=== PATIENT | female | born 1990 | race African-American/Black ===

== ENCOUNTER 2023-08-04 13:28 | Inpatient (IN) | payer BC, SELFPAY ==
[2023-08-04] VITALS (29 sets, daily range): BP systolic 138–201; BP diastolic 84–115; PULSE 85–104; RESP 17–34; TEMP 36.3; O2SAT 90–100
--- NOTE | ~2023-08-04 | XR_ITS ---
EXAM: XR foot RT 2V DATE: 08/04/2023 17:35 HISTORY: heel ulcer . COMPARISON: None available. FINDINGS: Normal mineralization. No fracture or dislocation. No lytic or blastic lesion. Degenerativ e change at the first MTP and multiple midfoot joints, with the suggestion of sclerosis. Plantar enth esopathy. No erosion or periosteal change. Soft tissue defect over the heel. Severe soft tissue swell ing over the entire foot including the forefoot. IMPRESSION: No radiographic evidence of osteomyelitis. Possible neuropathic type change in the midfoot joints. Large heel ulcer and severe soft tissue swelling about the foot. Reviewed, dictated and finalized at location K.
--- NOTE | ~2023-08-04 | MR_ITS ---
MRI of the brain Clinical History: Blindness, vision changes Technique: Axial and sagittal T1-weighted images were acquired. These were followed by axial T2-weigh christina, diffusion weighted, gradient, and FLAIR images. Findings: There is no abnormal signal in the brain parenchyma. No acute infarct, intracranial hemorrh age, or mass lesion. Ventricles and subarachnoid spaces are unremarkable. Orbits are unremarkable. Paranasal sinuses and m astoid air cells are clear. Major intracranial flow voids are intact. Sagittal midline structures are intact. IMPRESSION: No significant abnormality identified. Reviewed, dictated and finalized at location M.
--- NOTE | ~2023-08-04 | XR_ITS ---
Portable chest x-ray Comparison: 08/11/2023 Clinical History: Shortness of breath Findings: Extensive hazy pulmonary disease is similar to prior exam. Cardiomediastinal silhouette i s stable. Bones and soft tissues are unremarkable. Impression: Moderate to severe pulmonary edema pattern, unchanged. Correlate for other possible pulmonary patholo gy, such as infection, pulmonary hemorrhage, or ARDS. Reviewed, dictated and finalized at location . Impression: Moderate to severe pulmonary edema pattern, unchanged. Correlate for other poss ible pulmonary pathology, such as infection, pulmonary hemorrhage, or ARDS.
--- NOTE | ~2023-08-04 | XR_ITS ---
XR chest 1V DATE: 08/04/2023 17:35 INDICATION: Hypoxia TECHNIQUE: AP chest COMPARISON: None FINDINGS: There is pulmonary vascular congestion and redistribution. There are diffuse bilateral pulm onary infiltrates which are more prominent centrally, suggesting pulmonary edema. There are bronchograms in the lower lobes consistent with some consolidation. There is mild prominence of minor fissure suggesting subpleural edema. The cardiac silhouette has a globular enlarged configuration which may be due to cardiomyopathy or pe ricardial effusion. Small pleural effusions are suggested. No pneumothorax. IMPRESSION: Pulmonary edema, small pleural effusions Globular prominent cardiac silhouette, suggesting possible cardiomyopathy or pericardial effusion Reviewed, dictated and finalized at location B. IMPRESSION: Pulmonary edema, small pleural effusions Globular prominent cardiac silhouette, suggesting possible cardiomyopathy or pe ricardial effusion
--- NOTE | ~2023-08-04 | XR_ITS ---
XR chest 1V portable 08/11/2023 13:30 Indication: CHF Procedure: AP portable chest Comparison: 08/04/2023 Findings: Cardiomegaly. Progression of diffuse bilateral airspace disease. Possible small effusion. N o pneumothorax. No acute osseous abnormality. Impression: 1: Progression of diffuse bilateral airspace disease which may represent edema or less likely pneumon ia. Reviewed, dictated and finalized at location B. Impression: 1: Progression of diffuse bilateral airspace disease which may represent edema or less likely pneumonia.
--- NOTE | ~2023-08-04 | CT_ITS ---
EXAMINATION: CTA chest PE abdomen pel DATE: 08/04/2023 19:55 INDICATION: shortness of breath, abdominal pain, lower abdominal and TECHNIQUE: Computed tomography angiography (CTA) of the chest was performed with 100 mL Omnipaque-350 intravenous contrast timed to evaluate the pulmonary arteries, followed by portal venous phase imagi ng of the abdomen and pelvis. Coronal maximum intensity projection 3D-reconstructions were created by the technologist. The dose-length product (DLP) was 2411.13 mGy-cm. Automated exposure control and i terative reconstruction technique were employed. COMPARISON: None. FINDINGS: CHEST: Significant respiratory motion. Lung parenchyma and airways: Diffuse groundglass opacities and septal thickening. Segmental left lowe r lobe opacification. Airways clear. Pleura: Moderate bilateral pleural fluid collections. Heart cardiomegaly. Moderate pericardial fluid collection. Thoracic inlet, axillae and chest wall: Unremarkable. Thoracic aorta: Normal. Mediastinum: Dilated central pulmonary arteries as can be seen with pulmonary arterial hypertension. Heart and pericardium: Normal. Coronary artery calcifications: . Thoracic bones: No acute osseous finding. Pulmonary arteries: Study quality: Study limited by significant respiratory motion beam hardening and quantum mottle. No central or occlusive segmental pulmonary emboli detected. ABDOMEN/PELVIS: Examination is significantly limited by body habitus, body wall edema, and resultant quantum mottle. Liver: Grossly normal. Biliary/Gallbladder: Somewhat limited visualization, grossly normal No bile duct dilation. Pancreas: Limited visualization. Spleen: Normal. Adrenals:No mass. Kidneys: No suspicious mass, obstructing stone, or hydronephrosis. GI tract: No small or large bowel dilation. Appendix not confidently visualized. Mesentery/Peritoneum: No ascites, mass, or free air. Retroperitoneum: No mass. Pelvis: Pelvic organs are within normal limits given exam limitations. Soft Tissues: Severe diffuse body wall edema. Bilateral inguinal lymphadenopathy. Abdominopelvic bones: Somewhat limited visualization, no gross osseous abnormality detected. IMPRESSION: Limited examination as detailed above. No central or occlusive segmental emboli detected. Pulmonary edema. Moderate bilateral pleural effusions. Segmental atelectasis/consolidation the left l niru base. Cardiomegaly. Moderate pericardial effusion. Bilateral inguinal lymphadenopathy. Severe body wall edema. Reviewed, dictated and finalized at location K. IMPRESSION: Limited examination as detailed above. No central or occlusive segmental emboli detected. Pulmonary edema. Moderate bilateral pleural effusions. Segmental atelectasis/co nsolidation the left lung base. Cardiomegaly. Moderate pericardial effusion. Bilateral inguinal lymphadenopathy. Severe body wall edema.
--- NOTE | ~2023-08-04 | CT_ITS ---
EXAMINATION: CT BRAIN W/O DATE: 08/13/2023 13:06 INDICATION: Altered mental status TECHNIQUE: Computed tomography (CT) of the head was performed without intravenous contrast. The dose- length product was 681.00 mGy-cm. Automated exposure control and iterative reconstruction technique w ere employed. COMPARISON: CT dated 08/04/2023 FINDINGS: Normal brain parenchymal volume for age. Normal lange-white differentiation. No acute intrac ranial hemorrhage, infarction, mass or mass effect. No ventriculomegaly or midline shift. Midline sagittal images demonstrate a normal corpus callosum, c raniovertebral junction and sella turcica. Basilar cisterns are patent. Paranasal sinuses and mastoids are pneumatized. No depressed skull fractures. IMPRESSION: 1. No acute intracranial abnormality. Reviewed, dictated and finalized at location B.
--- NOTE | ~2023-08-04 | XR_ITS ---
XR chest port-a-cath/central 08/15/2023 15:43 Indication: Dialysis catheter placement Procedure: AP portable chest Comparison: Comparison to multiple prior studies sequentially, with oldest reviewed study dated 12/2022. Findings: Right IJ dialysis catheter tip near the cavoatrial junction in the condyle aspect of the SV C. There is diffuse bilateral airspace disease slightly improved compared with prior examination. No significant effusion. No pneumothorax. No acute osseous abnormality. Impression: 1: Improved diffuse bilateral airspace disease, most likely improving edema. Pneumonia less favored. Reviewed, dictated and finalized at location A. Impression: 1: Improved diffuse bilateral airspace disease, most likely improving edema. Pn eumonia less favored.
--- NOTE | ~2023-08-04 | CT_ITS ---
EXAMINATION: CT brain wo con DATE: 08/04/2023 17:29 INDICATION: headaches . TECHNIQUE: Computed tomography (CT) of the head was performed without intravenous contrast. The mA wa s adjusted according to patient size. Iterative reconstruction technique was employed. The dose-lengt h product was 605.33 mGy-cm. COMPARISON: None. FINDINGS: No acute intracranial hemorrhage or extra-axial fluid collection. No hydrocephalus, mass, or herniation. No acute ischemic infarct. Unremarkable dural venous sinus attenuation. No acute osseous abnormality. The aerated spaces are clear. IMPRESSION: No acute intracranial process. Reviewed, dictated and finalized at location K.
--- NOTE | ~2023-08-04 | XR_ITS ---
EXAMINATION: XR chest 1V portable INDICATION: Shortness of breath TECHNIQUE: Portable AP chest at 2226 hours COMPARISON: 1427 hours FINDINGS: There is stable cardiomegaly. There are diffuse interstitial and airspace opacities through out all lung zones. No definite pleural effusion or pneumothorax identified. IMPRESSION: 1. Diffuse lung disease, consistent with pneumonia and/or pulmonary edema and/or acute respiratory di stress syndrome (ARDS). 2. Cardiomegaly. Reviewed, dictated and finalized at location F. IMPRESSION: 1. Diffuse lung disease, consistent with pneumonia and/or pulmonary edema and/o r acute respiratory distress syndrome (ARDS). 2. Cardiomegaly.
--- NOTE | ~2023-08-04 | US_ITS ---
EXAMINATION: US venous doppler E DATE: 08/07/2023 20:28 INDICATION: Deep vein thrombosis. TECHNIQUE: Grayscale ultrasound images without and with compression and Doppler ultrasound images of the bilateral upper extremity veins were obtained. COMPARISON: None. FINDINGS: The visualized portions of the right internal jugular vein, subclavian vein, axillary vein, brachial veins, basilic vein, cephalic vein, radial vein, and ulnar vein are patent. The visualized portions of the left internal jugular vein, subclavian vein, axillary vein, brachial v eins, basilic vein, cephalic vein, radial vein, and ulnar vein are patent. IMPRESSION: 1. No deep venous thrombosis. Reviewed, dictated and finalized at location E.
--- NOTE | ~2023-08-04 | XR_ITS ---
CORRECTED REPORT exam description change [facility] [place] This report was recreated on 08/18/23. Original report was EXAMINATION: XR fluoroscopy no charge DATE: 08/15/2023 14:48 INDICATION: Central line placement. TECHNIQUE: A single fluoroscopic view of the chest was obtained. I was not present. Fluoroscopy exposure time was 5 seconds. COMPARISON: Chest single view 08/12/2023 FINDINGS: There is a right internal jugular central venous catheter with tip in right atrium. IMPRESSION: 1. Catheter tip in right atrium. Reviewed, dictated and finalized at location A. MTDD
[2023-08-04 13:55] LABS: Basophils Percent Auto 0.6 % (0.2-1.2); Eosinophils Absolute Auto 0.8 K/mm3 (0-0.3); Eosinophils Percent Auto 11.7 % (0-4.4); Hematocrit 35.7 % (37.0-47.0); Hemoglobin 10.8 g/dL (12.0-15.0); Immature Granulocyte Absolute 0.01 K/mm3 (0.00-0.031); Immature Granulocyte Percent A 0.1 % (0-0.5); Lymphocytes Absolute Auto 1.54 K/mm3 (0.9-3.2); Mean Corpuscular HGB Conc 30.3 g/dl (32-36); Mean Corpuscular Volume 95.7 fl (80-100); Mean Platelet Volume 10.1 fl (7.4-10.4); Monocytes Absolute Auto 0.6 K/mm3 (0.1-0.6); Monocytes Percent Auto 8.7 % (2.6-8.5); Neutrophils Percent Auto 56.9 % (45.5-73.1); Platelet Count Result 355 k/mm3 (150-375); Red Blood Count 3.73 M/mm3 (4.2-5.4); Red Cell Distribution Width 15.6 % (11.5-14.5)
[2023-08-04 14:20] LABS: Alanine Aminotransferase 16 U/L (6-35); Albumin Level 2.1 g/dL (3.5-5.1); Alkaline Phosphatase 115 U/L (38-126); Anion Gap 0 mmol/L (8-16); Aspartate Amino Transferase 24 U/L (14-36); Bilirubin,Total 0.5 mg/dL (0.2-1.3); Blood Urea Nitrogen 17 mg/dL (7-17); Calcium 7.5 mg/dL (8.4-10.2); Carbon Dioxide 29 mmol/L (22-30); Chloride 111 mmol/L (98-107); Estimated CRCL calculation 67 ml/min; Estimated Glomerular Filt Rate 46; Glucose 103 mg/dL (65-110); Potassium 3.7 mmol/L (3.4-5.0); Sodium 140 mmol/L (137-145)
--- NOTE | 2023-08-04 17:10 | ECG_ITS ---
Measurements Intervals [place] Rate: 86 P: 42 SC: 165 QRS: -4 QRSD: 89 T: 19 QT: 367 QTc: 440 Interpretive Statements SINUS RHYTHM NO PREVIOUS ECG AVAILABLE FOR COMPARISON Electronically Signed On 08-05-2023 12:11:58 CDT by Angely Galvez M.D.
[2023-08-04 17:37] LABS: INR 1.5; Partial Thromboplastin Time 34.8 SECONDS (22.3-36.8)
[2023-08-04] MEDS: NITROGLYCERIN OINTMENT 1 INCH DOSE TRANSDERM (18:12)
[2023-08-04] MEDS: FUROSEMIDE INJ 100 MG/10 ML VIAL 80 MG IV PUSH (18:12)
[2023-08-04 18:44] LABS: Lactic Acid Reflex 1.1 mmol/L (0.7-2.0)
[2023-08-04] MEDS: hydrALAZINE HCL 20 MG/ML VIAL IV PUSH (18:55)
[2023-08-04 19:06] LABS: SARS-CoV-2 RNA PCR Negative (Negative)
--- NOTE | 2023-08-04 19:08 | ED.RECABL ---
HPI - Recheck/Abnormal Lab/Rx General Chief Complaint: Recheck/Abnormal Lab/Rx <Tanisha Bautista MD - Last Filed: 08/04/23 19:41> Stated Complaint: head, backm dyspnea, low 02 <Tanisha Bautista MD - Last Filed: 08/04/23 19:41> Time Seen by Provider: 08/04/23 16:41 <Tanisha Bautista MD - Last Filed: 08/04/23 19:41> Source: patient, EMS and RN notes reviewed <Tanisha Bautista MD - Last Filed: 08/04/23 19:41> Mode of arrival: EMS <Tanisha Bautista MD - Last Filed: 08/04/23 19:41> History of Present Illness HPI narrative: This is a 32 year old female with history of DM, hypertension, chronic kidney disease, anemia who presents for evaluation of multiple complaints. Patient reports intermittent frontal headache for 2 weeks. She also reports cough and shortness of breath but denies chest pain. She has also noticed swelling all over her body for weeks. She is unsure of her weight. She lives at [facility] and she states she has been there for 2 months. She reports they have not gotten her out of bed for 3 weeks. She also reports they have not given her medication today. She has right heel ulcer that has been present at least since May. She also has right lower abdominal wound that she states they have been present since March. She has been told that wound is healing. She also reports blindness for several months and she has already been seen by eye doctor. <Tanisha Bautista MD - Last Filed: 08/04/23 19:41> Related Data Home Medications: Home Medications Medication Instructions Recorded Confirmed amlodipine 10 mg tablet mg 08/04/23 carvedilol 12.5 mg tablet mg 08/04/23 furosemide 40 mg tablet mg 08/04/23 insulin lispro 100 unit/mL 08/04/23 subcutaneous solution lisinopril 10 mg tablet mg 08/04/23 nystatin 100,000 unit/gram topical topical 08/04/23 powder polymyxin B sulfate 10,000 08/04/23 unit-trimethoprim 1 mg/mL eye drops potassium chloride 20 mEq meq PO 08/04/23 tablet,extended release(part/cryst) warfarin 4 mg tablet mg 08/04/23 <Tanisha Bautista MD - Last Filed: 08/04/23 19:41> Allergies/Adverse Reactions: Allergies Allergy/AdvReac Type Severity Reaction Status Date / Time No Known Allergies Allergy Verified 08/04/23 13:37 <Tanisha Bautista MD - Last Filed: 08/04/23 19:41> Review of Systems Review of Systems: All systems reviewed & are unremarkable except as noted in HPI and below <Tanisha Bautista MD - Last Filed: 08/04/23 19:41> Constitutional: Constitutional: Denies weakness <Tanisha Bautista MD - Last Filed: 08/04/23 19:41> Cardiovascular: Cardiovascular: Denies syncope, Denies rapid heart rate, Denies irregular heart rhythm, Denies leg edema and Denies dyspnea <Tanisha Bautista MD - Last Filed: 08/04/23 19:41> Respiratory: Respiratory: Denies chest congestion, Reports cough, Denies hemoptysis, Denies excessive phlegm production and Reports dyspnea <Tanisha Bautista MD - Last Filed: 08/04/23 19:41> Gastrointestinal: Gastrointestinal: Denies abdominal pain, Denies hematochezia, Denies diarrhea and Denies vomiting <Tanisha Bautista MD - Last Filed: 08/04/23 19:41> Genitourinary: Genitourinary: Denies hematuria and Denies dysuria <Tanisha Bautista MD - Last Filed: 08/04/23 19:41> Musculoskeletal: Musculoskeletal: Reports back pain, Denies joint swelling, Denies loss of height and Denies muscle weakness <Tanisha Bautista MD - Last Filed: 08/04/23 19:41> Integumentary/Breasts: Skin/Breast: Reports skin ulcer <Tanisha Bautista MD - Last Filed: 08/04/23 19:41> Neurologic: Denies syncope, Reports headache(s), Denies focal weakness and Denies weakness <Tanisha Bautista MD - Last Filed: 08/04/23 19:41> PMFSH Past Medical History Medical History: Medical History (Updated 10/02/23 @ 22:08 by Ayde Carty MD) CHF (congestive heart failure) Chronic heel ulcer Diabetes mellitus Hypertension
[2023-08-04 19:09] LABS: Appearance Urine Clear (Clear); Bacteria Urine 1+ /hpf; Bilirubin Urine Negative (Negative); Blood Urine 3+ (Negative); Color Urine Yellow (Yellow); Glucose Urine UA Trace mg/dL (Negative); Ketones Urine Negative (Negative); Leukocyte Esterase Ur Trace LEU/UL (Negative); Nitrate Urine Negative (Negative); Non Pathogenic Casts 0-2; Protein Urine 3+ mg/dL (Negative); RBC Urine 51-100 /hpf (0-2); Specific Grav Ur 1.009 (1.001-1.035); Squamous Epithelial Cell Urine None seen /hpf (Few); Urobilinogen Urine 0.2 mg/dL (<2.0); WBC Urine 0-5 /hpf; pH Urine 5.5 (5.0-9.0)
[2023-08-04 19:13] LABS: Add Urine Microscopic? YES
--- NOTE | 2023-08-04 19:16 | PC.NURSE ---
Taylack placed for strict I&O of urine output after lasix.
[2023-08-04 19:20] LABS: CRP 1.2 mg/dL (<1.0)
[2023-08-04 19:28] LABS: NT Pro B Type Natriuretic Pept 18500 pg/mL (19.9-100); Troponin I < 0.012 ng/mL (0.000-0.034)
--- NOTE | 2023-08-04 19:49 | PC.NURSE ---
Spoke with lab and verified with Ginny that lab has covid swab at this time.
[2023-08-05] VITALS (27 sets, daily range): BP systolic 99–204; BP diastolic 60–106; PULSE 79–97; RESP 8–30; TEMP 35.7–36.6; O2SAT 90–100; BMI 49.7
--- NOTE | 2023-08-05 02:12 | PM.IMHP ---
H&P: HPI History of Present Illness Date/Time: 08/05/23 02:12 Chief Complaint: Headache, low oxygen saturation Narrative: 32-year-old female with a past medical history including CHF, morbid obesity, insulin-dependent diabetes mellitus, chronic kidney disease, nephrotic range proteinuria, and blindness who presented to the ER from [facility] with 2 days of back pain, headache and low oxygen saturations. Patient reports that she was obese with a BMI around 40 with type 2 diabetes since she was 18. 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 Around November she noticed she had left foot wound. When it did not get better after a couple of weeks her sister took her to the ER at [facility]. 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 She was hospitalized for a couple of months and then discharged to a penitentiary. She has subsequently had intermittent episodes of orthopnea and has been rehospitalized several times for respiratory symptoms. Her most recent hospitalization was 2 months ago when she was hospitalized for 3 weeks. She reports that different doctors have told her that she has heart failure but then other doctors tell her that she does not. She has also been told in the past that her kidney function is bad but it is usually good before she is discharged. She reports that around 4 5 months ago she had sudden vision loss in her left eye. She states that 1 doctor told her she had glaucoma and then another doctor that told her that her vision was completely gone in the quit giving her medications for glaucoma. She states that she has no vision in her left eye. At the time of my evaluation she could only see the red color on my bad Madelin could not read my badge at all. She does not know how long her vision in her right eye has been decreased but it sounds like it is been for a while. She states that she is hopeful she can get some glasses I enough to read. She denies a known history of obstructive sleep apnea but does report a history of snoring. She has never had a sleep study. She she denies a history of anemia but is on iron supplementation. She states that her menstrual cycles have always been irregular and does not know when her last menstrual cycle was because she cannot tell whether she has wet from urine or menses. She states that she does know when she needs to urinate. She denies any dysuria or changes in urinary frequency except for when I gave her Lasix. She states that she has been having increasing shortness of breath for the past week. She reports that the there are multiple times with the penitentiary staff does not give her her medications at all. She has been having intermittent severe headache behind her left eye and in her left holiness. The headache will last for several hours and sometimes all day before resolving. It will go away for several hours and then recur. She denies any nausea or vomiting. She denies any chest pain or palpitations. She does feel fatigued. She denies a known history of peripheral neuropathy and states that she can still feel her right foot. She does have a chronic wound to her right foot as well. She denies a known history of liver disease, thyroid disease stroke or MS. The patient does report a history of intermittent oxygen use in the past but is been a couple of months since she has had to use the oxygen at the penitentiary Source of information comes from ER report, brief penitentiary paperwork and patient report the majority history comes from patient who is good historian but only has fair understanding of her medical history. Review of Systems Review of Systems: 12 systems were reviewed with pertinent positives and negatives per HPI. Except as documented in the HPI, all o
--- NOTE | 2023-08-05 02:50 | PC.NURSE ---
This patient, Gay Canales, was admitted to 3 [facility] Surg Room 325-01. Patient/family oriented to hospital policies and general routines including ID bracelet, bed and alarms, visiting hours, pain management, procedures, bathroom and other care routines, personal items, smoking policy, room service/diet, and visiting hours. Information on how to activate the Rapid Response Team has been discussed. Patient/Family are encouraged to report perceived risks to care and to ask questions if they do not understand what they are told or what they should do.
[2023-08-05] MEDS: lisinopriL 10 MG TABLET PO ×2 (04:04→08:31)
[2023-08-05] MEDS: carvediloL 12.5 MG TABLET PO ×3 (04:04→22:07)
--- NOTE | 2023-08-05 04:08 | PC.NURSE ---
DO Hopen informed of elevated bp since admited to floor bp meds restarted.
--- NOTE | 2023-08-05 06:27 | PC.NURSE ---
consent signed for medical recorders from U, vulcanized fiber unit operator to fax
[2023-08-05 07:18] LABS: Hematocrit 32.5 % (37.0-47.0); Hemoglobin 9.9 g/dL (12.0-15.0); Mean Corpuscular HGB Conc 30.5 g/dl (32-36); Mean Corpuscular Hemoglobin 28.9 pg (26-34); Mean Platelet Volume 9.9 fl (7.4-10.4); Platelet Count Result 329 k/mm3 (150-375); Red Blood Count 3.42 M/mm3 (4.2-5.4); Red Cell Distribution Width 15.5 % (11.5-14.5); White Blood Count 7.4 K/mm3 (4.5-10.0)
[2023-08-05 07:29] LABS: Anion Gap 1 mmol/L (8-16); Blood Urea Nitrogen 16 mg/dL (7-17); Calcium 7.4 mg/dL (8.4-10.2); Carbon Dioxide 28 mmol/L (22-30); Chloride 110 mmol/L (98-107); Estimated CRCL calculation 67 ml/min; Estimated Glomerular Filt Rate 43; Glucose 84 mg/dL (65-110); Magnesium 1.9 mg/dL (1.6-2.3); Potassium 3.4 mmol/L (3.4-5.0); Sodium 139 mmol/L (137-145)
[2023-08-05 08:29] LABS: Glucose Point of Care 81 mg/dl (65-105)
[2023-08-05] MEDS: POTASSIUM CHLORIDE 20 MEQ ER TABLET PO (08:30)
[2023-08-05] MEDS: amLODIPine BESYLATE 5 MG TABLET 10 MG PO (08:31)
[2023-08-05] MEDS: ASCORBIC ACID 500 MG TABLET PO ×2 (08:31→16:55)
[2023-08-05] MEDS: FUROSEMIDE INJ 40 MG/4 ML VIAL IV PUSH ×3 (08:32→22:07)
[2023-08-05] MEDS: FERROUS SULFATE 325 MG TABLET DR BY MOUTH (08:32)
[2023-08-05] MEDS: MULTIVITAMINS THERAPEUTIC TAB (*BKC) 1 TABLET PO (08:32)
[2023-08-05] MEDS: COLLAGENASE OINT 30 GM TUBE 1 APPLIC TOPICAL (08:33)
[2023-08-05] MEDS: TOLNAFTATE 1% POWDER 45 GM BTL 1 APPLIC TOPICAL (08:34)
[2023-08-05 11:43] LABS: Glucose Point of Care 91 mg/dl (65-105)
[2023-08-05] MEDS: WARFARIN (*PBKC) 3 MG TABLET 6 MG PO (16:56)
[2023-08-05 17:13] LABS: Glucose Point of Care 89 mg/dl (65-105)
[2023-08-05] MEDS: CALCIUM CHLOR 1,000MG/100ML NS 1,000 MG/100 ML BAG 100 MG IVPB (18:20)
--- NOTE | 2023-08-05 18:25 | PM.IMPN ---
Progress Note: A&P Assessment and Plan (1) CHF (congestive heart failure): Qualifiers: Heart failure chronicity: acute on chronic Heart failure type: unspecified Qualified Code(s): I50.9 - Heart failure, unspecified Code(s): I50.9 - Heart failure, unspecified Status: Acute (2) Nephrotic range proteinuria: Code(s): R80.9 - Proteinuria, unspecified Status: Acute (3) Diabetic nephropathy with proteinuria: Code(s): E11.21 - Type 2 diabetes mellitus with diabetic nephropathy Status: Acute (4) Obstructive sleep apnea: Code(s): G47.33 - Obstructive sleep apnea (adult) (pediatric) Status: Acute (5) Acute hypoxic respiratory failure: Code(s): J96.01 - Acute respiratory failure with hypoxia Status: Acute (6) Pleural effusion: Code(s): J90 - Pleural effusion, not elsewhere classified Status: Acute (7) Acute pericardial effusion: Code(s): I30.9 - Acute pericarditis, unspecified Status: Acute (8) Malignant hypertension: Code(s): I10 - Essential (primary) hypertension Status: Acute (9) Chronic heel ulcer: Qualifiers: Laterality: right Non-pressure ulcer stage: unspecified non-pressure ulcer stage Qualified Code(s): L97.419 - Non-pressure chronic ulcer of right heel and midfoot with unspecified severity Code(s): L97.409 - Non-pressure chronic ulcer of unspecified heel and midfoot with unspecified severity Status: Acute Plan 1. CHF unknown type [id number]. Can also be elevated from nephrotic syndrome From admitting hospitalist - Patient clinically appears to have congestive heart failure.? She is unsure if she has had prior echocardiogram but received all of her care at [facility].? Will request records from [facility].? Patient has been admitted for active diuresis in the setting of acute hypoxic respiratory failure.? Patient been placed Lasix 40 mg IV b.i.d..? Will monitor strict I&O's and daily weights.? Although daily weights will not likely be accurate as patient will need to be weighed by bed scale.? Will monitor electrolyte panel closely especially in the setting of chronic kidney disease.? Will monitor patient on telemetry per Patient acute hypoxic respiratory failure with symptoms of orthopnea paroxysmal nocturnal dyspnea consistent with heart failure.? Will wean oxygen as tolerated as diuresis proceed.? The patient likely has some underlying obstructive sleep apnea given her body habitus.? Will check ApneaLink monitor. ct lasix 40 mg iv q12 with albumin chaser prio 25% 25g. increase lisinopril to 20 mg/day. stop amlodipine 10 mg/day ct coreg 12.5 mg bid until echo results ct fluid restriction 2L/day 2. Nephrotic syndrome proteinuria with anasarca minimal glucosuria lasix/albumin combination lisinopril 20 mg/day 3. DM f/u hba1c 4. CKD 2/3 recommend consulting nephrology and discussing nephrotic syndrome with them. may need renal biopsy 5. Severe body wall edema wound care. ct diuresis 6. EDD CPAP 5. May need bipap instead 7. Anticoagulation coumadin for provoked UE with picc line per pt at group home stop coumadin start lovenox for dvt prophylaxis (60mg q12 sq) she does have increased risk of dvt with nephrotic syndrome 8. R foot wound start ancef after wound culture of R foot wound care consulted gen surg consulted 9. BL blindness R worse than L unclear cause f/u MR brain without con to r/o tumor Needs an ophthalmology consult Time Spent With Patient Time: 1 hr Subjective Date/time seen: 08/05/23 18:25 Interval history: Reports feeling a little better since she has been here. Not peeing as much as initially because of fluid restriction. Review of Systems Review of Systems: NOS Exam Narrative: Const:?? Other: Morbidly o bese, acute on chr onic ill-appearing , debilitated, sit
[2023-08-05] MEDS: ENOXAPARIN 60 MG/0.6 ML SYRINGE SUB-Q (18:45)
[2023-08-05 19:59] LABS: Hemoglobin A1C 5.9 % (<5.7)
[2023-08-05] MEDS: ALBUMIN HUMAN 25% 25 GM/100 ML 100 ML IVPB (20:21)
[2023-08-05 21:36] LABS: Glucose Point of Care 102 mg/dl (65-105)
[2023-08-05] MEDS: MELATONIN 3 MG TABLET PO (22:06)
[2023-08-05] MEDS: ceFAZolin 1 GM/NS 50 ML 1 GM/50 ML BAG IVPB (22:07)
[2023-08-06] VITALS (12 sets, daily range): BP systolic 138–168; BP diastolic 78–88; PULSE 69–83; RESP 16–22; TEMP 35.7–36.6; O2SAT 92–99
--- NOTE | 2023-08-06 | ECHO_ITS ---
Patient Info Name: Gay Canales Age: 32 years : 1990 Gender: Female Ht: 60 in Wt: 327 lbs BSA: 2.62 m2 HR: 69 bpm BP: 135 / 82 mmHg Heart Rhythm: Sinus Rhythm Technical Quality: Good Exam Date: 08/06/2023 10:30 AM Exam Location: [facility] Patient Status: Outpatient Admit Date: 08/05/2023 Staff Ordering Physician: Burton Bowden MD Director Orange: Chano Fitzgerald RDCS Attending Provider: Nadia Coreas DO Exam Type: CA echo doppler color flow Study Info Indications - hx of acute on chronic chf Complete two-dimensional, color flow and Doppler transthoracic echocardiogram is performed. Summary 1. Complete two-dimensional, color flow and Doppler transthoracic echocardiogram is performed. 2. Normal left ventricular size with moderate concentric hypertrophy. Good systolic function of all segments with ejection fraction of 70%. Grade 2 diastolic dysfunction is present. 3. Left atrial chamber dimension is moderately enlarged. 4. No significant valve disease. 5. Normal estimated pulmonary pressure. 6. Small pericardial effusion with no tamponade physiology. 7. Normal sinus rhythm. Left Ventricle Left ventricular chamber dimension is normal. Left ventricular systolic function is normal, estimated at 65-70%. There is moderately increased left ventricular wall thickness. Left ventricular septal wall motion is normal. The left ventricular diastolic function is grade II diastolic dysfunction. Right Ventricle Right ventricular chamber dimension is normal. Right ventricular systolic function is normal. Left Atria Left atrial chamber dimension is moderately enlarged. Right Atria Right atrial chamber dimension is normal. Aortic Valve The aortic valve is trileaflet. There is no aortic valve sclerosis. There is no aortic valve stenosis. There is no aortic valve regurgitation. Pulmonic Valve The pulmonic valve is normal. There is no pulmonic valve stenosis. There is trace pulmonic regurgitation. Mitral Valve The mitral valve has normal leaflets. There is no mitral valve stenosis. There is no mitral valve regurgitation. Tricuspid Valve The tricuspid valve leaflets are normal. There is no significant tricuspid valve stenosis. There is trace tricuspid valve regurgitation. No pulmonary hypertension, estimated pulmonary arterial systolic pressure is 27 mmHg. Pericardium/Pleural The pericardium appears normal. There is small pericardial effusion. Inferior Vena Cava Normal inferior vena cava with >50% collapse upon inspiration consistent with Empty right atrial pressure, 10 mmHg. Aorta The aortic root size at the sinus of Valsalva is normal. The prox ascending aorta size is normal. Left Ventricular Outflow Tract Name Value Normal LVOT Doppler LVOT Peak Gradient 5 mmHg LVOT Mean Gradient 3 mmHg LVOT VTI 27 cm LVOT VTI/AV VTI Ratio 0.9 Pulmonic Valve Name Value Normal RVOT Doppler RVOT Peak Gradient
[2023-08-06] MEDS: VANCOMYCIN 1,250 MG/NS 250 ML 1,250 MG/250 ML BAG 166.67 MG IVPB ×2 (00:20→02:33)
[2023-08-06] MEDS: ceFAZolin 1 GM/NS 50 ML 1 GM/50 ML BAG IVPB ×2 (05:06→14:04)
[2023-08-06] MEDS: ENOXAPARIN 60 MG/0.6 ML SYRINGE SUB-Q (05:07)
[2023-08-06] MEDS: ALBUMIN HUMAN 25% 25 GM/100 ML 100 ML IVPB ×2 (05:50→20:35)
[2023-08-06 06:18] LABS: Prothrombin Time 23.8 Seconds (11.1-14.7)
[2023-08-06 06:20] LABS: Estimated CRCL calculation 63 ml/min; Estimated Glomerular Filt Rate 40
[2023-08-06 07:41] LABS: Glucose Point of Care 81 mg/dl (65-105)
--- NOTE | 2023-08-06 09:26 | PC.NURSE ---
Dr. Beltre called regarding consult. States Dr. Gates would be more appropriate. I discussed with Dr. Chandler and orders received to change consult to Dr. Gates
[2023-08-06] MEDS: FUROSEMIDE INJ 40 MG/4 ML VIAL IV PUSH ×2 (09:56→22:44)
[2023-08-06] MEDS: FERROUS SULFATE 325 MG TABLET DR BY MOUTH (10:00)
[2023-08-06] MEDS: POTASSIUM CHLORIDE 20 MEQ ER TABLET PO (10:00)
[2023-08-06] MEDS: carvediloL 12.5 MG TABLET PO ×2 (10:01→20:36)
[2023-08-06] MEDS: lisinopriL 20 MG TABLET PO (10:01)
[2023-08-06] MEDS: MULTIVITAMINS THERAPEUTIC TAB (*BKC) 1 TABLET PO (10:01)
[2023-08-06] MEDS: ASCORBIC ACID 500 MG TABLET PO ×2 (10:02→16:47)
[2023-08-06] MEDS: COLLAGENASE OINT 30 GM TUBE 1 APPLIC TOPICAL (10:03)
[2023-08-06] MEDS: EUCERIN CREAM 120 GM JAR 1 APPLIC TOPICAL (10:03)
--- NOTE | 2023-08-06 10:10 | PC.NURSE ---
Dr. Gates returned page. He stated that he is unable to take the consult and to have Dr. Beltre do it. Dr. Beltre's office notified. They called back and stated that he is aware of consult
[2023-08-06 11:45] LABS: Glucose Point of Care 87 mg/dl (65-105)
--- NOTE | 2023-08-06 11:59 | PM.IMPN ---
Progress Note: A&P Assessment and Plan (1) CHF (congestive heart failure): Qualifiers: Heart failure chronicity: acute on chronic Heart failure type: unspecified Qualified Code(s): I50.9 - Heart failure, unspecified Code(s): I50.9 - Heart failure, unspecified Status: Acute (2) Nephrotic range proteinuria: Code(s): R80.9 - Proteinuria, unspecified Status: Acute (3) Diabetic nephropathy with proteinuria: Code(s): E11.21 - Type 2 diabetes mellitus with diabetic nephropathy Status: Acute (4) Obstructive sleep apnea: Code(s): G47.33 - Obstructive sleep apnea (adult) (pediatric) Status: Acute (5) Acute hypoxic respiratory failure: Code(s): J96.01 - Acute respiratory failure with hypoxia Status: Acute (6) Pleural effusion: Code(s): J90 - Pleural effusion, not elsewhere classified Status: Acute (7) Acute pericardial effusion: Code(s): I30.9 - Acute pericarditis, unspecified Status: Acute (8) Malignant hypertension: Code(s): I10 - Essential (primary) hypertension Status: Acute (9) Chronic heel ulcer: Qualifiers: Laterality: right Non-pressure ulcer stage: unspecified non-pressure ulcer stage Qualified Code(s): L97.419 - Non-pressure chronic ulcer of right heel and midfoot with unspecified severity Code(s): L97.409 - Non-pressure chronic ulcer of unspecified heel and midfoot with unspecified severity Status: Acute Plan 1. CHF unknown type [id number]>[id number]. Can also be elevated from nephrotic syndrome From admitting hospitalist - Patient clinically appears to have congestive heart failure.? She is unsure if she has had prior echocardiogram but received all of her care at [facility].? Will request records from [facility].? Patient has been admitted for active diuresis in the setting of acute hypoxic respiratory failure.? Patient been placed Lasix 40 mg IV b.i.d..? Will monitor strict I&O's and daily weights.? Although daily weights will not likely be accurate as patient will need to be weighed by bed scale.? Will monitor electrolyte panel closely especially in the setting of chronic kidney disease.? Will monitor patient on telemetry per Patient acute hypoxic respiratory failure with symptoms of orthopnea paroxysmal nocturnal dyspnea consistent with heart failure.? Will wean oxygen as tolerated as diuresis proceed.? The patient likely has some underlying obstructive sleep apnea given her body habitus.? Will check ApneaLink monitor. ct lasix 40 mg iv q12 with albumin chaser prio 25% 25g. increase lisinopril to 20 mg/day. stop amlodipine 10 mg/day ct coreg 12.5 mg bid until echo results ct fluid restriction 2L/day 2. Nephrotic syndrome proteinuria with anasarca minimal glucosuria lasix/albumin combination lisinopril 20 mg/day Consult Nephrology 3. DM f/u hba1c 4. CKD 2/3 recommend consulting nephrology and discussing nephrotic syndrome with them. may need renal biopsy 5. Severe body wall edema wound care. ct diuresis 6. EDD CPAP 5. May need bipap instead 7. Anticoagulation coumadin for provoked UE with picc line [facility] stop coumadin start lovenox for dvt prophylaxis (60mg q12 sq) she does have increased risk of dvt with nephrotic syndrome 8. R foot wound start ancef after wound culture of R foot wound care consulted gen surg consulted 9. BL blindness R worse than L unclear cause f/u MR brain without con to r/o tumor Needs an ophthalmology consult Subjective Date/time seen: 08/06/23 11:59 Interval history: Denies new complaints. Shortness of breath is a little better. Exam Narrative: Const:?? Other: Morbidly o bese, acute on chr onic ill-appearing , debilitated, sit ting up in bed wit h head of bed at 4 0? ? HENMT:?? Other:
--- NOTE | 2023-08-06 13:34 | WPDNEURCNPN ---
Assessment and Plan Assessment and plan (1) Diabetic neuropathy: Code(s): E11.40 - Type 2 diabetes mellitus with diabetic neuropathy, unspecified Status: Acute Plan 1 congestive heart failure by history to respiratory failure at the time of evaluation in the ER 3 diabetic neuropathy with vasculopathy for local eye problem will definitely need the evaluation as an outpatient for the detailed eye exam. She is already receiving the insulin, carvedilol, lisinopril, furosemide, and covered with antibiotic that is cefazolin and vancomycin. She had the MRI of the brain which revealed no focal lesion. Consult date: 08/06/23 HPI: Gay Canales is a 32 year old female admitted to the hospital through the emergency room for the complaints of difficulties in breathing along with the pains in head and back. He carries the ongoing diagnosis of 1. Diabetes mellitus 2. Hypertension 3. Chronic renal disease 4. Anemia. At the time of visit to the ER this time she was complaining of intermittent headaches of 2 weeks duration with frontal locations along with the complaints of cough and difficulties in breathing and also swelling of all her body. Patient is a resident at [facility] and has been there for 2 months . Her medications included amlodipine 10 mg daily carvedilol 12.5 mg daily furosemide 40 mg daily insulin lisinopril 10 mg daily and Coumadin 4 mg daily she is not allergic to any medication she does have ongoing history of 1. Congestive heart failure 2. Diabetes mellitus for 3 hypertension as mentioned above on initial evaluation in the ER she was documented to have the irregular pupils, right heel ulcer, generalized edema, left lower extremity amputation, noted early drop in the oxygen in the emergency room, good response to IV Lasix, though his severe edema and urination of only 1200cc, vital signs abnormal with blood pressure 190/107 CBC with hemoglobin 10.8 platelet count 355 basic metabolic panel with BUN 17 creatinine 1.6 and UA abnormal patient admitted with diagnosis of congestive heart failure, malignant hypertension with acute pericardial effusion and pleural effusion, finally admitted to the hospital. [facility] Past Medical History Medical History (Updated 08/06/23 @ 13:46 by Noam Freedman MD) CHF (congestive heart failure) Chronic heel ulcer Diabetes mellitus Diabetic nephropathy with proteinuria Hyperlipidemia Hypertension Surgical History Surgical History (Updated 08/05/23 @ 04:08 by Nadia Coreas DO) History of left below knee amputation (~12/2022) Due to osteomyelitis Family History Family History (Updated 08/05/23 @ 03:57 by Nadia Coreas DO) Father Diabetes mellitus Mother Obesity Hypertension Sibling Diabetes mellitus, Onset Age: 28 Sibling Unknown family medical history Does not see a doctor Social History Social History (Updated 08/05/23 @ 04:00 by Nadia Coreas DO) Social History: The patient reports that 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 Since August 2022 she moved in with her sister. She has had a severe significant decline in her health and December 2021 had left above the knee amputation. She has been in out of residential and rehab facilities since that time. She is a lifelong nonsmoker. She used to rarely smoke marijuana. She had no significant alcohol use history. She does not have any children. Code status: DNR/DNI (per patient request) Surrogate decision maker: Kianna uNnez (sister) Smoking status: Never smoker Alcohol intake: never Substance use: former Substance use type: marijuana Lack of Transportation: No Lack of Food: Never True Current Housing: I Have Housing Concerned About Future Housing: No Difficulty Paying Gas/Electric Bills: No Difficulty Paying for Meds: No Currently Unemployed: No Education: High School Diploma/GED Difficulty w/ Childcare or Family Care: No Spiri
--- NOTE | 2023-08-06 14:13 | PM.CNNEP ---
Assessment and Plan Assessment and plan (1) Volume overload: Code(s): E87.70 - Fluid overload, unspecified Status: Chronic Assessment and Plan: as noted by presentation has had several hospitalizations in the last 4 months regarding this issue felt to be secondary to nephrotic range proteinuria/nephrotic syndrome and diastolic heart failure agree with diuresis as tolerated (IV albumin chased by IV lasix) follow I/Os, daily weights, and clinical exam (2) Stage 3b chronic kidney disease: Code(s): N18.32 - Chronic kidney disease, stage 3b Status: Chronic Assessment and Plan: has fluctuated to extremes over the last few months has been as low as 1.2mg/dl to as high as 3.0mg/dl these fluctuations are related to her issues with volume overload, need for diuretics, suspected renal venous HTN, and recurrent infections/wounds baseline creatinine seems to average out to 1.4 - 1.8mg/dl due to diabetes (with associated complications of retinopathy and neuropathy), hypertension, vascular disease and obesity (3) Nephrotic syndrome: Code(s): N04.9 - Nephrotic syndrome with unspecified morphologic changes Status: Chronic Assessment and Plan: noted in the last 4 months: nephrotic range proteinuria (almost 10 grams!) significant issues with edema/swelling hypoalbuminemia (serum albumin as low as 1.5mg/dl in the past) presumably secondary to poorly controlled diabetes in association with hypertension see #1 (4) CHF (congestive heart failure): Qualifiers: Heart failure chronicity: acute on chronic Heart failure type: unspecified Qualified Code(s): I50.9 - Heart failure, unspecified Code(s): I50.9 - Heart failure, unspecified Status: Chronic Assessment and Plan: diastolic dysfunction noted by Echo continue diuresis as tolerated (5) Hypertension: Code(s): I10 - Essential (primary) hypertension Status: Chronic Assessment and Plan: poor control at baseline noted to be in the 200s systolic on admission would aim to keep in the 140 - 160s to prevent overcontrol and renal hypoperfusion hold GABE-I in the setting of diuresis (but would restart eventually given #3) follow trend of hemodynamics (6) Chronic heel ulcer: Qualifiers: Laterality: right Non-pressure ulcer stage: unspecified non-pressure ulcer stage Qualified Code(s): L97.419 - Non-pressure chronic ulcer of right heel and midfoot with unspecified severity Code(s): L97.409 - Non-pressure chronic ulcer of unspecified heel and midfoot with unspecified severity Status: Chronic Assessment and Plan: has been an issues for the last 2 - 3 months was recommended to have right BKA by Vascular Surgery at [facility] (and another hospital) but she refused this intervention was treated with 6 weeks of IV antibiotics already (as recommended by [facility] Infectious Disease) General Surgery consulted for further evaluation (7) Diabetes mellitus with chronic kidney disease: Code(s): E11.22 - Type 2 diabetes mellitus with diabetic chronic kidney disease Status: Chronic Assessment and Plan: noted poor control with associated complications (retinopathy, neuropathy, nephropathy) follow accu-cheks glycemic control as per hospitalists Discussed case with Dr. Chandler. Long extensive discussion (greater than 20 minutes) with the patient regarding her complex medical history as well as review of the electronic medical records from [facility] as well as [facility] from her multiple hospitalizations since April of 2023 as noted in the HPI. I will continue to follow the patient with you while she remains hospitalized make further recommendations as needed. Thank you for allowing me to participate in the care of this patient. History of Present Illness Reason for Consult Consult date:
--- NOTE | 2023-08-06 14:13 | P.CONNP_ITS ---
Assessment and Plan Assessment and plan (1) Volume overload: Code(s): E87.70 - Fluid overload, unspecified Status: Chronic Assessment and Plan: * as noted by presentation * has had several hospitalizations in the last 4 months regarding this issue * felt to be secondary to nephrotic range proteinuria/nephrotic syndrome and diastolic heart failure * agree with diuresis as tolerated (IV albumin chased by IV lasix) * follow I/Os, daily weights, and clinical exam (2) Stage 3b chronic kidney disease: Code(s): N18.32 - Chronic kidney disease, stage 3b Status: Chronic Assessment and Plan: * has fluctuated to extremes over the last few months * has been as low as 1.2mg/dl to as high as 3.0mg/dl * these fluctuations are related to her issues with volume overload, need for diuretics, suspected renal venous HTN, and recurrent infections/wounds * baseline creatinine seems to average out to 1.4 - 1.8mg/dl * due to diabetes (with associated complications of retinopathy and neuropathy), hypertension, vascular disease and obesity (3) Nephrotic syndrome: Code(s): N04.9 - Nephrotic syndrome with unspecified morphologic changes Status: Chronic Assessment and Plan: * noted in the last 4 months: * nephrotic range proteinuria (almost 10 grams!) * significant issues with edema/swelling * hypoalbuminemia (serum albumin as low as 1.5mg/dl in the past) * presumably secondary to poorly controlled diabetes in association with hypertension * see #1 (4) CHF (congestive heart failure): Qualifiers: Heart failure chronicity: acute on chronic Heart failure type: unspecified Qualified Code(s): I50.9 - Heart failure, unspecified Code(s): I50.9 - Heart failure, unspecified Status: Chronic Assessment and Plan: * diastolic dysfunction noted by Echo * continue diuresis as tolerated (5) Hypertension: Code(s): I10 - Essential (primary) hypertension Status: Chronic Assessment and Plan: * poor control at baseline * noted to be in the 200s systolic on admission * would aim to keep in the 140 - 160s to prevent overcontrol and renal hypoperfusion * hold GABE-I in the setting of diuresis (but would restart eventually given #3) * follow trend of hemodynamics (6) Chronic heel ulcer: Qualifiers: Laterality: right Non-pressure ulcer stage: unspecified non-pressure ulcer stage Qualified Code(s): L97.419 - Non-pressure chronic ulcer of right heel and midfoot with unspecified severity Code(s): L97.409 - Non-pressure chronic ulcer of unspecified heel and midfoot with unspecified severity Status: Chronic Assessment and Plan: * has been an issues for the last 2 - 3 months * was recommended to have right BKA by Vascular Surgery at [facility] (and another hospital) but she refused this intervention * was treated with 6 weeks of IV antibiotics already (as recommended by [facility] Infectious Disease) * General Surgery consulted for further evaluation (7) Diabetes mellitus with chronic kidney disease: Code(s): E11.22 - Type 2 diabetes mellitus with diabetic chronic kidney disease Status: Chronic Assessment and Plan: * noted poor control with associated complications (retinopathy, neuropathy, nephropathy) * follow accu-cheks * glycemic control as per hospitalists Discussed case with Dr. Chandler. Long extensive discussion (greater than 20 minutes) with the patient regarding her complex medical history as well as review of the electronic medical recor
--- NOTE | 2023-08-06 16:21 | PM.CNGS ---
Assessment and Plan Assessment and plan (1) Chronic heel ulcer: Qualifiers: Laterality: right Non-pressure ulcer stage: unspecified non-pressure ulcer stage Qualified Code(s): L97.419 - Non-pressure chronic ulcer of right heel and midfoot with unspecified severity Code(s): L97.409 - Non-pressure chronic ulcer of unspecified heel and midfoot with unspecified severity Status: Chronic Assessment and Plan: Necrotic right heel ulcer that on probing with my finger goes back to the calcaneus. There is no associated swelling or warmth. There does not appear to be surrounding cellulitis. There is an odor and lot of necrotic tissue in the ulcer. Plan to go ahead and take the patient to the operating room tomorrow for excisional debridement. I discussed this with her. She agrees to go ahead. Heel protectors would be helpful postoperatively. (2) Diabetic neuropathy: Code(s): E11.40 - Type 2 diabetes mellitus with diabetic neuropathy, unspecified Status: Chronic Assessment and Plan: Chronically deformed foot (3) CHF (congestive heart failure): Qualifiers: Heart failure chronicity: acute on chronic Heart failure type: unspecified Qualified Code(s): I50.9 - Heart failure, unspecified Code(s): I50.9 - Heart failure, unspecified Status: Acute Assessment and Plan: Diagnosis on admission (4) Diabetic nephropathy with proteinuria: Code(s): E11.21 - Type 2 diabetes mellitus with diabetic nephropathy Status: Chronic (5) Chronic 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: Code(s): 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 Warfarin dose increased to 6 mg but has been discontinued. She is on therapeutic dose of Lovenox. Stop Lovenox for surgery. Reasons for 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 unclear to me. History of Present Illness Consult details Consult date: 08/06/23 Reason for consult: other (Necrotic right heel ulcer) Requesting physician: Burton Bowden MD Narrative: Patient is an unfortunate 32-year-old woman with longstanding diabetes and multiple complications as well as other medical illnesses. She resides at [facility]. She had a left above knee amputation last December due to bone infection. She has been in a wheelchair since then. She came to the emergency room night before last with a frontal headache, shortness of breath, cough and edema. It appears she has congestive heart failure. She also has a heel ulcer on her right foot that has been present for some time. She was receiving Santyl dressing changes. I was asked to see her in consultation regarding this heel ulcer. Plain films of her right foot from the emergency room on 08/04/2023 were negative for osteomyelitis. The did show chronic changes consistent with diabetic neuropathy. Patient does say she has feeling in her right foot but the heel ulcer does not hurt and she cannot feel it at all. Review of Systems Review of Systems: All systems reviewed & are unremarkable except as noted in HPI and below (HPI and those items noted below) Constitutional: Constitutional: Denies chills and Denies fever(s) Cardiovascular: Cardiovascular: Denies chest pain, Denies diaphoresis, Reports dyspnea and Denies paroxysmal nocturnal dyspnea Respiratory: Respiratory: Denies chest congestion, Reports cough and Reports dyspnea Musculoskeletal: Musculoskeletal: Reports as per HPI Integumentary/Breasts: Skin/Breast: Denies lesions and Denies rash Neurologic: Reports as per HPI Hematologic/Lymphatic: Hematologic/Lymphatic: Reports other (Patient being anticoagulated with warfarin.) [facility] Past Medical History Medical History (Updated 08/06/23 @ 16:46 by Tyrel Beltre MD) CHF (congestive heart failure) Chronic heel ulcer Diabetes mellitus Diabetic nephropathy with proteinuria Hyperlipidemia Hypertension Surgical History [facility]
[2023-08-06 16:44] LABS: Glucose Point of Care 90 mg/dl (65-105)
[2023-08-06] MEDS: CEFEPIME 2 GM/NS 50 ML 2 GM/50 ML BAG IVPB (16:47)
[2023-08-06 17:09] LABS: Creatinine Urine 49.1 mg/dL; Urea Random Urine 121 MG/DL
[2023-08-06 17:10] LABS: Eosinophil Urine None Seen % (None Seen); Urine Eos QC 2nd Tech Confirmed
[2023-08-06 17:17] LABS: Sodium Urine Random 110 meq/L
[2023-08-06 17:27] LABS: Total Protein Urine Random 576 mg/dL; Ur Ttl Prot Creatinine Ratio 11.73 mg/mg (0-0.20)
[2023-08-06] MEDS: MELATONIN 3 MG TABLET PO (20:35)
[2023-08-06 21:03] LABS: Glucose Point of Care 146 mg/dl (65-105)
[2023-08-07] VITALS (13 sets, daily range): BP systolic 155–187; BP diastolic 84–98; PULSE 73–89; RESP 16–35; TEMP 36.2–36.7; O2SAT 90–98
[2023-08-07] MEDS: CEFEPIME 2 GM/NS 50 ML 2 GM/50 ML BAG IVPB ×2 (05:02→17:19)
[2023-08-07 06:40] LABS: INR 1.9; Prothrombin Time 22.9 Seconds (11.1-14.7)
[2023-08-07 06:43] LABS: Alanine Aminotransferase 12 U/L (6-35); Albumin Level 2.6 g/dL (3.5-5.1); Alkaline Phosphatase 89 U/L (38-126); Anion Gap 1 mmol/L (8-16); Aspartate Amino Transferase 23 U/L (14-36); Bilirubin,Total 0.3 mg/dL (0.2-1.3); Blood Urea Nitrogen 18 mg/dL (7-17); Calcium 7.9 mg/dL (8.4-10.2); Carbon Dioxide 31 mmol/L (22-30); Chloride 109 mmol/L (98-107); Estimated CRCL calculation 52 ml/min; Estimated Glomerular Filt Rate 32; Glucose 134 mg/dL (65-110); Potassium 3.6 mmol/L (3.4-5.0); Sodium 141 mmol/L (137-145)
[2023-08-07 06:45] LABS: Basophils Percent Auto 0.3 % (0.2-1.2); Eosinophils Absolute Auto 0.8 K/mm3 (0-0.3); Eosinophils Percent Auto 11.2 % (0-4.4); Hematocrit 30.2 % (37.0-47.0); Hemoglobin 9.2 g/dL (12.0-15.0); Immature Granulocyte Absolute 0.02 K/mm3 (0.00-0.031); Immature Granulocyte Percent A 0.3 % (0-0.5); Lymphocytes Absolute Auto 1.23 K/mm3 (0.9-3.2); Lymphocytes Percent Auto 17.3 % (18.3-44.2); Mean Corpuscular HGB Conc 30.5 g/dl (32-36); Mean Corpuscular Hemoglobin 29.5 pg (26-34); Mean Corpuscular Volume 96.8 fl (80-100); Mean Platelet Volume 10.4 fl (7.4-10.4); Monocytes Absolute Auto 0.7 K/mm3 (0.1-0.6); Monocytes Percent Auto 9.3 % (2.6-8.5); Neutrophils Absolute Auto 4.4 K/mm3 (1.3-6.7); Neutrophils Percent Auto 61.6 % (45.5-73.1); Platelet Count Result 311 k/mm3 (150-375); Red Blood Count 3.12 M/mm3 (4.2-5.4); Red Cell Distribution Width 15.6 % (11.5-14.5); White Blood Count 7.1 K/mm3 (4.5-10.0)
[2023-08-07 08:22] LABS: Glucose Point of Care 142 mg/dl (65-105)
[2023-08-07] MEDS: ALBUMIN HUMAN 25% 25 GM/100 ML 100 ML IVPB ×2 (08:38→20:55)
[2023-08-07] MEDS: EUCERIN CREAM 120 GM JAR 1 APPLIC TOPICAL (08:53)
[2023-08-07] MEDS: COLLAGENASE OINT 30 GM TUBE 1 APPLIC TOPICAL (08:53)
[2023-08-07] MEDS: FUROSEMIDE INJ 40 MG/4 ML VIAL IV PUSH ×3 (10:27→22:48)
--- NOTE | 2023-08-07 10:48 | PM.IMPN ---
Progress Note: A&P Assessment and Plan (1) CHF (congestive heart failure): Qualifiers: Heart failure chronicity: acute on chronic Heart failure type: unspecified Qualified Code(s): I50.9 - Heart failure, unspecified Code(s): I50.9 - Heart failure, unspecified Status: Acute (2) Nephrotic range proteinuria: Code(s): R80.9 - Proteinuria, unspecified Status: Acute (3) Diabetic nephropathy with proteinuria: Code(s): E11.21 - Type 2 diabetes mellitus with diabetic nephropathy Status: Chronic (4) Obstructive sleep apnea: Code(s): G47.33 - Obstructive sleep apnea (adult) (pediatric) Status: Acute (5) Acute hypoxic respiratory failure: Code(s): J96.01 - Acute respiratory failure with hypoxia Status: Acute (6) Pleural effusion: Code(s): J90 - Pleural effusion, not elsewhere classified Status: Acute (7) Acute pericardial effusion: Code(s): I30.9 - Acute pericarditis, unspecified Status: Acute (8) Malignant hypertension: Code(s): I10 - Essential (primary) hypertension Status: Acute (9) Chronic heel ulcer: Qualifiers: Laterality: right Non-pressure ulcer stage: unspecified non-pressure ulcer stage Qualified Code(s): L97.419 - Non-pressure chronic ulcer of right heel and midfoot with unspecified severity Code(s): L97.409 - Non-pressure chronic ulcer of unspecified heel and midfoot with unspecified severity Status: Chronic Plan 1. CHF echo shows diastolic dysfunction continue diuresis complicated by nephrotic syndrome 2. Nephrotic syndrome proteinuria with anasarca minimal glucosuria lasix/albumin combination lisinopril 20 mg/day Consult Nephrology 3. DM f/u hba1c 4. CKD 2/3 recommend consulting nephrology and discussing nephrotic syndrome with them. may need renal biopsy 5. Severe body wall edema wound care. ct diuresis 6. EDD CPAP 5. May need bipap instead 7. Anticoagulation coumadin for provoked UE with picc line per pt at alf stop coumadin start lovenox for dvt prophylaxis (60mg q12 sq) she does have increased risk of dvt with nephrotic syndrome ? need to resume AC, will check UE US 8. R foot wound start ancef after wound culture of R foot wound care consulted gen surg consulted 9. BL blindness R worse than L unclear cause f/u MR brain without con to r/o tumor Needs an ophthalmology consult as outpaitient Subjective Date/time seen: 08/07/23 10:48 Interval history: no new complaints Exam Narrative: Const:?? Other: Morbidly o bese, acute on chr onic ill-appearing , debilitated, sit ting up in bed wit h head of bed at 4 0? ? HENMT:?? Other: head is no rmocephalic atraum atic ? Eyes:?? Other: Pupils are equal, slowed twila ction, marked conj unctival erythema of the left eye, i rregular movements of the right eye ? Neck:?? Other: Positive J VD, large neck cir cumference, trache a midline ? Chest:?? Other: Nontender palpation, dried f laking skin from t he breasts bilater ally ? Resp:?? Other: Decreased breath sounds at t he bases, crackles bilaterally ? Cardio:?? Other: Irregular rhythm, regular ra te, 2+ bilateral r adial pulses, weak ly palpable right
[2023-08-07 11:50] LABS: Vancomycin Trough 23.5 ug/mL (10.0-20.0)
--- NOTE | 2023-08-07 13:10 | P.PNNP_ITS ---
Progress Note: A&P Assessment and Plan (1) Volume overload: Code(s): E87.70 - Fluid overload, unspecified Status: Chronic Assessment and Plan: * as noted by presentation * has had several hospitalizations in the last 4 months regarding this issue * felt to be secondary to nephrotic range proteinuria/nephrotic syndrome and diastolic heart failure * continue with diuresis as tolerated (IV albumin chased by IV lasix) * follow I/Os, daily weights, and clinical exam (2) Stage 3b chronic kidney disease: Code(s): N18.32 - Chronic kidney disease, stage 3b Status: Chronic Assessment and Plan: * has fluctuated to extremes over the last few months * has been as low as 1.2mg/dl to as high as 3.0mg/dl * these fluctuations are related to her issues with volume overload, need for diuretics, suspected renal venous HTN, and recurrent infections/wounds * baseline creatinine seems to average out to 1.4 - 1.8mg/dl * due to diabetes (with associated complications of retinopathy and neuropathy), hypertension, vascular disease and obesity (3) Nephrotic syndrome: Code(s): N04.9 - Nephrotic syndrome with unspecified morphologic changes Status: Chronic Assessment and Plan: * noted in the last 4 months: * nephrotic range proteinuria (almost 10 grams!) * significant issues with edema/swelling * hypoalbuminemia (serum albumin as low as 1.5mg/dl in the past) * presumably secondary to poorly controlled diabetes in association with hypertension * see #1 (4) CHF (congestive heart failure): Qualifiers: Heart failure chronicity: acute on chronic Heart failure type: unspecified Qualified Code(s): I50.9 - Heart failure, unspecified Code(s): I50.9 - Heart failure, unspecified Status: Chronic Assessment and Plan: * diastolic dysfunction noted by Echo * continue diuresis as tolerated (5) Hypertension: Code(s): I10 - Essential (primary) hypertension Status: Chronic Assessment and Plan: * poor control at baseline * noted to be in the 200s systolic on admission * would aim to keep in the 140 - 160s to prevent overcontrol and renal hypoperfusion * hold GABE-I in the setting of diuresis (but would restart eventually given #3) * follow trend of hemodynamics (6) Chronic heel ulcer: Qualifiers: Laterality: right Non-pressure ulcer stage: unspecified non-pressure ulcer stage Qualified Code(s): L97.419 - Non-pressure chronic ulcer of right heel and midfoot with unspecified severity Code(s): L97.409 - Non-pressure chronic ulcer of unspecified heel and midfoot with unspecified severity Status: Chronic Assessment and Plan: * has been an issues for the last 2 - 3 months * was recommended to have right BKA by Vascular Surgery at [facility] (and another hospital) but she refused this intervention * was treated with 6 weeks of IV antibiotics already (as recommended by [facility] Infectious Disease) * General Surgery consulted for further evaluation (7) Diabetes mellitus with chronic kidney disease: Code(s): E11.22 - Type 2 diabetes mellitus with diabetic chronic kidney disease Status: Chronic Assessment and Plan: * noted poor control with associated complications (retinopathy, neuropathy, nephropathy) * follow accu-cheks * glycemic control as per hospitalists Will continue to follow. Subjective Date/time seen: 08/07/23 13:10 Interval history: Follow-up for chronic kidney disease, volume overload/anasarca, and nep
--- NOTE | 2023-08-07 13:10 | PM.PNNEP ---
Progress Note: A&P Assessment and Plan (1) Volume overload: Code(s): E87.70 - Fluid overload, unspecified Status: Chronic Assessment and Plan: as noted by presentation has had several hospitalizations in the last 4 months regarding this issue felt to be secondary to nephrotic range proteinuria/nephrotic syndrome and diastolic heart failure continue with diuresis as tolerated (IV albumin chased by IV lasix) follow I/Os, daily weights, and clinical exam (2) Stage 3b chronic kidney disease: Code(s): N18.32 - Chronic kidney disease, stage 3b Status: Chronic Assessment and Plan: has fluctuated to extremes over the last few months has been as low as 1.2mg/dl to as high as 3.0mg/dl these fluctuations are related to her issues with volume overload, need for diuretics, suspected renal venous HTN, and recurrent infections/wounds baseline creatinine seems to average out to 1.4 - 1.8mg/dl due to diabetes (with associated complications of retinopathy and neuropathy), hypertension, vascular disease and obesity (3) Nephrotic syndrome: Code(s): N04.9 - Nephrotic syndrome with unspecified morphologic changes Status: Chronic Assessment and Plan: noted in the last 4 months: nephrotic range proteinuria (almost 10 grams!) significant issues with edema/swelling hypoalbuminemia (serum albumin as low as 1.5mg/dl in the past) presumably secondary to poorly controlled diabetes in association with hypertension see #1 (4) CHF (congestive heart failure): Qualifiers: Heart failure chronicity: acute on chronic Heart failure type: unspecified Qualified Code(s): I50.9 - Heart failure, unspecified Code(s): I50.9 - Heart failure, unspecified Status: Chronic Assessment and Plan: diastolic dysfunction noted by Echo continue diuresis as tolerated (5) Hypertension: Code(s): I10 - Essential (primary) hypertension Status: Chronic Assessment and Plan: poor control at baseline noted to be in the 200s systolic on admission would aim to keep in the 140 - 160s to prevent overcontrol and renal hypoperfusion hold GABE-I in the setting of diuresis (but would restart eventually given #3) follow trend of hemodynamics (6) Chronic heel ulcer: Qualifiers: Laterality: right Non-pressure ulcer stage: unspecified non-pressure ulcer stage Qualified Code(s): L97.419 - Non-pressure chronic ulcer of right heel and midfoot with unspecified severity Code(s): L97.409 - Non-pressure chronic ulcer of unspecified heel and midfoot with unspecified severity Status: Chronic Assessment and Plan: has been an issues for the last 2 - 3 months was recommended to have right BKA by Vascular Surgery at [facility] (and another hospital) but she refused this intervention was treated with 6 weeks of IV antibiotics already (as recommended by [facility] Infectious Disease) General Surgery consulted for further evaluation (7) Diabetes mellitus with chronic kidney disease: Code(s): E11.22 - Type 2 diabetes mellitus with diabetic chronic kidney disease Status: Chronic Assessment and Plan: noted poor control with associated complications (retinopathy, neuropathy, nephropathy) follow accu-cheks glycemic control as per hospitalists Will continue to follow. Subjective Date/time seen: 08/07/23 13:10 Interval history: Follow-up for chronic kidney disease, volume overload/anasarca, and nephrotic syndrome. No real significant change noted; I/Os not accurate so difficult to know if she is in negative fluid balance; still with significant swelling/edema; renal function a tad worse by AM labs; still feels a bit short of breath as well. Exam Narrative: General: Large AA female sitting in bed in NAD Heart: normal S1 and S2; no rub Lungs: coarse with bibasilar crackles Abdomen: obese but soft, nontender, nondistended,
[2023-08-07 16:35] LABS: Glucose Point of Care 107 mg/dl (65-105)
[2023-08-07] MEDS: ASCORBIC ACID 500 MG TABLET PO (17:20)
[2023-08-07] MEDS: MELATONIN 3 MG TABLET PO (20:58)
[2023-08-07] MEDS: hydrALAZINE HCL 20 MG/ML VIAL 10 MG IV PUSH (20:58)
[2023-08-07] MEDS: carvediloL 12.5 MG TABLET PO (20:59)
[2023-08-07 21:01] LABS: Glucose Point of Care 159 mg/dl (65-105)
--- NOTE | 2023-08-07 22:29 | PCRCNOTE ---
Placed Pt on CPAP of 5 with 5 liters bleed in per order.
--- NOTE | 2023-08-07 22:32 | P.PNCROSS_ITS ---
Event Note Event Note Event Note: Patient reports intermittent shortness of breath throughout today. However reinaldo und 7:00 p.m. she became increasingly tachypneic and work of breathing. When patient alerted the staff later in the night that she was short of breath her oxygen saturation was 72% on 1L nasal cannula. Currently requiring 5L nasal cannula to maintain an oxygen saturation of 95%. Physical exam revealed crackles in bilateral upper, mid, and lower lobes with diminished breath sounds on the left. objective work of breathing observed, subjective shortness of breath endorsed. Patient continues to have anasarca, 2/3+ pitting edema to her right lower extremity. She is A/Ox4. +/- productive cough producing bloody sputum. currently receiving albumin with scheduled Lasix 40 mg IV post-albumin infusion, additional 40 mg IV x1 given. Discussed care with patient, she is agreeable to BiPAP. current cumulative I&O balance is +1331 mL. continue to monitor strict I&Os. Reassessment at 0310: patient's work of breathing has decreased, resting more comfortably. On exam crackles remain present throughout all lung nunn. Left upper no longer diminished. Crackles decreased in upper lobes. Critical Care Time: I personally spent 50 minutes of direct patient care including (but not limited to) the physical examination, decision-making, bedside evaluation, review of medical records, review of labs and imaging, discussion with nursing staff and other providers for collaborative, critical care management of this patient.
[2023-08-08] VITALS (13 sets, daily range): BP systolic 157–175; BP diastolic 62–87; PULSE 77–87; RESP 16–34; TEMP 35.9–36.8; O2SAT 90–100
--- NOTE | 2023-08-08 00:30 | PCRCNOTE ---
Pt taken off CPAP and placed on Vision unit with BIPAP settings per order. 10/5 R-10 50%
[2023-08-08] MEDS: CEFEPIME 2 GM/NS 50 ML 2 GM/50 ML BAG IVPB ×3 (05:14→22:59)
[2023-08-08 06:42] LABS: Basophils Percent Auto 0.2 % (0.2-1.2); Eosinophils Absolute Auto 0.4 K/mm3 (0-0.3); Eosinophils Percent Auto 4.8 % (0-4.4); Hematocrit 29.5 % (37.0-47.0); Hemoglobin 9.1 g/dL (12.0-15.0); Immature Granulocyte Absolute 0.03 K/mm3 (0.00-0.031); Immature Granulocyte Percent A 0.3 % (0-0.5); Lymphocytes Absolute Auto 1.05 K/mm3 (0.9-3.2); Lymphocytes Percent Auto 12.1 % (18.3-44.2); Mean Corpuscular HGB Conc 30.8 g/dl (32-36); Mean Corpuscular Hemoglobin 29.7 pg (26-34); Mean Corpuscular Volume 96.4 fl (80-100); Monocytes Absolute Auto 0.6 K/mm3 (0.1-0.6); Monocytes Percent Auto 7.2 % (2.6-8.5); Neutrophils Absolute Auto 6.5 K/mm3 (1.3-6.7); Neutrophils Percent Auto 75.4 % (45.5-73.1); Platelet Count Result 329 k/mm3 (150-375); Red Blood Count 3.06 M/mm3 (4.2-5.4); Red Cell Distribution Width 15.7 % (11.5-14.5); White Blood Count 8.7 K/mm3 (4.5-10.0)
[2023-08-08 06:53] LABS: Estimated CRCL calculation 54 ml/min; Estimated Glomerular Filt Rate 34
[2023-08-08 06:54] LABS: INR 1.7; Prothrombin Time 20.7 Seconds (11.1-14.7)
[2023-08-08 06:59] LABS: Alanine Aminotransferase 11 U/L (6-35); Albumin Level 2.7 g/dL (3.5-5.1); Alkaline Phosphatase 74 U/L (38-126); Anion Gap 4 mmol/L (8-16); Aspartate Amino Transferase 23 U/L (14-36); Bilirubin,Total 0.7 mg/dL (0.2-1.3); Blood Urea Nitrogen 19 mg/dL (7-17); Carbon Dioxide 29 mmol/L (22-30); Chloride 109 mmol/L (98-107); Estimated CRCL calculation 57 ml/min; Estimated Glomerular Filt Rate 35; Glucose 119 mg/dL (65-110); Potassium 3.9 mmol/L (3.4-5.0); Sodium 142 mmol/L (137-145)
[2023-08-08 07:54] LABS: Glucose Point of Care 121 mg/dl (65-105)
--- NOTE | 2023-08-08 08:16 | PC.NURSE ---
Spoke with surgical nurses JIMMIE Ochoa and JIMMIE Meeks regarding events over night and increased oxygen demand. Plan is to postpone procedure at this time. Provider Ramesh sanchez.
[2023-08-08] MEDS: ALBUMIN HUMAN 25% 25 GM/100 ML 100 ML IVPB ×2 (08:36→21:20)
[2023-08-08] MEDS: POTASSIUM CHLORIDE 20 MEQ ER TABLET PO (08:36)
[2023-08-08] MEDS: ASCORBIC ACID 500 MG TABLET PO ×2 (08:37→17:06)
[2023-08-08] MEDS: lisinopriL 20 MG TABLET PO (08:37)
[2023-08-08] MEDS: FERROUS SULFATE 325 MG TABLET DR BY MOUTH (08:37)
[2023-08-08] MEDS: MULTIVITAMINS THERAPEUTIC TAB (*BKC) 1 TABLET PO (08:38)
[2023-08-08] MEDS: carvediloL 12.5 MG TABLET PO ×2 (08:39→21:28)
[2023-08-08] MEDS: COLLAGENASE OINT 30 GM TUBE 1 APPLIC TOPICAL (08:39)
[2023-08-08] MEDS: EUCERIN CREAM 120 GM JAR 1 APPLIC TOPICAL (08:39)
[2023-08-08] MEDS: FUROSEMIDE INJ 40 MG/4 ML VIAL IV PUSH (10:33)
--- NOTE | 2023-08-08 11:28 | P.PNNP_ITS ---
Progress Note: A&P Assessment and Plan (1) Volume overload: Code(s): E87.70 - Fluid overload, unspecified Status: Chronic Assessment and Plan: * anasarca noted on presentation (but appears a chronic issue) * has had several hospitalizations in the last 4 months regarding this issue * felt to be secondary to nephrotic range proteinuria/nephrotic syndrome and diastolic heart failure * agree with diuresis as tolerated * given events overnight, change to IV bumex 2mg bid * depending on response, consider adding metolazone as well * follow I/Os, daily weights, and clinical exam (2) Stage 3b chronic kidney disease: Code(s): N18.32 - Chronic kidney disease, stage 3b Status: Chronic Assessment and Plan: * has fluctuated to extremes over the last few months * has been as low as 1.2mg/dl to as high as 3.0mg/dl * these fluctuations are related to her issues with volume overload, need for diuretics, suspected renal venous HTN, and recurrent infections/wounds * baseline creatinine seems to average out to 1.4 - 1.8mg/dl * due to diabetes (with associated complications of retinopathy and neuropathy), hypertension, vascular disease and obesity * expect further fluctuations in creatinine with this admission/hospitalization as well (need for aggressive diuresis, infection/bacteremia, wound care...etc) (3) Nephrotic syndrome: Code(s): N04.9 - Nephrotic syndrome with unspecified morphologic changes Status: Chronic Assessment and Plan: * noted in the last 4 months: * nephrotic range proteinuria (> 11 grams on this admission) * significant issues with edema/swelling * hypoalbuminemia (serum albumin as low as 1.5mg/dl in the past) * presumably secondary to poorly controlled diabetes in association with hyper tension complicated by poor nutrition status * see #1 (4) CHF (congestive heart failure): Qualifiers: Heart failure chronicity: acute on chronic Heart failure type: unspecified Qualified Code(s): I50.9 - Heart failure, unspecified Code(s): I50.9 - Heart failure, unspecified Status: Chronic Assessment and Plan: * diastolic dysfunction noted by Echo * continue diuresis as tolerated (5) Hypertension: Code(s): I10 - Essential (primary) hypertension Status: Chronic Assessment and Plan: * poor control at baseline * noted to be in the 200s systolic on admission * would aim to keep in the 140 - 160s to prevent overcontrol and renal hypoperfusion * hold GABE-I in the setting of diuresis (but would restart eventually given #3) * follow trend of hemodynamics (6) Chronic heel ulcer: Qualifiers: Laterality: right Non-pressure ulcer stage: unspecified non-pressure ulcer stage Qualified Code(s): L97.419 - Non-pressure chronic ulcer of right heel and midfoot with unspecified severity Code(s): L97.409 - Non-pressure chronic ulcer of unspecified heel and midfoot with un specified severity Status: Chronic Assessment and Plan: * has been an issues for the last 2 - 3 months * was recommended to have right BKA by Vascular Surgery at [facility] (as well as by other surgeons at another hospital) but she refused this intervention * was treated with 6 weeks of IV antibiotics already (was being followed by [facility]) * General Surgery following - had planned debridement but procedure cancelled today (7) Diabetes mellitus with chronic kidney disease: Code(s): E11.22 - Type 2 diabetes mellitus with diabetic chronic kidney disease Status: Chronic
--- NOTE | 2023-08-08 11:28 | PM.PNNEP ---
Progress Note: A&P Assessment and Plan (1) Volume overload: Code(s): E87.70 - Fluid overload, unspecified Status: Chronic Assessment and Plan: paco noted on presentation (but appears a chronic issue) has had several hospitalizations in the last 4 months regarding this issue felt to be secondary to nephrotic range proteinuria/nephrotic syndrome and diastolic heart failure agree with diuresis as tolerated given events overnight, change to IV bumex 2mg bid depending on response, consider adding metolazone as well follow I/Os, daily weights, and clinical exam (2) Stage 3b chronic kidney disease: Code(s): N18.32 - Chronic kidney disease, stage 3b Status: Chronic Assessment and Plan: has fluctuated to extremes over the last few months has been as low as 1.2mg/dl to as high as 3.0mg/dl these fluctuations are related to her issues with volume overload, need for diuretics, suspected renal venous HTN, and recurrent infections/wounds baseline creatinine seems to average out to 1.4 - 1.8mg/dl due to diabetes (with associated complications of retinopathy and neuropathy), hypertension, vascular disease and obesity expect further fluctuations in creatinine with this admission/hospitalization as well (need for aggressive diuresis, infection/bacteremia, wound care...etc) (3) Nephrotic syndrome: Code(s): N04.9 - Nephrotic syndrome with unspecified morphologic changes Status: Chronic Assessment and Plan: noted in the last 4 months: nephrotic range proteinuria (> 11 grams on this admission) significant issues with edema/swelling hypoalbuminemia (serum albumin as low as 1.5mg/dl in the past) presumably secondary to poorly controlled diabetes in association with hypertension complicated by poor nutrition status see #1 (4) CHF (congestive heart failure): Qualifiers: Heart failure chronicity: acute on chronic Heart failure type: unspecified Qualified Code(s): I50.9 - Heart failure, unspecified Code(s): I50.9 - Heart failure, unspecified Status: Chronic Assessment and Plan: diastolic dysfunction noted by Echo continue diuresis as tolerated (5) Hypertension: Code(s): I10 - Essential (primary) hypertension Status: Chronic Assessment and Plan: poor control at baseline noted to be in the 200s systolic on admission would aim to keep in the 140 - 160s to prevent overcontrol and renal hypoperfusion hold GABE-I in the setting of diuresis (but would restart eventually given #3) follow trend of hemodynamics (6) Chronic heel ulcer: Qualifiers: Laterality: right Non-pressure ulcer stage: unspecified non-pressure ulcer stage Qualified Code(s): L97.419 - Non-pressure chronic ulcer of right heel and midfoot with unspecified severity Code(s): L97.409 - Non-pressure chronic ulcer of unspecified heel and midfoot with unspecified severity Status: Chronic Assessment and Plan: has been an issues for the last 2 - 3 months was recommended to have right BKA by Vascular Surgery at [facility] (as well as by other surgeons at another hospital) but she refused this intervention was treated with 6 weeks of IV antibiotics already (was being followed by [facility] Infectious Disease) General Surgery following - had planned debridement but procedure cancelled today (7) Diabetes mellitus with chronic kidney disease: Code(s): E11.22 - Type 2 diabetes mellitus with diabetic chronic kidney disease Status: Chronic Assessment and Plan: noted poor control with associated complications (retinopathy, neuropathy, nephropathy) follow accu-cheks glycemic control as per hospitalists Will continue to follow. Subjective Date/time seen: 08/08/23 11:28 Interval history: Follow-up for chronic kidney disease, volume overload/anasarca, and nephrotic syndrome. Events noted overnight -- worsening shortn
[2023-08-08 11:33] LABS: Glucose Point of Care 121 mg/dl (65-105)
--- NOTE | 2023-08-08 11:39 | PM.IMPN ---
Progress Note: A&P Assessment and Plan (1) CHF (congestive heart failure): Qualifiers: Heart failure chronicity: acute on chronic Heart failure type: unspecified Qualified Code(s): I50.9 - Heart failure, unspecified Code(s): I50.9 - Heart failure, unspecified Status: Chronic (2) Nephrotic range proteinuria: Code(s): R80.9 - Proteinuria, unspecified Status: Acute (3) Diabetic nephropathy with proteinuria: Code(s): E11.21 - Type 2 diabetes mellitus with diabetic nephropathy Status: Chronic (4) Obstructive sleep apnea: Code(s): G47.33 - Obstructive sleep apnea (adult) (pediatric) Status: Acute (5) Acute hypoxic respiratory failure: Code(s): J96.01 - Acute respiratory failure with hypoxia Status: Acute (6) Pleural effusion: Code(s): J90 - Pleural effusion, not elsewhere classified Status: Acute (7) Acute pericardial effusion: Code(s): I30.9 - Acute pericarditis, unspecified Status: Acute (8) Malignant hypertension: Code(s): I10 - Essential (primary) hypertension Status: Acute (9) Chronic heel ulcer: Qualifiers: Laterality: right Non-pressure ulcer stage: unspecified non-pressure ulcer stage Qualified Code(s): L97.419 - Non-pressure chronic ulcer of right heel and midfoot with unspecified severity Code(s): L97.409 - Non-pressure chronic ulcer of unspecified heel and midfoot with unspecified severity Status: Chronic Plan 1. CHF echo shows diastolic dysfunction continue diuresis complicated by nephrotic syndrome 2. Nephrotic syndrome proteinuria with anasarca minimal glucosuria lasix/albumin combination lisinopril 20 mg/day Consult Nephrology 3. DM f/u hba1c 4. CKD 2/3 recommend consulting nephrology and discussing nephrotic syndrome with them. may need renal biopsy 5. Severe body wall edema wound care. ct diuresis 6. EDD CPAP 5. May need bipap instead 7. Anticoagulation coumadin for provoked UE [facility] coumadin start lovenox for dvt prophylaxis (60mg q12 sq) she does have increased risk of dvt with nephrotic syndrome ? need to resume AC, will check UE US 8. R foot wound start ancef after wound culture of R foot wound care consulted gen surg consulted - plan for debridement 9. BL blindness R worse than L unclear cause f/u MR brain without con to r/o tumor Needs an ophthalmology consult as outpaitient has been present for over a year Subjective Date/time seen: 08/08/23 11:39 Interval history: no new issues sob overnight, lasix given, better now procedure cancelled for today Exam Narrative: Const:?? Other: Morbidly o bese, acute on chr onic ill-appearing , debilitated, sit ting up in bed wit h head of bed at 4 0? ? HENMT:?? Other: head is no rmocephalic atraum atic ? Eyes:?? Other: Pupils are equal, slowed twila ction, marked conj unctival erythema of the left eye, i rregular movements of the right eye ? Neck:?? Other: Positive J VD, large neck cir cumference, trache a midline ? Chest:?? Other: Nontender palpation, dried f laking skin from t he breasts bilater ally ? Resp:?? Other: Decreased breath sounds at t he bases, crackles bilaterally ? Cardio:?? Other: Irregular rhythm, regular ra
[2023-08-08 16:37] LABS: Glucose Point of Care 109 mg/dl (65-105)
[2023-08-08 21:07] LABS: Glucose Point of Care 114 mg/dl (65-105)
[2023-08-08] MEDS: hydrALAZINE HCL 20 MG/ML VIAL 10 MG IV PUSH (21:29)
[2023-08-08] MEDS: BUMETANIDE INJ 1 MG/4 ML VIAL IV PUSH (22:58)
[2023-08-09] VITALS (14 sets, daily range): BP systolic 153–175; BP diastolic 82–87; PULSE 82–91; RESP 18–26; TEMP 36.8–36.9; O2SAT 90–97
[2023-08-09] MEDS: LOPERAMIDE HCL 2 MG CAPSULE PO ×2 (04:38→21:50)
[2023-08-09 07:25] LABS: Basophils Percent Auto 0.4 % (0.2-1.2); Eosinophils Absolute Auto 0.1 K/mm3 (0-0.3); Eosinophils Percent Auto 0.7 % (0-4.4); Hematocrit 28.7 % (37.0-47.0); Hemoglobin 8.8 g/dL (12.0-15.0); Immature Granulocyte Absolute 0.07 K/mm3 (0.00-0.031); Immature Granulocyte Percent A 0.6 % (0-0.5); Lymphocytes Absolute Auto 0.66 K/mm3 (0.9-3.2); Lymphocytes Percent Auto 5.9 % (18.3-44.2); Mean Corpuscular HGB Conc 30.7 g/dl (32-36); Mean Corpuscular Hemoglobin 29.5 pg (26-34); Mean Corpuscular Volume 96.3 fl (80-100); Mean Platelet Volume 10.4 fl (7.4-10.4); Monocytes Absolute Auto 0.8 K/mm3 (0.1-0.6); Monocytes Percent Auto 7.1 % (2.6-8.5); Neutrophils Absolute Auto 9.6 K/mm3 (1.3-6.7); Neutrophils Percent Auto 85.3 % (45.5-73.1); Platelet Count Result 286 k/mm3 (150-375); Red Blood Count 2.98 M/mm3 (4.2-5.4); Red Cell Distribution Width 15.8 % (11.5-14.5); White Blood Count 11.2 K/mm3 (4.5-10.0)
[2023-08-09 07:34] LABS: INR 1.7; Prothrombin Time 21.2 Seconds (11.1-14.7)
[2023-08-09 07:42] LABS: Glucose Point of Care 134 mg/dl (65-105)
[2023-08-09 07:43] LABS: Alanine Aminotransferase 9 U/L (6-35); Albumin Level 3.1 g/dL (3.5-5.1); Alkaline Phosphatase 79 U/L (38-126); Anion Gap 7 mmol/L (8-16); Aspartate Amino Transferase 19 U/L (14-36); Blood Urea Nitrogen 21 mg/dL (7-17); Calcium 8.2 mg/dL (8.4-10.2); Carbon Dioxide 26 mmol/L (22-30); Chloride 108 mmol/L (98-107); Estimated CRCL calculation 54 ml/min; Estimated Glomerular Filt Rate 34; Glucose 121 mg/dL (65-110); Potassium 3.9 mmol/L (3.4-5.0); Sodium 141 mmol/L (137-145)
[2023-08-09] MEDS: ASCORBIC ACID 500 MG TABLET PO ×2 (08:43→17:07)
[2023-08-09] MEDS: POTASSIUM CHLORIDE 20 MEQ ER TABLET PO (08:44)
[2023-08-09] MEDS: FERROUS SULFATE 325 MG TABLET DR BY MOUTH (08:44)
[2023-08-09] MEDS: MULTIVITAMINS THERAPEUTIC TAB (*BKC) 1 TABLET PO (08:44)
[2023-08-09] MEDS: carvediloL 12.5 MG TABLET PO (08:45)
[2023-08-09] MEDS: CEFEPIME 2 GM/NS 50 ML 2 GM/50 ML BAG IVPB ×2 (08:46→21:44)
[2023-08-09] MEDS: COLLAGENASE OINT 30 GM TUBE 1 APPLIC TOPICAL (08:46)
[2023-08-09] MEDS: EUCERIN CREAM 120 GM JAR 1 APPLIC TOPICAL (08:46)
[2023-08-09] MEDS: ALBUMIN HUMAN 25% 25 GM/100 ML 100 ML IVPB ×2 (09:44→17:07)
[2023-08-09] MEDS: metOLazone 5 MG TABLET PO (11:25)
[2023-08-09] MEDS: BUMETANIDE INJ 1 MG/4 ML VIAL 2 MG IV PUSH ×2 (11:25→18:46)
[2023-08-09 11:36] LABS: Glucose Point of Care 129 mg/dl (65-105)
--- NOTE | 2023-08-09 12:15 | PM.IMPN ---
Progress Note: A&P Assessment and Plan (1) CHF (congestive heart failure): Qualifiers: Heart failure chronicity: acute on chronic Heart failure type: unspecified Qualified Code(s): I50.9 - Heart failure, unspecified Code(s): I50.9 - Heart failure, unspecified Status: Chronic (2) Nephrotic range proteinuria: Code(s): R80.9 - Proteinuria, unspecified Status: Acute (3) Diabetic nephropathy with proteinuria: Code(s): E11.21 - Type 2 diabetes mellitus with diabetic nephropathy Status: Chronic (4) Obstructive sleep apnea: Code(s): G47.33 - Obstructive sleep apnea (adult) (pediatric) Status: Acute (5) Acute hypoxic respiratory failure: Code(s): J96.01 - Acute respiratory failure with hypoxia Status: Acute (6) Pleural effusion: Code(s): J90 - Pleural effusion, not elsewhere classified Status: Acute (7) Acute pericardial effusion: Code(s): I30.9 - Acute pericarditis, unspecified Status: Acute (8) Malignant hypertension: Code(s): I10 - Essential (primary) hypertension Status: Acute (9) Chronic heel ulcer: Qualifiers: Laterality: right Non-pressure ulcer stage: unspecified non-pressure ulcer stage Qualified Code(s): L97.419 - Non-pressure chronic ulcer of right heel and midfoot with unspecified severity Code(s): L97.409 - Non-pressure chronic ulcer of unspecified heel and midfoot with unspecified severity Status: Chronic Plan 1. CHF echo shows diastolic dysfunction continue diuresis complicated by nephrotic syndrome 2. Nephrotic syndrome Per nephrology 3. DM f/u hba1c 4. CKD 2/3 recommend consulting nephrology and discussing nephrotic syndrome 5. Severe body wall edema Monitor 6. EDD CPAP 5. May need bipap instead 7. Anticoagulation coumadin for provoked UE [facility] stop coumadin start lovenox for dvt prophylaxis (60mg q12 sq) she does have increased risk of dvt with nephrotic syndrome ? need to resume AC, repeat ultrasounds of the upper extremities negative. 8. R foot wound start ancef after wound culture of R foot wound care consulted gen surg consulted - plan for debridement at some point. Continue antibiotics. Cultures no 9. 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 Other: Morbidly o bese, acute on chr onic ill-appearing , debilitated, sit ting up in bed wit h head of bed at 4 0? ? HENMT:?? Other: head is no rmocephalic atraum atic ? Eyes:?? Other: Pupils are equal, slowed twila ction, marked conj unctival erythema of the left eye, i rregular movements of the right eye ? Neck:?? Other: Positive J VD, large neck cir cumference, trache a midline ? Chest:?? Other: Nontender palpation, dried f laking skin from t he breasts bilater ally ? Resp:?? Other: Decreased breath sounds at t he bases, crackles bilaterally ? Cardio:?? Other: Irregular rhythm, regular ra te, 2+ bilateral r adial pulses, weak ly palpable right
--- NOTE | 2023-08-09 15:12 | P.PNNP_ITS ---
Progress Note: A&P Assessment and Plan (1) Volume overload: Code(s): E87.70 - Fluid overload, unspecified Status: Chronic Assessment and Plan: * anasarca noted on presentation (but appears a chronic issue) * has had several hospitalizations in the last 4 months regarding this issue * felt to be secondary to nephrotic range proteinuria/nephrotic syndrome and diastolic heart failure * Amlodipine was discontinued * agree with diuresis as tolerated * she is on albumin, Bumex, and metolazone. * Urine output is still not very good. * follow I/Os, daily weights, and clinical exam (2) Stage 3b chronic kidney disease: Code(s): N18.32 - Chronic kidney disease, stage 3b Status: Chronic Assessment and Plan: * has fluctuated to extremes over the last few months * has been as low as 1.2mg/dl to as high as 3.0mg/dl * these fluctuations are related to her issues with volume overload, need for diuretics, suspected renal venous HTN, and recurrent infections/wounds * baseline creatinine seems to average out to 1.4 - 1.8mg/dl * due to diabetes (with associated complications of retinopathy and neuropathy), hypertension, vascular disease and obesity * expect further fluctuations in creatinine with this admission/hospitalization as well (need for aggressive diuresis, infection/bacteremia, wound care...etc) * will continue diuretics (3) Nephrotic syndrome: Code(s): N04.9 - Nephrotic syndrome with unspecified morphologic changes Status: Chronic Assessment and Plan: * noted in the last 4 months: * nephrotic range proteinuria (> 11 grams on this admission) * significant issues with edema/swelling * hypoalbuminemia (serum albumin as low as 1.5mg/dl in the past) * presumably secondary to poorly controlled diabetes in association with hypertension complicated by poor nutrition status * Adama inhibitors on hold. She will eventually need these. * see #1 (4) CHF (congestive heart failure): Qualifiers: Heart failure chronicity: acute on chronic Heart failure type: unspecified Qualified Code(s): I50.9 - Heart failure, unspecified Code(s): I50.9 - Heart failure, unspecified Status: Chronic Assessment and Plan: * diastolic dysfunction noted by Echo * continue diuresis as tolerated (5) Hypertension: Code(s): I10 - Essential (primary) hypertension Status: Chronic Assessment and Plan: * poor control at baseline * noted to be in the 200s systolic on admission * would aim to keep in the 140 - 160s to prevent overcontrol and renal hypoperfusion * hold ADAMA-I in the setting of diuresis (but would restart eventually given #3) * Blood pressure still in the 170s * she is currently on carvedilol and metolazone. Will increase carvedilol to 25 (6) Chronic heel ulcer: Qualifiers: Laterality: right Non-pressure ulcer stage: unspecified non-pressure ulcer stage Qualified Code(s): L97.419 - Non-pressure chronic ulcer of right heel and midfoot with unspecified severity Code(s): L97.409 - Non-pressure chronic ulcer of unspecified heel and midfoot with unspecified severity Status: Chronic Assessment and Plan: * has been an issues for the last 2 - 3 months * was recommended to have right BKA by Vascular Surgery at [facility] (as well as by other surgeons at another hospital) but she refused this intervention * was treated with 6 weeks of IV antibiotics already (was being followed by [facility] Infectious Disease) * General Surgery following - had planned debridement but procedure cancelled
--- NOTE | 2023-08-09 15:12 | PM.PNNEP ---
Progress Note: A&P Assessment and Plan (1) Volume overload: Code(s): E87.70 - Fluid overload, unspecified Status: Chronic Assessment and Plan: paco noted on presentation (but appears a chronic issue) has had several hospitalizations in the last 4 months regarding this issue felt to be secondary to nephrotic range proteinuria/nephrotic syndrome and diastolic heart failure Amlodipine was discontinued agree with diuresis as tolerated she is on albumin, Bumex, and metolazone. Urine output is still not very good. follow I/Os, daily weights, and clinical exam (2) Stage 3b chronic kidney disease: Code(s): N18.32 - Chronic kidney disease, stage 3b Status: Chronic Assessment and Plan: has fluctuated to extremes over the last few months has been as low as 1.2mg/dl to as high as 3.0mg/dl these fluctuations are related to her issues with volume overload, need for diuretics, suspected renal venous HTN, and recurrent infections/wounds baseline creatinine seems to average out to 1.4 - 1.8mg/dl due to diabetes (with associated complications of retinopathy and neuropathy), hypertension, vascular disease and obesity expect further fluctuations in creatinine with this admission/hospitalization as well (need for aggressive diuresis, infection/bacteremia, wound care...etc) will continue diuretics (3) Nephrotic syndrome: Code(s): N04.9 - Nephrotic syndrome with unspecified morphologic changes Status: Chronic Assessment and Plan: noted in the last 4 months: nephrotic range proteinuria (> 11 grams on this admission) significant issues with edema/swelling hypoalbuminemia (serum albumin as low as 1.5mg/dl in the past) presumably secondary to poorly controlled diabetes in association with hypertension complicated by poor nutrition status Adama inhibitors on hold. She will eventually need these. see #1 (4) CHF (congestive heart failure): Qualifiers: Heart failure chronicity: acute on chronic Heart failure type: unspecified Qualified Code(s): I50.9 - Heart failure, unspecified Code(s): I50.9 - Heart failure, unspecified Status: Chronic Assessment and Plan: diastolic dysfunction noted by Echo continue diuresis as tolerated (5) Hypertension: Code(s): I10 - Essential (primary) hypertension Status: Chronic Assessment and Plan: poor control at baseline noted to be in the 200s systolic on admission would aim to keep in the 140 - 160s to prevent overcontrol and renal hypoperfusion hold ADAMA-I in the setting of diuresis (but would restart eventually given #3) Blood pressure still in the 170s she is currently on carvedilol and metolazone. Will increase carvedilol to 25 (6) Chronic heel ulcer: Qualifiers: Laterality: right Non-pressure ulcer stage: unspecified non-pressure ulcer stage Qualified Code(s): L97.419 - Non-pressure chronic ulcer of right heel and midfoot with unspecified severity Code(s): L97.409 - Non-pressure chronic ulcer of unspecified heel and midfoot with unspecified severity Status: Chronic Assessment and Plan: has been an issues for the last 2 - 3 months was recommended to have right BKA by Vascular Surgery at [facility] (as well as by other surgeons at another hospital) but she refused this intervention was treated with 6 weeks of IV antibiotics already (was being followed by [facility] Infectious Disease) General Surgery following - had planned debridement but procedure cancelled today (7) Diabetes mellitus with chronic kidney disease: Code(s): E11.22 - Type 2 diabetes mellitus with diabetic chronic kidney disease Status: Chronic Assessment and Plan: noted poor control with associated complications (retinopathy, neuropathy, nephropathy) follow accu-cheks glycemic control as per hospitalists Subjective Date/time seen: 08/09/23 15:12
[2023-08-09 16:45] LABS: Glucose Point of Care 176 mg/dl (65-105)
[2023-08-09 20:56] LABS: Glucose Point of Care 133 mg/dl (65-105)
[2023-08-09] MEDS: carvediloL 12.5 MG TABLET 25 MG PO (21:44)
[2023-08-09 22:21] LABS: Vancomycin Trough 28.8 ug/mL (10.0-20.0)
[2023-08-10] VITALS (12 sets, daily range): BP systolic 137–154; BP diastolic 78–80; PULSE 64–84; RESP 18–20; TEMP 36.2–36.9; O2SAT 91–96
[2023-08-10 07:05] LABS: Basophils Percent Auto 0.2 % (0.2-1.2); Eosinophils Absolute Auto 0.5 K/mm3 (0-0.3); Eosinophils Percent Auto 5.2 % (0-4.4); Hematocrit 26.1 % (37.0-47.0); Hemoglobin 7.8 g/dL (12.0-15.0); Immature Granulocyte Absolute 0.05 K/mm3 (0.00-0.031); Immature Granulocyte Percent A 0.5 % (0-0.5); Lymphocytes Absolute Auto 1.04 K/mm3 (0.9-3.2); Lymphocytes Percent Auto 10.7 % (18.3-44.2); Mean Corpuscular HGB Conc 29.9 g/dl (32-36); Mean Corpuscular Hemoglobin 28.6 pg (26-34); Mean Corpuscular Volume 95.6 fl (80-100); Mean Platelet Volume 10.3 fl (7.4-10.4); Monocytes Percent Auto 9.9 % (2.6-8.5); Neutrophils Absolute Auto 7.2 K/mm3 (1.3-6.7); Neutrophils Percent Auto 73.5 % (45.5-73.1); Platelet Count Result 245 k/mm3 (150-375); Red Blood Count 2.73 M/mm3 (4.2-5.4); Red Cell Distribution Width 15.8 % (11.5-14.5); White Blood Count 9.8 K/mm3 (4.5-10.0)
[2023-08-10 07:08] LABS: Alanine Aminotransferase 10 U/L (6-35); Albumin Level 2.7 g/dL (3.5-5.1); Alkaline Phosphatase 76 U/L (38-126); Anion Gap 6 mmol/L (8-16); Aspartate Amino Transferase 16 U/L (14-36); Bilirubin,Total 1.1 mg/dL (0.2-1.3); Blood Urea Nitrogen 21 mg/dL (7-17); Calcium 8.2 mg/dL (8.4-10.2); Carbon Dioxide 29 mmol/L (22-30); Chloride 108 mmol/L (98-107); Estimated CRCL calculation 45 ml/min; Estimated Glomerular Filt Rate 27; Glucose 124 mg/dL (65-110); Phosphorus 4.5 mg/dL (2.5-4.5); Potassium 3.4 mmol/L (3.4-5.0); Sodium 143 mmol/L (137-145)
[2023-08-10 07:28] LABS: Glucose Point of Care 113 mg/dl (65-105)
[2023-08-10 07:33] LABS: INR 2.1; Prothrombin Time 24.8 Seconds (11.1-14.7)
[2023-08-10 07:41] LABS: Hypochromasia 2+ (NORMAL); Platelet Estimate Adequate (Adequate)
[2023-08-10 07:42] LABS: Schistocytes Rare (NORMAL)
[2023-08-10] MEDS: carvediloL 12.5 MG TABLET 25 MG PO ×2 (08:53→20:43)
[2023-08-10] MEDS: ASCORBIC ACID 500 MG TABLET PO ×2 (09:01→16:50)
[2023-08-10] MEDS: FERROUS SULFATE 325 MG TABLET DR BY MOUTH (09:01)
[2023-08-10] MEDS: MULTIVITAMINS THERAPEUTIC TAB (*BKC) 1 TABLET PO (09:01)
[2023-08-10] MEDS: POTASSIUM CHLORIDE 20 MEQ ER TABLET PO (09:01)
[2023-08-10] MEDS: ALBUMIN HUMAN 25% 25 GM/100 ML 100 ML IVPB ×2 (09:42→16:50)
[2023-08-10] MEDS: CEFEPIME 2 GM/NS 50 ML 2 GM/50 ML BAG IVPB ×2 (09:43→20:43)
--- NOTE | 2023-08-10 10:33 | P.PNNP_ITS ---
Progress Note: A&P Assessment and Plan (1) Volume overload: Code(s): E87.70 - Fluid overload, unspecified Status: Chronic Assessment and Plan: * anasarca noted on presentation (but appears a chronic issue) * has had several hospitalizations in the last 4 months regarding this issue * felt to be secondary to nephrotic range proteinuria/nephrotic syndrome and diastolic heart failure * Amlodipine was discontinued * agree with diuresis as tolerated * she is on albumin, Bumex, and metolazone. * serum albumin level is up to 2.7 * Urine output is still not very good. * creatinine is up to 2.5. * Will check a 24hour urine creatinine to see if her GFR is actually worse than predicted by the estimate from the blood work. * the etiology of the poor response to diuretics is unclear. * She did have infection before but repeat cultures are negative. Her white cell count is okay and she is afebrile. Repeat echo seems to be okay. She has a catheter in her bladder. Will see what the 24hour urine shows . She could have elevated renal venous blood pressures and so she might need ultrafiltration to get some of this fluid off to improve kidney function.. (2) Stage 3b chronic kidney disease: Code(s): N18.32 - Chronic kidney disease, stage 3b Status: Chronic Assessment and Plan: * has fluctuated to extremes over the last few months * has been as low as 1.2mg/dl to as high as 3.0mg/dl * these fluctuations are related to her issues with volume overload, need for diuretics, suspected renal venous HTN, and recurrent infections/wounds * baseline creatinine seems to average out to 1.4 - 1.8mg/dl * due to diabetes (with associated complications of retinopathy and neuropathy), hypertension, vascular disease and obesity * expect further fluctuations in creatinine with this admission/hospitalization as well (need for aggressive diuresis, infection/bacteremia, wound care...etc) * will continue diuretics (3) Nephrotic syndrome: Code(s): N04.9 - Nephrotic syndrome with unspecified morphologic changes Status: Chronic Assessment and Plan: * noted in the last 4 months: * nephrotic range proteinuria (> 11 grams on this admission) * significant issues with edema/swelling * hypoalbuminemia (serum albumin as low as 1.5mg/dl in the past) * presumably secondary to poorly controlled diabetes in association with hypertension complicated by poor nutrition status * Adama inhibitors on hold. She will eventually need these. * see #1 (4) CHF (congestive heart failure): Qualifiers: Heart failure chronicity: acute on chronic Heart failure type: unspecified Qualified Code(s): I50.9 - Heart failure, unspecified Code(s): I50.9 - Heart failure, unspecified Status: Chronic Assessment and Plan: * diastolic dysfunction noted by Echo * continue diuresis as tolerated (5) Hypertension: Code(s): I10 - Essential (primary) hypertension Status: Chronic Assessment and Plan: * poor control at baseline * noted to be in the 200s systolic on admission * would aim to keep in the 140 - 160s to prevent overcontrol and renal hypoperfusion * hold ADAMA-I in the setting of diuresis (but would restart eventually given #3) * Blood pressure is improved * she is currently on carvedilol and metolazone. Will increase carvedilol to 25 (6) Chronic heel ulcer: Qualifiers: Laterality: right Non-pressure ulcer stage: unspecified non-pressure ulcer stage Qualified Code(s): L97.419 - Non-pressure chronic ulcer of
--- NOTE | 2023-08-10 10:33 | PM.PNNEP ---
Progress Note: A&P Assessment and Plan (1) Volume overload: Code(s): E87.70 - Fluid overload, unspecified Status: Chronic Assessment and Plan: paco noted on presentation (but appears a chronic issue) has had several hospitalizations in the last 4 months regarding this issue felt to be secondary to nephrotic range proteinuria/nephrotic syndrome and diastolic heart failure Amlodipine was discontinued agree with diuresis as tolerated she is on albumin, Bumex, and metolazone. serum albumin level is up to 2.7 Urine output is still not very good. creatinine is up to 2.5. Will check a 24hour urine creatinine to see if her GFR is actually worse than predicted by the estimate from the blood work. the etiology of the poor response to diuretics is unclear. She did have infection before but repeat cultures are negative. Her white cell count is okay and she is afebrile. Repeat echo seems to be okay. She has a catheter in her bladder. Will see what the 24hour urine shows . She could have elevated renal venous blood pressures and so she might need ultrafiltration to get some of this fluid off to improve kidney function.. (2) Stage 3b chronic kidney disease: Code(s): N18.32 - Chronic kidney disease, stage 3b Status: Chronic Assessment and Plan: has fluctuated to extremes over the last few months has been as low as 1.2mg/dl to as high as 3.0mg/dl these fluctuations are related to her issues with volume overload, need for diuretics, suspected renal venous HTN, and recurrent infections/wounds baseline creatinine seems to average out to 1.4 - 1.8mg/dl due to diabetes (with associated complications of retinopathy and neuropathy), hypertension, vascular disease and obesity expect further fluctuations in creatinine with this admission/hospitalization as well (need for aggressive diuresis, infection/bacteremia, wound care...etc) will continue diuretics (3) Nephrotic syndrome: Code(s): N04.9 - Nephrotic syndrome with unspecified morphologic changes Status: Chronic Assessment and Plan: noted in the last 4 months: nephrotic range proteinuria (> 11 grams on this admission) significant issues with edema/swelling hypoalbuminemia (serum albumin as low as 1.5mg/dl in the past) presumably secondary to poorly controlled diabetes in association with hypertension complicated by poor nutrition status Adama inhibitors on hold. She will eventually need these. see #1 (4) CHF (congestive heart failure): Qualifiers: Heart failure chronicity: acute on chronic Heart failure type: unspecified Qualified Code(s): I50.9 - Heart failure, unspecified Code(s): I50.9 - Heart failure, unspecified Status: Chronic Assessment and Plan: diastolic dysfunction noted by Echo continue diuresis as tolerated (5) Hypertension: Code(s): I10 - Essential (primary) hypertension Status: Chronic Assessment and Plan: poor control at baseline noted to be in the 200s systolic on admission would aim to keep in the 140 - 160s to prevent overcontrol and renal hypoperfusion hold ADAMA-I in the setting of diuresis (but would restart eventually given #3) Blood pressure is improved she is currently on carvedilol and metolazone. Will increase carvedilol to 25 (6) Chronic heel ulcer: Qualifiers: Laterality: right Non-pressure ulcer stage: unspecified non-pressure ulcer stage Qualified Code(s): L97.419 - Non-pressure chronic ulcer of right heel and midfoot with unspecified severity Code(s): L97.409 - Non-pressure chronic ulcer of unspecified heel and midfoot with unspecified severity Status: Chronic Assessment and Plan: has been an issues for the last 2 - 3 months was recommended to have right BKA by Vascular Surgery at [facility] (as well as by other surgeons at another hospital) but she refused this interventi
--- NOTE | 2023-08-10 11:03 | PM.IMPN ---
Progress Note: A&P Assessment and Plan (1) CHF (congestive heart failure): Qualifiers: Heart failure chronicity: acute on chronic Heart failure type: unspecified Qualified Code(s): I50.9 - Heart failure, unspecified Code(s): I50.9 - Heart failure, unspecified Status: Chronic (2) Nephrotic range proteinuria: Code(s): R80.9 - Proteinuria, unspecified Status: Acute (3) Diabetic nephropathy with proteinuria: Code(s): E11.21 - Type 2 diabetes mellitus with diabetic nephropathy Status: Chronic (4) Obstructive sleep apnea: Code(s): G47.33 - Obstructive sleep apnea (adult) (pediatric) Status: Acute (5) Acute hypoxic respiratory failure: Code(s): J96.01 - Acute respiratory failure with hypoxia Status: Acute (6) Pleural effusion: Code(s): J90 - Pleural effusion, not elsewhere classified Status: Acute (7) Acute pericardial effusion: Code(s): I30.9 - Acute pericarditis, unspecified Status: Acute (8) Malignant hypertension: Code(s): I10 - Essential (primary) hypertension Status: Acute (9) Chronic heel ulcer: Qualifiers: Laterality: right Non-pressure ulcer stage: unspecified non-pressure ulcer stage Qualified Code(s): L97.419 - Non-pressure chronic ulcer of right heel and midfoot with unspecified severity Code(s): L97.409 - Non-pressure chronic ulcer of unspecified heel and midfoot with unspecified severity Status: Chronic Plan 1. CHF echo shows diastolic dysfunction continue diuresis complicated by nephrotic syndrome 2. Nephrotic syndrome Per nephrology 3. DM f/u hba1c 4. CKD 2/3 recommend consulting nephrology and discussing nephrotic syndrome 5. Severe body wall edema Monitor 6. EDD CPAP 5. May need bipap instead 7. Anticoagulation coumadin for provoked UE with picc line [facility] at [facility] stop coumadin start lovenox for dvt prophylaxis (60mg q12 sq) she does have increased risk of dvt with nephrotic syndrome ? need to resume AC, repeat ultrasounds of the upper extremities negative. 8. R foot wound start ancef after wound culture of R foot wound care consulted gen surg consulted - plan for debridement at some point. Continue antibiotics. Cultures no 9. 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 Other: Morbidly o bese, acute on chr onic ill-appearing , debilitated, sit ting up in bed wit h head of bed at 4 0? ? HENMT:?? Other: head is no rmocephalic atraum atic ? Eyes:?? Other: Pupils are equal, slowed twila ction, marked conj unctival erythema of the left eye, i rregular movements of the right eye ? Neck:?? Other: Positive J VD, large neck cir cumference, trache a midline ? Chest:?? Other: Nontender palpation, dried f laking skin from t he breasts bilater ally ? Resp:?? Other: Decreased breath sounds at t he bases, crackles bilaterally ? Cardio:?? Other: Irregular rhythm, regular ra te, 2+ bilateral r adial pulses, weak ly palpable right
[2023-08-10] MEDS: metOLazone 5 MG TABLET PO (11:22)
[2023-08-10] MEDS: BUMETANIDE INJ 1 MG/4 ML VIAL 2 MG IV PUSH ×2 (11:23→19:53)
[2023-08-10 11:29] LABS: Glucose Point of Care 122 mg/dl (65-105)
[2023-08-10] MEDS: COLLAGENASE OINT 30 GM TUBE 1 APPLIC TOPICAL (13:50)
[2023-08-10] MEDS: EUCERIN CREAM 120 GM JAR 1 APPLIC TOPICAL (13:50)
[2023-08-10 14:32] LABS: Albumin 2.3 g/dL (3.8-4.8); Alpha 1 Globulin 0.3 g/dL (0.2-0.3); Alpha 2 Globulin 0.8 g/dL (0.5-0.9); Beta 1 Globulin 0.3 g/dL (0.4-0.6); Gamma Globulin 1.4 g/dL (0.8-1.7); Protein, Total 5.6 g/dL (6.1-8.1)
[2023-08-10 15:04] LABS: Lambda Light Chain 186.7 mg/L (5.7-26.3)
[2023-08-10 16:34] LABS: Glucose Point of Care 117 mg/dl (65-105)
[2023-08-10 20:31] LABS: Glucose Point of Care 151 mg/dl (65-105)
[2023-08-11] VITALS (14 sets, daily range): BP systolic 139–165; BP diastolic 71–81; PULSE 75–84; RESP 16–20; TEMP 36.9–37.5; O2SAT 86–96
[2023-08-11 07:17] LABS: Basophils Percent Auto 0.3 % (0.2-1.2); Eosinophils Absolute Auto 0.9 K/mm3 (0-0.3); Eosinophils Percent Auto 9.2 % (0-4.4); Hematocrit 24.6 % (37.0-47.0); Hemoglobin 7.7 g/dL (12.0-15.0); Immature Granulocyte Absolute 0.04 K/mm3 (0.00-0.031); Immature Granulocyte Percent A 0.4 % (0-0.5); Lymphocytes Absolute Auto 0.97 K/mm3 (0.9-3.2); Lymphocytes Percent Auto 9.6 % (18.3-44.2); Mean Corpuscular HGB Conc 31.3 g/dl (32-36); Mean Corpuscular Hemoglobin 29.3 pg (26-34); Mean Corpuscular Volume 93.5 fl (80-100); Mean Platelet Volume 10.7 fl (7.4-10.4); Monocytes Absolute Auto 0.7 K/mm3 (0.1-0.6); Monocytes Percent Auto 6.7 % (2.6-8.5); Neutrophils Absolute Auto 7.4 K/mm3 (1.3-6.7); Neutrophils Percent Auto 73.8 % (45.5-73.1); Platelet Count Result 270 k/mm3 (150-375); Red Blood Count 2.63 M/mm3 (4.2-5.4); Red Cell Distribution Width 15.4 % (11.5-14.5); White Blood Count 10.1 K/mm3 (4.5-10.0)
[2023-08-11 07:21] LABS: INR 1.6; Prothrombin Time 20.2 Seconds (11.1-14.7)
[2023-08-11 07:23] LABS: Alanine Aminotransferase 10 U/L (6-35); Albumin Level 2.9 g/dL (3.5-5.1); Alkaline Phosphatase 78 U/L (38-126); Anion Gap 6 mmol/L (8-16); Aspartate Amino Transferase 16 U/L (14-36); Blood Urea Nitrogen 22 mg/dL (7-17); Calcium 8.5 mg/dL (8.4-10.2); Carbon Dioxide 29 mmol/L (22-30); Chloride 108 mmol/L (98-107); Estimated CRCL calculation 43 ml/min; Estimated Glomerular Filt Rate 26; Glucose 121 mg/dL (65-110); Phosphorus 4.2 mg/dL (2.5-4.5); Potassium 3.5 mmol/L (3.4-5.0); Sodium 143 mmol/L (137-145)
[2023-08-11 07:30] LABS: Glucose Point of Care 121 mg/dl (65-105)
[2023-08-11] MEDS: ALBUMIN HUMAN 25% 25 GM/100 ML 100 ML IVPB ×2 (10:35→17:15)
[2023-08-11] MEDS: POTASSIUM CHLORIDE 20 MEQ ER TABLET PO (10:35)
[2023-08-11] MEDS: FERROUS SULFATE 325 MG TABLET DR BY MOUTH (10:35)
[2023-08-11] MEDS: ASCORBIC ACID 500 MG TABLET PO ×2 (10:35→17:14)
[2023-08-11] MEDS: carvediloL 12.5 MG TABLET 25 MG PO ×2 (10:35→20:44)
[2023-08-11] MEDS: MULTIVITAMINS THERAPEUTIC TAB (*BKC) 1 TABLET PO (10:35)
[2023-08-11] MEDS: COLLAGENASE OINT 30 GM TUBE 1 APPLIC TOPICAL (10:36)
[2023-08-11] MEDS: CEFEPIME 2 GM/NS 50 ML 2 GM/50 ML BAG IVPB ×2 (10:36→20:44)
[2023-08-11] MEDS: EUCERIN CREAM 120 GM JAR 1 APPLIC TOPICAL (10:36)
[2023-08-11] MEDS: BUMETANIDE INJ 1 MG/4 ML VIAL 2 MG IV PUSH ×2 (10:39→17:15)
[2023-08-11] MEDS: metOLazone 5 MG TABLET PO (10:41)
--- NOTE | 2023-08-11 10:55 | PM.IMPN ---
Progress Note: A&P Assessment and Plan (1) CHF (congestive heart failure): Qualifiers: Heart failure chronicity: acute on chronic Heart failure type: unspecified Qualified Code(s): I50.9 - Heart failure, unspecified Code(s): I50.9 - Heart failure, unspecified Status: Chronic (2) Nephrotic range proteinuria: Code(s): R80.9 - Proteinuria, unspecified Status: Acute (3) Diabetic nephropathy with proteinuria: Code(s): E11.21 - Type 2 diabetes mellitus with diabetic nephropathy Status: Chronic (4) Obstructive sleep apnea: Code(s): G47.33 - Obstructive sleep apnea (adult) (pediatric) Status: Acute (5) Acute hypoxic respiratory failure: Code(s): J96.01 - Acute respiratory failure with hypoxia Status: Acute (6) Pleural effusion: Code(s): J90 - Pleural effusion, not elsewhere classified Status: Acute (7) Acute pericardial effusion: Code(s): I30.9 - Acute pericarditis, unspecified Status: Acute (8) Malignant hypertension: Code(s): I10 - Essential (primary) hypertension Status: Acute (9) Chronic heel ulcer: Qualifiers: Laterality: right Non-pressure ulcer stage: unspecified non-pressure ulcer stage Qualified Code(s): L97.419 - Non-pressure chronic ulcer of right heel and midfoot with unspecified severity Code(s): L97.409 - Non-pressure chronic ulcer of unspecified heel and midfoot with unspecified severity Status: Chronic Plan 1. CHF echo shows diastolic dysfunction continue diuresis complicated by nephrotic syndrome Currently on 5L. Will check chest x-ray. 2. Nephrotic syndrome Per nephrology 3. DM f/u hba1c 4. CKD 2/3 recommend consulting nephrology and discussing nephrotic syndrome 5. Severe body wall edema Monitor 6. EDD CPAP 5. May need bipap instead 7. Anticoagulation coumadin for provoked UE with picc line per pt at residential stop coumadin start lovenox for dvt prophylaxis (60mg q12 sq) she does have increased risk of dvt with nephrotic syndrome ? need to resume AC, repeat ultrasounds of the upper extremities negative. 8. R foot wound start ancef after wound culture of R foot wound care consulted gen surg consulted - plan for debridement at some point. Continue antibiotics. Cultures no 9. 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 Reports that she is breathing better. Exam Narrative: Const:?? Other: Morbidly o bese, acute on chr onic ill-appearing , debilitated, sit ting up in bed wit h head of bed at 4 0? ? HENMT:?? Other: head is no rmocephalic atraum atic ? Eyes:?? Other: Pupils are equal, slowed twila ction, marked conj unctival erythema of the left eye, i rregular movements of the right eye ? Neck:?? Other: Positive J VD, large neck cir cumference, trache a midline ? Chest:?? Other: Nontender palpation, dried f laking skin from t he breasts bilater ally ? Resp:?? Other: Decreased breath sounds at t he bases, crackles bilaterally ? Cardio:?? Other: Irregular rhythm, regular ra te, 2+ bilateral r
--- NOTE | 2023-08-11 11:05 | PM.PNNEP ---
Progress Note: A&P Assessment and Plan (1) Volume overload: Code(s): E87.70 - Fluid overload, unspecified Status: Chronic Assessment and Plan: paco noted on presentation (but appears a chronic issue) has had several hospitalizations in the last 4 months regarding this issue felt to be secondary to nephrotic range proteinuria/nephrotic syndrome and diastolic heart failure off amlodipine agree with diuresis as tolerated on albumin, Bumex, and metolazone. serum albumin better urine output better (but would expected more of a response with current therapy) unfortunately, creatinine rising.... checking 24hour urine creatinine to see if her GFR is actually worse than predicted by the estimate from the blood work I am worried she may need more invasive measures (i.e. dialysis/ultrafiltration) to optimize her volume status.... (2) Stage 3b chronic kidney disease: Code(s): N18.32 - Chronic kidney disease, stage 3b Status: Chronic Assessment and Plan: has fluctuated to extremes over the last few months has been as low as 1.2mg/dl to as high as 3.0mg/dl these fluctuations are related to her issues with volume overload, need for diuretics, suspected renal venous HTN, and recurrent infections/wounds baseline creatinine seems to average out to 1.4 - 1.8mg/dl due to diabetes (with associated complications of retinopathy and neuropathy), hypertension, vascular disease and obesity expect further fluctuations in creatinine with this admission/hospitalization as well (need for aggressive diuresis, infection/bacteremia, wound care...etc) continue diuretics (3) Nephrotic syndrome: Code(s): N04.9 - Nephrotic syndrome with unspecified morphologic changes Status: Chronic Assessment and Plan: noted in the last 4 months: nephrotic range proteinuria (> 11 grams on this admission) significant issues with edema/swelling hypoalbuminemia (serum albumin as low as 1.5mg/dl in the past) presumably secondary to poorly controlled diabetes in association with hypertension complicated by poor nutrition status Adama-I on hold but she will eventually need this restarted see #1 (4) CHF (congestive heart failure): Qualifiers: Heart failure chronicity: acute on chronic Heart failure type: unspecified Qualified Code(s): I50.9 - Heart failure, unspecified Code(s): I50.9 - Heart failure, unspecified Status: Chronic Assessment and Plan: diastolic dysfunction noted by Echo continue diuresis as tolerated (5) Hypertension: Code(s): I10 - Essential (primary) hypertension Status: Chronic Assessment and Plan: poor control at baseline noted to be in the 200s systolic on admission would aim to keep in the 140 - 160s to prevent overcontrol and renal hypoperfusion hold ADAMA-I in the setting of diuresis (but would restart eventually given #3) blood pressure doing better (6) Chronic heel ulcer: Qualifiers: Laterality: right Non-pressure ulcer stage: unspecified non-pressure ulcer stage Qualified Code(s): L97.419 - Non-pressure chronic ulcer of right heel and midfoot with unspecified severity Code(s): L97.409 - Non-pressure chronic ulcer of unspecified heel and midfoot with unspecified severity Status: Chronic Assessment and Plan: has been an issues for the last 2 - 3 months was recommended to have right BKA by Vascular Surgery at [facility] (as well as by other surgeons at another hospital) but she refused this intervention was treated with 6 weeks of IV antibiotics already (was being followed by [facility] Infectious Disease) General Surgery following - had planned debridement but procedure on hold (7) Diabetes mellitus with chronic kidney disease: Code(s): E11.22 - Type 2 diabetes mellitus with diabetic chronic kidney disease Status: Chronic Assessment and Plan: noted poor control with as
--- NOTE | 2023-08-11 11:05 | P.PNNP_ITS ---
Progress Note: A&P Assessment and Plan (1) Volume overload: Code(s): E87.70 - Fluid overload, unspecified Status: Chronic Assessment and Plan: * anasarca noted on presentation (but appears a chronic issue) * has had several hospitalizations in the last 4 months regarding this issue * felt to be secondary to nephrotic range proteinuria/nephrotic syndrome and diastolic heart failure * off amlodipine * agree with diuresis as tolerated * on albumin, Bumex, and metolazone. * serum albumin better * urine output better (but would expected more of a response with current therapy) * unfortunately, creatinine rising.... * checking 24hour urine creatinine to see if her GFR is actually worse than predicted by the estimate from the blood work * I am worried she may need more invasive measures (i.e. dialysis/ultrafiltr ation) to optimize her volume status.... (2) Stage 3b chronic kidney disease: Code(s): N18.32 - Chronic kidney disease, stage 3b Status: Chronic Assessment and Plan: * has fluctuated to extremes over the last few months * has been as low as 1.2mg/dl to as high as 3.0mg/dl * these fluctuations are related to her issues with volume overload, need for diuretics, suspected renal venous HTN, and recurrent infections/wounds * baseline creatinine seems to average out to 1.4 - 1.8mg/dl * due to diabetes (with associated complications of retinopathy and neuropathy), hypertension, vascular disease and obesity * expect further fluctuations in creatinine with this admission/hospitalization as well (need for aggressive diuresis, infection/bacteremia, wound care...etc) * continue diuretics (3) Nephrotic syndrome: Code(s): N04.9 - Nephrotic syndrome with unspecified morphologic changes Status: Chronic Assessment and Plan: * noted in the last 4 months: * nephrotic range proteinuria (> 11 grams on this admission) * significant issues with edema/swelling * hypoalbuminemia (serum albumin as low as 1.5mg/dl in the past) * presumably secondary to poorly controlled diabetes in association with hypertension complicated by poor nutrition status * Adama-I on hold but she will eventually need this restarted * see #1 (4) CHF (congestive heart failure): Qualifiers: Heart failure chronicity: acute on chronic Heart failure type: unspecified Qualified Code(s): I50.9 - Heart failure, unspecified Code(s): I50.9 - Heart failure, unspecified Status: Chronic Assessment and Plan: * diastolic dysfunction noted by Echo * continue diuresis as tolerated (5) Hypertension: Code(s): I10 - Essential (primary) hypertension Status: Chronic Assessment and Plan: * poor control at baseline * noted to be in the 200s systolic on admission * would aim to keep in the 140 - 160s to prevent overcontrol and renal hypoperfusion * hold ADAMA-I in the setting of diuresis (but would restart eventually given #3) * blood pressure doing better (6) Chronic heel ulcer: Qualifiers: Laterality: right Non-pressure ulcer stage: unspecified non-pressure ulcer stage Qualified Code(s): L97.419 - Non-pressure chronic ulcer of right heel and midfoot with unspecified severity Code(s): L97.409 - Non-pressure chronic ulcer of unspecified heel and midfoot with unspecified severity Status: Chronic Assessment and Plan: * has been an issues for the last 2 - 3 months * was recommended to have right BKA by Vascular Surgery at [facility] (as well as by other surgeons at another hospital) bu
[2023-08-11 11:31] LABS: Glucose Point of Care 144 mg/dl (65-105)
[2023-08-11 16:02] LABS: Glucose Point of Care 145 mg/dl (65-105)
[2023-08-12] VITALS (15 sets, daily range): BP systolic 85–189; BP diastolic 61–101; PULSE 38–85; RESP 18–21; TEMP 36–37.6; O2SAT 85–96
[2023-08-12 07:29] LABS: Glucose Point of Care 133 mg/dl (65-105)
--- NOTE | 2023-08-12 08:21 | ECG_ITS ---
Measurements Intervals Remer Rate: 77 P: 36 OR: 151 QRS: -10 QRSD: 90 T: -6 QT: 401 QTc: 455 Interpretive Statements SINUS RHYTHM COMPARED TO ECG 08/04/2023 17:58:15 NO SIGNIFICANT CHANGES Electronically Signed On 08-12-2023 16:21:03 CDT by Angely Galvez M.D.
[2023-08-12 08:22] LABS: Glucose Point of Care 148 mg/dl (65-105)
[2023-08-12] MEDS: CEFEPIME 2 GM/NS 50 ML 2 GM/50 ML BAG IVPB (08:27)
[2023-08-12] MEDS: carvediloL 12.5 MG TABLET PO ×2 (08:48→23:23)
[2023-08-12] MEDS: ALBUMIN HUMAN 25% 25 GM/100 ML 100 ML IVPB ×2 (08:51→16:54)
[2023-08-12] MEDS: COLLAGENASE OINT 30 GM TUBE 1 APPLIC TOPICAL (08:52)
[2023-08-12] MEDS: TOLNAFTATE 1% POWDER 45 GM BTL 1 APPLIC TOPICAL (08:52)
[2023-08-12] MEDS: EUCERIN CREAM 120 GM JAR 1 APPLIC TOPICAL (08:53)
[2023-08-12] MEDS: FERROUS SULFATE 325 MG TABLET DR BY MOUTH (08:53)
[2023-08-12] MEDS: MULTIVITAMINS THERAPEUTIC TAB (*BKC) 1 TABLET PO (08:53)
[2023-08-12] MEDS: ASCORBIC ACID 500 MG TABLET PO ×2 (08:53→16:55)
[2023-08-12] MEDS: POTASSIUM CHLORIDE 20 MEQ ER TABLET PO (08:53)
[2023-08-12 08:59] LABS: Basophils Percent Auto 0.2 % (0.2-1.2); Eosinophils Absolute Auto 0.4 K/mm3 (0-0.3); Eosinophils Percent Auto 4.8 % (0-4.4); Hematocrit 24.4 % (37.0-47.0); Hemoglobin 7.4 g/dL (12.0-15.0); Immature Granulocyte Absolute 0.03 K/mm3 (0.00-0.031); Immature Granulocyte Percent A 0.4 % (0-0.5); Lymphocytes Absolute Auto 0.89 K/mm3 (0.9-3.2); Lymphocytes Percent Auto 10.6 % (18.3-44.2); Mean Corpuscular HGB Conc 30.3 g/dl (32-36); Mean Corpuscular Volume 95.7 fl (80-100); Mean Platelet Volume 10.3 fl (7.4-10.4); Monocytes Absolute Auto 0.4 K/mm3 (0.1-0.6); Monocytes Percent Auto 4.6 % (2.6-8.5); Neutrophils Absolute Auto 6.7 K/mm3 (1.3-6.7); Neutrophils Percent Auto 79.4 % (45.5-73.1); Platelet Count Result 254 k/mm3 (150-375); Red Blood Count 2.55 M/mm3 (4.2-5.4); Red Cell Distribution Width 15.4 % (11.5-14.5); White Blood Count 8.4 K/mm3 (4.5-10.0)
[2023-08-12 09:14] LABS: Alanine Aminotransferase 14 U/L (6-35); Albumin Level 3.1 g/dL (3.5-5.1); Alkaline Phosphatase 84 U/L (38-126); Anion Gap 6 mmol/L (8-16); Aspartate Amino Transferase 25 U/L (14-36); Bilirubin,Total 1.1 mg/dL (0.2-1.3); Blood Urea Nitrogen 24 mg/dL (7-17); Calcium 8.4 mg/dL (8.4-10.2); Carbon Dioxide 30 mmol/L (22-30); Chloride 106 mmol/L (98-107); Estimated CRCL calculation 43 ml/min; Estimated Glomerular Filt Rate 25; Glucose 132 mg/dL (65-110); Potassium 3.4 mmol/L (3.4-5.0); Sodium 142 mmol/L (137-145)
[2023-08-12 09:17] LABS: INR 1.4; Prothrombin Time 18.3 Seconds (11.1-14.7)
[2023-08-12 09:33] LABS: Vancomycin Trough 18.8 ug/mL (10.0-20.0)
[2023-08-12] MEDS: metOLazone 5 MG TABLET PO (10:05)
[2023-08-12] MEDS: SILVER NITRATE (*SP) STICK 1 EACH TOPICAL (10:05)
[2023-08-12] MEDS: BUMETANIDE INJ 1 MG/4 ML VIAL 2 MG IV PUSH (10:05)
--- NOTE | 2023-08-12 10:50 | P.PNNP_ITS ---
Progress Note: A&P Assessment and Plan (1) Volume overload: Code(s): E87.70 - Fluid overload, unspecified Status: Chronic Assessment and Plan: * only mild improvemetm * anasarca noted on presentation (but appears a chronic issue) * has had several hospitalizations in the last 4 months regarding this issue * felt to be secondary to nephrotic range proteinuria/nephrotic syndrome and diastolic heart failure * off amlodipine * agree with diuresis as tolerated * on albumin, Bumex, and metolazone. * serum albumin better * urine output better (but would expected more of a response with current therapy) * unfortunately, creatinine rising....and ONLY 2L negative cumulatively since admission * checking 24hour urine creatinine to see if her GFR is actually worse than predicted by the estimate from the blood work * I am worried she may need more invasive measures (i.e. dialysis/ultrafiltration) to optimize her volume status.... (2) Stage 3b chronic kidney disease: Code(s): N18.32 - Chronic kidney disease, stage 3b Status: Chronic Assessment and Plan: * has fluctuated to extremes over the last few months * has been as low as 1.2mg/dl to as high as 3.0mg/dl * these fluctuations are related to her issues with volume overload, need for diuretics, suspected renal venous HTN, and recurrent infections/wounds * baseline creatinine seems to average out to 1.4 - 1.8mg/dl * due to diabetes (with associated complications of retinopathy and neuropathy), hypertension, vascular disease and obesity * expect further fluctuations in creatinine with this admission/hospitalization as well (need for aggressive diuresis, infection/bacteremia, wound care...etc) * continue diuretics (3) Nephrotic syndrome: Code(s): N04.9 - Nephrotic syndrome with unspecified morphologic changes Status: Chronic Assessment and Plan: * noted in the last 4 months: * nephrotic range proteinuria (> 11 grams on this admission) * significant issues with edema/swelling * hypoalbuminemia (serum albumin as low as 1.5mg/dl in the past) * presumably secondary to poorly controlled diabetes in association with hypertension complicated by poor nutrition status * Adama-I on hold but she will eventually need this restarted * see #1 (4) CHF (congestive heart failure): Qualifiers: Heart failure chronicity: acute on chronic Heart failure type: unspecified Qualified Code(s): I50.9 - Heart failure, unspecified Code(s): I50.9 - Heart failure, unspecified Status: Chronic Assessment and Plan: * diastolic dysfunction noted by Echo * continue diuresis as tolerated (5) Hypertension: Code(s): I10 - Essential (primary) hypertension Status: Chronic Assessment and Plan: * poor control at baseline * noted to be in the 200s systolic on admission * would aim to keep in the 140 - 160s to prevent overcontrol and renal hypoperfusion * hold ADAMA-I in the setting of diuresis (but would restart eventually given #3) * blood pressure doing better (6) Chronic heel ulcer: Qualifiers: Laterality: right Non-pressure ulcer stage: unspecified non-pressure ulcer stage Qualified Code(s): L97.419 - Non-pressure chronic ulcer of right heel and midfoot with unspecified severity Code(s): L97.409 - Non-pressure chronic ulcer of unspecified heel and midfoot with unspecified severity Status: Chronic Assessment and Plan: * has been an issues for the last 2 - 3 months * was recommended to have right BKA
--- NOTE | 2023-08-12 10:50 | PM.PNNEP ---
Progress Note: A&P Assessment and Plan (1) Volume overload: Code(s): E87.70 - Fluid overload, unspecified Status: Chronic Assessment and Plan: only mild improvemetm anasarca noted on presentation (but appears a chronic issue) has had several hospitalizations in the last 4 months regarding this issue felt to be secondary to nephrotic range proteinuria/nephrotic syndrome and diastolic heart failure off amlodipine agree with diuresis as tolerated on albumin, Bumex, and metolazone. serum albumin better urine output better (but would expected more of a response with current therapy) unfortunately, creatinine rising....and ONLY 2L negative cumulatively since admission checking 24hour urine creatinine to see if her GFR is actually worse than predicted by the estimate from the blood work I am worried she may need more invasive measures (i.e. dialysis/ultrafiltration) to optimize her volume status.... (2) Stage 3b chronic kidney disease: Code(s): N18.32 - Chronic kidney disease, stage 3b Status: Chronic Assessment and Plan: has fluctuated to extremes over the last few months has been as low as 1.2mg/dl to as high as 3.0mg/dl these fluctuations are related to her issues with volume overload, need for diuretics, suspected renal venous HTN, and recurrent infections/wounds baseline creatinine seems to average out to 1.4 - 1.8mg/dl due to diabetes (with associated complications of retinopathy and neuropathy), hypertension, vascular disease and obesity expect further fluctuations in creatinine with this admission/hospitalization as well (need for aggressive diuresis, infection/bacteremia, wound care...etc) continue diuretics (3) Nephrotic syndrome: Code(s): N04.9 - Nephrotic syndrome with unspecified morphologic changes Status: Chronic Assessment and Plan: noted in the last 4 months: nephrotic range proteinuria (> 11 grams on this admission) significant issues with edema/swelling hypoalbuminemia (serum albumin as low as 1.5mg/dl in the past) presumably secondary to poorly controlled diabetes in association with hypertension complicated by poor nutrition status Adama-I on hold but she will eventually need this restarted see #1 (4) CHF (congestive heart failure): Qualifiers: Heart failure chronicity: acute on chronic Heart failure type: unspecified Qualified Code(s): I50.9 - Heart failure, unspecified Code(s): I50.9 - Heart failure, unspecified Status: Chronic Assessment and Plan: diastolic dysfunction noted by Echo continue diuresis as tolerated (5) Hypertension: Code(s): I10 - Essential (primary) hypertension Status: Chronic Assessment and Plan: poor control at baseline noted to be in the 200s systolic on admission would aim to keep in the 140 - 160s to prevent overcontrol and renal hypoperfusion hold ADAMA-I in the setting of diuresis (but would restart eventually given #3) blood pressure doing better (6) Chronic heel ulcer: Qualifiers: Laterality: right Non-pressure ulcer stage: unspecified non-pressure ulcer stage Qualified Code(s): L97.419 - Non-pressure chronic ulcer of right heel and midfoot with unspecified severity Code(s): L97.409 - Non-pressure chronic ulcer of unspecified heel and midfoot with unspecified severity Status: Chronic Assessment and Plan: has been an issues for the last 2 - 3 months was recommended to have right BKA by Vascular Surgery at [facility] (as well as by other surgeons at another hospital) but she refused this intervention was treated with 6 weeks of IV antibiotics already (was being followed by [facility] Infectious Disease) General Surgery following - had planned debridement but procedure on hold (7) Diabetes mellitus with chronic kidney disease: Code(s): E11.22 - Type 2 diabetes mellitus with diabetic chronic kidney disease
--- NOTE | 2023-08-12 11:06 | PM.IMPN ---
Progress Note: A&P Assessment and Plan (1) CHF (congestive heart failure): Qualifiers: Heart failure chronicity: acute on chronic Heart failure type: unspecified Qualified Code(s): I50.9 - Heart failure, unspecified Code(s): I50.9 - Heart failure, unspecified Status: Chronic (2) Nephrotic range proteinuria: Code(s): R80.9 - Proteinuria, unspecified Status: Acute (3) Diabetic nephropathy with proteinuria: Code(s): E11.21 - Type 2 diabetes mellitus with diabetic nephropathy Status: Chronic (4) Obstructive sleep apnea: Code(s): G47.33 - Obstructive sleep apnea (adult) (pediatric) Status: Acute (5) Acute hypoxic respiratory failure: Code(s): J96.01 - Acute respiratory failure with hypoxia Status: Acute (6) Pleural effusion: Code(s): J90 - Pleural effusion, not elsewhere classified Status: Acute (7) Acute pericardial effusion: Code(s): I30.9 - Acute pericarditis, unspecified Status: Acute (8) Malignant hypertension: Code(s): I10 - Essential (primary) hypertension Status: Acute (9) Chronic heel ulcer: Qualifiers: Laterality: right Non-pressure ulcer stage: unspecified non-pressure ulcer stage Qualified Code(s): L97.419 - Non-pressure chronic ulcer of right heel and midfoot with unspecified severity Code(s): L97.409 - Non-pressure chronic ulcer of unspecified heel and midfoot with unspecified severity Status: Chronic Plan 1. CHF echo shows diastolic dysfunction continue diuresis complicated by nephrotic syndrome Currently on 5L. Trouble maintaining fluid balance, may need hemodialysis, per Nephrology 2. Nephrotic syndrome Per nephrology 3. DM f/u hba1c 4. CKD 2/3 recommend consulting nephrology and discussing nephrotic syndrome 5. Severe body wall edema Monitor 6. EDD CPAP 5. May need bipap instead 7. Anticoagulation coumadin for provoked UE with picc line per pt at care home stop coumadin start lovenox for dvt prophylaxis (60mg q12 sq) she does have increased risk of dvt with nephrotic syndrome ? need to resume AC, repeat ultrasounds of the upper extremities negative. 8. R foot wound start ancef after wound culture of R foot wound care consulted gen surg consulted - plan for debridement at some point. Continue antibiotics. Cultures no 9. BL blindness R worse than L unclear cause f/u MR brain without con to r/o tumor Needs an ophthalmology consult as outpaitient has been present for over a year Subjective Date/time seen: 08/12/23 11:06 Interval history: No complaints Exam Narrative: Const:?? Other: Morbidly o bese, acute on chr onic ill-appearing , debilitated, sit ting up in bed wit h head of bed at 4 0? ? HENMT:?? Other: head is no rmocephalic atraum atic ? Eyes:?? Other: Pupils are equal, slowed twila ction, marked conj unctival erythema of the left eye, i rregular movements of the right eye ? Neck:?? Other: Positive J VD, large neck cir cumference, trache a midline ? Chest:?? Other: Nontender palpation, dried f laking skin from t he breasts bilater ally ? Resp:?? Other: Decreased breath sounds at t he bases, crackles bilaterally ? Cardio:?? Other: Irregular rhythm, regular ra te, 2+ bilateral r
--- NOTE | 2023-08-12 11:13 | PM.PNGS ---
Progress Note: A&P Assessment and Plan (1) Chronic heel ulcer: Qualifiers: Laterality: right Non-pressure ulcer stage: unspecified non-pressure ulcer stage Qualified Code(s): L97.419 - Non-pressure chronic ulcer of right heel and midfoot with unspecified severity Code(s): L97.409 - Non-pressure chronic ulcer of unspecified heel and midfoot with unspecified severity Status: Chronic Assessment and Plan: Necrotic, foul-smelling right heel ulcer with sub stand if purulent and tissue. Patient has been to unstable with volume overload and renal failure to safely debride in the operating room. I discussed this with her mother. We will go ahead and debride at the bedside as best we can. She has significant neuropathy and will most likely be fairly successful. Patient also anticoagulated so will be careful not to be too aggressive and create significant bleeding. (2) Diabetes mellitus with chronic kidney disease: Code(s): E11.22 - Type 2 diabetes mellitus with diabetic chronic kidney disease Status: Chronic (3) Volume overload: Code(s): E87.70 - Fluid overload, unspecified Status: Chronic (4) Chronic 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: Code(s): Z79.01 - roasterman (current) use of 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 Status: Chronic Assessment and Plan: INR less than 1.5 today (5) Diabetic neuropathy: Code(s): E11.40 - Type 2 diabetes mellitus with diabetic neuropathy, unspecified Status: Chronic Subjective Subjective Date/Time Seen: 08/12/23 11:13 Patient reports: other (Persistent necrotic right heel ulcer) Review of Systems Review of Systems: ROS unobtainable: Yes unobtainable due to medical condition Exam Const: General: comfortable, no acute distress, tired appearing, obese and edematous Orientation/consciousness: lethargic Extrem: Right lower extremity: foot (Necrotic foul smelling ulcer plantar surface heel) Objective Data Vital Signs Vital Signs: Vital Signs - 24 hr 08/11/23 11:15 08/11/23 11:20 08/11/23 11:25 Temperature Pulse Rate Respiratory Rate Blood Pressure Pulse Oximetry 86 L 89 L 93 Oxygen Delivery Nasal Cannula Nasal Cannula Nasal Cannula Oxygen Flow Rate 3 4 5 08/11/23 14:00 08/11/23 12:00 08/11/23 16:00 Temperature 36.9 C Pulse Rate 75 76 79 Respiratory Rate 16 Blood Pressure 139/71 Pulse Oximetry 91 Oxygen Delivery Oxygen Flow Rate 08/11/23 20:44 08/11/23 21:31 08/11/23 20:00 Temperature 37.5 C Pulse Rate 80 80 Respiratory Rate 20 Blood Pressure 165/81 H Pulse Oximetry 92 92 Oxygen Delivery Nasal Cannula Oxygen Flow Rate 5 08/11/23 20:00 08/12/23 04:00 08/12/23 06:00 Temperature 36.9 C Pulse Rate 80 79 80 Respiratory Rate 20 Blood Pressure 145/75 H Pulse Oximetry 96 Oxygen Delivery Oxygen Flow Rate 08/12/23 07:52 08/12/23 08:25 08/12/23 08:10 Temperature 36.6 C Pulse Rate 79 80 38 L Respiratory Rate 20 Blood Pressure 155/82 H 177/101 H 85/61 L Pulse Oximetry 91 91 85 L Oxygen Delivery Oxygen Flow Rate 08/12/23 08:48 08/12/23 10:08 08/12/23 10:08 Temperature Pulse Rate 77 76 Respiratory Rate Blood Pressure 154/82 H Pulse Oximetry 90 90 Oxygen Delivery Nasal Cannula Oxygen Flow Rate 5 Intake/Output Intake/Output: Intake & Output 08/09/23 08/10/23 08/11/23 08/12/23 23:59 23:59 23:59 23:59 Intake Total 918 300 540 Output Total 200 1800 2100 1200 Balance [phone] -[phone] -0339 -1200 Meds/Results Medications: Active Medications Generic Name Dose Route Start Last Admin Trade Name Freq PRN Reason Stop Dose Admin Ascorbic Acid 500 mg 08/05/23 09:00 08/12/23 08:53 Ascorbic Acid 500 Mg Tablet PO 500 mg BID ERICK Administration Bumetanide 2 mg 08/09/23 09:30 08/12/23 10:05 Bumetanide Inj 1 Mg/4 Ml Vial IV PUSH 2 mg 0930,1730 [facility] Administration Carvedilol 12.5 mg 08/12/23 09:00 08/12/23 08
--- NOTE | 2023-08-12 11:17 | W.PM.PROC2 ---
Procedure Note - Detailed Date of Procedure 08/12/23 Pre-op Diagnosis Infected, necrotic right heel plantar ulcer Post-op Diagnosis Same Procedure Performed Excisional debridement right heel ulcer to include food skin, subcutaneous, muscle. Surgeon Tyrel Beltre MD General Studies Program Chair VERA Ngo. Anesthesia None Indications Patient has diabetic neuropathy and little sensation in her right foot. She has developed a right heel ulcer with foul-smelling necrotic and purulent material in the ulcer. She is having this debrided at the bedside at this time to promote better healing. Findings Necrotic and purulent tissue was noted. There was liquefaction necrosis. Also the ulcer tract distally on the plantar surface about 4 cm in the direction of her toes. Was able to debride most of the tissue in tract. I was able to debride nearly all the tissue in the ulcer that was open. Description of Procedure Patient was lying in her hospital bed. We were able to elevate her right leg and place a pillow under her ankle so that the heel ulcer was adequately exposed. The skin around the ulcer was prepped with ChloraPrep. Then necrotic and purulent skin subcutaneous and muscle were carefully debrided from the ulcer. The ulcer went all the way to the calcaneus. There was a wound tract heading distally towards the toes. There was tissue throughout the tract and in the ulcer itself. Although we were not able to visualize the tract, by palpation, nearly all the tissue in the tract was debrided. The debrided tissues included skin subcutaneous and muscle. The area debrided was 6 by 4 by 3 cm. There was minimal oozing of blood as we had stayed away from obviously vascular tissue. I did packed the wound with 2 in iodoform Nu Gauze to tamponade any oozing of blood. The ulcer was then covered with bulky 4x4s and Kerlix wrap. The right lower leg was elevated at the ankle level with a pillow under the ankle and lower leg so that the area of the heel ulcer was not in contact with her bed or the pillow. Patient was very comfortable and in fact slept through most of the procedure. Estimated Blood Loss -2 Urine Output 400 Drains No Packing Yes (2 in iodoform Nu Gauze) Pathology None sent Complications No immediate complications Condition Stable Disposition No change [facility] Billing Surgery - Charge Forward: Surgery Billing (6 x 4 x 3 cm excisional debridement right foot, total of 72 cm3.)
[2023-08-12 11:25] LABS: Glucose Point of Care 152 mg/dl (65-105)
[2023-08-12] MEDS: FUROSEMIDE INJ 40 MG/4 ML VIAL IV PUSH ×2 (15:11→22:22)
[2023-08-12 16:16] LABS: Glucose Point of Care 156 mg/dl (65-105)
[2023-08-12] MEDS: BUMETANIDE INJ 1 MG/4 ML VIAL 3 MG IV PUSH (18:34)
[2023-08-12 20:54] LABS: Glucose Point of Care 147 mg/dl (65-105)
--- NOTE | 2023-08-12 22:09 | ECG_ITS ---
Measurements Intervals [place] Rate: 84 P: 43 MO: 145 QRS: -5 QRSD: 86 T: 12 QT: 368 QTc: 437 Interpretive Statements SINUS RHYTHM NONSPECIFIC T-WAVE ABNORMALITY ABNORMAL ECG COMPARED TO ECG 08/12/2023 08:39:03 NO SIGNIFICANT CHANGES Electronically Signed On 08-13-2023 10:29:49 CDT by Golden Mauricio M.D.
[2023-08-12 22:28] LABS: Alveolar/Arterial O2 Gradient 319.3 mmHg; Base Excess ABG 4.8 mEq/l (+/-2.0); Fractional Inspired Oxygen 60 %; HCO3 ABG 29.6 mEq/l (22.0-26.0); Oxygen Content ABG 10.4 %vol (16.0-22.0); Oxygen Saturation ABG 91.1 % (95.0-100.0); PCO2 ABG 45.2 mmHg (35.0-45.0); PO2 ABG 58.8 mmHg (80.0-100.0); PO2 FiO2 Ratio Arterial Blood 0.98 %; Total Hemoglobin 8.4 g/dL (12.0-18.0); pH ABG 7.434 (7.350-7.450)
[2023-08-12 22:29] LABS: Device NASAL CANNULA; Modified Allen's Test Pass; Oxyhemoglobin 87.4 % THb (90.0-100.0); Site Drawn RIGHT RADIAL
[2023-08-12 22:30] LABS: Hemoglobin 7.5 g/dL (12.0-15.0); Mean Corpuscular HGB Conc 31.3 g/dl (32-36); Mean Corpuscular Hemoglobin 29.2 pg (26-34); Mean Corpuscular Volume 93.4 fl (80-100); Mean Platelet Volume 10.1 fl (7.4-10.4); Platelet Count Result 250 k/mm3 (150-375); Red Blood Count 2.57 M/mm3 (4.2-5.4); Red Cell Distribution Width 15.2 % (11.5-14.5); White Blood Count 7.9 K/mm3 (4.5-10.0)
[2023-08-12 22:35] LABS: Glucose Point of Care 145 mg/dl (65-105)
--- NOTE | 2023-08-12 22:36 | PC.NURSE ---
PT HAD PREVIOUSLY COMPLAINED ABOUT THE JUSTIN BED BEING UNCOMFORTABLE SO IT WAS DECIDED TO MOVE THE PT BACK TO A REGULAR BED FOR COMFORT. ENTERED PT ROOM IN ORDER TO MOVE PT BACK TO REGULAR BED AND NOTICED HER NC WITH 6L 02 WAS OFF AND BEHIND HER NECK. PT HAD PREVIOUSLY COMPLAINED ABOUT SHORTNESS OF BREATH BUT 02 SAT REMAINED IN THE 90'S ON 6L. SATS WERE IN THE 70S WITH THE O2 OFF. PT HAD A GLAZED OVER WITH EYES WIDE OPEN. PT THEN CLOSED EYES AND BECAME UNRESPONSIVE. CHARGE NURSE WAS IN THE ROOM AND BEGAN STERNAL RUBBING PT WITH NO RESPONSE. RAPID RESPONSE CALLED. PT BP WAS HIGH SBP IN THE 200S. 02 WAS TURNED TO 10 L AND PT DID START TO WAKE UP AND 02 SATS RETURNED TO THE 90'S. BS CHECKED WAS 145. WHILE THE RAPID RESPONSE TEAM WAS IN THE ROOM FAMILY CAME IN AND PT BEGAN TO TALK WITH SISTER. DR ALVARADO ORDERED LABS, EKG, AND CXR. ALSO A 1X DOSE OF LASIX. DR ALVARADO ADVISED ME TO HOLD OFF ON 2100 COREG. PT RESTING WITH FAMILY AT BEDSIDE WILL REPEAT VITALS.
[2023-08-12 22:41] LABS: Anion Gap 5 mmol/L (8-16); Blood Urea Nitrogen 25 mg/dL (7-17); Calcium 8.8 mg/dL (8.4-10.2); Carbon Dioxide 32 mmol/L (22-30); Chloride 105 mmol/L (98-107); Estimated CRCL calculation 43 ml/min; Estimated Glomerular Filt Rate 25; Glucose 139 mg/dL (65-110); Lactic Acid Reflex 0.8 mmol/L (0.7-2.0); Magnesium 1.9 mg/dL (1.6-2.3); Phosphorus 3.9 mg/dL (2.5-4.5); Potassium 3.4 mmol/L (3.4-5.0); Sodium 142 mmol/L (137-145)
[2023-08-12 22:53] LABS: Troponin I < 0.012 ng/mL (0.000-0.034)
[2023-08-13] VITALS (23 sets, daily range): BP systolic 153–176; BP diastolic 76–89; PULSE 78–96; RESP 20–22; TEMP 36.2–37.6; O2SAT 91–97
--- NOTE | 2023-08-13 00:19 | PC.NURSE ---
PT MOVED FROM JUSTIN BED BACK TO REGULAR BED. APPEARS COMFORTABLE. FAMILY STILL AT BEDSIDE
--- NOTE | 2023-08-13 00:38 | P.PNCROSS_ITS ---
Event Note Event Note Event Note: Rapid response was called to patient's room after she became unresponsive brief ly. Subjective: Am not feeling well Objective: Chronically ill-looking patient in bed, on 10 L of high-flow nasal cannula Blood pressure 200/80 pulse ox 96% heart rate 95 General: Chronically-ill patient in bed, morbidly obese HEENT: Atraumatic normocephalic Respiratory: Crackles, overall diminished Cardiovascular: S1-S2 to her Abdomen: Large pannus, soft, nontender, no hepatosplenomegaly. Extremities: Left AKA, right lower extremity edema with chronic skin changes and discoloration dressing in place at the level of the foot and ankle Central nervous system: patient is obtunded, face is symmetric Assessment and plan: 1. Uncontrolled hypertension: Patient given Lasix 2. acute lung edema: Patient on supplemental oxygen by nasal can, given Lasix. 3.hypoxic respiratory failure: likely secondary to above, breathing treatments, fluid restriction.
--- NOTE | 2023-08-13 02:14 | PC.NURSE ---
PT REFUSING BIPAP. RESPIRATORY CAME TO TAKE IT OUT OF THE ROOM AND REQUESTED I TAKE OUT THE ORDER IN THE COMPUTER. PT IS AWARE OF THE NEED TO WEAR BIPAP AND HAS CONTINUOUSLY REFUSED IT THROUGHOUT HOSPITAL STAY. CPAP/BIPAP ORDER STOPPED.
--- NOTE | 2023-08-13 04:36 | PC.NURSE ---
Entered pt room to check 02. Pt had pulled NC off. Educated pt on importance of keeping the O2 on. Pt continues to take off the NC. Staff frequently entering the room to make sure NC is on pt. Family aware of pt behavior.
[2023-08-13] MEDS: hydrALAZINE HCL 20 MG/ML VIAL 10 MG IV PUSH (06:14)
--- NOTE | 2023-08-13 07:16 | PC.NURSE ---
On 08/06/23, the student, Lizzy Arreaga, provided care and completed [facility] documentation on this patient. I have reviewed the student's documentation and agree with the findings.
[2023-08-13 07:23] LABS: Basophils Percent Auto 0.4 % (0.2-1.2); Eosinophils Absolute Auto 0.4 K/mm3 (0-0.3); Eosinophils Percent Auto 4.9 % (0-4.4); Hematocrit 22.9 % (37.0-47.0); Hemoglobin 7.2 g/dL (12.0-15.0); Immature Granulocyte Absolute 0.04 K/mm3 (0.00-0.031); Immature Granulocyte Percent A 0.5 % (0-0.5); Lymphocytes Absolute Auto 1.04 K/mm3 (0.9-3.2); Mean Corpuscular HGB Conc 31.4 g/dl (32-36); Mean Corpuscular Hemoglobin 29.1 pg (26-34); Mean Corpuscular Volume 92.7 fl (80-100); Mean Platelet Volume 10.8 fl (7.4-10.4); Monocytes Absolute Auto 0.5 K/mm3 (0.1-0.6); Monocytes Percent Auto 6.8 % (2.6-8.5); Neutrophils Percent Auto 74.4 % (45.5-73.1); Nucleated Red Blood Cells Perc 0.4 % (0.0-0.2); Platelet Count Result 254 k/mm3 (150-375); Red Blood Count 2.47 M/mm3 (4.2-5.4); Red Cell Distribution Width 14.9 % (11.5-14.5)
[2023-08-13 07:33] LABS: INR 1.4; Prothrombin Time 18.2 Seconds (11.1-14.7)
[2023-08-13 07:36] LABS: Alanine Aminotransferase 17 U/L (6-35); Albumin Level 3.3 g/dL (3.5-5.1); Alkaline Phosphatase 92 U/L (38-126); Anion Gap 4 mmol/L (8-16); Aspartate Amino Transferase 25 U/L (14-36); Blood Urea Nitrogen 26 mg/dL (7-17); Calcium 8.7 mg/dL (8.4-10.2); Carbon Dioxide 33 mmol/L (22-30); Chloride 104 mmol/L (98-107); Estimated CRCL calculation 41 ml/min; Estimated Glomerular Filt Rate 24; Glucose 130 mg/dL (65-110); Potassium 3.3 mmol/L (3.4-5.0); Sodium 141 mmol/L (137-145)
[2023-08-13 07:41] LABS: Glucose Point of Care 140 mg/dl (65-105)
[2023-08-13 07:41] LABS: Glucose Point of Care 138 mg/dl (65-105)
[2023-08-13] MEDS: FERROUS SULFATE 325 MG TABLET DR BY MOUTH (08:03)
[2023-08-13] MEDS: MULTIVITAMINS THERAPEUTIC TAB (*BKC) 1 TABLET PO (08:03)
[2023-08-13] MEDS: ASCORBIC ACID 500 MG TABLET PO (08:03)
[2023-08-13] MEDS: POTASSIUM CHLORIDE 20 MEQ ER TABLET PO (08:03)
[2023-08-13] MEDS: CEFEPIME 2 GM/NS 50 ML 2 GM/50 ML BAG IVPB ×2 (08:04→21:50)
[2023-08-13] MEDS: carvediloL 12.5 MG TABLET PO ×2 (08:06→20:25)
[2023-08-13] MEDS: EUCERIN CREAM 120 GM JAR 1 APPLIC TOPICAL (08:06)
[2023-08-13] MEDS: TOLNAFTATE 1% POWDER 45 GM BTL 1 APPLIC TOPICAL (08:06)
[2023-08-13] MEDS: COLLAGENASE OINT 30 GM TUBE 1 APPLIC TOPICAL (08:07)
[2023-08-13] MEDS: ALBUMIN HUMAN 25% 25 GM/100 ML 100 ML IVPB ×2 (08:48→21:51)
[2023-08-13] MEDS: metOLazone 5 MG TABLET 10 MG PO (08:48)
--- NOTE | 2023-08-13 09:23 | PC.NURSE ---
At 0900 patient was not responding to verbal commands. Patients oxygen was on and patient had an oxygen stat of 96% that was maintaining while in the room. Patient finally responded to physical stimuli and attempted to take morning medication. Patient vomited immediately after taking medication. Will notify provider.
[2023-08-13] MEDS: BUMETANIDE INJ 1 MG/4 ML VIAL 3 MG IV PUSH ×2 (09:57→21:50)
--- NOTE | 2023-08-13 10:42 | PC.NURSE ---
Patient was unable to keep morning medication down. She had 3 episodes of emesis immediately after taking morning medication. Notified provider.
[2023-08-13 11:31] LABS: Glucose Point of Care 114 mg/dl (65-105)
[2023-08-13 12:12] LABS: Glucose Point of Care 122 mg/dl (65-105)
[2023-08-13 12:18] LABS: Alveolar/Arterial O2 Gradient 275.4 mmHg; Base Excess ABG 6.3 mEq/l (+/-2.0); HCO3 ABG 30.9 mEq/l (22.0-26.0); Modified Allen's Test Pass; Oxygen Content ABG 10.7 %vol (16.0-22.0); Oxyhemoglobin 90.8 % THb (90.0-100.0); PO2 ABG 66.7 mmHg (80.0-100.0); PO2 FiO2 Ratio Arterial Blood 1.21 %; Site Drawn RIGHT RADIAL; Total Hemoglobin 8.3 g/dL (12.0-18.0); pH ABG 7.454 (7.350-7.450)
[2023-08-13 12:19] LABS: Device NASAL CANNULA
[2023-08-13 12:20] LABS: Fractional Inspired Oxygen 50 %
--- NOTE | 2023-08-13 12:24 | PC.NURSE ---
Around 1145 student nurses found patient in room with oxygen off. Patient was not allowing them to place oxygen back on and was stating in the high 50s. This nurse placed oxygen on and was able to get an oxygen reading of 95% maintaining. Patient only responding to physical stimuli at this time. Notified Dr. Fournier of change in status.
--- NOTE | 2023-08-13 12:28 | PC.NURSE ---
Addendum entered by Petra Turner RN 08/13/23 12:49: Patient moving to IMU room 201 Original Note: Rapid response called on patient due to change in status. Dr. Alvarado was already in the room. Patient moving to ICU Room 201 per orders.
--- NOTE | 2023-08-13 12:35 | PM.PNNEP ---
Progress Note: A&P Assessment and Plan (1) Volume overload: Code(s): E87.70 - Fluid overload, unspecified Status: Chronic Assessment and Plan: only mild improvement anasarca noted on presentation (but appears a chronic issue) has had several hospitalizations in the last 4 months regarding this issue felt to be secondary to nephrotic range proteinuria/nephrotic syndrome and diastolic heart failure off amlodipine agree with diuresis as tolerated on albumin, Bumex, and metolazone serum albumin better urine output better (but would expected more of a response with current therapy) unfortunately, creatinine rising....and ONLY 2L negative cumulatively since admission checking 24hour urine creatinine to see if her GFR is actually worse than predicted by the estimate from the blood work I am worried she may need more invasive measures (i.e. dialysis/ultrafiltration) to optimize her volume status.... (2) Stage 3b chronic kidney disease: Code(s): N18.32 - Chronic kidney disease, stage 3b Status: Chronic Assessment and Plan: has fluctuated to extremes over the last few months has been as low as 1.2mg/dl to as high as 3.0mg/dl these fluctuations are related to her issues with volume overload, need for diuretics, suspected renal venous HTN, and recurrent infections/wounds baseline creatinine seems to average out to 1.4 - 1.8mg/dl due to diabetes (with associated complications of retinopathy and neuropathy), hypertension, vascular disease and obesity expect further fluctuations in creatinine with this admission/hospitalization as well (need for aggressive diuresis, infection/bacteremia, wound care...etc) continue diuretics (3) Nephrotic syndrome: Code(s): N04.9 - Nephrotic syndrome with unspecified morphologic changes Status: Chronic Assessment and Plan: noted in the last 4 months: nephrotic range proteinuria (> 11 grams on this admission) significant issues with edema/swelling hypoalbuminemia (serum albumin as low as 1.5mg/dl in the past) presumably secondary to poorly controlled diabetes in association with hypertension complicated by poor nutrition status Adama-I on hold but she will eventually need this restarted see #1 (4) CHF (congestive heart failure): Qualifiers: Heart failure chronicity: acute on chronic Heart failure type: unspecified Qualified Code(s): I50.9 - Heart failure, unspecified Code(s): I50.9 - Heart failure, unspecified Status: Chronic Assessment and Plan: diastolic dysfunction noted by Echo continue diuresis as tolerated (5) Hypertension: Code(s): I10 - Essential (primary) hypertension Status: Chronic Assessment and Plan: poor control at baseline noted to be in the 200s systolic on admission would aim to keep in the 140 - 160s to prevent overcontrol and renal hypoperfusion hold ADAMA-I in the setting of diuresis (but would restart eventually given #3) blood pressure somewhat better (6) Chronic heel ulcer: Qualifiers: Laterality: right Non-pressure ulcer stage: unspecified non-pressure ulcer stage Qualified Code(s): L97.419 - Non-pressure chronic ulcer of right heel and midfoot with unspecified severity Code(s): L97.409 - Non-pressure chronic ulcer of unspecified heel and midfoot with unspecified severity Status: Chronic Assessment and Plan: has been an issues for the last 2 - 3 months was recommended to have right BKA by Vascular Surgery at [facility] (as well as by other surgeons at another hospital) but she refused this intervention was treated with 6 weeks of IV antibiotics already (was being followed by [facility] Infectious Disease) General Surgery following - s/p debridement (7) Diabetes mellitus with chronic kidney disease: Code(s): E11.22 - Type 2 diabetes mellitus with diabetic chronic kidney disease Status: Chronic Asses
--- NOTE | 2023-08-13 12:35 | P.PNNP_ITS ---
Progress Note: A&P Assessment and Plan (1) Volume overload: Code(s): E87.70 - Fluid overload, unspecified Status: Chronic Assessment and Plan: * only mild improvement * anasarca noted on presentation (but appears a chronic issue) * has had several hospitalizations in the last 4 months regarding this issue * felt to be secondary to nephrotic range proteinuria/nephrotic syndrome and diastolic heart failure * off amlodipine * agree with diuresis as tolerated * on albumin, Bumex, and metolazone * serum albumin better * urine output better (but would expected more of a response with current therapy) * unfortunately, creatinine rising....and ONLY 2L negative cumulatively since admission * checking 24hour urine creatinine to see if her GFR is actually worse than predicted by the estimate from the blood work * I am worried she may need more invasive measures (i.e. dialysis/ultrafiltration) to optimize her volume status.... (2) Stage 3b chronic kidney disease: Code(s): N18.32 - Chronic kidney disease, stage 3b Status: Chronic Assessment and Plan: * has fluctuated to extremes over the last few months * has been as low as 1.2mg/dl to as high as 3.0mg/dl * these fluctuations are related to her issues with volume overload, need for diuretics, suspected renal venous HTN, and recurrent infections/wounds * baseline creatinine seems to average out to 1.4 - 1.8mg/dl * due to diabetes (with associated complications of retinopathy and neuropathy), hypertension, vascular disease and obesity * expect further fluctuations in creatinine with this admission/hospitalization as well (need for aggressive diuresis, infection/bacteremia, wound care...etc) * continue diuretics (3) Nephrotic syndrome: Code(s): N04.9 - Nephrotic syndrome with unspecified morphologic changes Status: Chronic Assessment and Plan: * noted in the last 4 months: * nephrotic range proteinuria (> 11 grams on this admission) * significant issues with edema/swelling * hypoalbuminemia (serum albumin as low as 1.5mg/dl in the past) * presumably secondary to poorly controlled diabetes in association with hypertension complicated by poor nutrition status * Adama-I on hold but she will eventually need this restarted * see #1 (4) CHF (congestive heart failure): Qualifiers: Heart failure chronicity: acute on chronic Heart failure type: unspecified Qualified Code(s): I50.9 - Heart failure, unspecified Code(s): I50.9 - Heart failure, unspecified Status: Chronic Assessment and Plan: * diastolic dysfunction noted by Echo * continue diuresis as tolerated (5) Hypertension: Code(s): I10 - Essential (primary) hypertension Status: Chronic Assessment and Plan: * poor control at baseline * noted to be in the 200s systolic on admission * would aim to keep in the 140 - 160s to prevent overcontrol and renal hypoperfusion * hold ADAMA-I in the setting of diuresis (but would restart eventually given #3) * blood pressure somewhat better (6) Chronic heel ulcer: Qualifiers: Laterality: right Non-pressure ulcer stage: unspecified non-pressure ulcer stage Qualified Code(s): L97.419 - Non-pressure chronic ulcer of right heel and midfoot with unspecified severity Code(s): L97.409 - Non-pressure chronic ulcer of unspecified heel and midfoot with unspecified severity Status: Chronic Assessment and Plan: * has been an issues for the last 2 - 3 months * was recommended to have right BK
[2023-08-13 12:45] LABS: Ammonia < 9 umol/L (9-30)
[2023-08-13 12:46] LABS: Alanine Aminotransferase 16 U/L (6-35); Albumin Level 3.4 g/dL (3.5-5.1); Alkaline Phosphatase 89 U/L (38-126); Anion Gap 6 mmol/L (8-16); Aspartate Amino Transferase 24 U/L (14-36); Bilirubin,Total 1.1 mg/dL (0.2-1.3); Blood Urea Nitrogen 26 mg/dL (7-17); Carbon Dioxide 33 mmol/L (22-30); Chloride 104 mmol/L (98-107); Estimated CRCL calculation 41 ml/min; Estimated Glomerular Filt Rate 24; Glucose 120 mg/dL (65-110); Potassium 3.1 mmol/L (3.4-5.0); Sodium 143 mmol/L (137-145)
--- NOTE | 2023-08-13 13:00 | PC.NURSE ---
Gave report to IMU. Patient to be transferred to room [address]
--- NOTE | 2023-08-13 13:14 | PC.NURSE ---
This patient, Gay Canales, was received from [ [phone]] on 08/13/23 at 1314. Patient/family oriented to unit policies and routines
[2023-08-13 13:49] LABS: Procalcitonin 0.2 ng/mL
[2023-08-13 14:35] LABS: Amphetamine Screen Urine Negative (Negative); Barbiturate Screen Urine Negative (Negative); Benzodiazepines Screen Urine Negative (Negative); Cannabinoid Screen Urine Negative (Negative); Cocaine Screen Urine Negative (Negative); Methadone Screen Urine Negative (Negative); Opiate Screen Urine Negative (Negative); Phencyclidine Screen Urine Negative (Negative)
[2023-08-13 15:06] LABS: Acetaminophen < 10 ug/mL (10-30); Salicylate < 1.0 mg/dL (2-20)
--- NOTE | 2023-08-13 15:31 | PM.IMPN ---
Progress Note: A&P Assessment and Plan (1) Hypertension: Code(s): I10 - Essential (primary) hypertension Status: Chronic (2) Diabetes mellitus with chronic kidney disease: Code(s): E11.22 - Type 2 diabetes mellitus with diabetic chronic kidney disease Status: Chronic (3) Nephrotic syndrome: Code(s): N04.9 - Nephrotic syndrome with unspecified morphologic changes Status: Chronic (4) Volume overload: Code(s): E87.70 - Fluid overload, unspecified Status: Chronic (5) Chronic 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: Code(s): Z79.01 - MCFP (current) use of 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 Status: Chronic (6) CHF (congestive heart failure): Qualifiers: Heart failure chronicity: acute on chronic Heart failure type: unspecified Qualified Code(s): I50.9 - Heart failure, unspecified Code(s): I50.9 - Heart failure, unspecified Status: Chronic (7) Altered mental status: Code(s): R41.82 - Altered mental status, unspecified Status: Acute Plan 32F w/ PMH HTN, IDDM w/ stage 3B CKD, nephrotic syndrome, EDD, HFpEF, morbid obesity, chronic AC, chronic ulcers, presented with pain and hypoxia 1) altered mental status - acute change 10/10 overnight. desaturations. appears to have worsening fluid overload in setting of HFpEF and nephrotic syndrome and anasarca. - CT head no non acute. ammonia, aspirin, acetaminophen, utox negative. unclear etiology, although likely metabolic. have not ruled out seizures. consult neurology. she has very poor prognosis at this point - pending blood cultures. appears non toxic. procalcitonin and WBC WNL. 2) acute hypoxic respiratory failure - now up to 7L. CXR 10/10 w/ pulmonary edema. consider CT scan to further identify , however cannot take contrast so may also obtain V/Q scan. - ABG w/o hypercapnia 3) HFpEF - pending echo to visualize EF again - pulmonary edema on CXR and lung exam - BUMEX BID, giving another 3mg dose IV now - cont I/O's, daily weights, fluid restriction 4) CKD stage III w/ nephrotic syndrome - nephrology consulted. - on BUMEX and albumin and metolazone - worsening, baseline is 1.4 - 1.8. now 2.6. complicated by cardiorenal syndrome 5) HTN 6) infected right heel ulcer - s/p debridement 08/12 - pending blood cultures - cont cefepime and vancomycin 7) IDDM - cont accuchecks with sliding scale patient is very ill with a poor prognosis. she is chronically morbid and DNR. she has worsening CKD and nephrotic syndrome, worsening CHF and hypoxia, infected right heel ulcer and now with concerning AMS and unresponsiveness. beginning to max out her therapies and she may come to a state of treatment being futile. consulted neurology to see if they have any other recommendations, consulting with nephrology as well. attempting to contact family to update them of this. DNR lovenox saline lock IV NPO Subjective Date/time seen: 08/13/23 15:31 Interval history: overnight, required higher oxygen requirement after desaturation. up to 10L. now back to 7L. she has waxed and waned, now unresponsive, but protecting airway. Review of Systems Review of Systems: unable to obtain Exam Const: Other: unresponive to pain and verbal stimuli Resp: Effort & Inspection: normal respiratory effort Auscultation: crackles Cardio: Rate: regular rate Rhythm: regular rhythm GI: GI Palp: Yes Soft to palpation and No Tenderness to palpation present (GI) Extrem: Other: generalized edema Objective Data Vital Signs Vital Signs: Vital Signs - 24 hr 08/12/23 16:00 08/12/23 16:00 08/12/23 21:08 Temperature 96.8 F L 99.3 F Pulse Rate 81 81 80 Respiratory Rate 21 H 20 Blood Pressure 148/77 H 162/86 H Pulse Oximetry 90 91 Oxygen Delivery Oxygen Flow Rate Fraction of Inspired Oxygen 08/12/23 22:48 08/12/23 20:00 08/12/23 23:21 Temperature 97.9 F 99.7 F H Pulse Rate 85 83 Respiratory Rate 18 20 B
[2023-08-13] MEDS: BUMETANIDE INJ 1 MG/4 ML VIAL IV PUSH (15:51)
[2023-08-13] MEDS: POTASSIUM CHLORIDE INJ 40 MEQ in SODIUM CHLORIDE 0.9% IV 500 ML 130 MEQ IVPB (15:55)
[2023-08-13 17:37] LABS: Glucose Point of Care 152 mg/dl (65-105)
[2023-08-13 20:32] LABS: Glucose Point of Care 130 mg/dl (65-105)
[2023-08-14] VITALS (17 sets, daily range): BP systolic 150–181; BP diastolic 72–93; PULSE 78–89; RESP 18–26; TEMP 36.1–37.3; O2SAT 87–99
[2023-08-14] MEDS: hydrALAZINE HCL 20 MG/ML VIAL 10 MG IV PUSH ×2 (00:37→05:40)
--- NOTE | 2023-08-14 01:56 | PC.NURSE ---
Patient refusing oxygen advancement despite desaturation. RN attempted to make tpatient in order to get her to comply.
--- NOTE | 2023-08-14 02:05 | PC.NURSE ---
Patient refusing increase in oxygen despite regular desaturation. RN explained related increase of risks multiple times. Patient continued to refuse titration. Patient is AOx4. RN attempted to notify MD Schwarz but was not able to reach her. RN will try again later.
[2023-08-14 05:19] LABS: Basophils Percent Auto 0.4 % (0.2-1.2); Eosinophils Absolute Auto 0.7 K/mm3 (0-0.3); Eosinophils Percent Auto 8.6 % (0-4.4); Immature Granulocyte Absolute 0.05 K/mm3 (0.00-0.031); Immature Granulocyte Percent A 0.6 % (0-0.5); Lymphocytes Absolute Auto 1.43 K/mm3 (0.9-3.2); Mean Corpuscular HGB Conc 31.8 g/dl (32-36); Mean Corpuscular Hemoglobin 29.2 pg (26-34); Mean Corpuscular Volume 91.7 fl (80-100); Mean Platelet Volume 10.6 fl (7.4-10.4); Monocytes Absolute Auto 0.8 K/mm3 (0.1-0.6); Monocytes Percent Auto 8.9 % (2.6-8.5); Neutrophils Absolute Auto 5.4 K/mm3 (1.3-6.7); Neutrophils Percent Auto 64.5 % (45.5-73.1); Nucleated Red Blood Cells Perc 0.5 % (0.0-0.2); Platelet Count Result 269 k/mm3 (150-375); Red Cell Distribution Width 14.9 % (11.5-14.5); White Blood Count 8.4 K/mm3 (4.5-10.0)
[2023-08-14 05:31] LABS: INR 1.4; Prothrombin Time 18.3 Seconds (11.1-14.7)
[2023-08-14 05:39] LABS: Alanine Aminotransferase 16 U/L (6-35); Albumin Level 3.2 g/dL (3.5-5.1); Alkaline Phosphatase 90 U/L (38-126); Anion Gap 4 mmol/L (8-16); Aspartate Amino Transferase 24 U/L (14-36); Bilirubin,Total 0.8 mg/dL (0.2-1.3); Blood Urea Nitrogen 27 mg/dL (7-17); Calcium 8.8 mg/dL (8.4-10.2); Carbon Dioxide 36 mmol/L (22-30); Chloride 102 mmol/L (98-107); Estimated CRCL calculation 37 ml/min; Estimated Glomerular Filt Rate 23; Glucose 129 mg/dL (65-110); Magnesium 1.9 mg/dL (1.6-2.3); Phosphorus 3.7 mg/dL (2.5-4.5); Potassium 3.2 mmol/L (3.4-5.0); Sodium 142 mmol/L (137-145)
[2023-08-14 05:51] LABS: Vancomycin Random 21.9 ug/mL (10-20)
[2023-08-14 06:04] LABS: Procalcitonin 0.2 ng/mL
[2023-08-14 06:17] LABS: Hepatitis B Surface Antigen Negative (Negative)
[2023-08-14 06:34] LABS: Hepatitis B Surface Anti Res Positive
[2023-08-14 08:45] LABS: Glucose Point of Care 125 mg/dl (65-105)
--- NOTE | 2023-08-14 10:04 | PM.PNGS ---
Progress Note: A&P Assessment and Plan (1) Stage 3b chronic kidney disease: Code(s): N18.32 - Chronic kidney disease, stage 3b Status: Chronic Assessment and Plan: Nephrology consulted our service for placement of a tunnelled dialysis catheter as they are wanting to move forward with dialysis for her volume overload. Description of the procedure, risks, benefits, expected outcomes, and expected recovery were discussed with the patient in detail. She agrees to proceed. Will make her NPO after midnight and Dr. Almaraz will proceed with placement of tunnelled dialysis catheter tomorrow in the OR. (2) Volume overload: Code(s): E87.70 - Fluid overload, unspecified Status: Chronic (3) Chronic heel ulcer: Qualifiers: Laterality: right Non-pressure ulcer stage: unspecified non-pressure ulcer stage Qualified Code(s): L97.419 - Non-pressure chronic ulcer of right heel and midfoot with unspecified severity Code(s): L97.409 - Non-pressure chronic ulcer of unspecified heel and midfoot with unspecified severity Status: Chronic Assessment and Plan: Necrotic right heel ulcer s/p excisional debridement at the bedside on 08/12. Wound care nurses evaluated her yesterday. Continue with local wound care with Santyl and iodoform packing. Elevate heels off bed/waffle boots. (4) Diabetes mellitus with chronic kidney disease: Code(s): E11.22 - Type 2 diabetes mellitus with diabetic chronic kidney disease Status: Chronic (5) Chronic 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: Code(s): Z79.01 - correction (current) use of 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 Status: Chronic Assessment and Plan: Currently on hold (6) Nephrotic syndrome: Code(s): N04.9 - Nephrotic syndrome with unspecified morphologic changes Status: Chronic (7) CHF (congestive heart failure): Qualifiers: Heart failure chronicity: acute on chronic Heart failure type: unspecified Qualified Code(s): I50.9 - Heart failure, unspecified Code(s): I50.9 - Heart failure, unspecified Status: Chronic Plan I have discussed the patient's case and plan of care with Dr. Almaraz. Subjective Subjective Date/Time Seen: 08/14/23 10:04 Patient reports: no new complaints and afebrile Interval history: Patient seen again today. Our service has been reconsulted for placement of a tunneled dialysis catheter by Nephrology. She continues to have issues with fluid overload despite diuresis. She had a rapid response called yesterday due to hypoxia and was moved to IMU. She is currently on 8 L high-flow nasal cannula. She is less alert than when I saw her last. She does open eyes and answer a few questions, but quickly dozes off. Exam Const: General: lethargic, tired appearing and edematous Orientation/consciousness: oriented to person and oriented to time Neck: Neck: normal visual inspection Chest: Chest palpation & inspection: normal inspection of the chest Resp: Effort & Inspection: labored (mild) Auscultation: crackles diffuse Extrem: Left lower extremity: hip/thigh (Left above knee amputation) Other: Right foot dressing clean, dry, and intact. Psych: Insight: Fair insight present (Psych) Judgement: Fair judgement present (Psych) Objective Data Vital Signs Vital Signs: Vital Signs - 24 hr 08/13/23 12:03 08/13/23 12:39 08/13/23 12:55 Temperature 97.8 F Pulse Rate 79 79 Respiratory Rate Blood Pressure 176/89 H Pulse Oximetry 94 Oxygen Delivery High Flow Nasal Cannula Oxygen Flow Rate 7 08/13/23 13:19 08/13/23 13:15 08/13/23 12:07 Temperature Pulse Rate 80 Respiratory Rate 20 22 H Blood Pressure 171/87 H Pulse Oximetry 97 91 97 Oxygen Delivery High Flow Nasal Cannula Nasal Cannula Oxygen Flow Rate 8 7 08/13/23 13:57 08/13/23 16:19 08/13/23 16:00 Temperature 98.4 F Pulse Rate 81 Respiratory Rate 22 H Blood Pressure 167/76 H Pulse Oximetry 92 95
[2023-08-14] MEDS: CEFEPIME 2 GM/NS 50 ML 2 GM/50 ML BAG IVPB ×2 (10:06→21:08)
[2023-08-14] MEDS: FERROUS SULFATE 325 MG TABLET DR BY MOUTH (10:07)
[2023-08-14] MEDS: POTASSIUM CHLORIDE 20 MEQ ER TABLET PO (10:08)
[2023-08-14] MEDS: ASCORBIC ACID 500 MG TABLET PO ×2 (10:08→17:45)
[2023-08-14] MEDS: carvediloL 12.5 MG TABLET PO ×2 (10:08→21:09)
[2023-08-14] MEDS: MULTIVITAMINS THERAPEUTIC TAB (*BKC) 1 TABLET PO (10:08)
[2023-08-14] MEDS: ALBUMIN HUMAN 25% 25 GM/100 ML 100 ML IVPB ×2 (10:09→17:45)
[2023-08-14] MEDS: EUCERIN CREAM 120 GM JAR 1 APPLIC TOPICAL (11:58)
[2023-08-14] MEDS: COLLAGENASE OINT 30 GM TUBE 1 APPLIC TOPICAL (11:58)
[2023-08-14] MEDS: BUMETANIDE INJ 1 MG/4 ML VIAL 3 MG IV PUSH ×2 (12:05→19:46)
[2023-08-14] MEDS: metOLazone 5 MG TABLET 10 MG PO (12:06)
[2023-08-14 12:13] LABS: Glucose Point of Care 152 mg/dl (65-105)
--- NOTE | 2023-08-14 12:35 | PM.PNNEP ---
Progress Note: A&P Assessment and Plan (1) Volume overload: Code(s): E87.70 - Fluid overload, unspecified Status: Chronic Assessment and Plan: only mild improvement anasarca noted on presentation (but appears a chronic issue) has had several hospitalizations in the last 4 months regarding this issue felt to be secondary to nephrotic range proteinuria/nephrotic syndrome and diastolic heart failure off amlodipine agree with diuresis as tolerated on albumin, Bumex, and metolazone serum albumin better urine output better (but would expected more of a response with current therapy) unfortunately, creatinine rising....and ONLY 2L negative cumulatively since admission checking 24hour urine creatinine to see if her GFR is actually worse than predicted by the estimate from the blood work plan HD/ultrafiltration one HD catheter placed (2) Stage 3b chronic kidney disease: Code(s): N18.32 - Chronic kidney disease, stage 3b Status: Chronic Assessment and Plan: has fluctuated to extremes over the last few months has been as low as 1.2mg/dl to as high as 3.0mg/dl these fluctuations are related to her issues with volume overload, need for diuretics, suspected renal venous HTN, and recurrent infections/wounds baseline creatinine seems to average out to 1.4 - 1.8mg/dl due to diabetes (with associated complications of retinopathy and neuropathy), hypertension, vascular disease and obesity expect further fluctuations in creatinine with this admission/hospitalization as well (need for aggressive diuresis, infection/bacteremia, wound care...etc) continue diuretics (3) Nephrotic syndrome: Code(s): N04.9 - Nephrotic syndrome with unspecified morphologic changes Status: Chronic Assessment and Plan: noted in the last 4 months: nephrotic range proteinuria (> 11 grams on this admission) significant issues with edema/swelling hypoalbuminemia (serum albumin as low as 1.5mg/dl in the past) presumably secondary to poorly controlled diabetes in association with hypertension complicated by poor nutrition status Adama-I on hold but she will eventually need this restarted see #1 (4) CHF (congestive heart failure): Qualifiers: Heart failure chronicity: acute on chronic Heart failure type: unspecified Qualified Code(s): I50.9 - Heart failure, unspecified Code(s): I50.9 - Heart failure, unspecified Status: Chronic Assessment and Plan: diastolic dysfunction noted by Echo continue diuresis as tolerated (5) Hypertension: Code(s): I10 - Essential (primary) hypertension Status: Chronic Assessment and Plan: poor control at baseline noted to be in the 200s systolic on admission would aim to keep in the 140 - 160s to prevent overcontrol and renal hypoperfusion hold ADAMA-I in the setting of diuresis (but would restart eventually given #3) blood pressure somewhat better (6) Chronic heel ulcer: Qualifiers: Laterality: right Non-pressure ulcer stage: unspecified non-pressure ulcer stage Qualified Code(s): L97.419 - Non-pressure chronic ulcer of right heel and midfoot with unspecified severity Code(s): L97.409 - Non-pressure chronic ulcer of unspecified heel and midfoot with unspecified severity Status: Chronic Assessment and Plan: has been an issues for the last 2 - 3 months was recommended to have right BKA by Vascular Surgery at [facility] (as well as by other surgeons at another hospital) but she refused this intervention was treated with 6 weeks of IV antibiotics already (was being followed by [facility] Infectious Disease) General Surgery following - s/p debridement (7) Diabetes mellitus with chronic kidney disease: Code(s): E11.22 - Type 2 diabetes mellitus with diabetic chronic kidney disease Status: Chronic Assessment and Plan: noted poor control with associated complications
--- NOTE | 2023-08-14 12:35 | P.PNNP_ITS ---
Progress Note: A&P Assessment and Plan (1) Volume overload: Code(s): E87.70 - Fluid overload, unspecified Status: Chronic Assessment and Plan: * only mild improvement * anasarca noted on presentation (but appears a chronic issue) * has had several hospitalizations in the last 4 months regarding this issue * felt to be secondary to nephrotic range proteinuria/nephrotic syndrome and diastolic heart failure * off amlodipine * agree with diuresis as tolerated * on albumin, Bumex, and metolazone * serum albumin better * urine output better (but would expected more of a response with current therapy) * unfortunately, creatinine rising....and ONLY 2L negative cumulatively since admission * checking 24hour urine creatinine to see if her GFR is actually worse than predicted by the estimate from the blood work * plan HD/ultrafiltration one HD catheter placed (2) Stage 3b chronic kidney disease: Code(s): N18.32 - Chronic kidney disease, stage 3b Status: Chronic Assessment and Plan: * has fluctuated to extremes over the last few months * has been as low as 1.2mg/dl to as high as 3.0mg/dl * these fluctuations are related to her issues with volume overload, need for diuretics, suspected renal venous HTN, and recurrent infections/wounds * baseline creatinine seems to average out to 1.4 - 1.8mg/dl * due to diabetes (with associated complications of retinopathy and neuropathy), hypertension, vascular disease and obesity * expect further fluctuations in creatinine with this admission/hospitalization as well (need for aggressive diuresis, infection/bacteremia, wound care...etc) * continue diuretics (3) Nephrotic syndrome: Code(s): N04.9 - Nephrotic syndrome with unspecified morphologic changes Status: Chronic Assessment and Plan: * noted in the last 4 months: * nephrotic range proteinuria (> 11 grams on this admission) * significant issues with edema/swelling * hypoalbuminemia (serum albumin as low as 1.5mg/dl in the past) * presumably secondary to poorly controlled diabetes in association with hyper tension complicated by poor nutrition status * Adama-I on hold but she will eventually need this restarted * see #1 (4) CHF (congestive heart failure): Qualifiers: Heart failure chronicity: acute on chronic Heart failure type: unspecified Qualified Code(s): I50.9 - Heart failure, unspecified Code(s): I50.9 - Heart failure, unspecified Status: Chronic Assessment and Plan: * diastolic dysfunction noted by Echo * continue diuresis as tolerated (5) Hypertension: Code(s): I10 - Essential (primary) hypertension Status: Chronic Assessment and Plan: * poor control at baseline * noted to be in the 200s systolic on admission * would aim to keep in the 140 - 160s to prevent overcontrol and renal hypoperfusion * hold ADAMA-I in the setting of diuresis (but would restart eventually given #3) * blood pressure somewhat better (6) Chronic heel ulcer: Qualifiers: Laterality: right Non-pressure ulcer stage: unspecified non-pressure ulcer stage Qualified Code(s): L97.419 - Non-pressure chronic ulcer of right heel and midfoot with unspecified severity Code(s): L97.409 - Non-pressure chronic ulcer of unspecified heel and midfoot with unspecified severity Status: Chronic Assessment and Plan: * has been an issues for the last 2 - 3 months * was recommended to have right BKA by Vascular Surgery at [facility] (as well as by other surgeons at [facility], later [facility]
--- NOTE | 2023-08-14 13:41 | PM.IMPN ---
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 desaturations. appears to have worsening fluid overload in setting of HFpEF and nephrotic syndrome and anasarca. - CT head non acute. ammonia, aspirin, acetaminophen, utox negative. unclear etiology, although likely metabolic. have not ruled out seizures. consulted neurology on 08/13, awaiting recommendations - pending blood cultures. appears non toxic. procalcitonin and WBC WNL. 2) acute hypoxic respiratory failure - now up to 6-7L. CXR 08/12 w/ pulmonary edema. consider CT scan to further identify. - CXR w/ edema, pneumonia underlying? on cefepime and vancomycin - ABG w/o hypercapnia 3) HFpEF - pending echo to visualize EF again - pulmonary edema on CXR and lung exam - BUMEX BID. good UOP on 08/13 but lung still wet. planning for dialysis - cont I/O's, daily weights, fluid restriction 4) CKD stage III w/ nephrotic syndrome - nephrology consulted. worsening, plan to insert temp dialysis cath and perform dialysis - on BUMEX and albumin and metolazone - worsening, baseline is 1.4 - 1.8. now 2.6. 5) HTN 6) infected right heel ulcer - s/p debridement 08/12 - pending blood cultures - cont cefepime and vancomycin 7) IDDM - cont accuchecks with sliding scale she continues to have poor overall prognosis. goals to discharge back to SNF are stabilization of her kidney function, possibly discharged on dialysis. abx for possible pneumonia and infected foot ulcer. may need to leave on oxygen for CHF, nephrotic syndrome with anasarca and pulmonary edema. Full Code lovenox saline lock IV Subjective Date/time seen: 08/14/23 13:41 Interval history: NAOE. pt reports no SOB, she feels the same as yesterday. Review of Systems Cardiovascular: Cardiovascular: Denies chest pain and Denies dyspnea Respiratory: Respiratory: Denies cough and Denies dyspnea Gastrointestinal: Gastrointestinal: Denies abdominal pain and Denies vomiting Exam Const: General: no acute distress, alert and Physically active Other: morbidly obese, anasarca Resp: Effort & Inspection: normal respiratory effort Auscultation: crackles Cardio: Rate: regular rate Rhythm: regular rhythm Heart sounds: S1 normal heart sound present and S2 normal heart sound present GI: Inspection: non-distended GI Palp: No abdominal tenderness Auscultation: normal bowel sounds Extrem: General: edema Objective Data Vital Signs Vital Signs: Vital Signs - 24 hr 08/13/23 13:57 08/13/23 16:19 08/13/23 16:00 Temperature 98.4 F Pulse Rate 81 Respiratory Rate 22 H Blood Pressure 167/76 H Pulse Oximetry 92 95 95 Oxygen Deliv
[2023-08-14 17:34] LABS: Glucose Point of Care 139 mg/dl (65-105)
[2023-08-14 19:56] LABS: Total Volume 24 Hour Urine 3600 ml
[2023-08-14 20:04] LABS: Creatinine 24 Hour Urine 0.5 gm/24 (0.8-1.8); Creatinine Urine 14.7 mg/dL
[2023-08-14 20:15] LABS: Glucose Point of Care 198 mg/dl (65-105)
[2023-08-14] MEDS: WATER FOR IRRIGATION, STERILE 1,000 ML BOTTLE 1000 ML (23:56)
[2023-08-15] VITALS (31 sets, daily range): BP systolic 116–188; BP diastolic 71–96; PULSE 76–90; RESP 14–22; TEMP 0–37; O2SAT 91–98; BMI 46.0
[2023-08-15 04:57] LABS: Basophils Percent Auto 0.4 % (0.2-1.2); Eosinophils Absolute Auto 0.8 K/mm3 (0-0.3); Eosinophils Percent Auto 9.6 % (0-4.4); Hematocrit 22.9 % (37.0-47.0); Immature Granulocyte Absolute 0.05 K/mm3 (0.00-0.031); Immature Granulocyte Percent A 0.6 % (0-0.5); Lymphocytes Absolute Auto 1.53 K/mm3 (0.9-3.2); Lymphocytes Percent Auto 18.2 % (18.3-44.2); Mean Corpuscular HGB Conc 30.6 g/dl (32-36); Mean Corpuscular Hemoglobin 29.2 pg (26-34); Mean Corpuscular Volume 95.4 fl (80-100); Mean Platelet Volume 11.2 fl (7.4-10.4); Monocytes Absolute Auto 0.9 K/mm3 (0.1-0.6); Monocytes Percent Auto 10.1 % (2.6-8.5); Neutrophils Absolute Auto 5.2 K/mm3 (1.3-6.7); Neutrophils Percent Auto 61.1 % (45.5-73.1); Nucleated Red Blood Cells Absolute Auto 0.1 K/mm3 (0.0-0.012); Nucleated Red Blood Cells Perc 0.6 % (0.0-0.2); Platelet Count Result 259 k/mm3 (150-375); Red Cell Distribution Width 15.1 % (11.5-14.5); White Blood Count 8.4 K/mm3 (4.5-10.0)
[2023-08-15 05:02] LABS: INR 1.4; Prothrombin Time 17.7 Seconds (11.1-14.7)
[2023-08-15 05:05] LABS: Alanine Aminotransferase 20 U/L (6-35); Albumin Level 3.3 g/dL (3.5-5.1); Alkaline Phosphatase 123 U/L (38-126); Anion Gap 4 mmol/L (8-16); Aspartate Amino Transferase 36 U/L (14-36); Bilirubin,Total 0.7 mg/dL (0.2-1.3); Blood Urea Nitrogen 29 mg/dL (7-17); Calcium 8.6 mg/dL (8.4-10.2); Carbon Dioxide 37 mmol/L (22-30); Chloride 102 mmol/L (98-107); Estimated CRCL calculation 35 ml/min; Estimated Glomerular Filt Rate 21; Glucose 190 mg/dL (65-110); Magnesium 1.8 mg/dL (1.6-2.3); Phosphorus 3.7 mg/dL (2.5-4.5); Potassium 3.3 mmol/L (3.4-5.0); Sodium 143 mmol/L (137-145)
[2023-08-15 05:07] LABS: Vancomycin Trough 18.5 ug/mL (10.0-20.0)
[2023-08-15 08:10] LABS: Glucose Point of Care 154 mg/dl (65-105)
--- NOTE | 2023-08-15 09:03 | P.PNNP_ITS ---
Progress Note: A&P Assessment and Plan (1) Volume overload: Code(s): E87.70 - Fluid overload, unspecified Status: Chronic Assessment and Plan: * only mild improvement since admission * anasarca noted on presentation (but appears a chronic issue) * has had several hospitalizations in the last 4 months regarding this issue * felt to be secondary to nephrotic range proteinuria/nephrotic syndrome and diastolic heart failure * off amlodipine * continue diuresis as tolerated * on albumin, Bumex, and metolazone * serum albumin better * urine output better (but would expected more of a response with current therapy) * unfortunately, creatinine rising....and ONLY 6L negative cumulatively since admission * checking 24hour urine creatinine to see if her GFR is actually worse than predicted by the estimate from the blood work * plan HD/ultrafiltration once HD catheter placed * given rising creatinine and contraction alkalosis, hold diuresis will getting DUF (2) Stage 3b chronic kidney disease: Code(s): N18.32 - Chronic kidney disease, stage 3b Status: Chronic Assessment and Plan: * has fluctuated to extremes over the last few months * has been as low as 1.2mg/dl to as high as 3.0mg/dl * these fluctuations are related to her issues with volume overload, need for diuretics, suspected renal venous HTN, and recurrent infections/wounds * baseline creatinine seems to average out to 1.4 - 1.8mg/dl * due to diabetes (with associated complications of retinopathy and neuropathy), hypertension, vascular disease and obesity * expect further fluctuations in creatinine with this admission/hospitalization as well (need for aggressive diuresis, infection/bacteremia, wound care...etc) * continue diuretics for now but hold once DUF initiated (3) Nephrotic syndrome: Code(s): N04.9 - Nephrotic syndrome with unspecified morphologic changes Status: Chronic Assessment and Plan: * noted in the last 4 months: * nephrotic range proteinuria (> 11 grams on this admission) * significant issues with edema/swelling * hypoalbuminemia (serum albumin as low as 1.5mg/dl in the past) * presumably secondary to poorly controlled diabetes in association with hypertension complicated by poor nutrition status * Adaam-I on hold but she will eventually need this restarted * see #1 (4) CHF (congestive heart failure): Qualifiers: Heart failure chronicity: acute on chronic Heart failure type: unspecified Qualified Code(s): I50.9 - Heart failure, unspecified Code(s): I50.9 - Heart failure, unspecified Status: Chronic Assessment and Plan: * diastolic dysfunction noted by Echo * continue diuresis/ultrafiltration as tolerated (5) Hypertension: Code(s): I10 - Essential (primary) hypertension Status: Chronic Assessment and Plan: * poor control at baseline * noted to be in the 200s systolic on admission * would aim to keep in the 140 - 160s to prevent overcontrol and renal hypoperfusion * hold ADAMA-I in the setting of diuresis (but would restart eventually given #3) * blood pressure somewhat better (6) Chronic heel ulcer: Qualifiers: Laterality: right Non-pressure ulcer stage: unspecified non-pressure ulcer stage Qualified Code(s): L97.419 - Non-pressure chronic ulcer of right heel and midfoot with unspecified severity Code(s): L97.409 - Non-pressure chronic ulcer of unspecified heel and midfoot with unspecified severity Status: Chronic Assessment and Plan
--- NOTE | 2023-08-15 09:03 | PM.PNNEP ---
Progress Note: A&P Assessment and Plan (1) Volume overload: Code(s): E87.70 - Fluid overload, unspecified Status: Chronic Assessment and Plan: only mild improvement since admission anasarca noted on presentation (but appears a chronic issue) has had several hospitalizations in the last 4 months regarding this issue felt to be secondary to nephrotic range proteinuria/nephrotic syndrome and diastolic heart failure off amlodipine continue diuresis as tolerated on albumin, Bumex, and metolazone serum albumin better urine output better (but would expected more of a response with current therapy) unfortunately, creatinine rising....and ONLY 6L negative cumulatively since admission checking 24hour urine creatinine to see if her GFR is actually worse than predicted by the estimate from the blood work plan HD/ultrafiltration once HD catheter placed given rising creatinine and contraction alkalosis, hold diuresis will getting DUF (2) Stage 3b chronic kidney disease: Code(s): N18.32 - Chronic kidney disease, stage 3b Status: Chronic Assessment and Plan: has fluctuated to extremes over the last few months has been as low as 1.2mg/dl to as high as 3.0mg/dl these fluctuations are related to her issues with volume overload, need for diuretics, suspected renal venous HTN, and recurrent infections/wounds baseline creatinine seems to average out to 1.4 - 1.8mg/dl due to diabetes (with associated complications of retinopathy and neuropathy), hypertension, vascular disease and obesity expect further fluctuations in creatinine with this admission/hospitalization as well (need for aggressive diuresis, infection/bacteremia, wound care...etc) continue diuretics for now but hold once DUF initiated (3) Nephrotic syndrome: Code(s): N04.9 - Nephrotic syndrome with unspecified morphologic changes Status: Chronic Assessment and Plan: noted in the last 4 months: nephrotic range proteinuria (> 11 grams on this admission) significant issues with edema/swelling hypoalbuminemia (serum albumin as low as 1.5mg/dl in the past) presumably secondary to poorly controlled diabetes in association with hypertension complicated by poor nutrition status Adama-I on hold but she will eventually need this restarted see #1 (4) CHF (congestive heart failure): Qualifiers: Heart failure chronicity: acute on chronic Heart failure type: unspecified Qualified Code(s): I50.9 - Heart failure, unspecified Code(s): I50.9 - Heart failure, unspecified Status: Chronic Assessment and Plan: diastolic dysfunction noted by Echo continue diuresis/ultrafiltration as tolerated (5) Hypertension: Code(s): I10 - Essential (primary) hypertension Status: Chronic Assessment and Plan: poor control at baseline noted to be in the 200s systolic on admission would aim to keep in the 140 - 160s to prevent overcontrol and renal hypoperfusion hold ADAMA-I in the setting of diuresis (but would restart eventually given #3) blood pressure somewhat better (6) Chronic heel ulcer: Qualifiers: Laterality: right Non-pressure ulcer stage: unspecified non-pressure ulcer stage Qualified Code(s): L97.419 - Non-pressure chronic ulcer of right heel and midfoot with unspecified severity Code(s): L97.409 - Non-pressure chronic ulcer of unspecified heel and midfoot with unspecified severity Status: Chronic Assessment and Plan: has been an issues for the last 2 - 3 months was recommended to have right BKA by Vascular Surgery at [facility] (as well as by other surgeons at another hospital) but she refused this intervention was treated with 6 weeks of IV antibiotics already (was being followed by [facility] Infectious Disease) General Surgery following - s/p debridement (7) Diabetes mellitus with chronic kidney disease: Code(s): E11.22 - Type 2 diabet
[2023-08-15] MEDS: ALBUMIN HUMAN 25% 25 GM/100 ML 100 ML IVPB (09:15)
[2023-08-15] MEDS: COLLAGENASE OINT 30 GM TUBE 1 APPLIC TOPICAL (09:18)
[2023-08-15] MEDS: EUCERIN CREAM 120 GM JAR 1 APPLIC TOPICAL (09:18)
[2023-08-15] MEDS: carvediloL 12.5 MG TABLET PO ×2 (09:32→21:58)
[2023-08-15] MEDS: BUMETANIDE INJ 1 MG/4 ML VIAL 3 MG IV PUSH (11:00)
[2023-08-15] MEDS: metOLazone 5 MG TABLET 10 MG PO (11:00)
--- NOTE | 2023-08-15 11:39 | WPDHPUPDATE1 ---
History and Physical Update Update Date/Time: 08/15/23 11:39 History and Physical has been reviewed, including an updated exam of the patient. There are NO changes in the patient's condition. Risks, benefits, and alternatives have been discussed and questions answered. Patient agrees to proceed with procedure.
[2023-08-15 11:44] LABS: Glucose Point of Care 149 mg/dl (65-105)
--- NOTE | 2023-08-15 13:25 | WPDANESEPPF ---
Anes - Initial Pre Proc Eval Procedure: Operation Date: 08/08/23 09:15 Proposed Procedures p Debridement Right Ankle Ulcer - Tyrel Beltre MD Operation Date: 08/15/23 12:30 Proposed Procedures p Insertion Tunneled Dialysis Catheter - Dorota Almaraz MD Date/Time: 08/15/23 13:25 Surgeon: Nadia Coreas DO Pre Op Diagnosis: Pleural Effusion Patient Data Age: 32 Gender: F Height: 1.7 m Weight: 133.4 kg Last Vital Signs Temp 36.6 C 08/15/23 11:39 Pulse 79 08/15/23 11:39 Resp 14 08/15/23 11:39 BP 163/80 H 08/15/23 11:39 Pulse Ox 92 08/15/23 11:39 O2 Del Method High Flow Nasal Cannula 08/15/23 11:39 O2 Flow Rate 5 08/15/23 11:39 FiO2 40 08/13/23 06:51 Allergies Allergy/AdvReac Type Severity Reaction Status Date / Time No Known Allergies Allergy Verified 08/15/23 11:50 Home Medications Medication Instructions Recorded Confirmed Type amlodipine 10 mg tablet 10 mg PO DAILY 08/04/23 08/05/23 History carvedilol 12.5 mg tablet 12.5 mg PO BID 08/04/23 08/05/23 History furosemide 40 mg tablet 40 mg PO QMWF 08/04/23 08/05/23 History insulin lispro 100 unit/mL See Rx Instructions .Route .COMPLEX 08/04/23 08/05/23 History subcutaneous solution lisinopril 10 mg tablet 10 mg PO DAILY 08/04/23 08/05/23 History nystatin 100,000 unit/gram topical 1 applic topical PRN 08/04/23 08/05/23 History powder potassium chloride 20 mEq 20 meq PO DAILY 08/04/23 08/05/23 History tablet,extended release(part/cryst) warfarin 4 mg tablet 4 mg PO DAILY 08/04/23 08/05/23 History ascorbic acid (vitamin C) 500 mg 500 mg PO BID 08/05/23 08/05/23 History tablet collagenase clostridium histo. 250 1 applic topical DAILY 08/05/23 08/05/23 History unit/gram topical ointment (Santyl) ferrous sulfate 325 mg (65 mg 325 mg PO DAILY 08/05/23 08/05/23 History iron) tablet loperamide 2 mg capsule See Rx Instructions .Route .COMPLEX 08/05/23 08/05/23 History melatonin 3 mg PO HS 08/05/23 08/05/23 History multivitamin 1 tablet PO DAILY 08/05/23 08/05/23 History ondansetron 4 mg disintegrating 4 mg PO Q8H 08/05/23 08/05/23 History tablet Laboratory Tests 08/13/23 08/14/23 08/14/23 20:04 14:00 17:07 WBC RBC Hgb Hct MCV MCH MCHC RDW Plt Count MPV Immature Gran % (Auto) Neut % (Auto) Lymph % (Auto) Mckinley % (Auto) Eos % (Auto) Baso % (Auto) Lymph # (Auto) Mckinley # (Auto) Eos # (Auto) Baso # (Auto) Abs Immat Gran (auto) Absolute Neuts (auto) Absolute Nucleated RBC Nucleated RBC % PT INR Sodium Potassium Chloride Carbon Dioxide Anion Gap BUN Creatinine Estim Creat Clear Calc Estimated GFR Glucose POC Capillary Glucose 139 H mg/dl (65-105) Calcium Phosphorus Magnesium Total Bilirubin AST ALT Alkaline Phosphatase Total Protein Albumin Ur 24 Hour Volume 3600 ml Urine Creatinine 14.7 mg/dL Ur Creatinine 24 Hour 0.5 L gm/24 (0.8-1.8) Nasal RSV Type A (PCR) Cancelled Nasal RSV Type B (PCR) Cancelled Vancomycin Trough Chlamy pneumoniae PCR Cancelled Adenovirus DNA Cancelled Human Bocavirus (DENA) Cancelled Coronavirus Type OC43 Cancelled Coronavirus Type HKU1 Cancelled Coronavirus Type 229E Cancelled Coronavirus Type NL63 Cancelled Human Metapneumovir PCR Cancelled Influenz
[2023-08-15] MEDS: ceFAZolin 3 GM/D5W 100 ML 100 ML IVPB (13:58)
[2023-08-15] MEDS: LIDO 1%/EPINEPHRINE 1:100,000 50 ML VIAL 30 ML INFILTRATE (14:37)
[2023-08-15] MEDS: HEPARIN SODIUM, PORCINE 10,000 UNITS/10 ML VIAL 4000 UNITS IV PUSH (14:41)
--- NOTE | 2023-08-15 14:55 | W.PM.PROC2 ---
Procedure Note - Detailed Date of Procedure 08/15/23 Pre-op Diagnosis Acute renal failure Post-op Diagnosis Same Procedure Performed placement of 24 cm tunneled hemodialysis catheter in right internal jugular vein under both ultrasound and fluroscopic guidance Surgeon Dorota Almaraz MD Anesthesia MAC and Local Indications 32 y/o F currently c worsening renal failure requiring emergent hemodialysis Findings 1st stick RIJ Description of Procedure Patient was taken to the operating room and placed in the supine position. After adequate induction of MAC anesthesia, the patient was prepped and draped in normal sterile fashion. A time-out was then done to verify the patient's identity as well as the procedure being performed. I began by using the SonoSite and locating the right internal jugular vein. Once this was done, I localized the overlying skin. I then made a small incision in the skin. I then gained access into the right internal jugular vein with an 18 gauge needle. At this point, I threaded the guidewire into the right internal jugular vein. Placement of the guidewire was confirmed by both ultrasound and fluoroscopic guidance. I then went ahead and measured the 24 cm tunneled dialysis catheter to our stick site in the right neck. I then localized the tract going from the right chest to the right neck. I then made a small incision in the right chest and tunneled the catheter to the right neck. I then serially dilated the right internal jugular vein under fluoroscopic guidance. Once adequately dilated, I placed the dilating sheath over the guidewire into the right internal jugular vein under fluoroscopic visualization. Once this was noted to be in good position, I removed both the guidewire and dilator, now just leaving the sheath in the vein. I then went ahead and fed the previously tunneled catheter into the sheath. Once the catheter was fed and positioned correctly, I went ahead and peeled the sheath away. Final fluoroscopic view showed the catheter in good position from its insertion point in the right chest to its termination in the atrial caval junction. It was noted there was no kinking of the catheter. I was able to easily draw and flush from both ports of the catheter. I placed 2.0 and 2.1 bj of final heparin flush into each port as marked. The catheter was then sutured into place and the incision in the neck was closed with 4 O Monocryl subcuticular suture. The patient tolerated the procedure well and will be transferred to the PACU in critical condition. Sterile dressing was placed on the catheter. Portable chest x-ray will be done in the PACU. Implants 24 cm tunneled hemodialysis catheter Estimated Blood Loss 5 Drains No Packing No Pathology None sent Complications No immediate complications Condition Stable Disposition PACU [facility] Billing Surgery - Charge Forward: Surgery Billing
[2023-08-15] MEDS: SODIUM CHLORIDE 0.9% IV 500 ML 30 ML IV CONT (14:58)
[2023-08-15 15:16] LABS: Glucose Point of Care 154 mg/dl (65-105)
--- NOTE | 2023-08-15 15:55 | PM.IMPN ---
Progress Note: A&P Assessment and Plan (1) Altered mental status: Code(s): R41.82 - Altered mental status, unspecified Status: Acute (2) Hypertension: Code(s): I10 - Essential (primary) hypertension Status: Chronic (3) Diabetes mellitus with chronic kidney disease: Code(s): E11.22 - Type 2 diabetes mellitus with diabetic chronic kidney disease Status: Chronic (4) Volume overload: Code(s): E87.70 - Fluid overload, unspecified Status: Chronic Plan 32F w/ PMH HTN, IDDM w/ stage 3B CKD, nephrotic syndrome, EDD, HFpEF, morbid obesity, chronic AC, chronic ulcers, s/p left leg amputation, left eye blindness, presented with pain and hypoxia 1) altered mental status - likely acute hypoxic encephalopathy as her episodes of obtundation correlated with drops in o2. she is now back to baseline cognition. ctm - neurology consulted. seizures? they had no further recommendations 2) acute hypoxic respiratory failure, likely new chronic - up to 10L at one point. she is now stabilized on 5L NC. she did have some pulmonary edema and now that is improved - ABG w/o hypercapnia 3) HFpEF - complicated by renal failure. - pulmonary edema improved. bumex dc'ed. she is now on dialysis - pulmonary edema on CXR and lung exam - cont I/O's, daily weights, fluid restriction 4) CKD stage III w/ nephrotic syndrome, now w/ BOBBY and dialysis - nephrology consulted. appreciate recs - bumex and metolazone dc'ed. albumin prn for hypotension - worsening, baseline is 1.4 - 1.8. now 2.6 --> 3.1 5) HTN 6) infected right heel ulcer - s/p debridement 08/12 - pending blood cultures, NGTD - cont cefepime and vancomycin, consider downgrade tomorrow 7) IDDM - cont accuchecks with sliding scale 8) acute on chronic anemia - check fecal occult, iron panel and ferritin - likely worsening of her chronic anemia with new onset renal failure - CTM , transfuse if HB <7 she is chronically ill prior to admission, unfortunately. her HF and kidney function have only worsened. she has a poor prognosis but at this point the patient and family are willing to keep trying everything. we can begin to attempt transfer back to [facility] as her multiple problems are stabilizing. FEN: saline lock IV, diabetic diet GI prophylaxis: not indicated DVT prophylaxis: on lovenox Lines: pIV, R tunneled central IJ placed 08/15 Code Status: FULL CODE Dispo: pending back to [facility]. More than 35 minutes spent on chart review, patient interaction and assessment and plan. Subjective Date/time seen: 08/15/23 15:55 Interval history: NAOE. pt is seen in PACU, drowsy but without complaints. Review of Systems Cardiovascular: Cardiovascular: Denies chest pain Respiratory: Respiratory: Denies chest congestion and Denies dyspnea Gastrointestinal: Gastrointestinal: Denies abdominal pain Exam Const: General: comfortable and no acute distress Resp: Effort & Inspection: normal respiratory effort Auscultation: crackles (now minimal) Cardio: Rate: regular rate Rhythm: regular rhythm Heart sounds: no gallops, no murmurs and no rubs GI: Inspection: non-distended GI Palp: No Tenderness to palpation present (GI) Objective Data Vital Signs Vital Signs: Vital Signs - 24 hr 08/14/23 16:00 08/14/23 16:00 08/14/23 16:00 Temperature 98.4 F Pulse Rate 81 80 Respiratory Rate 24 H Blood Pressure 164/80 H Pulse Oximetry 98 96 Oxygen Delivery High Flow Nasal Cannula Oxygen Flow Rate 7 08/14/23 18:00 08/14/23 20:00 08/14/23 21:09 Temperature 97 F L Pulse Rate 82 87 89 Respiratory Rate 18 Blood Pressure 150/74 H Pulse Oximetry 92 Oxygen Delivery Oxygen Flow Rate 08/14/23 20:00 08/14/23 23:31 08/14/23 23:00 Temperature 97.6 F Pulse Rate 82 Respiratory Rate 20 Blood Pressure 161/82 H Pulse Oximetry 92 95 87 L Oxygen Delivery High Flow Nasal Cannula High Flow Nasal Cannula Oxygen Flow Rate 7
[2023-08-15 16:48] LABS: Glucose Point of Care 125 mg/dl (65-105)
[2023-08-15] MEDS: CEFEPIME 1 GM/NS 50 ML 1 GM/50 ML BAG IVPB (18:08)
[2023-08-15] MEDS: ENOXAPARIN 60 MG/0.6 ML SYRINGE SUB-Q (18:08)
--- NOTE | 2023-08-15 19:46 | PC.NURSE ---
RN notified by boring mill operator that pt c/o feeling her heart pounding. HR 83 and regular on monitor. SpO2 in mid 90's. RN went up to HD to assess pt. Pulse regular and strong. No c/o of SOB, diaphoresis, or dizziness. Discussed with boring mill operator that this is pt's first dialysis treatment and potentially may be having symptoms related to pulling fluid off. Plan was to pull off 3L. Asked dialysis nurse to call if the pt has any worsening symptoms and RN will watch monitor for any changes.
[2023-08-15] MEDS: VANCOMYCIN 1,000 MG/NS 250 ML 1,000 MG/250 ML BAG 250 MG IVPB (21:57)
[2023-08-15 22:06] LABS: Glucose Point of Care 239 mg/dl (65-105)
[2023-08-15] MEDS: traMADol HCL (*CRX) 50 MG TABLET PO (22:11)
[2023-08-16] VITALS (36 sets, daily range): BP systolic 90–165; BP diastolic 57–92; PULSE 62–94; RESP 13–24; TEMP 0–36.8; O2SAT 92–100
[2023-08-16 04:28] LABS: Basophils Percent Auto 0.4 % (0.2-1.2); Eosinophils Absolute Auto 0.8 K/mm3 (0-0.3); Eosinophils Percent Auto 9.8 % (0-4.4); Hematocrit 22.1 % (37.0-47.0); Immature Granulocyte Absolute 0.07 K/mm3 (0.00-0.031); Immature Granulocyte Percent A 0.8 % (0-0.5); Lymphocytes Percent Auto 17.6 % (18.3-44.2); Mean Corpuscular HGB Conc 31.2 g/dl (32-36); Mean Corpuscular Hemoglobin 29.4 pg (26-34); Monocytes Absolute Auto 0.9 K/mm3 (0.1-0.6); Monocytes Percent Auto 10.1 % (2.6-8.5); Neutrophils Absolute Auto 5.2 K/mm3 (1.3-6.7); Neutrophils Percent Auto 61.3 % (45.5-73.1); Nucleated Red Blood Cells Perc 0.4 % (0.0-0.2); Platelet Count Result 269 k/mm3 (150-375); Red Blood Count 2.35 M/mm3 (4.2-5.4); Red Cell Distribution Width 15.4 % (11.5-14.5); White Blood Count 8.5 K/mm3 (4.5-10.0)
[2023-08-16 04:41] LABS: Iron 54 ug/dL (37-170)
[2023-08-16 04:44] LABS: Alanine Aminotransferase 19 U/L (6-35); Alkaline Phosphatase 120 U/L (38-126); Anion Gap 4 mmol/L (8-16); Aspartate Amino Transferase 37 U/L (14-36); Bilirubin,Total 0.5 mg/dL (0.2-1.3); Blood Urea Nitrogen 29 mg/dL (7-17); Calcium 8.3 mg/dL (8.4-10.2); Carbon Dioxide 37 mmol/L (22-30); Chloride 101 mmol/L (98-107); Estimated CRCL calculation 37 ml/min; Estimated Glomerular Filt Rate 23; Glucose 197 mg/dL (65-110); Magnesium 1.8 mg/dL (1.6-2.3); Phosphorus 3.5 mg/dL (2.5-4.5); Potassium 3.1 mmol/L (3.4-5.0); Sodium 142 mmol/L (137-145)
[2023-08-16 04:51] LABS: Percent Iron Saturation 49 % (20-50)
[2023-08-16 05:15] LABS: Hemoglobin 6.9 g/dL (12.0-15.0)
[2023-08-16] MEDS: ENOXAPARIN 60 MG/0.6 ML SYRINGE SUB-Q (06:21)
[2023-08-16] MEDS: FERROUS SULFATE 325 MG TABLET DR BY MOUTH (08:41)
[2023-08-16] MEDS: ASCORBIC ACID 500 MG TABLET PO ×2 (08:41→20:34)
[2023-08-16] MEDS: MULTIVITAMINS THERAPEUTIC TAB (*BKC) 1 TABLET PO (08:42)
[2023-08-16] MEDS: POTASSIUM CHLORIDE 20 MEQ ER TABLET PO (08:42)
[2023-08-16] MEDS: carvediloL 12.5 MG TABLET PO ×2 (08:42→20:34)
[2023-08-16 08:45] LABS: Glucose Point of Care 173 mg/dl (65-105)
[2023-08-16] MEDS: EUCERIN CREAM 120 GM JAR 1 APPLIC TOPICAL (08:51)
[2023-08-16] MEDS: COLLAGENASE OINT 30 GM TUBE 1 APPLIC TOPICAL (08:51)
[2023-08-16 12:05] LABS: Glucose Point of Care 165 mg/dl (65-105)
--- NOTE | 2023-08-16 12:32 | P.PNNP_ITS ---
Progress Note: A&P Assessment and Plan (1) Volume overload: Code(s): E87.70 - Fluid overload, unspecified Status: Chronic Assessment and Plan: * only mild improvement since admission * anasarca noted on presentation (but appears a chronic issue) * has had several hospitalizations in the last 4 months regarding this issue * felt to be secondary to nephrotic range proteinuria/nephrotic syndrome and diastolic heart failure * off amlodipine * 24hour urine showed a GFR of only 12 and a creatinine of 2.9. * Perhaps she just needs dialysis long-term. * Hemodialysis catheter placed yesterday. She had some fluid removed yesterday. * Will have a dry ultrafiltration today. * I suspect the patient will need long-term dialysis. Will order hepatitis studies and get bilingual case manager involved on Friday. (2) Stage 3b chronic kidney disease: Code(s): N18.32 - Chronic kidney disease, stage 3b Status: Chronic Assessment and Plan: * has fluctuated to extremes over the last few months * has been as low as 1.2mg/dl to as high as 3.0mg/dl * these fluctuations are related to her issues with volume overload, need for diuretics, suspected renal venous HTN, and recurrent infections/wounds * baseline creatinine seems to average out to 1.4 - 1.8mg/dl * due to diabetes . * The creatinine of 1.4-1.8 may be low because of dilution because her massive volume overload and a creatinine of 2.9 may be more loan servicing representative of her real kidney function which is only 12. So she may need long-term dialysis if not for volume control but for poison control as well. It is possible that renal venous hypertension could be playing a role acutely and so removal of fluid could make her creatinine better so will keep an eye on this. In the meantime will check hepatitis studies and consider getting set up for outpatient dialysis on an acute basis at least if not for ESRD. (3) Nephrotic syndrome: Code(s): N04.9 - Nephrotic syndrome with unspecified morphologic changes Status: Chronic Assessment and Plan: * noted in the last 4 months: * nephrotic range proteinuria (> 11 grams on this admission) * significant issues with edema/swelling * hypoalbuminemia (serum albumin as low as 1.5mg/dl in the past) * presumably secondary to poorly controlled diabetes in association with hypertension complicated by poor nutrition status * Adama-I on hold but she will eventually need this restarted * see #1 (4) CHF (congestive heart failure): Qualifiers: Heart failure chronicity: acute on chronic Heart failure type: unspecified Qualified Code(s): I50.9 - Heart failure, unspecified Code(s): I50.9 - Heart failure, unspecified Status: Chronic Assessment and Plan: * diastolic dysfunction noted by Echo * continue diuresis/ultrafiltration as tolerated (5) Hypertension: Code(s): I10 - Essential (primary) hypertension Status: Chronic Assessment and Plan: * poor control at baseline * noted to be in the 200s systolic on admission * Systolic ranging from 130s to 160s. * Continue current regimen while we remove fluid. We may be able to back off on some of the blood pressure meds once the fluid is better. (6) Chronic heel ulcer: Qualifiers: Laterality: right Non-pressure ulcer stage: unspecified non-pressure ulcer stage Qualified Code(s): L97.419 - Non-pressure chronic ulcer of right heel and midfoot with unspecified severity Code(s): L97.409 - Non-pressure chronic ulcer of unspecified heel and midfoot with unspecified se
--- NOTE | 2023-08-16 12:32 | PM.PNNEP ---
Progress Note: A&P Assessment and Plan (1) Volume overload: Code(s): E87.70 - Fluid overload, unspecified Status: Chronic Assessment and Plan: only mild improvement since admission anasarcpastor noted on presentation (but appears a chronic issue) has had several hospitalizations in the last 4 months regarding this issue felt to be secondary to nephrotic range proteinuria/nephrotic syndrome and diastolic heart failure off amlodipine 24hour urine showed a GFR of only 12 and a creatinine of 2.9. Perhaps she just needs dialysis long-term. Hemodialysis catheter placed yesterday. She had some fluid removed yesterday. Will have a dry ultrafiltration today. I suspect the patient will need long-term dialysis. Will order hepatitis studies and get rifle case repairer involved on Friday. (2) Stage 3b chronic kidney disease: Code(s): N18.32 - Chronic kidney disease, stage 3b Status: Chronic Assessment and Plan: has fluctuated to extremes over the last few months has been as low as 1.2mg/dl to as high as 3.0mg/dl these fluctuations are related to her issues with volume overload, need for diuretics, suspected renal venous HTN, and recurrent infections/wounds baseline creatinine seems to average out to 1.4 - 1.8mg/dl due to diabetes . The creatinine of 1.4-1.8 may be low because of dilution because her massive volume overload and a creatinine of 2.9 may be more authorization representative of her real kidney function which is only 12. So she may need long-term dialysis if not for volume control but for poison control as well. It is possible that renal venous hypertension could be playing a role acutely and so removal of fluid could make her creatinine better so will keep an eye on this. In the meantime will check hepatitis studies and consider getting set up for outpatient dialysis on an acute basis at least if not for ESRD. (3) Nephrotic syndrome: Code(s): N04.9 - Nephrotic syndrome with unspecified morphologic changes Status: Chronic Assessment and Plan: noted in the last 4 months: nephrotic range proteinuria (> 11 grams on this admission) significant issues with edema/swelling hypoalbuminemia (serum albumin as low as 1.5mg/dl in the past) presumably secondary to poorly controlled diabetes in association with hypertension complicated by poor nutrition status Adama-I on hold but she will eventually need this restarted see #1 (4) CHF (congestive heart failure): Qualifiers: Heart failure chronicity: acute on chronic Heart failure type: unspecified Qualified Code(s): I50.9 - Heart failure, unspecified Code(s): I50.9 - Heart failure, unspecified Status: Chronic Assessment and Plan: diastolic dysfunction noted by Echo continue diuresis/ultrafiltration as tolerated (5) Hypertension: Code(s): I10 - Essential (primary) hypertension Status: Chronic Assessment and Plan: poor control at baseline noted to be in the 200s systolic on admission Systolic ranging from 130s to 160s. Continue current regimen while we remove fluid. We may be able to back off on some of the blood pressure meds once the fluid is better. (6) Chronic heel ulcer: Qualifiers: Laterality: right Non-pressure ulcer stage: unspecified non-pressure ulcer stage Qualified Code(s): L97.419 - Non-pressure chronic ulcer of right heel and midfoot with unspecified severity Code(s): L97.409 - Non-pressure chronic ulcer of unspecified heel and midfoot with unspecified severity Status: Chronic Assessment and Plan: has been an issues for the last 2 - 3 months was recommended to have right BKA by Vascular Surgery at [facility] (as well as by other surgeons at another hospital) but she refused this intervention was treated with 6 weeks of IV antibiotics already (was being followed by [facility] Infectious Disease) General Surgery following - s/p debrid
--- NOTE | 2023-08-16 14:00 | PM.IMPN ---
Progress Note: A&P Assessment and Plan (1) Altered mental status: Code(s): R41.82 - Altered mental status, unspecified Status: Acute (2) Hypertension: Code(s): I10 - Essential (primary) hypertension Status: Chronic (3) Diabetes mellitus with chronic kidney disease: Code(s): E11.22 - Type 2 diabetes mellitus with diabetic chronic kidney disease Status: Chronic (4) Volume overload: Code(s): E87.70 - Fluid overload, unspecified Status: Chronic (5) Anemia: Code(s): D64.9 - Anemia, unspecified Status: Acute Plan 32F w/ PMH HTN, IDDM w/ stage 3B CKD, nephrotic syndrome, EDD, HFpEF, morbid obesity, chronic AC, chronic ulcers, s/p left leg amputation, left eye blindness, presented with pain and hypoxia 1) altered mental status - likely acute hypoxic encephalopathy as her episodes of obtundation correlated with drops in o2. she is now back to baseline cognition. ctm - neurology consulted. seizures? they had no further recommendations 2) acute hypoxic respiratory failure, likely new chronic - up to 10L at one point. she is now stabilized on 5L NC. she did have some pulmonary edema and now that is improved - ABG w/o hypercapnia 3) HFpEF - complicated by renal failure. - pulmonary edema improved. bumex dc'ed. she is now on dialysis - pulmonary edema on CXR and lung exam - cont I/O's, daily weights, fluid restriction 4) CKD stage III w/ nephrotic syndrome, now w/ BOBBY and dialysis - nephrology consulted. started dialysis after placement of tunnelled right IJ cathether on 08/15. tolerated it well. to go again for ultrafiltration on 08/16. - bumex and metolazone dc'ed. albumin prn for hypotension - worsening, baseline is 1.4 - 1.8. now 2.6 --> 3.1 5) HTN 6) infected right heel ulcer - s/p debridement 08/12 - pending blood cultures, NGTD - cont cefepime and vancomycin, consider downgrade tomorrow 7) IDDM - cont accuchecks with sliding scale 8) acute on chronic anemia - likely worsened by renal failure. on epo now. cont iron as well. - transfuse 1 unit PRBC on 10/14/23. CTM she is chronically ill prior to admission, unfortunately. her HF and kidney function have only worsened. she has a poor prognosis but at this point the patient and family are willing to keep trying everything. we can begin to attempt transfer back to [facility] as her multiple problems are stabilizing. FEN: saline lock IV, diabetic diet GI prophylaxis: not indicated DVT prophylaxis: dc'ed lovenox 2/2 to anemia Lines: pIV, R tunneled central IJ placed 08/15 Code Status: FULL CODE Dispo: pending back to [facility]. More than 35 minutes spent on chart review, patient interaction and assessment and plan. Subjective Date/time seen: 08/16/23 14:00 Interval history: pt appears the same as yesterday, her usual tired look. but she has no complaints and is amenable to receiving blood in light of the risks of transfusion. Review of Systems Review of Systems: All systems reviewed & are unremarkable except as noted in HPI and below Exam Const: General: comfortable and no acute distress Eyes: Pupils: Equal, round and reactive pupils present Resp: Effort & Inspection: normal respiratory effort Auscultation: crackles (diffuse) Cardio: Rate: regular rate Rhythm: regular rhythm GI: Inspection: non-distended Objective Data Vital Signs Vital Signs: Vital Signs - 24 hr 08/15/23 14:58 08/15/23 15:15 08/15/23 15:30 Temperature 97.7 F Pulse Rate 76 76 77 Respiratory Rate 20 14 18 Blood Pressure 180/92 H 188/96 H 176/82 H Pulse Oximetry 97 98 95 Oxygen Delivery Simple Face Mask Simple Face Mask High Flow Therapy with Na Oxygen Flow Rate 8 6 5 08/15/23 15:45 08/15/23 16:00 08/15/23 16:00 Temperature 98.2 F Pulse Rate 77 77 78 Respiratory Rate 18 22 H 16 Blood Pressure 177/92 H 185/87 H 116/82 Pulse Oximetry 96 95 93 Oxygen Delivery High Flow Therapy with Na High Flow Therapy with Na
[2023-08-16 16:10] LABS: Hepatitis C Virus Antibody Negative (Negative)
[2023-08-16 19:29] LABS: Glucose Point of Care 140 mg/dl (65-105)
[2023-08-16] MEDS: SODIUM CHLORIDE 0.9% IV 250 ML 30 ML IV CONT (20:02)
[2023-08-16] MEDS: TUBING, BLOOD PLUM PUMP TUBING 1 EACH XX (20:02)
[2023-08-16 20:07] LABS: Glucose Point of Care 193 mg/dl (65-105)
[2023-08-16] MEDS: CEFEPIME 1 GM/NS 50 ML 1 GM/50 ML BAG IVPB (20:37)
[2023-08-17] VITALS (13 sets, daily range): BP systolic 151–164; BP diastolic 78–90; PULSE 76–86; RESP 16–20; TEMP 36.3–37; O2SAT 93–99
[2023-08-17] MEDS: traMADol HCL (*CRX) 50 MG TABLET PO ×2 (00:16→22:08)
[2023-08-17 04:53] LABS: Basophils Absolute Auto 0.1 K/mm3 (0.0-0.1); Basophils Percent Auto 0.5 % (0.2-1.2); Eosinophils Absolute Auto 0.9 K/mm3 (0-0.3); Eosinophils Percent Auto 9.7 % (0-4.4); Immature Granulocyte Absolute 0.06 K/mm3 (0.00-0.031); Immature Granulocyte Percent A 0.6 % (0-0.5); Lymphocytes Absolute Auto 1.75 K/mm3 (0.9-3.2); Lymphocytes Percent Auto 18.1 % (18.3-44.2); Mean Corpuscular HGB Conc 30.8 g/dl (32-36); Mean Corpuscular Hemoglobin 29.1 pg (26-34); Mean Corpuscular Volume 94.5 fl (80-100); Mean Platelet Volume 11.1 fl (7.4-10.4); Monocytes Percent Auto 10.3 % (2.6-8.5); Neutrophils Absolute Auto 5.9 K/mm3 (1.3-6.7); Neutrophils Percent Auto 60.8 % (45.5-73.1); Nucleated Red Blood Cells Perc 0.4 % (0.0-0.2); Platelet Count Result 313 k/mm3 (150-375); Red Blood Count 2.75 M/mm3 (4.2-5.4); Red Cell Distribution Width 15.1 % (11.5-14.5); White Blood Count 9.7 K/mm3 (4.5-10.0)
[2023-08-17 05:04] LABS: Alanine Aminotransferase 19 U/L (6-35); Alkaline Phosphatase 128 U/L (38-126); Anion Gap 4 mmol/L (8-16); Aspartate Amino Transferase 46 U/L (14-36); Bilirubin,Total 0.5 mg/dL (0.2-1.3); Blood Urea Nitrogen 30 mg/dL (7-17); Carbon Dioxide 35 mmol/L (22-30); Chloride 102 mmol/L (98-107); Estimated CRCL calculation 37 ml/min; Estimated Glomerular Filt Rate 24; Glucose 176 mg/dL (65-110); Magnesium 1.9 mg/dL (1.6-2.3); Phosphorus 3.5 mg/dL (2.5-4.5); Potassium 3.3 mmol/L (3.4-5.0); Sodium 141 mmol/L (137-145)
[2023-08-17 05:07] LABS: Vancomycin Trough 18.3 ug/mL (10.0-20.0)
[2023-08-17 07:50] LABS: Glucose Point of Care 132 mg/dl (65-105)
[2023-08-17] MEDS: carvediloL 12.5 MG TABLET PO ×2 (10:25→20:45)
[2023-08-17] MEDS: FERROUS SULFATE 325 MG TABLET DR BY MOUTH (10:25)
[2023-08-17] MEDS: EUCERIN CREAM 120 GM JAR 1 APPLIC TOPICAL (10:25)
[2023-08-17] MEDS: MULTIVITAMINS THERAPEUTIC TAB (*BKC) 1 TABLET PO (10:25)
[2023-08-17] MEDS: COLLAGENASE OINT 30 GM TUBE 1 APPLIC TOPICAL (10:25)
[2023-08-17] MEDS: ASCORBIC ACID 500 MG TABLET PO ×2 (10:25→17:52)
[2023-08-17] MEDS: POTASSIUM CHLORIDE 20 MEQ ER TABLET PO (10:25)
[2023-08-17 11:50] LABS: Glucose Point of Care 151 mg/dl (65-105)
--- NOTE | 2023-08-17 12:39 | PM.IMPN ---
Progress Note: A&P Assessment and Plan (1) Anemia: Code(s): D64.9 - Anemia, unspecified Status: Acute (2) Altered mental status: Code(s): R41.82 - Altered mental status, unspecified Status: Acute (3) Hypertension: Code(s): I10 - Essential (primary) hypertension Status: Chronic (4) Diabetes mellitus with chronic kidney disease: Code(s): E11.22 - Type 2 diabetes mellitus with diabetic chronic kidney disease Status: Chronic (5) Nephrotic syndrome: Code(s): N04.9 - Nephrotic syndrome with unspecified morphologic changes Status: Chronic (6) Stage 3b chronic kidney disease: Code(s): N18.32 - Chronic kidney disease, stage 3b Status: Chronic (7) Volume overload: Code(s): E87.70 - Fluid overload, unspecified Status: Chronic (8) Chronic 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: Code(s): 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 She is an unfortunate lady with morbid obesity and DM since her teens. She came from a rehab facility with the above complaints. She was found to have an infected right heel ulcer which was debrided. Her new onset acute hypoxic respiratory failure appears to be due to CKD advancing to ESRD as she has nephrotic range proteinuria. A tunneled dialysis cath was placed. At one point she was up to 10L HFNC but she is down now to 3L NC. She also had intermittent episodes of obtundation in sync with hypoxia. That has resolved. Discharge back to SNF as soon as case workers can setup for dialysis. See nephrology notes. 1) fluid overload - trialed on lasix, which did not work. she is now on dialysis and improving slowly. - nephrotic syndrome. ordered echo to assess EF 2) acute hypoxic respiratory failure on admission, now chronic - up to 10L at one point. she is now stabilized on 3L NC. she did have some pulmonary edema and now that is improved. will need o2 on discharge - ABG w/o hypercapnia 3) CKD stage IIIB w/ nephrotic syndrome likely 2/2 DM, now on dialysis - nephrology consulted. could not take fluid off with aggressive diuretics so started dialysis after placement of tunnelled right IJ catheter on 08/15. received ultrafiltration 4L again on 08/16 which she tolerated and now her o2 requirement is down. - CTM. case workers to setup for dialysis ongoing 4) HTN - controlled 5) infected right heel ulcer - s/p debridement 08/12. received 2 weeks of vanc + cefepime, dc'ed on 08/17 as she is non toxic appearing. blood cultures NGTD 6) blindness - f/u ophthalmology as outpatient, chronic 7) IDDM - cont accuchecks with sliding scale 8) acute on chronic anemia - likely worsened by renal failure. on epo now. cont iron as well. - transfuse 1 unit PRBC on 08/16/23. CTM - coumadin/lovenox stopped. discussed with patient her risk for bleeding vs clots, and she elects to forgo blood thinners. this is reasonable as she was admitted on coumadin for prior provoked UE clot 2/2 PICC line. UE US now negative for DVT FEN: saline lock IV, diabetic diet GI prophylaxis: not indicated DVT prophylaxis: dc'ed lovenox 2/2 to anemia Lines: pIV, R tunneled central IJ placed 08/15 Code Status: FULL CODE Dispo: pending back to [facility] Subjective Date/time seen: 08/17/23 12:39 Interval history: NAOE. she had 4L ultrafiltration with nephrology yesterday. she feels the same. denies chest pain, SOB Review of Systems Review of Systems: All systems reviewed & are unremarkable except as noted in HPI and below Exam Const: General: comfortable and no acute distress Eyes: Pupils: Equal, round and reactive pupils present Res
--- NOTE | 2023-08-17 14:07 | P.PNNP_ITS ---
Progress Note: A&P Assessment and Plan (1) Volume overload: Code(s): E87.70 - Fluid overload, unspecified Status: Chronic Assessment and Plan: * only mild improvement since admission * anasarca noted on presentation * felt to be secondary to nephrotic range proteinuria/nephrotic syndrome and diastolic heart failure * off amlodipine * 24hour urine showed a GFR of only 12 and a creatinine of 2.9. * long discussion with the patient. * Sometimes there is improvement in the kidney function when fluid is removed due to improvement in renal venous hypertension. On the other hand her parenchymal renal disease may be bad enough that she needs dialysis long-term. * cannot go comes back tomorrow to help with this issue. (2) Stage 3b chronic kidney disease: Code(s): N18.32 - Chronic kidney disease, stage 3b Status: Chronic Assessment and Plan: * has fluctuated to extremes over the last few months * has been as low as 1.2mg/dl to as high as 3.0mg/dl * these fluctuations are related to her issues with volume overload, need for diuretics, suspected renal venous HTN, and recurrent infections/wounds * baseline creatinine seems to average out to 1.4 - 1.8mg/dl * due to diabetes . (3) Nephrotic syndrome: Code(s): N04.9 - Nephrotic syndrome with unspecified morphologic changes Status: Chronic Assessment and Plan: * noted in the last 4 months: * nephrotic range proteinuria (> 11 grams on this admission) * significant issues with edema/swelling * hypoalbuminemia (serum albumin as low as 1.5mg/dl in the past) * presumably secondary to poorly controlled diabetes in association with hypertension complicated by poor nutrition status * Adama-I on hold but she will eventually need this restarted * see #1 (4) CHF (congestive heart failure): Qualifiers: Heart failure chronicity: acute on chronic Heart failure type: unspecified Qualified Code(s): I50.9 - Heart failure, unspecified Code(s): I50.9 - Heart failure, unspecified Status: Chronic Assessment and Plan: * diastolic dysfunction noted by Echo * continue diuresis/ultrafiltration as tolerated (5) Hypertension: Code(s): I10 - Essential (primary) hypertension Status: Chronic Assessment and Plan: * poor control at baseline * noted to be in the 200s systolic on admission * Systolic ranging from 130s to 160s. * Latest blood pressure 155/78 * no change in BP med so far. (6) Chronic heel ulcer: Qualifiers: Laterality: right Non-pressure ulcer stage: unspecified non-pressure ulcer stage Qualified Code(s): L97.419 - Non-pressure chronic ulcer of right heel and midfoot with unspecified severity Code(s): L97.409 - Non-pressure chronic ulcer of unspecified heel and midfoot with unspecified severity Status: Chronic Assessment and Plan: * has been an issues for the last 2 - 3 months * was recommended to have right BKA by Vascular Surgery at [facility] (as well as by other surgeons at another hospital) but she refused this intervention * was treated with 6 weeks of IV antibiotics already (was being followed by [facility] Infectious Disease) * General Surgery following - s/p debridement (7) Diabetes mellitus with chronic kidney disease: Code(s): E11.22 - Type 2 diabetes mellitus with diabetic chronic kidney disease Status: Chronic Assessment and Plan: * noted poor control with associated complications (retinopathy, neuropathy, nephropathy) * follow accu-cheks * glyc
--- NOTE | 2023-08-17 14:07 | PM.PNNEP ---
Progress Note: A&P Assessment and Plan (1) Volume overload: Code(s): E87.70 - Fluid overload, unspecified Status: Chronic Assessment and Plan: only mild improvement since admission anasarca noted on presentation felt to be secondary to nephrotic range proteinuria/nephrotic syndrome and diastolic heart failure off amlodipine 24hour urine showed a GFR of only 12 and a creatinine of 2.9. long discussion with the patient. Sometimes there is improvement in the kidney function when fluid is removed due to improvement in renal venous hypertension. On the other hand her parenchymal renal disease may be bad enough that she needs dialysis long-term. Dr. santiago go comes back tomorrow to help with this issue. (2) Stage 3b chronic kidney disease: Code(s): N18.32 - Chronic kidney disease, stage 3b Status: Chronic Assessment and Plan: has fluctuated to extremes over the last few months has been as low as 1.2mg/dl to as high as 3.0mg/dl these fluctuations are related to her issues with volume overload, need for diuretics, suspected renal venous HTN, and recurrent infections/wounds baseline creatinine seems to average out to 1.4 - 1.8mg/dl due to diabetes . (3) Nephrotic syndrome: Code(s): N04.9 - Nephrotic syndrome with unspecified morphologic changes Status: Chronic Assessment and Plan: noted in the last 4 months: nephrotic range proteinuria (> 11 grams on this admission) significant issues with edema/swelling hypoalbuminemia (serum albumin as low as 1.5mg/dl in the past) presumably secondary to poorly controlled diabetes in association with hypertension complicated by poor nutrition status Adama-I on hold but she will eventually need this restarted see #1 (4) CHF (congestive heart failure): Qualifiers: Heart failure chronicity: acute on chronic Heart failure type: unspecified Qualified Code(s): I50.9 - Heart failure, unspecified Code(s): I50.9 - Heart failure, unspecified Status: Chronic Assessment and Plan: diastolic dysfunction noted by Echo continue diuresis/ultrafiltration as tolerated (5) Hypertension: Code(s): I10 - Essential (primary) hypertension Status: Chronic Assessment and Plan: poor control at baseline noted to be in the 200s systolic on admission Systolic ranging from 130s to 160s. Latest blood pressure 155/78 no change in BP med so far. (6) Chronic heel ulcer: Qualifiers: Laterality: right Non-pressure ulcer stage: unspecified non-pressure ulcer stage Qualified Code(s): L97.419 - Non-pressure chronic ulcer of right heel and midfoot with unspecified severity Code(s): L97.409 - Non-pressure chronic ulcer of unspecified heel and midfoot with unspecified severity Status: Chronic Assessment and Plan: has been an issues for the last 2 - 3 months was recommended to have right BKA by Vascular Surgery at [facility] (as well as by other surgeons at another hospital) but she refused this intervention was treated with 6 weeks of IV antibiotics already (was being followed by [facility] Infectious Disease) General Surgery following - s/p debridement (7) Diabetes mellitus with chronic kidney disease: Code(s): E11.22 - Type 2 diabetes mellitus with diabetic chronic kidney disease Status: Chronic Assessment and Plan: noted poor control with associated complications (retinopathy, neuropathy, nephropathy) follow accu-cheks glycemic control as per hospitalists Subjective Date/time seen: 08/17/23 14:07 Interval history: The patient is awake. Comfortable in bed. Exam Narrative: General: Large AA female sitting up bed in NAD Heart: normal S1 and S2; no rub or gallop Lungs: Decreased breath sounds at bases. Clear otherwise Abdomen: obese but soft, nontender, nondistended, positive bowel sounds Extremities: anasarca; s
[2023-08-17 16:52] LABS: Glucose Point of Care 126 mg/dl (65-105)
[2023-08-17 20:28] LABS: Glucose Point of Care 211 mg/dl (65-105)
[2023-08-17] MEDS: MELATONIN 3 MG TABLET PO (20:46)
[2023-08-18] VITALS (29 sets, daily range): BP systolic 144–168; BP diastolic 81–99; PULSE 70–87; RESP 14–20; TEMP 35.9–36.9; O2SAT 94–100
[2023-08-18 04:47] LABS: Alanine Aminotransferase 25 U/L (6-35); Albumin Level 2.9 g/dL (3.5-5.1); Alkaline Phosphatase 149 U/L (38-126); Anion Gap 3 mmol/L (8-16); Aspartate Amino Transferase 71 U/L (14-36); Bilirubin,Total 0.5 mg/dL (0.2-1.3); Blood Urea Nitrogen 29 mg/dL (7-17); Calcium 8.1 mg/dL (8.4-10.2); Carbon Dioxide 35 mmol/L (22-30); Chloride 104 mmol/L (98-107); Estimated CRCL calculation 39 ml/min; Estimated Glomerular Filt Rate 25; Glucose 166 mg/dL (65-110); Magnesium 1.9 mg/dL (1.6-2.3); Phosphorus 3.6 mg/dL (2.5-4.5); Potassium 3.4 mmol/L (3.4-5.0); Sodium 142 mmol/L (137-145)
[2023-08-18 06:17] LABS: Basophils Percent Auto 0.4 % (0.2-1.2); Eosinophils Absolute Auto 0.9 K/mm3 (0-0.3); Eosinophils Percent Auto 9.6 % (0-4.4); Hematocrit 28.2 % (37.0-47.0); Hemoglobin 8.4 g/dL (12.0-15.0); Immature Granulocyte Absolute 0.09 K/mm3 (0.00-0.031); Immature Granulocyte Percent A 0.9 % (0-0.5); Lymphocytes Absolute Auto 1.88 K/mm3 (0.9-3.2); Lymphocytes Percent Auto 19.6 % (18.3-44.2); Mean Corpuscular HGB Conc 29.8 g/dl (32-36); Mean Corpuscular Volume 97.2 fl (80-100); Mean Platelet Volume 10.6 fl (7.4-10.4); Monocytes Absolute Auto 0.9 K/mm3 (0.1-0.6); Monocytes Percent Auto 9.8 % (2.6-8.5); Neutrophils Absolute Auto 5.7 K/mm3 (1.3-6.7); Neutrophils Percent Auto 59.7 % (45.5-73.1); Nucleated Red Blood Cells Absolute Auto 0.1 K/mm3 (0.0-0.012); Nucleated Red Blood Cells Perc 0.5 % (0.0-0.2); Platelet Count Result 348 k/mm3 (150-375); Red Cell Distribution Width 15.9 % (11.5-14.5); White Blood Count 9.6 K/mm3 (4.5-10.0)
[2023-08-18 07:06] LABS: Hypochromasia 2+ (NORMAL); Platelet Estimate Adequate (Adequate); Schistocytes None Seen (NORMAL); Target Cells 1+ (NORMAL)
[2023-08-18 07:28] LABS: Glucose Point of Care 164 mg/dl (65-105)
[2023-08-18] MEDS: HEPARIN SODIUM 1,000 UNITS/ML VIAL 1000 UNITS IV PUSH ×2 (08:29→11:48)
[2023-08-18] MEDS: HEPARIN SODIUM 1,000 UNITS/ML VIAL 500 UNITS IV PUSH ×2 (08:32→09:32)
--- NOTE | 2023-08-18 08:57 | PC.NURSE ---
0800- to dialysis room for treatment via bed with O2 on 4 l/nc-accompanied by staff
--- NOTE | 2023-08-18 10:00 | PM.PNNEP ---
Progress Note: A&P Assessment and Plan (1) Volume overload: Code(s): E87.70 - Fluid overload, unspecified Status: Chronic Assessment and Plan: only mild improvement with conservative therapy anasarca noted on presentation felt to be secondary to nephrotic range proteinuria/nephrotic syndrome and diastolic heart failure off amlodipine 24hour urine showed a GFR of only 12 and a creatinine of 2.9mg/dl.... sometimes there is improvement in the kidney function when fluid is removed due to improvement in renal venous hypertension; on the other hand, her parenchymal renal disease may be bad enough that she needs dialysis long-term DUF treatment today will need outpatient dialysis on discharge (2) Stage 3b chronic kidney disease: Code(s): N18.32 - Chronic kidney disease, stage 3b Status: Chronic Assessment and Plan: has fluctuated to extremes over the last few months has been as low as 1.2mg/dl to as high as 3.0mg/dl these fluctuations are related to her issues with volume overload, need for diuretics, suspected renal venous HTN, and recurrent infections/wounds baseline creatinine seems to average out to 1.4 - 1.8mg/dl due to diabetes . (3) Nephrotic syndrome: Code(s): N04.9 - Nephrotic syndrome with unspecified morphologic changes Status: Chronic Assessment and Plan: noted in the last 4 months: nephrotic range proteinuria (> 11 grams on this admission) significant issues with edema/swelling hypoalbuminemia (serum albumin as low as 1.5mg/dl in the past) presumably secondary to poorly controlled diabetes in association with hypertension complicated by poor nutrition status Adama-I on hold but she will eventually need this restarted see #1 (4) CHF (congestive heart failure): Qualifiers: Heart failure chronicity: acute on chronic Heart failure type: unspecified Qualified Code(s): I50.9 - Heart failure, unspecified Code(s): I50.9 - Heart failure, unspecified Status: Chronic Assessment and Plan: diastolic dysfunction noted by Echo continue diuresis/ultrafiltration as tolerated (5) Hypertension: Code(s): I10 - Essential (primary) hypertension Status: Chronic Assessment and Plan: poor control at baseline noted to be in the 200s systolic on admission better control currently follow trend of hemodynamics with fluid removal (6) Chronic heel ulcer: Qualifiers: Laterality: right Non-pressure ulcer stage: unspecified non-pressure ulcer stage Qualified Code(s): L97.419 - Non-pressure chronic ulcer of right heel and midfoot with unspecified severity Code(s): L97.409 - Non-pressure chronic ulcer of unspecified heel and midfoot with unspecified severity Status: Chronic Assessment and Plan: has been an issues for the last 2 - 3 months was recommended to have right BKA by Vascular Surgery at [facility] (as well as by other surgeons at another hospital) but she refused this intervention was treated with 6 weeks of IV antibiotics already (was being followed by [facility] Infectious Disease) General Surgery following - s/p debridement (7) Diabetes mellitus with chronic kidney disease: Code(s): E11.22 - Type 2 diabetes mellitus with diabetic chronic kidney disease Status: Chronic Assessment and Plan: noted poor control with associated complications (retinopathy, neuropathy, nephropathy) follow accu-cheks glycemic control as per hospitalists Will continue to follow. Subjective Date/time seen: 08/18/23 10:00 Interval history: Follow-up for chronic kidney disease, volume overload/anasarca, and nephrotic syndrome. Tolerating dry ultrafiltration treatment at the time of my visit (seen on DUF at 9:50AM); breathing and swelling/edema seem to be improving in general with dialytic intervention; no apparent distress noted. Exam Narrative: General: Oneal KAPLAN
--- NOTE | 2023-08-18 10:00 | P.PNNP_ITS ---
Progress Note: A&P Assessment and Plan (1) Volume overload: Code(s): E87.70 - Fluid overload, unspecified Status: Chronic Assessment and Plan: * only mild improvement with conservative therapy * anasarca noted on presentation * felt to be secondary to nephrotic range proteinuria/nephrotic syndrome and diastolic heart failure * off amlodipine * 24hour urine showed a GFR of only 12 and a creatinine of 2.9mg/dl.... * sometimes there is improvement in the kidney function when fluid is removed due to improvement in renal venous hypertension; on the other hand, her parenchymal renal disease may be bad enough that she needs dialysis long-term * DUF treatment today * will need outpatient dialysis on discharge (2) Stage 3b chronic kidney disease: Code(s): N18.32 - Chronic kidney disease, stage 3b Status: Chronic Assessment and Plan: * has fluctuated to extremes over the last few months * has been as low as 1.2mg/dl to as high as 3.0mg/dl * these fluctuations are related to her issues with volume overload, need for diuretics, suspected renal venous HTN, and recurrent infections/wounds * baseline creatinine seems to average out to 1.4 - 1.8mg/dl * due to diabetes . (3) Nephrotic syndrome: Code(s): N04.9 - Nephrotic syndrome with unspecified morphologic changes Status: Chronic Assessment and Plan: * noted in the last 4 months: * nephrotic range proteinuria (> 11 grams on this admission) * significant issues with edema/swelling * hypoalbuminemia (serum albumin as low as 1.5mg/dl in the past) * presumably secondary to poorly controlled diabetes in association with hypertension complicated by poor nutrition status * Adama-I on hold but she will eventually need this restarted * see #1 (4) CHF (congestive heart failure): Qualifiers: Heart failure chronicity: acute on chronic Heart failure type: unspecified Qualified Code(s): I50.9 - Heart failure, unspecified Code(s): I50.9 - Heart failure, unspecified Status: Chronic Assessment and Plan: * diastolic dysfunction noted by Echo * continue diuresis/ultrafiltration as tolerated (5) Hypertension: Code(s): I10 - Essential (primary) hypertension Status: Chronic Assessment and Plan: * poor control at baseline * noted to be in the 200s systolic on admission * better control currently * follow trend of hemodynamics with fluid removal (6) Chronic heel ulcer: Qualifiers: Laterality: right Non-pressure ulcer stage: unspecified non-pressure ulcer stage Qualified Code(s): L97.419 - Non-pressure chronic ulcer of right heel and midfoot with unspecified severity Code(s): L97.409 - Non-pressure chronic ulcer of unspecified heel and midfoot with unspecified severity Status: Chronic Assessment and Plan: * has been an issues for the last 2 - 3 months * was recommended to have right BKA by Vascular Surgery at [facility] (as well as by other surgeons at another hospital) but she refused this intervention * was treated with 6 weeks of IV antibiotics already (was being followed by [facility] Infectious Disease) * General Surgery following - s/p debridement (7) Diabetes mellitus with chronic kidney disease: Code(s): E11.22 - Type 2 diabetes mellitus with diabetic chronic kidney disease Status: Chronic Assessment and Plan: * noted poor control with associated complications (retinopathy, neuropathy, nephropathy) * follow accu-cheks * glycemic control as per hospitalists Will c
[2023-08-18] MEDS: EPOETIN ALFA-EPBX 10,000 UNITS/ML VIAL 10000 UNITS IV PUSH (10:53)
[2023-08-18 12:33] LABS: Glucose Point of Care 152 mg/dl (65-105)
--- NOTE | 2023-08-18 12:36 | PM.IMPN ---
Progress Note: A&P Assessment and Plan (1) Anemia: Code(s): D64.9 - Anemia, unspecified Status: Acute (2) Hypertension: Code(s): I10 - Essential (primary) hypertension Status: Chronic (3) Diabetes mellitus with chronic kidney disease: Code(s): E11.22 - Type 2 diabetes mellitus with diabetic chronic kidney disease Status: Chronic (4) Nephrotic syndrome: Code(s): N04.9 - Nephrotic syndrome with unspecified morphologic changes Status: Chronic (5) Stage 3b chronic kidney disease: Code(s): N18.32 - Chronic kidney disease, stage 3b Status: Chronic (6) Volume overload: Code(s): E87.70 - Fluid overload, unspecified Status: Chronic (7) Diabetic neuropathy: Code(s): E11.40 - Type 2 diabetes mellitus with diabetic neuropathy, unspecified Status: Chronic (8) Nephrotic range proteinuria: Code(s): R80.9 - Proteinuria, unspecified Status: Acute (9) Obstructive sleep apnea: Code(s): G47.33 - Obstructive sleep apnea (adult) (pediatric) Status: Acute (10) Acute hypoxic respiratory failure: Code(s): J96.01 - Acute respiratory failure with hypoxia Status: Acute (11) Diabetic nephropathy with proteinuria: Code(s): E11.21 - Type 2 diabetes mellitus with diabetic nephropathy Status: Chronic (12) Chronic heel ulcer: Qualifiers: Laterality: right Non-pressure ulcer stage: unspecified non-pressure ulcer stage Qualified Code(s): L97.419 - Non-pressure chronic ulcer of right heel and midfoot with unspecified severity Code(s): L97.409 - Non-pressure chronic ulcer of unspecified heel and midfoot with unspecified severity Status: Chronic (13) CHF (congestive heart failure): Qualifiers: Heart failure chronicity: acute on chronic Heart failure type: unspecified Qualified Code(s): I50.9 - Heart failure, unspecified Code(s): I50.9 - Heart failure, unspecified Status: Chronic (14) Malignant hypertension: Code(s): I10 - Essential (primary) hypertension Status: Acute (15) Pleural effusion: Code(s): J90 - Pleural effusion, not elsewhere classified Status: Acute Plan 32F w/ PMH HTN, IDDM w/ stage 3B CKD, nephrotic syndrome, EDD, HFpEF, morbid obesity, chronic AC, chronic ulcers, s/p left leg amputation, left eye blindness, presented with pain and hypoxia. She is an unfortunate lady with morbid obesity and DM since her teens. She came from a rehab facility with the above complaints. She was found to have an infected right heel ulcer which was debrided. Her new onset acute hypoxic respiratory failure appears to be due to CKD advancing to ESRD as she has nephrotic range proteinuria. A tunneled dialysis cath was placed. At one point she was up to 10L HFNC but she is down now to 3L NC. She also had intermittent episodes of obtundation in sync with hypoxia. That has resolved. Discharge back to SNF as soon as case workers can setup for dialysis. See nephrology notes. 1) fluid overload - trialed on lasix, which did not work. she is now on dialysis and improving slowly. - nephrotic syndrome. - previous echo showed diastolic heart failure - needs strict bp control, otherwise she will ct going into diastolic chf. sbp < 150 ideally. on coreg 12.5 mg bid. restart lisinopril 20 mg/day. prn hydralazine if sbp > 150. 2) acute hypoxic respiratory failure on admission, now chronic - up to 10L at one point. she is now stabilized on 3L NC. she did have some pulmonary edema and now that is improved. will need o2 on discharge - ABG w/o hypercapnia 3) CKD stage IIIB w/ nephrotic syndrome likely 2/2 DM, now on dialysis - nephrology consulted. could not take fluid off with aggressive diuretics so started dialysis after placement of tunnelled right IJ catheter on 08/15. received ultrafiltration 4L again on 08/16 which she tolerated and now her o2 requirement is down. - CTM.
[2023-08-18] MEDS: ASCORBIC ACID 500 MG TABLET PO ×2 (12:44→17:22)
[2023-08-18] MEDS: POTASSIUM CHLORIDE 20 MEQ ER TABLET PO (12:44)
[2023-08-18] MEDS: MULTIVITAMINS THERAPEUTIC TAB (*BKC) 1 TABLET PO (12:45)
[2023-08-18] MEDS: carvediloL 12.5 MG TABLET PO ×2 (12:45→20:54)
[2023-08-18] MEDS: FERROUS SULFATE 325 MG TABLET DR BY MOUTH (12:45)
[2023-08-18] MEDS: lisinopriL 20 MG TABLET PO (12:46)
--- NOTE | 2023-08-18 13:25 | PC.NURSE ---
1215- returned to room post dialysis treatment-
[2023-08-18] MEDS: COLLAGENASE OINT 30 GM TUBE 1 APPLIC TOPICAL (17:22)
[2023-08-18] MEDS: EUCERIN CREAM 120 GM JAR 1 APPLIC TOPICAL (17:22)
[2023-08-18 18:16] LABS: Glucose Point of Care 140 mg/dl (65-105)
--- NOTE | 2023-08-18 18:37 | PC.NURSE ---
pt med/tele status - transferred to room 249 via bed accompanied by staff O2 at 3 l/nc report given to Julia SAMUEL- belongings with pt
[2023-08-18 19:26] LABS: Adenovirus DNA Not Detected (Not Detected); Chlamydophila pneumoniae Not Detected (Not Detected); Coronavirus 229E Not Detected (Not Detected); Coronavirus HKU1 Not Detected (Not Detected); Coronavirus NL63 Not Detected (Not Detected); Coronavirus OC43 Not Detected (Not Detected); Human Metapneumovirus Not Detected (Not Detected); Human Parainfluenza Virus 1 Not Detected (Not Detected); Human Parainfluenza Virus 2 Not Detected (Not Detected); Human Parainfluenza Virus 3 Not Detected (Not Detected); Human Parainfluenza Virus 4 Not Detected (Not Detected); Human RSV B Not Detected (Not Detected); Influenza A Not Detected (Not Detected); Influenza B Not Detected (Not Detected); Mycoplasma pneumoniae Not Detected (Not Detected); Rhinovirus/Enterovirus Not Detected (Not Detected)
[2023-08-18 20:49] LABS: Glucose Point of Care 159 mg/dl (65-105)
[2023-08-18] MEDS: traMADol HCL (*CRX) 50 MG TABLET PO (20:54)
[2023-08-19] VITALS (15 sets, daily range): BP systolic 146–177; BP diastolic 78–87; PULSE 76–85; RESP 14–20; TEMP 36.2–36.8; O2SAT 93–98
[2023-08-19 05:55] LABS: Basophils Percent Auto 0.3 % (0.2-1.2); Eosinophils Absolute Auto 0.8 K/mm3 (0-0.3); Eosinophils Percent Auto 8.3 % (0-4.4); Hematocrit 26.8 % (37.0-47.0); Hemoglobin 8.2 g/dL (12.0-15.0); Immature Granulocyte Absolute 0.09 K/mm3 (0.00-0.031); Immature Granulocyte Percent A 0.9 % (0-0.5); Lymphocytes Absolute Auto 1.65 K/mm3 (0.9-3.2); Lymphocytes Percent Auto 16.9 % (18.3-44.2); Mean Corpuscular HGB Conc 30.6 g/dl (32-36); Mean Corpuscular Hemoglobin 29.7 pg (26-34); Mean Corpuscular Volume 97.1 fl (80-100); Mean Platelet Volume 10.8 fl (7.4-10.4); Monocytes Absolute Auto 0.8 K/mm3 (0.1-0.6); Monocytes Percent Auto 8.4 % (2.6-8.5); Neutrophils Absolute Auto 6.4 K/mm3 (1.3-6.7); Neutrophils Percent Auto 65.2 % (45.5-73.1); Nucleated Red Blood Cells Absolute Auto 0.1 K/mm3 (0.0-0.012); Nucleated Red Blood Cells Perc 0.7 % (0.0-0.2); Platelet Count Result 381 k/mm3 (150-375); Red Blood Count 2.76 M/mm3 (4.2-5.4); Red Cell Distribution Width 16.1 % (11.5-14.5); White Blood Count 9.8 K/mm3 (4.5-10.0)
[2023-08-19 06:13] LABS: Alanine Aminotransferase 31 U/L (6-35); Albumin Level 2.8 g/dL (3.5-5.1); Alkaline Phosphatase 167 U/L (38-126); Anion Gap 4 mmol/L (8-16); Aspartate Amino Transferase 64 U/L (14-36); Bilirubin,Total 0.5 mg/dL (0.2-1.3); Blood Urea Nitrogen 27 mg/dL (7-17); Calcium 8.1 mg/dL (8.4-10.2); Carbon Dioxide 33 mmol/L (22-30); Chloride 107 mmol/L (98-107); Estimated CRCL calculation 38 ml/min; Estimated Glomerular Filt Rate 25; Glucose 126 mg/dL (65-110); Phosphorus 3.5 mg/dL (2.5-4.5); Potassium 3.5 mmol/L (3.4-5.0); Sodium 144 mmol/L (137-145)
[2023-08-19 08:42] LABS: Glucose Point of Care 124 mg/dl (65-105)
[2023-08-19] MEDS: ASCORBIC ACID 500 MG TABLET PO ×2 (08:52→16:59)
[2023-08-19] MEDS: lisinopriL 20 MG TABLET PO (08:52)
[2023-08-19] MEDS: MULTIVITAMINS THERAPEUTIC TAB (*BKC) 1 TABLET PO (08:52)
[2023-08-19] MEDS: FERROUS SULFATE 325 MG TABLET DR BY MOUTH (08:52)
[2023-08-19] MEDS: carvediloL 12.5 MG TABLET PO ×2 (08:52→21:21)
[2023-08-19] MEDS: BUMETANIDE 1 MG TABLET 2 MG PO (08:53)
[2023-08-19] MEDS: POTASSIUM CHLORIDE 20 MEQ ER TABLET PO (08:53)
[2023-08-19] MEDS: EUCERIN CREAM 120 GM JAR 1 APPLIC TOPICAL (08:54)
[2023-08-19] MEDS: COLLAGENASE OINT 30 GM TUBE 1 APPLIC TOPICAL (08:54)
--- NOTE | 2023-08-19 11:15 | PM.PNNEP ---
Progress Note: A&P Assessment and Plan (1) Volume overload: Code(s): E87.70 - Fluid overload, unspecified Status: Chronic Assessment and Plan: only mild improvement with conservative therapy anasarca noted on presentation felt to be secondary to nephrotic range proteinuria/nephrotic syndrome and diastolic heart failure off amlodipine 24hour urine showed a GFR of only 12cc/min with a creatinine of 2.9mg/dl.... sometimes there is improvement in the kidney function when fluid is removed due to improvement in renal venous hypertension; on the other hand, her parenchymal renal disease may be bad enough that she needs dialysis long-term DUF yesterday; plan HD tomorrow will need outpatient dialysis on discharge (2) Stage 3b chronic kidney disease: Code(s): N18.32 - Chronic kidney disease, stage 3b Status: Chronic Assessment and Plan: has fluctuated to extremes over the last few months has been as low as 1.2mg/dl to as high as 3.0mg/dl these fluctuations are related to her issues with volume overload, need for diuretics, suspected renal venous HTN, and recurrent infections/wounds baseline creatinine seems to average out to 1.4 - 1.8mg/dl due to diabetes and hypertension (3) Nephrotic syndrome: Code(s): N04.9 - Nephrotic syndrome with unspecified morphologic changes Status: Chronic Assessment and Plan: noted in the last 4 months: nephrotic range proteinuria (> 11 grams on this admission) significant issues with edema/swelling hypoalbuminemia (serum albumin as low as 1.5mg/dl in the past) presumably secondary to poorly controlled diabetes in association with hypertension complicated by poor nutrition status Adama-I on hold but she will eventually need this restarted see #1 (4) CHF (congestive heart failure): Qualifiers: Heart failure chronicity: acute on chronic Heart failure type: unspecified Qualified Code(s): I50.9 - Heart failure, unspecified Code(s): I50.9 - Heart failure, unspecified Status: Chronic Assessment and Plan: diastolic dysfunction noted by Echo continue diuresis/ultrafiltration as tolerated (5) Hypertension: Code(s): I10 - Essential (primary) hypertension Status: Chronic Assessment and Plan: poor control at baseline noted to be in the 200s systolic on admission better control currently follow trend of hemodynamics with fluid removal (6) Chronic heel ulcer: Qualifiers: Laterality: right Non-pressure ulcer stage: unspecified non-pressure ulcer stage Qualified Code(s): L97.419 - Non-pressure chronic ulcer of right heel and midfoot with unspecified severity Code(s): L97.409 - Non-pressure chronic ulcer of unspecified heel and midfoot with unspecified severity Status: Chronic Assessment and Plan: has been an issues for the last 2 - 3 months was recommended to have right BKA by Vascular Surgery at [facility] (as well as by other surgeons at another hospital) but she refused this intervention was treated with 6 weeks of IV antibiotics already (was being followed by [facility] Infectious Disease) General Surgery following - s/p debridement (7) Diabetes mellitus with chronic kidney disease: Code(s): E11.22 - Type 2 diabetes mellitus with diabetic chronic kidney disease Status: Chronic Assessment and Plan: noted poor control with associated complications (retinopathy, neuropathy, nephropathy) follow accu-cheks glycemic control as per hospitalists Not opposed to discharge from renal perspective once medically stable and outpatient dialysis schedule/facility is finalized. Will continue to follow. Subjective Date/time seen: 08/19/23 11:15 Interval history: Follow-up for chronic kidney disease, volume overload/anasarca, and nephrotic syndrome. Tolerated DUF treatment yesterday without any issues or problems; breathing and fluid stat
--- NOTE | 2023-08-19 11:15 | P.PNNP_ITS ---
Progress Note: A&P Assessment and Plan (1) Volume overload: Code(s): E87.70 - Fluid overload, unspecified Status: Chronic Assessment and Plan: * only mild improvement with conservative therapy * anasarca noted on presentation * felt to be secondary to nephrotic range proteinuria/nephrotic syndrome and diastolic heart failure * off amlodipine * 24hour urine showed a GFR of only 12cc/min with a creatinine of 2.9mg/dl.... * sometimes there is improvement in the kidney function when fluid is removed due to improvement in renal venous hypertension; on the other hand, her parenchymal renal disease may be bad enough that she needs dialysis long-term * DUF yesterday; plan HD tomorrow * will need outpatient dialysis on discharge (2) Stage 3b chronic kidney disease: Code(s): N18.32 - Chronic kidney disease, stage 3b Status: Chronic Assessment and Plan: * has fluctuated to extremes over the last few months * has been as low as 1.2mg/dl to as high as 3.0mg/dl * these fluctuations are related to her issues with volume overload, need for diuretics, suspected renal venous HTN, and recurrent infections/wounds * baseline creatinine seems to average out to 1.4 - 1.8mg/dl * due to diabetes and hypertension (3) Nephrotic syndrome: Code(s): N04.9 - Nephrotic syndrome with unspecified morphologic changes Status: Chronic Assessment and Plan: * noted in the last 4 months: * nephrotic range proteinuria (> 11 grams on this admission) * significant issues with edema/swelling * hypoalbuminemia (serum albumin as low as 1.5mg/dl in the past) * presumably secondary to poorly controlled diabetes in association with hypertension complicated by poor nutrition status * Adama-I on hold but she will eventually need this restarted * see #1 (4) CHF (congestive heart failure): Qualifiers: Heart failure chronicity: acute on chronic Heart failure type: unspecified Qualified Code(s): I50.9 - Heart failure, unspecified Code(s): I50.9 - Heart failure, unspecified Status: Chronic Assessment and Plan: * diastolic dysfunction noted by Echo * continue diuresis/ultrafiltration as tolerated (5) Hypertension: Code(s): I10 - Essential (primary) hypertension Status: Chronic Assessment and Plan: * poor control at baseline * noted to be in the 200s systolic on admission * better control currently * follow trend of hemodynamics with fluid removal (6) Chronic heel ulcer: Qualifiers: Laterality: right Non-pressure ulcer stage: unspecified non-pressure ulcer stage Qualified Code(s): L97.419 - Non-pressure chronic ulcer of right heel and midfoot with unspecified severity Code(s): L97.409 - Non-pressure chronic ulcer of unspecified heel and midfoot with unspecified severity Status: Chronic Assessment and Plan: * has been an issues for the last 2 - 3 months * was recommended to have right BKA by Vascular Surgery at [facility] (as well as by other surgeons at another hospital) but she refused this intervention * was treated with 6 weeks of IV antibiotics already (was being followed by [facility] Infectious Disease) * General Surgery following - s/p debridement (7) Diabetes mellitus with chronic kidney disease: Code(s): E11.22 - Type 2 diabetes mellitus with diabetic chronic kidney disease Status: Chronic Assessment and Plan: * noted poor control with associated complications (retinopathy, neuropathy, nephropathy) * follow accu-cheks * glycemic control as per ho
[2023-08-19 12:07] LABS: Glucose Point of Care 127 mg/dl (65-105)
[2023-08-19 12:44] LABS: Creatinine, Random Urine 47 mg/dL (20-275); Total Protein/Creatinine Ratio 6468 mg/g creat (24-184)
--- NOTE | 2023-08-19 13:11 | PC.NURSE ---
On 08/19/23, the student, [Germania Orosco], provided care and completed [facility] documentation on this patient. I have reviewed the student's documentation and agree with the findings.
[2023-08-19 16:49] LABS: Glucose Point of Care 107 mg/dl (65-105)
[2023-08-19 17:42] LABS: Hepatitis B Core Ab Total Nonreactive (Nonreactive)
[2023-08-19 20:46] LABS: Glucose Point of Care 199 mg/dl (65-105)
[2023-08-19] MEDS: traMADol HCL (*CRX) 50 MG TABLET PO (21:26)
[2023-08-20] VITALS (29 sets, daily range): BP systolic 145–170; BP diastolic 9–102; PULSE 74–90; RESP 16–22; TEMP 35.6–37.3; O2SAT 97–100
[2023-08-20 05:20] LABS: Basophils Percent Auto 0.4 % (0.2-1.2); Eosinophils Absolute Auto 0.6 K/mm3 (0-0.3); Eosinophils Percent Auto 6.3 % (0-4.4); Hematocrit 27.6 % (37.0-47.0); Hemoglobin 8.1 g/dL (12.0-15.0); Immature Granulocyte Absolute 0.12 K/mm3 (0.00-0.031); Immature Granulocyte Percent A 1.2 % (0-0.5); Lymphocytes Absolute Auto 1.63 K/mm3 (0.9-3.2); Lymphocytes Percent Auto 16.3 % (18.3-44.2); Mean Corpuscular HGB Conc 29.3 g/dl (32-36); Mean Corpuscular Hemoglobin 29.5 pg (26-34); Mean Corpuscular Volume 100.4 fl (80-100); Mean Platelet Volume 10.9 fl (7.4-10.4); Monocytes Absolute Auto 0.8 K/mm3 (0.1-0.6); Monocytes Percent Auto 8.1 % (2.6-8.5); Neutrophils Absolute Auto 6.8 K/mm3 (1.3-6.7); Neutrophils Percent Auto 67.7 % (45.5-73.1); Nucleated Red Blood Cells Absolute Auto 0.1 K/mm3 (0.0-0.012); Nucleated Red Blood Cells Perc 0.8 % (0.0-0.2); Platelet Count Result 402 k/mm3 (150-375); Red Blood Count 2.75 M/mm3 (4.2-5.4); Red Cell Distribution Width 16.5 % (11.5-14.5)
[2023-08-20 05:31] LABS: Alanine Aminotransferase 58 U/L (6-35); Alkaline Phosphatase 216 U/L (38-126); Anion Gap 3 mmol/L (8-16); Aspartate Amino Transferase 139 U/L (14-36); Bilirubin,Total 0.5 mg/dL (0.2-1.3); Blood Urea Nitrogen 29 mg/dL (7-17); Calcium 8.1 mg/dL (8.4-10.2); Carbon Dioxide 35 mmol/L (22-30); Chloride 107 mmol/L (98-107); Estimated CRCL calculation 38 ml/min; Estimated Glomerular Filt Rate 25; Glucose 196 mg/dL (65-110); Magnesium 1.9 mg/dL (1.6-2.3); Phosphorus 3.5 mg/dL (2.5-4.5); Potassium 3.7 mmol/L (3.4-5.0); Sodium 145 mmol/L (137-145)
[2023-08-20 05:46] LABS: Anisocytosis 1+ (NORMAL); Hypochromasia 2+ (NORMAL); Platelet Estimate Adequate (Adequate); Schistocytes None Seen (NORMAL); Target Cells 1+ (NORMAL)
[2023-08-20 08:15] LABS: Glucose Point of Care 164 mg/dl (65-105)
--- NOTE | 2023-08-20 08:15 | PC.NURSE ---
To Dialysis via bed.
--- NOTE | 2023-08-20 10:38 | P.PNIM_ITS ---
Progress Note: A&P Assessment and Plan (1) Anemia: Code(s): D64.9 - Anemia, unspecified Status: Acute (2) Altered mental status: Code(s): R41.82 - Altered mental status, unspecified Status: Acute (3) Hypertension: Code(s): I10 - Essential (primary) hypertension Status: Chronic (4) Diabetes mellitus with chronic kidney disease: Code(s): E11.22 - Type 2 diabetes mellitus with diabetic chronic kidney disease Status: Chronic (5) Nephrotic syndrome: Code(s): N04.9 - Nephrotic syndrome with unspecified morphologic changes Status: Chronic (6) Stage 3b chronic kidney disease: Code(s): N18.32 - Chronic kidney disease, stage 3b Status: Chronic (7) Volume overload: Code(s): E87.70 - Fluid overload, unspecified Status: Chronic (8) Chronic 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: Code(s): 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 Status: Chronic (9) Diabetic neuropathy: Code(s): E11.40 - Type 2 diabetes mellitus with diabetic neuropathy, unspecified Status: Chronic (10) Subtherapeutic international normalized ratio (INR): Code(s): R79.1 - Abnormal coagulation profile Status: Acute (11) Nephrotic range proteinuria: Code(s): R80.9 - Proteinuria, unspecified Status: Acute (12) Obstructive sleep apnea: Code(s): G47.33 - Obstructive sleep apnea (adult) (pediatric) Status: Acute (13) Acute hypoxic respiratory failure: Code(s): J96.01 - Acute respiratory failure with hypoxia Status: Acute (14) Diabetic nephropathy with proteinuria: Code(s): E11.21 - Type 2 diabetes mellitus with diabetic nephropathy Status: Chronic (15) Chronic heel ulcer: Qualifiers: Laterality: right Non-pressure ulcer stage: unspecified non-pressure ulcer stage Qualified Code(s): L97.419 - Non-pressure chronic ulcer of right heel and midfoot with unspecified severity Code(s): L97.409 - Non-pressure chronic ulcer of unspecified heel and midfoot with unspecified severity Status: Chronic (16) CHF (congestive heart failure): Qualifiers: Heart failure chronicity: acute on chronic Heart failure type: unspecified Qualified Code(s): I50.9 - Heart failure, unspecified Code(s): I50.9 - Heart failure, unspecified Status: Chronic Plan 32F w/ PMH HTN, IDDM w/ stage 3B CKD, nephrotic syndrome, EDD, HFpEF, morbid obesity, chronic AC, chronic ulcers, s/p left leg amputation, left eye blindness, presented with pain and hypoxia. She is an unfortunate lady with morbid obesity and DM since her teens. She came from a rehab facility with the above complaints. She was found to have an infected right heel ulcer which was debrided. Her new onset acute hypoxic respiratory failure appears to be due to CKD advancing to ESRD as she has nephrotic range proteinuria. A tunneled dialysis cath was placed. At one point she was up to 10L HFNC but she is down now to 3L NC. She also had intermittent episodes of obtundation in sync with hypoxia. That has resolved. Discharge back to SNF as soon as case workers can setup for dialysis. See nephrology notes. 1) fluid overload - trialed on lasix, which did not work. she is now on dialysis and improving slowly. - nephrotic syndrome. - previous echo showed diastolic heart failure - needs strict bp control, otherwise she will ct going into diastolic chf. sbp < 150 ideally. on coreg 12.5 mg bid. restart lisinopril 20 mg/day. prn hydralazine if sbp > 150. - ct lisinopril. BP only went down to
[2023-08-20] MEDS: EPOETIN ALFA-EPBX 10,000 UNITS/ML VIAL 10000 UNITS IV PUSH (11:00)
--- NOTE | 2023-08-20 11:47 | PM.PNNEP ---
Progress Note: A&P Assessment and Plan (1) Volume overload: Code(s): E87.70 - Fluid overload, unspecified Status: Chronic Assessment and Plan: only mild improvement with conservative therapy anasarca noted on presentation felt to be secondary to nephrotic range proteinuria/nephrotic syndrome and diastolic heart failure off amlodipine 24hour urine showed a GFR of only 12cc/min with a creatinine of 2.9mg/dl.... sometimes there is improvement in the kidney function when fluid is removed due to improvement in renal venous hypertension; on the other hand, her parenchymal renal disease may be bad enough that she needs dialysis long-term HD today will need outpatient dialysis on discharge -- this is being arranged (2) Stage 3b chronic kidney disease: Code(s): N18.32 - Chronic kidney disease, stage 3b Status: Chronic Assessment and Plan: has fluctuated to extremes over the last few months has been as low as 1.2mg/dl to as high as 3.0mg/dl these fluctuations are related to her issues with volume overload, need for diuretics, suspected renal venous HTN, and recurrent infections/wounds baseline creatinine seems to average out to 1.4 - 1.8mg/dl due to diabetes and hypertension (3) Nephrotic syndrome: Code(s): N04.9 - Nephrotic syndrome with unspecified morphologic changes Status: Chronic Assessment and Plan: noted in the last 4 months: nephrotic range proteinuria (> 11 grams on this admission) significant issues with edema/swelling hypoalbuminemia (serum albumin as low as 1.5mg/dl in the past) presumably secondary to poorly controlled diabetes in association with hypertension complicated by poor nutrition status Adama-I on hold but she will eventually need this restarted see #1 (4) CHF (congestive heart failure): Qualifiers: Heart failure chronicity: acute on chronic Heart failure type: unspecified Qualified Code(s): I50.9 - Heart failure, unspecified Code(s): I50.9 - Heart failure, unspecified Status: Chronic Assessment and Plan: diastolic dysfunction noted by Echo continue diuresis/ultrafiltration as tolerated (5) Hypertension: Code(s): I10 - Essential (primary) hypertension Status: Chronic Assessment and Plan: poor control at baseline noted to be in the 200s systolic on admission better control follow trend of hemodynamics with fluid removal suspect may titration of BP medications as an outpatient (6) Chronic heel ulcer: Qualifiers: Laterality: right Non-pressure ulcer stage: unspecified non-pressure ulcer stage Qualified Code(s): L97.419 - Non-pressure chronic ulcer of right heel and midfoot with unspecified severity Code(s): L97.409 - Non-pressure chronic ulcer of unspecified heel and midfoot with unspecified severity Status: Chronic Assessment and Plan: has been an issues for the last 2 - 3 months was recommended to have right BKA by Vascular Surgery at [facility] (as well as by other surgeons at another hospital) but she refused this intervention was treated with 6 weeks of IV antibiotics already (was being followed by [facility] Infectious Disease) completed 2 weeks of IV antibiotics during this hospitalization General Surgery following - s/p debridement (7) Diabetes mellitus with chronic kidney disease: Code(s): E11.22 - Type 2 diabetes mellitus with diabetic chronic kidney disease Status: Chronic Assessment and Plan: noted poor control with associated complications (retinopathy, neuropathy, nephropathy) follow accu-cheks glycemic control as per hospitalists Not opposed to discharge from renal perspective once medically stable and outpatient dialysis schedule/facility is finalized. Will continue to follow. Subjective Date/time seen: 08/20/23 11:47 Interval history: Follow-up for chronic kidney disease, volume overload/anasarca
--- NOTE | 2023-08-20 11:47 | P.PNNP_ITS ---
Progress Note: A&P Assessment and Plan (1) Volume overload: Code(s): E87.70 - Fluid overload, unspecified Status: Chronic Assessment and Plan: * only mild improvement with conservative therapy * anasarca noted on presentation * felt to be secondary to nephrotic range proteinuria/nephrotic syndrome and diastolic heart failure * off amlodipine * 24hour urine showed a GFR of only 12cc/min with a creatinine of 2.9mg/dl.... * sometimes there is improvement in the kidney function when fluid is removed due to improvement in renal venous hypertension; on the other hand, her parenchymal renal disease may be bad enough that she needs dialysis long-term * HD today * will need outpatient dialysis on discharge -- this is being arranged (2) Stage 3b chronic kidney disease: Code(s): N18.32 - Chronic kidney disease, stage 3b Status: Chronic Assessment and Plan: * has fluctuated to extremes over the last few months * has been as low as 1.2mg/dl to as high as 3.0mg/dl * these fluctuations are related to her issues with volume overload, need for diuretics, suspected renal venous HTN, and recurrent infections/wounds * baseline creatinine seems to average out to 1.4 - 1.8mg/dl * due to diabetes and hypertension (3) Nephrotic syndrome: Code(s): N04.9 - Nephrotic syndrome with unspecified morphologic changes Status: Chronic Assessment and Plan: * noted in the last 4 months: * nephrotic range proteinuria (> 11 grams on this admission) * significant issues with edema/swelling * hypoalbuminemia (serum albumin as low as 1.5mg/dl in the past) * presumably secondary to poorly controlled diabetes in association with hypertension complicated by poor nutrition status * Adama-I on hold but she will eventually need this restarted * see #1 (4) CHF (congestive heart failure): Qualifiers: Heart failure chronicity: acute on chronic Heart failure type: unspecified Qualified Code(s): I50.9 - Heart failure, unspecified Code(s): I50.9 - Heart failure, unspecified Status: Chronic Assessment and Plan: * diastolic dysfunction noted by Echo * continue diuresis/ultrafiltration as tolerated (5) Hypertension: Code(s): I10 - Essential (primary) hypertension Status: Chronic Assessment and Plan: * poor control at baseline * noted to be in the 200s systolic on admission * better control * follow trend of hemodynamics with fluid removal * suspect may titration of BP medications as an outpatient (6) Chronic heel ulcer: Qualifiers: Laterality: right Non-pressure ulcer stage: unspecified non-pressure ulcer stage Qualified Code(s): L97.419 - Non-pressure chronic ulcer of right heel and midfoot with unspecified severity Code(s): L97.409 - Non-pressure chronic ulcer of unspecified heel and midfoot with unspecified severity Status: Chronic Assessment and Plan: * has been an issues for the last 2 - 3 months * was recommended to have right BKA by Vascular Surgery at [facility] (as well as by other surgeons at another hospital) but she refused this intervention * was treated with 6 weeks of IV antibiotics already (was being followed by [facility] Infectious Disease) * completed 2 weeks of IV antibiotics during this hospitalization * General Surgery following - s/p debridement (7) Diabetes mellitus with chronic kidney disease: Code(s): E11.22 - Type 2 diabetes mellitus with diabetic chronic kidney disease Status: Chronic Assessment and Plan: * noted poor control with
[2023-08-20] MEDS: HEPARIN SODIUM 1,000 UNITS/ML VIAL 5000 UNITS IV PUSH (11:54)
--- NOTE | 2023-08-20 12:05 | PC.NURSE ---
Returned from Dialysis via bed.
[2023-08-20 12:13] LABS: Glucose Point of Care 129 mg/dl (65-105)
[2023-08-20] MEDS: carvediloL 12.5 MG TABLET PO ×2 (12:13→20:04)
[2023-08-20] MEDS: lisinopriL 20 MG TABLET PO (12:13)
[2023-08-20] MEDS: FERROUS SULFATE 325 MG TABLET DR BY MOUTH (12:13)
[2023-08-20] MEDS: ASCORBIC ACID 500 MG TABLET PO ×2 (12:13→17:26)
[2023-08-20] MEDS: BUMETANIDE 1 MG TABLET 2 MG PO (12:13)
[2023-08-20] MEDS: MULTIVITAMINS THERAPEUTIC TAB (*BKC) 1 TABLET PO (12:14)
[2023-08-20] MEDS: POTASSIUM CHLORIDE 20 MEQ ER TABLET PO (12:14)
[2023-08-20] MEDS: EUCERIN CREAM 120 GM JAR 1 APPLIC TOPICAL (12:15)
[2023-08-20] MEDS: COLLAGENASE OINT 30 GM TUBE 1 APPLIC TOPICAL (12:15)
[2023-08-20 17:07] LABS: Glucose Point of Care 161 mg/dl (65-105)
[2023-08-20 20:03] LABS: Glucose Point of Care 194 mg/dl (65-105)
[2023-08-20] MEDS: traMADol HCL (*CRX) 50 MG TABLET PO (22:13)
[2023-08-21] VITALS (29 sets, daily range): BP systolic 140–174; BP diastolic 78–100; PULSE 68–82; RESP 17–20; TEMP 36.1–37; O2SAT 94–100
[2023-08-21 05:11] LABS: Basophils Percent Auto 0.4 % (0.2-1.2); Eosinophils Absolute Auto 0.8 K/mm3 (0-0.3); Eosinophils Percent Auto 7.4 % (0-4.4); Hematocrit 27.5 % (37.0-47.0); Immature Granulocyte Absolute 0.15 K/mm3 (0.00-0.031); Immature Granulocyte Percent A 1.4 % (0-0.5); Lymphocytes Absolute Auto 2.17 K/mm3 (0.9-3.2); Lymphocytes Percent Auto 20.8 % (18.3-44.2); Mean Corpuscular HGB Conc 29.1 g/dl (32-36); Mean Corpuscular Hemoglobin 29.2 pg (26-34); Mean Corpuscular Volume 100.4 fl (80-100); Mean Platelet Volume 10.4 fl (7.4-10.4); Monocytes Absolute Auto 0.9 K/mm3 (0.1-0.6); Monocytes Percent Auto 8.4 % (2.6-8.5); Neutrophils Absolute Auto 6.4 K/mm3 (1.3-6.7); Neutrophils Percent Auto 61.6 % (45.5-73.1); Nucleated Red Blood Cells Absolute Auto 0.1 K/mm3 (0.0-0.012); Nucleated Red Blood Cells Perc 1.1 % (0.0-0.2); Platelet Count Result 420 k/mm3 (150-375); Red Blood Count 2.74 M/mm3 (4.2-5.4); Red Cell Distribution Width 17.2 % (11.5-14.5); White Blood Count 10.4 K/mm3 (4.5-10.0)
[2023-08-21 05:29] LABS: Alanine Aminotransferase 86 U/L (6-35); Albumin Level 2.9 g/dL (3.5-5.1); Alkaline Phosphatase 229 U/L (38-126); Anion Gap 2 mmol/L (8-16); Aspartate Amino Transferase 146 U/L (14-36); Bilirubin,Total 0.6 mg/dL (0.2-1.3); Blood Urea Nitrogen 22 mg/dL (7-17); Calcium 8.4 mg/dL (8.4-10.2); Carbon Dioxide 33 mmol/L (22-30); Chloride 107 mmol/L (98-107); Estimated CRCL calculation 43 ml/min; Estimated Glomerular Filt Rate 29; Glucose 140 mg/dL (65-110); Magnesium 1.9 mg/dL (1.6-2.3); Phosphorus 3.1 mg/dL (2.5-4.5); Potassium 3.8 mmol/L (3.4-5.0); Sodium 142 mmol/L (137-145)
[2023-08-21 05:56] LABS: Anisocytosis 1+ (NORMAL); Hypochromasia 2+ (NORMAL); Macrocytosis 1+ (NORMAL); Platelet Estimate Increased (Adequate)
[2023-08-21 05:57] LABS: Schistocytes None Seen (NORMAL)
[2023-08-21 08:09] LABS: Glucose Point of Care 136 mg/dl (65-105)
[2023-08-21] MEDS: COLLAGENASE OINT 30 GM TUBE 1 APPLIC TOPICAL (09:56)
[2023-08-21] MEDS: EUCERIN CREAM 120 GM JAR 1 APPLIC TOPICAL (09:56)
--- NOTE | 2023-08-21 10:17 | PCNFU ---
Nutrition Follow-Up Complete: Inadequate oral intake related to loss of appetite as evidenced by poor intake of meals since admission Goal: Improve PO intake to at least 50% average after diet is advanced - goal is being met Pt current nutrition is Renal diet. Fluid restriction 2000 ml/day. Intakes improved to 50-100% meals. Nutrition recommendation: Continue with same nutrition care plan. Agree with orders Last recorded weight is 125.6 kg. Bowel Motility: Last BM 08-20-23 Labs Reviewed: 8.0, Hct 27.5, Alb 2.9, GFR 29, BUN 22, Cre 2.4, GLU 140 Meds Noted: Bumex, Kcl Skin: R heel ulcer Additional Notes: Pt will likely be having outpatient dialysis. Pt was asleep when seen to offer renal diet education on two attempts. Left renal diet education materials at bedside. Please call if any questions. Monitoring intakes, weights, labs, plan of care Follow up in 5 days
[2023-08-21] MEDS: TOLNAFTATE 1% POWDER 45 GM BTL 1 APPLIC TOPICAL (11:30)
[2023-08-21 12:24] LABS: Glucose Point of Care 133 mg/dl (65-105)
--- NOTE | 2023-08-21 13:09 | PC.NURSE ---
On 08/21/23, the student, [Meño Hong], provided care and completed [facility] documentation on this patient. I have reviewed the student's documentation and agree with the findings.
--- NOTE | 2023-08-21 14:00 | P.PNNP_ITS ---
Progress Note: A&P Assessment and Plan (1) Volume overload: Code(s): E87.70 - Fluid overload, unspecified Status: Chronic Assessment and Plan: * only mild improvement with conservative therapy * anasarca noted on presentation * felt to be secondary to nephrotic range proteinuria/nephrotic syndrome and diastolic heart failure * off amlodipine * 24hour urine showed a GFR of only 12cc/min with a creatinine of 2.9mg/dl.... * sometimes there is improvement in the kidney function when fluid is removed due to improvement in renal venous hypertension; on the other hand, her parenchymal renal disease may be bad enough that she needs dialysis long-term * HD yesterday and DUF * noted outpatient schedule to be T/T/S -- plan next HD treatment on Friday (2) Stage 3b chronic kidney disease: Code(s): N18.32 - Chronic kidney disease, stage 3b Status: Chronic Assessment and Plan: * has fluctuated to extremes over the last few months * has been as low as 1.2mg/dl to as high as 3.0mg/dl * these fluctuations are related to her issues with volume overload, need for diuretics, suspected renal venous HTN, and recurrent infections/wounds * baseline creatinine seems to average out to 1.4 - 1.8mg/dl * due to diabetes and hypertension (3) Nephrotic syndrome: Code(s): N04.9 - Nephrotic syndrome with unspecified morphologic changes Status: Chronic Assessment and Plan: * noted in the last 4 months: * nephrotic range proteinuria (> 11 grams on this admission) * significant issues with edema/swelling * hypoalbuminemia (serum albumin as low as 1.5mg/dl in the past) * presumably secondary to poorly controlled diabetes in association with hypertension complicated by poor nutritional status * restarted on GABE-I -- titrate as needed * see #1 (4) CHF (congestive heart failure): Qualifiers: Heart failure chronicity: acute on chronic Heart failure type: unspecified Qualified Code(s): I50.9 - Heart failure, unspecified Code(s): I50.9 - Heart failure, unspecified Status: Chronic Assessment and Plan: * diastolic dysfunction noted by Echo * continue diuresis/ultrafiltration as tolerated (5) Hypertension: Code(s): I10 - Essential (primary) hypertension Status: Chronic Assessment and Plan: * poor control at baseline * noted to be in the 200s systolic on admission * better control * follow trend of hemodynamics with fluid removal * suspect may titration of BP medications as an outpatient (6) Chronic heel ulcer: Qualifiers: Laterality: right Non-pressure ulcer stage: unspecified non-pressure ulcer stage Qualified Code(s): L97.419 - Non-pressure chronic ulcer of right heel and midfoot with unspecified severity Code(s): L97.409 - Non-pressure chronic ulcer of unspecified heel and midfoot with unspecified severity Status: Chronic Assessment and Plan: * has been an issue for the last 2 - 3 months * was recommended to have right BKA by Vascular Surgery at [facility] (as well as by other surgeons at another hospital) but she refused this intervention * was treated with 6 weeks of IV antibiotics already (was being followed by [facility] Infectious Disease) * completed 2 weeks of IV antibiotics during this hospitalization * General Surgery following - s/p debridement (7) Diabetes mellitus with chronic kidney disease: Code(s): E11.22 - Type 2 diabetes mellitus with diabetic chronic kidney disease Status: Chronic Assessment and Plan: * noted poor control wi
--- NOTE | 2023-08-21 14:00 | PM.PNNEP ---
Progress Note: A&P Assessment and Plan (1) Volume overload: Code(s): E87.70 - Fluid overload, unspecified Status: Chronic Assessment and Plan: only mild improvement with conservative therapy anasarca noted on presentation felt to be secondary to nephrotic range proteinuria/nephrotic syndrome and diastolic heart failure off amlodipine 24hour urine showed a GFR of only 12cc/min with a creatinine of 2.9mg/dl.... sometimes there is improvement in the kidney function when fluid is removed due to improvement in renal venous hypertension; on the other hand, her parenchymal renal disease may be bad enough that she needs dialysis long-term HD yesterday and NOLAN noted outpatient schedule to be T/T/S -- plan next HD treatment on Friday (2) Stage 3b chronic kidney disease: Code(s): N18.32 - Chronic kidney disease, stage 3b Status: Chronic Assessment and Plan: has fluctuated to extremes over the last few months has been as low as 1.2mg/dl to as high as 3.0mg/dl these fluctuations are related to her issues with volume overload, need for diuretics, suspected renal venous HTN, and recurrent infections/wounds baseline creatinine seems to average out to 1.4 - 1.8mg/dl due to diabetes and hypertension (3) Nephrotic syndrome: Code(s): N04.9 - Nephrotic syndrome with unspecified morphologic changes Status: Chronic Assessment and Plan: noted in the last 4 months: nephrotic range proteinuria (> 11 grams on this admission) significant issues with edema/swelling hypoalbuminemia (serum albumin as low as 1.5mg/dl in the past) presumably secondary to poorly controlled diabetes in association with hypertension complicated by poor nutritional status restarted on GABE-I -- titrate as needed see #1 (4) CHF (congestive heart failure): Qualifiers: Heart failure chronicity: acute on chronic Heart failure type: unspecified Qualified Code(s): I50.9 - Heart failure, unspecified Code(s): I50.9 - Heart failure, unspecified Status: Chronic Assessment and Plan: diastolic dysfunction noted by Echo continue diuresis/ultrafiltration as tolerated (5) Hypertension: Code(s): I10 - Essential (primary) hypertension Status: Chronic Assessment and Plan: poor control at baseline noted to be in the 200s systolic on admission better control follow trend of hemodynamics with fluid removal suspect may titration of BP medications as an outpatient (6) Chronic heel ulcer: Qualifiers: Laterality: right Non-pressure ulcer stage: unspecified non-pressure ulcer stage Qualified Code(s): L97.419 - Non-pressure chronic ulcer of right heel and midfoot with unspecified severity Code(s): L97.409 - Non-pressure chronic ulcer of unspecified heel and midfoot with unspecified severity Status: Chronic Assessment and Plan: has been an issue for the last 2 - 3 months was recommended to have right BKA by Vascular Surgery at [facility] (as well as by other surgeons at another hospital) but she refused this intervention was treated with 6 weeks of IV antibiotics already (was being followed by [facility] Infectious Disease) completed 2 weeks of IV antibiotics during this hospitalization General Surgery following - s/p debridement (7) Diabetes mellitus with chronic kidney disease: Code(s): E11.22 - Type 2 diabetes mellitus with diabetic chronic kidney disease Status: Chronic Assessment and Plan: noted poor control with associated complications (retinopathy, neuropathy, nephropathy) follow accu-cheks glycemic control as per hospitalists Tentatively plan discharge following dialysis treatment on Friday if otherwise medically stable. Will continue to follow. Subjective Date/time seen: 08/21/23 14:00 Interval history: Follow-up for chronic kidney disease, volume overload/anasarca, and nephrotic syndrome.
[2023-08-21] MEDS: HEPARIN SODIUM 1,000 UNITS/ML VIAL 5000 UNITS IV PUSH (16:55)
[2023-08-21] MEDS: FERROUS SULFATE 325 MG TABLET DR BY MOUTH (17:27)
[2023-08-21] MEDS: MULTIVITAMINS THERAPEUTIC TAB (*BKC) 1 TABLET PO (17:27)
[2023-08-21] MEDS: lisinopriL 20 MG TABLET PO (17:27)
[2023-08-21] MEDS: BUMETANIDE 1 MG TABLET 2 MG PO (17:27)
[2023-08-21] MEDS: ASCORBIC ACID 500 MG TABLET PO (17:28)
[2023-08-21] MEDS: carvediloL 12.5 MG TABLET PO (17:28)
[2023-08-21] MEDS: POTASSIUM CHLORIDE 20 MEQ ER TABLET PO (17:33)
[2023-08-21 17:36] LABS: Glucose Point of Care 112 mg/dl (65-105)
[2023-08-21] MEDS: hydrALAZINE HCL 20 MG/ML VIAL 10 MG IV PUSH (20:33)
[2023-08-21] MEDS: traMADol HCL (*CRX) 50 MG TABLET PO (20:33)
[2023-08-21 23:27] LABS: Immunochemical Fecal Occult Bl Positive (N)
[2023-08-21 23:28] LABS: IFOB Positive Control Positive
[2023-08-22] VITALS (10 sets, daily range): BP systolic 158–169; BP diastolic 80–90; PULSE 70–80; RESP 16–18; TEMP 36.1–36.6; O2SAT 98–99
[2023-08-22 03:24] LABS: Glucose Point of Care 157 mg/dl (65-105)
[2023-08-22 05:40] LABS: Basophils Absolute Auto 0.1 K/mm3 (0.0-0.1); Basophils Percent Auto 0.5 % (0.2-1.2); Eosinophils Absolute Auto 0.7 K/mm3 (0-0.3); Eosinophils Percent Auto 7.2 % (0-4.4); Hematocrit 28.5 % (37.0-47.0); Hemoglobin 8.5 g/dL (12.0-15.0); Immature Granulocyte Absolute 0.12 K/mm3 (0.00-0.031); Immature Granulocyte Percent A 1.2 % (0-0.5); Lymphocytes Absolute Auto 1.82 K/mm3 (0.9-3.2); Lymphocytes Percent Auto 17.6 % (18.3-44.2); Mean Corpuscular HGB Conc 29.8 g/dl (32-36); Mean Corpuscular Hemoglobin 29.5 pg (26-34); Mean Platelet Volume 10.3 fl (7.4-10.4); Monocytes Absolute Auto 0.7 K/mm3 (0.1-0.6); Monocytes Percent Auto 6.3 % (2.6-8.5); Neutrophils Percent Auto 67.2 % (45.5-73.1); Nucleated Red Blood Cells Absolute Auto 0.1 K/mm3 (0.0-0.012); Nucleated Red Blood Cells Perc 0.6 % (0.0-0.2); Platelet Count Result 446 k/mm3 (150-375); Red Blood Count 2.88 M/mm3 (4.2-5.4); Red Cell Distribution Width 17.8 % (11.5-14.5); White Blood Count 10.3 K/mm3 (4.5-10.0)
[2023-08-22 05:52] LABS: Alanine Aminotransferase 112 U/L (6-35); Alkaline Phosphatase 292 U/L (38-126); Anion Gap 5 mmol/L (8-16); Aspartate Amino Transferase 180 U/L (14-36); Bilirubin,Total 0.6 mg/dL (0.2-1.3); Blood Urea Nitrogen 25 mg/dL (7-17); Calcium 8.6 mg/dL (8.4-10.2); Carbon Dioxide 31 mmol/L (22-30); Chloride 106 mmol/L (98-107); Estimated CRCL calculation 35 ml/min; Estimated Glomerular Filt Rate 23; Glucose 155 mg/dL (65-110); Phosphorus 3.7 mg/dL (2.5-4.5); Potassium 4.2 mmol/L (3.4-5.0); Sodium 142 mmol/L (137-145)
[2023-08-22 06:38] LABS: Anisocytosis 1+ (NORMAL); Hypochromasia 1+ (NORMAL); Platelet Estimate Increased (Adequate); Schistocytes None Seen (NORMAL)
[2023-08-22 08:04] LABS: Glucose Point of Care 163 mg/dl (65-105)
--- NOTE | 2023-08-22 10:04 | PM.PNNEP ---
Progress Note: A&P Assessment and Plan (1) Volume overload: Code(s): E87.70 - Fluid overload, unspecified Status: Chronic Assessment and Plan: only mild improvement with conservative therapy anasarca noted on presentation felt to be secondary to nephrotic range proteinuria/nephrotic syndrome and diastolic heart failure off amlodipine 24hour urine showed a GFR of only 12cc/min with a creatinine of 2.9mg/dl.... sometimes there is improvement in the kidney function when fluid is removed due to improvement in renal venous hypertension; on the other hand, her parenchymal renal disease may be bad enough that she needs dialysis long-term noted outpatient schedule to be T/T/S -- plan next HD treatment on Friday (2) Stage 3b chronic kidney disease: Code(s): N18.32 - Chronic kidney disease, stage 3b Status: Chronic Assessment and Plan: has fluctuated to extremes over the last few months has been as low as 1.2mg/dl to as high as 3.0mg/dl these fluctuations are related to her issues with volume overload, need for diuretics, suspected renal venous HTN, and recurrent infections/wounds baseline creatinine seems to average out to 1.4 - 1.8mg/dl due to diabetes and hypertension (3) Nephrotic syndrome: Code(s): N04.9 - Nephrotic syndrome with unspecified morphologic changes Status: Chronic Assessment and Plan: noted in the last 4 months: nephrotic range proteinuria (> 11 grams on this admission) significant issues with edema/swelling hypoalbuminemia (serum albumin as low as 1.5mg/dl in the past) presumably secondary to poorly controlled diabetes in association with hypertension complicated by poor nutritional status restarted on GABE-I -- titrate as needed see #1 (4) CHF (congestive heart failure): Qualifiers: Heart failure chronicity: acute on chronic Heart failure type: unspecified Qualified Code(s): I50.9 - Heart failure, unspecified Code(s): I50.9 - Heart failure, unspecified Status: Chronic Assessment and Plan: diastolic dysfunction noted by Echo continue diuresis/ultrafiltration as tolerated (5) Hypertension: Code(s): I10 - Essential (primary) hypertension Status: Chronic Assessment and Plan: poor control at baseline noted to be in the 200s systolic on admission better control follow trend of hemodynamics with fluid removal suspect may need titration of BP medications as an outpatient (6) Chronic heel ulcer: Qualifiers: Laterality: right Non-pressure ulcer stage: unspecified non-pressure ulcer stage Qualified Code(s): L97.419 - Non-pressure chronic ulcer of right heel and midfoot with unspecified severity Code(s): L97.409 - Non-pressure chronic ulcer of unspecified heel and midfoot with unspecified severity Status: Chronic Assessment and Plan: has been an issue for the last 2 - 3 months was recommended to have right BKA by Vascular Surgery at [facility] (as well as by other surgeons at another hospital) but she refused this intervention was treated with 6 weeks of IV antibiotics already (was being followed by [facility] Infectious Disease) completed 2 weeks of IV antibiotics during this hospitalization General Surgery following - s/p debridement (7) Diabetes mellitus with chronic kidney disease: Code(s): E11.22 - Type 2 diabetes mellitus with diabetic chronic kidney disease Status: Chronic Assessment and Plan: noted poor control with associated complications (retinopathy, neuropathy, nephropathy) follow accu-cheks glycemic control as per hospitalists Tentatively plan discharge following dialysis treatment tomorrow if otherwise medically stable. Will continue to follow. Subjective Date/time seen: 08/22/23 10:04 Interval history: Follow-up for chronic kidney disease, volume overload/anasarca, and nephrotic syndrome. Tolerated DUF rudolph
--- NOTE | 2023-08-22 10:04 | P.PNNP_ITS ---
Progress Note: A&P Assessment and Plan (1) Volume overload: Code(s): E87.70 - Fluid overload, unspecified Status: Chronic Assessment and Plan: * only mild improvement with conservative therapy * anasarca noted on presentation * felt to be secondary to nephrotic range proteinuria/nephrotic syndrome and diastolic heart failure * off amlodipine * 24hour urine showed a GFR of only 12cc/min with a creatinine of 2.9mg/dl.... * sometimes there is improvement in the kidney function when fluid is removed due to improvement in renal venous hypertension; on the other hand, her parenchymal renal disease may be bad enough that she needs dialysis long-term * noted outpatient schedule to be T/T/S -- plan next HD treatment on Friday (2) Stage 3b chronic kidney disease: Code(s): N18.32 - Chronic kidney disease, stage 3b Status: Chronic Assessment and Plan: * has fluctuated to extremes over the last few months * has been as low as 1.2mg/dl to as high as 3.0mg/dl * these fluctuations are related to her issues with volume overload, need for diuretics, suspected renal venous HTN, and recurrent infections/wounds * baseline creatinine seems to average out to 1.4 - 1.8mg/dl * due to diabetes and hypertension (3) Nephrotic syndrome: Code(s): N04.9 - Nephrotic syndrome with unspecified morphologic changes Status: Chronic Assessment and Plan: * noted in the last 4 months: * nephrotic range proteinuria (> 11 grams on this admission) * significant issues with edema/swelling * hypoalbuminemia (serum albumin as low as 1.5mg/dl in the past) * presumably secondary to poorly controlled diabetes in association with hypertension complicated by poor nutritional status * restarted on GABE-I -- titrate as needed * see #1 (4) CHF (congestive heart failure): Qualifiers: Heart failure chronicity: acute on chronic Heart failure type: unspecified Qualified Code(s): I50.9 - Heart failure, unspecified Code(s): I50.9 - Heart failure, unspecified Status: Chronic Assessment and Plan: * diastolic dysfunction noted by Echo * continue diuresis/ultrafiltration as tolerated (5) Hypertension: Code(s): I10 - Essential (primary) hypertension Status: Chronic Assessment and Plan: * poor control at baseline * noted to be in the 200s systolic on admission * better control * follow trend of hemodynamics with fluid removal * suspect may need titration of BP medications as an outpatient (6) Chronic heel ulcer: Qualifiers: Laterality: right Non-pressure ulcer stage: unspecified non-pressure ulcer stage Qualified Code(s): L97.419 - Non-pressure chronic ulcer of right heel and midfoot with unspecified severity Code(s): L97.409 - Non-pressure chronic ulcer of unspecified heel and midfoot with unspecified severity Status: Chronic Assessment and Plan: * has been an issue for the last 2 - 3 months * was recommended to have right BKA by Vascular Surgery at [facility] (as well as by other surgeons at another hospital) but she refused this intervention * was treated with 6 weeks of IV antibiotics already (was being followed by [facility] Infectious Disease) * completed 2 weeks of IV antibiotics during this hospitalization * General Surgery following - s/p debridement (7) Diabetes mellitus with chronic kidney disease: Code(s): E11.22 - Type 2 diabetes mellitus with diabetic chronic kidney disease Status: Chronic Assessment and Plan: * noted poor control with associated complicat
[2023-08-22] MEDS: BUMETANIDE 1 MG TABLET 2 MG PO ×2 (10:27→17:03)
[2023-08-22] MEDS: FERROUS SULFATE 325 MG TABLET DR BY MOUTH (10:27)
[2023-08-22] MEDS: POTASSIUM CHLORIDE 20 MEQ ER TABLET PO (10:27)
[2023-08-22] MEDS: carvediloL 12.5 MG TABLET PO ×2 (10:27→20:36)
[2023-08-22] MEDS: ASCORBIC ACID 500 MG TABLET PO ×2 (10:28→17:03)
[2023-08-22] MEDS: lisinopriL 20 MG TABLET PO (10:28)
[2023-08-22] MEDS: MULTIVITAMINS THERAPEUTIC TAB (*BKC) 1 TABLET PO (10:28)
[2023-08-22] MEDS: TOLNAFTATE 1% POWDER 45 GM BTL 1 APPLIC TOPICAL (10:32)
[2023-08-22] MEDS: COLLAGENASE OINT 30 GM TUBE 1 APPLIC TOPICAL (10:33)
[2023-08-22] MEDS: EUCERIN CREAM 120 GM JAR 1 APPLIC TOPICAL (10:33)
--- NOTE | 2023-08-22 11:29 | PM.IMPN ---
Progress Note: A&P Assessment and Plan (1) Anemia: Code(s): D64.9 - Anemia, unspecified Status: Acute (2) Altered mental status: Code(s): R41.82 - Altered mental status, unspecified Status: Acute (3) Hypertension: Code(s): I10 - Essential (primary) hypertension Status: Chronic (4) Diabetes mellitus with chronic kidney disease: Code(s): E11.22 - Type 2 diabetes mellitus with diabetic chronic kidney disease Status: Chronic (5) Nephrotic syndrome: Code(s): N04.9 - Nephrotic syndrome with unspecified morphologic changes Status: Chronic (6) Stage 3b chronic kidney disease: Code(s): N18.32 - Chronic kidney disease, stage 3b Status: Chronic (7) Volume overload: Code(s): E87.70 - Fluid overload, unspecified Status: Chronic (8) Chronic 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: Code(s): Z79.01 - 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 Status: Chronic (9) Diabetic neuropathy: Code(s): E11.40 - Type 2 diabetes mellitus with diabetic neuropathy, unspecified Status: Chronic (10) Subtherapeutic international normalized ratio (INR): Code(s): R79.1 - Abnormal coagulation profile Status: Acute (11) Nephrotic range proteinuria: Code(s): R80.9 - Proteinuria, unspecified Status: Acute (12) Obstructive sleep apnea: Code(s): G47.33 - Obstructive sleep apnea (adult) (pediatric) Status: Acute (13) Acute hypoxic respiratory failure: Code(s): J96.01 - Acute respiratory failure with hypoxia Status: Acute (14) Diabetic nephropathy with proteinuria: Code(s): E11.21 - Type 2 diabetes mellitus with diabetic nephropathy Status: Chronic (15) Chronic heel ulcer: Qualifiers: Laterality: right Non-pressure ulcer stage: unspecified non-pressure ulcer stage Qualified Code(s): L97.419 - Non-pressure chronic ulcer of right heel and midfoot with unspecified severity Code(s): L97.409 - Non-pressure chronic ulcer of unspecified heel and midfoot with unspecified severity Status: Chronic (16) CHF (congestive heart failure): Qualifiers: Heart failure chronicity: acute on chronic Heart failure type: unspecified Qualified Code(s): I50.9 - Heart failure, unspecified Code(s): I50.9 - Heart failure, unspecified Status: Chronic Plan 32F w/ PMH HTN, IDDM w/ stage 3B CKD, nephrotic syndrome, EDD, HFpEF, morbid obesity, chronic AC, chronic ulcers, s/p left leg amputation, left eye blindness, presented with pain and hypoxia. She is an unfortunate lady with morbid obesity and DM since her teens. She came from a rehab facility with the above complaints. She was found to have an infected right heel ulcer which was debrided. Her new onset acute hypoxic respiratory failure appears to be due to CKD advancing to ESRD as she has nephrotic range proteinuria. A tunneled dialysis cath was placed. At one point she was up to 10L HFNC but she is down now to 3L NC. She also had intermittent episodes of obtundation in sync with hypoxia. That has resolved. Discharge back to SNF as soon as case workers can setup for dialysis. See nephrology notes. 1) fluid overload - trialed on lasix, which did not work. she is now on dialysis and improving slowly. - nephrotic syndrome. - previous echo showed diastolic heart failure - needs strict bp control, otherwise she will ct going into diastolic chf. sbp < 150 ideally. on coreg 12.5 mg bid. restart lisinopril 20 mg/day. prn hydralazine if sbp > 150. - ct lisinopril. BP only went down to 149's systolic. discussed with nephrology. they will continue fluid removal and titrate bp outpatient. appreciate their consultation. 2) acute hypoxic respiratory failure on admission, now chronic - up to 10L at one point. she is now stabilized on 3L NC. she did have some pulmonary edema and now that is improved. will need o2 on discharge - ABG w/o hypercapnia 3) CKD sta
[2023-08-22 12:22] LABS: Glucose Point of Care 161 mg/dl (65-105)
[2023-08-22] MEDS: acetaZOLAMIDE TAB 250 MG TABLET 500 MG PO ×2 (12:55→17:03)
[2023-08-22 17:12] LABS: Glucose Point of Care 193 mg/dl (65-105)
[2023-08-22] MEDS: metOLazone 5 MG TABLET 10 MG PO (17:54)
[2023-08-22 20:27] LABS: Glucose Point of Care 142 mg/dl (65-105)
[2023-08-23] VITALS (23 sets, daily range): BP systolic 141–173; BP diastolic 73–100; PULSE 72–90; RESP 14–16; TEMP 36.4–37; O2SAT 99–100
[2023-08-23 05:47] LABS: Basophils Percent Auto 0.2 % (0.2-1.2); Eosinophils Absolute Auto 0.6 K/mm3 (0-0.3); Hematocrit 27.8 % (37.0-47.0); Immature Granulocyte Absolute 0.09 K/mm3 (0.00-0.031); Lymphocytes Absolute Auto 1.29 K/mm3 (0.9-3.2); Lymphocytes Percent Auto 14.2 % (18.3-44.2); Mean Corpuscular HGB Conc 28.8 g/dl (32-36); Mean Corpuscular Hemoglobin 29.2 pg (26-34); Mean Corpuscular Volume 101.5 fl (80-100); Monocytes Absolute Auto 0.6 K/mm3 (0.1-0.6); Monocytes Percent Auto 6.4 % (2.6-8.5); Neutrophils Absolute Auto 6.5 K/mm3 (1.3-6.7); Neutrophils Percent Auto 71.2 % (45.5-73.1); Nucleated Red Blood Cells Perc 0.4 % (0.0-0.2); Platelet Count Result 420 k/mm3 (150-375); Red Blood Count 2.74 M/mm3 (4.2-5.4); Red Cell Distribution Width 19.2 % (11.5-14.5); White Blood Count 9.1 K/mm3 (4.5-10.0)
[2023-08-23 06:06] LABS: Alanine Aminotransferase 141 U/L (6-35); Albumin Level 2.8 g/dL (3.5-5.1); Alkaline Phosphatase 281 U/L (38-126); Anion Gap 1 mmol/L (8-16); Aspartate Amino Transferase 189 U/L (14-36); Bilirubin,Total 0.7 mg/dL (0.2-1.3); Blood Urea Nitrogen 24 mg/dL (7-17); Calcium 8.5 mg/dL (8.4-10.2); Carbon Dioxide 35 mmol/L (22-30); Chloride 106 mmol/L (98-107); Estimated CRCL calculation 32 ml/min; Estimated Glomerular Filt Rate 21; Glucose 183 mg/dL (65-110); Magnesium 1.9 mg/dL (1.6-2.3); Phosphorus 4.6 mg/dL (2.5-4.5); Potassium 4.2 mmol/L (3.4-5.0); Sodium 142 mmol/L (137-145)
[2023-08-23] MEDS: traMADol HCL (*CRX) 50 MG TABLET PO (06:21)
[2023-08-23 08:33] LABS: Glucose Point of Care 149 mg/dl (65-105)
--- NOTE | 2023-08-23 11:04 | PM.PNNEP ---
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 sometimes there is improvement in the kidney function when fluid is removed due to improvement in renal venous hypertension; on the other hand, her parenchymal renal disease may be bad enough that she needs dialysis long-term since HD/DUF/diuresis started, currently 30L negative.... noted outpatient schedule to be T/T/S HD today -- it is still possible that dialysis may only be a temporary issue.... (2) Stage 3b chronic kidney disease: Code(s): N18.32 - Chronic kidney disease, stage 3b Status: Chronic Assessment and Plan: has fluctuated to extremes over the last few months has been as low as 1.2mg/dl to as high as 3.0mg/dl these fluctuations are related to her issues with volume overload, need for diuretics, suspected renal venous HTN, and recurrent infections/wounds baseline creatinine seems to average out to 1.4 - 1.8mg/dl due to diabetes and hypertension (3) Nephrotic syndrome: Code(s): N04.9 - Nephrotic syndrome with unspecified morphologic changes Status: Chronic Assessment and Plan: noted in the last 4 months: nephrotic range proteinuria (> 11 grams on this admission) significant issues with edema/swelling hypoalbuminemia (serum albumin as low as 1.5mg/dl in the past) presumably secondary to poorly controlled diabetes in association with hypertension complicated by poor nutritional status restarted on GABE-I -- titrate as needed see #1 (4) CHF (congestive heart failure): Qualifiers: Heart failure chronicity: acute on chronic Heart failure type: unspecified Qualified Code(s): I50.9 - Heart failure, unspecified Code(s): I50.9 - Heart failure, unspecified Status: Chronic Assessment and Plan: diastolic dysfunction noted by Echo continue diuresis/ultrafiltration as tolerated (5) Hypertension: Code(s): I10 - Essential (primary) hypertension Status: Chronic Assessment and Plan: poor control at baseline noted to be in the 200s systolic on admission better control follow trend of hemodynamics with fluid removal suspect may need titration of BP medications as an outpatient (6) Chronic heel ulcer: Qualifiers: Laterality: right Non-pressure ulcer stage: unspecified non-pressure ulcer stage Qualified Code(s): L97.419 - Non-pressure chronic ulcer of right heel and midfoot with unspecified severity Code(s): L97.409 - Non-pressure chronic ulcer of unspecified heel and midfoot with unspecified severity Status: Chronic Assessment and Plan: has been an issue for the last 2 - 3 months was recommended to have right BKA by Vascular Surgery at [facility] (as well as by other surgeons at another hospital) but she refused this intervention was treated with 6 weeks of IV antibiotics already (was being followed by [facility] Infectious Disease) completed 2 weeks of IV antibiotics during this hospitalization General Surgery following - s/p debridement (7) Diabetes mellitus with chronic kidney disease: Code(s): E11.22 - Type 2 diabetes mellitus with diabetic chronic kidney disease Status: Chronic Assessment and Plan: noted poor control with associated complications (retinopathy, neuropathy, nephropathy) follow accu-cheks glycemic control as per hospitalists Not opposed to discharge today after dialysis if otherwise medically stable -- I will follow her for her outpatient dialysis needs. Will jacinto
--- NOTE | 2023-08-23 11:04 | P.PNNP_ITS ---
Progress Note: A&P Assessment and Plan (1) Volume overload: Code(s): E87.70 - Fluid overload, unspecified Status: Chronic Assessment and Plan: * only mild improvement with conservative therapy * anasarca noted on presentation * felt to be secondary to nephrotic range proteinuria/nephrotic syndrome and diastolic heart failure * off amlodipine * initiated on DIRECTOR OF GRADUATE MEDICAL EDUCATION/dialysis/ultrafiltration on 08/15/23 * 24hour urine showed a GFR of only 12cc/min with a creatinine of 2.9mg/dl.... * sometimes there is improvement in the kidney function when fluid is removed due to improvement in renal venous hypertension; on the other hand, her parenchymal renal disease may be bad enough that she needs dialysis long-term * since HD/DUF/diuresis started, currently 30L negative.... * noted outpatient schedule to be T/T/S * HD today -- it is still possible that dialysis may only be a temporary issue.... (2) Stage 3b chronic kidney disease: Code(s): N18.32 - Chronic kidney disease, stage 3b Status: Chronic Assessment and Plan: * has fluctuated to extremes over the last few months * has been as low as 1.2mg/dl to as high as 3.0mg/dl * these fluctuations are related to her issues with volume overload, need for diuretics, suspected renal venous HTN, and recurrent infections/wounds * baseline creatinine seems to average out to 1.4 - 1.8mg/dl * due to diabetes and hypertension (3) Nephrotic syndrome: Code(s): N04.9 - Nephrotic syndrome with unspecified morphologic changes Status: Chronic Assessment and Plan: * noted in the last 4 months: * nephrotic range proteinuria (> 11 grams on this admission) * significant issues with edema/swelling * hypoalbuminemia (serum albumin as low as 1.5mg/dl in the past) * presumably secondary to poorly controlled diabetes in association with hypertension complicated by poor nutritional status * restarted on GABE-I -- titrate as needed * see #1 (4) CHF (congestive heart failure): Qualifiers: Heart failure chronicity: acute on chronic Heart failure type: unspecified Qualified Code(s): I50.9 - Heart failure, unspecified Code(s): I50.9 - Heart failure, unspecified Status: Chronic Assessment and Plan: * diastolic dysfunction noted by Echo * continue diuresis/ultrafiltration as tolerated (5) Hypertension: Code(s): I10 - Essential (primary) hypertension Status: Chronic Assessment and Plan: * poor control at baseline * noted to be in the 200s systolic on admission * better control * follow trend of hemodynamics with fluid removal * suspect may need titration of BP medications as an outpatient (6) Chronic heel ulcer: Qualifiers: Laterality: right Non-pressure ulcer stage: unspecified non-pressure ulcer stage Qualified Code(s): L97.419 - Non-pressure chronic ulcer of right heel and midfoot with unspecified severity Code(s): L97.409 - Non-pressure chronic ulcer of unspecified heel and midfoot with unspecified severity Status: Chronic Assessment and Plan: * has been an issue for the last 2 - 3 months * was recommended to have right BKA by Vascular Surgery at [facility] (as well as by other surgeons at another hospital) but she refused this intervention * was treated with 6 weeks of IV antibiotics already (was being followed by [facility] Infectious Disease) * completed 2 weeks of IV antibiotics during this hospitalization * General Surgery following - s/p debridement (7) Diabetes mellitus with chronic kidney disease: Code(s):
[2023-08-23] MEDS: SODIUM CHLORIDE 0.9% IV 1,000 ML 999 ML IV CONT (12:10)
[2023-08-23] MEDS: EPOETIN ALFA 20,000 UNITS/ML VIAL 20000 UNITS IV PUSH (12:10)
--- NOTE | 2023-08-23 12:17 | PM.DS ---
DS: Admitting Diagnosis Discharge Date August 23, 2023 Admitting Diagnosis Nephritis syndrome and renal disease DS: Discharge Diagnosis Discharge Diagnosis (1) Anemia: Code(s): D64.9 - Anemia, unspecified Status: Acute (2) Altered mental status: Code(s): R41.82 - Altered mental status, unspecified Status: Acute (3) Hypertension: Code(s): I10 - Essential (primary) hypertension Status: Chronic (4) Diabetes mellitus with chronic kidney disease: Code(s): E11.22 - Type 2 diabetes mellitus with diabetic chronic kidney disease Status: Chronic (5) Nephrotic syndrome: Code(s): N04.9 - Nephrotic syndrome with unspecified morphologic changes Status: Chronic (6) Stage 3b chronic kidney disease: Code(s): N18.32 - Chronic kidney disease, stage 3b Status: Chronic (7) Volume overload: Code(s): E87.70 - Fluid overload, unspecified Status: Chronic (8) Chronic 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: Code(s): 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 Status: Chronic (9) Diabetic neuropathy: Code(s): E11.40 - Type 2 diabetes mellitus with diabetic neuropathy, unspecified Status: Chronic (10) Subtherapeutic international normalized ratio (INR): Code(s): R79.1 - Abnormal coagulation profile Status: Acute (11) Nephrotic range proteinuria: Code(s): R80.9 - Proteinuria, unspecified Status: Acute (12) Obstructive sleep apnea: Code(s): G47.33 - Obstructive sleep apnea (adult) (pediatric) Status: Acute (13) Acute hypoxic respiratory failure: Code(s): J96.01 - Acute respiratory failure with hypoxia Status: Acute (14) Diabetic nephropathy with proteinuria: Code(s): E11.21 - Type 2 diabetes mellitus with diabetic nephropathy Status: Chronic (15) Chronic heel ulcer: Qualifiers: Laterality: right Non-pressure ulcer stage: unspecified non-pressure ulcer stage Qualified Code(s): L97.419 - Non-pressure chronic ulcer of right heel and midfoot with unspecified severity Code(s): L97.409 - Non-pressure chronic ulcer of unspecified heel and midfoot with unspecified severity Status: Chronic (16) CHF (congestive heart failure): Qualifiers: Heart failure chronicity: acute on chronic Heart failure type: unspecified Qualified Code(s): I50.9 - Heart failure, unspecified Code(s): I50.9 - Heart failure, unspecified Status: Chronic Plan 32F w/ PMH HTN, IDDM w/ stage 3B CKD, nephrotic syndrome, EDD, HFpEF, morbid obesity, chronic AC, chronic ulcers, s/p left leg amputation, left eye blindness, presented with pain and hypoxia. She is an unfortunate lady with morbid obesity and DM since her teens. She came from a rehab facility with the above complaints. She was found to have an infected right heel ulcer which was debrided. Her new onset acute hypoxic respiratory failure appears to be due to CKD advancing to ESRD as she has nephrotic range proteinuria. A tunneled dialysis cath was placed. At one point she was up to 10L HFNC but she is down now to 3L NC. She also had intermittent episodes of obtundation in sync with hypoxia. That has resolved. Discharge back to SNF as soon as case workers can setup for dialysis. See nephrology notes. 1) fluid overload - trialed on lasix, which did not work. she is now on dialysis and improving slowly. - nephrotic syndrome. - previous echo showed diastolic heart failure - needs strict bp control, otherwise she will ct going into diastolic chf. sbp < 150 ideally. on coreg 12.5 mg bid. restart lisinopril 20 mg/day. prn hydralazine if sbp > 150. - ct lisinopril. BP only went down to 149's systolic. discussed with nephrology. they will continue fluid removal and titrate bp outpatient. appreciate their consultation. 2) acute hypoxic respiratory failure on admission, now chronic - up to 10L at one point. she is now stabilized on 3L N
[2023-08-23] MEDS: lisinopriL 20 MG TABLET PO (12:22)
[2023-08-23] MEDS: BUMETANIDE 1 MG TABLET 2 MG PO ×2 (12:22→16:29)
[2023-08-23] MEDS: MULTIVITAMINS THERAPEUTIC TAB (*BKC) 1 TABLET PO (12:23)
[2023-08-23] MEDS: POTASSIUM CHLORIDE 20 MEQ ER TABLET PO (12:23)
[2023-08-23] MEDS: ASCORBIC ACID 500 MG TABLET PO ×2 (12:23→16:28)
[2023-08-23] MEDS: carvediloL 12.5 MG TABLET PO (12:23)
[2023-08-23] MEDS: FERROUS SULFATE 325 MG TABLET DR BY MOUTH (12:23)
[2023-08-23 12:38] LABS: Glucose Point of Care 119 mg/dl (65-105)
[2023-08-23] MEDS: COLLAGENASE OINT 30 GM TUBE 1 APPLIC TOPICAL (14:33)
[2023-08-23] MEDS: EUCERIN CREAM 120 GM JAR 1 APPLIC TOPICAL (14:33)
[2023-08-23 17:20] LABS: Glucose Point of Care 149 mg/dl (65-105)
== END 2023-08-23 19:00 | DRG 951 ==
LOC: ANHED 22:08 → ANH3MEDSUR 08-05 00:56 → ANHIMU 08-14 09:43 → ANH2MED 08-22 12:38 → ANH3MEDSUR 08-25 09:23 → ANHIMU 08-25 09:23
PROVIDERS: Emergency Medicine; General Practice; Internal Medicine; Internal Medicine Nephrology; Surgery; Admitting Provider Internal Medicine; Emergency Provider Emergency Medicine; PCP Physician Assistant; Visit Provider Chiropractor
PROC: 0JH63XZ Insertion of Tunneled Vascular Access Device into Chest Subcutaneous Tissue and Fascia, Percutaneous Approach (ICD-10-PCS; CPT 36908; principal; 2023-08-15 12:30)
DX: E11.21 Type 2 diabetes mellitus with diabetic nephropathy (principal); J96.01 Acute respiratory failure with hypoxia; I50.31 Acute diastolic (congestive) heart failure; I30.9 Acute pericarditis, unspecified; N17.9 Acute kidney failure, unspecified; E87.79 Other fluid overload; L97.413 Non-pressure chronic ulcer of right heel and midfoot with necrosis of muscle; D64.9 Anemia, unspecified; E11.42 Type 2 diabetes mellitus with diabetic polyneuropathy; J96.21 Acute and chronic respiratory failure with hypoxia; N18.32 Chronic kidney disease, stage 3b; I11.0 Hypertensive heart disease with heart failure; E11.319 Type 2 diabetes mellitus with unspecified diabetic retinopathy without macular edema; E11.22 Type 2 diabetes mellitus with diabetic chronic kidney disease; I13.0 Hypertensive heart and chronic kidney disease with heart failure and stage 1 through stage 4 chronic kidney disease, or unspecified chronic kidney disease; Z66 Do not resuscitate; E78.5 Hyperlipidemia, unspecified; Z20.822 Contact with and (suspected) exposure to COVID-19; E66.01 Morbid (severe) obesity due to excess calories; G47.33 Obstructive sleep apnea (adult) (pediatric); R79.1 Abnormal coagulation profile; H54.7 Unspecified visual loss; Z68.41 Body mass index [BMI] 40.0-44.9, adult; Z89.512 Acquired absence of left leg below knee; Z79.01 Long term (current) use of 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; Z99.2 Dependence on renal dialysis
CPT/HCPCS: 36415; 36430; 36600; 70450; 70551; 71045; 71275; 73620; 74177; 77001; 80048; 80053; 80202; 80307; 81001; 81050; 82140; 82274; 82565; 82570; 82728; 82805; 82948; 83036; 83540; 83550; 83605; 83735; 83880; 83883; 84100; 84145; 84155; 84156; 84165; 84166; 84300; 84443; 84484; 84540; 85025; 85027; 85610; 85730; 85999; 86140; 86334; 86335; 86704; 86706; 86803; 86850; 86900; 86901; 86923; 87040; 87070; 87077; 87186; 87205; 87340; 87633; 87635; 93005; 93306; 93970; 94002; 94003; 94660; 94762; 96365; 96366; 96367; 96372; 96374; 96375; 96376; 99199; 99285; A9270; C1750; G0257; G0378; G0379; J0360; J0690; J0692; J1644; J1650; J1940; J2250; J2704; J3010; J3370; J3480; J7030; J7040; J7050; P9016; P9047; Q4081; Q5105; Q9967

== ENCOUNTER 2023-10-25 14:35 | Emergency (ER) | payer BC, SELFPAY ==
[2023-10-25 14:38] VITALS: BP 177/102; PULSE 86; RESP 16; TEMP 36.2; O2SAT 100
[2023-10-25 18:47] VITALS: BP 141/94; PULSE 78; RESP 18; O2SAT 100
--- NOTE | 2023-10-25 19:09 | ED.GENADULT ---
HPI - General Adult General Chief complaint: Unspecified Stated complaint: missed dialysis Time Seen by Provider: 10/25/23 19:06 Source: patient Mode of arrival: ambulatory Limitations: no limitations History of Present Illness HPI narrative: 33 years old female missed her dialysis today. Patient is asymptomatic. Sent by the [place] [facility] for possible getting dialysis today. Patient denies any fever, chills, nausea, vomiting, chest pain, shortness of breath or abdominal pain. Related Data Home Medications Medication Instructions Recorded Confirmed amlodipine 10 mg tablet 10 mg PO DAILY 08/04/23 08/05/23 carvedilol 12.5 mg tablet 12.5 mg PO BID 08/04/23 08/05/23 insulin lispro 100 unit/mL See Rx Instructions .Route .COMPLEX 08/04/23 08/05/23 subcutaneous solution nystatin 100,000 unit/gram topical 1 applic topical PRN 08/04/23 08/05/23 powder potassium chloride 20 mEq 20 meq PO DAILY 08/04/23 08/05/23 tablet,extended release(part/cryst) ascorbic acid (vitamin C) 500 mg 500 mg PO BID 08/05/23 08/05/23 tablet collagenase clostridium histo. 250 1 applic topical DAILY 08/05/23 08/05/23 unit/gram topical ointment (Santyl) ferrous sulfate 325 mg (65 mg 325 mg PO DAILY 08/05/23 08/05/23 iron) tablet melatonin 3 mg PO HS 08/05/23 08/05/23 multivitamin 1 tablet PO DAILY 08/05/23 08/05/23 ondansetron 4 mg disintegrating 4 mg PO Q8H 08/05/23 08/05/23 tablet Allergies Allergy/AdvReac Type Severity Reaction Status Date / Time No Known Allergies Allergy Verified 10/25/23 18:48 Review of Systems Review of Systems: All systems reviewed & are unremarkable except as noted in HPI and below PMFSH Past Medical History Medical History Anemia CHF (congestive heart failure) Chronic heel ulcer Diabetes mellitus Diabetic nephropathy with proteinuria Hyperlipidemia Hypertension Surgical History Surgical History History of left below knee amputation (~12/2022) Due to osteomyelitis Family History Family History Father Diabetes mellitus Mother Obesity Hypertension Sibling Diabetes mellitus, Onset Age: 28 Sibling Unknown family medical history Does not see a doctor Social History Social History Social History: The patient reports that 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 Since August 2022 she moved in with her sister. She has had a severe significant decline in her health and December 2021 had left above the knee amputation. She has been in out of [place] [facility] and rehab facilities since that time. She is a lifelong nonsmoker. She used to rarely smoke marijuana. She had no significant alcohol use history. She does not have any children. Code status: DNR/DNI (per patient request) Surrogate decision maker: Kianna Nunez (sister) Smoking status: Never smoker Alcohol intake: never Substance use: former Substance use type: marijuana Lack of Transportation: No Lack of Food: Never True Current Housing: I Have Housing Concerned About Future Housing: No Difficulty Paying Gas/Electric Bills: No Difficulty Paying for Meds: No Currently Unemployed: No Education: High School Diploma/GED Difficulty w/ Childcare or Family Care: No Spiritual care concerns: No Exam Narrative: General appearance: Well-developed, well-nourished Skin: Normal color Head: Normocephalic, nontraumatic Eyes: Clear conjunctiva ENT: Oropharynx normal, ears normal, nose normal Neck: Supple, nontender Chest and respiratory: Airway patent, no respiratory distress, no accessory muscle use Heart: Regular rate/rhythm Abdomen: Soft, nontender, no organomegaly, quiet bowel sounds Vascular: Normal peripheral pulses, normal capillary refill.
[2023-10-25 19:59] LABS: Basophils Percent Auto 0.5 % (0.2-1.2); Eosinophils Absolute Auto 0.7 K/mm3 (0-0.3); Eosinophils Percent Auto 9.3 % (0-4.4); Hematocrit 37.1 % (37.0-47.0); Hemoglobin 11.4 g/dL (12.0-15.0); Immature Granulocyte Absolute 0.02 K/mm3 (0.00-0.031); Immature Granulocyte Percent A 0.3 % (0-0.5); Lymphocytes Percent Auto 33.5 % (18.3-44.2); Mean Corpuscular HGB Conc 30.7 g/dl (32-36); Mean Corpuscular Hemoglobin 30.4 pg (26-34); Mean Corpuscular Volume 98.9 fl (80-100); Mean Platelet Volume 9.6 fl (7.4-10.4); Monocytes Absolute Auto 0.5 K/mm3 (0.1-0.6); Monocytes Percent Auto 6.3 % (2.6-8.5); Neutrophils Absolute Auto 3.9 K/mm3 (1.3-6.7); Neutrophils Percent Auto 50.1 % (45.5-73.1); Platelet Count Result 281 k/mm3 (150-375); Red Blood Count 3.75 M/mm3 (4.2-5.4); Red Cell Distribution Width 13.7 % (11.5-14.5); White Blood Count 7.8 K/mm3 (4.5-10.0)
[2023-10-25 20:14] LABS: Alanine Aminotransferase 22 U/L (6-35); Albumin Level 3.2 g/dL (3.5-5.1); Alkaline Phosphatase 152 U/L (38-126); Anion Gap 8 mmol/L (8-16); Aspartate Amino Transferase 26 U/L (14-36); Bilirubin,Total 0.4 mg/dL (0.2-1.3); Blood Urea Nitrogen 34 mg/dL (7-17); Calcium 9.1 mg/dL (8.4-10.2); Carbon Dioxide 22 mmol/L (22-30); Chloride 109 mmol/L (98-107); Estimated CRCL calculation 25 ml/min; Estimated Glomerular Filt Rate 20; Glucose 101 mg/dL (65-110); Potassium 4.3 mmol/L (3.4-5.0); Sodium 139 mmol/L (137-145)
[2023-10-25 22:26] VITALS: BP 162/105; PULSE 80; RESP 16; O2SAT 100
== END 2023-10-25 22:26 ==
PROVIDERS: Emergency Provider Emergency Medicine; PCP Physician Assistant
DX: I12.0 Hypertensive chronic kidney disease with stage 5 chronic kidney disease or end stage renal disease (principal); E11.22 Type 2 diabetes mellitus with diabetic chronic kidney disease; N18.6 End stage renal disease; Z99.2 Dependence on renal dialysis; Z79.4 Long term (current) use of insulin
CPT/HCPCS: 36415; 80053; 85025; 99283

== ENCOUNTER 2023-12-02 13:04 | Emergency (ER) | payer BC, SELFPAY ==
[2023-12-02] VITALS (28 sets, daily range): BP systolic 166–213; BP diastolic 99–118; PULSE 71–84; RESP 14–18; TEMP 36.6; O2SAT 100
--- NOTE | 2023-12-02 14:04 | ED.NAVMDI ---
HPI - Nausea/Vomiting/Diarrhea General Chief complaint: Nausea/Vomiting/Diarrhea <ALEN Peter Last Filed: 12/02/23 14:11> Stated complaint: NVD <ALEN Peter Last Filed: 12/02/23 14:11> Time Seen by Provider: 12/02/23 14:02 <ALEN Peter Last Filed: 12/02/23 14:11> Focused HPI: Patient is a 33 y/o female, with PMH of ESRD, DM, L AKA, who presents to the ED via EMS with report of N/V. Patient is a resident of [facility]. Patient has Hx of ESRD on hemodialysis //Fri, began 3 months ago. States she only received 30 minutes of her treatment both days before she began vomiting. States she typically receives zofran with her treatments, but states she did not receive it today before her treatment. Treatment was stopped. EMS was then called. Patient also reported having lower abdominal cramping with the N/V, but states this is improved currently. No recent illness, cough, cold sx's, fevers, urinary complaints. Ibm Bpm Developer is Dr. Mazariegos. GENERAL: Well-appearing, well-nourished, and in no acute distress. HEAD: Normocephalic, atraumatic. CHEST: Clear to auscultation. ?No respiratory distress. ABDOMEN: No significant tenderness to palpation throughout abdomen, soft, nondistended. SKIN: Dialysis catheter in R upper chest. MSK: L AKA. HEART: Regular rate and rhythm.? NEURO: ?Alert and oriented x3. Patient screened in triage and initial orders placed.? ?Additional care and disposition to be based upon?diagnostic testing and treatment. <ALEN Peter Last Filed: 12/02/23 14:11> Source: patient <ALEN Peter Last Filed: 12/02/23 14:11> Mode of arrival: EMS <ALEN Peter Last Filed: 12/02/23 14:11> Limitations: no limitations <ALEN Peter Filed: 12/02/23 14:11> History of Present Illness HPI Narrative: 33-year-old female with history type 2 diabetes on dialysis on Tuesdays and Saturdays present in the emergency department for evaluation of some intermittent abdominal pain. Patient states while she is on dialysis that she often has pain and when that dialysis sessions. The pain resolved. Patient's dialysis session was terminated early due to pain. Upon arrival emergency department patient denies any pain and states she feels at her baseline. Patient does have history of anemia patient has no active bleeding. Patient denies any hematemesis or hematochezia, melena or vaginal bleeding Patient follows up with dr mazariegos. <Cayden Christianson MD - Last Filed: 12/03/23 09:36> Related Data Home medications: Home Medications Medication Instructions Recorded Confirmed amlodipine 10 mg tablet 10 mg PO DAILY 08/04/23 08/05/23 carvedilol 12.5 mg tablet 12.5 mg PO BID 08/04/23 08/05/23 insulin lispro 100 unit/mL See Rx Instructions .Route .COMPLEX 08/04/23 08/05/23 subcutaneous solution nystatin 100,000 unit/gram topical 1 applic topical PRN 08/04/23 08/05/23 powder potassium chloride 20 mEq 20 meq PO DAILY 08/04/23 08/05/23 tablet,extended release(part/cryst) ascorbic acid (vitamin C) 500 mg 500 mg PO BID 08/05/23 08/05/23 tablet collagenase clostridium histo. 250 1 applic topical DAILY 08/05/23 08/05/23 unit/gram topical ointment (Santyl) ferrous sulfate 325 mg (65 mg 325 mg PO DAILY 08/05/23 08/05/23 iron) tablet melatonin 3 mg PO HS 08/05/23 08/05/23 multivitamin 1 tablet PO DAILY 08/05/23 08/05/23 ondansetron 4 mg disintegrating 4 mg PO Q8H 08/05/23 08/05/23 tablet <Leigh Cortes PA-C - Last Filed: 12/02/23 14:11> Allergies/Adverse reactions: Allergies Allergy/AdvReac Type Severity Reaction Status Date / Time No Known Allergies Allergy Verified 10/25/23 18:48 <Leigh Cortes PA-C - Last Filed: 12/02/23 14:11> Review of Systems Review of Systems: All systems reviewed & are unremarkable except as noted in HPI an
[2023-12-02 14:38] LABS: Basophils Percent Auto 0.3 % (0.2-1.2); Eosinophils Absolute Auto 1.6 K/mm3 (0-0.3); Eosinophils Percent Auto 13.1 % (0-4.4); Hematocrit 42.2 % (37.0-47.0); Hemoglobin 13.3 g/dL (12.0-15.0); Immature Granulocyte Absolute 0.04 K/mm3 (0.00-0.031); Immature Granulocyte Percent A 0.3 % (0-0.5); Lymphocytes Absolute Auto 2.13 K/mm3 (0.9-3.2); Mean Corpuscular HGB Conc 31.5 g/dl (32-36); Mean Corpuscular Hemoglobin 30.6 pg (26-34); Mean Platelet Volume 9.1 fl (7.4-10.4); Monocytes Absolute Auto 0.6 K/mm3 (0.1-0.6); Monocytes Percent Auto 4.9 % (2.6-8.5); Neutrophils Absolute Auto 7.5 K/mm3 (1.3-6.7); Neutrophils Percent Auto 63.4 % (45.5-73.1); Platelet Count Result 271 k/mm3 (150-375); Red Blood Count 4.35 M/mm3 (4.2-5.4); Red Cell Distribution Width 13.1 % (11.5-14.5); White Blood Count 11.8 K/mm3 (4.5-10.0)
[2023-12-02 14:52] LABS: Alanine Aminotransferase 40 U/L (6-35); Albumin Level 3.2 g/dL (3.5-5.1); Alkaline Phosphatase 144 U/L (38-126); Anion Gap 5 mmol/L (8-16); Aspartate Amino Transferase 34 U/L (14-36); Bilirubin,Total 0.4 mg/dL (0.2-1.3); Blood Urea Nitrogen 27 mg/dL (7-17); Carbon Dioxide 20 mmol/L (22-30); Chloride 110 mmol/L (98-107); Estimated CRCL calculation 33 ml/min; Estimated Glomerular Filt Rate 27; Glucose 153 mg/dL (65-110); Lipase 144 U/L (23-300); Potassium 4.9 mmol/L (3.4-5.0); Sodium 135 mmol/L (137-145)
[2023-12-02 15:02] LABS: Add Urine Microscopic? YES; Appearance Urine Turbid (Clear); Bacteria Urine 4+ /hpf; Bilirubin Urine Negative (Negative); Blood Urine 2+ (Negative); Color Urine Yellow (Yellow); Glucose Urine UA Trace mg/dL (Negative); Ketones Urine Negative (Negative); Leukocyte Esterase Ur 2+ LEU/UL (Negative); Need Manual Microscopic Reviewed; Nitrate Urine Negative (Negative); Protein Urine 4+ mg/dL (Negative); RBC Urine 21-50 /hpf (0-2); Specific Grav Ur 1.014 (1.001-1.035); Squamous Epithelial Cell Urine Few /hpf (Few); Urobilinogen Urine 0.2 mg/dL (<2.0); WBC Urine >100 /hpf; pH Urine 5.5 (5.0-9.0)
== END 2023-12-02 18:35 | disposition home or self-care (01) ==
PROVIDERS: Physician Assistant; Emergency Provider Emergency Medicine; PCP Physician Assistant
DX: N39.0 Urinary tract infection, site not specified (principal); R10.9 Unspecified abdominal pain; E11.22 Type 2 diabetes mellitus with diabetic chronic kidney disease; I13.2 Hypertensive heart and chronic kidney disease with heart failure and with stage 5 chronic kidney disease, or end stage renal disease; I50.9 Heart failure, unspecified; N18.6 End stage renal disease; E78.5 Hyperlipidemia, unspecified
CPT/HCPCS: 36415; 80053; 81001; 81025; 83036; 83690; 85025; 87086; 87186; 96365; 99284; J0696

== ENCOUNTER 2024-01-07 13:20 | Emergency (ER) | payer BC, SELFPAY ==
[2024-01-07] VITALS (10 sets, daily range): BP systolic 191–221; BP diastolic 86–122; PULSE 107–112; RESP 14–24; TEMP 37.1; O2SAT 99–100
--- NOTE | ~2024-01-07 | CT_ITS ---
EXAMINATION: CT abdomen pelvis w con DATE: 01/07/2024 16:43 INDICATION: Nausea and vomiting. Diarrhea. Abdominal pain. TECHNIQUE: Computed tomography (CT) of the abdomen and pelvis was performed with 100 mL Omnipaque 350 intravenous contrast. Automated exposure control and iterative reconstruction technique were employe d. The dose-length product was 896.24 mGy-cm. COMPARISON: CT abdomen and pelvis 08/04/2023 FINDINGS: The visualized portions of the lung bases demonstrate mild chronic interstitial lung diseas e. There are centrilobular nodules in left lower lobe, consistent with mild pneumonia. No pleural eff usion. The cardiomegaly is noted. No pericardial effusion. There is a catheter tip in right atrium. N o pericardial effusion. The liver and gallbladder are normal. There is a 1.9 cm hypodense mass in the spleen. The pancreas and adrenal glands are normal. There is cortical thinning of the kidneys. There are no dilated loops of bowel. The appendix is normal. There are no pathologically enlarged lymph no jennifer. There is no free intraperitoneal fluid. There is a 2.2 cm) cyst in right ovary. There is mild os teoarthritis of the hips. There is mild lumbar spondylosis. IMPRESSION: 1. Mild left lower lobe pneumonia. 2. Stable 1.9 cm hypodense mass in the spleen, most likely granulomatous disease or a hemangioma. Reviewed, dictated and finalized at location E. [employer] SALES CONSULTANT IMPRESSION: 1. Mild left lower lobe pneumonia. 2. Stable 1.9 cm hypodense mass in the spleen, most likely granulomatous diseas e or a hemangioma.
--- NOTE | 2024-01-07 13:31 | ECG_ITS ---
Measurements Intervals [place] Rate: 107 P: 73 AK: 168 QRS: -19 QRSD: 88 T: 31 QT: 343 QTc: 459 Interpretive Statements SINUS TACHYCARDIA DELAYED PRECORDIAL R/S TRANSITION MINIMAL Q WAVES- HIGH LATERAL LEADS ABNORMAL ECG COMPARED TO ECG 08/12/2023 22:16:14 SINUS TACHYCARDIA NOW PRESENT Electronically Signed On 01-07-2024 14:10:57 SUPERVISOR FRAME SAMPLE AND PATTERN by Azar Cook D.O.
--- NOTE | 2024-01-07 14:07 | ED.NAVMDI ---
HPI - Nausea/Vomiting/Diarrhea General Chief complaint: Nausea/Vomiting/Diarrhea Stated complaint: N/V & abd pain Time Seen by Provider: 01/07/24 13:46 History of Present Illness HPI Narrative: Patient is a 33-year-old female with a history of diabetes, CHF, ESRD on dialysis (Saturdays) presenting with nausea vomiting. Patient states that it started last night after dialysis. She has been vomiting despite taking Zofran. States that she can not eat because it causes abdominal pain. No diarrhea, constipation, melena, hematochezia. Has not missed any dialysis sessions. Was unable to take her morning meds this morning due to her nausea and vomiting. She does still make urine. No fevers, chest pain, shortness of breath, cough. Related Data Home Medications Medication Instructions Recorded Confirmed amlodipine 10 mg tablet 10 mg PO DAILY 08/04/23 08/05/23 carvedilol 12.5 mg tablet 12.5 mg PO BID 08/04/23 08/05/23 insulin lispro 100 unit/mL See Rx Instructions .Route .COMPLEX 08/04/23 08/05/23 subcutaneous solution nystatin 100,000 unit/gram topical 1 applic topical PRN 08/04/23 08/05/23 powder potassium chloride 20 mEq 20 meq PO DAILY 08/04/23 08/05/23 tablet,extended release(part/cryst) ascorbic acid (vitamin C) 500 mg 500 mg PO BID 08/05/23 08/05/23 tablet collagenase clostridium histo. 250 1 applic topical DAILY 08/05/23 08/05/23 unit/gram topical ointment (Santyl) ferrous sulfate 325 mg (65 mg 325 mg PO DAILY 08/05/23 08/05/23 iron) tablet melatonin 3 mg PO HS 08/05/23 08/05/23 multivitamin 1 tablet PO DAILY 08/05/23 08/05/23 ondansetron 4 mg disintegrating 4 mg PO Q8H 08/05/23 08/05/23 tablet Allergies Allergy/AdvReac Type Severity Reaction Status Date / Time No Known Allergies Allergy Verified 10/25/23 18:48 Review of Systems Review of Systems: All systems reviewed & are unremarkable except as noted in HPI and below PMFSH Past Medical History Medical History Anemia CHF (congestive heart failure) Chronic heel ulcer Diabetes mellitus Diabetic nephropathy with proteinuria Hyperlipidemia Hypertension Surgical History Surgical History History of left below knee amputation (~12/2022) Due to osteomyelitis Family History Family History Father Diabetes mellitus Mother Obesity Hypertension Sibling Diabetes mellitus, Onset Age: 28 Sibling Unknown family medical history Does not see a doctor Social History Social History Social History: The patient reports that 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 Since August 2022 she moved in with her sister. She has had a severe significant decline in her health and December 2021 had left above the knee amputation. She has been in out of correction and rehab facilities since that time. She is a lifelong nonsmoker. She used to rarely smoke marijuana. She had no significant alcohol use history. She does not have any children. Code status: DNR/DNI (per patient request) Surrogate decision maker: Nikkokeishapastor Nunez (sister) Smoking status: Never smoker Alcohol intake: never Substance use: former Substance use type: marijuana Lack of Transportation: No Lack of Food: Never True Current Housing: I Have Housing Concerned About Future Housing: No Difficulty Paying Gas/Electric Bills: No Difficulty Paying for Meds: No Currently Unemployed: No Education: High School Diploma/GED Difficulty w/ Childcare or Family Care: No Spiritual care concerns: No Exam Narrative: GENERAL: Nontoxic, appears uncomfortable, pleasant cooperative HEAD: Normocephalic, atraumatic. EYES: PERRLA and EOMI. ENT: mucous membranes tacky NECK
[2024-01-07] MEDS: ONDANSETRON INJ 4 MG/2 ML VIAL IV PUSH (14:11)
[2024-01-07] MEDS: SODIUM CHLORIDE 0.9% IV 500 ML 999 ML IV CONT ×2 (14:11→17:05)
[2024-01-07 14:31] LABS: Hematocrit 42.4 % (37.0-47.0); Mean Corpuscular HGB Conc 30.7 g/dl (32-36); Mean Corpuscular Hemoglobin 29.7 pg (26-34); Mean Platelet Volume 9.7 fl (7.4-10.4); Platelet Count Result 281 k/mm3 (150-375); Red Blood Count 4.37 M/mm3 (4.2-5.4); Red Cell Distribution Width 13.1 % (11.5-14.5); White Blood Count 21.5 K/mm3 (4.5-10.0)
--- NOTE | 2024-01-07 14:32 | PC.NURSE ---
Emesis after receiving Zofran. ERP aware.
[2024-01-07 14:42] LABS: Alanine Aminotransferase 38 U/L (6-35); Albumin Level 3.9 g/dL (3.5-5.1); Alkaline Phosphatase 183 U/L (38-126); Anion Gap 12 mmol/L (8-16); Aspartate Amino Transferase 22 U/L (14-36); Bilirubin,Total 0.5 mg/dL (0.2-1.3); Blood Urea Nitrogen 39 mg/dL (7-17); Calcium 9.5 mg/dL (8.4-10.2); Carbon Dioxide 24 mmol/L (22-30); Chloride 102 mmol/L (98-107); Estimated CRCL calculation 26 ml/min; Estimated Glomerular Filt Rate 20; Glucose 231 mg/dL (65-110); Lipase 31 U/L (23-300); Potassium 3.6 mmol/L (3.4-5.0); Sodium 138 mmol/L (137-145)
[2024-01-07] MEDS: PROCHLORPERAZINE EDISYLATE 10 MG/2 ML VIAL IV PUSH (15:00)
[2024-01-07 15:09] LABS: Band Neutrophils Percent 1 % (0-6); Hypochromasia 1+ (NORMAL); Monocytes Absolute Manual 0.86 K/mm3 (0.1-0.90); Monocytes Percent Manual 4 % (3-9); Neutrophils Absolute Manual 19.13 K/mm3 (1.7-7.2); Neutrophils Percent Manual 88 % (46-73); Platelet Estimate Adequate (Adequate); Schistocytes None Seen (NORMAL); Total Cells Counted 100
[2024-01-07] MEDS: lisinopriL 20 MG TABLET PO (15:41)
[2024-01-07] MEDS: carvediloL 12.5 MG TABLET PO (15:41)
[2024-01-07] MEDS: amLODIPine BESYLATE 5 MG TABLET 10 MG PO (15:42)
[2024-01-07 16:36] LABS: Appearance Urine Turbid (Clear); Bacteria Urine 4+ /hpf; Bilirubin Urine Negative (Negative); Blood Urine 3+ (Negative); Color Urine Yellow (Yellow); Glucose Urine UA 3+ mg/dL (Negative); Ketones Urine Negative (Negative); Leukocyte Esterase Ur Negative LEU/UL (Negative); Need Manual Microscopic Reviewed; Nitrate Urine Negative (Negative); Non Pathogenic Casts >20; Protein Urine 4+ mg/dL (Negative); RBC Urine >100 /hpf (0-2); Specific Grav Ur 1.027 (1.001-1.035); Squamous Epithelial Cell Urine Occasional /hpf (Few); Urobilinogen Urine 0.2 mg/dL (<2.0); WBC Urine >100 /hpf; pH Urine 5.5 (5.0-9.0)
[2024-01-07 16:45] LABS: Add Urine Microscopic? YES
[2024-01-07] MEDS: cefTRIAXone 2 GM/NS 100 ML 2 GM/100 ML BAG IVPB (17:04)
--- NOTE | 2024-01-07 17:32 | PC.NURSE ---
No further emesis. Offers no c/o.
[2024-01-07] MEDS: DOXYCYCLINE HYCLATE 100 MG TABLET PO (18:58)
== END 2024-01-07 19:51 | disposition home or self-care (01) ==
PROVIDERS: Emergency Provider Emergency Medicine; PCP Physician Assistant
DX: N39.0 Urinary tract infection, site not specified (principal); J18.9 Pneumonia, unspecified organism; R16.1 Splenomegaly, not elsewhere classified; I11.0 Hypertensive heart disease with heart failure; I50.9 Heart failure, unspecified; E11.9 Type 2 diabetes mellitus without complications; Z79.4 Long term (current) use of insulin
CPT/HCPCS: 36415; 74177; 80053; 81001; 81025; 83690; 85025; 87077; 87086; 87088; 87186; 93005; 96361; 96365; 96375; 99284; A9270; J0696; J0780; J2405; J7040; Q9967

== ENCOUNTER 2024-01-14 05:27 | Emergency (ER) | payer BC, SELFPAY ==
[2024-01-14] VITALS (7 sets, daily range): BP systolic 145–161; BP diastolic 80–88; PULSE 89–94; RESP 14–17; TEMP 36.6; O2SAT 98–100
--- NOTE | ~2024-01-14 | XR_ITS ---
Portable chest x-ray Comparison: 08/15/2023 Clinical History: Bilateral shoulder pain Findings: Right-sided central venous line is unchanged. Lungs are clear, without focal consolidation or pleural effusion. Cardiomediastinal silhouette is stable. Bones and soft tissues are unremarkabl e. Impression: Clear lungs. Support line, as above. Reviewed, dictated and finalized at location . Impression: Clear lungs. Support line, as above.
--- NOTE | ~2024-01-14 | CT_ITS ---
Clinical Indication: Chest pain CT Scan of the Chest with Contrast: Technique: Contiguous sections were acquired throughout the chest after intravenous administration of 100 cc of Omnipaque 350. Dose reduction technique was used on this scan by utilizing automated expos ure control and iterative reconstruction technique. The dose-length product (DLP) was 927.28 mGy-cm. COMPARISON: 08/04/2023 Findings: There is no evidence of any significant mediastinal, hilar or axillary lymphadenopathy. No large cent ral pulmonary embolus seen. Evaluation for more peripheral pulmonary emboli suboptimal due to timing of the contrast bolus.. There is no evidence of aortic dissection or aneurysm. There is no evidence of pleural or pericardial effusion. There are patchy areas of groundglass opacity as well as several focal scattered areas of tree-in-bud opacity and probable small peripheral nodules or impacted airways. Images through the upper abdomen reveal no abnormalities. Impression: No large central pulmonary embolus. Evaluation for smaller, more peripheral pulmonary emboli is subop timal due to timing of the contrast bolus. Patchy areas of groundglass opacity, tree-in-bud opacity, and small peripheral nodules or impacted ai rways. Findings are most compatible with small airways infection or other atypical infectious process . Reviewed, dictated and finalized at location . Impression: No large central pulmonary embolus. Evaluation for smaller, more peripheral pul monary emboli is suboptimal due to timing of the contrast bolus. Patchy areas of groundglass opacity, tree-in-bud opacity, and small peripheral nodules or impacted airways. Findings are most compatible with small airways in fection or other atypical infectious process.
--- NOTE | 2024-01-14 06:01 | ECG_ITS ---
Measurements Intervals [place] Rate: 94 P: 37 IN: 176 QRS: -9 QRSD: 92 T: 40 QT: 369 QTc: 462 Interpretive Statements SINUS RHYTHM POSSIBLE LEFT ATRIAL ENLARGEMENT MINIMAL Q WAVES- HIGH LATERAL LEADS BORDERLINE ECG COMPARED TO ECG 01/07/2024 13:32:06 SINUS RHYTHM NOW PRESENT Electronically Signed On 01-14-2024 6:43:56 CDT by Azar Cook D.O.
[2024-01-14] MEDS: ASPIRIN 81 MG CHEWABLE TABLET 324 MG PO (06:21)
[2024-01-14] MEDS: MORPHINE SULFATE (*CRX) 4 MG/ML INJ IV PUSH (06:23)
[2024-01-14 06:28] LABS: Hematocrit 33.9 % (37.0-47.0); Hemoglobin 10.7 g/dL (12.0-15.0); Red Blood Count 3.53 M/mm3 (4.2-5.4); White Blood Count 16.8 K/mm3 (4.5-10.0)
[2024-01-14 06:29] LABS: Basophils Absolute Auto 0.1 K/mm3 (0.0-0.1); Basophils Percent Auto 0.5 % (0.2-1.2); Eosinophils Absolute Auto 0.8 K/mm3 (0-0.3); Eosinophils Percent Auto 4.8 % (0-4.4); Immature Granulocyte Absolute 0.61 K/mm3 (0.00-0.031); Immature Granulocyte Percent A 3.6 % (0-0.5); Lymphocytes Absolute Auto 2.59 K/mm3 (0.9-3.2); Lymphocytes Percent Auto 15.4 % (18.3-44.2); Mean Corpuscular HGB Conc 31.6 g/dl (32-36); Mean Corpuscular Hemoglobin 30.3 pg (26-34); Mean Platelet Volume 9.3 fl (7.4-10.4); Monocytes Absolute Auto 2.2 K/mm3 (0.1-0.6); Monocytes Percent Auto 12.9 % (2.6-8.5); Neutrophils Absolute Auto 10.6 K/mm3 (1.3-6.7); Neutrophils Percent Auto 62.8 % (45.5-73.1); Platelet Count Result 351 k/mm3 (150-375); Red Cell Distribution Width 13.1 % (11.5-14.5)
--- NOTE | 2024-01-14 06:30 | ED.GENADULT ---
HPI - General Adult General Chief complaint: Extremity Injury, Upper <Juan Huizar MD - Last Filed: 01/14/24 06:52> Stated complaint: bilateral arm pain x 1 week <Juan Huizar MD - Last Filed: 01/14/24 06:52> Time Seen by Provider: 01/14/24 05:49 <Juan Huizar MD - Last Filed: 01/14/24 06:52> History of Present Illness HPI narrative: Patient is a 33-year-old female who presents emergency department with chief complaint of bilateral shoulder and chest pain. Patient reports that she was seen in the emergency department last Friday was diagnosed with UTI and pneumonia the patient states that she has been back at the facility and started having pain in bilateral shoulders it has been getting worse the patient reports the pain is worse with movement and improved with rest the patient also reports that the pain is radiating to her chest and reports that at some causing her some mild shortness of breath. <Juan Huizar MD - Last Filed: 01/14/24 06:52> Related Data Home medications: Home Medications Medication Instructions Recorded Confirmed amlodipine 10 mg tablet 10 mg PO DAILY 08/04/23 08/05/23 carvedilol 12.5 mg tablet 12.5 mg PO BID 08/04/23 08/05/23 insulin lispro 100 unit/mL See Rx Instructions .Route .COMPLEX 08/04/23 08/05/23 subcutaneous solution nystatin 100,000 unit/gram topical 1 applic topical PRN 08/04/23 08/05/23 powder potassium chloride 20 mEq 20 meq PO DAILY 08/04/23 08/05/23 tablet,extended release(part/cryst) ascorbic acid (vitamin C) 500 mg 500 mg PO BID 08/05/23 08/05/23 tablet collagenase clostridium histo. 250 1 applic topical DAILY 08/05/23 08/05/23 unit/gram topical ointment (Santyl) ferrous sulfate 325 mg (65 mg 325 mg PO DAILY 08/05/23 08/05/23 iron) tablet melatonin 3 mg PO HS 08/05/23 08/05/23 multivitamin 1 tablet PO DAILY 08/05/23 08/05/23 ondansetron 4 mg disintegrating 4 mg PO Q8H 08/05/23 08/05/23 tablet <Juan Huizar MD - Last Filed: 01/14/24 06:52> Allergies/adverse reactions: Allergies Allergy/AdvReac Type Severity Reaction Status Date / Time No Known Allergies Allergy Verified 10/25/23 18:48 <Juan Huizar MD - Last Filed: 01/14/24 06:52> Review of Systems Review of Systems: A 10 system review of systems was completed on the patient and is negative except for what is stated in the HPI. Nursing and ancillary documentation was reviewed. <Juan Huizar MD - Last Filed: 01/14/24 06:52> [facility] Past Medical History Medical History: Medical History Anemia CHF (congestive heart failure) Chronic heel ulcer Diabetes mellitus Diabetic nephropathy with proteinuria Hyperlipidemia Hypertension <Juan Huizar MD - Last Filed: 01/14/24 06:52> Surgical History Surgical History: Surgical History History of left below knee amputation (~12/2022) Due to osteomyelitis <Juan Huizar MD - Last Filed: 01/14/24 06:52> Family History Family History: Family History Father Diabetes mellitus Mother Obesity Hypertension Sibling Diabetes mellitus, Onset Age: 28 Sibling Unknown family medical history Does not see a doctor <Juan Huizar MD - Last Filed: 01/14/24 06:52> Social History Social History: Social History Social History: The patient reports that 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 Since August 2022 she moved in with her sister. She has had a severe significant decline in her health and December 2021 had left above the knee amputation. She has been in out of [place] [facility] and rehab facilities since that time
[2024-01-14 06:39] LABS: INR 1.1; Lactic Acid Reflex 0.8 mmol/L (0.7-2.0); Prothrombin Time 14.4 Seconds (11.1-14.7)
[2024-01-14 06:40] LABS: Anion Gap 7 mmol/L (8-16); Blood Urea Nitrogen 29 mg/dL (7-17); Carbon Dioxide 20 mmol/L (22-30); Chloride 104 mmol/L (98-107); Estimated CRCL calculation 16 ml/min; Estimated Glomerular Filt Rate 11; Glucose 184 mg/dL (65-110); Partial Thromboplastin Time 34.3 Seconds (22.3-36.8); Potassium 3.9 mmol/L (3.4-5.0); Sodium 131 mmol/L (137-145)
[2024-01-14 06:41] LABS: Alanine Aminotransferase 82 U/L (6-35); Albumin Level 2.8 g/dL (3.5-5.1); Alkaline Phosphatase 199 U/L (38-126); Aspartate Amino Transferase 50 U/L (14-36); Bilirubin,Total 0.6 mg/dL (0.2-1.3); Lipase 32 U/L (23-300)
[2024-01-14 06:51] LABS: NT Pro B Type Natriuretic Pept 6310 pg/mL (19.9-100); Troponin I 0.019 ng/mL (0.000-0.034)
[2024-01-14 07:05] LABS: Influenza A QL RT-PCR Negative (Negative); Influenza B QL RT-PCR Negative (Negative); RSV RNA, RT-PCR Negative (Negative); SARS-CoV-2 RNA PCR Negative (Negative)
[2024-01-14 07:06] LABS: Procalcitonin 0.8 ng/mL
--- NOTE | 2024-01-14 09:05 | ECG_ITS ---
Measurements Intervals [place] Rate: 89 P: 38 OR: 178 QRS: -8 QRSD: 94 T: 11 QT: 377 QTc: 460 Interpretive Statements SINUS RHYTHM POSSIBLE LEFT ATRIAL ENLARGEMENT DELAYED PRECORDIAL R/S TRANSITION BORDERLINE ECG COMPARED TO ECG 01/14/2024 06:16:30 NO SIGNIFICANT CHANGES Electronically Signed On 01-14-2024 9:25:13 CDT by Azar Cook D.O.
[2024-01-14 09:53] LABS: Troponin I 0.017 ng/mL (0.000-0.034)
== END 2024-01-14 12:00 | disposition home or self-care (01) ==
PROVIDERS: Emergency Provider Emergency Medicine; PCP Physician Assistant
DX: M25.512 Pain in left shoulder (principal); M25.511 Pain in right shoulder; Z20.822 Contact with and (suspected) exposure to COVID-19; I50.9 Heart failure, unspecified; I11.0 Hypertensive heart disease with heart failure; E11.21 Type 2 diabetes mellitus with diabetic nephropathy; E78.5 Hyperlipidemia, unspecified; Z66 Do not resuscitate; Z87.440 Personal history of urinary (tract) infections; Z87.01 Personal history of pneumonia (recurrent); Z89.512 Acquired absence of left leg below knee; Z79.4 Long term (current) use of insulin; R94.31 Abnormal electrocardiogram [ECG] [EKG]
CPT/HCPCS: 36415; 71045; 71275; 80053; 83605; 83690; 83735; 83880; 84145; 84484; 85025; 85610; 85730; 87637; 93005; 96374; 99284; A9270; J2270; Q9967

== ENCOUNTER 2024-02-16 09:03 | Inpatient (IN) | payer BC, SELFPAY ==
[2024-02-16] VITALS (21 sets, daily range): BP systolic 120–145; BP diastolic 66–82; PULSE 88–100; RESP 16–23; TEMP 36.4; O2SAT 91–99; BMI 34.1
--- NOTE | ~2024-02-16 | US_ITS ---
EXAMINATION: US axilla LT DATE: 02/20/2024 12:59 INDICATION: Left axillary mass. TECHNIQUE: Multiple grayscale and Doppler ultrasound images of the abdomen were obtained. COMPARISON: Chest CT 02/16/2024 FINDINGS: There is edema and fluid in the muscle and subcutaneous fat around the left shoulder. IMPRESSION: 1. Edema and fluid in the muscle and subcutaneous fat around the left shoulder, consistent with myosi tis and cellulitis. It is not clear if any of the fluid would be drainable. Left shoulder CT with con trast is recommended. Reviewed, dictated and finalized at location E. IMPRESSION: 1. Edema and fluid in the muscle and subcutaneous fat around the left shoulder, consistent with myositis and cellulitis. It is not clear if any of the fluid w ould be drainable. Left shoulder CT with contrast is recommended.
--- NOTE | ~2024-02-16 | MR_ITS ---
EXAMINATION: MR shoulder LT wo con DATE: 02/22/2024 11:36 INDICATION: Left shoulder osteomyelitis. TECHNIQUE: Magnetic resonance imaging (MRI) of the left shoulder was performed without intravenous co ntrast. Sequences included axial PD-weighted FS FSE, coronal oblique PD-weighted FS FSE and T2-weight ed FS FSE, and sagittal oblique T2-weighted FS FSE and T1-weighted FSE. COMPARISON: Left shoulder CT 02/21/2024 FINDINGS: Coracoacromial arch: The acromion undersurface is curved in morphology (type II). There is an erosion of the undersurface of the acromion with edema-like marrow signal intensity in the acromion. There is mild acromioclavic ular joint osteoarthritis. There is severe subacromial/subdeltoid bursitis with loculations in thickn ess measuring up to 1.8 cm. Rotator cuff: There is mild supraspinatus and infraspinatus tendinopathy. Teres minor tendon is normal. There is mo derate subscapularis tendinopathy. No tear. There is edema involving the rotator cuff muscle bellies, consistent with myositis. An abscess in teres minor muscle belly is contiguous with the severe subac romial/subdeltoid bursitis. Biceps tendon and glenoid labrum: Biceps tendon is in bicipital groove. There is mild intra-articular biceps tendinopathy. There is deg eneration of superior glenoid labrum without well-defined tear. Fluid: There is a small glenohumeral joint effusion. Bones/cartilage: There is edema-like marrow signal intensity in the humeral head. There is partial-thickness cartilag e loss of glenoid and humeral head. There is edema of the deltoid muscle and biceps muscle, consisten t with myositis. There is a partially visualized abscess with myositis involving left pectoralis amber r muscle. IMPRESSION: 1. Severe infectious subacromial/subdeltoid bursitis (abscess) with extension of an abscess into mayi s minor muscle belly. Myositis of the rotator cuff muscle bellies and deltoid muscle. 2. Osteomyelitis involving acromion and humeral head. 3. Worsened visualized abscess and myositis involving left pectoralis major muscle. 4. Mild glenohumeral joint chondrosis and mild acromioclavicular joint osteoarthritis. 5. Small glenohumeral joint effusion. Reviewed, dictated and finalized at location E. IMPRESSION: 1. Severe infectious subacromial/subdeltoid bursitis (abscess) with extension o f an abscess into teres minor muscle belly. Myositis of the rotator cuff muscle bellies and deltoid muscle. 2. Osteomyelitis involving acromion and humeral head. 3. Worsened visualized abscess and myositis involving left pectoralis major mus samantha. 4. Mild glenohumeral joint chondrosis and mild acromioclavicular joint osteoart hritis. 5. Small glenohumeral joint effusion.
--- NOTE | ~2024-02-16 | CT_ITS ---
CT OF EXAMINATION: CT shoulder LT w con DATE: 02/21/2024 09:37 INDICATION: TECHNIQUE: Computed tomography (CT) of the was performed without intravenous contrast. Automated expo sure control and iterative reconstruction technique were employed. The dose-length product was 539.48 mGy-cm. COMPARISON: None FINDINGS: Normal mineralization. Joint spaces maintained. No fracture or dislocation. Focal erosion along the u ndersurface of the acromion. No fracture or dislocation. Multiloculated fluid collection about the le ft shoulder, predominantly within the subacromial subdeltoid bursal spaces but also noted anteriorly, along the subscapularis muscle. Increased glenohumeral joint fluid is not definitively identified bu t is also not excluded. Reticulonodular, linear and subsegmental left lung consolidation with bronchi al calcifications. IMPRESSION: Rim enhancing fluid collections concerning for abscess/infectious about the shoulder, with adjacent m yositis/cellulitis. Glenohumeral capsular involvement is not definitively seen, but not excluded. Focal erosion on the acromial undersurface concerning for osteomyelitis. Fluid collections adjacent to the lateral humeral head and posterior to the humeral head may be justice ble to needle aspiration, either under ultrasound or CT guidance. Pulmonary findings may represent respiratory bronchiolitis and atelectasis, depending on the clinical context. Reviewed, dictated and finalized at location K. IMPRESSION: Rim enhancing fluid collections concerning for abscess/infectious about the agustin ulder, with adjacent myositis/cellulitis. Glenohumeral capsular involvement is not definitively seen, but not excluded. Focal erosion on the acromial undersurface concerning for osteomyelitis. Fluid collections adjacent to the lateral humeral head and posterior to the hum eral head may be amenable to needle aspiration, either under ultrasound or CT g uidance. Pulmonary findings may represent respiratory bronchiolitis and atelectasis, dep ending on the clinical context.
--- NOTE | ~2024-02-16 | XR_ITS ---
EXAMINATION: XR shoulder RT min 2V DATE: 02/22/2024 15:38 INDICATION: Decreased range of motion of right shoulder. TECHNIQUE: 3 views of right shoulder were obtained. COMPARISON: Chest CT 02/16/2024 FINDINGS: Bone alignment is normal. No fracture. There are erosions of distal clavicle. The glenohume ral joint is normal. There is soft tissue gas posterior to the humeral head. A right internal jugular central venous catheter is seen with tip in the right atrium. IMPRESSION: 1. Erosions of distal right clavicle suspicious for septic arthritis. 2. Soft tissue gas posterior to right humeral head, consistent with infection. Right shoulder MRI wit hout and with contrast is recommended. Reviewed, dictated and finalized at location E. IMPRESSION: 1. Erosions of distal right clavicle suspicious for septic arthritis. 2. Soft tissue gas posterior to right humeral head, consistent with infection. Right shoulder MRI without and with contrast is recommended.
--- NOTE | ~2024-02-16 | US_ITS ---
Limited Abdominal Sonogram: Real-time sonographic imaging of the right upper quadrant was performed. Clinical History: Abdominal pain Findings: The liver appears normal with no evidence of mass lesion or bile duct dilatation. Main por pk vein demonstrates normal direction of flow. The gallbladder is well distended, and appears normal with no evidence of gallstone or wall thickening. The common bile duct measures 5 mm. The visualize d pancreas, aorta, and IVC are unremarkable. Impression: No significant abnormality seen. Reviewed, dictated and finalized at location . Impression: No significant abnormality seen.
--- NOTE | ~2024-02-16 | XR_ITS ---
Clinical Indication: Pain PA and lateral views of the chest: Comparison: 01/14/2024 Findings: Right-sided central venous line is present. There is extensive hazy central left lung airsp tiffany disease. There is mild haziness right lung base.. Cardiomediastinal silhouette is within normal limits. Bones and soft tissues are unremarkable. Impression: Extensive central left lung hazy airspace disease and mild haziness right lung base. Correlate for as ymmetric pulmonary edema versus bilateral pneumonia. Support line, as above. Reviewed, dictated and finalized at location M. Impression: Extensive central left lung hazy airspace disease and mild haziness right lung base. Correlate for asymmetric pulmonary edema versus bilateral pneumonia. Support line, as above.
--- NOTE | ~2024-02-16 | CT_ITS ---
EXAMINATION: CTA chest PE abdomen pel DATE: 02/16/2024 17:07 INDICATION: Chest pain. TECHNIQUE: Computed tomography angiography (CTA) of the chest was performed with 100 mL Omnipaque-350 intravenous contrast timed to evaluate the pulmonary arteries. Coronal maximum intensity projection 3D-reconstructions were created by the technologist. Computed tomography (CT) of the abdomen and pelv is was performed with intravenous contrast. Automated exposure control and iterative reconstruction t echnique were employed. The dose-length product was 2603.89 mGy-cm. COMPARISON: Chest CT 01/14/2024 FINDINGS: CTA chest: There are airspace and interstitial opacities in the upper lobes and lower lobes with arch itectural distortion. There are parenchymal calcifications in the lungs bilaterally. No bronchiectasi s or honeycombing. No pleural effusion. Cardiomegaly is noted. No pericardial effusion. There is a ri ght internal jugular central venous catheter with tip in right atrium. There is no pulmonary embolus. CT abdomen and pelvis: The liver, gallbladder, spleen, pancreas, adrenal glands, and left kidney are normal. There is gas in a calyx in right kidney. There is gas in the bladder, likely from recent inst rumentation. There are no dilated loops of bowel. The appendix is normal. There are no pathologically enlarged lymph nodes. There is no free intraperitoneal fluid. Thoracolumbar levoscoliosis is noted. IMPRESSION: 1. No pulmonary embolus. Sensitivity is mildly decreased by motion artifact. 2. Worsened diffuse lung disease, consistent with pneumonia superimposed on chronic lung disease. Reviewed, dictated and finalized at location E. IMPRESSION: 1. No pulmonary embolus. Sensitivity is mildly decreased by motion artifact. 2. Worsened diffuse lung disease, consistent with pneumonia superimposed on chr onic lung disease.
--- NOTE | 2024-02-16 09:49 | ED.GENADULT ---
HPI - General Adult General Chief complaint: Unspecified Stated complaint: bodyaches Time Seen by Provider: 02/16/24 09:38 History of Present Illness HPI narrative: Patient is a 33-year-old female with history of ESRD on hemodialysis, HTN, anemia, CHF, diabetes here with diffuse body pains. She states that the last few weeks she has been noting pain in her bilateral upper extremities. She was seen at this hospital, diagnosed with muscle strains and started on muscle relaxers. She states that over the last couple days she started having diffuse body aches and thought that maybe she was coming down with a illness. She endorses subjective fever, has not had an elevated temperature at home. She denies cough. She does note chest pain abdominal pain however neither of these pains are significantly more than her diffuse body pains. No recent trauma. She is a hemodialysis patient, dialyzes Friday, Friday, mobility architect is Dr. Millan, did do her full dialysis run on Friday. No known sick contacts. She was out of facility, she is currently being treated for chronic wound on her right foot, had dressing changed yesterday, notes that it is looking well and does not seem to be any worse than it normally is. Denies any drainage or warmth from this area. Related Data Home Medications Medication Instructions Recorded Confirmed amlodipine 10 mg tablet 10 mg PO DAILY 08/04/23 02/16/24 carvedilol 12.5 mg tablet 12.5 mg PO BID 08/04/23 02/16/24 insulin lispro 100 unit/mL See Rx Instructions .Route .COMPLEX 08/04/23 02/16/24 subcutaneous solution nystatin 100,000 unit/gram topical 1 applic topical PRN 08/04/23 02/16/24 powder potassium chloride 20 mEq 20 meq PO DAILY 08/04/23 02/16/24 tablet,extended release(part/cryst) ascorbic acid (vitamin C) 500 mg 500 mg PO BID 08/05/23 02/16/24 tablet ferrous sulfate 325 mg (65 mg 325 mg PO DAILY 08/05/23 02/16/24 iron) tablet melatonin 5 mg PO HS PRN Prophylaxis 08/05/23 02/16/24 multivitamin 1 tablet PO DAILY 08/05/23 02/16/24 ondansetron 4 mg disintegrating 4 mg PO Q8H 08/05/23 02/16/24 tablet bisacodyl 10 mg rectal suppository 10 mg RECTAL DAILY PRN Constipation 02/16/24 02/16/24 cholecalciferol (vitamin D3) 10 10 mcg PO DAILY 02/16/24 02/16/24 mcg (400 unit) capsule (Vitamin D3) clonidine HCl 0.2 mg tablet 0.2 mg PO DAILY 02/16/24 02/16/24 cyclobenzaprine 10 mg tablet 10 mg PO Q8H PRN muscle spasm 02/16/24 02/16/24 famotidine 10 mg chewable tablet 10 mg PO DAILY 02/16/24 02/16/24 loperamide 2 mg capsule 2 mg PO Q8H PRN Diarrhea 02/16/24 02/16/24 magnesium citrate (Citroma oral 300 ml PO DAILY PRN Constipation 02/16/24 02/16/24 solution) metoclopramide HCl 5 mg tablet 5 mg PO BID PRN Nausea And Vomiting 02/16/24 02/16/24 metolazone 5 mg tablet 10 mg PO DAILY 02/16/24 02/16/24 metronidazole 500 mg tablet 500 mg DAILY 02/16/24 02/16/24 naproxen 250 mg tablet 500 mg PO DAILY 02/16/24 02/16/24 pantoprazole 40 mg tablet,delayed 40 mg PO DAILY 02/16/24 02/16/24 release silver sulfadiazine 1 % topical 1 applic topical DAILY 02/16/24 02/16/24 cream (Silvadene) tramadol 50 mg tablet 50 mg PO QID PRN Moderate Pain 02/16/24 02/16/24 (Scale Score 5-6) Allergies Allergy/AdvReac Type Severity Reaction Status Date / Time No Known Allergies Allergy Verified 10/25/23 18:48 Review of Systems Review of Systems: All systems reviewed & are unremarkable except as noted in HPI and below PMFSH Past Medical History Medical History Anemia CHF (congestive heart failure) Chronic heel ulcer Diabetes mellitus Diabetic nephropathy with proteinuria Hyperlipidemia Hypertension Surgical History Surgical History History of left below knee amputation (~12/2022) Due to osteomyelitis Family History Family History (Updated 02/16/24 @ 19:54 by Obed
[2024-02-16 10:23] LABS: Basophils Absolute Auto 0.1 K/mm3 (0.0-0.1); Basophils Percent Auto 0.3 % (0.2-1.2); Eosinophils Absolute Auto 3.7 K/mm3 (0-0.3); Eosinophils Percent Auto 19.3 % (0-4.4); Hemoglobin 7.6 g/dL (12.0-15.0); Immature Granulocyte Absolute 0.12 K/mm3 (0.00-0.031); Immature Granulocyte Percent A 0.6 % (0-0.5); Immature Reticulocyte Fraction 31.8 % (3.0-15.9); Lymphocytes Absolute Auto 1.32 K/mm3 (0.9-3.2); Mean Corpuscular HGB Conc 29.2 g/dl (32-36); Mean Corpuscular Hemoglobin 29.1 pg (26-34); Mean Corpuscular Volume 99.6 fl (80-100); Mean Platelet Volume 8.7 fl (7.4-10.4); Monocytes Absolute Auto 1.9 K/mm3 (0.1-0.6); Monocytes Percent Auto 9.8 % (2.6-8.5); Platelet Count Result 514 k/mm3 (150-375); Red Blood Count 2.61 M/mm3 (4.2-5.4); Red Cell Distribution Width 13.1 % (11.5-14.5); Reticulocyte Hemoglobin Conten 25.1 pg (28.2-36.6); Reticulocyte Percent 2.84 % (0.7-4.3); Reticulocytes Absolute 0.07 10^6/uL (0.02-0.10)
[2024-02-16 10:37] LABS: Alanine Aminotransferase 69 U/L (6-35); Alkaline Phosphatase 606 U/L (38-126); Anion Gap 12 mmol/L (4-12); Aspartate Amino Transferase 47 U/L (14-36); Bilirubin,Total 1.1 mg/dL (0.2-1.3); Blood Urea Nitrogen 59 mg/dL (7-17); Calcium 8.5 mg/dL (8.4-10.2); Carbon Dioxide 16 mmol/L (22-30); Chloride 107 mmol/L (98-107); Estimated CRCL calculation 12 ml/min; Estimated Glomerular Filt Rate 8; Glucose 180 mg/dL (65-110); Magnesium 2.2 mg/dL (1.6-2.3); Sodium 135 mmol/L (137-145)
[2024-02-16 10:58] LABS: Platelet Estimate Increased (Adequate)
[2024-02-16 10:59] LABS: Hypochromasia 1+; Schistocytes Rare
[2024-02-16 11:50] LABS: Magnesium 2.2 mg/dL (1.6-2.3)
[2024-02-16 11:56] LABS: Troponin I < 0.012 ng/mL (0.000-0.034)
[2024-02-16 12:03] LABS: Lactic Acid Reflex 0.7 mmol/L (0.7-2.0)
[2024-02-16 12:06] LABS: CRP 22.2 mg/dL (<1.0)
[2024-02-16 12:26] LABS: Influenza A QL RT-PCR Negative (Negative); Influenza B QL RT-PCR Negative (Negative); RSV RNA, RT-PCR Negative (Negative); SARS-CoV-2 RNA PCR Negative (Negative)
[2024-02-16 13:05] LABS: INR 1.1; Prothrombin Time 14.6 Seconds (11.1-14.7)
[2024-02-16 13:06] LABS: Partial Thromboplastin Time 41.3 Seconds (22.3-36.8)
[2024-02-16] MEDS: CEFEPIME 2 GM/NS 50 ML 2 GM/50 ML BAG IVPB (13:42)
[2024-02-16] MEDS: ONDANSETRON INJ 4 MG/2 ML VIAL IV PUSH (13:42)
[2024-02-16] MEDS: MORPHINE SULFATE (*CRX) 4 MG/ML INJ IV PUSH (13:42)
[2024-02-16] MEDS: VANCOMYCIN 2,000 MG/NS 500 ML 2,000 MG/500 ML BAG 250 MG IVPB (14:31)
[2024-02-16 14:50] LABS: Iron 29 ug/dL (37-170)
[2024-02-16 14:59] LABS: Percent Iron Saturation 18 % (20-50)
[2024-02-16 15:58] LABS: Folic Acid 12.1 ng/mL (2.76->20)
--- NOTE | 2024-02-16 16:33 | PC.NURSE ---
pt strongly declines straight catheter for a urine sample at this time. educated pt on the purpose of this test and they declined any urine sample. doctor notified
[2024-02-16 16:47] LABS: SPREG INTERNAL CONTROL Positive; Serum Qual hCG Negative
[2024-02-16] MEDS: DEXTROSE 50% 25 GM/50 ML SYRINGE IV PUSH (17:11)
[2024-02-16] MEDS: CALCIUM GLUCONATE 1,000 MG/10 ML VIAL 1000 MG IV PUSH (17:11)
[2024-02-16] MEDS: DOXYCYCLINE 100 MG/NS 100 ML 100 MG/100 ML BAG IVPB (17:11)
[2024-02-16] MEDS: SODIUM ZIRCONIUM CYCLOSILICATE 10 GM POWD.PACK PO (17:11)
[2024-02-16] MEDS: INSULIN HUMAN REGULAR (*BKC) 100 UNITS/ML 10 UNITS IV PUSH (17:11)
[2024-02-16] MEDS: PANTOPRAZOLE SODIUM IV 40 MG VIAL 80 MG IV PUSH (17:11)
[2024-02-16 18:19] LABS: MRSA (PCR) DETECTED (NOT DETECTE)
--- NOTE | 2024-02-16 19:26 | PC.NURSE ---
pt states they do NOT have sickle cell anemia. this was stated by ems but pt states this is not part of her hx
[2024-02-16 20:04] LABS: Hepatitis B Surface Antigen Negative (Negative)
[2024-02-16 20:13] LABS: Glucose Point of Care 85 mg/dl (65-105)
[2024-02-16 20:23] LABS: Hepatitis B Surface Anti Res Positive
[2024-02-16 21:25] LABS: Anion Gap 13 mmol/L (4-12); Blood Urea Nitrogen 61 mg/dL (7-17); Calcium 8.4 mg/dL (8.4-10.2); Carbon Dioxide 13 mmol/L (22-30); Chloride 107 mmol/L (98-107); Estimated CRCL calculation 12 ml/min; Estimated Glomerular Filt Rate 7; Glucose 125 mg/dL (65-110); Potassium 5.7 mmol/L (3.4-5.0); Sodium 133 mmol/L (137-145)
[2024-02-16] MEDS: MEROPENEM 500 MG in SODIUM CHLORIDE 0.9% IV 100 ML 200 ML IVPB (21:41)
[2024-02-16] MEDS: MORPHINE SULFATE (*CRX) 2 MG/ML INJ IV PUSH (22:55)
[2024-02-17] VITALS (32 sets, daily range): BP systolic 112–161; BP diastolic 54–79; PULSE 89–104; RESP 16–24; TEMP 36.1–37.6; O2SAT 91–98
--- NOTE | 2024-02-17 04:21 | PM.IMHP ---
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 Patient reports that the pain started in her shoulders into her arms. It is now generalized. She just feels achy all over except for her feet. She reports that her feet feel fine hand do not hurt despite chronic large decubitus ulcer/diabetic foot ulcer on the right heel. She denies having any fevers or chills. She has not had any nausea or vomiting. She reports a fair appetite. She has chronic vision loss and only see shadows of the right eye and no vision in left eye. Her vision loss occurred suddenly in early 2022. She still has occasional headaches associated with pain the hind her eyes with this is unchanged from her baseline. She denies any diarrhea or changes in bowel habits. She has will stool softeners and antidiarrheals ordered at the snf. She has chronic urinary incontinence but denies any changes in frequency. She usually has 3-5 moderate voids a day. She often times does not know when she is going to void in has incontinence. She denies any abdominal pain. The last time I saw the patient was prior to initiation of dialysis therapy. She no longer has a associated peripheral edema that she had during my prior evaluation. She undergoes dialysis Friday. All the end of she is still on potassium supplements at the snf. When the patient arrived to the intermediate unit her chronic right foot wound was unwrapped. At that time the patient's wound was quite low odiforus. Nursing clean the wound and applied Mepilex. When I went to evaluate the patient patient had the heel braced against the foot board and had managed to work past the pillow that was meant to cushion her heel. In the ER patient white count was 20 and hemoglobin was 7.3 down from prior 10.7 last month. The patient states her breathing feels similar as to when she needs to have dialysis. He is not having any chest pain. She is requesting pain medications. Review of Systems Review of Systems: 12 systems were reviewed with pertinent positives and negatives per HPI. Except as documented in the HPI, all other systems were reviewed and are negative. [facility] Past Medical History Medical History (Updated 02/18/24 @ 01:16 by Nadia Coreas DO) Anemia in chronic kidney disease Blind in both eyes (~03/2023) Occurred acutely March 2023 CHF (congestive heart failure) Chronic heel ulcer Chronic heel ulcer on the left foot developed November 2022 with acute decompensation and subsequent above the knee amputation, no unfortunately do developed a right heel ulcer the fall of 2022 that is been persistent Diabetes mellitus Diabetic nephropathy with proteinuria Nephrotic range Diabetic neuropathy Diastolic heart failure secondary to hypertension EF 70% with grade 2 diastolic dysfunction echocardiogram August 2023 End-stage renal disease on hemodialysis Hemodialysis initiated August 2023 Glaucoma Hyperlipidemia Hypertension Nephrotic syndrome Surgical History Surgical History (Updated 02/18/24 @ 01:30 by Nadia Coreas DO) History of left below knee amputation (~12/2022) Due to osteomyelitis Status post insertion of dialysis catheter (08/2023) Right subclavian Family History Family History Father Diabetes mellitus Hypertension Mother Hypertension Obesity Sibling Diabetes mellitus, Onset Age: 28 Sibling Unknown family medical history Does not see a doctor Diabetes mellitus Social History Social History (Updated 02/18/24 @ 00:52 by Nadia Coreas DO) Social History
--- NOTE | 2024-02-17 06:17 | ADMGEN ---
Admitted at 1934 02/16/24. This patient, Gay Canales, was admitted to IMU Room 200-01. Patient/family oriented to hospital policies and general routines including ID bracelet, bed and alarms, visiting hours, pain management, procedures, bathroom and other care routines, personal items, smoking policy, room service/diet, and visiting hours. Information on how to activate the Rapid Response Team has been discussed. Patient/Family are encouraged to report perceived risks to care and to ask questions if they do not understand what they are told or what they should do.
--- NOTE | 2024-02-17 06:18 | PC.NURSE ---
The patient's wound has been mislabeled as the L Heel in imaging and on the chart. The photos should read as R heel. The charting has a note attached and has been discontinued as being on the left. Patient has had an AKA on the left.
[2024-02-17 06:58] LABS: Lactic Acid Reflex 0.8 mmol/L (0.7-2.0)
[2024-02-17 07:00] LABS: Basophils Absolute Auto 0.1 K/mm3 (0.0-0.1); Basophils Percent Auto 0.3 % (0.2-1.2); Eosinophils Absolute Auto 3.1 K/mm3 (0-0.3); Hematocrit 24.7 % (37.0-47.0); Hemoglobin 7.3 g/dL (12.0-15.0); Immature Granulocyte Absolute 0.18 K/mm3 (0.00-0.031); Immature Granulocyte Percent A 0.9 % (0-0.5); Lymphocytes Absolute Auto 1.51 K/mm3 (0.9-3.2); Lymphocytes Percent Auto 7.4 % (18.3-44.2); Mean Corpuscular HGB Conc 29.6 g/dl (32-36); Mean Corpuscular Hemoglobin 29.4 pg (26-34); Mean Corpuscular Volume 99.6 fl (80-100); Mean Platelet Volume 8.8 fl (7.4-10.4); Monocytes Absolute Auto 1.9 K/mm3 (0.1-0.6); Monocytes Percent Auto 9.1 % (2.6-8.5); Neutrophils Absolute Auto 13.8 K/mm3 (1.3-6.7); Neutrophils Percent Auto 67.3 % (45.5-73.1); Platelet Count Result 474 k/mm3 (150-375); Red Blood Count 2.48 M/mm3 (4.2-5.4); Red Cell Distribution Width 13.4 % (11.5-14.5); White Blood Count 20.5 K/mm3 (4.5-10.0)
[2024-02-17 07:28] LABS: Anion Gap 14 mmol/L (4-12); Blood Urea Nitrogen 67 mg/dL (7-17); Calcium 8.5 mg/dL (8.4-10.2); Carbon Dioxide 11 mmol/L (22-30); Chloride 108 mmol/L (98-107); Estimated CRCL calculation 12 ml/min; Estimated Glomerular Filt Rate 7; Glucose 132 mg/dL (65-110); Potassium 6.3 mmol/L (3.4-5.0); Sodium 133 mmol/L (137-145); Vancomycin Random 22.3 ug/mL (10-20)
[2024-02-17 07:36] LABS: Platelet Estimate Increased (Adequate)
[2024-02-17 07:37] LABS: Hypochromasia 1+
[2024-02-17 07:38] LABS: Anisocytosis 1+; Burr Cells 1+; Macrocytosis 1+ (NORMAL); Schistocytes Rare
--- NOTE | 2024-02-17 08:00 | PC.NURSE ---
Patient left floor to go to dialysis at 0755 via bed.
--- NOTE | 2024-02-17 08:43 | WPDGICN ---
GI Consult Note Consult date/time: 02/17/24 08:43 Reason for consult: Anemia and heme-positive stools HPI: Gay Canales is a 33 year old female with past medical-surgical history of anemia, CHF, diabetes, neuropathy, HLD, end-stage renal disease receiving hemodialysis and HTN. she presented to the emergency room yesterday with complaints of lower extremity pain. GI was consulted for anemia and heme-positive stools. ENDOSCOPY HISTORY: EGD: Bx results: COLONOSCOPY: Bx results: IMAGING: CTA chest/abd/pelvis w/contrast 02/16/2024 FINDINGS: CTA chest: There are airspace and interstitial opacities in the upper lobes and lower lobes with architectural distortion. There are parenchymal calcifications in the lungs bilaterally. No bronchiectasis or honeycombing. No pleural effusion. Cardiomegaly is noted. No pericardial effusion. There is a right internal jugular central venous catheter with tip in right atrium. There is no pulmonary embolus. CT abdomen and pelvis: The liver, gallbladder, spleen, pancreas, adrenal glands, and left kidney are normal. There is gas in a calyx in right kidney. There is gas in the bladder, likely from recent instrumentation. There are no dilated loops of bowel. The appendix is normal. There are no pathologically enlarged lymph nodes. There is no free intraperitoneal fluid. Thoracolumbar levoscoliosis is noted. IMPRESSION: 1. No pulmonary embolus. Sensitivity is mildly decreased by motion artifact. 2. Worsened diffuse lung disease, consistent with pneumonia superimposed on chronic lung disease. Chest x-ray 02/16/2024 Impression: Extensive central left lung hazy airspace disease and mild haziness right lung base. Correlate for asymmetric pulmonary edema versus bilateral pneumonia. Abdominal Ultrasound 02/16/2024 Findings:? The liver appears normal with no evidence of mass lesion or bile duct dilatation. Main portal vein demonstrates normal direction of flow. The gallbladder is well distended, and appears normal with no evidence of gallstone or wall thickening. The common bile duct measures 5 mm.? The visualized pancreas, aorta, and IVC are unremarkable.? Impression: No significant abnormality seen. CT abdomen /pelvis W/ contrast 01/07/2024 FINDINGS: The visualized portions of the lung bases demonstrate mild chronic interstitial lung disease. There are centrilobular nodules in left lower lobe, consistent with mild pneumonia. No pleural effusion. The cardiomegaly is noted. No pericardial effusion. There is a catheter tip in right atrium. No pericardial effusion. The liver and gallbladder are normal. There is a 1.9 cm hypodense mass in the spleen. The pancreas and adrenal glands are normal. There is cortical thinning of the kidneys. There are no dilated loops of bowel. The appendix is normal. There are no pathologically enlarged lymph nodes. There is no free intraperitoneal fluid. There is a 2.2 cm) cyst in right ovary. There is mild osteoarthritis of the hips. There is mild lumbar spondylosis. IMPRESSION: 1. Mild left lower lobe pneumonia. 2. Stable 1.9 cm hypodense mass in the spleen, most likely granulomatous disease or a hemangioma. [facility] Past Medical History Medical History (Updated 02/20/24 @ 12:30 by Saumya Rosado PA-C) Anemia in chronic kidney disease Blind in both eyes (~03/2023) Occurred acutely March 2023 CHF (congestive heart failure) Chronic heel ulcer Chronic heel ulcer on the left foot developed November 2022 with acute decompensation and subsequent above the knee amputation, no unfortunately do developed a right heel ulcer the fall of 2022 that is been persistent Diabetes mellitus Diabetic nephropathy with proteinuria Nephrotic range Diabetic neuropathy Diastolic heart failure secondary to hypertension EF 70% with grade 2 diastolic dysfunction echocardiogram August 2023 End-stage renal disease on hemodialysis Hemodialysis initiated [facility]
--- NOTE | 2024-02-17 09:30 | PM.CNNEP ---
Assessment and Plan Assessment and plan (1) End stage renal disease: Code(s): N18.6 - End stage renal disease Status: Chronic Assessment and Plan: HD today continue T/T/S dialysis schedule follow electrolyte, volume status, and clearance (2) Hyperkalemia: Code(s): E87.5 - Hyperkalemia Status: Acute Assessment and Plan: as noted on admission s/p medical management further stabilization with dialysis today follow trend of K+ (3) Bilateral pneumonia: Qualifiers: Lung location: unspecified part of lung Pneumonia type: due to unspecified organism Qualified Code(s): J18.9 - Pneumonia, unspecified organism Code(s): J18.9 - Pneumonia, unspecified organism Status: Acute Assessment and Plan: as noted by admission imaging follow culture data on antibiotics (4) Chronic heel ulcer: Qualifiers: Laterality: right Non-pressure ulcer stage: unspecified non-pressure ulcer stage Qualified Code(s): L97.419 - Non-pressure chronic ulcer of right heel and midfoot with unspecified severity Code(s): L97.409 - Non-pressure chronic ulcer of unspecified heel and midfoot with unspecified severity Status: Chronic Assessment and Plan: wound care consulted wound culture pending on antibiotics (5) Volume overload: Code(s): E87.70 - Fluid overload, unspecified Status: Chronic Assessment and Plan: chronic issue at baseline push fluid removal as tolerated with dialysis continue ongoing attmept to achieve euvolemia (6) Hypertension: Code(s): I10 - Essential (primary) hypertension Status: Chronic Assessment and Plan: reasonable control at this time follow trend of hemodynamics (7) Anemia: Code(s): D64.9 - Anemia, unspecified Status: Chronic Assessment and Plan: due to ESRD and acute illness Epogen with HD follow H/H (8) Diabetes mellitus: Code(s): E11.9 - Type 2 diabetes mellitus without complications Status: Chronic Assessment and Plan: follow accu-cheks glycemic control per hospitalists I will continue follow the patient with you while she remains hospitalized to make further recommendations as deemed necessary Thank you for allowing me to participate in the care this patient. History of Present Illness Reason for Consult Consult date: 02/17/24 Reason for consult: end stage renal disease Chief Complaint Chief complaint: Hyperkalemia/Pneumonia/Anemia History of Present Illness Narrative: The patient is a 33-year-old female with an extensive past medical history as outlined below who presented from her nursing facility due to pain all over. the patient stated the pain initially started into her shoulders and radiating to her arms. However, the current time, her pain is now generalized and throughout her entire body. She feels achy all over except for her feet. No reported history of fevers or chills and she denies any issues /problems with nausea or vomiting. She reports no diarrhea, hematochezia, melena or any other GI symptoms. In any case, given her generalized weakness and pain, her nursing facility since her to the emergency room for further assessment. Workup and evaluation emergency demonstrated patient be hemodynamically stable but in mild distress secondary to pain. Routine blood test demonstrated a significant leukocytosis, anemia with a hemoglobin of 7.3, and significant hyperkalemia in association with her chemistry that was consistent with her history of renal replacement therapy/dialysis. Given the concerns that her pain and muscle weakness related to early sepsis, appropriate cultures were obtained and she was initiated on IV antibiotic therapy with subsequent admission to the hospital for further evaluation and therapy. It should be noted that she did receive medical management for hyperkalemia
[2024-02-17] MEDS: EPOETIN ALFA 20,000 UNITS/ML VIAL 20000 UNITS IV PUSH (10:25)
[2024-02-17] MEDS: HEPARIN SODIUM 1,000 UNITS/ML VIAL 4000 UNITS IV PUSH (12:15)
[2024-02-17 12:20] LABS: Immature Reticulocyte Fraction 35.2 % (3.0-15.9); Reticulocyte Hemoglobin Conten 26.1 pg (28.2-36.6); Reticulocyte Percent 2.95 % (0.7-4.3); Reticulocytes Absolute 0.07 10^6/uL (0.02-0.10)
[2024-02-17] MEDS: MULTIVITAMINS THERAPEUTIC TAB (*BKC) 1 TABLET PO (12:37)
[2024-02-17] MEDS: FAMOTIDINE 10 MG TABLET PO (12:37)
[2024-02-17] MEDS: FERROUS SULFATE 325 MG TABLET DR PO (12:37)
[2024-02-17] MEDS: CHOLECALCIFEROL 400 UNITS TABLET (VIT D) PO (12:38)
[2024-02-17] MEDS: traMADol HCL (*CRX) 50 MG TABLET PO ×2 (12:38→20:41)
[2024-02-17] MEDS: lisinopriL 20 MG TABLET PO (12:39)
[2024-02-17] MEDS: cloNIDine HCL 0.2 MG TABLET PO (12:39)
[2024-02-17] MEDS: HEPARIN SODIUM 5,000 UNITS/ML VIAL 5000 UNITS SUB-Q ×2 (12:39→20:40)
[2024-02-17] MEDS: amLODIPine BESYLATE 5 MG TABLET 10 MG PO (12:39)
[2024-02-17] MEDS: COLLAGENASE OINT 30 GM TUBE 1 APPLIC TOPICAL (12:40)
[2024-02-17] MEDS: PANTOPRAZOLE SODIUM IV 40 MG VIAL IV PUSH ×2 (12:40→20:41)
--- NOTE | 2024-02-17 13:09 | P.PNCROSS_ITS ---
Event Note Event Note Event Note: patient underwent dialysis this morning. Additionally, Infectious Disease pha [email or web address] contacted me regarding ordered Flagyl and cefepime. He stated that meropenem will likely adequately cover the foot wound as well and recommended discontinuation cefepime and Flagyl.
[2024-02-17 13:49] LABS: Glucose Point of Care 101 mg/dl (65-105)
--- NOTE | 2024-02-17 15:49 | PM.IMPN ---
Progress Note: A&P Assessment and Plan (1) Bilateral pneumonia: Qualifiers: Lung location: unspecified part of lung Pneumonia type: due to unspecified organism Qualified Code(s): J18.9 - Pneumonia, unspecified organism Code(s): J18.9 - Pneumonia, unspecified organism Status: Acute Assessment and Plan: MRSA positive nares, Vancomycin and meropenem ordered. (2) Acute hyperkalemia: Code(s): E87.5 - Hyperkalemia Status: Acute Assessment and Plan: Potassium 6.3 this morning before dialysis. Recheck in the morning (3) Chronic heel ulcer: Qualifiers: Laterality: right Non-pressure ulcer stage: unspecified non-pressure ulcer stage Qualified Code(s): L97.419 - Non-pressure chronic ulcer of right heel and midfoot with unspecified severity Code(s): L97.409 - Non-pressure chronic ulcer of unspecified heel and midfoot with unspecified severity Status: Chronic Assessment and Plan: Right heel deep wound. Culture sent, on vancomycin and meropenem. Wound care consulted (4) Volume overload: Code(s): E87.70 - Fluid overload, unspecified Status: Acute Assessment and Plan: 4 liters removed during dialysis on 02/16 (5) ESRD needing dialysis: Code(s): N18.6 - End stage renal disease; Z99.2 - Dependence on renal dialysis Status: Chronic Assessment and Plan: Friday dialysis. Patient at 4 L removed today during dialysis. (6) Hypertension: Code(s): I10 - Essential (primary) hypertension Status: Chronic Assessment and Plan: Stable, continue home medications (7) Diabetes mellitus with chronic kidney disease: Code(s): E11.22 - Type 2 diabetes mellitus with diabetic chronic kidney disease Status: Chronic Assessment and Plan: ACHS fingerstick glucose with SSI ordered Time Spent With Patient Time with patient: 25 - 35 minutes Subjective Date/time seen: 02/17/24 15:49 Interval history: Patient underwent dialysis this morning. Additionally, Infectious Disease pharmacist contacted me regarding ordered Flagyl and cefepime. He stated that meropenem will likely adequately cover the foot wound as well and recommended discontinuation cefepime and Flagyl. Right heel wound culture obtained and wound care saw patient starting Santyl. MRSA nares positive. Pain all over improving with tramadol. Review of Systems Review of Systems: All systems reviewed & are unremarkable except as noted in HPI and below Exam Narrative: GENERAL: Ill-appearing, well-nourished, and in no acute distress. HEAD: Normocephalic, atraumatic. EYES: PERRLA and EOMI. ENT: Nares clear. Mucous membranes moist. NECK: Supple. CHEST: Clear to auscultation. No respiratory distress. right chest dialysis access in place HEART: Regular rate and rhythm. Normal peripheral pulses. ABDOMEN: Soft, diffusely tender, no rebound or guarding, nondistended. EXTREMITIES: Normal range of motion. No edema. s/p BKA on the left. SKIN: Warm, dry, no rash. NEURO: No focal deficits. Alert and oriented x3. PSYCH: Normal mood and affect. Objective Data Vital Signs Vital Signs: Vital Signs - 24 hr 02/16/24 16:25 02/16/24 16:01 02/16/24 17:05 Temperature Pulse Rate 93 92 95 Respiratory Rate 19 23 H Blood Pressure 120/67 123/68 Pulse Oximetry 92 92 Oxygen Delivery 02/16/24 17:31 02/16/24 18:01 02/16/24 19:00 Temperature Pulse Rate 93 94 93 Respiratory Rate 23 H 18 Blood Pressure 131/66 134/73 Pulse Oximetry 97 99 Oxygen Delivery 02/16/24 19:01 02/16/24 19:34 02/16/24 20:00 Temperature 36.4 C Pulse Rate 93 97 Respiratory Rate 22 H 19 Blood Pressure 125/71 132/75 Pulse Oximetry 93 93 Oxygen Delivery Room Air 02/16/24 23:33 02/16/24 22:00 02/16/24 20:00 Temperature 36.4 C Pulse Rate 100 96 97 Respiratory Rate 18 Blood Pressure 145/70 H Pulse Oximetry 97
[2024-02-17] MEDS: VANCOMYCIN 500 MG/NS 100 ML 500 MG/100 ML BAG 100 MG IVPB (16:00)
[2024-02-17 17:08] LABS: Glucose Point of Care 158 mg/dl (65-105)
--- NOTE | 2024-02-17 17:20 | WPDGICN ---
Assessment and Plan Assessment and plan (1) Bilateral pneumonia: Qualifiers: Lung location: unspecified part of lung Pneumonia type: due to unspecified organism Qualified Code(s): J18.9 - Pneumonia, unspecified organism Code(s): J18.9 - Pneumonia, unspecified organism Status: Acute Assessment and Plan: started on antibiotic, reviewed CT scan chest, no PE (2) Acute on chronic anemia: Code(s): D64.9 - Anemia, unspecified Status: Acute Assessment and Plan: noted drop in hgb but no overt gib right now with pneumonia, will give another 2 days or so before doing scopes unless obvious bleeding anemia could be multifactorial- she is on dialysis (last year had + FOBT) (3) Occult blood in stools: Code(s): R19.5 - Other fecal abnormalities Status: Acute Assessment and Plan: egd and colonoscopy when pneumonia improves (4) ESRD needing dialysis: Code(s): N18.6 - End stage renal disease; Z99.2 - Dependence on renal dialysis Status: Chronic Assessment and Plan: by nephrology (5) Diabetes mellitus with chronic kidney disease: Code(s): E11.22 - Type 2 diabetes mellitus with diabetic chronic kidney disease Status: Chronic (6) SIRS (systemic inflammatory response syndrome): Code(s): R65.10 - Systemic inflammatory response syndrome (SIRS) of non-infectious origin without acute organ dysfunction Status: Acute Assessment and Plan: leukocytosis, pneumonia (7) Total body pain: Code(s): R52 - Pain, unspecified Status: Acute (8) Hypertension: Code(s): I10 - Essential (primary) hypertension Status: Chronic GI Consult Note Consult date/time: 02/17/24 17:20 Reason for consult: acute on chronic anemia HPI: Gay Canales is a 33 year old female with history of ESRD on hemodialysis, s/p amputation leg 2021 now staying in a shelter, HTN, chronic anemia with hgb 10,? CHF,? diabetes here with diffuse body pains for last few days, also says that had fever. CT scan here revealed pneumonia, also leukocytosis wbc 20, hgb 7.5 (baseline 10), denies overt gib but never had scopes. Started on antibiotics. No overt gib. Review of Systems Constitutional: Constitutional: Reports chills Eyes: Eyes: Denies blurry vision ENT: Reports Normal hearing present Cardiovascular: Cardiovascular: Denies chest pain Respiratory: Respiratory: Reports cough Gastrointestinal: Gastrointestinal: Denies melena Genitourinary: Comments: on dialysis Musculoskeletal: Musculoskeletal: Reports arthralgias Integumentary/Breasts: Skin/Breast: Denies rash Neurologic: Denies Abnormal speech present Psychiatric: Psychiatric: Denies behavioral changes [facility] Past Medical History Medical History (Updated 02/17/24 @ 17:26 by Dinh Sanchez MD) Acute on chronic anemia Anemia CHF (congestive heart failure) Chronic heel ulcer Diabetes mellitus Diabetic nephropathy with proteinuria Hyperlipidemia Hypertension Occult blood in stools SIRS (systemic inflammatory response syndrome) Surgical History Surgical History History of left below knee amputation (~12/2022) Due to osteomyelitis Family History Family History (Updated 02/16/24 @ 19:54 by Geronimo Peters RN) Father Diabetes mellitus Hypertension Mother Hypertension Obesity Sibling Diabetes mellitus, Onset Age: 28 Sibling Unknown family medical history Does not see a doctor Diabetes mellitus Social History Social History Social History: The patient reports that 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 Since August 2022 she moved in with her sister. She has had a severe significant decline in her health and December 2021 had left above the knee amputation. She has been
[2024-02-17] MEDS: carvediloL 12.5 MG TABLET PO (18:09)
[2024-02-17] MEDS: ASCORBIC ACID 500 MG TABLET PO (18:09)
[2024-02-17] MEDS: CYCLOBENZAPRINE HCL 10 MG TABLET PO (20:41)
[2024-02-17] MEDS: MEROPENEM 500 MG in SODIUM CHLORIDE 0.9% IV 100 ML 200 ML IVPB (21:08)
[2024-02-17 21:43] LABS: Glucose Point of Care 187 mg/dl (65-105)
[2024-02-18] VITALS (28 sets, daily range): BP systolic 104–134; BP diastolic 52–79; PULSE 74–91; RESP 16–20; TEMP 36.1–36.9; O2SAT 82–100
[2024-02-18 04:50] LABS: Hematocrit 22.3 % (37.0-47.0); Mean Corpuscular Hemoglobin 28.6 pg (26-34); Mean Corpuscular Volume 95.3 fl (80-100); Mean Platelet Volume 9.1 fl (7.4-10.4); Platelet Count Result 505 k/mm3 (150-375); Red Blood Count 2.34 M/mm3 (4.2-5.4); Red Cell Distribution Width 13.2 % (11.5-14.5); White Blood Count 19.8 K/mm3 (4.5-10.0)
[2024-02-18 05:02] LABS: Albumin Level 2.8 g/dL (3.5-5.1); Anion Gap 10 mmol/L (4-12); Blood Urea Nitrogen 34 mg/dL (7-17); Carbon Dioxide 27 mmol/L (22-30); Chloride 100 mmol/L (98-107); Estimated CRCL calculation 16 ml/min; Estimated Glomerular Filt Rate 11; Glucose 164 mg/dL (65-110); Magnesium 2.1 mg/dL (1.6-2.3); Potassium 4.1 mmol/L (3.4-5.0); Sodium 137 mmol/L (137-145)
[2024-02-18 05:19] LABS: Hemoglobin 6.7 g/dL (12.0-15.0)
[2024-02-18 05:21] LABS: Eosinophils Absolute Manual 1.98 K/mm3 (0.02-0.50); Eosinophils Percent Manual 10 % (0-4); Lymphocytes Absolute Manual 1.18 K/mm3 (1.1-4.5); Monocytes Absolute Manual 0.59 K/mm3 (0.1-0.90); Monocytes Percent Manual 3 % (3-9); Neutrophils Percent Manual 81 % (46-73); Nucleated Red Blood Cells 2 %; Platelet Estimate Increased (Adequate); Total Cells Counted 100
[2024-02-18 05:22] LABS: Anisocytosis 1+; Hypochromasia 2+; Schistocytes Rare; Stomatocytes 1+
[2024-02-18] MEDS: CYCLOBENZAPRINE HCL 10 MG TABLET PO (05:50)
[2024-02-18] MEDS: traMADol HCL (*CRX) 50 MG TABLET PO (05:50)
--- NOTE | 2024-02-18 06:35 | PC.NURSE ---
with new orders for UA collection via straight catheter. Patient refused. Patient requested for her sister to be updated of her condition. Call placed to Aleyda. Aleyda verbalized understanding.
[2024-02-18 08:52] LABS: Glucose Point of Care 188 mg/dl (65-105)
[2024-02-18] MEDS: HEPARIN SODIUM 5,000 UNITS/ML VIAL 5000 UNITS SUB-Q ×2 (09:59→20:16)
[2024-02-18] MEDS: metOLazone 5 MG TABLET 10 MG PO (09:59)
[2024-02-18] MEDS: amLODIPine BESYLATE 5 MG TABLET 10 MG PO (09:59)
[2024-02-18] MEDS: MULTIVITAMINS THERAPEUTIC TAB (*BKC) 1 TABLET PO (09:59)
[2024-02-18] MEDS: FAMOTIDINE 10 MG TABLET PO (09:59)
[2024-02-18] MEDS: lisinopriL 20 MG TABLET PO (09:59)
[2024-02-18] MEDS: PANTOPRAZOLE SODIUM IV 40 MG VIAL IV PUSH ×2 (10:00→20:16)
[2024-02-18] MEDS: cloNIDine HCL 0.2 MG TABLET PO (10:00)
[2024-02-18] MEDS: ASCORBIC ACID 500 MG TABLET PO ×2 (10:00→18:34)
[2024-02-18] MEDS: CHOLECALCIFEROL 400 UNITS TABLET (VIT D) PO (10:00)
[2024-02-18] MEDS: TUBING, BLOOD PLUM PUMP TUBING 1 EACH XX ×2 (10:00→16:25)
[2024-02-18] MEDS: COLLAGENASE OINT 30 GM TUBE 1 APPLIC TOPICAL (10:00)
[2024-02-18] MEDS: carvediloL 12.5 MG TABLET PO ×2 (10:00→18:34)
[2024-02-18] MEDS: SILVER SULFADIAZINE 1% CR 400 GM JAR (*BKC) 1 APPLIC TOPICAL (10:01)
[2024-02-18] MEDS: SODIUM CHLORIDE 0.9% IV 250 ML 30 ML IV CONT ×2 (10:01→16:25)
--- NOTE | 2024-02-18 10:09 | PM.IMPN ---
Progress Note: A&P Assessment and Plan (1) SIRS (systemic inflammatory response syndrome): Code(s): R65.10 - Systemic inflammatory response syndrome (SIRS) of non-infectious origin without acute organ dysfunction Status: Acute Assessment and Plan: Meets SIRS criteria: WBC, blood cultures + - lactic acid: 0.8 - 30 mL/kg = 2862 ml - suspected source: pneumonia vs foot ulcer - blood cultures drawn on 02/15: staph aureus. Redrawn 02/17 - Wound culture 02/17/24: few gram + cocci - MRSA nares + - UA ordered - CXR: Extensive central left lung hazy airspace disease and mild haziness right lung base. Correlate for asymmetric pulmonary edema versus bilateral pneumonia. - Chest/abdomen/pelvis CTA: No pulmonary embolus. Sensitivity is mildly decreased by motion artifact. Worsened diffuse lung disease, consistent with pneumonia superimposed on chronic lung disease. (2) Anemia: Code(s): D64.9 - Anemia, unspecified Status: Acute Assessment and Plan: H/H 6.7/22.3 today. Requiring a blood transfusion. Will recheck an H/H at 5 following blood transfusion. - Iron panel: iron 29, TIBC 157, % saturation 18, Ferritin 594 - Continue home iron supplmentation - Sickle cell positive, absolute retic 0.07, % retic 2.95, retic hgb 26.1 - GI consulted due to ongoing anemia with heme-positive stools. Plan for EGD and colonoscopy 02/18 to evaluate possible GI cause of anemia. - Hematology consulted for new sickle cell diagnosis (3) Bilateral pneumonia: Qualifiers: Lung location: unspecified part of lung Pneumonia type: due to unspecified organism Qualified Code(s): J18.9 - Pneumonia, unspecified organism Code(s): J18.9 - Pneumonia, unspecified organism Status: Acute Assessment and Plan: - CXR: Extensive central left lung hazy airspace disease and mild haziness right lung base. Correlate for asymmetric pulmonary edema versus bilateral pneumonia. - Chest/abdomen/pelvis CTA: No pulmonary embolus. Sensitivity is mildly decreased by motion artifact. Worsened diffuse lung disease, consistent with pneumonia superimposed on chronic lung disease. - Complicating Factors: comorbidities - started on meropenem and vancomycin. Meropenem deescalated to cefepime. Vancomycin continued due to + MRSA nares. - Viral PCR: negative for Flu/COVID/RSV - MRSA nares: positive - 2L NC supplemental O2 requirement (baseline room air) - supportive treatment tyl - trend labs (4) End-stage renal disease on hemodialysis: Code(s): N18.6 - End stage renal disease; Z99.2 - Dependence on renal dialysis Status: Acute Assessment and Plan: Patient dialysis schedule is typically Friday//Friday. - BUN/Cr 34/5.5 today. - Recieved inpatient dialysis yesterday and had 4 L removed. - Nephrology following (5) Hypertension: Code(s): I10 - Essential (primary) hypertension Status: Chronic Assessment and Plan: Stable on home medication. Continue home medications. - amlodipine 10 mg daily - carvedilol 12.5 mg BID - lisinopril 20 mg daily - clonidine 0.2 mg daily (6) CHF (congestive heart failure): Qualifiers: Heart failure chronicity: acute on chronic Heart failure type: unspecified Qualified Code(s): I50.9 - Heart failure, unspecified Code(s): I50.9 - Heart failure, unspecified Status: Chronic Assessment and Plan: Echo 08/06/23: LV EF 70 % with grade II diastolic dysfunction. (7) Chronic heel ulcer: Qualifiers: Laterality: right Non-pressure ulcer stage: unspecified non-pressure ulcer stage Qualified Code(s): L97.419 - Non-pressure chronic ulcer of right heel and midfoot with unspecified severity Code(s): L97.409 - Non-pressure chronic ulcer of unspecified heel and midfoot with unspecified severity Status: Chronic Assessment and Plan: Chronic diabetic ulcer to right plantar heel. First documented on Aug 2023 when kyle Kim
--- NOTE | 2024-02-18 12:36 | PM.PNNEP ---
Progress Note: A&P Assessment and Plan (1) End stage renal disease: Code(s): N18.6 - End stage renal disease Status: Chronic Assessment and Plan: HD today continue T/T/S dialysis schedule follow electrolyte, volume status, and clearance (2) Bacteremia: Code(s): R78.81 - Bacteremia Status: Acute Assessment and Plan: noted by blood cultures potential sources include pneumonia, right heel wound and/or HD catheter... on antibiotics follow repeat cultures (3) Hyperkalemia: Code(s): E87.5 - Hyperkalemia Status: Acute Assessment and Plan: resolved as noted on admission s/p medical management further stabilization with dialysis follow trend of K+ (4) Bilateral pneumonia: Qualifiers: Lung location: unspecified part of lung Pneumonia type: due to unspecified organism Qualified Code(s): J18.9 - Pneumonia, unspecified organism Code(s): J18.9 - Pneumonia, unspecified organism Status: Acute Assessment and Plan: as noted by admission imaging culture data noted on antibiotics (5) Chronic heel ulcer: Qualifiers: Laterality: right Non-pressure ulcer stage: unspecified non-pressure ulcer stage Qualified Code(s): L97.419 - Non-pressure chronic ulcer of right heel and midfoot with unspecified severity Code(s): L97.409 - Non-pressure chronic ulcer of unspecified heel and midfoot with unspecified severity Status: Chronic Assessment and Plan: wound care following wound culture noted on antibiotics (6) Volume overload: Code(s): E87.70 - Fluid overload, unspecified Status: Chronic Assessment and Plan: chronic issue at baseline push fluid removal as tolerated with dialysis continue ongoing attmepts to achieve euvolemia (7) Hypertension: Code(s): I10 - Essential (primary) hypertension Status: Chronic Assessment and Plan: reasonable control at this time follow trend of hemodynamics (8) Anemia: Code(s): D64.9 - Anemia, unspecified Status: Chronic Assessment and Plan: due to ESRD and acute illness Epogen with HD follow H/H (9) Diabetes mellitus: Code(s): E11.9 - Type 2 diabetes mellitus without complications Status: Chronic Assessment and Plan: follow accu-cheks glycemic control per hospitalists Will continue to follow. Subjective Date/time seen: 02/18/24 12:36 Interval history: Follow-up for end stage renal disease on hemodialysis. Tolerated dialysis treatment yesterday without any issues or problems; noted low H/H by AM labs so PRBC transfusion ordered; positive blood culture noted; still feels a bit nauseated but respiratory status seems better. Exam Narrative: General: Large AA female sitting up bed in NAD Heart: normal S1 and S2; no rub Lungs: decreased breath sounds at bases Abdomen: obese but soft, nontender, nondistended, positive bowel sounds Extremities: no cyanosis or clubbing; s/p left AKA Skin: right heel with dressings in place Objective Data Vital Signs Vital Signs: Vital Signs Temp Pulse Resp BP Pulse Ox O2 Del Method O2 Flow Rate 02/18/24 12:10 97.9 F 77 20 119/68 95 02/18/24 11:10 97.8 F 79 20 124/66 94 02/18/24 10:00 83 02/18/24 08:00 85 02/18/24 08:00 Room Air 02/18/24 10:10 97.7 F 88 20 128/67 96 02/18/24 09:56 97.9 F 87 20 114/61 92 02/18/24 08:00 96.9 F L 88 18 104/56 L 82 L 02/18/24 07:24 92 Room Air 02/18/24 06:00 91 02/18/24 04:00 Room Air 02/18/24 04:00 91 02/18/24 04:35 97.7 F 89 18 112/52 L 90 02/18/24 02:00 87 02/18/24 00:58 97.0 F L 90 18 106/53 L 94 02/18/24 00:00 Room Air 02/18/24 00:00 87 02/17/24 22:00 96 02/17/24 20:00 94 02/17/24 20:00 Room Air 02/17/24 20:20
--- NOTE | 2024-02-18 12:36 | P.PNNP_ITS ---
Progress Note: A&P Assessment and Plan (1) End stage renal disease: Code(s): N18.6 - End stage renal disease Status: Chronic Assessment and Plan: * HD today * continue T/T/S dialysis schedule * follow electrolyte, volume status, and clearance (2) Bacteremia: Code(s): R78.81 - Bacteremia Status: Acute Assessment and Plan: * noted by blood cultures * potential sources include pneumonia, right heel wound and/or HD catheter... * on antibiotics * follow repeat cultures (3) Hyperkalemia: Code(s): E87.5 - Hyperkalemia Status: Acute Assessment and Plan: * resolved * as noted on admission * s/p medical management * further stabilization with dialysis * follow trend of K+ (4) Bilateral pneumonia: Qualifiers: Lung location: unspecified part of lung Pneumonia type: due to unspecified organism Qualified Code(s): J18.9 - Pneumonia, unspecified organism Code(s): J18.9 - Pneumonia, unspecified organism Status: Acute Assessment and Plan: * as noted by admission imaging * culture data noted * on antibiotics (5) Chronic heel ulcer: Qualifiers: Laterality: right Non-pressure ulcer stage: unspecified non-pressure ulcer stage Qualified Code(s): L97.419 - Non-pressure chronic ulcer of right heel and midfoot with unspecified severity Code(s): L97.409 - Non-pressure chronic ulcer of unspecified heel and midfoot with unspecified severity Status: Chronic Assessment and Plan: * wound care following * wound culture noted * on antibiotics (6) Volume overload: Code(s): E87.70 - Fluid overload, unspecified Status: Chronic Assessment and Plan: * chronic issue at baseline * push fluid removal as tolerated with dialysis * continue ongoing attmepts to achieve euvolemia (7) Hypertension: Code(s): I10 - Essential (primary) hypertension Status: Chronic Assessment and Plan: * reasonable control at this time * follow trend of hemodynamics (8) Anemia: Code(s): D64.9 - Anemia, unspecified Status: Chronic Assessment and Plan: * due to ESRD and acute illness * Epogen with HD * follow H/H (9) Diabetes mellitus: Code(s): E11.9 - Type 2 diabetes mellitus without complications Status: Chronic Assessment and Plan: * follow accu-cheks * glycemic control per hospitalists Will continue to follow. Subjective Date/time seen: 02/18/24 12:36 Interval history: Follow-up for end stage renal disease on hemodialysis. Tolerated dialysis treatment yesterday without any issues or problems; noted low H/H by AM labs so PRBC transfusion ordered; positive blood culture noted; still feels a bit nauseated but respiratory status seems better. Exam Narrative: General: Large AA female sitting up bed in NAD Heart: normal S1 and S2; no rub Lungs: decreased breath sounds at bases Abdomen: obese but soft, nontender, nondistended, positive bowel sounds Extremities: no cyanosis or clubbing; s/p left AKA Skin: right heel with dressings in place Objective Data Vital Signs Vital Signs: Vital Signs Temp Pulse Resp BP Pulse Ox O2 Del Method O2 Flow Rate 02/18/24 12:10 97.9 F 77 20 119/68 95 02/18/24 11:10 97.8 F 79 20 124/66 94
[2024-02-18 12:38] LABS: Glucose Point of Care 176 mg/dl (65-105)
--- NOTE | 2024-02-18 15:21 | WPDGIPROGNO ---
Progress Note: A&P Assessment and Plan (1) Occult blood in stools: Code(s): R19.5 - Other fecal abnormalities Status: Acute Assessment and Plan: egd and colonoscopy tomorrow to assess if gi source of anemia (2) Acute on chronic anemia: Code(s): D64.9 - Anemia, unspecified Status: Acute Assessment and Plan: she has baseline anemia but hgb much lower than baseline s/p blood transfusion (3) SIRS (systemic inflammatory response syndrome): Code(s): R65.10 - Systemic inflammatory response syndrome (SIRS) of non-infectious origin without acute organ dysfunction Status: Acute (4) Bilateral pneumonia: Qualifiers: Lung location: unspecified part of lung Pneumonia type: due to unspecified organism Qualified Code(s): J18.9 - Pneumonia, unspecified organism Code(s): J18.9 - Pneumonia, unspecified organism Status: Acute Assessment and Plan: on abx (5) End-stage renal disease on hemodialysis: Code(s): N18.6 - End stage renal disease; Z99.2 - Dependence on renal dialysis Status: Acute Subjective Date/time seen: 02/18/24 15:21 Interval history: overall feeling better and comfortable, no body aches she is getting blood transfusion no overt gib Review of Systems Review of Systems: All systems reviewed & are unremarkable except as noted in HPI and below Exam Narrative: GENERAL: Ill-appearing, well-nourished, and in no acute distress. HEAD: Normocephalic, atraumatic. EYES: PERRLA and EOMI. ENT: Nares clear. Mucous membranes moist. NECK: Supple. CHEST: Clear to auscultation. No respiratory distress. right chest dialysis access in place HEART: Regular rate and rhythm. Normal peripheral pulses. ABDOMEN: Soft, diffusely tender, no rebound or guarding, nondistended. EXTREMITIES: Normal range of motion. No edema. s/p BKA on the left. SKIN: Warm, dry, no rash. NEURO: No focal deficits. Alert and oriented x3. PSYCH: Normal mood and affect. Objective Data Vital Signs Vital Signs: Vital Signs - 24 hr 02/17/24 16:00 02/17/24 16:00 02/17/24 16:00 Temperature 97.8 F Pulse Rate 96 97 Respiratory Rate 18 Blood Pressure 134/61 Pulse Oximetry 93 Oxygen Delivery Room Air Oxygen Flow Rate 02/17/24 18:09 02/17/24 18:00 02/17/24 20:20 Temperature 97.7 F Pulse Rate 104 H 89 97 Respiratory Rate 18 Blood Pressure 112/57 L Pulse Oximetry 93 Oxygen Delivery Oxygen Flow Rate 02/17/24 20:00 02/17/24 20:00 02/17/24 22:00 Temperature Pulse Rate 94 96 Respiratory Rate Blood Pressure Pulse Oximetry Oxygen Delivery Room Air Oxygen Flow Rate 02/18/24 00:00 02/18/24 00:00 02/18/24 00:58 Temperature 97.0 F L Pulse Rate 87 90 Respiratory Rate 18 Blood Pressure 106/53 L Pulse Oximetry 94 Oxygen Delivery Room Air Oxygen Flow Rate 02/18/24 02:00 02/18/24 04:35 02/18/24 04:00 Temperature 97.7 F Pulse Rate 87 89 91 Respiratory Rate 18 Blood Pressure 112/52 L Pulse Oximetry 90 Oxygen Delivery Oxygen Flow Rate 02/18/24 04:00 02/18/24 06:00 02/18/24 07:24 Temperature Pulse Rate 91 Respiratory Rate Blood Pressure Pulse Oximetry 92 Oxygen Delivery Room Air Room Air Oxygen Flow Rate 02/18/24 08:00 02/18/24 09:56 02/18/24 10:10 Temperature 96.9 F L 97.9 F 97.7 F Pulse Rate 88 87 88 Respiratory Rate 18 20 20 Blood Pressure 104/56 L 114/61 128/67 Pulse Oximetry 82 L 92 96 Oxygen Delivery Oxygen Flow Rate 02/18/24 08:00 02/18/24 08:00 02/18/24 10:00 Temperature Pulse Rate 85 83 Respiratory Rate Blood Pressure Pulse Oximetry Oxygen Delivery Room Air Oxygen Flow Rate 02/18/24 12:00 02/18/24 11:10 02/18/24 12:10 Temperature 97.4 F L 97.8 F 97.9 F Pulse Rate 84 79 77 Respiratory Rate 18 20 20 Blood Pressure 115/79 124/66 119/68 Pulse Oximetry 99 94 95 Oxygen Delivery Oxygen Fl
[2024-02-18 16:11] LABS: Glucose Point of Care 198 mg/dl (65-105)
[2024-02-18] MEDS: BISACODYL 5 MG TABLET EC 20 MG PO (18:34)
[2024-02-18] MEDS: polyethylene glycoL 3350 238 GM BOTTLE PO (18:34)
[2024-02-18] MEDS: CEFEPIME 1 GM/NS 50 ML 1 GM/50 ML BAG IVPB (18:35)
[2024-02-18 20:05] LABS: Glucose Point of Care 220 mg/dl (65-105)
[2024-02-18 20:12] LABS: Hemoglobin 9.2 g/dL (12.0-15.0)
[2024-02-19] VITALS (34 sets, daily range): BP systolic 100–171; BP diastolic 60–84; PULSE 69–91; RESP 16–23; TEMP 36.1–37.4; O2SAT 91–100
--- NOTE | 2024-02-19 | ECHO_ITS ---
Patient Info Name: Gay Canales Age: 33 years : 1990 Gender: Female Ht: 67 in Wt: 207 lbs BSA: 2.14 m2 HR: 65 bpm Heart Rhythm: Sinus Rhythm Technical Quality: Good Exam Date: 02/19/2024 9:04 AM Exam Location: Echo Lab Patient Status: Inpatient Admit Date: 02/16/2024 Staff Ordering Physician: Saumya Rosado PA-C Scientist Engineer: Chano Fitzgerald RDCS Attending Provider: Yuli Alvarado MD Referring Physician: Ashlee VILLANUEVA; Exam Type: CA echo doppler color flow Study Info Indications - blood culture staph positive Complete two-dimensional, color flow and Doppler transthoracic echocardiogram is performed. Summary 1. Left ventricular chamber dimension is normal. 2. Left ventricular systolic function is normal, estimated at 60-65%. 3. There is mildly increased left ventricular wall thickness. 4. The left ventricular diastolic function is grade I diastolic dysfunction. 5. Right ventricular systolic function is normal. 6. Linear artifact in the right atrium suggestive of catheter(s), pacemaker lead(s), or ICD lead(s). 7. There is mild tricuspid valve regurgitation. 8. There is trivial posterior pericardial effusion. 9. Reason for this study was bacteremia. No vegetation appreciated on this study, however, cannot rule out. If concerned about infective endocarditis, consider transesophageal echocardiogram (MATT). Left Ventricle Left ventricular chamber dimension is normal. Left ventricular systolic function is normal, estimated at 60-65%. There is mildly increased left ventricular wall thickness. The left ventricular diastolic function is grade I diastolic dysfunction. Right Ventricle Right ventricular chamber dimension is normal. Right ventricular systolic function is normal. Left Atria Left atrial chamber dimension is normal. Right Atria Linear artifact in the right atrium suggestive of catheter(s), pacemaker lead(s), or ICD lead(s). Right atrial chamber dimension is normal. Atrial Septum Intact interatrial septum visualized by color flow imaging. Aortic Valve The aortic valve is probable trileaflet. There is no aortic valve stenosis. There is no aortic valve regurgitation. Pulmonic Valve The pulmonic valve is not well visualized. There is trace pulmonic regurgitation. Mitral Valve There is trace mitral valve regurgitation. Tricuspid Valve There is mild tricuspid valve regurgitation. Pericardium/Pleural There is trivial posterior pericardial effusion. Inferior Vena Cava Normal inferior vena cava with <50% collapse upon inspiration consistent with elevated right atrial pressure, 8 mmHg. Aorta The aortic root size at the sinus of Valsalva is normal. Left Ventricular Outflow Tract Name Value Normal LVOT 2D LVOT Diameter 1.8 cm LVOT Doppler LVOT Peak Gradient 5 mmHg LVOT Mean Gradient 3 mmHg LVOT VTI 26 cm LVOT VTI/AV VTI Ratio 0.8 LVOT Stroke Volume 64 ml LVOT CO 5.0 l/min LVOT CI 2.3 l/min/m2 Pulmonic Valve
[2024-02-19] MEDS: MAGNESIUM CITRATE 300 ML BTL PO ×2 (02:06→06:08)
[2024-02-19 05:13] LABS: Basophils Absolute Auto 0.1 K/mm3 (0.0-0.1); Basophils Percent Auto 0.3 % (0.2-1.2); Eosinophils Absolute Auto 2.8 K/mm3 (0-0.3); Eosinophils Percent Auto 13.4 % (0-4.4); Hematocrit 27.7 % (37.0-47.0); Hemoglobin 8.8 g/dL (12.0-15.0); Immature Granulocyte Absolute 0.25 K/mm3 (0.00-0.031); Immature Granulocyte Percent A 1.2 % (0-0.5); Lymphocytes Absolute Auto 2.14 K/mm3 (0.9-3.2); Lymphocytes Percent Auto 10.3 % (18.3-44.2); Mean Corpuscular HGB Conc 31.8 g/dl (32-36); Mean Corpuscular Volume 94.5 fl (80-100); Mean Platelet Volume 8.7 fl (7.4-10.4); Monocytes Absolute Auto 1.9 K/mm3 (0.1-0.6); Neutrophils Absolute Auto 13.6 K/mm3 (1.3-6.7); Neutrophils Percent Auto 65.8 % (45.5-73.1); Nucleated Red Blood Cells Perc 0.1 % (0.0-0.2); Platelet Count Result 482 k/mm3 (150-375); Red Blood Count 2.93 M/mm3 (4.2-5.4); Red Cell Distribution Width 13.9 % (11.5-14.5); White Blood Count 20.7 K/mm3 (4.5-10.0)
[2024-02-19 05:27] LABS: Anion Gap 11 mmol/L (4-12); Blood Urea Nitrogen 43 mg/dL (7-17); Calcium 8.2 mg/dL (8.4-10.2); Carbon Dioxide 22 mmol/L (22-30); Chloride 99 mmol/L (98-107); Estimated CRCL calculation 13 ml/min; Estimated Glomerular Filt Rate 8; Glucose 191 mg/dL (65-110); Magnesium 2.4 mg/dL (1.6-2.3); Phosphorus 8.9 mg/dL (2.5-4.5); Potassium 4.3 mmol/L (3.4-5.0); Sodium 132 mmol/L (137-145)
[2024-02-19 05:41] LABS: Vancomycin Trough 18.3 ug/mL (10.0-20.0)
[2024-02-19 05:59] LABS: Anisocytosis 1+; Hypochromasia 1+; Platelet Estimate Increased (Adequate); Schistocytes Rare
[2024-02-19 07:49] LABS: Glucose Point of Care 189 mg/dl (65-105)
--- NOTE | 2024-02-19 07:53 | PM.IMPN ---
Progress Note: A&P Assessment and Plan (1) SIRS (systemic inflammatory response syndrome): Code(s): R65.10 - Systemic inflammatory response syndrome (SIRS) of non-infectious origin without acute organ dysfunction Status: Acute Assessment and Plan: Meets SIRS criteria: WBC, blood cultures + - lactic acid: 0.8 - 30 mL/kg = 2862 ml - suspected source: pneumonia vs foot ulcer - blood cultures drawn on 02/15: staph aureus. Redrawn 02/17 pending - Wound culture 02/17/24: few gram + cocci - MRSA nares + - Echo: LVEF 60-65% with grade I diastolic dysfunction. No vegetation appreciated on study. - UA ordered - CXR: Extensive central left lung hazy airspace disease and mild haziness right lung base. Correlate for asymmetric pulmonary edema versus bilateral pneumonia. - Chest/abdomen/pelvis CTA: No pulmonary embolus. Sensitivity is mildly decreased by motion artifact. Worsened diffuse lung disease, consistent with pneumonia superimposed on chronic lung disease. (2) Sickle cell anemia: Code(s): D57.1 - Sickle-cell disease without crisis Status: Acute Assessment and Plan: H/H 6.7/22.3 yesterday. Requiring a blood transfusion. Response was appropriate. H/H stable at this time. - Iron panel: iron 29, TIBC 157, % saturation 18, Ferritin 594 - PO iron 65 mg daily - Sickle cell positive, absolute retic 0.07, % retic 2.95, retic hgb 26.1 - Hemoglobin electrophoresis for evaluation of sickle cell disease vs trait - LDH and reticulocyte counts daily - Folic acid 1mg daily, IV Venofer, NS 75 ml/hr, and IV Dilaudid PRN for pain control - GI consulted due to ongoing anemia with heme-positive stools. Colonoscopy was normal, no colitis, no AVM, nothing to explain anemia. EGD was normal, no esophagitis, no varices, no gastric ulcers, nothing to explain anemia. - Hematology following (3) Bilateral pneumonia: Qualifiers: Lung location: unspecified part of lung Pneumonia type: due to unspecified organism Qualified Code(s): J18.9 - Pneumonia, unspecified organism Code(s): J18.9 - Pneumonia, unspecified organism Status: Acute Assessment and Plan: - CXR: Extensive central left lung hazy airspace disease and mild haziness right lung base. Correlate for asymmetric pulmonary edema versus bilateral pneumonia. - Chest/abdomen/pelvis CTA: No pulmonary embolus. Sensitivity is mildly decreased by motion artifact. Worsened diffuse lung disease, consistent with pneumonia superimposed on chronic lung disease. - Complicating Factors: comorbidities - started on meropenem and vancomycin. Meropenem deescalated to cefepime. Vancomycin continued due to + MRSA nares. - Viral PCR: negative for Flu/COVID/RSV - MRSA nares: positive - 1L NC supplemental O2 requirement (baseline room air) - supportive treatment tyl - trend labs (4) End-stage renal disease on hemodialysis: Code(s): N18.6 - End stage renal disease; Z99.2 - Dependence on renal dialysis Status: Acute Assessment and Plan: Patient dialysis schedule is typically Friday//Friday. - BUN/Cr 43/7.0 today. Will receive dialysis today. - Nephrology following (5) Hypertension: Code(s): I10 - Essential (primary) hypertension Status: Chronic Assessment and Plan: Stable on home medication. Continue home medications. - amlodipine 10 mg daily - carvedilol 12.5 mg BID - lisinopril 20 mg daily - clonidine 0.2 mg daily (6) CHF (congestive heart failure): Qualifiers: Heart failure chronicity: acute on chronic Heart failure type: unspecified Qualified Code(s): I50.9 - Heart failure, unspecified Code(s): I50.9 - Heart failure, unspecified Status: Chronic Assessment and Plan: Echo 02/19/24: LVEF 60-65% with grade I diastolic dysfunction. (7) Chronic heel ulcer: Qualifiers: Laterality: right Non-pressure ulcer stage: unspecified non-pressure ulcer stage Qualified Code(s)
--- NOTE | 2024-02-19 08:45 | PCOTNOTE ---
Attempted to see pt. for occupational therapy evaluation. Pt. declined to participate in OT services at this time, due to lack of sleep. Spoke with nursing who reported that pt. was up late with bowel prep of EGD today, then dialysis treatment afterwards, and to attempt to work with pt. when pt. agreeable. Following.
[2024-02-19 08:58] LABS: Immature Reticulocyte Fraction 33.7 % (3.0-15.9); Reticulocyte Hemoglobin Conten 25.2 pg (28.2-36.6); Reticulocyte Percent 2.65 % (0.7-4.3); Reticulocytes Absolute 0.08 10^6/uL (0.02-0.10)
[2024-02-19 09:10] LABS: Lactate Dehydrogenase 167 U/L (120-246)
[2024-02-19] MEDS: SILVER SULFADIAZINE 1% CR 400 GM JAR (*BKC) 1 APPLIC TOPICAL (09:31)
[2024-02-19] MEDS: COLLAGENASE OINT 30 GM TUBE 1 APPLIC TOPICAL (09:31)
[2024-02-19] MEDS: PANTOPRAZOLE SODIUM IV 40 MG VIAL IV PUSH ×2 (09:31→20:14)
[2024-02-19] MEDS: FOLIC ACID 1 MG TABLET PO (09:31)
[2024-02-19] MEDS: metOLazone 5 MG TABLET 10 MG PO (09:32)
[2024-02-19] MEDS: lisinopriL 20 MG TABLET PO (09:32)
[2024-02-19] MEDS: amLODIPine BESYLATE 5 MG TABLET 10 MG PO (09:32)
[2024-02-19] MEDS: carvediloL 12.5 MG TABLET PO ×2 (09:32→18:57)
[2024-02-19] MEDS: cloNIDine HCL 0.2 MG TABLET PO (09:32)
[2024-02-19] MEDS: FAMOTIDINE 10 MG TABLET PO (09:32)
[2024-02-19] MEDS: IRON SUCROSE COMPLEX 500 MG in SODIUM CHLORIDE 0.9% IV 250 ML 79 MG IVPB (09:38)
--- NOTE | 2024-02-19 09:50 | PDONCCN ---
HPI - Date of Consult Date/Time: 02/19/24 12:56 <Mateo Morrissey - 02/19/24 13:00> 02/19/24 09:50 <Aida Fermin - 02/19/24 09:56> Requesting Physician: Yuli Alvarado MD <Mateo Morrissey - 02/19/24 13:00> Yuli Alvarado MD <Aida Fermin - 02/19/24 09:56> Primary Care Provider: Cherise Patrick, PA <Mateo Morrissey - 02/19/24 13:00> Cherise Patrick, PA <Aida Fermin - 02/19/24 09:56> - Consult Narrative Reason for consult: Sickle Cell <Aida Fermin - 02/19/24 09:56> Narrative: Gay Canales is a 33 year old female <Mateo Morrissey - 02/19/24 13:00> Gay Canales is a 33 year old female with an extensive past medical history of DM, HTN, blindness d/t glaucoma, ESRD who was admitted from [facility] from generalized pain all over. She states she had worsening body pain that got worse. She is reporting that the generalized pain has improved with PO tramadol, but she does have increased pains in her arms that have been persistent for about 4 weeks and only getting worse. She does have two cousins in the family with sickle cell disease and trait, but has never been diagnosed herself. She reports an anemia history as well as ESRD and receives T/Thur/Sat dialysis. She still has urinary incontinence episodes as well. She is taking oral iron, but iron 29 % sat 18 which is low. Ferritin is elevated at 584. B12 485. Cr 7.00, Hgb 8.8, Hct 27.7, Plt 482,000. Sickle cell screening came back positive. CT scans show possible PNA vs chronic lung disease. Blood cultures positive for staph aureus and MRSA +. <Aida Fermin 02/19/24 10:09> Review of Systems - Review of Systems All systems reviewed & are unremarkable except as noted in HPI and bel <Aida Fermin 02/19/24 10:09> - Neurologic Reports hearing normal, Denies abnormal speech, Denies behavioral changes <Aida Fermin - 02/19/24 09:56> [facility] Medical History: Medical History (Last Updated 02/18/24 @ 01:16 by Nadia Coreas DO) Anemia in chronic kidney disease Blind in both eyes Onset Date: ~03/2023 Occurred acutely March 2023 CHF (congestive heart failure) Chronic heel ulcer Chronic heel ulcer on the left foot developed November 2022 with acute decompensation and subsequent above the knee amputation, no unfortunately do developed a right heel ulcer the fall that is been persistent Diabetes mellitus Diabetic nephropathy with proteinuria Nephrotic range Diabetic neuropathy Diastolic heart failure secondary to hypertension EF 70% with grade 2 diastolic dysfunction echocardiogram August 2023 End-stage renal disease on hemodialysis Hemodialysis initiated August 2023 Glaucoma Hyperlipidemia Hypertension Nephrotic syndrome <Mateo Morrissey - 02/19/24 13:00> Medical History (Last Updated 02/18/24 @ 01:16 by Nadia Coreas DO) Anemia in chronic kidney disease Blind in both eyes Onset Date: ~03/2023 Occurred acutely March 2023 CHF (congestive heart failure) Chronic heel ulcer Chronic heel ulcer on the left foot developed November 2022 with acute decompensation and subsequent above the knee amputation, no unfortunately do developed a right heel ulcer the fall that is been persistent Diabetes mellitus Diabetic nephropathy with proteinuria Nephrotic range Diabetic neuropathy Diastolic heart failure secondary to hypertension EF 70% with grade 2 diastolic dysfunction echocardiogram August 2023 End-stage renal disease on hemodialysis Hemodialysis initiated August 2023 Glaucoma Hyperlipidemia Hypertension Nephrotic syndrome <Aida Fermin - 02/19/24 09:56> Surgical History: Surgical History (Last Updated 02/18/24 @ 01:30 by Nadia Coreas DO) History of left below knee amputation Onset Date: ~12/2022 Due to osteomyelitis Status post insertion of dialysis catheter Onset Date: 08/2023 Right subclavian <Mateo Morrissey - 0
[2024-02-19 10:07] LABS: Beta HCG Quantitative < 2.39 mIU/ML
[2024-02-19 10:51] LABS: Glucose Point of Care 176 mg/dl (65-105)
[2024-02-19] MEDS: LACTATED RINGERS 1,000 ML 150 ML IV CONT (10:57)
--- NOTE | 2024-02-19 10:58 | WPDANESEPPF ---
Anes - Initial Pre Proc Eval Procedure: Operation Date: 02/19/24 14:00 Proposed Procedures p Esophagogastroduodenoscopy & Colonoscopy - Dinh Sanchez MD Date/Time: 02/19/24 10:58 Surgeon: Yuli Alvarado MD Pre Op Diagnosis: Hyperkalemia/Pneumonia/Anemia Patient Data Age: 33 Gender: F Height: 1.7 m Weight: 94.3 kg Last Vital Signs Temp 97.0 F L 02/19/24 10:46 Pulse 77 02/19/24 10:46 Resp 18 02/19/24 10:46 BP 122/77 02/19/24 10:46 Pulse Ox 93 02/19/24 10:46 O2 Del Method Room Air 02/19/24 10:46 O2 Flow Rate 1 02/19/24 04:00 Allergies Allergy/AdvReac Type Severity Reaction Status Date / Time No Known Allergies Allergy Verified 02/19/24 10:38 Home Medications Medication Instructions Recorded Confirmed Type amlodipine 10 mg tablet 10 mg PO DAILY 08/04/23 02/16/24 History carvedilol 12.5 mg tablet 12.5 mg PO BID 08/04/23 02/16/24 History insulin lispro 100 unit/mL See Rx Instructions .Route .COMPLEX 08/04/23 02/16/24 History subcutaneous solution nystatin 100,000 unit/gram topical 1 applic topical PRN 08/04/23 02/16/24 History powder potassium chloride 20 mEq 20 meq PO DAILY 08/04/23 02/16/24 History tablet,extended release(part/cryst) ascorbic acid (vitamin C) 500 mg 500 mg PO BID 08/05/23 02/16/24 History tablet ferrous sulfate 325 mg (65 mg 325 mg PO DAILY 08/05/23 02/16/24 History iron) tablet melatonin 5 mg PO HS PRN Prophylaxis 08/05/23 02/16/24 History multivitamin 1 tablet PO DAILY 08/05/23 02/16/24 History ondansetron 4 mg disintegrating 4 mg PO Q8H 08/05/23 02/16/24 History tablet bumetanide 1 mg tablet 2 mg PO BID 30 days #120 tabs 08/23/23 02/16/24 Rx lisinopril 20 mg tablet 20 mg PO QAM 30 days #30 tabs 08/23/23 02/16/24 Rx bisacodyl 10 mg rectal suppository 10 mg RECTAL DAILY PRN Constipation 02/16/24 02/16/24 History cholecalciferol (vitamin D3) 10 10 mcg PO DAILY 02/16/24 02/16/24 History mcg (400 unit) capsule (Vitamin D3) clonidine HCl 0.2 mg tablet 0.2 mg PO DAILY 02/16/24 02/16/24 History cyclobenzaprine 10 mg tablet 10 mg PO Q8H PRN muscle spasm 02/16/24 02/16/24 History famotidine 10 mg chewable tablet 10 mg PO DAILY 02/16/24 02/16/24 History loperamide 2 mg capsule 2 mg PO Q8H PRN Diarrhea 02/16/24 02/16/24 History magnesium citrate (Citroma oral 300 ml PO DAILY PRN Constipation 02/16/24 02/16/24 History solution) metoclopramide HCl 5 mg tablet 5 mg PO BID PRN Nausea And Vomiting 02/16/24 02/16/24 History metolazone 5 mg tablet 10 mg PO DAILY 02/16/24 02/16/24 History metronidazole 500 mg tablet 500 mg DAILY 02/16/24 02/16/24 History naproxen 250 mg tablet 500 mg PO DAILY 02/16/24 02/16/24 History pantoprazole 40 mg tablet,delayed 40 mg PO DAILY 02/16/24 02/16/24 History release silver sulfadiazine 1 % topical 1 applic topical DAILY 02/16/24 02/16/24 History cream (Silvadene) tramadol 50 mg tablet 50 mg PO QID PRN Moderate Pain 02/16/24 02/16/24 History (Scale Score 5-6) Laboratory Tests 02/16/24 02/18/24 02/18/24 21:06 05:34 11:33 WBC RBC Hgb Hct MCV MCH MCHC RDW Plt Count MPV Immature Gran % (Auto) Neut % (Auto) Lymph % (Auto) [place] % (Auto) Eos % (Auto) Baso % (Auto) Lymph # (Auto) [place] # (Auto) Eos # (Auto) Baso # (Auto) Abs Immat Gran (auto) Absolute Neuts (auto) Absolute Nucleated RBC Nucleated RBC % Platelet Estimate Hypochromasia Anisocytosis Schistocytes Absolute Retic Percent Retic Immature Retic Fraction Retic Hgb Content Sickle Cell Screen Positive A (NEGATIVE) Hemoglobin A %
--- NOTE | 2024-02-19 11:11 | SUR.OPER ---
EGD ended 1106 colonoscopy started 1111
[2024-02-19 12:28] LABS: Glucose Point of Care 175 mg/dl (65-105)
[2024-02-19] MEDS: HYDROmorphone HCL INJ (*CRX) 1 MG/ML SYR 0.5 MG IV PUSH ×2 (14:32→20:15)
--- NOTE | 2024-02-19 15:36 | P.PNNP_ITS ---
Progress Note: A&P Assessment and Plan (1) End stage renal disease: Code(s): N18.6 - End stage renal disease Status: Chronic Assessment and Plan: * HD today * continue T/T/S dialysis schedule * follow electrolyte, volume status, and clearance (2) Bacteremia: Code(s): R78.81 - Bacteremia Status: Acute Assessment and Plan: * noted by blood cultures * potential sources include pneumonia, right heel wound and/or HD catheter... * on antibiotics * follow repeat cultures (3) Hyperkalemia: Code(s): E87.5 - Hyperkalemia Status: Acute Assessment and Plan: * resolved * as noted on admission * s/p medical management * further stabilization with dialysis * follow trend of K+ (4) Bilateral pneumonia: Qualifiers: Lung location: unspecified part of lung Pneumonia type: due to unspecified organism Qualified Code(s): J18.9 - Pneumonia, unspecified organism Code(s): J18.9 - Pneumonia, unspecified organism Status: Acute Assessment and Plan: * as noted by admission imaging * culture data noted * on antibiotics (5) Chronic heel ulcer: Qualifiers: Laterality: right Non-pressure ulcer stage: unspecified non-pressure ulcer stage Qualified Code(s): L97.419 - Non-pressure chronic ulcer of right heel and midfoot with unspecified severity Code(s): L97.409 - Non-pressure chronic ulcer of unspecified heel and midfoot with unspecified severity Status: Chronic Assessment and Plan: * wound care following * wound culture noted * on antibiotics (6) Volume overload: Code(s): E87.70 - Fluid overload, unspecified Status: Chronic Assessment and Plan: * chronic issue at baseline * push fluid removal as tolerated with dialysis * continue ongoing attmepts to achieve euvolemia (7) Hypertension: Code(s): I10 - Essential (primary) hypertension Status: Chronic Assessment and Plan: * reasonable control at this time * follow trend of hemodynamics (8) Anemia: Code(s): D64.9 - Anemia, unspecified Status: Chronic Assessment and Plan: * due to ESRD and acute illness * Epogen with HD * follow H/H (9) Diabetes mellitus: Code(s): E11.9 - Type 2 diabetes mellitus without complications Status: Chronic Assessment and Plan: * follow accu-cheks * glycemic control per hospitalists Will continue to follow. Subjective Date/time seen: 02/19/24 15:36 Interval history: Follow-up for end stage renal disease on hemodialysis. Tolerating dialysis treatment at the time of my visit (seen on HD at 3:25PM); tolerated EGD and colonoscopy earlier today with no issues or problems nd with results noted; no apparent distress noted. Exam Narrative: General: Large AA female sitting up bed in NAD Heart: normal S1 and S2; no rub Lungs: decreased breath sounds at bases Abdomen: obese but soft, nontender, nondistended, positive bowel sounds Extremities: no cyanosis or clubbing; s/p left AKA Skin: right heel with dressings noted Objective Data Vital Signs Vital Signs: Vital Signs Temp Pulse Resp BP Pulse Ox O2 Del Method O2 Flow Rate 02/19/24 15:15 72 126/67 02/19/24 14:53 71 128/71 02/19/24 14:45 98.2 F 71 18 124/
--- NOTE | 2024-02-19 15:36 | PM.PNNEP ---
Progress Note: A&P Assessment and Plan (1) End stage renal disease: Code(s): N18.6 - End stage renal disease Status: Chronic Assessment and Plan: HD today continue T/T/S dialysis schedule follow electrolyte, volume status, and clearance (2) Bacteremia: Code(s): R78.81 - Bacteremia Status: Acute Assessment and Plan: noted by blood cultures potential sources include pneumonia, right heel wound and/or HD catheter... on antibiotics follow repeat cultures (3) Hyperkalemia: Code(s): E87.5 - Hyperkalemia Status: Acute Assessment and Plan: resolved as noted on admission s/p medical management further stabilization with dialysis follow trend of K+ (4) Bilateral pneumonia: Qualifiers: Lung location: unspecified part of lung Pneumonia type: due to unspecified organism Qualified Code(s): J18.9 - Pneumonia, unspecified organism Code(s): J18.9 - Pneumonia, unspecified organism Status: Acute Assessment and Plan: as noted by admission imaging culture data noted on antibiotics (5) Chronic heel ulcer: Qualifiers: Laterality: right Non-pressure ulcer stage: unspecified non-pressure ulcer stage Qualified Code(s): L97.419 - Non-pressure chronic ulcer of right heel and midfoot with unspecified severity Code(s): L97.409 - Non-pressure chronic ulcer of unspecified heel and midfoot with unspecified severity Status: Chronic Assessment and Plan: wound care following wound culture noted on antibiotics (6) Volume overload: Code(s): E87.70 - Fluid overload, unspecified Status: Chronic Assessment and Plan: chronic issue at baseline push fluid removal as tolerated with dialysis continue ongoing attmepts to achieve euvolemia (7) Hypertension: Code(s): I10 - Essential (primary) hypertension Status: Chronic Assessment and Plan: reasonable control at this time follow trend of hemodynamics (8) Anemia: Code(s): D64.9 - Anemia, unspecified Status: Chronic Assessment and Plan: due to ESRD and acute illness Epogen with HD follow H/H (9) Diabetes mellitus: Code(s): E11.9 - Type 2 diabetes mellitus without complications Status: Chronic Assessment and Plan: follow accu-cheks glycemic control per hospitalists Will continue to follow. Subjective Date/time seen: 02/19/24 15:36 Interval history: Follow-up for end stage renal disease on hemodialysis. Tolerating dialysis treatment at the time of my visit (seen on HD at 3:25PM); tolerated EGD and colonoscopy earlier today with no issues or problems nd with results noted; no apparent distress noted. Exam Narrative: General: Large AA female sitting up bed in NAD Heart: normal S1 and S2; no rub Lungs: decreased breath sounds at bases Abdomen: obese but soft, nontender, nondistended, positive bowel sounds Extremities: no cyanosis or clubbing; s/p left AKA Skin: right heel with dressings noted Objective Data Vital Signs Vital Signs: Vital Signs Temp Pulse Resp BP Pulse Ox O2 Del Method O2 Flow Rate 02/19/24 15:15 72 126/67 02/19/24 14:53 71 128/71 02/19/24 14:45 98.2 F 71 18 124/70 02/19/24 14:38 Room Air 02/19/24 14:00 70 02/19/24 12:00 72 02/19/24 12:00 98.3 F 72 16 109/63 92 02/19/24 12:00 Room Air 02/19/24 10:00 74 02/19/24 08:00 77 02/19/24 11:43 72 23 H 109/67 96 Room Air 02/19/24 11:33 72 22 H 105/66 99 Room Air 02/19/24 11:23 71 20 100/61 100 Room Air 02/19/24 08:00 Room Air 02/19/24 10:46 97.0 F L 77 18 122/77 93 Room Air 02/19/24 08:52 91 Room Air 02/19/24 08:00 98.3 F 81 20 117/76 99 02/19/24 06:00 76 02/19/24 04:00 97.6 F 76 18 116/68 93 02/19/24 04:00 98 Nasal C
[2024-02-19] MEDS: EPOETIN ALFA-EPBX 10,000 UNITS/ML VIAL 10000 UNITS IV PUSH (16:09)
[2024-02-19 17:45] LABS: Glucose Point of Care 102 mg/dl (65-105)
[2024-02-19] MEDS: ASCORBIC ACID 500 MG TABLET PO (18:56)
[2024-02-19] MEDS: VANCOMYCIN 750 MG/NS 250 ML 750 MG/250 ML BAG 250 MG IVPB (18:56)
[2024-02-19] MEDS: FERROUS SULFATE 325 MG TABLET DR PO ×2 (18:57)
[2024-02-19] MEDS: CEFEPIME 1 GM/NS 50 ML 1 GM/50 ML BAG IVPB (18:58)
[2024-02-19 20:05] LABS: Glucose Point of Care 127 mg/dl (65-105)
[2024-02-19] MEDS: HEPARIN SODIUM 5,000 UNITS/ML VIAL 5000 UNITS SUB-Q (20:15)
--- NOTE | 2024-02-19 21:52 | PC.NURSE ---
This patient, Gay Canales, was transferred to [[id number] ] on 02/19/24 at 2152. Personal belongings sent with patient. Report given to [Lorraine RN ]. Appropriate documentation sent with patient. Sister, Ana made aware of patient's transfer and verbalized understanding.
[2024-02-20] VITALS (11 sets, daily range): BP systolic 122–128; BP diastolic 69–72; PULSE 70–89; RESP 14–20; TEMP 36.4–37.1; O2SAT 98–99
[2024-02-20] MEDS: HYDROmorphone HCL INJ (*CRX) 1 MG/ML SYR 0.5 MG IV PUSH ×5 (00:39→21:01)
[2024-02-20 05:22] LABS: Basophils Absolute Auto 0.1 K/mm3 (0.0-0.1); Basophils Percent Auto 0.5 % (0.2-1.2); Eosinophils Percent Auto 11.2 % (0-4.4); Hematocrit 31.5 % (37.0-47.0); Hemoglobin 9.6 g/dL (12.0-15.0); Immature Granulocyte Absolute 0.34 K/mm3 (0.00-0.031); Immature Granulocyte Percent A 1.9 % (0-0.5); Lymphocytes Absolute Auto 1.98 K/mm3 (0.9-3.2); Lymphocytes Percent Auto 10.8 % (18.3-44.2); Mean Corpuscular HGB Conc 30.5 g/dl (32-36); Mean Corpuscular Hemoglobin 29.4 pg (26-34); Mean Corpuscular Volume 96.3 fl (80-100); Mean Platelet Volume 8.8 fl (7.4-10.4); Monocytes Absolute Auto 1.8 K/mm3 (0.1-0.6); Monocytes Percent Auto 9.7 % (2.6-8.5); Neutrophils Absolute Auto 12.1 K/mm3 (1.3-6.7); Neutrophils Percent Auto 65.9 % (45.5-73.1); Nucleated Red Blood Cells Perc 0.8 % (0.0-0.2); Platelet Count Result 524 k/mm3 (150-375); Red Blood Count 3.27 M/mm3 (4.2-5.4); Red Cell Distribution Width 13.8 % (11.5-14.5); White Blood Count 18.3 K/mm3 (4.5-10.0)
[2024-02-20 05:30] LABS: Immature Reticulocyte Fraction 36.9 % (3.0-15.9); Reticulocyte Hemoglobin Conten 25.5 pg (28.2-36.6); Reticulocyte Percent 2.66 % (0.7-4.3); Reticulocytes Absolute 0.09 10^6/uL (0.02-0.10)
[2024-02-20 05:37] LABS: Albumin Level 3.1 g/dL (3.5-5.1); Anion Gap 8 mmol/L (4-12); Blood Urea Nitrogen 21 mg/dL (7-17); Calcium 8.1 mg/dL (8.4-10.2); Carbon Dioxide 26 mmol/L (22-30); Chloride 101 mmol/L (98-107); Estimated CRCL calculation 20 ml/min; Estimated Glomerular Filt Rate 14; Glucose 190 mg/dL (65-110); Magnesium 2.4 mg/dL (1.6-2.3); Potassium 3.6 mmol/L (3.4-5.0); Sodium 135 mmol/L (137-145)
[2024-02-20 05:56] LABS: Lactate Dehydrogenase 187 U/L (120-246)
--- NOTE | 2024-02-20 07:58 | WPDANESPN ---
Anes - Prog Note Post-Op Date/Time: 02/20/24 07:58 Cardiovascular status: normal Respiratory status: normal Airway patency: baseline Mental status: baseline Post-Op hydration status: normal Vital Signs: Last Vital Signs Temp 37.1 C 02/20/24 03:48 Pulse 84 02/20/24 04:00 Resp 18 02/20/24 03:48 BP 128/72 02/20/24 03:48 Pulse Ox 99 02/20/24 03:48 O2 Del Method Room Air 02/19/24 20:00 O2 Flow Rate 1 02/19/24 04:00 Pain Score (VAS): 12/13 I/O: Intake & Output 02/19/24 02/19/24 02/20/24 15:59 23:59 07:59 Intake Total 0 50 Output Total 3000 Balance 0 -2950 Laboratory Tests 02/20/24 04:26 02/20/24 04:26 02/19/24 02/19/24 02/19/24 05:02 10:48 12:12 WBC RBC Hgb Hct MCV MCH MCHC RDW Plt Count MPV Immature Gran % (Auto) Neut % (Auto) Lymph % (Auto) Josephine % (Auto) Eos % (Auto) Baso % (Auto) Lymph # (Auto) Josephine # (Auto) Eos # (Auto) Baso # (Auto) Abs Immat Gran (auto) Absolute Neuts (auto) Absolute Nucleated RBC Nucleated RBC % Absolute Retic 0.08 Percent Retic 2.65 Immature Retic Fraction 33.7 H Retic Hgb Content 25.2 L Hemoglobin A % Pending Hemoglobin A2 Quant Pending Hemoglobin C % Pending Hemoglobin E % Pending Hemoglobin F Percent Pending Hemoglobin S % Pending Hemoglobinopathy Red Blood Count Pending Hemoglobinopathy Hct Pending Hemoglobinopathy Hgb Pending Hemoglobinopathy MCV Pending Hemoglobinopathy MCH Pending Hemoglobinopathy RDW Pending Hemoglobinopathy Interp Pending Hemoglobin Other Pending Hemoglobin Other 2 Pending Sodium Potassium Chloride Carbon Dioxide Anion Gap BUN Creatinine Estim Creat Clear Calc Estimated GFR Glucose POC Capillary Glucose 176 H 175 H Calcium Phosphorus Magnesium Lactate Dehydrogenase 167 Albumin Beta HCG, Quant < 2.39 02/19/24 02/19/24 02/20/24 17:41 19:51 04:26 WBC 18.3 H RBC 3.27 L Hgb 9.6 L Hct 31.5 L MCV 96.3 MCH 29.4 MCHC 30.5 L RDW 13.8 Plt Count 524 H MPV 8.8 Immature Gran % (Auto) 1.9 H Neut % (Auto) 65.9 Lymph % (Auto) 10.8 L Josephine % (Auto) 9.7 H Eos % (Auto) 11.2 H Baso % (Auto) 0.5 Lymph # (Auto) 1.98 Josephine # (Auto) 1.8 H Eos # (Auto) 2.0 H Baso # (Auto) 0.1 Abs Immat Gran (auto) 0.34 H Absolute Neuts (auto) 12.1 H Absolute Nucleated RBC 0.150 H Nucleated RBC % 0.8 H Absolute Retic Percent Retic Immature Retic Fraction Retic Hgb Content Hemoglobin A % Hemoglobin A2 Quant Hemoglobin C % Hemoglobin E % Hemoglobin F Percent Hemoglobin S % Hemoglobinopathy Red Blood Count Hemoglobinopathy Hct Hemoglobinopathy Hgb Hemoglobinopathy MCV Hemoglobinopathy MCH Hemoglobinopathy RDW Hemoglobinopathy Interp Hemoglobin Other Hemoglobin Other 2 Sodium 135 L Potassium 3.6 Chloride 101 Carbon Dioxide 26 Anion Gap 8 BUN 21 H D Creatinine 4.40 H Estim Creat Clear Calc 20 Estimated GFR 14 L Glucose 190 H POC Capillary Glucose 102 127 H Calcium 8.1 L Phosphorus 5.0 H Magnesium 2.4 H Lactate Dehydrogenase 187 Albumin 3.1 L Beta HCG, Quant 02/20/24 05:00 WBC RBC Hgb Hct MCV MCH MCHC RDW Plt Count MPV Immature Gran % (Auto) Neut % (Auto) Lymph % (Auto) Josephine % (Auto) Eos % (Auto) Baso % (Auto) Lymph # (Auto) Josephine # (Auto) Eos # (Auto) Baso # (Auto) Abs Immat Gran (auto) Absolute Neuts (auto) Absolute Nucleated RBC Nucleated RBC % Absolute Retic 0.09 Percent Retic 2.66 Immature Retic Fraction 36.9 H Retic Hgb Content 25.5 L Hemoglobin A % Hemoglobin A2 Quant Hemoglobin C % Hemoglobin E % Hemoglobin F Percent Hemoglobin S % Hemoglobinopathy Red Blood Count Hemoglobinopathy
[2024-02-20 08:04] LABS: Glucose Point of Care 165 mg/dl (65-105)
--- NOTE | 2024-02-20 08:46 | PM.IMPN ---
Progress Note: A&P Assessment and Plan (1) SIRS (systemic inflammatory response syndrome): Code(s): R65.10 - Systemic inflammatory response syndrome (SIRS) of non-infectious origin without acute organ dysfunction Status: Acute Assessment and Plan: Meets SIRS criteria: WBC, blood cultures + - lactic acid: 0.8 - 30 mL/kg = 2862 ml - suspected source: pneumonia vs foot ulcer - blood cultures drawn on 02/15: staph aureus. Redrawn 02/17 NGTD - Wound culture 02/17/24: few gram + cocci - MRSA nares + - Echo: LVEF 60-65% with grade I diastolic dysfunction. No vegetation appreciated on study. - UA ordered - CXR: Extensive central left lung hazy airspace disease and mild haziness right lung base. Correlate for asymmetric pulmonary edema versus bilateral pneumonia. - Chest/abdomen/pelvis CTA: No pulmonary embolus. Sensitivity is mildly decreased by motion artifact. Worsened diffuse lung disease, consistent with pneumonia superimposed on chronic lung disease. (2) Sickle cell anemia: Code(s): D57.1 - Sickle-cell disease without crisis Status: Acute Assessment and Plan: H/H 6.7/22.3 yesterday. Requiring a blood transfusion. Response was appropriate. H/H stable at this time. - Iron panel: iron 29, TIBC 157, % saturation 18, Ferritin 594 - PO iron 65 mg daily - Sickle cell positive, absolute retic 0.07, % retic 2.95, retic hgb 26.1 - Hemoglobin electrophoresis for evaluation of sickle cell disease vs trait - LDH and reticulocyte counts daily - Folic acid 1mg daily, IV Venofer, NS 75 ml/hr, and IV Dilaudid PRN for pain control - GI consulted due to ongoing anemia with heme-positive stools. Colonoscopy was normal, no colitis, no AVM, nothing to explain anemia. EGD was normal, no esophagitis, no varices, no gastric ulcers, nothing to explain anemia. - Hematology following (3) Bilateral pneumonia: Qualifiers: Lung location: unspecified part of lung Pneumonia type: due to unspecified organism Qualified Code(s): J18.9 - Pneumonia, unspecified organism Code(s): J18.9 - Pneumonia, unspecified organism Status: Acute Assessment and Plan: - CXR: Extensive central left lung hazy airspace disease and mild haziness right lung base. Correlate for asymmetric pulmonary edema versus bilateral pneumonia. - Chest/abdomen/pelvis CTA: No pulmonary embolus. Sensitivity is mildly decreased by motion artifact. Worsened diffuse lung disease, consistent with pneumonia superimposed on chronic lung disease. - Complicating Factors: comorbidities - started on meropenem and vancomycin. Meropenem deescalated to cefepime. Further deescalated to Augmentin. Vancomycin continued due to + MRSA nares. - Viral PCR: negative for Flu/COVID/RSV - MRSA nares: positive - No longer requiring O2 supplementation - supportive treatment tyl - trend labs (4) End-stage renal disease on hemodialysis: Code(s): N18.6 - End stage renal disease; Z99.2 - Dependence on renal dialysis Status: Acute Assessment and Plan: Patient dialysis schedule is typically Friday//Friday. - BUN/Cr 43/7.0 today. Will receive dialysis on her normal schedule. - Nephrology following - MRSA bacteremia on prior blood cultures. New blood cultures are showing NGTD. Will follow up with Dr. Millan tomorrow to discuss possible dialysis port exchange after blood cultures result. (5) Hypertension: Code(s): I10 - Essential (primary) hypertension Status: Chronic Assessment and Plan: Stable on home medication. Continue home medications. - amlodipine 10 mg daily - carvedilol 12.5 mg BID - lisinopril 20 mg daily - clonidine 0.2 mg daily (6) CHF (congestive heart failure): Qualifiers: Heart failure chronicity: acute on chronic Heart failure type: unspecified Qualified Code(s): I50.9 - Heart failure, unspecified Code(s): I50.9 - Heart failure, unspecified Status: Chronic Assessment an
[2024-02-20] MEDS: cloNIDine HCL 0.2 MG TABLET PO (08:52)
[2024-02-20] MEDS: FERROUS SULFATE 325 MG TABLET DR PO ×2 (08:52→17:27)
[2024-02-20] MEDS: amLODIPine BESYLATE 5 MG TABLET 10 MG PO (08:52)
[2024-02-20] MEDS: metOLazone 5 MG TABLET 10 MG PO (08:52)
[2024-02-20] MEDS: CHOLECALCIFEROL 400 UNITS TABLET (VIT D) PO (08:52)
[2024-02-20] MEDS: lisinopriL 20 MG TABLET PO (08:52)
[2024-02-20] MEDS: MULTIVITAMINS THERAPEUTIC TAB (*BKC) 1 TABLET PO (08:52)
[2024-02-20] MEDS: ASCORBIC ACID 500 MG TABLET PO ×2 (08:52→17:27)
[2024-02-20] MEDS: PANTOPRAZOLE SODIUM IV 40 MG VIAL IV PUSH ×2 (08:53→21:01)
[2024-02-20] MEDS: HEPARIN SODIUM 5,000 UNITS/ML VIAL 5000 UNITS SUB-Q ×2 (08:53→21:01)
[2024-02-20] MEDS: carvediloL 12.5 MG TABLET PO ×2 (08:53→17:27)
[2024-02-20] MEDS: FOLIC ACID 1 MG TABLET PO (08:53)
[2024-02-20] MEDS: SILVER SULFADIAZINE 1% CR 400 GM JAR (*BKC) 1 APPLIC TOPICAL (08:55)
[2024-02-20] MEDS: COLLAGENASE OINT 30 GM TUBE 1 APPLIC TOPICAL (08:56)
[2024-02-20] MEDS: FAMOTIDINE 10 MG TABLET PO (09:21)
--- NOTE | 2024-02-20 10:02 | P.PNNP_ITS ---
Progress Note: A&P Assessment and Plan (1) End stage renal disease: Code(s): N18.6 - End stage renal disease Status: Chronic Assessment and Plan: * HD tomorrow * continue T/T/S dialysis schedule * follow electrolyte, volume status, and clearance (2) Bacteremia: Code(s): R78.81 - Bacteremia Status: Acute Assessment and Plan: * noted by blood cultures * potential sources include pneumonia, right heel wound and/or HD catheter * suspicion falls more on right heel wound * on antibiotics * follow repeat cultures * given MRSA on cultures, may need to consider HD catheter exchange (depending on repeat cultures) (3) Hyperkalemia: Code(s): E87.5 - Hyperkalemia Status: Acute Assessment and Plan: * resolved * as noted on admission * s/p medical management * further stabilization with dialysis * follow trend of K+ (4) Bilateral pneumonia: Qualifiers: Lung location: unspecified part of lung Pneumonia type: due to unspecified organism Qualified Code(s): J18.9 - Pneumonia, unspecified organism Code(s): J18.9 - Pneumonia, unspecified organism Status: Acute Assessment and Plan: * as noted by admission imaging * culture data noted * on antibiotics (5) Chronic heel ulcer: Qualifiers: Laterality: right Non-pressure ulcer stage: unspecified non-pressure ulcer stage Qualified Code(s): L97.419 - Non-pressure chronic ulcer of right heel and midfoot with unspecified severity Code(s): L97.409 - Non-pressure chronic ulcer of unspecified heel and midfoot with unspecified severity Status: Chronic Assessment and Plan: * wound care following * wound culture noted * on antibiotics (6) Volume overload: Code(s): E87.70 - Fluid overload, unspecified Status: Chronic Assessment and Plan: * chronic issue at baseline * push fluid removal as tolerated with dialysis * continue ongoing attmepts to achieve euvolemia (7) Hypertension: Code(s): I10 - Essential (primary) hypertension Status: Chronic Assessment and Plan: * reasonable control at this time * follow trend of hemodynamics (8) Anemia: Code(s): D64.9 - Anemia, unspecified Status: Chronic Assessment and Plan: * due to ESRD and acute illness * Epogen with HD * follow H/H (9) Diabetes mellitus: Code(s): E11.9 - Type 2 diabetes mellitus without complications Status: Chronic Assessment and Plan: * follow accu-cheks * glycemic control per hospitalists Will continue to follow. Subjective Date/time seen: 02/20/24 10:02 Interval history: Follow-up for end stage renal disease on hemodialysis. Tolerated dialysis treatment yesterday without any issues or problems; no apparent distress voiced at the time of my visit; tolerating antibiotic therapy currently; no apparent issues or events overnight or earlier this morning; breathing/respiratory status appears stable if not improved. Exam Narrative: General: Large female in NAD Heart: normal S1 and S2; no rub Lungs: decreased breath sounds at bases Abdomen: obese but soft, nontender, nondistended, positive bowel sounds Extremities: no cyanosis or clubbing; s/p left AKA Skin: right heel with dressings in place Objective Data Vital Signs Vital Signs:
--- NOTE | 2024-02-20 10:02 | PM.PNNEP ---
Progress Note: A&P Assessment and Plan (1) End stage renal disease: Code(s): N18.6 - End stage renal disease Status: Chronic Assessment and Plan: HD tomorrow continue T/T/S dialysis schedule follow electrolyte, volume status, and clearance (2) Bacteremia: Code(s): R78.81 - Bacteremia Status: Acute Assessment and Plan: noted by blood cultures potential sources include pneumonia, right heel wound and/or HD catheter suspicion falls more on right heel wound on antibiotics follow repeat cultures given MRSA on cultures, may need to consider HD catheter exchange (depending on repeat cultures) (3) Hyperkalemia: Code(s): E87.5 - Hyperkalemia Status: Acute Assessment and Plan: resolved as noted on admission s/p medical management further stabilization with dialysis follow trend of K+ (4) Bilateral pneumonia: Qualifiers: Lung location: unspecified part of lung Pneumonia type: due to unspecified organism Qualified Code(s): J18.9 - Pneumonia, unspecified organism Code(s): J18.9 - Pneumonia, unspecified organism Status: Acute Assessment and Plan: as noted by admission imaging culture data noted on antibiotics (5) Chronic heel ulcer: Qualifiers: Laterality: right Non-pressure ulcer stage: unspecified non-pressure ulcer stage Qualified Code(s): L97.419 - Non-pressure chronic ulcer of right heel and midfoot with unspecified severity Code(s): L97.409 - Non-pressure chronic ulcer of unspecified heel and midfoot with unspecified severity Status: Chronic Assessment and Plan: wound care following wound culture noted on antibiotics (6) Volume overload: Code(s): E87.70 - Fluid overload, unspecified Status: Chronic Assessment and Plan: chronic issue at baseline push fluid removal as tolerated with dialysis continue ongoing attmepts to achieve euvolemia (7) Hypertension: Code(s): I10 - Essential (primary) hypertension Status: Chronic Assessment and Plan: reasonable control at this time follow trend of hemodynamics (8) Anemia: Code(s): D64.9 - Anemia, unspecified Status: Chronic Assessment and Plan: due to ESRD and acute illness Epogen with HD follow H/H (9) Diabetes mellitus: Code(s): E11.9 - Type 2 diabetes mellitus without complications Status: Chronic Assessment and Plan: follow accu-cheks glycemic control per hospitalists Will continue to follow. Subjective Date/time seen: 02/20/24 10:02 Interval history: Follow-up for end stage renal disease on hemodialysis. Tolerated dialysis treatment yesterday without any issues or problems; no apparent distress voiced at the time of my visit; tolerating antibiotic therapy currently; no apparent issues or events overnight or earlier this morning; breathing/respiratory status appears stable if not improved. Exam Narrative: General: Large female in NAD Heart: normal S1 and S2; no rub Lungs: decreased breath sounds at bases Abdomen: obese but soft, nontender, nondistended, positive bowel sounds Extremities: no cyanosis or clubbing; s/p left AKA Skin: right heel with dressings in place Objective Data Vital Signs Vital Signs: Vital Signs Temp Pulse Resp BP Pulse Ox O2 Del Method 02/20/24 10:00 97.6 F 70 14 122/70 98 02/20/24 08:00 82 02/20/24 08:20 Room Air 02/20/24 08:53 84 02/20/24 04:00 84 02/20/24 03:48 98.8 F 85 18 128/72 99 02/20/24 00:00 89 02/19/24 22:27 99.3 F 91 18 146/71 H 98 02/19/24 22:11 91 02/19/24 20:00 Room Air 02/19/24 20:00 90 02/19/24 20:43 97.1 F L 90 18 119/60 97 02/19/24 18:38 98.8 F 81 18 125/70 02/19/24 18:28 83 135/74 02/19/24 18:15 79 127/67 02/19/24 18:00 81
[2024-02-20] MEDS: INSULIN ASPART (*BKC) 100 UNITS/ML SUB-Q (12:01)
[2024-02-20 12:14] LABS: Glucose Point of Care 285 mg/dl (65-105)
[2024-02-20 17:05] LABS: Glucose Point of Care 142 mg/dl (65-105)
[2024-02-20 18:34] LABS: Hematocrit 27.4 % (35.0-45.0); Hemoglobin 8.6 g/dL (11.7-15.5); MCH 29.5 pg (27.0-33.0); MCV 93.8 fL (80.0-100.0); RDW 12.2 % (11.0-15.0); Red Blood Cell Count 2.92 Million/uL (3.80-5.10)
[2024-02-20 20:55] LABS: Glucose Point of Care 212 mg/dl (65-105)
[2024-02-20] MEDS: AMOXICILLIN/CLAVULANATE K 500-125 MG TAB 1 TABLET PO (21:01)
[2024-02-21] VITALS (29 sets, daily range): BP systolic 125–159; BP diastolic 68–88; PULSE 70–86; RESP 16–20; TEMP 36.6–37; O2SAT 97–100
[2024-02-21] MEDS: HYDROmorphone HCL INJ (*CRX) 1 MG/ML SYR 0.5 MG IV PUSH ×4 (00:45→20:52)
--- NOTE | 2024-02-21 07:02 | PM.IMPN ---
Progress Note: A&P Assessment and Plan (1) SIRS (systemic inflammatory response syndrome): Code(s): R65.10 - Systemic inflammatory response syndrome (SIRS) of non-infectious origin without acute organ dysfunction Status: Acute Assessment and Plan: Meets SIRS criteria: WBC, blood cultures + - lactic acid: 0.8 - 30 mL/kg = 2862 ml - suspected source: pneumonia vs foot ulcer - blood cultures drawn on 02/15: staph aureus. Redrawn 02/17 NGTD - Wound culture 02/17/24: MRSA - MRSA nares + - Echo: LVEF 60-65% with grade I diastolic dysfunction. No vegetation appreciated on study. - UA ordered - CXR: Extensive central left lung hazy airspace disease and mild haziness right lung base. Correlate for asymmetric pulmonary edema versus bilateral pneumonia. - Chest/abdomen/pelvis CTA: No pulmonary embolus. Sensitivity is mildly decreased by motion artifact. Worsened diffuse lung disease, consistent with pneumonia superimposed on chronic lung disease. (2) Sickle cell anemia: Code(s): D57.1 - Sickle-cell disease without crisis Status: Acute Assessment and Plan: H/H 6.7/22.3 yesterday. Requiring a blood transfusion. Response was appropriate. H/H stable at this time. - Iron panel: iron 29, TIBC 157, % saturation 18, Ferritin 594 - PO iron 65 mg daily - Sickle cell positive, absolute retic 0.07, % retic 2.95, retic hgb 26.1 - Hemoglobin electrophoresis for evaluation of sickle cell disease vs trait - LDH and reticulocyte counts daily - Folic acid 1mg daily, IV Venofer, NS 75 ml/hr, and IV Dilaudid PRN for pain control - GI consulted due to ongoing anemia with heme-positive stools. Colonoscopy was normal, no colitis, no AVM, nothing to explain anemia. EGD was normal, no esophagitis, no varices, no gastric ulcers, nothing to explain anemia. - Hematology following (3) Bilateral pneumonia: Qualifiers: Lung location: unspecified part of lung Pneumonia type: due to unspecified organism Qualified Code(s): J18.9 - Pneumonia, unspecified organism Code(s): J18.9 - Pneumonia, unspecified organism Status: Acute Assessment and Plan: - CXR: Extensive central left lung hazy airspace disease and mild haziness right lung base. Correlate for asymmetric pulmonary edema versus bilateral pneumonia. - Chest/abdomen/pelvis CTA: No pulmonary embolus. Sensitivity is mildly decreased by motion artifact. Worsened diffuse lung disease, consistent with pneumonia superimposed on chronic lung disease. - Complicating Factors: comorbidities - started on meropenem and vancomycin. Meropenem deescalated to cefepime. Further deescalated to Augmentin. Vancomycin continued due to + MRSA nares. - Viral PCR: negative for Flu/COVID/RSV - MRSA nares: positive - No longer requiring O2 supplementation - supportive treatment tyl - trend labs (4) End-stage renal disease on hemodialysis: Code(s): N18.6 - End stage renal disease; Z99.2 - Dependence on renal dialysis Status: Acute Assessment and Plan: Patient dialysis schedule is typically Friday//Friday. - BUN/Cr 29/6.0 today. Will receive dialysis on her normal schedule. - Nephrology following - MRSA bacteremia on prior blood cultures. New blood cultures are showing NGTD. Spoke with Dr. Quick about possible dialysis port exchange. Due to new blood cultures showing NGTD the exchange is not needed at this time. (5) Hypertension: Code(s): I10 - Essential (primary) hypertension Status: Chronic Assessment and Plan: Stable on home medication. Continue home medications. - amlodipine 10 mg daily - carvedilol 12.5 mg BID - lisinopril 20 mg daily - clonidine 0.2 mg daily (6) CHF (congestive heart failure): Qualifiers: Heart failure chronicity: acute on chronic Heart failure type: unspecified Qualified Code(s): I50.9 - Heart failure, unspecified Code(s): I50.9 - Heart failure, unspecified Status: Chronic
[2024-02-21 07:54] LABS: Basophils Absolute Auto 0.1 K/mm3 (0.0-0.1); Basophils Percent Auto 0.5 % (0.2-1.2); Eosinophils Absolute Auto 2.2 K/mm3 (0-0.3); Eosinophils Percent Auto 12.2 % (0-4.4); Hematocrit 29.7 % (37.0-47.0); Hemoglobin 9.3 g/dL (12.0-15.0); Immature Granulocyte Absolute 0.41 K/mm3 (0.00-0.031); Immature Granulocyte Percent A 2.3 % (0-0.5); Immature Reticulocyte Fraction 36.6 % (3.0-15.9); Lymphocytes Percent Auto 14.1 % (18.3-44.2); Mean Corpuscular HGB Conc 31.3 g/dl (32-36); Mean Corpuscular Volume 95.8 fl (80-100); Mean Platelet Volume 8.7 fl (7.4-10.4); Monocytes Absolute Auto 1.8 K/mm3 (0.1-0.6); Monocytes Percent Auto 10.1 % (2.6-8.5); Neutrophils Absolute Auto 10.8 K/mm3 (1.3-6.7); Neutrophils Percent Auto 60.8 % (45.5-73.1); Nucleated Red Blood Cells Perc 0.7 % (0.0-0.2); Platelet Count Result 478 k/mm3 (150-375); Red Cell Distribution Width 13.5 % (11.5-14.5); Reticulocyte Hemoglobin Conten 30.9 pg (28.2-36.6); Reticulocyte Percent 2.96 % (0.7-4.3); Reticulocytes Absolute 0.09 10^6/uL (0.02-0.10); White Blood Count 17.8 K/mm3 (4.5-10.0)
[2024-02-21 08:00] LABS: Anion Gap 9 mmol/L (4-12); Blood Urea Nitrogen 29 mg/dL (7-17); Calcium 8.4 mg/dL (8.4-10.2); Carbon Dioxide 25 mmol/L (22-30); Chloride 100 mmol/L (98-107); Estimated CRCL calculation 15 ml/min; Estimated Glomerular Filt Rate 10; Glucose 203 mg/dL (65-110); Lactate Dehydrogenase 161 U/L (120-246); Magnesium 2.5 mg/dL (1.6-2.3); Phosphorus 6.1 mg/dL (2.5-4.5); Potassium 4.1 mmol/L (3.4-5.0); Sodium 134 mmol/L (137-145)
[2024-02-21 08:04] LABS: Glucose Point of Care 190 mg/dl (65-105)
[2024-02-21 08:37] LABS: Vancomycin Random 10.9 ug/mL (10-20)
--- NOTE | 2024-02-21 09:20 | PC.NURSE ---
pt taken down to CT
--- NOTE | 2024-02-21 09:30 | PC.NURSE ---
pt returned from MRI
[2024-02-21] MEDS: MULTIVITAMINS THERAPEUTIC TAB (*BKC) 1 TABLET PO (10:52)
[2024-02-21] MEDS: FAMOTIDINE 10 MG TABLET PO (10:52)
[2024-02-21] MEDS: cloNIDine HCL 0.2 MG TABLET PO (10:52)
[2024-02-21] MEDS: AMOXICILLIN/CLAVULANATE K 500-125 MG TAB 1 TABLET PO ×2 (10:52→20:51)
[2024-02-21] MEDS: CHOLECALCIFEROL 400 UNITS TABLET (VIT D) PO (10:52)
[2024-02-21] MEDS: carvediloL 12.5 MG TABLET PO ×2 (10:52→18:41)
[2024-02-21] MEDS: lisinopriL 20 MG TABLET PO (10:52)
[2024-02-21] MEDS: FERROUS SULFATE 325 MG TABLET DR PO ×2 (10:53→18:40)
[2024-02-21] MEDS: PANTOPRAZOLE SODIUM IV 40 MG VIAL IV PUSH ×2 (10:53→20:53)
[2024-02-21] MEDS: amLODIPine BESYLATE 5 MG TABLET 10 MG PO (10:53)
[2024-02-21] MEDS: FOLIC ACID 1 MG TABLET PO (10:53)
[2024-02-21] MEDS: metOLazone 5 MG TABLET 10 MG PO (10:53)
[2024-02-21] MEDS: ASCORBIC ACID 500 MG TABLET PO ×2 (10:53→18:40)
[2024-02-21] MEDS: HEPARIN SODIUM 5,000 UNITS/ML VIAL 5000 UNITS SUB-Q ×2 (10:53→20:51)
--- NOTE | 2024-02-21 12:00 | P.PNNP_ITS ---
Progress Note: A&P Assessment and Plan (1) End stage renal disease: Code(s): N18.6 - End stage renal disease Status: Chronic Assessment and Plan: * HD should be started within an hour or 2. * continue T/T/S dialysis schedule * Potassium and BUN are okay. CO2 is normal. * Volume status looks okay. (2) Bacteremia: Code(s): R78.81 - Bacteremia Status: Acute Assessment and Plan: * noted by blood cultures * potential sources include pneumonia, right heel wound and/or HD catheter * Catheter exit site looks okay. * Most likely from the heel wound * On vancomycin * Blood cultures done on the are negative to date. * The catheter exit site looks okay. the patient is not toxic looking now. White cell count is down. She is afebrile. Repeat cultures are negative. I can hold off on removing the catheter for now. (3) Hyperkalemia: Code(s): E87.5 - Hyperkalemia Status: Acute Assessment and Plan: * resolved (4) Bilateral pneumonia: Qualifiers: Lung location: unspecified part of lung Pneumonia type: due to unspecified organism Qualified Code(s): J18.9 - Pneumonia, unspecified organism Code(s): J18.9 - Pneumonia, unspecified organism Status: Acute Assessment and Plan: * as noted by admission imaging * culture data noted * on vancomycin (5) Chronic heel ulcer: Qualifiers: Laterality: right Non-pressure ulcer stage: unspecified non-pressure ulcer stage Qualified Code(s): L97.419 - Non-pressure chronic ulcer of right heel and midfoot with unspecified severity Code(s): L97.409 - Non-pressure chronic ulcer of unspecified heel and midfoot with unspecified severity Status: Chronic Assessment and Plan: * wound care following * wound culture noted * on vancomycin (6) Volume overload: Code(s): E87.70 - Fluid overload, unspecified Status: Chronic Assessment and Plan: * chronic issue at baseline * Removing fluid as we go (7) Hypertension: Code(s): I10 - Essential (primary) hypertension Status: Chronic Assessment and Plan: * Systolic in the 130s. (8) Anemia: Code(s): D64.9 - Anemia, unspecified Status: Chronic Assessment and Plan: * due to ESRD and acute illness * Epogen with HD * Hemoglobin bouncing around 9. (9) Diabetes mellitus: Code(s): E11.9 - Type 2 diabetes mellitus without complications Status: Chronic Assessment and Plan: * follow accu-cheks * glycemic control per hospitalists Subjective Date/time seen: 02/21/24 12:01 Interval history: Patient is feeling about the same. She is not hungry. She denies shortness of breath or chest pain. She is due for diet today. Exam Narrative: General: Large female in NAD Heart: normal S1 and S2; no rub or gallop Lungs: decreased breath sounds at bases Abdomen: obese but soft, nontender, nondistended, positive bowel sounds Extremities: no cyanosis or clubbing; s/p left AKA Skin: right heel with dressings in place. No acute rash. Objective Data Vital Signs Vital Signs: Vital Signs - 24 hr 02/20/24 14:00 02/20/24 17:27 02/20/24 16:00 Temperature 97.6 F Pulse Rate 70 70 79 Respiratory Rate 14 Blood Pressure 122/70
--- NOTE | 2024-02-21 12:00 | PM.PNNEP ---
Progress Note: A&P Assessment and Plan (1) End stage renal disease: Code(s): N18.6 - End stage renal disease Status: Chronic Assessment and Plan: HD should be started within an hour or 2. continue T/T/S dialysis schedule Potassium and BUN are okay. CO2 is normal. Volume status looks okay. (2) Bacteremia: Code(s): R78.81 - Bacteremia Status: Acute Assessment and Plan: noted by blood cultures potential sources include pneumonia, right heel wound and/or HD catheter Catheter exit site looks okay. Most likely from the heel wound On vancomycin Blood cultures done on the are negative to date. The catheter exit site looks okay. the patient is not toxic looking now. White cell count is down. She is afebrile. Repeat cultures are negative. I can hold off on removing the catheter for now. (3) Hyperkalemia: Code(s): E87.5 - Hyperkalemia Status: Acute Assessment and Plan: resolved (4) Bilateral pneumonia: Qualifiers: Lung location: unspecified part of lung Pneumonia type: due to unspecified organism Qualified Code(s): J18.9 - Pneumonia, unspecified organism Code(s): J18.9 - Pneumonia, unspecified organism Status: Acute Assessment and Plan: as noted by admission imaging culture data noted on vancomycin (5) Chronic heel ulcer: Qualifiers: Laterality: right Non-pressure ulcer stage: unspecified non-pressure ulcer stage Qualified Code(s): L97.419 - Non-pressure chronic ulcer of right heel and midfoot with unspecified severity Code(s): L97.409 - Non-pressure chronic ulcer of unspecified heel and midfoot with unspecified severity Status: Chronic Assessment and Plan: wound care following wound culture noted on vancomycin (6) Volume overload: Code(s): E87.70 - Fluid overload, unspecified Status: Chronic Assessment and Plan: chronic issue at baseline Removing fluid as we go (7) Hypertension: Code(s): I10 - Essential (primary) hypertension Status: Chronic Assessment and Plan: Systolic in the 130s. (8) Anemia: Code(s): D64.9 - Anemia, unspecified Status: Chronic Assessment and Plan: due to ESRD and acute illness Epogen with HD Hemoglobin bouncing around 9. (9) Diabetes mellitus: Code(s): E11.9 - Type 2 diabetes mellitus without complications Status: Chronic Assessment and Plan: follow accu-cheks glycemic control per hospitalists Subjective Date/time seen: 02/21/24 12:01 Interval history: Patient is feeling about the same. She is not hungry. She denies shortness of breath or chest pain. She is due for diet today. Exam Narrative: General: Large female in NAD Heart: normal S1 and S2; no rub or gallop Lungs: decreased breath sounds at bases Abdomen: obese but soft, nontender, nondistended, positive bowel sounds Extremities: no cyanosis or clubbing; s/p left AKA Skin: right heel with dressings in place. No acute rash. Objective Data Vital Signs Vital Signs: Vital Signs - 24 hr 02/20/24 14:00 02/20/24 17:27 02/20/24 16:00 Temperature 97.6 F Pulse Rate 70 70 79 Respiratory Rate 14 Blood Pressure 122/70 Pulse Oximetry 98 Oxygen Delivery 02/20/24 20:52 02/20/24 20:00 02/21/24 06:00 Temperature 98.3 F 98.3 F Pulse Rate 84 82 Respiratory Rate 20 20 Blood Pressure 126/69 140/72 Pulse Oximetry 98 97 Oxygen Delivery Room Air 02/20/24 20:00 02/21/24 00:00 02/21/24 10:49 Temperature Pulse Rate 82 84 82 Respiratory Rate 16 Blood Pressure 133/78 Pulse Oximetry 97 Oxygen Delivery 02/21/24 10:52 02/21/24 08:00 Temperature Pulse Rate 78 83 Respiratory Rate Blood Pressure Pulse Oximetry Oxygen Delivery Intake/Output Intake/Output: Intake & Output 02/18/24 02/19/24
[2024-02-21 12:11] LABS: Glucose Point of Care 163 mg/dl (65-105)
[2024-02-21] MEDS: SILVER SULFADIAZINE 1% CR 400 GM JAR (*BKC) 1 APPLIC TOPICAL (13:00)
[2024-02-21] MEDS: COLLAGENASE OINT 30 GM TUBE 1 APPLIC TOPICAL (13:01)
--- NOTE | 2024-02-21 14:10 | PC.NURSE ---
patient taken to dialysis. off unit
[2024-02-21] MEDS: SODIUM CHLORIDE 0.9% IV 1,000 ML 999 ML IV CONT (14:17)
[2024-02-21] MEDS: EPOETIN ALFA-EPBX 10,000 UNITS/ML VIAL 10000 UNITS IV PUSH (17:51)
[2024-02-21] MEDS: VANCOMYCIN 1,000 MG/NS 250 ML 1,000 MG/250 ML BAG 250 MG IVPB (18:40)
[2024-02-21 18:41] LABS: Glucose Point of Care 143 mg/dl (65-105)
[2024-02-21 20:08] LABS: Glucose Point of Care 246 mg/dl (65-105)
[2024-02-22] VITALS (11 sets, daily range): BP systolic 125–140; BP diastolic 68–72; PULSE 79–88; RESP 16–18; TEMP 36.9–37; O2SAT 94–100
[2024-02-22] MEDS: HYDROmorphone HCL INJ (*CRX) 1 MG/ML SYR 0.5 MG IV PUSH ×5 (00:29→16:35)
[2024-02-22 05:08] LABS: Immature Reticulocyte Fraction 41.8 % (3.0-15.9); Reticulocyte Hemoglobin Conten 30.8 pg (28.2-36.6); Reticulocytes Absolute 0.11 10^6/uL (0.02-0.10)
[2024-02-22 05:09] LABS: Basophils Absolute Auto 0.1 K/mm3 (0.0-0.1); Basophils Percent Auto 0.7 % (0.2-1.2); Eosinophils Absolute Auto 1.3 K/mm3 (0-0.3); Eosinophils Percent Auto 7.4 % (0-4.4); Hematocrit 32.8 % (37.0-47.0); Hemoglobin 9.5 g/dL (12.0-15.0); Immature Granulocyte Absolute 0.68 K/mm3 (0.00-0.031); Immature Granulocyte Percent A 3.9 % (0-0.5); Mean Corpuscular Hemoglobin 29.5 pg (26-34); Mean Corpuscular Volume 101.9 fl (80-100); Mean Platelet Volume 8.8 fl (7.4-10.4); Monocytes Absolute Auto 1.7 K/mm3 (0.1-0.6); Monocytes Percent Auto 9.6 % (2.6-8.5); Neutrophils Percent Auto 62.4 % (45.5-73.1); Nucleated Red Blood Cells Perc 0.9 % (0.0-0.2); Platelet Count Result 413 k/mm3 (150-375); Red Blood Count 3.22 M/mm3 (4.2-5.4); Red Cell Distribution Width 13.6 % (11.5-14.5); White Blood Count 17.6 K/mm3 (4.5-10.0)
[2024-02-22 05:17] LABS: Albumin Level 3.2 g/dL (3.5-5.1); Anion Gap 7 mmol/L (4-12); Blood Urea Nitrogen 16 mg/dL (7-17); Calcium 8.4 mg/dL (8.4-10.2); Carbon Dioxide 26 mmol/L (22-30); Chloride 99 mmol/L (98-107); Estimated CRCL calculation 24 ml/min; Estimated Glomerular Filt Rate 18; Glucose 237 mg/dL (65-110); Lactate Dehydrogenase 206 U/L (120-246); Magnesium 2.4 mg/dL (1.6-2.3); Phosphorus 4.4 mg/dL (2.5-4.5); Sodium 132 mmol/L (137-145)
[2024-02-22 05:29] LABS: Platelet Estimate Slightly Increased (Adequate)
[2024-02-22 05:30] LABS: Anisocytosis 1+; Hypochromasia 1+; Schistocytes None Seen
--- NOTE | 2024-02-22 06:42 | PM.IMPN ---
Progress Note: A&P Assessment and Plan (1) SIRS (systemic inflammatory response syndrome): Code(s): R65.10 - Systemic inflammatory response syndrome (SIRS) of non-infectious origin without acute organ dysfunction Status: Acute Assessment and Plan: Meets SIRS criteria: WBC, blood cultures + - lactic acid: 0.8 - 30 mL/kg = 2862 ml - suspected source: pneumonia vs foot ulcer - blood cultures drawn on 02/15: staph aureus. Redrawn 02/17 NGTD - Wound culture 02/17/24: MRSA - MRSA nares + - Echo: LVEF 60-65% with grade I diastolic dysfunction. No vegetation appreciated on study. - UA ordered - CXR: Extensive central left lung hazy airspace disease and mild haziness right lung base. Correlate for asymmetric pulmonary edema versus bilateral pneumonia. - Chest/abdomen/pelvis CTA: No pulmonary embolus. Sensitivity is mildly decreased by motion artifact. Worsened diffuse lung disease, consistent with pneumonia superimposed on chronic lung disease. (2) MRSA bacteremia: Code(s): R78.81 - Bacteremia; B95.62 - Methicillin resistant Staphylococcus aureus infection as the cause of diseases classified elsewhere Status: Acute Assessment and Plan: Blood cultures MRSA + on 02/16/24. Likely source is right foot ulcer which was MRSA + on 02/17/24. Patient started on vancomycin and cefepime. New blood cultures on 02/18/24 NGTD. Echo 02/19/24: no vegetation appreciated. Due to MRSA bacteremia and the presence of several septic areas will consult cardiology for a MATT to further rule out endocarditis. - Vancomycin - Cardiology consult for MATT (3) Sickle cell anemia: Code(s): D57.1 - Sickle-cell disease without crisis Status: Acute Assessment and Plan: H/H 6.7/22.3 yesterday. Requiring a blood transfusion. Response was appropriate. H/H stable at this time. - Iron panel: iron 29, TIBC 157, % saturation 18, Ferritin 594 - PO iron 65 mg daily - Sickle cell positive, absolute retic 0.07, % retic 2.95, retic hgb 26.1 - Hemoglobin electrophoresis for evaluation of sickle cell disease vs trait - LDH and reticulocyte counts daily - Folic acid 1mg daily, IV Venofer, NS 75 ml/hr, and IV Dilaudid PRN for pain control - GI consulted due to ongoing anemia with heme-positive stools. Colonoscopy was normal, no colitis, no AVM, nothing to explain anemia. EGD was normal, no esophagitis, no varices, no gastric ulcers, nothing to explain anemia. - Hematology following (4) Bilateral pneumonia: Qualifiers: Lung location: unspecified part of lung Pneumonia type: due to unspecified organism Qualified Code(s): J18.9 - Pneumonia, unspecified organism Code(s): J18.9 - Pneumonia, unspecified organism Status: Acute Assessment and Plan: - CXR: Extensive central left lung hazy airspace disease and mild haziness right lung base. Correlate for asymmetric pulmonary edema versus bilateral pneumonia. - Chest/abdomen/pelvis CTA: No pulmonary embolus. Sensitivity is mildly decreased by motion artifact. Worsened diffuse lung disease, consistent with pneumonia superimposed on chronic lung disease. - Complicating Factors: comorbidities - started on meropenem and vancomycin. Meropenem deescalated to cefepime. Further deescalated to Augmentin, however due to concern for left shoulder osteomyelitis augment was DC and cefepime HD dosing was restarted. Vancomycin continued due to + MRSA nares. - Viral PCR: negative for Flu/COVID/RSV - MRSA nares: positive - No longer requiring O2 supplementation - supportive treatment tyl - trend labs (5) End-stage renal disease on hemodialysis: Code(s): N18.6 - End stage renal disease; Z99.2 - Dependence on renal dialysis Status: Acute Assessment and Plan: Patient dialysis schedule is typically Friday//Friday. - BUN/Cr 16/3.6 today. Will receive dialysis on her normal schedule. - Nephrology following - MRSA bacteremia on prior blood cultures. New blood cul
[2024-02-22 08:18] LABS: Glucose Point of Care 194 mg/dl (65-105)
[2024-02-22] MEDS: cloNIDine HCL 0.2 MG TABLET PO (09:42)
[2024-02-22] MEDS: CHOLECALCIFEROL 400 UNITS TABLET (VIT D) PO (09:42)
[2024-02-22] MEDS: metOLazone 5 MG TABLET 10 MG PO (09:42)
[2024-02-22] MEDS: MULTIVITAMINS THERAPEUTIC TAB (*BKC) 1 TABLET PO (09:43)
[2024-02-22] MEDS: PANTOPRAZOLE SODIUM IV 40 MG VIAL IV PUSH (09:43)
[2024-02-22] MEDS: ASCORBIC ACID 500 MG TABLET PO ×2 (09:43→17:27)
[2024-02-22] MEDS: carvediloL 12.5 MG TABLET PO ×2 (09:43→17:27)
[2024-02-22] MEDS: amLODIPine BESYLATE 5 MG TABLET 10 MG PO (09:43)
[2024-02-22] MEDS: FAMOTIDINE 10 MG TABLET PO (09:43)
[2024-02-22] MEDS: FERROUS SULFATE 325 MG TABLET DR PO ×2 (09:43→17:27)
[2024-02-22] MEDS: FOLIC ACID 1 MG TABLET PO (09:43)
[2024-02-22] MEDS: lisinopriL 20 MG TABLET PO (09:43)
[2024-02-22] MEDS: HEPARIN SODIUM 5,000 UNITS/ML VIAL 5000 UNITS SUB-Q (09:43)
--- NOTE | 2024-02-22 10:45 | PC.NURSE ---
pt taken down to MRI
--- NOTE | 2024-02-22 11:20 | PC.NURSE ---
pt returned to room from MRI
[2024-02-22 11:53] LABS: Glucose Point of Care 229 mg/dl (65-105)
[2024-02-22] MEDS: INSULIN ASPART (*BKC) 100 UNITS/ML SUB-Q ×2 (12:10→17:26)
[2024-02-22] MEDS: TOLNAFTATE 1% POWDER 45 GM BTL 1 APPLIC TOPICAL (12:28)
[2024-02-22] MEDS: COLLAGENASE OINT 30 GM TUBE 1 APPLIC TOPICAL (12:29)
[2024-02-22] MEDS: SILVER SULFADIAZINE 1% CR 400 GM JAR (*BKC) 1 APPLIC TOPICAL (12:29)
[2024-02-22 13:05] LABS: Appearance Urine Cloudy (Clear); Bacteria Urine None Seen /hpf; Bilirubin Urine Negative (Negative); Blood Urine 2+ (Negative); Color Urine Yellow (Yellow); Glucose Urine UA 1+ mg/dL (Negative); Ketones Urine Negative (Negative); Leukocyte Esterase Ur 1+ LEU/UL (Negative); Need Manual Microscopic Reviewed; Nitrate Urine Negative (Negative); Protein Urine 3+ mg/dL (Negative); RBC Urine 21-50 /hpf (0-2); Specific Grav Ur 1.021 (1.001-1.035); Squamous Epithelial Cell Urine Few /hpf (Few); Urobilinogen Urine 0.2 mg/dL (<2.0); WBC Urine >100 /hpf (0-3)
[2024-02-22 13:08] LABS: Add Urine Microscopic? YES
--- NOTE | 2024-02-22 15:45 | PCOTNOTE ---
Attempted to see pt for Occupational Therapy treatment. Pt is unavailable due to currently having testing completed in pt's room. Will attempt tomorrow per poc duration/frequency.
--- NOTE | 2024-02-22 15:46 | ECG_ITS ---
SEE SCANNED COPY FOR CONFIRMED REPORT MTDD
[2024-02-22] MEDS: CEFEPIME 1 GM/NS 50 ML 1 GM/50 ML BAG IVPB (16:35)
[2024-02-22 17:17] LABS: Glucose Point of Care 276 mg/dl (65-105)
--- NOTE | 2024-02-23 16:22 | PM.TDS ---
Transfer Discharge Sum: Prov Provider Date of admission: 02/16/24 17:28 Primary care physician: Cherise Patrick, PA Admitting clinician: Yuli Alvarado MD Consults: 02/16/24 Consult to Physician Routine Comment: Consulting Provider: Lars Millan director call/MD group to consult: Monty Reason for consultation: HD, hyperkalemia Has provider been notified: Yes Consult to Physician Routine Comment: Consulting Provider: Dinh Sanchez director call/MD group to consult: Jose Reason for consultation: guiac positive, anemia Has provider been notified: Yes 02/17/24 Wound/ET Consult Routine Reason for Consult:: Diabetic foot wound right heel 02/18/24 Consult to Physician Routine Comment: Called office and notified them of consult Consulting Provider: Mateo Morrissey director call/MD group to consult: Heme/onc Reason for consultation: new sickle cell diagnosis Has provider been notified: Yes 02/22/24 Consult to Physician Routine Comment: Ashlyn spoke to DR Mark @ 08:47am - Consulting Provider: Luis Mcmahan director call/MD group to consult: orthopedics-called Dr Mark @ 18:54pm cancelled consult as pt going to [facility] this evening-Radha Jansen/[employer] 2nd medical Reason for consultation: osteomyelitis left shoulder Has provider been notified: Yes Consult to Physician Routine Comment: Spoke to Exchange @ 16:06pm () Consulting Provider: Golden Mauricio director call/MD group to consult: Cardiology-No one from Cardiology called back this evening for this consult(told hilda Galvez was interventionalist and hilda says 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 Galvez/[facility] DS: Admitting Diagnosis Discharge Date 02/22/24 Admitting Diagnosis SIRS MRSA bacteremia Sickle cell anemia Bilateral pneumonia End stage renal disease on hemodialysis Hypertension CHF Chronic heel ulcer Diabetes mellitus with chronic kidney disease Osteomyelitis Septic arthritis DS: Discharge Diagnosis Discharge Diagnosis (1) SIRS (systemic inflammatory response syndrome): Code(s): R65.10 - Systemic inflammatory response syndrome (SIRS) of non-infectious origin without acute organ dysfunction Status: Acute (2) MRSA bacteremia: Code(s): R78.81 - Bacteremia; B95.62 - Methicillin resistant Staphylococcus aureus infection as the cause of diseases classified elsewhere Status: Acute (3) Sickle cell anemia: Code(s): D57.1 - Sickle-cell disease without crisis Status: Acute (4) Bilateral pneumonia: Qualifiers: Lung location: unspecified part of lung Pneumonia type: due to unspecified organism Qualified Code(s): J18.9 - Pneumonia, unspecified organism Code(s): J18.9 - Pneumonia, unspecified organism Status: Acute (5) End-stage renal disease on hemodialysis: Code(s): N18.6 - End stage renal disease; Z99.2 - Dependence on renal dialysis Status: Acute (6) Hypertension: Code(s): I10 - Essential (primary) hypertension Status: Chronic (7) CHF (congestive heart failure): Qualifiers: Heart failure chronicity: acute on chronic Heart failure type: unspecified Qualified Code(s): I50.9 - Heart failure, unspecified Code(s): I50.9 - Heart failure, unspecified Status: Chronic (8) Chronic heel ulcer: Qualifiers: Laterality: right Non-pressure ulcer stage: unspecified non-pressure ulcer stage Qualified Code(s):
== END 2024-02-22 19:00 | disposition short-term general hospital (02) | DRG 720 ==
LOC: ANHED 09:51 → ANHIMU 18:54 → ANH2MED 02-19 22:17
PROVIDERS: Anesthesiology; Internal Medicine; Internal Medicine Gastroenterology; Internal Medicine Nephrology; Nurse Practitioner; Nurse Practitioner Family; Student in an Organized Health Care Education/Training Program; Admitting Provider General Practice; Emergency Provider Student in an Organized Health Care Education/Training Program; PCP Physician Assistant; Visit Provider General Practice
PROC: 0DJ08ZZ Inspection of Upper Intestinal Tract, Via Natural or Artificial Opening Endoscopic (ICD-10-PCS; CPT 43235; principal; 2024-02-19 14:00)
DX: A41.02 Sepsis due to Methicillin resistant Staphylococcus aureus (principal); M86.9 Osteomyelitis, unspecified; M00.9 Pyogenic arthritis, unspecified; M60.9 Myositis, unspecified; J18.9 Pneumonia, unspecified organism; E11.621 Type 2 diabetes mellitus with foot ulcer; I13.2 Hypertensive heart and chronic kidney disease with heart failure and with stage 5 chronic kidney disease, or end stage renal disease; I50.9 Heart failure, unspecified; N18.6 End stage renal disease; N05.9 Unspecified nephritic syndrome with unspecified morphologic changes; E11.22 Type 2 diabetes mellitus with diabetic chronic kidney disease; D57.1 Sickle-cell disease without crisis; D50.9 Iron deficiency anemia, unspecified; E87.5 Hyperkalemia; E11.21 Type 2 diabetes mellitus with diabetic nephropathy; E78.5 Hyperlipidemia, unspecified; L97.419 Non-pressure chronic ulcer of right heel and midfoot with unspecified severity; D64.9 Anemia, unspecified; B95.62 Methicillin resistant Staphylococcus aureus infection as the cause of diseases classified elsewhere; R19.5 Other fecal abnormalities; R32 Unspecified urinary incontinence; H54.7 Unspecified visual loss; H40.9 Unspecified glaucoma; Z20.822 Contact with and (suspected) exposure to COVID-19; Z99.2 Dependence on renal dialysis; Z89.512 Acquired absence of left leg below knee; Z79.4 Long term (current) use of insulin
CPT/HCPCS: 36415; 36430; 71046; 71275; 73030; 73201; 73221; 74177; 76705; 76882; 80048; 80053; 80069; 80202; 81001; 82607; 82728; 82746; 82948; 83021; 83540; 83550; 83605; 83615; 83735; 84484; 84702; 84703; 85014; 85018; 85025; 85046; 85610; 85660; 85730; 86140; 86706; 86850; 86900; 86901; 86923; 87040; 87070; 87077; 87086; 87147; 87181; 87205; 87340; 87637; 87641; 93005; 93306; 96365; 96366; 96367; 96375; 97162; 97166; 99285; A9270; C9113; G0257; J0612; J0692; J1170; J1644; J1756; J1815; J2185; J2270; J2405; J2704; J3370; J7030; J7050; J7120; P9016; Q4081; Q5105; Q9967

== ENCOUNTER 2024-05-15 12:56 | Inpatient (IN) | payer OTHER, SELFPAY ==
[2024-05-15] VITALS (23 sets, daily range): BP systolic 139–168; BP diastolic 74–91; PULSE 96–104; RESP 13–27; TEMP 36.7–36.8; O2SAT 91–100
--- NOTE | ~2024-05-15 | XR_ITS ---
Portable chest x-ray Comparison: 05/15/2024 Clinical History: Chest pain Findings: Right-sided central venous line is in satisfactory position. Minimal interstitial disease at the left upper lobe region is similar to prior exam. Right lung clear. Cardiomediastinal silhouet te is stable. Bones and soft tissues are unremarkable. Impression: Stable mild interstitial disease at the left upper lobe region. Right lung clear. Stable support line. Reviewed, dictated and finalized at location . Impression: Stable mild interstitial disease at the left upper lobe region. Right lung clear. Stable support line.
--- NOTE | ~2024-05-15 | CT_ITS ---
EXAMINATION: CT shoulder LT wo con DATE: 05/15/2024 13:34 INDICATION: Left shoulder joint swelling TECHNIQUE: High resolution computed tomography (CT) of the left shoulder was performed without intrav enous contrast. Additional sagittal and coronal reconstructions were performed. Automated exposure co ntrol and iterative reconstruction technique were employed. The dose-length product was 476.92 mGy-cm . COMPARISON: Left shoulder MR dated 02/22/[address] dated 02/21/2024 FINDINGS: Increase in size of a large complex fluid collection with internal septations in the subacromial subd eltoid bursa which measures up to 10.7 cm AP, 6.5 cm craniocaudally and up to 3 cm in thickness. The fluid collection also extends into the subcoracoid bursa measuring approximately 5 x 5 x 2.5 cm. The fluid collection. The remaining superficial to the rotator cuff without a definitive joint effusion. Assessment on noncontrast CT is however significantly more limited than on prior MRI. There is no sig nificant osteolysis along with pathologic fracture and fragmentation of the coracoid process likely r elated to progression of osteomyelitis which was noted on the prior MRI. There is also been progressi on of osteolysis consistent with osteomyelitis along the undersurface of the acromion. No evident ost eolysis seen at the humeral head where there are also abnormal marrow signal change on the MRI. Uncha nged mild acromion clavicular osteoarthritis. Left glenohumeral joint space remains normal. Chronic i nterstitial lung disease with no significant change in interstitial and groundglass opacities and par enchymal calcifications in the visualized left lung. Atherosclerotic 1 artery calcific lesions. Parti ally visualized tip of a central venous catheter extending caudally from the superior vena cava to th e superior cavoatrial junction. IMPRESSION: 1. Large complex left subacromial/subdeltoid and subcoracoid bursal fluid collections with associated osteolysis at the coracoid process and undersurface of the acromion consistent with septic bursitis and associated osteomyelitis both of which have progressed since 02/22/2024. Reviewed, dictated and finalized at location A. IMPRESSION: 1. Large complex left subacromial/subdeltoid and subcoracoid bursal fluid colle ctions with associated osteolysis at the coracoid process and undersurface of t he acromion consistent with septic bursitis and associated osteomyelitis both o f which have progressed since 02/22/2024.
--- NOTE | ~2024-05-15 | XR_ITS ---
XR chest 1V portable Ordering provider: Yuli Alvarado MD History: 33 years Female with . Back pain . Comparison: May 18, 2024 FINDINGS: MEDIASTINUM: The cardiac silhouette is slight cardiomegaly. Right permacath with the tip overlying th e superior vena cava. LUNGS: No effusion or pneumothorax. Opacification in the left upper and lower lobe area is seen which is suggestive of pneumonia. Clinical correlation advised. Fibrotic changes are also possible. OTHER: No free air under the diaphragm. IMPRESSION: Opacification in the left upper and lower lobe area which is suggestive of pneumonia. Clinical correl ation advised. Fibrotic changes are also possible. Reviewed, dictated and finalized at location A. IMPRESSION: Opacification in the left upper and lower lobe area which is suggestive of pneu monia. Clinical correlation advised. Fibrotic changes are also possible.
--- NOTE | ~2024-05-15 | XR_ITS ---
Left Shoulder Technique: AP and scapular Y views were obtained. Clinical History: Pain Findings: No fracture or dislocation is seen. Osseous alignment is anatomic. The glenohumeral and acr omioclavicular joint spaces are preserved. Soft tissues are unremarkable. Impression: Unremarkable left shoulder radiographs. Reviewed, dictated and finalized at [facility]. Impression: Unremarkable left shoulder radiographs.
--- NOTE | ~2024-05-15 | XR_ITS ---
EXAMINATION: XR chest 1V portable DATE: 05/15/2024 13:39 INDICATION: Cough TECHNIQUE: frontal view of the chest was obtained. COMPARISON: Chest radiograph and CT dated 02/16/2024 FINDINGS: Fine reticular pattern scattered throughout the left lung corresponding to chronic interstitial lung disease with parenchymal calcifications on the prior CT no new airspace opacities, pulmonary edema, p leural effusion or pneumothorax. Cardiomegaly. Tip of a large-bore dual-lumen right internal jugular central venous catheter at the superior cavoatrial junction. IMPRESSION: 1. Subtle chronic interstitial lung disease scattered throughout the left lung. No acute cardiopulmon vivek disease. 2. Cardiomegaly. Reviewed, dictated and finalized at location A. IMPRESSION: 1. Subtle chronic interstitial lung disease scattered throughout the left lung. No acute cardiopulmonary disease. 2. Cardiomegaly.
[2024-05-15 14:02] LABS: Basophils Percent Auto 0.3 % (0.2-1.2); Eosinophils Absolute Auto 0.9 K/mm3 (0-0.3); Eosinophils Percent Auto 7.4 % (0-4.4); Hematocrit 33.6 % (37.0-47.0); Immature Granulocyte Absolute 0.04 K/mm3 (0.00-0.031); Immature Granulocyte Percent A 0.3 % (0-0.5); Lymphocytes Absolute Auto 2.48 K/mm3 (0.9-3.2); Lymphocytes Percent Auto 21.3 % (18.3-44.2); Mean Corpuscular HGB Conc 29.8 g/dl (32-36); Mean Corpuscular Hemoglobin 29.6 pg (26-34); Mean Corpuscular Volume 99.4 fl (80-100); Mean Platelet Volume 8.9 fl (7.4-10.4); Monocytes Percent Auto 8.6 % (2.6-8.5); Neutrophils Absolute Auto 7.2 K/mm3 (1.3-6.7); Neutrophils Percent Auto 62.1 % (45.5-73.1); Platelet Count Result 441 k/mm3 (150-375); Red Blood Count 3.38 M/mm3 (4.2-5.4); White Blood Count 11.6 K/mm3 (4.5-10.0)
[2024-05-15 14:12] LABS: Alanine Aminotransferase 45 U/L (6-35); Albumin Level 3.3 g/dL (3.5-5.1); Alkaline Phosphatase 171 U/L (38-126); Anion Gap 9 mmol/L (4-12); Aspartate Amino Transferase 31 U/L (14-36); Bilirubin,Total 0.3 mg/dL (0.2-1.3); Blood Urea Nitrogen 33 mg/dL (7-17); Calcium 8.4 mg/dL (8.4-10.2); Carbon Dioxide 23 mmol/L (22-30); Chloride 105 mmol/L (98-107); Estimated CRCL calculation 20 ml/min; Estimated Glomerular Filt Rate 13; Glucose 176 mg/dL (65-110); Potassium 5.2 mmol/L (3.4-5.0); Sodium 137 mmol/L (137-145)
--- NOTE | 2024-05-15 14:27 | ED.GENADULT ---
HPI - General Adult General Chief complaint: Extremity Problem,Nontraumatic <Juan Huizar MD - Last Filed: 05/15/24 14:39> Stated complaint: mass to L shoulder <Juan Huizar MD - Last Filed: 05/15/24 14:39> Time Seen by Provider: 05/15/24 13:11 <Juan Huizar MD - Last Filed: 05/15/24 14:39> History of Present Illness HPI narrative: patient 33-year-old female who presents emergency department chief complaint of left shoulder pain and swelling. Patient has prior history of septic bursitis with osteomyelitis of the left shoulder the patient has end-stage renal disease on dialysis Friday the patient did not go to dialysis today due to the pain in left shoulder the patient reports feels similar to whenever she had the infection previously patient reports back in February she had an incision and drainage of the shoulder and then was treated with IV antibiotics for months under <Juan Huizar MD - Last Filed: 05/15/24 14:39> patient 33-year-old female who presents to the emergency department chief complaint of left shoulder pain and swelling. Patient has prior history of septic bursitis with osteomyelitis of the left shoulder the patient has end-stage renal disease on dialysis Friday the patient did not go to dialysis today due to the pain in left shoulder the patient reports feels similar to whenever she had the infection previously patient reports back in February she had an incision and drainage of the shoulder and then was treated with IV antibiotics for months under <Cayden Christianson MD - Last Filed: 05/16/24 06:37> Related Data Home medications: Home Medications Medication Instructions Recorded Confirmed amlodipine 10 mg tablet 10 mg PO DAILY 08/04/23 02/16/24 carvedilol 12.5 mg tablet 12.5 mg PO BID 08/04/23 02/16/24 insulin lispro 100 unit/mL See Rx Instructions .Route .COMPLEX 08/04/23 02/16/24 subcutaneous solution nystatin 100,000 unit/gram topical 1 applic topical PRN 08/04/23 02/16/24 powder potassium chloride 20 mEq 20 meq PO DAILY 08/04/23 02/16/24 tablet,extended release(part/cryst) ascorbic acid (vitamin C) 500 mg 500 mg PO BID 08/05/23 02/16/24 tablet ferrous sulfate 325 mg (65 mg 325 mg PO DAILY 08/05/23 02/16/24 iron) tablet melatonin 5 mg PO HS PRN Prophylaxis 08/05/23 02/16/24 multivitamin 1 tablet PO DAILY 08/05/23 02/16/24 ondansetron 4 mg disintegrating 4 mg PO Q8H 08/05/23 02/16/24 tablet bisacodyl 10 mg rectal suppository 10 mg RECTAL DAILY PRN Constipation 02/16/24 02/16/24 cholecalciferol (vitamin D3) 10 10 mcg PO DAILY 02/16/24 02/16/24 mcg (400 unit) capsule (Vitamin D3) clonidine HCl 0.2 mg tablet 0.2 mg PO DAILY 02/16/24 02/16/24 cyclobenzaprine 10 mg tablet 10 mg PO Q8H PRN muscle spasm 02/16/24 02/16/24 famotidine 10 mg chewable tablet 10 mg PO DAILY 02/16/24 02/16/24 loperamide 2 mg capsule 2 mg PO Q8H PRN Diarrhea 02/16/24 02/16/24 magnesium citrate (Citroma oral 300 ml PO DAILY PRN Constipation 02/16/24 02/16/24 solution) metoclopramide HCl 5 mg tablet 5 mg PO BID PRN Nausea And Vomiting 02/16/24 02/16/24 metolazone 5 mg tablet 10 mg PO DAILY 02/16/24 02/16/24 metronidazole 500 mg tablet 500 mg DAILY 02/16/24 02/16/24 naproxen 250 mg tablet 500 mg PO DAILY 02/16/24 02/16/24 pantoprazole 40 mg tablet,delayed 40 mg PO DAILY 02/16/24 02/16/24 release silver sulfadiazine 1 % topical 1 applic topical DAILY 02/16/24 02/16/24 cream (Silvadene) tramadol 50 mg tablet 50 mg PO QID PRN Moderate Pain 02/16/24 02/16/24 (Scale Score 5-6) <Juan Huizar MD - Last Filed: 05/15/24 14:39> Allergies/adverse reactions: Allergies Allergy/AdvReac Type Severity Reaction Status Date / Time No Known Allergies Allergy Verified 05/15/24 13:04 <Juan Huizar MD - Last Filed: 05/15/24 14:39> Review of Systems Review of Systems: A 10 system review of
--- NOTE | 2024-05-15 15:59 | PC.NURSE ---
pt accepted @ [facility] placed on patient bed wait list
[2024-05-15] MEDS: CEFEPIME 2 GM/NS 50 ML 2 GM/50 ML BAG IVPB (16:11)
[2024-05-15] MEDS: VANCOMYCIN 2,000 MG/NS 500 ML BAG 250 MG IVPB (17:01)
--- NOTE | 2024-05-15 19:24 | PC.NURSE ---
Report received from JIMMIE Hook. Assumed care of patient at this time. Patient resting with eyes closed on stretcher, VSS. Call light within reach.
--- NOTE | 2024-05-15 20:36 | PC.NURSE ---
Patient IV abx finished infusing, IV line flushed. Patient denies any pain or complaints at this time. Patient resting comfortably on stretcher. Call light within reach.
--- NOTE | 2024-05-15 20:38 | PC.NURSE ---
Called [facility] at [phone], Patient waiting for bed.
[2024-05-16] VITALS (59 sets, daily range): BP systolic 124–197; BP diastolic 68–114; PULSE 91–115; RESP 14–33; TEMP 36.5–37.3; O2SAT 92–100; BMI 34.9
--- NOTE | 2024-05-16 00:21 | PC.NURSE ---
Patient changed and linen changed. Patient able to assist with turning. Patient also boosted in bed upon request. Patient c/o 10/10 pain to the left shoulder. ERP notified of no prn pain med orders. ERP placing orders.
[2024-05-16] MEDS: HYDROmorphone HCL INJ (*CRX) 1 MG/ML SYR 0.5 MG IV PUSH ×3 (00:34→17:50)
--- NOTE | 2024-05-16 02:47 | PC.NURSE ---
Patient given water upon request. Patient stated she did not get dialysis on Friday which it was scheduled. ERP notified and lab orders placed.
[2024-05-16 05:43] LABS: Anion Gap 6 mmol/L (4-12); Blood Urea Nitrogen 33 mg/dL (7-17); Calcium 8.6 mg/dL (8.4-10.2); Carbon Dioxide 24 mmol/L (22-30); Chloride 109 mmol/L (98-107); Estimated CRCL calculation 19 ml/min; Estimated Glomerular Filt Rate 13; Glucose 135 mg/dL (65-110); Sodium 139 mmol/L (137-145)
--- NOTE | 2024-05-16 05:44 | PC.NURSE ---
Patient linen and brief changed. Patient stated she is still in pain. ERP notified and placing PRN pain med orders. Call light within reach.
--- NOTE | 2024-05-16 05:45 | ECG_ITS ---
Test Date: 2024-05-16 05:53:25 Measurements Intervals [place] Rate: 110 P: 51 [place]: 144 QRS: -31 QRSD: 86 T: 43 QT: 324 QTc: 438 Interpretive Statements SINUS TACHYCARDIA LEFT AXIS DEVIATION DELAYED PRECORDIAL R/S TRANSITION ABNORMAL ECG No previous ECG available for comparison Electronically Signed On 05-16-2024 07:34:08 CDT by Azar Cook D.O.
[2024-05-16] MEDS: ALBUTEROL SULFATE NEB 2.5 MG/3 ML INH INHALATION (05:55)
[2024-05-16 05:57] LABS: Vancomycin Random 22.8 ug/mL (10-20)
[2024-05-16] MEDS: FUROSEMIDE INJ 40 MG/4 ML VIAL 20 MG IV PUSH (06:03)
[2024-05-16] MEDS: SODIUM BICARBONATE 8.4% 50 MEQ/50 ML SYRINGE IV PUSH (06:03)
[2024-05-16] MEDS: SODIUM ZIRCONIUM CYCLOSILICATE 10 GM POWD.PACK PO (06:03)
[2024-05-16] MEDS: CALCIUM GLUC 1,000 MG/NS 50 ML 1,000 MG/50 ML BAG 100 MG IVPB (06:11)
[2024-05-16 07:01] LABS: Hepatitis B Surface Antigen Negative (Negative)
[2024-05-16 07:19] LABS: Hepatitis B Surface Anti Res Positive
--- NOTE | 2024-05-16 07:19 | ADMGEN ---
This patient, Gay Canales, was admitted to IMU Room 200-01 on 05/16/24 at 0711. Patient/family oriented to hospital policies and general routines including ID bracelet, bed and alarms, visiting hours, pain management, procedures, bathroom and other care routines, personal items, smoking policy, room service/diet, and visiting hours. Information on how to activate the Rapid Response Team has been discussed. Patient/Family are encouraged to report perceived risks to care and to ask questions if they do not understand what they are told or what they should do.
--- NOTE | 2024-05-16 08:59 | PM.IMHP ---
H&P: HPI History of Present Illness Date/Time: 05/16/24 08:59 Chief Complaint: Mass to left shoulder Narrative: This is a 33-year-old female with significant past medical history of anemia secondary to end-stage renal disease, blindness in both eyes, CHF, chronic heel ulcer, diabetes mellitus, diabetic neuropathy, diastolic heart failure, hypertension, hyperlipidemia, nephrotic syndrome, possible sickle cell disease currently getting workup, left BKA who presented to hospital from [facility] with chief complaint of left shoulder pain and swelling. Patient states that the pain and swelling started during her last admission which was back in February of this year. She stated that they thought the pain in her shoulder was due to sickle cell disease and was worked up for that. Her sickle cell screen was positive on 02/16/2024, absolute Retic count was 0.11 on 02/22/2024. Hematology and Oncology was consulted last admission and stated in his note that she had a family history of 2 cousins with sickle cell disease and trait but has never been diagnosed herself. Oncology felt like she was in a sickle cell crisis at the time. Her hospital stay in February was also complicated with MRSA Bacteremia. She was transferred to [facility] on 02/23/24. Patient denies any fever, chills, nausea, vomiting, diarrhea, abdominal pain, chest pain, shortness of breath Patient endorses 10/10 pain to her left shoulder. Workup in the hospital included a shoulder x-ray which was essentially negative. A shoulder CT was also performed and showed large complex left subacromial/subdeltoid and subcoracoid bursal fluid collection it is with associated osteolysis at the coracoid process and undersurface of the acromion consistent with septic bursitis and associated osteomyelitis both of which progressed since imaging on 02/22/2024. Chest x-ray showed subtle chronic interstitial lung disease scattered throughout the left lung. Initial labs showed a white blood cell count of 11.6, hemoglobin 10.0, potassium 5.2, creatinine 4.6, EGFR 13, blood sugars ranging 135-170, ALT 45, alk-phos 171, albumin 3.3. Hepatitis panel was also done and shown a negative hepatitis B antigen and positive antibody. Blood cultures were obtained and are pending. Last echo on 02/19/2024 was reviewed and showed normal LV systolic function with an estimated EF of 60-65%, grade 1 diastolic dysfunction. Patient was started on cefepime and vancomycin while in the ED. she also received dilaudid, Lokelma, sodium bicarb, albuterol, and Lasix. Patient was put on the [facility] transfer list and was accepted by Dr. Lucia while in ER. She was admitted here for dialysis. Review of Systems Review of Systems: All systems reviewed & are unremarkable except as noted in HPI and below Constitutional: Constitutional: Reports as per HPI and Reports no additional constitutional complaints Eyes: Eyes: Reports as per HPI and Reports no additional eye complaints ENT: Reports system reviewed and no additional complaints, except as documented and Reports as per HPI Cardiovascular: Cardiovascular: Reports as per HPI and Reports no additional cardiovascular complaints Respiratory: Respiratory: Reports as per HPI and Reports no additional respiratory complaints Gastrointestinal: Gastrointestinal: Reports as per HPI and Reports no additional gastrointestinal complaints Genitourinary: Genitourinary: Reports no additional female genitourinary complaints and Reports as per HPI Musculoskeletal: Musculoskeletal: Reports no additional musculoskeletal complaints and Reports as per HPI Integumentary/Breasts: Skin/Breast: Reports system reviewed and no additional complaints, except as docu and Reports as per HPI Neurologic: Reports system reviewed and no additional complaints, except as documented and Reports as per HPI Psychiatric: Psychiatric: Reports no additional psychiatric complaints and Reports as per HPI PMFSH Past Medical History Me
[2024-05-16 09:46] LABS: Basophils Percent Auto 0.3 % (0.2-1.2); Eosinophils Absolute Auto 0.4 K/mm3 (0-0.3); Eosinophils Percent Auto 4.3 % (0-4.4); Hematocrit 36.4 % (37.0-47.0); Hemoglobin 10.9 g/dL (12.0-15.0); Immature Granulocyte Absolute 0.03 K/mm3 (0.00-0.031); Immature Granulocyte Percent A 0.3 % (0-0.5); Lymphocytes Absolute Auto 1.26 K/mm3 (0.9-3.2); Lymphocytes Percent Auto 12.2 % (18.3-44.2); Mean Corpuscular HGB Conc 29.9 g/dl (32-36); Mean Corpuscular Hemoglobin 30.2 pg (26-34); Mean Corpuscular Volume 100.8 fl (80-100); Mean Platelet Volume 9.4 fl (7.4-10.4); Monocytes Absolute Auto 0.8 K/mm3 (0.1-0.6); Monocytes Percent Auto 7.5 % (2.6-8.5); Neutrophils Absolute Auto 7.8 K/mm3 (1.3-6.7); Neutrophils Percent Auto 75.4 % (45.5-73.1); Platelet Count Result 542 k/mm3 (150-375); Red Blood Count 3.61 M/mm3 (4.2-5.4); Red Cell Distribution Width 15.3 % (11.5-14.5); White Blood Count 10.3 K/mm3 (4.5-10.0)
[2024-05-16 09:51] LABS: CRP 6.2 mg/dL (<1.0)
[2024-05-16 09:59] LABS: Platelet Estimate Increased (Adequate)
[2024-05-16 10:00] LABS: Anisocytosis 1+; Hypochromasia 1+; Schistocytes None Seen
--- NOTE | 2024-05-16 10:31 | P.CONNP_ITS ---
Assessment and Plan Assessment and plan (1) End stage renal disease: Code(s): N18.6 - End stage renal disease Status: Chronic Assessment and Plan: * missed treatment yesterday * HD today * resume //Friday dialysis schedule next week * follow electrolytes, volume status, and clearance (2) Hyperkalemia: Code(s): E87.5 - Hyperkalemia Status: Acute Assessment and Plan: * as noted on admission * s/p medical management * further stabilization with dialysis today * follow trend of K+ (3) Septic arthritis: Code(s): M00.9 - Pyogenic arthritis, unspecified Status: Acute Assessment and Plan: * as noted by admission imaging: * X-ray of left shoulder negative * CT of left shoulder with large complex left subacromial/subdeltoid and subcoracoid bursal fluid collection measuring 10.7 cm x 6.5 cm with asso ciated osteolysis at the coracoid process and undersurface of the acromion consistent with septic bursitis and associated osteomyelitis both of which have progressed since 02/22/2024 * on broad spectrum antibiotics * pain control * follow culture data * Orthopedics consulted * tentative plan is for eventual transfer to [facility] for further therapy (4) Osteomyelitis of shoulder, left: Code(s): M86.9 - Osteomyelitis, unspecified Status: Acute Assessment and Plan: * see #3 (5) Hypertension: Code(s): I10 - Essential (primary) hypertension Status: Chronic Assessment and Plan: * elevated on admission * suspect pain playing a role * resume home medications * dialysis may help to some degree * follow trend of hemodynamics (6) Anemia: Code(s): D64.9 - Anemia, unspecified Status: Chronic Assessment and Plan: * due to ESRD and acute illness * Epogen with HD * follow H/H (7) Diabetes mellitus: Code(s): E11.9 - Type 2 diabetes mellitus without complications Status: Chronic Assessment and Plan: * follow accu-cheks * glycemic control per hospitalists I will continue to follow the patient with you while she remains hospitalized make further recommendations as deemed necessary. Thank you for allowing me to participate in the care of this patient. History of Present Illness Reason for Consult Consult date: 05/16/24 Reason for consult: end stage renal disease Chief Complaint Chief complaint: hyperkalemia,end stage renal diseasse,osteomyeliti History of Present Illness Narrative: The patient is a 33-year-old female with extensive past medical history as outlined below who presented to [facility] Emergency Room for further evaluation of left shoulder pain. The patient reports that she has had left shoulder pain for the last 3 months and it appeared to have started during her last hospitalization here at [facility] in February of 2024. During that hospital stay, there was concern that this pain was related to sickle cell crisis although imaging at that time did demonstrate evidence of possible inflammation /infection in her left shoulder. Her February 2024 hospitalization was complicated by MRSA bacteremia and she was subsequently transferred to the [facility] for further evaluation and treatment. Unfortunately, I am unclear if the issues/ concerns with her left shoulder at that time in February 2020 for fully addressed during her hospitalization at [facility]. As the pain in her left shoulder has been progressively getting
--- NOTE | 2024-05-16 10:31 | PM.CNNEP ---
Assessment and Plan Assessment and plan (1) End stage renal disease: Code(s): N18.6 - End stage renal disease Status: Chronic Assessment and Plan: missed treatment yesterday HD today resume //Friday dialysis schedule next week follow electrolytes, volume status, and clearance (2) Hyperkalemia: Code(s): E87.5 - Hyperkalemia Status: Acute Assessment and Plan: as noted on admission s/p medical management further stabilization with dialysis today follow trend of K+ (3) Septic arthritis: Code(s): M00.9 - Pyogenic arthritis, unspecified Status: Acute Assessment and Plan: as noted by admission imaging: X-ray of left shoulder negative CT of left shoulder with large complex left subacromial/subdeltoid and subcoracoid bursal fluid collection measuring 10.7 cm x 6.5 cm with associated osteolysis at the coracoid process and undersurface of the acromion consistent with septic bursitis and associated osteomyelitis both of which have progressed since 02/22/2024 on broad spectrum antibiotics pain control follow culture data Orthopedics consulted tentative plan is for eventual transfer to [facility] for further therapy (4) Osteomyelitis of shoulder, left: Code(s): M86.9 - Osteomyelitis, unspecified Status: Acute Assessment and Plan: see #3 (5) Hypertension: Code(s): I10 - Essential (primary) hypertension Status: Chronic Assessment and Plan: elevated on admission suspect pain playing a role resume home medications dialysis may help to some degree follow trend of hemodynamics (6) Anemia: Code(s): D64.9 - Anemia, unspecified Status: Chronic Assessment and Plan: due to ESRD and acute illness Epogen with HD follow H/H (7) Diabetes mellitus: Code(s): E11.9 - Type 2 diabetes mellitus without complications Status: Chronic Assessment and Plan: follow accu-cheks glycemic control per hospitalists I will continue to follow the patient with you while she remains hospitalized make further recommendations as deemed necessary. Thank you for allowing me to participate in the care of this patient. History of Present Illness Reason for Consult Consult date: 05/16/24 Reason for consult: end stage renal disease Chief Complaint Chief complaint: hyperkalemia,end stage renal diseasse,osteomyeliti History of Present Illness Narrative: The patient is a 33-year-old female with extensive past medical history as outlined below who presented to [facility] Emergency Room for further evaluation of left shoulder pain. The patient reports that she has had left shoulder pain for the last 3 months and it appeared to have started during her last hospitalization here at [facility] in February of 2024. During that hospital stay, there was concern that this pain was related to sickle cell crisis although imaging at that time did demonstrate evidence of possible inflammation /infection in her left shoulder. Her February 2024 hospitalization was complicated by MRSA bacteremia and she was subsequently transferred to the [facility] for further evaluation and treatment. Unfortunately, I am unclear if the issues/ concerns with her left shoulder at that time in February 2020 for fully addressed during her hospitalization at [facility]. As the pain in her left shoulder has been progressively getting worse and worse, her nursing facility center to the emergency room for further assessment. Workup and evaluation emergency room demonstrated the patient be hemodynamically stable but in moderate distress secondary to pain in her left shoulder. Subsequent imaging studies include an x-ray of her left shoulderwhich was essentially negative but a CT scan of her left shoulder demonstrated large complex left subacromial/subdeltoid and sub coracoid
[2024-05-16 11:24] LABS: Erythrocyte Sedimentation Rate 113 mm/hr (0-20)
[2024-05-16] MEDS: VANCOMYCIN 750 MG/NS 250 ML 750 MG/250 ML BAG 250 MG IVPB (12:28)
[2024-05-16 12:29] LABS: Hemoglobin A1C 5.9 % (<5.7)
[2024-05-16] MEDS: HEPARIN SODIUM 1,000 UNITS/ML VIAL 5000 UNITS (13:33)
[2024-05-16] MEDS: HYDROcodone/acetaminophen (*CRX) 10-325 MG TABLET 1 TAB PO ×2 (14:09→18:42)
[2024-05-16] MEDS: carvediloL 12.5 MG TABLET PO ×2 (14:15→21:19)
[2024-05-16] MEDS: CEFEPIME 1 GM/NS 50 ML 1 GM/50 ML BAG IVPB (14:15)
[2024-05-16] MEDS: GABAPENTIN 100 MG CAPSULE PO ×2 (14:15→17:45)
[2024-05-16 16:38] LABS: Glucose Point of Care 226 mg/dl (65-105)
[2024-05-16] MEDS: INSULIN ASPART (*BKC) 100 UNITS/ML SUB-Q (17:47)
[2024-05-16 19:25] LABS: Glucose Point of Care 160 mg/dl (65-105)
[2024-05-16] MEDS: CYCLOBENZAPRINE HCL 10 MG TABLET PO (21:20)
[2024-05-16] MEDS: HYDROcodone/acetaminophen (*CRX) 5-325 MG TABLET 1 TAB PO (21:20)
[2024-05-16 23:02] LABS: MRSA (PCR) NOT DETECTED (NOT DETECTE)
[2024-05-17] VITALS (15 sets, daily range): BP systolic 118–155; BP diastolic 74–83; PULSE 88–99; RESP 16–18; TEMP 36.3–37.1; O2SAT 94–98
[2024-05-17] MEDS: HYDROmorphone HCL INJ (*CRX) 1 MG/ML SYR 0.5 MG IV PUSH ×5 (00:11→22:08)
[2024-05-17 05:40] LABS: Estimated CRCL calculation 27 ml/min; Estimated Glomerular Filt Rate 19
[2024-05-17 05:44] LABS: Vancomycin Random 16.2 ug/mL (10-20)
[2024-05-17 06:37] LABS: Glucose Point of Care 165 mg/dl (65-105)
[2024-05-17 07:29] LABS: Anion Gap 7 mmol/L (4-12); Blood Urea Nitrogen 21 mg/dL (7-17); Calcium 7.9 mg/dL (8.4-10.2); Carbon Dioxide 28 mmol/L (22-30); Chloride 101 mmol/L (98-107); Estimated CRCL calculation 27 ml/min; Estimated Glomerular Filt Rate 19; Glucose 169 mg/dL (65-110); Potassium 5.1 mmol/L (3.4-5.0); Sodium 136 mmol/L (137-145)
[2024-05-17] MEDS: FUROSEMIDE 40 MG TABLET PO (08:30)
--- NOTE | 2024-05-17 08:56 | P.PNIM_ITS ---
Progress Note: A&P Assessment and Plan (1) Osteomyelitis of shoulder, left: Code(s): M86.9 - Osteomyelitis, unspecified Status: Acute (2) Septic arthritis: Code(s): M00.9 - Pyogenic arthritis, unspecified Status: Acute (3) End stage renal disease: Code(s): N18.6 - End stage renal disease Status: Chronic (4) CHF (congestive heart failure): Qualifiers: Heart failure chronicity: acute on chronic Heart failure type: unspecified Qualified Code(s): I50.9 - Heart failure, unspecified Code(s): I50.9 - Heart failure, unspecified Status: Chronic (5) Hypertension: Code(s): I10 - Essential (primary) hypertension Status: Chronic (6) Blind in both eyes: Onset Date: ~03/2023 Code(s): H54.3 - Unqualified visual loss, both eyes Status: Chronic (7) Diabetes mellitus: Code(s): E11.9 - Type 2 diabetes mellitus without complications Status: Chronic Plan H&P on 05/16 via Bernice Lee APRN This is a 33-year-old female with significant past medical history of anemia secondary to end-stage renal disease, blindness in both eyes, CHF, chronic heel ulcer, diabetes mellitus, diabetic neuropathy, diastolic heart failure, hypertension, hyperlipidemia, nephrotic syndrome, possible sickle cell disease currently getting workup, left BKA who presented to hospital from [facility] with chief complaint of left shoulder pain and swelling. Patient states that the pain and swelling started during her last admission which was back in February of this year. She stated that they thought the pain in her shoulder was due to sickle cell disease and was worked up for that. Her sickle cell screen was positive on 02/16/2024, absolute Retic count was 0.11 on 02/22/2024. Hematology and Oncology was consulted last admission and stated in his note that she had a family history of 2 cousins with sickle cell disease and trait but has never been diagnosed herself. Oncology felt like she was in a sickle cell crisis at the time. Her hospital stay in February was also complicated with MRSA Bacteremia. [facility]. Patient denies any fever, chills, nausea, vomiting, diarrhea, abdominal pain, chest pain, shortness of breath Patient endorses 10/10 pain to her left shoulder. Workup in the hospital included a shoulder x-ray which was essentially negative. A shoulder CT was also performed and showed large complex left subacromial/subdeltoid and subcoracoid bursal fluid collection it is with associated osteolysis at the coracoid process and undersurface of the acromion consistent with septic bursitis and associated osteomyelitis both of which progressed since imaging on 02/22/2024. Chest x-ray showed subtle chronic interstitial lung disease scattered throughout the left lung. Initial labs showed a white blood cell count of 11.6, hemoglobin 10.0, potassium 5.2, creatinine 4.6, EGFR 13, blood sugars ranging 135-170, ALT 45, alk-phos 171, albumin 3.3. Hepatitis panel was also done and shown a negative hepatitis B antigen and positive antibody. Blood cultures were obtained and are pending. Last echo on 02/19/2024 was reviewed and showed normal LV systolic function with an estimated EF of 60-65%, grade 1 diastolic dysfunction. Patient was started on cefepime and vancomycin while in the ED. she also received dilaudid, Lokelma, sodium bicarb, albuterol, and Lasix. Patient was put on the [facility] transfer list and was accepted by Dr. Lucia while in ER. She was admitted here for dialysis. May 17 update: Patient is hemodynamically stable. Dialysis completed on admission 05/16. Continue dialysis electrolyte management per
[2024-05-17] MEDS: carvediloL 12.5 MG TABLET PO ×2 (09:02→22:09)
[2024-05-17] MEDS: SENNA/DOCUSATE SODIUM TABLET 1 TAB PO (09:02)
[2024-05-17] MEDS: lisinopriL 20 MG TABLET PO (09:02)
[2024-05-17] MEDS: GABAPENTIN 100 MG CAPSULE PO ×3 (09:02→16:44)
[2024-05-17] MEDS: VITAMIN B CMPLX/VIT C/FOLIC AC 1 CAPSULE 1 CAP PO (09:02)
[2024-05-17] MEDS: amLODIPine BESYLATE 10 MG TABLET PO (11:57)
[2024-05-17] MEDS: HEPARIN SODIUM 5,000 UNITS/ML VIAL 5000 UNITS SUB-Q ×2 (11:58→22:10)
[2024-05-17 12:07] LABS: Glucose Point of Care 271 mg/dl (65-105)
[2024-05-17] MEDS: VANCOMYCIN 1,000 MG/NS 250 ML 1,000 MG/250 ML BAG 250 MG IVPB (12:39)
[2024-05-17] MEDS: INSULIN ASPART (*BKC) 100 UNITS/ML SUB-Q (12:39)
[2024-05-17] MEDS: HYDROcodone/acetaminophen (*CRX) 10-325 MG TABLET 1 TAB PO (12:47)
[2024-05-17 16:01] LABS: Glucose Point of Care 148 mg/dl (65-105)
[2024-05-17] MEDS: CEFEPIME 1 GM/NS 50 ML 1 GM/50 ML BAG IVPB (16:10)
--- NOTE | 2024-05-17 16:16 | PM.PNNEP ---
Progress Note: A&P Assessment and Plan (1) End stage renal disease: Code(s): N18.6 - End stage renal disease Status: Chronic Assessment and Plan: HD tomorrow resume //Friday dialysis schedule tomorrow follow electrolytes, volume status, and clearance (2) Hyperkalemia: Code(s): E87.5 - Hyperkalemia Status: Acute Assessment and Plan: resolved as noted on admission s/p medical management further stabilization with dialysis yesterday follow trend of K+ (3) Septic arthritis: Code(s): M00.9 - Pyogenic arthritis, unspecified Status: Acute Assessment and Plan: as noted by admission imaging: X-ray of left shoulder negative CT of left shoulder with large complex left subacromial/subdeltoid and subcoracoid bursal fluid collection measuring 10.7 cm x 6.5 cm with associated osteolysis at the coracoid process and undersurface of the acromion consistent with septic bursitis and associated osteomyelitis both of which have progressed since 02/22/2024 on broad spectrum antibiotics pain control follow culture data tentative plan is for eventual transfer to [facility] for further therapy (4) Osteomyelitis of shoulder, left: Code(s): M86.9 - Osteomyelitis, unspecified Status: Acute Assessment and Plan: see #3 (5) Hypertension: Code(s): I10 - Essential (primary) hypertension Status: Chronic Assessment and Plan: elevated on admission suspect pain playing a role resume home medications dialysis may help to some degree follow trend of hemodynamics (6) Anemia: Code(s): D64.9 - Anemia, unspecified Status: Chronic Assessment and Plan: due to ESRD and acute illness Epogen with HD follow H/H (7) Diabetes mellitus: Code(s): E11.9 - Type 2 diabetes mellitus without complications Status: Chronic Assessment and Plan: follow accu-cheks glycemic control per hospitalists Will continue to follow. Subjective Date/time seen: 05/17/24 11:00 Interval history: Follow-up for end stage renal disease on hemodialysis. Tolerated dialysis treatment yesterday without any issues or problems; still with left arm arm pain but seems controlled with current medications; no other acute complaints voiced; remains on waiting list for transer to [facility]; no other issues/events overnight. Exam Narrative: General: large female in NAD Heart: normal S1 and S2; no rub Lungs: decreased breath sounds at bases Abdomen: obese but soft, nontender, nondistended, positive bowel sounds Extremities: no cyanosis or clubbing; s/p left AKA Skin: warm amd dry Objective Data Vital Signs Vital Signs: Vital Signs Temp Pulse Resp BP Pulse Ox O2 Del Method 05/17/24 10:00 93 05/17/24 08:00 Room Air 05/17/24 08:00 97 05/17/24 09:02 97 05/17/24 07:16 98.8 F 90 16 127/75 94 05/17/24 06:00 92 05/17/24 04:00 95 05/17/24 04:00 95 18 96 Room Air 05/17/24 04:17 97.7 F 95 18 155/83 H 96 05/17/24 02:00 91 05/17/24 00:00 99 16 94 Room Air 05/17/24 00:00 95 05/16/24 23:27 97.7 F 99 16 124/68 94 05/16/24 22:00 95 05/16/24 20:00 91 05/16/24 20:00 92 16 94 Room Air 05/16/24 21:19 95 05/16/24 18:00 94 Intake/Output Intake/Output: Intake & Output 05/14/24 05/15/24 05/16/24 05/17/24 23:59 23:59 23:59 23:59 Intake Total 550 690 520 Output Total 2733 500 Balance 550 -2043 20 Meds/Results Medications: Active Medications Generic Name Dose Route Start Last Admin Trade Name Isaiah PRN Reason Stop Dose Admin Acetaminophen 650 mg 05/16/24 02:37 Acetaminophen 325 Mg Tablet PO Q4H PRN Mild Pain (1-3) or Fever Hydrocodone Bitart/Acetaminophen 1 tab 05/16/24 13:24 05/16/24 21:20 Hydrocodone/Acetaminophen (*Crx) 5-325 Mg Ta
--- NOTE | 2024-05-17 16:16 | P.PNNP_ITS ---
Progress Note: A&P Assessment and Plan (1) End stage renal disease: Code(s): N18.6 - End stage renal disease Status: Chronic Assessment and Plan: * HD tomorrow * resume //Friday dialysis schedule tomorrow * follow electrolytes, volume status, and clearance (2) Hyperkalemia: Code(s): E87.5 - Hyperkalemia Status: Acute Assessment and Plan: * resolved * as noted on admission * s/p medical management * further stabilization with dialysis yesterday * follow trend of K+ (3) Septic arthritis: Code(s): M00.9 - Pyogenic arthritis, unspecified Status: Acute Assessment and Plan: * as noted by admission imaging: * X-ray of left shoulder negative * CT of left shoulder with large complex left subacromial/subdeltoid and subcoracoid bursal fluid collection measuring 10.7 cm x 6.5 cm with associated osteolysis at the coracoid process and undersurface of the acromion consistent with septic bursitis and associated osteomyelitis both of which have progressed since 02/22/2024 * on broad spectrum antibiotics * pain control * follow culture data * tentative plan is for eventual transfer to [facility] for further therapy (4) Osteomyelitis of shoulder, left: Code(s): M86.9 - Osteomyelitis, unspecified Status: Acute Assessment and Plan: * see #3 (5) Hypertension: Code(s): I10 - Essential (primary) hypertension Status: Chronic Assessment and Plan: * elevated on admission * suspect pain playing a role * resume home medications * dialysis may help to some degree * follow trend of hemodynamics (6) Anemia: Code(s): D64.9 - Anemia, unspecified Status: Chronic Assessment and Plan: * due to ESRD and acute illness * Epogen with HD * follow H/H (7) Diabetes mellitus: Code(s): E11.9 - Type 2 diabetes mellitus without complications Status: Chronic Assessment and Plan: * follow accu-cheks * glycemic control per hospitalists Will continue to follow. Subjective Date/time seen: 05/17/24 11:00 Interval history: Follow-up for end stage renal disease on hemodialysis. Tolerated dialysis treatment yesterday without any issues or problems; still with left arm arm pain but seems controlled with current medications; no other acute complaints voiced; remains on waiting list for transer to [facility]; no other issues/events overnight. Exam Narrative: General: large female in NAD Heart: normal S1 and S2; no rub Lungs: decreased breath sounds at bases Abdomen: obese but soft, nontender, nondistended, positive bowel sounds Extremities: no cyanosis or clubbing; s/p left AKA Skin: warm amd dry Objective Data Vital Signs Vital Signs: Vital Signs Temp Pulse Resp BP Pulse Ox O2 Del Method 05/17/24 10:00 93 05/17/24 08:00 Room Air 05/17/24 08:00 97 05/17/24 09:02 97 05/17/24 07:16 98.8 F 90 16 127/75 94 05/17/24 06:00 92 05/17/24 04:00 95 05/17/24 04:00 95 18 96 Room Air 05/17/24 04:17 97.7 F 95 18 155/83 H 96 05/17/24 02:00 91 05/17/24 00:00 99 16 94 Room Air 05/17/24 00:00 95 05/16/24 23:27 97.7 F 99 16 124/68 94
--- NOTE | 2024-05-17 18:24 | PC.NURSE ---
Informed patient had arrived on unit at 1820. Upon arriving in patients room at 1822 patient was sleeping. Call light within reach. Patient under blankets all the way up to her neck. Styrofoam container with what I presume to be her dinner is closed and sitting on her bedside try. All her belongings are in bed with her or on the bedside tray. No PO medications due no IV medications or fluids running.
[2024-05-17 22:23] LABS: Glucose Point of Care 191 mg/dl (65-105)
[2024-05-18] VITALS (22 sets, daily range): BP systolic 110–160; BP diastolic 72–95; PULSE 90–101; RESP 16–18; TEMP 35.9–37.6; O2SAT 96–99
--- NOTE | 2024-05-18 03:25 | ECG_ITS ---
Test Date: 2024-05-18 03:42:17 Measurements Intervals [place] Rate: 92 P: 47 VT: 171 QRS: -23 QRSD: 90 T: 7 QT: 374 QTc: 464 Interpretive Statements SINUS RHYTHM POSSIBLE LEFT ATRIAL ENLARGEMENT DELAYED PRECORDIAL R/S TRANSITION POSSIBLE LEFT VENTRICULAR HYPERTROPHY BASELINE ARTIFACT- V6 BORDERLINE ECG Compared to ECG 05/16/2024 05:53:25 HEART RATE HAS DECREASED Electronically Signed On 05-18-2024 06:45:25 CDT by Azar Cook D.O.
[2024-05-18] MEDS: MORPHINE SULFATE (*CRX) 2 MG/ML INJ 1 MG IV PUSH (03:37)
--- NOTE | 2024-05-18 03:39 | PC.NURSE ---
Pt called asking for pain med. Pt stated pain was a 10/10. When asked pt stated that the pain was radiating down her left arm and seem to originate in the left upper chest. Pt further stated that the pain also seem to come from/spread to between her shoulder blades. Pt stated that this pain and its characteristics has been occuring and worsening over the last [address] Schwarz was called and made aware of the situation who gave the following orders which were entered STAT: troponins, 12 lead EKG, chest x-ray, and 1mg IV push morphine.
[2024-05-18 04:02] LABS: Troponin I < 0.012 ng/mL (0.000-0.034)
[2024-05-18 04:11] LABS: Alanine Aminotransferase 37 U/L (6-35); Albumin Level 3.1 g/dL (3.5-5.1); Alkaline Phosphatase 179 U/L (38-126); Anion Gap 9 mmol/L (4-12); Aspartate Amino Transferase 35 U/L (14-36); Bilirubin,Total 0.5 mg/dL (0.2-1.3); Blood Urea Nitrogen 27 mg/dL (7-17); Calcium 7.9 mg/dL (8.4-10.2); Carbon Dioxide 24 mmol/L (22-30); Chloride 104 mmol/L (98-107); Estimated CRCL calculation 21 ml/min; Estimated Glomerular Filt Rate 15; Glucose 238 mg/dL (65-110); Potassium 4.8 mmol/L (3.4-5.0); Sodium 137 mmol/L (137-145)
[2024-05-18 06:11] LABS: Basophils Percent Auto 0.3 % (0.2-1.2); Eosinophils Absolute Auto 0.8 K/mm3 (0-0.3); Eosinophils Percent Auto 9.3 % (0-4.4); Hematocrit 31.2 % (37.0-47.0); Hemoglobin 9.1 g/dL (12.0-15.0); Immature Granulocyte Absolute 0.03 K/mm3 (0.00-0.031); Immature Granulocyte Percent A 0.3 % (0-0.5); Lymphocytes Absolute Auto 1.49 K/mm3 (0.9-3.2); Lymphocytes Percent Auto 17.2 % (18.3-44.2); Mean Corpuscular HGB Conc 29.2 g/dl (32-36); Mean Corpuscular Hemoglobin 29.6 pg (26-34); Mean Corpuscular Volume 101.6 fl (80-100); Mean Platelet Volume 9.1 fl (7.4-10.4); Monocytes Percent Auto 11.1 % (2.6-8.5); Neutrophils Absolute Auto 5.4 K/mm3 (1.3-6.7); Neutrophils Percent Auto 61.8 % (45.5-73.1); Platelet Count Result 412 k/mm3 (150-375); Red Blood Count 3.07 M/mm3 (4.2-5.4); Red Cell Distribution Width 14.9 % (11.5-14.5); White Blood Count 8.7 K/mm3 (4.5-10.0)
[2024-05-18 06:26] LABS: Alanine Aminotransferase 35 U/L (6-35); Albumin Level 2.9 g/dL (3.5-5.1); Alkaline Phosphatase 167 U/L (38-126); Anion Gap 8 mmol/L (4-12); Aspartate Amino Transferase 34 U/L (14-36); Bilirubin,Total 0.4 mg/dL (0.2-1.3); Blood Urea Nitrogen 27 mg/dL (7-17); Carbon Dioxide 24 mmol/L (22-30); Chloride 103 mmol/L (98-107); Estimated CRCL calculation 21 ml/min; Estimated Glomerular Filt Rate 14; Glucose 244 mg/dL (65-110); Magnesium 1.9 mg/dL (1.6-2.3); Phosphorus 5.5 mg/dL (2.5-4.5); Potassium 4.8 mmol/L (3.4-5.0); Sodium 135 mmol/L (137-145)
[2024-05-18 06:35] LABS: Anisocytosis 1+; Hypochromasia 1+; Macrocytosis 1+ (NORMAL); Platelet Estimate Adequate (Adequate); Schistocytes None Seen
[2024-05-18 06:40] LABS: Vancomycin Random 21.1 ug/mL (10-20)
[2024-05-18] MEDS: HYDROcodone/acetaminophen (*CRX) 10-325 MG TABLET 1 TAB PO (07:54)
[2024-05-18 07:57] LABS: Glucose Point of Care 239 mg/dl (65-105)
[2024-05-18] MEDS: INSULIN ASPART (*BKC) 100 UNITS/ML SUB-Q ×2 (08:30→16:53)
[2024-05-18] MEDS: HYDROmorphone HCL INJ (*CRX) 1 MG/ML SYR 0.5 MG IV PUSH ×3 (09:05→21:34)
--- NOTE | 2024-05-18 10:42 | PM.PNNEP ---
Progress Note: A&P Assessment and Plan (1) End stage renal disease: Code(s): N18.6 - End stage renal disease Status: Chronic Assessment and Plan: HD today continue //Friday dialysis schedule while hospitalized follow electrolytes, volume status, and clearance (2) Hyperkalemia: Code(s): E87.5 - Hyperkalemia Status: Acute Assessment and Plan: resolved as noted on admission s/p medical management further stabilization with dialysis treatments follow trend of K+ (3) Septic arthritis: Code(s): M00.9 - Pyogenic arthritis, unspecified Status: Acute Assessment and Plan: as noted by admission imaging: X-ray of left shoulder negative CT of left shoulder with large complex left subacromial/subdeltoid and subcoracoid bursal fluid collection measuring 10.7 cm x 6.5 cm with associated osteolysis at the coracoid process and undersurface of the acromion consistent with septic bursitis and associated osteomyelitis both of which have progressed since 02/22/2024 on broad spectrum antibiotics pain control follow culture data (negative so far) tentative plan is for eventual transfer [facility] ([facility] another hospital) for further therapy (4) Osteomyelitis of shoulder, left: Code(s): M86.9 - Osteomyelitis, unspecified Status: Acute Assessment and Plan: see #3 (5) Hypertension: Code(s): I10 - Essential (primary) hypertension Status: Chronic Assessment and Plan: elevated on admission suspect pain playing a role resume home medications dialysis may help to some degree follow trend of hemodynamics (6) Anemia: Code(s): D64.9 - Anemia, unspecified Status: Chronic Assessment and Plan: due to ESRD and acute illness Epogen with HD follow H/H (7) Diabetes mellitus: Code(s): E11.9 - Type 2 diabetes mellitus without complications Status: Chronic Assessment and Plan: follow accu-cheks glycemic control per hospitalists Will continue to follow. Subjective Date/time seen: 05/18/24 10:42 Interval history: Follow-up for end stage renal disease on hemodialysis. Tolerating dialysis treatment at the time of my visit (seen on HD at 10:32AM); still with pain in her left arm/shoulder but appears controlled with current pain medication regimen; no issues/events overnight or earlier this morning. Exam Narrative: General: large female in NAD Heart: normal S1 and S2; no rub Lungs: decreased breath sounds at bases Abdomen: obese but soft, nontender, nondistended, positive bowel sounds Extremities: no cyanosis or clubbing; s/p left AKA Skin: No rash Objective Data Vital Signs Vital Signs: Vital Signs Temp Pulse Resp BP Pulse Ox O2 Del Method 05/18/24 08:00 96 Room Air 05/18/24 09:04 160/80 H 05/17/24 21:55 Room Air 05/17/24 22:09 90 05/17/24 21:53 97.4 F L 90 18 129/81 96 05/17/24 16:00 88 05/17/24 14:00 89 05/17/24 15:40 98.0 F 93 16 118/74 98 Intake/Output Intake/Output: Intake & Output 05/15/24 05/16/24 05/17/24 05/18/24 23:59 23:59 23:59 23:59 Intake Total 550 690 520 470 Output Total 2733 500 100 Balance 550 -2043 20 370 Meds/Results Medications: Active Medications Generic Name Dose Route Start Last Admin Trade Name Freq PRN Reason Stop Dose Admin Acetaminophen 650 mg 05/16/24 02:37 Acetaminophen 325 Mg Tablet PO Q4H PRN Mild Pain (1-3) or Fever Hydrocodone Bitart/Acetaminophen 1 tab 05/16/24 13:24 05/16/24 21:20 Hydrocodone/Acetaminophen (*Crx) 5-325 Mg Tablet PO 1 tab Q4H PRN Administration Pain Rated 4-6 Hydrocodone Bitart/Acetaminophen 1 tab 05/16/24 13:24 05/18/24 07:54 Hydrocodone/Acetaminophen (*Crx) 10-325 Mg Tablet PO 1 tab Q4H PRN Administration Pain Rated 7-10 Amlodipine Besylate 10 mg 0
--- NOTE | 2024-05-18 10:42 | P.PNNP_ITS ---
Progress Note: A&P Assessment and Plan (1) End stage renal disease: Code(s): N18.6 - End stage renal disease Status: Chronic Assessment and Plan: * HD today * continue //Friday dialysis schedule while hospitalized * follow electrolytes, volume status, and clearance (2) Hyperkalemia: Code(s): E87.5 - Hyperkalemia Status: Acute Assessment and Plan: * resolved * as noted on admission * s/p medical management * further stabilization with dialysis treatments * follow trend of K+ (3) Septic arthritis: Code(s): M00.9 - Pyogenic arthritis, unspecified Status: Acute Assessment and Plan: * as noted by admission imaging: * X-ray of left shoulder negative * CT of left shoulder with large complex left subacromial/subdeltoid and subcoracoid bursal fluid collection measuring 10.7 cm x 6.5 cm with associated osteolysis at the coracoid process and undersurface of the acromion consistent with septic bursitis and associated osteomyelitis both of which have progressed since 02/22/2024 * on broad spectrum antibiotics * pain control * follow culture data (negative so far) * tentative plan is for eventual transfer to [facility] (versus another hospital) for further therapy (4) Osteomyelitis of shoulder, left: Code(s): M86.9 - Osteomyelitis, unspecified Status: Acute Assessment and Plan: * see #3 (5) Hypertension: Code(s): I10 - Essential (primary) hypertension Status: Chronic Assessment and Plan: * elevated on admission * suspect pain playing a role * resume home medications * dialysis may help to some degree * follow trend of hemodynamics (6) Anemia: Code(s): D64.9 - Anemia, unspecified Status: Chronic Assessment and Plan: * due to ESRD and acute illness * Epogen with HD * follow H/H (7) Diabetes mellitus: Code(s): E11.9 - Type 2 diabetes mellitus without complications Status: Chronic Assessment and Plan: * follow accu-cheks * glycemic control per hospitalists Will continue to follow. Subjective Date/time seen: 05/18/24 10:42 Interval history: Follow-up for end stage renal disease on hemodialysis. Tolerating dialysis treatment at the time of my visit (seen on HD at 10:32AM); still with pain in her left arm/shoulder but appears controlled with current pain medication regimen; no issues/events overnight or earlier this morning. Exam Narrative: General: large female in NAD Heart: normal S1 and S2; no rub Lungs: decreased breath sounds at bases Abdomen: obese but soft, nontender, nondistended, positive bowel sounds Extremities: no cyanosis or clubbing; s/p left AKA Skin: No rash Objective Data Vital Signs Vital Signs: Vital Signs Temp Pulse Resp BP Pulse Ox O2 Del Method 05/18/24 08:00 96 Room Air 05/18/24 09:04 160/80 H 05/17/24 21:55 Room Air 05/17/24 22:09 90 05/17/24 21:53 97.4 F L 90 18 129/81 96 05/17/24 16:00 88 05/17/24 14:00 89 05/17/24 15:40 98.0 F 93 16 118/74 98 Intake/Output Intake/Output: Intake & Output 05/15/24 05/16/24 05/17/24 05/18/24 23:59 23:59 23:5
[2024-05-18] MEDS: EPOETIN ALFA-EPBX 10,000 UNITS/ML VIAL 10000 UNITS IV PUSH (11:55)
[2024-05-18] MEDS: HEPARIN SODIUM 1,000 UNITS/ML VIAL 5000 UNITS (11:56)
[2024-05-18] MEDS: SODIUM CHLORIDE 0.9% IV 1,000 ML 999 ML IV CONT (11:57)
[2024-05-18] MEDS: lisinopriL 20 MG TABLET PO (13:32)
[2024-05-18] MEDS: amLODIPine BESYLATE 10 MG TABLET PO (13:32)
[2024-05-18] MEDS: GABAPENTIN 100 MG CAPSULE PO ×2 (13:33→16:22)
[2024-05-18] MEDS: VITAMIN B CMPLX/VIT C/FOLIC AC 1 CAPSULE 1 CAP PO (13:33)
[2024-05-18 13:35] LABS: Glucose Point of Care 147 mg/dl (65-105)
[2024-05-18] MEDS: CEFEPIME 1 GM/NS 50 ML 1 GM/50 ML BAG IVPB (13:42)
[2024-05-18] MEDS: VANCOMYCIN 750 MG/NS 250 ML 750 MG/250 ML BAG 250 MG IVPB (14:17)
[2024-05-18 16:28] LABS: Glucose Point of Care 235 mg/dl (65-105)
[2024-05-18 21:06] LABS: Glucose Point of Care 131 mg/dl (65-105)
[2024-05-18] MEDS: carvediloL 12.5 MG TABLET PO (21:31)
[2024-05-18] MEDS: HEPARIN SODIUM 5,000 UNITS/ML VIAL 5000 UNITS SUB-Q (21:31)
[2024-05-19] MEDS: HYDROmorphone HCL INJ (*CRX) 1 MG/ML SYR 0.5 MG IV PUSH ×4 (04:00→22:56)
[2024-05-19 05:50] LABS: Basophils Percent Auto 0.5 % (0.2-1.2); Eosinophils Absolute Auto 0.9 K/mm3 (0-0.3); Eosinophils Percent Auto 11.5 % (0-4.4); Hematocrit 33.4 % (37.0-47.0); Hemoglobin 9.9 g/dL (12.0-15.0); Immature Granulocyte Absolute 0.03 K/mm3 (0.00-0.031); Immature Granulocyte Percent A 0.4 % (0-0.5); Lymphocytes Absolute Auto 1.46 K/mm3 (0.9-3.2); Lymphocytes Percent Auto 17.9 % (18.3-44.2); Mean Corpuscular HGB Conc 29.6 g/dl (32-36); Mean Corpuscular Hemoglobin 29.8 pg (26-34); Mean Corpuscular Volume 100.6 fl (80-100); Mean Platelet Volume 9.1 fl (7.4-10.4); Monocytes Absolute Auto 0.7 K/mm3 (0.1-0.6); Monocytes Percent Auto 9.1 % (2.6-8.5); Neutrophils Absolute Auto 4.9 K/mm3 (1.3-6.7); Neutrophils Percent Auto 60.6 % (45.5-73.1); Platelet Count Result 372 k/mm3 (150-375); Red Blood Count 3.32 M/mm3 (4.2-5.4); Red Cell Distribution Width 14.6 % (11.5-14.5); White Blood Count 8.1 K/mm3 (4.5-10.0)
[2024-05-19 06:00] LABS: Alanine Aminotransferase 47 U/L (6-35); Alkaline Phosphatase 170 U/L (38-126); Anion Gap 8 mmol/L (4-12); Aspartate Amino Transferase 39 U/L (14-36); Bilirubin,Total 0.3 mg/dL (0.2-1.3); Blood Urea Nitrogen 20 mg/dL (7-17); Carbon Dioxide 28 mmol/L (22-30); Chloride 100 mmol/L (98-107); Estimated CRCL calculation 30 ml/min; Estimated Glomerular Filt Rate 21; Glucose 342 mg/dL (65-110); Magnesium 1.8 mg/dL (1.6-2.3); Potassium 4.1 mmol/L (3.4-5.0); Sodium 136 mmol/L (137-145)
[2024-05-19] MEDS: HYDROcodone/acetaminophen (*CRX) 10-325 MG TABLET 1 TAB PO (07:18)
[2024-05-19 07:30] VITALS: BP 143/80
[2024-05-19 07:49] LABS: Glucose Point of Care 282 mg/dl (65-105)
[2024-05-19 08:00] VITALS: O2SAT 99
[2024-05-19] MEDS: INSULIN ASPART (*BKC) 100 UNITS/ML SUB-Q ×2 (08:16→17:12)
[2024-05-19] MEDS: amLODIPine BESYLATE 10 MG TABLET PO (08:19)
[2024-05-19] MEDS: lisinopriL 20 MG TABLET PO (08:19)
[2024-05-19 08:20] VITALS: PULSE 80
[2024-05-19] MEDS: GABAPENTIN 100 MG CAPSULE PO ×3 (08:20→17:11)
[2024-05-19] MEDS: VITAMIN B CMPLX/VIT C/FOLIC AC 1 CAPSULE 1 CAP PO (08:20)
[2024-05-19] MEDS: carvediloL 12.5 MG TABLET PO ×2 (08:20→19:36)
[2024-05-19] MEDS: HEPARIN SODIUM 5,000 UNITS/ML VIAL 5000 UNITS SUB-Q ×2 (08:21→19:36)
[2024-05-19] MEDS: FUROSEMIDE 40 MG TABLET PO (08:25)
[2024-05-19 11:44] LABS: Glucose Point of Care 199 mg/dl (65-105)
--- NOTE | 2024-05-19 13:10 | PM.PNNEP ---
Progress Note: A&P Assessment and Plan (1) End stage renal disease: Code(s): N18.6 - End stage renal disease Status: Chronic Assessment and Plan: HD tomorrow continue //Friday dialysis schedule while hospitalized follow electrolytes, volume status, and clearance (2) Hyperkalemia: Code(s): E87.5 - Hyperkalemia Status: Acute Assessment and Plan: resolved as noted on admission s/p medical management further stabilization with dialysis treatments follow trend of K+ (3) Septic arthritis: Code(s): M00.9 - Pyogenic arthritis, unspecified Status: Acute Assessment and Plan: as noted by admission imaging: X-ray of left shoulder negative CT of left shoulder with large complex left subacromial/subdeltoid and subcoracoid bursal fluid collection measuring 10.7 cm x 6.5 cm with associated osteolysis at the coracoid process and undersurface of the acromion consistent with septic bursitis and associated osteomyelitis both of which have progressed since 02/22/2024 on broad spectrum antibiotics pain control follow culture data (negative so far) tentative plan is for eventual transfer to [facility] (versus another hospital) for further therapy/intervention (4) Osteomyelitis of shoulder, left: Code(s): M86.9 - Osteomyelitis, unspecified Status: Acute Assessment and Plan: see #3 (5) Hypertension: Code(s): I10 - Essential (primary) hypertension Status: Chronic Assessment and Plan: elevated on admission suspect pain playing a role resume home medications dialysis may help to some degree follow trend of hemodynamics (6) Anemia: Code(s): D64.9 - Anemia, unspecified Status: Chronic Assessment and Plan: due to ESRD and acute illness Epogen with HD follow H/H (7) Diabetes mellitus: Code(s): E11.9 - Type 2 diabetes mellitus without complications Status: Chronic Assessment and Plan: follow accu-cheks glycemic control per hospitalists Will continue to follow. Subjective Date/time seen: 05/19/24 13:10 Interval history: Follow-up for end stage renal disease on hemodialysis. Tolerated dialysis treatment yesterday without any issues or problems; major complaint is that of continued left shoulder pain (although pain medications do help alleviate this issue); still awaiting potential transfer to [facility] at this time; was sleeping comfortably initially on my visit. Exam Narrative: General: large female in NAD Heart: normal S1 and S2; no rub Lungs: decreased breath sounds at bases Abdomen: obese but soft, nontender, nondistended, positive bowel sounds Extremities: no cyanosis or clubbing; s/p left AKA Skin: No nodules Objective Data Vital Signs Vital Signs: Vital Signs Temp Pulse Resp BP Pulse Ox O2 Del Method 05/19/24 12:00 97.0 F L 90 18 133/77 97 05/19/24 08:00 99 Room Air 05/19/24 08:20 80 05/19/24 07:30 143/80 H 05/18/24 22:26 99.3 F 97 18 142/86 H 99 05/18/24 21:31 94 Intake/Output Intake/Output: Intake & Output 05/16/24 05/17/24 05/18/24 05/19/24 23:59 23:59 23:59 23:59 Intake Total 690 570 520 540 Output Total 2733 500 3100 900 [id number] 70 -2580 -360 Meds/Results Medications: Active Medications Generic Name Dose Route Start Last Admin Trade Name Freq PRN Reason Stop Dose Admin Acetaminophen 650 mg 05/16/24 02:37 Acetaminophen 325 Mg Tablet PO Q4H PRN Mild Pain (1-3) or Fever Hydrocodone Bitart/Acetaminophen 1 tab 05/16/24 13:24 05/19/24 07:18 Hydrocodone/Acetaminophen (*Crx) 10-325 Mg Tablet PO 1 tab Q4H PRN Administration Pain Rated 4-6 Hydrocodone Bitart/Acetaminophen 1 tab 05/18/24 15:59 Hydrocodone/Acetaminophen (*Crx) 5-325 Mg Tablet PO Q4H PRN Pain Rated 1-3 Amlodipine Besylate 10 mg 05/17/24 09
--- NOTE | 2024-05-19 13:10 | P.PNNP_ITS ---
Progress Note: A&P Assessment and Plan (1) End stage renal disease: Code(s): N18.6 - End stage renal disease Status: Chronic Assessment and Plan: * HD tomorrow * continue //Friday dialysis schedule while hospitalized * follow electrolytes, volume status, and clearance (2) Hyperkalemia: Code(s): E87.5 - Hyperkalemia Status: Acute Assessment and Plan: * resolved * as noted on admission * s/p medical management * further stabilization with dialysis treatments * follow trend of K+ (3) Septic arthritis: Code(s): M00.9 - Pyogenic arthritis, unspecified Status: Acute Assessment and Plan: * as noted by admission imaging: * X-ray of left shoulder negative * CT of left shoulder with large complex left subacromial/subdeltoid and subcoracoid bursal fluid collection measuring 10.7 cm x 6.5 cm with assoc iated osteolysis at the coracoid process and undersurface of the acromion consistent with septic bursitis and associated osteomyelitis both of which have progressed since 02/22/2024 * on broad spectrum antibiotics * pain control * follow culture data (negative so far) * tentative plan is for eventual transfer to [facility] (versus another hospital) for further therapy/intervention (4) Osteomyelitis of shoulder, left: Code(s): M86.9 - Osteomyelitis, unspecified Status: Acute Assessment and Plan: * see #3 (5) Hypertension: Code(s): I10 - Essential (primary) hypertension Status: Chronic Assessment and Plan: * elevated on admission * suspect pain playing a role * resume home medications * dialysis may help to some degree * follow trend of hemodynamics (6) Anemia: Code(s): D64.9 - Anemia, unspecified Status: Chronic Assessment and Plan: * due to ESRD and acute illness * Epogen with HD * follow H/H (7) Diabetes mellitus: Code(s): E11.9 - Type 2 diabetes mellitus without complications Status: Chronic Assessment and Plan: * follow accu-cheks * glycemic control per hospitalists Will continue to follow. Subjective Date/time seen: 05/19/24 13:10 Interval history: Follow-up for end stage renal disease on hemodialysis. Tolerated dialysis treatment yesterday without any issues or problems; major complaint is that of continued left shoulder pain (although pain medications do help alleviate this issue); still awaiting potential transfer to [facility] at this time; was sleeping comfortably initially on my visit. Exam Narrative: General: large female in NAD Heart: normal S1 and S2; no rub Lungs: decreased breath sounds at bases Abdomen: obese but soft, nontender, nondistended, positive bowel sounds Extremities: no cyanosis or clubbing; s/p left AKA Skin: No nodules Objective Data Vital Signs Vital Signs: Vital Signs Temp Pulse Resp BP Pulse Ox O2 Del Method 05/19/24 12:00 97.0 F L 90 18 133/77 97 05/19/24 08:00 99 Room Air 05/19/24 08:20 80 05/19/24 07:30 143/80 H 05/18/24 22:26 99.3 F 97 18 142/86 H 99 05/18/24 21:31 94 Intake/Output Intake/Output: Intake & Output 05/16/24 05/17/24 05/18/24 05/19/24 23:59 23:59 23:5
[2024-05-19] MEDS: CEFEPIME 1 GM/NS 50 ML 1 GM/50 ML BAG IVPB (13:40)
[2024-05-19 14:00] VITALS: BP 133/77; PULSE 90; RESP 18; TEMP 36.1; O2SAT 97
--- NOTE | 2024-05-19 16:35 | PM.IMPN ---
Progress Note: A&P Assessment and Plan (1) Osteomyelitis of shoulder, left: Code(s): M86.9 - Osteomyelitis, unspecified Status: Acute (2) Septic arthritis: Code(s): M00.9 - Pyogenic arthritis, unspecified Status: Acute (3) End stage renal disease: Code(s): N18.6 - End stage renal disease Status: Chronic (4) CHF (congestive heart failure): Qualifiers: Heart failure chronicity: acute on chronic Heart failure type: unspecified Qualified Code(s): I50.9 - Heart failure, unspecified Code(s): I50.9 - Heart failure, unspecified Status: Chronic (5) Hypertension: Code(s): I10 - Essential (primary) hypertension Status: Chronic (6) Blind in both eyes: Onset Date: ~03/2023 Code(s): H54.3 - Unqualified visual loss, both eyes Status: Chronic (7) Diabetes mellitus: Code(s): E11.9 - Type 2 diabetes mellitus without complications Status: Chronic Plan H&P on 05/16 via Bernice Lee APRN This is a 33-year-old female with significant past medical history of anemia secondary to end-stage renal disease, blindness in both eyes, CHF, chronic heel ulcer, diabetes mellitus, diabetic neuropathy, diastolic heart failure, hypertension, hyperlipidemia, nephrotic syndrome, possible sickle cell disease currently getting workup, left BKA who presented to hospital from [facility] with chief complaint of left shoulder pain and swelling. Patient states that the pain and swelling started during her last admission which was back in February of this year. She stated that they thought the pain in her shoulder was due to sickle cell disease and was worked up for that. Her sickle cell screen was positive on 02/16/2024, absolute Retic count was 0.11 on 02/22/2024. Hematology and Oncology was consulted last admission and stated in his note that she had a family history of 2 cousins with sickle cell disease and trait but has never been diagnosed herself. Oncology felt like she was in a sickle cell crisis at the time. Her hospital stay in February was also complicated with MRSA Bacteremia. [facility] was [facility]. Patient denies any fever, chills, nausea, vomiting, diarrhea, abdominal pain, chest pain, shortness of breath Patient endorses 10/10 pain to her left shoulder. Workup in the hospital included a shoulder x-ray which was essentially negative. A shoulder CT was also performed and showed large complex left subacromial/subdeltoid and subcoracoid bursal fluid collection it is with associated osteolysis at the coracoid process and undersurface of the acromion consistent with septic bursitis and associated osteomyelitis both of which progressed since imaging on 02/22/2024. Chest x-ray showed subtle chronic interstitial lung disease scattered throughout the left lung. Initial labs showed a white blood cell count of 11.6, hemoglobin 10.0, potassium 5.2, creatinine 4.6, EGFR 13, blood sugars ranging 135-170, ALT 45, alk-phos 171, albumin 3.3. Hepatitis panel was also done and shown a negative hepatitis B antigen and positive antibody. Blood cultures were obtained and are pending. Last echo on 02/19/2024 was reviewed and showed normal LV systolic function with an estimated EF of 60-65%, grade 1 diastolic dysfunction. Patient was started on cefepime and vancomycin while in the ED. she also received dilaudid, Lokelma, sodium bicarb, albuterol, and Lasix. Patient was put on the [facility] transfer list and was accepted by Dr. Lucia while in ER. She was admitted here for dialysis. May 17 update: Patient is hemodynamically stable. Dialysis completed on admission 05/16. Continue dialysis electrolyte management per Nephrology. Hyperkalemia is greatly improved status post cocktail. Left arm pain is mostly controlled. Getting transferred to [facility] for osteomyelitis/septic arthritis. Continue cefepime and vancomycin. Records requested from [facility]. May 18 update: Continue t
[2024-05-19 16:39] LABS: Glucose Point of Care 340 mg/dl (65-105)
[2024-05-19 20:00] VITALS: PULSE 90; RESP 18; O2SAT 97
[2024-05-19 21:31] LABS: Glucose Point of Care 162 mg/dl (65-105)
[2024-05-19 22:04] VITALS: BP 137/77; PULSE 89; RESP 16; TEMP 37.2; O2SAT 97
[2024-05-19] MEDS: MELATONIN 3 MG TABLET PO (22:59)
[2024-05-20] VITALS (23 sets, daily range): BP systolic 133–183; BP diastolic 55–98; PULSE 82–94; RESP 16–20; TEMP 35.7–37; O2SAT 98–100
[2024-05-20] MEDS: HYDROmorphone HCL INJ (*CRX) 1 MG/ML SYR 0.5 MG IV PUSH ×4 (05:34→16:58)
[2024-05-20 05:47] LABS: Hematocrit 32.3 % (37.0-47.0); Hemoglobin 9.7 g/dL (12.0-15.0); Mean Corpuscular Hemoglobin 29.8 pg (26-34); Mean Corpuscular Volume 99.4 fl (80-100); Mean Platelet Volume 9.1 fl (7.4-10.4); Platelet Count Result 374 k/mm3 (150-375); Red Blood Count 3.25 M/mm3 (4.2-5.4); Red Cell Distribution Width 14.5 % (11.5-14.5); White Blood Count 9.3 K/mm3 (4.5-10.0)
[2024-05-20 05:56] LABS: Alanine Aminotransferase 55 U/L (6-35); Alkaline Phosphatase 176 U/L (38-126); Anion Gap 5 mmol/L (4-12); Aspartate Amino Transferase 42 U/L (14-36); Bilirubin,Total 0.2 mg/dL (0.2-1.3); Blood Urea Nitrogen 28 mg/dL (7-17); Calcium 8.3 mg/dL (8.4-10.2); Carbon Dioxide 31 mmol/L (22-30); Chloride 101 mmol/L (98-107); Estimated CRCL calculation 21 ml/min; Estimated Glomerular Filt Rate 14; Glucose 175 mg/dL (65-110); Potassium 4.7 mmol/L (3.4-5.0); Sodium 137 mmol/L (137-145)
[2024-05-20 06:05] LABS: Vancomycin Random 16.3 ug/mL (10-20)
[2024-05-20 07:34] LABS: Glucose Point of Care 128 mg/dl (65-105)
[2024-05-20] MEDS: GABAPENTIN 100 MG CAPSULE PO ×3 (08:36→16:59)
[2024-05-20] MEDS: lisinopriL 20 MG TABLET PO (08:36)
[2024-05-20] MEDS: HEPARIN SODIUM 5,000 UNITS/ML VIAL 5000 UNITS SUB-Q (08:36)
[2024-05-20] MEDS: carvediloL 12.5 MG TABLET PO ×2 (08:36→20:54)
[2024-05-20] MEDS: amLODIPine BESYLATE 10 MG TABLET PO (08:36)
[2024-05-20] MEDS: SENNA/DOCUSATE SODIUM TABLET 1 TAB PO (08:37)
[2024-05-20] MEDS: VITAMIN B CMPLX/VIT C/FOLIC AC 1 CAPSULE 1 CAP PO (08:37)
[2024-05-20] MEDS: EPOETIN ALFA-EPBX 10,000 UNITS/ML VIAL 10000 UNITS IV PUSH (11:33)
[2024-05-20 11:39] LABS: Glucose Point of Care 164 mg/dl (65-105)
--- NOTE | 2024-05-20 12:16 | PM.PNNEP ---
Progress Note: A&P Assessment and Plan (1) End stage renal disease: Code(s): N18.6 - End stage renal disease Status: Chronic Assessment and Plan: HD today continue //Friday dialysis schedule while hospitalized follow electrolytes, volume status, and clearance (2) Hyperkalemia: Code(s): E87.5 - Hyperkalemia Status: Acute Assessment and Plan: resolved as noted on admission s/p medical management further stabilization with dialysis treatments follow trend of K+ (3) Septic arthritis: Code(s): M00.9 - Pyogenic arthritis, unspecified Status: Acute Assessment and Plan: as noted by admission imaging: X-ray of left shoulder negative CT of left shoulder with large complex left subacromial/subdeltoid and subcoracoid bursal fluid collection measuring 10.7 cm x 6.5 cm with associated osteolysis at the coracoid process and undersurface of the acromion consistent with septic bursitis and associated osteomyelitis both of which have progressed since 02/22/2024 on broad spectrum antibiotics pain control follow culture data (negative so far) tentative plan is for eventual transfer to [facility] (versus another hospital) for further therapy/intervention (4) Osteomyelitis of shoulder, left: Code(s): M86.9 - Osteomyelitis, unspecified Status: Acute Assessment and Plan: see #3 (5) Hypertension: Code(s): I10 - Essential (primary) hypertension Status: Chronic Assessment and Plan: elevated on admission suspect pain playing a role resume home medications dialysis may help to some degree follow trend of hemodynamics (6) Anemia: Code(s): D64.9 - Anemia, unspecified Status: Chronic Assessment and Plan: due to ESRD and acute illness Epogen with HD follow H/H (7) Diabetes mellitus: Code(s): E11.9 - Type 2 diabetes mellitus without complications Status: Chronic Assessment and Plan: follow accu-cheks glycemic control per hospitalists Will continue to follow. Subjective Date/time seen: 05/20/24 12:16 Interval history: Follow-up for end stage renal disease on hemodialysis. Tolerating dialysis treatment at the time of my visit (seen on HD at 12:05PM); sleeping comfortably when seen; no apparent distress noted; pain control appears satisfactory; no new issues/events overnight or earlier this morning. Exam Narrative: General: large female in [facility]: normal S1 and S2; no rub Lungs: decreased breath sounds at bases Abdomen: obese but soft, nontender, nondistended, positive bowel sounds Extremities: no cyanosis or clubbing; s/p left AKA Skin: warm and dry Objective Data Vital Signs Vital Signs: Vital Signs Temp Pulse Resp BP Pulse Ox O2 Del Method FiO2 05/20/24 12:15 87 144/84 H 05/20/24 12:00 84 141/89 H 05/20/24 11:45 84 163/91 H 05/20/24 11:30 88 183/97 H 05/20/24 11:15 86 151/82 H 05/20/24 11:00 87 140/81 05/20/24 10:45 88 147/84 H 05/20/24 08:36 Room Air 05/20/24 10:30 86 143/83 H 05/20/24 10:15 87 153/89 H 05/20/24 10:00 89 133/85 05/20/24 09:45 87 164/88 H 05/20/24 09:30 89 157/81 H 05/20/24 09:15 86 171/97 H 05/20/24 09:06 85 168/94 H 05/20/24 08:54 98.3 F 85 18 163/91 H 05/20/24 08:36 82 05/20/24 05:38 98.1 F 82 18 140/84 100 05/19/24 22:04 99.0 F 89 16 137/77 97 05/19/24 20:00 90 18 97 Room Air 98 05/19/24 14:00 97.0 F L 90 18 133/77 97 Intake/Output Intake/Output: Intake & Output 05/17/24 05/18/24 05/19/24 05/20/24 23:59 23:59 23:59 23:59 Intake Total 570 520 540 540 Output Total 500 3100 1400 500 Balance 22 -4326 -429 40 Meds/Results Medications: Active Medications Generic Name Dose Route Start Last Admin Trade Name Freq P
--- NOTE | 2024-05-20 12:16 | P.PNNP_ITS ---
Progress Note: A&P Assessment and Plan (1) End stage renal disease: Code(s): N18.6 - End stage renal disease Status: Chronic Assessment and Plan: * HD today * continue //Friday dialysis schedule while hospitalized * follow electrolytes, volume status, and clearance (2) Hyperkalemia: Code(s): E87.5 - Hyperkalemia Status: Acute Assessment and Plan: * resolved * as noted on admission * s/p medical management * further stabilization with dialysis treatments * follow trend of K+ (3) Septic arthritis: Code(s): M00.9 - Pyogenic arthritis, unspecified Status: Acute Assessment and Plan: * as noted by admission imaging: * X-ray of left shoulder negative * CT of left shoulder with large complex left subacromial/subdeltoid and subcoracoid bursal fluid collection measuring 10.7 cm x 6.5 cm with associated osteolysis at the coracoid process and undersurface of the acromion consistent with septic bursitis and associated osteomyelitis both of which have progressed since 02/22/2024 * on broad spectrum antibiotics * pain control * follow culture data (negative so far) * tentative plan is for eventual transfer to [facility] (versus another hospital) for further therapy/intervention (4) Osteomyelitis of shoulder, left: Code(s): M86.9 - Osteomyelitis, unspecified Status: Acute Assessment and Plan: * see #3 (5) Hypertension: Code(s): I10 - Essential (primary) hypertension Status: Chronic Assessment and Plan: * elevated on admission * suspect pain playing a role * resume home medications * dialysis may help to some degree * follow trend of hemodynamics (6) Anemia: Code(s): D64.9 - Anemia, unspecified Status: Chronic Assessment and Plan: * due to ESRD and acute illness * Epogen with HD * follow H/H (7) Diabetes mellitus: Code(s): E11.9 - Type 2 diabetes mellitus without complications Status: Chronic Assessment and Plan: * follow accu-cheks * glycemic control per hospitalists Will continue to follow. Subjective Date/time seen: 05/20/24 12:16 Interval history: Follow-up for end stage renal disease on hemodialysis. Tolerating dialysis treatment at the time of my visit (seen on HD at 12:05PM); sleeping comfortably when seen; no apparent distress noted; pain control appears satisfactory; no new issues/events overnight or earlier this morning. Exam Narrative: General: large female in NAD Heart: normal S1 and S2; no rub Lungs: decreased breath sounds at bases Abdomen: obese but soft, nontender, nondistended, positive bowel sounds Extremities: no cyanosis or clubbing; s/p left AKA Skin: warm and dry Objective Data Vital Signs Vital Signs: Vital Signs Temp Pulse Resp BP Pulse Ox O2 Del Method FiO2 05/20/24 12:15 87 144/84 H 05/20/24 12:00 84 141/89 H 05/20/24 11:45 84 163/91 H 05/20/24 11:30 88 183/97 H 05/20/24 11:15 86 151/82 H 05/20/24 11:00 87 140/81 05/20/24 10:45 88 147/84 H 05/20/24 08:36 Room Air 05/20/24 10:30 86 143/83 H 05/20/24 10:15 87 153/89 H 05/20/24 10:00 89 133/85 05/20/24 09:45
[2024-05-20] MEDS: CEFEPIME 1 GM/NS 50 ML 1 GM/50 ML BAG IVPB (13:33)
--- NOTE | 2024-05-20 15:20 | PM.IMPN ---
Progress Note: A&P Assessment and Plan (1) Osteomyelitis of shoulder, left: Qualifiers: Osteomyelitis type: unspecified type Qualified Code(s): M86.9 - Osteomyelitis, unspecified Code(s): M86.9 - Osteomyelitis, unspecified Status: Acute (2) Septic arthritis: Qualifiers: Septic arthritis location: shoulder Septic arthritis organism: due to other bacteria Laterality: left Qualified Code(s): M00.812 - Arthritis due to other bacteria, left shoulder Code(s): M00.9 - Pyogenic arthritis, unspecified Status: Acute (3) End stage renal disease: Code(s): N18.6 - End stage renal disease Status: Chronic (4) CHF (congestive heart failure): Qualifiers: Heart failure chronicity: acute on chronic Heart failure type: unspecified Qualified Code(s): I50.9 - Heart failure, unspecified Code(s): I50.9 - Heart failure, unspecified Status: Chronic (5) Hypertension: Code(s): I10 - Essential (primary) hypertension Status: Chronic (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 Consult Ortho for aspiration [facility]: Mobap and Depaul refused. Accepted to [facility]. 5-7 day waight. [facility] still has wait. Full code. Greater than 40 minute spent on transfer line attempting to get the patient accepted to other facilities for ID and orthopedic consultation. Subjective Date/time seen: 05/20/24 15:20 Interval history: Patient reports intermittently controlled pain Review of Systems Review of Systems: All systems reviewed & are unremarkable except as noted in HPI and below (Subjective) Exam Narrative: Left shoulder edematous. No erythema or open wounds. Range of motion limited due to pain., improved edema and pain and range of motion. Const: General: comfortable and no acute distress Neck: Neck: supple Resp: Effort & Inspection: normal respiratory effort Auscultation: clear to auscultation bilaterally Cardio: Rate: regular rate Rhythm: regular rhythm GI: GI Palp: Yes Soft to palpation and No Tenderness to palpation present (GI) Neuro: Other: No focal deficits Extrem: General: no edema Psych: Mental Status: mental status grossly normal Objective Data Vital Signs Vital Signs: Vital Signs - 24 hr 05/19/24 20:00 05/19/24 22:04 05/20/24 05:38 Temperature 99.0 F 98.1 F Pulse Rate 90 89 82 Respiratory Rate 18 16 18 Blood Pressure 137/77 140/84 Pulse Oximetry 97 97 100 Oxygen Delivery Room Air Fraction of Inspired Oxygen 98 05/20/24 08:36 05/20/24 08:54 05/20/24 09:06 Temperature 98.3 F Pulse Rate 82 85 85 Respiratory Rate 18 Blood Pressure 163/91 H 168/94 H Pulse Oximetry Oxygen Delivery Fraction of Inspired Oxygen 05/20/24 09:15 05/20/24 09:30 05/20/24 09:45 Temperature Pulse Rate 86 89 87 Respiratory Rate Blood Pressure 171/97 H 157/81 H 164/88 H Pulse Oximetry Oxygen Delivery Fraction of Inspired Oxygen 05/20/24 10:00 05/20/24 10:15 05/20/24 10:30 Temperature Pulse Rate 89 87 86 Respiratory Rate Blood Pressure 133/85 153/89 H 143/83 H Pulse Oximetry Oxygen Delivery Fraction of Inspired Oxygen 05/20/24 08:36 05/20/24 10:45 05/20/24 11:00 Temperature Pulse Rate 88 87 Respiratory Rate Blood Pressure 147/84 H 140/81 Pulse Oximetry Oxygen Delivery Room Air Fraction of Inspired Oxygen 05/20/24 11:15 05/20/24 11:30 05/20/24 11:45 Temperature Pulse Rate 86 88 84 Respiratory Rate Blood Pressure 151/82 H 183/97 H 163/91 H Pulse Oximetry Oxygen Delivery Fraction of Inspired Oxygen 05/20/24 12:00 05/20/24 12:15 05/20/24 14:07 Temperature 97.8 F Pulse Rate 84 87 9
[2024-05-20] MEDS: VANCOMYCIN 1,000 MG/NS 250 ML 1,000 MG/250 ML BAG 250 MG IVPB (16:07)
[2024-05-20 16:37] LABS: Glucose Point of Care 269 mg/dl (65-105)
[2024-05-20] MEDS: INSULIN ASPART (*BKC) 100 UNITS/ML SUB-Q ×2 (16:58→21:06)
[2024-05-20 21:04] LABS: Glucose Point of Care 248 mg/dl (65-105)
[2024-05-21] MEDS: MELATONIN 3 MG TABLET PO ×2 (00:01→20:31)
[2024-05-21] MEDS: HYDROmorphone HCL INJ (*CRX) 1 MG/ML SYR 0.5 MG IV PUSH ×5 (00:01→23:31)
[2024-05-21 05:05] VITALS: BP 132/79; PULSE 85; RESP 20; TEMP 36.6; O2SAT 98
[2024-05-21 06:25] LABS: Basophils Absolute Auto 0.1 K/mm3 (0.0-0.1); Basophils Percent Auto 0.5 % (0.2-1.2); Eosinophils Absolute Auto 0.6 K/mm3 (0-0.3); Eosinophils Percent Auto 6.3 % (0-4.4); Immature Granulocyte Absolute 0.06 K/mm3 (0.00-0.031); Immature Granulocyte Percent A 0.6 % (0-0.5); Lymphocytes Absolute Auto 2.56 K/mm3 (0.9-3.2); Lymphocytes Percent Auto 26.2 % (18.3-44.2); Mean Corpuscular HGB Conc 29.4 g/dl (32-36); Mean Corpuscular Hemoglobin 29.2 pg (26-34); Mean Corpuscular Volume 99.1 fl (80-100); Mean Platelet Volume 9.7 fl (7.4-10.4); Monocytes Absolute Auto 0.8 K/mm3 (0.1-0.6); Monocytes Percent Auto 7.9 % (2.6-8.5); Neutrophils Absolute Auto 5.7 K/mm3 (1.3-6.7); Neutrophils Percent Auto 58.5 % (45.5-73.1); Nucleated Red Blood Cells Perc 0.4 % (0.0-0.2); Platelet Count Result 366 k/mm3 (150-375); Red Blood Count 3.43 M/mm3 (4.2-5.4); Red Cell Distribution Width 14.6 % (11.5-14.5); White Blood Count 9.8 K/mm3 (4.5-10.0)
[2024-05-21 06:49] LABS: Alanine Aminotransferase 42 U/L (6-35); Albumin Level 2.9 g/dL (3.5-5.1); Alkaline Phosphatase 179 U/L (38-126); Anion Gap 6 mmol/L (4-12); Aspartate Amino Transferase 34 U/L (14-36); Bilirubin,Total 0.1 mg/dL (0.2-1.3); Blood Urea Nitrogen 21 mg/dL (7-17); Calcium 8.6 mg/dL (8.4-10.2); Carbon Dioxide 30 mmol/L (22-30); Chloride 101 mmol/L (98-107); Estimated CRCL calculation 29 ml/min; Estimated Glomerular Filt Rate 20; Glucose 215 mg/dL (65-110); Sodium 137 mmol/L (137-145)
[2024-05-21 06:59] LABS: Platelet Estimate Adequate (Adequate)
[2024-05-21 07:01] LABS: Hypochromasia 1+; Macrocytosis 1+ (NORMAL); Schistocytes Rare
[2024-05-21 07:52] LABS: Glucose Point of Care 156 mg/dl (65-105)
[2024-05-21] MEDS: lisinopriL 20 MG TABLET PO (09:23)
[2024-05-21 09:24] VITALS: PULSE 85
[2024-05-21] MEDS: VITAMIN B CMPLX/VIT C/FOLIC AC 1 CAPSULE 1 CAP PO (09:24)
[2024-05-21] MEDS: carvediloL 12.5 MG TABLET PO ×2 (09:24→20:27)
[2024-05-21] MEDS: amLODIPine BESYLATE 10 MG TABLET PO (09:24)
[2024-05-21] MEDS: GABAPENTIN 100 MG CAPSULE PO ×3 (09:24→17:03)
[2024-05-21] MEDS: HEPARIN SODIUM 5,000 UNITS/ML VIAL 5000 UNITS SUB-Q ×2 (09:25→20:27)
[2024-05-21] MEDS: HYDROcodone/acetaminophen (*CRX) 10-325 MG TABLET 1 TAB PO (09:29)
[2024-05-21] MEDS: FUROSEMIDE 40 MG TABLET PO (09:29)
--- NOTE | 2024-05-21 10:37 | PM.CNOR ---
Assessment and Plan Assessment and plan (1) Septic arthritis: Qualifiers: Laterality: left Septic arthritis location: shoulder Septic arthritis organism: due to other bacteria Qualified Code(s): M00.812 - Arthritis due to other bacteria, left shoulder <VERA Chase - Last Filed: 05/21/24 13:03> Code(s): M00.9 - Pyogenic arthritis, unspecified <VERA Chase - Last Filed: 05/21/24 13:03> Status: Acute <VERA Chase - Last Filed: 05/21/24 13:03> Assessment and Plan: History, exam, CT scan and radiographs reviewed with the patient. CT scan from May 15 reveals a large complex left subacromial/subdeltoid and subcoracoid bursal fluid collections with associated osteolysis at the coracoid process and undersurface of the acromion consistent with septic bursitis and associated osteomyelitis. The CT scan was compared to images from February of 2024 with progression noted. Independent review of radiographs on 05/15 reveal erosions at the undersurface of the acromion and a large joint effusion with soft tissue swelling as well consistent with the CT scan. Condition, nature, etiology and course of natural history discussed. Conservative and operative treatment options reviewed as well as the risks and benefits of both. Recommended aspiration of the left shoulder joint today under sterile conditions with fluid to be sent for STAT Gram stain, culture and cell count. Patient verbalized understanding and agrees with plan of care. 145mL of cloudy serosanguineous fluid aspirated and sent for evaluation. Plans for patient to be transferred to [facility] for futher evaluation and possible surgical intervention with ID consultation and treatment. Continue IV antibiotics per the medicine team. Pain control. Ice as needed. WBAT. <VERA Chase - Last Filed: 05/21/24 13:03> (2) Osteomyelitis of shoulder, left: Qualifiers: Osteomyelitis type: unspecified type Qualified Code(s): M86.9 - Osteomyelitis, unspecified <VERA Chase - Last Filed: 05/21/24 13:03> Code(s): M86.9 - Osteomyelitis, unspecified <VERA Chase - Last Filed: 05/21/24 13:03> Status: Acute <VERA Chase - Last Filed: 05/21/24 13:03> Assessment and Plan: Patient seen and examined with VERA Berumen. medical record, radiographs, CT scan and previous visits reviewed. Agree with consultation note. Left shoulder septic bursitis with possible osteomyelitis. Recommend aspiration and continue IV antibiotics. Aspiration performed. 145 cc of purulent and serosanguineous fluid removed. <Casa Gates MD - Last Filed: 05/21/24 13:18> (3) Sickle cell anemia: Qualifiers: Sickle-cell associated disorders: with unspecified crisis Qualified Code(s): D57.00 - Hb-SS disease with crisis, unspecified <VERA Chase - Last Filed: 05/21/24 13:03> Code(s): D57.1 - Sickle-cell disease without crisis <VERA Chase - Last Filed: 05/21/24 13:03> Status: Acute <VERA Chase - Last Filed: 05/21/24 13:03> Assessment and Plan: Reviewed history, exam, radiographs and current labs with attending MD and covering surgeon, Dr. Gates, who agrees with current plan as indicated above. No further recommendations from Dr. Gates at this time. <VERA Chase - Last Filed: 05/21/24 13:03> History of Present Illness HPI Consult date: 05/21/24 <VERA Chase - Last Filed: 05/21/24 13:03> 05/21/24 <Casa Gates MD - Last Filed: 05/21/24 13:18> Chief complaint: hyperkalemia,end stage renal diseasse,osteomyeliti <VERA Chase - Last Filed: 05/21/24 13:03> Narrative: Orthopedic consultation for this 33-year-old female who was admitted on May 15 with an acute onset left shoulder swelling and pain. The patient has a past medical history of end-stage renal disease,
--- NOTE | 2024-05-21 10:37 | PM.OP ---
Procedure Note - Brief Procedure Note - Brief Date of procedure: 05/21/24 hyperkalemia,end stage renal diseasse,osteomyeliti Post-op diagnosis: Same Procedure performed: Left Shoulder Aspiration Surgeon: Dr. Casa Gates Drug Safety Scientist: VERA Awad Anesthesia: local Findings: Fluid yielded= 145mL of cloudy, serosanguineous fluid. Description of procedure: Left Shoulder Aspiration under sterile conditions. Fluid yielded= 145mL of cloudy, serosanguineous fluid. Sent for cell count, STAT gram stain, culture. Patient still with complaints of pain post aspiration. Mile improvement with ROM. The risks of injection were reviewed including but not limited to skin color changes, atrophy of the soft tissue, tendon or soft tissue rupture, joint degeneration, hyper inflammatory response, allergic reaction, continued pain or dysfunction. Specific risks of the procedure including deep infection or soft tissue rupture or recurrence of symptoms reviewed. No guarantees were offered. The patient understands the need for possible further treatment. Estimated blood loss (mL): 0 Total Tourniquet Time: 0 IV fluids (mL): 145 Urine output (mL): 600 Drains: No Packing: No Pathology: None sent Complications: No immediate complications Condition: Stable Disposition: No change
[2024-05-21 11:29] LABS: Glucose Point of Care 243 mg/dl (65-105)
[2024-05-21 11:30] LABS: Appearance Synovial Fluid Hazy (Clear); Color Synovial Fluid Yellow (Colorless); Source Synovial Fluid Synovial fluid
[2024-05-21 11:33] LABS: Lymphocytes Synovial Fluid 3 %; Neutrophils Synovial Fluid 87 % (0-25)
[2024-05-21 11:34] LABS: Macrophages Synovial Fluid 8 %
[2024-05-21 11:36] LABS: Other Cells Synovial Fluid 2 %
[2024-05-21] MEDS: INSULIN ASPART (*BKC) 100 UNITS/ML SUB-Q ×2 (12:13→20:27)
[2024-05-21 12:19] LABS: Crystals Synovial Fluid None Seen (None Seen)
--- NOTE | 2024-05-21 12:28 | P.PNNP_ITS ---
Progress Note: A&P Assessment and Plan (1) End stage renal disease: Code(s): N18.6 - End stage renal disease Status: Chronic Assessment and Plan: * HD was done yesterday. * Next 1 will be tomorrow * Potassium and bicarbonate are good. BUN is fine. * Volume status looks good (2) Hyperkalemia: Code(s): E87.5 - Hyperkalemia Status: Acute Assessment and Plan: * resolved (3) Septic arthritis: Code(s): M00.9 - Pyogenic arthritis, unspecified Status: Acute Assessment and Plan: * as noted by admission imaging: * X-ray of left shoulder negative * CT of left shoulder with large complex left subacromial/subdeltoid and subcoracoid bursal fluid collection measuring 10.7 cm x 6.5 cm with associated osteolysis at the coracoid process and undersurface of the acromion consistent with septic bursitis and associated osteomyelitis both of which have progressed since 02/22/2024 * on broad spectrum antibiotics * pain control * Ortho following. * Considering hospital transfer (4) Osteomyelitis of shoulder, left: Code(s): M86.9 - Osteomyelitis, unspecified Status: Acute Assessment and Plan: * see #3 (5) Hypertension: Code(s): I10 - Essential (primary) hypertension Status: Chronic Assessment and Plan: * Systolic running 130-160 recently. * suspect pain playing a role * resumed home medications * dialysis may help to some degree with fluid removal * follow trend of hemodynamics (6) Anemia: Code(s): D64.9 - Anemia, unspecified Status: Chronic Assessment and Plan: * due to ESRD and acute illness * Epogen with HD * follow H/H (7) Diabetes mellitus: Code(s): E11.9 - Type 2 diabetes mellitus without complications Status: Chronic Assessment and Plan: * follow accu-cheks * glycemic control per hospitalists Subjective Date/time seen: 05/21/24 12:28 Interval history: Gay is feeling a little better. He still has some shoulder pain She says they drained some fluid off earlier today. Exam Narrative: General: large female in NAD Heart: normal S1 and S2; no rub or gallop Lungs: decreased breath sounds at bases Abdomen: obese but soft, nontender, nondistended, positive bowel sounds Extremities: no cyanosis or clubbing; s/p left AKA Skin: No rash Objective Data Vital Signs Vital Signs: Vital Signs - 24 hr 05/20/24 14:07 05/20/24 12:30 05/20/24 12:36 Temperature 97.8 F Pulse Rate 91 86 87 Respiratory Rate 16 Blood Pressure 158/55 H 138/98 H 143/84 H Pulse Oximetry 99 Oxygen Delivery 05/20/24 12:46 05/20/24 20:54 05/20/24 20:55 Temperature 98.6 F 96.9 F L Pulse Rate 89 94 93 Respiratory Rate 18 20 Blood Pressure 146/73 H 149/70 H Pulse Oximetry 98 Oxygen Delivery 05/21/24 05:05 05/21/24 09:24 05/21/24 09:20 Temperature 97.9 F Pulse Rate 85 85 Respiratory Rate 20 Blood Pressure 132/79 Pulse Oximetry 98 Oxygen Delivery Room Air Intake/Output Intake/Output: Intake & Output 05/18/24 05/19/24
--- NOTE | 2024-05-21 12:28 | PM.PNNEP ---
Progress Note: A&P Assessment and Plan (1) End stage renal disease: Code(s): N18.6 - End stage renal disease Status: Chronic Assessment and Plan: HD was done yesterday. Next 1 will be tomorrow Potassium and bicarbonate are good. BUN is fine. Volume status looks good (2) Hyperkalemia: Code(s): E87.5 - Hyperkalemia Status: Acute Assessment and Plan: resolved (3) Septic arthritis: Code(s): M00.9 - Pyogenic arthritis, unspecified Status: Acute Assessment and Plan: as noted by admission imaging: X-ray of left shoulder negative CT of left shoulder with large complex left subacromial/subdeltoid and subcoracoid bursal fluid collection measuring 10.7 cm x 6.5 cm with associated osteolysis at the coracoid process and undersurface of the acromion consistent with septic bursitis and associated osteomyelitis both of which have progressed since 02/22/2024 on broad spectrum antibiotics pain control Ortho following. Considering hospital transfer (4) Osteomyelitis of shoulder, left: Code(s): M86.9 - Osteomyelitis, unspecified Status: Acute Assessment and Plan: see #3 (5) Hypertension: Code(s): I10 - Essential (primary) hypertension Status: Chronic Assessment and Plan: Systolic running 130-160 recently. suspect pain playing a role resumed home medications dialysis may help to some degree with fluid removal follow trend of hemodynamics (6) Anemia: Code(s): D64.9 - Anemia, unspecified Status: Chronic Assessment and Plan: due to ESRD and acute illness Epogen with HD follow H/H (7) Diabetes mellitus: Code(s): E11.9 - Type 2 diabetes mellitus without complications Status: Chronic Assessment and Plan: follow accu-cheks glycemic control per hospitalists Subjective Date/time seen: 05/21/24 12:28 Interval history: Gay is feeling a little better. He still has some shoulder pain She says they drained some fluid off earlier today. Exam Narrative: General: large female in NAD Heart: normal S1 and S2; no rub or gallop Lungs: decreased breath sounds at bases Abdomen: obese but soft, nontender, nondistended, positive bowel sounds Extremities: no cyanosis or clubbing; s/p left AKA Skin: No rash Objective Data Vital Signs Vital Signs: Vital Signs - 24 hr 05/20/24 14:07 05/20/24 12:30 05/20/24 12:36 Temperature 97.8 F Pulse Rate 91 86 87 Respiratory Rate 16 Blood Pressure 158/55 H 138/98 H 143/84 H Pulse Oximetry 99 Oxygen Delivery 05/20/24 12:46 05/20/24 20:54 05/20/24 20:55 Temperature 98.6 F 96.9 F L Pulse Rate 89 94 93 Respiratory Rate 18 20 Blood Pressure 146/73 H 149/70 H Pulse Oximetry 98 Oxygen Delivery 05/21/24 05:05 05/21/24 09:24 05/21/24 09:20 Temperature 97.9 F Pulse Rate 85 85 Respiratory Rate 20 Blood Pressure 132/79 Pulse Oximetry 98 Oxygen Delivery Room Air Intake/Output Intake/Output: Intake & Output 05/18/24 05/19/24 05/20/24 05/21/24 23:59 23:59 23:59 23:59 Intake Total 117 054 5748 660 Output Total 3100 1400 2600 1000 [facility]2580 -810 -1310 -340 Meds/Results Medications: Active Medications Generic Name Dose Route Start Last Admin Trade Name Freq PRN Reason Stop Dose Admin Acetaminophen 650 mg 05/16/24 02:37 Acetaminophen 325 Mg Tablet PO Q4H PRN Mild Pain (1-3) or Fever Hydrocodone Bitart/Acetaminophen 1 tab 05/16/24 13:24 05/21/24 09:29 Hydrocodone/Acetaminophen (*Crx) 10-325 Mg Tablet PO 1 tab Q4H PRN Administration Pain Rated 4-6 Hydrocodone Bitart/Acetaminophen 1 tab 05/18/24 15:59 Hydrocodone/Acetaminophen (*Crx) 5-325 Mg Tablet PO Q4H PRN Pain Rated 1-3 Amlodipine Besylate 10 mg 05/17/24 09:00 05/21/24 09:24 Amlodipine Besylate 10 Mg Tablet PO 10 mg DAILY [facility]
[2024-05-21 14:00] VITALS: BP 122/71; PULSE 83; RESP 18; TEMP 36.7; O2SAT 100
[2024-05-21 14:10] LABS: Nucleated Cell Synovial Fluid 21668 /uL (0-200); RBC Synovial Fluid 12000 /uL (0-0)
[2024-05-21] MEDS: CEFEPIME 1 GM/NS 50 ML 1 GM/50 ML BAG IVPB (14:58)
[2024-05-21 16:31] LABS: Glucose Point of Care 207 mg/dl (65-105)
--- NOTE | 2024-05-21 17:42 | PM.IMPN ---
Progress Note: A&P Assessment and Plan (1) Osteomyelitis of shoulder, left: Qualifiers: Osteomyelitis type: unspecified type Qualified Code(s): M86.9 - Osteomyelitis, unspecified Code(s): M86.9 - Osteomyelitis, unspecified Status: Acute (2) Septic arthritis: Qualifiers: Septic arthritis location: shoulder Septic arthritis organism: due to other bacteria Laterality: left Qualified Code(s): M00.812 - Arthritis due to other bacteria, left shoulder Code(s): M00.9 - Pyogenic arthritis, unspecified Status: Acute (3) End stage renal disease: Code(s): N18.6 - End stage renal disease Status: Chronic (4) CHF (congestive heart failure): Qualifiers: Heart failure chronicity: acute on chronic Heart failure type: unspecified Qualified Code(s): I50.9 - Heart failure, unspecified Code(s): I50.9 - Heart failure, unspecified Status: Chronic (5) Hypertension: Code(s): I10 - Essential (primary) hypertension Status: Chronic (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 Orthopedic surgery consultation is greatly appreciated. On 05/21 Dr. Gates perform left shoulder aspiration yielding 145 cc of cloudy serosanguineous fluid. Pending cell count Gram stain and culture. Patient did well, now reports better pain and less edema. Patient is still waiting for bed at [facility]. Mobap and Depaul refused. Accepted at [facility]. Continue cefepime and vancomycin. Can you p.r.n. pain control. Continue Accu-Cheks and insulin sliding scale. Continue dialysis per Nephrology schedule. Continue to monitor blood pressure. Full code. Heparin subQ No GI prophylaxis indicated Peripheral IV, indwelling right-sided tunneled dialysis catheter on the chest wall Subjective Date/time seen: 05/21/24 17:42 Interval history: No acute overnight events. The patient is seen post shoulder aspiration. She reports the pain and swelling are down and feels better. Patient has no other complaints. Review of Systems Review of Systems: All systems reviewed & are unremarkable except as noted in HPI and below (Subjective) Exam Narrative: Left shoulder edema greatly improved. No erythema or open wounds. Chest, Right-sided tunneled dialysis catheter. Const: General: comfortable and no acute distress Neck: Neck: supple Resp: Effort & Inspection: normal respiratory effort Auscultation: clear to auscultation bilaterally Cardio: Rate: regular rate Rhythm: regular rhythm GI: GI Palp: Yes Soft to palpation and No Tenderness to palpation present (GI) Neuro: Other: No focal deficits Extrem: General: no edema Psych: Mental Status: mental status grossly normal Objective Data Vital Signs Vital Signs: Vital Signs - 24 hr 05/20/24 20:54 05/20/24 20:55 05/21/24 05:05 Temperature 96.9 F L 97.9 F Pulse Rate 94 93 85 Respiratory Rate 20 20 Blood Pressure 149/70 H 132/79 Pulse Oximetry 98 98 Oxygen Delivery 05/21/24 09:24 05/21/24 09:20 05/21/24 14:00 Temperature 98.0 F Pulse Rate 85 83 Respiratory Rate 18 Blood Pressure 122/71 Pulse Oximetry 100 Oxygen Delivery Room Air Intake/Output Intake/Output: Intake & Output 05/18/24 05/19/24 05/20/24 05/21/24 23:59 23:59 23:59 23:59 Intake Total 297 177 6400 1060 Output Total 3100 1400 2600 1000 Balance -2580 -810 -1310 60 Meds/Results Medications: Active Medications Generic Name Dose Route Start Last Admin Trade Name Freq PRN Reason Stop Dose Admin Acetaminophen 650 mg 05/16/24 02:37 Acetaminophen 325 Mg Tablet PO Q4H PRN Mild Pain (1-3) or Fever Hydrocodone Bitart/Acetaminophen 1 tab 05/16/24 13:24 05/21/24
[2024-05-21 20:25] VITALS: BP 137/79; PULSE 89; RESP 16; TEMP 36.3; O2SAT 100
[2024-05-21 20:27] VITALS: PULSE 89
[2024-05-21 20:37] LABS: Glucose Point of Care 337 mg/dl (65-105)
[2024-05-22] VITALS (22 sets, daily range): BP systolic 120–169; BP diastolic 65–109; PULSE 82–98; RESP 16–18; TEMP 36.3–37; O2SAT 88–99
[2024-05-22] MEDS: HYDROmorphone HCL INJ (*CRX) 1 MG/ML SYR 0.5 MG IV PUSH ×4 (05:24→20:52)
[2024-05-22 05:32] LABS: Basophils Absolute Auto 0.1 K/mm3 (0.0-0.1); Basophils Percent Auto 0.5 % (0.2-1.2); Eosinophils Absolute Auto 0.8 K/mm3 (0-0.3); Eosinophils Percent Auto 8.2 % (0-4.4); Hematocrit 33.3 % (37.0-47.0); Hemoglobin 10.1 g/dL (12.0-15.0); Immature Granulocyte Absolute 0.06 K/mm3 (0.00-0.031); Immature Granulocyte Percent A 0.6 % (0-0.5); Lymphocytes Absolute Auto 2.74 K/mm3 (0.9-3.2); Mean Corpuscular HGB Conc 30.3 g/dl (32-36); Mean Corpuscular Hemoglobin 30.1 pg (26-34); Mean Corpuscular Volume 99.1 fl (80-100); Mean Platelet Volume 9.3 fl (7.4-10.4); Monocytes Absolute Auto 0.8 K/mm3 (0.1-0.6); Monocytes Percent Auto 8.3 % (2.6-8.5); Neutrophils Absolute Auto 5.3 K/mm3 (1.3-6.7); Neutrophils Percent Auto 54.4 % (45.5-73.1); Nucleated Red Blood Cells Perc 0.2 % (0.0-0.2); Platelet Count Result 419 k/mm3 (150-375); Red Blood Count 3.36 M/mm3 (4.2-5.4); Red Cell Distribution Width 14.8 % (11.5-14.5); White Blood Count 9.8 K/mm3 (4.5-10.0)
[2024-05-22 05:47] LABS: Albumin Level 3.2 g/dL (3.5-5.1); Anion Gap 10 mmol/L (4-12); Blood Urea Nitrogen 34 mg/dL (7-17); Calcium 8.3 mg/dL (8.4-10.2); Carbon Dioxide 25 mmol/L (22-30); Chloride 102 mmol/L (98-107); Estimated CRCL calculation 25 ml/min; Estimated Glomerular Filt Rate 17; Glucose 165 mg/dL (65-110); Phosphorus 5.1 mg/dL (2.5-4.5); Potassium 4.8 mmol/L (3.4-5.0); Sodium 137 mmol/L (137-145)
[2024-05-22 05:56] LABS: Vancomycin Random 16.5 ug/mL (10-20)
[2024-05-22 07:36] LABS: Glucose Point of Care 148 mg/dl (65-105)
[2024-05-22] MEDS: GABAPENTIN 100 MG CAPSULE PO ×2 (08:49→16:48)
[2024-05-22] MEDS: HEPARIN SODIUM 5,000 UNITS/ML VIAL 5000 UNITS SUB-Q ×2 (08:49→20:53)
[2024-05-22] MEDS: EPOETIN ALFA-EPBX 10,000 UNITS/ML VIAL 10000 UNITS IV PUSH (09:28)
[2024-05-22 12:24] LABS: Glucose Point of Care 159 mg/dl (65-105)
[2024-05-22] MEDS: amLODIPine BESYLATE 10 MG TABLET PO (13:39)
[2024-05-22] MEDS: carvediloL 12.5 MG TABLET PO ×2 (13:40→20:54)
[2024-05-22] MEDS: lisinopriL 20 MG TABLET PO ×2 (13:40→16:48)
[2024-05-22] MEDS: VITAMIN B CMPLX/VIT C/FOLIC AC 1 CAPSULE 1 CAP PO (13:40)
[2024-05-22] MEDS: CEFEPIME 1 GM/NS 50 ML 1 GM/50 ML BAG IVPB (13:41)
--- NOTE | 2024-05-22 14:45 | PM.IMPN ---
Progress Note: A&P Assessment and Plan (1) Osteomyelitis of shoulder, left: Qualifiers: Osteomyelitis type: unspecified type Qualified Code(s): M86.9 - Osteomyelitis, unspecified Code(s): M86.9 - Osteomyelitis, unspecified Status: Acute (2) Septic arthritis: Qualifiers: Septic arthritis location: shoulder Septic arthritis organism: due to other bacteria Laterality: left Qualified Code(s): M00.812 - Arthritis due to other bacteria, left shoulder Code(s): M00.9 - Pyogenic arthritis, unspecified Status: Acute (3) End stage renal disease: Code(s): N18.6 - End stage renal disease Status: Chronic (4) CHF (congestive heart failure): Qualifiers: Heart failure chronicity: acute on chronic Heart failure type: unspecified Qualified Code(s): I50.9 - Heart failure, unspecified Code(s): I50.9 - Heart failure, unspecified Status: Chronic (5) Hypertension: Code(s): I10 - Essential (primary) hypertension Status: Chronic (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 Orthopedic surgery consultation is greatly appreciated. On 05/21 Dr. Gates perform left shoulder aspiration yielding 145 cc of cloudy serosanguineous fluid. Pending culture results. Patient did well, now reports better pain and less edema. Patient is still waiting for bed at [facility]. [facility] and [facility] refused. Accepted at [facility]. Continue cefepime and vancomycin. Can you p.r.n. pain control. Continue Accu-Cheks and insulin sliding scale. Continue dialysis per Nephrology schedule. Continue to monitor blood pressure. Full code. Heparin subQ No GI prophylaxis indicated Peripheral IV, indwelling right-sided tunneled dialysis catheter on the chest wall Subjective Date/time seen: 05/22/24 14:45 Interval history: No major acute overnight events. Patient reports the pain is about the same. She believes the swelling is better persistently. Review of Systems Review of Systems: All systems reviewed & are unremarkable except as noted in HPI and below (Subjective) Exam Narrative: Left shoulder edema greatly improved. No erythema or open wounds. Chest, Right-sided tunneled dialysis catheter. Const: General: comfortable and no acute distress Neck: Neck: supple Resp: Effort & Inspection: normal respiratory effort Auscultation: clear to auscultation bilaterally Cardio: Rate: regular rate Rhythm: regular rhythm GI: GI Palp: Yes Soft to palpation and No Tenderness to palpation present (GI) Neuro: Other: No focal deficits Extrem: General: no edema Psych: Mental Status: mental status grossly normal Objective Data Vital Signs Vital Signs: Vital Signs - 24 hr 05/21/24 20:27 05/21/24 20:25 05/22/24 05:05 Temperature 97.4 F L 97.4 F L Pulse Rate 89 89 83 Respiratory Rate 16 16 Blood Pressure 137/79 155/84 H Pulse Oximetry 100 96 05/22/24 09:01 05/22/24 09:13 05/22/24 09:30 Temperature 98.4 F Pulse Rate 85 83 90 Respiratory Rate 18 Blood Pressure 161/91 H 168/97 H 141/86 H Pulse Oximetry 05/22/24 09:45 05/22/24 10:00 05/22/24 10:15 Temperature Pulse Rate 94 90 90 Respiratory Rate Blood Pressure 161/97 H 169/97 H 166/98 H Pulse Oximetry 05/22/24 10:30 05/22/24 10:45 05/22/24 11:00 Temperature Pulse Rate 93 93 93 Respiratory Rate Blood Pressure 150/87 H 160/100 H 139/98 H Pulse Oximetry 05/22/24 11:15 05/22/24 11:30 05/22/24 11:45 Temperature Pulse Rate 98 93 94 Respiratory Rate Blood Pressure 136/109 H 146/89 H 166/98 H Pulse Oximetry 05/22/24 12:00 05/22/24 12:15 05/22/24 12:30 Temperature Pulse Rate 94 92 92 Respiratory Rate Bl
--- NOTE | 2024-05-22 15:43 | P.PNNP_ITS ---
Progress Note: A&P Assessment and Plan (1) End stage renal disease: Code(s): N18.6 - End stage renal disease Status: Chronic Assessment and Plan: * HD was done yesterday. * Next 1 will be Friday * Potassium and bicarbonate are good. BUN is fine. * Volume status looks good (2) Hyperkalemia: Code(s): E87.5 - Hyperkalemia Status: Acute Assessment and Plan: * resolved (3) Septic arthritis: Qualifiers: Septic arthritis location: shoulder Septic arthritis organism: due to other bacteria Laterality: left Qualified Code(s): M00.812 - Arthritis due to other bacteria, left shoulder Code(s): M00.9 - Pyogenic arthritis, unspecified Status: Acute Assessment and Plan: * as noted by admission imaging: * X-ray of left shoulder negative * CT of left shoulder with large complex left subacromial/subdeltoid and subcoracoid bursal fluid collection measuring 10.7 cm x 6.5 cm with associated osteolysis at the coracoid process and undersurface of the acromion consistent with septic bursitis and associated osteomyelitis both of which have progressed since 02/22/2024 * on broad spectrum antibiotics * pain control * Ortho following. * Considering hospital transfer (4) Osteomyelitis of shoulder, left: Qualifiers: Osteomyelitis type: unspecified type Qualified Code(s): M86.9 - Osteomyelitis, unspecified Code(s): M86.9 - Osteomyelitis, unspecified Status: Acute Assessment and Plan: * see #3 (5) Hypertension: Code(s): I10 - Essential (primary) hypertension Status: Chronic Assessment and Plan: * Systolic running 140s and 150s last 24hours. * On amlodipine 10, carvedilol 12.5, lisinopril 20. Will increase latter to 40 and give it in the evening * dialysis may help to some degree with fluid removal (6) Anemia: Code(s): D64.9 - Anemia, unspecified Status: Chronic Assessment and Plan: * due to ESRD and acute illness * Epogen with HD * hemoglobin 10.1 today (7) Diabetes mellitus: Code(s): E11.9 - Type 2 diabetes mellitus without complications Status: Chronic Assessment and Plan: * follow accu-cheks * glycemic control per hospitalists Subjective Date/time seen: 05/22/24 15:43 Interval history: Gay is feeling about the same. Shoulder is about the same. She had her dialysis this morning Exam Narrative: General: large female in NAD Heart: normal S1 and S2; no rub Lungs: fairly clear Abdomen: obese but soft, nontender, nondistended, positive bowel sounds Extremities: no cyanosis or clubbing; s/p left AKA Skin: No rash or subcu not Objective Data Vital Signs Vital Signs: Vital Signs - 24 hr 05/21/24 20:27 05/21/24 20:25 05/22/24 05:05 Temperature 97.4 F L 97.4 F L Pulse Rate 89 89 83 Respiratory Rate 16 16 Blood Pressure 137/79 155/84 H Pulse Oximetry 100 96 Oxygen Delivery 05/22/24 09:01 05/22/24 09:13 05/22/24 09:30 Temperature 98.4 F Pulse Rate 85 83 90 Respiratory Rate 18 Blood Pressure 161/91 H 168/97 H 141/86 H Pulse Oximetry Oxygen Delivery 05/22/24 09:45 05/22/24 10:00 05/22/24 10:15
--- NOTE | 2024-05-22 15:43 | PM.PNNEP ---
Progress Note: A&P Assessment and Plan (1) End stage renal disease: Code(s): N18.6 - End stage renal disease Status: Chronic Assessment and Plan: HD was done yesterday. Next 1 will be Friday Potassium and bicarbonate are good. BUN is fine. Volume status looks good (2) Hyperkalemia: Code(s): E87.5 - Hyperkalemia Status: Acute Assessment and Plan: resolved (3) Septic arthritis: Qualifiers: Septic arthritis location: shoulder Septic arthritis organism: due to other bacteria Laterality: left Qualified Code(s): M00.812 - Arthritis due to other bacteria, left shoulder Code(s): M00.9 - Pyogenic arthritis, unspecified Status: Acute Assessment and Plan: as noted by admission imaging: X-ray of left shoulder negative CT of left shoulder with large complex left subacromial/subdeltoid and subcoracoid bursal fluid collection measuring 10.7 cm x 6.5 cm with associated osteolysis at the coracoid process and undersurface of the acromion consistent with septic bursitis and associated osteomyelitis both of which have progressed since 02/22/2024 on broad spectrum antibiotics pain control Ortho following. Considering hospital transfer (4) Osteomyelitis of shoulder, left: Qualifiers: Osteomyelitis type: unspecified type Qualified Code(s): M86.9 - Osteomyelitis, unspecified Code(s): M86.9 - Osteomyelitis, unspecified Status: Acute Assessment and Plan: see #3 (5) Hypertension: Code(s): I10 - Essential (primary) hypertension Status: Chronic Assessment and Plan: Systolic running 140s and 150s last 24hours. On amlodipine 10, carvedilol 12.5, lisinopril 20. Will increase latter to 40 and give it in the evening dialysis may help to some degree with fluid removal (6) Anemia: Code(s): D64.9 - Anemia, unspecified Status: Chronic Assessment and Plan: due to ESRD and acute illness Epogen with HD hemoglobin 10.1 today (7) Diabetes mellitus: Code(s): E11.9 - Type 2 diabetes mellitus without complications Status: Chronic Assessment and Plan: follow accu-cheks glycemic control per hospitalists Subjective Date/time seen: 05/22/24 15:43 Interval history: Gay is feeling about the same. Shoulder is about the same. She had her dialysis this morning Exam Narrative: General: large female in NAD Heart: normal S1 and S2; no rub Lungs: fairly clear Abdomen: obese but soft, nontender, nondistended, positive bowel sounds Extremities: no cyanosis or clubbing; s/p left AKA Skin: No rash or subcu not Objective Data Vital Signs Vital Signs: Vital Signs - 24 hr 05/21/24 20:27 05/21/24 20:25 05/22/24 05:05 Temperature 97.4 F L 97.4 F L Pulse Rate 89 89 83 Respiratory Rate 16 16 Blood Pressure 137/79 155/84 H Pulse Oximetry 100 96 Oxygen Delivery 05/22/24 09:01 05/22/24 09:13 05/22/24 09:30 Temperature 98.4 F Pulse Rate 85 83 90 Respiratory Rate 18 Blood Pressure 161/91 H 168/97 H 141/86 H Pulse Oximetry Oxygen Delivery 05/22/24 09:45 05/22/24 10:00 05/22/24 10:15 Temperature Pulse Rate 94 90 90 Respiratory Rate Blood Pressure 161/97 H 169/97 H 166/98 H Pulse Oximetry Oxygen Delivery 05/22/24 10:30 05/22/24 10:45 05/22/24 11:00 Temperature Pulse Rate 93 93 93 Respiratory Rate Blood Pressure 150/87 H 160/100 H 139/98 H Pulse Oximetry Oxygen Delivery 05/22/24 11:15 05/22/24 11:30 05/22/24 11:45 Temperature Pulse Rate 98 93 94 Respiratory Rate Blood Pressure 136/109 H 146/89 H 166/98 H Pulse Oximetry Oxygen Delivery 05/22/24 12:00 05/22/24 12:15 05/22/24 12:30 Temperature Pulse Rate 94 92 92 Respiratory Rate Blood Pressure 155/97 H 155/92 H 141/89 H Pulse Oximetry Oxygen Delivery 05/22/24 12:44 05/22
[2024-05-22 16:48] LABS: Glucose Point of Care 263 mg/dl (65-105)
[2024-05-22] MEDS: INSULIN ASPART (*BKC) 100 UNITS/ML SUB-Q ×2 (16:48→20:55)
[2024-05-22] MEDS: VANCOMYCIN 1,000 MG/NS 250 ML 1,000 MG/250 ML BAG 250 MG IVPB (16:48)
[2024-05-22] MEDS: TOLNAFTATE 1% POWDER 45 GM BTL 1 APPLIC TOPICAL (20:56)
[2024-05-22 21:55] LABS: Glucose Point of Care 270 mg/dl (65-105)
[2024-05-23] MEDS: HYDROmorphone HCL INJ (*CRX) 1 MG/ML SYR 0.5 MG IV PUSH ×4 (01:01→18:31)
[2024-05-23 05:41] VITALS: BP 150/83; PULSE 80; RESP 18; TEMP 36.1; O2SAT 96
[2024-05-23 07:33] LABS: Hematocrit 36.6 % (37.0-47.0); Hemoglobin 10.7 g/dL (12.0-15.0); Mean Corpuscular HGB Conc 29.2 g/dl (32-36); Mean Corpuscular Volume 102.5 fl (80-100); Mean Platelet Volume 9.5 fl (7.4-10.4); Platelet Count Result 372 k/mm3 (150-375); Red Blood Count 3.57 M/mm3 (4.2-5.4); Red Cell Distribution Width 15.4 % (11.5-14.5); White Blood Count 9.1 K/mm3 (4.5-10.0)
[2024-05-23 07:46] LABS: Glucose Point of Care 181 mg/dl (65-105)
[2024-05-23 08:02] LABS: Albumin Level 3.3 g/dL (3.5-5.1); Anion Gap 8 mmol/L (4-12); Blood Urea Nitrogen 30 mg/dL (7-17); Calcium 8.3 mg/dL (8.4-10.2); Carbon Dioxide 28 mmol/L (22-30); Chloride 99 mmol/L (98-107); Estimated CRCL calculation 30 ml/min; Estimated Glomerular Filt Rate 21; Glucose 197 mg/dL (65-110); Phosphorus 4.7 mg/dL (2.5-4.5); Potassium 4.2 mmol/L (3.4-5.0); Sodium 135 mmol/L (137-145)
--- NOTE | 2024-05-23 08:02 | PM.PNORT ---
Progress Note: A&P Assessment and Plan (1) Septic arthritis of shoulder, left: Qualifiers: Septic arthritis organism: staphylococcal Qualified Code(s): M00.012 - Staphylococcal arthritis, left shoulder Code(s): M00.9 - Pyogenic arthritis, unspecified Status: Acute Assessment and Plan: 2 days status post left shoulder aspiration. Pain and swelling slightly improved. Cultures pending. Continue current treatment. Awaiting transfer to higher level care center. Subjective Subjective Date/Time Seen: 05/23/24 08:02 Principal diagnosis: Left shoulder septic arthritis Interval history: Left shoulder swelling improved. Pain slightly improved. Exam Const: General: cooperative and ill appearing Nutritional Appearance: overweight Orientation/consciousness: patient oriented x3 HENMT: Head: normal to inspection Ears: hearing grossly normal bilaterally Face/Nose/Sinus: Normal external nose present Face and sinus: normal facial exam Mouth: Yes Normal oral and palatal mucosa present Eyes: Other: patient is blind Neck: Neck: normal visual inspection Extrem: Right upper extremity: no joint enlargement and shoulder/upper arm normal to inspection, axillary nerve sensory function normal and normal ROM; no tenderness and no swelling Left upper extremity: shoulder/upper arm tenderness of the clavicle, of the A-C joint, of the proximal humerus and of the mid-shaft humerus, swelling of the proximal humerus anteriorly, axillary nerve sensory function normal, abnormal ROM pain with active ROM in ADduction, in ABduction, in extension, in flexion, in internal rotation and external rotation-, pain with passive ROM in ADduction, in ABduction, in extension, in flexion, in internal rotation and external rotation- and with range as follows (FF: 90 ), deformity (joint swelling ) and warmth (mild ) of the shoulder joint; no lacerations, elbow/forearm normal to inspection, wrist normal to inspection and hand normal to inspection, normal capillary refill, neuromotor exam normal, neurosensory exam normal and no swelling; no tenderness Objective Data Vital Signs Vital Signs: Vital Signs - 24 hr 05/22/24 09:01 05/22/24 09:13 05/22/24 09:30 Temperature 98.4 F Pulse Rate 85 83 90 Respiratory Rate 18 Blood Pressure 161/91 H 168/97 H 141/86 H Pulse Oximetry Oxygen Delivery 05/22/24 09:45 05/22/24 10:00 05/22/24 10:15 Temperature Pulse Rate 94 90 90 Respiratory Rate Blood Pressure 161/97 H 169/97 H 166/98 H Pulse Oximetry Oxygen Delivery 05/22/24 10:30 05/22/24 10:45 05/22/24 11:00 Temperature Pulse Rate 93 93 93 Respiratory Rate Blood Pressure 150/87 H 160/100 H 139/98 H Pulse Oximetry Oxygen Delivery 05/22/24 11:15 05/22/24 11:30 05/22/24 11:45 Temperature Pulse Rate 98 93 94 Respiratory Rate Blood Pressure 136/109 H 146/89 H 166/98 H Pulse Oximetry Oxygen Delivery 05/22/24 12:00 05/22/24 12:15 05/22/24 12:30 Temperature Pulse Rate 94 92 92 Respiratory Rate Blood Pressure 155/97 H 155/92 H 141/89 H Pulse Oximetry Oxygen Delivery 05/22/24 12:44 05/22/24 12:53 05/22/24 13:40 Temperature 98.2 F Pulse Rate 92 94 96 Respiratory Rate 18 Blood Pressure 147/87 H 149/81 H Pulse Oximetry Oxygen Delivery 05/22/24 08:45 05/22/24 16:00 05/22/24 20:46 Temperature 98.0 F 98 F Pulse Rate 88 85 Respiratory Rate 18 16 Blood Pressure 120/65 149/85 H Pulse Oximetry 88 L 99 Oxygen Delivery Room Air 05/22/24 20:54 05/22/24 20:00 05/23/24 05:41 Temperature 97 F L Pulse Rate 82 80 Respiratory Rate 18 Blood Pressure 150/83 H Pulse Oximetry 96 Oxygen Delivery Room Air Intake/Output Intake/Output: Intake & Output 05/20/24 05/21/24 05/22/24 05/23/24 23:59 23:59 23:59 23:59 Intake Total 1290 1110 2770 400 Output Total 2600 1000 3600 Balance -1310 110 -830 400 Meds/Results Medicatio
[2024-05-23 08:30] VITALS: O2SAT 97
[2024-05-23 08:32] VITALS: PULSE 80
[2024-05-23] MEDS: GABAPENTIN 100 MG CAPSULE PO ×3 (08:32→17:03)
[2024-05-23] MEDS: carvediloL 12.5 MG TABLET PO (08:32)
[2024-05-23] MEDS: amLODIPine BESYLATE 10 MG TABLET PO (08:32)
[2024-05-23] MEDS: VITAMIN B CMPLX/VIT C/FOLIC AC 1 CAPSULE 1 CAP PO (08:32)
[2024-05-23] MEDS: HEPARIN SODIUM 5,000 UNITS/ML VIAL 5000 UNITS SUB-Q (08:32)
[2024-05-23] MEDS: TOLNAFTATE 1% POWDER 45 GM BTL 1 APPLIC TOPICAL (08:36)
--- NOTE | 2024-05-23 10:36 | P.PNNP_ITS ---
Progress Note: A&P Assessment and Plan (1) End stage renal disease: Code(s): N18.6 - End stage renal disease Status: Chronic Assessment and Plan: * HD will be on Friday * volume status looks okay. No shortness of breath or swelling. * Potassium and bicarbonate are good. BUN is fine at 30. * will check labs tomorrow (2) Hyperkalemia: Code(s): E87.5 - Hyperkalemia Status: Acute Assessment and Plan: * resolved (3) Septic arthritis: Qualifiers: Septic arthritis location: shoulder Septic arthritis organism: due to other bacteria Laterality: left Qualified Code(s): M00.812 - Arthritis due to other bacteria, left shoulder Code(s): M00.9 - Pyogenic arthritis, unspecified Status: Acute Assessment and Plan: * as noted by admission imaging: * X-ray of left shoulder negative * CT of left shoulder with large complex left subacromial/subdeltoid and subcoracoid bursal fluid collection measuring 10.7 cm x 6.5 cm with associated osteolysis at the coracoid process and undersurface of the acromion consistent with septic bursitis and associated osteomyelitis both of which have progressed since 02/22/2024 * on broad spectrum antibiotics * pain control * Ortho following. * Considering hospital transfer (4) Osteomyelitis of shoulder, left: Qualifiers: Osteomyelitis type: unspecified type Qualified Code(s): M86.9 - Osteomyelitis, unspecified Code(s): M86.9 - Osteomyelitis, unspecified Status: Acute Assessment and Plan: * see #3 (5) Hypertension: Code(s): I10 - Essential (primary) hypertension Status: Chronic Assessment and Plan: * Systolic running 140s and 150s last 24hours. * On amlodipine 10, carvedilol 12.5, lisinopril 40 (in the evening because if you take it in the morning before dialysis it will filter out). * dialysis may help to some degree with fluid removal (6) Anemia: Code(s): D64.9 - Anemia, unspecified Status: Chronic Assessment and Plan: * due to ESRD and acute illness * Epogen with HD * hemoglobin 10.7 today (7) Diabetes mellitus: Code(s): E11.9 - Type 2 diabetes mellitus without complications Status: Chronic Assessment and Plan: * follow accu-cheks * glycemic control per hospitalists Subjective Date/time seen: 05/23/24 10:36 Interval history: care a feels better. Shoulder feels a little bit better. She did get a pain pill this morning Exam Narrative: General: well-developed well-nourished female in NAD Heart: normal S1 and S2; no rub Lungs: clear Abdomen: obese but soft, nontender, nondistended, positive bowel sounds Extremities: no cyanosis or clubbing; s/p left AKA Skin: No rash Objective Data Vital Signs Vital Signs: Vital Signs - 24 hr 05/22/24 10:45 05/22/24 11:00 05/22/24 11:15 Temperature Pulse Rate 93 93 98 Respiratory Rate Blood Pressure 160/100 H 139/98 H 136/109 H Pulse Oximetry Oxygen Delivery 05/22/24 11:30 05/22/24 11:45 05/22/24 12:00 Temperature Pulse Rate 93 94 94 Respiratory Rate Blood Pressure 146/89 H 166/98 H 155/97 H Pulse Oximetry Oxygen Delivery
--- NOTE | 2024-05-23 10:36 | PM.PNNEP ---
Progress Note: A&P Assessment and Plan (1) End stage renal disease: Code(s): N18.6 - End stage renal disease Status: Chronic Assessment and Plan: HD will be on Friday volume status looks okay. No shortness of breath or swelling. Potassium and bicarbonate are good. BUN is fine at 30. will check labs tomorrow (2) Hyperkalemia: Code(s): E87.5 - Hyperkalemia Status: Acute Assessment and Plan: resolved (3) Septic arthritis: Qualifiers: Septic arthritis location: shoulder Septic arthritis organism: due to other bacteria Laterality: left Qualified Code(s): M00.812 - Arthritis due to other bacteria, left shoulder Code(s): M00.9 - Pyogenic arthritis, unspecified Status: Acute Assessment and Plan: as noted by admission imaging: X-ray of left shoulder negative CT of left shoulder with large complex left subacromial/subdeltoid and subcoracoid bursal fluid collection measuring 10.7 cm x 6.5 cm with associated osteolysis at the coracoid process and undersurface of the acromion consistent with septic bursitis and associated osteomyelitis both of which have progressed since 02/22/2024 on broad spectrum antibiotics pain control Ortho following. Considering hospital transfer (4) Osteomyelitis of shoulder, left: Qualifiers: Osteomyelitis type: unspecified type Qualified Code(s): M86.9 - Osteomyelitis, unspecified Code(s): M86.9 - Osteomyelitis, unspecified Status: Acute Assessment and Plan: see #3 (5) Hypertension: Code(s): I10 - Essential (primary) hypertension Status: Chronic Assessment and Plan: Systolic running 140s and 150s last 24hours. On amlodipine 10, carvedilol 12.5, lisinopril 40 (in the evening because if you take it in the morning before dialysis it will filter out). dialysis may help to some degree with fluid removal (6) Anemia: Code(s): D64.9 - Anemia, unspecified Status: Chronic Assessment and Plan: due to ESRD and acute illness Epogen with HD hemoglobin 10.7 today (7) Diabetes mellitus: Code(s): E11.9 - Type 2 diabetes mellitus without complications Status: Chronic Assessment and Plan: follow accu-cheks glycemic control per hospitalists Subjective Date/time seen: 05/23/24 10:36 Interval history: care a feels better. Shoulder feels a little bit better. She did get a pain pill this morning Exam Narrative: General: well-developed well-nourished female in NAD Heart: normal S1 and S2; no rub Lungs: clear Abdomen: obese but soft, nontender, nondistended, positive bowel sounds Extremities: no cyanosis or clubbing; s/p left AKA Skin: No rash Objective Data Vital Signs Vital Signs: Vital Signs - 24 hr 05/22/24 10:45 05/22/24 11:00 05/22/24 11:15 Temperature Pulse Rate 93 93 98 Respiratory Rate Blood Pressure 160/100 H 139/98 H 136/109 H Pulse Oximetry Oxygen Delivery 05/22/24 11:30 05/22/24 11:45 05/22/24 12:00 Temperature Pulse Rate 93 94 94 Respiratory Rate Blood Pressure 146/89 H 166/98 H 155/97 H Pulse Oximetry Oxygen Delivery 05/22/24 12:15 05/22/24 12:30 05/22/24 12:44 Temperature Pulse Rate 92 92 92 Respiratory Rate Blood Pressure 155/92 H 141/89 H 147/87 H Pulse Oximetry Oxygen Delivery 05/22/24 12:53 05/22/24 13:40 05/22/24 16:00 Temperature 98.2 F 98.0 F Pulse Rate 94 96 88 Respiratory Rate 18 18 Blood Pressure 149/81 H 120/65 Pulse Oximetry 88 L Oxygen Delivery 05/22/24 20:46 05/22/24 20:54 05/22/24 20:00 Temperature 98 F Pulse Rate 85 82 Respiratory Rate 16 Blood Pressure 149/85 H Pulse Oximetry 99 Oxygen Delivery Room Air 05/23/24 05:41 05/23/24 08:32 05/23/24 08:30 Temperature 97 F L Pulse Rate 80 80 Respiratory Rate 18 Blood Pressure 150/83 H Pulse Oximetry
[2024-05-23 11:48] LABS: Glucose Point of Care 204 mg/dl (65-105)
[2024-05-23] MEDS: INSULIN ASPART (*BKC) 100 UNITS/ML SUB-Q ×2 (12:06→17:03)
[2024-05-23] MEDS: CEFEPIME 1 GM/NS 50 ML 1 GM/50 ML BAG IVPB (14:16)
--- NOTE | 2024-05-23 15:54 | PM.IMPN ---
Progress Note: A&P Assessment and Plan (1) Osteomyelitis of shoulder, left: Qualifiers: Osteomyelitis type: unspecified type Qualified Code(s): M86.9 - Osteomyelitis, unspecified Code(s): M86.9 - Osteomyelitis, unspecified Status: Acute (2) Septic arthritis: Qualifiers: Septic arthritis location: shoulder Septic arthritis organism: due to other bacteria Laterality: left Qualified Code(s): M00.812 - Arthritis due to other bacteria, left shoulder Code(s): M00.9 - Pyogenic arthritis, unspecified Status: Acute (3) End stage renal disease: Code(s): N18.6 - End stage renal disease Status: Chronic (4) CHF (congestive heart failure): Qualifiers: Heart failure chronicity: acute on chronic Heart failure type: unspecified Qualified Code(s): I50.9 - Heart failure, unspecified Code(s): I50.9 - Heart failure, unspecified Status: Chronic (5) Hypertension: Code(s): I10 - Essential (primary) hypertension Status: Chronic (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 Orthopedic surgery consultation is greatly appreciated. On 05/21 Dr. Gates perform left shoulder aspiration yielding 145 cc of cloudy serosanguineous fluid. Pending culture results. Patient did well, now reports better pain and less edema. Patient is still waiting for bed at [facility]. [facility] and [facility] refused. Accepted at [facility]. Continue cefepime and vancomycin. Continue p.r.n. pain control. Continue Accu-Cheks and insulin sliding scale. Continue dialysis per Nephrology schedule. Continue to monitor blood pressure. Full code. Heparin subQ No GI prophylaxis indicated Peripheral IV, indwelling right-sided tunneled dialysis catheter on the chest wall Subjective Date/time seen: 05/23/24 15:54 Interval history: No major acute overnight events. Patient reports pain is controlled with p.r.n. medications. Review of Systems Review of Systems: All systems reviewed & are unremarkable except as noted in HPI and below (Subjective) Exam Narrative: Left shoulder edema greatly improved. No erythema or open wounds. Chest, Right-sided tunneled dialysis catheter. Const: General: comfortable and no acute distress Neck: Neck: supple Resp: Effort & Inspection: normal respiratory effort Auscultation: clear to auscultation bilaterally Cardio: Rate: regular rate Rhythm: regular rhythm GI: GI Palp: Yes Soft to palpation and No Tenderness to palpation present (GI) Neuro: Other: No focal deficits Extrem: General: no edema Psych: Mental Status: mental status grossly normal Objective Data Vital Signs Vital Signs: Vital Signs - 24 hr 05/22/24 16:00 05/22/24 20:46 05/22/24 20:54 Temperature 98.0 F 98 F Pulse Rate 88 85 82 Respiratory Rate 18 16 Blood Pressure 120/65 149/85 H Pulse Oximetry 88 L 99 Oxygen Delivery 05/22/24 20:00 05/23/24 05:41 05/23/24 08:32 Temperature 97 F L Pulse Rate 80 80 Respiratory Rate 18 Blood Pressure 150/83 H Pulse Oximetry 96 Oxygen Delivery Room Air 05/23/24 08:30 Temperature Pulse Rate Respiratory Rate Blood Pressure Pulse Oximetry 97 Oxygen Delivery Room Air Intake/Output Intake/Output: Intake & Output 05/20/24 05/21/24 05/22/24 05/23/24 23:59 23:59 23:59 23:59 Intake Total 1290 1110 2770 1380 Output Total 2600 1000 3600 Balance -1310 110 -830 1380 Meds/Results Medications: Active Medications Generic Name Dose Route Start Last Admin Trade Name Freq PRN Reason Stop Dose Admin Acetaminophen 650 mg 05/16/24 02:37 Acetaminophen 325 Mg Tablet PO Q4H PRN Mild Pain (1-3) or Fever Hydrocodone Bitart/Acetaminophen
[2024-05-23 16:00] VITALS: BP 145/67; PULSE 98; RESP 18; TEMP 37.2; O2SAT 96
[2024-05-23 16:54] LABS: Glucose Point of Care 326 mg/dl (65-105)
[2024-05-23] MEDS: lisinopriL 20 MG TABLET 40 MG PO (17:03)
--- NOTE | 2024-05-23 18:39 | PC.NURSE ---
Patient accepted at [facility]. Patient blind and unable to sign consent herself. This RN and rn relief charge Christiana Wynne explained risks and benefits of transfer and received verbal consent from patient.
--- NOTE | 2024-05-24 09:17 | PM.TDS ---
Transfer Discharge Sum: Prov Provider Date of admission: 05/17/24 16:16 Primary care physician: Cherise Patrick, PA Admitting clinician: Cortney Schwarz MD Attending physician on admission: Cortney Schwarz Consults: 05/16/24 06:02 Consult to Physician Routine Comment: Consulting Provider: Lars Millan Reason for consultation: dialysis, hyperkalemia Has provider been notified: Yes 05/20/24 Consult to Physician Routine Comment: spoke to office @0807 (,us) Consulting Provider: Casa Gates trailer technician/MD group to consult: consult Reason for consultation: septic bursitis Has provider been notified: Yes Attending physician on discharge: Yuli Alvarado Discharging clinician: Yuli Alvarado Anticipated date of transfer: 05/23/24 Receiving physician/facility: [facility] DS: Admitting Diagnosis Discharge Date 05/23/24 Admitting Diagnosis left shoulder pain DS: Discharge Diagnosis Discharge Diagnosis (1) Septic arthritis of shoulder, left: Qualifiers: Septic arthritis organism: staphylococcal Qualified Code(s): M00.012 - Staphylococcal arthritis, left shoulder Code(s): M00.9 - Pyogenic arthritis, unspecified Status: Acute (2) Osteomyelitis of shoulder, left: Qualifiers: Osteomyelitis type: unspecified type Qualified Code(s): M86.9 - Osteomyelitis, unspecified Code(s): M86.9 - Osteomyelitis, unspecified Status: Acute Transfer Discharge Sum: Med Medications Active and Home Medications: Home Medications amlodipine 10 mg tablet 10 mg PO DAILY 08/04/23 [History Confirmed 05/16/24] carvedilol 12.5 mg tablet 12.5 mg PO BID 08/04/23 [History Confirmed 05/16/24] insulin lispro 100 unit/mL subcutaneous solution See Rx Instructions .Route .COMPLEX 08/04/23 [History Confirmed 05/16/24] nystatin 100,000 unit/gram topical powder 1 applic topical PRN PRN Skin Irritation 08/04/23 [History Confirmed 05/16/24] ondansetron 4 mg disintegrating tablet 4 mg PO Q6H PRN Nausea And Vomiting 08/05/23 [History Confirmed 05/16/24] lisinopril 20 mg tablet 20 mg PO QAM 30 days #30 tabs 08/23/23 [Rx Confirmed 05/16/24] bisacodyl 10 mg rectal suppository 10 mg RECTAL DAILY PRN Constipation 02/16/24 [History Confirmed 05/16/24] cyclobenzaprine 10 mg tablet 10 mg PO Q8H PRN muscle spasm 02/16/24 [History Confirmed 05/16/24] loperamide 2 mg capsule 2 mg PO Q8H PRN Diarrhea 02/16/24 [History Confirmed 05/16/24] magnesium citrate (Citroma oral solution) 300 ml PO DAILY PRN Constipation 02/16/24 [History Confirmed 05/16/24] tramadol 50 mg tablet 50 mg PO Q6H PRN Moderate Pain (Scale Score 5-6) 02/16/24 [History Confirmed 05/16/24] acetaminophen 500 mg tablet 500 mg PO Q6H PRN Pain, Mild 05/16/24 [History Confirmed 05/16/24] diclofenac sodium 1 % topical gel (Voltaren Arthritis Pain) 4 g topical Q12H PRN Pain 05/16/24 [History Confirmed 05/16/24] diphenhydramine HCl 25 mg capsule 25 mg PO Q8H PRN Itching 05/16/24 [History Confirmed 05/16/24] furosemide 40 mg tablet 40 mg PO QMWF 05/16/24 [History Confirmed 05/16/24] gabapentin 100 mg capsule 100 mg PO TID 05/16/24 [History Confirmed 05/16/24] gentamicin 0.1 % topical ointment 1 applic topical DAILY 05/16/24 [History Confirmed 05/16/24] gentamicin 0.1 % topical ointment 1 applic topical PRN PRN Wound Care 05/16/24 [History Confirmed 05/16/24] glucagon 1 mg injection kit 1 mg IM PRN PRN Hypoglycemia 05/16/24 [History Confirmed 05/16/24] melatonin 3 mg tablet 3 mg PO HS PRN Insomnia 05/16/24 [History Confirmed 05/16/24] ondansetron 4 mg disintegrating tablet 4 mg PO TID 05/16/24 [History Confirmed 05/16/24] pentoxifylline 400 mg tablet,extended release 400 mg PO DAILY 05/16/24 [History Confirmed 05/20/24] polyethylene glycol 3350 17 gram oral powder packet 17 g PO DAILY 05/16/24 [History Confirmed 05/16/24] sennosides 8.6 mg-docusate sodium 50 mg tablet 1 tab-cap PO DAILY 05/16/24 [History Confirmed 05/16/24] sevelamer HCl 800 mg tablet 800 mg
[2024-05-26 19:29] LABS: Total Protein Synovial Fluid 5.4 g/dL (1.0-3.0)
[2024-05-27 15:18] LABS: Glucose Synovial Fluid 136 mg/dL
== END 2024-05-23 20:00 | disposition short-term general hospital (02) | DRG 344 ==
LOC: ANHED 05-16 06:02 → ANHIMU 05-16 07:01 → ANH3MEDSUR 05-17 18:09
PROVIDERS: Internal Medicine Nephrology; Nurse Practitioner Acute Care; Orthopaedic Surgery; Admitting Provider Internal Medicine; Emergency Provider Emergency Medicine; PCP Physician Assistant; Visit Provider General Practice
DX: M86.112 Other acute osteomyelitis, left shoulder (principal); M00.012 Staphylococcal arthritis, left shoulder; M71.112 Other infective bursitis, left shoulder; E11.42 Type 2 diabetes mellitus with diabetic polyneuropathy; I13.2 Hypertensive heart and chronic kidney disease with heart failure and with stage 5 chronic kidney disease, or end stage renal disease; E11.22 Type 2 diabetes mellitus with diabetic chronic kidney disease; N18.6 End stage renal disease; I50.32 Chronic diastolic (congestive) heart failure; E87.5 Hyperkalemia; D63.1 Anemia in chronic kidney disease; E78.5 Hyperlipidemia, unspecified; H40.9 Unspecified glaucoma; H54.8 Legal blindness, as defined in USA; L89.619 Pressure ulcer of right heel, unspecified stage; Z99.2 Dependence on renal dialysis; Z89.512 Acquired absence of left leg below knee; Z79.4 Long term (current) use of insulin
CPT/HCPCS: 36415; 71045; 73030; 73200; 80048; 80053; 80069; 80202; 82565; 82945; 82948; 83036; 83735; 84100; 84157; 84484; 85025; 85027; 85652; 86140; 86706; 87040; 87070; 87075; 87205; 87340; 87641; 89051; 89060; 93005; 94640; 96365; 96366; 96367; 96368; 96374; 96375; 99285; A9270; G0257; G0378; G0379; J0612; J0692; J1170; J1644; J1815; J1940; J2270; J3370; J7030; P9047; Q5105

== ENCOUNTER 2024-07-25 11:38 | Emergency (ER) | payer OTHER, SELFPAY ==
--- NOTE | ~2024-07-25 | CT_ITS ---
EXAMINATION: CT chest abdomen pelvis wo con DATE: 07/25/2024 16:40 INDICATION: Sepsis TECHNIQUE: Computed tomography (CT) of the chest was performed without intravenous contrast. Automate d exposure control and iterative reconstruction technique were employed. Exam dose: 1851.49 mGy-cm t otal exam DLP. COMPARISON: 05/20/2024 portable AP chest FINDINGS: Right internal jugular catheter with tip at the upper right atrium. There are multiple scattered bilateral pulmonary infiltrates, most prominent involvement of the lower lobes and left upper lobe and to a lesser extent right upper lobe. The findings suggest extensive bi lateral pneumonia. Cardiomegaly. No pericardial or pleural effusion. There is mild used to lymphadenopathy, likely reactive. No pericardial or pleural effusion. The liver, gallbladder, spleen, pancreas and adrenal glands are unremarkable. There is apparent contrast material within nondilated bilateral renal collecting systems.. No renal mass lesion. No ureteral calculus or hydroureteronephrosis. The urinary bladder, uterus and adnexal areas are unremarkable. Normal caliber of the abdominal aorta. There is atherosclerotic calcification of the superior inferio r mesenteric arteries. No intraperitoneal or retroperitoneal or pelvic mass lesion or adenopathy or ascites. Normal appendix. No bowel obstruction versus a prominent amount of fecal material in the rectum and c olon. No intraperitoneal free air. Approximately 1.4 cm wide 2 cm deep fat-containing umbilical hernia. Shotty bilateral inguinal lymph nodes. Transitional lumbosacral vertebra. No suspicious osteolytic or osteoblastic lesions. IMPRESSION: Bilateral pulmonary infiltrates suggesting bilateral pneumonia Cardiomegaly Normal appendix Reviewed, dictated and finalized at [facility]. Reviewed, dictated and finalized at [facility].
--- NOTE | ~2024-07-25 | XR_ITS ---
EXAMINATION: XR shoulder RT min 2V DATE: 07/25/2024 12:07 INDICATION: Right shoulder pain. TECHNIQUE: 4 views of right shoulder were obtained. COMPARISON: Right shoulder radiographs 02/22/2024 FINDINGS: Alignment is normal. No fracture. There is mild osteoarthritis of acromioclavicular joint. Glenohumeral joint is normal. A right internal jugular central venous catheter is seen with tip at th e superior cavoatrial junction. IMPRESSION: 1. Mild osteoarthritis of acromioclavicular joint. Reviewed, dictated and finalized at [facility].
--- NOTE | ~2024-07-25 | CT_ITS ---
CT shoulder RT w con DATE: 07/25/2024 14:41 INDICATION: Right shoulder pain. TECHNIQUE: High-resolution computed tomography of the right shoulder was performed without intravenou s contrast material. Sagittal and coronal reconstructions. Automated exposure control and iterative reconstruction technique were employed. Exam dose: 512.54 mGy-cm total exam DLP. COMPARISON: 02/22/2024 right shoulder FINDINGS: There are multiple erosions of the right humeral head, including an approximately 8.6 x 10. 4 mm erosion at the superomedial aspect of the humeral head, with smaller erosions containing along t he margin of the humeral head. There is a much larger up to 17.5 x 19 mm x 28 mm vertical punched out erosion of the superolateral aspect of the humeral head and greater tuberosity, with some overhangin g margins. The right acromioclavicular joint appears mildly widened, with mild irregularity of the lateral clavi cular articular margin. There is erosive change along the superolateral margin of the right glenoid coracoid process as well. There is soft tissue thickening of the right shoulder capsule and right shoulder effusion. No fracture or dislocation of the right shoulder or included right ribs is noted. Extensive bilateral pulmonary interstitial infiltrates and/or fibrotic change are noted but lung wind ows are not well demonstrated on this examination. Considerations in the differential diagnosis for t he shoulder findings and lung findings would include tuberculosis, rheumatoid lung with associated ar ticular erosions. Other infectious processes should be considered. Also included in the differential diagnosis would be gout, considering the punched out prominent eros ions. Osteomyelitis is a consideration as well. IMPRESSION: Prominent erosive changes of the right humeral head and greater tuberosity, as well as th e right coracoid process, prominent thickening of the shoulder capsule, right shoulder effusion Extensive pulmonary abnormalities. Differential diagnosis is given above. Reviewed, dictated and finalized at [facility]. Reviewed, dictated and finalized at [facility]. IMPRESSION: Prominent erosive changes of the right humeral head and greater tub erosity, as well as the right coracoid process, prominent thickening of the agustin ulder capsule, right shoulder effusion Extensive pulmonary abnormalities. Differential diagnosis is given above.
[2024-07-25 11:44] VITALS: BP 116/82; PULSE 88; RESP 18; TEMP 36.7; O2SAT 99
[2024-07-25 13:22] VITALS: BP 143/76; PULSE 82; RESP 18; TEMP 37.2; O2SAT 96
--- NOTE | 2024-07-25 13:26 | ECG_ITS ---
Test Date: 2024-07-25 14:46:54 Measurements Intervals [place] Rate: 82 P: 47 SD: 179 QRS: -3 QRSD: 92 T: 32 QT: 366 QTc: 429 Interpretive Statements SINUS RHYTHM NORMAL ECG Compared to ECG 05/18/2024 03:42:17 No significant changes Electronically Signed On 07-25-2024 19:28:33 CDT by Azar Cook D.O.
[2024-07-25 13:50] LABS: Fractional Inspired Oxygen 21 %; HCO3 VBG 19.3 mEq/l (24.0-30.0); PCO2 VBG 37.7 mmHg (42.0-48.0); PO2 VBG 30.5 mmHg (35.0-45.0); pH VBG 7.327 (7.300-7.400)
[2024-07-25 13:52] LABS: Device ROOM AIR
[2024-07-25 13:56] LABS: Glucose Point of Care 177 mg/dl (65-105)
[2024-07-25] MEDS: HYDROmorphone HCL INJ (*CRX) 1 MG/ML SYR IV PUSH ×3 (13:59→18:22)
--- NOTE | 2024-07-25 14:03 | PC.NURSE ---
patient declines straight cath at this time.
[2024-07-25 14:04] LABS: Basophils Percent Auto 0.3 % (0.2-1.2); Eosinophils Absolute Auto 0.4 K/mm3 (0-0.3); Hematocrit 33.4 % (37.0-47.0); Hemoglobin 10.3 g/dL (12.0-15.0); Immature Granulocyte Absolute 0.07 K/mm3 (0.00-0.031); Immature Granulocyte Percent A 0.5 % (0-0.5); Lymphocytes Percent Auto 18.5 % (18.3-44.2); Mean Corpuscular HGB Conc 30.8 g/dl (32-36); Mean Corpuscular Hemoglobin 29.5 pg (26-34); Mean Corpuscular Volume 95.7 fl (80-100); Mean Platelet Volume 9.9 fl (7.4-10.4); Monocytes Absolute Auto 2.6 K/mm3 (0.1-0.6); Monocytes Percent Auto 20.2 % (2.6-8.5); Neutrophils Absolute Auto 7.4 K/mm3 (1.3-6.7); Neutrophils Percent Auto 57.5 % (45.5-73.1); Platelet Count Result 255 k/mm3 (150-375); Red Blood Count 3.49 M/mm3 (4.2-5.4); Red Cell Distribution Width 13.7 % (11.5-14.5); White Blood Count 12.9 K/mm3 (4.5-10.0)
[2024-07-25 14:16] LABS: Lactic Acid Reflex 0.6 mmol/L (0.7-2.0)
[2024-07-25 14:18] LABS: Alanine Aminotransferase 30 U/L (6-35); Albumin Level 3.2 g/dL (3.5-5.1); Alkaline Phosphatase 185 U/L (38-126); Anion Gap 11 mmol/L (4-12); Aspartate Amino Transferase 20 U/L (14-36); Bilirubin,Total 0.6 mg/dL (0.2-1.3); Blood Urea Nitrogen 34 mg/dL (7-17); Calcium 7.7 mg/dL (8.4-10.2); Carbon Dioxide 19 mmol/L (22-30); Chloride 101 mmol/L (98-107); Estimated CRCL calculation 14 ml/min; Estimated Glomerular Filt Rate 8; Glucose 171 mg/dL (65-110); INR 1.3; Lipase 25 U/L (23-300); Magnesium 1.9 mg/dL (1.6-2.3); Potassium 4.6 mmol/L (3.4-5.0); Prothrombin Time 16.1 Seconds (11.1-14.7); Sodium 131 mmol/L (137-145)
[2024-07-25 14:42] LABS: CRP 29.4 mg/dL (<1.0)
[2024-07-25 14:45] LABS: Erythrocyte Sedimentation Rate 90 mm/hr (0-20)
[2024-07-25 15:39] LABS: Immature Reticulocyte Fraction 12.4 % (3.0-15.9); Reticulocyte Hemoglobin Conten 24.2 pg (28.2-36.6); Reticulocyte Percent 1.12 % (0.7-4.3); Reticulocytes Absolute 0.04 10^6/uL (0.02-0.10)
[2024-07-25] MEDS: SODIUM CHLORIDE 0.9% IV 1,000 ML 999 ML IV CONT (15:45)
[2024-07-25 15:50] VITALS: BP 110/63; PULSE 84; RESP 19; O2SAT 99
--- NOTE | 2024-07-25 15:52 | PC.NURSE ---
MD at bedside to tap patient's left shoulder.
[2024-07-25] MEDS: CEFEPIME 1 GM/NS 50 ML 1 GM/50 ML BAG IVPB (16:54)
--- NOTE | 2024-07-25 17:34 | ED.GENADULT ---
HPI - General Adult General Chief complaint: Extremity Injury, Upper Stated complaint: right shoulder pain Time Seen by Provider: 07/25/24 12:43 History of Present Illness HPI narrative: This is a 33-year-old female with history of sickle cell disease, and septic joints presenting with right shoulder pain. Patient says that she has been having shoulder pain for the last several days. She typically takes [place] which provides her some relief but is no longer providing her any relief. She has significant pain w/ active and passive range of motion. She has also developed subjective fever and chills. Patient says that she has shortness of breath. Denies chest pain or abdominal pain. No nausea vomiting diarrhea Related Data Home Medications Medication Instructions Recorded Confirmed amlodipine 10 mg tablet 10 mg PO DAILY 08/04/23 05/16/24 carvedilol 12.5 mg tablet 12.5 mg PO BID 08/04/23 05/16/24 insulin lispro 100 unit/mL See Rx Instructions .Route .COMPLEX 08/04/23 05/16/24 subcutaneous solution nystatin 100,000 unit/gram topical 1 applic topical PRN PRN Skin 08/04/23 05/16/24 powder Irritation ondansetron 4 mg disintegrating 4 mg PO Q6H PRN Nausea And Vomiting 08/05/23 05/16/24 tablet bisacodyl 10 mg rectal suppository 10 mg RECTAL DAILY PRN Constipation 02/16/24 05/16/24 cyclobenzaprine 10 mg tablet 10 mg PO Q8H PRN muscle spasm 02/16/24 05/16/24 loperamide 2 mg capsule 2 mg PO Q8H PRN Diarrhea 02/16/24 05/16/24 magnesium citrate (Citroma oral 300 ml PO DAILY PRN Constipation 02/16/24 05/16/24 solution) tramadol 50 mg tablet 50 mg PO Q6H PRN Moderate Pain 02/16/24 05/16/24 (Scale Score 5-6) acetaminophen 500 mg tablet 500 mg PO Q6H PRN Pain, Mild 05/16/24 05/16/24 diclofenac sodium 1 % topical gel 4 g topical Q12H PRN Pain 05/16/24 05/16/24 (Voltaren Arthritis Pain) diphenhydramine HCl 25 mg capsule 25 mg PO Q8H PRN Itching 05/16/24 05/16/24 furosemide 40 mg tablet 40 mg PO QMWF 05/16/24 05/16/24 gabapentin 100 mg capsule 100 mg PO TID 05/16/24 05/16/24 gentamicin 0.1 % topical ointment 1 applic topical DAILY 05/16/24 05/16/24 gentamicin 0.1 % topical ointment 1 applic topical PRN PRN Wound Care 05/16/24 05/16/24 glucagon 1 mg injection kit 1 mg IM PRN PRN Hypoglycemia 05/16/24 05/16/24 melatonin 3 mg tablet 3 mg PO HS PRN Insomnia 05/16/24 05/16/24 ondansetron 4 mg disintegrating 4 mg PO TID 05/16/24 05/16/24 tablet pentoxifylline 400 mg 400 mg PO DAILY 05/16/24 05/20/24 tablet,extended release polyethylene glycol 3350 17 gram 17 g PO DAILY 05/16/24 05/16/24 oral powder packet sennosides 8.6 mg-docusate sodium 1 tab-cap PO DAILY 05/16/24 05/16/24 50 mg tablet sevelamer HCl 800 mg tablet 800 mg PO TID 05/16/24 05/16/24 sodium phosphates 19 gram-7 197 ml RECTAL PRN PRN Constipation 05/16/24 05/16/24 gram/118 mL enema (Fleet Enema) vitamin B complex and vitamin C 1 cap PO DAILY 05/16/24 05/16/24 no.20-folic acid 1 mg capsule Allergies Allergy/AdvReac Type Severity Reaction Status Date / Time No Known Allergies Allergy Verified 07/25/24 11:48 [facility] Past Medical History Medical History (Updated 07/25/24 @ 18:39 by Tobi Roblero MD) Anemia in chronic kidney disease Blind in both eyes (~03/2023) Occurred acutely March 2023 CHF (congestive heart failure) Chronic heel ulcer Chronic heel ulcer on the left foot developed November 2022 with acute decompensation and subsequent above the knee amputation, no unfortunately do developed a right heel ulcer the fall of 2022 that is been persistent Diabetes mellitus Diabetic nephropathy with proteinuria Nephrotic range Diabetic neuropathy Diastolic heart failure secondary to hypertension EF 70% with grade 2 diastolic dysfunction echocardiogram August 2023 End-stage renal disease on hemodialysis Hemodialysis initiated August 2023 Glaucoma Hyperlipidemia Hypertension Nephrotic syndrome Septic arthritis of shoulder, left Surgical History Surgical
[2024-07-25] MEDS: VANCOMYCIN 2,000 MG/NS 500 ML 2,000 MG/500 ML BAG 250 MG IVPB (17:59)
[2024-07-25] MEDS: AZITHROMYCIN 500 MG/NS 250 ML 500 MG/250 ML BAG 250 MG IVPB (18:23)
[2024-07-25 18:29] VITALS: BP 104/71; PULSE 84; RESP 19; O2SAT 98
[2024-07-25 18:30] LABS: Source Synovial Fluid Rt Shoulder Syn Flui
[2024-07-25 18:31] LABS: Appearance Synovial Fluid Cloudy (Clear); Color Synovial Fluid Red (Colorless)
[2024-07-25 18:32] LABS: Lymphocytes Synovial Fluid 2 %; Neutrophils Synovial Fluid 92 % (0-25)
[2024-07-25 18:33] LABS: Macrophages Synovial Fluid 6 %
[2024-07-25 18:43] LABS: Crystals Synovial Fluid None Seen (None Seen)
--- NOTE | 2024-07-26 01:57 | PC.NURSE ---
ON 07/25/2024 AT 1921 LAB PERSONNEL NOTIFIED THIS RN OF RESULTS OF RIGHT SHOULDER SYNOVIAL FLUID GRAM STAIN RESULTED WITH GRAM POSITIVE COCCI IN CLUSTERS SEEN AND MANY WHITE BLOOD CELLS SEEN. THIS PT HAD ALREADY LEFT TO BE TRANSFERRED TO [facility] ([facility]) AT THIS TIME. THIS RN CALLED [facility] AND SPOKE WITH A NURSE WHO GAVE FAX # OF NAD A PHONE # OF . THIS INFO WAS FAXED TO NURSE STRAUSS AT 2075. ROMANA SAMUEL AT [facility] CONFIRMED RECEIPT OF THIS FAX AT [phone] VIA TELEPHONE.
[2024-07-30 11:34] LABS: Glucose Synovial Fluid 54 mg/dL; Total Protein Synovial Fluid 5.4 g/dL (1.0-3.0)
== END 2024-07-25 19:19 | disposition short-term general hospital (02) ==
PROVIDERS: Emergency Provider Emergency Medicine; PCP Physician Assistant
DX: M00.9 Pyogenic arthritis, unspecified (principal); J18.9 Pneumonia, unspecified organism; J96.91 Respiratory failure, unspecified with hypoxia; E11.22 Type 2 diabetes mellitus with diabetic chronic kidney disease; I13.2 Hypertensive heart and chronic kidney disease with heart failure and with stage 5 chronic kidney disease, or end stage renal disease; N18.6 End stage renal disease; I50.30 Unspecified diastolic (congestive) heart failure; D63.1 Anemia in chronic kidney disease; Z99.2 Dependence on renal dialysis; E11.39 Type 2 diabetes mellitus with other diabetic ophthalmic complication; H42 Glaucoma in diseases classified elsewhere; E11.40 Type 2 diabetes mellitus with diabetic neuropathy, unspecified; E11.21 Type 2 diabetes mellitus with diabetic nephropathy; E78.5 Hyperlipidemia, unspecified; Z89.612 Acquired absence of left leg above knee; Z79.4 Long term (current) use of insulin; Z79.899 Other long term (current) drug therapy; M19.011 Primary osteoarthritis, right shoulder; I51.7 Cardiomegaly
CPT/HCPCS: 20610; 36415; 71250; 73030; 73201; 74176; 80053; 82803; 82945; 82948; 83605; 83690; 83735; 84157; 85025; 85046; 85610; 85652; 85730; 86140; 87040; 87070; 87075; 87077; 87181; 87205; 89051; 89060; 93005; 96361; 96365; 96367; 96375; 96376; 99285; J0456; J0692; J1170; J3370; J7030; Q9967

== ENCOUNTER 2024-08-25 18:51 | Emergency (ER) | payer OTHER, SELFPAY ==
--- NOTE | ~2024-08-25 | XR_ITS ---
EXAMINATION: XR chest 1V portable DATE: 08/25/2024 19:22 INDICATION: Mid chest pain TECHNIQUE: frontal view of the chest was obtained. COMPARISON: Chest radiograph dated 05/20/[address] dated 07/25/2024 FINDINGS: Large-bore dual-lumen left internal jugular central venous catheter with distal tip in the right atri um. The lungs are clear with no focal airspace opacities, pulmonary edema, pleural effusion or pneumo thorax. Cardiomegaly. Large erosion at the right humeral head which was present at the time of the ea rlier CT consistent with osteomyelitis secondary to septic arthritis. IMPRESSION: 1. Cardiomegaly. No acute cardiopulmonary disease. 2. Chronic erosion of the right humeral head consistent with prior septic arthritis and osteomyelitis . Reviewed, dictated and finalized at location A. IMPRESSION: 1. Cardiomegaly. No acute cardiopulmonary disease. 2. Chronic erosion of the right humeral head consistent with prior septic arthr itis and osteomyelitis.
--- NOTE | ~2024-08-25 | CT_ITS ---
EXAMINATION: CTA chest DATE: 08/25/2024 22:54 INDICATION: Chest and back pain TECHNIQUE: Computed tomographic angiography (CTA) of the chest was performed without and with 100 mL Omnipaque-350 intravenous contrast. Volume-rendered 3D-reconstructions of the aorta and large arterie s were constructed by the technologist on a separate workstation. Automated exposure control and iter ative reconstruction technique were employed. The dose-length product was 1090.19 mGy-cm. COMPARISON: 07/25/2024 FINDINGS: Chronic reticulonodular opacities in the bilateral upper lobes and lingula and minimally in the bilat eral lower lobes without significant change since 01/14/2024, likely sequela of chronic infection. No new opacities to suggest acute pneumonia. No pulmonary edema or pleural effusion. Heart size is dm l. No pericardial effusion. Large-bore dual-lumen tunneled left internal jugular central venous likel y dialysis catheter with distal tip at the high right atrium. Thoracic aorta is normal in caliber wit h no dissection. Although not performed as a dedicated pulmonary and possible protocol there is good contrast opacification of the pulmonary arteries demonstrating no pulmonary collision. No pathologica lly enlarged thoracic lymphadenopathy. Large chronic erosion of the right humeral head likely related to prior septic arthritis. There is lo w-density moderate-sized joint effusion and/or synovitis surrounding the right glenohumeral joint and could not exclude recurrent infection. There is 5.8 x 4.6 x 4.0 cm loculated collection of likely co mplex fluid and gas in the soft tissues anterior to the right shoulder which appears to involve the a nterior deltoid muscle and superior aspect of the pectoralis major muscle which is concerning for inf ection. There appears be a small lobular extension of the collection which extends through the muscle to near the skin surface. No more remote extension of the soft tissue gas to suggest necrotizing fas ciitis. There is a small amount of fluid in the left subdeltoid bursa. Chronic erosions along the undersurfac e of the left acromion as well as of the left coracoid process with still ununited fracture across th e thickened coracoid process. There are mildly prominent but still normal-sized right axillary and liu bpectoral lymph nodes which are likely reactive. There is a 2.3 cm hypodense lesion in the spleen which appears likely chronic and subtly present on e arlier studies dated 02/16/2024 and 08/04/2023 over both the prior studies were more limited due to lat er phase of contrast. Visualized upper abdomen is otherwise unremarkable. IMPRESSION: 1. Chronic geographic regions of reticulonodular opacities in both lungs likely sequela of chronic in fection. No acute cardiopulmonary disease. 2. Change in chronic septic arthritis and osteomyelitis at the bilateral shoulders. There is moderate amount of fluid and/or synovitis at the right glenohumeral joint raising concern for persistent sept ic arthritis along with a 5.8 x 4.6 x 4.0 cm likely collection likely complex fluid and gas anterior to the right shoulder involving the anterior deltoid and superficial pectoralis major muscles also co ncerning for ongoing infection. Finally there is a small amount of fluid in the left subdeltoid consi stent with bursitis either septic or aseptic. 3. Indeterminate 2.3 cm hypodense lesion in the spleen which appears to been present dating [place] prior most likely related to either granulomatous disease or hemangioma. Reviewed, dictated and finalized at location A. IMPRESSION: 1. Chronic geographic regions of reticulonodular opacities in both lungs likely sequela of chronic infection. No acute cardiopulmonary disease. 2. Change in chronic septic arthritis and osteomyelitis at the bilateral should ers. There is moderate amount of fluid and/or synovitis at the right glenohumer al joint raising concern for persistent septic arthritis along with a 5.8 x 4.6 x 4.0 cm likely collection likely complex fluid and gas anterior to the right shoulder involving the anterior deltoid and superficial pectoralis major muscle s also concerning for ongoing infection. Finally there is a small amount of flu id in the left subdeltoid consistent with bursitis either septic or aseptic. 3. Indeterminate 2.3 cm hypodense lesion in the spleen which appears to been pr esent dating back at least one year prior most likely related to either granulo matous disease or hemangioma.
--- NOTE | 2024-08-25 18:52 | ECG_ITS ---
Test Date: 2024-08-25 19:03:31 Measurements Intervals [place] Rate: 93 P: 43 WI: 170 QRS: -22 QRSD: 88 T: 19 QT: 366 QTc: 457 Interpretive Statements SINUS RHYTHM POSSIBLE LEFT ATRIAL ENLARGEMENT [-0.1mV P-WAVE IN V1/V2] BORDERLINE LEFT AXIS DEVIATION [QRS AXIS < -20] POSSIBLE LEFT VENTRICULAR HYPERTROPHY [VOLTAGE CRITERIA PLUS LAE OR QRS WIDENING] Compared to ECG 07/25/2024 14:46:54 No significant changes Electronically Signed On 08-26-2024 09:38:50 CDT by Angely Galvez M.D.
[2024-08-25 18:56] VITALS: BP 202/112; PULSE 97; RESP 15; TEMP 36.4; O2SAT 100
--- NOTE | 2024-08-25 19:20 | ED_ITS ---
HPI - Chest Pain General Chief Complaint: Chest Pain Stated Complaint: chest pain/back pain Time Seen by Provider: 08/25/24 19:02 History of Present Illness HPI narrative: Patient is a 33-year-old female with pmh of ESRD on HD M/W/F presents to the emergency department this evening complaining of chest pain radiating to her back. Patient admits that she was slough earlier this month and was discharged on August 09 after she had orthopedic surgery for a right shoulder infection which she had cleaned out. Patient was placed on a blood thinner when she was discharged on August 09 as she had a clot in her right shoulder. Patient admits that she has not picked up this blood thinner and has not had along with the rest of her medications including her blood pressure medications since she was discharged home on 08/09. Patient went to slow today but due to long waiting times in the waiting room she decided to come here instead. Related Data Home Medications Medication Instructions Recorded Confirmed amlodipine 10 mg tablet 10 mg PO DAILY 08/04/23 05/16/24 carvedilol 12.5 mg tablet 12.5 mg PO BID 08/04/23 05/16/24 insulin lispro 100 unit/mL See Rx Instructions .Route .COMPLEX 08/04/23 05/16/24 subcutaneous solution nystatin 100,000 unit/gram topical 1 applic topical PRN PRN Skin 08/04/23 0 05/16/24 powder Irritation ondansetron 4 mg disintegrating 4 mg PO Q6H PRN Nausea And Vomiting 08/05/23 05/16/24 tablet bisacodyl 10 mg rectal suppository 10 mg RECTAL DAILY PRN Constipation 02/16/24 05/16/24 cyclobenzaprine 10 mg tablet 10 mg PO Q8H PRN muscle spasm 02/16/24 05/16/24 loperamide 2 mg capsule 2 mg PO Q8H PRN Diarrhea 02/16/24 05/16/24 magnesium citrate (Citroma oral 300 ml PO DAILY PRN Constipation 02/16/24 05/16/24 solution) tramadol 50 mg tablet 50 mg PO Q6H PRN Moderate Pain 02/16/24 05/16/24 (Scale Score 5-6) acetaminophen 500 mg tablet 500 mg PO Q6H PRN Pain, Mild 05/16/24 05/16/24 diclofenac sodium 1 % topical gel 4 g topical Q12H PRN Pain 05/16/24 05/16/24 (Voltaren Arthritis Pain) diphenhydramine HCl 25 mg capsule 25 mg PO Q8H PRN Itching 05/16/24 05/16/24 furosemide 40 mg tablet 40 mg PO QMWF 05/16/24 05/16/24 gabapentin 100 mg capsule 100 mg PO TID 05/16/24 05/16/24 gentamicin 0.1 % topical ointment 1 applic topical DAILY 05/16/24 05/16/24 gentamicin 0.1 % topical ointment 1 applic topical PRN PRN Wound Care 05/16/24 05/16/24 glucagon 1 mg injection kit 1 mg IM PRN PRN Hypoglycemia 05/16/24 05/16/24 melatonin 3 mg tablet 3 mg PO HS PRN Insomnia 05/16/24 05/16/24 ondansetron 4 mg disintegrating 4 mg PO TID 05/16/24 05/16/24 tablet pentoxifylline 400 mg 400 mg PO DAILY 05/16/24 05/20/24 tablet,extended release polyethylene glycol 3350 17 gram 17 g PO DAILY 05/16/24 05/16/24 oral powder packet sennosides 8.6 mg-docusate sodium 1 tab-cap PO DAILY 05/16/24 05/16/24 50 mg tablet sevelamer HCl 800 mg tablet 800 mg PO TID 05/16/24 05/16/24 sodium phosphates 19 gram-7 197 ml RECTAL PRN PRN Constipation 05/16/24 05/16/24 gram/118 mL enema (Fleet Enema) vitamin B complex and vitamin C 1 cap PO DAILY 05/16/24 05/16/24 no.20-folic acid 1 mg capsule Allergies Allergy/AdvReac Type Severity Reaction Status Date / Time No Known Allergies Allergy Verified 08/25/24 19:02 Review of Systems Review of Systems: All systems are reviewed and are negative unless stated otherwise in the HPI. [facility] Past Medical History Medical History Anemia in chronic kidney disease Blind in both eyes (~03/2023) Occurred acutely March 2023 CHF (congestive heart failure) Chronic heel ulcer Chronic heel ulcer on the left foot developed November 2022 with acute decompensation and subsequent above the knee amputation, no unfortunately do developed a right heel ulcer the fall of 2022 that is been persistent Diabetes mellitus Diabetic nephropathy with proteinuria Nephrotic range Diabetic neuropathy Diastolic heart failure secondary to hypertension EF 70% with grade 2 diastolic dysfunction echocardiogram August 2023 End-stage renal disease on hemodialysis Hemodialysis initiated August 2023 Glaucoma Hyperlipidemia Hypertension Nephrotic syndrome Septic arthritis of shoulder, left Surgical History Surgical History History of left below knee amputation (~12/2022) Due to osteomyelitis Status post insertion of dialysis catheter (08/2023) Right subclavian Family History Family History Father Diabetes mellitus Hypertension Mother Hypertension Obesity Sibling Diabetes mellitus, Onset Age: 28 Sibling Unknown family medical history Does not see a doctor Diabetes mellitus Social History Social History Social History: The patient reports that 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 Since August 2022 she moved in with her sister. She has had a severe significant decline in her health and December 2022had left above the knee amputation. She has been in out of group home and rehab facilities since that time. She is a lifelong nonsmoker. She used to rarely smoke marijuana. She had no significant alcohol use history. She does not have any children. Code status: DNR/DNI (per patient request) evidently during prior hospitalization when the patient became unresponsive family change the patient's code status back to (08/13/2023) full code. Surrogate decision maker: Kianna Nunez (sister) Smoking status: Never smoker Alcohol intake: never Substance use: never Substance use type: marijuana Do You Feel Safe in your Home?: Yes Lack of Transportation: No Lack of Food: Never True Current Housing: I Have Housing Concerned About Future Housing: No Difficulty Paying Gas/Electric Bills: No Difficulty Paying for Meds: No Currently Unemployed: No Education: High School Diploma/GED Difficulty w/ Childcare or Family Care: No Spiritual care concerns: No Exam Narrative: General: Alert, awake, afebrile, in no acute distress. HEENT: PERRL, no rhinorrhea, no post nasal drip, oropharynx clear. Cardiovascular: Regular rate and rhythm, no murmurs, rubs or gallops, no peripheral edema. Respiratory: Clear to auscultation bilaterally, no tachypnea, no wheezing, no rhonchi, no rubs, no respiratory distress. Abdomen: Soft, nontender, nondistended, no rebound, no guarding, no peritoneal signs. Musculoskeletal: No joint swelling or deformity, normal muscle tone , left [id number] amputation, right anterior shoulder incision appears to be clean and dry, moderate amounts of swelling and induration noted to the area with tenderness to palpation, intact full range of motion at the right shoulder joint. Skin: No rashes or petechia, no signs of infection. Neurological: Alert and oriented to person, place, and time. Follows all commands. No focal deficits, speech is clear and fluent. Course Vital Signs Vital signs: Vital Signs Temperature 97.6 F 08/25/24 18:56 Pulse Rate 97 08/25/24 18:56 Respiratory Rate 15 08/25/24 18:56 Blood Pressure 202/112 H 08/25/24 18:56 Pulse Oximetry 100 08/25/24 18:56 Oxygen Delivery Room Air 08/25/24 18:56 Temperature 97.6 F 08/25/24 18:56 Pulse Rate 93 08/26/24 00:46 Respiratory Rate 19 08/26/24 00:46 Blood Pressure 171/96 H 08/26/24 00:46 Pulse Oximetry 97 08/26/24 00:46 Oxygen Delivery Room Air 08/25/24 18:56 MDM - Chest Pain MDM Narrative Medical decision making narrative: The patient was evaluated by myself in the emergency department. History is obtained from patient who is an independent historian and physical exam was performed. External medical records were reviewed at this time. IV was established and pertinent tests were ordered. Patient was administered 4 mg of IV morphine for pain and 4 mg IV Zofran for nausea. EKG was obtained which revealed sinus rhythm rate of 93 beats per minute, no evidence of acute ischemia. EKG was independently interpreted by me and is currently pending official cardiology read. Laboratory results obtained revealing a leukocytosis of 13 0.2, BUN 32, creatinine 4.10 which is around patient's baseline as she is an end-stage renal disease on HD. Lipase elevated at 534. Patient does not have any left upper quadrant abdominal pain. Imaging studies obtained included a CXR which was independently interpreted by me revealin. Cardiomegaly. No acute cardiopulmonary disease. 2. Chronic erosion of the right humeral head consistent with prior septic arthritis and osteomyelitis. CTA chest and right shoulder CT with contrast which was independently interpreted by me revealin. Chronic geographic regions of reticulonodular opacities in both lungs likely sequela of chronic infection. No acute cardiopulmonary disease. 2. Change in chronic septic arthritis and osteomyelitis at the bilateral shoulders. There is moderate amount of fluid and/or synovitis at the right glenohumeral joint raising concern for persistent septic arthritis along with a 5.8 x 4.6 x 4.0 cm likely collection likely complex fluid and gas anterior to the right shoulder involving the anterior deltoid and superficial pectoralis m ajor muscles also concerning for ongoing infection. Finally there is a small amount of fluid in the left subdeltoid consistent with bursitis either septic or aseptic. 3. Indeterminate 2.3 cm hypodense lesion in the spleen which appears to been present dating back at least one year prior most likely related to either granulomatous disease or hemangioma. At this time the [facility] transfer line was contacted and transfer was accepted by the on-call orthopedic surgeon Dr. Allen at 0140 who wanted the patient transferred as an ED to ED transfer. Case was discussed with the on-call ER physician Dr. Blum at 0145 and he accepted transfer. Patient was started on IV cefepime and vancomycin for concern for septic arthritis. Patient was administered a L IV fluid bolus with normal saline after contrast CT. Differential diagnosis considerations include septic joint, aortic dissection, acute coronary syndrome, pneumonia. Comorbidities impacting this visit include end-stage renal disease on HD, medical noncompliance. I have evaluated and discussed social determinants of health with the patient that could potentially impact subsequent diagnosis and treatment plans including her medical noncompliance. On repeat assessment of the patient, reevaluation revealed that the patient is doing well and is in no acute distress. Patient symptoms have improved since she arrived to our emergency department. Repeat vital signs were all reviewed and noted to be stable. Differential diagnosis and treatment plan were discussed with the patient at bedside. Patient agrees with discussion and after shared medical decision making agrees with transfer. All questions were answered to the patient's satisfaction. Lab Data 08/25/24 19:03 10/23/24 19:03 Labs: Lab Results 08/25/24 08/25/24 08/25/24 Range/Units 19:03 19:50 21:27 WBC 13.2 H (4.5-10.0) K/mm3 RBC 3.46 L (4.2-5.4) M/mm3 Hgb 10.0 L (12.0-15.0) g/dL Hct 34.6 L (37.0-47.0) % MCV 100.0 (80-100) fl MCH 28.9 (26-34) pg MCHC 28.9 L (32-36) g/dl RDW 14.7 H (11.5-14.5) % Plt Count 452 H D (150-375) k/mm3 MPV 9.2 (7.4-10.4) fl Immature Gran % (Auto) 0.9 H (0-0.5) % Neut % (Auto) 62.7 (45.5-73.1) % Lymph % (Auto) 21.0 (18.3-44.2) % Dundy % (Auto) 5.8 (2.6-8.5) % Eos % (Auto) 9.0 H (0-4.4) % Baso % (Auto) 0.6 (0.2-1.2) % Lymph # (Auto) 2.77 (0.9-3.2) K/mm3 Dundy # (Auto) 0.8 H (0.1-0.6) K/mm3 Eos # (Auto) 1.2 H (0-0.3) K/mm3 Baso # (Auto) 0.1 (0.0-0.1) K/mm3 Abs Immat Gran (auto) 0.12 H (0.00-0.031) K/mm3 Absolute Neuts (auto) 8.3 H (1.3-6.7) K/mm3 Absolute Nucleated RBC 0.030 H (0.0-0.012) K/mm3 Nucleated RBC % 0.2 (0.0-0.2) % Platelet Estimate Increased (Adequate) Hypochromasia 1+ Boss Cells 1+ Schistocytes None seen PT 14.2 (11.1-14.7) Seconds INR 1.1 APTT 27.9 (22.3-36.8) Seconds Sodium 136 L (137-145) mmol/L Potassium 4.7 (3.4-5.0) mmol/L Chloride 107 (98-107) mmol/L Carbon Dioxide 18 L (22-30) mmol/L Anion Gap 11 (4-12) mmol/L BUN 32 H (7-17) mg/dL Creatinine 4.10 H (0.7-1.0) mg/dL Estim Creat Clear Calc 22 ml/min Estimated GFR 15 L (59 - ) Glucose 231 H (65-110) mg/dL Lactic Acid 1.2 (0.7-2.0) mmol/L Calcium 8.7 (8.4-10.2) mg/dL Total Bilirubin 0.3 (0.2-1.3) mg/dL AST 17 (14-36) U/L ALT 9 (6-35) U/L Alkaline Phosphatase 212 H (38-126) U/L Troponin I < 0.012 (0.000-0.034) ng/mL Total Protein 9.0 H (6.3-8.2) g/dL Albumin 3.8 (3.5-5.1) g/dL Lipase 534 H (23-300) U/L Serum HCG, Qual Negative Discharge Plan Discharge Clinical Impression: Septic arthritis, End stage renal disease on dialysis, Chest pain Patient Disposition: Acute Care Hospital Condition: Stable Prescriptions: No Action carvedilol 12.5 mg tablet 12.5 mg PO BID amlodipine 10 mg tablet 10 mg PO DAILY nystatin 100,000 unit/gram powder 1 applic TOPICAL PRN PRN (Reason: Skin Irritation) Rx Instructions: apply to groin and abd folds prn as needed insulin lispro 100 unit/mL solution See Rx Instructions .ROUTE .COMPLEX Rx Instructions: SUB-Q TIDWM according to sliding scale: 200-250 2 units 251-300 4 units 301-350 6 units 351-400 8 units > 400 notify ondansetron 4 mg tablet,disintegrating 4 mg PO Q6H PRN (Reason: Nausea And Vomiting) lisinopril 20 mg Tablet 20 mg PO QAM 30 Days Qty: 30 0RF furosemide 40 mg Tablet 40 mg PO QMWF acetaminophen 500 mg Tablet 500 mg PO Q6H PRN (Reason: Pain, Mild) diphenhydramine HCl 25 mg Capsule 25 mg PO Q8H PRN (Reason: Itching) Fleet Enema 19-7 gram/118 mL Enema 197 ml RECTAL PRN PRN (Reason: Constipation) Rx Instructions: insert 1 application rectally as needed if no result 1 day after suppository gabapentin 100 mg Capsule 100 mg PO TID B complex with C 20-folic acid 1 mg Capsule 1 cap PO DAILY gentamicin 0.1 % Ointment 1 applic TOPICAL PRN PRN (Reason: Wound Care) Rx Instructions: Apply to right plantar heel topically as needed for wound care gentamicin 0.1 % Ointment 1 applic topical DAILY Rx Instructions: Apply to right plantar heel mixed with collagen powder daily during dressing change. ondansetron 4 mg Tablet,Disintegrating 4 mg PO TID sevelamer HCl 800 mg Tablet 800 mg PO TID Rx Instructions: must administer with a meal/food sennosides-docusate sodium 8.6-50 mg Tablet 1 tab-cap PO DAILY melatonin 3 mg Tablet 3 mg PO HS PRN (Reason: Insomnia) diclofenac sodium [Voltaren Arthritis Pain] 1 % Gel 4 g TOPICAL Q12H PRN (Reason: Pain) Rx Instructions: apply to bilateral arms/shoulders as needed or pain relief Glucagon Emergency Kit 1 mg Kit 1 mg IM PRN PRN (Reason: Hypoglycemia) Rx Instructions: Inject 1 mL IM as needed for hypoglycemia. May repeat x1 if blood sugar is still below 80 in 30 minutes polyethylene glycol 3350 17 gram Powder In Packet 17 g PO DAILY pentoxifylline 400 mg tablet extended release 400 mg PO DAILY bisacodyl 10 mg Suppository 10 mg RECTAL DAILY PRN (Reason: Constipation) Rx Instructions: For use of no BM with milk of magnesia. magnesium citrate [Citroma] Solution 300 ml PO DAILY PRN (Reason: Constipation) Rx Instructions: If no results after enema. Call MD if no results within 1 hour after completion of bowel protocol. cyclobenzaprine 10 mg tablet 10 mg PO Q8H PRN (Reason: muscle spasm) tramadol 50 mg tablet 50 mg PO Q6H PRN (Reason: Moderate Pain (Scale Score 5-6)) loperamide 2 mg capsule 2 mg PO Q8H PRN (Reason: Diarrhea) Follow-up/Referrals: Darnell,TOÑITO Luong [Primary Care Provider] -
[2024-08-25] MEDS: ASPIRIN 81 MG CHEWABLE TABLET 324 MG PO (19:28)
[2024-08-25 19:54] VITALS: BP 184/104; PULSE 93; RESP 16; O2SAT 95
[2024-08-25 19:56] LABS: Basophils Absolute Auto 0.1 K/mm3 (0.0-0.1); Basophils Percent Auto 0.6 % (0.2-1.2); Eosinophils Absolute Auto 1.2 K/mm3 (0-0.3); Hematocrit 34.6 % (37.0-47.0); Immature Granulocyte Absolute 0.12 K/mm3 (0.00-0.031); Immature Granulocyte Percent A 0.9 % (0-0.5); Lymphocytes Absolute Auto 2.77 K/mm3 (0.9-3.2); Mean Corpuscular HGB Conc 28.9 g/dl (32-36); Mean Corpuscular Hemoglobin 28.9 pg (26-34); Mean Platelet Volume 9.2 fl (7.4-10.4); Monocytes Absolute Auto 0.8 K/mm3 (0.1-0.6); Monocytes Percent Auto 5.8 % (2.6-8.5); Neutrophils Absolute Auto 8.3 K/mm3 (1.3-6.7); Neutrophils Percent Auto 62.7 % (45.5-73.1); Nucleated Red Blood Cells Perc 0.2 % (0.0-0.2); Platelet Count Result 452 k/mm3 (150-375); Red Blood Count 3.46 M/mm3 (4.2-5.4); Red Cell Distribution Width 14.7 % (11.5-14.5); White Blood Count 13.2 K/mm3 (4.5-10.0)
[2024-08-25 20:13] LABS: Alanine Aminotransferase 9 U/L (6-35); Albumin Level 3.8 g/dL (3.5-5.1); Alkaline Phosphatase 212 U/L (38-126); Anion Gap 11 mmol/L (4-12); Aspartate Amino Transferase 17 U/L (14-36); Bilirubin,Total 0.3 mg/dL (0.2-1.3); Blood Urea Nitrogen 32 mg/dL (7-17); Calcium 8.7 mg/dL (8.4-10.2); Carbon Dioxide 18 mmol/L (22-30); Chloride 107 mmol/L (98-107); Estimated CRCL calculation 22 ml/min; Estimated Glomerular Filt Rate 15; Glucose 231 mg/dL (65-110); Lipase 534 U/L (23-300); Potassium 4.7 mmol/L (3.4-5.0); Sodium 136 mmol/L (137-145)
[2024-08-25 20:15] LABS: INR 1.1; Prothrombin Time 14.2 Seconds (11.1-14.7)
[2024-08-25 20:17] LABS: Partial Thromboplastin Time 27.9 Seconds (22.3-36.8)
[2024-08-25 20:23] LABS: Troponin I < 0.012 ng/mL (0.000-0.034)
[2024-08-25 20:34] LABS: Burr Cells 1+; Hypochromasia 1+; Platelet Estimate Increased (Adequate); Schistocytes None Seen
[2024-08-25 20:45] LABS: Lactic Acid Reflex 1.2 mmol/L (0.7-2.0)
[2024-08-25 21:20] VITALS: BP 193/94; PULSE 90; RESP 16; O2SAT 98
[2024-08-25 22:03] LABS: SPREG INTERNAL CONTROL Positive; Serum Qual hCG Negative
[2024-08-25 23:34] VITALS: BP 194/104; PULSE 96; RESP 17; O2SAT 99
[2024-08-25] MEDS: MORPHINE SULFATE (*CRX) 4 MG/ML INJ IV PUSH (23:35)
[2024-08-25] MEDS: SODIUM CHLORIDE 0.9% IV 1,000 ML 999 ML IV CONT (23:35)
[2024-08-25] MEDS: ONDANSETRON INJ 4 MG/2 ML VIAL IV PUSH (23:35)
--- NOTE | 2024-08-25 23:46 | PC.NURSE ---
Pt states she has hx of htn and takes 3 blood pressure medications. She states she does not remember what they all are but states she was supposed to get them when she was discharged from [facility] but has had trouble filling the prescription, therefore she has not taken any of them.
[2024-08-25 23:58] VITALS: PULSE 90
[2024-08-26 00:01] VITALS: BP 178/94; PULSE 93; RESP 15; O2SAT 98
[2024-08-26 00:46] VITALS: BP 171/96; PULSE 93; RESP 19; O2SAT 97
[2024-08-26 01:02] VITALS: BP 140/83; PULSE 91; O2SAT 100
[2024-08-26 01:31] VITALS: BP 160/89; O2SAT 97
[2024-08-26] MEDS: CEFEPIME 2 GM/NS 50 ML 2 GM/50 ML BAG IVPB (02:05)
[2024-08-26 02:30] VITALS: BP 172/110; PULSE 92; RESP 17; O2SAT 99
[2024-08-26] MEDS: MORPHINE SULFATE (*CRX) 2 MG/ML INJ (03:15)
[2024-08-26] MEDS: ONDANSETRON INJ 4 MG/2 ML VIAL (03:15)
[2024-08-26 03:28] VITALS: BP 179/105; PULSE 88; RESP 18; O2SAT 98
[2024-08-26] MEDS: VANCOMYCIN 2,000 MG/NS 500 ML 2,000 MG/500 ML BAG 250 MG IVPB (03:34)
== END 2024-08-26 03:32 | disposition short-term general hospital (02) ==
PROVIDERS: Emergency Medicine; Emergency Provider Emergency Medicine; PCP Physician Assistant
DX: R07.9 Chest pain, unspecified (principal); M00.9 Pyogenic arthritis, unspecified; I13.2 Hypertensive heart and chronic kidney disease with heart failure and with stage 5 chronic kidney disease, or end stage renal disease; N18.6 End stage renal disease; T45.516A Underdosing of 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, initial encounter; T46.5X6A Underdosing of other antihypertensive drugs, initial encounter; E11.22 Type 2 diabetes mellitus with diabetic chronic kidney disease; I50.30 Unspecified diastolic (congestive) heart failure; D63.1 Anemia in chronic kidney disease; Z99.2 Dependence on renal dialysis; E11.21 Type 2 diabetes mellitus with diabetic nephropathy; E11.40 Type 2 diabetes mellitus with diabetic neuropathy, unspecified; E11.39 Type 2 diabetes mellitus with other diabetic ophthalmic complication; H42 Glaucoma in diseases classified elsewhere; E78.5 Hyperlipidemia, unspecified; Z89.512 Acquired absence of left leg below knee; Z66 Do not resuscitate; Z79.4 Long term (current) use of insulin; Z79.899 Other long term (current) drug therapy; R94.31 Abnormal electrocardiogram [ECG] [EKG]; I51.7 Cardiomegaly
CPT/HCPCS: 36415; 71045; 71275; 80053; 83605; 83690; 84484; 84703; 85025; 85610; 85730; 87040; 93005; 96361; 96365; 96374; 96375; 99285; A9270; J0692; J2270; J2405; J3370; J7030; Q9967

== ENCOUNTER 2024-11-02 09:58 | Emergency (ER) | payer OTHER, SELFPAY ==
[2024-11-02] VITALS (7 sets, daily range): BP systolic 112–128; BP diastolic 69–93; PULSE 90–97; RESP 12–16; TEMP 36.4; O2SAT 99–100
--- NOTE | ~2024-11-02 | XR_ITS ---
Clinical Indication: Chest pain AP and lateral views of the chest: Comparison: 08/25/2024 Findings: Stable left-sided central venous line. The lungs are clear, without evidence of focal conso lidation or pleural effusion. Cardiomediastinal silhouette is within normal limits. Bones and soft t issues are unremarkable. Impression: Clear lungs. Stable support line. Reviewed, dictated and finalized at location [facility]. [employer] SAL[employer] REPRESENTATIVE Impression: Clear lungs. Stable support line.
--- NOTE | 2024-11-02 09:58 | ECG_ITS ---
Test Date: 2024-11-02 10:11:00 Measurements Intervals [place] Rate: 95 P: 51 AL: 184 QRS: -40 QRSD: 79 T: 18 QT: 347 QTc: 438 Interpretive Statements SINUS RHYTHM LEFT ATRIAL ENLARGEMENT [-0.15mV P WAVE IN V1/V2] MARKED LEFT AXIS DEVIATION [QRS AXIS < -30] PATTERN CONSISTENT WITH PULMONARY DISEASE POSSIBLE LEFT VENTRICULAR HYPERTROPHY [VOLTAGE CRITERIA PLUS LAE OR QRS WIDENING] Compared to ECG 08/25/2024 19:03:31 No significant changes Electronically Signed On 11-02-2024 22:46:21 PAN HELPER by Lisbeth Ames M.D.
[2024-11-02 10:20] LABS: Basophils Absolute Auto 0.1 K/mm3 (0.0-0.1); Basophils Percent Auto 0.5 % (0.2-1.2); Eosinophils Absolute Auto 0.5 K/mm3 (0-0.3); Eosinophils Percent Auto 5.7 % (0-4.4); Hematocrit 45.1 % (37.0-47.0); Hemoglobin 14.2 g/dL (12.0-15.0); Immature Granulocyte Absolute 0.06 K/mm3 (0.00-0.031); Immature Granulocyte Percent A 0.6 % (0-0.5); Lymphocytes Absolute Auto 3.06 K/mm3 (0.9-3.2); Lymphocytes Percent Auto 32.6 % (18.3-44.2); Mean Corpuscular HGB Conc 31.5 g/dl (32-36); Mean Corpuscular Hemoglobin 30.5 pg (26-34); Mean Corpuscular Volume 96.8 fl (80-100); Mean Platelet Volume 9.5 fl (7.4-10.4); Monocytes Absolute Auto 0.7 K/mm3 (0.1-0.6); Monocytes Percent Auto 6.9 % (2.6-8.5); Neutrophils Percent Auto 53.7 % (45.5-73.1); Platelet Count Result 300 k/mm3 (150-375); Red Blood Count 4.66 M/mm3 (4.2-5.4); White Blood Count 9.4 K/mm3 (4.5-10.0)
[2024-11-02 10:35] LABS: INR 1.1; Prothrombin Time 14.7 Seconds (11.1-14.7)
[2024-11-02 10:36] LABS: Partial Thromboplastin Time 28.2 Seconds (22.3-36.8)
[2024-11-02 11:10] LABS: Alanine Aminotransferase 14 U/L (6-35); Albumin Level 3.6 g/dL (3.5-5.1); Alkaline Phosphatase 165 U/L (38-126); Anion Gap 9 mmol/L (4-12); Aspartate Amino Transferase 25 U/L (14-36); Bilirubin,Total 0.6 mg/dL (0.2-1.3); Blood Urea Nitrogen 41 mg/dL (7-17); Calcium 8.4 mg/dL (8.4-10.2); Carbon Dioxide 16 mmol/L (22-30); Chloride 109 mmol/L (98-107); Estimated Glomerular Filt Rate 11; Glucose 341 mg/dL (65-110); Lipase 96 U/L (23-300); Potassium 5.4 mmol/L (3.4-5.0); Sodium 134 mmol/L (137-145)
[2024-11-02 11:17] LABS: Troponin I < 0.012 ng/mL (0.000-0.034)
--- NOTE | 2024-11-02 11:55 | ED.CHESTPAIN ---
HPI - Chest Pain General Chief Complaint: Chest Pain <Akosua Barrett PA-C - Last Filed: 11/02/24 11:56> Stated Complaint: cp during dialysis <Akosua Barrett PA-C - Last Filed: 11/02/24 11:56> Time Seen by Provider: 11/02/24 12:07 <Akosua Barrett PA-C - Last Filed: 11/02/24 11:56> Focused HPI: 34-year-old female with history of CKD on HD presents to the emergency department for chest pain that started around 830 while at dialysis this morning. She states the pain was in the center of her chest and describes it as a sharp throbbing pain. EMS transported her to the ED and gave her aspirin and nitro and states that this improved her pain and she has not had pain since. She is also reporting chronic right-sided neck pain that radiates into the right arm. States she has been seen multiple times for this in the past. No injury or trauma. GENERAL: Chronically ill appearing, in no acute distress. HEAD: Normocephalic, atraumatic. CHEST: Clear to auscultation. ?No respiratory distress. HEART: Regular rate and rhythm.? NEURO: ?Alert and oriented x3. Patient screened in triage and initial orders placed.? ?Additional care and disposition to be based upon?diagnostic testing and treatment. <Akosua Barrett PA-C - Last Filed: 11/02/24 11:56> History of Present Illness HPI narrative: Patient denies chest pain from a reports that she was having her typical right shoulder pain that she has had for multiple weeks. The pain started radiating into her left neck. Usually when she comes here she reports she gets some morphine or Dilaudid. No chest pain. No dyspnea. <Levi Moody MD - Last Filed: 11/02/24 13:57> Related Data Home Medications: Home Medications ?Medication ?Instructions ?Recorded ?Confirmed ?Last Taken ?Type amlodipine 10 mg tablet 10 mg PO DAILY 08/04/23 05/16/24 Unknown History carvedilol 12.5 mg tablet 12.5 mg PO BID 08/04/23 05/16/24 Unknown History insulin lispro 100 unit/mL See Rx Instructions .Route .COMPLEX 08/04/23 05/16/24 Unknown History subcutaneous solution nystatin 100,000 unit/gram topical 1 applic topical PRN PRN Skin 08/04/23 05/16/24 Unknown History powder Irritation ondansetron 4 mg disintegrating 4 mg PO Q6H PRN Nausea And Vomiting 08/05/23 05/16/24 Unknown History tablet bisacodyl 10 mg rectal suppository 10 mg RECTAL DAILY PRN Constipation 02/16/24 05/16/24 Unknown History cyclobenzaprine 10 mg tablet 10 mg PO Q8H PRN muscle spasm 02/16/24 05/16/24 Unknown History loperamide 2 mg capsule 2 mg PO Q8H PRN Diarrhea 02/16/24 05/16/24 Unknown History magnesium citrate (Citroma oral 300 ml PO DAILY PRN Constipation 02/16/24 05/16/24 Unknown History solution) tramadol 50 mg tablet 50 mg PO Q6H PRN Moderate Pain 02/16/24 05/16/24 Unknown History (Scale Score 5-6) acetaminophen 500 mg tablet 500 mg PO Q6H PRN Pain, Mild 05/16/24 05/16/24 Unknown History diclofenac sodium 1 % topical gel 4 g topical Q12H PRN Pain 05/16/24 05/16/24 Unknown History (Voltaren Arthritis Pain) diphenhydramine HCl 25 mg capsule 25 mg PO Q8H PRN Itching 05/16/24 05/16/24 Unknown History furosemide 40 mg tablet 40 mg PO QMWF 05/16/24 05/16/24 Unknown History gabapentin 100 mg capsule 100 mg PO TID 05/16/24 05/16/24 Unknown History gentamicin 0.1 % topical ointment 1 applic topical DAILY 05/16/24 05/16/24 Unknown History gentamicin 0.1 % topical ointment 1 applic topical PRN PRN Wound Care 05/16/24 05/16/24 Unknown History glucagon 1 mg injection kit 1 mg IM PRN PRN Hypoglycemia 05/16/24 05/16/24 Unknown History melatonin 3 mg tablet 3 mg PO HS PRN Insomnia 05/16/24 05/16/24 Unknown History ondansetron 4 mg disintegrating 4 mg PO TID 05/16/24 05/16/24 Unknown History tablet pentoxifylline 400 mg 400 mg PO DAILY 05/16/24 05/20/24 Unknown History tablet,extended release polyethylene glycol 3350 17 gram 17 g PO DAILY 05/16/24 05/16/24 Unknown History oral powder packet sennosides 8.6 mg-docusate sodium 1 tab-cap PO DAILY 05/16/24 05/16/24 Unknown History 50 mg tablet sevelamer HCl 800 mg tablet 800 mg PO TID 05/16/24 05/16/24 Unknown History sodium phosphates 19 gram-7 197 ml RECTAL PRN PRN Constipation 05/16/24 05/16/24 Unknown History gram/118 mL enema (Fleet Enema) vitamin B complex and vitamin C 1 cap PO DAILY 05/16/24 05/16/24 Unknown History no.20-folic acid 1 mg capsule <Akosua Barrett PA-C - Last Filed: 11/02/24 11:56> Allergies/Adverse Reactions: Allergies Allergy/AdvReac Type Severity Reaction Status Date / Time No Known Allergies Allergy Verified 11/02/24 12:01 <Akosua Barrett PA-C - Last Filed: 11/02/24 11:56> Review of Systems Review of Systems: All systems reviewed & are unremarkable except as noted in HPI and below <Levi Moody MD - Last Filed: 11/02/24 13:57> Constitutional: Constitutional: Reports no additional constitutional complaints <Levi Moody MD - Last Filed: 11/02/24 13:57> ENT: Reports system reviewed and no additional complaints, except as documented <Levi Moody MD - Last Filed: 11/02/24 13:57> Cardiovascular: Cardiovascular: Reports no additional cardiovascular complaints <Levi Moody MD - Last Filed: 11/02/24 13:57> Respiratory: Respiratory: Reports no additional respiratory complaints <Levi Moody MD - Last Filed: 11/02/24 13:57> Gastrointestinal: Gastrointestinal: Reports no additional gastrointestinal complaints <Levi Moody MD - Last Filed: 11/02/24 13:57> Musculoskeletal: Musculoskeletal: Reports no additional musculoskeletal complaints <Levi Moody MD - Last Filed: 11/02/24 13:57> PMFSH Past Medical History Medical History: Medical History Anemia in chronic kidney disease Blind in both eyes (~03/2023) Occurred acutely March 2023 CHF (congestive heart failure) Chronic heel ulcer Chronic heel ulcer on the left foot developed November 2022 with acute decompensation and subsequent above the knee amputation, no unfortunately do developed a right heel ulcer the fall of 2022 that is been persistent Diabetes mellitus Diabetic nephropathy with proteinuria Nephrotic range Diabetic neuropathy Diastolic heart failure secondary to hypertension EF 70% with grade 2 diastolic dysfunction echocardiogram August 2023 End-stage renal disease on hemodialysis Hemodialysis initiated August 2023 Glaucoma Hyperlipidemia Hypertension Nephrotic syndrome Septic arthritis of shoulder, left <Akosua Barrett PA-C - Last Filed: 11/02/24 11:56> Surgical History Surgical History: Surgical History History of left below knee amputation (~12/2022) Due to osteomyelitis Status post insertion of dialysis catheter (08/2023) Right subclavian <Akosua Barrett PA-C - Last Filed: 11/02/24 11:56> Family History Family History: Family History Father Diabetes mellitus Hypertension Mother Hypertension Obesity Sibling Diabetes mellitus, Onset Age: 28 Sibling Unknown family medical history Does not see a doctor Diabetes mellitus <Akosua Barrett PA-C - Last Filed: 11/02/24 11:56> Social History Social History: Social History Social History: The patient reports that 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 Since August 2022 she moved in with her sister. She has had a severe significant decline in her health and December 2022had left above the knee amputation. She has been in out of [place] [facility] and rehab facilities since that time. She is a lifelong nonsmoker. She used to rarely smoke marijuana. She had no significant alcohol use history. She does not have any children. Code status: DNR/DNI (per patient request) evidently during prior hospitalization when the patient became unresponsive family change the patient's code status back to (08/13/2023) full code. Surrogate decision maker: Kianna Nunez (sister) Smoking status: Never smoker Alcohol intake: never Substance use: never Substance use type: marijuana Do You Feel Safe in your Home?: Yes Lack of Transportation: No Lack of Food: Never True Current Housing: I Have Housing Concerned About Future Housing: No Difficulty Paying Gas/Electric Bills: No Difficulty Paying for Meds: No Currently Unemployed: No Education: High School Diploma/GED Difficulty w/ Childcare or Family Care: No Spiritual care concerns: No <Akosua Barrett PA-C - Last Filed: 11/02/24 11:56> Exam Narrative: GENERAL: Chronically ill-appearing, well-nourished, and in no acute distress. HEAD: Normocephalic, atraumatic. ENT: Nares clear, no rhinorrhea or epistaxis. Mucous membranes moist. NECK: Supple. No paraspinal muscle tenderness. CHEST: Clear to auscultation. No respiratory distress. HEART: Regular rate and rhythm. Normal peripheral pulses. ABDOMEN: Soft, nontender, nondistended. EXTREMITIES: normal range of motion without reproducible tenderness the right upper extremity of the shoulder. SKIN: Warm, dry, no rash. NEURO: Alert and oriented x3. PSYCH: Normal mood and affect. <Levi Moody MD - Last Filed: 11/02/24 13:57> Course Course Emergency Course: Troponin negative x2. Symptoms felt to be musculoskeletal in chronic. Discharge. <Levi Moody MD - Last Filed: 11/02/24 13:57> Vital Signs Vital signs: Vital Signs Temperature 97.6 F 11/02/24 10:02 Pulse Rate 97 11/02/24 10:02 Respiratory Rate 16 11/02/24 10:02 Blood Pressure 112/69 11/02/24 10:02 Pulse Oximetry 99 11/02/24 10:02 Oxygen Delivery Room Air 11/02/24 10:02 Temperature 97.6 F 11/02/24 10:02 Pulse Rate 94 11/02/24 12:00 Respiratory Rate 12 11/02/24 12:00 Blood Pressure 128/93 H 11/02/24 12:00 Pulse Oximetry 100 11/02/24 12:00 Oxygen Delivery Room Air 11/02/24 12:00 <Akosua Barrett PA-C - Last Filed: 11/02/24 11:56> Vital Signs Temperature 97.6 F 11/02/24 10:02 Pulse Rate 97 11/02/24 10:02 Respiratory Rate 16 11/02/24 10:02 Blood Pressure 112/69 11/02/24 10:02 Pulse Oximetry 99 11/02/24 10:02 Oxygen Delivery Room Air 11/02/24 10:02 Temperature 97.6 F 11/02/24 10:02 Pulse Rate 94 11/02/24 12:00 Respiratory Rate 12 11/02/24 12:00 Blood Pressure 128/93 H 11/02/24 12:00 Pulse Oximetry 100 11/02/24 12:00 Oxygen Delivery Room Air 11/02/24 12:00 <Levi Moody MD - Last Filed: 11/02/24 13:57> MDM - Chest Pain Lab Data Result diagrams: 11/02/24 10:09 11/02/24 10:09 <Akosua Barrett PA-C - Last Filed: 11/02/24 11:56> Labs: Lab Results 11/02/24 11/02/24 Range/Units 10:09 13:05 WBC 9.4 (4.5-10.0) K/mm3 RBC 4.66 (4.2-5.4) M/mm3 Hgb 14.2 D (12.0-15.0) g/dL Hct 45.1 (37.0-47.0) % MCV 96.8 (80-100) fl MCH 30.5 (26-34) pg MCHC 31.5 L (32-36) g/dl RDW 14.0 (11.5-14.5) % Plt Count 300 (150-375) k/mm3 MPV 9.5 (7.4-10.4) fl Immature Gran % (Auto) 0.6 H (0-0.5) % Neut % (Auto) 53.7 (45.5-73.1) % Lymph % (Auto) 32.6 (18.3-44.2) % [place] % (Auto) 6.9 (2.6-8.5) % Eos % (Auto) 5.7 H (0-4.4) % Baso % (Auto) 0.5 (0.2-1.2) % Lymph # (Auto) 3.06 (0.9-3.2) K/mm3 [place] # (Auto) 0.7 H (0.1-0.6) K/mm3 Eos # (Auto) 0.5 H (0-0.3) K/mm3 Baso # (Auto) 0.1 (0.0-0.1) K/mm3 Abs Immat Gran (auto) 0.06 H (0.00-0.031) K/mm3 Absolute Neuts (auto) 5.0 (1.3-6.7) K/mm3 Absolute Nucleated RBC 0.000 (0.0-0.012) K/mm3 Nucleated RBC % 0.0 (0.0-0.2) % PT 14.7 (11.1-14.7) Seconds INR 1.1 APTT 28.2 (22.3-36.8) Seconds Sodium 134 L (137-145) mmol/L Potassium 5.4 H (3.4-5.0) mmol/L Chloride 109 H (98-107) mmol/L Carbon Dioxide 16 L (22-30) mmol/L Anion Gap 9 (4-12) mmol/L BUN 41 H (7-17) mg/dL Creatinine 5.40 H (0.7-1.0) mg/dL Estim Creat Clear Calc Not Reportable Estimated GFR 11 L (59 - ) Glucose 341 H (65-110) mg/dL Calcium 8.4 (8.4-10.2) mg/dL Total Bilirubin 0.6 (0.2-1.3) mg/dL AST 25 (14-36) U/L ALT 14 (6-35) U/L Alkaline Phosphatase 165 H (38-126) U/L Troponin I < 0.012 < 0.012 (0.000-0.034) ng/mL NT-Pro-B Natriuret Pep 663 H (19.9-100) pg/mL Total Protein 8.0 (6.3-8.2) g/dL Albumin 3.6 (3.5-5.1) g/dL Lipase 96 (23-300) U/L <Akosua Barrett PA-C - Last Filed: 11/02/24 11:56> Lab Results 11/02/24 11/02/24 Range/Units 10:09 13:05 WBC 9.4 (4.5-10.0) K/mm3 RBC 4.66 (4.2-5.4) M/mm3 Hgb 14.2 D (12.0-15.0) g/dL Hct 45.1 (37.0-47.0) % MCV 96.8 (80-100) fl MCH 30.5 (26-34) pg MCHC 31.5 L (32-36) g/dl RDW 14.0 (11.5-14.5) % Plt Count 300 (150-375) k/mm3 MPV 9.5 (7.4-10.4) fl Immature Gran % (Auto) 0.6 H (0-0.5) % Neut % (Auto) 53.7 (45.5-73.1) % Lymph % (Auto) 32.6 (18.3-44.2) % [place] % (Auto) 6.9 (2.6-8.5) % Eos % (Auto) 5.7 H (0-4.4) % Baso % (Auto) 0.5 (0.2-1.2) % Lymph # (Auto) 3.06 (0.9-3.2) K/mm3 [place] # (Auto) 0.7 H (0.1-0.6) K/mm3 Eos # (Auto) 0.5 H (0-0.3) K/mm3 Baso # (Auto) 0.1 (0.0-0.1) K/mm3 Abs Immat Gran (auto) 0.06 H (0.00-0.031) K/mm3 Absolute Neuts (auto) 5.0 (1.3-6.7) K/mm3 Absolute Nucleated RBC 0.000 (0.0-0.012) K/mm3 Nucleated RBC % 0.0 (0.0-0.2) % PT 14.7 (11.1-14.7) Seconds INR 1.1 APTT 28.2 (22.3-36.8) Seconds Sodium 134 L (137-145) mmol/L Potassium 5.4 H (3.4-5.0) mmol/L Chloride 109 H (98-107) mmol/L Carbon Dioxide 16 L (22-30) mmol/L Anion Gap 9 (4-12) mmol/L BUN 41 H (7-17) mg/dL Creatinine 5.40 H (0.7-1.0) mg/dL Estim Creat Clear Calc Not Reportable Estimated GFR 11 L (59 - ) Glucose 341 H (65-110) mg/dL Calcium 8.4 (8.4-10.2) mg/dL Total Bilirubin 0.6 (0.2-1.3) mg/dL AST 25 (14-36) U/L ALT 14 (6-35) U/L Alkaline Phosphatase 165 H (38-126) U/L Troponin I < 0.012 < 0.012 (0.000-0.034) ng/mL NT-Pro-B Natriuret Pep 663 H (19.9-100) pg/mL Total Protein 8.0 (6.3-8.2) g/dL Albumin 3.6 (3.5-5.1) g/dL Lipase 96 (23-300) U/L <Levi Moody MD - Last Filed: 11/02/24 13:57> Imaging Data Radiologist's impression: ITS Impressions Chest X-Ray 11/02/24 10:46 Impression: Clear lungs. Stable support line. <Levi Moody MD - Last Filed: 11/02/24 13:57> ECG Data EKG #1: ECG completion date: 11/02/24 <Levi Moody MD - Last Filed: 11/02/24 13:57> ECG completion time: 10:11 <Levi Moody MD - Last Filed: 11/02/24 13:57> EKG Interpretation: normal rate (95), sinus rhythm, non-specific ST changes, normal QRS, normal QT and left axis <Levi Moody MD - Last Filed: 11/02/24 13:57> Discharge Plan Discharge Clinical Impression: Chronic shoulder pain <Akosua Barrett PA-C - Last Filed: 11/02/24 11:56> Patient Disposition: Home, Self-Care <Akosua Barrett PA-C - Last Filed: 11/02/24 11:56> Condition: Stable <Akosua Barrett PA-C - Last Filed: 11/02/24 11:56> Instructions: Antibiotic Form, Shoulder Pain (ED) <Akosua Barrett PA-C - Last Filed: 11/02/24 11:56> Additional Instructions: Please return to the emergency department if you develop severe and persistent chest pain, difficulty breathing, dizziness, leg swelling or if you are coughing up blood as these can be signs of a medical emergency. Please call your doctor for a follow up appointment to determine the need for further testing. <Akosua Barrett PA-C - Last Filed: 11/02/24 11:56> Patient Language: Guyanese <Akosua Barrett PA-C - Last Filed: 11/02/24 11:56> Prescriptions: No Action carvedilol 12.5 mg tablet 12.5 mg PO BID amlodipine 10 mg tablet 10 mg PO DAILY nystatin 100,000 unit/gram powder 1 applic TOPICAL PRN PRN (Reason: Skin Irritation) Rx Instructions: apply to groin and abd folds prn as needed insulin lispro 100 unit/mL solution See Rx Instructions .ROUTE .COMPLEX Rx Instructions: SUB-Q TIDWM according to sliding scale: 200-250 2 units 251-300 4 units 301-350 6 units 351-400 8 units > 400 notify ondansetron 4 mg tablet,disintegrating 4 mg PO Q6H PRN (Reason: Nausea And Vomiting) lisinopril 20 mg Tablet 20 mg PO QAM 30 Days Qty: 30 0RF furosemide 40 mg Tablet 40 mg PO QMWF acetaminophen 500 mg Tablet 500 mg PO Q6H PRN (Reason: Pain, Mild) diphenhydramine HCl 25 mg Capsule 25 mg PO Q8H PRN (Reason: Itching) Fleet Enema 19-7 gram/118 mL Enema 197 ml RECTAL PRN PRN (Reason: Constipation) Rx Instructions: insert 1 application rectally as needed if no result 1 day after suppository gabapentin 100 mg Capsule 100 mg PO TID B complex with C 20-folic acid 1 mg Capsule 1 cap PO DAILY gentamicin 0.1 % Ointment 1 applic TOPICAL PRN PRN (Reason: Wound Care) Rx Instructions: Apply to right plantar heel topically as needed for wound care gentamicin 0.1 % Ointment 1 applic topical DAILY Rx Instructions: Apply to right plantar heel mixed with collagen powder daily during dressing change. ondansetron 4 mg Tablet,Disintegrating 4 mg PO TID sevelamer HCl 800 mg Tablet 800 mg PO TID Rx Instructions: must administer with a meal/food sennosides-docusate sodium 8.6-50 mg Tablet 1 tab-cap PO DAILY melatonin 3 mg Tablet 3 mg PO HS PRN (Reason: Insomnia) diclofenac sodium [Voltaren Arthritis Pain] 1 % Gel 4 g TOPICAL Q12H PRN (Reason: Pain) Rx Instructions: apply to bilateral arms/shoulders as needed or pain relief Glucagon Emergency Kit 1 mg Kit 1 mg IM PRN PRN (Reason: Hypoglycemia) Rx Instructions: Inject 1 mL IM as needed for hypoglycemia. May repeat x1 if blood sugar is still below 80 in 30 minutes polyethylene glycol 3350 17 gram Powder In Packet 17 g PO DAILY pentoxifylline 400 mg tablet extended release 400 mg PO DAILY bisacodyl 10 mg Suppository 10 mg RECTAL DAILY PRN (Reason: Constipation) Rx Instructions: For use of no BM with milk of magnesia. magnesium citrate [Citroma] Solution 300 ml PO DAILY PRN (Reason: Constipation) Rx Instructions: If no results after enema. Call MD if no results within 1 hour after completion of bowel protocol. cyclobenzaprine 10 mg tablet 10 mg PO Q8H PRN (Reason: muscle spasm) tramadol 50 mg tablet 50 mg PO Q6H PRN (Reason: Moderate Pain (Scale Score 5-6)) loperamide 2 mg capsule 2 mg PO Q8H PRN (Reason: Diarrhea) <Akosua Barrett PA-C - Last Filed: 11/02/24 11:56> Follow-up/Referrals: John,TOÑITO Luong [Primary Care Provider] - 1 Week <Akosua Barrett PA-C - Last Filed: 11/02/24 11:56>
[2024-11-02 13:03] LABS: NT Pro B Type Natriuretic Pept 663 pg/mL (19.9-100)
[2024-11-02 13:33] LABS: Troponin I < 0.012 ng/mL (0.000-0.034)
== END 2024-11-02 17:53 | disposition home or self-care (01) ==
PROVIDERS: Physician Assistant; Student in an Organized Health Care Education/Training Program; Emergency Provider Emergency Medicine; PCP Physician Assistant
DX: M25.511 Pain in right shoulder (principal); I50.9 Heart failure, unspecified; E11.22 Type 2 diabetes mellitus with diabetic chronic kidney disease; E78.5 Hyperlipidemia, unspecified; D63.1 Anemia in chronic kidney disease; I13.2 Hypertensive heart and chronic kidney disease with heart failure and with stage 5 chronic kidney disease, or end stage renal disease; N18.6 End stage renal disease; Z99.2 Dependence on renal dialysis; Z79.4 Long term (current) use of insulin
CPT/HCPCS: 36415; 71046; 80053; 83690; 83880; 84484; 85025; 85610; 85730; 93005; 99284

== ENCOUNTER 2024-11-10 01:48 | Observation (INO) | payer OTHER, SELFPAY ==
[2024-11-10] VITALS (28 sets, daily range): BP systolic 123–182; BP diastolic 56–110; PULSE 71–102; RESP 16–19; TEMP 36–37.4; O2SAT 95–100; BMI 41.7
--- NOTE | ~2024-11-10 | CT_ITS ---
Procedure: CT shoulder RT wo con Ordering provider: Erwin Perkins MD History: . Septic arthritis right shoulder . Comparison: None. Technique: Thin slice axial CT of the No IV contrast was given. Sagittal and coronal reformatted imag es were also obtained and reviewed. Radiation reduction technique utilized. The dose-length product was 679.28 mGy-cm. Findings: BONES: Bone destruction is seen in the area of the greater tuberosity of the humerus. Irregularity of the bone is also seen medially. JOINT SPACES: Normal SOFT TISSUES: Minimal fluid is seen in the area of the glenohumeral joint and superiorly. Extension o f the soft tissue is seen medially inferior to the coronoid process. Drainage catheter is seen in the subcutaneous tissues. IMPRESSION: Destructive changes seen in the humeral head and in the area of the greater tuberosity. Drainage catheter is seen in the subcutaneous tissues. Reviewed, dictated and finalized at location A. [facility] IMPRESSION: Destructive changes seen in the humeral head and in the area of the greater tub erosity. Drainage catheter is seen in the subcutaneous tissues.
--- NOTE | ~2024-11-10 | XR_ITS ---
Portable chest x-ray Comparison: 11/02/2024 Clinical History: Dyspnea Findings: Stable left-sided central venous line. Lungs are clear, without focal consolidation or ple ural effusion. Cardiomediastinal silhouette is stable. Bones and soft tissues are unremarkable. Impression: Clear lungs. Stable support line. Reviewed, dictated and finalized at location . ERY CUTTER Impression: Clear lungs. Stable support line.
--- NOTE | ~2024-11-10 | XR_ITS ---
XR shoulder RT min 2V Ordering provider: Erwin Perkins MD History: . Septic arthritis right shoulder . Comparison: None. FINDINGS: BONES: No acute fracture or dislocation. Erosive changes seen in the humeral head. The drainage ulises ter is seen in the area. JOINT SPACES: The acromioclavicular joint is normal. The glenohumeral joint is normal. SOFT TISSUES: Normal. IMPRESSION: No acute osseous abnormality right shoulder. Erosive changes in the area of the greater tuberosity of the humerus. The drainage catheter seen in t he area. Reviewed, dictated and finalized at location A. MACY CLINICAL COORDINATOR IMPRESSION: No acute osseous abnormality right shoulder. Erosive changes in the area of the greater tuberosity of the humerus. The drain age catheter seen in the area.
--- NOTE | ~2024-11-10 | CT_ITS ---
CT Scan of the Neck and Chest without Contrast: Clinical Indication: Pain Technique: Contiguous sections were acquired throughout the neck and chest without intravenous contra st. Dose reduction technique was used on this scan by utilizing automated exposure control and iterat talia reconstruction technique. The dose-length product (DLP) was 1184.63 mGy-cm. COMPARISON: 08/25/2024 Findings: Parapharyngeal fat preserved bilaterally. No cervical lymphadenopathy seen. No other soft t issue mass seen in the neck. Parotid and submandibular glands are unremarkable. Thyroid gland unremar kable. There is no evidence of any significant mediastinal, hilar or axillary lymphadenopathy. Small prevasc ular lymph nodes are present. There are extensive coronary artery calcifications. There is no evidence of pleural or pericardial effusion. Stable areas of chronic interstitial change and tiny nodules in the bilateral upper lobes, left worse than right. There is additional minimal involvement in the left lower lobe, also unchanged. Images through the upper abdomen reveal no abnormalities. Stable chronic erosive changes of the right humeral head. Percutaneous drainage catheter present anterior in the anterior deltoid region. Impression: Stable chronic interstitial changes in the lungs, as detailed above. Stable chronic erosive changes at the right humeral head with percutaneous drainage catheter in the a nterior deltoid region. Reviewed, dictated and finalized at location M. E COLORER Impression: Stable chronic interstitial changes in the lungs, as detailed above. Stable chronic erosive changes at the right humeral head with percutaneous drai nage catheter in the anterior deltoid region.
--- NOTE | 2024-11-10 01:54 | ECG_ITS ---
Test Date: 2024-11-10 01:57:19 Measurements Intervals [place] Rate: 90 P: 58 AR: 196 QRS: -12 QRSD: 92 T: 4 QT: 378 QTc: 464 Interpretive Statements SINUS RHYTHM POSSIBLE LEFT ATRIAL ENLARGEMENT [-0.1mV P-WAVE IN V1/V2] Compared to ECG 11/02/2024 10:11:00 Left-axis deviation no longer present Electronically Signed On 11-11-2024 09:00:09 MEDICAL DIAGNOSTIC RADIOGRAPHER by Aureliano Guerra M.D.
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
--- NOTE | 2024-11-10 04:15 | PC.NURSE ---
4 RNs attempted IV access and blood work. ED Charge, Johana, notified EDP and called drying tumbler operator to help assist.
[2024-11-10 04:18] LABS: Basophils Percent Auto 0.2 % (0.2-1.2); Eosinophils Absolute Auto 0.4 K/mm3 (0-0.3); Eosinophils Percent Auto 3.4 % (0-4.4); Hematocrit 37.9 % (37.0-47.0); Hemoglobin 11.9 g/dL (12.0-15.0); Immature Granulocyte Absolute 0.05 K/mm3 (0.00-0.031); Immature Granulocyte Percent A 0.4 % (0-0.5); Lymphocytes Absolute Auto 1.72 K/mm3 (0.9-3.2); Lymphocytes Percent Auto 13.8 % (18.3-44.2); Mean Corpuscular HGB Conc 31.4 g/dl (32-36); Mean Corpuscular Hemoglobin 30.1 pg (26-34); Mean Corpuscular Volume 95.9 fl (80-100); Mean Platelet Volume 9.9 fl (7.4-10.4); Monocytes Absolute Auto 0.5 K/mm3 (0.1-0.6); Monocytes Percent Auto 4.2 % (2.6-8.5); Neutrophils Absolute Auto 9.8 K/mm3 (1.3-6.7); Platelet Count Result 326 k/mm3 (150-375); Red Blood Count 3.95 M/mm3 (4.2-5.4); Red Cell Distribution Width 13.7 % (11.5-14.5); White Blood Count 12.5 K/mm3 (4.5-10.0)
[2024-11-10] MEDS: MORPHINE SULFATE (*CRX) 4 MG/ML INJ IV PUSH (04:25)
[2024-11-10 04:29] LABS: Alanine Aminotransferase 13 U/L (6-35); Albumin Level 3.2 g/dL (3.5-5.1); Alkaline Phosphatase 188 U/L (38-126); Anion Gap 12 mmol/L (4-12); Aspartate Amino Transferase 14 U/L (14-36); Bilirubin,Total 0.3 mg/dL (0.2-1.3); Blood Urea Nitrogen 61 mg/dL (7-17); Calcium 7.3 mg/dL (8.4-10.2); Carbon Dioxide 10 mmol/L (22-30); Chloride 117 mmol/L (98-107); Estimated CRCL calculation 16 ml/min; Estimated Glomerular Filt Rate 9; Glucose 347 mg/dL (65-110); Magnesium 1.8 mg/dL (1.6-2.3); Potassium 5.8 mmol/L (3.4-5.0); Sodium 139 mmol/L (137-145)
[2024-11-10 04:40] LABS: Troponin I < 0.012 ng/mL (0.000-0.034)
[2024-11-10 05:03] LABS: Influenza A QL RT-PCR Negative (Negative); Influenza B QL RT-PCR Negative (Negative); RSV RNA, RT-PCR Negative (Negative); SARS-CoV-2 RNA PCR Negative (Negative)
[2024-11-10 05:08] LABS: Procalcitonin 0.1 ng/mL
--- NOTE | 2024-11-10 08:00 | ADMGEN ---
This patient, Gay Canales, was admitted to Medical Room 349-01. Patient/family oriented to hospital policies and general routines including ID bracelet, bed and alarms, visiting hours, pain management, procedures, bathroom and other care routines, personal items, smoking policy, room service/diet, and visiting hours. Information on how to activate the Rapid Response Team has been discussed. Patient/Family are encouraged to report perceived risks to care and to ask questions if they do not understand what they are told or what they should do.
[2024-11-10 08:43] LABS: Lactic Acid Reflex 0.8 mmol/L (0.7-2.0)
[2024-11-10 08:45] LABS: INR 1.3
[2024-11-10 08:46] LABS: Partial Thromboplastin Time 29.4 Seconds (22.3-36.8)
[2024-11-10 10:21] LABS: Hepatitis B Surface Antigen Negative (Negative)
[2024-11-10 10:43] LABS: Hepatitis B Surface Anti Res Positive
[2024-11-10 13:15] LABS: CRP < 0.5 mg/dL (<1.0)
[2024-11-10 13:55] LABS: MRSA (PCR) NOT DETECTED (NOT DETECTE)
[2024-11-10 13:55] LABS: Erythrocyte Sedimentation Rate 32 mm/hr (0-20)
[2024-11-10] MEDS: HEPARIN SODIUM 1,000 UNITS/ML VIAL 3000 UNITS IV PUSH (14:13)
[2024-11-10] MEDS: HEPARIN SODIUM 1,000 UNITS/ML VIAL 1000 UNITS IV PUSH ×4 (14:16→17:16)
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
[2024-11-10] MEDS: HYDROcodone/acetaminophen (*CRX) 5-325 MG TABLET 1 TAB PO (15:18)
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
--- NOTE | 2024-11-10 16:46 | P.CONOP_ITS ---
History of Present Illness HPI Consult date: 11/10/24 Chief complaint: End-stage renal disease on dialysis missed dialysi Narrative: Patient is a 34-year-old female who was admitted to the hospital today after developing chest pain with dialysis this morning. The ER note states that she was given nitroglycerin aspirin and that her chest pain improved. I am seeing her for retained 10 Ukrainian pigtail catheter the front of her right chest. She was supposed to have it repaired at some point and she was waiting for the nurse at the infectious disease specialist all her for instructions on removal. She was seen 1 month ago. At that time she was given 1 month supply of doxycycline. She notified the staff of this issue and wanted to have the pigtail catheter removed from the anterior chest wall today while she is in the hospital. Patient was hospital in July 2024 had aspiration of the right shoulder the which grew MRSA on 07/25/2024 and had to positive MRSA blood cultures at that time. She has indwelling dialysis catheter in the left subclavian vein which may have been the source of recurrent bacteremia. X-rays and CT scan showed prominent subchondral erosions in the suggesting osteomyelitis. She was transferred to [facility] and on 07/27/2024 underwent incision and drainage right shoulder joint through the pectoral incision approximately 4 in in. I do not have the records from that hospitalization but the procedure was difference to in the hospital records from her. At that time she was admitted to have a large abscess 7 x 4 x 5 cm fluid collection and gas involving the anterior deltoid and pectoralis major muscles and on 08/31/[address]-guided placement Ukrainian pigtail catheter into the intramuscular abscess of the right shoulder says was noted to communicate through the rotator cuff interval to the shoulder joint. She was treated with intravenous send through her dialysis treatments and then switch to oral doxycycline she is not sure the plan for further treatment or suppression of her MRSA osteomyelitis right shoulder which may still be present but do not want. During that hospitalization she had MRI scan of cervical, thoracic and lumbar spine which showed no evidence infection involving the spine. She also had an MRI scan of the right shoulder on 08/29/2024 which showed osteomyelitis involving the humeral head and bone edema changes in scapular body and which could be reactive edema Sadia myelitis. The abscess in the anterior deltoid and pectoralis major was identified at that time with fluid and gas consistent with abscess She has a history of multiple bacteremic episodes with MRSA leading to multiple admissions to the [facility]. We received today records from [facility] from her admission from August 26 through September 01. Much of the history is obtained from those records which I reviewed. I obtained x-rays and CT of the right shoulder today. These showed the previously noted erosive changes in humeral head which do appear to be markedly changed. No obvious changes in the glenoid or scapula. The pain catheter is resting on the surface of the deltopectoral interval in the subcutaneous space. There is scar tissue appearance around the catheter but no obvious abscess. Patient states that drained any fluid whatsoever for the past 2 weeks. The drain tube had a few drops along its course of serous-appearing fluid. I think that it would be very appropriate to remove the catheter today. It is not communicating with the joint and is external to the muscle and it is not providing any useful function and leaving it does increased risk of developing infection from the skin as it is percutaneous. On exam I could not palpate any mass nor could I express any fluid around the catheter and there is no surrounding erythema or tenderness. Sedimentation rate today is in July sedimentation rate was 9. C-reactive protein was less than 0.5 today which is the lowest reportable. In August it was 1.5 according to the records from [facility] and it was commented that that was decreased from the month before. Patient's past medical history also significant for above knee amputation on the left in December of 2022 weeks after a left ankle disarticulation performed for healing left foot ulcer. She has a chronic nonhealing ulcer in the posterior aspect of her right heel also. Past medical history heart failure and hypertension type 2 diabetes and morbid obesity. She is 5 ft 7 in in height 120.9 kg BMI of 41.7 calculated today. Assessment and plan Patient has had a severe septic arthritis which had progressed to osteomyelitis of the humeral head with prominent erosive lesions which have been stable. Based on her C-reactive protein of 0.5 and mm minimal elevation of her sedimentation rate which is usually elevated in dialysis patients regardless of whether there is infection, it appears that her infection is well controlled at this time. Unfortunately, there is a significant risk that her infection is not eradicating but rather it is suppressed and dormant she is immuno- compromised due to end-stage renal disease type 2 diabetes. With respect to her doxycycline, the question is whether she should be on life time antibiotic suppression or not. Unfortunately I think her risk of recurrent MR SA bacteremia episodes his high since she has had numerous episodes and hospitalizations for this previous to her septic arthritis of the right shoulder which result of hematogenous seeding and since she has significant bony erosions in the right humeral head, she may have foci of meant MRSA in areas of necrotic residual bone adjacent to the lytic areas which may reactivate after her doxycycline is discontinued. Antibiotic suppression indefinitely may reduce that risk. As such I would recommend that she speak to both her treating orthopedic surgeon and her infectious disease specialist regarding her ongoing doxycycline treatment. She believes that she was going to stop the antibiotics after the prescription was completed. I have left instructions on discharge summary for her to call both her orthopedic surgeon and infectious disease specialist at [facility] to formulate a plan. Her pigtail catheter was removed without difficulty after sutures and the catheter came out intact and no purulent fluid was expressed after the catheter came out. I am going to order continuation of her doxycycline until she is advised otherwise by her [facility] orthopedic surgeon and infected stooped. 90 minutes were spent in total care this patient today, including review of EMR records and review of the [facility] records, communicating the situation to the patient and removal of the pigtail catheter and documentation. [facility] Past Medical History Medical History Septic arthritis of shoulder, left Diastolic heart failure secondary to hypertension EF 70% with grade 2 diastolic dysfunction echocardiogram August 2023 Anemia in chronic kidney disease End-stage renal disease on hemodialysis Hemodialysis initiated August 2023 Glaucoma Blind in both eyes (~03/2023) Occurred acutely March 2023 Nephrotic syndrome Diabetic neuropathy Hyperlipidemia Diabetic nephropathy with proteinuria Nephrotic range Chronic heel ulcer Chronic heel ulcer on the left foot developed November 2022 with acute decompensation and subsequent above the knee amputation, no unfortunately do developed a right heel ulcer the fall of 2022 that is been persistent CHF (congestive heart failure) Hypertension Diabetes mellitus Surgical History Surgical History Status post insertion of dialysis catheter (08/2023) Right subclavian History of left below knee amputation (~12/2022) Due to osteomyelitis Family History Family History Father Diabetes mellitus Hypertension Mother Hypertension Obesity Sibling Diabetes mellitus, Onset Age: 28 Sibling Unknown family medical history Does not see a doctor Diabetes mellitus Social History Social History Social History: The patient reports that 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 Since August 2022 she moved in with her sister. She has had a severe significant decline in her health and December 2022had left above the knee amputation. She has been in out of senior living and rehab facilities since that time. She is a lifelong nonsmoker. She used to rarely smoke marijuana. She had no significant alcohol use history. She does not have any children. Code status: DNR/DNI (per patient request) evidently during prior hospitalization when the patient became unresponsive family change the patient's code status back to (08/13/2023) full code. Surrogate decision maker: Nikkokeishapastor Nunez (sister) Smoking status: Never smoker Alcohol intake: never Substance use: former Substance use type: marijuana Do You Feel Safe in your Home?: Yes Lack of Transportation: No Lack of Food: Never True Current Housing: I Have Housing Concerned About Future Housing: No Difficulty Paying Gas/Electric Bills: No Difficulty Paying for Meds: No Currently Unemployed: No Education: High School Diploma/GED Difficulty w/ Childcare or Family Care: No Spiritual care concerns: No Meds Home Medications and Allergies Home Medications ?Medication ?Instructions ?Recorded ?Confirmed ?Type amlodipine 10 mg tablet 10 mg PO DAILY 08/04/23 11/10/24 History carvedilol 12.5 mg tablet 12.5 mg PO Q12H 08/04/23 11/10/24 History lisinopril 20 mg tablet 20 mg PO QAM 30 days #30 tabs 08/23/23 11/10/24 Rx bisacodyl 10 mg rectal suppository 10 mg RECTAL DAILY PRN Constipation 02/16/24 11/10/24 History tramadol 50 mg tablet 50 mg PO Q6H PRN Moderate Pain 02/16/24 11/10/24 History (Scale Score 5-6) acetaminophen 500 mg tablet 500 mg PO Q6H PRN Pain, Mild 05/16/24 11/10/24 History diphenhydramine HCl 25 mg capsule 25 mg PO Q8H PRN Itching 05/16/24 11/10/24 History furosemide 40 mg tablet 40 mg PO DAILY 05/16/24 11/10/24 History gabapentin 100 mg capsule 300 mg PO QMWF 05/16/24 11/10/24 History glucagon 1 mg injection kit 1 mg IM PRN PRN Hypoglycemia 05/16/24 11/10/24 History apixaban 5 mg tablet (Eliquis) 5 mg PO BID 11/10/24 11/10/24 History doxycycline hyclate 100 mg tablet 100 mg PO Q12H 11/10/24 11/10/24 History drospirenone (contraceptive) 4 mg 4 mg PO DAILY 11/10/24 11/10/24 History (28) tablet (Slynd) dulaglutide 0.75 mg/0.5 mL 0.75 mg subcut WEEKLY 11/10/24 11/10/24 History subcutaneous pen injector (Trulicity) Allergies Allergy/AdvReac Type Severity Reaction Status Date / Time No Known Allergies Allergy Verified 11/10/24 01:55 Vital Signs Vital Signs - 24 hr 11/10/24 01:42 11/10/24 01:52 11/10/24 01:52 Temperature 36.5 C Pulse Rate 91 91 Respiratory Rate 17 Blood Pressure 133/83 Pulse Oximetry 100 100 Oxygen Delivery Room Air Room Air 11/10/24 01:52 11/10/24 04:41 11/10/24 07:37 Temperature 36.5 C 36.9 C Pulse Rate 91 71 94 Respiratory Rate 18 19 16 Blood Pressure 133/83 130/72 123/84 Pulse Oximetry 100 97 95 Oxygen Delivery 11/10/24 08:00 11/10/24 08:33 11/10/24 10:30 Temperature 36.2 C L Pulse Rate 95 Respiratory Rate 18 Blood Pressure 152/85 H Pulse Oximetry 98 96 Oxygen Delivery Room Air Room Air 11/10/24 14:02 11/10/24 14:16 11/10/24 14:30 Temperature 36.8 C Pulse Rate 94 93 92 Respiratory Rate 16 Blood Pressure 158/83 H 135/80 151/77 H Pulse Oximetry 100 Oxygen Delivery 11/10/24 14:45 11/10/24 15:00 11/10/24 15:15 Temperature Pulse Rate 97 98 100 Respiratory Rate Blood Pressure 146/86 H 162/81 H 170/96 H Pulse Oximetry Oxygen Delivery 11/10/24 15:30 11/10/24 15:45 11/10/24 16:00 Temperature Pulse Rate 96 98 98 Respiratory Rate Blood Pressure 173/56 H 170/97 H 171/102 H Pulse Oximetry Oxygen Delivery 11/10/24 16:15 11/10/24 16:30 Temperature Pulse Rate 97 99 Respiratory Rate Blood Pressure 160/97 H 171/101 H Pulse Oximetry Oxygen Delivery Results Labs 11/10/24 04:13 11/10/24 04:13 Labs: Abnormal lab results 11/10/24 11/10/24 11/10/24 Range/Units 04:13 08:13 13:13 WBC 12.5 H (4.5-10.0) K/mm3 RBC 3.95 L (4.2-5.4) M/mm3 Hgb 11.9 L (12.0-15.0) g/dL MCHC 31.4 L (32-36) g/dl Neut % (Auto) 78.0 H (45.5-73.1) % Lymph % (Auto) 13.8 L (18.3-44.2) % Eos # (Auto) 0.4 H (0-0.3) K/mm3 Abs Immat Gran (auto) 0.05 H (0.00-0.031) K/mm3 Absolute Neuts (auto) 9.8 H (1.3-6.7) K/mm3 ESR 32 H (0-20) mm/hr PT 16.0 H (11.1-14.7) Seconds Potassium 5.8 H (3.4-5.0) mmol/L Chloride 117 H (98-107) mmol/L Carbon Dioxide 10 L (22-30) mmol/L BUN 61 H D (7-17) mg/dL Creatinine 6.39 H (0.7-1.0) mg/dL Estimated GFR 9 L (59 - ) Glucose 347 H (65-110) mg/dL Calcium 7.3 L (8.4-10.2) mg/dL Alkaline Phosphatase 188 H (38-126) U/L Albumin 3.2 L (3.5-5.1) g/dL H & H 11/10/24 Range/Units 04:13 Hgb 11.9 L (12.0-15.0) g/dL Hct 37.9 (37.0-47.0) % Coagulation 11/10/24 Range/Units 08:13 INR 1.3 All other labs normal.
[2024-11-10] MEDS: HEPARIN SODIUM 1,000 UNITS/ML VIAL 6000 UNITS IV PUSH (18:30)
[2024-11-10 18:49] LABS: Glucose Point of Care 135 mg/dl (65-105)
[2024-11-10] MEDS: amLODIPine BESYLATE 10 MG TABLET PO (18:49)
[2024-11-10] MEDS: carvediloL 12.5 MG TABLET PO (20:59)
[2024-11-10] MEDS: traMADol HCL (*CRX) 50 MG TABLET PO (21:00)
[2024-11-10] MEDS: APIXABAN 5 MG TABLET PO (21:01)
[2024-11-10 21:58] LABS: Glucose Point of Care 194 mg/dl (65-105)
[2024-11-10] MEDS: diphenhydrAMINE HCl CAP 25 MG CAPSULE PO (23:10)
[2024-11-11 06:00] VITALS: BP 126/80; PULSE 97; RESP 16; TEMP 36.3; O2SAT 100
[2024-11-11] MEDS: HYDROmorphone HCL INJ (*CRX) 1 MG/ML SYR IV PUSH (06:57)
[2024-11-11] MEDS: ONDANSETRON INJ 4 MG/2 ML VIAL IV PUSH ×2 (08:53→12:23)
[2024-11-11 09:47] VITALS: PULSE 97
[2024-11-11] MEDS: carvediloL 12.5 MG TABLET PO (09:47)
[2024-11-11] MEDS: lisinopriL 20 MG TABLET PO (09:47)
[2024-11-11] MEDS: amLODIPine BESYLATE 10 MG TABLET PO (09:47)
[2024-11-11] MEDS: APIXABAN 5 MG TABLET PO (09:47)
[2024-11-11] MEDS: INSULIN ASPART (*BKC) 100 UNITS/ML SUB-Q ×2 (09:51→12:20)
[2024-11-11 09:53] LABS: Glucose Point of Care 296 mg/dl (65-105)
[2024-11-11 11:54] LABS: Glucose Point of Care 290 mg/dl (65-105)
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
[2024-11-11] MEDS: traMADol HCL (*CRX) 50 MG TABLET PO (13:03)
[2024-11-11 14:21] VITALS: BP 105/62; PULSE 94; RESP 17; TEMP 36.1; O2SAT 97
--- OUTSIDE RECORDS SUMMARY | 2024-11-17 02:57 | XMS_ITS | Referral Summary ---
Author Organization [facility] Address [address] [place] [address] Care Team Providers Care Histology Tech Name Role Phone Cherise Patrick PA-C Primary Care Provider Source Comments [facility],non-owned Affiliates and Associated Physician Practices is amultiple site organization consisting of ambulatory clinics and hospital sitesin [place], [place], [place] and [place]. This disclosure is being madepursuant to the Care Everywhere program and may not contain all information available regarding this patient. Last updated 18.[facility] Encounters Date Type Department Care Team Description 10/11/2024 Travel 10/11/2024 3:30 PM 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 SUPERVISOR Office Visit [facility] - Infectious Disease [address] [place] [address] [phone] Kash Ha MD MRSA bacteremia (Primary Dx); 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HCC); ESRD (end stage renal disease) on dialysis (HCC); ESR raised; CRP elevated 09/28/2024 Telephone [facility] - Infectious Disease [address] [place] [address] [phone] Gail Bueno, JIMMIE Appointment 09/28/2024 Travel 09/28/2024 Telephone [facility] - Infectious Disease [address] [place] [address] [phone] Gail Bueno, RN Appointment 09/23/2024 Telephone [facility] TRANSPLANT [address] [place] [address] Fiona Schneider, RN Kidney Transplant Evaluation 09/23/2024 Transitional Care [facility] CARE COORDINATION [address] [place] [address] Ewa Blake, JIMMIE Transitions Of Care 09/22/2024 Telephone [facility] - Infectious Disease [address] [place] [address] Gail Bueno, RN Appointment 09/17/2024 Telephone [facility] - Infectious Disease [address] [place] [address] Kash Ha MD 2024 Telephone [facility] - Infectious Disease [address] [place] [address] Kash Ha MD Medication Clarification 09/07/2024 Telephone [facility] - Allergy [address] [place] [address] Nohemi Valenzuela PA-C Results 09/02/2024 Transitional Care [facility] CARE COORDINATION [address] [place] [address] Ewa Blake, JIMMIE Transitions Of Care 09/01/2024 Telephone [facility] - Allergy [address] [place] [address] Roxanna Roth PA-C Appointment 08/26/2024 4:27 PM CDT - 09/01/2024 4:54 PM CDT Hospital Encounter [facility] [address] [place] [phone] Penny Morris MD Demars, MD Gregory Rojas Chad S, MD Albrecht, Ryan, DO Bhalla, Kishley, MD Masud, José Hawkins MD Surgery Orthopedics Discharge Disposition: Home Health Care [facility] 08/26/2024 Travel 08/25/2024 Travel 08/25/2024 6:33 PM CDT - 08/25/2024 6:34 PM CDT Emergency [facility] EMERGENCY DEPARTMENT [address] [place] [address] Discharge Disposition: Left Against Medical Advice/Discontinued Care 08/24/2024 Orders Only [facility] - Infectious Disease [address] [place] [phone] Kash Ha MD Hypertension, unspecified type 08/23/2024 Travel 08/23/2024 2:30 PM CDT Office Visit [facility] - Infectious Disease [address] [place] [phone] Kash Ha MD MRSA bacteremia (Primary Dx); 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[facility]); Induration of skin; Hypertension, unspecified type; Chronic heel ulcer, right, with unspecified severity ([facility]); Other chronic osteomyelitis of right humerus ([facility]); ESRD (end stage renal disease) on dialysis ([facility]); Acute deep vein thrombosis (DVT) of right upper extremity, unspecified vein ([facility]) 08/18/2024 Telephone [facility] - Allergy [address] [place] [phone] Nohemi Valenzuela PA-C LABS ONLY from Last 3 Months Allergies No known active allergies Medications * Be aware that medications may not be up to date on this document. Alwaysverify current medications with the patient. Medication Sig Dispensed Refills Start Date End Date Status blood glucose (OneTouch Verio) test stripIndications: Hyperglycemia USE ONE STRIP TO TEST BLOOD SUGAR FOUR TIMES DAILY 100 strip 12/12/2022 Active Additional Information Patient not taking.Reason: Other (not checking sugar), Informant: Patient, Reported on 08/27/2024 Alcohol Swabs (Alcohol Prep) 70 % USE ONE SWAB TO CLEAN SKIN FOUR TIMES DAILY BEFORE TESTING 100 Each 12/12/2022 Active Additional Information Patient not taking.Reason: Patient adjusted, Informant: Patient, Reported on 08/27/2024 Lancets (ONETOUCH DELICA PLUS 33G EXTRA FINE LANCET)Indication s:Hyperglycemia USE ONE LANCET TO PRICK FINGER FOUR TIMES DAILY FOR BLOOD GLUCOSE TESTING 100 Each 12/12/2022 Active Additional Information Patient not taking.Reason: Patient adjusted, Informant: Patient, Reported on 08/27/2024 Blood Glucose Monitoring Suppl (ClrTouchio Reflect) w/Device KITIndications:[facility] WHEN DELIVERING X4364 Use 1 kit 4 times daily USE METER TO CHECK BLOOD GLUCOSE FOUR TIMES DAILY Reasons: CALL [facility] WHEN DELIVERING X4364 1 kit 12/12/2022 Active Additional Information Patient not taking.Reason: Patient adjusted, Informant: Patient, Reported on 08/27/2024 sevelamer carbonate (Renvela) 800 MG Take 1 (one) tablet by mouth 3 times daily with meals 02/28/2024 Active renal vitamin (Dialyvite) tablet Take 1 (one) tablet by mouth once daily 02/28/2024 Active gabapentin (Neurontin) 300 MG capsule Take 1 (one) capsule by mouth every Friday, Friday & Friday 30 capsule 08/09/2024 Active Gauze Pads & Dressings (Gauze Dressing) 4 X4 PADS Use 1 Pad every 2 days Apply to right shoulder, change dressing every 48 hours, sooner if needed. 24 Each 1 08/09/2024 Active lisinopril (Prinivil; Zestril) 20 MG tabletIndications :Hypertension, unspecified type Take 1 (one) tablet by mouth once daily 30 tablet 08/24/2024 Active oxyCODONE, immediate release, (Roxicodone) 10 MG tabletIndications :Acute Pain Take 1 (one) tablet by mouth every 4 hours as needed Reasons: Acute Pain 16 tablet 08/31/2024 Active acetaminophen (Tylenol) 325 MG tablet Take 2 (two) tablets by mouth every 6 hours as needed for Fever, Pain or Headache Maximum allowable Acetaminophen amount = 4 Grams (4000 mg) / 24 hours. 09/01/2024 Active apixaban (Eliquis) 5 MG tablet Take 1 (one) tablet by mouth 2 times daily for 30 days 60 tablet 09/01/2024 Active carvedilol (Coreg) 25 MG tablet Take 1 (one) tablet by mouth 2 times daily with morning and evening meal for 30 days 60 tablet 09/01/2024 Active amLODIPine (Norvasc) 10 MG tablet Take 1 (one) tablet by mouth once daily for 30 days 30 tablet 09/01/2024 Active furosemide (Lasix) 40 MG tablet Take 1 (one) tablet by mouth every Friday, , & Friday for 30 days 12 tablet 09/02/2024 Active doxycycline hyclate 100 MG tabletIndications :Methicillin-Resi stant S. aureus Septic Arthritis Take 1 (one) tablet by mouth 2 times daily for 28 days Reasons: Methicillin-Resista nt S. aureus Septic Arthritis 56 tablet 10/11/2024 Active Problems Problem Noted Date Diagnosed Date Chronic osteomyelitis of right shoulder region 1 ESR raised 08/26/2024 Type 2 diabetes mellitus wit h diabetic polyneuropathy, without long-term current use of insulin 08/26/2024 Chronic bilateral back pain, unspecified back lo cation 08/26/2024 Osteomyelitis of right foot 07/29/2024 Chronic ulcer of right heel 07/28/2024 Sepsis due to methicillin re sistant Staphylococcus aureus (MRSA) 07/27/2024 Dyslipidemia 07/27/2024 Obesity, Class II, BMI 35-39.9 07/27/2024 Hyponatremia 07/27/2024 Hyperkalemia 07/27/2024 Hyperphosphatemia 07/27/2024 Hypocalcemia 07/27/2024 Acute pain of right shoulder 07/26/2024 Septic arthritis of shoulder, right 07/25/2024 Pneumonia of both lungs due to infectious organism, unspecified part of lung 07/25/2024 Osteomyelitis of left shoulder, unspecified type 05/15/2024 Hypoalbuminemia 02/28/2024 ESRD (end stage renal disease) 02/23/2024 Type 2 diabetes mellitus wit h skin complication, with long-term current use of insulin 02/23/2024 Insomnia 02/23/2024 Abscess of left shoulder 02/23/2024 Leukocytosis 02/23/2024 Arthritis of right shoulder due to other bacteri a 02/22/2024 Thrombophlebitis 05/21/2023 Acute on chronic congestive heart failure, unspecified heart failure type 05/18/2023 Swelling of right upper extremity 05/18/2023 Anemia 04/27/2023 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 04/24/2023 S/P AKA (above knee amputation) unilateral, left 12/19/2022 MRSA bacteremia 12/04/2022 Left foot infection 12/02/2022 Hypoxia 12/02/2022 Essential hypertension 12/02/2022 Swelling of left foot 12/02/2022 Severe recurrent major depre ssion without psychotic features 08/22/2022 PTSD (post-traumatic stress disorder) 08/22/2022 CHF (congestive heart failure) 08/22/2022 Intentional overdose of drug in tablet form 08/03 Type 2 diabetes mellitus with diabetic polyneuro maryanne 04/23/2010 Immunizations Name Administration Dates Next Due DTP, HISTORIC VACCINE 05/08/1994, 993,02/16/1993,12/19 HEP B VACCINE, PED/ADOL 03/06/1994,07/27/1993, HIB VACCINE 01/04/1994, 3,02/16/1993,12/19 Human Papilloma Virus Bivalent Vaccine 8,04/25/2008 MENINGOCOCCAL VACCINE 04/25/2008 MMR VACCINE 01/04/1994 POLIO OPV 03/06/1994, 3,02/16/1993,12/19 TDAP (7yrs+) 12/02/2022 TDAP, HISTORIC VACCINE 08/14/2006 VARICELLA 04/25/2008,08/13/2007 Social History Tobacco Use Types Packs/Day Years Used Date Smoking Tobacco: Former Cigarettes S tarted: 2010 Smokeless Tobacco: Never Tobacco Cessation:Counseling Given: Not Answered Comments:Quit 4-5 months after starting Alcohol Use Standard Drinks/Week Comments Not Currently 0 (1 standard drink = 0.6 oz pur e alcohol) Occassionally AUDIT-C Answer Date Recorded Q1: How often do you have a drink containing alcohol? Never 07/26/2024 Q2: How many drinks containi ng alcohol do you have on a typical day when you are drinking? Patient does not drink Q3: How often do you have si x or more drinks on one occasion? Never 07/26/2024 Overall Financial Resource Strain (CARDIA) Answe r Date Recorded How hard is it for you to pa y for the very basics like food, housing, medical care, and heating? Not hard at all 07/26/2024 PHQ-2 Answer Date Recorded PHQ2 TOTAL SCORE 0 06/10/2023 [facility] Occupat ional Health - Occupational Stress Questionnaire Answer Date Recorded Do you feel stress - tense, restless, nervous, or anxious, or unable to sleep at night because your mind is troubled all the time - these days? Not at all 07/26/2024 Hunger Vital Sign Answer Date Recorded Within the past 12 months, y ou worried that your food would run out before you got the money to buy more. Never true 07/26/20 24 Within the past 12 months, t he food you bought just didn't last and you didn't have money to get more. Never true 07/26/2024 PRAPARE - Transportation Answer Date Re corded In the past 12 months, has l ack of transportation kept you from medical appointments or from getting medications? No 07/05 In the past 12 months, has l ack of transportation kept you from meetings, work, or from getting things needed for daily living? No 07/26/2024 Housing Stability Vital Sign Answer Ibrahima e Recorded In the last 12 months, was t here a time when you were not able to pay the mortgage or rent on time? No 07/26/2024 In the last 12 months, how many places have you lived? 2 07/26/2024 In the last 12 months, was t here a time when you did not have a steady place to sleep or slept in a senior care (including now)? No 07/26/2024 Sex and Gender Information Value Date Recorded Sex Assigned at Not on file Gender Identity Not on file Sexual Orientation Not on file Last Filed Vital Signs Vital Sign Reading Time Taken Comments Blood Pressure 136/86 10/11/2024 4:17 PM 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 SUPERVISOR Pulse 92 10/11/2024 4:17 PM 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 SUPERVISOR Temperature 36.5 ??C (97.7 ??F) 10/11/2024 4:17 PM CS T Respiratory Rate 18 10/11/2024 4:17 PM 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 SUPERVISOR Oxygen Saturation 98% 10/11/2024 4:17 PM 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 SUPERVISOR Inhaled Oxygen Concentration - - Weight 112.9 kg (249 lb) 10/11/2024 4:17 PM 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 SUPERVISOR Height 170.2 cm (5' 7 ) 10/11/2024 4:17 PM 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 SUPERVISOR Body Mass Index 39 10/11/2024 4:17 PM 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 SUPERVISOR Functional Status Functional Status Response Date of Assess ment Is person deaf or have serious hearing difficult y? No 07/26/2024 Is person blind or have serious difficulty seein g? No 07/26/2024 Does person have serious dif ficulty walking/climbing stairs? No 07/26/2024 Does person have difficulty dressing/bathing? No 07/26/2024 Does person have difficulty doing errands alone? No 07/26/2024 Cognitive Status Response Date of Assessm ent Does person have difficulty concentrating/remembering/making decisions? No 07/26/2024 Plan of Treatment Upcoming Encounters Date Type Department Care Team (Late st Contact Info) Description 11/22/2024 1:30 PM 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 SUPERVISOR Office Visit [facility] - Infectious Disease [address] [place] [address], [place] [address] Kash Ha MD [address] [place] [id number] Medical Devices Implanted Type Area Spinner Tender Device Identifier Shelf Expiration Date Model / Serial / Lot Kit Durathane Drflw Embosafe Chrnc Dlys Implanted:Qty: 1 on 02/25/2024 by Artie Harmon MD at [facility] Right: Chest [employer] 07/03/2026 [id number] / / [id number] Description:IMPLANTED BY DR. JUAN Gill Durathane Drflw Embosafe Chrnc Dlys Implanted:Qty: 1 on 08/06/2024 by Artie Harmon MD at [facility] Left: Chest Wall [employer] 07/03/2026 [id number] / / [id number] Description:Implanted in the left chest wall, via the [facility], by Dr. Candy Harmon. Procedures Procedure Name Priority Date/Time Associated Diagnosis Comments ERYTHROCYTE SEDIMENTATION RATE Routine 10/11/2024 4:43 PM 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 SUPERVISOR 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HCC) MRSA bacteremia C-REACTIVE PROTEIN Routine 10/11/2024 4: 43 PM 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 SUPERVISOR 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HCC) MRSA bacteremia COMPREHENSIVE METABOLIC PANEL Routine 10/11/2024 4:43 PM 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 SUPERVISOR 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HCC) MRSA bacteremia CBC W AUTO DIFFERENTIAL Routine 10/11/20 4:43 PM 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 SUPERVISOR 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HCC) MRSA bacteremia LAB RESULTS ORDER 09/27/2024 GLUCOSE - POINT OF CARE Routine 09/01/20 1:19 PM CDT GLUCOSE - POINT OF CARE Routine 09/01/20 8:04 AM CDT HEMODIALYSIS INPATIENT Routine 8:03 AM CDT VANCOMYCIN LEVEL RANDOM Timed 09/01/20 6:38 AM CDT MRSA bacteremia GLUCOSE - POINT OF CARE Routine 08/31/20 7:47 PM CDT CBC W AUTO DIFFERENTIAL Routine 08/31/20 7:18 PM CDT MAGNESIUM BLOOD Routine 08/31/2024 7:18 PM CDT RENAL FUNCTION PANEL Routine 08/31/2024 7:18 PM CDT GLUCOSE - POINT OF CARE Routine 08/31/20 4:58 PM CDT GLUCOSE - POINT OF CARE Routine 08/31/20 12:33 PM CDT GLUCOSE - POINT OF CARE Routine 08/31/20 7:55 AM CDT HCG BETA BLOOD QUANTITATIVE MONICA 08/31/2024 6:22 AM CDT Pre-op exam CBC W AUTO DIFFERENTIAL Routine 08/31/20 6:22 AM CDT MAGNESIUM BLOOD Routine 08/31/2024 6:22 AM CDT RENAL FUNCTION PANEL Routine 08/31/2024 6:22 AM CDT GLUCOSE - POINT OF CARE Routine 08/30/20 9:12 PM CDT HEMODIALYSIS INPATIENT Routine 3:[address] US GUIDED NEEDLE PLACEMENT Routine 08/30/2024 3:23 PM CDT Osteomyelitis of right shoulder, unspecified type (HCC) MRSA bacteremia Chronic osteomyelitis of right shoulder region (HCC) Acute pain of right shoulder Abscess of right shoulder CULTURE ANAEROBE Routine 08/30/2024 3:13 PM CDT CULTURE FLUID+GRAM STAIN STAT 08/30/2024 3:13 PM CDT HCG URINE QUAL POCT NOTIFICATION STAT 08/30/2024 1:58 PM CDT GLUCOSE - POINT OF CARE Routine 08/30/20 12:30 PM CDT GLUCOSE - POINT OF CARE Routine 08/30/20 8:01 AM CDT GLUCOSE - POINT OF CARE Routine 08/29/20 10:15 PM CDT CBC W AUTO DIFFERENTIAL Routine 08/29/20 8:24 PM CDT MAGNESIUM BLOOD Routine 08/29/2024 8:24 PM CDT RENAL FUNCTION PANEL Routine 08/29/2024 8:24 PM CDT GLUCOSE - POINT OF CARE Routine 08/29/20 4:56 PM CDT GLUCOSE - POINT OF CARE Routine 08/29/20 12:13 PM CDT MRI SHOULDER RIGHT WWO CONT Routine 08/29/2024 11:09 AM CDT Osteomyelitis of right shoulder, unspecified type (HCC) GLUCOSE - POINT OF CARE Routine 08/29/20 8:18 AM CDT HEMOGLOBIN A1C Routine 08/28/2024 8:29 PM CDT CBC W AUTO DIFFERENTIAL Routine 08/28/20 8:29 PM CDT MAGNESIUM BLOOD Routine 08/28/2024 8:29 PM CDT RENAL FUNCTION PANEL Routine 08/28/2024 8:29 PM CDT GLUCOSE - POINT OF CARE Routine 08/28/20 4:37 PM CDT GLUCOSE - POINT OF CARE Routine 08/28/20 11:48 AM CDT HEMODIALYSIS INPATIENT Routine 2:27 PM CDT PT EVAL AND TREAT Routine 08/27/2024 1:4 9 PM CDT OT EVAL AND TREAT Routine 08/27/2024 1:4 9 PM CDT VANCOMYCIN LEVEL RANDOM STAT 08/27/20 12:22 PM CDT Swelling of right upper extremity MRI CERVICAL SPINE WWO CONT STAT 08/27/2024 2:53 AM CDT Swelling of right upper extremity MRI LUMBAR SPINE WWO CONTRAST STAT 08/27/2024 2:52 AM CDT Swelling of right upper extremity MRI THORACIC SPINE WWO CONT STAT 08/27/2024 2:49 AM CDT Swelling of right upper extremity COMPREHENSIVE METABOLIC PANEL STAT 08/26/2024 11:12 PM CDT CBC W AUTO DIFFERENTIAL STAT 08/26/20 11:12 PM CDT PATHOLOGY SMEAR BODY FLUID STAT 08/26/2024 9:15 PM CDT PATHOLOGY SMEAR BODY FLUID STAT 08/26/2024 9:15 PM CDT DIFFERENTIAL MANUAL FLUID STAT 08/26/2024 9:15 PM CDT CRYSTAL INDENTIFICATION SYNOVIAL FLUID STAT 08/26/2024 9:15 PM CDT CELL COUNT W DIFFERENTIAL FLUID STAT 08/26/2024 9:15 PM CDT XR SHOULDER RIGHT 2VW OR MORE STAT 08/26/2024 8:11 PM CDT Swelling of right upper extremity ERYTHROCYTE SEDIMENTATION RATE STAT 08/25/2024 12:18 PM CDT CULTURE BLOOD Timed 08/25/2024 10:05 AM CDT SARS-COV-2 (COVID-19)+INFLU A+B PCR RAPID STAT 08/25/2024 10:05 AM CDT LIPASE BLOOD STAT 08/25/2024 9:50 AM CDT MAGNESIUM BLOOD STAT 08/25/2024 9:50 AM CDT C-REACTIVE PROTEIN MONICA 08/25/2024 9: 50 AM CDT COMPREHENSIVE METABOLIC PANEL STAT 08/25/2024 9:50 AM CDT CBC W AUTO DIFFERENTIAL STAT 08/25/20 9:50 AM CDT CULTURE BLOOD Timed 08/25/2024 9:50 AM CDT CBC W AUTO DIFFERENTIAL Routine 08/23/20 3:22 PM CDT 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HCC) C-REACTIVE PROTEIN Routine 08/23/2024 3: 16 PM CDT 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HCC) ERYTHROCYTE SEDIMENTATION RATE Routine 08/23/2024 3:16 PM CDT 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HCC) HEPATITIS C AB SCREEN RFLX NAAT QUANT Routine 05/31/2024 6:38 PM CDT HIV-1 HIV-2 ANTIBODY + HIV P24 AG PANEL STAT 02/24/2024 8:57 AM CDT from Last 3 Months or Most Recently Relevant to Health Maintenance Results * C-REACTIVE PROTEIN (10/11/2024 4:43 PM 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 SUPERVISOR) Only the most recent of3 resultswithin the time period is included. Pathologist [facility] C-Reactive Protein 0.5 <=0.5 mg/dL 10/11/2024 5:45 PM 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 SUPERVISOR [facility] Blood BLOOD SPECIMEN / Unknown Lab Venipuncture / Unknown 10/11/2024 4:43 PM 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 SUPERVISOR 10/11/2024 5:02 PM 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 SUPERVISOR Kash Ha MD LAB - CHEMISTRY ORDE RABLIZA Performing Organization Address City/[facility]/ZIP Co de Phone Number [address] [address], [facility] [phone] * (ABNORMAL) ERYTHROCYTE SEDIMENTATION RATE (10/11/2024 4:43 PM 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 SUPERVISOR) Only the most recent of3 resultswithin the time period is included. [facility] Erythrocyte Sedimentation Rate Westergren 87(H) 0 - 20 MM/HR 10/11/2024 5:27 PM 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 SUPERVISOR [facility] Blood BLOOD SPECIMEN / Unknown Lab Venipuncture / Unknown 10/11/2024 4:43 PM 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 SUPERVISOR 10/11/2024 5:02 PM 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 SUPERVISOR Kash Ha MD LAB - HEMATOLOGY ORD ERABLES Performing Organization Address City/[facility]/ZIP Co de Phone Number [address] [address], [facility] [phone] * (ABNORMAL) CBC WITH DIFFERENTIAL (10/11/2024 4:43 PM 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 SUPERVISOR) Only the most recent of8 resultswithin the time period is included. WBC 9.0 4.0 - 10.7 x10E9/L 10/11/2024 5:17 PM [facility] RBC Count 4.49 3.90 - 5.20 x10E12/L 10/11/2024 5:17 PM [facility] Hemoglobin 13.6 11.9 - 15.8 g/dL 10/11/2024 5:17 PM [facility] Hematocrit 45.0 34.8 - 46.1 % 10/11/2024 5:17 PM [facility] MCV 100.2(H) 80.0 - 98.0 fL 10/11/2024 5:17 PM [facility] MCH 30.3 26.7 - 33.6 pg 10/11/2024 5:17 PM [facility] MCHC 30.2(L) 31.7 - 36.3 g/dL 10/11/2024 5:17 PM [facility] RDW-CV 15.4(H) 11.3 - 14.8 % 10/11/2024 5:17 PM [facility] Platelet Count 398 150 - 420 x10E9/L 10/11/2024 5:17 PM [facility] MPV 9.2 7.8 - 11.4 fL 10/11/2024 5:17 PM [facility] Neutrophil % 65.3 41.0 - 74.0 % 10/11/2024 5:17 PM [facility] Lymphocyte % 19.8 17.0 - 47.0 % 10/11/2024 5:17 PM [facility] Monocyte % 6.8 3.0 - 11.0 % 10/11/2024 5:17 PM [facility] Eosinophil % 6.8 0.0 - 7.0 % 10/11/2024 5:17 PM [facility] Basophil % 0.4 0.0 - 1.6 % 10/11/2024 5:17 PM [facility] Immature Granulocytes % 0.9 0.0 - 1.0 % 10/11/2024 5:17 PM [facility] Neutrophil Absolute 5.85 1.60 - 7.50 x10E9/L 10/11/2024 5:17 PM [facility] Lymphocyte Absolute 1.77 1.00 - 4.40 x10E9/L 10/11/2024 5:17 PM [facility] Monocyte Absolute 0.61 0.15 - 1.00 x10E9/L 10/11/2024 5:17 PM [facility] Eosinophil Absolute 0.61(H) 0.00 - 0.60 x10E9/L 10/11/2024 5:17 PM [facility] Basophil Absolute 0.04 0.00 - 0.13 x10E9/L 10/11/2024 5:17 PM [facility] Blood BLOOD SPECIMEN / Unknown Lab Venipuncture / Unknown 10/11/2024 4:43 PM 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 SUPERVISOR 10/11/2024 5:02 PM 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 SUPERVISOR Kash Ha MD LAB - HEMATOLOGY ORD ERABLES [facility] [address] [place] [address], [facility] [phone] * (ABNORMAL) COMPREHENSIVE METABOLIC PANEL (10/11/2024 4:43 PM 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 SUPERVISOR) Only the most recent of3 resultswithin the time period is included. BUN 18 7 - 26 mg/dL 10/11/2024 5:45 PM [facility] Creatinine 4.01(H) 0.56 - 0.96 mg/dL 10/11/2024 5:45 PM [facility] Sodium 135(L) 136 - 145 mmol/L 10/11/2024 5:45 PM [facility] Potassium 5.8(H) 3.5 - 4.5 mmol/L 10/11/2024 5:45 PM [facility] Chloride 107 98 - 107 mmol/L 10/11/2024 5:45 PM [facility] CO2 21(L) 22 - 29 mmol/L 10/11/2024 5:45 PM [facility] Glucose 161(H) 70 - 99 mg/dL 10/11/2024 5:45 PM [facility] Calcium 8.7 8.4 - 10.2 mg/dL 10/11/2024 5:45 PM [facility] Protein Total 8.3 6.0 - 8.3 g/dL 10/11/2024 5:45 PM [facility] Albumin 3.1(L) 3.4 - 5.0 g/dL 10/11/2024 5:45 PM [facility] Bilirubin Total 0.3 0.2 - 1.2 mg/dL 10/11/2024 5:45 PM [facility] Alkaline Phosphatase 207(H) 40 - 150 U/L 10/11/2024 5:45 PM [facility] ALT 18 5 - 55 U/L 10/11/2024 5:45 PM [facility] AST 14 5 - 34 U/L 10/11/2024 5:45 PM [facility] Anion Gap 7 6 - 16 10/11/2024 5:45 PM [facility] BUN/Creatinine Ratio 4(L) 7 - 23 10/11/2024 5:45 PM [facility] Osmolality Calculated 285 275 - 295 mOsm/kg 10/11/2024 5:45 PM [facility] Albumin/Globulin Ratio 0.6(L) 1.1 - 2.3 10/11/2024 5:45 PM [facility] eGFR by CKD-EPI 15(L) >=90 mL/min/1.7 3 m2 10/11/2024 5:45 PM [facility] Blood BLOOD SPECIMEN / Unknown Lab Venipuncture / Unknown 10/11/2024 4:43 PM 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 SUPERVISOR 10/11/2024 5:02 PM 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 SUPERVISOR Kash Ha MD LAB - CHEMISTRY DIVINA OLVERA [facility] Organization Address City/State/ZIP Co de Phone Number [facility] [address] [place] [address], [facility] [phone] * LAB RESULTS ORDER (09/27/2024) 09/27/2024 Narrative 09/27/2024 Ordered by an unspecified provider. Scanned Document LAB - THERAPEUTIC DR UG MONITORING ORDERABLES * (ABNORMAL) GLUCOSE - POINT OF CARE (09/01/2024 1:19 PM CDT) Only the most recent of15 resultswithin the time period is included. Pathologist [facility] Glucose WB/POC 163(H) 70 - 99 mg/dL 09/01/2024 1:24 PM CDT [facility] Specimen Type Cap Fingerstick 2023 1:24 PM CDT [facility] Blood BLOOD SPECIMEN / Unknown 09/01/2024 1:19 PM CDT 09/01/2024 1:24 PM CDT José Damian MD LAB - POINT OF CARE ORDERABLES Performing Organization Address City/[facility]/ZIP Co de Phone Number [address] [address], [place] [phone] * VANCOMYCIN LEVEL RANDOM (09/01/2024 6:38 AM CDT) Only the most recent of2 resultswithin the time period is included. [facility] Vancomycin Random 19.9 Therapeutic Ranges not established for random specimens ug/mL 09/01/2024 8:06 AM CDT [facility] Blood BLOOD SPECIMEN / Unknown Lab Venipuncture / Unknown 09/01/2024 6:38 AM CDT 09/01/2024 7:56 AM CDT Narrative [facility] - 09/01/2024 8:06 AM CDT See institution protocol. Harpreet Katz DO LAB - CHEMISTRY [place] [address] [address], [place] [phone] * (ABNORMAL) RENAL FUNCTION PANEL (08/31/2024 7:18 PM CDT) Only the most recent of4 resultswithin the time period is included. [facility] BUN 31(H) 7 - 26 mg/dL 08/31/2024 8:37 PM CDT [facility] Creatinine 5.54(H) 0.56 - 0.96 mg/dL 08/31/2024 8:37 PM [facility] Sodium 138 136 - 145 mmol/L 08/31/2024 8:37 PM [facility] Potassium 5.2(H) 3.5 - 4.5 mmol/L 08/31/2024 8:37 PM [facility] Chloride 103 98 - 107 mmol/L 08/31/2024 8:37 PM [facility] CO2 20(L) 22 - 29 mmol/L 08/31/2024 8:37 PM [facility] Glucose 179(H) 70 - 99 mg/dL 08/31/2024 8:37 PM [facility] Albumin 2.3(L) 3.4 - 5.0 g/dL 08/31/2024 8:37 PM [facility] Calcium 8.1(L) 8.4 - 10.2 mg/dL 08/31/2024 8:37 PM [facility] Phosphorus 5.3(H) 2.9 - 5.1 mg/dL 08/31/2024 8:37 PM [facility] Anion Gap 15 6 - 16 08/31/2024 8:37 PM [facility] BUN/Creatinine Ratio 6(L) 7 - 23 08/31/2024 8:37 PM [facility] Osmolality Calculated 297(H) 275 - 295 mOsm/kg 08/31/2024 8:37 PM [facility] eGFR by CKD-EPI 10(L) >=90 mL/min/1.7 3 m2 08/31/2024 8:37 PM [facility] Blood BLOOD SPECIMEN / Unknown Lab Venipuncture / Unknown 08/31/2024 7:18 PM CDT 08/31/2024 8:23 PM CDT Noe Rabago MD LAB - CHEMISTRY DIVINA OLVERA [facility] Organization Address City/State/ZIP Co de Phone Number [facility] [address] [place] [address], [facility] [phone] * MAGNESIUM BLOOD (08/31/2024 7:18 PM CDT) Only the most recent of5 resultswithin the time period is included. Pathologist [facility] Magnesium 2.1 1.6 - 2.6 mg/dL 08/31/2024 8:37 PM CDT [facility] Blood BLOOD SPECIMEN / Unknown Lab Venipuncture / Unknown 08/31/2024 7:18 PM CDT 08/31/2024 8:23 PM CDT Noe Rabago MD LAB - CHEMISTRY DIVINA OLVERA Performing Organization Address City/[facility]/ZIP Co de Phone Number [address] [address], [facility] [phone] * HCG BETA BLOOD QUANTITATIVE (08/31/2024 6:22 AM CDT) [facility] Beta-hCG Total Quantitative <3 mIU/mL 08/31/2024 7:30 AM CDT [facility] Comment: HCG Numeric Result Interpretation: ? Non- Females: ? < 5 mIU/mL ? Post-Menopausal Females: ??< 7 mIU/mL ? This assay is cleared for use in the early detection of only. It is not approved for any other uses such as tumor marker screening, tumor marker monitoring, etc. and should not be used for any other purposes. Blood BLOOD SPECIMEN / Unknown Lab Venipuncture / Unknown 08/31/2024 6:22 AM CDT 08/31/2024 6:51 AM CDT Sorin Veronica MD LAB - CHEMIS TRY ORDERABLES Performing Organization Address [facility] [place]/[facility]/ZIP Co de Phone Number [address] [address], [place] [phone] * CT US Guided Needle Placement (08/30/2024 3:23 PM CDT) Anatomical Region Laterality Modality Chest, Abdomen Computed Tomogra phy 08/30/2024 3:42 PM CDT Impressions 08/31/2024 9:09 AM CDT Impression: Successful ultrasound-guided placement of a 10 Japanese pigtail drainage catheter in right intramuscular abscess, as described above. The aspirate was viscous and purulent, and approximately 15 mL of fluid were drained during the procedure. I, Dr. Sorin Veronica, was present and performed/supervised the entire procedure. Sorin Kim have personally reviewed and interpreted this examination/study. > Interpreting Provider: Sorin Veronica on 08/31/2024 9:09 AM Narrative 08/31/2024 9:09 AM CDT History: 33 year old female with PMHx of recurrent MRSA bacteremia, essential HTN, T2DM, hyperlipidemia, ESRD on HD, CHF, PAD w. 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 Patient with multiple admission this year for MRSA bacteremia, most recent 07/25 - 08/09. This visit, ortho consulted in ED and completed right shoulder joint aspiration, fluid studies with low concern for active septic arthritis. MRI of right shoulder demonstrates a 7.6X4.0X5.7 peripherally enhancing fluid collection containing gas in the anterior soft tissue involving deltoid and pectoralis muscles. VIR consulted for abscess aspiration with possible drain placement. Of note, the patient was instructed to get a test (b-HcG) prior to the procedure for concern of teratogenicity as she is child bearing age. Patient was not able to make enough urine prior to the procedure and she understood the risks/benefits of getting the procedure with radiation if by the small chance she may be . She wished to proceed ahead with the procedure. Operators: 1.Dr. Sorin Veronica, Attending Physician 2.Dr. Chris MCDONNELL, Resident Physician Anesthesia: 1.Local anesthesia - 10 mL of 1% lidocaine Procedure: 1.Limited ultrasound evaluation of the right shoulder. 2.Ultrasound-guided placement of an 10French pigtail drainage catheter, Wing Delcid, in the right intramuscular shoulder abscess. Procedure in detail: The procedure, risks, and possible complications were explained to the patient in detail, and informed consent was obtained. The patient was placed in a supine position on the procedure table and a limited ultrasound evaluation of the right shoulder was performed, demonstrating multiple foci of gas and well circumscribed mixed echogenicity fluid collection within the muscular wall of the right shoulder. A percutaneous entry site was marked on the skin. The marked site and skin around the region of interest was prepped and draped in sterile fashion. A pre-procedure timeout was performed. Local anesthesia was provided with 1% Lidocaine. ??A 5 Japanese coaxial needle system was advanced in stages under real time ultrasound guidance. Upon aspiration, the outer-sheath was advanced within the abscess. An attempt was made for aspiration with a 5 Japanese catheter without success. Shortly after, a 0.035 wire was advanced through the sheath and following a series of exchanges, an 10 Japanese pigtail drainage catheter was advanced within the collection. The initial aspirate was purulent and thick, and approximately 15 mL of fluid were drained during the procedure. An appropriate amount of aspirate was sent for necessary laboratory work up. The catheter was connected to suction drainage and secured using 2-0 Prolene suture. Post-drainage limited ultrasound evaluation showed the catheter in satisfactory position. The patient tolerated the procedure well and was transferred to the holding area in stable condition. There were no immediate complications associated with the procedure. Procedure Note Sorin Veronica MD - 08/31/2024 History: 33 year old female with PMHx of recurrent MRSA bacteremia, essential HTN, T2DM, hyperlipidemia, ESRD on HD, CHF, PAD w. Non healing right foot ulcer, left foot necrotizing soft tissue infection s/p leftAKA who presented 08/26/[facility] with worsening [facility] plain. Patientwith multiple admission this year for MRSA bacteremia, most recent 07/25 -08/09. This visit, ortho consulted in ED and completed right shoulder joint aspiration, fluid studies with low concern for active septic arthritis.MRI of right shoulder demonstrates a 7.6X4.0X5.7 peripherally enhancingfluid collection containing gas in the anterior soft tissue involving deltoidand pectoralis muscles. VIR consulted for abscess aspiration with possible drain placement. Of note, the patient was instructed to get a test (b-HcG) prior to the procedure for concern of teratogenicity as sheis child bearing age. Patient was not able to make enough urine prior tothe procedure and she understood the risks/benefits of getting the procedure with radiation if by the small chance she may be . She wished to proceed ahead with the procedure. Operators: 1.Dr. Sorin Veronica, Attending Physician 2.Dr. Chris MCDONNELL, Resident Physician Anesthesia: 1.Local anesthesia - 10 mL of 1% lidocaine Procedure: 1.Limited ultrasound evaluation of the right shoulder. 2.Ultrasound-guided placement of an 10French pigtail drainage catheter, Dimasleonard Delcid, in the right intramuscular shoulder abscess. Procedure in detail: The procedure, risks, and possible complicationswere explained to the patient in detail, and informed consent was obtained.The patient was placed in a supine position on the procedure table and a limited ultrasound evaluation of the right shoulder was performed, demonstrating multiple foci of gas and well circumscribed mixed echogenicity fluid collection within the muscular wall of the right shoulder. A percutaneous entry site was marked on the skin. The markedsite and skin around the region of interest was prepped and draped in sterile fashion. A pre-procedure timeout was performed. Local anesthesia was provided with 1% Lidocaine. A 5 Japanese coaxialneedle system was advanced in stages under real time ultrasound guidance. Upon aspiration, the outer-sheath was advanced within the abscess. An attempt was made for aspiration with a 5 Japanese catheter without success.Shortly after, a 0.035 wire was advanced through the sheath and following aseries of exchanges, an 10 Japanese pigtail drainage catheter was advanced within the collection. The initial aspirate was purulent and thick, and approximately 15 mL of fluid were drained during the procedure. An appropriate amount of aspirate was sent for necessary laboratory workup. The catheter was connected to suction drainage and secured using 2-0 Prolene suture. Post-drainage limited ultrasound evaluation showed the catheter in satisfactory position. The patient tolerated the procedure well and [facility]. There were no immediate complicationsassociated with the procedure. Impression: Successful ultrasound-guided placement of a 10 Frenchpigtail drainage catheter in right intramuscular abscess, as described above.The aspirate was viscous and purulent, and approximately 15 mL of fluid were drained during the procedure. Julio, Dr. Sorin Veronica, was present and performed/supervised the entire procedure. Sorin Kim have personally reviewed and interpreted this examination/study. > Interpreting Provider: Sorin Veronica on 08/31/2024 9:09 AM Briana M Larson PA-C CT ORDERABLES * CULTURE FLUID+GRAM STAIN (08/30/2024 3:13 PM CDT) Culture No growth CHARLES 09/04/2024 12:22 PM CDT [facility] Gram Stain Light Polymorphonuclear cells 09/04/2024 12:22 PM CDT [facility] Gram Stain No organisms seen 024 12:22 PM CDT [facility] Other SYNOVIAL FLUID / Unknown Collection / Unknown 08/30/2024 3:13 PM CDT 08/30/2024 3:37 PM CDT Penny Morris MD LAB - MICROBIOLOGY O DARRELL [facility] [address] [place] [address], [facility] [phone] * CULTURE ANAEROBE (08/30/2024 3:13 PM CDT) Culture No anaerobic organisms isolated CHARLES 09/05/2024 3:01 PM 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 [facility] Microbiology BODY FLUID SPECIMEN / Unknown Collection / Unknown 08/30/2024 3:13 PM CDT 08/30/2024 3:37 PM CDT Noe Rabago MD LAB - MICROBIOLOGY O DARRELL Performing Organization Address City/[facility]/ZIP Co de Phone Number [facility] [address] [place] [address], [facility] [phone] * HCG URINE QUAL POCT NOTIFICATION (08/30/2024 1:58 PM CDT) Comment Notification Label Only - See Separate Report 08/30/2024 3:00 PM CDT [facility] Urine URINE / Unknown 08/30/2024 1 :58 PM CDT 08/30/2024 1:58 PM CDT Sorin Veronica MD LAB - URINAL YSIS ORDERABLES [facility] [address] [address] [phone] * MRI Shoulder Right Wwo Cont (08/29/2024 11:09 AM CDT) Anatomical Region Laterality Modality Upper Extremity Magnetic Resonan ce 08/30/2024 7:36 AM CDT Impressions 08/30/2024 9:01 AM CDT IMPRESSION: 1.Extensive bone marrow edema in the humeral head with erosions, a glenohumeral effusion, and synovitis. These findings are compatible with septic arthritis and osteomyelitis. 2.Increased fluid in the subacromial-subdeltoid bursa with associated enhancement compatible with bursitis. 3.A 7.6 x 4.0 x 5.7 fluid collection containing gas in the anterior soft tissues compatible with abscess. 4.Extensive soft tissue edema and enhancement compatible with cellulitis and myositis. > Dictated by Kranthi Alvarez MD, (vice president global digital marketing). I, Xander De Guzman MD have personally reviewed and interpreted this examination/study. > Interpreting Provider: Xander De Guzman MD on 08/30/2024 9:01 AM Narrative 08/30/2024 9:01 AM CDT PROCEDURE: ??MRI SHOULDER RIGHT WWO CONT, DATE/TIME OF EXAM: ??08/29/2024 11:11 AM, LOCATION ??[facility] INDICATION: M86.9: Osteomyelitis of right shoulder, unspecified type (HCC) ADDITIONAL CLINICAL INFORMATION: Ordering Provider Reason For Exam: ??eval right shoulder osteomyelitis Technologist Note: Additional: COMPARISON: Right shoulder x-rays dated 08/26/2024. Outside CT chest dated 08/25/2024. TECHNIQUE: MRI of the right shoulder shoulder was performed using multiple pulse sequences in multiple planes prior to and following the uneventful administration of 20 mL intravenous Gadoterate ??contrast. FINDINGS: There is a glenohumeral effusion. There is extensive synovial thickening and increased synovial enhancement compatible with synovitis. There are protrusions of fluid anteromedially into the subcoracoid region, and posterosuperomedially into the spinal glenoid notch. There are large erosions in the humeral head with underlying bone marrow signal abnormality compatible with osteomyelitis. There is increased fluid in the subacromial-subdeltoid bursa with surrounding enhancement compatible with bursitis (series 1004 image 12). There is a collection in the anterior soft tissues involving the deltoid and pectoralis muscles, measuring 7.6 x 4.0 x 5.7 cm (series 13 image 31 and series 1004 image 13). This is predominantly T2 hyperintense centrally compatible with fluid, but it contains multiple foci of hypointense material compatible with gas. There is peripheral enhancement, compatible with abscess. This appears to communicate with the anterior-superior aspect of the glenohumeral joint through the rotator interval (series 1004 image 9-10). There is an extension extending anteriorly toward the skin (series 1004 image 21-24). There is extensive regional soft tissue edema. There is muscle enhancement compatible with myositis. There is subcutaneous enhancement anteriorly. There are areas of bone marrow edema and enhancement in the scapula including the acromion process and coracoid process, which could be due to osteomyelitis or reactive. There are enlarged axillary lymph nodes measuring up to 1.1 cm in short axis. There is increased signal intensity within the rotator cuff compatible with tendinitis. Procedure Note Xander De Guzman MD - 08/30/2024 PROCEDURE: MRI SHOULDER RIGHT WWO CONT, DATE/TIME OF EXAM: 08/29/2024 11:11 AM, LOCATION [facility] INDICATION: M86.9: Osteomyelitis of right shoulder, unspecified type (HCC) ADDITIONAL CLINICAL INFORMATION: Ordering Provider Reason For Exam: eval right shoulder osteomyelitis Technologist Note: Additional: COMPARISON: Right shoulder x-rays dated 08/26/2024. Outside CT chest dated1. TECHNIQUE: MRI of the right shoulder shoulder was performed usingmultiple pulse sequences in multiple planes prior to and following the uneventful administration of 20 mL intravenous Gadoterate contrast. FINDINGS: There is a glenohumeral effusion. There is extensive synovial thickening and increased synovial enhancement compatible with synovitis. There are protrusions of fluid anteromedially into the subcoracoid region, and posterosuperomedially into the spinal glenoid notch. There are large erosions in the humeral head with underlying bone marrow signalabnormality compatible with osteomyelitis. There is increased fluid in the subacromial-subdeltoid bursa with surrounding enhancement compatible with bursitis (series 1004 image 12). There is a collection in the anterior soft tissues involving the deltoid and pectoralis muscles, measuring 7.6 x 4.0 x 5.7 cm (series 13 image 31 and series 1004 image 13). This is predominantly T2 hyperintensecentrally compatible with fluid, but it contains multiple foci of hypointense material compatible with gas. There is peripheral enhancement,compatible with abscess. This appears to communicate with the anterior-superioraspect of the glenohumeral joint through the rotator interval (series 1004image 9-10). There is an extension extending anteriorly toward the skin(series 1004 image 21-24). There is extensive regional soft tissue edema. There is muscleenhancement compatible with myositis. There is subcutaneous enhancement anteriorly. There are areas of bone marrow edema and enhancement in the scapula including the acromion process and coracoid process, which could be dueto osteomyelitis or reactive. There are enlarged axillary lymph nodes measuring up to 1.1 cm in short axis. There is increased signal intensity within the rotator cuff compatiblewith tendinitis. IMPRESSION: 1.Extensive bone marrow edema in the humeral head with erosions, a glenohumeral effusion, and synovitis. These findings are compatible with septic arthritis and osteomyelitis. 2.Increased fluid in the subacromial-subdeltoid bursa with associated enhancement compatible with bursitis. 3.A 7.6 x 4.0 x 5.7 fluid collection containing gas in the anterior soft tissues compatible with abscess. 4.Extensive soft tissue edema and enhancement compatible with cellulitis and myositis. > Dictated by Kranthi Alvarez MD, (vice president global digital marketing). I, Xander De Guzman MD have personally reviewed and interpreted this examination/study. > Interpreting Provider: Xander De Guzman MD on 08/30/2024 9:01 AM Harpreet Katz DO [facility] ORDERABLES * (ABNORMAL) HEMOGLOBIN A1C (08/28/2024 8:29 PM CDT) Hemoglobin A1c 7.4(H) <=5.6 % 08/29/2024 8:36 AM CDT [facility] Estimated Average Glucose 166 mg/dL 08/29/2024 8:36 AM T [facility] Comment: HbA1c Interpretation: Normal : < 5.7% Pre-diabetes: 5.7-6.4% Diabetes: Equal to or greater than 6.5% Test results diagnostic of diabetes should be repeated for confirmation. Treatment target values recommended by ADA and other clinical organizations should be used to evaluate metabolic control in patients. Reference: [place] [employer], Standards of Care in Diabetes -2020 In patients 70 years and older consider HbA1c target range of 7.0-7.5% (Reference: Anthony Dillard et al. JAMDA. 2012) The [employer] assay for the measurement of HbA1c is a National Glycohemoglobin Standardization Program (NGSP) certified method. Blood BLOOD SPECIMEN / Unknown Lab Venipuncture / Unknown 08/28/2024 8:29 PM CDT 08/28/2024 9:24 PM CDT Noe Rabago MD LAB - CHEMISTRY DIVINA OLVERA [facility] Organization Address City/State/ZIP Co de Phone Number [facility] [address] [place] [address], [facility] [phone] * MRI Cervical Spine Wwo Cont (08/27/2024 2:53 AM CDT) Anatomical Region Laterality Modality Spine Magnetic Resonan ce 08/27/2024 9:04 AM CDT Impressions 08/27/2024 12:10 PM CDT IMPRESSION: 1. No areas of abnormal contrast enhancement noted throughout the spine. Multilevel mild to moderate facet arthropathy in the lower lumbar spine otherwise no significant degenerative changes noted including cervical and thoracic spine. 2. No abnormal cord signal within the limits of the study. 3. Partially visualized prominent lymph nodes in the posterior mediastinum/left upper para-aortic region also seen on prior study. Partially visualized enhancement in the right shoulder with enlarged right axillary lymph nodes could be secondary to known septic arthritis. This study was dictated by vice president global digital marketing Anam Pearson MD and reviewed and edited by the attending. IMery MD have personally reviewed and interpreted this examination/study. > Interpreting Provider: Mery Esqueda MD on 08/27/2024 12:10 PM Narrative 08/27/2024 12:10 PM CDT MRI THORACIC SPINE WWO CONT, MRI CERVICAL SPINE WWO CONT, MRI LUMBAR SPINE WWO CONTRAST DATE: 08/27/2024 2:51 AM EXAMINATION: MRI of the cervical, thoracic, and lumbar spine without and with contrast HISTORY: M79.89: Swelling of right upper extremity TECHNIQUE: MRI of the cervical, thoracic, and lumbar spine was performed prior to and following the uneventful administration of [10 mL' intravenous gadolinium contrast according to standard protocol. COMPARISON: MRI cervical spine 07/30/2024. Outside CT chest from 08/25/2024 FINDINGS: This is limited by presence of motion artifacts. Cervical spine: The alignment is normal. Vertebral bodies are normal in height without evidence of compression fractures. Diffusely decreased marrow signal on T1 images could be secondary to known chronic kidney disease The craniocervical junction appears normal except for mild degenerative changes. Visualized portions of the posterior fossa appear normal. The spinal cord appears normal. No abnormal enhancement is identified. There is mild disc height loss at multiple levels. Partially visualized STIR hyperintense nodular foci in the posterior mediastinum corresponding to prominent lymph nodes as seen on prior outside CT chest. No acute soft tissue abnormality is identified. Normal flow voids are identified in the vertebral arteries. Dominant right vertebral artery. Partially visualized left-sided central venous catheter. No significant disc bulges or disc herniations noted. No central canal stenosis. No significant facet arthropathy. No uncovertebral hypertrophy or neural foramina stenosis noted. Thoracic spine: There is mild bending of thoracic spine to the right side. The alignment is otherwise normal. Vertebral bodies are normal in height without evidence of compression fractures. Marrow signal intensity is normal. The spinal cord appears normal. No abnormal enhancement is identified. The intervertebral discs appear normal. No central canal stenosis is seen. The facets appear normal. No neural foraminal stenosis is seen. There is enlargement of the partially imaged heart with left ventricular hypertrophy. Mild bilateral basilar atelectasis is noted. Partially visualized by 2.5 cm enhancing lesion with T2 hyperintensity in the spleen could be secondary to hemangioma seen on prior CT chest abdomen and pelvis 07/27/2024. Partially visualized enlarged mediastinal lymph nodes predominantly in the para-aortic region/posterior mediastinum and also in the prevascular region. Partially visualized enhancement in right shoulder/subscapularis could be secondary to known septic arthritis. Enlarged right axillary lymph nodes. Lumbar spine: Evaluation of the postcontrast images is limited by motion artifact. There are 6 nonrib-bearing lumbar vertebral bodies. There is mild levocurvature of the lower lumbar spine.. Vertebral bodies are normal in height without evidence of compression fractures. Diffusely decreased T1 signal throughout the marrow. Otherwise no areas of abnormal marrow signal. The conus medullaris terminates at the level of upper L2 vertebra and the distal spinal cord signal intensity is normal. No abnormal enhancement is identified, within the limits of the study. The intervertebral discs are normal in height. No soft tissue abnormality is identified, within the limits of the study. Mild disc bulges L4-L5 and L5 -6. No evidence of herniations or central canal stenosis. There is tapering of the thecal sac distally with with the epidural lipomatosis most prominent at the level of L6 S1. No neural foraminal stenosis noted. Multilevel mild to moderate facet arthropathy most prominent at the level of right L5- L6. No evidence of discitis osteomyelitis throughout the spine. Procedure Note Mery Esqueda MD - 08/27/2024 MRI THORACIC SPINE WWO CONT, MRI CERVICAL SPINE WWO CONT, MRI LUMBARSPINE WWO CONTRAST DATE: 08/27/2024 2:51 AM EXAMINATION: MRI of the cervical, thoracic, and lumbar spine without and with contrast HISTORY: M79.89: Swelling of right upper extremity TECHNIQUE: MRI of the cervical, thoracic, and lumbar spine was performed prior to and following the uneventful administration of [10 mL'intravenous gadolinium contrast according to standard protocol. COMPARISON: MRI cervical spine 07/30/2024. Outside CT chest from08/25/2024 FINDINGS: This is limited by presence of motion artifacts. Cervical spine: The alignment is normal. Vertebral bodies are normal in height without evidence of compression fractures. Diffusely decreased marrow signal onT1 images could be secondary to known chronic kidney disease The craniocervical junction appears normal except for mild degenerative changes. Visualized portions of the posterior fossa appear normal. The spinal cord appears normal. No abnormal enhancement is identified. Thereis mild disc height loss at multiple levels. Partially visualized STIR hyperintense nodular foci in the posterior mediastinum corresponding to prominent lymph nodes as seen on prior outside CT chest. No acute soft tissue abnormality is identified. Normal flow voids are identified inthe vertebral arteries. Dominant right vertebral artery. Partiallyvisualized left-sided central venous catheter. No significant disc bulges or disc herniations noted. No central canal stenosis. No significant facet arthropathy. No uncovertebral hypertrophyor neural foramina stenosis noted. Thoracic spine: There is mild bending of thoracic spine to the right side. The alignmentis otherwise normal. Vertebral bodies are normal in height without evidenceof compression fractures. Marrow signal intensity is normal. The spinalcord appears normal. No abnormal enhancement is identified. The intervertebral discs appear normal. No central canal stenosis isseen. The facets appear normal. No neural foraminal stenosis is seen. There is enlargement of the partially imaged heart with left ventricular hypertrophy. Mild bilateral basilar atelectasis is noted. Partially visualized by 2.5 cm enhancing lesion with T2 hyperintensity in thespleen could be secondary to hemangioma seen on prior CT chest abdomen andpelvis 07/27/2024. Partially visualized enlarged mediastinal lymph nodes predominantly in the para-aortic region/posterior mediastinum and alsoin the prevascular region. Partially visualized enhancement in right shoulder/subscapularis could be secondary to known septic arthritis. Enlarged right axillary lymph nodes. Lumbar spine: Evaluation of the postcontrast images is limited by motion artifact. There are 6 nonrib-bearing lumbar vertebral bodies. There is mild levocurvature of the lower lumbar spine.. Vertebral bodies are normal in height without evidence of compression fractures.Diffusely decreased T1 signal throughout the marrow. Otherwise no areas ofabnormal marrow signal. The conus medullaris terminates at the level of upper L2 vertebra and the distal spinal cord signal intensity is normal. Noabnormal enhancement is identified, within the limits of the study. The intervertebral discs are normal in height. No soft tissueabnormality is identified, within the limits of the study. Mild disc bulges L4-L5and L5 -6. No evidence of herniations or central canal stenosis. There is tapering of the thecal sac distally with with the epidural lipomatosismost prominent at the level of L6 S1. No neural foraminal stenosis noted. Multilevel mild to moderate facet arthropathy most prominent at thelevel of right L5- L6. No evidence of discitis osteomyelitis throughout the spine. IMPRESSION: 1. No areas of abnormal contrast enhancement noted throughout the spine. Multilevel mild to moderate facet arthropathy in the lower lumbar spine otherwise no significant degenerative changes noted including cervicaland thoracic spine. 2. No abnormal cord signal within the limits of the study. 3. Partially visualized prominent lymph nodes in the posterior mediastinum/left upper para-aortic region also seen on prior study. Partially visualized enhancement in the right shoulder with enlargedright axillary lymph nodes could be secondary to known septic arthritis. This study was dictated by vice president global digital marketing Anam Pearson MD and reviewed and edited by the attending. Mery Kim MD have personally reviewed and interpreted this examination/study. > Interpreting Provider: Mery Esqueda MD on 08/27/2024 12:10 PM Penny Morris MD MR ORDERABLES * MRI Lumbar Spine Wwo Contrast (08/27/2024 2:52 AM CDT) Anatomical Region Laterality Modality Spine Magnetic Resonan ce 08/27/2024 9:04 AM CDT Impressions 08/27/2024 12:10 PM CDT IMPRESSION: 1. No areas of abnormal contrast enhancement noted throughout the spine. Multilevel mild to moderate facet arthropathy in the lower lumbar spine otherwise no significant degenerative changes noted including cervical and thoracic spine. 2. No abnormal cord signal within the limits of the study. 3. Partially visualized prominent lymph nodes in the posterior mediastinum/left upper para-aortic region also seen on prior study. Partially visualized enhancement in the right shoulder with enlarged right axillary lymph nodes could be secondary to known septic arthritis. This study was dictated by vice president global digital marketing Anam Pearson MD and reviewed and edited by the attending. Mrey Kim MD have personally reviewed and interpreted this examination/study. > Interpreting Provider: Mery Esqueda MD on 08/27/2024 12:10 PM Narrative 08/27/2024 12:10 PM CDT MRI THORACIC SPINE WWO CONT, MRI CERVICAL SPINE WWO CONT, MRI LUMBAR SPINE WWO CONTRAST DATE: 08/27/2024 2:51 AM EXAMINATION: MRI of the cervical, thoracic, and lumbar spine without and with contrast HISTORY: M79.89: Swelling of right upper extremity TECHNIQUE: MRI of the cervical, thoracic, and lumbar spine was performed prior to and following the uneventful administration of [10 mL' intravenous gadolinium contrast according to standard protocol. COMPARISON: MRI cervical spine 07/30/2024. Outside CT chest from 08/25/2024 FINDINGS: This is limited by presence of motion artifacts. Cervical spine: The alignment is normal. Vertebral bodies are normal in height without evidence of compression fractures. Diffusely decreased marrow signal on T1 images could be secondary to known chronic kidney disease The craniocervical junction appears normal except for mild degenerative changes. Visualized portions of the posterior fossa appear normal. The spinal cord appears normal. No abnormal enhancement is identified. There is mild disc height loss at multiple levels. Partially visualized STIR hyperintense nodular foci in the posterior mediastinum corresponding to prominent lymph nodes as seen on prior outside CT chest. No acute soft tissue abnormality is identified. Normal flow voids are identified in the vertebral arteries. Dominant right vertebral artery. Partially visualized left-sided central venous catheter. No significant disc bulges or disc herniations noted. No central canal stenosis. No significant facet arthropathy. No uncovertebral hypertrophy or neural foramina stenosis noted. Thoracic spine: There is mild bending of thoracic spine to the right side. The alignment is otherwise normal. Vertebral bodies are normal in height without evidence of compression fractures. Marrow signal intensity is normal. The spinal cord appears normal. No abnormal enhancement is identified. The intervertebral discs appear normal. No central canal stenosis is seen. The facets appear normal. No neural foraminal stenosis is seen. There is enlargement of the partially imaged heart with left ventricular hypertrophy. Mild bilateral basilar atelectasis is noted. Partially visualized by 2.5 cm enhancing lesion with T2 hyperintensity in the spleen could be secondary to hemangioma seen on prior CT chest abdomen and pelvis 07/27/2024. Partially visualized enlarged mediastinal lymph nodes predominantly in the para-aortic region/posterior mediastinum and also in the prevascular region. Partially visualized enhancement in right shoulder/subscapularis could be secondary to known septic arthritis. Enlarged right axillary lymph nodes. Lumbar spine: Evaluation of the postcontrast images is limited by motion artifact. There are 6 nonrib-bearing lumbar vertebral bodies. There is mild levocurvature of the lower lumbar spine.. Vertebral bodies are normal in height without evidence of compression fractures. Diffusely decreased T1 signal throughout the marrow. Otherwise no areas of abnormal marrow signal. The conus medullaris terminates at the level of upper L2 vertebra and the distal spinal cord signal intensity is normal. No abnormal enhancement is identified, within the limits of the study. The intervertebral discs are normal in height. No soft tissue abnormality is identified, within the limits of the study. Mild disc bulges L4-L5 and L5 -6. No evidence of herniations or central canal stenosis. There is tapering of the thecal sac distally with with the epidural lipomatosis most prominent at the level of L6 S1. No neural foraminal stenosis noted. Multilevel mild to moderate facet arthropathy most prominent at the level of right L5- L6. No evidence of discitis osteomyelitis throughout the spine. Procedure Note Mery Esqueda MD - 08/27/2024 MRI THORACIC SPINE WWO CONT, MRI CERVICAL SPINE WWO CONT, MRI LUMBARSPINE WWO CONTRAST DATE: 08/27/2024 2:51 AM EXAMINATION: MRI of the cervical, thoracic, and lumbar spine without and with contrast HISTORY: M79.89: Swelling of right upper extremity TECHNIQUE: MRI of the cervical, thoracic, and lumbar spine was performed prior to and following the uneventful administration of [10 mL'intravenous gadolinium contrast according to standard protocol. COMPARISON: MRI cervical spine 07/30/2024. Outside CT chest from08/25/2024 FINDINGS: This is limited by presence of motion artifacts. Cervical spine: The alignment is normal. Vertebral bodies are normal in height without evidence of compression fractures. Diffusely decreased marrow signal onT1 images could be secondary to known chronic kidney disease The craniocervical junction appears normal except for mild degenerative changes. Visualized portions of the posterior fossa appear normal. The spinal cord appears normal. No abnormal enhancement is identified. Thereis mild disc height loss at multiple levels. Partially visualized STIR hyperintense nodular foci in the posterior mediastinum corresponding to prominent lymph nodes as seen on prior outside CT chest. No acute soft tissue abnormality is identified. Normal flow voids are identified inthe vertebral arteries. Dominant right vertebral artery. Partiallyvisualized left-sided central venous catheter. No significant disc bulges or disc herniations noted. No central canal stenosis. No significant facet arthropathy. No uncovertebral hypertrophyor neural foramina stenosis noted. Thoracic spine: There is mild bending of thoracic spine to the right side. The alignmentis otherwise normal. Vertebral bodies are normal in height without evidenceof compression fractures. Marrow signal intensity is normal. The spinalcord appears normal. No abnormal enhancement is identified. The intervertebral discs appear normal. No central canal stenosis isseen. The facets appear normal. No neural foraminal stenosis is seen. There is enlargement of the partially imaged heart with left ventricular hypertrophy. Mild bilateral basilar atelectasis is noted. Partially visualized by 2.5 cm enhancing lesion with T2 hyperintensity in thespleen could be secondary to hemangioma seen on prior CT chest abdomen andpelvis 07/27/2024. Partially visualized enlarged mediastinal lymph nodes predominantly in the para-aortic region/posterior mediastinum and alsoin the prevascular region. Partially visualized enhancement in right shoulder/subscapularis could be secondary to known septic arthritis. Enlarged right axillary lymph nodes. Lumbar spine: Evaluation of the postcontrast images is limited by motion artifact. There are 6 nonrib-bearing lumbar vertebral bodies. There is mild levocurvature of the lower lumbar spine.. Vertebral bodies are normal in height without evidence of compression fractures.Diffusely decreased T1 signal throughout the marrow. Otherwise no areas ofabnormal marrow signal. The conus medullaris terminates at the level of upper L2 vertebra and the distal spinal cord signal intensity is normal. Noabnormal enhancement is identified, within the limits of the study. The intervertebral discs are normal in height. No soft tissueabnormality is identified, within the limits of the study. Mild disc bulges L4-L5and L5 -6. No evidence of herniations or central canal stenosis. There is tapering of the thecal sac distally with with the epidural lipomatosismost prominent at the level of L6 S1. No neural foraminal stenosis noted. Multilevel mild to moderate facet arthropathy most prominent at thelevel of right L5- L6. No evidence of discitis osteomyelitis throughout the spine. IMPRESSION: 1. No areas of abnormal contrast enhancement noted throughout the spine. Multilevel mild to moderate facet arthropathy in the lower lumbar spine otherwise no significant degenerative changes noted including cervicaland thoracic spine. 2. No abnormal cord signal within the limits of the study. 3. Partially visualized prominent lymph nodes in the posterior mediastinum/left upper para-aortic region also seen on prior study. Partially visualized enhancement in the right shoulder with enlargedright axillary lymph nodes could be secondary to known septic arthritis. This study was dictated by vice president global digital marketing Anam Pearson MD and reviewed and edited by the attending. I, Mery Esqueda MD have personally reviewed and interpreted this examination/study. > Interpreting Provider: Mery Esqueda MD on 08/27/2024 12:10 PM Penny Morris MD MR ORDERABLES * MRI Thoracic Spine Wwo Cont (08/27/2024 2:49 AM CDT) Anatomical Region Laterality Modality Spine Magnetic Resonan ce 08/27/2024 9:04 AM CDT Impressions 08/27/2024 12:10 PM CDT IMPRESSION: 1. No areas of abnormal contrast enhancement noted throughout the spine. Multilevel mild to moderate facet arthropathy in the lower lumbar spine otherwise no significant degenerative changes noted including cervical and thoracic spine. 2. No abnormal cord signal within the limits of the study. 3. Partially visualized prominent lymph nodes in the posterior mediastinum/left upper para-aortic region also seen on prior study. Partially visualized enhancement in the right shoulder with enlarged right axillary lymph nodes could be secondary to known septic arthritis. This study was dictated by vice president global digital marketing Anam Pearson MD and reviewed and edited by the attending. I, Mery Esqueda MD have personally reviewed and interpreted this examination/study. > Interpreting Provider: Mery Esqueda MD on 08/27/2024 12:10 PM Narrative 08/27/2024 12:10 PM CDT MRI THORACIC SPINE WWO CONT, MRI CERVICAL SPINE WWO CONT, MRI LUMBAR SPINE WWO CONTRAST DATE: 08/27/2024 2:51 AM EXAMINATION: MRI of the cervical, thoracic, and lumbar spine without and with contrast HISTORY: M79.89: Swelling of right upper extremity TECHNIQUE: MRI of the cervical, thoracic, and lumbar spine was performed prior to and following the uneventful administration of [10 mL' intravenous gadolinium contrast according to standard protocol. COMPARISON: MRI cervical spine 07/30/2024. Outside CT chest from 08/25/2024 FINDINGS: This is limited by presence of motion artifacts. Cervical spine: The alignment is normal. Vertebral bodies are normal in height without evidence of compression fractures. Diffusely decreased marrow signal on T1 images could be secondary to known chronic kidney disease The craniocervical junction appears normal except for mild degenerative changes. Visualized portions of the posterior fossa appear normal. The spinal cord appears normal. No abnormal enhancement is identified. There is mild disc height loss at multiple levels. Partially visualized STIR hyperintense nodular foci in the posterior mediastinum corresponding to prominent lymph nodes as seen on prior outside CT chest. No acute soft tissue abnormality is identified. Normal flow voids are identified in the vertebral arteries. Dominant right vertebral artery. Partially visualized left-sided central venous catheter. No significant disc bulges or disc herniations noted. No central canal stenosis. No significant facet arthropathy. No uncovertebral hypertrophy or neural foramina stenosis noted. Thoracic spine: There is mild bending of thoracic spine to the right side. The alignment is otherwise normal. Vertebral bodies are normal in height without evidence of compression fractures. Marrow signal intensity is normal. The spinal cord appears normal. No abnormal enhancement is identified. The intervertebral discs appear normal. No central canal stenosis is seen. The facets appear normal. No neural foraminal stenosis is seen. There is enlargement of the partially imaged heart with left ventricular hypertrophy. Mild bilateral basilar atelectasis is noted. Partially visualized by 2.5 cm enhancing lesion with T2 hyperintensity in the spleen could be secondary to hemangioma seen on prior CT chest abdomen and pelvis 07/27/2024. Partially visualized enlarged mediastinal lymph nodes predominantly in the para-aortic region/posterior mediastinum and also in the prevascular region. Partially visualized enhancement in right shoulder/subscapularis could be secondary to known septic arthritis. Enlarged right axillary lymph nodes. Lumbar spine: Evaluation of the postcontrast images is limited by motion artifact. There are 6 nonrib-bearing lumbar vertebral bodies. There is mild levocurvature of the lower lumbar spine.. Vertebral bodies are normal in height without evidence of compression fractures. Diffusely decreased T1 signal throughout the marrow. Otherwise no areas of abnormal marrow signal. The conus medullaris terminates at the level of upper L2 vertebra and the distal spinal cord signal intensity is normal. No abnormal enhancement is identified, within the limits of the study. The intervertebral discs are normal in height. No soft tissue abnormality is identified, within the limits of the study. Mild disc bulges L4-L5 and L5 -6. No evidence of herniations or central canal stenosis. There is tapering of the thecal sac distally with with the epidural lipomatosis most prominent at the level of L6 S1. No neural foraminal stenosis noted. Multilevel mild to moderate facet arthropathy most prominent at the level of right L5- L6. No evidence of discitis osteomyelitis throughout the spine. Procedure Note Mery Esqueda MD - 08/27/2024 MRI THORACIC SPINE WWO CONT, MRI CERVICAL SPINE WWO CONT, MRI LUMBARSPINE WWO CONTRAST DATE: 08/27/2024 2:51 AM EXAMINATION: MRI of the cervical, thoracic, and lumbar spine without and with contrast HISTORY: M79.89: Swelling of right upper extremity TECHNIQUE: MRI of the cervical, thoracic, and lumbar spine was performed prior to and following the uneventful administration of [10 mL'intravenous gadolinium contrast according to standard protocol. COMPARISON: MRI cervical spine 07/30/2024. Outside CT chest from08/25/2024 FINDINGS: This is limited by presence of motion artifacts. Cervical spine: The alignment is normal. Vertebral bodies are normal in height without evidence of compression fractures. Diffusely decreased marrow signal onT1 images could be secondary to known chronic kidney disease The craniocervical junction appears normal except for mild degenerative changes. Visualized portions of the posterior fossa appear normal. The spinal cord appears normal. No abnormal enhancement is identified. Thereis mild disc height loss at multiple levels. Partially visualized STIR hyperintense nodular foci in the posterior mediastinum corresponding to prominent lymph nodes as seen on prior outside CT chest. No acute soft tissue abnormality is identified. Normal flow voids are identified inthe vertebral arteries. Dominant right vertebral artery. Partiallyvisualized left-sided central venous catheter. No significant disc bulges or disc herniations noted. No central canal stenosis. No significant facet arthropathy. No uncovertebral hypertrophyor neural foramina stenosis noted. Thoracic spine: There is mild bending of thoracic spine to the right side. The alignmentis otherwise normal. Vertebral bodies are normal in height without evidenceof compression fractures. Marrow signal intensity is normal. The spinalcord appears normal. No abnormal enhancement is identified. The intervertebral discs appear normal. No central canal stenosis isseen. The facets appear normal. No neural foraminal stenosis is seen. There is enlargement of the partially imaged heart with left ventricular hypertrophy. Mild bilateral basilar atelectasis is noted. Partially visualized by 2.5 cm enhancing lesion with T2 hyperintensity in thespleen could be secondary to hemangioma seen on prior CT chest abdomen andpelvis 07/27/2024. Partially visualized enlarged mediastinal lymph nodes predominantly in the para-aortic region/posterior mediastinum and alsoin the prevascular region. Partially visualized enhancement in right shoulder/subscapularis could be secondary to known septic arthritis. Enlarged right axillary lymph nodes. Lumbar spine: Evaluation of the postcontrast images is limited by motion artifact. There are 6 nonrib-bearing lumbar vertebral bodies. There is mild levocurvature of the lower lumbar spine.. Vertebral bodies are normal in height without evidence of compression fractures.Diffusely decreased T1 signal throughout the marrow. Otherwise no areas ofabnormal marrow signal. The conus medullaris terminates at the level of upper L2 vertebra and the distal spinal cord signal intensity is normal. Noabnormal enhancement is identified, within the limits of the study. The intervertebral discs are normal in height. No soft tissueabnormality is identified, within the limits of the study. Mild disc bulges L4-L5and L5 -6. No evidence of herniations or central canal stenosis. There is tapering of the thecal sac distally with with the epidural lipomatosismost prominent at the level of L6 S1. No neural foraminal stenosis noted. Multilevel mild to moderate facet arthropathy most prominent at thelevel of right L5- L6. No evidence of discitis osteomyelitis throughout the spine. IMPRESSION: 1. No areas of abnormal contrast enhancement noted throughout the spine. Multilevel mild to moderate facet arthropathy in the lower lumbar spine otherwise no significant degenerative changes noted including cervicaland thoracic spine. 2. No abnormal cord signal within the limits of the study. 3. Partially visualized prominent lymph nodes in the posterior mediastinum/left upper para-aortic region also seen on prior study. Partially visualized enhancement in the right shoulder with enlargedright axillary lymph nodes could be secondary to known septic arthritis. This study was dictated by vice president global digital marketing Anam Pearson MD and reviewed and edited by the attending. I, Mery Esqueda MD have personally reviewed and interpreted this examination/study. > Interpreting Provider: Mery Esqueda MD on 08/27/2024 12:10 PM Penny Morris MD MR ORDERABLES * CRYSTAL INDENTIFICATION SYNOVIAL FLUID (08/26/2024 9:15 PM CDT) Crystal Exam Fluid To be performed by Pathology. See Path Review. 08/26/2024 11:48 PM CDT [facility] Fluid SYNOVIAL FLUID / Unknown 08/26/2024 9:15 PM CDT 08/26/2024 10:31 PM CDT Penny Morris MD LAB - BODY FLUID ORD ERABLES [facility] [address] [place] [address], [facility] [phone] * PATHOLOGY SMEAR BODY FLUID (08/26/2024 9:15 PM CDT) Only the most recent of2 resultswithin the time period is included. Path Review Fluid Confirmed 08/30/2024 12:36 PM CDT [facility] Fluid SYNOVIAL FLUID / Unknown 08/26/2024 9:15 PM CDT 08/26/2024 10:31 PM CDT Narrative [facility] - 08/30/2024 12:36 PM CDT Synovial fluid cytospin (1:10): - ??Red blood cells present, consistent with peripheral blood contamination - ??No crystals seen under polarized light-microscopy Penny Morris MD LAB - PATHOLOGY/CYTO LOGY ORDERABLES [facility] [address] [place] [phone], [place] [phone] * DIFFERENTIAL MANUAL FLUID (08/26/2024 9:15 PM CDT) Fluid Source Synovial 08/26/2024 10:35 PM CDT [facility] Body Fluid Total Cell Count 100 x10E6/L 08/26/2024 10:35 PM CDT [facility] Neutrophils Fluid Percent 83 % 08/26/2024 10:35 PM CDT [facility] Lymphocytes Fluid Percent 5 % 08/26/2024 10:35 PM CDT [facility] Eosinophils Fluid Percent 12 % 08/26/2024 10:35 PM CDT [facility] Fluid SYNOVIAL FLUID / Unknown Collection / Unknown 08/26/2024 9:15 PM CDT 08/26/2024 9:16 PM CDT Narrative [facility] - 08/26/2024 10:35 PM CDT No reference ranges established for body fluid differential cell counts. ??The test results must be integrated into the clinical context for interpretation. Penny Morris MD LAB - BODY FLUID ORD ERABLES Performing Organization Address [facility] [place]/[facility] Co de Phone Number [facility] [address] [place] [address], [facility] [phone] * (ABNORMAL) CELL COUNT W DIFFERENTIAL FLUID (08/26/2024 9:15 PM CDT) Fluid Source Synovial 08/26/2024 10:35 PM CDT [facility] Fluid Appearance BLOODY 08/26/2024 10:35 PM CDT [facility] Fluid Color RED 08/26/2024 10:35 PM CDT [facility] Total Nucleated Cells Fluid 3,700(H) <=200 x10E6/L 08/26/2024 10:35 PM CDT [facility] Comment:Clots present. Count may be inaccurate. RBC Count Fluid 1,117,000 Reference Range Not Established x10E6/L 08/26/2024 10:35 PM CDT [facility] Fluid SYNOVIAL FLUID / Unknown Collection / Unknown 08/26/2024 9:15 PM CDT 08/26/2024 9:16 PM CDT Narrative [facility] - 08/26/2024 10:35 PM CDT No reference ranges established for body fluid cell counts. Any reference ranges provided are derived from published literature. The test results must be integrated into the clinical context for interpretation. Penny Morris MD LAB - BODY FLUID ORD ERABLES Performing Organization Address [facility] [place]/[facility]/ZIP Co de Phone Number [facility] [address] [place] [phone], [facility] [phone] * XR Shoulder Right 2Vw or More (08/26/2024 8:11 PM CDT) Anatomical Region Laterality Modality Upper Extremity Digital Radiogra phy 08/26/2024 8:45 PM CDT Narrative 08/27/2024 12:36 AM CDT PROCEDURE: ??XR SHOULDER RIGHT 2VW OR MORE, DATE/TIME OF EXAM: ??08/26/2024 8:12 PM, LOCATION ??[facility] INDICATION: M79.89: Swelling of right upper extremity ADDITIONAL CLINICAL INFORMATION: Ordering Provider Reason For Exam: Technologist Note: Additional: None. COMPARISON: None. FINDINGS/IMPRESSION: Deformity at the right humeral head/neck likely related to erosive changes of septic arthritis/osteomyelitis at the right shoulder seen on multiple previous exams. Deformity appears to have progressed since the previous x-ray on 07/26/2024. There is likely soft tissue gas, seen on the axillary view concerning for gas-forming infection. Otherwise, no acute fracture or dislocation is identified. Possible airspace disease within the bilateral lungs. Report dictated by Graeme Stern DO (vice president global digital marketing). Arthur Kim MD have personally reviewed and interpreted this examination/study. > Interpreting Provider: Artuhr Avery MD on 08/27/2024 12:36 AM Procedure Note Arthur Avery MD - 08/27/2024 PROCEDURE: XR SHOULDER RIGHT 2VW OR MORE, DATE/TIME OF EXAM:08/26/2024 8:12 PM, LOCATION [facility] INDICATION: M79.89: Swelling of right upper extremity ADDITIONAL CLINICAL INFORMATION: Ordering Provider Reason For Exam: Technologist Note: Additional: None. COMPARISON: None. FINDINGS/IMPRESSION: Deformity at the right humeral head/neck likely related to erosivechanges of septic arthritis/osteomyelitis at the right shoulder seen on multiple previous exams. Deformity appears to have progressed since the previous x-ray on 07/26/2024. There is likely soft tissue gas, seen on theaxillary view concerning for gas-forming infection. Otherwise, no acute fractureor dislocation is identified. Possible airspace disease within thebilateral lungs. Report dictated by Graeme Stern DO (vice president global digital marketing). Arthur Kim MD have personally reviewed and interpreted this examination/study. > Interpreting Provider: Arthur Avery MD on 08/27/2024 12:36 AM Penny Morris MD DIAGNOSTIC IMAGING O RDERABLES * SARS-COV-2 (COVID-19)+INFLU A+B PCR RAPID (08/25/2024 10:05 AM CDT) COVID-19 PCR Not detected Not detected 08/25/20 10:55 AM CDT [facility] Influenza A Rapid RASHAWN Not Detected Not Detected 08/25/2024 10:55 AM CDT [facility] Influenza B RASHAWN Rapid Not Detected Not Detected 08/25/2024 10:55 AM CDT [facility] Microbiology SPECIMEN FROM NASOPHARYNGEAL STRUCTURE / Unknown Collection / Unknown 08/25/2024 10:05 AM CDT 08/25/2024 10:18 AM CDT Narrative [facility] - 08/25/2024 10:55 AM CDT Influenza assay performed by [employer]. Results do not exclude the possibility of a mixed viral infection. NOTE: ??Detecting and identifying specific viral nucleic acids from individuals exhibiting signs and symptoms of respiratory infection aids in the diagnosis of respiratory infection, if used in conjunction with other clinical and laboratory findings. The results of this test should not be used as the sole basis for diagnosis, treatment, or patient management decisions. This nucleic acid amplification assay performance was validated by [facility]. This test has been authorized by the Food and Drug administration (FDA)under an Emergency??Use Authorization (EUA). This test has been validated in accordance with the FDA's guidance document Policy for Diagnostic Testing in Laboratories Certified to perform High Complexity Testing under CLIA prior to Emergency Use Authorization for Coronavirus Disease-2019 during the Public Health Emergency issued on January 01, 2020. FDA independent review of this validation is pending. This test is only authorized for the duration of time the declaration that circumstances exist justifying the authorization of emergency use of in vitro diagnostic tests for detection of SARS-CoV-2 virus and/or diagnosis of COVID-19 infection under section 564(b)(1) of the Act, 21 U.S.C 360bbb-3 (b)(1), unless the authorization is terminated or revoked sooner. Fact Sheets for this EUA assay are available upon request. Penny Morris MD LAB - MICROBIOLOGY O RDERABLES [facility] [address] [place] [address], [facility] [phone] * CULTURE BLOOD (08/25/2024 10:05 AM CDT) Only the most recent of2 resultswithin the time period is included. Pathologist [facility] Culture No growth day 5 CHARLES 08/30/2024 2:31 PM CDT [facility] MICROBIOLOGY Blood PERIPHERAL BLOOD / Unknown Venipuncture / Unknown 08/25/2024 10:05 AM CDT 08/25/2024 10:18 AM CDT Penny Morris MD LAB - MICROBIOLOGY O RDERABLES [facility] MICROBIOLOGY [address] [place] [address], [facility] [phone] * LIPASE BLOOD (08/25/2024 9:50 AM CDT) Pathologist [facility] Lipase 57 8 - 78 U/L 08/25/2024 10:58 AM CDT [facility] Blood BLOOD SPECIMEN / Unknown Venipuncture / Unknown 08/25/2024 9:50 AM CDT 08/25/2024 10:20 AM CDT Narrative [facility] - 08/25/2024 10:58 AM CDT Lipase results from the [employer] Alinity analyzer may not be comparable with other methodologies. Penny Morris MD LAB - CHEMISTRY DIVINA OLVERA Performing Organization Address City/[facility]/ZIP Co de Phone Number [facility] [address] [place] [phone], [facility] [phone] * HEPATITIS C AB SCREEN RFLX NAAT QUANT (05/31/2024 6:38 PM CDT) Pathologist [facility] Hepatitis C Antibody Non-react talia Non-reac tive 05/31/2024 7:33 PM CDT [facility] Comment:Hepatitis C Antibody screen indicates no serologic evidence of past or current infection with Hepatitis C Virus. Patients with unexplained liver disease who are immunocompromised or suspected of having acute Hepatitis C infection may benefit from Nucleic Acid Test (DENA) for Hepatitis C Viral RNA to confirm Hepatitis C status. Blood BLOOD SPECIMEN / Unknown Lab Venipuncture / Unknown 05/31/2024 6:38 PM CDT 05/31/2024 6:41 PM CDT Hunter Chin III, MD LAB - CHEMISTRY ORDERABLES [facility] [address] [place] [address], [place] [phone] * HIV-1 HIV-2 ANTIBODY + HIV P24 AG PANEL (02/24/2024 8:57 AM CDT) HIV Antigen/Antibod y 1 & 2 Non-reacti ve Non-react talia 02/24/2024 10:03 AM CDT [facility] Comment:No Laboratory eviden ce of HIV infection. 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 07/29/2024 Advance Directives * Full Code (Latest Code Status on File) Date Activated Date Inactivated Comments 08/26/2024 11:26 PM 09/01/2024 6:04 PM * Full Code Date Activated Date Inactivated Comments 07/25/2024 10:20 PM 08/09/2024 2:07 PM * Full Code Date Activated Date Inactivated Comments 05/23/2024 10:21 PM 06/03/2024 6:44 PM * Full Code Date Activated Date Inactivated Comments 02/22/2024 8:57 PM 03/02/2024 6:27 PM * Full Code Date Activated Date Inactivated Comments 05/18/2023 2:41 AM 05/23/2023 7:59 PM Care Teams Histology Tech Relationship Specialty Start Date End Date Cherise Patrick PA-C [address] [place] [id number] PCP - General 02/23/24
--- OUTSIDE RECORDS SUMMARY | 2024-11-17 02:57 | XMS_ITS | Clinical Summary ---
Author Organization [facility] Address [address] [place] [address] Care Team Providers Care Bi Technical Lead Name Role Phone Cherise Patrick PA-C Primary Care Provider Source Comments [facility],non-owned Affiliates and Associated Physician Practices is amultiple site organization consisting of ambulatory clinics and hospital sitesin [place], [place], [place] and [place]. This disclosure is being madepursuant to the Care Everywhere program and may not contain all information available regarding this patient. Last updated 18.[facility] Allergies No known active allergies Medications * [...] Reported on 08/27/2024 Blood Glucose Monitoring Suppl (ShopLocket Reflect) w/Device KITIndications:CA GAVIN ZAMAN WHEN DELIVERING [id number] Use 1 kit 4 [...] diabetes mellitus with diabetic polyneuro maryanne 04/23/2010 Encounters Date Type Department Care Team Description 10/11/2024 3:30 PM LOCK OPERATOR Office Visit [facility] - Infectious Disease [address] [place] [address] Kash Ha MD MRSA bacteremia (Primary Dx); 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HCC); ESRD (end stage renal disease) on dialysis (HCC); ESR raised; CRP elevated 10/11/2024 Travel 09/28/2024 Telephone [facility] - Infectious Disease [address] [place] [address] Gail Bueno, RN Appointment 09/28/2024 Travel 09/28/2024 Telephone [facility] - Infectious Disease [facility] [place] [address] Gail Bueno, RN Appointment 09/23/2024 Telephone [facility] TRANS[facility]ANT [address] [place] [address] Fiona Schneider, RN Kidney Transplant Evaluation 09/23/2024 Transitional Care [facility] CARE COORDINATION [address] [place] [address] Ewa Blake, JIMMIE Transitions Of Care 09/22/2024 Telephone [facility] - Infectious Disease [facility] [place] [address] Gail Bueno, RN Appointment 09/17/2024 Telephone [facility] - Infectious Disease [facility] [place] [address] Kash Ha MD 2024 Telephone [facility] - Infectious Disease [address] [place] [phone] Kash Ha MD Medication Clarification 09/07/2024 Telephone [facility] - Allergy [facility] [place] [phone] Nohemi Valenzuela PA-C Results 09/02/2024 Transitional Care [facility] CARE COORDINATION [address] [place] [phone] Ewa Blake, JIMMIE Transitions Of Care 09/01/2024 Telephone [facility] - Allergy [address] [place] [phone] Roxanna Roth PA-C Appointment 08/26/2024 4:27 PM CDT - 09/01/2024 4:54 PM CDT Hospital Encounter [address] [phone] Penny Morris MD Demars, MD Gregory Rojas Chad S, MD Albrecht, Ryan, DO Bhalla, Kishley, MD Masud, José Hawkins MD Surgery Orthopedics Discharge Disposition: Home Health Care [facility] 08/26/2024 Travel 08/25/2024 6:33 PM CDT - 08/25/2024 6:34 PM CDT Emergency [facility] EMERGENCY DEPARTMENT [address] [place] [phone] Discharge Disposition: Left Against Medical Advice/Discontinued Care 08/25/2024 Travel 08/24/2024 Orders Only [facility] - Infectious Disease [address] [place] [phone] Kash Ha MD Hypertension, unspecified type 08/23/2024 2:30 PM CDT Office Visit [facility] - Infectious Disease [address] [place] [phone] Kash Ha MD MRSA bacteremia (Primary Dx); 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HCC); Induration of skin; Hypertension, unspecified type; Chronic heel ulcer, right, with unspecified severity (HCC); Other chronic osteomyelitis of right humerus (HCC); ESRD (end stage renal disease) on dialysis (HCC); Acute deep vein thrombosis (DVT) of right upper extremity, unspecified vein (HCC) 08/23/2024 Travel 08/18/2024 Telephone [facility] - Allergy [address] [facility] [place] [phone] Nohemi Valenzuela PA-C LABS ONLY from Last 3 Months Immunizations Name Administration Dates Next Due DTP, HISTORIC VACCINE 05/08/1994, 993,02/16/1993,12/19 HEP B VACCINE, PED/ADOL 03/06/1994,07/27/1993, HIB VACCINE 01/04/1994,199 3,02/16/1993,12/19 Human Papilloma Virus Bivalent Vaccine 8,04/25/2008 MENINGOCOCCAL VACCINE 04/25/2008 MMR VACCINE 01/04/1994 POLIO OPV 03/06/1994,199 3,02/16/1993,12/19 TDAP (7yrs+) 12/02/2022 TDAP, HISTORIC VACCINE 08/14/2006 VARICELLA 04/25/2008,08/13/2007 Family History Medical History Relation Name Comments Diabetes - Type 2 Father Hypertension Father Diabetes - Type 2 Mother Hypertension Mother Diabetes - Type 2 Paternal Grandmother Hypertension Paternal Grandmother Relation Name Status Comments Father Mother Paternal Grandmother Social History Tobacco Use Types Packs/Day Years [...] Date Recorded PHQ2 TOTAL SCORE 0 06/10/2023 [facility] - Occupational Stress [...] place to sleep or slept in a care home (including now)? No 07/26/2024 Sex and Gender Information Value Date Recorded Sex Assigned at Not on file Gender Identity Not on file Sexual Orientation Not on file Last Filed Vital Signs Vital Sign Reading Time Taken Comments Blood Pressure 136/86 10/11/2024 4:17 PM LOCK OPERATOR Pulse 92 10/11/2024 4:17 PM LOCK OPERATOR Temperature 36.5 ??C (97.7 ??F) 10/11/2024 4:17 PM CS T Respiratory Rate 18 10/11/2024 4:17 PM LOCK OPERATOR Oxygen Saturation 98% 10/11/2024 4:17 PM LOCK OPERATOR Inhaled Oxygen Concentration - - Weight 112.9 kg (249 lb) 10/11/2024 4:17 PM LOCK OPERATOR Height 170.2 cm (5' 7 ) 10/11/2024 4:17 PM LOCK OPERATOR Body Mass Index 39 10/11/2024 4:17 PM LOCK OPERATOR Plan of Treatment Upcoming Encounters Date Type Department Care Team (Late st Contact Info) Description 11/22/2024 1:30 PM LOCK OPERATOR Office Visit [facility] - Infectious Disease [address] [facility] [place] [address] Kash Ha MD [address] [place] [address] Health Maintenance Due Date Last Done Comments PAP SMEAR 1992 HEPATITIS B VACCINE (1 of 1 - Risk Dialysis 4-dose series) 03/06/1995 03/06/1994, 07/27/1993, 06/01/1993 HPV VACCINE (3 - 3-dose series) 10/25/2008 06/24/2008, 04/25/2008 PNEUMOCOCCAL VACCINE (1 of 2 - PCV) 2011 DIABETES RETINOPATHY SCREENING 12/03/2022 DIABETES-FOOT EXAM WITH MONOFILAMENT 12/03/2022 COVID-19 VACCINE (1 - season) 2024 INFLUENZA VACCINE (#1) 2024 DEPRESSION SCREENING 11/03/2024 06/10/2023, 06/10/2023, 04/24/2023 DIABETES-HGB A1C 02/26/2025 08/28/2024, , 02/23/2024, Additional history exists DTAP/TDAP/TD VACCINES (7 - Td or Tdap) 12/02/2032 12/02/2022, 08/14/2006, 05/08/1994, Additional history exists ZOSTER VACCINE (1 of 2) 2042 HIB VACCINE Completed 01/04/1994, 05/05, 02/16/1993, Additional history exists MENINGOCOCCAL VACCINE Aged Out 04/25/2008 No marnie shavon eligible based on patient's age to complete this topic HIV SCREENING Completed 02/24/2024, 04/27/2023 HEPATITIS C SCREENING Completed 05/31/2024, 023 MENINGOCOCCAL (Group B) VACCINE Aged Out No longer eligible based on patient's age to complete this topic Medical Devices Implanted Type Area Biological Lab Technician Device Identifier Shelf Expiration Date Model / Serial / Lot Jairo Pascal Drflw Embosafe Chrnc Dlys Implanted:Qty: 1 on 02/25/2024 by Artie Harmon MD at [facility] Right: Chest [employer] 07/03/2026 [id number] / / [id number] Description:IMPLANTED BY DR. JUAN Gill Velvet[employer]ane Drflw Embosafe Chrnc Dlys Implanted:Qty: 1 on 08/06/2024 by Artie Harmon MD at [facility] Left: Chest Wall [employer] 07/03/2026 [id number] / / [id number] Description:Implanted in the left chest wall, via the [facility], by Dr. Candy Harmon. Procedures Procedure Name Priority Date/Time Associated Diagnosis Comments ERYTHROCYTE SEDIMENTATION RATE Routine 10/11/2024 4:43 PM LOCK OPERATOR 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HCC) MRSA bacteremia C-REACTIVE PROTEIN Routine 10/11/2024 4: 43 PM LOCK OPERATOR 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HCC) MRSA bacteremia COMPREHENSIVE METABOLIC PANEL Routine 10/11/2024 4:43 PM LOCK OPERATOR 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HCC) MRSA bacteremia CBC W AUTO DIFFERENTIAL Routine 10/11/20 4:43 PM LOCK OPERATOR 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HCC) MRSA [...] Results * C-REACTIVE PROTEIN (10/11/2024 4:43 PM LOCK OPERATOR) Only the most recent of3 resultswithin the time period is included. C-Reactive Protein 0.5 <=0.5 mg/dL 10/11/2024 5:45 PM LOCK OPERATOR [facility] Blood BLOOD SPECIMEN / Unknown Lab Venipuncture / Unknown 10/11/2024 4:43 PM LOCK OPERATOR 10/11/2024 5:02 PM LOCK OPERATOR Kash Ha MD LAB - CHEMISTRY ORDE WADE [address] [address], [place] [phone] * (ABNORMAL) ERYTHROCYTE SEDIMENTATION RATE (10/11/2024 4:43 PM LOCK OPERATOR) Only the most recent of3 resultswithin the time period is included. [facility] Erythrocyte Sedimentation Rate Westergren 87(H) 0 - 20 MM/HR 10/11/2024 5:27 PM LOCK OPERATOR [facility] Blood BLOOD SPECIMEN / Unknown Lab Venipuncture / Unknown 10/11/2024 4:43 PM LOCK OPERATOR 10/11/2024 5:02 PM LOCK OPERATOR Kash Ha MD LAB - HEMATOLOGY ORD KAUSHAL Performing Organization Address City/[facility]/ZIP Co de Phone Number [address] [address], [place] [phone] * (ABNORMAL) CBC WITH DIFFERENTIAL (10/11/2024 4:43 PM LOCK OPERATOR) Only the most recent of8 resultswithin the time period is included. [facility] WBC 9.0 4.0 - 10.7 x10E9/L 10/11/2024 [...] Lab Venipuncture / Unknown 10/11/2024 4:43 PM LOCK OPERATOR 10/11/2024 5:02 PM LOCK OPERATOR Kash Ha MD LAB - HEMATOLOGY ORD ERABLES [facility] [address] [place] [address], [facility] [phone] * (ABNORMAL) COMPREHENSIVE METABOLIC PANEL (10/11/2024 4:43 PM LOCK OPERATOR) Only the most recent of3 resultswithin the [...] Lab Venipuncture / Unknown 10/11/2024 4:43 PM LOCK OPERATOR 10/11/2024 5:02 PM LOCK OPERATOR Kash Ha MD LAB - CHEMISTRY DIVINA OLVERA Performing Organization Address City/[facility]/ZIP Co de Phone Number [address] [address], [place] [phone] * LAB RESULTS ORDER (09/27/2024) 09/27/2024 Narrative 09/27/2024 Ordered by an unspecified provider. Scanned Document LAB - THERAPEUTIC DR UG MONITORING ORDERABLES * (ABNORMAL) GLUCOSE - POINT OF CARE (09/01/2024 1:19 PM CDT) Only the most recent of15 resultswithin the time period is included. Glucose WB/POC 163(H) 70 - 99 mg/dL 09/01/2024 1:24 PM CDT [facility] Specimen Type Cap Fingerstick 2023 1:24 PM CDT [facility] Blood BLOOD SPECIMEN / Unknown 09/01/2024 1:19 PM CDT 09/01/2024 1:24 PM CDT José Damian MD LAB - POINT OF CARE ORDERABLES Performing Organization Address City/[facility]/ZIP Co de Phone Number [address] [address], [place] [phone] * VANCOMYCIN LEVEL RANDOM (09/01/2024 6:38 AM CDT) Only the most recent of2 resultswithin the time period is included. Vancomycin Random 19.9 Therapeutic Ranges not established for random specimens ug/mL 09/01/2024 8:06 AM CDT [facility] Blood BLOOD SPECIMEN / Unknown Lab Venipuncture / Unknown 09/01/2024 6:38 AM CDT 09/01/2024 7:56 AM CDT [facility] - 09/01/2024 8:06 AM CDT See institution protocol. Harpreet Katz DO LAB - CHEMISTRY DIVINA OLVERA [facility] [address] [place] [address], [facility] [phone] * (ABNORMAL) RENAL FUNCTION PANEL (08/31/2024 7:18 PM CDT) Only the most recent of4 resultswithin the time period is included. BUN 31(H) 7 - 26 mg/dL 08/31/2024 8:37 PM [facility] Creatinine 5.54(H) 0.56 - 0.96 mg/dL 08/31/2024 8:37 PM [facility] Sodium 138 136 - 145 mmol/L 08/31/2024 8:37 PM [facility] Potassium 5.2(H) 3.5 - 4.5 mmol/L 08/31/2024 8:37 PM [facility] Chloride 103 98 - 107 mmol/L 08/31/2024 8:37 PM [facility] CO2 20(L) 22 - 29 mmol/L 08/31/2024 8:37 PM [facility] Glucose 179(H) 70 - 99 mg/dL 08/31/2024 8:37 PM [facility] Albumin 2.3(L) 3.4 - 5.0 g/dL 08/31/2024 8:37 PM [facility] Calcium 8.1(L) 8.4 - 10.2 mg/dL 08/31/2024 8:37 PM CDT [facility] Phosphorus 5.3(H) 2.9 - 5.1 mg/dL 08/31/2024 8:37 PM CDT [facility] Anion Gap 15 6 - 16 08/31/2024 8:37 PM CDT [facility] BUN/Creatinine Ratio 6(L) 7 - 23 08/31/2024 8:37 PM CDT [facility] Osmolality Calculated 297(H) 275 - 295 mOsm/kg 08/31/2024 8:37 PM CDT [facility] eGFR by CKD-EPI 10(L) >=90 mL/min/1.7 3 m2 08/31/2024 8:37 PM CDT [facility] Blood BLOOD SPECIMEN / Unknown Lab Venipuncture / Unknown 08/31/2024 7:18 PM CDT 08/31/2024 8:23 PM CDT Noe Rabago MD LAB - CHEMISTRY DIVINA OLVERA Performing Organization Address City/[facility]/ZIP Co de Phone Number [address] [address], [facility] [phone] * MAGNESIUM BLOOD (08/31/2024 7:18 PM CDT) Only the most recent of5 resultswithin the time period is included. Pathologist [facility] Magnesium 2.1 1.6 - 2.6 mg/dL 08/31/2024 8:37 PM CDT [facility] Blood BLOOD SPECIMEN / Unknown Lab Venipuncture / Unknown 08/31/2024 7:18 PM CDT 08/31/2024 8:23 PM CDT Noe Rabago MD LAB - CHEMISTRY DIVINA OLVERA [address] [address], [facility] [phone] * HCG BETA BLOOD QUANTITATIVE (08/31/2024 6:22 AM CDT) Pathologist [facility] Beta-hCG Total Quantitative <3 mIU/mL 08/31/2024 7:30 AM CDT [facility] Comment: HCG Numeric Result Interpretation: ? [...] Veronica MD LAB - CHEMIS TRY ORDERABLES [facility] [address] [place] [phone], [facility] [phone] * CT US Guided Needle Placement (08/30/2024 3:23 PM CDT) Anatomical Region Laterality Modality Chest, Abdomen Computed Tomogra phy 08/30/2024 3:42 PM CDT Impressions 08/31/2024 9:09 AM CDT Impression: Successful ultrasound-guided placement of a 10 [place] pigtail drainage catheter in right intramuscular abscess, as described above. The aspirate was viscous and purulent, and approximately 15 mL of fluid were drained during the procedure. I, Dr. Sorin Veronica, was present and performed/supervised the entire procedure. ISorin have personally reviewed and interpreted this examination/study. > Interpreting Provider: Sorin Veronica on 08/31/2024 9:09 AM Narrative 08/31/2024 9:09 AM CDT History: 33 year old female with PMHx of recurrent MRSA bacteremia, essential HTN, T2DM, hyperlipidemia, ESRD on HD, CHF, PAD w. 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 Patient with multiple [...] was provided with 1% Lidocaine. ??A 5 [place] coaxial needle system was advanced in stages under real time ultrasound guidance. Upon aspiration, the outer-sheath was advanced within the abscess. An attempt was made for aspiration with a 5 [place]ian catheter without success. Shortly after, a 0.035 wire was advanced through the sheath and following a series of exchanges, an 10 [place] pigtail drainage catheter was advanced within the [...] was provided with 1% Lidocaine. A 5 [place]ian coaxialneedle system was advanced in stages under real time ultrasound guidance. Upon aspiration, the outer-sheath was advanced within the abscess. An attempt was made for aspiration with a 5 [place] Lucian catheter without success.Shortly after, a 0.035 wire was advanced through the sheath and following aseries of exchanges, an 10 [place] pigtail drainage catheter was advanced within the [...] the procedure well and [facility] condition. There were no immediate complicationsassociated with the procedure. Impression: Successful ultrasound-guided placement of a 10 Frenchpigtail drainage catheter in right intramuscular abscess, as described above.The aspirate was viscous and purulent, and approximately 15 mL of fluid were drained during the procedure. I, Dr. Sorin Veronica, was present and performed/supervised the entire procedure. ISorin have personally reviewed and interpreted this examination/study. > Interpreting Provider: Sorin Veronica on 08/31/2024 9:09 AM Briana Larson PA-C CT ORDERABLES * CULTURE FLUID+GRAM STAIN (08/30/2024 3:13 PM CDT) Culture No growth CHARLES 09/04/2024 12:[address] [facility] Gram Stain Light Polymorphonuclear cells 09/04/2024 12:[address] [facility] Gram Stain No organisms seen 024 12:[address] [facility] Other SYNOVIAL FLUID / Unknown Collection / Unknown 08/30/2024 3:13 PM CDT 08/30/2024 3:37 PM CDT Penny Morris MD LAB - MICROBIOLOGY O RDERABLES [facility] [address] [place], [place] [address], [facility] [phone] * CULTURE ANAEROBE (08/30/2024 3:13 PM CDT) Culture No anaerobic organisms isolated CHARLES 09/05/2024 3:[address] [facility] Microbiology BODY FLUID SPECIMEN / Unknown Collection / Unknown 08/30/2024 3:13 PM CDT 08/30/2024 3:37 PM CDT Noe Rabago MD LAB - MICROBIOLOGY O RDERABLES [facility] [address] [place] [address], [facility] [phone] * HCG URINE QUAL POCT NOTIFICATION (08/30/2024 1:58 PM CDT) Comment Notification Label Only - See Separate Report 08/30/2024 3:00 PM CDT [facility] Urine URINE / Unknown 08/30/2024 1 :58 PM CDT 08/30/2024 1:58 PM CDT Sorin Veronica MD LAB - URINAL YSIS ORDERABLES Performing Organization Address City/[facility]/ZIP Co de Phone Number [facility] [address] [place] [address], [facility] [phone] * MRI Shoulder Right Wwo Cont (08/29/2024 [...] myositis. > Dictated by Kranthi Alvarez MD, (resident care aid). I, Xander De Guzman MD have personally reviewed and interpreted this examination/study. > Interpreting Provider: Xander De Guzman MD on 08/30/2024 9:01 AM Narrative 08/30/2024 9:01 AM CDT PROCEDURE: ??MRI SHOULDER RIGHT WWO CONT, DATE/TIME OF EXAM: ??08/29/2024 11:11 AM, LOCATION ??[facility] INDICATION: M86.9: Osteomyelitis of right shoulder, unspecified [...] DATE/TIME OF EXAM: 08/29/2024 11:11 AM, LOCATION [facility] INDICATION: M86.9: Osteomyelitis of right shoulder, unspecified [...] myositis. > Dictated by Kranthi Alvarez MD, (resident care aid). I, Xander De Guzman MD have personally reviewed and interpreted this examination/study. > Interpreting Provider: Xander De Guzman MD on 08/30/2024 9:01 AM Harpreet Sterling ORDERABLES * (ABNORMAL) HEMOGLOBIN A1C (08/28/2024 8:29 PM CDT) [facility] Signature Hemoglobin A1c 7.4(H) <=5.6 % 08/29/2024 8:36 AM CDT [facility] Estimated Average Glucose 166 mg/dL 08/29/2024 8:36 AM T [facility] Comment: HbA1c Interpretation: Normal : < 5.7% Pre-diabetes: 5.7-6.4% Diabetes: Equal to or greater than 6.5% Test results diagnostic of diabetes should be repeated for confirmation. Treatment target values recommended by ADA and other clinical organizations should be used to evaluate metabolic control in patients. Reference: [place] [employer], Standards of Care in Diabetes -2020 In patients 70 years and older consider HbA1c target range of 7.0-7.5% (Reference: Anthony Dillard, et al. JAMDA. 2012) The Sebia assay for the measurement of HbA1c is a National Glycohemoglobin Standardization Program (NGSP) certified method. Blood BLOOD SPECIMEN / Unknown Lab Venipuncture / Unknown 08/28/2024 8:29 PM CDT 08/28/2024 9:24 PM CDT Noe Rabago MD LAB - [facility] Organization Address City/State/ZIP Co de Phone Number [facility] [address] [place] [address], [facility] [phone] * MRI Cervical Spine Wwo Cont (08/27/2024 [...] septic arthritis. This study was dictated by resident care aid Anam Pearson MD and reviewed and edited [...] septic arthritis. This study was dictated by resident care aid Anam Pearson MD and reviewed and edited [...] septic arthritis. This study was dictated by resident care aid Anam Pearson MD and reviewed and edited [...] septic arthritis. This study was dictated by resident care aid Anam Pearson MD and reviewed and edited [...] septic arthritis. This study was dictated by resident care aid Anam Pearson MD and reviewed and edited [...] septic arthritis. This study was dictated by resident care aid Anam Pearson MD and reviewed and edited by the attending. I, Mery Esqueda MD have personally reviewed and interpreted this examination/study. > Interpreting Provider: Mery Esqueda MD on 08/27/2024 12:10 PM Penny Morris MD MR ORDERABLES * CRYSTAL INDENTIFICATION SYNOVIAL FLUID (08/26/2024 9:15 PM CDT) Crystal Exam Fluid To be performed by Pathology. See Path Review. 08/26/2024 11:48 PM CDT [facility] Fluid SYNOVIAL FLUID / Unknown 08/26/2024 9:15 PM CDT 08/26/2024 10:31 PM CDT Penny Morris MD LAB - BODY FLUID ORD ERABLES [address] [address], [facility] [phone] * PATHOLOGY SMEAR BODY FLUID (08/26/2024 9:15 PM CDT) Only the most recent of2 resultswithin the time period is included. Path Review Fluid Confirmed 08/30/2024 12:36 PM CDT [facility] Fluid SYNOVIAL FLUID / Unknown 08/26/2024 9:15 PM CDT 08/26/2024 10:31 PM CDT Narrative [facility] - 08/30/2024 12:36 PM CDT Synovial fluid cytospin (1:10): - ??Red blood cells present, consistent with peripheral blood contamination - ??No crystals seen under polarized light-microscopy Penny Morris MD LAB - PATHOLOGY/CYTO LOGY ORDERABLES Performing Organization Address City/[facility]/ZIP Co de Phone Number [facility] [address] [place] [address], [facility] [phone] * DIFFERENTIAL MANUAL FLUID (08/26/2024 9:15 PM CDT) Fluid Source Synovial 08/26/2024 10:35 PM CDT [facility] Body Fluid Total Cell Count 100 x10E6/L 08/26/2024 10:35 PM CDT [facility] Neutrophils Fluid Percent 83 % 08/26/2024 10:35 PM CDT [facility] Lymphocytes Fluid Percent 5 % 08/26/2024 10:35 PM CDT [facility] Eosinophils Fluid Percent 12 % 08/26/2024 10:35 PM CDT [facility] Fluid SYNOVIAL FLUID / Unknown Collection / Unknown 08/26/2024 9:15 PM CDT 08/26/2024 9:16 PM CDT Narrative [facility] - 08/26/2024 10:35 PM CDT No reference ranges established for body fluid differential cell counts. ??The test results must be integrated into the clinical context for interpretation. Penny Morris MD LAB - BODY FLUID ORD ERABLES Performing Organization Address [facility]/ZIP Co de Phone Number [facility] [address] [place] [address], [place] [phone] * (ABNORMAL) CELL COUNT W DIFFERENTIAL FLUID (08/26/2024 9:15 PM CDT) Fluid Source Synovial 08/26/2024 10:35 PM CDT [facility] Fluid Appearance BLOODY 08/26/2024 10:35 PM CDT [facility] Fluid Color RED 08/26/2024 10:35 PM CDT [facility] Total Nucleated Cells Fluid 3,700(H) <=200 x10E6/L 08/26/2024 10:35 PM CDT [facility] Comment:Clots present. Count may be inaccurate. RBC Count Fluid 1,117,000 Reference Range Not Established x10E6/L 08/26/2024 10:35 PM CDT [facility] Fluid SYNOVIAL FLUID / Unknown Collection / Unknown 08/26/2024 9:15 PM CDT 08/26/2024 9:16 PM CDT Narrative [facility] - 08/26/2024 10:35 PM CDT No reference ranges established for body fluid cell counts. Any reference ranges provided are derived from published literature. The test results must be integrated into the clinical context for interpretation. Penny Morris MD LAB - BODY FLUID ORD ERABLES [facility] [address] [place] [address], [facility] [phone] * XR Shoulder Right 2Vw or More (08/26/2024 8:11 PM CDT) Anatomical Region Laterality Modality Upper Extremity Digital Radiogra phy 08/26/2024 8:45 PM CDT Narrative 08/27/2024 12:36 AM CDT PROCEDURE: ??XR SHOULDER RIGHT 2VW OR MORE, DATE/TIME OF EXAM: ??08/26/2024 8:12 PM, LOCATION ??[facility] INDICATION: M79.89: Swelling of right upper extremity [...] lungs. Report dictated by Graeme Stern DO (resident care aid). I, Arthur Avery MD have personally reviewed and interpreted this examination/study. > Interpreting Provider: Arthur Avery MD on 08/27/2024 12:36 AM Procedure Note Arthur Avery MD - 08/27/2024 PROCEDURE: XR SHOULDER RIGHT 2VW OR MORE, DATE/TIME OF EXAM:08/26/2024 8:12 PM, LOCATION [facility] INDICATION: M79.89: Swelling of right upper extremity [...] lungs. Report dictated by Graeme Stern DO (resident care aid). I, Arthur Avery MD have personally reviewed and interpreted this examination/study. > Interpreting Provider: Arthur Avery MD on 08/27/2024 12:36 AM Penny Morris MD DIAGNOSTIC IMAGING O RDERABLES * SARS-COV-2 (COVID-19)+INFLU A+B PCR RAPID (08/25/2024 10:05 AM CDT) COVID-19 PCR Not detected Not detected 08/25/20 10:55 AM T [facility] Influenza A Rapid RASHAWN Not Detected Not Detected 08/25/2024 10:55 AM T [facility] Influenza B RASHAWN Rapid Not Detected Not Detected 08/25/2024 10:55 AM T [facility] Microbiology SPECIMEN FROM NASOPHARYNGEAL STRUCTURE / Unknown Collection / Unknown 08/25/2024 10:05 AM CDT 08/25/2024 10:18 AM CDT [facility] - 08/25/2024 10:55 AM CDT Influenza assay [...] acid amplification assay performance was validated by [facility]. This test has been authorized by the [...] Morris MD LAB - MICROBIOLOGY O DARRELL [facility] [address] [place] [address], [place] [phone] * CULTURE BLOOD (08/25/2024 10:05 AM CDT) Only the most recent of2 resultswithin the time period is included. Pathologist [facility] Culture No growth day 5 CHARLES 08/30/2024 2:[address] [facility] MICROBIOLOGY Blood PERIPHERAL BLOOD / Unknown Venipuncture / Unknown 08/25/2024 10:05 AM CDT 08/25/2024 10:18 AM CDT Penny Morris MD LAB - MICROBIOLOGY O [facility] MICROBIOLOGY [address] [place] [address], [facility] [phone] * LIPASE BLOOD (08/25/2024 9:50 AM CDT) Pathologist [facility] Lipase 57 8 - 78 U/L 08/25/2024 10:58 AM CDT [facility] Blood BLOOD SPECIMEN / Unknown Venipuncture / Unknown 08/25/2024 9:50 AM CDT 08/25/2024 10:20 AM CDT Narrative [facility] - 08/25/2024 10:58 AM CDT Lipase results from the [employer] Alinity analyzer may not be comparable with other methodologies. Penny Morris MD LAB - CHEMISTRY DIVINA OLVERA Performing Organization Address City/[facility]/ZIP Co de Phone Number [address] [address], [facility] [phone] * HEPATITIS C AB SCREEN RFLX NAAT QUANT (05/31/2024 6:38 PM CDT) Pathologist [facility] Hepatitis C Antibody Non-react talia Non-reac tive 05/31/2024 7:33 PM CDT [facility] Comment:Hepatitis C Antibody screen indicates no [...] Chin III, MD LAB - CHEMISTRY ORDERABLES Performing Organization Address [facility]/ZIP Co de Phone Number [address] [address], [place] [phone] * HIV-1 HIV-2 ANTIBODY + HIV P24 AG PANEL (02/24/2024 8:57 AM CDT) Pathologist [facility] HIV Antigen/Antibod y 1 & 2 Non-reacti ve Non-react talia 02/24/2024 10:03 AM CDT [facility] Comment:No Laboratory eviden ce of HIV infection. Blood BLOOD SPECIMEN / Unknown Lab Venipuncture / Unknown 02/24/2024 8:57 AM CDT 02/24/2024 9:00 AM CDT Rafa Patel MD LAB - CHEMISTRY DIVINA Sweet Organization Address City/State/ZIP Co de Phone Number [facility] [address] [place] [address], [facility] [phone] from Last 3 Months or Most Recently [...] 2:41 AM 05/23/2023 7:59 PM Care Teams Bi Technical Lead Relationship Specialty Start Date End Date Cherise Patrick PA-C [address] [place] [phone] PCP - General 02/23/24
--- OUTSIDE RECORDS SUMMARY | 2024-11-17 02:58 | XMS_ITS | Encounter Summary ---
Author Organization [facility] Health Address [address] [place] [address] Care Team Providers Care Formal Wear Rental Clerk Name Role Phone Cherise Patrick PA-C Primary Care Provider Reason for Visit * Reason Onset Date Comments Appointment 09/22/2024 Encounter Details Date Type Department Care Team (Late st Contact Info) Description 09/22/2024 Telephone [facility] - Infectious Disease [address], [facility] [place] [address] Gail Bueno, RN Appointment Social History Tobacco Use Types Packs/Day Years Used Date Smoking Tobacco: Former Cigarettes S tarted: 2010 Smokeless Tobacco: Never Comments:Quit 4-5 months aft er starting Alcohol Use Standard Drinks/Week Comments Not [...] Date Recorded PHQ2 TOTAL SCORE 0 06/10/2023 [facility] - Occupational Stress Questionnaire Answer Date Recorded [...] place to sleep or slept in a retirement (including now)? No 07/26/2024 Sex and Gender Information Value Date Recorded Sex Assigned at Not on file Gender Identity Not on file Sexual Orientation Not on file documented as of this encounter Functional Status Functional Status Response Date of [...] person have difficulty concentrating/remembering/making decisions? No 07/26/2024 documented as of this encounter Miscellaneous Notes * Telephone Encounter - Gail Bueno, JIMMIE - 09/22/2024 5:37 PM CST Left voicemail asking for call to be returned to reschedule OPAT appointment. PLANT SUPERVISOR documented in this encounter Plan of Treatment Upcoming Encounters Date Type Department Care Team (Late st Contact Info) Description 11/22/2024 1:30 PM BONE PLANT SUPERVISOR Office Visit [facility] - Infectious Disease [address], [facility] [place] [address] Kash Ha MD [address] [place] [address] documented as of this encounter Visit Diagnoses Not on filedocumented in this encounter Additional Health Concerns Infection Onset Date Last Indicated Resolved Time 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
--- OUTSIDE RECORDS SUMMARY | 2024-11-17 02:58 | XMS_ITS | Encounter Summary ---
Author Organization [facility] Health Address [address] [place] [address] Care Team Providers Care Drawer Waxer Name Role Phone Cherise Patrick PA-C Primary Care Provider [phone] Encounter Details Date Type Department Care Team (Latest Contact Info) Description 08/23/2024 Travel Social History Tobacco Use Types Packs/Day Years [...] Date Recorded PHQ2 TOTAL SCORE 0 06/10/2023 [facility] - Occupational Stress [...] place to sleep or slept in a fdc (including now)? 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
--- OUTSIDE RECORDS SUMMARY | 2024-11-17 02:58 | XMS_ITS | Patient Health Summary ---
Author Organization [facility] [employer] Address [address] [place] [address] Care Team Providers Care Coil Wrapper Name Role Phone Cherise Patrick PA-C Primary Care Provider Note from [facility] [place],non-owned Affiliates and Associated Physician Practices is amultiple site organization consisting of ambulatory clinics and hospital sitesin [place], [place], [place] and [place]. This disclosure is being madepursuant to the Care Everywhere program and may not contain all information available regarding this patient. Last updated 18.[facility] [employer] Allergies No known active allergies Medications * Be aware that medications may not be up to date on this document. Alwaysverify current medications with the patient. * blood glucose (OneTouch Verio) test strip(Started 12/12/2022) USE ONE STRIP TO TEST BLOOD SUGAR FOUR TIMES DAILY * Alcohol Swabs (Alcohol Prep) 70 %(Started 12/12/2022) USE ONE SWAB TO CLEAN SKIN FOUR TIMES DAILY BEFORE TESTING * Lancets (ONETOUCH DELICA PLUS 33G EXTRA FINE LANCET)(Started 12/12/2022) USE ONE LANCET TO PRICK FINGER FOUR TIMES DAILY FOR BLOOD GLUCOSE TESTING * Blood Glucose Monitoring Suppl (OneTouch Verio Reflect) w/Device KIT(Started 12/12/2022) Use 1 kit 4 times daily USE METER TO CHECK BLOOD GLUCOSE FOUR TIMES DAILY Reasons: CALL [facility] WHENDELIVERING [id number] * sevelamer carbonate (Renvela) 800 MG(Started 02/28/2024) Take 1 (one) tablet by mouth 3 times daily with meals * renal vitamin (Dialyvite) tablet(Started 02/28/2024) Take 1 (one) tablet by mouth once daily * gabapentin (Neurontin) 300 MG capsule(Started 08/09/2024) Take 1 (one) capsule by mouth every Friday, Friday & Friday * Gauze Pads & Dressings (Gauze Dressing) 4 X4 PADS(Started 08/09/2024) Use 1 Pad every 2 days Apply to right shoulder, change dressing every 48 hours, sooner if needed. 1 refill by 08/09/2025 * lisinopril (Prinivil; Zestril) 20 MG tablet(Started 08/24/2024) Take 1 (one) tablet by mouth once daily * oxyCODONE, immediate release, (Roxicodone) 10 MG tablet(Started 08/31/2024) Take 1 (one) tablet by mouth every 4 hours as needed Reasons: Acute Pain * acetaminophen (Tylenol) 325 MG tablet(Started 09/01/2024) Take 2 (two) tablets by mouth every 6 hours as needed for Fever, Pain or Headache Maximum allowableAcetaminophen amount = 4 Grams (4000 mg) / 24 hours. * apixaban (Eliquis) 5 MG tablet(Started 09/01/2024) Take 1 (one) tablet by mouth 2 times daily for 30 days * carvedilol (Coreg) 25 MG tablet(Started 09/01/2024) Take 1 (one) tablet by mouth 2 times daily with morning and evening meal for 30 days * amLODIPine (Norvasc) 10 MG tablet(Started 09/01/2024) Take 1 (one) tablet by mouth once daily for 30 days * furosemide (Lasix) 40 MG tablet(Started 09/02/2024) Take 1 (one) tablet by mouth every Friday, , & Friday for 30 days Ended Medications* doxycycline hyclate 100 MG tablet(Started 10/11/2024)() Take 1 (one) tablet by mouth 2 times daily for 28 days 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 Immunizations * DTP, HISTORIC VACCINE(Given 05/08/1994, 06/01/1993, 02/16/1993, 1992) * HEP B VACCINE, PED/ADOL(Given 03/06/1994, 07/27/1993, 06/01/1993) * HIB VACCINE(Given 01/04/1994, 06/01/1993, 02/16/1993, 1992) * Human Papilloma Virus Bivalent Vaccine(Given 06/24/2008, 04/25/2008) * MENINGOCOCCAL VACCINE(Given 04/25/2008) * MMR VACCINE(Given 01/04/1994) * POLIO OPV(Given 03/06/1994, 06/01/1993, 02/16/1993, 1992) * TDAP (7yrs+)(Given 12/02/2022) * TDAP, HISTORIC VACCINE(Given 08/14/2006) * VARICELLA(Given 04/25/2008, 08/13/2007) Social History Tobacco Use Types Packs/Day Years [...] Date Recorded PHQ2 TOTAL SCORE 0 06/10/2023 [facility] [place] of Occupat ional Health - Occupational Stress [...] place to sleep or slept in a custodial (including now)? No 07/26/2024 Sex and Gender Information Value Date Recorded Sex Assigned at Not on file Gender Identity Not on file Sexual Orientation Not on file Last Filed Vital Signs Vital Sign Reading Time Taken Comments Blood Pressure 136/86 10/11/2024 4:17 PM [employer]ESSER [employer]ACHINE Pulse 92 10/11/2024 4:17 PM [employer]ESS[employer]ACH[employer] Temperature 36.5 ??C (97.7 ??F) 10/11/2024 4:17 PM CS T Respiratory Rate 18 10/11/2024 4:17 PM PRESSER MACHINE Oxygen Saturation 98% 10/11/2024 4:17 PM PRESS[employer]ACHINE Inhaled Oxygen Concentration - - Weight 112.9 kg (249 lb) 10/11/2024 4:17 PM PRESSER [employer]ACHINE Height 170.2 cm (5' 7 ) 10/11/2024 4:17 PM PRESSER [employer]ACHINE Body Mass Index 39 10/11/2024 4:17 PM PRESSER MACHINE Medical Devices Implanted Type Area Chip Mucker Device Identifier Shelf Expiration Date Model / Serial / Lot Kit Duracristianane Drflw Embosafe Chrnc Dlys Implanted:Qty: 1 on 02/25/2024 by Artie Harmon MD at [facility] Right: Chest [employer] 07/03/2026 [id number] / / [id number] Description:IMPLANTED BY DR. JUAN Pascal Drsjw Embosafe Chrnc Dlys Implanted:Qty: 1 on 08/06/2024 by Artie Harmon MD at [facility] Left: Chest Wall [employer] 07/03/2026 [id number] / / [id number] Description:Implanted in the left chest wall, via the [facility], by Dr. Candy Harmon. Procedures * ERYTHROCYTE SEDIMENTATION RATE(Performed 10/11/2024) Performed for 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HCC), MRSA bacteremia * C-REACTIVE PROTEIN(Performed 10/11/2024) Performed for 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HCC), MRSA bacteremia * COMPREHENSIVE METABOLIC PANEL(Performed 10/11/2024) Performed for 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HCC), MRSA bacteremia * CBC W AUTO DIFFERENTIAL(Performed 10/11/2024) Performed for 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HCC), MRSA bacteremia * LAB RESULTS ORDER(Performed 09/27/2024) * GLUCOSE - POINT OF CARE(Performed 09/01/2024) * GLUCOSE - POINT OF CARE(Performed 09/01/2024) * HEMODIALYSIS INPATIENT(Performed 09/01/2024) * VANCOMYCIN LEVEL RANDOM(Performed 09/01/2024) Performed for MRSA bacteremia * GLUCOSE - POINT OF CARE(Performed 08/31/2024) * CBC W AUTO DIFFERENTIAL(Performed 08/31/2024) * MAGNESIUM BLOOD(Performed 08/31/2024) * RENAL FUNCTION PANEL(Performed 08/31/2024) * GLUCOSE - POINT OF CARE(Performed 08/31/2024) * GLUCOSE - POINT OF CARE(Performed 08/31/2024) * GLUCOSE - POINT OF CARE(Performed 08/31/2024) * HCG BETA BLOOD QUANTITATIVE(Performed 08/31/2024) Performed for Pre-op exam * CBC W AUTO DIFFERENTIAL(Performed 08/31/2024) * MAGNESIUM BLOOD(Performed 08/31/2024) * RENAL FUNCTION PANEL(Performed 08/31/2024) * GLUCOSE - POINT OF CARE(Performed 08/30/2024) * HEMODIALYSIS INPATIENT(Performed 08/30/2024) * CT US GUIDED NEEDLE PLACEMENT(Performed 08/30/2024) Performed for Osteomyelitis of right shoulder, unspecified type (HCC), MRSA bacteremia, Chronic osteomyelitis of right shoulder region (HCC), Acute pain of right shoulder, Abscess of right shoulder * CULTURE ANAEROBE(Performed 08/30/2024) * CULTURE FLUID+GRAM STAIN(Performed 08/30/2024) * HCG URINE QUAL POCT NOTIFICATION(Performed 08/30/2024) * GLUCOSE - POINT OF CARE(Performed 08/30/2024) * GLUCOSE - POINT OF CARE(Performed 08/30/2024) * GLUCOSE - POINT OF CARE(Performed 08/29/2024) * CBC W AUTO DIFFERENTIAL(Performed 08/29/2024) * MAGNESIUM BLOOD(Performed 08/29/2024) * RENAL FUNCTION PANEL(Performed 08/29/2024) * GLUCOSE - POINT OF CARE(Performed 08/29/2024) * GLUCOSE - POINT OF CARE(Performed 08/29/2024) * MRI SHOULDER RIGHT WWO CONT(Performed 08/29/2024) Performed for Osteomyelitis of right shoulder, unspecified type (HCC) * GLUCOSE - POINT OF CARE(Performed 08/29/2024) * HEMOGLOBIN A1C(Performed 08/28/2024) * CBC W AUTO DIFFERENTIAL(Performed 08/28/2024) * MAGNESIUM BLOOD(Performed 08/28/2024) * RENAL FUNCTION PANEL(Performed 08/28/2024) * GLUCOSE - POINT OF CARE(Performed 08/28/2024) * GLUCOSE - POINT OF CARE(Performed 08/28/2024) * HEMODIALYSIS INPATIENT(Performed 08/27/2024) * PT EVAL AND TREAT(Performed 08/27/2024) * OT EVAL AND TREAT(Performed 08/27/2024) * VANCOMYCIN LEVEL RANDOM(Performed 08/27/2024) Performed for Swelling of right upper extremity * MRI CERVICAL SPINE WWO CONT(Performed 08/27/2024) Performed for Swelling of right upper extremity * MRI LUMBAR SPINE WWO CONTRAST(Performed 08/27/2024) Performed for Swelling of right upper extremity * MRI THORACIC SPINE WWO CONT(Performed 08/27/2024) Performed for Swelling of right upper extremity * COMPREHENSIVE METABOLIC PANEL(Performed 08/26/2024) * CBC W AUTO DIFFERENTIAL(Performed 08/26/2024) * PATHOLOGY SMEAR BODY FLUID(Performed 08/26/2024) * PATHOLOGY SMEAR BODY FLUID(Performed 08/26/2024) * DIFFERENTIAL MANUAL FLUID(Performed 08/26/2024) * CRYSTAL INDENTIFICATION SYNOVIAL FLUID(Performed 08/26/2024) * CELL COUNT W DIFFERENTIAL FLUID(Performed 08/26/2024) * XR SHOULDER RIGHT 2VW OR MORE(Performed 08/26/2024) Performed for Swelling of right upper extremity * ERYTHROCYTE SEDIMENTATION RATE(Performed 08/25/2024) * CULTURE BLOOD(Performed 08/25/2024) * SARS-COV-2 (COVID-19)+INFLU A+B PCR RAPID(Performed 08/25/2024) * LIPASE BLOOD(Performed 08/25/2024) * MAGNESIUM BLOOD(Performed 08/25/2024) * C-REACTIVE PROTEIN(Performed 08/25/2024) * COMPREHENSIVE METABOLIC PANEL(Performed 08/25/2024) * CBC W AUTO DIFFERENTIAL(Performed 08/25/2024) * CULTURE BLOOD(Performed 08/25/2024) * CBC W AUTO DIFFERENTIAL(Performed 08/23/2024) Performed for 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HCC) * C-REACTIVE PROTEIN(Performed 08/23/2024) Performed for 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HCC) * ERYTHROCYTE SEDIMENTATION RATE(Performed 08/23/2024) Performed for 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HCC) * GLUCOSE - POINT OF CARE(Performed 08/09/2024) * RENAL FUNCTION PANEL(Performed 08/09/2024) * GLUCOSE - POINT OF CARE(Performed 08/09/2024) * GLUCOSE - POINT OF CARE(Performed 08/08/2024) * GLUCOSE - POINT OF CARE(Performed 08/08/2024) * GLUCOSE - POINT OF CARE(Performed 08/08/2024) * GLUCOSE - POINT OF CARE(Performed 08/08/2024) * GLUCOSE - POINT OF CARE(Performed 08/07/2024) * GLUCOSE - POINT OF CARE(Performed 08/07/2024) * GLUCOSE - POINT OF CARE(Performed 08/07/2024) * PHOSPHORUS BLOOD(Performed 08/07/2024) * MAGNESIUM BLOOD(Performed 08/07/2024) * COMPREHENSIVE METABOLIC PANEL(Performed 08/07/2024) * CBC W AUTO DIFFERENTIAL(Performed 08/07/2024) * PTT SLH(Performed 08/07/2024) * GLUCOSE - POINT OF CARE(Performed 08/06/2024) * HEMODIALYSIS INPATIENT(Performed 08/06/2024) * GLUCOSE - POINT OF CARE(Performed 08/06/2024) * IR CENTRAL LINE INSERT TUNNEL(Performed 08/06/2024) Performed for MRSA bacteremia, ESRD (end stage renal disease) ([facility]) * GLUCOSE - POINT OF CARE(Performed 08/06/2024) * MAGNESIUM BLOOD(Performed 08/06/2024) * RENAL FUNCTION PANEL(Performed 08/06/2024) * CBC W/O DIFFERENTIAL(Performed 08/06/2024) * PTT SLH(Performed 08/06/2024) * XR CHEST 1VW PORTABLE(Performed 08/05/2024) Performed for Hypoxia * BASIC METABOLIC PANEL (CALCIUM TOTAL)(Performed 08/05/2024) * LACTIC ACID BLOOD(Performed 08/05/2024) * BLOOD GASES ART + COOX PANEL(Performed 08/05/2024) * GLUCOSE - POINT OF CARE(Performed 08/05/2024) * GLUCOSE - POINT OF CARE(Performed 08/05/2024) * GLUCOSE - POINT OF CARE(Performed 08/05/2024) * MAGNESIUM BLOOD(Performed 08/05/2024) * CBC W/O DIFFERENTIAL(Performed 08/05/2024) * RENAL FUNCTION PANEL(Performed 08/05/2024) * VANCOMYCIN LEVEL RANDOM(Performed 08/05/2024) * PTT SLH(Performed 08/05/2024) * PTT SLH(Performed 08/04/2024) * GLUCOSE - POINT OF CARE(Performed 08/04/2024) * HEMODIALYSIS INPATIENT(Performed 08/04/2024) * CULTURE BLOOD(Performed 08/04/2024) * CULTURE BLOOD(Performed 08/04/2024) * GLUCOSE - POINT OF CARE(Performed 08/04/2024) * PTT SLH(Performed 08/04/2024) * GLUCOSE - POINT OF CARE(Performed 08/04/2024) * PTT SLH(Performed 08/04/2024) * PTT SLH(Performed 08/04/2024) * RENAL FUNCTION PANEL(Performed 08/04/2024) * PT-INR SLH(Performed 08/04/2024) * MAGNESIUM BLOOD(Performed 08/04/2024) * GLUCOSE - POINT OF CARE(Performed 08/03/2024) * PTT SLH(Performed 08/03/2024) * GLUCOSE - POINT OF CARE(Performed 08/03/2024) * PTT SLH(Performed 08/03/2024) * GLUCOSE - POINT OF CARE(Performed 08/03/2024) * PTT SLH(Performed 08/03/2024) * PT-INR SLH(Performed 08/03/2024) * MAGNESIUM BLOOD(Performed 08/03/2024) * RENAL FUNCTION PANEL(Performed 08/03/2024) * PTT SLH(Performed 08/03/2024) * GLUCOSE - POINT OF CARE(Performed 08/02/2024) * PTT SLH(Performed 08/02/2024) * HEMODIALYSIS INPATIENT(Performed 08/02/2024) * GLUCOSE - POINT OF CARE(Performed 08/02/2024) * CULTURE BLOOD(Performed 08/02/2024) * GLUCOSE - POINT OF CARE(Performed 08/02/2024) * PTT SLH(Performed 08/02/2024) * PT-INR SLH(Performed 08/02/2024) * CBC W AUTO DIFFERENTIAL(Performed 08/02/2024) * MAGNESIUM BLOOD(Performed 08/02/2024) * RENAL FUNCTION PANEL(Performed 08/02/2024) * GLUCOSE - POINT OF CARE(Performed 08/01/2024) * GLUCOSE - POINT OF CARE(Performed 08/01/2024) * C-REACTIVE PROTEIN(Performed 08/01/2024) * ERYTHROCYTE SEDIMENTATION RATE(Performed 08/01/2024) * GLUCOSE - POINT OF CARE(Performed 08/01/2024) * PTT SLH(Performed 08/01/2024) * CULTURE BLOOD(Performed 08/01/2024) * CULTURE BLOOD(Performed 08/01/2024) * PT-INR SLH(Performed 08/01/2024) * CBC W AUTO DIFFERENTIAL(Performed 08/01/2024) * MAGNESIUM BLOOD(Performed 08/01/2024) * RENAL FUNCTION PANEL(Performed 08/01/2024) * PTT SLH(Performed 08/01/2024) * PTT SLH(Performed 07/31/2024) * CBC W AUTO DIFFERENTIAL(Performed 07/31/2024) * CULTURE BLOOD(Performed 07/31/2024) * GLUCOSE - POINT OF CARE(Performed 07/31/2024) * HEMODIALYSIS INPATIENT(Performed 07/31/2024) * GLUCOSE - POINT OF CARE(Performed 07/31/2024) * GLUCOSE - POINT OF CARE(Performed 07/31/2024) * PT-INR SLH(Performed 07/31/2024) * PTT SLH(Performed 07/31/2024) * MAGNESIUM BLOOD(Performed 07/31/2024) * VANCOMYCIN LEVEL RANDOM(Performed 07/31/2024) * RENAL FUNCTION PANEL(Performed 07/31/2024) * CBC W/O DIFFERENTIAL(Performed 07/31/2024) * GLUCOSE - POINT OF CARE(Performed 07/30/2024) * XR CHEST 1VW PORTABLE(Performed 07/30/2024) Performed for ESRD (end stage renal disease) ([facility]) * IR CENTRAL LINE INSERT TUNNEL(Performed 07/30/2024) Performed for MRSA bacteremia, ESRD (end stage renal disease) ([facility]) * ECHO MATT COMPLETE(Performed 07/30/2024) Performed for Sepsis due to methicillin resistant Staphylococcus aureus (MRSA), unspecified whetheracute organ dysfunction present ([facility]) * GLUCOSE - POINT OF CARE(Performed 07/30/2024) * CULTURE BLOOD(Performed 07/30/2024) * CULTURE BLOOD(Performed 07/30/2024) * MRI CERVICAL SPINE WWO CONT(Performed 07/30/2024) Performed for MRSA bacteremia * VAS ARTERIAL MULTILEVEL LE(Performed 07/30/2024) Performed for Chronic heel ulcer, right, with unspecified severity ([facility]) * VAS RIGHT VENOUS DUPLEX UE(Performed 07/30/2024) Performed for Swelling of right upper extremity * MAGNESIUM BLOOD(Performed 07/30/2024) * RENAL FUNCTION PANEL(Performed 07/30/2024) * CBC W/O DIFFERENTIAL(Performed 07/30/2024) * GLUCOSE - POINT OF CARE(Performed 07/29/2024) * CULTURE BLOOD(Performed 07/29/2024) * CULTURE BLOOD(Performed 07/29/2024) * GLUCOSE - POINT OF CARE(Performed 07/29/2024) * GLUCOSE - POINT OF CARE(Performed 07/29/2024) * VANCOMYCIN LEVEL RANDOM(Performed 07/29/2024) * RENAL FUNCTION PANEL(Performed 07/29/2024) * CBC W/O DIFFERENTIAL(Performed 07/29/2024) * GLUCOSE - POINT OF CARE(Performed 07/29/2024) * GLUCOSE - POINT OF CARE(Performed 07/28/2024) * CULTURE BLOOD(Performed 07/28/2024) * CULTURE BLOOD(Performed 07/28/2024) * GLUCOSE - POINT OF CARE(Performed 07/28/2024) * IR CENTRAL LINE REMOVAL(Performed 07/28/2024) Performed for Sepsis, due to unspecified organism, unspecified whether acute organ dysfunction present ([facility]), MRSA bacteremia * CT FOOT RIGHT W CONTRAST(Performed 07/28/2024) Performed for Chronic heel ulcer, right, with unspecified severity ([facility]) * GLUCOSE - POINT OF CARE(Performed 07/28/2024) * ECHO COMPLETE W CONTRAST(Performed 07/28/2024) Performed for Sepsis, due to unspecified organism, unspecified whether acute organ dysfunction present ([facility]) * GLUCOSE - POINT OF CARE(Performed 07/28/2024) * RENAL FUNCTION PANEL(Performed 07/28/2024) * CBC W/O DIFFERENTIAL(Performed 07/28/2024) * GLUCOSE - POINT OF CARE(Performed 07/28/2024) * CT CHEST ABDOMEN PELVIS W CONT(Performed 07/27/2024) Performed for Sepsis, due to unspecified organism, unspecified whether acute organ dysfunction present ([facility]) * GLUCOSE - POINT OF CARE(Performed 07/27/2024) * GLUCOSE - POINT OF CARE(Performed 07/27/2024) * HEMODIALYSIS INPATIENT(Performed 07/27/2024) * CULTURE WOUND+GRAM STAIN(Performed 07/27/2024) * CULTURE FUNGUS OTHER+FUNGUS SMEAR(Performed 07/27/2024) * CULTURE ANAEROBE(Performed 07/27/2024) * ENDOTRACHEAL TUBE NOTE(Performed 07/27/2024) * AL MATI SUBQ TISSUE 20 SQ CM/<(Performed 07/27/2024) Performed for Pyogenic arthritis of right shoulder region, due to unspecified organism ([facility]) * HCG BETA BLOOD QUANTITATIVE(Performed 07/27/2024) * RENAL FUNCTION PANEL(Performed 07/27/2024) * CBC W/O DIFFERENTIAL(Performed 07/27/2024) * CULTURE BLOOD(Performed 07/26/2024) * CULTURE BLOOD(Performed 07/26/2024) * GLUCOSE - POINT OF CARE(Performed 07/26/2024) * GLUCOSE - POINT OF CARE(Performed 07/26/2024) * TYPE + SCREEN PANEL(Performed 07/26/2024) * XR SHOULDER RIGHT 2VW OR MORE(Performed 07/26/2024) Performed for Pyogenic arthritis of right shoulder region, due to unspecified organism (HCC), Acutepain of right shoulder * PATHOLOGY SMEAR BODY FLUID(Performed 07/26/2024) * DIFFERENTIAL MANUAL FLUID(Performed 07/26/2024) * CRYSTAL INDENTIFICATION SYNOVIAL FLUID(Performed 07/26/2024) * CELL COUNT W DIFFERENTIAL FLUID(Performed 07/26/2024) * CULTURE ANAEROBE(Performed 07/26/2024) * CULTURE FLUID+GRAM STAIN(Performed 07/26/2024) * GLUCOSE - POINT OF CARE(Performed 07/26/2024) * VANCOMYCIN LEVEL RANDOM(Performed 07/26/2024) * B-TYPE NATRIURETIC PEPTIDE(Performed 07/26/2024) * PROCALCITONIN LEVEL(Performed 07/26/2024) * RENAL FUNCTION PANEL(Performed 07/26/2024) * CBC W/O DIFFERENTIAL(Performed 07/26/2024) * XR CHEST 1VW PORTABLE(Performed 07/25/2024) Performed for Pneumonia of both lungs due to infectious organism, unspecified part of lung * CULTURE BLOOD(Performed 07/25/2024) * PTT SLH(Performed 07/25/2024) * PT-INR SLH(Performed 07/25/2024) * LACTIC ACID BLOOD(Performed 07/25/2024) * ERYTHROCYTE SEDIMENTATION RATE(Performed 07/25/2024) * C-REACTIVE PROTEIN(Performed 07/25/2024) * RENAL FUNCTION PANEL(Performed 07/25/2024) * CBC W/O DIFFERENTIAL(Performed 07/25/2024) * BCID PANEL(Performed 07/25/2024) * CULTURE BLOOD(Performed 07/25/2024) * GLUCOSE - POINT OF CARE(Performed 07/25/2024) * GLUCOSE - POINT OF CARE(Performed 06/03/2024) * GLUCOSE - POINT OF CARE(Performed 06/03/2024) * GLUCOSE - POINT OF CARE(Performed 06/03/2024) * HEMODIALYSIS INPATIENT(Performed 06/03/2024) * CBC W AUTO DIFFERENTIAL(Performed 06/03/2024) * RENAL FUNCTION PANEL(Performed 06/03/2024) * GLUCOSE - POINT OF CARE(Performed 06/02/2024) * GLUCOSE - POINT OF CARE(Performed 06/02/2024) * GLUCOSE - POINT OF CARE(Performed 06/02/2024) * GLUCOSE - POINT OF CARE(Performed 06/02/2024) * FERRITIN(Performed 06/02/2024) * IRON + TRANSFERRIN PANEL(Performed 06/02/2024) * CBC W AUTO DIFFERENTIAL(Performed 06/02/2024) * RENAL FUNCTION PANEL(Performed 06/02/2024) * GLUCOSE - POINT OF CARE(Performed 06/01/2024) * GLUCOSE - POINT OF CARE(Performed 06/01/2024) * GLUCOSE - POINT OF CARE(Performed 06/01/2024) * VANCOMYCIN LEVEL RANDOM(Performed 06/01/2024) * CBC W AUTO DIFFERENTIAL(Performed 06/01/2024) * RENAL FUNCTION PANEL(Performed 06/01/2024) * GLUCOSE - POINT OF CARE(Performed 05/31/2024) * HEPATITIS C AB SCREEN RFLX NAAT QUANT(Performed 05/31/2024) * HEMODIALYSIS INPATIENT(Performed 05/31/2024) * GLUCOSE - POINT OF CARE(Performed 05/31/2024) * GLUCOSE - POINT OF CARE(Performed 05/31/2024) * GLUCOSE - POINT OF CARE(Performed 05/31/2024) * CBC W AUTO DIFFERENTIAL(Performed 05/31/2024) * RENAL FUNCTION PANEL(Performed 05/31/2024) * GLUCOSE - POINT OF CARE(Performed 05/30/2024) * GLUCOSE - POINT OF CARE(Performed 05/30/2024) * GLUCOSE - POINT OF CARE(Performed 05/30/2024) * GLUCOSE - POINT OF CARE(Performed 05/30/2024) * CBC W AUTO DIFFERENTIAL(Performed 05/30/2024) * RENAL FUNCTION PANEL(Performed 05/30/2024) * GLUCOSE - POINT OF CARE(Performed 05/29/2024) * GLUCOSE - POINT OF CARE(Performed 05/29/2024) * GLUCOSE - POINT OF CARE(Performed 05/29/2024) * GLUCOSE - POINT OF CARE(Performed 05/29/2024) * GLUCOSE - POINT OF CARE(Performed 05/29/2024) * VANCOMYCIN LEVEL RANDOM(Performed 05/29/2024) * CBC W AUTO DIFFERENTIAL(Performed 05/29/2024) * RENAL FUNCTION PANEL(Performed 05/29/2024) * GLUCOSE - POINT OF CARE(Performed 05/28/2024) * GLUCOSE - POINT OF CARE(Performed 05/28/2024) * HEMODIALYSIS INPATIENT(Performed 05/28/2024) * GLUCOSE - POINT OF CARE(Performed 05/28/2024) * GLUCOSE - POINT OF CARE(Performed 05/28/2024) * MRI SHOULDER LEFT WWO CONT(Performed 05/28/2024) Performed for ESRD (end stage renal disease) ([facility]) * CBC W AUTO DIFFERENTIAL(Performed 05/28/2024) * RENAL FUNCTION PANEL(Performed 05/28/2024) * GLUCOSE - POINT OF CARE(Performed 05/27/2024) * GLUCOSE - POINT OF CARE(Performed 05/27/2024) * GLUCOSE - POINT OF CARE(Performed 05/27/2024) * GLUCOSE - POINT OF CARE(Performed 05/27/2024) * HEMOGLOBIN ELECTROPHORESIS(Performed 05/27/2024) * CBC W AUTO DIFFERENTIAL(Performed 05/27/2024) * RENAL FUNCTION PANEL(Performed 05/27/2024) * VANCOMYCIN LEVEL RANDOM(Performed 05/27/2024) * GLUCOSE - POINT OF CARE(Performed 05/26/2024) * HEMODIALYSIS INPATIENT(Performed 05/26/2024) * GLUCOSE - POINT OF CARE(Performed 05/26/2024) * GLUCOSE - POINT OF CARE(Performed 05/26/2024) * GLUCOSE - POINT OF CARE(Performed 05/26/2024) * HEMOGLOBIN ELECTROPHORESIS(Performed 05/26/2024) * CBC W AUTO DIFFERENTIAL(Performed 05/26/2024) * RENAL FUNCTION PANEL(Performed 05/26/2024) * GLUCOSE - POINT OF CARE(Performed 05/25/2024) * GLUCOSE - POINT OF CARE(Performed 05/25/2024) * GLUCOSE - POINT OF CARE(Performed 05/25/2024) * CBC W AUTO DIFFERENTIAL(Performed 05/25/2024) * RENAL FUNCTION PANEL(Performed 05/25/2024) * HEMOGLOBIN A1C(Performed 05/25/2024) * GLUCOSE - POINT OF CARE(Performed 05/24/2024) * GLUCOSE - POINT OF CARE(Performed 05/24/2024) * HEMODIALYSIS INPATIENT(Performed 05/24/2024) * CULTURE ANAEROBE(Performed 05/24/2024) * CULTURE FLUID+GRAM STAIN(Performed 05/24/2024) * PATHOLOGY SMEAR BODY FLUID(Performed 05/24/2024) * PATHOLOGY SMEAR BODY FLUID(Performed 05/24/2024) * DIFFERENTIAL MANUAL FLUID(Performed 05/24/2024) * CRYSTAL INDENTIFICATION SYNOVIAL FLUID(Performed 05/24/2024) * CELL COUNT W DIFFERENTIAL FLUID(Performed 05/24/2024) * XR SHOULDER LEFT 2VW OR MORE(Performed 05/24/2024) Performed for Osteomyelitis of left shoulder, unspecified type (HCC) * GLUCOSE - POINT OF CARE(Performed 05/24/2024) * C-REACTIVE PROTEIN(Performed 05/24/2024) * COMPREHENSIVE METABOLIC PANEL(Performed 05/24/2024) * GLUCOSE - POINT OF CARE(Performed 05/24/2024) * VANCOMYCIN LEVEL RANDOM(Performed 05/24/2024) * ERYTHROCYTE SEDIMENTATION RATE(Performed 05/24/2024) * CBC W/O DIFFERENTIAL(Performed 05/24/2024) * GLUCOSE - POINT OF CARE(Performed 03/02/2024) * GLUCOSE - POINT OF CARE(Performed 03/02/2024) * GLUCOSE - POINT OF CARE(Performed 03/02/2024) * VANCOMYCIN LEVEL RANDOM(Performed 03/02/2024) * CBC W AUTO DIFFERENTIAL(Performed 03/02/2024) * MAGNESIUM BLOOD(Performed 03/02/2024) * PHOSPHORUS BLOOD(Performed 03/02/2024) * BASIC METABOLIC PANEL (CALCIUM TOTAL)(Performed 03/02/2024) * GLUCOSE - POINT OF CARE(Performed 03/01/2024) * GLUCOSE - POINT OF CARE(Performed 03/01/2024) * GLUCOSE - POINT OF CARE(Performed 03/01/2024) * GLUCOSE - POINT OF CARE(Performed 03/01/2024) * GLUCOSE - POINT OF CARE(Performed 03/01/2024) * DIFFERENTIAL MANUAL(Performed 03/01/2024) * CBC W AUTO DIFFERENTIAL(Performed 03/01/2024) * MAGNESIUM BLOOD(Performed 03/01/2024) * PHOSPHORUS BLOOD(Performed 03/01/2024) * BASIC METABOLIC PANEL (CALCIUM TOTAL)(Performed 03/01/2024) * GLUCOSE - POINT OF CARE(Performed 02/29/2024) * GLUCOSE - POINT OF CARE(Performed 02/29/2024) * GLUCOSE - POINT OF CARE(Performed 02/29/2024) * VANCOMYCIN LEVEL RANDOM(Performed 02/29/2024) * CBC W AUTO DIFFERENTIAL(Performed 02/29/2024) * MAGNESIUM BLOOD(Performed 02/29/2024) * PHOSPHORUS BLOOD(Performed 02/29/2024) * BASIC METABOLIC PANEL (CALCIUM TOTAL)(Performed 02/29/2024) * GLUCOSE - POINT OF CARE(Performed 02/28/2024) * GLUCOSE - POINT OF CARE(Performed 02/28/2024) * GLUCOSE - POINT OF CARE(Performed 02/28/2024) * GLUCOSE - POINT OF CARE(Performed 02/28/2024) * VANCOMYCIN LEVEL RANDOM(Performed 02/28/2024) * CBC W AUTO DIFFERENTIAL(Performed 02/28/2024) * MAGNESIUM BLOOD(Performed 02/28/2024) * PHOSPHORUS BLOOD(Performed 02/28/2024) * BASIC METABOLIC PANEL (CALCIUM TOTAL)(Performed 02/28/2024) * GLUCOSE - POINT OF CARE(Performed 02/28/2024) * GLUCOSE - POINT OF CARE(Performed 02/27/2024) * GLUCOSE - POINT OF CARE(Performed 02/27/2024) * HEMODIALYSIS INPATIENT(Performed 02/27/2024) * GLUCOSE - POINT OF CARE(Performed 02/27/2024) * GLUCOSE - POINT OF CARE(Performed 02/27/2024) * CBC W AUTO DIFFERENTIAL(Performed 02/27/2024) * MAGNESIUM BLOOD(Performed 02/27/2024) * PHOSPHORUS BLOOD(Performed 02/27/2024) * BASIC METABOLIC PANEL (CALCIUM TOTAL)(Performed 02/27/2024) * GLUCOSE - POINT OF CARE(Performed 02/27/2024) * HEMODIALYSIS INPATIENT(Performed 02/26/2024) * GLUCOSE - POINT OF CARE(Performed 02/26/2024) * HEMODIALYSIS INPATIENT(Performed 02/26/2024) * GLUCOSE - POINT OF CARE(Performed 02/26/2024) * VANCOMYCIN LEVEL RANDOM(Performed 02/26/2024) * CBC W AUTO DIFFERENTIAL(Performed 02/26/2024) * MAGNESIUM BLOOD(Performed 02/26/2024) * PHOSPHORUS BLOOD(Performed 02/26/2024) * BASIC METABOLIC PANEL (CALCIUM TOTAL)(Performed 02/26/2024) * GLUCOSE - POINT OF CARE(Performed 02/26/2024) * GLUCOSE - POINT OF CARE(Performed 02/25/2024) * GLUCOSE - POINT OF CARE(Performed 02/25/2024) * GLUCOSE - POINT OF CARE(Performed 02/25/2024) * IR CENTRAL LINE REPLACE(Performed 02/25/2024) Performed for ESRD (end stage renal disease) (HCC) * CT GUIDED NEEDLE PLACEMENT(Performed 02/25/2024) Performed for Shoulder abscess * CULTURE ANAEROBE(Performed 02/25/2024) * CULTURE FUNGUS OTHER+FUNGUS SMEAR(Performed 02/25/2024) * CULTURE AFB+SMEAR(Performed 02/25/2024) * CULTURE WOUND+GRAM STAIN(Performed 02/25/2024) * GLUCOSE - POINT OF CARE(Performed 02/25/2024) * GLUCOSE - POINT OF CARE(Performed 02/25/2024) * VITAMIN D 25-HYDROXY(Performed 02/25/2024) * PTH INTACT W/O CALCIUM(Performed 02/25/2024) * VITAMIN B12(Performed 02/25/2024) * FOLATE(Performed 02/25/2024) * FERRITIN(Performed 02/25/2024) * IRON + TRANSFERRIN PANEL(Performed 02/25/2024) * CBC W AUTO DIFFERENTIAL(Performed 02/25/2024) * MAGNESIUM BLOOD(Performed 02/25/2024) * PHOSPHORUS BLOOD(Performed 02/25/2024) * BASIC METABOLIC PANEL (CALCIUM TOTAL)(Performed 02/25/2024) * CHLAMYDIA + GC AMPLIFIED PROBE(Performed 02/24/2024) * URINE MICROSCOPIC ONLY REFLEX TO CULTURE(Performed 02/24/2024) * URINALYSIS REFLEX MICROSCOPIC REFLEX CULTURE(Performed 02/24/2024) * CULTURE URINE(Performed 02/24/2024) * GLUCOSE - POINT OF CARE(Performed 02/24/2024) * GLUCOSE - POINT OF CARE(Performed 02/24/2024) * HIV-1 HIV-2 ANTIBODY + HIV P24 AG PANEL(Performed 02/24/2024) * GLUCOSE - POINT OF CARE(Performed 02/24/2024) * GLUCOSE - POINT OF CARE(Performed 02/24/2024) * HEPATITIS B SURFACE ANTIBODY(Performed 02/24/2024) * CBC W AUTO DIFFERENTIAL(Performed 02/24/2024) * MAGNESIUM BLOOD(Performed 02/24/2024) * PHOSPHORUS BLOOD(Performed 02/24/2024) * BASIC METABOLIC PANEL (CALCIUM TOTAL)(Performed 02/24/2024) * GLUCOSE - POINT OF CARE(Performed 02/23/2024) * XR FOOT RIGHT 3VW OR MORE(Performed 02/23/2024) 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, unspecified ulcer stage (HCC) * HEMODIALYSIS INPATIENT(Performed 02/23/2024) * GLUCOSE - POINT OF CARE(Performed 02/23/2024) * HEPATITIS B SURFACE ANTIGEN W RFLX CONFIRMATION(Performed 02/23/2024) * C-REACTIVE PROTEIN(Performed 02/23/2024) * ERYTHROCYTE SEDIMENTATION RATE(Performed 02/23/2024) * SYPHILIS ANTIBODY CASCADING REFLEX(Performed 02/23/2024) * VANCOMYCIN LEVEL RANDOM(Performed 02/23/2024) * CBC W AUTO DIFFERENTIAL(Performed 02/23/2024) * MAGNESIUM BLOOD(Performed 02/23/2024) * PHOSPHORUS BLOOD(Performed 02/23/2024) * BASIC METABOLIC PANEL (CALCIUM TOTAL)(Performed 02/23/2024) * HEMOGLOBIN A1C(Performed 02/23/2024) * GLUCOSE - POINT OF CARE(Performed 02/23/2024) * URINALYSIS REFLEX TO MICROSCOPIC NO CULTURE(Performed 02/23/2024) * GLUCOSE - POINT OF CARE(Performed 02/23/2024) * MRSA DNA PCR(Performed 02/22/2024) * PATHOLOGY SMEAR BODY FLUID(Performed 02/22/2024) * CRYSTAL INDENTIFICATION SYNOVIAL FLUID(Performed 02/22/2024) * DIFFERENTIAL MANUAL FLUID(Performed 02/22/2024) * CELL COUNT W DIFFERENTIAL FLUID(Performed 02/22/2024) * CULTURE GC(Performed 02/22/2024) * CULTURE FUNGUS OTHER+FUNGUS SMEAR(Performed 02/22/2024) * CULTURE FLUID+GRAM STAIN(Performed 02/22/2024) * CULTURE ANAEROBE(Performed 02/22/2024) * CULTURE AFB+SMEAR(Performed 02/22/2024) * CULTURE BLOOD(Performed 02/22/2024) * DIFFERENTIAL MANUAL(Performed 02/22/2024) * HCG BETA BLOOD QUANTITATIVE(Performed 02/22/2024) * PHOSPHORUS BLOOD(Performed 02/22/2024) * MAGNESIUM BLOOD(Performed 02/22/2024) * PT-INR [facility]H(Performed 02/22/2024) * LACTIC ACID BLOOD(Performed 02/22/2024) * COMPREHENSIVE METABOLIC PANEL(Performed 02/22/2024) * CBC W AUTO DIFFERENTIAL(Performed 02/22/2024) * CULTURE BLOOD(Performed 02/22/2024) * XR SHOULDER RIGHT 2VW OR MORE(Performed 02/22/2024) 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) * XR SHOULDER LEFT 2VW OR MORE(Performed 02/22/2024) 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) * XR CHEST 1VW PORTABLE(Performed 02/22/2024) Performed for Pneumonia due to infectious organism, unspecified laterality, unspecified part of lung * CBC W AUTO DIFFERENTIAL(Performed 06/10/2023) Performed for Osteomyelitis of right foot, unspecified type (HCC) * C-REACTIVE PROTEIN(Performed 06/10/2023) Performed for Osteomyelitis of right foot, unspecified type (HCC) * ERYTHROCYTE SEDIMENTATION RATE(Performed 06/10/2023) Performed for Osteomyelitis of right foot, unspecified type (HCC) * COMPREHENSIVE METABOLIC PANEL(Performed 06/10/2023) Performed for Osteomyelitis of right foot, unspecified type (HCC) * GLUCOSE - POINT OF CARE(Performed 05/23/2023) * GLUCOSE - POINT OF CARE(Performed 05/23/2023) * GLUCOSE - POINT OF CARE(Performed 05/23/2023) * GLUCOSE - POINT OF CARE(Performed 05/22/2023) * GLUCOSE - POINT OF CARE(Performed 05/22/2023) * VAS RIGHT VENOUS DUPLEX UE(Performed 05/22/2023) Performed for Thrombophlebitis, Swelling of right upper extremity * GLUCOSE - POINT OF CARE(Performed 05/22/2023) * GLUCOSE - POINT OF CARE(Performed 05/22/2023) * CBC W AUTO DIFFERENTIAL(Performed 05/22/2023) * COMPREHENSIVE METABOLIC PANEL(Performed 05/22/2023) * MAGNESIUM BLOOD(Performed 05/22/2023) * PHOSPHORUS BLOOD(Performed 05/22/2023) * C-REACTIVE PROTEIN(Performed 05/22/2023) * GLUCOSE - POINT OF CARE(Performed 05/21/2023) * GLUCOSE - POINT OF CARE(Performed 05/21/2023) * ECHO COMPLETE(Performed 05/21/2023) Performed for Bacteremia due to Gram-positive bacteria * GLUCOSE - POINT OF CARE(Performed 05/21/2023) * CULTURE BLOOD(Performed 05/21/2023) * VANCOMYCIN LEVEL TROUGH(Performed 05/21/2023) * CBC W AUTO DIFFERENTIAL(Performed 05/21/2023) * COMPREHENSIVE METABOLIC PANEL(Performed 05/21/2023) * MAGNESIUM BLOOD(Performed 05/21/2023) * PHOSPHORUS BLOOD(Performed 05/21/2023) * CULTURE BLOOD(Performed 05/21/2023) * GLUCOSE - POINT OF CARE(Performed 05/21/2023) * GLUCOSE - POINT OF CARE(Performed 05/20/2023) * GLUCOSE - POINT OF CARE(Performed 05/20/2023) * GLUCOSE - POINT OF CARE(Performed 05/20/2023) * GLUCOSE - POINT OF CARE(Performed 05/20/2023) * VANCOMYCIN LEVEL PEAK(Performed 05/20/2023) * GLUCOSE - POINT OF CARE(Performed 05/20/2023) * CBC W AUTO DIFFERENTIAL(Performed 05/20/2023) * COMPREHENSIVE METABOLIC PANEL(Performed 05/20/2023) * MAGNESIUM BLOOD(Performed 05/20/2023) * PHOSPHORUS BLOOD(Performed 05/20/2023) * GLUCOSE - POINT OF CARE(Performed 05/20/2023) * GLUCOSE - POINT OF CARE(Performed 05/19/2023) * GLUCOSE - POINT OF CARE(Performed 05/19/2023) * CARDIAC EKG ORDER(Performed 05/19/2023) * CULTURE BLOOD(Performed 05/19/2023) * CULTURE BLOOD(Performed 05/19/2023) * GLUCOSE - POINT OF CARE(Performed 05/19/2023) * GLUCOSE - POINT OF CARE(Performed 05/19/2023) * VAS RIGHT VENOUS DUPLEX UE(Performed 05/19/2023) Performed for Arm swelling * RBC MORPHOLOGY(Performed 05/19/2023) * CBC W AUTO DIFFERENTIAL(Performed 05/19/2023) * COMPREHENSIVE METABOLIC PANEL(Performed 05/19/2023) * MAGNESIUM BLOOD(Performed 05/19/2023) * PHOSPHORUS BLOOD(Performed 05/19/2023) * GLUCOSE - POINT OF CARE(Performed 05/19/2023) * GLUCOSE - POINT OF CARE(Performed 05/18/2023) * GLUCOSE - POINT OF CARE(Performed 05/18/2023) * PROTEIN CREATININE RATIO URINE RANDOM PNL(Performed 05/18/2023) * GLUCOSE - POINT OF CARE(Performed 05/18/2023) * GLUCOSE - POINT OF CARE(Performed 05/18/2023) * RBC MORPHOLOGY(Performed 05/18/2023) * CBC W AUTO DIFFERENTIAL(Performed 05/18/2023) * COMPREHENSIVE METABOLIC PANEL(Performed 05/18/2023) * MAGNESIUM BLOOD(Performed 05/18/2023) * PHOSPHORUS BLOOD(Performed 05/18/2023) * VANCOMYCIN LEVEL RANDOM(Performed 05/18/2023) * CT ANGIO CHEST PULM EMBOLISM(Performed 05/18/2023) Performed for Hypoxia * CT HUMERUS RIGHT W CONTRAST(Performed 05/18/2023) Performed for Arm swelling * TROPONIN-I HIGH SENSITIVE REFLEX 1HOUR(Performed 05/17/2023) * EKG 12-LEAD(Performed 05/17/2023) Performed for Hypoxia * BLOOD GASES SUZANNE + COOX PANEL(Performed 05/17/2023) * XR CHEST 1VW PORTABLE(Performed 05/17/2023) Performed for Hypoxia * HCG BETA BLOOD QUANTITATIVE(Performed 05/17/2023) * RBC MORPHOLOGY(Performed 05/17/2023) * B-TYPE NATRIURETIC PEPTIDE(Performed 05/17/2023) * LACTIC ACID BLOOD(Performed 05/17/2023) * TROPONIN-I HIGH SENSITIVE BASELINE + 1HR(Performed 05/17/2023) * COMPREHENSIVE METABOLIC PANEL(Performed 05/17/2023) * CBC W AUTO DIFFERENTIAL(Performed 05/17/2023) * BCID PANEL(Performed 05/17/2023) * CULTURE BLOOD(Performed 05/17/2023) * CULTURE BLOOD(Performed 05/17/2023) * SARS-COV-2 (COVID-19) RAPID(Performed 05/09/2023) * GLUCOSE - POINT OF CARE(Performed 05/09/2023) * GLUCOSE - POINT OF CARE(Performed 05/09/2023) * CBC W/O DIFFERENTIAL(Performed 05/09/2023) * VANCOMYCIN LEVEL TROUGH(Performed 05/09/2023) * MAGNESIUM BLOOD(Performed 05/09/2023) * RENAL FUNCTION PANEL(Performed 05/09/2023) * GLUCOSE - POINT OF CARE(Performed 05/08/2023) * GLUCOSE - POINT OF CARE(Performed 05/08/2023) * VANCOMYCIN LEVEL PEAK(Performed 05/08/2023) * GLUCOSE - POINT OF CARE(Performed 05/08/2023) * CBC W/O DIFFERENTIAL(Performed 05/08/2023) * MAGNESIUM BLOOD(Performed 05/08/2023) * RENAL FUNCTION PANEL(Performed 05/08/2023) * GLUCOSE - POINT OF CARE(Performed 05/07/2023) * GLUCOSE - POINT OF CARE(Performed 05/07/2023) * GLUCOSE - POINT OF CARE(Performed 05/07/2023) * CBC W/O DIFFERENTIAL(Performed 05/07/2023) * MAGNESIUM BLOOD(Performed 05/07/2023) * RENAL FUNCTION PANEL(Performed 05/07/2023) * GLUCOSE - POINT OF CARE(Performed 05/06/2023) * GLUCOSE - POINT OF CARE(Performed 05/06/2023) * GLUCOSE - POINT OF CARE(Performed 05/06/2023) * VANCOMYCIN LEVEL RANDOM(Performed 05/06/2023) * CBC W/O DIFFERENTIAL(Performed 05/06/2023) * MAGNESIUM BLOOD(Performed 05/06/2023) * RENAL FUNCTION PANEL(Performed 05/06/2023) * GLUCOSE - POINT OF CARE(Performed 05/05/2023) * GLUCOSE - POINT OF CARE(Performed 05/05/2023) * GLUCOSE - POINT OF CARE(Performed 05/05/2023) * VANCOMYCIN LEVEL RANDOM(Performed 05/05/2023) * CBC W/O DIFFERENTIAL(Performed 05/05/2023) * MAGNESIUM BLOOD(Performed 05/05/2023) * RENAL FUNCTION PANEL(Performed 05/05/2023) * GLUCOSE - POINT OF CARE(Performed 05/04/2023) * GLUCOSE - POINT OF CARE(Performed 05/04/2023) * GLUCOSE - POINT OF CARE(Performed 05/04/2023) * VANCOMYCIN LEVEL RANDOM(Performed 05/04/2023) * CBC W/O DIFFERENTIAL(Performed 05/04/2023) * MAGNESIUM BLOOD(Performed 05/04/2023) * RENAL FUNCTION PANEL(Performed 05/04/2023) * GLUCOSE - POINT OF CARE(Performed 05/03/2023) * GLUCOSE - POINT OF CARE(Performed 05/03/2023) * GLUCOSE - POINT OF CARE(Performed 05/03/2023) * GLUCOSE - POINT OF CARE(Performed 05/03/2023) * CBC W/O DIFFERENTIAL(Performed 05/03/2023) * MAGNESIUM BLOOD(Performed 05/03/2023) * RENAL FUNCTION PANEL(Performed 05/03/2023) * GLUCOSE - POINT OF CARE(Performed 05/03/2023) * C DIFFICILE GDH AG + TOXIN A+B(Performed 05/03/2023) * GLUCOSE - POINT OF CARE(Performed 05/02/2023) * GLUCOSE - POINT OF CARE(Performed 05/02/2023) * GLUCOSE - POINT OF CARE(Performed 05/02/2023) * GLUCOSE - POINT OF CARE(Performed 05/02/2023) * VANCOMYCIN LEVEL RANDOM(Performed 05/02/2023) * CBC W/O DIFFERENTIAL(Performed 05/02/2023) * MAGNESIUM BLOOD(Performed 05/02/2023) * RENAL FUNCTION PANEL(Performed 05/02/2023) * GLUCOSE - POINT OF CARE(Performed 05/02/2023) * GLUCOSE - POINT OF CARE(Performed 05/01/2023) * GLUCOSE - POINT OF CARE(Performed 05/01/2023) * GLUCOSE - POINT OF CARE(Performed 05/01/2023) * GLUCOSE - POINT OF CARE(Performed 05/01/2023) * MAGNESIUM BLOOD(Performed 05/01/2023) * RENAL FUNCTION PANEL(Performed 05/01/2023) * VANCOMYCIN LEVEL RANDOM(Performed 05/01/2023) * CBC W/O DIFFERENTIAL(Performed 05/01/2023) * GLUCOSE - POINT OF CARE(Performed 05/01/2023) * GLUCOSE - POINT OF CARE(Performed 05/01/2023) * GLUCOSE - POINT OF CARE(Performed 04/30/2023) * GLUCOSE - POINT OF CARE(Performed 04/30/2023) * GLUCOSE - POINT OF CARE(Performed 04/30/2023) * GLUCOSE - POINT OF CARE(Performed 04/30/2023) * VANCOMYCIN LEVEL RANDOM(Performed 04/30/2023) * CBC W/O DIFFERENTIAL(Performed 04/30/2023) * MAGNESIUM BLOOD(Performed 04/30/2023) * RENAL FUNCTION PANEL(Performed 04/30/2023) * GLUCOSE - POINT OF CARE(Performed 04/30/2023) * GLUCOSE - POINT OF CARE(Performed 04/30/2023) * GLUCOSE - POINT OF CARE(Performed 04/29/2023) * GLUCOSE - POINT OF CARE(Performed 04/29/2023) * GLUCOSE - POINT OF CARE(Performed 04/29/2023) * GLUCOSE - POINT OF CARE(Performed 04/29/2023) * MRI TIBIA FIBULA RIGHT WWO CONT(Performed 04/29/2023) 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, unspecified ulcer stage (HCC) * GLUCOSE - POINT OF CARE(Performed 04/29/2023) * VANCOMYCIN LEVEL RANDOM(Performed 04/29/2023) * CBC W/O DIFFERENTIAL(Performed 04/29/2023) * MAGNESIUM BLOOD(Performed 04/29/2023) * RENAL FUNCTION PANEL(Performed 04/29/2023) * GLUCOSE - POINT OF CARE(Performed 04/29/2023) * GLUCOSE - POINT OF CARE(Performed 04/28/2023) * GLUCOSE - POINT OF CARE(Performed 04/28/2023) * GLUCOSE - POINT OF CARE(Performed 04/28/2023) * VAS ARTERIAL ANKLE ARM INDEX(Performed 04/28/2023) 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, unspecified ulcer stage (HCC), Left foot infection * GLUCOSE - POINT OF CARE(Performed 04/28/2023) * MRI FOOT RIGHT WWO CONTRAST(Performed 04/28/2023) 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, with necrosis of bone (HCC) * MRI ANKLE RIGHT WWO CONTRAST(Performed 04/28/2023) 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, unspecified ulcer stage (HCC) * CBC W/O DIFFERENTIAL(Performed 04/28/2023) * MAGNESIUM BLOOD(Performed 04/28/2023) * RENAL FUNCTION PANEL(Performed 04/28/2023) * VANCOMYCIN LEVEL TROUGH(Performed 04/28/2023) * GLUCOSE - POINT OF CARE(Performed 04/28/2023) * GLUCOSE - POINT OF CARE(Performed 04/27/2023) * VANCOMYCIN LEVEL PEAK(Performed 04/27/2023) * ERYTHROCYTE SEDIMENTATION RATE(Performed 04/27/2023) * CULTURE BLOOD(Performed 04/27/2023) * GLUCOSE - POINT OF CARE(Performed 04/27/2023) * GLUCOSE - POINT OF CARE(Performed 04/27/2023) * RESPIRATORY PANEL WITH SARS-COV-2 BY PCR (STL)(Performed 04/27/2023) * GLUCOSE - POINT OF CARE(Performed 04/27/2023) * HEMOGLOBIN A1C(Performed 04/27/2023) * HIV-1 HIV-2 ANTIBODY + HIV P24 AG PANEL(Performed 04/27/2023) * HEPATITIS C AB SCREEN RFLX NAAT QUANT(Performed 04/27/2023) * VANCOMYCIN LEVEL PEAK(Performed 04/27/2023) * CBC W/O DIFFERENTIAL(Performed 04/27/2023) * MAGNESIUM BLOOD(Performed 04/27/2023) * RENAL FUNCTION PANEL(Performed 04/27/2023) * C-REACTIVE PROTEIN(Performed 04/27/2023) * CK BLOOD(Performed 04/27/2023) * CULTURE BLOOD(Performed 04/27/2023) * GLUCOSE - POINT OF CARE(Performed 04/27/2023) * XR CHEST 1VW PORTABLE(Performed 04/27/2023) Performed for Diabetic ulcer of left heel associated with type 2 diabetes mellitus, unspecified ulcer stage (HCC) * GLUCOSE - POINT OF CARE(Performed 04/27/2023) * GLUCOSE - POINT OF CARE(Performed 04/26/2023) * GLUCOSE - POINT OF CARE(Performed 04/26/2023) * XR FOOT RIGHT 2VW(Performed 04/26/2023) 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, unspecified ulcer stage (HCC) * EKG 12-LEAD(Performed 04/26/2023) Performed for Chronic diastolic congestive heart failure (HCC) * GLUCOSE - POINT OF CARE(Performed 04/26/2023) * XR CHEST 1VW PORTABLE(Performed 04/26/2023) Performed for Diabetic ulcer of left heel associated with type 2 diabetes mellitus, unspecified ulcer stage (HCC) * GLUCOSE - POINT OF CARE(Performed 04/26/2023) * PTT SLH(Performed 04/26/2023) * PT-INR SLH(Performed 04/26/2023) * PHOSPHORUS BLOOD(Performed 04/26/2023) * MAGNESIUM BLOOD(Performed 04/26/2023) * CBC W/O DIFFERENTIAL(Performed 04/26/2023) * LACTIC ACID BLOOD(Performed 04/26/2023) * COMPREHENSIVE METABOLIC PANEL(Performed 04/26/2023) * GLUCOSE - POINT OF CARE(Performed 12/12/2022) * GLUCOSE - POINT OF CARE(Performed 12/12/2022) * CBC W AUTO DIFFERENTIAL(Performed 12/12/2022) * BASIC METABOLIC PANEL (CALCIUM TOTAL)(Performed 12/12/2022) * GLUCOSE - POINT OF CARE(Performed 12/11/2022) * GLUCOSE - POINT OF CARE(Performed 12/11/2022) * GLUCOSE - POINT OF CARE(Performed 12/11/2022) * GLUCOSE - POINT OF CARE(Performed 12/11/2022) * GLUCOSE - POINT OF CARE(Performed 12/11/2022) * GLUCOSE - POINT OF CARE(Performed 12/11/2022) * GLUCOSE - POINT OF CARE(Performed 12/11/2022) * RBC MORPHOLOGY(Performed 12/11/2022) * CBC W AUTO DIFFERENTIAL(Performed 12/11/2022) * BASIC METABOLIC PANEL (CALCIUM TOTAL)(Performed 12/11/2022) * GLUCOSE - POINT OF CARE(Performed 12/10/2022) * GLUCOSE - POINT OF CARE(Performed 12/10/2022) * GLUCOSE - POINT OF CARE(Performed 12/10/2022) * CARDIAC EKG ORDER(Performed 12/10/2022) * GLUCOSE - POINT OF CARE(Performed 12/10/2022) * GLUCOSE - POINT OF CARE(Performed 12/10/2022) * GLUCOSE - POINT OF CARE(Performed 12/10/2022) * GLUCOSE - POINT OF CARE(Performed 12/10/2022) * DIFFERENTIAL MANUAL(Performed 12/10/2022) * CBC W AUTO DIFFERENTIAL(Performed 12/10/2022) * BASIC METABOLIC PANEL (CALCIUM TOTAL)(Performed 12/10/2022) * GLUCOSE - POINT OF CARE(Performed 12/09/2022) * GLUCOSE - POINT OF CARE(Performed 12/09/2022) * GLUCOSE - POINT OF CARE(Performed 12/09/2022) * GLUCOSE - POINT OF CARE(Performed 12/09/2022) * GLUCOSE - POINT OF CARE(Performed 12/09/2022) * DIFFERENTIAL MANUAL(Performed 12/09/2022) * CBC W AUTO DIFFERENTIAL(Performed 12/09/2022) * BASIC METABOLIC PANEL (CALCIUM TOTAL)(Performed 12/09/2022) * GLUCOSE - POINT OF CARE(Performed 12/09/2022) * GLUCOSE - POINT OF CARE(Performed 12/08/2022) * GLUCOSE - POINT OF CARE(Performed 12/08/2022) * VANCOMYCIN LEVEL RANDOM(Performed 12/08/2022) * GLUCOSE - POINT OF CARE(Performed 12/08/2022) * GLUCOSE - POINT OF CARE(Performed 12/08/2022) * GLUCOSE - POINT OF CARE(Performed 12/08/2022) * DIFFERENTIAL MANUAL(Performed 12/08/2022) * CBC W AUTO DIFFERENTIAL(Performed 12/08/2022) * BASIC METABOLIC PANEL (CALCIUM TOTAL)(Performed 12/08/2022) * GLUCOSE - POINT OF CARE(Performed 12/07/2022) * GLUCOSE - POINT OF CARE(Performed 12/07/2022) * GLUCOSE - POINT OF CARE(Performed 12/07/2022) * GLUCOSE - POINT OF CARE(Performed 12/07/2022) * GLUCOSE - POINT OF CARE(Performed 12/07/2022) * GLUCOSE - POINT OF CARE(Performed 12/07/2022) * BASIC METABOLIC PANEL (CALCIUM TOTAL)(Performed 12/07/2022) * VANCOMYCIN LEVEL RANDOM(Performed 12/07/2022) * DIFFERENTIAL MANUAL(Performed 12/07/2022) * CBC W AUTO DIFFERENTIAL(Performed 12/07/2022) * GLUCOSE - POINT OF CARE(Performed 12/07/2022) * GLUCOSE - POINT OF CARE(Performed 12/07/2022) * GLUCOSE - POINT OF CARE(Performed 12/07/2022) * PREPARE RBC LEUKOREDUCED UNIT(Performed 12/07/2022) * GLUCOSE - POINT OF CARE(Performed 12/07/2022) * GLUCOSE - POINT OF CARE(Performed 12/06/2022) * BACTERIAL VAGINOSIS RAPID TEST(Performed 12/06/2022) * GLUCOSE - POINT OF CARE(Performed 12/06/2022) * GLUCOSE - POINT OF CARE(Performed 12/06/2022) * GLUCOSE - POINT OF CARE(Performed 12/06/2022) * GLUCOSE - POINT OF CARE(Performed 12/06/2022) * DIFFERENTIAL MANUAL(Performed 12/06/2022) * CBC W AUTO DIFFERENTIAL(Performed 12/06/2022) * BASIC METABOLIC PANEL (CALCIUM TOTAL)(Performed 12/06/2022) * GLUCOSE - POINT OF CARE(Performed 12/06/2022) * GLUCOSE - POINT OF CARE(Performed 12/05/2022) * CHLAMYDIA + GC AMPLIFIED PROBE(Performed 12/05/2022) * CULTURE BLOOD(Performed 12/05/2022) * CBC W/O DIFFERENTIAL(Performed 12/05/2022) * GLUCOSE - POINT OF CARE(Performed 12/05/2022) * PATHOLOGY TISSUE(Performed 12/05/2022) Performed for Gangrene (HCC) * AMPUTATION ABOVE-KNEE(Performed 12/05/2022) Performed for Gangrene (HCC) * ENDOTRACHEAL TUBE NOTE(Performed 12/05/2022) * HCG URINE QUALITATIVE - POCT (IP) INTERFACED(Performed 12/05/2022) * HCG URINE QUAL POCT NOTIFICATION(Performed 12/05/2022) Performed for Preop examination * GLUCOSE - POINT OF CARE(Performed 12/05/2022) * DIFFERENTIAL MANUAL(Performed 12/05/2022) * VANCOMYCIN LEVEL RANDOM(Performed 12/05/2022) * CBC W AUTO DIFFERENTIAL(Performed 12/05/2022) * BASIC METABOLIC PANEL (CALCIUM TOTAL)(Performed 12/05/2022) * GLUCOSE - POINT OF CARE(Performed 12/05/2022) * GLUCOSE - POINT OF CARE(Performed 12/05/2022) * GLUCOSE - POINT OF CARE(Performed 12/04/2022) * GLUCOSE - POINT OF CARE(Performed 12/04/2022) * GLUCOSE - POINT OF CARE(Performed 12/04/2022) * MAGNESIUM BLOOD(Performed 12/04/2022) * BASIC METABOLIC PANEL (CALCIUM TOTAL)(Performed 12/04/2022) * GLUCOSE - POINT OF CARE(Performed 12/04/2022) * GLUCOSE - POINT OF CARE(Performed 12/04/2022) * PT EVAL AND TREAT(Performed 12/04/2022) * OT EVAL AND TREAT(Performed 12/04/2022) * VANCOMYCIN LEVEL RANDOM(Performed 12/04/2022) * PHOSPHORUS BLOOD(Performed 12/04/2022) * MAGNESIUM BLOOD(Performed 12/04/2022) * CBC W AUTO DIFFERENTIAL(Performed 12/04/2022) * BASIC METABOLIC PANEL (CALCIUM TOTAL)(Performed 12/04/2022) * GLUCOSE - POINT OF CARE(Performed 12/03/2022) * BASIC METABOLIC PANEL (CALCIUM TOTAL)(Performed 12/03/2022) * DIFFERENTIAL MANUAL(Performed 12/03/2022) * CBC W AUTO DIFFERENTIAL(Performed 12/03/2022) * LACTIC ACID BLOOD(Performed 12/03/2022) * VANCOMYCIN LEVEL RANDOM(Performed 12/03/2022) * BLOOD GASES SUZANNE + COOX PANEL(Performed 12/03/2022) * GLUCOSE - POINT OF CARE(Performed 12/03/2022) * BASIC METABOLIC PANEL (CALCIUM TOTAL)(Performed 12/03/2022) * UREA NITROGEN URINE RANDOM(Performed 12/03/2022) * URINALYSIS REFLEX TO MICROSCOPIC NO CULTURE(Performed 12/03/2022) * CREATININE URINE RANDOM(Performed 12/03/2022) * LYTES (NA K CL) URINE RANDOM PANEL(Performed 12/03/2022) * GLUCOSE - POINT OF CARE(Performed 12/03/2022) * HEMOGLOBIN(Performed 12/03/2022) * GLUCOSE - POINT OF CARE(Performed 12/03/2022) * PREPARE RBC LEUKOREDUCED UNIT(Performed 12/03/2022) * BLOOD TYPE VERIFICATION(Performed 12/03/2022) * EKG 12-LEAD(Performed 12/03/2022) Performed for Hypoxia * TYPE + SCREEN PANEL(Performed 12/03/2022) * DIFFERENTIAL MANUAL(Performed 12/03/2022) * PHOSPHORUS BLOOD(Performed 12/03/2022) * MAGNESIUM BLOOD(Performed 12/03/2022) * BASIC METABOLIC PANEL (CALCIUM TOTAL)(Performed 12/03/2022) * CBC W AUTO DIFFERENTIAL(Performed 12/03/2022) * GLUCOSE - POINT OF CARE(Performed 12/03/2022) * GLUCOSE - POINT OF CARE(Performed 12/03/2022) * CULTURE FLUID+GRAM STAIN(Performed 12/03/2022) * CULTURE ANAEROBE(Performed 12/03/2022) * PATHOLOGY TISSUE(Performed 12/03/2022) Performed for Gangrene (HCC) * AMPUTATION BELOW-KNEE(Performed 12/02/2022) Performed for Gangrene (HCC) * ENDOTRACHEAL TUBE NOTE(Performed 12/02/2022) * GLUCOSE - POINT OF CARE(Performed 12/02/2022) * C-REACTIVE PROTEIN(Performed 12/02/2022) * LIPID PROFILE(Performed 12/02/2022) * HEMOGLOBIN A1C(Performed 12/02/2022) * CULTURE BLOOD(Performed 12/02/2022) * LACTIC ACID BLOOD REFLEX TO REPEAT(Performed 12/02/2022) * CULTURE BLOOD(Performed 12/02/2022) * XR FOOT LEFT 3VW OR MORE(Performed 12/02/2022) Performed for Swelling of left foot * ERYTHROCYTE SEDIMENTATION RATE(Performed 12/02/2022) * DIFFERENTIAL MANUAL(Performed 12/02/2022) * HCG BETA BLOOD QUANTITATIVE(Performed 12/02/2022) * B-TYPE NATRIURETIC PEPTIDE(Performed 12/02/2022) * TROPONIN I(Performed 12/02/2022) * COMPREHENSIVE METABOLIC PANEL(Performed 12/02/2022) * CBC W AUTO DIFFERENTIAL(Performed 12/02/2022) * XR CHEST 2VW(Performed 12/02/2022) Performed for Hypoxia * GLUCOSE - POINT OF CARE(Performed 08/25/2022) * GLUCOSE - POINT OF CARE(Performed 08/25/2022) * GLUCOSE - POINT OF CARE(Performed 08/25/2022) * CT CHEST WO CONTRAST(Performed 08/25/2022) Performed for CHF (congestive heart failure) (HCC) * RENAL FUNCTION PANEL(Performed 08/25/2022) * GLUCOSE - POINT OF CARE(Performed 08/24/2022) * GLUCOSE - POINT OF CARE(Performed 08/24/2022) * RENAL FUNCTION PANEL(Performed 08/24/2022) * GLUCOSE - POINT OF CARE(Performed 08/24/2022) * GLUCOSE - POINT OF CARE(Performed 08/24/2022) * MAGNESIUM BLOOD(Performed 08/24/2022) * RENAL FUNCTION PANEL(Performed 08/24/2022) * GLUCOSE - POINT OF CARE(Performed 08/23/2022) * GLUCOSE - POINT OF CARE(Performed 08/23/2022) * GLUCOSE - POINT OF CARE(Performed 08/23/2022) * GLUCOSE - POINT OF CARE(Performed 08/23/2022) * MAGNESIUM BLOOD(Performed 08/23/2022) * RENAL FUNCTION PANEL(Performed 08/23/2022) * GLUCOSE - POINT OF CARE(Performed 08/22/2022) * GLUCOSE - POINT OF CARE(Performed 08/22/2022) * XR CHEST 1VW PORTABLE(Performed 08/22/2022) Performed for CHF (congestive heart failure) ([facility]) * GLUCOSE - POINT OF CARE(Performed 08/22/2022) * GLUCOSE - POINT OF CARE(Performed 08/22/2022) * HEMOGLOBIN A1C(Performed 08/22/2022) * CBC W AUTO DIFFERENTIAL(Performed 08/22/2022) * MAGNESIUM BLOOD(Performed 08/22/2022) * RENAL FUNCTION PANEL(Performed 08/22/2022) * GLUCOSE - POINT OF CARE(Performed 08/21/2022) * GLUCOSE - POINT OF CARE(Performed 08/21/2022) * ECHOCARDIOGRAM 2D WITH DOPPLER(Performed 08/21/2022) Performed for Intentional overdose, initial encounter ([facility]) * GLUCOSE - POINT OF CARE(Performed 08/21/2022) * EKG 12-LEAD(Performed 08/21/2022) Performed for Intentional overdose, initial encounter ([facility]) * XR CHEST 1VW PORTABLE(Performed 08/21/2022) Performed for Intentional overdose, initial encounter ([facility]) * OT EVAL AND TREAT(Performed 08/21/2022) * GLUCOSE - POINT OF CARE(Performed 08/21/2022) * LACTIC ACID BLOOD(Performed 08/21/2022) * MAGNESIUM BLOOD(Performed 08/21/2022) * COMPREHENSIVE METABOLIC PANEL(Performed 08/21/2022) * CBC W AUTO DIFFERENTIAL(Performed 08/21/2022) * PROLACTIN(Performed 04/24/2010) Performed for DM w/o Complication Type II (HCC) * TSH(Performed 04/24/2010) Performed for DM w/o Complication Type II (HCC) * HCG BLOOD QUALITATIVE(Performed 04/24/2010) Performed for DM w/o Complication Type II (HCC) * HEMOGLOBIN A1C - POINT OF CARE (IP)(Performed 04/24/2010) Performed for DM w/o Complication Type II (HCC) * LIPID PROFILE(Performed 04/24/2010) Performed for DM w/o Complication Type II (HCC) * CREATININE BLOOD(Performed 04/24/2010) Performed for DM w/o Complication Type II (HCC) Results * C-REACTIVE PROTEIN (10/11/2024 4:43 PM PRESSER MACHINE) Only the most recent of11 resultswithin the time period is included. C-Reactive Protein 0.5 <=0.5 mg/dL 10/11/2024 5:45 PM PRESSER MACHINE [facility] Blood BLOOD SPECIMEN / Unknown Lab Venipuncture / Unknown 10/11/2024 4:43 PM PRESSER MACHINE 10/11/2024 5:02 PM PRESSER MACHINE Kash Ha MD LAB - CHEMISTRY ORDE RABLES [facility] [address] [place] [address], [place] [phone] * (ABNORMAL) ERYTHROCYTE SEDIMENTATION RATE (10/11/2024 4:43 PM PRESSER MACHINE) Only the most recent of10 resultswithin the time period is included. Pathologist [facility] [place] Erythrocyte Sedimentation Rate Westergren 87(H) 0 - 20 MM/HR 10/11/2024 5:27 PM [facility] Blood BLOOD SPECIMEN / Unknown Lab Venipuncture / Unknown 10/11/2024 4:43 PM PRESSER MACHINE 10/11/2024 5:02 PM PRESSER MACHINE Kash Ha MD LAB - HEMATOLOGY ORD ERABLES [facility] [address] [place] [address], [place] [phone] * (ABNORMAL) CBC WITH DIFFERENTIAL (10/11/2024 4:43 PM PRESSER MACHINE) Only the most recent of53 resultswithin the time period is included. WBC 9.0 4.0 - 10.7 x10E9/L 10/11/2024 5:17 PM [facility] RBC Count 4.49 3.90 - 5.20 x10E12/L 10/11/2024 5:17 PM [facility] Hemoglobin 13.6 11.9 - 15.8 g/dL 10/11/2024 5:17 PM [facility] Hematocrit 45.0 34.8 - 46.1 % 10/11/2024 5:17 PM [facility] MCV 100.2(H) 80.0 - 98.0 fL 10/11/2024 5:17 PM [facility] MCH 30.3 26.7 - 33.6 pg 10/11/2024 5:17 PM [facility] MCHC 30.2(L) 31.7 - 36.3 g/dL 10/11/2024 5:17 PM [facility] RDW-CV 15.4(H) 11.3 - 14.8 % 10/11/2024 5:17 PM [facility] Platelet Count 398 150 - 420 x10E9/L 10/11/2024 5:17 PM [facility] MPV 9.2 7.8 - 11.4 fL 10/11/2024 5:17 PM [facility] Neutrophil % 65.3 41.0 - 74.0 % 10/11/2024 5:17 PM [facility] Lymphocyte % 19.8 17.0 - 47.0 % 10/11/2024 5:17 PM [facility] Monocyte % 6.8 3.0 - 11.0 % 10/11/2024 5:17 PM [facility] Eosinophil % 6.8 0.0 - 7.0 % 10/11/2024 5:17 PM [facility] Basophil % 0.4 0.0 - 1.6 % 10/11/2024 5:17 PM [facility] Immature Granulocytes % 0.9 0.0 - 1.0 % 10/11/2024 5:17 PM [facility] Neutrophil Absolute 5.85 1.60 - 7.50 x10E9/L 10/11/2024 5:17 PM [facility] Lymphocyte Absolute 1.77 1.00 - 4.40 x10E9/L 10/11/2024 5:17 PM [facility] Monocyte Absolute 0.61 0.15 - 1.00 x10E9/L 10/11/2024 5:17 PM [facility] Eosinophil Absolute 0.61(H) 0.00 - 0.60 x10E9/L 10/11/2024 5:17 PM [facility] Basophil Absolute 0.04 0.00 - 0.13 x10E9/L 10/11/2024 5:17 PM [facility] Blood BLOOD SPECIMEN / Unknown Lab Venipuncture / Unknown 10/11/2024 4:43 PM PRESSER MACHINE 10/11/2024 5:02 PM PRESSER MACHINE Kash Ha MD LAB - HEMATOLOGY ORD ERABLES [facility] [address] [place] [address], [facility] [phone] * (ABNORMAL) COMPREHENSIVE METABOLIC PANEL (10/11/2024 4:43 PM PRESSER MACHINE) Only the most recent of16 resultswithin the time period is included. BUN 18 7 - 26 mg/dL 10/11/2024 5:45 PM [facility] Creatinine 4.01(H) 0.56 - 0.96 mg/dL 10/11/2024 5:45 PM [facility] Sodium 135(L) 136 - 145 mmol/L 10/11/2024 5:45 PM [facility] Potassium 5.8(H) 3.5 - 4.5 mmol/L 10/11/2024 5:45 PM [facility] Chloride 107 98 - 107 mmol/L 10/11/2024 5:45 PM [facility] CO2 21(L) 22 - 29 mmol/L 10/11/2024 5:45 PM [facility] Glucose 161(H) 70 - 99 mg/dL 10/11/2024 5:45 PM [facility] Calcium 8.7 8.4 - 10.2 mg/dL 10/11/2024 5:45 PM [facility] Protein Total 8.3 6.0 - 8.3 g/dL 10/11/2024 5:45 PM [facility] Albumin 3.1(L) 3.4 - 5.0 g/dL 10/11/2024 5:45 PM [facility] Bilirubin Total 0.3 0.2 - 1.2 mg/dL 10/11/2024 5:45 PM [facility] Alkaline Phosphatase 207(H) 40 - 150 U/L 10/11/2024 5:45 PM [facility] ALT 18 5 - 55 U/L 10/11/2024 5:45 PM [facility] AST 14 5 - 34 U/L 10/11/2024 5:45 PM [facility] Anion Gap 7 6 - 16 10/11/2024 5:45 PM [facility] BUN/Creatinine Ratio 4(L) 7 - 23 10/11/2024 5:45 PM [facility] Osmolality Calculated 285 275 - 295 mOsm/kg 10/11/2024 5:45 PM [facility] Albumin/Globulin Ratio 0.6(L) 1.1 - 2.3 10/11/2024 5:45 PM [facility] eGFR by CKD-EPI 15(L) >=90 mL/min/1.7 3 m2 10/11/2024 5:45 PM [facility] Blood BLOOD SPECIMEN / Unknown Lab Venipuncture / Unknown 10/11/2024 4:43 PM PRESSER MACHINE 10/11/2024 5:02 PM PRESSER MACHINE Kash Ha MD LAB - CHEMISTRY DIVINA OLVERA [facility] Organization Address City/State/ZIP Co de Phone Number [facility] [address] [place] [phone], [facility] [phone] * LAB RESULTS ORDER (09/27/2024) 09/27/2024 Narrative 09/27/2024 Ordered by an unspecified provider. Scanned Document LAB - THERAPEUTIC DR UG MONITORING ORDERABLES * (ABNORMAL) GLUCOSE - POINT OF CARE (09/01/2024 1:19 PM CDT) Only the most recent of306 resultswithin the time period is included. Glucose WB/POC 163(H) 70 - 99 mg/dL 09/01/2024 1:24 PM CDT [facility] Specimen Type Cap Fingerstick 2023 1:24 PM CDT [facility] Blood BLOOD SPECIMEN / Unknown 09/01/2024 1:19 PM CDT 09/01/2024 1:24 PM CDT José Damian MD LAB - POINT OF CARE ORDERABLES Performing Organization Address City/[facility]/ZIP Co de Phone Number [facility] [address] [place] [address], [facility] [phone] * VANCOMYCIN LEVEL RANDOM (09/01/2024 6:38 AM CDT) Only the most recent of28 resultswithin the time period is included. Pathologist [facility] [place] Vancomycin Random 19.9 Therapeutic Ranges not established for random specimens ug/mL 09/01/2024 8:06 AM CDT [facility] Blood BLOOD SPECIMEN / Unknown Lab Venipuncture / Unknown 09/01/2024 6:38 AM CDT 09/01/2024 7:56 AM CDT [facility] - 09/01/2024 8:06 AM CDT See institution protocol. Harpreet Katz DO LAB - CHEMISTRY DIVINA OLVERA Performing Organization Address [facility]/ZIP Co de Phone Number [facility] [address] [place] [phone], [facility] [phone] * (ABNORMAL) RENAL FUNCTION PANEL (08/31/2024 7:18 PM CDT) Only the most recent of46 resultswithin the time period is included. Pathologist [facility] [place] BUN 31(H) 7 - 26 mg/dL 08/31/2024 8:37 PM [facility] Creatinine 5.54(H) 0.56 - 0.96 mg/dL 08/31/2024 8:37 PM [facility] Sodium 138 136 - 145 mmol/L 08/31/2024 8:37 PM [facility] Potassium 5.2(H) 3.5 - 4.5 mmol/L 08/31/2024 8:37 PM [facility] Chloride 103 98 - 107 mmol/L 08/31/2024 8:37 PM [facility] CO2 20(L) 22 - 29 mmol/L 08/31/2024 8:37 PM [facility] Glucose 179(H) 70 - 99 mg/dL 08/31/2024 8:37 PM CDT [facility] Albumin 2.3(L) 3.4 - 5.0 g/dL 08/31/2024 8:37 PM CDT [facility] Calcium 8.1(L) 8.4 - 10.2 mg/dL 08/31/2024 8:37 PM CDT [facility] Phosphorus 5.3(H) 2.9 - 5.1 mg/dL 08/31/2024 8:37 PM CDT [facility] Anion Gap 15 6 - 16 08/31/2024 8:37 PM CDT [facility] BUN/Creatinine Ratio 6(L) 7 - 23 08/31/2024 8:37 PM CDT [facility] Osmolality Calculated 297(H) 275 - 295 mOsm/kg 08/31/2024 8:37 PM T [facility] eGFR by CKD-EPI 10(L) >=90 mL/min/1.7 3 m2 08/31/2024 8:37 PM CDT [facility] Blood BLOOD SPECIMEN / Unknown Lab Venipuncture / Unknown 08/31/2024 7:18 PM CDT 08/31/2024 8:23 PM CDT Noe Rabago MD LAB - CHEMISTRY ORDMichaela OLVERA [address] [address], [facility] [phone] * MAGNESIUM BLOOD (08/31/2024 7:18 PM CDT) Only the most recent of50 resultswithin the time period is included. Magnesium 2.1 1.6 - 2.6 mg/dL 08/31/2024 8:37 PM CDT [facility] Blood BLOOD SPECIMEN / Unknown Lab Venipuncture / Unknown 08/31/2024 7:18 PM CDT 08/31/2024 8:23 PM CDT Noe Rabago MD LAB - CHEMISTRY DIVINA OLVERA [address] [address], [facility] [phone] * HCG BETA BLOOD QUANTITATIVE (08/31/2024 6:22 AM CDT) Only the most recent of5 resultswithin the time period is included. Beta-hCG Total Quantitative <3 mIU/mL 08/31/2024 7:30 AM CDT [facility] Comment: HCG Numeric Result Interpretation: ? Non- [...] Veronica MD LAB - CHEMIS TRY ORDERABLES [address] [address], [facility] [phone] * CT US Guided Needle Placement (08/30/2024 3:23 PM CDT) Anatomical Region Laterality Modality Chest, Abdomen Computed Tomogra phy 08/30/2024 3:42 PM CDT Impressions 08/31/2024 9:09 AM CDT Impression: Successful ultrasound-guided placement of a 10 Danish pigtail drainage catheter in right intramuscular abscess, [...] was provided with 1% Lidocaine. ??A 5 Danish coaxial needle system was advanced in stages under real time ultrasound guidance. Upon aspiration, the outer-sheath was advanced within the abscess. An attempt was made for aspiration with a 5 Danish catheter without success. Shortly after, a 0.035 wire was advanced through the sheath and following a series of exchanges, an 10 Danish pigtail drainage catheter was advanced within the [...] was provided with 1% Lidocaine. A 5 Danish coaxialneedle system was advanced in stages under real time ultrasound guidance. Upon aspiration, the outer-sheath was advanced within the abscess. An attempt was made for aspiration with a 5 Danish catheter without success.Shortly after, a 0.035 wire was advanced through the sheath and following aseries of exchanges, an 10 Danish pigtail drainage catheter was advanced within the [...] the procedure well and was transferred to theholding area in stable condition. There were no [...] CULTURE FLUID+GRAM STAIN (08/30/2024 3:13 PM CDT) Only the most recent of5 resultswithin the time period is included. Culture No growth CHARLES 09/04/2024 12:22 PM CDT [facility] MICROBIOLOGY Gram Stain Light Polymorphonuclear cells 09/04/2024 12:22 PM CDT [facility] MICROBIOLOGY Gram Stain No organisms seen 024 12:22 PM CDT [facility] MICROBIOLOGY Other SYNOVIAL FLUID / Unknown Collection / Unknown 08/30/2024 3:13 PM CDT 08/30/2024 3:37 PM CDT Penny Morris MD LAB - MICROBIOLOGY O RDERABLES Performing Organization Address City/[facility]/ZIP Co de Phone Number [facility] MICROBIOLOGY [address] [place] [address], [facility] [phone] * CULTURE ANAEROBE (08/30/2024 3:13 PM CDT) Only the most recent of7 resultswithin the time period is included. Culture No anaerobic organisms isolated CHARLES 09/05/2024 3:01 PM PRESSER MACHINE [facility] MICROBIOLOGY Microbiology BODY FLUID SPECIMEN / Unknown Collection / Unknown 08/30/2024 3:13 PM CDT 08/30/2024 3:37 PM CDT Noe Rabago MD LAB - MICROBIOLOGY O RDERABLES Performing Organization Address [facility] Co de Phone Number [facility] MICROBIOLOGY [address] [place] [address], [facility] [phone] * HCG URINE QUAL POCT NOTIFICATION (08/30/2024 1:58 PM CDT) Only the most recent of2 resultswithin the time period is included. Comment Notification Label Only - See Separate Report 08/30/2024 3:00 PM CDT [facility] Urine URINE / Unknown 08/30/2024 1 :58 PM CDT 08/30/2024 1:58 PM CDT Sorin Veronica MD LAB - URINAL YSIS ORDERABLES Performing Organization Address City/[facility]/ZIP Co de Phone Number [facility] [address] [place] [address], [place] [phone] * MRI Shoulder Right Wwo Cont (08/29/2024 [...] Dictated by Kranthi Alvarez MD, (vice president marketing & development). I, Xander De Guzman MD have personally reviewed and interpreted this examination/study. > Interpreting Provider: Xander De Guzman MD on 08/30/2024 9:01 AM Narrative 08/30/2024 9:01 AM CDT PROCEDURE: ??MRI SHOULDER RIGHT WWO CONT, DATE/TIME OF EXAM: ??08/29/2024 11:11 AM, LOCATION ??[facility] INDICATION: M86.9: Osteomyelitis of right shoulder, [...] DATE/TIME OF EXAM: 08/29/2024 11:11 AM, LOCATION [facility] INDICATION: M86.9: Osteomyelitis of right shoulder, [...] Dictated by Kranthi Alvarez MD, (vice president marketing & development). I, Xander De Guzman MD have personally reviewed and interpreted this examination/study. > Interpreting Provider: Xander De Guzman MD on 08/30/2024 9:01 AM Harpreet Sterling MR ORDERABLES * (ABNORMAL) HEMOGLOBIN A1C (08/28/2024 8:29 PM CDT) Only the most recent of6 resultswithin the time period is included. Hemoglobin A1c 7.4(H) <=5.6 % 08/29/2024 8:36 AM CDT [facility] Estimated Average Glucose 166 mg/dL 08/29/2024 8:36 AM [facility] Comment: HbA1c Interpretation: Normal : < 5.7% Pre-diabetes: 5.7-6.4% Diabetes: Equal to or greater than 6.5% Test results diagnostic of diabetes should be repeated for confirmation. Treatment target values recommended by ADA and other clinical organizations should be used to evaluate metabolic control in patients. Reference: [place] [employer], Standards of Care in Diabetes -2020 In patients 70 years and older consider HbA1c target range of 7.0-7.5% (Reference: Anthony Dillard et al. VIVIANDA. 2012) The Sebia assay for the measurement of HbA1c is a National Glycohemoglobin Standardization Program (NGSP) certified method. Blood BLOOD SPECIMEN / Unknown Lab Venipuncture / Unknown 08/28/2024 8:29 PM CDT 08/28/2024 9:24 PM CDT Noe Rabago MD LAB - CHEMISTRY DIVINA OLVERA [facility] Organization Address City/State/ZIP Co de Phone Number [facility] [address] [place] [phone], [facility] [phone] * MRI Cervical Spine Wwo Cont (08/27/2024 2:53 AM CDT) Only the most recent of2 resultswithin the time period is included. Anatomical Region Laterality Modality Spine Magnetic Resonan [...] This study was dictated by vice president marketing & development Anam Pearson MD and reviewed and edited [...] This study was dictated by vice president marketing & development nAam Pearson MD and reviewed and edited by the attending. eMry Kim MD have personally reviewed and interpreted [...] This study was dictated by vice president marketing & development Anam Pearson MD and reviewed and edited [...] This study was dictated by vice president marketing & development Anam Pearson MD and reviewed and edited [...] This study was dictated by vice president marketing & development Anam Pearson MD and reviewed and edited [...] This study was dictated by vice president marketing & development Anam Pearson MD and reviewed and edited by the attending. I, Mery Esqueda MD have personally reviewed and interpreted this examination/study. > Interpreting Provider: Mery Esqueda MD on 08/27/2024 12:10 PM Penny Morris MD MR ORDERABLES * CRYSTAL INDENTIFICATION SYNOVIAL FLUID (08/26/2024 9:15 PM CDT) Only the most recent of4 resultswithin the time period is included. Crystal Exam Fluid To be performed by Pathology. See Path Review. 08/26/2024 11:48 PM CDT [facility] Fluid SYNOVIAL FLUID / Unknown 08/26/2024 9:15 PM CDT 08/26/2024 10:31 PM CDT Penny Morris MD LAB - BODY FLUID ORD ERABLES [facility] [address] [address], [facility] [phone] * PATHOLOGY SMEAR BODY FLUID (08/26/2024 9:15 PM CDT) Only the most recent of6 resultswithin the time period is included. Path Review Fluid Confirmed 08/30/2024 12:36 PM CDT [facility] Fluid SYNOVIAL FLUID / Unknown 08/26/2024 9:15 PM CDT 08/26/2024 10:31 PM CDT Narrative [facility] - 08/30/2024 12:36 PM CDT Synovial fluid cytospin (1:10): - ??Red blood cells present, consistent with peripheral blood contamination - ??No crystals seen under polarized light-microscopy Penny Morris MD LAB - PATHOLOGY/CYTO LOGY ORDERABLES [address] [address], [facility] [phone] * DIFFERENTIAL MANUAL FLUID (08/26/2024 9:15 PM CDT) Only the most recent of4 resultswithin the time period is included. Fluid Source Synovial 08/26/2024 10:35 PM CDT [facility] Body Fluid Total Cell Count 100 x10E6/L 08/26/2024 10:35 PM CDT [facility] Neutrophils Fluid Percent 83 % 08/26/2024 10:35 PM CDT [facility] Lymphocytes Fluid Percent 5 % 08/26/2024 10:35 PM CDT [facility] Eosinophils Fluid Percent 12 % 08/26/2024 10:35 PM CDT [facility] Fluid SYNOVIAL FLUID / Unknown Collection / Unknown 08/26/2024 9:15 PM CDT 08/26/2024 9:16 PM CDT Narrative [facility] - 08/26/2024 10:35 PM CDT No reference ranges established for body fluid differential cell counts. ??The test results must be integrated into the clinical context for interpretation. Penny Morris MD LAB - BODY FLUID ORD ERABLES Performing Organization Address [facility]/ZIP Co de Phone Number [facility] [address] [place] [address], [facility] [phone] * (ABNORMAL) CELL COUNT W DIFFERENTIAL FLUID (08/26/2024 9:15 PM CDT) Only the most recent of4 resultswithin the time period is included. Fluid Source Synovial 08/26/2024 10:35 PM CDT [facility] Fluid Appearance BLOODY 08/26/2024 10:35 PM CDT [facility] Fluid Color RED 08/26/2024 10:35 PM CDT [facility] Total Nucleated Cells Fluid 3,700(H) <=200 x10E6/L 08/26/2024 10:35 PM CDT [facility] Comment:Clots present. Count may be inaccurate. RBC Count Fluid 1,117,000 Reference Range Not Established x10E6/L 08/26/2024 10:35 PM CDT [facility] Fluid SYNOVIAL FLUID / Unknown Collection / Unknown 08/26/2024 9:15 PM CDT 08/26/2024 9:16 PM CDT Narrative [facility] - 08/26/2024 10:35 PM CDT No reference ranges established for body fluid cell counts. Any reference ranges provided are derived from published literature. The test results must be integrated into the clinical context for interpretation. Penny Morris MD LAB - BODY FLUID ORD KAUSHAL Performing Organization Address [facility]/ZIP Co de Phone Number [facility] [address] [place] [address], [facility] [phone] * XR Shoulder Right 2Vw or More (08/26/2024 8:11 PM CDT) Only the most recent of3 resultswithin the time period is included. Anatomical Region Laterality Modality Upper Extremity Digital Radiogra phy 08/26/2024 8:45 PM CDT Narrative 08/27/2024 12:36 AM CDT PROCEDURE: ??XR SHOULDER RIGHT 2VW OR MORE, DATE/TIME OF EXAM: ??08/26/2024 8:12 PM, LOCATION ??[facility] INDICATION: M79.89: Swelling of right upper [...] dictated by Graeme Stern DO (vice president marketing & development). Arthur Kim MD have personally reviewed and interpreted this examination/study. > Interpreting Provider: Arthur Avery MD on 08/27/2024 12:36 AM Procedure Note Arthur Avery MD - 08/27/2024 PROCEDURE: XR SHOULDER RIGHT 2VW OR MORE, DATE/TIME OF EXAM:08/26/2024 8:12 PM, LOCATION [facility] INDICATION: M79.89: Swelling of right upper [...] dictated by Graeme Stern DO (vice president marketing & development). Arthur Kim MD have personally reviewed and interpreted this examination/study. > Interpreting Provider: Arthur Avery MD on 08/27/2024 12:36 AM Penny Morris MD DIAGNOSTIC IMAGING O RDERABLES * SARS-COV-2 (COVID-19)+INFLU A+B PCR RAPID (08/25/2024 10:05 AM CDT) COVID-19 PCR Not detected Not detected 08/25/20 10:55 AM CDT [facility] Influenza A Rapid RASHAWN Not Detected Not Detected 08/25/2024 10:55 AM CDT [facility] Influenza B RASHAWN Rapid Not Detected Not Detected 08/25/2024 10:55 AM CDT [facility] Microbiology SPECIMEN FROM NASOPHARYNGEAL STRUCTURE / Unknown Collection / Unknown 08/25/2024 10:05 AM CDT 08/25/2024 10:18 AM CDT Narrative [facility] - 08/25/2024 10:55 AM CDT Influenza assay [...] acid amplification assay performance was validated by [facility]. This test has been authorized by [...] Morris MD LAB - MICROBIOLOGY O RDERABLES [facility] [address] [place] [address], [facility] [phone] * CULTURE BLOOD (08/25/2024 10:05 AM CDT) Only the most recent of31 resultswithin the time period is included. Culture No growth day 5 CHARLES 08/30/2024 2:31 PM CDT [facility] MICROBIOLOGY Blood PERIPHERAL BLOOD / Unknown Venipuncture / Unknown 08/25/2024 10:05 AM CDT 08/25/2024 10:18 AM CDT Penny Morris MD LAB - MICROBIOLOGY O RDERABLES [facility] MICROBIOLOGY [address] [place] [address], [facility] [phone] * LIPASE BLOOD (08/25/2024 9:50 AM CDT) Pathologist [facility] [place] Lipase 57 8 - 78 U/L 08/25/2024 10:58 AM CDT [facility] Blood BLOOD SPECIMEN / Unknown Venipuncture / Unknown 08/25/2024 9:50 AM CDT 08/25/2024 10:20 AM CDT Narrative [facility] - 08/25/2024 10:58 AM CDT Lipase results from the Garcia Alinity analyzer may not be comparable with other methodologies. Penny Morris MD LAB - CHEMISTRY DIVINA OLVERA Performing Organization Address City/[facility]/ZIP Co de Phone Number [facility] [address] [place] [address], [place] [phone] * PTT [facility] (08/07/2024 5:47 AM CDT) Only the most recent of19 resultswithin the time period is included. APTT 35.0 23.0 - 38.4 Seconds 08/07/2024 7:13 AM CDT [facility] Comment:Suggested therapeuti c range for full dose I.V. unfractionated heparin therapy for venous thromboembolism is 71 to 109 seconds. Blood BLOOD SPECIMEN / Unknown Lab Venipuncture / Unknown 08/07/2024 5:47 AM CDT 08/07/2024 6:37 AM CDT Geronimo Burleson MD LAB - COAGULAT ION ORDERABLES [facility] [address] [place] [address], [facility] [phone] * (ABNORMAL) PHOSPHORUS BLOOD (08/07/2024 5:47 AM CDT) Only the most recent of19 resultswithin the time period is included. Phosphorus 5.9(H) 2.9 - 5.1 mg/dL 08/07/2024 7:19 AM CDT [facility] Blood BLOOD SPECIMEN / Unknown Lab Venipuncture / Unknown 08/07/2024 5:47 AM CDT 08/07/2024 6:37 AM CDT Rob Cruz MD LAB - CHEMISTRY ORDE WADE Performing Organization Address City/[facility]/ZIP Co de Phone Number [facility] [address] [place] [address], [facility] [phone] * IR Central Line Insert Tunnel (08/06/2024 12:28 PM CDT) Only the most recent of2 resultswithin the time period is included. Anatomical Region Laterality Modality Chest, Upper Extremity X-Ray Ang iography 08/06/2024 12:1 5 PM CDT Addenda Addendum by Artie Harmon MD on 08/09/2024 2:23 PM CDT Addendum to moderate sedation times: Moderate sedation on this adult patient was ordered by me, administered intravenously in my presence, and monitored by the procedure nurse as an independent trained observer who was present throughout the procedure. The following parameters were monitored: oxygen saturation, heart rate, blood pressure, and response to care. Intra-service sedation start time was 1150 and end time was 1212 during which I was present. Total physician intra-service sedation time was 22 minutes. For details on pre-moderate sedation and post-moderate sedation patient evaluation, please review the evaluation forms in [facility]. For details on monitored clinical parameters during the intra-service sedation time, please review the procedure nurse documentation in [facility]. > Interpreting Provider: Ingrid Harmon MD on 08/09/2024 2:21 PM Impressions 08/06/2024 12:20 PM CDT Impression: Successful placement of left internal jugular tunneled dialysis catheter. I was present for the entire procedure. > Interpreting Provider: Ingrid Harmon MD on 08/06/2024 12:20 PM Narrative 08/06/2024 12:20 PM CDT PROCEDURE: ??IR CENTRAL LINE INSERT TUNNEL DATE/TIME OF EXAM: ??08/06/2024 9:27 AM CLINICAL INFORMATION: None relevant/not provided if blank. Indication: R78.81: MRSA bacteremia B95.62: MRSA bacteremia N18.6: ESRD (end stage renal disease) ([facility]) Stem Roller Operator: Candy Harmon M.D. Attending: Candy Harmon M.D. [employer] Solution Architect: Shaun Gomez M.D. Procedures performed: 1. Insertion of tunneled central venous catheter 2. Fluoroscopic guidance for central venous catheter procedure 3. Ultrasound guidance for vascular access with permanent recording. Indication: This patient was referred for placement of tunneled dialysis catheter. Diagnosis: Renal failure Following informed consent he was taken to the angiography suite and placed on the fluoroscopy table. The skin of the left neck and chest was prepared with chlorhexidine and sterile drapes were applied. Under real time ultrasound guidance, the left internal jugular vein was accessed with a micropuncture needle, a chopra scale image was recorded and a microfilament wire was advanced to the central veins under fluoroscopic guidance. ??A 5 Danish trocar was placed and a 0.035 guidewire was then advanced through the trocar and was manipulated into the IVC. ??An exit site was chosen on the chest wall and anesthetized with lidocaine. ??Using a metal tunneling device, a 28 cm Duraflow 2 dialysis access catheter was brought through a subcutaneous tunnel to the venotomy incision and prepared for insertion. Serial dilators were utilized to create a track to the jugular vein sufficient to accommodate a peel-away sheath which was inserted over the guidewire and the inner stylet was removed. ??The catheter was inserted through the sheath which was then removed. ??The catheter was adjusted for length under fluoroscopy such that the tip was at the junction of the SVC and RA. ??Both lumens flushed easily and were locked with heparin. ??The catheter was sutured in place with 2-0 nylon and a CHG dressing was placed. The venotomy incision was closed with a 2-0 nylon suture. Moderate sedation on this adult patient was ordered by me, administered intravenously in my presence, and monitored by the procedure nurse as an independent trained observer who was present throughout the procedure. The following parameters were monitored: oxygen saturation, heart rate, blood pressure, and response to care. Intra-service sedation start time was 1150 and end time was 1212 during which I was present. Total physician intra-service sedation time was 32 minutes. For details on pre-moderate sedation and post-moderate sedation patient evaluation, please review the evaluation forms in [facility]. For details on monitored clinical parameters during the intra-service sedation time, please review the procedure nurse documentation in [facility]. Procedure Note Artie Harmon MD - 08/06/2024 PROCEDURE: IR CENTRAL LINE INSERT TUNNEL DATE/TIME OF EXAM: 08/06/2024 9:27 AM CLINICAL INFORMATION: None relevant/not provided if blank. Indication: R78.81: MRSA bacteremia B95.62: MRSA bacteremia N18.6: ESRD (end stage renal disease) ([facility]) Stem Roller Operator: Candy Harmon M.D. Attending: Candy Harmon M.D. [employer] Solution Architect: Shaun Gomez M.D. Procedures performed: 1. Insertion of tunneled central venous catheter 2. Fluoroscopic guidance for central venous catheter procedure 3. Ultrasound guidance for vascular access with permanent recording. Indication: This patient was referred for placement of tunneled dialysis catheter. Diagnosis: Renal failure Following informed consent he was taken to the angiography suite andplaced on the fluoroscopy table. The skin of the left neck and chest wasprepared with chlorhexidine and sterile drapes were applied. Under real time ultrasound guidance, the left internal jugular vein was accessed with a micropuncture needle, a chopra scale image was recorded and amicrofilament wire was advanced to the central veins under fluoroscopic guidance. A 5 Danish trocar was placed and a 0.035 guidewire was then advanced through the trocar and was manipulated into the IVC. An exit site was chosen on the chest wall and anesthetized with lidocaine. Using a metal tunneling device, a 28 cm Duraflow 2 dialysis access catheter was brought througha subcutaneous tunnel to the venotomy incision and prepared for insertion. Serial dilators were utilized to create a track to the jugular vein sufficient to accommodate a peel-away sheath which was inserted over the guidewire and the inner stylet was removed. The catheter was inserted through the sheath which was then removed. The catheter was adjustedfor length under fluoroscopy such that the tip was at the junction of theSVC and RA. Both lumens flushed easily and were locked with heparin. The catheter was sutured in place with 2-0 nylon and a CHG dressing wasplaced. The venotomy incision was closed with a 2-0 nylon suture. Moderate sedation on this adult patient was ordered by me, administered intravenously in my presence, and monitored by the procedure nurse as an independent trained observer who was present throughout the procedure.The following parameters were monitored: oxygen saturation, heart rate,blood pressure, and response to care. Intra-service sedation start time [id number] and end time was 1212 during which I was present. Total physician intra-service sedation time was 32 minutes. For details on pre-moderate sedation and post-moderate sedation patient evaluation, please reviewthe evaluation forms in [facility]. For details on monitored clinical parameters during the intra-service sedation time, please review the procedurenurse documentation in [facility]. Impression: Successful placement of left internal jugular tunneleddialysis catheter. I was present for the entire procedure. > Interpreting Provider: Ingrid Harmon MD on 08/06/2024 12:20 PM Rob Cruz MD IR ORDERABLES * (ABNORMAL) CBC W/O DIFFERENTIAL (08/06/2024 4:02 AM T) Only the most recent of25 resultswithin the time period is included. WBC 17.2(H) 4.0 - 10.7 x10E9/L 08/06/2024 4:52 AM [facility] RBC Count 2.98(L) 3.90 - 5.20 x10E12/L 08/06/2024 4:52 AM [facility] Hemoglobin 8.6(L) 11.9 - 15.8 g/dL 08/06/2024 4:52 AM [facility] Hematocrit 28.9(L) 34.8 - 46.1 % 08/06/2024 4:52 AM [facility] MCV 97.0 80.0 - 98.0 fL 08/06/2024 4:52 AM CDT [facility] MCH 28.9 26.7 - 33.6 pg 08/06/2024 4:52 AM CDT [facility] MCHC 29.8(L) 31.7 - 36.3 g/dL 08/06/2024 4:52 AM CDT [facility] RDW-CV 13.6 11.3 - 14.8 % 08/06/2024 4:52 AM CDT [facility] Platelet Count 608(H) 150 - 420 x10E9/L 08/06/2024 4:52 AM CDT [facility] MPV 9.2 7.8 - 11.4 fL 08/06/2024 4:52 AM T [facility] Blood BLOOD SPECIMEN / Unknown Venipuncture / Unknown 08/06/2024 4:02 AM CDT 08/06/2024 4:48 AM CDT Rob Cruz MD LAB - HEMATOLOGY ORD ERABLES [facility] [address] [place] [address], [facility] [phone] * XR Chest 1Vw Portable (08/05/2024 8:57 PM CDT) Only the most recent of9 resultswithin the time period is included. Anatomical Region Laterality Modality Chest Digital Radiogra phy 08/06/2024 12:2 6 PM CDT Impressions 08/06/2024 12:27 PM CDT IMPRESSION: *Left IJ central venous catheter terminates in the right atrium. Stable cardiomediastinal silhouette. Low lung volumes with bronchovascular crowding. Suspected superimposed mild interstitial edema. No large pleural effusion or pneumothorax. > Interpreting Provider: Stoney Hong MD on 08/06/2024 12:27 PM Narrative 08/06/2024 12:27 PM CDT PROCEDURE: ??XR CHEST 1VW PORTABLE DATE/TIME OF EXAM: ??08/05/2024 8:57 PM CLINICAL INFORMATION: None relevant/not provided if blank. Indication: R09.02: Hypoxia Additional History: COMPARISON: 07/30/2024 Procedure Note Stoney Hong MD - 08/06/2024 PROCEDURE: XR CHEST 1VW PORTABLE DATE/TIME OF EXAM: 08/05/2024 8:57 PM CLINICAL INFORMATION: None relevant/not provided if blank. Indication: R09.02: Hypoxia Additional History: COMPARISON: 07/30/2024 IMPRESSION: *Left IJ central venous catheter terminates in the right atrium. Stable cardiomediastinal silhouette. Low lung volumes withbronchovascular crowding. Suspected superimposed mild interstitial edema. No largepleural effusion or pneumothorax. > Interpreting Provider: Stoney Hong MD on 08/06/2024 12:27 PM Mateo Daugherty MD DIAGNOSTIC IMAGING O RDERABLES * (ABNORMAL) BASIC METABOLIC PANEL (CALCIUM TOTAL) (08/05/2024 8:32 PM CDT) Only the most recent of23 resultswithin the time period is included. BUN 13 7 - 26 mg/dL 08/05/2024 10:04 PM [facility] Creatinine 3.42(H) 0.56 - 0.96 mg/dL 08/05/2024 10:04 PM [facility] Sodium 134(L) 136 - 145 mmol/L 08/05/2024 10:04 PM [facility] Potassium 3.7 3.5 - 4.5 mmol/L 08/05/2024 10:04 PM [facility] Chloride 97(L) 98 - 107 mmol/L 08/05/2024 10:04 PM [facility] CO2 23 22 - 29 mmol/L 08/05/2024 10:04 PM [facility] Glucose 218(H) 70 - 115 mg/dL 08/05/2024 10:04 PM [facility] Calcium 9.3 8.4 - 10.2 mg/dL 08/05/2024 10:04 PM [facility] Anion Gap 14 6 - 16 08/05/2024 10:04 PM [facility] BUN/Creatinine Ratio 4(L) 7 - 23 08/05/2024 10:04 PM CDT [facility] Osmolality Calculated 285 275 - 295 mOsm/kg 08/05/2024 10:04 PM CDT [facility] eGFR by CKD-EPI 18(L) >=90 mL/min/1.7 3 m2 08/05/2024 10:04 PM CDT [facility] Blood BLOOD SPECIMEN / Unknown Venipuncture / Unknown 08/05/2024 8:32 PM CDT 08/05/2024 8:44 PM CDT Mateo Daugherty MD LAB - CHEMISTRY DIVINA OLVERA [facility] [address] [place] [address], [place] [phone] * LACTIC ACID BLOOD (08/05/2024 8:32 PM CDT) Only the most recent of7 resultswithin the time period is included. Lactic Acid-Stat 1.2 <=2.0 mmol/L 08/05/2024 9:14 PM CDT [facility] Blood BLOOD SPECIMEN / Unknown Venipuncture / Unknown 08/05/2024 8:32 PM CDT 08/05/2024 8:44 PM CDT Mateo Daugherty MD LAB - CHEMISTRY DIVINA OLVERA Performing Organization Address City/[facility]/ZIP Co de Phone Number [facility] [address] [place] [address], [place] [phone] * (ABNORMAL) BLOOD GASES ART + COOX PANEL (08/05/2024 8:32 PM CDT) pH Arterial 7.44 7.35 - 7.45 pH 08/05/2024 8:44 PM CDT [facility] pO2 Arterial 99 80 - 100 mmHg 08/05/2024 8:44 PM CDT [facility] pCO2 Arterial 40 35 - 45 mmHg 8:44 PM CDT [facility] HCO3 Arterial 27.2 20.0 - 30.0 mmol/L 08/05/2024 8:44 PM CDT [facility] BE Arterial 2.8(H) -2.0 - 2.0 mmol/L 08/05/2024 8:44 PM [facility] Oxyhemoglobin Arterial 96.4 % 08/05/2024 8:44 PM T [facility] Dexoyhemoglobin (HHB) % 2.5 % 08/05/2024 8:44 PM T [facility] Methemoglobin <0.8 0.0 - 2.0 % 08/05/2024 8:44 PM [facility] Carboxyhemoglobin 1.1 0.0 - 2.0 % 2023 8:44 PM [facility] O2 Content Arterial 15.1 Interpret within clinical context ml/dL 08/05/2024 8:44 PM [facility] Hemoglobin by COOX 11.0(L) 12.0 - 15.6 g/dL 08/05/2024 8:44 PM [facility] O2 Saturation Arterial 98 90 - 100 % 08/05/2024 8:44 PM [facility] FI O2 Arterial 15.0 % 08/05/2024 8:44 PM [facility] Blood, arterial ARTERIAL BLOOD SPECIMEN / Unknown Arterial Puncture / Unknown 08/05/2024 8:32 PM CDT 08/05/2024 8:38 PM CDT [facility] - 08/05/2024 8:44 PM CDT Carboxyhemoglobin Normal Concentration: Non-smokers: 0-2%; Smokers: 0-9%; Toxic: >20% Mateo Daugherty MD LAB - BLOOD GASES OR DERABLES [facility] [address] [place] [address], [facility] [phone] * PT-INR [facility] (08/04/2024 2:54 AM CDT) Only the most recent of8 resultswithin the time period is included. PT 14.6 12.1 - 14.8 Seconds 08/04/2024 4:12 AM [facility] INR 1.2 See Comment 08/04/2024 4:12 AM CDT [facility] Comment:The suggested therap eutic range for standard coumadin (warfarin) therapy is an INR of 2.0-3.0. For high-risk patients (Mechanical Mitral Valve Prosthesis, etc.), the suggested prophylactic therapeutic range is an INR of 2.5-3.5. Blood BLOOD SPECIMEN / Unknown Lab Venipuncture / Unknown 08/04/2024 2:54 AM CDT 08/04/2024 3:39 AM CDT Rob Cruz MD LAB - COAGULATION OR DERABLES [facility] [address] [place] [address], [facility] [phone] * ECHO MATT COMPLETE (07/30/2024 2:05 PM CDT) LVOT diam 1.747 cm SSM CV FUJ I PACS Sinus of Valsalva 2.644 cm SSM CV FUJI PACS Anatomical Region Laterality Modality Ultrasound 07/30/2024 3:43 PM CDT Narrative 08/02/2024 8:49 AM CDT Summary ??* Left ventricular systolic function is normal visually. ??* Intact interatrial septum visualized by 2D, color Doppler and agitated saline imaging. ??* The left atrial appendage is windsock shaped with normal velocity, and there is no thrombus. ??* No valvular vegetations. Patient Info Name: ? Leeroy Canales Age: ? 33 years : ? 1990 Gender: ? Female Accession #: ? [id number] Ht: ? 67 in Wt: ? 250 lb BSA: ? 2.37 m2 HR: ? 88 bpm BP: ? 130 / ? 77 mmHg Exam Date: ? 07/30/2024 3:43 PM Patient Status: ? I/P Study Site: ? [facility] Primary Location: ? [facility] EStudy Info Technical Quality: ? Good Exam Type: ? ECHO MATT COMPLETE Indications ?A41.02 - Sepsis due to methicillin resistant Staphylococcus aureus (MRSA), unspecified whether acute organ dysfunction present (HCC) * A complete transesophageal echo was performed using 2D, color Doppler, and spectral Doppler. Nanotechnician: ? Levi Marlow Complications ??* There were no complications prior to, during or in recovery from the transesophageal echocardiogram. Medications ??* The patient was premedicated with 4.00 mg intravenous Versed. ??* The patient was premedicated with 100.00 mcg intravenous Fentanyl. Procedure Details ??The patient arrived in a fasting state after obtaining informed consent. The transesophageal probe was passed without difficulty into the posterior pharynx, mid-esophagus, distal esophagus, and gastric fundus. ??Imaging was performed at multiple levels. ??The patient tolerated the procedure well and there were no complications. ??The patient was transferred out of the examination area in satisfactory condition. Probe passed by the buffer machine without difficulty. Left Ventricle ??Left ventricular systolic function is normal visually. Right Ventricle ??Right ventricular systolic function is normal. Left Atrium ??The left atrium is dilated. Atrial Septum ??Intact interatrial septum visualized by 2D, color Doppler and agitated saline imaging. Atrial Appendage ??The left atrial appendage is windsock shaped with normal velocity, and there is no thrombus. Aortic Valve ??The aortic valve is trileaflet. ??No vegetation. There is no aortic valve stenosis. There is no aortic valve regurgitation. Pulmonic Valve ??The pulmonic valve does not have any vegetation. There is no pulmonic regurgitation. Mitral Valve ??The mitral valve is normal. ??No vegetation. There is no mitral valve stenosis. There is mild mitral valve regurgitation with a central jet. Tricuspid Valve ??The tricuspid valve is normal. No vegetation. There is mild tricuspid valve regurgitation. There is no tricuspid valve stenosis. Pericardium/Pleural ??There is no pericardial effusion. Inferior Vena Cava ??The inferior vena cava is not well visualized and therefore the right atrial pressure is assumed to be 8 mmHg. Aorta ??No plaque in the descending of the aorta. The aortic root at the sinus of Valsalva is normal in size measuring 2.6 cm with an index of 1.1 cm/m2. Proximal aorta is 2.5cm in diameter. Measurements Left Ventricular Outflow Tract Name ? Value ?Normal LVOT 2D LVOT Diameter ? 1.7 cm ? LVOT Area ?2.4 cm2 Tricuspid Valve Name ? Value ?Normal Estimated PAP/RSVP RA Pressure ? 8 mmHg ? <=5 Aorta Name ? Value ?Normal Ascending Aorta Sinus of Valsalva Diameter ?2.6 cm ? 2.4-3.6 Sinus of Valsalva Index ?1.1 cm/m2 ? 1.4-2.2 Aortic Valve Name ? Value ?Normal AV Regurgitation 2D LVOT Area ? 2.39 cm2 Report Signatures Finalized by Ruth Wilcox ?? on 08/02/2024 08:49 AM Procedure Note Ruth Wilcox MD - 08/02/2024 Summary * Left ventricular systolic function is normal visually. * Intact interatrial septum visualized by 2D, color Doppler andagitated saline imaging. * The left atrial appendage is windsock shaped with normal velocity,and there is no thrombus. * No valvular vegetations. Patient Info Name: Leeroy Canales Age: 33 years : 1990 Gender: Female Ht: 67 in Wt: 250 lb BSA: 2.37 m2 HR: 88 bpm BP: 130 / 77 mmHg Exam Date: 07/30/2024 3:43 PM Patient Status: I/P Study Site: [facility] Primary Location: [facility] EStudy Info Technical Quality: Good Exam Type: ECHO MATT COMPLETE Indications A41.02 - Sepsis due to methicillin resistant Staphylococcus aureus(MRSA), unspecified whether acute organ dysfunction present (HCC) * A complete transesophageal echo was performed using 2D, color Doppler,and spectral Doppler. Nanotechnician: Levi Marlow Complications * There were no complications prior to, during or in recovery from the transesophageal echocardiogram. Medications * The patient was premedicated with 4.00 mg intravenous Versed. * The patient was premedicated with 100.00 mcg intravenous Fentanyl. Procedure Details The patient arrived in a fasting state after obtaining informedconsent. The transesophageal probe was passed without difficulty into theposterior pharynx, mid-esophagus, distal esophagus, and gastric fundus. Imagingwas performed at multiple levels. The patient tolerated the procedure welland there were no complications. The patient was transferred out of the examination area in satisfactory condition. Probe passed by thecardiologist without difficulty. Left Ventricle Left ventricular systolic function is normal visually. Right Ventricle Right ventricular systolic function is normal. Left Atrium The left atrium is dilated. Atrial Septum Intact interatrial septum visualized by 2D, color Doppler and agitated saline imaging. Atrial Appendage The left atrial appendage is windsock shaped with normal velocity, andthere is no thrombus. Aortic Valve The aortic valve is trileaflet. No vegetation. There is no aorticvalve stenosis. There is no aortic valve regurgitation. Pulmonic Valve The pulmonic valve does not have any vegetation. There is no pulmonic regurgitation. Mitral Valve The mitral valve is normal. No vegetation. There is no mitral valve stenosis. There is mild mitral valve regurgitation with a central jet. Tricuspid Valve The tricuspid valve is normal. No vegetation. There is mild tricuspidvalve regurgitation. There is no tricuspid valve stenosis. Pericardium/Pleural There is no pericardial effusion. Inferior Vena Cava The inferior vena cava is not well visualized and therefore the rightatrial pressure is assumed to be 8 mmHg. Aorta No plaque in the descending of the aorta. The aortic root at the sinusof Valsalva is normal in size measuring 2.6 cm with an index of 1.1 cm/m2. Proximal aorta is 2.5cm in diameter. Measurements Left Ventricular Outflow Tract Name Value Normal LVOT 2D LVOT Diameter 1.7 cm LVOT Area 2.4 cm2 Tricuspid Valve Name Value Normal Estimated PAP/RSVP RA Pressure 8 mmHg <=5 Aorta Name Value Normal Ascending Aorta Sinus of Valsalva Diameter 2.6 cm 2.4-3.6 Sinus of Valsalva Index 1.1 cm/m2 1.4-2.2 Aortic Valve Name Value Normal AV Regurgitation 2D LVOT Area 2.39 cm2 Report Signatures Finalized by Ruth Wilcox MD on 08/02/2024 08:49 AM Geronimo Burleson MD ECHO CUPID * VAS Arterial Multilevel Le (07/30/2024 8:06 AM CDT) Anatomical Region Laterality Modality Ultrasound 07/30/2024 7:21 AM CDT Narrative Procedure Note Graeme Rodgers MD - 07/30/2024 Geronimo Burleson MD VASCULAR LAB O RDERABLES * VAS Right Venous Duplex Ue (07/30/2024 8:06 AM CDT) Only the most recent of3 resultswithin the time period is included. Anatomical Region Laterality Modality Upper Extremity Ultrasound 07/30/2024 7:37 AM CDT Narrative Procedure Note Graeme Rodgers MD - 07/30/2024 Geronimo Burleson MD VASCULAR LAB O RDERABLES * IR Central Line Removal (07/28/2024 5:07 PM CDT) Anatomical Region Laterality Modality Other Narrative 07/28/2024 7:17 PM CDT Nicolás Truong DO ? 07/28/2024 ??7:18 PM [facility] Department of Nephrology Procedure Note Procedure: Permcath removal Procedure Indication: Bacteremia Procedure Date: 07/28/2024 Performing Physician: Nicolás Truong DO Supervising Physician: Dr Aneta Lopez Procedure Description: With the patient in supine position, the Right side of the Neck and the existing catheter were prepped and draped in a sterile fashion, with hand washing, hat, mask. 1% Lidocaine was injected subcutaneously around the catheter tract. ??Using a sterile dilator, the cuff of the catheter was slowly exposed, then lysis of the fibrous tissues with blunt dissection around the catheter was done with caution. The catheter was removed without complications. With the patient now sitting upright, pressure was held over the entry site in the Right Internal Jugular Vein and hemostasis was achieved.. EBL was approximately 2 ml.The area was covered with steri stips, a clean gauze and a Tegaderm The patient tolerated the procedure well. Nicolás Truong DO Nephrology Fellow [facility] [employer] Geronimo Burleson MD IR ORDERABLES * CT Foot Right W Contrast (07/28/2024 2:20 PM CDT) Anatomical Region Laterality Modality Ankle / Foot Computed Tomogra phy 07/28/2024 3:08 PM CDT Impressions 07/28/2024 3:14 PM CDT IMPRESSION: Wound at the plantar aspect of the hindfoot overlying the calcaneal tuberosity. Changes in the underlying calcaneus compatible with sequela of osteomyelitis. > Interpreting Provider: Xander De Guzman MD on 07/28/2024 3:14 PM Narrative 07/28/2024 3:14 PM CDT PROCEDURE: ??CT FOOT RIGHT W CONTRAST DATE/TIME OF EXAM: ??07/28/2024 2:20 PM CLINICAL INFORMATION: None relevant/not provided if blank. Indication: L97.419: Chronic heel ulcer, right, with unspecified severity (HCC) Additional History: COMPARISON: Right foot x-rays dated 04/26/2023. MRI right ankle dated 04/28/2023. TECHNIQUE: CT of the [right foot' was performed with intravenous contrast. CT dose reduction technique was used, including Automated Exposure Control. IV CONTRAST: IOPAMIDOL 76 % IV SOLN:100 mL FINDINGS: There is a skin and subcutaneous tissue defect compatible with a wound at the plantar posterior aspect of the hindfoot overlying the calcaneal tuberosity measuring 3.5 x 2.2 cm and 0.8 cm in depth. There is increased attenuation within the surrounding subcutaneous tissues which may represent inflammation, granulation tissue, and/or scarring. There is periosteal reaction and sclerosis of the underlying calcaneal tuberosity compatible with chronic changes associated with osteomyelitis. There is no acute fracture or dislocation. The joint spaces are normal. No fluid collection is seen. Procedure Note Xander De Guzman MD - 07/28/2024 PROCEDURE: CT FOOT RIGHT W CONTRAST DATE/TIME OF EXAM: 07/28/2024 2:20 PM CLINICAL INFORMATION: None relevant/not provided if blank. Indication: L97.419: Chronic heel ulcer, right, with unspecifiedseverity (HCC) Additional History: COMPARISON: Right foot x-rays dated 04/26/2023. MRI right ankle dated 04/28/2023. TECHNIQUE: CT of the [right foot' was performed with intravenous contrast. CT dose reduction technique was used, including Automated ExposureControl. IV CONTRAST: IOPAMIDOL 76 % IV SOLN:100 mL FINDINGS: There is a skin and subcutaneous tissue defect compatible with a woundat the plantar posterior aspect of the hindfoot overlying the calcaneal tuberosity measuring 3.5 x 2.2 cm and 0.8 cm in depth. There isincreased attenuation within the surrounding subcutaneous tissues which mayrepresent inflammation, granulation tissue, and/or scarring. There is periosteal reaction and sclerosis of the underlying calcaneal tuberosity compatible with chronic changes associated with osteomyelitis. There is no acute fracture or dislocation. The joint spaces are normal. No fluidcollection is seen. IMPRESSION: Wound at the plantar aspect of the hindfoot overlying the calcaneal tuberosity. Changes in the underlying calcaneus compatible with sequela of osteomyelitis. > Interpreting Provider: Xander De Guzman MD on 07/28/2024 3:14 PM [address]imo Burleson MD CT ORDERABLES * ECHO COMPLETE W CONTRAST (07/28/2024 8:44 AM CDT) Only the most recent of2 resultswithin the time period is included. IVSd 2D 1.01 cm SSM CV FUJ I PACS LVIDd 5.088 cm SSM CV FUJ I PACS LVIDs 3.394 cm SSM CV FUJ I PACS LVOT diam 1.909 cm SSM CV FUJ I PACS LVPWd 0.856 cm SSM CV FUJ I PACS LV biplane EF 54.845 % SSM CV FUJI PACS LV A2C EF 50.72 % SSM CV FUJ I PACS LV A4C EF 58.185 % SSM CV FUJ I PACS LV EDV A2C 93.656 ml SSM CV FU JI PACS LV EDV A4C 102.349 ml SSM CV FU JI PACS LV ESV A2C 46.154 ml SSM CV FU JI PACS LV ESV A4C 42.797 ml SSM CV FU JI PACS LVOT pk mariajose 121.038 cm/s SSM CV F UJI PACS LVOT VTI 25.161 cm SSM CV FUJ I PACS RVIDd 3.136 cm SSM CV FUJ I PACS RVOT pk mariajose 93.121 cm/s SSM CV F UJI PACS RVOT VTI 21.89 cm SSM CV FUJ I PACS LA size 3.929 cm SSM CV FUJ I PACS LA vol index 0.036 l/m? ? ? SSM CV FUJI PACS Myocardial strain charge 2 unitless SSM CV FUJI PACS LA vol BP 79.258 ml SSM CV FUJ I PACS AV mn grad 6.612 mmHg SSM CV FU JI PACS AV pk mariajose 157.587 cm/s SSM CV FUJ I PACS AV VTI 29.112 cm SSM CV FUJ I PACS MV A pk mariajose 99.542 cm/s SSM CV F UJI PACS MV E pk mariajose 117.705 cm/s SSM CV F UJI PACS MV E' lateral mariajose 8.784 cm/s SSM CV FUJI PACS MV mn grad 2.753 mmHg SSM CV FU JI PACS MV VTI 27.837 cm SSM CV FUJ I PACS PV pk mariajose 115.306 cm/s SSM CV FUJ I PACS PV VTI 26.963 cm SSM CV FUJ I PACS TAPSE 2.703 cm SSM CV FUJ I PACS TR pk mariajose 218.016 cm/s SSM CV FUJ I PACS Ascending aorta 2.397 cm SSM CV FUJI PACS IVC Diam Expiration 1.489 cm SSM CV FUJI PACS Anatomical Region Laterality Modality Ultrasound 07/28/2024 7:15 AM CDT Narrative 07/28/2024 9:40 AM CDT Summary ??* The left ventricle is normal in size, with normal systolic function and an estimated ejection fraction of 55 % by biplane method of disks. Left ventricular wall motion is normal. ??* The left ventricular diastolic function is consistent with grade II diastolic dysfunction. ??* Right ventricle is normal in size with normal systolic function. ??* The left atrium is mildly dilated with a left atrial volume index of 36 ml/m2 by BP MOD. ??* The pulmonary artery systolic pressure is normal, 22 mmHg. ??* No significant valvular abnormalities. ??* No evidence of vegetation on this study. If clinical suspicion remains high for endocarditis, would suggest transesophageal echocardiogram. Patient Info Name: ? Leeroy Canales Age: ? 33 years : ? 1990 Gender: ? Female Accession #: ? [id number] Ht: ? 67 in Wt: ? 250 lb BSA: ? 2.37 m2 HR: ? 81 bpm BP: ? 144 / ? 77 mmHg Heart Rhythm: ? Sinus Rhythm Exam Date: ? 07/28/2024 7:15 AM Patient Status: ? I/P Study Site: ? [facility] Primary Location: ? [facility] EStud Info Technical Quality: ? Fair Exam Type: ? ECHO COMPLETE W CONTRAST Indications ?A41.9 - Sepsis, ??due to unspecified organism, ??unspecified whether acute organ dysfunction present (HCC) Procedure(s) ??* A complete 2D, color Doppler, and spectral Doppler transthoracic echocardiogram was performed. ??* An Ultrasound Enhancing Agent (UEA) was utilized to enhance endocardial definition and opacity the left ventricle. Contrast/Agitated Saline Contrast / Saline: ? Definity Amount: ? 0.50 ml Administered By: ? Nitesh Donis Reason for Technically Difficult ??Study: ? body habitus, restricted mobility, positional limitations Staff Referring Physician: ? Geronimo Burleson Ordering Provider: ? Geronimo Burleson Attending Physician: ? Geronimo Burleson Moccasin Sewer: ? Nitesh Donis Left Ventricle ??The left ventricle is normal in size. Left ventricular systolic function is normal with an estimated ejection fraction of 55 % by biplane method of disks. There is no increased left ventricular wall thickness. The left ventricular mass is normal. Left ventricular segmental wall motion is normal. The left ventricular diastolic function is consistent with grade II diastolic dysfunction. Right Ventricle ??The right ventricle is normal in size. Right ventricular systolic function is normal. Left Atrium ??The left atrium is mildly dilated with a left atrial volume index of 36 ml/m2 by BP MOD. Right Atrium ??The right atrium is normal in size. Atrial Septum ??Intact interatrial septum visualized by 2D and color Doppler imaging. Aortic Valve ??The aortic valve is trileaflet. There is no aortic valve stenosis. There is no aortic valve regurgitation. Pulmonic Valve ??The pulmonic valve is normal. There is no pulmonic valve stenosis. There is mild pulmonic regurgitation. Mitral Valve ??The mitral valve is normal. There is no mitral valve stenosis. There is mild mitral valve regurgitation. Tricuspid Valve ??The tricuspid valve is normal. There is trace tricuspid valve regurgitation. The pulmonary artery systolic pressure is normal, 22 mmHg. Inferior Vena Cava ??The inferior vena cava is normal in size (< 2.1 cm). There is > 50% collapse of the IVC upon inspiration with an estimated right atrial pressure of 3 mmHg. Pericardium/Pleural ??There is a trivial pericardial effusion. Aorta ??The aortic root at the sinus of Valsalva is normal in size. The ascending aorta is normal in size. Measurements Left Ventricular Outflow Tract Name ? Value ?Normal LVOT 2D LVOT Diameter ? 1.9 cm ? LVOT Area ?2.9 cm2 ? LVOT Doppler LVOT Peak Velocity ? 1.2 m/s ? LVOT Peak Gradient ?6 mmHg ? LVOT Mean Velocity ?96.87 cm/s ? LVOT Mean Gradient ?4 mmHg ? LVOT VTI ? 25.2 cm ? LVOT VTI/AV VTI Ratio ?0.9 ? LVOT Stroke Volume ? 72 ml ? LVOT Stroke Volume Index ?30 ml/m2 ? 35-58 LVOT CO ?5.8 l/min ? LVOT CI ? 2.5 l/min/m2 Pulmonic Valve Name ? Value ?Normal RVOT Doppler RVOT Peak Velocity ? 0.9 m/s ? RVOT Peak Gradient ?3 mmHg ? RVOT Mean Gradient ?3 mmHg ? PV Doppler PV Peak Velocity ? 1.2 m/s ? PV Peak Gradient ?5 mmHg ? PV Mean Gradient ?3 mmHg Mitral Valve Name ? Value ?Normal MV Doppler MV Peak Gradient ?7 mmHg ? MV Mean Gradient ?3 mmHg ? MV DI (VTI) ? 1.11 ? MV PHT ? 64 ms ? MV Area (PHT) ? 3.42 cm2 ? 4.00-5.00 MV Area (Cont Eq VTI) ? 2.59 cm2 ? MV Diastolic Function MV E Peak Velocity ? 1.2 m/sec ? MV A Peak Velocity ? 1.0 m/sec ? MV E/A ? 1.2 ? MV Decel Time (PW) ?155 ms ? MV A Wave Duration ?108 ms ? MV Annular TDI MV Septal e' Velocity ? 7 cm/s ? >=8 MV E/e' (Septal) ?17 ? <=8 MV Lateral e' Velocity ?9 cm/s ?>=10 MV E/e' (Lateral) ? 13 ? <=8 MV e' Average ? 8 cm/s ? MV E/e' (Average) ? 15 Tricuspid Valve Name ? Value ?Normal TV Regurgitation Doppler TR Peak Velocity ? 2.2 m/s ? TR Peak Gradient ? 19 mmHg ? Estimated PAP/RSVP RA Pressure ? 3 mmHg ? <=5 PA Systolic Pressure ? 22 mmHg ? <35 RV Systolic Pressure ? 22 mmHg ? <36 TV Annular TDI TV Lateral Kayla s' Velocity ? 17 cm/s ? 10-19 Pulmonary Vessels Name ? Value ?Normal Pulmonary Veins Pulm Vein Peak Systolic Velocity ? 48.5 cm/s ? Pulm Vein Peak Diastolic Velocity ? 61.3 cm/s ? Pulm Vein S/D Velocity Ratio ?1 ? Pulm Vein Ar Velocity ?15.9 cm/s ? Pulm Vein Ar Dur - MV A Dur ?29 ms Aorta Name ? Value ?Normal Ascending Aorta Asc Ao Diameter ? 2.4 cm ? 1.9-3.5 Asc Ao Diameter Index ?1.0 cm/m2 ? 1.0-2.2 Venous Name ? Value ?Normal IVC/SVC IVC Diameter ?1.5 cm ? <=2.1 Aortic Valve Name ? Value ?Normal AV 2D/MM AV Cusp Sep (MM) ?1.8 cm ? AV Doppler AV Peak Velocity ?1.58 m/s ? AV Peak Gradient ? 10 mmHg ? AV Mean Gradient ?7 mmHg ? AV VTI ? 29 cm ? AV Area (Cont Eq VTI) ? 2.47 cm2 ?>=2.00 AV Area (Cont Eq Mariajose) ? 2.20 cm2 ? AV DI (VTI) ? 0.86 ? AV DI (Mariajose) ? 0.77 ? AV Regurgitation 2D LVOT Area ? 2.86 cm2 Ventricles Name ? Value ?Normal LV Dimensions 2D/MM IVS Diastolic Thickness (2D) ?1.0 cm ? 0.6-0.9 LVID Diastole (2D) ?5.1 cm ? 3.8-5.2 LVPW Diastolic Thickness (2D) ?0.9 cm ? 0.6-0.9 IVS Systolic Thickness (2D) ? 1.3 cm ? LVID Systole (2D) ? 3.4 cm ? 2.2-3.5 LVPW Systolic Thickness (2D) ?1.2 cm ? LV Mass (2D Cubed) ? 157 g ?67-162 LV Mass Index (2D Cubed) ? 66 g/m2 ? 43-95 Relative Wall Thickness (2D) ?0.34 ?<=0.42 LV Fractional Shortening/Ejection Fraction 2D/MM LV Fractional Shortening (2D) ?33 % ? 27-45 LV EF (2D Teicholz) ? 62 % ? 54-74 LV Diastolic Volume (4C MOD) ?102 ml ? LV EF (4C MOD) ?58 % ? LV Diastolic Volume (2C MOD) ? 94 ml ? LV EF (2C MOD) ?51 % ? LV Diastolic Volume (BP MOD) ? 98 ml ?46-106 LV Diastolic Volume Index (BP MOD) ?41 ml/m2 ? 29-61 LV Systolic Volume (BP MOD) ?44 ml ? 14-42 LV Systolic Volume Index (BP MOD) ?19 ml/m2 ?8-24 LV EF (BP MOD) ?55 % ? 54-74 LV Diastolic Length (4C) ?7.0 cm ? LV Systolic Length (4C) ? 5.7 cm ? LV Stroke Volume (4C MOD) ?60 ml ? RV Dimensions 2D/MM RVID Diastole (2D) ?3.1 cm ? 2.5-3.5 RVID Systole (2D) ? 2.6 cm ? TAPSE ? 2.7 cm ? >=1.7 Atria Name ? Value ?Normal LA Dimensions LA Dimension (2D) ? 3.9 cm ? 2.7-3.8 LA Dimen Index (2D) ?1.7 cm/m2 ? LA Volume (BP MOD) ? 79 ml ? LA Volume Index (BP MOD) ?36 ml/m2 ? 1634 Report Signatures Finalized by Ruth Wilcox ?? on 07/28/2024 09:40 AM Procedure Note Ruth Wilcox MD - 07/28/2024 Summary * The left ventricle is normal in size, with normal systolic functionand an estimated ejection fraction of 55 % by biplane method of disks. Left ventricular wall motion is normal. * The left ventricular diastolic function is consistent with grade II diastolic dysfunction. * Right ventricle is normal in size with normal systolic function. * The left atrium is mildly dilated with a left atrial volume index of36 ml/m2 by BP MOD. * The pulmonary artery systolic pressure is normal, 22 mmHg. * No significant valvular abnormalities. * No evidence of vegetation on this study. If clinical suspicionremains high for endocarditis, would suggest transesophageal echocardiogram. Patient Info Name: Leeroy Canales Age: 33 years : 1990 Gender: Female Ht: 67 in Wt: 250 lb BSA: 2.37 m2 HR: 81 bpm BP: 144 / 77 mmHg Heart Rhythm: Sinus Rhythm Exam Date: 07/28/2024 7:15 AM Patient Status: I/P [facility]: Fair Exam Type: ECHO COMPLETE W CONTRAST Indications A41.9 - Sepsis, due to unspecified organism, unspecified whetheracute organ dysfunction present (HCC) Procedure(s) * A complete 2D, color Doppler, and spectral Doppler transthoracic echocardiogram was performed. * An Ultrasound Enhancing Agent (UEA) was utilized to enhanceendocardial definition and opacity the left ventricle. Contrast/Agitated Saline Contrast / Saline: Definity Amount: 0.50 ml Administered By: Nitesh Donis Reason for Technically Difficult Study: body habitus, restrictedmobility, positional limitations Staff Referring Physician: Geronimo Burleson Ordering Provider: Geronimo Burleson Attending Physician: Geronimo Burleson Moccasin Sewer: Nitesh Donis Left Ventricle The left ventricle is normal in size. Left ventricular systolic functionis normal with an estimated ejection fraction of 55 % by biplane method ofdisks. There is no increased left ventricular wall thickness. The leftventricular mass is normal. Left ventricular segmental wall motion is normal. Theleft ventricular diastolic function is consistent with grade II diastolic dysfunction. Right Ventricle The right ventricle is normal in size. Right ventricular systolicfunction is normal. Left Atrium The left atrium is mildly dilated with a left atrial volume index of36 ml/m2 by BP MOD. Right Atrium The right atrium is normal in size. Atrial Septum Intact interatrial septum visualized by 2D and color Doppler imaging. Aortic Valve The aortic valve is trileaflet. There is no aortic valve stenosis. Thereis no aortic valve regurgitation. Pulmonic Valve The pulmonic valve is normal. There is no pulmonic valve stenosis. Thereis mild pulmonic regurgitation. Mitral Valve The mitral valve is normal. There is no mitral valve stenosis. There ismild mitral valve regurgitation. Tricuspid Valve The tricuspid valve is normal. There is trace tricuspid valveregurgitation. The pulmonary artery systolic pressure is normal, 22 mmHg. Inferior Vena Cava The inferior vena cava is normal in size (< 2.1 cm). There is > 50%collapse of the IVC upon inspiration with an estimated right atrial pressure of 3mmHg. Pericardium/Pleural There is a trivial pericardial effusion. Aorta The aortic root at the sinus of Valsalva is normal in size. Theascending aorta is normal in size. Measurements Left Ventricular Outflow Tract Name Value Normal LVOT 2D LVOT Diameter 1.9 cm LVOT Area 2.9 cm2 LVOT Doppler LVOT Peak Velocity 1.2 m/s LVOT Peak Gradient 6 mmHg LVOT Mean Velocity 96.87 cm/s LVOT Mean Gradient 4 mmHg LVOT VTI 25.2 cm LVOT VTI/AV VTI Ratio 0.9 LVOT Stroke Volume 72 ml LVOT Stroke Volume Index 30 ml/m2 35-58 LVOT CO 5.8 l/min LVOT CI 2.5 l/min/m2 Pulmonic Valve Name Value Normal RVOT Doppler RVOT Peak Velocity 0.9 m/s RVOT Peak Gradient 3 mmHg RVOT Mean Gradient 3 mmHg PV Doppler PV Peak Velocity 1.2 m/s PV Peak Gradient 5 mmHg PV Mean Gradient 3 mmHg Mitral Valve Name Value Normal MV Doppler MV Peak Gradient 7 mmHg MV Mean Gradient 3 mmHg MV DI (VTI) 1.11 MV PHT 64 ms MV Area (PHT) 3.42 cm2 4.00-5.00 MV Area (Cont Eq VTI) 2.59 cm2 MV Diastolic Function MV E Peak Velocity 1.2 m/sec MV A Peak Velocity 1.0 m/sec MV E/A 1.2 MV Decel Time (PW) 155 ms MV A Wave Duration 108 ms MV Annular TDI MV Septal e' Velocity 7 cm/s >=8 MV E/e' (Septal) 17 <=8 MV Lateral e' Velocity 9 cm/s >=10 MV E/e' (Lateral) 13 <=8 MV e' Average 8 cm/s MV E/e' (Average) 15 Tricuspid Valve Name Value Normal TV Regurgitation Doppler TR Peak Velocity 2.2 m/s TR Peak Gradient 19 mmHg Estimated PAP/RSVP RA Pressure 3 mmHg <=5 PA Systolic Pressure 22 mmHg <35 RV Systolic Pressure 22 mmHg <36 TV Annular TDI TV Lateral Kayla s' Velocity 17 cm/s 10-19 Pulmonary Vessels Name Value Normal Pulmonary Veins Pulm Vein Peak Systolic Velocity 48.5 cm/s Pulm Vein Peak Diastolic Velocity 61.3 cm/s Pulm Vein S/D Velocity Ratio 1 Pulm Vein Ar Velocity 15.9 cm/s Pulm Vein Ar Dur - MV A Dur 29 ms Aorta Name Value Normal Ascending Aorta Asc Ao Diameter 2.4 cm 1.9-3.5 Asc Ao Diameter Index 1.0 cm/m2 1.0-2.2 Venous Name Value Normal IVC/SVC IVC Diameter 1.5 cm <=2.1 Aortic Valve Name Value Normal AV 2D/MM AV Cusp Sep (MM) 1.8 cm AV Doppler AV Peak Velocity 1.58 m/s AV Peak Gradient 10 mmHg AV Mean Gradient 7 mmHg AV VTI 29 cm AV Area (Cont Eq VTI) 2.47 cm2 >=2.00 AV Area (Cont Eq Mariajose) 2.20 cm2 AV DI (VTI) 0.86 AV DI (Mariajose) 0.77 AV Regurgitation 2D LVOT Area 2.86 cm2 Ventricles Name Value Normal LV Dimensions 2D/MM IVS Diastolic Thickness (2D) 1.0 cm 0.6-0.9 LVID Diastole (2D) 5.1 cm 3.8-5.2 LVPW Diastolic Thickness (2D) 0.9 cm 0.6-0.9 IVS Systolic Thickness (2D) 1.3 cm LVID Systole (2D) 3.4 cm 2.2-3.5 LVPW Systolic Thickness (2D) 1.2 cm LV Mass (2D Cubed) 157 g 67-162 LV Mass Index (2D Cubed) 66 g/m2 43-95 Relative Wall Thickness (2D) 0.34 <=0.42 LV Fractional Shortening/Ejection Fraction 2D/MM LV Fractional Shortening (2D) 33 % 27-45 LV EF (2D Teicholz) 62 % 54-74 LV Diastolic Volume (4C MOD) 102 ml LV EF (4C MOD) 58 % LV Diastolic Volume (2C MOD) 94 ml LV EF (2C MOD) 51 % LV Diastolic Volume (BP MOD) 98 ml 46-106 LV Diastolic Volume Index (BP MOD) 41 ml/m2 29-61 LV Systolic Volume (BP MOD) 44 ml 14-42 LV Systolic Volume Index (BP MOD) 19 ml/m2 8-24 LV EF (BP MOD) 55 % 54-74 LV Diastolic Length (4C) 7.0 cm LV Systolic Length (4C) 5.7 cm LV Stroke Volume (4C MOD) 60 ml RV Dimensions 2D/MM RVID Diastole (2D) 3.1 cm 2.5-3.5 RVID Systole (2D) 2.6 cm TAPSE 2.7 cm >=1.7 Atria Name Value Normal LA Dimensions LA Dimension (2D) 3.9 cm 2.7-3.8 LA Dimen Index (2D) 1.7 cm/m2 LA Volume (BP MOD) 79 ml LA Volume Index (BP MOD) 36 ml/m2 16-34 Report Signatures Finalized by Ruth Wilcox MD on 07/28/2024 09:40 AM Geronimo Burleson MD ECHO CUPID * CT Chest Abdomen Pelvis W Cont (07/27/2024 1:41 PM CDT) Anatomical Region Laterality Modality Chest, Abdomen, Pelvis Computed Tomography 07/27/2024 4:20 PM CDT Impressions 07/27/2024 5:19 PM CDT Impression: 1.A 2.9 cm right subscapularis abscess with adjacent osteomyelitis of the right humeral head and septic arthritis. There is a surgical drain likely in the glenohumeral joint space. 2.An ill-defined fluid collection adjacent to the left humerus without a well-defined rim which may represent an early developing abscess versus phlegmon. 3.Cardiomegaly with pulmonary edema. 4.Dendriform pulmonary ossifications in the lung bases. > Dictated by Steve Haney, DO ??(vice president marketing & development). I, Arthur Avery MD have personally reviewed and interpreted this examination/study. > Interpreting Provider: Arthur Avery MD on 07/27/2024 5:19 PM Narrative 07/27/2024 5:19 PM CDT PROCEDURE: ??CT CHEST ABDOMEN PELVIS W CONT, DATE/TIME OF EXAM: ??07/27/2024 1:43 PM, LOCATION ??[facility] INDICATION: A41.9: Sepsis, due to unspecified organism, unspecified whether acute organ dysfunction present (HCC) ADDITIONAL CLINICAL INFORMATION: Ordering Provider Reason For Exam: ??evaluation for sources of infection COMPARISON: CTA chest abdomen pelvis 07/25/2024 TECHNIQUE: CT of the chest, abdomen, and pelvis was performed after the uneventful administration of 100 mL of Isovue 370 intravenous contrast according to standard protocol. Findings: Chest: Lower Neck and Axillae: There is a rim-enhancing fluid collection in the right subscapularis measuring 2.9 x 1.6 x 1.5 cm likely representing an abscess (image 18 series 3, image 65 series 5). There is a significant amount of adjacent fat stranding. There is a surgical drain likely in the glenohumeral joint space. There is another ill-defined fluid collection adjacent to the left humerus which does not appear to have a well-defined rim, which could represent an early developing abscess versus phlegmon (image 1-17 series 3). Lungs: Diffuse groundglass and patchy consolidations with associated peribronchovascular thickening which appear worse when compared to prior exam and likely represent worsening pulmonary edema. No other calcification the lung bases could represent dendriform pulmonary ossifications. No suspicious pulmonary nodules are identified. No pleural fluid or pneumothorax is present. Heart and Pericardium: Cardiomegaly without pericardial fluid or thickening. Mediastinum and Jeannie: Multiple prominent mediastinal lymph nodes measuring up to 9 mm in short axis. Thoracic Vasculature: No vascular abnormality is present. Abdomen/pelvis: Liver: Normal. Gallbladder and Bile Ducts: Normal. Spleen: Hyperattenuating lesion in the spleen likely representing a hemangioma. Pancreas: Normal. Adrenals: Normal. Kidneys: Normal. Gastrointestinal: The stomach and visualized loops of large and small bowel are unremarkable. Normal appendix. Mesentery/Peritoneum/Retroperitoneum: No free intraperitoneal air. No free fluid in the abdomen or pelvis. Bladder: Normal. Reproductive Organs: The uterus is normal. Abdominal Vasculature: No vascular abnormality is present. Bones: Erosions in the right humeral head may represent osteomyelitis. Soft tissues: Diffuse anasarca. Procedure Note Arthur Avery MD - 07/27/2024 PROCEDURE: CT CHEST ABDOMEN PELVIS W CONT, DATE/TIME OF EXAM:07/27/2024 1:43 PM, LOCATION [facility] INDICATION: A41.9: Sepsis, due to unspecified organism, unspecified whether acuteorgan dysfunction present (HCC) ADDITIONAL CLINICAL INFORMATION: Ordering Provider Reason For Exam: evaluation for sources of infection COMPARISON: CTA chest abdomen pelvis 07/25/2024 TECHNIQUE: CT of the chest, abdomen, and pelvis was performed after the uneventful administration of 100 mL of Isovue 370 intravenous contrast according to standard protocol. Findings: Chest: Lower Neck and Axillae: There is a rim-enhancing fluid collection in the right subscapularis measuring 2.9 x 1.6 x 1.5 cm likely representing an abscess (image 18 series 3, image 65 series 5). There is a significant amount of adjacentfat stranding. There is a surgical drain likely in the glenohumeral joint space. There is another ill-defined fluid collection adjacent to theleft humerus which does not appear to have a well-defined rim, which could represent an early developing abscess versus phlegmon (image 1-17 series 3). Lungs: Diffuse groundglass and patchy consolidations with associated peribronchovascular thickening which appear worse when compared to prior exam and likely represent worsening pulmonary edema. No othercalcification the lung bases could represent dendriform pulmonary ossifications. No suspicious pulmonary nodules are identified. No pleural fluid or pneumothorax is present. Heart and Pericardium: Cardiomegaly without pericardial fluid or thickening. Mediastinum and Jeannie: Multiple prominent mediastinal lymph nodes measuring up to 9 mm in short axis. Thoracic Vasculature: No vascular abnormality is present. Abdomen/pelvis: Liver: Normal. Gallbladder and Bile Ducts: Normal. Spleen: Hyperattenuating lesion in the spleen likely representing a hemangioma. Pancreas: Normal. Adrenals: Normal. Kidneys: Normal. Gastrointestinal: The stomach and visualized loops of large and small bowel areunremarkable. Normal appendix. Mesentery/Peritoneum/Retroperitoneum: No free intraperitoneal air. No free fluid in the abdomen or pelvis. Bladder: Normal. Reproductive Organs: The uterus is normal. Abdominal Vasculature: No vascular abnormality is present. Bones: Erosions in the right humeral head may represent osteomyelitis. Soft tissues: Diffuse anasarca. Impression: 1.A 2.9 cm right subscapularis abscess with adjacent osteomyelitis ofthe right humeral head and septic arthritis. There is a surgical drainlikely in the glenohumeral joint space. 2.An ill-defined fluid collection adjacent to the left humerus without a well-defined rim which may represent an early developing abscess versus phlegmon. 3.Cardiomegaly with pulmonary edema. 4.Dendriform pulmonary ossifications in the lung bases. > Dictated by Steve Haney DO (vice president marketing & development). I, Arthur Avery MD have personally reviewed and interpreted this examination/study. > Interpreting Provider: Arthur Avery MD on 07/27/2024 5:19 PM Geronimo Burleson MD CT ORDERABLES * CULTURE FUNGUS OTHER+FUNGUS SMEAR (07/27/2024 9:11 AM CDT) Only the most recent of3 resultswithin the time period is included. Culture No fungus isolated CHARLES 08/23/2024 6:22 AM CDT [facility] Fungus Stain No yeast or hyphae seen 08/23/2024 6:22 AM CDT [facility] Microbiology SYNOVIAL FLUID / Unknown Collection / Unknown 07/27/2024 9:11 AM CDT 07/27/2024 10:26 AM CDT Tao Chapman MD LAB - MICROBIOLOGY O RDERABLES Performing Organization Address City/[facility]/ZIP Co de Phone Number [facility] [address] [place] [address], [facility] [phone] * (ABNORMAL) CULTURE WOUND+GRAM STAIN (07/27/2024 9:11 AM CDT) Only the most recent of2 resultswithin the time period is included. Culture Rare Staphylococcus aureus methicillin-resista nt (MRSA)(A) CHARLES 07/30/2024 4:29 AM CDT [facility] Comment:Staphylococcus aureu s methicillin-resistant (MRSA) detected by penicillin binding protein immunoassay. Contact precautions required. Conventional antibiotic susceptibility testing to follow. Gram Stain Light Polymorphonuclear cells 07/30/2024 4:29 AM CDT [facility] Gram Stain No organisms seen 024 4:29 AM CDT [facility] Microbiology ENTIRE SHOULDER REGION / Unknown Collection / Unknown 07/27/2024 9:11 AM CDT 07/27/2024 10:26 AM CDT Narrative [facility] - 07/30/2024 4:29 AM CDT Methicillin-resistant Staphylococci (MRSA) are resistant to all currently available beta-lactam antibiotics with the exception of the newer cephalosporins with anti-MRSA activity. Contact precautions required. Organism Antibiotic Method Susceptibility Staphylococcus aureus methicillin-resistant (MRSA) Clindamycin CHARLES 0.25 ug/mL: Susceptible Staphylococcus aureus methicillin-resistant (MRSA) Doxycycline CHARLES <=0.5 ug/mL: Susceptible Staphylococcus aureus methicillin-resistant (MRSA) Inducible Clindamycin Resistance CHARLES NEG ug/mL: Neg Staphylococcus aureus methicillin-resistant (MRSA) Oxacillin CHARLES >=4 ug/mL: Resistant Staphylococcus aureus methicillin-resistant (MRSA) Trimethoprim-sulfamethox azole CHARLES >=320 ug/mL: Resistant Staphylococcus aureus methicillin-resistant (MRSA) Vancomycin CHARLES 1 ug/mL: Susceptible Tao Chapman MD LAB - MICROBIOLOGY O DARRELL [facility] [address] [place], [place] [address], [facility] [phone] * ETT LINE PERFORMABLE (07/27/2024 8:25 AM CDT) Narrative Lee Ayala MD - 07/27/2024 8:25 AM CDT Lee Ayala MD ? 07/27/2024 ??8:25 AM Endotracheal Tube Placement: ? Patient Location: OR. Intubation Event Date/Time: ??07/27/2024 7:45 AM Procedure: intubation (95249) Procedure Section: ?? Sedation: under general anesthesia. Indications for Airway Management: ??anesthesia Procedure pretreatments used? ??No Induction: standard IV Patient Position: ??sniffing Mask Ventilation: easy with oral airway. Blade Type: Video Blade Size: 3 Laryngoscopy View: grade 1 (full cords) Intubation Adjuncts: stylet and video laryngoscope Tube: endotracheal tube Placement: oral Tube type: cuff - inflated Tube Size (MM): 7 Depth of Insertion (CM): 22 Measured From: teeth Cuff Inflated With: air Number of Attempts: 1. Placement Verified By: direct visualization, bilateral breath sounds, CO2 monitor and chest auscultation Tube secured with: ??adhesive tape. Dentition unchanged? ??Yes Difficult Airway? ??No. Procedure Start Time: 07/27/2024 7:45 AM. Staff Section ? Anesthesia Provider: Lee Ayala MD, Performed the procedure ? Provider #1: Kavita Oneill MD. Kavita Oneill MD GENERAL ANESTHESIA ORDERABLES * TYPE + SCREEN PANEL (07/26/2024 3:48 PM CDT) Only the most recent of2 resultswithin the time period is included. Antibody Screen NEG 4 5:04 PM CDT [facility] ABO Rh A POS 07/26/2024 5:04 PM CDT [facility] Blood Bank BLOOD SPECIMEN / Unknown Lab Venipuncture / Unknown 07/26/2024 3:48 PM CDT 07/26/2024 4:20 PM CDT Ralph Burt MD LAB - BLOOD BANK ORD ERABLES [facility] [address] [place] [address] [[email or web address]] [phone] * (ABNORMAL) PROCALCITONIN LEVEL (07/26/2024 8:50 AM CDT) PROCALCITONIN 2.18(H) <=0.10 ng/mL 07/26/2024 9:52 AM CDT [facility] Blood BLOOD SPECIMEN / Unknown Lab Venipuncture / Unknown 07/26/2024 8:50 AM CDT 07/26/2024 8:59 AM CDT Narrative [facility] - 07/26/2024 9:52 AM CDT The change in procalcitonin (PCT) concentration over time provides support in decision making on antibiotic discontinuation for suspected or confirmed septic patients. Follow-up samples should be tested once every 1-2 days based upon physician discretion taking into account the patient? s evolution and progress. Consider discontinuation of ??antibiotic therapy ??if the PCT current ??is <= 0.5 ng/mL or if the delta PCT is > 80%. ??Duration of antibiotics should not be determined solely on PCT; established guidelines for the indication should be followed. ? PCT peak: ??Highest observed PCT concentration ? PCT current: Most recent PCT concentration ? Calculate delta PCT using the following equation: ?Delta PCT ??= ?? PCT Peak ? PCT current ??X 100% ? PCT Peak The Change in Procalcitonin Calculator is available at [email or web address] ?? If clinical picture has not improved and PCT remains high, reevaluate and consider treatment failure or other causes. Ralph Burt MD LAB - CHEMISTRY DIVINA OLVERA [facility] [address] [place] [address], [facility] [phone] * (ABNORMAL) B-TYPE NATRIURETIC PEPTIDE (07/26/2024 8:50 AM CDT) Only the most recent of3 resultswithin the time period is included. BNP 380(H) <100 pg/mL 07/26/2024 9:33 AM CDT [facility] Comment: A decision threshold of 100 pg/mL has been demonstrated to provide the maximal combination of sensitivity, specificity and predictive value for the diagnosis of congestive heart failure (CHF). ??Virtually all patients with no evidence of CHF have BNP values less than 100 pg/mL. A BNP value greater than 100 pg/mL is consistent with the diagnosis of CHF in the appropriate clinical setting. In a study of 693 patients (male and female) with diagnosed CHF, the following values were determined based on the NYHA functional classification system: NYHA Functional Class ?Mean Valule (pg/mL) ? % >100 pg/mL ?I ?320 ? 58.1 ?II ? 432 ? 73.0 ?III ?656 ? 79.0 ?IV ?1635 ? 98.3 ? Blood BLOOD SPECIMEN / Unknown Lab Venipuncture / Unknown 07/26/2024 8:50 AM CDT 07/26/2024 8:59 AM CDT Ralph Burt MD LAB - CHEMISTRY DIVINA OLVERA [facility] Organization Address City/State/ZIP Co de Phone Number [facility][note 3][address] [place] [address], [facility] [phone] * (ABNORMAL) BCID PANEL (07/25/2024 11:16 PM CDT) Only the most recent of2 resultswithin the time period is included. [facility] Staphylococcus aureus Detected (A) Not detected 07/26/2024 4:44 PM CDT [facility] MECA/C and MREJ (Methicillin-Resi stance Gene) Detected (A) Not detected 07/26/2024 4:44 PM CDT [facility] Comment:Results indicate met hicillin-resistant Staphylococcus aureus (MRSA). Methicillin resistance detected. Blood PERIPHERAL BLOOD / Unknown Lab Venipuncture / Unknown 07/25/2024 11:16 PM CDT 07/25/2024 11:24 PM CDT Narrative [facility] - 07/26/2024 4:44 PM CDT Blood Culture ID Panel performed by [employer] multiplex PCR. The Test panel includes: Gram Positive Bacteria: ??Enterococcus faecalis, Enterococcus faecium, Listeria monocytogenes, Staphylococcus (genus), Staphylococcus aureus, ??Staphylococcus epidermidis, Staphylococcus lugdunensis, Streptococcus (genus), Streptococcus agalactiae (Group B), Streptococcus pneumoniae, Streptococcus pyogenes (Group A). Gram Negative Bacteria: ??Acinetobacter baumannii complex, Bacteroides fragilis, Haemophilus influenzae, Neisseria meningitidis (encapsulated), Pseudomonas aeruginosa, Stenotrophomonas maltophilia, Enterobacterales (formerly Enterobacteriaceae family), Enterobacter cloacae complex, Escherichia coli, Klebsiella (formerly Enterobacter) aerogenes, ??Klebsiella oxytoca, Klebsiella pneumoniae group, Proteus (genus), Salmonella species, Serratia marcescens. YEAST: ??Larisa albicans, Larisa auris, Larisa glabrata, Larisa krusei, Larisa parapsilosis, Larisa tropicalis, Cryptococcus neoformans/gattii. Antimicrobial Resistance Genes: ??CTX-M (extended-spectrum beta-lactamase), IMP (metallo beta-lactamase), ??KPC (carbapenemase), mcr-1 (colistin resistance determinant) mecA/C (methicillin-resistance), mecA/C and MREJ (methicillin- resistance - MRSA), NDM ([place] anlfeta-jlnh-mydjmhshg), OXA-48-like (oxacillinase beta-lactamase),Geo/B (vancomycin-resistance), VIM (Esther Intergrom-Encoded Metallo beta-lactamase). Ralph Burt MD LAB - MICROBIOLOGY O DARRELL Performing Organization Address City/[facility]/ZIP Co de Phone Number [facility] [address] [place] [address], [facility] [phone] * (ABNORMAL) IRON + TRANSFERRIN PANEL (06/02/2024 5:52 AM CDT) Only the most recent of2 resultswithin the time period is included. Iron 42 40 - 150 ug/dL 06/02/2024 8:03 AM CDT [facility] Transferrin 166(L) 174 - 382 mg/dL 06/02/2024 8:03 AM CDT [facility] Transferrin Saturation % 20 16 - 50 % 06/02/2024 8:03 AM CDT [facility] TIBC Calculated 208(L) 240 - 450 ug/dL 06/02/2024 8:03 AM CDT [facility] Blood BLOOD SPECIMEN / Unknown Lab Venipuncture / Unknown 06/02/2024 5:52 AM CDT 06/02/2024 6:49 AM CDT Rob Cruz MD LAB - CHEMISTRY DIVINA OLVERA [facility] [address] [place] [address], [place] [phone] * (ABNORMAL) FERRITIN (06/02/2024 5:52 AM CDT) Only the most recent of2 resultswithin the time period is included. Ferritin 484(H) 13 - 204 ng/mL 06/02/2024 8:19 AM CDT [facility] Blood BLOOD SPECIMEN / Unknown Lab Venipuncture / Unknown 06/02/2024 5:52 AM CDT 06/02/2024 6:49 AM CDT Rob Cruz MD LAB - CHEMISTRY ORDE WADE Performing Organization Address City/[facility] Co de Phone Number [facility] [address] [place] [address], [facility] [phone] * HEPATITIS C AB SCREEN RFLX NAAT QUANT (05/31/2024 6:38 PM CDT) Only the most recent of2 resultswithin the time period is included. Pathologist [facility] Hepatitis C Antibody Non-react talia Non-reac tive 05/31/2024 7:33 PM CDT [facility] Comment:Hepatitis C Antibody screen indicates no serologic [...] LAB - CHEMISTRY ORDERABLES Performing Organization Address [facility]/ZIP Co de Phone Number [facility] [address] [place] [address], [place] [phone] * MRI SHOULDER LEFT WWO CONT (05/28/2024 8:56 AM CDT) Anatomical Region Laterality Modality Upper Extremity Magnetic Resonan ce 05/28/2024 9:35 AM CDT Impressions 05/28/2024 12:19 PM CDT Impression: ?? Distended distal subacromial subdeltoid bursa with the fluid and debris associated with inflammatory thickening of the synovium, diffuse inflammatory changes of the surrounding soft tissues including deltoid muscle. Mild bone marrow inflammation noted in the adjacent humeral head (predominantly underneath the greater tuberosity) and acromion process. Suspicious erosion of the undersurface of acromion. The findings are consistent with subacromial-subdeltoid bursitis, most likely infected bursitis. Small reactive joint effusion is noted in the shoulder joint; however, no imaging findings to suggest septic arthritis of the shoulder joint or acromioclavicular joint. > Dictated by Neisha Moreira M.D. - Diagnostic 3D Animator. I, Yolanda Rosalse MD have personally reviewed and interpreted this examination/study. > Interpreting Provider: Yolanda Rosales MD on 05/28/2024 12:19 PM Narrative 05/28/2024 12:19 PM CDT PROCEDURE: ??MRI SHOULDER LEFT WWO CONT, DATE/TIME OF EXAM: ??05/28/2024 8:56 AM, LOCATION ??[facility] INDICATION: N18.6: ESRD (end stage renal disease) ([facility]) ADDITIONAL CLINICAL INFORMATION: Ordering Provider Reason For Exam: ??concern for septic arthritis vs inflammatory arthropathy Technologist Note: Additional: MRI Shoulder ??without contrast Technique: ??Images were obtained in the axial, sagittal oblique, and coronal oblique planes using T1 and fluid sensitive pulse sequences with and without contrast Contrast: Gadoterate 18 mL Comparison: ??Left shoulder radiograph dated 05/24/2024. Findings: The subacromial subdeltoid bursa is distended with diffuse synovial thickening and fluid collection. There are debris noted within the joint space suggesting coronaries. Approximate thickness of the collection is 2 cm measured in the posterior aspect. There is associated thickening and T2 hyperintensity noted in the surrounding soft tissue suggesting inflammation and edema. Minimal bone marrow edema is seen in the humeral head underlying the greater tuberosity and acromion process. Suspicious focal erosion noted in the undersurface of the acromion process (image 16 series 5). Inflammatory changes are also seen in the deltoid muscle. Postcontrast T1-weighted sequences shows enhancement of the synovium of the bursa and enhancement of the surrounding soft tissue and muscles. Mild enhancement is also seen in the acromion process and humeral head adjacent to the greater tuberosity. The alignment of the shoulder joint is grossly preserved. The articular cartilage and surface of the humerus and glenoid are grossly preserved. No bony erosions seen. No bone marrow edema or enhancement seen in the humeral head and glenoid adjacent to the shoulder joint. Glenoid labrum is intact. Minimal joint effusion is noted and post contrast study shows similar enhancement could suggest reactive inflammation. No direct communication of the joint within the inflamed subdeltoid bursa. Glenoid labrum is intact. Suggestion of focal partial thickness tear with the minimal edema of the supraspinatus tendon at the footplate, otherwise no significant tear or tendinosis of the supraspinatus tendon. The infraspinatus, subscapularis, and teres minor are normal, without tendinosis or tear. ?? The acromioclavicular joint is intact. ??There is no significant acromioclavicular joint osteoarthritis. ?? The long head of the biceps anchor is intact, and the tendon is normal without tendinosis or tear. ?? Minimal subcutaneous edema is noted over the shoulder, this could be secondary to recent aspiration. Procedure Note Yolanda Rosales MD - 05/28/2024 PROCEDURE: MRI SHOULDER LEFT WWO CONT, DATE/TIME OF EXAM: 48:56 AM, LOCATION [facility] INDICATION: N18.6: ESRD (end stage renal disease) ([facility]) ADDITIONAL CLINICAL INFORMATION: Ordering Provider Reason For Exam: concern for septic arthritis vs inflammatory arthropathy Technologist Note: Additional: MRI Shoulder without contrast Technique: Images were obtained in the axial, sagittal oblique, and coronal oblique planes using T1 and fluid sensitive pulse sequences with and without contrast Contrast: Gadoterate 18 mL Comparison: Left shoulder radiograph dated 05/24/2024. Findings: The subacromial subdeltoid bursa is distended with diffuse synovial thickening and fluid collection. There are debris noted within the joint space suggesting coronaries. Approximate thickness of the collection is2 cm measured in the posterior aspect. There is associated thickening andT2 hyperintensity noted in the surrounding soft tissue suggestinginflammation and edema. Minimal bone marrow edema is seen in the humeral headunderlying the greater tuberosity and acromion process. Suspicious focal erosionnoted in the undersurface of the acromion process (image 16 series 5). Inflammatory changes are also seen in the deltoid muscle. Postcontrast T1-weighted sequences shows enhancement of the synovium of the bursa and enhancement of the surrounding soft tissue and muscles. Mild enhancementis also seen in the acromion process and humeral head adjacent to thegreater tuberosity. The alignment of the shoulder joint is grossly preserved. The articular cartilage and surface of the humerus and glenoid are grossly preserved.No bony erosions seen. No bone marrow edema or enhancement seen in thehumeral head and glenoid adjacent to the shoulder joint. Glenoid labrum is intact. Minimal joint effusion is noted and post contrast study shows similar enhancement could suggest reactive inflammation. No direct communicationof the joint within the inflamed subdeltoid bursa. Glenoid labrum is intact. Suggestion of focal partial thickness tear with the minimal edema of the supraspinatus tendon at the footplate, otherwise no significant tear or tendinosis of the supraspinatus tendon. The infraspinatus, subscapularis, and teres minor are normal, without tendinosis or tear. The acromioclavicular joint is intact. There is no significant acromioclavicular joint osteoarthritis. The long head of the biceps anchor is intact, and the tendon is normal without tendinosis or tear. Minimal subcutaneous edema is noted over the shoulder, this could be secondary to recent aspiration. Impression: Distended distal subacromial subdeltoid bursa with the fluid and debris associated with inflammatory thickening of the synovium, diffuse inflammatory changes of the surrounding soft tissues including deltoid muscle. Mild bone marrow inflammation noted in the adjacent humeral head (predominantly underneath the greater tuberosity) and acromion process. Suspicious erosion of the undersurface of acromion. The findings are consistent with subacromial-subdeltoid bursitis, most likely infected bursitis. Small reactive joint effusion is noted in the shoulder joint; however,no imaging findings to suggest septic arthritis of the shoulder joint or acromioclavicular joint. > Dictated by Neisha Moreira M.D. - Diagnostic 3D Animator. I, Yolanda Rosales MD have personally reviewed and interpreted this examination/study. > Interpreting Provider: Yolanda Rosales MD on 7/26/638506:19 PM Hunter Chin III, MD MR ORDERABLES * HEMOGLOBIN ELECTROPHORESIS (05/27/2024 6:59 AM CDT) Only the most recent of2 resultswithin the time period is included. Interpretation Hemoglobin Pattern Normal Pattern Normal Pattern 05/28/2024 1:54 PM CDT [facility] Comment: Capillary hemoglobin (Hb) electrophoresis shows two Hb bands with electrophoretic mobilities corresponding to HbA and HbA2. No abnormal hemoglobins detected. ?? One or two gene deletion alpha thalassemia cannot be excluded since these conditions are not associated with abnormal findings on routine hemoglobin electrophoresis and except for mild microcytosis, are generally not associated with other hematologic abnormalities. Fredi Coates PhD, [facility] Clinical Credit Control Administrator cupola tapper These results/interpretation were reviewed and verified by the attending physician: Gail Montero MD Attending Physician Transfusion Medicine/Clinical Pathology *The electrophoresis pattern and the interpretation have been reviewed and verified by the teaching physician. Hemoglobin A 97.7 97.0 - 98.2 % 05/28/2024 1:54 PM CDT [facility] Hemoglobin A2 2.3 1.8 - 3.0 % 05/28/2024 1:54 PM CDT [facility] Blood BLOOD SPECIMEN / Unknown Lab Venipuncture / Unknown 05/27/2024 6:59 AM CDT 05/27/2024 7:04 AM CDT Hunter Chin III, MD LAB - CHEMISTRY ORDERABLES Performing Organization Address [facility]/State/[facility] Co de Phone Number [address] [address], [facility] [phone] * XR SHOULDER LEFT 2VW OR MORE (05/24/2024 1:36 PM CDT) Only the most recent of2 resultswithin the time period is included. Anatomical Region Laterality Modality Upper Extremity Radiographic Nissa ging 05/24/2024 2:18 PM CDT Impressions 05/24/2024 2:22 PM CDT IMPRESSION: Suggestion of a lucency projecting approximately 2.1 cm in length in relationship to the undersurface of the acromion process. This has relatively well-defined margins and is not clearly defined on the prior study. This has a somewhat cystic appearance. There is no definite associated bony destructive process. If greater anatomic detail is desired, suggest MRI of the left shoulder. No definite radiographic manifestations of osteomyelitis nor evidence of fracture nor dislocation. > Interpreting Provider: Jed Dale MD on 05/24/2024 2:22 PM Narrative 05/24/2024 2:22 PM CDT PROCEDURE: ??XR SHOULDER LEFT 2VW OR MORE DATE/TIME OF EXAM: ??05/24/2024 1:36 PM CLINICAL INFORMATION: None relevant/not provided if blank. Indication: M86.9: Osteomyelitis of left shoulder, unspecified type (HCC) Additional History: COMPARISON: 3 view left shoulder study dated 02/22/2024 FINDINGS: Portable AP internal and external rotation and transscapular views were obtained. There is no evidence of fracture, dislocation, joint space width abnormality nor disruption of the left shoulder articulations. Lucency projecting over the inferior aspect of the acromion process may represent a cyst. No definite bony destruction identified. Seen on the AP internal rotation view is some subtle radiopaque density, possibly artifactual in etiology seen lateral to the level of the humeral neck. Procedure Note Jed Dale MD - 05/24/2024 PROCEDURE: XR SHOULDER LEFT 2VW OR MORE DATE/TIME OF EXAM: 05/24/2024 1:36 PM CLINICAL INFORMATION: None relevant/not provided if blank. Indication: M86.9: Osteomyelitis of left shoulder, unspecified type(HCC) Additional History: COMPARISON: 3 view left shoulder study dated 02/22/2024 FINDINGS: Portable AP internal and external rotation and transscapular views were obtained. There is no evidence of fracture, dislocation,joint space width abnormality nor disruption of the left shoulderarticulations. Lucency projecting over the inferior aspect of the acromion process may represent a cyst. No definite bony destruction identified. Seen on theAP internal rotation view is some subtle radiopaque density, possibly artifactual in etiology seen lateral to the level of the humeral neck. IMPRESSION: Suggestion of a lucency projecting approximately 2.1 cm in length in relationship to the undersurface of the acromion process. This has relatively well-defined margins and is not clearly defined on theprior study. This has a somewhat cystic appearance. There is no definite associated bony destructive process. If greater anatomic detail isdesired, suggest MRI of the left shoulder. No definite radiographic manifestations of osteomyelitis nor evidence of fracture nor dislocation. > Interpreting Provider: Jed Dale MD on 05/24/2024 2:22 PM Noe Rabago MD DIAGNOSTIC IMAGING O RDERABLES * (ABNORMAL) DIFFERENTIAL MANUAL (03/01/2024 3:10 AM CDT) Only the most recent of11 resultswithin the time period is included. Neutrophil % 72 41 - 74 % 03/01/2024 4:12 AM [facility] Lymphocyte % 12(L) 17 - 47 % 03/01/2024 4:12 AM [facility] Monocyte % 7 3 - 11 % 03/01/2024 4:12 AM [facility] Eosinophil % 8(H) 0 - 7 % 03/01/2024 4:12 AM [facility] Basophil % 1 0 - 2 % 03/01/2024 4:12 AM [facility] Neutrophil Absolute 10.15(H) 1.60 - 7.50 x10E9/L 03/01/2024 4:12 AM [facility] Lymphocyte Absolute 1.69 1.00 - 4.40 x10E9/L 03/01/2024 4:12 AM [facility] Monocyte Absolute 0.99 0.15 - 1.00 x10E9/L 03/01/2024 4:12 AM [facility] Eosinophil Absolute 1.13(H) 0.00 - 0.60 x10E9/L 03/01/2024 4:12 AM [facility] Basophil Absolute 0.14(H) 0.00 - 0.13 x10E9/L 03/01/2024 4:12 AM [facility] RBC Morphology REVIEWED 03/01/2024 4:12 AM [facility] Blood BLOOD SPECIMEN / Unknown Venipuncture / Unknown 03/01/2024 3:10 AM CDT 03/01/2024 3:25 AM CDT Justyn Galvez DO LAB - HEMATOLOGY ORD ERABLES [facility] [address] [place] [address], [facility] [phone] * IR CENTRAL LINE REPLACE (02/25/2024 11:21 AM CDT) Anatomical Region Laterality Modality X-Ray Angiograph y 02/25/2024 11:2 0 AM CDT Impressions 02/25/2024 11:22 AM CDT IMPRESSION: Successful replacement of central line under fluoroscopic guidance. > Interpreting Provider: Husam Palacios MD on 02/25/2024 11:22 AM Narrative 02/25/2024 11:22 AM CDT PROCEDURE: ??IR CENTRAL LINE REPLACE DATE/TIME OF EXAM: ??02/25/2024 11:21 AM CLINICAL INFORMATION: None relevant/not provided if blank. Indication: N18.6: ESRD (end stage renal disease) (HCC) Additional History: Stem Roller Operator: Husam Palacios COMPARISON: None. FLUOROSCOPY DOSE: ??2 mGy Reference air kerma (ka,r). FINDINGS: Following informed consent the patient was taken to ??the angiography suite and placed on the fluoroscopy table. The skin of the Right neck and chest was prepared with chlorhexidine and sterile drapes were applied. The stay sutures around existing right internal jugular dialysis access catheter were removed and local anesthetic was infiltrated around the exit site. Using blunt dissection the cuff was freed from surrounding tissues and brought to the exterior. Locking solution was aspirated from both ports. A stiff Glidewire was then inserted through the blue port of the catheter and manipulated into the inferior vena cava. The existing catheter was then removed over the guidewire. A new 15.5F 24cm Duraflow 2 dialysis access catheter was then advanced over the wire and the wire was then removed. Both lumens flushed easily and locked with heparin. Fluoroscopy confirmed the presence of the catheter tip within the mid right atrium. The catheter was sutured in place at the exit site with 2-0 nylon and a stat lock was applied. A sterile CHG dressing was then applied. The patient tolerated procedure without difficulty. I was present for the entire procedure. Procedure Note Husam Palacios MD - 02/25/2024 PROCEDURE: IR CENTRAL LINE REPLACE DATE/TIME OF EXAM: 02/25/2024 11:21 AM CLINICAL INFORMATION: None relevant/not provided if blank. Indication: N18.6: ESRD (end stage renal disease) (HCC) Additional History: Stem Roller Operator: Husam Palacios COMPARISON: None. FLUOROSCOPY DOSE: 2 mGy Reference air kerma (ka,r). FINDINGS: Following informed consent the patient was taken to the angiographysuite and placed on the fluoroscopy table. The skin of the Right neck andchest was prepared with chlorhexidine and sterile drapes were applied. Thestay sutures around existing right internal jugular dialysis access catheter were removed and local anesthetic was infiltrated around the exit site. Using blunt dissection the cuff was freed from surrounding tissues and brought to the exterior. Locking solution was aspirated from both ports.A stiff Glidewire was then inserted through the blue port of the catheterand manipulated into the inferior vena cava. The existing catheter was then removed over the guidewire. A new 15.5F 24cm Duraflow 2 dialysis access catheter was then advanced over the wire and the wire was then removed. Both lumens flushed easily and locked with heparin. Fluoroscopyconfirmed the presence of the catheter tip within the mid right atrium. Thecatheter was sutured in place at the exit site with 2-0 nylon and a stat lock was applied. A sterile CHG dressing was then applied. The patient tolerated procedure without difficulty. I was present for the entire procedure. IMPRESSION: Successful replacement of central line under fluoroscopic guidance. > Interpreting Provider: Husam Palacios MD on 02/25/2024 11:22 AM Kranthi Miles MD IR ORDERABLES * CT GUIDED NEEDLE PLACEMENT (02/25/2024 10:27 AM CDT) Anatomical Region Laterality Modality Abdomen Computed Tomogra phy 02/27/2024 8:32 AM CDT Impressions 02/27/2024 8:34 AM CDT Impression: Ultrasound guided aspiration of ??left scapula/shoulder collection fluid from the left shoulder collection, as described above. I performed/was present throughout the procedure and provided the moderate sedation service. Please see nursing flow chart for more details. . ?? > Interpreting Provider: Tommie Quintanilla MD on 02/27/2024 8:34 AM Narrative 02/27/2024 8:34 AM CDT PROCEDURE: ??CT GUIDED NEEDLE PLACEMENT DATE/TIME OF EXAM: ??02/25/2024 10:38 AM CLINICAL INFORMATION: None relevant/not provided if blank. Indication: L02.419: Shoulder abscess Additional History: History: Patient with the left scapula collection for aspiration Operators: 1.Dr. Tommie Quintanilla, Attending Physician 2.Dr. Alvarado, Resident Physician Anesthesia: 1.Local anesthesia - 10 ml of 1% Lidocaine Sedation:Versed:1mg, Fentanyl: 50mcg Sedation start time:1057hours Procedure start time:1052hours Procedure end time:1111 hours Additional drugs:500units Heparin Fluoroscopy time:0.8min Procedure: 1.Limited CT and ultrasound evaluation of left shoulder region. 2.Ultrasound guided aspiration ??of left shoulder collection in the left shoulder. Procedure in Detail: The procedure and possible complications were explained to the patient in detail, and informed consent was obtained. The patient was placed in a supine position on the ultrasound table and a limited ultrasound evaluation of left shoulder. The limited USG evaluation demonstrated ??collection in the region of the lateral aspect of the scapula this is confirmed on CT.. Patient received intravenous conscious sedation with Versed and Fentanyl. Patient s vital signs were monitored by a qualified radiology nurse throughout the procedure. The marked site and skin around the region was prepped and draped in a sterile fashion. ??Local anesthesia was provided by the injection with 1% Lidocaine. ??A co-axial needle system was advanced in stages under real time ultrasound guidance. Upon aspiration, the out-sheath was advanced within thecollection. The initial aspirate was pus and approximately 15 cc amount of fluid was drained. Appropriate amount of aspirate was sent for necessary laboratory work up. ??There is no ??immediate complication like hemorrhage noted. The patient tolerated the procedure and sedation ??well. The patient was transferred to holding area in stable condition. Procedure Note Tommie Quintanilla MD - 02/27/2024 PROCEDURE: CT GUIDED NEEDLE PLACEMENT DATE/TIME OF EXAM: 02/25/2024 10:38 AM CLINICAL INFORMATION: None relevant/not provided if blank. Indication: L02.419: Shoulder abscess Additional History: History: Patient with the left scapula collection for aspiration Operators: 1.Dr. Tommie Quintanilla, Attending Physician 2.Dr. Alvarado, Resident Physician Anesthesia: 1.Local anesthesia - 10 ml of 1% Lidocaine Sedation:Versed:1mg, Fentanyl: 50mcg Sedation start time:1057hours Procedure start time:1052hours Procedure end time:1111 hours Additional drugs:500units Heparin Fluoroscopy time:0.8min Procedure: 1.Limited CT and ultrasound evaluation of left shoulder region. 2.Ultrasound guided aspiration of left shoulder collection in the left shoulder. Procedure in Detail: The procedure and possible complications were explained to the patient in detail, and informed consent was obtained. The patient was placed in a supine position on the ultrasound table hamida limited ultrasound evaluation of left shoulder. The limited USGevaluation demonstrated collection in the region of the lateral aspect of thescapula this is confirmed on CT.. Patient received intravenous conscious sedation with Versed andFentanyl. Patient s vital signs were monitored by a qualified radiology nurse throughout the procedure. The marked site and skin around the region was prepped and draped in a sterile fashion. Local anesthesia was provided by the injection with 1% Lidocaine. A co-axial needle system was advanced in stages under realtime ultrasound guidance. Upon aspiration, the out-sheath was advanced within thecollection. The initial aspirate was pus and approximately 15 ccamount of fluid was drained. Appropriate amount of aspirate was sent fornecessary laboratory work up. There is no immediate complication like hemorrhage noted. The patient tolerated the procedure and sedation well. The patient was transferred to holding area in stable condition. Impression: Ultrasound guided aspiration of left scapula/shoulder collection fluid from the left shoulder collection, as described above. I performed/was present throughout the procedure and provided themoderate sedation service. Please see nursing flow chart for more details. . > Interpreting Provider: Tommie Quintanilla MD on 02/27/2024 8:34 AM King Taylor PA-C CT ORDERABLES * CULTURE AFB+SMEAR (02/25/2024 10:24 AM CDT) Only the most recent of2 resultswithin the time period is included. Culture No acid-fast bacillus isolated 04/05/2024 7:24 AM CDT [facility]CROBI[facility] AFB Smear No acid-fast bacilli seen 04/05/2024 7:24 AM CDT [facility] Microbiology SPECIMEN FROM ABSCESS / Unknown Collection / Unknown 02/25/2024 10:24 AM CDT 02/25/2024 10:55 AM CDT Kranthi Miles MD LAB - MICROBIOLOGY O RDKAUSHAL Performing Organization Address City/[facility]/ZIP Co de Phone Number [facility] [address] [place] [address], [facility] [phone] * (ABNORMAL) PTH INTACT W/O CALCIUM (02/25/2024 1:10 AM CDT) [facility] PTH Intact 93.0(H) 8.0 - 77.0 pg/mL 02/25/2024 2:44 AM CDT [facility] Blood BLOOD SPECIMEN / Unknown Lab Venipuncture / Unknown 02/25/2024 1:10 AM CDT 02/25/2024 1:46 AM CDT Rafa Patel MD LAB - CHEMISTRY DIVINA OLVERA Performing Organization Address [facility] Co de Phone Number [facility] [address] [place] [address], [place] [phone] * (ABNORMAL) VITAMIN D 25-HYDROXY (02/25/2024 1:10 AM CDT) Pathologist [facility] [place] Vitamin D, 25 Hydroxy 12.3(L) 30.0 - 80.0 ng/mL 02/25/2024 2:48 AM CDT [facility] Comment: The recommendations for 25-Hydroxy Vitamin D clinical decision points are as follows: ? Deficient: ? <20.0 ng/mL ? Insufficient: ? 20.0 - 29.9 ng/mL ? Sufficient: ? 30.0 - 100.0 ng/mL ? Potential Toxicity: ??>100 ng/mL Reference: The Endocrine Society Clinical Practice Guidelines. 2011 If the 25-Hydroxy Vitamin D results are inconsitent with clinical evidence, it is recommended that follow-up testing using a method such as LC/MS/MS be performed to confirm the result. ? Blood BLOOD SPECIMEN / Unknown Lab Venipuncture / Unknown 02/25/2024 1:10 AM CDT 02/25/2024 1:46 AM CDT Rafa Patel MD LAB - CHEMISTRY DIVINA OLVERA Performing Organization Address [facility]/ZIP Co de Phone Number [address] [address], [place] [phone] * FOLATE (02/25/2024 1:10 AM CDT) Folate 10.2 7.0 - 31.4 ng/mL 02/25/2024 2:48 AM CDT [facility] Blood BLOOD SPECIMEN / Unknown Lab Venipuncture / Unknown 02/25/2024 1:10 AM CDT 02/25/2024 1:46 AM CDT Rafa Patel MD LAB - CHEMISTRY DIVINA OLVERA [address] [address], [place] [phone] * VITAMIN B12 (02/25/2024 1:10 AM CDT) Vitamin B12 667 213 - 816 pg/mL 02/25/2024 2:48 AM CDT [facility] Blood BLOOD SPECIMEN / Unknown Lab Venipuncture / Unknown 02/25/2024 1:10 AM CDT 02/25/2024 1:46 AM CDT Rafa Patel MD LAB - CHEMISTRY DIVINA OLVERA [facility] [address] [place] [address], [place] [phone] * CHLAMYDIA + GC AMPLIFIED PROBE (02/24/2024 11:14 PM CDT) Only the most recent of2 resultswithin the time period is included. Chlamydia Amplified Probe Negative Negative 02/25/2024 7:24 PM CDT [facility] GC Amplified Probe Negative Negative 02/25/2024 7:24 PM CDT [facility] Microbiology URINE / Unknown Collection / Unknown 02/24/2024 11:14 PM CDT 02/24/2024 11:14 PM CDT Narrative [facility] - 02/25/2024 7:24 PM CDT Results based on detection/no detection of ribosomal RNA by amplified method. Justyn Galvez DO LAB - MICROBIOLOGY O RDERAALONZO Performing Organization Address City/[facility]/ZIP Co de Phone Number [facility]CROBI[facility] [address] [place] [address], [facility] [phone] * (ABNORMAL) URINE MICROSCOPIC ONLY REFLEX TO CULTURE (02/24/2024 11:06 PM CDT) Pathologist [facility] [place] Reflex Status Culture to follow 02/24/2024 11:37 PM CDT [facility] WBC UA 6-10(A) None Seen, 0-5 /HPF 02/24/2024 11:37 PM CDT [facility] Bacteria UA Trace(A) None /HPF 02/24/2024 11:37 PM CDT [facility] Squamous Epithelial Cells UA 0-2 None Seen, 0-2, 3-5 /HPF 02/24/2024 11:37 PM CDT [facility] Urine URINE SPECIMEN OBTAINED BY CLEAN CATCH PROCEDURE / Unknown Collection / Unknown 02/24/2024 11:06 PM CDT 02/24/2024 11:13 PM CDT Narrative [facility] - 02/24/2024 11:37 PM CDT Justyn [facility] LAB - URINALYSIS ORD ERABLES Performing Organization Address City/[facility]/ZIP Co de Phone Number [facility] [address] [place] [address], [facility] [phone] * (ABNORMAL) URINALYSIS REFLEX MICROSCOPIC REFLEX CULTURE (02/24/2024 11:06 PM CDT) Color UA Yellow Straw, Yellow 02/24/2024 11:36 PM CDT [facility] Clarity UA t Cloudy(A) Clear 02/24/2024 11:36 PM CDT [facility] Specific [place] UA 1.015 1.005 - 1.030 02/24/2024 11:36 PM CDT [facility] pH UA 5.0 5.0 - 8.0 pH 02/24/2024 11:36 PM CDT [facility] Protein UA 3+(A) Negative 02/24/2024 11:36 PM T [facility] Glucose UA 2+(A) Negative 02/24/2024 11:36 PM CDT [facility] Ketone UA Trace(A) Negative 02/24/2024 11:36 PM T [facility] Bilirubin UA Negative Negative 02/24/2024 11:36 PM CDT [facility] Blood UA Negative Negative 02/24/2024 11:36 PM CDT [facility] Nitrite UA Negative Negative 02/24/2024 11:36 PM T [facility] Leukocyte Esterase 2+(A) Negative 02/24/2024 11:36 PM T [facility] Urobilinogen UA Negative Negative mg/dL 02/24/2024 11:36 PM T [facility] Urine URINE SPECIMEN OBTAINED BY CLEAN CATCH PROCEDURE / Unknown Collection / Unknown 02/24/2024 11:06 PM CDT 02/24/2024 11:13 PM CDT [facility] - 02/24/2024 11:36 PM CDT Justyn Galvez LAB - URINALYSIS ORD ERABLES [facility] [address] [place] [phone] [[email or web address]] [phone] * (ABNORMAL) CULTURE URINE (02/24/2024 11:06 PM CDT) Pathologist [facility] [place] Culture Urine 50,000-100,000 CFU/mL Enterococcus faecium vancomycin-resi stant (VRE)(A) CHARLES 02/27/2024 11:22 PM CDT [facility] Comment:Susceptibility to fo llow Culture Urine 50,000-100,000 CFU/mL urogenital nish CHARLES 02/27/2024 11:22 PM CDT [facility] Urine URINE SPECIMEN OBTAINED BY CLEAN CATCH PROCEDURE / Unknown Collection / Unknown 02/24/2024 11:06 PM CDT 02/24/2024 11:37 PM CDT Narrative Organism Antibiotic Method Susceptibility Enterococcus faecium vancomycin-resistant (VRE) Ampicillin CHARLES >=32 ug/mL: Resistant Enterococcus faecium vancomycin-resistant (VRE) Linezolid CHARLES 2 ug/mL: Susceptible Enterococcus faecium vancomycin-resistant (VRE) Nitrofurantoin CHARLES 64 ug/mL: Intermediate Enterococcus faecium vancomycin-resistant (VRE) Vancomycin CHARLES >=32 ug/mL: Resistant Justyn Galvez DO LAB - MICROBIOLOGY O DARRELL Performing Organization Address City/[facility]/ZIP Co de Phone Number [facility] [address] [place], [place] [address] [[email or web address]] [phone] * HIV-1 HIV-2 ANTIBODY + HIV P24 AG PANEL (02/24/2024 8:57 AM CDT) Only the most recent of2 resultswithin the time period is included. Pathologist [facility] [place] HIV Antigen/Antibod y 1 & 2 Non-reacti ve Non-react talia 02/24/2024 10:03 AM CDT [facility] Comment:No Laboratory eviden ce of HIV infection. Blood BLOOD SPECIMEN / Unknown Lab Venipuncture / Unknown 02/24/2024 8:57 AM CDT 02/24/2024 9:00 AM CDT Rafa Patel MD LAB - CHEMISTRY DIVINA OLVERA [facility] [address] [place] [address], [facility] [phone] * (ABNORMAL) HEPATITIS B SURFACE ANTIBODY (02/24/2024 1:30 AM CDT) Hepatitis B Virus Surface Antibody Reactive( A) Non-react talia 02/24/2024 2:45 AM CDT [facility] Comment: > 12 mIU/mL Hepatitis B surface Antibody (HBsAb). Reactive for HBsAb - individual is considered immune to Hepatitis B Virus infection. Hepatitis B Surface Antibody Quantitative 37.6(H) <8.0 mIU/mL 02/24/2024 2:45 AM CDT [facility] Comment: Hepatitis B Surface Antibody Numeric Result Interpretation: ? Nonreactive: ?<8.0 mIU/mL ? Indeterminate: ??8.0 - 12.0 mIU/mL ? Reactive: ?>12.0 mIU/mL ? Blood BLOOD SPECIMEN / Unknown Lab Venipuncture / Unknown 02/24/2024 1:30 AM CDT 02/24/2024 2:01 AM CDT Tao Stein MD LAB - CHEMISTRY DIVINA OLVERA [facility] Organization Address [facility] [facility] Co de Phone Number [facility] [address] [place] [phone], [facility] [phone] * XR FOOT RIGHT 3VW OR MORE (02/23/2024 3:25 PM CDT) Anatomical Region Laterality Modality Ankle / Foot Radiographic Nissa ging 02/24/2024 2:31 PM CDT Impressions 02/24/2024 2:33 PM CDT IMPRESSION: Ulceration in the right heel with adjacent soft tissue swelling. Sclerosis in the right calcaneus is nonspecific. Osteomyelitis is not excluded. MRI would better assess. > Interpreting Provider: Kavita Borrero MD on 02/24/2024 2:33 PM Narrative 02/24/2024 2:33 PM CDT PROCEDURE: ??XR FOOT RIGHT 3VW OR MORE DATE/TIME OF EXAM: ??02/23/2024 3:41 PM CLINICAL INFORMATION: None relevant/not provided if blank. Indication: E11.621: 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, unspecified ulcer stage (HCC) L97.419: 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, unspecified ulcer stage (HCC) Additional History: COMPARISON: 04/26/2023 FINDINGS: There is a soft tissue defect over the right heel. There is soft tissue swelling. There is some sclerosis in the calcaneus in this region without focal defect. There is hind foot soft tissue swelling. There are well-corticated erosion at the medial aspect of the first proximal phalanx head. No fracture. Joint spaces are normal. Procedure Note Kavita Borrero MD - 02/24/2024 PROCEDURE: XR FOOT RIGHT 3VW OR MORE DATE/TIME OF EXAM: 02/23/2024 3:41 PM CLINICAL INFORMATION: None relevant/not provided if blank. Indication: E11.621: 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, unspecified ulcer stage (HCC) L97.419: 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, unspecified ulcer stage (HCC) Additional History: COMPARISON: 04/26/2023 FINDINGS: There is a soft tissue defect over the right heel. There issoft tissue swelling. There is some sclerosis in the calcaneus in this region without focal defect. There is hind foot soft tissue swelling. There are well-corticated erosion at the medial aspect of the first proximalphalanx head. No fracture. Joint spaces are normal. IMPRESSION: Ulceration in the right heel with adjacent soft tissue swelling.Sclerosis in the right calcaneus is nonspecific. Osteomyelitis is not excluded.MRI would better assess. > Interpreting Provider: Kavita Borrero MD on 02/24/2024 2:33 PM Rafa Patel MD DIAGNOSTIC IMAGING O RDERABLES * SYPHILIS ANTIBODY CASCADING REFLEX (02/23/2024 7:37 AM CDT) Treponema pallidum Antibody Non-react talia Non-react talia 02/23/2024 8:52 AM CDT [facility] Comment: No Laboratory evidence of syphilis infection. ?? Note: ??Circulating antibodies may be low or undetectable in early infection. ??If recent exposure is suspected, re-draw sample in 2-4 weeks and repeat testing. Blood BLOOD SPECIMEN / Unknown Lab Venipuncture / Unknown 02/23/2024 7:37 AM CDT 02/23/2024 7:41 AM CDT Justyn Galvez DO LAB - SEROLOGY ORDER RICHARD Performing Organization Address [facility]/ZIP Co de Phone Number [address] [address], [facility] [phone] * HEPATITIS B SURFACE ANTIGEN W RFLX CONFIRMATION (02/23/2024 7:37 AM CDT) Hepatitis B Virus Surface Antigen Non-reacti ve Non-reacti ve 02/24/2024 1:30 AM T [facility] Blood BLOOD SPECIMEN / Unknown Lab Venipuncture / Unknown 02/23/2024 7:37 AM CDT 02/23/2024 7:41 AM CDT Tao Stein MD LAB - CHEMISTRY ORDE WADE Performing Organization Address [facility]/ZIP Co de Phone Number [address] [address], [facility] [phone] * (ABNORMAL) URINALYSIS REFLEX TO MICROSCOPIC NO CULTURE (02/23/2024 12:39 AM CDT) Only the most recent of2 resultswithin the time period is included. Color UA Yellow Straw, Yellow 02/23/2024 12:53 AM T [facility] Clarity UA Cloudy(A) Clear 02/23/2024 12:53 AM T [facility] Specific [place] UA 1.013 1.005 - 1.030 02/23/2024 12:53 AM [facility] pH UA 6.0 5.0 - 8.0 pH 02/23/2024 12:53 AM [facility] Protein UA 3+(A) Negative 02/23/2024 12:53 AM [facility] Glucose UA 3+(A) Negative 02/23/2024 12:53 AM [facility] Ketone UA Negative Negative 02/23/2024 12:53 AM [facility] Bilirubin UA Negative Negative 02/23/2024 12:53 AM [facility] Blood UA 1+(A) Negative 02/23/2024 12:53 AM [facility] Nitrite UA Negative Negative 02/23/2024 12:53 AM [facility] Leukocyte Esterase 3+(A) Negative 02/23/2024 12:53 AM [facility] Urobilinogen UA Negative Negative mg/dL 02/23/2024 12:53 AM [facility] RBC UA 51-100(A) None Seen, 0-2, 3-5 /HPF 02/23/2024 12:53 AM [facility] WBC UA >100(A) None Seen, 0-5 /HPF 02/23/2024 12:53 AM [facility] Bacteria UA Trace(A) None /HPF 02/23/2024 12:53 AM [facility] Yeast Budding UA Occasional( A) None /HPF 02/23/2024 12:53 AM [facility] Squamous Epithelial Cells UA 11-20(A) None Seen, 0-2, 3-5 /HPF 02/23/2024 12:53 AM [facility] Mucus UA 1+ /LPF 02/23/2024 12:53 AM [facility] Amorphous Crystals Rare(A) None /HPF 02/23/2024 12:53 AM [facility] Urine URINE SPECIMEN OBTAINED BY CLEAN CATCH PROCEDURE / Unknown Collection / Unknown 02/23/2024 12:39 AM CDT 02/23/2024 12:45 AM [facility] - 02/23/2024 12:53 AM T Justyn Galvez DO LAB - URINALYSIS ORD ERABLES [facility] [address] [place] [phone], [facility] [phone] * (ABNORMAL) MRSA DNA PCR (02/22/2024 11:59 PM CDT) Pathologist [facility] [place] MRSA DNA by PCR Detected( A) Not detected 02/23/2024 3:29 AM CDT [facility] MICROBIOLOGY Microbiology SPECIMEN FROM NASAL FOSSAE / Unknown Collection / Unknown 02/22/2024 11:59 PM CDT 02/23/2024 12:02 AM CDT Narrative [facility] MICROBIOLOGY - 02/23/2024 3:29 AM CDT Methicillin-resistant Staphylococcus aureus (MRSA) DNA is detected (presumed colonized with MRSA). Justyn Galvez LAB - MICROBIOLOGY O DARRELL [facility] MICROBIOLOGY [address] [place] [address], [facility] [phone] * CULTURE GC (02/22/2024 10:43 PM CDT) [facility] Culture Negative for Neisseria gonorrhoeae CHARLES 02/26/2024 8:36 AM CDT [facility] MICROBIOLOGY Microbiology SYNOVIAL FLUID / Unknown Collection / Unknown 02/22/2024 10:43 PM CDT 02/22/2024 10:57 PM CDT [facility] O DARRELL [facility] MICROBIOLOGY [address] [place] [address], [facility] [phone] * VANCOMYCIN LEVEL TROUGH (05/21/2023 4:50 AM CDT) Only the most recent of3 resultswithin the time period is included. Pathologist [facility] [place] Vancomycin Trough 15.5 10.0 - 20.0 ug/mL 05/21/2023 5:41 AM CDT [facility] Blood BLOOD SPECIMEN / Unknown Lab Venipuncture / Unknown 05/21/2023 4:50 AM CDT 05/21/2023 5:30 AM CDT [facility] - 05/21/2023 5:41 AM CDT See institution protocol. Irene Walker MD LAB - CHEMISTRY DIVINA OLVERA Performing Organization Address [facility]/ZIP Co de Phone Number [phone] [place] [address], [facility] [phone] * (ABNORMAL) VANCOMYCIN LEVEL PEAK (05/20/2023 9:18 AM CDT) Only the most recent of4 resultswithin the time period is included. Vancomycin Peak 20.1(L) 25.0 - 40.0 ug/mL 05/20/2023 10:01 AM CDT [facility] Blood BLOOD SPECIMEN / Unknown Lab Venipuncture / Unknown 05/20/2023 9:18 AM CDT 05/20/2023 9:22 AM CDT [facility] - 05/20/2023 10:01 AM CDT See institution protocol. Data does not support the use of vancomycin peak concentration for efficacy. Irene Walker MD LAB - CHEMISTRY DIVINA OLVERA Performing Organization Address [facility]/ZIP Co de Phone Number [address] [address], [facility] [phone] * CARDIAC EKG ORDER (05/19/2023 2:32 PM CDT) Only the most recent of2 resultswithin the time period is included. Narrative 05/19/2023 2:32 PM CDT Ordered by an unspecified provider. Scanned Document CARDIAC SERVICES ORD ERABLES * (ABNORMAL) RBC MORPHOLOGY (05/19/2023 6:38 AM CDT) Only the most recent of4 resultswithin the time period is included. Pathologist [facility] [place] Platelet Estimate Adequate Adequate 023 8:02 AM CDT [facility] Anisocytosis 1+(A) None 05/19/2023 8:02 AM CDT [facility] Hypochromia Few(A) None 05/19/2023 8:02 AM CDT [facility] Polychromasia Few(A) None 05/19/2023 8:02 AM CDT [facility] Schistocytes Occasional( A) None 05/19/2023 8:02 AM CDT [facility] Blood BLOOD SPECIMEN / Unknown Lab Venipuncture / Unknown 05/19/2023 6:38 AM CDT 05/19/2023 6:51 AM CDT Alfonso Jasmine MD LAB - HEMATOLOGY OR DERABLES Performing Organization Address [facility]/ZIP Co de Phone Number [facility] [address] [place] [address], [facility] [phone] * (ABNORMAL) PROTEIN CREATININE RATIO URINE RANDOM PNL (05/18/2023 2:53 PM CDT) Protein Urine 214 Not Established mg/dL 05/18/2023 8:10 PM CDT [facility] Comment:Result obtained by d ilution. Creatinine Urine 20 Not Established mg/dL 05/18/2023 8:10 PM CDT [facility] Comment:Result obtained by d ilution. Protein/Creati nine Ratio Urine 10.70(H) <0.10 05/18/2023 8:10 PM CDT [facility] Urine URINE SPECIMEN OBTAINED BY CLEAN CATCH PROCEDURE / Unknown Collection / Unknown 05/18/2023 2:53 PM CDT 05/18/2023 3:05 PM CDT Irene Walker MD LAB - URINE CHEMISTR Y ORDERABLES Performing Organization Address [facility]/ZIP Co de Phone Number [facility] [address] [place] [phone], [place] [phone] * CT HUMERUS RIGHT W CONTRAST (05/18/2023 1:14 AM CDT) Anatomical Region Laterality Modality Upper Extremity Computed Tomogra phy 05/18/2023 1:29 AM CDT Impressions 05/18/2023 1:39 PM CDT IMPRESSION: 1.Diffuse subcutaneous stranding throughout the imaged upper arm and chest wall is likely secondary to volume overload status in the setting of heart failure, less likely cellulitis. 2.No focal fluid collections identified to suggest abscess. > Dictated by Robert Woodruff MD (vice president marketing & development). I, Sorin Veronica have personally reviewed and interpreted this examination/study. > Interpreting Provider: Sorin Veronica on 05/18/2023 1:39 PM Narrative 05/18/2023 1:39 PM CDT PROCEDURE: ??CT HUMERUS RIGHT W CONTRAST, DATE/TIME OF EXAM: ??05/18/2023 1:14 AM, LOCATION ??[facility] INDICATION: M79.89: Arm swelling ADDITIONAL CLINICAL INFORMATION: Ordering Provider Reason For Exam: ??cellulitis at PICC line site TECHNIQUE: CT of the right humerus was performed subsequent to the uneventful administration of approximately 70 mL of Isovue-370 contrast utilizing standard protocol. Coronal and sagittal reconstructions were subsequently obtained. CT dose reduction technique was used, including Automated Exposure Control. IV CONTRAST: IOPAMIDOL 76 % IV SOLN:125 mL FINDINGS: There is diffuse subcutaneous stranding throughout the imaged upper arm and chest wall likely secondary to volume overload status in the setting of heart failure. No focal fluid collections identified to suggest abscess. A right upper extremity PICC is in place, likely within the brachial vein. Procedure Note Sorin Veronica MD - 05/18/2023 PROCEDURE: CT HUMERUS RIGHT W CONTRAST, DATE/TIME OF EXAM: 31:14 AM, LOCATION [facility] INDICATION: M79.89: Arm swelling ADDITIONAL CLINICAL INFORMATION: Ordering Provider Reason For Exam: cellulitis at PICC line site TECHNIQUE: CT of the right humerus was performed subsequent to the uneventful administration of approximately 70 mL of Isovue-370 contrast utilizing standard protocol. Coronal and sagittal reconstructions weresubsequently obtained. CT dose reduction technique was used, including Automated ExposureControl. IV CONTRAST: IOPAMIDOL 76 % IV SOLN:125 mL FINDINGS: There is diffuse subcutaneous stranding throughout the imaged upper miguel angel chest wall likely secondary to volume overload status in the setting of heart failure. No focal fluid collections identified to suggest abscess. A right upper extremity PICC is in place, likely within the brachialvein. IMPRESSION: 1.Diffuse subcutaneous stranding throughout the imaged upper arm andchest wall is likely secondary to volume overload status in the setting ofheart failure, less likely cellulitis. 2.No focal fluid collections identified to suggest abscess. > Dictated by Robert Woodruff MD (vice president marketing & development). Sorin Kim have personally reviewed and interpreted this examination/study. > Interpreting Provider: Sorin Veronica on 05/18/2023 1:39 PM [address]so Jasmine MD CT ORDERABLES * CT ANGIO CHEST PULM EMBOLISM (05/18/2023 1:14 AM CDT) Anatomical Region Laterality Modality Chest Computed Tomogra phy 05/18/2023 1:12 AM CDT Impressions 05/18/2023 1:37 PM CDT Impression: 1.Significantly limited study to evaluate for pulmonary embolism secondary to bolus timing. No large main pulmonary artery or segmental pulmonary embolus identified. No right heart strain. 2.Right upper extremity approach PICC tip terminates near the location of the right atrioventricular junction. 3.Sequela of fluid overloaded state including pulmonary edema, moderate size bilateral pleural effusions, small to moderate-sized pericardial effusion, and diffuse body wall edema. 4.Cardiomegaly. > Dictated by Robert Woodruff MD (vice president marketing & development). Sorin Kim have personally reviewed and interpreted this examination/study. > Interpreting Provider: Sorin Veronica on 05/18/2023 1:37 PM Narrative 05/18/2023 1:37 PM CDT PROCEDURE: ??CT ANGIO CHEST PULM EMBOLISM, DATE/TIME OF EXAM: ??05/18/2023 1:14 AM, LOCATION ??[facility] INDICATION: R09.02: Hypoxia ADDITIONAL CLINICAL INFORMATION: Ordering Provider Reason For Exam: ??r/o PE Additional: ??32-year-old female with a history of heart failure presenting with shortness of breath for the past day. COMPARISON: CT chest without contrast from an outside institution via centricity dated 08/25/2022 TECHNIQUE: CT of the chest was performed following the uneventful administration of 75 mL of Isovue 370 intravenous contrast according to a pulmonary embolism protocol. Multiplanar reconstructions were created. MIP images and volume rendered 3-D images were also obtained. Findings: Study Quality This examination for the diagnosis of pulmonary embolism is inadequate secondary to bolus timing. Pulmonary Arteries: No large main pulmonary artery or segmental pulmonary embolus identified. Evaluation of peripheral subsegmental branches limited due to suboptimal contrast bolus timing. Thoracic Vasculature: No vascular abnormality is present. Lines/tubes: Right upper extremity approach PICC tip terminates at the right atrioventricular junction. Lower Neck and Axillae: Normal. Lungs: Diffuse groundglass and patchy consolidations with associated peribronchovascular thickening likely represents pulmonary edema. There are moderate bilateral pleural effusions. Bibasilar atelectasis also present. Heart and Pericardium: The heart is enlarged. There is a small to moderate-sized pericardial effusion which is increased in size from prior exam. Mediastinum and Jeannie: No enlarged lymph nodes are present. Diffuse stranding is likely secondary to fluid overload state. Bones and Chest Wall: Bone windows demonstrate no suspicious lytic or blastic lesions. The visible osseous structures are intact. Upper Abdomen: Diffuse subcutaneous soft tissue stranding is likely secondary to volume overloaded state. Within the limitations of a severely degraded study visualized upper abdominal viscera appear normal. Procedure Note Sorin Veronica MD - 05/18/2023 PROCEDURE: CT ANGIO CHEST PULM EMBOLISM, DATE/TIME OF EXAM: 05/18/2023 1:14 AM, LOCATION [facility] INDICATION: R09.02: Hypoxia ADDITIONAL CLINICAL INFORMATION: Ordering Provider Reason For Exam: r/o PE Additional: 32-year-old female with a history of heart failurepresenting with shortness of breath for the past day. COMPARISON: CT chest without contrast from an outside institution via centricitydated 08/25/2022 TECHNIQUE: CT of the chest was performed following the uneventful administration of 75 mL of Isovue 370 intravenous contrast according toa pulmonary embolism protocol. Multiplanar reconstructions were created.MIP images and volume rendered 3-D images were also obtained. Findings: Study Quality This examination for the diagnosis of pulmonary embolism is inadequate secondary to bolus timing. Pulmonary Arteries: No large main pulmonary artery or segmental pulmonary embolusidentified. Evaluation of peripheral subsegmental branches limited due to suboptimal contrast bolus timing. Thoracic Vasculature: No vascular abnormality is present. Lines/tubes: Right upper extremity approach PICC tip terminates at the right atrioventricular junction. Lower Neck and Axillae: Normal. Lungs: Diffuse groundglass and patchy consolidations with associated peribronchovascular thickening likely represents pulmonary edema. Thereare moderate bilateral pleural effusions. Bibasilar atelectasis alsopresent. Heart and Pericardium: The heart is enlarged. There is a small to moderate-sized pericardial effusion which is increased in size from prior exam. Mediastinum and Jeannie: No enlarged lymph nodes are present. Diffuse stranding is likelysecondary to fluid overload state. Bones and Chest Wall: Bone windows demonstrate no suspicious lytic or blastic lesions. The visible osseous structures are intact. Upper Abdomen: Diffuse subcutaneous soft tissue stranding is likely secondary to volume overloaded state. Within the limitations of a severely degraded study visualized upper abdominal viscera appear normal. Impression: 1.Significantly limited study to evaluate for pulmonary embolismsecondary to bolus timing. No large main pulmonary artery or segmental pulmonary embolus identified. No right heart strain. 2.Right upper extremity approach PICC tip terminates near the locationof the right atrioventricular junction. 3.Sequela of fluid overloaded state including pulmonary edema, moderate size bilateral pleural effusions, small to moderate-sized pericardial effusion, and diffuse body wall edema. 4.Cardiomegaly. > Dictated by Robert Woodruff MD (vice president marketing & development). I, Sorin Veronica have personally reviewed and interpreted this examination/study. > Interpreting Provider: Sorin Veronica on 05/18/2023 1:37 PM [address] Jasmine MD CT ORDERABLES * TROPONIN-I HIGH SENSITIVE REFLEX 1HOUR (05/17/2023 11:40 PM CDT) Troponin I High Sensitive 3 <=14 ng/L 05/18/2023 12:21 AM CDT [facility] Delta Troponin I HS 05/18/2023 12:21 AM CDT [facility] Comment:Delta value intentio josé miguel not calculated. Baseline to 1 hour specimen collection interval exceeded. Blood BLOOD SPECIMEN / Unknown Venipuncture / Unknown 05/17/2023 11:40 PM CDT 05/17/2023 11:40 PM CDT Alfonso Jasmine MD LAB - CHEMISTRY ORD ERABLES [facility] [address] [place] [address], [facility] [phone] * EKG 12-LEAD (05/17/2023 10:06 PM CDT) Only the most recent of4 resultswithin the time period is included. Ventricular Rate 90 BPM [facility] Atrial Rate 90 BPM [facility] P-R Interval 160 ms [facility] QRS Duration ms 80 ms [facility] Q-T Interval ms 370 ms [facility] QTC Calculation (Bezet) 452 ms [facility] Calculated P [place] 43 degrees [facility] Calculated R [place] 7 degrees [facility] Calculated T [place] 26 degrees [facility] Interpretation EKG NORMAL SINUS RHYTHM NORMAL ECG Confirmed by [facility] ([id number]) on 05/18/2023 11:42:30 AM [facility] 05/17/2023 10:0 6 PM CDT 05/18/2023 11:42 AM CDT Alfonso Jasmine MD ECG ORDERABLES [facility] * (ABNORMAL) BLOOD GASES SUZANNE + COOX PANEL (05/17/2023 10:06 PM CDT) Only the most recent of2 resultswithin the time period is included. pH Venous 7.39 7.32 - 7.42 pH 05/17/2023 10:12 PM CDT [facility] pO2 Venous 54(H) 35 - 40 mmHg 05/17/2023 10:12 PM CDT [facility] pCO2 Venous 46 40 - 50 mmHg 05/17/2023 10:12 PM CDT [facility] HCO3 Venous 27.8 20 - 30 mmol/L 05/17/2023 10:12 PM CDT [facility] Base Excess Venous 2.4(H) -2.0 - 2.0 mmol/L 05/17/2023 10:12 PM CDT [facility] Oxyhemoglobin Venous 80.0 % 05/03 10:12 PM CDT [facility] Deoxyhemoglobin (HHB) Venous % 17.1 % 05/17/2023 10:12 PM CDT [facility] Methemoglobin <0.8 0.0 - 2.0 % 05/17/2023 10:12 PM T [facility] Carboxyhemoglobin 2.9(H) 0.0 - 2.0 % 2022 10:12 PM CDT [facility] O2 Content Venous 10.3 Interpret within clinical context ml/dL 05/17/2023 10:12 PM T [facility] Hemoglobin by COOX 9.1(L) 12.0 - 15.6 g/dL 05/17/2023 10:12 PM T [facility] O2 Saturation Venous 82 >=70 % 05/03 10:12 PM T [facility] FI O2 Mixed Venous 21.0 % 2022 10:12 PM CDT [facility] Blood BLOOD SPECIMEN / Unknown Venipuncture / Unknown 05/17/2023 10:06 PM CDT 05/17/2023 10:11 PM CDT Narrative [facility] - 05/17/2023 10:12 PM CDT Carboxyhemoglobin Normal Concentration: Non-smokers: 0-2%; Smokers: 0-9%; Toxic: >20% Alfonso Jasmine MD LAB - BLOOD GASES O RDERABLES Performing Organization Address City/[facility]/ZIP Co de Phone Number [address] [address], [facility] [phone] * TROPONIN-I HIGH SENSITIVE BASELINE + 1HR (05/17/2023 9:51 PM CDT) Troponin I High Sensitive <3 <=14 ng/L 05/17/2023 10:27 PM CDT [facility] Blood BLOOD SPECIMEN / Unknown Venipuncture / Unknown 05/17/2023 9:51 PM CDT 05/17/2023 10:08 PM CDT Alfonso Jasmine MD LAB - CHEMISTRY ORD ERABLES [address] [address], [facility] [phone] * SARS-COV-2 (COVID-19) RAPID (05/09/2023 1:05 PM CDT) Pathologist [facility] [place] COVID-19 PCR Not detected Not detected 05/09/20 2:10 PM CDT [facility] Microbiology SPECIMEN FROM NASOPHARYNGEAL STRUCTURE / Unknown Collection / Unknown 05/09/2023 1:05 PM CDT 05/09/2023 1:25 PM CDT [facility] - 05/09/2023 2:10 PM CDT The [employer] Xpert Xpress SARS-COV-2 has been authorized by the Food and Drug Administration (FDA) under an Emergency Use Authorization (EUA). This test has been validated in accordance with the FDA's guidance document Policy for Diagnostic Testing in Laboratories Certified to perform High Complexity Testing under CLIA prior to Emergency Use Authorization for Coronavirus Disease-2019 during the Public Health Emergency issued on January 01, 2020. FDA independent review of this validation is pending. This test is only authorized for the duration of the time the declaration that circumstances exist justifying the authorization of emergency use of in vitro diagnostic tests for detection of SARS-COV-2 virus and/or diagnosis of COVID-19 infection under 564(b) (1) of the Act. 21 U.S.C. 360bbb-3 (b) (1), unless the authorization is terminated or revoked sooner. Fact Sheets for this EUA assay are available upon request. Joe Vargas MD LAB - MICROBIOLOG Y ORDERABLES [facility] [address] [place] [address], [facility] [phone] * C DIFFICILE GDH AG + TOXIN A+B (05/03/2023 2:38 AM CDT) [facility] C difficile GDH antigen & toxin A/B NEGATIVE NEGATIVE 05/03/2023 8:29 AM CDT [facility] MICROBIOLOGY Stool STOOL SPECIMEN / Unknown Collection / Unknown 05/03/2023 2:38 AM CDT 05/03/2023 3:09 AM CDT Narrative [facility] MICROBIOLOGY - 05/03/2023 8:29 AM CDT Negative for toxigenic C. difficile Harpreet Johnston MD LAB - MICROBIOLOGY O RDERABLES [facility] MICROBIOLOGY [address] [place], [place] [address], [facility] [phone] * MRI TIBIA FIBULA RIGHT WWO CONT (04/29/2023 7:29 AM CDT) Anatomical Region Laterality Modality Lower Extremity Magnetic Resonan ce 04/29/2023 8:45 AM CDT Impressions 04/29/2023 9:57 AM CDT IMPRESSION: 1.No evidence of osteomyelitis in the tibia and fibula. 2.Cellulitis and myositis of the right leg the level of the knee predominantly involving the posterior compartment muscles. 3.Partially seen osteomyelitis of the calcaneus and soft tissue abscess at the medial aspect of the ankle are better visualized on the prior MRI ankle dated 04/28/2023. The report was drafted by Dante Schultz MD (residential housekeeper) I, Arthur Avery MD have personally reviewed and interpreted this examination/study. > Interpreting Provider: Arthur Avery MD on 04/29/2023 9:57 AM Narrative 04/29/2023 9:57 AM CDT PROCEDURE: ??MRI TIBIA FIBULA RIGHT WWO CONT DATE/TIME OF EXAM: ??04/29/2023 7:30 AM CLINICAL INFORMATION: None relevant/not provided if blank. Indication: E11.621: 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, unspecified ulcer stage (CMS/HCC) L97.419: 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, unspecified ulcer stage (CMS/HCC) COMPARISON: MRI of the ankle dated 04/28/2023. TECHNIQUE: MRI of the right tibia/fibula was performed utilizing multiple pulse sequences in multiple planes before and after intravenous gadolinium contrast administration. CONTRAST: ?? GADOBUTROL 1 MMOL/ML IV SSM SO:10 mL FINDINGS: Bone marrow signal is normal in the tibia and fibula. There is a partially seen rim-enhancing fluid collection at the medial aspect of the ankle (series 20 image 30-35), consistent with patient's known soft tissue abscess. There is partially seen bone marrow T1 hypointense signal abnormality in the calcaneus, consistent with osteomyelitis which is better seen on the prior MRI of the ankle dated 04/28/2023. There is diffuse soft tissue edema consistent with cellulitis. There is also diffuse muscle enhancement in the leg predominantly the posterior compartment consistent with myositis. Procedure Note Arthur Avery MD - 04/29/2023 PROCEDURE: MRI TIBIA FIBULA RIGHT WWO CONT DATE/TIME OF EXAM: 04/29/2023 7:30 AM CLINICAL INFORMATION: None relevant/not provided if blank. Indication: E11.621: 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, unspecified ulcer stage (CMS/HCC) L97.419: 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, unspecified ulcer stage (CMS/HCC) COMPARISON: MRI of the ankle dated 04/28/2023. TECHNIQUE: MRI of the right tibia/fibula was performed utilizing multiple pulse sequences in multiple planes before and after intravenous gadolinium contrast administration. CONTRAST: GADOBUTROL 1 MMOL/ML IV SSM SO:10 mL FINDINGS: Bone marrow signal is normal in the tibia and fibula. There is apartially seen rim-enhancing fluid collection at the medial aspect of the ankle (series 20 image 30-35), consistent with patient's known soft tissue abscess. There is partially seen bone marrow T1 hypointense signal abnormality in the calcaneus, consistent with osteomyelitis which isbetter seen on the prior MRI of the ankle dated 04/28/2023. There is diffusesoft tissue edema consistent with cellulitis. There is also diffuse muscle enhancement in the leg predominantly the posterior compartmentconsistent with myositis. IMPRESSION: 1.No evidence of osteomyelitis in the tibia and fibula. 2.Cellulitis and myositis of the right leg the level of the knee predominantly involving the posterior compartment muscles. 3.Partially seen osteomyelitis of the calcaneus and soft tissue abscessat the medial aspect of the ankle are better visualized on the prior MRIankle dated 04/28/2023. The report was drafted by Dante Schultz MD (residential housekeeper) Arthur Kim MD have personally reviewed and interpreted this examination/study. > Interpreting Provider: Arthur Avery MD on 04/29/2023 9:57 AM Sameer Navarro MD MR ORDERABLES * VAS ARTERIAL ANKLE ARM INDEX (04/28/2023 11:16 AM CDT) Anatomical Region Laterality Modality Ankle / Foot, Upper Extremity In travascular Ultrasound 04/28/2023 10:4 5 AM CDT Narrative Procedure Note Shirley Desai MD - 04/28/2023 Sameer Navarro MD VASCULAR LAB ORDERAB LES * MRI FOOT RIGHT WWO CONTRAST (04/28/2023 5:57 AM CDT) Anatomical Region Laterality Modality Ankle / Foot Magnetic Resonan ce 04/28/2023 7:35 AM CDT Impressions 04/28/2023 9:35 AM CDT IMPRESSION: 1.Bone marrow signal abnormality involving the most of the calcaneus associated soft tissue edema and large amount of soft tissue gas, consistent with osteomyelitis. 2.Bone marrow edema in the fifth digit metatarsal. 3.A 2.6 x 2.8 x 4.9 cm rim-enhancing fluid collection at the medial aspect of the ankle, consistent with abscess. The process extends posteriorly and laterally to the lateral aspect of the calcaneus with associated soft tissue gas and ulceration of the heel. 4.Diffuse myositis of the ankle and foot with tenosynovitis of the peroneus brevis. The report was drafted by Dante Schultz MD (residential housekeeper) Arthur Kim MD have personally reviewed and interpreted this examination/study. > Interpreting Provider: Arthur Avery MD on 04/28/2023 9:35 AM Narrative 04/28/2023 9:35 AM CDT PROCEDURE: ??MRI ANKLE RIGHT WWO CONTRAST, MRI FOOT RIGHT WWO CONTRAST DATE/TIME OF EXAM: ??04/28/2023 5:48 AM CLINICAL INFORMATION: None relevant/not provided if blank. Indication: E11.621: 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, unspecified ulcer stage (CMS/HCC) L97.419: 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, unspecified ulcer stage (CMS/HCC) COMPARISON: Radiograph of the right foot dated 04/26/2023. TECHNIQUE: Multiplanar, multisequence imaging of the right ankle and right foot was performed with and without 10 mL of Gadavist IV contrast as per departmental protocol. FINDINGS: Right ankle: The bone marrow signal is normal in the distal tibia, distal fibula and talus. There is a 2.6 x 2.8 x 4.9 cm rim-enhancing fluid collection at the medial aspect of the ankle (series 12 image 15 and series 14 image 8), consistent with abscess. There is extension of the purulence posteriorly to the lateral aspect of the calcaneus with a soft tissue ulcer of the heel with soft tissue gas. There is myositis and cellulitis of the ankle. Right foot: There is T1 hypointense and T2 hyperintense bone marrow signal abnormality involving the most of the calcaneus with associated soft edema and large amount of soft tissue gas (series 11 image 21), consistent with osteomyelitis. There is mild T2 hyperintense bone marrow signal abnormality in the mid shaft of the fifth digit metatarsal (series 4 image 5) without T1 signal changes which may represent bone marrow edema. Diffuse soft tissue edema is present with enhancement. There is diffuse muscle edema of the intrinsic foot muscles with enhancement. There is tenosynovitis of the peroneus brevis tendon. Procedure Note Arthur Avery MD - 04/28/2023 PROCEDURE: MRI ANKLE RIGHT WWO CONTRAST, MRI FOOT RIGHT WWO CONTRAST DATE/TIME OF EXAM: 04/28/2023 5:48 AM CLINICAL INFORMATION: None relevant/not provided if blank. Indication: E11.621: 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, unspecified ulcer stage (CMS/HCC) L97.419: 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, unspecified ulcer stage (CMS/HCC) COMPARISON: Radiograph of the right foot dated 04/26/2023. TECHNIQUE: Multiplanar, multisequence imaging of the right ankle andright foot was performed with and without 10 mL of Gadavist IV contrast as per departmental protocol. FINDINGS: Right ankle: The bone marrow signal is normal in the distal tibia, distal fibula and talus. There is a 2.6 x 2.8 x 4.9 cm rim-enhancing fluid collection atthe medial aspect of the ankle (series 12 image 15 and series 14 image 8), consistent with abscess. There is extension of the purulence posteriorlyto the lateral aspect of the calcaneus with a soft tissue ulcer of the heel with soft tissue gas. There is myositis and cellulitis of the ankle. Right foot: There is T1 hypointense and T2 hyperintense bone marrow signalabnormality involving the most of the calcaneus with associated soft edema and large amount of soft tissue gas (series 11 image 21), consistent with osteomyelitis. There is mild T2 hyperintense bone marrow signal abnormality in the mid shaft of the fifth digit metatarsal (series 4 image 5) without T1 signal changes which may represent bone marrow edema. Diffuse soft tissue edema is present with enhancement. There is diffuse muscle edema of the intrinsic foot muscles with enhancement. There is tenosynovitis of the peroneus brevis tendon. IMPRESSION: 1.Bone marrow signal abnormality involving the most of the calcaneus associated soft tissue edema and large amount of soft tissue gas, consistent with osteomyelitis. 2.Bone marrow edema in the fifth digit metatarsal. 3.A 2.6 x 2.8 x 4.9 cm rim-enhancing fluid collection at the medialaspect of the ankle, consistent with abscess. The process extends posteriorlyand laterally to the lateral aspect of the calcaneus with associated soft tissue gas and ulceration of the heel. 4.Diffuse myositis of the ankle and foot with tenosynovitis of theperoneus brevis. The report was drafted by Dante Schultz MD (residential housekeeper) I, Arthur Avery MD have personally reviewed and interpreted this examination/study. > Interpreting Provider: Arthur Avery MD on 04/28/2023 9:35 AM Sameer Navarro MD MR ORDERABLES * MRI ANKLE RIGHT WWO CONTRAST (04/28/2023 5:48 AM CDT) Anatomical Region Laterality Modality Ankle / Foot Magnetic Resonan ce 04/28/2023 7:35 AM CDT Impressions 04/28/2023 9:35 AM CDT IMPRESSION: 1.Bone marrow signal abnormality involving the most of the calcaneus associated soft tissue edema and large amount of soft tissue gas, consistent with osteomyelitis. 2.Bone marrow edema in the fifth digit metatarsal. 3.A 2.6 x 2.8 x 4.9 cm rim-enhancing fluid collection at the medial aspect of the ankle, consistent with abscess. The process extends posteriorly and laterally to the lateral aspect of the calcaneus with associated soft tissue gas and ulceration of the heel. 4.Diffuse myositis of the ankle and foot with tenosynovitis of the peroneus brevis. The report was drafted by Dante Schultz MD (residential housekeeper) I, Arthur Avery MD have personally reviewed and interpreted this examination/study. > Interpreting Provider: Arthur Avery MD on 04/28/2023 9:35 AM Narrative 04/28/2023 9:35 AM CDT PROCEDURE: ??MRI ANKLE RIGHT WWO CONTRAST, MRI FOOT RIGHT WWO CONTRAST DATE/TIME OF EXAM: ??04/28/2023 5:48 AM CLINICAL INFORMATION: None relevant/not provided if blank. Indication: E11.621: 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, unspecified ulcer stage (CMS/HCC) L97.419: 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, unspecified ulcer stage (CMS/HCC) COMPARISON: Radiograph of the right foot dated 04/26/2023. TECHNIQUE: Multiplanar, multisequence imaging of the right ankle and right foot was performed with and without 10 mL of Gadavist IV contrast as per departmental protocol. FINDINGS: Right ankle: The bone marrow signal is normal in the distal tibia, distal fibula and talus. There is a 2.6 x 2.8 x 4.9 cm rim-enhancing fluid collection at the medial aspect of the ankle (series 12 image 15 and series 14 image 8), consistent with abscess. There is extension of the purulence posteriorly to the lateral aspect of the calcaneus with a soft tissue ulcer of the heel with soft tissue gas. There is myositis and cellulitis of the ankle. Right foot: There is T1 hypointense and T2 hyperintense bone marrow signal abnormality involving the most of the calcaneus with associated soft edema and large amount of soft tissue gas (series 11 image 21), consistent with osteomyelitis. There is mild T2 hyperintense bone marrow signal abnormality in the mid shaft of the fifth digit metatarsal (series 4 image 5) without T1 signal changes which may represent bone marrow edema. Diffuse soft tissue edema is present with enhancement. There is diffuse muscle edema of the intrinsic foot muscles with enhancement. There is tenosynovitis of the peroneus brevis tendon. Procedure Note Arthur Avery MD - 04/28/2023 PROCEDURE: MRI ANKLE RIGHT WWO CONTRAST, MRI FOOT RIGHT WWO CONTRAST DATE/TIME OF EXAM: 04/28/2023 5:48 AM CLINICAL INFORMATION: None relevant/not provided if blank. Indication: E11.621: 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, unspecified ulcer stage (CMS/HCC) L97.419: 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, unspecified ulcer stage (CMS/HCC) COMPARISON: Radiograph of the right foot dated 04/26/2023. TECHNIQUE: Multiplanar, multisequence imaging of the right ankle andright foot was performed with and without 10 mL of Gadavist IV contrast as per departmental protocol. FINDINGS: Right ankle: The bone marrow signal is normal in the distal tibia, distal fibula and talus. There is a 2.6 x 2.8 x 4.9 cm rim-enhancing fluid collection atthe medial aspect of the ankle (series 12 image 15 and series 14 image 8), consistent with abscess. There is extension of the purulence posteriorlyto the lateral aspect of the calcaneus with a soft tissue ulcer of the heel with soft tissue gas. There is myositis and cellulitis of the ankle. Right foot: There is T1 hypointense and T2 hyperintense bone marrow signalabnormality involving the most of the calcaneus with associated soft edema and large amount of soft tissue gas (series 11 image 21), consistent with osteomyelitis. There is mild T2 hyperintense bone marrow signal abnormality in the mid shaft of the fifth digit metatarsal (series 4 image 5) without T1 signal changes which may represent bone marrow edema. Diffuse soft tissue edema is present with enhancement. There is diffuse muscle edema of the intrinsic foot muscles with enhancement. There is tenosynovitis of the peroneus brevis tendon. IMPRESSION: 1.Bone marrow signal abnormality involving the most of the calcaneus associated soft tissue edema and large amount of soft tissue gas, consistent with osteomyelitis. 2.Bone marrow edema in the fifth digit metatarsal. 3.A 2.6 x 2.8 x 4.9 cm rim-enhancing fluid collection at the medialaspect of the ankle, consistent with abscess. The process extends posteriorlyand laterally to the lateral aspect of the calcaneus with associated soft tissue gas and ulceration of the heel. 4.Diffuse myositis of the ankle and foot with tenosynovitis of theperoneus brevis. The report was drafted by Dante Schultz MD (residential housekeeper) I, Arthur Avery MD have personally reviewed and interpreted this examination/study. > Interpreting Provider: Arthur Avery MD on 04/28/2023 9:35 AM Sameer Navarro MD MR ORDERABLES * RESPIRATORY PANEL WITH SARS-COV-2 BY PCR ([facility]) (04/27/2023 11:48 AM CDT) Adenovirus PCR Not detected Not detected 04/27/2023 4:27 PM CDT [facility] MICROBIOLOGY Coronavirus 229E PCR Not detected Not detected 04/27/2023 4:27 PM CDT [facility] MICROBIOLOGY Coronavirus HKU1 PCR Not detected Not detected 04/27/2023 4:27 PM CDT [facility] MICROBIOLOGY Coronavirus NL63 PCR Not detected Not detected 04/27/2023 4:27 PM CDT [facility] MICROBIOLOGY Coronavirus OC43 PCR Not detected Not detected 04/27/2023 4:27 PM CDT [facility] MICROBIOLOGY COVID-19 PCR Not detected Not detected 04/27/2023 4:27 PM CDT [facility] MICROBIOLOGY Human Metapneumovirus PCR Not detected Not detected 04/27/2023 4:27 PM CDT [facility] MICROBIOLOGY Human Rhinovirus/Enterov irus PCR Not detected Not detected 04/27/2023 4:27 PM CDT [facility] MICROBIOLOGY Influenza A PCR Not detected Not detected 04/27/2023 4:27 PM CDT [facility] MICROBIOLOGY Influenza B PCR Not detected Not detected 04/27/2023 4:27 PM CDT [facility] MICROBIOLOGY Parainfluenza Virus 1 PCR Not detected Not detected 04/27/2023 4:27 PM CDT [facility] MICROBIOLOGY Parainfluenza Virus 2 PCR Not detected Not detected 04/27/2023 4:27 PM CDT [facility] MICROBIOLOGY Parainfluenza Virus 3 PCR Not detected Not detected 04/27/2023 4:27 PM CDT [facility] MICROBIOLOGY Parainfluenza Virus 4 PCR Not detected Not detected 04/27/2023 4:27 PM CDT [facility] MICROBIOLOGY Respiratory Syncytial Virus PCR Not detected Not detected 04/27/2023 4:27 PM CDT [facility] MICROBIOLOGY Bordetella parapertussis PCR Not detected Not detected 04/27/2023 4:27 PM CDT [facility] MICROBIOLOGY Bordetella pertussis PCR Not detected Not detected 04/27/2023 4:27 PM CDT [facility] MICROBIOLOGY Chlamydia pneumoniae PCR Not detected Not detected 04/27/2023 4:27 PM CDT [facility] MICROBIOLOGY Mycoplasma pneumoniae PCR Not detected Not detected 04/27/2023 4:27 PM CDT [facility] MICROBIOLOGY Microbiology SPECIMEN FROM NASOPHARYNGEAL STRUCTURE / Unknown Collection / Unknown 04/27/2023 11:48 AM CDT 04/27/2023 11:58 AM CDT [facility] MICROBIOLOGY - 04/27/2023 4:27 PM CDT This nucleic amplification assay has received FDA authorization via the [employer]. Sameer Navarro MD LAB - MICROBIOLOGY O RDERABLES [facility] MICROBIOLOGY [address] [place], [place] [address], [facility] [phone] * (ABNORMAL) CK BLOOD (04/27/2023 7:29 AM CDT) Pathologist [facility] [place] CK Total 1,624(H) 30 - 200 U/L 04/27/2023 8:08 AM CDT [facility] Blood BLOOD SPECIMEN / Unknown Lab Venipuncture / Unknown 04/27/2023 7:29 AM CDT 04/27/2023 7:40 AM CDT Sameer Navarro MD LAB - CHEMISTRY [facility] [address] [place] [address], [facility] [phone] * XR FOOT RIGHT 2VW (04/26/2023 1:47 PM CDT) Anatomical Region Laterality Modality Ankle / Foot Radiographic Nissa ging 04/26/2023 2:42 PM CDT Narrative 04/26/2023 5:41 PM CDT PROCEDURE: ??XR FOOT RIGHT 2VW, DATE/TIME OF EXAM: ??04/26/2023 1:47 PM, LOCATION ??[facility] INDICATION: E11.621: 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, unspecified ulcer stage (CMS/HCC) L97.419: 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, unspecified ulcer stage (CMS/HCC) ADDITIONAL CLINICAL INFORMATION: Ordering Provider Reason For Exam: ??evaluation of right foot ulcer, osteomyelitis COMPARISON: None. FINDINGS: There is radiopaque bandage/dressing material overlying the heel partly obscuring visualization of the soft tissues and bone in this region. There is lucency in the soft tissues in this area compatible with gas. There is cortical erosion and fragmentation at the plantar-posterior aspect of calcaneal tuberosity compatible with osteomyelitis. Diffuse soft tissue swelling. Report dictated by Golden Kiser DO (vice president marketing & development) 04/26/2023 2:42 PM. I, Xander De Guzman MD have personally reviewed and interpreted this examination/study. > Interpreting Provider: Xander De Guzman MD on 04/26/2023 5:41 PM Procedure Note Xander De Guzman MD - 04/26/2023 PROCEDURE: XR FOOT RIGHT 2VW, DATE/TIME OF EXAM: 04/26/2023 1:47 PM, LOCATION [facility] INDICATION: E11.621: 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, unspecified ulcer stage (CMS/HCC) L97.419: 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, unspecified ulcer stage (CMS/HCC) ADDITIONAL CLINICAL INFORMATION: Ordering Provider Reason For Exam: evaluation of right foot ulcer, osteomyelitis COMPARISON: None. FINDINGS: There is radiopaque bandage/dressing material overlying the heel partly obscuring visualization of the soft tissues and bone in this region.There is lucency in the soft tissues in this area compatible with gas. Thereis cortical erosion and fragmentation at the plantar-posterior aspect of calcaneal tuberosity compatible with osteomyelitis. Diffuse soft tissue swelling. Report dictated by Golden Kiser DO (vice president marketing & development) 32:42 PM. I, Xander De Guzman MD have personally reviewed and interpreted this examination/study. > Interpreting Provider: Xander De Guzman MD on 04/26/2023 5:41 PM Sameer Navarro MD DIAGNOSTIC IMAGING O RDERABLES * PREPARE (CROSSMATCH) RBC UNIT(S), 2 Units (12/07/2022 1:17 AM PRESSER MACHINE) Only the most recent of2 resultswithin the time period is included. Unit Description AS1 LR PRBC [facility] Unit ABO A [facility] Unit Rh POS [facility] Product Number R44 [facility] Unit Donor # [id number] [facility] Unit Status released [facility] Product Code [id number] [facility] Blood Type Barcode 6200 [facility] Expiration Date S BLOOD BANK LAB Unit Description AS1 LR PRBC [facility] Unit ABO A [facility] Unit Rh POS [facility] Product Number R02 [facility] Unit Donor # [id number] [facility] Unit Status released [facility] Product Code [id number] [facility] Blood Type Barcode 6200 [facility] Expiration Date S BLOOD BANK LAB Blood Bank BLOOD SPECIMEN / Unknown 12/03/2022 2:48 AM PRESSER MACHINE Graeme Rodgers MD LAB - BLOOD BANK O RDERABLES [facility] [address] [place] [address], [facility] [phone] * BACTERIAL VAGINOSIS RAPID TEST (12/06/2022 6:20 PM PRESSER MACHINE) Pathologist [facility] [place] Bacterial Vaginosis Rapid Negative Negative 12/06/2022 7:00 PM PRESSER MACHINE [facility] Microbiology VAGINAL SWAB / Unknown Collection / Unknown 12/06/2022 6:20 PM PRESSER MACHINE 12/06/2022 6:31 PM PRESSER MACHINE Leigh SIBLEY LAB - MICROBIOLOGY O RDERABLES Performing Organization Address [facility] Co de Phone Number [facility] [address] [place] [address], [facility] [phone] * PATHOLOGY TISSUE (12/05/2022 3:17 PM PRESSER MACHINE) Only the most recent of2 resultswithin the time period is included. Pathologist [facility] [place] Case Report Surgical Pathology Report ? Case: [id number] ? Authorizing Provider: ??Graeme Rodgers MD ?Collected: ? 12/05/2022 03:17 PM ? Ordering Location: ? [facility] ?Received: ?12/06/2022 07:49 AM ? Pathologist: ? Alix Hope MD ? Specimen: ?Amputation Leg AK, Left above the knee amputation ? 12/10/2022 1:45 PM PRESSER MACHINE [facility] Final Diagnosis Leg, left, [id number] amputation (A): - Viable bone and soft tissue margins - No necrosis or osteomyelitis at prior amputation site - Arteries free of significant atherosclerosis 12/10/2022 1:45 PM [facility] Microscopic Description and Comment Microscopic examination substantiates the final diagnosis. 12/10/2022 1:45 PM [facility] Clinical History Patient is a 32-year-old woman with poorly controlled diabetes who initially presented with necrotizing fasciitis of left foot with amputation 12/02/2022. 12/10/2022 1:45 PM [facility] Gross Description Requisition and a specimen are labeled with the patient's name,Leeroy Canales. Received in formalin, specimen A .is a left above the knee amputation specimen which has been resected through the femur. Specimen includes previous disarticulation at the tibia with absence of foot. The specimen measures 47 cm from soft tissue surgical margin to previous amputation site. A 5.5 cm in length stump of femur extends from the soft surgical margin. The surgical margin appears grossly viable. The anterior and posterior tibial arteries are are patent and mildly calcified. Farm Marketer sections are submitted as follows: A1- sales representative door to door shave of soft tissue and skin from the surgical margin closest to lesion A2-bone marrow margin A3-previous bony disarticulated A4-previous soft tissue margin A5-posterior vessels A6-anterior vessels MA 12/10/2022 1:45 PM [facility] Disclaimer The performance characteristics of all immunohistochemical and indirect immunofluorescence stains (if any) cited in this report were determined by the Histopathology Laboratory of [facility]. Some of these tests were developed by our own laboratory and have not been cleared or approved by the US Food and Drug Administration. The FDA does not require this test to go through premarket FDA review. These tests are used for clinical purposes. They should not be regarded as investigational or for research. This laboratory is certified under the Clinical Laboratory Improvement Amendments (CLIA) as qualified to perform high complexity clinical laboratory testing. This case has been personally reviewed and interpreted by the attending (teaching) pathologist. 12/10/2022 1:45 PM [facility] Embedded Images 12/10/2022 1:45 PM [facility] Gross only SPECIMEN OBTAINED BY AMPUTATION / Unknown 12/05/2022 3:17 PM PRESSER MACHINE 12/06/2022 7:49 AM PRESSER MACHINE Comment:Pre-op diagnosis: Gangrene Graeme Rodgers MD LAB - PATHOLOGY/CY TOLOGY ORDERABLES [facility] [address] [place] [address], [facility] [phone] * ETT LINE PERFORMABLE (12/05/2022 2:36 PM PRESSER MACHINE) Narrative Ghassan Rene MD - 12/05/2022 2:36 PM PRESSER MACHINE Velasquez Tomas, DO ? 12/05/2022 ??3:27 PM Endotracheal Tube Placement: ? Patient Location: OR. Intubation Event Date/Time: ??12/05/2022 2:36 PM Procedure: intubation ([id number]). Procedure Section: ?? Sedation: under general anesthesia. Indications for Airway Management: ??anesthesia Induction: standard IV Patient Position: ??sniffing, ramp/troop pillow and supine Mask Ventilation: easy. Blade Type: other - plese comment Laryngoscopy View: grade 1 (full cords) Intubation Adjuncts: fiberoptic Tube: endotracheal tube Placement: oral Tube type: cuff - inflated Tube Size (MM): 7.5 Depth of Insertion (CM): 21 Measured From: lips Cuff volume (mL): ??8 Cuff Inflated With: air Number of Attempts: 1. Placement Verified By: direct visualization, bilateral breath sounds, chest auscultation and CO2 monitor Tube secured with: ??adhesive tape. Dentition unchanged? ??Yes Difficult Airway? ??No. Procedure Start Time: 12/05/2022 2:36 PM. Staff Section ? Anesthesia Provider: Velasquez Tomas, DO, Performed the procedure ? Provider #1: Chanda Hoffman MD. Additional Comments: Following IV induction of anesthesia a size 5 I-gel was inserted and a 7.5 ETT was intruduced through the I-gel. A flexible bronchoscope was then passed through the ETT and inserted until the jennifer was visualized, at which point the ETT was inserted down over the bronchoscope as a smart stylet and position above the jennifer was confirmed. The I-gel was left in place as a bite block. . Ghassan Rene MD GENERAL ANESTHESIA O RDERABLES * HCG URINE QUALITATIVE - POCT (IP) INTERFACED (12/05/2022 1:46 PM PRESSER MACHINE) HCG Qual Urine Negative Negative 12/05/2022 1:52 PM PRESSER MACHINE [facility] Urine URINE / Unknown 12/05/2022 1 :46 PM PRESSER MACHINE 12/05/2022 1:52 PM PRESSER MACHINE Rafa Patel MD LAB - POINT OF CARE ORDERABLES [address] [address], [place] [phone] * UREA NITROGEN URINE RANDOM (12/03/2022 4:59 PM PRESSER MACHINE) Urea Nitrogen Random Urine 397 Not Established mg/dL 12/03/2022 5:59 PM PRESSER MACHINE [facility] Urine URINE SPECIMEN OBTAINED BY CLEAN CATCH PROCEDURE / Unknown Collection / Unknown 12/03/2022 4:59 PM PRESSER MACHINE 12/03/2022 5:14 PM PRESSER MACHINE Graeme Rodgers MD LAB - URINE CHEMIS TRY ORDERABLES [address] [address], [place] [phone] * LYTES (NA K CL) URINE RANDOM PANEL (12/03/2022 4:59 PM PRESSER MACHINE) Sodium Urine <20 Not Established mmol/L 12/03/2022 6:01 PM PRESSER MACHINE [facility] Potassium Urine 26.9 Not Established mmol/L 12/03/2022 6:01 PM [facility] Chloride Random Urine <20 Not Established mmol/L 12/03/2022 6:01 PM PRESSER MACHINE [facility] Urine URINE SPECIMEN OBTAINED BY CLEAN CATCH PROCEDURE / Unknown Collection / Unknown 12/03/2022 4:59 PM PRESSER MACHINE 12/03/2022 5:14 PM PRESSER MACHINE Himanshu Espino MD LAB - URINE CHEMISTR Y ORDERABLES Performing Organization Address [facility]/ZIP Co de Phone Number [address] [address], [place] [phone] * CREATININE URINE RANDOM (12/03/2022 4:59 PM PRESSER MACHINE) Creatinine Urine 227 Not Established mg/dL 12/03/2022 6:01 PM PRESSER MACHINE [facility] Urine URINE SPECIMEN OBTAINED BY CLEAN CATCH PROCEDURE / Unknown Collection / Unknown 12/03/2022 4:59 PM PRESSER MACHINE 12/03/2022 5:14 PM PRESSER MACHINE Himanshu Espino MD LAB - URINE CHEMISTR Y ORDERABLES Performing Organization Address [facility] Co de Phone Number [address] [address], [place] [phone] * (ABNORMAL) HEMOGLOBIN (12/03/2022 9:43 AM PRESSER MACHINE) Hemoglobin 8.2(L) 12.0 - 15.6 g/dL 12/03/2022 9:58 AM PRESSER MACHINE [facility] Blood BLOOD SPECIMEN / Unknown Venipuncture / Unknown 12/03/2022 9:43 AM PRESSER MACHINE 12/03/2022 9:47 AM PRESSER MACHINE Tommie Echevarria MD LAB - HEMATOLOGY ORD ERABLES Performing Organization Address [facility]/ZIP Co de Phone Number [address] [address], [place] [phone] * BLOOD TYPE VERIFICATION (12/03/2022 4:10 AM PRESSER MACHINE) ABO Rh A POS 12/03/2022 4:4 9 AM PRESSER MACHINE [facility] Blood Bank BLOOD SPECIMEN / Unknown Venipuncture / Unknown 12/03/2022 4:10 AM PRESSER MACHINE 12/03/2022 4:18 AM PRESSER MACHINE Gail Montero MD LAB - BLOOD BANK ORD ERABLES [facility] [address] [place] [address], [facility] [phone] * ETT LINE PERFORMABLE (12/02/2022 11:21 PM PRESSER MACHINE) Narrative Bryanna Alba MD - 12/02/2022 11:21 PM PRESSER MACHINE Bryanna Alba MD ? 12/02/2022 11:37 PM Endotracheal Tube Placement: ? Patient Location: OR. Intubation Event Date/Time: ??12/02/2022 11:21 PM Procedure: intubation (51862). Procedure Section: ?? Sedation: under general anesthesia. Indications for Airway Management: ??anesthesia Induction: rapid sequence Patient Position: ??sniffing Mask Ventilation: not attempted. Blade Type: Video Blade Size: 3 Laryngoscopy View: grade 1 (full cords) Intubation Adjuncts: stylet, cricoid pressure and video laryngoscope Tube: endotracheal tube Placement: oral Tube type: cuff - inflated Tube Size (MM): 7 Depth of Insertion (CM): 22 Measured From: teeth Cuff volume (mL): ??10 Cuff Inflated With: air Number of Attempts: 1. Placement Verified By: direct visualization, bilateral breath sounds, chest auscultation and CO2 monitor Tube secured with: ??adhesive tape. Dentition unchanged? ??Yes Difficult Airway? ??No. Procedure Start Time: 12/02/2022 11:21 PM. Staff Section ? Anesthesia Provider: Eladio Hidalgo MD, Performed the procedure Additional Comments: Inserted by ENEDELIA Johnson, under direct supervision. Eladio Hidalgo MD GENERAL ANESTHESIA O RDERABLES * (ABNORMAL) LIPID PROFILE (12/02/2022 8:33 PM PRESSER MACHINE) Only the most recent of2 resultswithin the time period is included. Cholesterol Total 111 <200 mg/dL 12/02/2022 8:55 PM PRESSER MACHINE [facility] HDL 8(L) >40 mg/dL 12/02/2022 8:55 PM PRESSER MACHINE [facility] Comment: ATP III Classification of HDL Cholesterol: ? <40 mg/dL: ??Considered a major risk factor. ? >60 mg/dL: ??Considered a negative risk factor. ? LDL Calculated 74 <100 mg/dL 12/02/2022 8:55 PM [facility] Comment: ATP III Classification of LDL Cholesterol: ?<100 mg/dL: ??Optimal ? 100 - 129 mg/dL: ??Near Optimal/Above Optimal ? 130 - 159 mg/dL: ??Borderline High ? 160 - 189 mg/dL: ??High ?>190 mg/dL: ??Very High ? Triglycerides 143 <150 mg/dL 12/02/2022 8:55 PM [facility] Comment: ATP III Classification of Triglycerides: ?<150 mg/dL: ??Normal ? 150 - 199 mg/dL: ??Borderline High ? 200 - 400 mg/dL: ??High ?>500 mg/dL: ??Very High Blood BLOOD SPECIMEN / Unknown Venipuncture / Unknown 12/02/2022 8:33 PM PRESSER MACHINE 12/02/2022 8:42 PM PRESSER MACHINE Himanshu Espino MD LAB - CHEMISTRY DIVINA OLVERA Performing Organization Address [facility]/ZIP Co va Phone Number [address] [address], [facility] [phone] * LACTIC ACID BLOOD REFLEX TO REPEAT (12/02/2022 8:00 PM PRESSER MACHINE) Lactic Acid-Stat 0.9 <=2.0 mmol/L 12/02/2022 8:59 PM PRESSER MACHINE [facility] Blood BLOOD SPECIMEN / Unknown Venipuncture / Unknown 12/02/2022 8:00 PM PRESSER MACHINE 12/02/2022 8:40 PM PRESSER MACHINE Trisha Rodríguez PA-C LAB - CHEMISTRY ORDE RABLES [facility] [address] [place] [address], [facility] [phone] * XR FOOT LEFT 3VW OR MORE (12/02/2022 7:56 PM PRESSER MACHINE) Anatomical Region Laterality Modality Ankle / Foot Radiographic Nissa ging 12/02/2022 7:40 PM PRESSER MACHINE Narrative 12/03/2022 2:25 PM PRESSER MACHINE PROCEDURE: ??XR FOOT LEFT 3VW OR MORE, DATE/TIME OF EXAM: ??12/02/2022 6:48 PM, LOCATION ??[facility] INDICATION: M79.89: Swelling of left foot ADDITIONAL CLINICAL INFORMATION: Ordering Provider Reason For Exam: ??OM COMPARISON: None. FINDINGS/IMPRESSION: There is diffuse soft tissue swelling. There is extensive soft tissue gas, greatest in the forefoot, concerning for gas-forming soft tissue infection such as necrotizing fasciitis. There are several punctate radiopacities projecting over the soft tissues which may represent foreign bodies and/or external artifact, for example projecting over the third toe distal interphalangeal joint and between the fourth and fifth toes on the AP view. There is lucency in the cortex of the fifth metatarsal base which could be artifactual due to the overlying soft tissue gas or a fracture or erosion associated with osteomyelitis. Report dictated by Dante Schultz MD (vice president marketing & development). I, Xander De Guzman MD have personally reviewed and interpreted this examination/study. > Interpreting Provider: Xander De Guzman MD on 12/03/2022 2:25 PM Procedure Note Xander De Guzman MD - 12/03/2022 PROCEDURE: XR FOOT LEFT 3VW OR MORE, DATE/TIME OF EXAM: 12/02/2022 6:48 PM, LOCATION [facility] INDICATION: M79.89: Swelling of left foot ADDITIONAL CLINICAL INFORMATION: Ordering Provider Reason For Exam: OM COMPARISON: None. FINDINGS/IMPRESSION: There is diffuse soft tissue swelling. There is extensive soft tissuegas, greatest in the forefoot, concerning for gas-forming soft tissueinfection such as necrotizing fasciitis. There are several punctate radiopacities projecting over the soft tissues which may represent foreign bodiesand/or external artifact, for example projecting over the third toe distal interphalangeal joint and between the fourth and fifth toes on the APview. There is lucency in the cortex of the fifth metatarsal base which couldbe artifactual due to the overlying soft tissue gas or a fracture orerosion associated with osteomyelitis. Report dictated by Dante Schultz MD (vice president marketing & development). IXander MD have personally reviewed and interpreted this examination/study. > Interpreting Provider: Xander De Guzman MD on 12/03/2022 2:25 PM Trisha Rodríguez PA-C DIAGNOSTIC IMAGING O RDERABLES * TROPONIN I (12/02/2022 7:55 PM PRESSER MACHINE) Troponin I 0.023 <0.032 ng/mL 12/02/2022 8:30 PM PRESSER MACHINE [facility] Blood BLOOD SPECIMEN / Unknown Venipuncture / Unknown 12/02/2022 7:55 PM PRESSER MACHINE 12/02/2022 8:12 PM PRESSER MACHINE Trisha Rodríguez PA-C LAB - CHEMISTRY DIVINA OLVERA Performing Organization Address [facility]/State/ZIP Co de Phone Number [address] [address], [facility] [phone] * XR CHEST 2VW (12/02/2022 7:31 PM PRESSER MACHINE) Anatomical Region Laterality Modality Chest Radiographic Nissa ging 12/02/2022 8:42 PM PRESSER MACHINE Impressions 12/03/2022 2:50 AM PRESSER MACHINE IMPRESSION: 1.Cardiomegaly with suggestion of mild pulmonary edema. 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 The report was drafted by Dante Schultz MD (residential housekeeper) Peter Kim MD, PhD have personally reviewed and interpreted this examination/study. > Interpreting Provider: Peter Donnelly MD, PhD on 12/03/2022 2:50 AM Narrative 12/03/2022 2:50 AM PRESSER MACHINE EXAM: XR CHEST 2VW DATE/TIME: 12/02/2022 7:31 PM LOCATION: ??[facility] HISTORY: R09.02: Hypoxia COMPARISON: None. FINDINGS: Lines/Tubes: None. Lungs: Bilateral perihilar ill-defined opacities with mild peribronchial wall thickening, suggestive mild pulmonary edema. No consolidation. Pleura: No pneumothorax or pleural effusion. Eventration of the right hemidiaphragm, suggestive of right phrenic nerve palsy. Mediastinum/Other: Enlarged cardiac silhouette. Unremarkable mediastinal silhouette Bones: Visible bony thorax is intact. Procedure Note Peter Donnelly MD - 12/03/2022 EXAM: XR CHEST 2VW DATE/TIME: 12/02/2022 7:31 PM LOCATION: [facility] HISTORY: R09.02: Hypoxia COMPARISON: None. FINDINGS: Lines/Tubes: None. Lungs: Bilateral perihilar ill-defined opacities with mild peribronchial wall thickening, suggestive mild pulmonary edema. No consolidation. Pleura: No pneumothorax or pleural effusion. Eventration of the right hemidiaphragm, suggestive of right phrenic nerve palsy. Mediastinum/Other: Enlarged cardiac silhouette. Unremarkable mediastinal silhouette Bones: Visible bony thorax is intact. IMPRESSION: 1.Cardiomegaly with suggestion of mild pulmonary edema. 2.Eventrated right hemidiaphragm suggestive of right phrenic nervepalsy. The report was drafted by Dante Schultz MD (residential housekeeper) I, Peter Donnelly MD, PhD have personally reviewed and interpreted this examination/study. > Interpreting Provider: Peter Donnelly MD, PhD on 12/03/2022 2:50 AM Trisha Rodríguez PA-C DIAGNOSTIC IMAGING O RDERABLES * CT CHEST WO CONTRAST (08/25/2022 8:12 AM CDT) Anatomical Region Laterality Modality Chest Computed Tomogra phy 08/25/2022 4:00 PM CDT Impressions 08/25/2022 4:13 PM CDT IMPRESSION: 1. ??Pleural effusions and bilateral lung opacities. ??The symmetric effusions favor a cardiogenic cause. ??However the lung opacities are not typical for vascular congestion and could be inflammatory/pneumonic in origin. ??It is also possible there may be pneumonia concurrent with heart failure. 2. ??Mild central adenopathy is most likely reactive. > Interpreting Provider: Adalgisa Schroeder MD on 08/25/2022 4:13 PM Narrative 08/25/2022 4:13 PM CDT PROCEDURE: ??CT CHEST WO CONTRAST, DATE/TIME OF EXAM: ??08/25/2022 8:13 AM, LOCATION ??[facility] INDICATION: I50.9: Heart failure, unspecified (CMS/HCC) ADDITIONAL CLINICAL INFORMATION: Ordering Provider Reason For Exam: Technologist Note: ??Hypoxia and vascular congestion. Additional: COMPARISON: Recent chest radiograph TECHNIQUE: CT of the chest was performed without intravenous contrast utilizing standard protocol. CT dose reduction technique was used, including Automated Exposure Control. FINDINGS: There are bilateral nearly symmetric moderate pleural effusions layering posteriorly. ??However within the lungs are multifocal patchy and hazy airspace opacities involving both the upper and lower lobes in both the central and peripheral portions of the lungs. ??Many of these opacities are centered around the bronchi and vasculature and overall are greater on the right. ??There is no septal thickening as is frequently seen with interstitial edema. The heart size is normal but there is small pericardial effusion. ??There are a few calcified plaques in the coronary arteries. ??The thoracic aorta is normal in size. ??Central mediastinal nodes are mildly enlarged up to 1.3 cm and most likely reactive. ??There is no axillary adenopathy. ??The visualized thyroid is normal. The visualized portions of the liver and spleen are unremarkable. ??There is third spacing of fluids in the subcutaneous tissues of the chest and upper abdomen. No significant bony findings. Procedure Note Adalgisa Schroeder MD - 08/25/2022 PROCEDURE: CT CHEST WO CONTRAST, DATE/TIME OF EXAM: 08/25/2022 8:13AM, LOCATION [facility] INDICATION: I50.9: Heart failure, unspecified (CMS/HCC) ADDITIONAL CLINICAL INFORMATION: Ordering Provider Reason For Exam: Technologist Note: Hypoxia and vascular congestion. Additional: COMPARISON: Recent chest radiograph TECHNIQUE: CT of the chest was performed without intravenous contrast utilizing standard protocol. CT dose reduction technique was used, including Automated ExposureControl. FINDINGS: There are bilateral nearly symmetric moderate pleural effusions layering posteriorly. However within the lungs are multifocal patchy and hazy airspace opacities involving both the upper and lower lobes in both the central and peripheral portions of the lungs. Many of these opacitiesare centered around the bronchi and vasculature and overall are greater onthe right. There is no septal thickening as is frequently seen with interstitial edema. The heart size is normal but there is small pericardial effusion. There are a few calcified plaques in the coronary arteries. The thoracicaorta is normal in size. Central mediastinal nodes are mildly enlarged up to1.3 cm and most likely reactive. There is no axillary adenopathy. The visualized thyroid is normal. The visualized portions of the liver and spleen are unremarkable. Thereis third spacing of fluids in the subcutaneous tissues of the chest andupper abdomen. No significant bony findings. IMPRESSION: 1. Pleural effusions and bilateral lung opacities. The symmetric effusions favor a cardiogenic cause. However the lung opacities are not typical for vascular congestion and could be inflammatory/pneumonic in origin. It is also possible there may be pneumonia concurrent withheart failure. 2. Mild central adenopathy is most likely reactive. > Interpreting Provider: Adalgisa Schroeder MD on 08/25/2022 4:13 PM Jimmy Jansen MD CT ORDERABLES * ECHOCARDIOGRAM 2D WITH DOPPLER (08/21/2022 3:15 PM CDT) 08/21/2022 3:15 PM CDT Narrative Procedure Note Himanshu Martin MD - 08/21/2022 [place] [address] Echocardiography Examination Transthoracic Name: LEEROY CANALES [facility]#: MR#: [id number] Admission Number: [id number] Study Date: 08/21/2022 Study Time: 04:00 PM Date Of : 1990 Age: 31 years Height: 67 in. (170.2 cm) Weight: 283 lbs. (128.37 kg) BSA: 2.34 m2 Gender: Female Blood Pressure: 147 mmHg / 86 mmHg Heart Rate: Exam Details Procedure Ordered: ECHOCARDIOGRAM 2D W/DOPPLER Procedure Components: Complete 2D, M-mode, complete spectral Doppler, color Doppler Procedure Status: STAT study Facility Location: [facility] Indication: Intentional Overdose Procedure Nanotechnician: Riley Garza Ordering Provider: GIGI GUTHRIE Reading Physician: Himanshu Martin MD Conclusions Left Ventricle: ? ? Left ventricle is normal in size. ? ? Normal global systolic left ventricular function. ? ? EF 60 %. ? ? Left ventricle wall thickness is mildly increased. ? ? There are no regional wall motion abnormalities. ? ? Left ventricular diastolic function parameters are normal. Mitral Valve: ? ? Mild mitral regurgitation. Tricuspid Valve Measurements ? ? RVSP: 36 mmHg. Follow up: Patient: LEEROY CANALES Study Date: 08/21/2022 04:00 PM Page 1 of 4 Findings Left Ventricle: Left ventricle is normal in size. Normal global systolic left ventricular function. EF evaluated by biplane method of disks. EF 60 %. Left ventricle wall thickness is mildly increased. There are no regional wall motion abnormalities. Left ventricular diastolic function parameters are normal. Right Ventricle: Normal size right ventricle. Right ventricular wall thickness is normal. Right ventricular systolic function is normal. Pulmonary artery pressure normal. Left Atrium: The left atrium is normal in size. Right Atrium: The right atrium is normal in size. Mitral Valve: Mitral leaflets exhibit normal cuspal separation. Mild mitral regurgitation. No mitral valve stenosis. Aortic Valve: Aortic leaflets exhibit normal cuspal separation. No aortic valve regurgitation. There is no aortic stenosis. Tricuspid Valve: Tricuspid valve leaflets are normal. Mild tricuspid regurgitation. No tricuspid valve stenosis. Pulmonic Valve: Pulmonic leaflets exhibit normal cuspal separation. Mild pulmonic valve regurgitation is present. There is no pulmonic valve stenosis. Aorta: The aorta is normal. No dilation of the ascending aorta. The aortic root exhibits normal size. Great Vessels: IVC: The inferior vena cava is normal in size and course. Pericardium: The pericardium is normal in appearance. No pericardial effusion. Clinical Data Comment: Intentional overdose Measurements Anatomy Label Value Normal Value Aorta AoAsc 2.8 cm Aortic Valve AV Vmean 0.93 m/s Aortic Valve AV VTI 31.48 cm Aortic Valve AV PGmax 8 mmHg Aortic Valve AV PGmean 4 mmHg Aortic Valve AV Vmax, Curve 1.43 m/s (1m/s - 1.7m/s) Aortic Valve LVOT VTI / AV VTI 0.8 Aortic Valve FARIBA D (continuity eq. VTI) 2.5 cm?? Aortic Valve FARIBA Index (continuity 1.28 cm??/m?? eq.Vmax) Aortic Valve LVOT Vmax / AV Vmax 0.97 Interventricular septum IVSd, 2D 1.3 cm (0.6cm - 1.1cm) Left Atrium LADs, 2D 4.1 cm (2.7cm - 3.8cm) Left Atrium LA Area s, A4C 21.6 cm?? (0cm?? - 20cm??) Left Atrium LA Area s, A2C 16.6 cm?? (0cm?? - 20cm??) Left Atrium LAESV, MOD4 61 ml (22ml - 52ml) Patient: LEEROY CANALES Study Date: 08/21/2022 04:00 PM Page 2 of 4 Left Atrium LAESV, MOD2 45 ml (22ml - 52ml) Left Atrium LAESV index, MOD4 26.1 ml/m?? Left Atrium LAESV index, MOD2 19.2 ml/m?? Left Atrium LAESV index, AL4 27.8 ml/m?? Left Atrium LAESV index, AL2 19.7 ml/m?? Left Ventricle LVOT Vmax 1.38 m/s (0.7m/s - 1.1m/s) Left Ventricle LVOTd 2 cm (1.8cm - 2cm) Left Ventricle LVOT VTI 25.23 cm (18cm - 22cm) Left Ventricle LVOT PGmax 8 mmHg Left Ventricle LVEF visual 60 % (55% - 75%) Left Ventricle LVDd, 2D 5 cm (3.7cm - 5.2cm) Left Ventricle LVDs, 2D 3.5 cm (2.2cm - 3.5cm) Left Ventricle LVPWd, 2D 0.9 cm (0.6cm - 0.9cm) Left Ventricle FS, 2D 30 % Left Ventricle LVEDV, BP 89 ml (56ml - 104ml) Left Ventricle LVESV, BP 38 ml (19ml - 49ml) Left Ventricle LVEDV Index, BP 38 ml/m?? (35ml/m?? - 75ml/m??) Left Ventricle LVESV Index, BP 16.2 ml/m?? (12ml/m?? - 30ml/m??) Left Ventricle LVOT PGmean 4 mmHg Left Ventricle LVOT Vmean 0.98 m/s Left Ventricle Diastolic MV E Vmax 1.18 m/s Function Left Ventricle Diastolic MV A Vmax 1.02 m/s Function Left Ventricle Diastolic MV E/A 1.16 Function Left Ventricle Diastolic MV DT 120 ms Function Mitral Valve MV Vmax 1.47 m/s Mitral Valve MV Vmean 0.77 m/s Mitral Valve MV VTI 29.65 cm Mitral Valve MVA D (continuity eq.) 2.6 cm?? Mitral Valve MV PGmax 9 mmHg Mitral Valve MV PGmean 3 mmHg Mitral Valve MVA PHT 6.3 cm?? Mitral Valve MV PHT 35 ms Mitral Valve MV Dec [place] 9.78 m/s?? Pulmonic Valve PV PGmax 3 mmHg Pulmonic Valve PV Vmax, Caliper 0.92 m/s (0.6m/s - 0.9m/s) Right Ventricle Diastolic TR Pmax 28 mmHg Function Right Ventricle Diastolic PV AT 100 ms Function Tricuspid Valve RVSP 36 mmHg Tricuspid Valve RA Pressure 8 mmHg Tricuspid Valve TR Vmax 2.64 m/s (No Signature Object) Patient: LEEROY CANALES Study Date: 08/21/2022 04:00 PM Page 3 of 4 Patient: LEEROY CANALES Study Date: 08/21/2022 04:00 PM Page 4 of 4 Gigi Guthrie MD ECHO ORDERABLES [facility] [address] [place] [address] * PROLACTIN (04/24/2010 11:03 AM CDT) Prolactin 6.8 SEE BELOW ng/ml [facility] Comment: See Interpretation For Normals Interpretation Prolactin [facility] Comment: ? Prolactin Normal Ranges ? ng/ml ? FEMALES ? Non- ??............ ??2.8 - 29.2 ?................ ??9.7 - 208.5 ? Postmenopausal ??.......... ??1.8 - 20.3 ? MALES ??..................... ??2.1 - 17.7 BLOOD SPECIMEN / Unknown 04/24/2010 11:03 AM CDT 04/24/2010 11:16 AM CDT Narrative Resulting Agency Comment Performed By [facility] ? Laboratory ? [address] [facility] Jimmy Pisano MD LAB - CHEMISTRY DIVINA OLVERA Performing Organization Address [facility] Co de Phone Number [facility] * TSH (04/24/2010 11:03 AM CDT) Pathologist [facility] TSH 3.289 0.490 - 4.670 mcIU/mL [facility] BLOOD SPECIMEN / Unknown 04/24/2010 11:03 AM CDT 04/24/2010 11:16 AM CDT Jimmy Pisano MD LAB - CHEMISTRY DIVINA OLVERA Performing Organization Address [facility] Co de Phone Number [facility] * HCG BLOOD QUALITATIVE (04/24/2010 11:03 AM CDT) Pathologist [facility] HCG Qual Serum Negative [facility] BLOOD SPECIMEN / Unknown 04/24/2010 11:03 AM CDT 04/24/2010 11:16 AM CDT Jimmy Pisano MD LAB - CHEMISTRY DIVINA OLVERA Performing Organization Address City/[facility]/ZIP Co de Phone Number [facility] * (ABNORMAL) HEMOGLOBIN A1C - POINT OF CARE (IP) (04/24/2010 9:52 AM CDT) Hemoglobin A1c POCT 7.3(A) 3.4 - 6.1 % [facility] POCT TEST[facility] QC Verified yes Yes [facility] PO CT TESTING Blood specimen (specimen) BLOOD SPECIMEN / Unknown 04/24/2010 9:52 AM CDT Beatriz Bear APRN-TRAY WORKER LAB - POINT OF C ARE ORDERABLES Performing Organization Address [facility] Co de Phone Number [facility] PO[facility] [address] [place] [address] * (ABNORMAL) CREATININE BLOOD (04/24/2010 9:40 AM CDT) Creatinine 1.15(H) 0.50 - 1.06 mg/dl [facility] BLOOD SPECIMEN / Unknown 04/24/2010 9:40 AM CDT 04/24/2010 9:54 AM CDT Beatriz Bear FUR CLEANER-TRAY WORKER LAB - CHEMISTRY ORDERABLES Performing Organization Address City/[facility] Co de Phone Number [facility] Care Teams Coil Wrapper Relationship Specialty Start Date End Date Cherise Patrick PA-C [address] [place] [phone] PCP - General 02/23/24
--- OUTSIDE RECORDS SUMMARY | 2024-11-17 02:58 | XMS_ITS | Encounter Summary ---
Author Organization [facility] Health Address [address] [place] [address] Care Team Providers Care Compensation Analyst Name Role Phone Cherise Patrick PA-C Primary Care Provider Reason for Visit * Reason Onset Date Comments Appointment 09/28/2024 Encounter Details Date Type Department Care Team (Late st Contact Info) Description 09/28/2024 Telephone [facility] - Infectious Disease [address] [facility] [place] [place] [address] Gail Bueno, RN Appointment Social [...] Date Recorded PHQ2 TOTAL SCORE 0 06/10/2023 [facility] - Occupational Stress Questionnaire Answer Date Recorded [...] Telephone Encounter - Gail Bueno, JIMMIE - 09/28/2024 9:13 AM CST Left voicemail with sister asking for call to be returned to schedule appointment. LE REPORTS DEVELOPER documented in this encounter Plan of Treatment Upcoming Encounters Date Type Department Care Team (Late st Contact Info) Description 11/22/2024 1:30 PM ORACLE REPORTS DEVELOPER Office Visit [facility] - Infectious Disease [address] 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
--- OUTSIDE RECORDS SUMMARY | 2024-11-17 02:58 | XMS_ITS | Encounter Summary ---
Author Organization [facility] Address [address] [place] [address] Care Team Providers Care Combustion Engineer Name Role Phone Cherise Patrick PA-C Primary Care Provider Reason for Visit * Reason Comments Transitions Of Care Encounter Details Date Type Department Care Team (Latest Contact Info) Description 09/23/2024 Transitional Care [facility] CARE COORDINATION [address] [place] [address] Ewa Blake, RN Transitions Of Care Social History Tobacco Use Types Packs/Day Years [...] Date Recorded PHQ2 TOTAL SCORE 0 06/10/2023 [facility] - Occupational Stress [...] place to sleep or slept in a [place] health care facility (including now)? No 07/26/2024 Sex and Gender [...] encounter Miscellaneous Notes * Telephone Encounter - Ewa Blake RN - 09/23/2024 11:50 AM CST Transition Engraver Pantograph(TCC) Terri Blake RN post discharge follow-up contact by telephone: Patientwith recent IP discharge from [facility] on 09/01. TCC attempted to reach pt sister today by telephone ([phone]) to complete pt post discharge follow-up contact. TCC was unable to reach pt family at this time and left voice message. TCC encouraged pt sister in the voice message to call this caption writer back when available to provide update since last follow-up contact. TCC will await call back from sister. TCC will continue to follow Patient for 30 days post-discharge with target end date of transition care program and intervention(s) set for 09/30. No immediate follow-up needs are identified pending contact from pt family. Call Duration: 5 min Ewa Blake RN, MSN Transition Engraver Pantograph Office: [phone] 09/23/2024 ESSOR OF ENGLISH documented in this encounter Plan of Treatment Upcoming Encounters Date Type Department Care Team (Late st Contact Info) Description 11/22/2024 1:30 PM PROFESSOR OF ENGLISH Office Visit [facility] - Infectious Disease [address] [place] [address], [facility] [place] [address] Kash Ha MD [address] [place] [address] documented as of this encounter Visit Diagnoses Not on filedocumented in this encounter Additional Health Concerns Infection Onset Date Last Indicated Resolved Time 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
--- OUTSIDE RECORDS SUMMARY | 2024-11-17 02:58 | XMS_ITS | Encounter Summary ---
Author Organization [facility] Health Address [address] [facility] [place] [address] Care Team Providers Care Support Team Assoc Name Role Phone Cherise Patrick PA-C Primary Care Provider Reason for Visit * Reason Onset Date Comments Results 09/07/2024 Encounter Details Date Type Department Care Team (Late st Contact Info) Description 09/07/2024 Telephone [facility] - Allergy [address] [facility] [place] [phone] Nohemi Valenzuela PA-C [address] [place] [address] Results Social History Tobacco Use Types Packs/Day Years Used Date Smoking Tobacco: Former Cigarettes S tarted: 2011 Smokeless Tobacco: Never Comments:Quit 4-5 months aft [...] Date Recorded PHQ2 TOTAL SCORE 0 06/10/2023 [facility] Occupat ional Health - Occupational Stress [...] encounter Miscellaneous Notes * Telephone Encounter - Eloisa Alonzo, RN - 09/07/2024 1:38 PM MANAGER CONSUMER Called and spoke to nurse at [facility]. Nurse explained all they can draw is a vanc trough and a CBC. She explained they aren't supposed to draw any labs but can draw those two as a courtesy . She explained pt will get labs drawn tomorrow and she will leave a note with the nurse to have results faxed to us. 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
--- OUTSIDE RECORDS SUMMARY | 2024-11-17 02:58 | XMS_ITS | Encounter Summary ---
Author Organization [facility] Health Address [address] [facility] [place] [address] Care Team Providers Care Recorder Of Deeds Name Role Phone Cherise Patrick PA-C Primary Care Provider Reason for Visit * Reason Onset Date Comments Appointment 09/01/2024 Encounter Details Date Type Department Care Team (Late st Contact Info) Description 09/01/2024 Telephone [facility] - [facility] [address] [facility] [place] [phone] Roxanna Roth PA-C [address] [place] [address] Appointment Social History Tobacco Use Types Packs/Day [...] Date Recorded PHQ2 TOTAL SCORE 0 06/10/2023 [facility] of Occupat ional Health - Occupational Stress [...] place to sleep or slept in a jail (including now)? No 07/26/2024 Sex and Gender [...] Telephone Encounter - Eloisa Alonzo, RN - 09/01/2024 4:00 PM CDT Called pt to explain change to day/time of appointment. No answer, left voicemail asking to call office back. documented in this encounter Plan of Treatment Upcoming Encounters Date Type Department Care Team (Late st Contact Info) Description 11/22/2024 1:30 PM RN BABY Office Visit [facility] - Infectious Disease [address] 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
--- OUTSIDE RECORDS SUMMARY | 2024-11-17 02:58 | XMS_ITS | Encounter Summary ---
Author Organization [facility] Health Address [address] [facility] [place] [address] Care Team Providers Care Payroll Tax Analyst Name Role Phone Cherise Patrick PA-C Primary Care Provider Reason for Visit * Reason Onset Date Comments Medication Clarification 2024 Encounter Details Date Type Department Care Team (Late st Contact Info) Description 2024 Telephone [facility]ious Disease [address] [facility], [facility] [place] [phone] Kash Ha MD [address] [place] [address] Medication Clarification Social History Tobacco Use Types Packs/Day Years [...] 06/10/2023 [facility] of Occupat ional Health - Occupational [...] place to sleep or slept in a snf (including now)? No 07/26/2024 Sex and Gender [...] encounter Miscellaneous Notes * Telephone Encounter - Brittney Hurtado - 2024 1:14 PM CST Pt sister calling to see if you can seen a script for the saline and pt was wanting to see if they can push there apt out If they can get a script for the saline Pt call back # [phone] Pt sister Kianna K OUT MACHINE OPERATOR documented in this encounter Plan of Treatment Upcoming Encounters Date Type Department Care Team (Late st Contact Info) Description 11/22/2024 1:30 PM BLOCK OUT MACHINE OPERATOR Office Visit [facility] - Infectious Disease [address] [place] [address], [facility] [place] [address] Kash Ha MD [address] [place] [address] documented as of this encounter Visit Diagnoses Not on filedocumented in this encounter Additional Health Concerns Infection Onset Date Last Indicated Resolved Time 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
--- OUTSIDE RECORDS SUMMARY | 2024-11-17 02:58 | XMS_ITS | Encounter Summary ---
Author Organization [facility] Health Address [address] [facility] [address] [place] [address] Care Team Providers Care Vehicle Cost Engineer Name Role Phone Cherise Patrick PA-C Primary Care Provider [phone] Encounter Details Date Type Department Care Team (Latest Contact Info) Description 09/28/2024 Travel Social History Tobacco Use Types Packs/Day [...] TOTAL SCORE 0 06/10/2023 [facility] [place] of Occupat ional Health - Occupational Stress [...] place to sleep or slept in a [facility] (including now)? 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
--- OUTSIDE RECORDS SUMMARY | 2024-11-17 02:58 | XMS_ITS | Encounter Summary ---
Author Organization [facility] Health Address [address] [facility] [place] [address] Care Team Providers Care Coat Cutter Name Role Phone Cherise Patrick PA-C Primary Care Provider [phone] Reason for Visit * Reason Onset Date Comments Appointment 09/28/2024 Encounter Details Date Type Department Care Team (Late st Contact Info) Description 09/28/2024 Telephone [facility] - Infectious Disease [address] [facility], [facility] [place] [address] Gail Bueno, RN Appointment Social [...] Date Recorded PHQ2 TOTAL SCORE 0 06/10/2023 [facility] - Occupational Stress Questionnaire Answer Date Recorded [...] place to sleep or slept in a [facility] (including now)? No 07/26/2024 Sex and Gender [...] Encounter - Gail Bueno, JIMMIE - 09/28/2024 12:22 PM CST Spoke with patient sister and scheduled a follow up visit for 10/11/[address] 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
--- OUTSIDE RECORDS SUMMARY | 2024-11-17 02:58 | XMS_ITS | Encounter Summary ---
Author Organization [facility] Address [address] [place] [address] Care Team Providers Care Racking Machine Operator Name Role Phone Cherise Marcelo PA-C Primary Care Provider Reason for Referral * Home Health Care (Routine) - Pending Review Specialty Diagnoses / Procedures Referred By Contac t Referred To Contact Home Health Services Diagnoses 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HCC) José Brower MD [address] [place] [address] Referral ID Status Reason Start Date Expiration Date Visits Requested Visits Authorized [id number] Pending Review Specialty Services Required 09/01/2025 999 999 * Home Health Care (Routine) - Pending Review Specialty Diagnoses / Procedures Referred By Contleah t Referred To Contact Home Health Services Diagnoses 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HCC) José Brower MD [address] [place] [address] Referral ID Status Reason Start Date Expiration Date Visits Requested Visits Authorized [id number] Pending Review Specialty Services Required 09/01/2025 999 999 * Evaluate & Treat (Routine) - Closed Specialty Diagnoses / Procedures Referred By Bingac t Referred To Contact Radiology Diagnoses 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[facility]) José Brower MD [address] [place] [address] [facility] [address] [place] [address] Referral ID Status Reason Start Date Expiration Date V isits Requested Visits Authorized [id number] Closed Specialty Services Required 09/01/2024 09/01/2025 1 1 * Evaluate & Treat (Routine) - Closed Specialty Diagnoses / Procedures Referred By Jany t Referred To Contact Nephrology Diagnoses ESRD (end stage renal disease) ([facility]) José Brower MD [address] [place] [address] [facility] Neph [facility]sm [address] [facility] [place] [address] Referral ID Status Reason Start Date Expiration Date V isits Requested Visits Authorized [id number] Closed Specialty Services Required 09/01/2024 09/01/2025 1 1 * Evaluate & Treat (Routine) - Closed Specialty Diagnoses / Procedures Referred By Jany t Referred To Contact Infectious Disease Diagnoses MRSA bacteremia 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[facility]) José Brower MD [address] [place] [address] [facility] [address] [place] [address] Referral ID Status Reason Start Date Expiration Date V isits Requested Visits Authorized [id number] Closed Specialty Services Required 09/01/2024 09/01/2025 1 1 * Evaluate & Treat (Routine) - Open Specialty Diagnoses / Procedures Referred By Jany martinez Referred To Contact Orthopedics Diagnoses MRSA bacteremia 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HCC) José Brower MD [address] [place] [address] [facility] Ortho Csm [address] [facility] [place] [address] Referral ID Status Reason Start Date Expiration Date V isits Requested Visits Authorized [id number] Open Specialty Services Required 09/01/2024 09/01/2025 1 1 Reason for Visit * Reason Comments Shoulder Pain Pt bibEMS from OSH w ith c/o R shoulder pain and possible septic joint. Pt arrives with NS bolus and Vancomycin infusing. A&Ox4, VSS. * Auth/Cert (Routine) Specialty Diagnoses / Procedures Referred By Jany martinez Referred To Contact Diagnoses Septic Arthritis Referral ID Status Reason Start Date Expiration Date Visits Re quested Visits Authorized [id number] 1 1 Encounter Details Date Type Department Care Team (Late st Contact Info) Description 08/26/2024 4:27 PM CDT - 09/01/2024 4:54 PM CDT Hospital Encounter [facility] [address] [place] [address] Servando Morris MD [address] [facility] DIV [place] [address] [place] [address] [place] [address] Alfred Jenkins MD [address] [facility] [address] DIV [place] [address] Harpreet Katz DO [address] [place] [address] Noe Rabago MD [address] [place] [address] José Brower MD [address] [place], [place] [id number] Surgery Orthopedics Discharge Disposition: Home Health Care Svc Social History Tobacco Use Types Packs/Day Years [...] Date Recorded PHQ2 TOTAL SCORE 0 06/10/2023 [facility] - Occupational Stress Questionnaire Answer [...] on file documented as of this encounter Last Filed Vital Signs Vital Sign Reading Time Taken Comments Blood Pressure 129/78 09/01/2024 12:49 PM CDT Pulse 80 09/01/2024 12:49 PM CDT Temperature 36.9 ??C (98.5 ??F) 09/01/2024 1 2:49 PM CDT Respiratory Rate 18 09/01/2024 12:4 9 PM CDT Oxygen Saturation 100% 09/01/2024 12: 49 PM CDT Inhaled Oxygen Concentration - - Weight 113.3 kg (249 lb 11.2 oz) 09/01/2024 4:00 AM CDT Height 170.2 cm (5' 7 ) 08/30/2024 2:07 PM CDT Body Mass Index 39.11 08/30/2024 2:07 PM CDT documented in this encounter Functional Status Functional Status Response [...] No 07/26/2024 documented as of this encounter Discharge Summaries * José Brower MD - 09/01/2024 11:10 AM CDT Physician Discharge Summary Patient ID: Gay Canales [id number] 33 year old 1990 Admit date: 08/26/2024 Discharge date: 09/01/2024 Admitting Physician: Alfred Jenkins MD Discharge Physician: José Damian MD Admission Diagnoses: Right shoulder pain and swelling, improved History of septic arthritis/ostemyelitis of Both shoulder MRSA bacteremia, multiple soft tissue abscesses T2DM with diabetic retinopathy, nephropathy, peripheral neuropathy Right plantar diabetic foot wound, POA ESRD on HD MWF Anemia of chronic disease History of provoked DVT 07/30 PVD R heel ulcer, POA HTN HLD Anemia HFpEF Discharge Diagnoses: Right shoulder pain and swelling, improved History of septic arthritis/ostemyelitis of Both shoulder MRSA bacteremia, multiple soft tissue abscesses T2DM with diabetic retinopathy, nephropathy, peripheral neuropathy Right plantar diabetic foot wound, POA ESRD on HD MWF Anemia of chronic disease History of provoked DVT 07/30 PVD R heel ulcer, POA HTN HLD Anemia HFpEF Discharged Condition: Stable Hospital Course: 33 year old female with h/o T2DM, ESRD on HD TTS, HTN, HLD, hx of RUE DVT, anemia, PVD, blindness, s/p L AKA, HFpEF, prior hx of infectious arthritis presenting from [facility] for 1 week history of right shoulder pain. She has had multiple admissions for similar CC. [facility] recently [facility] on 08[facility]. She had follow up with [facility] on 08/23/24, decision made at that time to continue IV vanc through 09/10/24. Patient reports she has had worsening Right shoulder pain for a few days Orthopedic surgery drained her joint and fluid aspirate analysis with bloody fluid and 3,700 total nucleated cells with 83% neutrophils. No cultures ordered. Right shoulder XR with deformity of righthumeral head/neck likely related to erosive changes of septic arthirits or osteomyelitis stable from multiple previous exams. MRI thoracic, cervical, and lumbar spine-no acute changes. No acute intervention per Orthopedics. ID consulted, recommended continuing IV Vanc. Patient has also been managedduring this hospitalization with the following issues: Right shoulder pain and swelling History of septic arthritis/ostemyelitis of Both shoulder MRSA bacteremia, multiple soft tissue abscesses - Synovial fluid analysis in the ED showing bloody red fluid with 3,700 total nucleated cells 83% neutrophils, - ortho has low concern for active septic arthritis given these studies and patient's ROM on exam. - Immunoglobulin studies ordered in 2021 with mildly reduced IgG to 663 (normal 700-1600). -consulted ID, recommendation - Continue vancomycin (anticipated EOT 09/10/24) - Orthopedics Ok to resume Eliquis. - MRI Rt shoulder wwo contrast-, anterior soft tissue fluid collection with gas concerning for abscess, appears to communicate with glenohumeral joint space -IR was consulted, drain placed on 08/30. IR recommendation- Keep catheter open for external drainage, and record daily catheter output. Flush the catheter with 10 mL saline Q 8 hrs. Keep dressing clean and dry at all times. Change dressing Q 24-48 hours. Change dressing earlier ifit becomes wet or soiled. If the output falls below 5 mL/day for three consecutive days, please call IR to schedule the patient for a tube check to evaluate for possible repositioning/removal. Contact IR if the catheter stops draining, if there is pericatheter leakage, or if the catheter is inadvertently pulled out. T2DM with diabetic retinopathy, nephropathy, peripheral neuropathy Right plantar diabetic foot wound, POA Last A1c 7.4% - SSI with meals - continue home gabapentin 300 mg MWF - wound consulted for R foot wound care ESRD on HD MWF Anemia of chronic disease - Nephrology consulted for HD - continued home iron supplement - continued home Lasix 40 mg po MWF - continued home renal vitamin, Sevelamer History of provoked DVT 07/30 plan for 3 months AC, started during last admission, however patient has been off since 08/09, unable to fill Rx - Eliquis 5 mg bid, PVD R heel ulcer, POA - Wound care consulted - Regular dressing changes HTN HLD Anemia HFpEF - last TTE 07/30/24 showing normal LV systolic function prior study 05/2024 demonstrated grade II diastolic dysfunction - carvedilol to 25 mg bid, lisinopril to 40 mg daily, and continue home amlodipine 10 mg daily Of the last few days patient has been hemodynamically stable, today we are discharging the patient to home with home health with further instructions. Consults: Orthopedics, IR, ID Discharge Exam: Temp: [98.2 ??F (36.8 ??C)-98.8 ??F (37.1 ??C)] 98.4 ??F (36.9 ??C) Pulse: [73-79] 77 Resp: [18] 18 BP: (97-140)/(57-84) 140/84 I/O last 2 completed shifts: In: 1406 [P.O.:922; Other:484] Out: 80 [Drains:80] Gen: Alert, cooperative, in no acute distress CV: Regular S1 & S2. Lungs: Clear to auscultation bilaterally Abdomen: BS+, soft, non-tender, non-distended Extremities: TTP R shoulder joint, preserved ROM, incision site c/d/i, L AKA, Neuro: No gross focal neurologic deficits noted Disposition: Home with home health Patient Instructions: please take the medications regularly Follow PCP, Infectious Disease, IR, Nephrology, orthopedics in 1-2 weeks, We already communicated with the financial accountant If any emergency please come to the ED. Instruction for the drain tube on the right shoulder: IR recommendation as follows - Keep catheter open for external drainage, and record daily catheter output. Flush the catheter with 10 mL saline Q 8 hrs. Keep dressing clean and dry at all times. Change dressing Q 24-48 hours. Change dressing earlier ifit becomes wet or soiled. If the output falls below 5 mL/day for three consecutive days, please call IR to schedule the patient for a tube check to evaluate for possible repositioning/removal. Contact IR if the catheter stops draining, if there is pericatheter leakage, or if the catheter is inadvertently pulled out. Current Discharge Medication List START taking these medications Instructions Authorizing Provider epoetin carlin-EPBX 4000 UNIT/ML injection Commonly known as: Retacrit Quantity Dispensed: 12 mL 1 mL by Intravenous route Give in dialysis on Friday, & Friday for 30 days José Damian MD lidocaine 5 % patch Commonly known as: Lidoderm Quantity Dispensed: 15 patch Apply 1 (one) patch to skin every 24 hours for 15 days Apply patch to most painful area and remove after 12 hours. May reapply a new patch 12 hours later. José Damian MD methocarbamol 500 MG tablet Commonly known as: Robaxin Quantity Dispensed: 90 tablet Take 1 (one) tablet by mouth every 8 hours for 30 days José Damian MD polyethylene glycol 3350 17 g packet Commonly known as: Miralax Quantity Dispensed: 15 packet Take 17 (seventeen) g by mouth once daily for 15 days José Damian MD senna-docusate 8.6-50 MG tablet Commonly known as: Senokot-S Quantity Dispensed: 30 tablet Take 1 (one) tablet by mouth once daily for 30 days José Damian MD CONTINUE taking these medications which have CHANGED Instructions Authorizing Provider acetaminophen 325 MG tablet What changed: medication strength how much to take when to take this reasons to take this Commonly known as: Tylenol Take 2 (two) tablets by mouth every 6 hours as needed for Fever, Pain or Headache Maximum allowableAcetaminophen amount = 4 Grams (4000 mg) / 24 hours. José Damian MD apixaban 5 MG tablet What changed: See the new instructions. Commonly known as: Eliquis Quantity Dispensed: 60 tablet Take 1 (one) tablet by mouth 2 times daily for 30 days José Damian MD carvedilol 25 MG tablet What changed: medication strength how much to take Commonly known as: Coreg Quantity Dispensed: 60 tablet Take 1 (one) tablet by mouth 2 times daily with morning and evening meal for 30 days José Damian MD furosemide 40 MG tablet What changed: when to take this Commonly known as: Lasix Quantity Dispensed: 12 tablet Start taking on: September 02, 2024 Take 1 (one) tablet by mouth every Friday, , & Friday for 30 days José Damian MD oxyCODONE (immediate release) 10 MG tablet What changed: reasons to take this Commonly known as: Roxicodone Quantity Dispensed: 16 tablet Take 1 (one) tablet by mouth every 4 hours as needed Reasons: Acute Pain José Damian MD CONTINUE taking these medications which have NOT CHANGED Instructions Authorizing Provider Alcohol Prep 70 % Quantity Dispensed: 100 Each USE ONE SWAB TO CLEAN SKIN FOUR TIMES DAILY BEFORE TESTING Amanda Georges MD amLODIPine 10 MG tablet Commonly known as: Norvasc Quantity Dispensed: 30 tablet Take 1 (one) tablet by mouth once daily for 30 days José Damian MD gabapentin 300 MG capsule Commonly known as: Neurontin Quantity Dispensed: 30 capsule Take 1 (one) capsule by mouth every Friday, Friday & Friday Harpreet Katz DO Gauze Dressing 4 X4 Pads Quantity Dispensed: 24 Each Use 1 Pad every 2 days Apply to right shoulder, change dressing every 48 hours, sooner if needed. Harpreet Katz DO lisinopril 20 MG tablet Commonly known as: Prinivil; Zestril Quantity Dispensed: 30 tablet Take 1 (one) tablet by mouth once daily Kash Ha MD ONETOUCH DELICA PLUS 33G EXTRA FINE LANCET Quantity Dispensed: 100 Each USE ONE LANCET TO PRICK FINGER FOUR TIMES DAILY FOR BLOOD GLUCOSE TESTING MD Tyron Ying Sientrajayda Reflect w/Device Kit Quantity Dispensed: 1 kit Use 1 kit 4 times daily USE METER TO CHECK BLOOD GLUCOSE FOUR TIMES DAILY Reasons: CALL [facility] WHENDELIVERING X4364 MD Tyron Ying Verjayda test strip Generic drug: blood glucose Quantity Dispensed: 100 strip USE ONE STRIP TO TEST BLOOD SUGAR FOUR TIMES DAILY Amanda Georges MD renal vitamin tablet Take 1 (one) tablet by mouth once daily Fox Burleson MD sevelamer carbonate 800 MG Commonly known as: Renvela Take 1 (one) tablet by mouth 3 times daily with meals Fox Burleson MD STOP taking these medications bisacodyl 10 MG suppository Commonly known as: Dulcolax FeroSul 325 (65 Fe) MG tablet Generic drug: ferrous sulfate melatonin 3 MG tablet sennosides 8.6 MG tablet Commonly known as: Senokot vancomycin 750 mg in 0.9% NaCl IV 0.9 % 250 mL Time spent on discharge: 35 minutes. Time was spent on preparation of discharge records, prescriptions, counseling patient, working withsocial work and nursing stuff Signed: José Damian MD 09/01/2024 11:11 AM documented in this encounter Discharge Instructions * Discharge Instructions* Briana Larson PA-C - 08/31/2024 11:55 AM CDT [facility] Abscess/Fluid Collection Drain Care What is an abscess/fluid collection drain? An abscess drain is a small tube that drains your infected drainage to the outside of your body through a tube and into a drainage bag. The place where the tube come out of your body is called the exit site. When you leave the hospital, the exit site will likely be covered by a dressing. Problems that require medical attention: There can be problems with the abscess drain that you should not try to solve by yourself: Please call your doctor or hospital right away if any of the following happen: If the tube comes out. Do not try to put the tube back in by yourself. Leakage around the tube at the exit site. If the tubing or any of its parts breaks or cracks Care of the Abscess Drain: To care for your abscess drain, please follow the following instructions: Wash your hands well with soap and water before and after you touch the tube or drainage. Check the catheter tubing for leaks, loops, or kinks. Always keep the catheter drainage bag secured to your body using a belt to secure it to your abdomen. Empty the drainage bag regularly to avoid over filling and pulling on the catheter and measure the drainage in order to report the amount to the Doctor especially when the drainage is less than 5 cc in a 24-hour period Schedule an appointment in radiology when the output is less than 5 cc in 24 hours. Call [phone] to make or change an existing appointment. Changing the dressing: Change the dressing about every three days or if the dressing becomes wet or soiled. You should change the dressing on the exit site. To change the dressing, follow the following steps: Cleanse the exit site with a cleansing solution or use soap and water. Rinse with clean water. Covered the site with gauze. Attached the gauze in place with tape or clean Band-Aid over the gauze. Flushing the abscess drain with normal saline: The drainage tube may need to be flushed with a salt water solution called normal saline (NS). Thisclears any small pieces waist that maybe blocking the catheter from draining. Do this three times aday as you have been instructed. To flush the tube, follow the following steps: Wash your hands with soap and water. Clean the three-way stopcock between the drain and the drainage tubing with an alcohol swab. Attach the syringe of normal saline to the side port of the stopcock. Turned the off dial toward the bag. Gently pushed the plunger to fill the catheter within normal saline solution. Once the normal saline is all in, turned the off dial back to the side port positioned. Remove the syringe. Wash your hands again with soap and water. [facility] [address] [place] [address], [address] [place] [address] documented in this encounter Medications at Time of Discharge Medication Sig Dispensed Refills Start Date End Date acetaminophen (Tylenol) 325 MG tablet Take 2 (two) tablets by mouth every 6 hours as needed for Fever, Pain or Headache Maximum allowable Acetaminophen amount = 4 Grams (4000 mg) / 24 hours. 09/01/2024 Alcohol Swabs (Alcohol Prep) 70 % USE ONE SWAB TO CLEAN SKIN FOUR TIMES DAILY BEFORE TESTING 100 Each 12/12/2022 amLODIPine (Norvasc) 10 MG tablet Take 1 (one) tablet by mouth once daily for 30 days 30 tablet 09/01/2024 apixaban (Eliquis) 5 MG tablet Take 1 (one) tablet by mouth 2 times daily for 30 days 60 tablet 09/01/2024 blood glucose (OpswareTouch Verio) test stripIndications:Hyp erglycemia USE ONE STRIP TO TEST BLOOD SUGAR FOUR TIMES DAILY 100 strip 12/12/2022 Blood Glucose Monitoring Suppl (OneTouch Verio Reflect) w/Device KITIndications:CALL [facility] WHEN DELIVERING X4364 Use 1 kit 4 times daily USE METER TO CHECK BLOOD GLUCOSE FOUR TIMES DAILY Reasons: CALL [facility] WHEN DELIVERING X4364 1 kit 12/12/2022 carvedilol (Coreg) 25 MG tablet Take 1 (one) tablet by mouth 2 times daily with morning and evening meal for 30 days 60 tablet 09/01/2024 furosemide (Lasix) 40 MG tablet Take 1 (one) tablet by mouth every Friday, , & Friday for 30 days 12 tablet 09/02/2024 gabapentin (Neurontin) 300 MG capsule Take 1 (one) capsule by mouth every Friday, Friday & Friday 30 capsule 08/09/2024 Gauze Pads & Dressings (Gauze Dressing) 4 X4 PADS Use 1 Pad every 2 days Apply to right shoulder, change dressing every 48 hours, sooner if needed. 24 Each 1 08/09/2024 Lancets (TradyoTOUCH DELICA PLUS 33G EXTRA FINE LANCET)Indications:H yperglycemia USE ONE LANCET TO PRICK FINGER FOUR TIMES DAILY FOR BLOOD GLUCOSE TESTING 100 Each 12/12/2022 lisinopril (Prinivil; Zestril) 20 MG tabletIndications:Hy pertension, unspecified type Take 1 (one) tablet by mouth once daily 30 tablet 08/24/2024 oxyCODONE, immediate release, (Roxicodone) 10 MG tabletIndications:Ac salamatof Pain Take 1 (one) tablet by mouth every 4 hours as needed Reasons: Acute Pain 16 tablet 08/31/2024 renal vitamin (Dialyvite) tablet Take 1 (one) tablet by mouth once daily 02/28/2024 sevelamer carbonate (Renvela) 800 MG Take 1 (one) tablet by mouth 3 times daily with meals 02/28/2024 lidocaine (Lidoderm) 5 % patch Apply 1 (one) patch to skin every 24 hours for 15 days Apply patch to most painful area and remove after 12 hours. May reapply a new patch 12 hours later. 15 patch 09/01/2024 2024 methocarbamol (Robaxin) 500 MG tablet Take 1 (one) tablet by mouth every 8 hours for 30 days 90 tablet 09/01/2024 10/01/2024 polyethylene glycol 3350 (Miralax) 17 GM/SCOOP powder Take 17 (seventeen) g by mouth once daily for 15 days 510 g 09/01/2024 10/01/2024 senna-docusate (Senokot-S) 8.6-50 MG tablet Take 1 (one) tablet by mouth once daily for 30 days 30 tablet 09/01/2024 10/01/2024 documented as of this encounter Progress Notes * Antony Murrell RN - 09/01/2024 4:26 PM CDT Patient belongings packed up. Discharge medications, wound care supplies, drain supplies and discharge instructions packed in back and sent with EMS. Patient had cell phone in hand upon discharge. IVremoved. Dialysis catheter in place with clean dry dressing. * Clifton Burt MD - 09/01/2024 3:46 PM CDT [facility] Department of Nephrology Progress Note Date of Admission: 08/26/2024 Length of Stay: 5 Date of Service: 08/27/2024 Consulting Service: [facility] Reason for Consult: ESRD w/ HD HISTORY: Per initial consult note: Gay Canales is a 33 year old female w/ PMH significant for ESRD w/ HD MWF via left TDC h/o T2DM,ESRD on HD TTS, HTN, HLD, hx of RUE DVT, anemia, PVD, blindness, s/p L AKA, HFpEF, prior hx of infectious arthritis who presented from OSH for right shoulder pain concerning for septic arthritis, orthopedics and ID consulted for further management. Nephrology consulted for ESRD and for maintenance hemodialysis. Cause of ESRD: most likely HTN and DM Urine: Yes Access: [facility] Dialysis Center: [facility] Dialysis Days: MWF Dialysis Duration: 3 Hours 0 Minutes Last Dialysis: 08/25/2024 Urban Renewal Manager: Dr. Millan INTERVAL HISTORY: - HD today and then discharge Past Medical History: Diagnosis Date Essential (primary) hypertension Heart failure (HCC) Type 2 diabetes mellitus without complications (HCC) Past Surgical History: Procedure Laterality Date DEBRIDEMENT Right 07/27/2024 Right; RIGHT SHOULDER INCISION AND DEBRIDEMENT LEG AMPUTATION ABOVE KNEE Left 12/05/2022 Left; AMPUTATION ABOVE LEFT KNEE Leg Amputation, Below Knee Left 12/02/2022 Left; LEFT ANKLE DISARTICULATION LEVEL 2 @ 2220 Family History Problem Relation Name Age of Onset Diabetes - Type 2 Mother Hypertension Mother Diabetes - Type 2 Father Hypertension Father Diabetes - Type 2 Paternal Grandmother Hypertension Paternal Grandmother Social History: Social History Socioeconomic History Marital status: Single Spouse name: Not on file Number of children: Not on file Years of education: Not on file Highest education level: Not on file Occupational History Not on file Tobacco Use Smoking status: Former Types: Cigarettes Start date: 2010 Smokeless tobacco: Never Tobacco comments: Quit 4-5 months after starting Vaping Use Vaping status: Never Used Substance and Sexual Activity Alcohol use: Not Currently Comment: Occassionally Drug use: Not Currently Types: Marijuana Comment: At age 20 for 4-5 months Sexual activity: Not Currently Other Topics Concern Not on file Social History Narrative Not on file Social Determinants of Health Financial Resource Strain: Low Risk (07/26/2024) Overall Financial Resource Strain (CARDIA) Difficulty of Paying Living Expenses: Not hard at all Food Insecurity: No Food Insecurity (07/26/2024) Hunger Vital Sign Worried About Running Out of Food in the Last Year: Never true Ran Out of Food in the Last Year: Never true Transportation Needs: No Transportation Needs (07/26/2024) PRAPARE - Transportation Lack of Transportation (Medical): No Lack of Transportation (Non-Medical): No Stress: No Stress Concern Present (07/26/2024) [employer] [place] [employer] - Occupational Stress Questionnaire Feeling of Stress : Not at all Housing Stability: Low Risk (07/26/2024) Housing Stability Vital Sign Unable to Pay for Housing in the Last Year: No Number of Places Lived in the Last Year: 2 Unstable Housing in the Last Year: No Recent Concern: Housing Stability - High Risk (05/23/2024) Housing Stability Vital Sign Unable to Pay for Housing in the Last Year: No Number of Places Lived in the Last Year: 7 Unstable Housing in the Last Year: No Allergies: No Known Allergies Home Medications: No current facility-administered medications on file prior to encounter. Current Outpatient Medications on File Prior to Encounter Medication Sig Dispense Refill acetaminophen (Tylenol) 500 MG tablet Take 1 (one) tablet by mouth every 4 hours Maximum allowable Acetaminophen amount = 4 Grams (4000 mg) / 24 hours. (Patient not taking: Reported on 08/23/2024) Alcohol Swabs (Alcohol Prep) 70 % USE ONE SWAB TO CLEAN SKIN FOUR TIMES DAILY BEFORE TESTING (Patient not taking: Reported on 08/23/2024) 100 Each PRN amLODIPine (Norvasc) 10 MG tablet Take 1 (one) tablet by mouth once daily 30 tablet 0 apixaban (Eliquis) 5 MG tablet Take 2 (two) tablets by mouth 2 times daily for 4 days, THEN 1 (one)tablet 2 times daily for 90 days. (Patient not taking: Reported on 08/23/2024) 196 tablet 0 bisacodyl (Dulcolax) 10 MG suppository Insert 1 (one) suppository into the rectum once daily as needed for Constipation (Patient not taking: Reported on 08/23/2024) blood glucose (OpswareTouch Verio) test strip USE ONE STRIP TO TEST BLOOD SUGAR FOUR TIMES DAILY (Patient not taking: Reported on 08/23/2024) 100 strip PRN Blood Glucose Monitoring Suppl (Janalakshmi Verio Reflect) w/Device KIT Use 1 kit 4 times daily USE METER TO CHECK BLOOD GLUCOSE FOUR TIMES DAILY Reasons: CALL [facility] WHEN DELIVERING X4364 (Patient not taking: Reported on 08/27/2024) 1 kit 0 carvedilol (Coreg) 12.5 MG tablet Take 1 (one) tablet by mouth 2 times daily with morning and evening meal 60 tablet 0 FeroSul 325 (65 Fe) MG tablet Take 1 (one) tablet by mouth daily with breakfast furosemide (Lasix) 40 MG tablet Take 1 (one) tablet by mouth every Friday, Friday & Friday 0 gabapentin (Neurontin) 300 MG capsule Take 1 (one) capsule by mouth every Friday, Friday & Friday 30 capsule 0 Gauze Pads & Dressings (Gauze Dressing) 4 X4 PADS Use 1 Pad every 2 days Apply to right shoulder, change dressing every 48 hours, sooner if needed. 24 Each 1 Lancets (CultureIQ DELICA PLUS 33G EXTRA FINE LANCET) USE ONE LANCET TO PRICK FINGER FOUR TIMES DAILY FOR BLOOD GLUCOSE TESTING (Patient not taking: Reported on 08/23/2024) 100 Each PRN lisinopril (Prinivil; Zestril) 20 MG tablet Take 1 (one) tablet by mouth once daily 30 tablet 0 melatonin 3 MG tablet Take 1 (one) tablet by mouth nightly as needed for Insomnia (Patient not taking: Reported on 08/23/2024) oxyCODONE, immediate release, (Roxicodone) 10 MG tablet Take 1 (one) tablet by mouth every 4 hours as needed for Pain (Patient not taking: Reported on 08/27/2024) 12 tablet 0 renal vitamin (Dialyvite) tablet Take 1 (one) tablet by mouth once daily senna (Senokot) 8.6 MG tablet Take 1 (one) tablet by mouth once daily (Patient not taking: Reportedon 08/23/2024) sevelamer carbonate (Renvela) 800 MG Take 1 (one) tablet by mouth 3 times daily with meals vancomycin 750 mg in 0.9% NaCl IV 0.9 % 250 mL 750 (seven hundred fifty) mg by Intravenous route every Friday, , & Friday for 35 days Hospital Medications: 0.9% NaCl 3 mL Intracatheter q8h acetaminophen 1,000 mg Oral q8h amLODIPine 10 mg Oral QDAY apixaban 5 mg Oral BID carvedilol 25 mg Oral BID epoetin 4,000 Units Intravenous DIALYSIS MON, WED & FRI furosemide 40 mg Oral , & FRI gabapentin 300 mg Oral MON, FRI AND FRI insulin aspart 0-6 Units Subcutaneous TID lidocaine 1 patch Transdermal q24h lisinopril 20 mg Oral QDAY methocarbamol 500 mg Oral q8h polyethylene glycol 3350 17 g Oral QDAY renal vitamin 1 tablet Oral QDAY senna-docusate 1 tablet Oral QDAY sevelamer carbonate 800 mg Oral TID vancomycin 750 mg Intravenous FRI, FRI AND FRI vancomycin (VANCOCIN) IV dose per pharmacy Does not apply DIRECTED PRN Meds: SALINE LOCK, INSERT AND MAINTAIN AND 0.9% NaCl AND 0.9% NaCl dextrose IV for hypoglycemia OR dextrose IV for hypoglycemia OR glucagon glucose (Diabetic Use) gel HYDROmorphone oxyCODONE (immediate release) OR oxyCODONE (immediate release) OBJECTIVE: Vitals: 09/01/24 1215 09/01/24 1230 09/01/24 1244 09/01/24 1249 BP: 117/81 129/78 123/78 129/78 Pulse: 79 83 80 80 Resp: 16 16 18 18 Temp: 98.5 ??F (36.9 ??C) SpO2: 100% Weight: Height: Estimated body mass index is 39.11 kg/m?? as calculated from the following: Height as of this encounter: 1.702 m (5' 7 ). Weight as of this encounter: 113.3 kg (249 lb 11.2 oz). Intake/Output Summary (Last 24 hours) at 09/01/2024 1547 Last data filed at 09/01/2024 1244 Gross per 24 hour Intake 714 ml Output 1085 ml Net -371 ml Physical Exam: Physical Exam Constitutional: Appearance: Normal appearance. Cardiovascular: Rate and Rhythm: Normal rate and regular rhythm. Heart sounds: Normal heart sounds. Pulmonary: Effort: Pulmonary effort is normal. Breath sounds: Normal breath sounds. Abdominal: General: Bowel sounds are normal. Palpations: Abdomen is soft. Neurological: General: No focal deficit present. Mental Status: She is alert and oriented to person, place, and time. Mental status is at baseline. Access: Left [facility] LABS: CBC: Recent Labs Component Name 08/31/24191708/31/2462108/29/242023 WBC 9.5 9.7 9.6 HGB 10.1* 9.4* 9.1* HCT 33.1* 31.1* 30.2* MCV 95.4 96.0 97.4 BMP: Recent Labs Component Name 08/31/24191708/31/2462108/29/242023 NA 138 137 139 CL 103 102 104 CO2 20* 26 23 BUN 31* 22 35* CREATININE 5.54* 4.39* 6.51* Recent Labs Component Name 08/31/24191708/31/2462108/29/242023 CALCIUM 8.1* 8.0* 7.8* PHOS 5.3* 4.2 6.2* LFT: Recent Labs Component Name 08/31/24191708/31/2462108/29/24202308/28/24202808/26/24 2312 08/25/24 0950 08/09/24 0945 08/07/24 0547 PROT - - - - 8.2 8.4* - 7.9 ALB 2.3* 2.2* 2.2* - 2.5* 2.6* - 2.1* ALKPHOS - - - - 215* 216* - 106 AST - - - - 13 10 - 10 ALT - - - - 6 8 - <5* TBILI - - - - 0.2 0.3 - 0.2 - = values in this interval not displayed. Recent Labs Component Name 08/25/24 0950 LIPASE 57 No results for input(s): TSH in the last 79676 hours. Coagulation: Recent Labs Component Name 08/04/24 0254 08/03/24 0538 08/02/24 0804 PT 14.6 14.5 13.3 INR 1.2 1.2 1.0 Cardiac markers: Recent Labs Component Name 04/27/23 0729 12/02/22 195 CKTOTAL 1,624* - TROPONINI - 0.023 ABG: Recent Labs Component Name 08/05/242031 JAB8SBC 27.2 IMAGING: No results found. ASSESSMENT: Gay Canales is a 33 year old female w/ PMH significant for h/o T2DM, ESRD on HD TTS, HTN, HLD, hx of RUE DVT, anemia, PVD, blindness, s/p L AKA, HFpEF, prior hx of infectious arthritis who presented from OSH for right shoulder pain concerning for septic arthritis, orthopedics and ID consulted for further management. Nephrology consulted for ESRD and for maintenance hemodialysis. PLAN: # ESRD w/ HD MWF - Access: L-IJ Permcath - Electrolytes: K - 5.2 - Acid Base: CO2 - 20 - Volume Status: Euvolemic - strict intake and output - renally dose medications - HD today - continue renal vitamins - Renal diet # Hypertension - BP today is well controlled - currently on amlodipine 10 mg once, Coreg 25 mg bid nd lasix 40 mg on TTS, lisinopril 40 mg daily # Anemia - Hgb - 10.1 - may be secondary to anemia of chronic disease secondary to ESRD - transfuse pRBCs for Hgb<7 - Epogen with HD # Mineral Bone Disease: - Ca - 8.1 - Albumin - 2.3 - PO4 - 5.3 - Continue sevelamer 800 mg tid po #MRSA bacteremia - Currently on Vanc- anticipated EOT on 09/24 - ID and Orthopedics consulted - Abx per ID and primary tyeam - aspiration of R shoulder by IR and drain placement -confirmed with CM and Kidney navigator, antibiotics have been arranged to be given with HD Patient will be seen and discussed with attending physician, Dr. Cuellar. Clifton Burt MD Nephrology Fellow * Roxanna Roth PA-C - 09/01/2024 3:10 PM CDT [facility] Infectious Diseases Inpatient Progress Note Patient Name: Gay Canales 1990 Room: [facility] Date of Admission: 08/26/2024 Date of Service: 09/01/2024 Primary Care Physician: CHERISE MARCELO PA-C Attending Physician: José Brower MD Reason for Infectious Disease Consultation Right shoulder osteomyelitis IMPRESSION Right shoulder osteomyelitis - Worsening Soft tissue gas in right axilla concerning for gas-forming infection History of MRSA bacteremia Diabetes type 2 ESRD on HD Chronic right heel ulcer History of necrotizing left foot soft tissue infection s/p left AKA PAD RECOMMENDATIONS - Continue IV vancomycin pharmacy dosed - Please extend antibiotics an additional 2 weeks from initial planned EOT 09/10/2024 to new EOT 09/24/2024. - Follow IR plans for right shoulder drain. - Please obtain CBC w diff, CMP, ESR, CRP, vancomycin trough at least weekly while on IV antibiotics. Please call the Ortho ID pager [phone] with any questions. Thank you for allowing us to participate in the care of this patient. Today ID will sign off. Infectious Disease Discharge planning: Antibiotics: IV vancomycin with dialysis Duration: EOT 09/24/2024 Suppression: Consider PO doxycycline due to recurrent infections Weekly Labs on IV antibiotics: CBC with diff, CMP, ESR, CRP, vancomycin trough - please fax resultsto [facility] Infectious disease clinic, fax [phone], Attn Roxanna Roth PA-C If there any concerns, please call [facility] infectious disease clinic: phone Follow-up in [facility] ID clinic on: 09/22/2024. [facility] ID clinic [address] [address] Clinic phone [phone] Clinic fax [phone] DISCUSSION Gay Canales is a 33 year old female with PMH of recurrent MRSA bacteremia, essential hypertension, type 2 diabetes mellitus, hyperlipidemia, ESRD on HD TTS- via THC, obesity, HFpEF, PAD, right lower extremity non-healing ischemic ulcers, right foot chronic ulcer with prior right calcaneal osteomyelitis, left foot necrotizing soft tissue infection s/p left AKA, depression, who presents to [facility] for worsening right shoulder pain Right shoulder osteomyelitis - Worsening Soft tissue gas in right axilla concerning for gas-forming infection - 08/26/2024: S/p right shoulder aspiration, predominately bloody tap - 08/29: Right shoulder MRI with fluid collection anterior soft tissue compatible with abscess, - 08/30: IR placement of drain, purulent material sent for culture, no growth - may be sterile abscess - Continue IV vancomycin, EOT 09/24/2024 History of MRSA bacteremia - Blood cultures negative this admission - Previous TTE (07/28) and MATT (07/30) negative for vegetations - Continue IV vancomycin through 09/10/2024 Diabetes type 2 - A1c 6.2 in May 2024 - Treatment Per primary team ESRD on HD - No signs of tunneled line infection this admission Chronic right heel ulcer Chronic osteomyelitis right heel - No sign of infection this admission History of necrotizing left foot soft tissue infection s/p left AKA PAD CDC Screening -Previously negative for HIV and hepatitis C QTC: 452 (05/17/2024) Renal Function: Estimated Creatinine Clearance: 19.1 mL/min (A) (by C-G formula based on SCr of 5.54 mg/dL (H)). Hardware: None Thank you for allowing us to participate in the care of this patient. Today ID will sign off. Please call the [facility] ID pager [phone] with any questions. I spent 35 mins mins in the care of this patient to include chart review, coordination of care, andpatient interview / examination / education independent from the attending physician. I spent an additional 10 mins in discussion with attending physician Dr. Ha regarding patient case. Patient seen and examined, case discussed with ID attending. JESSICA Sorensen, PA-C Division of Infectious Diseases Pager: [phone], [facility] Secure Chat preferred ID Clinic ID Clinic Subjective History of Present Illness: Gay Canales is a 33 year old female with PMH of recurrent MRSA bacteremia, essential hypertension, type 2 diabetes mellitus, hyperlipidemia, ESRD on HDTTS- via THC, obesity, HFpEF, PAD, right lower extremity non-healing ischemic ulcers, right foot chronic ulcer with prior right calcaneal osteomyelitis, left foot necrotizing soft tissue infection s/p left AKA, depression, who presents to [facility] for worsening right shoulder pain. Previous Right ankle and hindfoot osteomyelitis 04/15/2023 right heel wound culture grew Streptococcus agalactiae (Group B), abundant Gram-positive cocci, Gram-positive bacilli, Gram-negative bacilli 04/28/2023 MRI right foot showed calcaneus osteomyelitis, and fifth metatarsal, with associated footcellulitis, myositis, tenosynovitis, and abscess; no surgical intervention; ID recommended empiric therapy with vancomycin, ceftriaxone, metronidazole 05/17/2024 CoNS bacteremia thought to be central line-associated BSI and PICC line-associated DVT; central line removed; step-down oral therapy to doxycycline, ciprofloxacin, metronidazole through 06/07/2023 07/28/2024 CT right foot showed chronic changes, no acute process Previous infection history: February [address] [facility] for MRSA bacteremia with left shoulder septic arthritis 02/22/2024 orthopedic surgery right shoulder aspiration; culture was no growth 02/25/2024 IR US-guided aspiration of left shoulder fluid collection; purulent fluid obtained; culture was no growth; ID recommended vancomycin with HD through 04/07/2024; unfortunately no orders were sent to dialysis center for vancomycin administration and supposedly completed course with linezolid at nursing facility. May [address] [facility] for suspected infectious left shoulder bursitis; ID treated empirically with cefepime and vancomycin for 4 weeks 07/25/2024 - 08/09/2024: Patient admitted to [facility] for MRSA bacteremia (Bcx + 07/25- 07/29). Found to have right shoulder septic arthritis, right subscapularis abscess, right humeral head osteomyelitis, concern for central line-associated BSI which was removed, central line associated acute DVT right IJ.New TDC catheter placed by IR on 08/06/2024. Patient discharged from [facility] with 6 weeks of IV vancomycin from first negative blood culture, EOT 09/10/2024. ID also planned to repeat CT left shoulder towards end of therapy to reassess persistent fluid collection. Patient presented to [facility] on 08/26/2024 for worsening right arm pain that started 1 week ago. She has also noticed a swollen lump over the right shoulder incision. She reports pain most notable with movement of the right arm. She has had some night sweats but no fevers, chills, n/v/d, rashes, itching, shortness of breath, cough. ID consulted for right shoulder osteomyelitis. Already on vancomycin. Hospital course this admission: 08/26/2024: XR right shoulder shows worsening right humeral head/ neck deformity since previous x-rays. There is likely soft tissue gas seen on axillary view concerning for gas-forming infection. Right shoulder aspirated by ortho, cell count 3700, 1mil RBCs. Pathology smear pending. 08/27/2024: MRI C/T/L spine completed negative for infection 08/29/2024: Right shoulder MRI with fluid collection anterior soft tissue compatible with abscess 08/30/2024: IR drain placement right anterior chest wall / shoulder. Cultures in process, prelim nogrowth Interval History Today 09/01/2024: Reports right shoulder pain controlled, hasn't changed since IR drain placement. Tolerating antibiotics with no fevers, chills, n/v/d, rashes, itching. No concerns today. Toleratingvancomycin 08/30/2024: Patient reports decreased shoulder pain but getting pain medications. No n/v/d, rashes,itching, shortness of breath, fevers, chills. Patient reports shoulder pain is improving. Tolerating vancomycin. WBC 9.6 08/27/2024: At time of consult, patient denies fevers, chills, nausea, vomiting, diarrhea, rashes, itching. +Night sweats. No longer having neck or back pain. +Right shoulder pain and swelling particularly with raising the shoulder. WBC 11.0, Hgb 10.1, CRP 1.5, ESR > 130, random vanc 18.3. CMP stable. Tolerating vancomycin with no concerns. Medical History Past Medical History: Diagnosis Date Essential (primary) hypertension Heart failure (HCC) Type 2 diabetes mellitus without complications (HCC) Surgical History Past Surgical History: Procedure Laterality Date DEBRIDEMENT Right 07/27/2024 Right; RIGHT SHOULDER INCISION AND DEBRIDEMENT LEG AMPUTATION ABOVE KNEE Left 12/05/2022 Left; AMPUTATION ABOVE LEFT KNEE Leg Amputation, Below Knee Left 12/02/2022 Left; LEFT ANKLE DISARTICULATION LEVEL 2 @ 2220 Social History Smoking: Former, quit Alcohol: denies history Illicit drugs/IV drug use: Denies history Marital status: Single Children: None Living situation: With sister Pets: None Travel Hx: no international travel Sick contacts: denies recent contacts Incarceration Hx: denies history HIV status: Negative 02/24/2024 Hepatitis Status: Negative 05/31/2024 Prosthetic / Implant History: None Immunizations: Immunization History Administered Date(s) Administered DTP, HISTORIC VACCINE 1992, 02/16/1993, 06/01/1993, 05/08/1994 HEP B VACCINE, PED/ADOL 06/01/1993, 07/27/1993, 03/06/1994 Hib,HISTORIC VACCINE 1992, 02/16/1993, 06/01/1993, 01/04/1994 Human Papilloma Virus Bivalent Vaccine 04/25/2008, 06/24/2008 MENINGOCOCCAL, HISTORIC VACCINE 04/25/2008 MMR, HISTORIC VACCINE 01/04/1994 POLIO OPV 1992, 02/16/1993, 06/01/1993, 03/06/1994 TDAP (7yrs+) 12/02/2022 TDAP, HISTORIC VACCINE 08/14/2006 VARICELLA 08/13/2007, 04/25/2008 Family History Family History Problem Relation Name Age of Onset Diabetes - Type 2 Mother Hypertension Mother Diabetes - Type 2 Father Hypertension Father Diabetes - Type 2 Paternal Grandmother Hypertension Paternal Grandmother Review of Systems Review of Systems Constitutional: Negative for chills, fever and malaise/fatigue. Night sweats HENT: Negative. Eyes: Blind Respiratory: Negative. Cardiovascular: Negative. Gastrointestinal: Negative. Genitourinary: Negative. Musculoskeletal: Right shoulder pain and swelling Skin: Negative. Neurological: Negative. Endo/Heme/Allergies: Negative. Psychiatric/Behavioral: Negative. Allergies No Known Allergies Antimicrobial History Current Antibiotics IV vancomycin (07/26 - present) Prior Antibiotics At [facility] Prior Antibiotics at OSH Home Medications Prior to Admission medications Medication Sig Start Date End Date Taking? Authorizing Provider acetaminophen (Tylenol) 500 MG tablet Take 1 (one) tablet by mouth every 4 hours Maximum allowable Acetaminophen amount = 4 Grams (4000 mg) / 24 hours. Patient not taking: Reported on 08/23/2024 03/02/24 Martine Morrissey MD Alcohol Swabs (Alcohol Prep) 70 % USE ONE SWAB TO CLEAN SKIN FOUR TIMES DAILY BEFORE TESTING Patient not taking: Reported on 08/23/2024 12/12/22 Amanda Georges MD amLODIPine (Norvasc) 10 MG tablet Take 1 (one) tablet by mouth once daily 08/24/24 Yes Kash Ha MD apixaban (Eliquis) 5 MG tablet Take 2 (two) tablets by mouth 2 times daily for 4 days, THEN 1 (one)tablet 2 times daily for 90 days. Patient not taking: Reported on 08/23/2024 08/09/24 11/11/24 Harpreet Katz DO bisacodyl (Dulcolax) 10 MG suppository Insert 1 (one) suppository into the rectum once daily as needed for Constipation Patient not taking: Reported on 08/23/2024 02/28/24 Geronimo Burleson MD blood glucose (OneTouch Verio) test strip USE ONE STRIP TO TEST BLOOD SUGAR FOUR TIMES DAILY Patient not taking: Reported on 08/23/2024 12/12/22 Amanda Georges MD Blood Glucose Monitoring Suppl (OneTouch Verio Reflect) w/Device KIT Use 1 kit 4 times daily USE METER TO CHECK BLOOD GLUCOSE FOUR TIMES DAILY Reasons: CALL [facility] WHEN DELIVERING [id number] Patient not taking: Reported on 08/27/2024 12/12/22 Amanda Georges MD carvedilol (Coreg) 12.5 MG tablet Take 1 (one) tablet by mouth 2 times daily with morning and evening meal 08/24/24 Yes Kash Ha MD FeroSul 325 (65 Fe) MG tablet Take 1 (one) tablet by mouth daily with breakfast 08/08/22 Yes Rebel Garcia MD furosemide (Lasix) 40 MG tablet Take 1 (one) tablet by mouth every Friday, Friday & Friday05/23/23 Yes Willard Estrella MD gabapentin (Neurontin) 300 MG capsule Take 1 (one) capsule by mouth every Friday, Friday & Friday08/09/24 Yes Harpreet Katz DO Gauze Pads & Dressings (Gauze Dressing) 4 X4 PADS Use 1 Pad every 2 days Apply to right shoulder, change dressing every 48 hours, sooner if needed. 08/09/24 Yes Harpreet Katz DO Lancets (ONETOUCH DELICA PLUS 33G EXTRA FINE LANCET) USE ONE LANCET TO PRICK FINGER FOUR TIMES DAILY FOR BLOOD GLUCOSE TESTING Patient not taking: Reported on 08/23/2024 12/12/22 Amanda Georges MD lisinopril (Prinivil; Zestril) 20 MG tablet Take 1 (one) tablet by mouth once daily 08/24/24 Yes Kash Ha MD melatonin 3 MG tablet Take 1 (one) tablet by mouth nightly as needed for Insomnia Patient not taking: Reported on 08/23/2024 05/09/23 Joe Vargas MD oxyCODONE, immediate release, (Roxicodone) 10 MG tablet Take 1 (one) tablet by mouth every 4 hours as needed for Pain Patient not taking: Reported on 08/27/2024 08/09/24 Harpreet Katz DO renal vitamin (Dialyvite) tablet Take 1 (one) tablet by mouth once daily 02/28/24 Yes Geronimo Burleson MD senna (Senokot) 8.6 MG tablet Take 1 (one) tablet by mouth once daily Patient not taking: Reported on 08/23/2024 02/28/24 Geronimo Burleson MD sevelamer carbonate (Renvela) 800 MG Take 1 (one) tablet by mouth 3 times daily with meals 02/28/24 Yes Geronimo Burleson MD vancomycin 750 mg in 0.9% NaCl IV 0.9 % 250 mL 750 (seven hundred fifty) mg by Intravenous route every Friday, , & Friday for 35 days 08/06/24 09/10/24 Yes Rob Cruz MD Objective Vitals BP 129/78 Comment (Patient Position): semi Pulse 80 Temp 98.5 ??F (36.9 ??C) (Oral) Resp 18 Ht 1.702 m (5' 7 ) Wt 113.3 kg (249 lb 11.2 oz) SpO2 100% Temp (24hrs), Av.4 ??F (36.9 ??C), Min:98.1 ??F (36.7 ??C), Max:98.6 ??F (37 ??C) Physical Exam PHYSICAL EXAM General: Alert, no distress, not toxic appearing, sitting up in bed, talking on the phone Head: Normocephalic, atraumatic EENT: +Blind, Nose Normal. No thrush. Dentition Fair. Neck: Supple, No cervical lymphadenopathy. No JVD. Chest wall: No tenderness or deformity. +Left Tunneled HD line present Lungs: Breathing comfortably, no acute distress. Extremities: Right shoulder: Incision to anterior right shoulder, drain in right shoulder with minimal serous drainage. Able to abduct arm to about 90 degrees. Skin: No rashes. Neurologic: Alert and oriented x 3, moving all extremities Psychiatry: Appropriate mood/affect Lines: All lines without signs of infection Peripheral IV Anterior;Left;Proximal Forearm (Active) Placement Date/Time: 08/31/24 1250 Size (Gauge): 22 G Orientation: Anterior;Left;Proximal Location:Forearm Site Prep: Chlorhexidine Technique: Ultrasound Guidance Number of days: 1 Drain 1 Accordian Anterior;Right Shoulder (Active) Placement Date/Time: 08/30/24 1503 Placed by: DR. NUGENT Drain #: 1 Chacra: Accordian Drain Size: 10.2F X 25CM Assistant Reading Teacher Name: JAJA Lot Number: [id number] Orientation: Anterior;Right Location: Shoulder Local Anesthetic Used?: Topical ... Number of days: 2 Other Wound Plantar;Right Foot (Active) Date/Time: 08/30/24 1104 Present on admission?: Yes Orientation: Plantar;Right Location: Foot Number of days: 2 Other Wound Right Shoulder (Active) Date/Time: 08/30/242017 Orientation: Right Location: (c) Shoulder Number of days: 1 Hemodialysis Tunneled Catheter Subclavian (Active) Placement Date: 08/26/24 Dialysis Tunneled Catheter Location: Subclavian Hemodialysis Cath Orientation: Left Number of days: 6 Lab Review CBC: Recent Labs Component Name 08/31/24191708/31/24 0622 08/29/242023 WBC 9.5 9.7 9.6 RBC 3.47* 3.24* 3.10* HGB 10.1* 9.4* 9.1* HCT 33.1* 31.1* 30.2* MCV 95.4 96.0 97.4 BMP: Recent Labs Component Name 08/31/24 19108/31/2462108/29/24202308/28/24202808/26/24 2312 08/25/24 0950 08/09/24 0945 08/07/24 0547 NA 138 137 139 - 140 134* - 138 CL 103 102 104 - 111* 108* - 98 CO2 20* 26 23 - 17* 17* - 26 BUN 31* 22 35* - 34* 27* - 33* CREATININE 5.54* 4.39* 6.51* - 5.04* 3.61* - 6.99* ALB 2.3* 2.2* 2.2* - 2.5* 2.6* - 2.1* PROT - - - - 8.2 8.4* - 7.9 - = values in this interval not displayed. estimated creatinine clearance is 19.1 mL/min (A) (by C-G formula based on SCr of 5.54 mg/dL (H)). LFTs: Recent Labs Component Name 08/26/24231108/25/24 0950 08/07/24 0547 12/02/22 1955 08/25/22 0315 08/24/22 1404 08/24/22 0725 ALKPHOS 215* 216* 106 - - - - ALT 6 8 <5* - - - - AST 13 10 10 - - - - ALBUMIN - - - - 2.0* 2.1* 1.7* LIPASE - 57 - - - - - - = values in this interval not displayed. Coagulation: Recent Labs Component Name 08/07/24 0547 08/06/24 0402 08/05/24 0431 08/04/24 0355 08/04/24 0254 08/03/24 1107 08/03/24 0538 08/02/24 1753 08/02/24 0804 PT - - - - 14.6 - 14.5 - 13.3 INR - - - - 1.2 - 1.2 - 1.0 PTT 35.0 99.3* 97.3* - 169.8* - 150.1* - 43.2* - = values in this interval not displayed. ESR: Recent Labs Component Name 08/25/24 1218 08/01/24 1121 07/25/24 2316 ESR >130* 128* 120* CRP: Recent Labs Component Name 08/25/24 0950 08/23/24 1516 08/01/24 1121 CRP 1.5* 18.7* 10.1* CK: No results for input(s): CK in the last 05654 hours. Microbiology, Imaging and other diagnostic tests MICROBIOLOGY: Blood culture: 08/25: 2/2 No growth 24 hours Right Shoulder Synovial fluid: 08/26/2024: Appearance bloody, 3700 Nucleated cells, 1mil RBCs. Pathology smear pending Right shoulder drain placement cultures: 08/30/2024: No growth to date Other Serologies: 08/25/2024: Covid-12, FluA/B - not detected HISTOPATHOLOGY: None at this admission IMAGING & PROCEDURES: Pertinent images independently reviewed; report in chart MRI RIGHT SHOULDER WWO CONTRAST - ordered IMPRESSION: 1.Extensive bone marrow edema in the [...] and enhancement compatible with cellulitis and myositis. MRI CERVICAL, THORACIC, LUMBAR SPINE WWO CONTRAST 08/27/2024 IMPRESSION: 1. No areas of abnormal contrast [...] could be secondary to known septic arthritis. XR RIGHT SHOULDER 08/26/2024 FINDINGS/IMPRESSION: Deformity at the right humeral head/neck [...] Possible airspace disease within the bilateral lungs. Associated attestation - Kash Ha MD - 09/04/2024 11:57 PM CDT ID ATTENDING ATTESTATION I discussed this patient with the fellow and I agree with the findings and plan of care as documented by the fellow/PA-C. Additionally, I interviewed and examined the patient myself and reviewed labwork, relevant imaging, and relevant history. I agree with the assessment and plan as detailed in thefellow note with the following modifications/additional thoughts only. Briefly: Still c/o pain at the indurated area, right clavicular. Right clavicular induration with drain in place. RECS: EXTEND IV Vancomycin for 2 more weeks from 09/10/24. EOT . Consider oral doxycycline after iv is done. Management of drain per IR. Weekly Labs on IV antibiotics: CBC with diff, CMP, ESR, CRP, vancomycin trough - please fax resultsto [facility], fax [phone], Attn Roxanna Roth PA-C Follow-up in [facility] ID clinic on: 09/22/2024. Please see the fellow/PA-C note for full details. I spent 10 minutes in the care of this patient today, and more than 50% of that time was spent in counseling and coordination of care. Case were discussed with primary team. Pt was seen on 09/01/24. Kash Ha MD Farm Management Supervisor [facility] Infectious Disease Pager: [phone] * Rosita Fields RN - 09/01/2024 3:08 PM CDT Care Coordination Discharge Note Expected Discharge Date: 09/01/2024 Discharge Plan: Discharge order obtained and patient to discharge home at 1600 with [facility] ground crew transport arranged and confirmed by [facility] in care management office. Patient and sister are aware that her home health care agency will call her and arrange her SOC appointment for home care services. Patients IV abx will managed with her dialysis. JIMMIE PENA updated [facility] liaison that patient was discharging today and will have a resumption of IV abx with dialysis. Nursing educated patient sister on drain care. JIMMIE PENA has spoken to [place] [employer] the home care network only contains one agency at this time that can service patients needs if they are able to accept. César Gross [facility] PH:[phone] FX:[phone]. Referral faxed to employee wellness/fitness coordinator Julia for review. JIMMIE PENA will update the team on patients home care status. Patients medications were delivered by meds to beds and Eliquis lifetime coupon was used to cover (1) month supply of Eliquis. Patient will require a new PA. JIMMIE PENA spoke to physician team about this. Family Support (Name and Phone): Extended Emergency Contact Information Primary Emergency Contact: GAYE BEAL Address: [address] [place] Relation: Sister Credit Specialist needed? No Secondary Emergency Contact: Silvia Resendiz Address: [address] [place] Relation: Mother Credit Specialist needed? No Transportation at Discharge: Johnnie Garcia: READMISSION RISK SCORE is 30 at 3:08 PM 09/01/2024.: Name: Rosita Fields RN * Keisha Garner RN - 09/01/2024 1:02 PM CDT Pt hd tx int. Pt tolerates tolerates hd tx well REACHED UF goal 1 L Problem: Infection Goal: Signs and symptoms of infections are decreased or avoided Outcome: Progressing * Keisha Garner RN - 09/01/2024 1:01 PM CDT 09/01/24 1244 Post Hemodialysis Patient Response to Treatment good/ hd tx complete Post Dialysis Patient Status Treatment Completed;Returned to room Ultrafiltration Amount (ml) 1010 Dialyzer Clearance Moderately streaked Amount of blood processed (Liters) 66.2 Post Hemodialysis Comment pt hd tx complete. pt tolerates 1 L removed well. pt awake nd alert . denies pain at this time. V/S WNL. epo given as ordered. uneventful hd tx TX Charge entered in Charge Capture Yes * Antony Murrell RN - 09/01/2024 12:56 PM CDT Drain care instructions provided to sister over the phone. Sister verbalized understanding and provided readback of instructions. Number given should there be questions once patient arrives at home * Trinidad Holloway, PharmD - 09/01/2024 12:13 PM CDT DISCHARGE HEART FAILURE CARE PATHWAY HFpEF (LVEF 50% or greater) Carvedilol 25 mg BID Lisinopril 20 mg daily GDMT Target Doses ARB / ACEI: Prescribed at discharge and not at target dose: due to hyperkalemia/ESRD. ARNI not prescribed on discharge due to unknown. 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) End of treatment date: 09/10 Current dosing regimen: 750 mg,dosing post HD sessions Recent Labs Component Name 09/01/24 0638 08/31/24 1918 08/31/24 0622 08/29/24202308/28/24202808/27/24 1222 08/05/24203124 0431 05/22/23 0521 05/21/23 0450 05/20/23 0918 05/17/23 2151 05/09/23 0357 05/08/23 0841 04/29/23 0338 04/28/23 0319 04/27/232018 CREATININE - 5.54* 4.39* 6.51* 5.33* - - 6.11* - 1.62* - - 1.83* - - 1.39* - BUN - 31* 22 35* 30* - - 30* - 13 - - 17 - - 13 - VANCORNDM 19.9 - - - - 18.3 - 14.6 - - - - - - - - - VANCTROUGH - - - - - - - - - 15.5 - - 19.5 - - 34.6* - VANCOPEAK - - - - - - - - - - 20.1* - - 26.1 - - 46.6* - = values in this interval not displayed. Microbiology: Recent Labs Component Name 02/22/24 2709 MRSADPCR Detected* MRSA positive: Yes Other pertinent micro: No Renal: Considered difficult to accurately assess at this time as patient is on intermittent hemodialysis (iHD) with last session 08/30 and next planned 09/01. Level(s): Patient is on iHD with expected clearance of 20-30% per iHD session, the level reported in chart above is expected to be within therapeutic range (10-20 mcg/ml) after next HD session. Plan Dosing: Will continue current regimen to target prehd level 15-20 mcg/ml. Monitoring Will order a vancomycin random level weekly, next level due 09/08 at 0400 and adjust regimen if indicated. Continue to monitor patient???s renal function and cultures as needed. Mor Durand, Mixing Supervisor 09/01/2024 8:[address] [facility] Health Vancomycin Guideline SUBJECTIVE/OBJECTIVE Gay Canales is a 33 year old female. Height: 5' 7 (170.2 cm) Wt 113.3 kg (249 lb 11.2 oz) Body mass index is 39.11 kg/m??. Vancomycin Administrations from JAN (last 72 hours) Date/Time Action Medication Dose Rate 08/30/242045 $ New Bag/Syringe vancomycin (Vancocin) 750 mg in 0.9% NaCl IV 250 mL IVPB 750 mg 333.33 mL/hr * Keisha Garner RN - 09/01/2024 6:55 AM CDT REPORT BEFORE DIALYSIS Diagnosis (BOBBY/CKF): CRF Non-Renal Diagnosis:<principal problem not specified>RIGHT SHOULDER SEPIC Isolation:Contact Does patient have signs or symptoms of respiratory infection (fever, cough, shortness of breath): NO Allergies:No Known Allergies Code Status:Full Code Orientation Status: X 3 On telemetry/Rhythm: NO Oxygen:NO Given any medications: SE MAR Need for pain medications: YES SEE MAR Blood pressure issues: HTN On any drips: NO Is patient diabetic: YES Any labs to draw: NO Any other procedures today:NO Any concerns about this patient: DRAIN RIGHT SHOULDER/BLIND Any medications to be given with dialysis: EPO Due date of next Central Line Dressing change: LEFT SUB 08/31/24-09/07/24 Primary RN Nurse:ANTONY LOPEZ RN [id number] * Solange Chowdhury RN - 09/01/2024 4:03 AM CDT Problem: Pain/Discomfort Goal: Patient exhibits reduced pain/discomfort as evidenced by pain scores Outcome: Progressing Goal: Patient uses pharmacological and non-pharmacological pain management strategies. Outcome: Progressing Goal: Patient verbalizes acceptable level of pain relief and ability to engage in desired activity. Outcome: Progressing Problem: Hemodynamic Status/Cardiac Output Goal: Patient has stable vital signs and fluid balance Outcome: Progressing Problem: Fluid and Electrolyte Imbalance Goal: Fluid and electrolyte balance are achieved/maintained Outcome: Progressing Problem: Infection Goal: Signs and symptoms of infections are decreased or avoided Outcome: Progressing Problem: Fall Risk Goal: Fall risk and fall related injury risk are minimized (interventions related to the fall risk can be found in the flowsheet documentation) Outcome: Progressing Problem: Skin Integrity Goal: Skin integrity is maintained or improved Outcome: Progressing Problem: Tissue injury due to various disease processes Goal: Provide optimal wound healing environment Outcome: Progressing Problem: Tissue Injury Due to External Forces of Pressure, Friction, and Shear Goal: Protect Skin from External Forces Outcome: Progressing Goal: Maintain and Improve Tissue Tolerance to Pressure Outcome: Progressing Problem: Transfers Goal: STG - Transfer from bed to chair Outcome: Progressing * Clifton Burt MD - 08/31/2024 1:17 PM CDT [facility] Department of Nephrology Progress Note Date of Admission: 08/26/2024 Length of Stay: 4 Date of Service: 08/27/2024 Consulting Service: [facility] Medicine Reason for Consult: ESRD w/ HD HISTORY: Per initial consult note: Gay Canales is a 33 year old female w/ PMH significant for ESRD w/ HD MWF via left TDC h/o T2DM,ESRD on HD TTS, HTN, HLD, hx of RUE DVT, anemia, PVD, blindness, s/p L AKA, HFpEF, prior hx of infectious arthritis who presented from OSH for right shoulder pain concerning for septic arthritis, orthopedics and ID consulted for further management. Nephrology consulted for ESRD and for maintenance hemodialysis. Cause of ESRD: most likely HTN and DM Urine: Yes Access: [facility] Dialysis Center: [facility] Dialysis Days: MWF Dialysis Duration: 3 Hours 0 Minutes Last Dialysis: 08/25/2024 Urban Renewal Manager: Dr. Millan INTERVAL HISTORY: - No complains this am, right shoulder drain in place. Continues to be on Vancomycin. Anticipated EOT on 09/10/24 per primary team note Past Medical History: Diagnosis Date Essential (primary) hypertension Heart failure (HCC) Type 2 diabetes mellitus without complications (HCC) Past Surgical History: Procedure Laterality Date DEBRIDEMENT Right 07/27/2024 Right; RIGHT SHOULDER INCISION AND DEBRIDEMENT LEG AMPUTATION ABOVE KNEE Left 12/05/2022 Left; AMPUTATION ABOVE LEFT KNEE Leg Amputation, Below Knee Left 12/02/2022 Left; LEFT ANKLE DISARTICULATION LEVEL 2 @ 2220 Family History Problem Relation Name Age of Onset Diabetes - Type 2 Mother Hypertension Mother Diabetes - Type 2 Father Hypertension Father Diabetes - Type 2 Paternal Grandmother Hypertension Paternal Grandmother Social History: Social History Socioeconomic History Marital status: Single Spouse name: Not on file Number of children: Not on file Years of education: Not on file Highest education level: Not on file Occupational History Not on file Tobacco Use Smoking status: Former Types: Cigarettes Start date: 2010 Smokeless tobacco: Never Tobacco comments: Quit 4-5 months after starting Vaping Use Vaping status: Never Used Substance and Sexual Activity Alcohol use: Not Currently Comment: Occassionally Drug use: Not Currently Types: Marijuana Comment: At age 20 for 4-5 months Sexual activity: Not Currently Other Topics Concern Not on file Social History Narrative Not on file Social Determinants of Health Financial Resource Strain: Low Risk (07/26/2024) Overall Financial Resource Strain (CARDIA) Difficulty of Paying Living Expenses: Not hard at all Food Insecurity: No Food Insecurity (07/26/2024) Hunger Vital Sign Worried About Running Out of Food in the Last Year: Never true Ran Out of Food in the Last Year: Never true Transportation Needs: No Transportation Needs (07/26/2024) PRAPARE - Transportation Lack of Transportation (Medical): No Lack of Transportation (Non-Medical): No Stress: No Stress Concern Present (07/26/2024) [employer] [place] [employer] - Occupational Stress Questionnaire Feeling of Stress : Not at all Housing Stability: Low Risk (07/26/2024) Housing Stability Vital Sign Unable to Pay for Housing in the Last Year: No Number of Places Lived in the Last Year: 2 Unstable Housing in the Last Year: No Recent Concern: Housing Stability - High Risk (05/23/2024) Housing Stability Vital Sign Unable to Pay for Housing in the Last Year: No Number of Places Lived in the Last Year: 7 Unstable Housing in the Last Year: No Allergies: No Known Allergies Home Medications: No current facility-administered medications on file prior to encounter. Current Outpatient Medications on File Prior to Encounter Medication Sig Dispense Refill acetaminophen (Tylenol) 500 MG tablet Take 1 (one) tablet by mouth every 4 hours Maximum allowable Acetaminophen amount = 4 Grams (4000 mg) / 24 hours. (Patient not taking: Reported on 08/23/2024) Alcohol Swabs (Alcohol Prep) 70 % USE ONE SWAB TO CLEAN SKIN FOUR TIMES DAILY BEFORE TESTING (Patient not taking: Reported on 08/23/2024) 100 Each PRN amLODIPine (Norvasc) 10 MG tablet Take 1 (one) tablet by mouth once daily 30 tablet 0 apixaban (Eliquis) 5 MG tablet Take 2 (two) tablets by mouth 2 times daily for 4 days, THEN 1 (one)tablet 2 times daily for 90 days. (Patient not taking: Reported on 08/23/2024) 196 tablet 0 bisacodyl (Dulcolax) 10 MG suppository Insert 1 (one) suppository into the rectum once daily as needed for Constipation (Patient not taking: Reported on 08/23/2024) blood glucose (Janalakshmi Verio) test strip USE ONE STRIP TO TEST BLOOD SUGAR FOUR TIMES DAILY (Patient not taking: Reported on 08/23/2024) 100 strip PRN Blood Glucose Monitoring Suppl (Janalakshmi Verio Reflect) w/Device KIT Use 1 kit 4 times daily USE METER TO CHECK BLOOD GLUCOSE FOUR TIMES DAILY Reasons: CALL [facility] WHEN DELIVERING X4364 (Patient not taking: Reported on 08/27/2024) 1 kit 0 carvedilol (Coreg) 12.5 MG tablet Take 1 (one) tablet by mouth 2 times daily with morning and evening meal 60 tablet 0 FeroSul 325 (65 Fe) MG tablet Take 1 (one) tablet by mouth daily with breakfast furosemide (Lasix) 40 MG tablet Take 1 (one) tablet by mouth every Friday, Friday & Friday 0 gabapentin (Neurontin) 300 MG capsule Take 1 (one) capsule by mouth every Friday, Friday & Friday 30 capsule 0 Gauze Pads & Dressings (Gauze Dressing) 4 X4 PADS Use 1 Pad every 2 days Apply to right shoulder, change dressing every 48 hours, sooner if needed. 24 Each 1 Lancets (TradyoTOUCH DELICA PLUS 33G EXTRA FINE LANCET) USE ONE LANCET TO PRICK FINGER FOUR TIMES DAILY FOR BLOOD GLUCOSE TESTING (Patient not taking: Reported on 08/23/2024) 100 Each PRN lisinopril (Prinivil; Zestril) 20 MG tablet Take 1 (one) tablet by mouth once daily 30 tablet 0 melatonin 3 MG tablet Take 1 (one) tablet by mouth nightly as needed for Insomnia (Patient not taking: Reported on 08/23/2024) oxyCODONE, immediate release, (Roxicodone) 10 MG tablet Take 1 (one) tablet by mouth every 4 hours as needed for Pain (Patient not taking: Reported on 08/27/2024) 12 tablet 0 renal vitamin (Dialyvite) tablet Take 1 (one) tablet by mouth once daily senna (Senokot) 8.6 MG tablet Take 1 (one) tablet by mouth once daily (Patient not taking: Reportedon 08/23/2024) sevelamer carbonate (Renvela) 800 MG Take 1 (one) tablet by mouth 3 times daily with meals vancomycin 750 mg in 0.9% NaCl IV 0.9 % 250 mL 750 (seven hundred fifty) mg by Intravenous route every Friday, , & Friday for 35 days Hospital Medications: 0.9% NaCl 3 mL Intracatheter q8h acetaminophen 1,000 mg Oral q8h amLODIPine 5 mg Oral QDAY apixaban 5 mg Oral BID carvedilol 25 mg Oral BID WC furosemide 40 mg Oral , & FRI gabapentin 300 mg Oral FRI, FRI AND FRI insulin aspart 0-6 Units Subcutaneous TID WC lidocaine 1 patch Transdermal q24h lisinopril 20 mg Oral QDAY methocarbamol 500 mg Oral q8h polyethylene glycol 3350 17 g Oral QDAY renal vitamin 1 tablet Oral QDAY senna-docusate 1 tablet Oral QDAY sevelamer carbonate 800 mg Oral TID WC vancomycin 750 mg Intravenous FRI, FRI AND FRI vancomycin (VANCOCIN) IV dose per pharmacy Does not apply DIRECTED PRN Meds: SALINE LOCK, INSERT AND MAINTAIN AND 0.9% NaCl AND 0.9% NaCl dextrose IV for hypoglycemia OR dextrose IV for hypoglycemia OR glucagon glucose (Diabetic Use) gel HYDROmorphone oxyCODONE (immediate release) OR oxyCODONE (immediate release) OBJECTIVE: Vitals: 08/31/24 0430 08/31/24 0756 08/31/24 0907 08/31/24 1239 BP: 125/78 97/57 102/68 113/66 Pulse: 79 77 74 73 Resp: 16 18 Temp: 98.8 ??F (37.1 ??C) 98.2 ??F (36.8 ??C) 98.8 ??F (37.1 ??C) SpO2: 100% 95% 98% Weight: Height: Estimated body mass index is 38.2 kg/m?? as calculated from the following: Height as of this encounter: 1.702 m (5' 7 ). Weight as of this encounter: 110.6 kg (243 lb 14.4 oz). Intake/Output Summary (Last 24 hours) at 08/31/2024 1317 Last data filed at 08/31/2024 1003 Gross per 24 hour Intake 430 ml Output 2700 ml Net -2270 ml Physical Exam: Physical Exam Constitutional: Appearance: Normal appearance. Cardiovascular: Rate and Rhythm: Normal rate and regular rhythm. Heart sounds: Normal heart sounds. Pulmonary: Effort: Pulmonary effort is normal. Breath sounds: Normal breath sounds. Abdominal: General: Bowel sounds are normal. Palpations: Abdomen is soft. Neurological: General: No focal deficit present. Mental Status: She is alert and oriented to person, place, and time. Mental status is at baseline. Access: Left [facility] LABS: CBC: Recent Labs Component Name 08/31/2462108/29/24202308/28/242028 WBC 9.7 9.6 10.1 HGB 9.4* 9.1* 8.9* HCT 31.1* 30.2* 29.5* MCV 96.0 97.4 98.3* BMP: Recent Labs Component Name 08/31/2462108/29/24202308/28/242028 NA 137 139 138 CL 102 104 102 CO2 BUN 22 35* 30* CREATININE 4.39* 6.51* 5.33* Recent Labs Component Name 08/31/2462108/29/24202308/28/242028 CALCIUM 8.0* 7.8* 7.8* PHOS 4.2 6.2* 5.7* LFT: Recent Labs Component Name 08/31/2462108/29/24202308/28/24202808/26/24 2312 08/25/24 0950 08/09/24 0945 08/07/24 0547 PROT - - - 8.2 8.4* - 7.9 ALB 2.2* 2.2* 2.3* 2.5* 2.6* - 2.1* ALKPHOS - - - 215* 216* - 106 AST - - - 13 10 - 10 ALT - - - 6 8 - <5* TBILI - - - 0.2 0.3 - 0.2 - = values in this interval not displayed. Recent Labs Component Name 08/25/24 0950 LIPASE 57 No results for input(s): TSH in the last 21098 hours. Coagulation: Recent Labs Component Name 08/04/24 0254 08/03/24 0538 08/02/24 0804 PT 14.6 14.5 13.3 INR 1.2 1.2 1.0 Cardiac markers: Recent Labs Component Name 04/27/23 0729 12/02/22 1955 CKTOTAL 1,624* - TROPONINI - 0.023 ABG: Recent Labs Component Name 08/05/242031 [id number] 27.2 IMAGING: No results found. ASSESSMENT: Gay Canales is a 33 year old female w/ PMH significant for h/o T2DM, ESRD on HD TTS, HTN, HLD, hx of RUE DVT, anemia, PVD, blindness, s/p L AKA, HFpEF, prior hx of infectious arthritis who presented from OSH for right shoulder pain concerning for septic arthritis, orthopedics and ID consulted for further management. Nephrology consulted for ESRD and for maintenance hemodialysis. PLAN: # ESRD w/ HD MWF - Access: L-IJ Permcath - Electrolytes: K - 4.5 - Acid Base: CO2 - 26 - Volume Status: Euvolemic - strict intake and output - renally dose medications - plan for hemodialysis tomorrow - continue renal vitamins - Renal diet # Hypertension - BP today is well controlled - currently on amlodipine 10 mg once, Coreg 25 mg bid nd lasix 40 mg on TTS, lisinopril 40 mg daily # Anemia - Hgb - 9.4 - may be secondary to anemia of chronic disease secondary to ESRD - transfuse pRBCs for Hgb<7 - Epogen with HD # Mineral Bone Disease: - Ca - 8 - Albumin - 2.2 - PO4 - 4.2 - Continue sevelamer 800 mg tid po #MRSA bacteremia - Currently on Vanc- anticipated EOT on 09/10 - ID and Orthopedics consulted - Abx per ID and primary tyeam - aspiration of R shoulder by IR and drain placement Patient will be seen and discussed with attending physician, Dr. Cuellar. Clifton Burt MD Nephrology Fellow Associated attestation - Octavio Cuellar MD - 08/31/2024 4:01 PM CDT The patient was seen and examined with the house staff. Please see further details in the house staff note. I have reviewed the house staff note and agree with its contents and plan of care . * Tammy Aviles RN - 08/31/2024 1:03 PM CDT Problem: Pain/Discomfort Goal: Patient exhibits reduced pain/discomfort as evidenced by pain scores Outcome: Progressing Goal: Patient uses pharmacological and non-pharmacological pain management strategies. Outcome: Progressing Goal: Patient verbalizes acceptable level of pain relief and ability to engage in desired activity. Outcome: Progressing Problem: Fall Risk Goal: Fall risk and fall related injury risk are minimized (interventions related to the fall risk can be found in the flowsheet documentation) Outcome: Progressing Problem: Skin Integrity Goal: Skin integrity is maintained or improved Outcome: Progressing Problem: Tissue injury due to various disease processes Goal: Provide optimal wound healing environment Outcome: Progressing * Briana Larson PA-C - 08/31/2024 9:43 AM CDT Vascular & Interventional Radiology Progress Note Admit date: 08/26/2024 Hospital Day: 6 Subjective: HPI: 3 year old female with PMHx of recurrent MRSA bacteremia, essential HTN, T2DM, hyperlipidemia,ESRD on HD, CHF, PAD w. 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 Patient with multiple admission this year for MRSA bacteremia, most recent 07/25 - 08/09. Found to have right shoulder septic arthritis, right subscapularis abscess and right humeral head osteomyelitis. Patient eventually discharged with 6 weeks IV vancomycin (EOT 09/10/2024). This visit, ortho consulted in ED and completed right shoulder joint aspiration, fluid studies withlow concern for active septic arthritis. MRI of right shoulder demonstrates a 7.6X4.0X5.7 peripherally enhancing fluid collection containing gas in the anterior soft tissue involving deltoid and pectoralis muscles. The patient underwent aspiration with 10 Fr drain placement into right shoulder intramuscular abscess on 08/30/24 (POD#1). Interval history: Patient without complaints. 25cc drain output recorded overnight. HDS, afebrile. WBC: 9.7. Objective: Physical examination: BP 102/68 (BP Location: Left arm, Patient Position: Lying) Pulse 74 Temp 98.2 ??F (36.8 ??C) Resp 16 Ht 1.702 m (5' 7 ) Wt 110.6 kg (243 lb 14.4 oz) SpO2 95% Estimated body mass index is 38.2 kg/m?? as calculated from the following: Height as of this encounter: 1.702 m (5' 7 ). Weight as of this encounter: 110.6 kg (243 lb 14.4 oz). General: no acute distress HEENT: atraumatic Lungs: normal respiratory effort CV: regular rate Extremities: right shoulder drain in place, dressing CDI. No kaylee-catheter leakage or tenderness. Serosanguineous fluid in tubing and <5cc collection in accordion bag Psych: AOx3 Laboratory results: Recent Labs Component Name 08/31/2462108/29/24202308/28/24202812/03/22 0242 12/02/22 1955 WBC 9.7 9.6 10.1 - 42.0* HGB 9.4* 9.1* 8.9* - 8.9* HCT 31.1* 30.2* 29.5* - 28.3* PLTCOUNT 398 407 406 - 556* PLATELET - - - - Occasional* - = values in this interval not displayed. Recent Labs Component Name 08/04/24 0254 08/03/24 0538 08/02/24 0804 INR 1.2 1.2 1.0 Recent Labs Component Name 08/31/2462108/29/24202308/28/242028 NA 137 139 138 GLUCOSE 197* 177* 215* CREATININE 4.39* 6.51* 5.33* EGFR 13* 8* 10* Recent Labs Component Name 08/31/2462108/29/24202308/28/24202808/26/24 2312 08/25/24 0950 08/09/24 0945 08/07/24 0547 ALB 2.2* 2.2* 2.3* 2.5* 2.6* - 2.1* TBILI - - - 0.2 0.3 - 0.2 ALT - - - 6 8 - <5* AST - - - 13 10 - 10 ALKPHOS - - - 215* 216* - 106 - = values in this interval not displayed. Medications: Scheduled: 0.9% NaCl 3 mL Intracatheter q8h acetaminophen 1,000 mg Oral q8h amLODIPine 5 mg Oral QDAY carvedilol 25 mg Oral BID WC furosemide 40 mg Oral TU, THUR & SAT gabapentin 300 mg Oral MON, FRI AND FRI gadoterate meglumine Intravenous Contrast - Once insulin aspart 0-6 Units Subcutaneous TID WC lidocaine 1 patch Transdermal q24h lisinopril 20 mg Oral QDAY methocarbamol 500 mg Oral q8h polyethylene glycol 3350 17 g Oral QDAY renal vitamin 1 tablet Oral QDAY senna-docusate 1 tablet Oral QDAY sevelamer carbonate 800 mg Oral TID WC vancomycin 750 mg Intravenous FRI, FRI AND FRI vancomycin (VANCOCIN) IV dose per pharmacy Does not apply DIRECTED PRN: SALINE LOCK, INSERT AND MAINTAIN AND 0.9% NaCl AND 0.9% NaCl dextrose IV for hypoglycemia OR dextrose IV for hypoglycemia OR glucagon glucose (Diabetic Use) gel HYDROmorphone oxyCODONE (immediate release) OR oxyCODONE (immediate release) Infusions: Imaging: CT US Guided Needle Placement Result Date: 08/31/2024 Impression: Successful ultrasound-guided placement of a 10 Swiss pigtail drainage catheter in right intramuscular abscess, as described above. The aspirate was viscous and purulent, and approximately 15 mL of fluid were drained during the procedure. I, Dr. Shayla Nugent, was present and performe d/supervised the entire procedure. IShayla have personally reviewed and interpreted this examination/study. > Interpreting Provider: Shayla Nugent on 08/31/2024 9:09 AM MRI Shoulder Right Wwo Cont Result Date: 08/30/2024 IMPRESSION: 1.Extensive bone marrow edema in the humeral head with erosions, a glenohumeral effusion, and synovitis. These findings are compatible with septic arthritis and osteomyelitis. 2.Increasedfluid in the subacromial-subdeltoid bursa with associated enhancement compatible with bursitis. 3.A7.6 x 4.0 x 5.7 fluid collection containing gas in the anterior soft tissues compatible with abscess. 4.Extensive soft tissue edema and enhancement compatible with cellulitis and myositis. > Dictated by Kranthi Alvarez MD, (executive vice president and chief operating officer). Xander Kim MD have personally reviewed and interpreted this examination/study. > Interpreting Provider: Xander De Guzman MD on 08/30/2024 9:01 AM MRI Thoracic Spine Wwo Cont Result Date: 08/27/2024 IMPRESSION: 1. No areas of abnormal contrast enhancement noted throughout the spine. Multilevel mild to moderate facet arthropathy in the lower lumbar spine otherwise no significant degenerative changes noted including cervical and thoracic spine. 2. No abnormal cord signal within the limits of thestudy. 3. Partially visualized prominent lymph nodes in the posterior mediastinum/left upper para-aortic region also seen on prior study. Partially visualized enhancement in the right shoulder with enlarged right axillary lymph nodes could be secondary to known septic arthritis. This study was dictated by executive vice president and chief operating officer Anam Pearson MD and reviewed and edited by the attending. Mery Kim MD have personally reviewed and interpreted this examination/study. > Interpreting Provider: Mery Esqueda MD on 08/27/2024 12:10 PM MRI Cervical Spine Wwo Cont Result Date: 08/27/2024 IMPRESSION: 1. No areas of abnormal contrast enhancement noted throughout the spine. Multilevel mild to moderate facet arthropathy in the lower lumbar spine otherwise no significant degenerative changes noted including cervical and thoracic spine. 2. No abnormal cord signal within the limits of thestudy. 3. Partially visualized prominent lymph nodes in the posterior mediastinum/left upper para-aortic region also seen on prior study. Partially visualized enhancement in the right shoulder with enlarged right axillary lymph nodes could be secondary to known septic arthritis. This study was dictated by executive vice president and chief operating officer Anam Pearson MD and reviewed and edited by the attending. Mery Kim MD have personally reviewed and interpreted this examination/study. > Interpreting Provider: Mery Esqueda MD on 08/27/2024 12:10 PM MRI Lumbar Spine Wwo Contrast Result Date: 08/27/2024 IMPRESSION: 1. No areas of abnormal contrast enhancement noted throughout the spine. Multilevel mild to moderate facet arthropathy in the lower lumbar spine otherwise no significant degenerative changes noted including cervical and thoracic spine. 2. No abnormal cord signal within the limits of thestudy. 3. Partially visualized prominent lymph nodes in the posterior mediastinum/left upper para-aortic region also seen on prior study. Partially visualized enhancement in the right shoulder with enlarged right axillary lymph nodes could be secondary to known septic arthritis. This study was dictated by executive vice president and chief operating officer Anam Pearson MD and reviewed and edited by the attending. I, Mery Esqueda MD have personally reviewed and interpreted this examination/study. > Interpreting Provider: Mery Esqueda MD on 08/27/2024 12:10 PM Assessment: 33 yo female s/p aspiration with 10 Fr drain placement into right shoulder intramuscular abscess on08/30/24. 10cc NS flushed into catheter at bedside without issue. Plan: Keep catheter open for external drainage, and record daily catheter output. Flush the catheter with 10 mL saline Q 8 hrs. Keep dressing clean and dry at all times. Change dressing Q 24-48 hours. Change dressing earlier ifit becomes wet or soiled. If the output falls below 5 mL/day for three consecutive days, please call IR to schedule the patient for a tube check to evaluate for possible repositioning/removal. Contact IR if the catheter stops draining, if there is pericatheter leakage, or if the catheter is inadvertently pulled out. Primary team to provide prescription for saline flushes and dressing supplies upon discharge Thank you for allowing us to participate in the care of this patient. Please do not hesitate to contact us with further questions or concerns. Briana Larson PA-C Vascular and Interventional Radiology [facility]: [phone] [place] [facility]: [phone] Associated attestation - Kiko Price MD - 09/01/2024 1:18 PM CDT I agree with above findings, evaluation, and plan. Kiko Price MD Farm Management Supervisor, Vascular & Interventional Radiology [facility] 09/01/2024 1:18 PM * José Brower MD - 08/31/2024 7:36 AM CDT HOSPITALIST PROGRESS NOTE Patient name: Gay L [facility] Day: 4 OBJECTIVE Seen and examined this morning No acute overnight issues hemodynamically stable OBJECTIVE Temp: [98.2 ??F (36.8 ??C)-98.8 ??F (37.1 ??C)] 98.8 ??F (37.1 ??C) Pulse: [70-82] 79 Resp: [11-18] 16 BP: (96-154)/(65-96) 125/78 I/O last 2 completed shifts: In: 920 [P.O.:920] Out: 3225 [Urine:1200; Drains:25] Gen: Alert, cooperative, in no acute distress CV: Regular S1 & S2. Lungs: Clear to auscultation bilaterally Abdomen: BS+, soft, non-tender, non-distended Extremities: TTP R shoulder joint, preserved ROM, incision site c/d/i, L AKA, No edema noted Neuro: No gross focal neurologic deficits noted Scheduled Meds 0.9% NaCl 3 mL Intracatheter q8h acetaminophen 1,000 mg Oral q8h amLODIPine 10 mg Oral QDAY carvedilol 25 mg Oral BID WC furosemide 40 mg Oral TUES, THUR & SAT gabapentin 300 mg Oral MON, WED AND FRI gadoterate meglumine Intravenous Contrast - Once insulin aspart 0-6 Units Subcutaneous TID WC lidocaine 1 patch Transdermal q24h lisinopril 40 mg Oral QDAY methocarbamol 500 mg Oral q8h polyethylene glycol 3350 17 g Oral QDAY renal vitamin 1 tablet Oral QDAY senna-docusate 1 tablet Oral QDAY sevelamer carbonate 800 mg Oral TID WC vancomycin 750 mg Intravenous MON, WED AND FRI vancomycin (VANCOCIN) IV dose per pharmacy Does not apply DIRECTED Infusions PRN Meds SALINE LOCK, INSERT AND MAINTAIN AND 0.9% NaCl AND 0.9% NaCl dextrose IV for hypoglycemia OR dextrose IV for hypoglycemia OR glucagon glucose (Diabetic Use) gel HYDROmorphone oxyCODONE (immediate release) OR oxyCODONE (immediate release) I personally reviewed all pertinent labs and imaging Essential hypertension (POA: Yes) Swelling of right upper extremity (POA: Yes) ESRD (end stage renal disease) (HCC) (POA: Yes) ESR raised (POA: Yes) Type 2 diabetes mellitus with diabetic polyneuropathy, without long-term current use of insulin (HCC) (POA: Yes) Chronic bilateral back pain, unspecified back location (POA: Yes) Chronic osteomyelitis of right shoulder region (HCC) (POA: Yes) ASSESSMENT & PLAN Right shoulder pain and swelling, improved History of septic arthritis/ostemyelitis of Both shoulder MRSA bacteremia, multiple soft tissue abscesses - Synovial fluid analysis in the ED showing bloody red fluid with 3,700 total nucleated cells 83% neutrophils, - Significant infectious history with prior history of multiple septic arthritis episodes of bilateral shoulders, osteomyelitis of right leg s/p above the knee amputation, MRSA bacteremia, and multiple soft tissue abscesses of trunk and upper extremities. - Right shoulder tapped by ortho in ED, analysis was bland, - ortho has low concern for active septic arthritis given these studies and patient's ROM on exam. No clearly identified etiology for extensive infectious history. - Immunoglobulin studies ordered in 2021 with mildly reduced IgG to 663 (normal 700-1600). PLAN: - Continue vancomycin (anticipated EOT 09/10/24) - No acute intervention per Orthopedics, no concern for hematoma contributing to shoulder sxs. No acute intervention. Ok to resume Eliquis. - ID consulted, appreciate assistance - MRI Rt shoulder wwo contrast reviewed, anterior soft tissue fluid collection with gas concerning for abscess, appears to communicate with glenohumeral joint space, spoke with ID and ortho, IR consulted for aspiration with culture and possible drain placement, - drain placed on 08/30. IR recommendation- Keep catheter open for external drainage, and record daily catheter output. Flush the catheter with 10 mL saline Q 8 hrs. Keep dressing clean and dry at all times. Change dressing Q 24-48 hours. Change dressing earlier ifit becomes wet or soiled. If the output falls below 5 mL/day for three consecutive days, please call IR to schedule the patient for a tube check to evaluate for possible repositioning/removal. Contact IR if the catheter stops draining, if there is pericatheter leakage, or if the catheter is inadvertently pulled out. T2DM with diabetic retinopathy, nephropathy, peripheral neuropathy Right plantar diabetic foot wound, POA Diagnosed aged 18, at one point was on insulin. Last A1c 7.4% - SSI with meals - continue home gabapentin 300 mg MWF - wound consult for R foot wound care ESRD on HD MWF Anemia of chronic disease - Nephrology consulted for HD - continue home iron supplement - continue home Lasix 40 mg po MWF - continue home renal vitamin, Sevelamer History of provoked DVT 07/30 plan for 3 months AC, started during last admission, however patient has been off since 08/09, unable to fill Rx - Eliquis 5 mg bid, hold for drainage, resume as per ortho Back pain, improved - PT/OT, multimodal pain control PVD R heel ulcer, POA - Wound care consult placed - Regular dressing changes HTN HLD Anemia HFpEF - last TTE 07/30/24 showing normal LV systolic function prior study 05/2024 demonstrated grade II diastolic dysfunction - carvedilol to 25 mg bid, lisinopril to 40 mg daily, and continue home amlodipine 10 mg daily Incidental findings requiring follow up: Diet: DIET RENAL DVT Prophylaxis: Apixaban 5mg BID, holding now, resume as per ortho and IR Code Status: Full Code Dispo: await MRI R shoulder, pain control. José Damian MD General Internal Medicine 08/31/2024 * Danita Dutta RN - 08/31/2024 5:18 AM CDT Problem: Pain/Discomfort Goal: Patient exhibits reduced pain/discomfort as evidenced by pain scores Outcome: Progressing Goal: Patient uses pharmacological and non-pharmacological pain management strategies. Outcome: Progressing Goal: Patient verbalizes acceptable level of pain relief and ability to engage in desired activity. Outcome: Progressing Problem: Hemodynamic Status/Cardiac Output Goal: Patient has stable vital signs and fluid balance Outcome: Progressing Problem: Fluid and Electrolyte Imbalance Goal: Fluid and electrolyte balance are achieved/maintained Outcome: Progressing Problem: Infection Goal: Signs and symptoms of infections are decreased or avoided Outcome: Progressing Problem: Fall Risk Goal: Fall risk and fall related injury risk are minimized (interventions related to the fall risk can be found in the flowsheet documentation) Outcome: Progressing Problem: Skin Integrity Goal: Skin integrity is maintained or improved Outcome: Progressing Problem: Tissue injury due to various disease processes Goal: Provide optimal wound healing environment Outcome: Progressing Problem: Tissue Injury Due to External Forces of Pressure, Friction, and Shear Goal: Protect Skin from External Forces Outcome: Progressing Goal: Maintain and Improve Tissue Tolerance to Pressure Outcome: Progressing Problem: Transfers Goal: STG - Transfer from bed to chair Outcome: Progressing * Keisha Garner RN - 08/30/2024 6:30 PM CDT Pt hd tx int. Pt tolerates hd tx well Uf goal 2.5 - 3 L ( reached 2 L ) Problem: Infection Goal: Signs and symptoms of infections are decreased or avoided Outcome: Progressing * Clifton Burt MD - 08/30/2024 4:17 PM CDT [facility] Department of Nephrology Progress Note Date of Admission: 08/26/2024 Length of Stay: 3 Date of Service: 08/27/2024 Consulting Service: [facility] Reason for Consult: ESRD w/ HD HISTORY: Per initial consult note: Gay Canales is a 33 year old female w/ PMH significant for ESRD w/ HD MWF via left TDC h/o T2DM,ESRD on HD TTS, HTN, HLD, hx of RUE DVT, anemia, PVD, blindness, s/p L AKA, HFpEF, prior hx of infectious arthritis who presented from OSH for right shoulder pain concerning for septic arthritis, orthopedics and ID consulted for further management. Nephrology consulted for ESRD and for maintenance hemodialysis. She denies any complains of shoulder pain, CP/SOB, N/V/D, abdo pain, any fever or chills or any other complains this am. Lying in bed comfortably. Afebrile, HDS, VSS. Her labs showed K of 5.4, bicarb of 17. Saturating well on RA. Orthopedics consulted and no any intervention per them. I D consulted for abx management and pending final recs. Currently on Vanc for MRSA bacteremia from past and BC from 08/25 pending. Cause of ESRD: most likely HTN and DM Urine: Yes Access: L[facility] Dialysis Center: [facility] Dialysis Days: MWF Dialysis Duration: 3 Hours 0 Minutes Last Dialysis: 08/25/2024 Urban Renewal Manager: Dr. Millan INTERVAL HISTORY: - Aspiration of R shoulder by IR today and HD after that Past Medical History: Diagnosis Date Essential (primary) hypertension Heart failure (HCC) Type 2 diabetes mellitus without complications (HCC) Past Surgical History: Procedure Laterality Date DEBRIDEMENT Right 07/27/2024 Right; RIGHT SHOULDER INCISION AND DEBRIDEMENT LEG AMPUTATION ABOVE KNEE Left 12/05/2022 Left; AMPUTATION ABOVE LEFT KNEE Leg Amputation, Below Knee Left 12/02/2022 Left; LEFT ANKLE DISARTICULATION LEVEL 2 @ 2220 Family History Problem Relation Name Age of Onset Diabetes - Type 2 Mother Hypertension Mother Diabetes - Type 2 Father Hypertension Father Diabetes - Type 2 Paternal Grandmother Hypertension Paternal Grandmother Social History: Social History Socioeconomic History Marital status: Single Spouse name: Not on file Number of children: Not on file Years of education: Not on file Highest education level: Not on file Occupational History Not on file Tobacco Use Smoking status: Former Types: Cigarettes Start date: 2010 Smokeless tobacco: Never Tobacco comments: Quit 4-5 months after starting Vaping Use Vaping status: Never Used Substance and Sexual Activity Alcohol use: Not Currently Comment: Occassionally Drug use: Not Currently Types: Marijuana Comment: At age 20 for 4-5 months Sexual activity: Not Currently Other Topics Concern Not on file Social History Narrative Not on file Social Determinants of Health Financial Resource Strain: Low Risk (07/26/2024) Overall Financial Resource Strain (CARDIA) Difficulty of Paying Living Expenses: Not hard at all Food Insecurity: No Food Insecurity (07/26/2024) Hunger Vital Sign Worried About Running Out of Food in the Last Year: Never true Ran Out of Food in the Last Year: Never true Transportation Needs: No Transportation Needs (07/26/2024) PRAPARE - Transportation Lack of Transportation (Medical): No Lack of Transportation (Non-Medical): No Stress: No Stress Concern Present (07/26/2024) [employer] [place] [employer] - Occupational Stress Questionnaire Feeling of Stress : Not at all Housing Stability: Low Risk (07/26/2024) Housing Stability Vital Sign Unable to Pay for Housing in the Last Year: No Number of Places Lived in the Last Year: 2 Unstable Housing in the Last Year: No Recent Concern: Housing Stability - High Risk (05/23/2024) Housing Stability Vital Sign Unable to Pay for Housing in the Last Year: No Number of Places Lived in the Last Year: 7 Unstable Housing in the Last Year: No Allergies: No Known Allergies Home Medications: No current facility-administered medications on file prior to encounter. Current Outpatient Medications on File Prior to Encounter Medication Sig Dispense Refill acetaminophen (Tylenol) 500 MG tablet Take 1 (one) tablet by mouth every 4 hours Maximum allowable Acetaminophen amount = 4 Grams (4000 mg) / 24 hours. (Patient not taking: Reported on 08/23/2024) Alcohol Swabs (Alcohol Prep) 70 % USE ONE SWAB TO CLEAN SKIN FOUR TIMES DAILY BEFORE TESTING (Patient not taking: Reported on 08/23/2024) 100 Each PRN amLODIPine (Norvasc) 10 MG tablet Take 1 (one) tablet by mouth once daily 30 tablet 0 apixaban (Eliquis) 5 MG tablet Take 2 (two) tablets by mouth 2 times daily for 4 days, THEN 1 (one)tablet 2 times daily for 90 days. (Patient not taking: Reported on 08/23/2024) 196 tablet 0 bisacodyl (Dulcolax) 10 MG suppository Insert 1 (one) suppository into the rectum once daily as needed for Constipation (Patient not taking: Reported on 08/23/2024) blood glucose (OneTouch Verio) test strip USE ONE STRIP TO TEST BLOOD SUGAR FOUR TIMES DAILY (Patient not taking: Reported on 08/23/2024) 100 strip PRN Blood Glucose Monitoring Suppl (OneTouch Verio Reflect) w/Device KIT Use 1 kit 4 times daily USE METER TO CHECK BLOOD GLUCOSE FOUR TIMES DAILY Reasons: CALL [facility] WHEN DELIVERING X4364 (Patient not taking: Reported on 08/27/2024) 1 kit 0 carvedilol (Coreg) 12.5 MG tablet Take 1 (one) tablet by mouth 2 times daily with morning and evening meal 60 tablet 0 FeroSul 325 (65 Fe) MG tablet Take 1 (one) tablet by mouth daily with breakfast furosemide (Lasix) 40 MG tablet Take 1 (one) tablet by mouth every Friday, Friday & Friday 0 gabapentin (Neurontin) 300 MG capsule Take 1 (one) capsule by mouth every Friday, Friday & Friday 30 capsule 0 Gauze Pads & Dressings (Gauze Dressing) 4 X4 PADS Use 1 Pad every 2 days Apply to right shoulder, change dressing every 48 hours, sooner if needed. 24 Each 1 Lancets (ONETOUCH DELICA PLUS 33G EXTRA FINE LANCET) USE ONE LANCET TO PRICK FINGER FOUR TIMES DAILY FOR BLOOD GLUCOSE TESTING (Patient not taking: Reported on 08/23/2024) 100 Each PRN lisinopril (Prinivil; Zestril) 20 MG tablet Take 1 (one) tablet by mouth once daily 30 tablet 0 melatonin 3 MG tablet Take 1 (one) tablet by mouth nightly as needed for Insomnia (Patient not taking: Reported on 08/23/2024) oxyCODONE, immediate release, (Roxicodone) 10 MG tablet Take 1 (one) tablet by mouth every 4 hours as needed for Pain (Patient not taking: Reported on 08/27/2024) 12 tablet 0 renal vitamin (Dialyvite) tablet Take 1 (one) tablet by mouth once daily senna (Senokot) 8.6 MG tablet Take 1 (one) tablet by mouth once daily (Patient not taking: Reportedon 08/23/2024) sevelamer carbonate (Renvela) 800 MG Take 1 (one) tablet by mouth 3 times daily with meals vancomycin 750 mg in 0.9% NaCl IV 0.9 % 250 mL 750 (seven hundred fifty) mg by Intravenous route every Friday, , & Friday for 35 days Hospital Medications: 0.9% NaCl 3 mL Intracatheter q8h acetaminophen 1,000 mg Oral q8h amLODIPine 10 mg Oral QDAY carvedilol 25 mg Oral BID WC furosemide 40 mg Oral , & FRI gabapentin 300 mg Oral FRI, FRI AND FRI gadoterate meglumine Intravenous Contrast - Once insulin aspart 0-6 Units Subcutaneous TID WC lidocaine 1 patch Transdermal q24h lisinopril 40 mg Oral QDAY methocarbamol 500 mg Oral q8h polyethylene glycol 3350 17 g Oral QDAY renal vitamin 1 tablet Oral QDAY senna-docusate 1 tablet Oral QDAY sevelamer carbonate 800 mg Oral TID vancomycin 750 mg Intravenous MON, WED AND FRI vancomycin (VANCOCIN) IV dose per pharmacy Does not apply DIRECTED PRN Meds: SALINE LOCK, INSERT AND MAINTAIN AND 0.9% NaCl AND 0.9% NaCl dextrose IV for hypoglycemia OR dextrose IV for hypoglycemia OR glucagon glucose (Diabetic Use) gel HYDROmorphone oxyCODONE (immediate release) OR oxyCODONE (immediate release) OBJECTIVE: Vitals: 08/30/24 1515 08/30/24 1540 08/30/24 1550 08/30/24 1600 BP: 138/83 122/77 124/79 Pulse: 74 70 74 Resp: 13 Temp: 98.6 ??F (37 ??C) 98.5 ??F (36.9 ??C) SpO2: 94% Weight: Height: Estimated body mass index is 38.06 kg/m?? as calculated from the following: Height as of this encounter: 1.702 m (5' 7 ). Weight as of this encounter: 110.2 kg (243 lb). Intake/Output Summary (Last 24 hours) at 08/30/2024 1618 Last data filed at 08/30/2024 1510 Gross per 24 hour Intake 920 ml Output 860 ml Net 60 ml Physical Exam: Physical Exam Constitutional: Appearance: Normal appearance. Cardiovascular: Rate and Rhythm: Normal rate and regular rhythm. Heart sounds: Normal heart sounds. Pulmonary: Effort: Pulmonary effort is normal. Breath sounds: Normal breath sounds. Abdominal: General: Bowel sounds are normal. Palpations: Abdomen is soft. Neurological: General: No focal deficit present. Mental Status: She is alert and oriented to person, place, and time. Mental status is at baseline. Access: Left TDC LABS: CBC: Recent Labs Component Name 08/29/24202308/28/24202808/26/24 2312 WBC 9.6 10.1 11.0* HGB 9.1* 8.9* 10.1* HCT 30.2* 29.5* 33.2* MCV 97.4 98.3* 95.4 BMP: Recent Labs Component Name 08/29/24202308/28/24202808/26/24 2312 NA 139 138 140 CL 104 102 111* CO2 17* BUN 35* 30* 34* CREATININE 6.51* 5.33* 5.04* Recent Labs Component Name 08/29/24202308/28/24202808/26/242 08/25/24 0950 08/09/24 0945 CALCIUM 7.8* 7.8* 8.7 - 8.6 PHOS 6.2* 5.7* - - 4.9 - = values in this interval not displayed. LFT: Recent Labs Component Name 08/29/24202308/28/24202808/26/242 08/25/24 0950 08/09/24 0945 08/07/24 0547 PROT - - 8.2 8.4* - 7.9 ALB 2.2* 2.3* 2.5* 2.6* - 2.1* ALKPHOS - - 215* 216* - 106 AST - - 13 10 - 10 ALT - - 6 8 - <5* TBILI - - 0.2 0.3 - 0.2 - = values in this interval not displayed. Recent Labs Component Name 08/25/24 0950 LIPASE 57 No results for input(s): TSH in the last 78250 hours. Coagulation: Recent Labs Component Name 08/04/24 0254 08/03/24 0538 08/02/24 0804 PT 14.6 14.5 13.3 INR 1.2 1.2 1.0 Cardiac markers: Recent Labs Component Name 04/27/23 0729 12/02/22 1955 CKTOTAL 1,624* - TROPONINI - 0.023 ABG: Recent Labs Component Name 08/05/242031 [id number] 27.2 IMAGING: No results found. ASSESSMENT: Gay Canales is a 33 year old female w/ PMH significant for h/o T2DM, ESRD on HD TTS, HTN, HLD, hx of RUE DVT, anemia, PVD, blindness, s/p L AKA, HFpEF, prior hx of infectious arthritis who presented from OSH for right shoulder pain concerning for septic arthritis, orthopedics and ID consulted for further management. Nephrology consulted for ESRD and for maintenance hemodialysis. PLAN: # ESRD w/ HD MWF - Access: L-IJ Permcath - Electrolytes: K - 4.4 - Acid Base: CO2 - 23 - Volume Status: Euvolemic - strict intake and output - renally dose medications - plan for hemodialysis today - continue renal vitamins - Renal diet # Hypertension - BP today is well controlled - currently on amlodipine 10 mg once, Coreg 25 mg bid nd lasix 40 mg on TTS, lisinopril 40 mg daily # Anemia - Hgb - 9.1 - may be secondary to anemia of chronic disease secondary to ESRD - transfuse pRBCs for Hgb<7 # Mineral Bone Disease: - Ca - 7.8 - Albumin - 2.2 - PO4 - 6.2 - Continue sevelamer 800 mg tid po #MRSA bacteremia - Currently on Vanc - ID and Orthopedics consulted - Abx per ID and primary tyeam - aspiration of R shoulder by IR today Patient will be seen and discussed with attending physician, Dr. Cuellar. Clifton Burt MD Nephrology Fellow * Khloe Lowery - 08/30/2024 4:04 PM CDT Updated progress notes sent to patient's Outpatient Hemodialysis Dialysis center. Khloe Lowery Kidney Navigator/ [facility] Ascom: [phone] Office: [phone] * Roxanna Roth PA-C - 08/30/2024 3:40 PM CDT Images from the original note were not included. [facility] Infectious Diseases Consultation Patient Name: Gay Canales 1990 Room: OR/OR Date of Admission: 08/26/2024 Date of Service: 08/30/2024 Primary Care Physician: CHERISE MARCELO PA-C Attending Physician: Noe Rabago MD Reason for Infectious Disease Consultation Right shoulder osteomyelitis IMPRESSION Right shoulder osteomyelitis - Worsening Soft tissue gas in right axilla concerning for gas-forming infection History of MRSA bacteremia Diabetes type 2 ESRD on HD Chronic right heel ulcer History of necrotizing left foot soft tissue infection s/p left AKA PAD RECOMMENDATIONS - Continue IV vancomycin pharmacy dosed - Right shoulder MRI with fluid collection anterior soft tissue compatible with abscess, appreciateIR assistance - Follow results of IR fluid collection aspiration. - Please obtain CBC w diff, CMP, ESR, CRP, vancomycin trough at least weekly while on IV antibiotics. Please call the [facility] ID pager [phone] with any questions. DISCUSSION Gay Canales is a 33 year old female with PMH of recurrent MRSA bacteremia, essential hypertension, type 2 diabetes mellitus, hyperlipidemia, ESRD on HD TTS- via THC, obesity, HFpEF, PAD, right lower extremity non-healing ischemic ulcers, right foot chronic ulcer with prior right calcaneal osteomyelitis, left foot necrotizing soft tissue infection s/p left AKA, depression, who presents to [facility] for worsening right shoulder pain Right shoulder osteomyelitis - Worsening Soft tissue gas in right axilla concerning for gas-forming infection - 08/26/2024: S/p right shoulder aspiration, predominately bloody tap - 08/29: Right shoulder MRI with fluid collection anterior soft tissue compatible with abscess, - 08/30: IR placement of drain, purulent material sent for culture - Continue IV vancomycin History of MRSA bacteremia - Blood cultures negative this admission - Previous TTE (07/28) and MATT (07/30) negative for vegetations - Continue IV vancomycin through 09/10/2024 Diabetes type 2 - A1c 6.2 in May 2024 - Treatment Per primary team ESRD on HD - No signs of tunneled line infection this admission Chronic right heel ulcer Chronic osteomyelitis right heel - No sign of infection this admission History of necrotizing left foot soft tissue infection s/p left AKA PAD CDC Screening -Previously negative for HIV and hepatitis C QTC: 452 (05/17/2024) Renal Function: Estimated Creatinine Clearance: 16 mL/min (A) (by C-G formula based on SCr of 6.51 mg/dL (H)). Hardware: None Thank you for allowing us to participate in the care of this patient. We will continue to follow and monitor with you closely. Please call the Ortho ID pager [phone] with any questions. I spent 35 mins mins in the care of this patient to include chart review, coordination of care, andpatient interview / examination / education independent from the attending physician. I spent an additional 10 mins in discussion with attending physician Dr. Ha regarding patient case. Patient seen and examined, case discussed with ID attending. JESSICA Sorensen PA-C Division of Infectious Diseases Pager: [phone], Epic Secure Chat preferred ID Clinic ID Clinic Subjective History of Present Illness: Gay Canales is a 33 year old female with PMH of recurrent MRSA bacteremia, essential hypertension, type 2 diabetes mellitus, hyperlipidemia, ESRD on HDTTS- via THC, obesity, HFpEF, PAD, right lower extremity non-healing ischemic ulcers, right foot chronic ulcer with prior right calcaneal osteomyelitis, left foot necrotizing soft tissue infection s/p left AKA, depression, who presents to [facility] for worsening right shoulder pain. Previous Right ankle and hindfoot osteomyelitis 04/15/2023 right heel wound culture grew Streptococcus agalactiae (Group B), abundant Gram-positive cocci, Gram-positive bacilli, Gram-negative bacilli 04/28/2023 MRI right foot showed calcaneus osteomyelitis, and fifth metatarsal, with associated footcellulitis, myositis, tenosynovitis, and abscess; no surgical intervention; ID recommended empiric therapy with vancomycin, ceftriaxone, metronidazole 05/17/2024 CoNS bacteremia thought to be central line-associated BSI and PICC line-associated DVT; central line removed; step-down oral therapy to doxycycline, ciprofloxacin, metronidazole through 06/07/2023 07/28/2024 CT right foot showed chronic changes, no acute process Previous infection history: February [address] [facility] for MRSA bacteremia with left shoulder septic arthritis 02/22/2024 orthopedic surgery right shoulder aspiration; culture was no growth 02/25/2024 IR US-guided aspiration of left shoulder fluid collection; purulent fluid obtained; culture was no growth; ID recommended vancomycin with HD through 04/07/2024; unfortunately no orders were sent to dialysis center for vancomycin administration and supposedly completed course with linezolid at nursing facility. May [address] [facility] for suspected infectious left shoulder bursitis; ID treated empirically with cefepime and vancomycin for 4 weeks 07/25/2024 - 08/09/2024: Patient admitted to [facility] for MRSA bacteremia (Bcx + 07/25- 07/29). Found to have right shoulder septic arthritis, right subscapularis abscess, right humeral head osteomyelitis, concern for central line-associated BSI which was removed, central line associated acute DVT right IJ.New TDC catheter placed by IR on 08/06/2024. Patient discharged from [facility] with 6 weeks of IV vancomycin from first negative blood culture, EOT 09/10/2024. ID also planned to repeat CT left shoulder towards end of therapy to reassess persistent fluid collection. Patient presented to [facility] on 08/26/2024 for worsening right arm pain that started 1 week ago. She has also noticed a swollen lump over the right shoulder incision. She reports pain most notable with movement of the right arm. She has had some night sweats but no fevers, chills, n/v/d, rashes, itching, shortness of breath, cough. ID consulted for right shoulder osteomyelitis. Already on vancomycin. Hospital course this admission: 08/26/2024: XR right shoulder shows worsening right humeral head/ neck deformity since previous x-rays. There is likely soft tissue gas seen on axillary view concerning for gas-forming infection. Right shoulder aspirated by ortho, cell count 3700, 1mil RBCs. Pathology smear pending. 08/27/2024: MRI C/T/L spine completed negative for infection 08/29/2024: Right shoulder MRI with fluid collection anterior soft tissue compatible with abscess 08/30/2024: IR drain placement right anterior chest wall / shoulder. Cultures in process. Interval History Today 08/30/2024: Patient reports decreased shoulder pain but getting pain medications. No n/v/d, rashes, itching, shortness of breath, fevers, chills. Patient reports shoulder pain is improving. Tolerating vancomycin. WBC 9.6 08/27/2024: At time of consult, patient denies fevers, chills, nausea, vomiting, diarrhea, rashes, itching. +Night sweats. No longer having neck or back pain. +Right shoulder pain and swelling particularly with raising the shoulder. WBC 11.0, Hgb 10.1, CRP 1.5, ESR > 130, random vanc 18.3. CMP stable. Tolerating vancomycin with no concerns. Medical History Past Medical History: Diagnosis Date Essential (primary) hypertension Heart failure (HCC) Type 2 diabetes mellitus without complications (HCC) Surgical History Past Surgical History: Procedure Laterality Date DEBRIDEMENT Right 07/27/2024 Right; RIGHT SHOULDER INCISION AND DEBRIDEMENT LEG AMPUTATION ABOVE KNEE Left 12/05/2022 Left; AMPUTATION ABOVE LEFT KNEE Leg Amputation, Below Knee Left 12/02/2022 Left; LEFT ANKLE DISARTICULATION LEVEL 2 @ 2220 Social History Smoking: Former, quit Alcohol: denies history Illicit drugs/IV drug use: Denies history Marital status: Single Children: None Living situation: With sister Pets: None Travel Hx: no international travel Sick contacts: denies recent contacts Incarceration Hx: denies history HIV status: Negative 02/24/2024 Hepatitis Status: Negative 05/31/2024 Prosthetic / Implant History: None Immunizations: Immunization History Administered Date(s) Administered DTP, HISTORIC VACCINE 1990, 02/16/1993, 06/01/1993, 05/08/1994 HEP B VACCINE, PED/ADOL 06/01/1993, 07/27/1993, 03/06/1994 Hib,HISTORIC VACCINE 1992, 02/16/1993, 06/01/1993, 01/04/1994 Human Papilloma Virus Bivalent Vaccine 04/25/2008, 06/24/2008 MENINGOCOCCAL, HISTORIC VACCINE 04/25/2008 MMR, HISTORIC VACCINE 01/04/1994 POLIO OPV 1990, 02/16/1993, 06/01/1993, 03/06/1994 TDAP (7yrs+) 12/02/2022 TDAP, HISTORIC VACCINE 08/14/2006 VARICELLA 08/13/2007, 04/25/2008 Family History Family History Problem Relation Name Age of Onset Diabetes - Type 2 Mother Hypertension Mother Diabetes - Type 2 Father Hypertension Father Diabetes - Type 2 Paternal Grandmother Hypertension Paternal Grandmother Review of Systems Review of Systems Constitutional: Negative for chills, fever and malaise/fatigue. Night sweats HENT: Negative. Eyes: Blind Respiratory: Negative. Cardiovascular: Negative. Gastrointestinal: Negative. Genitourinary: Negative. Musculoskeletal: Right shoulder pain and swelling Skin: Negative. Neurological: Negative. Endo/Heme/Allergies: Negative. Psychiatric/Behavioral: Negative. Allergies No Known Allergies Antimicrobial History Current Antibiotics IV vancomycin (07/26 - present) Prior Antibiotics At [facility] Prior Antibiotics at OSH Home Medications Prior to Admission medications Medication Sig Start Date End Date Taking? Authorizing Provider acetaminophen (Tylenol) 500 MG tablet Take 1 (one) tablet by mouth every 4 hours Maximum allowable Acetaminophen amount = 4 Grams (4000 mg) / 24 hours. Patient not taking: Reported on 08/23/2024 03/02/24 Martine Morrissey MD Alcohol Swabs (Alcohol Prep) 70 % USE ONE SWAB TO CLEAN SKIN FOUR TIMES DAILY BEFORE TESTING Patient not taking: Reported on 08/23/2024 12/12/22 Amanda Georges MD amLODIPine (Norvasc) 10 MG tablet Take 1 (one) tablet by mouth once daily 08/24/24 Yes Kash Ha MD apixaban (Eliquis) 5 MG tablet Take 2 (two) tablets by mouth 2 times daily for 4 days, THEN 1 (one)tablet 2 times daily for 90 days. Patient not taking: Reported on 08/23/2024 08/09/24 11/11/24 Harpreet Katz DO bisacodyl (Dulcolax) 10 MG suppository Insert 1 (one) suppository into the rectum once daily as needed for Constipation Patient not taking: Reported on 08/23/2024 02/28/24 Geronimo Burleson MD blood glucose (OneTouch Verio) test strip USE ONE STRIP TO TEST BLOOD SUGAR FOUR TIMES DAILY Patient not taking: Reported on 08/23/2024 12/12/22 Amanda Georges MD Blood Glucose Monitoring Suppl (OneTouch Verio Reflect) w/Device KIT Use 1 kit 4 times daily USE METER TO CHECK BLOOD GLUCOSE FOUR TIMES DAILY Reasons: CALL [facility] WHEN DELIVERING [id number] Patient not taking: Reported on 08/27/2024 12/12/22 Amanda Georges MD carvedilol (Coreg) 12.5 MG tablet Take 1 (one) tablet by mouth 2 times daily with morning and evening meal 08/24/24 Yes Kash Ha MD FeroSul 325 (65 Fe) MG tablet Take 1 (one) tablet by mouth daily with breakfast 08/08/22 Yes Rebel Garcia MD furosemide (Lasix) 40 MG tablet Take 1 (one) tablet by mouth every Friday, Friday & Friday05/23/23 Yes Willard Estrella MD gabapentin (Neurontin) 300 MG capsule Take 1 (one) capsule by mouth every Friday, Friday & Friday08/09/24 Yes Harpreet Katz DO Gauze Pads & Dressings (Gauze Dressing) 4 X4 PADS Use 1 Pad every 2 days Apply to right shoulder, change dressing every 48 hours, sooner if needed. 08/09/24 Yes Harpreet Katz DO Lancets (ONETOUCH DELICA PLUS 33G EXTRA FINE LANCET) USE ONE LANCET TO PRICK FINGER FOUR TIMES DAILY FOR BLOOD GLUCOSE TESTING Patient not taking: Reported on 08/23/2024 12/12/22 Amanda Georges MD lisinopril (Prinivil; Zestril) 20 MG tablet Take 1 (one) tablet by mouth once daily 08/24/24 Yes Kash Ha MD melatonin 3 MG tablet Take 1 (one) tablet by mouth nightly as needed for Insomnia Patient not taking: Reported on 08/23/2024 05/09/23 Joe Vargas MD oxyCODONE, immediate release, (Roxicodone) 10 MG tablet Take 1 (one) tablet by mouth every 4 hours as needed for Pain Patient not taking: Reported on 08/27/2024 08/09/24 Harpreet Katz DO renal vitamin (Dialyvite) tablet Take 1 (one) tablet by mouth once daily 02/28/24 Yes Geronimo Burleson MD senna (Senokot) 8.6 MG tablet Take 1 (one) tablet by mouth once daily Patient not taking: Reported on 08/23/2024 02/28/24 Geronimo Burleson MD sevelamer carbonate (Renvela) 800 MG Take 1 (one) tablet by mouth 3 times daily with meals 02/28/24 Yes Geronimo Burleson MD vancomycin 750 mg in 0.9% NaCl IV 0.9 % 250 mL 750 (seven hundred fifty) mg by Intravenous route every Friday, , & Friday for 35 days 08/06/24 09/10/24 Yes Rob Cruz MD Objective Vitals BP 138/83 Pulse 74 Temp 98.2 ??F (36.8 ??C) (Oral) Resp 13 Ht 1.702 m (5' 7 ) Wt 110.2 kg(243 lb) SpO2 94% Temp (24hrs), Av.4 ??F (36.9 ??C), Min:98.2 ??F (36.8 ??C), Max:98.8 ??F (37.1 ??C) Physical Exam PHYSICAL EXAM General: Alert, no distress, not toxic appearing, sitting up in bed, getting ready to eat. Head: Normocephalic, atraumatic EENT: +Blind, Nose Normal. No thrush. Dentition Fair. Neck: Supple, No cervical lymphadenopathy. No JVD. Chest wall: No tenderness or deformity. +Left Tunneled HD line present Lungs: Breathing comfortably, no acute distress. Extremities: Right shoulder: Incision to anterior right shoulder, there is a large / semi-solid well demarcated mass just medial to the incision site, there is a small area of fluctuance / blisteringappearance to the lateral edge of the incision with bleeding. There is some tenderness in the rightaxilla. Skin: No rashes. Neurologic: Alert and oriented x 3, moving all extremities Psychiatry: Appropriate mood/affect Lines: All lines without signs of infection Peripheral IV Left;Posterior Hand (Active) Placement Date/Time: 08/30/24 0217 Size (Gauge): 22 G Orientation: Left;Posterior Location: Hand Site Prep: Chlorhexidine ;Alcohol Number of days: 0 Drain 1 Accordian Anterior;Right Shoulder (Active) Placement Date/Time: 08/30/24 1503 Placed by: DR. NUGENT Drain #: 1 Chacra: Accordian Drain Size: 10.2F X 25CM Assistant Reading Teacher Name: bookletmobile Lot Number: [id number] Orientation: Anterior;Right Location: Shoulder Local Anesthetic Used?: Topical ... Number of days: 0 Other Wound Plantar;Right Foot (Active) Date/Time: 08/30/24 1104 Present on admission?: Yes Orientation: Plantar;Right Location: Foot Number of days: 0 Hemodialysis Tunneled Catheter Subclavian The Original SoupMan 15.5 (Active) Placement Date/Time: 08/06/24 1158 Placed by: Fredi Harmon MD Dialysis Tunneled Catheter Location: Subclavian Hemodialysis Cath Orientation: Left Assistant Reading Teacher/Model : The Original SoupMan Model: Duraflow 2 Reference Number: [id number] Lot Number: [id number]... Number of days: 24 Hemodialysis Tunneled Catheter Subclavian (Active) Placement Date: 08/26/24 Dialysis Tunneled Catheter Location: Subclavian Hemodialysis Cath Orientation: Left Number of days: 4 08/26/2024: Right shoulder Lab Review CBC: Recent Labs Component Name 08/29/24202308/28/24202808/26/242311 WBC 9.6 10.1 11.0* RBC 3.10* 3.00* 3.48* HGB 9.1* 8.9* 10.1* HCT 30.2* 29.5* 33.2* MCV 97.4 98.3* 95.4 BMP: Recent Labs Component Name 08/29/24202308/28/24202808/26/24231108/25/2450 08/09/24 0945 08/07/24 0547 NA 139 138 140 134* - 138 CL 104 102 111* 108* - 98 CO2 17* 17* - 26 BUN 35* 30* 34* 27* - 33* CREATININE 6.51* 5.33* 5.04* 3.61* - 6.99* ALB 2.2* 2.3* 2.5* 2.6* - 2.1* PROT - - 8.2 8.4* - 7.9 - = values in this interval not displayed. estimated creatinine clearance is 16 mL/min (A) (by C-G formula based on SCr of 6.51 mg/dL (H)). LFTs: Recent Labs Component Name 08/26/24231108/25/2450 08/07/24 0547 12/02/22195408/25/22 0315 08/24/22 1404 08/24/22 0725 ALKPHOS 215* 216* 106 - - - - ALT 6 8 <5* - - - - AST 13 10 10 - - - - ALBUMIN - - - - 2.0* 2.1* 1.7* LIPASE - 57 - - - - - - = values in this interval not displayed. Coagulation: Recent Labs Component Name 08/07/24 0547 08/06/24 0402 08/05/24 0431 08/04/24 0355 08/04/24 0254 08/03/24 1107 08/03/24 0538 08/02/24 1753 08/02/24 0804 PT - - - - 14.6 - 14.5 - 13.3 INR - - - - 1.2 - 1.2 - 1.0 PTT 35.0 99.3* 97.3* - 169.8* - 150.1* - 43.2* - = values in this interval not displayed. ESR: Recent Labs Component Name 08/25/24 1218 08/01/24 1121 07/25/24 2316 ESR >130* 128* 120* CRP: Recent Labs Component Name 08/25/24 0950 08/23/24 1516 08/01/24 1121 CRP 1.5* 18.7* 10.1* CK: No results for input(s): CK in the last 37417 hours. Microbiology, Imaging and other diagnostic tests MICROBIOLOGY: Blood culture: 08/25: 2/2 No growth 24 hours Right Shoulder Synovial fluid: 08/26/2024: Appearance bloody, 3700 Nucleated cells, 1mil RBCs. Pathology smear pending Other Serologies: 08/25/2024: Covid-12, FluA/B - not detected HISTOPATHOLOGY: None at this admission IMAGING & PROCEDURES: Pertinent images independently reviewed; report in chart MRI RIGHT SHOULDER WWO CONTRAST - ordered IMPRESSION: 1.Extensive bone marrow edema in the [...] and enhancement compatible with cellulitis and myositis. MRI CERVICAL, THORACIC, LUMBAR SPINE WWO CONTRAST 08/27/2024 IMPRESSION: 1. No areas of abnormal contrast [...] could be secondary to known septic arthritis. XR RIGHT SHOULDER 08/26/2024 FINDINGS/IMPRESSION: Deformity at the right humeral head/neck [...] Possible airspace disease within the bilateral lungs. Associated attestation - Kash Ha MD - 08/31/2024 1:11 AM CDT ID ATTENDING ATTESTATION I discussed this patient with the PA-C and I agree with the findings and plan of care as documentedby the PA-C. I did not examine the patient myself but I have reviewed labwork, relevant imaging, and relevant history. I agree with the assessment and plan as detailed in the PA-C note with the following modifications/additional thoughts only. Briefly: This is a 33-year-old -[place] female with PMH of ESRD on HD known to ID service for right shoulder osteomyelitis secondary to MRSA. She was admitted on 08/26/2024 for right shoulder pain. Underwent MRI which showed fluid collection anterior soft tissue compatible with abscess. Orthopedics aspirated right shoulder in ED which was red in color and with 3700 nucleated cells, 83% neutrophils, 12% eosinophils. Orthopedics has also low concern for active septic arthritis and has no intervention planned. IR was consulted for fluid collection aspiration which was done on 08/30 and drain was placed. Purulent material sent for culture. Gram stain showed no organism but with light PMNs.Cultures no growth to date both aerobic and anaerobic. She remains on vancomycin. History of DVT of internal jugular vein and superficial thrombosis of the right cephalic vein on venous duplex 07/30/2024 admission. She was discharged home last admission with a prescription for Eliquis but it needed prior authorization so she was not on Eliquis at home. Per orthopedic, okay to resume Eliquis for DVT yesterday. Recommendation: Continue IV vancomycin for MRSA infection Follow culture of purulent material from soft tissue at the right anterior clavicle and will adjustantibiotic/antimicrobial as needed. Final duration and regimen are to be determined. Please see the PA-C note for full details. Kash Ha MD Farm Management Supervisor [facility] Infectious Disease Pager: [phone] * Keyla Kay RN - 08/30/2024 3:24 PM CDT Interventional Radiology Nursing - End Procedure Note 10 FR DRAIN PLACEMENT IN RIGHT ANTERIOR SHOULDER. (WITH FLUID ASPIRATE/ LABS SENT) Sedation: None Procedure start time: 1455 hours Procedure end time: 1523 hours Additional drugs: None * Keyla Kay RN - 08/30/2024 2:48 PM CDT Inpatient without HCG test preformed during admission. Patient states she only urinates once a dayand already went today . Dr. Nugent updated, as procedure using CT guidance and sedation cannot proceed without HCG testing. Patient attempted to urinate but unable to at this time. Confirmed with pre/post RNs and reviewed [facility] HCG policy. Patient amendable to attempting right shoulder aspirate using local lidocaine and US guidance at this time. Patient understands that if CT guidance and or IV moderate sedation were necessary, rescheduling procedure until HCG test results is required. * Terri Garcia RN - 08/30/2024 11:45 AM CDT Diagnosis (BOBBY/CRF): crf Non-Renal Diagnosis: right shoulder pain Isolation Contact Does patient have signs or symptoms of respiratory infection(fever, cough, shortness of breath): no No Known Allergies Code Status: full Orientation Status: x4 On telemetry/Rhythm: no Oxygen: room air Given any medications: see mar Need for pain medications: yes/see mar Blood pressure issues: no On any drips: no Is patient diabetic: yes Any labs to draw: no Any other procedures today: no Any concerns about this patient :no Any medications to be given with dialysis: none Report from: Tammy RN Phone number: [phone] * Noe Rabago MD - 08/30/2024 11:19 AM CDT Images from the original note were not included. [facility] Internal Medicine Progress Note Name: Gay Canales Room/Bed: [facility] : 1990 33 year old Admit Date/Time: 08/26/2024 4:27 PM LOS: 3 PCP: CHERISE MARCELO PA-C Attending Physician: Noe Rabago MD Subjective Interval update: Continues with pain, controlled with multimodal regimen. Denies fevers or chills. Denies other acute concerns. Hospital course: 33-year-old female with history of T2DM with diabetic retinopathy, nephropathy, peripheral neuropathy, ESRD on HD MWF, PVD s/p L AKA, HFpEF, recent MRSA bacteriemia and R shoulder osteomyelitis who presented to OSH for 1 week history of worsening R shoulder pain and swelling. Transferred to [facility] on08/26 for orthopedic evaluation. On arrival, afebrile and VSS. Joint aspiration performed at bedside that revealed cell count 3700, 83% neutrophils, no cultures obtained. Patient was admitted for continued management. Right shoulder XR revealed deformity of right humeral head/neck likely related toerosive changes of septic arthirits or osteomyelitis stable from multiple previous exams. Likely soft tissue gas seen on axillary view concerning for gas-forming infection. MRI thoracic, cervical, and lumbar spine ordered due to complains of back pain, did not reveal acute findings. ID consulted, recommended continuing IV Vanc and obtaining MRI right shoulder which revealed fluid collection containing gas in anterior soft tissue compatible with abscess and appeared to communicate with the glenohumeral joint, IR consulted for aspiration with culture and possible drain placement. Objective Recent Vitals: Temp: [97.5 ??F (36.4 ??C)-98.8 ??F (37.1 ??C)] 98.5 ??F (36.9 ??C) Pulse: [75-80] 77 Resp: [18] 18 BP: (112-141)/(66-84) 130/76 Weight change: Intake/Output Summary (Last 24 hours) at 08/30/2024 1119 Last data filed at 08/30/2024 0944 Gross per 24 hour Intake 680 ml Output 1000 ml Net -320 ml Physical Exam: Gen: Alert, cooperative, in no acute distress HEENT: NC/AT, no nasal drainage, oropharynx clear Neck: Supple with full ROM CV: Regular S1 & S2. Lungs: Clear to auscultation bilaterally Abdomen: BS+, soft, non-tender, non-distended Extremities: TTP R shoulder joint, preserved ROM, incision site c/d/i, L AKA, No edema noted Skin: Warm, dry Neuro: Alert and oriented to person, place, time and situation. No gross focal neurologic deficits noted Psych: Mood and affect appropriate and within normal limits Scheduled Medications: 0.9% NaCl 3 mL Intracatheter q8h acetaminophen 1,000 mg Oral q8h amLODIPine 10 mg Oral QDAY carvedilol 25 mg Oral BID WC furosemide 40 mg Oral TUES, THUR & SAT gabapentin 300 mg Oral MON, WED AND FRI gadoterate meglumine Intravenous Contrast - Once insulin aspart 0-6 Units Subcutaneous TID lidocaine 1 patch Transdermal q24h lisinopril 40 mg Oral QDAY methocarbamol 500 mg Oral q8h polyethylene glycol 3350 17 g Oral QDAY renal vitamin 1 tablet Oral QDAY senna-docusate 1 tablet Oral QDAY sevelamer carbonate 800 mg Oral TID WC vancomycin 750 mg Intravenous MON, WED AND FRI vancomycin (VANCOCIN) IV dose per pharmacy Does not apply DIRECTED PRN Medications: SALINE LOCK, INSERT AND MAINTAIN AND 0.9% NaCl AND 0.9% NaCl dextrose IV for hypoglycemia OR dextrose IV for hypoglycemia OR glucagon glucose (Diabetic Use) gel HYDROmorphone oxyCODONE (immediate release) OR oxyCODONE (immediate release) Continuous Infusions: Laboratory Data Recent Labs Component Name 08/29/24202308/28/24202808/26/242311 WBC 9.6 10.1 11.0* HGB 9.1* 8.9* 10.1* HCT 30.2* 29.5* 33.2* PLTCOUNT 407 406 404 MCV 97.4 98.3* 95.4 Recent Labs Component Name 08/07/24 0547 08/06/24 0402 08/05/24 0431 08/04/24 0355 08/04/24 0254 08/03/24 1107 08/03/24 0538 08/02/24 1753 08/02/24 0804 PT - - - - 14.6 - 14.5 - 13.3 INR - - - - 1.2 - 1.2 - 1.0 PTT 35.0 99.3* 97.3* - 169.8* - 150.1* - 43.2* - = values in this interval not displayed. Recent Labs Component Name 08/29/24202308/28/24202808/26/242311 NA 139 138 140 POTASSIUM 4.4 4.4 5.4* CL 104 102 111* CO2 17* BUN 35* 30* 34* CREATININE 6.51* 5.33* 5.04* Recent Labs Component Name 08/29/24202308/28/24202808/26/24231108/25/24 0950 08/09/24 0945 CALCIUM 7.8* 7.8* 8.7 - 8.6 PHOS 6.2* 5.7* - - 4.9 - = values in this interval not displayed. Recent Labs Component Name 08/29/24202308/28/24202808/26/24231108/25/24 0950 08/09/24 0945 08/07/24 0547 PROT - - 8.2 8.4* - 7.9 ALB 2.2* 2.3* 2.5* 2.6* - 2.1* ALKPHOS - - 215* 216* - 106 AST - - 13 10 - 10 ALT - - 6 8 - <5* TBILI - - 0.2 0.3 - 0.2 - = values in this interval not displayed. Recent Labs Component Name 04/27/23 0729 12/02/22 1955 CKTOTAL 1,624* - TROPONINI - 0.023 Recent Labs Component Name 08/27/24 1222 02/23/24 0737 05/21/23 0450 VANCORNDM 18.3 - - VANCTROUGH - - 15.5 - = values in this interval not displayed. Microbiology Results (Displays last 21 days for this encounter ONLY) Procedure Component Value - Date/Time CULTURE ANAEROBE [[id number]] Lab Status: No result Specimen: Microbiology from Synovial Fluid CULTURE FLUID+GRAM STAIN [[id number]] Lab Status: No result Specimen: Other from Synovial Fluid SARS-COV-2 (COVID-19)+INFLU A+B PCR RAPID [[id number]] (Normal) Collected: 08/25/24 1005 Lab Status: Final result Specimen: Microbiology from Nasopharyngeal Updated: 08/25/24 1055 COVID-19 PCR Not detected Influenza A Rapid RASHAWN Not Detected Influenza B RASHAWN Rapid Not Detected Narrative: Influenza assay performed by Nucleic Acid Amplification. Results do not exclude the possibility of a mixed viral infection. NOTE: Detecting and identifying specific viral nucleic acids from individuals exhibiting signs and symptoms of respiratory infection aids in the diagnosis of respiratory infection, if used in conjunction with other clinical and laboratory findings. The results of this test should not be used as thesole basis for diagnosis, treatment, or patient management decisions. This nucleic acid amplification assay performance was validated by [facility]. This test has been authorized by the Food and Drug administration (FDA)under an Emergency Use Authorization (EUA). This test [...] this EUA assay are available upon request. CULTURE BLOOD [[id number]] (Normal) Collected: 08/25/24 1005 Lab Status: Preliminary result Specimen: Blood Peripheral Updated: 08/27/24 1431 Culture No growth CULTURE BLOOD [[id number]] (Normal) Collected: 08/25/24 0950 Lab Status: Preliminary result Specimen: Blood Peripheral Updated: 08/27/24 1431 Culture No growth Imaging MRI Thoracic Spine Wwo Cont Result Date: 08/27/2024 IMPRESSION: 1. No areas of abnormal contrast enhancement noted throughout the spine. Multilevel mild to moderate facet arthropathy in the lower lumbar spine otherwise no significant degenerative changes noted including cervical and thoracic spine. 2. No abnormal cord signal within the limits of thestudy. 3. Partially visualized prominent lymph nodes in the posterior mediastinum/left upper para-aortic region also seen on prior study. Partially visualized enhancement in the right shoulder with enlarged right axillary lymph nodes could be secondary to known septic arthritis. This study was dictated by executive vice president and chief operating officer Anam Pearson MD and reviewed and edited by the attending. Mery Kim MD have personally reviewed and interpreted this examination/study. > Interpreting Provider: Mery Esqueda MD on 08/27/2024 12:10 PM MRI Cervical Spine Wwo Cont Result Date: 08/27/2024 IMPRESSION: 1. No areas of abnormal contrast enhancement noted throughout the spine. Multilevel mild to moderate facet arthropathy in the lower lumbar spine otherwise no significant degenerative changes noted including cervical and thoracic spine. 2. No abnormal cord signal within the limits of thestudy. 3. Partially visualized prominent lymph nodes in the posterior mediastinum/left upper para-aortic region also seen on prior study. Partially visualized enhancement in the right shoulder with enlarged right axillary lymph nodes could be secondary to known septic arthritis. This study was dictated by executive vice president and chief operating officer Anam Pearson MD and reviewed and edited by the attending. Mery Kim MD have personally reviewed and interpreted this examination/study. > Interpreting Provider: Mery Esqueda MD on 08/27/2024 12:10 PM MRI Lumbar Spine Wwo Contrast Result Date: 08/27/2024 IMPRESSION: 1. No areas of abnormal contrast enhancement noted throughout the spine. Multilevel mild to moderate facet arthropathy in the lower lumbar spine otherwise no significant degenerative changes noted including cervical and thoracic spine. 2. No abnormal cord signal within the limits of thestudy. 3. Partially visualized prominent lymph nodes in the posterior mediastinum/left upper para-aortic region also seen on prior study. Partially visualized enhancement in the right shoulder with enlarged right axillary lymph nodes could be secondary to known septic arthritis. This study was dictated by executive vice president and chief operating officer Anam Pearson MD and reviewed and edited by the attending. I, Mery Esqueda MD have personally reviewed and interpreted this examination/study. > Interpreting Provider: Mery Esqueda MD on 08/27/2024 12:10 PM Relevant labs and imaging data reviewed on Epic. Assessment and Plan Right shoulder pain and swelling, improved History of septic arthritis/ostemyelitis of R shoulder, L shoulder, MRSA bacteremia, multiple soft tissue abscesses Synovial fluid analysis in the ED showing bloody red fluid with 3,700 total nucleated cells 83% neutrophils, 5% lymphocytes, 12% eosinophils. Significant infectious history with prior history of multiple septic arthritis episodes of bilateral shoulders, osteomyelitis of right leg s/p above the kneeamputation, MRSA bacteremia, and multiple soft tissue abscesses of trunk and upper extremities. Right shoulder tapped by ortho in ED, analysis was bland, ortho has low concern for active septic arthritis given these studies and patient's ROM on exam. Saw ID in clinic 08/23/24 with plan to continue vancomycin through 09/10/24. No clearly identified etiology for extensive infectious history. Patientwith DM2 and history of chronic wounds 2/2 PAD but DM well controlled with most recent A1c 6.2 in 05/2024. Immunoglobulin studies ordered in 2021 with mildly reduced IgG to 663 (normal 700-1600). PLAN: - Continue vancomycin (anticipated EOT 09/10/24) - No acute intervention per Orthopedics, no concern for hematoma contributing to shoulder sxs. No acute intervention. Ok to resume Eliquis. - ID consulted, appreciate assistance - Recs continue IV vanc - MRI Rt shoulder wwo contrast reviewed, anterior soft tissue fluid collection with gas concerning for abscess, appears to communicate with glenohumeral joint space, spoke with ID and ortho, IR consulted for aspiration with culture and possible drain placement T2DM with diabetic retinopathy, nephropathy, peripheral neuropathy Right plantar diabetic foot wound, POA Diagnosed aged 18, at one point was on insulin. Did lose a lot of weight and was able to get off ofmedications. Last A1c 7.4% - SSI with meals - accu-checks - hypoglycemia protocol - continue home gabapentin 300 mg MWF - wound consult for R foot wound care ESRD on HD MWF Anemia of chronic disease Plan: - Nephrology consulted for HD - continue home iron supplement - continue home Lasix 40 mg po MWF - continue home renal vitamin, Sevelamer History of provoked DVT 07/30 plan for 3 months AC, started during last admission, however patient has been off since 08/09, unable to fill Rx - Eliquis 5 mg bid, hold for now while awaiting surgery eval for possible drainage Back pain, improved - PT/OT, multimodal pain control PVD R heel ulcer, POA - Wound care consult placed - Regular dressing changes HTN HLD Anemia HFpEF - last TTE 07/30/24 showing normal LV systolic function prior study 05/2024 demonstrated grade II diastolic dysfunction - carvedilol to 25 mg bid, lisinopril to 40 mg daily, and continue home amlodipine 10 mg daily Incidental findings requiring follow up: Diet: DIET RENAL DIETARY NUTRITION SUPPLEMENTS ONCE DVT Prophylaxis: Apixaban 5mg BID Code Status: Full Code Dispo: await MRI R shoulder, pain control. Electronically Signed By: Noe Rabago MD 08/30/2024 11:19 AM The total time spent was 35 minutes performing chart preparation, review of data and visit with thepatient, reviewing medical records including laboratory/imaging data, discussing disposition plan with care coordination team, updating nursing staff regarding changes to care plan, and providing upda karolina to/discussing care plan with patient, orthopedic surgery, infectious disease, interventional radiology . * Rosita Fields RN - 08/30/2024 11:08 AM CDT Care Coordination Initial Assessment Expected Discharge Date: Expected Discharge Disposition: Home Health Services Transportation at Discharge: [employer]ret[employer] Prior Level of Care: Home Prior to Admit Provider: TOÑITO Hammer Comments: 33 year old female with h/o T2DM, ESRD on HD TTS, HTN, HLD, hx of RUE DVT, anemia, PVD, blindness, s/p L AKA, HFpEF, prior hx of infectious arthritis presenting [facility] for 1week history of right shoulder pain. Lives with: Family Members (sister) Physical Limitations: Wheelchair Bound (manual) Requires Assistance With: Meal Preparation Preferred Pharmacy: [facility] [phone] [phone] [phone] READMISSION RISK SCORE is 31 at 11:09 AM 08/30/2024. Met with patient Family Support (name and phone): Extended Emergency Contact Information Primary Emergency Contact: GAYE BEAL Address: [address] [place] Relation: Sister Credit Specialist needed? No Secondary Emergency Contact: Silvia Resendiz Address: [address] [place] Relation: Mother Credit Specialist needed? 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 No Actual Level of Care/Dispostion Details Durable Medical Equipment Planning Equipment at Home: Wheelchair Type of Wheelchair: Standard Type of Bathroom Equipment: Shower Chair List DME pt. requires but does not have.: None Online Marketing Specialist Referral: No Will continue to follow. For any questions or needs please contact: Supervisor [employer]/Social Work Name/Phone number: Rosita Fields RN * Masha Finley RN - 08/30/2024 11:04 AM CDT Images from the original note were not included. WOUND OSTOMY NURSE CONSULT NOTE Gay Canales is an 33 year old femalewho has pt has wet wound orders . This consultation was requested by JIMMIE Falcon. History Social History Substance and Sexual Activity Alcohol Use Not Currently Comment: Occassionally Social History Tobacco Use Smoking Status Former Types: Cigarettes Start date: 2010 Smokeless Tobacco Never Tobacco Comments Quit 4-5 months after starting Past Medical History: Diagnosis Date Essential (primary) hypertension Heart failure (HCC) Type 2 diabetes mellitus without complications (HCC) Past Surgical History: Procedure Laterality Date DEBRIDEMENT Right 07/27/2024 Right; RIGHT SHOULDER INCISION AND DEBRIDEMENT LEG AMPUTATION ABOVE KNEE Left 12/05/2022 Left; AMPUTATION ABOVE LEFT KNEE Leg Amputation, Below Knee Left 12/02/2022 Left; LEFT ANKLE DISARTICULATION LEVEL 2 @ 2220 Medications/Allergies No Known Allergies Medications Prior to Admission Medication Sig Dispense Refill acetaminophen (Tylenol) 500 MG tablet Take 1 (one) tablet by mouth every 4 hours Maximum allowable Acetaminophen amount = 4 Grams (4000 mg) / 24 hours. (Patient not taking: Reported on 08/23/2024) Alcohol Swabs (Alcohol Prep) 70 % USE ONE SWAB TO CLEAN SKIN FOUR TIMES DAILY BEFORE TESTING (Patient not taking: Reported on 08/23/2024) 100 Each PRN amLODIPine (Norvasc) 10 MG tablet Take 1 (one) tablet by mouth once daily 30 tablet 0 apixaban (Eliquis) 5 MG tablet Take 2 (two) tablets by mouth 2 times daily for 4 days, THEN 1 (one)tablet 2 times daily for 90 days. (Patient not taking: Reported on 08/23/2024) 196 tablet 0 bisacodyl (Dulcolax) 10 MG suppository Insert 1 (one) suppository into the rectum once daily as needed for Constipation (Patient not taking: Reported on 08/23/2024) blood glucose (OpswareTouch Verio) test strip USE ONE STRIP TO TEST BLOOD SUGAR FOUR TIMES DAILY (Patient not taking: Reported on 08/23/2024) 100 strip PRN Blood Glucose Monitoring Suppl (OneTouch Verio Reflect) w/Device KIT Use 1 kit 4 times daily USE METER TO CHECK BLOOD GLUCOSE FOUR TIMES DAILY Reasons: CALL [facility] WHEN DELIVERING [id number] (Patient not taking: Reported on 08/27/2024) 1 kit 0 carvedilol (Coreg) 12.5 MG tablet Take 1 (one) tablet by mouth 2 times daily with morning and evening meal 60 tablet 0 FeroSul 325 (65 Fe) MG tablet Take 1 (one) tablet by mouth daily with breakfast furosemide (Lasix) 40 MG tablet Take 1 (one) tablet by mouth every Friday, Friday & Friday 0 gabapentin (Neurontin) 300 MG capsule Take 1 (one) capsule by mouth every Friday, Friday & Friday 30 capsule 0 Gauze Pads & Dressings (Gauze Dressing) 4 X4 PADS Use 1 Pad every 2 days Apply to right shoulder, change dressing every 48 hours, sooner if needed. 24 Each 1 Lancets (ONETOUCH DELICA PLUS 33G EXTRA FINE LANCET) USE ONE LANCET TO PRICK FINGER FOUR TIMES DAILY FOR BLOOD GLUCOSE TESTING (Patient not taking: Reported on 08/23/2024) 100 Each PRN lisinopril (Prinivil; Zestril) 20 MG tablet Take 1 (one) tablet by mouth once daily 30 tablet 0 melatonin 3 MG tablet Take 1 (one) tablet by mouth nightly as needed for Insomnia (Patient not taking: Reported on 08/23/2024) oxyCODONE, immediate release, (Roxicodone) 10 MG tablet Take 1 (one) tablet by mouth every 4 hours as needed for Pain (Patient not taking: Reported on 08/27/2024) 12 tablet 0 renal vitamin (Dialyvite) tablet Take 1 (one) tablet by mouth once daily senna (Senokot) 8.6 MG tablet Take 1 (one) tablet by mouth once daily (Patient not taking: Reportedon 08/23/2024) sevelamer carbonate (Renvela) 800 MG Take 1 (one) tablet by mouth 3 times daily with meals vancomycin 750 mg in 0.9% NaCl IV 0.9 % 250 mL 750 (seven hundred fifty) mg by Intravenous route every Friday, , & Friday for 35 days Data Review: Chemistry: Lab results smartLinks are not currently available CBC: Lab results smartLinks are not currently available Assessment Vitals: 08/30/24 0141 08/30/24 0400 08/30/24 0406 08/30/24 0802 BP: 141/84 120/69 130/76 Pulse: 80 78 77 Resp: 18 18 Temp: 98.8 ??F (37.1 ??C) 98.6 ??F (37 ??C) 98.5 ??F (36.9 ??C) SpO2: 97% 94% 94% Weight: 110.4 kg (243 lb 4.8 oz) Pt familiar to this [facility] facilities, seen one month ago on previous admission. Pt with neuropathic/diabetic foot ulcer to plantar right foot. Green tinged drainage. 4 X 5 X 1. Undermines under the macerated callus on the proximal edges approx 1.4cm. Pain Assessment Pain Location #1 Pain Scale/Observation: Numeric (0-10) Pain Rating Score #1: 9 Sedation Level #1: S-Sleeping, easy to arouse Goal Numeric Pain Scale: 0 Functional Goal: Participate in ADLs;Ability to adequately rest Functional Goal Met?: Yes Pain Location : Shoulder Pain Orientation: Right Pain Quality: Throbbing Aggravating Factors: Movement;Activity Relieved By: Rest;Medications Pain Intervention(s): Medication (see MAR) Non-pharmacological interventions: Reposition;Distraction;Emotional Support Behaviors/Assumed Pain Present : Calm Bhavin Score Bhavin Scale - Adult Sensory Perception: No Impairment Moisture: Occasionally Moist Activity: Chairfast Mobility: Slightly Limited Nutrition: Adequate Friction and Shear: Potential Problem Total Score: 17 Recommendations: Daily Dressing change: VASHE soak for 5 minutes, scrub the wound with vashe soaked 4 X 4. Apply IODOSORB gel 2mm or nickel thickness to the wound bed, apply open 4 X 4 to wound bed and up under the loose callus. Cover with ABD and wrap with kerlix. Change daily. Offload heel pressure. Masha Finley RN * Danita Dutta RN - 08/30/2024 4:13 AM CDT Problem: Pain/Discomfort Goal: Patient exhibits reduced pain/discomfort as evidenced by pain scores Outcome: Progressing Goal: Patient uses pharmacological and non-pharmacological pain management strategies. Outcome: Progressing Goal: Patient verbalizes acceptable level of pain relief and ability to engage in desired activity. Outcome: Progressing Problem: Hemodynamic Status/Cardiac Output Goal: Patient has stable vital signs and fluid balance Outcome: Progressing Problem: Fluid and Electrolyte Imbalance Goal: Fluid and electrolyte balance are achieved/maintained Outcome: Progressing Problem: Infection Goal: Signs and symptoms of infections are decreased or avoided Outcome: Progressing Problem: Tissue injury due to various disease processes Goal: Provide optimal wound healing environment Outcome: Progressing Problem: Tissue Injury Due to External Forces of Pressure, Friction, and Shear Goal: Protect Skin from External Forces Outcome: Progressing * Ashley Falcon RN - 08/29/2024 3:27 PM CDT Problem: Pain/Discomfort Goal: Patient exhibits reduced pain/discomfort as evidenced by pain scores Outcome: Progressing Goal: Patient uses pharmacological and non-pharmacological pain management strategies. Outcome: Progressing Goal: Patient verbalizes acceptable level of pain relief and ability to engage in desired activity. Outcome: Progressing Problem: Hemodynamic Status/Cardiac Output Goal: Patient has stable vital signs and fluid balance Outcome: Progressing Problem: Fluid and Electrolyte Imbalance Goal: Fluid and electrolyte balance are achieved/maintained Outcome: Progressing Problem: Infection Goal: Signs and symptoms of infections are decreased or avoided Outcome: Progressing Problem: Fall Risk Goal: Fall risk and fall related injury risk are minimized (interventions related to the fall risk can be found in the flowsheet documentation) Outcome: Progressing Problem: Skin Integrity Goal: Skin integrity is maintained or improved Outcome: Progressing Problem: Tissue injury due to various disease processes Goal: Provide optimal wound healing environment Outcome: Progressing Problem: Tissue Injury Due to External Forces of Pressure, Friction, and Shear Goal: Protect Skin from External Forces Outcome: Progressing Goal: Maintain and Improve Tissue Tolerance to Pressure Outcome: Progressing * Noe Rabago MD - 08/29/2024 10:06 AM CDT Images from the original note were not included. [facility] Internal Medicine Progress Note Name: Gay Canales Room/Bed: 7718/1 : 1990 33 year old Admit Date/Time: 08/26/2024 4:27 PM LOS: 2 PCP: CHERISE MARCELO PA-C Attending Physician: Noe Rabago MD Subjective Interval update: Pain better controlled. Still without bowel movement, does not feel constipated. Encouraged to transfer to chair as tolerated, continue with bowel regimen. No other acute concerns. Hospital course: 33-year-old female with history of T2DM with diabetic retinopathy, nephropathy, peripheral neuropathy, ESRD on HD MWF, PVD s/p L AKA, HFpEF, recent MRSA bacteriemia and R shoulder osteomyelitis who presented to OSH for 1 week history of worsening R shoulder pain and swelling. Transferred to [facility] on08/26 for orthopedic evaluation. On arrival, afebrile and VSS. Joint aspiration performed at bedside that revealed cell count 3700, 83% neutrophils, no cultures obtained. Patient was admitted for continued management. Right shoulder XR revealed deformity of right humeral head/neck likely related toerosive changes of septic arthirits or osteomyelitis stable from multiple previous exams. Likely soft tissue gas seen on axillary view concerning for gas-forming infection. MRI thoracic, cervical, and lumbar spine ordered due to complains of back pain, did not reveal acute findings. ID consulted, recommended continuing IV Vanc and obtaining MRI right shoulder. Objective Recent Vitals: Temp: [97.5 ??F (36.4 ??C)-98.2 ??F (36.8 ??C)] 98.1 ??F (36.7 ??C) Pulse: [76-77] 77 Resp: [16-18] 18 BP: (108-123)/(61-75) 123/75 Weight change: Intake/Output Summary (Last 24 hours) at 08/29/2024 1006 Last data filed at 08/29/2024 0744 Gross per 24 hour Intake -- Output 600 ml Net -600 ml Physical Exam: Gen: Alert, cooperative, in no acute distress HEENT: NC/AT, no nasal drainage, oropharynx clear Neck: Supple with full ROM CV: Regular S1 & S2. Lungs: Clear to auscultation bilaterally Abdomen: BS+, soft, non-tender, non-distended Extremities: TTP R shoulder joint, preserved ROM, incision site c/d/i, L AKA, No edema noted Skin: Warm, dry Neuro: Alert and oriented to person, place, time and situation. No gross focal neurologic deficits noted Psych: Mood and affect appropriate and within normal limits Scheduled Medications: 0.9% NaCl 3 mL Intracatheter q8h acetaminophen 1,000 mg Oral q8h amLODIPine 10 mg Oral QDAY apixaban 5 mg Oral BID carvedilol 25 mg Oral BID WC furosemide 40 mg Oral TU, THUR & SAT gabapentin 300 mg Oral MON, WED AND FRI insulin aspart 0-6 Units Subcutaneous TID WC lidocaine 1 patch Transdermal q24h lisinopril 40 mg Oral QDAY methocarbamol 500 mg Oral q8h polyethylene glycol 3350 17 g Oral QDAY renal vitamin 1 tablet Oral QDAY senna-docusate 1 tablet Oral QDAY sevelamer carbonate 800 mg Oral TID vancomycin 750 mg Intravenous MON, WED AND FRI vancomycin (VANCOCIN) IV dose per pharmacy Does not apply DIRECTED PRN Medications: SALINE LOCK, INSERT AND MAINTAIN AND 0.9% NaCl AND 0.9% NaCl dextrose IV for hypoglycemia OR dextrose IV for hypoglycemia OR glucagon glucose (Diabetic Use) gel HYDROmorphone oxyCODONE (immediate release) OR oxyCODONE (immediate release) Continuous Infusions: Laboratory Data Recent Labs Component Name 08/28/24202808/26/24231108/25/24 0950 WBC 10.1 11.0* 16.2* HGB 8.9* 10.1* 9.9* HCT 29.5* 33.2* 32.5* PLTCOUNT 406 404 424* MCV 98.3* 95.4 97.6 Recent Labs Component Name 08/07/24 0547 08/06/24 0402 08/05/24 0431 08/04/24 0355 08/04/24 0254 08/03/24 1107 08/03/24 0538 08/02/24 1753 08/02/24 0804 PT - - - - 14.6 - 14.5 - 13.3 INR - - - - 1.2 - 1.2 - 1.0 PTT 35.0 99.3* 97.3* - 169.8* - 150.1* - 43.2* - = values in this interval not displayed. Recent Labs Component Name 08/28/24202808/26/24231108/25/24 0950 NA 138 140 134* POTASSIUM 4.4 5.4* 4.5 CL 102 111* 108* CO2 24 17* 17* BUN 30* 34* 27* CREATININE 5.33* 5.04* 3.61* Recent Labs Component Name 08/28/24202808/26/24231108/25/24 0950 08/09/24 0945 08/07/24 0547 CALCIUM 7.8* 8.7 8.6 8.6 8.9 PHOS 5.7* - - 4.9 5.9* Recent Labs Component Name 08/28/24202808/26/24 2312 08/25/24 0950 08/09/24 0945 08/07/24 0547 PROT - 8.2 8.4* - 7.9 ALB 2.3* 2.5* 2.6* - 2.1* ALKPHOS - 215* 216* - 106 AST - 13 10 - 10 ALT - 6 8 - <5* TBILI - 0.2 0.3 - 0.2 - = values in this interval not displayed. Recent Labs Component Name 04/27/23 0729 12/02/22 195 CKTOTAL 1,624* - TROPONINI - 0.023 Recent Labs Component Name 08/27/24 1222 02/23/24 0737 05/21/23 0450 VANCORNDM 18.3 - - VANCTROUGH - - 15.5 - = values in this interval not displayed. Microbiology Results (Displays last 21 days for this encounter ONLY) Procedure Component Value - Date/Time CULTURE ANAEROBE [[id number]] Lab Status: No result Specimen: Microbiology from Synovial Fluid CULTURE FLUID+GRAM STAIN [[id number]] Lab Status: No result Specimen: Other from Synovial Fluid SARS-COV-2 (COVID-19)+INFLU A+B PCR RAPID [[id number]] (Normal) Collected: 08/25/24 1005 Lab Status: Final result Specimen: Microbiology from Nasopharyngeal Updated: 08/25/24 1055 COVID-19 PCR Not detected Influenza A Rapid RASHAWN Not Detected Influenza B RASHAWN Rapid Not Detected Narrative: Influenza assay performed by Nucleic Acid Amplification. Results do not exclude the possibility of a mixed viral infection. NOTE: Detecting and identifying specific viral nucleic acids from individuals exhibiting signs and symptoms of respiratory infection aids in the diagnosis of respiratory infection, if used in conjunction with other clinical and laboratory findings. The results of this test should not be used as thesole basis for diagnosis, treatment, or patient management decisions. This nucleic acid amplification assay performance was validated by [facility]. This test has been authorized by the Food and Drug administration (FDA)under an Emergency Use Authorization (EUA). This test [...] this EUA assay are available upon request. CULTURE BLOOD [[id number]] (Normal) Collected: 08/25/24 1005 Lab Status: Preliminary result Specimen: Blood Peripheral Updated: 08/27/24 1431 Culture No growth CULTURE BLOOD [[id number]] (Normal) Collected: 08/25/24 0950 Lab Status: Preliminary result Specimen: Blood Peripheral Updated: 08/27/24 1431 Culture No growth Imaging MRI Thoracic Spine Wwo Cont Result Date: 08/27/2024 IMPRESSION: 1. No areas of abnormal contrast enhancement noted throughout the spine. Multilevel mild to moderate facet arthropathy in the lower lumbar spine otherwise no significant degenerative changes noted including cervical and thoracic spine. 2. No abnormal cord signal within the limits of thestudy. 3. Partially visualized prominent lymph nodes in the posterior mediastinum/left upper para-aortic region also seen on prior study. Partially visualized enhancement in the right shoulder with enlarged right axillary lymph nodes could be secondary to known septic arthritis. This study was dictated by executive vice president and chief operating officer Anam Pearson MD and reviewed and edited by the attending. I, Mery Esqueda MD have personally reviewed and interpreted this examination/study. > Interpreting Provider: Mery Esqueda MD on 08/27/2024 12:10 PM MRI Cervical Spine Wwo Cont Result Date: 08/27/2024 IMPRESSION: 1. No areas of abnormal contrast enhancement noted throughout the spine. Multilevel mild to moderate facet arthropathy in the lower lumbar spine otherwise no significant degenerative changes noted including cervical and thoracic spine. 2. No abnormal cord signal within the limits of thestudy. 3. Partially visualized prominent lymph nodes in the posterior mediastinum/left upper para-aortic region also seen on prior study. Partially visualized enhancement in the right shoulder with enlarged right axillary lymph nodes could be secondary to known septic arthritis. This study was dictated by executive vice president and chief operating officer Anam Pearson MD and reviewed and edited by the attending. Mery Kim MD have personally reviewed and interpreted this examination/study. > Interpreting Provider: Mery Esqueda MD on 08/27/2024 12:10 PM MRI Lumbar Spine Wwo Contrast Result Date: 08/27/2024 IMPRESSION: 1. No areas of abnormal contrast enhancement noted throughout the spine. Multilevel mild to moderate facet arthropathy in the lower lumbar spine otherwise no significant degenerative changes noted including cervical and thoracic spine. 2. No abnormal cord signal within the limits of thestudy. 3. Partially visualized prominent lymph nodes in the posterior mediastinum/left upper para-aortic region also seen on prior study. Partially visualized enhancement in the right shoulder with enlarged right axillary lymph nodes could be secondary to known septic arthritis. This study was dictated by executive vice president and chief operating officer Anam Pearson MD and reviewed and edited by the attending. Mery Kim MD have personally reviewed and interpreted this examination/study. > Interpreting Provider: Mery Esqueda MD on 08/27/2024 12:10 PM Relevant labs and imaging data reviewed on Epic. Assessment and Plan Right shoulder pain and swelling, improved History of septic arthritis/ostemyelitis of R shoulder, L shoulder, MRSA bacteremia, multiple soft tissue abscesses Synovial fluid analysis in the ED showing bloody red fluid with 3,700 total nucleated cells 83% neutrophils, 5% lymphocytes, 12% eosinophils. Significant infectious history with prior history of multiple septic arthritis episodes of bilateral shoulders, osteomyelitis of right leg s/p above the kneeamputation, MRSA bacteremia, and multiple soft tissue abscesses of trunk and upper extremities. Right shoulder tapped by ortho in ED, analysis was bland, ortho has low concern for active septic arthritis given these studies and patient's ROM on exam. Saw ID in clinic 08/23/24 with plan to continue vancomycin through 09/10/24. No clearly identified etiology for extensive infectious history. Patientwith DM2 and history of chronic wounds 2/2 PAD but DM well controlled with most recent A1c 6.2 in 05/2024. Immunoglobulin studies ordered in 2021 with mildly reduced IgG to 663 (normal 700-1600). PLAN: - Continue vancomycin (anticipated EOT 09/10/24) - No acute intervention per Orthopedics, no concern for hematoma contributing to shoulder sxs. No acute intervention. Ok to resume Eliquis. - ID consulted, appreciate assistance - Recs continue IV vanc - MRI Rt shoulder wwo contrast, pending T2DM with diabetic retinopathy, nephropathy, peripheral neuropathy Diagnosed aged 18, at one point was on insulin. Did lose a lot of weight and was able to get off ofmedications. Last A1c 7.4% - SSI with meals - accu-checks - hypoglycemia protocol - continue home gabapentin 300 mg MWF ESRD on HD MWF Anemia of chronic disease Plan: - Nephrology consulted for HD - continue home iron supplement - continue home Lasix 40 mg po MWF - continue home renal vitamin, Sevelamer History of provoked DVT 07/30 plan for 3 months AC, started during last admission, however patient has been off since 08/09, unable to fill Rx - Eliquis 5 mg bid, d/w Ortho, no concerns from their end as noted above Back pain, improved - PT/OT, multimodal pain control PVD R heel ulcer, POA - Wound care consult placed - Regular dressing changes HTN HLD Anemia HFpEF - last TTE 07/30/24 showing normal LV systolic function prior study 05/2024 demonstrated grade II diastolic dysfunction - carvedilol to 25 mg bid, lisinopril to 40 mg daily, and continue home amlodipine 10 mg daily Incidental findings requiring follow up: Diet: DIET RENAL DIETARY NUTRITION SUPPLEMENTS ONCE DVT Prophylaxis: Apixaban 5mg BID Code Status: Full Code Dispo: await MRI R shoulder, pain control. Electronically Signed By: Noe Rabago MD 08/29/2024 10:06 AM The total time spent was 30 minutes performing chart preparation, review of data and visit with thepatient, reviewing medical records including laboratory/imaging data, discussing disposition plan with care coordination team, updating nursing staff regarding changes to care plan, and providing upda karolina to/discussing care plan with patient . * Octavio Cuellar MD - 08/29/2024 7:11 AM CDT Patient remains stable, stable hemodynamics, status post hemodialysis on 08/27, plan for hemodialysis tomorrow 08/30. No available labs from today but yesterday potassium was 4.4. Please do not hesitate to call renal flow and call for any questions or concerns. * Larry Cobian RN - 08/29/2024 12:54 AM CDT Problem: Fall Risk Goal: Fall risk and fall related injury risk are minimized (interventions related to the fall risk can be found in the flowsheet documentation) Outcome: Progressing * Octavio Cuellar MD - 08/28/2024 9:27 PM CDT S/P HD 08/27 No new complaints Rt shoulder pain is better. * Bhakti Quintana OT - 08/28/2024 3:[address] [facility] Department of Physical Medicine & Rehabilitation Progress Note Patient: Gay Canales Med Record Number: [id number] Date of : 1990 Age: [age] year old Per PT patient is at baseline with mobility and ADL tasks. No skilled OT indicated at this time. Re-order OT if any change in status occurs. * Ashley Falcon RN - 08/28/2024 3:17 PM CDT Problem: Pain/Discomfort Goal: Patient exhibits reduced pain/discomfort as evidenced by pain scores Outcome: Progressing Goal: Patient uses pharmacological and non-pharmacological pain management strategies. Outcome: Progressing Goal: Patient verbalizes acceptable level of pain relief and ability to engage in desired activity. Outcome: Progressing Problem: Hemodynamic Status/Cardiac Output Goal: Patient has stable vital signs and fluid balance Outcome: Progressing Problem: Fluid and Electrolyte Imbalance Goal: Fluid and electrolyte balance are achieved/maintained Outcome: Progressing Problem: Infection Goal: Signs and symptoms of infections are decreased or avoided Outcome: Progressing Problem: Fall Risk Goal: Fall risk and fall related injury risk are minimized (interventions related to the fall risk can be found in the flowsheet documentation) Outcome: Progressing Problem: Skin Integrity Goal: Skin integrity is maintained or improved Outcome: Progressing Problem: Tissue injury due to various disease processes Goal: Provide optimal wound healing environment Outcome: Progressing Problem: Tissue Injury Due to External Forces of Pressure, Friction, and Shear Goal: Protect Skin from External Forces Outcome: Progressing Goal: Maintain and Improve Tissue Tolerance to Pressure Outcome: Progressing * Nohemi Hernandez, PT - 08/28/2024 3:11 PM CDT [facility] Physical Medicine and Rehabilitation Physical Therapy Initial Evaluation Note Patient: Gay Canales Med Record Number: [id number] Date of : 1990 Age: [age] year old PPE worn by staff: gown - disposable;gloves PPE worn by patient: gown - patient, clean;socks - clean Recommendations: Discharge PT Discharge Recommendations: Patient at baseline per therapy evaluation and has no further skilledtherapy needs while in hospital In addition to the 1:1 evaluation of the patient, additional eval time was spent completing the chart review prior to the assessment, completing the multidisciplinary plan of care and education plan post evaluation and communicating results of the eval to other treatment team members. Patient currently using wheelchair and has equipment at home. No equipment needs if d/c home. Nurse and Occupational Therapist contacted regarding patient status and/or discharge plan. Physician Orders: Evaluation and Treat PRECAUTIONS: Weight Bearing Status: (WBAT RUE) Activity Level: Activity as Tolerated DIAGNOSIS: Patient Active Problem List: Type 2 diabetes mellitus with diabetic polyneuropathy (HCC) Intentional overdose of drug in tablet form (HCC) Severe recurrent major 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 psychotic features ([facility]) PTSD (post-traumatic stress disorder) CHF (congestive heart failure) (HCC) Left foot infection Hypoxia Essential hypertension Swelling of left foot MRSA bacteremia S/P AKA (above knee amputation) unilateral, left ([facility]) 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 ([facility]) Anemia Acute on chronic congestive heart failure, unspecified heart failure type ([facility]) Swelling of right upper extremity Thrombophlebitis 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 ([facility]) ESRD (end stage renal disease) ([facility]) 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, with long-term current use of insulin ([facility]) Insomnia Abscess of left shoulder Leukocytosis Hypoalbuminemia Osteomyelitis of left shoulder, unspecified type ([facility]) Septic arthritis of shoulder, right ([facility]) Pneumonia of both lungs due to infectious organism, unspecified part of lung Acute pain of right shoulder Sepsis due to methicillin resistant Staphylococcus aureus (MRSA) ([facility]) Dyslipidemia Obesity, Class II, BMI 35-39.9 Hyponatremia Hyperkalemia Hyperphosphatemia Hypocalcemia Chronic ulcer of right heel ([facility]) Osteomyelitis of right foot ([facility]) ESR raised Type 2 diabetes mellitus with diabetic polyneuropathy, without long-term current use of insulin ([facility]) Chronic bilateral back pain, unspecified back location Chronic osteomyelitis of right shoulder region ([facility]) Past Medical History: Diagnosis Date Essential (primary) hypertension Heart failure ([facility]) Type 2 diabetes mellitus without complications ([facility]) SUBJECTIVE: Subjective: I can try, patient consents to skilled PT evaluation at this time PATIENT GOALS: Patient's Primary Concern: None stated Home Situation: Type of Residence: Apartment Living arrangement: Family Members (sister) Steps to Enter: 4 Ramp: Yes Home Structure: Two Story (will be able to use portable ramp to get to bedroom) Primary Bedroom: Second Floor Primary Bathroom: (one on each floor) Bathroom : Tub/Shower Combo Equipment at Home: Bathroom Equipment;Wheelchair Prior Level of Functioning: Prior Level of Function Mobility: Wheelchair Bound;Transfers Only Fallen Within 6 Mos: No Have Help at Home?: Yes, there is help at home now Who assists you at home?: Friends/Family How often is assistance provided?: as needed Level of Help Sufficient?: Yes Oxygen at Home: No Activity at Home: W/C Bound Vision: Significant impairment in the left eye;Significant impairment in the right eye Hearing Exceptions: No impairment Who manages medications?: sister Pain Assessment: Pain Location #1 Pain Scale/Observation: Numeric (0-10) Pain Rating Score #1: 6 Pain Location : Shoulder Pain Orientation: Right Pain Intervention(s): Non-pharmacological Non-pharmacological interventions: Reposition;Distraction;Emotional Support OBJECTIVE: At start of therapy session, patient found on edge of bed and with no alarm. General Appearance: Patient is a 33 year old female, on edge of bed, no apparent distress LDAs: Floor: IVs: Peripheral line and hemodialysis tunneled catheter Edema: no edema noted Vitals: (*Assess the 3 levels of oxygen saturations both for room air and 02 unless rest on room air is 88% or less). Rest BP: 114/68 (82) HR: 79 Sp02 Sp02 100% Room Air Observations: Patient with no s/s of distress with mobility Mental Status/Cognition: Level of Consciousness-Adult: Alert Orientation Level: Oriented X4 Cognition: Follows Commands-Consistent;Attention/concentration-normal for age;Processing-Appropriate;Judgement-appropriate;Safety awareness-appropriate Following Commands: Follows all commands and directions without difficulty ROM: RLE: AROM WFL LLE: Not tested, L AKA Strength: RLE:WNL LLE: Not tested, L AKA Tone: RLE: no abnormal tone noted LLE: not tested Coordination: RLE: WNL LLE: not tested Sensation: RLE: no complaints of numbness or tingling LLE: no complaints of numbness or tingling Mobility: A gait belt and non-slip socks were used for all out of bed activity this date. Bed Mobility: Supine to Sit: Activity Does Not Occur (patient to EOB at beginning of session; pt and RN report she was able to complete transfer independently) Transfers: Sit to Stand: Stand By Assist Stand to Sit: Stand By Assist Bed to Chair: Stand By Assist (to the L; requires min verbal cues due to low vision) Type of Transfer: Stand Pivot Transfer Transfer Device: Gait belt Gait: Weight Bearing Status: (WBAT RUE) Distance Ambulated (ft): 0 FEET (pivots only, does not ambulate at baseline) Balance: Balance Scales/Tests Used: Sitting: Static/Dynamic;Standing: Static/Dynamic Sitting - Static: Good Sitting - Dynamic: Good Standing - Static: Good - Standing - Dynamic: Fair + ACTIVITY TOLERANCE: Patient's activity tolerance: good TREATMENT/INTERVENTIONS: evaluation AM-PAC 6 Clicks Mobility Raw Score:: 16 EDUCATION: While performing PT, Patient was instructed in:functional mobility training, safety awareness/fall precautions , discharge planning, use of call light Presented to patient who demonstrates Good understanding of instructions given. INFORMED CONSENT TO TREATMENT: Plan of care including recommended therapy, goals and frequency, discussed with patient who understands and agrees to proceed. ASSESSMENT: Patient demonstrates baseline functioning with mobility. No continued Physical Therapy indicated atthis time Correction Goal(s): Patient to be baseline with functional mobility and self-care and should discharge to prior level of care. Equipment Issued: gait belt Plan: Discontinue IP PT If patient is discharged from the facility, this note serves as a discharge summary if further physical therapy visits did not occur. Refer to filed flowsheet for further details. Following therapy session, patient left in patient bedside chair , with waffle seat cushion in place, with chair alarm on and positioned under patient's buttocks , with call light within reach, with RNAshley aware. Nohemi Dawkins PT, DPT 08/28/2024 4:26 PM * Noe Rabago MD - 08/28/2024 10:27 AM CDT Images from the original note were not included. [facility] Internal Medicine Progress Note Name: Gay Canales Room[facility]Bed: [facility] : 1990 33 year old Admit Date/Time: 08/26/2024 4:27 PM LOS: 1 PCP: CHERISE MARCELO PA-C Attending Physician: Noe Rabago MD Subjective Interval update: No acute events overnight. Reports feeling well overall. Continues with right shoulder pain that isnot completely controlled. Pain regimen was reviewed with patient, multiple medications were added in his scheduled manner to provide improved baseline pain control and to reduce dependence on IV analgesia. Patient agreeable with plan. Reports no bowel movement since Friday. Denies nausea or vomiting. Able to tolerate p.o. intake. Denies fevers or chills. Hospital course: 33-year-old female with history of T2DM with diabetic retinopathy, nephropathy, peripheral neuropathy, ESRD on HD MWF, PVD s/p L AKA, HFpEF, recent MRSA bacteriemia and R shoulder osteomyelitis who presented to OSH for 1 week history of worsening R shoulder pain and swelling. Transferred to [facility] on08/26 for orthopedic evaluation. On arrival, afebrile and VSS. Joint aspiration performed at bedside that revealed cell count 3700, 83% neutrophils, no cultures obtained. Patient was admitted for continued management. Right shoulder XR revealed deformity of right humeral head/neck likely related toerosive changes of septic arthirits or osteomyelitis stable from multiple previous exams. Likely soft tissue gas seen on axillary view concerning for gas-forming infection. MRI thoracic, cervical, and lumbar spine ordered due to complains of back pain, did not reveal acute findings. ID consulted, recommended continuing IV Vanc and obtaining MRI right shoulder. Objective Recent Vitals: Temp: [98.1 ??F (36.7 ??C)-98.8 ??F (37.1 ??C)] 98.8 ??F (37.1 ??C) Pulse: [79-88] 81 Resp: [16-18] 18 BP: (120-163)/(70-98) 133/80 Weight change: Intake/Output Summary (Last 24 hours) at 08/28/2024 1028 Last data filed at 08/28/2024 0800 Gross per 24 hour Intake 480 ml Output 1512 ml Net -1032 ml Physical Exam: Gen: Alert, cooperative, in no acute distress HEENT: NC/AT, no nasal drainage, oropharynx clear Neck: Supple with full ROM CV: Regular S1 & S2. Lungs: Clear to auscultation bilaterally Abdomen: BS+, soft, non-tender, non-distended Extremities: TTP R shoulder joint, preserved ROM, incision site c/d/i, L AKA, No edema noted Skin: Warm, dry Neuro: Alert and oriented to person, place, time and situation. No gross focal neurologic deficits noted Psych: Mood and affect appropriate and within normal limits Scheduled Medications: 0.9% NaCl 3 mL Intracatheter q8h acetaminophen 1,000 mg Oral q8h amLODIPine 10 mg Oral QDAY apixaban 5 mg Oral BID carvedilol 25 mg Oral BID WC furosemide 40 mg Oral TU, THUR & SAT gabapentin 300 mg Oral MON, WED AND FRI gadobutrol Intravenous Contrast - Once lidocaine 1 patch Transdermal q24h lisinopril 40 mg Oral QDAY methocarbamol 500 mg Oral q8h polyethylene glycol 3350 17 g Oral QDAY renal vitamin 1 tablet Oral QDAY senna-docusate 1 tablet Oral QDAY sevelamer carbonate 800 mg Oral TID vancomycin 750 mg Intravenous FRI, FRI AND FRI vancomycin (VANCOCIN) IV dose per pharmacy Does not apply DIRECTED PRN Medications: SALINE LOCK, INSERT AND MAINTAIN AND 0.9% NaCl AND 0.9% NaCl HYDROmorphone oxyCODONE (immediate release) OR oxyCODONE (immediate release) Continuous Infusions: Laboratory Data Recent Labs Component Name 08/26/24231108/25/24 0950 08/23/24 1522 WBC 11.0* 16.2* 12.5* HGB 10.1* 9.9* 10.1* HCT 33.2* 32.5* 33.3* PLTCOUNT 404 424* 451* MCV 95.4 97.6 95.7 Recent Labs Component Name 08/07/24 0547 08/06/24 0402 08/05/24 0431 08/04/24 0355 08/04/24 0254 08/03/24 1107 08/03/24 0538 08/02/24 1753 08/02/24 0804 PT - - - - 14.6 - 14.5 - 13.3 INR - - - - 1.2 - 1.2 - 1.0 PTT 35.0 99.3* 97.3* - 169.8* - 150.1* - 43.2* - = values in this interval not displayed. Recent Labs Component Name 08/26/24231108/25/2450 08/09/24 0945 NA 140 134* 139 POTASSIUM 5.4* 4.5 4.2 CL 111* 108* 100 CO2 17* 17* 24 BUN 34* 27* 30* CREATININE 5.04* 3.61* 6.80* Recent Labs Component Name 08/26/24231108/25/24 0950 08/09/24 0945 08/07/24 0547 08/06/24 0402 CALCIUM 8.7 8.6 8.6 8.9 8.7 PHOS - - 4.9 5.9* 4.7 Recent Labs Component Name 08/26/24231108/25/24 0950 08/09/24 0945 08/07/24 0547 PROT 8.2 8.4* - 7.9 ALB 2.5* 2.6* 2.1* 2.1* ALKPHOS 215* 216* - 106 AST 13 10 - 10 ALT 6 8 - <5* TBILI 0.2 0.3 - 0.2 Recent Labs Component Name 04/27/23 0729 12/02/22 1955 CKTOTAL 1,624* - TROPONINI - 0.023 Recent Labs Component Name 08/27/24 1222 02/23/24 0737 05/21/23 0450 VANCORNDM 18.3 - - VANCTROUGH - - 15.5 - = values in this interval not displayed. Microbiology Results (Displays last 21 days for this encounter ONLY) Procedure Component Value - Date/Time CULTURE ANAEROBE [[id number]] Lab Status: No result Specimen: Microbiology from Synovial Fluid CULTURE FLUID+GRAM STAIN [[id number]] Lab Status: No result Specimen: Other from Synovial Fluid SARS-COV-2 (COVID-19)+INFLU A+B PCR RAPID [[id number]] (Normal) Collected: 08/25/24 1005 Lab Status: Final result Specimen: Microbiology from Nasopharyngeal Updated: 08/25/24 1055 COVID-19 PCR Not detected Influenza A Rapid RASHAWN Not Detected Influenza B RASHAWN Rapid Not Detected Narrative: Influenza assay performed by Nucleic Acid Amplification. Results do not exclude the possibility of a mixed viral infection. NOTE: Detecting and identifying specific viral nucleic acids from individuals exhibiting signs and symptoms of respiratory infection aids in the diagnosis of respiratory infection, if used in conjunction with other clinical and laboratory findings. The results of this test should not be used as thesole basis for diagnosis, treatment, or patient management decisions. This nucleic acid amplification assay performance was validated by [facility]. This test has been authorized by the Food and Drug administration (FDA)under an Emergency Use Authorization (EUA). This test [...] this EUA assay are available upon request. CULTURE BLOOD [[id number]] (Normal) Collected: 08/25/24 1005 Lab Status: Preliminary result Specimen: Blood Peripheral Updated: 08/27/24 1431 Culture No growth CULTURE BLOOD [[id number]] (Normal) Collected: 08/25/24 0950 Lab Status: Preliminary result Specimen: Blood Peripheral Updated: 08/27/24 1431 Culture No growth Imaging MRI Thoracic Spine Wwo Cont Result Date: 08/27/2024 IMPRESSION: 1. No areas of abnormal contrast enhancement noted throughout the spine. Multilevel mild to moderate facet arthropathy in the lower lumbar spine otherwise no significant degenerative changes noted including cervical and thoracic spine. 2. No abnormal cord signal within the limits of thestudy. 3. Partially visualized prominent lymph nodes in the posterior mediastinum/left upper para-aortic region also seen on prior study. Partially visualized enhancement in the right shoulder with enlarged right axillary lymph nodes could be secondary to known septic arthritis. This study was dictated by executive vice president and chief operating officer Anam Pearson MD and reviewed and edited by the attending. Mery Kim MD have personally reviewed and interpreted this examination/study. > Interpreting Provider: Mery Esqueda MD on 08/27/2024 12:10 PM MRI Cervical Spine Wwo Cont Result Date: 08/27/2024 IMPRESSION: 1. No areas of abnormal contrast enhancement noted throughout the spine. Multilevel mild to moderate facet arthropathy in the lower lumbar spine otherwise no significant degenerative changes noted including cervical and thoracic spine. 2. No abnormal cord signal within the limits of thestudy. 3. Partially visualized prominent lymph nodes in the posterior mediastinum/left upper para-aortic region also seen on prior study. Partially visualized enhancement in the right shoulder with enlarged right axillary lymph nodes could be secondary to known septic arthritis. This study was dictated by executive vice president and chief operating officer Anam Pearson MD and reviewed and edited by the attending. Mery Kim MD have personally reviewed and interpreted this examination/study. > Interpreting Provider: Mery Esqueda MD on 08/27/2024 12:10 PM MRI Lumbar Spine Wwo Contrast Result Date: 08/27/2024 IMPRESSION: 1. No areas of abnormal contrast enhancement noted throughout the spine. Multilevel mild to moderate facet arthropathy in the lower lumbar spine otherwise no significant degenerative changes noted including cervical and thoracic spine. 2. No abnormal cord signal within the limits of thestudy. 3. Partially visualized prominent lymph nodes in the posterior mediastinum/left upper para-aortic region also seen on prior study. Partially visualized enhancement in the right shoulder with enlarged right axillary lymph nodes could be secondary to known septic arthritis. This study was dictated by executive vice president and chief operating officer Anam Pearson MD and reviewed and edited by the attending. I, Mery Esqueda MD have personally reviewed and interpreted this examination/study. > Interpreting Provider: Mery Esqueda MD on 08/27/2024 12:10 PM Relevant labs and imaging data reviewed on Epic. Assessment and Plan Right shoulder pain and swelling, improved History of septic arthritis/ostemyelitis of R shoulder, L shoulder, MRSA bacteremia, multiple soft tissue abscesses Synovial fluid analysis in the ED showing bloody red fluid with 3,700 total nucleated cells 83% neutrophils, 5% lymphocytes, 12% eosinophils. Significant infectious history with prior history of multiple septic arthritis episodes of bilateral shoulders, osteomyelitis of right leg s/p above the kneeamputation, MRSA bacteremia, and multiple soft tissue abscesses of trunk and upper extremities. Right shoulder tapped by ortho in ED, analysis was bland, ortho has low concern for active septic arthritis given these studies and patient's ROM on exam. Saw ID in clinic 08/23/24 with plan to continue vancomycin through 09/10/24. No clearly identified etiology for extensive infectious history. Patientwith DM2 and history of chronic wounds 2/2 PAD but DM well controlled with most recent A1c 6.2 in 05/2024. Immunoglobulin studies ordered in 2021 with mildly reduced IgG to 663 (normal 700-1600). PLAN: - Continue vancomycin (anticipated EOT 09/10/24) - No acute intervention per Orthopedics, no concern for hematoma contributing to shoulder sxs. No acute intervention. Ok to resume Eliquis. - ID consulted, appreciate assistance - Recs continue IV vanc, obtain MRI Rt shoulder wwo contrast, pending T2DM with diabetic retinopathy, nephropathy, peripheral neuropathy Diagnosed aged 18, at one point was on insulin. Did lose a lot of weight and was able to get off ofmedications. Last A1c 05/25/24: 6.2% - accu-checks today to monitor glucose trend - SSI with meals - hypoglycemia protocol - check A1c ESRD on HD MWF Diabetic nephropathy Plan: - Nephrology consulted for HD - continue home iron supplement - continue home Lasix 40 mg po MWF - continue home gabapentin 300 mg MWF - continue home renal vitamin, Sevelamer History of provoked DVT 07/30 - plan for 3 months AC, started during last admission, however patient has been off since 08/09, unable to fill Rx - Resuming Eliquis 5 mg bid, d/w Ortho, no concerns from their end as noted above Back pain, improved - PT/OT, multimodal pain control PVD R heel ulcer, POA - Wound care consult placed - Regular dressing changes HTN HLD Anemia HFpEF - last TTE 07/30/24 showing normal LV systolic function prior study 05/2024 demonstrated grade II diastolic dysfunction - increase home carvedilol to 25 mg bid, lisinopril to 40 mg daily, and continue home amlodipine 10mg daily Incidental findings requiring follow up: Diet: DIET RENAL DIETARY NUTRITION SUPPLEMENTS ONCE DVT Prophylaxis: Apixaban 5mg BID Code Status: Full Code Dispo: await MRI R shoulder, pain control. Electronically Signed By: Noe Rabago MD 08/28/2024 10:28 AM The total time spent was 40 minutes performing chart preparation, review of data and visit with thepatient, reviewing medical records including laboratory/imaging data, discussing disposition plan with care coordination team, updating nursing staff regarding changes to care plan, and providing upda karolina to/discussing care plan with patient . * Larry Cobian RN - 08/27/2024 11:23 PM CDT Problem: Fall Risk Goal: Fall risk and fall related injury risk are minimized (interventions related to the fall risk can be found in the flowsheet documentation) Outcome: Progressing * Chano Heard MD - 08/27/2024 9:15 PM CDT Hospitalist Acceptance Note (Brooke) Pt arrived to [facility] from [facility] Vitals stable Gen: NAD/comfortable MAR reviewed Recent labs reviewed Current MAR and Orders reviewed (relevant changes made to adjust for this floor) No acute issues to be addressed at this time. Will c/w current management plan (See transferring team's today's PN and transfer checklist for Hospital course and detailed Assessment/plan) Will address any other acute issues as needed overnight Medicine team to do detailed round in am * Keisha Garner RN - 08/27/2024 5:49 PM CDT 08/27/24 1652 Post Hemodialysis Patient Response to Treatment good/ hd tx complete Post Dialysis Patient Status Returned to room;Treatment Completed Ultrafiltration Amount (ml) 1512 Dialyzer Clearance Moderately streaked Amount of blood processed (Liters) 68.7 Post Hemodialysis Comment pt hd tx complete.pt awake and alert . pt tolerated 1.5 L removal well . pt denies pain at this time. uneventful hd tx TX Charge entered in Charge Capture Yes * Ashley Falcon RN - 08/27/2024 4:16 PM CDT Received patient from ED, alert and orientated x4, orientated to room and unit. Patient is blind but denies need for special call light. Pressure injury noted to Rt heel, photograph taken and placed in chart. Orders reviewed. Problem: Pain/Discomfort Goal: Patient exhibits reduced pain/discomfort as evidenced by pain scores Outcome: Progressing Goal: Patient uses pharmacological and non-pharmacological pain management strategies. Outcome: Progressing Goal: Patient verbalizes acceptable level of pain relief and ability to engage in desired activity. Outcome: Progressing Problem: Hemodynamic Status/Cardiac Output Goal: Patient has stable vital signs and fluid balance Outcome: Progressing Problem: Fluid and Electrolyte Imbalance Goal: Fluid and electrolyte balance are achieved/maintained Outcome: Progressing Problem: Infection Goal: Signs and symptoms of infections are decreased or avoided Outcome: Progressing Problem: Fall Risk Goal: Fall risk and fall related injury risk are minimized (interventions related to the fall risk can be found in the flowsheet documentation) Outcome: Progressing Problem: Skin Integrity Goal: Skin integrity is maintained or improved Outcome: Progressing Problem: Tissue injury due to various disease processes Goal: Provide optimal wound healing environment Outcome: Progressing Problem: Tissue Injury Due to External Forces of Pressure, Friction, and Shear Goal: Protect Skin from External Forces Outcome: Progressing Goal: Maintain and Improve Tissue Tolerance to Pressure Outcome: Progressing * Keisha Garner RN - 08/27/2024 2:42 PM CDT Pt hd tx int. Pt tolerates hd tx well Int. Uf goal 2-2.5L pt states that she has passed out after pulling 2L New goal set 1.5 L ( reached 1.5 L ) Problem: Infection Goal: Signs and symptoms of infections are decreased or avoided Outcome: Progressing * Trinidad Holloway, PharmD - 08/27/2024 2:18 PM CDT ACTIVE CONSULTS TO PHARMACY/DISEASE STATE MONITORING Pharmacy Consult: Vancomycin Note: The latest IDSA/SIDP guideline for vancomycin therapeutic monitoring recommend monitoring thearea under the serum concentration vs. time curve for 0- 24 hours (AUC24) as the preferred therapeutic target for suspected/confirmed MRSA infections. The goal AUC 400-600 mg/L/hr has been shown to decrease overall drug exposure minimizing the risk of acute kidney injury without compromising clinical outcomes. Trough guided therapy and serial random level assessment is still appropriate in some patient populations. REF: https://www.idsociety.org/practice-guideline/vancomycin/ ASSESSMENT/PLAN Indication: documented Bacteremia with Goal Level: pre HD level 15-20 mcg/ml Assessment Microbiology: Recent Labs Component Name 02/22/24 6609 MRSADPCR Detected* History/current positive cultures for MRSA: Yes Other pertinent micro: Blood 07/31 MRSA Renal: Recent Labs Component Name 08/26/24 2312 08/25/24 0950 08/09/24 0945 08/07/24 0547 CREATININE 5.04* 3.61* 6.80* 6.99* BUN 34* 27* 30* 33* Considered stable at this time as patient is on intermittent hemodialysis (iHD) MWF with next session today. Historical dosing data that influences current dosing decisions: Yes - patient's usual regimen prior to admission is 750 mg MWF after dialysis. Upon transfer to [facility] vancomycin dose was infusing on 08/26 at 0916, per notes. Random level today is 18.3 -- with expected removal during dialysis and consideration that prior dose was likely given a day late, it is appropriate to resume the previous regimen. Plan Regimen: Maintenance dose: 750 mg, Dosing interval: dosing post HD sessions MWF Monitoring: Will order a vancomycin random level on 09/01 at 0400 and adjust regimen if indicated. Continue to monitor patient???s renal function and cultures as needed. Trinidad Holloway, PharmD 08/27/2024 2:18 PM [facility] Vancomycin Guideline SUBJECTIVE/OBJECTIVE Gay Canales is a 33 year old female Wt 107 kg (236 lb) Body mass index is 36.96 kg/m??. Dialysis Orders (72h ago, onward) Start Ordered 08/27/24 0900 HEMODIALYSIS INPATIENT ONCE Question Answer Comment K+ 2.0 Meq Ca++ 2.5 Meq Bicarb 37 Na+ 140 meq Na+ Modeling None Dialyzer Elisio 15H Dialysate Temperature (C) 37 DFR 700 mL/min Duration of Treatment Other (specify) 3,5 hours Dry weight (kg) or fluid removal (L) 2 to 2.5 Dialysis Tubing 8 mm Dialysis Access Site Central Line Early Start: Yes BFR-As tolerated to a max of: 350 08/27/24 0849 Radiocontrast within 72 hours The 3 most recent administrations since 08/24/2024 are shown below each listed medication. Other Order Route Dose Action Date gadobutrol (Gadavist) injection Intravenous 10 mL $ Given - Contrast 08/27/2024 Vancomycin Administrations from [facility] (last 72 hours) None Recent Labs Component Name 08/27/24 1222 08/05/24 0431 07/31/24 0553 02/23/24 0737 05/21/23 0450 05/20/23 0918 05/18/23 0617 05/09/23 0357 05/08/23 0841 04/29/23 0338 04/28/23 0319 04/27/232018 VANCORNDM 18.3 14.6 17.1 - - - - - - - - - VANCTROUGH - - - - 15.5 - - 19.5 - - 34.6* - VANCOPEAK - - - - - 20.1* - - 26.1 - - 46.6* - = values in this interval not displayed. * Khloe Lowery - 08/27/2024 10:28 AM CDT I am aware of this patient's admission, I will be following this dialysis patient for any needs while an inpatient, and keeping their clinic informed of their progress while admitted. Records were forwarded to the clinic for their review. Spoke with Mary at [facility] and she was able to confirm patient 's OP HD schedule Outpatient Clinic [facility] Days: MWF Time: 6:20am Doctor: Dr Mak 08/27/2024 1:49 PM Meet with patient in dialysis suite. Patient voiced no concerns with clinic. Documented acknowledgement of choice: Yes, verbal consent given per patient request Khloe Lowery Kidney Navigator/ [facility] Ascom: [phone] Office: [phone] * Harpreet Katz DO - 08/27/2024 9:58 AM CDT [facility] HOSPITALIST PROGRESS NOTE Patient: Gay Canales Sex: female Age: [age] year old Date of : 1990 Date of Admission: 08/26/2024 Date: 08/27/2024 LOS: 0 SUBJECTIVE Interval History: NAEO. Spoke with Ortho - no acute intervention. Will consult ID for direction on abx, although suspect likely continue vancomycin as previously prescribed through 09/10/24. Patient endorses inadequatepain control, will adjust regimen. Hospital Course: 33 year old female with h/o T2DM, ESRD on HD TTS, HTN, HLD, hx of RUE DVT, anemia, PVD, blindness, s/p L AKA, HFpEF, prior hx of infectious arthritis presenting from [facility] for 1 week history of right shoulder pain. She has had multiple admissions for similar CC. [facility] on 08/[facility]/24. She had follow up with U ID on 08/23/24, decision made at that time to continue IV vanc through 09/10/24. Patient reports she has had worsening Right shoulder pain for a few days (was not having this pain at ID visit). In the ED, labs significant for hyperkalemia to 5.4, Cr 5.04, Alk phos 215, normocytic anemia to Hgb 10.1. Orthopedic surgery drained her joint and fluid aspirate analysis with bloody fluid and 3,700total nucleated cells with 83% neutrophils. No cultures ordered or pending. Right shoulder XR with deformity of right hmeral head/neck likely related to erosive changes of septic arthirits or osteomyelitis stable from multiple previous exams. Likely soft tissue gas seen on axillary view concerning for gas-forming infection. MRI thoracic, cervical, and lumbar spine ordered. No acute intervention per Orthopedics. ID consulted, recommended continuing IV Vanc and obtaining MRI right shoulder. OBJECTIVE Vital Signs: Vitals: 08/27/24 1057 08/27/24 1100 08/27/24 1302 08/27/24 1315 BP: 133/81 134/74 136/80 Pulse: 81 81 81 Resp: 18 16 16 Temp: 98.2 ??F (36.8 ??C) 98.2 ??F (36.8 ??C) SpO2: 94% 95% Weight: 107 kg (236 lb) Temp Min: 97.3 ??F (36.3 ??C) Max: 98.2 ??F (36.8 ??C), Pulse Min: 81 Max: 91, Resp Min: 14 Max: 19, BP Min: 121/69 Max: 204/116 Intake & Output: In: - Out: 600 [Urine:600] Physical Exam: General: Well appearing, interactive HEENT: NC/AT, +blind, MMM Heart: RRR Lungs: CTAB, normal effort Abd: Soft, NT/ND, +BS Ext: Moves spontaneously, no edema Skin: Warm, dry, no rash, Rt shoulder previous incision sites C/D/I, dressing over arthrocentesis site, previous L AKA Neuro: A&Ox3, non focal Psych: Appropriate mood Current Medications: Scheduled: 0.9% NaCl 3 mL Intracatheter q8h amLODIPine 10 mg Oral QDAY apixaban 5 mg Oral BID carvedilol 25 mg Oral BID WC [START ON 08/28/2024] furosemide 40 mg Oral , & SAT gabapentin 300 mg Oral FRI, FRI AND FRI gadobutrol Intravenous Contrast - Once [START ON 08/28/2024] lisinopril 40 mg Oral QDAY renal vitamin 1 tablet Oral QDAY sevelamer carbonate 800 mg Oral TID WC vancomycin (VANCOCIN) IV dose per pharmacy Does not apply DIRECTED Continuous: PRN: SALINE LOCK, INSERT AND MAINTAIN AND 0.9% NaCl AND 0.9% NaCl HYDROmorphone oxyCODONE (immediate release) Significant Lab Results: Reviewed Microbiology: Reviewed Imaging & Studies: Reviewed ASSESSMENT & PLAN Essential hypertension (POA: Yes) Swelling of right upper extremity (POA: Yes) ESRD (end stage renal disease) (HCC) (POA: Yes) ESR raised (POA: Yes) Type 2 diabetes mellitus with diabetic polyneuropathy, without long-term current use of insulin (HCC) (POA: Yes) Chronic bilateral back pain, unspecified back location (POA: Yes) Chronic osteomyelitis of right shoulder region (HCC) (POA: Yes) # Right shoulder pain and swelling # History of septic arthritis/ostemyelitis of R shoulder, L shoulder, MRSA bacteremia, multiple soft tissue abscesses - Synovial fluid analysis in the ED showing bloody red fluid with 3,700 total nucleated cells 83% neutrophils, 5% lymphocytes, 12% eosinophils - Significant infectious history with prior history of multiple septic arthritis episodes of bilateral shoulders, osteomyelitis of right leg s/p above the knee amputation, MRSA bacteremia, and multiple soft tissue abscesses of trunk and upper extremities. - Right shoulder tapped by ortho in ED, analysis was bland, ortho has low concern for active septicarthritis given these studies and patient's ROM on exam. - Saw ID in clinic 08/23/24 with plan to continue vancomycin through 09/10/24 -No clearly identified etiology for extensive infectious history. Patient with DM2 and history of chronic wounds 2/2 PAD but DM well controlled with most recent A1c 6.2 in 05/2024. Immunoglobulin studies ordered in 2021 with mildly reduced IgG to 663 (normal 700-1600). PLAN: - Continue vancomycin (anticipated EOT 09/10/24) - No acute intervention per Orthopedics, now signed off. Appreciate assistance -- Spoke with them re: significant RBCs on tap, no concern for hematoma contributing to shoulder sxs. No acute intervention. Ok to resume Eliquis. - ID consulted, appreciate assistance - Recs continue IV vanc, obtain MRI Rt shoulder wwo contrast -Consider referral to Immunology for immunological workup (CD4/CD8 ratio, immunoglobulin) in context of recurrent septic arthritis, osteomyelitis, and soft tissue abscesses - F/u synovial fluid cultures drawn 08/27 # T2DM - pt reports not taking any diabetes medications at home due to well-controlled A1c - last A1c 05/25/24: 6.2% - BG on arrival 104, defer accuchecks and SSI at this time, if BS elevated on daily labs can order accuchecks/SSI # ESRD on HD MWF Plan: - Nephrology consulted for HD - continue home iron supplement - continue home Lasix 40 mg po MWF - continue home gabapentin 300 mg MWF - continue home renal vitamin, Sevelamer #History of provoked DVT - plan for 3 months AC, started during last admission, however patient has been off since 08/09, unable to fill Rx - Resuming Eliquis 5 mg bid, d/w Ortho, no concerns from their end as noted above #Back pain -Patient endorses non specific back pain -Pending MRI spine results, will call Ortho with positive findings # PVD # R heel ulcer, POA - Wound care consult placed - Regular dressing changes # HTN # HLD # Anemia # HFpEF - last TTE 07/30/24 showing normal LV systolic function prior study 05/2024 demonstrated grade II diastolic dysfunction - increase home carvedilol to 25 mg bid, lisinopril to 40 mg daily, and continue home amlodipine 10mg daily Daily Checklist VTE PPX [x] SCD [] SQ Heparin [] SQ Lovenox [x] Therapeutic Anticoagulation VTE Chemical Prophylaxis Orders (From admission, onward) Ordered Start Stop 08/27/24 1011 apixaban (Eliquis) tablet 5 mg 5 mg, Oral, 2 TIMES DAILY 08/27/24 1045 -- VTE Mechanical Prophylaxis Orders (From admission, onward) Ordered Start 08/26/24 2326 SEQUENTIAL COMPRESSION DEVICE (IMPLEMENT) CONTINUOUS 08/26/24 2330 Stress Ulcer PPX [x] None [] Famotidine [] PPI Fluids Electrolytes Nutrition [x] None [] IV maintenance fluids [] IV colloid infusions K~4.0 Mg~2.0 Phos~3.0 DIET RENAL LDA Peripheral IV Anterior;Left Forearm (Active) Placement Date/Time: 08/26/24 180 Size (Gauge): 20 G Orientation: Anterior;Left Location: Forearm Number of days: 0 Midline 08/03/24 Left Brachial Vein Single Lumen (Active) Placement Date: 08/03/24 Placed by: Shelby SAMUEL Arm: Left Vein used: Brachial Vein Lumens: Single Lumen Pre-insertion upper extremity assessment: WNL - Skin intact Site(s) prepped with: Chloraprep IV Catheter Size: 4 Swiss Reason for placement... Number of days: 24 Hemodialysis Tunneled Catheter Subclavian The Original SoupMan 15.5 (Active) Placement Date/Time: 08/06/24 1158 Placed by: Fredi Harmon MD Dialysis Tunneled Catheter Location: Subclavian Hemodialysis Cath Orientation: Left Assistant Reading Teacher/Model : [employer]ility Medical Model: Duraflow 2 Reference Number: [id number] Lot Number: [id number]... Number of days: 20 Activity Level: Activity as tolerated WBAT RUE Consults IP CONSULT TO ORTHOPEDICS IP CONSULT TO NEPHROLOGY IP CONSULT TO INFECTIOUS DISEASES Disposition Observation - no acute surgical intervention, pending ID recs but likely continue vancomycin through 09/10/24. Continued admission for pain control. Code Status Full Code [facility] Transfer Checklist: Reasons for Transfer to [facility] Brief Hospital Course 33F presenting with Right shoulder pain the past few days. Known hx of right shoulder osteomyelitis, recurrent septic arthritis, MRSA bacteremia for which she was admitted for earlier this month. Shehas been on IV vancomycin (EOT 09/10/24). Ortho consulted and performed arthrocentesis - no concern for recurrent septic arthritis. ID consulted for abx recs. Her main complaint is inadequate pain control. No concerns for sepsis at this time. Pertinent PMH: Recurrent septic arthritis, right shoulder osteomyelitis, recent MRSA bacteremia, ESRD on HD MWF Nutritional Requirements (Dysphagia Diet / TPN / Tube Feed) Renal Home Meds Being Held: She had not been taking apixaban since 08/09 (needed 3 months for provoked DVT last month); I re-ordered it this morning, ok per Ortho ABx Indications/End Date: IV Vancomycin (right shoulder OM) - through 09/10/24 -- Pending ID recs, but this was her previous Consult Teams Past and Present: Ortho (signed off) ID Nephrology Pending Workup: MRI C/T/L spine to eval abscess; call Ortho if any positive findings MRI Rt shoulder wwo con Things to Watch: I suspect there is some pain seeking behavior, but she certainly has reasons to be in pain particularly with her right shoulder. Unless ID makes changes to abx recs, at this point it is largely an admission for pain control. Disposition Place and Date: TBD - PT/OT ordered To Address Prior to DC: She had been getting vancomycin at her outpatient HD unit, so I would confirm that this is still able to be done when she leaves the hospital Follow Up Appointments: (Already arranged and need to arranged) ID - 09/08/24 To Address after DC (F/U etc): PCP - sounds like she had difficulty picking up prescriptions after her last hospitalization Wound care instructions (if applicable) Currently has dressing over Rt shoulder Please add PRN Narcan order if appropriate for this patient Harpreet Katz DO Hospitalist [facility] 08/27/2024 1:46 PM * Terri Garcia RN - 08/27/2024 9:53 AM CDT Diagnosis (BOBBY/CRF): crf Non-Renal Diagnosis: shoulder pain, septic joint Isolation No active isolations Does patient have signs or symptoms of respiratory infection(fever, cough, shortness of breath): no No Known Allergies Code Status: full Orientation Status: x4 On telemetry/Rhythm: no Oxygen: room air Given any medications: see mar Need for pain medications: no Blood pressure issues: hypertension On any drips: no Is patient diabetic: no Any labs to draw: Any other procedures today: no Any concerns about this patient : no Any medications to be given with dialysis: none Report from: Jazmyne SAMUEL Phone number: [phone] * Imelda Balbuena PharmD - 08/27/2024 8:11 AM CDT Vancomycin Eydlupxn-id-Ahux One Time Dose Vancomycin is being prescribed for documented Bacteremia with Goal Level: pre HD level 15-20 mcg/ml. Per chart review/provider discussion the patient was noted to be on vancomycin prior to this review: Yes, has been receiving vancomycin with HD on MWF, arrived on 08/26 with vancomycin dose infusing from [facility] . Will order a random level now, which may serve as a pre-dialysis level Full [id number]-ut-[id number] review and progress note to follow. Eliezer AgustinD [facility] Vancomycin Guideline * Nitesh Stephens MD - 08/27/2024 5:06 AM CDT Orthopaedic Trauma Surgery Daily Progress Note Name: Gay Canales Age: [age] year old Room: [place] [address] Date Admitted: 08/26/2024 Interval History: Patient seen and examined on rounds this AM. No acute events overnight. Pain is controlled. No new numbness or tingling. Labs CBC Recent Labs Component Name 08/26/24231108/25/24 0950 08/23/24 1522 WBC 11.0* 16.2* 12.5* HGB 10.1* 9.9* 10.1* HCT 33.2* 32.5* 33.3* PLTCOUNT 404 424* 451* BMP Recent Labs Component Name 08/26/24231108/25/24 0950 08/09/24 0945 08/07/24 0547 08/06/24 0402 NA 140 134* 139 138 135* POTASSIUM 5.4* 4.5 4.2 4.2 4.2 CL 111* 108* 100 98 96* CO2 17* 17* 24 26 29 BUN 34* 27* 30* 33* 18 CREATININE 5.04* 3.61* 6.80* 6.99* 4.60* GLUCOSE 104* 293* 184* 218* 230* CALCIUM 8.7 8.6 8.6 8.9 8.7 MAGNESIUM - 1.8 - 2.3 2.1 PHOS - - 4.9 5.9* 4.7 Coags Recent Labs Component Name 08/07/24 0547 08/06/24 0402 08/05/24 0431 08/04/24 0355 08/04/24 0254 08/03/24 1107 08/03/24 0538 08/02/24 1753 08/02/24 0804 PT - - - - 14.6 - 14.5 - 13.3 INR - - - - 1.2 - 1.2 - 1.0 PTT 35.0 99.3* 97.3* - 169.8* - 150.1* - 43.2* - = values in this interval not displayed. Vitamin D Recent Labs Component Name 02/25/24 0110 [id number] 12.3* Vitals BP 125/81 Pulse 86 Temp 97.3 ??F (36.3 ??C) (Temporal) Resp 16 SpO2 93% Temp (24hrs), Av.8 ??F (36.6 ??C), Min:97.3 ??F (36.3 ??C), Max:98 ??F (36.7 ??C) Physical Exam General appearance: Alert, cooperative, and no apparent distress Right upper extremity: Fires motor R/M/U/AIN/PIN, Sensation intact in R/M/U nerve distributions distally, extremity warm and well perfused. Assessment and Plan: Gay Canales is a 33 year old female with initial concern for septic arthritis of the right shoulder. Patient previously treated for right shoulder septic arthritis 07/27/[address] Chapman for R shoulder I&D. Repeat aspiration in ED is not concerning for recurrent septic arthritis. Plan: Weight bearing status: right upper extremity: WBAT No additional orthopedic interventions at this time. Recommend medical management with antibiotics per primary/ID. Diet: OK from ortho perspective Current Dispo: per primary Nitesh Stephens MD 08/27/2024 5:07 AM documented in this encounter H&P Notes * Christian Mcguire MD - 08/26/2024 11:42 PM CDT [facility] INTERNAL MEDICINE HISTORY & PHYSICAL NOTE Date of Admission: 08/26/2024 Patient: Gay Canales Sex: female Age: [age] year old Date of : 1990 Code Status: Full Code SUBJECTIVE Chief Complaint: Chief Complaint Patient presents with Shoulder Pain Pt bibEMS from OSH with c/o R shoulder pain and possible septic joint. Pt arrives with NS bolus andVancomycin infusing. A&Ox4, VSS. History of Present Illness: Gay Canales is a 33 year old female with h/o T2DM, ESRD on HD TTS, HTN, HLD, hx of RUE DVT, anemia, PVD, blindness, s/p L AKA, HFpEF, prior hx of infectious arthritis presenting from [facility] for 1 week history of right shoulder pain. Patient states that she starting having right arm pain one week ago that has worsened since then and is now a 10/10 throbbing pain. The pain is located on the anterior aspect of her shoulder and extends down the anterior aspect of her upper arm. Movement of the arm joint seems to worsen her pain, patient says she had received dilaudid in the past and that helped her pain. Notably, while patient endorses current 10/10 pain she was resting comfortably in bed and asleep when I entered her room forthe interview. She also endorses an occasional pain that travels down her spine and involves her lower back and chest. That pain feels sharp, always happens at rest, and usually lasts 30-40 seconds before self resolving. Patient also endorses night sweats but denies ongoing fevers or chills. The patient has a history of numerous admissions over the past year for bilateral shoulder pain, bilateral septic shoulder arthritis, and multiple soft tissue abscesses. ID notes from 08/04 and 08/23details all prior admissions including culture results from each admission. On 08/04, ID recommended 6 weeks of vancomycin IV with HD from first negative blood culture through 09/10/2024 for recurrentseptic arthritis. Most recent office visit on 08/[address] chest with contrast to reevaluate right subscapularis abscess, which the patient went to [facility] to pursue. Unsure the extent of the workup patient has received for these recurrent episodes, although immunoglobulins ordered in 07/2022 at [facility] that were significant for mildly decreased IgG to 663.0 (normalrange 700-1600). Echocardiography 07/30/2024 with normal LV systolic function, no thrombus or valvular vegetations appreciated. The patient also has a history of DM2, but states she does not currently take any medication for itas her last Hgb A1c was 5.9 last (last A1c in our system was 6.2 on 05/25/2024. In the ED, labs significant for hyperkalemia to 5.4, Cr 5.04, Alk phos 215, normocytic anemia to Hgb 10.1. Orthopedic surgery drained her joint and fluid aspirate analysis with bloody fluid and 3,700total nucleated cells with 83% neutrophils. No cultures ordered or pending. Right shoulder XR with deformity of right hmeral head/neck likely related to erosive changes of septic arthirits or osteomyelitis stable from multiple previous exams. Likely soft tissue gas seen on axillary view concerning for gas-forming infection. MRI thoracic, cervical, and lumbar spine ordered but not yet performed. The patient received oxycodone 5 mg at 2248 but reported it didn't help her pain at all. She reports only morphine or dilaudid has helped her pain in the past. Past Medical History: Past Medical History: Diagnosis Date Essential (primary) hypertension Heart failure (HCC) Type 2 diabetes mellitus without complications (HCC) Past Surgical History: Past Surgical History: Procedure Laterality Date DEBRIDEMENT Right 07/27/2024 Right; RIGHT SHOULDER INCISION AND DEBRIDEMENT LEG AMPUTATION ABOVE KNEE Left 12/05/2022 Left; AMPUTATION ABOVE LEFT KNEE Leg Amputation, Below Knee Left 12/02/2022 Left; LEFT ANKLE DISARTICULATION LEVEL 2 @ 2220 Family History: Family History Problem Relation Name Age of Onset Diabetes - Type 2 Mother Hypertension Mother Diabetes - Type 2 Father Hypertension Father Diabetes - Type 2 Paternal Grandmother Hypertension Paternal Grandmother Social History: Social History Socioeconomic History Marital status: Single Spouse name: Not on file Number of children: Not on file Years of education: Not on file Highest education level: Not on file Occupational History Not on file Tobacco Use Smoking status: Former Types: Cigarettes Start date: 2010 Smokeless tobacco: Never Tobacco comments: Quit 4-5 months after starting Vaping Use Vaping status: Never Used Substance and Sexual Activity Alcohol use: Not Currently Comment: Occassionally Drug use: Not Currently Types: Marijuana Comment: At age 20 for 4-5 months Sexual activity: Not Currently Other Topics Concern Not on file Social History Narrative Not on file Social Determinants of Health Financial Resource Strain: Low Risk (07/26/2024) Overall Financial Resource Strain (CARDIA) Difficulty of Paying Living Expenses: Not hard at all Food Insecurity: No Food Insecurity (07/26/2024) Hunger Vital Sign Worried About Running Out of Food in the Last Year: Never true Ran Out of Food in the Last Year: Never true Transportation Needs: No Transportation Needs (07/26/2024) PRAPARE - Transportation Lack of Transportation (Medical): No Lack of Transportation (Non-Medical): No Stress: No Stress Concern Present (07/26/2024) [employer] [place] [employer] - Occupational Stress Questionnaire Feeling of Stress : Not at all Housing Stability: Low Risk (07/26/2024) Housing Stability Vital Sign Unable to Pay for Housing in the Last Year: No Number of Places Lived in the Last Year: 2 Unstable Housing in the Last Year: No Recent Concern: Housing Stability - High Risk (05/23/2024) Housing Stability Vital Sign Unable to Pay for Housing in the Last Year: No Number of Places Lived in the Last Year: 7 Unstable Housing in the Last Year: No Allergies: No Known Allergies Home Medications: No current facility-administered medications on file prior to encounter. Current Outpatient Medications on File Prior to Encounter Medication Sig Dispense Refill acetaminophen (Tylenol) 500 MG tablet Take 1 (one) tablet by mouth every 4 hours Maximum allowable Acetaminophen amount = 4 Grams (4000 mg) / 24 hours. (Patient not taking: Reported on 08/23/2024) Alcohol Swabs (Alcohol Prep) 70 % USE ONE SWAB TO CLEAN SKIN FOUR TIMES DAILY BEFORE TESTING (Patient not taking: Reported on 08/23/2024) 100 Each PRN amLODIPine (Norvasc) 10 MG tablet Take 1 (one) tablet by mouth once daily 30 tablet 0 apixaban (Eliquis) 5 MG tablet Take 2 (two) tablets by mouth 2 times daily for 4 days, THEN 1 (one)tablet 2 times daily for 90 days. (Patient not taking: Reported on 08/23/2024) 196 tablet 0 bisacodyl (Dulcolax) 10 MG suppository Insert 1 (one) suppository into the rectum once daily as needed for Constipation (Patient not taking: Reported on 08/23/2024) blood glucose (Janalakshmi Verio) test strip USE ONE STRIP TO TEST BLOOD SUGAR FOUR TIMES DAILY (Patient not taking: Reported on 08/23/2024) 100 strip PRN Blood Glucose Monitoring Suppl (Janalakshmi Verio Reflect) w/Device KIT Use 1 kit 4 times daily USE METER TO CHECK BLOOD GLUCOSE FOUR TIMES DAILY Reasons: CALL [facility] WHEN DELIVERING [id number] 1 kit 0 carvedilol (Coreg) 12.5 MG tablet Take 1 (one) tablet by mouth 2 times daily with morning and evening meal 60 tablet 0 FeroSul 325 (65 Fe) MG tablet Take 1 (one) tablet by mouth daily with breakfast (Patient not taking: Reported on 08/23/2024) furosemide (Lasix) 40 MG tablet Take 1 (one) tablet by mouth every Friday, Friday & Friday (Patient not taking: Reported on 08/23/2024) 0 gabapentin (Neurontin) 300 MG capsule Take 1 (one) capsule by mouth every Friday, Friday & Friday 30 capsule 0 Gauze Pads & Dressings (Gauze Dressing) 4 X4 PADS Use 1 Pad every 2 days Apply to right shoulder, change dressing every 48 hours, sooner if needed. (Patient not taking: Reported on 08/23/2024) 24 Each 1 Lancets (TradyoTOUCH DELICA PLUS 33G EXTRA FINE LANCET) USE ONE LANCET TO PRICK FINGER FOUR TIMES DAILY FOR BLOOD GLUCOSE TESTING (Patient not taking: Reported on 08/23/2024) 100 Each PRN lisinopril (Prinivil; Zestril) 20 MG tablet Take 1 (one) tablet by mouth once daily 30 tablet 0 melatonin 3 MG tablet Take 1 (one) tablet by mouth nightly as needed for Insomnia (Patient not taking: Reported on 08/23/2024) oxyCODONE, immediate release, (Roxicodone) 10 MG tablet Take 1 (one) tablet by mouth every 4 hours as needed for Pain 12 tablet 0 renal vitamin (Dialyvite) tablet Take 1 (one) tablet by mouth once daily (Patient not taking: Reported on 08/23/2024) senna (Senokot) 8.6 MG tablet Take 1 (one) tablet by mouth once daily (Patient not taking: Reportedon 08/23/2024) sevelamer carbonate (Renvela) 800 MG Take 1 (one) tablet by mouth 3 times daily with meals (Patientnot taking: Reported on 08/23/2024) vancomycin 750 mg in 0.9% NaCl IV 0.9 % 250 mL 750 (seven hundred fifty) mg by Intravenous route every Friday, , & Friday for 35 days (Patient not taking: Reported on 08/23/2024) Current Medications: Scheduled: [START ON 08/27/2024] 0.9% NaCl 3 mL Intracatheter q8h acetaminophen 1,000 mg Oral Now Continuous: PRN: SALINE LOCK, INSERT AND MAINTAIN AND [START ON 08/27/2024] 0.9% NaCl AND 0.9% NaCl oxyCODONE (immediate release) Review of Systems: (positives are bolded) CONSTITUTIONAL: fatigue, weight loss, fevers, chills, sweats, malaise, anorexia EYES: double vision, eye pain ENT: hearing loss, tinnitus, vertigo, epistaxis RESP: shortness of breath, dyspnea on exertion, cough, pleuritic chest pain, wheezing CV: palpitations, syncope, chest pain, edema, orthopnea, PND GI: dysphagia, nausea, vomiting, abdominal pain, constipation, diarrhea : incontinence, dysuria, frequency, hematuria, kidney stone MSK: joint stiffness, swelling, pain NEURO: headaches, syncope, seizures, gait problems, tremor, balance, memory SKIN: rash, itching, bruising, lumps or bumps PSYCH: depressed mood, anxiety, suicidal or homicidal ideation ENDO: cold or heat intolerance, polyphagia, polydipsia, polyuria HEME: anemia, bleeding disorder, abnormal bruising, blood clots OBJECTIVE Vital Signs: Temp: [97.3 ??F (36.3 ??C)-98.1 ??F (36.7 ??C)] 97.3 ??F (36.3 ??C) Pulse: [84-91] 90 Resp: [14-19] 16 BP: (149-204)/(91-116) 158/95 Physical Exam: General: obese, patient was sleepy and lying comfortably in bed, no acute distress, cooperative with exam Head: normocephalic, atraumatic Eyes: conjunctivae clear Mouth/Throat: oropharynx clear with no lesions, moist mucous membranes Neck: no jugular venous distension CV: regular rate and rhythm, no murmurs appreciated Resp: clear to auscultation bilaterally, no wheezes or crackles heard Abd: soft, nontender, nondistended, normoactive bowel sounds Extremities: no lower extremity edema, s/p left above the knee amputation no cyanosis, limited range of motion of right shoulder joint Skin: skin color and turgor normal, multiple poorly healed scars along the patient's right lower extremity. Open heel wound on right heal draining yellow serosanguinous fluid and wrapped in a gauze dressing Neuro: A&Ox4, no focal deficits Lab Results: CBC: Recent Labs Component Name 08/26/24231108/25/24 0950 08/23/24 1522 WBC 11.0* 16.2* 12.5* HGB 10.1* 9.9* 10.1* HCT 33.2* 32.5* 33.3* MCV 95.4 97.6 95.7 Coagulation Panel: Recent Labs Component Name 08/07/24 0547 08/06/24 0402 08/05/24 0431 08/04/24 0355 08/04/24 0254 08/03/24 1107 08/03/24 0538 08/02/24 1753 08/02/24 0804 PT - - - - 14.6 - 14.5 - 13.3 INR - - - - 1.2 - 1.2 - 1.0 PTT 35.0 99.3* 97.3* - 169.8* - 150.1* - 43.2* - = values in this interval not displayed. BMP: Recent Labs Component Name 08/26/24231108/25/24 0950 08/09/24 0945 NA 140 134* 139 POTASSIUM 5.4* 4.5 4.2 CL 111* 108* 100 CO2 17* 17* 24 BUN 34* 27* 30* CREATININE 5.04* 3.61* 6.80* CALCIUM 8.7 8.6 8.6 Recent Labs Component Name 08/25/24 0950 08/07/24 0547 08/06/24 0402 MAGNESIUM 1.8 2.3 2.1 Recent Labs Component Name 08/09/24 0945 08/07/24 0547 08/06/24 0402 PHOS 4.9 5.9* 4.7 Hepatic Panel: Recent Labs Component Name 08/26/24 2312 08/25/24 0950 08/09/24 0945 08/07/24 0547 AST 13 10 - 10 ALT 6 8 - <5* ALKPHOS 215* 216* - 106 TBILI 0.2 0.3 - 0.2 ALB 2.5* 2.6* 2.1* 2.1* ABG: Recent Labs Component Name 08/05/24203105/17/23 2206 12/03/22 1856 PH 7.44 7.39 7.28* PCO2 40 - - PO2 99 - - Amylase/Lipase: Invalid input(s): AMYL , LIPA Thyroid Studies: No results for input(s): TSH , T4 in the last 92975 hours. Cardiac Enzymes: Recent Labs Component Name 04/27/23 0729 12/02/22 195 CKTOTAL 1,624* - TROPONINI - 0.023 Lipid Panel: Recent Labs Component Name 12/02/222032 LDLCALC 74 HDL 8* Microbiology: Synovial fluid culture (including anaerobic culture) ordered Imaging & Studies: Right shoulder XR 08/26/2024: Impression: Deformity at the right humeral head/neck likely related to erosive changes of septic arthritis/osteomyelitis at the right shoulder seen on multiple previous exams. Deformity appears to have progressed since the previous x-ray on 07/26/2024. There is likely soft tissue gas, seen on the axillary view concerning for gas-forming infection. Otherwise, no acute fracture or dislocation is identified. ASSESSMENT & PLAN Problem List: Active Problems: Essential hypertension Swelling of right upper extremity ESRD (end stage renal disease) (HCC) ESR raised Type 2 diabetes mellitus with diabetic polyneuropathy, without long-term current use of insulin (HCC) Chronic bilateral back pain, unspecified back location Gay Canales is a 33 year old female with h/o T2DM, ESRD on HD TTS, HTN, HLD, hx of RUE DVT, anemia, PVD, blindness, s/p L AKA, HFpEF, prior hx of infectious arthritis presenting from [facility] for 1 week history of right shoulder pain. # Right shoulder pain and swelling # History of septic arthritis of R shoulder, L shoulder, MRSA bacteremia, multiple soft tissue abscesses # History of right leg osteomyelitis s/p above the knee amputation - Synovial fluid analysis in the ED showing bloody red fluid with 3,700 total nucleated cells 83% neutrophils, 5% lymphocytes, 12% eosinophils - Significant infectious history with prior history of multiple septic arthritis episodes of bilateral shoulders, osteomyelitis of right leg s/p above the knee amputation, MRSA bacteremia, and multiple soft tissue abscesses of trunk and upper extremities. - Right shoulder tapped by ortho in ED, analysis was bland, ortho has low concern for active septicarthritis given these studies and patient's ROM on exam. Still to determine care plan given radiologic evidence of osteomyelitis. - ID had been following patient after recent admission 08/04/2024 for right shoulder septic arthritis management. -No clearly identified etiology for extensive infectious history. Patient with DM2 and history of chronic wounds 2/2 PAD but DM well controlled with most recent A1c 6.2 in 05/2024. Immunoglobulin studies ordered in 2021 with mildly reduced IgG to 663 (normal 700-1600). PLAN: - Continue vancomycin with HD per ID note 08/23 - Ortho consult in AM - ID consult in AM -Consider detailed immunological workup (CD4/CD8 ratio, immunoglobulin) in context of recurrent septic arthritis, osteomyelitis, and soft tissue abscesses - F/u synovial fluid cultures drawn 08/27 # T2DM # ESRD on HD MWF - pt reports not taking any diabetes medications at home due to well-controlled A1c - last A1c 05/25/24: 6.2% Plan: - consult nephrology in AM for HD management - continue home iron supplement - continue home Lasix 40 mg po MWF - continue home gabapentin 300 mg MWF - continue home renal vitamin, sevelamer #Back pain #Chest pain -Patient also endorses sporadic episodes of back and chest pain that always coincide. She describesshooting sensation down her spine with subsequent sharp lower back and chest pain that lasts 30-40 seconds before self-resolving. Description does not sound specific to any particular medical condition but workup in ED included MRI cervical, thoracic, lumbar spine. Plan: -F/u MRI spine results # PVD # R heel ulcer - Wound care consult placed - Regular dressing changes # HTN # HLD # Anemia # HFpEF - last TTE 07/30/24 showing normal LV systolic function prior study 05/2024 demonstrated grade II diastolic dysfunction - Continue home carvedilol 12.5 mg bid, lisinopril 20 mg daily, and amlodipine 10 mg daily Code: Full Diet: Renal Electrolytes: Replete PRN PPx: subq heparin Access: Left brachial midline, left subclavian tunneled HD catheter, left forearm PIV Dispo: Admit to Medicine. The above assessment and plan will be discussed with the attending. This note is not final until attested by attending physician. Christian Mcguire MD Internal Medicine Resident [facility] 08/26/2024 11:42 PM Associated attestation - Jose Guadalupe Vigil MD - 08/27/2024 7:26 AM CDT I have seen and examined the patient with the resident and I agree with the findings and plan of care as documented by the resident. Briefly summarizing the plan: -ortho was reached out overnight and the do not think patient has septic arthritis but they will continue to follow her case -please consult ID to guide regarding need, type and duration of antibiotics as patient had long and extensive course of infections that are recurrent -please give immunology referral upon discharge -if patient staying, nephrology consultation will be needed for inpatient hemodialysis -follow-up MRI spine formal report -patient states that she stopped using Eliquis since August 09 when she left facility against medical advice. Anticoagulation needs to be resumed when appropriate Date of Service: 08/26/24 Jose Guadalupe Vigil MD documented in this encounter Procedure Notes * Said, Octavio Robledo MD - 09/01/2024 11:54 AM CDT Procedure: Hemodialysis Indication: ESRD. This patient was seen and examined by me during dialysis today.09/01/2024 Time 3.5 hrs Left IJ TDC Qb 350ml/min 2 k bath Dialyzer UF 1 liters Na 140 * Octavio Cuellar MD - 08/30/2024 3:52 PM CDT Procedure: Hemodialysis Indication: ESRD. This patient was seen and examined by me during dialysis today.08/30/2024 Time 3.5 hrs Left IJ TDC 3 k bath Dialyzer UF 2.5 - 3 liters Na 140 She was in IR today and had aspiration of Rt shoulder fluid and drain placement . * Adolfo Browne MD - 08/26/2024 6:34 PM CDT Patient Name: Gay Canales Date of Procedure: 08/29/2024 PROCEDURE: Joint aspiration of right shoulder PERMIT: The procedure and its risks and benefits were discussed at length with the patient and . Verbal and written informed consent was obtained. INDICATION: right shoulder pain PHYSICIAN: Adolfo Browne MD DESCRIPTION: After proper consent was obtained, a timeout was performed. The skin over the joint was thoroughly cleansed with chlorhexidine, and the joint was entered from the posterior portal. Less than 5 cc of bloody fluid was withdrawn. The needle was withdrawn and gauze applied to entry site. Pt. Tolerated the procedure well. BLOOD LOSS: None COMPLICATIONS: None DISPOSITION: Patient alert, oriented, and resting. Digits are warm and well perfused Sensation intact distally. Remainder of plan per consult note. documented in this encounter Consult Notes * Briana Larson PA-C - 08/30/2024 12:22 PM CDTAssociated Order(s): IP CONSULT TO INTERVENTIONAL RADIOLOGY Vascular & Interventional Radiology New Inpatient Consult Patient: Gay Canales Age: [age] year old Date of : 1990 Date of Admission: 08/26/2024 Date: 08/30/2024 Subjective: Referring physician: Dr. Rabago ([facility]) Reason for consult: drainage of soft tissue fluid collection, concern for abscess HPI: 33 year old female with PMHx of recurrent MRSA bacteremia, essential HTN, T2DM, hyperlipidemia, ESRD on HD, CHF, PAD w. 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 Patient with multiple admission this year for MRSA bacteremia, most recent 07/25 - 08/09. Found to have right shoulder septic arthritis, right subscapularis abscess and right humeral head osteomyelitis. Patient eventually discharged with 6 weeks IV vancomycin (EOT 09/10/2024). This visit, ortho consulted in ED and completed right shoulder joint aspiration, fluid studies withlow concern for active septic arthritis. MRI of right shoulder demonstrates a 7.6X4.0X5.7 peripherally enhancing fluid collection containing gas in the anterior soft tissue involving deltoid and pectoralis muscles. Patient reports continued, chronic right shoulder pain. Worsens with movement, especially shoulder flexion and abduction. Improved with pain meds. Denies other complains including fever/chills, nausea/vomiting, chest pain or SOB. VSS, afebrile. WBC: 9.6. INR: 1.2. Plt: 407. Patient is currently on Eliquis for recent DVT, last dose 8AM 08/30. Past Medical History: Diagnosis Date Essential (primary) hypertension Heart failure (HCC) Type 2 diabetes mellitus without complications (HCC) Past Surgical History: Procedure Laterality Date DEBRIDEMENT Right 07/27/2024 Right; RIGHT SHOULDER INCISION AND DEBRIDEMENT LEG AMPUTATION ABOVE KNEE Left 12/05/2022 Left; AMPUTATION ABOVE LEFT KNEE Leg Amputation, Below Knee Left 12/02/2022 Left; LEFT ANKLE DISARTICULATION LEVEL 2 @ 2220 No Known Allergies Social History Tobacco Use Smoking status: Former Types: Cigarettes Start date: 2010 Smokeless tobacco: Never Tobacco comments: Quit 4-5 months after starting Substance Use Topics Alcohol use: Not Currently Comment: Occassionally Family History Problem Relation Name Age of Onset Diabetes - Type 2 Mother Hypertension Mother Diabetes - Type 2 Father Hypertension Father Diabetes - Type 2 Paternal Grandmother Hypertension Paternal Grandmother Pertinent aspects of the patient's past medical, surgical, family, and social history are mentionedin the HPI above. Remaining PSFH was also reviewed and is not pertinent to the presenting problem. ROS: A complete ROS was performed. Pertinent positives and negatives are listed below. All other systemsreviewed were negative. Constitutional: negative for fevers or chills Respiratory: negative for shortness of breath Cardiovascular: negative for chest pain or discomfort Medications: Scheduled: 0.9% NaCl 3 mL Intracatheter q8h acetaminophen 1,000 mg Oral q8h amLODIPine 10 mg Oral QDAY carvedilol 25 mg Oral BID WC furosemide 40 mg Oral TU, THUR & SAT gabapentin 300 mg Oral MON, FRI AND FRI gadoterate meglumine Intravenous Contrast - Once insulin aspart 0-6 Units Subcutaneous TID WC lidocaine 1 patch Transdermal q24h lisinopril 40 mg Oral QDAY methocarbamol 500 mg Oral q8h polyethylene glycol 3350 17 g Oral QDAY renal vitamin 1 tablet Oral QDAY senna-docusate 1 tablet Oral QDAY sevelamer carbonate 800 mg Oral TID WC vancomycin 750 mg Intravenous MON, WED AND FRI vancomycin (VANCOCIN) IV dose per pharmacy Does not apply DIRECTED PRN: SALINE LOCK, INSERT AND MAINTAIN AND 0.9% NaCl AND 0.9% NaCl dextrose IV for hypoglycemia OR dextrose IV for hypoglycemia OR glucagon glucose (Diabetic Use) gel HYDROmorphone oxyCODONE (immediate release) OR oxyCODONE (immediate release) Infusions: Objective: Physical examination: BP 130/76 (BP Location: Left arm, Patient Position: Lying) Pulse 77 Temp 98.5 ??F (36.9 ??C) (Oral) Resp 18 Wt 110.4 kg (243 lb 4.8 oz) SpO2 94% Estimated body mass index is 38.11 kg/m?? as calculated from the following: Height as of an earlier encounter on 08/26/24: 1.702 m (5' 7 ). Weight as of this encounter: 110.4 kg (243 lb 4.8 oz). General: no acute distress HEENT: atraumatic Lungs: normal respiratory effort, no accessory muscle use Cardiovascular: regular rate Extremities: healed surgical scar on right shoulder with surrounding swelling and induration, no erythema or fluctuance appreciated. Nontender to palpation. Psychiatric: AOx 3, appropriate mood and affect Laboratory findings: Recent Labs Component Name 10/27/202308/28/24202808/26/242 12/03/22 0242 12/02/22 1955 WBC 9.6 10.1 11.0* - 42.0* HGB 9.1* 8.9* 10.1* - 8.9* HCT 30.2* 29.5* 33.2* - 28.3* PLTCOUNT 407 406 404 - 556* PLATELET - - - - Occasional* - = values in this interval not displayed. Recent Labs Component Name 08/04/24 0254 08/03/24 0538 08/02/24 0804 INR 1.2 1.2 1.0 Recent Labs Component Name 08/29/24202308/28/24202808/26/242311 NA 139 138 140 GLUCOSE 177* 215* 104* CREATININE 6.51* 5.33* 5.04* EGFR 8* 10* 11* Recent Labs Component Name 08/29/24202308/28/24202808/26/24231108/25/24 0950 08/09/24 0945 08/07/24 0547 ALB 2.2* 2.3* 2.5* 2.6* - 2.1* TBILI - - 0.2 0.3 - 0.2 ALT - - 6 8 - <5* AST - - 13 10 - 10 ALKPHOS - - 215* 216* - 106 - = values in this interval not displayed. Imaging: Relevant imaging studies were personally reviewed by myself and the IR attending, Dr. Nugent. MRI Shoulder Right Wwo Cont Result Date: 08/30/2024 IMPRESSION: 1.Extensive bone marrow edema in the humeral head with erosions, a glenohumeral effusion, and synovitis. These findings are compatible with septic arthritis and osteomyelitis. 2.Increasedfluid in the subacromial-subdeltoid bursa with associated enhancement compatible with bursitis. 3.A7.6 x 4.0 x 5.7 fluid collection containing gas in the anterior soft tissues compatible with abscess. 4.Extensive soft tissue edema and enhancement compatible with cellulitis and myositis. > Dictated by Kranthi Alvarez MD, (executive vice president and chief operating officer). I, Xander De Guzman MD have personally reviewed and interpreted this examination/study. > Interpreting Provider: Xander De Guzman MD on 08/30/2024 9:01 AM MRI Thoracic Spine Wwo Cont Result Date: 08/27/2024 IMPRESSION: 1. No areas of abnormal contrast enhancement noted throughout the spine. Multilevel mild to moderate facet arthropathy in the lower lumbar spine otherwise no significant degenerative changes noted including cervical and thoracic spine. 2. No abnormal cord signal within the limits of thestudy. 3. Partially visualized prominent lymph nodes in the posterior mediastinum/left upper para-aortic region also seen on prior study. Partially visualized enhancement in the right shoulder with enlarged right axillary lymph nodes could be secondary to known septic arthritis. This study was dictated by executive vice president and chief operating officer Anam Pearson MD and reviewed and edited by the attending. Mery Kim MD have personally reviewed and interpreted this examination/study. > Interpreting Provider: Mery Esqueda MD on 08/27/2024 12:10 PM MRI Cervical Spine Wwo Cont Result Date: 08/27/2024 IMPRESSION: 1. No areas of abnormal contrast enhancement noted throughout the spine. Multilevel mild to moderate facet arthropathy in the lower lumbar spine otherwise no significant degenerative changes noted including cervical and thoracic spine. 2. No abnormal cord signal within the limits of thestudy. 3. Partially visualized prominent lymph nodes in the posterior mediastinum/left upper para-aortic region also seen on prior study. Partially visualized enhancement in the right shoulder with enlarged right axillary lymph nodes could be secondary to known septic arthritis. This study was dictated by executive vice president and chief operating officer Anam Pearson MD and reviewed and edited by the attending. Mery Kim MD have personally reviewed and interpreted this examination/study. > Interpreting Provider: Mery Esqueda MD on 08/27/2024 12:10 PM MRI Lumbar Spine Wwo Contrast Result Date: 08/27/2024 IMPRESSION: 1. No areas of abnormal contrast enhancement noted throughout the spine. Multilevel mild to moderate facet arthropathy in the lower lumbar spine otherwise no significant degenerative changes noted including cervical and thoracic spine. 2. No abnormal cord signal within the limits of thestudy. 3. Partially visualized prominent lymph nodes in the posterior mediastinum/left upper para-aortic region also seen on prior study. Partially visualized enhancement in the right shoulder with enlarged right axillary lymph nodes could be secondary to known septic arthritis. This study was dictated by executive vice president and chief operating officer Anam Pearson MD and reviewed and edited by the attending. I, Mery Esqueda MD have personally reviewed and interpreted this examination/study. > Interpreting Provider: Mery Esqueda MD on 08/27/2024 12:10 PM Recommendations: 33 year old female with history noted above including extensive history of MRSA bacteremia, septic arthritis and osteomyelitis to referred to VIR for drainage of right shoulder fluid collection. Pertinent labs and relevant imaging studies were reviewed in detail and discussed by VIR attending,Dr. Nugent. VIR is amenable to aspiration vs drain placement into right shoulder fluid collection. Risks, benefits, and alternatives of the procedure were discussed in detail. Risks include but arenot limited to infection, bleeding, and injury to surrounding structures. All questions were answered to the best of my ability. The following physicians are qualified to perform the procedure and include: Albert Kemp, Glenys Antunez, Blaine Verdin Serban, Sherwani, Malik, Pereira. Written informed consent will be obtained prior to the procedure. Make patient NPO after midnight. Hold all 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. Plan for image guided aspiration vs drain placement into right shoulder fluid collection and related interventions. Desired fluid studies to be placed by primary team. The IR attending, Dr. Nugent, is in agreement with the above recommendations. The case was discussed with Dr. Rabago from the referring service on 08/30/2024 at ~12:45PM. Thank you for allowing us to participate in the care of this patient. Please do not hesitate to contact us with further questions or concerns. Briana Larson PA-C Vascular and Interventional Radiology [facility]: [phone] [place] [facility]: [phone] Associated attestation - Shayla Nugent MD - 08/30/2024 2:23 PM CDT Attending Physician Attestation Date of Service: 08/30/2024 For this patient encounter, I have reviewed the PA's note. I have personally reviewed the patient'slabs, imaging, medications, and allergies. I agree with the history, physical exam findings, assessment, and plan. Of note the patient does not have a urine test in the last 1 month. Patient is unable to urinate right now and attests that she is not and is aware of the risk of potential radiation in this scenario and is willing to proceed. SHAYLA NUGENT MD Farm Management Supervisor Vascular & Interventional Radiology 08/30/2024 2:00 PM * Shruti Fajardo - 08/27/2024 3:03 PM CDTAssociated Order(s): IP CONSULT TO NUTRITIONAL SERV BRIEF SYNOPSIS: Nutrition Risk Identified and evaluation in progress Dietary Intake: Weight Change: Fat Loss: Muscle Loss: Body mass index is 36.96 kg/m??. GI Concerns: None Nutrition Plan: Current diet order: Renal Standard + Nepro (425 kcal, 19 gm protein) BID Recommendation to Physician: + Recommend redrawing A1c Discharge Needs: N/A CLINICAL NUTRITION ASSESSMENT: RD consulted for non-healing wound. Pt has a wound on right heal. RD unable to send Nathaniel d/t pt's poor renal function. RD will send Nepro BID to aid in protein intake and nutritional status. Pt has a L AKA. Pt is currently in dialysis. RD will gather further information from pt at follow up. No PO intake documented. No GI symptoms documented. Last BM: 08/26. Labs reviewed. K 5.4 (high). Latest A1c = 05/25/2024. Recommend redrawing lab. Wt reviewed. Pt has a current wt of 236#. Per EMR, pthad a wt of 248# on 07/30. This would be a 4.8% wt loss within [address] to conduct NFPE at followup for further malnutrition evaluation. Med/Surg History and Clinical Diagnoses: is a 33 year old female w/ PMH significant for ESRD w/ HD MWF via left TDC h/o T2DM, ESRD on HD TTS, HTN, HLD, hx of RUE DVT, anemia, PVD, blindness, s/p L AKA, HFpEF, prior hx of infectious arthritis who presented from OSH for right shoulder pain concerningfor septic arthritis, orthopedics and ID consulted for further management. BMI: Body mass index is 36.96 kg/m??. BMI Range: Morbidly Obese Class 3 (adjusted BMI) Recent Weights/Methods 07/27/2024 1419 07/30/2024 0701 07/30/2024 1951 07/31/2024 1107 08/23/2024 1446 08/25/2024 0909 08/27/2024 1100 08/27/2024 1227 Weight: -- 104.3 kg (230 lb) 112.9 kg (248 lb 12.8 oz) -- 112.5 kg (248 lb) 112.5 kg (248 lb) 107 kg (236 lb) -- Weight Method : -- -- Bed scale -- -- Stated Bed scale -- UBW: UTO Unintentional weight change: Pt has a current wt of 236#. Per EMR, pt had a wt of 248# on 07/30. This would be a 4.8% wt loss within 1 month. PO INTAKE Current diet order: Renal Standard Nutrition recommendation: alter/change nutrition order Food Allergies: No known food allergies Last 48 hr PO INTAKE No data recorded Supplement(s) Consumed- Last 48 hours None Pain affecting intake: No Chewing/Swallowing: None GI Concerns: None Stools: Last BM (Date): 08/26/24 Skin/Wound: right foot wound Estimated Needs: KCAL: 1830 - 2135 kcals (30 - 35 kcals/kg) Protein (g): 61 - 73 g (1.0 - 1.2 g/kg) Fluid (ml): 1 ml/kcal Needs based on: Kcal/kg- (Comment) (61 g IBW) Recommended Access Route: PO Labs: Recent Labs Component Name 08/26/24 2312 08/25/24 0950 08/09/24 0945 08/07/24 0547 12/02/22 1955 08/25/22 0315 08/24/22 1404 08/24/22 0725 SODIUM - - - - - 142 143 138 POTASSIUM 5.4* 4.5 4.2 4.2 - 3.6 3.7 5.2* CHLORIDE - - - - - 107 103 110* CO2 17* 17* 24 26 - 26 30 20* GLUCOSE 104* 293* 184* 218* - 211* 145* 165* BUN 34* 27* 30* 33* - 13 9 8 CREATININE 5.04* 3.61* 6.80* 6.99* - 1.58* 1.43* 1.42* ALBUMIN - - - - - 2.0* 2.1* 1.7* CALCIUM 8.7 8.6 8.6 8.9 - 7.9* 8.2* 7.8* AST 13 10 - 10 - - - - ALT 6 8 - <5* - - - - - = values in this interval not displayed. Recent Labs Component Name 08/09/24 0945 08/07/24 0547 08/06/24 0402 PHOS 4.9 5.9* 4.7 Recent Labs Component Name 08/26/24 2312 08/25/24 0950 08/23/24 1522 HGB 10.1* 9.9* 10.1* HCT 33.2* 32.5* 33.3* No results for input(s): PREALBUMIN in the last 95856 hours. Recent Labs Component Name 05/25/24 0643 02/23/24 0737 04/27/23 0730 HGBA1C 6.2* 6.5* 6.7* No data found. MEDICATIONS FOR CURRENT ENCOUNTER: SCHEDULED MEDICATIONS: 0.9% NaCl injection 3 mL, Intracatheter, q8h amLODIPine (Norvasc) tablet 10 mg, Oral, QDAY apixaban (Eliquis) tablet 5 mg, Oral, BID carvedilol (Coreg) tablet 25 mg, Oral, BID WC gabapentin (Neurontin) capsule 300 mg, Oral, MON, WED AND FRI gadobutrol (Gadavist) injection, Intravenous, Contrast - Once renal vitamin (Dialyvite) tablet 1 tablet, Oral, QDAY sevelamer carbonate (Renvela) tablet 800 mg, Oral, TID WC vancomycin (Vancocin) 750 mg in 0.9% NaCl IV 250 mL IVPB, Intravenous, MON, WED AND FRI vancomycin (Vancocin) IV dose per pharmacy, Does not apply, DIRECTED [COMPLETED] amLODIPine (Norvasc) tablet 10 mg, Oral, Now [COMPLETED] carvedilol (Coreg) tablet 12.5 mg, Oral, Once [COMPLETED] carvedilol (Coreg) tablet 12.5 mg, Oral, Once [COMPLETED] HYDROmorphone (Dilaudid) injection 0.5 mg, Intravenous, Now [COMPLETED] HYDROmorphone (Dilaudid) injection 1 mg, Intravenous, Now [COMPLETED] lisinopril (Prinivil; Zestril) tablet 20 mg, Oral, Once [COMPLETED] losartan (Cozaar) tablet 25 mg, Oral, Now [] acetaminophen (Tylenol) tablet 1,000 mg, Oral, Now [START ON 08/28/2024] furosemide (Lasix) tablet 40 mg, Oral, TUES, THUR & SAT [START ON 08/28/2024] lisinopril (Prinivil; Zestril) tablet 40 mg, Oral, QDAY CONTINUOUS MEDICATIONS: PRN MEDICATIONS: 0.9% NaCl injection 1-10 mL, Intracatheter, PRN HYDROmorphone (Dilaudid) injection 0.5 mg, Intravenous, q4h PRN oxyCODONE (immediate release) (Roxicodone) tablet 5 mg, Oral, q4h PRN Nutrition Diagnostic Statement: Increased nutrient needs related to:: increased demands for wound healing as evidenced by:: estimated energy needs ..;estimated protein needs .. Nutrition Intervention: Meals and snacks:;Medical Food Supplements: Education needed: Wound Healing Education Provided: Prior to Discharge (08/27/24 1400) Pt still needs education Monitor per nutrition guidelines. Monitoring: GI, PO intake, WT, labs, medications Evaluation: Nutrition Goal: Intake will be improved to 75% or greater of meals/snacks Nutrition Goal Timeframe: Ongoing Nutrition Goal Progress: New goal established Ascom 1185 * Roxanna Roth PA-C - 08/27/2024 1:44 PM CDTAssociated Order(s): IP CONSULT TO INFECTIOUS DISEASES Images from the original note were not included. [facility] Infectious Diseases Consultation Patient Name: Gay Canales 1990 Room: 7718/1 Date of Admission: 08/26/2024 Date of Service: 08/27/2024 Primary Care Physician: CHERISE MARCELO PA-C Attending Physician: Harpreet Katz DO Reason for Infectious Disease Consultation Right shoulder osteomyelitis IMPRESSION Right shoulder osteomyelitis - Worsening Soft tissue gas in right axilla concerning for gas-forming infection History of MRSA bacteremia Diabetes type 2 ESRD on HD Chronic right heel ulcer History of necrotizing left foot soft tissue infection s/p left AKA PAD RECOMMENDATIONS - Continue IV vancomycin pharmacy dosed - Recommend Right shoulder MRI wwo contrast - Follow results MRI C / T / L spines wwo contrast - If there are any concerning findings of fluid collections / hematomas on patient's right shoulderMRI, these should be aspirated and sent for cultures. - Please obtain CBC w diff, CMP, ESR, CRP, vancomycin trough at least weekly while on IV antibiotics. Please call the [facility] ID pager [phone] with any questions. DISCUSSION Gay Canales is a 33 year old female with PMH of recurrent MRSA bacteremia, essential hypertension, type 2 diabetes mellitus, hyperlipidemia, ESRD on HD TTS- via THC, obesity, HFpEF, PAD, right lower extremity non-healing ischemic ulcers, right foot chronic ulcer with prior right calcaneal osteomyelitis, left foot necrotizing soft tissue infection s/p left AKA, depression, who presents to [facility] for worsening right shoulder pain Right shoulder osteomyelitis - Worsening Soft tissue gas in right axilla concerning for gas-forming infection - 08/26/2024: S/p right shoulder aspiration, predominately bloody tap - Recommend MRI right shoulder wwo contrast for further evaluation of concerning gas-forming infection - Continue IV vancomycin History of MRSA bacteremia - Blood cultures negative this admission - Previous TTE (07/28) and MATT (07/30) negative for vegetations - Continue IV vancomycin through 09/10/2024 Diabetes type 2 - A1c 6.2 in May 2024 - Treatment Per primary team ESRD on HD - No signs of tunneled line infection this admission Chronic right heel ulcer Chronic osteomyelitis right heel - No sign of infection this admission History of necrotizing left foot soft tissue infection s/p left AKA PAD CDC Screening -Previously negative for HIV and hepatitis C QTC: 452 (05/17/2024) Renal Function: Estimated Creatinine Clearance: 20.4 mL/min (A) (by C-G formula based on SCr of 5.04 mg/dL (H)). Hardware: None Thank you for for this interesting consult. We will continue to follow and monitor with you closely. Please call the Ortho ID pager [phone] with any questions. I spent >60 mins mins in the care of this patient to include chart review, coordination of care,and patient interview / examination / education independent from the attending physician. I spent an additional 10 mins in discussion with attending physician Dr. Ramirez regarding patient case. Patient seen and examined, case discussed with ID attending. JESSICA Sorensen, CRISTIAN[facility] Division of Infectious Diseases Pager: [phone], [employer] Secure Chat preferred ID Clinic ID Clinic Subjective History of Present Illness: Gay Canales is a 33 year old female with PMH of recurrent MRSA bacteremia, essential hypertension, type 2 diabetes mellitus, hyperlipidemia, ESRD on HDTTS- via THC, obesity, HFpEF, PAD, right lower extremity non-healing ischemic ulcers, right foot chronic ulcer with prior right calcaneal osteomyelitis, left foot necrotizing soft tissue infection s/p left AKA, depression, who presents to [facility] for worsening right shoulder pain. Previous Right ankle and hindfoot osteomyelitis 04/15/2023 right heel wound culture grew Streptococcus agalactiae (Group B), abundant Gram-positive cocci, Gram-positive bacilli, Gram-negative bacilli 04/28/2023 MRI right foot showed calcaneus osteomyelitis, and fifth metatarsal, with associated footcellulitis, myositis, tenosynovitis, and abscess; no surgical intervention; ID recommended empiric therapy with vancomycin, ceftriaxone, metronidazole 05/17/2024 CoNS bacteremia thought to be central line-associated BSI and PICC line-associated DVT; central line removed; step-down oral therapy to doxycycline, ciprofloxacin, metronidazole through 06/07/2023 07/28/2024 CT right foot showed chronic changes, no acute process Previous infection history: February [address] [facility] for MRSA bacteremia with left shoulder septic arthritis 02/22/2024 orthopedic surgery right shoulder aspiration; culture was no growth 02/25/2024 IR US-guided aspiration of left shoulder fluid collection; purulent fluid obtained; culture was no growth; ID recommended vancomycin with HD through 04/07/2024; unfortunately no orders were sent to dialysis center for vancomycin administration and supposedly completed course with linezolid at nursing facility. May [address] [facility] for suspected infectious left shoulder bursitis; ID treated empirically with cefepime and vancomycin for 4 weeks 07/25/2024 - 08/09/2024: Patient admitted to [facility] for MRSA bacteremia (Bcx + 07/25- 07/29). Found to have right shoulder septic arthritis, right subscapularis abscess, right humeral head osteomyelitis, concern for central line-associated BSI which was removed, central line associated acute DVT right IJ.New TDC catheter placed by IR on 08/06/2024. Patient discharged from [facility] with 6 weeks of IV vancomycin from first negative blood culture, EOT 09/10/2024. ID also planned to repeat CT left shoulder towards end of therapy to reassess persistent fluid collection. Patient presented to [facility] on 08/26/2024 for worsening right arm pain that started 1 week ago. She has also noticed a swollen lump over the right shoulder incision. She reports pain most notable with movement of the right arm. She has had some night sweats but no fevers, chills, n/v/d, rashes, itching, shortness of breath, cough. ID consulted for right shoulder osteomyelitis. Already on vancomycin. Hospital course this admission: 08/26/2024: XR right shoulder shows worsening right humeral head/ neck deformity since previous x-rays. There is likely soft tissue gas seen on axillary view concerning for gas-forming infection. Right shoulder aspirated by ortho, cell count 3700, 1mil RBCs. Pathology smear pending. 08/27/2024: MRI C/T/L spine completed, pending read. Interval History Today 08/27/2024: At time of consult, patient denies fevers, chills, nausea, vomiting, diarrhea, rashes, itching. +Night sweats. No longer having neck or back pain. +Right shoulder pain and swelling particularly with raising the shoulder. WBC 11.0, Hgb 10.1, CRP 1.5, ESR > 130, random vanc 18.3.CMP stable. Tolerating vancomycin with no concerns. Medical History Past Medical History: Diagnosis Date Essential (primary) hypertension Heart failure (HCC) Type 2 diabetes mellitus without complications (HCC) Surgical History Past Surgical History: Procedure Laterality Date DEBRIDEMENT Right 07/27/2024 Right; RIGHT SHOULDER INCISION AND DEBRIDEMENT LEG AMPUTATION ABOVE KNEE Left 12/05/2022 Left; AMPUTATION ABOVE LEFT KNEE Leg Amputation, Below Knee Left 12/02/2022 Left; LEFT ANKLE DISARTICULATION LEVEL 2 @ 2220 Social History Smoking: Former, quit Alcohol: denies history Illicit drugs/IV drug use: Denies history Marital status: Single Children: None Living situation: With sister Pets: None Travel Hx: no international travel Sick contacts: denies recent contacts Incarceration Hx: denies history HIV status: Negative 02/24/2024 Hepatitis Status: Negative 05/31/2024 Prosthetic / Implant History: None Immunizations: Immunization History Administered Date(s) Administered DTP, HISTORIC VACCINE 1992, 02/16/1993, 06/01/1993, 05/08/1994 HEP B VACCINE, PED/ADOL 06/01/1993, 07/27/1993, 03/06/1994 Hib,HISTORIC VACCINE 1992, 02/16/1993, 06/01/1993, 01/04/1994 Human Papilloma Virus Bivalent Vaccine 04/25/2008, 06/24/2008 MENINGOCOCCAL, HISTORIC VACCINE 04/25/2008 MMR, HISTORIC VACCINE 01/04/1994 POLIO OPV 1992, 02/16/1993, 06/01/1993, 03/06/1994 TDAP (7yrs+) 12/02/2022 TDAP, HISTORIC VACCINE 08/14/2006 VARICELLA 08/13/2007, 04/25/2008 Family History Family History Problem Relation Name Age of Onset Diabetes - Type 2 Mother Hypertension Mother Diabetes - Type 2 Father Hypertension Father Diabetes - Type 2 Paternal Grandmother Hypertension Paternal Grandmother Review of Systems Review of Systems Constitutional: Negative for chills, fever and malaise/fatigue. Night sweats HENT: Negative. Eyes: Blind Respiratory: Negative. Cardiovascular: Negative. Gastrointestinal: Negative. Genitourinary: Negative. Musculoskeletal: Right shoulder pain and swelling Skin: Negative. Neurological: Negative. Endo/Heme/Allergies: Negative. Psychiatric/Behavioral: Negative. Allergies No Known Allergies Antimicrobial History Current Antibiotics IV vancomycin (07/26 - present) Prior Antibiotics At [facility] Prior Antibiotics at OSH Home Medications Prior to Admission medications Medication Sig Start Date End Date Taking? Authorizing Provider acetaminophen (Tylenol) 500 MG tablet Take 1 (one) tablet by mouth every 4 hours Maximum allowable Acetaminophen amount = 4 Grams (4000 mg) / 24 hours. Patient not taking: Reported on 08/23/2024 03/02/24 Martine Morrissey MD Alcohol Swabs (Alcohol Prep) 70 % USE ONE SWAB TO CLEAN SKIN FOUR TIMES DAILY BEFORE TESTING Patient not taking: Reported on 08/23/2024 12/12/22 Amanda Georges MD amLODIPine (Norvasc) 10 MG tablet Take 1 (one) tablet by mouth once daily 08/24/24 Yes Kash Ha MD apixaban (Eliquis) 5 MG tablet Take 2 (two) tablets by mouth 2 times daily for 4 days, THEN 1 (one)tablet 2 times daily for 90 days. Patient not taking: Reported on 08/23/2024 08/09/24 11/11/24 Harpreet Katz DO bisacodyl (Dulcolax) 10 MG suppository Insert 1 (one) suppository into the rectum once daily as needed for Constipation Patient not taking: Reported on 08/23/2024 02/28/24 Geronimo Burleson MD blood glucose (OneTouch Verio) test strip USE ONE STRIP TO TEST BLOOD SUGAR FOUR TIMES DAILY Patient not taking: Reported on 08/23/2024 12/12/22 Amanda Georges MD Blood Glucose Monitoring Suppl (OneTouch Verio Reflect) w/Device KIT Use 1 kit 4 times daily USE METER TO CHECK BLOOD GLUCOSE FOUR TIMES DAILY Reasons: CALL [facility] WHEN DELIVERING X4364 Patient not taking: Reported on 08/27/2024 12/12/22 Amanda Georges MD carvedilol (Coreg) 12.5 MG tablet Take 1 (one) tablet by mouth 2 times daily with morning and evening meal 08/24/24 Yes Kash Ha MD FeroSul 325 (65 Fe) MG tablet Take 1 (one) tablet by mouth daily with breakfast 08/08/22 Yes Rebel Garcia MD furosemide (Lasix) 40 MG tablet Take 1 (one) tablet by mouth every Friday, Friday & Friday05/23/23 Yes Willard Estrella MD gabapentin (Neurontin) 300 MG capsule Take 1 (one) capsule by mouth every Friday, Friday & Friday08/09/24 Yes Harpreet Katz DO Gauze Pads & Dressings (Gauze Dressing) 4 X4 PADS Use 1 Pad every 2 days Apply to right shoulder, change dressing every 48 hours, sooner if needed. 08/09/24 Yes Harpreet Katz DO Lancets (ONETOUCH DELICA PLUS 33G EXTRA FINE LANCET) USE ONE LANCET TO PRICK FINGER FOUR TIMES DAILY FOR BLOOD GLUCOSE TESTING Patient not taking: Reported on 08/23/2024 12/12/22 Amanda Georges MD lisinopril (Prinivil; Zestril) 20 MG tablet Take 1 (one) tablet by mouth once daily 08/24/24 Yes Kash Ha MD melatonin 3 MG tablet Take 1 (one) tablet by mouth nightly as needed for Insomnia Patient not taking: Reported on 08/23/2024 05/09/23 Joe Vargas MD oxyCODONE, immediate release, (Roxicodone) 10 MG tablet Take 1 (one) tablet by mouth every 4 hours as needed for Pain Patient not taking: Reported on 08/27/2024 08/09/24 Harpreet Katz DO renal vitamin (Dialyvite) tablet Take 1 (one) tablet by mouth once daily 02/28/24 Yes Geronimo Burleson MD senna (Senokot) 8.6 MG tablet Take 1 (one) tablet by mouth once daily Patient not taking: Reported on 08/23/2024 02/28/24 Geronimo Burleson MD sevelamer carbonate (Renvela) 800 MG Take 1 (one) tablet by mouth 3 times daily with meals 02/28/24 Yes Geronimo Burleson MD vancomycin 750 mg in 0.9% NaCl IV 0.9 % 250 mL 750 (seven hundred fifty) mg by Intravenous route every Friday, , & Friday for 35 days 08/06/24 09/10/24 Yes Rob Cruz MD Objective Vitals BP 136/80 Comment (Patient Position): semi Pulse 81 Temp 98.2 ??F (36.8 ??C) (Oral) Resp 16 Wt 107 kg (236 lb) SpO2 95% Temp (24hrs), Av.9 ??F (36.6 ??C), Min:97.3 ??F (36.3 ??C), Max:98.2 ??F (36.8 ??C) Physical Exam PHYSICAL EXAM General: Alert, no distress, not toxic appearing Head: Normocephalic, atraumatic EENT: PERRLA, normal conjunctiva, anicteric sclerae. Nose Normal. No thrush. Dentition Fair. Neck: Supple, No cervical lymphadenopathy. No JVD. Chest wall: No tenderness or deformity. +Left Tunneled HD line present Lungs: Clear to auscultation bilaterally, no wheezes, rales, rhonchi. Heart: RRR, S1, S2 normal, no murmur, gallops, or rubs. Abdomen: Soft, non-distended, non-tender, no organomegaly or masses. +BS Extremities: Right shoulder: Incision to anterior right shoulder, there is a large / semi-solid well demarcated mass just medial to the incision site, there is a small area of fluctuance / blisteringappearance to the lateral edge of the incision. There is some tenderness in the right axilla. Skin: No rashes. Neurologic: Alert and oriented x 3, moving all extremities Psychiatry: Appropriate mood/affect Lines: All lines without signs of infection Peripheral IV Anterior;Left Forearm (Active) Placement Date/Time: 08/26/241803 Size (Gauge): 20 G Orientation: Anterior;Left Location: Forearm Number of days: 0 Midline 08/03/24 Left Brachial Vein Single Lumen (Active) Placement Date: 08/03/24 Placed by: Shelby SAMUEL Arm: Left Vein used: Brachial Vein Lumens: Single Lumen Pre-insertion upper extremity assessment: WNL - Skin intact Site(s) prepped with: Chloraprep IV Catheter Size: 4 Swiss Reason for placement... Number of days: 24 Hemodialysis Tunneled Catheter Subclavian The Original SoupMan 15.5 (Active) Placement Date/Time: 08/06/24 1158 Placed by: Fredi Harmon MD Dialysis Tunneled Catheter Location: Subclavian Hemodialysis Cath Orientation: Left Assistant Reading Teacher/Model : The Original SoupMan Model: Duraflow 2 Reference Number: [id number] Lot Number: [id number]... Number of days: 21 08/26/2024: Right shoulder Lab Review CBC: Recent Labs Component Name 08/26/24231108/25/24 0950 08/23/24 1522 WBC 11.0* 16.2* 12.5* RBC 3.48* 3.33* 3.48* HGB 10.1* 9.9* 10.1* HCT 33.2* 32.5* 33.3* MCV 95.4 97.6 95.7 BMP: Recent Labs Component Name 08/26/24231108/25/24 0950 08/09/24 0945 08/07/24 0547 NA 140 134* 139 138 CL 111* 108* 100 98 CO2 17* 17* 24 26 BUN 34* 27* 30* 33* CREATININE 5.04* 3.61* 6.80* 6.99* ALB 2.5* 2.6* 2.1* 2.1* PROT 8.2 8.4* - 7.9 estimated creatinine clearance is 20.4 mL/min (A) (by C-G formula based on SCr of 5.04 mg/dL (H)). LFTs: Recent Labs Component Name 08/26/24231108/25/24 0950 08/07/24 0547 12/02/22 1955 08/25/22 0315 08/24/22 1404 08/24/22 0725 ALKPHOS 215* 216* 106 - - - - ALT 6 8 <5* - - - - AST 13 10 10 - - - - ALBUMIN - - - - 2.0* 2.1* 1.7* LIPASE - 57 - - - - - - = values in this interval not displayed. Coagulation: Recent Labs Component Name 08/07/24 0547 08/06/24 0402 08/05/24 0431 08/04/24 0355 08/04/24 0254 08/03/24 1107 08/03/24 0538 08/02/24 1753 08/02/24 0804 PT - - - - 14.6 - 14.5 - 13.3 INR - - - - 1.2 - 1.2 - 1.0 PTT 35.0 99.3* 97.3* - 169.8* - 150.1* - 43.2* - = values in this interval not displayed. ESR: Recent Labs Component Name 08/25/24 1218 08/01/24 1121 07/25/24 2316 ESR >130* 128* 120* CRP: Recent Labs Component Name 08/25/24 0950 08/23/24 1516 08/01/24 1121 CRP 1.5* 18.7* 10.1* CK: No results for input(s): CK in the last 27442 hours. Microbiology, Imaging and other diagnostic tests MICROBIOLOGY: Blood culture: 08/25: 2/2 No growth 24 hours Right Shoulder Synovial fluid: 08/26/2024: Appearance bloody, 3700 Nucleated cells, 1mil RBCs. Pathology smear pending Other Serologies: 08/25/2024: Covid-12, FluA/B - not detected HISTOPATHOLOGY: None at this admission IMAGING & PROCEDURES: Pertinent images independently reviewed; report in chart MRI RIGHT SHOULDER WWO CONTRAST - ordered MRI CERVICAL, THORACIC, LUMBAR SPINE WWO CONTRAST 08/27/2024 - Pending read XR RIGHT SHOULDER 08/26/2024 FINDINGS/IMPRESSION: Deformity at the right humeral head/neck [...] Possible airspace disease within the bilateral lungs. Associated attestation - Yovany Ramirez MD - 08/29/2024 7:26 PM CDT ..I personally saw, examined, evaluated the patient. I reviewed the history, ROS, medications, data, laboratory data, diagnostic studies that are mentioned and documented in this note. I discussed the case, management and formulated the plan with the advanced practitioner. Patient is 33 year old female well lnown to the infectious disease service PMH of recurrent MRSA bacteremia, essential hypertension, type 2 diabetes mellitus, hyperlipidemia,ESRD on HD TTS- via THC, obesity, HFpEF, PAD, right lower extremity non-healing ischemic ulcers, right foot chronic ulcer with prior right calcaneal osteomyelitis, left foot necrotizing soft tissue infection s/p left AKA, depression, admitted for for worsening right shoulder pain. Patient was on IVVancomycin at dialysis prior to admission Right shoulder osteomyelitis - Worsening Soft tissue gas in right axilla concerning for gas-forming infection History of MRSA bacteremia Patient was on IV Vancomycin at dialysis prior to admission for MRSA bacteremia with EOT 09/10/2024 -08/26/2024: S/p right shoulder aspiration, predominantly bloody tap - Recommend MRI right shoulder wwo contrast for further evaluation of possible abscess -I note gas on CT scan, but clinically does not appear to be a necrotizing infection and more concerning for possible abscess -If aspirate culture is negative, no indication to broaden antibiotic coverage As patient is hemodynamically stable and shoulder aspirate seems bloody; continue IV vancomycin Yovany Jay Ramirez MD MPH CWSP The total time spent today was 10 minutes performing chart prep, reviewing data and visit with the patient which was independent of the nurse practitioner. * Will Burt MD - 08/27/2024 8:29 AM CDTAssociated Order(s): IP CONSULT TO NEPHROLOGY [facility] Department of Nephrology History & Physical Date of Admission: 08/26/2024 Length of Stay: 0 Date of Service: 08/27/2024 Consulting Service: [facility] Reason for Consult: ESRD w/ HD HISTORY: Gay Canales is a 33 year old female w/ PMH significant for ESRD w/ HD MWF via left TDC h/o T2DM,ESRD on HD TTS, HTN, HLD, hx of RUE DVT, anemia, PVD, blindness, s/p L AKA, HFpEF, prior hx of infectious arthritis who presented from OSH for right shoulder pain concerning for septic arthritis, orthopedics and ID consulted for further management. Nephrology consulted for ESRD and for maintenance hemodialysis. She denies any complains of shoulder pain, CP/SOB, N/V/D, abdo pain, any fever or chills or any other complains this am. Lying in bed comfortably. Afebrile, HDS, VSS. Her labs showed K of 5.4, bicarb of 17. Saturating well on RA. Orthopedics consulted and no any intervention per them. I D consulted for abx management and pending final recs. Currently on Vanc for MRSA bacteremia from past and BC from 08/25 pending. Cause of ESRD: most likely HTN and DM Urine: Yes Access: L-IJ [facility] Dialysis Center: [facility] Dialysis Days: MWF Dialysis Duration: 3 Hours 0 Minutes Last Dialysis: 08/25/2024 Urban Renew[employer] Manager: Dr. Millan Review of Systems: Review of Systems Constitutional: Negative. HENT: Negative. Eyes: Negative. Respiratory: Negative. Cardiovascular: Negative. Gastrointestinal: Negative. Genitourinary: Negative. Musculoskeletal: Negative. Skin: Negative. Neurological: Negative. Endo/Heme/Allergies: Negative. Psychiatric/Behavioral: Negative. Past Medical History: Diagnosis Date Essential (primary) hypertension Heart failure (HCC) Type 2 diabetes mellitus without complications (HCC) Past Surgical History: Procedure Laterality Date DEBRIDEMENT Right 07/27/2024 Right; RIGHT SHOULDER INCISION AND DEBRIDEMENT LEG AMPUTATION ABOVE KNEE Left 12/05/2022 Left; AMPUTATION ABOVE LEFT KNEE Leg Amputation, Below Knee Left 12/02/2022 Left; LEFT ANKLE DISARTICULATION LEVEL 2 @ 2220 Family History Problem Relation Name Age of Onset Diabetes - Type 2 Mother Hypertension Mother Diabetes - Type 2 Father Hypertension Father Diabetes - Type 2 Paternal Grandmother Hypertension Paternal Grandmother Social History: Social History Socioeconomic History Marital status: Single Spouse name: Not on file Number of children: Not on file Years of education: Not on file Highest education level: Not on file Occupational History Not on file Tobacco Use Smoking status: Former Types: Cigarettes Start date: 2010 Smokeless tobacco: Never Tobacco comments: Quit 4-5 months after starting Vaping Use Vaping status: Never Used Substance and Sexual Activity Alcohol use: Not Currently Comment: Occassionally Drug use: Not Currently Types: Marijuana Comment: At age 20 for 4-5 months Sexual activity: Not Currently Other Topics Concern Not on file Social History Narrative Not on file Social Determinants of Health Financial Resource Strain: Low Risk (07/26/2024) Overall Financial Resource Strain (CARDIA) Difficulty of Paying Living Expenses: Not hard at all Food Insecurity: No Food Insecurity (07/26/2024) Hunger Vital Sign Worried About Running Out of Food in the Last Year: Never true Ran Out of Food in the Last Year: Never true Transportation Needs: No Transportation Needs (07/26/2024) PRAPARE - Transportation Lack of Transportation (Medical): No Lack of Transportation (Non-Medical): No Stress: No Stress Concern Present (07/26/2024) [employer] [place] [employer] - Occupational Stress Questionnaire Feeling of Stress : Not at all Housing Stability: Low Risk (07/26/2024) Housing Stability Vital Sign Unable to Pay for Housing in the Last Year: No Number of Places Lived in the Last Year: 2 Unstable Housing in the Last Year: No Recent Concern: Housing Stability - High Risk (05/23/2024) Housing Stability Vital Sign Unable to Pay for Housing in the Last Year: No Number of Places Lived in the Last Year: 7 Unstable Housing in the Last Year: No Allergies: No Known Allergies Home Medications: No current facility-administered medications on file prior to encounter. Current Outpatient Medications on File Prior to Encounter Medication Sig Dispense Refill acetaminophen (Tylenol) 500 MG tablet Take 1 (one) tablet by mouth every 4 hours Maximum allowable Acetaminophen amount = 4 Grams (4000 mg) / 24 hours. (Patient not taking: Reported on 08/23/2024) Alcohol Swabs (Alcohol Prep) 70 % USE ONE SWAB TO CLEAN SKIN FOUR TIMES DAILY BEFORE TESTING (Patient not taking: Reported on 08/23/2024) 100 Each PRN amLODIPine (Norvasc) 10 MG tablet Take 1 (one) tablet by mouth once daily 30 tablet 0 apixaban (Eliquis) 5 MG tablet Take 2 (two) tablets by mouth 2 times daily for 4 days, THEN 1 (one)tablet 2 times daily for 90 days. (Patient not taking: Reported on 08/23/2024) 196 tablet 0 bisacodyl (Dulcolax) 10 MG suppository Insert 1 (one) suppository into the rectum once daily as needed for Constipation (Patient not taking: Reported on 08/23/2024) blood glucose (ARKeXuch Verio) test strip USE ONE STRIP TO TEST BLOOD SUGAR FOUR TIMES DAILY (Patient not taking: Reported on 08/23/2024) 100 strip PRN Blood Glucose Monitoring Suppl (Janalakshmi Verio Reflect) w/Device KIT Use 1 kit 4 times daily USE METER TO CHECK BLOOD GLUCOSE FOUR TIMES DAILY Reasons: CALL [facility] WHEN DELIVERING [id number] 1 kit 0 carvedilol (Coreg) 12.5 MG tablet Take 1 (one) tablet by mouth 2 times daily with morning and evening meal 60 tablet 0 FeroSul 325 (65 Fe) MG tablet Take 1 (one) tablet by mouth daily with breakfast (Patient not taking: Reported on 08/23/2024) furosemide (Lasix) 40 MG tablet Take 1 (one) tablet by mouth every Friday, Friday & Friday (Patient not taking: Reported on 08/23/2024) 0 gabapentin (Neurontin) 300 MG capsule Take 1 (one) capsule by mouth every Friday, Friday & Friday 30 capsule 0 Gauze Pads & Dressings (Gauze Dressing) 4 X4 PADS Use 1 Pad every 2 days Apply to right shoulder, change dressing every 48 hours, sooner if needed. (Patient not taking: Reported on 08/23/2024) 24 Each 1 Lancets (TradyoTOUCH DELICA PLUS 33G EXTRA FINE LANCET) USE ONE LANCET TO PRICK FINGER FOUR TIMES DAILY FOR BLOOD GLUCOSE TESTING (Patient not taking: Reported on 08/23/2024) 100 Each PRN lisinopril (Prinivil; Zestril) 20 MG tablet Take 1 (one) tablet by mouth once daily 30 tablet 0 melatonin 3 MG tablet Take 1 (one) tablet by mouth nightly as needed for Insomnia (Patient not taking: Reported on 08/23/2024) oxyCODONE, immediate release, (Roxicodone) 10 MG tablet Take 1 (one) tablet by mouth every 4 hours as needed for Pain 12 tablet 0 renal vitamin (Dialyvite) tablet Take 1 (one) tablet by mouth once daily (Patient not taking: Reported on 08/23/2024) senna (Senokot) 8.6 MG tablet Take 1 (one) tablet by mouth once daily (Patient not taking: Reportedon 08/23/2024) sevelamer carbonate (Renvela) 800 MG Take 1 (one) tablet by mouth 3 times daily with meals (Patientnot taking: Reported on 08/23/2024) vancomycin 750 mg in 0.9% NaCl IV 0.9 % 250 mL 750 (seven hundred fifty) mg by Intravenous route every Friday, , & Friday for 35 days (Patient not taking: Reported on 08/23/2024) Hospital Medications: 0.9% NaCl 3 mL Intracatheter q8h amLODIPine 10 mg Oral QDAY carvedilol 12.5 mg Oral BID WC furosemide 40 mg Oral FRI, FRI AND FRI gabapentin 300 mg Oral FRI, FRI AND FRI gadobutrol Intravenous Contrast - Once lisinopril 20 mg Oral QDAY renal vitamin 1 tablet Oral QDAY sevelamer carbonate 800 mg Oral TID WC vancomycin (VANCOCIN) IV dose per pharmacy Does not apply DIRECTED PRN Meds: SALINE LOCK, INSERT AND MAINTAIN AND 0.9% NaCl AND 0.9% NaCl oxyCODONE (immediate release) OBJECTIVE: Vitals: 08/27/24 0245 08/27/24 0300 08/27/24 0400 08/27/24 0530 BP: 136/82 125/81 154/80 121/69 Pulse: 88 86 88 Resp: Temp: SpO2: 95% 93% 96% 92% Estimated body mass index is 36.96 kg/m?? as calculated from the following: Height as of an earlier encounter on 08/26/24: 1.702 m (5' 7 ). Weight as of an earlier encounter on 08/26/24: 107 kg (236 lb). Intake/Output Summary (Last 24 hours) at 08/27/2024 0830 Last data filed at 08/27/2024 0353 Gross per 24 hour Intake -- Output 600 ml Net -600 ml Physical Exam: Physical Exam Constitutional: Appearance: Normal appearance. She is normal weight. HENT: Head: Normocephalic and atraumatic. Cardiovascular: Rate and Rhythm: Normal rate and regular rhythm. Pulses: Normal pulses. Heart sounds: Normal heart sounds. Pulmonary: Effort: Pulmonary effort is normal. Breath sounds: Normal breath sounds. Abdominal: General: Abdomen is flat. Bowel sounds are normal. Palpations: Abdomen is soft. Musculoskeletal: General: Normal range of motion. Cervical back: Normal range of motion and neck supple. Skin: General: Skin is warm. Neurological: General: No focal deficit present. Mental Status: She is alert and oriented to person, place, and time. Mental status is at baseline. Psychiatric: Mood and Affect: Mood normal. Behavior: Behavior normal. Thought Content: Thought content normal. Access: Left [facility] LABS: CBC: Recent Labs Component Name 08/26/242 08/25/24 0950 08/23/24 1522 WBC 11.0* 16.2* 12.5* HGB 10.1* 9.9* 10.1* HCT 33.2* 32.5* 33.3* MCV 95.4 97.6 95.7 BMP: Recent Labs Component Name 08/26/242 08/25/24 0950 08/09/24 0945 NA 140 134* 139 CL 111* 108* 100 CO2 17* 17* 24 BUN 34* 27* 30* CREATININE 5.04* 3.61* 6.80* Recent Labs Component Name 08/26/24231108/25/24 0950 08/09/24 0945 08/07/24 0547 08/06/24 0402 CALCIUM 8.7 8.6 8.6 8.9 8.7 PHOS - - 4.9 5.9* 4.7 LFT: Recent Labs Component Name 08/26/24231108/25/24 0950 08/09/24 0945 08/07/24 0547 PROT 8.2 8.4* - 7.9 ALB 2.5* 2.6* 2.1* 2.1* ALKPHOS 215* 216* - 106 AST 13 10 - 10 ALT 6 8 - <5* TBILI 0.2 0.3 - 0.2 Recent Labs Component Name 08/25/24 0950 LIPASE 57 No results for input(s): TSH in the last 89293 hours. Coagulation: Recent Labs Component Name 08/04/24 0254 08/03/24 0538 08/02/24 0804 PT 14.6 14.5 13.3 INR 1.2 1.2 1.0 Cardiac markers: Recent Labs Component Name 04/27/23 0729 12/02/22 1955 CKTOTAL 1,624* - TROPONINI - 0.023 ABG: Recent Labs Component Name 08/05/24 2032 [id number] 27.2 IMAGING: No results found. ASSESSMENT: Gay Canales is a 33 year old female w/ PMH significant for h/o T2DM, ESRD on HD TTS, HTN, HLD, hx of RUE DVT, anemia, PVD, blindness, s/p L AKA, HFpEF, prior hx of infectious arthritis who presented from OSH for right shoulder pain concerning for septic arthritis, orthopedics and ID consulted for further management. Nephrology consulted for ESRD and for maintenance hemodialysis. PLAN: # ESRD w/ HD MWF - Access: L-IJ Permcath - Electrolytes: K - 5.4 - Acid Base: CO2 - 17 - Volume Status: Euvolemic - strict intake and output - renally dose medications - plan for hemodialysis today - Resume renal vitamin - Renal diet # Hypertension - BP today is 149/94 - currently on amlodipine 10 mg once, Coreg 12.5 mg bid nd lasix 40 mg on MWF, lisinopril - Consider increasing her coreg to 25 mg bid, and lisinopril to 40 mg once daily for higher BP # Anemia - Hgb - 10.1 - may be secondary to anemia of chronic disease secondary to ESRD - obtain Iron Panel [Iron, Ferritin, Transferrin] - transfuse pRBCs for Hgb<7 # Secondary Hyperparathyroidism - Ca - 8.7 - Albumin - 2.5 - PO4 - 4.9 - Continue sevelamer 800 mg tid po - Send repeat PTH and Vitamin D with next set of labs tomorrow #MRSA bacteremia - Currently on Vanc - BC pending - ID and Orthopedics consulted - Abx per ID and primary tyeam Patient will be seen and discussed with attending physician, Dr. Cuellar. Will Burt MD Nephrology Resident Associated attestation - Octavio Cuellar MD - 08/27/2024 4:50 PM CDT The patient was seen and examined with the house staff. Please see further details in the house staff note. I have reviewed the house staff note and agree with its contents and plan of care in addition to what I note below: 33 YO patient with ESRD , MWF , left IJ TDC , recent bacteremia , still on out patient Vancomycin ,C/O of Rt shoulder pain with concern for septic arthritis . Will proceed with hemodialysis today . * Adolfo Browne MD - 08/26/2024 6:21 PM CDTAssociated Order(s): IP CONSULT TO ORTHOPEDICS Images from the original note were not included. [facility] Orthopedic Trauma Surgery Consultation Note Gay Canales, 33 year old, female : 1990 CSN: [id number] Admitted: 08/26/2024 4:27 PM Consulting Service: ED Consulting Physician: Dr. Morris Primary Care Physician: CHERISE MARCELO PA-C Time at Bedside: 18:30 Today's Date/Time: 08/27/2024 4:15 AM Chief Complaint Chief Complaint Patient presents with Shoulder Pain Pt bibEMS from OSH with c/o R shoulder pain and possible septic joint. Pt arrives with NS bolus andVancomycin infusing. A&Ox4, VSS. History Gay Canales is a 33 year old female who presented to [facility] on 08/26/2024 from an outside hospitaldue to concerns of right septic arthritis. Patient was seen at [facility] as a CT of the right shoulder was performed redemonstrating chronic osteomyelitis and anterior fluid collection. Patient is known to the orthopedic service as she was washed out by Dr. Chapman on 07/27 for confirmed right septic arthritis. Patient states she has been having right arm pain for 1 week. Patient states the pain has been persistent and has not increased in intensity. Upon my interview patient is resting in bed comfortably. Patient states that pain is located anterior shoulder. Patient is able to actively range her arm though with some discomfort. Patient's incision is clean dry and intact with no signs of infection or drainage. Patient denies any fevers or chills but states that every for the last weekshe has been waking up sweating during the night. Joint aspiration performed at bed which resulted in less than 5cm of bloody fluid with a cell cound of 3,700. Inflammatory marker obtained, CRP 1.5 down trending from 18.7, and current ESR >130. Vitals Blood pressure 125/81, pulse 86, temperature 97.3 ??F (36.3 ??C), temperature source Temporal, resp. rate 16, last menstrual period 07/12/2024, SpO2 93%, not currently . Labs Lab results smartLinks are not currently available Lab results smartLinks are not currently available PMHx Past Medical History: Diagnosis Date Essential (primary) hypertension Heart failure (HCC) Type 2 diabetes mellitus without complications (HCC) PSHx Past Surgical History: Procedure Laterality Date DEBRIDEMENT Right 07/27/2024 Right; RIGHT SHOULDER INCISION AND DEBRIDEMENT LEG AMPUTATION ABOVE KNEE Left 12/05/2022 Left; AMPUTATION ABOVE LEFT KNEE Leg Amputation, Below Knee Left 12/02/2022 Left; LEFT ANKLE DISARTICULATION LEVEL 2 @ 2220 Social Hx Social History Tobacco Use Smoking status: Former Types: Cigarettes Start date: 2010 Smokeless tobacco: Never Tobacco comments: Quit 4-5 months after starting Substance Use Topics Alcohol use: Not Currently Comment: Occassionally Family Hx family history includes Diabetes - Type 2 in her father, mother, and paternal grandmother; Hypertension in her father, mother, and paternal grandmother. Allergies No Known Allergies Medications Current Facility-Administered Medications Medication 0.9% NaCl injection 3 mL And 0.9% NaCl injection 1-10 mL acetaminophen (Tylenol) tablet 1,000 mg amLODIPine (Norvasc) tablet 10 mg carvedilol (Coreg) tablet 12.5 mg furosemide (Lasix) tablet 40 mg gabapentin (Neurontin) capsule 300 mg gadobutrol (Gadavist) injection lisinopril (Prinivil; Zestril) tablet 20 mg oxyCODONE (immediate release) (Roxicodone) tablet 5 mg renal vitamin (Dialyvite) tablet 1 tablet sevelamer carbonate (Renvela) tablet 800 mg Current Outpatient Medications Medication acetaminophen (Tylenol) 500 MG tablet Alcohol Swabs (Alcohol Prep) 70 % amLODIPine (Norvasc) 10 MG tablet apixaban (Eliquis) 5 MG tablet bisacodyl (Dulcolax) 10 MG suppository blood glucose (OneTouch Verio) test strip Blood Glucose Monitoring Suppl (OneTouch Verio Reflect) w/Device KIT carvedilol (Coreg) 12.5 MG tablet FeroSul 325 (65 Fe) MG tablet furosemide (Lasix) 40 MG tablet gabapentin (Neurontin) 300 MG capsule Gauze Pads & Dressings (Gauze Dressing) 4 X4 PADS Lancets (ONETOUCH DELICA PLUS 33G EXTRA FINE LANCET) lisinopril (Prinivil; Zestril) 20 MG tablet melatonin 3 MG tablet oxyCODONE, immediate release, (Roxicodone) 10 MG tablet renal vitamin (Dialyvite) tablet senna (Senokot) 8.6 MG tablet sevelamer carbonate (Renvela) 800 MG vancomycin 750 mg in 0.9% NaCl IV 0.9 % 250 mL Review of Systems A 12 point review of systems was performed and was negative except for what was mentioned in the HPI Physical Exam General: Awake, cooperative, in no acute distress. CV: Regular rate. Pulm: No audible wheezing, no use of accessory muscles Abd: soft, nontender, nondistended Musculoskeletal: RUE -Inspection: skin intact, compartments soft/compressible -Tenderness: nontender to palpation of clavicle, shoulder, elbow, wrist, fingers -ROM: Mild tenderness to passive range of motion of the shoulder joint. Patient able to actively range hershoulder per -Motor: Fires EPL/FPL/ EDC/FDP/IO, Flexes/extends wrist -Sensation: in tact to light touch in Axillary/Median/Ulnar/Radial distributions -Vascular: 2+ radial pulse with fingers warm and well perfused Imaging -Right shoulder x-ray demonstrates erosive changes of the humeral head - Please see separate radiographic report for formal read by Radiology Procedure Note -Right shoulder aspiration Assessment/Plan: 33 year old female with with acute on chronic shoulder pain. Right shoulder aspiration demonstrateda cell count of 3700. At this time there is no concern of acute septic arthritis of the left shoulder joint. Patient does have chronic osteomyelitis which is known. At this time there is no acute intervention that would resolve the patient's pain. Patient osteomyelitis destruction to the glenohumeral interval will require a extensive staged procedure. Unfortunately patient multiple comorbidities puts her at risk of not being able to complete this extensive reconstruction and she is an unfit candidate for that operative intervention. Ortho trauma will continue to follow the patient peripherally. We will offer the patient follow-up for a formal discussion for reconstruction of the right shoulder regarding risk, benefits, and residential outcomes. At this time Ortho trauma will sign off, but will be available for for any possible acute surgical intervention that will optimize the patient's medical outcome. Weight bearing: WBAT RUE PT/OT when able Will discuss this patient with consulting analyst physician Dr. Mercedes and update plan accordingly. Please page Ortho Trauma with any questions or concerns. Adolfo Browne MD 08/27/2024 4:15 AM Orthopaedic Surgery [facility] Medicine, Level I-Orthopaedic Surgery [address] [place] [address] Visit our website at [email or web address] for information about our practice and an interactive health encyclopedia. Please visit [email or web address] to access your health record, ask questions, request medication refills, and request appointments for non-urgent needs after you have configured your [employer] account. If you do not currently have access, please contact one of our staff members or call [phone]. For after hour emergencies, please call and press 0 for the caltrans equipment operator in order to page the orthopedic resident consulting analyst. Associated attestation - Anabel Mercedes MD - 08/27/2024 11:07 AM CDT I have seen and examined the patient with the resident and I agree with the findings and plan of care as documented by the resident/PA. Date of Service: 08/27/24 Anabel Mercedes MD documented in this encounter OR Notes * Brief Op Note - Lonnie Terrell - 08/30/2024 3:00 PM CDT Vascular & Interventional Radiology Brief Post-Procedure Note Patient: Gay Canales Attending: Shayla Nugent MD Assistant Corporate Secretary: Chris Moya MD and Lonnie Terrell MS3 Diagnosis/Indication: Intramuscular abscess of right shoulder Procedure: Ultrasound-guided placement of a 10 Swiss Dimas Delcid pigtail drainage catheter. Findings: Pre-procedure ultrasound showed multiple foci of air and well- circumscribed thick walled large hyperechoic abscess. Attempts were made to aspirate fluid from the abscess using a 5 Swiss catheter, however, due to the viscosity of the fluid, it was unsuccessful. Subsequently, a 10 Swiss pigtail catheter was successfully placed. 15 mL of thick purulent fluid drained during the procedure. Anesthesia: Local with 1% Lidocaine Additional medications given: None Estimated blood loss: Minimal Specimens: An appropriate amount of fluid was sent for ordered studies. Immediate complications: None Follow-up: Keep catheter open for external drainage, and record daily catheter output. Flush the catheter with 10 mL saline Q 8 hrs. Keep dressing clean and dry at all times. Change dressing Q 24-48 hours. Change dressing earlier ifit becomes wet or soiled. If the output falls below 5 mL/day for three consecutive days, please call IR to schedule the patient for a tube check to evaluate for possible repositioning/removal. Contact IR if the catheter stops draining, if there is pericatheter leakage, or if the catheter is inadvertently pulled out. Time out and final pre-procedure assessment completed immediately prior to start of procedure. Intra-procedure orders and medication record reviewed. Medications and doses administered by staff as verbally ordered. See detailed procedure note with images in PACS. Associated attestation - Shayla Nugent MD - 08/30/2024 4:38 PM CDT Attending Physician Attestation Date of Service: 08/30/2024 For this patient encounter, I have reviewed the resident's note. I agree with the brief op note. SHAYLA NUGENT MD Farm Management Supervisor Vascular & Interventional Radiology 08/30/2024 4:37 PM documented in this encounter ED Notes * Levi Cooper MD - 08/26/2024 10:00 PM CDT ASSUMED CARE NOTE Patient signed out to me by Dr. Morris at 10:16 PM. Gay Canales is a 33 year old female is being evaluated for right shoulder possible septic arthritis. At this time the patient's condition is Stable. Pending results of the shoulder Pap.. Vitals: 08/26/24 1905 08/26/24 1953 08/26/24 2141 08/26/24 2200 BP: 149/92 160/96 (!) 204/116 (!) 196/108 Pulse: 86 84 91 90 Resp: 18 14 16 Temp: 98 ??F (36.7 ??C) 97.3 ??F (36.3 ??C) SpO2: 95% 97% 97% 99% ED Course 0 - patient was signed out to me from the previous ER attending 2340 -patient was admitted and taken over by medicine Summary of Stay: Patient is a 33-year-old female with a extensive past medical history including septic arthritis from her end-stage renal disease and subsequent bacteremia. Who comes in today with decreased right shoulder mobility and right shoulder swelling. The patient was seen assessed by orthopedics who did age oriented tap which was not consistent with a septic arthritis. The patient has already been started on antibiotics. Due to these reasons and need for dialysis in the morning the patient was admitted to the medicine team. Clinical Impression: 1. ESR raised 2. Swelling of right upper extremity 3. Type 2 diabetes mellitus with diabetic polyneuropathy, without long-term current use of insulin ([facility]) 4. ESRD (end stage renal disease) ([facility]) 5. Essential hypertension 6. Chronic bilateral back pain, unspecified back location Disposition: Patient was admitted to the medicine team Levi Cooper MD Farm Management Supervisor of Emergency Fork OperatorFarm Management Supervisor of Pulmonary & Critical Care Medicine [facility] * Anabel Mcintosh RN - 08/26/2024 9:39 PM CDT Bed: AC18 Expected date: Expected time: Means of arrival: Comments: Sanchez 2b * Servando Morris MD - 08/26/2024 7:35 PM CDT [facility] EMERGENCY DEPARTMENT ENCOUNTER HISTORICAL INFORMATION Primary Care Doctor: CHERISE MARCELO PA-C Patient information was obtained primarily from the patient and past medical records History/Exam limitations: none Interpretor services: no CHIEF COMPLAINT Shoulder Pain (Pt bibEMS from OSH with c/o R shoulder pain and possible septic joint. Pt arrives with NS bolus and Vancomycin infusing. A&Ox4, VSS. ) HPI Gay Canales is a 33 year old female who presents for worsening right shoulder pain. Patient has end-stage renal disease, hemodialysis had treatment yesterday. She only had portion of her treatmentbecause she was having increasing pain. Over last 3-4 days and increased pain and also some back pain. No fevers but felt a little bit chilled. She had a septic arthritis with the washout by ortho hear a little less than a month ago. She is getting IV vanc through dialysis. She came here yesterday,had some lab work but did not stay due to the wait time so she went to an outside hospital. Loc they did a CT which showed a fluid collection with some erosion of the bone that we were aware of that she had some evidence of osteo before. She was transferred here for ortho. Patient tells me thesymptoms over about the same today as they were yesterday actually saw her in the triage process. PAST MEDICAL HISTORY Past Medical History: Diagnosis Date Essential (primary) hypertension Heart failure (HCC) Type 2 diabetes mellitus without complications (HCC) SURGICAL HISTORY Past Surgical History: Procedure Laterality Date DEBRIDEMENT Right 07/27/2024 Right; RIGHT SHOULDER INCISION AND DEBRIDEMENT LEG AMPUTATION ABOVE KNEE Left 12/05/2022 Left; AMPUTATION ABOVE LEFT KNEE Leg Amputation, Below Knee Left 12/02/2022 Left; LEFT ANKLE DISARTICULATION LEVEL 2 @ 2220 CURRENT MEDICATIONS Current Outpatient Medications: acetaminophen (Tylenol) 500 MG tablet, Take 1 (one) tablet by mouth every 4 hours Maximum allowableAcetaminophen amount = 4 Grams (4000 mg) / 24 hours. (Patient not taking: Reported on 08/23/2024), Disp: , Rfl: Alcohol Swabs (Alcohol Prep) 70 %, USE ONE SWAB TO CLEAN SKIN FOUR TIMES DAILY BEFORE TESTING (Patient not taking: Reported on 08/23/2024), Disp: 100 Each, Rfl: PRN amLODIPine (Norvasc) 10 MG tablet, Take 1 (one) tablet by mouth once daily, Disp: 30 tablet, Rfl: 0 apixaban (Eliquis) 5 MG tablet, Take 2 (two) tablets by mouth 2 times daily for 4 days, THEN 1 (one) tablet 2 times daily for 90 days. (Patient not taking: Reported on 08/23/2024), Disp: 196 tablet, Rfl: 0 bisacodyl (Dulcolax) 10 MG suppository, Insert 1 (one) suppository into the rectum once daily as needed for Constipation (Patient not taking: Reported on 08/23/2024), Disp: , Rfl: blood glucose (OneTouch Verio) test strip, USE ONE STRIP TO TEST BLOOD SUGAR FOUR TIMES DAILY (Patient not taking: Reported on 08/23/2024), Disp: 100 strip, Rfl: PRN Blood Glucose Monitoring Suppl (OneTouch Verio Reflect) w/Device KIT, Use 1 kit 4 times daily USE METER TO CHECK BLOOD GLUCOSE FOUR TIMES DAILY Reasons: CALL [facility] WHEN DELIVERING [id number], Disp: 1 kit, Rfl: 0 carvedilol (Coreg) 12.5 MG tablet, Take 1 (one) tablet by mouth 2 times daily with morning and evening meal, Disp: 60 tablet, Rfl: 0 FeroSul 325 (65 Fe) MG tablet, Take 1 (one) tablet by mouth daily with breakfast (Patient not taking: Reported on 08/23/2024), Disp: , Rfl: furosemide (Lasix) 40 MG tablet, Take 1 (one) tablet by mouth every Friday, Friday & Friday (Patient not taking: Reported on 08/23/2024), Disp: , Rfl: 0 gabapentin (Neurontin) 300 MG capsule, Take 1 (one) capsule by mouth every Friday, Friday & Friday, Disp: 30 capsule, Rfl: 0 Gauze Pads & Dressings (Gauze Dressing) 4 X4 PADS, Use 1 Pad every 2 days Apply to right shoulder, change dressing every 48 hours, sooner if needed. (Patient not taking: Reported on 08/23/2024),Disp: 24 Each, Rfl: 1 Lancets (ONETOUCH DELICA PLUS 33G EXTRA FINE LANCET), USE ONE LANCET TO PRICK FINGER FOUR TIMES DAILY FOR BLOOD GLUCOSE TESTING (Patient not taking: Reported on 08/23/2024), Disp: 100 Each, Rfl: PRN lisinopril (Prinivil; Zestril) 20 MG tablet, Take 1 (one) tablet by mouth once daily, Disp: 30 tablet, Rfl: 0 melatonin 3 MG tablet, Take 1 (one) tablet by mouth nightly as needed for Insomnia (Patient not taking: Reported on 08/23/2024), Disp: , Rfl: oxyCODONE, immediate release, (Roxicodone) 10 MG tablet, Take 1 (one) tablet by mouth every 4 hoursas needed for Pain, Disp: 12 tablet, Rfl: 0 renal vitamin (Dialyvite) tablet, Take 1 (one) tablet by mouth once daily (Patient not taking: Reported on 08/23/2024), Disp: , Rfl: senna (Senokot) 8.6 MG tablet, Take 1 (one) tablet by mouth once daily (Patient not taking: Reported on 08/23/2024), Disp: , Rfl: sevelamer carbonate (Renvela) 800 MG, Take 1 (one) tablet by mouth 3 times daily with meals (Patient not taking: Reported on 08/23/2024), Disp: , Rfl: vancomycin 750 mg in 0.9% NaCl IV 0.9 % 250 mL, 750 (seven hundred fifty) mg by Intravenous route every Friday, , & Friday for 35 days (Patient not taking: Reported on 08/23/2024), Disp: , Rfl: ALLERGIES No Known Allergies FAMILY HISTORY Family History Problem Relation Name Age of Onset Diabetes - Type 2 Mother Hypertension Mother Diabetes - Type 2 Father Hypertension Father Diabetes - Type 2 Paternal Grandmother Hypertension Paternal Grandmother SOCIAL HISTORY Social History Socioeconomic History Marital status: Single Tobacco Use Smoking status: Former Types: Cigarettes Start date: 2010 Smokeless tobacco: Never Tobacco comments: Quit 4-5 months after starting Vaping Use Vaping status: Never Used Substance and Sexual Activity Alcohol use: Not Currently Comment: Occassionally Drug use: Not Currently Types: Marijuana Comment: At age 20 for 4-5 months Sexual activity: Not Currently REVIEW OF SYSTEMS limited No ROS otherwise negative for acute new changes unless specified in HPI See HPI for further details. PHYSICAL EXAM VITAL SIGNS: BP (!) 197/108 Pulse 91 Temp 97.3 ??F (36.3 ??C) (Temporal) Resp 16 SpO2 97% Constitutional: Physical Exam Constitutional: General: She is not in acute distress. Appearance: She is not toxic-appearing. Cardiovascular: Rate and Rhythm: Normal rate. Pulses: Normal pulses. Comments: Has a dialysis catheter on the left chest. Pulmonary: Effort: Pulmonary effort is normal. Abdominal: Palpations: Abdomen is soft. Tenderness: There is no abdominal tenderness. Musculoskeletal: Comments: Wound anterior right shoulder healing there is some swelling around that shoulder. I can rotated with no severe pain but some. Not hot. No rash. Skin: General: Skin is warm and dry. Neurological: Mental Status: She is alert and oriented to person, place, and time. PULSE OXIMETRY INTERPRETATION Saturation: 95% Oxygen Delivery: ra Interpretation: nl Problem/s: 1.shoulder pain hx septic arthritis 2. 3. DDX: 1.recurrence septic arthritis 2.other fluid collection 3. Plan: consult ortho. Review labs MEDICAL DECISION MAKING Pertinent Labs & Imaging studies reviewed. (See chart for details) EKG (interpreted by ED provider) = Labs Reviewed CELL COUNT W DIFFERENTIAL FLUID - Abnormal; Notable for the following components: Result Value Total Nucleated Cells Fluid 3,700 (*) All other components within normal limits Narrative: No reference ranges established for body fluid cell counts. Any reference ranges provided are derived from published literature. The test results must be integrated into the clinical context for interpretation. CULTURE ANAEROBE CULTURE FLUID+GRAM STAIN DIFFERENTIAL MANUAL FLUID Narrative: No reference ranges established for body fluid differential cell counts. The test results must be integrated into the clinical context for interpretation. CRYSTAL INDENTIFICATION SYNOVIAL FLUID PATHOLOGY SMEAR BODY FLUID RADIOLOGY I have independently reviewed all imaging for today's visit. XR Shoulder Right 2Vw or More (Results Pending) MRI Thoracic Spine Wwo Cont (Results Pending) MRI Lumbar Spine Wo Contrast (Results Pending) CONSULTS: Yes PROGRESS NOTES/ED course ED Course as of 08/26/242238 Heide Aug 26, 2024 2101 Images from outside hospital. We could not ever review. Ortho tap but just got blood. They have a low suspicion that is this is a recurrence of her septic arthritis but will send a send cell count. Her CT she had a CT of her chest and her shoulder with IV contrast at the outside hospital. [LB] 2238 Considering her inflammatory markers and ortho does not think it is in her shoulder and she has got some back pain even though she has no neurological heart signs we ordered some MRIs of her spine. She needs to get admitted to Medicine. Signed out to oncoming team pending admission to Medicine[LB] ED Course User Index [LB] Servando Morris MD Medications given in ED: Yes Medications prescribed: Revised home medications: Social determinants of health: Amount and/or Complexity of Data Reviewed medical complexity: Triage notes and available nursing notes reviewed , Clinical lab tests: orderedand reviewed, Independent visualization of images: yes, Review and summarize past medical records: yes , and Discuss the patient with other providers: yes FINAL IMPRESSION 1. Swelling of right upper extremity Medications acetaminophen (Tylenol) tablet 1,000 mg (1,000 mg Oral Not Administered 08/26/24 1656) HYDROmorphone (Dilaudid) injection 0.5 mg (0.5 mg Intravenous $ Given 08/26/24 1702) losartan (Cozaar) tablet 25 mg (25 mg Oral $ Given 08/26/242213) amLODIPine (Norvasc) tablet 10 mg (10 mg Oral $ Given 08/26/242213) carvedilol (Coreg) tablet 12.5 mg (12.5 mg Oral $ Given 08/26/242213) DISPOSITION: pending SERVANDO MORRIS M.D. Emergency Medicine Physician I use M-modal dictation * Oneil Gamble - 08/26/2024 6:47 PM CDT EMERGENCY MEDICINE RESIDENT NOTE History of Present Illness: Gay Canales is a 33 year old female with a PMHx of recurrent MRSA bacteremia c/b R shoulder septic arthritis, R subscapularis abscess, R humeral head osteomyelitis s/p R shoulder arthrotomy, drainage, irrigation and debridement, synovectomy 07/27/2024, HTN, type 2 DM, HLD, ESRD on HD MWF, obesity, HHFpEF, PAD, RLE non-healing ischemic ulcers, R foot chronic ulcer w/ prior R calcaneal osteomyelitis, L foot necrotizing soft tissue infection s/p left AKA, depression who presents to [facility] from OSH w/ c/o R shoulder pain and possible septic joint. Patient has hx recurrent MRSA bacteremia February 2024, May 2024, and most recently July 2024. She was discharged from [facility] on 08/09/2024. She has been following with ID and has been on IV Vanc MWF after HD w/ EOT 09/10/2024. Patient recently endorses continued R shoulder pain with new swelling over same shoulder. ROM improved since last hospitalization but associated with tenderness. Patient also reports new shooting pain down spine that radiates across low back associated with R chest pain. She reports this started two days ago but has decreased in frequency and has only occurred one time today. Denies fevers, chills, n/v/d, recent sick contacts. No odor noted. She presented to [facility] yesterday 08/25/2024 but left AMA due to wait times. At [facility] WBC 16.2, HgB 9.9,ESR > 130, CRP 1.5, sCr 3.61. She presented to [facility] and was worked up. CT showed increase in size of complex fluid collection of R glenohumeral joint space measuring 5.8x4.6x4.0 cm. Images have not yet been obtained. She received NS bolus and dose of Vanc. [facility]. Patient says she has not been on any medications since discharge due to difficulty obtaining medications. She was sent home with oxy for pain, which she finished. She has tried tylenol for pain, but this does not help. She has been living with her sister who takes care of her and has been doing dressing changes daily. She did not get full dialysis tx yesterday. Patient is blind. Her surgical sites are c/d/i. Medications: No current facility-administered medications on file prior to encounter. Current Outpatient Medications on File Prior to Encounter Medication Sig Dispense Refill acetaminophen (Tylenol) 500 MG tablet Take 1 (one) tablet by mouth every 4 hours Maximum allowable Acetaminophen amount = 4 Grams (4000 mg) / 24 hours. (Patient not taking: Reported on 08/23/2024) Alcohol Swabs (Alcohol Prep) 70 % USE ONE SWAB TO CLEAN SKIN FOUR TIMES DAILY BEFORE TESTING (Patient not taking: Reported on 08/23/2024) 100 Each PRN amLODIPine (Norvasc) 10 MG tablet Take 1 (one) tablet by mouth once daily 30 tablet 0 apixaban (Eliquis) 5 MG tablet Take 2 (two) tablets by mouth 2 times daily for 4 days, THEN 1 (one)tablet 2 times daily for 90 days. (Patient not taking: Reported on 08/23/2024) 196 tablet 0 bisacodyl (Dulcolax) 10 MG suppository Insert 1 (one) suppository into the rectum once daily as needed for Constipation (Patient not taking: Reported on 08/23/2024) blood glucose (OneTouch Verio) test strip USE ONE STRIP TO TEST BLOOD SUGAR FOUR TIMES DAILY (Patient not taking: Reported on 08/23/2024) 100 strip PRN Blood Glucose Monitoring Suppl (ARKeXuch Verio Reflect) w/Device KIT Use 1 kit 4 times daily USE METER TO CHECK BLOOD GLUCOSE FOUR TIMES DAILY Reasons: CALL [facility] WHEN DELIVERING X4364 1 kit 0 carvedilol (Coreg) 12.5 MG tablet Take 1 (one) tablet by mouth 2 times daily with morning and evening meal 60 tablet 0 FeroSul 325 (65 Fe) MG tablet Take 1 (one) tablet by mouth daily with breakfast (Patient not taking: Reported on 08/23/2024) furosemide (Lasix) 40 MG tablet Take 1 (one) tablet by mouth every Friday, Friday & Friday (Patient not taking: Reported on 08/23/2024) 0 gabapentin (Neurontin) 300 MG capsule Take 1 (one) capsule by mouth every Friday, Friday & Friday 30 capsule 0 Gauze Pads & Dressings (Gauze Dressing) 4 X4 PADS Use 1 Pad every 2 days Apply to right shoulder, change dressing every 48 hours, sooner if needed. (Patient not taking: Reported on 08/23/2024) 24 Each 1 Lancets (TradyoTOUCH DELICA PLUS 33G EXTRA FINE LANCET) USE ONE LANCET TO PRICK FINGER FOUR TIMES DAILY FOR BLOOD GLUCOSE TESTING (Patient not taking: Reported on 08/23/2024) 100 Each PRN lisinopril (Prinivil; Zestril) 20 MG tablet Take 1 (one) tablet by mouth once daily 30 tablet 0 melatonin 3 MG tablet Take 1 (one) tablet by mouth nightly as needed for Insomnia (Patient not taking: Reported on 08/23/2024) oxyCODONE, immediate release, (Roxicodone) 10 MG tablet Take 1 (one) tablet by mouth every 4 hours as needed for Pain 12 tablet 0 renal vitamin (Dialyvite) tablet Take 1 (one) tablet by mouth once daily (Patient not taking: Reported on 08/23/2024) senna (Senokot) 8.6 MG tablet Take 1 (one) tablet by mouth once daily (Patient not taking: Reportedon 08/23/2024) sevelamer carbonate (Renvela) 800 MG Take 1 (one) tablet by mouth 3 times daily with meals (Patientnot taking: Reported on 08/23/2024) vancomycin 750 mg in 0.9% NaCl IV 0.9 % 250 mL 750 (seven hundred fifty) mg by Intravenous route every Friday, , & Friday for 35 days (Patient not taking: Reported on 08/23/2024) Allergies: No Known Allergies Social History: Social History Tobacco Use Smoking status: Former Types: Cigarettes Start date: 2010 Smokeless tobacco: Never Tobacco comments: Quit 4-5 months after starting Substance Use Topics Alcohol use: Not Currently Comment: Occassionally Review of Systems: See HPI for pertinent positives and negatives. Physical Exam: BP 153/91 Pulse 84 Temp 98 ??F (36.7 ??C) (Temporal) Resp 18 SpO2 99% Physical Exam Constitutional: Appearance: Normal appearance. She is obese. HENT: Head: Normocephalic and atraumatic. Cardiovascular: Rate and Rhythm: Normal rate and regular rhythm. Pulses: Normal pulses. Heart sounds: Normal heart sounds. Pulmonary: Breath sounds: Normal breath sounds. Abdominal: General: Abdomen is flat. Bowel sounds are normal. Palpations: Abdomen is soft. Tenderness: There is no abdominal tenderness. Musculoskeletal: Cervical back: Normal range of motion. Comments: Decreased ROM R shoulder, swelling over R deltoid, tenderness to palpation R deltoid and trapezius. L AKA. Skin: General: Skin is warm and dry. Findings: Lesion present. Comments: Chronic ischemic ulcers RLE Neurological: General: No focal deficit present. Mental Status: She is alert and oriented to person, place, and time. Mental status is at baseline. Psychiatric: Mood and Affect: Mood normal. Behavior: Behavior normal. Thought Content: Thought content normal. Judgment: Judgment normal. Medical Decision Making: Clinical Diagnoses: Hx MRSA bacteremia c/b R shoulder septic arthritis s/p arthrotomy on IV Vanc. DDx: Septic arthritis/osteomyelitis R shoulder Abscess R shoulder Epidural abscess Post-operative fluid collection MSK pain Other Plan: Therapeutic - Tylenol, Hydromorphone Labs - Synovial fluid cx w/ stain + cell count Imaging - NA Consults - Ortho, Medicine Next steps - Review labs, imaging, reassess ED Course: I have reviewed triage notes, vitals, available labs and imaging, and assessed the patient. Studies and Interpretations: Pulse Oximetry: Saturation: 99% Oxygen Delivery: Room Air Interpretation: No hypoxia at this time Summary: This is a 33 year old female presenting from OSH for c/o R shoulder septic arthritis/osteomyelitis. Exam is notable for decreased range of motion of R shoulder, swelling over R posterior shoulder/deltoid, tenderness to palpation R deltoid/trapezius. Labs and imaging pending. Assessment is most consistent with septic arthritis w/ c/f new epidural abscess vs post-operative fluid collection. Plan is for R shoulder synovial fluid collection w/ cx, stain, cell count. She willbe admitted for management of chronic HTN and diabetes. Interventions: Medications acetaminophen (Tylenol) tablet 1,000 mg (1,000 mg Oral Not Administered 08/26/24 1656) HYDROmorphone (Dilaudid) injection 0.5 mg (0.5 mg Intravenous $ Given 08/26/24 1702) Procedures Final ED Diagnosis: No diagnosis found. Disposition: Medicine. [facility] Emergency Medicine, MS4 * Teri Oleary RN - 08/26/2024 4:27 PM CDT Bed: [address] Expected date: Expected time: Means of arrival: Comments: Gay Canales * Imelda Woody APRN-ROLL TESTER - 08/26/2024 9:16 AM CDT Medical Screening Exam 08/26/2024 9:16 AM Provider contact with the patient Gay Canales CC: Shoulder Pain (Pt bibEMS from OSH with c/o R shoulder pain and possible septic joint. Pt arrives with NS bolus and Vancomycin infusing. A&Ox4, VSS. ) Chief complaint narrative was entered by triage nurse, not by provider Provider in Triage HPI: Gay Canales is a 33 year old female PMH as noted below who presents withright shoulder pain. Pt is right handed. Recent surgery to right shoulder. Had CT last night showing fluid. Pt transferred from [facility] for Ortho evaluation. Hx of MRSA bacteremia recently.Hx of ESRD. 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 Current Outpatient Medications Medication Sig Dispense Refill acetaminophen (Tylenol) 500 MG tablet Take 1 (one) tablet by mouth every 4 hours Maximum allowable Acetaminophen amount = 4 Grams (4000 mg) / 24 hours. (Patient not taking: Reported on 08/23/2024) Alcohol Swabs (Alcohol Prep) 70 % USE ONE SWAB TO CLEAN SKIN FOUR TIMES DAILY BEFORE TESTING (Patient not taking: Reported on 08/23/2024) 100 Each PRN amLODIPine (Norvasc) 10 MG tablet Take 1 (one) tablet by mouth once daily 30 tablet 0 apixaban (Eliquis) 5 MG tablet Take 2 (two) tablets by mouth 2 times daily for 4 days, THEN 1 (one)tablet 2 times daily for 90 days. (Patient not taking: Reported on 08/23/2024) 196 tablet 0 bisacodyl (Dulcolax) 10 MG suppository Insert 1 (one) suppository into the rectum once daily as needed for Constipation (Patient not taking: Reported on 08/23/2024) blood glucose (ARKeXuch Verio) test strip USE ONE STRIP TO TEST BLOOD SUGAR FOUR TIMES DAILY (Patient not taking: Reported on 08/23/2024) 100 strip PRN Blood Glucose Monitoring Suppl (OpswareTouch Verio Reflect) w/Device KIT Use 1 kit 4 times daily USE METER TO CHECK BLOOD GLUCOSE FOUR TIMES DAILY Reasons: CALL [facility] WHEN DELIVERING X4364 1 kit 0 carvedilol (Coreg) 12.5 MG tablet Take 1 (one) tablet by mouth 2 times daily with morning and evening meal 60 tablet 0 FeroSul 325 (65 Fe) MG tablet Take 1 (one) tablet by mouth daily with breakfast (Patient not taking: Reported on 08/23/2024) furosemide (Lasix) 40 MG tablet Take 1 (one) tablet by mouth every Friday, Friday & Friday (Patient not taking: Reported on 08/23/2024) 0 gabapentin (Neurontin) 300 MG capsule Take 1 (one) capsule by mouth every Friday, Friday & Friday 30 capsule 0 Gauze Pads & Dressings (Gauze Dressing) 4 X4 PADS Use 1 Pad every 2 days Apply to right shoulder, change dressing every 48 hours, sooner if needed. (Patient not taking: Reported on 08/23/2024) 24 Each 1 Lancets (TradyoTOUCH DELICA PLUS 33G EXTRA FINE LANCET) USE ONE LANCET TO PRICK FINGER FOUR TIMES DAILY FOR BLOOD GLUCOSE TESTING (Patient not taking: Reported on 08/23/2024) 100 Each PRN lisinopril (Prinivil; Zestril) 20 MG tablet Take 1 (one) tablet by mouth once daily 30 tablet 0 melatonin 3 MG tablet Take 1 (one) tablet by mouth nightly as needed for Insomnia (Patient not taking: Reported on 08/23/2024) oxyCODONE, immediate release, (Roxicodone) 10 MG tablet Take 1 (one) tablet by mouth every 4 hours as needed for Pain 12 tablet 0 renal vitamin (Dialyvite) tablet Take 1 (one) tablet by mouth once daily (Patient not taking: Reported on 08/23/2024) senna (Senokot) 8.6 MG tablet Take 1 (one) tablet by mouth once daily (Patient not taking: Reportedon 08/23/2024) sevelamer carbonate (Renvela) 800 MG Take 1 (one) tablet by mouth 3 times daily with meals (Patientnot taking: Reported on 08/23/2024) vancomycin 750 mg in 0.9% NaCl IV 0.9 % 250 mL 750 (seven hundred fifty) mg by Intravenous route every Friday, , & Friday for 35 days (Patient not taking: Reported on 08/23/2024) No Known Allergies PCP: CHERISE MARCELO PA-C (Above may be pending completion) Review of Systems: Primary System Noted in HPI. All other systems reviewed and are negative. Vital Signs reviewed in Triage BP 160/92 Pulse 88 Temp 98.1 ??F (36.7 ??C) Resp 19 SpO2 96% Pertinent Physical Findings: Constitutional: vitals as above, in hospital gown. Head: Head normocephalic, atraumatic Eyes: conjunctiva clear ENT: no rhinorrhea Neck: neck supple, Resp: respirations even and unlabored, Skin: warm, dry,color normal for ethnicity MSK in bed. Neuro: A&O x 3, Psych: Normal affect Complete physical exam is limited due to patient sitting in up right position in chair MDM: I have reviewed all lab and imaging resulted ordered during this visit and available at the time ofthis note. Triage notes and available nursing notes reviewed. Previous medical record reviewed whenavailable. Management options include but not limited to: physical exam, laboratory testing, discussion with other providers. PLAN Diagnostic tests ordered: No orders of the defined types were placed in this encounter. MEDICATIONS FOR CURRENT ENCOUNTER: SCHEDULED MEDICATIONS: No current facility-administered medications for this encounter. CONTINUOUS MEDICATIONS: No current facility-administered medications for this encounter. PRN MEDICATIONS: No current facility-administered medications for this encounter. Clinical Impression: 1.right shoulder pain Based on the Medical Screening Exam performed and diagnostic tests at this time, further evaluationis indicated and will be performed. Patient will be transferred to a main ED room when one is available and care will be transferred to ER provider. CARLOS Stewart * Francy Rodgers - 08/26/2024 9:14 AM CDT Pt in waiting area. Vitals updated. documented in this encounter Miscellaneous Notes * Clinical References VONDA - José Brower MD - 09/01/2024 11:32 AM CDT [address]157 Discharge Instructions for Osteomyelitis You have a condition called osteomyelitis. This is a bone infection caused by bacteria or fungi. Itmay have spread through the blood from one area of your body to the bone. Osteomyelitis is called acute when the infection is new. It's called chronic when you've had it for a longer time. Home care ?? Take your medicine exactly as directed. If you were given antibiotics or antifungal medicine, make sure you finish the prescription?even if you feel better. If you don?t finish the medicine, the infection may return and may make future infections harder to treat. ?? Be careful not to injure the area where you have the infection. ?? Carefully follow all instructions for taking care of any wounds. ?? Use a splint, sling, or brace as directed by your healthcare provider. Follow-up care Make a follow-up appointment, or as directed. When to get medical care Call your healthcare provider if you have any of the following: ?? Increasing pain, redness, swelling, or drainage in the infected area ?? Fever of 100.4?? F ( 38??C) or higher, or as advised by your provider ?? Chills ?? Increasing fatigue or feeling tired Last Reviewed Date: 2021 00:00:00 ?? [id number] [employer]. All rights reserved. This information is not intended as a substitute for professional medical care. Always follow your healthcare professional's instructions. * Clinical References AVS - José Brower MD - 09/01/2024 11:32 AM CDT Images from the original note were not included. [id number] Sepsis Sepsis is a very serious condition. It happens when your body responds with widespread inflammationto a severe infection, usually caused by bacteria. Sometimes it may be caused by a virus. Sepsis can be deadly. Blood pressure may drop. The lungs, liver, and kidneys may start to fail. Sepsis is a medical emergency. If someone has symptoms of sepsis, call 911 right away. Risk factors Those most at risk for sepsis are: ?? Infants or older adults ?? People who have an illness that weakens their immune system, such as cancer, AIDS, or diabetes ?? People being treated with chemotherapy medicines, high-dose steroids, or radiation, which weakenthe immune system ?? People who have had an organ transplant ?? People with long-term (chronic) lung, kidney, liver, or heart disease ?? People with a very severe infection, such as pneumonia, meningitis, or a urinary tract infection When to call 911 Sepsis is a medical emergency. Call 911 right away if you have a fever with any of these symptoms: ?? Chills and shaking ?? Fast heartbeat and breathing ?? Trouble breathing ?? Severe nausea or uncontrolled vomiting ?? Confusion, disorientation, drowsiness, or dizziness ?? Decreased urination ?? Severe pain, including in the back or joints What to expect in the emergency room To treat sepsis, antibiotics and fluids may by given through an intravenous (IV) line. ?? Blood and urine tests are done to look for bacteria. They also check for organ failure. ?? Blood, urine, or sputum cultures may be taken. The samples are sent to a lab. They are placed jim special container. Any bacteria should grow in 24 to 48 hours. ?? X-rays or other imaging tests may be done. A person with sepsis will be admitted to the hospital and treated with antibiotics. Treatment will also include oxygen and IV (intravenous) fluids and other medicines as needed. The person will be watched very closely, usually in the intensive care unit (ICU). Last Reviewed Date: 2023 00:00:00 ?? [id number] [employer]. All rights reserved. This information is not intended as a substitute for professional medical care. Always follow your healthcare professional's instructions. 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 Office Visit [facility] - Infectious Disease [address] [place] [address], [facility] [place] [address] Kash Ha MD [address] [place] [id number] Scheduled Orders Name Type Priority Associated Diagnoses Orde r Schedule CULTURE FLUID+GRAM STAIN Microbiology Routine ONCE for 1 Occur rences starting 08/30/2024 until 08/30/2024 Scheduled Referrals Name Type Priority Associated Diagnoses Order Schedule Ref to Orthopedics - [facility] Outpatient Referral Routine MRSA bacteremia 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HCC) 1 Occurrences starting 09/01/2024 until 09/01/2025 Ref to Infectious Disease - [facility] Outpatient Referral Routine MRSA bacteremia 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HCC) 1 Occurrences starting 09/01/2024 until 09/01/2025 Ref to Nephrology - [facility] Outpatient Referral Routine ESRD (end stage renal disease) (HCC) 1 Occurrences starting 09/01/2024 until 09/01/2025 Ref to IVR - [facility] Interventional Rad Outpatient Referral Routine 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HCC) 1 Occurrences starting 09/01/2024 until 09/01/2025 Referral to Home Health Care Outpatient Referral Routine 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HCC) Ordered: 09/01/2024 Referral to Home Health Care Outpatient Referral Routine 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HCC) Ordered: 09/01/2024 documented as of this encounter Procedures Procedure Name Priority Date/Time Associated Diagnosis Comments GLUCOSE - POINT OF CARE Routine 09/01/20 1:19 PM CDT GLUCOSE - POINT OF CARE Routine 09/01/20 8:04 AM CDT HEMODIALYSIS INPATIENT Routine 8:03 AM CDT VANCOMYCIN LEVEL RANDOM Timed 09/01/20 6:38 AM CDT MRSA bacteremia GLUCOSE - POINT OF CARE Routine 08/31/20 7:47 PM CDT CBC W AUTO DIFFERENTIAL Routine 08/31/20 7:18 PM CDT RENAL FUNCTION PANEL Routine 08/31/2024 7:18 PM CDT MAGNESIUM BLOOD Routine 08/31/2024 7:18 PM CDT GLUCOSE - POINT OF CARE Routine 08/31/20 4:58 PM CDT GLUCOSE - POINT OF CARE Routine 08/31/20 12:33 PM CDT GLUCOSE - POINT OF CARE Routine 08/31/20 7:55 AM CDT CBC W AUTO DIFFERENTIAL Routine 08/31/20 6:22 AM CDT RENAL FUNCTION PANEL Routine 08/31/2024 6:22 AM CDT HCG BETA BLOOD QUANTITATIVE MONICA 08/31/2024 6:22 AM CDT Pre-op exam MAGNESIUM BLOOD Routine 08/31/2024 6:22 AM CDT GLUCOSE - POINT OF CARE Routine 08/30/20 9:12 PM CDT HEMODIALYSIS INPATIENT Routine 3:[address] US GUIDED NEEDLE PLACEMENT Routine 08/30/2024 3:23 PM CDT Osteomyelitis of right shoulder, unspecified type (HCC) MRSA bacteremia Chronic osteomyelitis of right shoulder region (HCC) Acute pain of right shoulder Abscess of right shoulder CULTURE FLUID+GRAM STAIN STAT 08/30/2024 3:13 PM CDT CULTURE ANAEROBE Routine 08/30/2024 3:1 3 PM CDT HCG URINE QUAL POCT NOTIFICATION STAT 08/30/2024 1:58 PM CDT GLUCOSE - POINT OF CARE Routine 08/30/20 12:30 PM CDT GLUCOSE - POINT OF CARE Routine 08/30/20 8:01 AM CDT GLUCOSE - POINT OF CARE Routine 08/29/20 10:15 PM CDT CBC W AUTO DIFFERENTIAL Routine 08/29/20 8:24 PM CDT RENAL FUNCTION PANEL Routine 08/29/2024 8:24 PM CDT MAGNESIUM BLOOD Routine 08/29/2024 8:24 PM CDT GLUCOSE - [...] AUTO DIFFERENTIAL Routine 08/28/20 8:29 PM CDT RENAL FUNCTION PANEL Routine 08/28/2024 8:29 PM CDT MAGNESIUM BLOOD Routine 08/28/2024 8:29 PM CDT GLUCOSE - POINT OF CARE Routine 08/28/20 4:37 PM CDT GLUCOSE - POINT OF CARE Routine 08/28/20 11:48 AM CDT HEMODIALYSIS INPATIENT Routine 2:27 PM CDT OT EVAL AND TREAT Routine 08/27/2024 1:4 9 PM CDT PT EVAL AND TREAT Routine [...] AM CDT Swelling of right upper extremity CBC W AUTO DIFFERENTIAL STAT 08/26/20 11:12 PM CDT COMPREHENSIVE METABOLIC PANEL STAT 08/26/2024 11:12 PM CDT CRYSTAL INDENTIFICATION SYNOVIAL FLUID STAT 08/26/2024 9:15 PM CDT PATHOLOGY SMEAR BODY FLUID STAT 08/26/2024 9:15 PM CDT PATHOLOGY SMEAR BODY FLUID STAT 08/26/2024 9:15 PM CDT DIFFERENTIAL MANUAL FLUID STAT 08/26/2024 9:15 PM CDT CELL COUNT W DIFFERENTIAL FLUID STAT 08/26/2024 9:15 PM CDT XR SHOULDER RIGHT 2VW OR MORE STAT 08/26/2024 8:11 PM CDT Swelling of right upper extremity documented in this encounter Results * (ABNORMAL) GLUCOSE - POINT OF CARE (09/01/2024 1:19 PM CDT) Glucose WB/POC 163(H) 70 - 99 mg/dL 09/01/2024 1:24 PM CDT [facility] Specimen Type Cap Fingerstick 2023 1:24 PM CDT [facility] Blood BLOOD SPECIMEN / Unknown 09/01/2024 1:19 PM CDT 09/01/2024 1:24 PM CDT José Damian MD LAB - POINT OF CARE ORDERABLES [address] [address], [place] [phone] * (ABNORMAL) GLUCOSE - POINT OF CARE (09/01/2024 8:04 AM CDT) Glucose WB/POC 174(H) 70 - 99 mg/dL 09/01/2024 8:06 AM CDT [facility] Specimen Type Cap Fingerstick 2023 8:06 AM CDT [facility] Blood BLOOD SPECIMEN / Unknown 09/01/2024 8:04 AM CDT 09/01/2024 8:06 AM CDT José Damian MD LAB - POINT OF CARE ORDERABLES [address] [address], [place] [phone] * VANCOMYCIN LEVEL RANDOM (09/01/2024 6:38 AM CDT) Vancomycin Random 19.9 Therapeutic Ranges not established for random specimens ug/mL 09/01/2024 8:06 AM CDT [facility] Blood BLOOD SPECIMEN / Unknown Lab Venipuncture / Unknown 09/01/2024 6:38 AM CDT 09/01/2024 7:56 AM CDT Narrative [facility] - 09/01/2024 8:06 AM CDT See institution protocol. Harpreet Katz DO LAB - CHEMISTRY DIVINA OLVERA Performing Organization Address City/[facility]/ZIP Co de Phone Number [address] [address], [place] [phone] * (ABNORMAL) GLUCOSE - POINT OF CARE (08/31/2024 7:47 PM CDT) Glucose WB/POC 218(H) 70 - 99 mg/dL 08/31/2024 11:11 PM CDT [facility] Specimen Type Cap Fingerstick 2023 11:11 PM CDT [facility] Blood BLOOD SPECIMEN / Unknown 08/31/2024 7:47 PM CDT 08/31/2024 11:11 PM CDT José Damian MD LAB - POINT OF CARE ORDERABLES Performing Organization Address City/[facility]/ZIP Co de Phone Number [address] [address], [place] [phone] * (ABNORMAL) CBC W AUTO DIFFERENTIAL (08/31/2024 7:18 PM [facility]) [facility] Signature WBC 9.5 4.0 - 10.7 x10E9/L 08/31/2024 8:05 PM [facility] RBC Count 3.47(L) 3.90 - 5.20 x10E12/L 08/31/2024 8:05 PM [facility] Hemoglobin 10.1(L) 11.9 - 15.8 g/dL 08/31/2024 8:05 PM [facility] Hematocrit 33.1(L) 34.8 - 46.1 % 08/31/2024 8:05 PM [facility] MCV 95.4 80.0 - 98.0 fL 08/31/2024 8:05 PM [facility] MCH 29.1 26.7 - 33.6 pg 08/31/2024 8:05 PM [facility] MCHC 30.5(L) 31.7 - 36.3 g/dL 08/31/2024 8:05 PM [facility] RDW-CV 15.2(H) 11.3 - 14.8 % 08/31/2024 8:05 PM [facility] Platelet Count 349 150 - 420 x10E9/L 08/31/2024 8:05 PM [facility] MPV 9.2 7.8 - 11.4 fL 08/31/2024 8:05 PM [facility] Neutrophil % 50.0 41.0 - 74.0 % 08/31/2024 8:05 PM [facility] Lymphocyte % 27.5 17.0 - 47.0 % 08/31/2024 8:05 PM [facility] Monocyte % 7.1 3.0 - 11.0 % 08/31/2024 8:05 PM [facility] Eosinophil % 14.5(H) 0.0 - 7.0 % 08/31/2024 8:05 PM [facility] Basophil % 0.6 0.0 - 1.6 % 08/31/2024 8:05 PM [facility] Immature Granulocytes % 0.3 0.0 - 1.0 % 08/31/2024 8:05 PM CDT [facility] Neutrophil Absolute 4.74 1.60 - 7.50 x10E9/L 08/31/2024 8:05 PM CDT [facility] Lymphocyte Absolute 2.60 1.00 - 4.40 x10E9/L 08/31/2024 8:05 PM CDT [facility] Monocyte Absolute 0.67 0.15 - 1.00 x10E9/L 08/31/2024 8:05 PM CDT [facility] Eosinophil Absolute 1.37(H) 0.00 - 0.60 x10E9/L 08/31/2024 8:05 PM CDT [facility] Basophil Absolute 0.06 0.00 - 0.13 x10E9/L 08/31/2024 8:05 PM CDT [facility] Blood BLOOD SPECIMEN / Unknown Lab Venipuncture / Unknown 08/31/2024 7:18 PM CDT 08/31/2024 7:59 PM CDT Noe Rabago MD LAB - HEMATOLOGY ORD ERABLES [address] [address], [place] [phone] * MAGNESIUM BLOOD (08/31/2024 7:18 PM CDT) Magnesium 2.1 1.6 - 2.6 mg/dL 08/31/2024 8:37 PM CDT [facility] Blood BLOOD SPECIMEN / Unknown Lab Venipuncture / Unknown 08/31/2024 7:18 PM CDT 08/31/2024 8:23 PM CDT Noe Rabago MD LAB - CHEMISTRY ORDE WADE [address] [address], [place] [phone] * (ABNORMAL) RENAL FUNCTION PANEL (08/31/2024 7:18 PM CDT) BUN 31(H) 7 - 26 mg/dL 08/31/2024 8:37 PM [facility] Creatinine 5.54(H) 0.56 - 0.96 mg/dL 08/31/2024 8:37 PM [facility] Sodium 138 136 - 145 mmol/L 08/31/2024 8:37 PM [facility] Potassium 5.2(H) 3.5 - 4.5 mmol/L 08/31/2024 8:37 PM [facility] Chloride 103 98 - 107 mmol/L 08/31/2024 8:37 PM [facility] CO2 20(L) 22 - 29 mmol/L 08/31/2024 8:37 PM [facility] Glucose 179(H) 70 - 99 mg/dL 08/31/2024 8:37 PM [facility] Albumin 2.3(L) 3.4 - 5.0 g/dL 08/31/2024 8:37 PM [facility] Calcium 8.1(L) 8.4 - 10.2 mg/dL 08/31/2024 8:37 PM [facility] Phosphorus 5.3(H) 2.9 - 5.1 mg/dL 08/31/2024 8:37 PM [facility] Anion Gap 15 6 - 16 08/31/2024 8:37 PM [facility] BUN/Creatinine Ratio 6(L) 7 - 23 08/31/2024 8:37 PM [facility] Osmolality Calculated 297(H) 275 - 295 mOsm/kg 08/31/2024 8:37 PM [facility] eGFR by CKD-EPI 10(L) >=90 mL/min/1.7 3 m2 08/31/2024 8:37 PM [facility] Blood BLOOD SPECIMEN / Unknown Lab Venipuncture / Unknown 08/31/2024 7:18 PM CDT 08/31/2024 8:23 PM T Noe Rabago MD LAB - CHEMISTRY DIVINA OLVERA [facility] [address] [place] [address], [place] [phone] * (ABNORMAL) GLUCOSE - POINT OF CARE (08/31/2024 4:58 PM CDT) Glucose WB/POC 200(H) 70 - 99 mg/dL 08/31/2024 4:59 PM CDT [facility] Specimen Type Cap Fingerstick 2023 4:59 PM CDT [facility] Blood BLOOD SPECIMEN / Unknown 08/31/2024 4:58 PM CDT 08/31/2024 4:59 PM CDT José Damian MD LAB - POINT OF CARE ORDERABLES [facility] [address] [place] [address], [place] [phone] * (ABNORMAL) GLUCOSE - POINT OF CARE (08/31/2024 12:33 PM CDT) Glucose WB/POC 264(H) 70 - 99 mg/dL 08/31/2024 1:37 PM CDT [facility] Specimen Type Cap Fingerstick 2023 1:37 PM CDT [facility] Blood BLOOD SPECIMEN / Unknown 08/31/2024 12:33 PM CDT 08/31/2024 1:37 PM CDT José Damian MD LAB - POINT OF CARE ORDERABLES [facility] [address] [place] [address], [place] [phone] * (ABNORMAL) GLUCOSE - POINT OF CARE (08/31/2024 7:55 AM CDT) Glucose WB/POC 189(H) 70 - 99 mg/dL 08/31/2024 8:29 AM CDT [facility] Specimen Type Cap Fingerstick 2023 8:29 AM CDT [facility] Blood BLOOD SPECIMEN / Unknown 08/31/2024 7:55 AM CDT 08/31/2024 8:29 AM CDT José Damian MD LAB - POINT OF CARE ORDERABLES [facility] [address] [place] [address], [place] [phone] * (ABNORMAL) CBC W AUTO DIFFERENTIAL (08/31/2024 6:22 AM CDT) WBC 9.7 4.0 - 10.7 x10E9/L 08/31/2024 7:28 AM [facility] RBC Count 3.24(L) 3.90 - 5.20 x10E12/L 08/31/2024 7:28 AM [facility] Hemoglobin 9.4(L) 11.9 - 15.8 g/dL 08/31/2024 7:28 AM [facility] Hematocrit 31.1(L) 34.8 - 46.1 % 08/31/2024 7:28 AM [facility] MCV 96.0 80.0 - 98.0 fL 08/31/2024 7:28 AM [facility] MCH 29.0 26.7 - 33.6 pg 08/31/2024 7:28 AM [facility] MCHC 30.2(L) 31.7 - 36.3 g/dL 08/31/2024 7:28 AM [facility] RDW-CV 15.1(H) 11.3 - 14.8 % 08/31/2024 7:28 AM [facility] Platelet Count 398 150 - 420 x10E9/L 08/31/2024 7:28 AM [facility] MPV 9.0 7.8 - 11.4 fL 08/31/2024 7:28 AM [facility] Neutrophil % 51.0 41.0 - 74.0 % 08/31/2024 7:28 AM [facility] Lymphocyte % 27.8 17.0 - 47.0 % 08/31/2024 7:28 AM [facility] Monocyte % 7.2 3.0 - 11.0 % 08/31/2024 7:28 AM [facility] Eosinophil % 13.1(H) 0.0 - 7.0 % 08/31/2024 7:28 AM [facility] Basophil % 0.4 0.0 - 1.6 % 08/31/2024 7:28 AM [facility] Immature Granulocytes % 0.5 0.0 - 1.0 % 08/31/2024 7:28 AM [facility] Neutrophil Absolute 4.96 1.60 - 7.50 x10E9/L 08/31/2024 7:28 AM [facility] Lymphocyte Absolute 2.70 1.00 - 4.40 x10E9/L 08/31/2024 7:28 AM [facility] Monocyte Absolute 0.70 0.15 - 1.00 x10E9/L 08/31/2024 7:28 AM [facility] Eosinophil Absolute 1.27(H) 0.00 - 0.60 x10E9/L 08/31/2024 7:28 AM [facility] Basophil Absolute 0.04 0.00 - 0.13 x10E9/L 08/31/2024 7:28 AM [facility] Blood BLOOD SPECIMEN / Unknown Lab Venipuncture / Unknown 08/31/2024 6:22 AM CDT 08/31/2024 7:05 AM CDT Noe Rabago MD LAB - HEMATOLOGY ORD ERABLES Performing Organization Address City/State/[facility] Co de Phone Number [facility] [address] [place] [address], [place] [phone] * MAGNESIUM BLOOD (08/31/2024 6:22 AM CDT) Magnesium 2.0 1.6 - 2.6 mg/dL 08/31/2024 7:21 AM T [facility] Blood BLOOD SPECIMEN / Unknown Lab Venipuncture / Unknown 08/31/2024 6:22 AM CDT 08/31/2024 6:51 AM CDT Noe Rabago MD LAB - CHEMISTRY DIVINA OLVERA [facility] Organization Address City/State/ZIP Co de Phone Number [facility] [address] [place] [address], [place] [phone] * (ABNORMAL) RENAL FUNCTION PANEL (08/31/2024 6:22 AM CDT) BUN 22 7 - 26 mg/dL 08/31/2024 7:21 AM [facility] Creatinine 4.39(H) 0.56 - 0.96 mg/dL 08/31/2024 7:21 AM [facility] Sodium 137 136 - 145 mmol/L 08/31/2024 7:21 AM [facility] Potassium 4.5 3.5 - 4.5 mmol/L 08/31/2024 7:21 AM [facility] Chloride 102 98 - 107 mmol/L 08/31/2024 7:21 AM [facility] CO2 26 22 - 29 mmol/L 08/31/2024 7:21 AM [facility] Glucose 197(H) 70 - 99 mg/dL 08/31/2024 7:21 AM [facility] Albumin 2.2(L) 3.4 - 5.0 g/dL 08/31/2024 7:21 AM [facility] Calcium 8.0(L) 8.4 - 10.2 mg/dL 08/31/2024 7:21 AM [facility] Phosphorus 4.2 2.9 - 5.1 mg/dL 08/31/2024 7:21 AM [facility] Anion Gap 9 6 - 16 08/31/2024 7:21 AM [facility] BUN/Creatinine Ratio 5(L) 7 - 23 08/31/2024 7:21 AM [facility] Osmolality Calculated 293 275 - 295 mOsm/kg 08/31/2024 7:21 AM [facility] eGFR by CKD-EPI 13(L) >=90 mL/min/1.7 3 m2 08/31/2024 7:21 AM [facility] Blood BLOOD SPECIMEN / Unknown Lab Venipuncture / Unknown 08/31/2024 6:22 AM CDT 08/31/2024 6:51 AM CDT Noe Rabago MD LAB - CHEMISTRY ORDE WADE Performing Organization Address City/[facility]/ZIP Co de Phone Number [facility] [address] [place] [address], [place] [phone] * HCG BETA BLOOD QUANTITATIVE (08/31/2024 6:22 AM CDT) [facility] Beta-hCG Total Quantitative <3 mIU/mL 08/31/2024 7:30 AM CDT [facility] Comment: HCG Numeric Result Interpretation: ? [...] 6:22 AM CDT 08/31/2024 6:51 AM CDT Shayla Nugent MD LAB - CHEMIS TRY ORDERABLES Performing Organization Address City/[facility]/ZIP Co de Phone Number [facility] [address] [place] [address], [place] [phone] * (ABNORMAL) GLUCOSE - POINT OF CARE (08/30/2024 9:12 PM CDT) [facility] Glucose WB/POC 125(H) 70 - 99 mg/dL 08/30/2024 10:13 PM CDT [facility] Specimen Type Cap Fingerstick 2023 10:13 PM CDT [facility] Blood BLOOD SPECIMEN / Unknown 08/30/2024 9:12 PM CDT 08/30/2024 10:13 PM CDT Noe Rabago MD LAB - POINT OF CARE ORDERABLES [facility] [address] [place] [address], [place] [phone] * CT US Guided Needle Placement (08/30/2024 3:23 PM CDT) Anatomical Region Laterality Modality Chest, Abdomen Computed Tomogra phy 08/30/2024 3:42 PM CDT Impressions 08/31/2024 9:09 AM CDT Impression: Successful ultrasound-guided placement of a 10 Swiss pigtail drainage catheter in right intramuscular abscess, as described above. The aspirate was viscous and purulent, and approximately 15 mL of fluid were drained during the procedure. I, Dr. Shayla Nugent, was present and performed/supervised the entire procedure. Shayla Kim have personally reviewed and interpreted this examination/study. > Interpreting Provider: Shayla Nugent on 08/31/2024 9:09 AM Narrative 08/31/2024 9:09 [...] proceed ahead with the procedure. Operators: 1.Dr. Shayla Nugent, Attending Physician 2.Dr. Chris MCDONNELL, Resident Physician [...] was provided with 1% Lidocaine. ??A 5 Swiss coaxial needle system was advanced in stages under real time ultrasound guidance. Upon aspiration, the outer-sheath was advanced within the abscess. An attempt was made for aspiration with a 5 Swiss catheter without success. Shortly after, a 0.035 wire was advanced through the sheath and following a series of exchanges, an 10 Swiss pigtail drainage catheter was advanced within the [...] complications associated with the procedure. Procedure Note Shayla Nugent MD - 08/31/2024 History: 33 year old [...] proceed ahead with the procedure. Operators: 1.Dr. Shayla Nugent, Attending Physician 2.Dr. Chris MCDONNELL, Resident Physician Anesthesia: 1.Local anesthesia - 10 mL of 1% lidocaine Procedure: 1.Limited ultrasound evaluation of the right shoulder. 2.Ultrasound-guided placement of an 10French pigtail drainage catheter, Wnig Delcid, in the right intramuscular shoulder abscess. [...] was provided with 1% Lidocaine. A 5 Swiss coaxialneedle system was advanced in stages under real time ultrasound guidance. Upon aspiration, the outer-sheath was advanced within the abscess. An attempt was made for aspiration with a 5 Swiss catheter without success.Shortly after, a 0.035 wire was advanced through the sheath and following aseries of exchanges, an 10 Swiss pigtail drainage catheter was advanced within the [...] the procedure well [facility]. There were no immediate complicationsassociated with the procedure. Impression: Successful ultrasound-guided placement of a 10 Frenchpigtail drainage catheter in right intramuscular abscess, as described above.The aspirate was viscous and purulent, and approximately 15 mL of fluid were drained during the procedure. I, Dr. Shayla Nugent, was present and performed/supervised the entire procedure. IShayla have personally reviewed and interpreted this examination/study. > Interpreting Provider: Shayla Nugent on 08/31/2024 9:09 AM Briana Larson PA-C CT ORDERABLES * CULTURE ANAEROBE (08/30/2024 3:13 PM CDT) Culture No anaerobic organisms isolated CHARLES 09/05/2024 3:01 PM [employer]BLE [employer]ER [facility]CRO[facility] Microbiology BODY FLUID SPECIMEN / Unknown Collection / Unknown 08/30/2024 3:13 PM CDT 08/30/2024 3:37 PM CDT Noe Rabago MD LAB - MICROBIOLOGY O DARRELL Performing Organization Address City/[facility]/ZIP Co de Phone Number [facility] [address] [place] [address], [place] [phone] * CULTURE FLUID+GRAM STAIN (08/30/2024 3:13 PM CDT) Culture No growth CHARLES 09/04/2024 12:22 PM CDT [facility] Gram Stain Light Polymorphonuclear cells 09/04/2024 12:22 PM CDT [facility] Gram Stain No organisms seen 024 12:22 PM CDT [facility] Other SYNOVIAL FLUID / Unknown Collection / Unknown 08/30/2024 3:13 PM CDT 08/30/2024 3:37 PM CDT Servando Morris MD LAB - MICROBIOLOGY O DARRELL [facility] [address] [place] [address], [place] [phone] * HCG URINE QUAL POCT NOTIFICATION (08/30/2024 1:58 PM CDT) Comment Notification Label Only - See Separate Report 08/30/2024 3:00 PM CDT [facility] Urine URINE / Unknown 08/30/2024 1 :58 PM CDT 08/30/2024 1:58 PM CDT Shayla Nugent MD LAB - URINAL YSIS ORDERABLES [address] [address], [place] [phone] * (ABNORMAL) GLUCOSE - POINT OF CARE (08/30/2024 12:30 PM CDT) Glucose WB/POC 161(H) 70 - 99 mg/dL 08/30/2024 12:39 PM CDT [facility] Specimen Type Cap Fingerstick 2023 12:39 PM CDT [facility] Blood BLOOD SPECIMEN / Unknown 08/30/2024 12:30 PM CDT 08/30/2024 12:39 PM CDT Noe Rabago MD LAB - POINT OF CARE ORDERABLES Performing Organization Address [facility]/ZIP Co de Phone Number [address] [address], [place] [phone] * (ABNORMAL) GLUCOSE - POINT OF CARE (08/30/2024 8:01 AM CDT) Glucose WB/POC 140(H) 70 - 99 mg/dL 08/30/2024 8:20 AM CDT [facility] Specimen Type Cap Fingerstick 2023 8:20 AM CDT [facility] Blood BLOOD SPECIMEN / Unknown 08/30/2024 8:01 AM CDT 08/30/2024 8:20 AM CDT Noe Rabago MD LAB - POINT OF CARE ORDERABLES [address] [address], [place] [phone] * (ABNORMAL) GLUCOSE - POINT OF CARE (08/29/2024 10:15 PM CDT) [facility] Glucose WB/POC 164(H) 70 - 99 mg/dL 08/29/2024 10:20 PM CDT [facility] Specimen Type Cap Fingerstick 2023 10:20 PM CDT [facility] Blood BLOOD SPECIMEN / Unknown 08/29/2024 10:15 PM CDT 08/29/2024 10:20 PM CDT Noe Rabago MD LAB - POINT OF CARE ORDERABLES [facility] [address] [place] [address], [place] [phone] * (ABNORMAL) CBC W AUTO DIFFERENTIAL (08/29/2024 8:24 PM CDT) [facility] WBC 9.6 4.0 - 10.7 x10E9/L 08/29/2024 9:40 PM [facility] RBC Count 3.10(L) 3.90 - 5.20 x10E12/L 08/29/2024 9:40 PM [facility] Hemoglobin 9.1(L) 11.9 - 15.8 g/dL 08/29/2024 9:40 PM [facility] Hematocrit 30.2(L) 34.8 - 46.1 % 08/29/2024 9:40 PM [facility] MCV 97.4 80.0 - 98.0 fL 08/29/2024 9:40 PM [facility] MCH 29.4 26.7 - 33.6 pg 08/29/2024 9:40 PM [facility] MCHC 30.1(L) 31.7 - 36.3 g/dL 08/29/2024 9:40 PM [facility] RDW-CV 15.3(H) 11.3 - 14.8 % 08/29/2024 9:40 PM [facility] Platelet Count 407 150 - 420 x10E9/L 08/29/2024 9:40 PM [facility] MPV 9.2 7.8 - 11.4 fL 08/29/2024 9:40 PM [facility] Neutrophil % 51.5 41.0 - 74.0 % 08/29/2024 9:40 PM [facility] Lymphocyte % 25.3 17.0 - 47.0 % 08/29/2024 9:40 PM [facility] Monocyte % 7.3 3.0 - 11.0 % 08/29/2024 9:40 PM [facility] Eosinophil % 14.9(H) 0.0 - 7.0 % 08/29/2024 9:40 PM [facility] Basophil % 0.4 0.0 - 1.6 % 08/29/2024 9:40 PM [facility] Immature Granulocytes % 0.6 0.0 - 1.0 % 08/29/2024 9:40 PM [facility] Neutrophil Absolute 4.96 1.60 - 7.50 x10E9/L 08/29/2024 9:40 PM [facility] Lymphocyte Absolute 2.44 1.00 - 4.40 x10E9/L 08/29/2024 9:40 PM [facility] Monocyte Absolute 0.70 0.15 - 1.00 x10E9/L 08/29/2024 9:40 PM [facility] Eosinophil Absolute 1.44(H) 0.00 - 0.60 x10E9/L 08/29/2024 9:40 PM [facility] Basophil Absolute 0.04 0.00 - 0.13 x10E9/L 08/29/2024 9:40 PM [facility] NRBC 0.3(H) <=0.0 /100 WBC 08/29/2024 9:40 PM [facility] Blood BLOOD SPECIMEN / Unknown Lab Venipuncture / Unknown 08/29/2024 8:24 PM CDT 08/29/2024 9:27 PM T Noe Rabago MD LAB - HEMATOLOGY ORD ERABLES [facility] [address] [place] [address], [place] [phone] * MAGNESIUM BLOOD (08/29/2024 8:24 PM CDT) Magnesium 2.2 1.6 - 2.6 mg/dL 08/29/2024 9:56 PM T [facility] Blood BLOOD SPECIMEN / Unknown Lab Venipuncture / Unknown 08/29/2024 8:24 PM CDT 08/29/2024 9:27 PM CDT Noe Rabago MD LAB - CHEMISTRY DIVINA OLVERA Performing Organization Address City/[facility]/ZIP Co de Phone Number [facility] [address] [place] [address], [place] [phone] * (ABNORMAL) RENAL FUNCTION PANEL (08/29/2024 8:24 PM CDT) BUN 35(H) 7 - 26 mg/dL 08/29/2024 9:56 PM [facility] Creatinine 6.51(H) 0.56 - 0.96 mg/dL 08/29/2024 9:56 PM [facility] Sodium 139 136 - 145 mmol/L 08/29/2024 9:56 PM [facility] Potassium 4.4 3.5 - 4.5 mmol/L 08/29/2024 9:56 PM [facility] Chloride 104 98 - 107 mmol/L 08/29/2024 9:56 PM [facility] CO2 23 22 - 29 mmol/L 08/29/2024 9:56 PM [facility] Glucose 177(H) 70 - 99 mg/dL 08/29/2024 9:56 PM [facility] Albumin 2.2(L) 3.4 - 5.0 g/dL 08/29/2024 9:56 PM [facility] Calcium 7.8(L) 8.4 - 10.2 mg/dL 08/29/2024 9:56 PM [facility] Phosphorus 6.2(H) 2.9 - 5.1 mg/dL 08/29/2024 9:56 PM CDT [facility] Anion Gap 12 6 - 16 08/29/2024 9:56 PM CDT [facility] BUN/Creatinine Ratio 5(L) 7 - 23 08/29/2024 9:56 PM CDT [facility] Osmolality Calculated 300(H) 275 - 295 mOsm/kg 08/29/2024 9:56 PM T [facility] eGFR by CKD-EPI 8(L) >=90 mL/min/1.7 3 m2 08/29/2024 9:56 PM CDT [facility] Blood BLOOD SPECIMEN / Unknown Lab Venipuncture / Unknown 08/29/2024 8:24 PM CDT 08/29/2024 9:27 PM CDT Noe Rabago MD LAB - CHEMISTRY ORDE WADE [address] [address], [place] [phone] * (ABNORMAL) GLUCOSE - POINT OF CARE (08/29/2024 4:56 PM CDT) Glucose WB/POC 295(H) 70 - 99 mg/dL 08/29/2024 5:08 PM CDT [facility] Specimen Type Cap Fingerstick 2023 5:08 PM CDT [facility] Blood BLOOD SPECIMEN / Unknown 08/29/2024 4:56 PM CDT 08/29/2024 5:08 PM CDT Noe Rabago MD LAB - POINT OF CARE ORDERABLES [address] [address], [place] [phone] * (ABNORMAL) GLUCOSE - POINT OF CARE (08/29/2024 12:13 PM CDT) Glucose WB/POC 231(H) 70 - 99 mg/dL 08/29/2024 12:21 PM CDT [facility] Specimen Type Cap Fingerstick 2023 12:21 PM CDT [facility] Blood BLOOD SPECIMEN / Unknown 08/29/2024 12:13 PM CDT 08/29/2024 12:21 PM CDT Noe Rabago MD LAB - POINT OF CARE ORDERABLES Performing Organization Address City/State/[facility] Co de Phone Number [facility] [address] [place] [address], [place] [phone] * MRI Shoulder Right Wwo Cont (08/29/2024 [...] myositis. > Dictated by Kranthi Alvarez MD, (executive vice president and chief operating officer). I, Xander De Guzman MD have personally reviewed and interpreted this examination/study. > Interpreting Provider: Xander De Guzman MD on 08/30/2024 9:01 AM Narrative 08/30/2024 9:01 AM CDT PROCEDURE: ??MRI SHOULDER RIGHT WWO CONT, DATE/TIME OF EXAM: ??08/29/2024 11:11 AM, LOCATION ??[facility] INDICATION: M86.9: Osteomyelitis of right shoulder, unspecified [...] DATE/TIME OF EXAM: 08/29/2024 11:11 AM, LOCATION [facility] INDICATION: M86.9: Osteomyelitis of right shoulder, unspecified [...] myositis. > Dictated by Kranthi Alvarez MD, (executive vice president and chief operating officer). I, Xander De Guzman MD have personally reviewed and interpreted this examination/study. > Interpreting Provider: Xander De Guzman MD on 08/30/2024 9:01 AM Harpreet JAIN ORDERABLES * (ABNORMAL) GLUCOSE - POINT OF CARE (08/29/2024 8:18 AM CDT) [facility] Glucose WB/POC 138(H) 70 - 99 mg/dL 08/29/2024 8:24 AM CDT [facility] Specimen Type Cap Fingerstick 2023 8:24 AM T [facility] Blood BLOOD SPECIMEN / Unknown 08/29/2024 8:18 AM CDT 08/29/2024 8:24 AM CDT Noe Rabago MD LAB - POINT OF CARE ORDERABLES Performing Organization Address City/State/[facility] Co de Phone Number [facility] [address] [place] [phone], [place] [phone] * (ABNORMAL) CBC W AUTO DIFFERENTIAL (08/28/2024 8:29 PM CDT) [facility] WBC 10.1 4.0 - 10.7 x10E9/L 08/28/2024 9:32 PM T [facility] RBC Count 3.00(L) 3.90 - 5.20 x10E12/L 08/28/2024 9:32 PM T [facility] Hemoglobin 8.9(L) 11.9 - 15.8 g/dL 08/28/2024 9:32 PM [facility] Hematocrit 29.5(L) 34.8 - 46.1 % 08/28/2024 9:32 PM [facility] MCV 98.3(H) 80.0 - 98.0 fL 08/28/2024 9:32 PM [facility] MCH 29.7 26.7 - 33.6 pg 08/28/2024 9:32 PM T [facility] MCHC 30.2(L) 31.7 - 36.3 g/dL 08/28/2024 9:32 PM T [facility] RDW-CV 15.4(H) 11.3 - 14.8 % 08/28/2024 9:32 PM [facility] Platelet Count 406 150 - 420 x10E9/L 08/28/2024 9:32 PM [facility] MPV 9.2 7.8 - 11.4 fL 08/28/2024 9:32 PM [facility] Neutrophil % 50.9 41.0 - 74.0 % 08/28/2024 9:32 PM [facility] Lymphocyte % 27.8 17.0 - 47.0 % 08/28/2024 9:32 PM [facility] Monocyte % 8.8 3.0 - 11.0 % 08/28/2024 9:32 PM [facility] Eosinophil % 11.8(H) 0.0 - 7.0 % 08/28/2024 9:32 PM [facility] Basophil % 0.4 0.0 - 1.6 % 08/28/2024 9:32 PM [facility] Immature Granulocytes % 0.3 0.0 - 1.0 % 08/28/2024 9:32 PM [facility] Neutrophil Absolute 5.11 1.60 - 7.50 x10E9/L 08/28/2024 9:32 PM [facility] Lymphocyte Absolute 2.80 1.00 - 4.40 x10E9/L 08/28/2024 9:32 PM [facility] Monocyte Absolute 0.89 0.15 - 1.00 x10E9/L 08/28/2024 9:32 PM [facility] Eosinophil Absolute 1.19(H) 0.00 - 0.60 x10E9/L 08/28/2024 9:32 PM [facility] Basophil Absolute 0.04 0.00 - 0.13 x10E9/L 08/28/2024 9:32 PM [facility] NRBC 0.5(H) <=0.0 /100 WBC 08/28/2024 9:32 PM [facility] Blood BLOOD SPECIMEN / Unknown Lab Venipuncture / Unknown 08/28/2024 8:29 PM CDT 08/28/2024 9:24 PM CDT Noe Rabago MD LAB - HEMATOLOGY ORD ERABLES [address] [address], [place] [phone] * MAGNESIUM BLOOD (08/28/2024 8:29 PM CDT) Magnesium 2.1 1.6 - 2.6 mg/dL 08/28/2024 9:54 PM T [facility] Blood BLOOD SPECIMEN / Unknown Lab Venipuncture / Unknown 08/28/2024 8:29 PM CDT 08/28/2024 9:24 PM CDT Noe Rabago MD LAB - CHEMISTRY ORDE WADE [address] [address], [place] [phone] * (ABNORMAL) RENAL FUNCTION PANEL (08/28/2024 8:29 PM CDT) BUN 30(H) 7 - 26 mg/dL 08/28/2024 9:54 PM T [facility] Creatinine 5.33(H) 0.56 - 0.96 mg/dL 08/28/2024 9:54 PM T [facility] Sodium 138 136 - 145 mmol/L 08/28/2024 9:54 PM T [facility] Potassium 4.4 3.5 - 4.5 mmol/L 08/28/2024 9:54 PM T [facility] Chloride 102 98 - 107 mmol/L 08/28/2024 9:54 PM T [facility] CO2 24 22 - 29 mmol/L 08/28/2024 9:54 PM T [facility] Glucose 215(H) 70 - 99 mg/dL 08/28/2024 9:54 PM T [facility] Albumin 2.3(L) 3.4 - 5.0 g/dL 08/28/2024 9:54 PM T [facility] Calcium 7.8(L) 8.4 - 10.2 mg/dL 08/28/2024 9:54 PM CDT [facility] Phosphorus 5.7(H) 2.9 - 5.1 mg/dL 08/28/2024 9:54 PM [facility] Anion Gap 12 6 - 16 08/28/2024 9:54 PM T [facility] BUN/Creatinine Ratio 6(L) 7 - 23 08/28/2024 9:54 PM T [facility] Osmolality Calculated 299(H) 275 - 295 mOsm/kg 08/28/2024 9:54 PM [facility] eGFR by CKD-EPI 10(L) >=90 mL/min/1.7 3 m2 08/28/2024 9:54 PM [facility] Blood BLOOD SPECIMEN / Unknown Lab Venipuncture / Unknown 08/28/2024 8:29 PM CDT 08/28/2024 9:24 PM CDT Noe Rabago MD LAB [facility]Y [facility] Address City/State/ZIP Co de Phone Number [facility] [address] [place] [address], [place] [phone] * (ABNORMAL) HEMOGLOBIN A1C (08/28/2024 8:29 PM CDT) Hemoglobin A1c 7.4(H) <=5.6 % 08/29/2024 8:36 AM [facility] Estimated Average Glucose 166 mg/dL 08/29/2024 8:36 AM [facility] Comment: HbA1c Interpretation: Normal : < 5.7% Pre-diabetes: 5.7-6.4% Diabetes: Equal to or greater than 6.5% Test results diagnostic of diabetes should be repeated for confirmation. Treatment target values recommended by ADA and other clinical organizations should be used to evaluate metabolic control in patients. Reference: [place] [employer], Standards of Care in Diabetes [...] Rabago MD LAB - CHEMISTRY DIVINA OLVERA [facility] [address] [place] [address], [place] [phone] * (ABNORMAL) GLUCOSE - POINT OF CARE (08/28/2024 4:37 PM CDT) Glucose WB/POC 197(H) 70 - 99 mg/dL 08/28/2024 5:07 PM CDT [facility] Specimen Type Cap Fingerstick 2023 5:07 PM CDT [facility] Blood BLOOD SPECIMEN / Unknown 08/28/2024 4:37 PM CDT 08/28/2024 5:07 PM CDT Noe Rabago MD LAB - POINT OF CARE ORDERABLES [address] [address], [place] [phone] * (ABNORMAL) GLUCOSE - POINT OF CARE (08/28/2024 11:48 AM CDT) Glucose WB/POC 239(H) 70 - 99 mg/dL 08/28/2024 11:53 AM CDT [facility] Specimen Type Cap Fingerstick 2023 11:53 AM CDT [facility] Blood BLOOD SPECIMEN / Unknown 08/28/2024 11:48 AM CDT 08/28/2024 11:53 AM CDT Noe Rabago MD LAB - POINT OF CARE ORDERABLES [address] [address], [place] [phone] * VANCOMYCIN LEVEL RANDOM (08/27/2024 12:22 PM CDT) Vancomycin Random 18.3 Therapeutic Ranges not established for random specimens ug/mL 08/27/2024 2:03 PM CDT [facility] Blood BLOOD SPECIMEN / Unknown Lab Venipuncture / Unknown 08/27/2024 12:22 PM CDT 08/27/2024 1:52 PM CDT Narrative [facility] - 08/27/2024 2:03 PM CDT See institution protocol. Harpreet Katz DO LAB - CHEMISTRY DIVINA OLVERA [facility] [address] [place] [address], [place] [phone] * MRI Cervical Spine Wwo Cont (08/27/2024 [...] septic arthritis. This study was dictated by executive vice president and chief operating officer Anam Pearson MD and reviewed and edited [...] septic arthritis. This study was dictated by executive vice president and chief operating officer Anam Pearson MD and reviewed and edited by the attending. Mery Kim MD have personally reviewed and interpreted this examination/study. > Interpreting Provider: Mery Esqueda MD on 08/27/2024 12:10 PM Servando Morris MD MR ORDERABLES * MRI Lumbar [...] septic arthritis. This study was dictated by executive vice president and chief operating officer Anam Pearson MD and reviewed and edited [...] septic arthritis. This study was dictated by executive vice president and chief operating officer Anam Pearson MD and reviewed and edited by the attending. I, Mery Esqueda MD have personally reviewed and interpreted this examination/study. > Interpreting Provider: Mery Esqueda MD on 08/27/2024 12:10 PM Servando Morris MD MR ORDERABLES * MRI Thoracic [...] septic arthritis. This study was dictated by executive vice president and chief operating officer Anam Pearson MD and reviewed and edited [...] septic arthritis. This study was dictated by executive vice president and chief operating officer Anam Pearson MD and reviewed and edited by the attending. I, Mery Esqueda MD have personally reviewed and interpreted this examination/study. > Interpreting Provider: Mery Esqueda MD on 08/27/2024 12:10 PM Servando Morris MD MR ORDERABLES * (ABNORMAL) COMPREHENSIVE METABOLIC PANEL (08/26/2024 11:12 PM CDT) BUN 34(H) 7 - 26 mg/dL 08/26/2024 11:40 PM [facility] Creatinine 5.04(H) 0.56 - 0.96 mg/dL 08/26/2024 11:40 PM [facility] Sodium 140 136 - 145 mmol/L 08/26/2024 11:40 PM CDT [facility] Potassium 5.4(H) 3.5 - 4.5 mmol/L 08/26/2024 11:40 PM [facility] Chloride 111(H) 98 - 107 mmol/L 08/26/2024 11:40 PM [facility] CO2 17(L) 22 - 29 mmol/L 08/26/2024 11:40 PM [facility] Glucose 104(H) 70 - 99 mg/dL 08/26/2024 11:40 PM [facility] Calcium 8.7 8.4 - 10.2 mg/dL 08/26/2024 11:40 PM [facility] Protein Total 8.2 6.0 - 8.3 g/dL 08/26/2024 11:40 PM [facility] Albumin 2.5(L) 3.4 - 5.0 g/dL 08/26/2024 11:40 PM [facility] Bilirubin Total 0.2 0.2 - 1.2 mg/dL 08/26/2024 11:40 PM [facility] Alkaline Phosphatase 215(H) 40 - 150 U/L 08/26/2024 11:40 PM [facility] ALT 6 5 - 55 U/L 08/26/2024 11:40 PM [facility] AST 13 5 - 34 U/L 08/26/2024 11:40 PM [facility] Anion Gap 12 6 - 16 08/26/2024 11:40 PM [facility] BUN/Creatinine Ratio 7 7 - 23 08/26/2024 11:40 PM [facility] Osmolality Calculated 298(H) 275 - 295 mOsm/kg 08/26/2024 11:40 PM [facility] Albumin/Globulin Ratio 0.4(L) 1.1 - 2.3 08/26/2024 11:40 PM [facility] eGFR by CKD-EPI 11(L) >=90 mL/min/1.7 3 m2 08/26/2024 11:40 PM [facility] Blood BLOOD SPECIMEN / Unknown Venipuncture / Unknown 08/26/2024 11:12 PM CDT 08/26/2024 11:15 PM [facility] Levi Cooper MD LAB - CHEMISTR Y ORDERABLES [facility] [address] [place] [phone] [phone] * (ABNORMAL) CBC W AUTO DIFFERENTIAL (08/26/2024 11:12 PM CDT) [facility] Signature WBC 11.0(H) 4.0 - 10.7 x10E9/L 08/26/2024 11:20 PM [facility] RBC Count 3.48(L) 3.90 - 5.20 x10E12/L 08/26/2024 11:20 PM [facility] Hemoglobin 10.1(L) 11.9 - 15.8 g/dL 08/26/2024 11:20 PM [facility] Hematocrit 33.2(L) 34.8 - 46.1 % 08/26/2024 11:20 PM [facility] MCV 95.4 80.0 - 98.0 fL 08/26/2024 11:20 PM [facility] MCH 29.0 26.7 - 33.6 pg 08/26/2024 11:20 PM [facility] MCHC 30.4(L) 31.7 - 36.3 g/dL 08/26/2024 11:20 PM [facility] RDW-CV 14.8 11.3 - 14.8 % 08/26/2024 11:20 PM [facility] Platelet Count 404 150 - 420 x10E9/L 08/26/2024 11:20 PM [facility] MPV 8.9 7.8 - 11.4 fL 08/26/2024 11:20 PM [facility] Neutrophil % 61.1 41.0 - 74.0 % 08/26/2024 11:20 PM [facility] Lymphocyte % 19.7 17.0 - 47.0 % 08/26/2024 11:20 PM [facility] Monocyte % 6.1 3.0 - 11.0 % 08/26/2024 11:20 PM [facility] Eosinophil % 11.8(H) 0.0 - 7.0 % 08/26/2024 11:20 PM [facility] Basophil % 0.7 0.0 - 1.6 % 08/26/2024 11:20 PM CDT [facility] Immature Granulocytes % 0.6 0.0 - 1.0 % 08/26/2024 11:20 PM CDT [facility] Neutrophil Absolute 6.70 1.60 - 7.50 x10E9/L 08/26/2024 11:20 PM CDT [facility] Lymphocyte Absolute 2.16 1.00 - 4.40 x10E9/L 08/26/2024 11:20 PM CDT [facility] Monocyte Absolute 0.67 0.15 - 1.00 x10E9/L 08/26/2024 11:20 PM CDT [facility] Eosinophil Absolute 1.29(H) 0.00 - 0.60 x10E9/L 08/26/2024 11:20 PM CDT [facility] Basophil Absolute 0.08 0.00 - 0.13 x10E9/L 08/26/2024 11:20 PM T [facility] NRBC 0.4(H) <=0.0 /100 WBC 08/26/2024 11:20 PM T [facility] Blood BLOOD SPECIMEN / Unknown Venipuncture / Unknown 08/26/2024 11:12 PM CDT 08/26/2024 11:15 PM CDT Levi Cooper MD LAB - HEMATOLO GY ORDERABLES Performing Organization Address City/State/[facility] Co de Phone Number [facility] [address] [place] [phone], [place] [phone] * PATHOLOGY SMEAR BODY FLUID (08/26/2024 9:15 PM CDT) Path Review Fluid Confirmed 08/30/2024 12:36 PM CDT [facility] Fluid SYNOVIAL FLUID / Unknown 08/26/2024 9:15 PM CDT 08/26/2024 10:31 PM CDT Narrative [facility] - 08/30/2024 12:36 PM CDT Synovial fluid cytospin (1:10): - ??Red blood cells present, consistent with peripheral blood contamination - ??No crystals seen under polarized light-microscopy Servando Morris MD LAB - PATHOLOGY/CYTO LOGY ORDERABLES Performing Organization Address [facility]/ZIP Co de Phone Number [address] [address], [place] [phone] * PATHOLOGY SMEAR BODY FLUID (08/26/2024 9:15 PM CDT) Path Review Fluid Confirmed 08/30/2024 12:38 PM CDT [facility] Fluid SYNOVIAL FLUID / Unknown Collection / Unknown 08/26/2024 9:15 PM CDT 08/26/2024 9:16 PM CDT Narrative [facility] - 08/30/2024 12:38 PM CDT Synovial fluid cytospin (1:20): - ??Red blood cells present, consistent with peripheral blood contamination - ??No crystals seen under polarized light microscopy Servando Morris MD LAB - PATHOLOGY/CYTO LOGY ORDERABLES Performing Organization Address [facility]/ZIP Co de Phone Number [address] [address], [place] [phone] * DIFFERENTIAL MANUAL FLUID (08/26/2024 9:15 PM CDT) Fluid Source Synovial 08/26/2024 10:35 PM CDT [facility] Body Fluid Total Cell Count 100 x10E6/L 08/26/2024 10:35 PM CDT [facility] Neutrophils Fluid Percent 83 % 08/26/2024 10:35 PM CDT [facility] Lymphocytes Fluid Percent 5 % 08/26/2024 10:35 PM CDT [facility] Eosinophils Fluid Percent 12 % 08/26/2024 10:35 PM CDT [facility] Fluid SYNOVIAL FLUID / Unknown Collection / Unknown 08/26/2024 9:15 PM CDT 08/26/2024 9:16 PM CDT Narrative [facility] - 08/26/2024 10:35 PM CDT No reference ranges established for body fluid differential cell counts. ??The test results must be integrated into the clinical context for interpretation. Servando Morris MD LAB - BODY FLUID ORD ERABLES [facility] [address] [place] [phone], [place] [phone] * CRYSTAL INDENTIFICATION SYNOVIAL FLUID (08/26/2024 9:15 PM CDT) Crystal Exam Fluid To be performed by Pathology. See Path Review. 08/26/2024 11:48 PM CDT [facility] Fluid SYNOVIAL FLUID / Unknown 08/26/2024 9:15 PM CDT 08/26/2024 10:31 PM CDT Servando Morris MD LAB - BODY FLUID ORD ERABLES Performing Organization Address City/[facility]/ZIP Co de Phone Number [address] [address], [place] [phone] * (ABNORMAL) CELL COUNT W DIFFERENTIAL FLUID (08/26/2024 9:15 PM CDT) Fluid Source Synovial 08/26/2024 10:35 PM CDT [facility] Fluid Appearance BLOODY 08/26/2024 10:35 PM CDT [facility] Fluid Color RED 08/26/2024 10:35 PM CDT [facility] Total Nucleated Cells Fluid 3,700(H) <=200 x10E6/L 08/26/2024 10:35 PM CDT [facility] Comment:Clots present. Count may be inaccurate. RBC Count Fluid 1,117,000 Reference Range Not Established x10E6/L 08/26/2024 10:35 PM CDT [facility] Fluid SYNOVIAL FLUID / Unknown Collection / Unknown 08/26/2024 9:15 PM CDT 08/26/2024 9:16 PM CDT Narrative [facility] - 08/26/2024 10:35 PM CDT No reference ranges established for body fluid cell counts. Any reference ranges provided are derived from published literature. The test results must be integrated into the clinical context for interpretation. Servando Morris MD LAB - BODY FLUID ORD ERABLES [facility] [address] [place] [address], [place] [phone] * XR Shoulder Right 2Vw or More (08/26/2024 8:11 PM CDT) Anatomical Region Laterality Modality Upper Extremity Digital Radiogra phy 08/26/2024 8:45 PM CDT Narrative 08/27/2024 12:36 AM CDT PROCEDURE: ??XR SHOULDER RIGHT 2VW OR MORE, DATE/TIME OF EXAM: ??08/26/2024 8:12 PM, LOCATION ??[facility] INDICATION: M79.89: Swelling of right upper extremity [...] lungs. Report dictated by Graeme Stern DO (executive vice president and chief operating officer). IArthur MD have personally reviewed and interpreted this examination/study. > Interpreting Provider: Arthur Avery MD on 08/27/2024 12:36 AM Procedure Note Arthur Avery MD - 08/27/2024 PROCEDURE: XR SHOULDER RIGHT 2VW OR MORE, DATE/TIME OF EXAM:08/26/2024 8:12 PM, LOCATION [facility] INDICATION: M79.89: Swelling of right upper extremity [...] lungs. Report dictated by Graeme Stern DO (executive vice president and chief operating officer). I, Arthur Avery MD have personally reviewed and interpreted this examination/study. > Interpreting Provider: Arthur Avery MD on 08/27/2024 12:36 AM Servando Morris MD DIAGNOSTIC IMAGING O RDERABLES documented in this encounter Visit Diagnoses Diagnosis Pre-op exam- Primary Preoperative examination, unspecified Swelling of right upper extremity ESR raised Elevated sedimentation rate Type 2 diabetes mellitus with diabetic polyneuropathy, without long-term current use of insulin (HCC) ESRD (end stage renal disease) (HCC) End stage renal disease Essential hypertension Chronic bilateral back pain, unspecified back location Osteomyelitis of right shoulder, unspecified type ([facility]) MRSA bacteremia Bacteremia Chronic osteomyelitis of right shoulder region ([facility]) 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[facility]) Pyogenic arthritis, shoulder region Acute pain of right shoulder Abscess of right shoulder ESR raised Elevated sedimentation rate ESRD (end stage renal disease) (HCC) End stage renal disease Essential hypertension Swelling of right upper extremity Type 2 diabetes mellitus with diabetic polyneuropathy, without long-term current use of insulin (HCC) Chronic bilateral back pain, unspecified back location Chronic osteomyelitis of right shoulder region (HCC) documented in this encounter Administered Medications Inactive Administered Medications - up to 3 most recent administrations Medication Order MAR Action Action Date Dose Rate Site 0.9% NaCl injection 1-10 mL 1-10 mL, Intracatheter, PRN, Other, peripheral line flush, Starting on Fri08/26/24 at 2325, Until Fri09/01/24 at 1759, Flush peripheral IV catheter with 1-10 mL of normal saline before and after medications and prn to clear blood from the line or to verify patency. $ Given 08/31/2024 9:49 AM CDT 10 mL 0.9% NaCl injection 3 mL 3 mL, Intracatheter, EVERY 8 HOURS, First dose on Fri08/27/24 at 0600, Until Discontinued, Flush peripheral IV catheter with 3 mL of normal saline every 8 hours. $ Given 09/01/2024 3:32 PM CDT 3 mL $ Given 09/01/2024 5:35 AM CDT 3 mL $ Given 08/31/2024 9:25 PM CDT 3 mL acetaminophen (Tylenol) tablet 1,000 mg 1,000 mg, Oral, EVERY 8 HOURS, First dose on Fri08/28/24 at 0945, Until Discontinued, Patient preference for lesser PRN pain meds may be honored when the patient requests a less strong medication, a lower dose, or a less intrusive route of administration when the lesser drug, dose and route have been ordered for the patient. This patient request must be documented in the MAR. If both oral and IV options are ordered for the same pain severity, give oral first unless patient cannot tolerate oral intake $ Given 09/01/2024 1:25 PM CDT 1,000 mg $ Given 09/01/2024 5:35 AM CDT 1,000 mg $ Given 08/31/2024 9:23 PM CDT 1,000 mg amLODIPine (Norvasc) tablet 10 mg 10 mg, Oral, NOW, 1 dose, On Fri08/26/24 at 2215 $ Given 08/26/2024 10:14 PM CDT 10 mg amLODIPine (Norvasc) tablet 10 mg 10 mg, Oral, DAILY, First dose on Fri08/27/24 at 0900, Until Discontinued $ Given 08/30/2024 8:53 AM CDT 10 mg $ Given 08/29/2024 8:37 AM CDT 10 mg $ Given 08/28/2024 8:43 AM CDT 10 mg amLODIPine (Norvasc) tablet 10 mg 10 mg, Oral, DAILY, First dose (after last modification) on Fri09/01/24 at 0900, Until Discontinued, Hold if SBP < 105 $ Given 09/01/2024 1:28 PM CDT 10 mg apixaban (Eliquis) tablet 5 mg 5 mg, Oral, 2 TIMES DAILY, First dose on Fri08/27/24 at 1045, Until Discontinued $ Given 08/30/2024 8:53 AM CDT 5 mg $ Given 08/29/2024 8:53 PM CDT 5 mg $ Given 08/29/2024 8:37 AM CDT 5 mg apixaban (Eliquis) tablet 5 mg 5 mg, Oral, 2 TIMES DAILY, First dose (after last reorder) on Fri08/31/24 at 2100, Until Discontinued $ Given 09/01/2024 1:25 PM CDT 5 mg $ Given 08/31/2024 9:23 PM CDT 5 mg carvedilol (Coreg) tablet 12.5 mg 12.5 mg, Oral, Once, 1 dose, On Fri08/26/24 at 2215, Take with food $ Given 08/26/2024 10:14 PM CDT 12.5 mg carvedilol (Coreg) tablet 12.5 mg 12.5 mg, Oral, 2 TIMES DAILY WITH MEALS, First dose on Fri08/27/24 at 0800, Until Discontinued, Take with food $ Given 08/27/2024 9:13 AM CDT 12.5 mg carvedilol (Coreg) tablet 12.5 mg 12.5 mg, Oral, Once, 1 dose, On Fri08/27/24 at 0930, Take with food $ Given 08/27/2024 10:09 AM CDT 12.5 mg carvedilol (Coreg) tablet 25 mg 25 mg, Oral, 2 TIMES DAILY WITH MEALS, First dose (after last modification) on Fri08/27/24 at 1800, Until Discontinued, Take with food $ Given 09/01/2024 1:28 PM CDT 25 mg $ Given 08/31/2024 5:07 PM CDT 25 mg $ Given 08/31/2024 9:19 AM CDT 25 mg dextrose IV 12.5 g 12.5 g, Intravenous, PRN, Other, Bedside Glucose less than 70 mg/dL -If NOT able to eat and/or NPO and with IV Access, Starting on 08/28/24 at 1100, Until Fri09/01/24 at 1759, If NOT able to eat and/or NPO and with IV Access: For Bedside Glucose 54-69 mg/dL give 12.5 g Dextrose IV STAT For Bedside Glucose LESS than 54 mg/dl verify with a second Bedside Glucose (from a different site) and give 25 g Dextrose IV STAT Re-check and Re-treat blood glucose EVERY , 10-25 minutes until blood glucose GREATER than or equal to 80 mg/dl. NOTIFY PROVIDER OF HYPOGLYCEMIC EVENT. dextrose IV 25 g 25 g, Intravenous, PRN, Other, Bedside Glucose less than 70 mg/dL -If NOT able to eat and/or NPO and with IV Access, Starting on 08/28/24 at 1100, Until Fri09/01/24 at 1759, If NOT able to eat and/or NPO and with IV Access: For Bedside Glucose LESS than 54 mg/dl verify with a second Bedside Glucose (from a different site) and give 25 g Dextrose IV STAT Re-check and Re-treat blood glucose EVERY - 10-25 minutes until blood glucose GREATER than or equal to 80 mg/dl. - If repeat bedside glucose 54-79 give 12.5 g Dextrose IV STAT NOTIFY PROVIDER OF HYPOGLYCEMIC EVENT. epoetin carlin-EPBX (Retacrit) injection 4,000 Units 4,000 Units, Intravenous, DIALYSIS EVERY FRI, FRI & FRI, First dose on Fri09/01/24 at 1200, Until Discontinued $ Given 09/01/2024 9:09 AM CDT 4,000 Units furosemide (Lasix) tablet 40 mg 40 mg, Oral, EVERY , AND FRI, First dose (after last modification) on Fri08/28/24 at 0900, Until Discontinued $ Given 08/31/2024 9:20 AM CDT 40 mg $ Given 08/28/2024 8:43 AM CDT 40 mg gabapentin (Neurontin) capsule 300 mg 300 mg, Oral, EVERY FRI, FRI AND FRI, First dose on Fri08/27/24 at 1700, Until Discontinued $ Given 08/30/2024 8:37 PM CDT 300 mg $ Given 08/27/2024 5:23 PM CDT 300 mg gadobutrol (Gadavist) injection Intravenous, CONTRAST ONCE, Starting on Fri08/27/24 at 0250, Until Fri08/29/24 at 0249 $ Given - Contrast 08/27/2024 2:11 AM CDT 10 mL gadoterate meglumine (Dotarem/Clariscan) injection Intravenous, CONTRAST ONCE, Starting on Fri08/29/24 at 1110, Until Fri08/31/24 at 1109 $ Given - Contrast 08/29/2024 11:10 AM CDT 20 mL glucagon (Glucagen) injection 1 mg 1 mg, Subcutaneous, PRN, Bedside Glucose less than 70 mg/dL - If NOT able to eat and/or NPO and withOUT IV Access, Starting on Fri08/28/24 at 1100, Until Fri09/01/24 at 1759, If NOT able to eat and/or NPO and NO IV Access: For Bedside glucose 54-69 mg/dL ? - Give 1 mg subcutaneous For Bedside Glucose LESS than 54 mg/dl ? -?verify with a second bedside glucose (from a different site) ? -?Give 1 mg subcutaneous Re-check and Re-treat blood glucose EVERY 10-25 minutes until blood glucose GREATER than or equal to 80 mg/dl.? NOTIFY PROVIDER OF HYPOGLYCEMIC EVENT. Reconstitute vial with 1 mL of sterile water for injection for a final concentration of 1 mg/mL; shake vial gently; use immediately and discard unused portion glucose (Diabetic Use) oral gel Oral, PRN, Other, Bedside Glucose less than 70 mg/dL, Starting on 08/28/24 at 1100, Until 09/01/24 at 1759, If able to take oral medications: For Bedside Glucose 54 - 69 mg/dL Give 15 grams of oral carbohydrates - 1 glucose gel (see MAR) If patient refuses glucose gel, then offer: - 4 ounces of fruit juice OR - 4 ounces non-diet soda OR - 8 ounces of fat-free milk For Bedside Glucose LESS than 54 mg/dL verify with a second Bedside Glucose (from a different site) - If pt is symptomatic, do not delay treatment - If accuracy of the POC glucose is in question, confirm glucose with a STAT laboratory test Give 30 grams of oral carbohydrates - 2 glucose gels (see MAR) If patient refuses glucose gel, then offer: - 8 ounces of fruit juice OR - 8 ounces non-diet soda OR - 16 ounces of fat-free milk Re-check and Re-treat blood glucose EVERY 10-25 minutes until blood glucose GREATER than or equal to 80 mg/dl. - If on recheck, bedside glucose 54-79 mg/dL - Give 15 grams of oral carbohydrates (see above for choices) NOTIFY PROVIDER OF HYPOGLYCEMIC EVENT. HYDROmorphone (Dilaudid) injection 0.2 mg 0.2 mg, Intravenous, EVERY 4 HOURS PRN, Severe Pain, Starting on 08/28/24 at 0921, Until 08/30/24 at 0720, Patient preference for lesser PRN pain meds may be honored when the patient requests a less strong medication, a lower dose, or a less intrusive route of administration when the lesser drug, dose and route have been ordered for the patient. This patient request must be documented in the MAR. If both oral and IV options are ordered for the same pain severity, give oral first unless patient cannot tolerate oral intake $ Given 08/30/2024 6:25 AM CDT 0.2 mg Left Hand $ Given 08/30/2024 2:21 AM CDT 0.2 mg Le ft Hand $ Given 08/29/2024 5:31 PM CDT 0.2 mg HYDROmorphone (Dilaudid) injection 0.2 mg 0.2 mg, Intravenous, EVERY 6 HOURS PRN, Severe Pain, Starting on 08/30/24 at 0720, Until 09/01/24 at 1759, Patient preference for lesser PRN pain meds may be honored when the patient requests a less strong medication, a lower dose, or a less intrusive route of administration when the lesser drug, dose and route have been ordered for the patient. This patient request must be documented in the MAR. If both oral and IV options are ordered for the same pain severity, give oral first unless patient cannot tolerate oral intake $ Given 09/01/2024 6:52 A M CDT 0.2 mg $ Given 09/01/2024 12:59 AM CDT 0.2 mg $ Given 08/31/2024 6:21 PM CDT 0.2 mg HYDROmorphone (Dilaudid) injection 0.5 mg 0.5 mg, Intravenous, NOW, 1 dose, On Heide 08/26/24 at 1700, Patient preference for lesser PRN pain meds may be honored when the patient requests a less strong medication, a lower dose, or a less intrusive route of administration when the lesser drug, dose and route have been ordered for the patient. This patient request must be documented in the MAR. If both oral and IV options are ordered for the same pain severity, give oral first unless patient cannot tolerate oral intake $ Given 08/26/2024 5:02 P M CDT 0.5 mg HYDROmorphone (Dilaudid) injection 0.5 mg 0.5 mg, Intravenous, EVERY 4 HOURS PRN, Severe Pain, Starting on Fri08/27/24 at 0927, Until 08/28/24 at 0918, Patient preference for lesser PRN pain meds may be honored when the patient requests a less strong medication, a lower dose, or a less intrusive route of administration when the lesser drug, dose and route have been ordered for the patient. This patient request must be documented in the MAR. If both oral and IV options are ordered for the same pain severity, give oral first unless patient cannot tolerate oral intake $ Given 08/28/2024 7:18 A M CDT 0.5 mg $ Given 08/27/2024 11:44 PM CDT 0.5 mg $ Given 08/27/2024 5:23 PM CDT 0.5 mg HYDROmorphone (Dilaudid) injection 1 mg 1 mg, Intravenous, NOW, 1 dose, On Fri08/27/24 at 0245, Patient preference for lesser PRN pain meds may be honored when the patient requests a less strong medication, a lower dose, or a less intrusive route of administration when the lesser drug, dose and route have been ordered for the patient. This patient request must be documented in the MAR. If both oral and IV options are ordered for the same pain severity, give oral first unless patient cannot tolerate oral intake $ Given 08/27/2024 2:43 AM CDT 1 mg insulin aspart (NovoLOG) pen 0-6 Units 0-6 Units, Subcutaneous, 3 TIMES DAILY WITH MEALS, First dose on 08/28/24 at 1200, Until Discontinued, Low Dose: Correction Insulin Bedside glucose should be done within 30-60 minutes of correction insulin administration. BG (mg/dL) Corrective Action LESS than 70 follow Hypoglycemic guidelines, 70-180 NO Correction insulin, 181-220 GIVE 2 units of insulin, 221-260 GIVE 3 units of insulin, 261-300 GIVE 4 units of insulin, 301-350 GIVE 5 units of insulin, Greater than 350 GIVE 6 units of insulin and notify physician. If the patient is NPO: DO NOT HOLD correction insulin If patient is eating meals and has orders for Mealtime insulin, combine and give at the same time. $ Given 08/31/2024 5:07 PM CDT 2 Units Abdominal Tissue $ Given 08/31/2024 1:31 PM CDT 4 Units Le ft Arm $ Given 08/31/2024 9:13 AM CDT 2 Units Ab dominal Tissue lidocaine (Lidoderm) 5 % patch 1 patch 1 patch, Administer over 12 Hours, EVERY 24 HOURS, First dose on Fri08/28/24 at 1000, Until Discontinued, Apply to shoulder and remove patch after a max of 12 hours of application within a 24 hour period. $ Applied 09/01/2024 1:24 PM CDT 1 patch Right Arm $ Applied 08/31/2024 9:13 AM CDT 1 patch Ri ght Arm $ Applied 08/30/2024 8:54 AM CDT 1 patch Se e Comments lidocaine (Xylocaine) 1 % injection Subcutaneous, ONCE PRN, Starting on Fri08/30/24 at 1446, Until Fri08/30/24 at 1446, Intra-op $ Given 08/30/2024 2:46 PM CDT 10 mL Other see comments lisinopril (Prinivil; Zestril) tablet 20 mg 20 mg, Oral, DAILY, First dose on Fri08/27/24 at 0900, Until Discontinued $ Given 08/27/2024 9:13 AM CDT 20 mg lisinopril (Prinivil; Zestril) tablet 20 mg 20 mg, Oral, Once, 1 dose, On Fri08/27/24 at 0930 $ Given 08/27/2024 10:10 AM CDT 20 mg lisinopril (Prinivil; Zestril) tablet 20 mg 20 mg, Oral, DAILY, First dose (after last modification) on Fri08/31/24 at 0930, Until Discontinued $ Given 09/01/2024 1:28 PM CDT 20 mg $ Given 08/31/2024 10:00 AM CDT 20 mg lisinopril (Prinivil; Zestril) tablet 40 mg 40 mg, Oral, DAILY, First dose (after last modification) on Fri08/28/24 at 0900, Until Discontinued $ Given 08/30/2024 8:53 AM CDT 40 mg $ Given 08/29/2024 8:37 AM CDT 40 mg $ Given 08/28/2024 8:43 AM CDT 40 mg losartan (Cozaar) tablet 25 mg 25 mg, Oral, NOW, 1 dose, On Heide 08/26/24 at 2215 $ Given 08/26/2024 10:14 PM CDT 25 mg methocarbamol (Robaxin) tablet 500 mg 500 mg, Oral, EVERY 8 HOURS, First dose on 08/28/24 at 0945, Until Discontinued $ Given 09/01/2024 1:28 PM CDT 500 mg $ Given 09/01/2024 5:35 AM CDT 500 mg $ Given 08/31/2024 9:23 PM CDT 500 mg oxyCODONE (immediate release) (Roxicodone) tablet 10 mg 10 mg, Oral, EVERY 4 HOURS PRN, Severe Pain, Starting on 08/28/24 at 0914, Until Fri08/31/24 at 0739, Patient preference for lesser PRN pain meds may be honored when the patient requests a less strong medication, a lower dose, or a less intrusive route of administration when the lesser drug, dose and route have been ordered for the patient. This patient request must be documented in the MAR. If both oral and IV options are ordered for the same pain severity, give oral first unless patient cannot tolerate oral intake $ Given 08/31/2024 12:52 AM CDT 10 mg $ Given 08/30/2024 9:01 AM CDT 10 mg $ Given 08/29/2024 8:53 PM CDT 10 mg oxyCODONE (immediate release) (Roxicodone) tablet 10 mg 10 mg, Oral, EVERY 4 HOURS PRN, Severe Pain, Starting on Tu08/31/24 at 0739, Until Fri09/01/24 at 1759, Patient preference for lesser PRN pain meds may be honored when the patient requests a less strong medication, a lower dose, or a less intrusive route of administration when the lesser drug, dose and route have been ordered for the patient. This patient request must be documented in the MAR. If both oral and IV options are ordered for the same pain severity, give oral first unless patient cannot tolerate oral intake $ Given 09/01/2024 1:27 PM CDT 10 mg $ Given 09/01/2024 5:35 AM CDT 10 mg $ Given 08/31/2024 9:23 PM CDT 10 mg oxyCODONE (immediate release) (Roxicodone) tablet 5 mg 5 mg, Oral, EVERY 4 HOURS PRN, Moderate Pain, Starting on Heide 08/26/24 at 2240, Until 08/28/24 at 0915, Patient preference for lesser PRN pain meds may be honored when the patient requests a less strong medication, a lower dose, or a less intrusive route of administration when the lesser drug, dose and route have been ordered for the patient. This patient request must be documented in the MAR. If both oral and IV options are ordered for the same pain severity, give oral first unless patient cannot tolerate oral intake $ Given 08/26/2024 10:48 PM CDT 5 mg oxyCODONE (immediate release) (Roxicodone) tablet 5 mg 5 mg, Oral, EVERY 4 HOURS PRN, Moderate Pain, Starting on Fri08/31/24 at 0739, Until Fri09/01/24 at 1759, Patient preference for lesser PRN pain meds may be honored when the patient requests a less strong medication, a lower dose, or a less intrusive route of administration when the lesser drug, dose and route have been ordered for the patient. This patient request must be documented in the MAR. If both oral and IV options are ordered for the same pain severity, give oral first unless patient cannot tolerate oral intake $ Given 08/31/2024 1:31 PM CDT 5 mg polyethylene glycol 3350 (Miralax) packet 17 g 17 g, Oral, DAILY, First dose on 08/28/24 at 1000, Until Discontinued, Mix in 8 ounces of water, juice, soda, coffee or tea prior to administration renal vitamin (Dialyvite) tablet 1 tablet 1 tablet, Oral, DAILY, First dose on Fri08/27/24 at 0900, Until Discontinued $ Given 09/01/2024 1:28 PM CDT 1 table t $ Given 08/31/2024 9:11 AM CDT 1 tablet $ Given 08/30/2024 8:53 AM CDT 1 tablet senna-docusate (Senokot-S) tablet 1 tablet 1 tablet, Oral, DAILY, First dose on 08/28/24 at 1000, Until Discontinued $ Given 08/31/2024 6:49 AM CDT 1 table t $ Given 08/29/2024 11:38 AM CDT 1 tablet sevelamer carbonate (Renvela) tablet 800 mg 800 mg, Oral, 3 TIMES DAILY WITH MEALS, First dose on Fri08/27/24 at 0800, Until Discontinued $ Given 09/01/2024 1:25 PM CDT 800 mg $ Given 08/31/2024 5:07 PM CDT 800 mg $ Given 08/31/2024 1:31 PM CDT 800 mg vancomycin (Vancocin) 750 mg in 0.9% NaCl IV 250 mL IVPB 750 mg, at 333.33 mL/hr, Intravenous, EVERY MON, WED AND FRI, First dose on Fri08/27/24 at 1800, Until Discontinued, Please administer after dialysis, Indication for anti-infective therapy: Documented infection, Site of anti-infective therapy: Blood $ New Bag/Syringe 09/01/2024 3:31 PM CDT 750 mg 333.33 mL/hr $ New Bag/Syringe 08/30/2024 8:46 PM CDT 750 mg 333.33 mL/hr $ New Bag/Syringe 08/27/2024 5:31 PM CDT 750 mg 333.33 mL/hr vancomycin (Vancocin) IV dose per pharmacy Does not apply, DIRECTED, Starting on Fri08/27/24 at 0726, Until Fri09/01/24 at 1759, Pharmacy will write all orders for vancomycin including dosages and when to draw levels. (IF DOSE IS DELAYED, CALL PHARMACY TO ADJUST TIMES. DO NOT GO BACK TO ORIGINAL SCHEDULE), Indication for anti-infective therapy: Suspected infection, Site of anti-infective therapy: Bone/Joint documented in this encounter Active and Recently Administered Medications Times are shown in CDT. Scheduled Medication Order 08/30/2024 08/31/2024 09/01/2024 0.9% NaCl injection 3 mL(Linked Group 1) 3 mL, Intracatheter, EVERY 8 HOURS, First dose on Fri08/27/24 at 0600, Until Discontinued, Flush peripheral IV catheter with 3 mL of normal saline every 8 hours. 0539 ($ Given - Provider: Danita Dutta RN)1227 ($ Given - Provider: Tammy Aviles, JIMMIE)2036 ($ Given - Provider: Danita Dutta RN) 0343 ($ Given - Provider: Danita Dutta RN - Comment: needed)0507 (Not Administered - Provider: Danita Dutta RN - Reason: Other - Comment: given early)1334 ($ Given - Provider: Tammy Aviles RN)2125 ($ Given - Provider: Solange Chowdhury RN) 0535 ($ Given - Provider: Solange Chowdhury RN)1532 ($ Given - Provider: Antony Murrell RN) acetaminophen (Tylenol) tablet 1,000 mg 1,000 mg, Oral, EVERY 8 HOURS, First dose on Fri08/28/24 at 0945, Until Discontinued, Patient preference for lesser PRN pain meds may be honored when the patient requests a less strong medication, a lower dose, or a less intrusive route of administration when the lesser drug, dose and route have been ordered for the patient. This patient request must be documented in the MAR. If both oral and IV options are ordered for the same pain severity, give oral first unless patient cannot tolerate oral intake 0539 ($ Given - Provider: Danita Dutta RN)1258 ($ Given - Provider: Tammy Aviles RN)2037 ($ Given - Provider: Danita Dutta RN) 0649 ($ Given - Provider: Danita Dutta RN)1331 ($ Given - Provider: Tammy Aviles RN)2123 ($ Given - Provider: Solange Chowdhury RN) 0535 ($ Given - Provider: Solange Chowdhury RN)1325 ($ Given - Provider: Antony Murrell RN) amLODIPine (Norvasc) tablet 10 mg (CANCELED) 10 mg, Oral, DAILY, First dose on Fri08/27/24 at 0900, Until Discontinued 0853 ($ Given - Provider: Tammy Aviles RN) 0917 (Not Administered - Provider: Tammy Aviles RN - Reason: See Comments - Comment: Held per MD Inocente, BP 102/68) amLODIPine (Norvasc) tablet 10 mg 10 mg, Oral, DAILY, First dose (after last modification) on Fri09/01/24 at 0900, Until Discontinued, Hold if SBP < 105 1328 ($ Given - Provider: Antony Murrell RN) apixaban (Eliquis) tablet 5 mg (CANCELED) 5 mg, Oral, 2 TIMES DAILY, First dose on Fri08/27/24 at 1045, Until Discontinued 0853 ($ Given - Provider: Tammy Aviles RN) apixaban (Eliquis) tablet 5 mg 5 mg, Oral, 2 TIMES DAILY, First dose (after last reorder) on Fri08/31/24 at 2100, Until Discontinued 2122 ($ Given - Provider: Solange Chowdhury RN) 1325 ($ Given - Provider: Antony Murrell, JIMMIE) carvedilol (Coreg) tablet 25 mg 25 mg, Oral, 2 TIMES DAILY WITH MEALS, First dose (after last modification) on Fri08/27/24 at 1800, Until Discontinued, Take with food 0853 ($ Given - Provider: Tammy Aviles RN)2036 ($ Given - Provider: Danita Dutta, JIMMIE) 09 ($ Given - Provider: Tammy Aviles RN - Comment: give swati Brower MD)170 ($ Given - Provider: Tammy Aviles RN) 1328 ($ Given - Provider: Antony Murrell, JIMMIE) epoetin carlin-EPBX (Retacrit) injection 4,000 Units 4,000 Units, Intravenous, DIALYSIS EVERY FRI, FRI & FRI, First dose on Fri09/01/24 at 1200, Until Discontinued 09 ($ Given - Provider: Keisha Garner RN - Comment: given during hd tx)1200 (Due) furosemide (Lasix) tablet 40 mg 40 mg, Oral, EVERY , AND FRI, First dose (after last modification) on Fri08/28/24 at 0900, Until Discontinued 919 ($ Given - Provider: Tammy Aviles RN - Comment: give swati Brower MD) gabapentin (Neurontin) capsule 300 mg 300 mg, Oral, EVERY FRI, FRI AND FRI, First dose on Fri08/27/24 at 1700, Until Discontinued 2036 ($ Given - Provider: Danita Dutta RN) insulin aspart (NovoLOG) pen 0-6 Units 0-6 Units, Subcutaneous, 3 TIMES DAILY WITH MEALS, First dose on Fri08/28/24 at 1200, Until Discontinued, Low Dose: Correction Insulin Bedside glucose should be done within 30-60 minutes of correction insulin administration. BG (mg/dL) Corrective Action LESS than 70 follow Hypoglycemic guidelines, 70-180 NO Correction insulin, 181-220 GIVE 2 units of insulin, 221-260 GIVE 3 units of insulin, 261-300 GIVE 4 units of insulin, 301-350 GIVE 5 units of insulin, Greater than 350 GIVE 6 units of insulin and notify physician. If the patient is NPO: DO NOT HOLD correction insulin If patient is eating meals and has orders for Mealtime insulin, combine and give at the same time. 0821 (Not Administered - Provider: Tammy Aviles RN - Reason: Per Administration Instructions - Comment: BG 140)1244 (Not Administered - Provider: Tammy Aviles RN - Reason: Per Administration Instructions - Comment: BG 161)2216 (Not Administered - Provider: Danita Dutta RN - Reason: Other - Comment: on dialysis) 0913 ($ Given - Provider: Tammy Aviles RN)1331 ($ Given - Provider: Tammy Aviles RN)1707 ($ Given - Provider: Tammy Aviles RN) 0810 (Not Administered - Provider: Antony Murrell RN - Reason: Other - Comment: Not required per correctional scale)1328 (Not Administered - Provider: Antony Murrell RN - Reason: Other - Comment: Not required per correctional scale) lidocaine (Lidoderm) 5 % patch 1 patch 1 patch, Administer over 12 Hours, EVERY 24 HOURS, First dose on Fri08/28/24 at 1000, Until Discontinued, Apply to shoulder and remove patch after a max of 12 hours of application within a 24 hour period. 0854 ($ Applied - Provider: Tammy Aviles RN - Comment: R shoulder)8 (Removed - Provider: Danita Dutta RN) 0913 ($ Applied - Provider: Tammy Aviles RN)2126 (Removed - Provider: Solange Chowdhury RN) 1324 ($ Applied - Provider: Antony Murrell RN) lisinopril (Prinivil; Zestril) tablet 20 mg 20 mg, Oral, DAILY, First dose (after last modification) on Fri08/31/24 at 0930, Until Discontinued 1000 ($ Given - Provider: Tammy Aviles RN) 1328 ($ Given - Provider: Antony Murrell RN) lisinopril (Prinivil; Zestril) tablet 40 mg (CANCELED) 40 mg, Oral, DAILY, First dose (after last modification) on 08/28/24 at 0900, Until Discontinued 0853 ($ Given - Provider: Tammy Aviles RN) 0920 (Not Administered - Provider: Tammy Aviles RN - Reason: Discontinued by physician) methocarbamol (Robaxin) tablet 500 mg 500 mg, Oral, EVERY 8 HOURS, First dose on 08/28/24 at 0945, Until Discontinued 0540 ($ Given - Provider: Danita Dutta RN)1258 ($ Given - Provider: Tammy Aviles RN)2038 ($ Given - Provider: Danita Dutta RN) 0649 ($ Given - Provider: Danita Dutta RN)1331 ($ Given - Provider: Tammy Aviles RN)2123 ($ Given - Provider: Solange Chowdhury RN) 0535 ($ Given - Provider: Solange Chowdhury RN)1328 ($ Given - Provider: Antony Murrell RN) polyethylene glycol 3350 (Miralax) packet 17 g 17 g, Oral, DAILY, First dose on 08/28/24 at 1000, Until Discontinued, Mix in 8 ounces of water, juice, soda, coffee or tea prior to administration 0853 (Not Administered - Provider: Tammy Aviles RN - Reason: Refused-Patient) 0911 (Not Administered - Provider: Tammy Aviles RN - Reason: Refused-Patient) 1332 (Not Administered - Provider: Antony Murrell RN - Reason: Refused-Patient) renal vitamin (Dialyvite) tablet 1 tablet 1 tablet, Oral, DAILY, First dose on Fri08/27/24 at 0900, Until Discontinued 0853 ($ Given - Provider: Tammy Aviles RN) 0911 ($ Given - Provider: Tammy Aviles RN) 1328 ($ Given - Provider: Antony Murrell RN) senna-docusate (Senokot-S) tablet 1 tablet 1 tablet, Oral, DAILY, First dose on 08/28/24 at 1000, Until Discontinued 0853 (Not Administered - Provider: Tammy Aviles RN - Reason: Refused-Patient) 0649 ($ Given - Provider: Danita Dutta RN - Comment: pt request. she has been nrefusing and was not able to have bm for almost a week now)0912 (Not Administered - Provider: Tammy Aviles RN - Reason: See Comments - Comment: given by night RN at 0649) 1333 (Not Administered - Provider: Antony Murrell RN - Reason: Refused-Patient) sevelamer carbonate (Renvela) tablet 800 mg 800 mg, Oral, 3 TIMES DAILY WITH MEALS, First dose on Fri08/27/24 at 0800, Until Discontinued 0853 ($ Given - Provider: Tammy Aviles RN)1258 ($ Given - Provider: Tammy Aviles RN)2037 ($ Given - Provider: Danita Dutta RN) 0911 ($ Given - Provider: Tammy Aviles RN)1331 ($ Given - Provider: Tammy Aviles RN)1707 ($ Given - Provider: Tammy Aviles RN) 1325 ($ Given - Provider: Antony Murrell RN)1333 (Not Administered - Provider: Antony Murrell RN - Reason: Meal time altered - Comment: patient in dialysis for 8 am dose, administered late) vancomycin (Vancocin) 750 mg in 0.9% NaCl IV 250 mL IVPB 750 mg, at 333.33 mL/hr, Intravenous, EVERY MON, FRI AND FRI, First dose on Fri08/27/24 at 1800, Until Discontinued, Please administer after dialysis, Indication for anti-infective therapy: Documented infection, Site of anti-infective therapy: Blood 2045 ($ New Bag/Syringe - Provider: Danita Dutta RN)2133 (Stopped - Provider: Danita Dutta RN) 1531 ($ New Bag/Syringe - Provider: Antony Murrell RN)1620 (Stopped - Provider: Antony Murrell RN) vancomycin (Vancocin) IV dose per pharmacy Does not apply, DIRECTED, Starting on Fri08/27/24 at 0726, Until Fri09/01/24 at 1759, Pharmacy will write all orders for vancomycin including dosages and when to draw levels. (IF DOSE IS DELAYED, CALL PHARMACY TO ADJUST TIMES. DO NOT GO BACK TO ORIGINAL SCHEDULE), Indication for anti-infective therapy: Suspected infection, Site of anti-infective therapy: Bone/Joint PRN Medication Order 08/30/2024 08/31/2024 09/01/2024 0.9% NaCl injection 1-10 mL(Linked Group 1) 1-10 mL, Intracatheter, PRN, Other, peripheral line flush, Starting on [place] 08/26/24 at 2325, Until 09/01/24 at 1759, Flush peripheral IV catheter with 1-10 mL of normal saline before and after medications and prn to clear blood from the line or to verify patency. 0949 ($ Given - Provider: Tammy Aviles RN) dextrose IV 12.5 g(Linked Group 2) 12.5 g, Intravenous, PRN, Other, Bedside Glucose less than 70 mg/dL -If NOT able to eat and/or NPO and with IV Access, Starting on 08/28/24 at 1100, Until Fri09/01/24 at 1759, If NOT able to eat and/or NPO and with IV Access: For Bedside Glucose 54-69 mg/dL give 12.5 g Dextrose IV STAT For Bedside Glucose LESS than 54 mg/dl verify with a second Bedside Glucose (from a different site) and give 25 g Dextrose IV STAT Re-check and Re-treat blood glucose EVERY , 10-25 minutes until blood glucose GREATER than or equal to 80 mg/dl. NOTIFY PROVIDER OF HYPOGLYCEMIC EVENT. dextrose IV 25 g(Linked Group 2) 25 g, Intravenous, PRN, Other, Bedside Glucose less than 70 mg/dL -If NOT able to eat and/or NPO and with IV Access, Starting on 08/28/24 at 1100, Until Fri09/01/24 at 1759, If NOT able to eat and/or NPO and with IV Access: For Bedside Glucose LESS than 54 mg/dl verify with a second Bedside Glucose (from a different site) and give 25 g Dextrose IV STAT Re-check and Re-treat blood glucose EVERY - 10-25 minutes until blood glucose GREATER than or equal to 80 mg/dl. - If repeat bedside glucose 54-79 give 12.5 g Dextrose IV STAT NOTIFY PROVIDER OF HYPOGLYCEMIC EVENT. glucagon (Glucagen) injection 1 mg(Linked Group 2) 1 mg, Subcutaneous, PRN, Bedside Glucose less than 70 mg/dL - If NOT able to eat and/or NPO and withOUT IV Access, Starting on 08/28/24 at 1100, Until Fri09/01/24 at 1759, If NOT able to eat and/or NPO and NO IV Access: For Bedside glucose 54-69 mg/dL ? - Give 1 mg subcutaneous For Bedside Glucose LESS than 54 mg/dl ? -?verify with a second bedside glucose (from a different site) ? -?Give 1 mg subcutaneous Re-check and Re-treat blood glucose EVERY 10-25 minutes until blood glucose GREATER than or equal to 80 mg/dl.? NOTIFY PROVIDER OF HYPOGLYCEMIC EVENT. Reconstitute vial with 1 mL of sterile water for injection for a final concentration of 1 mg/mL; shake vial gently; use immediately and discard unused portion glucose (Diabetic Use) oral gel Oral, PRN, Other, Bedside Glucose less than 70 mg/dL, Starting on 08/28/24 at 1100, Until Fri09/01/24 at 1759, If able to take oral medications: For Bedside Glucose 54 - 69 mg/dL Give 15 grams of oral carbohydrates - 1 glucose gel (see MAR) If patient refuses glucose gel, then offer: - 4 ounces of fruit juice OR - 4 ounces non-diet soda OR - 8 ounces of fat-free milk For Bedside Glucose LESS than 54 mg/dL verify with a second Bedside Glucose (from a different site) - If pt is symptomatic, do not delay treatment - If accuracy of the POC glucose is in question, confirm glucose with a STAT laboratory test Give 30 grams of oral carbohydrates - 2 glucose gels (see MAR) If patient refuses glucose gel, then offer: - 8 ounces of fruit juice OR - 8 ounces non-diet soda OR - 16 ounces of fat-free milk Re-check and Re-treat blood glucose EVERY 10-25 minutes until blood glucose GREATER than or equal to 80 mg/dl. - If on recheck, bedside glucose 54-79 mg/dL - Give 15 grams of oral carbohydrates (see above for choices) NOTIFY PROVIDER OF HYPOGLYCEMIC EVENT. HYDROmorphone (Dilaudid) injection 0.2 mg (CANCELED) 0.2 mg, Intravenous, EVERY 4 HOURS PRN, Severe Pain, Starting on 08/28/24 at 0921, Until Fri08/30/24 at 0720, Patient preference for lesser PRN pain meds may be honored when the patient requests a less strong medication, a lower dose, or a less intrusive route of administration when the lesser drug, dose and route have been ordered for the patient. This patient request must be documented in the MAR. If both oral and IV options are ordered for the same pain severity, give oral first unless patient cannot tolerate oral intake 0221 ($ Given - Provider: Danita Dutta RN)0625 ($ Given - Provider: Danita Dutta RN) HYDROmorphone (Dilaudid) injection 0.2 mg 0.2 mg, Intravenous, EVERY 6 HOURS PRN, Severe Pain, Starting on Fri08/30/24 at 0720, Until Fri09/01/24 at 1759, Patient preference for lesser PRN pain meds may be honored when the patient requests a less strong medication, a lower dose, or a less intrusive route of administration when the lesser drug, dose and route have been ordered for the patient. This patient request must be documented in the MAR. If both oral and IV options are ordered for the same pain severity, give oral first unless patient cannot tolerate oral intake 1226 ($ Given - Provider: Tammy Aviles RN)2036 ($ Given - Provider: Danita Dutta RN) 0342 ($ Given - Provider: Danita Dutta RN)1000 ($ Given - Provider: Tammy Aviles RN)1821 ($ Given - Provider: Tammy Aviles RN) 0059 ($ Given - Provider: Solange Chowdhury RN)0652 ($ Given - Provider: Solange Chowdhury RN) lidocaine (Xylocaine) 1 % injection (COMPLETED) Subcutaneous, ONCE PRN, Starting on Fri08/30/24 at 1446, Until Fri08/30/24 at 1446, Intra-op 1446 ($ Given - Provider: Chris Moya MD - Comment: right shoulder site of asp. 10ml on tray) oxyCODONE (immediate release) (Roxicodone) tablet 10 mg (CANCELED) 10 mg, Oral, EVERY 4 HOURS PRN, Severe Pain, Starting on 08/28/24 at 0914, Until Fri08/31/24 at 0739, Patient preference for lesser PRN pain meds may be honored when the patient requests a less strong medication, a lower dose, or a less intrusive route of administration when the lesser drug, dose and route have been ordered for the patient. This patient request must be documented in the MAR. If both oral and IV options are ordered for the same pain severity, give oral first unless patient cannot tolerate oral intake 0901 ($ Given - Provider: Tammy Aviles RN) 0052 ($ Given - Provider: Gena Power RN) oxyCODONE (immediate release) (Roxicodone) tablet 10 mg(Linked Group 3) 10 mg, Oral, EVERY 4 HOURS PRN, Severe Pain, Starting on Fri08/31/24 at 0739, Until Fri09/01/24 at 1759, Patient preference for lesser PRN pain meds may be honored when the patient requests a less strong medication, a lower dose, or a less intrusive route of administration when the lesser drug, dose and route have been ordered for the patient. This patient request must be documented in the MAR. If both oral and IV options are ordered for the same pain severity, give oral first unless patient cannot tolerate oral intake 1331 (See Alternative - Provider: Tammy Aviles RN)2123 ($ Given - Provider: Solange Chowdhury RN) 0535 ($ Given - Provider: Solange Chowdhury RN)1327 ($ Given - Provider: Antony Murrell RN) oxyCODONE (immediate release) (Roxicodone) tablet 5 mg(Linked Group 3) 5 mg, Oral, EVERY 4 HOURS PRN, Moderate Pain, Starting on Fri08/31/24 at 0739, Until Fri09/01/24 at 1759, Patient preference for lesser PRN pain meds may be honored when the patient requests a less strong medication, a lower dose, or a less intrusive route of administration when the lesser drug, dose and route have been ordered for the patient. This patient request must be documented in the MAR. If both oral and IV options are ordered for the same pain severity, give oral first unless patient cannot tolerate oral intake 1331 ($ Given - Provider: Tammy Aviles RN)2123 (See Alternative - Provider: Solange Chowdhury RN) 8848 (See Alternative - Provider: Solange Chodwhury RN)0092 (See Alternative - Provider: Antony Murrell RN) Linked Groups Order Group 1: SALINE LOCK, INSERT AND MAINTAIN (CANCELED) Routine, CONTINUOUS, Starting on [place] 08/26/24 at 2330, Until Specified, New collection, Task Completed: Yes And 0.9% NaCl injection 3 mLJump to med 3 mL, Intracatheter, EVERY 8 HOURS, First dose on Fri08/27/24 at 0600, Until Discontinued, Flush peripheral IV catheter with 3 mL of normal saline every 8 hours. And 0.9% NaCl injection 1-10 mLJump to med 1-10 mL, Intracatheter, PRN, Other, peripheral line flush, Starting on [place] 08/26/24 at 2325, Until Fri09/01/24 at 1759, Flush peripheral IV catheter with 1-10 mL of normal saline before and after medications and prn to clear blood from the line or to verify patency. Group 2: dextrose IV 12.5 gJump to med 12.5 g, Intravenous, PRN, Other, Bedside Glucose less than 70 mg/dL -If NOT able to eat and/or NPO and with IV Access, Starting on 08/28/24 at 1100, Until Fri09/01/24 at 1759, If NOT able to eat and/or NPO and with IV Access: For Bedside Glucose 54-69 mg/dL give 12.5 g Dextrose IV STAT For Bedside Glucose LESS than 54 mg/dl verify with a second Bedside Glucose (from a different site) and give 25 g Dextrose IV STAT Re-check and Re-treat blood glucose EVERY , 10-25 minutes until blood glucose GREATER than or equal to 80 mg/dl. NOTIFY PROVIDER OF HYPOGLYCEMIC EVENT. Or dextrose IV 25 gJump to med 25 g, Intravenous, PRN, Other, Bedside Glucose less than 70 mg/dL -If NOT able to eat and/or NPO and with IV Access, Starting on 08/28/24 at 1100, Until Fri09/01/24 at 1759, If NOT able to eat and/or NPO and with IV Access: For Bedside Glucose LESS than 54 mg/dl verify with a second Bedside Glucose (from a different site) and give 25 g Dextrose IV STAT Re-check and Re-treat blood glucose EVERY - 10-25 minutes until blood glucose GREATER than or equal to 80 mg/dl. - If repeat bedside glucose 54- 79 give 12.5 g Dextrose IV STAT NOTIFY PROVIDER OF HYPOGLYCEMIC EVENT. Or glucagon (Glucagen) injection 1 mgJump to med 1 mg, Subcutaneous, PRN, Bedside Glucose less than 70 mg/dL - If NOT able to eat and/or NPO and withOUT IV Access, Starting on Fri08/28/24 at 1100, Until Fri09/01/24 at 1759, If NOT able to eat and/or NPO and NO IV Access: For Bedside glucose 54-69 mg/dL ? - Give 1 mg subcutaneous For Bedside Glucose LESS than 54 mg/dl ? -?verify with a second bedside glucose (from a different site) ? -?Give 1 mg subcutaneous Re-check and Re-treat blood glucose EVERY 10-25 minutes until blood glucose GREATER than or equal to 80 mg/dl.? NOTIFY PROVIDER OF HYPOGLYCEMIC EVENT. Reconstitute vial with 1 mL of sterile water for injection for a final concentration of 1 mg/mL; shake vial gently; use immediately and discard unused portion Group 3: oxyCODONE (immediate release) (Roxicodone) tablet 5 mgJump to med 5 mg, Oral, EVERY 4 HOURS PRN, Moderate Pain, Starting on Fri08/31/24 at 0739, Until Fri09/01/24 at 1759, Patient preference for lesser PRN pain meds may be honored when the patient requests a less strong medication, a lower dose, or a less intrusive route of administration when the lesser drug, dose and route have been ordered for the patient. This patient request must be documented in the MAR. If both oral and IV options are ordered for the same pain severity, give oral first unless patient cannot tolerate oral intake Or oxyCODONE (immediate release) (Roxicodone) tablet 10 mgJump to med 10 mg, Oral, EVERY 4 HOURS PRN, Severe Pain, Starting on Fri08/31/24 at 0739, Until Fri09/01/24 at 1759, Patient preference for lesser PRN pain meds may be honored when the patient requests a less strong medication, a lower dose, or a less intrusive route of administration when the lesser drug, dose and route have been ordered for the patient. This patient request must be documented in the MAR. 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
--- OUTSIDE RECORDS SUMMARY | 2024-11-17 02:58 | XMS_ITS | Encounter Summary ---
Author Organization [facility] Address [address] 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
--- OUTSIDE RECORDS SUMMARY | 2024-11-17 02:58 | XMS_ITS | Encounter Summary ---
Author Organization [facility] Address [address] [facility] [address] [place] [address] Care Team Providers Care [employer] Operator Name Role Phone Cherise Patrick PA-C Primary Care Provider [phone] Encounter Details Date Type Department Care Team (Late st Contact Info) Description 10/11/2024 3:30 PM INSULATION INSPECTOR Office Visit [facility] - Infectious Disease [address] [facility] [place] [phone] Kash Ha MD [address] [place] [address] MRSA bacteremia (Primary Dx); 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HCC); ESRD (end stage renal disease) on dialysis (HCC); ESR raised; CRP elevated Social History Tobacco Use Types Packs/Day Years [...] Date Recorded PHQ2 TOTAL SCORE 0 06/10/2023 [facility] - Occupational Stress Questionnaire Answer Date [...] Comments Blood Pressure 136/86 10/11/2024 4:17 PM INSULATION INSPECTOR Pulse 92 10/11/2024 4:17 PM INSULATION INSPECTOR Temperature 36.5 ??C (97.7 ??F) 10/11/2024 4:17 PM CS T Respiratory Rate 18 10/11/2024 4:17 PM INSULATION INSPECTOR Oxygen Saturation 98% 10/11/2024 4:17 PM INSULATION INSPECTOR Inhaled Oxygen Concentration - - Weight 112.9 kg (249 lb) 10/11/2024 4:17 PM INSULATION INSPECTOR Height 170.2 cm (5' 7 ) 10/11/2024 4:17 PM INSULATION INSPECTOR Body Mass Index 39 10/11/2024 4:17 PM INSULATION INSPECTOR documented in this encounter Functional Status Functional [...] No 07/26/2024 documented as of this encounter Progress Notes * Kash Ha MD - 10/15/2024 12:34 PM CST OUTPATIENT ID CLINIC PROGRESS NOTE Last visit on 08/23/2024 HPI: Duration of admission: 07/25/2024 - 08/09/2024 and 08/26-09/01/2024 Gay Canales is a 33 year old female with PMH of recurrent MRSA bacteremia, essential hypertension, type 2 diabetes mellitus, hyperlipidemia, ESRD on HD TTS- via THC, obesity, HFpEF, PAD, right lower extremity non-healing ischemic ulcers, right foot chronic ulcer with prior right calcaneal osteomyelitis, 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 She was discharged on 6 weeks of IV vancomycin from the first negative blood culture,EOT 09/10/2024. ID also planned to repeat CT of the left shoulder towards the end of therapy to reassess persistent fluid collection. Hospital course reviewed. 07/26/2024 right shoulder aspiration; cultures grew MRSA 07/27/2024 right shoulder arthrotomy, drainage of septic shoulder with irrigation and debridement, right shoulder synovectomy; cultures grew MRSA 07/30/2024 MATT showed no vegetations Regarding a follow-up with orthopedics on 09/01/2024, patient will not be able to make that appointment as she is on dialysis Friday and Friday. Dr. Chapman stated that the patient is for anincision check and does not need to be seen in the office, if she has any issues or concerns later she may call the office to come in to be seen. For the left humerus fluid collection saw on CT, unclear if there is any underlying infectious process at this time. 08/23/2024 Patient presented to ID clinic for follow-up. She is here today with her sister. She has been getting HD now on M-W-F (changed from TTS). She denies any F/C/N/V/D. Still making urine but no dysuria. She stated that since after discharge, she has never been able to contact her PCP and has not gotten a lot of her medications refilled. She contacted the PCP's office many times by leaving s. She said that she got only 4 meds refilled from her hospitalization. Her SBP at HD today was in the 200 range. She usually has headaches after HD. She can see only movements in both eyes. No new weakness or numbness today. She confirmed that she has been getting vancomycin with HD. 08/16/2024 vancomycin random level 10.4. She stated that around a week ago, she noticed a bump at the right anterior distal clavicle which is new after discharge. She denies any pain but concerns if this is related to her DVT or not. Her surgical sites are c/d/I. For her chronic wound at the right heel, her sister has been doing daily dressing changes. No odor noted. Because of the induration at the right anterior distal clavicle, I ordered CT chest with contrast to reevaluated that lesion MONICA but because of her insurance it is, it was difficult to get it scheduled quickly. She then presented to ED and was readmitted from 08/26-09/01/24 because of worsening right arm pain. No fevers, chills, nausea, vomiting, diarrhea, rashes, itching, shortness breath, chest pain, cough but had some night sweats. X-ray right shoulder showed worsening right humeral head/neck deformity. Soft tissue gas seen on axillary view. Right shoulder as read by orthopedics- cell count 3700, 1mil RBCs culture-no growth. 08/27/2024 MRI C/T/L spine showed no signs of infection. 08/29/2024 MRI right shoulder showed a 7.6 x 4.0 x 5.7 fluid collection containing gas in the anterior soft tissues compatible with abscess. She was seen by ID on 08/27/2024, and eventually ID recommended to extend IV vancomycin for 2 more weeks through 09/24/2024 and consider oral doxycycline after the IV is done. Previous infection history: February 2024 admitted to [facility] for MRSA bacteremia with left shoulder septic [...] at nursing facility. May 2024 admitted to [facility] for suspected infectious left shoulder bursitis; ID treated empirically with cefepime and vancomycin for 4 weeks Right ankle and hindfoot osteomyelitis 04/15/2023 right [...] foot showed chronic changes, no acute process Interval History: Patient missed an appointment with ID clinic on 09/22/2024 and is here today for follow-up. She still has IR drainage catheter in the right clavicle area. She is here today with her sister. This is a stated that it was draining but for the past 1 week, the amount of drainage has decreased. They did not check the amount of the drainage for the past week. They ran out of [employer] last week and try to get a hold of IR but unable to. No follow-up with IR that we know of. She denies any fevers, chills, nausea, vomiting, diarrhea, dysuria, dysphagia. Antimicrobial History: Current Antibiotics: Vancomycin IV with HD through 09/24/2024, goal trough 15-20 Prior Antibiotics At [facility] IV vancomycin (07/26 - present) Prior Antibiotics At [facility] IV cefazolin (07/27) - intra-op IV cefepime (07/26 - 07/27) IV azithromycin (07/26 - 07/27 ) Past Medical History: Past Medical History Past Medical History: Diagnosis Date Essential (primary) hypertension Heart failure (HCC) Type 2 diabetes mellitus without complications (HCC) Past Surgical History: Past Surgical History Past Surgical History: Procedure Laterality Date DEBRIDEMENT Right 07/27/2024 Right; RIGHT SHOULDER INCISION AND DEBRIDEMENT LEG AMPUTATION ABOVE KNEE Left 12/05/2022 Left; AMPUTATION ABOVE LEFT KNEE Leg Amputation, Below Knee Left 12/02/2022 Left; LEFT ANKLE DISARTICULATION LEVEL 2 @ 2220 Social History: Reviewed. Pt lives with her sister now. Family History: Family History Family History Problem Relation Name Age of Onset Diabetes - Type 2 Mother Hypertension Mother Diabetes - Type 2 Father Hypertension Father Diabetes - Type 2 Paternal Grandmother Hypertension Paternal Grandmother Current Medications: Medications Current Outpatient Medications Medication Sig acetaminophen (Tylenol) 500 MG tablet Take 1 (one) tablet by mouth every 4 hours Maximum allowable Acetaminophen amount = 4 Grams (4000 mg) / 24 hours. Alcohol Swabs (Alcohol Prep) 70 % USE ONE SWAB TO CLEAN SKIN FOUR TIMES DAILY BEFORE TESTING amLODIPine (Norvasc) 10 MG tablet Take 1 (one) tablet by mouth once daily apixaban (Eliquis) 5 MG tablet Take 2 (two) tablets by mouth 2 times daily for 4 days, THEN 1 (one)tablet 2 times daily for 90 days. bisacodyl (Dulcolax) 10 MG suppository Insert 1 (one) suppository into the rectum once daily as needed for Constipation blood glucose ([employer] Verio) test strip USE ONE STRIP TO TEST BLOOD SUGAR FOUR TIMES DAILY Blood Glucose Monitoring Suppl ([employer] Verio Reflect) w/Device KIT Use 1 kit 4 times daily USE METER TO CHECK BLOOD GLUCOSE FOUR TIMES DAILY Reasons: CALL [facility] WHEN DELIVERING X4364 carvedilol (Coreg) 12.5 MG tablet Take 1 (one) tablet by mouth 2 times daily with morning and evening meal FeroSul 325 (65 Fe) MG tablet Take 1 (one) tablet by mouth daily with breakfast furosemide (Lasix) 40 MG tablet Take 1 (one) tablet by mouth every Friday, Friday & Friday gabapentin (Neurontin) 300 MG capsule Take 1 (one) capsule by mouth every Friday, Friday & Friday Gauze Pads & Dressings (Gauze Dressing) 4 X4 PADS Use 1 Pad every 2 days Apply to right shoulder, change dressing every 48 hours, sooner if needed. Lancets (Wikidot PLUS 33G EXTRA FINE LANCET) USE ONE LANCET TO PRICK FINGER FOUR TIMES DAILY FOR BLOOD GLUCOSE TESTING lisinopril (Prinivil; Zestril) 20 MG tablet Take 1 (one) tablet by mouth once daily melatonin 3 MG tablet Take 1 (one) tablet by mouth nightly as needed for Insomnia oxyCODONE, immediate release, (Roxicodone) 10 MG tablet Take 1 (one) tablet by mouth every 4 hours as needed for Pain renal vitamin (Dialyvite) tablet Take 1 (one) tablet by mouth once daily senna (Senokot) 8.6 MG tablet Take 1 (one) tablet by mouth once daily sevelamer carbonate (Renvela) 800 MG Take 1 (one) tablet by mouth 3 times daily with meals vancomycin 750 mg in 0.9% NaCl IV 0.9 % 250 mL 750 (seven hundred fifty) mg by Intravenous route every Friday, , & Friday for 35 days No current facility-administered medications for this visit. Medication Allergies: Allergies No Known Allergies Review of Systems: A 10-point ROS was done and pertinent positives and negatives are as mentioned in the HPI, otherwise, all other systems are negative. Objective T 97.7 P 92 RR 18 BP 136/86 BW 112.9 kg. 98% RA PHYSICAL EXAM General: A & O x3, NAD, appropriate mood, not in pain. In a wheelchair. HEENT: PERRL, EOMI, moist mucus membranes, no icterus, no oral thrush. Neck: No LAD, JVD; trachea midline Heart: RRR, normal S1, S2 without murmur Lungs: CTAB, no wheezes, crackles, rhonchi. No use of accessory breathing muscles. GI: soft, +BS, non-tender, non-distended, no hepatosplenomegaly Musculoskeletal: full ROM at both UE and LE with 5/5 strength Neurologic: No focal deficits, CN 2-12 grossly intact Extremities: no clubbing, cyanosis, or edema. Post Left AKA. Per patient, stump looks okay. Right heel is covered with dressing. Surgical sites at the right shoulder- healed well, c/d/I. No TTP. IR drainage catheter at the right anterior clavicle-light yellowish fluid seen in the bag. Some crusts seen at the exit site of the IR drainage catheter but no signs of infection. Skin: Warm and dry, no rashes or bruising noted. : deferred Line: left IJ THC in place, covered with dressing. Labs: 09/22/2024 CMP-within normal with except ALP 187 albumin 3.3 creatinine 6.45 CBC WBC 9 hemoglobin 11.4 platelet 398 Hepatitis B antigen-negative Hepatitis B antibody-positive Vancomycin random level 12 Vitamin D 14 08/16/2024 vancomycin random level 10.4 BUN 33 calcium 8.1 phosphorus 5 hemoglobin 9.3 CBC: Recent Labs Component Name 08/07/24 0547 08/06/24 0402 08/05/24 0431 WBC 12.1* 17.2* 12.5* RBC 3.24* 2.98* 3.00* HGB 9.5* 8.6* 8.6* HCT 31.3* 28.9* 29.2* MCV 96.6 97.0 97.3 BMP: Recent Labs Component Name 08/09/24 0945 08/07/24 0547 08/06/24 0402 05/25/24 0643 05/24/24 0625 02/23/24 0737 02/22/24 2214 NA 139 138 135* - 139 - 136 CL 100 98 96* - 104 - 100 CO2 24 26 29 - 26 - 26 BUN 30* 33* 18 - 33* - 21 CREATININE 6.80* 6.99* 4.60* - 3.64* - 4.88* ALB 2.1* 2.1* 2.1* - 1.9* - 1.5* PROT - 7.9 - - 7.2 - 8.1 - = values in this interval not displayed. CrCl cannot be calculated (Unknown ideal weight.). LFTs: Recent Labs Component Name 08/07/24 0547 05/24/24 0625 02/22/24 2214 12/02/22 1955 08/25/22 0315 08/24/22 1404 08/24/22 0725 ALKPHOS 106 170* 221* - - - - ALT <5* 25 11 - - - - AST 10 14 7 - - - - ALBUMIN - - - - 2.0* 2.1* 1.7* - = values in this interval not [...] = values in this interval not displayed. Imagin08/29/2024 MRI RIGHT SHOULDER WWO CONTRAST IMPRESSION: 1.Extensive bone marrow edema in the [...] and enhancement compatible with cellulitis and myositis. 08/27/2024 MRI CERVICAL, THORACIC, LUMBAR SPINE WWO CONTRAST [...] could be secondary to known septic arthritis. 08/26/2024 XR RIGHT SHOULDER FINDINGS/IMPRESSION: Deformity at the right humeral head/neck [...] Possible airspace disease within the bilateral lungs. MRI Cervical spine wwo contrast 07/30/2024 1. Normal MRI of the cervical spine. 2. An incompletely imaged T2/STIR hyperintense lesion in the apex of the left thorax/superior mediastinum measuring approximately 2.3 x 4.0 cm on sagittal T2 and STIR sequences, corresponds to a cluster of mildly enlarged lymph nodes seen on the chest CT dated 07/27/2024. VENOUS DOPPLER RIGHT UPPER EXTREMITY 07/30/2024 - DVT Right IJ - Superficial thrombus right cephalic vein CT FOOT RIGHT W CONTRAST 07/28/2024 Wound at the plantar aspect of the hindfoot overlying the calcaneal tuberosity. Changes in the underlying calcaneus compatible with sequela of osteomyelitis. TRANSTHORACIC ECHO 07/28/2024 Summary * The left ventricle is [...] index of 36 ml/m2 by BP MOD. * The pulmonary artery systolic pressure is normal, 22 mmHg. * No significant valvular abnormalities. * No evidence of vegetation on this study. If clinical suspicion remains high for endocarditis, would suggest transesophageal echocardiogram. CT CHEST ABDOMEN PELVIS W CONTRAST 07/27/2024 1.A 2.9 cm right subscapularis abscess with adjacent osteomyelitis of the right humeral head and septic arthritis. There is a surgical drain likely in the glenohumeral joint space. 2.An ill-defined fluid collection adjacent to the left humerus without a well- defined rim which mayrepresent an early developing abscess versus phlegmon. 3.Cardiomegaly with pulmonary edema. 4.Dendriform pulmonary ossifications in the lung bases 08/06/2024 IR tunneled HD catheter placement Pathology: 07/26/2024 Shoulder joint fluid Acute inflammatory infiltrate, Intracellular microorganisms, minimal blood contamination Microbiology: Blood culture: 07/25/2024: 2/2 MRSA 07/26/2024: 2/2 MRSA 07/28/2024: 2/2 MRSA 07/29/2024: 1/2 MRSA 07/30/2024: 2/2 No growth 07/31/2024: 1/1 Staph hominis--> likely contaminant 08/01/2024: No growth x 2 08/02/2024: No growth 08/04/2024: No growth x 2 08/25/2024: No growth x 2 Right shoulder aspiration 08/30/2024 Gram stain: Light PMNs. No organisms seen. Culture-no growth for aerobic, anaerobic 07/26/2024: Gram stain: Heavy PMNs, Light GPCs Culture: MRSA- sensitive to clindamycin, doxycycline, vancomycin, resistant to oxacillin, Bactrim. Inducible clindamycin resistance is negative Fluid: 219,660 nucleated cells, 97% neutrophils. Assessment and Plan: MRSA bacteremia, negative TTE and MATT for vegetation. Right shoulder pyogenic arthritis/osteomyelitis. 07/26/2024 right shoulder aspiration; cultures grew MRSA 07/27/2024 right shoulder arthrotomy, drainage of septic shoulder with irrigation and debridement, right shoulder synovectomy; cultures grew MRSA. 07/27: CT Chest abd pelvis with 2.9 cm subscapularis abscess with adjacent osteomyelitis of right humeral head and septic arthritis. Ortho considers likely post operative fluid collection. Regarding a follow-up with orthopedics on 09/01/2024, patient will not be able to make that appointment as she is on dialysis Friday and Friday. Dr. Chapman stated that the patient is for anincision check and does not need to be seen in the office, if she has any issues or concerns later she may call the office to come in to be seen. 3. Right anterior distal clavicle fluid collection/sterile abscess, s/p IR drainage catheter placement on 08/30/2024. Still draining some light yellowish fluid but had decrease in amount a week ago. Her sister has not been documenting the amount of drainage. 4. Left humerus fluid collection, unclear etiology, seen on CT chest on 07/27/2024. 5. Cervical spine pain, resolved 6. Right heel ulcer, chronic. Wound care daily. 7. History of osteomyelitis right calcaneous. Vascular intervention right foot osteomyelitis - patient declined during the admission in August 2024. Her sister is doing dressing changes daily. 8. ESRD on HD TTS via LEFT IJ THC 9. Central line associated acute DVT right IJ. Superficial thrombus right cephalic vein. Not on Eliquis. Probably finished the course. 9. HTN, controlled. On medication. Follow-up with PCP. PLAN: -Start doxycycline 100 mg p.o. twice daily. Patient was advised not to take it with cation such as calcium, magnesium, multivitamin, Tums. -Home infusion company was notified about stopping vancomycin - CBC, ESR, CRP today -Follow-up on 11/22/2024 -IR service was contacted regarding the drainage catheter and flushes. New phone number for IR was given to the sister. I spent 30 minutes in the care of this patient, and over 50% of that time was spent in counseling and coordination of care. Pt was seen on 10/11/2024. Kash Ha MD Infectious Disease Attending Addendum: Labs from today: CBC WBC 9.0 hemoglobin 13.6 platelet 398 with normal differential CMP -Within normal limit except creatinine 4.01 sodium 135 potassium 5.8 CO2 21 glucose 161 albumin3.1 ALP 207 CRP 0.5, normal ESR 87, was >130 on 08/25/2024 Patient is on hemodialysis. LATION INSPECTOR * Ksai Shaw MA - 10/11/2024 4:51 PM CST Venipuncture to LAC. Pressure held and bandage/coban applied. LATION INSPECTOR documented in this encounter Plan of Treatment Upcoming Encounters Date Type Department Care Team (Late st Contact Info) Description 11/22/2024 1:30 PM INSULATION INSPECTOR Office Visit [facility] - Infectious Disease [address] [place] [address] [place] [phone] Kash Ha MD [address] [place] [address] documented as of this encounter Procedures Procedure Name Priority Date/Time Associated Diagnosis Comments C-REACTIVE PROTEIN Routine 10/11/2024 4: 43 PM INSULATION INSPECTOR 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HCC) MRSA bacteremia ERYTHROCYTE SEDIMENTATION RATE Routine 10/11/2024 4:43 PM INSULATION INSPECTOR 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HCC) MRSA bacteremia CBC W AUTO DIFFERENTIAL Routine 10/11/2024 4:43 PM INSULATION INSPECTOR 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HCC) MRSA bacteremia COMPREHENSIVE METABOLIC PANEL Routine 10/11/2024 4:43 PM INSULATION INSPECTOR 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HCC) MRSA bacteremia documented in this encounter Results * (ABNORMAL) ERYTHROCYTE SEDIMENTATION RATE (10/11/2024 4:43 PM INSULATION INSPECTOR) Erythrocyte Sedimentation Rate Westergren 87(H) 0 - 20 MM/HR 10/11/2024 5:27 PM INSULATION INSPECTOR [facility] Blood BLOOD SPECIMEN / Unknown Lab Venipuncture / Unknown 10/11/2024 4:43 PM INSULATION INSPECTOR 10/11/2024 5:02 PM INSULATION INSPECTOR Kash Ha MD LAB - HEMATOLOGY ORD ERABLES [facility] [address] [place] [address] [phone] * C-REACTIVE PROTEIN (10/11/2024 4:43 PM INSULATION INSPECTOR) C-Reactive Protein 0.5 <=0.5 mg/dL 10/11/2024 5:45 PM INSULATION INSPECTOR [facility] Blood BLOOD SPECIMEN / Unknown Lab Venipuncture / Unknown 10/11/2024 4:43 PM INSULATION INSPECTOR 10/11/2024 5:02 PM INSULATION INSPECTOR Kash Ha MD LAB - CHEMISTRY DIV[facility] OLVERA [facility] [address] [place] [address], [facility] [phone] * (ABNORMAL) COMPREHENSIVE METABOLIC PANEL (10/11/2024 4:43 PM INSULATION INSPECTOR) BUN 18 7 - 26 mg/dL 10/11/2024 5:45 PM [facility] Creatinine 4.01(H) 0.56 - 0.96 mg/dL 10/11/2024 5:45 PM [facility] Sodium 135(L) 136 - 145 mmol/L 10/11/2024 5:45 PM [facility] Potassium 5.8(H) 3.5 - 4.5 mmol/L 10/11/2024 5:45 PM [facility] Chloride 107 98 - 107 mmol/L 10/11/2024 5:45 PM [facility] CO2 21(L) 22 - 29 mmol/L 10/11/2024 5:45 PM [facility] Glucose 161(H) 70 - 99 mg/dL 10/11/2024 5:45 PM [facility] Calcium 8.7 8.4 - 10.2 mg/dL 10/11/2024 5:45 PM [facility] Protein Total 8.3 6.0 - 8.3 g/dL 10/11/2024 5:45 PM [facility] Albumin 3.1(L) 3.4 - 5.0 g/dL 10/11/2024 5:45 PM [facility] Bilirubin Total 0.3 0.2 - 1.2 mg/dL 10/11/2024 5:45 PM [facility] Alkaline Phosphatase 207(H) 40 - 150 U/L 10/11/2024 5:45 PM [facility] ALT 18 5 - 55 U/L 10/11/2024 5:45 PM [facility] AST 14 5 - 34 U/L 10/11/2024 5:45 PM [facility] Anion Gap 7 6 - 16 10/11/2024 5:45 PM [facility] BUN/Creatinine Ratio 4(L) 7 - 23 10/11/2024 5:45 PM [facility] Osmolality Calculated 285 275 - 295 mOsm/kg 10/11/2024 5:45 PM [facility] Albumin/Globulin Ratio 0.6(L) 1.1 - 2.3 10/11/2024 5:45 PM [facility] eGFR by CKD-EPI 15(L) >=90 mL/min/1.7 3 m2 10/11/2024 5:45 PM [facility] Blood BLOOD SPECIMEN / Unknown Lab Venipuncture / Unknown 10/11/2024 4:43 PM INSULATION INSPECTOR 10/11/2024 5:02 PM INSULATION INSPECTOR Kash Ha MD LAB - CHEMISTRY [facility] OL[facility] [address] [place] [address], [facility] [phone] * (ABNORMAL) CBC WITH DIFFERENTIAL (10/11/2024 4:43 PM INSULATION INSPECTOR) WBC 9.0 4.0 - 10.7 x10E9/L 10/11/2024 5:17 PM [facility] RBC Count 4.49 3.90 - 5.20 x10E12/L 10/11/2024 5:17 PM [facility] Hemoglobin 13.6 11.9 - 15.8 g/dL 10/11/2024 5:17 PM [facility] Hematocrit 45.0 34.8 - 46.1 % 10/11/2024 5:17 PM [facility] MCV 100.2(H) 80.0 - 98.0 fL 10/11/2024 5:17 PM [facility] MCH 30.3 26.7 - 33.6 pg 10/11/2024 5:17 PM [facility] MCHC 30.2(L) 31.7 - 36.3 g/dL 10/11/2024 5:17 PM [facility] RDW-CV 15.4(H) 11.3 - 14.8 % 10/11/2024 5:17 PM [facility] Platelet Count 398 150 - 420 x10E9/L 10/11/2024 5:17 PM [facility] MPV 9.2 7.8 - 11.4 fL 10/11/2024 5:17 PM [facility] Neutrophil % 65.3 41.0 - 74.0 % 10/11/2024 5:17 PM [facility] Lymphocyte % 19.8 17.0 - 47.0 % 10/11/2024 5:17 PM [facility] Monocyte % 6.8 3.0 - 11.0 % 10/11/2024 5:17 PM [facility] Eosinophil % 6.8 0.0 - 7.0 % 10/11/2024 5:17 PM [facility] Basophil % 0.4 0.0 - 1.6 % 10/11/2024 5:17 PM [facility] Immature Granulocytes % 0.9 0.0 - 1.0 % 10/11/2024 5:17 PM [facility] Neutrophil Absolute 5.85 1.60 - 7.50 x10E9/L 10/11/2024 5:17 PM [facility] Lymphocyte Absolute 1.77 1.00 - 4.40 x10E9/L 10/11/2024 5:17 PM [facility] Monocyte Absolute 0.61 0.15 - 1.00 x10E9/L 10/11/2024 5:17 PM [facility] Eosinophil Absolute 0.61(H) 0.00 - 0.60 x10E9/L 10/11/2024 5:17 PM [facility] Basophil Absolute 0.04 0.00 - 0.13 x10E9/L 10/11/2024 5:17 PM [facility] Blood BLOOD SPECIMEN / Unknown Lab Venipuncture / Unknown 10/11/2024 4:43 PM INSULATION INSPECTOR 10/11/2024 5:02 PM [facility] Kash Ha MD LAB - HEMATOLOGY ORD ERABLES [facility] [address] [place] [address], [facility] [phone] documented in this encounter Visit Diagnoses Diagnosis MRSA bacteremia- Primary Bacteremia 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HCC) Pyogenic arthritis, shoulder region ESRD (end stage renal disease) on dialysis (HCC) End stage renal disease ESR raised Elevated sedimentation rate CRP elevated Elevated C-reactive protein (CRP) documented in this encounter Additional Health Concerns Infection Onset Date Last Indicated Resolved Time MRSA Hx 05/24/2024 05/24/2024 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
--- OUTSIDE RECORDS SUMMARY | 2024-11-17 02:58 | XMS_ITS | Encounter Summary ---
Author Organization [facility] Health Address [address] [place] [address] Care Team Providers Care Blood Bank Laboratory Professional Name Role Phone Cherise Patrick PA-C Primary Care Provider [phone] Encounter Details Date Type Department Care Team (Latest Contact Info) Description 10/11/2024 Travel Social History Tobacco Use Types Packs/Day [...] Date Recorded PHQ2 TOTAL SCORE 0 06/10/2023 [facility] [place] of Occupat ional Health - Occupational Stress [...] place to sleep or slept in a group home (including now)? 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
--- OUTSIDE RECORDS SUMMARY | 2024-11-17 02:58 | XMS_ITS | Encounter Summary ---
Author Organization [facility] Health Address [address] [place] [place] [address] Care Team Providers Care Space Systems Operations Manager Name Role Phone Cherise Patrick PA-C Primary Care Provider [phone] Reason for Visit * Reason Comments Kidney Transplant Evaluation Encounter Details Date Type Department Care Team (Late st Contact Info) Description 09/23/2024 Telephone [facility] TRANS[facility]ANT [address] [place] [address] Fiona Schneider, RN Kidney Transplant Evaluation Social History Tobacco Use Types Packs/Day Years [...] Date Recorded PHQ2 TOTAL SCORE 0 06/10/2023 [place] of Occupat ional Health - Occupational Stress [...] to sleep or slept in a senior living (including now)? No 07/26/2024 Sex and Gender [...] as of this encounter Progress Notes * Fiona Schneider RN - 09/23/2024 1:36 PM CST Spoke to pt and updated status. Aware that we are not able to open referral at this time. Will sendletter. 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
--- OUTSIDE RECORDS SUMMARY | 2024-11-17 02:58 | XMS_ITS | Encounter Summary ---
Author Organization [facility] Health Address [address] [facility] [place] [address] Care Team Providers Care Mold Presser Name Role Phone Cherise Patrick PA-C Primary Care Provider Encounter Details Date Type Department Care Team (Late st Contact Info) Description 09/17/2024 Telephone [facility] - [facility]ious Disease [address] [facility] [place] [phone] Kash Ha MD [address] [place] [address] Social History Tobacco Use Types Packs/Day Years [...] Date Recorded PHQ2 TOTAL SCORE 0 06/10/2023 [facility] of Occupat ional Health - Occupational [...] encounter Miscellaneous Notes * Telephone Encounter - Kash Ha MD - 09/17/2024 3:10 PM CST Called pt's sister back and left a VM for her to call back to clarify what saline is for. If it is saline to flush IR right shoulder drain, then IR should be notified and order it. PATROL documented in this encounter Plan of Treatment Upcoming Encounters Date Type Department Care Team (Late st Contact Info) Description 11/22/2024 1:30 PM MINE PATROL Office Visit [facility] - Infectious Disease [address] [place] [address], 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
--- OUTSIDE RECORDS SUMMARY | 2024-11-17 02:58 | XMS_ITS | Encounter Summary ---
Author Organization [facility] Address [address] [facility] [place] [address] Care Team Providers Care Lead Trainer Name Role Phone Cherise Patrick PA-C Primary Care Provider Reason for Visit * Reason Comments Transitions Of Care Encounter Details Date Type Department Care Team (Latest Contact Info) Description 09/02/2024 Transitional Care [facility] COORDINATION [address] [place] [address] Ewa Blake, RN Transitions Of [...] Date Recorded PHQ2 TOTAL SCORE 0 06/10/2023 [place] of Occupat ional Health - Occupational Stress [...] place to sleep or slept in a intermediate (including now)? No 07/26/2024 Sex and Gender [...] Telephone Encounter - Ewa Blake RN - 09/02/2024 9:34 AM CDT Transition Senior Occupational Therapist (TCC) Terri Blake RN post discharge follow-up contact by telephone: Patient with recent IP discharge from [facility] on 09/01 and had Readmission Risk Assessment (score of 30).As such, Patient receiving 1-2 week follow-up call. This TCC contacted sister by telephone ([phone]) to complete pt post- discharge follow-up contact. 1) How are you feeling? Per sister things are going well 2) How is your mobility? Wc baseline 3) New concerns or problems? Pain med not sent home w pt 4) Have you had to go the ER for any reason? no 5) Any questions about your discharge diagnosis and instructions? no 6) Do you have a follow up appointment made? Pt has PCP sep 06 7) Do you currently have home health, any questions about home care? na 8) Have you filled all of your RX's? Sent w pt 9) Any questions or concerns that we can help you with? Contact info given to sister Sister verbalized that pt is feeling well. TCC inquired re: whether Patient has had any problems orquestions since dc. Sister indicated pt was able to obtain all of her medications without incident.Sister indicated pt is taking all medications as prescribed. no symptoms related to dc meds. Sisterdenied any current medical and psychosocial needs. Patient sister denied any unscheduled visits to the ER, hospital, or urgent care since discharge. Sister denied any questions related to diet, medications, or condition at this time. TCC encouraged sister to call this law writer with questions, concerns, barriers to care, and/or additional resources if needed. Sister verbalized understanding and agreement with plan. TCC will continue to provide post-discharge monitoring for 30 days post-discharge with target end date of program and intervention(s) set for 09/30. no follow-up needs identified or indicated at this time. Call Duration: 15 min Ewa Blake RN, MSN Transition Senior Occupational Therapist Office: [phone] 09/02/2024 documented in this encounter Plan of Treatment Upcoming Encounters Date Type Department Care Team (Late st Contact Info) Description 11/22/2024 1:30 PM FAMILY RESOURCE MANAGEMENT SPECIALIST Office Visit [facility] - [facility]ious Disease [address] [facility] [place] [address] Kash Ha MD [address] [place] [address] documented as of this encounter Visit Diagnoses Not on filedocumented in this encounter Additional Health Concerns Infection Onset Date Last Indicated Resolved Time 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
--- OUTSIDE RECORDS SUMMARY | 2024-11-17 02:58 | XMS_ITS | Encounter Summary ---
Author Organization [facility] Health Address [address] [place] [address] Care Team Providers Care Pickling Drum Operator Name Role Phone Cherise Patrick PA-C Primary Care Provider Encounter Details Date Type Department Care Team (Latest Contact Info) Description 08/25/2024 Travel Social History Tobacco Use Types Packs/Day [...] Date Recorded PHQ2 TOTAL SCORE 0 06/10/2023 [facility] [place] of Occupat ional Health - Occupational Stress [...] place to sleep or slept in a assisted (including now)? No 07/26/2024 Sex and Gender [...] st Contact Info) Description 11/22/2024 1:30 PM CARE TECHNICIAN Office Visit [facility] - [facility]ious Disease [address] 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
--- OUTSIDE RECORDS SUMMARY | 2024-11-17 02:58 | XMS_ITS | Encounter Summary ---
Author Organization [facility] Health Address [address] [facility] [place] [address] Care Team Providers Care Billing Coordinator Name Role Phone Cherise Patrick PA-C Primary Care Provider [phone] Encounter Details Date Type Department Care Team (Late st Contact Info) Description 08/24/2024 Orders Only [facility] - [facility]ious [facility] [address] [facility] [place] [phone] Kash Ha MD [address] [place] [address] Hypertension, unspecified type Social History Tobacco Use Types Packs/Day Years [...] Date Recorded PHQ2 TOTAL SCORE 0 06/10/2023 [facility] of Occupat ional Health - Occupational [...] Progress Notes * Kash Ha MD - 08/24/2024 2:53 PM CDT I called and faxed H and P, discharge summary, and ID clinic note to PCP's office, . Her PCP will be back tomorrow. I spoke with Danyelle Hendrix ERICK in [facility] and requested them to fax her last medication list to ID office. I then reviewed the H and P and DC summary from the previous hospitalization and due to her elevated BP yesterday, I did a refill Norvasc, Lisinopril, and Coreg prescription for one month and confirmed that with [facility] pharmacist. For her Eliquis, I will talk with her PCP because it will need a prior authorization. For the rest of her medications, I will defer that to her PCP. documented in this encounter Plan of Treatment Upcoming Encounters Date Type Department Care Team (Late st Contact Info) Description 11/22/2024 1:30 PM SIGNAL TECHNICIAN Office Visit [facility] - Infectious Disease [address] [place] [address], [facility] [place] [address] Kash Ha MD 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
--- OUTSIDE RECORDS SUMMARY | 2024-11-17 02:58 | XMS_ITS | Encounter Summary ---
Author Organization [facility] Address [address] [place] [address] Care Team Providers Care Piece Work Checker Name Role Phone Cherise Patrick PA-C Primary Care Provider [phone] Reason for Visit * Reason Comments Chest Pain Pt BIBEMS from home for mid-sternal CP x1d from [facility]. Intermittent pain, no alleviating or aggravating factors. Pt states she was recently hospitalized for septic arthritis R shoulder, pt states arm is hurting again and she is noticing swelling. After [facility]09 she has been unable to fill HTN and blood thinner rx. Pre dialysis bp ~220/110, partial dialysis completed. L AKA and blind. Encounter Details Date Type Department Care Team (Late st Contact Info) Description 08/25/2024 6:33 PM CDT - 08/25/2024 6:34 PM CDT Emergency [facility] [address] [place] [id number] Discharge Disposition: Left Against Medical Advice/Discontinued Care Social History Tobacco Use Types Packs/Day [...] Date Recorded PHQ2 TOTAL SCORE 0 06/10/2023 [facility] - Occupational [...] Sign Reading Time Taken Comments Blood Pressure 163/118 08/25/2024 4:20 PM CDT Pulse 91 08/25/2024 4:20 PM CDT Temperature 36.3 ??C (97.4 ??F) 08/25/2024 4:20 PM CD T Respiratory Rate 18 08/25/2024 4:20 PM CDT Oxygen Saturation 99% 08/25/2024 4:20 PM CDT Inhaled Oxygen Concentration - - Weight 112.5 kg (248 lb) 08/25/2024 9:09 AM CDT Height 170.2 cm (5' 7 ) 08/25/2024 9:09 AM CDT Body Mass Index 38.84 08/25/2024 9:09 AM CDT documented in this encounter Functional Status [...] No 07/26/2024 documented as of this encounter Medications at Time of Discharge Medication Sig Dispensed Refills Start Date End Date Alcohol Swabs (Alcohol Prep) 70 % USE ONE SWAB TO CLEAN SKIN FOUR TIMES DAILY BEFORE TESTING 100 Each 12/12/2022 blood glucose (OneTouch Verio) test stripIndications:Hyp erglycemia USE ONE STRIP TO TEST BLOOD SUGAR FOUR TIMES DAILY 100 strip 12/12/2022 Blood Glucose Monitoring Suppl (OneTouch Verio Reflect) w/Device KITIndications:CALL [facility] WHEN DELIVERING X4364 Use 1 kit 4 times daily USE METER TO CHECK BLOOD GLUCOSE FOUR TIMES DAILY Reasons: CALL [facility] WHEN DELIVERING X4364 1 kit 12/12/2022 gabapentin (Neurontin) 300 MG capsule Take 1 (one) capsule by mouth every Friday, Friday & Friday 30 capsule 08/09/2024 Gauze Pads & Dressings (Gauze Dressing) 4 X4 PADS Use 1 Pad every 2 days Apply to right shoulder, change dressing every 48 hours, sooner if needed. 24 Each 1 08/09/2024 Lancets (ONETOUCH DELICA PLUS 33G EXTRA FINE LANCET)Indications:H yperglycemia USE ONE LANCET TO PRICK FINGER FOUR TIMES DAILY FOR BLOOD GLUCOSE TESTING 100 Each 12/12/2022 lisinopril (Prinivil; Zestril) 20 MG tabletIndications:Hy pertension, unspecified type Take 1 (one) tablet by mouth once daily 30 tablet 08/24/2024 renal vitamin (Dialyvite) tablet Take 1 (one) tablet by mouth once daily 02/28/2024 sevelamer carbonate (Renvela) 800 MG Take 1 (one) tablet by mouth 3 times daily with meals 02/28/2024 acetaminophen (Tylenol) 500 MG tablet Take 1 (one) tablet by mouth every 4 hours Maximum allowable Acetaminophen amount = 4 Grams (4000 mg) / 24 hours. 03/02/2024 09/01/2024 amLODIPine (Norvasc) 10 MG tabletIndications:Hy pertension, unspecified type Take 1 (one) tablet by mouth once daily 30 tablet 08/24/2024 09/01/2024 apixaban (Eliquis) 5 MG tablet Take 2 (two) tablets by mouth 2 times daily for 4 days, THEN 1 (one) tablet 2 times daily for 90 days. 196 tablet 08/09/2024 09/01/2024 bisacodyl (Dulcolax) 10 MG suppository Insert 1 (one) suppository into the rectum once daily as needed for Constipation 02/28/2024 09/01/2024 carvedilol (Coreg) 12.5 MG tabletIndications:Hy pertension, unspecified type Take 1 (one) tablet by mouth 2 times daily with morning and evening meal 60 tablet 08/24/2024 09/01/2024 FeroSul 325 (65 Fe) MG tablet Take 1 (one) tablet by mouth daily with breakfast 08/08/2022 09/01/2024 furosemide (Lasix) 40 MG tablet Take 1 (one) tablet by mouth every Friday, Friday & Friday 0 05/23/2023 09/01/2024 melatonin 3 MG tablet Take 1 (one) tablet by mouth nightly as needed for Insomnia 05/09/2023 09/01/2024 oxyCODONE, immediate release, (Roxicodone) 10 MG tabletIndications:Py ogenic arthritis of right shoulder region, due to unspecified organism (HCC) Take 1 (one) tablet by mouth every 4 hours as needed for Pain 12 tablet 08/09/2024 09/01/2024 senna (Senokot) 8.6 MG tablet Take 1 (one) tablet by mouth once daily 02/28/2024 09/01/2024 vancomycin 750 mg in 0.9% NaCl IV 0.9 % 250 mL 750 (seven hundred fifty) mg by Intravenous route every Friday, , & Friday for 35 days 08/06/2024 09/01/2024 documented as of this encounter ED Notes * Radha Shukla RN - 08/25/2024 6:01 PM CDT Pt approached desk stating they were going to leave. Pt signed AMA form and form uploaded into chart. Pt exited ED WR * Francy Rodgers - 08/25/2024 4:21 PM CDT Vitals updated. Pt accounted for. * Radha Shukla RN - 08/25/2024 9:08 AM CDT Pt BIBEMS from home for mid-sternal CP x1d from [facility]. Intermittent pain, no alleviating or aggravating factors. Pt states she was recently hospitalized for septic arthritis R shoulder, pt states arm is hurting again and she is noticing swelling. After dc from [facility] on 08/09 she has been unable to fill HTN and blood thinner rx. Pre dialysis bp ~220/110, partial dialysis completed. L AKA and blind. Past Medical History: Diagnosis Date Essential (primary) hypertension Heart failure (HCC) Type 2 diabetes mellitus without complications (HCC) Past Surgical History: Procedure Laterality Date DEBRIDEMENT Right 07/27/2024 Right; RIGHT SHOULDER INCISION AND DEBRIDEMENT LEG AMPUTATION ABOVE KNEE Left 12/05/2022 Left; AMPUTATION ABOVE LEFT KNEE Leg Amputation, Below Knee Left 12/02/2022 Left; LEFT ANKLE DISARTICULATION LEVEL 2 @ 2220 documented in this encounter Plan of Treatment Upcoming Encounters Date Type Department Care Team (Late st Contact Info) Description 11/22/2024 1:30 PM LEAD PERSON Office Visit [facility] - Infectious Disease [address] [facility] [place] [address] Kash Ha MD [address] [place] [address] documented as of this encounter Procedures Procedure Name Priority Date/Time Associated Diagnosis Comments ERYTHROCYTE SEDIMENTATION RATE STAT 08/25/2024 12:18 PM CDT SARS-COV-2 (COVID-19)+INFLU A+B PCR RAPID STAT 08/25/2024 10:05 AM CDT CULTURE BLOOD Timed 08/25/2024 10:05 AM CDT C-REACTIVE PROTEIN MONICA 08/25/2024 9: 50 AM CDT CULTURE BLOOD Timed 08/25/2024 9:50 AM CDT CBC W AUTO DIFFERENTIAL STAT 08/25/2024 9:50 AM CDT COMPREHENSIVE METABOLIC PANEL STAT 08/25/2024 9:50 AM CDT MAGNESIUM BLOOD STAT 08/25/2024 9:50 AM CDT LIPASE BLOOD STAT 08/25/2024 9:50 AM CDT documented in this encounter Results * (ABNORMAL) ERYTHROCYTE SEDIMENTATION RATE (08/25/2024 12:18 PM CDT) Erythrocyte Sedimentation Rate Binhergren >130(H) 0 - 20 MM/HR 08/25/2024 12:30 PM CDT [facility] Blood BLOOD SPECIMEN / Unknown Venipuncture / Unknown 08/25/2024 12:18 PM CDT 08/25/2024 12:22 PM CDT Penny Morris MD LAB - HEMATOLOGY ORD ERABLES [facility] [address] [place] [address], [facility] [phone] * CULTURE BLOOD (08/25/2024 10:05 AM CDT) Culture No growth day 5 CHARLES 08/30/2024 2:31 PM CDT [facility] Blood PERIPHERAL BLOOD / Unknown Venipuncture / Unknown 08/25/2024 10:05 AM CDT 08/25/2024 10:18 AM CDT Penny Morris MD LAB - MICROBIOLOGY O RDERABLES Performing Organization Address City/[facility]/ZIP Co de Phone Number [facility] [address] [place] [address], [facility] [phone] * SARS-COV-2 (COVID-19)+INFLU A+B PCR RAPID (08/25/2024 10:05 AM CDT) COVID-19 PCR Not detected Not detected 08/25/20 10:55 AM CDT [facility] Influenza A Rapid RASHAWN Not Detected Not Detected 08/25/2024 10:55 AM CDT [facility] Influenza B RASHAWN Rapid Not Detected Not Detected 08/25/2024 10:55 AM CDT [facility] Microbiology SPECIMEN FROM NASOPHARYNGEAL STRUCTURE / Unknown Collection / Unknown 08/25/2024 10:05 AM CDT 08/25/2024 10:18 AM CDT [facility] - 08/25/2024 10:55 AM CDT Influenza assay [...] acid amplification assay performance was validated by [facility]. This test has been authorized by [...] Morris MD LAB - MICROBIOLOGY O DARRELL [facility] [address] [place] [address], [facility] [phone] * CULTURE BLOOD (08/25/2024 9:50 AM CDT) Culture No growth day 5 CHARLES 08/30/2024 2:31 PM CDT [facility] Blood PERIPHERAL BLOOD / Unknown Venipuncture / Unknown 08/25/2024 9:50 AM CDT 08/25/2024 10:18 AM CDT Penny Morris MD LAB - MICROBIOLOGY O DARRELL [facility] [address] [place] [address], [facility] [phone] * LIPASE BLOOD (08/25/2024 9:50 AM CDT) Lipase 57 8 - 78 U/L 08/25/2024 10:58 AM CDT [facility] Blood BLOOD SPECIMEN / Unknown Venipuncture / Unknown 08/25/2024 9:50 AM CDT 08/25/2024 10:20 AM CDT Narrative [facility] - 08/25/2024 10:58 AM CDT Lipase results from the Garcia Alinity analyzer may not be comparable with other methodologies. Penny Morris MD LAB - CHEMISTRY [facility] [address] [address], [place] [phone] * MAGNESIUM BLOOD (08/25/2024 9:50 AM CDT) Magnesium 1.8 1.6 - 2.6 mg/dL 08/25/2024 10:58 AM CDT [facility] Blood BLOOD SPECIMEN / Unknown Venipuncture / Unknown 08/25/2024 9:50 AM CDT 08/25/2024 10:20 AM CDT Penny Morris MD LAB - CHEMISTRY [facility] Performing Organization Address City/[facility]/ZIP Co de Phone Number [address] [address], [place] [phone] * (ABNORMAL) C-REACTIVE PROTEIN (08/25/2024 9:50 AM CDT) C-Reactive Protein 1.5(H) <=0.5 mg/dL 08/25/2024 10:58 AM CDT [facility] Blood BLOOD SPECIMEN / Unknown Venipuncture / Unknown 08/25/2024 9:50 AM CDT 08/25/2024 10:20 AM CDT Penny Morris MD LAB - CHEMISTRY [facility] [address] [address], [place] [phone] * (ABNORMAL) COMPREHENSIVE METABOLIC PANEL (08/25/2024 9:50 AM CDT) BUN 27(H) 7 - 26 mg/dL 08/25/2024 10:58 AM [facility] Creatinine 3.61(H) 0.56 - 0.96 mg/dL 08/25/2024 10:58 AM [facility] Sodium 134(L) 136 - 145 mmol/L 08/25/2024 10:58 AM [facility] Potassium 4.5 3.5 - 4.5 mmol/L 08/25/2024 10:58 AM [facility] Chloride 108(H) 98 - 107 mmol/L 08/25/2024 10:58 AM [facility] CO2 17(L) 22 - 29 mmol/L 08/25/2024 10:58 AM [facility] Glucose 293(H) 70 - 115 mg/dL 08/25/2024 10:58 AM [facility] Calcium 8.6 8.4 - 10.2 mg/dL 08/25/2024 10:58 AM [facility] Protein Total 8.4(H) 6.0 - 8.3 g/dL 08/25/2024 10:58 AM [facility] Albumin 2.6(L) 3.4 - 5.0 g/dL 08/25/2024 10:58 AM [facility] Bilirubin Total 0.3 0.2 - 1.2 mg/dL 08/25/2024 10:58 AM [facility] Alkaline Phosphatase 216(H) 40 - 150 U/L 08/25/2024 10:58 AM [facility] ALT 8 5 - 55 U/L 08/25/2024 10:58 AM [facility] AST 10 5 - 34 U/L 08/25/2024 10:58 AM [facility] Anion Gap 9 6 - 16 08/25/2024 10:58 AM [facility] BUN/Creatinine Ratio 7 7 - 23 08/25/2024 10:58 AM [facility] Osmolality Calculated 294 275 - 295 mOsm/kg 08/25/2024 10:58 AM [facility] Albumin/Globulin Ratio 0.4(L) 1.1 - 2.3 08/25/2024 10:58 AM [facility] eGFR by CKD-EPI 17(L) >=90 mL/min/1.7 3 m2 08/25/2024 10:58 AM [facility] Blood BLOOD SPECIMEN / Unknown Venipuncture / Unknown 08/25/2024 9:50 AM CDT 08/25/2024 10:20 AM CDT Penny Morris MD LAB - CHEMISTRY [facility] Organization Address City/State/ZIP Co de Phone Number [facility] [address] [place] [address], [facility] [phone] * (ABNORMAL) CBC W AUTO DIFFERENTIAL (08/25/2024 9:50 AM CDT) WBC 16.2(H) 4.0 - 10.7 x10E9/L 08/25/2024 10:25 AM [facility] RBC Count 3.33(L) 3.90 - 5.20 x10E12/L 08/25/2024 10:25 AM [facility] Hemoglobin 9.9(L) 11.9 - 15.8 g/dL 08/25/2024 10:25 AM [facility] Hematocrit 32.5(L) 34.8 - 46.1 % 08/25/2024 10:25 AM [facility] MCV 97.6 80.0 - 98.0 fL 08/25/2024 10:25 AM [facility] MCH 29.7 26.7 - 33.6 pg 08/25/2024 10:25 AM [facility] MCHC 30.5(L) 31.7 - 36.3 g/dL 08/25/2024 10:25 AM [facility] RDW-CV 14.6 11.3 - 14.8 % 08/25/2024 10:25 AM [facility] Platelet Count 424(H) 150 - 420 x10E9/L 08/25/2024 10:25 AM [facility] MPV 9.0 7.8 - 11.4 fL 08/25/2024 10:25 AM [facility] Neutrophil % 65.9 41.0 - 74.0 % 08/25/2024 10:25 AM [facility] Lymphocyte % 17.9 17.0 - 47.0 % 08/25/2024 10:25 AM [facility] Monocyte % 6.0 3.0 - 11.0 % 08/25/2024 10:25 AM [facility] Eosinophil % 8.4(H) 0.0 - 7.0 % 08/25/2024 10:25 AM [facility] Basophil % 0.5 0.0 - 1.6 % 08/25/2024 10:25 AM [facility] Immature Granulocytes % 1.3(H) 0.0 - 1.0 % 08/25/2024 10:25 AM [facility] Neutrophil Absolute 10.68(H) 1.60 - 7.50 x10E9/L 08/25/2024 10:25 AM [facility] Lymphocyte Absolute 2.90 1.00 - 4.40 x10E9/L 08/25/2024 10:25 AM [facility] Monocyte Absolute 0.97 0.15 - 1.00 x10E9/L 08/25/2024 10:25 AM [facility] Eosinophil Absolute 1.36(H) 0.00 - 0.60 x10E9/L 08/25/2024 10:25 AM [facility] Basophil Absolute 0.08 0.00 - 0.13 x10E9/L 08/25/2024 10:25 AM [facility] NRBC 0.2(H) <=0.0 /100 WBC 08/25/2024 10:25 AM [facility] Blood BLOOD SPECIMEN / Unknown Venipuncture / Unknown 08/25/2024 9:50 AM CDT 08/25/2024 10:20 AM T Penny Morris MD LAB - HEMATOLOGY ORD ERABLES [facility] [address] [place] [address], [facility] [phone] documented in this encounter Visit Diagnoses Not on filedocumented in this encounter Administered Medications Inactive Administered Medications - up to 3 most recent administrations Medication Order MAR Action Action Date Dose Rate Site 0.9% NaCl injection 1-10 mL 1-10 mL, Intracatheter, PRN, Other, peripheral line flush, Starting on Fri08/25/24 at 0934, Until Fri08/25/24 at 1934, Flush peripheral IV catheter with 1-10 mL of normal saline before and after medications and prn to clear blood from the line or to verify patency. 0.9% NaCl injection 3 mL 3 mL, Intracatheter, EVERY 8 HOURS, First dose on Fri08/25/24 at 1400, Until Discontinued, Flush peripheral IV catheter with 3 mL of normal saline every 8 hours. documented in this encounter Active and Recently Administered Medications Times are shown in CDT. Scheduled Medication Order 08/23/2024 08/24/2024 08/25/2024 0.9% NaCl injection 3 mL(Linked Group 1) 3 mL, Intracatheter, EVERY 8 HOURS, First dose on Fri08/25/24 at 1400, Until Discontinued, Flush peripheral IV catheter with 3 mL of normal saline every 8 hours. 1400 (Due) PRN Medication Order 08/23/2024 08/24/2024 08/25/2024 0.9% NaCl injection 1-10 mL(Linked Group 1) 1-10 mL, Intracatheter, PRN, Other, peripheral line flush, Starting on Fri08/25/24 at 0934, Until Fri08/25/24 at 1934, Flush peripheral IV catheter with 1-10 mL of normal saline before and after medications and prn to clear blood from the line or to verify patency. Linked Groups Order Group 1: SALINE LOCK, INSERT AND MAINTAIN (CANCELED) Routine, CONTINUOUS, Starting on Fri08/25/24 at 0945, Until Specified, New collection, Task Completed: Yes And 0.9% NaCl injection 3 mLJump to med 3 mL, Intracatheter, EVERY 8 HOURS, First dose on Fri08/25/24 at 1400, Until Discontinued, Flush peripheral IV catheter with 3 mL of normal saline every 8 hours. And 0.9% NaCl injection 1-10 mLJump to med 1-10 mL, Intracatheter, PRN, Other, peripheral line flush, Starting on Fri08/25/24 at 0934, Until 08/25/24 at 1934, Flush peripheral IV catheter with 1-10 mL of normal saline before and after medications and prn to clear blood from the line or to verify patency. 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
--- OUTSIDE RECORDS SUMMARY | 2024-11-17 02:58 | XMS_ITS | Encounter Summary ---
Author Organization [facility] Address [address] [facility] [place] [address] Care Team Providers Care Welding Machine Operator Electroslag Name Role Phone Cherise Patrick PA-C Primary Care Provider [phone] Encounter Details Date Type Department Care Team (Latest Contact Info) Description 08/23/2024 2:30 PM CDT Office Visit [facility] - Infectious Disease [address] [facility], [place] [phone] Kash Ha MD [address] [place] [address] MRSA bacteremia (Primary Dx); 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HCC); Induration of skin; Hypertension, unspecified type; Chronic heel ulcer, right, with unspecified severity (HCC); Other chronic osteomyelitis of right humerus (HCC); ESRD (end stage renal disease) on dialysis (HCC); Acute deep vein thrombosis (DVT) of right upper extremity, unspecified vein (HCC) Social History Tobacco Use Types Packs/Day Years [...] Date Recorded PHQ2 TOTAL SCORE 0 06/10/2023 [facility] - Occupational [...] place to sleep or slept in a usp (including now)? No 07/26/2024 Sex and Gender Information Value Date Recorded Sex Assigned at Not on file Gender Identity Not on file Sexual Orientation Not on file documented as of this encounter Last Filed Vital Signs Vital Sign Reading Time Taken Comments Blood Pressure 174/108 08/23/2024 2:46 PM CDT Pulse - - Temperature 37.1 ??C (98.7 ??F) 08/23/2024 2:46 PM C DT Respiratory Rate 18 08/23/2024 2:46 PM CDT Oxygen Saturation 98% 08/23/2024 2:46 PM CDT Inhaled Oxygen Concentration - - Weight 112.5 kg (248 lb) 08/23/2024 2:46 PM CDT Height 170.8 cm (5' 7.24 ) 08/23/2024 2:46 PM CD T Body Mass Index 38.56 08/23/2024 2:46 PM CDT documented in this encounter Functional [...] Progress Notes * Kash Ha MD - 08/23/2024 2:30 PM CDT OUTPATIENT ID CLINIC PROGRESS NOTE HPI: Duration of admission: 07/25/2024 - 08/09/2024 Gay Canales is a 33 year old [...] any underlying infectious process at this time. Previous infection history: February 2024 admitted to [facility] for MRSA bacteremia with left shoulder septic [...] at nursing facility. May 2024 admitted to [facility] for suspected infectious left shoulder bursitis; ID [...] changes, no acute process Interval History: Patient presents for follow-up. She is here today with [...] the PCP's office many times by leaving [facility]. She said that she got only 4 [...] doing daily dressing changes. No odor noted. Antimicrobial History: Current Antibiotics: Vancomycin IV with HD through 09/10/2024, goal trough 15-20 Prior Antibiotics At [facility] IV vancomycin (07/26 - present) Prior Antibiotics At [facility] IV cefazolin (07/27) - intra-op IV cefepime (07/26 - 07/27) IV azithromycin (07/26 - 07/27 ) Past Medical History: Past Medical History: Diagnosis [...] her sister now. Family History: Family History Problem Relation Name Age of Onset Diabetes - Type 2 Mother Hypertension Mother Diabetes - Type 2 Father Hypertension Father Diabetes - Type 2 Paternal Grandmother Hypertension Paternal Grandmother Current Medications: Current Outpatient Medications Medication Sig acetaminophen (Tylenol) [...] daily as needed for Constipation blood glucose ([employer] Verio) test strip USE ONE STRIP TO TEST BLOOD SUGAR FOUR TIMES DAILY Blood Glucose Monitoring Suppl ([employer] Verio Reflect) w/Device KIT Use 1 kit [...] every 48 hours, sooner if needed. Lancets (Stick and PlayTOUCH DELICA PLUS 33G EXTRA FINE LANCET) USE [...] facility-administered medications for this visit. Medication Allergies: No Known Allergies Review of Systems: A 10-point ROS was done and pertinent positives and negatives are as mentioned in the HPI, otherwise, all other systems are negative. Objective T 98.7 P 90 RR 18 BP 174/1088 BW 112.5 kg. 98% RA PHYSICAL EXAM General: A [...] right shoulder- healed well, c/d/I. No TTP. There is a mass at the right anterior distal clavicle, without TTP, warmth, or redness. Skin: Warm and dry, no rashes or bruising noted. : deferred Line: left IJ THC in place, covered with dressing. Labs: 08/16/2024 vancomycin random level 10.4 BUN 33 [...] values in this interval not displayed. Imaging: MRI Cervical spine wwo contrast 07/30/2024 1. [...] No growth 08/04/2024: No growth x 2 Right shoulder aspiration bedside 07/26/2024: Gram stain: Heavy PMNs, Light GPCs [...] be seen. 3. Right anterior distal clavicle mass, new, started a week ago per patient. There is no sign of infection on examination so this could be hematoma but cannot r/o early infection. However, CT should help providing more information. 4. Left humerus fluid collection, unclear etiology, [...] right IJ. Superficial thrombus right cephalic vein. NOT ON Eliquis. Supposed to be on for at least 3 months for provoked DVT. 9. HTN, not controlled off meds. Will try to contact her PCP. PLAN: - C/W vancomycin as planned. EOT 09/10/2024 - CBC, ESR, CRP today - Will contact her PCP re: her other meds. - Will try to schedule CT chest w contrast to reevaluate for resolution of right subscapularis abscess MONICA but her insurance makes it not easy to schedule CT quickly. She agreed to do it at [facility]. Will schedule an ID follow up after CT is done. I spent 30 minutes in the care of this patient, and over 50% of that time was spent in counseling and coordination of care. Pt was seen on 08/23/2024. Kash Ha MD Infectious Disease Attending ADDENDUM: Called PCP's office yesterday and toady (08/23 and 08/24) unable to leave . Called [facility] in [place] and pharmacist stated that there is only Eliquis prescription pending authorization. No any other refills since 2022. Her PPC on file is Cherise Patrick PA-C Will fax my note to PCP to address Eliquis and other meds. 08/26 CBC WBC 12.5 Hb 10.1 Plt 451. ESR and CRP are pending. documented in this encounter Plan of Treatment Upcoming Encounters Date Type Department Care Team (Late st Contact Info) Description 11/22/2024 1:30 PM PRESCHOOL SUBSTITUTE TEACHER Office Visit [facility] - Infectious Disease [address] [place] [address], [facility] [place] [phone] Kash Ha MD [facility] [place] [address] documented as of this encounter Procedures Procedure Name Priority Date/Time Associated Diagnosis Comments CBC W AUTO DIFFERENTIAL Routine 08/23/2024 3:22 PM CDT 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HCC) C-REACTIVE PROTEIN Routine 08/23/2024 3: 16 PM CDT 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HCC) ERYTHROCYTE SEDIMENTATION RATE Routine 08/23/2024 3:16 PM CDT 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HCC) documented in this encounter Results * (ABNORMAL) CBC WITH DIFFERENTIAL (08/23/2024 3:22 PM CDT) White Blood Cell Count 12.5(H) 3.8 - 10.8 Thousand/u L [facility] RBC 3.48(L) 3.80 - 5.10 Million/uL [facility] Hemoglobin 10.1(L) 11.7 - 15.5 g/dL [facility] Hematocrit 33.3(L) 35.0 - 45.0 % [facility] MCV 95.7 80.0 - 100.0 fL [facility] MCH 29.0 27.0 - 33.0 pg [facility] MCHC 30.3(L) 32.0 - 36.0 g/dL [facility] Comment: For adults, a slight decrease in the calculated MCHC value (in the range of 30 to 32 g/dL) is most likely not clinically significant; however, it should be interpreted with caution in correlation with other red cell parameters and the patient's clinical condition. RDW 13.0 11.0 - 15.0 % [facility] Platelet Count 451(H) 140 - 400 Thousand/u L [facility] MPV 9.6 7.5 - 12.5 fL [facility] Neutrophil Absolute 8463(H) 1500 - 7800 cells/uL [facility] Lymphocytes Absolute 2475 850 - 3900 cells/uL [facility] Absolute Monocytes 550 200 - 950 cells/uL [facility] Eosinophils Absolute 938(H) 15 - 500 cells/uL [facility] Basophils Absolute 75 0 - 200 cells/uL [facility] Granulocytes % 67.7 % [facility] Lymphocytes % 19.8 % [facility] Monocytes % 4.4 % [facility] Eosinophils % 7.5 % [facility] Basophils % 0.6 % [facility] Comment: Test Performed at: [employer] [place], [place] ??[phone] BISI AGUILLON MD Blood BLOOD SPECIMEN / Unknown 08/23/2024 3:22 PM CDT 08/24/2024 8:09 AM CDT Kash Ha MD LAB - HEMATOLOGY ORD ERABLES Performing Organization Address [facility] Co de Phone Number [facility] [address] [place] [address] * (ABNORMAL) C-REACTIVE PROTEIN (08/23/2024 3:16 PM CDT) C-Reactive Protein 18.7(H) <8.0 mg/L [facility] Comment: Test Performed at: [employer] [address] [place], [place] ??[phone] BISI AGUILLON MD Blood BLOOD SPECIMEN / Unknown 08/23/2024 3:16 PM CDT 08/24/2024 8:08 AM CDT Kash Ha MD LAB - CHEMISTRY ORDE RABLES Performing Organization Address City/[facility]/ZIP Co de Phone Number [facility] [address] [place] [address] * (ABNORMAL) ERYTHROCYTE SEDIMENTATION RATE (08/23/2024 3:16 PM CDT) Erythrocyte Sedimentation Rate Westergren 94(H) < OR = 20 mm/h [facility] Comment: Test Performed at: [facility] [address] [place], [place] ??[phone] BISI AGUILLON MD Blood BLOOD SPECIMEN / Unknown 08/23/2024 3:16 PM CDT 08/24/2024 8:08 AM CDT Kash Ha MD LAB - HEMATOLOGY ORD ERABLES [facility] [address] [place] [address] documented in this encounter Visit Diagnoses Diagnosis MRSA bacteremia- Primary Bacteremia 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HCC) Pyogenic arthritis, shoulder region Induration of skin Changes in skin texture Hypertension, unspecified type Chronic heel ulcer, right, with unspecified severity (HCC) Other chronic osteomyelitis of right humerus (HCC) ESRD (end stage renal disease) on dialysis (HCC) End stage renal disease Acute deep vein thrombosis (DVT) of right upper extremity, unspecified vein (HCC) documented in this encounter Additional Health Concerns Infection Onset Date Last Indicated Resolved Time MRSA Hx 05/24/2024 05/24/2024 VRE Hx 05/24/2024 05/24/2024 MRSA 07/25/2024 07/29/2024 COVID-19 Under Investigation 08/25/2024 08/25/2024 08/25/2024 10:55 AM CDT documented as of this encounter Care Teams Welding Machine Operator Electroslag Relationship Specialty Start Date End Date Cherise Patrick PA-C [address] [place], [place] [phone] PCP - General 02/23/24 documented as of this encounter
--- OUTSIDE RECORDS SUMMARY | 2024-11-17 02:58 | XMS_ITS | Encounter Summary ---
Author Organization [facility] Address [address] [facility] [place] [address] Care Team Providers Care Liquified Natural Gas Specialist Name Role Phone Cherise Patrick PA-C Primary Care Provider [phone] Reason for Visit * Reason Onset Date Comments LABS ONLY 08/18/2024 Encounter Details Date Type Department Care Team (Late st Contact Info) Description 08/18/2024 Telephone [facility] - Allergy [address] [facility] [place] [phone] Nohemi Valenzuela PA-C [address] [place] [address] LABS ONLY Social History Tobacco Use Types Packs/Day Years [...] Date Recorded PHQ2 TOTAL SCORE 0 06/10/2023 [facility] - Occupational Stress [...] place to sleep or slept in a detention (including now)? No 07/26/2024 Sex and Gender [...] Telephone Encounter - Eloisa Alonzo, RN - 08/18/2024 9:51 AM CDT Called [facility] Mcintosh at [phone] and spoke to nurse and she said all they are able to get isthe CBC (she explained that only part of those results are back and she will fax) and she said the vanc results she may have to send tomorrow, I provided fax number and she sounded very compliant. Will follow up to ensure results are received, provider notified. documented in this encounter Plan of Treatment Upcoming Encounters Date Type Department Care Team (Late st Contact Info) Description 11/22/2024 1:30 PM ELASTIC CUTTER Office Visit [facility] - Infectious Disease [address] [facility] [place] [address] Kash Ha MD [address] [place] [address] documented as of this encounter Visit Diagnoses Not on filedocumented in this encounter Additional Health Concerns Infection Onset Date Last Indicated Resolved Time MRSA Hx 05/24/2024 05/24/2024 VRE Hx 05/24/2024 05/24/2024 MRSA 07/25/2024 07/29/2024 documented as of this encounter Care Teams Liquified Natural Gas Specialist Relationship Specialty Start Date End Date Cherise Patrick PA-C [address] [place] [phone] PCP - General 02/23/24 documented as of this encounter
--- OUTSIDE RECORDS SUMMARY | 2024-11-17 02:59 | XMS_ITS | Encounter Summary ---
Author Organization [facility] Address [address] [place] [address] Care Team Providers Care Rehabilitation Engineer Name Role Phone Cherise Patrick PA-C Primary Care Provider Reason for Visit * Reason Comments Transitions Of Care Encounter Details Date Type Department Care Team (Latest Contact Info) Description 08/10/2024 Transitional Care [facility] [address] [place] [address] Ewa Blake, RN Transitions Of [...] Date Recorded PHQ2 TOTAL SCORE 0 06/10/2023 [facility] - Occupational Stress [...] place to sleep or slept in a fpc (including now)? No 07/26/2024 Sex and Gender [...] Telephone Encounter - Ewa Blake RN - 08/10/2024 3:45 PM CDT Transition Jd Edwards Consultant (TCC) Terri Blake RN post discharge follow-up contact by telephone: Patient with recent IP discharge from [facility] on 08/09 and had Readmission Risk Assessment (score of 24). This TCC contacted pt by telephone ([phone]) to complete pt post-discharge follow-up contact. 1) How are you feeling? Sick/at dialysis 2) How is your mobility? wc 3) New concerns or problems? Preauth for Eliquis 4) Have you had to go the ER for any reason? no 5) Any questions about your discharge diagnosis and instructions? no 6) Do you have a follow up appointment made? PCP office contacted for fu, Ortho office contacted dottie connt/they will reach out to pt 7) Do you currently have home health, any questions about home care? na 8) Have you filled all of your RX's? Filled except Eliquis, needs prior auth from PCP 9) Any questions or concerns that we can help you with? Contact info shared w pt pt verbalized that she is feeling sick. TCC inquired re: whether Patient has had any problems or questions since dc. pt indicated she was able to obtain most medications without incident. pt indicated she is taking most medications. no symptoms related to dc meds. pt denied any current medical and psychosocial needs. Patient pt denied any unscheduled visits to the ER, hospital, or urgent care since discharge. pt denied any questions related to diet, medications, or condition at this time. TCC encouraged pt to call this casualty underwriter with questions, concerns, barriers to care, and/or additional resources if needed. pt verbalized understanding and agreement with plan. TCC will continue to provide post- discharge monitoring for 30 days post-discharge with target end date of program and intervention(s) set for 09/07. no follow-up needs identified or indicated at this time. Call Duration: 30 min Ewa Blake RN, MSN Transition Jd Edwards Consultant Office: [phone] 08/10/2024 documented in this encounter Plan of Treatment Upcoming Encounters Date Type Department Care Team (Late st Contact Info) Description 11/22/2024 1:30 PM COMMERCIAL LOAN PROCESSOR Office Visit [facility] - Infectious Disease [address] [facility] [place] [address] Kash Ha MD [address] [place] [address] documented as of this encounter Visit Diagnoses Not on filedocumented in this encounter Additional Health Concerns Infection Onset Date Last Indicated Resolved Time MRSA Hx 05/24/2024 05/24/2024 VRE Hx 05/24/2024 05/24/2024 MRSA 07/25/2024 07/29/2024 documented as of this encounter Care Teams Rehabilitation Engineer Relationship Specialty Start Date End Date Cherise Patrick PA-C [facility] [place] [phone] PCP - General 02/23/24 documented as of this encounter
--- OUTSIDE RECORDS SUMMARY | 2024-11-17 02:59 | XMS_ITS | Encounter Summary ---
Author Organization [facility] Address [address] [place] [address] Care Team Providers Care Drop Hammer Operator Helper Name Role Phone Cherise Patrick PA-C Primary Care Provider Reason for Visit * Auth/Cert (Routine) Specialty Diagnoses / Procedures Referred By Contac t Referred To Contact Diagnoses Pneumonia, Septic Arthritis Referral ID Status Reason Start Date Expiration Date Visits Re quested Visits Authorized [id number] 1 1 Encounter Details Date Type Department Care Team (Late st Contact Info) Description 07/30/2024 1:32 PM CDT - 07/30/2024 11:59 PM CDT Hospital Encounter [facility] - Cardiac Paper Feeder [facility] [place] [address] Geronimo Burleson MD [address] [place] [address] Ralph Burt MD [address] [place] [address] Discharge Disposition: Home or Self Care Social History Tobacco Use Types Packs/Day [...] Date Recorded PHQ2 TOTAL SCORE 0 06/10/2023 [facility] Occupat ional Health - Occupational Stress [...] place to sleep or slept in a longterm (including now)? No 07/26/2024 Sex and Gender Information Value Date Recorded Sex Assigned at Not on file Gender Identity Not on file Sexual Orientation Not on file documented as of this encounter Last Filed Vital Signs Vital Sign Reading Time Taken Comments Blood Pressure 129/77 07/30/2024 2:08 PM CDT Pulse 81 07/30/2024 2:08 PM CDT Temperature - - Respiratory Rate 17 07/30/2024 2:08 PM CDT Oxygen Saturation 94% 07/30/2024 2:08 PM CDT Inhaled Oxygen Concentration - - Weight - - Height - - Body Mass Index - - documented in this encounter Functional Status Functional [...] FOR BLOOD GLUCOSE TESTING 100 Each 12/12/2022 renal vitamin (Dialyvite) tablet Take 1 (one) tablet by mouth once daily 02/28/2024 sevelamer carbonate (Renvela) 800 MG Take 1 (one) tablet by mouth 3 times daily with meals 02/28/2024 acetaminophen (Tylenol) 500 MG tablet Take 1 (one) tablet by mouth every 4 hours Maximum allowable Acetaminophen amount = 4 Grams (4000 mg) / 24 hours. 03/02/2024 09/01/2024 amLODIPine (Norvasc) 10 MG tablet Take 1 (one) tablet by mouth once daily 02/28/2024 08/24/2024 apixaban (Eliquis) 5 MG tablet Take 2 (two) tablets by mouth 2 times daily for 4 days, THEN 1 (one) tablet 2 times daily for 90 days. 196 tablet 08/09/2024 09/01/2024 bisacodyl (Dulcolax) 10 MG suppository Insert 1 (one) suppository into the rectum once daily as needed for Constipation 02/28/2024 09/01/2024 carvedilol (Coreg) 12.5 MG tablet Take 1 (one) tablet by mouth 2 times daily with morning and evening meal 12/12/2022 08/24/2024 FeroSul 325 (65 Fe) MG tablet Take 1 (one) tablet by mouth daily with breakfast 08/08/2022 09/01/2024 furosemide (Lasix) 40 MG tablet Take 1 (one) tablet by mouth every Friday, Friday & Friday 0 05/23/2023 09/01/2024 gabapentin (Neurontin) 100 MG capsule Take 1 (one) capsule by mouth 3 times daily 12/27/2022 insulin lispro (HumaLOG;ADMelog) 100 UNIT/ML pen Inject 0 (zero) Units to 6 (six) Units subcutaneously 3 times daily with meals 05/09/2023 08/09/2024 lisinopril (Prinivil; Zestril) 20 MG tablet Take 1 (one) tablet by mouth once daily 02/29/2024 08/24/2024 melatonin 3 MG tablet Take 1 (one) tablet by mouth nightly as needed for Insomnia 05/09/2023 09/01/2024 nystatin (Mycostatin) 123357 UNIT/GM powder Apply to affected area 3 times daily 12/12/2022 08/09/2024 oxyCODONE, immediate release, (Roxicodone) 10 MG tabletIndications:Py ogenic arthritis of right shoulder region, due to unspecified organism (HCC) Take 1 (one) tablet by mouth every 4 hours as needed for Pain 12 tablet 08/09/2024 09/01/2024 oxyCODONE, immediate release, (Roxicodone) 10 MG tabletIndications:Os teomyelitis of left shoulder, unspecified type (HCC) Take 1 (one) tablet by mouth every 4 hours as needed 06/03/2024 08/09/2024 polyethylene glycol 3350 (Miralax) 17 g packet Take 17 (seventeen) g by mouth once daily 02/28/2024 08/09/2024 senna (Senokot) 8.6 MG tablet Take 1 (one) tablet by mouth once daily 02/28/2024 09/01/2024 vancomycin 750 mg in 0.9% NaCl IV 0.9 % 250 mL 750 (seven hundred fifty) mg by Intravenous route every Friday, , & Friday for 35 days 08/06/2024 09/01/2024 documented as of this encounter Plan of Treatment Upcoming Encounters Date Type Department Care Team (Late st Contact Info) Description 11/22/2024 1:30 PM PARKING REGULATION ENFORCEMENT OFFICER Office Visit [facility] - Infectious Disease [address] [place] [address], [place] [phone] Kash Ha MD [address] [place] [address] documented as of this encounter Procedures Procedure Name Priority Date/Time Associated Diagnosis Comments ECHO MATT COMPLETE Routine 07/30/2024 2:0 5 PM CDT Sepsis due to methicillin resistant Staphylococcus aureus (MRSA), unspecified whether acute organ dysfunction present (HCC) documented in this encounter Visit Diagnoses Not on filedocumented in this encounter Administered Medications Inactive Administered Medications - up to 3 most recent administrations Medication Order MAR Action Action Date Dose Rate Site benzocaine (Hurricane) spray PRN, Starting on Fri07/30/24 at 1341, Until Fri07/30/24 at 1341, Intra-procedure (CATH) $ Given 07/30/2024 1:41 PM CDT 0.5 mL fentaNYL (PF) (Sublimaze) injection Intravenous, PRN, Starting on Fri07/30/24 at 1354, Until Fri07/30/24 at 1405, Intra-procedure (CATH) $ Given 07/30/2024 2:05 PM CDT 25 mcg $ Given 07/30/2024 2:01 PM CDT 25 mcg $ Given 07/30/2024 1:56 PM CDT 25 mcg glycopyrrolate (Robinul) injection PRN, Starting on Fri07/30/24 at 1401, Until Fri07/30/24 at 1355, Intra-procedure (CATH) $ Given 07/30/2024 1:55 PM CDT 0.2 mg lidocaine viscous (Xylocaine) 2 % solution Mouth/Throat, PRN, Starting on Fri07/30/24 at 1341, Until Fri07/30/24 at 1341, Intra-procedure (CATH) $ Given 07/30/2024 1:41 PM CDT 10 mL midazolam (Versed) injection Intravenous, PRN, Starting on Fri07/30/24 at 1355, Until Fri07/30/24 at 1405, Intra-procedure (CATH) $ Given 07/30/2024 2:05 PM CDT 1 mg $ Given 07/30/2024 2:01 PM CDT 1 mg $ Given 07/30/2024 1:56 PM CDT 1 mg documented in this encounter Additional Health Concerns Infection Onset Date Last Indicated Resolved Time MRSA Hx 05/24/2024 05/24/2024 VRE Hx 05/24/2024 05/24/2024 MRSA 07/25/2024 07/29/2024 documented as of this encounter Care Teams Drop Hammer Operator Helper Relationship Specialty Start Date End Date Cherise Patrick PA-C [address] [place] [phone] PCP - General 02/23/24 documented as of this encounter
--- OUTSIDE RECORDS SUMMARY | 2024-11-17 02:59 | XMS_ITS | Encounter Summary ---
Author Organization [facility] Address [address] [place] [address] Care Team Providers Care Bridge Club Manager Name Role Phone Cherise Marcelo PA-C Primary Care Provider [phone] Reason for Referral * Home Health Care (Routine) - Pending Review Specialty Diagnoses / Procedures Referred By Jany martinez Referred To Contact Home Health Services Diagnoses MRSA bacteremia ESRD (end stage renal disease) (HCC) Osteomyelitis of right foot, unspecified type (HCC) Harpreet Katz DO [address] [place] [address] [facility] Scheduling [address] [place] [address] Referral ID Status Reason Start Date Expiration Date Visits Requested Visits Authorized [id number] Pending Review Specialty Services Required 08/06/2024 08/06/[phone] * Evaluate & Treat (Routine) - Open Specialty Diagnoses / Procedures Referred By Jany martinez Referred To Contact Orthopedics Diagnoses Pyogenic arthritis of right shoulder region, due to unspecified organism (HCC) Harpreet Katz DO [address] [place] [address] Tao Chapman MD [address] [place] [address] Referral ID Status Reason Start Date Expiration Date V isits Requested Visits Authorized [id number] Open Specialty Services Required 08/23/2024 08/23/2025 1 1 Scheduling Instructions [address] Chapman, if possible please make it on 08/23, as patient has Infectious Disease appt as well that day and has difficulty with transportation * Radiology Services (Routine) - Authorized Specialty Diagnoses / Procedures Referred By Jany martinez Referred To Contact CT Scan Diagnoses Pyogenic arthritis of right shoulder region, due to unspecified organism (HCC) Procedures CT Chest W Contrast CT Chest W Contrast Harpreet Katz DO [address] [place] [address] Referral ID Status Reason Start Date Expiration Date V isits Requested Visits Authorized [id number] Authorized 08/24/2024 08/24/2025 1 1 Reason for Visit * Auth/Cert (Routine) Specialty Diagnoses / Procedures Referred By Jany martinez Referred To Contact Diagnoses Pneumonia, Septic Arthritis Referral ID Status Reason Start Date Expiration Date Visits Re quested Visits Authorized [id number] 1 1 Encounter Details Date Type Department Care Team (Late st Contact Info) Description 07/25/2024 8:15 PM CDT - 08/09/2024 12:56 PM CDT Hospital Encounter [facility] [address] [place] [address] Ralph Burt MD [address] [place] [address] Geronimo Burleson MD [address] [place] [address] Kwaku Ellsworth MD [address] [place] [address] Rob Cruz MD [address] [facility] [place] [address] Harpreet Katz DO [address] [place] [address] Internal Medicine Discharge Disposition: [facility] Facility Social History Tobacco Use Types Packs/Day Years [...] Date Recorded PHQ2 TOTAL SCORE 0 06/10/2023 [facility] - Occupational [...] place to sleep or slept in a alf (including now)? No 07/26/2024 Sex and Gender Information Value Date Recorded Sex Assigned at Not on file Gender Identity Not on file Sexual Orientation Not on file documented as of this encounter Last Filed Vital Signs Vital Sign Reading Time Taken Comments Blood Pressure 158/88 08/08/2024 8:15 PM CDT Pulse 91 08/08/2024 8:15 PM CDT Temperature 37.4 ??C (99.3 ??F) 08/08/2024 8:15 PM CD T Respiratory Rate 18 08/08/2024 8:15 PM CDT Oxygen Saturation 94% 08/08/2024 8:15 PM CDT Inhaled Oxygen Concentration - - Weight 112.9 kg (248 lb 12.8 oz) 07/30/2024 7:51 PM CDT Height 170.2 cm (5' 7 ) 07/26/2024 4:14 AM CDT Body Mass Index 38.69 07/30/2024 7:01 AM CDT documented in this encounter Functional [...] as of this encounter Discharge Summaries * Harpreet Katz, - 08/09/2024 10:32 AM CDT HOSPITALIST DISCHARGE SUMMARY NAME: Leeroy Canales : 1990 DATE OF ADMISSION: 07/25/2024 DATE OF DISCHARGE: 08/09/2024 FINAL DIAGNOSES: Include all new and active diagnoses. 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, with long-term current use of insulin (HCC) Hypoalbuminemia Septic arthritis of shoulder, right (HCC) Pneumonia of both lungs due to infectious organism, unspecified part of lung Acute pain of right shoulder Sepsis due to methicillin resistant Staphylococcus aureus (MRSA) ([facility]) Dyslipidemia Obesity, Class II, BMI 35-39.9 Hyponatremia Hyperkalemia Hyperphosphatemia Hypocalcemia Chronic ulcer of right heel (HCC) Osteomyelitis of right foot (HCC) DISCHARGE DESTINATION: Home FOLLOW UP PLAN: Include list of active issues: Next steps Testing & Referrals Scheduled: Testing & Referrals TBD: Timing Provider Continue IV vancomycin at hemodialysis // until 09/10/2024 ID follow up 08/23, 09/08 Orthopedic follow up [address] chest w contrast per ID recs - requested for 08/23 Continue Eliquis for at least 3 months for provoked DVT, follow up with PCP PENDING TEST RESULTS: none INCIDENTAL FINDINGS REQUIRING FOLLOW UP: none READMISSION RISK SCORE: 21+: high 30 day readmission risk 0-20: low-moderate 30 day readmission risk 24 at 11:49 AM 08/09/2024. Secondary/Resolved/Significant Prior Diagnoses: none PRESENTING HISTORY: Per Dr. Quinn: Leeroy Canales is a 33 year old y/o female with PMH of T2DM, ESRD on HD TTS, HTN, HLD, hx of RUE DVT, anemia, PVD, blindness, s/p L AKA, HFpEF, prior hx of infectious arthritis presenting from [facility] for 3 day history of right shoulder pain. Patient states that she felt right shoulder pain upon waking up one morning and it has progressed to become a 10/10, deep throbbing pain that she also feels in her upper arm. Pain is more severe on movement. Denies any trauma to the area. Also reports that for about two weeks, she has been experiencing cold sweats and fevers. Of note, patient had admission from 05/23-06/03 for infectious arthritis of L shoulder; pt states this pain feels exactlythe same as her prior infection but in the opposite shoulder. Patient comes from a nursing facility where she was receiving rehab for prosthetic for LLE. At OSH labs revealed WBC 12.9k, Hb 10.3, plt 255; ESR 90, CRP 29.4; CMP remarkable for Na 131. Synovial fluid of R shoulder showing 92% neutrophils. Azithro, cefepime, vancomycin started at OSH. OSH imaging notable for the following: Shoulder x-ray showing mild osteoarthritis of acromioclavicular joint. Shoulder CT showing prominent erosive changes of the right humeral head and greater tuberosity, as well as the right coracoid process, prominent thickening of the shoulder capsule, right shoulder effusion CT chest abdomen pelvis showing bilateral pulmonary infiltrates suggesting bilateral pneumonia, cardiomegaly HOSPITAL COURSE: (include consults and procedure details) 33F hx of T2DM, ESRD on HD TTS, HTN, HLD, hx of RUE DVT, anemia, PVD, blindness, s/p L AKA, HFpEF, prior hx of infectious arthritis presenting as OSH transfer from [facility] for 3 day historyof right shoulder pain. At [place] (OSH) labs revealed WBC 12.9k, Hb 10.3, plt 255; ESR 90, CRP 29.4; CMP remarkable for Na 131. Synovial fluid of R shoulder showing 92% neutrophils. Azithro, cefepime, vancomycin started at OSH. OSH imaging notable for bilateral PNA and right shoulder pyogenic arthritis, for which she was transferred to [facility] on 07/25. ID consulted. Nephrology consulted for continuation of HD. S/p shoulder aspiration on 07/26 - 220k nucleated cells, 97% neutrophils. 07/27 - OR forright shoulder I&D with Ortho, cultures +MRSA. Blood cultures also growing MRSA (negative since08/01-). CT chest showing 2.9 cm subscapularis abscess with adjacent osteomyelitis of right humeral head. She was found to have RUE DVT involving internal jugular vein and started on Eliquis. In setting of recent surgery, DVT likely provoked and thus will need at least 3 months 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. Pneumonia resolved. Patient had decreased dosages of HTN medications due to softer blood pressures, likely in setting of sepsis. However, blood pressures improved with continued antibiotic treatment. Antibiotics narrowed to IV vancomycin to be continued until 09/10/24, to be administered at HD. ID and Orthopedics referrals placed. Outpatient CT chest with contrast ordered per ID recs. Patient discharged home on 08/09/24. POA ACTIVATED STATUS: NO RADIOLOGY: (last 7 days) + additional pertinent studies XR Chest 1Vw Portable Result Date: 08/06/2024 IMPRESSION: *Left IJ central venous catheter terminates in the right atrium. Stable cardiomediastinal silhouette. Low lung volumes with bronchovascular crowding. Suspected superimposed mild interstitial edema. No large pleural effusion or pneumothorax. > Interpreting Provider: Stoney Hong MD on 08/06/2024 12:27 PM IR Central Line Insert Tunnel Result Date: 08/06/2024 Impression: Successful placement of left internal jugular tunneled dialysis catheter. I was presentfor the entire procedure. > Interpreting Provider: Ingrid Aguillon MD on 08/06/2024 12:20 PM ADDITIONAL PERTINENT STUDIES: XR Chest 1Vw Portable Result Date: 08/06/2024 IMPRESSION: *Left IJ central venous catheter terminates in the right atrium. Stable cardiomediastinal silhouette. Low lung volumes with bronchovascular crowding. Suspected superimposed mild interstitial edema. No large pleural effusion or pneumothorax. > Interpreting Provider: Stoney Hong MD on 08/06/2024 12:27 PM IR Central Line Insert Tunnel Result Date: 08/06/2024 Impression: Successful placement of left internal jugular tunneled dialysis catheter. I was presentfor the entire procedure. > Interpreting Provider: Ingrid Aguillon MD on 08/06/2024 12:20 PM IR Central Line Insert Tunnel Result Date: 07/30/2024 IMPRESSION: Successful Left internal jugular tunneled central venous Trialysis catheter placement. > Interpreting Provider: Husam Palacios MD on 07/30/2024 5:19 PM MRI Cervical Spine Wwo Cont Result Date: 07/30/2024 IMPRESSION: 1. Normal MRI of the cervical spine. 2. An incompletely imaged T2/STIR hyperintense lesion in the apex of the left thorax/superior mediastinum measuring approximately 2.3 x 4.0 cm on sagittal T2 and STIR sequences, corresponds to a cluster of mildly enlarged lymph nodes seen on the chest CT dated 07/27/2024. > Interpreting Provider: Leeanna Mathew MD on 07/30/2024 11:[address] Foot Right W Contrast Result Date: 07/28/2024 IMPRESSION: Wound at the plantar aspect of the hindfoot overlying the calcaneal tuberosity. Changesin the underlying calcaneus compatible with sequela of osteomyelitis. > Interpreting Provider: Xander De Guzman MD on 07/28/2024 3:[address] Chest Abdomen Pelvis W Cont Result Date: 07/27/2024 Impression: 1.A 2.9 cm right subscapularis abscess with adjacent osteomyelitis of the right humeralhead and septic arthritis. There is a surgical drain likely in the glenohumeral joint space. 2.An ill-defined fluid collection adjacent to the left humerus without a well-defined rim which may represent an early developing abscess versus phlegmon. 3.Cardiomegaly with pulmonary edema. 4.Dendriform pulmonary ossifications in the lung bases. > Dictated by Steve Haney DO (energy operations vice president). I, Arthur Avery MD have personally reviewed and interpreted this examination/study. > Interpreting Provider: Arthur Avery MD on 07/27/2024 5:19 PM XR Shoulder Right 2Vw or More Result Date: 07/26/2024 IMPRESSION: Osseous erosions of the humeral head and scapula, 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 Findings are further characterized outside hospital CT from 07/25/2024 ([facility] No acute fracture or dislocation. Partially imaged airspace opacity in the setting of the right lung. Recommend attention to dedicated chest radiograph. > Interpreting Provider: Matt Maguire MD on 07/26/2024 4:28 PM RECENT/NOTABLE LABS: include pertinent positives Recent Labs Component Name 08/07/24 0547 12/02/22195408/25/22314 SODIUM - - 142 POTASSIUM 4.2 - 3.6 CHLORIDE - - 107 CO2 26 - 26 BUN 33* - 13 CREATININE 6.99* - 1.58* EGFR 7* - 45* - = values in this interval not displayed. Recent Labs Component Name 08/07/24 0547 WBC 12.1* HGB 9.5* HCT 31.3* PLTCOUNT 468* Recent Labs Component Name 08/04/24 0254 08/03/24 0538 08/02/24 0804 INR 1.2 1.2 1.0 VITALS/MENTAL STATUS/NOTIBLE EXAM FINDINGS Most recent weight: Weight: (NO WEIGHT ORDERED) (07/31/24 1107) BP 158/88 (BP Location: Left arm, Patient Position: Lying) Pulse 91 Temp 99.3 ??F (37.4 ??C) (Oral) Resp 18 Ht 1.702 m (5' 7 ) Wt 112.9 kg (248 lb 12.8 oz) SpO2 94% Exam: General: Well appearing, interactive HEENT: NC/AT, EOMI, MMM Heart: RRR Lungs: CTAB, normal effort Abd: Soft, NT/ND, +BS Ext: left AKA, rt foot dressing C/D/I, Rt shoulder dressing C/D/I, L IJ HD line Skin: Warm, dry, no rash Neuro: A&Ox3, non focal Psych: Appropriate mood DISCHARGE MEDICATIONS AND ALLERGIES This list of medications is preliminary and tentative: please see the Patient Discharge Instructions for patients discharged home or the Facility Transfer Order for the final and accurate medication list. Current Discharge Medication List START taking these medications Instructions Authorizing Provider apixaban 5 MG tablet Commonly known as: Eliquis Quantity Dispensed: 196 tablet Start taking on: August 09, 2024 Take 2 (two) tablets by mouth 2 times daily for 4 days, THEN 1 (one) tablet 2 times daily for 90 days. Harpreet Katz DO Gauze Dressing 4 X4 Pads Quantity Dispensed: 24 Each Use 1 Pad every 2 days Apply to right shoulder, change dressing every 48 hours, sooner if needed. Harpreet Katz DO vancomycin 750 mg in 0.9% NaCl IV 0.9 % 250 mL 750 (seven hundred fifty) mg by Intravenous route every Friday, , & Friday for 35 days Rob Cruz MD CONTINUE taking these medications which have CHANGED Instructions Authorizing Provider gabapentin 300 MG capsule What changed: medication strength how much to take when to take this Commonly known as: Neurontin Quantity Dispensed: 30 capsule Take 1 (one) capsule by mouth every Friday, Friday & Friday Harpreet Katz DO oxyCODONE (immediate release) 10 MG tablet What changed: reasons to take this Commonly known as: Roxicodone Quantity Dispensed: 12 tablet Take 1 (one) tablet by mouth every 4 hours as needed for Pain Harpreet Katz DO CONTINUE taking these medications which have NOT CHANGED Instructions Authorizing Provider acetaminophen 500 MG tablet Commonly known as: Tylenol Take 1 (one) tablet by mouth every 4 hours Maximum allowable Acetaminophen amount = 4 Grams (4000 mg) / 24 hours. Martine Morrissey MD Alcohol Prep 70 % Quantity Dispensed: 100 Each USE ONE SWAB TO CLEAN SKIN FOUR TIMES DAILY BEFORE TESTING Amanda Georges MD amLODIPine 10 MG tablet Commonly known as: Norvasc Take 1 (one) tablet by mouth once daily Fox Burleson MD bisacodyl 10 MG suppository Commonly known as: Dulcolax Insert 1 (one) suppository into the rectum once daily as needed for Constipation Fox uBrleson MD carvedilol 12.5 MG tablet Commonly known as: Coreg Take 1 (one) tablet by mouth 2 times daily with morning and evening meal Rosi Menard, [employer] FeroSul 325 (65 Fe) MG tablet Generic drug: ferrous sulfate Take 1 (one) tablet by mouth daily with breakfast furosemide 40 MG tablet Commonly known as: Lasix Take 1 (one) tablet by mouth every Friday, Friday & Friday Willard Estrella lisinopril 20 MG tablet Commonly known as: Prinivil; Zestril Take 1 (one) tablet by mouth once daily Fox Burleson MD melatonin 3 MG tablet Take 1 (one) tablet by mouth nightly as needed for Insomnia Joe Vargas MD ONETOUCH DELICA PLUS 33G EXTRA FINE LANCET Quantity Dispensed: 100 Each USE ONE LANCET TO PRICK FINGER FOUR TIMES DAILY FOR BLOOD GLUCOSE TESTING MD Tyron Ying Verio Reflect w/Device Kit Quantity Dispensed: 1 kit Use 1 kit 4 times daily USE METER TO CHECK BLOOD GLUCOSE FOUR TIMES DAILY Reasons: CALL [facility] X4364 MD Tyron Ying Verio test strip Generic drug: blood glucose Quantity Dispensed: 100 strip USE ONE STRIP TO TEST BLOOD SUGAR FOUR TIMES DAILY Amanda Georges MD renal vitamin tablet Take 1 (one) tablet by mouth once daily Fox Burleson MD sennosides 8.6 MG tablet Commonly known as: Senokot Take 1 (one) tablet by mouth once daily Fox Burleson MD sevelamer carbonate 800 MG Commonly known as: Renvela Take 1 (one) tablet by mouth 3 times daily with meals Fox Burleson MD STOP taking these medications insulin lispro 100 UNIT/ML pen Commonly known as: HumaLOG;ADMelog nystatin 430846 UNIT/GM powder Commonly known as: Mycostatin polyethylene glycol 3350 17 g packet Commonly known as: Miralax ALLERGIES: No Known Allergies DISCHARGE INSTRUCTIONS Contact information for after-discharge care Dialysis/Infusion [facility] [address] [facility] [address] [employer] Contact. 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 I spent 55 minutes in addition to direct patient care summarizing this patient's hospital stay, reviewing and updating the inpatient problem list, reviewing discharge medications, instructions, discussing discharge care planand discharge follow up labs/studies/doctor visits with the patient and or POA/family. Harpreet Katz DO documented in this encounter Discharge Instructions * Discharge Instructions* Nohemi Shahid PA-C - 08/09/2024 10:47 AM CDT Images from the original note were not included. A Note From Your Doctors: Ms. Leeroy Canales, You were admitted to the hospital for an infection of your right shoulder, also called septic arthritis. Our Orthopedic surgery team performed a procedure to clean out the affected area. Our Infectious Disease team evaluated you and have made recommendations for you to continue IV antibiotics until09/10/24. You will receive these antibiotics when you have dialysis. Additionally, you were found tohave a blood clot in your right upper arm and were started on a blood thinning medication called Eliquis (apixaban). Please continue this medication for at least 3 months. We also ordered a repeat chest CT scan to evaluate your shoulder in a few weeks around the time you have your Infectious Disease clinic follow up. The radiology department will call you to schedule. Wound Care/Activity Instructions: Weight bearing as tolerated, right upper arm - until you follow up with Orthopedics Keep shoulder clean, dry (ok to shower, but dry off the area well afterwards, do not soak) Change dressings every 48 hours, sooner if needed. MEDICATIONS: Resume your home medications other than those changed, removed, or added as detailed below. Current Discharge Medication List START taking these medications Instructions Authorizing Provider apixaban 5 MG tablet Commonly known as: Eliquis Quantity Dispensed: 196 tablet Start taking on: August 09, 2024 Take 2 (two) tablets by mouth 2 times daily for 4 days, THEN 1 (one) tablet 2 times daily for 90 days. Harpreet Katz DO Gauze Dressing 4 X4 Pads Quantity Dispensed: 24 Each Use 1 Pad every 2 days Apply to right shoulder, change dressing every 48 hours, sooner if needed. Harpreet Katz DO vancomycin 750 mg in 0.9% NaCl IV 0.9 % 250 mL 750 (seven hundred fifty) mg by Intravenous route every Friday, , & Friday for 35 days Rob Cruz MD CONTINUE taking these medications which have CHANGED Instructions Authorizing Provider gabapentin 300 MG capsule What changed: medication strength how much to take when to take this Commonly known as: Neurontin Quantity Dispensed: 30 capsule Take 1 (one) capsule by mouth every Friday, Friday & Friday Harpreet Katz DO oxyCODONE (immediate release) 10 MG tablet What changed: reasons to take this Commonly known as: Roxicodone Quantity Dispensed: 12 tablet Take 1 (one) tablet by mouth every 4 hours as needed for Pain Harpreet Katz DO CONTINUE taking these medications which have NOT CHANGED Instructions Authorizing Provider acetaminophen 500 MG tablet Commonly known as: Tylenol Take 1 (one) tablet by mouth every 4 hours Maximum allowable Acetaminophen amount = 4 Grams (4000 mg) / 24 hours. Martine Morrissey MD Alcohol Prep 70 % Quantity Dispensed: 100 Each USE ONE SWAB TO CLEAN SKIN FOUR TIMES DAILY BEFORE TESTING Amanda Georges MD amLODIPine 10 MG tablet Commonly known as: Norvasc Take 1 (one) tablet by mouth once daily Fox Burleson MD bisacodyl 10 MG suppository Commonly known as: Dulcolax Insert 1 (one) suppository into the rectum once daily as needed for Constipation Fox Burleson MD carvedilol 12.5 MG tablet Commonly known as: Coreg Take 1 (one) tablet by mouth 2 times daily with morning and evening meal Rosi Menard, [employer] FeroSul 325 (65 Fe) MG tablet Generic drug: ferrous sulfate Take 1 (one) tablet by mouth daily with breakfast furosemide 40 MG tablet Commonly known as: Lasix Take 1 (one) tablet by mouth every Friday, Friday & Friday Willard Estrella lisinopril 20 MG tablet Commonly known as: Prinivil; Zestril Take 1 (one) tablet by mouth once daily Fox Burleson MD melatonin 3 MG tablet Take 1 (one) tablet by mouth nightly as needed for Insomnia Joe Vargas MD ONETOUCH DELICA PLUS 33G EXTRA FINE LANCET Quantity Dispensed: 100 Each USE ONE LANCET TO PRICK FINGER FOUR TIMES DAILY FOR BLOOD GLUCOSE TESTING Amanda Georges MD [employer] Reflect w/Device Kit Quantity Dispensed: 1 kit Use 1 kit 4 times daily USE METER TO CHECK BLOOD GLUCOSE FOUR TIMES DAILY Reasons: CALL [facility] WHENDELIVERING X4364 Amanda Georges MD [employer] Verjayda test strip Generic drug: blood glucose Quantity Dispensed: 100 strip USE ONE STRIP TO TEST BLOOD SUGAR FOUR TIMES DAILY Amanda Georges MD renal vitamin tablet Take 1 (one) tablet by mouth once daily Fox Burleson MD sennosides 8.6 MG tablet Commonly known as: Senokot Take 1 (one) tablet by mouth once daily Fox Burleson MD sevelamer carbonate 800 MG Commonly known as: Renvela Take 1 (one) tablet by mouth 3 times daily with meals Fox Burleson MD STOP taking these medications insulin lispro 100 UNIT/ML pen Commonly known as: HumaLOG;ADMelog nystatin 688489 UNIT/GM powder Commonly known as: Mycostatin polyethylene glycol 3350 17 g packet Commonly known as: Miralax If you have any questions about your medications, please be sure to ask the pharmacy when you turkey picker your prescription. You may also call your primary provider to ask if you should be taking your medication. FOLLOW-UP: It is important that you follow-up with all appointments that have been made on your behalf. These appointments include: Future Appointments Friday August 23, 2024 Imaging: CT Chest W Contrast Friday August 23, 2024 Outpatient Referral: Ref to Orthopedics - [facility] Friday August 23, 2024 2:30 PM (Arrive by 2:15 PM) Appointment with Kash Ha at [facility] - Infectious Disease ([phone]) [address] [facility] [phone] Sunday September 01, 2024 9:30 AM Appointment with Tao Chapman at [facility] - Orthopedics ([phone]) [address] [place] [phone] Sunday September 08, 2024 11:00 AM (Arrive by 10:45 AM) Appointment with Kash Ha at [facility] - Infectious Disease ([phone]) [address] [place] [phone] Once per Week Lab: C-REACTIVE PROTEIN Once per Week Lab: CBC WITH DIFFERENTIAL Once per Week Lab: COMPREHENSIVE METABOLIC PANEL Once per Week Lab: ERYTHROCYTE SEDIMENTATION RATE Once per Week Lab: VANCOMYCIN LEVEL TROUGH Additionally, we have requested appointments with the following: Please follow up with your Primary Care Doctor. We have made referrals for Orthopedic surgery follow up. You will be contacted within 3 days of discharge from the hospital by the maintenance scheduler regarding your follow up appointments, as listed above, after leaving the hospital. If you are not contacted pleasecall the number . If a follow-up with your primary care provider has not been scheduled, please schedule an appointment to follow-up on your hospitalization. If there is a conflict, please call the clinic ahead of time and reschedule the appointment. CONCERNING SYMPTOMS: When to call your healthcare provider: Call your healthcare provider immediately if you have any of the following: - Dizziness - Weakness in arms/legs - Fever of 101??F or higher - Shaking chills - Intractable nausea and vomiting - Severe headache - Confusion/altered mental status - Seizures (convulsions) If you are unable to reach your primary provider, please go to the nearest emergency room or call EMS ([phone]). Regards, Internal Medicine Department [address] [id number] Orthopaedic Trauma Surgery Patient Discharge Instructions Leeroy Canales Orthopaedic Trauma Surgery was consulted for the management of your right shoulder infection (septic arthritis). You underwent surgery with Dr. Chapman on 07/27 to wash out the infection from your shoulder joint. Surgery was successful and completed without complication. The following instructions have been tailored for your discharge. Patient Discharge Instructions Summary: FOLLOW UP: Please plan to follow-up with Dr. Chapman in 3 week(s). Future Appointments Friday August 23, 2024 Imaging: CT Chest W Contrast Friday August 23, 2024 Outpatient Referral: Ref to Orthopedics - [facility] Friday August 23, 2024 2:30 PM (Arrive by 2:15 PM) Appointment with Kash Ha at [facility] - Infectious Disease ([phone]) [address] [place] [address], [facility] [id number] Sunday September 01, 2024 9:30 AM Appointment with Tao Chapman at [facility] - Orthopedics ([phone]) [address] [place] [address], [facility] [phone] Sunday September 08, 2024 11:00 AM (Arrive by 10:45 AM) Appointment with Kash Ha at [facility] - Infectious Disease ([phone]) [address] [place] [phone] Once per Week Lab: C-REACTIVE PROTEIN Once per Week Lab: CBC WITH DIFFERENTIAL Once per Week Lab: COMPREHENSIVE METABOLIC PANEL Once per Week Lab: ERYTHROCYTE SEDIMENTATION RATE Once per Week Lab: VANCOMYCIN LEVEL TROUGH You can call the clinic to confirm, cancel, or reschedule as needed. If you have any questions or concerns please call before your visit. Office Schedulers: [phone], option 1 Activity: Activity as tolerated. No strenuous activity until cleared by surgeon at follow-up. Weight Bearing Status: weight bearing as tolerated of the right upper extremity Diet: Resume your normal diet unless otherwise advised by your PCP. Make sure to include plenty of protein, calcium, and water in your diet. Bone Health: Recommend the following to promote bone health: Vitamin D3 daily Multivitamin 1 tablet daily Calcium 1200mg daily Stop smoking - nicotine, which can be found in cigarettes, cigars, chewing tobacco, and e-cigarettes/vapres, has been shown to slow bone healing and increase your risk for infection. Decrease alcohol consumption Fall prevention Surgical Dressing: Change your dry gauze bandage every 2 days and as needed to keep the incision/wound clean and dry. Use an island dressing or gauze and medipore tape. Always wash your hands with soap and water before and after changing your dressing. Your sutures are dissolvable and will fall out on their own in 4-6 weeks. Bathing: You may shower with assistance Do not scrub or soak surgical incisions. No tub baths. Wash gently with soap and water and pat dry. Do not apply lotion, cream, ointment, or powder onto the surgical incisions. OK to use lotion on surrounding dry skin. If you experience increasing pain at your incision site, redness, swelling, increasing discharge, foul odors, or fevers (greater than 100.4) and chills you should call the orthopaedic office. If you feel this is an emergency you should be evaluated in the Emergency Department of a nearby hospital. Shoulder Exercises: Early range of motion is manley to prevent stiffness Perform pendulum exercises 1-2 times a day for five minutes at a time To do this exercise, you can sit or stand. Relax your arm and let it hang down. Move your arm back and forth, then side to side, and then around in small circles in both directions. After about a week, you can make the exercise harder by making bigger movements or holding a weightin your hand. Pain should be mild when performing these exercises. If you feel any sharp or tearing pain, stop immediately and consult with your healthcare provider Home Medications: Resume your home medications as before unless directed otherwise Pain Medication: Our goal is to control your pain. It is important to remember that pain medicationis not intended to take away the pain completely but rather combat it enough to make daily living manageable For mild to moderate pain, please take acetaminophen (Tylenol) as instructed Please reserve narcotic medication for severe pain Please take colace for constipation when taking narcotic medications Please do not exceed 3,000 mg of acetaminophen in a 24 hour period Start decreasing pain medicine as your pain decreases - this means stretching the time between doses. No driving while taking prescription pain medications Do not drink alcohol or take tranquilizers while taking prescription pain medications Do not take medicine that has not been prescribed by your provider Avoid anti-inflammatories such as Ibuprofen or Aleve If none of the above solutions help, contact your surgeon as needed. Prescription Pain Medication: When at home, alternate Tylenol and narcotic medications like oxycodone, hydrocodone, etc for better control of breakthrough pain. Alternating between the two medications helps with pain coverage forbreakthrough pain. Do not drink alcohol while taking prescription pain medicine. Do not drive any motor vehicles while taking prescription pain medicines or any medicines that makeyou sleepy. Take the medicine at the time of the day when you most often feel pain. This may be: when you wake up in the morning, before you start certain activities, or when you are ready for bed. Be sure to call your surgeon for refills at least 48 hours prior to need (prescription pain medications may need more time). MEDICATIONS cannot be refilled after 4:00 p.m. during the week, on weekends or holidays. Anti-inflammatory Medications (ie NSAIDs, Ibuprofen, Advil, Naproxen, Aleve): Typically we like to limit the use of these medications in the beginning stages of fracture healing. Try to avoid these right after surgery unless otherwise instructed by the doctor. These medications can also increase your risk of bleeding if taken with blood thinners (ie Eliquis,Lovenox) Hand and Arm Swelling Elevation Rest your hand and forearm on a stack of pillows with your hand higher than your elbow. Keep your hand above the level of your heart, except when using the hand for daily activities Lightly stroke the back of your hand towards your body Don???t let uninvolved joints get stiff, make sure to stretch and move the rest of your body while recovering Range of Motion Moving your hand is extremely important to reduce swelling Make a tight fist, then open your hand wide - even small movements help! If you can???t move the fingers on their own, use your good hand to bend and straighten the fingers Try to close and open your hand 20 times every hour Retrograde Massage or ???Milking?? Your Digits Position your hand in the air with your elbow resting on the table or armrest Begin at fingertips, use firm pressure with long smooth strokes and rub your fingers down toward the hand and wrist Perform morning and night, or as needed throughout the day Home Health, Physical/Occupational Therapy: If home health or therapy orders are needed, please call the office and provide a fax number of the office or facility where the orders need to be sent. Paperwork: Please drop off paperwork, mail, or fax it to our office ([phone]) in advance so itcan be completed in a timely manner before the necessary deadline. FMLA, disability, and work paperwork is completed each Friday by the Fence Post Cutter. Also, the doctor is only in the office one day a week to sign the paperwork. Please contact our clinic at if you need to schedule or change an appointment or forany additional questions. After hours: [phone] - ask the almond blancher operator for the On-Call Ortho Resident For medical emergencies, please call [phone]. Follow up Contact Information: [facility] Orthopedic Surgery office contact information: [facility] ([facility]) [facility], [address]st [place] [address] Visit our website at [email or web address] for information about our practice and an interactive health encyclopedia. Please visit [facility] to access your health record, ask questions, request medication refills, and request appointments for non-urgent needs after you have configured your [employer] account. If you do not currently have access, please contact one of our staff members or call [phone]. documented in this encounter Medications at Time [...] Friday, Friday & Friday 0 05/23/2023 09/01/2024 lisinopril (Prinivil; Zestril) 20 MG tablet Take [...] 08/06/2024 09/01/2024 documented as of this encounter Progress Notes * Trinidad Holloway PharmD - 08/09/2024 12:43 PM CDT DISCHARGE HEART FAILURE CARE PATHWAY HFpEF (LVEF 50% or greater) Carvedilol 12.5 mg BID Lisinopril 20 mg daily GDMT Target Doses ARB / ACEI: Prescribed at discharge and not at target dose: Currently titrating with expected further dose increases as tolerated. ARNI not prescribed on discharge due to unknown BB: Prescribed at discharge and not at target dose: Currently titrating with expected further dose increases as tolerated MRA: Not prescribed on discharge due to renal function SGLT2i: Not prescribed on discharge due to renal function * Helen Alexandre RN - 08/09/2024 11:41 AM CDT Care Coordination Progress Note Expected Discharge Date: 08/09/2024: Discharge Plan: CM spoke with the liasion for [facility], she stated that the medication was approved thought the insurance and it should be delivered to the out pt HD clinic for tomorrow. Patient is to go [facility] to [facility]. Transport has been scheduled for 1230 trip number is [phone] Family Support (Name and Phone): Extended Emergency Contact Information Primary Emergency Contact: Silvia Resendiz Mobile Relation: Mother Clerical Coordinator needed? No Secondary Emergency Contact: GAYE BEAL Mobile Relation: Sister Clerical Coordinator needed? No Transportation at Discharge: : READMISSION RISK SCORE is 24 at 11:41 AM 08/09/2024.: Name: Helen Alexandre RN * Khloe Lowery - 08/09/2024 11:24 AM CDT Spoke with Rowan at [facility] and she was made aware and added patient back to the schedule for tomorrow OP HD. Patient IVABX is to be delivered tomorrow . Khloe Lowery Kidney Navigator Office:[phone] Ascom: [phone] * Milagro Delcid, RD/LD - 08/09/2024 10:08 AM CDT Clinical Nutrition Assessment Brief Synopsis: Patient is at Nutrition Risk; Specific criteria can be found in assessment below Nutrition Plan: + Continue Renal Diet --- RD to remove K+ restriction since it is WNL, RD to add Consistent Carb todiet given high BG levels (194-297) + Continue Nepro BID w/meals (425 kcal, 19 gm protein) Recommendations to Physician: + None Comments: Pt scheduled for reassessment. Pt has a L AKA and is legally blind. Per documentation, Pthas been having inconsistent PO intake, eating 20-100% of her meals. Nepro intake not documented, RD to continue this order to aid in nutrition status. Per charts, no GI issues noted, Last BM was 08/09. Pt is on iHD, last session 08/07--1,000mL UF. Nephrology following. On IV antibiotics. Labs reviewed-- BUN high (33), Cr high (6.99), eGFR low (7), Phos high (5.9), Glucose high (146-297). Previous RDeducated patient on wound healing diet education. PT will discharge home with home health. RD to follow. Assessment: Med/Surg History and Clinical Diagnoses: 33 year old y/o female with PMH of T2DM, ESRD on HD TTS, HTN, HLD, hx of RUE DVT, anemia, PVD, blindness, s/p L AKA, HFpEF, prior hx of infectious arthritis presenting from [facility] for 3 day history of right shoulder pain. Patient states that she felt right shoulder pain upon waking up one morning and it has progressed to become a 10/10, deep throbbing pain that she also feels in her upper arm. Pain is more severe on movement. Denies any traumato the area. Also reports that for about two weeks, she has been experiencing cold sweats and fevers. Of note, patient had admission from 05/23-06/03 for infectious arthritis of L shoulder; pt states this pain feels exactly the same as her prior infection but in the opposite shoulder. Height: 170.2 cm (5' 7 ) Weight: (NO WEIGHT ORDERED) BMI: Body mass index is 38.69 kg/m??. BMI Range: Morbidly Obese Class 3 IBW/lb (Calculated) Female: 135, Recent Weights/Methods 05/24/2024 1400 05/29/2024 0857 07/25/2024 2242 07/26/2024 0414 07/26/2024195107/27/2024 1419 07/30/2024195007/31/2024 1107 Weight: 93.4 kg (205 lb 14.6 oz) -- 114.2 kg (251 lb 11.2 oz) 114.2 kg (251 lb 11.2 oz) 113.5 kg (250 lb 3.2 oz) -- 112.9 kg (248 lb 12.8 oz) -- Weight Method : -- -- -- Bed scale Bed scale -- Bed scale -- Wt Comments: Need a new weight, ordered a new one. Monitoring. Diet order accuracy Current diet order: Renal Standard Current supplement order: Nepro BID Nutrition recommendation: agree with current nutrition order P.O.Intake for the past 48 hrs: % Meal Taken Av.7 % Min: 30 % Max: 100 % Supplement(s) Consumed- Last 48 hours None Food Allergies: No known food allergies GI Concerns: None Chewing/Swallowing: Altered Dentition (Missing teeth) Pain affecting intake: No Estimated Needs: KCAL: 0137-3151 (30-35kcal/kg) Protein (g): 71-82 (1.3-1.5g/kg) Fluid (ml): 1 ml/kcal Needs based on: Kcal/kg- (Comment) (55kg adjsuted IBW) Recommended Access Route: PO Laboratory values: Recent Labs Component Name 08/07/24 0547 08/06/24 0402 08/05/24203108/05/24 0431 05/25/24 0643 05/24/24 0625 02/23/24 0737 02/22/24 2214 BUN 33* 18 13 30* - 33* - 21 CREATININE 6.99* 4.60* 3.42* 6.11* - 3.64* - 4.88* NA 138 135* 134* 138 - 139 - 136 POTASSIUM 4.2 4.2 3.7 4.3 - 4.2 - 4.1 CL 98 96* 97* 99 - 104 - 100 CO2 26 29 23 30* - 26 - 26 GLUCOSE 218* 230* 218* 145* - 240* - 261* CALCIUM 8.9 8.7 9.3 8.9 - 8.5 - 8.8 PROT 7.9 - - - - 7.2 - 8.1 ALB 2.1* 2.1* - 1.8* - 1.9* - 1.5* TBILI 0.2 - - - - 0.1* - 0.2 ALKPHOS 106 - - - - 170* - 221* ALT <5* - - - - 25 - 11 AST 10 - - - - 14 - 7 ANIONGAP 14 10 14 9 - 9 - 10 BCR 5* 4* 4* 5* - 9 - 4* OSMOLALITY 300* 289 285 295 - 303* - 294 AGRATIO 0.4* - - - - 0.4* - 0.2* EGFR 7* 12* 18* 9* - 16* - 12* - = values in this interval not displayed. Medications: Current Facility-Administered Medications Medication 0.9% NaCl injection 3 mL And 0.9% NaCl injection 1-10 mL 0.9% NaCl injection 10-40 mL acetaminophen (Tylenol) tablet 650 mg ammonium lactate (Lac-Hydrin) 12 % lotion apixaban (Eliquis) tablet 10 mg Followed by [START ON 08/13/2024] apixaban (Eliquis) tablet 5 mg carvedilol (Coreg) tablet 3.125 mg dextrose 10 % IV bolus Or dextrose 10 % IV bolus Or glucagon (Glucagen) injection 1 mg epoetin carlin-EPBX (Retacrit) 5,000 unit injection ferrous sulfate tablet 325 mg gabapentin (Neurontin) capsule 300 mg glucose (Diabetic Use) oral gel heparin injection 2,800 Units HYDROmorphone (Dilaudid) injection 0.2 mg oxyCODONE (immediate release) (Roxicodone) tablet 10 mg polyethylene glycol 3350 (Miralax) packet 17 g renal vitamin (Dialyvite) tablet 1 tablet sevelamer carbonate (Renvela) tablet 1,600 mg vancomycin (Vancocin) 750 mg in 0.9% NaCl IV 250 mL IVPB vancomycin (Vancocin) IV dose per pharmacy vitamin D3 (Cholecaciferol) tablet 5,000 Units Skin/Wound: Flank. leg, shoulder, foot wound Education needed: Wound Healing Education Provided: Yes Expected level of compliance: Needs reinforcement Nutrition Care Process (1) Nutrition Diagnostic Statement: Increased nutrient needs related to:: increased demands for wound healing;renal dysfunction as evidenced by:: delayed wound healing Nutrition Diagnostic Statement Progress: Nutrition problem continues Nutrition Intervention: Meals and snacks:;Medical Food Supplements: Monitoring: PO intake, labs, weight, BM Evaluation: Nutrition Goal: Total intake will meet estimated nutrient needs Nutrition Goal Timeframe: Throughout stay Nutrition Goal Progress: Progressing toward goal Milagro Delcid RD/RAFAEL Ascom:[phone] * Willie Garcia RN - 08/09/2024 9:55 AM CDT Problem: Pain/Discomfort Goal: Patient exhibits [...] in the flowsheet documentation) Outcome: Progressing Problem: Nutrient: Increased nutrient needs (specify) Goal: Total intake will meet estimated nutrient needs Outcome: Progressing Problem: Hemodynamic Status/Cardiac Output Goal: Patient has stable vital signs and fluid balance Outcome: Progressing Problem: Balance Goal: LTG - Patient will demonstrate Intervention to enhance balance for safe completion of daily activities Outcome: Progressing Problem: Skin Integrity Goal: Skin integrity is maintained or improved Outcome: Progressing * Nicolás Truong DO - 08/09/2024 9:36 AM CDT [facility] Nephrology Consult Note Date of Admission: 07/30/2024 Date of Service: 07/26/2024 Consulting Service: Trey Schmitt Reason for Consult: ESRD Brief Hospital Course: Leeroy Canales is a 33 year old female w/ PMH significant for ESRD on HD TTS, HTN, HLD, T2DM (diagnosed age 17) c/b retinopathy w/ blindness, hx of RUE dvt, PVD s/p L BKA, HFpEF (70-75% 05/2023), who was transferred from [facility] to [facility] 07/26/24 for R shoulder pain w/ concerns for septic arthritis requiring orthopedic surgery intervention, previously at rehab center from prior hospital discharge bcx obtained and started on vanc/cefepime/azithromycin for concern for BL pleural effusions at OSH and septic arthritis. Has recent hx of L shoulder septic arthritis 05/23-06/03 and says pain very similar. Reports last iHD was sat 07/24 no issues, uses RIJ perm cath replaced 02/2024, previously also hadRIJ perm cath but due to bacteremia in 02/2024 had to be briefly removed has been on iHD for past 1 year, has had vein mapping in past 06/16/24but 2/2 smaller caliber veins unable to get fistula or graft per surgical eval at [facility] unable to locate records. Perm cath removed 07/28 2/2 MSSA bacteremia, persistent until 08/01 1st neg bcx, repeat bcx on 08/02 neg and prelim 08/03 bcx neg Interval hx: -no acute events overnight -discussed abx to be delivered to HD unit for tomorrow session Dialysis Center: [facility] Dialysis Days: TTS Date if last dialysis: sat 07/24/24 Access: R-IJ Permcath Dialysis Duration: 3 Hours 30 Minutes Solution Professional: Dr Mak [facility] Medications: No current facility-administered medications for this encounter. Physical Exam: Vitals: 07/30/24 1338 07/30/24 1359 07/30/24 1405 07/30/24 1408 BP: 138/79 148/92 153/80 129/77 Pulse: 79 81 82 81 Resp: 16 14 17 17 SpO2: 94% 99% 94% 94% Intake/Output Summary (Last 24 hours) at 08/09/20241914 Last data filed at 08/08/20242044 Gross per 24 hour Intake 120 ml Output -- Net 120 ml General: Laying comfortably in bed, no acute distress HEENT: Head NC/AT, EOMI, no scleral icterus, moist oral mucosa without erythema or exudates, hearing at baseline Respiratory: Lungs CTA bilaterally, breathing non-labored, symmetrical chest wall expansion Cardiovascular: RRR; no murmurs, rubs, or gallops; Normal S1 and S2; No JVD Gastrointestinal: Soft, non-tender, non-distended abdomen; bowel sounds present in all quadrants Extremities: No edema Musculoskeletal: L BKA Skin: dry erosive skin on RLE Neurologic: AxO x4, no focal neurologic deficits Psychiatric: Calm, cooperative, appropriate mood and affect, normal judgement Dialysis access: R-IJ Permcath placed 02/2024 LABS: Recent Labs Component Name 08/09/24 0945 08/07/24 0547 08/06/24 0402 NA 139 138 135* POTASSIUM 4.2 4.2 4.2 CL 100 98 96* CO2 24 26 29 BUN 30* 33* 18 CREATININE 6.80* 6.99* 4.60* Recent Labs Component Name 08/09/24 0945 08/07/24 0547 08/06/24 0402 CALCIUM 8.6 8.9 8.7 PHOS 4.9 5.9* 4.7 Recent Labs Component Name 02/25/24 0110 PTHINTACT 93.0* 25-OH Vitamin D = Recent Labs Component Name 05/25/24 0643 02/23/24 0737 04/27/23 0730 HGBA1C 6.2* 6.5* 6.7* EAG 131 140 146 Recent Labs Component Name 08/07/24 0547 08/06/24 0402 08/05/24 0431 WBC 12.1* 17.2* 12.5* HGB 9.5* 8.6* 8.6* Recent Labs Component Name 06/02/24 0552 02/25/24 0110 IRON 42 23* TIBC 208* 149* FERRITIN 484* 833* IMAGING: XR Shoulder Right 2Vw or More Result Date: 07/26/2024 IMPRESSION: Osseous erosions of the humeral head and scapula, 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 Findings are further characterized outside hospital CT from 07/25/2024 ([facility]). No acute fracture or dislocation. Partially imaged airspace opacity in the setting of the right lung. Recommend attention to dedicated chest radiograph. > Interpreting Provider: Matt Maguire MD on 07/26/2024 4:28 PM ASSESSMENT #ESRD on maintenance hemodialysis TTS: -perm cath removed 07/28. 3x bcx neg , RIJ perm cath placed 08/06 -started iHD approx 1 year ago #Chronic kidney disease-mineral and bone disorder (CKD-MBD): -Calcium corrected stable -alb low 2.1 -phos 4.9 improved -at home sevelamer on med list but reports not taking #Anemia of chronic kidney disease on dialysis: -hgb stable -last iron studies: ferritin 484H, iron 42, T sat 20wnl -takes ferrous sulfate at home 325mg daily #Hypertension:: -at home takes lasix 40mg MWD, lisinopril 20mg daily, coreg 12.5mg BID #T2DM: -on insulin at home, last A1c 6.2 (05/2024) imrpved from 11.7 in 08/2022 #R glenohumeral joint sepsis: -nuc cell 260080 x 97% neutrophils, septic joint, orthopedic surgery following -on IV abc (vanc cefepime azithro) #PNA #MSSA bacteremia : on Vanc cefepime and azithromycin to cover atypicals -sputum cx light GPC, heavy PMNs -Bcx neg on 08/01, 08/02, repeat obtained on 08/04 given previous only 1/2 bottles collected, all bcx neg RECOMMENDATIONS -called local HD unit to ensure has seat for tomorrow w abx arranged, confirmed can return to OP HD -Patient not seen by attending as she got discharged -continue home sevelamer 800mg TID -continue coreg 12.5mg BID, lasix 40mg daily, lisinopril 20mg daily -on IV vancomycin for MSSA bacteremia, HD unit will supply this medication Patient discussed with attending physician, Dr Sebastian Truong D.O Nephrology Fellow * Lenin Fang RN - 08/08/2024 9:51 PM CDT Problem: Pain/Discomfort Goal: Patient exhibits [...] in the flowsheet documentation) Outcome: Progressing Problem: Nutrient: Increased nutrient needs (specify) Goal: Total intake will meet estimated nutrient needs Outcome: Progressing Problem: Hemodynamic Status/Cardiac Output Goal: Patient has stable vital signs and fluid balance Outcome: Progressing Problem: Fluid and Electrolyte Imbalance Goal: Fluid and electrolyte balance are achieved/maintained Outcome: Progressing Problem: Infection Goal: Signs and symptoms of infections are decreased or avoided Outcome: Progressing Problem: Balance Goal: LTG - Patient will demonstrate Intervention to enhance balance for safe completion of daily activities Outcome: Progressing Problem: Skin Integrity Goal: Skin integrity is maintained or improved Outcome: Progressing * Willie Garcia RN - 08/08/2024 10:46 AM CDT Problem: Pain/Discomfort Goal: Patient exhibits [...] in the flowsheet documentation) Outcome: Progressing Problem: Hemodynamic Status/Cardiac Output Goal: Patient has stable vital signs and fluid balance Outcome: Progressing Problem: Fluid and Electrolyte Imbalance Goal: Fluid and electrolyte balance are achieved/maintained Outcome: Progressing Problem: Infection Goal: Signs and symptoms of infections are decreased or avoided Outcome: Progressing Problem: Skin Integrity Goal: Skin integrity is maintained or improved Outcome: Progressing * Harpreet Katz DO - 08/08/2024 10:28 AM CDT [facility] HOSPITALIST PROGRESS NOTE Patient: Leeroy Canales Sex: female Age: [age] year old Date of : 1990 Date of Admission: 07/25/2024 Date: 08/08/2024 LOS: 14 SUBJECTIVE Interval History: NAEO, reports some right shoulder pain this AM but improves with pain meds. Denies other concerns. Hospital Course: 33F hx of T2DM, ESRD on HD TTS, HTN, HLD, hx of RUE DVT, anemia, PVD, blindness, s/p L AKA, HFpEF, prior hx of infectious arthritis presenting as OSH transfer from [facility] for 3 day historyof right shoulder pain. At Loc (OSH) labs revealed WBC 12.9k, Hb 10.3, plt 255; ESR 90, CRP 29.4; CMP remarkable for Na 131. Synovial fluid of R shoulder showing 92% neutrophils. Azithro, cefepime, vancomycin started at OSH. OSH imaging notable for bilateral PNA and right shoulder pyogenic arthritis, for which she was transferred to [facility] on 07/25. ID consulted. S/p shoulder aspiration on 07/26- 220k nucleated cells, 97% neutrophils. 07/27 - OR for right shoulder I&D with Ortho, cultures +MRSA. Blood cultures also growing MRSA (negative since 08/01-). CT chest showing 2.9 cm subscapularis abscess with adjacent osteomyelitis of right humeral head. Pneumonia resolved. Antibiotics narrowed to IV vancomycin to be continued until 09/10/24, given at HD. Nephrology consulted for continuationof HD. OBJECTIVE Vital Signs: Vitals: 08/07/24 1730 08/07/24 1733 08/07/24202208/08/24 0921 BP: 134/93 139/91 138/89 137/77 Pulse: 88 88 94 91 Resp: 16 16 18 18 Temp: 98 ??F (36.7 ??C) 98.6 ??F (37 ??C) SpO2: 100% 96% 100% Weight: Height: Temp Min: 97.6 ??F (36.4 ??C) Max: 100.7 ??F (38.2 ??C), Pulse Min: 72 Max: 94, Resp Min: 8 Max: 25, BP Min: 90/68 Max: 162/97 Intake & Output: In: 838 [P.O.:838] Out: 1000 Physical Exam: General: Well appearing, interactive HEENT: NC/AT, EOMI, MMM Heart: RRR Lungs: CTAB, normal effort Abd: Soft, NT/ND, +BS Ext: left AKA, rt foot dressing C/D/I, Rt shoulder dressing C/D/I, L IJ HD line Skin: Warm, dry, no rash Neuro: A&Ox3, non focal Psych: Appropriate mood Current Medications: Scheduled: 0.9% NaCl 3 mL Intracatheter q8h ammonium lactate Topical BID apixaban 10 mg Oral BID Followed by [START ON 08/13/2024] apixaban 5 mg Oral BID carvedilol 3.125 mg Oral BID WC epoetin 5,000 Units Intravenous DIALYSIS E, BLUE, & SAT ferrous sulfate 325 mg Oral QDAY WITH BREAKFAST gabapentin 300 mg Oral FRI, FRI AND FRI polyethylene glycol 3350 17 g Oral QDAY renal vitamin 1 tablet Oral QDAY sevelamer carbonate 1,600 mg Oral TID WC vancomycin 750 mg Intravenous , THUR & SAT vancomycin (VANCOCIN) IV dose per pharmacy Does not apply DIRECTED vitamin D3 5,000 Units Oral QDAY Continuous: PRN: SALINE LOCK, INSERT AND MAINTAIN AND 0.9% NaCl AND 0.9% NaCl 0.9% NaCl acetaminophen dextrose IV for hypoglycemia OR dextrose IV for hypoglycemia OR glucagon glucose (Diabetic Use) gel heparin HYDROmorphone oxyCODONE (immediate release) Significant Lab Results: Reviewed Microbiology: Reviewed Imaging & Studies: Reviewed ASSESSMENT & PLAN MRSA bacteremia (POA: Yes) CHF (congestive heart failure) (HCC) (POA: Yes) Essential hypertension (POA: Yes) S/P AKA (above knee amputation) unilateral, left (HCC) (POA: Yes) 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 (HCC) (POA: Yes) Anemia (POA: Yes) ESRD (end stage renal disease) ([facility]) (POA: Yes) 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, with long-term current use of insulin (HCC) (POA: Yes) Hypoalbuminemia (POA: Yes) Septic arthritis of shoulder, right (HCC) (POA: Yes) Pneumonia of both lungs due to infectious organism, unspecified part of lung (POA: Yes) Acute pain of right shoulder (POA: Yes) Sepsis due to methicillin resistant Staphylococcus aureus (MRSA) (HCC) (POA: Yes) Dyslipidemia (POA: Yes) Obesity, Class II, BMI 35-39.9 (POA: Yes) Hyponatremia (POA: Yes) Hyperkalemia (POA: Yes) Hyperphosphatemia (POA: Yes) Hypocalcemia (POA: Yes) Chronic ulcer of right heel (HCC) (POA: Unknown) Osteomyelitis of right foot (HCC) (POA: Yes) 1) Septic Shoulder with associated MRSA bacteremia - s/p Washout with orthopedics on 07/27/2024 - discussed abscess noted on CT Imaging with ortho - suspected that this is more likely a sequela of the washout - reached out to ID, given clearing infection will plan just for repeat imaging as outpatient - Continue abx (vancomycin w/ HD) per ID - EOT 09/10/2024 - will need repeat CT Chest W contrast around 08/23/24 (ordered) -- Outpatient ID follow up scheduled for 08/23/24. I requested CT scan be performed same day as patient has transport difficulties. 2) ESRD on HD - appreciate nephrology assistance - EPO as per nephrology - continue revela - continue vitamin D 3) Right Foot Osteomyelitis - abx as per ID - seen by vascular surgery no plans for intervention given patient's preference - appreciate wound care - weaning IV pain medications 4) HTN - continue coreg at reduced dose - lisinopril and lasix held due to softer pressures a few days ago 5) Anemia of chronic disease - monitor hgb - epo as per nephrology 6) Type 2 DM - diet controlled 7) Upper extremity DVT - Eliquis Daily Checklist VTE PPX [] SCD [] SQ Heparin [] SQ Lovenox [x] Therapeutic Anticoagulation VTE Chemical Prophylaxis Orders (From admission, onward) Ordered Start Stop 08/06/24 1411 apixaban (Eliquis) tablet 5 mg 5 mg, Oral, 2 TIMES DAILY See Hyperspace for full Linked Orders Report. 08/13/24 0900 -- 08/06/24 1411 apixaban (Eliquis) tablet 10 mg 10 mg, Oral, 2 TIMES DAILY End Date/Time: 08/12/24 2100 See Hyperspace for full Linked Orders Report. 08/06/24 1445 08/13/24 0859 08/03/24 1227 heparin injection 2,800 Units 2,800 Units, Intracatheter, DIALYSIS PRN 08/03/24 1225 -- VTE Mechanical Prophylaxis Orders (From admission, onward) Ordered Start 07/25/242219 SEQUENTIAL COMPRESSION DEVICE (IMPLEMENT) CONTINUOUS Start Time: 07/25/242229 Order ID: [id number] Status: Sent 07/25/242229 Stress Ulcer PPX [x] None [] Famotidine [] PPI Fluids Electrolytes Nutrition [x] None [] IV maintenance fluids [] IV colloid infusions K~4.0 Mg~2.0 Phos~3.0 DIETARY NUTRITION SUPPLEMENTS ONCE DIET RENAL LDA Other Wound Plantar;Right (Active) Date/Time: 07/25/24409 Present on admission?: Yes Orientation: Plantar;Right Number of days: 14 Other Wound Anterior;Lower;Right Leg (Active) Date/Time: 07/25/241999 Present on admission?: Yes Orientation: Anterior;Lower;Right Location: Leg Number of days: 13 Other Wound Lower;Right Flank (Active) Date/Time: 07/25/24410 Present on admission?: Yes Orientation: Lower;Right Location: Flank Number of days: 14 Puncture Site Internal juglar (Active) Date/Time: 08/06/24 1211 Orientation: Left Puncture Site Location: (c) Internal juglar Number of days: 1 Procedural Site (Incision) Right Shoulder (Active) No Date or Time found. Orientation: Right Location: Shoulder Wound/Incision Description: surgical site Number of days: Midline 08/03/24 Left Brachial Vein Single Lumen (Active) Placement Date: 08/03/24 Placed by: Shelby SAMUEL Arm: Left Vein used: Brachial Vein Lumens: Single Lumen Pre-insertion upper extremity assessment: WNL - Skin intact Site(s) prepped with: Chloraprep IV Catheter Size: 4 Nigerien Reason for placement... Number of days: 5 Hemodialysis Tunneled Catheter Subclavian [employer] 15.5 (Active) Placement Date/Time: 08/06/24 1158 Placed by: Fredi Aguillon MD Dialysis Tunneled Catheter Location: Subclavian Hemodialysis Cath Orientation: Left [place] Hand/Model : [employer] Model: Duraflow 2 Reference Number: [id number] Lot Number: [id number]... Number of days: 1 Activity Level: Activity as tolerated Consults IP CONSULT TO WOUND NURSE IP CONSULT TO NUTRITIONAL SERV IP CONSULT TO NEPHROLOGY IP CONSULT TO ORTHOPEDICS IP CONSULT TO INFECTIOUS DISEASES IP CONSULT TO HEAD HOUSEKEEPER Disposition Inpatient anticipate dc in 24 hours, will need abx at HD; will follow up with CM team regarding this Code Status Full Code Harpreet Katz DO Hospitalist [facility] 08/08/2024 10:29 AM * Sanjay Garcia RN - 08/07/2024 9:30 PM CDT SITUATIONAL AWARENESS NOTE PATIENT'S NAME: Leeroy Canales BIRTHDATE: 1990 CODE STATUS: Full Code PRIMARY CONCERN FOR SITUATIONAL AWARENESS: Rapid Response within the past 48 hours OBSERVATIONS: Patient resting comfortably on evening rounds. VSS. No cocnerns brought forward. HARNESS RIGGER remains available for any future needs. PLAN: Continue current plan as detailed in daily progress note. OUTCOME: Remains in current room ESCALATION PLAN: If patient begins to clinically deteriorate or there are any significant changes please call a rapid response. Plan discussed with - nursing and patient. Everyone is in agreement with the plan. 10 minutes spent on patient assessment, review of relevant data, and documentation. * Lenin Fang RN - 08/07/2024 9:22 PM CDT Problem: Pain/Discomfort Goal: Patient exhibits [...] in the flowsheet documentation) Outcome: Progressing Problem: Nutrient: Increased nutrient needs (specify) Goal: Total intake will meet estimated nutrient needs Outcome: Progressing Problem: Hemodynamic Status/Cardiac Output Goal: Patient has stable vital signs and fluid balance Outcome: Progressing Problem: Fluid and Electrolyte Imbalance Goal: Fluid and electrolyte balance are achieved/maintained Outcome: Progressing Problem: Infection Goal: Signs and symptoms of infections are decreased or avoided Outcome: Progressing Problem: Balance Goal: LTG - Patient will demonstrate Intervention to enhance balance for safe completion of daily activities Outcome: Progressing Problem: Skin Integrity Goal: Skin integrity is maintained or improved Outcome: Progressing * Ashleigh Saul, JIMMIE - 08/07/2024 6:20 PM CDT HD initiated at 1430, 3 hour tx with 1-1.5L UF as tolerated ordered, patient requesting only 1L UF due to hypotensive episode post tx last time, will watch vitals closely, CVC patent, dressing CDI, patient remained stable throughout treatment, 1L UF achieved, epogen given per orders, heparin given and CVC heparin locked, post treatment vitals stable, BVP 62.6, report given to Hiren Preston RN * Artie Aguillon MD - 08/07/2024 5:04 PM CDT Nephrology Attending Physician History: Pt is a 33 y.o F with a h/o ESRD on HD TTS, DM, HTN, blindness, PVD s/p L AKA, HFpEF who presented to an OSH with c/o R shoulder pain. Pt was transferred to [facility] for higher level of care on 07/25. During this hospitalization pt was found to have septic joint in her R should s/p washout (07/27) and to have MRSA bacteremia. Given MRSA bacteremia, her RIJ TDC was removed and most recently had placementof LIJ TDC on 08/06 since blood cultures have remained negative. Interval History No acute issues overnight. Pt had no complaints Exam/Data : in nad s1s2 rrr Lungs clear b/l abd soft + bs No LE edema Access: LIJ TDC MEDS: 0.9% NaCl 3 mL Intracatheter q8h ammonium lactate Topical BID apixaban 10 mg Oral BID Followed by [START ON 08/13/2024] apixaban 5 mg Oral BID carvedilol 3.125 mg Oral BID WC epoetin 5,000 Units Intravenous DIALYSIS FRI, FRI, & SAT ferrous sulfate 325 mg Oral QDAY WITH BREAKFAST gabapentin 300 mg Oral FRI, FRI AND FRI polyethylene glycol 3350 17 g Oral QDAY renal vitamin 1 tablet Oral QDAY sevelamer carbonate 1,600 mg Oral TID WC vancomycin 750 mg Intravenous , & SAT vancomycin (VANCOCIN) IV dose per pharmacy Does not apply DIRECTED vitamin D3 5,000 Units Oral QDAY PRN MEDS: SALINE LOCK, INSERT AND MAINTAIN AND 0.9% NaCl AND 0.9% NaCl 0.9% NaCl acetaminophen dextrose IV for hypoglycemia OR dextrose IV for hypoglycemia OR glucagon glucose (Diabetic Use) gel heparin HYDROmorphone oxyCODONE (immediate release) LAB: Recent Labs Component Name 08/07/24 0547 08/06/24 0402 08/05/24 0431 08/04/24 0254 08/03/24 0538 08/02/24 0804 08/01/24 0042 07/31/24 1720 07/31/24 0737 HGB 9.5* 8.6* 8.6* - - 9.1* 9.0* - - WBC 12.1* 17.2* 12.5* - - 14.8* 15.0* - - HCT 31.3* 28.9* 29.2* - - 29.7* 29.7* - - MCV 96.6 97.0 97.3 - - 95.2 95.2 - - PT - - - 14.6 14.5 13.3 14.0 - 14.6 INR - - - 1.2 1.2 1.0 1.1 - 1.2 - = values in this interval not displayed. ) Recent Labs Component Name 08/07/2447 08/06/2440108/05/24203108/05/24 0431 08/04/24 0254 08/03/24 0538 BUN 33* 18 13 30* 19 37* CREATININE 6.99* 4.60* 3.42* 6.11* 4.50* 6.54* NA 138 135* 134* 138 137 136 CL 98 96* 97* 99 98 100 CO2 26 29 23 30* 28 25 CALCIUM 8.9 8.7 9.3 8.9 8.9 8.3* PHOS 5.9* 4.7 - 6.3* 4.4 6.1* Recent Labs Component Name 08/07/2447 08/06/2440108/05/2443008/04/244 08/03/24 0538 05/25/24 0643 05/24/24 0625 02/22/24 2214 06/10/23 0939 05/22/23 0521 ALB 2.1* 2.1* 1.8* 1.9* 1.7* - 1.9* 1.5* 1.5* 1.4* TBILI 0.2 - - - - - 0.1* 0.2 0.2 0.1* ALT <5* - - - - - 25 11 8 5 AST 10 - - - - - 14 7 12 9 - = values in this interval not displayed. Recent Labs Component Name 08/05/242031 [id number] 27.2 ASSESSMENT: 1. ESRD on HD TTS with planned HD today 2. HTN with history of ESRD: BP on the lower side but pt is only on Coreg 3.125 mg bid 3. MBD: Ca wnl and phos on the higher side 4. Anemia: Hb near goal for which pt is on Epo 5K with each HD RECOMMENDATIONS: HD today with UF of 1-1.5 L with albumin infusion prior to HD to avoid intradialytic hypotension. Artie Aguillon MD Nephrology Attending * Rob Cruz MD - 08/07/2024 2:33 PM CDT Hospitalist Progress Note Leeroy Canales is a 33 year old female who is admitted for Septic shoulder/bacteremia Subjective: Patient significantly improved. No chest pain, no shortness of breath. No nausea or vomiting. No chest pain. Objective: Blood pressure 108/66, pulse 82, temperature 99 ??F (37.2 ??C), temperature source Oral, resp. rate18, height 1.702 m (5' 7 ), weight 112.9 kg (248 lb 12.8 oz), last menstrual period 07/12/2024, SpO2 96%, not currently . Gen: NAD HEENT: NCAT, Left eye appears injected (chronic per patient), MMM, dressing over prior Right IJ RESP: Clear to auscultation CV: Nl S1 and S2 No gallops. GI: Soft and non tender. +BS, no HSM EXT: left AKA, Right foot with dressing on right foot. Dressing over right shoulder. Lines: Left IJ for dialysis MAR reviewed Relevant labs reviewed K 4.2 Creatinine 6.99 Phos 5.9 Wbc 12.1 Hgb 9.5 Plt 468 Micro Blood cultures 07/29/2024 - 12 positive for MRSA 07/30/2024 - NGTD 07/31/2024 - 11/04 positive for staph hominis 08/01/2024 - NGTD 08/02/2024 - NGTD 08/04/2024 - NGTD Relevant imaging reviewed CXR - mild increased vascular Assessment/Plan: 1) Septic Shoulder with associated MRSA bacteremia - s/p Washout with orthopedics on 07/27/2024 - discussed abscess noted on CT Imaging with ortho - suspected that this is more likely a sequela of the washout - reached out to ID, given clearing infection will plan just for repeat imaging as outpatient - Continue abx per ID - EOT 09/10/2024 - will need repeat CT Chest W contrast around 08/24/24 2) ESRD on HD - appreciate nephrology assistance - EPO as per nephrology - continue revela - continue vitamin D 3) Right Foot Osteomyelitis - abx as per ID - seen by vascular surgery no plans for intervention given patient's preference - appreciate wound care - weaning IV pain medications 4) HTN - continue coreg at reduced dose - lisinopril and lasix held 5) Anemia of chronic disease - monitor hgb - epo as per nephrology 6) Type 2 DM - diet controlled 7) Upper extremity DVT - switching to eliquis LDA: LEft perm cath Diet:renal - renal diet Antibiotic end date: 09/10 Consults: Vascular, ID, Nephrology DVT prophylaxis: eliquis Code status: Full code Disposition: continue inpatient care while awaiting final ID plan. Rob Cruz MD [facility] Medicine 08/07/2024 Feel free to text page me through [employer], login [employer] Current Meds 0.9% NaCl 3 mL Intracatheter q8h ammonium lactate Topical BID apixaban 10 mg Oral BID Followed by [START ON 08/13/2024] apixaban 5 mg Oral BID carvedilol 3.125 mg Oral BID WC epoetin 5,000 Units Intravenous DIALYSIS TUE, BLUE, & SAT ferrous sulfate 325 mg Oral QDAY WITH BREAKFAST gabapentin 300 mg Oral FRI, FRI AND FRI heparin 1,000 Units Intracatheter Dialysis Once polyethylene glycol 3350 17 g Oral QDAY renal vitamin 1 tablet Oral QDAY sevelamer carbonate 1,600 mg Oral TID WC vancomycin 750 mg Intravenous TU, UR & SAT vancomycin (VANCOCIN) IV dose per pharmacy Does not apply DIRECTED vitamin D3 5,000 Units Oral QDAY * Ashleigh Saul RN - 08/07/2024 12:30 PM CDT Images from the original note were not included. REPORT BEFORE DIALYSIS Diagnosis (BOBBY/CRF): ESRD Non-Renal Diagnosis: MRSA BACTEREMIA Isolation: CONTACT MRSA VRE Does patient have signs or symptoms of respiratory infection (fever, cough, shortness of breath): NO Allergies: NKDA Code Status: FULL CODE Orientation Status: A/OX4 On telemetry/Rhythm: NO Oxygen: 2L NC Given any medications: SEE MAR Need for pain medications: SEE MAR Blood pressure issues: NO On any drips: NO Is patient diabetic: NO Any labs to draw: NO Any other procedures today: NO Any concerns about this patient: NO Any medications to be given with dialysis: SEE MAR Due date of next Central Line Dressing change: Primary RN : Hiren PRESTON RN [phone] * Theresa Preston RN - 08/07/2024 10:58 AM CDT Problem: Pain/Discomfort Goal: Patient exhibits reduced pain/discomfort as evidenced by pain scores Outcome: Progressing Problem: Pain/Discomfort Goal: Patient uses pharmacological and non-pharmacological pain management strategies. Outcome: Progressing Problem: Hemodynamic Status/Cardiac Output Goal: Patient has stable vital signs and fluid balance Outcome: Progressing * Lenin Fang RN - 08/06/2024 11:15 PM CDT Problem: Pain/Discomfort Goal: Patient exhibits [...] in the flowsheet documentation) Outcome: Progressing Problem: Nutrient: Increased nutrient needs (specify) Goal: Total intake will meet estimated nutrient needs Outcome: Progressing Problem: Hemodynamic Status/Cardiac Output Goal: Patient has stable vital signs and fluid balance Outcome: Progressing Problem: Fluid and Electrolyte Imbalance Goal: Fluid and electrolyte balance are achieved/maintained Outcome: Progressing Problem: Infection Goal: Signs and symptoms of infections are decreased or avoided Outcome: Progressing Problem: Balance Goal: LTG - Patient will demonstrate Intervention to enhance balance for safe completion of daily activities Outcome: Progressing Problem: Skin Integrity Goal: Skin integrity is maintained or improved Outcome: Progressing * Sanjay Garcia RN - 08/06/2024 10:00 PM CDT SITUATIONAL AWARENESS NOTE PATIENT'S NAME: Leeroy Canales BIRTHDATE: 1990 CODE STATUS: Full Code PRIMARY CONCERN FOR SITUATIONAL AWARENESS: Rapid Response within the past 48 hours OBSERVATIONS: Patient resting comfortably on evening rounds. VSS. No concerns brought forward during evening rounds. HARNESS RIGGER remains available for any future needs. PLAN: Continue current plan as detailed in daily progress note. OUTCOME: Remains in current room ESCALATION PLAN: If patient begins to clinically deteriorate or there are any significant changes please call a rapid response. Plan discussed with - nursing and patient. Everyone is in agreement with the plan. 10 minutes spent on patient assessment, review of relevant data, and documentation. * Aneta Lopez MD - 08/06/2024 6:31 PM CDT ATTENDING NEPHROLOGY PROGRESS NOTE PT NAME : Leeroy Canales PT Date of admit : 07/25/2024 8:15 PM SUBJECTIVE: O/N had rapid response for AMS, hypoxia and hypotension after returning from HD BP 70/40, SPO2 in 40s started on NRB at 99%. BP then imprved to 160s systolic and labs including BCX, CXR sent. Seen at the bed side this PM, looks comfortable, received [facility] TDC this AM Brief Hx: ESRD 2/2 DM2 on HD TTS and other co morbidities as noted in house staff note p/w right shoulder pain,imaging concerning for OM in the setting of known pyogenic arthritis, Nephrology consulted for HD needs Underwent I&D 07/27 Dialysis tunneled catheter was removed on July 28 to give a line free holiday in the settingof the positive blood cultures and a Trialysis temporary catheter was placed in the left IJ due to concerns of a DVT in the rig OBJECTIVE: VITALS: Patient Vitals in the past 8 hrs: 08/06/24 1719, BP:136/80, Temp:98.4 ??F (36.9 ??C), Temp src:Oral, Pulse:76, Resp:19, SpO2:98 % 08/06/24 1310, BP:135/87, Temp:98.6 ??F (37 ??C), Temp src:Oral, Pulse:77, Resp:18, SpO2:99 % 08/06/24 1220, Pulse:75, Resp:17, SpO2:93 % 08/06/24 1215, BP:125/83, Pulse:76, Resp:18, SpO2:93 % 08/06/24 1210, BP:121/81, Pulse:77, Resp:18, SpO2:94 % 08/06/24 1206, BP:118/82, Pulse:75, Resp:19, SpO2:97 % 08/06/24 1205, Pulse:75, Resp:20, SpO2:96 % 08/06/24 1200, Pulse:75, Resp:17, SpO2:100 % 08/06/24 1155, BP:99/72, Pulse:73, Resp:14, SpO2:95 % 08/06/24 1150, BP:106/76, Pulse:75, Resp:17, SpO2:98 % 08/06/24 1148, BP:106/79, Pulse:75, Resp:13, SpO2:95 % 08/06/24 1145, BP:107/81, Pulse:76, Resp:20, SpO2:95 % 08/06/24 1140, Pulse:77, Resp:17, SpO2:95 % I/O: Intake/Output Summary (Last 24 hours) at 08/06/24 1831 Last data filed at 08/06/24 1631 Gross per 24 hour Intake: 530 ml Output: 3000 ml Net : -2470 ml PHYSICAL EXAM: General: A&Ox4 HEENT: EOMI PERRL Neck: No JVD Chest: NVB Heart: S1 S2 Abdomen: NT ND Extremities: no edema Neuro: intact Access: LIJ TDC Exam otherwise grossly unremarkable. MEDS: 0.9% NaCl, 10-40 mL, Intracatheter, q8h 0.9% NaCl, 3 mL, Intracatheter, q8h ammonium lactate, , Topical, BID apixaban, 10 mg, Oral, BID Followed by [START ON 08/13/2024] apixaban, 5 mg, Oral, BID carvedilol, 6.25 mg, Oral, BID WC epoetin, 5,000 Units, Intravenous, DIALYSIS TUE, BLUE, & SAT ferrous sulfate, 325 mg, Oral, QDAY WITH BREAKFAST gabapentin, 300 mg, Oral, MON, WED AND FRI polyethylene glycol 3350, 17 g, Oral, QDAY renal vitamin, 1 tablet, Oral, QDAY sevelamer carbonate, 1,600 mg, Oral, TID WC vancomycin, 750 mg, Intravenous, TUES, THUR & SAT vancomycin (VANCOCIN) IV dose per pharmacy, , Does not apply, DIRECTED vitamin D3, 5,000 Units, Oral, QDAY PRN MEDS: SALINE LOCK, INSERT AND MAINTAIN AND 0.9% NaCl AND 0.9% NaCl 0.9% NaCl acetaminophen dextrose IV for hypoglycemia OR dextrose IV for hypoglycemia OR glucagon glucose (Diabetic Use) gel heparin HYDROmorphone oxyCODONE (immediate release) LAB: Component Name 08/06/24 08/05/24 08/04/24 08/03/24 08/02/24 08/01/24 07/31/24 07/31/24 0402 0431 0254 0538 0804 0042 1720 0737 HGB 8.6* 8.6* - - 9.1* 9.0* 9.6* - WBC 17.2* 12.5* - - 14.8* 15.0* 15.1* - HCT 28.9* 29.2* - - 29.7* 29.7* 31.1* - MCV 97.0 97.3 - - 95.2 95.2 94.5 - PT - - 14.6 14.5 13.3 14.0 - 14.6 INR - - 1.2 1.2 1.0 1.1 - 1.2 ) Component Name 08/06/24 08/05/24 08/05/24 08/04/24 08/03/24 08/02/24 0402 2 0431 0254 0538 0804 BUN 18 13 30* 19 37* 35* CREATININE 4.60* 3.42* 6.11* 4.50* 6.54* 6.11* NA 135* 134* 138 137 136 139 CL 96* 97* 99 98 100 102 CO2 29 23 30* 28 25 26 CALCIUM 8.7 9.3 8.9 8.9 8.3* 8.6 PHOS 4.7 - 6.3* 4.4 6.1* 6.5* Component Name 08/06/24 08/05/24 08/04/24 08/03/24 08/02/24 05/25/24 05/24/24 02/22/24 06/10/23 05/22/23 05/21/23 0402 0431 0254 0538 0804 0643 0625 2214 0939 0521 0450 ALB 2.1* 1.8* 1.9* 1.7* 1.7* - 1.9* 1.5* 1.5* 1.4* 1.4* TBILI - - - - - - 0.1* 0.2 0.2 0.1* 0.2 ALT - - - - - - 25 11 8 5 6 AST - - - - - - 14 7 12 9 7 - = values in this interval not displayed. Component Name 08/05/242031 [id number] 27.2 A&P: ESRD on HD TTS HD tomorrow UF 1-1.5L as tolerated Anemia of CKD NEELAM 5K on HD CKD- BMD On renvella 32528mm tid C/w Vit D supplements Aneta Lopez MD Nephrology Attending * Rob Cruz MD - 08/06/2024 4:52 PM CDT Hospitalist Progress Note Leeroy Canales is a 33 year old female who is admitted for Septic shoulder/bacteremia Subjective: Patient had a rapid response over the evening due to low blood pressure following dialysis. Reported that just didn't feel right. Reports feeling much better this am. Down to 2L of oxygen Objective: Blood pressure 135/87, pulse 77, temperature 98.6 ??F (37 ??C), temperature source Oral, resp. rate18, height 1.702 m (5' 7 ), weight 112.9 kg (248 lb 12.8 oz), last menstrual period 07/12/2024, SpO2 99%, not currently . Gen: NAD HEENT: NCAT, Left eye appears injected (chronic per patient), MMM, dressing over prior Right IJ RESP: Clear to auscultation CV: Nl S1 and S2 No gallops. GI: Soft and non tender. +BS, no HSM EXT: left AKA, Right foot with dressing on right foot. Dressing over right shoulder. Lines: Left IJ for dialysis MAR reviewed Relevant labs reviewed K 4.3 Creatinine 6.11 Phos 6.3 Wbc 12.5 Hgb 8.6 Plt 498 Vanc random 14.6 Micro Blood cultures 07/29/2024 - 1/ positive for MRSA 07/30/2024 - NGTD 07/31/2024 - 11/04 positive for staph hominis 08/01/2024 - NGTD 08/02/2024 - NGTD 08/04/2024 - NGTD 08/05/2024 - pending Relevant imaging reviewed CXR - mild increased vascular Assessment/Plan: 1) Septic Shoulder with associated MRSA bacteremia - s/p Washout with orthopedics on 07/27/2024 - discussed abscess noted on CT Imaging with ortho - suspected that this is more likely a sequela of the washout - reached out to ID, given clearing infection will plan just for repeat imaging as outpatient - Continue abx per ID - EOT 09/10/2024 - will need repeat CT Chest W contrast around 08/24/24 2) ESRD on HD - appreciate nephrology assistance - EPO as per nephrology - continue revela - continue vitamin D 3) Right Foot Osteomyelitis - abx as per ID - seen by vascular surgery no plans for intervention given patient's preference - appreciate wound care 4) HTN - continue coreg at reduced dose - lisinopril and lasix held - although received am dose 5) Anemia of chronic disease - monitor hgb - epo as per nephrology 6) Type 2 DM - diet controlled 7) Upper extremity DVT - switching to eliquis LDA: LEft perm cath Diet:renal - renal diet Antibiotic end date: 09/10 Consults: Vascular, ID, Nephrology DVT prophylaxis: eliquis Code status: Full code Disposition: continue inpatient care while awaiting final ID plan. Rob Cruz MD Hospital Medicine 08/06/2024 Feel free to text page me through [employer], login jeni Current Meds 0.9% NaCl 10-40 mL Intracatheter q8h 0.9% NaCl 3 mL Intracatheter q8h ammonium lactate Topical BID apixaban 10 mg Oral BID Followed by [START ON 08/13/2024] apixaban 5 mg Oral BID carvedilol 6.25 mg Oral BID WC epoetin 5,000 Units Intravenous DIALYSIS FRI, FRI, & SAT ferrous sulfate 325 mg Oral QDAY WITH BREAKFAST gabapentin 300 mg Oral FRI, FRI AND FRI renal vitamin 1 tablet Oral QDAY sevelamer carbonate 1,600 mg Oral TID WC vancomycin 750 mg Intravenous , UR & SAT vancomycin (VANCOCIN) IV dose per pharmacy Does not apply DIRECTED vitamin D3 5,000 Units Oral QDAY * Shakila Moody RN - 08/06/2024 3:48 PM CDT HOME CARE REFERRAL RECEIVED HOWEVER THE PATIENT RESIDES IN AN AREA THAT IS NO LONGER PART OF THE NETWORK. CONTRACT CLERK MADE AWARE & THE REFERRAL CLOSED. Ambar Moody RN [facility] mid level developer Liaison [facility] [phone] * Tyron Vasquez RN - 08/06/2024 12:41 PM CDT Patient tolerated hemodialysis catheter placement well; no complaints of pain or distress, no evidence of bleeding or immediate complication, vital signs consistent with pre-procedure baseline. * Tyron Vasquez RN - 08/06/2024 12:40 PM CDT Interventional Radiology Nursing - End Procedure Note Sedation: Versed: 1 mg, Fentanyl: 50 mcg Sedation start time: 1150 hours Procedure start time: 1151 hours Procedure end time: 1212 hours Additional drugs: None Fluoroscopy time: 0.1 min * Helen Alexandre RN - 08/06/2024 12:23 PM CDT Care Coordination Progress Note Expected Discharge Date: 08/09/2024: Discharge Plan: CM spoke with [facility] and they stated they can cover the care for the IVABX they just needed an out pt order for the medication. Information was given to the care team for this patient. Insurance Auth will be needed for the medication and [facility] can have it delivered to the clinic 08-10-24. Patient could potentially discharge after HD Sat if medically ready. Patient will go to sisters address is [address] [place] [address]. Family Support (Name and Phone): Extended Emergency Contact Information Primary Emergency Contact: Silvia Resendiz Mobile Relation: Mother Clerical Coordinator needed? No Secondary Emergency Contact: GAYE BEAL Mobile Relation: Sister Clerical Coordinator needed? No Transportation at Discharge: : READMISSION RISK SCORE is 24 at 12:24 PM 08/06/2024.: Name: Helen Alexandre RN * Artie Aguillon MD - 08/06/2024 12:20 PM CDT Interventional Nephrology Post-Procedure Note Leeroy Canales 08/06/2024 Procedure: LIJ tunneled central venous catheter placement Correctional Supervisor Lieutenant: Artie Aguillon MD Complications: None The patient tolerated the procedure well with no acute complications with stable vitals post-procedure. Full procedure note and images in [employer] (Results/Interventional) 08/06/2024 12:21 PM Artie Aguillon MD * Artie Aguillon MD - 08/06/2024 12:20 PM CDT IP Sedation Post Date/Time: 08/06/2024 12:20 PM Performed by: ARTIE AGUILLON Authorized by: ARTIE AGUILLON Unit: IR Post-Procedure Attestation: I have reviewed the post-procedure vital signs: Patient is 2 - able to move four extremities voluntarily on command. Patient 2 - is able to breathe and cough freely. Patient's 2 - Blood pressure within 20% of pre-anesthesia level Patient is 2 - Fully Awake Patient's 2 - color is WNL. William score is 10 Patient's temperature is Normalthermic Patient's pain level is: None Post-sedation nausea and vomiting present: No Post-sedation hydration status is adequate: Yes Artie Aguillon MD * Khloe Lowery - 08/06/2024 12:09 PM CDT Updated progress notes sent to patient's Outpatient Hemodialysis Dialysis center. Spoke with Ying at [facility] and she informed that they would need the IVABX order faxed to [phone]. Khloe Lowery [facility] As[facility]: [phone] Office: [phone] * Gretchen Phan PT - 08/06/2024 12:00 PM CDT [facility] Department of Physical Medicine & Rehabilitation Progress Note Patient: Leeroy Canales Med Record Number: [id number] Date of : 1990 Age: [age] year old 08/06/24 1500 Missed Visit Missed Visit Other (Comment) (Of note, patient w/ RR last night w/ tenative plan to return to main. Patient off unit for tunneled line.) * Artie Aguillon MD - 08/06/2024 10:37 AM CDT IP Sedation Pre Date/Time: 08/06/2024 10:37 AM Performed by: Artie Aguillon Authorized by: Artie Aguillon Unit: IR Consent: Verbal consent obtained. Written consent obtained. History & Exam Attestation: I have reviewed the pre-procedure nursing assessment: Yes Brief history and exam related to procedure complete: Yes H&P was reviewed, the patient was examined, and that ? no changes? have occurred in the patient? s condition since the H&P was complete: Yes History of previous anesthetic problems/complications including family history: No History of airway problems: No Tracheal deviation: No Short thick neck/non-visible neck: No Neck with limited range of motion: No Visible anterior neck mass: No Small mouth opening/ and/or sub/mental space (less than 3 finger breadths): No Protruding upper teeth: No Oxygen saturation less than 91% on room air: No Pre-Procedure ASA Classification: ASA 2 Mallampati Classification: Class II Procedure Plan: Moderate Sedation Based on the pre-procedure assessment, History and Physical, and allergy history, this patient is asuitable candidate for sedation during the planned procedure. I have discussed the plan, risk, benefits and alternatives with patient, family members or patient environmental marketing representative: Yes Attestation: I have reviewed the immediate pre-procedure vital signs: Yes Patient reports or my clinical evaluation indicates there have been no changes in the patient's condition prior to the start of the procedure: Yes Intra-Procedure Patient is currently here for permacath placement Artie Aguillon MD * Renuka Baum RN - 08/06/2024 8:30 AM CDT A/ox4 in O2 inhalation @ 2l/min per nasal cannula O2 sat=96%Transport is here to transport pt to IR/for tunnel catheter insertion.Vss,wnl.Due meds administered,pt tolerated.No s/s of distress noted. * Tyron Guo RN - 08/06/2024 8:25 AM CDT SITUATIONAL AWARENESS NOTE PATIENT'S NAME: Leeroy Canales BIRTHDATE: 1990 CODE STATUS: Full Code PRIMARY CONCERN FOR SITUATIONAL AWARENESS: Rapid Response within the past 48 hours OBSERVATIONS: Pt resting in bed comfortably, A&O4. Pt did get her BP medications + lasix + painmeds despite being hypotensive overnight.. Will continue to monitor BP closely. PLAN: Continue current plan as detailed in daily progress note. OUTCOME: Remains in current room ESCALATION PLAN: If patient begins to clinically deteriorate or there are any significant changes please call a rapid response. Plan discussed with - nursing and patient. Everyone is in agreement with the plan. 15 minutes spent on patient assessment, review of relevant data, and documentation. * Trinidad Holloway, PharmD - 08/06/2024 6:48 AM CDT ACTIVE CONSULTS TO PHARMACY/DISEASE STATE MONITORING Pharmacy Consult: Vancomycin PLAN OF CARE UPDATE Indication: documented Bacteremia with Goal Level: pre HD level 15-20 mcg/ml Assessment: Day of treatment: 12 Current dosing regimen: 750 mg,dosing post HD sessions Recent Labs Component Name 08/06/24 0402 08/05/24 2032 08/05/24 0431 08/04/24 0254 08/03/24 0538 08/02/24 0804 08/01/24 0042 07/31/24 1720 07/31/24 0553 07/30/24 0644 07/29/24 0624 05/22/23 0521 05/21/23 0450 05/20/23 0918 05/09/23 0630 05/09/23 0357 05/08/23 0841 04/29/23 0338 04/28/23 0319 04/27/232018 CREATININE 4.60* 3.42* 6.11* 4.50* - 6.11* 5.20* - 9.33* - 8.24* - 1.62* - - 1.83* - - 1.39* - BUN 18 13 30* 19 - 35* 24 - 50* - 35* - 13 - - 17 - - 13 - WBC 17.2* - 12.5* - - 14.8* 15.0* - 13.2* - 10.4 - 7.0 - - - - - 12.3* - VANCORNDM - - 14.6 - - - - - 17.1 - 17.0 - - - - - - - - - VANCTROUGH - - - - - - - - - - - - 15.5 - - 19.5 - - 34.6* - VANCOPEAK - - - - - - - - - - - - - 20.1* - - 26.1 - - 46.6* - = values in this interval not displayed. Update needed to current dosing regimen due to: Dose ordered for 08/05 was not given per JAN. Plan Dosing Reordered 750 mg IV x 1 dose now and will continue previous regimen/plan. Trinidad Holloway, [place] 08/06/2024 6:48 AM [facility] Vancomycin Guideline * Lizett Pace RN - 08/05/2024 11:25 PM CDT Problem: Pain/Discomfort Goal: Patient exhibits [...] in the flowsheet documentation) Outcome: Progressing Problem: Nutrient: Increased nutrient needs (specify) Goal: Total intake will meet estimated nutrient needs Outcome: Progressing Problem: Hemodynamic Status/Cardiac Output Goal: Patient has stable vital signs and fluid balance Outcome: Progressing Problem: Fluid and Electrolyte Imbalance Goal: Fluid and electrolyte balance are achieved/maintained Outcome: Progressing Problem: Infection Goal: Signs and symptoms of infections are decreased or avoided Outcome: Progressing Problem: Balance Goal: LTG - Patient will demonstrate Intervention to enhance balance for safe completion of daily activities Outcome: Progressing Problem: Skin Integrity Goal: Skin integrity is maintained or improved Outcome: Progressing * Lizett Pace RN - 08/05/2024 9:26 PM CDT Pt returned from dialysis in stable condition. Pt complained of pain and was given her prn pain medication. RN assisted pt with repositioning in bed and pt asked for her food to be heated up. Before leaving the room the pt asked RN to help her sit up on the side of the bed because she wasn't feeling well. RN assisted pt to side of bed and noted pt was clammy. RN asked pt if she was nauseous to which pt replied I just don't feel good. . Pt then fainted and fell back in bed. RN noted pt had decreased WOB. Rapid called. PT BP soft and 02 sat 40-50%. Pt placed on non rebreather until rapid and RT came. Labs, ABG, CXR ordered. Pt will be transferring to [facility] 6S Acute, RM 638. Pt is in stable condition on 6L at this time. * Bennett Hinojosa - 08/05/2024 9:24 PM CDT contacted staff on [facility] to follow-up on RR page. Patient is stable and awaiting transfer to [facility]. Family is aware and en route. Bennett Hinojosa 08/05/2024 9:27 PM [id number]/ On-Call [facility] #[id number] * Mateo Daugherty MD - 08/05/2024 8:40 PM CDT Patient came back from dialysis altered and hypoxic (84%O2). Threw up multiple times. Patient sat up in bed, mentation improving. Blood pressure stable (hypertensive) Attempted to keep on NC but requiring HFNC, will transfer to [facility]. LA, ABG, BMP, CXR ordered Mateo Daugherty MD * Terri Roman RN - 08/05/2024 8:10 PM CDT RAPID RESPONSE DOCUMENTATION NOTE PATIENT'S NAME: Leeroy Canales BIRTHDATE: 1990 CODE STATUS: Full Code RAPID DATE: 08/05/2024 RAPID TIME: 2009 RAPID LOCATION: [facility] ADMITTING SERVICE: Rob Cruz MD PERSON(S) NOTIFIED: Person(s) Notified: The care team at bedside, Provider - MD Daugherty, and Pastoral Care PRIMARY REASON FOR CALL: Blood Pressure Oxygenation Acute mental status change Staff concern OUTCOME: Remains in current room SUMMARY OF RAPID EVENTS: HARNESS RIGGER called for AMS, hypoxia, and hypotension. Per primary RN, patient had returned from dialysis A&Ox4 and endorses feeling sick requesting to sit up at the side of thebed. Patient became diaphoretic, nauseous, and then fainted back into bed. Primary RN reports an initial BP of 70/40s and SPO2 in 40s. Upon HARNESS RIGGER arrival, patient was laying in bed on 15L NRB at 99%, clammy, and responsive to voice. BP 160/90, HR 92. BSG 173 obtained. Patient then had two episodes ofvomitus. Patient slowly back to baseline orientation and states I told the nurse in dialysis I didn't feel good. Patient now requiring 6L NC to maintain sats in 90s.Concerns for aspiration after vomiting. Plan to begin high flow and txfr to main house upon bed availability. Labs and ABG obtainedby HARNESS RIGGER and CXR to follow. Patient is currently in stable condition and does not require any critical care needs at this time. HARNESS RIGGER remains available for any additional needs. 60 minutes spent on patient assessment, review of relevant data, and documentation. * Lb Bose RN - 08/05/2024 7:40 PM CDT Patient tolerated treatment faurly well. I was able to remove 3L during 3.5 hours Hemodialysis treatment. Administered Epoetin carlin as prescribed. Blood pressure were soft throughout treatment but patient asymptomatic. Catheter dressing changed. CVC heparin locked. Primary nurse given report. * Nicolás Truong DO - 08/05/2024 5:56 PM CDT [facility] Nephrology Consult Note Date of Admission: 07/25/2024 Date of Service: 07/26/2024 Consulting Service: Trey Team Reason for Consult: ESRD Brief Hospital Course: Leeroy Canales is a 33 year old female w/ PMH significant for ESRD on HD TTS, HTN, HLD, T2DM (diagnosed age 17) c/b retinopathy w/ blindness, hx of RUE dvt, PVD s/p L BKA, HFpEF (70-75% 05/2023), who was transferred from [facility] to [facility] 07/26/24 for R shoulder pain w/ concerns for septic arthritis requiring orthopedic surgery intervention, previously at rehab center from prior hospital discharge bcx obtained and started on vanc/cefepime/azithromycin for concern for BL pleural effusions at OSH and septic arthritis. Has recent hx of L shoulder septic arthritis 05/23-06/03 and says pain very similar. Reports last iHD was sat 07/24 no issues, uses RIJ perm cath replaced 02/2024, previously also hadRIJ perm cath but due to bacteremia in 02/2024 had to be briefly removed has been on iHD for past 1 year, has had vein mapping in past 06/16/24but 2/2 smaller caliber veins unable to get fistula or graft per surgical eval at [facility] unable to locate records. Perm cath removed 07/28 12/05 MSSA bacteremia, persistent until 08/01 1st neg bcx, repeat bcx on 08/02 neg and prelim 08/03 bcx neg Interval hx: -2x bcx neg from 08/01 and 08/02, cx from 08/04 prelim neg Dialysis Center: [facility] Dialysis Days: TTS Date if last dialysis: sat 07/24/24 Access: R-IJ Permcath Dialysis Duration: 3 Hours 30 Minutes Solution Professional: [facility] Medications: 0.9% NaCl 10-40 mL Intracatheter q8h 0.9% NaCl 3 mL Intracatheter q8h ammonium lactate Topical BID carvedilol 12.5 mg Oral BID WC epoetin 5,000 Units Intravenous DIALYSIS TUE, BLUE, & SAT ferrous sulfate 325 mg Oral QDAY WITH BREAKFAST furosemide 40 mg Oral QDAY gabapentin 300 mg Oral MON, WED AND FRI lisinopril 20 mg Oral QDAY renal vitamin 1 tablet Oral QDAY sevelamer carbonate 1,600 mg Oral TID WC vancomycin 750 mg Intravenous TU, THUR & SAT vancomycin (VANCOCIN) IV dose per pharmacy Does not apply DIRECTED vitamin D3 5,000 Units Oral QDAY heparin, 0-40 Units/kg/hr, Last Rate: 20 Units/kg/hr (10/03/24 1049) Physical Exam: Vitals: 08/05/24 1704 08/05/24 1719 08/05/24 1734 08/05/24 1749 BP: 122/80 137/89 120/80 129/89 Pulse: 82 83 83 84 Resp: Temp: SpO2: Weight: Height: Intake/Output Summary (Last 24 hours) at 08/05/2024 1757 Last data filed at 08/05/2024 1000 Gross per 24 hour Intake 340 ml Output -- Net 340 ml General: Laying comfortably in bed, no acute distress HEENT: Head NC/AT, EOMI, no scleral icterus, moist oral mucosa without erythema or exudates, hearing at baseline Respiratory: Lungs CTA bilaterally, breathing non-labored, symmetrical chest wall expansion Cardiovascular: RRR; no murmurs, rubs, or gallops; Normal S1 and S2; No JVD Gastrointestinal: Soft, non-tender, non-distended abdomen; bowel sounds present in all quadrants Extremities: No edema Musculoskeletal: L BKA Skin: dry erosive skin on RLE Neurologic: AxO x4, no focal neurologic deficits Psychiatric: Calm, cooperative, appropriate mood and affect, normal judgement Dialysis access: R-IJ Permcath placed 02/2024 LABS: Recent Labs Component Name 08/05/24 04308/04/24 0254 08/03/24 0538 NA 138 137 136 POTASSIUM 4.3 4.1 4.0 CL 99 98 100 CO2 30* 28 25 BUN 30* 19 37* CREATININE 6.11* 4.50* 6.54* Recent Labs Component Name 08/05/24 0431 08/04/24 0254 08/03/24 0538 CALCIUM 8.9 8.9 8.3* PHOS 6.3* 4.4 6.1* Recent Labs Component Name 02/25/24 0110 PTHINTACT 93.0* 25-OH Vitamin D = Recent Labs Component Name 05/25/24 0643 02/23/24 0737 04/27/23 0730 HGBA1C 6.2* 6.5* 6.7* EAG 131 140 146 Recent Labs Component Name 08/05/24 0431 08/02/24 0804 08/01/24 0042 WBC 12.5* 14.8* 15.0* HGB 8.6* 9.1* 9.0* Recent Labs Component Name 06/02/24 0552 02/25/24 0110 IRON 42 23* TIBC 208* 149* FERRITIN 484* 833* IMAGING: XR Shoulder Right 2Vw or More Result Date: 07/26/2024 IMPRESSION: Osseous erosions of the humeral head and scapula, 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 Findings are further characterized outside hospital CT from 07/25/2024 ([facility] No acute fracture or dislocation. Partially imaged airspace opacity in the setting of the right lung. Recommend attention to dedicated chest radiograph. > Interpreting Provider: Matt Maguire MD on 07/26/2024 4:28 PM ASSESSMENT #ESRD on maintenance hemodialysis TTS: -perm cath removed 07/28. 2x bcx neg -started iHD approx 1 year ago #Chronic kidney disease-mineral and bone disorder (CKD-MBD): -Calcium corrected stable -alb low 1.8 -phos 6.3 H -at home sevelamer on med list but reports not taking #Anemia of chronic kidney disease on dialysis: -hgb 8.6 -last iron studies: ferritin 484H, iron 42, T sat 20wnl -takes ferrous sulfate at home 325mg daily #Hypertension:: -at home takes lasix 40mg MWD, lisinopril 20mg daily, coreg 12.5mg BID #T2DM: -on insulin at home, last A1c 6.2 (05/2024) imrpved from 11.7 in 08/2022 #R glenohumeral joint sepsis: -nuc cell [id number] x 97% neutrophils, septic joint, orthopedic surgery following -on IV abc (vanc cefepime azithro) #PNA #MSSA bacteremia : on Vanc cefepime and azithromycin to cover atypicals -sputum cx light GPC, heavy PMNs -Bcx neg on 08/01, 08/02, repeat obtained on 08/04 given previous only 1/2 bottles collected, prelim for 08/04 neg RECOMMENDATIONS -NPO w plan for perm cath tomorrow followed by iHD on sat 08/07 -restart home sevelamer 800mg TID -continue coreg 12.5mg BID, lasix 40mg daily, lisinopril 20mg daily -on IV vancomycin for MSSA bacteremia Patient will be seen and discussed with attending physician, Dr Lopez . Nicolás Truong D.O Nephrology Fellow * Rob Cruz MD - 08/05/2024 2:43 PM CDT Hospitalist Progress Note Leeroy Canales is a 33 year old female who is admitted for Septic shoulder/bacteremia Subjective: Patient stated that she plans to no longer return to prior facility. States no fevers or chills. No nausea or vomiting. Afebrile. Excited to hopefully get off heparin gtt soon. Objective: Blood pressure 121/73, pulse 81, temperature 98.6 ??F (37 ??C), temperature source Oral, resp. rate17, height 1.702 m (5' 7 ), weight 112.9 kg (248 lb 12.8 oz), last menstrual period 05/11/2024, SpO2 97%, not currently . Gen: NAD HEENT: NCAT, Left eye appears injected (chronic per patient), MMM, dressing over prior Right IJ RESP: Clear to auscultation CV: Nl S1 and S2 No gallops. GI: Soft and non tender. +BS, no HSM EXT: left AKA, Right foot with dressing on right foot. Dressing over right shoulder. Lines: Left IJ for dialysis MAR reviewed Relevant labs reviewed K 4.3 Creatinine 6.11 Phos 6.3 Wbc 12.5 Hgb 8.6 Plt 498 Vanc random 14.6 Micro Blood cultures 07/29/2024 - 11/04 positive for MRSA 07/30/2024 - NGTD 07/31/2024 - 11/04 positive for staph hominis 08/01/2024 - NGTD 08/02/2024 - NGTD 08/04/2024 - pending Relevant imaging reviewed No new imaging Assessment/Plan: 1) Septic Shoulder with associated MRSA bacteremia - s/p Washout with orthopedics on 07/27/2024 - discussed abscess noted on CT Imaging with ortho - suspected that this is more likely a sequela of the washout - reached out to ID, given clearing infection will plan just for repeat imaging as outpatient - Continue abx per ID - EOT 09/10/2024 - will need repeat CT Chest W contrast around 08/24/24 2) ESRD on HD - appreciate nephrology assistance - will need to discuss with nephrology now that blood cultures have been negative when they would like to pursue more permanent access - nephrology requested repeat cultures today, and anticipate placement of line on Friday. Orders placed. - EPO as per nephrology - continue revela - continue vitamin D 3) Right Foot Osteomyelitis - abx as per ID - seen by vascular surgery no plans for intervention given patient's preference - appreciate wound care 4) HTN - continue coreg and lisinopril 5) Anemia of chronic disease - monitor hgb - epo as per nephrology 6) Type 2 DM - diet controlled 7) Upper extremity DVT - continue heparin gtt - consider switching to eliquis after permcath placement LDA: LEft IJ Diet:renal - NPO at [place] Antibiotic end date: TBD Consults: Vascular, ID, Nephrology DVT prophylaxis: Heparin gtt to be held at 1am, Code status: Full code Disposition: continue inpatient care while awaiting final ID plan. Rob Cruz MD Hospital Medicine 08/05/2024 Feel free to text page me through [employer], login jeni Current Meds 0.9% NaCl 10-40 mL Intracatheter q8h 0.9% NaCl 3 mL Intracatheter q8h ammonium lactate Topical BID carvedilol 12.5 mg Oral BID WC epoetin 5,000 Units Intravenous DIALYSIS FRI, FRI, & SAT ferrous sulfate 325 mg Oral QDAY WITH BREAKFAST furosemide 40 mg Oral QDAY gabapentin 300 mg Oral MON, WED AND FRI lisinopril 20 mg Oral QDAY renal vitamin 1 tablet Oral QDAY sevelamer carbonate 1,600 mg Oral TID WC vancomycin 750 mg Intravenous , UR & SAT vancomycin (VANCOCIN) IV dose per pharmacy Does not apply DIRECTED vitamin D3 5,000 Units Oral QDAY * Lb Bose RN - 08/05/2024 2:38 PM CDT REPORT BEFORE DIALYSIS Diagnosis (BOBBY/CRF): ESRD Non-Renal Diagnosis: MRSA Bacteremia Isolation:Contact Does patient have signs or symptoms of respiratory infection (fever, cough, shortness of breath): No Allergies: No Known Allergies Code Status:Full Code Orientation Status: AOX 4 On telemetry/Rhythm: no Oxygen: Given any medications: SEE MAR Need for pain medications: SEE MAR Blood pressure issues: no On any drips: NO Is patient diabetic: yes Any labs to draw: No Any other procedures today: NO Any concerns about this patient: No Any medications to be given with dialysis: No Due date of next Central Line Dressing change: Primary RN : * Lb Bose RN - 08/05/2024 2:27 PM CDT REPORT BEFORE DIALYSIS Diagnosis (BOBBY/CRF): ESRD Non-Renal Diagnosis: MRSA Bacteremia Isolation:Contact Does patient have signs or symptoms of respiratory infection (fever, cough, shortness of breath): No Allergies: No Known Allergies Code Status:Full Code Orientation Status: On telemetry/Rhythm: Oxygen: Given any medications: Need for pain medications: Blood pressure issues: On any drips: Is patient diabetic: yes Any labs to draw: No Any other procedures today: NO Any concerns about this patient: No Any medications to be given with dialysis: No Due date of next Central Line Dressing change: Primary RN : * Gretchen Phan PT - 08/05/2024 2:03 PM CDT [facility] Physical Medicine and Rehabilitation Physical Therapy Progress Note Patient: Leeroy Canales [facility] Record Number: [id number] Date of : 1990 Age: [age] year old PPE worn by staff: gloves;gown - disposable;mask - procedural PPE worn by patient: gown - patient, clean;socks - clean Recommendations: Discharge PT Discharge Recommendations: Patient would benefit from multidisciplinary therapy This recommendation is made due to ongoing PT functional needs: address care for self in the home;address functional deficits;patient to return to prior level of care Recommended Transportation Method: Wheelchair Van SUBJECTIVE: Subjective: Patient agreeable to PT services. Pain Assessment: Pain Location #1 Pain Scale/Observation: Numeric (0-10) Pain Rating Score #1: 0 Sedation Level #1: 1-Awake and alert Behaviors/Assumed Pain Present : Calm Additional pain sites?: No PRECAUTIONS: Weight Bearing Status: (WBAT R UE (OK to remove sling)) Activity Level: Activity as Tolerated OBJECTIVE: At start of therapy session, patient found in bed General Appearance: Patient is a pleasant 33 year old female. No acute distress noted at PT entry. Observations: Patient performed B LE exercises at EOB. Patient returned to supine at end of session. No adverse events. Mental Status/Cognition: Level of Consciousness-Adult: Alert Orientation Level: Oriented X4 Cognition: Follows Commands-Consistent;Attention/concentration-normal for age Mobility: A gait belt and non-slip socks were used for all out of bed activity this date. Bed Mobility: Supine to Sit: Stand By Assist with HOB in semi-fowlers position Sit to Supine: Stand By Assist Transfers: Sit to Stand: Activity Does Not Occur Stand to Sit: Activity Does Not Occur Gait: Weight Bearing Status: (WBAT R UE (OK to remove sling)) Balance: Balance Scales/Tests Used: Sitting: Static/Dynamic Sitting - Static: Good Sitting - Dynamic: Good - ACTIVITY TOLERANCE: Patient's activity tolerance: good. TREATMENT/INTERVENTIONS: strengthening exercises -ankle pumps -long arc quads -seated marches -hip adduction -hip abduction AM-PAC 6 Clicks Mobility Raw Score:: 16 EDUCATION: While performing PT, Patient was instructed in:functional mobility training, self-care training, safety awareness/fall precautions Presented to patient who demonstrates Good understanding of instructions given. ASSESSMENT: Patient would benefit from additional Physical Therapy sessions to achieve the following functionalgoals to enhance independence. Short Term Goals: Goal Formation With patient Patient will perform bed mobility with modified independence Patient will transfer bed to/from chair with stand by assist Patient to perform supine to/from sit independently Carpet Weaver Goal(s): Patient to discharge to appropriate next level of inpatient care. INFORMED CONSENT TO TREATMENT: Plan of care including recommended therapy, goals and frequency, discussed with patient who understands and agrees to proceed. Equipment Issued: gait belt Plan: Patient continues to benefit from skilled therapy services., Continue with goals as established. If patient is discharged from the facility, this note serves as a discharge summary if further physical therapy visits did not occur. Refer to filed flowsheet for further details. Following therapy session, patient left in bed, with bed alarm on , with call light within reach, with RNKerrie aware, all lines/tubes intact. * Helen Alexandre RN - 08/05/2024 11:35 AM CDT Care Coordination Progress Note Expected Discharge Date: 08/05/2024: Discharge Plan: Patient choice is to go home at discharge. This CM reached out to patients mother who stated that patients sister Gaye is who over see's patient's care and is where patient plansto reside. CM reached out to sister and voicemail was left. CM sent referral to [facility]. CM also reached out to out pt pharm to see if insurance would cover the IVABX. [facility] stated they are unable to fill the request as patient will be going to the HD clinic for the IVABX and they are no longer allowed to deliver med's to home for patient to take to HD any longer. Patient will be going to [address] [place], [place] [address] [place] [address]. Family Support (Name and Phone): Extended Emergency Contact Information Primary Emergency Contact: Silvia Resendiz Mobile Relation: Mother Clerical Coordinator needed? No Secondary Emergency Contact: DANIELLE BEALARMANDONishant Mobile Relation: Sister Clerical Coordinator needed? No Transportation at Discharge: : READMISSION RISK SCORE is 24 at 11:35 AM 08/05/2024.: Name: Helen Alexandre RN * Rocio Hartley, PharmD - 08/05/2024 10:20 AM CDT ACTIVE CONSULTS TO PHARMACY/DISEASE STATE MONITORING Pharmacy Consult: Vancomycin ASSESSMENT/PLAN Indication: documented Bacteremia with Goal Level: pre HD level 15-20 mcg/ml and Bone/joint of R shoulder with Goal Level: pre HD level 15-20 mcg/ml (T Th Sat) ID consulted/following: Yes Assessment: Day of treatment: 11 End of treatment date: 09/10/2024 (6 weeks from 1st negative culture) Current dosing regimen: 500 mg,dosing post HD sessions Recent Labs Component Name 08/05/24 0431 08/04/24 0254 08/03/24 0538 08/02/24 0804 08/01/24 0042 07/31/24 0553 07/30/24 0644 07/29/24 0624 05/22/23 0521 05/21/23 0450 05/20/23 0918 05/17/23 2151 05/09/23 0357 05/08/23 0841 04/29/23 0338 04/28/23 0319 04/27/232018 CREATININE 6.11* 4.50* 6.54* 6.11* - 9.33* - 8.24* - 1.62* - - 1.83* - - 1.39* - BUN 30* 19 37* 35* - 50* - 35* - 13 - - 17 - - 13 - VANCORNDM 14.6 - - - - 17.1 - 17.0 - - - - - - - - - VANCTROUGH - - - - - - - - - 15.5 - - 19.5 - - 34.6* - VANCOPEAK - - - - - - - - - - 20.1* - - 26.1 - - 46.6* - = values in this interval not displayed. Microbiology: Recent Labs Component Name 02/22/24 9029 MRSADPCR Detected* MRSA positive: Yes, blood and shoulder I&D culture positive for MRSA Other pertinent micro: Bcx positive for MRSA 07/25-07/29 (vanc susceptible), Bcx positive for staph hominis 07/31, Bcx no growth to date 07/29 Renal: Considered difficult to accurately assess at this time as patient is on intermittent hemodialysis (iHD) with last session 10/1 and next planned 08/05. Of note patient missed regularly scheduled dialysis on 07/29 due to not having access at the time. Patient regularly scheduled dialysis sessions are on T Th Sat. Level(s): See chart above The pre HD level was 14.6 on 08/05. Patient is on iHD with expected clearance of 20-30% per iHD session, the level reported in chart above is expected to be below therapeutic range (10-20 mcg/ml) after next HD session. Plan Dosing: Will continue serial dosing based on scheduled dialysis sessions with next session expected to be on 08/05. Will order dose of 750 mg to be given on 08/05 (today) at 1700. Will order subsequent doses of 750 mg to be given post dialysis on Sat. Monitoring: Will order a vancomycin random level prior to iHD session on 08/10 at 0400 and adjust regimen if indicated. Continue to monitor patient???s renal function and cultures as needed. Continue to do weekly pre-HD levels unless change in HD schedule, then adjust random level timing. Rocio Hartley PharmD 08/05/2024 10:19 AM [facility] Vancomycin Guideline SUBJECTIVE/OBJECTIVE Leeroy Canales is a 33 year old female. Height: 5' 7 (170.2 cm) Wt 112.9 kg (248 lb 12.8 oz) Body mass index is 38.69 kg/m??. Vancomycin Administrations from JAN (last 72 hours) Date/Time Action Medication Dose Rate 08/03/24 1831 $ New Bag/Syringe vancomycin (Vancocin) 500 mg in 0.9% NaCl IV 100 mL IVPB 500 mg 200 mL/hr * Rob Toscano MD - 08/05/2024 9:35 AM CDT Orthopedic surgery plan of care Patient was seen this morning and the wounds were assessed. Pictures were placed in the chart. Right shoulder wound is healing well with no concerning qualities at this time. No further orthopedic surgery intervention is indicated at this time. Rob Toscano Orthopedic surgery PGY1 08/05/2024 * Lizett Pace RN - 08/04/2024 9:35 PM CDT Problem: Pain/Discomfort Goal: Patient exhibits [...] in the flowsheet documentation) Outcome: Progressing Problem: Nutrient: Increased nutrient needs (specify) Goal: Total intake will meet estimated nutrient needs Outcome: Progressing Problem: Hemodynamic Status/Cardiac Output Goal: Patient has stable vital signs and fluid balance Outcome: Progressing Problem: Fluid and Electrolyte Imbalance Goal: Fluid and electrolyte balance are achieved/maintained Outcome: Progressing Problem: Infection Goal: Signs and symptoms of infections are decreased or avoided Outcome: Progressing Problem: Balance Goal: LTG - Patient will demonstrate Intervention to enhance balance for safe completion of daily activities Outcome: Progressing Problem: Skin Integrity Goal: Skin integrity is maintained or improved Outcome: Progressing * Jillian Bowens COTA - 08/04/2024 1:44 PM CDT [facility] Physical Medicine and Rehabilitation Occupational Therapy Progress Note Patient: Leeroy Canales Med Record Number: [id number] Date of : 1990 Age: [age] year old PPE worn by staff: gloves;gown - disposable;mask - procedural PPE worn by patient: gown - patient, clean;socks - clean Recommendations: Discharge OT Discharge Recommendations: Patient would benefit from multidisciplinary therapy This recommendation is made due to ongoing OT functional needs: address functional deficits Activity Level: as tolerated PRECAUTIONS: Weight Bearing Status: Upper Extremity Weight Bearing: WBAT SUBJECTIVE: Subjective: Patient agreeable to exercise but I don't like that chair Pain Assessment: Pain Location #1 Pain Scale/Observation: Numeric (0-10) Pain Rating Score #1: 2 Sedation Level #1: 1-Awake and alert Behaviors/Assumed Pain Present : Calm OBJECTIVE: At start of therapy session, patient found in bed and with bed alarm on General Appearance: pt in NAD Vitals: (*Assess the 3 levels of oxygen saturations both for room air and 02 unless rest on room air is 88% or less). Rest BP: 134/86 HR: 88 Sp02 98% on room air Mental Status/Cognition: Level of Consciousness-Adult: Alert Orientation Level: Oriented X4 Cognition: Follows Commands-Consistent Attention Span: Attends with cues to redirect Memory: Appears intact Following Commands: Follows one step commands consistently Safety Judgement: Good awareness of safety precautions Awareness of Errors: Good awareness of errors made Problem Solving: Assistance required to generate solutions;Assistance required to implement solutions Exercises: Pt completed R shoulder rotation, scapular elevation & Isometric abduction for 10 reps x 3 sets. Patient able to verbalize understanding of HEP this date. Mobility: a gait belt and non-slip socks were used for all out of bed activity this date. Bed Mobility: Rolling: Modified [place] Supine to Sit: Minimal Assistance with HOB in semi-fowlers position Sit to Supine: Minimal Assistance Transfers: Pt declined Balance: Balance Scales/Tests Used: Sitting: Static/Dynamic Sitting - Static: Good - Sitting - Dynamic: Good - AM-PAC 6 Clicks Daily Activity Raw Score:: 16 TREATMENT/INTERVENTIONS: Bed mobility Safety awareness HEP training EDUCATION: While performing OT, Patient was instructed in:safety awareness/fall precautions , home exercise program, use of call light Presented to patient who demonstrates Good understanding of instructions given. INFORMED CONSENT TO TREATMENT: Plan of care including recommended therapy, goals and frequency, discussed with patient who understands and agrees to proceed. ASSESSMENT: Patient continues to benefit from skilled Occupational Therapy to achieve the following functional goals. Short Term Goals: Goal Formation With patient Patient will perform home exercise program independently Patient will perform upper extremity dressing independently Patient will transfer to bedside commode with minimal assist Patient will tolerate treatment 25 minutes and with fair+ endurance Patient will demonstrate good understanding of safety education, HEP education, and adaptive equipment Carpet Weaver Goal(s): Patient to discharge to appropriate next level of inpatient care Plan: Patient continues to benefit from skilled therapy services., Continue with goals as established. If patient is discharged from the facility, this note serves as a discharge summary if further occupational therapy visits did not occur. Refer to filed flowsheet for further details. Following therapy session, patient left in bed, with bed alarm on , with call light within reach, with Theresa SAMUEL aware, with therapy cues visible on white board. * Rob Cruz MD - 08/04/2024 1:16 PM CDT Hospitalist Progress Note Leeroy Canales is a 33 year old female who is admitted for Septic shoulder/bacteremia Subjective: Patient overall doing well. Afebrile. No nausea or vomiting. Didn't sleep well over theevening. No diarrhea. Objective: Blood pressure 136/86, pulse 87, temperature 99.5 ??F (37.5 ??C), temperature source Oral, resp. rate 17, height 1.702 m (5' 7 ), weight 112.9 kg (248 lb 12.8 oz), last menstrual period 05/11/2024, SpO2 98%, not currently . Gen: NAD HEENT: NCAT, Left eye appears injected (chronic per patient), MMM, dressing over prior Right IJ RESP: Clear to auscultation CV: Nl S1 and S2 No gallops. GI: Soft and non tender. +BS, no HSM EXT: left AKA, Right foot with dressing on right foot. Dressing over right shoulder. Lines: Left IJ for dialysis MAR reviewed Relevant labs reviewed Mag 2.0 Creatinine 4.50 K 4.1 Phos 4.4 Calcium 8.9 Micro Blood cultures 07/29/2024 - 1/2 positive for MRSA 07/30/2024 - NGTD 07/31/2024 - 1/2 positive for staph hominis 08/01/2024 - NGTD 08/02/2024 - NGTD 08/04/2024 - pending Relevant imaging reviewed No new imaging Assessment/Plan: 1) Septic Shoulder with associated MRSA bacteremia - s/p Washout with orthopedics on 07/27/2024 - discussed abscess noted on CT Imaging with ortho - suspected that this is more likely a sequela of the washout - reached out to ID, given clearing infection will plan just for repeat imaging as outpatient - Continue abx per ID - EOT 09/10/2024 - will need repeat CT Chest W contrast around 08/24/24 2) ESRD on HD - appreciate nephrology assistance - will need to discuss with nephrology now that blood cultures have been negative when they would like to pursue more permanent access - nephrology requested repeat cultures today, and anticipate placement of line on Friday. Orders placed. - EPO as per nephrology - continue revela - continue vitamin D 3) Right Foot Osteomyelitis - abx as per ID - seen by vascular surgery no plans for intervention given patient's preference - appreciate wound care 4) HTN - continue coreg and lisinopril 5) Anemia of chronic disease - monitor hgb - epo as per nephrology 6) Type 2 DM - diet controlled 7) Upper extremity DVT - continue heparin gtt - consider switching to eliquis after permcath placement LDA: LEft IJ Diet:renal Antibiotic end date: TBD Consults: Vascular, ID, Nephrology DVT prophylaxis: Heparin gtt Code status: Full code Disposition: continue inpatient care while awaiting final ID plan. Rob Cruz MD [facility] Medicine 08/04/2024 Feel free to text page me through [employer], login [employer] Current Meds 0.9% NaCl 10-40 mL Intracatheter q8h 0.9% NaCl 3 mL Intracatheter q8h ammonium lactate Topical BID carvedilol 12.5 mg Oral BID WC epoetin 5,000 Units Intravenous DIALYSIS TUE, BLUE, & SAT ferrous sulfate 325 mg Oral QDAY WITH BREAKFAST furosemide 40 mg Oral QDAY gabapentin 300 mg Oral FRI, FRI AND FRI lisinopril 20 mg Oral QDAY renal vitamin 1 tablet Oral QDAY sevelamer carbonate 1,600 mg Oral TID WC vancomycin 500 mg Intravenous TU, THUR & SAT vancomycin (VANCOCIN) IV dose per pharmacy Does not apply DIRECTED vitamin D3 5,000 Units Oral QDAY * Roxanna Roth PA-C - 08/04/2024 12:44 PM CDT Images from the original note were not included. [facility] Infectious Diseases Inpatient Progress Note Patient Name: Leeroy Canales 1990 Room: 6603/1 Date of Admission: 07/25/2024 Date of Service: 08/04/2024 Primary Care Physician: CHERISE MARCELO PA-C Attending Physician: Rob Cruz MD Reason for Infectious Disease Consultation Recurrent septic arthritis IMPRESSION MRSA bacteremia Right shoulder pyogenic arthritis Right shoulder osteomyelitis Pneumonia (treated) Cervical spine pain Right heel ulcer, chronic Osteomyelitis right calcaneous ESRD on HD RECOMMENDATIONS - Continue with IV vancomycin - Okay to discontinue blood cultures, negative since 07/30/2024. - Okay to place permanent dialysis line. - Will need repeat CT chest w contrast on or around 08/24/2024 to evaluate for resolution of right subscapularis abscess. - Please obtain CBC w diff, CMP, ESR, CRP, vancomycin trough at least weekly while on IV antibiotics. Thank you for allowing us to participate in the care of this patient. Today ID will sign off. Please call the Ortho ID pager [phone] with any questions. Updated care plan discussed with Dr. Cruz. Infectious Disease Discharge planning: Antibiotics: IV vancomycin, goal trough 15-20 or AUC 400-600 adminstered with HD T- Fri Duration: 6 weeks from first negative blood culture (07/30/2024 - EOT 09/10/2024) Suppression: None Please obtain CT chest with contrast on or around 08/24/2024, Will try to schedule same day as OPATdue to difficulties with transportation. Weekly Labs on IV antibiotics: CBC with diff, CMP, ESR, CRP, vancomycin trough - please fax resultsto [facility] Infectious disease clinic, fax [phone], Attn Roxanna Roth PA-C If there any concerns, please call [facility] infectious disease clinic: phone Follow-up in [facility] ID clinic on: 08/23/2024 and 09/08/2024 [facility] ID clinic [facility] [facility] [address] [place] [address] Clinic phone [phone] Clinic fax [phone] DISCUSSION Leeroy Canales is a 33 year old female with PMH of T2DM, ESRD on HD TTS, HTN, HLD,hx of RUE DVT, anemia, PVD, blindness, s/p L AKA, HFpEF, prior hx of infectious arthritis presenting as OSH transfer from [facility] for 3 day history of right shoulder pain. Recurrent MRSA bacteremia - 07/25, 07/26, 07/29: Bcx 2/2 MRSA; 07/29: Bcx 1/2 MRSA - 07/30: Bcx No growth - 07/31: Bcx 1/ Staph hominis (likely contamination) - 08/01 & 08/02 BCx: In process - Potential Sources: Dialysis catheter, shoulder septic arthritis, chronic right heel ulcer, DVT RUE - Source control: - 07/28: Right IJ tunneled dialysis catheter removed - 07/27 s/p OR I&D right shoulder - Right subscapularis abscess - Repeat CT chest in 4 weeks to evaluation for resolution - Vascular intervention right foot osteomyelitis - patient declines - Evaluation: - TTE and TTE negative for vegetations - MRI cervical spine - negative for osteomyelitis / epidural abscess - 07/30: RUE venous doppler with DVT Right IJ and Superficial thrombus right cephalic - On IV vancomycin DVT Right IJ Superficial thrombus right cephalic vein - On IV vancomycin, right IJ line removed Right shoulder pyogenic arthritis Right shoulder osteomyelitis - OSH CT right shoulder: prominent erosive changes of the right humeral head and greater tuberosity, as well as the right coracoid process, prominent thickening of the shoulder capsule, right shoulder effusion - 07/25: OSH right shoulder aspiration, gram stain with GPC in clusters, cultures in process - 07/26: X-rays right shoulder concerning for osteomyelitis. - 07/26: Shoulder aspiration: Fluid with 219,660 nucleated cells, 97% neutrophils. Path - Acute inflammatory infiltrate, Intracellular microorganisms, minimal blood contamination. Cultures with MRSA - 07/27: OR for right shoulder I&D. Multiple purulent pockets. Cultures with MRSA. - 07/27: CT Chest abd pelvis with 2.9 cm subscapularis abscess with adjacent osteomyelitis of right humeral head and septic arthritis. Ortho considers likely post operative fluid collection. - On IV vancomycin Pneumonia (treated) - OSH CT CAP with bilateral pulmonary infiltrates suggesting bilateral pneumonia, cardiomegaly. - Repeat CT CAP 07/27 shows pulmonary edema. - Previously finished IV azithromycin. Now On IV vancomycin. Cervical spine pain - likely referred from right shoulder - MRI cervical spine negative for acute findings Chronic right heel ulcer Osteomyelitis right calcaneous - Tunnels to bone - appreciate vascular consult - Right ABIs normal ESRD on HD - Tunneled dialysis catheter removed 07/28 - temporary non-tunneled cath placed 07/30 left IJ CDC Screening - Previous HIV and hepatitis C screening negative QTC: 452 (05/17/2024) Renal Function: Estimated Creatinine Clearance: 23.5 mL/min (A) (by C-G formula based on SCr of 4.5mg/dL (H)). Hardware: None Thank you for allowing us to participate in the care of this patient. Today ID will sign off. Please call the [facility] ID pager [phone] with any questions. I spent 35 mins in the care of this patient to include chart review, coordination of care, and patient interview / examination / education independent from the attending physician. I spent an additional 10 mins in discussion with attending physician Dr. Garcia regarding patient case. Patient seen and examined, case discussed with ID attending. JESSICA Sorensen, PAJose EnriqueC Division of Infectious Diseases Contact: [employer] Secure Chat preferred ID Clinic ID Clinic Subjective History of Present Illness: Leeroy Canales is a 33 year old female with PMH of T2DM, ESRD on HD TTS, HTN, HLD, hx of RUE DVT, anemia, PVD, blindness, s/p L AKA, HFpEF, prior hx of infectious arthritis presenting as OSH transfer from [facility] for 3 day history of right shoulder pain. Patient reports that her neck started hurting about 1 week ago and her shoulder pain started 3 days prior to presenting to [facility]. Patient states that she felt right shoulder pain upon waking up one morning and it has progressed to become a 10/10, deep throbbing pain that she also feels in her upper arm. Pain is more severe on movement. Denies any trauma to the area. Also reports that for about two weeks, she has been experiencing cold sweats and fevers. Patient comes from a nursing facility ([facility]) where she was receiving rehab for prosthetic for LLE. At [facility] (OSH) labs revealed WBC 12.9k, Hb 10.3, plt 255; ESR 90, CRP 29.4; CMP remarkable for Na 131. Synovial fluid of R shoulder showing 92% neutrophils. Azithro, cefepime, vancomycin started at OSH. OSH imaging notable for the following: Shoulder x-ray showing mild osteoarthritis of acromioclavicular joint. Shoulder CT showing prominent erosive changes of the right humeral head and greater tuberosity, as well as the right coracoid process, prominent thickening of the shoulder capsule, right shoulder effusion CT chest abdomen pelvis showing bilateral pulmonary infiltrates suggesting bilateral pneumonia, cardiomegaly . Patient transferred to [facility] on 07/25/2024 for further evaluation of bilateral pneumonia and Right shoulder pyogenic arthritis. ID consulted for antibiotic management in the setting of recurrent pyogenic right shoulder. Patient reports tunneled dialysis line was placed in February 2024, has never been removed or replaced. Previous [facility] Hx: 04/26/2023 -05/09/2023: Presented for for foot osteomyelitis. Discharged with IV vancomycin, IV cefepime, PO flagyl. Discharge complicated by RUE DVT brachial vein causing readmission. Patient completedtherapy with doxycycline 100 mg BID, ciprofloxacin 750 mg BID, and flagyl 500 mg TID. EOT 06/07/2023. 02/22/2024 - 03/02/2024: Presented for MRSA bacteremia, left pectoralis abscess with concerns for osteomyelitis of left shoulder. Abscess near left shoulder aspiration by IR with 11 ml Pus, gram stain no organisms and culture no growth. Right shoulder aspirated with 4300 WBC (not concerning for septic arthritis per previous ID note. Patient treated with 6 weeks of antibiotics with EOT 04/07/2024 - was discharged on vancomycin and at some point transitioned to PO linezolid to complete treatment. 05/23/2024 - 06/03/2024: Presented to [facility] with left shoulder pain, found to have left shoulder septicbursitis, ?osteomyelitis. During this admission, blood cultures negative. OSH aspiration culture negative. [facility] shoulder aspiration culture negative. Synovial fluid with 6k nucleated cells, 83% neutrophils. MRI left shoulder consistent with septic bursitis but no osteomyelitis. Evaluated by rheumatology with no signs of inflammatory arthropathy. Treated with 4 weeks IV vancomycin, IV cefepime, EOT 06/21/2024. Hospital Course: 07/25: Bcx (2/2) +MRSA 07/26: Bcx (2/2) + MRSA 07/26: Right shoulder aspiration. 219,660 nucleated cells, 97% neutrophils. Path - Acute inflammatory infiltrate, Intracellular microorganisms, minimal blood contamination. GPCs on gram stain. Cultures with MRSA 07/27: OR with ortho for I&D of right shoulder. Per op note: copious purulence noted in subdeltoid region, 85-90 mL evaluated from joint. Walled-off purulence identified from posterior aspect of humeral head as well as infraglenoid pouch. Purulence up and down bicipital tendon found. Cultures with MRSA 07/27: CT CAP - Pulmonary edema, right subscapularis abscess (2.9 cm) 07/28: TTE with no vegetations, obtain MATT if concerns for endocarditis 07/28: Bcx 2/2 MRSA 07/28: Vascular surgery recommends CT right foot w contrast; shows calcaneal osteomyelitis. Recommends amputation right foot, patient declines at this time 07/29: Bcx 11/04 MRSA 07/30: Bcx no growth 07/30: MRI C Spine wwo contrast: No acute cervical spine findings 07/30: Right venous duplex: DVT Right IJ, superficial thrombus right cephalic vein 07/30: Left IJ juan catheter placed by nephrology 07/31: Bcx 11/03 - Staph Hominis 08/01: Bcx No growth 24 hours 08/02: Bcx No growth 24 hours Interval history: Today 08/04/2024: Right shoulder pain well controlled. No fevers, chills, nausea, vomiting, diarrhea, shortness of breath. Tolerating antibiotics with no concerns. CMP stable, no new CBC for review. 08/02/2024: Has increased pain in right shoulder from moving / bathing today. No fevers, chills, nausea, vomiting, diarrhea, cough, shortness of breath. Tolerating antibiotics. Appetite has been down. WBC 14.8, Hgb 9.1, Hct 29.7, plt 520. CMP stable. 07/30/2024: MRI cervical spine and RUE venous duplex completed this AM pending reads. Going for MATT today. Feels more like myself. No fevers, chills, nausea, vomiting, diarrhea. Tolerating antibiotics. WBC 9.6. CMP stable. 07/28/2024: Continues to feel feverish and chilled. No nausea, vomiting, diarrhea, rashes, itching, shortness of breath, cough. Cervical pain almost resolved. Right shoulder pain present but slightly improved from yesterday. 07/26 Bcx with GPCs, pending speciation. WBC 11.0. Tolerating IV vancomycin 07/27/2024: Patient in HD. Continues to have fevers and chills. No nausea / vomiting / diarrhea / rashes / itching. Continues to have severe pain in right shoulder. Has some pain in the neck. No otherjoint pain. No shortness of breath / cough / difficulty breathing. Currently on IV vancomycin, IV cefepime, IV azithromycin. CT CAP w contrast completed today pending read. WBC 11.7, CRP 28.3, ESR 120. Creatinine 9.99, GFR 5. Medical History Past Medical History: Diagnosis Date [...] use: Denies history Marital status: Single Children: No Living situation: Resides at [place], [place] Travel Hx: no international travel Sick contacts: denies recent contacts HIV status: Negative 02/2024 Hepatitis Status: Negative 05/2024 Prosthetic / Implant History: None Immunizations: Immunization [...] Grandmother Review of Systems Review of Systems HENT: Negative. Eyes: Blind Respiratory: Negative. Cardiovascular: Negative. Gastrointestinal: Negative. Genitourinary: Negative. Musculoskeletal: Right shoulder pain, neck pain Skin: Negative for itching and rash. Chronic right heel ulcer Neurological: Negative. Endo/Heme/Allergies: Negative. Psychiatric/Behavioral: Negative. Allergies No Known Allergies Antimicrobial History Current Antibiotics IV vancomycin (07/26 - ) Prior Antibiotics At [facility] IV cefazolin (07/27) - intra-op IV cefepime (07/26 - 07/27) IV azithromycin (07/26 - 07/27 ) Prior Antibiotics at OSH Home Medications Prior to Admission medications Medication Sig Start Date End Date Taking? Authorizing Provider acetaminophen (Tylenol) 500 MG tablet Take 1 (one) tablet by mouth every 4 hours Maximum allowable Acetaminophen amount = 4 Grams (4000 mg) / 24 hours. 03/02/24 Yes Martine Morrissey MD Alcohol Swabs (Alcohol Prep) 70 % USE ONE SWAB TO CLEAN SKIN FOUR TIMES DAILY BEFORE TESTING 12/12/22Amanda Georges MD amLODIPine (Norvasc) 10 MG tablet Take 1 (one) tablet by mouth once daily 02/28/24 Yes Geronimo Burleson MD bisacodyl (Dulcolax) 10 MG suppository Insert 1 (one) suppository into the rectum once daily as needed for Constipation 02/28/24 Geronimo Burleson MD blood glucose (OneTouch Verio) test strip USE ONE STRIP TO TEST BLOOD SUGAR FOUR TIMES DAILY 12/12/22Yes Amanda Georges MD Blood Glucose Monitoring Suppl (OneTouch Verio Reflect) w/Device KIT Use 1 kit 4 times daily USE METER TO CHECK BLOOD GLUCOSE FOUR TIMES DAILY Reasons: CALL [facility] WHEN DELIVERING [id number] 12/12/22 Amanda Georges MD carvedilol (Coreg) 12.5 MG tablet Take 1 (one) tablet by mouth 2 times daily with morning and evening meal 12/12/22 Yes Rosi Menard APRNLEEROY FeroSul 325 (65 Fe) MG tablet Take 1 (one) tablet by mouth daily with breakfast 08/08/22 Yes ProviderRebel MD furosemide (Lasix) 40 MG tablet Take 1 (one) tablet by mouth every Friday, Friday & Friday05/23/23 Yes Willard Estrella MD gabapentin (Neurontin) 100 MG capsule Take 1 (one) capsule by mouth 3 times daily 12/27/22 Yes ProviderRebel MD insulin lispro (HumaLOG;ADMelog) 100 UNIT/ML pen Inject 0 (zero) Units to 6 (six) Units subcutaneously 3 times daily with meals Patient not taking: Reported on 07/26/2024 05/09/23 Joe Vargas MD Lancets (ONETOUCH DELICA PLUS 33G EXTRA FINE LANCET) USE ONE LANCET TO PRICK FINGER FOUR TIMES DAILY FOR BLOOD GLUCOSE TESTING 12/12/22 Amanda Georges MD lisinopril (Prinivil; Zestril) 20 MG tablet Take 1 (one) tablet by mouth once daily 02/29/24 Yes Geronimo Burleson MD melatonin 3 MG tablet Take 1 (one) tablet by mouth nightly as needed for Insomnia 05/09/23 Yes Joe Vargas MD nystatin (Mycostatin) 674011 UNIT/GM powder Apply to affected area 3 times daily 12/12/22 Yes Rosi Menard APRN-LEEROY oxyCODONE, immediate release, (Roxicodone) 10 MG tablet Take 1 (one) tablet by mouth every 4 hours as needed 06/03/24 Yes Franck Hennessy MD polyethylene glycol 3350 (Miralax) 17 g packet Take 17 (seventeen) g by mouth once daily Patient not taking: Reported on 05/23/2024 02/28/24 Geronimo Burleson MD renal vitamin (Dialyvite) tablet Take 1 (one) tablet by mouth once daily 02/28/24 Geronimo Burleson MD senna (Senokot) 8.6 MG tablet Take 1 (one) tablet by mouth once daily 02/28/24 Geronimo Burleson MD sevelamer carbonate (Renvela) 800 MG Take 1 (one) tablet by mouth 3 times daily with meals 02/28/24 Geronimo Burleson MD Objective Vitals BP 136/86 (BP Location: Left arm, Patient Position: Lying) Pulse 87 Temp 99.5 ??F (37.5 ??C) (Oral) Resp 17 Ht 1.702 m (5' 7 ) Wt 112.9 kg (248 lb 12.8 oz) SpO2 98% Temp (24hrs), Av ??F (37.2 ??C), Min:98.5 ??F (36.9 ??C), Max:99.5 ??F (37.5 ??C) Physical Exam PHYSICAL EXAM General: Alert, no distress, not toxic appearing, laying in bed, appears comfortable, talking on the phone. Head: Normocephalic, atraumatic EENT: Blind, anicteric sclera. Nose Normal. No thrush. Dentition Fair. Neck: Supple Chest wall: No tenderness or deformity, Right tunneled IJ removed. Left IJ catheter in place Lungs: Breathing comfortably, in no acute respiratory distress Extremities: Left AKA. Right lower leg with edema and chronic venous changes and chronic wounds to RLE, right heel ulcer present. Right shoulder with post surgical dressing Skin: No rashes. Neurologic: Alert and oriented x 3, moving all extremities Psychiatry: Appropriate mood/affect Lines: Left upper extremity midline, Non-tunneled HD line left IJ Lab Review CBC: Recent Labs Component Name 08/02/24 0804 08/01/24 0042 07/31/24 1720 WBC 14.8* 15.0* 15.1* RBC 3.12* 3.12* 3.29* HGB 9.1* 9.0* 9.6* HCT 29.7* 29.7* 31.1* MCV 95.2 95.2 94.5 BMP: Recent Labs Component Name 08/04/24 0254 08/03/24 0538 08/02/24 0804 05/25/24 0643 05/24/24 0625 02/23/24 0737 02/22/24 2214 06/10/23 0939 NA 137 136 139 - 139 - 136 143 CL 98 100 102 - 104 - 100 110* CO2 28 25 26 - 26 - 26 25 BUN 19 37* 35* - 33* - 21 8 CREATININE 4.50* 6.54* 6.11* - 3.64* - 4.88* 1.96* ALB 1.9* 1.7* 1.7* - 1.9* - 1.5* 1.5* PROT - - - - 7.2 - 8.1 5.8* - = values in this interval not displayed. estimated creatinine clearance is 23.5 mL/min (A) (by C-G formula based on SCr of 4.5 mg/dL (H)). LFTs: Recent Labs Component Name 05/24/24 0625 02/22/24221306/10/23 0939 12/02/22 1955 08/25/22 0315 08/24/22 1404 08/24/22 0725 ALKPHOS 170* 221* 139 - - - - ALT 25 11 8 - - - - AST 14 7 12 - - - - ALBUMIN - - - - 2.0* 2.1* 1.7* - = values in this interval not displayed. Coagulation: Recent Labs Component Name 08/04/24 0355 08/04/24 0254 08/03/24 2035 08/03/24 1107 08/03/24 0538 08/02/24 1753 08/02/24 0804 PT - 14.6 - - 14.5 - 13.3 INR - 1.2 - - 1.2 - 1.0 PTT 156.7* 169.8* 103.7* - 150.1* - 43.2* - = values in this interval not displayed. ESR: Recent Labs Component Name 08/01/24 11207/25/24 2316 05/24/24 0548 ESR 128* 120* 114* CRP: Recent Labs Component Name 08/01/24 1121 07/25/24 2316 05/24/24 0625 CRP 10.1* 28.3* 1.4* CK: No results for input(s): CK in the last 80775 hours. Microbiology, Imaging and other diagnostic tests MICROBIOLOGY: Blood culture: 07/25/2024: 2/2 MRSA 07/26/2024: 2/2 MRSA 07/28/2024: 2/2 MRSA 07/29/2024: 1/2 MRSA 07/30/2024: 2/2 No growth 07/31/2024: 1/1 Staph hominis 08/01/2024: No growth 24 hours 08/02/2024: No growth 24 hours Right shoulder aspiration bedside 07/26/2024: Gram stain: Heavy PMNs, Light GPCs Culture: MRSA Fluid: 219,660 nucleated cells, 97% neutrophils. Path - Acute inflammatory infiltrate, Intracellular microorganisms, minimal blood contamination Right shoulder I&D OR 07/27/2024: MRSA Other Serologies: 05/31/2024: Hepatitis C non-reactive 02/24/2024: HIV non-reactive HISTOPATHOLOGY: None at this admission IMAGING & PROCEDURES: Pertinent images independently reviewed; report in chart MRI Cervical spine wwo contrast 07/30/2024 IMPRESSION: 1. Normal MRI of the cervical spine. [...] vein CT FOOT RIGHT W CONTRAST 07/28/2024 IMPRESSION: Wound at the plantar aspect of [...] CT CHEST ABDOMEN PELVIS W CONTRAST 07/27/2024 Impression: 1.A 2.9 cm right subscapularis abscess with adjacent osteomyelitis of the right humeral head and septic arthritis. There is a surgical drain likely in the glenohumeral joint space. 2.An ill-defined fluid collection adjacent to the left humerus without a well-defined rim which may represent an early developing abscess versus phlegmon. 3.Cardiomegaly with pulmonary edema. 4.Dendriform pulmonary ossifications in the lung bases Associated attestation - Rio Garcia MD - 08/04/2024 5:07 PM CDT Infectious Diseases Attending Attestation For this patient encounter, IRio MD, in collaboration with Roxanna Roth PA-C have reviewed their work records and practice regarding quality and appropriateness of professional services provided. I discussed this patient with Roxanna Roth PA-C and reviewed their documentation and agree with history, physical examination findings, assessment, and plan of care. Additionally, I reviewed labwork, relevant imaging, and pertinent history. I agree with the assessment and plan as detailed in their note. Briefly: Leeroy Canales is a 33 year old patient with a past medical history significant for recurrent MRSA bacteremia, essential hypertension, type 2 diabetes mellitus, hyperlipidemia, obesity, heart failurewith preserved ejection fraction, PAD, right lower extremity non-healing ischemic ulcers, prior right calcaneal osteomyelitis, left foot necrotizing soft tissue infection s/p left AKA, depression, who is currently admitted for recurrent MRSA bacteremia. Recurrent high-grade MRSA bacteremia Right shoulder septic arthritis Right subscapularis abscess Right humeral head osteomyelitis Concern for central line-associated BSI now removed Central line associated acute DVT right IJ February 2024 admitted to [facility] for MRSA bacteremia with left [...] at nursing facility. May 2024 admitted to [facility] for suspected infectious left shoulder bursitis; ID treated empirically with cefepime and vancomycin for 4 weeks 07/26/2024 right shoulder aspiration; cultures grew MRSA 07/27/2024 right shoulder arthrotomy, drainage of septic shoulder with irrigation and debridement, right shoulder synovectomy; cultures grew MRSA 07/30/2024 MATT showed no vegetations Left humerus fluid collection Unclear if there is an underlying infectious process at this time PAD c/b non-healing ischemic ulcers Right foot chronic ulcers Right ankle and hindfoot osteomyelitis 04/15/2023 right [...] foot showed chronic changes, no acute process Recommendations Complete 6 weeks of vancomycin IV with HD from first negative blood culture through 09/10/2024 with surveillance shoulder imaging to re-assess persistent fluid collection ID will sign off. Please see Roxanna Roth PA-C note for full details. I have spent >35 minutes with the patient and/or guardian ([id number]) or on the patient? s floor/unit, of which more than 50% of the time was spent in counseling and/or coordination of care. Rio Garcia MD Infectious Diseases Attending [facility] * Theresa Preston RN - 08/04/2024 11:10 AM CDT Problem: Pain/Discomfort Goal: Patient exhibits reduced pain/discomfort as evidenced by pain scores Outcome: Progressing Problem: Fall Risk Goal: Fall risk and fall related injury risk are minimized (interventions related to the fall risk can be found in the flowsheet documentation) Outcome: Progressing Problem: Hemodynamic Status/Cardiac Output Goal: Patient has stable vital signs and fluid balance Outcome: Progressing * Jameel Beal MSW - 08/04/2024 9:05 AM CDT Social Work Progress Note Pt is resident of [facility]; SW sent clinicals via [employer] for facility awareness. Per 07/29/24 SW note facility confirmed pt may return upon dc. If additional SW needs arise, please consult. Jameel Beal LMSW * Imelda Gutierrez RN - 08/04/2024 5:24 AM CDT Problem: Pain/Discomfort Goal: Patient exhibits [...] in the flowsheet documentation) Outcome: Progressing Problem: Nutrient: Increased nutrient needs (specify) Goal: Total intake will meet estimated nutrient needs Outcome: Progressing Problem: Hemodynamic Status/Cardiac Output Goal: Patient has stable vital signs and fluid balance Outcome: Progressing Problem: Fluid and Electrolyte Imbalance Goal: Fluid and electrolyte balance are achieved/maintained Outcome: Progressing Problem: Infection Goal: Signs and symptoms of infections are decreased or avoided Outcome: Progressing Problem: Balance Goal: LTG - Patient will demonstrate Intervention to enhance balance for safe completion of daily activities Outcome: Progressing Problem: Skin Integrity Goal: Skin integrity is maintained or improved Outcome: Progressing * Theresa Preston RN - 08/03/2024 5:44 PM CDT Problem: Pain/Discomfort Goal: Patient exhibits reduced pain/discomfort as evidenced by pain scores Outcome: Progressing Problem: Fall Risk Goal: Fall risk and fall related injury risk are minimized (interventions related to the fall risk can be found in the flowsheet documentation) Outcome: Progressing Problem: Hemodynamic Status/Cardiac Output Goal: Patient has stable vital signs and fluid balance Outcome: Progressing * Rob Cruz MD - 08/03/2024 2:51 PM CDT Hospitalist Progress Note Leeroy Canales is a 33 year old female who is admitted for Septic shoulder/bacteremia Subjective: Patient seen while at dialysis. No fevers or chills. No nausea or vomiting. No chest pain. No shortness of breath. Objective: Blood pressure 146/82, pulse 88, temperature 98.5 ??F (36.9 ??C), temperature source Oral, resp. rate 17, height 1.702 m (5' 7 ), weight 112.9 kg (248 lb 12.8 oz), last menstrual period 05/11/2024, SpO2 97%, not currently . Gen: NAD HEENT: NCAT, EOMI, MMM, dressing over prior Right IJ RESP: Clear to auscultation CV: Nl S1 and S2 No gallops. GI: Soft and non tender. +BS, no HSM EXT: left AKA, Right foot with dressing on right foot. Dressing over right shoulder. Lines: Left IJ for dialysis MAR reviewed Relevant labs reviewed Mag 2.1 Creatinine 6.54 K 40 Phos 6.1 Calcium 8.3 Micro Blood cultures 07/29/2024 - 1/2 positive for MRSA 07/30/2024 - NGTD 07/31/2024 - 1/2 positive for staph hominis 08/01/2024 - NGTD 08/02/2024 - NGTD Relevant imaging reviewed No new imaging Assessment/Plan: 1) Septic Shoulder with associated MRSA bacteremia - s/p Washout with orthopedics on 07/27/2024 - discussed abscess noted on CT Imaging with ortho - suspected that this is more likely a sequela of the washout - reached out to ID, given clearing infection will plan just for repeat imaging as outpatient - Continue abx per ID 2) ESRD on HD - appreciate nephrology assistance - will need to discuss with nephrology now that blood cultures have been negative when they would like to pursue more permanent access - EPO as per nephrology - continue revela - continue vitamin D 3) Right Foot Osteomyelitis - abx as per ID - seen by vascular surgery no plans for intervention given patient's preference - appreciate wound care 4) HTN - continue coreg and lisinopril 5) Anemia of chronic disease - monitor hgb - epo as per nephrology 6) Type 2 DM - diet controlled 7) Upper extremity DVT - continue heparin gtt - consider switching to eliquis after permcath placement LDA: LEft IJ Diet:renal Antibiotic end date: TBD Consults: Vascular, ID, Nephrology DVT prophylaxis: Heparin gtt Code status: Full code Disposition: continue inpatient care while awaiting final ID plan. Rob Cruz MD [facility] Medicine 08/03/2024 Feel free to text page me through [employer], login [employer] Current Meds 0.9% NaCl 3 mL Intracatheter q8h ammonium lactate Topical BID carvedilol 12.5 mg Oral BID WC epoetin 5,000 Units Intravenous DIALYSIS TUE, BLUE, & SAT ferrous sulfate 325 mg Oral QDAY WITH BREAKFAST furosemide 40 mg Oral QDAY gabapentin 300 mg Oral MON, WED AND FRI lisinopril 20 mg Oral QDAY renal vitamin 1 tablet Oral QDAY sevelamer carbonate 1,600 mg Oral TID WC vancomycin 500 mg Intravenous , UR & SAT vancomycin (VANCOCIN) IV dose per pharmacy Does not apply DIRECTED vitamin D3 5,000 Units Oral QDAY * Mari Nolan RN - 08/03/2024 2:44 PM CDT 08/03/24 1254 Post Hemodialysis Patient Response to Treatment Pt tolerated tx well without complications Post Dialysis Patient Status Treatment Completed Ultrafiltration Amount (ml) 3019 Dialyzer Clearance Clear Amount of blood processed (Liters) 77.6 Post Hemodialysis Comment UF goal reached, tx completed, blood returned, VSS * Gretchen Phan PT - 08/03/2024 1:23 PM CDT [facility] Department of Physical Medicine & Rehabilitation Progress Note Patient: Leeroy Canales Med Record Number: [id number] Date of : 1990 Age: [age] year old 08/03/24 1300 Missed Visit Patient off the floor Dialysis * Mari Nolan RN - 08/03/2024 12:59 PM CDT Problem: Hemodynamic Status/Cardiac Output Goal: Patient has stable vital signs and fluid balance Outcome: Progressing Problem: Fluid and Electrolyte Imbalance Goal: Fluid and electrolyte balance are achieved/maintained Outcome: Progressing Problem: Infection Goal: Signs and symptoms of infections are decreased or avoided Outcome: Progressing * Helen Alexandre RN - 08/03/2024 12:29 PM CDT Care Coordination Progress Note Expected Discharge Date: 08/05/2024: Discharge Plan: This CM spoke with the Admission direct with [address] patient resides. They stated they haven't had any contact with anyone from the hospital. CM gave them an update on patient condition and plan of care. The direct stated she had to talk with the DON about the IVABX and if they are willing to supply the medication. Family Support (Name and Phone): Extended Emergency Contact Information Primary Emergency Contact: Silvia Resendiz Mobile Relation: Mother Clerical Coordinator needed? No Secondary Emergency Contact: GAYE BEAL Mobile Relation: Sister Clerical Coordinator needed? No Transportation at Discharge: : READMISSION RISK SCORE is 25 at 12:29 PM 08/03/2024.: Name: Helen Alexandre RN * Bethanie Guerra OT - 08/03/2024 10:29 AM CDT [facility] Department of Physical Medicine & Rehabilitation Progress Note Patient: Leeroy Canales Med Record Number: [id number] Date of : 1990 Age: [age] year old 08/03/24 0935 Missed Visit Missed Visit Procedure Off Floor Patient off the floor Dialysis * Severiano Foss MD - 08/03/2024 9:05 AM CDT [facility] Nephrology Progress Note Date of Service: 08/03/2024 INTERVAL HISTORY: No acute adverse events overnight. Blood cultures from 08/01 and 08/02 are pending. Plan for HD today with an UF goal of 3 L. Continued on vancomycin treatment. Hospital Medications: 0.9% NaCl 3 mL Intracatheter q8h ammonium lactate Topical BID carvedilol 12.5 mg Oral BID WC epoetin 5,000 Units Intravenous DIALYSIS E, FRI, & SAT ferrous sulfate 325 mg Oral QDAY WITH BREAKFAST furosemide 40 mg Oral QDAY gabapentin 300 mg Oral FRI, FRI AND FRI lisinopril 20 mg Oral QDAY renal vitamin 1 tablet Oral QDAY sevelamer carbonate 1,600 mg Oral TID WC vancomycin 500 mg Intravenous , & SAT vancomycin (VANCOCIN) IV dose per pharmacy Does not apply DIRECTED vitamin D3 5,000 Units Oral QDAY heparin, 0-40 Units/kg/hr, Last Rate: 24 Units/kg/hr (08/03/24 0302) Physical Exam: Vitals: 08/02/24 0836 08/02/24 1229 08/02/24 1443 08/03/24 0739 BP: 147/82 150/93 143/89 129/68 Pulse: 87 84 77 85 Resp: 16 16 18 18 Temp: 98.4 ??F (36.9 ??C) 98.9 ??F (37.2 ??C) 98.8 ??F (37.1 ??C) 98.8 ??F (37.1 ??C) SpO2: 94% 98% 97% 98% Weight: Height: Intake/Output Summary (Last 24 hours) at 08/03/2024 0905 Last data filed at 08/02/2024 1758 Gross per 24 hour Intake 420 ml Output -- Net 420 ml Physical Exam Constitutional: Appearance: She is obese. HENT: Head: Normocephalic and atraumatic. Cardiovascular: Rate and Rhythm: Normal rate and regular rhythm. Pulses: Normal pulses. Pulmonary: Effort: Pulmonary effort is normal. Breath sounds: Normal breath sounds. Musculoskeletal: Right lower leg: No edema. Comments: Left leg AKA Access: HEIDY Martinez catheter LABS: Recent Labs Component Name 08/03/24 0538 08/02/24 0804 08/01/24 0042 NA 136 139 135* POTASSIUM 4.0 4.0 4.0 CL 100 102 100 CO2 25 26 26 BUN 37* 35* 24 CREATININE 6.54* 6.11* 5.20* Recent Labs Component Name 08/03/24 0538 08/02/24 0804 08/01/24 0042 CALCIUM 8.3* 8.6 7.7* PHOS 6.1* 6.5* 4.7 ALB 1.7* 1.7* 1.7* Recent Labs Component Name 02/25/24 0110 PTHINTACT 93.0* Recent Labs Component Name 08/02/24 0804 08/01/24 0042 07/31/24 1720 WBC 14.8* 15.0* 15.1* HGB 9.1* 9.0* 9.6* Recent Labs Component Name 06/02/24 0552 02/25/24 0110 IRON 42 23* TIBC 208* 149* FERRITIN 484* 833* ASSESSMENT ESRD on maintenance dialysis: -Plan for HD today per her TTS schedule -Access: HEIDY Martinez -Will plan for TDC once the blood cultures are negative Chronic kidney disease-mineral and bone disorder (CKD-MBD): -Ca-8.3 mg/dl, P-6.1 mg/dl -PTH-93.0 pg/ml-below goal -Vitamin D-12.3 ng/ml-deplete Anemia of chronic kidney disease on dialysis: -Hb-9.1 g/dl-below goal Hypertension: -BP-146/82 mmHg RECOMMENDATIONS 1.Please continue antihypertensive medications and adjust dosage as necessary 2.Continue Epo 5000 U IV every TTS 3.Continue ferrous sulfate 325 mg qdaily 4.Continue sevelamer 1600 mg TID 5.Continue Cholecalciferol 5000 U qdaily Please refer to the initial nephrology consult note for additional information. Severiano Maguire MD Nephrology Fellow * Helen Alexandre RN - 08/03/2024 8:13 AM CDT Care Coordination Progress Note Expected Discharge Date: 08/05/2024: Discharge Plan: Patient is new to this . Per chart review patient does out patient HD and [facility] in [address] Family Support (Name and Phone): Extended Emergency Contact Information Primary Emergency Contact: Silvia Resendiz Mobile Relation: Mother Clerical Coordinator needed? No Secondary Emergency Contact: GAYE BEAL Mobile Relation: Sister Clerical Coordinator needed? No Transportation at Discharge: : READMISSION RISK SCORE is 25 at 8:13 AM 08/03/2024.: Name: Helen Alexandre RN * Mari Nolan RN - 08/03/2024 6:39 AM CDT REPORT BEFORE DIALYSIS Diagnosis (BOBBY/CKF): CKF Non-Renal Diagnosis:MRSA bacteremia Isolation:Contact Does patient have signs or symptoms of respiratory infection (fever, cough, shortness of breath): no Allergies:No Known Allergies Code Status:Full Code Orientation Status: x4 On telemetry/Rhythm: yes, NSR Oxygen: RA Given any medications: See MAR Need for pain medications: See MAR Blood pressure issues: no On any drips: yes, heparin Is patient diabetic: yes Any labs to draw: no Any other procedures today: no Any concerns about this patient: no Any medications to be given with dialysis: yes, see MAR Due date of next Central Line Dressing change: 08/06/2024 Primary RN educated on Incapacitated Nurse: yes * Imelda Gutierrez RN - 08/03/2024 5:33 AM CDT Problem: Pain/Discomfort Goal: Patient exhibits [...] in the flowsheet documentation) Outcome: Progressing Problem: Nutrient: Increased nutrient needs (specify) Goal: Total intake will meet estimated nutrient needs Outcome: Progressing Problem: Hemodynamic Status/Cardiac Output Goal: Patient has stable vital signs and fluid balance Outcome: Progressing Problem: Fluid and Electrolyte Imbalance Goal: Fluid and electrolyte balance are achieved/maintained Outcome: Progressing Problem: Infection Goal: Signs and symptoms of infections are decreased or avoided Outcome: Progressing Problem: Balance Goal: LTG - Patient will demonstrate Intervention to enhance balance for safe completion of daily activities Outcome: Progressing Problem: Skin Integrity Goal: Skin integrity is maintained or improved Outcome: Progressing * Stuart Teresa MD - 08/02/2024 6:22 PM CDT Patient is transferred from [facility] to [facility]. She is here for MRSA bacteremia, is receiving IV abx, ID on board. At the time of my visit, patient resting comfortably. HD okay, labs okay. Refer to Dr. Roth's note for further details. Stuart Cortez MD * Theresa Preston RN - 08/02/2024 6:19 PM CDT Problem: Pain/Discomfort Goal: Patient exhibits reduced pain/discomfort as evidenced by pain scores Outcome: Progressing Problem: Hemodynamic Status/Cardiac Output Goal: Patient has stable vital signs and fluid balance Outcome: Progressing * Aneta Lopez MD - 08/02/2024 4:24 PM CDT ATTENDING NEPHROLOGY PROGRESS NOTE PT NAME : Leeroy Canales PT Date of admit : 07/25/2024 8:15 PM SUBJECTIVE: Seen at the bed side, looks more comfortable, KEEGAN APODACA pending Brief Hx: ESRD 2/2 DM2 on HD TTS and other co morbidities as noted in house staff note p/w right shoulder pain,imaging concerning for OM in the setting of known pyogenic arthritis, Nephrology consulted for HD needs Underwent I&D 07/27 Dialysis tunneled catheter was removed on July 28 to give a line free holiday in the settingof the positive blood cultures and a Trialysis temporary catheter was placed in the left IJ due to concerns of a DVT in the right IJ. OBJECTIVE: VITALS: Patient Vitals in the past 8 hrs: 08/02/24 1443, BP:143/89, Temp:98.8 ??F (37.1 ??C), Temp src:Oral, Pulse:77, Resp:18, SpO2:97 % 08/02/24 1229, BP:150/93, Temp:98.9 ??F (37.2 ??C), Pulse:84, Resp:16, SpO2:98 % 08/02/24 0836, BP:147/82, Temp:98.4 ??F (36.9 ??C), Pulse:87, Resp:16, SpO2:94 % I/O: Intake/Output Summary (Last 24 hours) at 08/02/24 1624 Last data filed at 08/02/24 1039 Gross per 24 hour Intake: 120 ml Output: -- Net : 120 ml PHYSICAL EXAM: General: NAD HEENT: EOMI PERRL Neck: No JVD Chest: NVB Heart: S1 S2 Abdomen: NT ND Extremities: No edema Neuro: Intact Access: [facility] Exam otherwise grossly unremarkable. MEDS: 0.9% NaCl, 3 mL, Intracatheter, q8h ammonium lactate, , Topical, BID carvedilol, 12.5 mg, Oral, BID WC epoetin, 5,000 Units, Intravenous, DIALYSIS TUE, BLUE, & SAT ferrous sulfate, 325 mg, Oral, QDAY WITH BREAKFAST furosemide, 40 mg, Oral, QDAY gabapentin, 300 mg, Oral, MON, WED AND FRI lisinopril, 20 mg, Oral, QDAY renal vitamin, 1 tablet, Oral, QDAY sevelamer carbonate, 1,600 mg, Oral, TID WC [START ON 08/03/2024] vancomycin, 500 mg, Intravenous, TUES, THUR & SAT vancomycin (VANCOCIN) IV dose per pharmacy, , Does not apply, DIRECTED vitamin D3, 5,000 Units, Oral, QDAY PRN MEDS: SALINE LOCK, INSERT AND MAINTAIN AND 0.9% NaCl AND 0.9% NaCl acetaminophen dextrose IV for hypoglycemia OR dextrose IV for hypoglycemia OR glucagon glucose (Diabetic Use) gel heparin 100 units/mL heparin HYDROmorphone oxyCODONE (immediate release) LAB: Component Name 08/02/24 08/01/24 07/31/24 07/31/24 07/31/24 07/30/24 07/26/24 07/25/24 02/23/24 02/22/24 0804 0042 1720 0737 0553 0644 0850 2316 0723 2214 HGB 9.1* 9.0* 9.6* - 8.6* 9.0* - 9.5* - 9.6* WBC 14.8* 15.0* 15.1* - 13.2* 9.6 - 13.0* - 18.0* HCT 29.7* 29.7* 31.1* - 28.5* 29.5* - 31.7* - 30.5* MCV 95.2 95.2 94.5 - 95.6 94.2 - 94.6 - 94.4 PT 13.3 14.0 - 14.6 - - - 15.3* - 14.6 INR 1.0 1.1 - 1.2 - - - 1.2 - 1.2 - = values in this interval not displayed. ) Component Name 08/02/24 08/01/24 07/31/24 07/30/24 07/29/24 0804 0042 0553 0644 0624 BUN 35* 24 50* 44* 35* CREATININE 6.11* 5.20* 9.33* 9.32* 8.24* NA 139 135* 137 135* 137 CL 102 100 102 104 100 CO2 26 26 22 21* 23 CALCIUM 8.6 7.7* 7.5* 7.7* 8.2* PHOS 6.5* 4.7 8.9* 9.0* 8.0* Component Name 08/02/24 08/01/24 07/31/24 07/30/24 07/29/24 05/25/24 05/24/24 02/22/24 06/10/23 05/22/23 05/21/23 0804 0042 0553 0644 0624 0643 0625 2214 0939 0521 0450 ALB 1.7* 1.7* 1.6* 1.6* 1.7* - 1.9* 1.5* 1.5* 1.4* 1.4* TBILI - - - - - - 0.1* 0.2 0.2 0.1* 0.2 ALT - - - - - - 25 11 8 5 6 AST - - - - - - 14 7 12 9 7 - = values in this interval not displayed. No results for input(s): PHART , YIL9MDG , PO2ART , BRP6BEG in the last 89861 hours. A&P: ESRD on HD TTS HD tomorrow via [facility] juan Permcath when Bcx negative Anemia of CKD NEELAM 5K on HD CKD- BMD On renvella [id number] tid C/w Vit D supplements Aneta Lopez MD Nephrology Attending * Vee Flores RN - 08/02/2024 3:03 PM CDT Skin assessment done with Emily Preston RN. Photos uploaded into the chart. * Roxanna Roth PA-C - 08/02/2024 2:13 PM CDT Images from the original note were not included. [facility] Infectious Diseases Inpatient Progress Note Patient Name: Leeroy Canales 1990 Room: 6603/1 Date of Admission: 07/25/2024 Date of Service: 08/02/2024 Primary Care Physician: CHERISE MARCELO PA-C Attending Physician: Kwaku Ellsworth MD Reason for Infectious Disease Consultation Recurrent septic arthritis IMPRESSION MRSA bacteremia Right shoulder pyogenic arthritis Right shoulder osteomyelitis Pneumonia (treated) Cervical spine pain Right heel ulcer, chronic Osteomyelitis right calcaneous ESRD on HD RECOMMENDATIONS - Continue with IV vancomycin - Please continue to obtain 2 sets of blood cultures every 24-48 hours until negative for > 72 hours on 2 consecutive days - CT Chest / abd / pelvis with 2.9 cm abscess in right subscapularis, imaged after operative I&D. Recommend evaluation by IR vs. Ortho vs. Thoracic surgery for source control / aspiration. Per primary team - no intervention from orthopedics - Please obtain CBC w diff, CMP, ESR, CRP, vancomycin trough at least weekly while on IV antibiotics. Thank you for allowing us to participate in the care of this patient. ID will continue to follow. Please call the Ortho ID pager [phone] with any questions. Updated care plan discussed with Dr. Burleson. DISCUSSION Leeroy Canales is a 33 year old female with PMH of T2DM, ESRD on HD TTS, HTN, HLD,hx of RUE DVT, anemia, PVD, blindness, s/p L AKA, HFpEF, prior hx of infectious arthritis presenting as OSH transfer from [facility] for 3 day history of right shoulder pain. Recurrent MRSA bacteremia - 07/25, 07/26, 07/29: Bcx 2/2 MRSA; 07/29: Bcx 1/2 MRSA - 07/30: Bcx No growth - 07/31: Bcx 1/1 GPCs - 08/01 & 08/02 BCx: In process - Potential Sources: Dialysis catheter, shoulder septic arthritis, chronic right heel ulcer, DVT RUE - Source control: - 07/28: Right IJ tunneled dialysis catheter removed - 07/27 s/p OR I&D right shoulder - Right subscapularis abscess - Consult IR vs. Ortho vs. Thoracic surgery - Vascular intervention right foot osteomyelitis - patient declines - Evaluation: - TTE and TTE negative for vegetations - MRI cervical spine - negative for osteomyelitis / epidural abscess - 07/30: RUE venous doppler with DVT Right IJ and Superficial thrombus right cephalic - On IV vancomycin DVT Right IJ Superficial thrombus right cephalic vein - On IV vancomycin, right IJ line removed Right shoulder pyogenic arthritis Right shoulder osteomyelitis - OSH CT right shoulder: prominent erosive changes of the right humeral head and greater tuberosity, as well as the right coracoid process, prominent thickening of the shoulder capsule, right shoulder effusion - 07/25: OSH right shoulder aspiration, gram stain with GPC in clusters, cultures in process - 07/26: X-rays right shoulder concerning for osteomyelitis. - 07/26: Shoulder aspiration: Fluid with 219,660 nucleated cells, 97% neutrophils. Path - Acute inflammatory infiltrate, Intracellular microorganisms, minimal blood contamination. Cultures with MRSA - 07/27: OR for right shoulder I&D. Multiple purulent pockets. Cultures with MRSA. - 07/27: CT Chest abd pelvis with 2.9 cm subscapularis abscess with adjacent osteomyelitis of right humeral head and septic arthritis. Discuss source control with IR vs. Ortho vs. Thoracic surgery - On IV vancomycin Pneumonia (treated) - OSH CT CAP with bilateral pulmonary infiltrates suggesting bilateral pneumonia, cardiomegaly. - Repeat CT CAP 07/27 shows pulmonary edema. - Previously finished IV azithromycin. Now On IV vancomycin. Cervical spine pain - likely referred from right shoulder - MRI cervical spine negative for acute findings Chronic right heel ulcer Osteomyelitis right calcaneous - Tunnels to bone - appreciate vascular consult - Right ABIs normal ESRD on HD - Tunneled dialysis catheter removed 07/28 - temporary non-tunneled cath placed 07/30 left IJ CDC Screening - Previous HIV and hepatitis C screening negative QTC: 452 (05/17/2024) Renal Function: Estimated Creatinine Clearance: 17.3 mL/min (A) (by C-G formula based on SCr of 6.11 mg/dL (H)). Hardware: None Thank you for allowing us to participate in the care of this patient. We will continue to follow and monitor with you closely. Please call the Ortho ID pager [phone] with any questions. I spent 35 mins in the care of this patient to include chart review, coordination of care, and patient interview / examination / education independent from the attending physician. I spent an additional 10 mins in discussion with attending physician Dr. Garcia regarding patient case. Patient seen and examined, case discussed with ID attending. JESSICA Sorensen, PA-C Division of Infectious Diseases Contact: [employer] Secure Chat preferred ID Clinic ID Clinic Subjective History of Present Illness: Leeroy Canales is a 33 year old female with PMH of T2DM, ESRD on HD TTS, HTN, HLD, hx of RUE DVT, anemia, PVD, blindness, s/p L AKA, HFpEF, prior hx of infectious arthritis presenting as OSH transfer from [facility] for 3 day history of right shoulder pain. Patient reports that her neck started hurting about 1 week ago and her shoulder pain started 3 days prior to presenting to [facility]. Patient states that she felt right shoulder pain upon waking up one morning and it has progressed to become a 10/10, deep throbbing pain that she also feels in her upper arm. Pain is more severe on movement. Denies any trauma to the area. Also reports that for about two weeks, she has been experiencing cold sweats and fevers. Patient comes from a nursing facility ([facility]) where she was receiving rehab for prosthetic for LLE. At [facility] (OSH) labs revealed WBC 12.9k, Hb 10.3, plt 255; ESR 90, CRP 29.4; CMP remarkable for Na 131. Synovial fluid of R shoulder showing 92% neutrophils. Azithro, cefepime, vancomycin started at OSH. OSH imaging notable for the following: Shoulder x-ray showing mild osteoarthritis of acromioclavicular joint. Shoulder CT showing prominent erosive changes of the right humeral head and greater tuberosity, as well as the right coracoid process, prominent thickening of the shoulder capsule, right shoulder effusion CT chest abdomen pelvis showing bilateral pulmonary infiltrates suggesting bilateral pneumonia, cardiomegaly . Patient transferred to [facility] on 07/25/2024 for further evaluation of bilateral pneumonia and Right shoulder pyogenic arthritis. ID consulted for antibiotic management in the setting of recurrent pyogenic right shoulder. Patient reports tunneled dialysis line was placed in February 2024, has never been removed or replaced. Previous [facility] Hx: 04/26/2023 -05/09/2023: Presented for for foot osteomyelitis. Discharged with IV vancomycin, IV cefepime, PO flagyl. Discharge complicated by RUE DVT brachial vein causing readmission. Patient completedtherapy with doxycycline 100 mg BID, ciprofloxacin 750 mg BID, and flagyl 500 mg TID. EOT 06/07/2023. 02/22/2024 - 03/02/2024: Presented for MRSA bacteremia, left pectoralis abscess with concerns for osteomyelitis of left shoulder. Abscess near left shoulder aspiration by IR with 11 ml Pus, gram stain no organisms and culture no growth. Right shoulder aspirated with 4300 WBC (not concerning for septic arthritis per previous ID note. Patient treated with 6 weeks of antibiotics with EOT 04/07/2024 - was discharged on vancomycin and at some point transitioned to PO linezolid to complete treatment. 05/23/2024 - 06/03/2024: Presented to [facility] with left shoulder pain, found to have left shoulder septicbursitis, ?osteomyelitis. During this admission, blood cultures negative. OSH aspiration culture negative. [facility] shoulder aspiration culture negative. Synovial fluid with 6k nucleated cells, 83% neutrophils. MRI left shoulder consistent with septic bursitis but no osteomyelitis. Evaluated by rheumatology with no signs of inflammatory arthropathy. Treated with 4 weeks IV vancomycin, IV cefepime, EOT 06/21/2024. Hospital Course: 07/25: Bcx (2/2) +MRSA 07/26: Bcx (2/) + MRSA 07/26: Right shoulder aspiration. 219,660 nucleated cells, 97% neutrophils. Path - Acute inflammatory infiltrate, Intracellular microorganisms, minimal blood contamination. GPCs on gram stain. Cultures with MRSA 07/27: OR with ortho for I&D of right shoulder. Per op note: copious purulence noted in subdeltoid region, 85-90 mL evaluated from joint. Walled-off purulence identified from posterior aspect of humeral head as well as infraglenoid pouch. Purulence up and down bicipital tendon found. Cultures with MRSA 07/27: CT CAP - Pulmonary edema, right subscapularis abscess (2.9 cm) 07/28: TTE with no vegetations, obtain MATT if concerns for endocarditis 07/28: Bcx 2/2 MRSA 07/28: Vascular surgery recommends CT right foot w contrast; shows calcaneal osteomyelitis. Recommends amputation right foot, patient declines at this time 07/29: Bcx 11/04 MRSA 07/30: Bcx no growth 07/30: MRI C Spine wwo contrast: No acute cervical spine findings 07/30: Right venous duplex: DVT Right IJ, superficial thrombus right cephalic vein 07/30: Left IJ juan catheter placed by nephrology 07/31: Bcx 11/03 GPCs 08/01: Bcx pending 08/02: Bcx pending Interval history: Today 08/02/2024: Has increased pain in right shoulder from moving / bathing today. No fevers, chills, nausea, vomiting, diarrhea, cough, shortness of breath. Tolerating antibiotics. Appetite has [place]. WBC 14.8, Hgb 9.1, Hct 29.7, plt 520. CMP stable. 07/30/2024: MRI cervical spine and RUE venous duplex completed this AM pending reads. Going for MATT today. Feels more like myself. No fevers, chills, nausea, vomiting, diarrhea. Tolerating antibiotics. WBC 9.6. CMP stable. 07/28/2024: Continues to feel feverish and chilled. No nausea, vomiting, diarrhea, rashes, itching, shortness of breath, cough. Cervical pain almost resolved. Right shoulder pain present but slightly improved from yesterday. 07/26 Bcx with GPCs, pending speciation. WBC 11.0. Tolerating IV vancomycin 07/27/2024: Patient in HD. Continues to have fevers and chills. No nausea / vomiting / diarrhea / rashes / itching. Continues to have severe pain in right shoulder. Has some pain in the neck. No otherjoint pain. No shortness of breath / cough / difficulty breathing. Currently on IV vancomycin, IV cefepime, IV azithromycin. CT CAP w contrast completed today pending read. WBC 11.7, CRP 28.3, ESR 120. Creatinine 9.99, GFR 5. Medical History Past Medical History: Diagnosis Date [...] use: Denies history Marital status: Single Children: No Living situation: Resides at [place], [place] Travel Hx: no international travel Sick contacts: denies recent contacts HIV status: Negative 02/2024 Hepatitis Status: Negative 05/2024 Prosthetic / Implant History: None Immunizations: Immunization [...] Review of Systems Review of Systems Constitutional: Positive for chills, fever and malaise/fatigue. HENT: Negative. Eyes: Blind Respiratory: Negative. Cardiovascular: Negative. Gastrointestinal: Negative. Genitourinary: Negative. Musculoskeletal: Right shoulder pain, neck pain Skin: Negative for itching and rash. Chronic right heel ulcer Neurological: Negative. Endo/Heme/Allergies: Negative. Psychiatric/Behavioral: Negative. Allergies No Known Allergies Antimicrobial History Current Antibiotics IV vancomycin (07/26 - ) Prior Antibiotics At U IV cefazolin (07/27) - intra-op IV cefepime (07/26 - 07/27) IV azithromycin (07/26 - 07/27 ) Prior Antibiotics at OSH Home Medications Prior to Admission medications Medication Sig Start Date End Date Taking? Authorizing Provider acetaminophen (Tylenol) 500 MG tablet Take 1 (one) tablet by mouth every 4 hours Maximum allowable Acetaminophen amount = 4 Grams (4000 mg) / 24 hours. 03/02/24 Yes Martine Morrissey MD Alcohol Swabs (Alcohol Prep) 70 % USE ONE SWAB TO CLEAN SKIN FOUR TIMES DAILY BEFORE TESTING 12/12/22Amanda Georges MD amLODIPine (Norvasc) 10 MG tablet Take 1 (one) tablet by mouth once daily 02/28/24 Yes Geronimo Burleson MD bisacodyl (Dulcolax) 10 MG suppository Insert 1 (one) suppository into the rectum once daily as needed for Constipation 02/28/24 Geronimo Burleson MD blood glucose (OneTouch Verio) test strip USE ONE STRIP TO TEST BLOOD SUGAR FOUR TIMES DAILY 12/12/22Yes Amanda Georges MD Blood Glucose Monitoring Suppl (OneTouch Verio Reflect) w/Device KIT Use 1 kit 4 times daily USE METER TO CHECK BLOOD GLUCOSE FOUR TIMES DAILY Reasons: CALL [facility] WHEN DELIVERING [id number] 12/12/22 Amanda Georges MD carvedilol (Coreg) 12.5 MG tablet Take 1 (one) tablet by mouth 2 times daily with morning and evening meal 12/12/22 Yes Rosi Menard V., [employer] FeroSul 325 (65 Fe) MG tablet Take 1 (one) tablet by mouth daily with breakfast 08/08/22 Yes ProviderRebel MD furosemide (Lasix) 40 MG tablet Take 1 (one) tablet by mouth every Friday, Friday & Friday05/23/23 Yes Willard Estrella MD gabapentin (Neurontin) 100 MG capsule Take 1 (one) capsule by mouth 3 times daily 12/27/22 Yes ProviderRebel MD insulin lispro (HumaLOG;ADMelog) 100 UNIT/ML pen Inject 0 (zero) Units to 6 (six) Units subcutaneously 3 times daily with meals Patient not taking: Reported on 07/26/2024 05/09/23 Joe Vargas MD Lancets (ONETOUCH DELICA PLUS 33G EXTRA FINE LANCET) USE ONE LANCET TO PRICK FINGER FOUR TIMES DAILY FOR BLOOD GLUCOSE TESTING 12/12/22 Amanda Georges MD lisinopril (Prinivil; Zestril) 20 MG tablet Take 1 (one) tablet by mouth once daily 02/29/24 Yes Geronimo Burleson MD melatonin 3 MG tablet Take 1 (one) tablet by mouth nightly as needed for Insomnia 05/09/23 Yes Joe Vargas MD nystatin (Mycostatin) 742511 UNIT/GM powder Apply to affected area 3 times daily 12/12/22 Yes Rosi Menard V., [employer] oxyCODONE, immediate release, (Roxicodone) 10 MG tablet Take 1 (one) tablet by mouth every 4 hours as needed 06/03/24 Yes Franck Hennessy MD polyethylene glycol 3350 (Miralax) 17 g packet Take 17 (seventeen) g by mouth once daily Patient not taking: Reported on 05/23/2024 02/28/24 Geronimo Burleson MD renal vitamin (Dialyvite) tablet Take 1 (one) tablet by mouth once daily 02/28/24 Geronimo Burleson MD senna (Senokot) 8.6 MG tablet Take 1 (one) tablet by mouth once daily 02/28/24 Geronimo Burleson MD sevelamer carbonate (Renvela) 800 MG Take 1 (one) tablet by mouth 3 times daily with meals 02/28/24 Geronimo Burleson MD Objective Vitals BP 150/93 Pulse 84 Temp 98.9 ??F (37.2 ??C) Resp 16 Ht 1.702 m (5' 7 ) Wt 112.9 kg (248 lb 12.8 oz) SpO2 98% Temp (24hrs), Av.5 ??F (36.9 ??C), Min:97.8 ??F (36.6 ??C), Max:98.9 ??F (37.2 ??C) Physical Exam PHYSICAL EXAM General: Alert, no distress, not toxic appearing, laying in bed, appears comfortable. Head: Normocephalic, atraumatic EENT: Blind, anicteric sclera. Nose Normal. No thrush. Dentition Fair. Neck: Supple Chest wall: No tenderness or deformity, Right tunneled IJ removed. Left IJ catheter in place Lungs: Clear to auscultation bilaterally, no wheezes, rales, rhonchi. Heart: RRR, S1, S2 normal, no murmur, gallops, or rubs. Abdomen: Soft, non-distended, non-tender, no organomegaly or masses. +BS Extremities: Left AKA. Right lower leg with edema and chronic venous changes and chronic wounds to RLE, right heel ulcer present. Right shoulder with post surgical dressing Skin: No rashes. Neurologic: Alert and oriented x 3, moving all extremities Psychiatry: Appropriate mood/affect Lines: PIV left antecubital, Non-tunneled HD line left IJ Lab Review CBC: Recent Labs Component Name 08/02/24 0804 08/01/24 0042 07/31/24 1720 WBC 14.8* 15.0* 15.1* RBC 3.12* 3.12* 3.29* HGB 9.1* 9.0* 9.6* HCT 29.7* 29.7* 31.1* MCV 95.2 95.2 94.5 BMP: Recent Labs Component Name 08/02/24 0804 08/01/24 0042 07/31/24 0553 05/25/24 0643 05/24/24 0625 02/23/24 0737 02/22/24221306/10/23 0939 NA 139 135* 137 - 139 - 136 143 CL 102 100 102 - 104 - 100 110* CO2 26 26 22 - 26 - 26 25 BUN 35* 24 50* - 33* - 21 8 CREATININE 6.11* 5.20* 9.33* - 3.64* - 4.88* 1.96* ALB 1.7* 1.7* 1.6* - 1.9* - 1.5* 1.5* PROT - - - - 7.2 - 8.1 5.8* - = values in this interval not displayed. estimated creatinine clearance is 17.3 mL/min (A) (by C-G formula based on SCr of 6.11 mg/dL (H)). LFTs: Recent Labs Component Name 05/24/24 0625 02/22/24221306/10/23 0939 12/02/22 1955 08/25/22 0315 08/24/22 1404 08/24/22 0725 ALKPHOS 170* 221* 139 - - - - ALT 25 11 8 - - - - AST 14 7 12 - - - - ALBUMIN - - - - 2.0* 2.1* 1.7* - = values in this interval not displayed. Coagulation: Recent Labs Component Name 08/02/24 0804 08/01/24 0648 08/01/24 0042 07/31/24 1720 07/31/24 0737 PT 13.3 - 14.0 - 14.6 INR 1.0 - 1.1 - 1.2 PTT 43.2* 81.7* 73.2* - 30.5 - = values in this interval not displayed. ESR: Recent Labs Component Name 08/01/24 1121 07/25/24 2316 05/24/24 0548 ESR 128* 120* 114* CRP: Recent Labs Component Name 08/01/24 1121 07/25/24 2316 05/24/24 0625 CRP 10.1* 28.3* 1.4* CK: No results for input(s): CK in the last 79971 hours. Microbiology, Imaging and other diagnostic tests MICROBIOLOGY: Blood culture: 07/25/2024: 2/2 MRSA 07/26/2024: 2/2 MRSA 07/28/2024: 2/2 MRSA 07/29/2024: 1/2 MRSA 07/30/2024: 2/2 No growth 07/31/2024: 1/1 GPCs 08/01/2024: In process 08/02/2024: In process Right shoulder aspiration bedside 07/26/2024: Gram stain: Heavy PMNs, Light GPCs Culture: MRSA Fluid: 219,660 nucleated cells, 97% neutrophils. Path - Acute inflammatory infiltrate, Intracellular microorganisms, minimal blood contamination Right shoulder I&D OR 07/27/2024: MRSA Other Serologies: 05/31/2024: Hepatitis C non-reactive 02/24/2024: HIV non-reactive HISTOPATHOLOGY: None at this admission IMAGING & PROCEDURES: Pertinent images independently reviewed; report in chart MRI Cervical spine wwo contrast 07/30/2024 IMPRESSION: 1. Normal MRI of the cervical spine. [...] vein CT FOOT RIGHT W CONTRAST 07/28/2024 IMPRESSION: Wound at the plantar aspect of [...] CT CHEST ABDOMEN PELVIS W CONTRAST 07/27/2024 Impression: 1.A 2.9 cm right subscapularis abscess with adjacent osteomyelitis of the right humeral head and septic arthritis. There is a surgical drain likely in the glenohumeral joint space. 2.An ill-defined fluid collection adjacent to the left humerus without a well-defined rim which may represent an early developing abscess versus phlegmon. 3.Cardiomegaly with pulmonary edema. 4.Dendriform pulmonary ossifications in the lung bases Associated attestation - Rio Garcia MD - 08/02/2024 8:42 PM CDT Infectious Diseases Attending Attestation For this patient encounter, IRio MD, in collaboration with Roxanna Roth PA-C have reviewed their work records and practice regarding quality and appropriateness of professional services provided. I discussed this patient with Roxanna Roth PA-C and reviewed their documentation and agree with history, physical examination findings, assessment, and plan of care. Additionally, I reviewed labwork, relevant imaging, and pertinent history. I agree with the assessment and plan as detailed in their note. Please see Roxanna Roth PA-C note for full details. I have spent >35 minutes with the patient and/or guardian ([id number]) or on the patient? s floor/unit, of which more than 50% of the time was spent in counseling and/or coordination of care. Rio Garcia MD Infectious Diseases Attending [facility] * Aide Sutton, MILLIE/BARI - 08/02/2024 1:55 PM CDT Clinical Nutrition Assessment Brief Synopsis: Patient is at Nutrition Risk; Specific criteria can be found in assessment below Nutrition Plan: Current diet order: Renal Standard +Nepro BID (425 kcal, 19 gm protein) Recommendations to Physician: none Comments: Pt scheduled for reassessment. Limited PO intake recorded in chart. PO intake appears poor to fair with reported intake of 0-80% of meals. No oral nutrition supplement intake recorded in chart at this time. +BM x1 yesterday. Phosphorus remains elevated, on renvela. Will continue to follow. Assessment: Med/Surg History and Clinical Diagnoses: 33 year old y/o female with PMH of T2DM, ESRD on HD TTS, HTN, HLD, hx of RUE DVT, anemia, PVD, blindness, s/p L AKA, HFpEF, prior hx of infectious arthritis presenting from [facility] for 3 day history of right shoulder pain. Patient states that she felt right shoulder pain upon waking up one morning and it has progressed to become a 10/10, deep throbbing pain that she also feels in her upper arm. Pain is more severe on movement. Denies any traumato the area. Also reports that for about two weeks, she has been experiencing cold sweats and fevers. Of note, patient had admission from 05/23-06/03 for infectious arthritis of L shoulder; pt states this pain feels exactly the same as her prior infection but in the opposite shoulder. Height: 170.2 cm (5' 7 ) Weight: (NO WEIGHT ORDERED) BMI: Body mass index is 38.69 kg/m??. BMI Range: Morbidly Obese Class 3 IBW/lb (Calculated) Female: 135, Recent Weights/Methods 05/24/2024 1400 05/29/2024 0857 07/25/2024 2242 07/26/2024 0414 07/26/2024195107/27/2024 1419 07/30/2024195007/31/2024 1107 Weight: 93.4 kg (205 lb 14.6 oz) -- 114.2 kg (251 lb 11.2 oz) 114.2 kg (251 lb 11.2 oz) 113.5 kg (250 lb 3.2 oz) -- 112.9 kg (248 lb 12.8 oz) -- Weight Method : -- -- -- Bed scale Bed scale -- Bed scale -- Wt Comments: Reviewed & monitoring. Diet order accuracy Current diet order: Renal Standard Current supplement order: Nepro BID Nutrition recommendation: agree with current nutrition order P.O.Intake for the past 48 hrs: % Meal Taken Av % Min: 0 % Max: 50 % Supplement(s) Consumed- Last 48 hours None Food Allergies: No known food allergies GI Concerns: None Chewing/Swallowing: None Pain affecting intake: No Estimated Needs: KCAL: 6252-3336 (30-35kcal/kg) Protein (g): 71-82 (1.3-1.5g/kg) Fluid (ml): 1 ml/kcal Needs based on: Kcal/kg- (Comment) (55kg adjsuted IBW) Recommended Access Route: PO Laboratory values: Recent Labs Component Name 08/02/24 0804 08/01/24 0042 07/31/24 0553 PHOS 6.5* 4.7 8.9* Recent Labs Component Name 08/02/24 0804 08/01/24 0042 07/31/24 0553 05/25/24 0643 05/24/24 0625 02/23/24 0737 02/22/24 2214 06/10/23 0939 BUN 35* 24 50* - 33* - 21 8 CREATININE 6.11* 5.20* 9.33* - 3.64* - 4.88* 1.96* NA 139 135* 137 - 139 - 136 143 POTASSIUM 4.0 4.0 4.7* - 4.2 - 4.1 4.1 CL 102 100 102 - 104 - 100 110* CO2 26 26 22 - 26 - 26 25 GLUCOSE 152* 220* 133* - 240* - 261* 79 CALCIUM 8.6 7.7* 7.5* - 8.5 - 8.8 8.3* PROT - - - - 7.2 - 8.1 5.8* ALB 1.7* 1.7* 1.6* - 1.9* - 1.5* 1.5* TBILI - - - - 0.1* - 0.2 0.2 ALKPHOS - - - - 170* - 221* 139 ALT - - - - 25 - 11 8 AST - - - - 14 - 7 12 ANIONGAP 11 9 13 - 9 - 10 12 BCR 6* 5* 5* - 9 - 4* 4* OSMOLALITY 299* 291 299* - 303* - 294 293 AGRATIO - - - - 0.4* - 0.2* 0.3* EGFR 9* 11* 5* - 16* - 12* 35* - = values in this interval not displayed. Medications: Current Facility-Administered Medications Medication 0.9% NaCl injection 3 mL And 0.9% NaCl injection 1-10 mL acetaminophen (Tylenol) tablet 650 mg ammonium lactate (Lac-Hydrin) 12 % lotion carvedilol (Coreg) tablet 12.5 mg dextrose 10 % IV bolus Or dextrose 10 % IV bolus Or glucagon (Glucagen) injection 1 mg epoetin carlin-EPBX (Retacrit) 5,000 unit injection ferrous sulfate tablet 325 mg furosemide (Lasix) tablet 40 mg gabapentin (Neurontin) capsule 300 mg glucose (Diabetic Use) oral gel heparin 100 units/mL bolus from bag heparin 25,000 units in 250 mL (100 units/mL) in dextrose 5% heparin injection 1,000 Units HYDROmorphone (Dilaudid) injection 0.6 mg lisinopril (Prinivil; Zestril) tablet 20 mg oxyCODONE (immediate release) (Roxicodone) tablet 10 mg renal vitamin (Dialyvite) tablet 1 tablet sevelamer carbonate (Renvela) tablet 1,600 mg [START ON 08/03/2024] vancomycin (Vancocin) 500 mg in 0.9% NaCl IV 100 mL IVPB vancomycin (Vancocin) IV dose per pharmacy vitamin D3 (Cholecaciferol) tablet 5,000 Units Skin/Wound: foot, side, & leg wound Education needed: Wound Healing Education Provided: Yes Expected level of compliance: Needs reinforcement Nutrition Care Process (1) Nutrition Diagnostic Statement: Increased nutrient needs related to:: increased demands for wound healing;renal dysfunction as evidenced by:: delayed wound healing Nutrition Diagnostic Statement Progress: Nutrition problem continues Nutrition Intervention: Meals and snacks:;Medical Food Supplements: Monitoring: PO intake, labs, weight, BM Evaluation: Nutrition Goal: Total intake will meet estimated nutrient needs Nutrition Goal Timeframe: Throughout stay Nutrition Goal Progress: Continue with current goal [id number] * Roberto No MD - 08/02/2024 9:32 AM CDT Images from the original note were not included. [facility] INTERNAL MEDICINE PROGRESS NOTE Patient: Leeroy Canales Sex: female Age: [age] year old Date of : 1990 Date of Admission: 07/25/2024 Date: 08/02/2024 LOS: 8 SUBJECTIVE Interval History: Patient was seen today. She denies acute events overnight. She denies fever, chills, shortness of breath, chest pain, blurry vision, or headache. She reports her pain is well controlled currently. She is still thinking about the AKA amputation of her right leg, she wants to to see how the blood cultures leahy out before making a decision. Blood cultures from 07/31 came back positive with staph hominis. Hospital Course: Ms. Canales is a 33 year old female with a PMH significant for septic arthritis of L shoulder 06/2024, T2DM c/b retinopathy with blindness, ESRD on HD, HTN, HLD and HFpEF (last EF 74% with grade II diastolic dysfunction) who presented to an OSH on 07/25 for a 3 day history of progressive R shoulder pain. Per patient, the pain was present upon awakening that morning and progressed to a 10/10 deep thr obbing pain in her R upper arm. She denies any recent trauma to the area, but reports cold sweats and fevers of two weeks duration. Of note, patient reports that her should pain feels exactly the same as it did during her most recent admission (05/23-06/03) for infectious arthritis of L shoulder. Pertinent labs at OSH include WBC 12.9k, Hb 10.3, plt 255; ESR 90, CRP 29.4; CMP remarkable for Na 131. Synovial fluid of R shoulder showing 92% neutrophils. Patient started empirically on azithromycin, cefepime, and vancomycin at OSH. Patient is currently receiving only vancomycin. Patient is s/p arthrotomy, irrigation and debridement, and synovectomy (07/27). Patient underwent LIJ catheter placement f or dialysis after removal of her RIJ cath and successfully underwent dialysis. OBJECTIVE Vital Signs: Vitals: 08/01/24 2027 08/01/24 2348 08/02/24 0642 08/02/24 0836 BP: 161/87 158/88 160/83 147/82 Pulse: 85 90 87 Resp: 17 13 16 Temp: 98.5 ??F (36.9 ??C) 97.8 ??F (36.6 ??C) 98.4 ??F (36.9 ??C) SpO2: 92% 91% 94% Weight: Height: Temp Min: 97.6 ??F (36.4 ??C) Max: 100.7 ??F (38.2 ??C), Pulse Min: 72 Max: 91, Resp Min: 10 Max: 25, BP Min: 95/60 Max: 162/97 Intake & Output: In: 480 [P.O.:480] Out: - Physical Exam: Physical Exam Constitutional: Appearance: Normal appearance. Cardiovascular: Rate and Rhythm: Normal rate and regular rhythm. Pulses: Normal pulses. Radial pulses are 2+ on the right side and 2+ on the left side. Dorsalis pedis pulses are 2+ on the right side. Heart sounds: S1 normal and S2 normal. Murmur heard. Systolic murmur is present with a grade of 2/6. Pulmonary: Effort: Pulmonary effort is normal. Breath sounds: Normal breath sounds and air entry. Abdominal: General: Abdomen is flat. Bowel sounds are normal. There is no distension. Palpations: Abdomen is soft. Tenderness: There is no abdominal tenderness. Musculoskeletal: Right lower leg: No edema. Comments: Right foot wound pictures in media Left Lower Extremity: Left leg is amputated above knee. Feet: Right foot: Toenail Condition: Right toenails are abnormally thick. Skin: General: Skin is warm. Neurological: Mental Status: She is alert. Current Medications: Scheduled: 0.9% NaCl 3 mL Intracatheter q8h ammonium lactate Topical BID carvedilol 12.5 mg Oral BID WC epoetin 5,000 Units Intravenous DIALYSIS FRI, FRI, & SAT ferrous sulfate 325 mg Oral QDAY WITH BREAKFAST furosemide 40 mg Oral QDAY gabapentin 300 mg Oral MON, FRI AND FRI lisinopril 20 mg Oral QDAY renal vitamin 1 tablet Oral QDAY sevelamer carbonate 1,600 mg Oral TID [START ON 08/03/2024] vancomycin 500 mg Intravenous , & FRI vancomycin (VANCOCIN) IV dose per pharmacy Does not apply DIRECTED vitamin D3 5,000 Units Oral QDAY Continuous: heparin, 0-40 Units/kg/hr, Last Rate: 19 Units/kg/hr (08/02/2446) PRN: SALINE LOCK, INSERT AND MAINTAIN AND 0.9% NaCl AND 0.9% NaCl acetaminophen dextrose IV for hypoglycemia OR dextrose IV for hypoglycemia OR glucagon glucose (Diabetic Use) gel heparin 100 units/mL heparin HYDROmorphone oxyCODONE (immediate release) Significant Lab Results: CBC: Recent Labs Component Name 08/02/24 0804 08/01/24 0042 07/31/24 1720 12/03/22 0242 12/02/221954 WBC 14.8* 15.0* 15.1* - 42.0* HGB 9.1* 9.0* 9.6* - 8.9* HCT 29.7* 29.7* 31.1* - 28.3* PLATELET - - - - Occasional* PLTCOUNT 520* 490* 539* - 556* - = values in this interval not displayed. BMP: Recent Labs Component Name 08/02/24 0804 08/01/24 0042 07/31/24 0553 12/02/22195408/25/22 0315 08/24/22 1404 08/24/22 0725 SODIUM - - - - 142 143 138 POTASSIUM 4.0 4.0 4.7* - 3.6 3.7 5.2* CHLORIDE - - - - 107 103 110* CO2 26 26 22 - 26 30 20* BUN 35* 24 50* - 13 9 8 CREATININE 6.11* 5.20* 9.33* - 1.58* 1.43* 1.42* GLUCOSE 152* 220* 133* - 211* 145* 165* CALCIUM 8.6 7.7* 7.5* - 7.9* 8.2* 7.8* - = values in this interval not displayed. Microbiology: Microbiology Results (Displays last 21 days for this encounter ONLY) Procedure Component Value - Date/Time CULTURE BLOOD [[id number]] Collected: 08/02/24 1327 Lab Status: No result Specimen: Blood Peripheral CULTURE BLOOD [[id number]] Collected: 08/02/24 0902 Lab Status: In process Specimen: Blood Peripheral Updated: 08/02/24 0922 CULTURE BLOOD [[id number]] (Normal) Collected: 08/01/24 014 Lab Status: Preliminary result Specimen: Blood Peripheral Updated: 08/02/24 0530 Culture No growth 24 hours CULTURE BLOOD [[id number]] (Normal) Collected: 08/01/24 014 Lab Status: Preliminary result Specimen: Blood Peripheral Updated: 08/02/24 0530 Culture No growth 24 hours CULTURE BLOOD [[id number]] (Abnormal) Collected: 07/31/24 1720 Lab Status: Preliminary result Specimen: Blood Peripheral Updated: 08/02/24 1517 Culture Growth of Staphylococcus hominis Comment: Possible contaminant unless multiple cultures are positive for the same isolate. Gram Stain Gram-positive cocci in clusters Narrative: Positive at 17 Hours 12 Minutes CULTURE BLOOD [[id number]] (Normal) Collected: 07/30/24 1213 Lab Status: Preliminary result Specimen: Blood Peripheral Updated: 08/01/24 1631 Culture No growth CULTURE BLOOD [[id number]] (Normal) Collected: 07/30/24 1203 Lab Status: Preliminary result Specimen: Blood Peripheral Updated: 08/01/24 1631 Culture No growth CULTURE BLOOD [[id number]] (Normal) Collected: 07/29/24 1636 Lab Status: Preliminary result Specimen: Blood Peripheral Updated: 07/31/24 2031 Culture No growth CULTURE BLOOD [[id number]] (Abnormal) Collected: 07/29/24 1117 Lab Status: Preliminary result Specimen: Blood Peripheral Updated: 08/01/24 0939 Culture Growth of Staphylococcus aureus methicillin-resistant (MRSA) Comment: Staphylococcus aureus methicillin-resistant (MRSA) detected by penicillin binding protein immunoassay. Contact precautions required. Conventional antibiotic susceptibility testing to follow. Gram Stain Gram-positive cocci in clusters Narrative: Methicillin-resistant Staphylococci (MRSA) are resistant to all currently available beta-lactam antibiotics with the exception of the newer cephalosporins with anti-MRSA activity. Contact precautionsrequired. Positive at 19 hours and 18 minutes Infectious disease consultation strongly recommended, where available. Refer to previously reported susceptibility testing, specimen number:[id number] CULTURE BLOOD [[id number]] (Abnormal) (Susceptibility) Collected: 07/28/24 2048 Lab Status: Preliminary result Specimen: Blood Peripheral Updated: 07/31/24 2123 Culture Growth of Staphylococcus aureus methicillin-resistant (MRSA) Comment: Staphylococcus aureus methicillin-resistant (MRSA) detected by penicillin binding protein immunoassay. Contact precautions required. Conventional antibiotic susceptibility testing to follow. Gram Stain Gram-positive cocci in clusters Narrative: Methicillin-resistant Staphylococci (MRSA) are resistant to all currently available beta-lactam antibiotics with the exception of the newer cephalosporins with anti-MRSA activity. Contact precautionsrequired. Positive at 26 Hours 12 Minutes Infectious disease consultation strongly recommended, where available. Susceptibility Staphylococcus aureus methicillin-resistant (MRSA) (1) Antibiotic Interpretation Microscan Method Status Oxacillin Resistant >=4 ug/mL CHARLES Final Vancomycin Susceptible 1 ug/mL CHARLES Final CULTURE BLOOD [[id number]] (Abnormal) Collected: 07/28/24 1753 Lab Status: Preliminary result Specimen: Blood Peripheral Updated: 08/01/24 1500 Culture Growth of Staphylococcus aureus methicillin-resistant (MRSA) Comment: Staphylococcus aureus methicillin-resistant (MRSA) detected by penicillin binding protein immunoassay. Contact precautions required. Conventional antibiotic susceptibility testing to follow. Gram Stain Gram-positive cocci in clusters Narrative: Methicillin-resistant Staphylococci (MRSA) are resistant to all currently available beta-lactam antibiotics with the exception of the newer cephalosporins with anti-MRSA activity. Contact precautionsrequired. Refer to previously reported susceptibility testing, specimen number: [id number] Positive at 41 Hours 58 Minutes Infectious disease consultation strongly recommended, where available. CULTURE ANAEROBE [[id number]] (Normal) Collected: 07/27/24 0911 Lab Status: Final result Specimen: Microbiology from Synovial Fluid Updated: 08/01/24 0807 Culture No anaerobic organisms isolated CULTURE FUNGUS OTHER+FUNGUS SMEAR [[id number]] (Normal) Collected: 07/27/24 0911 Lab Status: Preliminary result Specimen: Microbiology from Synovial Fluid Updated: 08/02/24 1113 Culture No fungus isolated Fungus Stain No yeast or hyphae seen CULTURE WOUND+GRAM STAIN [[id number]] (Abnormal) (Susceptibility) Collected: 07/27/24 0911 Lab Status: Final result Specimen: Microbiology from Shoulder Updated: 07/30/24 0429 Culture Rare Staphylococcus aureus methicillin-resistant (MRSA) Comment: Staphylococcus aureus methicillin-resistant (MRSA) detected by penicillin binding protein immunoassay. Contact precautions required. Conventional antibiotic susceptibility testing to follow. Gram Stain Light Polymorphonuclear cells No organisms seen Narrative: Methicillin-resistant Staphylococci (MRSA) are resistant to all currently available beta-lactam antibiotics with the exception of the newer cephalosporins with anti-MRSA activity. Contact precautionsrequired. Susceptibility Staphylococcus aureus methicillin-resistant (MRSA) (1) Antibiotic Interpretation Microscan Method Status Clindamycin Susceptible 0.25 ug/mL CHARLES Final Doxycycline Susceptible <=0.5 ug/mL CHARLES Final Inducible Clindamycin Resistance Neg NEG ug/mL CHARLES Final Oxacillin Resistant >=4 ug/mL CHARLES Final Trimethoprim-sulfamethoxazole Resistant >=320 ug/mL CHARLES Final Vancomycin Susceptible 1 ug/mL CHARLES Final CULTURE BLOOD [[id number]] (Abnormal) Collected: 07/26/24 2308 Lab Status: Final result Specimen: Blood Peripheral Updated: 07/29/24 1150 Culture Growth of Staphylococcus aureus methicillin-resistant (MRSA) Comment: Staphylococcus aureus methicillin-resistant (MRSA) detected by penicillin binding protein immunoassay. Contact precautions required. Conventional antibiotic susceptibility testing to follow. Gram Stain Gram-positive cocci in clusters Narrative: Methicillin-resistant Staphylococci (MRSA) are resistant to all currently available beta-lactam antibiotics with the exception of the newer cephalosporins with anti-MRSA activity. Contact precautionsrequired. Positive at 18 hours 59 minutes. Refer to previously reported susceptibility testing, specimen number: [id number] Infectious disease consultation strongly recommended, where available. CULTURE BLOOD [[id number]] (Abnormal) Collected: 07/26/24 2252 Lab Status: Final result Specimen: Blood Peripheral Updated: 07/29/24 0959 Culture Growth of Staphylococcus aureus methicillin-resistant (MRSA) Comment: Staphylococcus aureus methicillin-resistant (MRSA) detected by penicillin binding protein immunoassay. Contact precautions required. Conventional antibiotic susceptibility testing to follow. Gram Stain Gram-positive cocci in clusters Narrative: Methicillin-resistant Staphylococci (MRSA) are resistant to all currently available beta-lactam antibiotics with the exception of the newer cephalosporins with anti-MRSA activity. Contact precautionsrequired. Positive at 15 hours 11 minutes. Refer to previously reported susceptibility testing, specimen number: [id number] Infectious disease consultation strongly recommended, where available. CULTURE FLUID+GRAM STAIN [[id number]] (Abnormal) (Susceptibility) Collected: 07/26/24 1320 Lab Status: Final result Specimen: Other from Synovial Fluid Updated: 07/30/24 0333 Culture Heavy Staphylococcus aureus methicillin-resistant (MRSA) Gram Stain Heavy Polymorphonuclear cells Light Gram-positive cocci Narrative: Methicillin-resistant Staphylococci (MRSA) are resistant to all currently available beta-lactam antibiotics with the exception of the newer cephalosporins with anti-MRSA activity. Contact precautionsrequired. Susceptibility Staphylococcus aureus methicillin-resistant (MRSA) (1) Antibiotic Interpretation Microscan Method Status Clindamycin Susceptible 0.25 ug/mL CHARLES Final Doxycycline Susceptible <=0.5 ug/mL CHARLES Final Inducible Clindamycin Resistance Neg NEG ug/mL CHARLES Final Oxacillin Resistant >=4 ug/mL CHARLES Final Trimethoprim-sulfamethoxazole Resistant >=320 ug/mL CHARLES Final Vancomycin Susceptible 1 ug/mL CHARLES Final CULTURE ANAEROBE [[id number]] (Normal) Collected: 07/26/24 1320 Lab Status: Final result Specimen: Microbiology from Synovial Fluid Updated: 08/01/24 0807 Culture No anaerobic organisms isolated CULTURE BLOOD [[id number]] (Abnormal) Collected: 07/25/24 2318 Lab Status: Final result Specimen: Blood Peripheral Updated: 07/28/24 1110 Culture Growth of Staphylococcus aureus methicillin-resistant (MRSA) Comment: Staphylococcus aureus methicillin-resistant (MRSA) detected by penicillin binding protein immunoassay. Contact precautions required. Conventional antibiotic susceptibility testing to follow. Gram Stain Gram-positive cocci in clusters Narrative: Methicillin-resistant Staphylococci (MRSA) are resistant to all currently available beta-lactam antibiotics with the exception of the newer cephalosporins with anti-MRSA activity. Contact precautionsrequired. Contact precautions required. Positive at 12 hours 7 minutes. Infectious disease consultation strongly recommended, where available. Refer to previously reported susceptibility testing, specimen number: [id number] CULTURE BLOOD [[id number]] (Abnormal) (Susceptibility) Collected: 07/25/24 2316 Lab Status: Final result Specimen: Blood Peripheral Updated: 07/28/24 1440 Culture Growth of Staphylococcus aureus methicillin-resistant (MRSA) Comment: Staphylococcus aureus methicillin-resistant (MRSA) detected by penicillin binding protein immunoassay. Contact precautions required. Conventional antibiotic susceptibility testing to follow. Gram Stain Gram-positive cocci in clusters Narrative: Methicillin-resistant Staphylococci (MRSA) are resistant to all currently available beta-lactam antibiotics with the exception of the newer cephalosporins with anti-MRSA activity. Contact precautionsrequired. Positive at 12 hours 50 minutes. Infectious disease consultation strongly recommended, where available. Susceptibility Staphylococcus aureus methicillin-resistant (MRSA) (1) Antibiotic Interpretation Microscan Method Status Oxacillin Resistant >=4 ug/mL CHARLES Final Vancomycin Susceptible 1 ug/mL CHARLES Final BCID PANEL [[id number]] (Abnormal) Collected: 07/25/24 2316 Lab Status: Final result Specimen: Blood Peripheral Updated: 07/26/24 1644 Staphylococcus aureus Detected MECA/C and MREJ (Methicillin-Resistance Gene) Detected Comment: Results indicate methicillin-resistant Staphylococcus aureus (MRSA). Methicillin resistance detected. Narrative: Blood Culture ID Panel performed by [employer] multiplex PCR. The Test panel includes: Gram Positive Bacteria: Enterococcus faecalis, Enterococcus faecium, Listeria monocytogenes, Staphylococcus (genus), Staphylococcus aureus, Staphylococcus epidermidis, Staphylococcus lugdunensis, Streptococcus (genus), Streptococcus agalactiae (Group B), Streptococcus pneumoniae, Streptococcus pyogenes (Group A). Gram Negative Bacteria: Acinetobacter baumannii complex, Bacteroides fragilis, Haemophilus influenzae, Neisseria meningitidis (encapsulated), Pseudomonas aeruginosa, Stenotrophomonas maltophilia, Enterobacterales (formerly Enterobacteriaceae family), Enterobacter cloacae complex, Escherichia coli, K lebsiella (formerly Enterobacter) aerogenes, Klebsiella oxytoca, Klebsiella pneumoniae group, Proteus (genus), Salmonella species, Serratia marcescens. YEAST: Larisa albicans, Larisa auris, Larisa glabrata, Larisa krusei, Larisa parapsilosis, Larisa tropicalis, Cryptococcus neoformans/gattii. Antimicrobial Resistance Genes: CTX-M (extended-spectrum beta-lactamase), IMP ([place] beta-lactamase), KPC (carbapenemase), mcr-1 (colistin resistance determinant) mecA/C (methicillin-resistance), mecA/C and MREJ (methicillin- resistance - MRSA), NDM ([place] osxjhfn-wehd-pbqzdmnzw), OXA-48-like ( oxacillinase beta-lactamase),Geo/B (vancomycin-resistance), VIM (Esther Intergrom-Encoded [place] beta-lactamase). Imaging & Studies: No results found. 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, with long-term current use of insulin ([facility]) (POA: Yes) Hypoalbuminemia (POA: Yes) Septic arthritis of shoulder, right (HCC) (POA: Yes) Pneumonia of both lungs due to infectious organism, unspecified part of lung (POA: Yes) Acute pain of right shoulder (POA: Yes) Sepsis due to methicillin resistant Staphylococcus aureus (MRSA) ([facility]) (POA: Yes) Dyslipidemia (POA: Yes) Obesity, Class II, BMI 35-39.9 (POA: Yes) Hyponatremia (POA: Yes) Hyperkalemia (POA: Yes) Hyperphosphatemia (POA: Yes) Hypocalcemia (POA: Yes) Chronic ulcer of right heel (HCC) (POA: Unknown) Osteomyelitis of right foot ([facility]) (POA: Yes) #MRSA bacteremia #Septic arthritis of right shoulder s/p I&D - TTE was negative for endocarditis, MATT negative for vegetations - aspiration of right should grew MRSA - ID on board - IV vancomycin - MRI cervical spine was normal - 2 sets of blood cultures every 24-48 hours until negative for > 72 hours on 2 consecutive days #Right foot osteomyelitis - osteomyelitis seen on CT of the foot - vascular surgery consulted; they recommended amputation for source control but patient refused. Surgical debridement not beneficial as per surgery team. - Wound care #ESRD on HD TTS - Nephrology on board; currently permacath was removed due to MRSA bacteremia - Will need two sets of negative blood cultures before permacath can be replaced - LIJ catheter inserted; will undergo dialysis today - Low K diet and fluid restriction - Strict I&O's, daily weights, avoid nephrotoxic medications - renal vitamins - If K>5, lokelma will be started #Anemia of chronic disease - transfuse if Hgb <7 #Type 2 DM - POC glucose TID with meals and at bedtime #HTN - continue home carvedilol and lisinopril #Diastolic dysfunction - echo 05/21/23 showed grade 2 diastolic dysfunction Code: Full Diet: Renal Electrolytes: Replete PRN PPx: heparin Access: PIV Dispo: pending medical clearance The above assessment and plan will be discussed with the attending. This note is not final until attested by attending physician. Roberto No MD Internal Medicine Resident [facility] 08/02/2024 9:32 AM Associated attestation - Geronimo Burleson MD - 08/02/2024 4:35 PM CDT I saw and examined Ms. Canales with the resident physician. I agree with the findings and care plan as documented by the resident physician. Nursing staff updated with changes to care plan. Updates to disposition plan discussed with social work and case management. Care plan discussed in person with infectious diseases consultants. 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, with long-term current use of insulin ([facility]) (POA: Yes) Hypoalbuminemia (POA: Yes) Septic arthritis of shoulder, right (HCC) (POA: Yes) Pneumonia of both lungs due to infectious organism, unspecified part of lung (POA: Yes) Acute pain of right shoulder (POA: Yes) Sepsis due to methicillin resistant Staphylococcus aureus (MRSA) ([facility]) (POA: Yes) Dyslipidemia (POA: Yes) Obesity, Class II, BMI 35-39.9 (POA: Yes) Hyponatremia (POA: Yes) Hyperkalemia (POA: Yes) Hyperphosphatemia (POA: Yes) Hypocalcemia (POA: Yes) Chronic ulcer of right heel (HCC) (POA: Unknown) Osteomyelitis of right foot (HCC) (POA: Yes) Geronimo Burleson MD Hospitalist [employer] Super[employer] [facility] Signed: 08/02/2024 4:35 PM * Debra Rodríguez RN - 08/01/2024 10:55 PM CDT Problem: Pain/Discomfort Goal: Patient exhibits [...] in the flowsheet documentation) Outcome: Progressing Problem: Fluid and Electrolyte Imbalance Goal: Fluid and electrolyte balance are achieved/maintained Outcome: Progressing Problem: Infection Goal: Signs and symptoms of infections are decreased or avoided Outcome: Progressing * Edgar Camarillo RN - 08/01/2024 5:04 PM CDT Problem: Pain/Discomfort Goal: Patient exhibits [...] in the flowsheet documentation) Outcome: Progressing Problem: Infection Goal: Signs and symptoms of infections are decreased or avoided Outcome: Progressing * Aneta Lopez MD - 08/01/2024 4:28 PM CDT ATTENDING NEPHROLOGY PROGRESS NOTE PT NAME : Leeroy Canales PT Date of admit : 07/25/2024 8:15 PM SUBJECTIVE: Seen in the room this morning, no overnight events noted. Patient is sleeping peacefully. Hemodialysis yesterday tolerated well. OBJECTIVE: VITALS: Patient Vitals in the past 8 hrs: 08/01/24 1437, BP:149/87, Temp:98.7 ??F (37.1 ??C), Temp src:Oral, Pulse:79, Resp:18, SpO2:95 % I/O: Intake/Output Summary (Last 24 hours) at 08/01/24 1628 Last data filed at 08/01/24 1300 Gross per 24 hour Intake: 480 ml Output: -- Net : 480 ml PHYSICAL EXAM: General: Not in any distress HEENT: EOMI, PERRLA Neck: JVD Chest: Normal vesicular breathing Heart: S1, S2 Abdomen: Nontender nondistended Extremities: No edema Neuro: Intact Access: Left IJ Juan catheter Exam otherwise grossly unremarkable. MEDS: 0.9% NaCl, 3 mL, Intracatheter, q8h ammonium lactate, , Topical, BID carvedilol, 12.5 mg, Oral, BID WC epoetin, 5,000 Units, Intravenous, DIALYSIS TUE, BLUE, & SAT ferrous sulfate, 325 mg, Oral, QDAY WITH BREAKFAST furosemide, 40 mg, Oral, QDAY gabapentin, 300 mg, Oral, MON, WED AND FRI lisinopril, 20 mg, Oral, QDAY renal vitamin, 1 tablet, Oral, QDAY sevelamer carbonate, 1,600 mg, Oral, TID WC [START ON 08/03/2024] vancomycin, 500 mg, Intravenous, TUES, THUR & SAT vancomycin (VANCOCIN) IV dose per pharmacy, , Does not apply, DIRECTED vitamin D3, 5,000 Units, Oral, QDAY PRN MEDS: SALINE LOCK, INSERT AND MAINTAIN AND 0.9% NaCl AND 0.9% NaCl acetaminophen dextrose IV for hypoglycemia OR dextrose IV for hypoglycemia OR glucagon glucose (Diabetic Use) gel heparin 100 units/mL heparin HYDROmorphone oxyCODONE (immediate release) LAB: Component Name 09/29/24 0907/31/24 07/31/24 07/30/24 07/29/24 07/26/24 07/25/24 02/23/24 02/22/24 04/27/23 04/26/23 0042 1720 0737 0553 0644 0624 0850 2316 0746 2214 0729 0629 HGB 9.0* 9.6* - 8.6* 9.0* 9.4* - 9.5* - 9.6* - 7.7* WBC 15.0* 15.1* - 13.2* 9.6 10.4 - 13.0* - 18.0* - 15.5* HCT 29.7* 31.1* - 28.5* 29.5* 30.1* - 31.7* - 30.5* - 25.9* MCV 95.2 94.5 - 95.6 94.2 93.5 - 94.6 - 94.4 - 86.0 PT 14.0 - 14.6 - - - - 15.3* - 14.6 - 16.3* INR 1.1 - 1.2 - - - - 1.2 - 1.2 - 1.3 - = values in this interval not displayed. ) Component Name 08/01/24 07/31/24 07/30/24 07/29/24 07/28/24 0042 0553 0644 0624 0702 BUN 24 50* 44* 35* 29* CREATININE 5.20* 9.33* 9.32* 8.24* 6.64* NA 135* 137 135* 137 136 CL 100 102 104 100 102 CO2 22 * 23 24 CALCIUM 7.7* 7.5* 7.7* 8.2* 7.6* PHOS 4.7 8.9* 9.0* 8.0* 6.7* Component Name 08/01/24 07/31/24 07/30/24 07/29/24 07/28/24 05/25/24 05/24/24 02/22/24 06/10/23 05/22/23 05/21/23 0042 0553 0644 0624 0702 0643 0625 2214 0939 0521 0450 ALB 1.7* 1.6* 1.6* 1.7* 1.7* - 1.9* 1.5* 1.5* 1.4* 1.4* TBILI - - - - - - 0.1* 0.2 0.2 0.1* 0.2 ALT - - - - - - 25 11 8 5 6 AST - - - - - - 14 7 12 9 7 - = values in this interval not displayed. No results for input(s): PHART , TZT2WXW , PO2ART , NTG0FQR in the last 45362 hours. ESRD 2/2 DM2 on HD TTS and other co morbidities as noted in house staff note p/w right shoulder pain,imaging concerning for OM in the setting of known pyogenic arthritis, Nephrology consulted for HD needs Underwent I&D 07/27 Dialysis tunneled catheter was removed on July 28 to give a line free holiday in the settingof the positive blood cultures and a Trialysis temporary catheter was placed in the left IJ due to concerns of a DVT in the right IJ. A&P: ESRD on HD TTS HD on Friday Anemia of CKD NEELAM 5K on HD CKD- BMD On renvella [id number] tid C/w Vit D supplements Aneta Lopez MD Nephrology Attending * Roberto No MD - 08/01/2024 9:34 AM CDT Images from the original note were not included. [facility] INTERNAL MEDICINE PROGRESS NOTE Patient: Leeroy Canales Sex: female Age: [age] year old Date of : 1990 Date of Admission: 07/25/2024 Date: 08/01/2024 LOS: 7 SUBJECTIVE Interval History: Patient was seen today. She reports no acute overnight events. She denies chest pain, SOB, fever, or chills. She reports her pain is well managed and in control. She reports she tolerated her dialysis session well yesterday. She is still refusing the AKA of her fight leg for source control of the osteomyelitis. Hospital Course: Ms. Canales is a 33 year old female with a PMH significant for septic arthritis of L shoulder 06/2024, T2DM c/b retinopathy with blindness, ESRD on HD, HTN, HLD and HFpEF (last EF 74% with grade II diastolic dysfunction) who presented to an OSH on 07/25 for a 3 day history of progressive R shoulder pain. Per patient, the pain was present upon awakening that morning and progressed to a 10/10 deep thr obbing pain in her R upper arm. She denies any recent trauma to the area, but reports cold sweats and fevers of two weeks duration. Of note, patient reports that her should pain feels exactly the same as it did during her most recent admission (05/23-06/03) for infectious arthritis of L shoulder. Pertinent labs at OSH include WBC 12.9k, Hb 10.3, plt 255; ESR 90, CRP 29.4; CMP remarkable for Na 131. Synovial fluid of R shoulder showing 92% neutrophils. Patient started empirically on azithromycin, cefepime, and vancomycin at OSH. Patient is currently receiving only vancomycin. Patient is s/p arthrotomy, irrigation and debridement, and synovectomy (07/27). Patient underwent LIJ catheter placement f or dialysis after removal of her RIJ cath and successfully underwent dialysis. OBJECTIVE Vital Signs: Vitals: 07/31/24 1526 07/31/24 1527 07/31/24 2026 08/01/24 0806 BP: 120/74 120/74 149/83 141/87 Pulse: 88 88 88 87 Resp: 16 16 16 Temp: 99.3 ??F (37.4 ??C) 99.3 ??F (37.4 ??C) 99.3 ??F (37.4 ??C) 98.9 ??F (37.2 ??C) SpO2: 100% 100% 93% 97% Weight: Height: Temp Min: 97.6 ??F (36.4 ??C) Max: 100.7 ??F (38.2 ??C), Pulse Min: 72 Max: 91, Resp Min: 10 Max: 25, BP Min: 95/60 Max: 154/85 Intake & Output: In: - Out: 3002 Physical Exam: Physical Exam Constitutional: Appearance: Normal appearance. Cardiovascular: Rate and Rhythm: Normal rate and regular rhythm. Pulses: Normal pulses. Heart sounds: S1 normal and S2 normal. Murmur heard. Pulmonary: Effort: Pulmonary effort is normal. Breath sounds: Normal breath sounds and air entry. Abdominal: General: Abdomen is flat. Bowel sounds are normal. There is no distension. Palpations: Abdomen is soft. Tenderness: There is no abdominal tenderness. Comments: Black plaque noted in RLQ abdomen Musculoskeletal: Comments: Right foot wound pictures in media Left Lower Extremity: Left leg is amputated above knee. Feet: Right foot: Toenail Condition: Right toenails are abnormally thick. Skin: General: Skin is warm. Neurological: Mental Status: She is alert. Current Medications: Scheduled: 0.9% NaCl 3 mL Intracatheter q8h ammonium lactate Topical BID carvedilol 12.5 mg Oral BID WC epoetin 5,000 Units Intravenous DIALYSIS TUE, BLUE, & SAT ferrous sulfate 325 mg Oral QDAY WITH BREAKFAST furosemide 40 mg Oral QDAY gabapentin 300 mg Oral FRI, FRI AND FRI lisinopril 20 mg Oral QDAY renal vitamin 1 tablet Oral QDAY sevelamer carbonate 1,600 mg Oral TID WC [START ON 08/03/2024] vancomycin 500 mg Intravenous , & SAT vancomycin (VANCOCIN) IV dose per pharmacy Does not apply DIRECTED vitamin D3 5,000 Units Oral QDAY Continuous: heparin, 0-40 Units/kg/hr, Last Rate: 19 Units/kg/hr (08/01/24 0858) PRN: SALINE LOCK, INSERT AND MAINTAIN AND 0.9% NaCl AND 0.9% NaCl acetaminophen dextrose IV for hypoglycemia OR dextrose IV for hypoglycemia OR glucagon glucose (Diabetic Use) gel heparin 100 units/mL heparin HYDROmorphone oxyCODONE (immediate release) Significant Lab Results: CBC: Recent Labs Component Name 08/01/24 0042 07/31/24 1720 07/31/24 0553 12/03/22 0242 12/02/22 1955 WBC 15.0* 15.1* 13.2* - 42.0* HGB 9.0* 9.6* 8.6* - 8.9* HCT 29.7* 31.1* 28.5* - 28.3* PLATELET - - - - Occasional* PLTCOUNT 490* 539* 575* - 556* - = values in this interval not displayed. BMP: Recent Labs Component Name 08/01/24 0042 07/31/24 0553 07/30/24 0644 12/02/22195408/25/22 0315 08/24/22 1404 08/24/22 0725 SODIUM - - - - 142 143 138 POTASSIUM 4.0 4.7* 4.7* - 3.6 3.7 5.2* CHLORIDE - - - - 107 103 110* CO2 26 22 21* - 26 30 20* BUN 24 50* 44* - 13 9 8 CREATININE 5.20* 9.33* 9.32* - 1.58* 1.43* 1.42* GLUCOSE 220* 133* 167* - 211* 145* 165* CALCIUM 7.7* 7.5* 7.7* - 7.9* 8.2* 7.8* - = values in this interval not displayed. Microbiology: Microbiology Results (Displays last 21 days for this encounter ONLY) Procedure Component Value - Date/Time CULTURE BLOOD [[id number]] Collected: 08/01/24 014 Lab Status: In process Specimen: Blood Peripheral Updated: 08/01/24 0230 CULTURE BLOOD [[id number]] Collected: 08/01/24 0147 Lab Status: In process Specimen: Blood Peripheral Updated: 08/01/24 0230 CULTURE BLOOD [[id number]] Collected: 07/31/24 1720 Lab Status: In process Specimen: Blood Peripheral Updated: 07/31/24 1730 CULTURE BLOOD [[id number]] (Normal) Collected: 07/30/24 1213 Lab Status: Preliminary result Specimen: Blood Peripheral Updated: 07/31/24 1631 Culture No growth 24 hours CULTURE BLOOD [[id number]] (Normal) Collected: 07/30/24 1203 Lab Status: Preliminary result Specimen: Blood Peripheral Updated: 07/31/24 1631 Culture No growth 24 hours CULTURE BLOOD [[id number]] (Normal) Collected: 07/29/24 1636 Lab Status: Preliminary result Specimen: Blood Peripheral Updated: 07/31/24 2031 Culture No growth CULTURE BLOOD [[id number]] (Abnormal) Collected: 07/29/24 1117 Lab Status: Preliminary result Specimen: Blood Peripheral Updated: 07/31/24 1405 Culture Growth of Staphylococcus aureus methicillin-resistant (MRSA) Comment: Staphylococcus aureus methicillin-resistant (MRSA) detected by penicillin binding protein immunoassay. Contact precautions required. Conventional antibiotic susceptibility testing to follow. Gram Stain Gram-positive cocci in clusters Narrative: Methicillin-resistant Staphylococci (MRSA) are resistant to all currently available beta-lactam antibiotics with the exception of the newer cephalosporins with anti-MRSA activity. Contact precautionsrequired. Positive at 19 hours and 18 minutes Infectious disease consultation strongly recommended, where available. Refer to previously reported susceptibility testing, specimen number:[id number] CULTURE BLOOD [[id number]] (Abnormal) (Susceptibility) Collected: 07/28/24 2048 Lab Status: Preliminary result Specimen: Blood Peripheral Updated: 07/31/24 2123 Culture Growth of Staphylococcus aureus methicillin-resistant (MRSA) Comment: Staphylococcus aureus methicillin-resistant (MRSA) detected by penicillin binding protein immunoassay. Contact precautions required. Conventional antibiotic susceptibility testing to follow. Gram Stain Gram-positive cocci in clusters Narrative: Methicillin-resistant Staphylococci (MRSA) are resistant to all currently available beta-lactam antibiotics with the exception of the newer cephalosporins with anti-MRSA activity. Contact precautionsrequired. Positive at 26 Hours 12 Minutes Infectious disease consultation strongly recommended, where available. Susceptibility Staphylococcus aureus methicillin-resistant (MRSA) (1) Antibiotic Interpretation Microscan Method Status Oxacillin Resistant >=4 ug/mL CHARLES Final Vancomycin Susceptible 1 ug/mL CHARLES Final CULTURE BLOOD [[id number]] (Abnormal) Collected: 07/28/24 1753 Lab Status: Preliminary result Specimen: Blood Peripheral Updated: 08/01/24 0747 Culture Growth of Staphylococcus aureus methicillin-resistant (MRSA) Comment: Staphylococcus aureus methicillin-resistant (MRSA) detected by penicillin binding protein immunoassay. Contact precautions required. Conventional antibiotic susceptibility testing to follow. Gram Stain Gram-positive cocci in clusters Narrative: Methicillin-resistant Staphylococci (MRSA) are resistant to all currently available beta-lactam antibiotics with the exception of the newer cephalosporins with anti-MRSA activity. Contact precautionsrequired. Refer to previously reported susceptibility testing, specimen number: [id number] Positive at 41 Hours 58 Minutes Infectious disease consultation strongly recommended, where available. CULTURE ANAEROBE [[id number]] (Normal) Collected: 07/27/24 0911 Lab Status: Final result Specimen: Microbiology from Synovial Fluid Updated: 08/01/24 0807 Culture No anaerobic organisms isolated CULTURE FUNGUS OTHER+FUNGUS SMEAR [[id number]] (Normal) Collected: 07/27/24 0911 Lab Status: Preliminary result Specimen: Microbiology from Synovial Fluid Updated: 07/29/24 0623 Culture No fungus isolated Fungus Stain No yeast or hyphae seen CULTURE WOUND+GRAM STAIN [[id number]] (Abnormal) (Susceptibility) Collected: 07/27/24 0911 Lab Status: Final result Specimen: Microbiology from Shoulder Updated: 07/30/24 0429 Culture Rare Staphylococcus aureus methicillin-resistant (MRSA) Comment: Staphylococcus aureus methicillin-resistant (MRSA) detected by penicillin binding protein immunoassay. Contact precautions required. Conventional antibiotic susceptibility testing to follow. Gram Stain Light Polymorphonuclear cells No organisms seen Narrative: Methicillin-resistant Staphylococci (MRSA) are resistant to all currently available beta-lactam antibiotics with the exception of the newer cephalosporins with anti-MRSA activity. Contact precautionsrequired. Susceptibility Staphylococcus aureus methicillin-resistant (MRSA) (1) Antibiotic Interpretation Microscan Method Status Clindamycin Susceptible 0.25 ug/mL CHARLES Final Doxycycline Susceptible <=0.5 ug/mL CHARLES Final Inducible Clindamycin Resistance Neg NEG ug/mL CHARLES Final Oxacillin Resistant >=4 ug/mL CHARLES Final Trimethoprim-sulfamethoxazole Resistant >=320 ug/mL CHARLES Final Vancomycin Susceptible 1 ug/mL CHARLES Final CULTURE BLOOD [[id number]] (Abnormal) Collected: 07/26/24 2308 Lab Status: Final result Specimen: Blood Peripheral Updated: 07/29/24 1150 Culture Growth of Staphylococcus aureus methicillin-resistant (MRSA) Comment: Staphylococcus aureus methicillin-resistant (MRSA) detected by penicillin binding protein immunoassay. Contact precautions required. Conventional antibiotic susceptibility testing to follow. Gram Stain Gram-positive cocci in clusters Narrative: Methicillin-resistant Staphylococci (MRSA) are resistant to all currently available beta-lactam antibiotics with the exception of the newer cephalosporins with anti-MRSA activity. Contact precautionsrequired. Positive at 18 hours 59 minutes. Refer to previously reported susceptibility testing, specimen number: [id number] Infectious disease consultation strongly recommended, where available. CULTURE BLOOD [[id number]] (Abnormal) Collected: 07/26/24 2252 Lab Status: Final result Specimen: Blood Peripheral Updated: 07/29/24 0959 Culture Growth of Staphylococcus aureus methicillin-resistant (MRSA) Comment: Staphylococcus aureus methicillin-resistant (MRSA) detected by penicillin binding protein immunoassay. Contact precautions required. Conventional antibiotic susceptibility testing to follow. Gram Stain Gram-positive cocci in clusters Narrative: Methicillin-resistant Staphylococci (MRSA) are resistant to all currently available beta-lactam antibiotics with the exception of the newer cephalosporins with anti-MRSA activity. Contact precautionsrequired. Positive at 15 hours 11 minutes. Refer to previously reported susceptibility testing, specimen number: [id number] Infectious disease consultation strongly recommended, where available. CULTURE FLUID+GRAM STAIN [[id number]] (Abnormal) (Susceptibility) Collected: 07/26/24 1320 Lab Status: Final result Specimen: Other from Synovial Fluid Updated: 07/30/24 0333 Culture Heavy Staphylococcus aureus methicillin-resistant (MRSA) Gram Stain Heavy Polymorphonuclear cells Light Gram-positive cocci Narrative: Methicillin-resistant Staphylococci (MRSA) are resistant to all currently available beta-lactam antibiotics with the exception of the newer cephalosporins with anti-MRSA activity. Contact precautionsrequired. Susceptibility Staphylococcus aureus methicillin-resistant (MRSA) (1) Antibiotic Interpretation Microscan Method Status Clindamycin Susceptible 0.25 ug/mL CHARLES Final Doxycycline Susceptible <=0.5 ug/mL CHARLES Final Inducible Clindamycin Resistance Neg NEG ug/mL CHARLES Final Oxacillin Resistant >=4 ug/mL CHARLES Final Trimethoprim-sulfamethoxazole Resistant >=320 ug/mL CHARLES Final Vancomycin Susceptible 1 ug/mL CHARLES Final CULTURE ANAEROBE [[id number]] (Normal) Collected: 07/26/24 1320 Lab Status: Final result Specimen: Microbiology from Synovial Fluid Updated: 08/01/24 0807 Culture No anaerobic organisms isolated CULTURE BLOOD [[id number]] (Abnormal) Collected: 07/25/24 2318 Lab Status: Final result Specimen: Blood Peripheral Updated: 07/28/24 1110 Culture Growth of Staphylococcus aureus methicillin-resistant (MRSA) Comment: Staphylococcus aureus methicillin-resistant (MRSA) detected by penicillin binding protein immunoassay. Contact precautions required. Conventional antibiotic susceptibility testing to follow. Gram Stain Gram-positive cocci in clusters Narrative: Methicillin-resistant Staphylococci (MRSA) are resistant to all currently available beta-lactam antibiotics with the exception of the newer cephalosporins with anti-MRSA activity. Contact precautionsrequired. Contact precautions required. Positive at 12 hours 7 minutes. Infectious disease consultation strongly recommended, where available. Refer to previously reported susceptibility testing, specimen number: [id number] CULTURE BLOOD [[id number]] (Abnormal) (Susceptibility) Collected: 07/25/24 2316 Lab Status: Final result Specimen: Blood Peripheral Updated: 07/28/24 1440 Culture Growth of Staphylococcus aureus methicillin-resistant (MRSA) Comment: Staphylococcus aureus methicillin-resistant (MRSA) detected by penicillin binding protein immunoassay. Contact precautions required. Conventional antibiotic susceptibility testing to follow. Gram Stain Gram-positive cocci in clusters Narrative: Methicillin-resistant Staphylococci (MRSA) are resistant to all currently available beta-lactam antibiotics with the exception of the newer cephalosporins with anti-MRSA activity. Contact precautionsrequired. Positive at 12 hours 50 minutes. Infectious disease consultation strongly recommended, where available. Susceptibility Staphylococcus aureus methicillin-resistant (MRSA) (1) Antibiotic Interpretation Microscan Method Status Oxacillin Resistant >=4 ug/mL CHARLES Final Vancomycin Susceptible 1 ug/mL CHARLES Final BCID PANEL [[id number]] (Abnormal) Collected: 07/25/24 2316 Lab Status: Final result Specimen: Blood Peripheral Updated: 07/26/24 1644 Staphylococcus aureus Detected MECA/C and MREJ (Methicillin-Resistance Gene) Detected Comment: Results indicate methicillin-resistant Staphylococcus aureus (MRSA). Methicillin resistance detected. Narrative: Blood Culture ID Panel performed by [employer] multiplex PCR. The Test panel includes: Gram Positive Bacteria: Enterococcus faecalis, Enterococcus faecium, Listeria monocytogenes, Staphylococcus (genus), Staphylococcus aureus, Staphylococcus epidermidis, Staphylococcus lugdunensis, Streptococcus (genus), Streptococcus agalactiae (Group B), Streptococcus pneumoniae, Streptococcus pyogenes (Group A). Gram Negative Bacteria: Acinetobacter baumannii complex, Bacteroides fragilis, Haemophilus influenzae, Neisseria meningitidis (encapsulated), Pseudomonas aeruginosa, Stenotrophomonas maltophilia, Enterobacterales (formerly Enterobacteriaceae family), Enterobacter cloacae complex, Escherichia coli, K lebsiella (formerly Enterobacter) aerogenes, Klebsiella oxytoca, Klebsiella pneumoniae group, Proteus (genus), Salmonella species, Serratia marcescens. YEAST: Larisa albicans, Larisa auris, Larisa glabrata, Larisa krusei, Larisa parapsilosis, Larisa tropicalis, Cryptococcus neoformans/gattii. Antimicrobial Resistance Genes: CTX-M (extended-spectrum beta-lactamase), IMP ([place] beta-lactamase), KPC (carbapenemase), mcr-1 (colistin resistance determinant) mecA/C (methicillin-resistance), mecA/C and MREJ (methicillin- resistance - MRSA), NDM ([place] yhdupqu-glys-fafoqalwe), OXA-48-like ( oxacillinase beta-lactamase),Geo/B (vancomycin-resistance), VIM ([place] Intergrom-Encoded [place] beta-lactamase). Imaging & Studies: IR Central Line Insert Tunnel Result Date: 07/30/2024 IMPRESSION: Successful Left internal jugular tunneled central venous Trialysis catheter placement. > Interpreting Provider: Husam Palacios MD on 07/30/2024 5:19 PM MRI Cervical Spine Wwo Cont Result Date: 07/30/2024 IMPRESSION: 1. Normal MRI of the cervical spine. 2. An incompletely imaged T2/STIR hyperintense lesion in the apex of the left thorax/superior mediastinum measuring approximately 2.3 x 4.0 cm on sagittal T2 and STIR sequences, corresponds to a cluster of mildly enlarged lymph nodes seen on the chest CT dated 07/27/2024. > Interpreting Provider: Leeanna Mathew MD on 07/30/2024 11:[address] Foot Right W Contrast Result Date: 07/28/2024 IMPRESSION: Wound at the plantar aspect of the hindfoot overlying the calcaneal tuberosity. Changesin the underlying calcaneus compatible with sequela of osteomyelitis. 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, with long-term current use of insulin ([facility]) (POA: Yes) Hypoalbuminemia (POA: Yes) Septic arthritis of shoulder, right ([facility]) (POA: Yes) Pneumonia of both lungs due to infectious organism, unspecified part of lung (POA: Yes) Acute pain of right shoulder (POA: Yes) Sepsis due to methicillin resistant Staphylococcus aureus (MRSA) ([facility]) (POA: Yes) Dyslipidemia (POA: Yes) Obesity, Class II, BMI 35-39.9 (POA: Yes) Hyponatremia (POA: Yes) Hyperkalemia (POA: Yes) Hyperphosphatemia (POA: Yes) Hypocalcemia (POA: Yes) Chronic ulcer of right heel (HCC) (POA: Unknown) Osteomyelitis of right foot (HCC) (POA: Yes) #MRSA bacteremia #Septic arthritis of right shoulder s/p I&D - TTE was negative for endocarditis, MATT preliminarily negative for vegetations - aspiration of right should grew MRSA - ID and ortho team on board - IV vancomycin - MRI cervical spine was normal - 2 sets of blood cultures every 24-48 hours until negative for > 72 hours on 2 consecutive days #Right foot osteomyelitis - osteomyelitis seen on CT of the foot - vascular surgery consulted; they recommended amputation for source control but patient refused. Surgical debridement not beneficial as per surgery team. - Wound care #ESRD on HD TTS - Nephrology on board; currently permacath was removed due to MRSA bacteremia - Will need two sets of negative blood cultures before permacath can be replaced - LIJ catheter inserted; will undergo dialysis today - Low K diet and fluid restriction - Strict I&O's, daily weights, avoid nephrotoxic medications - renal vitamins - If K>5, lokelma will be started #Anemia of chronic disease - transfuse if Hgb <7 #Type 2 DM - POC glucose TID with meals and at bedtime #HTN - continue home carvedilol and lisinopril #Diastolic dysfunction - echo 05/21/23 showed grade 2 diastolic dysfunction Code: Full Diet: Renal Electrolytes: Replete PRN PPx: heparin Access: PIV Dispo: pending medical clearance The above assessment and plan will be discussed with the attending. This note is not final until attested by attending physician. Rboerto No MD Internal Medicine Resident [facility] 08/01/2024 9:34 AM Associated attestation - Geronimo Burleson MD - 08/01/2024 4:02 PM CDT I saw and examined Ms. Canales with the resident physician. I agree with the findings and care plan as documented by the resident physician. Nursing staff updated with changes to care plan. 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, with long-term current use of insulin (HCC) (POA: Yes) Hypoalbuminemia (POA: Yes) Septic arthritis of shoulder, right (HCC) (POA: Yes) Pneumonia of both lungs due to infectious organism, unspecified part of lung (POA: Yes) Acute pain of right shoulder (POA: Yes) Sepsis due to methicillin resistant Staphylococcus aureus (MRSA) (HCC) (POA: Yes) Dyslipidemia (POA: Yes) Obesity, Class II, BMI 35-39.9 (POA: Yes) Hyponatremia (POA: Yes) Hyperkalemia (POA: Yes) Hyperphosphatemia (POA: Yes) Hypocalcemia (POA: Yes) Chronic ulcer of right heel (HCC) (POA: Unknown) Osteomyelitis of right foot (HCC) (POA: Yes) Geronimo Burleson MD Hospitalist [employer] Super[employer] [facility] Signed: 08/01/2024 4:02 PM * Reba Mclean RN - 08/01/2024 7:52 AM CDT Problem: Pain/Discomfort Goal: Patient exhibits reduced pain/discomfort as evidenced by pain scores Outcome: Progressing Problem: Pain/Discomfort Goal: Patient uses pharmacological and non-pharmacological pain management strategies. Outcome: Progressing Problem: Pain/Discomfort Goal: Patient verbalizes acceptable level of pain relief and ability to engage in desired activity. Outcome: Progressing Problem: Fall Risk Goal: Fall risk and fall related injury risk are minimized (interventions related to the fall risk can be found in the flowsheet documentation) Outcome: Progressing Problem: Nutrient: Increased nutrient needs (specify) Goal: Total intake will meet estimated nutrient needs Outcome: Progressing * Nadir Cox - 08/01/2024 7:04 AM CDT [facility] INTERNAL MEDICINE PROGRESS NOTE Patient: Leeroy Canales Sex: female Age: [age] year old Date of : 1990 Date of Admission: 07/25/2024 Date: 08/01/2024 LOS: 7 SUBJECTIVE Interval History: -NAEON, AFVSS, Saturating on 2L NC -Pt reports pain currently managed, received Dilaudid x3 ON -Pt denies fever, SOB, chest, N/V/D -R shoulder dressing c/d/I, R clavicular dressing c/d/I, R foot dressing c/d/I, hyperpigmentation and hyperpigmented lesions look worse today with some lesions up to below knee level -LIJ HD cath in place without significant erythema, drainage at site -CBC s/f stable WBC 15<15.1, stable anemia (Hgb 9<9.6), thrombocytosis Pt 490<539 -RFP s/f improved renal function (BUN 24<50 & Cr 5.2<9.33) s/p HD, stable hypoalbuminemia(Alb 1.7<1.6), Mag WNL (2) -PT/INR WNL, PTT therapeutic range (73.2) -Pt receiving HD 07/31, UF 3L -Most recent BC 07/30: x2 no growth @24H, 07/29 S. Aureus x1 Hospital Course: Leeroy Canales is a 33 yo F w PMHx of HTN, HLD, T2DM (05/2024 A1c 6.2), HFpEF, ESRD on HD T/T/S, Hx RUE DVT, chronic anemia, PVD s/p L AKA, blindness, and recent L shoulder septic arthritis 06/26 presenting for MRSA bacteremia with R shoulder septic arthritis and osteomyelitis now s/p I&D (06/26) & chronic R foot OM. Pt presented with R shoulder 10/10 throbbing pain with fever and cold sweats, reporting pain in R shoulder similar in character to prior L shoulder infection. Patient presented from rehab for LLE prosthesis. Pt admitted for further workup and infection control. Since admission, MRSA bacteremia confirmed with blood cultures and R shoulder wound culture MRSA positive with TTE negative for endocarditis, pending MATT to confirm. CT CAP showed R shoulder septic arthritis and OM as well as L shoulder fluid collection and bilateral pulmonary infiltrates. Pt underwent arthrotomy, I&D, and synvectomy per ortho for source control. ID following and pt on IV vanc . Nephrology following and removed dialysis catheter and holding HD amidst infection with low K diet and Lasix. OBJECTIVE Vital Signs: Vitals: 07/31/24 1521 07/31/24 1526 07/31/24 1527 07/31/242025 BP: 114/73 120/74 120/74 149/83 Pulse: 88 88 88 88 Resp: 16 16 16 Temp: 99.3 ??F (37.4 ??C) 99.3 ??F (37.4 ??C) 99.3 ??F (37.4 ??C) SpO2: 100% 100% 100% 93% Weight: Height: Temp Min: 97.6 ??F (36.4 ??C) Max: 100.7 ??F (38.2 ??C), Pulse Min: 72 Max: 91, Resp Min: 10 Max: 25, BP Min: 95/60 Max: 154/85 Intake & Output: In: - Out: 3002 Physical Exam: General: Black/ female in NAD; AAOx4; conversational; follows commands HEENT: NC/AT; EOMI; conjunctiva normal; anicteric sclera Neck: Supple; no carotid bruit Chest: CTAB; no wheezes, crackles or rhonchi Cardiovascular: RRR, no murmurs, palpable peripheral pulses bilaterally Abdomen: Soft; +BS; non-tender; non-distended; no hepatosplenomegaly Extremities: No edema appreciated; moves all four extremities; R arm in cast and sling without tenderness to palpation, drain in place with minimal serosanginous drainage; R foot dressing c/d/I without pain to palpation; hyperpigmentation of mid calf with focal hyperpigmented macules seen beyond rodríguez ssing Skin: Skin warm, dry Neurological: CN II-XII grossly intact Psych: Normal mood and affect Current Medications: Scheduled: 0.9% NaCl 3 mL Intracatheter q8h ammonium lactate Topical BID carvedilol 12.5 mg Oral BID WC epoetin 5,000 Units Intravenous DIALYSIS TUE, BLUE, & SAT ferrous sulfate 325 mg Oral QDAY WITH BREAKFAST furosemide 40 mg Oral QDAY gabapentin 300 mg Oral MON, WED AND FRI gadoterate meglumine Intravenous Contrast - Once lisinopril 20 mg Oral QDAY renal vitamin 1 tablet Oral QDAY sevelamer carbonate 1,600 mg Oral TID WC [START ON 08/03/2024] vancomycin 500 mg Intravenous TUES, THUR & SAT vancomycin (VANCOCIN) IV dose per pharmacy Does not apply DIRECTED vitamin D3 5,000 Units Oral QDAY Continuous: heparin, 0-40 Units/kg/hr, Last Rate: 19 Units/kg/hr (08/01/24 0024) PRN: SALINE LOCK, INSERT AND MAINTAIN AND 0.9% NaCl AND 0.9% NaCl acetaminophen dextrose IV for hypoglycemia OR dextrose IV for hypoglycemia OR glucagon glucose (Diabetic Use) gel heparin 100 units/mL heparin HYDROmorphone oxyCODONE (immediate release) Significant Lab Results: Latest Reference Range & Units 07/31/24 17:20 08/01/24 00:42 WBC 4.0 - 10.7 x10E9/L 15.1 (H) 15.0 (H) RBC 3.90 - 5.20 x10E12/L 3.29 (L) 3.12 (L) Hemoglobin 11.9 - 15.8 g/dL 9.6 (L) 9.0 (L) Hematocrit 34.8 - 46.1 % 31.1 (L) 29.7 (L) MCV 80.0 - 98.0 fL 94.5 95.2 MCH 26.7 - 33.6 pg 29.2 28.8 MCHC 31.7 - 36.3 g/dL 30.9 (L) 30.3 (L) Platelet Count 150 - 420 x10E9/L 539 (H) 490 (H) RDW-CV 11.3 - 14.8 % 13.4 13.5 MPV 7.8 - 11.4 fL 8.9 8.9 Neutrophils % 41.0 - 74.0 % 76.1 (H) 70.3 Lymphocytes % 17.0 - 47.0 % 10.6 (L) 15.0 (L) Monocytes % 3.0 - 11.0 % 6.8 7.5 Eosinophils % 0.0 - 7.0 % 4.0 5.4 Basophils % 0.0 - 1.6 % 0.4 0.3 Neutrophil Absolute 1.60 - 7.50 x10E9/L 11.50 (H) 10.51 (H) Absolute Monocytes 0.15 - 1.00 x10E9/L 1.03 (H) 1.13 (H) Eosinophils Absolute 0.00 - 0.60 x10E9/L 0.61 (H) 0.81 (H) Absolute Basophils 0.00 - 0.13 x10E9/L 0.06 0.05 Latest Reference Range & Units 07/31/24 05:53 08/01/24 00:42 Sodium 136 - 145 mmol/L 137 135 (L) Potassium 3.5 - 4.5 mmol/L 4.7 (H) 4.0 Chloride 98 - 107 mmol/L 102 100 CO2 22 - 29 mmol/L 22 26 Anion Gap 6 - 16 13 9 BUN 7 - 26 mg/dL 50 (H) 24 Creatinine 0.56 - 0.96 mg/dL 9.33 (H) 5.20 (H) eGFR >=90 mL/min/1.73 m2 5 (L) 11 (L) Glucose 70 - 115 mg/dL 133 (H) 220 (H) Calcium 8.4 - 10.2 mg/dL 7.5 (L) 7.7 (L) Magnesium 1.6 - 2.6 mg/dL 2.2 2.0 Phosphorus 2.9 - 5.1 mg/dL 8.9 (H) 4.7 BUN/Creatinine Ratio 7 - 23 5 (L) 5 (L) Albumin 3.4 - 5.0 g/dL 1.6 (L) 1.7 (L) Osmolality Calculated 275 - 295 mOsm/kg 299 (H) 291 (L): Data is abnormally low (H): Data is abnormally high Latest Reference Range & Units 07/31/24 17:20 08/01/24 00:42 PT 12.1 - 14.8 Seconds 14.0 INR See Comment 1.1 APTT 23.0 - 38.4 Seconds 67.1 (H) 73.2 (H) Microbiology: 07/26/24 Blood Culture: MRSA + 07/27/24 Synovial Culture: Rare MRSA 07/29/24 Blood Culture: MRSA (prelim) 9/27/24 Blood Culture: negative @24H x2, x1 pending 07/31/24 BC: x2 pending Imaging & Studies: 07/25/24 CXR:FINDINGS/IMPRESSION: *Right internal jugular approach dialysis catheter terminates in the superior cavoatrial junction, unchanged. Mild bilateral interstitial opacities may represent mild interstitial edema and/or atypical infection. There is no confluent airspace consolidation. No pleural effusion or pneumothorax. Cardiomegaly is suggested on this portable AP projection exam, unchanged. Mediastinal contours are normal. The visible bony thorax is intact. 07/26/24 R Shoulder XR: IMPRESSION: Osseous erosions of the humeral head and scapula, 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 Findings are further characterized outside hospital CT from 07/25/2024 ([facility] Noacute fracture or dislocation. Partially imaged airspace opacity in the setting of the right lung. Recommend attention to dedicated chest radiograph. 07/27/24 CT CAP:Impression: 1.A 2.9 cm right subscapularis abscess with adjacent osteomyelitis of the right humeral head and septic arthritis. There is a surgical drain likely in the glenohumeral joint space. 2.An ill-defined fluid collection adjacent to the left humerus without a well-defined rim which may represent an early developing abscess versus phlegmon. 3.Cardiomegaly with pulmonary edema. 4.Dendriform pulmonary ossifications in the lung bases. 07/28/24 CT R Foot:IMPRESSION: Wound at the plantar aspect of the hindfoot overlying the calcaneal tuberosity. Changes in the underlying calcaneus compatible with sequela of osteomyelitis. 07/28/24 TTE:Summary * The left ventricle is normal in [...] high for endocarditis, would suggest transesophageal echocardiogram. 07/30/24 MRI Cervical Spine wwo Contrast:IMPRESSION: 1. Normal MRI of the cervical spine. 2. An incompletely imaged T2/STIR hyperintense lesion in the apex of the left thorax/superior mediastinum measuring approximately 2.3 x 4.0 cm on sagittal T2 and STIR sequences, corresponds to a cluster of mildly enlarged lymph nodes seen on the chest CT dated 07/27/2024. 07/30/24 NORMA: R 1.33, R digit 131 07/30/24 R Venous Duplex US: Findings suggest right upper extremity deep venous thrombosis involvinginternal jugular vein. Superficial thrombosis is detected in the right cephalic. ASSESSMENT & PLAN MRSA Bacteremia c/b R Shoulder Septic Arthritis & OM & R Foot OM -CT R Foot consistent with OM, CT CAP consistent with R humeral head OM and septic arthritis -I&D R shoulder 07/27 per ortho, synovial aspirate growing S. Aureus -TTE negative for endocarditis, MATT complete no vegetation seen -NORMA WNL with adequate R toe pressure -MRI Cervical Spine showed cluster of mildly enlarged LN's Plan: -ID following, appreciate recs -2 sets of BC q24-48h till negative >72hrs on 2 consecutive days -IV vancomycin per pharm -CBC qD -RFP, vanc trough at least weekly -ESR, CRP due on 08/01 -Ortho following, appreciate recs -Hemovac removed today, dressing change q48h -Vasc surgery consulted for R foot OM, recommend R AKA but currently no intervention per patient preference. -Wound care for R foot: Betadine soaked gauze to wound bed, cover with ABD and wrap with kerlix. Heel offloading boot at all times. Ammonium lactate from base of toes to knees daily to intact skin for dry skin. RIJ DVT -RUE US showing acute RIJ DVT Hep gtt for PTT 69-110, PTT qD Possible PNA -CT CAP showed bilateral pulmonary infiltrates -Currently covered on empiric Abx ESRD on HD T/T/S -Nephro consulted for HD management -RIJ permcatch removed 07/28, last HD 07/27 -Nephro placed trialysis line (07/30) for weekend HD -Pt receiving HD today -Need 2 sets of neg BC before permcatch can be replaced -Lokelma 10g qD x3days per nephro -Renvela 1600 TID per nephro -Lasix 40 IV qD -Continue renal multivitamin -VitD per nephro HFpEF -TTE 07/29 showed EF 55% with Grade II LV diastolic dysfunction and mild LAE -continue home carvedilol 12.5mg BID, lisinopril 20mg qD T2DM -not currently taking diabetes medication due to well-controlled -last A1c 05/25/24 6.2 -Accucheck TIDAC, CTM, BG ranging 103-239 X24H Chronic Anemia -Continue home iron 800mg TID Diabetic Neuropathy -Continue home gabapentin MWF Code: Full Diet: NPO for MATT Electrolytes: Replete PRN PPx: Heparin Access: R Shoulder Drain + PIV Dispo: Floor The above assessment and plan was discussed with the attending. This note is not final until attested by attending physician. Nadir Cox M3 - Internal Medicine [facility] 08/01/2024 7:04 AM Associated attestation - Geronimo Burleson MD - 08/01/2024 4:02 PM CDT This note is for educational purposes only and has not necessarily been verified. * Reba Mclean, JIMMIE - 08/01/2024 3:37 AM CDT Progress notes: 2000hr: Patient's care received from day nurse in bed alert and oriented to person, place and situation, iv catheter intact, infusing heparin without difficulty, denies pain, positioned comfortably in bed, call light and phone put near reach. 2100hr: Medication administered as ordered. 0000hr: No acute events, blood drawn and sample sent to lab for PTT check. 0200hr: No acute events, IV Heparin infusing without difficulty. 0500hr: No acute events. 0600hr: Blood drawn for PTT. 0700HR: handed over to day nurse. * Ayde Dodd RN - 07/31/2024 7:26 PM CDT Pt has been compliant with all meds today. Pt did not pain with IJ area however pain medication wasgiven. Pt has maintained being alert and oriented during the shift. Plan of care was reviewed with pt prior to going to dialysis. Pt started on Heparin drip prior to dialysis tx. Pt has received Vancomycin abx as well and tolerated both. Heparin drip titrated to new PTT result. Pt has been able to r est. Left BKA elevated for comfort. * Keisha Garner RN - 07/31/2024 3:55 PM CDT 07/31/24 1521 Post Hemodialysis Patient Response to Treatment good/ hd tx complete Post Dialysis Patient Status Treatment Completed;Returned to room Ultrafiltration Amount (ml) 3002 Dialyzer Clearance Moderately streaked Amount of blood processed (Liters) 73.1 Post Hemodialysis Comment pt hd tx complete uf 3l.main. heparin during hd tx v/s stable during hd tx . pt awake and alert . denies pain at this time. TX Charge entered in Charge Capture Yes * Keisha Garner RN - 07/31/2024 1:05 PM CDT Pt hd tx int. Pt tolerates hd tx well Uf goal 3l ( REACHED 3 l ) Problem: Infection Goal: Signs and symptoms of infections are decreased or avoided Outcome: Progressing * Roberto No MD - 07/31/2024 1:00 PM CDT Images from the original note were not included. [facility] INTERNAL MEDICINE PROGRESS NOTE Patient: Leeroy Canales Sex: female Age: [age] year old Date of : 1990 Date of Admission: 07/25/2024 Date: 07/31/2024 LOS: 6 SUBJECTIVE Interval History: Patient was seen today. She did not have acute events overnight. She is saturating well on 2L NC. She reports her pain is currently well managed. She denies fever, chills, chest pain, SOB, abdominal pain, nausea, vomiting, or diarrhea. LIJ catheter was placed yesterday, she is scheduled to undergo dialysis today. RUE duplex showed RIJ DVT and right cephalic superficial thrombus. MATT showed no vegetation but pending final report. Blood cultures still growing MRSA. Hospital Course: Ms. Canales is a 33 year old female with a PMH significant for septic arthritis of L shoulder 06/2024, T2DM c/b retinopathy with blindness, ESRD on HD, HTN, HLD and HFpEF (last EF 74% with grade II diastolic dysfunction) who presented to an OSH on 07/25 for a 3 day history of progressive R shoulder pain. Per patient, the pain was present upon awakening that morning and progressed to a 10/10 deep thr obbing pain in her R upper arm. She denies any recent trauma to the area, but reports cold sweats and fevers of two weeks duration. Of note, patient reports that her should pain feels exactly the same as it did during her most recent admission (05/23-06/03) for infectious arthritis of L shoulder. Pertinent labs at OSH include WBC 12.9k, Hb 10.3, plt 255; ESR 90, CRP 29.4; CMP remarkable for Na 131. Synovial fluid of R shoulder showing 92% neutrophils. Patient started empirically on azithromycin, cefepime, and vancomycin at OSH. Patient is currently receiving only vancomycin. Patient is s/p arthrotomy, irrigation and debridement, and synovectomy (07/27). OBJECTIVE Vital Signs: Vitals: 07/31/24 1200 07/31/24 1215 07/31/24 1230 07/31/24 1245 BP: 131/79 129/80 120/73 121/74 Pulse: 80 80 81 82 Resp: 16 16 16 16 Temp: SpO2: Weight: Height: Temp Min: 97.6 ??F (36.4 ??C) Max: 100.7 ??F (38.2 ??C), Pulse Min: 72 Max: 91, Resp Min: 10 Max: 25, BP Min: 95/60 Max: 154/85 Intake & Output: In: 475 [P.O.:475] Out: 0 Physical Exam: Physical Exam Constitutional: Appearance: Normal appearance. Cardiovascular: Rate and Rhythm: Normal rate and regular rhythm. Pulses: Normal pulses. Heart sounds: S1 normal and S2 normal. Murmur heard. Pulmonary: Effort: Pulmonary effort is normal. Breath sounds: Normal breath sounds and air entry. Abdominal: Comments: Black plaque noted in RLQ abdomen Musculoskeletal: Comments: Right foot wound pictures in media Left Lower Extremity: Left leg is amputated below knee. Neurological: Mental Status: She is alert. Current Medications: Scheduled: 0.9% NaCl 3 mL Intracatheter q8h ammonium lactate Topical BID carvedilol 12.5 mg Oral BID WC epoetin 5,000 Units Intravenous DIALYSIS TUE, BLUE, & SAT ferrous sulfate 325 mg Oral QDAY WITH BREAKFAST furosemide 40 mg Oral QDAY gabapentin 300 mg Oral MON, WED AND FRI gadoterate meglumine Intravenous Contrast - Once heparin 500 Units Intracatheter every hour lisinopril 20 mg Oral QDAY renal vitamin 1 tablet Oral QDAY sevelamer carbonate 1,600 mg Oral TID WC sodium zirconium cyclosilicate 10 g Oral QDAY vancomycin 500 mg Intravenous Once [START ON 08/03/2024] vancomycin 500 mg Intravenous TU, THUR & SAT vancomycin (VANCOCIN) IV dose per pharmacy Does not apply DIRECTED vitamin D3 5,000 Units Oral QDAY Continuous: heparin, 0-40 Units/kg/hr, Last Rate: 18 Units/kg/hr (07/31/24 1017) PRN: SALINE LOCK, INSERT AND MAINTAIN AND 0.9% NaCl AND 0.9% NaCl acetaminophen dextrose IV for hypoglycemia OR dextrose IV for hypoglycemia OR glucagon glucose (Diabetic Use) gel heparin 100 units/mL heparin HYDROmorphone oxyCODONE (immediate release) Significant Lab Results: CBC: Recent Labs Component Name 07/31/24 0553 07/30/24 0644 07/29/2462312/03/222 12/02/221954 WBC 13.2* 9.6 10.4 - 42.0* HGB 8.6* 9.0* 9.4* - 8.9* HCT 28.5* 29.5* 30.1* - 28.3* PLATELET - - - - Occasional* PLTCOUNT 575* 471* 467* - 556* - = values in this interval not displayed. BMP: Recent Labs Component Name 07/31/24 0553 07/30/24 0644 07/29/2462312/02/22195408/25/2231408/24/22 1404 08/24/22 0725 SODIUM - - - - 142 143 138 POTASSIUM 4.7* 4.7* 4.5 - 3.6 3.7 5.2* CHLORIDE - - - - 107 103 110* CO2 22 21* 23 - 26 30 20* BUN 50* 44* 35* - 13 9 8 CREATININE 9.33* 9.32* 8.24* - 1.58* 1.43* 1.42* GLUCOSE 133* 167* 127* - 211* 145* 165* CALCIUM 7.5* 7.7* 8.2* - 7.9* 8.2* 7.8* - = values in this interval not displayed. Microbiology: Microbiology Results (Displays last 21 days for this encounter ONLY) Procedure Component Value - Date/Time CULTURE BLOOD [[id number]] Lab Status: No result Specimen: Blood Peripheral CULTURE BLOOD [[id number]] Lab Status: No result Specimen: Blood Peripheral CULTURE BLOOD [[id number]] Collected: 07/30/24 1213 Lab Status: In process Specimen: Blood Peripheral Updated: 07/30/24 1235 CULTURE BLOOD [[id number]] Collected: 07/30/24 1203 Lab Status: In process Specimen: Blood Peripheral Updated: 07/30/24 1235 CULTURE BLOOD [[id number]] (Normal) Collected: 07/29/24 1636 Lab Status: Preliminary result Specimen: Blood Peripheral Updated: 07/30/24 2030 Culture No growth 24 hours CULTURE BLOOD [[id number]] (Abnormal) Collected: 07/29/24 1117 Lab Status: Preliminary result Specimen: Blood Peripheral Updated: 07/31/24 1152 Culture Growth of Staphylococcus aureus Gram Stain Gram-positive cocci in clusters Narrative: Positive at 19 hours and 18 minutes Infectious disease consultation strongly recommended, where available. CULTURE BLOOD [[id number]] (Abnormal) Collected: 07/28/24 2048 Lab Status: Preliminary result Specimen: Blood Peripheral Updated: 07/31/24 0835 Culture Growth of Staphylococcus aureus methicillin-resistant (MRSA) Comment: Staphylococcus aureus methicillin-resistant (MRSA) detected by penicillin binding protein immunoassay. Contact precautions required. Conventional antibiotic susceptibility testing to follow. Gram Stain Gram-positive cocci in clusters Narrative: Methicillin-resistant Staphylococci (MRSA) are resistant to all currently available beta-lactam antibiotics with the exception of the newer cephalosporins with anti-MRSA activity. Contact precautionsrequired. Positive at 26 Hours 12 Minutes Infectious disease consultation strongly recommended, where available. CULTURE BLOOD [[id number]] (Abnormal) Collected: 07/28/24 1753 Lab Status: Preliminary result Specimen: Blood Peripheral Updated: 07/30/24 1802 Culture No growth 24 hours Gram Stain Gram-positive cocci in clusters Narrative: Positive at 41 Hours 58 Minutes CULTURE ANAEROBE [[id number]] (Normal) Collected: 07/27/24 0911 Lab Status: Preliminary result Specimen: Microbiology from Synovial Fluid Updated: 07/30/24 1357 Culture No anaerobic organisms isolated to date. CULTURE FUNGUS OTHER+FUNGUS SMEAR [[id number]] (Normal) Collected: 07/27/24 0911 Lab Status: Preliminary result Specimen: Microbiology from Synovial Fluid Updated: 07/29/24 0623 Culture No fungus isolated Fungus Stain No yeast or hyphae seen CULTURE WOUND+GRAM STAIN [[id number]] (Abnormal) (Susceptibility) Collected: 07/27/24 0911 Lab Status: Final result Specimen: Microbiology from Shoulder Updated: 07/30/24 0429 Culture Rare Staphylococcus aureus methicillin-resistant (MRSA) Comment: Staphylococcus aureus methicillin-resistant (MRSA) detected by penicillin binding protein immunoassay. Contact precautions required. Conventional antibiotic susceptibility testing to follow. Gram Stain Light Polymorphonuclear cells No organisms seen Narrative: Methicillin-resistant Staphylococci (MRSA) are resistant to all currently available beta-lactam antibiotics with the exception of the newer cephalosporins with anti-MRSA activity. Contact precautionsrequired. Susceptibility Staphylococcus aureus methicillin-resistant (MRSA) (1) Antibiotic Interpretation Microscan Method Status Clindamycin Susceptible 0.25 ug/mL CHARLES Final Doxycycline Susceptible <=0.5 ug/mL CHARLES Final Inducible Clindamycin Resistance Neg NEG ug/mL CHARLES Final Oxacillin Resistant >=4 ug/mL HCARLES Final Trimethoprim-sulfamethoxazole Resistant >=320 ug/mL CHARLES Final Vancomycin Susceptible 1 ug/mL CHARLES Final CULTURE BLOOD [[id number]] (Abnormal) Collected: 07/26/24 2308 Lab Status: Final result Specimen: Blood Peripheral Updated: 07/29/24 1150 Culture Growth of Staphylococcus aureus methicillin-resistant (MRSA) Comment: Staphylococcus aureus methicillin-resistant (MRSA) detected by penicillin binding protein immunoassay. Contact precautions required. Conventional antibiotic susceptibility testing to follow. Gram Stain Gram-positive cocci in clusters Narrative: Methicillin-resistant Staphylococci (MRSA) are resistant to all currently available beta-lactam antibiotics with the exception of the newer cephalosporins with anti-MRSA activity. Contact precautionsrequired. Positive at 18 hours 59 minutes. Refer to previously reported susceptibility testing, specimen number: [id number] Infectious disease consultation strongly recommended, where available. CULTURE BLOOD [[id number]] (Abnormal) Collected: 07/26/24 2252 Lab Status: Final result Specimen: Blood Peripheral Updated: 07/29/24 0959 Culture Growth of Staphylococcus aureus methicillin-resistant (MRSA) Comment: Staphylococcus aureus methicillin-resistant (MRSA) detected by penicillin binding protein immunoassay. Contact precautions required. Conventional antibiotic susceptibility testing to follow. Gram Stain Gram-positive cocci in clusters Narrative: Methicillin-resistant Staphylococci (MRSA) are resistant to all currently available beta-lactam antibiotics with the exception of the newer cephalosporins with anti-MRSA activity. Contact precautionsrequired. Positive at 15 hours 11 minutes. Refer to previously reported susceptibility testing, specimen number: [id number] Infectious disease consultation strongly recommended, where available. CULTURE FLUID+GRAM STAIN [[id number]] (Abnormal) (Susceptibility) Collected: 07/26/24 1320 Lab Status: Final result Specimen: Other from Synovial Fluid Updated: 07/30/24 0333 Culture Heavy Staphylococcus aureus methicillin-resistant (MRSA) Gram Stain Heavy Polymorphonuclear cells Light Gram-positive cocci Narrative: Methicillin-resistant Staphylococci (MRSA) are resistant to all currently available beta-lactam antibiotics with the exception of the newer cephalosporins with anti-MRSA activity. Contact precautionsrequired. Susceptibility Staphylococcus aureus methicillin-resistant (MRSA) (1) Antibiotic Interpretation Microscan Method Status Clindamycin Susceptible 0.25 ug/mL CHARLES Final Doxycycline Susceptible <=0.5 ug/mL CHARLES Final Inducible Clindamycin Resistance Neg NEG ug/mL CHARLES Final Oxacillin Resistant >=4 ug/mL CHARLES Final Trimethoprim-sulfamethoxazole Resistant >=320 ug/mL CHARLES Final Vancomycin Susceptible 1 ug/mL CHARLES Final CULTURE ANAEROBE [[id number]] (Normal) Collected: 07/26/24 1320 Lab Status: Preliminary result Specimen: Microbiology from Synovial Fluid Updated: 07/29/24 1330 Culture No anaerobic organisms isolated to date. CULTURE BLOOD [[id number]] (Abnormal) Collected: 07/25/24 2318 Lab Status: Final result Specimen: Blood Peripheral Updated: 07/28/24 1110 Culture Growth of Staphylococcus aureus methicillin-resistant (MRSA) Comment: Staphylococcus aureus methicillin-resistant (MRSA) detected by penicillin binding protein immunoassay. Contact precautions required. Conventional antibiotic susceptibility testing to follow. Gram Stain Gram-positive cocci in clusters Narrative: Methicillin-resistant Staphylococci (MRSA) are resistant to all currently available beta-lactam antibiotics with the exception of the newer cephalosporins with anti-MRSA activity. Contact precautionsrequired. Contact precautions required. Positive at 12 hours 7 minutes. Infectious disease consultation strongly recommended, where available. Refer to previously reported susceptibility testing, specimen number: [id number] CULTURE BLOOD [[id number]] (Abnormal) (Susceptibility) Collected: 07/25/242315 Lab Status: Final result Specimen: Blood Peripheral Updated: 07/28/24 1440 Culture Growth of Staphylococcus aureus methicillin-resistant (MRSA) Comment: Staphylococcus aureus methicillin-resistant (MRSA) detected by penicillin binding protein immunoassay. Contact precautions required. Conventional antibiotic susceptibility testing to follow. Gram Stain Gram-positive cocci in clusters Narrative: Methicillin-resistant Staphylococci (MRSA) are resistant to all currently available beta-lactam antibiotics with the exception of the newer cephalosporins with anti-MRSA activity. Contact precautionsrequired. Positive at 12 hours 50 minutes. Infectious disease consultation strongly recommended, where available. Susceptibility Staphylococcus aureus methicillin-resistant (MRSA) (1) Antibiotic Interpretation Microscan Method Status Oxacillin Resistant >=4 ug/mL CHARLES Final Vancomycin Susceptible 1 ug/mL CHARLES Final BCID PANEL [[id number]] (Abnormal) Collected: 07/25/242315 Lab Status: Final result Specimen: Blood Peripheral Updated: 07/26/24 1644 Staphylococcus aureus Detected MECA/C and MREJ (Methicillin-Resistance Gene) Detected Comment: Results indicate methicillin-resistant Staphylococcus aureus (MRSA). Methicillin resistance detected. Narrative: Blood Culture ID Panel performed by [employer] multiplex PCR. The Test panel includes: Gram Positive Bacteria: Enterococcus faecalis, Enterococcus faecium, Listeria monocytogenes, Staphylococcus (genus), Staphylococcus aureus, Staphylococcus epidermidis, Staphylococcus lugdunensis, Streptococcus (genus), Streptococcus agalactiae (Group B), Streptococcus pneumoniae, Streptococcus pyogenes (Group A). Gram Negative Bacteria: Acinetobacter baumannii complex, Bacteroides fragilis, Haemophilus influenzae, Neisseria meningitidis (encapsulated), Pseudomonas aeruginosa, Stenotrophomonas maltophilia, Enterobacterales (formerly Enterobacteriaceae family), Enterobacter cloacae complex, Escherichia coli, K lebsiella (formerly Enterobacter) aerogenes, Klebsiella oxytoca, Klebsiella pneumoniae group, Proteus (genus), Salmonella species, Serratia marcescens. YEAST: Larisa albicans, Larisa auris, Larisa glabrata, Larisa krusei, Larisa parapsilosis, Larisa tropicalis, Cryptococcus neoformans/gattii. Antimicrobial Resistance Genes: CTX-M (extended-spectrum beta-lactamase), IMP ([place] beta-lactamase), KPC (carbapenemase), mcr-1 (colistin resistance determinant) mecA/C (methicillin-resistance), mecA/C and MREJ (methicillin- resistance - MRSA), NDM ([place] ugiblam-trmp-dhcknqqbi), OXA-48-like ( oxacillinase beta-lactamase),Geo/B (vancomycin-resistance), VIM ([place] Intergrom-Encoded [place] beta-lactamase). Imaging & Studies: IR Central Line Insert Tunnel Result Date: 07/30/2024 IMPRESSION: Successful Left internal jugular tunneled central venous Trialysis catheter placement. > Interpreting Provider: Husam Palacios MD on 07/30/2024 5:19 PM MRI Cervical Spine Wwo Cont Result Date: 07/30/2024 IMPRESSION: 1. Normal MRI of the cervical spine. 2. An incompletely imaged T2/STIR hyperintense lesion in the apex of the left thorax/superior mediastinum measuring approximately 2.3 x 4.0 cm on sagittal T2 and STIR sequences, corresponds to a cluster of mildly enlarged lymph nodes seen on the chest CT dated 07/27/2024. > Interpreting Provider: Leeanna Mathew MD on 07/30/2024 11:[address] Foot Right W Contrast Result Date: 07/28/2024 IMPRESSION: Wound at the plantar aspect of the hindfoot overlying the calcaneal tuberosity. Changesin the underlying calcaneus compatible with sequela of osteomyelitis. 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, with long-term current use of insulin (HCC) (POA: Yes) Hypoalbuminemia (POA: Yes) Septic arthritis of shoulder, right (HCC) (POA: Yes) Pneumonia of both lungs due to infectious organism, unspecified part of lung (POA: Yes) Acute pain of right shoulder (POA: Yes) Sepsis due to methicillin resistant Staphylococcus aureus (MRSA) (HCC) (POA: Yes) Dyslipidemia (POA: Yes) Obesity, Class II, BMI 35-39.9 (POA: Yes) Hyponatremia (POA: Yes) Hyperkalemia (POA: Yes) Hyperphosphatemia (POA: Yes) Hypocalcemia (POA: Yes) Chronic ulcer of right heel (HCC) (POA: Unknown) Osteomyelitis of right foot (HCC) (POA: Yes) #MRSA bacteremia #Septic arthritis of right shoulder s/p I&D - TTE was negative for endocarditis, MATT preliminarily negative for vegetations - aspiration of right should grew MRSA - ID and ortho team on board - IV vancomycin - MRI cervical spine to evaluate for the septic arthritis - 2 sets of blood cultures every 24-48 hours until negative for > 72 hours on 2 consecutive days #Right foot osteomyelitis - osteomyelitis seen on CT of the foot - vascular surgery consulted; they recommended amputation for source control but patient refused. Surgical debridement not beneficial as per surgery team. - Wound care #ESRD on HD TTS - Nephrology on board; currently permacath was removed due to MRSA bacteremia - Will need two sets of negative blood cultures before permacath can be replaced - LIJ catheter inserted; will undergo dialysis today - Low K diet and fluid restriction - Strict I&O's, daily weights, avoid nephrotoxic medications - renal vitamins - If K>5, lokelma will be started #Anemia of chronic disease - transfuse if Hgb <7 #Type 2 DM - POC glucose TID with meals and at bedtime #HTN - continue home carvedilol and lisinopril #Diastolic dysfunction - echo 05/21/23 showed grade 2 diastolic dysfunction Code: Full Diet: Renal Electrolytes: Replete PRN PPx: heparin Access: PIV Dispo: pending medical clearance The above assessment and plan will be discussed with the attending. This note is not final until attested by attending physician. Roberto No MD Internal Medicine Resident [facility] 07/31/2024 1:09 PM Associated attestation - Geronimo Burleson MD - 07/31/2024 1:24 PM CDT I saw and examined Ms. Canales with the resident physician. I agree with the findings and care plan as documented by the resident physician. Nursing staff updated with changes to care plan. 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, with long-term current use of insulin (HCC) (POA: Yes) Hypoalbuminemia (POA: Yes) Septic arthritis of shoulder, right (HCC) (POA: Yes) Pneumonia of both lungs due to infectious organism, unspecified part of lung (POA: Yes) Acute pain of right shoulder (POA: Yes) Sepsis due to methicillin resistant Staphylococcus aureus (MRSA) (HCC) (POA: Yes) Dyslipidemia (POA: Yes) Obesity, Class II, BMI 35-39.9 (POA: Yes) Hyponatremia (POA: Yes) Hyperkalemia (POA: Yes) Hyperphosphatemia (POA: Yes) Hypocalcemia (POA: Yes) Chronic ulcer of right heel (HCC) (POA: Unknown) Osteomyelitis of right foot (HCC) (POA: Yes) Geronimo Burleson MD Hospitalist [employer] Super[employer] [facility] Signed: 07/31/2024 1:23 PM * Keisha Garner RN - 07/31/2024 10:55 AM CDT REPORT BEFORE DIALYSIS Diagnosis (BOBBY/CKF): ESRD Non-Renal Diagnosis:MRSA bacteremia Isolation:Contact Does patient have signs or symptoms of respiratory infection (fever, cough, shortness of breath): NO Allergies:No Known Allergies Code Status:Full Code Orientation Status: x 4 On telemetry/Rhythm: NSR Oxygen: 2 L Given any medications: SEE MAR B/P MEDS HELD Need for pain medications: YES SEE MAR Blood pressure issues: NO On any drips: HEPARIN Is patient diabetic: YES Any labs to draw: NO Any other procedures today: NO Any concerns about this patient: BLIND Any medications to be given with dialysis: epo / heparin Due date of next Central Line Dressing change: 07/31/24-08/07/24 Primary RN Nurse: ROSI DODD RN [id number] * Ritesh Butler, PharmD - 07/31/2024 9:48 AM CDT ACTIVE CONSULTS TO PHARMACY/DISEASE STATE MONITORING Pharmacy Consult: Vancomycin ASSESSMENT/PLAN Indication: documented Bacteremia with Goal Level: pre HD level 15-20 mcg/ml and Bone/joint of r shoulder with Goal Level: pre HD level 15-20 mcg/ml ID consulted/following: Yes Assessment: Day of treatment: 6 End of treatment date: to be determined Current dosing regimen: 500 mg,dosing post HD sessions Recent Labs Component Name 07/31/24 0553 07/30/24 0644 07/29/24 0624 07/28/24 0702 07/27/24 0501 07/26/24 0923 05/22/23 0521 05/21/23 0450 05/20/23 0918 05/17/23 2151 05/09/23 0357 05/08/23 0841 04/29/23 0338 04/28/23 0319 04/27/232018 CREATININE 9.33* 9.32* 8.24* 6.64* - - - 1.62* - - 1.83* - - 1.39* - BUN 50* 44* 35* 29* - - - 13 - - 17 - - 13 - VANCORNDM 17.1 - 17.0 - - 32.2 - - - - - - - - - VANCTROUGH - - - - - - - 15.5 - - 19.5 - - 34.6* - VANCOPEAK - - - - - - - - 20.1* - - 26.1 - - 46.6* - = values in this interval not displayed. Microbiology: Recent Labs Component Name 02/22/24 2359 MRSADPCR Detected* MRSA positive: Yes Other pertinent micro: n/a Renal: is on intermittent hemodialysis (iHD) with last session 07/27 and next planned 07/31 (today). Level(s): See chart above Random level on 07/31 at 0553 was 17.1 mcg/ml. This level was ~48 h after last vancomycin random. Last vancomycin random concentration was 17 on 07/29. HD was held that day since new line was being held until after blood cx cleared. Looking at the MAR, it looks like the 500 mg dose scheduled that daywas NOT given because it was documented as started at 1328 and stopped at 1330. This would makes sense as it is unlikely the patient is clearing much vancomycin due to IHD status and limited urine output documented. Patient is on iHD with expected clearance of 20-30% per iHD session, the level reported in chart above is expected to be within therapeutic range (15-20 mcg/ml) after next HD session with the administration of 500 mg post HD today. Pre-HD random is within goal range of 15-20. Plan Dosing: Will continue serial dosing based on scheduled dialysis sessions with next session expected to be on 08/03/24. Will order dose of 500 mg to be given on today at 1700. Will order subsequent doses of 500 mg to be TTHSA. Monitoring: Will order a vancomycin random level prior to iHD session on 08/05 at 0400 and adjust regimen if indicated. Continue to monitor patient???s renal function and cultures as needed. Continue pre-hd monitoring weekly unless change in HD schedule, the adjust random level timing. Ritesh Butler, PharmD 07/31/2024 9:16 AM [facility] Vancomycin Guideline SUBJECTIVE/OBJECTIVE Leeroy Canales is a 33 year old female. Height: 5' 7 (170.2 cm) Wt 112.9 kg (248 lb 12.8 oz) Body mass index is 38.69 kg/m??. Vancomycin Administrations from MAR (last 72 hours) Date/Time Action Medication Dose Rate 07/29/24 1328 $ New Bag/Syringe vancomycin (Vancocin) 500 mg in 0.9% NaCl IV 100 mL IVPB 500 mg 200 mL/hr * [facility] - 07/31/2024 7:25 AM CDT [facility] INTERNAL MEDICINE PROGRESS NOTE Patient: Leeroy Canales Sex: female Age: [age] year old Date of : 1990 Date of Admission: 07/25/2024 Date: 07/31/2024 LOS: 6 SUBJECTIVE Interval History: -NAEON, AFVSS, saturating on 2L NC -Pt reports pain currently managed, received Dilaudid x2 & oxy x1 ON -Pt denies fever, SOB, chest, N/V/D -R shoulder dressing c/d/I, R clavicular dressing c/d/I, R foot dressing c/d/I, hyperpigmentation and hyperpigmented lesions look worse today with some lesions up to below knee level -LIJ HD cath placed yesterday, no significant erythema, drainage noted at site -CBC s/f uptrending WBC (13.2<9.6), stable anemia (Hgb 8.6<9 & Hct28.5<29.5) & uptrending Pt 575<471 -RFP s/f worsening renal function, BUN 50<44 & Cr 9.33<9.32, K stable 4.7<4.7, stable low Alb 1.6<1.6, Phos stable 8.9<9, Mag WNL (2.2) -Pt receiving HD today -Most recent BC 07/29: x1 no growth, x1Gr+ cocci in clusters -RUE US: acute, non-occlusive DVT in RIJ & superficial thrombus in R cephalic -NORMA WNL (1.33 R leg, sufficient R toe P) -Echo MATT pending read, no vegetation Hospital Course: Leeroy Canales is a 33 yo F w PMHx of HTN, HLD, T2DM (05/2024 A1c 6.2), HFpEF, ESRD on HD T/T/S, Hx RUE DVT, chronic anemia, PVD s/p L AKA, blindness, and recent L shoulder septic arthritis 06/26 presenting for MRSA bacteremia with R shoulder septic arthritis and osteomyelitis now s/p I&D (06/26) & chronic R foot OM. Pt presented with R shoulder 10/10 throbbing pain with fever and cold sweats, reporting pain in R shoulder similar in character to prior L shoulder infection. Patient presented from rehab for LLE prosthesis. Pt admitted for further workup and infection control. Since admission, MRSA bacteremia confirmed with blood cultures and R shoulder wound culture MRSA positive with TTE negative for endocarditis, pending MATT to confirm. CT CAP showed R shoulder septic arthritis and OM as well as L shoulder fluid collection and bilateral pulmonary infiltrates. Pt underwent arthrotomy, I&D, and synvectomy per ortho for source control. ID following and pt on IV vanc . Nephrology following and removed dialysis catheter and holding HD amidst infection with low K diet and Lasix. OBJECTIVE Vital Signs: Vitals: 07/30/24 1231 07/30/24 1951 07/30/24 2322 07/31/24 0307 BP: 133/76 123/63 154/85 132/76 Pulse: 79 83 84 85 Resp: 20 16 16 Temp: 98 ??F (36.7 ??C) 98.9 ??F (37.2 ??C) 98.6 ??F (37 ??C) 98.5 ??F (36.9 ??C) SpO2: 99% 100% 98% 98% Weight: 112.9 kg (248 lb 12.8 oz) Height: Temp Min: 97.6 ??F (36.4 ??C) Max: 100.7 ??F (38.2 ??C), Pulse Min: 72 Max: 91, Resp Min: 10 Max: 25, BP Min: 95/60 Max: 154/85 Intake & Output: In: 475 [P.O.:475] Out: 0 Physical Exam: General: Black/ female in NAD; AAOx4; conversational; follows commands HEENT: NC/AT; EOMI; conjunctiva normal; anicteric sclera Neck: Supple; no carotid bruit Chest: CTAB; no wheezes, crackles or rhonchi Cardiovascular: RRR, no murmurs, palpable peripheral pulses bilaterally Abdomen: Soft; +BS; non-tender; non-distended; no hepatosplenomegaly Extremities: No edema appreciated; moves all four extremities; R arm in cast and sling without tenderness to palpation, drain in place with minimal serosanginous drainage; R foot dressing c/d/I without pain to palpation; hyperpigmentation of mid calf with focal hyperpigmented macules seen beyond rodríguez ssing Skin: Skin warm, dry Neurological: CN II-XII grossly intact Psych: Normal mood and affect Current Medications: Scheduled: 0.9% NaCl 3 mL Intracatheter q8h ammonium lactate Topical BID carvedilol 12.5 mg Oral BID WC epoetin 5,000 Units Intravenous DIALYSIS TUE, FRI, & FRI ferrous sulfate 325 mg Oral QDAY WITH BREAKFAST furosemide 40 mg Oral QDAY gabapentin 300 mg Oral MON, FRI AND FRI gadoterate meglumine Intravenous Contrast - Once heparin 100 units/mL 80 Units/kg Intravenous BOLUS FROM BAG ONCE heparin 1,000 Units Intracatheter Dialysis Once And heparin 500 Units Intracatheter every hour heparin 5,000 Units Subcutaneous q8h lisinopril 20 mg Oral QDAY renal vitamin 1 tablet Oral QDAY sevelamer carbonate 1,600 mg Oral TID WC sodium zirconium cyclosilicate 10 g Oral QDAY vancomycin (VANCOCIN) IV dose per pharmacy Does not apply DIRECTED Continuous: heparin, 0-40 Units/kg/hr PRN: SALINE LOCK, INSERT AND MAINTAIN AND 0.9% NaCl AND 0.9% NaCl acetaminophen dextrose IV for hypoglycemia OR dextrose IV for hypoglycemia OR glucagon glucose (Diabetic Use) gel heparin 100 units/mL heparin heparin HYDROmorphone oxyCODONE (immediate release) Significant Lab Results: Latest Reference Range & Units 07/30/24 06:44 07/31/24 05:53 WBC 4.0 - 10.7 x10E9/L 9.6 13.2 (H) RBC 3.90 - 5.20 x10E12/L 3.13 (L) 2.98 (L) Hemoglobin 11.9 - 15.8 g/dL 9.0 (L) 8.6 (L) Hematocrit 34.8 - 46.1 % 29.5 (L) 28.5 (L) MCV 80.0 - 98.0 fL 94.2 95.6 MCH 26.7 - 33.6 pg 28.8 28.9 MCHC 31.7 - 36.3 g/dL 30.5 (L) 30.2 (L) Platelet Count 150 - 420 x10E9/L 471 (H) 575 (H) RDW-CV 11.3 - 14.8 % 13.7 13.8 MPV 7.8 - 11.4 fL 9.1 8.9 Latest Reference Range & Units 07/30/24 06:44 07/31/24 05:53 Sodium 136 - 145 mmol/L 135 (L) 137 Potassium 3.5 - 4.5 mmol/L 4.7 (H) 4.7 (H) Chloride 98 - 107 mmol/L 104 102 CO2 22 - 29 mmol/L 21 (L) 22 Anion Gap 6 - 16 10 13 BUN 7 - 26 mg/dL 44 (H) 50 (H) Creatinine 0.56 - 0.96 mg/dL 9.32 (H) 9.33 (H) eGFR >=90 mL/min/1.73 m2 5 (L) 5 (L) Glucose 70 - 115 mg/dL 167 (H) 133 (H) Calcium 8.4 - 10.2 mg/dL 7.7 (L) 7.5 (L) Magnesium 1.6 - 2.6 mg/dL 2.2 2.2 Phosphorus 2.9 - 5.1 mg/dL 9.0 (H) 8.9 (H) BUN/Creatinine Ratio 7 - 23 5 (L) 5 (L) Albumin 3.4 - 5.0 g/dL 1.6 (L) 1.6 (L) Osmolality Calculated 275 - 295 mOsm/kg 295 299 (H) (L): Data is abnormally low (H): Data is abnormally high Microbiology: 07/26/24 Blood Culture: MRSA + 07/27/24 Synovial Culture: Rare MRSA 07/29/24 Blood Culture: S. aureus (prelim) 07/30/24 Blood Culture: pending Imaging & Studies: 07/25/24 CXR:FINDINGS/IMPRESSION: *Right internal jugular approach dialysis catheter terminates in the superior cavoatrial junction, unchanged. Mild bilateral interstitial opacities may represent mild interstitial edema and/or atypical infection. There is no confluent airspace consolidation. No pleural effusion or pneumothorax. Cardiomegaly is suggested on this portable AP projection exam, unchanged. Mediastinal contours are normal. The visible bony thorax is intact. 07/26/24 R Shoulder XR: IMPRESSION: Osseous erosions of the humeral head and scapula, 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 Findings are further characterized outside hospital CT from 07/25/2024 ([facility] Noacute fracture or dislocation. Partially imaged airspace opacity in the setting of the right lung. Recommend attention to dedicated chest radiograph. 07/27/24 CT CAP:Impression: 1.A 2.9 cm right subscapularis abscess with adjacent osteomyelitis of the right humeral head and septic arthritis. There is a surgical drain likely in the glenohumeral joint space. 2.An ill-defined fluid collection adjacent to the left humerus without a well-defined rim which may represent an early developing abscess versus phlegmon. 3.Cardiomegaly with pulmonary edema. 4.Dendriform pulmonary ossifications in the lung bases. 07/28/24 CT R Foot:IMPRESSION: Wound at the plantar aspect of the hindfoot overlying the calcaneal tuberosity. Changes in the underlying calcaneus compatible with sequela of osteomyelitis. 07/28/24 TTE:Summary * The left ventricle is normal in [...] high for endocarditis, would suggest transesophageal echocardiogram. 07/30/24 MRI Cervical Spine wwo Contrast:IMPRESSION: 1. Normal MRI of the cervical spine. 2. An incompletely imaged T2/STIR hyperintense lesion in the apex of the left thorax/superior mediastinum measuring approximately 2.3 x 4.0 cm on sagittal T2 and STIR sequences, corresponds to a cluster of mildly enlarged lymph nodes seen on the chest CT dated 07/27/2024. 07/30/24 NORMA: R 1.33, R digit 131 07/30/24 R Venous Duplex US: Findings suggest right upper extremity deep venous thrombosis involvinginternal jugular vein. Superficial thrombosis is detected in the right cephalic. ASSESSMENT & PLAN MRSA Bacteremia c/b R Shoulder Septic Arthritis & OM & R Foot OM -CT R Foot consistent with OM, CT CAP consistent with R humeral head OM and septic arthritis -I&D R shoulder 07/27 per ortho, synovial aspirate growing S. Aureus -TTE negative for endocarditis, MATT complete no vegetation seen -NORMA WNL with adequate R toe pressure -MRI Cervical Spine showed cluster of mildly enlarged LN's Plan: -ID following, appreciate recs -2 sets of BC q24-48h till negative >72hrs on 2 consecutive days -IV vancomycin per pharm -CBC qD -CMP, vanc trough at least weekly -ESR, CRP due on 08/01 -Ortho following, appreciate recs -Hemovac removed today, dressing change q48h -Vasc surgery consulted for R foot OM, recommend R AKA but currently no intervention per patient preference. -Wound care for R foot: Betadine soaked gauze to wound bed, cover with ABD and wrap with kerlix. Heel offloading boot at all times. Ammonium lactate from base of toes to knees daily to intact skin for dry skin. RIJ DVT --RUE US showing acute RIJ DVT Hep gtt for PTT 69-110, PTT qD Possible PNA -CT CAP showed bilateral pulmonary infiltrates -Currently covered on empiric Abx ESRD on HD T/T/S -Nephro consulted for HD management -RIJ permcatch removed 07/28, last HD 07/27 -Nephro placed trialysis line (07/30) for weekend HD -Pt receiving HD today -Need 2 sets of neg BC before permcatch can be replaced -Lokelma 10g qD x3days per nephro -Renvela 1600 TID per nephro -Lasix 40 IV qD -Continue renal multivitamin -VitD per nephro HFpEF -TTE 07/29 showed EF 55% with Grade II LV diastolic dysfunction and mild LAE -continue home carvedilol 12.5mg BID, lisinopril 20mg qD T2DM -not currently taking diabetes medication due to well-controlled -last A1c 05/25/24 6.2 -Accucheck TIDAC, CTM, BG ranging 103-239 X24H Chronic Anemia -Continue home iron 800mg TID Diabetic Neuropathy -Continue home gabapentin MWF Code: Full Diet: NPO for MATT Electrolytes: Replete PRN PPx: Heparin Access: R Shoulder Drain + PIV Dispo: Floor The above assessment and plan was discussed with the attending. This note is not final until attested by attending physician. Nadir Cox M3 - Internal Medicine [facility] 07/31/2024 7:25 AM Associated attestation - Geronimo Burleson MD - 07/31/2024 1:24 PM CDT This note is for educational purposes only and has not necessarily been verified. * Gia Chavira RN - 07/30/2024 10:19 PM CDT Problem: Pain/Discomfort Goal: Patient exhibits [...] in the flowsheet documentation) Outcome: Progressing Problem: Nutrient: Increased nutrient needs (specify) Goal: Total intake will meet estimated nutrient needs Outcome: Progressing Problem: Hemodynamic Status/Cardiac Output Goal: Patient has stable vital signs and fluid balance Outcome: Progressing Problem: Fluid and Electrolyte Imbalance Goal: Fluid and electrolyte balance are achieved/maintained Outcome: Progressing Problem: Infection Goal: Signs and symptoms of infections are decreased or avoided Outcome: Progressing Problem: Balance Goal: LTG - Patient will demonstrate Intervention to enhance balance for safe completion of daily activities Outcome: Progressing * Lorin Reynolds MD - 07/30/2024 2:33 PM CDT Images from the original note were not included. [facility] NEPHROLOGY PROGRESS NOTE Patient: Leeroy Canales Sex: female Age: [age] year old Date of : 1990 Date of Admission: 07/25/2024 Date: 07/30/2024 LOS: 5 SUBJECTIVE Interval History: - NAEON. Blood cultures 07/28 + 1/2 bottles. Blood cultures 07/29 + 1/2 bottles. Otherwise pain well controlled this morning- HDS and without additional complaints. Was asking about getting home HD setup rather than continuing to go to outpatient HD center. RUE DVT US w/ DVT in RIJ on prelim read K 4.7 and phos 9.0 this am. CO2 21 and wnl. BUN 44. Hg stable at 9.0. To undergo cervical spine MRItoday Hospital Course: Ms. Canales is a 33y/o female w/ PMH of DM2 (diagnosed at 17) c/b retinopathy and nephropathy, ESRD on HD TThS, HTN, HLD, RUE DVT, ACD, PVD c/b L AKA, HFpEF, prior L shoulder septic arthritis who presents for R shoulder pain subsequently diagnosed as septic arthritis. Upon admission to [facility] afebrile, HDS. Labs remarkable for BNP 380, K 4.7, CO2 18, Ca 8.3, P 6.5, Lactic wnl, WBC 13.0, Hg 9.5 (b ~10), ESR 120, CRP 28.3. Blood cultures 07/25 w/ MRSA. Ortho consulted due to concerns for septic arthritis- join aspiration w/ 219k nuc cells 97% Neutrophils diagnostic for septic arthritis. Fluid culture w/ MRSA. Started on Vancomycin. Underwent I&D w/ Ortho on 07/27. Subsequent CT CAP w/ subscapularis abscess w/ adjacent osteo and L humeral fluid collection abscess vs phlegmon. ID consulted given bacteremia- TTE w/ EF 55%, G2DD and no vegetations. CT R heel for chronic wound w/ evidence of osteo. Vascular consulted and recommended amputation- which patient refused. MATT and MRI C-spine to be completed. Nephro consulted for HD and given bacteremia completed one session of HD w/ subsequent line removal until blood cultures negative- 07/28 cultures+ 1/2 and 07/29 + 1/2. 07/30 cultures pending OBJECTIVE Vital Signs: Vitals: 07/29/24 1800 07/29/24 1942 07/30/24 0426 07/30/24 1231 BP: 138/93 137/81 121/70 133/76 Pulse: 79 72 72 79 Resp: 18 18 Temp: 98 ??F (36.7 ??C) 98.3 ??F (36.8 ??C) 98 ??F (36.7 ??C) SpO2: 98% 98% 99% Weight: Height: Temp Min: 97.6 ??F (36.4 ??C) Max: 100.7 ??F (38.2 ??C), Pulse Min: 72 Max: 91, Resp Min: 10 Max: 25, BP Min: 95/60 Max: 153/80 Intake & Output: In: 150 [P.O.:150] Out: 0 Physical Exam: Physical Exam Constitutional: General: She is not in acute distress. Appearance: She is not toxic-appearing or diaphoretic. HENT: Head: Normocephalic. Right Ear: External ear normal. Left Ear: External ear normal. Nose: Nose normal. Mouth/Throat: Mouth: Mucous membranes are moist. Pharynx: Oropharynx is clear. Eyes: Extraocular Movements: Extraocular movements intact. Conjunctiva/sclera: Conjunctivae normal. Pupils: Pupils are equal, round, and reactive to light. Cardiovascular: Rate and Rhythm: Normal rate and regular rhythm. Pulses: Normal pulses. Heart sounds: Normal heart sounds. No murmur heard. Pulmonary: Effort: Pulmonary effort is normal. No respiratory distress. Breath sounds: Normal breath sounds. No wheezing. Comments: On 2L NC Abdominal: General: Abdomen is flat. Bowel sounds are normal. There is no distension. Palpations: Abdomen is soft. Tenderness: There is no abdominal tenderness. Musculoskeletal: General: Signs of injury present. Right lower leg: Edema present. Comments: LLE AKA. RLE w/ chronic ulceration on heel and chronic ulcerative skin changes of RLE. RUE in sling with limited ROM Skin: General: Skin is warm and dry. Coloration: Skin is not jaundiced. Findings: No bruising or lesion. Neurological: General: No focal deficit present. Mental Status: She is alert and oriented to person, place, and time. Psychiatric: Mood and Affect: Mood normal. Current Medications: Scheduled: 0.9% NaCl 3 mL Intracatheter q8h ammonium lactate Topical BID carvedilol 12.5 mg Oral BID WC epoetin 5,000 Units Intravenous DIALYSIS FRI, FRI, & SAT ferrous sulfate 325 mg Oral QDAY WITH BREAKFAST furosemide 40 mg Oral QDAY gabapentin 300 mg Oral MON, WED AND FRI gadoterate meglumine Intravenous Contrast - Once heparin 5,000 Units Subcutaneous q8h lisinopril 20 mg Oral QDAY renal vitamin 1 tablet Oral QDAY sevelamer carbonate 1,600 mg Oral TID WC sodium zirconium cyclosilicate 10 g Oral QDAY vancomycin (VANCOCIN) IV dose per pharmacy Does not apply DIRECTED Continuous: PRN: SALINE LOCK, INSERT AND MAINTAIN AND 0.9% NaCl AND 0.9% NaCl acetaminophen dextrose IV for hypoglycemia OR dextrose IV for hypoglycemia OR glucagon glucose (Diabetic Use) gel heparin heparin HYDROmorphone oxyCODONE (immediate release) Significant Lab Results: Results for orders placed or performed during the hospital encounter of 07/25/24 (from the past 24 hour(s)) GLUCOSE - POINT OF CARE Result Value Ref Range Glucose WB/POC 137 (H) 70 - 115 mg/dL Specimen Type Cap Fingerstick CBC W/O DIFFERENTIAL Result Value Ref Range WBC 9.6 4.0 - 10.7 x10E9/L RBC Count 3.13 (L) 3.90 - 5.20 x10E12/L Hemoglobin 9.0 (L) 11.9 - 15.8 g/dL Hematocrit 29.5 (L) 34.8 - 46.1 % MCV 94.2 80.0 - 98.0 fL MCH 28.8 26.7 - 33.6 pg MCHC 30.5 (L) 31.7 - 36.3 g/dL RDW-CV 13.7 11.3 - 14.8 % Platelet Count 471 (H) 150 - 420 x10E9/L MPV 9.1 7.8 - 11.4 fL RENAL FUNCTION PANEL Result Value Ref Range BUN 44 (H) 7 - 26 mg/dL Creatinine 9.32 (H) 0.56 - 0.96 mg/dL Sodium 135 (L) 136 - 145 mmol/L Potassium 4.7 (H) 3.5 - 4.5 mmol/L Chloride 104 98 - 107 mmol/L CO2 21 (L) 22 - 29 mmol/L Glucose 167 (H) 70 - 115 mg/dL Albumin 1.6 (L) 3.4 - 5.0 g/dL Calcium 7.7 (L) 8.4 - 10.2 mg/dL Phosphorus 9.0 (H) 2.9 - 5.1 mg/dL Anion Gap 10 6 - 16 BUN/Creatinine Ratio 5 (L) 7 - 23 Osmolality Calculated 295 275 - 295 mOsm/kg eGFR by CKD-EPI 5 (L) >=90 mL/min/1.73 m2 MAGNESIUM BLOOD Result Value Ref Range Magnesium 2.2 1.6 - 2.6 mg/dL Microbiology: Microbiology Results (Displays last 21 days for this encounter ONLY) Procedure Component Value - Date/Time CULTURE BLOOD [[id number]] Collected: 07/30/24 1213 Lab Status: In process Specimen: Blood Peripheral Updated: 07/30/24 1235 CULTURE BLOOD [[id number]] Collected: 07/30/24 1203 Lab Status: In process Specimen: Blood Peripheral Updated: 07/30/24 1235 CULTURE BLOOD [[id number]] Collected: 07/29/24 1636 Lab Status: In process Specimen: Blood Peripheral Updated: 07/29/24 1639 CULTURE BLOOD [[id number]] (Abnormal) Collected: 07/29/24 1117 Lab Status: Preliminary result Specimen: Blood Peripheral Updated: 07/30/24 1045 Gram Stain Gram-positive cocci in clusters Narrative: Positive at 19 hours and 18 minutes CULTURE BLOOD [[id number]] (Abnormal) Collected: 07/28/24 2048 Lab Status: Preliminary result Specimen: Blood Peripheral Updated: 07/30/24 1025 Gram Stain Gram-positive cocci in clusters Narrative: Positive at 26 Hours 12 Minutes CULTURE BLOOD [[id number]] (Normal) Collected: 07/28/24 1753 Lab Status: Preliminary result Specimen: Blood Peripheral Updated: 07/29/24 2331 Culture No growth 24 hours CULTURE ANAEROBE [[id number]] (Normal) Collected: 07/27/24 0911 Lab Status: Preliminary result Specimen: Microbiology from Synovial Fluid Updated: 07/30/24 1357 Culture No anaerobic organisms isolated to date. CULTURE FUNGUS OTHER+FUNGUS SMEAR [[id number]] (Normal) Collected: 07/27/24 0911 Lab Status: Preliminary result Specimen: Microbiology from Synovial Fluid Updated: 07/29/24 0623 Culture No fungus isolated Fungus Stain No yeast or hyphae seen CULTURE WOUND+GRAM STAIN [[id number]] (Abnormal) (Susceptibility) Collected: 07/27/24 0911 Lab Status: Final result Specimen: Microbiology from Shoulder Updated: 07/30/24 0429 Culture Rare Staphylococcus aureus methicillin-resistant (MRSA) Comment: Staphylococcus aureus methicillin-resistant (MRSA) detected by penicillin binding protein immunoassay. Contact precautions required. Conventional antibiotic susceptibility testing to follow. Gram Stain Light Polymorphonuclear cells No organisms seen Narrative: Methicillin-resistant Staphylococci (MRSA) are resistant to all currently available beta-lactam antibiotics with the exception of the newer cephalosporins with anti-MRSA activity. Contact precautionsrequired. Susceptibility Staphylococcus aureus methicillin-resistant (MRSA) (1) Antibiotic Interpretation Microscan Method Status Clindamycin Susceptible 0.25 ug/mL CHARLES Final Doxycycline Susceptible <=0.5 ug/mL CHARLES Final Inducible Clindamycin Resistance Neg NEG ug/mL CHARLES Final Oxacillin Resistant >=4 ug/mL CHARLES Final Trimethoprim-sulfamethoxazole Resistant >=320 ug/mL CHARLES Final Vancomycin Susceptible 1 ug/mL CHARLES Final CULTURE BLOOD [[id number]] (Abnormal) Collected: 07/26/24 2308 Lab Status: Final result Specimen: Blood Peripheral Updated: 07/29/24 1150 Culture Growth of Staphylococcus aureus methicillin-resistant (MRSA) Comment: Staphylococcus aureus methicillin-resistant (MRSA) detected by penicillin binding protein immunoassay. Contact precautions required. Conventional antibiotic susceptibility testing to follow. Gram Stain Gram-positive cocci in clusters Narrative: Methicillin-resistant Staphylococci (MRSA) are resistant to all currently available beta-lactam antibiotics with the exception of the newer cephalosporins with anti-MRSA activity. Contact precautionsrequired. Positive at 18 hours 59 minutes. Refer to previously reported susceptibility testing, specimen number: [id number] Infectious disease consultation strongly recommended, where available. CULTURE BLOOD [[id number]] (Abnormal) Collected: 07/26/24 2252 Lab Status: Final result Specimen: Blood Peripheral Updated: 07/29/24 0959 Culture Growth of Staphylococcus aureus methicillin-resistant (MRSA) Comment: Staphylococcus aureus methicillin-resistant (MRSA) detected by penicillin binding protein immunoassay. Contact precautions required. Conventional antibiotic susceptibility testing to follow. Gram Stain Gram-positive cocci in clusters Narrative: Methicillin-resistant Staphylococci (MRSA) are resistant to all currently available beta-lactam antibiotics with the exception of the newer cephalosporins with anti-MRSA activity. Contact precautionsrequired. Positive at 15 hours 11 minutes. Refer to previously reported susceptibility testing, specimen number: [id number] Infectious disease consultation strongly recommended, where available. CULTURE FLUID+GRAM STAIN [[id number]] (Abnormal) (Susceptibility) Collected: 07/26/24 1320 Lab Status: Final result Specimen: Other from Synovial Fluid Updated: 07/30/24 0333 Culture Heavy Staphylococcus aureus methicillin-resistant (MRSA) Gram Stain Heavy Polymorphonuclear cells Light Gram-positive cocci Narrative: Methicillin-resistant Staphylococci (MRSA) are resistant to all currently available beta-lactam antibiotics with the exception of the newer cephalosporins with anti-MRSA activity. Contact precautionsrequired. Susceptibility Staphylococcus aureus methicillin-resistant (MRSA) (1) Antibiotic Interpretation Microscan Method Status Clindamycin Susceptible 0.25 ug/mL CHARLES Final Doxycycline Susceptible <=0.5 ug/mL CHARLES Final Inducible Clindamycin Resistance Neg NEG ug/mL CHARLES Final Oxacillin Resistant >=4 ug/mL CHARLES Final Trimethoprim-sulfamethoxazole Resistant >=320 ug/mL CHARLES Final Vancomycin Susceptible 1 ug/mL CHARLES Final CULTURE ANAEROBE [[id number]] (Normal) Collected: 07/26/24 1320 Lab Status: Preliminary result Specimen: Microbiology from Synovial Fluid Updated: 07/29/24 1330 Culture No anaerobic organisms isolated to date. CULTURE BLOOD [[id number]] (Abnormal) Collected: 07/25/24 2318 Lab Status: Final result Specimen: Blood Peripheral Updated: 07/28/24 1110 Culture Growth of Staphylococcus aureus methicillin-resistant (MRSA) Comment: Staphylococcus aureus methicillin-resistant (MRSA) detected by penicillin binding protein immunoassay. Contact precautions required. Conventional antibiotic susceptibility testing to follow. Gram Stain Gram-positive cocci in clusters Narrative: Methicillin-resistant Staphylococci (MRSA) are resistant to all currently available beta-lactam antibiotics with the exception of the newer cephalosporins with anti-MRSA activity. Contact precautionsrequired. Contact precautions required. Positive at 12 hours 7 minutes. Infectious disease consultation strongly recommended, where available. Refer to previously reported susceptibility testing, specimen number: [id number] CULTURE BLOOD [[id number]] (Abnormal) (Susceptibility) Collected: 07/25/24 2316 Lab Status: Final result Specimen: Blood Peripheral Updated: 07/28/24 1440 Culture Growth of Staphylococcus aureus methicillin-resistant (MRSA) Comment: Staphylococcus aureus methicillin-resistant (MRSA) detected by penicillin binding protein immunoassay. Contact precautions required. Conventional antibiotic susceptibility testing to follow. Gram Stain Gram-positive cocci in clusters Narrative: Methicillin-resistant Staphylococci (MRSA) are resistant to all currently available beta-lactam antibiotics with the exception of the newer cephalosporins with anti-MRSA activity. Contact precautionsrequired. Positive at 12 hours 50 minutes. Infectious disease consultation strongly recommended, where available. Susceptibility Staphylococcus aureus methicillin-resistant (MRSA) (1) Antibiotic Interpretation Microscan Method Status Oxacillin Resistant >=4 ug/mL CHARLES Final Vancomycin Susceptible 1 ug/mL CHARLES Final BCID PANEL [[id number]] (Abnormal) Collected: 07/25/24 2316 Lab Status: Final result Specimen: Blood Peripheral Updated: 07/26/24 1644 Staphylococcus aureus Detected MECA/C and MREJ (Methicillin-Resistance Gene) Detected Comment: Results indicate methicillin-resistant Staphylococcus aureus (MRSA). Methicillin resistance detected. Narrative: Blood Culture ID Panel performed by [employer] multiplex PCR. The Test panel includes: Gram Positive Bacteria: Enterococcus faecalis, Enterococcus faecium, Listeria monocytogenes, Staphylococcus (genus), Staphylococcus aureus, Staphylococcus epidermidis, Staphylococcus lugdunensis, Streptococcus (genus), Streptococcus agalactiae (Group B), Streptococcus pneumoniae, Streptococcus pyogenes (Group A). Gram Negative Bacteria: Acinetobacter baumannii complex, Bacteroides fragilis, Haemophilus influenzae, Neisseria meningitidis (encapsulated), Pseudomonas aeruginosa, Stenotrophomonas maltophilia, Enterobacterales (formerly Enterobacteriaceae family), Enterobacter cloacae complex, Escherichia coli, K lebsiella (formerly Enterobacter) aerogenes, Klebsiella oxytoca, Klebsiella pneumoniae group, Proteus (genus), Salmonella species, Serratia marcescens. YEAST: Larisa albicans, Larisa auris, Larisa glabrata, Larisa krusei, Larisa parapsilosis, Larisa tropicalis, Cryptococcus neoformans/gattii. Antimicrobial Resistance Genes: CTX-M (extended-spectrum beta-lactamase), IMP ([place] beta-lactamase), KPC (carbapenemase), mcr-1 (colistin resistance determinant) mecA/C (methicillin-resistance), mecA/C and MREJ (methicillin- resistance - MRSA), NDM ([place] wosfgbb-bjgw-ynwbsqydv), OXA-48-like ( oxacillinase beta-lactamase),Geo/B (vancomycin-resistance), VIM ([place] Intergrom-Encoded [place] beta-lactamase). Imaging & Studies: CT Chest Abdomen Pelvis W Cont Result Date: 07/27/2024 Impression: 1.A 2.9 cm right subscapularis abscess with adjacent osteomyelitis of the right humeralhead and septic arthritis. There is a surgical drain likely in the glenohumeral joint space. 2.An ill-defined fluid collection adjacent to the left humerus without a well-defined rim which may represent an early developing abscess versus phlegmon. 3.Cardiomegaly with pulmonary edema. 4.Dendriform pulmonary ossifications in the lung bases. > Dictated by Steve Haney DO (energy operations vice president). I, Arthur Avery MD have personally reviewed and interpreted this examination/study. > Interpreting Provider: Arthur Avery MD on 07/27/2024 5:19 PM XR Shoulder Right 2Vw or More Result Date: 07/26/2024 IMPRESSION: Osseous erosions of the humeral head and scapula, 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 Findings are further characterized outside hospital CT from 07/25/2024 ([facility] No acute fracture or dislocation. Partially imaged airspace opacity in the setting of the right lung. Recommend attention to dedicated chest radiograph. 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, with long-term current use of insulin ([facility]) (POA: Yes) Hypoalbuminemia (POA: Yes) Septic arthritis of shoulder, right ([facility] [facility]) (POA: Yes) Pneumonia of both lungs due to infectious organism, unspecified part of lung (POA: Yes) Acute pain of right shoulder (POA: Yes) Sepsis due to methicillin resistant Staphylococcus aureus (MRSA) ([facility]) (POA: Yes) Dyslipidemia (POA: Yes) Obesity, Class II, BMI 35-39.9 (POA: Yes) Hyponatremia (POA: Yes) Hyperkalemia (POA: Yes) Hyperphosphatemia (POA: Yes) Hypocalcemia (POA: Yes) Chronic ulcer of right heel (HCC) (POA: Unknown) Osteomyelitis of right foot (HCC) (POA: Yes) Ms. Canales is a 33y/o female w/ PMH of DM2 (diagnosed at 17) c/b retinopathy and nephropathy, ESRD on HD TThS, HTN, HLD, RUE DVT, ACD, PVD c/b L AKA, HFpEF, prior L shoulder septic arthritis who presents for R shoulder pain subsequently diagnosed as septic arthritis. #ESRD on HD TThS - Volume status: Euvolemic - Lytes: K 4.7 - Acid/Base: Bicarb 21- stable - Access; No current Access - RIJ removed 07/28 due to bacteremia - RUE DVT US prelim w/ RIJ DVT - Last HD 07/27 - Will place on placement of L sided Juan catheter for HD needs over weekend since blood cultures are still positive. - Lokelma 10g QD x 3 days - Recommend Lasix 40mg daily while HD is held - Low K diet and fluid restriction while HD is being held - Strict I&O's, daily weights, avoid nephrotoxic medications #BMD - Ca 7.7 - Phos 9.0 (high) - PTH 93 and VitD 12.3 (02/24) - Increase Renvela 1600mg TID - Recommend VitD Supplementation #ACD - Hg 9.0 (baseline ~10) - NEELAM w/ HD - CTM and transfuse for Hg < 7. #DM2 c/b retinopathy #HTN - Management per primary #L Shoulder Osteomyelitis #L Shoulder Septic Arthritis #MRSA Bacteremia - On Vancomycin - ID following - TTE w/ EF 55%, G2DD, and no vegetations - MATT pending - CT CAP w/ w/ subscapularis abscess w/ adjacent osteo and L humeral fluid collection abscess vs phlegmon. - CT R foot w/ evidence of osteomyelitis- Vascular consulted and recommended amputation. Patient refused - MRI C-spine pending - Treatment per primary - RIJ Permcath removed 07/28 - Repeat cultures 07/28 + 1/2, 07/29 cultures + 1/2 and 07/30 pending Remainder of care per primary The above assessment and plan will be discussed with the attending. This note is not final until attested by attending physician. Lorin Reynolds MD Internal Medicine Resident [facility] 07/30/2024 2:33 PM Associated attestation - Aneta Lopez MD - 07/30/2024 11:28 PM CDT I have seen and examined the patient with house-staff on rounds. I agree with the house-staff note and plan as documented below Aneta Lopez MD * Roxanna Roth PA-C - 07/30/2024 1:29 PM CDT Images from the original note were not included. [facility] Infectious Diseases Inpatient Progress Note Patient Name: Leeroy Canales 1990 Room: [facility] [place] Date of Admission: 07/25/2024 Date of Service: 07/30/2024 Primary Care Physician: CHERISE MARCELO PA-C Attending Physician: Geronimo Burleson,* Reason for Infectious Disease Consultation Recurrent septic arthritis IMPRESSION MRSA bacteremia Right shoulder pyogenic arthritis Right shoulder osteomyelitis Pneumonia (treated) Cervical spine pain Right heel ulcer, chronic Osteomyelitis right calcaneous ESRD on HD RECOMMENDATIONS - Continue with IV vancomycin - Please continue to obtain 2 sets of blood cultures every 24-48 hours until negative for > 72 hours on 2 consecutive days - Follow results MRI cervical spine - Recommend MATT with recurrent septic arthritis shoulder - CT Chest / abd / pelvis with 2.9 cm abscess in right subscapularis, imaged after operative I&D. Recommend evaluation by IR vs. Ortho vs. Thoracic surgery for source control / aspiration. - Please obtain CBC w diff, CMP, ESR, CRP, vancomycin trough at least weekly while on IV antibiotics. Thank you for allowing us to participate in the care of this patient. ID will continue to follow. Please call the Ortho ID pager [phone] with any questions. Updated care plan discussed with Dr. Burleson. DISCUSSION Leeroy Canales is a 33 year old female with PMH of T2DM, ESRD on HD TTS, HTN, HLD,hx of RUE DVT, anemia, PVD, blindness, s/p L AKA, HFpEF, prior hx of infectious arthritis presenting as OSH transfer from [facility] for 3 day history of right shoulder pain. Recurrent MRSA bacteremia - 07/25 & 07/26: Bcx 2/2 MRSA - 07/28 & 07/29: Bcx 1/2 GPCs, pending speciation - 07/30: Bcx in process - Potential Sources: Dialysis catheter, shoulder septic arthritis, chronic right heel ulcer, DVT RUE - Source control: - 07/28: Right IJ tunneled dialysis catheter removed - 07/27 s/p OR I&D right shoulder - Right subscapularis abscess - Consult IR vs. Ortho vs. Thoracic surgery - Vascular intervention right foot osteomyelitis - patient declines - Evaluation: - TTE negative for vegetations, Obtain MATT - Follow Results MRI cervical spine - Follow results RUE venous doppler - On IV vancomycin Right shoulder pyogenic arthritis Right shoulder osteomyelitis - OSH CT right shoulder: prominent erosive changes of the right humeral head and greater tuberosity, as well as the right coracoid process, prominent thickening of the shoulder capsule, right shoulder effusion - 07/25: OSH right shoulder aspiration, gram stain with GPC in clusters, cultures in process - 07/26: X-rays right shoulder concerning for osteomyelitis. - 07/26: Shoulder aspiration: Fluid with 219,660 nucleated cells, 97% neutrophils. Path - Acute inflammatory infiltrate, Intracellular microorganisms, minimal blood contamination. Cultures with MRSA - 07/27: OR for right shoulder I&D. Multiple purulent pockets. Cultures with MRSA. - 07/27: CT Chest abd pelvis with 2.9 cm subscapularis abscess with adjacent osteomyelitis of right humeral head and septic arthritis. Discuss source control with IR vs. Ortho vs. Thoracic surgery - On IV vancomycin Pneumonia (treated) - OSH CT CAP with bilateral pulmonary infiltrates suggesting bilateral pneumonia, cardiomegaly. - Repeat CT CAP 07/27 shows pulmonary edema. - Previously finished IV azithromycin. Now On IV vancomycin. Cervical spine pain - likely referred from right shoulder, however, Recommend MRI CSpine wwo contrast for evaluation ofosteomyelitis in the setting of MRSA bacteremia Chronic right heel ulcer Osteomyelitis right calcaneous - Tunnels to bone - appreciate vascular consult ESRD on HD - Tunneled dialysis catheter removed 07/28 CDC Screening - Previous HIV and hepatitis C screening negative QTC: 452 (05/17/2024) Renal Function: Estimated Creatinine Clearance: 11.4 mL/min (A) (by C-G formula based on SCr of 9.32 mg/dL (H)). Hardware: None Thank you for allowing us to participate in the care of this patient. We will continue to follow and monitor with you closely. Please call the [place] Therapist ID pager [phone] with any questions. I spent 35 mins in the care of this patient to include chart review, coordination of care, and patient interview / examination / education independent from the attending physician. I spent an additional 10 mins in discussion with attending physician Dr. Ramirez regarding patient case. Patient seen and examined, case discussed with ID attending. JESSICA Sorensen, CRISTIANOC Division of Infectious Diseases Contact: [employer] Secure Chat preferred ID Clinic ID Clinic Subjective History of Present Illness: Leeroy Canales is a 33 year old female with PMH of T2DM, ESRD on HD TTS, HTN, HLD, hx of RUE DVT, anemia, PVD, blindness, s/p L AKA, HFpEF, prior hx of infectious arthritis presenting as OSH transfer from [facility] for 3 day history of right shoulder pain. Patient reports that her neck started hurting about 1 week ago and her shoulder pain started 3 days prior to presenting to [facility]. Patient states that she felt right shoulder pain upon waking up one morning and it has progressed to become a 10/10, deep throbbing pain that she also feels in her upper arm. Pain is more severe on movement. Denies any trauma to the area. Also reports that for about two weeks, she has been experiencing cold sweats and fevers. Patient comes from a nursing facility ([facility]) where she was receiving rehab for prosthetic for LLE. At Loc (OSH) labs revealed WBC 12.9k, Hb 10.3, plt 255; ESR 90, CRP 29.4; CMP remarkable for Na 131. Synovial fluid of R shoulder showing 92% neutrophils. Azithro, cefepime, vancomycin started at OSH. OSH imaging notable for the following: Shoulder x-ray showing mild osteoarthritis of acromioclavicular joint. Shoulder CT showing prominent erosive changes of the right humeral head and greater tuberosity, as well as the right coracoid process, prominent thickening of the shoulder capsule, right shoulder effusion CT chest abdomen pelvis showing bilateral pulmonary infiltrates suggesting bilateral pneumonia, cardiomegaly . Patient transferred to [facility] on 07/25/2024 for further evaluation of bilateral pneumonia and Right shoulder pyogenic arthritis. ID consulted for antibiotic management in the setting of recurrent pyogenic right shoulder. Patient reports tunneled dialysis line was placed in February 2024, has never been removed or replaced. Previous [facility] Hx: 04/26/2023 -05/09/2023: Presented for for foot osteomyelitis. Discharged with IV vancomycin, IV cefepime, PO flagyl. Discharge complicated by RUE DVT brachial vein causing readmission. Patient completedtherapy with doxycycline 100 mg BID, ciprofloxacin 750 mg BID, and flagyl 500 mg TID. EOT 06/07/2023. 02/22/2024 - 03/02/2024: Presented for MRSA bacteremia, left pectoralis abscess with concerns for osteomyelitis of left shoulder. Abscess near left shoulder aspiration by IR with 11 ml Pus, gram stain no organisms and culture no growth. Right shoulder aspirated with 4300 WBC (not concerning for septic arthritis per previous ID note. Patient treated with 6 weeks of antibiotics with EOT 04/07/2024 - was discharged on vancomycin and at some point transitioned to PO linezolid to complete treatment. 05/23/2024 - 06/03/2024: Presented to [facility] with left shoulder pain, found to have left shoulder septicbursitis, ?osteomyelitis. During this admission, blood cultures negative. OSH aspiration culture negative. [facility] shoulder aspiration culture negative. Synovial fluid with 6k nucleated cells, 83% neutrophils. MRI left shoulder consistent with septic bursitis but no osteomyelitis. Evaluated by rheumatology with no signs of inflammatory arthropathy. Treated with 4 weeks IV vancomycin, IV cefepime, EOT 06/21/2024. Hospital Course: 07/25: Bcx (2/2) +MRSA 07/26: Bcx (2/2) + GPCs, pending speciation 07/26: Right shoulder aspiration. 219,660 nucleated cells, 97% neutrophils. Path - Acute inflammatory infiltrate, Intracellular microorganisms, minimal blood contamination. GPCs on gram stain. Cultures in progress. 07/27: OR with ortho for I&D of right shoulder. Per op note: copious purulence noted in subdeltoid region, 85-90 mL evaluated from joint. Walled-off purulence identified from posterior aspect of humeral head as well as infraglenoid pouch. Purulence up and down bicipital tendon found. Cultures inprogress. 07/27: CT CAP - Pulmonary edema, right subscapularis abscess (2.9 cm) 07/28: TTE with no vegetations, obtain MATT if concerns for endocarditis 07/28: Vascular surgery recommends CT right foot w contrast for evaluation of right foot ulcer Interval history: Today 07/30/2024: MRI cervical spine and RUE venous duplex completed this AM pending reads. Going for MATT today. Feels more like myself. No fevers, chills, nausea, vomiting, diarrhea. Tolerating antibiotics. WBC 9.6. CMP stable. 07/28/2024: Continues to feel feverish and chilled. No nausea, vomiting, diarrhea, rashes, itching, shortness of breath, cough. Cervical pain almost resolved. Right shoulder pain present but slightly improved from yesterday. 07/26 Bcx with GPCs, pending speciation. WBC 11.0. Tolerating IV vancomycin 07/27/2024: Patient in HD. Continues to have fevers and chills. No nausea / vomiting / diarrhea / rashes / itching. Continues to have severe pain in right shoulder. Has some pain in the neck. No otherjoint pain. No shortness of breath / cough / difficulty breathing. Currently on IV vancomycin, IV cefepime, IV azithromycin. CT CAP w contrast completed today pending read. WBC 11.7, CRP 28.3, ESR 120. Creatinine 9.99, GFR 5. Medical History Past Medical History: Diagnosis Date [...] use: Denies history Marital status: Single Children: No Living situation: Resides at [place], [place] Travel Hx: no international travel Sick contacts: denies recent contacts HIV status: Negative 02/2024 Hepatitis Status: Negative 05/2024 Prosthetic / Implant History: None Immunizations: Immunization [...] Review of Systems Review of Systems Constitutional: Positive for chills, fever and malaise/fatigue. HENT: Negative. Eyes: Blind Respiratory: Negative. Cardiovascular: Negative. Gastrointestinal: Negative. Genitourinary: Negative. Musculoskeletal: Right shoulder pain, neck pain Skin: Negative for itching and rash. Chronic right heel ulcer Neurological: Negative. Endo/Heme/Allergies: Negative. Psychiatric/Behavioral: Negative. Allergies No Known Allergies Antimicrobial History Current Antibiotics IV vancomycin (07/26 - ) Prior Antibiotics At [facility] IV cefazolin (07/27) - intra-op IV cefepime (07/26 - 07/27) IV azithromycin (07/26 - 07/27 ) Prior Antibiotics at OSH Home Medications Prior to Admission medications Medication Sig Start Date End Date Taking? Authorizing Provider acetaminophen (Tylenol) 500 MG tablet Take 1 (one) tablet by mouth every 4 hours Maximum allowable Acetaminophen amount = 4 Grams (4000 mg) / 24 hours. 03/02/24 Yes Martine Morrissey MD Alcohol Swabs (Alcohol Prep) 70 % USE ONE SWAB TO CLEAN SKIN FOUR TIMES DAILY BEFORE TESTING 12/12/22Amanda Georges MD amLODIPine (Norvasc) 10 MG tablet Take 1 (one) tablet by mouth once daily 02/28/24 Yes Geronimo Burleson MD bisacodyl (Dulcolax) 10 MG suppository Insert 1 (one) suppository into the rectum once daily as needed for Constipation 02/28/24 Geronimo Burleson MD blood glucose (OneTouch Verio) test strip USE ONE STRIP TO TEST BLOOD SUGAR FOUR TIMES DAILY 12/12/22Yes Amanda Georges MD Blood Glucose Monitoring Suppl (OneTouch Verio Reflect) w/Device KIT Use 1 kit 4 times daily USE METER TO CHECK BLOOD GLUCOSE FOUR TIMES DAILY Reasons: CALL [facility] WHEN DELIVERING X4364 12/12/22 Amanda Georges MD carvedilol (Coreg) 12.5 MG tablet Take 1 (one) tablet by mouth 2 times daily with morning and evening meal 12/12/22 Yes Rosi Menard V., [employer] FeroSul 325 (65 Fe) MG tablet Take 1 (one) tablet by mouth daily with breakfast 08/08/22 Yes Rebel Garcia MD furosemide (Lasix) 40 MG tablet Take 1 (one) tablet by mouth every Friday, Friday & Friday05/23/23 Yes Willard Estrella MD gabapentin (Neurontin) 100 MG capsule Take 1 (one) capsule by mouth 3 times daily 12/27/22 Yes Rebel Garcia MD insulin lispro (HumaLOG;ADMelog) 100 UNIT/ML pen Inject 0 (zero) Units to 6 (six) Units subcutaneously 3 times daily with meals Patient not taking: Reported on 07/26/2024 05/09/23 Joe Vargas MD Lancets (ONETOUCH DELICA PLUS 33G EXTRA FINE LANCET) USE ONE LANCET TO PRICK FINGER FOUR TIMES DAILY FOR BLOOD GLUCOSE TESTING 12/12/22 Amanda Georges MD lisinopril (Prinivil; Zestril) 20 MG tablet Take 1 (one) tablet by mouth once daily 02/29/24 Yes Geronimo Burleson MD melatonin 3 MG tablet Take 1 (one) tablet by mouth nightly as needed for Insomnia 05/09/23 Yes Joe Vargas MD nystatin (Mycostatin) 448838 UNIT/GM powder Apply to affected area 3 times daily 12/12/22 Yes Rosi Menard V., [employer] oxyCODONE, immediate release, (Roxicodone) 10 MG tablet Take 1 (one) tablet by mouth every 4 hours as needed 06/03/24 Yes Franck Hennessy MD polyethylene glycol 3350 (Miralax) 17 g packet Take 17 (seventeen) g by mouth once daily Patient not taking: Reported on 05/23/2024 02/28/24 Geronimo Burleson MD renal vitamin (Dialyvite) tablet Take 1 (one) tablet by mouth once daily 02/28/24 Geronimo Burleson MD senna (Senokot) 8.6 MG tablet Take 1 (one) tablet by mouth once daily 02/28/24 Geronimo Burleson MD sevelamer carbonate (Renvela) 800 MG Take 1 (one) tablet by mouth 3 times daily with meals 02/28/24 Geronimo Burleson MD Objective Vitals BP 133/76 Pulse 79 Temp 98 ??F (36.7 ??C) (Oral) Resp 18 Ht 1.702 m (5' 7 ) Wt 113.5 kg (250 lb 3.2 oz) SpO2 99% Temp (24hrs), Av.1 ??F (36.7 ??C), Min:98 ??F (36.7 ??C), Max:98.3 ??F (36.8 ??C) Physical Exam PHYSICAL EXAM General: Alert, no distress, not toxic appearing, laying in bed, appears comfortable. Head: Normocephalic, atraumatic EENT: Blind, anicteric sclera. Nose Normal. No thrush. Dentition Fair. Neck: Supple Chest wall: No tenderness or deformity, Right tunneled IJ removed. Lungs: Clear to auscultation bilaterally, no wheezes, rales, rhonchi. Heart: RRR, S1, S2 normal, no murmur, gallops, or rubs. Abdomen: Soft, non-distended, non-tender, no organomegaly or masses. +BS Extremities: Left AKA. Right lower leg with edema and chronic venous changes, right heel ulcer present. Right shoulder with post surgical dressing, drain with bloody output. Skin: No rashes. Neurologic: Alert and oriented x 3, moving all extremities Psychiatry: Appropriate mood/affect Lines: PIV left antecubital 07/28/2024: Right heel ulcer Lab Review CBC: Recent Labs Component Name 07/30/24 0644 07/29/24 0624 07/28/24 0702 WBC 9.6 10.4 11.0* RBC 3.13* 3.22* 3.24* HGB 9.0* 9.4* 9.4* HCT 29.5* 30.1* 29.5* MCV 94.2 93.5 91.0 BMP: Recent Labs Component Name 07/30/24 0644 07/29/24 0624 07/28/24 0702 05/25/24 0643 05/24/24 0625 02/23/24 0737 02/22/24 2214 06/10/23 0939 NA 135* 137 136 - 139 - 136 143 CL 104 100 102 - 104 - 100 110* CO2 21* 23 24 - - 25 BUN 44* 35* 29* - 33* - 21 8 CREATININE 9.32* 8.24* 6.64* - 3.64* - 4.88* 1.96* ALB 1.6* 1.7* 1.7* - 1.9* - 1.5* 1.5* PROT - - - - 7.2 - 8.1 5.8* - = values in this interval not displayed. estimated creatinine clearance is 11.4 mL/min (A) (by C-G formula based on SCr of 9.32 mg/dL (H)). LFTs: Recent Labs Component Name 05/24/24 0625 02/22/24221306/10/23 0939 12/02/22 1955 08/25/22 0315 08/24/22 1404 08/24/22 0725 ALKPHOS 170* 221* 139 - - - - ALT 25 11 8 - - - - AST 14 7 12 - - - - ALBUMIN - - - - 2.0* 2.1* 1.7* - = values in this interval not displayed. Coagulation: Recent Labs Component Name 07/25/24231502/22/24221304/26/23 0629 PT 15.3* 14.6 16.3* INR 1.2 1.2 1.3 PTT 30.3 - 29.8 ESR: Recent Labs Component Name 07/25/24231505/24/24 0548 02/23/24 0737 ESR 120* 114* 116* CRP: Recent Labs Component Name 07/25/24231505/24/24 0625 02/23/24 0737 CRP 28.3* 1.4* 8.3* CK: No results for input(s): CK in the last 66379 hours. Microbiology, Imaging and other diagnostic tests MICROBIOLOGY: Blood culture: 07/25/2024: 2/2 MRSA 07/26/2024: 2/2 MRSA 07/28/2024: 1/2 GPCs 07/29/2024: 1/2 GPCs 07/30/2024: in process Right shoulder aspiration bedside 07/26/2024: Gram stain: Heavy PMNs, Light GPCs Culture: MRSA Fluid: 219,660 nucleated cells, 97% neutrophils. Path - Acute inflammatory infiltrate, Intracellular microorganisms, minimal blood contamination Right shoulder I&D OR 07/27/2024: MRSA Other Serologies: 05/31/2024: Hepatitis C non-reactive 02/24/2024: HIV non-reactive HISTOPATHOLOGY: None at this admission IMAGING & PROCEDURES: Pertinent images independently reviewed; report in chart MRI Cervical spine wwo contrast 07/30/2024 - in process VENOUS DOPPLER RIGHT UPPER EXTREMITY 07/30/2024 - in process CT FOOT RIGHT W CONTRAST 07/28/2024 IMPRESSION: Wound at the plantar aspect of [...] CT CHEST ABDOMEN PELVIS W CONTRAST 07/27/2024 Impression: 1.A 2.9 cm right subscapularis abscess with adjacent osteomyelitis of the right humeral head and septic arthritis. There is a surgical drain likely in the glenohumeral joint space. 2.An ill-defined fluid collection adjacent to the left humerus without a well-defined rim which may represent an early developing abscess versus phlegmon. 3.Cardiomegaly with pulmonary edema. 4.Dendriform pulmonary ossifications in the lung bases Associated attestation - Yovany Ramirez MD - 07/30/2024 10:09 PM CDT ..I personally saw, examined, evaluated the patient. I reviewed the history, ROS, medications, data, laboratory data, diagnostic studies that are mentioned and documented in this note. I discussed the case, management and formulated the plan with the advanced practitioner. Patient with history of ESRD on HD, chronic R heel ulcer and recurrent joint infections on admission for: MRSA bacteremia Right shoulder pyogenic arthritis Right shoulder osteomyelitis -S/p I & D -Obtain repeat blood cultures;follow blood cultures -Continue IV Vancomycin -Obtain MATT -Dialysis catheter will need to be removed. -Obtain MRI cervical spine wwo contrast Yovany Ramirez MD MPH [facility]SP The total time spent today was 10 minutes performing chart prep, reviewing data and visit with the patient which was independent of the nurse practitioner. * Nohemi Shahid PA-C - 07/30/2024 1:20 PM CDT Ortho Trauma Plan of Care Patient was evaluated this afternoon. Resting comfortably. Right Upper Extremity: R shoulder surgical dressing removed. Incision C/D/I. Hemovac x1 removed without issues. Skin cleansed with bath wipes. Gauze dressing applied to incision and drain site. Secured with Medipore tape. WBAT RUE Dressing Instructions: Recommend dry dressing change Q48H or sooner as needed. Sutures are dissolvable and will fall out on their own in about 4-6 weeks. OK to gently cleanse skin and incision with bath wipes. OK to shower on POD#5 (08/01/24). Gently wash with soap and water. Pat dry. No soaking or submersion. Daily Reminders: No further surgery needed at this time. Continue IV antibiotics per infectious disease recommendations Remainder of care per daily progress note Ortho Trauma will continue to follow. Patient will require follow up in the office with Dr. Chapman 2 week(s) after discharge. Ortho office staff to help arrange. Please notify Ortho Trauma DAYA when patient is ready for discharge. Carla Shahid PA-C 1:20 PM 07/30/2024 * Khloe Lowery - 07/30/2024 12:14 PM CDT Spoke with Baldomero at [facility] in regards to patient IV ABX needs when returning to OP HD. Per Baldomero due to the reasoning of needing IV ABX is not dialysis related that are not able to provide IV ABX. She informed that it would have to be access related for them to be able to used their ownABX. She did advise that they could give if the ABX were provided from an outsource company. Updated progress notes sent to patient's Outpatient Hemodialysis Dialysis center. Khloe Lowery [facility] Ascom: [phone] Office: [phone] * Nadir Cox - 07/30/2024 6:58 AM CDT [facility] INTERNAL MEDICINE PROGRESS NOTE Patient: Leeroy Canales Sex: female Age: [age] year old Date of : 1990 Date of Admission: 07/25/2024 Date: 07/30/2024 LOS: 5 SUBJECTIVE Interval History: -NAEON, AFVSS, JULIENNE -MATT showed no vegetations -Nephro to place trialysis line today for HD this weekend -BC 07/29 grew Gr+ cocci in clusters -CBC s/f downtrending WBC 9.6<10.4 with stable anemia (Hgb 9<9.4) -RFP s/f worsening renal function, BUN 44<35 & Cr 9.32<8.24, with K 4.7<4.5 and hyperphosphatemia (Phos 9<8) -RUE DVT doppler showed RIJ DVT prelimininarily. NORMA 1.33 on R with sufficient toe pressure Hospital Course: Leeroy Canales is a 33 yo F w PMHx of HTN, HLD, T2DM (05/2024 A1c 6.2), HFpEF, ESRD on HD T/T/S, Hx RUE DVT, chronic anemia, PVD s/p L AKA, blindness, and recent L shoulder septic arthritis 06/26 presenting for MRSA bacteremia with R shoulder septic arthritis and osteomyelitis now s/p I&D (06/26) & chronic R foot OM. Pt presented with R shoulder 10/10 throbbing pain with fever and cold sweats, reporting pain in R shoulder similar in character to prior L shoulder infection. Patient presented from rehab for LLE prosthesis. Pt admitted for further workup and infection control. Since admission, MRSA bacteremia confirmed with blood cultures and R shoulder wound culture MRSA positive with TTE negative for endocarditis, pending MATT to confirm. CT CAP showed R shoulder septic arthritis and OM as well as L shoulder fluid collection and bilateral pulmonary infiltrates. Pt underwent arthrotomy, I&D, and synvectomy per ortho for source control. ID following and pt on IV vanc . Nephrology following and removed dialysis catheter and holding HD amidst infection with low K diet and Lasix. OBJECTIVE Vital Signs: Vitals: 07/29/24 1428 07/29/24 1800 07/29/24 1942 07/30/24 0426 BP: 142/78 138/93 137/81 121/70 Pulse: 78 79 72 72 Resp: 18 18 Temp: 98 ??F (36.7 ??C) 98.3 ??F (36.8 ??C) SpO2: 98% 98% 98% Weight: Height: Temp Min: 97.6 ??F (36.4 ??C) Max: 100.7 ??F (38.2 ??C), Pulse Min: 72 Max: 91, Resp Min: 10 Max: 25, BP Min: 95/60 Max: 149/81 Intake & Output: In: 150 [P.O.:150] Out: 0 Physical Exam: General: Black/ female in NAD; AAOx4; conversational; follows commands HEENT: NC/AT; EOMI; conjunctiva normal; anicteric sclera Neck: Supple; no carotid bruit Chest: CTAB; no wheezes, crackles or rhonchi Cardiovascular: RRR, no murmurs, palpable peripheral pulses bilaterally Abdomen: Soft; +BS; non-tender; non-distended; no hepatosplenomegaly Extremities: No edema appreciated; moves all four extremities; R arm in cast and sling without tenderness to palpation, drain in place with minimal serosanginous drainage; R foot dressing c/d/I without pain to palpation; hyperpigmentation of mid calf with focal hyperpigmented macules seen beyond rodríguez ssing Skin: Skin warm, dry Neurological: CN II-XII grossly intact Psych: Normal mood and affect Current Medications: Scheduled: 0.9% NaCl 3 mL Intracatheter q8h ammonium lactate Topical BID carvedilol 12.5 mg Oral BID WC epoetin 5,000 Units Intravenous DIALYSIS FRI, FRI, & FRI ferrous sulfate 325 mg Oral QDAY WITH BREAKFAST furosemide 40 mg Oral QDAY gabapentin 300 mg Oral MON, WED AND FRI heparin 5,000 Units Subcutaneous q8h iopamidol Intravenous Contrast - Once lisinopril 20 mg Oral QDAY renal vitamin 1 tablet Oral QDAY sevelamer carbonate 800 mg Oral TID WC vancomycin (VANCOCIN) IV dose per pharmacy Does not apply DIRECTED Continuous: PRN: SALINE LOCK, INSERT AND MAINTAIN AND 0.9% NaCl AND 0.9% NaCl acetaminophen dextrose IV for hypoglycemia OR dextrose IV for hypoglycemia OR glucagon glucose (Diabetic Use) gel heparin heparin HYDROmorphone oxyCODONE (immediate release) Significant Lab Results: Latest Reference Range & Units 07/28/24 07:02 07/29/24 06:24 WBC 4.0 - 10.7 x10E9/L 11.0 (H) 10.4 RBC 3.90 - 5.20 x10E12/L 3.24 (L) 3.22 (L) Hemoglobin 11.9 - 15.8 g/dL 9.4 (L) 9.4 (L) Hematocrit 34.8 - 46.1 % 29.5 (L) 30.1 (L) MCV 80.0 - 98.0 fL 91.0 93.5 MCH 26.7 - 33.6 pg 29.0 29.2 MCHC 31.7 - 36.3 g/dL 31.9 31.2 (L) Platelet Count 150 - 420 x10E9/L 388 467 (H) RDW-CV 11.3 - 14.8 % 13.5 13.7 MPV 7.8 - 11.4 fL 9.4 9.1 Latest Reference Range & Units 07/28/24 07:02 07/29/24 06:24 Sodium 136 - 145 mmol/L 136 137 Potassium 3.5 - 4.5 mmol/L 4.2 4.5 Chloride 98 - 107 mmol/L 102 100 CO2 22 - 29 mmol/L 24 23 Anion Gap 6 - 16 10 14 BUN 7 - 26 mg/dL 29 (H) 35 (H) Creatinine 0.56 - 0.96 mg/dL 6.64 (H) 8.24 (H) eGFR >=90 mL/min/1.73 m2 8 (L) 6 (L) Glucose 70 - 115 mg/dL 190 (H) 127 (H) Calcium 8.4 - 10.2 mg/dL 7.6 (L) 8.2 (L) Phosphorus 2.9 - 5.1 mg/dL 6.7 (H) 8.0 (H) BUN/Creatinine Ratio 7 - 23 4 (L) 4 (L) Albumin 3.4 - 5.0 g/dL 1.7 (L) 1.7 (L) Osmolality Calculated 275 - 295 mOsm/kg 293 294 (H): Data is abnormally high (L): Data is abnormally low Microbiology: 07/26/24 Blood Culture: MRSA + 07/27/24 Synovial Culture: Rare MRSA 07/29/24 Blood Culture: Gr+ cocci in clusters (prelim) Imaging & Studies: 07/25/24 CXR:FINDINGS/IMPRESSION: *Right internal jugular approach dialysis catheter terminates in the superior cavoatrial junction, unchanged. Mild bilateral interstitial opacities may represent mild interstitial edema and/or atypical infection. There is no confluent airspace consolidation. No pleural effusion or pneumothorax. Cardiomegaly is suggested on this portable AP projection exam, unchanged. Mediastinal contours are normal. The visible bony thorax is intact. 07/26/24 R Shoulder XR: IMPRESSION: Osseous erosions of the humeral head and scapula, 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 Findings are further characterized outside hospital CT from 07/25/2024 ([facility] Noacute fracture or dislocation. Partially imaged airspace opacity in the setting of the right lung. Recommend attention to dedicated chest radiograph. 07/27/24 CT CAP:Impression: 1.A 2.9 cm right subscapularis abscess with adjacent osteomyelitis of the right humeral head and septic arthritis. There is a surgical drain likely in the glenohumeral joint space. 2.An ill-defined fluid collection adjacent to the left humerus without a well-defined rim which may represent an early developing abscess versus phlegmon. 3.Cardiomegaly with pulmonary edema. 4.Dendriform pulmonary ossifications in the lung bases. 07/28/24 CT R Foot:IMPRESSION: Wound at the plantar aspect of the hindfoot overlying the calcaneal tuberosity. Changes in the underlying calcaneus compatible with sequela of osteomyelitis. 07/28/24 TTE:Summary * The left ventricle is normal in [...] high for endocarditis, would suggest transesophageal echocardiogram. 07/30/24 MRI Cervical Spine wwo Contrast:IMPRESSION: 1. Normal MRI of the cervical spine. 2. An incompletely imaged T2/STIR hyperintense lesion in the apex of the left thorax/superior mediastinum measuring approximately 2.3 x 4.0 cm on sagittal T2 and STIR sequences, corresponds to a cluster of mildly enlarged lymph nodes seen on the chest CT dated 07/27/2024. 07/30/24 NORMA: R 1.33, R digit 131 ASSESSMENT & PLAN MRSA Bacteremia c/b R Shoulder Septic Arthritis & OM & R Foot OM -CT R Foot consistent with OM, CT CAP consistent with R humeral head OM and septic arthritis -I&D R shoulder 07/27 per ortho, synovial aspirate growing S. Aureus -TTE negative for endocarditis, MATT complete no vegetation seen -RUE US showing RIJ DVT prelim -NORMA WNL with adequate R toe pressure -MRI Cervical Spine showed cluster of mildly enlarged LN's Plan: -ID following, appreciate recs -2 sets of BC q24-48h till negative >72hrs on 2 consecutive days -IV vancomycin per pharm -CBC qD -CMP, vanc trough at least weekly -ESR, CRP due on 08/01 -Ortho following, appreciate recs -Hemovac removed today, dressing change q48h -Hep gtt after trialysis catheter placement for RIJ DVT Tx -Vasc surgery consulted for R foot OM, recommend R AKA but currently no intervention per patient preference. -Wound care for R foot: Betadine soaked gauze to wound bed, cover with ABD and wrap with kerlix. Heel offloading boot at all times. Ammonium lactate from base of toes to knees daily to intact skin for dry skin. Possible PNA -CT CAP showed bilateral pulmonary infiltrates -Currently covered on empiric Abx ESRD on HD T/T/S -Nephro consulted for HD management -RIJ permcatch removed 07/28, last HD 07/27 -Nephro placing trialysis line today (07/30) for weekend HD -Need 2 sets of neg BC before permcatch can be replaced -If K>5.5, start Lokelma -Lasix 40 IV qD -Continue renal multivitamin HFpEF -TTE 07/29 showed EF 55% with Grade II LV diastolic dysfunction and mild LAE -continue home carvedilol 12.5mg BID, lisinopril 20mg qD T2DM -not currently taking diabetes medication due to well-controlled -last A1c 05/25/24 6.2 -Accucheck TIDAC, CTM, BG ranging 103-239 X24H Chronic Anemia -Continue home iron 800mg TID Diabetic Neuropathy -Continue home gabapentin MWF Code: Full Diet: NPO for MATT Electrolytes: Replete PRN PPx: Heparin Access: R Shoulder Drain + PIV Dispo: Floor The above assessment and plan was discussed with the attending. This note is not final until attested by attending physician. Nadir Cox M3 - Internal Medicine [facility] 07/30/2024 6:58 AM Associated attestation - Geronimo Burleson MD - 07/30/2024 3:34 PM CDT I have verified the documentation of the medical student including all history, exam, and medical decision-making details. I have personally performed a physical exam and have personally reviewed thedata to support my medical decision-making as outlined in the medical student's note, and I arrive i ndependently at the same conclusion. Nursing staff updated with changes to care plan. Updates to disposition plan discussed with social work and case management. 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, with long-term current use of insulin (HCC) (POA: Yes) Hypoalbuminemia (POA: Yes) Septic arthritis of shoulder, right (HCC) (POA: Yes) Pneumonia of both lungs due to infectious organism, unspecified part of lung (POA: Yes) Acute pain of right shoulder (POA: Yes) Sepsis due to methicillin resistant Staphylococcus aureus (MRSA) ([facility]) (POA: Yes) Dyslipidemia (POA: Yes) Obesity, Class II, BMI 35-39.9 (POA: Yes) Hyponatremia (POA: Yes) Hyperkalemia (POA: Yes) Hyperphosphatemia (POA: Yes) Hypocalcemia (POA: Yes) Chronic ulcer of right heel (HCC) (POA: Unknown) Osteomyelitis of right foot (HCC) (POA: Yes) Geronimo Burleson MD Hospitalist Carpenter Supervisor [employer] [facility] Signed: 07/30/2024 3:33 PM * Charlie Sutherland MD - 07/30/2024 5:23 AM CDT Orthopaedic Trauma Surgery Daily Progress Note Name: Leeroy Canales Age: [age] year old Room: 641/01 Date Admitted: 07/25/2024 Interval History: Patient seen and examined on rounds this AM. No acute ortho events overnight. Pain is controlled. No new numbness or tingling. Labs CBC Recent Labs Component Name 07/29/24 0624 07/28/24 0702 07/27/24 0501 WBC 10.4 11.0* 11.7* HGB 9.4* 9.4* 9.0* HCT 30.1* 29.5* 28.7* PLTCOUNT 467* 388 339 BMP Recent Labs Component Name 07/29/24 0624 07/28/24 0702 07/27/24 0501 05/24/24 0625 03/02/24 0338 03/01/24 0310 02/29/24 0127 NA 137 136 132* - 137 135* 135* POTASSIUM 4.5 4.2 5.6* - 5.5* 4.9* 4.4 CL 100 102 105 - 102 106 104 CO2 23 24 16* - 25 21* 24 BUN 35* 29* 49* - 39* 28* 16 CREATININE 8.24* 6.64* 9.99* - 7.43* 5.80* 3.73* GLUCOSE 127* 190* 150* - 92 112 141* CALCIUM 8.2* 7.6* 7.7* - 8.8 8.8 8.3* MAGNESIUM - - - - 2.4 2.1 2.0 PHOS 8.0* 6.7* 7.7* - 7.3* 6.1* 4.1 - = values in this interval not displayed. Coags Recent Labs Component Name 07/25/24 2316 02/22/24 2214 04/26/23 0629 PT 15.3* 14.6 16.3* INR 1.2 1.2 1.3 PTT 30.3 - 29.8 Vitamin D Recent Labs Component Name 02/25/24 0110 [id number] 12.3* Vitals BP 121/70 (BP Location: Left arm, Patient Position: Lying) Pulse 72 Temp 98.3 ??F (36.8 ??C) (Oral) Resp 18 Ht 1.702 m (5' 7 ) Wt 113.5 kg (250 lb 3.2 oz) SpO2 98% Temp (24hrs), Av.2 ??F (36.8 ??C), Min:98 ??F (36.7 ??C), Max:98.3 ??F (36.8 ??C) Physical Exam General appearance: Alert, cooperative, and no apparent distress Right upper extremity: Fires motor R/M/U/AIN/PIN, Sensation intact in R/M/U nerve distributions distally, extremity warm and well perfused. Assessment and Plan: Leeroy Canales is a 33 year old female with right shoulder septic arthritis. Surgeries: - s/p: Irrigation debridement right shoulder with Dr. Chapman on 07/27 Plan: No additional planned orthopedic intervention Abx per ID Weight bearing status: right upper extremity: WBAT Diet: OK from ortho perspective Splints/Bracing/Drain: none PT/OT Current Dispo: per primary. Daily Reminders: Pain control per primary Recommend avoiding NSAIDs during the first 3 weeks after injury and surgery due to risk of delayed healing Sutures are dissolvable and will fall out on their own DVT Prophylaxis: In hospital: Heparin At discharge: Per primary, OK from Ortho perspective For questions, please contact Ortho Trauma APPs or send epic chat to [facility]. For urgent questions, please page Ortho Trauma service pager through [facility]. Patient will require follow up in the office with Dr. Chapman 2 week(s) after discharge. Ortho office staff to help arrange. Please notify Ortho Trauma [facility] when patient is ready for discharge. Contactinformation below: [facility] Office Schedulers: [phone], option 1 Charlie Sutherland MD 07/30/2024 5:23 AM * Kayli Kyle RN - 07/30/2024 12:56 AM CDT Problem: Pain/Discomfort Goal: Patient exhibits [...] in the flowsheet documentation) Outcome: Progressing Problem: Nutrient: Increased nutrient needs (specify) Goal: Total intake will meet estimated nutrient needs Outcome: Progressing Problem: Hemodynamic Status/Cardiac Output Goal: Patient has stable vital signs and fluid balance Outcome: Progressing Problem: Fluid and Electrolyte Imbalance Goal: Fluid and electrolyte balance are achieved/maintained Outcome: Progressing Problem: Infection Goal: Signs and symptoms of infections are decreased or avoided Outcome: Progressing Problem: Balance Goal: LTG - Patient will demonstrate Intervention to enhance balance for safe completion of daily activities Outcome: Progressing * Tono Del Castillo RN - 07/29/2024 4:20 PM CDT Problem: Pain/Discomfort Goal: Patient exhibits [...] in the flowsheet documentation) Outcome: Progressing Problem: Nutrient: Increased nutrient needs (specify) Goal: Total intake will meet estimated nutrient needs Outcome: Progressing Problem: Hemodynamic Status/Cardiac Output Goal: Patient has stable vital signs and fluid balance Outcome: Progressing Problem: Fluid and Electrolyte Imbalance Goal: Fluid and electrolyte balance are achieved/maintained Outcome: Progressing Problem: Infection Goal: Signs and symptoms of infections are decreased or avoided Outcome: Progressing Problem: Balance Goal: LTG - Patient will demonstrate Intervention to enhance balance for safe completion of daily activities Outcome: Progressing * Helen Zhang COTA - 07/29/2024 4:16 PM CDT [facility] Physical Medicine and Rehabilitation Occupational Therapy Progress Note Patient: Leeroy Canales [facility] Record Number: [id number] Date of : 1990 Age: [age] year old PPE worn by staff: gloves;gown - disposable Recommendations: Discharge OT Discharge Recommendations: Patient would benefit from multidisciplinary therapy This recommendation is made due to ongoing OT functional needs: address functional deficits Nurse contacted regarding patient status and/or discharge plan. Activity Level: as tolerated PRECAUTIONS: Weight Bearing Status: Upper Extremity Weight Bearing: WBAT (RUE sling can be removed for therapy per orders.) SUBJECTIVE: Subjective: I'll sit up at the edge of the bed. Pain Assessment: Pain Location #1 Pain Scale/Observation: Numeric (0-10) Pain Rating Score #1: 8 Sedation Level #1: 1-Awake and alert Pain Location : Shoulder Pain Orientation: Right Pain Quality: Aching Aggravating Factors: Activity;Movement Relieved By: Rest;Elevation Pain Intervention(s): Medication (see MAR) OBJECTIVE: At start of therapy session, patient found in bed and with bed alarm on General Appearance: NAD Vitals: (*Assess the 3 levels of oxygen saturations both for room air and 02 unless rest on room air is 88% or less). Rest BP: 136/79 (94) HR: 76 Sp02 Sp02 98% Room Air L O2 1.5 L Ex/Gait/Activity Without 02 BP: HR: Sp02 Room Air Ex/Gait/Activity With 02 BP: HR: Sp02 L O2 Post Activity BP: HR: Sp02 Sp02 L O2 Room Air Observations: Pt had no c/o SOB or dizziness. Mental Status/Cognition: Cognition: Attention/concentration-normal for age;Processing-Appropriate Attention Span: Attends with cues to redirect Memory: Appears intact Following Commands: Follows one step commands consistently Safety Judgement: Good awareness of safety precautions Bed Mobility: Supine to Sit: Minimal Assistance (for trunk elevation.) with HOB in semi- fowlers position Sit to Supine: Activity Does Not Occur (Pt wanted to remain seated at EOB. Bed alarm on and JIMMIE sanchez.) Transfers: Sit to Stand: Activity Does Not Occur (Pt declined.) Balance: Balance Scales/Tests Used: Sitting: Static/Dynamic Sitting - Static: Good - Sitting - Dynamic: Good - Activities of Daily Living: Oral Facial Hygiene: Set-up (for orientation to brush teeth and wash face sitting EOB.) Upper Body Dressing: Minimal Assistance (for gown management.) Lower Body Dressing: Maximal Assistance (to isai sock.) ACTIVITY TOLERANCE: fair AM-PAC 6 Clicks Daily Activity Raw Score:: 16 TREATMENT/INTERVENTIONS: ADL training Functional transfer training Bed mobility Safety awareness HEP training Pt completed shoulder rolls and scapular elevation x8 reps. Pt encouraged to doff sling for RUE ROM but pt declining at present time due to pain. Pt educated on importance of ROM on RUE to inhibit loss of shoulder function, pt expressing understanding and agreeable to completing later when pain is decreased. EDUCATION: While performing OT, Patient was instructed in:functional mobility training, self-care training, safety awareness/fall precautions , home exercise program Presented to patient who demonstrates Good understanding of instructions given. INFORMED CONSENT TO TREATMENT: Plan of care including recommended therapy, goals and frequency, discussed with patient who understands and agrees to proceed. ASSESSMENT: Patient continues to benefit from skilled Occupational Therapy to achieve the following functional goals. Short Term Goals: Goal Formation With patient Patient will perform home exercise program independently Patient will perform upper extremity dressing independently Patient will transfer to bedside commode with minimal assist Patient will tolerate treatment 25 minutes and with fair+ endurance Patient will demonstrate good understanding of safety education, HEP education, and adaptive equipment Carpet Weaver Goal(s): Patient to discharge to appropriate next level of inpatient care Plan: Patient continues to benefit from skilled therapy services., Continue with goals as established. If patient is discharged from the facility, this note serves as a discharge summary if further occupational therapy visits did not occur. Refer to filed flowsheet for further details. Following therapy session, patient left sitting EOB, bed alarm on, call light in reach, JIMMIE sanchez . * Roberto No MD - 07/29/2024 12:20 PM CDT Images from the original note were not included. [facility] INTERNAL MEDICINE PROGRESS NOTE Patient: Leeroy Canales Sex: female Age: [age] year old Date of : 1990 Date of Admission: 07/25/2024 Date: 07/29/2024 LOS: 4 SUBJECTIVE Interval History: Patient was seen today. She endorses some pain overnight that improves with dilaudid but no pain inthe morning. Otherwise, the team had an discussion with her about the importance of source control for her bacteremia. Hospital Course: Ms. Canales is a 33 year old female with a PMH significant for septic arthritis of L shoulder 06/2024, T2DM c/b retinopathy with blindness, ESRD on HD, HTN, HLD and HFpEF (last EF 74% with grade II diastolic dysfunction) who presented to an OSH on 07/25 for a 3 day history of progressive R shoulder pain. Per patient, the pain was present upon awakening that morning and progressed to a 10/10 deep throbbing pain in her R upper arm. She denies any recent trauma to the area, but reports cold sweats and fevers of two weeks duration. Of note, patient reports that her should pain feels exactly the same as it did during her most recent admission (05/23-06/03) for infectious arthritis of L shoulder. Pertinent labs at OSH include WBC 12.9k, Hb 10.3, plt 255; ESR 90, CRP 29.4; CMP remarkable for Na 131. Synovial fluid of R shoulder showing 92% neutrophils. Patient started empirically on azithromycin, cefepime, and vancomycin at OSH. Patient is currently receiving only vancomycin. Patient is s/p arthrotomy, irrigation and debridement, and synovectomy (07/27). OBJECTIVE Vital Signs: Vitals: 07/29/24 0343 07/29/24 0943 07/29/24 0945 07/29/24 1428 BP: 124/70 148/74 142/78 Pulse: 80 82 78 Resp: 16 Temp: 99.4 ??F (37.4 ??C) SpO2: 98% 98% Weight: Height: Temp Min: 97.6 ??F (36.4 ??C) Max: 100.7 ??F (38.2 ??C), Pulse Min: 72 Max: 91, Resp Min: 10 Max: 25, BP Min: 95/60 Max: 149/81 Intake & Output: No intake/output data recorded. Physical Exam: Physical Exam Constitutional: Appearance: Normal appearance. Cardiovascular: Rate and Rhythm: Normal rate and regular rhythm. Pulses: Normal pulses. Heart sounds: S1 normal and S2 normal. Murmur heard. Pulmonary: Effort: Pulmonary effort is normal. Breath sounds: Normal breath sounds and air entry. Abdominal: Comments: Black plaque noted in RLQ abdomen Musculoskeletal: Comments: Right foot wound pictures in media Left Lower Extremity: Left leg is amputated below knee. Neurological: Mental Status: She is alert. Current Medications: Scheduled: 0.9% NaCl 3 mL Intracatheter q8h ammonium lactate Topical BID carvedilol 12.5 mg Oral BID WC epoetin 5,000 Units Intravenous DIALYSIS TUE, BLUE, & FRI ferrous sulfate 325 mg Oral QDAY WITH BREAKFAST furosemide 40 mg Oral QDAY gabapentin 300 mg Oral FRI, FRI AND FRI heparin 5,000 Units Subcutaneous q8h iopamidol Intravenous Contrast - Once lisinopril 20 mg Oral QDAY renal vitamin 1 tablet Oral QDAY sevelamer carbonate 800 mg Oral TID WC vancomycin (VANCOCIN) IV dose per pharmacy Does not apply DIRECTED Continuous: PRN: SALINE LOCK, INSERT AND MAINTAIN AND 0.9% NaCl AND 0.9% NaCl acetaminophen dextrose IV for hypoglycemia OR dextrose IV for hypoglycemia OR glucagon glucose (Diabetic Use) gel heparin heparin HYDROmorphone oxyCODONE (immediate release) Significant Lab Results: CBC: Recent Labs Component Name 07/29/2462307/28/24 0702 07/27/24 0501 12/03/22 0242 12/02/22 1955 WBC 10.4 11.0* 11.7* - 42.0* HGB 9.4* 9.4* 9.0* - 8.9* HCT 30.1* 29.5* 28.7* - 28.3* PLATELET - - - - Occasional* PLTCOUNT 467* 388 339 - 556* - = values in this interval not displayed. BMP: Recent Labs Component Name 07/29/2462307/28/24 0702 07/27/24 0501 12/02/22 1955 08/25/22 0315 08/24/22 1404 08/24/22 0725 SODIUM - - - - 142 143 138 POTASSIUM 4.5 4.2 5.6* - 3.6 3.7 5.2* CHLORIDE - - - - 107 103 110* CO2 24 16* - 26 30 20* BUN 35* 29* 49* - 13 9 8 CREATININE 8.24* 6.64* 9.99* - 1.58* 1.43* 1.42* GLUCOSE 127* 190* 150* - 211* 145* 165* CALCIUM 8.2* 7.6* 7.7* - 7.9* 8.2* 7.8* - = values in this interval not displayed. Microbiology: Microbiology Results (Displays last 21 days for this encounter ONLY) Procedure Component Value - Date/Time CULTURE BLOOD [[id number]] Collected: 07/29/24 1117 Lab Status: In process Specimen: Blood Peripheral Updated: 07/29/24 1152 CULTURE BLOOD [[id number]] Collected: 07/28/242047 Lab Status: In process Specimen: Blood Peripheral Updated: 07/28/242053 CULTURE BLOOD [[id number]] Lab Status: No result Specimen: Blood Peripheral CULTURE BLOOD [[id number]] Collected: 07/28/24 175 Lab Status: In process Specimen: Blood Peripheral Updated: 07/28/24 175 CULTURE ANAEROBE [[id number]] (Normal) Collected: 07/27/24 0911 Lab Status: Preliminary result Specimen: Microbiology from Synovial Fluid Updated: 07/28/24 0829 Culture Culture in progress CULTURE FUNGUS OTHER+FUNGUS SMEAR [[id number]] (Normal) Collected: 07/27/24 0911 Lab Status: Preliminary result Specimen: Microbiology from Synovial Fluid Updated: 07/29/24 0623 Culture No fungus isolated Fungus Stain No yeast or hyphae seen CULTURE WOUND+GRAM STAIN [[id number]] (Abnormal) Collected: 07/27/24 0911 Lab Status: Preliminary result Specimen: Microbiology from Shoulder Updated: 07/29/24 0826 Culture Rare Staphylococcus aureus methicillin-resistant (MRSA) Comment: Staphylococcus aureus methicillin-resistant (MRSA) detected by penicillin binding protein immunoassay. Contact precautions required. Conventional antibiotic susceptibility testing to follow. Gram Stain Light Polymorphonuclear cells No organisms seen Narrative: Methicillin-resistant Staphylococci (MRSA) are resistant to all currently available beta-lactam antibiotics with the exception of the newer cephalosporins with anti-MRSA activity. Contact precautionsrequired. CULTURE BLOOD [[id number]] (Abnormal) Collected: 07/26/24 2308 Lab Status: Final result Specimen: Blood Peripheral Updated: 07/29/24 1150 Culture Growth of Staphylococcus aureus methicillin-resistant (MRSA) Comment: Staphylococcus aureus methicillin-resistant (MRSA) detected by penicillin binding protein immunoassay. Contact precautions required. Conventional antibiotic susceptibility testing to follow. Gram Stain Gram-positive cocci in clusters Narrative: Methicillin-resistant Staphylococci (MRSA) are resistant to all currently available beta-lactam antibiotics with the exception of the newer cephalosporins with anti-MRSA activity. Contact precautionsrequired. Positive at 18 hours 59 minutes. Refer to previously reported susceptibility testing, specimen number: [id number] Infectious disease consultation strongly recommended, where available. CULTURE BLOOD [[id number]] (Abnormal) Collected: 07/26/24 2252 Lab Status: Final result Specimen: Blood Peripheral Updated: 07/29/24 0959 Culture Growth of Staphylococcus aureus methicillin-resistant (MRSA) Comment: Staphylococcus aureus methicillin-resistant (MRSA) detected by penicillin binding protein immunoassay. Contact precautions required. Conventional antibiotic susceptibility testing to follow. Gram Stain Gram-positive cocci in clusters Narrative: Methicillin-resistant Staphylococci (MRSA) are resistant to all currently available beta-lactam antibiotics with the exception of the newer cephalosporins with anti-MRSA activity. Contact precautionsrequired. Positive at 15 hours 11 minutes. Refer to previously reported susceptibility testing, specimen number: [id number] Infectious disease consultation strongly recommended, where available. CULTURE FLUID+GRAM STAIN [[id number]] (Abnormal) (Susceptibility) Collected: 07/26/24 1320 Lab Status: Preliminary result Specimen: Other from Synovial Fluid Updated: 07/28/24 0632 Culture Heavy Staphylococcus aureus methicillin-resistant (MRSA) Gram Stain Heavy Polymorphonuclear cells Light Gram-positive cocci Narrative: Methicillin-resistant Staphylococci (MRSA) are resistant to all currently available beta-lactam antibiotics with the exception of the newer cephalosporins with anti-MRSA activity. Contact precautionsrequired. Susceptibility Staphylococcus aureus methicillin-resistant (MRSA) (1) Antibiotic Interpretation Microscan Method Status Clindamycin Susceptible 0.25 ug/mL CHARLES Final Doxycycline Susceptible <=0.5 ug/mL CHARLES Final Inducible Clindamycin Resistance Neg NEG ug/mL CHARLES Final Oxacillin Resistant >=4 ug/mL CHARLES Final Trimethoprim-sulfamethoxazole Resistant >=320 ug/mL CHARLES Final Vancomycin Susceptible 1 ug/mL CHARLES Final CULTURE ANAEROBE [[id number]] (Normal) Collected: 07/26/24 1320 Lab Status: Preliminary result Specimen: Microbiology from Synovial Fluid Updated: 07/29/24 1330 Culture No anaerobic organisms isolated to date. CULTURE BLOOD [[id number]] (Abnormal) Collected: 07/25/242317 Lab Status: Final result Specimen: Blood Peripheral Updated: 07/28/24 1110 Culture Growth of Staphylococcus aureus methicillin-resistant (MRSA) Comment: Staphylococcus aureus methicillin-resistant (MRSA) detected by penicillin binding protein immunoassay. Contact precautions required. Conventional antibiotic susceptibility testing to follow. Gram Stain Gram-positive cocci in clusters Narrative: Methicillin-resistant Staphylococci (MRSA) are resistant to all currently available beta-lactam antibiotics with the exception of the newer cephalosporins with anti-MRSA activity. Contact precautionsrequired. Contact precautions required. Positive at 12 hours 7 minutes. Infectious disease consultation strongly recommended, where available. Refer to previously reported susceptibility testing, specimen number: [id number] CULTURE BLOOD [[id number]] (Abnormal) (Susceptibility) Collected: 07/25/242315 Lab Status: Final result Specimen: Blood Peripheral Updated: 07/28/24 1440 Culture Growth of Staphylococcus aureus methicillin-resistant (MRSA) Comment: Staphylococcus aureus methicillin-resistant (MRSA) detected by penicillin binding protein immunoassay. Contact precautions required. Conventional antibiotic susceptibility testing to follow. Gram Stain Gram-positive cocci in clusters Narrative: Methicillin-resistant Staphylococci (MRSA) are resistant to all currently available beta-lactam antibiotics with the exception of the newer cephalosporins with anti-MRSA activity. Contact precautionsrequired. Positive at 12 hours 50 minutes. Infectious disease consultation strongly recommended, where available. Susceptibility Staphylococcus aureus methicillin-resistant (MRSA) (1) Antibiotic Interpretation Microscan Method Status Oxacillin Resistant >=4 ug/mL CHARLES Final Vancomycin Susceptible 1 ug/mL CHARLES Final BCID PANEL [[id number]] (Abnormal) Collected: 07/25/242315 Lab Status: Final result Specimen: Blood Peripheral Updated: 07/26/24 1644 Staphylococcus aureus Detected MECA/C and MREJ (Methicillin-Resistance Gene) Detected Comment: Results indicate methicillin-resistant Staphylococcus aureus (MRSA). Methicillin resistance detected. Narrative: Blood Culture ID Panel performed by [employer] multiplex PCR. The Test panel includes: Gram Positive Bacteria: Enterococcus faecalis, Enterococcus faecium, Listeria monocytogenes, Staphylococcus (genus), Staphylococcus aureus, Staphylococcus epidermidis, Staphylococcus lugdunensis, Streptococcus (genus), Streptococcus agalactiae (Group B), Streptococcus pneumoniae, Streptococcus pyogenes (Group A). Gram Negative Bacteria: Acinetobacter baumannii complex, Bacteroides fragilis, Haemophilus influenzae, Neisseria meningitidis (encapsulated), Pseudomonas aeruginosa, Stenotrophomonas maltophilia, Enterobacterales (formerly Enterobacteriaceae family), Enterobacter cloacae complex, Escherichia coli, K lebsiella (formerly Enterobacter) aerogenes, Klebsiella oxytoca, Klebsiella pneumoniae group, Proteus (genus), Salmonella species, Serratia marcescens. YEAST: Larisa albicans, Larisa auris, Larisa glabrata, Larisa krusei, Larisa parapsilosis, Larisa tropicalis, Cryptococcus neoformans/gattii. Antimicrobial Resistance Genes: CTX-M (extended-spectrum beta-lactamase), IMP ([place] beta-lactamase), KPC (carbapenemase), mcr-1 (colistin resistance determinant) mecA/C (methicillin-resistance), mecA/C and MREJ (methicillin- resistance - MRSA), NDM ([place] yiwqmar-dfxv-csxbtmgks), OXA-48-like ( oxacillinase beta-lactamase),Geo/B (vancomycin-resistance), VIM ([place] Intergrom-Encoded [place] beta-lactamase). Imaging & Studies: CT Foot Right W Contrast Result Date: 07/28/2024 IMPRESSION: Wound at the plantar aspect of the hindfoot overlying the calcaneal tuberosity. Changesin the underlying calcaneus compatible with sequela of osteomyelitis. > Interpreting Provider: Xander De Guzman MD on 07/28/2024 3:[address] Chest Abdomen Pelvis W Cont Result Date: 07/27/2024 Impression: 1.A 2.9 cm right subscapularis abscess with adjacent osteomyelitis of the right humeralhead and septic arthritis. There is a surgical drain likely in the glenohumeral joint space. 2.An ill-defined fluid collection adjacent to the left humerus without a well-defined rim which may represent an early developing abscess versus phlegmon. 3.Cardiomegaly with pulmonary edema. 4.Dendriform pulmonary ossifications in the lung bases. > Dictated by Steve Haney DO (energy operations vice president). I, Arthur Avery MD have personally reviewed and interpreted this examination/study. 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, with long-term current use of insulin (HCC) (POA: Yes) Hypoalbuminemia (POA: Yes) Septic arthritis of shoulder, right (HCC) (POA: Yes) Pneumonia of both lungs due to infectious organism, unspecified part of lung (POA: Yes) Acute pain of right shoulder (POA: Yes) Sepsis due to methicillin resistant Staphylococcus aureus (MRSA) (HCC) (POA: Yes) Dyslipidemia (POA: Yes) Obesity, Class II, BMI 35-39.9 (POA: Yes) Hyponatremia (POA: Yes) Hyperkalemia (POA: Yes) Hyperphosphatemia (POA: Yes) Hypocalcemia (POA: Yes) Chronic ulcer of right heel (HCC) (POA: Unknown) #MRSA bacteremia #Septic arthritis of right shoulder s/p I&D - TTE was negative for endocarditis, pending MATT (will be NPO as of midnight) - aspiration of right should grew MRSA - ID and ortho team on board - IV vancomycin - MRI cervical spine to evaluate for the septic arthritis - 2 sets of blood cultures every 24-48 hours until negative for > 72 hours on 2 consecutive days - F/U RUE doppler for evaluation of thrombus #Right foot osteomyelitis - osteomyelitis seen on CT of the foot - vascular surgery consulted; they recommended amputation for source control but patient refused. Surgical debridement not beneficial as per surgery team. - Wound care #ESRD on HD TTS - Nephrology on board; currently permacath was removed due to MRSA bacteremia - Will need two sets of negative blood cultures before permacath can be replaced - no urgent need for dialysis today - Low K diet and fluid restriction - Strict I&O's, daily weights, avoid nephrotoxic medications - renal vitamins - If K>5, lokelma will be started #Anemia of chronic disease - transfuse if Hgb <7 #Type 2 DM - POC glucose TID with meals and at bedtime #HTN - continue home carvedilol and lisinopril #Diastolic dysfunction - echo 05/21/23 showed grade 2 diastolic dysfunction Code: Full Diet: Renal Electrolytes: Replete PRN PPx: heparin Access: PIV Dispo: pending medical clearance The above assessment and plan will be discussed with the attending. This note is not final until attested by attending physician. Roberto No MD Internal Medicine Resident [facility] 07/29/2024 3:32 PM Associated attestation - Geronimo Burleson MD - 07/29/2024 4:53 PM CDT I saw and examined Ms. Canales with the resident physician. I agree with the findings and care plan as documented by the resident physician. CT imaging findings consistent with osteomyelitis of right foot. She may ultimately need surgical intervention of R lower extremity in order to achieve adequate source control. She is apprehensive about the prospect of amputation at this time. Nursing staff updated with changes to care plan. Updates to disposition plan discussed with social work and case management. 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, with long-term current use of insulin ([facility]) (POA: Yes) Hypoalbuminemia (POA: Yes) Septic arthritis of shoulder, right ([facility]) (POA: Yes) Pneumonia of both lungs due to infectious organism, unspecified part of lung (POA: Yes) Acute pain of right shoulder (POA: Yes) Sepsis due to methicillin resistant Staphylococcus aureus (MRSA) (HCC) (POA: Yes) Dyslipidemia (POA: Yes) Obesity, Class II, BMI 35-39.9 (POA: Yes) Hyponatremia (POA: Yes) Hyperkalemia (POA: Yes) Hyperphosphatemia (POA: Yes) Hypocalcemia (POA: Yes) Chronic ulcer of right heel (HCC) (POA: Unknown) Geronimo Burleson MD Hospitalist Carpenter Supervisor [facility] Signed: 07/29/2024 4:50 PM * Nadir Cox - 07/29/2024 12:15 PM CDT [facility] INTERNAL MEDICINE PROGRESS NOTE Patient: Leeroy Canales Sex: female Age: [age] year old Date of : 1990 Date of Admission: 07/25/2024 Date: 07/29/2024 LOS: 4 SUBJECTIVE Interval History: -NAEON, AFVSS, saturating well on 1.5L NC -Pt reports pain well controlled with Dilaudid. However, mentions oxy 5mg PRN is ineffective and josiah lower dose than home pain management (oxy 10mg q4h PRN) -Pt denies SOB, wheeze, cough, chest pain, N/V/D -CBC s/f downtrending WBC 10.4 < 11, chronic normocytic anemia (Hgb 9.4 < 9.4) with thrombocytosis (Pt 467) -RFP s/f worsening renal function (BUN 35 < 29, Cr 8.24 < 6.64) -TTE showed EF 55% with Grade II diastolic dysfunction & mild LAE. No vegetation seen. Pt placed NPO for MATT -CT R foot consistent with OM Hospital Course: Leeroy Canales is a 33 yo F w PMHx of HTN, HLD, T2DM (05/2024 A1c 6.2), HFpEF, ESRD on HD T/T/S, Hx RUE DVT, chronic anemia, PVD s/p L AKA, blindness, and recent L shoulder septic arthritis 06/26 presenting for MRSA bacteremia with R shoulder septic arthritis and osteomyelitis now s/p I&D (06/26) & chronic R foot OM. Pt presented with R shoulder 10/10 throbbing pain with fever and cold sweats, reporting pain in R shoulder similar in character to prior L shoulder infection. Patient presented from rehab for LLE prosthesis. Pt admitted for further workup and infection control. Since admission, MRSA bacteremia confirmed with blood cultures and R shoulder wound culture MRSA positive with TTE negative for endocarditis, pending MATT to confirm. CT CAP showed R shoulder septic arthritis and OM as well as L shoulder fluid collection and bilateral pulmonary infiltrates. Pt underwent arthrotomy, I&D, and synvectomy per ortho for source control. ID following and pt on IV vanc . Nephrology following and removed dialysis catheter and holding HD amidst infection with low K diet and Lasix. OBJECTIVE Vital Signs: Vitals: 07/29/24 0009 07/29/24 0343 07/29/24 0943 07/29/24 0945 BP: 118/71 124/70 148/74 Pulse: 91 80 82 Resp: 16 16 Temp: 98.5 ??F (36.9 ??C) 99.4 ??F (37.4 ??C) SpO2: 92% 98% Weight: Height: Temp Min: 97.6 ??F (36.4 ??C) Max: 100.7 ??F (38.2 ??C), Pulse Min: 72 Max: 91, Resp Min: 10 Max: 25, BP Min: 95/60 Max: 149/81 Intake & Output: No intake/output data recorded. Physical Exam: General: Black/ female in NAD; AAOx4; conversational; follows commands HEENT: NC/AT; EOMI; conjunctiva normal; anicteric sclera Neck: Supple; no carotid bruit Chest: CTAB; no wheezes, crackles or rhonchi Cardiovascular: RRR, no murmurs, palpable peripheral pulses bilaterally Abdomen: Soft; +BS; non-tender; non-distended; no hepatosplenomegaly Extremities: No edema appreciated; moves all four extremities; R arm in cast and sling without tenderness to palpation, drain in place with minimal serosanginous drainage; R foot dressing c/d/I without pain to palpation; hyperpigmentation of mid calf with focal hyperpigmented macules seen beyond rodríguez ssing Skin: Skin warm, dry Neurological: CN II-XII grossly intact Psych: Normal mood and affect Current Medications: Scheduled: 0.9% NaCl 3 mL Intracatheter q8h ammonium lactate Topical BID carvedilol 12.5 mg Oral BID WC epoetin 5,000 Units Intravenous DIALYSIS TUE, BLUE, & SAT ferrous sulfate 325 mg Oral QDAY WITH BREAKFAST furosemide 40 mg Oral QDAY gabapentin 300 mg Oral FRI, FRI AND FRI heparin 5,000 Units Subcutaneous q8h iopamidol Intravenous Contrast - Once lisinopril 20 mg Oral QDAY renal vitamin 1 tablet Oral QDAY sevelamer carbonate 800 mg Oral TID WC vancomycin 500 mg Intravenous Once vancomycin (VANCOCIN) IV dose per pharmacy Does not apply DIRECTED Continuous: PRN: SALINE LOCK, INSERT AND MAINTAIN AND 0.9% NaCl AND 0.9% NaCl acetaminophen dextrose IV for hypoglycemia OR dextrose IV for hypoglycemia OR glucagon glucose (Diabetic Use) gel heparin heparin HYDROmorphone oxyCODONE (immediate release) Significant Lab Results: Latest Reference Range & Units 07/28/24 07:02 07/29/24 06:24 WBC 4.0 - 10.7 x10E9/L 11.0 (H) 10.4 RBC 3.90 - 5.20 x10E12/L 3.24 (L) 3.22 (L) Hemoglobin 11.9 - 15.8 g/dL 9.4 (L) 9.4 (L) Hematocrit 34.8 - 46.1 % 29.5 (L) 30.1 (L) MCV 80.0 - 98.0 fL 91.0 93.5 MCH 26.7 - 33.6 pg 29.0 29.2 MCHC 31.7 - 36.3 g/dL 31.9 31.2 (L) Platelet Count 150 - 420 x10E9/L 388 467 (H) RDW-CV 11.3 - 14.8 % 13.5 13.7 MPV 7.8 - 11.4 fL 9.4 9.1 Latest Reference Range & Units 07/28/24 07:02 07/29/24 06:24 Sodium 136 - 145 mmol/L 136 137 Potassium 3.5 - 4.5 mmol/L 4.2 4.5 Chloride 98 - 107 mmol/L 102 100 CO2 22 - 29 mmol/L 24 23 Anion Gap 6 - 16 10 14 BUN 7 - 26 mg/dL 29 (H) 35 (H) Creatinine 0.56 - 0.96 mg/dL 6.64 (H) 8.24 (H) eGFR >=90 mL/min/1.73 m2 8 (L) 6 (L) Glucose 70 - 115 mg/dL 190 (H) 127 (H) Calcium 8.4 - 10.2 mg/dL 7.6 (L) 8.2 (L) Phosphorus 2.9 - 5.1 mg/dL 6.7 (H) 8.0 (H) BUN/Creatinine Ratio 7 - 23 4 (L) 4 (L) Albumin 3.4 - 5.0 g/dL 1.7 (L) 1.7 (L) Osmolality Calculated 275 - 295 mOsm/kg 293 294 (H): Data is abnormally high (L): Data is abnormally low Microbiology: 07/26/24 Blood Culture: MRSA + 07/27/24 Synovial Culture: Rare MRSA (prelim) 07/28/24: Blood Culture x2 pending 07/29/24: Blood Culture pending Imaging & Studies: 07/25/24 CXR:FINDINGS/IMPRESSION: *Right internal jugular approach dialysis catheter terminates in the superior cavoatrial junction, unchanged. Mild bilateral interstitial opacities may represent mild interstitial edema and/or atypical infection. There is no confluent airspace consolidation. No pleural effusion or pneumothorax. Cardiomegaly is suggested on this portable AP projection exam, unchanged. Mediastinal contours are normal. The visible bony thorax is intact. 07/26/24 R Shoulder XR: IMPRESSION: Osseous erosions of the humeral head and scapula, 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 Findings are further characterized outside hospital CT from 07/25/2024 ([facility] Noacute fracture or dislocation. Partially imaged airspace opacity in the setting of the right lung. Recommend attention to dedicated chest radiograph. 07/27/24 CT CAP:Impression: 1.A 2.9 cm right subscapularis abscess with adjacent osteomyelitis of the right humeral head and septic arthritis. There is a surgical drain likely in the glenohumeral joint space. 2.An ill-defined fluid collection adjacent to the left humerus without a well-defined rim which may represent an early developing abscess versus phlegmon. 3.Cardiomegaly with pulmonary edema. 4.Dendriform pulmonary ossifications in the lung bases. 07/28/24 CT R Foot:IMPRESSION: Wound at the plantar aspect of the hindfoot overlying the calcaneal tuberosity. Changes in the underlying calcaneus compatible with sequela of osteomyelitis. 07/28/24 TTE:Summary * The left ventricle is normal in [...] high for endocarditis, would suggest transesophageal echocardiogram. ASSESSMENT & PLAN MRSA Bacteremia c/b R Shoulder Septic Arthritis & OM & R Foot OM -CT R Foot consistent with OM, CT CAP consistent with R humeral head OM and septic arthritis -I&D R shoulder 07/27, synovial aspirate growing S. Aureus -TTE negative for endocarditis, MATT pending -RUE US pending for DVT -ID following, appreciate recs -2 sets of BC q24-48h till negative >72hrs on 2 consecutive days -IV vancomycin per pharm -Order MRI cervical spine wwo contrast -Tunneled dialysis line removed per nephro -CBC qD -CMP, vanc trough at least weekly -ESR, CRP due on 08/01 -Ortho following s/p R shoulder I&D, appreciate recs -Vasc surgery consulted for R foot OM, recommend R AKA but currently no intervention per patient preference. -Wound care for R foot: Betadine soaked gauze to wound bed, cover with ABD and wrap with kerlix. Heel offloading boot at all times. Ammonium lactate from base of toes to knees daily to intact skin for dry skin. Possible PNA -CT CAP showed bilateral pulmonary infiltrates -Currently covered on empiric Abx ESRD on HD T/T/S -Nephro consulted for HD management -RIJ permcatch removed 07/28, last HD 07/27 -Need 2 sets of neg BC before permcatch can be replaced -If K>5, start Lokelma -Lasix 40 IV BID -Continue renal multivitamin HFpEF -TTE 07/29 showed EF 55% with Grade II LV diastolic dysfunction and mild LAE -continue home carvedilol 12.5mg BID, lisinopril 20mg qD T2DM -not currently taking diabetes medication due to well-controlled -last A1c 05/25/24 6.2 -Accucheck TIDAC, CTM, BG ranging 103-212 X24H Chronic Anemia -Continue home iron 800mg TID Diabetic Neuropathy -Continue home gabapentin MWF Code: Full Diet: NPO for MATT Electrolytes: Replete PRN PPx: Lovenox Access: R Shoulder Drain + PIV Dispo: Floor The above assessment and plan was discussed with the attending. This note is not final until attested by attending physician. Nadir Cox M3 - Internal Medicine [facility] 07/29/2024 12:20 PM Associated attestation - Geronimo Burleson MD - 07/29/2024 4:50 PM CDT This note is for educational purposes only and has not necessarily been verified. * Teri Preston, EliezerD - 07/29/2024 12:13 PM CDT ACTIVE CONSULTS TO PHARMACY/DISEASE STATE MONITORING Pharmacy Consult: Vancomycin ASSESSMENT/PLAN Indication: documented Bacteremia + Bone/joint of R shoulder with Goal Level: pre HD level 15-20 mcg/ml ID consulted/following: Yes, rec to continue vancomycin Assessment: Day of treatment: 4 End of treatment date: to be determined Current dosing regimen: intermittent dosing based on levels - Loading dose of 2g given at OSH, no doses given at [facility] given therapeutic levels Recent Labs Component Name 07/29/24 0624 07/28/24 0702 07/27/24 0501 07/26/24 0923 07/26/24 0850 06/02/24 0552 06/01/24 0442 05/22/23 0521 05/21/23 0450 05/20/23 0918 05/17/23 2151 05/09/23 0357 05/08/23 0841 04/29/23 0338 04/28/23 0319 04/27/232018 CREATININE 8.24* 6.64* 9.99* - 8.40* - 5.83* - 1.62* - - 1.83* - - 1.39* - BUN 35* 29* 49* - 38* - 43* - 13 - - 17 - - 13 - VANCORNDM 17.0 - - 32.2 - - 18.3 - - - - - - - - - VANCTROUGH - - - - - - - - 15.5 - - 19.5 - - 34.6* - VANCOPEAK - - - - - - - - - 20.1* - - 26.1 - - 46.6* - = values in this interval not displayed. Microbiology: Recent Labs Component Name 02/22/24 2359 MRSADPCR Detected* MRSA positive: Yes, hx of MRSA bacteremia February and May with shoulder joint involvement 07/25 blood 2/2 - MRSA 07/26 shoulder fluid - MRSA 07/26 blood 2/ - MRSA 07/27 should synovial fluid - rare Staph aureus Renal: Considered difficult to accurately assess at this time as patient was on iHD until 07/28 when dialysis line was removed for source control. Unclear dialysis plans at this time, but will likely place new dialysis line following 2x negative blood cultures Level(s): See chart above Random level on 07/29 at 0624 was 17.0 mcg/ml. Patient is on iHD with expected clearance of 20-30% per iHD session, the level reported in chart is currently therapeutic as predicted. Given unclear dialysis plan and minimal residual kidney function, I would expect the vancomycin level to remain therapeutic without additional dosing. However, cultures remain positive for MRSA, so will give a dose of500 mg now and recheck a vanc random level on 07/31 @ 0400 with AM labs to assess regimen prior to resumption of dialysis. Of note, patient is reportedly a difficult stick which may provide difficultyin obtaining levels. Plan Dosing: Will continue serial dosing based on acute renal instability and/or CrCl < 30 mL/min. Will orderdose of 500 mg to be given on 07/29 at 1300. Monitoring: Will order a vancomycin random level on 07/31 at 0400 with morning labs and adjust regimen if indicated. Continue to monitor patient???s renal function and cultures as needed. Teri Preston PharmD 07/29/2024 7:58 AM [facility] Vancomycin Guideline SUBJECTIVE/OBJECTIVE Leeroy Canales is a 33 year old female. Height: 5' 7 (170.2 cm) Wt 113.5 kg (250 lb 3.2 oz) Body mass index is 39.19 kg/m??. Vancomycin Administrations from JAN (last 72 hours) None * Mari Scruggs RN - 07/29/2024 11:53 AM CDT Care Coordination Progress Note Expected Discharge Date: 08/02/2024: Discharge Plan: [facility] Barriers: Per MDRs MRSA -antibiotic plan pending. Family Support (Name and Phone): Extended Emergency Contact Information Primary Emergency Contact: Silvia Resendiz Mobile Relation: Mother Clerical Coordinator needed? No Secondary Emergency Contact: GAYE BEAL Mobile Relation: Sister Clerical Coordinator needed? No Transportation at Discharge: Ambulance READMISSION RISK SCORE is 25 at 11:53 AM 07/29/2024.: Name: Mari Scruggs RN * Lorin Reynolds MD - 07/29/2024 11:33 AM CDT Images from the original note were not included. [facility] NEPHROLOGY PROGRESS NOTE Patient: Leeroy Canales Sex: female Age: [age] year old Date of : 1990 Date of Admission: 07/25/2024 Date: 07/29/2024 LOS: 4 SUBJECTIVE Interval History: - NAEON. TTE completed yesterday w/ EF 55%, G2DD, no vegetations. Will need MATT. CT Foot yesterday w/ osteomyelitis of the heel - Vascular consulted and recommended amputation which patient refused at this time. ID following- to undergo MRI C-spine Afebrile and HDS overnight. K stable at 4.5 without acidosis- phos elevated at 8.0. Some UOP noted yesterday night but not documented. Hospital Course: Ms. Canales is a 33y/o female w/ PMH of DM2 (diagnosed at 17) c/b retinopathy and nephropathy, ESRD on HD TThS, HTN, HLD, RUE DVT, ACD, PVD c/b L AKA, HFpEF, prior L shoulder septic arthritis who presents for R shoulder pain subsequently diagnosed as septic arthritis. Upon admission to [facility] afebrile, HDS. Labs remarkable for BNP 380, K 4.7, CO2 18, Ca 8.3, P 6.5, Lactic wnl, WBC 13.0, Hg 9.5 (b ~10), ESR 120, CRP 28.3. Blood cultures 07/25 w/ MRSA. Ortho consulted due to concerns for septic arthritis- join aspiration w/ 219k nuc cells 97% Neutrophils diagnostic for septic arthritis. Fluid culture w/ MRSA. Started on Vancomycin. Underwent I&D w/ Ortho on 07/27. Subsequent CT CAP w/ subscapularis abscess w/ adjacent osteo and L humeral fluid collection abscess vs phlegmon. ID consulted given bacteremia- TTE w/ EF 55%, G2DD and no vegetations. CT R heel for chronic wound w/ evidence of osteo. Vascular consulted and recommended amputation- which patient refused. MATT and MRI C-spine to be completed. Nephro consulted for HD and given bacteremia completed one session of HD w/ subsequent line removal until blood cultures negative- 07/28 cultures pending. OBJECTIVE Vital Signs: Vitals: 07/29/24 0009 07/29/24 0343 07/29/24 0943 07/29/24 0945 BP: 118/71 124/70 148/74 Pulse: 91 80 82 Resp: 16 16 Temp: 98.5 ??F (36.9 ??C) 99.4 ??F (37.4 ??C) SpO2: 92% 98% Weight: Height: Temp Min: 97.6 ??F (36.4 ??C) Max: 100.7 ??F (38.2 ??C), Pulse Min: 72 Max: 91, Resp Min: 10 Max: 25, BP Min: 95/60 Max: 149/81 Intake & Output: No intake/output data recorded. Physical Exam: Physical Exam Constitutional: General: She is not in acute distress. Appearance: She is not toxic-appearing or diaphoretic. HENT: Head: Normocephalic. Right Ear: External ear normal. Left Ear: External ear normal. Nose: Nose normal. Mouth/Throat: Mouth: Mucous membranes are moist. Pharynx: Oropharynx is clear. Eyes: Extraocular Movements: Extraocular movements intact. Conjunctiva/sclera: Conjunctivae normal. Pupils: Pupils are equal, round, and reactive to light. Cardiovascular: Rate and Rhythm: Normal rate and regular rhythm. Pulses: Normal pulses. Heart sounds: Normal heart sounds. No murmur heard. Pulmonary: Effort: Pulmonary effort is normal. No respiratory distress. Breath sounds: Normal breath sounds. No wheezing. Comments: On 2L NC Abdominal: General: Abdomen is flat. Bowel sounds are normal. There is no distension. Palpations: Abdomen is soft. Tenderness: There is no abdominal tenderness. Musculoskeletal: General: Signs of injury present. Right lower leg: Edema present. Comments: LLE AKA. RLE w/ chronic ulceration on heel and chronic ulcerative skin changes of RLE. RUE in sling with limited ROM Skin: General: Skin is warm and dry. Coloration: Skin is not jaundiced. Findings: No bruising or lesion. Neurological: General: No focal deficit present. Mental Status: She is alert and oriented to person, place, and time. Psychiatric: Mood and Affect: Mood normal. Current Medications: Scheduled: 0.9% NaCl 3 mL Intracatheter q8h ammonium lactate Topical BID carvedilol 12.5 mg Oral BID WC epoetin 5,000 Units Intravenous DIALYSIS TUE, BLUE, & SAT ferrous sulfate 325 mg Oral QDAY WITH BREAKFAST furosemide 40 mg Oral QDAY gabapentin 300 mg Oral MON, WED AND FRI heparin 5,000 Units Subcutaneous q8h iopamidol Intravenous Contrast - Once iopamidol Intravenous Contrast - Once lisinopril 20 mg Oral QDAY renal vitamin 1 tablet Oral QDAY sevelamer carbonate 800 mg Oral TID WC vancomycin (VANCOCIN) IV dose per pharmacy Does not apply DIRECTED Continuous: PRN: SALINE LOCK, INSERT AND MAINTAIN AND 0.9% NaCl AND 0.9% NaCl acetaminophen dextrose IV for hypoglycemia OR dextrose IV for hypoglycemia OR glucagon glucose (Diabetic Use) gel heparin heparin HYDROmorphone oxyCODONE (immediate release) Significant Lab Results: Results for orders placed or performed during the hospital encounter of 07/25/24 (from the past 24 hour(s)) GLUCOSE - POINT OF CARE Result Value Ref Range Glucose WB/POC 186 (H) 70 - 115 mg/dL Specimen Type Cap Fingerstick GLUCOSE - POINT OF CARE Result Value Ref Range Glucose WB/POC 212 (H) 70 - 115 mg/dL Specimen Type Cap Fingerstick GLUCOSE - POINT OF CARE Result Value Ref Range Glucose WB/POC 189 (H) 70 - 115 mg/dL Specimen Type Cap Fingerstick GLUCOSE - POINT OF CARE Result Value Ref Range Glucose WB/POC 103 70 - 115 mg/dL Specimen Type Cap Fingerstick CBC W/O DIFFERENTIAL Result Value Ref Range WBC 10.4 4.0 - 10.7 x10E9/L RBC Count 3.22 (L) 3.90 - 5.20 x10E12/L Hemoglobin 9.4 (L) 11.9 - 15.8 g/dL Hematocrit 30.1 (L) 34.8 - 46.1 % MCV 93.5 80.0 - 98.0 fL MCH 29.2 26.7 - 33.6 pg MCHC 31.2 (L) 31.7 - 36.3 g/dL RDW-CV 13.7 11.3 - 14.8 % Platelet Count 467 (H) 150 - 420 x10E9/L MPV 9.1 7.8 - 11.4 fL RENAL FUNCTION PANEL Result Value Ref Range BUN 35 (H) 7 - 26 mg/dL Creatinine 8.24 (H) 0.56 - 0.96 mg/dL Sodium 137 136 - 145 mmol/L Potassium 4.5 3.5 - 4.5 mmol/L Chloride 100 98 - 107 mmol/L CO2 23 22 - 29 mmol/L Glucose 127 (H) 70 - 115 mg/dL Albumin 1.7 (L) 3.4 - 5.0 g/dL Calcium 8.2 (L) 8.4 - 10.2 mg/dL Phosphorus 8.0 (H) 2.9 - 5.1 mg/dL Anion Gap 14 6 - 16 BUN/Creatinine Ratio 4 (L) 7 - 23 Osmolality Calculated 294 275 - 295 mOsm/kg eGFR by CKD-EPI 6 (L) >=90 mL/min/1.73 m2 VANCOMYCIN LEVEL RANDOM Result Value Ref Range Vancomycin Random 17.0 Therapeutic Ranges not established for random specimens ug/mL Microbiology: Microbiology Results (Displays last 21 days for this encounter ONLY) Procedure Component Value - Date/Time CULTURE BLOOD [[id number]] Collected: 07/29/24 1117 Lab Status: No result Specimen: Blood Peripheral CULTURE BLOOD [[id number]] Collected: 07/28/24 2048 Lab Status: In process Specimen: Blood Peripheral Updated: 07/28/24 205 CULTURE BLOOD [[id number]] Lab Status: No result Specimen: Blood Peripheral CULTURE BLOOD [[id number]] Collected: 07/28/24 175 Lab Status: In process Specimen: Blood Peripheral Updated: 07/28/24 175 CULTURE ANAEROBE [[id number]] (Normal) Collected: 07/27/24 0911 Lab Status: Preliminary result Specimen: Microbiology from Synovial Fluid Updated: 07/28/24 0829 Culture Culture in progress CULTURE FUNGUS OTHER+FUNGUS SMEAR [[id number]] (Normal) Collected: 07/27/24 0911 Lab Status: Preliminary result Specimen: Microbiology from Synovial Fluid Updated: 07/29/24 0623 Culture No fungus isolated Fungus Stain No yeast or hyphae seen CULTURE WOUND+GRAM STAIN [[id number]] (Abnormal) Collected: 07/27/24 0911 Lab Status: Preliminary result Specimen: Microbiology from Shoulder Updated: 07/29/24 0826 Culture Rare Staphylococcus aureus methicillin-resistant (MRSA) Comment: Staphylococcus aureus methicillin-resistant (MRSA) detected by penicillin binding protein immunoassay. Contact precautions required. Conventional antibiotic susceptibility testing to follow. Gram Stain Light Polymorphonuclear cells No organisms seen Narrative: Methicillin-resistant Staphylococci (MRSA) are resistant to all currently available beta-lactam antibiotics with the exception of the newer cephalosporins with anti-MRSA activity. Contact precautionsrequired. CULTURE BLOOD [[id number]] (Abnormal) Collected: 07/26/24 2308 Lab Status: Preliminary result Specimen: Blood Peripheral Updated: 07/29/24 1030 Culture Growth of Staphylococcus aureus methicillin-resistant (MRSA) Comment: Staphylococcus aureus methicillin-resistant (MRSA) detected by penicillin binding protein immunoassay. Contact precautions required. Conventional antibiotic susceptibility testing to follow. Gram Stain Gram-positive cocci in clusters Narrative: Methicillin-resistant Staphylococci (MRSA) are resistant to all currently available beta-lactam antibiotics with the exception of the newer cephalosporins with anti-MRSA activity. Contact precautionsrequired. Positive at 18 hours 59 minutes. Refer to previously reported susceptibility testing, specimen number: [id number] Infectious disease consultation strongly recommended, where available. CULTURE BLOOD [[id number]] (Abnormal) Collected: 07/26/24 2252 Lab Status: Final result Specimen: Blood Peripheral Updated: 07/29/24 0959 Culture Growth of Staphylococcus aureus methicillin-resistant (MRSA) Comment: Staphylococcus aureus methicillin-resistant (MRSA) detected by penicillin binding protein immunoassay. Contact precautions required. Conventional antibiotic susceptibility testing to follow. Gram Stain Gram-positive cocci in clusters Narrative: Methicillin-resistant Staphylococci (MRSA) are resistant to all currently available beta-lactam antibiotics with the exception of the newer cephalosporins with anti-MRSA activity. Contact precautionsrequired. Positive at 15 hours 11 minutes. Refer to previously reported susceptibility testing, specimen number: [id number] Infectious disease consultation strongly recommended, where available. CULTURE FLUID+GRAM STAIN [[id number]] (Abnormal) (Susceptibility) Collected: 07/26/24 1320 Lab Status: Preliminary result Specimen: Other from Synovial Fluid Updated: 07/28/24 0632 Culture Heavy Staphylococcus aureus methicillin-resistant (MRSA) Gram Stain Heavy Polymorphonuclear cells Light Gram-positive cocci Narrative: Methicillin-resistant Staphylococci (MRSA) are resistant to all currently available beta-lactam antibiotics with the exception of the newer cephalosporins with anti-MRSA activity. Contact precautionsrequired. Susceptibility Staphylococcus aureus methicillin-resistant (MRSA) (1) Antibiotic Interpretation Microscan Method Status Clindamycin Susceptible 0.25 ug/mL CHARLES Final Doxycycline Susceptible <=0.5 ug/mL CHARLES Final Inducible Clindamycin Resistance Neg NEG ug/mL CHARLES Final Oxacillin Resistant >=4 ug/mL CHARLES Final Trimethoprim-sulfamethoxazole Resistant >=320 ug/mL CHARLES Final Vancomycin Susceptible 1 ug/mL CHARLES Final CULTURE ANAEROBE [[id number]] (Normal) Collected: 07/26/24 1320 Lab Status: Preliminary result Specimen: Microbiology from Synovial Fluid Updated: 07/27/24 1312 Culture Culture in progress CULTURE BLOOD [[id number]] (Abnormal) Collected: 07/25/24 2318 Lab Status: Final result Specimen: Blood Peripheral Updated: 07/28/24 1110 Culture Growth of Staphylococcus aureus methicillin-resistant (MRSA) Comment: Staphylococcus aureus methicillin-resistant (MRSA) detected by penicillin binding protein immunoassay. Contact precautions required. Conventional antibiotic susceptibility testing to follow. Gram Stain Gram-positive cocci in clusters Narrative: Methicillin-resistant Staphylococci (MRSA) are resistant to all currently available beta-lactam antibiotics with the exception of the newer cephalosporins with anti-MRSA activity. Contact precautionsrequired. Contact precautions required. Positive at 12 hours 7 minutes. Infectious disease consultation strongly recommended, where available. Refer to previously reported susceptibility testing, specimen number: [id number] CULTURE BLOOD [[id number]] (Abnormal) (Susceptibility) Collected: 07/25/242315 Lab Status: Final result Specimen: Blood Peripheral Updated: 07/28/24 1440 Culture Growth of Staphylococcus aureus methicillin-resistant (MRSA) Comment: Staphylococcus aureus methicillin-resistant (MRSA) detected by penicillin binding protein immunoassay. Contact precautions required. Conventional antibiotic susceptibility testing to follow. Gram Stain Gram-positive cocci in clusters Narrative: Methicillin-resistant Staphylococci (MRSA) are resistant to all currently available beta-lactam antibiotics with the exception of the newer cephalosporins with anti-MRSA activity. Contact precautionsrequired. Positive at 12 hours 50 minutes. Infectious disease consultation strongly recommended, where available. Susceptibility Staphylococcus aureus methicillin-resistant (MRSA) (1) Antibiotic Interpretation Microscan Method Status Oxacillin Resistant >=4 ug/mL CHARLES Final Vancomycin Susceptible 1 ug/mL CHARLES Final BCID PANEL [[id number]] (Abnormal) Collected: 07/25/242315 Lab Status: Final result Specimen: Blood Peripheral Updated: 07/26/24 1644 Staphylococcus aureus Detected MECA/C and MREJ (Methicillin-Resistance Gene) Detected Comment: Results indicate methicillin-resistant Staphylococcus aureus (MRSA). Methicillin resistance detected. Narrative: Blood Culture ID Panel performed by [employer] multiplex PCR. The Test panel includes: Gram Positive Bacteria: Enterococcus faecalis, Enterococcus faecium, Listeria monocytogenes, Staphylococcus (genus), Staphylococcus aureus, Staphylococcus epidermidis, Staphylococcus lugdunensis, Streptococcus (genus), Streptococcus agalactiae (Group B), Streptococcus pneumoniae, Streptococcus pyogenes (Group A). Gram Negative Bacteria: Acinetobacter baumannii complex, Bacteroides fragilis, Haemophilus influenzae, Neisseria meningitidis (encapsulated), Pseudomonas aeruginosa, Stenotrophomonas maltophilia, Enterobacterales (formerly Enterobacteriaceae family), Enterobacter cloacae complex, Escherichia coli, K lebsiella (formerly Enterobacter) aerogenes, Klebsiella oxytoca, Klebsiella pneumoniae group, Proteus (genus), Salmonella species, Serratia marcescens. YEAST: Larisa albicans, Larisa auris, Larisa glabrata, Larisa krusei, Larisa parapsilosis, Larisa tropicalis, Cryptococcus neoformans/gattii. Antimicrobial Resistance Genes: CTX-M (extended-spectrum beta-lactamase), IMP ([place] beta-lactamase), KPC (carbapenemase), mcr-1 (colistin resistance determinant) mecA/C (methicillin-resistance), mecA/C and MREJ (methicillin- resistance - MRSA), NDM ([place] hixmlmc-nocz-ismktxgdo), OXA-48-like ( oxacillinase beta-lactamase),Geo/B (vancomycin-resistance), VIM (Esther Intergrom-Encoded [place] beta-lactamase). Imaging & Studies: CT Chest Abdomen Pelvis W Cont Result Date: 07/27/2024 Impression: 1.A 2.9 cm right subscapularis abscess with adjacent osteomyelitis of the right humeralhead and septic arthritis. There is a surgical drain likely in the glenohumeral joint space. 2.An ill-defined fluid collection adjacent to the left humerus without a well-defined rim which may represent an early developing abscess versus phlegmon. 3.Cardiomegaly with pulmonary edema. 4.Dendriform pulmonary ossifications in the lung bases. > Dictated by Steve Haney DO (energy operations vice president). I, Arthur Avery MD have personally reviewed and interpreted this examination/study. > Interpreting Provider: Arthur Avery MD on 07/27/2024 5:19 PM XR Shoulder Right 2Vw or More Result Date: 07/26/2024 IMPRESSION: Osseous erosions of the humeral head and scapula, 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 Findings are further characterized outside hospital CT from 07/25/2024 ([facility] No acute fracture or dislocation. Partially imaged airspace opacity in the setting of the right lung. Recommend attention to dedicated chest radiograph. 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 Canales is a 33y/o female w/ PMH of DM2 (diagnosed at 17) c/b retinopathy and nephropathy, ESRD on HD TThS, HTN, HLD, RUE DVT, ACD, PVD c/b L AKA, HFpEF, prior L shoulder septic arthritis who presents for R shoulder pain subsequently diagnosed as septic arthritis. #ESRD on HD TThS - Volume status: Euvolemic - Lytes: K 4.3 - stable - Acid/Base: Bicarb 23- stable - Access; No current Access - RIJ removed 07/28 due to bacteremia - Last HD 07/27 - will plan on holding further HD until blood cultures are clear x 2 > 07/28 cultures pending - Would give Lokelma if K becomes > 5.5 - Recommend Lasix 40mg daily while HD is held - Low K diet and fluid restriction while HD is being held - Strict I&O's, daily weights, avoid nephrotoxic medications #BMD - Ca 8.2 - Phos 8.0 (high) - PTH 93 and VitD 12.3 (02/24) - Cont Renvela 800mg TID - Recommend VitD Supplementation #ACD - Hg 9.4 (baseline ~10) - NEELAM w/ HD - CTM and transfuse for Hg < 7. #DM2 c/b retinopathy #HTN - Management per primary #L Shoulder Osteomyelitis #L Shoulder Septic Arthritis #MRSA Bacteremia - On Vancomycin - ID following - TTE w/ EF 55%, G2DD, and no vegetations - MATT pending - CT CAP w/ w/ subscapularis abscess w/ adjacent osteo and L humeral fluid collection abscess vs phlegmon. - CT R foot w/ evidence of osteomyelitis- Vascular consulted and recommended amputation. Patient refused - Treatment per primary - RIJ Permcath removed 07/28 - Repeat cultures 07/28 pending Remainder of care per primary The above assessment and plan will be discussed with the attending. This note is not final until attested by attending physician. Lorin Reynolds MD Internal Medicine Resident [facility] 07/29/2024 11:33 AM Associated attestation - Aneta Lopez MD - 07/29/2024 7:35 PM CDT I have seen and examined the patient with house-staff on rounds I agree with the house-staff note with the additions/modificiations listed below. Plan for Permcath tomorrow if Bcx negative, if BCX still positive will plan for trialysis for HD needs over the weekend Aneta Lopez MD * Adolfo Browne MD - 07/29/2024 7:47 AM CDT Orthopaedic Trauma Surgery Daily Progress Note Name: Leeroy Canales Age: [age] year old Room: 641/01 Date Admitted: 07/25/2024 Interval History: Patient seen and examined on rounds this AM. No acute ortho events overnight. Pain is controlled. No new numbness or tingling. Labs CBC Recent Labs Component Name 07/29/24 0624 07/28/24 0702 07/27/24 0501 WBC 10.4 11.0* 11.7* HGB 9.4* 9.4* 9.0* HCT 30.1* 29.5* 28.7* PLTCOUNT 467* 388 339 BMP Recent Labs Component Name 07/29/24 0624 07/28/24 0702 07/27/24 0501 05/24/24 0625 03/02/24 0338 03/01/24 0310 02/29/24 0127 NA 137 136 132* - 137 135* 135* POTASSIUM 4.5 4.2 5.6* - 5.5* 4.9* 4.4 CL 100 102 105 - 102 106 104 CO2 23 24 16* - 25 21* 24 BUN 35* 29* 49* - 39* 28* 16 CREATININE 8.24* 6.64* 9.99* - 7.43* 5.80* 3.73* GLUCOSE 127* 190* 150* - 92 112 141* CALCIUM 8.2* 7.6* 7.7* - 8.8 8.8 8.3* MAGNESIUM - - - - 2.4 2.1 2.0 PHOS 8.0* 6.7* 7.7* - 7.3* 6.1* 4.1 - = values in this interval not displayed. Coags Recent Labs Component Name 07/25/24 2316 02/22/24 2214 04/26/23 0629 PT 15.3* 14.6 16.3* INR 1.2 1.2 1.3 PTT 30.3 - 29.8 Vitamin D Recent Labs Component Name 02/25/24 0110 [id number] 12.3* Vitals BP 124/70 (BP Location: Left arm, Patient Position: Lying) Pulse 80 Temp 99.4 ??F (37.4 ??C) (Axillary) Resp 16 Ht 1.702 m (5' 7 ) Wt 113.5 kg (250 lb 3.2 oz) SpO2 98% Temp (24hrs), Av.8 ??F (37.1 ??C), Min:98.4 ??F (36.9 ??C), Max:99.4 ??F (37.4 ??C) Physical Exam General appearance: Alert, cooperative, and no apparent distress Right upper extremity: Fires motor R/M/U/AIN/PIN, Sensation intact in R/M/U nerve distributions distally, extremity warm and well perfused. Assessment and Plan: Leeroy Canales is a 33 year old female with right shoulder septic arthritis Surgeries: - s/p: Irrigation debridement right shoulder with Dr. Chapman on 07/27 Plan: No additional planned orthopedic intervention HV x 1, will likely remain today Abx per ID Weight bearing status: right upper extremity: WBAT Diet: OK from ortho perspective Splints/Bracing/Drain: none PT/OT Current Dispo: Continue inpatient hospitalization Daily Reminders: Pain control per primary Recommend avoiding NSAIDs during the first 3 weeks after injury and surgery due to risk of delayed healing Sutures are dissolvable and will fall out on their own DVT Prophylaxis: In hospital: Heparin At discharge: Per primary, OK from Ortho perspective For questions, please contact Ortho Trauma APPs or send epic chat to [facility]. For urgent questions, please page Ortho Trauma service pager through [employer]. Patient will require follow up in the office with Dr. Chapman 2 week(s) after discharge. Ortho office staff to help arrange. Please notify Ortho Trauma [facility] when patient is ready for discharge. Contactinformation below: [facility] Office Schedulers: [phone], option 1 Adolfo Browne MD 07/29/2024 7:48 AM * Gia Chavira RN - 07/29/2024 3:44 AM CDT Patient alert and oriented x4 . Patient educated on the importance of assist with reposition / change of position in the bed. She is aware and verbalizes the importance of compliance with Q 2 hour repositions / change of position. Patient still declines and is non complaint with cares to include position changes. Will continue to monitor and educate patient . * Gia Chavira RN - 07/28/2024 10:52 PM CDT Problem: Pain/Discomfort Goal: Patient exhibits [...] in the flowsheet documentation) Outcome: Progressing Problem: Nutrient: Increased nutrient needs (specify) Goal: Total intake will meet estimated nutrient needs Outcome: Progressing Problem: Hemodynamic Status/Cardiac Output Goal: Patient has stable vital signs and fluid balance Outcome: Progressing Problem: Fluid and Electrolyte Imbalance Goal: Fluid and electrolyte balance are achieved/maintained Outcome: Progressing Problem: Balance Goal: LTG - Patient will demonstrate Intervention to enhance balance for safe completion of daily activities Outcome: Progressing * Kari Mckeon MD - 07/28/2024 5:32 PM CDT [facility] INTERNAL MEDICINE PROGRESS NOTE Patient: Leeroy Canales Sex: female Age: [age] year old Date of : 1990 Date of Admission: 07/25/2024 Date: 07/28/2024 LOS: 3 SUBJECTIVE Interval History: Patient continues to have R shoulder tenderness. Plan for today is for MATT and CT R foot to furtherassess for source of infection. Nephro plans to remove permcath today. Hospital Course: Leeroy Canales is a 33 year old y/o female with PMH of T2DM, ESRD on HD TTS, HTN, HLD, hx of RUE DVT, PVD, blindness, s/p L AKA, HFpEF, prior hx of infectious arthritis presenting from [facility] for 3 day history of right shoulder pain. Of note, patient had admission from 05/23-06/03 for infectious arthritis of L shoulder; pt states this pain feels exactly the same as her prior infection butin the opposite shoulder. Patient comes from a nursing facility where she was receiving rehab for prosthetic for LLE. At OSH labs revealed WBC 12.9k, Hb 10.3, plt 255; ESR 90, CRP 29.4; CMP remarkable for Na 131. Synovial fluid of R shoulder showing 92% neutrophils. Azithro, cefepime, vancomycin started at OSH. OSH imaging notable for the following: Shoulder x-ray showing mild osteoarthritis of acromioclavicular joint.Shoulder CT showing prominent erosive changes of the right humeral head and greater tuberosity, as well as the right coracoid process, prominent thickening of the shoulder capsul e, right shoulder effusion. CT chest abdomen pelvis showing bilateral pulmonary infiltrates suggesting bilateral pneumonia, cardiomegaly. At [facility], ortho and ortho ID consulted. Nephro consulted for inpatient HD. Ortho performed aspiration of R shoulder, fluid cultures growing heavy staph aureus. On 07/27/24, pt underwent arthrotomy, I&D, and synvectomy of R shoulder. BC from OSH and U growingMRSA. Started on vancomycin with dialysis on TTS. OBJECTIVE Vital Signs: Vitals: 07/27/24 1804 07/27/24 1841 07/28/24 0907 07/28/24 1235 BP: 139/76 144/77 125/70 123/75 Pulse: 84 86 81 81 Resp: 18 20 20 Temp: 98.4 ??F (36.9 ??C) 98.7 ??F (37.1 ??C) 98.5 ??F (36.9 ??C) SpO2: 100% 99% 96% Weight: Height: Temp Min: 97.6 ??F (36.4 ??C) Max: 100.7 ??F (38.2 ??C), Pulse Min: 72 Max: 87, Resp Min: 10 Max: 25, BP Min: 95/60 Max: 144/77 Intake & Output: In: 800 [P.O.:200; I.V.:600] Out: 1500 Physical Exam Constitutional: General: She is not in acute distress. Appearance: Normal appearance. HENT: Head: Normocephalic and atraumatic. Eyes: Comments: L eye appears cloudy Cardiovascular: Rate and Rhythm: Normal rate and regular rhythm. Pulses: Normal pulses. Heart sounds: No gallop. Comments: Systolic murmur Pulmonary: Effort: Pulmonary effort is normal. No respiratory distress. Breath sounds: No wheezing or rales. Abdominal: General: Abdomen is flat. There is no distension. Palpations: Abdomen is soft. Tenderness: There is no abdominal tenderness. Musculoskeletal: Cervical back: Tenderness present. Comments: L AKA site appears nonerythmatous, no swelling. R heel ulcer images in media tab. R heel ulcer appears erythematous, has decreased pain sensation. Pressure sensation intact. Skin: General: Skin is warm and dry. Comments: Black, discolored plaque to RLQ abdomen, measured to be 4-5cm. Check media tab. Neurological: General: No focal deficit present. Mental Status: She is alert. Current Medications: Scheduled: 0.9% NaCl 3 mL Intracatheter q8h ammonium lactate Topical BID carvedilol 12.5 mg Oral BID WC epoetin 5,000 Units Intravenous DIALYSIS TUE, BLUE, & SAT ferrous sulfate 325 mg Oral QDAY WITH BREAKFAST [START ON 07/29/2024] furosemide 40 mg Oral QDAY gabapentin 300 mg Oral MON, FRI AND FRI heparin 5,000 Units Subcutaneous q8h iopamidol Intravenous Contrast - Once iopamidol Intravenous Contrast - Once lisinopril 20 mg Oral QDAY renal vitamin 1 tablet Oral QDAY sevelamer carbonate 800 mg Oral TID WC vancomycin (VANCOCIN) IV dose per pharmacy Does not apply DIRECTED Continuous: PRN: SALINE LOCK, INSERT AND MAINTAIN AND 0.9% NaCl AND 0.9% NaCl acetaminophen dextrose IV for hypoglycemia OR dextrose IV for hypoglycemia OR glucagon glucose (Diabetic Use) gel heparin heparin HYDROmorphone oxyCODONE (immediate release) Significant Lab Results: Recent Labs Component Name 07/28/24 0702 12/03/22 0242 12/02/221954 WBC 11.0* - 42.0* HGB 9.4* - 8.9* HCT 29.5* - 28.3* PLTCOUNT 388 - 556* PLATELET - - Occasional* - = values in this interval not displayed. Recent Labs Component Name 07/28/24 0702 07/27/24 0501 07/26/24 0850 12/02/22 1955 08/25/22 0315 08/24/22 1404 08/24/22 0725 SODIUM - - - - 142 143 138 POTASSIUM 4.2 5.6* 5.3* - 3.6 3.7 5.2* CHLORIDE - - - - 107 103 110* CO2 24 16* 14* - 26 30 20* BUN 29* 49* 38* - 13 9 8 CREATININE 6.64* 9.99* 8.40* - 1.58* 1.43* 1.42* EGFR 8* 5* 6* - 45* 51* 51* GLUCOSE 190* 150* 161* - 211* 145* 165* CALCIUM 7.6* 7.7* 8.1* - 7.9* 8.2* 7.8* - = values in this interval not displayed. 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, with long-term current use of insulin (HCC) (POA: Yes) Hypoalbuminemia (POA: Yes) Septic arthritis of shoulder, right (HCC) (POA: Yes) Pneumonia of both lungs due to infectious organism, unspecified part of lung (POA: Yes) Acute pain of right shoulder (POA: Yes) Sepsis due to methicillin resistant Staphylococcus aureus (MRSA) (HCC) (POA: Yes) Dyslipidemia (POA: Yes) Obesity, Class II, BMI 35-39.9 (POA: Yes) Hyponatremia (POA: Yes) Hyperkalemia (POA: Yes) Hyperphosphatemia (POA: Yes) Hypocalcemia (POA: Yes) Chronic ulcer of right heel (HCC) (POA: Unknown) Leeroy Canales is a 33 y/oF with PMH septic arthritis of L shoulder, T2DM, ESRD on HD TTS, HTN, HLD, L AKA who presents with septic arthritis and osteomyelitis of R shoulder, now s/p I&D of R shoulder. Pt found to have MRSA bacteremia, currently treating with vancomycin (IV dosing per pharmacy) and assessing for source of infection. Nephro is removing HD permcath line today and will replace once they have 2 sets of neg Bcx. Patient is on vanc for MRSA bacteremia, plan is to check trough leveltmrw per pharmacy. CT CAP after I&D was showing L humeral fluid collection; ortho not to do anysurgical intervention, but IR consult may be warranted. Pt also has R foot ulcer, and CT R foot wasconcerning for osteomyelitis. Vasc surg consulted and recommending amputation but patient denied any intervention. #MRSA bacteremia #Septic arthritis of R shoulder #R shoulder osteomyelitis - OSH synovial fluild results showing cloudy, red fluid with 92% neutrophils, 2% lymphocytes, 6% macrophages; synovial RBC and nuc cells not performed - prior hx of L shoulder septic arthritis with similar symptoms - R shoulder XR concerning for osteomyelitis in setting of known pyogenic arthritis - Ortho performed aspiration of R shoulder on 07/26, aspirate growing heavy staph aureus - S/p I&D of R shoulder 07/27/24 - BC from OSH and [facility] growing heavy MRSA - CT CAP w/ contrast showing 2.9 cm right subscapularis abscess with adjacent osteomyelitis of the right humeral head and septic arthritis, ill-defined fluid collection adjacent to the left humerus without a well-defined rim PLAN: - Pending MATT - Ortho ID consulted, appreciate recs: Obtain 2 sets of BC every 24-48hrs until neg for >72hrs on 2 consecutive days Recommend MATT Continue IV vancomycin Recommending MRI cervical spine w/ w/o contrast (will hold off until next dialysis session) Cont to follow operative cultures until complete F/u R shoulder aspiration cultures from OSH Recommend removal of tunneled dialysis line Recommend venous doppler RUE for eval of RUE/DVT (ordered) CBC w/ diff, CMP vancomycin trough at least weekly while on IV abx Due for ESR, CRP on 08/01 (last one on 07/25) - Ortho consulted, appreciate recs: - S/p I&D of R shoulder #T2DM # ESRD on HD TTS - pt reports not taking any diabetes medications at home due to well-controlled A1c - last A1c 05/25/24: 6.2% - BG ranging btwn 150-190 as of 07/26 - HD done on 07/27; vanc not given during HD session then since trough lvl showed that patient was supratherapeutic PLAN: - Accuchecks TIDAC; no need for SSI at this time, will CTM - Nephrology consulted for HD management, appreciate recs: RIJ Permcath removed on 07/28 Dialysis today 07/27 then remove perm cath; will need 2 sets of neg Bcx before permcath can be replaced TTE If K > 5 after perm cath removal, pls start lokelma Restart home antihypertensives as tolerated in setting of sepsis would be cautious. Cont lasix after iHD session tmrw as pt with remain w/o dialysis until 2 neg cultures makes urine and diuretics to maintain euvolemia Low K diet - Continue home iron supplementrenvela 800mg TID, home gabapentin MWF, home renal vitamin -Home lasix 40mg po inc from MWF schedule to daily per nephro recs # Pulmonary infiltrates # Possible pneumonia - CT chest/abd/pelvis from OSH showing bilateral pulmonary infiltrates - patient with subjective fevers over past 2 weeks as well as temperature up to 100.7 this admission - patient with orthopnea - Procal elevated at 2.18 - BNP elevated at 380 - CXR 07/25: Mild bilateral interstitial opacities may represent mild interstitial edema and/or atypical infection - Pt denies chest pain, F/C/N/V/D today 07/25 PLAN: - Pt on vanc for R shoulder arthritis, will CTM #R heel osteomyelitis #PVD - Wound care nurse consulted, appreciate recs: Surgical Consult Betadine soaked gauze to wound bed, cover with ABD and wrap with kerlix. Heel offloading boot at all times. Ammonium lactate from base of toes to knees daily to intact skin for dry skin. - Vasc surg consulted, recommending amputation but no surgical intervention by patient decision # HTN # HLD # Anemia # HFpEF - last TTE 05/21 showing EF 74% with grade II diastolic dysfunction - continue home carvedilol 12.5 mg bid, lisinopril 20 mg daily Code: FULL Diet: NPO at midnight Electrolytes: Replete PRN PPx: heparin Access: PIV Dispo: Medicine The above assessment and plan will be discussed with the attending. This note is not final until attested by attending physician. Kari Mckeon MD Internal Medicine Resident [facility] 07/28/2024 5:32 PM Associated attestation - Geronimo Burleson MD - 07/29/2024 7:22 AM CDT I saw and examined Ms. Canales with the resident physician. I agree with the findings and care plan as documented by the resident physician. Nursing staff updated with changes to care plan. Updates to disposition plan discussed with social work and case management. Care plan discussed in person with infectious diseases consultants. 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, with long-term current use of insulin (HCC) (POA: Yes) Hypoalbuminemia (POA: Yes) Septic arthritis of shoulder, right (HCC) (POA: Yes) Pneumonia of both lungs due to infectious organism, unspecified part of lung (POA: Yes) Acute pain of right shoulder (POA: Yes) Sepsis due to methicillin resistant Staphylococcus aureus (MRSA) (HCC) (POA: Yes) Dyslipidemia (POA: Yes) Obesity, Class II, BMI 35-39.9 (POA: Yes) Hyponatremia (POA: Yes) Hyperkalemia (POA: Yes) Hyperphosphatemia (POA: Yes) Hypocalcemia (POA: Yes) Chronic ulcer of right heel (HCC) (POA: Unknown) Geronimo Burleson MD Hospitalist [employer] Super[employer] [facility] Signed: 07/29/2024 7:22 AM * Roxanna Roth PA-C - 07/28/2024 1:49 PM CDT Images from the original note were not included. [facility] Infectious Diseases Inpatient Progress Note Patient Name: Leeroy Canales 1990 Room: [facility] [place] Date of Admission: 07/25/2024 Date of Service: 07/28/2024 Primary Care Physician: CHERISE MARCELO PA-C Attending Physician: Geronimo Burleson,* Reason for Infectious Disease Consultation Recurrent septic arthritis IMPRESSION MRSA bacteremia Right shoulder pyogenic arthritis Right shoulder osteomyelitis Pneumonia Cervical spine pain Right heel ulcer, chronic ESRD on HD RECOMMENDATIONS - Continue with IV vancomycin - Please continue to obtain 2 sets of blood cultures every 24-48 hours until negative for > 72 hours on 2 consecutive days - Recommend MRI cervical spine wwo contrast - Recommend MATT with recurrent septic arthritis shoulder - Continue to follow operative cultures until complete - Recommend removal of tunneled dialysis line - Recommend venous doppler RUE for evaluation of thrombus / DVT - CT Chest / abd / pelvis with 2.9 cm abscess in right subscapularis, imaged after operative I&D. Recommend evaluation by IR vs. Ortho vs. Thoracic surgery for source control / aspiration. - Agree with vascular surgery consult for right heel wound; CT scan right foot w contrast - Please obtain CBC w diff, CMP, ESR, CRP, vancomycin trough at least weekly while on IV antibiotics. Please call the Ortho ID pager [phone] with any questions. Updated care plan discussed with Dr. Burleson at patient bedside. DISCUSSION Leeroy Canales is a 33 year old female with PMH of T2DM, ESRD on HD TTS, HTN, HLD,hx of RUE DVT, anemia, PVD, blindness, s/p L AKA, HFpEF, prior hx of infectious arthritis presenting as OSH transfer from [facility] for 3 day history of right shoulder pain. Recurrent MRSA bacteremia - 07/25: Bcx 2/2 MRSA - 07/26: Bcx 2/2 GPCs, pending speciation - Potential Sources: Dialysis catheter, shoulder septic arthritis, pneumonia, chronic right heel ulcer - Source control: - Recommend right tunneled dialysis catheter removal - s/p OR I&D right shoulder 07/27 - Right subscapularis abscess - Consult IR vs. Ortho vs. Thoracic surgery - Evaluation: - TTE negative for vegetations, Obtain MATT - Obtain MRI cervical spine wwo Contrast - venous doppler RUE - CT right foot w contrast - On IV vancomycin Right shoulder pyogenic arthritis Right shoulder osteomyelitis - OSH CT right shoulder: prominent erosive changes of the right humeral head and greater tuberosity, as well as the right coracoid process, prominent thickening of the shoulder capsule, right shoulder effusion - 07/25: OSH right shoulder aspiration, gram stain with GPC in clusters, cultures in process - 07/26: X-rays right shoulder concerning for osteomyelitis. - 07/26: Shoulder aspiration: Fluid with 219,660 nucleated cells, 97% neutrophils. Path - Acute inflammatory infiltrate, Intracellular microorganisms, minimal blood contamination. Cultures with MRSA - 07/27: OR for right shoulder I&D. Multiple purulent pockets. Cultures in progress. - 07/27: CT Chest abd pelvis with 2.9 cm subscapularis abscess with adjacent osteomyelitis of right humeral head and septic arthritis. Discuss source control with IR vs. Ortho vs. Thoracic surgery - On IV vancomycin Pneumonia - OSH CT CAP with bilateral pulmonary infiltrates suggesting bilateral pneumonia, cardiomegaly. - Repeat CT CAP 07/27 shows pulmonary edema. - On IV azithromycin from OSH. On IV vancomycin. Cervical spine pain - likely referred from right shoulder, however, Recommend MRI CSpine wwo contrast for evaluation ofosteomyelitis in the setting of MRSA bacteremia Chronic right heel ulcer - Tunnels to bone - CT right foot w contrast pending - appreciate vascular consult ESRD on HD - Tunneled dialysis catheter should be removed, replacement in different position once blood cultures clear. CDC Screening - Previous HIV and hepatitis C screening negative QTC: 452 (05/17/2024) Renal Function: Estimated Creatinine Clearance: 16 mL/min (A) (by C-G formula based on SCr of 6.64 mg/dL (H)). Hardware: None Thank you for for this interesting consult. We will continue to follow and monitor with you closely. Please call the [place] Therapist ID pager [phone] with any questions. I spent 35 mins in the care of this patient to include chart review, coordination of care, and patient interview / examination / education independent from the attending physician. I spent an additional 10 mins in discussion with attending physician Dr. Ramirez regarding patient case. Patient seen and examined, case discussed with ID attending. JESSICA Sorensen, PA-C Division of Infectious Diseases Contact: [employer] Secure Chat preferred ID Clinic ID Clinic Subjective History of Present Illness: Leeroy Canales is a 33 year old female with PMH of T2DM, ESRD on HD TTS, HTN, HLD, hx of RUE DVT, anemia, PVD, blindness, s/p L AKA, HFpEF, prior hx of infectious arthritis presenting as OSH transfer from [facility] for 3 day history of right shoulder pain. Patient reports that her neck started hurting about 1 week ago and her shoulder pain started 3 days prior to presenting to [facility]. Patient states that she felt right shoulder pain upon waking up one morning and it has progressed to become a 10/10, deep throbbing pain that she also feels in her upper arm. Pain is more severe on movement. Denies any trauma to the area. Also reports that for about two weeks, she has been experiencing cold sweats and fevers. Patient comes from a nursing facility ([facility]) where she was receiving rehab for prosthetic for LLE. At [facility] (OSH) labs revealed WBC 12.9k, Hb 10.3, plt 255; ESR 90, CRP 29.4; CMP remarkable for Na 131. Synovial fluid of R shoulder showing 92% neutrophils. Azithro, cefepime, vancomycin started at OSH. OSH imaging notable for the following: Shoulder x-ray showing mild osteoarthritis of acromioclavicular joint. Shoulder CT showing prominent erosive changes of the right humeral head and greater tuberosity, as well as the right coracoid process, prominent thickening of the shoulder capsule, right shoulder effusion CT chest abdomen pelvis showing bilateral pulmonary infiltrates suggesting bilateral pneumonia, cardiomegaly . Patient transferred to [facility] on 07/25/2024 for further evaluation of bilateral pneumonia and Right shoulder pyogenic arthritis. ID consulted for antibiotic management in the setting of recurrent pyogenic right shoulder. Patient reports tunneled dialysis line was placed in February 2024, has never been removed or replaced. Previous [facility] Hx: 04/26/2023 -05/09/2023: Presented for for foot osteomyelitis. Discharged with IV vancomycin, IV cefepime, PO flagyl. Discharge complicated by RUE DVT brachial vein causing readmission. Patient completedtherapy with doxycycline 100 mg BID, ciprofloxacin 750 mg BID, and flagyl 500 mg TID. EOT 06/07/2023. 02/22/2024 - 03/02/2024: Presented for MRSA bacteremia, left pectoralis abscess with concerns for osteomyelitis of left shoulder. Abscess near left shoulder aspiration by IR with 11 ml Pus, gram stain no organisms and culture no growth. Right shoulder aspirated with 4300 WBC (not concerning for septic arthritis per previous ID note. Patient treated with 6 weeks of antibiotics with EOT 04/07/2024 - was discharged on vancomycin and at some point transitioned to PO linezolid to complete treatment. 05/23/2024 - 06/03/2024: Presented to [facility] with left shoulder pain, found to have left shoulder septicbursitis, ?osteomyelitis. During this admission, blood cultures negative. OSH aspiration culture negative. [facility] shoulder aspiration culture negative. Synovial fluid with 6k nucleated cells, 83% neutrophils. MRI left shoulder consistent with septic bursitis but no osteomyelitis. Evaluated by rheumatology with no signs of inflammatory arthropathy. Treated with 4 weeks IV vancomycin, IV cefepime, EOT 06/21/2024. Hospital Course: 07/25: Bcx (2/2) +MRSA 07/26: Bcx (2/2) + GPCs, pending speciation 07/26: Right shoulder aspiration. 219,660 nucleated cells, 97% neutrophils. Path - Acute inflammatory infiltrate, Intracellular microorganisms, minimal blood contamination. GPCs on gram stain. Cultures in progress. 07/27: OR with ortho for I&D of right shoulder. Per op note: copious purulence noted in subdeltoid region, 85-90 mL evaluated from joint. Walled-off purulence identified from posterior aspect of humeral head as well as infraglenoid pouch. Purulence up and down bicipital tendon found. Cultures inprogress. 07/27: CT CAP - Pulmonary edema, right subscapularis abscess (2.9 cm) 07/28: TTE with no vegetations, obtain MATT if concerns for endocarditis 07/28: Vascular surgery recommends CT right foot w contrast for evaluation of right foot ulcer Interval history: 07/28/2024 (today): Continues to feel feverish and chilled. No nausea, vomiting, diarrhea, rashes, itching, shortness of breath, cough. Cervical pain almost resolved. Right shoulder pain present but slightly improved from yesterday. 07/26 Bcx with GPCs, pending speciation. WBC 11.0. Tolerating IV vancomycin 07/27/2024: Patient in HD. Continues to have fevers and chills. No nausea / vomiting / diarrhea / rashes / itching. Continues to have severe pain in right shoulder. Has some pain in the neck. No otherjoint pain. No shortness of breath / cough / difficulty breathing. Currently on IV vancomycin, IV cefepime, IV azithromycin. CT CAP w contrast completed today pending read. WBC 11.7, CRP 28.3, ESR 120. Creatinine 9.99, GFR 5. Medical History Past Medical History: Diagnosis Date [...] use: Denies history Marital status: Single Children: No Living situation: Resides at [place], [place] Travel Hx: no international travel Sick contacts: denies recent contacts HIV status: Negative 02/2024 Hepatitis Status: Negative 05/2024 Prosthetic / Implant History: None Immunizations: Immunization [...] Review of Systems Review of Systems Constitutional: Positive for chills, fever and malaise/fatigue. HENT: Negative. Eyes: Blind Respiratory: Negative. Cardiovascular: Negative. Gastrointestinal: Negative. Genitourinary: Negative. Musculoskeletal: Right shoulder pain, neck pain Skin: Negative for itching and rash. Chronic right heel ulcer Neurological: Negative. Endo/Heme/Allergies: Negative. Psychiatric/Behavioral: Negative. Allergies No Known Allergies Antimicrobial History Current Antibiotics IV vancomycin (07/26 - ) Prior Antibiotics At [facility] IV cefazolin (07/27) - intra-op IV cefepime (07/26 - 07/27) IV azithromycin (07/26 - 07/27 ) Prior Antibiotics at OSH Home Medications Prior to Admission medications Medication Sig Start Date End Date Taking? Authorizing Provider acetaminophen (Tylenol) 500 MG tablet Take 1 (one) tablet by mouth every 4 hours Maximum allowable Acetaminophen amount = 4 Grams (4000 mg) / 24 hours. 03/02/24 Yes Martine Morrissey MD Alcohol Swabs (Alcohol Prep) 70 % USE ONE SWAB TO CLEAN SKIN FOUR TIMES DAILY BEFORE TESTING 12/12/22Amanda Georges MD amLODIPine (Norvasc) 10 MG tablet Take 1 (one) tablet by mouth once daily 02/28/24 Yes Geronimo Burleson MD bisacodyl (Dulcolax) 10 MG suppository Insert 1 (one) suppository into the rectum once daily as needed for Constipation 02/28/24 Geronimo Burleson MD blood glucose (OneTouch Verio) test strip USE ONE STRIP TO TEST BLOOD SUGAR FOUR TIMES DAILY 12/12/22Yes Amanda Georges MD Blood Glucose Monitoring Suppl (OneTouch Verio Reflect) w/Device KIT Use 1 kit 4 times daily USE METER TO CHECK BLOOD GLUCOSE FOUR TIMES DAILY Reasons: CALL [facility] WHEN DELIVERING [id number] 12/12/22 Amanda Georges MD carvedilol (Coreg) 12.5 MG tablet Take 1 (one) tablet by mouth 2 times daily with morning and evening meal 12/12/22 Yes Rosi Menard V., [employer] FeroSul 325 (65 Fe) MG tablet Take 1 (one) tablet by mouth daily with breakfast 08/08/22 Yes ProviderRebel MD furosemide (Lasix) 40 MG tablet Take 1 (one) tablet by mouth every Friday, Friday & Friday05/23/23 Yes Willard Estrella MD gabapentin (Neurontin) 100 MG capsule Take 1 (one) capsule by mouth 3 times daily 12/27/22 Yes ProviderRebel MD insulin lispro (HumaLOG;ADMelog) 100 UNIT/ML pen Inject 0 (zero) Units to 6 (six) Units subcutaneously 3 times daily with meals Patient not taking: Reported on 07/26/2024 05/09/23 Joe Vargas MD Lancets (ONETOUCH DELICA PLUS 33G EXTRA FINE LANCET) USE ONE LANCET TO PRICK FINGER FOUR TIMES DAILY FOR BLOOD GLUCOSE TESTING 12/12/22 Amanda Georges MD lisinopril (Prinivil; Zestril) 20 MG tablet Take 1 (one) tablet by mouth once daily 02/29/24 Yes Geronimo Burleson MD melatonin 3 MG tablet Take 1 (one) tablet by mouth nightly as needed for Insomnia 05/09/23 Yes Joe Vargas MD nystatin (Mycostatin) 167478 UNIT/GM powder Apply to affected area 3 times daily 12/12/22 Yes Rosi Menard V., [employer] oxyCODONE, immediate release, (Roxicodone) 10 MG tablet Take 1 (one) tablet by mouth every 4 hours as needed 06/03/24 Yes Franck Hennessy MD polyethylene glycol 3350 (Miralax) 17 g packet Take 17 (seventeen) g by mouth once daily Patient not taking: Reported on 05/23/2024 02/28/24 Geronimo Burleson MD renal vitamin (Dialyvite) tablet Take 1 (one) tablet by mouth once daily 02/28/24 Geronimo Burleson MD senna (Senokot) 8.6 MG tablet Take 1 (one) tablet by mouth once daily 02/28/24 Geronimo Burleson MD sevelamer carbonate (Renvela) 800 MG Take 1 (one) tablet by mouth 3 times daily with meals 02/28/24 Geronimo Burleson MD Objective Vitals BP 123/75 (BP Location: Left arm, Patient Position: Sitting) Pulse 81 Temp 98.5 ??F (36.9 ??C) (Axillary) Resp 20 Ht 1.702 m (5' 7 ) Wt 113.5 kg (250 lb 3.2 oz) SpO2 96% Temp (24hrs), Av.3 ??F (36.8 ??C), Min:97.6 ??F (36.4 ??C), Max:98.7 ??F (37.1 ??C) Physical Exam PHYSICAL EXAM General: Alert, no distress, not toxic appearing, laying in bed, appears comfortable. Head: Normocephalic, atraumatic EENT: Blind, anicteric sclera. Nose Normal. No thrush. Dentition Fair. Neck: Supple Chest wall: No tenderness or deformity, right tunneled HD catheter present with no acute signs of infection Lungs: Clear to auscultation bilaterally, no wheezes, rales, rhonchi. Heart: RRR, S1, S2 normal, no murmur, gallops, or rubs. Abdomen: Soft, non-distended, non-tender, no organomegaly or masses. +BS Extremities: Left AKA. Right lower leg with edema and chronic venous changes, right heel ulcer, worse from previous admission. Right shoulder with post surgical dressing, drain with bloody output. Skin: No rashes. Neurologic: Alert and oriented x 3, moving all extremities Psychiatry: Appropriate mood/affect Lines: Right Tunneled IJ dialysis catheter, PIV left antecubital 07/28/2024: Right heel ulcer Lab Review CBC: Recent Labs Component Name 07/28/24 0702 07/27/24 0501 07/26/24 0850 WBC 11.0* 11.7* 11.9* RBC 3.24* 3.08* 3.38* HGB 9.4* 9.0* 9.7* HCT 29.5* 28.7* 31.6* MCV 91.0 93.2 93.5 BMP: Recent Labs Component Name 07/28/24 0702 07/27/24 0501 07/26/24 0850 05/25/24 0643 05/24/24 0625 02/23/24 0737 02/22/24 2214 06/10/23 0939 NA 136 132* 133* - 139 - 136 143 CL 102 105 108* - 104 - 100 110* CO2 24 16* 14* - 26 - 26 25 BUN 29* 49* 38* - 33* - 21 8 CREATININE 6.64* 9.99* 8.40* - 3.64* - 4.88* 1.96* ALB 1.7* 1.6* 1.8* - 1.9* - 1.5* 1.5* PROT - - - - 7.2 - 8.1 5.8* - = values in this interval not displayed. estimated creatinine clearance is 16 mL/min (A) (by C-G formula based on SCr of 6.64 mg/dL (H)). LFTs: Recent Labs Component Name 05/24/24 0625 02/22/24221306/10/23 0939 12/02/22 1955 08/25/22 0315 08/24/22 1404 08/24/22 0725 ALKPHOS 170* 221* 139 - - - - ALT 25 11 8 - - - - AST 14 7 12 - - - - ALBUMIN - - - - 2.0* 2.1* 1.7* - = values in this interval not displayed. Coagulation: Recent Labs Component Name 07/25/24231502/22/24221304/26/23 0629 PT 15.3* 14.6 16.3* INR 1.2 1.2 1.3 PTT 30.3 - 29.8 ESR: Recent Labs Component Name 07/25/24231505/24/24 0548 02/23/24 0737 ESR 120* 114* 116* CRP: Recent Labs Component Name 07/25/24231505/24/24 0625 02/23/24 0737 CRP 28.3* 1.4* 8.3* CK: No results for input(s): CK in the last 73487 hours. Microbiology, Imaging and other diagnostic tests MICROBIOLOGY: Blood culture: 07/25/2024: 2/2 MRSA 07/26/2024: 2/2 GPCs Right shoulder aspiration bedside 07/26/2024: Gram stain: Heavy PMNs, Light GPCs Culture: MRSA Fluid: 219,660 nucleated cells, 97% neutrophils. Path - Acute inflammatory infiltrate, Intracellular microorganisms, minimal blood contamination Right shoulder I&D OR 07/27/2024: Cultures in progress Other Serologies: 05/31/2024: Hepatitis C non-reactive 02/24/2024: HIV non-reactive HISTOPATHOLOGY: None at this admission IMAGING & PROCEDURES: Pertinent images independently reviewed; report in chart VENOUS DOPPLER RIGHT UPPER EXTREMITY - ORDERED CT FOOT RIGHT W CONTRAST 07/28/2024 - PENDING TRANSTHORACIC ECHO 07/28/2024 Summary * The left [...] CT CHEST ABDOMEN PELVIS W CONTRAST 07/27/2024 Impression: 1.A 2.9 cm right subscapularis abscess with adjacent osteomyelitis of the right humeral head and septic arthritis. There is a surgical drain likely in the glenohumeral joint space. 2.An ill-defined fluid collection adjacent to the left humerus without a well-defined rim which may represent an early developing abscess versus phlegmon. 3.Cardiomegaly with pulmonary edema. 4.Dendriform pulmonary ossifications in the lung bases Associated attestation - Yovany Ramirez MD - 07/28/2024 6:41 PM CDT ..I personally saw, examined, evaluated the patient. I reviewed the history, ROS, medications, data, laboratory data, diagnostic studies that are mentioned and documented in this note. I discussed the case, management and formulated the plan with the advanced practitioner. Patient with history of ESRD on HD, chronic R heel ulcer and recurrent joint infections on admission for: MRSA bacteremia Right shoulder pyogenic arthritis Right shoulder osteomyelitis -S/p I & D -Obtain repeat blood cultures;follow blood cultures -Continue IV Vancomycin -Obtain MATT -Dialysis catheter will need to be removed. -Obtain MRI cervical spine wwo contrast Yovany Ramirez MD MPH CWSP The total time spent today was 10 minutes performing chart prep, reviewing data and visit with the patient which was independent of the nurse practitioner. * Lorin Reynolds MD - 07/28/2024 12:37 PM CDT Images from the original note were not included. [facility] NEPHROLOGY PROGRESS NOTE Patient: Leeroy Canales Sex: female Age: [age] year old Date of : 1990 Date of Admission: 07/25/2024 Date: 07/27/2024 LOS: 2 SUBJECTIVE Interval History: - NAEON. Patient with significant pain this am in R shoulder after I&D yesterday with Ortho. CTnoted some concerns for osteo as well as abscess/phlegmon. TTE being done today - will likely need MATT. ID following. Hospital Course: Ms. Canales is a 33y/o female w/ PMH of DM2 (diagnosed at 17) c/b retinopathy and nephropathy, ESRD on HD TThS, HTN, HLD, RUE DVT, ACD, PVD c/b L AKA, HFpEF, prior L shoulder septic arthritis who presents for R shoulder pain subsequently diagnosed as septic arthritis. Upon admission to [facility] afebrile, HDS. Labs remarkable for BNP 380, K 4.7, CO2 18, Ca 8.3, P 6.5, Lactic wnl, WBC 13.0, Hg 9.5 (b ~10), ESR 120, CRP 28.3. Blood cultures 07/25 w/ MRSA. Ortho consulted due to concerns for septic arthritis- join aspiration w/ 219k nuc cells 97% Neutrophils diagnostic for septic arthritis. Fluid culture w/ MRSA. Started on Vancomycin. Underwent I&D w/ Ortho on 07/27. Subsequent CT CAP w/ subscapularis abscess w/ adjacent osteo and L humeral fluid collection abscess vs phlegmon. ID consulted given bacteremia- undergoing TTE and likely MATT as well as R heel chronic wound workup. Nephro consulted for HD and given bacteremia completed one session of HD w/ subsequent line removal until blood cultures negative. OBJECTIVE Vital Signs: Vitals: 07/27/24 1132 07/27/24 1145 07/27/24 1200 07/27/24 1210 BP: 95/60 101/59 100/61 102/59 Pulse: 73 73 72 73 Resp: Temp: 97.8 ??F (36.6 ??C) SpO2: 97% 97% 97% 97% Weight: Height: Temp Min: 97.8 ??F (36.6 ??C) Max: 100.7 ??F (38.2 ??C), Pulse Min: 72 Max: 87, Resp Min: 10 Max: 25, BP Min: 95/60 Max: 124/60 Intake & Output: In: 650.4 [P.O.:600; I.V.:50.4] Out: 0 Physical Exam: Physical Exam Constitutional: General: She is not in acute distress. Appearance: She is not toxic-appearing or diaphoretic. HENT: Head: Normocephalic. Right Ear: External ear normal. Left Ear: External ear normal. Nose: Nose normal. Mouth/Throat: Mouth: Mucous membranes are moist. Pharynx: Oropharynx is clear. Eyes: Extraocular Movements: Extraocular movements intact. Conjunctiva/sclera: Conjunctivae normal. Pupils: Pupils are equal, round, and reactive to light. Cardiovascular: Rate and Rhythm: Normal rate and regular rhythm. Pulses: Normal pulses. Heart sounds: Normal heart sounds. No murmur heard. Pulmonary: Effort: Pulmonary effort is normal. No respiratory distress. Breath sounds: Normal breath sounds. No wheezing. Comments: On 2L NC Abdominal: General: Abdomen is flat. Bowel sounds are normal. There is no distension. Palpations: Abdomen is soft. Tenderness: There is no abdominal tenderness. Musculoskeletal: General: Signs of injury present. Right lower leg: Edema present. Comments: LLE AKA. RLE w/ chronic ulceration on heel and chronic ulcerative skin changes of RLE. RUE in sling with limited ROM Skin: General: Skin is warm and dry. Coloration: Skin is not jaundiced. Findings: No bruising or lesion. Neurological: General: No focal deficit present. Mental Status: She is alert and oriented to person, place, and time. Psychiatric: Mood and Affect: Mood normal. Current Medications: Scheduled: 0.9% NaCl 3 mL Intracatheter q8h albuterol-ipratropium 3 mL Inhalation post-OP multiple azithromycin (Zithromax) IV 500 mg Intravenous q24h carvedilol 12.5 mg Oral BID WC cefepime 1 g Intravenous q24h diphenhydrAMINE 25 mg Intravenous post-OP multiple epoetin 5,000 Units Intravenous DIALYSIS FRI, FRI, & SAT ferrous sulfate 325 mg Oral QDAY WITH BREAKFAST furosemide 40 mg Oral MON, WED AND FRI gabapentin 300 mg Oral MON, WED AND FRI heparin 5,000 Units Subcutaneous q8h hydrALAZINE 5 mg Intravenous post-OP multiple iopamidol Intravenous Contrast - Once labetalol 5 mg Intravenous post-OP multiple lisinopril 20 mg Oral QDAY naloxone 0.04 mg Intravenous post-OP multiple renal vitamin 1 tablet Oral QDAY sevelamer carbonate 800 mg Oral TID WC vancomycin (VANCOCIN) IV dose per pharmacy Does not apply DIRECTED Continuous: PRN: SALINE LOCK, INSERT AND MAINTAIN AND 0.9% NaCl AND 0.9% NaCl acetaminophen dexAMETHasone dextrose IV for hypoglycemia OR dextrose IV for hypoglycemia OR glucagon fentaNYL (PF) fentaNYL (PF) glucose (Diabetic Use) gel heparin HYDROmorphone HYDROmorphone insulin aspart ondansetron oxyCODONE (immediate release) prochlorperazine throat lozenge Significant Lab Results: Results for orders placed or performed during the hospital encounter of 07/25/24 (from the past 24 hour(s)) GLUCOSE - POINT OF CARE Result Value Ref Range Glucose WB/POC 164 (H) 70 - 115 mg/dL Specimen Type Cap Fingerstick CBC W/O DIFFERENTIAL Result Value Ref Range WBC 11.0 (H) 4.0 - 10.7 x10E9/L RBC Count 3.24 (L) 3.90 - 5.20 x10E12/L Hemoglobin 9.4 (L) 11.9 - 15.8 g/dL Hematocrit 29.5 (L) 34.8 - 46.1 % MCV 91.0 80.0 - 98.0 fL MCH 29.0 26.7 - 33.6 pg MCHC 31.9 31.7 - 36.3 g/dL RDW-CV 13.5 11.3 - 14.8 % Platelet Count 388 150 - 420 x10E9/L MPV 9.4 7.8 - 11.4 fL RENAL FUNCTION PANEL Result Value Ref Range BUN 29 (H) 7 - 26 mg/dL Creatinine 6.64 (H) 0.56 - 0.96 mg/dL Sodium 136 136 - 145 mmol/L Potassium 4.2 3.5 - 4.5 mmol/L Chloride 102 98 - 107 mmol/L CO2 24 22 - 29 mmol/L Glucose 190 (H) 70 - 115 mg/dL Albumin 1.7 (L) 3.4 - 5.0 g/dL Calcium 7.6 (L) 8.4 - 10.2 mg/dL Phosphorus 6.7 (H) 2.9 - 5.1 mg/dL Anion Gap 10 6 - 16 BUN/Creatinine Ratio 4 (L) 7 - 23 Osmolality Calculated 293 275 - 295 mOsm/kg eGFR by CKD-EPI 8 (L) >=90 mL/min/1.73 m2 GLUCOSE - POINT OF CARE Result Value Ref Range Glucose WB/POC 198 (H) 70 - 115 mg/dL Specimen Type Cap Fingerstick ECHO COMPLETE Result Value Ref Range IVSd 2D 1.01 cm LVIDd 5.088 cm LVIDs 3.394 cm LVOT diam 1.909 cm LVPWd 0.856 cm LV biplane EF 54.845 % LV A2C EF 50.72 % LV A4C EF 58.185 % LV EDV A2C 93.656 ml LV EDV A4C 102.349 ml LV ESV A2C 46.154 ml LV ESV A4C 42.797 ml LVOT pk mariajose 121.038 cm/s LVOT VTI 25.161 cm RVIDd 3.136 cm RVOT pk mariajose 93.121 cm/s RVOT VTI 21.89 cm LA size 3.929 cm LA vol index 0.036 l/m? Myocardial strain charge 2 unitless LA vol BP 79.258 ml AV mn grad 6.612 mmHg AV pk mariajose 157.587 cm/s AV VTI 29.112 cm MV A pk mariajose 99.542 cm/s MV E pk mariajose 117.705 cm/s MV E' lateral mariajose 8.784 cm/s MV mn grad 2.753 mmHg MV VTI 27.837 cm PV pk mariajose 115.306 cm/s PV VTI 26.963 cm TAPSE 2.703 cm TR pk mariajose 218.016 cm/s Ascending aorta 2.397 cm IVC Diam Expiration 1.489 cm GLUCOSE - POINT OF CARE Result Value Ref Range Glucose WB/POC 186 (H) 70 - 115 mg/dL Specimen Type Cap Fingerstick Microbiology: Microbiology Results (Displays last 21 days for this encounter ONLY) Procedure Component Value - Date/Time CULTURE BLOOD [[id number]] Lab Status: No result Specimen: Blood Peripheral CULTURE BLOOD [[id number]] Lab Status: No result Specimen: Blood Peripheral CULTURE BLOOD [[id number]] Lab Status: No result Specimen: Blood Peripheral CULTURE ANAEROBE [[id number]] (Normal) Collected: 07/27/24 0911 Lab Status: Preliminary result Specimen: Microbiology from Synovial Fluid Updated: 07/28/24 0829 Culture Culture in progress CULTURE FUNGUS OTHER+FUNGUS SMEAR [[id number]] (Normal) Collected: 07/27/24 0911 Lab Status: Preliminary result Specimen: Microbiology from Synovial Fluid Updated: 07/28/24 1444 Culture Culture in progress Fungus Stain No yeast or hyphae seen CULTURE WOUND+GRAM STAIN [[id number]] Collected: 07/27/24 09 Lab Status: Preliminary result Specimen: Microbiology from Shoulder Updated: 07/27/24 1621 Gram Stain Light Polymorphonuclear cells No organisms seen CULTURE BLOOD [[id number]] (Abnormal) Collected: 07/26/24 2308 Lab Status: Preliminary result Specimen: Blood Peripheral Updated: 07/28/24 0012 Gram Stain Gram-positive cocci in clusters Narrative: Positive at 18 hours 59 minutes. CULTURE BLOOD [[id number]] (Abnormal) Collected: 07/26/24 2252 Lab Status: Preliminary result Specimen: Blood Peripheral Updated: 07/28/24 1432 Culture Growth of Staphylococcus aureus methicillin-resistant (MRSA) Comment: Staphylococcus aureus methicillin-resistant (MRSA) detected by penicillin binding protein immunoassay. Contact precautions required. Conventional antibiotic susceptibility testing to follow. Gram Stain Gram-positive cocci in clusters Narrative: Methicillin-resistant Staphylococci (MRSA) are resistant to all currently available beta-lactam antibiotics with the exception of the newer cephalosporins with anti-MRSA activity. Contact precautionsrequired. Positive at 15 hours 11 minutes. Refer to previously reported susceptibility testing, specimen number: [id number] Infectious disease consultation strongly recommended, where available. CULTURE FLUID+GRAM STAIN [[id number]] (Abnormal) (Susceptibility) Collected: 07/26/24 1320 Lab Status: Preliminary result Specimen: Other from Synovial Fluid Updated: 07/28/24 0632 Culture Heavy Staphylococcus aureus methicillin-resistant (MRSA) Gram Stain Heavy Polymorphonuclear cells Light Gram-positive cocci Narrative: Methicillin-resistant Staphylococci (MRSA) are resistant to all currently available beta-lactam antibiotics with the exception of the newer cephalosporins with anti-MRSA activity. Contact precautionsrequired. Susceptibility Staphylococcus aureus methicillin-resistant (MRSA) (1) Antibiotic Interpretation Microscan Method Status Clindamycin Susceptible 0.25 ug/mL CHARLES Final Doxycycline Susceptible <=0.5 ug/mL CHARLES Final Inducible Clindamycin Resistance Neg NEG ug/mL CHARLES Final Oxacillin Resistant >=4 ug/mL CHARLES Final Trimethoprim-sulfamethoxazole Resistant >=320 ug/mL CHARLES Final Vancomycin Susceptible 1 ug/mL CHARLES Final CULTURE ANAEROBE [[id number]] (Normal) Collected: 07/26/24 1320 Lab Status: Preliminary result Specimen: Microbiology from Synovial Fluid Updated: 07/27/24 1312 Culture Culture in progress CULTURE BLOOD [[id number]] (Abnormal) Collected: 07/25/24 2318 Lab Status: Final result Specimen: Blood Peripheral Updated: 07/28/24 1110 Culture Growth of Staphylococcus aureus methicillin-resistant (MRSA) Comment: Staphylococcus aureus methicillin-resistant (MRSA) detected by penicillin binding protein immunoassay. Contact precautions required. Conventional antibiotic susceptibility testing to follow. Gram Stain Gram-positive cocci in clusters Narrative: Methicillin-resistant Staphylococci (MRSA) are resistant to all currently available beta-lactam antibiotics with the exception of the newer cephalosporins with anti-MRSA activity. Contact precautionsrequired. Contact precautions required. Positive at 12 hours 7 minutes. Infectious disease consultation strongly recommended, where available. Refer to previously reported susceptibility testing, specimen number: [id number] CULTURE BLOOD [[id number]] (Abnormal) (Susceptibility) Collected: 07/25/24 2316 Lab Status: Final result Specimen: Blood Peripheral Updated: 07/28/24 1440 Culture Growth of Staphylococcus aureus methicillin-resistant (MRSA) Comment: Staphylococcus aureus methicillin-resistant (MRSA) detected by penicillin binding protein immunoassay. Contact precautions required. Conventional antibiotic susceptibility testing to follow. Gram Stain Gram-positive cocci in clusters Narrative: Methicillin-resistant Staphylococci (MRSA) are resistant to all currently available beta-lactam antibiotics with the exception of the newer cephalosporins with anti-MRSA activity. Contact precautionsrequired. Positive at 12 hours 50 minutes. Infectious disease consultation strongly recommended, where available. Susceptibility Staphylococcus aureus methicillin-resistant (MRSA) (1) Antibiotic Interpretation Microscan Method Status Oxacillin Resistant >=4 ug/mL CHARLES Final Vancomycin Susceptible 1 ug/mL CHARLES Final BCID PANEL [[id number]] (Abnormal) Collected: 07/25/24 2316 Lab Status: Final result Specimen: Blood Peripheral Updated: 07/26/24 1644 Staphylococcus aureus Detected MECA/C and MREJ (Methicillin-Resistance Gene) Detected Comment: Results indicate methicillin-resistant Staphylococcus aureus (MRSA). Methicillin resistance detected. Narrative: Blood Culture ID Panel performed by [employer] multiplex PCR. The Test panel includes: Gram Positive Bacteria: Enterococcus faecalis, Enterococcus faecium, Listeria monocytogenes, Staphylococcus (genus), Staphylococcus aureus, Staphylococcus epidermidis, Staphylococcus lugdunensis, Streptococcus (genus), Streptococcus agalactiae (Group B), Streptococcus pneumoniae, Streptococcus pyogenes (Group A). Gram Negative Bacteria: Acinetobacter baumannii complex, Bacteroides fragilis, Haemophilus influenzae, Neisseria meningitidis (encapsulated), Pseudomonas aeruginosa, Stenotrophomonas maltophilia, Enterobacterales (formerly Enterobacteriaceae family), Enterobacter cloacae complex, Escherichia coli, K lebsiella (formerly Enterobacter) aerogenes, Klebsiella oxytoca, Klebsiella pneumoniae group, Proteus (genus), Salmonella species, Serratia marcescens. YEAST: Larisa albicans, Larisa auris, Larisa glabrata, Larisa krusei, Larisa parapsilosis, Larisa tropicalis, Cryptococcus neoformans/gattii. Antimicrobial Resistance Genes: CTX-M (extended-spectrum beta-lactamase), IMP ([place] beta-lactamase), KPC (carbapenemase), mcr-1 (colistin resistance determinant) mecA/C (methicillin-resistance), mecA/C and MREJ (methicillin- resistance - MRSA), NDM ([place] yegfnys-lizt-bgxidbftx), OXA-48-like (oxacillinase beta-lactamase),Geo/B (vancomycin-resistance), VIM (Esther Intergrom-Encoded Metallobeta-lactamase). Imaging & Studies: CT Chest Abdomen Pelvis W Cont Result Date: 07/27/2024 Impression: 1.A 2.9 cm right subscapularis abscess with adjacent osteomyelitis of the right humeralhead and septic arthritis. There is a surgical drain likely in the glenohumeral joint space. 2.An ill-defined fluid collection adjacent to the left humerus without a well-defined rim which may represent an early developing abscess versus phlegmon. 3.Cardiomegaly with pulmonary edema. 4.Dendriform pulmonary ossifications in the lung bases. > Dictated by Steve Haney DO (energy operations vice president). I, Arthur Avery MD have personally reviewed and interpreted this examination/study. > Interpreting Provider: Arthur Avery MD on 07/27/2024 5:19 PM XR Shoulder Right 2Vw or More Result Date: 07/26/2024 IMPRESSION: Osseous erosions of the humeral head and scapula, 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 Findings are further characterized outside hospital CT from 07/25/2024 ([facility] No acute fracture or dislocation. Partially imaged airspace opacity in the setting of the right lung. Recommend attention to dedicated chest radiograph. 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 Canales is a 33y/o female w/ PMH of DM2 (diagnosed at 17) c/b retinopathy and nephropathy, ESRD on HD TThS, HTN, HLD, RUE DVT, ACD, PVD c/b L AKA, HFpEF, prior L shoulder septic arthritis who presents for R shoulder pain subsequently diagnosed as septic arthritis. #ESRD on HD TThS - Volume status: Euvolemic - Lytes: K 4.2 - stable - Acid/Base: Bicarb 24 - Access; RIJ Permcath last exchanged 02/2024 due to bacteremia - HD session yesterday- will plan on holding further HD until blood cultures are clear x 2 - Will Remove RIJ Permcath today and will not place new catheter until blood cultures negative x 2. - Would give Lokelma if K becomes > 5.5 - Recommend Lasix 40mg daily while HD is held - Low K diet and fluid restriction while HD is being held #BMD - Ca 7.6 - Phos 6.7 (high) - PTH 93 and VitD 12.3 (02/24) - Cont Renvela 800mg TID - Recommend VitD Supplementation #ACD - Hg 9.4 (baseline ~10) - NEELAM w/ HD - CTM and transfuse for Hg < 7. #DM2 c/b retinopathy #HTN - Management per primary #L Shoulder Osteomyelitis #L Shoulder Septic Arthritis #MRSA Bacteremia - On Vancomycin - ID following - TTE and likely MATT pending - CT CAP w/ w/ subscapularis abscess w/ adjacent osteo and L humeral fluid collection abscess vs phlegmon. - Treatment per primary - RIJ Permcath removal today Remainder of care per primary The above assessment and plan will be discussed with the attending. This note is not final until attested by attending physician. Lorin Reynolds MD Internal Medicine Resident [facility] 07/27/2024 12:37 PM Associated attestation - Aneta Lopez MD - 07/28/2024 4:12 PM CDT I have seen and examined the patient with house-staff on rounds. I agree with the house-staff note and plan as documented below Aneta Lopez MD * Del Knott RN - 07/28/2024 12:26 PM CDT Call received from Rose at [facility] with updated culture results : 07/25 blood cx positive mrsa 07/25 synovial fluid from R shoulder gram positive cocci * Del Knott RN - 07/28/2024 12:15 PM CDT Problem: Pain/Discomfort Goal: Patient exhibits [...] in the flowsheet documentation) Outcome: Progressing Problem: Nutrient: Increased nutrient needs (specify) Goal: Total intake will meet estimated nutrient needs Outcome: Progressing Problem: Hemodynamic Status/Cardiac Output Goal: Patient has stable vital signs and fluid balance Outcome: Progressing Problem: Fluid and Electrolyte Imbalance Goal: Fluid and electrolyte balance are achieved/maintained Outcome: Progressing Problem: Infection Goal: Signs and symptoms of infections are decreased or avoided Outcome: Progressing * Mari Scrugsg RN - 07/28/2024 12:09 PM CDT Care Coordination Progress Note Expected Discharge Date: 08/02/2024: Discharge Plan: [facility] Barriers: Per MDRs MATT today: IV atb at discharge may be given at HD tbd. Family Support (Name and Phone): Extended Emergency Contact Information Primary Emergency Contact: Silvia Resendiz Mobile Relation: Mother Clerical Coordinator needed? No Secondary Emergency Contact: GAYE BEAL Mobile Relation: Sister Clerical Coordinator needed? No Transportation at Discharge: ambulance: READMISSION RISK SCORE is 24 at 12:09 PM 07/28/2024.: Name: Mari Scruggs RN * Del Knott RN - 07/28/2024 11:53 AM CDT Per seed laboratory assistant - it is medically necessary for this pt to have blood cultures collected * Masha Finley RN - 07/28/2024 11:42 AM CDT Images from the original note were not included. WOUND OSTOMY NURSE CONSULT NOTE Leeroy Canales is an 33 year old femalewho has leg wound . This consultation was requested by MD Kai. History Social History Substance and Sexual Activity [...] FOUR TIMES DAILY BEFORE TESTING 100 Each PRN amLODIPine (Norvasc) 10 MG tablet Take 1 (one) tablet by mouth once daily bisacodyl (Dulcolax) 10 MG suppository Insert 1 (one) suppository into the rectum once daily as needed for Constipation blood glucose (OneTouch Verio) test strip USE ONE STRIP TO TEST BLOOD SUGAR FOUR TIMES DAILY 100 strip PRN Blood Glucose Monitoring Suppl (OneTouch Verio Reflect) w/Device KIT Use 1 kit 4 times daily USE METER TO CHECK BLOOD GLUCOSE FOUR TIMES DAILY Reasons: CALL [facility] WHEN DELIVERING X4364 1 kit 0 carvedilol (Coreg) 12.5 MG tablet Take 1 (one) tablet by mouth 2 times daily with morning and evening meal FeroSul 325 (65 Fe) MG tablet Take 1 (one) tablet by mouth daily with breakfast furosemide (Lasix) 40 MG tablet Take 1 (one) tablet by mouth every Friday, Friday & Friday 0 gabapentin (Neurontin) 100 MG capsule Take 1 (one) capsule by mouth 3 times daily insulin lispro (HumaLOG;ADMelog) 100 UNIT/ML pen Inject 0 (zero) Units to 6 (six) Units subcutaneously 3 times daily with meals (Patient not taking: Reported on 07/26/2024) Lancets (ONETOUCH DELICA PLUS 33G EXTRA FINE LANCET) USE ONE LANCET TO PRICK FINGER FOUR TIMES DAILY FOR BLOOD GLUCOSE TESTING 100 Each PRN lisinopril (Prinivil; Zestril) 20 MG tablet Take 1 (one) tablet by mouth once daily melatonin 3 MG tablet Take 1 (one) tablet by mouth nightly as needed for Insomnia nystatin (Mycostatin) 211692 UNIT/GM powder Apply to affected area 3 times daily oxyCODONE, immediate release, (Roxicodone) 10 MG tablet Take 1 (one) tablet by mouth every 4 hours as needed polyethylene glycol 3350 (Miralax) 17 g packet Take 17 (seventeen) g by mouth once daily (Patient not taking: Reported on 05/23/2024) renal vitamin (Dialyvite) tablet Take 1 (one) tablet by mouth once daily senna (Senokot) 8.6 MG tablet Take 1 (one) tablet by mouth once daily sevelamer carbonate (Renvela) 800 MG Take 1 (one) tablet by mouth 3 times daily with meals Data Review: Chemistry: Lab results smartLinks are not currently available CBC: Lab results smartLinks are not currently available Assessment Vitals: 07/27/24 1800 07/27/24 1804 07/27/24 1841 07/28/24 0907 BP: 139/76 139/76 144/77 125/70 Pulse: 84 84 86 81 Resp: 18 18 20 20 Temp: 98.4 ??F (36.9 ??C) 98.7 ??F (37.1 ??C) SpO2: 100% 99% Weight: Height: Pt seen at the bedside with Dr Burleson and Green team. Dressing with strikethrough drainage was removed. Malodorous wound is present to plantar heel. There is circumferential underminin07/28/24 1053 Other Wound Plantar;Right Date/Time: 07/25/24 0410 Present on admission?: Yes Orientation: Plantar;Right Wound Image Wound Bed Assessment Pale/Non-granular;Odorous;Slough Wound Margin Undefined edges Nicole-wound Skin Assessment Boggy Exudate Description Large;Serosanguinous;Purulent Dressing/Treatment Cleansed;Foam dressing Pain Assessment Pain Location #1 Pain Scale/Observation: Numeric (0-10) Pain Rating Score #1: 9 Sedation Level #1: S-Sleeping, easy to arouse Goal Numeric Pain Scale: 3 Functional Goal: Walk with improved pain control;Participate in ADLs;Ability to eat/drink;Ability to adequately rest Functional Goal Met?: No Pain Location : Arm Pain Orientation: Right Pain Quality: Throbbing Aggravating Factors: Activity;Movement Relieved By: Medications Pain Intervention(s): Medication (see MAR) Non-pharmacological interventions: Rest Behaviors/Assumed Pain Present : Restlessness Additional pain sites?: No Bhavin Score Bhavin Scale - Adult Sensory Perception: Slightly Limited Moisture: Rarely Moist Activity: Chairfast Mobility: Slightly Limited Nutrition: Probably Inadequate Friction and Shear: No Apparent Problem Total Score: 17 Recommendations: Surgical Consult Betadine soaked gauze to wound bed, cover with ABD and wrap with kerlix. Heel offloading boot at all times. Ammonium lactate from base of toes to knees daily to intact skin for dry skin. Above discussed with team. Masha Finley RN * Sharifa Guaman, PT - 07/28/2024 11:38 AM CDT [facility] Physical Medicine and Rehabilitation Physical Therapy Initial Evaluation Note Patient: Leeroy Canales Med Record Number: [id number] Date of : 1990 Age: [age] year old Co-evaluation this date due to unknown level of assist. In addtion, patient anxious and indicated she wanted 2 people present Recommendations: No equipment needs at discharge Discharge PT Discharge Recommendations: Patient would benefit from multidisciplinary therapy In addition to the 1:1 evaluation of the patient, additional eval time was spent completing the chart review prior to the assessment, completing the multidisciplinary plan of care and education plan post evaluation and communicating results of the eval to other treatment team members. Patient is not ambulatory at this time. OT contacted regarding patient status and/or discharge plan. 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 (HCC) PTSD (post-traumatic stress disorder) CHF (congestive heart failure) ([facility]) Left foot infection Hypoxia Essential hypertension Swelling of left foot MRSA bacteremia S/P AKA (above knee amputation) unilateral, left ([facility]) 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 ([facility]) Anemia Acute on chronic congestive heart failure, unspecified heart failure type ([facility]) Swelling of right upper extremity Thrombophlebitis 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 ([facility]) ESRD (end stage renal disease) ([facility]) 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, with long-term current use of insulin ([facility]) Insomnia Abscess of left shoulder Leukocytosis Hypoalbuminemia Osteomyelitis of left shoulder, unspecified type ([facility]) Septic arthritis of shoulder, right ([facility]) Pneumonia of both lungs due to infectious organism, unspecified part of lung Acute pain of right shoulder Sepsis due to methicillin resistant Staphylococcus aureus (MRSA) ([facility]) Dyslipidemia Obesity, Class II, BMI 35-39.9 Hyponatremia Hyperkalemia Hyperphosphatemia Hypocalcemia Chronic ulcer of right heel ([facility]) Past Medical History: Diagnosis Date Essential (primary) hypertension Heart failure ([facility]) Type 2 diabetes mellitus without complications ([facility]) SUBJECTIVE: With encouragement, patient agreed to sit EOB, but I don't wanna get up in the chair. PATIENT GOALS: none stated Home Situation: Type of Residence: Apartment Living arrangement: Family Members (sister) Steps to Enter: Other (Comment) (12) Ramp: (12) Handrails: Indoor Home Structure: Other (Comment) Equipment at Home: Wheelchair Prior Level of Functioning: Prior Level of Function Mobility: Transfers Only- Pt indicates she was independent with transfers in/out of w/c without theneed for removing Have Help at Home?: Yes, there is help at home now Vision: Significant impairment in the right eye;Significant impairment in the left eye Pain Assessment: Patient did not rate R shoulder pain OBJECTIVE: At start of therapy session, patient found in in bed. General Appearance: pt appears lethargic, R UE in sling, L AKA LDAs: peripheral IV Edema: Vitals: (*Assess the 3 levels of oxygen saturations both for room air and 02 unless rest on room air is 88% or less). Rest BP: HR: Sp02 Sp02 Room Air L O2 Ex/Gait/Activity Without 02 BP: HR: Sp02 Room Air Ex/Gait/Activity With 02 BP: HR: Sp02 L O2 Post Activity BP: HR: Sp02 Sp02 L O2 Room Air Observations: No adverse symptoms reported by patient Mental Status/Cognition: Level of Consciousness-Adult: Alert;Eyes Open Spontaneously Orientation Level: Oriented X4 Cognition: Follows Commands-Consistent ROM: WFL R LE and L hip Strength: RLE:hip flexion 4-/5, quads and ankle DF/PF 5/5 LLE: hip NT, but able to lift against gravity Tone: RLE: no abnormal tone noted LLE: no abnormal tone noted Coordination: RLE: WNL LLE: WNL Sensation: RLE: no complaints of numbness or tingling LLE: no complaints of numbness or tingling Mobility: A gait belt and non-slip socks were used for all out of bed activity this date. Bed Mobility: Rolling: Modified [place] Supine to Sit: Stand By Assist with HOB in semi-fowlers position Sit to Supine: Stand By Assist Transfers: Bed to Chair: Declined Mobility: Weight Bearing Status: (WBAT R UE (in ortho progress note), but pt in sling) Distance Ambulated (ft): (NA- hasn't walked in a year) Pivot down EOB w/stand by assist, WB through R LE and L UE only Balance: Balance Scales/Tests Used: Sitting: Static/Dynamic Sitting - Static: Good Sitting - Dynamic: Good ACTIVITY TOLERANCE: Patient's activity tolerance: good TREATMENT/INTERVENTIONS: evaluation, bed mobility training, and pre transfer training (scooting down EOB) Modified Rashawn: AM-PAC 6 Clicks Mobility Raw Score:: 13 EDUCATION: While performing PT, patient was instructed in:functional mobility training, safety awareness/fall precautions , discharge planning, use of call light Presented to patient who demonstrates Good understanding of instructions given. INFORMED CONSENT TO TREATMENT: Plan of care including recommended therapy, goals and frequency, discussed with patient who understands and agrees to proceed. ASSESSMENT: Patient would benefit from additional Physical Therapy sessions to achieve the following functionalgoals to enhance independence. Short Term Goals: Goal Formation With patient Patient will perform bed mobility with modified independence Patient will transfer bed to/from chair with stand by assist Patient to perform supine to/from sit independently. Fpc Goal(s): Return to SNF with ongoing therapy Equipment Issued: gait belt Plan: Transfer training Balance training If patient is discharged from the facility, this note serves as a discharge summary if further physical therapy visits did not occur. Refer to filed flowsheet for further details. Following therapy session, patient left in bed. * Heather Christopher, OT - 07/28/2024 11:01 AM CDT [facility] Physical Medicine and Rehabilitation Occupational Therapy Initial Evaluation Note Partial co-eval with PT 2/2 unknown level of assist, patient participation Patient: Leeroy Canales Med Record Number: [id number] Date of : 1990 Age: [age] year old PPE worn by staff: gown - disposable;gloves PPE worn by patient: gown - patient, clean;socks - clean Tech: No Recommendations: Discharge OT Discharge Recommendations: Patient would benefit from multidisciplinary therapy This recommendation is made due to ongoing OT functional needs: address functional deficits In addition to the 1:1 evaluation of the patient, additional eval time was spent completing the chart review prior to the assessment, completing the multidisciplinary plan of care and education plan post evaluation and communicating results of the eval to other treatment team members. Nurse and Physical Therapist contacted regarding patient status and/or discharge plan. 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 ([facility]) PTSD (post-traumatic stress disorder) CHF (congestive heart failure) ([facility]) Left foot infection Hypoxia Essential hypertension Swelling of left foot MRSA bacteremia S/P AKA (above knee amputation) unilateral, left ([facility]) 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 ([facility]) Anemia Acute on chronic congestive heart failure, unspecified heart failure type ([facility]) Swelling of right upper extremity Thrombophlebitis 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 ([facility]) ESRD (end stage renal disease) ([facility]) 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, with long-term current use of insulin ([facility]) Insomnia Abscess of left shoulder Leukocytosis Hypoalbuminemia Osteomyelitis of left shoulder, unspecified type ([facility]) Septic arthritis of shoulder, right ([facility]) Pneumonia of both lungs due to infectious organism, unspecified part of lung Acute pain of right shoulder Sepsis due to methicillin resistant Staphylococcus aureus (MRSA) ([facility]) Dyslipidemia Obesity, Class II, BMI 35-39.9 Hyponatremia Hyperkalemia Hyperphosphatemia Hypocalcemia Chronic ulcer of right heel ([facility]) Past Medical History: Diagnosis Date Essential (primary) hypertension Heart failure ([facility]) Type 2 diabetes mellitus without complications ([facility]) SUBJECTIVE: Subjective: Pt agreeable to therapy evaluation with significant education PATIENT GOALS: Patient's Primary Concern: to talk to her sister Home Situation: Type of Residence: Apartment (ad[facility]) Equipment at Home: Wheelchair Prior Level of Functioning: Mobility: Transfers Only Have Help at Home?: Yes, there is help at home now Who assists you at home?: Staff How often is assistance provided?: daily Vision: Significant impairment in the right eye;Significant impairment in the left eye Pain Assessment: Pain Location #1 Pain Scale/Observation: Numeric (0-10) Pain Rating Score #1: 8 ( But I'm okay ) Pain Location : Shoulder;Incisional Pain Orientation: Right Pain Intervention(s): Non-pharmacological Non-pharmacological interventions: Reposition;Distraction;Education OBJECTIVE: At start of therapy session, patient found in bed General Appearance: resting, lethargic, RUE in sling, L AKA LDA: Floor: IVs: Peripheral line Edema: No edema noted Vitals: (*Assess the 3 levels of oxygen saturations both for room air and 02 unless rest on room air is 88% or less). Rest BP: HR: Sp02 Sp02 99% 97% 2L RA Ex/Gait/Activity Without 02 BP: HR: Sp02 95% RA Ex/Gait/Activity With 02 BP: HR: Sp02 Post Activity BP: HR: Sp02 Sp02 97% RA Observations: No c/o dizziness or SOB throughout. Mental Status/Cognition: Level of Consciousness-Adult: Alert;Eyes Open Spontaneously Orientation Level: Oriented X4 Cognition: Follows Commands-Consistent UE ROM: RUE: AROM WFL except L shoulder - PROM to ~30 degrees until pt resisting 2/2 pain LUE: AROM WFL Strength: RUE: not tested 2/2 pain LUE: WFL UE Tone RUE: no abnormal tone noted LUE: no abnormal tone noted Coordination: intact serial opposition for bilateral hands UE Sensation RUE: intact, no complaints of numbness or tingling LUE: intact, no complaints of numbness or tingling Mobility: A gait belt and non-slip socks were used for all out of bed activity this date. Bed Mobility: Rolling: Modified [place] Supine to Sit: Stand By Assist with HOB in semi-fowlers position Sit to Supine: Stand By Assist Transfers: Bed to Chair: Declined Functional Ambulation: Patient declined to attempt transfer to chair. Balance: Balance Scales/Tests Used: Sitting: Static/Dynamic Sitting - Static: Good Sitting - Dynamic: Good Activities of Daily Living Upper Body Dressing: Maximal Assistance (to manage R sling) Lower Body Dressing: Maximal Assistance (to don sock) Splint Issued/Checked: none Pt educated to scapular rolls, scapular elevation, and AAROM to R shoulder. Pt reports understanding, but will require reinforcement. ACTIVITY TOLERANCE: Activity Tolerance: Requires rest breaks Modified Rashawn: AM-PAC 6 Clicks Daily Activity Raw Score:: 16 TREATMENT / EDUCATION / INTERVENTIONS: While performing OT, Patient was instructed in:functional mobility training, self-care training, weight bearing status, safety awareness/fall precautions , homeexercise program, use of adaptive equipment, discharge planning, use of call light Presented to patient who demonstrates Fair understanding of instructions given. INFORMED CONSENT TO TREATMENT: Plan of care including recommended therapy, goals and frequency, discussed with patient who understands and agrees to proceed. ASSESSMENT: Functional performance limited due to: limited activities of daily living, pain, decreased functional mobility, decreased functional balance, decreased safety awareness, upper extremity functional impairments, and decreased endurance and activity tolerance. Patient continues to benefit from skilledOccupational Therapy to achieve the following functional goals. Equipment Issued: gait belt. Short Term Goals: Goal Formation With patient Patient will perform home exercise program independently Patient will perform upper extremity dressing independently Patient will transfer to bedside commode with minimal assist Patient will tolerate treatment 25 minutes and with fair+ endurance Patient will demonstrate good understanding of safety education, HEP education, and adaptive equipment Carpet Weaver Goal(s): Patient to discharge to appropriate next level of inpatient care. Plan: Patient continues to benefit from skilled therapy services. If patient is discharged from the facility, this note serves as a discharge summary if further occupational therapy visits did not occur. Refer to filed flowsheet for further details. Following therapy session, patient left in bed, with call light within reach, with therapy cues visible on white board, all lines/tubes intact. * Jeanna Garcia - 07/28/2024 7:01 AM CDT [facility] INTERNAL MEDICINE PROGRESS NOTE Patient: Leeroy Canales Sex: female Age: [age] year old Date of : 1990 Date of Admission: 07/25/2024 Date: 07/28/2024 LOS: 3 SUBJECTIVE Interval History: No acute events occurred overnight. Pt endorses 8/10 pain in her R upper extremity this morning. Ptdenies any new numbness or tingling in R upper extremity. Hospital Course: Ms. Canales is a 33 year old female with a PMH significant for septic arthritis of L shoulder 06/2024, T2DM c/b retinopathy with blindness, ESRD on HD, HTN, HLD and HFpEF (last EF 74% with grade II diastolic dysfunction) who presented to an OSH on 07/25 for a 3 day history of progressive R shoulder pain. Per patient, the pain was present upon awakening that morning and progressed to a 10/10 deep throbbing pain in her R upper arm. She denies any recent trauma to the area, but reports cold sweats and fevers of two weeks duration. Of note, patient reports that her should pain feels exactly the same as it did during her most recent admission (05/23-06/03) for infectious arthritis of L shoulder. Pertinent labs at OSH include WBC 12.9k, Hb 10.3, plt 255; ESR 90, CRP 29.4; CMP remarkable for Na 131. Synovial fluid of R shoulder showing 92% neutrophils. Patient started empirically on azithromycin, cefepime, and vancomycin at OSH. Patient is currently receiving only vancomycin. Patient is s/p arthrotomy, irrigation and debridement, and synovectomy (07/27). OBJECTIVE Vital Signs: Vitals: 07/27/24 1745 07/27/24 1800 07/27/24 1804 07/27/24 1841 BP: 136/75 139/76 139/76 144/77 Pulse: 84 84 84 86 Resp: 16 18 18 20 Temp: 98.4 ??F (36.9 ??C) SpO2: 100% Weight: Height: Temp Min: 97.5 ??F (36.4 ??C) Max: 100.7 ??F (38.2 ??C), Pulse Min: 72 Max: 95, Resp Min: 10 Max: 25, BP Min: 78/57 Max: 171/95 Intake & Output: In: 800 [P.O.:200; I.V.:600] Out: 1500 Physical Exam: General: lying in bed, in NAD CV: RRR, soft systolic murmur over L 2nd intercostal space Pulm: CTAB, no w/r/r appreciated Skin: indurated patch of skin noted on RLQ abdomen, approximately 4-5 cm across, black discoloration R shoulder: no significant erythema, edema or lesions appreciated. R foot: wrapped in sterile gauze, ulcer 4 cm in diameter located on bottom of R heel, fibrinous material and blood present, no purulence appreciated Current Medications: Scheduled: 0.9% NaCl 3 mL Intracatheter q8h carvedilol 12.5 mg Oral BID WC epoetin 5,000 Units Intravenous DIALYSIS TUE, BLUE, & SAT ferrous sulfate 325 mg Oral QDAY WITH BREAKFAST furosemide 40 mg Oral MON, WED AND FRI gabapentin 300 mg Oral MON, WED AND FRI heparin 5,000 Units Subcutaneous q8h iopamidol Intravenous Contrast - Once lisinopril 20 mg Oral QDAY renal vitamin 1 tablet Oral QDAY sevelamer carbonate 800 mg Oral TID WC vancomycin (VANCOCIN) IV dose per pharmacy Does not apply DIRECTED Continuous: PRN: SALINE LOCK, INSERT AND MAINTAIN AND 0.9% NaCl AND 0.9% NaCl acetaminophen dextrose IV for hypoglycemia OR dextrose IV for hypoglycemia OR glucagon glucose (Diabetic Use) gel heparin heparin HYDROmorphone oxyCODONE (immediate release) Significant Lab Results: Recent Labs Component Name 07/27/24 07/26/24 WBC 11.7* 11.9* HGB 9.0* 9.7* HCT 28.7* 31.6* MCV 93.2 93.5 BMP: Recent Labs Component Name 07/27/24 07/26/24 07/25/24 2316 NA 132* 132* 134* POTASSIUM 5.6* 5.3* 4.7* CL 105 108* 107 CO2 16* 14* 18* BUN 49* 38* 36* CREATININE 9.99* 8.40* 7.46* CALCIUM 7.7* 8.1* 8.3* Recent Labs Component Name 07/25/24 0501 07/26/24 07/25/24 2316 PHOS 7.7* 7.4* 6.5* Microbiology: Blood culture 07/26 (preliminary): GPC in clusters Synovial Fluid Culture + Gram Stain 07/26 (preliminary): Culture: heavy MRSA Gram stain: heavy PMN cells and light GPC BCID Panel (07/25): MRSA (+), Staph aureus (+) Blood culture 07/27: pending Culture Wound + Gram Stain 07/27: pending Imaging & Studies: CT Chest Abdomen Pelvis with Contrast, 07/27/24 Impression: 1.A 2.9 cm right subscapularis abscess with adjacent osteomyelitis of the right humeral head and septic arthritis. There is a surgical drain likely in the glenohumeral joint space. 2.An ill-defined fluid collection adjacent to the left humerus without a well-defined rim which may represent an early developing abscess versus phlegmon. 3.Cardiomegaly with pulmonary edema. 4.Dendriform pulmonary ossifications in the lung bases. XR Shoulder Right, 07/26/24 Impression: 1.Osseous erosions of the humeral head and scapula, 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 Findings are further characterized outside hospital CT from 07/25/2024 ([facility] 2. No acute fracture or dislocation. 3. Partially imaged airspace opacity in the setting of the right lung. 4. Recommend attention to dedicated chest radiograph. Chest XR, 07/25/24 Impression: Right internal jugular approach dialysis catheter terminates in the superior cavoatrial junction, unchanged. 2. Mild bilateral interstitial opacities may represent mild interstitial edema and/or atypical infection. There is no confluent airspace consolidation. No pleural effusion or pneumothorax. Cardiomegaly is suggested on this portable AP projection exam, unchanged. Mediastinal contours are normal. The visible bony thorax is intact. 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, with long-term current use of insulin (HCC) (POA: Yes) Hypoalbuminemia (POA: Yes) Septic arthritis of shoulder, right (HCC) (POA: Yes) Pneumonia of both lungs due to infectious organism, unspecified part of lung (POA: Yes) Acute pain of right shoulder (POA: Yes) Sepsis due to methicillin resistant Staphylococcus aureus (MRSA) (HCC) (POA: Yes) Dyslipidemia (POA: Yes) Obesity, Class II, BMI 35-39.9 (POA: Yes) Hyponatremia (POA: Yes) Hyperkalemia (POA: Yes) Hyperphosphatemia (POA: Yes) Hypocalcemia (POA: Yes) #MRSA bacteremia #Septic arthritis of R shoulder Pt has a prior hx of L shoulder septic arthritis with similar symptoms (06/2024). For current admission, OSH synovial fluild results showed cloudy, red fluid with 92% neutrophils, 2% lymphocytes, 6% macrophages; synovial RBC and nuc cells not performed. Ortho performed aspiration of R shoulder on 07/26/24 at [facility], 15mL aspirated with results showing heavy PMNs and light GPC. Blood culture from OSH and [facility] growing heavy MRSA. Finally, R shoulder XR 07/26/24 concerning for osteomyelitis in setting of known pyogenic arthritis. PLAN: - Pending TTE - Obtain MATT - Pending CTAP w/ contrast - Ortho ID consulted, appreciate recs: Obtain 2 sets of BC every 24-48hrs until neg for >72hrs on 2 consecutive days Recommend TTE Continue IV vancomycin; discontinue cefepime and flagyl Recommending MRI cervical spine w/ w/o contrast (will hold off until next dialysis session) Cont to follow operative cultures until complete F/u R shoulder aspiration cultures from OSH Recommend removal of tunneled dialysis line Recommend venous doppler RUE for eval of RUE/DVT (ordered) CBC w/ diff, CMP vancomycin trough at least weekly while on IV abx Due for ESR, CRP on 08/01 (last one on 07/25) - Ortho consulted, appreciate recs: - S/p I&D of R shoulder - Ortho ID consulted, appreciate recs # Pulmonary infiltrates # Possible pneumonia CT chest/abd/pelvis from OSH showing bilateral pulmonary infiltrates. CXR 07/25/24 showing mild bilateral interstitial opacities that may represent mild interstitial edema and/or atypical infection. Patient has also had subjective fevers over past 2 weeks as well as temperature up to 100.7 this admission. Patient endorses orthopnea. Pertinent lab findings include Procal elevated at 2.18 and BNP elevated at 380. PLAN: - Pt on vanc for R shoulder arthritis - CTM # T2DM # ESRD on HD TTS Pt reports not taking any diabetes medications at home due to well-controlled A1c. Last A1c 05/25/24was 6.2%. BG ranging btwn 145-190 as of 07/28. PLAN: - Accuchecks TIDAC; no need for SSI at this time, will CTM - Nephrology consulted for HD management, appreciate recs: Remove perm cath following dialysis; will need 2 sets of neg Bcx before permcath can be replaced Plan for removal of perm cath on 07/28 TTE If K > 5 after perm cath removal, start lokelma Restart home antihypertensives as tolerated in setting of sepsis would be cautious. Cont lasix after iHD session as pt will remain w/o dialysis until 2 neg cultures makes urine and diuretics to maintain euvolemia - Continue home iron supplement, Lasix 40 mg po MWF, home gabapentin MWF, home renal vitamin, sevelamer # PVD # R heel ulcer - Wound care consult - CT scan R foot # HTN # HLD # Anemia # HFpEF Pt has a history of HFpEF with last TTE 05/21 showing EF 74% with grade II diastolic dysfunction. PLAN: - Continue home carvedilol 12.5 mg bid, lisinopril 20 mg daily Code: FULL Electrolytes: Replete PRN PPx: heparin Access: PIV Dispo: Medicine The above assessment and plan will be discussed with the attending. This note is not final until attested by attending physician. Jeanna Garcia MS3 [facility] 07/28/2024 7:05 AM Associated attestation - Geronimo Burleson MD - 07/29/2024 7:22 AM CDT This note is for educational purposes only and has not necessarily been verified. * Nitesh Stephens MD - 07/28/2024 5:03 AM CDT Orthopaedic Trauma Surgery Daily Progress Note Name: Leeroy Canales Age: [age] year old Room: 641/01 Date Admitted: 07/25/2024 Interval History: Patient seen and examined on rounds this AM. No acute ortho events overnight. Pain is controlled. No new numbness or tingling. Labs CBC Recent Labs Component Name 07/27/24 0501 07/26/24 0850 07/25/24 2316 WBC 11.7* 11.9* 13.0* HGB 9.0* 9.7* 9.5* HCT 28.7* 31.6* 31.7* PLTCOUNT 339 283 269 BMP Recent Labs Component Name 07/27/24 0501 07/26/24 0850 07/25/24 2316 05/24/24 0625 03/02/24 0338 03/01/24 0310 02/29/24 0127 NA 132* 133* 134* - 137 135* 135* POTASSIUM 5.6* 5.3* 4.7* - 5.5* 4.9* 4.4 CL 105 108* 107 - 102 106 104 CO2 16* 14* 18* - 25 * 24 BUN 49* 38* 36* - 39* 28* 16 CREATININE 9.99* 8.40* 7.46* - 7.43* 5.80* 3.73* GLUCOSE 150* 161* 138* - 92 112 141* CALCIUM 7.7* 8.1* 8.3* - 8.8 8.8 8.3* MAGNESIUM - - - - 2.4 2.1 2.0 PHOS 7.7* 7.4* 6.5* - 7.3* 6.1* 4.1 - = values in this interval not displayed. Coags Recent Labs Component Name 07/25/24 2316 02/22/24 2214 04/26/23 0629 PT 15.3* 14.6 16.3* INR 1.2 1.2 1.3 PTT 30.3 - 29.8 Vitamin D Recent Labs Component Name 02/25/24 0110 [id number] 12.3* Vitals BP 144/77 (BP Location: Left arm, Patient Position: Lying) Pulse 86 Temp 98.4 ??F (36.9 ??C) (Axillary) Resp 20 Ht 1.702 m (5' 7 ) Wt 113.5 kg (250 lb 3.2 oz) SpO2 100% Temp (24hrs), Av.4 ??F (36.9 ??C), Min:97.6 ??F (36.4 ??C), Max:99.8 ??F (37.7 ??C) Physical Exam General appearance: Alert, cooperative, and no apparent distress Right upper extremity: Fires motor R/M/U/AIN/PIN, Sensation intact in R/M/U nerve distributions distally, extremity warm and well perfused. Assessment and Plan: Leeroy Canales is a 33 year old female with right shoulder septic arthritis Surgeries: - s/p: Irrigation debridement right shoulder with Dr. Chapman on 07/27 Plan: No additional planned orthopedic intervention HV x 1, will likely remain today Abx per ID Weight bearing status: right upper extremity: WBAT Diet: OK from ortho perspective Splints/Bracing/Drain: none PT/OT Current Dispo: Continue inpatient hospitalization Daily Reminders: Pain control per primary Recommend avoiding NSAIDs during the first 3 weeks after injury and surgery due to risk of delayed healing Sutures are dissolvable and will fall out on their own DVT Prophylaxis: In hospital: Heparin At discharge: Per primary, OK from Ortho perspective For questions, please contact Ortho Trauma APPs or send epic chat to [facility]. For urgent questions, please page Ortho Trauma service pager through [employer]. Patient will require follow up in the office with Dr. Chapman 2 week(s) after discharge. Ortho office staff to help arrange. Please notify Ortho Trauma [facility] when patient is ready for discharge. Contactinformation below: [facility] Office Schedulers: [phone], option 1 Nitesh Stephens MD 07/28/2024 5:03 AM * Del Knott RN - 07/27/2024 6:58 PM CDT Problem: Pain/Discomfort Goal: Patient exhibits [...] in the flowsheet documentation) Outcome: Progressing Problem: Nutrient: Increased nutrient needs (specify) Goal: Total intake will meet estimated nutrient needs Outcome: Progressing Problem: Hemodynamic Status/Cardiac Output Goal: Patient has stable vital signs and fluid balance Outcome: Progressing Problem: Fluid and Electrolyte Imbalance Goal: Fluid and electrolyte balance are achieved/maintained Outcome: Progressing Problem: Infection Goal: Signs and symptoms of infections are decreased or avoided Outcome: Progressing * Marvin Suarez RN - 07/27/2024 6:32 PM CDT 07/27/24 1804 Post Hemodialysis Patient Response to Treatment tolerated well Post Dialysis Patient Status Returned to room Ultrafiltration Amount (ml) 1500 Dialyzer Clearance Clotted Amount of blood processed (Liters) 64.9 Post Hemodialysis Comment otherwise stable tx, zofran admin, cvc hep locked Problem: Hemodynamic Status/Cardiac Output Goal: Patient has stable vital signs and fluid balance Outcome: Progressing Problem: Fluid and Electrolyte Imbalance Goal: Fluid and electrolyte balance are achieved/maintained Outcome: Progressing * Kari Mckeon MD - 07/27/2024 4:55 PM CDT [facility] INTERNAL MEDICINE PROGRESS NOTE Patient: Leeroy Canales Sex: female Age: [age] year old Date of : 1990 Date of Admission: 07/25/2024 Date: 07/27/2024 LOS: 2 SUBJECTIVE Interval History: Pt not in room this morning, in OR for I&D with R shoulder with ortho. Plan for HD, CT CAP w/ contrast, ECHO today. Hospital Course: Leeroy Canales is a 33 year old y/o female with PMH of T2DM, ESRD on HD TTS, HTN, HLD, hx of RUE DVT, PVD, blindness, s/p L AKA, HFpEF, prior hx of infectious arthritis presenting from [facility] for 3 day history of right shoulder pain. Of note, patient had admission from 05/23-06/03 for infectious arthritis of L shoulder; pt states this pain feels exactly the same as her prior infection butin the opposite shoulder. Patient comes from a nursing facility where she was receiving rehab for prosthetic for LLE. At OSH labs revealed WBC 12.9k, Hb 10.3, plt 255; ESR 90, CRP 29.4; CMP remarkable for Na 131. Synovial fluid of R shoulder showing 92% neutrophils. Azithro, cefepime, vancomycin sta rted at OSH. OSH imaging notable for the following: Shoulder x-ray showing mild osteoarthritis of acromioclavicular joint.Shoulder CT showing prominent erosive changes of the right humeral head and greater tuberosity, as well as the right coracoid process, prominent thickening of the shoulder capsule, right shoulder effusion. CT chest abdomen pelvis showing bilateral pulmonary infiltrates suggesting bilateral pneumonia, cardiomegaly. At [facility], ortho and ortho ID consulted. Nephro consulted for inpatient HD. Ortho performed aspiration of R shoulder, fluid cultures growing heavy staph aureus. On 07/27/24, pt underwent arthrotomy, I&D, and synvectomy of R shoulder. BC from OSH and [facility] growingMRSA. Started on vancomycin with dialysis on TTS. OBJECTIVE Vital Signs: Vitals: 07/27/24 1645 07/27/24 1700 07/27/24 1715 07/27/24 1730 BP: 134/76 130/75 137/78 Pulse: 81 80 81 Resp: 16 16 16 16 Temp: SpO2: Weight: Height: Temp Min: 97.6 ??F (36.4 ??C) Max: 100.7 ??F (38.2 ??C), Pulse Min: 72 Max: 87, Resp Min: 10 Max: 25, BP Min: 95/60 Max: 139/76 Intake & Output: In: 650.4 [P.O.:600; I.V.:50.4] Out: 0 Physical Exam: Pt in OR, CT, then dialysis. Unable to examine today. Current Medications: Scheduled: 0.9% NaCl 3 mL Intracatheter q8h carvedilol 12.5 mg Oral BID WC epoetin 5,000 Units Intravenous DIALYSIS TUE, BLUE, & SAT ferrous sulfate 325 mg Oral QDAY WITH BREAKFAST furosemide 40 mg Oral MON, WED AND FRI gabapentin 300 mg Oral MON, WED AND FRI heparin 5,000 Units Subcutaneous q8h iopamidol Intravenous Contrast - Once lisinopril 20 mg Oral QDAY renal vitamin 1 tablet Oral QDAY sevelamer carbonate 800 mg Oral TID WC vancomycin (VANCOCIN) IV dose per pharmacy Does not apply DIRECTED Continuous: PRN: SALINE LOCK, INSERT AND MAINTAIN AND 0.9% NaCl AND 0.9% NaCl acetaminophen dextrose IV for hypoglycemia OR dextrose IV for hypoglycemia OR glucagon glucose (Diabetic Use) gel heparin heparin HYDROmorphone oxyCODONE (immediate release) Significant Lab Results: Recent Labs Component Name 07/27/24 0501 12/03/22 0242 12/02/221954 WBC 11.7* - 42.0* HGB 9.0* - 8.9* HCT 28.7* - 28.3* PLTCOUNT 339 - 556* PLATELET - - Occasional* - = values in this interval not displayed. Recent Labs Component Name 07/27/24 0501 07/26/24 0850 07/25/24 2316 12/02/225 08/25/22 0315 08/24/22 1404 08/24/22 0725 SODIUM - - - - 142 143 138 POTASSIUM 5.6* 5.3* 4.7* - 3.6 3.7 5.2* CHLORIDE - - - - 107 103 110* CO2 16* 14* 18* - 26 30 20* BUN 49* 38* 36* - 13 9 8 CREATININE 9.99* 8.40* 7.46* - 1.58* 1.43* 1.42* EGFR 5* 6* 7* - 45* 51* 51* GLUCOSE 150* 161* 138* - 211* 145* 165* CALCIUM 7.7* 8.1* 8.3* - 7.9* 8.2* 7.8* - = values in this interval not displayed. 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, with long-term current use of insulin (HCC) (POA: Yes) Hypoalbuminemia (POA: Yes) Septic arthritis of shoulder, right (HCC) (POA: Yes) Pneumonia of both lungs due to infectious organism, unspecified part of lung (POA: Yes) Acute pain of right shoulder (POA: Yes) Sepsis due to methicillin resistant Staphylococcus aureus (MRSA) (HCC) (POA: Yes) Dyslipidemia (POA: Yes) Obesity, Class II, BMI 35-39.9 (POA: Yes) Hyponatremia (POA: Yes) Hyperkalemia (POA: Yes) Hyperphosphatemia (POA: Yes) Hypocalcemia (POA: Yes) #MRSA bacteremia #Septic arthritis of R shoulder - OSH synovial fluild results showing cloudy, red fluid with 92% neutrophils, 2% lymphocytes, 6% macrophages; synovial RBC and nuc cells not performed - prior hx of L shoulder septic arthritis with similar symptoms - R shoulder XR concerning for osteomyelitis in setting of known pyogenic arthritis - Ortho performed aspiration of R shoulder on 07/26, aspirate growing heavy staph aureus - BC from OSH and [facility] growing heavy MRSA PLAN: - Pending TTE - Pending CTAP w/ contrast - Ortho ID consulted, appreciate recs: Obtain 2 sets of BC every 24-48hrs until neg for >72hrs on 2 consecutive days Recommend TTE Continue IV vancomycin; discontinue cefepime and flagyl Recommending MRI cervical spine w/ w/o contrast (will hold off until next dialysis session) Cont to follow operative cultures until complete F/u R shoulder aspiration cultures from OSH Recommend removal of tunneled dialysis line Recommend venous doppler RUE for eval of RUE/DVT (ordered) CBC w/ diff, CMP vancomycin trough at least weekly while on IV abx Due for ESR, CRP on 08/01 (last one on 07/25) - Ortho consulted, appreciate recs: - S/p I&D of R shoulder - Ortho ID consulted, appreciate recs # Pulmonary infiltrates # Possible pneumonia - CT chest/abd/pelvis from OSH showing bilateral pulmonary infiltrates - patient with subjective fevers over past 2 weeks as well as temperature up to 100.7 this admission - patient with orthopnea - Procal elevated at 2.18 - BNP elevated at 380 - CXR 07/25: Mild bilateral interstitial opacities may represent mild interstitial edema and/or atypical infection - Pt denies chest pain, F/C/N/V/D today 07/25 PLAN: - Pt on vanc for R shoulder arthritis, will CTM # T2DM # ESRD on HD TTS - pt reports not taking any diabetes medications at home due to well-controlled A1c - last A1c 05/25/24: 6.2% - BG ranging btwn 150-190 as of 07/26 PLAN: - Accuchecks TIDAC; no need for SSI at this time, will CTM - Nephrology consulted for HD management, appreciate recs: Dialysis today 07/27 then remove perm cath; will need 2 sets of neg Bcx before permcath can be replaced IR nephro fellow to remove perm cath 07/27 after iHD completed TTE If K > 5 after perm cath removal, pls start lokelma Restart home antihypertensives as tolerated in setting of sepsis would be cautious. Cont lasix after iHD session tmrw as pt with remain w/o dialysis until 2 neg cultures makes urine and diuretics to maintain euvolemia - Continue home iron supplement, Lasix 40 mg po MWF, home gabapentin MWF, home renal vitamin, sevelamer # PVD # R heel ulcer - Wound care # HTN # HLD # Anemia # HFpEF - last TTE 05/21 showing EF 74% with grade II diastolic dysfunction - continue home carvedilol 12.5 mg bid, lisinopril 20 mg daily Code: FULL Diet: NPO at midnight Electrolytes: Replete PRN PPx: heparin Access: PIV Dispo: Medicine The above assessment and plan will be discussed with the attending. This note is not final until attested by attending physician. Kari Mckeon MD Internal Medicine Resident [facility] 07/27/2024 5:34 PM Associated attestation - Geronimo Burleson MD - 07/27/2024 7:34 PM CDT I saw and examined Ms. Canales with the resident physician. I agree with the findings and care plan as documented by the resident physician. Nursing staff updated with changes to care plan. Updates to disposition plan discussed with social work and case management. Care plan discussed in person with infectious diseases consultants. 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, with long-term current use of insulin (HCC) (POA: Yes) Hypoalbuminemia (POA: Yes) Septic arthritis of shoulder, right (HCC) (POA: Yes) Pneumonia of both lungs due to infectious organism, unspecified part of lung (POA: Yes) Acute pain of right shoulder (POA: Yes) Sepsis due to methicillin resistant Staphylococcus aureus (MRSA) (HCC) (POA: Yes) Dyslipidemia (POA: Yes) Obesity, Class II, BMI 35-39.9 (POA: Yes) Hyponatremia (POA: Yes) Hyperkalemia (POA: Yes) Hyperphosphatemia (POA: Yes) Hypocalcemia (POA: Yes) Geronimo Burleson MD Hospitalist Carpenter Supervisor [facility] Signed: 07/27/2024 7:33 PM * Khloe Lowery - 07/27/2024 2:10 PM CDT Meet with patient in dialysis suite. Patient confirmed her OP HD schedule and voiced no concerns with clinic. Documented acknowledgement of choice:Yes, verbal consent due to contact precautions Khloe Lowery Kidney Navigator Office:[phone] Ascom: [phone] * Masha Finley RN - 07/27/2024 12:34 PM CDT Pt off the floor. Will attempt to follow up when time permits. * Charlie Sutherland MD - 07/27/2024 10:10 AM CDT Leeroy Canales, 33 year old, female : 1990 CSN: [id number] Admitted: 07/25/2024 8:15 PM Subjective Nausea/vomiting: none Pain: controlled Patient stable and resting in post-anesthesia care unit Post-op check regarding: Procedure Performed: Procedure(s): RIGHT SHOULDER INCISION AND DEBRIDEMENT Surgery Date: 07/27/2024 Vitals: Patient Vitals for the past 6 hrs: Temp Pulse Resp BP 07/27/24 0645 -- 79 20 104/62 07/27/24 0630 99.8 ??F (37.7 ??C) 80 22 108/57 07/27/24 0625 -- 80 19 -- 07/27/24 0624 -- 80 20 124/60 Physical Exam General appearance: Awake, cooperative, and NAD RUE -Appearance: dressings c/d/i -ROM: immobilized in sling -Motor: Grossly moving bilaterally -Sensation: Responds to stimulation distally -Vascular: brisk capillary refill, fingers warm and well perfused Assessment/Plan Patient is a 33 year old, female with right shoulder septic arthritis - s/p: Irrigation debridement right shoulder with Dr. Chapman on 07/27 Patient transferred to the PACU in stable condition. Patient will be transferred to the floor Antibiotics- per primary Weight-bearing/Activity/Brace Status: WBAT RUE DVT Prophylaxis: OK from ortho stand point Diet: OK Drains- HV1 PT/OT per anesthesia record Pain Control per anesthesia record Imaging: Postoperative X-Rays demonstrate hardware in good position are pending Please page OrthoTrauma with any questions or concerns * Jeanna Garcia - 07/27/2024 8:16 AM CDT [facility] INTERNAL MEDICINE PROGRESS NOTE Patient: Leeroy Canales Sex: female Age: [age] year old Date of : 1990 Date of Admission: 07/25/2024 Date: 07/27/2024 LOS: 2 SUBJECTIVE Interval History: No acute events overnight. Pain is controlled. Pt denies any new numbness or tingling in R upper extremity. Hospital Course: Ms. Canales is a 33 year old female with a PMH significant for septic arthritis of L shoulder 06/2024, T2DM c/b retinopathy with blindness, ESRD on HD, HTN, HLD and HFpEF (last EF 74% with grade II diastolic dysfunction) who presented to an OSH on 07/25 for a 3 day history of progressive R shoulder pain. Per patient, the pain was present upon awakening that AM and progressed to a 10/10 deep throbbing pain in her R upper arm. She denies any recent trauma to the area, but reports cold sweats and fevers of two weeks duration. Of note, patient reports that her should pain feels exactly the same as it did during her most recent admission (05/23-06/03) for infectious arthritis of L shoulder. Pertinent labs at OSH include WBC 12.9k, Hb 10.3, plt 255; ESR 90, CRP 29.4; CMP remarkable for Na 131. Synovial fluid of R shoulder showing 92% neutrophils. Patient started empirically on azithromycin, cefepime, and vancomycin at OSH. OSH imaging notable for the following findings: -Shoulder x-ray showing mild osteoarthritis of acromioclavicular joint. -Shoulder CT showing prominent erosive changes of the right humeral head and greater tuberosity, aswell as the right coracoid process, prominent thickening of the shoulder capsule, right shoulder effusion -CT chest abdomen pelvis showing bilateral pulmonary infiltrates suggesting bilateral pneumonia, cardiomegaly OBJECTIVE Vital Signs: Vitals: 07/27/24 0624 07/27/24 0625 07/27/24 0630 07/27/24 0645 BP: 124/60 108/57 104/62 Pulse: 80 80 80 79 Resp: 20 Temp: 99.8 ??F (37.7 ??C) SpO2: 92% 91% 92% Weight: Height: Temp Min: 97.5 ??F (36.4 ??C) Max: 100.7 ??F (38.2 ??C), Pulse Min: 76 Max: 95, Resp Min: 14 Max: 22, BP Min: 78/57 Max: 171/95 Intake & Output: In: 650.4 [P.O.:600; I.V.:50.4] Out: 0 Physical Exam: Unable to assess, patient in OR. Current Medications: Scheduled: 0.9% NaCl 3 mL Intracatheter q8h azithromycin (Zithromax) IV 500 mg Intravenous q24h carvedilol 12.5 mg Oral BID WC cefepime 1 g Intravenous q24h epoetin 5,000 Units Intravenous DIALYSIS TUE, BLUE, & SAT ferrous sulfate 325 mg Oral QDAY WITH BREAKFAST furosemide 40 mg Oral MON, WED AND FRI gabapentin 300 mg Oral MON, WED AND FRI heparin 5,000 Units Subcutaneous q8h lisinopril 20 mg Oral QDAY renal vitamin 1 tablet Oral QDAY sevelamer carbonate 800 mg Oral TID WC vancomycin (VANCOCIN) IV dose per pharmacy Does not apply DIRECTED Continuous: PRN: SALINE LOCK, INSERT AND MAINTAIN AND 0.9% NaCl AND 0.9% NaCl acetaminophen dextrose IV for hypoglycemia OR dextrose IV for hypoglycemia OR glucagon glucose (Diabetic Use) gel heparin HYDROmorphone oxyCODONE (immediate release) Significant Lab Results: CBC: Recent Labs Component Name 07/27/24 07/26/24 WBC 11.7* 11.9* HGB 9.0* 9.7* HCT 28.7* 31.6* MCV 93.2 93.5 BMP: Recent Labs Component Name 07/27/24 07/26/24 07/25/24 2316 NA 132* 132* 134* POTASSIUM 5.6* 5.3* 4.7* CL 105 108* 107 CO2 16* 14* 18* BUN 49* 38* 36* CREATININE 9.99* 8.40* 7.46* CALCIUM 7.7* 8.1* 8.3* Recent Labs Component Name 07/25/24 0501 07/26/24 07/25/24 2316 PHOS 7.7* 7.4* 6.5* Microbiology: Blood culture (preliminary): GPC in clusters (positive at 12 hours 7 minutes) Synovial Fluid Culture + Gram Stain (preliminary): heavy PMNs and light GPC BCID Panel: MRSA (+), Staph aureus (+) Imaging & Studies: X-Ray Shoulder Right 07/26/24 Impression: -Osseous erosions of the humeral head and scapula, 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 Findings are further characterized outside hospital CT from 07/25/2024 ([facility] -No acute fracture or dislocation. -Partially imaged airspace opacity in the setting of the right lung. -Recommend attention to dedicated chest radiograph. Chest X-Ray 07/25/24 Impression: -Right internal jugular approach dialysis catheter terminates in the superior cavoatrial junction, unchanged. -Mild bilateral interstitial opacities may represent mild interstitial edema and/or atypical infection. There is no confluent airspace consolidation. No pleural effusion or pneumothorax. Cardiomegaly is suggested on this portable AP projection exam, unchanged. Mediastinal contours are normal. The visible bony thorax is intact. 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 For current admission, OSH synovial fluild results showed cloudy, red fluid with 92% neutrophils, 2% lymphocytes, 6% macrophages; synovial RBC and nuc cells not performed. Ortho performed aspiration of R shoulder on 07/26/24 at [facility], 15mL aspirated with results showing heavy PMNs and light GPC. Blood culture (preliminary) growing GPC in clusters (positive at 12 hours 7 minutes). Finally, R shoulder XR 07/26/24 concerning for osteomyelitis in setting of known pyogenic arthritis. PLAN: - Continue current abx: cefepime, vancomycin, azithromycin -Azithromycin last dose 07/27/24 at 1800 -Likely duration 4-6 week course of IV vancomycin - I&D of R shoulder performed 07/27/24 by ortho - Ortho ID consulted, f/u recommendations - CT chest/abdomen/pelvis with contrast to assess for presence of abscess(es) - TTE to assess for cardiac abscess # Pulmonary infiltrates # Possible pneumonia CT chest/abd/pelvis from OSH showing bilateral pulmonary infiltrates. CXR 07/25/24 showing mild bilateral interstitial opacities that may represent mild interstitial edema and/or atypical infection. Patient has also had subjective fevers over past 2 weeks as well as temperature up to 100.7 this admission. Patient endorses orthopnea. Pertinent lab findings include Procal elevated at 2.18 and BNP elevated at 380. PLAN: - Pt on broad spectrum abx for R shoulder arthritis - CTM # T2DM # ESRD on HD TTS Pt reports not taking any diabetes medications at home due to well-controlled A1c. Last A1c 05/25/24was 6.2%. BG ranging btwn 145-190 as of 07/27 (most recent: 150 at 0501 on 07/27/24) PLAN: - Accuchecks TIDAC; no need for SSI at this time, will CTM - Nephrology consulted for HD management, appreciate recs - Continue home iron supplement, Lasix 40 mg po MWF, home gabapentin MWF, home renal vitamin, sevelamer # PVD # R heel ulcer - Wound care # HTN # HLD # Anemia # HFpEF - last TTE 05/21 showing EF 74% with grade II diastolic dysfunction - continue home carvedilol 12.5 mg bid, lisinopril 20 mg daily Code: FULL Electrolytes: Replete PRN PPx: heparin Access: PIV Dispo: Medicine The above assessment and plan will be discussed with the attending. This note is not final until attested by attending physician. Jeanna Garcia Internal Medicine Resident [facility] 07/27/2024 8:16 AM Associated attestation - Geronimo Burleson MD - 07/27/2024 5:16 PM CDT This note is for educational purposes only and has not necessarily been verified. * Adolfo Browne MD - 07/27/2024 5:53 AM CDT Orthopaedic Trauma Surgery Daily Progress Note Name: Leeroy Canales Age: [age] year old Room: 641/01 Date Admitted: 07/25/2024 Interval History: Patient seen and examined on rounds this AM. No acute events overnight. Pain is controlled. No new numbness or tingling. Labs CBC Recent Labs Component Name 07/27/24 0501 07/26/24 0850 07/25/24 2316 WBC 11.7* 11.9* 13.0* HGB 9.0* 9.7* 9.5* HCT 28.7* 31.6* 31.7* PLTCOUNT 339 283 269 BMP Recent Labs Component Name 07/26/24 0850 07/25/24 2316 06/03/24 0009 05/24/24 0625 03/02/24 0338 03/01/24 0310 02/29/24 0127 NA 133* 134* 138 - 137 135* 135* POTASSIUM 5.3* 4.7* 5.7* - 5.5* 4.9* 4.4 CL 108* 107 102 - 102 106 104 CO2 14* 18* 28 - 25 21* 24 BUN 38* 36* 38* - 39* 28* 16 CREATININE 8.40* 7.46* 5.40* - 7.43* 5.80* 3.73* GLUCOSE 161* 138* 195* - 92 112 141* CALCIUM 8.1* 8.3* 9.3 - 8.8 8.8 8.3* MAGNESIUM - - - - 2.4 2.1 2.0 PHOS 7.4* 6.5* 4.5 - 7.3* 6.1* 4.1 - = values in this interval not displayed. Coags Recent Labs Component Name 07/25/24 2316 02/22/24 2214 04/26/23 0629 PT 15.3* 14.6 16.3* INR 1.2 1.2 1.3 PTT 30.3 - 29.8 Vitamin D Recent Labs Component Name 02/25/24 0110 [id number] 12.3* Vitals BP 107/61 (BP Location: Left arm, Patient Position: Lying) Pulse 80 Temp 98.6 ??F (37 ??C) (Oral) Resp 18 Ht 1.702 m (5' 7 ) Wt 113.5 kg (250 lb 3.2 oz) SpO2 96% Temp (24hrs), Av.9 ??F (37.2 ??C), Min:98.5 ??F (36.9 ??C), Max:99.7 ??F (37.6 ??C) Physical Exam General appearance: Alert, cooperative, and no apparent distress Right upper extremity: Fires motor R/M/U/AIN/PIN, Sensation intact in R/M/U nerve distributions distally, extremity warm and well perfused. Assessment and Plan: Leeroy Canales is a 33 year old female with right shoulder septic arthritis Surgeries: - OR today for right shoulder irrigation and debridement Plan: Weight bearing status: right upper extremity: WBAT Diet: NPO Splints/Bracing/Drain: none PT/OT Current Dispo: Continue inpatient hospitalization Daily Reminders: Pain control per primary Recommend avoiding NSAIDs during the first 3 weeks after injury and surgery due to risk of delayed healing Sutures are dissolvable and will fall out on their own DVT Prophylaxis: In hospital: Heparin At discharge: Per primary, OK from Ortho perspective Bone health: Please check vitamin D level for all fracture patients If <12 ng/mL, recommend 25,000 to 50,000 units PO once weekly x8 weeks, followed by 800units daily after 9 weeks. Recommend PCP re-evaluation at 6-8 weeks If 12-19 ng/mL, recommend 1000 units daily while inpatient. Please discharge on 800-1000 units PO daily x3 months. Recommend PCP re-check at 3 months. If 20-30 ng/mL, recommend 1000 units PO daily. Please discharge on 600-800 units PO daily x3 months. Recommend PCP re-check at 3 months. For patients <70 y/o: If vitamin D level is normal, recommend 500 units daily while inpatient. Recommend discharge on Vit D3 500-600 units daily. For patients >70 y/o: If vitamin D level is normal, recommend 500 units daily while inpatient. Recommend discharge Vit D3 800 units daily. For questions, please contact Ortho Trauma APPs or send epic chat to [facility]. For urgent questions, please page Ortho Trauma service pager through [facility]ION. Patient will require follow up in the office with Dr. Chapman 2 week(s) after discharge. Ortho office staff to help arrange. Please notify Ortho Trauma [facility] when patient is ready for discharge. Contactinformation below: [facility] Office Schedulers: [phone], option 1 Adolfo Browne MD 07/27/2024 5:53 AM Associated attestation - Tao Chapman MD - 07/27/2024 7:14 AM CDT I have reviewed the history and pertinent physical findings on clinical exam of the patient. I agree with the residents assessment and I personally examined the patient myself with the crucial physical findings as noted below. Right shoulder with pain on any purposeful ROM at this time Aspiration consistent with septic joint > [id number] count with Gm + cocci noted.... Plan I and D d this am RIGHT shoulder Discussed with pt and will proceed. Ths am * Gretchen Jaramillo RN - 07/26/2024 8:47 PM CDT Problem: Pain/Discomfort Goal: Patient exhibits [...] in the flowsheet documentation) Outcome: Progressing Problem: Nutrient: Increased nutrient needs (specify) Goal: Total intake will meet estimated nutrient needs Outcome: Progressing * Mary Cowan RN - 07/26/2024 3:28 PM CDT Problem: Pain/Discomfort Goal: Patient exhibits reduced pain/discomfort as evidenced by pain scores Outcome: Not Progressing Goal: Patient uses pharmacological and non-pharmacological pain management strategies. Outcome: Not Progressing Goal: Patient verbalizes acceptable level of pain relief and ability to engage in desired activity. Outcome: Not Progressing Problem: Fall Risk Goal: Fall risk and fall related injury risk are minimized (interventions related to the fall risk can be found in the flowsheet documentation) Outcome: Progressing Problem: Nutrient: Increased nutrient needs (specify) Goal: Total intake will meet estimated nutrient needs Outcome: Progressing Patient resting in room. Pt is aware of the upcoming procedure. Vss. * Khloe Lowery - 07/26/2024 3:21 PM CDT I am aware of this patient's admission, I will be following this dialysis patient for any needs while an inpatient, and keeping their clinic informed of their progress while admitted. Records were forwarded to the clinic for their review. Spoke with Kristan at [facility] and she was able to confirm patient's OP HD schedule Outpatient Clinic [facility] Days: TTS Time: 11:30am Doctor: Dr Mak Khloe Lowery Kidney Navigator/ [facility] [place] Ascom: [phone] Office: [phone] * Jyoti Omalley PharmD - 07/26/2024 11:31 AM CDT ACTIVE CONSULTS TO PHARMACY/DISEASE STATE MONITORING Pharmacy Consult: Vancomycin ASSESSMENT/PLAN Indication: suspected Bone/joint of R shoulder with Goal Level: pre HD level 10- 20 mcg/ml ID consulted/following: No Assessment: Day of treatment: 2 (day 1 was 07/25/24 at OSH) End of treatment date: to be determined Current dosing regimen: Intermittent dosing based on levels pre-HD Recent Labs Component Name 07/26/24 0923 07/26/24 0850 07/25/24 2316 06/03/24 0009 06/02/24 0552 06/01/24 0442 05/30/24 0452 05/29/24 0408 05/22/23 0521 05/21/23 0450 05/20/23 0918 05/17/23 2151 05/09/23 0357 05/08/23 0841 04/29/23 0338 04/28/23 0319 04/27/232018 CREATININE - 8.40* 7.46* 5.40* 4.74* 5.83* - 4.81* - 1.62* - - 1.83* - - 1.39* - BUN - 38* 36* 38* 33* 43* - 43* - 13 - - 17 - - 13 - VANCORNDM 32.2 - - - - 18.3 - 23.0 - - - - - - - - - VANCTROUGH - - - - - - - - - 15.5 - - 19.5 - - 34.6* - VANCOPEAK - - - - - - - - - - 20.1* - - 26.1 - - 46.6* - = values in this interval not displayed. 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 Home iHD schedule is TTS. Level(s): See chart above Random level on 07/26 at 0923 was 32.2 mcg/ml. This level was ~15 hours after last dose. Patient is on iHD with expected clearance of 20-30% per iHD session, the level reported in chart above is expected to be above therapeutic range (10-20 mcg/ml) after next HD session. Plan Dosing: Will continue serial dosing based on scheduled dialysis sessions with next session expected to be on Friday 07/27 if plan is to resume home HD schedule. Monitoring: Will order a vancomycin random level prior to potential iHD session on 07/29 at 0400 and adjust regimen if indicated. Continue to monitor patient???s renal function and cultures as needed. Please follow up on nephrology recs for HD planning and adjust level timing as indicated. Jyoti Omalley PharmD 07/26/2024 10:55 AM [facility] Vancomycin Guideline SUBJECTIVE/OBJECTIVE Leeroy Canales is a 33 year old female. Height: 5' 7 (170.2 cm) Wt 114.2 kg (251 lb 11.2 oz) Body mass index is 39.42 kg/m??. Vancomycin Administrations from [facility] (last 72 hours) None * Mari Scruggs RN - 07/26/2024 9:10 AM CDT Care Coordination Initial Assessment Expected Discharge Date: 07/28/2024 Expected Discharge Disposition: [facility]cf Facility ([facility] x1 year per patient) Transportation at Discharge: Prior Level of Care: Alf - Skilled Facility Prior to Admit Provider: Comments: Initial assessment completed. Lives with her mom [address] at [place] [address] tel [phone]. Lives with: Family Members Physical Limitations: None Requires Assistance With: None Preferred Pharmacy: [phone] [facility] [phone] [place] [phone] READMISSION RISK SCORE is 24 at 11:33 AM 07/26/2024. Met with patient Family Support (name and phone): Extended Emergency Contact Information Primary Emergency Contact: Silvia Resendiz Mobile Relation: Mother Clerical Coordinator needed? No Secondary Emergency Contact: GAYE BAEL Mobile Relation: Sister Clerical Coordinator needed? No Patient or environmental marketing representative requests care coordination reach out to family or caregiver listed above regarding discharge planning and at time of discharge? No Actual Level of Care/Dispostion Details Direct Sales Consultant Referral: Yes Will continue to follow. For any questions or needs please contact: Oncology Nurse/Social Work Name/Phone number: Mari Scruggs RN * Roxanna Stein RN - 07/26/2024 7:54 AM CDT Pt. arrived via EMS without dressing covering dialysis catheter. * Kari Mckeon MD - 07/26/2024 7:08 AM CDT [facility] INTERNAL MEDICINE PROGRESS NOTE Patient: Leeroy Canales Sex: female Age: [age] year old Date of : 1990 Date of Admission: 07/25/2024 Date: 07/26/2024 LOS: 1 SUBJECTIVE Interval History: Pt continues to have R shoulder pain this morning. Hospital Course: Leeroy Canales is a 33 year old y/o female with PMH of T2DM, ESRD on HD TTS, HTN, HLD, hx of RUE DVT, PVD, blindness, s/p L AKA, HFpEF, prior hx of infectious arthritis presenting from [facility] for 3 day history of right shoulder pain. Patient states that she felt right shoulder pain upon w aking up one morning and it has progressed to become a 10/10, deep throbbing pain that she also feels in her upper arm. Pain is more severe on movement. Denies any trauma to the area. Also reports that for about two weeks, she has been experiencing cold sweats and fevers. Of note, patient had admission from 05/23-06/03 for infectious arthritis of L shoulder; pt states this pain feels exactly the same as her prior infection but in the opposite shoulder. Patient comes from a nursing facility where she was receiving rehab for prosthetic for LLE. At OSH labs revealed WBC 12.9k, Hb 10.3, plt 255; ESR 90, CRP 29.4; CMP remarkable for Na 131. Synovial fluid of R shoulder showing 92% neutrophils. Azithro, cefepime, vancomycin started at OSH. OSH imaging notable for the following:Shoulder x-ray showing mild osteoarthritis of acromioclavicular joint.Shoulder CT showing prominent erosive changesof the right humeral head and greater tuberosity, as well as the right coracoid process, prominent thickening of the shoulder capsule, right shoulder effusion. CT chest abdomen pelvis showing bilateral pulmonary infiltrates suggesting bilateral pneumonia, cardiomegaly OBJECTIVE Vital Signs: Vitals: 07/26/24 0111 07/26/24 0331 07/26/24 0401 07/26/24 0414 BP: 109/58 116/69 110/62 110/62 Pulse: 87 81 79 79 Resp: 19 20 Temp: 99.6 ??F (37.6 ??C) 98.6 ??F (37 ??C) 98.6 ??F (37 ??C) 98.6 ??F (37 ??C) SpO2: 96% 97% Weight: 114.2 kg (251 lb 11.2 oz) Height: 1.702 m (5' 7 ) Temp Min: 98.6 ??F (37 ??C) Max: 100.7 ??F (38.2 ??C), Pulse Min: 79 Max: 87, Resp Min: 19 Max: 20,BP Min: 109/58 Max: 116/69 Intake & Output: No intake/output data recorded. Physical Exam Constitutional: Appearance: Normal appearance. HENT: Head: Normocephalic and atraumatic. Cardiovascular: Rate and Rhythm: Normal rate and regular rhythm. Pulses: Normal pulses. Heart sounds: Normal heart sounds. No murmur heard. No gallop. Pulmonary: Effort: Pulmonary effort is normal. No respiratory distress. Breath sounds: Normal breath sounds. No wheezing. Abdominal: General: Abdomen is flat. There is no distension. Palpations: Abdomen is soft. Tenderness: There is no abdominal tenderness. Skin: General: Skin is warm and dry. Neurological: Mental Status: She is alert. Current Medications: Scheduled: 0.9% NaCl 3 mL Intracatheter q8h azithromycin (Zithromax) IV 500 mg Intravenous q24h carvedilol 12.5 mg Oral BID WC cefepime 1 g Intravenous q24h ferrous sulfate 325 mg Oral QDAY WITH BREAKFAST furosemide 40 mg Oral MON, WED AND FRI gabapentin 300 mg Oral MON, WED AND FRI heparin 5,000 Units Subcutaneous q8h lisinopril 20 mg Oral QDAY renal vitamin 1 tablet Oral QDAY sevelamer carbonate 800 mg Oral TID WC vancomycin (VANCOCIN) IV dose per pharmacy Does not apply DIRECTED Continuous: PRN: SALINE LOCK, INSERT AND MAINTAIN AND 0.9% NaCl AND 0.9% NaCl acetaminophen dextrose IV for hypoglycemia OR dextrose IV for hypoglycemia OR glucagon glucose (Diabetic Use) gel HYDROmorphone oxyCODONE (immediate release) Significant Lab Results: Recent Labs Component Name 07/26/24 0850 12/03/22 0242 12/02/221954 WBC 11.9* - 42.0* HGB 9.7* - 8.9* HCT 31.6* - 28.3* PLTCOUNT 283 - 556* PLATELET - - Occasional* - = values in this interval not displayed. Recent Labs Component Name 07/26/24 0850 07/25/24 2316 06/03/24 0009 12/02/22195408/25/22 0315 08/24/22 1404 08/24/22 0725 SODIUM - - - - 142 143 138 POTASSIUM 5.3* 4.7* 5.7* - 3.6 3.7 5.2* CHLORIDE - - - - 107 103 110* CO2 14* 18* 28 - 26 30 20* BUN 38* 36* 38* - 13 9 8 CREATININE 8.40* 7.46* 5.40* - 1.58* 1.43* 1.42* EGFR 6* 7* 10* - 45* 51* 51* GLUCOSE 161* 138* 195* - 211* 145* 165* CALCIUM 8.1* 8.3* 9.3 - 7.9* 8.2* 7.8* - = values in this interval not displayed. 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, with long-term current use of insulin (HCC) (POA: Yes) Pyogenic arthritis of right shoulder region, due to unspecified organism (HCC) (POA: Yes) Pneumonia of both lungs due to infectious organism, unspecified part of lung (POA: Clinically Undetermined) # Septic arthritis of R shoulder - OSH synovial fluild results showing cloudy, red fluid with 92% neutrophils, 2% lymphocytes, 6% macrophages; synovial RBC and nuc cells not performed - prior hx of L shoulder septic arthritis with similar symptoms - R shoulder XR concerning for osteomyelitis in setting of known pyogenic arthritis - Ortho performed aspiration of R shoulder on 07/26, 15mL aspirated PLAN: - continue cefepime, vancomycin, azithromycin - Ortho consulted, appreciate recs: - NPO at midnight for I&D of R shoulder - Ortho ID consulted, appreciate recs - f/u blood cx drawn 07/25 - F/u R shoulder aspirate culture + gram stain # Pulmonary infiltrates # Possible pneumonia - CT chest/abd/pelvis from OSH showing bilateral pulmonary infiltrates - patient with subjective fevers over past 2 weeks as well as temperature up to 100.7 this admission - patient with orthopnea - Procal elevated at 2.18 - BNP elevated at 380 - CXR 07/25: Mild bilateral interstitial opacities may represent mild interstitial edema and/or atypical infection - Pt denies chest pain, F/C/N/V/D today 07/25 PLAN: - Pt on broad spectrum abx for R shoulder arthritis, will CTM # T2DM # ESRD on HD TTS - pt reports not taking any diabetes medications at home due to well-controlled A1c - last A1c 05/25/24: 6.2% - BG ranging btwn 150-190 as of 07/26 PLAN: - Accuchecks TIDAC; no need for SSI at this time, will CTM - Nephrology consulted for HD management, appreciate recs - Continue home iron supplement, Lasix 40 mg po MWF, home gabapentin MWF, home renal vitamin, sevelamer # PVD # R heel ulcer - Wound care # HTN # HLD # Anemia # HFpEF - last TTE 05/21 showing EF 74% with grade II diastolic dysfunction - continue home carvedilol 12.5 mg bid, lisinopril 20 mg daily Code: FULL Diet: NPO at midnight Electrolytes: Replete PRN PPx: heparin Access: PIV Dispo: Medicine The above assessment and plan will be discussed with the attending. This note is not final until attested by attending physician. Kari Mckeon MD Internal Medicine Resident [facility] 07/26/2024 7:08 AM Associated attestation - Hunter Chin III, MD - 07/28/2024 10:58 AM CDT I have chart reviewed, seen, and examined the patient. Together the resident and I formulated a therapeutic plan for this patient based on their subjective and objective findings, including any new lab and image findings. I agree with the assessment and plan as documented unless specifically mentioned below. Date of Service: Date of Resident's note Hunter Chin MD Carpenter Supervisor [employer], [facility] Medicine [facility] [employer] 07/28/24 10:58 AM * Roxanna Stein RN - 07/26/2024 4:13 AM CDT Problem: Pain/Discomfort Goal: Patient [...] in the flowsheet documentation) Outcome: Progressing * Roman Smith PharmD - 07/25/2024 11:47 PM CDT ACTIVE CONSULTS TO PHARMACY/DISEASE STATE [...] some patient populations. REF: https://www.idsociety.org/practice-guideline/vancomycin/ ASSESSMENT/PLAN Indication: suspected Bone/joint of right shoulder with Goal Level: pre HD level 10-20 mcg/ml Assessment Microbiology: Recent Labs Component Name 02/22/24 2359 MRSADPCR Detected* History/current positive cultures for MRSA: Yes, MRSA PCR- 02/22/24 Other pertinent micro: No Blood cultures in process Renal: Recent Labs Component Name 06/03/24 0009 06/02/24 0552 06/01/24 0442 05/31/24 0605 CREATININE 5.40* 4.74* 5.83* 5.07* BUN 38* 33* 43* 37* Considered difficult to accurately assess at this time as patient is on intermittent hemodialysis (iHD) with last session 07/24/24 and next planned unknown. Patient is an OSH transfer and her usual outpatient iHD schedule is Friday//Friday. Per the patient- she does make small amounts of urine but since her infection started (last two days) she has not made any urine. Historical dosing data that influences current dosing decisions: Yes, On 07/25/24 patient had a 2,000 mg vancomycin dose at 1800 at [facility]. Plan Regimen: Loading dose: 2000 mg Maintenance dose: to be determined Dosing interval: dosing post HD sessions Unable to calculate expected vancomycin level at this time due to above intermittent dosing plan Monitoring: Will order a vancomycin random level on 07/27 at 0400 and adjust regimen if indicated. Please follow for iHD schedule Continue to monitor patient???s renal function and cultures as needed. Roman Smith, PharmD 07/25/2024 11:01 PM [facility] Vancomycin Guideline SUBJECTIVE/OBJECTIVE Leeroy Canales is a 33 year old female Height: 5' 7 (170.2 cm) Wt 114.2 kg (251 lb 11.2 oz) Body mass index is 39.42 kg/m??. Dialysis Orders (72h ago, onward) None Vancomycin Administrations from MAR (last 72 hours) None Recent Labs Component Name 06/01/24 0442 05/29/24 0408 05/27/24 0659 02/23/24 0737 05/21/23 0450 05/20/23 0918 05/18/23 0617 05/09/23 0357 05/08/23 0841 04/29/23 0338 04/28/23 0319 04/27/232018 VANCORNDM 18.3 23.0 14.8 - - - - - - - - - VANCTROUGH - - - - 15.5 - - 19.5 - - 34.6* - VANCOPEAK - - - - - 20.1* - - 26.1 - - 46.6* - = values in this interval not displayed. documented in this encounter H&P Notes * Abel Alvarenga MD - 07/30/2024 10:09 AM CDT [facility] PRE PROCEDURE H&P AND SEDATION NOTE Planned Course of Treatment/Procedure: MATT History of Present Illness: 33 yo F with GPC bacteremia to undergo MATT to rule out IE. Heart Failure: No Stress Test Preformed: None Medications, vital signs and labs results reviewed prior to procedure: Yes Past Medical & Surgical History Illnesses: Past Medical History: Diagnosis Date Essential (primary) hypertension Heart failure (HCC) Type 2 diabetes mellitus without complications (HCC) Past Surgical History: Procedure Laterality Date DEBRIDEMENT Right 07/27/2024 Right; RIGHT SHOULDER INCISION AND DEBRIDEMENT LEG AMPUTATION ABOVE KNEE Left 12/05/2022 Left; AMPUTATION ABOVE LEFT KNEE Leg Amputation, Below Knee Left 12/02/2022 Left; LEFT ANKLE DISARTICULATION LEVEL 2 @ 2220 No Known Allergies General: Well-developed in NAD. HEENT: NC/AT. PERRL. Neck: Supple. No tenderness, enlargement. Lungs: CTAB. No respiratory distress. Heart: RRR. +S1, S2. Abdomen: Soft. NT/ND. Ext/MS: No edema, no cyanosis Neuro: A&O x3. No focal deficits noted. Skin: No obvious rashes or lesions noted. Pulses: Radial : 2+ bilateral Femoral artery: 2+ bilateral Recent Labs Component Name 07/29/24 0624 07/28/24 0702 07/27/24 0501 07/25/24 2316 06/03/24 0009 06/02/24 0552 06/01/24 0442 03/02/24 0338 03/01/24 0310 02/23/24 0737 02/22/24 2214 06/10/23 1043 12/02/22 1955 08/22/22 0317 08/21/22 0846 0000 WBC 10.4 11.0* 11.7* - 8.5 8.1 8.8 - 14.1* - 18.0* 6.0 - 9.6 11.7* - RBC 3.22* 3.24* 3.08* - 3.49* 3.55* 3.29* - 3.02* - 3.23* 4.28 - 3.04* 3.25* - HGB 9.4* 9.4* 9.0* - 10.3* 10.4* 9.7* - 9.0* - 9.6* 11.9* - 8.1* 8.6* - HCT 30.1* 29.5* 28.7* - 33.8* 34.4* 32.6* - 28.7* - 30.5* 39.9 - 26.8* 28.6* - MCV 93.5 91.0 93.2 - 96.8 96.9 99.1* - 95.0 - 94.4 93.2 - 88.2 88.0 - MCHC 31.2* 31.9 31.4* - 30.5* 30.2* 29.8* - 31.4* - 31.5* 29.8* - 30.2* 30.1* - PLTCOUNT 467* 388 339 - 302 303 305 - 541* - 485* 434* - 571* 584* - NEUTPCT - - - - 46.6 59.5 50.2 - - - - 48.6 - 61.7 69.5 - LYMPHPCT - - - - 27.0 19.9 27.8 - - - - - - 24.8 21.2 - BASOPHILPCT - - - - - - - - - - - - - 0.2 0.3 - GRANSIMMPCT - - - - - - - - - - - - - 0.4 0.5 - NEUTABS - - - - - - - - 10.15* - 12.24* 2.91 - 5.91 8.13* - LYMPHABS - - - - 2.29 1.60 2.46 - 1.69 - 2.34 - - 2.37 2.48 - BASOABS - - - - 0.06 0.03 0.04 - - - - - - 0.02 0.03 - - = values in this interval not displayed. Recent Labs Component Name 07/29/24 0624 07/28/24 0702 07/27/24 0501 05/25/24 0643 05/24/24 0625 02/23/24 0737 02/22/24 2214 06/10/23 0939 12/02/22 1955 08/25/22 0315 08/24/22 1404 08/24/22 0725 08/22/22 0317 08/21/22 0847 SODIUM - - - - - - - - - 142 143 138 - 146* POTASSIUM 4.5 4.2 5.6* - 4.2 - 4.1 4.1 - 3.6 3.7 5.2* - 2.9* CHLORIDE - - - - - - - - - 107 103 110* - 108* CO2 23 24 16* - 26 - 26 - 26 30 20* - 28 BUN 35* 29* 49* - 33* - 21 8 - 13 9 8 - 7 CREATININE 8.24* 6.64* 9.99* - 3.64* - 4.88* 1.96* - 1.58* 1.43* 1.42* - 1.62* GLUCOSE 127* 190* 150* - 240* - 261* 79 - 211* 145* 165* - 180* CALCIUM 8.2* 7.6* 7.7* - 8.5 - 8.8 8.3* - 7.9* 8.2* 7.8* - 8.2* ALT - - - - 25 - 11 8 - - - - - 11 ALKPHOS - - - - 170* - 221* 139 - - - - - 87 AST - - - - 14 - 7 12 - - - - - 5 TBIL - - - - - - - - - - - - - 0.3 TPROT - - - - - - - - - - - - - 5.5* EGFR 6* 8* 5* - 16* - 12* 35* - 45* 51* 51* - 44* ALBUMIN - - - - - - - - - 2.0* 2.1* 1.7* - 2.2* - = values in this interval not displayed. Recent Labs Component Name 07/25/24 2316 02/22/24 2214 04/26/23 0629 INR 1.2 1.2 1.3 Airway: Mallampati III (soft palate, base of uvula visible) ASA Class: {Class 3 - Severe Systemic Disease, Definite Functional Limitations Cardiac Instability: No Procedure Acuity Status: Elective Sedation: As per Cardiology Fentanyl and Versed Indication: Sedation is required to allow for performance of procedure. Monitoring: heart rate, night monitor, continuous pulse oximetry, frequent blood pressure checks,level of consciousness, IV access, constant attendance until patient recovered, and emergency airway equipment available. Other indicators of a difficult intubation include: Obesity Patient airway and condition has been evaluated immediately prior to sedation and/or analgesia: Yes Cardiology High Risk Variables Anemia in Chronic Disease - Anemia Were these present on admission? Yes Consent: Risk, benefits and alternatives were discussed with patient and consent for procedure was obtained. Abel Alvarenga MD 07/29/2024 10:09 AM * Natalee Quinn MD - 07/25/2024 9:26 PM CDT [facility] INTERNAL MEDICINE HISTORY & PHYSICAL NOTE Date of Admission: 07/25/2024 Patient: Leeroy Canales. Sex: female Age: [age] year old Date of : 1990 Code Status: Full Code SUBJECTIVE Chief Complaint: R shoulder pain History of Present Illness: Leeroy Canales is a 33 year old y/o female with PMH of T2DM, ESRD on HD TTS, HTN, HLD, hx of RUE DVT, anemia, PVD, blindness, s/p L AKA, HFpEF, prior hx of infectious arthritis presenting from [facility] for 3 day history of right shoulder pain. Patient states that she felt right shoulder pain upon waking up one morning and it has progressed to become a 10/10, deep throbbing pain that she also feels in her upper arm. Pain is more severe on movement. Denies any trauma to the area. Also reports that for about two weeks, she has been experiencing cold sweats and fevers. Of note, patient had admission from 05/23-06/03 for infectious arthritis of L shoulder; pt states this pain feels exactlythe same as her prior infection but in the opposite shoulder. Patient comes from a nursing facility where she was receiving rehab for prosthetic for LLE. At OSH labs revealed WBC 12.9k, Hb 10.3, plt 255; ESR 90, CRP 29.4; CMP remarkable for Na 131. Synovial fluid of R shoulder showing 92% neutrophils. Azithro, cefepime, vancomycin started at OSH. OSH imaging notable for the following: Shoulder x-ray showing mild osteoarthritis of acromioclavicular joint. Shoulder CT showing prominent erosive changes of the right humeral head and greater tuberosity, as well as the right coracoid process, prominent thickening of the shoulder capsule, right shoulder effusion CT chest abdomen pelvis showing bilateral pulmonary infiltrates suggesting bilateral pneumonia, cardiomegaly Past Medical History: Past Medical History: Diagnosis Date Essential (primary) hypertension Heart failure (HCC) Type 2 diabetes mellitus without complications (HCC) Past Surgical History: Past Surgical History: Procedure Laterality Date LEG AMPUTATION ABOVE KNEE Left 12/05/2022 Left; [...] 4-5 months after starting Vaping Use Vaping Use: Never used Substance and Sexual Activity Alcohol use: Not [...] No Stress: No Stress Concern Present (07/26/2024) [place] [employer] - Occupational Stress Questionnaire [...] FOUR TIMES DAILY BEFORE TESTING 100 Each PRN amLODIPine (Norvasc) 10 MG tablet Take 1 (one) tablet by mouth once daily bisacodyl (Dulcolax) 10 MG suppository Insert 1 (one) suppository into the rectum once daily as needed for Constipation blood glucose (OneTouch Verio) test strip USE ONE STRIP TO TEST BLOOD SUGAR FOUR TIMES DAILY 100 strip PRN Blood Glucose Monitoring Suppl (OneTouch Verio Reflect) w/Device KIT Use 1 kit 4 times daily USE METER TO CHECK BLOOD GLUCOSE FOUR TIMES DAILY Reasons: CALL [facility] WHEN DELIVERING X4364 1 kit 0 carvedilol (Coreg) 12.5 MG tablet Take 1 (one) tablet by mouth 2 times daily with morning and evening meal FeroSul 325 (65 Fe) MG tablet Take 1 (one) tablet by mouth daily with breakfast furosemide (Lasix) 40 MG tablet Take 1 (one) tablet by mouth every Friday, Friday & Friday 0 gabapentin (Neurontin) 100 MG capsule Take 1 (one) capsule by mouth 3 times daily insulin lispro (HumaLOG;ADMelog) 100 UNIT/ML pen Inject 0 (zero) Units to 6 (six) Units subcutaneously 3 times daily with meals (Patient not taking: Reported on 07/26/2024) Lancets (ONETOUCH DELICA PLUS 33G EXTRA FINE LANCET) USE ONE LANCET TO PRICK FINGER FOUR TIMES DAILY FOR BLOOD GLUCOSE TESTING 100 Each PRN lisinopril (Prinivil; Zestril) 20 MG tablet Take 1 (one) tablet by mouth once daily melatonin 3 MG tablet Take 1 (one) tablet by mouth nightly as needed for Insomnia nystatin (Mycostatin) 933759 UNIT/GM powder Apply to affected area 3 times daily oxyCODONE, immediate release, (Roxicodone) 10 MG tablet Take 1 (one) tablet by mouth every 4 hours as needed polyethylene glycol 3350 (Miralax) 17 g packet Take 17 (seventeen) g by mouth once daily (Patient not taking: Reported on 05/23/2024) renal vitamin (Dialyvite) tablet Take 1 (one) tablet by mouth once daily senna (Senokot) 8.6 MG tablet Take 1 (one) tablet by mouth once daily sevelamer carbonate (Renvela) 800 MG Take 1 (one) tablet by mouth 3 times daily with meals Current Medications: Scheduled: 0.9% NaCl 3 mL Intracatheter q8h azithromycin (Zithromax) IV 500 mg Intravenous q24h carvedilol 12.5 mg Oral BID WC cefepime 1 g Intravenous q24h ferrous sulfate 325 mg Oral QDAY WITH BREAKFAST furosemide 40 mg Oral MON, WED AND FRI gabapentin 300 mg Oral MON, WED AND FRI heparin 5,000 Units Subcutaneous q8h lisinopril 20 mg Oral QDAY renal vitamin 1 tablet Oral QDAY sevelamer carbonate 800 mg Oral TID WC vancomycin (VANCOCIN) IV dose per pharmacy Does not apply DIRECTED Continuous: PRN: SALINE LOCK, INSERT AND MAINTAIN AND 0.9% NaCl AND 0.9% NaCl acetaminophen dextrose IV for hypoglycemia OR dextrose IV for hypoglycemia OR glucagon glucose (Diabetic Use) gel HYDROmorphone oxyCODONE (immediate release) Review of systems: 10 points of review system reviewed and were unremarkable except as mentioned in the history of present illness. OBJECTIVE Vital Signs: Temp: [98.6 ??F (37 ??C)-100.7 ??F (38.2 ??C)] 98.6 ??F (37 ??C) Pulse: [79-87] 79 Resp: [19-20] 20 BP: (109-116)/(58-69) 110/62 Physical Exam: General: Black/ female in NAD; AAOx4; conversational; follows commands HEENT: NC/AT; EOMI; L eye with conjunctival injection Neck: Supple; no carotid bruit; no cervical LAD Chest: CTAB; no wheezes, crackles or rhonchi Cardiovascular: RRR, palpable 2+ radial pulses bilaterally Abdomen: Soft; +BS; non-tender; non-distended; no hepatosplenomegaly Extremities: No edema appreciated; L above-knee amputation Skin: Multiple lesions/discoloration noted on RLE; heel wrapped in bandage Neurological: CN II-XII grossly intact Psych: Normal mood and affect Lab Results: CBC: Recent Labs Component Name 07/25/24231506/03/24806/02/24 0552 WBC 13.0* 8.5 8.1 HGB 9.5* 10.3* 10.4* HCT 31.7* 33.8* 34.4* MCV 94.6 96.8 96.9 Coagulation Panel: Recent Labs Component Name 07/25/24231502/22/24221304/26/23 0629 PT 15.3* 14.6 16.3* INR 1.2 1.2 1.3 PTT 30.3 - 29.8 BMP: Recent Labs Component Name 07/25/24231506/03/24 00006/02/24 0552 NA 134* 138 136 POTASSIUM 4.7* 5.7* 5.2* CL 107 102 102 CO2 18* 28 28 BUN 36* 38* 33* CREATININE 7.46* 5.40* 4.74* CALCIUM 8.3* 9.3 8.9 Recent Labs Component Name 03/02/24 0338 03/01/24 0310 02/29/24 0127 MAGNESIUM 2.4 2.1 2.0 Recent Labs Component Name 07/25/24231506/03/24 0009 06/02/24 0552 PHOS 6.5* 4.5 4.3 Hepatic Panel: Recent Labs Component Name 07/25/24231506/03/24 00006/02/24 0552 05/25/24 0643 05/24/24 0625 02/22/24 2214 06/10/23 0939 AST - - - - 14 7 12 ALT - - - - 25 11 8 ALKPHOS - - - - 170* 221* 139 TBILI - - - - 0.1* 0.2 0.2 ALB 1.9* 2.1* 2.1* - 1.9* 1.5* 1.5* - = values in this interval not displayed. ABG: Recent Labs Component Name 05/17/23220512/03/22 1856 PH 7.39 7.28* Amylase/Lipase: Invalid input(s): AMYL , LIPA Thyroid Studies: No results for input(s): TSH , T4 in the last 47281 hours. Cardiac Enzymes: Recent Labs Component Name 04/27/23 0729 12/02/225 CKTOTAL 1,624* - TROPONINI - 0.023 Lipid Panel: Recent Labs Component Name 12/02/22 2033 LDLCALC 74 HDL 8* Significant Labs: Reviewed. Microbiology: Reviewed. Imaging & Studies: Reviewed. 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, with long-term current use of insulin (HCC) (POA: Yes) Pyogenic arthritis of right shoulder region, due to unspecified organism (HCC) (POA: Unknown) Pneumonia of both lungs due to infectious organism, unspecified part of lung (POA: Unknown) # Septic arthritis of R shoulder - OSH synovial fluild results showing cloudy, red fluid with 92% neutrophils, 2% lymphocytes, 6% macrophages; synovial RBC and nuc cells not performed - prior hx of L shoulder septic arthritis with similar symptoms PLAN: - continue cefepime, vancomycin, azithromycin - ortho consult in AM - consider consulting ID in AM for abx duration time - f/u blood cx drawn 07/25 # Pulmonary infiltrates # Possible pneumonia - CT chest/abd/pelvis from OSH showing bilateral pulmonary infiltrates - patient with subjective fevers over past 2 weeks as well as temperature up to 100.7 this admission - patient with orthopnea PLAN: - f/u CXR - procalcitonin - BNP # T2DM # ESRD on HD TTS - pt reports not taking any diabetes medications at home due to well-controlled A1c - last A1c 05/25/24: 6.2% PLAN: - consult nephrology in AM for HD management - continue to assess for signs of R IJ infection - continue home iron supplement - continue home Lasix 40 mg po MWF - continue home gabapentin MWF - continue home renal vitamin, sevelamer # PVD # R heel ulcer - Wound care # HTN # HLD # Anemia # HFpEF - last TTE 05/21 showing EF 74% with grade II diastolic dysfunction - continue home carvedilol 12.5 mg bid, lisinopril 20 mg daily Code: Full Diet: Renal Electrolytes: Replete PRN PPx: subq heparin Access: R IJ TDC Dispo: Admit to Medicine. The above assessment and plan will be discussed with the attending. This note is not final until attested by attending physician. Natalee Quinn MD PGY-1 Internal Medicine Resident [facility] Associated attestation - Chano Heard MD - 07/26/2024 6:44 AM CDT I have seen and examined the patient with the resident and I agree with the findings and plan of care as documented by the resident. 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 Indication: ESRD BFR: 350ml UF: 3L Access: LIJ juan catheter Blood cultures in process Patient stable on HD and tolerating well Prescription of dialysis adjusted as indicated. Case discussed with house-staff. Labs and Vitals reviewed Brief Hx: ESRD 2/2 DM2 on HD TTS and other co morbidities as noted in house staff note p/w right shoulder pain,imaging concerning for OM in the setting of known pyogenic arthritis, Nephrology consulted for HD needs Underwent I&D 07/27 Dialysis tunneled catheter was removed on July 28 to give a line free holiday in the settingof the positive blood cultures and a Trialysis temporary catheter was placed in the left IJ due to concerns of a DVT in the right IJ. A&P: ESRD on HD TTS HD today Permcath when Bcx negative Anemia of CKD NEELAM 5K on HD CKD- BMD On renvella [id number] tid C/w Vit D supplements Aneta Lopez MD Nephrology Attending * Aneta Lopez MD - 07/31/2024 2:28 PM CDT Nephrology Attending Physician Patient seen by me and examined on hemodialysis on 07/31/2024 at 12:15PM. Indication: ESRD BFR: 350ml UF: 3L Access: LIJ juan placed on 07/30 by IN Patient tolerating HD well, UF increased to 3L as noted new needs of O2. A left IJ temporary Juan catheter was placed by Interventional Nephrology on July 30 as blood cultures continue to be positive. Awaiting final cultures which were taken on July 30. We will plan for a permanent dialysis catheter when cultures are finally negative Labs and vitals reviewed On examination NAD RRR Chest with course breath sounds NT ND Abd No edema ESRD 2/2 DM2 on HD TTS and other co morbidities as noted in house staff note p/w right shoulder pain,imaging concerning for OM in the setting of known pyogenic arthritis, Nephrology consulted for HD needs Underwent I&D 07/27 Dialysis tunneled catheter was removed on July 28 to give a line free holiday in the settingof the positive blood cultures and a Trialysis temporary catheter was placed in the left IJ due to concerns of a DVT in the right IJ. A&P: ESRD on HD TTS HD today via LIJ juan Anemia of CKD NEELAM 5K on HD CKD- BMD On renvella [id number] tid C/w Vit D supplements Prescription of dialysis adjusted as indicated. Case discussed with house-staff. Aneta Lopez MD * Husam Palacios MD - 07/30/2024 5:12 PM CDT Brief Procedure Note - Interventional Nephrology Leeroy Erik Canales 1990 Date of procedure: 07/30/24 Procedure: Trialysis catheter placement [facility] Correctional Supervisor Lieutenant: Husam Palacios Complications: None CXR reviewed Trialysis catheter ok to use. Full procedure note and images in [email or web address] and [employer] (Results/Interventional) Dr.Posan Jas Palacios Nephrology Attending [facility] 07/30/24 5:13 PM * Nicolás Truong DO - 07/28/2024 7:17 PM CDTAssociated Order(s): IR CENTRAL LINE REMOVAL [facility] Department of Nephrology Procedure Note Procedure: Permcath [...] was injected subcutaneously around the catheter tract. Using a sterile dilator, the cuff of the [...] approximately 2 ml.The area was covered with steristips, a clean gauze and a Tegaderm The patient tolerated the procedure well. Nicolás Truong DO Nephrology Fellow [facility] * Aneta Lopez MD - 07/27/2024 4:11 PM CDT Nephrology Attending Physician Patient seen by me and examined on hemodialysis on 07/27/2024 at 3:50PM. Indication: ESRD BFR: 320ml UF: 2L Bath: 2K/2.5ca Access: RIJ TDC BP: 134/74 Tolerating HD well, post procedure (I&D) looks drowsy c/o shoulder pain on right side Prescription of dialysis adjusted as indicated. Case discussed with house-staff. Vitals reviewed Labs reviewed NAD RRR Clear chest No extremity edema Left AKA ESRD 2/2 DM2 on HD TTS and other co morbidities as noted in house staff note p/w right shoulder pain,imaging concerning for OM in the setting of known pyogenic arthritis. Nephrology consulted for HD needs Underwent I&D 07/27 A&P: ESRD on HD TTS HD today via RIJ TDC Anemia of CKD NEELAM 5K on HD CKD- BMD Please start renvella 800mg tid Aneta Lopez MD * Rob Toscano MD - 07/26/2024 12:39 PM CDT Orthopaedic Surgery Procedure Note Diagnosis: Right shoulder pain Procedure: Aspiration of the Right shoulder. Indications: Leeroy Canales is a 33 year old female who has Right shoulder pain and swelling. Thereis concern for septic joint. The patient's WBC is 11.9K, ESR is 120 and CRP is 28.3. Procedure Details: Aspiration of Right shoulder joint. The patient was informed of her condition, and the need to work up possible septic joint. The patient was counseled as to the risks and benefitsof the procedure. The patient was understanding and agreeable. The patient was placed into the standard sitting position. The area was prepped with Cloraprep and draped in the usual sterile fashion. The patient's Right shoulder was entered with a 18 Ga needle and utilizing the posterior portal. Confirmation of location inside the joint was evidenced by pus. Approximately 15mL of fluid was aspirated. The needle was removed and the needle site dressed with asemi-sterile bandage. The aspirate willbe sent for gram stain, aerobic/anaerobic culture, cell count and crystal analysis. Remainder of plan per note. Rob Toscano MD 07/26/2024 12:39 PM Associated attestation - Tao Chapman MD - 07/27/2024 7:11 AM CDT I have reviewed the history and pertinent physical findings on clinical exam of the patient. I agree with the residents assessment and I personally examined the patient myself with the crucial physical findings as noted below. As noted hx of right shoulder pain whicih has been recurrent. Xray changes consistent with lesions in humeral head and appears as acute on chronic septic joint with erosion noted in humeral head. Plan for aspiration of rignt shoulder joint.If positive for infection Will need I and D with drainage and possible AB bead placement ( resorbable)... Plan for aspiration of right shoulder joint. Awaiting aspirtation results. documented in this encounter Consult Notes * Orquidea Jaramillo MSW - 07/28/2024 2:17 PM CDTAssociated Order(s): IP CONSULT TO HEAD HOUSEKEEPER Social Work Progress Note [facility] Anticipated Discharge Date: 08/02/2024 Contacts: Extended Emergency Contact Information Primary Emergency Contact: Silvia Resendiz Mobile Relation: Mother Clerical Coordinator needed? No Secondary Emergency Contact: GAYE BEAL Mobile Relation: Sister Clerical Coordinator needed? No Comments: PADMINI called [facility] to confirm pt is able to return to facility upon dc. Facility confirmed pt is a resident there and can return anytime. Her room number is 615. Address for facility is [address] [place] [address]. SW to follow. Name/Phone number: Orquidea Jaramillo, VERONIKA 2469 * Kg Cali MD - 07/28/2024 12:01 PM CDT Vascular Surgery Consult Note ADMIT: 07/25/2024 8:15 PM LOS: 3 days 1 Day Post-Op 07/28/2024 History of Present Illness: Leeroy Canales is a 33 year old female with PMHx s/f T2DM, ESRD on HD (/Fri) via tunneled cath (patient states she was recommended against AVF due to high risk for stroke/ and because she has too small vein diameters), HTN, HLD, Hx of RUE DVT, PVD s/p L AKA (12/2022) with Dr. Rodgers, blindness, HFpEF (EF 55%) who presented to OSH with right shoulder pain. Recently had L shoulder infection 05/23-06/03. Presented from a rehab nursing facility for prosthetic use for L AKA. Workup revealed infectious joint and Abx begun (Azithro, Cefepime, Vanc) at OSH. Transferred to [facility] for Ortho and IDafter imaging obtained showing significant erosive findings of shoulder girdle and pneumonia. Cultures obtained by ortho indicate septic arthritis. Subsequently underwent arthrotomy, I&D, and synovectomy with Ortho 07/27. Also found to be bacteremic with MRSA. Vanc started with dialysis with Nephro. Vascular consulted due to c/f deep foot wound of R foot as source for bacteremia. CT of R foot with contrast pending. Labs stable with WBC of 11. Cr downtrending 6.64 (9.99). Blood cultures obtained 07/26 positive for MRSA. Patient states she had a couple scabs on RLE from prior to last admission but antibiotics increasedimpulse to itch and has since gotten much worse - picture in chart. Has no numbness, tingling currently but states tingling is intermittent. Has intact sensation and motor function. Mentions not allowed to walk more than 3 feet at rehab due to foot wound. They have been managing it with wound care but Pt states it is inconsistent. Denies pain with exploration of wound at bedside using a clean q-tip. Past Medical History: Past Medical History: Diagnosis [...] LEFT ANKLE DISARTICULATION LEVEL 2 @ 2220 Home Medications: Current Facility-Administered Medications Medication 0.9% NaCl injection 3 mL And 0.9% NaCl injection 1-10 mL 0.9% NaCl injection 10 mL acetaminophen (Tylenol) tablet 650 mg ammonium lactate (Lac-Hydrin) 12 % lotion carvedilol (Coreg) tablet 12.5 mg dextrose 10 % IV bolus Or dextrose 10 % IV bolus Or glucagon (Glucagen) injection 1 mg epoetin carlin-EPBX (Retacrit) 5,000 unit injection ferrous sulfate tablet 325 mg furosemide (Lasix) tablet 40 mg gabapentin (Neurontin) capsule 300 mg glucose (Diabetic Use) oral gel heparin injection 1,000 Units heparin injection 1,000 Units heparin injection 5,000 Units HYDROmorphone (Dilaudid) injection 0.6 mg iopamidol (Isovue 370) 76 % contrast lisinopril (Prinivil; Zestril) tablet 20 mg oxyCODONE (immediate release) (Roxicodone) tablet 5 mg perflutren lipid microsphere (Definity) injection 0.5 mL renal vitamin (Dialyvite) tablet 1 tablet sevelamer carbonate (Renvela) tablet 800 mg vancomycin (Vancocin) IV dose per pharmacy Allergies: No Known Allergies Social History: Social History Socioeconomic History Marital status: Single Tobacco Use Smoking status: Former Types: Cigarettes Start date: 2010 Smokeless tobacco: Never Tobacco comments: Quit 4-5 months after starting Vaping Use Vaping Use: Never used Substance and Sexual Activity Alcohol use: Not Currently Comment: Occassionally Drug use: Not Currently Types: Marijuana Comment: At age 20 for 4-5 months Sexual activity: Not Currently Family History: Family History Problem Relation Name Age of Onset Diabetes - Type 2 Mother Hypertension Mother Diabetes - Type 2 Father Hypertension Father Diabetes - Type 2 Paternal Grandmother Hypertension Paternal Grandmother Review of Systems: Pertinent positives of ROS are listed above Objective: BP 125/70 (BP Location: Left arm, Patient Position: Lying) Pulse 81 Temp 98.7 ??F (37.1 ??C) (Axillary) Resp 20 Ht 1.702 m (5' 7 ) Wt 113.5 kg (250 lb 3.2 oz) SpO2 99% Physical Exam: Gen: NAD and A&O x 3 ENT: Normocephalic and EOMI Resp: unlabored breathing on RA CV: RRR Abd: Soft, Non-distended, and Non-peritoneal, no rebound/guarding MSK: L AKA stump well healed; excoriations of RLE with multiple scabs and dry skin; 2cm diameter open wound to heel without pain; able to feel bone with exploration, malodorous right foot; pulse exam: Present palpable R DP/PT Psych: Appropriate mood and affect Labs: CBC: Lab results smartLinks are not currently available BMP: Lab results smartLinks are not currently available Recent Labs Component Name 07/28/24 0702 07/27/24 0501 07/26/24 0850 WBC 11.0* 11.7* 11.9* HGB 9.4* 9.0* 9.7* HCT 29.5* 28.7* 31.6* Recent Labs Component Name 07/28/24 0702 07/27/24 0501 07/26/24 0850 05/24/24 0625 03/02/24 0338 03/01/24 0310 02/29/24 0127 NA 136 132* 133* - 137 135* 135* CL 102 105 108* - 102 106 104 CO2 24 16* 14* - 25 21* 24 BUN 29* 49* 38* - 39* 28* 16 CREATININE 6.64* 9.99* 8.40* - 7.43* 5.80* 3.73* CALCIUM 7.6* 7.7* 8.1* - 8.8 8.8 8.3* MAGNESIUM - - - - 2.4 2.1 2.0 - = values in this interval not displayed. Recent Labs Component Name 07/28/24 0702 07/27/24 0501 07/26/24 0850 05/25/24 0643 05/24/24 0625 02/22/24 2214 06/10/23 0939 PROT - - - - 7.2 8.1 5.8* ALB 1.7* 1.6* 1.8* - 1.9* 1.5* 1.5* TBILI - - - - 0.1* 0.2 0.2 AST - - - - 14 7 12 ALT - - - - 25 11 8 ALKPHOS - - - - 170* 221* 139 - = values in this interval not displayed. Imaging: CT Right Foot with Contrast: IMPRESSION: Wound at the plantar aspect of the hindfoot overlying the calcaneal tuberosity. Changes in the underlying calcaneus compatible with sequela of osteomyelitis. Assessment: Leeroy Canales is a 33 year old female with Hx of well healed L AKA, ESRD on HD with tunneled cath, recent MRSA bacteremia, and R shoulder septic arthritis with open R foot wound. Vascular surgery consulted for right foot wound possibly needing surgical intervention. Patient is afebrile, clinically stable, without pain, numbness, tingling, with intact sensation andmotor function of R foot, and palpable DP/PT pulses. With a chart review of prior pictures, seems that her wound is actually improving. However, with palpable bone on physical exam, recent MRSA bacteremia, and c/f osteomyelitis on imaging, patient will need surgical intervention. Plan: - No acute surgical intervention at this time due to patient's preference - Recommend local wound care per wound nurse - Rest of care per primary team, please call with any questions or concerns - Vascular surgery will sign off at this time Patient staffed with senior resident, Dr. Cali, and will be staffed with attending, Dr. Rodgers. Note to be updated with any changes. Jefry Rojas, DO General Surgery Resident, PGY-1 [facility] 07/28/24 12:34 PM Senior resident addendum In brief, patient with chronic right foot wound over last year. Prior ABIs without significant vascular disease. She is presenting with MRSA bacteremia and is now s/p shoulder I&D from orthopedics. Her heel wound is malodorous with purulent discharge. CT scan with sequale of osteomyelitis. I discussed this finding with patient and recommended that we would proceed with amputation. Patient stated she is not interested. I discussed risks of not proceeding given wound to foot that included wound never healing, worsening of infection, sepsis, . Patient does not want surgery and understands the risks. Vascular to sign off. Call if patient would like to undergo amputation. Kg Cali MD General Surgery Resident, PGY3 07/28/2024 4:22 PM * Roxanna Roth PA-C - 07/27/2024 1:41 PM CDTAssociated Order(s): IP CONSULT TO INFECTIOUS DISEASES [facility] Infectious Diseases Consultation Patient Name: Leeroy Canales 1990 Room: [facility] [place] Date of Admission: 07/25/2024 Date of Service: 07/27/2024 Primary Care Physician: CHERISE MARCELO PA-C Attending Physician: Geronimo Burleson,* Reason for Infectious Disease Consultation Recurrent septic arthritis IMPRESSION MRSA bacteremia Right shoulder pyogenic arthritis Right shoulder osteomyelitis Pneumonia Cervical spine pain Right heel ulcer, chronic ESRD on HD RECOMMENDATIONS - Continue with IV vancomycin - Discontinue IV cefepime - Discontinue azithromycin - Please continue to obtain 2 sets of blood cultures every 24-48 hours until negative for > 72 hours on 2 consecutive days - Recommend MRI cervical spine wwo contrast - Recommend MATT with recurrent septic arthritis shoulder - Continue to follow operative cultures until complete - Continue to follow right shoulder aspiration cultures from [facility] - Recommend removal of tunneled dialysis line - Recommend venous doppler RUE for evaluation of thrombus / DVT - Please obtain CBC w diff, CMP, ESR, CRP, vancomycin trough at least weekly while on IV antibiotics. Please call the [place] [facility] pager [phone] with any questions. Updated care plan discussed with Dr. Burleson at patient bedside. DISCUSSION Leeroy Canales is a 33 year old female with PMH of T2DM, ESRD on HD TTS, HTN, HLD,hx of RUE DVT, anemia, PVD, blindness, s/p L AKA, HFpEF, prior hx of infectious arthritis presenting as OSH transfer from [facility] for 3 day history of right shoulder pain. Recurrent MRSA bacteremia - 07/25: Bcx 2/ MRSA - 07/26: Bcx In process - Potential Sources: Dialysis catheter, shoulder septic arthritis, pneumonia, chronic right heel ulcer - Source control: - Recommend right tunneled dialysis catheter removal - s/p OR I&D right shoulder 07/27 - Evaluation: Obtain MATT, Obtain MRI cervical spine wwo Contrast, Follow read CT CAP w contrast 07/27, venous doppler RUE. - On IV vancomycin Right shoulder pyogenic arthritis Right shoulder osteomyelitis - OSH CT right shoulder: prominent erosive changes of the right humeral head and greater tuberosity, as well as the right coracoid process, prominent thickening of the shoulder capsule, right shoulder effusion - 07/25: OSH right shoulder aspiration, gram stain with GPC in clusters, cultures in process - 07/26: X-rays right shoulder concerning for osteomyelitis. - 07/26: Shoulder aspiration: Fluid with 219,660 nucleated cells, 97% neutrophils. Path - Acute inflammatory infiltrate, Intracellular microorganisms, minimal blood contamination. Cultures with Staphaureus, pending [facility]. - 07/27: OR for right shoulder I&D. Multiple purulent pockets. Cultures in progress. - On IV vancomycin Pneumonia - OSH CT CAP with bilateral pulmonary infiltrates suggesting bilateral pneumonia, cardiomegaly. - Repeat CT CAP 07/27 in process - On IV azithromycin from OSH. On IV vancomycin. Cervical spine pain - likely referred from right shoulder, however, Recommend MRI CSpine wwo contrast for evaluation ofosteomyelitis in the setting of MRSA bacteremia Chronic right heel ulcer - No change, continues with wound care - No apparent infection based on images in chart - Previously treated for osteomyelitis ESRD on HD - Tunneled dialysis catheter should be removed, replacement in different position once blood cultures clear. CDC Screening - Previous HIV and hepatitis C screening negative QTC: 452 (05/17/2024) Renal Function: Estimated Creatinine Clearance: 10.6 mL/min (A) (by C-G formula based on SCr of 9.99 mg/dL (H)). Hardware: None Thank you for for this interesting consult. We will continue to follow and monitor with you closely. Please call the [place] [facility] pager [phone] with any questions. I spent 60 mins in the care of this patient to include chart review, coordination of care, and patient interview / examination / education independent from the attending physician. I spent an additional 10 mins in discussion with attending physician Dr. Ramirez regarding patient case. Patient seen and examined, case discussed with ID attending. JESSICA Sorensen, PA-C Division of Infectious Diseases Contact: [employer] Chat preferred ID Clinic ID Clinic Subjective History of Present Illness: Leeroy Canales is a 33 year old female with PMH of T2DM, ESRD on HD TTS, HTN, HLD, hx of RUE DVT, anemia, PVD, blindness, s/p L AKA, HFpEF, prior hx of infectious arthritis presenting as OSH transfer from [facility] for 3 day history of right shoulder pain. Patient reports that her neck started hurting about 1 week ago and her shoulder pain started 3 days prior to presenting to [facility]. Patient states that she felt right shoulder pain upon waking up one morning and it has progressed to become a 10/10, deep throbbing pain that she also feels in her upper arm. Pain is more severe on movement. Denies any trauma to the area. Also reports that for about two weeks, she has been experiencing cold sweats and fevers. Patient comes from a nursing facility ([facility]) where she was receiving rehab for prosthetic for LLE. At [facility] (OSH) labs revealed WBC 12.9k, Hb 10.3, plt 255; ESR 90, CRP 29.4; CMP remarkable for Na 131. Synovial fluid of R shoulder showing 92% neutrophils. Azithro, cefepime, vancomycin started at OSH. OSH imaging notable for the following: Shoulder x-ray showing mild osteoarthritis of acromioclavicular joint. Shoulder CT showing prominent erosive changes of the right humeral head and greater tuberosity, as well as the right coracoid process, prominent thickening of the shoulder capsule, right shoulder effusion CT chest abdomen pelvis showing bilateral pulmonary infiltrates suggesting bilateral pneumonia, cardiomegaly . Patient transferred to [facility] on 07/25/2024 for further evaluation of bilateral pneumonia and Right shoulder pyogenic arthritis. ID consulted for antibiotic management in the setting of recurrent pyogenic right shoulder. Patient reports tunneled dialysis line was placed in February 2024, has never been removed or replaced. Previous [facility] Hx: 04/26/2023 -05/09/2023: Presented for for foot osteomyelitis. Discharged with IV vancomycin, IV cefepime, PO flagyl. Discharge complicated by RUE DVT brachial vein causing readmission. Patient completedtherapy with doxycycline 100 mg BID, ciprofloxacin 750 mg BID, and flagyl 500 mg TID. EOT 06/07/2023. 02/22/2024 - 03/02/2024: Presented for MRSA bacteremia, left pectoralis abscess with concerns for osteomyelitis of left shoulder. Abscess near left shoulder aspiration by IR with 11 ml Pus, gram stain no organisms and culture no growth. Right shoulder aspirated with 4300 WBC (not concerning for septic arthritis per previous ID note. Patient treated with 6 weeks of antibiotics with EOT 04/07/2024 - was discharged on vancomycin and at some point transitioned to PO linezolid to complete treatment. 05/23/2024 - 06/03/2024: Presented to [facility] with left shoulder pain, found to have left shoulder septicbursitis, ?osteomyelitis. During this admission, blood cultures negative. OSH aspiration culture negative. [facility] shoulder aspiration culture negative. Synovial fluid with 6k nucleated cells, 83% neutrophils. MRI left shoulder consistent with septic bursitis but no osteomyelitis. Evaluated by rheumatology with no signs of inflammatory arthropathy. Treated with 4 weeks IV vancomycin, IV cefepime, EOT 06/21/2024. Hospital Course: 07/25: Bcx (2/2) +MRSA 07/26: Right shoulder aspiration. 219,660 nucleated cells, 97% neutrophils. Path - Acute inflammatory infiltrate, Intracellular microorganisms, minimal blood contamination. GPCs on gram stain. Cultures in progress. 07/27: OR with ortho for I&D of right shoulder. Per op note: copious purulence noted in subdeltoid region, 85-90 mL evaluated from joint. Walled-off purulence identified from posterior aspect of humeral head as well as infraglenoid pouch. Purulence up and down bicipital tendon found. Cultures inprogress. Interval history: 07/27/2024 (today): Patient in HD. Continues to have fevers and chills. No nausea / vomiting / diarrhea / rashes / itching. Continues to have severe pain in right shoulder. Has some pain in the neck. No other joint pain. No shortness of breath / cough / difficulty breathing. Currently on IV vancomycin, IV cefepime, IV azithromycin. CT CAP w contrast completed today pending read. WBC 11.7, CRP 28.3, ESR 120. Creatinine 9.99, GFR 5. Medical History Past Medical History: Diagnosis Date Essential (primary) hypertension Heart failure (HCC) Type 2 diabetes mellitus without complications (HCC) Surgical History Past Surgical History: Procedure Laterality Date LEG AMPUTATION ABOVE KNEE Left 12/05/2022 Left; AMPUTATION ABOVE LEFT KNEE Leg Amputation, Below Knee Left 12/02/2022 Left; LEFT ANKLE DISARTICULATION LEVEL 2 @ 2220 Social History Smoking: Former, quit Alcohol: denies history Illicit drugs/IV drug use: Denies history Marital status: Single Children: No Living situation: Resides at [place], [place] Travel Hx: no international travel Sick contacts: denies recent contacts HIV status: Negative 02/2024 Hepatitis Status: Negative 05/2024 Prosthetic / Implant History: None Immunizations: Immunization [...] Review of Systems Review of Systems Constitutional: Positive for chills, fever and malaise/fatigue. HENT: Negative. Eyes: Blind Respiratory: Negative. Cardiovascular: Negative. Gastrointestinal: Negative. Genitourinary: Negative. Musculoskeletal: Right shoulder pain, neck pain Skin: Negative for itching and rash. Chronic right heel ulcer Neurological: Negative. Endo/Heme/Allergies: Negative. Psychiatric/Behavioral: Negative. Allergies No Known Allergies Antimicrobial History Current Antibiotics IV cefepime (07/26 -) IV azithromycin (07/26 - ) IV vancomycin (07/26 - ) Prior Antibiotics At [facility] IV cefazolin (07/27) - intraop Prior Antibiotics at OSH Home Medications Prior to Admission medications Medication Sig Start Date End Date Taking? Authorizing Provider acetaminophen (Tylenol) 500 MG tablet Take 1 (one) tablet by mouth every 4 hours Maximum allowable Acetaminophen amount = 4 Grams (4000 mg) / 24 hours. 03/02/24 Yes Martine Morrissey MD Alcohol Swabs (Alcohol Prep) 70 % USE ONE SWAB TO CLEAN SKIN FOUR TIMES DAILY BEFORE TESTING 12/12/22Amanda Georges MD amLODIPine (Norvasc) 10 MG tablet Take 1 (one) tablet by mouth once daily 02/28/24 Yes Geronimo Burleson MD bisacodyl (Dulcolax) 10 MG suppository Insert 1 (one) suppository into the rectum once daily as needed for Constipation 02/28/24 Geronimo Burleson MD blood glucose (OneTouch Verio) test strip USE ONE STRIP TO TEST BLOOD SUGAR FOUR TIMES DAILY 12/12/22Yes Amanda Georges MD Blood Glucose Monitoring Suppl (OneTouch Verio Reflect) w/Device KIT Use 1 kit 4 times daily USE METER TO CHECK BLOOD GLUCOSE FOUR TIMES DAILY Reasons: CALL [facility] WHEN DELIVERING [id number] 12/12/22 Amanda Georges MD carvedilol (Coreg) 12.5 MG tablet Take 1 (one) tablet by mouth 2 times daily with morning and evening meal 12/12/22 Yes Kovaleva, Rosi V., [employer] FeroSul 325 (65 Fe) MG tablet Take 1 (one) tablet by mouth daily with breakfast 08/08/22 Yes Provider, MD Rebel furosemide (Lasix) 40 MG tablet Take 1 (one) tablet by mouth every Friday, Friday & Friday05/23/23 Yes Willard Estrella MD gabapentin (Neurontin) 100 MG capsule Take 1 (one) capsule by mouth 3 times daily 12/27/22 Yes ProviderRebel MD insulin lispro (HumaLOG;ADMelog) 100 UNIT/ML pen Inject 0 (zero) Units to 6 (six) Units subcutaneously 3 times daily with meals Patient not taking: Reported on 07/26/2024 05/09/23 Joe Vargas MD Lancets (ONETOUCH DELICA PLUS 33G EXTRA FINE LANCET) USE ONE LANCET TO PRICK FINGER FOUR TIMES DAILY FOR BLOOD GLUCOSE TESTING 12/12/22 Amanda Georges MD lisinopril (Prinivil; Zestril) 20 MG tablet Take 1 (one) tablet by mouth once daily 02/29/24 Yes Geronimo Burleson MD melatonin 3 MG tablet Take 1 (one) tablet by mouth nightly as needed for Insomnia 05/09/23 Yes Joe Vargas MD nystatin (Mycostatin) 630026 UNIT/GM powder Apply to affected area 3 times daily 12/12/22 Yes Rosi Menard V., [employer] oxyCODONE, immediate release, (Roxicodone) 10 MG tablet Take 1 (one) tablet by mouth every 4 hours as needed 06/03/24 Yes Franck Hennessy MD polyethylene glycol 3350 (Miralax) 17 g packet Take 17 (seventeen) g by mouth once daily Patient not taking: Reported on 05/23/2024 02/28/24 Geronimo Burleson MD renal vitamin (Dialyvite) tablet Take 1 (one) tablet by mouth once daily 02/28/24 Geronimo Burleson MD senna (Senokot) 8.6 MG tablet Take 1 (one) tablet by mouth once daily 02/28/24 Geronimo Burleson MD sevelamer carbonate (Renvela) 800 MG Take 1 (one) tablet by mouth 3 times daily with meals 02/28/24 Geronimo Burleson MD Objective Vitals BP 102/59 (BP Location: Left arm, Patient Position: Lying) Pulse 73 Temp 97.8 ??F (36.6 ??C) (Oral) Resp 18 Ht 1.702 m (5' 7 ) Wt 113.5 kg (250 lb 3.2 oz) SpO2 97% Temp (24hrs), Av.8 ??F (37.1 ??C), Min:97.8 ??F (36.6 ??C), Max:99.8 ??F (37.7 ??C) Physical Exam PHYSICAL EXAM General: Alert, no distress, not toxic appearing, laying in bed, receiving HD Head: Normocephalic, atraumatic EENT: Blind, anicteric sclera. Nose Normal. No thrush. Dentition Fair. Neck: Supple Chest wall: No tenderness or deformity, right tunneled HD catheter present with no acute signs of infection Lungs: Clear to auscultation bilaterally, no wheezes, rales, rhonchi. Heart: RRR, S1, S2 normal, no murmur, gallops, or rubs. Abdomen: Soft, non-distended, non-tender, no organomegaly or masses. +BS Extremities: Left AKA. Right lower leg with edema and chronic venous changes, right heel ulcer, will assess at different evaluation when not in HD. Right shoulder with post surgical dressing Skin: No rashes. Neurologic: Alert and oriented x 3, moving all extremities Psychiatry: Appropriate mood/affect Lines: Right Tunneled IJ dialysis catheter, PIV left antecubital Lab Review CBC: Recent Labs Component Name 07/27/24 0501 07/26/24 0850 07/25/24 2316 WBC 11.7* 11.9* 13.0* RBC 3.08* 3.38* 3.35* HGB 9.0* 9.7* 9.5* HCT 28.7* 31.6* 31.7* MCV 93.2 93.5 94.6 BMP: Recent Labs Component Name 07/27/24 0501 07/26/24 0850 07/25/24 2316 05/25/24 0643 05/24/24 0625 02/23/24 0737 02/22/24 2214 06/10/23 0939 NA 132* 133* 134* - 139 - 136 143 CL 105 108* 107 - 104 - 100 110* CO2 16* 14* 18* - 26 - 26 25 BUN 49* 38* 36* - 33* - 21 8 CREATININE 9.99* 8.40* 7.46* - 3.64* - 4.88* 1.96* ALB 1.6* 1.8* 1.9* - 1.9* - 1.5* 1.5* PROT - - - - 7.2 - 8.1 5.8* - = values in this interval not displayed. estimated creatinine clearance is 10.6 mL/min (A) (by C-G formula based on SCr of 9.99 mg/dL (H)). LFTs: Recent Labs Component Name 05/24/24 0625 02/22/24221306/10/23 0939 12/02/22 1955 08/25/22 0315 08/24/22 1404 08/24/22 0725 ALKPHOS 170* 221* 139 - - - - ALT 25 11 8 - - - - AST 14 7 12 - - - - ALBUMIN - - - - 2.0* 2.1* 1.7* - = values in this interval not displayed. Coagulation: Recent Labs Component Name 07/25/24231502/22/24221304/26/23 0629 PT 15.3* 14.6 16.3* INR 1.2 1.2 1.3 PTT 30.3 - 29.8 ESR: Recent Labs Component Name 07/25/24231505/24/24 0548 02/23/24 0737 ESR 120* 114* 116* CRP: Recent Labs Component Name 07/25/24231505/24/24 0625 02/23/24 0737 CRP 28.3* 1.4* 8.3* CK: No results for input(s): CK in the last 79825 hours. Microbiology, Imaging and other diagnostic tests MICROBIOLOGY: Blood culture: 07/25/2024: MRSA (2/2) 07/26/2024: in process Right shoulder aspiration bedside 07/26/2024: Gram stain: Heavy PMNs, Light GPCs Culture in progress Fluid: 219,660 nucleated cells, 97% neutrophils. Path - Acute inflammatory infiltrate, Intracellular microorganisms, minimal blood contamination Right shoulder I&D OR 07/27/2024: Cultures in progress Other Serologies: 05/31/2024: Hepatitis C non-reactive 02/24/2024: HIV non-reactive HISTOPATHOLOGY: None at this admission IMAGING & PROCEDURES: Pertinent images independently reviewed; report in chart CT CHEST ABDOMEN PELVIS W CONTRAST 07/27/2024 - Read in process Associated attestation - Yovany Ramirez MD - 07/27/2024 7:09 PM CDT ..I personally saw, examined, evaluated the patient. I reviewed the history, ROS, medications, data, laboratory data, diagnostic studies that are mentioned and documented in this note. I discussed the case, management and formulated the plan with the advanced practitioner. Patient with history of ESRD on HD, chronic R heel ulcer and recurrent joint infections on admission for: MRSA bacteremia Right shoulder pyogenic arthritis Right shoulder osteomyelitis -S/p I & D -Obtain repeat blood cultures;follow blood cultures -Continue IV Vancomycin -Obtain MATT -Dialysis catheter will need to be removed. Yovany Ramirez MD MPH CWSP The total time spent today was 10 minutes performing chart prep, reviewing data and visit with the patient which was independent of the nurse practitioner. * Nicolás Truong DO - 07/26/2024 6:30 PM CDTAssociated Order(s): IP CONSULT TO NEPHROLOGY [facility] Nephrology Consult Note Date of Admission: 07/25/2024 Date of Service: 07/26/2024 Consulting Service: Green Team Reason for Consult: ESRD Brief Hospital Course: Leeroy Canales is a 33 year old female w/ PMH significant for ESRD on HD TTS, HTN, HLD, T2DM (diagnosed age 17) c/b retinopathy w/ blindness, hx of RUE dvt, PVD s/p L BKA, HFpEF (70-75% 05/2023), who was transferred from [facility] to [facility] 07/26/24 for R shoulder pain w/ concerns for septic arthritis requiring orthopedic surgery intervention, previously at rehab center from prior hospital discharge Upon arrival tmax 100.7F, at time of assessment 99, BP 107/62 HR 90s satting well on RA, labs sig for K elev 5.3, phos 7.4 up from 6.5 bicarb low 14, lactic wnl 0.6 BUN 38 Cr 8.4 CRP 28.3H, ESR 120H procal 2.18, bcx obtained and started on vanc/cefepime/azithromycin for concern for BL pleural effusions at OSH and septic arthritis. Has recent hx of L shoulder septic arthritis 05/23-06/03 and says pain very similar. Reports last iHD was sat 07/24 no issues, uses RIJ perm cath replaced 02/2024, previously also had RIJ perm cath but due to bacteremia in 02/2024 had to be briefly removed has been on iHDfor past 1 year, has had vein mapping in past 06/16/24but / smaller caliber veins unable to get fistula or graft per surgical eval at [facility] unable to locate records Dialysis Center: [facility] Dialysis Days: TTS Date if last dialysis: sat 07/24/24 Access: R-IJ Permcath Dialysis Duration: 3 Hours 30 Minutes Solution Professional: Dr Mak Review of Systems (positives are bolded) CONSTITUTIONAL: fatigue, weight loss, fevers, chills, sweats, malaise, anorexia EYES: visual blurring, double vision, eye pain ENT: hearing loss, tinnitus, vertigo, epistaxis, bleeding gums RESP: shortness of breath, dyspnea on exertion, cough, pleuritic chest pain, wheezing CV: palpitations, syncope, chest pain, edema, orthopnea, PND GI: dysphagia, nausea, vomiting, abdominal pain (menstrual cramps), constipation, diarrhea : incontinence, dysuria, frequency, hematuria, kidney stone MSK: joint stiffness, swelling, R shoulder pain NEURO: headaches, syncope, seizures, gait problems, tremor, balance, memory SKIN: rash, itching, bruising, lumps or bumps PSYCH: depressed mood, anxiety, suicidal or homicidal ideation ENDO: cold or heat intolerance, polyphagia, polydipsia, polyuria HEME: anemia, bleeding disorder, abnormal bruising, blood clots Past Medical History: Diagnosis Date Essential (primary) hypertension Heart failure (HCC) Type 2 diabetes mellitus without complications (HCC) Past Surgical History: Procedure Laterality Date LEG AMPUTATION ABOVE KNEE Left 12/05/2022 Left; [...] 4-5 months after starting Vaping Use Vaping Use: Never used Substance and Sexual Activity Alcohol use: Not [...] No Stress: No Stress Concern Present (07/26/2024) [employer] - Occupational Stress Questionnaire [...] FOUR TIMES DAILY BEFORE TESTING 100 Each PRN amLODIPine (Norvasc) 10 MG tablet Take 1 (one) tablet by mouth once daily bisacodyl (Dulcolax) 10 MG suppository Insert 1 (one) suppository into the rectum once daily as needed for Constipation blood glucose (OneTouch Verio) test strip USE ONE STRIP TO TEST BLOOD SUGAR FOUR TIMES DAILY 100 strip PRN Blood Glucose Monitoring Suppl (Get Real HealthTouch Verio Reflect) w/Device KIT Use 1 kit [...] Friday, Friday & Friday 0 gabapentin (Neurontin) 100 MG capsule Take 1 (one) capsule by mouth 3 times daily insulin lispro (HumaLOG;ADMelog) 100 UNIT/ML pen Inject 0 (zero) Units to 6 (six) Units subcutaneously 3 times daily with meals (Patient not taking: Reported on 07/26/2024) Lancets (ActivIdentityTOUCH DELICA PLUS 33G EXTRA FINE LANCET) USE ONE LANCET TO PRICK FINGER FOUR TIMES DAILY FOR BLOOD GLUCOSE TESTING 100 Each PRN lisinopril (Prinivil; Zestril) 20 MG tablet Take 1 (one) tablet by mouth once daily melatonin 3 MG tablet Take 1 (one) tablet by mouth nightly as needed for Insomnia nystatin (Mycostatin) 925380 UNIT/GM powder Apply to affected area 3 times daily oxyCODONE, immediate release, (Roxicodone) 10 MG tablet Take 1 (one) tablet by mouth every 4 hours as needed polyethylene glycol 3350 (Miralax) 17 g packet Take 17 (seventeen) g by mouth once daily (Patient not taking: Reported on 05/23/2024) renal vitamin (Dialyvite) tablet Take 1 (one) tablet by mouth once daily senna (Senokot) 8.6 MG tablet Take 1 (one) tablet by mouth once daily sevelamer carbonate (Renvela) 800 MG Take 1 (one) tablet by mouth 3 times daily with meals Hospital Medications: 0.9% NaCl 3 mL Intracatheter q8h azithromycin (Zithromax) IV 500 mg Intravenous q24h carvedilol 12.5 mg Oral BID WC cefepime 1 g Intravenous q24h [START ON 07/27/2024] epoetin 5,000 Units Intravenous DIALYSIS TUE, BLUE, & SAT ferrous sulfate 325 mg Oral QDAY WITH BREAKFAST furosemide 40 mg Oral MON, WED AND FRI gabapentin 300 mg Oral MON, WED AND FRI heparin 5,000 Units Subcutaneous q8h lisinopril 20 mg Oral QDAY renal vitamin 1 tablet Oral QDAY sevelamer carbonate 800 mg Oral TID WC vancomycin (VANCOCIN) IV dose per pharmacy Does not apply DIRECTED Physical Exam: Vitals: 07/26/24 1101 07/26/24 1203 07/26/24 1515 07/26/24 1746 BP: 109/61 124/65 Pulse: 82 82 Resp: 20 20 Temp: 99.7 ??F (37.6 ??C) 99.1 ??F (37.3 ??C) SpO2: 97% 92% 92% 92% Weight: Height: Intake/Output Summary (Last 24 hours) at 07/26/2024 1831 Last data filed at 07/26/2024 1819 Gross per 24 hour Intake 450.43 ml Output -- Net 450.43 ml General: Laying comfortably in bed, no acute distress HEENT: Head NC/AT, EOMI, no scleral icterus, moist oral mucosa without erythema or exudates, hearing at baseline Respiratory: Lungs CTA bilaterally, breathing non-labored, symmetrical chest wall expansion Cardiovascular: RRR; no murmurs, rubs, or gallops; Normal S1 and S2; No JVD Gastrointestinal: Soft, non-tender, non-distended abdomen; bowel sounds present in all quadrants Extremities: No edema Musculoskeletal: L BKA Skin: dry erosive skin on RLE Neurologic: AxO x4, no focal neurologic deficits Psychiatric: Calm, cooperative, appropriate mood and affect, normal judgement Dialysis access: R-IJ Permcath placed 02/2024 LABS: Recent Labs Component Name 07/26/24 0850 07/25/24 2316 06/03/24 0009 NA 133* 134* 138 POTASSIUM 5.3* 4.7* 5.7* CL 108* 107 102 CO2 14* 18* 28 BUN 38* 36* 38* CREATININE 8.40* 7.46* 5.40* Recent Labs Component Name 07/26/24 0850 07/25/24 2316 06/03/24 0009 CALCIUM 8.1* 8.3* 9.3 PHOS 7.4* 6.5* 4.5 Recent Labs Component Name 02/25/24 0110 PTHINTACT 93.0* 25-OH Vitamin D = Recent Labs Component Name 05/25/24 0643 02/23/24 0737 04/27/23 0730 HGBA1C 6.2* 6.5* 6.7* EAG 131 140 146 Recent Labs Component Name 07/26/24 0850 07/25/24 2316 06/03/24 0009 WBC 11.9* 13.0* 8.5 HGB 9.7* 9.5* 10.3* Recent Labs Component Name 06/02/24 0552 02/25/24 0110 IRON 42 23* TIBC 208* 149* FERRITIN 484* 833* IMAGING: XR Shoulder Right 2Vw or More Result Date: 07/26/2024 IMPRESSION: Osseous erosions of the humeral head and scapula, 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 Findings are further characterized outside hospital CT from 07/25/2024 ([facility] No acute fracture or dislocation. Partially imaged airspace opacity in the setting of the right lung. Recommend attention to dedicated chest radiograph. > Interpreting Provider: Matt Maguire MD on 07/26/2024 4:28 PM ASSESSMENT #ESRD on maintenance hemodialysis TTS: -BUN 38 -K 5.3H no EKG -bicarb 14 low not on PO bicarb supplements at home -last iHD session sat 07/24 at local iHD no complications -access RIJ perm cath (last exchanged 02/2024 2/2 bacteremia) -started iHD approx 1 year ago #Chronic kidney disease-mineral and bone disorder (CKD-MBD): -Calcium 8.1 -alb 1.8 correct aly wnl -phos 7.4 H -at home sevelamer on med list but reports not taking #Anemia of chronic kidney disease on dialysis: -baseline hgb 9.7 -last iron studies: ferritin 484H, iron 42, T sat 20wnl -takes ferrous sulfate at home 325mg daily #Hypertension:: -at home takes lasix 40mg MWD, lisinopril 20mg daily, coreg 12.5mg BID #T2DM: -on insulin at home, last A1c 6.2 (05/2024) imrpved from 11.7 in 08/2022 #R glenohumeral joint sepsis: -nuc cell [id number] x 97% neutrophils, septic joint, orthopedic surgery following -on IV abc (vanc cefepime azithro) #PNA #MSSA bacteremia : on Vanc cefepime and azithromycin to cover atypicals -sputum cx light GPC, heavy PMNs -Bcx resulted 07/26/24 at ~16:00 showing MSSA RECOMMENDATIONS -Bcx resulted + MSSA, will dialyze one time tomorrow and then remove perm catheter will need two sets of negative bcx before perm catheter can be replaced -will call IR nephro fellow to remove perm cath tomorrow after iHD completed -will need TTE to r/p endocarditis -restart home sevelamer 800mg TID -if K rises greater than 5.0 after perm cath removal please start lokelma -Check ferrritin and iron studies -check PTH and vit D -restart home antihypertensives as tolerated in setting of sepsis would be cautious, continue lasixafter iHD session tomorrow as patient will remain w/o dialysis until 2 neg cx makes urine and will use diuretics to maintain euvolemia Patient will be seen and discussed with attending physician, Dr Lopez . Nicolás Truong D.O Nephrology Fellow Associated attestation - Aneta Lopez MD - 07/26/2024 8:53 PM CDT I have seen and examined the patient with house-staff on rounds. I agree with the house-staff note with the additions/modificiations listed below. ESRD 2/2 DM2 on HD TTS and other co morbidities as noted in house staff note p/w right shoulder pain,imaging concerning for OM in the setting of known pyogenic arthritis. Nephrology consulted for HD needs On exam NAD, no edema, left AKA, clear chest, NT ND Abd HD tomorrow first shift am If K >6 can dialyze o/n RIJ TDC to be removed after HD due to bacteremia Bcx +ve for MRSA Recommend YISEL Lopez MD * Rob Toscano MD - 07/26/2024 11:57 AM CDTAssociated Order(s): IP CONSULT TO [facility] Orthopedic Trauma Surgery Consultation Note Leeroy Canales, 33 year old, female : 1990 CSN: [id number] Primary Care Physician: CHERISE MARCELO PA-C Chief Complaint No chief complaint on file. Admission Date/Time: 07/25/2024 8:15 PM Today's Date/Time: 07/26/2024 11:57 AM Time at Bedside: 1145am HPI Consulting Service: Medicine U Orthopedic Trauma Surgery consulted for evaluation/management of: Right shoulder pain, concern for right shoulder septic arthritis Leeroy Canales is a 33 year old female who presented to [facility] on 07/25/2024 for right shoulder pain. Patient states she started to develop pain in her right shoulder 3 days ago. She reports on and off feelings of feeling febrile. She states her pain is isolated to her shoulder and gets worse with movement and improved with rest. This pain does not radiate. She states her pain has remained stable over the last 3 days. Patient reports not being able to move her shoulder for the last 2 days. Patientdenies numbness/paresthesias. Patient is currently afebrile, has a white blood cell count of 11.9 K, and ESR of 120, and CRP of 28.3, blood cultures are currently pending. Patient reports receiving dialysis Friday. - Other injuries include: None - ABx/Tetanus booster: Cefepime, vancomycin - PMH: blindness, T2DM, HTN, chronic HFpEF, chronic right heel ulcer/osteomyelitis(tx only with IV abx) , prior left BKA, ESRD on HD (//Fri) and possible sickle cell disease. Left AKA - PSH: denies PMHx Past Medical History: Diagnosis Date Essential (primary) hypertension Heart failure (HCC) Type 2 diabetes mellitus without complications (HCC) PSHx Past Surgical History: Procedure Laterality Date LEG AMPUTATION ABOVE KNEE Left 12/05/2022 Left; [...] NaCl injection 1-10 mL acetaminophen (Tylenol) tablet 650 mg azithromycin (Zithromax) 500 mg in 0.9% NaCl IV 250 mL IVPB carvedilol (Coreg) tablet 12.5 mg cefepime (Maxipime) 1,000 mg in 0.9% NaCl IV 50 mL IVPB dextrose 10 % IV bolus Or dextrose 10 % IV bolus Or glucagon (Glucagen) injection 1 mg ferrous sulfate tablet 325 mg furosemide (Lasix) tablet 40 mg gabapentin (Neurontin) capsule 300 mg glucose (Diabetic Use) oral gel heparin injection 5,000 Units HYDROmorphone (Dilaudid) injection 0.4 mg lisinopril (Prinivil; Zestril) tablet 20 mg oxyCODONE (immediate release) (Roxicodone) tablet 5 mg renal vitamin (Dialyvite) tablet 1 tablet sevelamer carbonate (Renvela) tablet 800 mg vancomycin (Vancocin) IV dose per pharmacy Review of Systems A 12 point review of systems was performed and was negative except for: what was mentioned in the HPI Physical Exam Blood pressure 107/62, pulse 86, temperature 99 ??F (37.2 ??C), temperature source Oral, resp. rate20, height 1.702 m (5' 7 ), weight 114.2 kg (251 lb 11.2 oz), last menstrual period 05/11/2024, SpO2 99%, not currently . Lab results smartLinks are not currently available Lab results smartLinks are not currently available General: Awake, cooperative, in no acute distress. CV: Regular rate Pulm: No audible wheezing, no use of accessory muscles Abd: soft, nontender, nondistended Musculoskeletal: Right upper extremity: -Appearance: skin intact, compartments soft/compressible -Tenderness: nontender to palpation of arm, and hand but tender to palpation of the shoulder -ROM: nontender to passive range of motion of elbow, wrist, fingers but tender to passive range of motion of the shoulder -Motor: Able to ABduct index and small fingers, able to Flex thumb at IP joint, able to hold thumb extended, able to flex/extend the elbow, unable to ABduct shoulder due to pain -Sensation: intact to light touch Axillary/Median/Ulnar/Radial distributions, patient endorses normal sensation in the hand -Vascular: palpable radial pulse with fingers warm and well perfused Left upper extremity: -Appearance: skin intact, compartments soft/compressible -Tenderness: nontender to palpation of shoulder, arm, and hand -ROM: nontender to passive range of motion of shoulder, elbow, wrist, fingers. No crepitation -Motor: Able to ABduct index and small fingers, able to Flex thumb at IP joint, able to hold thumb extended, able to flex/extend the elbow, able to ABduct shoulder -Sensation: intact to light touch Axillary/Median/Ulnar/Radial distributions, patient endorses normal sensation in the hand -Vascular: palpable radial pulse with fingers warm and well perfused Right lower extremity: -Appearance: skin intact, compartments soft/compressible -Tenderness: nontender to palpation of hip, leg, and foot -ROM: nontender to passive range of motion of hip, knee, ankle, foot. Negative log roll. Negative axial load. No crepitation -Motor: Able to plantarflex ankle, able to dorsiflex ankle, able to plantarflex great toe, able to dorsiflex great toe -Sensation: intact to light touch in DP/SP/Sural/Saphenous/Tibial nerve distributions, patient endorses normal sensation in the foot -Vascular: palpable DP/ PT pulse with toes warm and well perfused Left lower extremity: -Appearance: skin intact, compartments soft/compressible. Prior amputation noted. -Tenderness: nontender to palpation of hip and thigh -ROM: nontender to passive range of motion of hip -Motor: Able to grossly move left hip and thigh -Sensation: Sensation is intact over the entire thigh -Vascular: Left thigh is warm and well perfused Imaging -07/26/2024 XR: My impression includes no obvious fracture. Please see radiology report for formal impression Procedure Note - See separate note Assessment/Plan: 33 year old female with right shoulder pain, consulted for right shoulder septic arthritis. Weight bearing Status: WBAT RUE Diet: Okay from Ortho perspective Antibiotics: Recommend continued IV antibiotics per primary Anticoagulation Status: Please start as soon as medically able Pain Control PT/OT as able Will follow-up lab results of the right shoulder aspiration Rob Toscano MD 07/26/2024 11:57 AM Follow up Contact Information: Orthopaedic Surgery [facility] Medicine, Level I-Orthopaedic Surgery [address] [place] [address] [phone] Visit our website at [email or web address] for information about our practice and an interactive health encyclopedia. Please visit [email or web address] to access your health record, ask questions, request medication refills, and request appointments for non-urgent needs after you have configured your [employer] account. If you do not currently have access, please contact one of our staff members or call [phone]. For after hour emergencies, please call and press 0 for the almond blancher operator in order to page the orthopedic resident director institution. Associated attestation - Tao Chapman MD - 08/02/2024 10:30 AM CDT I have reviewed the history and pertinent physical findings on clinical exam of the patient. I agree with the residents assessment. Will await results of the aspiration. To follow * Aminah Lorenzo RD/RAFAEL - 07/26/2024 10:54 AM CDTAssociated Order(s): IP CONSULT TO NUTRITIONAL SERV Clinical Nutrition Assessment Brief Synopsis: Patient is at Nutrition Risk; Specific criteria can be found in assessment below Nutrition Plan: Current diet order: Renal Standard Current supplement order: Start Nepro BID Recommendations to Physician: Recommend Lokelma & phos binders if renal lytes remain elevated Comments: RD consulted for MST. Pt on renal diet, no PO intake documentation. Last BM WDL. Labs: A1c 6.2, renal labs elevated, k+ 5.3, phos 7.4 --pt on HD. RD educated on nutrition for wound healing.Pt reports UBW 130lbs, good appetite, & declines GI symptoms. Pt agreeable to Nepro, requests BID, but dislikes Nathaniel. RD to follow. Assessment: Med/Surg History and Clinical Diagnoses: 33 year old y/o female with PMH of T2DM, ESRD on HD TTS, HTN, HLD, hx of RUE DVT, anemia, PVD, blindness, s/p L AKA, HFpEF, prior hx of infectious arthritis presenting from [facility] for 3 day history of right shoulder pain. Patient states that she felt right shoulder pain upon waking up one morning and it has progressed to become a 10/10, deep throbbing pain that she also feels in her upper arm. Pain is more severe on movement. Denies any traumato the area. Also reports that for about two weeks, she has been experiencing cold sweats and fevers. Of note, patient had admission from 05/23-06/03 for infectious arthritis of L shoulder; pt states this pain feels exactly the same as her prior infection but in the opposite shoulder. Height: 170.2 cm (5' 7 ) Weight: 114.2 kg (251 lb 11.2 oz) BMI: Body mass index is 39.42 kg/m??. BMI Range: Morbidly Obese Class 3 IBW/lb (Calculated) Female: 135, Recent Weights/Methods 06/10/2023 0845 02/26/2024 1501 05/23/2024 2202 05/24/2024 0501 05/24/2024 1400 05/29/2024 0857 07/25/2024 2242 07/26/2024 0414 Weight: 129.7 kg (286 lb) 98.9 kg (218 lb) 93.4 kg (206 lb) -- 93.4 kg (205 lb 14.6 oz) -- 114.2 kg(251 lb 11.2 oz) 114.2 kg (251 lb 11.2 oz) Weight Method : -- -- Stated Other (Comment) -- -- -- Bed scale Wt Comments: Reviewed & monitoring. Wt appears to be trending up if last reading accurate Diet order accuracy Current diet order: Renal Standard Current supplement order: Start Nepro BID Nutrition recommendation: agree with current nutrition order P.O.Intake for the past 48 hrs: No data recorded Supplement(s) Consumed- Last 48 hours None Food Allergies: No known food allergies GI Concerns: None Chewing/Swallowing: None Pain affecting intake: No Estimated Needs: KCAL: 7470-1444 (30-35kcal/kg) Protein (g): 71-82 (1.3-1.5g/kg) Fluid (ml): 1 ml/kcal Needs based on: Kcal/kg- (Comment) (55kg adjsuted IBW) Recommended Access Route: PO Laboratory values: Recent Labs Component Name 07/26/24 0850 07/25/24 2316 06/03/24 0009 05/25/24 0643 05/24/24 0625 02/23/24 0737 02/22/24 2214 06/10/23 0939 BUN 38* 36* 38* - 33* - 21 8 CREATININE 8.40* 7.46* 5.40* - 3.64* - 4.88* 1.96* NA 133* 134* 138 - 139 - 136 143 POTASSIUM 5.3* 4.7* 5.7* - 4.2 - 4.1 4.1 CL 108* 107 102 - 104 - 100 110* CO2 14* 18* 28 - 26 - 26 25 GLUCOSE 161* 138* 195* - 240* - 261* 79 CALCIUM 8.1* 8.3* 9.3 - 8.5 - 8.8 8.3* PROT - - - - 7.2 - 8.1 5.8* ALB 1.8* 1.9* 2.1* - 1.9* - 1.5* 1.5* TBILI - - - - 0.1* - 0.2 0.2 ALKPHOS - - - - 170* - 221* 139 ALT - - - - 25 - 11 8 AST - - - - 14 - 7 12 ANIONGAP 11 9 8 - 9 - 10 12 BCR 5* 5* 7 - 9 - 4* 4* OSMOLALITY 289 289 300* - 303* - 294 293 AGRATIO - - - - 0.4* - 0.2* 0.3* EGFR 6* 7* 10* - 16* - 12* 35* - = values in this interval not displayed. Medications: Current Facility-Administered Medications Medication 0.9% NaCl injection 3 mL And 0.9% NaCl injection 1-10 mL acetaminophen (Tylenol) tablet 650 mg azithromycin (Zithromax) 500 mg in 0.9% NaCl IV 250 mL IVPB carvedilol (Coreg) tablet 12.5 mg cefepime (Maxipime) 1,000 mg in 0.9% NaCl IV 50 mL IVPB dextrose 10 % IV bolus Or dextrose 10 % IV bolus Or glucagon (Glucagen) injection 1 mg ferrous sulfate tablet 325 mg furosemide (Lasix) tablet 40 mg gabapentin (Neurontin) capsule 300 mg glucose (Diabetic Use) oral gel heparin injection 5,000 Units HYDROmorphone (Dilaudid) injection 0.4 mg lisinopril (Prinivil; Zestril) tablet 20 mg oxyCODONE (immediate release) (Roxicodone) tablet 5 mg renal vitamin (Dialyvite) tablet 1 tablet sevelamer carbonate (Renvela) tablet 800 mg vancomycin (Vancocin) IV dose per pharmacy Skin/Wound: foot, side, & leg wound Education needed: Wound Healing Education Provided: Yes Expected level of compliance: Needs reinforcement Nutrition Care Process (1) Nutrition Diagnostic Statement: Increased nutrient needs related to:: increased demands for wound healing;renal dysfunction as evidenced by:: delayed wound healing Nutrition Diagnostic Statement Progress: New diagnostic statement established Nutrition Intervention: Meals and snacks:;Medical Food Supplements: Monitoring: PO intake, labs, weight, BM Evaluation: Nutrition Goal: Total intake will meet estimated nutrient needs Nutrition Goal Timeframe: Throughout stay Nutrition Goal Progress: New goal established Ascom #: [id number] documented in this encounter OR Notes * Brief Op Note - Abel Alvarenga MD - 07/30/2024 2:07 PM CDT [facility] BRIEF POST PROCEDURE AND SEDATION NOTE Leeroy Canales is a 33 year old female born on 1990 Pre-Op Diagnosis: Bacteremia Post-Op Diagnosis: no vegetation Attending: Ruth Wilcox MD Grinder Machine Knife Setter(s): Abel Alvarenga MD Type of anesthesia: moderate sedation 100mcg IV fentanyl and 4mg IV midazolam, was used for sedation. Monitoring: Monitoring consisted of: heart rate, night monitor, continuous pulse oximetry, continuous capnometry, frequent blood pressure checks, level of consciousness, IV access, constant attendance by RN until patient recovered and constant attendance until patient stable. Response: Vital signs stable, airway patent and O2 saturations greater than 92%. Patient Status Post Procedure: Hemodynamically and neurologically stable. Complications: none Abel Alvarenga MD 07/30/2024 * Brief Op Note - Charlie Sutherland MD - 07/27/2024 8:21 AM CDT Brief Op Note Procedure: RIGHT SHOULDER INCISION AND DEBRIDEMENT Patient Name: Leeroy Canales Date of Service: 07/27/2024 Pre-Op Diagnosis: Pyogenic arthritis of right shoulder region, due to unspecified organism (HCC) [M00.9] Post-Op Diagnosis: Same Surgeon(s) and Role: * Tao Chapman MD - Primary * Charlie Sutherland MD - Resident - Assisting Grinder Machine Knife Setter(s): As above Anesthesia Type: general ETT Complications: none Findings: Purulent material and glenohumeral joint cultures taken thorough irrigation debridement EBL: 50 mL Urine Output : Per anesthesia record IV Fluid Intake: Per anesthesia record Drains: Drain 1 Round Accordian Anterior;Right Shoulder (Active) Specimen(s): * No specimens in log * Implant(s): * No implants in log * Charlie Sutherland MD * Operative - Tao Chapman MD - 07/27/2024 8:21 AM CDT Operative Report NAME: LEEROY CANALES : 1990 AGE: 33 PROC DATE: 07/27/2024 SEX: F SURGEON: Tao Chapman MD PREOPERATIVE DIAGNOSES: Septic right shoulder. POSTOPERATIVE DIAGNOSES: Septic right shoulder. OPERATIONS AND PROCEDURES: 1. Arthrotomy, right shoulder. 2. Drainage of septic shoulder with irrigation and debridement. 3. Synovectomy right shoulder. ATTENDING SURGEON: Tao Chapman MD AIRCRAFT ARMORER: Charlie Sutherland MD OPERATIVE INDICATIONS: This woman has multiple medical comorbidities and has had episodes of pain and irritability of the right shoulder for several months and has been aspirated two separate times by the orthopedic trauma service. She presented to the hospital yesterday with increasing shoulder pain and inability to move and swelling and fullness was noted. She underwent arthrocentesis where significant number of cells greater than 200,000 cells count was noted with gram positive cocci on Gramstain. This represented septic shoulder. CT scan documented chronic changes in the humeral head, which indicates the chronicity of some kind, thus we will perform irrigation and excisional debridement at this juncture once the patient is cleared for surgery. Informed consent and appropriate surgical site verification was confirmed and we will proceed. DESCRIPTION OF PROCEDURE: Following application of general endotracheal anesthesia, the patient wastransferred from her hospital bed to radiolucent operating table where she was placed in a supine position and then a large shoulder bump elevated her right shoulder approximately 25 degrees with herhead on a head rest. The entire right upper extremity was prepped and draped in routine fashion with the arm draped freeto move her arm as we debrided the shoulder joint. A deltopectoral incision was first made beginning inferior to the coracoid process carried along the deltopectoral interval to the base of the femoral head. Incision was carried down through skin andsubcutaneous tissue, identifying the very large cephalic vein, which was left in the groove as there were multiple branches of the large cephalic vein and our desire was to avoid significant operative morbidity and therefore, the vein was left in the deltopectoral interval and the deltoid muscle split just lateral to this region reflecting the deltoid laterally and identifying the subscapularis and capsular tissues. Small retractor was placed underneath the deltoid and the insertion beneath the lateral insertion just at the level of the biceps tendon, was incised such that the pectoralis minor could be reflectedmedially exposing the capsule. The capsule was identified and incised lateral to the biceps tendon entering and carrying the incision proximally into the rotator cuff interval. This allowed this egress into the joint and then the capsule was elevated superiorly, medially and the biceps tendon was identified and carefully extracted from the groove. There was dense scarring as the subdeltoid area was densely scarred, however, once we entered into the subdeltoid region, copious purulence was noted, 85 to 90 mL of milky purulent substances was evacuated from the joint. Further reflecting the subscapularis medially, the glenoid could be identified and additional pockets ofwalled-off purulence was identified from the posterior aspect of the humeral head as well as the infraglenoid pouch was also entered with finger dissection evacuating significant pockets of purulent m aterial. The biceps tendon sheath was incised and upon entering the sheath purulence was found. Evacuation of purulence up and down the bicipital tendon was evacuated as well. Hypertrophic synovium of the tendon sheath and the anterior capsular tissues was resected with the bovie and scalpel down to capsular tissues. The capsular tissues were in fact grossly edematous and swollen with obvious signs of involvement but were bleeding and appeared viable.... so not gross soft tissue debridement was performed. But allpockets of involvement were evacuated , saucerized and debrided Finger dissection over the humeral head palpating posteriorly, large cystic areas could be identified. A small curette to curettage some of the bone down to bleeding bone was carried out. The joint was then thoroughly inspected and following evacuation of the gross purulence, the wound was lavaged with 6 liters high flow, low pressure normal saline irrigation until clear. It should be noted that multiple cultures were sent for culture and sensitivity, aerobic and anaerobic as well as fungal cultures were sent. Following thorough irrigation and excisional debridement, an 1/8th-inch Hemovac drain was placed deep to the proximal rotator interval and the subscapularis reapproximated to its insertion using interrupted 0 Monocryl suture closing the rotator interval being careful to leave the drains free. Once the subscapularis and capsular tissues were closed as a layer, the deltoid split fascia was closed using interrupted 2-0 Monocryl and 2-0 Monocryl closed subcutaneous tissue and 3-0 Monocryl closed skin in an interrupted AO stitch fashion. At this point, sterile compressive dressing was applied using Xeroform gauze, sterile 4x4's, and Tegaderm adhesive dressings and the patient was then transferred back to her hospital bed where she was placed in a sling, awakened and returned to recovery room with neurovascular and vital signs stable. Estimated blood loss 125 mL. Samples as noted was sent forculture and sensitivity. We will await culture results for appropriate antibiotic coverage. Tao Chapman MD JTW/kir .[id number] Doc ID: [id number] Voice Job ID: [id number] documented in this encounter Plan of Treatment Upcoming Encounters Date Type Department Care Team (Late st Contact Info) Description 11/22/2024 1:30 PM [facility] Office Visit [facility] - Infectious Disease [address] [place] [address], [place] [address] Kash Ha MD [address] [place] [id number] Scheduled Orders Name Type Priority Associated Diagnoses Order Schedule EKG 12-LEAD ECG Routine Sepsis, due to unspecified organism, unspecified whether acute organ dysfunction present (HCC) ONCE for 1 Occurrences starting 07/27/2024 until 07/27/2024 High Flow Nasal Cannula Therapy Respiratory Care Routine ONCE for 1 Occurrences starting 08/05/2024 until 08/05/2024 CT Chest W Contrast Imaging Routine Pyogenic arthritis of right shoulder region, due to unspecified organism (HCC) Expected: 08/23/2024, Expires: 08/08/2025 CBC WITH DIFFERENTIAL Lab Routine Pyogenic arthritis of right shoulder region, due to unspecified organism (HCC) Once per Week for 4 Occurrences starting 08/08/2024 until 09/08/2025 COMPREHENSIVE METABOLIC PANEL Lab Routine Pyogenic arthritis of right shoulder region, due to unspecified organism (HCC) Once per Week for 4 Occurrences starting 08/08/2024 until 09/08/2025 C-REACTIVE PROTEIN Lab Routine Pyogenic arthritis of right shoulder region, due to unspecified organism (HCC) Once per Week for 4 Occurrences starting 08/08/2024 until 09/08/2025 VANCOMYCIN LEVEL TROUGH Lab Routine Pyogenic arthritis of right shoulder region, due to unspecified organism (HCC) Once per Week for 4 Occurrences starting 08/08/2024 until 09/08/2025 ERYTHROCYTE SEDIMENTATION RATE Lab Routine Pyogenic arthritis of right shoulder region, due to unspecified organism (HCC) Once per Week for 4 Occurrences starting 08/08/2024 until 09/08/2025 Scheduled Referrals Name Type Priority Associated Diagnoses Orde r Schedule Ref to Orthopedics - [facility] Outpatient Referral Routine Pyogenic arthritis of right shoulder region, due to unspecified organism (HCC) Expected: 08/23/2024, Expires: 08/09/2025 AMB REFERRAL TO [facility] Outpatient Referral Routine MRSA bacteremia ESRD (end stage renal disease) (HCC) Osteomyelitis of right foot, unspecified type (HCC) Ordered: 08/09/2024 documented as of this encounter Procedures Procedure Name Priority Date/Time Associated Diagnosis Comments GLUCOSE - POINT OF CARE Routine 08/09/2024 11:30 AM CDT RENAL FUNCTION PANEL STAT 08/09/2024 9:45 AM CDT GLUCOSE - POINT OF CARE Routine 08/09/2024 7:44 AM CDT GLUCOSE - POINT OF CARE Routine 08/08/2024 8:12 PM CDT GLUCOSE - POINT OF CARE Routine 08/08/2024 4:19 PM CDT GLUCOSE - POINT OF CARE Routine 08/08/2024 11:21 AM CDT GLUCOSE - POINT OF CARE Routine 08/08/2024 7:29 AM CDT GLUCOSE - POINT OF CARE Routine 08/07/2024 9:51 PM CDT GLUCOSE - POINT OF CARE Routine 08/07/2024 11:16 AM CDT GLUCOSE - POINT OF CARE Routine 08/07/2024 7:39 AM CDT PTT SLH Routine 08/07/2024 5:47 AM CDT CBC W AUTO DIFFERENTIAL AM Draw 08/07/2024 5:47 AM CDT COMPREHENSIVE METABOLIC PANEL AM Draw 08/07/2024 5:47 AM CDT PHOSPHORUS BLOOD Routine 08/07/2024 5:47 AM CDT MAGNESIUM BLOOD Routine 08/07/2024 5:47 AM CDT GLUCOSE - POINT OF CARE Routine 08/06/2024 8:34 PM CDT HEMODIALYSIS INPATIENT Routine 6:49 PM CDT GLUCOSE - POINT OF CARE Routine 08/06/2024 4:21 PM CDT IR CENTRAL LINE INSERT TUNNEL Routine 08/06/2024 12:28 PM CDT MRSA bacteremia ESRD (end stage renal disease) (HCC) GLUCOSE - POINT OF CARE Routine 08/06/2024 7:25 AM CDT PTT SLH Routine 08/06/2024 4:02 AM CDT CBC W/O DIFFERENTIAL AM Draw 08/06/2024 4:02 AM CDT RENAL FUNCTION PANEL AM Draw 08/06/2024 4:02 AM CDT MAGNESIUM BLOOD Routine 08/06/2024 4:02 AM CDT XR CHEST 1VW PORTABLE Routine 08/05/2024 8:57 PM CDT Hypoxia BASIC METABOLIC PANEL (CALCIUM TOTAL) Routine 08/05/2024 8:32 PM CDT LACTIC ACID BLOOD Routine 08/05/2024 8:3 2 PM CDT BLOOD GASES ART + COOX PANEL Routine 08/05/2024 8:32 PM CDT GLUCOSE - POINT OF CARE Routine 08/05/2024 8:19 PM CDT GLUCOSE - POINT OF CARE Routine 08/05/2024 11:35 AM CDT GLUCOSE - POINT OF CARE Routine 08/05/2024 8:19 AM CDT PTT SLH Routine 08/05/2024 4:31 AM CDT CBC W/O DIFFERENTIAL AM Draw 08/05/2024 4:31 AM CDT RENAL FUNCTION PANEL AM Draw 08/05/2024 4:31 AM CDT MAGNESIUM BLOOD Routine 08/05/2024 4:31 AM CDT VANCOMYCIN LEVEL RANDOM Timed 08/05/2024 4:31 AM CDT PTT SLH Timed 08/04/2024 5:51 PM CDT GLUCOSE - POINT OF CARE Routine 08/04/2024 4:13 PM CDT HEMODIALYSIS INPATIENT Routine 1:19 PM CDT CULTURE BLOOD Timed 08/04/2024 11:57 AM CDT CULTURE BLOOD Timed 08/04/2024 11:45 AM CDT GLUCOSE - POINT OF CARE Routine 08/04/2024 11:39 AM CDT PTT SLH Timed 08/04/2024 11:28 AM CDT GLUCOSE - POINT OF CARE Routine 08/04/2024 7:32 AM CDT PTT [facility] Timed 08/04/2024 3:55 AM CDT PTT [facility] Routine 08/04/2024 2:54 AM CDT PT-INR SLH Routine 08/04/2024 2:54 AM CDT RENAL FUNCTION PANEL Routine 08/04/2024 2:54 AM CDT MAGNESIUM BLOOD Routine 08/04/2024 2:54 AM CDT GLUCOSE - POINT OF CARE Routine 08/03/2024 9:23 PM CDT PTT SL[facility] Timed 08/03/2024 8:35 PM CDT GLUCOSE - POINT OF CARE Routine 08/03/2024 5:47 PM CDT PTT [facility] Timed 08/03/2024 11:07 AM CDT GLUCOSE - POINT OF CARE Routine 08/03/2024 7:51 AM CDT PTT [facility] Timed 08/03/2024 5:38 AM CDT PT-INR SLH Routine 08/03/2024 5:38 AM CDT RENAL FUNCTION PANEL Routine 08/03/2024 5:38 AM CDT MAGNESIUM BLOOD Routine 08/03/2024 5:38 AM CDT PTT [facility] STAT 08/03/2024 2:14 AM CDT GLUCOSE - POINT OF CARE Routine 08/02/2024 8:50 PM CDT PTT SLH Timed 08/02/2024 5:53 PM CDT HEMODIALYSIS INPATIENT Routine 5:23 PM CDT GLUCOSE - POINT OF CARE Routine 08/02/2024 12:28 PM CDT CULTURE BLOOD Timed 08/02/2024 9:02 AM CDT GLUCOSE - POINT OF CARE Routine 08/02/2024 8:34 AM CDT PTT SL[facility] Routine 08/02/2024 8:04 AM CDT PT-INR SLH Routine 08/02/2024 8:04 AM CDT CBC W AUTO DIFFERENTIAL Routine 08/02/2024 8:04 AM CDT RENAL FUNCTION PANEL Routine 08/02/2024 8:04 AM CDT MAGNESIUM BLOOD Routine 08/02/2024 8:04 AM CDT GLUCOSE - POINT OF CARE Routine 08/01/2024 4:42 PM CDT GLUCOSE - POINT OF CARE Routine 08/01/2024 11:50 AM CDT C-REACTIVE PROTEIN Routine 08/01/2024 11 :21 AM CDT ERYTHROCYTE SEDIMENTATION RATE Routine 08/01/2024 11:21 AM CDT GLUCOSE - POINT OF CARE Routine 08/01/2024 8:05 AM CDT PTT [facility] STAT 08/01/2024 6:48 AM CDT CULTURE BLOOD Timed 08/01/2024 1:47 AM CDT CULTURE BLOOD Timed 08/01/2024 1:47 AM CDT PTT SL[facility] Timed 08/01/2024 12:42 AM CDT PT-INR SLH Routine 08/01/2024 12:42 AM CDT CBC W AUTO DIFFERENTIAL Routine 08/01/2024 12:42 AM CDT RENAL FUNCTION PANEL Routine 08/01/2024 12:42 AM CDT MAGNESIUM BLOOD Routine 08/01/2024 12:42 AM CDT PTT SLH Timed 07/31/2024 5:20 PM CDT CULTURE BLOOD Timed 07/31/2024 5:20 PM CDT CBC W AUTO DIFFERENTIAL Routine 07/31/2024 5:20 PM CDT GLUCOSE - POINT OF CARE Routine 07/31/2024 4:53 PM CDT HEMODIALYSIS INPATIENT Routine 12:39 PM CDT GLUCOSE - POINT OF CARE Routine 07/31/2024 11:05 AM CDT GLUCOSE - POINT OF CARE Routine 07/31/2024 8:35 AM CDT PTT SLH STAT 07/31/2024 7:37 AM CDT PT-INR SLH Routine 07/31/2024 7:37 AM CDT CBC W/O DIFFERENTIAL Routine 07/31/2024 5:53 AM CDT RENAL FUNCTION PANEL Routine 07/31/2024 5:53 AM CDT MAGNESIUM BLOOD Routine 07/31/2024 5:53 AM CDT VANCOMYCIN LEVEL RANDOM Timed 07/31/2024 5:53 AM CDT GLUCOSE - POINT OF CARE Routine 07/30/2024 7:52 PM CDT XR CHEST 1VW PORTABLE STAT 07/30/2024 4:42 PM CDT ESRD (end stage renal disease) (HCC) IR CENTRAL LINE INSERT TUNNEL Routine 07/30/2024 3:32 PM CDT MRSA bacteremia ESRD (end stage renal disease) ([facility]) ECHO MATT COMPLETE Routine 07/30/2024 2:0 5 PM CDT Sepsis due to methicillin resistant Staphylococcus aureus (MRSA), unspecified whether acute organ dysfunction present ([facility]) GLUCOSE - POINT OF CARE Routine 07/30/2024 12:38 PM CDT CULTURE BLOOD Timed 07/30/2024 12:13 PM CDT CULTURE BLOOD Timed 07/30/2024 12:03 PM CDT MRI CERVICAL SPINE WWO CONT Routine 07/30/2024 9:22 AM CDT MRSA bacteremia VAS ARTERIAL MULTILEVEL LE STAT 07/30/2024 8:06 AM CDT Chronic heel ulcer, right, with unspecified severity ([facility]) VAS RIGHT VENOUS DUPLEX UE Routine 07/30/2024 8:06 AM CDT Swelling of right upper extremity CBC W/O DIFFERENTIAL Routine 07/30/2024 6:44 AM CDT RENAL FUNCTION PANEL Routine 07/30/2024 6:44 AM CDT MAGNESIUM BLOOD Routine 07/30/2024 6:44 AM CDT GLUCOSE - POINT OF CARE Routine 07/29/2024 5:01 PM CDT CULTURE BLOOD Timed 07/29/2024 4:36 PM CDT CULTURE BLOOD Timed 07/29/2024 11:17 AM CDT GLUCOSE - POINT OF CARE Routine 07/29/2024 11:13 AM CDT GLUCOSE - POINT OF CARE Routine 07/29/2024 8:21 AM CDT CBC W/O DIFFERENTIAL Routine 07/29/2024 6:24 AM CDT RENAL FUNCTION PANEL Routine 07/29/2024 6:24 AM CDT VANCOMYCIN LEVEL RANDOM Routine 07/29/2024 6:24 AM CDT GLUCOSE - POINT OF CARE Routine 07/29/2024 4:39 AM CDT GLUCOSE - POINT OF CARE Routine 07/28/2024 8:58 PM CDT CULTURE BLOOD Timed 07/28/2024 8:48 PM CDT CULTURE BLOOD Timed 07/28/2024 5:53 PM CDT GLUCOSE - POINT OF CARE Routine 07/28/2024 5:25 PM CDT IR CENTRAL LINE REMOVAL Routine 07/28/2024 5:07 PM CDT Sepsis, due to unspecified organism, unspecified whether acute organ dysfunction present (HCC) MRSA bacteremia CT FOOT RIGHT W CONTRAST Routine 07/28/2024 2:20 PM CDT Chronic heel ulcer, right, with unspecified severity (HCC) GLUCOSE - POINT OF CARE Routine 07/28/2024 12:02 PM CDT ECHO COMPLETE W CONTRAST Routine 07/28/2024 8:44 AM CDT Sepsis, due to unspecified organism, unspecified whether acute organ dysfunction present (HCC) GLUCOSE - POINT OF CARE Routine 07/28/2024 8:13 AM CDT CBC W/O DIFFERENTIAL Routine 07/28/2024 7:02 AM CDT RENAL FUNCTION PANEL Routine 07/28/2024 7:02 AM CDT GLUCOSE - POINT OF CARE Routine 07/28/2024 12:[address] CHEST ABDOMEN PELVIS W CONT Routine 07/27/2024 1:41 PM CDT Sepsis, due to unspecified organism, unspecified whether acute organ dysfunction present (HCC) GLUCOSE - POINT OF CARE Routine 07/27/2024 12:00 PM CDT GLUCOSE - POINT OF CARE Routine 07/27/2024 10:41 AM CDT HEMODIALYSIS INPATIENT Routine 9:24 AM CDT CULTURE FUNGUS OTHER+FUNGUS SMEAR Routine 07/27/2024 9:11 AM CDT CULTURE WOUND+GRAM STAIN STAT 07/27/2024 9:11 AM CDT CULTURE ANAEROBE Routine 07/27/2024 9:11 AM CDT OR MATI SUBQ TISSUE 20 SQ CM/< 07/27/2024 7:05 AM CDT Pyogenic arthritis of right shoulder region, due to unspecified organism (HCC) CBC W/O DIFFERENTIAL Routine 07/27/2024 5:01 AM CDT RENAL FUNCTION PANEL Routine 07/27/2024 5:01 AM CDT HCG BETA BLOOD QUANTITATIVE STAT 07/27/2024 5:01 AM CDT CULTURE BLOOD Timed 07/26/2024 11:08 PM CDT CULTURE BLOOD Timed 07/26/2024 10:52 PM CDT GLUCOSE - POINT OF CARE Routine 07/26/2024 7:54 PM CDT GLUCOSE - POINT OF CARE Routine 07/26/2024 5:09 PM CDT TYPE + SCREEN PANEL STAT 07/26/2024 3 :48 PM CDT XR SHOULDER RIGHT 2VW OR MORE STAT 07/26/2024 2:29 PM CDT Pyogenic arthritis of right shoulder region, due to unspecified organism (HCC) Acute pain of right shoulder CRYSTAL INDENTIFICATION SYNOVIAL FLUID STAT 07/26/2024 1:20 PM CDT PATHOLOGY SMEAR BODY FLUID STAT 07/26/2024 1:20 PM CDT DIFFERENTIAL MANUAL FLUID STAT 07/26/2024 1:20 PM CDT CULTURE FLUID+GRAM STAIN STAT 07/26/2024 1:20 PM CDT CULTURE ANAEROBE STAT 07/26/2024 1:20 PM CDT CELL COUNT W DIFFERENTIAL FLUID STAT 07/26/2024 1:20 PM CDT GLUCOSE - POINT OF CARE Routine 07/26/2024 12:23 PM CDT VANCOMYCIN LEVEL RANDOM Routine 07/26/2024 9:23 AM CDT PROCALCITONIN LEVEL AM Draw 07/26/2024 8 :50 AM CDT CBC W/O DIFFERENTIAL Routine 07/26/2024 8:50 AM CDT B-TYPE NATRIURETIC PEPTIDE Routine 07/26/2024 8:50 AM CDT RENAL FUNCTION PANEL Routine 07/26/2024 8:50 AM CDT XR CHEST 1VW PORTABLE STAT 07/25/2024 11:57 PM CDT Pneumonia of both lungs due to infectious organism, unspecified part of lung CULTURE BLOOD STAT 07/25/2024 11:18 PM CDT PTT SLH STAT 07/25/2024 11:16 PM CDT PT-INR H STAT 07/25/2024 11:16 PM CDT BCID PANEL Routine 07/25/2024 11:16 PM CDT C-REACTIVE PROTEIN MONICA 07/25/2024 11 :16 PM CDT CULTURE BLOOD STAT 07/25/2024 11:16 PM CDT ERYTHROCYTE SEDIMENTATION RATE STAT 07/25/2024 11:16 PM CDT CBC W/O DIFFERENTIAL Routine 07/25/2024 11:16 PM CDT RENAL FUNCTION PANEL Routine 07/25/2024 11:16 PM CDT LACTIC ACID BLOOD STAT 07/25/2024 11: 16 PM CDT GLUCOSE - POINT OF CARE Routine 07/25/2024 8:47 PM CDT documented in this encounter Results * (ABNORMAL) GLUCOSE - POINT OF CARE (08/09/2024 11:30 AM CDT) Pathologist [facility] Glucose WB/POC 169(H) 70 - 115 mg/dL 08/09/2024 12:22 PM CDT [facility] Specimen Type Cap Fingerstick 2023 12:22 PM CDT [facility] Blood BLOOD SPECIMEN / Unknown 08/09/2024 11:30 AM CDT 08/09/2024 12:22 PM CDT Harpreet Katz DO LAB - POINT OF CARE ORDERABLES [facility] [address] [place] [address], [place] [phone] * (ABNORMAL) RENAL FUNCTION PANEL (08/09/2024 9:45 AM CDT) Pathologist [facility] BUN 30(H) 7 - 26 mg/dL 08/09/2024 12:22 PM [facility] Creatinine 6.80(H) 0.56 - 0.96 mg/dL 08/09/2024 12:22 PM [facility] Sodium 139 136 - 145 mmol/L 08/09/2024 12:22 PM [facility] Potassium 4.2 3.5 - 4.5 mmol/L 08/09/2024 12:22 PM [facility] Chloride 100 98 - 107 mmol/L 08/09/2024 12:22 PM [facility] CO2 24 22 - 29 mmol/L 08/09/2024 12:22 PM [facility] Glucose 184(H) 70 - 115 mg/dL 08/09/2024 12:22 PM [facility] Albumin 2.1(L) 3.4 - 5.0 g/dL 08/09/2024 12:22 PM [facility] Calcium 8.6 8.4 - 10.2 mg/dL 08/09/2024 12:22 PM [facility] Phosphorus 4.9 2.9 - 5.1 mg/dL 08/09/2024 12:22 PM [facility] Anion Gap 15 6 - 16 08/09/2024 12:22 PM [facility] BUN/Creatinine Ratio 4(L) 7 - 23 08/09/2024 12:22 PM [facility] Osmolality Calculated 299(H) 275 - 295 mOsm/kg 08/09/2024 12:22 PM [facility] eGFR by CKD-EPI 8(L) >=90 mL/min/1.7 3 m2 08/09/2024 12:22 PM [facility] Blood BLOOD SPECIMEN / Unknown Lab Venipuncture / Unknown 08/09/2024 9:45 AM CDT 08/09/2024 11:[address] [facility] Harpreet Katz DO LAB - CHEMISTRY DIVINA OLVERA [facility] [address] [place] [phone], [facility] [phone] * (ABNORMAL) GLUCOSE - POINT OF CARE (08/09/2024 7:44 AM CDT) Glucose WB/POC 146(H) 70 - 115 mg/dL 08/09/2024 8:19 AM CDT [facility] Specimen Type Cap Fingerstick 2023 8:19 AM CDT [facility] Blood BLOOD SPECIMEN / Unknown 08/09/2024 7:44 AM CDT 08/09/2024 8:19 AM CDT [facility] LAB - POINT OF CARE ORDERABLES [facility] [address] [place] [address], [place] [phone] * (ABNORMAL) GLUCOSE - POINT OF CARE (08/08/2024 8:12 PM CDT) Glucose WB/POC 266(H) 70 - 115 mg/dL 08/08/2024 8:40 PM CDT [facility] Specimen Type Cap Fingerstick 2023 8:40 PM CDT [facility] Blood BLOOD SPECIMEN / Unknown 08/08/2024 8:12 PM CDT 08/08/2024 8:39 PM CDT [facility] LAB - POINT OF CARE ORDERABLES [facility] [address] [place] [address], [place] [phone] * (ABNORMAL) GLUCOSE - POINT OF CARE (08/08/2024 4:19 PM CDT) Glucose WB/POC 297(H) 70 - 115 mg/dL 08/08/2024 4:26 PM CDT [facility] Specimen Type Cap Fingerstick 2023 4:26 PM CDT [facility] Blood BLOOD SPECIMEN / Unknown 08/08/2024 4:19 PM CDT 08/08/2024 4:26 PM CDT Harpreet Katz DO LAB - POINT OF CARE ORDERABLES [address] [address], [place] [phone] * (ABNORMAL) GLUCOSE - POINT OF CARE (08/08/2024 11:21 AM CDT) Glucose WB/POC 194(H) 70 - 115 mg/dL 08/08/2024 12:21 PM CDT [facility] Specimen Type Cap Fingerstick 2023 12:21 PM CDT [facility] Blood BLOOD SPECIMEN / Unknown 08/08/2024 11:21 AM CDT 08/08/2024 12:21 PM CDT Harpreet Katz LAB - POINT OF CARE ORDERABLES [address] [address], [place] [phone] * (ABNORMAL) GLUCOSE - POINT OF CARE (08/08/2024 7:29 AM CDT) Glucose WB/POC 214(H) 70 - 115 mg/dL 08/08/2024 12:21 PM CDT [facility] Specimen Type Cap Fingerstick 2023 12:21 PM CDT [facility] Blood BLOOD SPECIMEN / Unknown 08/08/2024 7:29 AM CDT 08/08/2024 12:21 PM CDT Harpreet Sterling LAB - POINT OF CARE ORDERABLES [address] [address], [place] [phone] * (ABNORMAL) GLUCOSE - POINT OF CARE (08/07/2024 9:51 PM CDT) Glucose WB/POC 251(H) 70 - 115 mg/dL 08/07/2024 9:53 PM CDT [facility] Specimen Type Cap Fingerstick 2023 9:53 PM CDT [facility] Blood BLOOD SPECIMEN / Unknown 08/07/2024 9:51 PM CDT 08/07/2024 9:52 PM CDT Rob Cruz MD LAB - POINT OF CARE ORDERABLES [facility] [address] [place] [address], [place] [phone] * (ABNORMAL) GLUCOSE - POINT OF CARE (08/07/2024 11:16 AM CDT) Glucose WB/POC 164(H) 70 - 115 mg/dL 08/07/2024 11:31 AM CDT [facility] Specimen Type Cap Fingerstick 2023 11:31 AM CDT [facility] Blood BLOOD SPECIMEN / Unknown 08/07/2024 11:16 AM CDT 08/07/2024 11:31 AM CDT Rob Cruz MD LAB - POINT OF CARE ORDERABLES Performing Organization Address City/[facility]/ZIP Co de Phone Number [address] [address], [place] [phone] * (ABNORMAL) GLUCOSE - POINT OF CARE (08/07/2024 7:39 AM CDT) Glucose WB/POC 206(H) 70 - 115 mg/dL 08/07/2024 8:20 AM CDT [facility] Specimen Type Cap Fingerstick 2023 8:20 AM CDT [facility] Blood BLOOD SPECIMEN / Unknown 08/07/2024 7:39 AM CDT 08/07/2024 8:20 AM CDT Rob Cruz MD LAB - POINT OF CARE ORDERABLES [address] [address], [place] [phone] * PTT [facility] (08/07/2024 5:47 AM CDT) APTT 35.0 23.0 - 38.4 Seconds 08/07/2024 7:13 AM CDT [facility] Comment:Suggested therapeuti c range for full dose I.V. unfractionated heparin therapy for venous thromboembolism is 71 to 109 seconds. Blood BLOOD SPECIMEN / Unknown Lab Venipuncture / Unknown 08/07/2024 5:47 AM CDT 08/07/2024 6:37 AM CDT Geronimo Burleson MD LAB - COAGULAT ION ORDERABLES Performing Organization Address City/[facility]/ZIP Co de Phone Number [address] [address], [facility] [phone] * (ABNORMAL) PHOSPHORUS BLOOD (08/07/2024 5:47 AM CDT) Phosphorus 5.9(H) 2.9 - 5.1 mg/dL 08/07/2024 7:19 AM CDT [facility] Blood BLOOD SPECIMEN / Unknown Lab Venipuncture / Unknown 08/07/2024 5:47 AM CDT 08/07/2024 6:37 AM CDT Rob Cruz MD LAB - CHEMISTRY DIVINA OLVERA Performing Organization Address [facility]/ZIP Co de Phone Number [address] [address], [place] [phone] * MAGNESIUM BLOOD (08/07/2024 5:47 AM CDT) Magnesium 2.3 1.6 - 2.6 mg/dL 08/07/2024 7:19 AM CDT [facility] Blood BLOOD SPECIMEN / Unknown Lab Venipuncture / Unknown 08/07/2024 5:47 AM CDT 08/07/2024 6:37 AM CDT Rob Cruz MD LAB - CHEMISTRY DIVINA OLVEAR [facility] [address] [place] [address], [facility] [phone] * (ABNORMAL) COMPREHENSIVE METABOLIC PANEL (08/07/2024 5:[address] [facility]) BUN 33(H) 7 - 26 mg/dL 08/07/2024 7:24 AM [facility] Creatinine 6.99(H) 0.56 - 0.96 mg/dL 08/07/2024 7:24 AM [facility] Sodium 138 136 - 145 mmol/L 08/07/2024 7:24 AM [facility] Potassium 4.2 3.5 - 4.5 mmol/L 08/07/2024 7:24 AM [facility] Chloride 98 98 - 107 mmol/L 08/07/2024 7:24 AM [facility] CO2 26 22 - 29 mmol/L 08/07/2024 7:24 AM [facility] Glucose 218(H) 70 - 115 mg/dL 08/07/2024 7:24 AM [facility] Calcium 8.9 8.4 - 10.2 mg/dL 08/07/2024 7:24 AM [facility] Protein Total 7.9 6.0 - 8.3 g/dL 08/07/2024 7:24 AM [facility] Albumin 2.1(L) 3.4 - 5.0 g/dL 08/07/2024 7:24 AM [facility] Bilirubin Total 0.2 0.2 - 1.2 mg/dL 08/07/2024 7:24 AM [facility] Alkaline Phosphatase 106 40 - 150 U/L 08/07/2024 7:24 AM [facility] ALT <5(L) 5 - 55 U/L 08/07/2024 7:24 AM [facility] AST 10 5 - 34 U/L 08/07/2024 7:24 AM [facility] Anion Gap 14 6 - 16 08/07/2024 7:24 AM [facility] BUN/Creatinine Ratio 5(L) 7 - 23 08/07/2024 7:24 AM [facility] Osmolality Calculated 300(H) 275 - 295 mOsm/kg 08/07/2024 7:24 AM [facility] Albumin/Globulin Ratio 0.4(L) 1.1 - 2.3 08/07/2024 7:24 AM [facility] eGFR by CKD-EPI 7(L) >=90 mL/min/1.7 3 m2 08/07/2024 7:24 AM [facility] Blood BLOOD SPECIMEN / Unknown Lab Venipuncture / Unknown 08/07/2024 5:47 AM CDT 08/07/2024 6:37 AM CDT Rob Cruz MD LAB - CHEMISTRY DIVINA [facility] Organization Address City/State/ZIP Co de Phone Number [facility] [address] [place] [address], [facility] [phone] * (ABNORMAL) CBC W AUTO DIFFERENTIAL (08/07/2024 5:47 AM CDT) WBC 12.1(H) 4.0 - 10.7 x10E9/L 08/07/2024 7:09 AM [facility] RBC Count 3.24(L) 3.90 - 5.20 x10E12/L 08/07/2024 7:09 AM [facility] Hemoglobin 9.5(L) 11.9 - 15.8 g/dL 08/07/2024 7:09 AM [facility] Hematocrit 31.3(L) 34.8 - 46.1 % 08/07/2024 7:09 AM [facility] MCV 96.6 80.0 - 98.0 fL 08/07/2024 7:09 AM [facility] MCH 29.3 26.7 - 33.6 pg 08/07/2024 7:09 AM [facility] MCHC 30.4(L) 31.7 - 36.3 g/dL 08/07/2024 7:09 AM [facility] RDW-CV 13.7 11.3 - 14.8 % 08/07/2024 7:09 AM [facility] Platelet Count 468(H) 150 - 420 x10E9/L 08/07/2024 7:09 AM [facility] MPV 9.1 7.8 - 11.4 fL 08/07/2024 7:09 AM [facility] Neutrophil % 58.3 41.0 - 74.0 % 08/07/2024 7:09 AM [facility] Lymphocyte % 20.6 17.0 - 47.0 % 08/07/2024 7:09 AM [facility] Monocyte % 10.7 3.0 - 11.0 % 08/07/2024 7:09 AM [facility] Eosinophil % 7.6(H) 0.0 - 7.0 % 08/07/2024 7:09 AM [facility] Basophil % 0.6 0.0 - 1.6 % 08/07/2024 7:09 AM [facility] Immature Granulocytes % 2.2(H) 0.0 - 1.0 % 08/07/2024 7:09 AM [facility] Neutrophil Absolute 7.04 1.60 - 7.50 x10E9/L 08/07/2024 7:09 AM [facility] Lymphocyte Absolute 2.49 1.00 - 4.40 x10E9/L 08/07/2024 7:09 AM [facility] Monocyte Absolute 1.29(H) 0.15 - 1.00 x10E9/L 08/07/2024 7:09 AM [facility] Eosinophil Absolute 0.92(H) 0.00 - 0.60 x10E9/L 08/07/2024 7:09 AM [facility] Basophil Absolute 0.07 0.00 - 0.13 x10E9/L 08/07/2024 7:09 AM [facility] Blood BLOOD SPECIMEN / Unknown Lab Venipuncture / Unknown 08/07/2024 5:47 AM CDT 08/07/2024 6:37 AM CDT Rob Cruz MD LAB - HEMATOLOGY ORD ERABLES [facility] [address] [place] [address], [place] [phone] * (ABNORMAL) GLUCOSE - POINT OF CARE (08/06/2024 8:34 PM CDT) Glucose WB/POC 173(H) 70 - 115 mg/dL 08/06/2024 8:36 PM CDT [facility] Specimen Type Cap Fingerstick 2023 8:36 PM CDT [facility] Blood BLOOD SPECIMEN / Unknown 08/06/2024 8:34 PM CDT 08/06/2024 8:36 PM CDT Rob Cruz MD LAB - POINT OF CARE ORDERABLES [facility] [address] [place] [address], [place] [phone] * (ABNORMAL) GLUCOSE - POINT OF CARE (08/06/2024 4:21 PM CDT) Glucose WB/POC 168(H) 70 - 115 mg/dL 08/06/2024 4:30 PM CDT [facility] Specimen Type Cap Fingerstick 2023 4:30 PM CDT [facility] Blood BLOOD SPECIMEN / Unknown 08/06/2024 4:21 PM CDT 08/06/2024 4:30 PM CDT Rob Cruz MD LAB - POINT OF CARE ORDERABLES [facility] [address] [place] [address], [place] [phone] * IR Central Line Insert Tunnel (08/06/2024 12:28 PM CDT) Anatomical Region Laterality Modality Chest, Upper Extremity X-Ray Ang iography 08/06/2024 12:1 5 PM CDT Addenda Addendum by Artie Aguillon MD on 08/09/2024 2:23 PM CDT Addendum [...] evaluation, please review the evaluation forms in [facility]. For details on monitored clinical parameters during the intra-service sedation time, please review the procedure nurse documentation in [facility]. > Interpreting Provider: Ingrid Aguillon MD on 08/09/2024 2:21 PM Impressions 08/06/2024 12:20 PM CDT Impression: Successful placement of left internal jugular tunneled dialysis catheter. I was present for the entire procedure. > Interpreting Provider: Ingrid Aguillon MD on 08/06/2024 12:20 PM Narrative 08/06/2024 12:20 PM CDT PROCEDURE: ??IR CENTRAL LINE INSERT TUNNEL DATE/TIME OF EXAM: ??08/06/2024 9:27 AM CLINICAL INFORMATION: None relevant/not provided if blank. Indication: R78.81: MRSA bacteremia B95.62: MRSA bacteremia N18.6: ESRD (end stage renal disease) ([facility]) Correctional Supervisor Lieutenant: Candy Aguillon M.D. Attending: Candy Aguillon M.D. Grinder Machine Knife Setter: Shaun Gomez M.D. Procedures performed: 1. Insertion [...] central veins under fluoroscopic guidance. ??A 5 Nigerien trocar was placed and a 0.035 guidewire [...] evaluation, please review the evaluation forms in [facility]. For details on monitored clinical parameters during the intra-service sedation time, please review the procedure nurse documentation in [facility]. Procedure Note Artie Aguillon MD - 08/06/2024 PROCEDURE: IR CENTRAL LINE INSERT TUNNEL DATE/TIME OF EXAM: 08/06/2024 9:27 AM CLINICAL INFORMATION: None relevant/not provided if blank. Indication: R78.81: MRSA bacteremia B95.62: MRSA bacteremia N18.6: ESRD (end stage renal disease) ([facility]) Correctional Supervisor Lieutenant: Candy Aguillon M.D. Attending: Candy Aguillon M.D. Grinder Machine Knife Setter: Shaun Gomez M.D. Procedures performed: 1. Insertion [...] central veins under fluoroscopic guidance. A 5 Nigerien trocar was placed and a 0.035 guidewire [...] response to care. Intra-service sedation start time [id number] and end time was 1212 during which I was present. Total physician intra-service sedation time was 32 minutes. For details on pre-moderate sedation and post-moderate sedation patient evaluation, please reviewthe evaluation forms in [facility]. For details on monitored clinical parameters during the intra-service sedation time, please review the procedurenurse documentation in [facility]. Impression: Successful placement of left internal jugular tunneleddialysis catheter. I was present for the entire procedure. > Interpreting Provider: Ingrid Aguillon MD on 08/06/2024 12:20 PM Rob Cruz MD IR ORDERABLES * (ABNORMAL) GLUCOSE - POINT OF CARE (08/06/2024 7:25 AM CDT) Glucose WB/POC 211(H) 70 - 115 mg/dL 08/06/2024 11:26 AM CDT [facility] Specimen Type Cap Fingerstick 2023 11:26 AM CDT [facility] Blood BLOOD SPECIMEN / Unknown 08/06/2024 7:25 AM CDT 08/06/2024 11:26 AM CDT Rob Cruz MD LAB - POINT OF CARE ORDERABLES Performing Organization Address City/[facility]/ZIP Co de Phone Number [address] [address], [place] [phone] * (ABNORMAL) PTT [facility] (08/06/2024 4:02 AM CDT) APTT 99.3(H) 23.0 - 38.4 Seconds 08/06/2024 5:15 AM CDT [facility] Comment:Suggested therapeuti c range for full dose I.V. unfractionated heparin therapy for venous thromboembolism is 71 to 109 seconds. Blood BLOOD SPECIMEN / Unknown Venipuncture / Unknown 08/06/2024 4:02 AM CDT 08/06/2024 4:46 AM CDT Geronimo Burleson MD LAB - COAGULAT ION ORDERABLES Performing Organization Address [facility]/ZIP Co de Phone Number [address] [address], [place] [phone] * MAGNESIUM BLOOD (08/06/2024 4:02 AM CDT) Magnesium 2.1 1.6 - 2.6 mg/dL 08/06/2024 5:16 AM CDT [facility] Blood BLOOD SPECIMEN / Unknown Venipuncture / Unknown 08/06/2024 4:02 AM CDT 08/06/2024 4:29 AM CDT Rob Cruz MD LAB - CHEMISTRY ORDE RABLES Performing Organization Address City/[facility]/ZIP Co de Phone Number [address] [address], [place] [phone] * (ABNORMAL) RENAL FUNCTION PANEL (08/06/2024 4:02 AM CDT) BUN 18 7 - 26 mg/dL 08/06/2024 5:16 AM [facility] Creatinine 4.60(H) 0.56 - 0.96 mg/dL 08/06/2024 5:16 AM [facility] Sodium 135(L) 136 - 145 mmol/L 08/06/2024 5:16 AM [facility] Potassium 4.2 3.5 - 4.5 mmol/L 08/06/2024 5:16 AM [facility] Chloride 96(L) 98 - 107 mmol/L 08/06/2024 5:16 AM [facility] CO2 29 22 - 29 mmol/L 08/06/2024 5:16 AM [facility] Glucose 230(H) 70 - 115 mg/dL 08/06/2024 5:16 AM [facility] Albumin 2.1(L) 3.4 - 5.0 g/dL 08/06/2024 5:16 AM [facility] Calcium 8.7 8.4 - 10.2 mg/dL 08/06/2024 5:16 AM [facility] Phosphorus 4.7 2.9 - 5.1 mg/dL 08/06/2024 5:16 AM [facility] Anion Gap 10 6 - 16 08/06/2024 5:16 AM [facility] BUN/Creatinine Ratio 4(L) 7 - 23 08/06/2024 5:16 AM [facility] Osmolality Calculated 289 275 - 295 mOsm/kg 08/06/2024 5:16 AM [facility] eGFR by CKD-EPI 12(L) >=90 mL/min/1.7 3 m2 08/06/2024 5:16 AM [facility] Blood BLOOD SPECIMEN / Unknown Venipuncture / Unknown 08/06/2024 4:02 AM CDT 08/06/2024 4:29 AM T Rob Cruz MD LAB - CHEMISTRY DIVINA OLVERA [facility] Organization Address City/State/ZIP Co de Phone Number [facility] [address] [place] [address], [facility] [phone] * (ABNORMAL) CBC W/O DIFFERENTIAL (08/06/2024 4:02 AM CDT) WBC 17.2(H) 4.0 - 10.7 x10E9/L 08/06/2024 4:52 AM [facility] RBC Count 2.98(L) 3.90 - 5.20 x10E12/L 08/06/2024 4:52 AM [facility] Hemoglobin 8.6(L) 11.9 - 15.8 g/dL 08/06/2024 4:52 AM [facility] Hematocrit 28.9(L) 34.8 - 46.1 % 08/06/2024 4:52 AM [facility] MCV 97.0 80.0 - 98.0 fL 08/06/2024 4:52 AM [facility] MCH 28.9 26.7 - 33.6 pg 08/06/2024 4:52 AM [facility] MCHC 29.8(L) 31.7 - 36.3 g/dL 08/06/2024 4:52 AM [facility] RDW-CV 13.6 11.3 - 14.8 % 08/06/2024 4:52 AM [facility] Platelet Count 608(H) 150 - 420 x10E9/L 08/06/2024 4:52 AM [facility] MPV 9.2 7.8 - 11.4 fL 08/06/2024 4:52 AM [facility] Blood BLOOD SPECIMEN / Unknown Venipuncture / Unknown 08/06/2024 4:02 AM CDT 08/06/2024 4:48 AM CDT Rob Cruz MD LAB - HEMATOLOGY ORD ERABLES [address] [address], [facility] [phone] * XR Chest 1Vw Portable (08/05/2024 8:57 PM CDT) Anatomical Region Laterality Modality Chest Digital Radiogra [...] PANEL (CALCIUM TOTAL) (08/05/2024 8:32 PM CDT) BUN 13 7 - 26 mg/dL 08/05/2024 10:04 PM [facility] Creatinine 3.42(H) 0.56 - 0.96 mg/dL 08/05/2024 10:04 PM T [facility] Sodium 134(L) 136 - 145 mmol/L 08/05/2024 10:04 PM T [facility] Potassium 3.7 3.5 - 4.5 mmol/L 08/05/2024 10:04 PM [facility] Chloride 97(L) 98 - 107 mmol/L 08/05/2024 10:04 PM [facility] CO2 23 22 - 29 mmol/L 08/05/2024 10:04 PM [facility] Glucose 218(H) 70 - 115 mg/dL 08/05/2024 10:04 PM [facility] Calcium 9.3 8.4 - 10.2 mg/dL 08/05/2024 10:04 PM [facility] Anion Gap 14 6 - 16 08/05/2024 10:04 PM [facility] BUN/Creatinine Ratio 4(L) 7 - 23 08/05/2024 10:04 PM [facility] Osmolality Calculated 285 275 - 295 mOsm/kg 08/05/2024 10:04 PM [facility] eGFR by CKD-EPI 18(L) >=90 mL/min/1.7 3 m2 08/05/2024 10:04 PM [facility] Blood BLOOD SPECIMEN / Unknown Venipuncture / Unknown 08/05/2024 8:32 PM CDT 08/05/2024 8:44 PM CDT Mateo Daugherty MD LAB - CHEMISTRY DIVINA OLVERA [address] [address], [place] [phone] * LACTIC ACID BLOOD (08/05/2024 8:32 PM CDT) Lactic Acid-Stat 1.2 <=2.0 mmol/L 08/05/2024 9:14 PM CDT [facility] Blood BLOOD SPECIMEN / Unknown Venipuncture / Unknown 08/05/2024 8:32 PM CDT 08/05/2024 8:44 PM CDT Mateo Daugherty MD LAB - CHEMISTRY DIVINA OLVERA [address] [address], [place] [phone] * (ABNORMAL) BLOOD GASES ART + COOX PANEL (08/05/2024 8:32 PM CDT) pH Arterial 7.44 7.35 - 7.45 pH 08/05/2024 8:44 PM [facility] pO2 Arterial 99 80 - 100 mmHg 08/05/2024 8:44 PM [facility] pCO2 Arterial 40 35 - 45 mmHg 8:44 PM [facility] HCO3 Arterial 27.2 20.0 - 30.0 mmol/L 08/05/2024 8:44 PM [facility] BE Arterial 2.8(H) -2.0 - 2.0 mmol/L 08/05/2024 8:44 PM [facility] Oxyhemoglobin Arterial 96.4 % 08/05/2024 8:44 PM [facility] Dexoyhemoglobin (HHB) % 2.5 % 08/05/2024 8:44 PM [facility] Methemoglobin <0.8 0.0 - 2.0 % 08/05/2024 8:44 PM [facility] Carboxyhemoglobin 1.1 0.0 - 2.0 % 2023 8:44 PM [facility] O2 Content Arterial 15.1 Interpret within clinical context ml/dL 08/05/2024 8:44 PM [facility] Hemoglobin by COOX 11.0(L) 12.0 - 15.6 g/dL 08/05/2024 8:44 PM [facility] O2 Saturation Arterial 98 90 - 100 % 08/05/2024 8:44 PM [facility] FI O2 Arterial 15.0 % 08/05/2024 8:44 PM [facility] Blood, arterial ARTERIAL BLOOD SPECIMEN / Unknown Arterial Puncture / Unknown 08/05/2024 8:32 PM CDT 08/05/2024 8:38 PM [facility] - 08/05/2024 8:[address] [facility] Carboxyhemoglobin Normal Concentration: Non-smokers: 0-2%; Smokers: 0-9%; Toxic: >20% Mateo Daugherty MD LAB - BLOOD GASES OR DERABLES [address] [address], [place] [phone] * (ABNORMAL) GLUCOSE - POINT OF CARE (08/05/2024 8:19 PM CDT) Glucose WB/POC 173(H) 70 - 115 mg/dL 08/05/2024 8:20 PM CDT [facility] Specimen Type Cap Fingerstick 2023 8:20 PM CDT [facility] Blood BLOOD SPECIMEN / Unknown 08/05/2024 8:19 PM CDT 08/05/2024 8:20 PM CDT Rob Cruz MD LAB - POINT OF CARE ORDERABLES Performing Organization Address City/[facility]/ZIP Co de Phone Number [address] [address], [place] [phone] * (ABNORMAL) GLUCOSE - POINT OF CARE (08/05/2024 11:35 AM CDT) Glucose WB/POC 154(H) 70 - 115 mg/dL 08/05/2024 11:43 AM CDT [facility] Specimen Type Cap Fingerstick 2023 11:43 AM CDT [facility] Blood BLOOD SPECIMEN / Unknown 08/05/2024 11:35 AM CDT 08/05/2024 11:43 AM CDT Rob Cruz MD LAB - POINT OF CARE ORDERABLES [address] [address], [place] [phone] * (ABNORMAL) GLUCOSE - POINT OF CARE (08/05/2024 8:19 AM CDT) Glucose WB/POC 154(H) 70 - 115 mg/dL 08/05/2024 11:43 AM CDT [facility] Specimen Type Cap Fingerstick 2023 11:43 AM CDT [facility] Blood BLOOD SPECIMEN / Unknown 08/05/2024 8:19 AM CDT 08/05/2024 11:43 AM CDT Rob Cruz MD LAB - POINT OF CARE ORDERABLES Performing Organization Address [facility]/ZIP Co de Phone Number [address] [address], [place] [phone] * (ABNORMAL) PTT [facility] (08/05/2024 4:31 AM CDT) APTT 97.3(H) 23.0 - 38.4 Seconds 08/05/2024 5:03 AM CDT [facility] Comment:Suggested therapeuti c range for full dose I.V. unfractionated heparin therapy for venous thromboembolism is 71 to 109 seconds. Blood BLOOD SPECIMEN / Unknown Venipuncture / Unknown 08/05/2024 4:31 AM CDT 08/05/2024 4:38 AM CDT Geronimo Burleson MD LAB - COAGULAT ION ORDERABLES Performing Organization Address [facility]/ZIP Co de Phone Number [address] [address], [place] [phone] * MAGNESIUM BLOOD (08/05/2024 4:31 AM CDT) Magnesium 2.2 1.6 - 2.6 mg/dL 08/05/2024 5:04 AM CDT [facility] Blood BLOOD SPECIMEN / Unknown Venipuncture / Unknown 08/05/2024 4:31 AM CDT 08/05/2024 4:37 AM CDT Rob Cruz MD LAB - CHEMISTRY ORDE RABLES Performing Organization Address City/[facility]/ZIP Co de Phone Number [address] [address], [place] [phone] * (ABNORMAL) CBC W/O DIFFERENTIAL (08/05/2024 4:31 AM CDT) WBC 12.5(H) 4.0 - 10.7 x10E9/L 08/05/2024 4:48 AM [facility] RBC Count 3.00(L) 3.90 - 5.20 x10E12/L 08/05/2024 4:48 AM [facility] Hemoglobin 8.6(L) 11.9 - 15.8 g/dL 08/05/2024 4:48 AM [facility] Hematocrit 29.2(L) 34.8 - 46.1 % 08/05/2024 4:48 AM [facility] MCV 97.3 80.0 - 98.0 fL 08/05/2024 4:48 AM [facility] MCH 28.7 26.7 - 33.6 pg 08/05/2024 4:48 AM [facility] MCHC 29.5(L) 31.7 - 36.3 g/dL 08/05/2024 4:48 AM [facility] RDW-CV 13.8 11.3 - 14.8 % 08/05/2024 4:48 AM [facility] Platelet Count 498(H) 150 - 420 x10E9/L 08/05/2024 4:48 AM [facility] MPV 8.9 7.8 - 11.4 fL 08/05/2024 4:48 AM [facility] Blood BLOOD SPECIMEN / Unknown Venipuncture / Unknown 08/05/2024 4:31 AM CDT 08/05/2024 4:31 AM CDT Rob Cruz MD LAB - HEMATOLOGY ORD ERABLES [facility] [address] [place] [address], [facility] [phone] * (ABNORMAL) RENAL FUNCTION PANEL (08/05/2024 4:31 AM CDT) BUN 30(H) 7 - 26 mg/dL 08/05/2024 5:21 AM [facility] Creatinine 6.11(H) 0.56 - 0.96 mg/dL 08/05/2024 5:21 AM [facility] Sodium 138 136 - 145 mmol/L 08/05/2024 5:21 AM [facility] Potassium 4.3 3.5 - 4.5 mmol/L 08/05/2024 5:21 AM [facility] Chloride 99 98 - 107 mmol/L 08/05/2024 5:21 AM [facility] CO2 30(H) 22 - 29 mmol/L 08/05/2024 5:21 AM [facility] Glucose 145(H) 70 - 115 mg/dL 08/05/2024 5:21 AM [facility] Albumin 1.8(L) 3.4 - 5.0 g/dL 08/05/2024 5:21 AM [facility] Calcium 8.9 8.4 - 10.2 mg/dL 08/05/2024 5:21 AM [facility] Phosphorus 6.3(H) 2.9 - 5.1 mg/dL 08/05/2024 5:21 AM [facility] Anion Gap 9 6 - 16 08/05/2024 5:21 AM [facility] BUN/Creatinine Ratio 5(L) 7 - 23 08/05/2024 5:21 AM [facility] Osmolality Calculated 295 275 - 295 mOsm/kg 08/05/2024 5:21 AM [facility] eGFR by CKD-EPI 9(L) >=90 mL/min/1.7 3 m2 08/05/2024 5:21 AM [facility] Blood BLOOD SPECIMEN / Unknown Venipuncture / Unknown 08/05/2024 4:31 AM CDT 08/05/2024 4:37 AM T Rob Cruz MD LAB - CHEMISTRY DIVINA OLVERA [facility] Organization Address City/State/ZIP Co de Phone Number [facility] [address] [place] [address], [facility] [phone] * VANCOMYCIN LEVEL RANDOM (08/05/2024 4:31 AM CDT) Pathologist [facility] Vancomycin Random 14.6 Therapeutic Ranges not established for random specimens ug/mL 08/05/2024 5:34 AM CDT [facility] Blood BLOOD SPECIMEN / Unknown Venipuncture / Unknown 08/05/2024 4:31 AM CDT 08/05/2024 4:34 AM CDT Narrative [facility] - 08/05/2024 5:34 AM CDT See institution protocol. Geronimo Burleson MD LAB - CHEMISTR Y ORDERABLES Performing Organization Address City/[facility]/ZIP Co de Phone Number [address] [address], [place] [phone] * (ABNORMAL) PTT [facility] (08/04/2024 5:51 PM CDT) [facility] APTT 74.2(H) 23.0 - 38.4 Seconds 08/04/2024 6:38 PM CDT [facility] Comment:Suggested therapeuti c range for full dose I.V. unfractionated heparin therapy for venous thromboembolism is 71 to 109 seconds. Blood BLOOD SPECIMEN / Unknown Venipuncture / Unknown 08/04/2024 5:51 PM CDT 08/04/2024 6:05 PM CDT Rob Cruz MD LAB - COAGULATION OR DERABLES Performing Organization Address City/[facility]/ZIP Co de Phone Number [address] [address], [place] [phone] * (ABNORMAL) GLUCOSE - POINT OF CARE (08/04/2024 4:13 PM CDT) [facility] Glucose WB/POC 167(H) 70 - 115 mg/dL 08/04/2024 4:18 PM CDT [facility] Specimen Type Cap Fingerstick 2023 4:18 PM CDT [facility] Blood BLOOD SPECIMEN / Unknown 08/04/2024 4:13 PM CDT 08/04/2024 4:18 PM CDT Rob Cruz MD LAB - POINT OF CARE ORDERABLES [facility] [address] [place] [address], [facility] [phone] * CULTURE BLOOD (08/04/2024 11:57 AM CDT) Culture No growth day 5 CHARLES 08/09/2024 4:[address] [facility] Blood PERIPHERAL BLOOD / Unknown Lab Venipuncture / Unknown 08/04/2024 11:57 AM CDT 08/04/2024 12:56 PM CDT Rob Cruz MD LAB - MICROBIOLOGY O RDERABLES Performing Organization Address City/[facility]/ZIP Co de Phone Number [facility] [address] [place] [address], [facility] [phone] * CULTURE BLOOD (08/04/2024 11:45 AM CDT) Culture No growth day 5 CHARLES 08/09/2024 4:[address] [facility] Blood PERIPHERAL BLOOD / Unknown Lab Venipuncture / Unknown 08/04/2024 11:45 AM CDT 08/04/2024 12:55 PM CDT Rob Cruz MD LAB - MICROBIOLOGY O DARRELL Performing Organization Address City/[facility]/ZIP Co de Phone Number [facility] [address] [place] [address], [facility] [phone] * (ABNORMAL) GLUCOSE - POINT OF CARE (08/04/2024 11:39 AM CDT) Glucose WB/POC 137(H) 70 - 115 mg/dL 08/04/2024 11:51 AM CDT [facility] Specimen Type Cap Fingerstick 2023 11:51 AM CDT [facility] Blood BLOOD SPECIMEN / Unknown 08/04/2024 11:39 AM CDT 08/04/2024 11:51 AM CDT Rob Cruz MD LAB - POINT OF CARE ORDERABLES Performing Organization Address City/[facility]/ZIP Co de Phone Number [address] [address], [facility] [phone] * (ABNORMAL) PTT [facility] (08/04/2024 11:28 AM CDT) APTT 94.4(H) 23.0 - 38.4 Seconds 08/04/2024 1:22 PM CDT [facility] Comment:Suggested therapeuti c range for full dose I.V. unfractionated heparin therapy for venous thromboembolism is 71 to 109 seconds. Blood BLOOD SPECIMEN / Unknown Venipuncture / Unknown 08/04/2024 11:28 AM CDT 08/04/2024 12:54 PM CDT Rob Cruz MD LAB - COAGULATION OR DERABLES Performing Organization Address [facility] Co de Phone Number [address] [address], [facility] [phone] * (ABNORMAL) GLUCOSE - POINT OF CARE (08/04/2024 7:32 AM CDT) Glucose WB/POC 170(H) 70 - 115 mg/dL 08/04/2024 11:51 AM CDT [facility] Specimen Type Cap Fingerstick 2023 11:51 AM CDT [facility] Blood BLOOD SPECIMEN / Unknown 08/04/2024 7:32 AM CDT 08/04/2024 11:51 AM CDT Rob Cruz MD LAB - POINT OF CARE ORDERABLES Performing Organization Address City/[facility]/ZIP Co de Phone Number [address] [address], [place] [phone] * (ABNORMAL) PTT [facility] (08/04/2024 3:55 AM CDT) APTT 156.7(HH) 23.0 - 38.4 Seconds 08/04/2024 4:40 AM CDT [facility] Comment:Suggested therapeuti c range for full dose I.V. unfractionated heparin therapy for venous thromboembolism is 71 to 109 seconds. Blood BLOOD SPECIMEN / Unknown Venipuncture / Unknown 08/04/2024 3:55 AM CDT 08/04/2024 4:11 AM CDT Rob Cruz MD LAB - COAGULATION OR DERABLES Performing Organization Address City/[facility]/ZIP Co de Phone Number [facility] [address] [place] [address], [facility] [phone] * (ABNORMAL) PTT [facility] (08/04/2024 2:54 AM CDT) APTT 169.8(HH) 23.0 - 38.4 Seconds 08/04/2024 4:12 AM CDT [facility] Comment:Suggested therapeuti c range for full dose I.V. unfractionated heparin therapy for venous thromboembolism is 71 to 109 seconds. Blood BLOOD SPECIMEN / Unknown Lab Venipuncture / Unknown 08/04/2024 2:54 AM CDT 08/04/2024 3:39 AM CDT Geronimo Burleson MD LAB - COAGULAT ION ORDERABLES Performing Organization Address City/[facility]/ZIP Co de Phone Number [facility] [address] [place] [address], [facility] [phone] * (ABNORMAL) RENAL FUNCTION PANEL (08/04/2024 2:54 AM CDT) BUN 19 7 - 26 mg/dL 08/04/2024 4:09 AM T [facility] Creatinine 4.50(H) 0.56 - 0.96 mg/dL 08/04/2024 4:09 AM T [facility] Sodium 137 136 - 145 mmol/L 08/04/2024 4:09 AM T [facility] Potassium 4.1 3.5 - 4.5 mmol/L 08/04/2024 4:09 AM [facility] Chloride 98 98 - 107 mmol/L 08/04/2024 4:09 AM [facility] CO2 28 22 - 29 mmol/L 08/04/2024 4:09 AM [facility] Glucose 172(H) 70 - 115 mg/dL 08/04/2024 4:09 AM [facility] Albumin 1.9(L) 3.4 - 5.0 g/dL 08/04/2024 4:09 AM [facility] Calcium 8.9 8.4 - 10.2 mg/dL 08/04/2024 4:09 AM [facility] Phosphorus 4.4 2.9 - 5.1 mg/dL 08/04/2024 4:09 AM [facility] Anion Gap 11 6 - 16 08/04/2024 4:09 AM [facility] BUN/Creatinine Ratio 4(L) 7 - 23 08/04/2024 4:09 AM [facility] Osmolality Calculated 290 275 - 295 mOsm/kg 08/04/2024 4:09 AM [facility] eGFR by CKD-EPI 13(L) >=90 mL/min/1.7 3 m2 08/04/2024 4:09 AM [facility] Blood BLOOD SPECIMEN / Unknown Lab Venipuncture / Unknown 08/04/2024 2:54 AM CDT 08/04/2024 3:41 AM CDT Rob Cruz MD LAB - CHEMISTRY DIVINA OLVERA [facility] Organization Address City/State/[facility] Co de Phone Number [facility] [address] [place] [phone], [facility] [phone] * PT-INR [facility] (08/04/2024 2:54 AM CDT) PT 14.6 12.1 - 14.8 Seconds 08/04/2024 4:12 AM [facility] INR 1.2 See Comment 08/04/2024 4:12 AM [facility] Comment:The suggested therap eutic range for standard coumadin (warfarin) therapy is an INR of 2.0-3.0. For high-risk patients (Mechanical Mitral Valve Prosthesis, etc.), the suggested prophylactic therapeutic range is an INR of 2.5-3.5. Blood BLOOD SPECIMEN / Unknown Lab Venipuncture / Unknown 08/04/2024 2:54 AM CDT 08/04/2024 3:39 AM CDT Rob Cruz MD LAB - COAGULATION OR DERABLES Performing Organization Address City/[facility]/ZIP Co de Phone Number [address] [phone], [place] [phone] * MAGNESIUM BLOOD (08/04/2024 2:54 AM CDT) [facility] Magnesium 2.0 1.6 - 2.6 mg/dL 08/04/2024 4:09 AM CDT [facility] Blood BLOOD SPECIMEN / Unknown Lab Venipuncture / Unknown 08/04/2024 2:54 AM CDT 08/04/2024 3:41 AM CDT Rob Cruz MD LAB - CHEMISTRY ORDE RABLES Performing Organization Address City/[facility]/ZIP Co de Phone Number [address] [phone], [place] [phone] * (ABNORMAL) GLUCOSE - POINT OF CARE (08/03/2024 9:23 PM CDT) [facility] Glucose WB/POC 147(H) 70 - 115 mg/dL 08/04/2024 12:20 AM CDT [facility] Specimen Type Cap Fingerstick 2023 12:20 AM CDT [facility] Blood BLOOD SPECIMEN / Unknown 08/03/2024 9:23 PM CDT 08/04/2024 12:20 AM CDT Rob Cruz MD LAB - POINT OF CARE ORDERABLES Performing Organization Address City/[facility]/ZIP Co de Phone Number [address] [address], [place] [phone] * (ABNORMAL) PTT [facility] (08/03/2024 8:35 PM CDT) [facility] APTT 103.7(HH) 23.0 - 38.4 Seconds 08/03/2024 9:22 PM CDT [facility] Comment:Suggested therapeuti c range for full dose I.V. unfractionated heparin therapy for venous thromboembolism is 71 to 109 seconds. Blood BLOOD SPECIMEN / Unknown Venipuncture / Unknown 08/03/2024 8:35 PM CDT 08/03/2024 8:44 PM CDT Rob Cruz MD LAB - COAGULATION OR DERABLES Performing Organization Address City/[facility]/ZIP Co de Phone Number [address] [address], [place] [phone] * (ABNORMAL) GLUCOSE - POINT OF CARE (08/03/2024 5:47 PM CDT) [facility] Glucose WB/POC 168(H) 70 - 115 mg/dL 08/03/2024 5:49 PM CDT [facility] Specimen Type Cap Fingerstick 2023 5:49 PM CDT [facility] Blood BLOOD SPECIMEN / Unknown 08/03/2024 5:47 PM CDT 08/03/2024 5:49 PM CDT Rob Cruz MD LAB - POINT OF CARE ORDERABLES Performing Organization Address City/[facility]/ZIP Co de Phone Number [address] [address], [place] [phone] * (ABNORMAL) PTT [facility] (08/03/2024 11:07 AM CDT) APTT 118.0(HH) 23.0 - 38.4 Seconds 08/03/2024 11:53 AM CDT [facility] Comment:Suggested therapeuti c range for full dose I.V. unfractionated heparin therapy for venous thromboembolism is 71 to 109 seconds. Blood BLOOD SPECIMEN / Unknown Venipuncture / Unknown 08/03/2024 11:07 AM CDT 08/03/2024 11:19 AM CDT Rob Cruz MD LAB - COAGULATION OR DERABLES Performing Organization Address City/[facility]/ZIP Co de Phone Number [facility] [address] [place] [address], [facility] [phone] * (ABNORMAL) GLUCOSE - POINT OF CARE (08/03/2024 7:51 AM CDT) Glucose WB/POC 131(H) 70 - 115 mg/dL 08/03/2024 11:56 AM CDT [facility] Specimen Type Cap Fingerstick 2023 11:56 AM CDT [facility] Blood BLOOD SPECIMEN / Unknown 08/03/2024 7:51 AM CDT 08/03/2024 11:56 AM CDT Rob Cruz MD LAB - POINT OF CARE ORDERABLES Performing Organization Address [facility]/ZIP Co de Phone Number [facility] [address] [place] [address], [facility] [phone] * (ABNORMAL) PTT [facility] (08/03/2024 5:38 AM CDT) APTT 150.1(HH) 23.0 - 38.4 Seconds 08/03/2024 7:19 AM CDT [facility] Comment:Suggested therapeuti c range for full dose I.V. unfractionated heparin therapy for venous thromboembolism is 71 to 109 seconds. Blood BLOOD SPECIMEN / Unknown Lab Venipuncture / Unknown 08/03/2024 5:38 AM CDT 08/03/2024 6:47 AM CDT Rob Cruz MD LAB - COAGULATION OR DERABLES Performing Organization Address City/[facility]/ZIP Co de Phone Number [facility] [address] [place] [address], [place] [phone] * PT-INR [facility] (08/03/2024 5:38 AM CDT) PT 14.5 12.1 - 14.8 Seconds 08/03/2024 7:19 AM CDT [facility] INR 1.2 See Comment 08/03/2024 7:19 AM [facility] Comment:The suggested therap eutic range for standard coumadin (warfarin) therapy is an INR of 2.0-3.0. For high-risk patients (Mechanical Mitral Valve Prosthesis, etc.), the suggested prophylactic therapeutic range is an INR of 2.5-3.5. Blood BLOOD SPECIMEN / Unknown Lab Venipuncture / Unknown 08/03/2024 5:38 AM CDT 08/03/2024 6:47 AM CDT Geronimo Burleson MD LAB - COAGULAT ION ORDERABLES Performing Organization Address City/[facility]/ZIP Co de Phone Number [address] [address], [facility] [phone] * MAGNESIUM BLOOD (08/03/2024 5:38 AM CDT) Magnesium 2.1 1.6 - 2.6 mg/dL 08/03/2024 7:17 AM [facility] Blood BLOOD SPECIMEN / Unknown Lab Venipuncture / Unknown 08/03/2024 5:38 AM CDT 08/03/2024 6:50 AM CDT Geronimo Burleson MD LAB - CHEMISTR Y ORDERABLES Performing Organization Address City/[facility]/ZIP Co de Phone Number [address] [address], [facility] [phone] * (ABNORMAL) RENAL FUNCTION PANEL (08/03/2024 5:38 AM CDT) BUN 37(H) 7 - 26 mg/dL 08/03/2024 7:17 AM [facility] Creatinine 6.54(H) 0.56 - 0.96 mg/dL 08/03/2024 7:17 AM [facility] Sodium 136 136 - 145 mmol/L 08/03/2024 7:17 AM [facility] Potassium 4.0 3.5 - 4.5 mmol/L 08/03/2024 7:17 AM CDT [facility] Chloride 100 98 - 107 mmol/L 08/03/2024 7:17 AM [facility] CO2 25 22 - 29 mmol/L 08/03/2024 7:17 AM [facility] Glucose 136(H) 70 - 115 mg/dL 08/03/2024 7:17 AM [facility] Albumin 1.7(L) 3.4 - 5.0 g/dL 08/03/2024 7:17 AM [facility] Calcium 8.3(L) 8.4 - 10.2 mg/dL 08/03/2024 7:17 AM [facility] Phosphorus 6.1(H) 2.9 - 5.1 mg/dL 08/03/2024 7:17 AM [facility] Anion Gap 11 6 - 16 08/03/2024 7:17 AM [facility] BUN/Creatinine Ratio 6(L) 7 - 23 08/03/2024 7:17 AM [facility] Osmolality Calculated 293 275 - 295 mOsm/kg 08/03/2024 7:17 AM [facility] eGFR by CKD-EPI 8(L) >=90 mL/min/1.7 3 m2 08/03/2024 7:17 AM [facility] Blood BLOOD SPECIMEN / Unknown Lab Venipuncture / Unknown 08/03/2024 5:38 AM CDT 08/03/2024 6:50 AM CDT Ralph Burt MD LAB - CHEMISTRY DIVINA OLVERA [facility] Organization Address City/State/ZIP Co de Phone Number [facility] [address] [place] [address], [facility] [phone] * (ABNORMAL) PTT [facility] (08/03/2024 2:14 AM CDT) APTT 63.0(H) 23.0 - 38.4 Seconds 08/03/2024 2:55 AM [facility] Comment:Suggested therapeuti c range for full dose I.V. unfractionated heparin therapy for venous thromboembolism is 71 to 109 seconds. Blood BLOOD SPECIMEN / Unknown Venipuncture / Unknown 08/03/2024 2:14 AM CDT 08/03/2024 2:30 AM CDT Rob Cruz MD LAB - COAGULATION OR DERABLES Performing Organization Address City/[facility]/ZIP Co de Phone Number [facility] [address] [place] [address], [place] [phone] * (ABNORMAL) GLUCOSE - POINT OF CARE (08/02/2024 8:50 PM CDT) [facility] Glucose WB/POC 281(H) 70 - 115 mg/dL 08/03/2024 7:58 AM CDT [facility] Specimen Type Cap Fingerstick 2023 7:58 AM CDT [facility] Blood BLOOD SPECIMEN / Unknown 08/02/2024 8:50 PM CDT 08/03/2024 7:57 AM CDT Kwaku Ellsworth MD LAB - POINT OF CARE ORDERABLES Performing Organization Address City/[facility]/ZIP Co de Phone Number [address] [address], [place] [phone] * (ABNORMAL) PTT [facility] (08/02/2024 5:53 PM CDT) [facility] APTT 105.9(HH) 23.0 - 38.4 Seconds 08/02/2024 6:59 PM CDT [facility] Comment:Suggested therapeuti c range for full dose I.V. unfractionated heparin therapy for venous thromboembolism is 71 to 109 seconds. Blood BLOOD SPECIMEN / Unknown Venipuncture / Unknown 08/02/2024 5:53 PM CDT 08/02/2024 6:28 PM CDT Geronimo Burleson MD LAB - COAGULAT ION ORDERABLES Performing Organization Address City/[facility]/ZIP Co de Phone Number [address] [address], [place] [phone] * (ABNORMAL) GLUCOSE - POINT OF CARE (08/02/2024 12:28 PM CDT) Glucose WB/POC 167(H) 70 - 115 mg/dL 08/02/2024 4:22 PM CDT [facility] Specimen Type Arterial 08/02/2024 4:22 PM CDT [facility] Blood BLOOD SPECIMEN / Unknown 08/02/2024 12:28 PM CDT 08/02/2024 4:22 PM CDT Geronimo Burleson MD LAB - POINT OF CARE ORDERABLES [address] [address], [place] [phone] * CULTURE BLOOD (08/02/2024 9:02 AM CDT) Pathologist [facility] Culture No growth day 5 CHARLES 08/07/2024 10:[address] [facility] Blood PERIPHERAL BLOOD / Unknown Lab Venipuncture / Unknown 08/02/2024 9:02 AM CDT 08/02/2024 9:22 AM CDT Geronmio Burleson MD LAB - MICROBIO LOGY ORDERABLES Performing Organization Address City/[facility]/ZIP Co de Phone Number [facility] [address] [place] [address], [facility] [phone] * (ABNORMAL) GLUCOSE - POINT OF CARE (08/02/2024 8:34 AM CDT) Glucose WB/POC 150(H) 70 - 115 mg/dL 08/02/2024 11:58 AM CDT [facility] Specimen Type Arterial 08/02/2024 11:58 AM CDT [facility] Blood BLOOD SPECIMEN / Unknown 08/02/2024 8:34 AM CDT 08/02/2024 11:58 AM CDT Geronimo Burleson MD LAB - POINT OF CARE ORDERABLES Performing Organization Address City/[facility]/ZIP Co de Phone Number [address] [address], [place] [phone] * (ABNORMAL) PTT [facility] (08/02/2024 8:04 AM CDT) APTT 43.2(H) 23.0 - 38.4 Seconds 08/02/2024 8:37 AM CDT [facility] Comment:Suggested therapeuti c range for full dose I.V. unfractionated heparin therapy for venous thromboembolism is 71 to 109 seconds. Blood BLOOD SPECIMEN / Unknown Clinic Draw / Unknown 08/02/2024 8:04 AM CDT 08/02/2024 8:08 AM CDT Geroniom Burleson MD LAB - COAGULAT ION ORDERABLES [address] [address], [facility] [phone] * PT-INR [facility] (08/02/2024 8:04 AM CDT) Pathologist [facility] PT 13.3 12.1 - 14.8 Seconds 08/02/2024 8:37 AM CDT [facility] INR 1.0 See Comment 08/02/2024 8:37 AM T [facility] Comment:The suggested therap eutic range for standard coumadin (warfarin) therapy is an INR of 2.0-3.0. For high-risk patients (Mechanical Mitral Valve Prosthesis, etc.), the suggested prophylactic therapeutic range is an INR of 2.5-3.5. Blood BLOOD SPECIMEN / Unknown Clinic Draw / Unknown 08/02/2024 8:04 AM CDT 08/02/2024 8:08 AM CDT Geronimo Burleson MD LAB - COAGULAT ION ORDERABLES [address] [address], [facility] [phone] * MAGNESIUM BLOOD (08/02/2024 8:04 AM CDT) Magnesium 2.1 1.6 - 2.6 mg/dL 08/02/2024 8:41 AM [facility] Blood BLOOD SPECIMEN / Unknown Clinic Draw / Unknown 08/02/2024 8:04 AM CDT 08/02/2024 8:10 AM T Geronimo Burleson MD LAB - CHEMISTR Y ORDERABLES Performing Organization Address City/[facility]/ZIP Co de Phone Number [facility] [address] [place] [address], [facility] [phone] * (ABNORMAL) RENAL FUNCTION PANEL (08/02/2024 8:[address] [facility]) BUN 35(H) 7 - 26 mg/dL 08/02/2024 8:41 AM [facility] Creatinine 6.11(H) 0.56 - 0.96 mg/dL 08/02/2024 8:41 AM [facility] Sodium 139 136 - 145 mmol/L 08/02/2024 8:41 AM [facility] Potassium 4.0 3.5 - 4.5 mmol/L 08/02/2024 8:41 AM [facility] Chloride 102 98 - 107 mmol/L 08/02/2024 8:41 AM [facility] CO2 26 22 - 29 mmol/L 08/02/2024 8:41 AM [facility] Glucose 152(H) 70 - 115 mg/dL 08/02/2024 8:41 AM [facility] Albumin 1.7(L) 3.4 - 5.0 g/dL 08/02/2024 8:41 AM [facility] Calcium 8.6 8.4 - 10.2 mg/dL 08/02/2024 8:41 AM [facility] Phosphorus 6.5(H) 2.9 - 5.1 mg/dL 08/02/2024 8:41 AM [facility] Anion Gap 11 6 - 16 08/02/2024 8:41 AM [facility] BUN/Creatinine Ratio 6(L) 7 - 23 08/02/2024 8:41 AM [facility] Osmolality Calculated 299(H) 275 - 295 mOsm/kg 08/02/2024 8:41 AM [facility] eGFR by CKD-EPI 9(L) >=90 mL/min/1.7 3 m2 08/02/2024 8:41 AM [facility] Blood BLOOD SPECIMEN / Unknown Clinic Draw / Unknown 08/02/2024 8:04 AM CDT 08/02/2024 8:10 AM CDT Ralph Burt MD LAB - CHEMISTRY DIVINA OLVERA [facility] Organization Address City/State/ZIP Co de Phone Number [facility] [address] [place] [address], [facility] [phone] * (ABNORMAL) CBC W AUTO DIFFERENTIAL (08/02/2024 8:[address] [facility]) WBC 14.8(H) 4.0 - 10.7 x10E9/L 08/02/2024 8:24 AM [facility] RBC Count 3.12(L) 3.90 - 5.20 x10E12/L 08/02/2024 8:24 AM [facility] Hemoglobin 9.1(L) 11.9 - 15.8 g/dL 08/02/2024 8:24 AM [facility] Hematocrit 29.7(L) 34.8 - 46.1 % 08/02/2024 8:24 AM [facility] MCV 95.2 80.0 - 98.0 fL 08/02/2024 8:24 AM [facility] MCH 29.2 26.7 - 33.6 pg 08/02/2024 8:24 AM [facility] MCHC 30.6(L) 31.7 - 36.3 g/dL 08/02/2024 8:24 AM [facility] RDW-CV 13.6 11.3 - 14.8 % 08/02/2024 8:24 AM [facility] Platelet Count 520(H) 150 - 420 x10E9/L 08/02/2024 8:24 AM [facility] MPV 8.8 7.8 - 11.4 fL 08/02/2024 8:24 AM [facility] Neutrophil % 68.2 41.0 - 74.0 % 08/02/2024 8:24 AM [facility] Lymphocyte % 16.6(L) 17.0 - 47.0 % 08/02/2024 8:24 AM [facility] Monocyte % 7.6 3.0 - 11.0 % 08/02/2024 8:24 AM [facility] Eosinophil % 5.8 0.0 - 7.0 % 08/02/2024 8:24 AM [facility] Basophil % 0.3 0.0 - 1.6 % 08/02/2024 8:24 AM [facility] Immature Granulocytes % 1.5(H) 0.0 - 1.0 % 08/02/2024 8:24 AM [facility] Neutrophil Absolute 10.07(H) 1.60 - 7.50 x10E9/L 08/02/2024 8:24 AM [facility] Lymphocyte Absolute 2.45 1.00 - 4.40 x10E9/L 08/02/2024 8:24 AM [facility] Monocyte Absolute 1.12(H) 0.15 - 1.00 x10E9/L 08/02/2024 8:24 AM [facility] Eosinophil Absolute 0.86(H) 0.00 - 0.60 x10E9/L 08/02/2024 8:24 AM [facility] Basophil Absolute 0.05 0.00 - 0.13 x10E9/L 08/02/2024 8:24 AM [facility] Blood BLOOD SPECIMEN / Unknown Clinic Draw / Unknown 08/02/2024 8:04 AM CDT 08/02/2024 8:09 AM CDT Geronimo Burleson MD LAB - HEMATOLO GY ORDERABLES [facility] [address] [place] [address], [facility] [phone] * (ABNORMAL) GLUCOSE - POINT OF CARE (08/01/2024 4:42 PM CDT) Glucose WB/POC 146(H) 70 - 115 mg/dL 08/01/2024 4:47 PM CDT [facility] Specimen Type Arterial 08/01/2024 4:47 PM CDT [facility] Blood BLOOD SPECIMEN / Unknown 08/01/2024 4:42 PM CDT 08/01/2024 4:47 PM CDT Geronimo Burleson MD LAB - POINT OF CARE ORDERABLES [address] [address], [place] [phone] * (ABNORMAL) GLUCOSE - POINT OF CARE (08/01/2024 11:50 AM CDT) Glucose WB/POC 226(H) 70 - 115 mg/dL 08/01/2024 11:57 AM CDT [facility] Specimen Type Arterial 08/01/2024 11:57 AM CDT [facility] Blood BLOOD SPECIMEN / Unknown 08/01/2024 11:50 AM CDT 08/01/2024 11:57 AM CDT Geronimo Burleson MD LAB - POINT OF CARE ORDERABLES Performing Organization Address City/[facility]/ZIP Co de Phone Number [address] [address], [place] [phone] * (ABNORMAL) C-REACTIVE PROTEIN (08/01/2024 11:21 AM CDT) [facility] C-Reactive Protein 10.1(H) <=0.5 mg/dL 08/01/2024 12:23 PM CDT [facility] Blood BLOOD SPECIMEN / Unknown Lab Venipuncture / Unknown 08/01/2024 11:21 AM CDT 08/01/2024 11:59 AM CDT Geronimo Burleson MD LAB - CHEMISTR Y ORDERABLES [address] [place] [address], [facility] [phone] * (ABNORMAL) ERYTHROCYTE SEDIMENTATION RATE (08/01/2024 11:21 AM CDT) Pathologist [facility] Erythrocyte Sedimentation Rate Westergren 128(H) 0 - 20 MM/HR 08/01/2024 12:18 PM CDT [facility] Blood BLOOD SPECIMEN / Unknown Lab Venipuncture / Unknown 08/01/2024 11:21 AM CDT 08/01/2024 11:59 AM CDT Geronimo Burleson MD LAB - HEMATOLO GY ORDERABLES [facility] [address] [place] [address], [facility] [phone] * (ABNORMAL) GLUCOSE - POINT OF CARE (08/01/2024 8:05 AM CDT) [facility] Glucose WB/POC 147(H) 70 - 115 mg/dL 08/01/2024 8:09 AM T [facility] Specimen Type Arterial 08/01/2024 8:09 AM T [facility] Blood BLOOD SPECIMEN / Unknown 08/01/2024 8:05 AM CDT 08/01/2024 8:09 AM CDT Geronimo Burleson MD LAB - POINT OF CARE ORDERABLES [facility] [address] [place] [address], [place] [phone] * (ABNORMAL) PTT [facility] (08/01/2024 6:48 AM CDT) Pathologist [facility] APTT 81.7(H) 23.0 - 38.4 Seconds 08/01/2024 7:30 AM CDT [facility] Comment:Suggested therapeuti c range for full dose I.V. unfractionated heparin therapy for venous thromboembolism is 71 to 109 seconds. Blood BLOOD SPECIMEN / Unknown Venipuncture / Unknown 08/01/2024 6:48 AM CDT 08/01/2024 6:53 AM CDT Geronimo Burleson MD LAB - COAGULAT ION ORDERABLES Performing Organization Address City/[facility]/ZIP Co de Phone Number [facility] [address] [place] [address], [facility] [phone] * CULTURE BLOOD (08/01/2024 1:47 AM CDT) Culture No growth day 5 CHARLES 08/06/2024 5:[address] [facility] Blood PERIPHERAL BLOOD / Unknown Lab Venipuncture / Unknown 08/01/2024 1:47 AM CDT 08/01/2024 2:30 AM CDT Geronimo Burleson MD LAB - MICROBIO LOGY ORDERABLES Performing Organization Address [facility] Co de Phone Number [facility] [address] [place] [address], [facility] [phone] * CULTURE BLOOD (08/01/2024 1:47 AM CDT) Culture No growth day 5 CHARLES 08/06/2024 5:[address] [facility] Blood PERIPHERAL BLOOD / Unknown Lab Venipuncture / Unknown 08/01/2024 1:47 AM CDT 08/01/2024 2:30 AM CDT Geronimo Burleson MD LAB - MICROBIO LOGY ORDERABLES Performing Organization Address City/[facility] Co de Phone Number [facility] [address] [place] [address], [facility] [phone] * PT-INR [facility] (08/01/2024 12:42 AM CDT) PT 14.0 12.1 - 14.8 Seconds 08/01/2024 1:31 AM CDT [facility] INR 1.1 See Comment 08/01/2024 1:31 AM CDT [facility] Comment:The suggested therap eutic range for standard coumadin (warfarin) therapy is an INR of 2.0-3.0. For high-risk patients (Mechanical Mitral Valve Prosthesis, etc.), the suggested prophylactic therapeutic range is an INR of 2.5-3.5. Blood BLOOD SPECIMEN / Unknown 08/01/2024 12:42 AM CDT 08/01/2024 1:00 AM CDT Geronimo Burleson MD LAB - COAGULAT ION ORDERABLES Performing Organization Address [facility]/ZIP Co de Phone Number [address] [address], [facility] [phone] * MAGNESIUM BLOOD (08/01/2024 12:42 AM CDT) Magnesium 2.0 1.6 - 2.6 mg/dL 08/01/2024 1:33 AM T [facility] Blood BLOOD SPECIMEN / Unknown Venipuncture / Unknown 08/01/2024 12:42 AM CDT 08/01/2024 1:05 AM CDT Geronimo Burleson MD LAB - CHEMISTR Y ORDERABLES Performing Organization Address [facility]/ZIP Co de Phone Number [address] [address], [facility] [phone] * (ABNORMAL) RENAL FUNCTION PANEL (08/01/2024 12:42 AM CDT) BUN 24 7 - 26 mg/dL 08/01/2024 1:33 AM [facility] Creatinine 5.20(H) 0.56 - 0.96 mg/dL 08/01/2024 1:33 AM [facility] Sodium 135(L) 136 - 145 mmol/L 08/01/2024 1:33 AM [facility] Potassium 4.0 3.5 - 4.5 mmol/L 08/01/2024 1:33 AM [facility] Chloride 100 98 - 107 mmol/L 08/01/2024 1:33 AM [facility] CO2 26 22 - 29 mmol/L 08/01/2024 1:33 AM [facility] Glucose 220(H) 70 - 115 mg/dL 08/01/2024 1:33 AM [facility] Albumin 1.7(L) 3.4 - 5.0 g/dL 08/01/2024 1:33 AM [facility] Calcium 7.7(L) 8.4 - 10.2 mg/dL 08/01/2024 1:33 AM [facility] Phosphorus 4.7 2.9 - 5.1 mg/dL 08/01/2024 1:33 AM [facility] Anion Gap 9 6 - 16 08/01/2024 1:33 AM [facility] BUN/Creatinine Ratio 5(L) 7 - 23 08/01/2024 1:33 AM [facility] Osmolality Calculated 291 275 - 295 mOsm/kg 08/01/2024 1:33 AM [facility] eGFR by CKD-EPI 11(L) >=90 mL/min/1.7 3 m2 08/01/2024 1:33 AM [facility] Blood BLOOD SPECIMEN / Unknown Venipuncture / Unknown 08/01/2024 12:42 AM CDT 08/01/2024 1:05 AM CDT Ralph Burt MD LAB - CHEMISTRY DIVINA OLVERA Performing Organization Address City/[facility] Co de Phone Number [facility] [address] [place] [address], [facility] [phone] * (ABNORMAL) PTT [facility] (08/01/2024 12:42 AM CDT) APTT 73.2(H) 23.0 - 38.4 Seconds 08/01/2024 1:31 AM [facility] Comment:Suggested therapeuti c range for full dose I.V. unfractionated heparin therapy for venous thromboembolism is 71 to 109 seconds. Blood BLOOD SPECIMEN / Unknown 08/01/2024 12:42 AM CDT 08/01/2024 1:00 AM CDT Geronimo Burleson MD LAB - COAGULAT ION ORDERABLES [facility] [address] [place] [address], [facility] [phone] * (ABNORMAL) CBC W AUTO DIFFERENTIAL (08/01/2024 12:42 AM CDT) WBC 15.0(H) 4.0 - 10.7 x10E9/L 08/01/2024 1:20 AM [facility] RBC Count 3.12(L) 3.90 - 5.20 x10E12/L 08/01/2024 1:20 AM [facility] Hemoglobin 9.0(L) 11.9 - 15.8 g/dL 08/01/2024 1:20 AM [facility] Hematocrit 29.7(L) 34.8 - 46.1 % 08/01/2024 1:20 AM [facility] MCV 95.2 80.0 - 98.0 fL 08/01/2024 1:20 AM [facility] MCH 28.8 26.7 - 33.6 pg 08/01/2024 1:20 AM [facility] MCHC 30.3(L) 31.7 - 36.3 g/dL 08/01/2024 1:20 AM [facility] RDW-CV 13.5 11.3 - 14.8 % 08/01/2024 1:20 AM [facility] Platelet Count 490(H) 150 - 420 x10E9/L 08/01/2024 1:20 AM [facility] MPV 8.9 7.8 - 11.4 fL 08/01/2024 1:20 AM [facility] Neutrophil % 70.3 41.0 - 74.0 % 08/01/2024 1:20 AM [facility] Lymphocyte % 15.0(L) 17.0 - 47.0 % 08/01/2024 1:20 AM [facility] Monocyte % 7.5 3.0 - 11.0 % 08/01/2024 1:20 AM [facility] Eosinophil % 5.4 0.0 - 7.0 % 08/01/2024 1:20 AM [facility] Basophil % 0.3 0.0 - 1.6 % 08/01/2024 1:20 AM [facility] Immature Granulocytes % 1.5(H) 0.0 - 1.0 % 08/01/2024 1:20 AM [facility] Neutrophil Absolute 10.51(H) 1.60 - 7.50 x10E9/L 08/01/2024 1:20 AM [facility] Lymphocyte Absolute 2.24 1.00 - 4.40 x10E9/L 08/01/2024 1:20 AM [facility] Monocyte Absolute 1.13(H) 0.15 - 1.00 x10E9/L 08/01/2024 1:20 AM [facility] Eosinophil Absolute 0.81(H) 0.00 - 0.60 x10E9/L 08/01/2024 1:20 AM [facility] Basophil Absolute 0.05 0.00 - 0.13 x10E9/L 08/01/2024 1:20 AM [facility] Blood BLOOD SPECIMEN / Unknown Venipuncture / Unknown 08/01/2024 12:42 AM CDT 08/01/2024 1:07 AM CDT Geronimo Burleson MD LAB - HEMATOLO GY ORDERABLES [facility] [address] [place] [address], [facility] [phone] * (ABNORMAL) PTT [facility] (07/31/2024 5:20 PM CDT) APTT 67.1(H) 23.0 - 38.4 Seconds 07/31/2024 6:01 PM T [facility] Comment:Suggested therapeuti c range for full dose I.V. unfractionated heparin therapy for venous thromboembolism is 71 to 109 seconds. Blood BLOOD SPECIMEN / Unknown Venipuncture / Unknown 07/31/2024 5:20 PM CDT 07/31/2024 5:36 PM CDT Geronimo Burleson MD LAB - COAGULAT ION ORDERABLES [facility] [address] [place] [address], [facility] [phone] * (ABNORMAL) CULTURE BLOOD (07/31/2024 5:20 PM CDT) Culture Growth of Staphylococcus hominis(AA) 08/06/2024 4:[address] [facility] Comment:Possible contaminant unless multiple cultures are positive for the same isolate. Gram Stain Gram-positive cocci in clusters(AA) 08/06/2024 4:[address] [facility] Blood PERIPHERAL BLOOD / Unknown Venipuncture / Unknown 07/31/2024 5:20 PM CDT 07/31/2024 5:[address] [facility] - 08/06/2024 4:30 PM CDT Positive at 17 Hours 12 Minutes Geronimo Burleson MD LAB - MICROBIO LOGY ORDERABLES [facility] [address] [place] [id number], [facility] [phone] * (ABNORMAL) CBC W AUTO DIFFERENTIAL (07/31/2024 5:20 PM CDT) WBC 15.1(H) 4.0 - 10.7 x10E9/L 07/31/2024 5:43 PM CDT [facility] RBC Count 3.29(L) 3.90 - 5.20 x10E12/L 07/31/2024 5:43 PM CDT [facility] Hemoglobin 9.6(L) 11.9 - 15.8 g/dL 07/31/2024 5:43 PM CDT [facility] Hematocrit 31.1(L) 34.8 - 46.1 % 07/31/2024 5:43 PM CDT [facility] MCV 94.5 80.0 - 98.0 fL 07/31/2024 5:43 PM CDT [facility] MCH 29.2 26.7 - 33.6 pg 07/31/2024 5:43 PM [facility] MCHC 30.9(L) 31.7 - 36.3 g/dL 07/31/2024 5:43 PM [facility] RDW-CV 13.4 11.3 - 14.8 % 07/31/2024 5:43 PM [facility] Platelet Count 539(H) 150 - 420 x10E9/L 07/31/2024 5:43 PM [facility] MPV 8.9 7.8 - 11.4 fL 07/31/2024 5:43 PM [facility] Neutrophil % 76.1(H) 41.0 - 74.0 % 07/31/2024 5:43 PM [facility] Lymphocyte % 10.6(L) 17.0 - 47.0 % 07/31/2024 5:43 PM [facility] Monocyte % 6.8 3.0 - 11.0 % 07/31/2024 5:43 PM [facility] Eosinophil % 4.0 0.0 - 7.0 % 07/31/2024 5:43 PM [facility] Basophil % 0.4 0.0 - 1.6 % 07/31/2024 5:43 PM [facility] Immature Granulocytes % 2.1(H) 0.0 - 1.0 % 07/31/2024 5:43 PM [facility] Neutrophil Absolute 11.50(H) 1.60 - 7.50 x10E9/L 07/31/2024 5:43 PM [facility] Lymphocyte Absolute 1.60 1.00 - 4.40 x10E9/L 07/31/2024 5:43 PM [facility] Monocyte Absolute 1.03(H) 0.15 - 1.00 x10E9/L 07/31/2024 5:43 PM [facility] Eosinophil Absolute 0.61(H) 0.00 - 0.60 x10E9/L 07/31/2024 5:43 PM [facility] Basophil Absolute 0.06 0.00 - 0.13 x10E9/L 07/31/2024 5:43 PM [facility] Blood BLOOD SPECIMEN / Unknown Venipuncture / Unknown 07/31/2024 5:20 PM CDT 07/31/2024 5:36 PM CDT Geronimo Burleson MD LAB - HEMATOLO GY ORDERABLES [facility] [address] [place] [address], [place] [phone] * (ABNORMAL) GLUCOSE - POINT OF CARE (07/31/2024 4:53 PM CDT) Glucose WB/POC 223(H) 70 - 115 mg/dL 07/31/2024 6:12 PM CDT [facility] Specimen Type Cap Fingerstick 2023 6:12 PM CDT [facility] Blood BLOOD SPECIMEN / Unknown 07/31/2024 4:53 PM CDT 07/31/2024 6:12 PM CDT Geronimo Burleson MD LAB - POINT OF CARE ORDERABLES [address] [address], [place] [phone] * (ABNORMAL) GLUCOSE - POINT OF CARE (07/31/2024 11:05 AM CDT) Glucose WB/POC 149(H) 70 - 115 mg/dL 07/31/2024 11:27 AM CDT [facility] Specimen Type Cap Fingerstick 2023 11:27 AM CDT [facility] Blood BLOOD SPECIMEN / Unknown 07/31/2024 11:05 AM CDT 07/31/2024 11:27 AM CDT Geronimo Burleson MD LAB - POINT OF CARE ORDERABLES [address] [address], [place] [phone] * (ABNORMAL) GLUCOSE - POINT OF CARE (07/31/2024 8:35 AM CDT) Glucose WB/POC 168(H) 70 - 115 mg/dL 07/31/2024 11:03 AM T [facility] Specimen Type Cap Fingerstick 2023 11:03 AM CDT [facility] Blood BLOOD SPECIMEN / Unknown 07/31/2024 8:35 AM CDT 07/31/2024 11:03 AM CDT Geronimo Burleson MD LAB - POINT OF CARE ORDERABLES [facility] [address] [place] [address], [facility] [phone] * PT-INR [facility] (07/31/2024 7:37 AM CDT) Pathologist [facility] PT 14.6 12.1 - 14.8 Seconds 07/31/2024 8:13 AM [facility] INR 1.2 See Comment 07/31/2024 8:13 AM [facility] Comment:The suggested therap eutic range for standard coumadin (warfarin) therapy is an INR of 2.0-3.0. For high-risk patients (Mechanical Mitral Valve Prosthesis, etc.), the suggested prophylactic therapeutic range is an INR of 2.5-3.5. Blood BLOOD SPECIMEN / Unknown Venipuncture / Unknown 07/31/2024 7:37 AM CDT 07/31/2024 7:44 AM CDT Geronimo Burleson MD LAB - COAGULAT ION ORDERABLES [facility] [address] [place] [address], [facility] [phone] * PTT [facility] (07/31/2024 7:37 AM CDT) APTT 30.5 23.0 - 38.4 Seconds 07/31/2024 8:13 AM T [facility] Comment:Suggested therapeuti c range for full dose I.V. unfractionated heparin therapy for venous thromboembolism is 71 to 109 seconds. Blood BLOOD SPECIMEN / Unknown Venipuncture / Unknown 07/31/2024 7:37 AM CDT 07/31/2024 7:44 AM CDT Geronimo Burleson MD LAB - COAGULAT ION ORDERABLES Performing Organization Address City/[facility]/ZIP Co de Phone Number [address] [address], [facility] [phone] * MAGNESIUM BLOOD (07/31/2024 5:53 AM CDT) Magnesium 2.2 1.6 - 2.6 mg/dL 07/31/2024 6:37 AM [facility] Blood BLOOD SPECIMEN / Unknown Venipuncture / Unknown 07/31/2024 5:53 AM CDT 07/31/2024 6:08 AM CDT Geronimo Burleson MD LAB - CHEMISTR Y ORDERABLES [address] [address], [facility] [phone] * (ABNORMAL) RENAL FUNCTION PANEL (07/31/2024 5:53 AM CDT) BUN 50(H) 7 - 26 mg/dL 07/31/2024 6:37 AM [facility] Creatinine 9.33(H) 0.56 - 0.96 mg/dL 07/31/2024 6:37 AM [facility] Sodium 137 136 - 145 mmol/L 07/31/2024 6:37 AM [facility] Potassium 4.7(H) 3.5 - 4.5 mmol/L 07/31/2024 6:37 AM [facility] Chloride 102 98 - 107 mmol/L 07/31/2024 6:37 AM [facility] CO2 22 22 - 29 mmol/L 07/31/2024 6:37 AM [facility] Glucose 133(H) 70 - 115 mg/dL 07/31/2024 6:37 AM [facility] Albumin 1.6(L) 3.4 - 5.0 g/dL 07/31/2024 6:37 AM [facility] Calcium 7.5(L) 8.4 - 10.2 mg/dL 07/31/2024 6:37 AM [facility] Phosphorus 8.9(H) 2.9 - 5.1 mg/dL 07/31/2024 6:37 AM [facility] Anion Gap 13 6 - 16 07/31/2024 6:37 AM [facility] BUN/Creatinine Ratio 5(L) 7 - 23 07/31/2024 6:37 AM [facility] Osmolality Calculated 299(H) 275 - 295 mOsm/kg 07/31/2024 6:37 AM [facility] eGFR by CKD-EPI 5(L) >=90 mL/min/1.7 3 m2 07/31/2024 6:37 AM [facility] Blood BLOOD SPECIMEN / Unknown Venipuncture / Unknown 07/31/2024 5:53 AM CDT 07/31/2024 6:08 AM T Ralph Burt MD LAB - CHEMISTRY ORDE [facility] Organization Address City/State/[facility] Co de Phone Number [facility] [address] [place] [address], [facility] [phone] * (ABNORMAL) CBC W/O DIFFERENTIAL (07/31/2024 5:53 AM CDT) WBC 13.2(H) 4.0 - 10.7 x10E9/L 07/31/2024 6:26 AM [facility] RBC Count 2.98(L) 3.90 - 5.20 x10E12/L 07/31/2024 6:26 AM [facility] Hemoglobin 8.6(L) 11.9 - 15.8 g/dL 07/31/2024 6:26 AM [facility] Hematocrit 28.5(L) 34.8 - 46.1 % 07/31/2024 6:26 AM [facility] MCV 95.6 80.0 - 98.0 fL 07/31/2024 6:26 AM CDT [facility] MCH 28.9 26.7 - 33.6 pg 07/31/2024 6:26 AM CDT [facility] MCHC 30.2(L) 31.7 - 36.3 g/dL 07/31/2024 6:26 AM CDT [facility] RDW-CV 13.8 11.3 - 14.8 % 07/31/2024 6:26 AM CDT [facility] Platelet Count 575(H) 150 - 420 x10E9/L 07/31/2024 6:26 AM CDT [facility] MPV 8.9 7.8 - 11.4 fL 07/31/2024 6:26 AM CDT [facility] Blood BLOOD SPECIMEN / Unknown Venipuncture / Unknown 07/31/2024 5:53 AM CDT 07/31/2024 6:08 AM CDT Ralph Burt MD LAB - HEMATOLOGY ORD ERABLES [address] [address], [place] [phone] * VANCOMYCIN LEVEL RANDOM (07/31/2024 5:53 AM CDT) Vancomycin Random 17.1 Therapeutic Ranges not established for random specimens ug/mL 07/31/2024 6:51 AM CDT [facility] Blood BLOOD SPECIMEN / Unknown Venipuncture / Unknown 07/31/2024 5:53 AM CDT 07/31/2024 6:00 AM CDT Narrative [facility] - 07/31/2024 6:51 AM CDT See institution protocol. Geronimo Burleson MD LAB - CHEMISTR Y ORDERABLES [address] [address], [place] [phone] * (ABNORMAL) GLUCOSE - POINT OF CARE (07/30/2024 7:52 PM CDT) Glucose WB/POC 205(H) 70 - 115 mg/dL 07/30/2024 8:00 PM CDT [facility] Specimen Type Cap Fingerstick 2023 8:00 PM CDT [facility] Blood BLOOD SPECIMEN / Unknown 07/30/2024 7:52 PM CDT 07/30/2024 8:00 PM CDT Geronimo Burleson MD LAB - POINT OF CARE ORDERABLES [facility] [address] [place] [address], [facility] [phone] * XR Chest 1Vw Portable (07/30/2024 4:42 PM CDT) Anatomical Region Laterality Modality Chest Digital Radiogra phy 07/31/2024 7:07 AM CDT Narrative 07/31/2024 12:11 PM CDT PROCEDURE: ??XR CHEST 1VW PORTABLE, DATE/TIME OF EXAM: ??07/30/2024 4:42 PM, LOCATION ??[facility] INDICATION: N18.6: ESRD (end stage renal disease) ([facility]) ADDITIONAL CLINICAL INFORMATION: Ordering Provider Reason For Exam: ??Left IJ juan catheter placement COMPARISON: Chest x-ray dated 07/25/2024 TECHNIQUE: Frontal radiograph of the chest. FINDINGS/IMPRESSION: Devices/lines: *Left internal jugular approach catheter projects into the right atrium Redemonstration of stable bilateral interstitial and patchy airspace opacities. No pleural effusion or pneumothorax. The cardiomediastinal silhouette is stable. Report dictated by Dony Maciel MD, (energy operations vice president). I, Golden Rubin DO have personally reviewed and interpreted this examination/study. > Interpreting Provider: Golden Rubin DO on 07/31/2024 12:11 PM Procedure Note Golden Rubin DO - 07/31/2024 PROCEDURE: XR CHEST 1VW PORTABLE, DATE/TIME OF EXAM: 07/30/2024 4:42PM, LOCATION [facility] INDICATION: N18.6: ESRD (end stage renal disease) ([facility]) ADDITIONAL CLINICAL INFORMATION: Ordering Provider Reason For Exam: Left IJ juan catheter placement COMPARISON: Chest x-ray dated 07/25/2024 TECHNIQUE: Frontal radiograph of the chest. FINDINGS/IMPRESSION: Devices/lines: *Left internal jugular approach catheter projects into the right atrium Redemonstration of stable bilateral interstitial and patchy airspace opacities. No pleural effusion or pneumothorax. The cardiomediastinal silhouette is stable. Report dictated by Dony Maciel MD, MD (energy operations vice president). I, Golden Rubin DO have personally reviewed and interpreted this examination/study. > Interpreting Provider: Golden Rubin DO on 07/31/2024 12:11 PM Husam Palacios MD DIAGNOSTIC IMAGING O RDERABLES * IR Central Line Insert Tunnel (07/30/2024 3:32 PM CDT) Anatomical Region Laterality Modality Chest, Upper Extremity X-Ray Ang iography 07/30/2024 5:13 PM CDT Impressions 07/30/2024 5:19 PM CDT IMPRESSION: Successful Left internal jugular tunneled central venous Trialysis catheter placement. > Interpreting Provider: Husam Palacios MD on 07/30/2024 5:19 PM Narrative 07/30/2024 5:19 PM CDT PROCEDURE: ??IR CENTRAL LINE INSERT Non-TUNNEL DATE/TIME OF EXAM: ??07/30/2024 3:33 PM CLINICAL INFORMATION: None relevant/not provided if blank. Indication: R78.81: MRSA bacteremia B95.62: MRSA bacteremia N18.6: ESRD (end stage renal disease) ([facility]) Additional History: A non tunneled dialysis catheter was placed due to patient being bacteremic. COMPARISON: None. FLUOROSCOPY DOSE: mGy Reference air kerma (ka,r). Correctional Supervisor Lieutenant: Husam Palacios MD MEDICATIONS: None. ?? Contrast: None Complications: None immediate Findings and Technique: Informed consent was obtained prior to start of the procedure. A time-out was performed. The skin of the Left neck and chest was prepared with chlorhexidine and sterile drapes were applied. Limited ultrasound of the (Left) lower neck demonstrated a patent and compressible internal jugular vein. The skin and subcutaneous tissue was anesthetized with infiltration of lidocaine. Under real time ultrasound guidance, an 18 g needle was inserted into the (Left) internal jugular vein. The guidewire was inserted through the needle. There was no arrhythmia during guidewire placement. After serial dilatations over the guidewire, the catheter (13F Trialysis catheter was advanced over the wire and the guidewire was removed.. All lumens were aspirated and flushed and showed no resistance. ??Using 3-0 Nylon sutures, the catheter was sutured in place. A CHG dressing was applied over the catheter insertion site. I was present for the entire procedure Procedure Note Husam Palacios MD - 07/30/2024 PROCEDURE: IR CENTRAL LINE INSERT Non-TUNNEL DATE/TIME OF EXAM: 07/30/2024 3:33 PM CLINICAL INFORMATION: None relevant/not provided if blank. Indication: R78.81: MRSA bacteremia B95.62: MRSA bacteremia N18.6: ESRD (end stage renal disease) ([facility]) Additional History: A non tunneled dialysis catheter was placed due to patient being bacteremic. COMPARISON: None. FLUOROSCOPY DOSE: mGy Reference air kerma (ka,r). Correctional Supervisor Lieutenant: Husam Palacios MD MEDICATIONS: None. Contrast: None Complications: None immediate Findings and Technique: Informed consent was obtained prior to start of the procedure. Atime-out was performed. The skin of the Left neck and chest was prepared with chlorhexidine and sterile drapes were applied. Limited ultrasound of the (Left) lower neck demonstrated a patent and compressible internaljugular vein. The skin and subcutaneous tissue was anesthetized withinfiltration of lidocaine. Under real time ultrasound guidance, an 18 g needle was inserted into the (Left) internal jugular vein. The guidewire wasinserted through the needle. There was no arrhythmia during guidewire placement. After serial dilatations over the guidewire, the catheter (13F Trialysis catheter was advanced over the wire and the guidewire was removed.. All lumens were aspirated and flushed and showed no resistance. Using 3-0 Nylon sutures, the catheter was sutured in place. A CHG dressing was applied over the catheter insertion site. I was present for the entire procedure IMPRESSION: Successful Left internal jugular tunneled central venous Trialysiscatheter placement. > Interpreting Provider: Husam Palacios MD on 07/30/2024 5:19 PM Geronimo Burleson MD IR ORDERABLES * ECHO MATT COMPLETE (07/30/2024 2:05 PM [...] 1990 Gender: ? Female Accession #: ? [id number] Ht: ? 67 in Wt: ? 250 lb BSA: ? 2.37 m2 HR: ? 88 bpm BP: ? 130 / ? 77 mmHg Exam Date: ? 07/30/2024 3:43 PM Patient Status: ? I/P Study Site: ? [facility] Primary Location: ? [facility] EStudy Info Technical Quality: ? Good Exam Type: ? ECHO MATT COMPLETE Indications ?A41.02 - Sepsis due to methicillin resistant Staphylococcus aureus (MRSA), unspecified whether acute organ dysfunction present (HCC) * A complete transesophageal echo was performed using 2D, color Doppler, and spectral Doppler. Roving Court Reporter: ? Levi Marlow Complications ??* There were [...] in satisfactory condition. Probe passed by the development technologist without difficulty. Left Ventricle ??Left ventricular systolic [...] 3:43 PM Patient Status: I/P Study Site: [facility] Primary Location: [facility] EStudy Info Technical Quality: Good Exam Type: ECHO MATT COMPLETE Indications A41.02 - Sepsis due to methicillin resistant Staphylococcus aureus(MRSA), unspecified whether acute organ dysfunction present (HCC) * A complete transesophageal echo was performed using 2D, color Doppler,and spectral Doppler. Roving Court Reporter: Levi Marlow Complications * There were no [...] AM Geronimo Burleson MD ECHO CUPID * (ABNORMAL) GLUCOSE - POINT OF CARE (07/30/2024 12:38 PM CDT) Glucose WB/POC 173(H) 70 - 115 mg/dL 07/31/2024 7:51 AM CDT [facility] Specimen Type Cap Fingerstick 2023 7:51 AM CDT [facility] Blood BLOOD SPECIMEN / Unknown 07/30/2024 12:38 PM CDT 07/31/2024 7:51 AM CDT Geronimo Burleson MD LAB - POINT OF CARE ORDERABLES [facility] [address] [place] [address], [facility] [phone] * CULTURE BLOOD (07/30/2024 12:13 PM CDT) Culture No growth day 5 CHARLES 08/04/2024 4:[address] [facility] Blood PERIPHERAL BLOOD / Unknown Lab Venipuncture / Unknown 07/30/2024 12:13 PM CDT 07/30/2024 12:35 PM CDT Geronimo Burleson MD LAB - MICROBIO LOGY ORDERABLES Performing Organization Address City/[facility]/ZIP Co de Phone Number [facility] [address] [place] [address], [facility] [phone] * CULTURE BLOOD (07/30/2024 12:03 PM CDT) Culture No growth day 5 CHARLES 08/04/2024 4:[address] [facility] Blood PERIPHERAL BLOOD / Unknown Lab Venipuncture / Unknown 07/30/2024 12:03 PM CDT 07/30/2024 12:35 PM CDT Geronimo Burleson MD LAB - MICROBIO LOGY ORDERABLES Performing Organization Address [facility] de Phone Number [facility] [address] [place] [address], [facility] [phone] * MRI Cervical Spine Wwo Cont (07/30/2024 9:22 AM CDT) Anatomical Region Laterality Modality Spine Magnetic Resonan ce 07/30/2024 10:5 2 AM CDT Impressions 07/30/2024 11:10 AM CDT IMPRESSION: 1. Normal MRI of the cervical spine. 2. An incompletely imaged T2/STIR hyperintense lesion in the apex of the left thorax/superior mediastinum measuring approximately 2.3 x 4.0 cm on sagittal T2 and STIR sequences, corresponds to a cluster of mildly enlarged lymph nodes seen on the chest CT dated 07/27/2024. > Interpreting Provider: Leeanna Mathew MD on 07/30/2024 11:10 AM Narrative 07/30/2024 11:10 AM CDT PROCEDURE: ??MRI CERVICAL SPINE WWO CONT, DATE/TIME OF EXAM: ??07/30/2024 9:22 AM, LOCATION ??[facility] INDICATION: R78.81: MRSA bacteremia B95.62: MRSA bacteremia ADDITIONAL CLINICAL INFORMATION: Ordering Provider Reason For Exam: ??evaluation of septic arthritis Technologist Note: Additional: EXAMINATION: Magnetic resonance imaging (MRI) of the cervical spine without and with contrast TECHNIQUE: MRI of the cervical spine was performed prior to and following the uneventful administration of 20 mL Dotarem intravenous contrast according to standard protocol. FINDINGS: There is incompletely imaged T2/STIR hyperintense lesion in the apex of the left thorax/superior mediastinum measuring approximately 2.3 x 4.0 cm on sagittal T2 and STIR sequences, corresponding to a cluster of mildly enlarged lymph nodes seen on the chest CT dated 07/27/2024. The alignment is normal. Vertebral bodies are normal in height without evidence of compression fractures. The visible bone marrow is normal. The craniocervical junction is normal. The spinal cord appears normal. No abnormal enhancement is identified. The intervertebral discs are normal in height. No soft tissue abnormality is identified. Normal flow voids are identified in the vertebral arteries. C2-3: There is no disc bulge. There is no central canal stenosis. There is no facet osteoarthritis. There is no uncovertebral joint osteoarthritis. There is no neural foraminal stenosis. C3-4: There is no disc bulge. There is no central canal stenosis. There is no facet osteoarthritis. There is no uncovertebral joint osteoarthritis. There is no neural foraminal stenosis. C4-5: There is no disc bulge. There is no central canal stenosis. There is no facet osteoarthritis. There is no uncovertebral joint osteoarthritis. There is no neural foraminal stenosis. C5-6: There is no disc bulge. There is no central canal stenosis. There is no facet osteoarthritis. There is no uncovertebral joint osteoarthritis. There is no neural foraminal stenosis. C6-7: There is no disc bulge. There is no central canal stenosis. There is no facet osteoarthritis. There is no uncovertebral joint osteoarthritis. There is no neural foraminal stenosis. C7-T1: There is no disc bulge. There is no central canal stenosis. There is no facet osteoarthritis. There is no uncovertebral joint osteoarthritis. There is no neural foraminal stenosis. Procedure Note Leeanna Mathew MD - 07/30/2024 PROCEDURE: MRI CERVICAL SPINE WWO CONT, DATE/TIME OF EXAM: 49:22 AM, LOCATION [facility] INDICATION: R78.81: MRSA bacteremia B95.62: MRSA bacteremia ADDITIONAL CLINICAL INFORMATION: Ordering Provider Reason For Exam: evaluation of septic arthritis Technologist Note: Additional: EXAMINATION: Magnetic resonance imaging (MRI) of the cervical spinewithout and with contrast TECHNIQUE: MRI of the cervical spine was performed prior to andfollowing the uneventful administration of 20 mL Dotarem intravenous contrast according to standard protocol. FINDINGS: There is incompletely imaged T2/STIR hyperintense lesion in the apex ofthe left thorax/superior mediastinum measuring approximately 2.3 x 4.0 cm on sagittal T2 and STIR sequences, corresponding to a cluster of mildly enlarged lymph nodes seen on the chest CT dated 07/27/2024. The alignment is normal. Vertebral bodies are normal in height without evidence of compression fractures. The visible bone marrow is normal.The craniocervical junction is normal. The spinal cord appears normal. No abnormal enhancement is identified. The intervertebral discs are normalin height. No soft tissue abnormality is identified. Normal flow voids areidentified in the vertebral arteries. C2-3: There is no disc bulge. There is no central canal stenosis. Thereis no facet osteoarthritis. There is no uncovertebral joint osteoarthritis. There is no neural foraminal stenosis. C3-4: There is no disc bulge. There is no central canal stenosis. Thereis no facet osteoarthritis. There is no uncovertebral joint osteoarthritis. There is no neural foraminal stenosis. C4-5: There is no disc bulge. There is no central canal stenosis. Thereis no facet osteoarthritis. There is no uncovertebral joint osteoarthritis. There is no neural foraminal stenosis. C5-6: There is no disc bulge. There is no central canal stenosis. Thereis no facet osteoarthritis. There is no uncovertebral joint osteoarthritis. There is no neural foraminal stenosis. C6-7: There is no disc bulge. There is no central canal stenosis. Thereis no facet osteoarthritis. There is no uncovertebral joint osteoarthritis. There is no neural foraminal stenosis. C7-T1: There is no disc bulge. There is no central canal stenosis. Thereis no facet osteoarthritis. There is no uncovertebral joint osteoarthritis. There is no neural foraminal stenosis. IMPRESSION: 1. Normal MRI of the cervical spine. 2. An incompletely imaged T2/STIR hyperintense lesion in the apex of the left thorax/superior mediastinum measuring approximately 2.3 x 4.0 cm on sagittal T2 and STIR sequences, corresponds to a cluster of mildlyenlarged lymph nodes seen on the chest CT dated 07/27/2024. > Interpreting Provider: Leeanna Mathew MD on 07/30/2024 11:10 AM Geronimo Burleson MD MR ORDERABLES * VAS Arterial Multilevel Le (07/30/2024 8:06 AM CDT) Anatomical Region Laterality Modality Ultrasound 07/30/2024 7:21 AM CDT Narrative Procedure Note Graeme Rodgers MD - 07/30/2024 Geronimo Burleson MD VASCULAR LAB O RDERABLES * VAS Right Venous Duplex Ue (07/30/2024 8:06 AM CDT) Anatomical Region Laterality Modality Upper Extremity Ultrasound 07/30/2024 7:37 AM CDT Narrative Procedure Note Graeme Rodgers MD - 07/30/2024 Geronimo Burleson MD VASCULAR LAB O RDERABLES * MAGNESIUM BLOOD (07/30/2024 6:44 AM CDT) Magnesium 2.2 1.6 - 2.6 mg/dL 07/30/2024 7:40 AM CDT [facility] Blood BLOOD SPECIMEN / Unknown Lab Venipuncture / Unknown 07/30/2024 6:44 AM CDT 07/30/2024 7:10 AM CDT Geronimo Burleson MD LAB - CHEMISTR Y ORDERABLES [facility] [address] [place] [address], [facility] [phone] * (ABNORMAL) RENAL FUNCTION PANEL (07/30/2024 6:[address] [facility]) BUN 44(H) 7 - 26 mg/dL 07/30/2024 7:40 AM [facility] Creatinine 9.32(H) 0.56 - 0.96 mg/dL 07/30/2024 7:40 AM [facility] Sodium 135(L) 136 - 145 mmol/L 07/30/2024 7:40 AM [facility] Potassium 4.7(H) 3.5 - 4.5 mmol/L 07/30/2024 7:40 AM [facility] Chloride 104 98 - 107 mmol/L 07/30/2024 7:40 AM [facility] CO2 21(L) 22 - 29 mmol/L 07/30/2024 7:40 AM [facility] Glucose 167(H) 70 - 115 mg/dL 07/30/2024 7:40 AM [facility] Albumin 1.6(L) 3.4 - 5.0 g/dL 07/30/2024 7:40 AM [facility] Calcium 7.7(L) 8.4 - 10.2 mg/dL 07/30/2024 7:40 AM [facility] Phosphorus 9.0(H) 2.9 - 5.1 mg/dL 07/30/2024 7:40 AM [facility] Anion Gap 10 6 - 16 07/30/2024 7:40 AM [facility] BUN/Creatinine Ratio 5(L) 7 - 23 07/30/2024 7:40 AM [facility] Osmolality Calculated 295 275 - 295 mOsm/kg 07/30/2024 7:40 AM [facility] eGFR by CKD-EPI 5(L) >=90 mL/min/1.7 3 m2 07/30/2024 7:40 AM [facility] Blood BLOOD SPECIMEN / Unknown Lab Venipuncture / Unknown 07/30/2024 6:44 AM CDT 07/30/2024 7:10 AM T Ralph Burt MD LAB - CHEMISTRY ORDE RABLES [facility] [address] [place] [address], [facility] [phone] * (ABNORMAL) CBC W/O DIFFERENTIAL (07/30/2024 6:44 AM CDT) WBC 9.6 4.0 - 10.7 x10E9/L 07/30/2024 7:27 AM [facility] RBC Count 3.13(L) 3.90 - 5.20 x10E12/L 07/30/2024 7:27 AM [facility] Hemoglobin 9.0(L) 11.9 - 15.8 g/dL 07/30/2024 7:27 AM [facility] Hematocrit 29.5(L) 34.8 - 46.1 % 07/30/2024 7:27 AM [facility] MCV 94.2 80.0 - 98.0 fL 07/30/2024 7:27 AM [facility] MCH 28.8 26.7 - 33.6 pg 07/30/2024 7:27 AM [facility] MCHC 30.5(L) 31.7 - 36.3 g/dL 07/30/2024 7:27 AM [facility] RDW-CV 13.7 11.3 - 14.8 % 07/30/2024 7:27 AM [facility] Platelet Count 471(H) 150 - 420 x10E9/L 07/30/2024 7:27 AM [facility] MPV 9.1 7.8 - 11.4 fL 07/30/2024 7:27 AM [facility] Blood BLOOD SPECIMEN / Unknown Lab Venipuncture / Unknown 07/30/2024 6:44 AM CDT 07/30/2024 7:10 AM CDT Ralph Burt MD LAB - HEMATOLOGY ORD ERABLES [facility] [address] [place] [address], [place] [phone] * (ABNORMAL) GLUCOSE - POINT OF CARE (07/29/2024 5:01 PM CDT) Glucose WB/POC 137(H) 70 - 115 mg/dL 07/30/2024 8:37 AM CDT [facility] Specimen Type Cap Fingerstick 2023 8:37 AM CDT [facility] Blood BLOOD SPECIMEN / Unknown 07/29/2024 5:01 PM CDT 07/30/2024 8:37 AM CDT Geronimo Burleson MD LAB - POINT OF CARE ORDERABLES [facility] [address] [place] [address], [facility] [phone] * CULTURE BLOOD (07/29/2024 4:36 PM CDT) Pathologist [facility] Culture No growth day 5 CHARLES 08/03/2024 8:[address] [facility] Blood PERIPHERAL BLOOD / Unknown Lab Venipuncture / Unknown 07/29/2024 4:36 PM CDT 07/29/2024 4:39 PM CDT Geronimo Burleson MD LAB - MICROBIO LOGY ORDERABLES [facility] [address] [place] [address], [facility] [phone] * (ABNORMAL) CULTURE BLOOD (07/29/2024 11:17 AM CDT) Culture Growth of Staphylococcus aureus methicillin-resi stant (MRSA)(AA) 08/03/2024 4:[address] [facility] Comment:Staphylococcus aureu s methicillin-resistant (MRSA) detected by penicillin binding protein immunoassay. Contact precautions required. Conventional antibiotic susceptibility testing to follow. Gram Stain Gram-positive cocci in clusters(AA) 08/03/2024 4:[address] [facility] Blood PERIPHERAL BLOOD / Unknown Lab Venipuncture / Unknown 07/29/2024 11:17 AM CDT 07/29/2024 11:[address] [facility] - 08/03/2024 4:01 PM CDT Methicillin-resistant Staphylococci (MRSA) are resistant to all currently available beta-lactam antibiotics with the exception of the newer cephalosporins with anti-MRSA activity. Contact precautions required. Positive at 19 hours and 18 minutes Infectious disease consultation strongly recommended, where available. Refer to previously reported susceptibility testing, specimen number:[id number] Geronimo Burleson MD LAB - MICROBIO LOGY ORDERABLES [facility] [address] [place] [address], [facility] [phone] * (ABNORMAL) GLUCOSE - POINT OF CARE (07/29/2024 11:13 AM CDT) Glucose WB/POC 239(H) 70 - 115 mg/dL 07/30/2024 8:37 AM CDT [facility] Specimen Type Cap Fingerstick 2023 8:37 AM CDT [facility] Blood BLOOD SPECIMEN / Unknown 07/29/2024 11:13 AM CDT 07/30/2024 8:36 AM CDT Geronimo Burleson MD LAB - POINT OF CARE ORDERABLES [address] [address], [facility] [phone] * (ABNORMAL) GLUCOSE - POINT OF CARE (07/29/2024 8:21 AM CDT) Glucose WB/POC 139(H) 70 - 115 mg/dL 07/30/2024 8:37 AM CDT [facility] Specimen Type Cap Fingerstick 2023 8:37 AM CDT [facility] Blood BLOOD SPECIMEN / Unknown 07/29/2024 8:21 AM CDT 07/30/2024 8:36 AM CDT Geronimo Burleson MD LAB - POINT OF CARE ORDERABLES [facility] [address] [place] [address], [facility] [phone] * (ABNORMAL) RENAL FUNCTION PANEL (07/29/2024 6:[address] [facility]) BUN 35(H) 7 - 26 mg/dL 07/29/2024 7:39 AM [facility] Creatinine 8.24(H) 0.56 - 0.96 mg/dL 07/29/2024 7:39 AM [facility] Sodium 137 136 - 145 mmol/L 07/29/2024 7:39 AM [facility] Potassium 4.5 3.5 - 4.5 mmol/L 07/29/2024 7:39 AM [facility] Chloride 100 98 - 107 mmol/L 07/29/2024 7:39 AM [facility] CO2 23 22 - 29 mmol/L 07/29/2024 7:39 AM [facility] Glucose 127(H) 70 - 115 mg/dL 07/29/2024 7:39 AM [facility] Albumin 1.7(L) 3.4 - 5.0 g/dL 07/29/2024 7:39 AM [facility] Calcium 8.2(L) 8.4 - 10.2 mg/dL 07/29/2024 7:39 AM [facility] Phosphorus 8.0(H) 2.9 - 5.1 mg/dL 07/29/2024 7:39 AM [facility] Anion Gap 14 6 - 16 07/29/2024 7:39 AM [facility] BUN/Creatinine Ratio 4(L) 7 - 23 07/29/2024 7:39 AM [facility] Osmolality Calculated 294 275 - 295 mOsm/kg 07/29/2024 7:39 AM [facility] eGFR by CKD-EPI 6(L) >=90 mL/min/1.7 3 m2 07/29/2024 7:39 AM [facility] Blood BLOOD SPECIMEN / Unknown Venipuncture / Unknown 07/29/2024 6:24 AM CDT 07/29/2024 6:34 AM CDT Ralph Burt MD LAB - CHEMISTRY ORDE WADE [facility] Organization Address City/State/ZIP Co de Phone Number [facility] [address] [place] [address], [facility] [phone] * (ABNORMAL) CBC W/O DIFFERENTIAL (07/29/2024 6:24 AM CDT) WBC 10.4 4.0 - 10.7 x10E9/L 07/29/2024 6:41 AM [facility] RBC Count 3.22(L) 3.90 - 5.20 x10E12/L 07/29/2024 6:41 AM [facility] Hemoglobin 9.4(L) 11.9 - 15.8 g/dL 07/29/2024 6:41 AM [facility] Hematocrit 30.1(L) 34.8 - 46.1 % 07/29/2024 6:41 AM [facility] MCV 93.5 80.0 - 98.0 fL 07/29/2024 6:41 AM [facility] MCH 29.2 26.7 - 33.6 pg 07/29/2024 6:41 AM [facility] MCHC 31.2(L) 31.7 - 36.3 g/dL 07/29/2024 6:41 AM [facility] RDW-CV 13.7 11.3 - 14.8 % 07/29/2024 6:41 AM [facility] Platelet Count 467(H) 150 - 420 x10E9/L 07/29/2024 6:41 AM [facility] MPV 9.1 7.8 - 11.4 fL 07/29/2024 6:41 AM [facility] Blood BLOOD SPECIMEN / Unknown Venipuncture / Unknown 07/29/2024 6:24 AM CDT 07/29/2024 6:34 AM CDT Ralph Burt MD LAB - HEMATOLOGY ORD ERABLES [facility] [address] [place] [address], [place] [phone] * VANCOMYCIN LEVEL RANDOM (07/29/2024 6:24 AM CDT) Vancomycin Random 17.0 Therapeutic Ranges not established for random specimens ug/mL 07/29/2024 7:42 AM CDT [facility] Blood BLOOD SPECIMEN / Unknown Venipuncture / Unknown 07/29/2024 6:24 AM CDT 07/29/2024 6:32 AM CDT Narrative [facility] - 07/29/2024 7:42 AM CDT See institution protocol. Ralph Burt MD LAB - CHEMISTRY ORDE WADE Performing Organization Address City/[facility]/ZIP Co de Phone Number [facility] [address] [place] [address], [place] [phone] * GLUCOSE - POINT OF CARE (07/29/2024 4:39 AM CDT) Glucose WB/POC 103 70 - 115 mg/dL 07/29/2024 4:44 AM CDT [facility] Specimen Type Cap Fingerstick 2023 4:44 AM CDT [facility] Blood BLOOD SPECIMEN / Unknown 07/29/2024 4:39 AM CDT 07/29/2024 4:44 AM CDT Geronimo Burleson MD LAB - POINT OF CARE ORDERABLES [facility] [address] [place] [address], [place] [phone] * (ABNORMAL) GLUCOSE - POINT OF CARE (07/28/2024 8:58 PM CDT) Glucose WB/POC 189(H) 70 - 115 mg/dL 07/29/2024 8:17 AM CDT [facility] Specimen Type Cap Fingerstick 2023 8:17 AM CDT [facility] Blood BLOOD SPECIMEN / Unknown 07/28/2024 8:58 PM CDT 07/29/2024 8:17 AM CDT Geronimo Burleson MD LAB - POINT OF CARE ORDERABLES [facility] [address] [place] [address], [place] [phone] * (ABNORMAL) CULTURE BLOOD (07/28/2024 8:48 PM CDT) Culture Growth of Staphylococcus aureus methicillin-resi stant (MRSA)(AA) CHARLES 08/04/2024 3:[address] [facility] Comment:Staphylococcus aureu s methicillin-resistant (MRSA) detected by penicillin binding protein immunoassay. Contact precautions required. Conventional antibiotic susceptibility testing to follow. Gram Stain Gram-positive cocci in clusters(AA) 08/04/2024 3:[address] [facility] Blood PERIPHERAL BLOOD / Unknown Lab Venipuncture / Unknown 07/28/2024 8:48 PM CDT 07/28/2024 8:[address] [facility] - 08/04/2024 3:38 PM CDT Methicillin-resistant Staphylococci (MRSA) are resistant to all currently available beta-lactam antibiotics with the exception of the newer cephalosporins with anti-MRSA activity. Contact precautions required. Positive at 26 Hours 12 Minutes Infectious disease consultation strongly recommended, where available. Organism Antibiotic Method Susceptibility Staphylococcus aureus methic illin-resistant (MRSA) Oxacillin CHARLES >=4 ug/mL: Resistant Staphylococcus aureus methic illin-resistant (MRSA) Vancomycin CHARLES 1 ug/mL: Susceptible Geronimo Burleson MD LAB - MICROBIO LOGY ORDERABLES [facility] [address] [place] [address], [facility] [phone] * (ABNORMAL) CULTURE BLOOD (07/28/2024 5:53 PM CDT) Culture Growth of Staphylococcus aureus methicillin-resi stant (MRSA)(AA) CHARLES 08/03/2024 4:[address] [facility] Comment:Staphylococcus aureu s methicillin-resistant (MRSA) detected by penicillin binding protein immunoassay. Contact precautions required. Conventional antibiotic susceptibility testing to follow. Gram Stain Gram-positive cocci in clusters(AA) 08/03/2024 4:[address] [facility] Blood PERIPHERAL BLOOD / Unknown Lab Venipuncture / Unknown 07/28/2024 5:53 PM CDT 07/28/2024 5:[address] [facility] - 08/03/2024 4:07 PM CDT Methicillin-resistant Staphylococci (MRSA) are resistant to all currently available beta-lactam antibiotics with the exception of the newer cephalosporins with anti-MRSA activity. Contact precautions required. Refer to previously reported susceptibility testing, specimen number: [id number] Positive at 41 Hours 58 Minutes Infectious disease consultation strongly recommended, where available. Geronimo Burleson MD LAB - MICROBIO LOGY ORDERABLES [facility] [address] [place] [address], [facility] [phone] * (ABNORMAL) GLUCOSE - POINT OF CARE (07/28/2024 5:25 PM CDT) [facility] Glucose WB/POC 212(H) 70 - 115 mg/dL 07/29/2024 1:40 AM CDT [facility] Specimen Type Cap Fingerstick 2023 1:40 AM CDT [facility] Blood BLOOD SPECIMEN / Unknown 07/28/2024 5:25 PM CDT 07/29/2024 1:40 AM CDT Geronimo Burleson MD LAB - POINT OF CARE ORDERABLES [facility] [address] [place] [address], [place] [phone] * IR Central Line Removal (07/28/2024 5:07 PM CDT) Anatomical Region Laterality Modality Other Narrative 07/28/2024 7:17 PM CDT Nicolás Truong DO ? 07/28/2024 ??7:18 PM [facility] Department of Nephrology Procedure Note Procedure: Permcath [...] procedure well. Nicolás Truong DO Nephrology Fellow [facility] Geronimo Burleson MD IR ORDERABLES * CT [...] PM Geronimo Burleson MD CT ORDERABLES * (ABNORMAL) GLUCOSE - POINT OF CARE (07/28/2024 12:02 PM CDT) Glucose WB/POC 186(H) 70 - 115 mg/dL 07/28/2024 12:07 PM CDT [facility] Specimen Type Cap Fingerstick 2023 12:07 PM CDT [facility] Blood BLOOD SPECIMEN / Unknown 07/28/2024 12:02 PM CDT 07/28/2024 12:07 PM CDT Geronimo Burleson MD LAB - POINT OF CARE ORDERABLES [facility] [address] [address], [facility] [phone] * ECHO COMPLETE W CONTRAST (07/28/2024 8:44 AM CDT) IVSd 2D 1.01 cm SSM CV FUJ [...] transesophageal echocardiogram. Patient Info Name: ? Leeroy Valencia Parker Age: ? 33 years : ? 1990 Gender: ? Female Accession #: ? [id number] Ht: ? 67 in Wt: ? 250 lb BSA: ? 2.37 m2 HR: ? 81 bpm BP: ? 144 / ? 77 mmHg Heart Rhythm: ? Sinus Rhythm Exam Date: ? 07/28/2024 7:15 AM Patient Status: ? I/P Study Site: ? [facility] Primary Location: ? [facility] EStudy Info Technical Quality: ? Fair Exam Type: [...] Geronimo Burleson Attending Physician: ? Geronimo Burleson Pt Sitter: ? Nitesh Donis Left Ventricle ??The left [...] Volume Index (BP MOD) ?36 ml/m2 ? Report Signatures Finalized by Ruth Wilcox ?? [...] 7:15 AM Patient Status: I/P Study Site: [facility] Primary Location: [facility] EStudy Info Technical Quality: Fair Exam Type: ECHO [...] Provider: Geronimo Burleson Attending Physician: Geronimo Burleson Pt Sitter: Nitesh Donis Left Ventricle The left ventricle [...] (2D) 33 % 27-45 LV EF (2D Teichjennifer) 62 % 54-74 LV Diastolic Volume (4C [...] LA Volume Index (BP MOD) 36 ml/m2 Report Signatures Finalized by Ruth Wilcox MD on 07/28/2024 09:40 AM Geronimo Burleson MD ECHO CUPID * (ABNORMAL) GLUCOSE - POINT OF CARE (07/28/2024 8:13 AM CDT) Glucose WB/POC 198(H) 70 - 115 mg/dL 07/28/2024 8:22 AM T [facility] Specimen Type Cap Fingerstick 2023 8:22 AM [facility] Blood BLOOD SPECIMEN / Unknown 07/28/2024 8:13 AM CDT 07/28/2024 8:22 AM T Geronimo Burleson MD LAB - POINT OF CARE ORDERABLES [facility] [address] [place] [address], [facility] [phone] * (ABNORMAL) RENAL FUNCTION PANEL (07/28/2024 7:02 AM CDT) BUN 29(H) 7 - 26 mg/dL 07/28/2024 7:56 AM [facility] Creatinine 6.64(H) 0.56 - 0.96 mg/dL 07/28/2024 7:56 AM [facility] Sodium 136 136 - 145 mmol/L 07/28/2024 7:56 AM [facility] Potassium 4.2 3.5 - 4.5 mmol/L 07/28/2024 7:56 AM [facility] Chloride 102 98 - 107 mmol/L 07/28/2024 7:56 AM [facility] CO2 24 22 - 29 mmol/L 07/28/2024 7:56 AM [facility] Glucose 190(H) 70 - 115 mg/dL 07/28/2024 7:56 AM [facility] Albumin 1.7(L) 3.4 - 5.0 g/dL 07/28/2024 7:56 AM [facility] Calcium 7.6(L) 8.4 - 10.2 mg/dL 07/28/2024 7:56 AM [facility] Phosphorus 6.7(H) 2.9 - 5.1 mg/dL 07/28/2024 7:56 AM [facility] Anion Gap 10 6 - 16 07/28/2024 7:56 AM [facility] BUN/Creatinine Ratio 4(L) 7 - 23 07/28/2024 7:56 AM [facility] Osmolality Calculated 293 275 - 295 mOsm/kg 07/28/2024 7:56 AM [facility] eGFR by CKD-EPI 8(L) >=90 mL/min/1.7 3 m2 07/28/2024 7:56 AM [facility] Blood BLOOD SPECIMEN / Unknown Venipuncture / Unknown 07/28/2024 7:02 AM CDT 07/28/2024 7:08 AM CDT Ralph Burt MD LAB - CHEMISTRY DIVINA OLVERA [facility] Organization Address City/State/ZIP Co de Phone Number [facility] [address] [place] [address], [facility] [phone] * (ABNORMAL) CBC W/O DIFFERENTIAL (07/28/2024 7:02 AM CDT) WBC 11.0(H) 4.0 - 10.7 x10E9/L 07/28/2024 7:15 AM [facility] RBC Count 3.24(L) 3.90 - 5.20 x10E12/L 07/28/2024 7:15 AM [facility] Hemoglobin 9.4(L) 11.9 - 15.8 g/dL 07/28/2024 7:15 AM [facility] Hematocrit 29.5(L) 34.8 - 46.1 % 07/28/2024 7:15 AM [facility] MCV 91.0 80.0 - 98.0 fL 07/28/2024 7:15 AM [facility] MCH 29.0 26.7 - 33.6 pg 07/28/2024 7:15 AM [facility] MCHC 31.9 31.7 - 36.3 g/dL 07/28/2024 7:15 AM [facility] RDW-CV 13.5 11.3 - 14.8 % 07/28/2024 7:15 AM [facility] Platelet Count 388 150 - 420 x10E9/L 07/28/2024 7:15 AM [facility] MPV 9.4 7.8 - 11.4 fL 07/28/2024 7:15 AM [facility] Blood BLOOD SPECIMEN / Unknown Venipuncture / Unknown 07/28/2024 7:02 AM CDT 07/28/2024 7:08 AM CDT Ralph Burt MD LAB - HEMATOLOGY ORD ERABLES Performing Organization Address City/[facility]/ZIP Co de Phone Number [address] [address], [facility] [phone] * (ABNORMAL) GLUCOSE - POINT OF CARE (07/28/2024 12:36 AM CDT) Glucose WB/POC 164(H) 70 - 115 mg/dL 07/28/2024 12:36 AM CDT [facility] Specimen Type Cap Fingerstick 2023 12:36 AM CDT [facility] Blood BLOOD SPECIMEN / Unknown 07/28/2024 12:36 AM CDT 07/28/2024 12:36 AM CDT Geronimo Burleson MD LAB - POINT OF CARE ORDERABLES Performing Organization Address [facility] Co de Phone Number [address] [address], [facility] [phone] * CT Chest Abdomen Pelvis W Cont [...] in the lung bases. > Dictated by Setve Haney, DO ??(energy operations vice president). I, Arthur Avery MD have personally reviewed and interpreted this examination/study. > Interpreting Provider: Arthur Avery MD on 07/27/2024 5:19 PM Narrative 07/27/2024 5:19 PM CDT PROCEDURE: ??CT CHEST ABDOMEN PELVIS W CONT, DATE/TIME OF EXAM: ??07/27/2024 1:43 PM, LOCATION ??[facility] INDICATION: A41.9: Sepsis, due to unspecified [...] CONT, DATE/TIME OF EXAM:07/27/2024 1:43 PM, LOCATION [facility] INDICATION: A41.9: Sepsis, due to unspecified [...] bases. > Dictated by Steve Haney DO (energy operations vice president). I, Arthur Avery MD have personally reviewed and interpreted this examination/study. > Interpreting Provider: Arthur Avery MD on 07/27/2024 5:19 [address] MD CT ORDERABLES * (ABNORMAL) GLUCOSE - POINT OF CARE (07/27/2024 12:00 PM CDT) Glucose WB/POC 243(H) 70 - 115 mg/dL 07/27/2024 12:05 PM CDT [facility] Specimen Type Cap Fingerstick 2023 12:05 PM CDT [facility] Blood BLOOD SPECIMEN / Unknown 07/27/2024 12:00 PM CDT 07/27/2024 12:05 PM CDT Geronimo Burleson MD LAB - POINT OF CARE ORDERABLES [facility] [address] [place] [address], [facility] [phone] * (ABNORMAL) GLUCOSE - POINT OF CARE (07/27/2024 10:41 AM CDT) Glucose WB/POC 223(H) 70 - 115 mg/dL 07/27/2024 10:42 AM CDT [facility] Specimen Type Cap Fingerstick 2023 10:42 AM CDT [facility] Blood BLOOD SPECIMEN / Unknown 07/27/2024 10:41 AM CDT 07/27/2024 10:42 AM CDT Geronimo Burleson MD LAB - POINT OF CARE ORDERABLES [facility] [address] [place] [address], [place] [phone] * (ABNORMAL) CULTURE WOUND+GRAM STAIN (07/27/2024 9:11 AM CDT) Culture Rare Staphylococcus aureus methicillin-resista nt (MRSA)(A) CHARLES 07/30/2024 4:[address] [facility] Comment:Staphylococcus aureu s methicillin-resistant (MRSA) detected by penicillin binding protein immunoassay. Contact precautions required. Conventional antibiotic susceptibility testing to follow. Gram Stain Light Polymorphonuclear cells 07/30/2024 4:[address] [facility] Gram Stain No organisms seen 024 4:[address] [facility] Microbiology ENTIRE SHOULDER REGION / Unknown Collection / Unknown 07/27/2024 9:11 AM CDT 07/27/2024 10:[address] [facility] - 07/30/2024 4:29 AM CDT Methicillin-resistant [...] Chapman MD LAB - MICROBIOLOGY O RDERABLES [facility] [address] [place] [address], [place] [phone] * CULTURE FUNGUS OTHER+FUNGUS SMEAR (07/27/2024 9:11 AM CDT) Culture No fungus isolated CHARLES 08/23/2024 6:[address] [facility] Fungus Stain No yeast or hyphae seen 08/23/2024 6:[address] [facility] Microbiology SYNOVIAL FLUID / Unknown Collection / Unknown 07/27/2024 9:11 AM CDT 07/27/2024 10:26 AM CDT Tao Chapman MD LAB - MICROBIOLOGY O DARRELL Performing Organization Address [facility]/ZIP Co de Phone Number [facility] [address] [place] [address], [facility] [phone] * CULTURE ANAEROBE (07/27/2024 9:11 AM CDT) Pathologist [facility] Culture No anaerobic organisms isolated CHARLES 08/01/2024 8:[address] [facility] Microbiology SYNOVIAL FLUID / Unknown Collection / Unknown 07/27/2024 9:11 AM CDT 07/27/2024 10:26 AM CDT Tao Chapman MD LAB - MICROBIOLOGY O [place] Performing Organization Address [facility] de Phone Number [facility] [address] [place] [address], [facility] [phone] * HCG BETA BLOOD QUANTITATIVE (07/27/2024 5:01 AM CDT) Beta-hCG Total Quantitative <3 mIU/mL 07/27/2024 6:15 AM CDT [facility] Comment: HCG Numeric Result [...] other purposes. Blood BLOOD SPECIMEN / Unknown Venipuncture / Unknown 07/27/2024 5:01 AM CDT 07/27/2024 5:10 AM CDT Tao Chapman MD LAB - CHEMISTRY DIVINA OLVERA [facility] Organization Address City/State/ZIP Co de Phone Number [facility] [address] [place] [address], [facility] [phone] * (ABNORMAL) RENAL FUNCTION PANEL (07/27/2024 5:01 AM CDT) BUN 49(H) 7 - 26 mg/dL 07/27/2024 5:55 AM [facility] Creatinine 9.99(H) 0.56 - 0.96 mg/dL 07/27/2024 5:55 AM [facility] Sodium 132(L) 136 - 145 mmol/L 07/27/2024 5:55 AM [facility] Potassium 5.6(H) 3.5 - 4.5 mmol/L 07/27/2024 5:55 AM [facility] Chloride 105 98 - 107 mmol/L 07/27/2024 5:55 AM [facility] CO2 16(L) 22 - 29 mmol/L 07/27/2024 5:55 AM [facility] Glucose 150(H) 70 - 115 mg/dL 07/27/2024 5:55 AM [facility] Albumin 1.6(L) 3.4 - 5.0 g/dL 07/27/2024 5:55 AM [facility] Calcium 7.7(L) 8.4 - 10.2 mg/dL 07/27/2024 5:55 AM [facility] Phosphorus 7.7(H) 2.9 - 5.1 mg/dL 07/27/2024 5:55 AM [facility] Anion Gap 11 6 - 16 07/27/2024 5:55 AM [facility] BUN/Creatinine Ratio 5(L) 7 - 23 07/27/2024 5:55 AM [facility] Osmolality Calculated 290 275 - 295 mOsm/kg 07/27/2024 5:55 AM [facility] eGFR by CKD-EPI 5(L) >=90 mL/min/1.7 3 m2 07/27/2024 5:55 AM [facility] Blood BLOOD SPECIMEN / Unknown Venipuncture / Unknown 07/27/2024 5:01 AM CDT 07/27/2024 5:10 AM CDT Ralph Burt MD LAB - CHEMISTRY DIVINA OLVERA [facility] Organization Address City/State/ZIP Co de Phone Number [facility] [address] [place] [address], [facility] [phone] * (ABNORMAL) CBC W/O DIFFERENTIAL (07/27/2024 5:01 AM CDT) Pathologist [facility] WBC 11.7(H) 4.0 - 10.7 x10E9/L 07/27/2024 5:27 AM [facility] RBC Count 3.08(L) 3.90 - 5.20 x10E12/L 07/27/2024 5:27 AM [facility] Hemoglobin 9.0(L) 11.9 - 15.8 g/dL 07/27/2024 5:27 AM [facility] Hematocrit 28.7(L) 34.8 - 46.1 % 07/27/2024 5:27 AM [facility] MCV 93.2 80.0 - 98.0 fL 07/27/2024 5:27 AM [facility] MCH 29.2 26.7 - 33.6 pg 07/27/2024 5:27 AM [facility] MCHC 31.4(L) 31.7 - 36.3 g/dL 07/27/2024 5:27 AM [facility] RDW-CV 13.7 11.3 - 14.8 % 07/27/2024 5:27 AM [facility] Platelet Count 339 150 - 420 x10E9/L 07/27/2024 5:27 AM [facility] MPV 9.5 7.8 - 11.4 fL 07/27/2024 5:27 AM [facility] Blood BLOOD SPECIMEN / Unknown Venipuncture / Unknown 07/27/2024 5:01 AM CDT 07/27/2024 5:10 AM CDT Ralph Burt MD LAB - HEMATOLOGY ORD ERABLES [id number] [place] [address], [facility] [phone] * (ABNORMAL) CULTURE BLOOD (07/26/2024 11:08 PM CDT) Culture Growth of Staphylococcus aureus methicillin-resi stant (MRSA)(AA) 07/29/2024 11:[address] [facility] Comment:Staphylococcus aureu s methicillin-resistant (MRSA) detected by penicillin binding protein immunoassay. Contact precautions required. Conventional antibiotic susceptibility testing to follow. Gram Stain Gram-positive cocci in clusters(AA) 07/29/2024 11:[address] [facility] Blood PERIPHERAL BLOOD / Unknown Lab Venipuncture / Unknown 07/26/2024 11:08 PM CDT 07/26/2024 11:[address] [facility] - 07/29/2024 11:50 AM CDT Methicillin-resistant Staphylococci (MRSA) are resistant to all currently available beta-lactam antibiotics with the exception of the newer cephalosporins with anti-MRSA activity. Contact precautions required. Positive at 18 hours 59 minutes. Refer to previously reported susceptibility testing, specimen number: [id number] Infectious disease consultation strongly recommended, where available. Ralph Burt MD LAB - MICROBIOLOGY O RDERABLES [facility] [address] [place] [address], [facility] [phone] * (ABNORMAL) CULTURE BLOOD (07/26/2024 10:52 PM CDT) Culture Growth of Staphylococcus aureus methicillin-resi stant (MRSA)(AA) 07/29/2024 9:[address] [facility] Comment:Staphylococcus aureu s methicillin-resistant (MRSA) detected by penicillin binding protein immunoassay. Contact precautions required. Conventional antibiotic susceptibility testing to follow. Gram Stain Gram-positive cocci in clusters(AA) 07/29/2024 9:[address] [facility] Blood PERIPHERAL BLOOD / Unknown Lab Venipuncture / Unknown 07/26/2024 10:52 PM CDT 07/26/2024 11:[address] [facility] - 07/29/2024 9:59 AM CDT Methicillin-resistant Staphylococci (MRSA) are resistant to all currently available beta-lactam antibiotics with the exception of the newer cephalosporins with anti-MRSA activity. Contact precautions required. Positive at 15 hours 11 minutes. Refer to previously reported susceptibility testing, specimen number: [id number] Infectious disease consultation strongly recommended, where available. Ralph Burt MD LAB - MICROBIOLOGY O RDERABLES [facility] [address] [place] [address], [facility] [phone] * (ABNORMAL) GLUCOSE - POINT OF CARE (07/26/2024 7:54 PM CDT) Glucose WB/POC 136(H) 70 - 115 mg/dL 07/27/2024 4:17 AM CDT [facility] Specimen Type Cap Fingerstick 2023 4:17 AM CDT [facility] Blood BLOOD SPECIMEN / Unknown 07/26/2024 7:54 PM CDT 07/27/2024 4:17 AM CDT Ralph Burt MD LAB - POINT OF CARE ORDERABLES [address] [address], [place] [phone] * (ABNORMAL) GLUCOSE - POINT OF CARE (07/26/2024 5:09 PM CDT) Glucose WB/POC 152(H) 70 - 115 mg/dL 07/27/2024 8:09 AM CDT [facility] Specimen Type Arterial 07/27/2024 8:09 AM CDT [facility] Blood BLOOD SPECIMEN / Unknown 07/26/2024 5:09 PM CDT 07/27/2024 8:09 AM CDT Ralph Burt MD LAB - POINT OF CARE ORDERABLES Performing Organization Address City/[facility]/ZIP Co de Phone Number [facility] [address] [place] [address], [facility] [phone] * TYPE + SCREEN PANEL (07/26/2024 3:48 PM CDT) Antibody Screen NEG 5:04 PM CDT [facility] ABO Rh A POS 07/26/2024 5:04 PM CDT [facility] Blood Bank BLOOD SPECIMEN / Unknown Lab Venipuncture / Unknown 07/26/2024 3:48 PM CDT 07/26/2024 4:20 PM CDT Ralph Burt MD LAB - BLOOD BANK ORD ERABLES Performing Organization Address [facility]/ZIP Co de Phone Number [facility] [address] [place] [address], [facility] [phone] * XR Shoulder Right 2Vw or More (07/26/2024 2:29 PM CDT) Anatomical Region Laterality Modality Upper Extremity Radiographic Nissa ging 07/26/2024 4:25 PM CDT Impressions 07/26/2024 4:28 PM CDT IMPRESSION: Osseous erosions of the humeral head and scapula, 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 Findings are further characterized outside hospital CT from 07/25/2024 ([facility] No acute fracture or dislocation. Partially imaged airspace opacity in the setting of the right lung. Recommend attention to dedicated chest radiograph. > Interpreting Provider: Matt Maguire MD on 07/26/2024 4:28 PM Narrative 07/26/2024 4:28 PM CDT PROCEDURE: ??XR SHOULDER RIGHT 2VW OR MORE DATE/TIME OF EXAM: ??07/26/2024 2:29 PM CLINICAL INFORMATION: None relevant/not provided if blank. Indication: M00.9: Pyogenic arthritis of right shoulder region, due to unspecified organism (HCC) M25.511: Acute pain of right shoulder Additional History: COMPARISON: Shoulder radiograph dated 02/22/2024, CT right shoulder dated 07/25/2024 FINDINGS: Osseous erosions of the humeral head are present. Question osseous erosions of the superior glenoid margin, better characterized on prior CT. No acute fracture or dislocation. The humeral head is well-seated within the glenoid cavity. Recommend clavicular joint space is maintained. Glenohumeral joint space is maintained. Joint effusion is better characterized on prior CT. Patchy airspace opacities of the right lung are noted. Procedure Note Matt Maguire MD - 07/26/2024 PROCEDURE: XR SHOULDER RIGHT 2VW OR MORE DATE/TIME OF EXAM: 07/26/2024 2:29 PM CLINICAL INFORMATION: None relevant/not provided if blank. Indication: M00.9: Pyogenic arthritis of right shoulder region, due to unspecified organism (HCC) M25.511: Acute pain of right shoulder Additional History: COMPARISON: Shoulder radiograph dated 02/22/2024, CT right shoulder dated 07/25/2024 FINDINGS: Osseous erosions of the humeral head are present. Question osseouserosions of the superior glenoid margin, better characterized on prior CT. Noacute fracture or dislocation. The humeral head is well-seated within theglenoid cavity. Recommend clavicular joint space is maintained. Glenohumeraljoint space is maintained. Joint effusion is better characterized on prior CT. Patchy airspace opacities of the right lung are noted. IMPRESSION: Osseous erosions of the humeral head and scapula, 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 Findings are further characterized outside hospital CT from 07/25/2024 ([facility]). No acute fracture or dislocation. Partially imaged airspace opacity in the setting of the right lung. Recommend attention to dedicated chest radiograph. > Interpreting Provider: Matt Maguire MD on 07/26/2024 4:28 PM Ralph Burt MD DIAGNOSTIC IMAGING O RDERABLES * DIFFERENTIAL MANUAL FLUID (07/26/2024 1:20 PM CDT) Fluid Source Synovial 07/26/2024 3:32 PM CDT [facility] Body Fluid Total Cell Count 100 x10E6/L 07/26/2024 3:32 PM CDT [facility] Neutrophils Fluid Percent 97 % 07/26/2024 3:32 PM CDT [facility] Macrophages Fluid Percent 3 % 07/26/2024 3:32 PM CDT [facility] Fluid SYNOVIAL FLUID / Unknown Collection / Unknown 07/26/2024 1:20 PM CDT 07/26/2024 1:35 PM CDT [facility] - 07/26/2024 3:32 PM CDT No reference ranges established for body fluid differential cell counts. ??The test results must be integrated into the clinical context for interpretation. Ralph Burt MD LAB - BODY FLUID ORD ERABLES Performing Organization Address [facility]/ZIP Co de Phone Number [address] [address], [facility] [phone] * PATHOLOGY SMEAR BODY FLUID (07/26/2024 1:20 PM CDT) Path Review Fluid Confirmed 07/27/2024 2:02 PM CDT [facility] Fluid SYNOVIAL FLUID / Unknown Collection / Unknown 07/26/2024 1:20 PM CDT 07/26/2024 1:20 PM CDT [facility] - 07/27/2024 2:02 PM CDT Synovial fluid cytospin: -Acute inflammatory infiltrate -Intracellular microorganisms -Minimal peripheral blood contamination Comment: Correlation with concurrent microbiology for species identification and susceptibilities is recommended. Clinical History: The patient is a 33-year-old female with a history of diabetes and a right above the knee amputation. She has a history of pyogenic arthritis. The patient underwent incision and debridement of the right shoulder. Roxanna Ruff MD Attending Physician Department of Pathology Transfusion Medicine Ralph Burt MD LAB - PATHOLOGY/CYTO LOGY ORDERABLES Performing Organization Address [facility]/ZIP Co de Phone Number [address] [address], [facility] [phone] * CULTURE ANAEROBE (07/26/2024 1:20 PM CDT) Culture No anaerobic organisms isolated CHARLES 08/01/2024 8:[address] [facility] Microbiology SYNOVIAL FLUID / Unknown 07/26/2024 1:20 PM CDT 07/26/2024 1:20 PM CDT Ralph Burt MD LAB - MICROBIOLOGY O RDERABLES [facility] [address] [place] [address], [facility] [phone] * CRYSTAL INDENTIFICATION SYNOVIAL FLUID (07/26/2024 1:20 PM CDT) Crystal Exam Fluid To be performed by Pathology. See Path Review. 07/26/2024 2:30 PM CDT [facility] Fluid SYNOVIAL FLUID / Unknown Collection / Unknown 07/26/2024 1:20 PM CDT 07/26/2024 1:20 PM CDT Ralph Burt MD LAB - BODY FLUID ORD ERABLES [facility] [address] [place] [address], [place] [phone] * (ABNORMAL) CULTURE FLUID+GRAM STAIN (07/26/2024 1:20 PM CDT) Culture Heavy Staphylococcus aureus methicillin-resistan t (MRSA)(AA) CHARLES 07/30/2024 3:[address] [facility] Gram Stain Heavy Polymorphonuclear cells(AA) 07/30/2024 3:[address] [facility] Gram Stain Light Gram-positive cocci(AA) 07/30/2024 3:[address] [facility] Other SYNOVIAL FLUID / Unknown Collection / Unknown 07/26/2024 1:20 PM CDT 07/26/2024 1:[address] [facility] - 07/30/2024 3:33 AM CDT Methicillin-resistant Staphylococci (MRSA) are resistant [...] methicillin-resistant (MRSA) Vancomycin CHARLES 1 ug/mL: Susceptible Ralph Burt MD LAB - MICROBIOLOGY O RDERABLES Performing Organization Address City/[facility]/ZIP Co de Phone Number [facility] [address] [place] [address], [facility] [phone] * (ABNORMAL) CELL COUNT W DIFFERENTIAL FLUID (07/26/2024 1:20 PM CDT) Fluid Source Synovial 07/26/2024 3:32 PM CDT [facility] Fluid Appearance CLOUDY 07/26/2024 3:32 PM CDT [facility] Fluid Color PALE YELLOW 07/26/2024 3:32 PM CDT [facility] Total Nucleated Cells Fluid 219,660(H) <=200 x10E6/L 07/26/2024 3:32 PM CDT [facility] RBC Count Fluid 15,000 Reference Range Not Established x10E6/L 07/26/2024 3:32 PM CDT [facility] Fluid SYNOVIAL FLUID / Unknown Collection / Unknown 07/26/2024 1:20 PM CDT 07/26/2024 1:35 PM CDT [facility] - 07/26/2024 3:32 PM CDT No reference ranges established for body fluid cell counts. Any reference ranges provided are derived from published literature. The test results must be integrated into the clinical context for interpretation. Ralph Burt MD LAB - BODY FLUID ORD ERABLES Performing Organization Address City/[facility]/ZIP Co de Phone Number [facility] [address] [place] [address], [place] [phone] * (ABNORMAL) GLUCOSE - POINT OF CARE (07/26/2024 12:23 PM CDT) Glucose WB/POC 150(H) 70 - 115 mg/dL 07/26/2024 12:29 PM CDT [facility] Specimen Type Cap Fingerstick 2023 12:29 PM CDT [facility] Blood BLOOD SPECIMEN / Unknown 07/26/2024 12:23 PM CDT 07/26/2024 12:29 PM CDT Ralph Burt MD LAB - POINT OF CARE ORDERABLES [address] [address], [place] [phone] * VANCOMYCIN LEVEL RANDOM (07/26/2024 9:23 AM CDT) Vancomycin Random 32.2 Therapeutic Ranges not established for random specimens ug/mL 07/26/2024 10:22 AM CDT [facility] Blood BLOOD SPECIMEN / Unknown Lab Venipuncture / Unknown 07/26/2024 9:23 AM CDT 07/26/2024 9:23 AM CDT Narrative [facility] - 07/26/2024 10:22 AM CDT See institution protocol. Ralph Burt MD LAB - CHEMISTRY ORDE RABLES Performing Organization Address City/[facility]/ZIP Co de Phone Number [address] [address], [place] [phone] * (ABNORMAL) B-TYPE NATRIURETIC PEPTIDE (07/26/2024 8:50 AM CDT) BNP 380(H) <100 pg/mL 07/26/2024 9:33 AM CDT [facility] Comment: A decision threshold of 100 pg/mL [...] Burt MD LAB - CHEMISTRY DIVINA OLVERA Performing Organization Address City/State/[facility] Co de Phone Number [address] [place] [address], [place] [phone] * (ABNORMAL) PROCALCITONIN LEVEL (07/26/2024 8:50 AM CDT) PROCALCITONIN 2.18(H) <=0.10 ng/mL 07/26/2024 9:52 AM CDT [facility] Blood BLOOD SPECIMEN / Unknown Lab Venipuncture / Unknown 07/26/2024 8:50 AM CDT 07/26/2024 8:59 AM CDT Narrative [facility] - 07/26/2024 9:52 AM CDT The change [...] Change in Procalcitonin Calculator is available at [email or web address] ?? If clinical picture has not improved and PCT remains high, reevaluate and consider treatment failure or other causes. Ralph Burt MD LAB - CHEMISTRY DIVINA OLVERA [facility] [address] [place] [address], [facility] [phone] * (ABNORMAL) RENAL FUNCTION PANEL (07/26/2024 8:50 AM CDT) BUN 38(H) 7 - 26 mg/dL 07/26/2024 10:02 AM [facility] Creatinine 8.40(H) 0.56 - 0.96 mg/dL 07/26/2024 10:02 AM [facility] Sodium 133(L) 136 - 145 mmol/L 07/26/2024 10:02 AM [facility] Potassium 5.3(H) 3.5 - 4.5 mmol/L 07/26/2024 10:02 AM [facility] Chloride 108(H) 98 - 107 mmol/L 07/26/2024 10:02 AM [facility] CO2 14(L) 22 - 29 mmol/L 07/26/2024 10:02 AM [facility] Glucose 161(H) 70 - 115 mg/dL 07/26/2024 10:02 AM [facility] Albumin 1.8(L) 3.4 - 5.0 g/dL 07/26/2024 10:02 AM [facility] Calcium 8.1(L) 8.4 - 10.2 mg/dL 07/26/2024 10:02 AM [facility] Phosphorus 7.4(H) 2.9 - 5.1 mg/dL 07/26/2024 10:02 AM [facility] Anion Gap 11 6 - 16 07/26/2024 10:02 AM [facility] BUN/Creatinine Ratio 5(L) 7 - 23 07/26/2024 10:02 AM [facility] Osmolality Calculated 289 275 - 295 mOsm/kg 07/26/2024 10:02 AM [facility] eGFR by CKD-EPI 6(L) >=90 mL/min/1.7 3 m2 07/26/2024 10:02 AM [facility] Blood BLOOD SPECIMEN / Unknown Lab Venipuncture / Unknown 07/26/2024 8:50 AM CDT 07/26/2024 8:[address] [facility] Ralph Burt MD LAB - CHEMISTRY ORDMichaela OLVERA [facility] Organization Address City/State/ZIP Co de Phone Number [facility] [address] [place] [address], [facility] [phone] * (ABNORMAL) CBC W/O DIFFERENTIAL (07/26/2024 8:50 AM CDT) WBC 11.9(H) 4.0 - 10.7 x10E9/L 07/26/2024 9:19 AM [facility] RBC Count 3.38(L) 3.90 - 5.20 x10E12/L 07/26/2024 9:19 AM [facility] Hemoglobin 9.7(L) 11.9 - 15.8 g/dL 07/26/2024 9:19 AM [facility] Hematocrit 31.6(L) 34.8 - 46.1 % 07/26/2024 9:19 AM [facility] MCV 93.5 80.0 - 98.0 fL 07/26/2024 9:19 AM [facility] MCH 28.7 26.7 - 33.6 pg 07/26/2024 9:19 AM [facility] MCHC 30.7(L) 31.7 - 36.3 g/dL 07/26/2024 9:19 AM [facility] RDW-CV 13.6 11.3 - 14.8 % 07/26/2024 9:19 AM [facility] Platelet Count 283 150 - 420 x10E9/L 07/26/2024 9:19 AM [facility] MPV 9.6 7.8 - 11.4 fL 07/26/2024 9:19 AM [facility] Blood BLOOD SPECIMEN / Unknown Lab Venipuncture / Unknown 07/26/2024 8:50 AM CDT 07/26/2024 8:59 AM CDT Ralph Burt MD LAB - HEMATOLOGY ORD ERABLES [facility] [address] [place] [address], [facility] [phone] * XR Chest 1Vw Portable (07/25/2024 11:57 PM CDT) Anatomical Region Laterality Modality Chest Radiographic Nissa ging 07/26/2024 10:0 7 AM CDT Narrative 07/26/2024 2:30 PM CDT PROCEDURE: ??XR CHEST 1VW PORTABLE, DATE/TIME OF EXAM: ??07/25/2024 11:57 PM, LOCATION ??[facility] INDICATION: J18.9: Pneumonia of both lungs due to infectious organism, unspecified part of lung ADDITIONAL CLINICAL INFORMATION: Ordering Provider Reason For Exam: ??possible pneumonia COMPARISON: Chest radiograph dated 05/20/2024. FINDINGS/IMPRESSION: *Right internal jugular approach dialysis catheter terminates in the superior cavoatrial junction, unchanged. Mild bilateral interstitial opacities may represent mild interstitial edema and/or atypical infection. There is no confluent airspace consolidation. No pleural effusion or pneumothorax. Cardiomegaly is suggested on this portable AP projection exam, unchanged. Mediastinal contours are normal. The visible bony thorax is intact. Report dictated by Yo Austin MD, (energy operations vice president). Franci Kim MD have personally reviewed and interpreted this examination/study. > Interpreting Provider: Franci Morin MD on 07/26/2024 2:30 PM Procedure Note Franci Morin MD - 07/26/2024 PROCEDURE: XR CHEST 1VW PORTABLE, DATE/TIME OF EXAM: 07/25/2024 11:57PM, LOCATION [facility] INDICATION: J18.9: Pneumonia of both lungs due to infectious organism, unspecifiedpart of lung ADDITIONAL CLINICAL INFORMATION: Ordering Provider Reason For Exam: possible pneumonia COMPARISON: Chest radiograph dated 05/20/2024. FINDINGS/IMPRESSION: *Right internal jugular approach dialysis catheter terminates in the superior cavoatrial junction, unchanged. Mild bilateral interstitial opacities may represent mild interstitialedema and/or atypical infection. There is no confluent airspace consolidation.No pleural effusion or pneumothorax. Cardiomegaly is suggested on this portable AP projection exam, unchanged. Mediastinal contours are normal. The visible bony thorax is intact. Report dictated by Yo Austin MD, (energy operations vice president). Franci Kim MD have personally reviewed and interpreted this examination/study. > Interpreting Provider: Franci Morin MD on 07/26/2024 2:30 PM Ralph Burt MD DIAGNOSTIC IMAGING O RDERABLES * (ABNORMAL) CULTURE BLOOD (07/25/2024 11:18 PM CDT) Pathologist [facility] Culture Growth of Staphylococcus aureus methicillin-resi stant (MRSA)(AA) 07/28/2024 11:[address] [facility] Comment:Staphylococcus aureu s methicillin-resistant (MRSA) detected by penicillin binding protein immunoassay. Contact precautions required. Conventional antibiotic susceptibility testing to follow. Gram Stain Gram-positive cocci in clusters(AA) 07/28/2024 11:[address] [facility] Blood PERIPHERAL BLOOD / Unknown Lab Venipuncture / Unknown 07/25/2024 11:18 PM CDT 07/25/2024 11:[address] [facility] - 07/28/2024 11:10 AM CDT Methicillin-resistant Staphylococci (MRSA) are resistant to all currently available beta-lactam antibiotics with the exception of the newer cephalosporins with anti-MRSA activity. Contact precautions required. Contact precautions required. Positive at 12 hours 7 minutes. Infectious disease consultation strongly recommended, where available. Refer to previously reported susceptibility testing, specimen number: [id number] Ralph Burt MD LAB - MICROBIOLOGY O [facility] [address] [facility] [address] [phone] * (ABNORMAL) BCID PANEL (07/25/2024 11:16 PM CDT) Pathologist [facility] Staphylococcus aureus Detected (A) Not detected 07/26/2024 4:[address] [facility] MECA/C and MREJ (Methicillin-Resi stance Gene) Detected (A) Not detected 07/26/2024 4:[address] [facility] Comment:Results indicate met hicillin-resistant Staphylococcus aureus (MRSA). Methicillin resistance detected. Blood PERIPHERAL BLOOD / Unknown Lab Venipuncture / Unknown 07/25/2024 11:16 PM CDT 07/25/2024 11:[address] [facility] - 07/26/2024 4:44 PM CDT Blood Culture ID Panel performed by [employer] multiplex PCR. The Test panel includes: Gram [...] MREJ (methicillin- resistance - MRSA), NDM ([place] arxlxce-hxdv-gggfdmyhl), OXA-48-like (oxacillinase beta-lactamase),Geo/B (vancomycin-resistance), VIM ([place] Intergrom-Encoded Metallo beta-lactamase). Ralph Burt MD LAB - MICROBIOLOGY O RDERABLES [facility] [address] [place], [place] [address], [facility] [phone] * (ABNORMAL) CULTURE BLOOD (07/25/2024 11:16 PM CDT) Culture Growth of Staphylococcus aureus methicillin-resi stant (MRSA)(AA) CHARLES 07/28/2024 2:[address] [facility] Comment:Staphylococcus aureu s methicillin-resistant (MRSA) detected by penicillin binding protein immunoassay. Contact precautions required. Conventional antibiotic susceptibility testing to follow. Gram Stain Gram-positive cocci in clusters(AA) 07/28/2024 2:[address] [facility] Blood PERIPHERAL BLOOD / Unknown Lab Venipuncture / Unknown 07/25/2024 11:16 PM CDT 07/25/2024 11:[address] [facility] - 07/28/2024 2:40 PM CDT Methicillin-resistant Staphylococci (MRSA) are resistant to all currently available beta-lactam antibiotics with the exception of the newer cephalosporins with anti-MRSA activity. Contact precautions required. Positive at 12 hours 50 minutes. Infectious disease consultation strongly recommended, where available. Organism Antibiotic Method Susceptibility Staphylococcus aureus methic illin-resistant (MRSA) Oxacillin CHARLES >=4 ug/mL: Resistant Staphylococcus aureus methic illin-resistant (MRSA) Vancomycin CHARLES 1 ug/mL: Susceptible Ralph Burt MD LAB - MICROBIOLOGY O RDERABLES Performing Organization Address City/[facility]/ZIP Co de Phone Number [facility] MICROBIOLOGY [address] [place] [address], [facility] [phone] * PTT [facility] (07/25/2024 11:16 PM CDT) APTT 30.3 23.0 - 38.4 Seconds 07/25/2024 11:55 PM CDT [facility] Comment:Suggested therapeuti c range for full dose I.V. unfractionated heparin therapy for venous thromboembolism is 71 to 109 seconds. Blood BLOOD SPECIMEN / Unknown Lab Venipuncture / Unknown 07/25/2024 11:16 PM CDT 07/25/2024 11:26 PM CDT Ralph Burt MD LAB - COAGULATION OR DERABLES [facility] [address] [place] [address], [place] [phone] * (ABNORMAL) PT-INR [facility] (07/25/2024 11:16 PM CDT) PT 15.3(H) 12.1 - 14.8 Seconds 07/25/2024 11:55 PM CDT [facility] INR 1.2 See Comment 07/25/2024 11:55 PM CDT [facility] Comment:The suggested therap eutic range for standard coumadin (warfarin) therapy is an INR of 2.0-3.0. For high-risk patients (Mechanical Mitral Valve Prosthesis, etc.), the suggested prophylactic therapeutic range is an INR of 2.5-3.5. Blood BLOOD SPECIMEN / Unknown Lab Venipuncture / Unknown 07/25/2024 11:16 PM CDT 07/25/2024 11:26 PM CDT Ralph Burt MD LAB - COAGULATION OR DERABLES Performing Organization Address City/[facility]/ZIP Co de Phone Number [address] [address], [facility] [phone] * LACTIC ACID BLOOD (07/25/2024 11:16 PM CDT) Lactic Acid-Stat 0.6 <=2.0 mmol/L 07/25/2024 11:53 PM CDT [facility] Blood BLOOD SPECIMEN / Unknown Lab Venipuncture / Unknown 07/25/2024 11:16 PM CDT 07/25/2024 11:26 PM CDT Ralph Burt MD LAB - CHEMISTRY ORDE RABLES Performing Organization Address [facility]/ZIP Co de Phone Number [address] [address], [facility] [phone] * (ABNORMAL) ERYTHROCYTE SEDIMENTATION RATE (07/25/2024 11:16 PM CDT) Erythrocyte Sedimentation Rate Westergren 120(H) 0 - 20 MM/HR 07/25/2024 11:56 PM CDT [facility] Blood BLOOD SPECIMEN / Unknown Lab Venipuncture / Unknown 07/25/2024 11:16 PM CDT 07/25/2024 11:27 PM CDT Ralph Burt MD LAB - HEMATOLOGY ORD ERABLES [facility] [address] [place] [address], [facility] [phone] * (ABNORMAL) C-REACTIVE PROTEIN (07/25/2024 11:16 PM CDT) Pathologist [facility] C-Reactive Protein 28.3(H) <=0.5 mg/dL 07/25/2024 11:58 PM T [facility] Blood BLOOD SPECIMEN / Unknown Lab Venipuncture / Unknown 07/25/2024 11:16 PM CDT 07/25/2024 11:27 PM CDT Ralph Burt MD LAB - CHEMISTRY ORDE WAED Performing Organization Address [facility]/ZIP Co de Phone Number [facility] [address] [place] [address], [facility] [phone] * (ABNORMAL) RENAL FUNCTION PANEL (07/25/2024 11:16 PM CDT) Pathologist [facility] BUN 36(H) 7 - 26 mg/dL 07/25/2024 11:58 PM [facility] Creatinine 7.46(H) 0.56 - 0.96 mg/dL 07/25/2024 11:58 PM [facility] Sodium 134(L) 136 - 145 mmol/L 07/25/2024 11:58 PM [facility] Potassium 4.7(H) 3.5 - 4.5 mmol/L 07/25/2024 11:58 PM [facility] Chloride 107 98 - 107 mmol/L 07/25/2024 11:58 PM [facility] CO2 18(L) 22 - 29 mmol/L 07/25/2024 11:58 PM [facility] Glucose 138(H) 70 - 115 mg/dL 07/25/2024 11:58 PM [facility] Albumin 1.9(L) 3.4 - 5.0 g/dL 07/25/2024 11:58 PM [facility] Calcium 8.3(L) 8.4 - 10.2 mg/dL 07/25/2024 11:58 PM [facility] Phosphorus 6.5(H) 2.9 - 5.1 mg/dL 07/25/2024 11:58 PM [facility] Anion Gap 9 6 - 16 07/25/2024 11:58 PM [facility] BUN/Creatinine Ratio 5(L) 7 - 23 07/25/2024 11:58 PM [facility] Osmolality Calculated 289 275 - 295 mOsm/kg 07/25/2024 11:58 PM [facility] eGFR by CKD-EPI 7(L) >=90 mL/min/1.7 3 m2 07/25/2024 11:58 PM [facility] Blood BLOOD SPECIMEN / Unknown Lab Venipuncture / Unknown 07/25/2024 11:16 PM CDT 07/25/2024 11:27 PM CDT Ralph Burt MD LAB - CHEMISTRY ORDE WADE [facility] Organization Address City/[facility] Co de Phone Number [address] [address] [phone] * (ABNORMAL) CBC W/O DIFFERENTIAL (07/25/2024 11:16 PM CDT) WBC 13.0(H) 4.0 - 10.7 x10E9/L 07/25/2024 11:33 PM [facility] RBC Count 3.35(L) 3.90 - 5.20 x10E12/L 07/25/2024 11:33 PM [facility] Hemoglobin 9.5(L) 11.9 - 15.8 g/dL 07/25/2024 11:33 PM [facility] Hematocrit 31.7(L) 34.8 - 46.1 % 07/25/2024 11:33 PM [facility] MCV 94.6 80.0 - 98.0 fL 07/25/2024 11:33 PM [facility] MCH 28.4 26.7 - 33.6 pg 07/25/2024 11:33 PM [facility] MCHC 30.0(L) 31.7 - 36.3 g/dL 07/25/2024 11:33 PM CDT [facility] RDW-CV 13.6 11.3 - 14.8 % 07/25/2024 11:33 PM CDT [facility] Platelet Count 269 150 - 420 x10E9/L 07/25/2024 11:33 PM CDT [facility] MPV 10.0 7.8 - 11.4 fL 07/25/2024 11:33 PM CDT [facility] Blood BLOOD SPECIMEN / Unknown Lab Venipuncture / Unknown 07/25/2024 11:16 PM CDT 07/25/2024 11:27 PM CDT Ralph Burt MD LAB - HEMATOLOGY ORD ERABLES [facility] [address] [place] [address], [place] [phone] * (ABNORMAL) GLUCOSE - POINT OF CARE (07/25/2024 8:47 PM CDT) [facility] Glucose WB/POC 161(H) 70 - 115 mg/dL 07/26/2024 6:12 AM CDT [facility] Specimen Type Cap Fingerstick 2023 6:12 AM CDT [facility] Blood BLOOD SPECIMEN / Unknown 07/25/2024 8:47 PM CDT 07/26/2024 6:12 AM CDT Ralph Burt MD LAB - POINT OF CARE ORDERABLES [facility] [address] [place] [address], [place] [phone] documented in this encounter Visit Diagnoses Diagnosis MRSA bacteremia- Primary Bacteremia Pneumonia of both lungs due to infectious organism, unspecified part of lung Pyogenic arthritis of right shoulder region, due to unspecified organism (HCC) Acute pain of right shoulder Sepsis, due to unspecified organism, unspecified whether acute organ dysfunction present (HCC) Swelling of right upper extremity Sepsis due to methicillin resistant Staphylococcus aureus (MRSA), unspecified whether acute organ dysfunction present (HCC) Chronic heel ulcer, right, with unspecified severity (HCC) MRSA bacteremia Bacteremia ESRD (end stage renal disease) ([facility]) End stage renal disease Hypoxia Hypoxemia Osteomyelitis of right foot, unspecified type ([facility]) Septic arthritis of shoulder, right ([facility]) Pyogenic arthritis, shoulder region Pneumonia of both lungs due to infectious organism, unspecified part of lung S/P AKA (above knee amputation) unilateral, left ([facility]) 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, with long-term current use of insulin ([facility]) Essential hypertension ESRD (end stage renal disease) ([facility]) End stage renal disease Anemia Anemia, unspecified 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 ([facility]) CHF (congestive heart failure) ([facility]) Congestive heart failure, unspecified Acute pain of right shoulder Sepsis due to methicillin resistant Staphylococcus aureus (MRSA) ([facility]) Dyslipidemia Other and unspecified hyperlipidemia Obesity, Class II, BMI 35-39.9 Obesity, unspecified Hyponatremia Hyposmolality and/or hyponatremia Hyperkalemia Hyperpotassemia Hypoalbuminemia Other disorders of plasma protein metabolism Hyperphosphatemia Disorders of phosphorus metabolism Hypocalcemia Chronic ulcer of right heel ([facility]) Osteomyelitis of right foot ([facility]) Unspecified osteomyelitis, ankle and foot documented in this encounter Administered Medications Inactive Administered Medications - up to 3 most recent administrations Medication Order MAR Action Action Date Dose Rate Site 0.9% NaCl infusion Intravenous, CONTINUOUS PRN, Starting on Fri08/06/24 at 1154, Until Fri08/06/24 at 1154, Intra-op $ New Bag/Syringe 08/06/2024 11:54 AM CDT 250 mL 0.9% NaCl injection 1-10 mL 1-10 mL, Intracatheter, PRN, Other, peripheral line flush, Starting on Fri07/25/24 at 2159, Until Fri08/09/24 at 1402, Flush peripheral IV catheter with 1-10 mL of normal saline before and after medications and prn to clear blood from the line or to verify patency. $ Given 07/28/2024 8:36 AM CDT 10 mL 0.9% NaCl injection 10-40 mL 10-40 mL, Intracatheter, EVERY 8 HOURS, First dose on Fri08/03/24 at 1745, Until Discontinued, Flush each lumen of mid-line with 10ml NS IVP every 8 hours (regardless of continuous IV infusion). Flushing may be contraindicated if concentrated drips are infusing. $ Given 08/06/2024 9:11 PM CDT 10 mL $ Given 08/06/2024 4:29 AM CDT 10 mL $ Given 08/05/2024 12:36 PM CDT 10 mL 0.9% NaCl injection 10-40 mL 10-40 mL, Intravenous, PRN, Other, mid-line flush, Starting on Fri08/03/24 at 1713, Until 08/09/24 at 1402, Flush each lumen of mid-line with 10ml NS IVP before and after medication/solution administration, before and after blood product administration, when obtaining blood sample, discard 5-10ml blood, then obtain sample. Upon completion, pulse flush with 20ml sterile NS IVP and PRN to determine patency. 0.9% NaCl injection 3 mL 3 mL, Intracatheter, EVERY 8 HOURS, First dose on Fri07/25/24 at 2230, Until Discontinued, Flush peripheral IV catheter with 3 mL of normal saline every 8 hours. $ Given 08/09/2024 6:18 AM CDT 3 mL $ Given 08/08/2024 8:47 PM CDT 3 mL $ Given 08/08/2024 1:44 PM CDT 3 mL acetaminophen (Tylenol) tablet 650 mg 650 mg, Oral, EVERY 6 HOURS PRN, Mild Pain, Fever, Starting on Fri07/25/24 at 2225, Until 08/09/24 at 1402, Patient preference for lesser PRN pain meds [...] patient cannot tolerate oral intake $ Given 07/29/2024 7:55 P M CDT 650 mg $ Given 07/25/2024 11:54 PM CDT 650 mg ammonium lactate (Lac-Hydrin) 12 % lotion Topical, 2 TIMES DAILY, First dose on Fri07/28/24 at 1130, Until Discontinued, Apply to right lower extremity $ Given 08/08/2024 8:48 PM CDT $ Given 08/08/2024 9:25 AM CDT $ Given 08/07/2024 8:26 PM CDT apixaban (Eliquis) tablet 10 mg 10 mg, Oral, 2 TIMES DAILY, 14 doses, First dose on Fri08/06/24 at 1445, Last dose on Fri08/12/24 at 2100 $ Given 08/09/2024 8:28 AM CDT 10 mg $ Given 08/08/2024 8:47 PM CDT 10 mg $ Given 08/08/2024 9:23 AM CDT 10 mg apixaban (Eliquis) tablet 5 mg 5 mg, Oral, 2 TIMES DAILY, First dose on Fri08/13/24 at 0900, Until Discontinued azithromycin (Zithromax) 500 mg in 0.9% NaCl IV 250 mL IVPB 500 mg, at 250 mL/hr, Intravenous, EVERY 24 HOURS, 2 doses, First dose on Fri07/26/24 at 1800, Last dose on Fri07/27/24 at 1800, Indication for anti-infective therapy: Suspected infection, Site of anti-infective therapy: Lower Respiratory $ New Bag/Syringe 07/26/2024 6:22 PM CDT 500 mg 250 mL/hr carvedilol (Coreg) tablet 12.5 mg 12.5 mg, Oral, 2 TIMES DAILY WITH MEALS, First dose on Fri07/26/24 at 0800, Until Discontinued, Take with food $ Given 08/06/2024 8:10 AM CDT 12.5 mg $ Given 08/05/2024 8:45 AM CDT 12.5 mg $ Given 08/04/2024 5:48 PM CDT 12.5 mg carvedilol (Coreg) tablet 3.125 mg 3.125 mg, Oral, 2 TIMES DAILY WITH MEALS, First dose (after last modification) on Fri08/07/24 at 0830, Until Discontinued, Take with food $ Given 08/09/2024 8:28 AM CDT 3.125 mg $ Given 08/08/2024 5:46 PM CDT 3.125 mg $ Given 08/08/2024 9:23 AM CDT 3.125 mg carvedilol (Coreg) tablet 6.25 mg 6.25 mg, Oral, 2 TIMES DAILY WITH MEALS, First dose (after last modification) on Fri08/06/24 at 1800, Until Discontinued, Take with food $ Given 08/06/2024 5:19 PM CDT 6.25 mg cefepime (Maxipime) 1,000 mg in 0.9% NaCl IV 50 mL IVPB 1,000 mg (1 g), at 100 mL/hr, Intravenous, EVERY 24 HOURS, First dose (after last reorder) on Fri07/26/24 at 1700, Until Discontinued, Indication for anti-infective therapy: Suspected infection, Site of anti-infective therapy: Bone/Joint Rate Change 07/26/2024 6:16 PM CDT 10 mL/hr Rate Change 07/26/2024 6:15 PM CDT 5 mL/hr $ New Bag/Syringe 07/26/2024 5:45 PM CDT 1,000 mg 100 mL /hr dextrose 10 % IV bolus 12.5 g, at 468.75 mL/hr, Intravenous, PRN, Other, Bedside Glucose less than 70 mg/dL -If NOT able to eat and/or NPO and with IV Access, Starting on Fri07/25/24 at 2246, Until Fri08/09/24 at 1402, If NOT able to eat and/or NPO [...] mg/dl. NOTIFY PROVIDER OF HYPOGLYCEMIC EVENT. dextrose 10 % IV bolus 25 g, at 937.5 mL/hr, Intravenous, PRN, Other, Bedside Glucose less than 70 mg/dL -If NOT able to eat and/or NPO and with IV Access, Starting on Fri07/25/24 at 2246, Until Fri08/09/24 at 1402, If NOT able to eat and/or NPO [...] PROVIDER OF HYPOGLYCEMIC EVENT. epoetin carlin-EPBX (Retacrit) 5,000 unit injection 5,000 Units, Intravenous, DIALYSIS EVERY TUE, BLUE & SAT, First dose on Fri07/27/24 at 1700, Until Discontinued $ Given 08/07/2024 3:50 PM CDT 5,000 Units $ Given 08/05/2024 7:33 PM CDT 5,000 Units R ight Neck $ Given 08/03/2024 12:07 PM CDT 5,000 Units fentaNYL (PF) (Sublimaze) injection 25 mcg 25 mcg, Intravenous, EVERY 10 MIN PRN, Mild Pain, 4 doses, Starting on Fri07/27/24 at 0844, Until Fri07/27/24 at 1408, Maximum total of 4 doses. If patient reaches max total dose, please consult anesthesiologist prior to further administration of pain meds. Hold pain meds if there are signs of hypoventilation. Patient preference for lesser PRN pain meds [...] oral first unless patient cannot tolerate oral intake, PACU $ Given 07/27/2024 12:05 PM CDT 25 mcg fentaNYL (PF) (Sublimaze) injection 50 mcg 50 mcg, Intravenous, EVERY 10 MIN PRN, Moderate Pain, 4 doses, Starting on Fri07/27/24 at 0844, Until Fri07/27/24 at 1408, Maximum total of 4 doses. If patient reaches max total dose, please consult anesthesiologist prior to further administration of pain meds. Hold pain meds if there are signs of hypoventilation. Patient preference for lesser PRN pain meds [...] oral first unless patient cannot tolerate oral intake, PACU $ Given 07/27/2024 11:55 AM CDT 50 mcg fentaNYL (PF) (Sublimaze) injection ONCE PRN, Starting on Fri08/06/24 at 1150, Until Fri08/06/24 at 1150, Intra-op $ Given 08/06/2024 11:50 AM CDT 50 mcg ferrous sulfate tablet 325 mg 325 mg, Oral, DAILY WITH BREAKFAST, First dose on Fri07/26/24 at 0800, Until Discontinued, Take with food. Do not take within 2 hours of other medications. $ Given 08/09/2024 8:29 AM CDT 325 mg $ Given 08/08/2024 9:24 AM CDT 325 mg $ Given 08/07/2024 8:42 AM CDT 325 mg furosemide (Lasix) tablet 40 mg 40 mg, Oral, EVERY FRI, FRI AND FRI, First dose on Fri07/26/24 at 1700, Until Discontinued $ Given 07/26/2024 5:31 PM CDT 40 mg furosemide (Lasix) tablet 40 mg 40 mg, Oral, DAILY, First dose (after last modification) on Blue 07/29/24 at 0900, Until Discontinued $ Given 08/06/2024 8:21 AM CDT 40 mg $ Given 08/05/2024 8:44 AM CDT 40 mg $ Given 08/04/2024 9:49 AM CDT 40 mg gabapentin (Neurontin) capsule 300 mg 300 mg, Oral, EVERY FRI, FRI AND FRI, First dose on Fri07/26/24 at 1700, Until Discontinued $ Given 08/06/2024 5:19 PM CDT 300 mg $ Given 08/04/2024 5:48 PM CDT 300 mg $ Given 08/02/2024 5:52 PM CDT 300 mg gadoterate meglumine (Dotarem/Clariscan) injection Intravenous, CONTRAST ONCE, Starting on Fri07/30/24 at 0919, Until Fri08/01/24 at 0918 $ Given - Contrast 07/30/2024 9:20 AM CDT 20 mL glucagon (Glucagen) injection 1 mg 1 mg, Subcutaneous, PRN, Bedside Glucose less than 70 mg/dL - If NOT able to eat and/or NPO and withOUT IV Access, Starting on 07/25/24 at 2246, Until Fri08/09/24 at 1402, If NOT able to eat and/or NPO [...] Glucose less than 70 mg/dL, Starting on 07/25/24 at 2246, Until 08/09/24 at 1402, If able to take oral medications: For [...] for choices) NOTIFY PROVIDER OF HYPOGLYCEMIC EVENT. heparin 100 units/mL bolus from bag 9,050 Units (rounded from 9,032 Units = 80 Units/kg ? 112.9 kg), Intravenous, BOLUS FROM BAG ONCE, 1 dose, On 07/31/24 at 0630 Bolus From Bag 07/31/2024 7:38 AM CDT 9,050 Units heparin 100 units/mL bolus from bag 0-6,800 Units (rounded from 0-6,774 Units = 0-60 Units/kg ? 112.9 kg), Intravenous, BOLUS FROM BAG PRN, heparin nomogram bolus, Starting on 07/31/24 at 0640, Until Fri08/06/24 at 0703 Bolus From Bag 08/02/2024 10:24 AM CDT 6,750 Units Bolus From Bag 07/31/2024 7:46 AM CDT 80 Units heparin 25,000 units in 250 mL (100 units/mL) in dextrose 5% 0-40 Units/kg/hr ? 112.9 kg (0-45.16 mL/hr, rounded to 0-45.2 mL/hr), Intravenous, CONTINUOUS, Starting on 07/31/24 at 0815, Until Fri08/06/24 at 0100, Use the heparin calculator (scroll during admin) for starting rate, boluses or titrations, and weight selection. Use $New Bag/Syringe action when hanging a new bag, no need to use the calculator. Contact provider if patient requires doses outside the prescribed range. Order timed PTT to be drawn 6 hours after infusion initiated After two consecutive aPTTs drawn 6 hours apart are therapeutic, order aPTT to be drawn the following a.m. and daily, VTE Nomogram Goal aPTT (seconds): 69-110, Does patient require INITIAL Heparin Bolus? No $ New Bag/Syringe 08/05/2024 10:26 PM CDT 20 Units/kg/hr 22.6 mL/hr $ New Bag/Syringe 08/05/2024 10:49 AM CDT 20 Units/kg/hr 2 2.6 mL/hr Rate Change 08/04/2024 9:33 PM CDT 20 Units/kg/hr 22.6 mL/ hr heparin injection 1,000 Units 1,000 Units, Intracatheter, DIALYSIS PRN, CVC lock post HD, Starting on Tu07/27/24 at 1443, Until Fri07/31/24 at 0758 $ Given 07/27/2024 6:35 PM CDT 1,000 Units heparin injection 1,000 Units 1,000 Units, Intracatheter, ONCE DIALYSIS, 1 dose, On 07/31/24 at 0800, FOR USE IN DIALYSIS ONLY $ Given 07/31/2024 11:38 AM CDT 1,000 Units heparin injection 1,000 Units 1,000 Units, Intracatheter, ONCE DIALYSIS, 1 dose, On 08/07/24 at 0700, FOR USE IN DIALYSIS ONLY $ Given 08/07/2024 2:27 PM CDT 1,000 Units heparin injection 2,800 Units 2,800 Units, Intracatheter, DIALYSIS PRN, Post Hemodialysis Catheter Dwell, Starting on Tu08/03/24 at 1225, Until 08/09/24 at 1402, Dwell 1.4 mL in red lumen and 1.4 mL in blue lumen of hemodialysis catheter post hemodialysis treatment $ Given 08/05/2024 7:36 PM CDT 2,800 Units Left Neck $ Given 08/03/2024 12:51 PM CDT 2,800 Units heparin injection 5,000 Units 5,000 Units, Subcutaneous, EVERY 8 HOURS, First dose on 07/25/24 at 2300, Until Discontinued $ Given 07/31/2024 5:39 AM CDT 5,000 Units Left Arm $ Given 07/30/2024 9:26 PM CDT 5,000 Units L eft Arm $ Given 07/30/2024 5:42 AM CDT 5,000 Units A bd Right Upper Quadrant heparin injection 500 Units 500 Units, Intracatheter, EVERY HOUR, 6 doses, First dose on 07/31/24 at 0800, Last dose on 07/31/24 at 1300, FOR USE IN DIALYSIS ONLY $ Given 07/31/2024 11:40 AM CDT 500 Units heparin injection 500 Units 500 Units, Intracatheter, EVERY HOUR, 6 doses, First dose on 08/07/24 at 0700, Last dose on 08/07/24 at 1200, FOR USE IN DIALYSIS ONLY $ Given 08/07/2024 3:27 PM CDT 500 Units heparin injection ONCE PRN, Starting on Fri08/06/24 at 1200, Until Fri08/06/24 at 1200, Intra-op $ Given 08/06/2024 12:00 PM CDT 4,500 Units heparinized saline 2 units/mL infusion Other, CONTINUOUS PRN, Starting on Fri08/06/24 at 1154, Until Fri08/06/24 at 1154, Intra-op $ New Bag/Syringe 08/06/2024 11:54 AM CDT 500 mL HYDROmorphone (Dilaudid) injection 0.2 mg 0.2 mg, Intravenous, EVERY 4 HOURS PRN, Severe Pain, Starting on 08/07/24 at 0753, Until 08/09/24 at 1402, Patient preference for lesser PRN pain meds [...] patient cannot tolerate oral intake $ Given 08/09/2024 12:27 PM CDT 0.2 mg $ Given 08/09/2024 6:18 AM CDT 0.2 mg $ Given 08/09/2024 12:19 AM CDT 0.2 mg HYDROmorphone (Dilaudid) injection 0.4 mg 0.4 mg, Intravenous, EVERY 4 HOURS PRN, Severe Pain, Starting on 07/25/24 at 2226, Until Tu07/27/24 at 2258, Patient preference for lesser PRN pain meds [...] patient cannot tolerate oral intake $ Given 07/27/2024 6:48 P M CDT 0.4 mg $ Given 07/27/2024 12:08 AM CDT 0.4 mg $ Given 07/26/2024 5:42 PM CDT 0.4 mg HYDROmorphone (Dilaudid) injection 0.4 mg 0.4 mg, Intravenous, EVERY 4 HOURS PRN, Severe Pain, Starting on 08/06/24 at 1105, Until 08/07/24 at 0753, Patient preference for lesser PRN pain meds [...] patient cannot tolerate oral intake $ Given 08/07/2024 6:25 A M CDT 0.4 mg $ Given 08/07/2024 2:09 AM CDT 0.4 mg $ Given 08/06/2024 9:15 PM CDT 0.4 mg HYDROmorphone (Dilaudid) injection 0.5 mg 0.5 mg, Intravenous, EVERY 10 MIN PRN, Severe Pain, 4 doses, Starting on Fri07/27/24 at 0844, Until Fri07/27/24 at 1408, Maximum total of 4 doses If patient reaches max total dose, please consult anesthesiologist prior to further administration of pain meds. Hold pain meds if there are signs of hypoventilation. Patient preference for lesser PRN pain meds [...] oral first unless patient cannot tolerate oral intake, PACU $ Given 07/27/2024 11:57 AM CDT 0.25 mg HYDROmorphone (Dilaudid) injection 0.6 mg 0.6 mg, Intravenous, EVERY 4 HOURS PRN, Severe Pain, Starting on Fri07/27/24 at 2257, Until Fri08/06/24 at 1105, Patient preference for lesser PRN pain meds [...] patient cannot tolerate oral intake $ Given 08/06/2024 1:12 AM CDT 0.6 mg $ Given 08/05/2024 7:59 PM CDT 0.6 mg $ Given 08/05/2024 1:24 PM CDT 0.6 mg insulin aspart (NovoLOG) pen 0-6 Units 0-6 Units, Subcutaneous, PRN, PACU corrective insulin, 2 doses, Starting on Fri07/27/24 at 1031, Until Fri07/27/24 at 1408, BG (mg/dL)? Corrective Action LESS than 70? follow Hypoglycemic guidelines 70-180? NO Correction insulin 181-220? GIVE 2 units of insulin 221-260? GIVE 3 units of insulin 261-300? GIVE 4 units of insulin 301-350? GIVE 5 units of insulin Greater than 350? GIVE 6 units of insulin and notify physician Recheck blood glucose 30-60 minutes after administration and repeat dose per above sliding scale if necessary. Contact anesthesia if a second dose is administered, PACU $ Given 07/27/2024 11:04 AM CDT 3 Units Abdominal Tissue iopamidol (Isovue 370) 76 % contrast Intravenous, CONTRAST ONCE, Starting on Fri07/27/24 at 1219, Until Blue 07/29/24 at 1218 $ Given - Contrast 07/27/2024 12:49 PM CDT 100 mL iopamidol (Isovue 370) 76 % contrast Intravenous, CONTRAST ONCE, Starting on Fri07/28/24 at 1337, Until Fri07/30/24 at 1336 $ Given - Contrast 07/28/2024 2:09 PM CDT 100 mL lidocaine (Xylocaine) 1 % injection Subcutaneous, ONCE PRN, Starting on Fri08/06/24 at 1151, Until Fri08/06/24 at 1151, Intra-op $ Given 08/06/2024 11:51 AM CDT 10 mL Other see comments lisinopril (Prinivil; Zestril) tablet 20 mg 20 mg, Oral, DAILY, First dose on Fri07/26/24 at 0900, Until Discontinued $ Given 08/06/2024 8:21 AM CDT 20 mg $ Given 08/05/2024 8:45 AM CDT 20 mg $ Given 08/04/2024 9:49 AM CDT 20 mg midazolam (Versed) injection Intravenous, ONCE PRN, Starting on Fri08/06/24 at 1150, Until Fri08/06/24 at 1150, Intra-op $ Given 08/06/2024 11:50 AM CDT 1 mg ondansetron (Zofran) injection 4 mg 4 mg, Intravenous, ONCE, 1 dose, On Fri07/27/24 at 1500, Administer over 2 to 5 minutes. $ Given 07/27/2024 5:05 PM CDT 4 mg oxyCODONE (immediate release) (Roxicodone) tablet 10 mg 10 mg, Oral, EVERY 4 HOURS PRN, Moderate Pain, Starting on Blue 07/29/24 at 1246, Until Fri08/09/24 at 1402, Patient preference for lesser PRN pain meds [...] patient cannot tolerate oral intake $ Given 08/09/2024 8:31 AM CD T 10 mg $ Given 08/08/2024 8:47 PM CDT 10 mg $ Given 08/06/2024 5:19 PM CDT 10 mg oxyCODONE (immediate release) (Roxicodone) tablet 5 mg 5 mg, Oral, EVERY 4 HOURS PRN, Moderate Pain, Starting on Fri07/25/24 at 2226, Until Fri07/27/24 at 2258, Patient preference for lesser PRN pain meds [...] patient cannot tolerate oral intake $ Given 07/27/2024 9:48 PM CDT 5 mg $ Given 07/26/2024 8:22 PM CDT 5 mg $ Given 07/26/2024 3:53 PM CDT 5 mg oxyCODONE (immediate release) (Roxicodone) tablet 5 mg 5 mg, Oral, EVERY 3 HOURS PRN, Moderate Pain, Starting on Fri07/27/24 at 2300, Until Fri07/29/24 at 1109, Patient preference for lesser PRN pain meds [...] patient cannot tolerate oral intake $ Given 07/29/2024 4:50 AM CDT 5 mg $ Given 07/28/2024 2:58 AM CDT 5 mg perflutren lipid microsphere (Definity) injection 0.5 mL 0.5 mL, Intravenous, INTRA-PROCEDURE MULTIPLE, Starting on Fri07/28/24 at 0835, Until Fri07/28/24 at 1234, For Echo Procedure - Per Protocol Give slowly Shake well before using. $ Given 07/28/2024 8:36 AM CDT 0.5 mL polyethylene glycol 3350 (Miralax) packet 17 g 17 g, Oral, DAILY, First dose on Fri08/06/24 at 1800, Until Discontinued, Mix in 8 ounces of water, juice, soda, coffee or tea prior to administration renal vitamin (Dialyvite) tablet 1 tablet 1 tablet, Oral, DAILY, First dose on Fri07/26/24 at 0900, Until Discontinued $ Given 08/09/2024 8:28 AM CDT 1 tablet $ Given 08/08/2024 9:24 AM CDT 1 tablet $ Given 08/07/2024 8:41 AM CDT 1 tablet sevelamer carbonate (Renvela) tablet 1,600 mg 1,600 mg, Oral, 3 TIMES DAILY WITH MEALS, First dose (after last modification) on Fri07/30/24 at 1200, Until Discontinued $ Given 08/09/2024 12:27 PM CDT 1,600 mg $ Given 08/09/2024 8:28 AM CDT 1,600 mg $ Given 08/08/2024 5:46 PM CDT 1,600 mg sevelamer carbonate (Renvela) tablet 800 mg 800 mg, Oral, 3 TIMES DAILY WITH MEALS, First dose on Fri07/26/24 at 0800, Until Discontinued $ Given 07/29/2024 6:24 PM CDT 800 mg $ Given 07/29/2024 9:43 AM CDT 800 mg $ Given 07/28/2024 6:14 PM CDT 800 mg sodium zirconium cyclosilicate (Lokelma) packet 10 g 10 g, Oral, DAILY, 3 doses, First dose on Fri07/30/24 at 1100, Last dose on Fri08/01/24 at 1300, Empty entire contents of the packet(s) into a glass with greater than or equal to 3 tablespoons (45 mL) of water. Stir well and drink immediately; if powder remains in the glass, add water, stir and drink immediately; repeat until no powder remains. Administer other oral meds at least 2 hours before or 2 hours after $ Given 07/30/2024 10:24 AM CDT 10 g vancomycin (Vancocin) 500 mg in 0.9% NaCl IV 100 mL IVPB 500 mg, at 200 mL/hr, Intravenous, ONCE, 1 dose, On Blue 07/29/24 at 1300, Indication for anti-infective therapy: Documented infection, Site of anti-infective therapy: Blood $ New Bag/Syringe 07/29/2024 1:28 PM CDT 500 mg 200 mL/hr vancomycin (Vancocin) 500 mg in 0.9% NaCl IV 100 mL IVPB 500 mg, at 200 mL/hr, Intravenous, ONCE, 1 dose, On 07/31/24 at 1700, Indication for anti-infective therapy: Documented infection, Site of anti-infective therapy: Blood, Bone/Joint $ New Bag/Syringe 07/31/2024 5:33 PM CDT 500 mg 200 mL/hr vancomycin (Vancocin) 500 mg in 0.9% NaCl IV 100 mL IVPB 500 mg, at 200 mL/hr, Intravenous, EVERY , AND FRI, First dose on Fri08/03/24 at 1700, Until Discontinued, Please administer after HD on HD days. If patient does not receive HD please call central pharmacy. , Indication for anti-infective therapy: Documented infection, Site of anti-infective therapy: Blood, Bone/Joint $ New Bag/Syringe 08/03/2024 6:31 PM CDT 500 mg 200 mL/hr vancomycin (Vancocin) 750 mg in 0.9% NaCl IV 250 mL IVPB 750 mg, at 333.33 mL/hr, Intravenous, EVERY , AND FRI, First dose (after last modification) on Fri08/05/24 at 1700, Until Discontinued, Please administer after HD on HD days. If patient does not receive HD please call central pharmacy. , Indication for anti-infective therapy: Documented infection, Site of anti-infective therapy: Blood, Bone/Joint $ New Bag/Syringe 08/07/2024 6:54 PM CDT 750 mg 333.33 mL/hr vancomycin (Vancocin) 750 mg in 0.9% NaCl IV 250 mL IVPB 750 mg, at 333.33 mL/hr, Intravenous, ONCE, 1 dose, On Fri08/06/24 at 0715, Please administer dose MONICA as ordered dose on 08/05 was not administered, Indication for anti-infective therapy: Documented infection, Site of anti-infective therapy: Blood $ New Bag/Syringe 08/06/2024 8:10 AM CDT 750 mg 333.33 mL/hr vancomycin (Vancocin) IV dose per pharmacy Does not apply, DIRECTED, Starting on 07/25/24 at 2245, Until 08/09/24 at 1402, Pharmacy will write all orders for vancomycin including dosages and when to draw levels. (IF DOSE IS DELAYED, CALL PHARMACY TO ADJUST TIMES. DO NOT GO BACK TO ORIGINAL SCHEDULE), Indication for anti-infective therapy: Suspected infection, Site of anti-infective therapy: Bone/Joint vitamin D3 (Cholecaciferol) tablet 5,000 Units 5,000 Units, Oral, DAILY, First dose on 07/31/24 at 0900, Until Discontinued, 5000 units = 125 mcg $ Given 08/09/2024 8:28 AM CDT 5,000 Units $ Given 08/08/2024 9:24 AM CDT 5,000 Units $ Given 08/07/2024 8:42 AM CDT 5,000 Units documented in this encounter Active and Recently Administered Medications Times are shown in CDT. Scheduled Medication Order 08/07/2024 08/08/2024 08/09/2024 0.9% NaCl injection 3 mL(Linked Group 1) 3 mL, Intracatheter, EVERY 8 HOURS, First dose on Fri07/25/24 at 2230, Until Discontinued, Flush peripheral IV catheter with 3 mL of normal saline every 8 hours. 0624 ($ Given - Provider: Lenin Fang RN)1321 ($ Given - Provider: Theresa Preston RN)2025 ($ Given - Provider: Lenin Fang RN) 0627 ($ Given - Provider: Lenin Fang RN)1344 ($ Given - Provider: Willie Garcia RN)2046 ($ Given - Provider: Lenin Fang RN) 0618 ($ Given - Provider: Lenin Fang RN) ammonium lactate (Lac-Hydrin) 12 % lotion Topical, 2 TIMES DAILY, First dose on Fri07/28/24 at 1130, Until Discontinued, Apply to right lower extremity 0842 ($ Given - Provider: Theresa Preston RN)2025 ($ Given - Provider: Lenin Fang RN) 0925 ($ Given - Provider: Willie Garcia, JIMMIE)2047 ($ Given - Provider: Lenin Fang RN) 0901 (Not Administered - Provider: Willie Garcia RN - Reason: Refused-Patient) apixaban (Eliquis) tablet 10 mg(Linked Group 2) 10 mg, Oral, 2 TIMES DAILY, 14 doses, First dose on Fri08/06/24 at 1445, Last dose on Fri08/12/24 at 2100 0841 ($ Given - Provider: Theresa Preston RN)2030 ($ Given - Provider: Lenin Fang RN) 0923 ($ Given - Provider: Willie Garcia RN)2046 ($ Given - Provider: Lenin Fang RN) 0828 ($ Given - Provider: Willie Garcia RN) apixaban (Eliquis) tablet 5 mg(Linked Group 2) 5 mg, Oral, 2 TIMES DAILY, First dose on Fri08/13/24 at 0900, Until Discontinued carvedilol (Coreg) tablet 3.125 mg 3.125 mg, Oral, 2 TIMES DAILY WITH MEALS, First dose (after last modification) on 08/07/24 at 0830, Until Discontinued, Take with food 0842 ($ Given - Provider: Theresa Preston RN)1854 ($ Given - Provider: Theresa Preston RN) 0923 ($ Given - Provider: Willie Garcia, RN)1746 ($ Given - Provider: Willie Garcia, RN) 0828 ($ Given - Provider: Willie Garcia RN) epoetin carlin-EPBX (Retacrit) 5,000 unit injection 5,000 Units, Intravenous, DIALYSIS EVERY FRI, FRI & SAT, First dose on Fri07/27/24 at 1700, Until Discontinued 1550 ($ Given - Provider: Ashleigh Saul RN) ferrous sulfate tablet 325 mg 325 mg, Oral, DAILY WITH BREAKFAST, First dose on Fri07/26/24 at 0800, Until Discontinued, Take with food. Do not take within 2 hours of other medications. 0842 ($ Given - Provider: Theresa Preston RN) 0924 ($ Given - Provider: Willie Garcia RN) 0829 ($ Given - Provider: Willie Garcia, JIMMIE) gabapentin (Neurontin) capsule 300 mg 300 mg, Oral, EVERY FRI, FRI AND FRI, First dose on Fri07/26/24 at 1700, Until Discontinued heparin injection 1,000 Units (COMPLETED)(Linked Group 3) 1,000 Units, Intracatheter, ONCE DIALYSIS, 1 dose, On 08/07/24 at 0700, FOR USE IN DIALYSIS ONLY 1427 ($ Given - Provider: Ashleigh Saul RN) heparin injection 500 Units ()(Linked Group 3) 500 Units, Intracatheter, EVERY HOUR, 6 doses, First dose on 08/07/24 at 0700, Last dose on 08/07/24 at 1200, FOR USE IN DIALYSIS ONLY 0700 (Due)0800 (Due)1000 (Due)1100 (Due)1200 (Due)1527 ($ Given - Provider: Ashleigh Saul, JIMMIE) polyethylene glycol 3350 (Miralax) packet 17 g 17 g, Oral, DAILY, First dose on Fri08/06/24 at 1800, Until Discontinued, Mix in 8 ounces of water, juice, soda, coffee or tea prior to administration 0843 (Not Administered - Provider: Theresa Preston RN - Reason: Refused-Patient) 0924 (Not Administered - Provider: Willie Garcia RN - Reason: Refused-Patient) 0901 (Not Administered - Provider: Willie Garcia RN - Reason: Refused-Patient) renal vitamin (Dialyvite) tablet 1 tablet 1 tablet, Oral, DAILY, First dose on Fri07/26/24 at 0900, Until Discontinued 0841 ($ Given - Provider: Theresa Preston RN) 0924 ($ Given - Provider: Willie Garcia RN) 0828 ($ Given - Provider: Willie Garcia RN) sevelamer carbonate (Renvela) tablet 1,600 mg 1,600 mg, Oral, 3 TIMES DAILY WITH MEALS, First dose (after last modification) on Fri07/30/24 at 1200, Until Discontinued 0841 ($ Given - Provider: Theresa Preston RN)1322 ($ Given - Provider: Theresa Preston RN)1854 ($ Given - Provider: Theresa Preston RN) 0924 ($ Given - Provider: Willie Garcia RN)1205 (Not Administered - Provider: Willie Garcia RN - Reason: Refused-Patient)1746 ($ Given - Provider: Willie Garcia RN) 0828 ($ Given - Provider: Willie Garcia RN)1227 ($ Given - Provider: Willie Garcia RN) vancomycin (Vancocin) 750 mg in 0.9% NaCl IV 250 mL IVPB 750 mg, at 333.33 mL/hr, Intravenous, EVERY , AND FRI, First dose (after last modification) on Fri08/05/24 at 1700, Until Discontinued, Please administer after HD on HD days. If patient does not receive HD please call central pharmacy. , Indication for anti-infective therapy: Documented infection, Site of anti-infective therapy: Blood, Bone/Joint 185 ($ New Bag/Syringe - Provider: Theresa Preston RN)1955 (Stopped - Provider: Lenin Fang RN) vancomycin (Vancocin) IV dose per pharmacy Does not apply, DIRECTED, Starting on Fri07/25/24 at 2245, Until Fri08/09/24 at 1402, Pharmacy will write all orders for vancomycin including dosages and when to draw levels. (IF DOSE IS DELAYED, CALL PHARMACY TO ADJUST TIMES. DO NOT GO BACK TO ORIGINAL SCHEDULE), Indication for anti-infective therapy: Suspected infection, Site of anti-infective therapy: Bone/Joint vitamin D3 (Cholecaciferol) tablet 5,000 Units 5,000 Units, Oral, DAILY, First dose on 07/31/24 at 0900, Until Discontinued, 5000 units = 125 mcg 0842 ($ Given - Provider: Theresa Preston RN) 0924 ($ Given - Provider: Willie Garcia, RN) 0828 ($ Given - Provider: Willie Garcia RN) PRN Medication Order 08/07/2024 08/08/2024 08/09/2024 0.9% NaCl injection 1-10 mL(Linked Group 1) 1-10 mL, Intracatheter, PRN, Other, peripheral line flush, Starting on Fri07/25/24 at 2159, Until 08/09/24 at 1402, Flush peripheral IV catheter with 1-10 mL of normal saline before and after medications and prn to clear blood from the line or to verify patency. 0.9% NaCl injection 10-40 mL 10-40 mL, Intravenous, PRN, Other, mid-line flush, Starting on Fri08/03/24 at 1713, Until 08/09/24 at 1402, Flush each lumen of mid-line with 10ml NS IVP before and after medication/solution administration, before and after blood product administration, when obtaining blood sample, discard 5-10ml blood, then obtain sample. Upon completion, pulse flush with 20ml sterile NS IVP and PRN to determine patency. acetaminophen (Tylenol) tablet 650 mg 650 mg, Oral, EVERY 6 HOURS PRN, Mild Pain, Fever, Starting on Fri07/25/24 at 2225, Until 08/09/24 at 1402, Patient preference for lesser PRN pain meds [...] first unless patient cannot tolerate oral intake dextrose 10 % IV bolus(Linked Group 4) 12.5 g, at 468.75 mL/hr, Intravenous, PRN, Other, Bedside Glucose less than 70 mg/dL -If NOT able to eat and/or NPO and with IV Access, Starting on 07/25/24 at 2246, Until 08/09/24 at 1402, If NOT able to eat and/or NPO [...] mg/dl. NOTIFY PROVIDER OF HYPOGLYCEMIC EVENT. dextrose 10 % IV bolus(Linked Group 4) 25 g, at 937.5 mL/hr, Intravenous, PRN, Other, Bedside Glucose less than 70 mg/dL -If NOT able to eat and/or NPO and with IV Access, Starting on 07/25/24 at 2246, Until 08/09/24 at 1402, If NOT able to eat and/or NPO [...] EVENT. glucagon (Glucagen) injection 1 mg(Linked Group 4) 1 mg, Subcutaneous, PRN, Bedside Glucose less than 70 mg/dL - If NOT able to eat and/or NPO and withOUT IV Access, Starting on 07/25/24 at 2246, Until 08/09/24 at 1402, If NOT able to eat and/or NPO [...] Glucose less than 70 mg/dL, Starting on Fri07/25/24 at 2246, Until 08/09/24 at 1402, If able to take oral medications: For [...] for choices) NOTIFY PROVIDER OF HYPOGLYCEMIC EVENT. heparin injection 2,800 Units 2,800 Units, Intracatheter, DIALYSIS PRN, Post Hemodialysis Catheter Dwell, Starting on Fri08/03/24 at 1225, Until 08/09/24 at 1402, Dwell 1.4 mL in red lumen and 1.4 mL in blue lumen of hemodialysis catheter post hemodialysis treatment HYDROmorphone (Dilaudid) injection 0.2 mg 0.2 mg, Intravenous, EVERY 4 HOURS PRN, Severe Pain, Starting on 08/07/24 at 0753, Until 08/09/24 at 1402, Patient preference for lesser PRN pain meds [...] first unless patient cannot tolerate oral intake 1321 ($ Given - Provider: Theresa Preston RN)2025 ($ Given - Provider: Lenin Fang RN) 0123 ($ Given - Provider: Lenin Fang RN)0924 ($ Given - Provider: Willie Garcia RN)1344 ($ Given - Provider: Willie Garcia RN)1746 ($ Given - Provider: Willie Garcia RN) 0019 ($ Given - Provider: Lenin Fang RN)0618 ($ Given - Provider: Lenin Fang RN)1227 ($ Given - Provider: Willie Garcia RN) HYDROmorphone (Dilaudid) injection 0.4 mg (CANCELED) 0.4 mg, Intravenous, EVERY 4 HOURS PRN, Severe Pain, Starting on 08/06/24 at 1105, Until 08/07/24 at 0753, Patient preference for lesser PRN pain meds [...] first unless patient cannot tolerate oral intake 0209 ($ Given - Provider: Lenin Fang RN)0625 ($ Given - Provider: Lenin Fang RN) oxyCODONE (immediate release) (Roxicodone) tablet 10 mg 10 mg, Oral, EVERY 4 HOURS PRN, Moderate Pain, Starting on Blue 07/29/24 at 1246, Until 08/09/24 at 1402, Patient preference for lesser PRN pain meds [...] first unless patient cannot tolerate oral intake 204 ($ Given - Provider: Lenin Fang, RN) 0831 ($ Given - Provider: Willie Garcia RN) Linked Groups Order Group 1: SALINE LOCK, INSERT AND MAINTAIN (CANCELED) Routine, CONTINUOUS, Starting on 07/25/24 at 2200, Until Specified, New collection And 0.9% NaCl injection 3 mLJump to med 3 mL, Intracatheter, EVERY 8 HOURS, First dose on Fri07/25/24 at 2230, Until Discontinued, Flush peripheral IV catheter with 3 mL of normal saline every 8 hours. And 0.9% NaCl injection 1-10 mLJump to med 1-10 mL, Intracatheter, PRN, Other, peripheral line flush, Starting on Fri07/25/24 at 2159, Until Fri08/09/24 at 1402, Flush peripheral IV catheter with 1-10 mL of normal saline before and after medications and prn to clear blood from the line or to verify patency. Group 2: apixaban (Eliquis) tablet 10 mgJump to med 10 mg, Oral, 2 TIMES DAILY, 14 doses, First dose on Fri08/06/24 at 1445, Last dose on Fri08/12/24 at 2100 Followed by apixaban (Eliquis) tablet 5 mgJump to med 5 mg, Oral, 2 TIMES DAILY, First dose on Fri08/13/24 at 0900, Until Discontinued Group 3: heparin injection 1,000 Units (COMPLETED)Jump to med 1,000 Units, Intracatheter, ONCE DIALYSIS, 1 dose, On 08/07/24 at 0700, FOR USE IN DIALYSIS ONLY And heparin injection 500 Units ()Jump to med 500 Units, Intracatheter, EVERY HOUR, 6 doses, First dose on 08/07/24 at 0700, Last dose on [facility] 08/07/24 at 1200, FOR USE IN DIALYSIS ONLY Group 4: dextrose 10 % IV bolusJump to med 12.5 g, at 468.75 mL/hr, Intravenous, PRN, Other, Bedside Glucose less than 70 mg/dL -If NOT able to eat and/or NPO and with IV Access, Starting on Fri07/25/24 at 2246, Until Fri08/09/24 at 1402, If NOT able to eat and/or NPO [...] NOTIFY PROVIDER OF HYPOGLYCEMIC EVENT. Or dextrose 10 % IV bolusJump to med 25 g, at 937.5 mL/hr, Intravenous, PRN, Other, Bedside Glucose less than 70 mg/dL -If NOT able to eat and/or NPO and with IV Access, Starting on 07/25/24 at 2246, Until 08/09/24 at 1402, If NOT able to eat and/or NPO [...] NPO and withOUT IV Access, Starting on 07/25/24 at 2246, Until 08/09/24 at 1402, If NOT able to eat and/or NPO and NO IV Access: For Bedside glucose 54- 69 mg/dL ? 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
--- OUTSIDE RECORDS SUMMARY | 2024-11-17 03:00 | XMS_ITS | Encounter Summary ---
Author Organization [facility] Health Address [address] [place] [address] Care Team Providers Care Hall Clerk Name Role Phone Cherise Patrick PA-C Primary Care Provider Reason for Visit * Reason Onset Date Comments General 07/25/2024 OSH Transfer Encounter Details Date Type Department Care Team (Late st Contact Info) Description 07/25/2024 Telephone [facility] INTERNAL MED [address] [place] [address] Ralph Burt MD [address] [place] [address] General (OSH Transfer) Social History Tobacco Use Types Packs/Day Years [...] or have serious hearing difficult y? No 05/23/2024 Is person blind or have serious difficulty seein g? Yes 05/23/2024 Does person have serious dif ficulty walking/climbing stairs? Yes 05/23/2024 Does person have difficulty dressing/bathing? Ye s 05/23/2024 Does person have difficulty doing errands alone? Yes 05/23/2024 Cognitive Status Response Date of Assessm ent Does person have difficulty concentrating/remembering/making decisions? No 05/23/2024 documented as of this encounter Miscellaneous Notes * Telephone Encounter - Ralph Burt MD - 07/25/2024 7:10 PM CDT [facility] Internal Medicine Outside Hospital Transfer Call 07/25/2024 7:10 PM Patient Name: Gay Canales : 1990 Outside Hospital: Reason for Transfer: Medical Complexity Brief History (include pertinent labs, imaging, consultations): Pt with history of Sickle Cell Disease, ESRD, multiple bouts of septic arthritis presenting with dyspnea, shoulder pain. Found to have bilateral pneumonia, R shoulder effusion (tapped, results pending). No evidence of acute sickle crisis. Pt started on antibiotics, cultures pending. Consulting Service at [facility] aware? (If blank, NA): NA Suggested needs on arrival: - Blood cultures, antibiotics - Will need to follow-up on OSH joint culture (R shoulder) - Repeat imaging to evaluate pneumonia *If patient awaiting bed for longer than 24 hours, an update on patients condition will be requested prior to transfer* Ralph Burt MD documented in this encounter Plan of Treatment Upcoming Encounters Date Type Department Care Team (Late st Contact Info) Description 11/22/2024 1:30 PM SOCIAL SCIENCE TEACHER Office Visit [facility] - Infectious Disease [address] [place] [address], [facility] [place] [address] Kash Ha MD [address] [place] [address] documented as of this encounter Visit Diagnoses Not on filedocumented in this encounter Additional Health Concerns Infection Onset Date Last Indicated Resolved Time MRSA Hx 05/24/2024 05/24/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
--- OUTSIDE RECORDS SUMMARY | 2024-11-17 03:00 | XMS_ITS | Encounter Summary ---
Author Organization [facility] Health Address [address] [facility] [place] [address] Care Team Providers Care Vp Corporate Development Name Role Phone Cherise Patrick PA-C Primary Care Provider Reason for Visit * Reason Onset Date Comments Appointment 06/21/2024 Encounter Details Date Type Department Care Team (Late st Contact Info) Description 06/21/2024 Telephone [facility] - Infectious Disease [address] [place] [phone] Roxanna Roth PA-C [address] [place] [address] Appointment Social History Tobacco Use Types Packs/Day Years Used Date Smoking Tobacco: Former Cigarettes S tarted: 2011 Smokeless Tobacco: Never Comments:Quit 4-5 months aft er starting Alcohol Use Standard Drinks/Week Comments Not Currently 0 (1 standard drink = 0.6 oz pur e alcohol) Occassionally AUDIT-C Answer Date Recorded Q1: How often do you have a drink containing alcohol? Never 05/23/2024 Q2: How many drinks containi ng alcohol do you have on a typical day when you are drinking? Patient does not drink Q3: How often do you have si x or more drinks on one occasion? Never 05/23/2024 Overall Financial Resource Strain (CARDIA) Answe r Date Recorded How hard is it for you to pa y for the very basics like food, housing, medical care, and heating? Not hard at all 05/23/2024 PHQ-2 Answer Date Recorded PHQ2 TOTAL SCORE 0 06/10/2023 [facility] [place] [facility] - Occupational Stress Questionnaire Answer Date Recorded Do you feel stress - tense, restless, nervous, or anxious, or unable to sleep at night because your mind is troubled all the time - these days? Not at all 05/23/2024 Hunger Vital Sign Answer Date Recorded Within the past 12 months, y ou worried that your food would run out before you got the money to buy more. Never true 05/23/20 24 Within the past 12 months, t he food you bought just didn't last and you didn't have money to get more. Never true 05/23/2024 PRAPARE - Transportation Answer Date Re corded In the past 12 months, has l ack of transportation kept you from medical appointments or from getting medications? No 05/04 In the past 12 months, has l ack of transportation kept you from meetings, work, or from getting things needed for daily living? No 05/23/2024 Housing Stability Vital Sign Answer Ibrahima e Recorded In the last 12 months, was t here a time when you were not able to pay the mortgage or rent on time? No 05/23/2024 In the last 12 months, how many places have you lived? 7 05/23/2024 In the last 12 months, was t here a time when you did not have a steady place to sleep or slept in a nursing home (including now)? No 05/23/2024 Sex and Gender Information Value Date Recorded [...] * Telephone Encounter - Brittney Hurtado - 06/21/2024 8:54 AM CDT Pt calling in regards to she wont be able to make her apt tomorrow Jun 22 due to she has dialysis that day Pt has an apt for [facility]AT She needs to reschedule please call her helper Mona or leave a message as well Mona's # [phone] Pt call back # [phone] documented in this encounter Plan of Treatment Upcoming Encounters Date Type Department Care Team (Late st Contact Info) Description 11/22/2024 1:30 PM INFORMATION RESOURCES MANAGER Office Visit [facility] - Infectious Disease [address] [place] [address], [facility] [place] [address] Kash Ha MD [address] [place] [id number] documented as of this encounter Visit Diagnoses Not on filedocumented in this encounter Additional Health Concerns Infection Onset Date Last Indicated Resolved Time MRSA Hx 05/24/2024 05/24/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
--- OUTSIDE RECORDS SUMMARY | 2024-11-17 03:00 | XMS_ITS | Encounter Summary ---
Author Organization [facility] [employer] Address [address] [place] [address] Care Team Providers Care Wired Sweatband Cutter Name Role Phone Cherise Marcelo PA-C Primary Care Provider [phone] Reason for Visit * Auth/Cert (Routine) Specialty Diagnoses / Procedures Referred By Jany t Referred To Contact Diagnoses Pneumonia, Septic Arthritis Referral ID Status Reason Start Date Expiration Date Visits Re quested Visits Authorized [id number] 1 1 Encounter Details Date Type Department Care Team (Late st Contact Info) Description 07/27/2024 7:05 AM CDT - 07/27/2024 9:25 AM CDT Surgery [facility] [address] [place] [address] Tao Chapman MD [address] [place] [address] [place] [address] RIGHT SHOULDER INCISION AND DEBRIDEMENT Surgery Details Date/Time Status Location OR Service Patient Class Case Class Case Type Trauma Case? 07/27/2024 7:05 AM Posted [facility] OR OR 10 Orthopedics Inpatient Work Ins >24 Hrs to 5 Days Panel 1 Procedure LRB Anes Op Region Wound Class Comments RIGHT SHOULDER INCISION AND DEBRIDEMENT Right General Dirty or Infected Surgeon Surgeon Role Service Panel Tao Chapman MD Primary Orthopedics 1 Charlie Sutherland MD Resident - Assisting Orthopedics 1 documented in this encounter Social History Tobacco Use Types Packs/Day Years [...] Date Recorded PHQ2 TOTAL SCORE 0 06/10/2023 [facility] - Occupational Stress [...] place to sleep or slept in a skilled nursing (including now)? No 07/26/2024 Sex and Gender Information Value Date Recorded Sex Assigned at Not on file Gender Identity Not on file Sexual Orientation Not on file documented as of this encounter Last Filed Vital Signs Vital Sign Reading Time Taken Comments Blood Pressure 104/62 07/27/2024 6:45 AM CDT Pulse 79 07/27/2024 6:45 AM CDT Temperature 37.7 ??C (99.8 ??F) 07/27/2024 6:30 AM CDT Respiratory Rate 20 07/27/2024 6:45 AM CDT Oxygen Saturation 92% 07/27/2024 6:45 AM CDT Inhaled Oxygen Concentration - - Weight 113.5 kg (250 lb 3.2 oz) 07/26/2024 7:52 PM CDT Height 170.2 cm (5' 7 [...] of this encounter Discharge Summaries * Harpreet Katz DO - 08/09/2024 10:32 AM CDT HOSPITALIST DISCHARGE [...] to methicillin resistant Staphylococcus aureus (MRSA) (HCC) Dyslipidemia Obesity, Class II, BMI 35-39.9 Hyponatremia [...] prior hx of infectious arthritis presenting from [facility] for 3 day history of right [...] infectious arthritis presenting as OSH transfer from [facility] for 3 day historyof right shoulder pain. At [facility] (OSH) labs revealed WBC 12.9k, Hb 10.3, plt 255; ESR 90, CRP 29.4; CMP remarkable for Na 131. Synovial fluid of R shoulder showing 92% neutrophils. Azithro, cefepime, vancomycin started at OSH. OSH imaging notable for bilateral PNA and right shoulder pyogenic arthritis, for which she was transferred to [facility] on 07/25. ID consulted. Nephrology consulted for [...] bases. > Dictated by Steve Haney DO (residential tech). I, Arthur Avery MD have personally reviewed and interpreted this examination/study. > Interpreting Provider: Arthur Avery MD on 07/27/2024 5:19 PM XR Shoulder Right 2Vw or More Result Date: 07/26/2024 IMPRESSION: Osseous erosions of the humeral head and scapula, 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 Findings are further characterized outside hospital CT from 07/25/2024 ([facility]). No acute fracture or dislocation. Partially imaged airspace opacity in the setting of the right lung. Recommend attention to dedicated chest radiograph. > Interpreting Provider: Matt Maguire MD on 07/26/2024 4:28 PM RECENT/NOTABLE LABS: include pertinent positives Recent Labs Component Name 08/07/24 0547 12/02/22195408/25/22 0315 SODIUM - - 142 POTASSIUM 4.2 - [...] with morning and evening meal Rosi Menard, TAPPER HAND-CONCRETE PRECAST MOULDER FeroSul 325 (65 Fe) MG tablet Generic [...] FOR BLOOD GLUCOSE TESTING MD Tyron Ying RFEyeDjayda Reflect w/Device Kit Quantity Dispensed: 1 kit Use 1 kit 4 times daily USE METER TO CHECK BLOOD GLUCOSE FOUR TIMES DAILY Reasons: [id number] MD Tyron Ying Verjayda test strip [...] UNIT/ML pen Commonly known as: HumaLOG;ADMelog nystatin 310690 UNIT/GM powder Commonly known as: Mycostatin polyethylene glycol 3350 17 g packet Commonly known as: Miralax ALLERGIES: No Known Allergies DISCHARGE INSTRUCTIONS Contact information for after-discharge care Dialysis/Infusion [facility] [address] [place] [phone] ISOLATION PRECAUTIONS Contact. Isolation due to MRSA [...] not included. A Note From Your Doctors: . Leeroy Canales, You were admitted to the [...] with morning and evening meal Rosi Menard, TAPPER HAND-CONCRETE PRECAST MOULDER FeroSul 325 (65 Fe) MG tablet Generic [...] FOR BLOOD GLUCOSE TESTING Amanda Georges MD AlwaySupport[employer] Verio Reflect w/Device Kit Quantity Dispensed: 1 kit Use 1 kit 4 times daily USE METER TO CHECK BLOOD GLUCOSE FOUR TIMES DAILY Reasons: CALL AUSTYN BANEGAS [id number] Amanda Georges MD OneTouch Verio test strip Generic drug: blood glucose [...] UNIT/ML pen Commonly known as: HumaLOG;ADMelog nystatin 225343 UNIT/GM powder Commonly known as: Mycostatin polyethylene glycol 3350 17 g packet Commonly known as: Miralax If you have any questions about your medications, please be sure to ask the pharmacy when you pick up man your prescription. You may also call your primary provider to ask if you should be taking your medication. FOLLOW-UP: It is important that you follow-up with all appointments that have been made on your behalf. These appointments include: Future Appointments Friday August 23, 2024 Imaging: CT Chest W Contrast Friday August 23, 2024 Outpatient Referral: Ref to Orthopedics - [facility] Friday August 23, 2024 2:30 PM (Arrive by 2:15 PM) Appointment with Kash Ha at [facility] - Infectious Disease ([phone]) [address] [place] [phone] Sunday September 01, 2024 9:30 AM Appointment with Tao Chapman at [facility] - Orthopedics ([phone]) [address] [place] [phone] Sunday September 08, 2024 11:00 AM (Arrive by 10:45 AM) Appointment with Kash Ha at [facility] - Infectious Disease ([phone]) [address] [facility] [address] Once per Week Lab: C-REACTIVE PROTEIN Once [...] of discharge from the hospital by the room service food server regarding your follow up appointments, as listed [...] the nearest emergency room or call EMS (191). Regards, Internal Medicine Department [address] [address] Orthopaedic Trauma Surgery Patient Discharge Instructions Leeroy Canaels Orthopaedic Trauma Surgery was consulted for the [...] 2024 Outpatient Referral: Ref to Orthopedics - [facility] Friday August 23, 2024 2:30 PM (Arrive by 2:15 PM) Appointment with Kash Ha at [facility] - Infectious Disease ([phone]) [facility] [address] Sunday September 01, 2024 9:30 AM Appointment with Tao Chapman at [facility] Physician [facility] - Orthopedics ([phone]) [address] [facility] [address] Sunday September 08, 2024 11:00 AM (Arrive by 10:45 AM) Appointment with Kash Ha at [facility] - Infectious Disease ([phone]) [facility] [address] Once per Week Lab: C-REACTIVE PROTEIN Once per Week Lab: CBC WITH DIFFERENTIAL Once per Week Lab: COMPREHENSIVE METABOLIC PANEL Once per Week Lab: ERYTHROCYTE SEDIMENTATION RATE Once per Week Lab: VANCOMYCIN LEVEL TROUGH You can call the clinic to confirm, cancel, or reschedule as needed. If you have any questions or concerns please call before your visit. Office Schedulers: [phone], option 1 Activity: Activity as tolerated. No [...] mail, or fax it to our office ([phone]) in advance so itcan be completed in a timely manner before the necessary deadline. FMLA, disability, and work paperwork is completed each Friday by the Medical Certification Specialist. Also, the doctor is only in the office one day a week to sign the paperwork. Please contact our clinic at if you need to schedule or change an appointment or forany additional questions. After hours: [phone] - ask the blankbook stitching machine operator for the On-Call Ortho Resident For medical emergencies, please call 911. Follow up Contact Information: [facility] Orthopedic Surgery office contact information: [facility] Specialized Medicine ([facility] [place]) [facility], 1st [place] [address] Visit our website at [email or web address] for information about our practice and an interactive health encyclopedia. Please visit [employer] to access your health record, ask questions, request medication refills, and request appointments for non-urgent needs after you have configured your [employer] account. If you do not currently have access, please contact one of our staff members or call [phone]. documented in this encounter Medications at Time [...] of this encounter Progress Notes * Trinidad Holloway, PharmD - 08/09/2024 12:43 PM CDT DISCHARGE [...] Note Expected Discharge Date: 08/09/2024: Discharge Plan: JEAN spoke with the liasion for [facility], she stated that the medication was approved thought the insurance and it should be delivered to the out pt HD clinic for tomorrow. Patient is to go home [facility]. Transport has been scheduled for 1230 trip [place] is [phone] Family Support (Name and Phone): Extended Emergency Contact Information Primary Emergency Contact: Silvia Resendiz Mobile Relation: Mother Mend Worker needed? No Secondary Emergency Contact: GAYE BEAL Mobile Relation: Sister Mend Worker needed? No Transportation at Discharge: : READMISSION RISK SCORE is 24 at 11:41 AM 08/09/2024.: Name: Helen Alexandre RN * Khloe Lowery - 08/09/2024 11:24 AM CDT Spoke with Rowan at [facility] and she was made aware and added patient back to the schedule for tomorrow OP HD. Patient IVABX is to be delivered tomorrow . Khloe Lowery Kidney Navigator Office:[phone] Ascom: [phone] * Milagro Delcid, RD/LD - 08/09/2024 10:08 [...] prior hx of infectious arthritis presenting from [facility] for 3 day history of right [...] Pain affecting intake: No Estimated Needs: KCAL: 0279-7068 (30-35kcal/kg) Protein (g): 71-82 (1.3-1.5g/kg) Fluid (ml): [...] Truong DO - 08/09/2024 9:36 AM CDT [facility] Nephrology Consult Note Date of Admission: 07/30/2024 Date of Service: 07/26/2024 Consulting Service: Green Team Reason for Consult: ESRD Brief Hospital Course: Leeroy Canales is a 33 year old female w/ PMH significant for ESRD on HD TTS, HTN, HLD, T2DM (diagnosed age 17) c/b retinopathy w/ blindness, hx of RUE dvt, PVD s/p L BKA, HFpEF (70-75% 05/2023), who was transferred from [facility] 07/26/24 for R shoulder pain w/ concerns [...] has had vein mapping in past 06/16/24but 2/ smaller caliber veins unable to get fistula or graft per surgical eval at [facility] unable to locate records. Perm cath removed 07/28 2/2 MSSA bacteremia, persistent until 08/01 1st neg bcx, repeat bcx on 08/02 neg and prelim 08/03 bcx neg Interval hx: -no acute events overnight -discussed abx to be delivered to HD unit for tomorrow session Dialysis Center: [facility] Dialysis Days: TTS Date if last dialysis: sat 07/24/24 Access: R-IJ Permcath Dialysis Duration: 3 Hours 30 Minutes Cotton Ball Bagger: Dr Mak [facility] Medications: No current facility-administered medications for [...] further characterized outside hospital CT from 07/25/2024 ([facility]). No acute fracture or dislocation. Partially [...] 08/2022 #R glenohumeral joint sepsis: -nuc cell [id number] x 97% neutrophils, septic joint, orthopedic surgery [...] Katz DO - 08/08/2024 10:28 AM CDT [facility] HOSPITALIST PROGRESS NOTE Patient: Leeroy Canales Sex: [...] infectious arthritis presenting as OSH transfer from [facility] for 3 day historyof right shoulder pain. At [facility] (OSH) labs revealed WBC 12.9k, Hb 10.3, plt 255; ESR 90, CRP 29.4; CMP remarkable for Na 131. Synovial fluid of R shoulder showing 92% neutrophils. Azithro, cefepime, vancomycin started at OSH. OSH imaging notable for bilateral PNA and right shoulder pyogenic arthritis, for which she was transferred to [facility] on 07/25. ID consulted. S/p shoulder aspiration [...] Vital Signs: Vitals: 08/07/24 1730 08/07/24 1733 08/07/243 08/08/24 0921 BP: 134/93 139/91 138/89 137/77 Pulse: [...] heel associated with type 2 diabetes mellitus ([facility]) (POA: Yes) Anemia (POA: Yes) ESRD (end stage renal disease) ([facility]) (POA: Yes) Type 2 diabetes mellitus with [...] TIMES DAILY End Date/Time: 08/12/24 2100 See [facility] for full Linked Orders Report. 08/06/24 1445 08/13/24 0859 08/03/24 1227 heparin injection 2,800 Units 2,800 Units, Intracatheter, DIALYSIS PRN 08/03/24 1225 -- VTE Mechanical Prophylaxis Orders (From admission, onward) Ordered Start 07/25/242219 SEQUENTIAL COMPRESSION DEVICE (IMPLEMENT) CONTINUOUS Start Time: 07/25/242229 Order ID: [id number] Status: Sent 07/25/242229 Stress Ulcer PPX [x] None [] Famotidine [] PPI Fluids Electrolytes Nutrition [x] None [] IV maintenance fluids [] IV colloid infusions K~4.0 Mg~2.0 Phos~3.0 DIETARY NUTRITION SUPPLEMENTS ONCE DIET RENAL LDA Other Wound Plantar;Right (Active) Date/Time: 07/25/24 041 Present on admission?: Yes Orientation: Plantar;Right Number [...] prepped with: Chloraprep IV Catheter Size: 4 Citizen [place] Reason for placement... Number of days: 5 Hemodialysis Tunneled Catheter [facility] Medical 15.5 (Active) Placement Date/Time: 08/06/24 1158 Placed by: Fredi Aguillon MD Dialysis Tunneled Catheter Location: [facility] Hemodialysis Cath Orientation: Left Candy Wrapping Machine Operator/Model : Radario Medical Model: Duraflow 2 Reference Number: [id number] Lot Number: [id number]... Number of days: 1 Activity Level: Activity as tolerated Consults IP CONSULT TO WOUND NURSE IP CONSULT TO NUTRITIONAL SERV IP CONSULT TO NEPHROLOGY IP CONSULT TO ORTHOPEDICS IP CONSULT TO INFECTIOUS DISEASES IP CONSULT TO LICENSED INVESTMENT SALES ASSISTANT Disposition Inpatient anticipate dc in 24 hours, will need abx at HD; will follow up with CM team regarding this Code Status Full Code [facility] 08/08/2024 10:29 AM * Sanjay Garcia RN - 08/07/2024 9:30 PM CDT SITUATIONAL AWARENESS NOTE PATIENT'S NAME: Leeroy Canales BIRTHDATE: 1990 CODE STATUS: Full Code PRIMARY CONCERN FOR SITUATIONAL AWARENESS: Rapid Response within the past 48 hours OBSERVATIONS: Patient resting comfortably on evening rounds. VSS. No cocnerns brought forward. SPECIAL SERVICES SUPERVISOR remains available for any future needs. PLAN: [...] (immediate release) LAB: Recent Labs Component Name 08/07/2454608/06/2440108/05/2443008/04/2425308/03/24 0538 08/02/24 0804 08/01/24 0042 07/31/24 1720 [...] ) Recent Labs Component Name 08/07/2447 08/06/2440108/05/24203108/05/24 04308/04/24 0254 08/03/24 0538 BUN 33* 18 13 30* 19 37* CREATININE 6.99* 4.60* 3.42* 6.11* 4.50* 6.54* NA 138 135* 134* 138 137 136 CL 98 96* 97* 99 98 100 CO2 26 29 23 30* 28 25 CALCIUM 8.9 8.7 9.3 8.9 8.9 8.3* PHOS 5.9* 4.7 - 6.3* 4.4 6.1* Recent Labs Component Name 08/07/24 0547 08/06/24 0402 08/05/24 0431 08/04/24 0254 08/03/24 0538 05/25/24 0643 05/24/24 0625 02/22/24 [...] not displayed. Recent Labs Component Name 08/05/242031 QSH2DNC 27.2 ASSESSMENT: 1. ESRD on HD TTS [...] hypotension. Artie Aguillon MD Nephrology Attending * Rbo Cruz MD - 08/07/2024 2:33 PM CDT [...] Plt 468 Micro Blood cultures 07/29/2024 - 11/04 positive [...] awaiting final ID plan. Rob Cruz MD [facility] Medicine 08/07/2024 Feel free to text page me through [employer], login [employer] Current Meds 0.9% NaCl 3 mL Intracatheter [...] No concerns brought forward during evening rounds. SPECIAL SERVICES SUPERVISOR remains available for any future needs. PLAN: [...] bed side this PM, looks comfortable, received [facility] TDC this AM Brief Hx: ESRD [...] Oral, TID WC vancomycin, 750 mg, Intravenous, TU, THUR & SAT vancomycin (VANCOCIN) IV [...] this interval not displayed. Component Name 08/05/242031 BHO3XUR 27.2 A&P: ESRD on HD TTS HD tomorrow UF 1-1.5L as tolerated Anemia of CKD NEELAM 5K on HD CKD- BMD On renvella 14112to tid C/w Vit D supplements Aneta Lopez [...] random 14.6 Micro Blood cultures 07/29/2024 - 1/2 positive for MRSA 07/30/2024 - NGTD 07/31/2024 - 2 positive for staph hominis 08/01/2024 - NGTD [...] Feel free to text page me through [employer], login [email or web address] Current Meds 0.9% NaCl 10-40 mL Intracatheter q8h 0.9% NaCl 3 mL Intracatheter q8h ammonium lactate Topical BID apixaban 10 mg Oral BID Followed by [START ON 08/13/2024] apixaban 5 mg Oral BID carvedilol 6.25 mg Oral BID WC epoetin 5,000 Units Intravenous DIALYSIS TUE, BLUE, & SAT ferrous sulfate 325 mg Oral QDAY WITH BREAKFAST gabapentin 300 mg Oral MON, WED AND FRI renal vitamin 1 tablet Oral QDAY sevelamer carbonate 1,600 mg Oral TID WC vancomycin 750 mg Intravenous TUES, THUR & SAT vancomycin (VANCOCIN) IV dose per pharmacy Does not apply DIRECTED vitamin D3 5,000 Units Oral QDAY * Shakila Moody RN - 08/06/2024 3:48 PM CDT HOME CARE REFERRAL RECEIVED HOWEVER THE PATIENT RESIDES IN AN AREA THAT IS NO LONGER PART OF THE NETWORK. MEDICAL BILL PROCESSOR MADE AWARE & THE REFERRAL CLOSED. Ambar Moody RN [facility] foreign languages department chair Liaison [facility] At Home [phone] * Tyron Vasquez RN - 08/06/2024 12:41 [...] if medically ready. Patient [place] go to [place] address is [address] [place], [place] [address] [place] [address]. Family Support (Name and Phone): Extended Emergency Contact Information Primary Emergency Contact: Silvia Resendiz Mobile Relation: Mother Mend Worker needed? No Secondary Emergency Contact: GAYE BEAL Mobile Relation: Sister Mend Worker needed? No Transportation at Discharge: : READMISSION RISK SCORE is 24 at 12:24 PM 08/06/2024.: Name: Helen Alexandre RN * Artie Aguillon MD - 08/06/2024 12:20 PM CDT Interventional Nephrology Post-Procedure Note Leeroy Canales 08/06/2024 Procedure: LIJ tunneled central venous catheter placement Natural Gas Treating Unit Operator: Artie Aguillon MD Complications: None The patient tolerated the procedure well with no acute complications with stable vitals post-procedure. Full procedure note and images in Synapse and EPIC (Results/Interventional) 08/06/2024 12:21 PM Artie Aguillon MD [...] Hemodialysis Dialysis center. Spoke with Ying at [facility] and she informed that they would need the IVABX order faxed to [phone]. Khloe Lowery Kidney Navigator/ [facility] Ascom: [phone] Office: [phone] * Gretchen Phan PT - 08/06/2024 12:00 PM CDT [facility] Department of Physical Medicine & Rehabilitation Progress Note Patient: Leeroy Canales Med Record Number: [id number] Date of : 1990 Age: [age] year [...] alternatives with patient, family members or patient franchise sales representative: Yes Attestation: I have reviewed the [...] of relevant data, and documentation. * Trinidad Holloway PharmD - 08/06/2024 6:48 AM CDT ACTIVE [...] and will continue previous regimen/plan. Trinidad Holloway, EliezerD 08/06/2024 6:48 AM [facility] Vancomycin Guideline * Lizett Pace RN - [...] CXR ordered. Pt will be transferring to [facility] Main 6S Acute, RM 638. Pt is in stable condition on 6L at this time. * Bennett Hinojosa - 08/05/2024 9:24 PM CDT contacted staff on [facility] to follow-up on RR page. Patient is stable and awaiting transfer to [facility]. Family is aware and en route. Bennett Hinojosa 08/05/2024 9:27 PM 6603/ On-Call [facility] #[id number] * Mateo Daugherty MD - 08/05/2024 8:40 PM CDT Patient came back from dialysis altered and hypoxic (84%O2). Threw up multiple times. Patient sat up in bed, mentation improving. Blood pressure stable (hypertensive) Attempted to keep on NC but requiring HFNC, will transfer to [facility]. LA, ABG, BMP, CXR ordered Mateo Daugherty MD * Terri Roman RN - 08/05/2024 8:10 PM CDT RAPID RESPONSE DOCUMENTATION NOTE PATIENT'S NAME: Leeroy Canales BIRTHDATE: 1990 CODE STATUS: Full Code RAPID DATE: 08/05/2024 RAPID TIME: 2009 RAPID LOCATION: [facility] ADMITTING SERVICE: Rob Cruz MD PERSON(S) NOTIFIED: Person(s) Notified: The care team at bedside, Provider - MD Daugherty, and Pastoral Care PRIMARY REASON FOR CALL: Blood Pressure Oxygenation Acute mental status change Staff concern OUTCOME: Remains in current room SUMMARY OF RAPID EVENTS: SPECIAL SERVICES SUPERVISOR called for AMS, hypoxia, and hypotension. Per primary RN, patient had returned from dialysis A&Ox4 and endorses feeling sick requesting to sit up at the side of thebed. Patient became diaphoretic, nauseous, and then fainted back into bed. Primary RN reports an initial BP of 70/40s and SPO2 in 40s. Upon SPECIAL SERVICES SUPERVISOR arrival, patient was laying in bed on [...] upon bed availability. Labs and ABG obtainedby SPECIAL SERVICES SUPERVISOR and CXR to follow. Patient is currently in stable condition and does not require any critical care needs at this time. SPECIAL SERVICES SUPERVISOR remains available for any additional needs. 60 minutes spent on patient assessment, review of relevant data, and documentation. * Lb Bose, JIMMIE - 08/05/2024 7:40 PM CDT Patient tolerated treatment faurly well. I was able to remove 3L during 3.5 hours Hemodialysis treatment. Administered Epoetin carlin as prescribed. Blood pressure were soft throughout treatment but patient asymptomatic. Catheter dressing changed. CVC heparin locked. Primary nurse given report. * Nicolás Truong DO - 08/05/2024 5:56 PM CDT [facility] Nephrology Consult Note Date of Admission: 07/25/2024 Date of Service: 07/26/2024 Consulting Service: Trey Team Reason for Consult: ESRD Brief Hospital Course: Leeroy Canales is a 33 year old female w/ PMH significant for ESRD on HD TTS, HTN, HLD, T2DM (diagnosed age 17) c/b retinopathy w/ blindness, hx of RUE dvt, PVD s/p L BKA, HFpEF (70-75% 05/2023), who was transferred from [facility] to [facility] 07/26/24 for R shoulder pain w/ concerns [...] fistula or graft per surgical eval at [facility] unable to locate records. Perm cath removed 07/28 12/05 MSSA bacteremia, persistent until 08/01 1st neg bcx, repeat bcx on 08/02 neg and prelim 08/03 bcx neg Interval hx: -2x bcx neg from 08/01 and 08/02, cx from 08/04 prelim neg Dialysis Center: [facility] Dialysis Days: TTS Date if last dialysis: sat 07/24/24 Access: R-IJ Permcath Dialysis Duration: 3 Hours 30 Minutes Cotton Ball Bagger: Dr Mak [facility] Medications: 0.9% NaCl 10-40 mL Intracatheter [...] heparin, 0-40 Units/kg/hr, Last Rate: 20 Units/kg/hr (08/05/24 1049) Physical Exam: Vitals: 08/05/24 1704 08/05/24 [...] 02/2024 LABS: Recent Labs Component Name 08/05/24 0431 08/04/24 0254 08/03/24 0538 NA 138 137 136 [...] further characterized outside hospital CT from 07/25/2024 ([facility]). No acute fracture or dislocation. Partially [...] 08/2022 #R glenohumeral joint sepsis: -nuc cell [id number] x 97% neutrophils, septic joint, orthopedic surgery [...] random 14.6 Micro Blood cultures 07/29/2024 - 1/2 positive [...] LDA: LEft IJ Diet:renal - NPO at MN Antibiotic end date: TBD Consults: Vascular, ID, Nephrology DVT prophylaxis: Heparin gtt to be held at 1am, Code status: Full code Disposition: continue inpatient care while awaiting final ID plan. Rob Cruz MD Hospital Medicine 08/05/2024 Feel free to text page me through Wapi, login [email or web address] Current Meds 0.9% NaCl 10-40 mL Intracatheter [...] Oral TID WC vancomycin 750 mg Intravenous TUES, THUR & SAT vancomycin [...] Phan PT - 08/05/2024 2:03 PM CDT [facility] Physical Medicine and Rehabilitation Physical Therapy Progress Note Patient: Leeroy Canales Med Record Number: [id number] Date of : 1990 Age: [age] year [...] Patient to perform supine to/from sit independently Fdc Goal(s): Patient to discharge to appropriate next [...] see if insurance would cover the IVABX. [facility] stated they are unable to fill the request as patient will be going to the HD clinic for the IVABX and they are no longer allowed to deliver med's to home for patient to take to HD any longer. [facility] [place] [address]. Family Support (Name and Phone): Extended Emergency Contact Information Primary Emergency Contact: Silvia Resendiz Mobile Relation: Mother Mend Worker needed? No Secondary Emergency Contact: EMIGDIOGAYE Mobile Relation: Sister Mend Worker needed? No Transportation at Discharge: : READMISSION RISK SCORE is 24 at 11:35 AM 08/05/2024.: Name: Helen Alexandre RN * Rocio Hartley PharmD - 08/05/2024 10:20 AM CDT ACTIVE [...] 02/22/24 2359 MRSADPCR Detected* MRSA positive: Yes, blood and shoulder I&D culture positive for MRSA Other pertinent micro: Bcx positive for MRSA 07/25-07/29 (vanc susceptible), Bcx positive for staph hominis 07/31, Bcx no growth to date 07/29 Renal: Considered difficult to accurately assess at this time as patient is on intermittent hemodialysis (iHD) with last session 08/03 and next planned 08/05. Of note patient [...] mg to be given post dialysis on Fri. Monitoring: Will order a vancomycin random level prior to iHD session on 08/10 at 0400 and adjust regimen if indicated. Continue to monitor patient???s renal function and cultures as needed. Continue to do weekly pre-HD levels unless change in HD schedule, then adjust random level timing. Rocio Hartley PharmD 08/05/2024 10:19 AM [facility] Vancomycin Guideline SUBJECTIVE/OBJECTIVE Leeroy Canales is a [...] Bowens COTA - 08/04/2024 1:44 PM CDT [facility] Physical Medicine and Rehabilitation Occupational Therapy Progress Note Patient: Leeroy Canales [facility] Record Number: [id number] Date of : 1990 Age: [age] year [...] activity this date. Bed Mobility: Rolling: Modified [place] Supine to Sit: Minimal Assistance with HOB [...] safety education, HEP education, and adaptive equipment Soaking Pits Supervisor Goal(s): Patient to discharge to appropriate next [...] , with call light within reach, with RNTheresa aware, with therapy cues visible on white [...] for MRSA 07/30/2024 - NGTD 07/31/2024 - 1/ positive for staph hominis 08/01/2024 - NGTD [...] ID plan. Rob Cruz MD Hospital Medicine 08/04/2024 Feel free to text page me through Wapi, login [employer] Current Meds 0.9% NaCl 10-40 mL Intracatheter [...] from the original note were not included. [facility] Infectious Diseases Inpatient Progress Note Patient Name: Leeroy Canales 1990 Room: [facility] Date of Admission: 07/25/2024 Date of Service: [...] off. Please call the Ortho ID pager [phone] with any questions. Updated care plan discussed with Dr. Cruz. Infectious Disease Discharge planning: Antibiotics: IV vancomycin, goal trough 15-20 or AUC 400-600 adminstered with HD T- Th - Fri Duration: 6 weeks from first negative blood culture (07/30/2024 - EOT 09/10/2024) Suppression: None Please obtain CT chest with contrast on or around 08/24/2024, Will try to schedule same day as OPATdue to difficulties with transportation. Weekly Labs on IV antibiotics: CBC with diff, CMP, ESR, CRP, vancomycin trough - please fax resultsto [facility] Infectious disease clinic, fax [phone], Attn Roxanna Roth PA-C If there any concerns, please call [facility] infectious disease clinic: phone [phone] Follow-up in [facility] ID clinic on: 08/23/2024 and 09/08/2024 [facility] clinic [facility] [address] [place] [address] Clinic phone [phone] Clinic fax [phone] DISCUSSION Leeroy Canales is a 33 year old female with PMH of T2DM, ESRD on HD TTS, HTN, HLD,hx of RUE DVT, anemia, PVD, blindness, s/p L AKA, HFpEF, prior hx of infectious arthritis presenting as OSH transfer from [facility] for 3 day history of right shoulder pain. Recurrent MRSA bacteremia - 07/25, 07/26, 07/29: Bcx 2/2 MRSA; 07/29: Bcx 1/2 MRSA - 07/30: Bcx No growth - 07/31: Bcx 1/1 Staph hominis (likely contamination) - 08/01 & [...] off. Please call the Ortho ID pager [phone] with any questions. I spent 35 mins [...] JESSICA Sorensen PA-C Division of Infectious Diseases Contact: [employer] Secure Chat preferred ID Clinic ID Clinic Subjective History of Present Illness: Leeroy Canales is a 33 year old female with PMH of T2DM, ESRD on HD TTS, HTN, HLD, hx of RUE DVT, anemia, PVD, blindness, s/p L AKA, HFpEF, prior hx of infectious arthritis presenting as OSH transfer from [facility] for 3 day history of right shoulder pain. Patient reports that her neck started hurting about 1 week ago and her shoulder pain started 3 days prior to presenting to [facility]. Patient states that she felt right shoulder [...] fevers. Patient comes from a nursing facility ([facility]) where she was receiving rehab for prosthetic for LLE. At [facility] (OSH) labs revealed WBC 12.9k, Hb 10.3, [...] bilateral pneumonia, cardiomegaly . Patient transferred to [facility] on 07/25/2024 for further evaluation of bilateral pneumonia and Right shoulder pyogenic arthritis. ID consulted for antibiotic management in the setting of recurrent pyogenic right shoulder. Patient reports tunneled dialysis line was placed in February 2024, has never been removed or replaced. Previous [facility] Hx: 04/26/2023 -05/09/2023: Presented for for foot [...] complete treatment. 05/23/2024 - 06/03/2024: Presented to [facility] with left shoulder pain, found to have left shoulder septicbursitis, ?osteomyelitis. During this admission, blood cultures negative. OSH aspiration culture negative. [facility] shoulder aspiration culture negative. Synovial fluid with [...] MATT if concerns for endocarditis 07/28: Bcx 2 MRSA 07/28: Vascular surgery recommends CT right foot w contrast; shows calcaneal osteomyelitis. Recommends amputation right foot, patient declines at this time 07/29: Bcx 1/ MRSA 07/30: Bcx no growth 07/30: MRI [...] of breath. Tolerating antibiotics. Appetite has been down.WBC 14.8, Hgb 9.1, Hct 29.7, plt 520. [...] Single Children: No Living situation: Resides at [place], [place] Travel Hx: no international travel Sick [...] BLOOD GLUCOSE FOUR TIMES DAILY Reasons: CALL [facility] WHEN DELIVERING [id number] 12/12/22 Amanda Georges MD carvedilol (Coreg) 12.5 MG tablet Take 1 (one) tablet by mouth 2 times daily with morning and evening meal 12/12/22 Yes Rosi Menard V., [employer] MOULDER FeroSul 325 (65 Fe) MG tablet Take [...] 05/09/23 Yes Joe Vargas MD nystatin (Mycostatin) 081865 UNIT/GM powder Apply to affected area 3 times daily 12/12/22 Yes Rosi Menard V., [employer] MOULDER oxyCODONE, immediate release, (Roxicodone) 10 MG tablet [...] LFTs: Recent Labs Component Name 05/24/24 0625 02/22/24 2214 06/10/23 0939 12/02/22 1955 08/25/22 [...] results for input(s): CK in the last 20861 hours. Microbiology, Imaging and other diagnostic tests [...] Diseases Attending Attestation For this patient encounter, I, Rio Garcia MD, in collaboration with Roxanna Roth PA-C [...] DVT right IJ February 2024 admitted to [facility] for MRSA bacteremia with left shoulder [...] at nursing facility. May 2024 admitted to [facility] for suspected infectious left shoulder bursitis; [...] >35 minutes with the patient and/or guardian ([id number]) or on the patient? s floor/unit, of which more than 50% of the time was spent in counseling and/or coordination of care. Rio Garcia MD Infectious Diseases Attending [facility] * Theresa Preston RN - 08/04/2024 11:10 [...] Work Progress Note [facility]; SW sent clinicals via [employer] for facility awareness. Per 07/29/24 SW note [...] Calcium 8.3 Micro Blood cultures 07/29/2024 - 11/04 positive [...] awaiting final ID plan. Rob Cruz MD [facility] Medicine 08/03/2024 Feel free to text page me through Wapi, login [email or web address] Current Meds 0.9% NaCl 3 mL Intracatheter [...] - 08/03/2024 1:23 PM CDT [facility] Department of Physical Medicine & Rehabilitation Progress Note Patient: Leeroy Canales Med Record Number: [id number] Date of : 1990 Age: [age] year [...] CM spoke with the Admission direct with [address] patient resides. They stated they [...] Emergency Contact: Silvia Resendiz Mobile Relation: Mother Mend Worker needed? No Secondary Emergency Contact: GAYE BEAL Mobile Relation: Sister Mend Worker needed? No Transportation at Discharge: : READMISSION RISK SCORE is 25 at 12:29 PM 08/03/2024.: Name: Helen Alexandre RN * Bethanie Guerra OT - 08/03/2024 10:29 AM CDT [facility] Department of Physical Medicine & Rehabilitation Progress Note Patient: Leeroy Canales Med Record Number: [id number] Date of : 1990 Age: [age] year old 08/03/24 0935 Missed Visit Missed Visit Procedure Off Floor Patient off the floor Dialysis * Severiano Foss MD - 08/03/2024 9:05 AM CDT [facility] Nephrology Progress Note Date of Service: 08/03/2024 [...] Intake/Output Summary (Last 24 hours) at 08/03/2024 09 Last data filed at 08/02/2024 1758 Gross [...] No edema. Comments: Left leg AKA Access: LIMarychuy Juan catheter LABS: Recent Labs Component Name 08/03/24 [...] Discharge Plan: Patient is new to this CM. Per chart review patient [facility] out [facility] HD [facility] [address] [place]. Family Support (Name and Phone): Extended Emergency Contact Information Primary Emergency Contact: Silvia Resendiz Mobile Relation: Mother Mend Worker needed? No Secondary Emergency Contact: GAYE BEAL Mobile Relation: Sister Mend Worker needed? No Transportation at Discharge: : READMISSION [...] 6:22 PM CDT Patient is transferred from [facility] to [facility]. She is here for MRSA bacteremia, is [...] at the bed side, looks more comfortable, NOEN, BCX pending Brief Hx: ESRD 2/2 DM2 on [...] ND Extremities: No edema [facility] otherwise grossly unremarkable. MEDS: 0.9% NaCl, 3 mL, Intracatheter, q8h ammonium lactate, , Topical, BID carvedilol, 12.5 mg, Oral, BID WC epoetin, 5,000 Units, Intravenous, DIALYSIS TUE, BLUE, & SAT ferrous sulfate, 325 mg, Oral, QDAY WITH BREAKFAST furosemide, 40 mg, Oral, QDAY gabapentin, 300 mg, Oral, MON, FRI AND FRI lisinopril, 20 mg, Oral, QDAY renal vitamin, 1 tablet, Oral, QDAY sevelamer carbonate, 1,600 mg, Oral, TID [START ON 08/03/2024] vancomycin, 500 mg, Intravenous, TU, THUR & SAT vancomycin (VANCOCIN) IV [...] 0804 0042 1720 0737 0553 0644 0850 2314 0702 2367 HGB 9.1* 9.0* 9.6* - 8.6* 9.0* [...] displayed. No results for input(s): PHART , DLY1OKV , PO2ART , MEB7KLJ in the last 17455 hours. A&P: ESRD on HD TTS HD tomorrow via [facility] Permcath when Bcx negative Anemia of CKD NEELAM 5K on HD CKD- BMD On renvella 73079rt tid C/w Vit D supplements Aneta Lopez MD Nephrology Attending * Vee Flores RN - 08/02/2024 3:03 PM CDT Skin assessment done with Emily Preston RN. Photos uploaded into the chart. * Roxanna Roth PA-C - 08/02/2024 2:13 PM CDT Images from the original note were not included. [facility] Infectious Diseases Inpatient Progress Note Patient Name: Leeroy Canales 1990 Room: [facility] Date of Admission: 07/25/2024 Date of Service: [...] follow. Please call the Ortho ID pager [phone] with any questions. Updated care plan discussed with Dr. Burleson. DISCUSSION Leeroy Canales is a 33 year old female with PMH of T2DM, ESRD on HD TTS, HTN, HLD,hx of RUE DVT, anemia, PVD, blindness, s/p L AKA, HFpEF, prior hx of infectious arthritis presenting as OSH transfer from [facility] for 3 day history of right shoulder pain. Recurrent MRSA bacteremia - 07/25, 07/26, 07/29: Bcx 2/2 MRSA; 07/29: Bcx 1/2 MRSA - 07/30: Bcx No growth - 07/31: Bcx 1/ GPCs - 08/01 & 08/02 BCx: In [...] closely. Please call the Ortho ID pager [phone] with any questions. I spent 35 mins [...] Sorensen, PA-C Division of Infectious Diseases Contact: [employer] Secure Chat preferred ID Clinic ID Clinic Subjective History of Present Illness: Leeroy Canales is a 33 year old female with PMH of T2DM, ESRD on HD TTS, HTN, HLD, hx of RUE DVT, anemia, PVD, blindness, s/p L AKA, HFpEF, prior hx of infectious arthritis presenting as OSH transfer from [facility] for 3 day history of right shoulder pain. Patient reports that her neck started hurting about 1 week ago and her shoulder pain started 3 days prior to presenting to [facility]. Patient states that she felt right shoulder [...] fevers. Patient comes from a nursing facility ([facility]) where she was receiving rehab for prosthetic for LLE. At [facility] (OSH) labs revealed WBC 12.9k, Hb 10.3, [...] bilateral pneumonia, cardiomegaly . Patient transferred to [facility] on 07/25/2024 for further evaluation of bilateral pneumonia and Right shoulder pyogenic arthritis. ID consulted for antibiotic management in the setting of recurrent pyogenic right shoulder. Patient reports tunneled dialysis line was placed in February 2024, has never been removed or replaced. Previous [facility] Hx: 04/26/2023 -05/09/2023: Presented for for foot [...] complete treatment. 05/23/2024 - 06/03/2024: Presented to [facility] with left shoulder pain, found to have left shoulder septicbursitis, ?osteomyelitis. During this admission, blood cultures negative. OSH aspiration culture negative. [facility] shoulder aspiration culture negative. Synovial fluid with [...] patient declines at this time 07/29: Bcx 1/2 MRSA 07/30: Bcx no growth 07/30: MRI C Spine wwo contrast: No acute cervical spine findings 07/30: Right venous duplex: DVT Right IJ, superficial thrombus right cephalic vein 07/30: Left IJ juan catheter placed by nephrology 07/31: Bcx 1 GPCs 08/01: Bcx pending 08/02: Bcx pending [...] Single Children: No Living situation: Resides at [place], [place] Travel Hx: no international travel Sick [...] DAILY Reasons: CALL [facility] WHEN DELIVERING [id number] 12/12/22 Amanda Georges MD carvedilol (Coreg) 12.5 MG tablet Take 1 (one) tablet by mouth 2 times daily with morning and evening meal 12/12/22 Yes Rosi Menard V., [employer] MOULDER FeroSul 325 (65 Fe) MG tablet Take [...] 05/09/23 Yes Joe Vargas MD nystatin (Mycostatin) 801610 UNIT/GM powder Apply to affected area 3 times daily 12/12/22 Yes Rosi Menard V., [employer] oxyCODONE, immediate release, (Roxicodone) 10 MG tablet [...] 02/23/24 0737 02/22/24 2214 06/10/23 0939 NA 139 135* 137 - 139 [...] results for input(s): CK in the last 57561 hours. Microbiology, Imaging and other diagnostic tests [...] Diseases Attending Attestation For this patient encounter, I, Rio Garcia MD, in collaboration with Roxanna Roth PA-C [...] >35 minutes with the patient and/or guardian ([id number]) or on the patient? s floor/unit, of which more than 50% of the time was spent in counseling and/or coordination of care. Rio Garcia MD Infectious Diseases Attending [facility] * Aide Sutton RD/BARI - 08/02/2024 1:55 PM CDT Clinical Nutrition [...] prior hx of infectious arthritis presenting from [facility] for 3 day history of right [...] 1400 05/29/2024 0857 07/25/2024 2242 07/26/2024 0414 07/26/20242 07/27/2024 1419 07/30/2024195007/31/2024 1107 Weight: 93.4 kg (205 [...] Pain affecting intake: No Estimated Needs: KCAL: 1025-1768 (30-35kcal/kg) Protein (g): 71-82 (1.3-1.5g/kg) Fluid (ml): [...] from the original note were not included. [facility] INTERNAL MEDICINE PROGRESS NOTE Patient: Leeroy Canales [...] successfully underwent dialysis. OBJECTIVE Vital Signs: Vitals: 08/01/24202608/01/24 2348 08/02/24 0642 08/02/24 0836 BP: 161/87 [...] 5,000 Units Intravenous DIALYSIS TUE, FRI, & SAT ferrous sulfate 325 mg [...] Name 08/02/24 0804 08/01/24 0042 07/31/24 0553 12/02/225 08/25/22 0315 08/24/22 1404 08/24/22 0725 [...] Procedure Component Value - Date/Time CULTURE BLOOD [[id number]] Collected: 08/02/24 1327 Lab Status: No result Specimen: Blood Peripheral CULTURE BLOOD [[id number]] Collected: 08/02/24 0902 Lab Status: In process Specimen: Blood Peripheral Updated: 08/02/24 0922 CULTURE BLOOD [[id number]] (Normal) Collected: 08/01/24 0147 Lab Status: Preliminary result Specimen: Blood Peripheral Updated: 08/02/24 0530 Culture No growth 24 hours CULTURE BLOOD [[id number]] (Normal) Collected: 08/01/24 014 Lab Status: Preliminary result Specimen: Blood Peripheral Updated: 08/02/24 0530 Culture No growth 24 hours CULTURE BLOOD [[id number]] (Abnormal) Collected: 07/31/24 1720 Lab Status: Preliminary result Specimen: Blood Peripheral Updated: 08/02/24 1517 Culture Growth of Staphylococcus hominis Comment: Possible contaminant unless multiple cultures are positive for the same isolate. Gram Stain Gram-positive cocci in clusters Narrative: Positive at 17 Hours 12 Minutes CULTURE BLOOD [[id number]] (Normal) Collected: 07/30/24 1213 Lab Status: Preliminary result Specimen: Blood Peripheral Updated: 08/01/24 1631 Culture No growth CULTURE BLOOD [[id number]] (Normal) Collected: 07/30/24 1203 Lab Status: Preliminary result Specimen: Blood Peripheral Updated: 08/01/24 1631 Culture No growth CULTURE BLOOD [[id number]] (Normal) Collected: 07/29/24 1636 Lab Status: Preliminary result Specimen: Blood Peripheral Updated: 07/31/24 2031 Culture No growth CULTURE BLOOD [[id number]] (Abnormal) Collected: 07/29/24 1117 Lab Status: Preliminary [...] Refer to previously reported susceptibility testing, specimen number:[id number] CULTURE BLOOD [[id number]] (Abnormal) (Susceptibility) Collected: 07/28/242047 Lab Status: Preliminary result Specimen: Blood Peripheral Updated: 07/31/242122 Culture Growth of Staphylococcus aureus methicillin-resistant (MRSA) [...] Susceptible 1 ug/mL CHARLES Final CULTURE BLOOD [[id number]] (Abnormal) Collected: 07/28/24 1753 Lab Status: Preliminary [...] to previously reported susceptibility testing, specimen number: [id number] Positive at 41 Hours 58 Minutes Infectious disease consultation strongly recommended, where available. CULTURE ANAEROBE [[id number]] (Normal) Collected: 07/27/24 09 Lab Status: Final result Specimen: Microbiology from Synovial Fluid Updated: 08/01/24 0807 Culture No anaerobic organisms isolated CULTURE FUNGUS OTHER+FUNGUS SMEAR [[id number]] (Normal) Collected: 07/27/24 09 Lab Status: Preliminary result Specimen: Microbiology from Synovial Fluid Updated: 08/02/24 1113 Culture No fungus isolated Fungus Stain No yeast or hyphae seen CULTURE WOUND+GRAM STAIN [[id number]] (Abnormal) (Susceptibility) Collected: 07/27/24 09 Lab Status: Final result Specimen: Microbiology from [...] Susceptible 1 ug/mL CHARLES Final CULTURE BLOOD [[id number]] (Abnormal) Collected: 07/26/24 2308 Lab Status: Final [...] to previously reported susceptibility testing, specimen number: [id number] Infectious disease consultation strongly recommended, where available. CULTURE BLOOD [[id number]] (Abnormal) Collected: 07/26/24 2252 Lab Status: Final [...] to previously reported susceptibility testing, specimen number: [id number] Infectious disease consultation strongly recommended, where available. CULTURE FLUID+GRAM STAIN [[id number]] (Abnormal) (Susceptibility) Collected: 07/26/24 1320 Lab Status: [...] Susceptible 1 ug/mL CHARLES Final CULTURE ANAEROBE [[id number]] (Normal) Collected: 07/26/24 1320 Lab Status: Final result Specimen: Microbiology from Synovial Fluid Updated: 08/01/24 0807 Culture No anaerobic organisms isolated CULTURE BLOOD [[id number]] (Abnormal) Collected: 07/25/24 2318 Lab Status: Final [...] to previously reported susceptibility testing, specimen number: [id number] CULTURE BLOOD [[id number]] (Abnormal) (Susceptibility) Collected: 07/25/24 2316 Lab Status: [...] Susceptible 1 ug/mL CHARLES Final BCID PANEL [[id number]] (Abnormal) Collected: 07/25/24 1416 Lab Status: Final result Specimen: Blood Peripheral Updated: 07/26/24 1644 Staphylococcus aureus Detected MECA/C and MREJ (Methicillin-Resistance Gene) Detected Comment: Results indicate methicillin-resistant Staphylococcus aureus (MRSA). Methicillin resistance detected. Narrative: Blood Culture ID Panel performed by [employer] multiplex PCR. The Test panel includes: Gram [...] MREJ (methicillin- resistance - MRSA), NDM ([place] satwivy-oiri-dkqhkwsbx), OXA-48-like ( oxacillinase beta-lactamase),Geo/B (vancomycin-resistance), VIM (Esther [...] physician. Roberto No MD Internal Medicine Resident [facility] 08/02/2024 9:32 AM Associated attestation - Geronimo [...] (HCC) (POA: Yes) Geronimo Burleson MD Hospitalist [employer] Personal Banker of Internal Medicine Signed: 08/02/2024 4:35 PM [...] Oral, QDAY gabapentin, 300 mg, Oral, MON, FRI AND FRI lisinopril, 20 mg, Oral, QDAY renal vitamin, 1 tablet, Oral, QDAY sevelamer carbonate, 1,600 mg, Oral, TID [START ON 08/03/2024] vancomycin, 500 mg, Intravenous, TU, THUR & SAT vancomycin (VANCOCIN) IV dose per pharmacy, , Does not apply, DIRECTED vitamin D3, 5,000 Units, Oral, QDAY PRN MEDS: SALINE LOCK, INSERT AND MAINTAIN AND 0.9% NaCl AND 0.9% NaCl acetaminophen dextrose IV for hypoglycemia OR dextrose IV for hypoglycemia OR glucagon glucose (Diabetic Use) gel heparin 100 units/mL heparin HYDROmorphone oxyCODONE (immediate release) LAB: Component Name 08/01/24 07/31/24 07/31/24 07/31/24 07/30/24 07/29/24 07/26/24 07/25/24 02/23/24 02/22/24 04/27/23 04/26/23 0042 1720 0737 0553 0644 0624 0850 2316 0737 2214 0729 0629 HGB 9.0* 9.6* - [...] CL 100 102 104 100 102 CO2 26 22 * 23 24 CALCIUM 7.7* 7.5* [...] displayed. No results for input(s): PHART , VJU8GHL , PO2ART , BEJ0PGI in the last 20933 hours. ESRD 2/2 DM2 on HD TTS [...] 5K on HD CKD- BMD On renvella 29651em tid C/w Vit D supplements Aneta Lopez MD Nephrology Attending * Roberto No MD - 08/01/2024 9:34 AM CDT Images from the original note were not included. [facility] INTERNAL MEDICINE PROGRESS NOTE Patient: Leeroy Canales [...] 0042 07/31/24 1720 07/31/24 0553 12/03/22 0242 12/02/221954 WBC 15.0* 15.1* 13.2* - 42.0* HGB 9.0* 9.6* 8.6* - 8.9* HCT 29.7* 31.1* 28.5* - 28.3* PLATELET - - - - Occasional* PLTCOUNT 490* 539* 575* - 556* - = values in this interval not displayed. BMP: Recent Labs Component Name 08/01/24 0042 07/31/24 0553 07/30/24 0644 12/02/22 1955 08/25/22 0315 08/24/22 1404 08/24/22 [...] Procedure Component Value - Date/Time CULTURE BLOOD [[id number]] Collected: 08/01/24 014 Lab Status: In process Specimen: Blood Peripheral Updated: 08/01/24 0230 CULTURE BLOOD [[id number]] Collected: 08/01/24 014 Lab Status: In process Specimen: Blood Peripheral Updated: 08/01/24 0230 CULTURE BLOOD [[id number]] Collected: 07/31/24 1720 Lab Status: In process Specimen: Blood Peripheral Updated: 07/31/24 1730 CULTURE BLOOD [[id number]] (Normal) Collected: 07/30/24 1213 Lab Status: Preliminary result Specimen: Blood Peripheral Updated: 07/31/24 1631 Culture No growth 24 hours CULTURE BLOOD [[id number]] (Normal) Collected: 07/30/24 1203 Lab Status: Preliminary result Specimen: Blood Peripheral Updated: 07/31/24 1631 Culture No growth 24 hours CULTURE BLOOD [[id number]] (Normal) Collected: 07/29/24 1636 Lab Status: Preliminary result Specimen: Blood Peripheral Updated: 07/31/24 2031 Culture No growth CULTURE BLOOD [[id number]] (Abnormal) Collected: 07/29/24 1117 Lab Status: Preliminary [...] Refer to previously reported susceptibility testing, specimen number:[id number] CULTURE BLOOD [[id number]] (Abnormal) (Susceptibility) Collected: 07/28/242047 Lab Status: Preliminary result Specimen: Blood Peripheral Updated: 07/31/242122 Culture Growth of Staphylococcus aureus methicillin-resistant (MRSA) [...] Susceptible 1 ug/mL CHARLES Final CULTURE BLOOD [[id number]] (Abnormal) Collected: 07/28/24 175 Lab Status: Preliminary result Specimen: Blood Peripheral [...] to previously reported susceptibility testing, specimen number: [id number] Positive at 41 Hours 58 Minutes Infectious disease consultation strongly recommended, where available. CULTURE ANAEROBE [[id number]] (Normal) Collected: 07/27/24 09 Lab Status: Final result Specimen: Microbiology from Synovial Fluid Updated: 08/01/24 0807 Culture No anaerobic organisms isolated CULTURE FUNGUS OTHER+FUNGUS SMEAR [[id number]] (Normal) Collected: 07/27/24 09 Lab Status: Preliminary result Specimen: Microbiology from Synovial Fluid Updated: 07/29/24 0623 Culture No fungus isolated Fungus Stain No yeast or hyphae seen CULTURE WOUND+GRAM STAIN [[id number]] (Abnormal) (Susceptibility) Collected: 07/27/24 09 Lab Status: Final result Specimen: Microbiology from [...] Susceptible 1 ug/mL CHARLES Final CULTURE BLOOD [[id number]] (Abnormal) Collected: 07/26/24 2308 Lab Status: Final [...] to previously reported susceptibility testing, specimen number: [id number] Infectious disease consultation strongly recommended, where available. CULTURE BLOOD [[id number]] (Abnormal) Collected: 07/26/24 2252 Lab Status: Final [...] to previously reported susceptibility testing, specimen number: [id number] Infectious disease consultation strongly recommended, where available. CULTURE FLUID+GRAM STAIN [[id number]] (Abnormal) (Susceptibility) Collected: 07/26/24 1320 Lab Status: [...] Susceptible 1 ug/mL CHARLES Final CULTURE ANAEROBE [[id number]] (Normal) Collected: 07/26/24 1320 Lab Status: Final result Specimen: Microbiology from Synovial Fluid Updated: 08/01/24 0807 Culture No anaerobic organisms isolated CULTURE BLOOD [[id number]] (Abnormal) Collected: 07/25/24 2318 Lab Status: Final [...] to previously reported susceptibility testing, specimen number: [id number] CULTURE BLOOD [[id number]] (Abnormal) (Susceptibility) Collected: 07/25/24 2316 Lab Status: [...] Susceptible 1 ug/mL CHARLES Final BCID PANEL [[id number]] (Abnormal) Collected: 07/25/24 2316 Lab Status: Final result Specimen: Blood Peripheral Updated: 07/26/24 5002 Staphylococcus aureus Detected MECA/C and MREJ (Methicillin-Resistance Gene) Detected Comment: Results indicate methicillin-resistant Staphylococcus aureus (MRSA). Methicillin resistance detected. Narrative: Blood Culture ID Panel performed by Ibotta multiplex PCR. The Test panel includes: Gram [...] MREJ (methicillin- resistance - MRSA), NDM ([place] suedgmt-nywd-ybtsyjvqd), OXA-48-like ( oxacillinase beta-lactamase),Geo/B (vancomycin-resistance), VIM (Esther Intergrom-Encoded [place]allo beta-lactamase). 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, with long-term current use of insulin ([facility]) (POA: Yes) Hypoalbuminemia (POA: Yes) Septic arthritis of shoulder, right ([facility]) (POA: Yes) Pneumonia of both lungs due to infectious organism, unspecified part of lung (POA: Yes) Acute pain of right shoulder (POA: Yes) Sepsis due to methicillin resistant Staphylococcus aureus (MRSA) ([facility]) (POA: Yes) Dyslipidemia (POA: Yes) Obesity, Class II, BMI 35-39.9 (POA: Yes) Hyponatremia (POA: Yes) Hyperkalemia (POA: Yes) Hyperphosphatemia (POA: Yes) Hypocalcemia (POA: Yes) Chronic ulcer of right heel ([facility]) (POA: Unknown) Osteomyelitis of right foot ([facility]) (POA: Yes) #MRSA bacteremia #Septic arthritis of [...] physician. Roberto No MD Internal Medicine Resident [facility] 08/01/2024 9:34 AM Associated attestation - Geronimo [...] (POA: Yes) ESRD (end stage renal disease) ([facility]) (POA: Yes) Type 2 diabetes mellitus with [...] (HCC) (POA: Yes) Geronimo Burleson MD Hospitalist [employer] of Internal Medicine Signed: 08/01/2024 4:02 PM [...] Nadir Cox - 08/01/2024 7:04 AM CDT [facility] INTERNAL MEDICINE PROGRESS NOTE Patient: Leeroy Canales [...] Topical BID carvedilol 12.5 mg Oral BID epoetin 5,000 Units Intravenous DIALYSIS TUE, BLUE, [...] Rare MRSA 07/29/24 Blood Culture: MRSA (prelim) 07/30/24 Blood Culture: negative @24H x2, x1 pending [...] further characterized outside hospital CT from 07/25/2024 ([facility] Noacute fracture or dislocation. Partially imaged [...] physician. Nadir Cox M3 - Internal Medicine [facility] 08/01/2024 7:04 AM Associated attestation - Geronimo Burleson MD - 08/01/2024 4:02 PM CDT This note is for educational purposes only and has not necessarily been verified. * Reba Mclean RN - 08/01/2024 3:37 AM CDT Progress notes: [...] from the original note were not included. [facility] INTERNAL MEDICINE PROGRESS NOTE Patient: Leeroy Canales [...] Name 07/31/24 0553 07/30/24 0644 07/29/24 0624 12/03/22 0242 12/02/221954 WBC 13.2* 9.6 10.4 - 42.0* HGB 8.6* 9.0* 9.4* - 8.9* HCT 28.5* 29.5* 30.1* - 28.3* PLATELET - - - - Occasional* PLTCOUNT 575* 471* 467* - 556* - = values in this interval not displayed. BMP: Recent Labs Component Name 07/31/24 0553 07/30/24 0644 07/29/24 0624 12/02/22 1955 08/25/22 0315 08/24/22 1404 08/24/22 [...] Procedure Component Value - Date/Time CULTURE BLOOD [[id number]] Lab Status: No result Specimen: Blood Peripheral CULTURE BLOOD [[id number]] Lab Status: No result Specimen: Blood Peripheral CULTURE BLOOD [[id number]] Collected: 07/30/24 1213 Lab Status: In process Specimen: Blood Peripheral Updated: 07/30/24 1235 CULTURE BLOOD [[id number]] Collected: 07/30/24 1203 Lab Status: In process Specimen: Blood Peripheral Updated: 07/30/24 1235 CULTURE BLOOD [[id number]] (Normal) Collected: 07/29/24 1636 Lab Status: Preliminary result Specimen: Blood Peripheral Updated: 07/30/24 2030 Culture No growth 24 hours CULTURE BLOOD [[id number]] (Abnormal) Collected: 07/29/24 1117 Lab Status: Preliminary result Specimen: Blood Peripheral Updated: 07/31/24 1152 Culture Growth of Staphylococcus aureus Gram Stain Gram-positive cocci in clusters Narrative: Positive at 19 hours and 18 minutes Infectious disease consultation strongly recommended, where available. CULTURE BLOOD [[id number]] (Abnormal) Collected: 07/28/24 2048 Lab Status: Preliminary [...] consultation strongly recommended, where available. CULTURE BLOOD [[id number]] (Abnormal) Collected: 07/28/24 1753 Lab Status: Preliminary result Specimen: Blood Peripheral Updated: 07/30/24 1802 Culture No growth 24 hours Gram Stain Gram-positive cocci in clusters Narrative: Positive at 41 Hours 58 Minutes CULTURE ANAEROBE [[id number]] (Normal) Collected: 07/27/24 0911 Lab Status: Preliminary result Specimen: Microbiology from Synovial Fluid Updated: 07/30/24 1357 Culture No anaerobic organisms isolated to date. CULTURE FUNGUS OTHER+FUNGUS SMEAR [[id number]] (Normal) Collected: 07/27/24 0911 Lab Status: Preliminary result Specimen: Microbiology from Synovial Fluid Updated: 07/29/24 0623 Culture No fungus isolated Fungus Stain No yeast or hyphae seen CULTURE WOUND+GRAM STAIN [[id number]] (Abnormal) (Susceptibility) Collected: 07/27/24 09 Lab Status: Final result Specimen: Microbiology from [...] Susceptible 1 ug/mL CHARLES Final CULTURE BLOOD [[id number]] (Abnormal) Collected: 07/26/24 2308 Lab Status: Final [...] to previously reported susceptibility testing, specimen number: [id number] Infectious disease consultation strongly recommended, where available. CULTURE BLOOD [[id number]] (Abnormal) Collected: 07/26/24 2252 Lab Status: Final [...] to previously reported susceptibility testing, specimen number: [id number] Infectious disease consultation strongly recommended, where available. CULTURE FLUID+GRAM STAIN [[id number]] (Abnormal) (Susceptibility) Collected: 07/26/24 1320 Lab Status: [...] Susceptible 1 ug/mL CHARLES Final CULTURE ANAEROBE [[id number]] (Normal) Collected: 07/26/24 1320 Lab Status: Preliminary result Specimen: Microbiology from Synovial Fluid Updated: 07/29/24 1330 Culture No anaerobic organisms isolated to date. CULTURE BLOOD [[id number]] (Abnormal) Collected: 07/25/24 2318 Lab Status: Final [...] to previously reported susceptibility testing, specimen number: [id number] CULTURE BLOOD [[id number]] (Abnormal) (Susceptibility) Collected: 07/25/242315 Lab Status: Final [...] Susceptible 1 ug/mL CHARLES Final BCID PANEL [[id number]] (Abnormal) Collected: 07/25/242315 Lab Status: Final result Specimen: Blood Peripheral Updated: 07/26/24 1644 Staphylococcus aureus Detected MECA/C and MREJ (Methicillin-Resistance Gene) Detected Comment: Results indicate methicillin-resistant Staphylococcus aureus (MRSA). Methicillin resistance detected. Narrative: Blood Culture ID Panel performed by Ibotta multiplex PCR. The Test panel includes: Gram [...] MREJ (methicillin- resistance - MRSA), NDM ([place] gycweca-ehzn-wgxrsghsa), OXA-48-like ( oxacillinase beta-lactamase),Geo/B (vancomycin-resistance), VIM (Esther Intergrom-Encoded [place] beta-lactamase). 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 Roberto No MD Internal Medicine Resident [facility] 07/31/2024 1:09 PM Associated attestation - Geronimo [...] (HCC) (POA: Yes) Geronimo Burleson MD Hospitalist [employer] of Internal Medicine Signed: 07/31/2024 1:23 PM [...] 07/31/24-08/07/24 Primary RN Nurse: ROSI DODD RN [id number] * Ritesh Butler, EliezerD - 07/31/2024 9:48 AM CDT ACTIVE CONSULTS [...] displayed. Microbiology: Recent Labs Component Name 02/22/24 8849 MRSADPCR Detected* MRSA positive: Yes Other pertinent [...] timing. Ritesh Butler, PharmD 07/31/2024 9:16 AM [facility] Vancomycin Guideline SUBJECTIVE/OBJECTIVE Leeroy Canales is a 33 year old female. Height: 5' 7 (170.2 cm) Wt 112.9 kg (248 lb 12.8 oz) Body mass index is 38.69 kg/m??. Vancomycin Administrations from JAN (last 72 hours) Date/Time Action Medication Dose Rate 07/29/24 1328 $ New Bag/Syringe vancomycin (Vancocin) 500 mg in 0.9% NaCl IV 100 mL IVPB 500 mg 200 mL/hr * Nadir Cox - 07/31/2024 7:25 AM CDT [facility] INTERNAL MEDICINE PROGRESS NOTE Patient: Leeroy Canales [...] further characterized outside hospital CT from 07/25/2024 ([facility]). Noacute fracture or dislocation. Partially imaged [...] physician. Nadir Cox M3 - Internal Medicine [facility] 07/31/2024 7:25 AM Associated attestation - Geronimo [...] from the original note were not included. [facility] NEPHROLOGY PROGRESS NOTE Patient: Leeroy Canales Sex: [...] QDAY sevelamer carbonate 1,600 mg Oral TID sodium zirconium cyclosilicate 10 g Oral QDAY [...] Procedure Component Value - Date/Time CULTURE BLOOD [[id number]] Collected: 07/30/24 1213 Lab Status: In process Specimen: Blood Peripheral Updated: 07/30/24 1235 CULTURE BLOOD [[id number]] Collected: 07/30/24 1203 Lab Status: In process Specimen: Blood Peripheral Updated: 07/30/24 1235 CULTURE BLOOD [[id number]] Collected: 07/29/24 1636 Lab Status: In process Specimen: Blood Peripheral Updated: 07/29/24 1639 CULTURE BLOOD [[id number]] (Abnormal) Collected: 07/29/24 1117 Lab Status: Preliminary result Specimen: Blood Peripheral Updated: 07/30/24 1045 Gram Stain Gram-positive cocci in clusters Narrative: Positive at 19 hours and 18 minutes CULTURE BLOOD [[id number]] (Abnormal) Collected: 07/28/24 2048 Lab Status: Preliminary result Specimen: Blood Peripheral Updated: 07/30/24 1025 Gram Stain Gram-positive cocci in clusters Narrative: Positive at 26 Hours 12 Minutes CULTURE BLOOD [[id number]] (Normal) Collected: 07/28/24 1753 Lab Status: Preliminary result Specimen: Blood Peripheral Updated: 07/29/24 2331 Culture No growth 24 hours CULTURE ANAEROBE [[id number]] (Normal) Collected: 07/27/24 0911 Lab Status: Preliminary result Specimen: Microbiology from Synovial Fluid Updated: 07/30/24 1357 Culture No anaerobic organisms isolated to date. CULTURE FUNGUS OTHER+FUNGUS SMEAR [[id number]] (Normal) Collected: 07/27/24 0911 Lab Status: Preliminary result Specimen: Microbiology from Synovial Fluid Updated: 07/29/24 0623 Culture No fungus isolated Fungus Stain No yeast or hyphae seen CULTURE WOUND+GRAM STAIN [[id number]] (Abnormal) (Susceptibility) Collected: 07/27/24 0911 Lab Status: [...] Susceptible 1 ug/mL CHARLES Final CULTURE BLOOD [[id number]] (Abnormal) Collected: 07/26/24 2308 Lab Status: Final [...] to previously reported susceptibility testing, specimen number: [id number] Infectious disease consultation strongly recommended, where available. CULTURE BLOOD [[id number]] (Abnormal) Collected: 07/26/24 2252 Lab Status: Final [...] to previously reported susceptibility testing, specimen number: [id number] Infectious disease consultation strongly recommended, where available. CULTURE FLUID+GRAM STAIN [[id number]] (Abnormal) (Susceptibility) Collected: 07/26/24 1320 Lab Status: [...] Susceptible 1 ug/mL CHARLES Final CULTURE ANAEROBE [[id number]] (Normal) Collected: 07/26/24 1320 Lab Status: Preliminary result Specimen: Microbiology from Synovial Fluid Updated: 07/29/24 1330 Culture No anaerobic organisms isolated to date. CULTURE BLOOD [[id number]] (Abnormal) Collected: 07/25/248 Lab Status: Final result Specimen: Blood Peripheral [...] to previously reported susceptibility testing, specimen number: [id number] CULTURE BLOOD [[id number]] (Abnormal) (Susceptibility) Collected: 07/25/24 2316 Lab Status: [...] Susceptible 1 ug/mL CHARLES Final BCID PANEL [[id number]] (Abnormal) Collected: 07/25/24 2316 Lab Status: Final result Specimen: Blood Peripheral Updated: 07/26/24 1644 Staphylococcus aureus Detected MECA/C and MREJ (Methicillin-Resistance Gene) Detected Comment: Results indicate methicillin-resistant Staphylococcus aureus (MRSA). Methicillin resistance detected. Narrative: Blood Culture ID Panel performed by Ibotta multiplex PCR. The Test panel includes: Gram [...] MREJ (methicillin- resistance - MRSA), NDM ([place] lkkszbq-zjvo-qtrzegntc), OXA-48-like ( oxacillinase beta-lactamase),Geo/B (vancomycin-resistance), VIM (Bard Intergrom-Encoded Metallo beta-lactamase). Imaging & Studies: CT [...] bases. > Dictated by Steve Haney DO (residential tech). I, Arthur Avery MD have personally reviewed and interpreted this examination/study. > Interpreting Provider: Arthur Avery MD on 07/27/2024 5:19 PM XR Shoulder Right 2Vw or More Result Date: 07/26/2024 IMPRESSION: Osseous erosions of the humeral head and scapula, 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 Findings are further characterized outside hospital CT from 07/25/2024 ([facility]). No acute fracture or dislocation. Partially [...] (POA: Yes) ESRD (end stage renal disease) ([facility]) (POA: Yes) Type 2 diabetes mellitus with [...] physician. Lorin Reynolds MD Internal Medicine Resident [facility] 07/30/2024 2:33 PM Associated attestation - Aneta Lopez MD - 07/30/2024 11:28 PM CDT I have seen and examined the patient with house-staff on rounds. I agree with the house-staff note and plan as documented below Aneta Lopez MD * Roxanna Roth PA-C - 07/30/2024 1:29 PM CDT Images from the original note were not included. [facility] Infectious Diseases Inpatient Progress Note Patient Name: Leeroy Canales 1990 Room: [facility] Date of Admission: 07/25/2024 Date of Service: [...] follow. Please call the Ortho ID pager [phone] with any questions. Updated care plan discussed with Dr. Burleson. DISCUSSION Leeroy Canales is a 33 year old female with PMH of T2DM, ESRD on HD TTS, HTN, HLD,hx of RUE DVT, anemia, PVD, blindness, s/p L AKA, HFpEF, prior hx of infectious arthritis presenting as OSH transfer from [facility] for 3 day history of right [...] closely. Please call the Ortho ID pager [phone] with any questions. I spent 35 mins in the care of this patient to include chart review, coordination of care, and patient interview / examination / education independent from the attending physician. I spent an additional 10 mins in discussion with attending physician Dr. Ramirez regarding patient case. Patient seen and examined, case discussed with ID attending. JESSICA Sorensen, ALEN Division of Infectious Diseases Contact: [employer] Secure Chat preferred ID Clinic ID Clinic Subjective History of Present Illness: Leeroy Canales is a 33 year old female with PMH of T2DM, ESRD on HD TTS, HTN, HLD, hx of RUE DVT, anemia, PVD, blindness, s/p L AKA, HFpEF, prior hx of infectious arthritis presenting as OSH transfer from [facility] for 3 day history of right shoulder pain. Patient reports that her neck started hurting about 1 week ago and her shoulder pain started 3 days prior to presenting to [facility]. Patient states that she felt right shoulder [...] fevers. Patient comes from a nursing facility ([facility]) where she was receiving rehab for prosthetic for LLE. At [facility] (OSH) labs revealed WBC 12.9k, Hb 10.3, [...] bilateral pneumonia, cardiomegaly . Patient transferred to [facility] on 07/25/2024 for further evaluation of bilateral pneumonia and Right shoulder pyogenic arthritis. ID consulted for antibiotic management in the setting of recurrent pyogenic right shoulder. Patient reports tunneled dialysis line was placed in February 2024, has never been removed or replaced. Previous [facility] Hx: 04/26/2023 -05/09/2023: Presented for for foot [...] complete treatment. 05/23/2024 - 06/03/2024: Presented to [facility] with left shoulder pain, found to have left shoulder septicbursitis, ?osteomyelitis. During this admission, blood cultures negative. OSH aspiration culture negative. [facility] shoulder aspiration culture negative. Synovial fluid with [...] Single Children: No Living situation: Resides at [place], [place] Travel Hx: no international travel Sick [...] DAILY Reasons: CALL [facility] WHEN DELIVERING [id number] 12/12/22 Amanda Georges MD carvedilol (Coreg) 12.5 MG tablet Take 1 (one) tablet by mouth 2 times daily with morning and evening meal 12/12/22 Yes Rosi Menard V., [employer] FeroSul 325 (65 Fe) MG tablet Take [...] 05/09/23 Yes Joe Vargas MD nystatin (Mycostatin) [id number] UNIT/GM powder Apply to affected area 3 times daily 12/12/22 Yes Rosi Menard V., [employer] oxyCODONE, immediate release, (Roxicodone) 10 MG tablet [...] 0702 05/25/24 0643 05/24/24 0625 02/23/24 0737 02/22/24221306/10/23 0939 NA 135* 137 136 - 139 - 136 143 CL 104 100 102 - 104 - 100 110* CO2 21* 23 24 - 26 - 26 25 BUN 44* 35* 29* - 33* [...] not displayed. Coagulation: Recent Labs Component Name 07/25/24 2316 02/22/24 2214 04/26/23 0629 PT 15.3* 14.6 16.3* INR 1.2 1.2 1.3 PTT 30.3 - 29.8 ESR: Recent Labs Component Name 07/25/24 2316 05/24/24 0548 02/23/24 0737 ESR 120* 114* 116* CRP: Recent Labs Component Name 07/25/24 2316 05/24/24 0625 02/23/24 0737 CRP 28.3* 1.4* 8.3* CK: No results for input(s): CK in the last 67844 hours. Microbiology, Imaging and other diagnostic tests [...] 12:14 PM CDT Spoke with Baldom[facility] at [facility] in regards to patient IV ABX needs [...] Hemodialysis Dialysis center. Khloe Lowery [facility] Nav[facility] Ascom: [phone] Office: [phone] * Nadir Cox - 07/30/2024 6:58 AM CDT [facility] INTERNAL MEDICINE PROGRESS NOTE Patient: Leeroy Canales [...] MPV 7.8 - 11.4 fL 9.4 9.1 [facility] Reference Range & Units 07/28/24 07:02 07/29/24 [...] further characterized outside hospital CT from 07/25/2024 ([facility]). Noacute fracture or dislocation. Partially imaged [...] physician. Nadir Cox M3 - Internal Medicine [facility] 07/30/2024 6:58 AM Associated attestation - Geronimo [...] (HCC) (POA: Yes) Geronimo Burleson MD Hospitalist [employer] of Internal Medicine Signed: 07/30/2024 3:33 PM * Charlie Sutherland MD - 07/30/2024 5:23 AM CDT Orthopaedic Trauma Surgery Daily Progress Note Name: Leeroy Canales Age: [age] year old Room: [facility]/ Date Admitted: 07/25/2024 Interval History: Patient seen [...] D Recent Labs Component Name 02/25/24 0110 [id number] 12.3* Vitals BP 121/70 (BP Location: Left [...] please page Ortho Trauma service pager through [employer]. Patient will require follow up in the office with Dr. Chapman 2 week(s) after discharge. Ortho office staff to help arrange. Please notify Ortho Trauma [facility] when patient is ready for discharge. Contactinformation below: [facility] Office Schedulers: [phone], option 1 Charlie Sutherland MD 07/30/2024 5:23 [...] Zhang COTA - 07/29/2024 4:16 PM CDT [facility] Physical Medicine and Rehabilitation Occupational Therapy Progress Note Patient: Leeroy Canales [facility] Record Number: [id number] Date of : 1990 Age: [age] year [...] safety education, HEP education, and adaptive equipment Fdc Goal(s): Patient to discharge to appropriate next [...] from the original note were not included. [facility] INTERNAL MEDICINE PROGRESS NOTE Patient: Leeroy Canales [...] Lab Results: CBC: Recent Labs Component Name 07/29/24 0624 07/28/24 0702 07/27/24 0501 12/03/22 0242 12/02/221954 WBC 10.4 11.0* 11.7* - 42.0* HGB 9.4* 9.4* 9.0* - 8.9* HCT 30.1* 29.5* 28.7* - 28.3* PLATELET - - - - Occasional* PLTCOUNT 467* 388 339 - 556* - = values in this interval not displayed. BMP: Recent Labs Component Name 07/29/24 0624 07/28/24 0702 07/27/24 0501 12/02/22195408/25/22 0315 08/24/22 1404 08/24/22 0725 SODIUM - - - - 142 143 138 POTASSIUM 4.5 4.2 5.6* - 3.6 3.7 5.2* CHLORIDE - - - - 107 103 110* CO2 23 24 16* - 26 30 20* BUN [...] Procedure Component Value - Date/Time CULTURE BLOOD [[id number]] Collected: 07/29/24 1117 Lab Status: In process Specimen: Blood Peripheral Updated: 07/29/24 1152 CULTURE BLOOD [[id number]] Collected: 07/28/242047 Lab Status: In process Specimen: Blood Peripheral Updated: 07/28/24 205 CULTURE BLOOD [[id number]] Lab Status: No result Specimen: Blood Peripheral CULTURE BLOOD [[id number]] Collected: 07/28/24 175 Lab Status: In process Specimen: Blood Peripheral Updated: 07/28/24 175 CULTURE ANAEROBE [[id number]] (Normal) Collected: 07/27/24 0911 Lab Status: Preliminary result Specimen: Microbiology from Synovial Fluid Updated: 07/28/24 0829 Culture Culture in progress CULTURE FUNGUS OTHER+FUNGUS SMEAR [[id number]] (Normal) Collected: 07/27/24 0911 Lab Status: Preliminary result Specimen: Microbiology from Synovial Fluid Updated: 07/29/24 0623 Culture No fungus isolated Fungus Stain No yeast or hyphae seen CULTURE WOUND+GRAM STAIN [[id number]] (Abnormal) Collected: 07/27/24 0911 Lab Status: Preliminary [...] with anti-MRSA activity. Contact precautionsrequired. CULTURE BLOOD [[id number]] (Abnormal) Collected: 07/26/24 2308 Lab Status: Final [...] to previously reported susceptibility testing, specimen number: [id number] Infectious disease consultation strongly recommended, where available. CULTURE BLOOD [[id number]] (Abnormal) Collected: 07/26/24 2252 Lab Status: Final [...] to previously reported susceptibility testing, specimen number: [id number] Infectious disease consultation strongly recommended, where available. CULTURE FLUID+GRAM STAIN [[id number]] (Abnormal) (Susceptibility) Collected: 07/26/24 1320 Lab Status: [...] Susceptible 1 ug/mL CHARLES Final CULTURE ANAEROBE [[id number]] (Normal) Collected: 07/26/24 1320 Lab Status: Preliminary result Specimen: Microbiology from Synovial Fluid Updated: 07/29/24 1330 Culture No anaerobic organisms isolated to date. CULTURE BLOOD [[id number]] (Abnormal) Collected: 07/25/242317 Lab Status: Final result [...] to previously reported susceptibility testing, specimen number: [id number] CULTURE BLOOD [[id number]] (Abnormal) (Susceptibility) Collected: 07/25/242315 Lab Status: Final [...] Susceptible 1 ug/mL CHARLES Final BCID PANEL [[id number]] (Abnormal) Collected: 07/25/242315 Lab Status: Final result Specimen: Blood Peripheral Updated: 07/26/24 1644 Staphylococcus aureus Detected MECA/C and MREJ (Methicillin-Resistance Gene) Detected Comment: Results indicate methicillin-resistant Staphylococcus aureus (MRSA). Methicillin resistance detected. Narrative: Blood Culture ID Panel performed by Ibotta multiplex PCR. The Test panel includes: Gram [...] MREJ (methicillin- resistance - MRSA), NDM ([place] jlskeqo-rfwu-dxffakbxi), OXA-48-like ( oxacillinase beta-lactamase),Geo/B (vancomycin-resistance), VIM (Bard Intergrom-Encoded Metallo beta-lactamase). Imaging & Studies: CT [...] bases. > Dictated by Steve Haney DO (residential tech). I, Arthur Avery MD have personally reviewed [...] physician. 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, with long-term current use of insulin ([facility]) (POA: Yes) Hypoalbuminemia (POA: Yes) Septic arthritis of shoulder, right ([facility]) (POA: Yes) Pneumonia of both lungs due to infectious organism, unspecified part of lung (POA: Yes) Acute pain of right shoulder (POA: Yes) Sepsis due to methicillin resistant Staphylococcus aureus (MRSA) ([facility]) (POA: Yes) Dyslipidemia (POA: Yes) Obesity, Class II, BMI 35-39.9 (POA: Yes) Hyponatremia (POA: Yes) Hyperkalemia (POA: Yes) Hyperphosphatemia (POA: Yes) Hypocalcemia (POA: Yes) Chronic ulcer of right heel (HCC) (POA: Unknown) Geronimo Burleson MD Hospitalist [employer] Personal Banker of Internal Medicine Signed: 07/29/2024 4:50 PM * Nadir Cox - 07/29/2024 12:15 PM CDT [facility] INTERNAL MEDICINE PROGRESS NOTE Patient: Leeroy Canales [...] further characterized outside hospital CT from 07/25/2024 ([facility] Noacute fracture or dislocation. Partially imaged [...] physician. Nadir Cox M3 - Internal Medicine [facility] 07/29/2024 12:20 PM Associated attestation - Geronimo Burleson MD - 07/29/2024 4:50 PM CDT This note is for educational purposes only and has not necessarily been verified. * Teri Preston, PharmD - 07/29/2024 12:13 PM CDT ACTIVE CONSULTS [...] given at OSH, no doses given at [facility] given therapeutic levels Recent Labs Component Name [...] displayed. Microbiology: Recent Labs Component Name 02/22/24 0553 MRSADPCR Detected* MRSA positive: Yes, hx of MRSA bacteremia February and May with shoulder joint involvement 07/25 blood 2/ - MRSA 07/26 shoulder fluid - MRSA 07/26 blood 2/2 - MRSA 07/27 should synovial fluid - [...] needed. Teri Preston PharmD 07/29/2024 7:58 AM [facility] Vancomycin Guideline SUBJECTIVE/OBJECTIVE Leeroy Canales is a 33 year old female. Height: 5' 7 (170.2 cm) Wt 113.5 kg (250 lb 3.2 oz) Body mass index is 39.19 kg/m??. Vancomycin Administrations from JAN (last 72 hours) None * Mari Scruggs RN - 07/29/2024 11:53 AM CDT Care Coordination Progress Note Expected Discharge Date: 08/02/2024: Discharge Plan: [facility] Barriers: Per MDRs MRSA -antibiotic plan pending. Family Support (Name and Phone): Extended Emergency Contact Information Primary Emergency Contact: Silvia Resendiz Mobile Relation: Mother Mend Worker needed? No Secondary Emergency Contact: GAYE BEAL Mobile Relation: Sister Mend Worker needed? No Transportation at Discharge: Ambulance READMISSION RISK SCORE is 25 at 11:53 AM 07/29/2024.: Name: Mari Scruggs RN * Lorin Reynolds MD - 07/29/2024 11:33 AM CDT Images from the original note were not included. [facility] NEPHROLOGY PROGRESS NOTE Patient: Leeroy Canales Sex: [...] diagnosed as septic arthritis. Upon admission to [facility] afebrile, HDS. Labs remarkable for BNP 380, [...] Procedure Component Value - Date/Time CULTURE BLOOD [[id number]] Collected: 07/29/24 1117 Lab Status: No result Specimen: Blood Peripheral CULTURE BLOOD [[id number]] Collected: 07/28/242047 Lab Status: In process Specimen: Blood Peripheral Updated: 07/28/242053 CULTURE BLOOD [[id number]] Lab Status: No result Specimen: Blood Peripheral CULTURE BLOOD [[id number]] Collected: 07/28/24 175 Lab Status: In process Specimen: Blood Peripheral Updated: 07/28/24 175 CULTURE ANAEROBE [[id number]] (Normal) Collected: 07/27/24 0911 Lab Status: Preliminary result Specimen: Microbiology from Synovial Fluid Updated: 07/28/24 0829 Culture Culture in progress CULTURE FUNGUS OTHER+FUNGUS SMEAR [[id number]] (Normal) Collected: 07/27/24 0911 Lab Status: Preliminary result Specimen: Microbiology from Synovial Fluid Updated: 07/29/24 0623 Culture No fungus isolated Fungus Stain No yeast or hyphae seen CULTURE WOUND+GRAM STAIN [[id number]] (Abnormal) Collected: 07/27/24 09 Lab Status: Preliminary result [...] with anti-MRSA activity. Contact precautionsrequired. CULTURE BLOOD [[id number]] (Abnormal) Collected: 07/26/24 2308 Lab Status: Preliminary [...] to previously reported susceptibility testing, specimen number: [id number] Infectious disease consultation strongly recommended, where available. CULTURE BLOOD [[id number]] (Abnormal) Collected: 07/26/24 2252 Lab Status: Final [...] to previously reported susceptibility testing, specimen number: [id number] Infectious disease consultation strongly recommended, where available. CULTURE FLUID+GRAM STAIN [[id number]] (Abnormal) (Susceptibility) Collected: 07/26/24 1320 Lab Status: [...] Susceptible 1 ug/mL CHARLES Final CULTURE ANAEROBE [[id number]] (Normal) Collected: 07/26/24 1320 Lab Status: Preliminary result Specimen: Microbiology from Synovial Fluid Updated: 07/27/24 1312 Culture Culture in progress CULTURE BLOOD [[id number]] (Abnormal) Collected: 07/25/24 2318 Lab Status: Final [...] to previously reported susceptibility testing, specimen number: [id number] CULTURE BLOOD [[id number]] (Abnormal) (Susceptibility) Collected: 07/25/24 2316 Lab Status: [...] Susceptible 1 ug/mL CHARLES Final BCID PANEL [[id number]] (Abnormal) Collected: 07/25/246 Lab Status: Final result Specimen: Blood Peripheral Updated: 07/26/24 1644 Staphylococcus aureus Detected MECA/C and MREJ (Methicillin-Resistance Gene) Detected Comment: Results indicate methicillin-resistant Staphylococcus aureus (MRSA). Methicillin resistance detected. Narrative: Blood Culture ID Panel performed by Ibotta multiplex PCR. The Test panel includes: Gram [...] MREJ (methicillin- resistance - MRSA), NDM ([place] wlogpkv-hneo-htwaqasel), OXA-48-like ( oxacillinase beta-lactamase),Geo/B (vancomycin-resistance), VIM (Esther [...] bases. > Dictated by Steve Haney DO (residential tech). I, Arthur Avery MD have personally reviewed and interpreted this examination/study. > Interpreting Provider: Arthur Avery MD on 07/27/2024 5:19 PM XR Shoulder Right 2Vw or More Result Date: 07/26/2024 IMPRESSION: Osseous erosions of the humeral head and scapula, 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 Findings are further characterized outside hospital CT from 07/25/2024 ([facility]). No acute fracture or dislocation. Partially imaged airspace opacity in the setting of the right lung. Recommend attention to dedicated chest radiograph. 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 Lorin Reynolds MD Internal Medicine Resident [facility] 07/29/2024 11:33 AM Associated attestation - Aneta [...] D Recent Labs Component Name 02/25/24 0110 [id number] 12.3* Vitals BP 124/70 (BP Location: Left [...] please page Ortho Trauma service pager through [employer]. Patient will require follow up in the office with Dr. Chapman 2 week(s) after discharge. Ortho office staff to help arrange. Please notify Ortho Trauma DAYA when patient is ready for discharge. Contactinformation below: [facility] Office Schedulers: [phone], option 1 Adolfo Browne MD 07/29/2024 7:48 [...] Mckeon MD - 07/28/2024 5:32 PM CDT [facility] INTERNAL MEDICINE PROGRESS NOTE Patient: Leeroy Canales [...] prior hx of infectious arthritis presenting from [facility] for 3 day history of right [...] Vitals: 07/27/24 1804 07/27/24 1841 07/28/24 0907 09/25/24 1235 BP: 139/76 144/77 125/70 123/75 Pulse: [...] 5,000 Units Intravenous DIALYSIS TUE, FRI, & SAT ferrous sulfate 325 mg Oral QDAY WITH BREAKFAST [START ON 07/29/2024] furosemide 40 mg Oral QDAY gabapentin 300 mg Oral MON, WED AND FRI heparin 5,000 Units Subcutaneous q8h iopamidol Intravenous Contrast - Once iopamidol Intravenous Contrast - Once lisinopril 20 mg Oral QDAY renal vitamin 1 tablet Oral QDAY sevelamer carbonate 800 mg Oral TID vancomycin (VANCOCIN) IV dose per pharmacy Does [...] Name 07/28/24 0702 07/27/24 0501 07/26/24 0850 12/02/225 08/25/22 0315 08/24/22 1404 08/24/22 0725 [...] physician. 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 [facility] Infectious Diseases Inpatient Progress Note Patient Name: Leeroy Canales 1990 Room: [facility] Date of Admission: 07/25/2024 Date of Service: [...] antibiotics. Please call the Ortho ID pager [phone] with any questions. Updated care plan discussed with Dr. Burleson at patient bedside. DISCUSSION Leeroy Canales is a 33 year old female with PMH of T2DM, ESRD on HD TTS, HTN, HLD,hx of RUE DVT, anemia, PVD, blindness, s/p L AKA, HFpEF, prior hx of infectious arthritis presenting as OSH transfer from [facility] for 3 day history of right [...] monitor with you closely. Please call the [facility] [employer] [facility] pager [phone] with any questions. I spent 35 mins [...] PAJose EnriqueC Division of Infectious Diseases Contact: [employer] Secure Chat preferred ID Clinic ID Clinic Subjective History of Present Illness: Leeroy Canales is a 33 year old female with PMH of T2DM, ESRD on HD TTS, HTN, HLD, hx of RUE DVT, anemia, PVD, blindness, s/p L AKA, HFpEF, prior hx of infectious arthritis presenting as OSH transfer from [facility] for 3 day history of right shoulder pain. Patient reports that her neck started hurting about 1 week ago and her shoulder pain started 3 days prior to presenting to [facility]. Patient states that she felt right shoulder [...] fevers. Patient comes from a nursing facility ([facility]) where she was receiving rehab for [...] bilateral pneumonia, cardiomegaly . Patient transferred to [facility] on 07/25/2024 for further evaluation of bilateral pneumonia and Right shoulder pyogenic arthritis. ID consulted for antibiotic management in the setting of recurrent pyogenic right shoulder. Patient reports tunneled dialysis line was placed in February 2024, has never been removed or replaced. Previous [facility] Hx: 04/26/2023 -05/09/2023: Presented for for foot [...] complete treatment. 05/23/2024 - 06/03/2024: Presented to [facility] with left shoulder pain, found to have [...] Single Children: No Living situation: Resides at [place], [place] Travel Hx: no international travel Sick [...] BLOOD GLUCOSE FOUR TIMES DAILY Reasons: CALL [facility] WHEN DELIVERING [id number] 12/12/22 Amanda Georges MD carvedilol (Coreg) 12.5 MG tablet Take 1 (one) tablet by mouth 2 times daily with morning and evening meal 12/12/22 Yes Rosi Menard V., [employer] FeroSul 325 (65 Fe) MG tablet Take [...] 05/09/23 Yes Joe Vargas MD nystatin (Mycostatin) 647439 UNIT/GM powder Apply to affected area 3 times daily 12/12/22 Yes Rosi Menard V., [employer] oxyCODONE, immediate release, (Roxicodone) 10 MG tablet [...] results for input(s): CK in the last 74646 hours. Microbiology, Imaging and other diagnostic tests [...] in the lung bases Associated attestation - Yoavny Ramirez MD - 07/28/2024 6:41 PM CDT [...] from the original note were not included. [facility] NEPHROLOGY PROGRESS NOTE Patient: Leeroy Canales Sex: [...] 102/59 Pulse: 73 73 72 73 Resp: 10 10 23 18 Temp: 97.8 ??F (36.6 ??C) SpO2: 97% [...] post-OP multiple epoetin 5,000 Units Intravenous DIALYSIS TUE, BLUE, [...] Procedure Component Value - Date/Time CULTURE BLOOD [[id number]] Lab Status: No result Specimen: Blood Peripheral CULTURE BLOOD [[id number]] Lab Status: No result Specimen: Blood Peripheral CULTURE BLOOD [[id number]] Lab Status: No result Specimen: Blood Peripheral CULTURE ANAEROBE [[id number]] (Normal) Collected: 07/27/24 0911 Lab Status: Preliminary result Specimen: Microbiology from Synovial Fluid Updated: 07/28/24 0829 Culture Culture in progress CULTURE FUNGUS OTHER+FUNGUS SMEAR [[id number]] (Normal) Collected: 07/27/24 0911 Lab Status: Preliminary result Specimen: Microbiology from Synovial Fluid Updated: 07/28/24 1444 Culture Culture in progress Fungus Stain No yeast or hyphae seen CULTURE WOUND+GRAM STAIN [[id number]] Collected: 07/27/24 0911 Lab Status: Preliminary result Specimen: Microbiology from Shoulder Updated: 07/27/24 1621 Gram Stain Light Polymorphonuclear cells No organisms seen CULTURE BLOOD [[id number]] (Abnormal) Collected: 07/26/24 2308 Lab Status: Preliminary result Specimen: Blood Peripheral Updated: 07/28/24 0012 Gram Stain Gram-positive cocci in clusters Narrative: Positive at 18 hours 59 minutes. CULTURE BLOOD [[id number]] (Abnormal) Collected: 07/26/24 2252 Lab Status: Preliminary [...] to previously reported susceptibility testing, specimen number: [id number] Infectious disease consultation strongly recommended, where available. CULTURE FLUID+GRAM STAIN [[id number]] (Abnormal) (Susceptibility) Collected: 07/26/24 1320 Lab Status: [...] Final Inducible Clindamycin Resistance Neg NEG ug/mL CHALRES Final Oxacillin Resistant >=4 ug/mL CHARLES Final Trimethoprim-sulfamethoxazole Resistant >=320 ug/mL CHARLES Final Vancomycin Susceptible 1 ug/mL CHARLES Final CULTURE ANAEROBE [[id number]] (Normal) Collected: 07/26/24 1320 Lab Status: Preliminary result Specimen: Microbiology from Synovial Fluid Updated: 07/27/24 1312 Culture Culture in progress CULTURE BLOOD [[id number]] (Abnormal) Collected: 07/25/242317 Lab Status: Final result [...] to previously reported susceptibility testing, specimen number: [id number] CULTURE BLOOD [[id number]] (Abnormal) (Susceptibility) Collected: 07/25/242315 Lab Status: Final [...] Susceptible 1 ug/mL CHARLES Final BCID PANEL [[id number]] (Abnormal) Collected: 07/25/242315 Lab Status: Final result Specimen: Blood Peripheral Updated: 07/26/24 1644 Staphylococcus aureus Detected MECA/C and MREJ (Methicillin-Resistance Gene) Detected Comment: Results indicate methicillin-resistant Staphylococcus aureus (MRSA). Methicillin resistance detected. Narrative: Blood Culture ID Panel performed by Ibotta multiplex PCR. The Test panel includes: Gram [...] MREJ (methicillin- resistance - MRSA), NDM ([place] uqhqrsv-llud-qteybbzwc), OXA-48-like ( oxacillinase beta-lactamase),Geo/B (vancomycin-resistance), VIM (Bard Intergrom-Encoded Metallo beta-lactamase). Imaging & Studies: CT [...] bases. > Dictated by Steve Haney DO (residential tech). I, Arthur Avery MD have personally reviewed and interpreted this examination/study. > Interpreting Provider: Arthur Avery MD on 07/27/2024 5:19 PM XR Shoulder Right 2Vw or More Result Date: 07/26/2024 IMPRESSION: Osseous erosions of the humeral head and scapula, 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 Findings are further characterized outside hospital CT from 07/25/2024 ([facility]). No acute fracture or dislocation. Partially [...] physician. Lorin Reynolds MD Internal Medicine Resident [facility] 07/27/2024 12:37 PM Associated attestation - Aneta Lopez MD - 07/28/2024 4:12 PM CDT I have seen and examined the patient with house-staff on rounds. I agree with the house-staff note and plan as documented below Aneta Lopez MD * Del Knott RN - 07/28/2024 12:26 PM CDT Call received from Rose at [facility] with updated culture results : [...] decreased or avoided Outcome: Progressing * Mari Scruggs RN - 07/28/2024 12:09 PM CDT Care Coordination Progress Note Expected Discharge Date: 08/02/2024: Discharge Plan: [facility] Barriers: Per MDRs MATT today: IV atb at discharge may be given at HD tbd. Family Support (Name and Phone): Extended Emergency Contact Information Primary Emergency Contact: Silvia Resendiz Mobile Relation: Mother Mend Worker needed? No Secondary Emergency Contact: GAYE BEAL Mobile Relation: Sister Mend Worker needed? No Transportation at Discharge: ambulance: READMISSION RISK SCORE is 24 at 12:09 PM 07/28/2024.: Name: Mari Scruggs RN * Del Knott RN - 07/28/2024 11:53 AM CDT Per agriculture laboratory technician - it is medically necessary for this [...] daily as needed for Constipation blood glucose (Schematic Labsuch Verio) test strip USE ONE STRIP TO TEST BLOOD SUGAR FOUR TIMES DAILY 100 strip PRN Blood Glucose Monitoring Suppl (AlwaySupportTouch Verio Reflect) w/Device KIT Use 1 kit 4 times daily USE METER TO CHECK BLOOD GLUCOSE FOUR TIMES DAILY Reasons: CALL [facility] WHEN DELIVERING [id number] 1 kit 0 carvedilol [...] (Patient not taking: Reported on 07/26/2024) Lancets (GreenPalTOUCH DELICA PLUS 33G EXTRA FINE LANCET) USE ONE LANCET TO PRICK FINGER FOUR TIMES DAILY FOR BLOOD GLUCOSE TESTING 100 Each PRN lisinopril (Prinivil; Zestril) 20 MG tablet Take 1 (one) tablet by mouth once daily melatonin 3 MG tablet Take 1 (one) tablet by mouth nightly as needed for Insomnia nystatin (Mycostatin) 039816 UNIT/GM powder Apply to affected area 3 [...] Bed Assessment Pale/Non-granular;Odorous;Slough Wound Margin Undefined edges Iveth-wound Skin Assessment Boggy Exudate Description Large;Serosanguinous;Purulent Dressing/Treatment [...] Guaman, PT - 07/28/2024 11:38 AM CDT [facility] Physical Medicine and Rehabilitation Physical Therapy Initial Evaluation Note Patient: Leeroy Canales Med Record Number: [id number] Date of : 1990 Age: [age] year [...] Type 2 diabetes mellitus with diabetic polyneuropathy ([facility]) Intentional overdose of drug in tablet form ([facility]) Severe recurrent major 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 psychotic features ([facility]) PTSD (post-traumatic stress disorder) CHF (congestive heart failure) ([facility]) Left foot infection Hypoxia Essential hypertension Swelling of left foot MRSA bacteremia S/P AKA (above knee amputation) unilateral, left ([facility]) 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 ([facility]) Anemia Acute on chronic congestive heart failure, unspecified heart failure type ([facility]) Swelling of right upper extremity Thrombophlebitis 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 ([facility]) ESRD (end stage renal disease) (HCC) 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, with long-term current use of insulin (HCC) Insomnia Abscess of left shoulder Leukocytosis Hypoalbuminemia Osteomyelitis of left shoulder, unspecified type (HCC) Septic arthritis of shoulder, right (HCC) Pneumonia of both lungs due to infectious organism, unspecified part of lung Acute pain of right shoulder Sepsis due to methicillin resistant Staphylococcus aureus (MRSA) ([facility]) Dyslipidemia Obesity, Class II, BMI 35-39.9 Hyponatremia Hyperkalemia Hyperphosphatemia Hypocalcemia Chronic ulcer of right heel ([facility]) Past Medical History: Diagnosis Date Essential (primary) hypertension Heart failure (HCC) Type 2 diabetes mellitus without complications ([facility]) SUBJECTIVE: With encouragement, patient agreed to sit [...] activity this date. Bed Mobility: Rolling: Modified [place] Supine to Sit: Stand By Assist with [...] pre transfer training (scooting down EOB) Modified [place]: AM-PAC 6 Clicks Mobility Raw Score:: 13 [...] Patient to perform supine to/from sit independently. Fdc Goal(s): Return to SNF with ongoing therapy Equipment Issued: gait belt Plan: Transfer training Balance training If patient is discharged from the facility, this note serves as a discharge summary if further physical therapy visits did not occur. Refer to filed flowsheet for further details. Following therapy session, patient left in bed. * Heather Christopher OT - 07/28/2024 11:01 AM CDT [facility] Physical Medicine and Rehabilitation Occupational Therapy Initial Evaluation Note Partial co-eval with PT 2/2 unknown level of assist, patient participation Patient: Leeroy Canales Med Record Number: [id number] Date of : 1990 Age: [age] year [...] Type 2 diabetes mellitus with diabetic polyneuropathy ([facility]) Intentional overdose of drug in tablet form ([facility]) Severe recurrent major 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 psychotic features ([facility]) PTSD (post-traumatic stress disorder) CHF (congestive heart failure) ([facility]) Left foot infection Hypoxia Essential hypertension Swelling of left foot MRSA bacteremia S/P AKA (above knee amputation) unilateral, left ([facility]) 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 ([facility]) Anemia Acute on chronic congestive heart failure, unspecified heart failure type ([facility]) Swelling of right upper extremity Thrombophlebitis 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 ([facility]) ESRD (end stage renal disease) ([facility]) 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, with long-term current use of insulin ([facility]) Insomnia Abscess of left shoulder Leukocytosis Hypoalbuminemia Osteomyelitis of left shoulder, unspecified type ([facility]) Septic arthritis of shoulder, right ([facility]) Pneumonia of both lungs due to infectious organism, unspecified part of lung Acute pain of right shoulder Sepsis due to methicillin resistant Staphylococcus aureus (MRSA) ([facility]) Dyslipidemia Obesity, Class II, BMI 35-39.9 Hyponatremia Hyperkalemia Hyperphosphatemia Hypocalcemia Chronic ulcer of right heel ([facility]) Past Medical History: Diagnosis Date Essential (primary) hypertension Heart failure ([facility]) Type 2 diabetes mellitus without complications ([facility]) SUBJECTIVE: Subjective: Pt agreeable to therapy evaluation with significant education PATIENT GOALS: Patient's Primary Concern: to talk to her sister Home Situation: Type of Residence: Apartment (admitted from [facility]) Equipment at Home: Wheelchair Prior Level [...] activity this date. Bed Mobility: Rolling: Modified [place] Supine to Sit: Stand By Assist with [...] TOLERANCE: Activity Tolerance: Requires rest breaks Modified [place]: AM-PAC 6 Clicks Daily Activity Raw Score:: [...] safety education, HEP education, and adaptive equipment Fdc Goal(s): Patient to discharge to appropriate next [...] Jeanna Garcia - 07/28/2024 7:01 AM CDT [facility] INTERNAL MEDICINE PROGRESS NOTE Patient: Leeroy Canales [...] further characterized outside hospital CT from 07/25/2024 ([facility]). 2. No acute fracture or dislocation. 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 Jeanna Garcia MS3 [facility] 07/28/2024 7:05 AM Associated attestation - Geronimo [...] 104 CO2 16* 14* 18* - 25 21* 24 BUN 49* 38* 36* - 39* 28* 16 CREATININE 9.99* 8.40* 7.46* - 7.43* 5.80* 3.73* GLUCOSE 150* 161* 138* - 92 112 141* CALCIUM 7.7* 8.1* 8.3* - 8.8 8.8 8.3* MAGNESIUM - - - - 2.4 2.1 2.0 PHOS 7.7* 7.4* 6.5* - 7.3* 6.1* 4.1 - = values in this interval not displayed. Coags Recent Labs Component Name 07/25/24231502/22/24 22104/26/23 0629 PT 15.3* 14.6 16.3* INR 1.2 1.2 1.3 PTT 30.3 - 29.8 Vitamin D Recent Labs Component Name 02/25/24 0110 [id number] 12.3* Vitals BP 144/77 (BP Location: Left [...] please page Ortho Trauma service pager through [employer]. Patient will require follow up in the office with Dr. Chapman 2 week(s) after discharge. Ortho office staff to help arrange. Please notify Ortho Trauma DAYA when patient is ready for discharge. Contactinformation below: [facility] Office Schedulers: [phone], option 1 Nitesh Stephens MD 07/28/2024 5:03 [...] Mckeon MD - 07/27/2024 4:55 PM CDT [facility] INTERNAL MEDICINE PROGRESS NOTE Patient: Leeroy Canales [...] prior hx of infectious arthritis presenting from [facility] for 3 day history of right [...] (POA: Yes) ESRD (end stage renal disease) ([facility]) (POA: Yes) Type 2 diabetes mellitus with [...] - BNP elevated at 380 - CXR 9/22: Mild bilateral interstitial opacities may represent mild [...] physician. Kari Mckeon MD Internal Medicine Resident [facility] 07/27/2024 5:34 PM Associated attestation - Geronimo [...] Hypocalcemia (POA: Yes) Geronimo Burleson MD Hospitalist Retail Personal Banker of Internal Medicine Signed: 07/27/2024 7:33 PM * Khloe Lowery - 07/27/2024 2:10 PM CDT Meet with patient in dialysis suite. Patient confirmed her OP HD schedule and voiced no concerns with clinic. Documented acknowledgement of choice:Yes, verbal consent due to contact precautions Khloe Lowery Kidney Navigator Office:[phone] Ascom: [phone] * Masha Finley RN - 07/27/2024 12:34 PM CDT Pt off the floor. Will attempt to follow up when time permits. * Charlie Sutherland MD - 07/27/2024 10:10 AM CDT Leeroy Canales, 33 year old, female : 1990 CSN: [id number] Admitted: 07/25/2024 8:15 PM Subjective Nausea/vomiting: none [...] Jeanna Garcia - 07/27/2024 8:16 AM CDT [facility] INTERNAL MEDICINE PROGRESS NOTE Patient: Leeroy Canales [...] Pulse: 80 80 80 79 Resp: 20 19 22 20 Temp: 99.8 ??F (37.7 ??C) SpO2: [...] further characterized outside hospital CT from 07/25/2024 ([facility]). -No acute fracture or dislocation. -Partially [...] (POA: Yes) ESRD (end stage renal disease) ([facility]) (POA: Yes) Type 2 diabetes mellitus with [...] aspiration of R shoulder on 07/26/24 at [facility], 15mL aspirated with results showing heavy PMNs [...] attending physician. Jeanna Garcia Internal Medicine Resident [facility] 07/27/2024 8:16 AM Associated attestation - Geronimo Burleson MD - 07/27/2024 5:16 PM CDT This note is for educational purposes only and has not necessarily been verified. * Adolfo Browne MD - 07/27/2024 5:53 AM CDT Orthopaedic Trauma Surgery Daily Progress Note Name: Leeroy Canales Age: [age] year old Room: 1/ Date Admitted: 07/25/2024 Interval History: Patient seen [...] D Recent Labs Component Name 02/25/24 0110 [id number] 12.3* Vitals BP 107/61 (BP Location: Left [...] please page Ortho Trauma service pager through [employer]. Patient will require follow up in the office with Dr. Chapman 2 week(s) after discharge. Ortho office staff to help arrange. Please notify Ortho Trauma DAYA when patient is ready for discharge. Contactinformation below: [facility] Office Schedulers: [phone], option 1 Adolfo Browne MD 07/27/2024 5:53 [...] time Aspiration consistent with septic joint > [id number] count with Gm + cocci noted.... Plan [...] for their review. Spoke with Kristan at [facility] and she was able to confirm patient's OP HD schedule Outpatient Clinic [facility] Days: TTS Time: 11:30am Doctor: Dr Mak Khloe Lowery Kidney Navigator/ [facility] Ascom: [phone] Office: [phone] * Jyoti Omalley PharmD - 07/26/2024 11:31 [...] 02/22/24 2359 MRSADPCR Detected* MRSA positive: Yes, history of [...] and adjust level timing as indicated. Jyoti Omalley, PharmD 07/26/2024 10:55 AM [facility] Vancomycin Guideline SUBJECTIVE/OBJECTIVE Leeroy Canales is a 33 year old female. Height: 5' 7 (170.2 cm) Wt 114.2 kg (251 lb 11.2 oz) Body mass index is 39.42 kg/m??. Vancomycin Administrations from JAN (last 72 hours) None * Mari Scruggs RN - 07/26/2024 9:10 AM CDT Care Coordination Initial Assessment Expected Discharge Date: 07/28/2024 Expected Discharge Disposition: [facility] Facility ([facility] x1 year per patient) Transportation at Discharge: Prior Level of Care: Alf - Skilled Facility Prior to Admit Provider: Comments: Initial assessment completed. Lives with her mom [address] Reside at [address] [address] tel [phone]. Lives with: Family Members Physical Limitations: None Requires Assistance With: None Preferred Pharmacy: [facility] [phone] [facility] [id number] [facility] [address] READMISSION RISK SCORE is 24 at 11:33 AM 07/26/2024. Met with patient Family Support (name and phone): Extended Emergency Contact Information Primary Emergency Contact: Silvia Resendiz Mobile Relation: Mother Mend Worker needed? No Secondary Emergency Contact: GAYE BEAL Mobile Relation: Sister Mend Worker needed? No Patient or franchise sales representative requests care coordination reach out to family or caregiver listed above regarding discharge planning and at time of discharge? No Actual Level of Care/Dispostion Details Plaster Model And Mold Maker Referral: Yes Will continue to follow. For any questions or needs please contact: Systems Integration Analyst/Social Work Name/Phone number: Mari Scruggs RN * Roxanna Stein RN - 07/26/2024 7:54 AM CDT Pt. arrived via EMS without dressing covering dialysis catheter. * Kari Mckeon MD - 07/26/2024 7:08 AM CDT [facility] INTERNAL MEDICINE PROGRESS NOTE Patient: Leeroy Canales [...] prior hx of infectious arthritis presenting from [facility] for 3 day history of right [...] sevelamer carbonate 800 mg Oral TID vancomycin (VANCOCIN) IV dose per pharmacy Does [...] Name 07/26/24 0850 07/25/24 2316 06/03/24 0009 12/02/22 1955 08/25/22 0315 08/24/22 1404 08/24/22 [...] (POA: Yes) ESRD (end stage renal disease) ([facility]) (POA: Yes) Type 2 diabetes mellitus with [...] physician. Kari Mckeon MD Internal Medicine Resident [facility] 07/26/2024 7:08 AM Associated attestation - Hunter [...] Date of Resident's note Hunter Chin MD Retail Personal Banker, Hospital Medicine [facility] 07/28/24 10:58 AM * Roxanna Stein RN [...] 2,000 mg vancomycin dose at 1800 at [facility]. Plan Regimen: Loading dose: 2000 mg Maintenance [...] renal function and cultures as needed. Roman Smith PharmD 07/25/2024 11:01 PM [facility] Vancomycin Guideline SUBJECTIVE/OBJECTIVE Leeroy Canales is a 33 year old female Height: 5' 7 (170.2 cm) Wt 114.2 kg (251 lb 11.2 oz) Body mass index is 39.42 kg/m??. Dialysis Orders (72h ago, onward) None Vancomycin Administrations from JAN (last 72 hours) None Recent Labs Component [...] Alvarenga MD - 07/30/2024 10:09 AM CDT [facility] PRE PROCEDURE H&P AND SEDATION NOTE Planned [...] 23 24 16* - 26 - 26 25 - 26 30 20* - 28 BUN [...] for performance of procedure. Monitoring: heart rate, power tool repairer, continuous pulse oximetry, frequent blood pressure checks,level [...] Quinn MD - 07/25/2024 9:26 PM CDT [facility] - [facility] INTERNAL MEDICINE HISTORY & PHYSICAL NOTE [...] prior hx of infectious arthritis presenting from [facility] for 3 day history of right [...] No Stress: No Stress Concern Present (07/26/2024) [place] [employer] Occupational Health - Occupational Stress Questionnaire [...] daily as needed for Constipation blood glucose (Schematic Labsuch Verio) test strip USE ONE STRIP TO TEST BLOOD SUGAR FOUR TIMES DAILY 100 strip PRN Blood Glucose Monitoring Suppl (Schematic Labsuch Verio Reflect) w/Device KIT Use 1 kit 4 times daily USE METER TO CHECK BLOOD GLUCOSE FOUR TIMES DAILY Reasons: CALL [facility] WHEN DELIVERING [id number] 1 kit 0 carvedilol [...] (Patient not taking: Reported on 07/26/2024) Lancets (GreenPalTOUCH DELICA PLUS 33G EXTRA FINE LANCET) USE ONE LANCET TO PRICK FINGER FOUR TIMES DAILY FOR BLOOD GLUCOSE TESTING 100 Each PRN lisinopril (Prinivil; Zestril) 20 MG tablet Take 1 (one) tablet by mouth once daily melatonin 3 MG tablet Take 1 (one) tablet by mouth nightly as needed for Insomnia nystatin (Mycostatin) 090527 UNIT/GM powder Apply to affected area 3 [...] - 29.8 BMP: Recent Labs Component Name 07/25/24231506/03/24806/02/24 0552 NA 134* 138 136 POTASSIUM 4.7* [...] 07/25/24231506/03/24 00006/02/24 0552 05/25/24 0643 05/24/24 0625 02/22/24221306/10/23 0939 AST - - - - 14 7 12 ALT - - - - 25 11 8 ALKPHOS - - - - 170* 221* 139 TBILI - - - - 0.1* 0.2 0.2 ALB 1.9* 2.1* 2.1* - 1.9* 1.5* 1.5* - = values in this interval not displayed. ABG: Recent Labs Component Name 05/17/23 2206 12/03/22 1856 PH 7.39 7.28* Amylase/Lipase: Invalid input(s): AMYL , LIPA Thyroid Studies: No results for input(s): TSH , T4 in the last 88726 hours. Cardiac Enzymes: Recent Labs Component Name 04/27/23 0729 12/02/22 1955 CKTOTAL 1,624* - TROPONINI - 0.023 Lipid [...] Natalee Quinn MD PGY-1 Internal Medicine Resident [facility] Associated attestation - Chano Heard MD - [...] 5K on HD CKD- BMD On renvella [id number] tid C/w Vit D supplements Aneta Lopez [...] 5K on HD CKD- BMD On renvella [id number] tid C/w Vit D supplements Prescription of dialysis adjusted as indicated. Case discussed with house-staff. Aneta Lopez MD * Husam Palacios MD - 07/30/2024 5:12 PM CDT Brief Procedure Note - Interventional Nephrology Leeroy Canales 1990 Date of procedure: 07/30/24 Procedure: Trialysis catheter placement LI [employer] Treating Unit Operator: Husam Palacios Complications: None CXR reviewed Trialysis catheter ok to use. Full procedure note and images in Synapse and EPIC (Results/Interventional) Dr.Posan Jas Palacios Nephrology Attending [facility] 07/30/24 5:13 PM * Nicolás Truong DO - 07/28/2024 7:17 PM CDTAssociated Order(s): IR CENTRAL LINE REMOVAL [facility] Department of Nephrology Procedure Note [...] well. Nicolás Truong DO Nephrology Fellow [facility] [employer] * nAeta Lopez MD - 07/27/2024 4:11 PM CDT [...] 2:17 PM CDTAssociated Order(s): IP CONSULT TO LICENSED INVESTMENT SALES ASSISTANT Social Work Progress Note Discharge Plan Disposition: [facility] Transportation: Ambulance Anticipated Discharge Date: 08/02/2024 Contacts: Extended Emergency Contact Information Primary Emergency Contact: Silvia Resendiz Mobile Relation: Mother Mend Worker needed? No Secondary Emergency Contact: GAYE BEAL Mobile Relation: Sister Mend Worker needed? No Comments: SW called [facility] to confirm pt is able to return to facility upon dc. Facility confirmed pt is a resident there and can return anytime. Her room number is 615. Address for facility is [address] [place] [address]. SW to follow. Name/Phone number: VERONIKA Rivera [phone] * Kg Cali MD - 07/28/2024 12:01 PM CDT Vascular Surgery Consult Note ADMIT: 07/25/2024 8:15 PM LOS: 3 days 1 Day Post-Op 07/28/2024 History of Present Illness: Leeroy Canales is a 33 year old female with PMHx s/f T2DM, ESRD on HD () via tunneled cath (patient states she was [...] (Azithro, Cefepime, Vanc) at OSH. Transferred to [facility] for Ortho and IDafter imaging obtained showing [...] to be updated with any changes. Jefry Rojas DO General Surgery Resident, PGY-1 [facility] 07/28/24 12:34 PM Senior resident addendum In [...] CDTAssociated Order(s): IP CONSULT TO INFECTIOUS DISEASES [facility] Infectious Diseases Consultation Patient Name: Leeroy Canales 1990 Room: 641/01 Date of Admission: 07/25/2024 Date of Service: [...] to follow right shoulder aspiration cultures from [facility] - Recommend removal of tunneled dialysis line - Recommend venous doppler RUE for evaluation of thrombus / DVT - Please obtain CBC w diff, CMP, ESR, CRP, vancomycin trough at least weekly while on IV antibiotics. Please call the [facility] [employer] pager [phone] with any questions. Updated care plan discussed with Dr. Burleson at patient bedside. DISCUSSION Leeroy Canales is a 33 year old female with PMH of T2DM, ESRD on HD TTS, HTN, HLD,hx of RUE DVT, anemia, PVD, blindness, s/p L AKA, HFpEF, prior hx of infectious arthritis presenting as OSH transfer from [facility] for 3 day history of right shoulder pain. Recurrent MRSA bacteremia - 07/25: Bcx 2/2 MRSA - 07/26: Bcx In process - [...] Intracellular microorganisms, minimal blood contamination. Cultures with Staph aureus, pending susc. - 07/27: OR for right shoulder I&D. [...] monitor with you closely. Please call the [facility] [employer] pager [phone] with any questions. I spent 60 mins [...] Sorensen, PA-C Division of Infectious Diseases Contact: [employer] Secure Chat preferred ID Clinic ID Clinic Subjective History of Present Illness: Leeroy Canales is a 33 year old female with PMH of T2DM, ESRD on HD TTS, HTN, HLD, hx of RUE DVT, anemia, PVD, blindness, s/p L AKA, HFpEF, prior hx of infectious arthritis presenting as OSH transfer from [facility] for 3 day history of right shoulder pain. Patient reports that her neck started hurting about 1 week ago and her shoulder pain started 3 days prior to presenting to [facility]. Patient states that she felt right shoulder [...] fevers. Patient comes from a nursing facility ([facility]) where she was receiving rehab for prosthetic for LLE. At [place] (OSH) labs revealed WBC 12.9k, Hb 10.3, [...] bilateral pneumonia, cardiomegaly . Patient transferred to [facility] on 07/25/2024 for further evaluation of bilateral pneumonia and Right shoulder pyogenic arthritis. ID consulted for antibiotic management in the setting of recurrent pyogenic right shoulder. Patient reports tunneled dialysis line was placed in February 2024, has never been removed or replaced. Previous [facility] Hx: 04/26/2023 -05/09/2023: Presented for for foot [...] complete treatment. 05/23/2024 - 06/03/2024: Presented to [facility] with left shoulder pain, found to have left shoulder septicbursitis, ?osteomyelitis. During this admission, blood cultures negative. OSH aspiration culture negative. [facility] shoulder aspiration culture negative. Synovial fluid with [...] Single Children: No Living situation: Resides at [place], [place] Travel Hx: no international travel Sick [...] BLOOD GLUCOSE FOUR TIMES DAILY Reasons: CALL [facility] WHEN DELIVERING [phone] 12/12/22 Amanda Georges MD carvedilol (Coreg) 12.5 MG tablet Take 1 (one) tablet by mouth 2 times daily with morning and evening meal 12/12/22 Yes Rosi Menard V., TAPPER HAND-CONCRETE PRECAST MOULDER FeroSul 325 (65 Fe) MG tablet Take [...] 05/09/23 Yes Joe Vargas MD nystatin (Mycostatin) 319002 UNIT/GM powder Apply to affected area 3 times daily 12/12/22 Yes Rosi Menard V., TAPPER HAND-CONCRETE PRECAST MOULDER oxyCODONE, immediate release, (Roxicodone) 10 MG tablet [...] not displayed. Coagulation: Recent Labs Component Name 07/25/24 23102/22/244 04/26/23 0629 PT 15.3* 14.6 16.3* INR 1.2 1.2 1.3 PTT 30.3 - 29.8 ESR: Recent Labs Component Name 07/25/246 05/24/24 0548 02/23/24 0737 ESR 120* 114* 116* CRP: Recent Labs Component Name 07/25/24231505/24/24 0625 02/23/24 0737 CRP 28.3* 1.4* 8.3* CK: No results for input(s): CK in the last 70904 hours. Microbiology, Imaging and other diagnostic tests [...] independent of the nurse practitioner. * Nicolás Truong, - 07/26/2024 6:30 PM CDTAssociated Order(s): IP CONSULT TO NEPHROLOGY [facility] Nephrology Consult Note Date of Admission: 07/25/2024 Date of Service: 07/26/2024 Consulting Service: Trey Team Reason for Consult: ESRD Brief Hospital Course: Leeroy Canales is a 33 year old female w/ PMH significant for ESRD on HD TTS, HTN, HLD, T2DM (diagnosed age 17) c/b retinopathy w/ blindness, hx of RUE dvt, PVD s/p L BKA, HFpEF (70-75% 05/2023), who was transferred from [facility] to [facility] 07/26/24 for R shoulder pain w/ concerns [...] fistula or graft per surgical eval at [place] unable to locate records Dialysis Center: [facility] Dialysis Days: TTS Date if last dialysis: sat 07/24/24 Access: R-IJ Permcath Dialysis Duration: 3 Hours 30 Minutes Cotton Ball Bagger: Dr Mak Review of Systems (positives are [...] No Stress: No Stress Concern Present (07/26/2024) [place] [employer] Occupational Health - Occupational Stress Questionnaire [...] (Patient not taking: Reported on 07/26/2024) Lancets (Cogeco Cable DELFishki PLUS 33G EXTRA FINE LANCET) USE ONE LANCET TO PRICK FINGER FOUR TIMES DAILY FOR BLOOD GLUCOSE TESTING 100 Each PRN lisinopril (Prinivil; Zestril) 20 MG tablet Take 1 (one) tablet by mouth once daily melatonin 3 MG tablet Take 1 (one) tablet by mouth nightly as needed for Insomnia nystatin (Mycostatin) 228901 UNIT/GM powder Apply to affected area 3 [...] Intake/Output Summary (Last 24 hours) at 07/26/2024 183 Last data filed at 07/26/2024 181 Gross per 24 hour Intake 450.43 ml [...] LABS: Recent Labs Component Name 07/26/24 0850 07/25/24231506/03/24 0009 NA 133* 134* 138 POTASSIUM 5.3* 4.7* 5.7* CL 108* 107 102 CO2 14* 18* 28 BUN 38* 36* 38* CREATININE 8.40* 7.46* 5.40* Recent Labs Component Name 07/26/24 0850 07/25/24231506/03/24 0009 CALCIUM 8.1* 8.3* 9.3 PHOS 7.4* [...] further characterized outside hospital CT from 07/25/2024 ([facility]). No acute fracture or dislocation. Partially [...] 08/2022 #R glenohumeral joint sepsis: -nuc cell [id number] x 97% neutrophils, septic joint, orthopedic surgery [...] AM CDTAssociated Order(s): IP CONSULT TO ORTHOPEDICS [facility] Orthopedic Trauma Surgery Consultation Note Leeroy Canales, 33 year old, female : 1990 CSN: [id number] Primary Care Physician: CHERISE MARCELO PA-C Chief Complaint No chief complaint on file. Admission Date/Time: 07/25/2024 8:15 PM Today's Date/Time: 07/26/2024 11:57 AM Time at Bedside: 1145am HPI Consulting Service: Medicine U Orthopedic Trauma Surgery consulted for evaluation/management of: Right shoulder pain, concern for right shoulder septic arthritis Leeroy Canales is a 33 year old female who presented to [facility] on 07/25/2024 for right shoulder pain. Patient [...] AM Follow up Contact Information: Orthopaedic Surgery [facility] Medicine, Level I-Orthopaedic Surgery [address] [place] [address] Visit our website at [email or web address] for information about our practice and an interactive health encyclopedia. Please visit [facility] to access your health record, ask questions, request medication refills, and request appointments for non-urgent needs after you have configured your [employer] account. If you do not currently have access, please contact one of our staff members or call [phone]. For after hour emergencies, please call and press 0 for the blankbook stitching machine operator in order to page the orthopedic resident machine repair person. Associated attestation - Tao Chapman MD - [...] prior hx of infectious arthritis presenting from [facility] for 3 day history of right [...] Pain affecting intake: No Estimated Needs: KCAL: 3265-0559 (30-35kcal/kg) Protein (g): 71-82 (1.3-1.5g/kg) Fluid (ml): [...] Alvarenga MD - 07/30/2024 2:07 PM CDT [facility] BRIEF POST PROCEDURE AND SEDATION NOTE Leeroy Canales is a 33 year old female born on 1990 Pre-Op Diagnosis: Bacteremia Post-Op Diagnosis: no vegetation Attending: Ruth Wilcox MD Board Saw Runner(s): Abel Alvarenga MD Type of anesthesia: moderate sedation 100mcg IV fentanyl and 4mg IV midazolam, was used for sedation. Monitoring: Monitoring consisted of: heart rate, power tool repairer, continuous pulse oximetry, continuous capnometry, frequent blood [...] Charlie Sutherland MD - Resident - Assisting Board Saw Runner(s): As above Anesthesia Type: general ETT Complications: [...] right shoulder. ATTENDING SURGEON: Tao Chapman MD CLINICAL MANAGER: Charlie Sutherland MD OPERATIVE INDICATIONS: This woman [...] for appropriate antibiotic coverage. Tao Chapman MD JTCrow/noam .[id number] Doc ID: [id number] Voice Job ID: [id number] documented in this encounter Plan of Treatment Upcoming Encounters Date Type Department Care Team (Late st Contact Info) Description 11/22/2024 1:30 PM SILK SCREEN CUTTER Office Visit [facility] - Infectious Disease [address] [place] [address], [facility] [place] [address] Kash Ha MD [address] [place] [address] Scheduled Orders Name Type Priority Associated Diagnoses [...] Orde r Schedule Ref to Orthopedics - [facility] Outpatient Referral Routine Pyogenic arthritis [...] bacteremia ESRD (end stage renal disease) (HCC) ECHO MATT COMPLETE Routine 07/30/2024 2:0 5 PM CDT Sepsis due to methicillin resistant Staphylococcus aureus (MRSA), unspecified whether acute organ dysfunction present ([facility]) GLUCOSE - POINT OF CARE Routine 07/30/2024 12:38 PM CDT CULTURE BLOOD Timed 07/30/2024 12:13 PM CDT CULTURE BLOOD Timed 07/30/2024 12:03 PM CDT MRI CERVICAL SPINE WWO CONT Routine 07/30/2024 9:22 AM CDT MRSA bacteremia VAS ARTERIAL MULTILEVEL LE STAT 07/30/2024 8:06 AM CDT Chronic heel ulcer, right, with unspecified severity (HCC) VAS RIGHT VENOUS DUPLEX UE Routine 07/30/2024 [...] CULTURE ANAEROBE Routine 07/27/2024 9:11 AM CDT MT MATI SUBQ TISSUE 20 SQ CM/< 07/27/2024 [...] [facility] STAT 07/25/2024 11:16 PM CDT PT-INR [facility] STAT 07/25/2024 11:16 PM CDT BCID PANEL [...] POINT OF CARE (08/09/2024 11:30 AM CDT) Glucose WB/POC 169(H) 70 - 115 mg/dL 08/09/2024 12:22 PM CDT [facility] Specimen Type Cap Fingerstick 2023 12:22 PM CDT [facility] Blood BLOOD SPECIMEN / Unknown 08/09/2024 11:30 AM CDT 08/09/2024 12:22 PM CDT Harpreet Katz DO LAB - POINT OF CARE ORDERABLES Performing Organization Address City/State/[facility] Co de Phone Number [facility] [address] [place] [phone], [facility] [phone] * (ABNORMAL) RENAL FUNCTION PANEL (08/09/2024 9:45 AM CDT) BUN 30(H) 7 - 26 mg/dL 08/09/2024 12:22 PM CDT [facility] Creatinine 6.80(H) 0.56 - 0.96 mg/dL 08/09/2024 12:22 PM CDT [facility] Sodium 139 136 - 145 mmol/L 08/09/2024 12:22 PM CDT [facility] Potassium 4.2 3.5 - 4.5 mmol/L 08/09/2024 12:22 PM CDT [facility] Chloride 100 98 - 107 mmol/L 08/09/2024 12:22 PM [facility] CO2 24 22 - 29 mmol/L 08/09/2024 12:22 PM [facility] Glucose 184(H) 70 - 115 mg/dL 08/09/2024 12:22 PM [facility] Albumin 2.1(L) 3.4 - 5.0 g/dL 08/09/2024 12:22 PM [facility] Calcium 8.6 8.4 - 10.2 mg/dL 08/09/2024 12:22 PM [facility] Phosphorus 4.9 2.9 - 5.1 mg/dL 08/09/2024 12:22 PM [facility] Anion Gap 15 6 - 16 08/09/2024 12:22 PM [facility] BUN/Creatinine Ratio 4(L) 7 - 23 08/09/2024 12:22 PM [facility] Osmolality Calculated 299(H) 275 - 295 mOsm/kg 08/09/2024 12:22 PM [facility] eGFR by CKD-EPI 8(L) >=90 mL/min/1.7 3 m2 08/09/2024 12:22 PM [facility] Blood BLOOD SPECIMEN / Unknown Lab Venipuncture / Unknown 08/09/2024 9:45 AM CDT 08/09/2024 11:58 AM CDT Harpreet Katz DO LAB - CHEMISTRY DIVINA OLVERA [facility] Organization Address City/State/[facility] Co de Phone Number [facility] [address] [place] [address], [facility] [phone] * (ABNORMAL) GLUCOSE - POINT OF CARE (08/09/2024 7:44 AM CDT) Glucose WB/POC 146(H) 70 - 115 mg/dL 08/09/2024 8:19 AM [facility] Specimen Type Cap Fingerstick 2023 8:19 AM [facility] Blood BLOOD SPECIMEN / Unknown 08/09/2024 7:44 AM CDT 08/09/2024 8:19 AM CDT Harpreet Katz DO LAB - POINT OF CARE ORDERABLES [facility] [address] [place] [address], [place] [phone] * (ABNORMAL) GLUCOSE - POINT OF CARE (08/08/2024 8:12 PM CDT) Glucose WB/POC 266(H) 70 - 115 mg/dL 08/08/2024 8:40 PM CDT [facility] Specimen Type Cap Fingerstick 2023 8:40 PM CDT [facility] Blood BLOOD SPECIMEN / Unknown 08/08/2024 8:12 PM CDT 08/08/2024 8:39 PM CDT Harpreet Katz DO LAB - POINT OF CARE ORDERABLES Performing Organization Address City/[facility]/ZIP Co de Phone Number [address] [address], [place] [phone] * (ABNORMAL) GLUCOSE - POINT OF CARE (08/08/2024 4:19 PM CDT) Glucose WB/POC 297(H) 70 - 115 mg/dL 08/08/2024 4:26 PM CDT [facility] Specimen Type Cap Fingerstick 2023 4:26 PM CDT [facility] Blood BLOOD SPECIMEN / Unknown 08/08/2024 4:19 PM CDT 08/08/2024 4:26 PM CDT Harpreet Katz DO LAB - POINT OF CARE ORDERABLES [address] [address], [place] [phone] * (ABNORMAL) GLUCOSE - POINT OF CARE (08/08/2024 11:21 AM CDT) Glucose WB/POC 194(H) 70 - 115 mg/dL 08/08/2024 12:21 PM CDT [facility] Specimen Type Cap Fingerstick 2023 12:21 PM CDT [facility] Blood BLOOD SPECIMEN / Unknown 08/08/2024 11:21 AM CDT 08/08/2024 12:21 PM CDT Harpreet Katz DO LAB - POINT OF CARE ORDERABLES Performing Organization Address City/[facility]/ZIP Co de Phone Number [address] [address], [place] [phone] * (ABNORMAL) GLUCOSE - POINT OF CARE (08/08/2024 7:29 AM CDT) Glucose WB/POC 214(H) 70 - 115 mg/dL 08/08/2024 12:21 PM CDT [facility] Specimen Type Cap Fingerstick 2023 12:21 PM CDT [facility] Blood BLOOD SPECIMEN / Unknown 08/08/2024 7:29 AM CDT 08/08/2024 12:21 PM CDT Harpreet Katz DO LAB - POINT OF CARE ORDERABLES Performing Organization Address [facility] Co de Phone Number [address] [address], [place] [phone] * (ABNORMAL) GLUCOSE - POINT OF CARE (08/07/2024 9:51 PM CDT) Glucose WB/POC 251(H) 70 - 115 mg/dL 08/07/2024 9:53 PM CDT [facility] Specimen Type Cap Fingerstick 2023 9:53 PM CDT [facility] Blood BLOOD SPECIMEN / Unknown 08/07/2024 9:51 PM CDT 08/07/2024 9:52 PM CDT Rob Cruz MD LAB - POINT OF CARE ORDERABLES Performing Organization Address City/[facility]/ZIP Co de Phone Number [address] [address], [place] [phone] * (ABNORMAL) GLUCOSE - POINT OF CARE (08/07/2024 11:16 AM CDT) Glucose WB/POC 164(H) 70 - 115 mg/dL 08/07/2024 11:31 AM CDT [facility] Specimen Type Cap Fingerstick 2023 11:31 AM CDT [facility] Blood BLOOD SPECIMEN / Unknown 08/07/2024 11:16 AM CDT 08/07/2024 11:31 AM CDT Rob Cruz MD LAB - POINT OF CARE ORDERABLES [facility] [address] [place] [address], [place] [phone] * (ABNORMAL) GLUCOSE - POINT OF CARE (08/07/2024 7:39 AM CDT) Glucose WB/POC 206(H) 70 - 115 mg/dL 08/07/2024 8:20 AM CDT [facility] Specimen Type Cap Fingerstick 2023 8:20 AM CDT [facility] Blood BLOOD SPECIMEN / Unknown 08/07/2024 7:39 AM CDT 08/07/2024 8:20 AM CDT Rob Cruz MD LAB - POINT OF CARE ORDERABLES [facility] [address] [place] [address], [place] [phone] * PTT [facility] (08/07/2024 5:47 AM CDT) APTT 35.0 23.0 - 38.4 Seconds 08/07/2024 7:13 AM CDT [facility] Comment:Suggested therapeuti c range for full dose I.V. unfractionated heparin therapy for venous thromboembolism is 71 to 109 seconds. Blood BLOOD SPECIMEN / Unknown Lab Venipuncture / Unknown 08/07/2024 5:47 AM CDT 08/07/2024 6:37 AM CDT Geronimo Burleson MD LAB - COAGULAT ION ORDERABLES Performing Organization Address [facility] Co de Phone Number [address] [address], [place] [phone] * (ABNORMAL) PHOSPHORUS BLOOD (08/07/2024 5:47 AM CDT) Phosphorus 5.9(H) 2.9 - 5.1 mg/dL 08/07/2024 7:19 AM CDT [facility] Blood BLOOD SPECIMEN / Unknown Lab Venipuncture / Unknown 08/07/2024 5:47 AM CDT 08/07/2024 6:37 AM CDT Rob Cruz MD LAB - CHEMISTRY DIVINA OLVERA Performing Organization Address [facility] Co de Phone Number [address] [address], [place] [phone] * MAGNESIUM BLOOD (08/07/2024 5:47 AM CDT) Magnesium 2.3 1.6 - 2.6 mg/dL 08/07/2024 7:19 AM CDT [facility] Blood BLOOD SPECIMEN / Unknown Lab Venipuncture / Unknown 08/07/2024 5:47 AM CDT 08/07/2024 6:37 AM CDT Rob Cruz MD LAB - CHEMISTRY DIVINA OLVERA Performing Organization Address [facility] Co de Phone Number [address] [address], [place] [phone] * (ABNORMAL) COMPREHENSIVE METABOLIC PANEL (08/07/2024 5:47 AM CDT) BUN 33(H) 7 - 26 mg/dL 08/07/2024 7:24 AM CDT [facility] Creatinine 6.99(H) 0.56 - 0.96 mg/dL 08/07/2024 7:24 AM [facility] Sodium 138 136 - 145 mmol/L 08/07/2024 7:24 AM [facility] Potassium 4.2 3.5 - 4.5 mmol/L 08/07/2024 7:24 AM [facility] Chloride 98 98 - 107 mmol/L 08/07/2024 7:24 AM [facility] CO2 26 22 - 29 mmol/L 08/07/2024 7:24 AM [facility] Glucose 218(H) 70 - 115 mg/dL 08/07/2024 7:24 AM [facility] Calcium 8.9 8.4 - 10.2 mg/dL 08/07/2024 7:24 AM [facility] Protein Total 7.9 6.0 - 8.3 g/dL 08/07/2024 7:24 AM [facility] Albumin 2.1(L) 3.4 - 5.0 g/dL 08/07/2024 7:24 AM [facility] Bilirubin Total 0.2 0.2 - 1.2 mg/dL 08/07/2024 7:24 AM [facility] Alkaline Phosphatase 106 40 - 150 U/L 08/07/2024 7:24 AM [facility] ALT <5(L) 5 - 55 U/L 08/07/2024 7:24 AM [facility] AST 10 5 - 34 U/L 08/07/2024 7:24 AM [facility] Anion Gap 14 6 - 16 08/07/2024 7:24 AM [facility] BUN/Creatinine Ratio 5(L) 7 - 23 08/07/2024 7:24 AM [facility] Osmolality Calculated 300(H) 275 - 295 mOsm/kg 08/07/2024 7:24 AM [facility] Albumin/Globulin Ratio 0.4(L) 1.1 - 2.3 08/07/2024 7:24 AM [facility] eGFR by CKD-EPI 7(L) >=90 mL/min/1.7 3 m2 08/07/2024 7:24 AM [facility] Blood BLOOD SPECIMEN / Unknown Lab Venipuncture / Unknown 08/07/2024 5:47 AM CDT 08/07/2024 6:37 AM CDT Rob Cruz MD LAB - CHEMISTRY DIVINA OLVERA [facility] [address] [place] [address], [facility] [phone] * (ABNORMAL) CBC W AUTO DIFFERENTIAL (08/07/2024 5:47 AM CDT) WBC 12.1(H) 4.0 - 10.7 x10E9/L 08/07/2024 7:09 AM [facility] RBC Count 3.24(L) 3.90 - 5.20 x10E12/L 08/07/2024 7:09 AM [facility] Hemoglobin 9.5(L) 11.9 - 15.8 g/dL 08/07/2024 7:09 AM [facility] Hematocrit 31.3(L) 34.8 - 46.1 % 08/07/2024 7:09 AM [facility] MCV 96.6 80.0 - 98.0 fL 08/07/2024 7:09 AM [facility] MCH 29.3 26.7 - 33.6 pg 08/07/2024 7:09 AM [facility] MCHC 30.4(L) 31.7 - 36.3 g/dL 08/07/2024 7:09 AM [facility] RDW-CV 13.7 11.3 - 14.8 % 08/07/2024 7:09 AM [facility] Platelet Count 468(H) 150 - 420 x10E9/L 08/07/2024 7:09 AM [facility] MPV 9.1 7.8 - 11.4 fL 08/07/2024 7:09 AM [facility] Neutrophil % 58.3 41.0 - 74.0 % 08/07/2024 7:09 AM [facility] Lymphocyte % 20.6 17.0 - 47.0 % 08/07/2024 7:09 AM [facility] Monocyte % 10.7 3.0 - 11.0 % 08/07/2024 7:09 AM [facility] Eosinophil % 7.6(H) 0.0 - 7.0 % 08/07/2024 7:09 AM [facility] Basophil % 0.6 0.0 - 1.6 % 08/07/2024 7:09 AM [facility] Immature Granulocytes % 2.2(H) 0.0 - 1.0 % 08/07/2024 7:09 AM [facility] Neutrophil Absolute 7.04 1.60 - 7.50 x10E9/L 08/07/2024 7:09 AM [facility] Lymphocyte Absolute 2.49 1.00 - 4.40 x10E9/L 08/07/2024 7:09 AM [facility] Monocyte Absolute 1.29(H) 0.15 - 1.00 x10E9/L 08/07/2024 7:09 AM [facility] Eosinophil Absolute 0.92(H) 0.00 - 0.60 x10E9/L 08/07/2024 7:09 AM [facility] Basophil Absolute 0.07 0.00 - 0.13 x10E9/L 08/07/2024 7:09 AM [facility] Blood BLOOD SPECIMEN / Unknown Lab Venipuncture / Unknown 08/07/2024 5:47 AM CDT 08/07/2024 6:37 AM CDT Rob Cruz MD LAB - HEMATOLOGY ORD ERABLES [facility] [address] [place] [address], [facility] [phone] * (ABNORMAL) GLUCOSE - POINT OF CARE (08/06/2024 8:34 PM CDT) Pathologist [facility] Glucose WB/POC 173(H) 70 - 115 mg/dL 08/06/2024 8:36 PM [facility] Specimen Type Cap Fingerstick 2023 8:36 PM CDT [facility] Blood BLOOD SPECIMEN / Unknown 08/06/2024 8:34 PM CDT 08/06/2024 8:36 PM CDT Rob Cruz MD LAB - POINT OF CARE ORDERABLES Performing Organization Address [facility]/ZIP Co de Phone Number [address] [address], [facility] [phone] * (ABNORMAL) GLUCOSE - POINT OF CARE (08/06/2024 4:21 PM CDT) Glucose WB/POC 168(H) 70 - 115 mg/dL 08/06/2024 4:30 PM CDT [facility] Specimen Type Cap Fingerstick 2023 4:30 PM CDT [facility] Blood BLOOD SPECIMEN / Unknown 08/06/2024 4:21 PM CDT 08/06/2024 4:30 PM CDT Rob Cruz MD LAB - POINT OF CARE ORDERABLES Performing Organization Address City/[facility]/ZIP Co de Phone Number [address] [address], [facility] [phone] * IR Central Line Insert Tunnel (08/06/2024 [...] evaluation, please review the evaluation forms in EPIC. For details on monitored clinical parameters during the intra-service sedation time, please review the procedure nurse documentation in EPIC. > Interpreting Provider: Ingrid Aguillon MD on [...] bacteremia N18.6: ESRD (end stage renal disease) ([facility]) [employer] Operator: Candy Aguillon M.D. Attending: Candy Aguillon M.D. Board Saw Runner: Shaun Gomez M.D. Procedures performed: 1. Insertion [...] central veins under fluoroscopic guidance. ??A 5 Citizen [place] trocar was placed and a 0.035 guidewire [...] evaluation, please review the evaluation forms in [facility]. For details on monitored clinical parameters during the intra-service sedation time, please review the procedure nurse documentation in [facility]. Procedure Note Artie Aguillon MD - 08/06/2024 PROCEDURE: IR CENTRAL LINE INSERT TUNNEL DATE/TIME OF EXAM: 08/06/2024 9:27 AM CLINICAL INFORMATION: None relevant/not provided if blank. Indication: R78.81: MRSA bacteremia B95.62: MRSA bacteremia N18.6: ESRD (end stage renal disease) ([facility]) [employer] Operator: Candy Aguillon M.D. Attending: Candy Aguillon M.D. Board Saw Runner: Shaun Gomez M.D. Procedures performed: 1. Insertion [...] central veins under fluoroscopic guidance. A 5 Citizen [place] trocar was placed and a 0.035 guidewire [...] response to care. Intra-service sedation start time bov0018 and end time was 1212 during which I was present. Total physician intra-service sedation time was 32 minutes. For details on pre-moderate sedation and post-moderate sedation patient evaluation, please reviewthe evaluation forms in [facility]. For details on monitored clinical parameters during the intra-service sedation time, please review the procedurenurse documentation in [facility]. Impression: Successful placement of left internal jugular tunneleddialysis catheter. I was present for the entire procedure. > Interpreting Provider: Ingrid Aguillon MD on 08/06/2024 12:20 PM Rob Cruz MD IR ORDERABLES * (ABNORMAL) GLUCOSE - POINT OF CARE (08/06/2024 7:25 AM CDT) Glucose WB/POC 211(H) 70 - 115 mg/dL 08/06/2024 11:26 AM CDT [facility] Specimen Type Cap Fingerstick 2023 11:26 AM CDT [facility] Blood BLOOD SPECIMEN / Unknown 08/06/2024 7:25 AM CDT 08/06/2024 11:26 AM CDT Rob Cruz MD LAB - POINT OF CARE ORDERABLES [facility] [address] [place] [address], [facility] [phone] * (ABNORMAL) PTT [facility] (08/06/2024 4:02 AM CDT) Pathologist [facility] APTT 99.3(H) 23.0 - 38.4 Seconds 08/06/2024 5:15 AM CDT [facility] Comment:Suggested therapeuti c range for full dose I.V. unfractionated heparin therapy for venous thromboembolism is 71 to 109 seconds. Blood BLOOD SPECIMEN / Unknown Venipuncture / Unknown 08/06/2024 4:02 AM CDT 08/06/2024 4:46 AM CDT Geronimo Burleson MD LAB - COAGULAT ION ORDERABLES Performing Organization Address City/[facility]/ZIP Co de Phone Number [facility] [address] [place] [address], [facility] [phone] * MAGNESIUM BLOOD (08/06/2024 4:02 AM CDT) [facility] Magnesium 2.1 1.6 - 2.6 mg/dL 08/06/2024 5:16 AM CDT [facility] Blood BLOOD SPECIMEN / Unknown Venipuncture / Unknown 08/06/2024 4:02 AM CDT 08/06/2024 4:29 AM CDT Rob Cruz MD LAB - CHEMISTRY DIVINA OLVERA [facility] [address] [place] [address], [facility] [phone] * (ABNORMAL) RENAL FUNCTION PANEL (08/06/2024 4:02 AM CDT) [facility] BUN 18 7 - 26 mg/dL 08/06/2024 5:16 AM CDT [facility] Creatinine 4.60(H) 0.56 - 0.96 mg/dL 08/06/2024 5:16 AM CDT [facility] Sodium 135(L) 136 - 145 mmol/L 08/06/2024 5:16 AM CDT [facility] Potassium 4.2 3.5 - 4.5 mmol/L 08/06/2024 5:16 AM [facility] Chloride 96(L) 98 - 107 mmol/L 08/06/2024 5:16 AM [facility] CO2 29 22 - 29 mmol/L 08/06/2024 5:16 AM [facility] Glucose 230(H) 70 - 115 mg/dL 08/06/2024 5:16 AM [facility] Albumin 2.1(L) 3.4 - 5.0 g/dL 08/06/2024 5:16 AM [facility] Calcium 8.7 8.4 - 10.2 mg/dL 08/06/2024 5:16 AM [facility] Phosphorus 4.7 2.9 - 5.1 mg/dL 08/06/2024 5:16 AM [facility] Anion Gap 10 6 - 16 08/06/2024 5:16 AM [facility] BUN/Creatinine Ratio 4(L) 7 - 23 08/06/2024 5:16 AM [facility] Osmolality Calculated 289 275 - 295 mOsm/kg 08/06/2024 5:16 AM [facility] eGFR by CKD-EPI 12(L) >=90 mL/min/1.7 3 m2 08/06/2024 5:16 AM [facility] Blood BLOOD SPECIMEN / Unknown Venipuncture / Unknown 08/06/2024 4:02 AM CDT 08/06/2024 4:29 AM T Rob Cruz MD LAB - CHEMISTRY DIVINA OLVERA [facility] Organization Address City/State/ZIP Co de Phone Number [facility] [address] [place] [address], [facility] [phone] * (ABNORMAL) CBC W/O DIFFERENTIAL (08/06/2024 4:02 AM CDT) WBC 17.2(H) 4.0 - 10.7 x10E9/L 08/06/2024 4:52 AM [facility] RBC Count 2.98(L) 3.90 - 5.20 x10E12/L 08/06/2024 4:52 AM [facility] Hemoglobin 8.6(L) 11.9 - 15.8 g/dL 08/06/2024 4:52 AM [facility] Hematocrit 28.9(L) 34.8 - 46.1 % 08/06/2024 4:52 AM [facility] MCV 97.0 80.0 - 98.0 fL 08/06/2024 4:52 AM [facility] MCH 28.9 26.7 - 33.6 pg 08/06/2024 4:52 AM [facility] MCHC 29.8(L) 31.7 - 36.3 g/dL 08/06/2024 4:52 AM [facility] RDW-CV 13.6 11.3 - 14.8 % 08/06/2024 4:52 AM [facility] Platelet Count 608(H) 150 - 420 x10E9/L 08/06/2024 4:52 AM [facility] MPV 9.2 7.8 - 11.4 fL 08/06/2024 4:52 AM [facility] Blood BLOOD SPECIMEN / Unknown Venipuncture / Unknown 08/06/2024 4:02 AM CDT 08/06/2024 4:48 AM CDT Rob Cruz MD LAB - HEMATOLOGY ORD ERABLES [facility] [address] [place] [address], [facility] [phone] * XR Chest 1Vw Portable (08/05/2024 8:57 [...] 7 - 26 mg/dL 08/05/2024 10:04 PM [facility] Creatinine 3.42(H) 0.56 - 0.96 mg/dL 08/05/2024 10:04 PM [facility] Sodium 134(L) 136 - 145 mmol/L 08/05/2024 10:04 PM [facility] Potassium 3.7 3.5 - 4.5 mmol/L 08/05/2024 10:04 PM [facility] Chloride 97(L) 98 - 107 mmol/L 08/05/2024 10:04 PM [facility] CO2 23 22 - 29 mmol/L 08/05/2024 10:04 PM [facility] Glucose 218(H) 70 - 115 mg/dL 08/05/2024 10:04 PM [facility] Calcium 9.3 8.4 - 10.2 mg/dL 08/05/2024 10:04 PM CDT [facility] Anion Gap 14 6 - 16 08/05/2024 10:04 PM CDT [facility] BUN/Creatinine Ratio 4(L) 7 - 23 08/05/2024 10:04 PM CDT [facility] Osmolality Calculated 285 275 - 295 mOsm/kg 08/05/2024 10:04 PM CDT [facility] eGFR by CKD-EPI 18(L) >=90 mL/min/1.7 3 m2 08/05/2024 10:04 PM CDT [facility] Blood BLOOD SPECIMEN / Unknown Venipuncture / Unknown 08/05/2024 8:32 PM CDT 08/05/2024 8:44 PM CDT Mateo Daugherty MD LAB - CHEMISTRY DIVINA OL[facility]A Performing Organization Address City/[facility]/ZIP Co de Phone Number [facility] [address] [place] [phone], [place] [phone] * LACTIC ACID BLOOD (08/05/2024 8:32 PM CDT) Lactic Acid-Stat 1.2 <=2.0 mmol/L 08/05/2024 9:14 PM CDT [facility] Blood BLOOD SPECIMEN / Unknown Venipuncture / Unknown 08/05/2024 8:32 PM CDT 08/05/2024 8:44 PM CDT Mateo Daugherty MD LAB - CHEMISTRY DIVINA OLVERA [facility] [address] [place] [phone], [place] [phone] * (ABNORMAL) BLOOD GASES ART + COOX PANEL (08/05/2024 8:32 PM CDT) pH Arterial 7.44 7.35 - 7.45 pH 08/05/2024 8:44 PM CDT [facility] pO2 Arterial 99 80 - 100 mmHg 08/05/2024 8:44 PM CDT [facility] pCO2 Arterial 40 35 - 45 mmHg 8:44 PM [facility] HCO3 Arterial 27.2 20.0 - 30.0 mmol/L 08/05/2024 8:44 PM [facility] BE Arterial 2.8(H) -2.0 - 2.0 mmol/L 08/05/2024 8:44 PM [facility] Oxyhemoglobin Arterial 96.4 % 08/05/2024 8:44 PM [facility] Dexoyhemoglobin (HHB) % 2.5 % 08/05/2024 8:44 PM [facility] Methemoglobin <0.8 0.0 - 2.0 % 08/05/2024 8:44 PM [facility] Carboxyhemoglobin 1.1 0.0 - 2.0 % 2023 8:44 PM [facility] O2 Content Arterial 15.1 Interpret within clinical context ml/dL 08/05/2024 8:44 PM [facility] Hemoglobin by COOX 11.0(L) 12.0 - 15.6 g/dL 08/05/2024 8:44 PM [facility] O2 Saturation Arterial 98 90 - 100 % 08/05/2024 8:44 PM [facility] FI O2 Arterial 15.0 % 08/05/2024 8:44 PM [facility] Blood, arterial ARTERIAL BLOOD SPECIMEN / Unknown Arterial Puncture / Unknown 08/05/2024 8:32 PM CDT 08/05/2024 8:38 PM [facility] - 08/05/2024 8:44 PM [facility] Carboxyhemoglobin Normal Concentration: Non-smokers: 0-2%; Smokers: 0-9%; Toxic: >20% Mateo Daugherty MD LAB - BLOOD GASES OR DERABLES [facility] [address] [place] [phone], [facility] [phone] * (ABNORMAL) GLUCOSE - POINT OF CARE (08/05/2024 8:19 PM CDT) [facility] Glucose WB/POC 173(H) 70 - 115 mg/dL 08/05/2024 8:20 PM CDT [facility] Specimen Type Cap Fingerstick 2023 8:20 PM CDT [facility] Blood BLOOD SPECIMEN / Unknown 08/05/2024 8:19 PM CDT 08/05/2024 8:20 PM CDT Rob Cruz MD LAB - POINT OF CARE ORDERABLES Performing Organization Address City/[facility]/ZIP Co de Phone Number [address] [phone], [place] [phone] * (ABNORMAL) GLUCOSE - POINT OF CARE (08/05/2024 11:35 AM CDT) Glucose WB/POC 154(H) 70 - 115 mg/dL 08/05/2024 11:43 AM CDT [facility] Specimen Type Cap Fingerstick 2023 11:43 AM CDT [facility] Blood BLOOD SPECIMEN / Unknown 08/05/2024 11:35 AM CDT 08/05/2024 11:43 AM CDT Rob Cruz MD LAB - POINT OF CARE ORDERABLES Performing Organization Address [facility]/ZIP Co de Phone Number [address] [address], [place] [phone] * (ABNORMAL) GLUCOSE - POINT OF CARE (08/05/2024 8:19 AM CDT) Glucose WB/POC 154(H) 70 - 115 mg/dL 08/05/2024 11:43 AM CDT [facility] Specimen Type Cap Fingerstick 2023 11:43 AM CDT [facility] Blood BLOOD SPECIMEN / Unknown 08/05/2024 8:19 AM CDT 08/05/2024 11:43 AM CDT Rob Cruz MD LAB - POINT OF CARE ORDERABLES Performing Organization Address City/[facility]/ZIP Co de Phone Number [address] [address], [facility] [phone] * (ABNORMAL) PTT [facility] (08/05/2024 4:31 AM CDT) [facility] APTT 97.3(H) 23.0 - 38.4 Seconds 08/05/2024 5:03 AM CDT [facility] Comment:Suggested therapeuti c range for full dose I.V. unfractionated heparin therapy for venous thromboembolism is 71 to 109 seconds. Blood BLOOD SPECIMEN / Unknown Venipuncture / Unknown 08/05/2024 4:31 AM CDT 08/05/2024 4:38 AM CDT Geronimo Burleson MD LAB - COAGULAT ION ORDERABLES [facility] [address] [place] [address], [facility] [phone] * MAGNESIUM BLOOD (08/05/2024 4:31 AM CDT) [facility] Magnesium 2.2 1.6 - 2.6 mg/dL 08/05/2024 5:04 AM CDT [facility] Blood BLOOD SPECIMEN / Unknown Venipuncture / Unknown 08/05/2024 4:31 AM CDT 08/05/2024 4:37 AM CDT Rob Cruz MD LAB - CHEMISTRY DIVINA OLVERA [facility] [address] [place] [address], [facility] [phone] * (ABNORMAL) CBC W/O DIFFERENTIAL (08/05/2024 4:31 AM CDT) [facility] WBC 12.5(H) 4.0 - 10.7 x10E9/L 08/05/2024 4:48 AM CDT [facility] RBC Count 3.00(L) 3.90 - 5.20 x10E12/L 08/05/2024 4:48 AM CDT [facility] Hemoglobin 8.6(L) 11.9 - 15.8 g/dL 08/05/2024 4:48 AM [facility] Hematocrit 29.2(L) 34.8 - 46.1 % 08/05/2024 4:48 AM [facility] MCV 97.3 80.0 - 98.0 fL 08/05/2024 4:48 AM [facility] MCH 28.7 26.7 - 33.6 pg 08/05/2024 4:48 AM [facility] MCHC 29.5(L) 31.7 - 36.3 g/dL 08/05/2024 4:48 AM [facility] RDW-CV 13.8 11.3 - 14.8 % 08/05/2024 4:48 AM [facility] Platelet Count 498(H) 150 - 420 x10E9/L 08/05/2024 4:48 AM [facility] MPV 8.9 7.8 - 11.4 fL 08/05/2024 4:48 AM [facility] Blood BLOOD SPECIMEN / Unknown Venipuncture / Unknown 08/05/2024 4:31 AM CDT 08/05/2024 4:31 AM CDT Rob Cruz MD LAB - HEMATOLOGY ORD ERABLES [facility] [address] [place] [address], [facility] [phone] * (ABNORMAL) RENAL FUNCTION PANEL (08/05/2024 4:31 AM CDT) BUN 30(H) 7 - 26 mg/dL 08/05/2024 5:21 AM [facility] Creatinine 6.11(H) 0.56 - 0.96 mg/dL 08/05/2024 5:21 AM [facility] Sodium 138 136 - 145 mmol/L 08/05/2024 5:21 AM [facility] Potassium 4.3 3.5 - 4.5 mmol/L 08/05/2024 5:21 AM [facility] Chloride 99 98 - 107 mmol/L 08/05/2024 5:21 AM [facility] CO2 30(H) 22 - 29 mmol/L 08/05/2024 5:21 AM [facility] Glucose 145(H) 70 - 115 mg/dL 08/05/2024 5:21 AM [facility] Albumin 1.8(L) 3.4 - 5.0 g/dL 08/05/2024 5:21 AM [facility] Calcium 8.9 8.4 - 10.2 mg/dL 08/05/2024 5:21 AM [facility] Phosphorus 6.3(H) 2.9 - 5.1 mg/dL 08/05/2024 5:21 AM [facility] Anion Gap 9 6 - 16 08/05/2024 5:21 AM [facility] BUN/Creatinine Ratio 5(L) 7 - 23 08/05/2024 5:21 AM [facility] Osmolality Calculated 295 275 - 295 mOsm/kg 08/05/2024 5:21 AM [facility] eGFR by CKD-EPI 9(L) >=90 mL/min/1.7 3 m2 08/05/2024 5:21 AM [facility] Blood BLOOD SPECIMEN / Unknown Venipuncture / Unknown 08/05/2024 4:31 AM CDT 08/05/2024 4:37 AM CDT Rob Cruz MD LAB - CHEMISTRY DIVINA OLVERA [facility] Organization Address City/State/[facility] Co de Phone Number [facility] [address] [place] [address], [facility] [phone] * VANCOMYCIN LEVEL RANDOM (08/05/2024 4:31 AM CDT) Vancomycin Random 14.6 Therapeutic Ranges not established for random specimens ug/mL 08/05/2024 5:34 AM T [facility] Blood BLOOD SPECIMEN / Unknown Venipuncture / Unknown 08/05/2024 4:31 AM CDT 08/05/2024 4:34 AM CDT Narrative [facility] - 08/05/2024 5:34 AM CDT See institution protocol. Geronimo Burleson MD LAB - CHEMISTR Y ORDERABLES Performing Organization Address City/[facility]/ZIP Co de Phone Number [address] [address], [place] [phone] * (ABNORMAL) PTT [facility] (08/04/2024 5:51 PM CDT) Pathologist [facility] APTT 74.2(H) 23.0 - 38.4 Seconds 08/04/2024 6:38 PM CDT [facility] Comment:Suggested therapeuti c range for full dose I.V. unfractionated heparin therapy for venous thromboembolism is 71 to 109 seconds. Blood BLOOD SPECIMEN / Unknown Venipuncture / Unknown 08/04/2024 5:51 PM CDT 08/04/2024 6:05 PM CDT Rob Cruz MD LAB - COAGULATION OR DERABLES Performing Organization Address [facility] Co de Phone Number [address] [address], [place] [phone] * (ABNORMAL) GLUCOSE - POINT OF CARE (08/04/2024 4:13 PM CDT) [facility] Glucose WB/POC 167(H) 70 - 115 mg/dL 08/04/2024 4:18 PM CDT [facility] Specimen Type Cap Fingerstick 2023 4:18 PM CDT [facility] Blood BLOOD SPECIMEN / Unknown 08/04/2024 4:13 PM CDT 08/04/2024 4:18 PM CDT Rob Cruz MD LAB - POINT OF CARE ORDERABLES Performing Organization Address [facility]/ZIP Co de Phone Number [address] [address], [place] [phone] * CULTURE BLOOD (08/04/2024 11:57 AM CDT) [facility] Culture No growth day 5 CHARLES 08/09/2024 4:31 PM CDT [facility] Blood PERIPHERAL BLOOD / Unknown Lab Venipuncture / Unknown 08/04/2024 11:57 AM CDT 08/04/2024 12:56 PM CDT Rob Cruz MD LAB - MICROBIOLOGY O DARRELL Performing Organization Address City/[facility]/ZIP Co de Phone Number [facility] [address] [place] [address], [facility] [phone] * CULTURE BLOOD (08/04/2024 11:45 AM CDT) Pathologist [facility] Culture No growth day 5 CHARLES 08/09/2024 4:31 PM CDT [facility] Blood PERIPHERAL BLOOD / Unknown Lab Venipuncture / Unknown 08/04/2024 11:45 AM CDT 08/04/2024 12:55 PM CDT Rob Cruz MD LAB - MICROBIOLOGY O DARRELL Performing Organization Address [facility] Co de Phone Number [facility] [address] [place] [address], [facility] [phone] * (ABNORMAL) GLUCOSE - POINT OF CARE (08/04/2024 11:39 AM CDT) Pathologist [facility] Glucose WB/POC 137(H) 70 - 115 mg/dL 08/04/2024 11:51 AM CDT [facility] Specimen Type Cap Fingerstick 2023 11:51 AM CDT [facility] Blood BLOOD SPECIMEN / Unknown 08/04/2024 11:39 AM CDT 08/04/2024 11:51 AM CDT Rob Cruz MD LAB - POINT OF CARE ORDERABLES Performing Organization Address City/[facility]/ZIP Co de Phone Number [facility] [address] [place] [address], [place] [phone] * (ABNORMAL) PTT [facility] (08/04/2024 11:28 AM CDT) APTT 94.4(H) 23.0 - 38.4 Seconds 08/04/2024 1:22 PM CDT [facility] Comment:Suggested therapeuti c range for full dose I.V. unfractionated heparin therapy for venous thromboembolism is 71 to 109 seconds. Blood BLOOD SPECIMEN / Unknown Venipuncture / Unknown 08/04/2024 11:28 AM CDT 08/04/2024 12:54 PM CDT Rob Cruz MD LAB - COAGULATION OR DERABLES Performing Organization Address [facility] Co de Phone Number [facility] [address] [place] [address], [place] [phone] * (ABNORMAL) GLUCOSE - POINT OF CARE (08/04/2024 7:32 AM CDT) Glucose WB/POC 170(H) 70 - 115 mg/dL 08/04/2024 11:51 AM CDT [facility] Specimen Type Cap Fingerstick 2023 11:51 AM CDT [facility] Blood BLOOD SPECIMEN / Unknown 08/04/2024 7:32 AM CDT 08/04/2024 11:51 AM CDT Rob Cruz MD LAB - POINT OF CARE ORDERABLES Performing Organization Address [facility] de Phone Number [address] [address], [place] [phone] * (ABNORMAL) PTT [facility] (08/04/2024 3:55 AM CDT) APTT 156.7(HH) 23.0 - 38.4 Seconds 08/04/2024 4:40 AM CDT [facility] Comment:Suggested therapeuti c range for full dose I.V. unfractionated heparin therapy for venous thromboembolism is 71 to 109 seconds. Blood BLOOD SPECIMEN / Unknown Venipuncture / Unknown 08/04/2024 3:55 AM CDT 08/04/2024 4:11 AM CDT Rob Cruz MD LAB - COAGULATION OR DERABLES Performing Organization Address City/[facility] Co de Phone Number [facility] [address] [place] [address], [facility] [phone] * (ABNORMAL) PTT [facility] (08/04/2024 2:54 AM CDT) APTT 169.8() 23.0 - 38.4 Seconds 08/04/2024 4:12 AM [facility] Comment:Suggested therapeuti c range for full dose I.V. unfractionated heparin therapy for venous thromboembolism is 71 to 109 seconds. Blood BLOOD SPECIMEN / Unknown Lab Venipuncture / Unknown 08/04/2024 2:54 AM CDT 08/04/2024 3:39 AM CDT Geronimo Burleson MD LAB - COAGULAT ION ORDERABLES [facility] [address] [place] [address], [facility] [phone] * (ABNORMAL) RENAL FUNCTION PANEL (08/04/2024 2:54 AM CDT) Pathologist [facility] BUN 19 7 - 26 mg/dL 08/04/2024 4:09 AM [facility] Creatinine 4.50(H) 0.56 - 0.96 mg/dL 08/04/2024 4:09 AM [facility] Sodium 137 136 - 145 mmol/L 08/04/2024 4:09 AM [facility] Potassium 4.1 3.5 - 4.5 mmol/L 08/04/2024 4:09 AM [facility] Chloride 98 98 - 107 mmol/L 08/04/2024 4:09 AM [facility] CO2 28 22 - 29 mmol/L 08/04/2024 4:09 AM [facility] Glucose 172(H) 70 - 115 mg/dL 08/04/2024 4:09 AM [facility] Albumin 1.9(L) 3.4 - 5.0 g/dL 08/04/2024 4:09 AM [facility] Calcium 8.9 8.4 - 10.2 mg/dL 08/04/2024 4:09 AM [facility] Phosphorus 4.4 2.9 - 5.1 mg/dL 08/04/2024 4:09 AM [facility] Anion Gap 11 6 - 16 08/04/2024 4:09 AM [facility] BUN/Creatinine Ratio 4(L) 7 - 23 08/04/2024 4:09 AM [facility] Osmolality Calculated 290 275 - 295 mOsm/kg 08/04/2024 4:09 AM [facility] eGFR by CKD-EPI 13(L) >=90 mL/min/1.7 3 m2 08/04/2024 4:09 AM [facility] Blood BLOOD SPECIMEN / Unknown Lab Venipuncture / Unknown 08/04/2024 2:54 AM CDT 08/04/2024 3:41 AM CDT Rob Cruz MD LAB - CHEMISTRY ORDMichaela OLVERA Performing Organization Address [facility] Co de Phone Number [address] [address], [employer] [phone] * PT-INR [facility] (08/04/2024 2:54 AM CDT) PT 14.6 12.1 - 14.8 Seconds 08/04/2024 4:12 AM [facility] INR 1.2 See Comment 08/04/2024 4:12 AM [facility] Comment:The suggested therap eutic range for standard coumadin (warfarin) therapy is an INR of 2.0-3.0. For high-risk patients (Mechanical Mitral Valve Prosthesis, etc.), the suggested prophylactic therapeutic range is an INR of 2.5-3.5. Blood BLOOD SPECIMEN / Unknown Lab Venipuncture / Unknown 08/04/2024 2:54 AM CDT 08/04/2024 3:39 AM CDT Rob Cruz MD LAB - COAGULATION OR DERABLES Performing Organization Address [facility]/ZIP Co de Phone Number [address] [address], [facility] [phone] * MAGNESIUM BLOOD (08/04/2024 2:54 AM CDT) Magnesium 2.0 1.6 - 2.6 mg/dL 08/04/2024 4:09 AM CDT [facility] Blood BLOOD SPECIMEN / Unknown Lab Venipuncture / Unknown 08/04/2024 2:54 AM CDT 08/04/2024 3:41 AM CDT Rob Cruz MD LAB - CHEMISTRY ORDE RABLES [facility] [address] [place] [address], [facility] [phone] * (ABNORMAL) GLUCOSE - POINT OF CARE (08/03/2024 9:23 PM CDT) Pathologist [facility] Glucose WB/POC 147(H) 70 - 115 mg/dL 08/04/2024 12:20 AM CDT [facility] Specimen Type Cap Fingerstick 2023 12:20 AM CDT [facility] Blood BLOOD SPECIMEN / Unknown 08/03/2024 9:23 PM CDT 08/04/2024 12:20 AM CDT Rob Cruz MD LAB - POINT OF CARE ORDERABLES Performing Organization Address City/[facility]/ZIP Co de Phone Number [address] [address], [facility] [phone] * (ABNORMAL) PTT [facility] (08/03/2024 8:35 PM CDT) APTT 103.7(HH) 23.0 - 38.4 Seconds 08/03/2024 9:22 PM CDT [facility] Comment:Suggested therapeuti c range for full dose I.V. unfractionated heparin therapy for venous thromboembolism is 71 to 109 seconds. Blood BLOOD SPECIMEN / Unknown Venipuncture / Unknown 08/03/2024 8:35 PM CDT 08/03/2024 8:44 PM CDT Rob Cruz MD LAB - COAGULATION OR DERABLES [facility] [address] [place] [address], [place] [phone] * (ABNORMAL) GLUCOSE - POINT OF CARE (08/03/2024 5:47 PM CDT) Glucose WB/POC 168(H) 70 - 115 mg/dL 08/03/2024 5:49 PM CDT [facility] Specimen Type Cap Fingerstick 2023 5:49 PM CDT [facility] Blood BLOOD SPECIMEN / Unknown 08/03/2024 5:47 PM CDT 08/03/2024 5:49 PM CDT Rob Cruz MD LAB - POINT OF CARE ORDERABLES Performing Organization Address [facility]/ZIP Co de Phone Number [address] [address], [place] [phone] * (ABNORMAL) PTT [facility] (08/03/2024 11:07 AM CDT) APTT 118.0(HH) 23.0 - 38.4 Seconds 08/03/2024 11:53 AM CDT [facility] Comment:Suggested therapeuti c range for full dose I.V. unfractionated heparin therapy for venous thromboembolism is 71 to 109 seconds. Blood BLOOD SPECIMEN / Unknown Venipuncture / Unknown 08/03/2024 11:07 AM CDT 08/03/2024 11:19 AM CDT Rob Cruz MD LAB - COAGULATION OR DERABLES [address] [address], [place] [phone] * (ABNORMAL) GLUCOSE - POINT OF CARE (08/03/2024 7:51 AM CDT) Glucose WB/POC 131(H) 70 - 115 mg/dL 08/03/2024 11:56 AM CDT [facility] Specimen Type Cap Fingerstick 2023 11:56 AM CDT [facility] Blood BLOOD SPECIMEN / Unknown 08/03/2024 7:51 AM CDT 08/03/2024 11:56 AM CDT Rob Cruz MD LAB - POINT OF CARE ORDERABLES Performing Organization Address [facility] Co de Phone Number [address] [address], [facility] [phone] * (ABNORMAL) PTT [facility] (08/03/2024 5:38 AM CDT) APTT 150.1(HH) 23.0 - 38.4 Seconds 08/03/2024 7:19 AM CDT [facility] Comment:Suggested therapeuti c range for full dose I.V. unfractionated heparin therapy for venous thromboembolism is 71 to 109 seconds. Blood BLOOD SPECIMEN / Unknown Lab Venipuncture / Unknown 08/03/2024 5:38 AM CDT 08/03/2024 6:47 AM CDT Rob Cruz MD LAB - COAGULATION OR DERABLES Performing Organization Address [facility] Co de Phone Number [address] [address], [facility] [phone] * PT-INR [facility] (08/03/2024 5:38 AM CDT) PT 14.5 12.1 - 14.8 Seconds 08/03/2024 7:19 AM CDT [facility] INR 1.2 See Comment 08/03/2024 7:19 AM CDT [facility] Comment:The suggested therap eutic range for standard coumadin (warfarin) therapy is an INR of 2.0-3.0. For high-risk patients (Mechanical Mitral Valve Prosthesis, etc.), the suggested prophylactic therapeutic range is an INR of 2.5-3.5. Blood BLOOD SPECIMEN / Unknown Lab Venipuncture / Unknown 08/03/2024 5:38 AM CDT 08/03/2024 6:47 AM CDT Geronimo Burleson MD LAB - COAGULAT ION ORDERABLES [address] [address], [facility] [phone] * MAGNESIUM BLOOD (08/03/2024 5:38 AM CDT) Magnesium 2.1 1.6 - 2.6 mg/dL 08/03/2024 7:17 AM [facility] Blood BLOOD SPECIMEN / Unknown Lab Venipuncture / Unknown 08/03/2024 5:38 AM CDT 08/03/2024 6:50 AM CDT Geronimo Burleson MD LAB - CHEMISTR Y ORDERABLES Performing Organization Address City/[facility]/ZIP Co de Phone Number [address] [address], [facility] [phone] * (ABNORMAL) RENAL FUNCTION PANEL (08/03/2024 5:38 AM CDT) BUN 37(H) 7 - 26 mg/dL 08/03/2024 7:17 AM [facility] Creatinine 6.54(H) 0.56 - 0.96 mg/dL 08/03/2024 7:17 AM [facility] Sodium 136 136 - 145 mmol/L 08/03/2024 7:17 AM [facility] Potassium 4.0 3.5 - 4.5 mmol/L 08/03/2024 7:17 AM [facility] Chloride 100 98 - 107 mmol/L 08/03/2024 7:17 AM [facility] CO2 25 22 - 29 mmol/L 08/03/2024 7:17 AM [facility] Glucose 136(H) 70 - 115 mg/dL 08/03/2024 7:17 AM [facility] Albumin 1.7(L) 3.4 - 5.0 g/dL 08/03/2024 7:17 AM [facility] Calcium 8.3(L) 8.4 - 10.2 mg/dL 08/03/2024 7:17 AM [facility] Phosphorus 6.1(H) 2.9 - 5.1 mg/dL 08/03/2024 7:17 AM [facility] Anion Gap 11 6 - 16 08/03/2024 7:17 AM [facility] BUN/Creatinine Ratio 6(L) 7 - 23 08/03/2024 7:17 AM [facility] Osmolality Calculated 293 275 - 295 mOsm/kg 08/03/2024 7:17 AM [facility] eGFR by CKD-EPI 8(L) >=90 mL/min/1.7 3 m2 08/03/2024 7:17 AM [facility] Blood BLOOD SPECIMEN / Unknown Lab Venipuncture / Unknown 08/03/2024 5:38 AM CDT 08/03/2024 6:50 AM CDT Ralph Burt MD LAB - CHEMISTRY DIVINA OLVERA [address] [address], [place] [phone] * (ABNORMAL) PTT [facility] (08/03/2024 2:14 AM CDT) APTT 63.0(H) 23.0 - 38.4 Seconds 08/03/2024 2:55 AM CDT [facility] Comment:Suggested therapeuti c range for full dose I.V. unfractionated heparin therapy for venous thromboembolism is 71 to 109 seconds. Blood BLOOD SPECIMEN / Unknown Venipuncture / Unknown 08/03/2024 2:14 AM CDT 08/03/2024 2:30 AM CDT Rob Cruz MD LAB - COAGULATION OR DERABLES [address] [address], [place] [phone] * (ABNORMAL) GLUCOSE - POINT OF CARE (08/02/2024 8:50 PM CDT) Glucose WB/POC 281(H) 70 - 115 mg/dL 08/03/2024 7:58 AM CDT [facility] Specimen Type Cap Fingerstick 2023 7:58 AM CDT [facility] Blood BLOOD SPECIMEN / Unknown 08/02/2024 8:50 PM CDT 08/03/2024 7:57 AM CDT Kwaku Ellsworth MD LAB - POINT OF CARE ORDERABLES [address] [address], [place] [phone] * (ABNORMAL) PTT [facility] (08/02/2024 5:53 PM CDT) APTT 105.9(HH) 23.0 - 38.4 Seconds 08/02/2024 6:59 PM CDT [facility] Comment:Suggested therapeuti c range for full dose I.V. unfractionated heparin therapy for venous thromboembolism is 71 to 109 seconds. Blood BLOOD SPECIMEN / Unknown Venipuncture / Unknown 08/02/2024 5:53 PM CDT 08/02/2024 6:28 PM CDT Geronimo Burleson MD LAB - COAGULAT ION ORDERABLES Performing Organization Address City/[facility]/ZIP Co de Phone Number [address] [address], [place] [phone] * (ABNORMAL) GLUCOSE - POINT OF CARE (08/02/2024 12:28 PM CDT) Glucose WB/POC 167(H) 70 - 115 mg/dL 08/02/2024 4:22 PM CDT [facility] Specimen Type Arterial 08/02/2024 4:22 PM CDT [facility] Blood BLOOD SPECIMEN / Unknown 08/02/2024 12:28 PM CDT 08/02/2024 4:22 PM CDT Geronimo Burleson MD LAB - POINT OF CARE ORDERABLES Performing Organization Address City/[facility]/ZIP Co de Phone Number [facility] [address] [place] [address], [place] [phone] * CULTURE BLOOD (08/02/2024 9:02 AM CDT) Pathologist [facility] Culture No growth day 5 CHARLES 08/07/2024 10:30 AM CDT [facility]CRO[facility] Blood PERIPHERAL BLOOD / Unknown Lab Venipuncture / Unknown 08/02/2024 9:02 AM CDT 08/02/2024 9:22 AM CDT Geronimo Burleson MD LAB - MICROBIO LOGY ORDERABLES Performing Organization Address City/[facility]/ZIP Co de Phone Number [facility] [address] [place] [address], [facility] [phone] * (ABNORMAL) GLUCOSE - POINT OF CARE (08/02/2024 8:34 AM CDT) Pathologist [facility] Glucose WB/POC 150(H) 70 - 115 mg/dL 08/02/2024 11:58 AM CDT [facility] Specimen Type Arterial 08/02/2024 11:58 AM CDT [facility] Blood BLOOD SPECIMEN / Unknown 08/02/2024 8:34 AM CDT 08/02/2024 11:58 AM CDT Geronimo Burleson MD LAB - POINT OF CARE ORDERABLES Performing Organization Address City/[facility]/ZIP Co de Phone Number [facility] [address] [place] [address], [place] [phone] * (ABNORMAL) PTT [facility] (08/02/2024 8:04 AM CDT) Pathologist [facility] APTT 43.2(H) 23.0 - 38.4 Seconds 08/02/2024 8:37 AM CDT [facility] Comment:Suggested therapeuti c range for full dose I.V. unfractionated heparin therapy for venous thromboembolism is 71 to 109 seconds. Blood BLOOD SPECIMEN / Unknown Clinic Draw / Unknown 08/02/2024 8:04 AM CDT 08/02/2024 8:08 AM CDT Geronimo Burleson MD LAB - COAGULAT ION ORDERABLES [address] [address], [place] [phone] * PT-INR [facility] (08/02/2024 8:04 AM CDT) PT 13.3 12.1 - 14.8 Seconds 08/02/2024 8:37 AM CDT [facility] INR 1.0 See Comment 08/02/2024 8:37 AM CDT [facility] Comment:The suggested therap eutic range for standard coumadin (warfarin) therapy is an INR of 2.0-3.0. For high-risk patients (Mechanical Mitral Valve Prosthesis, etc.), the suggested prophylactic therapeutic range is an INR of 2.5-3.5. Blood BLOOD SPECIMEN / Unknown Clinic Draw / Unknown 08/02/2024 8:04 AM CDT 08/02/2024 8:08 AM CDT Geronimo Burleson MD LAB - COAGULAT ION ORDERABLES Performing Organization Address City/[facility]/ZIP Co de Phone Number [address] [address], [place] [phone] * MAGNESIUM BLOOD (08/02/2024 8:04 AM CDT) Magnesium 2.1 1.6 - 2.6 mg/dL 08/02/2024 8:41 AM CDT [facility] Blood BLOOD SPECIMEN / Unknown Clinic Draw / Unknown 08/02/2024 8:04 AM CDT 08/02/2024 8:10 AM CDT Geronimo Burleson MD LAB - CHEMISTR Y ORDERABLES [address] [address], [place] [phone] * (ABNORMAL) RENAL FUNCTION PANEL (08/02/2024 8:04 AM [facility]) BUN 35(H) 7 - 26 mg/dL 08/02/2024 8:41 AM [facility] Creatinine 6.11(H) 0.56 - 0.96 mg/dL 08/02/2024 8:41 AM [facility] Sodium 139 136 - 145 mmol/L 08/02/2024 8:41 AM [facility] Potassium 4.0 3.5 - 4.5 mmol/L 08/02/2024 8:41 AM [facility] Chloride 102 98 - 107 mmol/L 08/02/2024 8:41 AM [facility] CO2 26 22 - 29 mmol/L 08/02/2024 8:41 AM [facility] Glucose 152(H) 70 - 115 mg/dL 08/02/2024 8:41 AM [facility] Albumin 1.7(L) 3.4 - 5.0 g/dL 08/02/2024 8:41 AM [facility] Calcium 8.6 8.4 - 10.2 mg/dL 08/02/2024 8:41 AM [facility] Phosphorus 6.5(H) 2.9 - 5.1 mg/dL 08/02/2024 8:41 AM [facility] Anion Gap 11 6 - 16 08/02/2024 8:41 AM [facility] BUN/Creatinine Ratio 6(L) 7 - 23 08/02/2024 8:41 AM [facility] Osmolality Calculated 299(H) 275 - 295 mOsm/kg 08/02/2024 8:41 AM [facility] eGFR by CKD-EPI 9(L) >=90 mL/min/1.7 3 m2 08/02/2024 8:41 AM [facility] Blood BLOOD SPECIMEN / Unknown Clinic Draw / Unknown 08/02/2024 8:04 AM CDT 08/02/2024 8:10 AM [facility] Ralph Burt MD LAB - CHEMISTRY DIVINA OLVERA [facility] Organization Address City/State/ZIP Co de Phone Number [facility] [address] [place] [address], [facility] [phone] * (ABNORMAL) CBC W AUTO DIFFERENTIAL (08/02/2024 8:04 AM CDT) WBC 14.8(H) 4.0 - 10.7 x10E9/L 08/02/2024 8:24 AM [facility] RBC Count 3.12(L) 3.90 - 5.20 x10E12/L 08/02/2024 8:24 AM [facility] Hemoglobin 9.1(L) 11.9 - 15.8 g/dL 08/02/2024 8:24 AM [facility] Hematocrit 29.7(L) 34.8 - 46.1 % 08/02/2024 8:24 AM [facility] MCV 95.2 80.0 - 98.0 fL 08/02/2024 8:24 AM T [facility] MCH 29.2 26.7 - 33.6 pg 08/02/2024 8:24 AM [facility] MCHC 30.6(L) 31.7 - 36.3 g/dL 08/02/2024 8:24 AM [facility] RDW-CV 13.6 11.3 - 14.8 % 08/02/2024 8:24 AM [facility] Platelet Count 520(H) 150 - 420 x10E9/L 08/02/2024 8:24 AM [facility] MPV 8.8 7.8 - 11.4 fL 08/02/2024 8:24 AM [facility] Neutrophil % 68.2 41.0 - 74.0 % 08/02/2024 8:24 AM [facility] Lymphocyte % 16.6(L) 17.0 - 47.0 % 08/02/2024 8:24 AM [facility] Monocyte % 7.6 3.0 - 11.0 % 08/02/2024 8:24 AM [facility] Eosinophil % 5.8 0.0 - 7.0 % 08/02/2024 8:24 AM [facility] Basophil % 0.3 0.0 - 1.6 % 08/02/2024 8:24 AM [facility] Immature Granulocytes % 1.5(H) 0.0 - 1.0 % 08/02/2024 8:24 AM [facility] Neutrophil Absolute 10.07(H) 1.60 - 7.50 x10E9/L 08/02/2024 8:24 AM [facility] Lymphocyte Absolute 2.45 1.00 - 4.40 x10E9/L 08/02/2024 8:24 AM [facility] Monocyte Absolute 1.12(H) 0.15 - 1.00 x10E9/L 08/02/2024 8:24 AM [facility] Eosinophil Absolute 0.86(H) 0.00 - 0.60 x10E9/L 08/02/2024 8:24 AM [facility] Basophil Absolute 0.05 0.00 - 0.13 x10E9/L 08/02/2024 8:24 AM [facility] Blood BLOOD SPECIMEN / Unknown Clinic Draw / Unknown 08/02/2024 8:04 AM CDT 08/02/2024 8:09 AM CDT Geronimo Burleson MD LAB - HEMATOLO GY ORDERABLES Performing Organization Address City/State/[facility] Co de Phone Number [address] [address], [facility] [phone] * (ABNORMAL) GLUCOSE - POINT OF CARE (08/01/2024 4:42 PM CDT) Glucose WB/POC 146(H) 70 - 115 mg/dL 08/01/2024 4:47 PM CDT [facility] Specimen Type Arterial 08/01/2024 4:47 PM T [facility] Blood BLOOD SPECIMEN / Unknown 08/01/2024 4:42 PM CDT 08/01/2024 4:47 PM CDT Geronimo Burleson MD LAB - POINT OF CARE ORDERABLES [facility] [address] [place] [address], [place] [phone] * (ABNORMAL) GLUCOSE - POINT OF CARE (08/01/2024 11:50 AM CDT) Glucose WB/POC 226(H) 70 - 115 mg/dL 08/01/2024 11:57 AM CDT [facility] Specimen Type Arterial 08/01/2024 11:57 AM CDT [facility] Blood BLOOD SPECIMEN / Unknown 08/01/2024 11:50 AM CDT 08/01/2024 11:57 AM CDT Geronimo Burleson MD LAB - POINT OF CARE ORDERABLES Performing Organization Address City/[facility]/ZIP Co de Phone Number [facility] [address] [place] [phone], [place] [phone] * (ABNORMAL) C-REACTIVE PROTEIN (08/01/2024 11:21 AM CDT) C-Reactive Protein 10.1(H) <=0.5 mg/dL 08/01/2024 12:23 PM CDT [facility] Blood BLOOD SPECIMEN / Unknown Lab Venipuncture / Unknown 08/01/2024 11:21 AM CDT 08/01/2024 11:59 AM CDT Geronimo Burleson MD LAB - CHEMISTR Y ORDERABLES [facility] [address] [place] [address], [place] [phone] * (ABNORMAL) ERYTHROCYTE SEDIMENTATION RATE (08/01/2024 11:21 AM CDT) Erythrocyte Sedimentation Rate Westergren 128(H) 0 - 20 MM/HR 08/01/2024 12:18 PM CDT [facility] Blood BLOOD SPECIMEN / Unknown Lab Venipuncture / Unknown 08/01/2024 11:21 AM CDT 08/01/2024 11:59 AM CDT Geronimo Burleson MD LAB - HEMATOLO GY ORDERABLES Performing Organization Address City/[facility]/ZIP Co de Phone Number [address] [address], [place] [phone] * (ABNORMAL) GLUCOSE - POINT OF CARE (08/01/2024 8:05 AM CDT) [facility] Glucose WB/POC 147(H) 70 - 115 mg/dL 08/01/2024 8:09 AM CDT [facility] Specimen Type Arterial 08/01/2024 8:09 AM CDT [facility] Blood BLOOD SPECIMEN / Unknown 08/01/2024 8:05 AM CDT 08/01/2024 8:09 AM CDT Geronimo Burleson MD LAB - POINT OF CARE ORDERABLES Performing Organization Address [facility]/ZIP Co de Phone Number [address] [address], [place] [phone] * (ABNORMAL) PTT [facility] (08/01/2024 6:48 AM CDT) [facility] APTT 81.7(H) 23.0 - 38.4 Seconds 08/01/2024 7:30 AM CDT [facility] Comment:Suggested therapeuti c range for full dose I.V. unfractionated heparin therapy for venous thromboembolism is 71 to 109 seconds. Blood BLOOD SPECIMEN / Unknown Venipuncture / Unknown 08/01/2024 6:48 AM CDT 08/01/2024 6:53 AM CDT Geronimo Burleson MD LAB - COAGULAT ION ORDERABLES Performing Organization Address City/[facility]/ZIP Co de Phone Number [address] [address], [place] [phone] * CULTURE BLOOD (08/01/2024 1:47 AM CDT) Culture No growth day 5 CHARLES 08/06/2024 5:31 AM CDT [facility] Blood PERIPHERAL BLOOD / Unknown Lab Venipuncture / Unknown 08/01/2024 1:47 AM CDT 08/01/2024 2:30 AM CDT Geronimo Burleson MD LAB - MICROBIO LOGY ORDERABLES Performing Organization Address [facility] Co de Phone Number [facility] [address] [place] [address], [facility] [phone] * CULTURE BLOOD (08/01/2024 1:47 AM CDT) Culture No growth day 5 CHARLES 08/06/2024 5:31 AM CDT [facility] Blood PERIPHERAL BLOOD / Unknown Lab Venipuncture / Unknown 08/01/2024 1:47 AM CDT 08/01/2024 2:30 AM CDT Geronimo Burleson MD LAB - MICROBIO LOGY ORDERABLES Performing Organization Address [facility] de Phone Number [facility] [address] [place] [address], [facility] [phone] * PT-INR [facility] (08/01/2024 12:42 AM CDT) PT 14.0 12.1 - 14.8 Seconds 08/01/2024 1:31 AM CDT [facility] INR 1.1 See Comment 08/01/2024 1:31 AM CDT [facility] Comment:The suggested therap eutic range for standard coumadin (warfarin) therapy is an INR of 2.0-3.0. For high-risk patients (Mechanical Mitral Valve Prosthesis, etc.), the suggested prophylactic therapeutic range is an INR of 2.5-3.5. Blood BLOOD SPECIMEN / Unknown 08/01/2024 12:42 AM CDT 08/01/2024 1:00 AM CDT Geronimo Burleson MD LAB - COAGULAT ION ORDERABLES Performing Organization Address [facility] Co de Phone Number [facility] [address] [place] [address], [facility] [phone] * MAGNESIUM BLOOD (08/01/2024 12:42 AM CDT) Pathologist [facility] Magnesium 2.0 1.6 - 2.6 mg/dL 08/01/2024 1:33 AM [facility] Blood BLOOD SPECIMEN / Unknown Venipuncture / Unknown 08/01/2024 12:42 AM CDT 08/01/2024 1:05 AM CDT Geronimo Burleson MD LAB - CHEMISTR Y ORDERABLES [facility] [address] [place] [address], [facility] [phone] * (ABNORMAL) RENAL FUNCTION PANEL (08/01/2024 12:42 AM CDT) Pathologist [facility] BUN 24 7 - 26 mg/dL 08/01/2024 1:33 AM [facility] Creatinine 5.20(H) 0.56 - 0.96 mg/dL 08/01/2024 1:33 AM [facility] Sodium 135(L) 136 - 145 mmol/L 08/01/2024 1:33 AM [facility] Potassium 4.0 3.5 - 4.5 mmol/L 08/01/2024 1:33 AM [facility] Chloride 100 98 - 107 mmol/L 08/01/2024 1:33 AM [facility] CO2 26 22 - 29 mmol/L 08/01/2024 1:33 AM [facility] Glucose 220(H) 70 - 115 mg/dL 08/01/2024 1:33 AM [facility] Albumin 1.7(L) 3.4 - 5.0 g/dL 08/01/2024 1:33 AM [facility] Calcium 7.7(L) 8.4 - 10.2 mg/dL 08/01/2024 1:33 AM [facility] Phosphorus 4.7 2.9 - 5.1 mg/dL 08/01/2024 1:33 AM T [facility] Anion Gap 9 6 - 16 08/01/2024 1:33 AM [facility] BUN/Creatinine Ratio 5(L) 7 - 23 08/01/2024 1:33 AM [facility] Osmolality Calculated 291 275 - 295 mOsm/kg 08/01/2024 1:33 AM [facility] eGFR by CKD-EPI 11(L) >=90 mL/min/1.7 3 m2 08/01/2024 1:33 AM T [facility] Blood BLOOD SPECIMEN / Unknown Venipuncture / Unknown 08/01/2024 12:42 AM CDT 08/01/2024 1:05 AM CDT Ralph Burt MD LAB - CHEMISTRY ORDE WADE Performing Organization Address City/[facility]/ZIP Co de Phone Number [address] [address], [facility] [phone] * (ABNORMAL) PTT [facility] (08/01/2024 12:42 AM CDT) APTT 73.2(H) 23.0 - 38.4 Seconds 08/01/2024 1:31 AM [facility] Comment:Suggested therapeuti c range for full dose I.V. unfractionated heparin therapy for venous thromboembolism is 71 to 109 seconds. Blood BLOOD SPECIMEN / Unknown 08/01/2024 12:42 AM CDT 08/01/2024 1:00 AM CDT Geronimo Burleson MD LAB - COAGULAT ION ORDERABLES [address] [address], [place] [phone] * (ABNORMAL) CBC W AUTO DIFFERENTIAL (08/01/2024 12:42 AM CDT) WBC 15.0(H) 4.0 - 10.7 x10E9/L 08/01/2024 1:20 AM [facility] RBC Count 3.12(L) 3.90 - 5.20 x10E12/L 08/01/2024 1:20 AM [facility] Hemoglobin 9.0(L) 11.9 - 15.8 g/dL 08/01/2024 1:20 AM [facility] Hematocrit 29.7(L) 34.8 - 46.1 % 08/01/2024 1:20 AM [facility] MCV 95.2 80.0 - 98.0 fL 08/01/2024 1:20 AM [facility] MCH 28.8 26.7 - 33.6 pg 08/01/2024 1:20 AM [facility] MCHC 30.3(L) 31.7 - 36.3 g/dL 08/01/2024 1:20 AM [facility] RDW-CV 13.5 11.3 - 14.8 % 08/01/2024 1:20 AM [facility] Platelet Count 490(H) 150 - 420 x10E9/L 08/01/2024 1:20 AM [facility] MPV 8.9 7.8 - 11.4 fL 08/01/2024 1:20 AM [facility] Neutrophil % 70.3 41.0 - 74.0 % 08/01/2024 1:20 AM [facility] Lymphocyte % 15.0(L) 17.0 - 47.0 % 08/01/2024 1:20 AM [facility] Monocyte % 7.5 3.0 - 11.0 % 08/01/2024 1:20 AM [facility] Eosinophil % 5.4 0.0 - 7.0 % 08/01/2024 1:20 AM [facility] Basophil % 0.3 0.0 - 1.6 % 08/01/2024 1:20 AM [facility] Immature Granulocytes % 1.5(H) 0.0 - 1.0 % 08/01/2024 1:20 AM [facility] Neutrophil Absolute 10.51(H) 1.60 - 7.50 x10E9/L 08/01/2024 1:20 AM CDT [facility] Lymphocyte Absolute 2.24 1.00 - 4.40 x10E9/L 08/01/2024 1:20 AM CDT [facility] Monocyte Absolute 1.13(H) 0.15 - 1.00 x10E9/L 08/01/2024 1:20 AM CDT [facility] Eosinophil Absolute 0.81(H) 0.00 - 0.60 x10E9/L 08/01/2024 1:20 AM CDT [facility] Basophil Absolute 0.05 0.00 - 0.13 x10E9/L 08/01/2024 1:20 AM CDT [facility] Blood BLOOD SPECIMEN / Unknown Venipuncture / Unknown 08/01/2024 12:42 AM CDT 08/01/2024 1:07 AM CDT Geronimo Burleson MD LAB - HEMATOLO GY ORDERABLES Performing Organization Address City/[facility]/ZIP Co de Phone Number [address] [address], [facility] [phone] * (ABNORMAL) PTT [facility] (07/31/2024 5:20 PM CDT) APTT 67.1(H) 23.0 - 38.4 Seconds 07/31/2024 6:01 PM CDT [facility] Comment:Suggested therapeuti c range for full dose I.V. unfractionated heparin therapy for venous thromboembolism is 71 to 109 seconds. Blood BLOOD SPECIMEN / Unknown Venipuncture / Unknown 07/31/2024 5:20 PM CDT 07/31/2024 5:36 PM CDT Geronimo Burleson MD LAB - COAGULAT ION ORDERABLES [address] [address], [place] [phone] * (ABNORMAL) CULTURE BLOOD (07/31/2024 5:20 PM CDT) Culture Growth of Staphylococcus hominis(AA) 08/06/2024 4:30 PM CDT [facility] Comment:Possible contaminant unless multiple cultures are positive for the same isolate. Gram Stain Gram-positive cocci in clusters(AA) 08/06/2024 4:30 PM CDT [facility] Blood PERIPHERAL BLOOD / Unknown Venipuncture / Unknown 07/31/2024 5:20 PM CDT 07/31/2024 5:30 PM CDT Narrative [facility] - 08/06/2024 4:30 PM CDT Positive at 17 Hours 12 Minutes Geronimo Burleson MD LAB - MICROBIO LOGY ORDERABLES [facility] [address] [place], [place] [address], [facility] [phone] * (ABNORMAL) CBC W AUTO DIFFERENTIAL (07/31/2024 5:20 PM CDT) WBC 15.1(H) 4.0 - 10.7 x10E9/L 07/31/2024 5:43 PM [facility] RBC Count 3.29(L) 3.90 - 5.20 x10E12/L 07/31/2024 5:43 PM [facility] Hemoglobin 9.6(L) 11.9 - 15.8 g/dL 07/31/2024 5:43 PM [facility] Hematocrit 31.1(L) 34.8 - 46.1 % 07/31/2024 5:43 PM [facility] MCV 94.5 80.0 - 98.0 fL 07/31/2024 5:43 PM [facility] MCH 29.2 26.7 - 33.6 pg 07/31/2024 5:43 PM [facility] MCHC 30.9(L) 31.7 - 36.3 g/dL 07/31/2024 5:43 PM [facility] RDW-CV 13.4 11.3 - 14.8 % 07/31/2024 5:43 PM [facility] Platelet Count 539(H) 150 - 420 x10E9/L 07/31/2024 5:43 PM [facility] MPV 8.9 7.8 - 11.4 fL 07/31/2024 5:43 PM [facility] Neutrophil % 76.1(H) 41.0 - 74.0 % 07/31/2024 5:43 PM [facility] Lymphocyte % 10.6(L) 17.0 - 47.0 % 07/31/2024 5:43 PM [facility] Monocyte % 6.8 3.0 - 11.0 % 07/31/2024 5:43 PM [facility] Eosinophil % 4.0 0.0 - 7.0 % 07/31/2024 5:43 PM [facility] Basophil % 0.4 0.0 - 1.6 % 07/31/2024 5:43 PM [facility] Immature Granulocytes % 2.1(H) 0.0 - 1.0 % 07/31/2024 5:43 PM [facility] Neutrophil Absolute 11.50(H) 1.60 - 7.50 x10E9/L 07/31/2024 5:43 PM [facility] Lymphocyte Absolute 1.60 1.00 - 4.40 x10E9/L 07/31/2024 5:43 PM [facility] Monocyte Absolute 1.03(H) 0.15 - 1.00 x10E9/L 07/31/2024 5:43 PM [facility] Eosinophil Absolute 0.61(H) 0.00 - 0.60 x10E9/L 07/31/2024 5:43 PM [facility] Basophil Absolute 0.06 0.00 - 0.13 x10E9/L 07/31/2024 5:43 PM [facility] Blood BLOOD SPECIMEN / Unknown Venipuncture / Unknown 07/31/2024 5:20 PM CDT 07/31/2024 5:36 PM CDT Geronimo Burleson MD LAB - HEMATOLO GY ORDERABLES [facility] [address] [place] [address], [facility] [phone] * (ABNORMAL) GLUCOSE - POINT OF CARE (07/31/2024 4:53 PM CDT) Glucose WB/POC 223(H) 70 - 115 mg/dL 07/31/2024 6:12 PM CDT [facility] Specimen Type Cap Fingerstick 2023 6:12 PM CDT [facility] Blood BLOOD SPECIMEN / Unknown 07/31/2024 4:53 PM CDT 07/31/2024 6:12 PM CDT Geronimo Burleson MD LAB - POINT OF CARE ORDERABLES [address] [address], [place] [phone] * (ABNORMAL) GLUCOSE - POINT OF CARE (07/31/2024 11:05 AM CDT) Glucose WB/POC 149(H) 70 - 115 mg/dL 07/31/2024 11:27 AM CDT [facility] Specimen Type Cap Fingerstick 2023 11:27 AM CDT [facility] Blood BLOOD SPECIMEN / Unknown 07/31/2024 11:05 AM CDT 07/31/2024 11:27 AM CDT Geronimo Burleson MD LAB - POINT OF CARE ORDERABLES [address] [address], [place] [phone] * (ABNORMAL) GLUCOSE - POINT OF CARE (07/31/2024 8:35 AM CDT) Glucose WB/POC 168(H) 70 - 115 mg/dL 07/31/2024 11:03 AM CDT [facility] Specimen Type Cap Fingerstick 2023 11:03 AM CDT [facility] Blood BLOOD SPECIMEN / Unknown 07/31/2024 8:35 AM CDT 07/31/2024 11:03 AM CDT Geronimo Burleson MD LAB - POINT OF CARE ORDERABLES Performing Organization Address City/[facility]/ZIP Co de Phone Number [facility] [address] [place] [address], [facility] [phone] * PT-INR [facility] (07/31/2024 7:37 AM CDT) PT 14.6 12.1 - 14.8 Seconds 07/31/2024 8:13 AM CDT [facility] INR 1.2 See Comment 07/31/2024 8:13 AM CDT [facility] Comment:The suggested therap eutic range for standard coumadin (warfarin) therapy is an INR of 2.0-3.0. For high-risk patients (Mechanical Mitral Valve Prosthesis, etc.), the suggested prophylactic therapeutic range is an INR of 2.5-3.5. Blood BLOOD SPECIMEN / Unknown Venipuncture / Unknown 07/31/2024 7:37 AM CDT 07/31/2024 7:44 AM CDT Geronimo Burleson MD LAB - COAGULAT ION ORDERABLES Performing Organization Address City/[facility]/ZIP Co de Phone Number [address] [address], [facility] [phone] * PTT [facility] (07/31/2024 7:37 AM CDT) APTT 30.5 23.0 - 38.4 Seconds 07/31/2024 8:13 AM CDT [facility] Comment:Suggested therapeuti c range for full dose I.V. unfractionated heparin therapy for venous thromboembolism is 71 to 109 seconds. Blood BLOOD SPECIMEN / Unknown Venipuncture / Unknown 07/31/2024 7:37 AM CDT 07/31/2024 7:44 AM CDT Geronimo Burleson MD LAB - COAGULAT ION ORDERABLES Performing Organization Address City/[facility]/ZIP Co de Phone Number [facility] [address] [place] [address], [place] [phone] * MAGNESIUM BLOOD (07/31/2024 5:53 AM CDT) Magnesium 2.2 1.6 - 2.6 mg/dL 07/31/2024 6:37 AM [facility] Blood BLOOD SPECIMEN / Unknown Venipuncture / Unknown 07/31/2024 5:53 AM CDT 07/31/2024 6:08 AM CDT Geronimo Burleson MD LAB - CHEMISTR Y ORDERABLES [facility] [address] [place] [address], [facility] [phone] * (ABNORMAL) RENAL FUNCTION PANEL (07/31/2024 5:53 AM CDT) BUN 50(H) 7 - 26 mg/dL 07/31/2024 6:37 AM [facility] Creatinine 9.33(H) 0.56 - 0.96 mg/dL 07/31/2024 6:37 AM [facility] Sodium 137 136 - 145 mmol/L 07/31/2024 6:37 AM [facility] Potassium 4.7(H) 3.5 - 4.5 mmol/L 07/31/2024 6:37 AM [facility] Chloride 102 98 - 107 mmol/L 07/31/2024 6:37 AM [facility] CO2 22 22 - 29 mmol/L 07/31/2024 6:37 AM [facility] Glucose 133(H) 70 - 115 mg/dL 07/31/2024 6:37 AM [facility] Albumin 1.6(L) 3.4 - 5.0 g/dL 07/31/2024 6:37 AM [facility] Calcium 7.5(L) 8.4 - 10.2 mg/dL 07/31/2024 6:37 AM [facility] Phosphorus 8.9(H) 2.9 - 5.1 mg/dL 07/31/2024 6:37 AM [facility] Anion Gap 13 6 - 16 07/31/2024 6:37 AM [facility] BUN/Creatinine Ratio 5(L) 7 - 23 07/31/2024 6:37 AM [facility] Osmolality Calculated 299(H) 275 - 295 mOsm/kg 07/31/2024 6:37 AM [facility] eGFR by CKD-EPI 5(L) >=90 mL/min/1.7 3 m2 07/31/2024 6:37 AM [facility] Blood BLOOD SPECIMEN / Unknown Venipuncture / Unknown 07/31/2024 5:53 AM CDT 07/31/2024 6:08 AM T Ralph Burt MD LAB - CHEMISTRY ORDE WADE [facility] Organization Address City/State/ZIP Co de Phone Number [facility] [address] [place] [address], [facility] [phone] * (ABNORMAL) CBC W/O DIFFERENTIAL (07/31/2024 5:53 AM CDT) WBC 13.2(H) 4.0 - 10.7 x10E9/L 07/31/2024 6:26 AM [facility] RBC Count 2.98(L) 3.90 - 5.20 x10E12/L 07/31/2024 6:26 AM [facility] Hemoglobin 8.6(L) 11.9 - 15.8 g/dL 07/31/2024 6:26 AM [facility] Hematocrit 28.5(L) 34.8 - 46.1 % 07/31/2024 6:26 AM [facility] MCV 95.6 80.0 - 98.0 fL 07/31/2024 6:26 AM [facility] MCH 28.9 26.7 - 33.6 pg 07/31/2024 6:26 AM [facility] MCHC 30.2(L) 31.7 - 36.3 g/dL 07/31/2024 6:26 AM [facility] RDW-CV 13.8 11.3 - 14.8 % 07/31/2024 6:26 AM CDT [facility] Platelet Count 575(H) 150 - 420 x10E9/L 07/31/2024 6:26 AM CDT [facility] MPV 8.9 7.8 - 11.4 fL 07/31/2024 6:26 AM CDT [facility] Blood BLOOD SPECIMEN / Unknown Venipuncture / Unknown 07/31/2024 5:53 AM CDT 07/31/2024 6:08 AM CDT Ralph Burt MD LAB - HEMATOLOGY ORD ERABLES [address] [address], [facility] [phone] * VANCOMYCIN LEVEL RANDOM (07/31/2024 5:53 AM CDT) Vancomycin Random 17.1 Therapeutic Ranges not established for random specimens ug/mL 07/31/2024 6:51 AM CDT [facility] Blood BLOOD SPECIMEN / Unknown Venipuncture / Unknown 07/31/2024 5:53 AM CDT 07/31/2024 6:00 AM CDT Narrative [facility] - 07/31/2024 6:51 AM CDT See institution protocol. Geronimo Burleson MD LAB - CHEMISTR Y ORDERABLES Performing Organization Address City/[facility]/ZIP Co de Phone Number [address] [address], [place] [phone] * (ABNORMAL) GLUCOSE - POINT OF CARE (07/30/2024 7:52 PM CDT) Glucose WB/POC 205(H) 70 - 115 mg/dL 07/30/2024 8:00 PM CDT [facility] Specimen Type Cap Fingerstick 2023 8:00 PM CDT [facility] Blood BLOOD SPECIMEN / Unknown 07/30/2024 7:52 PM CDT 07/30/2024 8:00 PM CDT Geronimo Burleson MD LAB - POINT OF CARE ORDERABLES [facility] [address] [place] [id number], [facility] [phone] * XR Chest 1Vw Portable (07/30/2024 4:42 PM CDT) Anatomical Region Laterality Modality Chest Digital Radiogra phy 07/31/2024 7:07 AM CDT Narrative 07/31/2024 12:11 PM CDT PROCEDURE: ??XR CHEST 1VW PORTABLE, DATE/TIME OF EXAM: ??07/30/2024 4:42 PM, LOCATION ??[facility] INDICATION: N18.6: ESRD (end stage renal disease) (HCC) ADDITIONAL CLINICAL INFORMATION: Ordering Provider Reason For Exam: ??Left IJ juan catheter placement COMPARISON: Chest x-ray dated 07/25/2024 TECHNIQUE: Frontal radiograph of the chest. FINDINGS/IMPRESSION: Devices/lines: *Left internal jugular approach catheter projects into the right atrium Redemonstration of stable bilateral interstitial and patchy airspace opacities. No pleural effusion or pneumothorax. The cardiomediastinal silhouette is stable. Report dictated by Dony Maciel MD, MD (residential tech). I, Golden Rubin DO have personally reviewed and interpreted this examination/study. > Interpreting Provider: Golden Rubin DO on 07/31/2024 12:11 PM Procedure Note Golden Rubin DO - 07/31/2024 PROCEDURE: XR CHEST 1VW PORTABLE, DATE/TIME OF EXAM: 07/30/2024 4:42PM, LOCATION [facility] INDICATION: N18.6: ESRD (end stage renal disease) (HCC) ADDITIONAL CLINICAL INFORMATION: Ordering Provider Reason For Exam: Left IJ juan catheter placement COMPARISON: Chest x-ray dated 07/25/2024 TECHNIQUE: Frontal radiograph of the chest. FINDINGS/IMPRESSION: Devices/lines: *Left internal jugular approach catheter projects into the right atrium Redemonstration of stable bilateral interstitial and patchy airspace opacities. No pleural effusion or pneumothorax. The cardiomediastinal silhouette is stable. Report dictated by Dony Maciel MD, MD (residential tech). I, Golden Rubin DO have personally reviewed [...] bacteremia N18.6: ESRD (end stage renal disease) ([facility]) Additional History: A non tunneled dialysis catheter was placed due to patient being bacteremic. COMPARISON: None. FLUOROSCOPY DOSE: mGy Reference air kerma (ka,r). [employer] Operator: Husam Palacios MD MEDICATIONS: None. ?? Contrast: [...] bacteremia N18.6: ESRD (end stage renal disease) (HCC) Additional History: A non tunneled dialysis catheter was placed due to patient being bacteremic. COMPARISON: None. FLUOROSCOPY DOSE: mGy Reference air kerma (ka,r). [employer] Operator: Husam Palacios MD MEDICATIONS: None. Contrast: None [...] 1990 Gender: ? Female Accession #: ? [id number] Ht: ? 67 in Wt: ? 250 lb BSA: ? 2.37 m2 HR: ? 88 bpm BP: ? 130 / ? 77 mmHg Exam Date: ? 07/30/2024 3:43 PM Patient Status: ? I/P Study Site: ? [facility] Primary Location: ? [facility] EStudy Info Technical Quality: ? Good Exam Type: ? ECHO MATT COMPLETE Indications ?A41.02 - Sepsis due to methicillin resistant Staphylococcus aureus (MRSA), unspecified whether acute organ dysfunction present (HCC) * A complete transesophageal echo was performed using 2D, color Doppler, and spectral Doppler. Marketing Executive: ? Levi Marlow Complications ??* There were [...] in satisfactory condition. Probe passed by the student support services director without difficulty. Left Ventricle ??Left ventricular systolic [...] 3:43 PM Patient Status: I/P Study Site: [facility] Primary Location: [facility] EStudy Info Technical Quality: Good Exam Type: ECHO MATT COMPLETE Indications A41.02 - Sepsis due to methicillin resistant Staphylococcus aureus(MRSA), unspecified whether acute organ dysfunction present (HCC) * A complete transesophageal echo was performed using 2D, color Doppler,and spectral Doppler. Marketing Executive: Levi Marlow Complications * There were no [...] POINT OF CARE (07/30/2024 12:38 PM CDT) Pathologist [facility] Glucose WB/POC 173(H) 70 - 115 mg/dL 07/31/2024 7:51 AM CDT [facility] Specimen Type Cap Fingerstick 2023 7:51 AM CDT [facility] Blood BLOOD SPECIMEN / Unknown 07/30/2024 12:38 PM CDT 07/31/2024 7:51 AM CDT Geronimo Burleson MD LAB - POINT OF CARE ORDERABLES Performing Organization Address [facility]/State/ZIP Co de Phone Number [facility] [address] [place] [address], [facility] [phone] * CULTURE BLOOD (07/30/2024 12:13 PM CDT) Pathologist [facility] Culture No growth day 5 CHARLES 08/04/2024 4:31 PM CDT [facility] Blood PERIPHERAL BLOOD / Unknown Lab Venipuncture / Unknown 07/30/2024 12:13 PM CDT 07/30/2024 12:35 PM CDT Geronimo Burleson MD LAB - MICROBIO LOGY ORDERABLES [facility] [address] [place] [address], [facility] [phone] * CULTURE BLOOD (07/30/2024 12:03 PM CDT) Culture No growth day 5 CHARLSE 08/04/2024 4:31 PM CDT [facility] Blood PERIPHERAL BLOOD / Unknown Lab Venipuncture / Unknown 07/30/2024 12:03 PM CDT 07/30/2024 12:35 PM CDT Geronimo Burleson MD LAB - MICROBIO LOGY ORDERABLES Performing Organization Address City/[facility]/ZIP Co de Phone Number [facility] [address] [place] [address], [facility] [phone] * MRI Cervical Spine Wwo Cont (07/30/2024 [...] DATE/TIME OF EXAM: ??07/30/2024 9:22 AM, LOCATION ??[facility] INDICATION: R78.81: MRSA bacteremia B95.62: MRSA bacteremia [...] CERVICAL SPINE WWO CONT, DATE/TIME OF EXAM: :22 AM, LOCATION [facility] INDICATION: R78.81: MRSA bacteremia B95.62: MRSA bacteremia [...] - 2.6 mg/dL 07/30/2024 7:40 AM CDT [facility] Blood BLOOD SPECIMEN / Unknown Lab Venipuncture / Unknown 07/30/2024 6:44 AM CDT 07/30/2024 7:10 AM CDT Geronimo Burleson MD LAB - CHEMISTR Y ORDERABLES Performing Organization Address City/State/[facility] Co de Phone Number [facility] [address] [place] [address], [facility] [phone] * (ABNORMAL) RENAL FUNCTION PANEL (07/30/2024 6:44 AM CDT) BUN 44(H) 7 - 26 mg/dL 07/30/2024 7:40 AM CDT [facility] Creatinine 9.32(H) 0.56 - 0.96 mg/dL 07/30/2024 7:40 AM CDT [facility] Sodium 135(L) 136 - 145 mmol/L 07/30/2024 7:40 AM [facility] Potassium 4.7(H) 3.5 - 4.5 mmol/L 07/30/2024 7:40 AM [facility] Chloride 104 98 - 107 mmol/L 07/30/2024 7:40 AM [facility] CO2 21(L) 22 - 29 mmol/L 07/30/2024 7:40 AM [facility] Glucose 167(H) 70 - 115 mg/dL 07/30/2024 7:40 AM [facility] Albumin 1.6(L) 3.4 - 5.0 g/dL 07/30/2024 7:40 AM [facility] Calcium 7.7(L) 8.4 - 10.2 mg/dL 07/30/2024 7:40 AM [facility] Phosphorus 9.0(H) 2.9 - 5.1 mg/dL 07/30/2024 7:40 AM [facility] Anion Gap 10 6 - 16 07/30/2024 7:40 AM [facility] BUN/Creatinine Ratio 5(L) 7 - 23 07/30/2024 7:40 AM [facility] Osmolality Calculated 295 275 - 295 mOsm/kg 07/30/2024 7:40 AM [facility] eGFR by CKD-EPI 5(L) >=90 mL/min/1.7 3 m2 07/30/2024 7:40 AM [facility] Blood BLOOD SPECIMEN / Unknown Lab Venipuncture / Unknown 07/30/2024 6:44 AM CDT 07/30/2024 7:10 AM T Ralph Burt MD LAB - CHEMISTRY DIVINA OLVERA [facility] Organization Address City/State/ZIP Co de Phone Number [facility] [address] [place] [address], [facility] [phone] * (ABNORMAL) CBC W/O DIFFERENTIAL (07/30/2024 6:44 AM CDT) WBC 9.6 4.0 - 10.7 x10E9/L 07/30/2024 7:27 AM [facility] RBC Count 3.13(L) 3.90 - 5.20 x10E12/L 07/30/2024 7:27 AM [facility] Hemoglobin 9.0(L) 11.9 - 15.8 g/dL 07/30/2024 7:27 AM [facility] Hematocrit 29.5(L) 34.8 - 46.1 % 07/30/2024 7:27 AM [facility] MCV 94.2 80.0 - 98.0 fL 07/30/2024 7:27 AM [facility] MCH 28.8 26.7 - 33.6 pg 07/30/2024 7:27 AM [facility] MCHC 30.5(L) 31.7 - 36.3 g/dL 07/30/2024 7:27 AM [facility] RDW-CV 13.7 11.3 - 14.8 % 07/30/2024 7:27 AM [facility] Platelet Count 471(H) 150 - 420 x10E9/L 07/30/2024 7:27 AM [facility] MPV 9.1 7.8 - 11.4 fL 07/30/2024 7:27 AM [facility] Blood BLOOD SPECIMEN / Unknown Lab Venipuncture / Unknown 07/30/2024 6:44 AM CDT 07/30/2024 7:10 AM T Ralph Burt MD LAB - HEMATOLOGY ORD ERABLES [facility] [address] [place] [address], [facility] [phone] * (ABNORMAL) GLUCOSE - POINT OF CARE (07/29/2024 5:01 PM CDT) Pathologist [facility] Glucose WB/POC 137(H) 70 - 115 mg/dL 07/30/2024 8:37 AM [facility] Specimen Type Cap Fingerstick 2023 8:37 AM [facility] Blood BLOOD SPECIMEN / Unknown 07/29/2024 5:01 PM CDT 07/30/2024 8:37 AM CDT Geronimo Burleson MD LAB - POINT OF CARE ORDERABLES [facility] [address] [place] [address], [place] [phone] * CULTURE BLOOD (07/29/2024 4:36 PM CDT) Culture No growth day 5 CHARLES 08/03/2024 8:30 PM CDT [facility] Blood PERIPHERAL BLOOD / Unknown Lab Venipuncture / Unknown 07/29/2024 4:36 PM CDT 07/29/2024 4:39 PM CDT Geronimo Burleson MD LAB - MICROBIO LOGY ORDERABLES Performing Organization Address City/[facility]/ZIP Co de Phone Number [facility] [address] [place] [address], [facility] [phone] * (ABNORMAL) CULTURE BLOOD (07/29/2024 11:17 AM CDT) Culture Growth of Staphylococcus aureus methicillin-resi stant (MRSA)(AA) 08/03/2024 4:01 PM CDT [facility] Comment:Staphylococcus aureu s methicillin-resistant (MRSA) detected by penicillin binding protein immunoassay. Contact precautions required. Conventional antibiotic susceptibility testing to follow. Gram Stain Gram-positive cocci in clusters(AA) 08/03/2024 4:01 PM CDT [facility] Blood PERIPHERAL BLOOD / Unknown Lab Venipuncture / Unknown 07/29/2024 11:17 AM CDT 07/29/2024 11:52 AM CDT Narrative [facility] - 08/03/2024 4:01 PM CDT Methicillin-resistant Staphylococci (MRSA) are resistant to all currently available beta-lactam antibiotics with the exception of the newer cephalosporins with anti-MRSA activity. Contact precautions required. Positive at 19 hours and 18 minutes Infectious disease consultation strongly recommended, where available. Refer to previously reported susceptibility testing, specimen number:[id number] Geronimo Burleson MD LAB - MICROBIO LOGY ORDERABLES [facility] [address] [place] [address], [facility] [phone] * (ABNORMAL) GLUCOSE - POINT OF CARE (07/29/2024 11:13 AM CDT) Glucose WB/POC 239(H) 70 - 115 mg/dL 07/30/2024 8:37 AM CDT [facility] Specimen Type Cap Fingerstick 2023 8:37 AM CDT [facility] Blood BLOOD SPECIMEN / Unknown 07/29/2024 11:13 AM CDT 07/30/2024 8:36 AM CDT Geronimo Burleson MD LAB - POINT OF CARE ORDERABLES Performing Organization Address City/[facility]/ZIP Co de Phone Number [address] [address], [facility] [phone] * (ABNORMAL) GLUCOSE - POINT OF CARE (07/29/2024 8:21 AM CDT) Glucose WB/POC 139(H) 70 - 115 mg/dL 07/30/2024 8:37 AM CDT [facility] Specimen Type Cap Fingerstick 2023 8:37 AM CDT [facility] Blood BLOOD SPECIMEN / Unknown 07/29/2024 8:21 AM CDT 07/30/2024 8:36 AM CDT Geronimo Burleson MD LAB - POINT OF CARE ORDERABLES [address] [address], [place] [phone] * (ABNORMAL) RENAL FUNCTION PANEL (07/29/2024 6:24 AM CDT) BUN 35(H) 7 - 26 mg/dL 07/29/2024 7:39 AM [facility] Creatinine 8.24(H) 0.56 - 0.96 mg/dL 07/29/2024 7:39 AM [facility] Sodium 137 136 - 145 mmol/L 07/29/2024 7:39 AM [facility] Potassium 4.5 3.5 - 4.5 mmol/L 07/29/2024 7:39 AM [facility] Chloride 100 98 - 107 mmol/L 07/29/2024 7:39 AM [facility] CO2 23 22 - 29 mmol/L 07/29/2024 7:39 AM [facility] Glucose 127(H) 70 - 115 mg/dL 07/29/2024 7:39 AM [facility] Albumin 1.7(L) 3.4 - 5.0 g/dL 07/29/2024 7:39 AM [facility] Calcium 8.2(L) 8.4 - 10.2 mg/dL 07/29/2024 7:39 AM [facility] Phosphorus 8.0(H) 2.9 - 5.1 mg/dL 07/29/2024 7:39 AM [facility] Anion Gap 14 6 - 16 07/29/2024 7:39 AM [facility] BUN/Creatinine Ratio 4(L) 7 - 23 07/29/2024 7:39 AM [facility] Osmolality Calculated 294 275 - 295 mOsm/kg 07/29/2024 7:39 AM [facility] eGFR by CKD-EPI 6(L) >=90 mL/min/1.7 3 m2 07/29/2024 7:39 AM [facility] Blood BLOOD SPECIMEN / Unknown Venipuncture / Unknown 07/29/2024 6:24 AM CDT 07/29/2024 6:34 AM CDT Ralph Burt MD LAB - CHEMISTRY DIVINA OLVERA [facility] Organization Address City/State/ZIP Co de Phone Number [facility] [address] [place] [address], [facility] [phone] * (ABNORMAL) CBC W/O DIFFERENTIAL (07/29/2024 6:24 AM CDT) WBC 10.4 4.0 - 10.7 x10E9/L 07/29/2024 6:41 AM [facility] RBC Count 3.22(L) 3.90 - 5.20 x10E12/L 07/29/2024 6:41 AM [facility] Hemoglobin 9.4(L) 11.9 - 15.8 g/dL 07/29/2024 6:41 AM [facility] Hematocrit 30.1(L) 34.8 - 46.1 % 07/29/2024 6:41 AM [facility] MCV 93.5 80.0 - 98.0 fL 07/29/2024 6:41 AM [facility] MCH 29.2 26.7 - 33.6 pg 07/29/2024 6:41 AM [facility] MCHC 31.2(L) 31.7 - 36.3 g/dL 07/29/2024 6:41 AM [facility] RDW-CV 13.7 11.3 - 14.8 % 07/29/2024 6:41 AM [facility] Platelet Count 467(H) 150 - 420 x10E9/L 07/29/2024 6:41 AM [facility] MPV 9.1 7.8 - 11.4 fL 07/29/2024 6:41 AM [facility] Blood BLOOD SPECIMEN / Unknown Venipuncture / Unknown 07/29/2024 6:24 AM CDT 07/29/2024 6:34 AM CDT Ralph Burt MD LAB - HEMATOLOGY ORD ERABLES [address] [address], [facility] [phone] * VANCOMYCIN LEVEL RANDOM (07/29/2024 6:24 AM CDT) Pathologist [facility] Vancomycin Random 17.0 Therapeutic Ranges not established for random specimens ug/mL 07/29/2024 7:42 AM [facility] Blood BLOOD SPECIMEN / Unknown Venipuncture / Unknown 07/29/2024 6:24 AM CDT 07/29/2024 6:32 AM CDT Narrative [facility] - 07/29/2024 7:42 AM CDT See institution protocol. Ralph Burt MD LAB - CHEMISTRY DIVINA OLVERA [address] [address], [place] [phone] * GLUCOSE - POINT OF CARE (07/29/2024 4:39 AM CDT) Glucose WB/POC 103 70 - 115 mg/dL 07/29/2024 4:44 AM CDT [facility] Specimen Type Cap Fingerstick 2023 4:44 AM CDT [facility] Blood BLOOD SPECIMEN / Unknown 07/29/2024 4:39 AM CDT 07/29/2024 4:44 AM CDT Geronimo Burleson MD LAB - POINT OF CARE ORDERABLES [address] [address], [place] [phone] * (ABNORMAL) GLUCOSE - POINT OF CARE (07/28/2024 8:58 PM CDT) Glucose WB/POC 189(H) 70 - 115 mg/dL 07/29/2024 8:17 AM CDT [facility] Specimen Type Cap Fingerstick 2023 8:17 AM CDT [facility] Blood BLOOD SPECIMEN / Unknown 07/28/2024 8:58 PM CDT 07/29/2024 8:17 AM CDT Geronimo Burleson MD LAB - POINT OF CARE ORDERABLES [address] [address], [place] [phone] * (ABNORMAL) CULTURE BLOOD (07/28/2024 8:48 PM CDT) Culture Growth of Staphylococcus aureus methicillin-resi stant (MRSA)(AA) CHARLES 08/04/2024 3:38 PM CDT [facility] Comment:Staphylococcus aureu s methicillin-resistant (MRSA) detected by penicillin binding protein immunoassay. Contact precautions required. Conventional antibiotic susceptibility testing to follow. Gram Stain Gram-positive cocci in clusters(AA) 08/04/2024 3:38 PM CDT [facility] Blood PERIPHERAL BLOOD / Unknown Lab Venipuncture / Unknown 07/28/2024 8:48 PM CDT 07/28/2024 8:54 PM CDT Narrative [facility] - 08/04/2024 3:38 PM CDT Methicillin-resistant [...] Burleson MD LAB - MICROBIO LOGY ORDERABLES [facility] [address] [place] [address], [facility] [phone] * (ABNORMAL) CULTURE BLOOD (07/28/2024 5:53 PM CDT) Culture Growth of Staphylococcus aureus methicillin-resi stant (MRSA)(AA) CHARLES 08/03/2024 4:07 PM CDT [facility] Comment:Staphylococcus aureu s methicillin-resistant (MRSA) detected by penicillin binding protein immunoassay. Contact precautions required. Conventional antibiotic susceptibility testing to follow. Gram Stain Gram-positive cocci in clusters(AA) 08/03/2024 4:07 PM CDT [facility] Blood PERIPHERAL BLOOD / Unknown Lab Venipuncture / Unknown 07/28/2024 5:53 PM CDT 07/28/2024 5:59 PM CDT Narrative [facility] - 08/03/2024 4:07 PM CDT Methicillin-resistant Staphylococci (MRSA) are resistant to all currently available beta-lactam antibiotics with the exception of the newer cephalosporins with anti-MRSA activity. Contact precautions required. Refer to previously reported susceptibility testing, specimen number: [id number] Positive at 41 Hours 58 Minutes Infectious disease consultation strongly recommended, where available. Geronimo Burleson MD LAB - MICROBIO LOGY ORDERABLES Performing Organization Address City/[facility]/ZIP Co de Phone Number [facility] [address] [place] [address], [facility] [phone] * (ABNORMAL) GLUCOSE - POINT OF CARE (07/28/2024 5:25 PM CDT) [facility] Glucose WB/POC 212(H) 70 - 115 mg/dL 07/29/2024 1:40 AM CDT [facility] Specimen Type Cap Fingerstick 2023 1:40 AM CDT [facility] Blood BLOOD SPECIMEN / Unknown 07/28/2024 5:25 PM CDT 07/29/2024 1:40 AM CDT Geronimo Burleson MD LAB - POINT OF CARE ORDERABLES Performing Organization Address City/[facility]/ZIP Co de Phone Number [facility] [address] [place] [address], [place] [phone] * IR Central Line Removal (07/28/2024 5:07 PM CDT) Anatomical Region Laterality Modality Other Narrative 07/28/2024 7:17 PM CDT Nicolás Truong DO ? 07/28/2024 ??7:18 PM [facility] Department of Nephrology Procedure Note [...] procedure well. Nicolás Truong DO Nephrology Fellow [facility] Geronimo Burleson MD IR ORDERABLES * CT [...] - 115 mg/dL 07/28/2024 12:07 PM CDT [facility] Specimen Type Cap Fingerstick 2023 12:07 PM CDT [facility] Blood BLOOD SPECIMEN / Unknown 07/28/2024 12:02 PM CDT 07/28/2024 12:07 PM CDT Geronimo Burleson MD LAB - POINT OF CARE ORDERABLES [facility] [address] [place] [address], [place] [phone] * ECHO COMPLETE W CONTRAST (07/28/2024 8:44 [...] 1990 Gender: ? Female Accession #: ? [id number] Ht: ? 67 in Wt: ? 250 lb BSA: ? 2.37 m2 HR: ? 81 bpm BP: ? 144 / ? 77 mmHg Heart Rhythm: ? Sinus Rhythm Exam Date: ? 07/28/2024 7:15 AM Patient Status: ? I/P Study Site: ? [facility] Primary Location: ? [facility] EStudy Info Technical Quality: ? Fair [...] Geronimo Burleson Attending Physician: ? Geronimo Burleson [facility] Aide: ? Nitesh Donis Left Ventricle ??The left [...] Volume Index (BP MOD) ?36 ml/m2 ? 16-34 Report Signatures Finalized by Ruth Wilcox ?? [...] would suggest transesophageal echocardiogram. Patient Info Name: Lereoy Canales Age: 33 years : 1990 Gender: Female Ht: 67 in Wt: 250 lb BSA: 2.37 m2 HR: 81 bpm BP: 144 / 77 mmHg Heart Rhythm: Sinus Rhythm Exam Date: 07/28/2024 7:15 AM Patient Status: I/P Study Site: [facility] Primary Location: [facility] EStudy Info Technical Quality: Fair Exam [...] Provider: Geronimo Burleson Attending Physician: [facility]eronimo Burleson [facility] Aide: Nitesh Donis Left Ventricle The left ventricle [...] 70 - 115 mg/dL 07/28/2024 8:22 AM CDT [facility] Specimen Type Cap Fingerstick 2023 8:22 AM CDT [facility] Blood BLOOD SPECIMEN / Unknown 07/28/2024 8:13 AM CDT 07/28/2024 8:22 AM CDT Geronimo Burleson MD LAB - POINT OF CARE ORDERABLES [facility] [address] [place] [address], [place] [phone] * (ABNORMAL) RENAL FUNCTION PANEL (07/28/2024 7:02 AM CDT) BUN 29(H) 7 - 26 mg/dL 07/28/2024 7:56 AM [facility] Creatinine 6.64(H) 0.56 - 0.96 mg/dL 07/28/2024 7:56 AM [facility] Sodium 136 136 - 145 mmol/L 07/28/2024 7:56 AM [facility] Potassium 4.2 3.5 - 4.5 mmol/L 07/28/2024 7:56 AM [facility] Chloride 102 98 - 107 mmol/L 07/28/2024 7:56 AM [facility] CO2 24 22 - 29 mmol/L 07/28/2024 7:56 AM [facility] Glucose 190(H) 70 - 115 mg/dL 07/28/2024 7:56 AM [facility] Albumin 1.7(L) 3.4 - 5.0 g/dL 07/28/2024 7:56 AM [facility] Calcium 7.6(L) 8.4 - 10.2 mg/dL 07/28/2024 7:56 AM [facility] Phosphorus 6.7(H) 2.9 - 5.1 mg/dL 07/28/2024 7:56 AM [facility] Anion Gap 10 6 - 16 07/28/2024 7:56 AM [facility] BUN/Creatinine Ratio 4(L) 7 - 23 07/28/2024 7:56 AM [facility] Osmolality Calculated 293 275 - 295 mOsm/kg 07/28/2024 7:56 AM [facility] eGFR by CKD-EPI 8(L) >=90 mL/min/1.7 3 m2 07/28/2024 7:56 AM [facility] Blood BLOOD SPECIMEN / Unknown Venipuncture / Unknown 07/28/2024 7:02 AM T 07/28/2024 7:08 AM [facility] Ralph Burt MD LAB - CHEMISTRY DIVINA OLVERA [facility] Organization Address City/State/ZIP Co de Phone Number [facility] [address] [place] [address], [facility] [phone] * (ABNORMAL) CBC W/O DIFFERENTIAL (07/28/2024 7:02 AM CDT) [facility] WBC 11.0(H) 4.0 - 10.7 x10E9/L 07/28/2024 7:15 AM [facility] RBC Count 3.24(L) 3.90 - 5.20 x10E12/L 07/28/2024 7:15 AM [facility] Hemoglobin 9.4(L) 11.9 - 15.8 g/dL 07/28/2024 7:15 AM [facility] Hematocrit 29.5(L) 34.8 - 46.1 % 07/28/2024 7:15 AM [facility] MCV 91.0 80.0 - 98.0 fL 07/28/2024 7:15 AM [facility] MCH 29.0 26.7 - 33.6 pg 07/28/2024 7:15 AM [facility] MCHC 31.9 31.7 - 36.3 g/dL 07/28/2024 7:15 AM [facility] RDW-CV 13.5 11.3 - 14.8 % 07/28/2024 7:15 AM [facility] Platelet Count 388 150 - 420 x10E9/L 07/28/2024 7:15 AM [facility] MPV 9.4 7.8 - 11.4 fL 07/28/2024 7:15 AM [facility] Blood BLOOD SPECIMEN / Unknown Venipuncture / Unknown 07/28/2024 7:02 AM CDT 07/28/2024 7:08 AM CDT Ralph Burt MD LAB - HEMATOLOGY ORD ERABLES [facility] [address] [place] [address], [facility] [phone] * (ABNORMAL) GLUCOSE - POINT OF CARE (07/28/2024 12:36 AM CDT) [facility] Glucose WB/POC 164(H) 70 - 115 mg/dL 07/28/2024 12:36 AM CDT [facility] Specimen Type Cap Fingerstick 2023 12:36 AM CDT [facility] Blood BLOOD SPECIMEN / Unknown 07/28/2024 12:36 AM CDT 07/28/2024 12:36 AM CDT Geronimo Burleson MD LAB - POINT OF CARE ORDERABLES [facility] [address] [place] [address], [facility] [phone] * CT Chest Abdomen Pelvis W Cont [...] bases. > Dictated by Steve Haney, DO ??(residential tech). I, Arthur Avery MD have personally reviewed and interpreted this examination/study. > Interpreting Provider: Arthur Avery MD on 07/27/2024 5:19 PM Narrative 07/27/2024 5:19 PM CDT PROCEDURE: ??CT CHEST ABDOMEN PELVIS W CONT, DATE/TIME OF EXAM: ??07/27/2024 1:43 PM, LOCATION ??[facility] INDICATION: A41.9: Sepsis, due to unspecified organism, [...] CONT, DATE/TIME OF EXAM:07/27/2024 1:43 PM, LOCATION [facility] INDICATION: A41.9: Sepsis, due to unspecified organism, [...] bases. > Dictated by Steve Haney DO (residential tech). I, Arthur Avery MD have personally reviewed and interpreted this examination/study. > Interpreting Provider: Arthur Avery MD on 07/27/2024 5:19 [address] Bur[address]on MD CT ORDERABLES * (ABNORMAL) GLUCOSE - POINT OF CARE (07/27/2024 12:00 PM CDT) Glucose WB/POC 243(H) 70 - 115 mg/dL 07/27/2024 12:05 PM CDT [facility] Specimen Type Cap Fingerstick 2023 12:05 PM CDT [facility] Blood BLOOD SPECIMEN / Unknown 07/27/2024 12:00 PM CDT 07/27/2024 12:05 PM CDT Geronimo Burleson MD LAB - POINT OF CARE ORDERABLES [address] [address], [place] [phone] * (ABNORMAL) GLUCOSE - POINT OF CARE (07/27/2024 10:41 AM CDT) Glucose WB/POC 223(H) 70 - 115 mg/dL 07/27/2024 10:42 AM CDT [facility] Specimen Type Cap Fingerstick 2023 10:42 AM CDT [facility] Blood BLOOD SPECIMEN / Unknown 07/27/2024 10:41 AM CDT 07/27/2024 10:42 AM CDT Geronimo Burleson MD LAB - POINT OF CARE ORDERABLES [address] [address], [place] [phone] * (ABNORMAL) CULTURE WOUND+GRAM STAIN (07/27/2024 9:11 AM CDT) Culture Rare Staphylococcus aureus methicillin-resista nt (MRSA)(A) CHARLES 07/30/2024 4:29 AM CDT [facility] Comment:Staphylococcus aureu s methicillin-resistant (MRSA) detected by penicillin binding protein immunoassay. Contact precautions required. Conventional antibiotic susceptibility testing to follow. Gram Stain Light Polymorphonuclear cells 07/30/2024 4:29 AM CDT [facility] Gram Stain No organisms seen 024 4:29 AM CDT [facility] Microbiology ENTIRE SHOULDER REGION / Unknown Collection / Unknown 07/27/2024 9:11 AM CDT 07/27/2024 10:26 AM CDT Narrative [facility] - 07/30/2024 4:29 AM [...] - MICROBIOLOGY O DARRELL Performing Organization Address City/[facility] Co de Phone Number [facility] [address] [place], [place] [address], [facility] [phone] * CULTURE FUNGUS OTHER+FUNGUS SMEAR (07/27/2024 9:11 AM CDT) Culture No fungus isolated CHARLES 08/23/2024 6:22 AM CDT [facility] Fungus Stain No yeast or hyphae seen 08/23/2024 6:22 AM CDT [facility] Microbiology SYNOVIAL FLUID / Unknown Collection / Unknown 07/27/2024 9:11 AM CDT 07/27/2024 10:26 AM CDT Tao Chapman MD LAB - MICROBIOLOGY O DARRELL [facility] [address] [place] [address], [facility] [phone] * CULTURE ANAEROBE (07/27/2024 9:11 AM CDT) [facility] Culture No anaerobic organisms isolated CHARLES 08/01/2024 8:07 AM CDT [facility] Microbiology SYNOVIAL FLUID / Unknown Collection / Unknown 07/27/2024 9:11 AM CDT 07/27/2024 10:26 AM CDT Tao Chapman MD LAB - MICROBIOLOGY O RDERABLES Performing Organization Address [place] [facility] de Phone Number [facility] [address] [place] [address], [facility] [phone] * HCG BETA BLOOD QUANTITATIVE (07/27/2024 5:01 AM CDT) [facility] Beta-hCG Total Quantitative <3 mIU/mL 07/27/2024 6:15 AM CDT [facility] Comment: HCG Numeric Result Interpretation: ? [...] CDT Tao Chapman MD LAB - CHEMISTRY ORDE RABLIZA Performing Organization Address City/[facility] Co de Phone Number [facility] [address] [place] [address], [place] [phone] * (ABNORMAL) RENAL FUNCTION PANEL (07/27/2024 5:01 AM CDT) [facility] BUN 49(H) 7 - 26 mg/dL 07/27/2024 5:55 AM [facility] Creatinine 9.99(H) 0.56 - 0.96 mg/dL 07/27/2024 5:55 AM [facility] Sodium 132(L) 136 - 145 mmol/L 07/27/2024 5:55 AM [facility] Potassium 5.6(H) 3.5 - 4.5 mmol/L 07/27/2024 5:55 AM [facility] Chloride 105 98 - 107 mmol/L 07/27/2024 5:55 AM [facility] CO2 16(L) 22 - 29 mmol/L 07/27/2024 5:55 AM [facility] Glucose 150(H) 70 - 115 mg/dL 07/27/2024 5:55 AM [facility] Albumin 1.6(L) 3.4 - 5.0 g/dL 07/27/2024 5:55 AM [facility] Calcium 7.7(L) 8.4 - 10.2 mg/dL 07/27/2024 5:55 AM [facility] Phosphorus 7.7(H) 2.9 - 5.1 mg/dL 07/27/2024 5:55 AM [facility] Anion Gap 11 6 - 16 07/27/2024 5:55 AM [facility] BUN/Creatinine Ratio 5(L) 7 - 23 07/27/2024 5:55 AM [facility] Osmolality Calculated 290 275 - 295 mOsm/kg 07/27/2024 5:55 AM [facility] eGFR by CKD-EPI 5(L) >=90 mL/min/1.7 3 m2 07/27/2024 5:55 AM [facility] Blood BLOOD SPECIMEN / Unknown Venipuncture / Unknown 07/27/2024 5:01 AM T 07/27/2024 5:10 AM [facility] Ralph Burt MD LAB - CHEMISTRY ORDE WADE [facility] Organization Address City/State/ZIP Co de Phone Number [facility] [address] [place] [address], [facility] [phone] * (ABNORMAL) CBC W/O DIFFERENTIAL (07/27/2024 5:01 AM CDT) WBC 11.7(H) 4.0 - 10.7 x10E9/L 07/27/2024 5:27 AM [facility] RBC Count 3.08(L) 3.90 - 5.20 x10E12/L 07/27/2024 5:27 AM [facility] Hemoglobin 9.0(L) 11.9 - 15.8 g/dL 07/27/2024 5:27 AM [facility] Hematocrit 28.7(L) 34.8 - 46.1 % 07/27/2024 5:27 AM [facility] MCV 93.2 80.0 - 98.0 fL 07/27/2024 5:27 AM [facility] MCH 29.2 26.7 - 33.6 pg 07/27/2024 5:27 AM [facility] MCHC 31.4(L) 31.7 - 36.3 g/dL 07/27/2024 5:27 AM [facility] RDW-CV 13.7 11.3 - 14.8 % 07/27/2024 5:27 AM [facility] Platelet Count 339 150 - 420 x10E9/L 07/27/2024 5:27 AM [facility] MPV 9.5 7.8 - 11.4 fL 07/27/2024 5:27 AM [facility] Blood BLOOD SPECIMEN / Unknown Venipuncture / Unknown 07/27/2024 5:01 AM CDT 07/27/2024 5:10 AM CDT Ralph Burt MD LAB - HEMATOLOGY ORD ERABLES [facility] [address] [place] [address], [facility] [phone] * (ABNORMAL) CULTURE BLOOD (07/26/2024 11:08 PM CDT) Culture Growth of Staphylococcus aureus methicillin-resi stant (MRSA)(AA) 07/29/2024 11:50 AM CDT [facility] Comment:Staphylococcus aureu s methicillin-resistant (MRSA) detected by penicillin binding protein immunoassay. Contact precautions required. Conventional antibiotic susceptibility testing to follow. Gram Stain Gram-positive cocci in clusters(AA) 07/29/2024 11:50 AM CDT [facility] Blood PERIPHERAL BLOOD / Unknown Lab Venipuncture / Unknown 07/26/2024 11:08 PM CDT 07/26/2024 11:31 PM CDT Narrative [facility] - 07/29/2024 11:50 AM CDT Methicillin-resistant Staphylococci (MRSA) are resistant to all currently available beta-lactam antibiotics with the exception of the newer cephalosporins with anti-MRSA activity. Contact precautions required. Positive at 18 hours 59 minutes. Refer to previously reported susceptibility testing, specimen number: [id number] Infectious disease consultation strongly recommended, where available. Ralph Burt MD LAB - MICROBIOLOGY O RDERABLES [facility] [address] [phone] * (ABNORMAL) CULTURE BLOOD (07/26/2024 10:52 PM CDT) Culture Growth of Staphylococcus aureus methicillin-resi stant (MRSA)(AA) 07/29/2024 9:59 AM CDT [facility] Comment:Staphylococcus aureu s methicillin-resistant (MRSA) detected by penicillin binding protein immunoassay. Contact precautions required. Conventional antibiotic susceptibility testing to follow. Gram Stain Gram-positive cocci in clusters(AA) 07/29/2024 9:59 AM CDT [facility] Blood PERIPHERAL BLOOD / Unknown Lab Venipuncture / Unknown 07/26/2024 10:52 PM CDT 07/26/2024 11:31 PM CDT Narrative [facility] - 07/29/2024 9:59 AM CDT Methicillin-resistant Staphylococci (MRSA) are resistant to all currently available beta-lactam antibiotics with the exception of the newer cephalosporins with anti-MRSA activity. Contact precautions required. Positive at 15 hours 11 minutes. Refer to previously reported susceptibility testing, specimen number: [id number] Infectious disease consultation strongly recommended, where available. Ralph Burt MD LAB - MICROBIOLOGY O RDERABLES [facility] [address] [place] [address], [facility] [phone] * (ABNORMAL) GLUCOSE - POINT OF CARE (07/26/2024 7:54 PM CDT) Glucose WB/POC 136(H) 70 - 115 mg/dL 07/27/2024 4:17 AM CDT [facility] Specimen Type Cap Fingerstick 2023 4:17 AM CDT [facility] Blood BLOOD SPECIMEN / Unknown 07/26/2024 7:54 PM CDT 07/27/2024 4:17 AM CDT Ralph Burt MD LAB - POINT OF CARE ORDERABLES Performing Organization Address City/[facility]/ZIP Co de Phone Number [address] [address], [place] [phone] * (ABNORMAL) GLUCOSE - POINT OF CARE (07/26/2024 5:09 PM CDT) Glucose WB/POC 152(H) 70 - 115 mg/dL 07/27/2024 8:09 AM CDT [facility] Specimen Type Arterial 07/27/2024 8:09 AM CDT [facility] Blood BLOOD SPECIMEN / Unknown 07/26/2024 5:09 PM CDT 07/27/2024 8:09 AM CDT Ralph Burt MD LAB - POINT OF CARE ORDERABLES Performing Organization Address City/[facility]/ZIP Co de Phone Number [address] [address], [place] [phone] * TYPE + SCREEN PANEL (07/26/2024 3:48 PM CDT) Antibody Screen NEG 5:04 PM CDT [facility] ABO Rh A POS 07/26/2024 5:04 PM CDT [facility] Blood Bank BLOOD SPECIMEN / Unknown Lab Venipuncture / Unknown 07/26/2024 3:48 PM CDT 07/26/2024 4:20 PM CDT Ralph Burt MD LAB - BLOOD BANK ORD ERABLES [facility] [address] [place] [address], [facility] [phone] * XR Shoulder Right 2Vw or More (07/26/2024 2:29 PM CDT) Anatomical Region Laterality Modality Upper Extremity Radiographic Nissa ging 07/26/2024 4:25 PM CDT Impressions 07/26/2024 4:28 PM CDT IMPRESSION: Osseous erosions of the humeral head and scapula, 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 Findings are further characterized outside hospital CT from 07/25/2024 ([facility]). No acute fracture or dislocation. Partially [...] further characterized outside hospital CT from 07/25/2024 ([facility]). No acute fracture or dislocation. Partially imaged airspace opacity in the setting of the right lung. Recommend attention to dedicated chest radiograph. > Interpreting Provider: Matt Maguire MD on 07/26/2024 4:28 PM Ralph Burt MD DIAGNOSTIC IMAGING O RDERABLES * DIFFERENTIAL MANUAL FLUID (07/26/2024 1:20 PM CDT) Fluid Source Synovial 07/26/2024 3:32 PM CDT [facility] Body Fluid Total Cell Count 100 x10E6/L 07/26/2024 3:32 PM CDT [facility] Neutrophils Fluid Percent 97 % 07/26/2024 3:32 PM CDT [facility] Macrophages Fluid Percent 3 % 07/26/2024 3:32 PM CDT [facility] Fluid SYNOVIAL FLUID / Unknown Collection / Unknown 07/26/2024 1:20 PM CDT 07/26/2024 1:35 PM CDT Narrative [facility] - 07/26/2024 3:32 PM CDT No reference ranges established for body fluid differential cell counts. ??The test results must be integrated into the clinical context for interpretation. Ralph Burt MD LAB - BODY FLUID ORD ERABLES Performing Organization Address City/[facility]/ZIP Co de Phone Number [facility] [address] [place] [address], [place] [phone] * PATHOLOGY SMEAR BODY FLUID (07/26/2024 1:20 PM CDT) Path Review Fluid Confirmed 07/27/2024 2:02 PM CDT [facility] Fluid SYNOVIAL FLUID / Unknown Collection / Unknown 07/26/2024 1:20 PM CDT 07/26/2024 1:20 PM CDT Narrative [facility] - 07/27/2024 2:02 PM CDT Synovial fluid [...] - PATHOLOGY/CYTO LOGY ORDERABLES Performing Organization Address [facility] Co de Phone Number [facility] [address] [place] [address], [place] [phone] * CULTURE ANAEROBE (07/26/2024 1:20 PM CDT) Culture No anaerobic organisms isolated CHARLES 08/01/2024 8:07 AM CDT [facility] Microbiology SYNOVIAL FLUID / Unknown 07/26/2024 1:20 PM CDT 07/26/2024 1:20 PM CDT Ralph Burt MD LAB - MICROBIOLOGY O RDERABLES [facility] [address] [place] [address], [facility] [phone] * CRYSTAL INDENTIFICATION SYNOVIAL FLUID (07/26/2024 1:20 PM CDT) Crystal Exam Fluid To be performed by Pathology. See Path Review. 07/26/2024 2:30 PM CDT [facility] Fluid SYNOVIAL FLUID / Unknown Collection / Unknown 07/26/2024 1:20 PM CDT 07/26/2024 1:20 PM CDT Ralph Burt MD LAB - BODY FLUID ORD ERABLES [facility] [address] [place] [address], [facility] [phone] * (ABNORMAL) CULTURE FLUID+GRAM STAIN (07/26/2024 1:20 PM CDT) Culture Heavy Staphylococcus aureus methicillin-resistan t (MRSA)(AA) CHARLES 07/30/2024 3:33 AM CDT [facility] Gram Stain Heavy Polymorphonuclear cells(AA) 07/30/2024 3:33 AM CDT [facility] Gram Stain Light Gram-positive cocci(AA) 07/30/2024 3:33 AM CDT [facility] Other SYNOVIAL FLUID / Unknown Collection / Unknown 07/26/2024 1:20 PM CDT 07/26/2024 1:20 PM CDT Narrative [facility] - 07/30/2024 3:33 AM CDT Methicillin-resistant [...] ug/mL: Resistant Staphylococcus aureus methicillin-resistant (MRSA) Vancomycin CHRALES 1 ug/mL: Susceptible Ralph Burt MD LAB - MICROBIOLOGY O RDERABLES Performing Organization Address City/[facility]/ZIP Co de Phone Number [facility] [address] [place] [address], [facility] [phone] * (ABNORMAL) CELL COUNT W DIFFERENTIAL FLUID (07/26/2024 1:20 PM CDT) Fluid Source Synovial 07/26/2024 3:32 PM CDT [facility] Fluid Appearance CLOUDY 07/26/2024 3:32 PM CDT [facility] Fluid Color PALE YELLOW 07/26/2024 3:32 PM CDT [facility] Total Nucleated Cells Fluid 219,660(H) <=200 x10E6/L 07/26/2024 3:32 PM CDT [facility] RBC Count Fluid 15,000 Reference Range Not Established x10E6/L 07/26/2024 3:32 PM CDT [facility] Fluid SYNOVIAL FLUID / Unknown Collection / Unknown 07/26/2024 1:20 PM CDT 07/26/2024 1:35 PM CDT Narrative [facility] - 07/26/2024 3:32 PM CDT No reference ranges established for body fluid cell counts. Any reference ranges provided are derived from published literature. The test results must be integrated into the clinical context for interpretation. Ralph Burt MD LAB - BODY FLUID ORD ERABLES Performing Organization Address [facility]/ZIP Co de Phone Number [facility] [address] [place] [address], [facility] [phone] * (ABNORMAL) GLUCOSE - POINT OF CARE (07/26/2024 12:23 PM CDT) Glucose WB/POC 150(H) 70 - 115 mg/dL 07/26/2024 12:29 PM CDT [facility] Specimen Type Cap Fingerstick 2023 12:29 PM CDT [facility] Blood BLOOD SPECIMEN / Unknown 07/26/2024 12:23 PM CDT 07/26/2024 12:29 PM CDT Ralph Burt MD LAB - POINT OF CARE ORDERABLES Performing Organization Address [facility]/ZIP Co de Phone Number [address] [address], [facility] [phone] * VANCOMYCIN LEVEL RANDOM (07/26/2024 9:23 AM CDT) Vancomycin Random 32.2 Therapeutic Ranges not established for random specimens ug/mL 07/26/2024 10:22 AM CDT [facility] Blood BLOOD SPECIMEN / Unknown Lab Venipuncture / Unknown 07/26/2024 9:23 AM CDT 07/26/2024 9:23 AM CDT Narrative [facility] - 07/26/2024 10:22 AM CDT See institution protocol. Ralph Burt MD LAB - CHEMISTRY ORDE RABLES Performing Organization Address [facility] Co de Phone Number [address] [address], [facility] [phone] * (ABNORMAL) B-TYPE NATRIURETIC PEPTIDE (07/26/2024 8:50 AM CDT) BNP 380(H) <100 pg/mL 07/26/2024 9:33 AM CDT [facility] Comment: A decision threshold of 100 pg/mL [...] - CHEMISTRY DIVINA OLVERA Performing Organization Address [facility] de Phone Number [facility] [address] [place] [address], [facility] [phone] * (ABNORMAL) PROCALCITONIN LEVEL (07/26/2024 8:50 AM CDT) PROCALCITONIN 2.18(H) <=0.10 ng/mL 07/26/2024 9:52 AM CDT [facility] Blood BLOOD SPECIMEN / Unknown Lab Venipuncture / Unknown 07/26/2024 8:50 AM CDT 07/26/2024 8:59 AM CDT Narrative [facility] - 07/26/2024 9:52 AM CDT The change [...] Change in Procalcitonin Calculator is available at [email or web address] ?? If clinical picture has not improved and PCT remains high, reevaluate and consider treatment failure or other causes. Ralph Burt MD LAB - CHEMISTRY DIVINA OLVERA [facility] Organization Address City/State/[facility] Co de Phone Number [facility] [address] [place] [address], [facility] [phone] * (ABNORMAL) RENAL FUNCTION PANEL (07/26/2024 8:50 AM CDT) Pathologist [facility] BUN 38(H) 7 - 26 mg/dL 07/26/2024 10:02 AM [facility] Creatinine 8.40(H) 0.56 - 0.96 mg/dL 07/26/2024 10:02 AM [facility] Sodium 133(L) 136 - 145 mmol/L 07/26/2024 10:02 AM [facility] Potassium 5.3(H) 3.5 - 4.5 mmol/L 07/26/2024 10:02 AM [facility] Chloride 108(H) 98 - 107 mmol/L 07/26/2024 10:02 AM [facility] CO2 14(L) 22 - 29 mmol/L 07/26/2024 10:02 AM [facility] Glucose 161(H) 70 - 115 mg/dL 07/26/2024 10:02 AM [facility] Albumin 1.8(L) 3.4 - 5.0 g/dL 07/26/2024 10:02 AM [facility] Calcium 8.1(L) 8.4 - 10.2 mg/dL 07/26/2024 10:02 AM [facility] Phosphorus 7.4(H) 2.9 - 5.1 mg/dL 07/26/2024 10:02 AM [facility] Anion Gap 11 6 - 16 07/26/2024 10:02 AM [facility] BUN/Creatinine Ratio 5(L) 7 - 23 07/26/2024 10:02 AM [facility] Osmolality Calculated 289 275 - 295 mOsm/kg 07/26/2024 10:02 AM [facility] eGFR by CKD-EPI 6(L) >=90 mL/min/1.7 3 m2 07/26/2024 10:02 AM [facility] Blood BLOOD SPECIMEN / Unknown Lab Venipuncture / Unknown 07/26/2024 8:50 AM CDT 07/26/2024 8:59 AM T Ralph Burt MD LAB - CHEMISTRY ORDE [facility] Organization Address City/State/ZIP Co de Phone Number [facility] [address] [place] [address], [facility] [phone] * (ABNORMAL) CBC W/O DIFFERENTIAL (07/26/2024 8:50 AM T) WBC 11.9(H) 4.0 - 10.7 x10E9/L 07/26/2024 9:19 AM [facility] RBC Count 3.38(L) 3.90 - 5.20 x10E12/L 07/26/2024 9:19 AM [facility] Hemoglobin 9.7(L) 11.9 - 15.8 g/dL 07/26/2024 9:19 AM [facility] Hematocrit 31.6(L) 34.8 - 46.1 % 07/26/2024 9:19 AM [facility] MCV 93.5 80.0 - 98.0 fL 07/26/2024 9:19 AM [facility] MCH 28.7 26.7 - 33.6 pg 07/26/2024 9:19 AM [facility] MCHC 30.7(L) 31.7 - 36.3 g/dL 07/26/2024 9:19 AM [facility] RDW-CV 13.6 11.3 - 14.8 % 07/26/2024 9:19 AM [facility] Platelet Count 283 150 - 420 x10E9/L 07/26/2024 9:19 AM [facility] MPV 9.6 7.8 - 11.4 fL 07/26/2024 9:19 AM [facility] Blood BLOOD SPECIMEN / Unknown Lab Venipuncture / Unknown 07/26/2024 8:50 AM CDT 07/26/2024 8:59 AM CDT Ralph Burt MD LAB - HEMATOLOGY ORD ERABLES Performing Organization Address City/State/[facility] Co de Phone Number [facility] [address] [place] [address], [facility] [phone] * XR Chest 1Vw Portable (07/25/2024 11:57 PM CDT) Anatomical Region Laterality Modality Chest Radiographic Nissa ging 07/26/2024 10:0 7 AM CDT Narrative 07/26/2024 2:30 PM CDT PROCEDURE: ??XR CHEST 1VW PORTABLE, DATE/TIME OF EXAM: ??07/25/2024 11:57 PM, LOCATION ??[facility] INDICATION: J18.9: Pneumonia of both lungs due [...] intact. Report dictated by Yo Austin MD, (residential tech). Franci Kim MD have personally reviewed and interpreted this examination/study. > Interpreting Provider: Franci Morin MD on 07/26/2024 2:30 PM Procedure Note Franci Morin MD - 07/26/2024 PROCEDURE: XR CHEST 1VW PORTABLE, DATE/TIME OF EXAM: 07/25/2024 11:57PM, LOCATION [facility] INDICATION: J18.9: Pneumonia of both lungs due [...] intact. Report dictated by Yo Austin MD, (residential tech). Franci Kim MD have personally reviewed and interpreted this examination/study. > Interpreting Provider: Franci Morin MD on 07/26/2024 2:30 PM Ralph Burt MD DIAGNOSTIC IMAGING O RDERABLES * (ABNORMAL) CULTURE BLOOD (07/25/2024 11:18 PM CDT) Culture Growth of Staphylococcus aureus methicillin-resi stant (MRSA)(AA) 07/28/2024 11:10 AM CDT [facility] Comment:Staphylococcus aureu s methicillin-resistant (MRSA) detected by penicillin binding protein immunoassay. Contact precautions required. Conventional antibiotic susceptibility testing to follow. Gram Stain Gram-positive cocci in clusters(AA) 07/28/2024 11:10 AM CDT [facility] Blood PERIPHERAL BLOOD / Unknown Lab Venipuncture / Unknown 07/25/2024 11:18 PM CDT 07/25/2024 11:24 PM CDT Narrative [facility] - 07/28/2024 11:10 AM CDT Methicillin-resistant Staphylococci (MRSA) are resistant to all currently available beta-lactam antibiotics with the exception of the newer cephalosporins with anti-MRSA activity. Contact precautions required. Contact precautions required. Positive at 12 hours 7 minutes. Infectious disease consultation strongly recommended, where available. Refer to previously reported susceptibility testing, specimen number: [id number] Ralph Burt MD LAB - MICROBIOLOGY O RDERABLES [facility] [address] [place], [address] [phone] * (ABNORMAL) BCID PANEL (07/25/2024 11:16 PM CDT) [facility] Staphylococcus aureus Detected (A) Not detected 07/26/2024 4:44 PM CDT [facility] MECA/C and MREJ (Methicillin-Resi stance Gene) Detected (A) Not detected 07/26/2024 4:44 PM CDT [facility] Comment:Results indicate met hicillin-resistant Staphylococcus aureus (MRSA). Methicillin resistance detected. Blood PERIPHERAL BLOOD / Unknown Lab Venipuncture / Unknown 07/25/2024 11:16 PM CDT 07/25/2024 11:24 PM CDT Narrative [facility] - 07/26/2024 4:44 PM CDT Blood Culture ID Panel performed by Ibotta multiplex PCR. The Test panel includes: Gram [...] MREJ (methicillin- resistance - MRSA), NDM ([place] vbserhn-dlie-qfvbyyhlg), OXA-48-like (oxacillinase beta-lactamase),Geo/B (vancomycin-resistance), VIM (Bard Intergrom-Encoded Metallo beta-lactamase). Ralph Burt MD LAB - MICROBIOLOGY O RDERABLES [facility] [address] [place], [place] [address], [facility] [phone] * (ABNORMAL) CULTURE BLOOD (07/25/2024 11:16 PM CDT) Culture Growth of Staphylococcus aureus methicillin-resi stant (MRSA)(AA) CHARLES 07/28/2024 2:40 PM CDT [facility] Comment:Staphylococcus aureu s methicillin-resistant (MRSA) detected by penicillin binding protein immunoassay. Contact precautions required. Conventional antibiotic susceptibility testing to follow. Gram Stain Gram-positive cocci in clusters(AA) 07/28/2024 2:40 PM CDT [facility] Blood PERIPHERAL BLOOD / Unknown Lab Venipuncture / Unknown 07/25/2024 11:16 PM CDT 07/25/2024 11:24 PM CDT Narrative [facility] - 07/28/2024 2:40 PM CDT Methicillin-resistant [...] - MICROBIOLOGY O RDERABLES Performing Organization Address City/[facility]/ZIP Co de Phone Number [facility] [address] [place] [address], [facility] [phone] * PTT [facility] (07/25/2024 11:16 PM CDT) APTT 30.3 23.0 - 38.4 Seconds 07/25/2024 11:55 PM CDT [facility] Comment:Suggested therapeuti c range for full dose I.V. unfractionated heparin therapy for venous thromboembolism is 71 to 109 seconds. Blood BLOOD SPECIMEN / Unknown Lab Venipuncture / Unknown 07/25/2024 11:16 PM CDT 07/25/2024 11:26 PM CDT Ralph Burt MD LAB - COAGULATION OR DERABLES Performing Organization Address [facility] Co de Phone Number [facility] [address] [place] [address], [place] [phone] * (ABNORMAL) PT-INR [facility] (07/25/2024 11:16 PM CDT) PT 15.3(H) 12.1 - 14.8 Seconds 07/25/2024 11:55 PM CDT [facility] INR 1.2 See Comment 07/25/2024 11:55 PM CDT [facility] Comment:The suggested therap eutic [...] - COAGULATION OR DERABLES Performing Organization Address City/[facility]/ZIP Co de Phone Number [address] [address], [place] [phone] * LACTIC ACID BLOOD (07/25/2024 11:16 PM CDT) Lactic Acid-Stat 0.6 <=2.0 mmol/L 07/25/2024 11:53 PM CDT [facility] Blood BLOOD SPECIMEN / Unknown Lab Venipuncture / Unknown 07/25/2024 11:16 PM CDT 07/25/2024 11:26 PM CDT Ralph Burt MD LAB - CHEMISTRY ORDE RABLES Performing Organization Address [facility]/ZIP Co de Phone Number [address] [address], [facility] [phone] * (ABNORMAL) ERYTHROCYTE SEDIMENTATION RATE (07/25/2024 11:16 PM CDT) Pathologist [facility] Erythrocyte Sedimentation Rate [place] 120(H) 0 - 20 MM/HR 07/25/2024 11:56 PM CDT [facility] Blood BLOOD SPECIMEN / Unknown Lab Venipuncture / Unknown 07/25/2024 11:16 PM CDT 07/25/2024 11:27 PM CDT Ralph Burt MD LAB - HEMATOLOGY ORD ERABLES Performing Organization Address [facility]/ZIP Co de Phone Number [address] [id number], [place] [phone] * (ABNORMAL) C-REACTIVE PROTEIN (07/25/2024 11:16 PM CDT) C-Reactive Protein 28.3(H) <=0.5 mg/dL 07/25/2024 11:58 PM CDT [facility] Blood BLOOD SPECIMEN / Unknown Lab Venipuncture / Unknown 07/25/2024 11:16 PM CDT 07/25/2024 11:27 PM CDT Ralph Burt MD LAB - CHEMISTRY DIVINA OLVERA [facility] [address] [place] [address], [facility] [phone] * (ABNORMAL) RENAL FUNCTION PANEL (07/25/2024 11:16 PM CDT) BUN 36(H) 7 - 26 mg/dL 07/25/2024 11:58 PM [facility] Creatinine 7.46(H) 0.56 - 0.96 mg/dL 07/25/2024 11:58 PM [facility] Sodium 134(L) 136 - 145 mmol/L 07/25/2024 11:58 PM [facility] Potassium 4.7(H) 3.5 - 4.5 mmol/L 07/25/2024 11:58 PM [facility] Chloride 107 98 - 107 mmol/L 07/25/2024 11:58 PM [facility] CO2 18(L) 22 - 29 mmol/L 07/25/2024 11:58 PM [facility] Glucose 138(H) 70 - 115 mg/dL 07/25/2024 11:58 PM [facility] Albumin 1.9(L) 3.4 - 5.0 g/dL 07/25/2024 11:58 PM [facility] Calcium 8.3(L) 8.4 - 10.2 mg/dL 07/25/2024 11:58 PM [facility] Phosphorus 6.5(H) 2.9 - 5.1 mg/dL 07/25/2024 11:58 PM [facility] Anion Gap 9 6 - 16 07/25/2024 11:58 PM [facility] BUN/Creatinine Ratio 5(L) 7 - 23 07/25/2024 11:58 PM [facility] Osmolality Calculated 289 275 - 295 mOsm/kg 07/25/2024 11:58 PM [facility] eGFR by CKD-EPI 7(L) >=90 mL/min/1.7 3 m2 07/25/2024 11:58 PM [facility] Blood BLOOD SPECIMEN / Unknown Lab Venipuncture / Unknown 07/25/2024 11:16 PM CDT 07/25/2024 11:27 PM CDT Ralph Burt MD LAB - CHEMISTRY DIVINA OLVERA [facility] Organization Address City/State/ZIP Co de Phone Number [facility] [address] [place] [address], [facility] [phone] * (ABNORMAL) CBC W/O DIFFERENTIAL (07/25/2024 11:16 PM CDT) WBC 13.0(H) 4.0 - 10.7 x10E9/L 07/25/2024 11:33 PM [facility] RBC Count 3.35(L) 3.90 - 5.20 x10E12/L 07/25/2024 11:33 PM [facility] Hemoglobin 9.5(L) 11.9 - 15.8 g/dL 07/25/2024 11:33 PM [facility] Hematocrit 31.7(L) 34.8 - 46.1 % 07/25/2024 11:33 PM [facility] MCV 94.6 80.0 - 98.0 fL 07/25/2024 11:33 PM [facility] MCH 28.4 26.7 - 33.6 pg 07/25/2024 11:33 PM [facility] MCHC 30.0(L) 31.7 - 36.3 g/dL 07/25/2024 11:33 PM [facility] RDW-CV 13.6 11.3 - 14.8 % 07/25/2024 11:33 PM [facility] Platelet Count 269 150 - 420 x10E9/L 07/25/2024 11:33 PM [facility] MPV 10.0 7.8 - 11.4 fL 07/25/2024 11:33 PM CDT [facility] Blood BLOOD SPECIMEN / Unknown Lab Venipuncture / Unknown 07/25/2024 11:16 PM CDT 07/25/2024 11:27 PM CDT Ralph Burt MD LAB - HEMATOLOGY ORD ERABLES [address] [address], [place] [phone] * (ABNORMAL) GLUCOSE - POINT OF CARE (07/25/2024 8:47 PM CDT) [facility] Glucose WB/POC 161(H) 70 - 115 mg/dL 07/26/2024 6:12 AM CDT [facility] Specimen Type Cap Fingerstick 2023 6:12 AM CDT [facility] Blood BLOOD SPECIMEN / Unknown 07/25/2024 8:47 PM CDT 07/26/2024 6:12 AM CDT Ralph Burt MD LAB - POINT OF CARE ORDERABLES Performing Organization Address City/[facility]/ZIP Co de Phone Number [address] [address], [place] [phone] documented in this encounter Visit Diagnoses Diagnosis MRSA bacteremia- Primary Bacteremia Pneumonia of both lungs due to infectious organism, unspecified part of lung Pyogenic arthritis of right shoulder region, due to unspecified organism ([facility]) Acute pain of right shoulder Sepsis, due to unspecified organism, unspecified whether acute organ dysfunction present ([facility]) Swelling of right upper extremity Sepsis due to methicillin resistant Staphylococcus aureus (MRSA), unspecified whether acute organ dysfunction present ([facility]) Chronic heel ulcer, right, with unspecified severity ([facility]) ESRD (end stage renal disease) ([facility]) End stage renal disease Hypoxia Hypoxemia Osteomyelitis of right foot, unspecified type ([facility]) Pyogenic arthritis of right shoulder region, due to unspecified organism ([facility]) Pneumonia of both lungs due to infectious organism, unspecified part of lung S/P AKA (above knee amputation) unilateral, left ([facility]) 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, with long-term current use of insulin ([facility]) Essential hypertension ESRD (end stage renal disease) ([facility]) End stage renal disease Anemia Anemia, unspecified 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 (HCC) CHF (congestive heart failure) (HCC) Congestive heart failure, unspecified Acute pain of right shoulder Pyogenic arthritis of right shoulder region, due to unspecified organism (HCC) documented in this encounter Administered Medications [...] flush, Starting on Fri08/03/24 at 1713, Until Fri08/09/24 at 1402, Flush each lumen of mid-line [...] Fever, Starting on Fri07/25/24 at 2225, Until Fri08/09/24 at 1402, Patient preference for [...] Given 08/08/2024 9:23 AM CDT 3.125 mg dextrose 10 % IV bolus 12.5 g, [...] FRI, FRI & FRI, First dose on Fri07/27/24 at 1700, Until Discontinued $ Given 08/07/2024 3:50 PM CDT 5,000 Units $ Given 08/05/2024 7:33 PM CDT 5,000 Units R ight Neck $ Given 08/03/2024 12:07 PM CDT 5,000 Units ferrous sulfate tablet 325 mg 325 mg, Oral, DAILY WITH BREAKFAST, First dose on Fri07/26/24 at 0800, Until Discontinued, Take with food. Do not take within 2 hours of other medications. $ Given 08/09/2024 8:29 AM CDT 325 mg $ Given 08/08/2024 9:24 AM CDT 325 mg $ Given 08/07/2024 8:42 AM CDT 325 mg gabapentin (Neurontin) capsule 300 mg 300 mg, Oral, EVERY FRI, FRI AND FRI, First dose on Fri07/26/24 at 1700, Until Discontinued $ Given 08/06/2024 5:19 PM CDT 300 mg $ Given 08/04/2024 5:48 PM CDT 300 mg $ Given 08/02/2024 5:52 PM CDT 300 mg glucagon (Glucagen) injection 1 mg 1 mg, Subcutaneous, PRN, Bedside Glucose less than 70 mg/dL - If NOT able to eat and/or NPO and withOUT IV Access, Starting on Fri07/25/24 at 2246, [...] mg/dL, Starting on Fri07/25/24 at 2246, Until Fri08/09/24 at 1402, If able to take oral [...] PRN, Post Hemodialysis Catheter Dwell, Starting on 08/03/24 at 1225, Until 08/09/24 at 1402, Dwell 1.4 mL in red lumen and 1.4 mL in blue lumen of hemodialysis catheter post hemodialysis treatment $ Given 08/05/2024 7:36 PM CDT 2,800 Units Left Neck $ Given 08/03/2024 12:51 PM CDT 2,800 Units HYDROmorphone (Dilaudid) injection 0.2 mg 0.2 mg, [...] Given 08/09/2024 12:19 AM CDT 0.2 mg oxyCODONE (immediate release) (Roxicodone) tablet [...] oral intake $ Given 08/09/2024 8:31 AM CDT 10 mg $ Given 08/08/2024 8:47 PM CDT 10 mg $ Given 08/06/2024 5:19 PM CDT 10 mg polyethylene glycol 3350 (Miralax) packet 17 g 17 g, Oral, DAILY, First dose on Fri08/06/24 at 1800, Until Discontinued, Mix in 8 ounces of water, juice, soda, coffee or tea prior to administration renal vitamin (Dialyvite) tablet 1 tablet 1 tablet, Oral, DAILY, First dose on 07/26/24 at 0900, Until Discontinued $ Given 08/09/2024 [...] Given 08/08/2024 5:46 PM CDT 1,600 mg vancomycin (Vancocin) 750 mg in 0.9% NaCl IV 250 mL IVPB 750 mg, at 333.33 mL/hr, Intravenous, EVERY , AND FRI, First dose (after last modification) on Blue 08/05/24 at 1700, Until Discontinued, Please administer after [...] RN)1344 ($ Given - Provider: Willie Garcia RN)204 ($ Given - Provider: Lenin Fang RN) [...] 0923 ($ Given - Provider: Willie Garcia RN)204 ($ Given - Provider: Lenin Fang RN) 0828 ($ Given - Provider: Willie Garcia, JIMMIE) apixaban (Eliquis) tablet 5 mg(Linked Group 2) [...] 0923 ($ Given - Provider: Willie Garcia RN)1746 ($ Given - Provider: Willie Garcia RN) 0828 ($ Given - Provider: Willie Garcia, RN) epoetin carlin-EPBX (Retacrit) 5,000 unit injection 5,000 Units, Intravenous, DIALYSIS EVERY FRI, FRI & FRI, First dose on Fri07/27/24 at 1700, Until Discontinued 1550 ($ Given - Provider: Ashleigh Saul RN) ferrous sulfate tablet 325 mg 325 mg, Oral, DAILY WITH BREAKFAST, First dose on Fri07/26/24 at 0800, Until Discontinued, Take with food. Do not take within 2 hours of other medications. 0842 ($ Given - Provider: Theresa Preston RN) 0924 ($ Given - Provider: Willie Garcia, JIMMIE) 0829 ($ Given - Provider: Willie Garcia RN) gabapentin (Neurontin) capsule 300 mg 300 mg, Oral, EVERY FRI, FRI AND FRI, First dose on Fri07/26/24 at 1700, Until Discontinued heparin injection 1,000 Units (COMPLETED)(Linked Group 3) 1,000 Units, Intracatheter, ONCE DIALYSIS, 1 dose, On Fri08/07/24 at 0700, FOR USE IN DIALYSIS ONLY 1427 ($ Given - Provider: Ashleigh Saul RN) heparin injection 500 Units ()(Linked Group 3) 500 Units, Intracatheter, EVERY HOUR, 6 doses, First dose on Fri08/07/24 at 0700, Last dose on Fri08/07/24 at 1200, FOR USE IN DIALYSIS ONLY 0700 (Due)0800 (Due)1000 (Due)1100 (Due)1200 (Due)1527 ($ Given - Provider: Ashleigh Saul RN) polyethylene glycol 3350 (Miralax) packet 17 [...] 5,000 Units, Oral, DAILY, First dose on Fri07/31/24 at 0900, Until Discontinued, 5000 units = [...] flush, Starting on Fri08/03/24 at 1713, Until Fri08/09/24 at 1402, Flush each lumen of mid-line [...] Fever, Starting on Fri07/25/24 at 2225, Until Fri08/09/24 at 1402, Patient preference for [...] PRN, Post Hemodialysis Catheter Dwell, Starting on 08/03/24 at 1225, Until 08/09/24 at 1402, Dwell 1.4 mL in red lumen and 1.4 mL in blue lumen of hemodialysis catheter post hemodialysis treatment HYDROmorphone (Dilaudid) injection 0.2 mg 0.2 mg, Intravenous, EVERY 4 HOURS PRN, Severe Pain, Starting on 08/07/24 at 0753, Until 10/7/24 at 1402, Patient preference for lesser PRN [...] first unless patient cannot tolerate oral intake 7 ($ Given - Provider: Lenin Fang, RN) 0831 ($ Given - Provider: Willie Garcia RN) Linked Groups Order Group 1: SALINE LOCK, INSERT AND MAINTAIN (CANCELED) Routine, CONTINUOUS, Starting on 07/25/24 at 2200, Until Specified, New collection And 0.9% NaCl injection 3 mLJump to med 3 mL, Intracatheter, EVERY 8 HOURS, First dose on 07/25/24 at 2230, Until Discontinued, Flush peripheral IV [...] on 08/07/24 at 0700, Last dose on [facility] 08/07/24 at 1200, FOR USE IN DIALYSIS ONLY Group 4: dextrose 10 % IV bolusJump to med 12.5 g, at 468.75 mL/hr, Intravenous, PRN, Other, Bedside Glucose less than 70 mg/dL -If NOT able to eat and/or NPO and with IV Access, Starting on [place] 07/25/24 at 2246, Until 08/09/24 at 1402, [...] documented as of this encounter Care Teams W[employer] Relationship Specialty Start Date End Date Cherise Marcelo PA-C [address] [place] [address] PCP - General 02/23/24 documented as of this encounter
--- OUTSIDE RECORDS SUMMARY | 2024-11-17 03:00 | XMS_ITS | Encounter Summary ---
Author Organization [facility] Address [address] [place] [address] Care Team Providers Care Irrigation Supervisor Name Role Phone Cherise Patrick PA-C Primary Care Provider Reason for Visit * Auth/Cert (Routine) Specialty Diagnoses / Procedures Referred By Contac t Referred To Contact Diagnoses Pneumonia, Septic Arthritis Referral ID Status Reason Start Date Expiration Date Visits Re quested Visits Authorized [id number] 1 1 Encounter Details Date Type Department Care Team (Late st Contact Info) Description 07/27/2024 7:35 AM CDT Anesthesia Event [facility] [address] [place] [address] Kavita Oneill MD [address] [place] [id number] Mohit Escalante DO [address] [facility] [place] [address] Anesthesia Record Procedure Summary Procedure Name Responsible Anesthesiologist Anesthesia Start Time Anesthesia Stop Time RIGHT SHOULDER INCISION AND DEBRIDEMENT (Right) Kavita Oneill MD 07/27/24 0735 07/27/24 1021 Events Date Time Event Comment 07/27/2024 0720 0735 An Start 0735 Pt In Room 0735 An Start Data 0740 PT Reassessment 0742 Induction 0745 An Intubation 0804 Anes Ready 0820 Time Out Anesthesia part icipated in timeout at the time documented in the record by nursing 0821 Proc Start 1002 Proc Stop 1005 An Emergence 1012 Extubation 1014 ANPTO2 1014 an stop data 1015 Pt out of Room 1021 An Stop Meds Name Total ceFAZolin 2,000 mg IVPB 2 g fentaNYL 100 mcg/2ml injection 175 mcg lidocaine PF 2% 80 mg propofol 200mg/20mL injection 100 mg rocuronium 50 mg/5 mL injection 50 mg phenylephrine 100 mcg/mL syringe 400 mcg ondansetron 4mg/2mL injection 4 mg sugammadex 200 mg/2mL injection 200 mg ePHEDrine injection 30 mg vasopressin (Vasostrict) 40 Units in dex trose 5 % 40 mL infusion 4 Units NS (0.9% NaCl) 300 mL * Agents Name Insp. N2O Exp. Sevoflurane Exp. N2O O2 Air Insp. Sevoflurane * Blood No blood administrations on file. Lines, Drains, and Airways Type Details Placement Removal Procedural Site (Incision) Right; Shoulder; surgical site; 08/09/24; 185607/27/24 0915 by 08/09/241856 by Generic, Auto Release Hemodialysis Tunneled Catheter 02/25/24; 1059; Dr Khalilu; Internal Jugular; Right; perm catheter; 07/28/24; 1901 02/25/24 1059 by Maribell Mejias RN 07/28/24 1901 by Del Knott, JIMMIE Other Wound 07/25/24; 0410; Yes; Plantar, Right; 08/09/24; 185607/25/24 0410 by Roxanna Stein RN 08/09/24 185 by Generic, Auto Release Other Wound 07/25/24; 0411; Yes; Lower, Right; Flank; 08/09/24; 185607/25/24 0411 by Roxanna Stein RN 08/09/241856 by Generic, Auto Release Peripheral IV Date: 07/25/24; Time : 0700; Orientation: Anterior, Right; Location: Forearm; Gauge: 18 G 07/25/24 0700 by Gretchen Jaramillo RN 07/27/24 1010 by Roxanna Galeana RN Peripheral IV Date: 07/25/24; Time : 0700; Orientation: Left, Posterior; Location: Forearm; Gauge: 18 G 07/25/24 0700 by Gretchen Jaramillo RN 07/27/24 1107 by Roxanna Galeana RN Other Wound 07/25/24; 1999; Yes; Anterior, Lower, Right; Leg; 08/09/24; 1857 07/25/241999 by Roxanna Stein RN 08/09/241856 by Generic, Auto Release Drain 07/27/24; Tao briceno MD; 1; Round; Accordian; Anterior, Right; Shoulder; General Anesthesia; 07/30/24; 1310; Per protocol; [facility] 07/27/24 0000 by Carolynn Gamez RN 07/30/24 1310 by Nohemi Shahid PA-C ETT Date: 07/27/24; Time : 0745; Placed By: Lee Ayala MD; Vent: easy with oral airway mask; Induction: Standard IV; Blade Type: Video; Blade Size: 3; Laryngoscopy View: Grade 1 (full cords); Intubation Adjuncts: Stylet, Video Laryngoscope; Tube: Endotracheal Tube; Placement: Oral; Tube Type: Cuffed-inflated; Tube Size(mm): 7 MM; Depth of Insertion: 22 CM; Measured From: teeth; Attempts: 1; Cuff Infated: Air; Verified By: Direct visualization, Bilateral breath sounds, Chest Auscultation, CO2 Monitor 07/27/24 0745 by Lee Ayala MD 07/27/24 1012 by Lee Ayala MD documented in this encounter Social History Tobacco [...] Date Recorded PHQ2 TOTAL SCORE 0 06/10/2023 [facility] - [...] as of this encounter Progress Notes * Kavita Oneill MD - 07/27/2024 12:00 PM CDT ANESTHESIA POSTOP EVALUATION NOTE Procedure: RIGHT SHOULDER INCISION AND DEBRIDEMENT (Right) Gay Canales is a 33 year old female Patient Vitals for the past 6 hrs: BP Temp Pulse Resp SpO2 Pain Rating Score #1 Pain Scale/Observation 07/27/24 1018 107/61 98.3 ??F (36.8 ??C) 73 25 99 % -- B 07/27/24 1020 107/61 -- 73 25 99 % -- -- 07/27/24 1025 98/58 -- 73 10 93 % -- -- 07/27/24 1030 101/61 -- 74 15 90 % -- B 07/27/24 1042 109/58 -- 72 14 98 % -- -- 07/27/24 1045 109/63 -- 73 13 99 % -- B 07/27/24 1100 102/60 -- 72 12 98 % -- -- 07/27/24 1115 100/57 -- 72 10 97 % -- -- 07/27/24 1120 99/57 -- 72 14 98 % -- B 07/27/24 1130 95/60 -- 72 16 98 % -- -- 07/27/24 1132 95/60 -- 73 10 97 % -- -- 07/27/24 1145 101/59 -- 73 12 97 % -- -- 07/27/24 1155 -- -- -- -- -- 5 N 07/27/24 1200 100/61 -- 72 21 97 % -- B 07/27/24 1205 -- -- -- -- -- 4 F;B 07/27/24 1210 102/59 97.8 ??F (36.6 ??C) 73 18 97 % -- B Anesthesia Type: general ETT Pre-op Diagnosis Codes: * Pyogenic arthritis of right shoulder region, due to unspecified organism (HCC) [M00.9] Mental Status: awake Respiratory Function: natural Cardiac Function: stable Postop Pain: adequate Postop Hydration: adequate Postop Nausea: none Assessment: no apparent anesthetic complications Patient Disposition: Release from Anesthesia Care NOTABLE EVENTS: No notable events documented. * Kavita Oneill MD - 07/26/2024 4:02 PM CDT ANESTHESIA PREOPERATIVE EVALUATION NOTE Procedure: RIGHT SHOULDER INCISION AND DEBRIDEMENT (Right) Vitals: Patient Vitals for the past 6 hrs: BP Temp Pulse Resp SpO2 Pain Rating Score #1 07/26/24 1553 -- -- -- -- -- 07/26/24 1515 109/61 99.7 ??F (37.6 ??C) 82 20 92 % -- 07/26/24 1247 -- -- -- -- -- 07/26/24 1203 -- -- -- -- 92 % -- 07/26/24 1202 -- -- -- -- -- 07/26/24 1101 -- -- -- -- 97 % -- LMP: Patient's last menstrual period was 05/11/2024 (exact date). OB Status: Having periods ANESTHESIA PRE-EVALUATION NOTE History of Present Illness: Gay Canales is a 33 yo F with septic shoulder joint who presents for right shoulder I&D. PMHx: HTN T2DM ESRD on HD TTS hx of RUE DVT Anemia PVD Blindness s/p L AKA HFpEF. Previous Airway Management: ETT Placed: ETT Size: 7.5 Blade Type: MAC Blade Size: 3 GradeGrade: 1 Mask Airway: Easy Physical Exam: Orientation X3 Airway/Mallampati Score: III (Poor effort) Mouth Opening Distance: 3 fingerwidths Neck ROM: full TM Distance: < 3 FB Teeth: normal Heart: normal - S1 S2 Lungs: clear to ausculation bilaterally Abdomen Exam: normal Review of Systems: History of anesthetic complications: No Sleep Apnea Risk: Yes, Observed apnea while asleep Malignant Hyperthermia: No GERD: No Poor Exercise Tolerance: No Recent Chest Pain: No Shortness of Breath: No AICD/Pacemaker: No Renal Disease: Yes, patient on regularly scheduled dialysis Diagnostic Tests: ECG(s) reviewed: Yes (Normal, no arrythmia or evidence of infarct) Echo(s) reviewed: Yes (Included in note). Lab(s) reviewed: Yes (Significant for ESRD on dialysis; stably low Hgb). Inpatient PAT evaluation start: T Wt Readings from Last 3 Encounters: 07/26/24 114.2 kg (251 lb 11.2 oz) 05/24/24 93.4 kg (205 lb 14.6 oz) 02/26/24 98.9 kg (218 lb) Temp Readings from Last 3 Encounters: 07/26/24 99.7 ??F (37.6 ??C) (Oral) 06/03/24 98.6 ??F (37 ??C) (Oral) 03/02/24 97.8 ??F (36.6 ??C) (Oral) BP Readings from Last 3 Encounters: 07/26/24 109/61 06/03/24 125/79 03/02/24 111/67 Pulse Readings from Last 3 Encounters: 07/26/24 82 06/03/24 92 03/02/24 78 I. Perioperative Cardiac Risk Index Stratification based on 2014 ACC/AHA Guidelines for patients undergoing noncardiac surgery Is the surgery high-risk? NO 2. History of ischemic heart disease? NO If yes then paste summary of most recent LHC / stress tests here: 3. History of CHF? no If yes then paste summary of most recent echo: Echocardiogram from 05/21/2023 Left Ventricle: Left ventricle size is normal. EDV Index BP is 52.5 mL/m2. ESV Index BP is 13.9 mL/m2. Mildly increased wall thickness. LVPWd is 1.34 cm. Mildly increased ventricular mass. Findings consistent with mild concentric hypertrophy. Normal systolic function with a visually estimated EF of70 - 75%. EF by 2D Power biplane is 74%. Normal wall motion. Grade II diastolic dysfunction with elevated left atrial pressure. Elevated mean left atrial pressure. Tissue Doppler velocity is reduced. MV peak E velocity is 125.98 cm/s. MV e' lateral velocity is 5.925 cm/s. MV e' septal velocity is4.636 cm/s. Average E/e' ratio 24.2. Pericardium: Small circumferential pericardial effusion present. Pericardial effusion is echolucent. No indication of cardiac tamponade. Evidence includes normal LV size, no septal bounce, no respiratory chamber variation. Right ventricle size is normal. Normal wall motion. Normal systolic function. Fractional area change (FAC) is 51.00%. Left pleural effusion. Trace regurgitation. sPAP is 38.0 mmHg. RVSP is 38.0 mmHg. RAP is 15.0 mmHg. Mean PA pressure of 30mmHg. PVR < 2 Wood units. No stenosis. TV mean gradient is 3 mmHg. TV area is 5.0 cm2. Trace regurgitation. No stenosis. MV mean gradient is 3 mmHg. MV area by planimetry is 3.71 cm2 4. History of cerebrovascular disease? Prior TIA or stroke no If yes then paste summary of most any relevant neurovascular imaging (head and neck CTA, MRI / MRA,carotid duplex) here: 5. Insulin-dependent Diabetes? NO A1c: Recent Labs Component Name 05/25/24 0643 02/23/24 0737 04/27/23 0730 HGBA1C 6.2* 6.5* 6.7* EAG 131 140 146 6. Preoperative creatinine > 2 mg/dl? yes HD? yes Recent Labs Component Name 07/26/24 0850 07/25/24 [...] = values in this interval not displayed. Patient Lines/Drains/Airways Status Active Dialysis Access None Date 07/26/24699 - 07/27/2459 Shift [id number] 5651-0353 9056-9499 24 Hour Total INTAKE P.O. 100 300 400 Shift Total 100 300 400 OUTPUT Shift Total NET 100 300 400 Total RCRI / MACE score 1 Point >= 0.9% II. METs > 4? unknown 4 METs = Can walk up a flight of steps or a hill or walk on level ground at 3 mph IV. CXR No results found. V. Most recent EKG (paste here if not autoimported). EKG needed within 6 months if: (ASA >= 3 ORany RCRI) AND non-low risk procedure Results for orders placed or performed during the hospital encounter of 05/17/23 EKG 12-LEAD Result Value Ref Range Ventricular Rate 90 BPM Atrial Rate 90 BPM P-R Interval 160 ms QRS Duration ms 80 ms Q-T Interval ms 370 ms QTC Calculation (Bezet) 452 ms Calculated P [place] 43 degrees Calculated R [place] 7 degrees Calculated T [place] 26 degrees Interpretation EKG NORMAL SINUS RHYTHM NORMAL ECG Confirmed by ANDRE WHITTAKER MD ([id number]) on 05/18/2023 11:42:30 AM . CIEDs Does patient have a CIED (cardiovascular implantable electronic device eg: PM, AICD)? no MUST call [facility] at [phone] to discuss plan [place] Information needed (oenologist, mode, indication for CIED, battery life, magnet function): VII. Anticoagulants Is patient receiving chronic antiplatelet/ anticoagulant medications (with exception of DVT prophylaxis and or Aspirin) ? What is periop plan ? YES - plan is to stop heparin midnight prior VIII. T&S available within past 72 hrs (if needed)? no Recent Labs Component Name 12/03/22 0410 12/03/22 0242 ABORH A POS A POS ABSCG - NEG If patient is anemic and may require blood then make sure T&S will not (q72 hrs) and mayneed to order Xmatch for DOS. IX. EDD score Total EDD Risk Score: 3 EDD score: Total EDD Risk Score: 3 X. Known or suspected difficult airway - only then complete previous airway management section in preop section above XI. Frailty screen: No data recorded XII. Suboxone (Buprenorphine / Naloxone) therapy? N/A GLP-1 Agonists No XIII. Consults: NO Copy and paste relevant results. XIV. Additional testing needed within 3 months prior to DOS (if possible, else on DOS) - CBC w/o diff if ASA >= 3 OR expected blood loss >250 OR previously abnormal - BMP if ASA >= 3 AND non low- risk procedure / previously abnormal - CMP (instead of BMP) for patient with chronic liver disease or previously abnormal -PT/ PTT/ INR if recent use of 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 OR scheduled for major vascular procedures including aortic and carotid stents / aneurysm coiling / TIPS Recent Labs Component Name 07/26/24 0850 12/03/22 0242 12/02/22 1955 WBC 11.9* - 42.0* HGB 9.7* - 8.9* HCT 31.6* - 28.3* PLTCOUNT 283 - 556* PLATELET - - Occasional* - = values in this interval not displayed. Additional testing needed on DOS : - EPOC blood glucose for patients w/ DM - EPOC whole blood K+ for patient with ESRD or poorly controlled K+ Labs or in need of review on DOS: none Summary: Gay Canales is a 33 year old female presenting for RIGHT SHOULDER INCISION AND DEBRIDEMENT (Right). They have an ASA score of 3 and a RCRI / MACE score of 1 Point >= 0.9% They ARE OPTIMIZED - PAT EVALUATION COMPLETE Mohit Escalante DO 07/26/2024 4:14 PM for this procedure. Preoperative plan was not discussed w/ PAT attending (date and name). (please note that ALL RESIDENT charts must be discussed with the PAT director or designated person) XXI. LDAs Other Wound Plantar;Right (Active) Date/Time: 07/25/24 041 Present on admission?: Yes Orientation: Plantar;Right Number of days: 1 Other Wound Anterior;Lower;Right Leg (Active) Date/Time: 07/25/241999 Present on admission?: Yes Orientation: Anterior;Lower;Right Location: Leg Number of days: 0 Other Wound Lower;Right Flank (Active) Date/Time: 07/25/24410 Present on admission?: Yes Orientation: Lower;Right Location: Flank Number of days: 1 Hemodialysis Tunneled Catheter Internal Jugular (Active) Placement Date/Time: 02/25/24 1059 Placed by: Dr Palacios Dialysis Tunneled Catheter Location: Internal Jugular Hemodialysis Cath Orientation: Right Model: perm catheter Number of days: 152 PAT evaluation end: ANESTHESIA PLAN ASA Score: 3 NPO Status: No solids since midnight and No liquids within 2 hours Anesthesia Plan: general Planned Induction: intravenous Planned Postop Destination: PACU Anesthetic plan was discussed with: patient Anesthetic Plan discussion was: Consented The patient's procedural Anesthetic Plan was discussed with the resident. Overall additional findings/comments: Patient expressed understanding of potential risks of generalanesthesia including but not limited to corneal abrasion, visual impairment or visual loss, mouth injury, dental damage, sore throat, hoarseness, esophageal injury, awareness under anesthesia, nerve injury due to positioning, aspiration, pneumonia, stroke, cardiac event, adverse drug reactions and . Patient seen and examined by KAVITA ONEILL MD prior to transport to the room. H&P updated. Anesthesia plan discussed with patient, who is in agreement. Questions solicited and answered. Okay to proceed . BMI, Height, Weight Tobacco History Estimated body mass index is 39.42 kg/m?? as calculated from the following: Height as of this encounter: 1.702 m (5' 7 ). Weight as of this encounter: 114.2 kg (251 lb 11.2 oz). Social History Tobacco Use Smoking Status Former Types: Cigarettes Start date: 2010 Smokeless Tobacco Never Tobacco Comments Quit 4-5 months after starting Alcohol History Drug History Social History Substance and Sexual Activity Alcohol Use Not Currently Comment: Occassionally Social History Substance and Sexual Activity Drug Use Not Currently Types: Marijuana Comment: At age 20 for 4-5 months Outpatient Medications: Inpatient Medications: Outpatient Medications Marked as Taking for the 07/25/24 encounter (Hospital Encounter) Medication Sig Last Dose acetaminophen Take 1 (one) tablet by mouth every 4 hours Maximum allowable Acetaminophen amount = 4Grams (4000 mg) / 24 hours. Past Week amLODIPine Take 1 (one) tablet by mouth once daily 07/25/2024 OneTouch Verio USE ONE STRIP TO TEST BLOOD SUGAR FOUR TIMES DAILY Past Week carvedilol Take 1 (one) tablet by mouth 2 times daily with morning and evening meal 07/25/2024 FeroSul Take 1 (one) tablet by mouth daily with breakfast Past Week furosemide Take 1 (one) tablet by mouth every Friday, Friday & Friday Past Week gabapentin Take 1 (one) capsule by mouth 3 times daily 07/25/2024 lisinopril Take 1 (one) tablet by mouth once daily 07/25/2024 melatonin Take 1 (one) tablet by mouth nightly as needed for Insomnia Past Week nystatin Apply to affected area 3 times daily Past Week oxyCODONE (immediate release) Take 1 (one) tablet by mouth every 4 hours as needed Past Week Current Facility-Administered Medications Medication Dose Last Admin 0.9% NaCl 3 mL 3 mL at 07/26/24 1234 And 0.9% NaCl 1-10 mL acetaminophen 650 mg 650 mg at 07/25/24 2354 azithromycin (Zithromax) IV 500 mg carvedilol 12.5 mg 12.5 mg at 07/26/24 0841 cefepime 1 g dextrose IV for hypoglycemia 12.5 g Or dextrose IV for hypoglycemia 25 g Or glucagon 1 mg [START ON 07/27/2024] epoetin 5,000 Units ferrous sulfate 325 mg 325 mg at 07/26/24 0841 furosemide 40 mg gabapentin 300 mg glucose (Diabetic Use) gel heparin 1,000 Units heparin 5,000 Units 5,000 Units at 07/26/24 1548 HYDROmorphone 0.4 mg 0.4 mg at 07/26/24 1233 lisinopril 20 mg 20 mg at 07/26/24 0842 oxyCODONE (immediate release) 5 mg 5 mg at 07/26/24 1553 renal vitamin 1 tablet 1 tablet at 07/26/24 0842 sevelamer carbonate 800 mg 800 mg at 07/26/24 1202 vancomycin (VANCOCIN) IV dose per pharmacy Allergies: No Known Allergies Relevant Problems Problem List: Patient Active Problem List Diagnosis Date Noted Acute pain of right shoulder 07/26/2024 Priority: Not Prioritized Pyogenic arthritis of right shoulder region, due to unspecified organism ([facility]) 07/25/2024 Priority: Not Prioritized Pneumonia of both lungs due to infectious organism, unspecified part of lung 07/25/2024 Priority: Not Prioritized Osteomyelitis of left shoulder, unspecified type ([facility]) 05/15/2024 Priority: Not Prioritized Hypoalbuminemia 02/28/2024 Priority: Not Prioritized ESRD (end stage renal disease) ([facility]) 02/23/2024 Priority: Not Prioritized 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, with long-term current use of insulin ([facility]) 02/23/2024 Priority: Not Prioritized Insomnia 02/23/2024 Priority: Not Prioritized Abscess of left shoulder 02/23/2024 Priority: Not Prioritized Leukocytosis 02/23/2024 Priority: Not Prioritized 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 ([facility]) 02/22/2024 Priority: Not Prioritized Thrombophlebitis 05/21/2023 Priority: Not Prioritized Acute on chronic congestive heart failure, unspecified heart failure type ([facility]) 05/18/2023 Priority: Not Prioritized Swelling of right upper extremity 05/18/2023 Priority: Not Prioritized Anemia 04/27/2023 Priority: Not Prioritized 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 ([facility]) 04/24/2023 Priority: Not Prioritized S/P AKA (above knee amputation) unilateral, left ([facility]) 12/19/2022 Priority: Not Prioritized MRSA bacteremia 12/04/2022 Priority: Not Prioritized Left foot infection 12/02/2022 Priority: Not Prioritized Hypoxia 12/02/2022 Priority: Not Prioritized Essential hypertension 12/02/2022 Priority: Not Prioritized Swelling of left foot 12/02/2022 Priority: Not Prioritized Severe recurrent major 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 psychotic features ([facility]) 08/22/2022 Priority: Not Prioritized PTSD (post-traumatic stress disorder) 08/22/2022 Priority: Not Prioritized CHF (congestive heart failure) ([facility]) 08/22/2022 Priority: Not Prioritized Intentional overdose of drug in tablet form ([facility]) 08/21/2022 Priority: Not Prioritized Type 2 diabetes mellitus with diabetic polyneuropathy ([facility]) 04/23/2010 Medical History: Past Medical History: Diagnosis Date Essential (primary) hypertension Heart failure ([facility]) Type 2 diabetes mellitus without complications ([facility]) Surgical History: Past Surgical History: Procedure Laterality Date LEG AMPUTATION ABOVE KNEE Left 12/05/2022 Left; AMPUTATION ABOVE LEFT KNEE Leg Amputation, Below Knee Left 12/02/2022 Left; LEFT 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 Having periods OB History No obstetric history on file. Covid Vaccine: Lab Results: Recent Labs Base Name 07/26/24 1223 [id number] 150* SPECIMENTYPE Cap Fingerstick Recent Labs Component Name 07/26/24 0850 WBC 11.9* RBC 3.38* HCT 31.6* HGB 9.7* PLTCOUNT 283 MCV 93.5 MCH 28.7 MCHC 30.7* MPV 9.6 Recent Labs Component Name 07/26/24 0850 POTASSIUM 5.3* CALCIUM 8.1* CO2 14* GLUCOSE 161* BUN 38* CREATININE 8.40* Recent Labs Component Name 07/26/24 0850 PHOS 7.4* Recent Labs Component Name 07/25/24 2316 PTT 30.3 PT 15.3* INR 1.2 Recent Labs Component Name 07/26/24 0850 BNP 380* No results found for requested labs within last 120 days. Recent Labs Result Component Current Result Alkaline Phosphatase 170 (H) (05/24/2024) ALT 25 (05/24/2024) Anion Gap 11 (07/26/2024) AST 14 (05/24/2024) eGFR by CKD-EPI 6 (L) (07/26/2024) documented in this encounter Procedure Notes * Lee Ayala MD - 07/27/2024 8:25 AM CDTAssociated Order(s): ETT Placement Endotracheal Tube Placement: Patient Location: OR. Intubation Event Date/Time: 07/27/2024 7:45 AM Procedure: intubation (02034) Procedure Section: Sedation: under general anesthesia. Indications for Airway Management: anesthesia Procedure pretreatments used? No Induction: standard IV Patient Position: sniffing Mask Ventilation: easy with oral airway. Blade [...] monitor and chest auscultation Tube secured with: adhesive tape. Dentition unchanged? Yes Difficult Airway? No. Procedure Start Time: 07/27/2024 7:45 AM. Staff Section Anesthesia Provider: Lee Ayala MD, Performed the procedure Provider #1: Kavita Oneill MD. documented in this encounter Miscellaneous Notes * Addendum Note - Lee Ayala MD - 07/27/2024 3:48 PM CDT Addendum created 07/27/24 1548 by Lee Ayala MD Intraprocedure Meds edited * Anesthesia Transfer of Care - Lexus Paniagua DO - 07/27/2024 10:22 AM CDT ANESTHESIA TRANSFER OF CARE NOTE Today's Date: 07/27/2024 Date of : 1990 Patient: Gay Canales Procedure(s): RIGHT SHOULDER INCISION AND DEBRIDEMENT Surgeon(s): Primary: Tao Chapman MD Resident - Assisting: Charlie Sutherland MD Preop Diagnosis: Pre-op Diagnois: * Pyogenic arthritis of right shoulder region, due to unspecified organism (HCC) [M00.9] Pre-op Meds (From admission, onward) Start Stop Status Route Frequency Ordered 07/25/242158 0.9% NaCl injection 1-10 mL See Hyperspace for full Linked Orders Report. -- Dispensed IK PRN 07/25/24221907/25/242229 0.9% NaCl injection 3 mL See Hyperspace for full Linked Orders Report. -- Dispensed IK EVERY 8 HOURS 07/25/24221907/25/24 2225 acetaminophen (Tylenol) tablet 650 mg -- Dispensed PO EVERY 6 HOURS PRN 07/25/24222707/27/24 0844 albuterol-ipratropium (Duo-Neb) nebulizer solution 3 mL -- Verified IN POST-OP MULTIPLE 07/27/24 0844 07/26/24 1800 azithromycin (Zithromax) 500 mg in 0.9% NaCl IV 250 mL IVPB 07/28/24 1759 Dispensed IV EVERY 24 HOURS 07/25/24 2254 07/26/24 0800 carvedilol (Coreg) tablet 12.5 mg Note to Pharmacy: OP sig: Take 1 (one) tablet by mouth 2 times daily with morning and evening meal -- Dispensed PO 2 TIMES DAILY WITH MEALS 07/26/24 0005 07/25/24 1700 cefepime (Maxipime) 1,000 mg in 0.9% NaCl IV 50 mL IVPB -- Dispensed IV EVERY 24 HOURS 07/25/24 2300 07/27/24 0844 dexAMETHasone (Decadron) injection 8 mg -- Verified IV ONCE PRN 07/27/24 0844 07/25/24 2246 dextrose 10 % IV bolus See Hyperspace for full Linked Orders Report. -- Verified IV PRN 07/25/24 2246 07/25/24 2246 dextrose 10 % IV bolus See Hyperspace for full Linked Orders Report. -- Verified IV PRN 07/25/24 2246 07/27/24 0844 diphenhydrAMINE (Benadryl) injection 25 mg -- Verified IV POST-OP MULTIPLE 07/27/24 0844 07/27/24 1700 epoetin carlin-EPBX (Retacrit) 5,000 unit injection -- Verified IV DIALYSIS EVERY FRI, FRI & Fri07/26/24 1423 07/27/24 0844 fentaNYL (PF) (Sublimaze) injection 25 mcg -- Verified IV EVERY 10 MIN PRN 07/27/24 0844 07/27/24 0844 fentaNYL (PF) (Sublimaze) injection 50 mcg -- Verified IV EVERY 10 MIN PRN 07/27/24 0844 07/26/24 0800 ferrous sulfate tablet 325 mg -- Dispensed PO DAILY WITH BREAKFAST 07/26/24 0005 07/26/24 1700 furosemide (Lasix) tablet 40 mg Note to Pharmacy: OP sig: Take 1 (one) tablet by mouth every Friday, Friday & Friday -- Dispensed PO EVERY FRI, FRI AND Fri07/26/24 0005 07/26/24 1700 gabapentin (Neurontin) capsule 300 mg Note to Pharmacy: OP sig: Take 1 (one) capsule by mouth 3 times daily -- Dispensed PO EVERY FRI, FRI AND Fri07/26/24 0005 07/25/242245 glucagon (Glucagen) injection [facility] -- Verified SC PRN 07/25/24224507/25/24 224 glucose (Diabetic Use) oral gel -- Verified PO PRN 07/25/24 2246 07/26/24 1423 heparin injection 1,000 Units -- Verified IK DIALYSIS PRN 07/26/24 1423 07/25/24 2300 heparin injection 5,000 Units -- Dispensed SC EVERY 8 HOURS 07/25/246 07/27/24 0844 hydrALAZINE (Apresoline) injection 5 mg -- Verified IV POST-OP MULTIPLE 07/27/24 0844 07/25/242225 HYDROmorphone (Dilaudid) injection 0.4 mg -- Dispensed IV EVERY 4 HOURS PRN 07/25/248 07/27/24 0844 HYDROmorphone (Dilaudid) injection 0.5 mg -- Verified IV EVERY 10 MIN PRN 07/27/24 0844 07/27/24 0844 labetalol (Normodyne; Trandate) injection 5 mg -- Verified IV POST-OP MULTIPLE 07/27/24 0844 07/26/24 0900 lisinopril (Prinivil; Zestril) tablet 20 mg Note to Pharmacy: OP sig: Take 1 (one) tablet by mouth once daily -- Dispensed PO DAILY 07/26/24 0005 07/27/24 08 naloxone (Narcan) injection 0.04 mg -- Verified IV POST-OP MULTIPLE 07/27/24 0844 07/27/24 0844 ondansetron (Zofran) injection 4 mg -- Verified IV ONCE PRN 07/27/24 0844 07/25/242225 oxyCODONE (immediate release) (Roxicodone) tablet 5 mg -- Dispensed PO EVERY 4 HOURS PRN 07/25/24222707/27/24 0844 prochlorperazine (Compazine) injection 10 mg -- Verified IV ONCE PRN 07/27/24 0844 07/26/24 0900 renal vitamin (Dialyvite) tablet 1 tablet Note to Pharmacy: OP sig: Take 1 (one) tablet by mouth once daily -- Dispensed PO DAILY 07/26/24 0005 07/26/24 0800 sevelamer carbonate (Renvela) tablet 800 mg -- Dispensed PO 3 TIMES DAILY WITH MEALS 07/26/24 0018 07/27/24 0844 throat lozenge 1 lozenge -- Verified PO EVERY 1 HOUR PRN 07/27/24 0844 07/25/24 2245 vancomycin (Vancocin) IV dose per pharmacy -- Verified XX DIRECTED 07/25/24 224 Post-op Diagnosis: * Pyogenic arthritis of right shoulder region, due to unspecified organism (HCC) [M00.9] . No Known Allergies Vitals: Patient Vitals for the past 3 hrs: Pulse 07/27/24 1018 73 Lines, Drains, and Airways Type Details Placement Removal Peripheral IV Date: 07/25/24; Time: 0700; Orientation: Anterior, Right; Location: Forearm; Gauge: 18 G 07/25/24 0700 by Gretchen Jaramillo RN Peripheral IV Date: 07/25/24; Time: 0700; Orientation: Left, Posterior; Location: Forearm; Gauge: 18 G 07/25/24 0700 by Gretchen Jaramillo RN Drain 07/27/24; Tao Chapman MD; 1; Round; Accordian; Anterior, Right; Shoulder; General Anesthesia 07/27/24 0000 by Carolynn Gamez RN ETT Date: 07/27/24; Time: 0745; Placed By: Lee Ayala MD; Vent: easy with oral airway mask; Induction: Standard IV; Blade Type: Video; Blade Size: 3; Laryngoscopy View: Grade 1 (full cords); Intubation Adjuncts: Stylet, Video Laryngoscope; Tube: Endotracheal Tube; Placement: Oral; Tube Type:Cuffed- inflated; Tube Size(mm): 7 MM; Depth of Insertion: 22 CM; Measured From: teeth; Attempts: 1;Cuff Infated: Air; Verified By: Direct visualization, Bilateral breath sounds, Chest Auscultation, CO2 Monitor 07/27/24 0745 by Lee Ayala MD 07/27/24 1012 by Lee Ayala MD Intraprocedure I/O Totals Intake NS (0.9% NaCl) 300.00 mL I.V. 300 mL Total Intake 600 mL Patient Transfer Location: PACU Transport Airway: spontaneous respirations and supplemental O2 Transport Monitoring: heart rate and continuous pulse oximetry Complications: None Comments: Patient transferred to PACU in stable condition. Upon arrival, handoff given to nurse. All questions answered. Patient remains in PACU with stable vital signs. Handoff Given? Yes Checklist or Protocol - The manley handoff elements that must be included in the transfer of care checklist include: 1. Identification of patient. 2. Identification of responsible practitioner (PACU nurse or advanced practitioner). 3. Discussion of pertinent medical history. 4. Discussion of the surgical/procedure course (procedure, reason for surgery, procedure performed). 5. Intraoperative anesthetic management and issue/concerns. 6. Expectations/Plans for the early post-procedure period. 7. Opportunity for questions and acknowledgement of understanding of report from the receiving PACUteam. Lexus Paniagua DO documented in this encounter Plan of Treatment Upcoming Encounters Date Type Department Care Team (Late st Contact Info) Description 11/22/2024 1:30 PM MANAGER PSYCHOLOGY Office Visit [facility] - Infectious Disease [address] [place] [address], [place] [address] Kash Ha MD [address] [place] [address] documented as of this encounter Procedures Procedure Name Priority Date/Time Associated Diagnosis Comments ENDOTRACHEAL TUBE NOTE Routine 07/27/2024 8:25 AM CDT documented in this encounter Results * ETT LINE PERFORMABLE (07/27/2024 8:25 AM CDT) Narrative Lee Ayala MD - 07/27/2024 8:25 AM CDT Lee Ayala MD ? 07/27/2024 ??8:25 AM Endotracheal Tube Placement: ? Patient Location: OR. Intubation Event Date/Time: ??07/27/2024 7:45 AM Procedure: intubation (37926) Procedure Section: ?? Sedation: under general anesthesia. [...] MD. Kavita Oneill MD GENERAL ANESTHESIA ORDERABLES documented in this encounter Visit Diagnoses Not on filedocumented in this encounter Administered Medications Inactive Administered Medications - up to 3 most recent administrations Medication Order MAR Action Action Date Dose Rate Site 0.9% NaCl infusion Intravenous, CONTINUOUS PRN, Starting on Fri07/27/24 at 0740, Until Fri07/27/24 at 1022, Anesthesia Intra-op $ New Bag/Syringe 07/27/2024 7:40 AM CDT ceFAZolin (Ancef) 2,000 mg in 50 mL IVPB Intravenous, PRN, Starting on Fri07/27/24 at 0812, Until Fri07/27/24 at 1022, Anesthesia Intra-op $ Given 07/27/2024 8:12 AM CDT 2 g ePHEDrine 50 MG/ML injection Intravenous, PRN, Starting on Fri07/27/24 at 0809, Until Fri07/27/24 at 1022, Anesthesia Intra-op $ Given 07/27/2024 10:13 AM CDT 10 mg $ Given 07/27/2024 8:09 AM CDT 10 mg $ Given 07/27/2024 7:57 AM CDT 10 mg fentaNYL (PF) (Sublimaze) injection Intravenous, PRN, Starting on Fri07/27/24 at 0741, Until Fri07/27/24 at 1022, Anesthesia Intra-op $ Given 07/27/2024 9:49 AM CDT 25 mcg $ Given 07/27/2024 9:33 AM CDT 25 mcg $ Given 07/27/2024 9:30 AM CDT 25 mcg lidocaine HCl (PF) (Xylocaine MPF) 2 % injection Intravenous, PRN, Starting on Fri07/27/24 at 0742, Until Fri07/27/24 at 1022, Anesthesia Intra-op $ Given 07/27/2024 7:42 AM CDT 80 mg ondansetron (Zofran) injection Intravenous, PRN, Starting on Fri07/27/24 at 0852, Until Fri07/27/24 at 1022, Anesthesia Intra-op $ Given 07/27/2024 8:52 AM CDT 4 mg phenylephrine 100 mcg/mL injection Intravenous, PRN, Starting on Fri07/27/24 at 0750, Until Fri07/27/24 at 1022, Anesthesia Intra-op $ Given 07/27/2024 8:04 AM CDT 200 mcg $ Given 07/27/2024 7:50 AM CDT 200 mcg propofol (Diprivan) injection Intravenous, PRN, Starting on Fri07/27/24 at 0742, Until Fri07/27/24 at 1022, Anesthesia Intra-op $ Given 07/27/2024 7:42 AM CDT 100 mg rocuronium (Zemuron) injection Intravenous, PRN, Starting on Fri07/27/24 at 0743, Until Fri07/27/24 at 1022, Anesthesia Intra-op $ Given 07/27/2024 7:43 AM CDT 50 mg sugammadex (Bridion) injection Intravenous, PRN, Starting on Fri07/27/24 at 0928, Until Fri07/27/24 at 1021, Anesthesia Intra-op $ Given 07/27/2024 9:28 AM CDT 200 mg vasopressin (Vasostrict) 40 Units in dextrose 5 % 40 mL infusion Intravenous, CONTINUOUS PRN, Starting on Fri07/27/24 at 0812, Until Fri07/27/24 at 1022, Anesthesia Intra-op $ Bolus New Bag 07/27/2024 9:39 AM CDT 1 Units $ Bolus New Bag 07/27/2024 9:12 AM CDT 1 Units $ Bolus New Bag 07/27/2024 8:45 AM CDT 1 Units documented in this encounter Additional Health Concerns Infection Onset Date Last Indicated Resolved Time 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
--- OUTSIDE RECORDS SUMMARY | 2024-11-17 03:00 | XMS_ITS | Encounter Summary ---
Author Organization [facility] Health Address [address] [place] [address] Care Team Providers Care Armored Car Messenger Name Role Phone Cherise Patrick PA-C Primary Care Provider Encounter Details Date Type Department Care Team (Latest Contact Info) Description 07/26/2024 Travel Social History Tobacco Use Types Packs/Day [...] Recorded PHQ2 TOTAL SCORE 0 06/10/2023 [facility] [place] of Occupat ional Health - Occupational Stress [...] st Contact Info) Description 11/22/2024 1:30 PM STRAPPER AND BUFFER Office Visit [facility] - Infectious Disease [address], [place] [address] Kash Ha MD [address] [place] [address] documented as of this encounter Visit Diagnoses Not on filedocumented in this encounter Additional Health Concerns Infection Onset Date Last Indicated Resolved Time 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
--- OUTSIDE RECORDS SUMMARY | 2024-11-17 03:01 | XMS_ITS | Encounter Summary ---
Author Organization [facility] Address [address] [place] [address] Care Team Providers Care Seam Sewer Name Role Phone Cherise Patrick PA-C Primary Care Provider Reason for Visit * Reason Onset Date Comments Follow-up 04/02/2024 Notification to [facility]: Address: [address] [place] [address], phone [phone]. Encounter Details Date Type Department Care Team (Late st Contact Info) Description 04/02/2024 Telephone [facility] - Infectious Disease [address] [place] [phone] Roxanna Roth PA-C [address] [place] [phone] Follow-up (Notification to [facility]: Address: [address] [place] [address], phone [phone]./) Social History Tobacco Use Types Packs/Day Years Used Date Smoking Tobacco: Former Cigarettes S tarted: 2010 Smokeless Tobacco: Never Comments:Quit 4-5 months aft er starting Alcohol Use Standard Drinks/Week Comments Not Currently 0 (1 standard drink = 0.6 oz pur e alcohol) Occassionally AUDIT-C Answer Date Recorded Q1: How often do you have a drink containing alcohol? Never 02/23/2024 Q2: How many drinks containi ng alcohol do you have on a typical day when you are drinking? Patient does not drink Q3: How often do you have si x or more drinks on one occasion? Never 02/23/2024 Overall Financial Resource Strain (CARDIA) Answe r Date Recorded How hard is it for you to pa y for the very basics like food, housing, medical care, and heating? Not hard at all 03/02/2024 PHQ-2 Answer Date Recorded PHQ2 TOTAL SCORE 0 06/10/2023 [facility] of Occupat ional Health - Occupational Stress Questionnaire Answer Date Recorded Do you feel stress - tense, restless, nervous, or anxious, or unable to sleep at night because your mind is troubled all the time - these days? Not at all 03/02/2024 Hunger Vital Sign Answer Date Recorded Within the past 12 months, y ou worried that your food would run out before you got the money to buy more. Never true 03/02/20 24 Within the past 12 months, t he food you bought just didn't last and you didn't have money to get more. Never true 03/02/2024 PRAPARE - Transportation Answer Date Re corded In the past 12 months, has l ack of transportation kept you from medical appointments or from getting medications? No 02/03 In the past 12 months, has l ack of transportation kept you from meetings, work, or from getting things needed for daily living? No 03/02/2024 Housing Stability Vital Sign Answer Ibrahima e Recorded In the last 12 months, was t here a time when you were not able to pay the mortgage or rent on time? No 03/02/2024 In the last 12 months, how many places have you lived? 1 03/02/2024 In the last 12 months, was t here a time when you did not have a steady place to sleep or slept in a usp (including now)? No 03/02/2024 Sex and Gender Information Value Date Recorded Sex Assigned at Not on file Gender Identity Not on file Sexual Orientation Not on file documented as of this encounter Functional Status Functional Status Response Date of Assess ment Is person deaf or have serious hearing difficult y? No 02/23/2024 Is person blind or have serious difficulty seein g? Yes 02/23/2024 Does person have serious dif ficulty walking/climbing stairs? Yes 02/23/2024 Does person have difficulty dressing/bathing? Ye s 02/23/2024 Does person have difficulty doing errands alone? Yes 02/23/2024 Cognitive Status Response Date of Assessm ent Does person have difficulty concentrating/remembering/making decisions? No 02/23/2024 documented as of this encounter Miscellaneous Notes * Telephone Encounter - Shu House RN - 04/02/2024 2:34 PM CDT Telephone call with surety bond agent at [facility]: Amie Liz RN Per ALEN Roth, I notified Nurse Amie to bring the patient back to ER for evaluation if patient should have any fevers, chills, loss of appetite, joint pains, back pains, or changes from baseline due to no treatment with IV antibiotics at discharge. Nurse husam knowledged notification. Nurse Amie states: the patient has been on course of Linezolid 600 mg PO every 12 hours. The courseis to be completed on 04/06/2024. She also states that patient does not show afore mentioned symptomsor other symptoms of infection. She stated that administration of Vancomycin was to be done at the dialysis center as per her information. Nurse Holloway stated that the laboratory results scheduled to be drawn on Thursday 04/05 will be faxed to [facility] fax number. documented in this encounter Plan of Treatment Upcoming Encounters Date Type Department Care Team (Late st Contact Info) Description 11/22/2024 1:30 PM LEAD CASE MANAGER Office Visit [facility] - Infectious Disease [address] [place] [address], [facility] [place] [phone] Kash Ha MD [address] [place] [address] documented as of this encounter Visit Diagnoses Not on filedocumented in this encounter Additional Health Concerns Infection Onset Date Last Indicated Resolved Time MRSA 02/22/2024 02/22/202405/24/2024 7:14 AM CDT VRE 02/24/2024 02/24/2024 05/24/2024 7:16 AM CDT documented as of this encounter Care Teams Seam Sewer Relationship Specialty Start Date End Date Cherise Patrick PA-C [address] [place] [phone] PCP - General 02/23/24 documented as of this encounter
--- OUTSIDE RECORDS SUMMARY | 2024-11-17 03:01 | XMS_ITS | Encounter Summary ---
Author Organization [facility] Health Address [address] [place] [address] Care Team Providers Care Accounting Manager Cpa Name Role Phone Cherise Patrick PA-C Primary Care Provider Encounter Details Date Type Department Care Team (Latest Contact Info) Description 05/23/2024 Travel Social History Tobacco Use Types Packs/Day [...] Date Recorded PHQ2 TOTAL SCORE 0 06/10/2023 [facility] of Occupat ional Health - Occupational Stress [...] slept in a jail (including now)? No 05/23/2024 Sex and Gender [...] No 02/23/2024 documented as of this encounter Plan of Treatment Upcoming Encounters Date Type Department Care Team (Late st Contact Info) Description 11/22/2024 1:30 PM SMOKING PIPE REPAIRER Office Visit [facility] - Infectious Disease [address] [facility], [place] [address] Kash Ha MD [address] [place] [address] documented as of this encounter Visit Diagnoses Not on filedocumented in this encounter Additional Health Concerns Infection Onset Date Last Indicated Resolved Time MRSA 02/22/2024 02/22/2024 05/24/2024 7:14 AM CDT VRE 02/24/2024 02/24/2024 05/24/2024 7:16 AM CDT documented as of this encounter Care Teams Accounting Manager Cpa Relationship Specialty Start Date End Date Cherise Patrick PA-C [address] [place] [phone] PCP - General 02/23/24 documented as of this encounter
--- OUTSIDE RECORDS SUMMARY | 2024-11-17 03:01 | XMS_ITS | Encounter Summary ---
Author Organization [facility] Health Address [address] [place] [address] Care Team Providers Care Technical Architect Name Role Phone Unavailable Primary Care Provider Unavailabl e Encounter Details Date Type Department Care Team (Latest Contact Info) Description 06/10/2023 10:35 AM CDT - 06/10/2023 11:59 PM CDT Hospital Encounter [facility] [address] [place] [id number] Discharge Disposition: Home or Self Care Social [...] you have a drink containing alcohol? Never 05/18/2023 Q2: How many drinks containi ng alcohol do you have on a typical day when you are drinking? Patient does not drink Q3: How often do you have si x or more drinks on one occasion? Never 05/18/2023 Overall Financial Resource Strain (CARDIA) Answe r Date Recorded How hard is it for you to pa y for the very basics like food, housing, medical care, and heating? Not hard at all 05/18/2023 PHQ-2 Answer Date Recorded PHQ2 TOTAL SCORE 0 06/10/2023 [place] [facility] - Occupational Stress Questionnaire Answer Date Recorded Do you feel stress - tense, restless, nervous, or anxious, or unable to sleep at night because your mind is troubled all the time - these days? Not at all 05/18/2023 Hunger Vital Sign Answer Date Recorded Within the past 12 months, y ou worried that your food would run out before you got the money to buy more. Never true 05/18/20 23 Within the past 12 months, t he food you bought just didn't last and you didn't have money to get more. Never true 05/18/2023 PRAPARE - Transportation Answer Date Re corded In the past 12 months, has l ack of transportation kept you from medical appointments or from getting medications? No 05/03 In the past 12 months, has l ack of transportation kept you from meetings, work, or from getting things needed for daily living? No 05/18/2023 Housing Stability Vital Sign Answer Ibrahima e Recorded In the last 12 months, was t here a time when you were not able to pay the mortgage or rent on time? No 05/18/2023 In the last 12 months, how many places have you lived? 1 05/18/2023 In the last 12 months, was t here a time when you did not have a steady place to sleep or slept in a nursing home (including now)? No 05/18/2023 Sex and Gender Information Value Date Recorded Sex Assigned at Not on file Gender Identity Not on file Sexual Orientation Not on file documented as of this encounter Functional Status Functional Status Response Date of Assess ment Is person deaf or have serious hearing difficult y? No 05/18/2023 Is person blind or have serious difficulty seein g? Yes 05/18/2023 Does person have serious dif ficulty walking/climbing stairs? Yes 05/18/2023 Does person have difficulty dressing/bathing? Ye s 05/18/2023 Does person have difficulty doing errands alone? Yes 05/18/2023 Cognitive Status Response Date of Assessm ent Does person have difficulty concentrating/remembering/making decisions? No 05/18/2023 documented as of this encounter Medications at [...] [facility]USTYN WHEN DELIVERING [id number] 1 kit 12/12/2022 Lancets (ONETOUCH DELICA PLUS 33G EXTRA FINE LANCET)Indications:H yperglycemia USE ONE LANCET TO PRICK FINGER FOUR TIMES DAILY FOR BLOOD GLUCOSE TESTING 100 Each 12/12/2022 apixaban (Eliquis) 5 MG tablet Take 2 (two) tablets by mouth 2 times daily for 2 days 0 05/23/2023 03/02/2024 apixaban (Eliquis) 5 MG tablet Take 1 (one) tablet by mouth 2 times daily for 90 days 0 05/26/2023 03/02/2024 carvedilol (Coreg) 12.5 MG tablet Take 1 [...] capsule by mouth 3 times daily 12/27/2022 08/09/2024 insulin lispro (HumaLOG;ADMelog) 100 UNIT/ML pen Inject 0 (zero) Units to 6 (six) Units subcutaneously 3 times daily with meals 05/09/2023 08/09/2024 lisinopril (Prinivil; Zestril) 10 MG tablet Take 1 (one) tablet by mouth once daily 05/24/2023 03/02/2024 melatonin 3 MG tablet Take 1 (one) tablet by mouth nightly as needed for Insomnia 05/09/2023 09/01/2024 nystatin (Mycostatin) 481577 UNIT/GM powder Apply to affected area 3 times daily 12/12/2022 08/09/2024 potassium chloride ER (Klor-Con M) 20 MEQ tablet Take 1 (one) tablet by mouth daily with breakfast 12/12/2022 03/02/2024 documented as of this encounter Plan of Treatment Upcoming Encounters Date Type Department Care Team (Late st Contact Info) Description 11/22/2024 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 Office Visit [facility] - Infectious Disease [address] [place] [address] Kash Ha MD [address] [place] [address] documented as of this encounter Procedures Procedure Name Priority Date/Time Associated Diagnosis Comments CBC W AUTO DIFFERENTIAL Routine 06/10/2023 10:43 AM CDT Osteomyelitis of right foot, unspecified type (HCC) C-REACTIVE PROTEIN Routine 06/10/2023 9: 39 AM CDT Osteomyelitis of right foot, unspecified type (HCC) ERYTHROCYTE SEDIMENTATION RATE Routine 06/10/2023 9:39 AM CDT Osteomyelitis of right foot, unspecified type (HCC) COMPREHENSIVE METABOLIC PANEL Routine 06/10/2023 9:39 AM CDT Osteomyelitis of right foot, unspecified type (HCC) documented in this encounter Results * (ABNORMAL) CBC WITH DIFFERENTIAL (06/10/2023 10:43 AM CDT) WBC 6.0 3.5 - 10.5 10? 3 /uL 06/10/2023 11:21 AM CDT [facility] RBC 4.28 3.80 - 5.20 10? 6 /uL 06/10/2023 11:21 AM [facility] Hemoglobin 11.9(L) 12.0 - 15.6 g/dL 06/10/2023 11:21 AM [facility] Hematocrit 39.9 35.0 - 45.0 % 06/10/2023 11:21 AM [facility] MCV 93.2 80.7 - 98.3 fL 06/10/2023 11:21 AM [facility] MCH 27.8 26.7 - 34.0 pg 06/10/2023 11:21 AM [facility] MCHC 29.8(L) 30.8 - 35.9 g/dL 06/10/2023 11:21 AM [facility] RDW-SD 67.6(H) 36.0 - 50.0 fL 06/10/2023 11:21 AM [facility] RDW-CV 19.9(H) 11.2 - 14.8 % 06/10/2023 11:21 AM [facility] Platelet Count 434(H) 150 - 400 10? 3 /uL 06/10/2023 11:21 AM [facility] MPV 9.7 9.4 - 12.9 fL 06/10/2023 11:21 AM [facility] nRBC Absolute 0.00 0 10? 3 /uL 06/10/2023 11:21 AM [facility] nRBC Auto 0.0 0 /100 WBC 06/10/2023 11:21 AM [facility] Neutrophils % 48.6 35.0 - 70.0 % 06/10/2023 11:21 AM [facility] Lymphocytes % 31.4 20.0 - 43.0 % 06/10/2023 11:21 AM [facility] Monocytes % 7.0 5.0 - 13.0 % 06/10/2023 11:21 AM [facility] Eosinophils % 11.9(H) 0.0 - 6.0 % 06/10/2023 11:21 AM [facility] Basophil % 0.8 0.0 - 2.0 % 06/10/2023 11:21 AM [facility] Neutrophils Absolute 2.91 1.60 - 7.00 10? 3 /uL 06/10/2023 11:21 AM [facility] Lymphocyte Absolute 1.88 1.10 - 3.90 10? 3 /uL 06/10/2023 11:21 AM [facility] Monocytes Absolute 0.42 0.26 - 1.07 10? 3 /uL 06/10/2023 11:21 AM CDT [facility] Eosinophils Absolute 0.71(H) 0.00 - 0.47 10? 3 /uL 06/10/2023 11:21 AM CDT [facility] Basophils Absolute 0.05 0.00 - 0.08 10? 3 /uL 06/10/2023 11:21 AM CDT [facility] Immature Granulocytes % 0.3 0.0 - 1.0 % 06/10/2023 11:21 AM CDT [facility] Immature Granulocytes Absolute 0.02 06/10/2023 11:21 AM CDT [facility] Blood BLOOD SPECIMEN / Unknown Venipuncture / Unknown 06/10/2023 10:43 AM CDT 06/10/2023 11:04 AM CDT Roxanna Roth PA-C LAB - HEMATOLOGY ORD ERABLES Performing Organization Address City/[facility]/ZIP Co de Phone Number [address] [address], [place] [phone] * C-REACTIVE PROTEIN (06/10/2023 9:39 AM CDT) C-Reactive Protein <0.5 <=0.5 mg/dL 06/10/2023 11:27 AM CDT [facility] Blood BLOOD SPECIMEN / Unknown Venipuncture / Unknown 06/10/2023 9:39 AM CDT 06/10/2023 10:57 AM CDT Roxanna Roth PA-C LAB - CHEMISTRY ORDE RABLIZA [address] [address], [place] [phone] * (ABNORMAL) ERYTHROCYTE SEDIMENTATION RATE (06/10/2023 9:39 AM CDT) Erythrocyte Sedimentation Rate Westergren 57(H) 0 - 20 MM/HR 06/10/2023 11:15 AM CDT [facility] Blood BLOOD SPECIMEN / Unknown Venipuncture / Unknown 06/10/2023 9:39 AM CDT 06/10/2023 11:15 AM CDT Roxanna Roth PA-C LAB - HEMATOLOGY ORD ERABLES [facility] [address] [place] [address], [facility] [phone] * (ABNORMAL) COMPREHENSIVE METABOLIC PANEL (06/10/2023 9:39 AM CDT) BUN 8 7 - 26 mg/dL 06/10/2023 11:45 AM [facility] Creatinine 1.96(H) 0.56 - 0.96 mg/dL 06/10/2023 11:45 AM [facility] Sodium 143 136 - 145 mmol/L 06/10/2023 11:45 AM [facility] Potassium 4.1 3.5 - 4.5 mmol/L 06/10/2023 11:45 AM [facility] Chloride 110(H) 98 - 107 mmol/L 06/10/2023 11:45 AM [facility] CO2 25 22 - 29 mmol/L 06/10/2023 11:45 AM [facility] Glucose 79 70 - 115 mg/dL 06/10/2023 11:45 AM [facility] Calcium 8.3(L) 8.4 - 10.2 mg/dL 06/10/2023 11:45 AM [facility] Protein Total 5.8(L) 6.0 - 8.3 g/dL 06/10/2023 11:45 AM [facility] Albumin 1.5(L) 3.4 - 5.0 g/dL 06/10/2023 11:45 AM [facility] Bilirubin Total 0.2 0.2 - 1.2 mg/dL 06/10/2023 11:45 AM [facility] Alkaline Phosphatase 139 40 - 150 U/L 06/10/2023 11:45 AM [facility] ALT 8 5 - 55 U/L 06/10/2023 11:45 AM [facility] AST 12 5 - 34 U/L 06/10/2023 11:45 AM [facility] Anion Gap 12 8 - 18 06/10/2023 11:45 AM [facility] BUN/Creatinine Ratio 4(L) 7 - 23 06/10/2023 11:45 AM [facility] Osmolality Calculated 293 270 - 300 mOsm/kg 06/10/2023 11:45 AM [facility] Albumin/Globulin Ratio 0.3(L) 1.1 - 2.3 06/10/2023 11:45 AM [facility] eGFR by CKD-EPI 35(L) >=90 mL/min/1.7 3 m2 06/10/2023 11:45 AM [facility] Blood BLOOD SPECIMEN / Unknown Venipuncture / Unknown 06/10/2023 9:39 AM CDT 06/10/2023 11:[address] [facility] Roxanna Roth PA-C LAB - CHEMISTRY DIVINA OL[facility] Organization Address City/State/ZIP Co de Phone Number [facility] [address] [place] [address], [facility] [phone] documented in this encounter Visit Diagnoses Diagnosis Osteomyelitis of right foot, unspecified type (HCC) documented in this encounter
--- OUTSIDE RECORDS SUMMARY | 2024-11-17 03:01 | XMS_ITS | Encounter Summary ---
Author Organization [facility] Health Address [address] [place] [address] Care Team Providers Care Supervisor Record Press Name Role Phone Cherise Patrick PA-C Primary Care Provider Encounter Details Date Type Department Care Team (Latest Contact Info) Description 02/23/2024 Travel Social History Tobacco Use Types Packs/Day [...] Date Recorded PHQ2 TOTAL SCORE 0 06/10/2023 [facility] [place] [facility] - Occupational Stress [...] in a senior care (including now)? 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
--- OUTSIDE RECORDS SUMMARY | 2024-11-17 03:01 | XMS_ITS | Encounter Summary ---
Author Organization [facility] Health Address [address] [place] [address] Care Team Providers Care Truck Bench Mechanic Name Role Phone Unavailable Primary Care Provider Unavailabl e Encounter Details Date Type Department Care Team (Latest Contact Info) Description 06/10/2023 Travel Social History Tobacco Use Types Packs/Day [...] Date Recorded PHQ2 TOTAL SCORE 0 06/10/2023 [facility] [place] [facility] - Occupational Stress [...] slept in a fdc (including now)? No 05/18/2023 Sex and Gender [...] No 05/18/2023 documented as of this encounter Plan of Treatment Upcoming Encounters Date Type Department Care Team (Late st Contact Info) Description 11/22/2024 1:30 PM VERIFICATION ENGINEER Office Visit [facility] - Infectious Disease [address] [place] [address], [facility] [place] [address] [place] [address] [place] [address] documented as of this encounter Visit Diagnoses Not on filedocumented in this encounter
--- OUTSIDE RECORDS SUMMARY | 2024-11-17 03:01 | XMS_ITS | Encounter Summary ---
Author Organization [facility] Address [address] [place] [address] Care Team Providers Care Field Marketing Director Name Role Phone Unavailable Primary Care Provider Unavailabl e Reason for Visit * Reason Comments Follow-up Encounter Details Date Type Department Care Team (Latest Contact Info) Description 06/10/2023 8:30 AM CDT Office Visit [facility] - Infectious Disease [facility] [place] [address] Osteomyelitis of right foot, unspecified type (HCC) (Primary Dx); Hypertension, unspecified type Social History Tobacco Use [...] Date Recorded PHQ2 TOTAL SCORE 0 06/10/2023 [facility] - Occupational Stress Questionnaire Answer Date [...] Sign Reading Time Taken Comments Blood Pressure 170/90 06/10/2023 8:45 AM CDT Pulse 83 06/10/2023 8:45 AM CDT Temperature 36.1 ??C (96.9 ??F) 06/10/2023 8:45 AM CD T Respiratory Rate 18 06/10/2023 8:45 AM CDT Oxygen Saturation 94% 06/10/2023 8:45 AM CDT Inhaled Oxygen Concentration - - Weight 129.7 kg (286 lb) 06/10/2023 8:45 AM CDT Height 170.2 cm (5' 7.01 ) 06/10/2023 8:45 AM CD T Body Mass Index 44.78 06/10/2023 8:45 AM CDT documented in this encounter Functional [...] No 05/18/2023 documented as of this encounter Patient Instructions * Patient Instructions* Roxanna Roth PA-C - 06/10/2023 9:41 AM CDT - Today you saw Roxanna Roth PA-C in the ID clinic. - The best way to reach us at [facility] Infectious diseases clinic is through [employer] or by calling [phone] if you should have any questions or concerns. - You had labs drawn in the clinic to see how you responded to your oral antibiotics. I will followup with these lab results once I get them back in the next 24 hours. If your labs show any signs that your infection has worsened, I will get you set up to see a vascular surgeon for follow up. - Continue to follow up with good wound care. - You do not currently need further antibiotics as you have been treated for 6 weeks for osteomyelitis (bone infection). - If you should develop any worsening drainage from your heel wound or you develop leg swelling, pain, fevers, then you should be reevaluated. - I spoke with your nurse about your blood pressures, they are supposed to follow your blood pressures closely with a goal of near 120/80. Make sure you take your blood pressure medications as prescribed. documented in this encounter Progress Notes * Fatemeh Echeverria RN - 06/10/2023 10:14 AM CDT Dressing changed for right heel. Wound cleaned and dry. Dressing clean and intact. Venipuncture to left AC. Pressure held and bandage/coban applied. Pt tolerated well. * Roxanna Roth PA-C - 06/10/2023 10:02 AM CDT Images from the original note were not included. [facility] Progress Note Patient Name: Gay Canales 1990 Primary Care Physician: No primary care provider on file. History of Present Illness HPI: Gay Canales??is a 32 year old?female??with a past medical history significantfor essential hypertension, diabetes mellitus, obesity, depression, PTSD, past left leg necrotizinginfection s/p left AKA, here for follow up in OPAT clinic at 6 weeks of antibiotics for right heel osteomyelitis. She has a history of left necrotizing fasciitis s/p left AKA. She had been following regularly withwound care clinic. As per chart review, right leg wounds had been going on for at least 4-5 months.She followed up with wound care nurse and performed office debridement on 03/03/2023, samples sent for culture and grew GBS and MRSA. She was then prescribed doxycyline and topical gentamicin and ketoconazole. She followed up with wound care clinic again on 03/17/2023 and was added Augmentin. Seen again on 03/24/2023 and was prescribed topical mupirocin. Patient presented to [facility] on??04/26/2023??as a transfer from OSH for surgical evaluation in the setting of right foot osteomyelitis.??Patient initially presented to OSH on 04/15/2023 with a chief complaint of dyspnea and hypoxia on home monitor. She reported cough, no sputum production. She denied fever, chills, diaphoresis. At OSH she was worked up for hypoxia and it was thought to be due to volume overload in the setting of heart failure. She was also noted right foot wound concerning for infection.??Right foot x-ray showed soft tissue gas and findings concerning for acute osteomyelitis. Right foot wound cultures growing GBS. ID was consulted for right diabetic foot infection with calcaneal osteomyelitis. She was started on daptomycin, ceftriaxone, metronidazole. Vascular surgery consulted at OSH and recommended amputation but patient refused and transferred to [facility] for second opinion. Labs upon transfer to [facility] remarkable for leukocytosis.??She was continued on IV antibiotics.?Vascular surgery consulted. Patient again declined surgical intervention and opted for conservative management with antibiotics. Patient was discharged on 05/09/2023 with IV vancomycin, IV cefepime, and PO flagyl. Patient was readmitted 05/17/2023 for RUE swelling, found to have DVT in brachial vein, PICC line had to be pulled. 05/17 she had blood cultures (11/04) +Staph epidermidis and (11/04) +Staph haemolyticus and Staph Epidermidis. This was considered a contamination. To avoid further line infections, patient was transitioned to oral antibiotics to complete her therapy with doxycycline 100 mg BID, ciprofloxacin 750 mg BID, and flagyl 500 mg TID. Today patient feels well. She does not have any fevers, chills, headaches, shortness of breath, newjoint pains. She is having no pain in the right heel, although she has never had pain in the right heel. She gets wound care daily. Wound care said her wounds seem to be doing better. She has not been told there is any purulent drainage or discharge. She has been tolerating her doxycycline, ciprofloxacin, and flagyl without any side effects. She took her last dose of antibiotics on 06/07/2023. She has had loose BMs but only after eating and without abdominal pain or cramping, has had no loss of appetite. She has not had more than 6 loose BMs per day. Patient reports that she has not yet had herblood pressure medications for the day, these are typically given at 11 AM. Denies any swelling to the upper extremities. I spoke with her nurse at [facility] who stated that her blood pressure at 0142 this AM was 124/82. She has no planned discharge date from [facility]. Her last labs were drawn on 05/22/2023 and the nurse will fax these to the clinic. Medical History Past Medical History: Diagnosis Date ??? Essential (primary) hypertension ??? Heart failure (CMS/HCC) ??? Type 2 diabetes mellitus without complications (CMS/HCC) Surgical History Past Surgical History: Procedure Laterality Date ??? LEG AMPUTATION ABOVE KNEE Left 12/05/2022 Left; AMPUTATION ABOVE LEFT KNEE ??? Leg Amputation, Below Knee Left 12/02/2022 Left; LEFT ANKLE DISARTICULATION LEVEL 2 @ 2220 Social History Social History Socioeconomic History ??? Marital status: Single Tobacco Use ??? Smoking status: Former Types: Cigarettes Start date: 2010 ??? Smokeless tobacco: Never ??? Tobacco comments: Quit 4-5 months after starting Vaping Use ??? Vaping Use: Never used Substance and Sexual Activity ??? Alcohol use: Not Currently Comment: Occassionally ??? Drug use: Not Currently Types: Marijuana Comment: At age 20 for 4-5 months Immunizations: Immunization History Administered Date(s) Administered ??? DTP, HISTORIC VACCINE 1992, 02/16/1993, 06/01/1993, 05/08/1994 ??? HEP B VACCINE, PED/ADOL 06/01/1993, 07/27/1993, 03/06/1994 ??? Hib,HISTORIC VACCINE 1992, 02/16/1993, 06/01/1993, 01/04/1994 ??? Human Papilloma Virus Bivalent Vaccine 04/25/2008, 06/24/2008 ??? MENINGOCOCCAL, HISTORIC VACCINE 04/25/2008 ??? MMR, HISTORIC VACCINE 01/04/1994 ??? POLIO OPV 1992, 02/16/1993, 06/01/1993, 03/06/1994 ??? TDAP 12/02/2022 ??? TDAP, HISTORIC VACCINE 08/14/2006 ??? VARICELLA 08/13/2007, 04/25/2008 Family History Family History Problem Relation Name Age of Onset ??? Diabetes - Type 2 Mother ??? Hypertension Mother ??? Diabetes - Type 2 Father ??? Hypertension Father ??? Diabetes - Type 2 Paternal Grandmother ??? Hypertension Paternal Grandmother Review of Systems Review of Systems Constitutional: Negative for chills, diaphoresis, fever, malaise/fatigue and weight loss. HENT: Negative for hearing loss. Eyes: Negative for blurred vision, double vision and photophobia. Respiratory: Negative for cough, shortness of breath and wheezing. Cardiovascular: Negative for chest pain and palpitations. Gastrointestinal: Negative for abdominal pain, constipation, diarrhea, nausea and vomiting. Loose stools after eating Musculoskeletal: Negative for myalgias. Left BKA Skin: Negative for itching and rash. +Right calcaneal ulcer, right lateral heel ulcer. Neurological: Negative for dizziness, weakness and headaches. Allergies No Known Allergies Antimicrobial History Current Antibiotics PO Doxycycline (05/22 - 06/07/2023) PO ciprofloxacin (05/22 - 06/07/2023) PO flagyl (04/26 - 06/07/2023) Prior Antibiotics At U IV vancomycin (04/26 - 05/22/2023) IV cefepime (04/26 - 05/22/2023) Home Medications Prior to Admission medications Medication Sig Start Date End Date Taking? Authorizing Provider Alcohol Swabs (Alcohol Prep) 70 % USE ONE SWAB TO CLEAN SKIN FOUR TIMES DAILY BEFORE TESTING 12/12/22Yes Amanda Georges MD apixaban (Eliquis) 5 MG tablet Take 1 (one) tablet by mouth 2 times daily for 90 days 05/26/23 08/24/23 Yes Willard Estrella MD apixaban (Eliquis) 5 MG tablet Take 2 (two) tablets by mouth 2 times daily for 2 days 05/23/23 05/25/23 Willard Estrella MD blood glucose (OneTouch Verio) test strip USE ONE STRIP TO TEST BLOOD SUGAR FOUR TIMES DAILY 12/12/22Yes Amanda Georges MD Blood Glucose Monitoring Suppl (OneTouch Verio Reflect) w/Device KIT Use 1 kit 4 times daily USE METER TO CHECK BLOOD GLUCOSE FOUR TIMES DAILY Reasons: CALL [facility] WHEN DELIVERING X4364 12/12/22 Yes Amanda Georges MD carvedilol (Coreg) 12.5 MG tablet Take 1 (one) tablet by mouth 2 times daily with morning and evening meal 12/12/22 Yes KoRosi faust V., PROGRAM ARRANGER-LEDGER POSTER FeroSul 325 (65 Fe) MG tablet Take 1 (one) tablet by mouth daily with breakfast 08/08/22 Yes Rebel Garcia MD furosemide (Lasix) 40 MG tablet Take 1 (one) tablet by mouth every Friday, Friday & Friday05/23/23 Yes Willard Estrella MD gabapentin (Neurontin) 100 MG capsule Take 1 (one) capsule by mouth 3 times daily 12/27/22 Rebel Garcia MD insulin lispro (HumaLOG;ADMelog) 100 UNIT/ML pen Inject 0 (zero) Units to 6 (six) Units subcutaneously 3 times daily with meals 05/09/23 Yes Joe Vargas MD Lancets (ONETOUCH DELICA PLUS 33G EXTRA FINE LANCET) USE ONE LANCET TO PRICK FINGER FOUR TIMES DAILY FOR BLOOD GLUCOSE TESTING 12/12/22 Yes Amanda Georges MD lisinopril (Prinivil; Zestril) 10 MG tablet Take 1 (one) tablet by mouth once daily 05/24/23 Yes Willard Estrella MD melatonin 3 MG tablet Take 1 (one) tablet by mouth nightly as needed for Insomnia 05/09/23 Yes Joe Vargas MD nystatin (Mycostatin) 166035 UNIT/GM powder Apply to affected area 3 times daily 12/12/22 Rosi Menard V. PROGRAM ARRANGER-LEDGER POSTER potassium chloride ER (Klor-Con M) 20 MEQ tablet Take 1 (one) tablet by mouth daily with breakfast 12/12/22 Yes Rosi Menard APRN-LEDGER POSTER Objective Vitals BP 170/90 (BP SITE: LEFT ARM, BP POSITION: SITTING, BP CUFF SIZE: 11) Pulse 83 Temp 96.9 ??F (36.1 ??C) (Temporal) Resp 18 Ht 1.702 m (5' 7.01 ) Wt 129.7 kg (286 lb) SpO2 94% @TMAX(24)@ Physical Exam Physical Exam Constitutional: General: She is not in acute distress. Appearance: She is obese. HENT: Head: Normocephalic. Cardiovascular: Rate and Rhythm: Normal rate and regular rhythm. Heart sounds: Normal heart sounds. No murmur heard. No gallop. Pulmonary: Effort: Pulmonary effort is normal. No respiratory distress. Breath sounds: Normal breath sounds. No wheezing or rales. Abdominal: General: Bowel sounds are normal. Comments: Abdomen obese Musculoskeletal: Cervical back: Normal range of motion. Comments: +Left BKA +Right lower extremity edema +Right plantar calcaneal ulcer with overlying eschar +Right lateral heel wound, uncertain of depth, without purulent drainage or surrounding erythema. +See media images uploaded 06/10/2023 Skin: General: Skin is warm and dry. Neurological: Mental Status: She is alert and oriented to person, place, and time. Psychiatric: Mood and Affect: Mood normal. Behavior: Behavior normal. Lab Review Labs Collected 06/10/2023: CBC: - WBC 6.0 - Plt 434 - Eosinophils 11.9% CMP: - Creatinine 1.96 - GFR 35 - ALT 8 - AST 12 - Alk phos 139 CRP < 0.5 ESR 57 (down from 105) CBC: Recent Labs Component Name 05/22/2352005/21/2344905/20/23 0542 WBC 6.2 7.0 6.3 RBC 3.27* 3.22* 3.47* HGB 8.9* 8.8* 9.4* HCT 30.9* 30.3* 32.6* MCV 94.5 94.1 93.9 BMP: Recent Labs Component Name 05/22/2352005/21/2344905/20/23 0542 NA 143 143 143 CL 110* 109* 110* CO2 26 27 29 BUN 10 13 12 CREATININE 1.52* 1.62* 1.65* ALB 1.4* 1.4* 1.4* PROT 5.3* 5.2* 5.4* CrCl cannot be calculated (Patient's most recent lab result is older than the maximum 15 days allowed.). LFTs: Recent Labs Component Name 05/22/2352005/21/2344905/20/23 0542 12/02/22 1955 08/25/22 0315 08/24/22 1404 08/24/22 0725 ALKPHOS 143 140 153* - - - - ALT 5 6 5 - - - - AST 9 7 9 - - - - ALBUMIN - - - - 2.0* 2.1* 1.7* - = values in this interval not displayed. Coagulation: Recent Labs Component Name 04/26/23 0629 PT 16.3* INR 1.3 PTT 29.8 Microbiology, Imaging and other diagnostic tests MICROBIOLOGY: Blood culture: Collected 05/17/2023: - (12): Staph Epidermidis - (11/04): Staph Epidermidis, Staph haemolyticus Other Serologies: Collected 04/27/2023: - HIV non-reactive - Hep C non-reactive HISTOPATHOLOGY: None at this admission IMAGING & PROCEDURES: Pertinent images independently reviewed; report in chart 04/29/2023: MRI Right TIb/Fib w/wo contrast IMPRESSION: 1.No evidence of osteomyelitis in the tibia and fibula. 2.Cellulitis and myositis of the right leg the level of the knee predominantly involving the posterior compartment muscles. 3.Partially seen osteomyelitis of the calcaneus and soft tissue abscess at the medial aspect of theankle are better visualized on the prior MRI ankle dated 04/28/2023. 04/28/2023: MRI Right foot and ankle w/wo contrast IMPRESSION: 1.Bone marrow signal abnormality involving the most of the calcaneus associated soft tissue edema and large amount of soft tissue gas, consistent with osteomyelitis. 2.Bone marrow edema in the fifth digit metatarsal. 3.A 2.6 x 2.8 x 4.9 cm rim-enhancing fluid collection at the medial aspect of the ankle, consistentwith abscess. The process extends posteriorly and laterally to the lateral aspect of the calcaneus with associated soft tissue gas and ulceration of the heel. 4.Diffuse myositis of the ankle and foot with tenosynovitis of the peroneus brevis. Assessment and Recommendations Gay Canales??is a 32 year old?female??with a past medical history significantfor essential hypertension, diabetes mellitus, obesity, depression, PTSD, past left leg necrotizinginfection s/p left AKA, here for follow up in OPAT clinic at 6 weeks of antibiotics for right heel osteomyelitis. #Osteomyelitis right calcaneous #Right medial ankle abscess - Vascular surgery consulted on the patient, recommended amputation vs. Surgical debridement. Per vascular note: Patient will benefit from amputation. However, patient refusing amputation despite explaining risks of ongoing untreated infection and possible development of sepsis, multiorgan failure, and potential . Patient will need ongoing discussion about surgical treatment . - Patient has been treated with four weeks of IV antibiotics (vancomycin, cefepime and flagyl -04/26- 05/23) and completed remainder of 6 weeks with oral doxycycline and flagyl (05/23 - EOT 06/07) which is appropriate for osteomyelitis. - At this time, the patient will likely have chronic osteomyelitis of the right foot and ankle until adequate source control is achieved. Prolonged antibiotics are not without significant side effects and at this time not recommended. - Patient should continue with proper wound care of the right foot. Based on review of media imagesthere is no significant worsening of patient's foot wounds. - Current CRP is < 0.5, ESR is 57, down from 105. #Hypertension - Blood pressure significantly elevated but patient has missed her morning dose of BP meds. Called nursing staff at [facility] for recommendations. Renal Function: CrCl cannot be calculated (Patient's most recent lab result is older than the maximum 15 days allowed.). Plan/Recommendations - Patient has been treated with 6 weeks of antibiotics for osteomyelitis. IV vancomycin and cefepime with PO flagyl from 04/26 - 05/22). Oral antibiotics (doxycycline, ciprofloxacin, and PO flagyl) to complete 6 week course, EOT 06/07. - CRP has not been elevated, the ESR has trended down. Which shows like improvement. - At this time no further antibiotics are needed as patient has been appropriately treated for osteomyelitis. There has not been definitve source control which will make prolonging any antibiotics more of a risk than benefit to the patient. Patient risks polymicrobial / MDRO infections with prolonged exposure to antibiotics. - Patient given instructions if she should develop increase drainage from the heel wounds, she develops fevers, chills, new nausea, vomiting then she will need re-evaluation soon. - I spoke with her nurse at [facility], patient needs to have blood pressures monitored closely as they were elevated in the clinic today. Advised to make sure patient gets her routine blood pressure medications. Patient seen, examined, and case/plan were discussed with my attending physician, Dr. Ramirez. I spent over 45 min in the care of this patient, and over 50% of that time was spent in counseling and coordination of care. Roxanna Roth PA-C, MPAS [facility] Infectious Disease Clinic [address] [place] [address] Clinic phone [phone] Clinic fax [phone] documented in this encounter Plan of Treatment Upcoming Encounters Date Type Department Care Team (Late st Contact Info) Description 11/22/2024 1:30 PM [employer] Office Visit [facility] - Infectious Disease [address] [place] [address], [place] [id number] Kash Ha MD [address] [place] [address] documented as of this encounter Results * (ABNORMAL) CBC WITH DIFFERENTIAL (06/10/2023 10:43 AM [facility]) WBC 6.0 3.5 - 10.5 10? 3 /uL 06/10/2023 11:21 AM [facility] RBC 4.28 3.80 - 5.20 10? 6 /uL 06/10/2023 11:21 AM [facility] Hemoglobin 11.9(L) 12.0 - 15.6 g/dL 06/10/2023 11:21 AM [facility] Hematocrit 39.9 35.0 - 45.0 % 06/10/2023 11:21 AM [facility] MCV 93.2 80.7 - 98.3 fL 06/10/2023 11:21 AM [facility] MCH 27.8 26.7 - 34.0 pg 06/10/2023 11:21 AM [facility] MCHC 29.8(L) 30.8 - 35.9 g/dL 06/10/2023 11:21 AM [facility] RDW-SD 67.6(H) 36.0 - 50.0 fL 06/10/2023 11:21 AM [facility] RDW-CV 19.9(H) 11.2 - 14.8 % 06/10/2023 11:21 AM [facility] Platelet Count 434(H) 150 - 400 10? 3 /uL 06/10/2023 11:21 AM [facility] MPV 9.7 9.4 - 12.9 fL 06/10/2023 11:21 AM [facility] nRBC Absolute 0.00 0 10? 3 /uL 06/10/2023 11:21 AM [facility] nRBC Auto 0.0 0 /100 WBC 06/10/2023 11:21 AM [facility] Neutrophils % 48.6 35.0 - 70.0 % 06/10/2023 11:21 AM [facility] Lymphocytes % 31.4 20.0 - 43.0 % 06/10/2023 11:21 AM [facility] Monocytes % 7.0 5.0 - 13.0 % 06/10/2023 11:21 AM [facility] Eosinophils % 11.9(H) 0.0 - 6.0 % 06/10/2023 11:21 AM [facility] Basophil % 0.8 0.0 - 2.0 % 06/10/2023 11:21 AM [facility] Neutrophils Absolute 2.91 1.60 - 7.00 10? 3 /uL 06/10/2023 11:21 AM [facility] Lymphocyte Absolute 1.88 1.10 - 3.90 10? 3 /uL 06/10/2023 11:21 AM [facility] Monocytes Absolute 0.42 0.26 - 1.07 10? 3 /uL 06/10/2023 11:21 AM [facility] Eosinophils Absolute 0.71(H) 0.00 - 0.47 10? 3 /uL 06/10/2023 11:21 AM [facility] Basophils Absolute 0.05 0.00 - 0.08 10? 3 /uL 06/10/2023 11:21 AM [facility] Immature Granulocytes % 0.3 0.0 - 1.0 % 06/10/2023 11:21 AM [facility] Immature Granulocytes Absolute 0.02 06/10/2023 11:21 AM [facility] Blood BLOOD SPECIMEN / Unknown Venipuncture / Unknown 06/10/2023 10:43 AM CDT 06/10/2023 11:04 AM CDT Roxanna Roth PA-C LAB - HEMATOLOGY ORD ERABLES [address] [address] [phone] * C-REACTIVE PROTEIN (06/10/2023 9:39 AM CDT) C-Reactive Protein <0.5 <=0.5 mg/dL 06/10/2023 11:27 AM CDT [facility] Blood BLOOD SPECIMEN / Unknown Venipuncture / Unknown 06/10/2023 9:39 AM CDT 06/10/2023 10:57 AM CDT Roxanna Roth PA-C LAB - CHEMISTRY ORDE RABLES Performing Organization Address City/[facility]/ZIP Co de Phone Number [address] [address], [facility] [phone] * (ABNORMAL) ERYTHROCYTE SEDIMENTATION RATE (06/10/2023 9:39 AM CDT) Erythrocyte Sedimentation Rate Westergren 57(H) 0 - 20 MM/HR 06/10/2023 11:15 AM CDT [facility] Blood BLOOD SPECIMEN / Unknown Venipuncture / Unknown 06/10/2023 9:39 AM CDT 06/10/2023 11:15 AM CDT Roxanna Roth PA-C LAB - HEMATOLOGY ORD ERABLES [address] [address], [facility] [phone] * (ABNORMAL) COMPREHENSIVE METABOLIC PANEL (06/10/2023 9:39 AM CDT) BUN 8 7 - 26 mg/dL 06/10/2023 11:45 AM [facility] Creatinine 1.96(H) 0.56 - 0.96 mg/dL 06/10/2023 11:45 AM T [facility] Sodium 143 136 - 145 mmol/L 06/10/2023 11:45 AM [facility] Potassium 4.1 3.5 - 4.5 mmol/L 06/10/2023 11:45 AM [facility] Chloride 110(H) 98 - 107 mmol/L 06/10/2023 11:45 AM [facility] CO2 25 22 - 29 mmol/L 06/10/2023 11:45 AM [facility] Glucose 79 70 - 115 mg/dL 06/10/2023 11:45 AM [facility] Calcium 8.3(L) 8.4 - 10.2 mg/dL 06/10/2023 11:45 AM [facility] Protein Total 5.8(L) 6.0 - 8.3 g/dL 06/10/2023 11:45 AM [facility] Albumin 1.5(L) 3.4 - 5.0 g/dL 06/10/2023 11:45 AM [facility] Bilirubin Total 0.2 0.2 - 1.2 mg/dL 06/10/2023 11:45 AM [facility] Alkaline Phosphatase 139 40 - 150 U/L 06/10/2023 11:45 AM [facility] ALT 8 5 - 55 U/L 06/10/2023 11:45 AM [facility] AST 12 5 - 34 U/L 06/10/2023 11:45 AM [facility] Anion Gap 12 8 - 18 06/10/2023 11:45 AM [facility] BUN/Creatinine Ratio 4(L) 7 - 23 06/10/2023 11:45 AM [facility] Osmolality Calculated 293 270 - 300 mOsm/kg 06/10/2023 11:45 AM [facility] Albumin/Globulin Ratio 0.3(L) 1.1 - 2.3 06/10/2023 11:45 AM [facility] eGFR by CKD-EPI 35(L) >=90 mL/min/1.7 3 m2 06/10/2023 11:45 AM [facility] Blood BLOOD SPECIMEN / Unknown Venipuncture / Unknown 06/10/2023 9:39 AM T 06/10/2023 11:04 AM [facility] Roxanna Roth PA-C LAB - CHEMISTRY DIVINA OLVERA [facility] Organization Address City/State/ZIP Co de Phone Number [facility] [address] [place] [address], [facility] [phone] documented in this encounter Visit Diagnoses Diagnosis Osteomyelitis of right foot, unspecified type (HCC)- Primary Hypertension, unspecified type documented in this encounter
--- OUTSIDE RECORDS SUMMARY | 2024-11-17 03:01 | XMS_ITS | Encounter Summary ---
Author Organization [facility] Address [address] [facility] [place] [address] Care Team Providers Care [employer] Name Role Phone Unavailable Primary Care Provider Unavailabl e Reason for Visit * Reason Onset Date Comments Follow-up 06/12/2023 Encounter Details Date Type Department Care Team (Late st Contact Info) Description 06/12/2023 Telephone [facility] - Infectious Disease [address] [place] [id number] Roxanna Roth PA-C [facility] [place] [address] Follow-up Social History Tobacco Use Types Packs/Day Years [...] Date Recorded PHQ2 TOTAL SCORE 0 06/10/2023 [facility] - [...] slept in a longterm (including now)? No 05/18/2023 Sex and Gender [...] No 05/18/2023 documented as of this encounter Miscellaneous Notes * Telephone Encounter - Roxanna Roth PA-C - 06/12/2023 2:20 PM CDT I called [facility] to discuss recent lab results from 06/10/2023. Relayed message to Bryanna Quispe RN. Creatinine up from previous labs to 1.96 and GFR down to 35. - Patient has not taken any IV antibiotics (vancomycin, ceftriaxone) since 05/22/2023 and has been off all oral antibiotics (ciprofloxacin, doxycycline, and flagyl) since 06/07/2023. - This should be addressed by primary staff physician at [facility]. - Will have staff fax lab results to [facility], fax [phone]. - Patient does not need any further antibiotics but should be watched closely for any signs or symptoms of recurrent infection in the right foot. JESSICA Sorensen PA-C Division of Infectious Diseases Pager: [phone] ID Clinic ID Clinic documented in this encounter Plan of Treatment Upcoming Encounters Date Type Department Care Team (Late st Contact Info) Description 11/22/2024 1:30 PM [employer] Office Visit [facility] - Infectious Disease [address] [place] [address], [place] [phone] Kash Ha MD [address] [place] [address] documented as of this encounter Visit Diagnoses Not on filedocumented in this encounter
--- OUTSIDE RECORDS SUMMARY | 2024-11-17 03:01 | XMS_ITS | Encounter Summary ---
Author Organization [facility] Address [address] [place] [address] Care Team Providers Care Table Tender Sludge Name Role Phone Cherise Marcelo PA-C Primary Care Provider Reason for Referral * Evaluate & Treat (Routine) - Closed Specialty Diagnoses / Procedures Referred By Contac t Referred To Contact Orthopedics Diagnoses Osteomyelitis of left shoulder, unspecified type (HCC) Franck Hennessy MD [address] [place] [address] [facility] [address] [place] [address] Referral ID Status Reason Start Date Expiration Date V isits Requested Visits Authorized [id number] Closed Continuity of Care 06/03/2024 06/03/2025 1 1 Reason for Visit * Auth/Cert (Routine) Specialty Diagnoses / Procedures Referred By Contac t Referred To Contact Diagnoses Osteomyelitis left shoulder Referral ID Status Reason Start Date Expiration Date Visits Re quested Visits Authorized [id number] 1 1 Encounter Details Date Type Department Care Team (Latest Contact Info) Description 05/23/2024 8:00 PM CDT - 06/03/2024 5:43 PM CDT Hospital Encounter DIANA GARZA [address] [place] [address] Celina Lucia MD [address] [facility] [address] DIV OF [facility] [place] [address] Noe Rabago MD [address] [place] [address] Hunter Chin III, MD [address] [place] [address] Rob Cruz MD [address] [facility] 2L DIV [facility] [place] [address] Franck Hennessy MD [address] [place] [address] Internal Medicine Discharge Disposition: Retirement Facility Social History Tobacco Use Types Packs/Day [...] Date Recorded PHQ2 TOTAL SCORE 0 06/10/2023 [place] [facility] - Occupational Stress [...] slept in a intermediate (including now)? No 05/23/2024 Sex and Gender Information Value Date Recorded Sex Assigned at Not on file Gender Identity Not on file Sexual Orientation Not on file documented as of this encounter Last Filed Vital Signs Vital Sign Reading Time Taken Comments Blood Pressure 125/79 06/03/2024 3:57 PM CDT Pulse 92 06/03/2024 3:57 PM CDT Temperature 37 ??C (98.6 ??F) 06/03/2024 3:57 PM CDT Respiratory Rate 16 06/03/2024 3:57 PM CDT Oxygen Saturation 96% 06/03/2024 3:57 PM CDT Inhaled Oxygen Concentration - - Weight 93.4 kg (205 lb 14.6 oz) 05/24/2024 2:00 PM CDT Height 182.9 cm (6') 05/24/2024 2:00 PM CDT Body Mass Index 27.93 05/24/2024 2:00 PM CDT documented in this encounter Functional [...] No 05/23/2024 documented as of this encounter Discharge Summaries * Franck Hennessy MD - 06/03/2024 4:04 PM CDT Physician Discharge Summary Patient ID: Gay Canales [id number] 33 year old 1990 Admit date: 05/23/2024 Discharge date: 06/03/2024 Admitting Physician: Celina Lucia MD Discharge Physician: Franck Hennessy MD Admission Diagnoses: Osteomyelitis left shoulder Discharge Diagnoses: Principal Problem: Osteomyelitis of left shoulder, unspecified type ([facility]) Active Problems: ESRD (end stage renal disease) ([facility]) Type 2 diabetes mellitus with diabetic polyneuropathy ([facility]) Discharged Condition: fair Hospital Course: This patient was admitted for left shoulder pain. Work up revealed some concern for left bursitis. Pt initially had an episode of left axillary abscess in 02/2024 which was treated with I&D and ashort course of PO Abx. Her left shoulder pain continue to worsen to the point she presented to [facility] 05/2024. CT was concerning for left large subacromial/ subdeltoid and subcoracoid bursal fluid collection and concern for septic bursitis and osteomyelitis. Orthopedic surgery drained 145 cc of purulent fluid after initiation of IV Abx and cultures remain negative. Rheum: likely infectious arthritis IR, MSk, ortho, no further intervention Per ID c/w cefepime 2 gm and vancomycin 750 mg every Friday, , Friday for 4 weeks w EOT 06/21/2024. Follow up with ID and ortho. Prior to dc plan of care reviewed with the patient, PADMINI, JEAN and all in agreement, logistics confirmed. I was advised by SW that her IV Abx administration has been set up and there should be no issues inher getting her medication. This was confirmed multiple times. Consults: ID, Interventional Radiology, Orthopedic surgery Significant Diagnostic Studies: See hospital course Treatments: See hospital course Discharge Exam: Filed Vitals: 06/03/24 1300 06/03/24 1313 06/03/24 1316 06/03/24 1557 BP: 132/89 128/87 138/87 125/79 Pulse: 88 91 90 92 Resp: 16 14 16 16 Temp: 98.2 ??F (36.8 ??C) 98.6 ??F (37 ??C) TempSrc: Oral Oral SpO2: 98% 95% 96% Weight: Height: Physical Exam General: Alert. In no acute distress HEENT: EOMI, wet MM, Neck: Supple, No JVD Cardio: Normal rate and rhythm. No MRG appreciated Resp: CTAB Chest: atraumatic Abdomen: Soft, non-tender, non-distended Extremities: Radial and DP pulses 2+ bilaterally, no edema Skin: No rash or lesions noted Neuro: no focal deficits noted Psych: Normal Affect Disposition: care home facility Patient Instructions: Current Discharge Medication List UNREVIEWED MEDICATIONS Instructions Authorizing Provider bisacodyl 10 MG suppository Commonly known as: Dulcolax Insert 1 (one) suppository into the rectum once daily as needed for Constipation Fox Burleson MD polyethylene glycol 3350 17 g packet Commonly known as: Miralax Take 17 (seventeen) g by mouth once daily Fox Burleson MD START taking these medications Instructions Authorizing Provider acetaminophen 500 MG tablet Commonly known as: Tylenol Take 1 (one) tablet by mouth every 4 hours Maximum allowable Acetaminophen amount = 4 Grams (4000 mg) / 24 hours. Martine Morrissey MD cefepime 2 g 2,000 mg in 0.9% NaCl IV 0.9 % 50 mL 2,000 (two thousand) mg by Intravenous route every Friday, , & Friday for 18 days Lazarus administered with dialysis Franck Hennessy MD oxyCODONE (immediate release) 10 MG tablet Commonly known as: Roxicodone Take 1 (one) tablet by mouth every 4 hours as needed Franck Hennessy MD vancomycin (VANCOCIN) IV dose per pharmacy Commonly known as: Vancocin Use 750 mg as directed for 18 days To be administered with dialysis Franck Hennessy MD vancomycin 750 mg in 0.9% NaCl IV 0.9 % 250 mL 750 (seven hundred fifty) mg by Intravenous route every Friday, , & Friday for 18 days To be administered with dialysis Franck Hennessy MD CONTINUE taking these medications which have NOT CHANGED Instructions Authorizing Provider Alcohol Prep 70 % Quantity Dispensed: 100 Each USE ONE SWAB TO CLEAN SKIN FOUR TIMES DAILY BEFORE TESTING Amanda Georges MD amLODIPine 10 MG tablet Commonly known as: Norvasc Take 1 (one) tablet by mouth once daily Fox Burleson MD carvedilol 12.5 MG tablet Commonly known as: Coreg Take 1 (one) tablet by mouth 2 times daily with morning and evening meal Rosi Menard, TAPPING MACHINE OPERATOR 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 FeroSul 325 (65 Fe) MG tablet Generic drug: ferrous sulfate Take 1 (one) tablet by mouth daily with breakfast furosemide 40 MG tablet Commonly known as: Lasix Take 1 (one) tablet by mouth every Friday, Friday & Friday Willard Estrella gabapentin 100 MG capsule Commonly known as: Neurontin Take 1 (one) capsule by mouth 3 times daily insulin lispro 100 UNIT/ML pen Commonly known as: HumaLOG;ADMelog Inject 0 (zero) Units to 6 (six) Units subcutaneously 3 times daily with meals Joe Vargas MD lisinopril 20 MG tablet Commonly known as: Prinivil; Zestril Take 1 (one) tablet by mouth once daily Fox Burleson MD melatonin 3 MG tablet Take 1 (one) tablet by mouth nightly as needed for Insomnia Joe Vargas MD nystatin 861316 UNIT/GM powder Commonly known as: Mycostatin Apply to affected area 3 times daily oRsi Menard, TAPPING MACHINE OPERATOR 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 ONETOUCH DELICA PLUS 33G EXTRA FINE LANCET Quantity Dispensed: 100 Each USE ONE LANCET TO PRICK FINGER FOUR TIMES DAILY FOR BLOOD GLUCOSE TESTING MD Tyron Ying Reflect w/Device Kit Quantity Dispensed: 1 kit Use 1 kit 4 times daily USE METER TO CHECK BLOOD GLUCOSE FOUR TIMES DAILY Reasons: CALL [facility] [id number] MD Tyron Ying test strip Generic drug: blood glucose Quantity Dispensed: 100 strip USE ONE STRIP TO TEST BLOOD SUGAR FOUR TIMES DAILY mAanda Georges MD renal vitamin tablet Take 1 (one) tablet by mouth once daily Fox Burleson MD sennosides 8.6 MG tablet Commonly known as: Senokot Take 1 (one) tablet by mouth once daily Fox Burleson MD sevelamer carbonate 800 MG Commonly known as: Renvela Take 1 (one) tablet by mouth 3 times daily with meals Fox Burleson MD Activity: activity as tolerated Diet: Diabetic diet Wound Care: As directed Future Appointments Saturday June 22, 2024 8:00 AM (Arrive by 7:45 AM) Appointment with Roxanna Roth at [facility]ious Disease ([phone]) [address] [place] [phone] Signed: Franck Hennessy MD 06/03/2024 4:25 PM Total time spent on the encounter during the day of service including chart review, face to face encounter, documentation, communication and care coordination was 60 minutes. documented in this encounter Medications at Time [...] tablet by mouth once daily 02/28/2024 08/24/2024 bisacodyl (Dulcolax) 10 MG suppository Insert 1 (one) suppository into the rectum once daily as needed for Constipation 02/28/2024 09/01/20 carvedilol (Coreg) 12.5 MG tablet Take 1 (one) tablet by mouth 2 times daily with morning and evening meal 12/12/2022 08/24/2024 cefepime 2 g 2,000 mg in 0.9% NaCl IV 0.9 % 50 mL 2,000 (two thousand) mg by Intravenous route every Friday, , & Friday for 18 days To be administered with dialysis 06/03/2024 06/21/2024 FeroSul 325 (65 Fe) MG tablet Take [...] needed for Insomnia 05/09/2023 09/01/2024 nystatin (Mycostatin) [id number] UNIT/GM powder Apply to affected area 3 times daily 12/12/2022 08/09/2024 oxyCODONE, immediate release, (Roxicodone) 10 MG tabletIndications:Os [...] route every Friday, , & Friday for 18 days To be administered with dialysis 06/03/2024 06/21/2024 vancomycin, VANCOCIN, IV dose per pharmacy (Vancocin) Use 750 mg as directed for 18 days To be administered with dialysis 06/03/2024 06/21/2024 documented as of this encounter Progress Notes * Iqra Khan BSW - 06/03/2024 4:21 PM CDT Facility Transfer Note Level of Care: Retirement Facility Payor Source: Medicaid Facility Name: (include name of person confirming admission): Actual discharge provider: Danyelle Hendrix [facility] [place] Made Aware of Special Needs (if applicable): RN Call Report to:[phone] Fax D/C Orders to:[phone] Transportation (company and number): ? [phone] Certificate of Medical Necessity rationale: Infection VRE Hx, MRSA Hx, Osteomyelitis of left shoulder, unspecified type (HCC) Date/time of transfer: 06/03/2024 5:00pm Accepting MD and contact #: Dr. Mccullough Completed and Signed [id number] (if applicable): Physician signed: N/A Family/Other Notified of Transfer (name/phone): SW attempted to call family no contract. Authorization Skilled Care: Authorization for Transportation: Verified Qualifying Stay(Skilled Only, 3 consecutive days): NO Present hospitalization: Yes Past 30 days: No Patient discharged to SNF under Medicare SNF 3-day waiver? No Comments: Name/Phone number: ROVERTO Soliz * Saskia Long RN - 06/03/2024 4:08 PM CDT Called and discussed discharge with the manufacturing storeperson at [facility]. All questions answered. IV removed. To d/c by EMS to [facility]. No further needs. * Marvin Suarez RN - 06/03/2024 1:33 PM CDT 06/03/24 1316 Post Hemodialysis Patient Response to Treatment hd tx tolerated fairly Post Dialysis Patient Status Treatment Completed Ultrafiltration Amount (ml) 2000 Dialyzer Clearance Heavily streaked Amount of blood processed (Liters) 63.8 Post Hemodialysis Comment 2L removed goal met,VSS Problem: Hemodynamic Status/Cardiac Output Goal: Patient has stable vital signs and fluid balance Outcome: Progressing Problem: Fluid and Electrolyte Imbalance Goal: Fluid and electrolyte balance are achieved/maintained Outcome: Progressing Problem: Infection Goal: Signs and symptoms of infections are decreased or avoided Outcome: Progressing * Ai Garvin, PT - 06/03/2024 1:25 PM CDT [facility] Department of Physical Medicine & Rehabilitation Progress Note Patient: Gay Canales Med Record Number: [id number] Date of : 1990 Age: [age] year old 06/03/24 1325 Missed Visit Missed Visit Procedure Off Floor Patient off the floor Dialysis * Eli Colindres - 06/03/2024 12:23 PM CDT [facility] Nephrology Progress Note Date of Service: 05/26/2024 Gay Canales is a 33 year old female w/ PMH significant for HTN, HFpEF, 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 INTERVAL HISTORY: Seen in HD today, was having some abd pain and nausea, which per pt always happens unless she has zofran prior to HD, and she did not get this today. Paused HD, gave zofran, HD to resume once she feels better. ID recs IV abx EOT 06/21 for bursitis. Primary team working on discharge planning. Hospital Medications: 0.9% NaCl 3 mL Intracatheter q8h amLODIPine 10 mg Oral QDAY carvedilol 12.5 mg Oral BID WC cefepime 2 g Intravenous TUES, THUR & SAT epoetin 5,000 Units Intravenous DIALYSIS TUE, BLUE, & SAT furosemide 40 mg Oral FRI, WED AND FRI gabapentin 100 mg Oral TID heparin 5,000 Units Subcutaneous BID insulin aspart 0-6 Units Subcutaneous TID WC insulin glargine 8 Units Subcutaneous QDAY lisinopril 20 mg Oral QDAY polyethylene glycol 3350 17 g Oral QDAY renal vitamin 1 tablet Oral QDAY sennosides 17.2 mg Oral QDAY sevelamer carbonate 800 mg Oral TID WC vancomycin 750 mg Intravenous TUES, THUR & SAT vancomycin (VANCOCIN) IV dose per pharmacy Does not apply DIRECTED Physical Exam: Vitals: 06/03/24 1100 06/03/24 1120 06/03/24 1140 06/03/24 1200 BP: 119/79 110/76 122/80 98/84 Pulse: 89 89 88 85 Resp: 16 14 16 14 Temp: SpO2: Weight: Height: Intake/Output Summary (Last 24 hours) at 06/03/2024 1223 Last data filed at 06/02/2024 1800 Gross per 24 hour Intake 240 ml Output -- Net 240 ml Genera Appearance: NAD Neck:Supple Cardiovascular: Well perfused Respiratory: Normal WOB Abdomen: ND Extremities: No LE edema Dialysis access: RIJ pamacath c/d/i LABS: Recent Labs Component Name 06/03/24 00006/02/24 0552 06/01/24 0442 NA 138 136 135* POTASSIUM 5.7* 5.2* 5.0* CL 102 102 102 CO2 28 28 26 BUN 38* 33* 43* CREATININE 5.40* 4.74* 5.83* Recent Labs Component Name 06/03/24 0009 06/02/24 0552 06/01/24 0442 CALCIUM 9.3 8.9 8.3* PHOS 4.5 4.3 5.6* Recent Labs Component Name 02/25/24 0110 PTHINTACT 93.0* Recent Labs Component Name 06/03/24 0009 06/02/24 0552 06/01/24 0442 WBC 8.5 8.1 8.8 HGB 10.3* 10.4* 9.7* Recent Labs Component Name 06/02/24 0552 02/25/24 0110 IRON 42 23* TIBC 208* 149* FERRITIN 484* 833* ASSESSMENT Gay Canales is a 33 year old female w/ PMH significant for HTN, HFpEF, 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 ESRD on maintenance dialysis: Chronic kidney disease-mineral and bone disorder (CKD-MBD): Anemia of chronic kidney disease on dialysis: Hypertension: RECOMMENDATIONS Will continue maintenance HD TTS Ready to discharge from nephro perspective - can get vanc and cefe w/ OP HD. Please refer to the initial nephrology consult note for additional information. Eli Colindres, MS4 Associated attestation - Michael Holt MD - 06/03/2024 4:17 PM CDT I have personally seen and examined the patient, reviewed the presentation, course and lab with themedical student and agree with assessment and plan in the accompanying note and I arrive independently to the same conclusion. Michael Holt MD Nephrology Attending 06/03/2024 4:17 PM * Rafa Monterroso - 06/03/2024 11:48 AM CDT [facility] INTERNAL MEDICINE PROGRESS NOTE Patient: Gay Canales Sex: female Age: [age] year old Date of : 1990 Date of Admission: 05/23/2024 Date: 06/03/2024 LOS: 11 SUBJECTIVE Interval History: - No acute events overnight - Patient states that shoulder is feeling slightly better - Denies any fever, chills, shoulder swelling - Will not need powerline, can just use HD access for IV abx when she returns to Hospital Course: Gay Canales is a 33 year old female with PMH of HTN, HFpEF, chronic right heel ulcer. Erik BKA. ESRD on HD every Friday, , Friday who presents from OSH with concern for L shoulder septic arthritis. In February 2024 she had a left axillary abscess and underwent incision and drainage along with a short course of antibiotics. After that she was still having progressively worsening shoulder pain so she went to the ER. X Ray of L shoulder was negative but MRI left shoulder showed a large fluid collection consistent with infected bursitis. She was started on IV vanc and cefepime. Blood Cx were negative and purulent fluid was aspirated from the left shoulder. She was then transferred to [facility] for further care. Upon arrival to [facility] Rheumatology and hematology were consulted for inflammatory arthropathy and sickle cell disease respectively. Rheumatology without concerns for rheumatologic process at this time.Hemoglobin electrophoresis unremarkable for sickle cell disease or sickle cell trait. MRI showed infectious bursitis, orthopedic surgery without any acute surgical intervention. She will require 4 weeks of vanc and cefe thru 06/21. OBJECTIVE Vital Signs: Vitals: 06/03/24 1025 06/03/24 1040 06/03/24 1100 06/03/24 1120 BP: 150/95 111/78 119/79 110/76 Pulse: 87 90 89 89 Resp: 16 14 16 14 Temp: SpO2: Weight: Height: Vitals: Temp Min: 97.5 ??F (36.4 ??C) Max: 99.1 ??F (37.3 ??C), Pulse Min: 76 Max: 95, Resp Min: 14 Max: 20, BP Min: 78/57 Max: 171/95 Intake & Output: In: 720 [P.O.:720] Out: - Physical Exam Constitutional: Appearance: Normal appearance. HENT: Head: Normocephalic and atraumatic. Nose: Nose normal. Eyes: Conjunctiva/sclera: Conjunctivae normal. Cardiovascular: Rate and Rhythm: Normal rate and regular rhythm. Pulses: Normal pulses. Heart sounds: Normal heart sounds. Pulmonary: Effort: Pulmonary effort is normal. Breath sounds: Normal breath sounds. Abdominal: General: Bowel sounds are normal. Palpations: Abdomen is soft. Musculoskeletal: General: Normal range of motion. Cervical back: Normal range of motion. Comments: L Shoulder Pain Neurological: General: No focal deficit present. Mental Status: She is alert and oriented to person, place, and time. Psychiatric: Mood and Affect: Mood normal. Current Medications: Scheduled: 0.9% NaCl 3 mL Intracatheter q8h amLODIPine 10 mg Oral QDAY carvedilol 12.5 mg Oral BID WC cefepime 2 g Intravenous TUES, THUR & SAT epoetin 5,000 Units Intravenous DIALYSIS TUE, BLUE, & SAT furosemide 40 mg Oral FRI, FRI AND FRI gabapentin 100 mg Oral TID heparin 5,000 Units Subcutaneous BID insulin aspart 0-6 Units Subcutaneous TID insulin glargine 8 Units Subcutaneous QDAY lisinopril 20 mg Oral QDAY polyethylene glycol 3350 17 g Oral QDAY renal vitamin 1 tablet Oral QDAY sennosides 17.2 mg Oral QDAY sevelamer carbonate 800 mg Oral TID WC vancomycin 750 mg Intravenous TUES, THUR & SAT vancomycin (VANCOCIN) IV dose per pharmacy Does not apply DIRECTED Continuous: PRN: SALINE LOCK, INSERT AND MAINTAIN AND 0.9% NaCl AND 0.9% NaCl acetaminophen dextrose IV for hypoglycemia OR dextrose IV for hypoglycemia OR glucagon glucose (Diabetic Use) gel heparin HYDROmorphone ondansetron (disintegrating) OR ondansetron oxyCODONE (immediate release) OR oxyCODONE (immediate release) Significant Lab Results: CBC: Recent Labs Component Name 06/03/24 00006/02/2452 06/01/2444112/03/2224112/02/221954 WBC 8.5 8.1 8.8 - 42.0* HGB 10.3* 10.4* 9.7* - 8.9* HCT 33.8* 34.4* 32.6* - 28.3* PLATELET - - - - Occasional* PLTCOUNT 302 303 305 - 556* - = values in this interval not displayed. BMP: Recent Labs Component Name 06/03/24 00006/02/24 0552 06/01/2444112/02/22195408/25/22 0315 08/24/22 1404 08/24/22 0725 SODIUM - - - - 142 143 138 POTASSIUM 5.7* 5.2* 5.0* - 3.6 3.7 5.2* CHLORIDE - - - - 107 103 110* CO2 28 28 26 - 26 30 20* BUN 38* 33* 43* - 13 9 8 CREATININE 5.40* 4.74* 5.83* - 1.58* 1.43* 1.42* GLUCOSE 195* 159* 146* - 211* 145* 165* CALCIUM 9.3 8.9 8.3* - 7.9* 8.2* 7.8* - = values in this interval not displayed. Microbiology: None Imaging & Studies: Pertinent imaging reviewed ASSESSMENT & PLAN Osteomyelitis of left shoulder, unspecified type (HCC) (POA: Yes) ESRD (end stage renal disease) (HCC) (POA: Yes) Type 2 diabetes mellitus with diabetic polyneuropathy (HCC) (POA: Yes) #L shoulder pain # Infectious Bursitis - L Shoulder Xray 05/24: negative for osteo, fracture, or dislocation - L Shoulder MRI 05/28: Subacromial-subdeltoid bursitis - Patient states that pain in left shoulder continues to improve PLAN: - per ID recs: cont IV vancomycin and cefepime for 4 weeks, end date on (06/21/24) - cont pain control regimen of tylenol q6h prn, oxycodone 5-10 mg q4h prn and dilaudid [id number] prn - Will need weekly CBC w diff, CMP, ESR, CRP, vancomycin trough while on IV antibiotics. #T2DM #diabetic neuropathy - diabetic diet - lantus 8 units in the morning - 06/03/24 morning glucose of 195, 06/02/24 glucose at 159, 06/01/24 glucose at 146, glucose levels well controlled on current Lantus regimen, no need to change PLAN: - cont Lantus 8 units - accuchecks and SSI AC - gabapentin 100 mg TID #ESRD on HD - cont HD TTS - cont Sevelamer #Chronic R heel ulcer - hx IV abx in 2022 - wound care following, recs in their note - NORMA completed per RN plan of care, 1.1 WNL PLAN - Follow wound care recs. Change dressing daily and prn if soiled #HFpEF #HTN - daily weights - continue carvedilol, lasix, lisinopril, and amlodipine #JIAN - hold all iron supplementation due to concerns of active infection - CTM and transfuse if Hgb < 7 Code: Full Diet: Diabetic Electrolytes: Replete PRN PPx: Heparin Access: PIV Dispo: Outpatient to SNF, will cont Abx outpatient via dialysis access The above assessment and plan will be discussed with the attending. This note is not final until attested by attending physician. Patient seen and examined with Dr. Hennessy, Staff Physician Rafa Monterroso, MS3 [facility] 06/03/2024 11:48 AM Associated attestation - Franck Hennessy MD - 06/03/2024 1:19 PM CDT I have verified the documentation of the medical student including all history, exam, and medical decision-making details. I have personally performed a physical exam and have personally reviewed thedata to support my medical decision-making as outlined in the medical student???s note, and I arrive independently at the same conclusion. Discussed discharge on IDT rounds, working on getting OP Abx Total time spent on the encounter during the day of service including chart review, face to face encounter, documentation, communication and care coordination was 60 minutes. Date of service: 06/03/24 Franck Hennessy MD * Saskia Long RN - 06/03/2024 11:34 AM CDT Problem: Pain/Discomfort Goal: Patient exhibits [...] in the flowsheet documentation) Outcome: Progressing Problem: Tissue injury due to various disease processes Goal: Provide optimal wound healing environment Outcome: Progressing Problem: Tissue Injury due to Inadequate Arterial Perfusion Goal: Maintain Clean/Stable wound environment Outcome: Progressing Problem: Tissue Injury due to Venous Hypertension Goal: Maintain Infection Free Stable Wound Environment Outcome: Progressing Problem: Tissue Injury Due to Loss of Protective Sensation Goal: Protect Injured Tissue and Prevent Further Injury Outcome: Progressing Problem: Tissue Injury Due to External Forces of Pressure, Friction, and Shear Goal: Protect Skin from External Forces Outcome: Progressing Goal: Maintain and Improve Tissue Tolerance to Pressure Outcome: Progressing Problem: Skin Integrity Goal: Skin integrity is maintained or improved Outcome: Progressing * Tammy Nolan RN - 06/03/2024 9:35 AM CDT Images from the original note were not included. Case Management Progress Note [place] transfer Pt is new to my caseload Anticipated level of care at discharge: Half-Way - Skilled Facility Discharge Disposition : Return to [facility]. Per Kidney Navigator, IVABX will need to be ordered through outside provider and brought to clinic for administration . CM sent referral to [facility] for delivery. Austyn aware of referral [phone] Continued Care and Services - Admitted Since 05/23/2024 Destination Service Provider Request Status Selected Services Address Phone Fax Patient Preferred [facility] ([facility]) Pending - Request Sent N/A [address] [facility] [address] [phone] -- [facility] (formerly [facility]) Pending - Request Sent N/A [address] [facility] [address] -- Current Capacity last updated by Mago Vargas on 09/25/[address] [place] [address] - ACUTE REHAB Declined No Medicaid beds N/A [address] [facility] [address] [phone] -- Dialysis/Infusion Coordination complete. Service Provider Request Status Selected Services Address Phone Fax Patient Preferred [facility] Selected Dialysis [address] [facility] [id number] -- Home Medical Care Service Provider Request Status Selected Services Address Phone Fax Patient Preferred [facility] Pending - Request Sent N/A [address] [facility] [address] [phone] -- Selected Continued Care - Prior Encounters Includes continued care and service providers with selected services from prior encounters from 02/23/2024 to 06/03/2024 Discharged on 03/02/2024 Admission date: 02/22/2024 - Discharge disposition: Nursing Facility:Medicaid Dialysis/Infusion Service Provider Selected Services Address Phone Fax Patient Preferred [facility] Dialysis [address] [address] [phone] -- Basic Needs Assessment (BNA) Score: Transportation at Discharge: Equipment at Home: Equipment at Home: Wheelchair-Standard;Prosthesis (pt reports upcoming appt for new prosthesis d/t not fitting properly) Additional DME needed: Food Security: Within the past 12 months, you worried that your food would run out before you got the money to buymore.: Never true Within the past 12 months, the food you bought just didn't last and you didn't have money to get more.: Never true Name: Tammy Nolan RN * Iqra Khan BSW - 06/03/2024 9:09 AM CDT Care Coordination Progress Note Anticipated level of care at discharge: Half-Way - Skilled Facility: Anticipated level of care provider: [facility]): Anticipated Discharge Date: 06/02/24: Discharge Plan: Chart Review: IVABX until 06/20: vancomycin and cefepime DIALYSIS: [facility]. Per Kidney Navigator, IVABX will need to be ordered through outsideprovider and brought to clinic for administration . SW contacted [facility] and left a message confirming the patient once medically stable can return to the facility. Orientation Level: Oriented X4: Family Support (Name and Phone): Extended Emergency Contact Information Primary Emergency Contact: Silvia Resendiz Mobile Relation: Mother Foot Orthopedist needed? No Secondary Emergency Contact: GAYE BEAL Mobile Relation: Sister Foot Orthopedist needed? No Transportation at Discharge: : READMISSION RISK SCORE is 17 at 9:11 AM 06/03/2024.: Name: VERONIKA Soliz * Marvin Suarez RN - 06/03/2024 5:58 AM CDT Diagnosis (BOBBY/CRF): crf Non-Renal Diagnosis: sepsis Isolation No active isolations Does patient have signs or symptoms of respiratory infection(fever, cough, shortness of breath): no No Known Allergies Code Status: full Orientation Status: Ox4 On telemetry/Rhythm: no Oxygen: room air Given any medications: see mar Need for pain medications: no Blood pressure issues: no 130s last On any drips: no Is patient diabetic: yes Any labs to draw: no Any other procedures today: no Any concerns about this patient : no Any medications to be given with dialysis: EPO, heparin * Geronimo Burleson MD - 06/02/2024 10:21 PM CDT Plan of Care Update 06/02/2024 10:21 PM Care assumed from Jose Cruz MD. No changes to care plan as outlined in progress note from earlier today. Geronimo Burleson MD Hospitalist [facility] Signed: 06/02/2024 10:21 PM * Joy Stein RN - 06/02/2024 7:44 PM CDT Problem: Pain/Discomfort Goal: Patient exhibits [...] in the flowsheet documentation) Outcome: Progressing Problem: Tissue injury due to various disease processes Goal: Provide optimal wound healing environment Outcome: Progressing Problem: Tissue Injury due to Inadequate Arterial Perfusion Goal: Maintain Clean/Stable wound environment Outcome: Progressing Problem: Tissue Injury due to Venous Hypertension Goal: Maintain Infection Free Stable Wound Environment Outcome: Progressing Problem: Tissue Injury Due to Loss of Protective Sensation Goal: Protect Injured Tissue and Prevent Further Injury Outcome: Progressing Problem: Tissue Injury Due to External Forces of Pressure, Friction, and Shear Goal: Protect Skin from External Forces Outcome: Progressing Goal: Maintain and Improve Tissue Tolerance to Pressure Outcome: Progressing Problem: Nutrient: Increased nutrient needs (specify) Goal: Total intake will meet estimated nutrient needs Outcome: Progressing Problem: Skin Integrity Goal: Skin integrity is maintained or improved Outcome: Progressing Problem: Hemodynamic Status/Cardiac Output Goal: Patient has stable vital signs and fluid balance Outcome: Progressing Problem: Fluid and Electrolyte Imbalance Goal: Fluid and electrolyte balance are achieved/maintained Outcome: Progressing Problem: Infection Goal: Signs and symptoms of infections are decreased or avoided Outcome: Progressing Problem: Transfers Goal: STG - Patient will transfer sit to and from stand Outcome: Progressing Problem: Balance Goal: LTG - Patient will demonstrate Intervention to enhance balance for safe completion of daily activities Outcome: Progressing * Glenroy Henning MD - 06/02/2024 5:56 PM CDT [facility] Transfer Checklist: Reasons for Transfer to [facility] Figuring out IV abx after discharge Brief Hospital Course Per chart review with edits: Patient is a 33F with PMHx of T2DM, HTN, HFpEF, chronic right heel ulcer/osteomyelitis, prior L BKA, ESRD on HD TTS, possible sickle cell disease who presents from OSH with concerns of L shoulder septic arthritis. At OSH orthopedic surgery aspirated purulent fluid from her L shoulder. She was transferred to [facility] from further evaluation of her L shoulder. ID and orthopedic surgery was consulted on arrival. She was started on IC vanc and cefepime. Rheumatology and hematology were consulted for inflammatory arthropathy and sickle cell disease respectively. Rheumatology without concerns for rheumatologic process at this time. Hemoglobin electrophoresis unremarkable for sickle cell disease or sickle cell trait. MRI showed infectious bursitis, orthopedic surgery without any acute surgical intervention. She will require 4 weeks of vanc and cefe thru 06/21. Pertinent PMH: PMHx of T2DM, HTN, HFpEF, chronic right heel ulcer/osteomyelitis, prior L BKA, ESRD on HD TTS Nutritional Requirements (Dysphagia Diet / TPN / Tube Feed) NA Home Meds Being Held: NA ABx Indications/End Date: IV Vanc and cefepime thru 06/21 Consult Teams Past and Present: ID, Ortho Pending Workup: None Things to Watch: None Disposition Place and Date: Came from [facility]. Will also need to go to rehab once her prosthetic leg arrives. To Address Prior to DC: Outpt IV abx location. Either outpt IV abx with outpt HD or [facility] outpt abx with powerline per nephro Follow Up Appointments: (Already arranged and need to arranged) ID 06/22 [address] after DC (F/U etc): ID Wound care instructions (if applicable) Wound on R heel. Daily dressing changes. Look at wound carenote Please add PRN Narcan order if appropriate for this patient NA Associated attestation - Rob Cruz MD - 06/02/2024 6:15 PM CDT I have seen and examined the patient with the resident and I agree with the findings and plan of care as documented by the resident. In addition: - patient can likely return to prior assisted - however, dialysis center is stating that they can't provide antibiotics (per manager of case managementmanager hydraulic). If this continues to be the case, the patient will need power line placed. - will need continued monitoring of wound on heel. Date of Service: 06/02/2024 Rob Cruz MD * Niecy Benedict RN - 06/02/2024 4:03 PM CDT Problem: Pain/Discomfort Goal: Patient exhibits [...] in the flowsheet documentation) Outcome: Progressing Problem: Tissue injury due to various disease processes Goal: Provide optimal wound healing environment Outcome: Progressing Problem: Tissue Injury due to Inadequate Arterial Perfusion Goal: Maintain Clean/Stable wound environment Outcome: Progressing Problem: Tissue Injury due to Venous Hypertension Goal: Maintain Infection Free Stable Wound Environment Outcome: Progressing Problem: Tissue Injury Due to Loss of Protective Sensation Goal: Protect Injured Tissue and Prevent Further Injury Outcome: Progressing Problem: Skin Integrity Goal: Skin integrity is maintained or improved Outcome: Progressing Problem: Hemodynamic Status/Cardiac Output Goal: Patient has stable vital signs and fluid balance Outcome: Progressing Problem: Fluid and Electrolyte Imbalance Goal: Fluid and electrolyte balance are achieved/maintained Outcome: Progressing * Glenroy Henning MD - 06/02/2024 3:49 PM CDT [facility] INTERNAL MEDICINE PROGRESS NOTE Patient: Gay Canales Sex: female Age: [age] year old Date of : 1990 Date of Admission: 05/23/2024 Date: 06/02/2024 LOS: 10 SUBJECTIVE Interval History: No acute events overnight. Patient denies significant pain or swelling of L shoulder today. She denies fever, chills, nausea, vomiting. Hospital Course: Per chart review with edits: Patient is a 33F with PMHx of T2DM, HTN, HFpEF, chronic right heel ulcer/osteomyelitis, prior L BKA, ESRD on HD TTS, possible sickle cell disease who presents from OSH with concerns of L shoulder septic arthritis. At OSH orthopedic surgery aspirated purulent fluid from her L shoulder. She was transferred to [facility] from further evaluation of her L shoulder. ID and orthopedic surgery was consulted on arrival. She was started on IC vanc and cefepime. Rheumatology and hematology were consulted for inflammatory arthropathy and sickle cell disease respectively. Rheumatology without concerns for rheumatologic process at this time. Hemoglobin electrophoresis unremarkable for sickle cell disease or sickle cell trait. MRI showed infectious bursitis, orthopedic surgery without any acute surgical intervention. She will require 4 weeks of vanc and cefe thru 06/21. OBJECTIVE Vital Signs: Vitals: 06/01/24 1520 07/30/203406/02/24 0820 06/02/24 1133 BP: 127/88 112/74 135/94 125/71 Pulse: 89 91 92 90 Resp: Temp: 98.2 ??F (36.8 ??C) 98.2 ??F (36.8 ??C) 98.5 ??F (36.9 ??C) 98.3 ??F (36.8 ??C) SpO2: 95% 94% 98% 91% Weight: Height: Temp Min: 97.5 ??F (36.4 ??C) Max: 99.1 ??F (37.3 ??C), Pulse Min: 76 Max: 95, Resp Min: 14 Max: 20, BP Min: 78/57 Max: 171/95 Intake & Output: In: 1342 [P.O.:1292; I.V.:50] Out: 3004 Physical Exam: Physical Exam HENT: Head: Normocephalic and atraumatic. Eyes: General: No scleral icterus. Cardiovascular: Rate and Rhythm: Normal rate and regular rhythm. Heart sounds: No murmur heard. No friction rub. No gallop. Pulmonary: Breath sounds: No wheezing, rhonchi or rales. Abdominal: Tenderness: There is no abdominal tenderness. Musculoskeletal: Right lower leg: No edema. Left lower leg: No edema. Comments: Painful L shoulder ROM Neurological: General: No focal deficit present. Mental Status: She is oriented to person, place, and time. Current Medications: Scheduled: 0.9% NaCl 3 mL Intracatheter q8h amLODIPine 10 mg Oral QDAY carvedilol 12.5 mg Oral BID WC cefepime 2 g Intravenous TUES, THUR & SAT epoetin 5,000 Units Intravenous DIALYSIS TUE, BLUE, & SAT furosemide 40 mg Oral MON, WED AND FRI gabapentin 100 mg Oral TID heparin 5,000 Units Subcutaneous BID insulin aspart 0-12 Units Subcutaneous TID WC insulin glargine 8 Units Subcutaneous QDAY lisinopril 20 mg Oral QDAY polyethylene glycol 3350 17 g Oral QDAY renal vitamin 1 tablet Oral QDAY sennosides 17.2 mg Oral QDAY sevelamer carbonate 800 mg Oral TID WC vancomycin 750 mg Intravenous TUES, THUR & SAT vancomycin (VANCOCIN) IV dose per pharmacy Does not apply DIRECTED Continuous: PRN: SALINE LOCK, INSERT AND MAINTAIN AND 0.9% NaCl AND 0.9% NaCl acetaminophen dextrose IV for hypoglycemia OR dextrose IV for hypoglycemia OR glucagon glucose (Diabetic Use) gel heparin HYDROmorphone ondansetron (disintegrating) OR ondansetron oxyCODONE (immediate release) OR oxyCODONE (immediate release) Significant Lab Results: reviewed Microbiology: reviewed Imaging & Studies: reviewed ASSESSMENT & PLAN Osteomyelitis of left shoulder, unspecified type (HCC) (POA: Yes) ESRD (end stage renal disease) (HCC) (POA: Yes) Type 2 diabetes mellitus with diabetic polyneuropathy (HCC) (POA: Yes) #L shoulder pain # infectious bursitis - L Shoulder Xray 05/24: negative for osteo, fracture, or dislocation - L Shoulder MRI 05/28: Subacromial-subdeltoid bursitis PLAN - on IV cefepime and vanc; cefe dosed per nephrology note (2g after HD) - pain management tylenol q6h prn, tiered oxy 5-10 mg q4h prn and dilaudid breakthrough q6hprn - ID consulted: -Plan for 4 weeks of IV abx from last date of L shoulder aspiration(05/24/2024- EOT 06/21/2024). -Will need bacterial culture and gram stain, anaerobic cultures with bursitis drainage . -Discharge abx: IV Vanc - pharmacy dosing with HD and IV cefepime with HD (2g, 2g, 2g on HD days). -Will need weekly CBC w diff, CMP, ESR, CRP, vancomycin trough while on IV antibiotics. - Ortho Consulted: Revisited case on 06/01. 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 Given negative cultures and low likelihood of infection, recommend against abx therapyfor L shouldr bursitis and effusions. - Open surgical intervention not recommended. - If further evaluation desired, could obtain IR guided aspiration. #sickle cell disease vs trait - hemoglobin electrophoresis unremarkable for sickle cell disease and sickle cell trait #T2DM #diabetic neuropathy - diabetic diet - lantus 8u - accuchecks and SSI AC - gabapentin 100 mg TID #chronic R heel ulcer - hx IV abx in 2022 - wound care following, recs in their note - NORMA completed per RN plan of care, 1.1 WNL PLAN - Follow wound care recs from 05/25. Change dressing daily and prn if soiled #ESRD on HD - nephrology following - continue sevelemer #HFpEF #HTN - daily weights - continue carvedilol, lasix, lisinopril, and amlodipine #JIAN - hold all iron supplementation due to concerns of active infection - CTM and transfuse if Hgb < 7 Code: FULL Diet: diabetic Electrolytes: Replete PRN PPx: heparin Access: PIV Dispo: Outpt abx thru assisted (labelde) would require powerline vs oupt abx thru outpt dialysis The above assessment and plan will be discussed with the attending. This note is not final until attested by attending physician. Glenroy Henning MD Internal Medicine Resident [facility] 06/02/2024 3:53 PM Associated attestation - Rob Cruz MD - 06/02/2024 6:17 PM CDT I have seen and examined the patient with the resident and I agree with the findings and plan of care as documented by the resident. In addition: - working to ensure patient will be able to antibiotics arranged as outpatient - discussed with nursing to upload heel images. 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 INTERVAL HISTORY: Today, pt doing well, tolerated dialysis well yesterday with 3L UF. ID recs IV abx EOT 06/21 for bursitis. Hospital Medications: 0.9% NaCl 3 mL Intracatheter q8h amLODIPine 10 mg Oral QDAY carvedilol 12.5 mg Oral BID cefepime 2 g Intravenous TU, THUR & SAT epoetin 5,000 Units Intravenous DIALYSIS TUE, BLUE, & SAT furosemide 40 mg Oral FRI, FRI AND FRI gabapentin 100 mg Oral TID heparin 5,000 Units Subcutaneous BID insulin aspart 0-12 Units Subcutaneous TID insulin glargine 8 Units Subcutaneous QDAY lisinopril 20 mg Oral QDAY polyethylene glycol 3350 17 g Oral QDAY renal vitamin 1 tablet Oral QDAY sennosides 17.2 mg Oral QDAY sevelamer carbonate 800 mg Oral TID vancomycin 750 mg Intravenous TUES, THUR & SAT vancomycin (VANCOCIN) IV dose per pharmacy Does not apply DIRECTED Physical Exam: Vitals: 06/01/24 1520 06/01/24 2035 06/02/24 0820 06/02/24 1133 BP: 127/88 112/74 135/94 125/71 Pulse: 89 91 92 90 Resp: Temp: 98.2 ??F (36.8 ??C) 98.2 ??F (36.8 ??C) 98.5 ??F (36.9 ??C) 98.3 ??F (36.8 ??C) SpO2: 95% 94% 98% 91% Weight: Height: Intake/Output Summary (Last 24 hours) at 06/02/2024 1217 Last data filed at 06/02/2024 0800 Gross per 24 hour Intake 1010 ml Output 3004 ml Net -1994 ml Genera Appearance: NAD Neck:Supple Cardiovascular: Well perfused Respiratory: Normal WOB Abdomen: ND Extremities: No LE edema Dialysis access: TOOTIE rodriguez c/d/i LABS: Recent Labs Component Name 06/02/24 0552 06/01/24 0442 05/31/24 0605 NA 136 135* 136 POTASSIUM 5.2* 5.0* 4.6* CL 102 102 101 CO2 28 26 29 BUN 33* 43* 37* CREATININE 4.74* 5.83* 5.07* Recent Labs Component Name 06/02/24 0552 06/01/24 0442 05/31/24 0605 CALCIUM 8.9 8.3* 8.2* PHOS 4.3 5.6* 5.4* Recent Labs Component Name 02/25/24 0110 PTHINTACT 93.0* Recent Labs Component Name 06/02/24 0552 06/01/24 0442 05/31/24 0605 WBC 8.1 8.8 8.9 HGB 10.4* 9.7* 10.1* Recent Labs Component Name 06/02/24 0552 02/25/24 0110 IRON 42 23* TIBC 208* 149* FERRITIN 484* 833* ASSESSMENT Gay Canales is a 33 year old female w/ PMH significant for HTN, HFpEF, 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 ESRD on maintenance dialysis: Chronic kidney disease-mineral and bone disorder (CKD-MBD): Anemia of chronic kidney disease on dialysis: Hypertension: RECOMMENDATIONS Will continue maintenance HD TTS Ready to discharge from nephro perspective - can get vanc and cefe w/ OP HD. Please refer to the initial nephrology consult note for additional information. Eli Colindres, MS4 Associated attestation - Michael Holt MD - 06/02/2024 2:54 PM CDT I have personally seen and examined the patient, reviewed the presentation, course and lab with themedical student and agree with assessment and plan in the accompanying note and I arrive independently to the same conclusion with modification. Patient ok for discharge from nephrology stand point. If plan to discharge back to assisted, we recommend placing powerline. We will appreciate update from the primary team so we can arrange line placement with Interventional nephrology. Michael Holt MD Nephrology Attending 06/02/2024 2:39 PM * Zach Martin MSW - 06/02/2024 12:00 PM CDT Images from the original note were not included. DC Plan: Prior to admission level of care: Half-Way - Skilled Facility Prior to admit provider: [facility] ([facility]) Anticipated level of care at discharge: Half-Way - Skilled Facility Anticipated level of care provider: [facility] ([facility]) Discharge Plan: SENIOR CARE RETURN [facility] [place] COMBINATION SAW OPERATOR met with patient at bedside for discharge planning IVABX until 06/20: vancomycin and cefepime DIALYSIS: [facility]. Per Kidney Navigator, IVABX will need to be ordered through outsideprovider and brought to clinic for administration DISPOSITION: Patient stated desire to return to previous SNF at discharge vs sister's home/home health. Rehab: Loc--no Medicaid beds. Patient is to wait until new prosthesis arrives before rehab referral (stated fitting appointment is 06/20) PLAN: Patient is to return to [facility] with OPHD resumption and antibiotic coordination VERONIKA Bailey 06/02/2024 12:12 PM Orientation Level: Oriented X4: Name: VERONIKA Bailey, VERONIKA Continued Care and Services - Admitted Since 05/23/2024 Destination Service Provider Request Status Selected Services Address Phone Fax Patient Preferred [facility] (formerly [facility]) Pending - Request Sent N/A [address] [facility] [phone] -- Dialysis/Infusion Coordination complete. Service Provider Request Status Selected Services Address Phone Fax Patient Preferred [facility] Selected Dialysis [address] [address] -- * Roxanna Roth PA-C - 06/02/2024 11:36 AM CDT [facility] Infectious Diseases Inpatient Progress Note Patient Name: Gay Canales 1990 Room: [facility]/ Date of Admission: 05/23/2024 Date of Service: 06/02/2024 Primary Care Physician: CHERISE MARCELO PA-C Attending Physician: Rob Cruz MD Reason for Infectious Disease Consultation Left shoulder septic bursitis / osteomyelitis, antibiotic recommendations IMPRESSION Left shoulder septic bursitis / osteomyelitis History of MRSA bacteremia History of left pectoral abscess s/p I&D and antibiotic treatment, EOT 04/07/2024 Chronic right heel ulcer with chronic osteomyelitis DM2 ESRD on HD RECOMMENDATIONS - Continue IV vancomycin, pharmacy dosed - Continue IV cefepime 2g, 2g, 2g dosed on HD days - Plan for 4 weeks of IV antibiotics from last date of left shoulder aspiration (05/24/2024 - EOT 06/21/2024). - Appreciate orthopedic recommendations. At this time unable to rule out septic arthritis as a cause of shoulder pain due to patient being on IV antibiotics for 6 days prior to initial shoulder aspiration at OSH. Will continue with 4 weeks of IV antibiotics dosed with dialysis and follow up closelyin ID clinic. - Please obtain CBC w diff, CMP, ESR, CRP, vancomycin trough at least weekly while on IV antibiotics. - As part of routine screening, HCV antibody with reflex to HCV RNA quantitative (universally recommended per CDC guidelines) Note: Discussed with patient that concerned source of recurrent infections could be seeding from her chronic right foot wound to other joints. NORMA on right leg 1.1 which is good for wound healing. Patient is higher risk for infection with ESRD and DM2 as these cause immunosuppression. There is alsoconcern that patient has an underlying inflammatory arthropathy with last admission right shoulder a spiration not concerning for septic arthritis and opposite shoulder septic arthritis this admission. Appreciate recs from hem/onc and rheumatology. Primary team updated with above recommendations. ..When patient is cleared for discharge, patient will be discharged on: IV vancomycin - pharmacy dosing with HD IV cefepime with HD (2g, 2g, 2g on HD days). Duration of therapy is 4 weeks with EOT 06/21/2024 Obtain weekly Cbc with Diff, CMP, CRP, ESR, and vancomycin trough Fax weekly lab results to [facility] clinic on Fax no [phone] (Attn: Roxanna Roht PA-C and Dr. Carlson) If there any concerns, please call [facility] infectious disease clinic: phone Follow-up in [facility] clinic on: 06/22/2024 at 8 AM [facility] clinic [address] [place] [address] Clinic phone [phone] Clinic fax [phone] Today ID will sign off. Thank you for allowing us to participate in the care of this patient. Please call the Ortho ID pager [phone] with any questions. DISCUSSION Gay Canales is a 33 year old female with PMH of blindness, T2DM, HTN, chronic HFpEF, chronic right heel ulcer/osteomyelitis(tx only with IV abx) , prior left BKA, ESRD on HD (//Fri) and possible sickle cell disease, permanent residence at [facility]. Patient presented to [facility] on 05/23/2024 as OSH transfer for concerns of left shoulder septic bursitis / osteomyelitis. Left shoulder septic bursitis / osteomyelitis - 05/20/2024: Bcx no growth - 05/21/2024: S/p OSH left shoulder aspiration, culture no growth - 05/24/2024: S/p left shoulder aspiration. Synovial fluid with 6k nucleated cells, 83% neutrophils,610,000 RBCs. ?decreased nucleated cells due to antibiotic admin since 05/15/2024 vs. Inflammatory arthropathy. - 05/28/2024: MRI left shoulder consistent with septic bursitis (subacromial subdeltoid), no osteomyelitis - Per rheumatology, no signs of inflammatory arthropathy - On IV vancomycin / IV cefepime History of MRSA bacteremia History of left pectoral abscess s/p I&D and antibiotic treatment - Patient at increased risk for recurrent MRSA infection Chronic right heel ulcer with chronic osteomyelitis - does not appear infected at this time - No indication to treat chronic osteo with stable wound - NORMA 1.1 per RN plan of care note 05/29/2024. Clinically not PAD in RLE. ?Sickle Cell - appreciate hematology input DM2 - A1C 6.5 on 02/23/2024 - Continue care per primary team ESRD on HD - Followed by nephrology - Need right IJ permacath dressing evaluated by nephrology due to itching CDC Screening - HIV negative 02/24/2024 - Recommend Hep C testing QTC: Not available Renal Function: Estimated Creatinine Clearance: 22 mL/min (A) (by C-G formula based on SCr of 4.74 mg/dL (H)). Hardware: None Thank you for allowing us to participate in the care of this patient. We will continue to follow and monitor with you closely. Please call the Ortho ID pager [phone] with any questions. I spent 35 mins in the care of this patient to include chart review, coordination of care, and patient interview / examination / education independent from the attending physician. I spent an additional 10 mins in discussion with attending physician Dr. Ramirez regarding patient case. Patient case discussed with ID attending. JESSICA Sorensen, PAJose EnriqueC Division of Infectious Diseases Contact: [facility] Secure Chat preferred ID Clinic ID Clinic Subjective History of Present Illness: Gay Canales is a 33 year old female with PMH of blindness, T2DM, HTN, chronic HFpEF, chronic right heel ulcer/osteomyelitis(tx only with IV abx) , prior left BKA, ESRD on HD (/Fri) and possible sickle cell disease, permanent residence at [facility]. Patient presented to [facility] on 05/23/2024 as OSH transfer for concerns of left shoulder septic bursitis / osteomyelitis. Per chart review and clarification with patient, she had a left axillary abscess in February 2024 which was treated with I&D and a short course of PO antibiotics. She has had progressive worsening of her shoulder pain. Presented to OSH (Loc) on 05/15/2024. CT left shoulder showed large complex subacromial / subdeltoid and subcoracoid bursal fluid collection associated with osteolysis at the coracoid process and under surface of the acromion consistent with septic bursitisand osteomyelitis. Patient started on IV vancomycin and cefepime at OSH. OSH records received with blood cultures from 05/20 with no growth. Orthopedic surgery at OSH aspirated 145 cc purulent / serosanguineous fluid from left shoulder on 05/21/2024. Gram stain from OSH shows no organisms and no culture growth to date. Patient transferred to [facility] on 05/23/2024 for further evaluation. Labs at transfer with CRP 1.4, ESR 114, WBC 8.9, Alk phos 170. Otherwise stable. Patient has right IJ HD permacath. She reports that it is open to air most of the time secondary toitching around the dressing. She has a chronic wound on her right heel which is not painful and has not worsened since she had an I&D in 04/2023 and completed IV antibiotics for osteomyelitis. Previous [facility] Hx: 04/26/2023 -05/09/2023: Presented for for foot [...] transitioned to PO linezolid to complete treatment. ID consulted for left shoulder septic bursitis osteomyelitis. Hospital Course: 05/24/2024: Ortho left shoulder aspiration: Synovial fluid 6k nucleated cells, 83% neutrophils, 610,000 RBC. Cultures in progress, no organisms on gram stain. 05/28/2024: MRI left shoulder consistent with subacromial subdeltoid septic bursitis. No osteomyelitis noted. 05/29/2024: NORMA 1.1 right lower extremity. No PAD. Today: : No intervention per IR / Ortho / [facility] IR. Patient with ongoing left shoulder pain but improved, 03/12 today. No fevers, chills, nausea, vomiting, diarrhea, rashes, itching. Tolerating antibiotics. WBC 8.1. Renal function stable on HD. Afebrile. Medical History Past Medical History: Diagnosis Date Essential (primary) hypertension Heart failure (HCC) Type 2 diabetes mellitus without complications (HCC) Surgical History Past Surgical History: Procedure Laterality Date LEG AMPUTATION ABOVE KNEE Left 12/05/2022 Left; AMPUTATION ABOVE LEFT KNEE Leg Amputation, Below Knee Left 12/02/2022 Left; LEFT ANKLE DISARTICULATION LEVEL 2 @ 2220 Social History Living situation: Permanent resident at [facility] HIV status: Negative 02/24/2024 Social History Socioeconomic History Marital status: Single Tobacco Use Smoking status: Former Types: Cigarettes Start date: 2010 Smokeless tobacco: Never Tobacco comments: Quit 4-5 months after starting Vaping Use Vaping Use: Never used Substance and Sexual Activity Alcohol use: Not Currently Comment: Occassionally Drug use: Not Currently Types: Marijuana Comment: At age 20 for 4-5 months Sexual activity: Not Currently Immunizations: Immunization History Administered Date(s) Administered DTP, [...] Review of Systems Review of Systems Constitutional: Negative. HENT: Negative. Eyes: Blindness Respiratory: Negative. Cardiovascular: Negative. Gastrointestinal: Negative. Genitourinary: Negative. Musculoskeletal: Left shoulder pain S/p Left AKA Right heel ulcer, chronic Skin: Itching with right HD IJ dressing Neurological: Negative. Endo/Heme/Allergies: Negative. Psychiatric/Behavioral: Negative. Allergies No Known Allergies Antimicrobial History Current Antibiotics IV vancomycin (05/24/2024 - present) IV cefepime (05/24/2024 - present) Prior Antibiotics At [facility] Prior Antibiotics at OSH PO Linezolid (Completed 04/2024) Home Medications Prior to Admission medications Medication Sig Start Date End Date Taking? Authorizing Provider acetaminophen (Tylenol) 500 MG tablet Take 1 (one) tablet by mouth every 4 hours Maximum allowable Acetaminophen amount = 4 Grams (4000 mg) / 24 hours. Patient not taking: Reported on 05/23/2024 03/02/24 Martine Morrissey MD Alcohol Swabs (Alcohol [...] for Constipation Patient not taking: Reported on 05/23/2024 02/28/24 Geronimo Burleson MD blood glucose (OneTouch Verio) test strip USE ONE STRIP TO TEST BLOOD SUGAR FOUR TIMES DAILY 12/12/22Amanda Georges MD Blood Glucose Monitoring Suppl (OneTouch Verio Reflect) w/Device KIT Use 1 kit 4 times daily USE METER TO CHECK BLOOD GLUCOSE FOUR TIMES DAILY Reasons: CALL [facility] WHEN DELIVERING X4364 12/12/22 Amanda Georges MD carvedilol (Coreg) 12.5 MG tablet Take 1 (one) tablet by mouth 2 times daily with morning and evening meal 12/12/22 Yes Rosi Menard V., TAPPING MACHINE OPERATOR 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 FeroSul 325 (65 Fe) MG tablet Take [...] 05/09/23 Yes Joe Vargas MD nystatin (Mycostatin) 212126 UNIT/GM powder Apply to affected area 3 times daily 12/12/22 Yes Rosi Menard APRN-LEEROY polyethylene glycol 3350 (Miralax) 17 g packet [...] with meals 02/28/24 Yes Geronimo Burleson MD Objective Vitals BP 135/94 (BP Location: Right arm, Patient Position: Sitting) Pulse 92 Temp 98.5 ??F (36.9 ??C)(Oral) Resp 19 Ht 1.829 m (6') Wt 93.4 kg (205 lb 14.6 oz) SpO2 98% Temp (24hrs), Av.3 ??F (36.8 ??C), Min:98.2 ??F (36.8 ??C), Max:98.5 ??F (36.9 ??C) Physical Exam PHYSICAL EXAM General: Alert, no distress, not toxic appearing, Laying in bed sleeping but easy to awaken, appears comfortable. Head: Normocephalic, atraumatic EENT: Patient blind. Left eye with subconjunctival hemorrhage (chronic). Nose Normal. Lungs: Breathing comfortably and in no acute distress. Skin: No rashes. Neurologic: Alert and oriented x 3, moving all extremities Psychiatry: Appropriate mood/affect Lines: right HD IJ. PIV left posterior hand Lab Review CBC: Recent Labs Component Name 06/02/24 0552 06/01/24 0442 05/31/24 0605 WBC 8.1 8.8 8.9 RBC 3.55* 3.29* 3.41* HGB 10.4* 9.7* 10.1* HCT 34.4* 32.6* 33.5* MCV 96.9 99.1* 98.2* BMP: Recent Labs Component Name 06/02/24 0552 06/01/24 0442 05/31/24 0605 05/25/24 0643 05/24/24 0625 02/23/24 0737 02/22/24221306/10/23 0939 NA 136 135* 136 - 139 - 136 143 CL 102 102 101 - 104 - 100 110* CO2 28 26 29 - 26 - 26 25 BUN 33* 43* 37* - 33* - 21 8 CREATININE 4.74* 5.83* 5.07* - 3.64* - 4.88* 1.96* ALB 2.1* 1.9* 2.0* - 1.9* - 1.5* 1.5* PROT - - - - 7.2 - 8.1 5.8* - = values in this interval not displayed. estimated creatinine clearance is 22 mL/min (A) (by C-G formula based on SCr of 4.74 mg/dL (H)). LFTs: Recent Labs Component Name [...] not displayed. Coagulation: Recent Labs Component Name 02/22/24221304/26/23 0629 PT 14.6 16.3* INR 1.2 1.3 PTT - 29.8 ESR: Recent Labs Component Name 05/24/24 0548 02/23/24 0737 06/10/23 0939 ESR 114* 116* 57* CRP: Recent Labs Component Name 05/24/24 0625 02/23/24 0737 06/10/23 0939 CRP 1.4* 8.3* <0.5 CK: No results for input(s): CK in the last 99031 hours. Microbiology, Imaging and other diagnostic tests MICROBIOLOGY: Blood culture: 05/20/2024: OSH No growth Aspiration Left shoulder OSH 05/21/2024: Gram stain (no organisms, many WBCs); Culture no growth Aspiration Left shoulder - [facility] 05/24/2024: - Culture: No growth, no organisms on gram stain. - Synovial fluid Latest Reference Range & Units 05/24/24 15:05 Source Fluid Synovial Synovial Color Fluid RED Appearance Fluid BLOODY Total Nucleated Cells Fluid <=200 x10E6/L 6,498 (H) Neutrophils % Fluid % 83 Lymphocyte % Fluid % 9 Macrophage % Fluid % 8 Cells Counted Fluid x10E6/L 100 RBC Fluid Reference Range Not Established x10E6/L 610,000 (H): Data is abnormally high Other Serologies: HISTOPATHOLOGY: None at this admission IMAGING & PROCEDURES: Pertinent images independently reviewed; report in chart MRI left shoulder wwo contrast (05/28/2024): Impression: Distended distal subacromial subdeltoid bursa with [...] of the shoulder joint or acromioclavicular joint. XR Left shoulder (05/24/2024): IMPRESSION: Suggestion of a lucency projecting approximately [...] osteomyelitis nor evidence of fracture nor dislocation. Associated attestation - Yovany Ramirez MD - 06/02/2024 8:26 PM CDT 33 year old female with PMH of ESRD on hemodialysis TTS via R IJ Permcath (HD initiated 7 months ago per patient), HTN, HFpEF, T2DM, blindness, chronic right heel non healing wound with osteomyelitis, s/p left BKA, presenting on 05/23/2024 as an OSH transfer for management of osteomyelitis of left shoulder. Left shoulder subacromial-subdeltoid bursitis: infectious bursitis, vs inflammatory arthritides related (such as RA), vs metabolic disorder related (such as diabetes, etc.), vs osteoarthritis related: 05/28/2024 MRI Left Shoulder findings consistent with bursitis. Etiology still unclear. In terms of infectious related etiologies, could be from partially treated infection, or re-infection potentially from (1) chronic right heel non healing wound; (2) R IJ Permcath related infection. Non infection related concerning as well. Appreciate Rheumatology and Medicine team further input. 05/24/2024 aspiration of the left shoulder with Ortho, 50 mL of bloody and purulent fluid was aspirated (was on IV vancomycin and cefepime at OSH), fluid total nucleated cells only ~6500 (not typicalinfectious picture, but this was after several days of Abx); Gram stain no organisms seen, culturesno growth. Continue IV vancomycin and IV cefepime for now. Can continue empiric Abx for a duration up to ~4 weeks and monitor response to treatment. Follow further plan from orthopedic surgery. History of MRSA bacteremia (02/16/2024) c/b left axillary abscess s/p I&D and a short course ofPO antibiotics; left pectoralis major abscesses, and left shoulder septic arthritis and osteomyelitis: S/p abscess near left shoulder aspiration (11 mL pus) on 02/25/2024, Gram stain with no organisms and culture negative. Was treated with IV vancomycin ->PO linezolid, 6 weeks total through 04/06/2024. Image (CT or MRI) was not obtained at the end of 6 weeks of antibiotics to confirm resolution of the abscesses. Will treat with 4 weeks of IV Vancomycin and cefepime for 4 weeks with EOT 06/21/2024 Chronic right heel non healing wound with chronic osteomyelitis: NORMA right lower extremity within normal limits T2DM c/b blindness. ESRD on hemodialysis TTS via R IJ Permcath. Thank you for allowing us to participate in the care of this patient. ..Yovany Ramirez MD, MPH, [facility] Infectious Diseases Attending Pager Number: [phone] * Joy Stein RN - 06/01/2024 9:56 PM CDT Problem: Pain/Discomfort Goal: Patient exhibits [...] in the flowsheet documentation) Outcome: Progressing Problem: Tissue injury due to various disease processes Goal: Provide optimal wound healing environment Outcome: Progressing Problem: Tissue Injury due to Inadequate Arterial Perfusion Goal: Maintain Clean/Stable wound environment Outcome: Progressing Problem: Tissue Injury due to Venous Hypertension Goal: Maintain Infection Free Stable Wound Environment Outcome: Progressing Problem: Tissue Injury Due to Loss of Protective Sensation Goal: Protect Injured Tissue and Prevent Further Injury Outcome: Progressing Problem: Tissue Injury Due to External Forces of Pressure, Friction, and Shear Goal: Protect Skin from External Forces Outcome: Progressing Goal: Maintain and Improve Tissue Tolerance to Pressure Outcome: Progressing Problem: Nutrient: Increased nutrient needs (specify) Goal: Total intake will meet estimated nutrient needs Outcome: Progressing Problem: Skin Integrity Goal: Skin integrity is maintained or improved Outcome: Progressing Problem: Hemodynamic Status/Cardiac Output Goal: Patient has stable vital signs and fluid balance Outcome: Progressing Problem: Fluid and Electrolyte Imbalance Goal: Fluid and electrolyte balance are achieved/maintained Outcome: Progressing Problem: Infection Goal: Signs and symptoms of infections are decreased or avoided Outcome: Progressing Problem: Transfers Goal: STG - Patient will transfer sit to and from stand Outcome: Progressing Problem: Balance Goal: LTG - Patient will demonstrate Intervention to enhance balance for safe completion of daily activities Outcome: Progressing * Jovanni Arambula MD - 06/01/2024 4:02 PM CDT Plan of Care Update Patient case revisited today with Dr. Cruz, primary inpatient attending regarding patient's chronic left shoulder pain. Most recent shoulder and bursal aspiration demonstrated hemarthrosis with noresults concerning for crystalline or infectious arthropathy. 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 Given thedocumented likelihood of recurrence and surgical morbidity if surgical intervention were undertaken, open surgical management is not recommended at the present time. All recent relevant lab values and imaging have been reviewed by the orthopaedic trauma team and faculty. If further evaluation is desired, recommend IR guided re-aspiration. Otherwise, recommend medical management of underlying chronic disease and symptomatic management. Given negative cultures and low likelihood of infection, recommend against antibiotic therapy for left shoulder effusions/bursitis at the present time. Andrea AJ, Rothfuss S, Alejandro HR Jr. Dialysis arthropathy: identification and evaluation of a subset of patients with unexplained inflammatory effusions. J Rheumatol. 1997 Jul;24(9):1780-6. PMID: 4407256. Khris CHoracio H. Spontaneous hemarthrosis in a patient treated with hemodialysis for chronic renal failure. Arthritis Rheum. 1982 Sep;25(11):1387. doi: 10.1002/art.[id number]. PMID: 7729826. Lizbet PMary RA. Spontaneous haemarthrosis in amyloid arthropathy of the shoulder. Aust N Z J Med. 1990;21(3):343-4. doi: 10.1111/j.1445- 5994.1991.[id number].x. PMID: 6643615. Jovanni Arambula MD Orthopaedic Surgery 06/01/24 4:12 PM * Glenroy Henning MD - 06/01/2024 3:48 PM CDT [facility] INTERNAL MEDICINE PROGRESS NOTE Patient: Gay Canales Sex: female Age: [age] year old Date of : 1990 Date of Admission: 05/23/2024 Date: 06/01/2024 LOS: 9 SUBJECTIVE Interval History: No acute events overnight. Patient denies significant pain or swelling of L shoulder today. She denies fever, chills, nausea, vomiting. Hospital Course: Per chart review with edits: Patient is a 33F with PMHx of T2DM, HTN, HFpEF, chronic right heel ulcer/osteomyelitis, prior L BKA, ESRD on HD TTS, possible sickle cell disease who presents from OSH with concerns of L shoulder septic arthritis. At OSH orthopedic surgery aspirated purulent fluid from her L shoulder. She was transferred to [facility] from further evaluation of her L shoulder. ID and orthopedic surgery was consulted on arrival. She was started on IC vanc and cefepime. Rheumatology and hematology were consulted for inflammatory arthropathy and sickle cell disease respectively. Rheumatology without concerns for rheumatologic process at this time. Hemoglobin electrophoresis unremarkable for sickle cell disease or sickle cell trait. MRI showed infectious bursitis, orthopedic surgery without any acute surgical intervention. OBJECTIVE Vital Signs: Vitals: 06/01/24 1420 06/01/24 1440 06/01/24 1447 06/01/24 1452 BP: 81/51 89/56 89/56 112/73 Pulse: 83 87 87 86 Resp: 20 19 19 19 Temp: 98.2 ??F (36.8 ??C) SpO2: 97% Weight: Height: Temp Min: 97.5 ??F (36.4 ??C) Max: 99.1 ??F (37.3 ??C), Pulse Min: 76 Max: 95, Resp Min: 14 Max: 20, BP Min: 78/57 Max: 171/95 Intake & Output: In: 2906 [P.O.:2906] Out: - Physical Exam: Physical Exam HENT: Head: Normocephalic and atraumatic. Eyes: General: No scleral icterus. Cardiovascular: Rate and Rhythm: Normal rate and regular rhythm. Heart sounds: No murmur heard. No friction rub. No gallop. Pulmonary: Breath sounds: No wheezing, rhonchi or rales. Abdominal: Tenderness: There is no abdominal tenderness. Musculoskeletal: Right lower leg: No edema. Left lower leg: No edema. Comments: Painful L shoulder ROM Neurological: General: No focal deficit present. Mental Status: She is oriented to person, place, and time. Current Medications: Scheduled: 0.9% NaCl 3 mL Intracatheter q8h amLODIPine 10 mg Oral QDAY carvedilol 12.5 mg Oral BID WC cefepime 2 g Intravenous TU, THUR & SAT furosemide 40 mg Oral FRI, FRI AND FRI gabapentin 100 mg Oral TID heparin 5,000 Units Subcutaneous BID insulin aspart 0-12 Units Subcutaneous TID WC insulin glargine 8 Units Subcutaneous QDAY lisinopril 20 mg Oral QDAY polyethylene glycol 3350 17 g Oral QDAY renal vitamin 1 tablet Oral QDAY sennosides 17.2 mg Oral QDAY sevelamer carbonate 800 mg Oral TID WC vancomycin 750 mg Intravenous TUES, THUR & SAT vancomycin (VANCOCIN) IV dose per pharmacy Does not apply DIRECTED Continuous: PRN: SALINE LOCK, INSERT AND MAINTAIN AND 0.9% NaCl AND 0.9% NaCl acetaminophen dextrose IV for hypoglycemia OR dextrose IV for hypoglycemia OR glucagon glucose (Diabetic Use) gel heparin HYDROmorphone ondansetron (disintegrating) OR ondansetron oxyCODONE (immediate release) OR oxyCODONE (immediate release) Significant Lab Results: reviewed Microbiology: reviewed Imaging & Studies: reviewed ASSESSMENT & PLAN Osteomyelitis of left shoulder, unspecified type (HCC) (POA: Yes) ESRD (end stage renal disease) ([facility]) (POA: Yes) Type 2 diabetes mellitus with diabetic polyneuropathy (HCC) (POA: Yes) #L shoulder pain # infectious bursitis - L Shoulder Xray 05/24: negative for osteo, fracture, or dislocation - L Shoulder MRI 05/28: Subacromial-subdeltoid bursitis PLAN - on IV cefepime and vanc; cefe dosed per nephrology note (2g after HD) - pain management tylenol q6h prn, tiered oxy 5-10 mg q4h prn and dilaudid breakthrough q6hprn - ID consulted: -Plan for 4 weeks of IV abx from last date of L shoulder aspiration(05/24/2024- EOT 06/21/2024). -Will need bacterial culture and gram stain, anaerobic cultures with bursitis drainage . -Discharge abx: IV Vanc - pharmacy dosing with HD and IV cefepime with HD (2g, 2g, 2g on HD days). -Will need weekly CBC w diff, CMP, ESR, CRP, vancomycin trough while on IV antibiotics. - Ortho Consulted: Revisited case on 06/01. 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 Given negative cultures and low likelihood of infection, recommend against abx therapyfor L shouldr bursitis and effusions. - Open surgical intervention not recommended. - If further evaluation desired, could obtain IR guided aspiration. #sickle cell disease vs trait - hemoglobin electrophoresis unremarkable for sickle cell disease and sickle cell trait #T2DM #diabetic neuropathy - diabetic diet - lantus 8u - accuchecks and SSI AC - gabapentin 100 mg TID #chronic R heel ulcer - hx IV abx in 2022 - wound care following, recs in their note - NORMA completed per RN plan of care, 1.1 WNL #ESRD on HD - nephrology following - continue sevelemer #HFpEF #HTN - daily weights - continue carvedilol, lasix, lisinopril, and amlodipine #JIAN - hold all iron supplementation due to concerns of active infection - CTM and transfuse if Hgb < 7 Code: FULL Diet: diabetic Electrolytes: Replete PRN PPx: heparin Access: PIV Dispo: pending further workup, likely return to facility The above assessment and plan will be discussed with the attending. This note is not final until attested by attending physician. Glenroy Henning MD Internal Medicine Resident [facility] 06/01/2024 3:49 PM Associated attestation - Rob Cruz MD - 06/01/2024 6:24 PM CDT I have seen and examined the patient with the resident and I agree with the findings and plan of care as documented by the resident. In addition: - discussed with orthopedics, IR and [facility] diagnostic radiology. NO plans for tap. Will need to follow up with ID for next plan in care. Date of Service: 06/01/2024 Rob Cruz MD * Lorena Choudhary LPN - 06/01/2024 3:20 PM CDT 06/01/24 1452 Post Hemodialysis Patient Response to Treatment Tolerated treatment Post Dialysis Patient Status Treatment Completed Ultrafiltration Amount (ml) 3004 Dialyzer Clearance Lightly streaked Amount of blood processed (Liters) 65.5 Post Hemodialysis Comment Goal met, VSS. TX Charge entered in Charge Capture Yes * Eli Colindres - 06/01/2024 12:45 PM CDT [facility] Nephrology Progress Note Date of Service: 05/26/2024 Gay Canales is a 33 year old female w/ PMH significant for HTN, HFpEF, 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 INTERVAL HISTORY: Today, pt doing well, some L shoulder pain but controlled with medication. Euvolemic. Per IM note, IR consult planned for potential drainage of L shoulder bursitis. Hospital Medications: 0.9% NaCl 3 mL Intracatheter q8h amLODIPine 10 mg Oral QDAY carvedilol 12.5 mg Oral BID WC cefepime 2 g Intravenous TUES, THUR & SAT furosemide 40 mg Oral MON, WED AND FRI gabapentin 100 mg Oral TID heparin 5,000 Units Subcutaneous BID insulin aspart 0-12 Units Subcutaneous TID WC insulin glargine 8 Units Subcutaneous QDAY lisinopril 20 mg Oral QDAY polyethylene glycol 3350 17 g Oral QDAY renal vitamin 1 tablet Oral QDAY sennosides 17.2 mg Oral QDAY sevelamer carbonate 800 mg Oral TID WC vancomycin 750 mg Intravenous TUES, THUR & SAT vancomycin (VANCOCIN) IV dose per pharmacy Does not apply DIRECTED Physical Exam: Vitals: 06/01/24 1120 06/01/24 1140 06/01/24 1200 06/01/24 1220 BP: 100/71 103/68 115/82 116/81 Pulse: 81 81 84 86 Resp: 19 19 19 20 Temp: SpO2: Weight: Height: Intake/Output Summary (Last 24 hours) at 06/01/2024 1245 Last data filed at 05/31/2024 2109 Gross per 24 hour Intake 952 ml Output -- Net 952 ml Genera Appearance: NAD Neck:Supple Cardiovascular: Well perfused Respiratory: Normal WOB Abdomen: ND Extremities: No LE edema Dialysis access: RIJ permacath c/d/i LABS: Recent Labs Component Name 06/01/24 0442 05/31/24 0605 05/30/24 0452 NA 135* 136 137 POTASSIUM 5.0* 4.6* 4.4 CL 102 101 102 CO2 26 29 29 BUN 43* 37* 28* CREATININE 5.83* 5.07* 3.67* Recent Labs Component Name 06/01/24 0442 05/31/24 0605 05/30/24 0452 CALCIUM 8.3* 8.2* 8.4 PHOS 5.6* 5.4* 4.5 Recent Labs Component Name 02/25/24 0110 PTHINTACT 93.0* Recent Labs Component Name 06/01/24 0442 05/31/24 0605 05/30/24 0452 WBC 8.8 8.9 9.3 HGB 9.7* 10.1* 10.6* Recent Labs Component Name 02/25/24 0110 IRON 23* TIBC 149* FERRITIN 833* ASSESSMENT Gay Canales is a 33 year old female w/ PMH significant for HTN, HFpEF, 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 ESRD on maintenance dialysis: Chronic kidney disease-mineral and bone disorder (CKD-MBD): Anemia of chronic kidney disease on dialysis: Hypertension: RECOMMENDATIONS Will continue maintenance HD TTS Please refer to the initial nephrology consult note for additional information. Eli Colindres, MS4 Associated attestation - Michael Holt MD - 06/01/2024 6:22 PM CDT I have personally seen and examined the patient, reviewed the presentation, course and lab with themedical student and agree with assessment and plan in the accompanying note and I arrive independently to the same conclusion. Michael Holt MD 06/01/2024 6:22 PM * Lexus Bright, PharmD - 06/01/2024 12:38 PM CDT ACTIVE CONSULTS TO PHARMACY/DISEASE STATE MONITORING Pharmacy Consult: Vancomycin ASSESSMENT/PLAN Indication: documented Bone/joint of chronic R heel ulcer/osteo (stable) and L shoulder abscess/osteo with Goal Level: Pre-HD 15-20 mcg/ml ID consulted/following: Yes Assessment: Day of treatment: 18 End of treatment date: 06/21 (4 weeks from last date of left shoulder aspiration (05/24)) Current dosing regimen: 750 mg,dosing post HD sessions (Fri//Fri) Recent Labs Component Name 06/01/24 0442 05/31/24 0605 05/30/24 0452 05/29/24 0408 05/28/24 0335 05/27/24 0659 05/22/23 0521 05/21/23 0450 05/20/23 0918 05/17/23 2151 05/09/23 0357 05/08/23 0841 04/29/23 0338 04/28/23 0319 04/27/23 2019 CREATININE 5.83* 5.07* 3.67* 4.81* - 4.15* - 1.62* - - 1.83* - - 1.39* - BUN 43* 37* 28* 43* - 31* - 13 - - 17 - - 13 - VANCORNDM 18.3 - - 23.0 - 14.8 - - - - - - [...] MRSA positive: Yes, hx of MRSA bacteremia 02/16/24 c/b left pectoralis major abscesses, and left shoulder septic arthritis and osteomyelitis: S/p abscess near L-shoulder aspiration (11 mL pus) on 02/25/2024, Gram stain showed no organisms and culture negative. Was treated with IV vancomycin ->linezolid PO, 6 weeks total through 04/06/2024. However, image (CT or MRI) was not obtained at the end of 6 weeks of antibiotics to confirm resolution of the abscess. Other pertinent micro: No Renal: Considered difficult to accurately assess at this time as patient is on intermittent hemodialysis (iHD) with last session 05/29 and next planned 06/01. Level(s): See chart above Pre-HD vancomycin random level today was 18.3 mcg/mL. Patient is on iHD with expected clearance of 20-30% per iHD session, the level reported above is expected to be within the therapeutic range after next HD session. Plan Dosing: Will continue current regimen of vancomycin 750 mg post-HD to target pre-HD level of 15-20 mcg/ml . Monitoring Will order a vancomycin random level prior to iHD session on 06/08 at 0400 with AM labs and adjust regimen if indicated. Continue to monitor patient???s renal function and cultures as needed. Lexus Bright, PharmD 06/01/2024 9:[address] [facility] Vancomycin Guideline SUBJECTIVE/OBJECTIVE Gay Canales is a 33 year old female. Height: 6' (182.9 cm) Wt 93.4 kg (205 lb 14.6 oz) Body mass index is 27.93 kg/m??. Vancomycin Administrations from JAN (last 72 hours) Date/Time Action Medication Dose Rate 05/29/24 4658 $ New Bag/Syringe vancomycin (Vancocin) 750 mg in 0.9% NaCl IV 250 mL IVPB 750 mg 333.33 mL/hr * Lorena Choudhary LPN - 06/01/2024 12:16 PM CDT Problem: Hemodynamic Status/Cardiac Output Goal: Patient has stable vital signs and fluid balance Outcome: Progressing Problem: Fluid and Electrolyte Imbalance Goal: Fluid and electrolyte balance are achieved/maintained Outcome: Progressing Problem: Infection Goal: Signs and symptoms of infections are decreased or avoided Outcome: Progressing * Ildefonso Perez RN - 06/01/2024 10:00 AM CDT Problem: Pain/Discomfort Goal: Patient exhibits reduced pain/discomfort as evidenced by pain scores Outcome: Progressing Problem: Fall Risk Goal: Fall risk and fall related injury risk are minimized (interventions related to the fall risk can be found in the flowsheet documentation) Outcome: Progressing * Terri Garcia RN - 06/01/2024 6:21 AM CDT Diagnosis (BOBBY/CRF): crf Non-Renal Diagnosis: sepsis Isolation No active isolations Does patient have signs or symptoms of respiratory infection(fever, cough, shortness of breath): no No Known Allergies Code Status: full Orientation Status: x4 On telemetry/Rhythm: no Oxygen: room air Given any medications: see mar Need for pain medications: no Blood pressure issues: no On any drips: no Is patient diabetic: yes Any labs to draw: no Any other procedures today: no Any concerns about this patient : no Any medications to be given with dialysis: heparin Report from: Kwan SAUMEL Phone number: [phone] * Zach Martin MSW - 05/31/2024 4:30 PM CDT Images from the original note were not included. DC Plan: Prior to admission level of care: Half-Way - Skilled Facility Prior to admit provider: Danyelle Hendrix [facility] Anticipated level of care at discharge: Half-Way - Skilled Facility Anticipated level of care provider: Danyelle Hendrix [facility] ([facility]) Discharge Plan: COMBINATION SAW OPERATOR received message of patient's desire to discharge to sister's home with home health. Patient has been at [facility] for 7 months following a Rehab discharge (post amputation). Met with patient at bedside. Stated she doesn't receive enough therapy at SNF (3x weekly). Discussed SNF vs HHC frequency. Patient inquired about acute rehab, named two facilities. COMBINATION SAW OPERATOR sent referrals to preferred ARU per patient's request. Prosthesis: stated needs to be refitted with an appointment scheduled for 06/20 DIALYSIS: Per coordinator, established OPHD clinic ([facility]) is not able to accommodate IVABX (scheduled until 06/21) VERONIKA Bailey 05/31/2024 4:36 PM Orientation Level: Oriented X4: Family Support (Name and Phone): Extended Emergency Contact Information Primary Emergency Contact: Silvia Resendiz Mobile Relation: Mother Foot Orthopedist needed? No Secondary Emergency Contact: GAYE BEAL Mobile Relation: Sister Foot Orthopedist needed? [place]: VERONIKA Bailey, COMBINATION SAW OPERATOR Continued Care and Services - Admitted Since 05/23/2024 Dialysis/Infusion Coordination complete. Service Provider Request Status Selected Services Address Phone Fax Patient Preferred [facility] Selected Dialysis [address] [facility], [facility] [id number] -- Selected Continued Care - Prior Encounters Includes continued care and service providers with selected services from prior encounters from 02/23/2024 to 05/31/2024 Discharged on 03/02/2024 Admission date: 02/22/2024 - Discharge disposition: Nursing Facility:Medicaid Dialysis/Infusion Service Provider Selected Services Address Phone Fax Patient Preferred [facility] [address], [facility] [id number] [phone] -- Continued Care and Services - Admitted Since 05/23/2024 Destination Service Provider Request Status Selected Services Address Phone Fax Patient Preferred [facility] ([facility]) Pending - Request Sent N/A [id number] [facility] [id number] -- [facility] Pending - Request Sent N/A [address] [facility] [id number] [phone] -- * Glenroy Henning MD - 05/31/2024 2:30 PM CDT [facility] INTERNAL MEDICINE PROGRESS NOTE Patient: Gay Canales Sex: female Age: [age] year old Date of : 1990 Date of Admission: 05/23/2024 Date: 05/31/2024 LOS: 8 SUBJECTIVE Interval History: No acute events overnight. Patient still agrees to bursitis drainage. Hospital Course: Per chart review with edits: Patient is a 33F with PMHx of T2DM, HTN, HFpEF, chronic right heel ulcer/osteomyelitis, prior L BKA, ESRD on HD TTS, possible sickle cell disease who presents from OSH with concerns of L shoulder septic arthritis. At OSH orthopedic surgery aspirated purulent fluid from her L shoulder. She was transferred to [facility] from further evaluation of her L shoulder. ID and orthopedic surgery was consulted on arrival. She was started on IC vanc and cefepime. Rheumatology and hematology were consulted for inflammatory arthropathy and sickle cell disease respectively. Rheumatology without concerns for rheumatologic process at this time. Hemoglobin electrophoresis unremarkable for sickle cell disease or sickle cell trait. MRI showed infectious bursitis, orthopedic surgery without any acute surgical intervention. OBJECTIVE Vital Signs: Vitals: 05/31/24 0032 05/31/24 0418 05/31/24 0818 05/31/24 1137 BP: 150/89 124/63 142/84 125/74 Pulse: 90 84 87 81 Resp: 18 14 Temp: 97.9 ??F (36.6 ??C) 98.2 ??F (36.8 ??C) 98.4 ??F (36.9 ??C) 98.1 ??F (36.7 ??C) SpO2: 100% 96% 99% 93% Weight: Height: Temp Min: 97.6 ??F (36.4 ??C) Max: 99.1 ??F (37.3 ??C), Pulse Min: 76 Max: 95, Resp Min: 14 Max: 20, BP Min: 78/57 Max: 171/95 Intake & Output: In: 2176 [P.O.:2176] Out: - Physical Exam: Physical Exam HENT: Head: Normocephalic and atraumatic. Eyes: General: No scleral icterus. Cardiovascular: Rate and Rhythm: Normal rate and regular rhythm. Heart sounds: No murmur heard. No friction rub. No gallop. Pulmonary: Breath sounds: No wheezing, rhonchi or rales. Abdominal: Tenderness: There is no abdominal tenderness. Musculoskeletal: Right lower leg: No edema. Left lower leg: No edema. Comments: Painful L shoulder ROM Neurological: General: No focal deficit present. Mental Status: She is oriented to person, place, and time. Current Medications: Scheduled: 0.9% NaCl 3 mL Intracatheter q8h amLODIPine 10 mg Oral QDAY carvedilol 12.5 mg Oral BID WC cefepime 2 g Intravenous TU, THUR & SAT furosemide 40 mg Oral FRI, FRI AND FRI gabapentin 100 mg Oral TID heparin 5,000 Units Subcutaneous BID insulin aspart 0-12 Units Subcutaneous TID WC insulin glargine 8 Units Subcutaneous QDAY lisinopril 20 mg Oral QDAY polyethylene glycol 3350 17 g Oral QDAY renal vitamin 1 tablet Oral QDAY sennosides 17.2 mg Oral QDAY sevelamer carbonate 800 mg Oral TID WC vancomycin (VANCOCIN) IV dose per pharmacy Does not apply DIRECTED Continuous: PRN: SALINE LOCK, INSERT AND MAINTAIN AND 0.9% NaCl AND 0.9% NaCl acetaminophen dextrose IV for hypoglycemia OR dextrose IV for hypoglycemia OR glucagon glucose (Diabetic Use) gel heparin HYDROmorphone ondansetron (disintegrating) OR ondansetron oxyCODONE (immediate release) OR oxyCODONE (immediate release) Significant Lab Results: reviewed Microbiology: reviewed Imaging & Studies: reviewed ASSESSMENT & PLAN Osteomyelitis of left shoulder, unspecified type (HCC) (POA: Yes) ESRD (end stage renal disease) ([facility]) (POA: Yes) Type 2 diabetes mellitus with diabetic polyneuropathy (HCC) (POA: Yes) #L shoulder pain # infectious bursitis - on IV cefepime and vanc; cefe dosed per nephrology note (2g after HD) - no acute surgical intervention post MRI per ortho - pain management tylenol q6h prn, tiered oxy 5-10 mg q4h prn and dilaudid breakthrough q6hprn - ID consulted: -Plan for 4 weeks of IV abx from last date of L shoulder aspiration(05/24/2024- EOT 06/21/2024). -Will need bacterial culture and gram stain, anaerobic cultures with bursitis drainage . - Discharge abx: IV Vanc - pharmacy dosing with HD and IV cefepime with HD (2g, 2g, 2g on HD days). - Will need weekly CBC w diff, CMP, ESR, CRP, vancomycin trough while on IV antibiotics. - IR and ortho do not do bursitis drainage. Will have to wait until 06/01 to discuss drainage with [facility] Dr. De Guzman ([id number]) #sickle cell disease vs trait - hemoglobin electrophoresis unremarkable for sickle cell disease and sickle cell trait #T2DM #diabetic neuropathy - diabetic diet - lantus 8u - accuchecks and SSI AC - gabapentin 100 mg TID #chronic R heel ulcer - hx IV abx in 2022 - wound care following, recs in their note - NORMA completed per RN plan of care, 1.1 WNL #ESRD on HD - nephrology following - continue sevelemer #HFpEF #HTN - daily weights - continue carvedilol, lasix, lisinopril, and amlodipine #JIAN - hold all iron supplementation due to concerns of active infection - CTM and transfuse if Hgb < 7 Code: FULL Diet: diabetic Electrolytes: Replete PRN PPx: heparin Access: PIV Dispo: pending further workup, likely return to facility The above assessment and plan will be discussed with the attending. This note is not final until attested by attending physician. Glenroy Henning MD Internal Medicine Resident [facility] 05/31/2024 2:31 PM Associated attestation - Hunter Chin III, MD - 06/01/2024 12:40 PM CDT I have chart reviewed, seen, and examined the patient. Together the resident and I formulated a therapeutic plan for this patient based on their subjective and objective findings, including any new lab and image findings. I agree with the assessment and plan as documented unless specifically mentioned below. Date of Service: Date of Resident's note Hunter Chin MD [facility], Hospital Medicine [facility] [employer] 06/01/24 12:40 PM * Eli Colindres - 05/31/2024 2:10 PM CDT [facility] Nephrology Progress Note Date of Service: 05/26/2024 INTERVAL HISTORY: Today, pt doing well, some L shoulder pain but controlled with medication. Euvolemic. Per IM note, IR consult planned for potential drainage of L shoulder bursitis. Hospital Medications: 0.9% NaCl 3 mL Intracatheter q8h amLODIPine 10 mg Oral QDAY carvedilol 12.5 mg Oral BID WC cefepime 2 g Intravenous TU, & SAT furosemide 40 mg Oral FRI, WED AND FRI gabapentin 100 mg Oral TID heparin 5,000 Units Subcutaneous BID insulin aspart 0-12 Units Subcutaneous TID WC insulin glargine 8 Units Subcutaneous QDAY lisinopril 20 mg Oral QDAY polyethylene glycol 3350 17 g Oral QDAY renal vitamin 1 tablet Oral QDAY sennosides 17.2 mg Oral QDAY sevelamer carbonate 800 mg Oral TID WC vancomycin (VANCOCIN) IV dose per pharmacy Does not apply DIRECTED Physical Exam: Vitals: 05/31/24 0032 05/31/24 0418 05/31/24 0818 05/31/24 1137 BP: 150/89 124/63 142/84 125/74 Pulse: 90 84 87 81 Resp: 18 14 Temp: 97.9 ??F (36.6 ??C) 98.2 ??F (36.8 ??C) 98.4 ??F (36.9 ??C) 98.1 ??F (36.7 ??C) SpO2: 100% 96% 99% 93% Weight: Height: Intake/Output Summary (Last 24 hours) at 05/31/2024 1412 Last data filed at 05/31/2024 0800 Gross per 24 hour Intake 1474 ml Output -- Net 1474 ml Genera Appearance: NAD Neck:Supple Cardiovascular: Well perfused Respiratory: Normal WOB Abdomen: ND Extremities: No LE edema Dialysis access: RIJ pamacath c/d/i LABS: Recent Labs Component Name 05/31/24 0605/30/24 04505/29/24 0408 NA 136 137 138 POTASSIUM 4.6* 4.4 4.8* CL 101 102 104 CO2 29 29 25 BUN 37* 28* 43* CREATININE 5.07* 3.67* 4.81* Recent Labs Component Name 05/31/24 0605/30/24 0452 05/29/24 0408 CALCIUM 8.2* 8.4 8.4 PHOS 5.4* 4.5 6.2* Recent Labs Component Name 02/25/24 0110 PTHINTACT 93.0* Recent Labs Component Name 05/31/2460405/30/2445105/29/24 0408 WBC 8.9 9.3 7.7 HGB 10.1* 10.6* 10.8* Recent Labs Component Name 02/25/24 0110 IRON 23* TIBC 149* FERRITIN 833* ASSESSMENT ESRD on maintenance dialysis: Chronic kidney disease-mineral and bone disorder (CKD-MBD): Anemia of chronic kidney disease on dialysis: Hypertension: RECOMMENDATIONS Will continue maintenance HD TTS Per ID, will need 6 weeks of IV abx, however pt states her o/p dialysis unit will not administer abx so looks like she either needs to have a central line placed and go home with home health vs go toa facility while she completes the 6 week course. Please keep us updated re: d/c plan. Please refer to the initial nephrology consult note for additional information. Eli Colindres, MS4 Associated attestation - Michael Holt MD - 05/31/2024 7:51 PM CDT I have seen and examined the patient, reviewed the presentation and course with the Medical Studentand verified documentation including history and physical exam. I have personally reviewed the datato support my medical decision as outlined in the student's note and I arrive independently at the same conclusion. Plan for iHD tomorrow Friday. Michael Holt MD 05/31/2024 7:51 PM * Bhakti Quintana, OT - 05/31/2024 2:05 PM CDT [facility] Physical Medicine and Rehabilitation Occupational Therapy Progress Note Patient: Gay Canales [facility] Record Number: [id number] Date of : 1990 Age: [age] year old PPE worn by staff: gloves;mask - procedural PPE worn by patient: gown - patient, clean;socks - clean Tech: na Recommendations: Discharge OT Discharge Recommendations: Patient would benefit from ongoing therapy with home health Pt states she can stay with her sister upon DC; if this is accurate information, pt would be safe to DC to sister's house as she is SBA with transfers. Pt states she has access to a WC; only equipment she would need would be a WW. If pt cannot stay at sister's home, pt would need SNF placement. Patient is SBA with transfer with a wheeled walker and will benefit from use of a wheeled walker toallow the patient to safely participate in activities of daily living such as bathing, dressing, meal prep, etc in a reasonable time frame. Without such device, patient would be unable to complete this activity safely. Nurse and Physical Therapy contacted regarding patient status and/or discharge plan. Activity Level: up ad rebekah PRECAUTIONS: Weight Bearing Status: Lower Extremity;Upper Extremity Weight Bearing: WBAT (LUE) SUBJECTIVE: Subjective: pt agreeable to therapy. I would really like to go to my sister's house instead. she said I could stay there. Sent message to PADMINI/JEAN regarding pt's requests for DC plan; awaiting response. Pain Assessment: Pain Location #1 Pain Scale/Observation: Numeric (0-10) Pain Rating Score #1: 0 OBJECTIVE: At start of therapy session, patient found on edge of bed and with no alarm General Appearance: 33 y/o female; seated NAD LDA: IV's: Peripheral line Vitals: (*Assess the 3 levels of oxygen saturations both for room air and 02 unless rest on room air is 88% or less). Rest BP: HR: Sp02 Sp02 Room Air L O2 Ex/Gait/Activity Without 02 BP: HR: Sp02 Room Air Ex/Gait/Activity With 02 BP: HR: Sp02 L O2 Post Activity BP: HR: Sp02 Sp02 L O2 Room Air Observations: VSS throughout Mental Status/Cognition: Level of Consciousness-Adult: Alert Orientation Level: Oriented X4 Cognition: Follows Commands-Consistent;Attention/concentration-normal for age;Processing-Appropriate Attention Span: Appears intact Memory: Appears intact Following Commands: Follows all commands and directions without difficulty Safety Judgement: Good awareness of safety precautions Awareness of Errors: Good awareness of errors made Problem Solving: Able to problem solve independently Mobility: a gait belt and non-slip socks were used for all out of bed activity this date. Bed Mobility: Rolling: Activity Does Not Occur Supine to Sit: Activity Does Not Occur (pt seated EOB) Sit to Supine: Activity Does Not Occur Transfers: Sit to Stand: Stand By Assist Stand to Sit: Stand By Assist Bed to Chair: Activity Does Not Occur;Declined Transfer Device: Gait belt;Walker-2 Wheeled Functional Ambulation: Patient ambulated ~2 feet laterally with min assist, WW Balance: Balance Scales/Tests Used: Sitting: Static/Dynamic;Standing: Static/Dynamic Sitting - Static: Good Sitting - Dynamic: Good Standing - Static: Good -;With Both Upper Extremity's Support Standing - Dynamic: Fair;With Both Upper Extremity's Support Comments: Activities of Daily Living: Feeding: Activity Does Not Occur Oral Facial Hygiene: Activity Does Not Occur (pt already completed ADLs this date) Splint Issued/Checked: none ACTIVITY TOLERANCE: Activity Tolerance: Requires rest breaks AM-PAC 6 Clicks Daily Activity Raw Score:: 21 TREATMENT/INTERVENTIONS: ADL training Functional transfer training Endurance training Bed mobility Safety awareness EDUCATION: While performing OT, Patient was instructed in:functional mobility training, self-care training, safety awareness/fall precautions Presented to patient who demonstrates Fair understanding of instructions given. INFORMED CONSENT TO TREATMENT: Plan of care including recommended therapy, goals and frequency, discussed with patient who understands and agrees to proceed. ASSESSMENT: Functional performance limited due to: limited activities of daily living, decreased functional mobility, decreased functional balance, and decreased endurance and activity tolerance. Patient continues to benefit from skilled Occupational Therapy to achieve the following functional goals. Short Term Goals: Goal Formation With patient Patient will perform home exercise program with stand by assist Patient will perform lower extremity dressing with minimal assist Patient will perform toileting with modified independence Patient will transfer to bedside commode with stand by assist Residential Goal(s): Patient to be independent/baseline with functional mobility and self care and be able to safely discharge to prior level of care Plan: Patient continues to benefit from skilled therapy services., Continue with goals as established. If patient is discharged from the facility, this note serves as a discharge summary if further occupational therapy visits did not occur. Refer to filed flowsheet for further details. Following therapy session, patient left in bed, with call light within reach. * Ildefonso Perez RN - 05/31/2024 12:43 PM CDT Problem: Pain/Discomfort Goal: Patient exhibits reduced pain/discomfort as evidenced by pain scores Outcome: Progressing Problem: Fall Risk Goal: Fall risk and fall related injury risk are minimized (interventions related to the fall risk can be found in the flowsheet documentation) Outcome: Progressing * Khloe Lowery - 05/31/2024 11:31 AM CDT Updated progress notes sent to patient's Outpatient Hemodialysis Dialysis center.Just spoke with Rowan at [facility] and she informed that due to infection not being dialysis related they are not able to provide IV ABX, but they are able to give if provided by a outside provider. Primary, CM,SW, nephrology made aware. Khloe Lowery Kidney Navigator/ [facility] As[facility]: [phone] Office: [phone] * Roxanna Roth PA-C - 05/31/2024 10:02 AM CDT [facility] Infectious Diseases Inpatient Progress Note Patient Name: Gay Canales 1990 Room: [facility] Date of Admission: 05/23/2024 Date of Service: 05/31/2024 Primary Care Physician: CHERISE BARBERO, PA-C Attending Physician: Hunter Chin III, MD Reason for Infectious Disease Consultation Left shoulder septic bursitis / osteomyelitis, antibiotic recommendations IMPRESSION Left shoulder septic bursitis / osteomyelitis History of MRSA bacteremia History of left pectoral abscess s/p I&D and antibiotic treatment, EOT 04/07/2024 Chronic right heel ulcer with chronic osteomyelitis DM2 ESRD on HD RECOMMENDATIONS - Continue IV vancomycin - Continue IV cefepime - Plan for 4 weeks of IV antibiotics from last date of left shoulder aspiration (05/24/2024 - EOT 06/21/2024). - Appreciate orthopedic recommendations, agree with IR aspiration septic bursa. If aspiration should occur please obtain standard bacterial culture and gram stain, anaerobic cultures. - Please obtain CBC w diff, CMP, ESR, CRP, vancomycin trough at least weekly while on IV antibiotics. - As part of routine screening, HCV antibody with reflex to HCV RNA quantitative (universally recommended per CDC guidelines) Note: Discussed with patient that concerned source of recurrent infections could be seeding from her chronic right foot wound to other joints. NORMA on right leg 1.1 which is good for wound healing. Patient is higher risk for infection with ESRD and DM2 as these cause immunosuppression. There is alsoconcern that patient has an underlying inflammatory arthropathy with last admission right shoulder a spiration not concerning for septic arthritis and opposite shoulder septic arthritis this admission. Appreciate recs from hem/onc and rheumatology. Primary team updated with above recommendations. Please call the Ortho ID pager [phone] with any questions. ..When patient is cleared for discharge, patient will be discharged on: IV vancomycin - pharmacy dosing with HD IV cefepime with HD (2g, 2g, 2g on HD days). Duration of therapy is 4 weeks with EOT 06/21/2024 Obtain weekly Cbc with Diff, CMP, CRP, ESR, and vancomycin trough Fax weekly lab results to [facility] ID clinic on Fax no [phone] (Attn: Roxanna Roth PA-C and Dr. Carlson) If there any concerns, please call [facility] infectious disease clinic: phone [phone] Follow-up in [facility] ID clinic on: 06/22/2024 [facility] ID clinic [facility] [address] [place] [address] Clinic phone [phone] Clinic fax [phone] DISCUSSION Gay Canales is a 33 year old female with PMH of blindness, T2DM, HTN, chronic HFpEF, chronic right heel ulcer/osteomyelitis(tx only with IV abx) , prior left BKA, ESRD on HD (//Fri) and possible sickle cell disease, permanent residence at [facility]. Patient presented to [facility] on 05/23/2024 as OSH transfer for concerns of left shoulder septic bursitis / osteomyelitis. Left shoulder septic bursitis / osteomyelitis - 05/20/2024: Bcx no growth - 05/21/2024: S/p OSH left shoulder aspiration, culture no growth - 05/24/2024: S/p left shoulder aspiration. Synovial fluid with 6k nucleated cells, 83% neutrophils,610,000 RBCs. ?decreased nucleated cells due to antibiotic admin since 05/15/2024 vs. Inflammatory arthropathy. - 05/28/2024: MRI left shoulder consistent with septic bursitis (subacromial subdeltoid), no osteomyelitis - Per rheumatology, no signs of inflammatory arthropathy - On IV vancomycin / IV cefepime History of MRSA bacteremia History of left pectoral abscess s/p I&D and antibiotic treatment - Patient at increased risk for recurrent MRSA infection Chronic right heel ulcer with chronic osteomyelitis - does not appear infected at this time - No indication to treat chronic osteo with stable wound - NORMA 1.1 per RN plan of care note 05/29/2024. Clinically not PAD in RLE. ?Sickle Cell - appreciate hematology input DM2 - A1C 6.5 on 02/23/2024 - Continue care per primary team ESRD on HD - Followed by nephrology - Need right IJ permacath dressing evaluated by nephrology due to itching CDC Screening - HIV negative 02/24/2024 - Recommend Hep C testing QTC: Not available Renal Function: Estimated Creatinine Clearance: 20.6 mL/min (A) (by C-G formula based on SCr of 5.07 mg/dL (H)). Hardware: None Thank you for allowing us to participate in the care of this patient. We will continue to follow and monitor with you closely. Please call the Ortho ID pager [phone] with any questions. I spent 35 mins [...] Sorensen, PA-C Division of Infectious Diseases Contact: [email or web address] - [employer] Secure Chat preferred ID Clinic ID Clinic Subjective History of Present Illness: Gay Canales is a 33 year old female with PMH of blindness, T2DM, HTN, chronic HFpEF, chronic right heel ulcer/osteomyelitis(tx only with IV abx) , prior left BKA, ESRD on HD (/Fri) and possible sickle cell disease, permanent residence at [facility]. Patient presented to [facility] on 05/23/2024 as OSH transfer for concerns of left shoulder septic bursitis / osteomyelitis. Per chart review and clarification with patient, she had a left axillary abscess in February 2024 which was treated with I&D and a short course of PO antibiotics. She has had progressive worsening of her shoulder pain. Presented to OSH (Loc) on 05/15/2024. CT left shoulder showed large complex subacromial / subdeltoid and subcoracoid bursal fluid collection associated with osteolysis at the coracoid process and under surface of the acromion consistent with septic bursitisand osteomyelitis. Patient started on IV vancomycin and cefepime at OSH. OSH records received with blood cultures from 05/20 with no growth. Orthopedic surgery at OSH aspirated 145 cc purulent / serosanguineous fluid from left shoulder on 05/21/2024. Gram stain from OSH shows no organisms and no culture growth to date. Patient transferred to [facility] on 05/23/2024 for further evaluation. Labs at transfer with CRP 1.4, ESR 114, WBC 8.9, Alk phos 170. Otherwise stable. Patient has right IJ HD permacath. She reports that it is open to air most of the time secondary toitching around the dressing. She has a chronic wound on her right heel which is not painful and has not worsened since she had an I&D in 04/2023 and completed IV antibiotics for osteomyelitis. Previous [facility] Hx: 04/26/2023 -05/09/2023: Presented for for foot [...] transitioned to PO linezolid to complete treatment. ID consulted for left shoulder septic bursitis osteomyelitis. Hospital Course: 05/24/2024: Ortho left shoulder aspiration: Synovial fluid 6k nucleated cells, 83% neutrophils, 610,000 RBC. Cultures in progress, no organisms on gram stain. 05/28/2024: MRI left shoulder consistent with subacromial subdeltoid septic bursitis. No osteomyelitis noted. 05/29/2024: NORMA 1.1 right lower extremity. No PAD. Today: 05/31/2024: Patient with ongoing left shoulder pain, 8/10 today. No fevers, chills, nausea, vomiting, diarrhea, rashes, itching. Tolerating antibiotics. NORMA right leg WNL. Pending IR evaluation for septic bursitis. WBC 8.9. Renal function stable on HD. Afebrile. Medical History Past Medical History: Diagnosis Date Essential (primary) hypertension Heart failure (HCC) Type 2 diabetes mellitus without complications (HCC) Surgical History Past Surgical History: Procedure Laterality Date LEG AMPUTATION ABOVE KNEE Left 12/05/2022 Left; AMPUTATION ABOVE LEFT KNEE Leg Amputation, Below Knee Left 12/02/2022 Left; LEFT ANKLE DISARTICULATION LEVEL 2 @ 2220 Social History Living situation: Permanent resident at [facility] HIV status: Negative 02/24/2024 Social History Socioeconomic History Marital status: Single Tobacco Use Smoking status: Former Types: Cigarettes Start date: 2010 Smokeless tobacco: Never Tobacco comments: Quit 4-5 months after starting Vaping Use Vaping Use: Never used Substance and Sexual Activity Alcohol use: Not Currently Comment: Occassionally Drug use: Not Currently Types: Marijuana Comment: At age 20 for 4-5 months Sexual activity: Not Currently Immunizations: Immunization History Administered Date(s) Administered DTP, [...] Review of Systems Review of Systems Constitutional: Negative. HENT: Negative. Eyes: Blindness Respiratory: Negative. Cardiovascular: Negative. Gastrointestinal: Negative. Genitourinary: Negative. Musculoskeletal: Left shoulder pain S/p Left AKA Right heel ulcer, chronic Skin: Itching with right HD IJ dressing Neurological: Negative. Endo/Heme/Allergies: Negative. Psychiatric/Behavioral: Negative. Allergies No Known Allergies Antimicrobial History Current Antibiotics IV vancomycin (05/24/2024 - present) IV cefepime (05/24/2024 - present) Prior Antibiotics At [facility] Prior Antibiotics at OSH PO Linezolid (Completed 04/2024) Home Medications Prior to Admission medications Medication Sig Start Date End Date Taking? Authorizing Provider acetaminophen (Tylenol) 500 MG tablet Take 1 (one) tablet by mouth every 4 hours Maximum allowable Acetaminophen amount = 4 Grams (4000 mg) / 24 hours. Patient not taking: Reported on 05/23/2024 03/02/24 Martine Morrissey MD Alcohol Swabs (Alcohol [...] for Constipation Patient not taking: Reported on 05/23/2024 02/28/24 Geronimo Burleson MD blood glucose (OneTouch Verio) test strip USE ONE STRIP TO TEST BLOOD SUGAR FOUR TIMES DAILY 12/12/22Amanda Georges MD Blood Glucose Monitoring Suppl (OneTouch Verio Reflect) w/Device KIT Use 1 kit 4 times daily USE METER TO CHECK BLOOD GLUCOSE FOUR TIMES DAILY Reasons: CALL [facility] WHEN DELIVERING X4364 12/12/22 Amanda Georges MD carvedilol (Coreg) 12.5 MG tablet Take 1 (one) tablet by mouth 2 times daily with morning and evening meal 12/12/22 Yes Rosi Menard V., TAPPING MACHINE OPERATOR 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 FeroSul 325 (65 Fe) MG tablet Take [...] 05/09/23 Yes Joe Vargas MD nystatin (Mycostatin) 162000 UNIT/GM powder Apply to affected area 3 times daily 12/12/22 Yes Rosi Menard V., TAPPING MACHINE OPERATOR [employer]LEEROY polyethylene glycol 3350 (Miralax) 17 g packet [...] with meals 02/28/24 Yes Geronimo Burleson MD Objective Vitals BP 142/84 Pulse 87 Temp 98.4 ??F (36.9 ??C) (Oral) Resp 14 Ht 1.829 m (6') Wt 93.4 kg (205 lb 14.6 oz) SpO2 99% Temp (24hrs), Av.1 ??F (36.7 ??C), Min:97.9 ??F (36.6 ??C), Max:98.4 ??F (36.9 ??C) Physical Exam PHYSICAL EXAM General: Alert, no distress, not toxic appearing, Sitting up on the edge of the bed eating lunch and appears comfortable. Head: Normocephalic, atraumatic EENT: Patient blind. Left eye with subconjunctival hemorrhage (chronic). Nose Normal. Lungs: Breathing comfortably and in no acute distress. Extremities: Right shoulder normal. Left shoulder with pain to the lateral paraspinal musculature and top of the shoulder joint, no tenderness to anterior left shoulder joint. Decreased active ROM ofright shoulder, uses accessory muscles to raise shoulder. Right foot with ulcer present. Left AKA with no signs of infection. Skin: No rashes. Neurologic: Alert and oriented x 3, moving all extremities Psychiatry: Appropriate mood/affect Lines: right HD IJ, dressing in placed. PIV left forearm Lab Review CBC: Recent Labs Component Name 05/31/24 0605 05/30/24 0452 05/29/24 0408 WBC 8.9 9.3 7.7 RBC 3.41* 3.62* 3.67* HGB 10.1* 10.6* 10.8* HCT 33.5* 35.7 36.1 MCV 98.2* 98.6* 98.4* BMP: Recent Labs Component Name 05/31/24 0605 05/30/24 0452 05/29/24 0408 05/25/24 0643 05/24/24 0625 02/23/24 0737 02/22/24221306/10/23 0939 NA 136 137 138 - 139 - 136 143 CL 101 102 104 - 104 - 100 110* CO2 29 29 25 - 26 - 26 25 BUN 37* 28* 43* - 33* - 21 8 CREATININE 5.07* 3.67* 4.81* - 3.64* - 4.88* 1.96* ALB 2.0* 2.0* 2.2* - 1.9* - 1.5* 1.5* PROT - - - - 7.2 - 8.1 5.8* - = values in this interval not displayed. estimated creatinine clearance is 20.6 mL/min (A) (by C-G formula based on SCr of 5.07 mg/dL (H)). LFTs: Recent Labs Component Name [...] not displayed. Coagulation: Recent Labs Component Name 02/22/24 2214 04/26/23 0629 PT 14.6 16.3* INR 1.2 1.3 PTT - 29.8 ESR: Recent Labs Component Name 05/24/24 0548 02/23/24 0737 06/10/23 0939 ESR 114* 116* 57* CRP: Recent Labs Component Name 05/24/24 0625 02/23/24 0737 06/10/23 0939 CRP 1.4* 8.3* <0.5 CK: No results for input(s): CK in the last 63105 hours. Microbiology, Imaging and other diagnostic tests MICROBIOLOGY: Blood culture: 05/20/2024: OSH No growth Aspiration Left shoulder OSH 05/21/2024: Gram stain (no organisms, many WBCs); Culture no growth Aspiration Left shoulder - [facility] 05/24/2024: - Culture: No growth, no organisms on gram stain. - Synovial fluid Latest Reference Range & Units 05/24/24 15:05 Source Fluid Synovial Synovial Color Fluid RED Appearance Fluid BLOODY Total Nucleated Cells Fluid <=200 x10E6/L 6,498 (H) Neutrophils % Fluid % 83 Lymphocyte % Fluid % 9 Macrophage % Fluid % 8 Cells Counted Fluid x10E6/L 100 RBC Fluid Reference Range Not Established x10E6/L 610,000 (H): Data is abnormally high Other Serologies: HISTOPATHOLOGY: None at this admission IMAGING & PROCEDURES: Pertinent images independently reviewed; report in chart MRI left shoulder wwo contrast (05/28/2024): Impression: Distended distal subacromial subdeltoid bursa with [...] of the shoulder joint or acromioclavicular joint. XR Left shoulder (05/24/2024): IMPRESSION: Suggestion of a lucency projecting approximately [...] osteomyelitis nor evidence of fracture nor dislocation. Associated attestation - Yovany Ramirez MD - 05/31/2024 9:52 PM CDT The patient was seen and evaluated with Roxanna Roht PA-C. I agree with the findings as described in the note, including the history, interval changes, ROS, examination, objective data interpretation, impression and plan as documented, though specifically I note the followin33 year old female with PMH of ESRD on hemodialysis TTS via R IJ Permcath (HD initiated 7 months ago per patient), HTN, HFpEF, T2DM, blindness, chronic right heel non healing wound with osteomyelitis, s/p left BKA, presenting on 05/23/2024 as an OSH transfer for management of osteomyelitis of left shoulder. Left shoulder subacromial-subdeltoid bursitis: infectious bursitis, vs inflammatory arthritides related (such as RA), vs metabolic disorder related (such as diabetes, etc.), vs osteoarthritis related: 05/28/2024 MRI Left Shoulder findings consistent with bursitis. Etiology still unclear. In terms of infectious related etiologies, could be from partially treated infection, or re-infection potentially from (1) chronic right heel non healing wound; (2) R IJ Permcath related infection. Non infection related concerning as well. Appreciate Rheumatology and Medicine team further input. 05/24/2024 aspiration of the left shoulder with Ortho, 50 mL of bloody and purulent fluid was aspirated (was on IV vancomycin and cefepime at OSH), fluid total nucleated cells only ~6500 (not typicalinfectious picture, but this was after several days of Abx); Gram stain no organisms seen, culturesno growth. Continue IV vancomycin and IV cefepime for now. Can continue empiric Abx for a duration up to ~4 weeks and monitor response to treatment. Follow further plan from orthopedic surgery. History of MRSA bacteremia (02/16/2024) c/b left axillary abscess s/p I&D and a short course ofPO antibiotics; left pectoralis major abscesses, and left shoulder septic arthritis and osteomyelitis: S/p abscess near left shoulder aspiration (11 mL pus) on 02/25/2024, Gram stain with no organisms and culture negative. Was treated with IV vancomycin ->PO linezolid, 6 weeks total through 04/06/2024. Image (CT or MRI) was not obtained at the end of 6 weeks of antibiotics to confirm resolution of the abscesses. Chronic right heel non healing wound with chronic osteomyelitis: NORMA right lower extremity within normal limits T2DM c/b blindness. ESRD on hemodialysis TTS via R IJ Permcath. Discussed the importance to keep the dressing in place at the exit site to keep it dry and clean. Thank you for allowing us to participate in the care of this patient. ..Yovany Ramirez MD, MPH, SP Infectious Diseases Attending Pager Number: [phone] * Ruby Rodgers RN - 05/31/2024 1:11 AM CDT Problem: Pain/Discomfort Goal: Patient exhibits [...] in the flowsheet documentation) Outcome: Progressing Problem: Tissue injury due to various disease processes Goal: Provide optimal wound healing environment Outcome: Progressing Problem: Tissue Injury due to Inadequate Arterial Perfusion Goal: Maintain Clean/Stable wound environment Outcome: Progressing Problem: Tissue Injury due to Venous Hypertension Goal: Maintain Infection Free Stable Wound Environment Outcome: Progressing Problem: Tissue Injury Due to Loss of Protective Sensation Goal: Protect Injured Tissue and Prevent Further Injury Outcome: Progressing Problem: Tissue Injury Due to External Forces of Pressure, Friction, and Shear Goal: Protect Skin from External Forces Outcome: Progressing Goal: Maintain and Improve Tissue Tolerance to Pressure Outcome: Progressing Problem: Nutrient: Increased nutrient needs (specify) Goal: Total intake will meet estimated nutrient needs Outcome: Progressing Problem: Skin Integrity Goal: Skin integrity is maintained or improved Outcome: Progressing Problem: Hemodynamic Status/Cardiac Output Goal: Patient has stable vital signs and fluid balance Outcome: Progressing Problem: Fluid and Electrolyte Imbalance Goal: Fluid and electrolyte balance are achieved/maintained Outcome: Progressing Problem: Infection Goal: Signs and symptoms of infections are decreased or avoided Outcome: Progressing Problem: Transfers Goal: STG - Patient will transfer sit to and from stand Outcome: Progressing Problem: Balance Goal: LTG - Patient will demonstrate Intervention to enhance balance for safe completion of daily activities Outcome: Progressing * Tao Frances DO - 05/30/2024 1:22 PM CDT [facility] INTERNAL MEDICINE PROGRESS NOTE Patient: Gay Canales Sex: female Age: [age] year old Date of : 1990 Date of Admission: 05/23/2024 Date: 05/30/2024 LOS: 7 SUBJECTIVE Interval History: No acute events overnight. Patient informed of possible IR drainage of bursitis. Patient agreeable to plan. Hospital Course: Per chart review with edits: Patient is a 33F with PMHx of T2DM, HTN, HFpEF, chronic right heel ulcer/osteomyelitis, prior L BKA, ESRD on HD TTS, possible sickle cell disease who presents from OSH with concerns of L shoulder septic arthritis. At OSH orthopedic surgery aspirated purulent fluid from her L shoulder. She was transferred to [facility] from further evaluation of her L shoulder. ID and orthopedic surgery was consulted on arrival. She was started on IC vanc and cefepime. Rheumatology and hematology were consulted for inflammatory arthropathy and sickle cell disease respectively. Rheumatology without concerns for rheumatologic process at this time. Hemoglobin electrophoresis unremarkable for sickle cell disease or sickle cell trait. MRI showed infectious bursitis, orthopedic surgery without any acute surgical intervention. OBJECTIVE Vital Signs: Vitals: 05/29/24 2020 05/30/24 0012 05/30/24 0733 05/30/24 1138 BP: 108/62 137/71 126/76 Pulse: 85 88 88 Resp: 18 16 16 16 Temp: 97.8 ??F (36.6 ??C) 98.3 ??F (36.8 ??C) 98.1 ??F (36.7 ??C) SpO2: 96% 93% 96% 93% Weight: Height: Temp Min: 97.6 ??F (36.4 ??C) Max: 99.1 ??F (37.3 ??C), Pulse Min: 76 Max: 95, Resp Min: 14 Max: 20, BP Min: 78/57 Max: 171/95 Intake & Output: In: 222 [P.O.:222] Out: 400 Physical Exam: Physical Exam HENT: Head: Normocephalic and atraumatic. Eyes: General: No scleral icterus. Cardiovascular: Rate and Rhythm: Normal rate and regular rhythm. Heart sounds: No murmur heard. No friction rub. No gallop. Pulmonary: Breath sounds: No wheezing, rhonchi or rales. Abdominal: Tenderness: There is no abdominal tenderness. Musculoskeletal: Right lower leg: No edema. Left lower leg: No edema. Comments: Painful L shoulder ROM Neurological: General: No focal deficit present. Mental Status: She is oriented to person, place, and time. Current Medications: Scheduled: 0.9% NaCl 3 mL Intracatheter q8h amLODIPine 10 mg Oral QDAY carvedilol 12.5 mg Oral BID WC cefepime 2 g Intravenous , & SAT furosemide 40 mg Oral MON, FRI AND FRI gabapentin 100 mg Oral TID heparin 5,000 Units Subcutaneous BID insulin aspart 0-12 Units Subcutaneous TID WC insulin glargine 8 Units Subcutaneous QDAY lisinopril 20 mg Oral QDAY polyethylene glycol 3350 17 g Oral QDAY renal vitamin 1 tablet Oral QDAY sennosides 17.2 mg Oral QDAY sevelamer carbonate 800 mg Oral TID WC vancomycin (VANCOCIN) IV dose per pharmacy Does not apply DIRECTED Continuous: PRN: SALINE LOCK, INSERT AND MAINTAIN AND 0.9% NaCl AND 0.9% NaCl acetaminophen dextrose IV for hypoglycemia OR dextrose IV for hypoglycemia OR glucagon glucose (Diabetic Use) gel heparin HYDROmorphone ondansetron (disintegrating) OR ondansetron oxyCODONE (immediate release) OR oxyCODONE (immediate release) Significant Lab Results: reviewed Microbiology: reviewed Imaging & Studies: reviewed ASSESSMENT & PLAN Osteomyelitis of left shoulder, unspecified type (HCC) (POA: Yes) ESRD (end stage renal disease) (HCC) (POA: Yes) Type 2 diabetes mellitus with diabetic polyneuropathy (HCC) (POA: Yes) #L shoulder pain # infectious bursitis - ID following - on IV cefepime and vanc; cefe dosed per nephrology note (2g after HD) - no acute surgical intervention post MRI per ortho - pain management tylenol q6h prn, tiered oxy 5-10 mg q4h prn and dilaudid breakthrough q6hprn - will likely need IV antibiotics until 06/21/24 per ID - ortho recommended IR drainage of bursitis - contact IR tomorrow for nonemergent drainage of bursitis - continue to monitor #sickle cell disease vs trait - hemoglobin electrophoresis unremarkable for sickle cell disease and sickle cell trait #T2DM #diabetic neuropathy - diabetic diet - lantus 8u - accuchecks and SSI AC - gabapentin 100 mg TID #chronic R heel ulcer - hx IV abx in 2022 - wound care following, recs in their note - NORMA completed per RN plan of care, 1.1 WNL #ESRD on HD - nephrology following - continue sevelemer #HFpEF #HTN - daily weights - continue carvedilol, lasix, lisinopril, and amlodipine #JIAN - hold all iron supplementation due to concerns of active infection - CTM and transfuse if Hgb < 7 Code: FULL Diet: diabetic Electrolytes: Replete PRN PPx: heparin Access: PIV Dispo: pending further workup, likely return to facility The above assessment and plan will be discussed with the attending. This note is not final until attested by attending physician. Tao Frances DO Internal Medicine Resident [facility] 05/30/2024 1:22 PM Associated attestation - Hunter Chin III, MD - 06/01/2024 12:59 PM CDT I have chart reviewed, seen, and examined the patient. Together the resident and I formulated a therapeutic plan for this patient based on their subjective and objective findings, including any new lab and image findings. I agree with the assessment and plan as documented unless specifically mentioned below. Date of Service: Date of Resident's note Hunter Chin MD [facility] 06/01/24 12:59 PM * Ildefonso Perez RN - 05/30/2024 11:21 AM CDT Problem: Pain/Discomfort Goal: Patient exhibits reduced pain/discomfort as evidenced by pain scores Outcome: Not Progressing Goal: Patient uses pharmacological and non-pharmacological pain management strategies. Outcome: Not Progressing Problem: Pain/Discomfort Goal: Patient uses pharmacological and non-pharmacological pain management strategies. Outcome: Not Progressing Problem: Fall Risk Goal: Fall risk and fall related injury risk are minimized (interventions related to the fall risk can be found in the flowsheet documentation) Outcome: Progressing Problem: Tissue injury due to various disease processes Goal: Provide optimal wound healing environment Outcome: Progressing * Ruby Rodgers RN - 05/30/2024 2:28 AM CDT Problem: Pain/Discomfort Goal: Patient exhibits [...] in the flowsheet documentation) Outcome: Progressing Problem: Tissue injury due to various disease processes Goal: Provide optimal wound healing environment Outcome: Progressing Problem: Tissue Injury due to Inadequate Arterial Perfusion Goal: Maintain Clean/Stable wound environment Outcome: Progressing Problem: Tissue Injury due to Venous Hypertension Goal: Maintain Infection Free Stable Wound Environment Outcome: Progressing Problem: Tissue Injury Due to Loss of Protective Sensation Goal: Protect Injured Tissue and Prevent Further Injury Outcome: Progressing Problem: Tissue Injury Due to External Forces of Pressure, Friction, and Shear Goal: Protect Skin from External Forces Outcome: Progressing Goal: Maintain and Improve Tissue Tolerance to Pressure Outcome: Progressing Problem: Nutrient: Increased nutrient needs (specify) Goal: Total intake will meet estimated nutrient needs Outcome: Progressing Problem: Skin Integrity Goal: Skin integrity is maintained or improved Outcome: Progressing Problem: Hemodynamic Status/Cardiac Output Goal: Patient has stable vital signs and fluid balance Outcome: Progressing Problem: Fluid and Electrolyte Imbalance Goal: Fluid and electrolyte balance are achieved/maintained Outcome: Progressing Problem: Infection Goal: Signs and symptoms of infections are decreased or avoided Outcome: Progressing Problem: Transfers Goal: STG - Patient will transfer sit to and from stand Outcome: Progressing Problem: Balance Goal: LTG - Patient will demonstrate Intervention to enhance balance for safe completion of daily activities Outcome: Progressing * Cuca Torres RN - 05/29/2024 5:17 PM CDT Ankle Brachial Index Right arm BP: 130/82 Right ankle BP: 149/68 149/130= 1.1 NORMA: 1.1 * Marvin Suarez RN - 05/29/2024 1:09 PM CDT 05/29/24 1256 Post Hemodialysis Patient Response to Treatment tolerated fair Post Dialysis Patient Status Treatment Completed Ultrafiltration Amount (ml) 400 Dialyzer Clearance Lightly streaked Amount of blood processed (Liters) 69.5 Post Hemodialysis Comment otherwise stable tx, blood rinsed back, cvc locked with heparin Problem: Hemodynamic Status/Cardiac Output Goal: Patient has stable vital signs and fluid balance Outcome: Progressing Problem: Fluid and Electrolyte Imbalance Goal: Fluid and electrolyte balance are achieved/maintained Outcome: Progressing Problem: Infection Goal: Signs and symptoms of infections are decreased or avoided Outcome: Progressing * Jimmy Johnston MD - 05/29/2024 12:31 PM CDT Orthopaedic Trauma Surgery Plan of Care Note Gay Canales MRI consistent with sub-deltoid bursitis. No intra-articular involvement Weight bearing Status: LUE WBAT Diet: ok No acute ortho intervention Ortho recommends IV abx and IR drainage Remainder of plan per progress note Jimmy Johnston MD Orthopaedic Surgery, PGY-1 * Tao Frances DO - 05/29/2024 7:58 AM CDT [facility] INTERNAL MEDICINE PROGRESS NOTE Patient: Gay Canales Sex: female Age: [age] year old Date of : 1990 Date of Admission: 05/23/2024 Date: 05/29/2024 LOS: 6 SUBJECTIVE Interval History: Patient resting comfortably in dialysis. She had concerns about her pain regimen on discharge, informed that inflammation likely improve with antibiotic therapy. We will assess closer to discharge. Hospital Course: Per chart review with edits: Patient is a 33F with PMHx of T2DM, HTN, HFpEF, chronic right heel ulcer/osteomyelitis, prior L BKA, ESRD on HD TTS, possible sickle cell disease who presents from OSH with concerns of L shoulder septic arthritis. At OSH orthopedic surgery aspirated purulent fluid from her L shoulder. She was transferred to [facility] from further evaluation of her L shoulder. ID and orthopedic surgery was consulted on arrival. She was started on IC vanc and cefepime. Rheumatology and hematology were consulted for inflammatory arthropathy and sickle cell disease respectively. Rheumatology without concerns for rheumatologic process at this time. Hemoglobin electrophoresis unremarkable for sickle cell disease or sickle cell trait. MRI showed infectious bursitis, orthopedic surgery without any acute surgical intervention. OBJECTIVE Vital Signs: Vitals: 05/28/24 1516 05/28/24 1751 05/28/24 1943 05/28/24 2321 BP: 137/87 137/87 104/65 129/81 Pulse: 78 78 79 77 Resp: 17 18 Temp: 97.7 ??F (36.5 ??C) 98 ??F (36.7 ??C) 98.2 ??F (36.8 ??C) SpO2: 93% 96% 97% Weight: Height: Temp Min: 97.6 ??F (36.4 ??C) Max: 99.1 ??F (37.3 ??C), Pulse Min: 76 Max: 95, Resp Min: 14 Max: 20, BP Min: 104/65 Max: 171/95 Intake & Output: In: 240 [P.O.:240] Out: 0 Physical Exam: Physical Exam HENT: Head: Normocephalic and atraumatic. Eyes: General: No scleral icterus. Cardiovascular: Rate and Rhythm: Normal rate and regular rhythm. Heart sounds: No murmur heard. No friction rub. No gallop. Pulmonary: Breath sounds: No wheezing, rhonchi or rales. Abdominal: Tenderness: There is no abdominal tenderness. Musculoskeletal: Right lower leg: No edema. Left lower leg: No edema. Comments: Painful L shoulder ROM Neurological: General: No focal deficit present. Mental Status: She is oriented to person, place, and time. Current Medications: Scheduled: 0.9% NaCl 3 mL Intracatheter q8h amLODIPine 10 mg Oral QDAY carvedilol 12.5 mg Oral BID WC cefepime 2 g Intravenous , & SAT furosemide 40 mg Oral MON, FRI AND FRI gabapentin 100 mg Oral TID gadoterate meglumine Intravenous Contrast - Once heparin 5,000 Units Subcutaneous BID insulin aspart 0-12 Units Subcutaneous TID WC insulin glargine 8 Units Subcutaneous QDAY lisinopril 20 mg Oral QDAY polyethylene glycol 3350 17 g Oral QDAY renal vitamin 1 tablet Oral QDAY sennosides 17.2 mg Oral QDAY sevelamer carbonate 800 mg Oral TID WC vancomycin (VANCOCIN) IV dose per pharmacy Does not apply DIRECTED Continuous: PRN: SALINE LOCK, INSERT AND MAINTAIN AND 0.9% NaCl AND 0.9% NaCl acetaminophen dextrose IV for hypoglycemia OR dextrose IV for hypoglycemia OR glucagon glucose (Diabetic Use) gel heparin HYDROmorphone ondansetron (disintegrating) OR ondansetron oxyCODONE (immediate release) OR oxyCODONE (immediate release) Significant Lab Results: reviewed Microbiology: reviewed Imaging & Studies: reviewed ASSESSMENT & PLAN Osteomyelitis of left shoulder, unspecified type (HCC) (POA: Yes) ESRD (end stage renal disease) (HCC) (POA: Yes) Type 2 diabetes mellitus with diabetic polyneuropathy (HCC) (POA: Yes) #L shoulder pain # infectious bursitis - ID following - on IV cefepime and vanc; cefe dosed per nephrology note (2g after HD) - no acute surgical intervention post MRI per ortho - pain management tylenol q6h prn, tiered oxy 5-10 mg q4h prn and dilaudid breakthrough q6hprn - oxy frequency increase and dilaudid frequency decreased to wean off IV pain meds in preparation for discharge - will likely need IV antibiotics until 06/21/24 per ID - continue to monitor #sickle cell disease vs trait - hemoglobin electrophoresis unremarkable for sickle cell disease and sickle cell trait #T2DM #diabetic neuropathy - diabetic diet - lantus 8u - accuchecks and SSI AC - gabapentin 100 mg TID #chronic R heel ulcer - hx IV abx in 2022 - wound care following, recs in their note - NORMA ordered for investigation of LE vasculature #ESRD on HD - nephrology following - continue sevelemer #HFpEF #HTN - daily weights - continue carvedilol, lasix, lisinopril, and amlodipine #JIAN - hold all iron supplementation due to concerns of active infection - CTM and transfuse if Hgb < 7 Code: FULL Diet: diabetic Electrolytes: Replete PRN PPx: heparin Access: PIV Dispo: pending further workup, likely return to facility The above assessment and plan will be discussed with the attending. This note is not final until attested by attending physician. Tao Frances DO Internal Medicine Resident [facility] 05/29/2024 7:58 AM Associated attestation - Hunter Chin III, MD - 05/30/2024 8:00 AM CDT I have chart reviewed, seen, and examined the patient. Together the resident and I formulated a therapeutic plan for this patient based on their subjective and objective findings, including any new lab and image findings. I agree with the assessment and plan as documented unless specifically mentioned below. Date of Service: Date of Resident's note Hunter Chin MD [employer]z Cutter, Hospital Medicine [facility] [employer] [facility] [employer] [facility] [employer] 05/30/24 8:00 AM * Ritesh Butler, PharmD - 05/29/2024 7:55 AM CDT ACTIVE CONSULTS TO PHARMACY/DISEASE STATE MONITORING Pharmacy Consult: Vancomycin ASSESSMENT/PLAN Indication: documented Bone/joint of chronic R heel ulcer/osteo (stable) and L shoulder osteo with Goal Level: Pre-HD concnetration of 15-20 ID consulted/following: Yes Assessment: Day of treatment: 15 End of treatment date: to be determined Current dosing regimen: 1000 mg,dosing post HD sessions Recent Labs Component Name 05/29/24 0408 05/28/24 0335 05/27/24 0659 05/26/24 0602 05/24/24 0625 05/24/24 0548 05/22/23 0521 05/21/23 0450 05/20/23 0918 05/17/23 2151 05/09/23 0357 05/08/23 0841 04/29/23 0338 04/28/23 0319 04/27/232018 CREATININE 4.81* 3.70* 4.15* 3.22* - - - 1.62* - - 1.83* - - 1.39* - BUN 43* 26 31* 22 - - - 13 - - 17 - - 13 - VANCORNDM 23.0 - 14.8 - - 20.5 - - - - - - - [...] MRSA positive: Yes, hx of MRSA bacteremia 02/16/24 c/b left pectoralis major abscesses, and left shoulder septic arthritis and osteomyelitis: S/p abscess near L-shoulder aspiration (11 mL pus) on 02/25/2024, Gram stain showed no organisms and culture negative. Was treated with IV vancomycin ->linezolid PO, 6 weeks total through 04/06/2024. However, image (CT or MRI) was not obtained at the end of 6 weeks of antibiotics to confirm resolution of the abscess. Other pertinent micro: No Renal: Considered on IHD at this time as patient is on intermittent hemodialysis (iHD) with last session 05/27 and next planned today 05/29. Level(s): See chart above Pre-HD vancomycin random concentration was 23. Slightly above goal of 15-20. Patient is on iHD with expected clearance of 20-30% per iHD session, the level reported above is expected to be within the supratherapeutic range after next HD session. Plan Dosing: Will adjust dose to 750 mg dosing post HD sessions. Predict pre-HD concentration of 15-20. Monitoring Will order a vancomycin random level prior to iHD session on 06/03/24 at 0400 and adjust regimen if indicated. Can do weekly pre-HD concentrations thereafter and adjust as needed. Continue to monitor patient???s renal function and cultures as needed. Ritesh Butler, PharmTerri 05/29/2024 7:[address] [facility] Vancomycin Guideline SUBJECTIVE/OBJECTIVE Gay Canales is a 33 year old female. Height: 6' (182.9 cm) Wt 93.4 kg (205 lb 14.6 oz) Body mass index is 27.93 kg/m??. Vancomycin Administrations from MAR (last 72 hours) Date/Time Action Medication Dose Rate 05/27/24 1856 $ New Bag/Syringe vancomycin (Vancocin) 1,000 mg in 0.9% NaCl IV 250 mL IVPB 1,000 mg 250 mL/hr * Marvin Suarez RN - 05/29/2024 6:14 AM CDT REPORT BEFORE DIALYSIS Diagnosis (BOBBY/CKF):CKF Non-Renal Diagnosis:Osteomyelitis of left shoulder Isolation:No active isolations Does patient have signs or symptoms of respiratory infection (fever, cough, shortness of breath):No Allergies:No Known Allergies Code Status:Full Code Orientation Status:x4 On telemetry/Rhythm:no Oxygen:RA Given any medications:see mar Need for pain medications:lt shoulder Blood pressure issues:no 120s last On any drips:no Is patient diabetic:yes Any labs to draw:no Any other procedures today: no Any concerns about this patient:no Any medications to be given with dialysis: hep Due date of next [employer] Line Dressing change: 06/03/24 or before * Felipe Arenas DO - 05/29/2024 5:01 AM CDT Orthopaedic Trauma Surgery Daily Progress Note Name: Gay Canales Age: [age] year old Room: 534/01 Date Admitted: 05/23/2024 Interval History: Patient seen and examined on rounds this AM. No acute events overnight. Pain is controlled. No new numbness or tingling. Labs CBC Recent Labs Component Name 05/29/24 0408 05/28/24 0335 05/27/24 0659 WBC 7.7 7.3 6.9 HGB 10.8* 10.8* 10.8* HCT 36.1 35.3 35.2 PLTCOUNT 337 330 374 BMP Recent Labs Component Name 05/28/24 0335 05/27/24 0659 05/26/24 0602 05/24/24 0625 03/02/24 0338 03/01/24 0310 02/29/24 0127 NA 138 138 137 - 137 135* 135* POTASSIUM 4.7* 4.7* 4.4 - 5.5* 4.9* 4.4 CL 101 105 104 - 102 106 104 CO2 30* 28 26 - 25 21* 24 BUN 26 31* 22 - 39* 28* 16 CREATININE 3.70* 4.15* 3.22* - 7.43* 5.80* 3.73* GLUCOSE 152* 119* 104 - 92 112 141* CALCIUM 8.7 8.3* 8.5 - 8.8 8.8 8.3* MAGNESIUM - - - - 2.4 2.1 2.0 PHOS 5.2* 5.6* 4.8 - 7.3* 6.1* 4.1 - = values in this interval not displayed. Coags Recent Labs Component Name 02/22/24 2214 04/26/23 0629 PT 14.6 16.3* INR 1.2 1.3 PTT - 29.8 Vitamin D Recent Labs Component Name 02/25/24 0110 [id number] 12.3* Vitals BP 129/81 (BP Location: Right arm, Patient Position: Lying) Pulse 77 Temp 98.2 ??F (36.8 ??C) (Oral) Resp 18 Ht 1.829 m (6') Wt 93.4 kg (205 lb 14.6 oz) SpO2 97% Temp (24hrs), Av.1 ??F (36.7 ??C), Min:97.7 ??F (36.5 ??C), Max:98.5 ??F (36.9 ??C) Physical Exam General appearance: Alert, cooperative, and no apparent distress Left upper extremity: Fires motor R/M/U/AIN/PIN, Sensation intact in R/M/U nerve distributions distally, extremity warm and well perfused. Left shoulder abduction to 90 and flexion to 110 degrees. Assessment and Plan: Gay Canales is a 33 year old female consulted for possible L shoulder septic arthritis on MRI Surgeries: none Plan: No clear evidence of septic arthritis of the shoulder consistent with prior joint aspiration. Concern for possible infectious bursitis. No acute orthopedic intervention planned. Continue medical management. Could consider IR drainage. For questions, please contact Ortho Trauma APPs or send epic chat to [facility]. For urgent questions, please page Ortho Trauma service pager through [employer]. Levi Marrufo MD 05/29/2024 5:02 AM This patient was discussed with the resident/PA and agree with the above. Previous aspiration negative for infectious process. MRI shoulder shows fluid collection. RecommendIR aspiration as pt is a poor surgical candidate at high risk for wound complications Felipe Arenas DO * Estela Whiteside DO - 05/28/2024 6:44 PM CDT Ms. Canales is a 33-year-old lady being followed by our service due to a question of possible sicklecell trait/disease. Please see consult note on 05/26 for more details. Interval update: hemoglobin electrophoresis resulted as normal. We reassured pt today that she does not have sickle cell trait orsickle cell disease. Hematology/oncology will sign off at this time, but please don't hesitate to reach back out if we can be of further assistance. Estela Whiteside DO, PGY-5 Hematology/Oncology Fellow [facility] * Charlie Sutherland MD - 05/28/2024 5:51 PM CDT Plan of care MRI reviewed. No clear evidence of septic arthritis of the shoulder consistent with prior joint aspiration. Concern for possible infectious bursitis. No acute orthopedic intervention planned. Continue medical management. Could consider IR drainage. Will discuss with attending surgeons in AM. [place] NPO at midnight pending this discussion. Will update plan. * Tao Frances DO - 05/28/2024 3:54 PM CDT [facility] INTERNAL MEDICINE PROGRESS NOTE Patient: Gay Canales Sex: female Age: [age] year old Date of : 1990 Date of Admission: 05/23/2024 Date: 05/28/2024 LOS: 5 SUBJECTIVE Interval History: No acute events overnight. Patient resting comfortably in bed. No concerns at this time. Hospital Course: Per chart review with edits: Patient is a 33F with PMHx of T2DM, HTN, HFpEF, chronic right heel ulcer/osteomyelitis, prior L BKA, ESRD on HD TTS, possible sickle cell disease who presents from OSH with concerns of L shoulder septic arthritis. At OSH orthopedic surgery aspirated purulent fluid from her L shoulder. She was transferred to [facility] from further evaluation of her L shoulder. ID and orthopedic surgery was consulted on arrival. She was started on IC vanc and cefepime. Rheumatology and hematology were consulted for inflammatory arthropathy and sickle cell disease respectively. OBJECTIVE Vital Signs: Vitals: 05/28/24 0353 05/28/24 0901 05/28/24 1102 05/28/24 1516 BP: 126/75 142/86 Pulse: 77 86 Resp: 20 19 17 Temp: 98.3 ??F (36.8 ??C) 98.5 ??F (36.9 ??C) SpO2: 94% 98% Weight: Height: Temp Min: 97.6 ??F (36.4 ??C) Max: 99.1 ??F (37.3 ??C), Pulse Min: 76 Max: 95, Resp Min: 14 Max: 20, BP Min: 106/67 Max: 171/95 Intake & Output: In: 600 [P.O.:600] Out: 2600 Physical Exam: Physical Exam HENT: Head: Normocephalic and atraumatic. Eyes: General: No scleral icterus. Cardiovascular: Rate and Rhythm: Normal rate and regular rhythm. Heart sounds: No murmur heard. No friction rub. No gallop. Pulmonary: Breath sounds: No wheezing, rhonchi or rales. Abdominal: Tenderness: There is no abdominal tenderness. Musculoskeletal: Right lower leg: No edema. Left lower leg: No edema. Comments: Painful L shoulder ROM Neurological: General: No focal deficit present. Mental Status: She is oriented to person, place, and time. Current Medications: Scheduled: 0.9% NaCl 3 mL Intracatheter q8h amLODIPine 10 mg Oral QDAY carvedilol 12.5 mg Oral BID WC cefepime 2 g Intravenous TU, THUR & SAT furosemide 40 mg Oral MON, WED AND FRI gabapentin 100 mg Oral TID gadoterate meglumine Intravenous Contrast - Once heparin 5,000 Units Subcutaneous BID insulin aspart 0-12 Units Subcutaneous TID WC insulin glargine 8 Units Subcutaneous QDAY lisinopril 20 mg Oral QDAY renal vitamin 1 tablet Oral QDAY sennosides 8.6 mg Oral QDAY sevelamer carbonate 800 mg Oral TID WC vancomycin (VANCOCIN) IV dose per pharmacy Does not apply DIRECTED Continuous: PRN: SALINE LOCK, INSERT AND MAINTAIN AND 0.9% NaCl AND 0.9% NaCl acetaminophen dextrose IV for hypoglycemia OR dextrose IV for hypoglycemia OR glucagon glucose (Diabetic Use) gel heparin HYDROmorphone ondansetron (disintegrating) OR ondansetron oxyCODONE (immediate release) OR oxyCODONE (immediate release) polyethylene glycol 3350 Significant Lab Results: reviewed Microbiology: reviewed Imaging & Studies: reviewed ASSESSMENT & PLAN Osteomyelitis of left shoulder, unspecified type (HCC) (POA: Yes) ESRD (end stage renal disease) ([facility]) (POA: Yes) Type 2 diabetes mellitus with diabetic polyneuropathy (HCC) (POA: Yes) #L shoulder pain - possible 2/2 septic arthritis, inflammatory arthritis, osteomyelitis, osteonecrosis - ID and ortho consulted on arrival - on IV cefepime and vanc; cefe dosed per nephrology note (2g after HD) - no acute surgical intervention - pain management tylenol q6h prn, tiered oxy 5-10 mg q6h prn and dilaudid breakthrough - L shoulder MRI w completed today, consistent with infectious bursitis - ortho recs based on MRI appreciated - will likely need IV antibiotics until 06/21/24 per ID - continue to monitor #sickle cell disease vs trait - unclear diagnosis, noted in chart review - hematology consulted for further workup, appreciate recs - awaiting Hgb electrophoresis results, preliminarily negative for sickle cell disease #T2DM #diabetic neuropathy - diabetic diet - lantus 8u - accuchecks and SSI AC - gabapentin 100 mg TID #chronic R heel ulcer - hx IV abx in 2022 - wound care following, recs in their note - NORMA ordered for investigation of LE vasculature #ESRD on HD - nephrology following - continue sevelemer #HFpEF #HTN - daily weights - continue carvedilol, lasix, lisinopril, and amlodipine #JIAN - hold all iron supplementation due to concerns of active infection - CTM and transfuse if Hgb < 7 Code: FULL Diet: diabetic Electrolytes: Replete PRN PPx: heparin Access: PIV Dispo: pending further workup, likely return to facility The above assessment and plan will be discussed with the attending. This note is not final until attested by attending physician. Tao Frances DO Internal Medicine Resident [facility] 05/28/2024 3:54 PM Associated attestation - Hunter Chin III, MD - 05/29/2024 7:56 AM CDT I have chart reviewed, seen, and examined the patient. Together the resident and I formulated a therapeutic plan for this patient based on their subjective and objective findings, including any new lab and image findings. I agree with the assessment and plan as documented unless specifically mentioned below. Date of Service: Date of Resident's note Hunter Chin MD [facility], Hospital Medicine [facility] [employer] [facility] [employer] 05/29/24 7:56 AM * Bethanie Guerra OT - 05/28/2024 3:47 PM CDT [facility] Department of Physical Medicine & Rehabilitation Progress Note Patient: Gay Canales Med Record Number: [id number] Date of : 1990 Age: [age] year old 05/28/24 1500 Missed Visit Missed Visit Refused Patient refused therapy intervention due to Other (Comment);Fatigue (Patient reported she has completed all ADLs prior and now fatigued) * Roxanna Roth PA-C - 05/28/2024 1:27 PM CDT [facility] Infectious Diseases Inpatient Progress Note Patient Name: Gay Canales 1990 Room: [facility] Date of Admission: 05/23/2024 Date of Service: 05/28/2024 Primary Care Physician: CHERISE MARCELO PA-C Attending Physician: Hunter Chin III, MD Reason for Infectious Disease Consultation Left shoulder septic bursitis / osteomyelitis, antibiotic recommendations IMPRESSION Left shoulder septic bursitis / osteomyelitis History of MRSA bacteremia History of left pectoral abscess s/p I&D and antibiotic treatment, EOT 04/07/2024 Chronic right heel ulcer with chronic osteomyelitis DM2 ESRD on HD RECOMMENDATIONS - Continue IV vancomycin - Continue IV cefepime - Plan for 4 weeks of IV antibiotics from last date of left shoulder aspiration (05/24/2024 - EOT 06/21/2024). - Recommend NORMA right lower extremity, concerned for poor healing chronic right heel wound - Recommend re-engaging orthopedics for MRI findings left shoulder - Please obtain CBC w diff, CMP, ESR, CRP, vancomycin trough at least weekly while on IV antibiotics. - As part of routine screening, HCV antibody with reflex to HCV RNA quantitative (universally recommended per CDC guidelines) Note: Discussed with patient that concerned source of recurrent infections could be seeding from her chronic right foot wound to other joints. Will recommend vascular evaluation, if wound is unable to heal then patient may continue to get recurrent joint infections. Patient is higher risk for infection with ESRD and DM2 as these cause immunosuppression. There is also concern that patient has an underlying inflammatory arthropathy given recurrent shoulder joint septic arthritis and last admission right shoulder aspiration not concerning for septic arthritis. Primary team updated with above recommendations. Please call the Ortho ID pager [phone] with any questions. ..When patient is cleared for discharge, patient will be discharged on: IV vancomycin - pharmacy dosing IV cefepime with HD (2g, 2g, 2g on HD days). Duration of therapy is 4 weeks with EOT 06/21/2024 Obtain weekly Cbc with Diff, CMP, CRP, ESR, and vancomycin trough Fax weekly lab results to [facility] ID clinic on Fax no [phone] (Attn: Roxanna Roth PA-C and Dr. Carlson) If there any concerns, please call [facility] infectious disease clinic: phone Follow-up in [facility] ID clinic on: 06/22/2024 [facility] clinic [address] [place] [address] Clinic phone [phone] Clinic fax [phone] DISCUSSION Gay Canales is a 33 year old female with PMH of blindness, T2DM, HTN, chronic HFpEF, chronic right heel ulcer/osteomyelitis(tx only with IV abx) , prior left BKA, ESRD on HD (//Fri) and possible sickle cell disease, permanent residence at [facility]. Patient presented to [facility] on 05/23/2024 as OSH transfer for concerns of left shoulder septic bursitis / osteomyelitis. Left shoulder septic bursitis / osteomyelitis - 05/20/2024: Bcx no growth - 05/21/2024: S/p OSH left shoulder aspiration, culture no growth - 05/24/2024: S/p left shoulder aspiration. Synovial fluid with 6k nucleated cells, 83% neutrophils,610,000 RBCs. ?decreased nucleated cells due to antibiotic admin since 05/15/2024 vs. Inflammatory arthropathy. - 05/28/2024: MRI left shoulder consistent with septic bursitis (subacromial subdeltoid), no osteomyelitis - Per rheumatology, no signs of inflammatory arthropathy - On IV vancomycin / IV cefepime History of MRSA bacteremia History of left pectoral abscess s/p I&D and antibiotic treatment - Patient at increased risk for recurrent MRSA infection Chronic right heel ulcer with chronic osteomyelitis - does not appear infected at this time - No indication to treat chronic osteo with stable wound ?Sickle Cell - appreciate hematology input DM2 - A1C 6.5 on 02/23/2024 - Continue care per primary team ESRD on HD - Followed by nephrology - Need right IJ permacath dressing evaluated by nephrology due to itching CDC Screening - HIV negative 02/24/2024 - Recommend Hep C testing QTC: Not available Renal Function: Estimated Creatinine Clearance: 28.2 mL/min (A) (by C-G formula based on SCr of 3.7mg/dL (H)). Hardware: None Thank you for for this interesting consult. We will continue to follow and monitor with you closely. Please call the Ortho ID pager [phone] with any questions. I spent 35 mins in the care of this patient to include chart review, coordination of care, and patient interview / examination / education independent from the attending physician. I spent an additional 10 mins in discussion with attending physician Aldo regarding patient case. Patient case discussed with ID attending. JESSICA Sorensen, PAJose EnriqueC Division of Infectious Diseases Pager: [phone], [email or web address] - [employer] Secure Chat preferred ID Clinic ID Clinic Subjective History of Present Illness: Gay Canales is a 33 year old female with PMH of blindness, T2DM, HTN, chronic HFpEF, chronic right heel ulcer/osteomyelitis(tx only with IV abx) , prior left BKA, ESRD on HD (//Fri) and possible sickle cell disease, permanent residence at [facility]. Patient presented to [facility] on 05/23/2024 as OSH transfer for concerns of left shoulder septic bursitis / osteomyelitis. Per chart review and clarification with patient, she had a left axillary abscess in February 2024 which was treated with I&D and a short course of PO antibiotics. She has had progressive worsening of her shoulder pain. Presented to OSH (Loc) on 05/15/2024. CT left shoulder showed large complex subacromial / subdeltoid and subcoracoid bursal fluid collection associated with osteolysis at the coracoid process and under surface of the acromion consistent with septic bursitisand osteomyelitis. Patient started on IV vancomycin and cefepime at OSH. OSH records received with blood cultures from 05/20 with no growth. Orthopedic surgery at OSH aspirated 145 cc purulent / serosanguineous fluid from left shoulder on 05/21/2024. Gram stain from OSH shows no organisms and no culture growth to date. Patient transferred to [facility] on 05/23/2024 for further evaluation. Labs at transfer with CRP 1.4, ESR 114, WBC 8.9, Alk phos 170. Otherwise stable. Patient has right IJ HD permacath. She reports that it is open to air most of the time secondary toitching around the dressing. She has a chronic wound on her right heel which is not painful and has not worsened since she had an I&D in 04/2023 and completed IV antibiotics for osteomyelitis. Previous [facility] Hx: 04/26/2023 -05/09/2023: Presented for for foot [...] transitioned to PO linezolid to complete treatment. ID consulted for left shoulder septic bursitis osteomyelitis. Interval history: 05/24/2024: Ortho left shoulder aspiration: Synovial fluid 6k nucleated cells, 83% neutrophils, 610,000 RBC. Cultures in progress, no organisms on gram stain. 05/28/2024: MRI left shoulder consistent with subacromial subdeltoid septic bursitis. No osteomyelitis noted. Today: 05/28/2024: Patient reports she still has left shoulder pain particularly with movement of the shoulder. There is pain that radiates from the shoulder into the lateral left neck. She has no cervical spine pain. She reports that sometimes the dilaudid takes away her pain completely. She denies any other joint pain. She reports she still gets night sweats frequently but no fevers or chills otherwise. No nausea, vomiting, diarrhea. Denies any other joint or back pain. Tolerating antibiotics with noconcerns. Medical History Past Medical History: Diagnosis Date Essential (primary) hypertension Heart failure (HCC) Type 2 diabetes mellitus without complications (HCC) Surgical History Past Surgical History: Procedure Laterality Date LEG AMPUTATION ABOVE KNEE Left 12/05/2022 Left; AMPUTATION ABOVE LEFT KNEE Leg Amputation, Below Knee Left 12/02/2022 Left; LEFT ANKLE DISARTICULATION LEVEL 2 @ 2220 Social History Living situation: Permanent resident at [facility] HIV status: Negative 02/24/2024 Social History Socioeconomic History Marital status: Single Tobacco Use Smoking status: Former Types: Cigarettes Start date: 2010 Smokeless tobacco: Never Tobacco comments: Quit 4-5 months after starting Vaping Use Vaping Use: Never used Substance and Sexual Activity Alcohol use: Not Currently Comment: Occassionally Drug use: Not Currently Types: Marijuana Comment: At age 20 for 4-5 months Sexual activity: Not Currently Immunizations: Immunization History Administered Date(s) Administered DTP, [...] Review of Systems Review of Systems Constitutional: Negative. HENT: Negative. Eyes: Blindness Respiratory: Negative. Cardiovascular: Negative. Gastrointestinal: Negative. Genitourinary: Negative. Musculoskeletal: Bilateral shoulder pain, L>R. S/p Left AKA Right heel ulcer, chronic Skin: Itching with right HD IJ dressing Neurological: Negative. Endo/Heme/Allergies: Negative. Psychiatric/Behavioral: Negative. Allergies No Known Allergies Antimicrobial History Current Antibiotics IV vancomycin (05/24/2024 - present) IV cefepime (05/24/2024 - present) Prior Antibiotics At [facility] Prior Antibiotics at OSH PO Linezolid (Completed 04/2024) Home Medications Prior to Admission medications Medication Sig Start Date End Date Taking? Authorizing Provider acetaminophen (Tylenol) 500 MG tablet Take 1 (one) tablet by mouth every 4 hours Maximum allowable Acetaminophen amount = 4 Grams (4000 mg) / 24 hours. Patient not taking: Reported on 05/23/2024 03/02/24 Martine Morrissey MD Alcohol Swabs (Alcohol [...] for Constipation Patient not taking: Reported on 05/23/2024 02/28/24 Geronimo Burleson MD blood glucose (OneTouch Verio) test strip USE ONE STRIP TO TEST BLOOD SUGAR FOUR TIMES DAILY 12/12/22Amanda Georges MD Blood Glucose Monitoring Suppl (OneTouch Verio Reflect) w/Device KIT Use 1 kit 4 times daily USE METER TO CHECK BLOOD GLUCOSE FOUR TIMES DAILY Reasons: CALL [facility] WHEN DELIVERING X4364 12/12/22 Amanda Georges MD carvedilol (Coreg) 12.5 MG tablet Take 1 (one) tablet by mouth 2 times daily with morning and evening meal 12/12/22 Yes Rosi Menard APRN-LEEROY FeroSul 325 (65 Fe) MG tablet Take [...] nightly as needed for Insomnia 05/09/23 Yes oJe Vargas MD nystatin (Mycostatin) 350334 UNIT/GM powder Apply to affected area 3 times daily 12/12/22 Yes Rosi Menard APRN-LEEROY polyethylene glycol 3350 (Miralax) 17 g packet [...] with meals 02/28/24 Yes Geronimo Burleson MD Objective Vitals BP 142/86 Pulse 86 Temp 98.5 ??F (36.9 ??C) Resp 19 Ht 1.829 m (6') Wt 93.4 kg (205 lb 14.6 oz) SpO2 98% Temp (24hrs), Av.1 ??F (36.7 ??C), Min:97.6 ??F (36.4 ??C), Max:98.5 ??F (36.9 ??C) Physical Exam PHYSICAL EXAM General: Alert, no distress, not toxic appearing, Sitting up on the edge of the bed and appears comfortable. Head: Normocephalic, atraumatic EENT: Patient blind. Left eye with subconjunctival hemorrhage (chronic). Nose Normal. Lungs: Breathing comfortably and in no acute distress. Lungs CTA bilaterally. Extremities: Right shoulder normal. Left shoulder with pain to the lateral paraspinal musculature and top of the shoulder joint, no tenderness to anterior left shoulder joint. Still appears to have mild edema to left shoulder, no surrounding erythema. Right foot with ulcer present. Left AKA with nosigns of infection. Skin: No rashes. Neurologic: Alert and oriented x 3, moving all extremities Psychiatry: Appropriate mood/affect Lines: right HD IJ, dressing in placed. PIV left forearm Lab Review CBC: Recent Labs Component Name 05/28/24 0335 05/27/24 0659 05/26/24 0602 WBC 7.3 6.9 8.0 RBC 3.65* 3.63* 3.47* HGB 10.8* 10.8* 10.2* HCT 35.3 35.2 33.8* MCV 96.7 97.0 97.4 BMP: Recent Labs Component Name 05/28/24 0335 05/27/24 0659 05/26/24 0602 05/25/24 0643 05/24/24 0625 02/23/24 0737 02/22/24 2214 06/10/23 0939 NA 138 138 137 - 139 - 136 143 CL 101 105 104 - 104 - 100 110* CO2 30* 28 26 - - 26 25 BUN 26 31* 22 - 33* - 21 8 CREATININE 3.70* 4.15* 3.22* - 3.64* - 4.88* 1.96* ALB 2.1* 1.9* 2.0* - 1.9* - 1.5* 1.5* PROT - - - - 7.2 - 8.1 5.8* - = values in this interval not displayed. estimated creatinine clearance is 28.2 mL/min (A) (by C-G formula based on SCr of 3.7 mg/dL (H)). LFTs: Recent Labs Component Name 05/24/24 0625 02/22/244 06/10/23 0939 12/02/22 1955 08/25/22 0315 08/24/22 1404 08/24/22 0725 ALKPHOS 170* 221* 139 - - - - ALT 25 11 8 - - - - AST 14 7 12 - - - - ALBUMIN - - - - 2.0* 2.1* 1.7* - = values in this interval not displayed. Coagulation: Recent Labs Component Name 02/22/24221304/26/23 0629 PT 14.6 16.3* INR 1.2 1.3 PTT - 29.8 ESR: Recent Labs Component Name 05/24/24 0548 02/23/24 0737 06/10/23 0939 ESR 114* 116* 57* CRP: Recent Labs Component Name 05/24/24 0625 02/23/24 0737 06/10/23 0939 CRP 1.4* 8.3* <0.5 CK: No results for input(s): CK in the last 50993 hours. Microbiology, Imaging and other diagnostic tests MICROBIOLOGY: Blood culture: 05/20/2024: OSH No growth Aspiration Left shoulder OSH 05/21/2024: Gram stain (no organisms, many WBCs); Culture no growth Aspiration Left shoulder - [facility] 05/24/2024: - Culture: In process, no organisms on gram stain. - Synovial fluid Latest Reference Range & Units 05/24/24 15:05 Source Fluid Synovial Synovial Color Fluid RED Appearance Fluid BLOODY Total Nucleated Cells Fluid <=200 x10E6/L 6,498 (H) Neutrophils % Fluid % 83 Lymphocyte % Fluid % 9 Macrophage % Fluid % 8 Cells Counted Fluid x10E6/L 100 RBC Fluid Reference Range Not Established x10E6/L 610,000 (H): Data is abnormally high Other Serologies: HISTOPATHOLOGY: None at this admission IMAGING & PROCEDURES: Pertinent images independently reviewed; report in chart MRI left shoulder wwo contrast (05/28/2024): Impression: Distended distal subacromial subdeltoid bursa with [...] of the shoulder joint or acromioclavicular joint. XR Left shoulder (05/24/2024): IMPRESSION: Suggestion of a lucency projecting approximately [...] osteomyelitis nor evidence of fracture nor dislocation. Associated attestation - Chloe Carlson MD - 05/29/2024 10:[address] [facility] Infectious Diseases Attending Note Documentation Date/Time: 05/28/2024, 9:29 PM The patient was seen and evaluated with Roxanna Roth PA-C. I agree with the findings as described in the note, including the history, interval changes, ROS, examination, objective data interpretation, impression and plan as documented, though specifically I note the followin33 year old female with PMH of ESRD on hemodialysis TTS via R IJ Permcath (HD initiated 7 months ago per patient), HTN, HFpEF, T2DM, blindness, chronic right heel non healing wound with osteomyelitis, s/p left BKA, presenting on 05/23/2024 as an OSH transfer for management of osteomyelitis of left shoulder. Left shoulder subacromial-subdeltoid bursitis: infectious bursitis, vs inflammatory arthritides related (such as RA), vs metabolic disorder related (such as diabetes, etc.), vs osteoarthritis related: 05/28/2024 MRI Left Shoulder findings consistent with bursitis. Etiology still unclear. In terms of infectious related etiologies, could be from partially treated infection, or re-infection potentially from (1) chronic right heel non healing wound; (2) R IJ Permcath related infection. Non infection related concerning as well. Appreciate Rheumatology and Medicine team further input. 05/24/2024 aspiration of the left shoulder with Ortho, 50 mL of bloody and purulent fluid was aspirated (was on IV vancomycin and cefepime at OSH), fluid total nucleated cells only ~6500 (not typicalinfectious picture, but this was after several days of Abx); Gram stain no organisms seen, culturesno growth. Continue IV vancomycin and IV cefepime for now. Can continue empiric Abx for a duration up to ~4 weeks and monitor response to treatment. Follow further plan from orthopedic surgery. History of MRSA bacteremia (02/16/2024) c/b left axillary abscess s/p I&D and a short course ofPO antibiotics; left pectoralis major abscesses, and left shoulder septic arthritis and osteomyelitis: S/p abscess near left shoulder aspiration (11 mL pus) on 02/25/2024, Gram stain with no organisms and culture negative. Was treated with IV vancomycin ->PO linezolid, 6 weeks total through 04/06/2024. Image (CT or MRI) was not obtained at the end of 6 weeks of antibiotics to confirm resolution of the abscesses. Chronic right heel non healing wound with chronic osteomyelitis: Obtain NORMA right lower extremity. T2DM c/b blindness. ESRD on hemodialysis TTS via R IJ Permcath. Discussed the importance to keep the dressing in place at the exit site to keep it dry and clean. Thank you for allowing us to participate in the care of this patient. Please see the note by Roxanna Roth PA-C for further details. Chloe Carlson MD Infectious Diseases Attending * Eli Colindres - 05/28/2024 1:20 PM CDT [facility] Nephrology Progress Note Date of Service: 05/26/2024 INTERVAL HISTORY: Today, pt doing well, no new concerns. Euvolemic. L shoulder MRI showing most likely infected bursitis. Hospital Medications: 0.9% NaCl 3 mL Intracatheter q8h amLODIPine 10 mg Oral QDAY carvedilol 12.5 mg Oral BID WC cefepime 2 g Intravenous TUES, THUR & SAT furosemide 40 mg Oral MON, WED AND FRI gabapentin 100 mg Oral TID gadoterate meglumine Intravenous Contrast - Once heparin 5,000 Units Subcutaneous BID insulin aspart 0-12 Units Subcutaneous TID insulin glargine 8 Units Subcutaneous QDAY lisinopril 20 mg Oral QDAY renal vitamin 1 tablet Oral QDAY sennosides 8.6 mg Oral QDAY sevelamer carbonate 800 mg Oral TID WC vancomycin (VANCOCIN) IV dose per pharmacy Does not apply DIRECTED Physical Exam: Vitals: 05/27/24200405/28/24 0353 05/28/24 0901 05/28/24 1102 BP: 121/75 126/75 142/86 Pulse: 80 77 86 Resp: 20 19 Temp: 97.8 ??F (36.6 ??C) 98.3 ??F (36.8 ??C) 98.5 ??F (36.9 ??C) SpO2: 91% 94% 98% Weight: Height: Intake/Output Summary (Last 24 hours) at 05/28/2024 1322 Last data filed at 05/28/2024 1245 Gross per 24 hour Intake 440 ml Output 0 ml Net 440 ml Genera Appearance: NAD Neck:Supple Cardiovascular: Well perfused Respiratory: Normal WOB Abdomen: ND Extremities: No LE edema Dialysis access: RIJ permacath c/d/i LABS: Recent Labs Component Name 05/28/24 0335 05/27/24 0659 05/26/24 0602 NA 138 138 137 POTASSIUM 4.7* 4.7* 4.4 CL 101 105 104 CO2 30* 28 26 BUN 26 31* 22 CREATININE 3.70* 4.15* 3.22* Recent Labs Component Name 05/28/24 0335 05/27/24 0659 05/26/24 0602 CALCIUM 8.7 8.3* 8.5 PHOS 5.2* 5.6* 4.8 Recent Labs Component Name 02/25/24 0110 PTHINTACT 93.0* Recent Labs Component Name 05/28/24 0335 05/27/24 0659 05/26/24 0602 WBC 7.3 6.9 8.0 HGB 10.8* 10.8* 10.2* Recent Labs Component Name 02/25/24 0110 IRON 23* TIBC 149* FERRITIN 833* ASSESSMENT ESRD on maintenance dialysis: Chronic kidney disease-mineral and bone disorder (CKD-MBD): Anemia of chronic kidney disease on dialysis: Hypertension: RECOMMENDATIONS Will continue maintenance HD TTS Please refer to the initial nephrology consult note for additional information. Eli Colindres, MS4 Associated attestation - Tao Stein MD - 05/28/2024 4:30 PM CDT I have verified the documentation of the Medical student, including all history, exam, and medical decision-making details. I have personally performed a physical exam and have personally reviewed the data to support my medical decision-making as outlined in the student's note, and I arrive independently at the same conclusion. Date of Service: 05/28/2024 Tao Stein MD * Jasmyne Coleman, RD/LDN - 05/28/2024 12:37 PM CDT Images from the original note were not included. Clinical Nutrition Assessment Brief Synopsis: Patient is at Nutrition Risk; Specific criteria can be found in assessment below Nutrition Plan: Current diet order: Consistent Carb Standard +Renal diet parameters Continue Nathaniel BID (7gm arginine, 7gm glutamine, 2.5g collagen protein, 300mg VIT C, 9.5mg zinc) Recommendations to Physician: Consider bowel reg adjustment (no BM since 05/25) Comments: Pt scheduled for reassessment. PO intake has been 100% x last 48hr per documentation. Appears adequate. RD to continue supplement to support nutrition needs for wound healing. Labs reviewed, renal function consistent with ESRD, K 4.7, Phos 5.2. RD to add renal parameters to diet order fornutrition approach to >K/Phos management. Last BM 05/24. Recommend to consider miralax as daily vs PRN. Also note that pt refused senna per JAN, so irregular BM could be med non compliance. Net -2.5L. RD to continue to follow per protocol. Assessment: Med/Surg History and Clinical Diagnoses: 33-year-old female with a PMH of blindness, T2DM, HTN, chronic HFpEF, chronic right heel ulcer/osteomyelitis(tx only with IV abx) , prior left BKA, ESRD on HD(//Fri) and possible sickle cell disease who was transferred from an outside hospital for left shoulder septic bursitis/osteomyelitis Height: 182.9 cm (6') Weight: 93.4 kg (205 lb 14.6 oz) BMI: Body mass index is 27.93 kg/m??. BMI Range: Overweight IBW/lb (Calculated) Female: 160, Recent Weights/Methods 05/19/2023 0400 05/19/2023 1300 05/21/2023 0837 06/10/2023 0845 02/26/2024 1501 05/23/2024 2202 05/24/2024 0501 05/24/2024 1400 Weight: 139.3 kg (307 lb) 139.3 kg (307 lb 1.6 oz) 139.3 kg (307 lb) 129.7 kg (286 lb) 98.9 kg (218lb) 93.4 kg (206 lb) -- 93.4 kg (205 lb 14.6 oz) Weight Method : Bedscale -- -- -- -- Stated Other (Comment) -- Wt Comments: Reviewed. 100 lb weight loss x1yr, however uncertain when L BKA was. Likely contributing factor along with fluid changes from HD. Will continue to monitor. Diet order accuracy Current diet order: Consistent Carb Standard Current supplement order: Nathaniel BID Nutrition recommendation: alter/change nutrition order P.O.Intake for the past 48 hrs: % Meal Taken Av % Min: 100 % Max: 100 % Supplement(s) Consumed- Last 48 hours None Food Allergies: No known food allergies GI Concerns: None Chewing/Swallowing: None Pain affecting intake: No Estimated Needs: KCAL: 1511-2343 (30-33kcal/kg) Protein (g): 103 (1.5g/kg) Fluid (ml): Other (comments) (UO + 500-1000mL) Needs based on: Kcal/kg- (Comment) (actual adjusted BW 69kg) Recommended Access Route: PO Laboratory values: Recent Labs Component Name 05/28/24 0335 05/27/24 0659 05/26/24 0602 05/25/24 0643 05/24/24 0625 02/23/24 0737 02/22/24 2214 06/10/23 0939 BUN 26 31* 22 - 33* - 21 8 CREATININE 3.70* 4.15* 3.22* - 3.64* - 4.88* 1.96* NA 138 138 137 - 139 - 136 143 POTASSIUM 4.7* 4.7* 4.4 - 4.2 - 4.1 4.1 CL 101 105 104 - 104 - 100 110* CO2 30* 28 26 - - 26 25 GLUCOSE 152* 119* 104 - 240* - 261* 79 CALCIUM 8.7 8.3* 8.5 - 8.5 - 8.8 8.3* PROT - - - - 7.2 - 8.1 5.8* ALB 2.1* 1.9* 2.0* - 1.9* - 1.5* 1.5* TBILI - - - - 0.1* - 0.2 0.2 ALKPHOS - - - - 170* - 221* 139 ALT - - - - 25 - 11 8 AST - - - - 14 - 7 12 ANIONGAP 7 5* 7 - 9 - 10 12 BCR 7 7 7 - 9 - 4* 4* OSMOLALITY 294 294 288 - 303* - 294 293 AGRATIO - - - - 0.4* - 0.2* 0.3* EGFR 16* 14* 19* - 16* - 12* 35* - = values in this interval not displayed. Medications: Current Facility-Administered Medications Medication 0.9% NaCl injection 3 mL And 0.9% NaCl injection 1-10 mL acetaminophen (Tylenol) tablet 650 mg amLODIPine (Norvasc) tablet 10 mg carvedilol (Coreg) tablet 12.5 mg cefepime (Maxipime) 2,000 mg in 0.9% NaCl IV 50 mL IVPB dextrose 10 % IV bolus Or dextrose 10 % IV bolus Or glucagon (Glucagen) injection 1 mg furosemide (Lasix) tablet 40 mg gabapentin (Neurontin) capsule 100 mg gadoterate meglumine (Dotarem/Clariscan) injection glucose (Diabetic Use) oral gel heparin injection 4,100 Units heparin injection 5,000 Units HYDROmorphone (Dilaudid) injection 0.5 mg insulin aspart (NovoLOG) pen 0-12 Units insulin glargine (Lantus) pen 8 Units lisinopril (Prinivil; Zestril) tablet 20 mg ondansetron (disintegrating) (Zofran ODT) tablet 4 mg Or ondansetron (Zofran) injection 4 mg oxyCODONE (immediate release) (Roxicodone) tablet 5 mg Or oxyCODONE (immediate release) (Roxicodone) tablet 10 mg polyethylene glycol 3350 (Miralax) packet 17 g renal vitamin (Dialyvite) tablet 1 tablet senna (Senokot) tablet 8.6 mg sevelamer carbonate (Renvela) tablet 800 mg vancomycin (Vancocin) IV dose per pharmacy Skin/Wound: L BKA, R heel ulcer Education needed: Wound Healing Education Provided: Prior to Discharge Nutrition Care Process (1) Nutrition Diagnostic Statement: Increased nutrient needs related to:: increased demands for wound healing as evidenced by:: estimated energy needs ..;estimated protein needs ..;delayed wound healing Nutrition Diagnostic Statement Progress: Nutrition problem continues Nutrition Intervention: Meals and snacks:;Medical Food Supplements: Monitoring: GI, PO intake, Wt, labs, medications Evaluation: Nutrition Goal: Total intake will meet estimated nutrient needs Nutrition Goal Timeframe: Throughout stay Nutrition Goal Progress: Continue with current goal Ascom [id number] * Kishan Faria - 05/28/2024 11:03 AM CDT [facility] INTERNAL MEDICINE PROGRESS NOTE Patient: Gay Canales Sex: female Age: [age] year old Date of : 1990 Date of Admission: 05/23/2024 Date: 05/28/2024 LOS: 5 SUBJECTIVE Interval History: Pt seen at bedside resting comfortably. She had MRI this morning. No acute concerns or changes in symptoms. Hospital Course: Ms. Gay Canales is a 33 year old female with PMH of T2DM c/b neuropathy and retinopathy (pt is blind), HTN, HFpEF, chronic R heel ulcer/osteomyelitis, L BKA, ESRD on HD TTS, and possible sickle cell disease who presented to [facility] ED from OSH with concern for L shoulder septic arthritis and osteomyelitis. At OSH, pt had blood cultures drawn and orthopedic surgery aspirated purulent fluid from L shoulder. She was started on vancomycin and cefepime and transferred to [facility] for further evaluation.ID and orthopedic surgery consulted on arrival. Ortho aspirated fluid from L shoulder which showed ~6K nucleated cells. ID recommended continuing vancomycin and cefepime. Rheumatology was consulted for workup of inflammatory arthritis, and heme/onc was consulted for further workup of sickle cell disease vs trait. OBJECTIVE Vital Signs: Vitals: 05/27/24200405/28/24 0353 05/28/24 0901 05/28/24 1102 BP: 121/75 126/75 142/86 Pulse: 80 77 86 Resp: 20 19 Temp: 97.8 ??F (36.6 ??C) 98.3 ??F (36.8 ??C) 98.5 ??F (36.9 ??C) SpO2: 91% 94% 98% Weight: Height: Temp Min: 97.6 ??F (36.4 ??C) Max: 99.1 ??F (37.3 ??C), Pulse Min: 76 Max: 95, Resp Min: 14 Max: 20, BP Min: 106/67 Max: 171/95 Intake & Output: In: 600 [P.O.:600] Out: 2600 Physical Exam: Physical Exam Gen: NAD, normal appearance HEENT: AT/NC, EOMI, mucous membranes moist CV: RRR, no m/r/g Pulm: Nonlabored respirations, CTA Abd: Soft, NT/ND MSK: L BKA, R heel with wound dressing intact, pain in L shoulder Neuro: no focal deficits Psych: Appropriate mood and affect Current Medications: Scheduled: 0.9% NaCl 3 mL Intracatheter q8h amLODIPine 10 mg Oral QDAY carvedilol 12.5 mg Oral BID WC cefepime 2 g Intravenous TUES, THUR & SAT furosemide 40 mg Oral MON, WED AND FRI gabapentin 100 mg Oral TID gadoterate meglumine Intravenous Contrast - Once heparin 5,000 Units Subcutaneous BID insulin aspart 0-12 Units Subcutaneous TID insulin glargine 8 Units Subcutaneous QDAY lisinopril 20 mg Oral QDAY renal vitamin 1 tablet Oral QDAY sennosides 8.6 mg Oral QDAY sevelamer carbonate 800 mg Oral TID WC vancomycin (VANCOCIN) IV dose per pharmacy Does not apply DIRECTED Continuous: PRN: SALINE LOCK, INSERT AND MAINTAIN AND 0.9% NaCl AND 0.9% NaCl acetaminophen dextrose IV for hypoglycemia OR dextrose IV for hypoglycemia OR glucagon glucose (Diabetic Use) gel heparin HYDROmorphone ondansetron (disintegrating) OR ondansetron oxyCODONE (immediate release) OR oxyCODONE (immediate release) polyethylene glycol 3350 Significant Lab Results: Results for orders placed or performed during the hospital encounter of 05/23/24 (from the past 24 hour(s)) GLUCOSE - POINT OF CARE Result Value Ref Range Glucose WB/POC 164 (H) 70 - 115 mg/dL Specimen Type Cap Fingerstick GLUCOSE - POINT OF CARE Result Value Ref Range Glucose WB/POC 220 (H) 70 - 115 mg/dL Specimen Type Arterial GLUCOSE - POINT OF CARE Result Value Ref Range Glucose WB/POC 180 (H) 70 - 115 mg/dL Specimen Type Cap Fingerstick RENAL FUNCTION PANEL Result Value Ref Range BUN 26 7 - 26 mg/dL Creatinine 3.70 (H) 0.56 - 0.96 mg/dL Sodium 138 136 - 145 mmol/L Potassium 4.7 (H) 3.5 - 4.5 mmol/L Chloride 101 98 - 107 mmol/L CO2 30 (H) 22 - 29 mmol/L Glucose 152 (H) 70 - 115 mg/dL Albumin 2.1 (L) 3.4 - 5.0 g/dL Calcium 8.7 8.4 - 10.2 mg/dL Phosphorus 5.2 (H) 2.9 - 5.1 mg/dL Anion Gap 7 6 - 16 BUN/Creatinine Ratio 7 7 - 23 Osmolality Calculated 294 275 - 295 mOsm/kg eGFR by CKD-EPI 16 (L) >=90 mL/min/1.73 m2 CBC W AUTO DIFFERENTIAL Result Value Ref Range WBC 7.3 4.0 - 10.7 x10E9/L RBC Count 3.65 (L) 3.90 - 5.20 x10E12/L Hemoglobin 10.8 (L) 11.9 - 15.8 g/dL Hematocrit 35.3 34.8 - 46.1 % MCV 96.7 80.0 - 98.0 fL MCH 29.6 26.7 - 33.6 pg MCHC 30.6 (L) 31.7 - 36.3 g/dL RDW-CV 15.6 (H) 11.3 - 14.8 % Platelet Count 330 150 - 420 x10E9/L MPV 10.0 7.8 - 11.4 fL Neutrophil % 57.3 41.0 - 74.0 % Lymphocyte % 24.8 17.0 - 47.0 % Monocyte % 9.5 3.0 - 11.0 % Eosinophil % 7.7 (H) 0.0 - 7.0 % Basophil % 0.4 0.0 - 1.6 % Immature Granulocytes % 0.3 0.0 - 1.0 % Neutrophil Absolute 4.19 1.60 - 7.50 x10E9/L Lymphocyte Absolute 1.81 1.00 - 4.40 x10E9/L Monocyte Absolute 0.69 0.15 - 1.00 x10E9/L Eosinophil Absolute 0.56 0.00 - 0.60 x10E9/L Basophil Absolute 0.03 0.00 - 0.13 x10E9/L GLUCOSE - POINT OF CARE Result Value Ref Range Glucose WB/POC 157 (H) 70 - 115 mg/dL Specimen Type Cap Fingerstick Microbiology: Recent Results (from the past 1008 hour(s)) CULTURE FLUID+GRAM STAIN Collection Time: 05/24/24 3:06 PM Specimen: Synovial Fluid Result Value Ref Range Culture No growth Gram Stain Light Polymorphonuclear cells Gram Stain Light Red blood cells Gram Stain No organisms seen CULTURE ANAEROBE Collection Time: 05/24/24 3:06 PM Specimen: Synovial Fluid; Microbiology Result Value Ref Range Culture No anaerobic organisms isolated to date. Imaging & Studies: XR SHOULDER LEFT 2VW OR MORE Result Date: 05/24/2024 IMPRESSION: Suggestion of a lucency projecting approximately 2.1 cm in length in relationship to the undersurface of the acromion process. This has relatively well-defined margins and is not clearly defined on the prior study. This has a somewhat cystic appearance. There is no definite associated bony destructive process. If greater anatomic detail is desired, suggest MRI of the left shoulder. Nodefinite radiographic manifestations of osteomyelitis nor evidence of fracture nor dislocation. > Interpreting Provider: Jed Dale MD on 05/24/2024 2:22 PM ASSESSMENT & PLAN Osteomyelitis of left shoulder, unspecified type (HCC) (POA: Yes) ESRD (end stage renal disease) (HCC) (POA: Yes) Type 2 diabetes mellitus with diabetic polyneuropathy (HCC) (POA: Yes) Gay Canales is a 33YOF with PMH of T2DM c/b neuropathy and retinopathy (pt is blind), HTN, HFpEF, chronic R heel ulcer/osteomyelitis, L BKA, ESRD on HD TTS, and possible sickle cell disease who presented from OSH with concern for L shoulder septic arthritis and osteomyelitis. #L shoulder pain -Possible 2/2 septic arthritis, osteomyelitis, osteonecrosis, inflammatory arthritis -ID consulted and appreciate recommendations. L shoulder aspirate shows NGTD. Will continue vancomycin and cefepime for now. Will follow up with ID regarding duration of abx -Nephrology recommended renal dosing for cefepime to 2g after HD -Ortho consulted and following. No acute surgical interventions at this time -Rheumatology consulted and believes cause is infectious so signing off -Will review L shoulder MRI from this morning, awaiting read -Continue pain management with acetaminophen q6h prn, tiered oxy 5-10 mg q6h prn, and dilaudid breakthrough #Sickle cell disease vs trait -Heme/onc consulted and appreciate recommendations -Hemoglobin electrophoresis shows normal pattern on preliminary read, heme will follow up accordingly Chronic Problems: #Chronic R heel ulcer -Pt has chronic R heel ulcer which was treated with IV abx in 04/25. Declined amputation at the time -Wound care following -NORMA to determine LE vasculature #T2DM, c/b neuropathy and retinopathy -Continue insulin glargine 8u -SSI mealtime and accuchecks -gabapentin 100mg TID for neuropathy #ESRD -Nephrology consulted and following -HD TTS -Continue sevelamer #HTN #HFpEF -Continue carvedilol, lasix, lisinopril, amlodipine -Daily weights #JIAN -Holding iron supplements in the setting of infection -Transfuse if Hgb < 7 Code: Full Code Diet: DIETARY NUTRITION SUPPLEMENTS ONCE DIET CONSISTENT CARB Electrolytes: Replete PRN PPx: Heparin Access: PIV Consults: IP CONSULT TO NUTRITIONAL SERV IP CONSULT TO INFECTIOUS DISEASES IP CONSULT TO NEPHROLOGY IP CONSULT TO AUDIOVISUAL LIBRARIAN IP CONSULT TO WOUND NURSE IP CONSULT TO HEMATOLOGY IP CONSULT TO RHEUMATOLOGY Dispo: Medicine floor The above assessment and plan will be discussed with the attending. This note is not final until attested by attending physician. [facility] Medical Student, MS3 [facility] 05/28/2024 11:23 AM * Cuca Torres RN - 05/28/2024 10:34 AM CDT Problem: Pain/Discomfort Goal: Patient exhibits [...] in the flowsheet documentation) Outcome: Progressing Problem: Tissue injury due to various disease processes Goal: Provide optimal wound healing environment Outcome: Progressing Problem: Tissue Injury due to Inadequate Arterial Perfusion Goal: Maintain Clean/Stable wound environment Outcome: Progressing Problem: Tissue Injury due to Venous Hypertension Goal: Maintain Infection Free Stable Wound Environment Outcome: Progressing Problem: Tissue Injury Due to Loss of Protective Sensation Goal: Protect Injured Tissue and Prevent Further Injury Outcome: Progressing Problem: Tissue Injury Due to External Forces of Pressure, Friction, and Shear Goal: Protect Skin from External Forces Outcome: Progressing Goal: Maintain and Improve Tissue Tolerance to Pressure Outcome: Progressing Problem: Nutrient: Increased nutrient needs (specify) Goal: Total intake will meet estimated nutrient needs Outcome: Progressing Problem: Skin Integrity Goal: Skin integrity is maintained or improved Outcome: Progressing Problem: Hemodynamic Status/Cardiac Output Goal: Patient has stable vital signs and fluid balance Outcome: Progressing Problem: Fluid and Electrolyte Imbalance Goal: Fluid and electrolyte balance are achieved/maintained Outcome: Progressing Problem: Infection Goal: Signs and symptoms of infections are decreased or avoided Outcome: Progressing Problem: Transfers Goal: STG - Patient will transfer sit to and from stand Outcome: Progressing Problem: Balance Goal: LTG - Patient will demonstrate Intervention to enhance balance for safe completion of daily activities Outcome: Progressing * Kg Brown - 05/28/2024 10:25 AM CDT Senior Design Engineering Specialist made initial visit to patient, and provided reflective listening as patient shared about her experience in the hospital. Patient expressed a desire to get answers to her medical questions, and mentioned that she lives in [place], near her mother and sisters. Patient is aware pastoral care is available as needed. Senior Design Engineering Specialist Employment Educational Coord Kg Brown ASCOM: [id number] On-Call Senior Design Engineering Specialist ASC[facility] [phone] * Tao Frances DO - 05/27/2024 3:56 PM CDT [facility] INTERNAL MEDICINE PROGRESS NOTE Patient: Gay Canales Sex: female Age: [age] year old Date of : 1990 Date of Admission: 05/23/2024 Date: 05/27/2024 LOS: 4 SUBJECTIVE Interval History: No acute events overnight. Patient endorses L shoulder bony pain . Seen in dialysis this morning. Hospital Course: Per chart review with edits: Patient is a 33F with PMHx of T2DM, HTN, HFpEF, chronic right heel ulcer/osteomyelitis, prior L BKA, ESRD on HD TTS, possible sickle cell disease who presents from OSH with concerns of L shoulder septic arthritis. At OSH orthopedic surgery aspirated purulent fluid from her L shoulder. She was transferred to [facility] from further evaluation of her L shoulder. ID and orthopedic surgery was consulted on arrival. She was started on IC vanc and cefepime. Rheumatology and hematology were consulted for inflammatory arthropathy and sickle cell disease respectively. OBJECTIVE Vital Signs: Vitals: 05/27/24 1120 05/27/24 1140 05/27/24 1145 05/27/24 1149 BP: 127/84 122/77 124/85 116/76 Pulse: 88 89 89 88 Resp: 14 16 18 14 Temp: 98.2 ??F (36.8 ??C) SpO2: 96% Weight: Height: Temp Min: 97.6 ??F (36.4 ??C) Max: 99.1 ??F (37.3 ??C), Pulse Min: 76 Max: 95, Resp Min: 14 Max: 20, BP Min: 116/76 Max: 171/95 Intake & Output: In: 200 [P.O.:200] Out: - Physical Exam: Physical Exam HENT: Head: Normocephalic and atraumatic. Eyes: General: No scleral icterus. Cardiovascular: Rate and Rhythm: Normal rate and regular rhythm. Heart sounds: No murmur heard. No friction rub. No gallop. Pulmonary: Breath sounds: No wheezing, rhonchi or rales. Abdominal: Tenderness: There is no abdominal tenderness. Musculoskeletal: Right lower leg: No edema. Left lower leg: No edema. Comments: Painful L shoulder ROM Neurological: General: No focal deficit present. Mental Status: She is oriented to person, place, and time. Current Medications: Scheduled: 0.9% NaCl 3 mL Intracatheter q8h amLODIPine 10 mg Oral QDAY carvedilol 12.5 mg Oral BID WC cefepime 2 g Intravenous , & SAT furosemide 40 mg Oral MON, WED AND FRI gabapentin 100 mg Oral TID heparin 5,000 Units Subcutaneous BID insulin aspart 0-12 Units Subcutaneous TID WC insulin glargine 8 Units Subcutaneous QDAY lisinopril 20 mg Oral QDAY renal vitamin 1 tablet Oral QDAY sennosides 8.6 mg Oral QDAY sevelamer carbonate 800 mg Oral TID WC vancomycin 1,000 mg Intravenous Once vancomycin (VANCOCIN) IV dose per pharmacy Does not apply DIRECTED Continuous: PRN: SALINE LOCK, INSERT AND MAINTAIN AND 0.9% NaCl AND 0.9% NaCl acetaminophen dextrose IV for hypoglycemia OR dextrose IV for hypoglycemia OR glucagon glucose (Diabetic Use) gel heparin HYDROmorphone ondansetron (disintegrating) OR ondansetron oxyCODONE (immediate release) OR oxyCODONE (immediate release) polyethylene glycol 3350 Significant Lab Results: reviewed Microbiology: reviewed Imaging & Studies: reviewed ASSESSMENT & PLAN Osteomyelitis of left shoulder, unspecified type (HCC) (POA: Yes) ESRD (end stage renal disease) (HCC) (POA: Yes) Type 2 diabetes mellitus with diabetic polyneuropathy (HCC) (POA: Yes) #L shoulder pain - possible 2/2 septic arthritis, inflammatory arthritis, osteomyelitis, osteonecrosis - ID and ortho consulted on arrival - on IV cefepime and vanc; cefe dosed per nephrology note (2g after HD) - no acute surgical intervention - rheumatology consulted, likely not rheumatologic process, signed off - pain management tylenol q6h prn, tiered oxy 5-10 mg q6h prn and dilaudid breakthrough - L shoulder MRI w ordered, scheduled for tomorrow - continue to monitor #sickle cell disease vs trait - unclear diagnosis, noted in chart review - hematology consulted for further workup, appreciate recs - awaiting Hgb electrophoresis results #T2DM #diabetic neuropathy - diabetic diet - lantus increased to 8u - accuchecks and SSI AC - gabapentin 100 mg TID #chronic R heel ulcer - hx IV abx in 2022 - wound care following, recs in their note - NORMA ordered for investigation of LE vasculature #ESRD on HD - nephrology following - continue sevelemer #HFpEF #HTN - daily weights - continue carvedilol, lasix, lisinopril, and amlodipine #JIAN - hold all iron supplementation due to concerns of active infection - CTM and transfuse if Hgb < 7 Code: FULL Diet: diabetic Electrolytes: Replete PRN PPx: heparin Access: PIV Dispo: pending further workup, likely return to facility The above assessment and plan will be discussed with the attending. This note is not final until attested by attending physician. Tao Frances DO Internal Medicine Resident [facility] 05/27/2024 3:56 PM Associated attestation - Hunter Chin III, MD - 05/28/2024 8:23 AM CDT I have chart reviewed, seen, and examined the patient. Together the resident and I formulated a therapeutic plan for this patient based on their subjective and objective findings, including any new lab and image findings. I agree with the assessment and plan as documented unless specifically mentioned below. Date of Service: Date of Resident's note Hunter Chin MD [facility], Hospital Medicine [facility] [employer] 05/28/24 8:23 AM * Zach Martin MSW - 05/27/2024 3:38 PM CDT Images from the original note were not included. DC Plan: Anticipated Discharge Date: 05/29/24 Prior to admission level of care: Half-Way - Skilled Facility Prior to admit provider: Danyelle Hendrix [facility] Anticipated level of care at discharge: Half-Way - Skilled Facility Anticipated level of care provider: Danyelle Hendrix [facility] ([facility] Discharge Plan: RETURN TO PREVIOUS FACILITY COMBINATION SAW OPERATOR met with patient at bedside. Patient reported previous facility as [facility] ([address] [place] [id number]). Patient anticipates returning at discharge VERONIKA Bailey 05/27/2024 3:40 PM Orientation Level: Oriented X4: Family Support (Name and Phone): Extended Emergency Contact Information Primary Emergency Contact: Silvia Resendiz Mobile Relation: Mother Foot Orthopedist needed? No Secondary Emergency Contact: GAYE BEAL Mobile Relation: Sister Foot Orthopedist needed? No Transportation at Discharge: COMBINATION SAW OPERATOR to assist with arranging transportation READMISSION RISK SCORE is 18 at 3:38 PM 05/27/2024.: Name: VERONIKA Bailey, COMBINATION SAW OPERATOR Continued Care and Services - Admitted Since 05/23/2024 Dialysis/Infusion Coordination complete. Service Provider Request Status Selected Services Address Phone Fax Patient Preferred [facility] Selected Dialysis [address], [facility] [id number] -- Selected Continued Care - Prior Encounters Includes continued care and service providers with selected services from prior encounters from 02/23/2024 to 05/27/2024 Discharged on 03/02/2024 Admission date: 02/22/2024 - Discharge disposition: Nursing Facility:Medicaid Dialysis/Infusion Service Provider Selected Services Address Phone Fax Patient Preferred [facility] [address], [facility] [id number] [phone] -- * Anahi Davis RN - 05/27/2024 2:59 PM CDT Problem: Pain/Discomfort Goal: Patient exhibits [...] in the flowsheet documentation) Outcome: Progressing Problem: Tissue injury due to various disease processes Goal: Provide optimal wound healing environment Outcome: Progressing Problem: Tissue Injury due to Inadequate Arterial Perfusion Goal: Maintain Clean/Stable wound environment Outcome: Progressing Problem: Tissue Injury due to Venous Hypertension Goal: Maintain Infection Free Stable Wound Environment Outcome: Progressing Problem: Tissue Injury Due to Loss of Protective Sensation Goal: Protect Injured Tissue and Prevent Further Injury Outcome: Progressing Problem: Tissue Injury Due to External Forces of Pressure, Friction, and Shear Goal: Protect Skin from External Forces Outcome: Progressing Goal: Maintain and Improve Tissue Tolerance to Pressure Outcome: Progressing Problem: Nutrient: Increased nutrient needs (specify) Goal: Total intake will meet estimated nutrient needs Outcome: Progressing Problem: Skin Integrity Goal: Skin integrity is maintained or improved Outcome: Progressing Problem: Hemodynamic Status/Cardiac Output Goal: Patient has stable vital signs and fluid balance Outcome: Progressing Problem: Fluid and Electrolyte Imbalance Goal: Fluid and electrolyte balance are achieved/maintained Outcome: Progressing Problem: Infection Goal: Signs and symptoms of infections are decreased or avoided Outcome: Progressing Problem: Transfers Goal: STG - Patient will transfer sit to and from stand Outcome: Progressing Problem: Balance Goal: LTG - Patient will demonstrate Intervention to enhance balance for safe completion of daily activities Outcome: Progressing * Eli Colindres - 05/27/2024 12:39 PM CDT [facility] Nephrology Progress Note Date of Service: 05/26/2024 INTERVAL HISTORY: Seen in dialysis today, tolerated well but had some nausea toward the end of treatment. 2.6L UF. Today, pt doing well. Some L shoulder pain but well controlled with medication. Euvolemic. Still pending L shoulder MRI. Hospital Medications: 0.9% NaCl 3 mL Intracatheter q8h amLODIPine 10 mg Oral QDAY carvedilol 12.5 mg Oral BID WC cefepime 2 g Intravenous TU, THUR & SAT furosemide 40 mg Oral FRI, FRI AND FRI gabapentin 100 mg Oral TID heparin 5,000 Units Subcutaneous BID insulin aspart 0-12 Units Subcutaneous TID WC insulin glargine 8 Units Subcutaneous QDAY lisinopril 20 mg Oral QDAY renal vitamin 1 tablet Oral QDAY sennosides 8.6 mg Oral QDAY sevelamer carbonate 800 mg Oral TID WC vancomycin 1,000 mg Intravenous Once vancomycin (VANCOCIN) IV dose per pharmacy Does not apply DIRECTED Physical Exam: Vitals: 05/27/24 1120 05/27/24 1140 05/27/24 1145 05/27/24 1149 BP: 127/84 122/77 124/85 116/76 Pulse: 88 89 89 88 Resp: 14 16 18 14 Temp: 98.2 ??F (36.8 ??C) SpO2: 96% Weight: Height: Intake/Output Summary (Last 24 hours) at 05/27/2024 1239 Last data filed at 05/27/2024 1149 Gross per 24 hour Intake 200 ml Output 2600 ml Net -2400 ml Genera Appearance: NAD Neck:Supple Cardiovascular: Well perfused Respiratory: Normal WOB Abdomen: ND Extremities: No LE edema Dialysis access: RIJ permacath c/d/i LABS: Recent Labs Component Name 05/27/24 0659 05/26/24 0602 05/25/24 0643 NA 138 137 139 POTASSIUM 4.7* 4.4 5.1* CL 105 104 106 CO2 28 26 19* BUN 31* 22 39* CREATININE 4.15* 3.22* 4.06* Recent Labs Component Name 05/27/24 0659 05/26/24 0602 05/25/24 0643 CALCIUM 8.3* 8.5 8.6 PHOS 5.6* 4.8 4.7 Recent Labs Component Name 02/25/24 0110 PTHINTACT 93.0* Recent Labs Component Name 05/27/24 0659 05/26/24 0602 05/25/24 0643 WBC 6.9 8.0 8.6 HGB 10.8* 10.2* 9.9* Recent Labs Component Name 02/25/24 0110 IRON 23* TIBC 149* FERRITIN 833* ASSESSMENT ESRD on maintenance dialysis: Chronic kidney disease-mineral and bone disorder (CKD-MBD): Anemia of chronic kidney disease on dialysis: Hypertension: RECOMMENDATIONS Will continue maintenance HD TTS Please refer to the initial nephrology consult note for additional information. Eli Colindres, MS4 * Lorena Choudhary LPN - 05/27/2024 12:05 PM CDT 05/27/24 1149 Post Hemodialysis Patient Response to Treatment hd tx ended 12min early d/t patient feeling nausea and maricel line clotted Post Dialysis Patient Status Treatment Completed Ultrafiltration Amount (ml) 2600 Dialyzer Clearance Heavily streaked Amount of blood processed (Liters) 57.7 Post Hemodialysis Comment 2.6L removed, VSS TX Charge entered in Charge Capture Yes * Mary Winn PT - 05/27/2024 11:06 AM CDT [facility] Department of Physical Medicine & Rehabilitation Patient: Gay Canales Med Record Number: [id number] Date of : 1990 Age: [age] year old 05/27/24 1106 Missed Visit Missed Visit Procedure Off Floor Patient off the floor Dialysis * Kishan Faria - 05/27/2024 11:03 AM CDT [facility] INTERNAL MEDICINE PROGRESS NOTE Patient: Gay Canales Sex: female Age: [age] year old Date of : 1990 Date of Admission: 05/23/2024 Date: 05/27/2024 LOS: 4 SUBJECTIVE Interval History: Pt seen in dialysis this morning. She reports pain in her L shoulder similar to previous. Denies chest pain and SOB. Hospital Course: Ms. Gay Canales is a 33 year old female with PMH of T2DM c/b neuropathy and retinopathy (pt is blind), HTN, HFpEF, chronic R heel ulcer/osteomyelitis, L BKA, ESRD on HD TTS, and possible sickle cell disease who presented to [facility] ED from OSH with concern for L shoulder septic arthritis and osteomyelitis. At OSH, pt had blood cultures drawn and orthopedic surgery aspirated purulent fluid from L shoulder. She was started on vancomycin and cefepime and transferred to [facility] for further evaluation.ID and orthopedic surgery consulted on arrival. Ortho aspirated fluid from L shoulder which showed ~6K nucleated cells. ID recommended continuing vancomycin and cefepime. Rheumatology was consulted for workup of inflammatory arthritis, and heme/onc was consulted for further workup of sickle cell disease vs trait. OBJECTIVE Vital Signs: Vitals: 05/27/24 1120 05/27/24 1140 05/27/24 1145 05/27/24 1149 BP: 127/84 122/77 124/85 116/76 Pulse: 88 89 89 88 Resp: 14 16 18 14 Temp: 98.2 ??F (36.8 ??C) SpO2: 96% Weight: Height: Temp Min: 97.6 ??F (36.4 ??C) Max: 99.1 ??F (37.3 ??C), Pulse Min: 76 Max: 95, Resp Min: 14 Max: 20, BP Min: 116/76 Max: 171/95 Intake & Output: In: 200 [P.O.:200] Out: - Physical Exam: Physical Exam Gen: NAD, normal appearance HEENT: AT/NC, EOMI, mucous membranes moist CV: RRR, no m/r/g Pulm: Nonlabored respirations, CTA Abd: Soft, NT/ND MSK: L BKA, R heel with wound dressing intact, pain in L shoulder Neuro: no focal deficits Psych: Appropriate mood and affect Current Medications: Scheduled: 0.9% NaCl 3 mL Intracatheter q8h amLODIPine 10 mg Oral QDAY carvedilol 12.5 mg Oral BID WC cefepime 2 g Intravenous TUES, THUR & SAT furosemide 40 mg Oral MON, WED AND FRI gabapentin 100 mg Oral TID heparin 5,000 Units Subcutaneous BID insulin aspart 0-12 Units Subcutaneous TID WC insulin glargine 8 Units Subcutaneous QDAY lisinopril 20 mg Oral QDAY renal vitamin 1 tablet Oral QDAY sennosides 8.6 mg Oral QDAY sevelamer carbonate 800 mg Oral TID WC vancomycin 1,000 mg Intravenous Once vancomycin (VANCOCIN) IV dose per pharmacy Does not apply DIRECTED Continuous: PRN: SALINE LOCK, INSERT AND MAINTAIN AND 0.9% NaCl AND 0.9% NaCl acetaminophen dextrose IV for hypoglycemia OR dextrose IV for hypoglycemia OR glucagon glucose (Diabetic Use) gel heparin HYDROmorphone ondansetron (disintegrating) OR ondansetron oxyCODONE (immediate release) OR oxyCODONE (immediate release) polyethylene glycol 3350 Significant Lab Results: Results for orders placed or performed during the hospital encounter of 05/23/24 (from the past 24 hour(s)) GLUCOSE - POINT OF CARE Result Value Ref Range Glucose WB/POC 215 (H) 70 - 115 mg/dL Specimen Type Arterial GLUCOSE - POINT OF CARE Result Value Ref Range Glucose WB/POC 208 (H) 70 - 115 mg/dL Specimen Type Cap Fingerstick VANCOMYCIN LEVEL RANDOM Result Value Ref Range Vancomycin Random 14.8 Therapeutic Ranges not established for random specimens ug/mL RENAL FUNCTION PANEL Result Value Ref Range BUN 31 (H) 7 - 26 mg/dL Creatinine 4.15 (H) 0.56 - 0.96 mg/dL Sodium 138 136 - 145 mmol/L Potassium 4.7 (H) 3.5 - 4.5 mmol/L Chloride 105 98 - 107 mmol/L CO2 28 22 - 29 mmol/L Glucose 119 (H) 70 - 115 mg/dL Albumin 1.9 (L) 3.4 - 5.0 g/dL Calcium 8.3 (L) 8.4 - 10.2 mg/dL Phosphorus 5.6 (H) 2.9 - 5.1 mg/dL Anion Gap 5 (L) 6 - 16 BUN/Creatinine Ratio 7 7 - 23 Osmolality Calculated 294 275 - 295 mOsm/kg eGFR by CKD-EPI 14 (L) >=90 mL/min/1.73 m2 CBC W AUTO DIFFERENTIAL Result Value Ref Range WBC 6.9 4.0 - 10.7 x10E9/L RBC Count 3.63 (L) 3.90 - 5.20 x10E12/L Hemoglobin 10.8 (L) 11.9 - 15.8 g/dL Hematocrit 35.2 34.8 - 46.1 % MCV 97.0 80.0 - 98.0 fL MCH 29.8 26.7 - 33.6 pg MCHC 30.7 (L) 31.7 - 36.3 g/dL RDW-CV 15.8 (H) 11.3 - 14.8 % Platelet Count 374 150 - 420 x10E9/L MPV 9.3 7.8 - 11.4 fL Neutrophil % 49.6 41.0 - 74.0 % Lymphocyte % 32.9 17.0 - 47.0 % Monocyte % 8.2 3.0 - 11.0 % Eosinophil % 8.4 (H) 0.0 - 7.0 % Basophil % 0.6 0.0 - 1.6 % Immature Granulocytes % 0.3 0.0 - 1.0 % Neutrophil Absolute 3.43 1.60 - 7.50 x10E9/L Lymphocyte Absolute 2.28 1.00 - 4.40 x10E9/L Monocyte Absolute 0.57 0.15 - 1.00 x10E9/L Eosinophil Absolute 0.58 0.00 - 0.60 x10E9/L Basophil Absolute 0.04 0.00 - 0.13 x10E9/L GLUCOSE - POINT OF CARE Result Value Ref Range Glucose WB/POC 113 70 - 115 mg/dL Specimen Type Arterial Microbiology: Recent Results (from the past 1008 hour(s)) CULTURE FLUID+GRAM STAIN Collection Time: 05/24/24 3:06 PM Specimen: Synovial Fluid Result Value Ref Range Culture No growth Gram Stain Light Polymorphonuclear cells Gram Stain Light Red blood cells Gram Stain No organisms seen CULTURE ANAEROBE Collection Time: 05/24/24 3:06 PM Specimen: Synovial Fluid; Microbiology Result Value Ref Range Culture Culture in progress Imaging & Studies: XR SHOULDER LEFT 2VW OR MORE Result Date: 05/24/2024 IMPRESSION: Suggestion of a lucency projecting approximately 2.1 cm in length in relationship to the undersurface of the acromion process. This has relatively well-defined margins and is not clearly defined on the prior study. This has a somewhat cystic appearance. There is no definite associated bony destructive process. If greater anatomic detail is desired, suggest MRI of the left shoulder. Nodefinite radiographic manifestations of osteomyelitis nor evidence of fracture nor dislocation. > Interpreting Provider: Jed Dale MD on 05/24/2024 2:22 PM ASSESSMENT & PLAN Osteomyelitis of left shoulder, unspecified type (HCC) (POA: Yes) ESRD (end stage renal disease) (HCC) (POA: Yes) Type 2 diabetes mellitus with diabetic polyneuropathy (HCC) (POA: Yes) Gay Canales is a 33YOF with PMH of T2DM c/b neuropathy and retinopathy (pt is blind), HTN, HFpEF, chronic R heel ulcer/osteomyelitis, L BKA, ESRD on HD TTS, and possible sickle cell disease who presented from OSH with concern for L shoulder septic arthritis and osteomyelitis. #L shoulder pain -Possible 2/2 septic arthritis, osteomyelitis, osteonecrosis, inflammatory arthritis -ID consulted and appreciate recommendations. L shoulder aspirate shows NGTD. Will continue vancomycin and cefepime for now -Ortho consulted and following. No acute surgical interventions at this time -Rheumatology consulted and believe cause is infectious -Will get L shoulder MRI tomorrow -Continue pain management with acetaminophen q6h prn, tiered oxy 5-10 mg q6h prn, and dilaudid breakthrough #Sickle cell disease vs trait -Heme/onc consulted and appreciate recommendations -Hemoglobin electrophoresis ordered and heme/onc will determine follow up based on results Chronic Problems: #Chronic R heel ulcer -Pt has chronic R heel ulcer which was treated with IV abx in 04/25. Declined amputation at the time -Wound care following #T2DM, c/b neuropathy and retinopathy -Increase insulin glargine to 8u -SSI mealtime and accuchecks -gabapentin 100mg TID for neuropathy #ESRD -Nephrology consulted and following -HD TTS -Continue sevelamer #HTN #HFpEF -Continue carvedilol, lasix, lisinopril, amlodipine -Daily weights #JIAN -Holding iron supplements in the setting of infection -Transfuse if Hgb < 7 Code: Full Code Diet: DIETARY NUTRITION SUPPLEMENTS ONCE DIET CONSISTENT CARB Electrolytes: Replete PRN PPx: Heparin Access: PIV Consults: IP CONSULT TO NUTRITIONAL SERV IP CONSULT TO INFECTIOUS DISEASES IP CONSULT TO NEPHROLOGY IP CONSULT TO AUDIOVISUAL LIBRARIAN IP CONSULT TO WOUND NURSE IP CONSULT TO HEMATOLOGY IP CONSULT TO RHEUMATOLOGY Dispo: Medicine floor The above assessment and plan will be discussed with the attending. This note is not final until attested by attending physician. Kishan Warren Giana Medical Student, MS3 [facility] 05/27/2024 12:34 PM * Bethanie Guerra OT - 05/27/2024 10:21 AM CDT [facility] Department of Physical Medicine & Rehabilitation Progress Note Patient: Gay Canales Med Record Number: [id number] Date of : 1990 Age: [age] year old 05/27/24 1021 Missed Visit Missed Visit Procedure Off Floor Patient off the floor Dialysis * Teri Narvaez PharmD - 05/27/2024 9:44 AM CDT ACTIVE CONSULTS TO PHARMACY/DISEASE STATE MONITORING Pharmacy Consult: Vancomycin ASSESSMENT/PLAN Indication: documented Bone/joint of chronic R heel ulcer/ostea (stable) and L shoulder osteo with Goal Level: 15-20 mcg/ml ID consulted/following: Yes History of MRSA bacteremia (02/16/2024) c/b left pectoralis major abscesses, and left shoulder septic arthritis and osteomyelitis: S/p abscess near L-shoulder aspiration (11 mL pus) on 02/25/2024, Gram stain showed no organisms and culture negative. Was treated with IV va ncomycin ->linezolid PO, 6 weeks total through 04/06/2024. However, image (CT or MRI) was not obtained at the end of 6 weeks of antibiotics to confirm resolution of the abscess. Assessment: Day of treatment: 13 End of treatment date: to be determined Current dosing regimen: 1000 mg,dosing post HD sessions Recent Labs Component Name 05/27/24 0659 05/26/24 0602 05/25/24 0643 05/24/24 0625 05/24/24 0548 03/02/24 0338 05/22/23 0521 05/21/23 0450 05/20/23 0918 05/17/23 2151 05/09/23 0357 05/08/23 0841 04/29/23 0338 04/28/23 0319 04/27/232018 CREATININE 4.15* 3.22* 4.06* 3.64* - 7.43* - 1.62* - - 1.83* - - 1.39* - BUN 31* 22 39* 33* - 39* - 13 - - 17 - - 13 - VANCORNDM 14.8 - - - 20.5 29.0 - - - - - - - - - VANCTROUGH - - - - - - - 15.5 - - 19.5 - - 34.6* - VANCOPEAK - - - - - - - - 20.1* - - 26.1 - - 46.6* - = values in this interval not displayed. Microbiology: Recent Labs Component Name 02/22/24 5029 MRSADPCR Detected* MRSA positive: Yes history of MRSA at OSH on 02/16/24 Other pertinent micro: Yes 05/27/23 bcx MRSE 02/16/24 bcx MRSA at OSH 02/22/24 bcx negative 02/25/24 abscess negative 05/20/24 bcx no growth 05/21/24 L shoulder aspiration no growth 05/24/24 L shoulder aspiration (synovial fluid) - NGTD Renal: Considered difficult to accurately assess at this time as patient is on scheduled dialysis TTS Level(s): See chart above Random level on 05/27 at 0659 was 14.8 mcg/ml. This level was 36 hours after last dose. Patient is on iHD with expected clearance of 20-30% per iHD session, the level reported above is expected to be within the therapeutic range after next HD session. Plan Dosing: Will continue serial dosing based on scheduled dialysis sessions with next session expected to be on 05/27. Will order dose of 1000 mg to be given on 05/27 at 1700. Monitoring Will order a vancomycin random level on 05/29 at 0400 with AM labs and adjust regimen if indicated. Continue to monitor patient???s renal function and cultures as needed. Teri Narvaez, PharmD 05/27/2024 9:[address] [facility] Vancomycin Guideline SUBJECTIVE/OBJECTIVE Gay Canales is a 33 year old female. Height: 6' (182.9 cm) Wt 93.4 kg (205 lb 14.6 oz) Body mass index is 27.93 kg/m??. Vancomycin Administrations from JAN (last 72 hours) Date/Time Action Medication Dose Rate 05/25/241915 $ New Bag/Syringe vancomycin (Vancocin) 1,000 mg in 0.9% NaCl IV 250 mL IVPB 1,000 mg 250 mL/hr * Graeme Salmon RN - 05/27/2024 7:21 AM CDT REPORT BEFORE DIALYSIS Diagnosis (BOBBY/CKF):CKF Non-Renal Diagnosis:Osteomyelitis of left shoulder, unspecified type (HCC) Isolation:No active isolations Does patient have signs or symptoms of respiratory infection (fever, cough, shortness of breath):No Allergies:No Known Allergies Code Status:Full Code Orientation Status:x4 On telemetry/Rhythm:no Oxygen:RA Given any medications:see mar Need for pain medications:lt shoulder Blood pressure issues:no On any drips:no Is patient diabetic:yes Any labs to draw:no Any other procedures today:MRI before dialysis Any concerns about this patient:no Any medications to be given with dialysis:see mar Due date of next Central Line Dressing change:unk Primary RN educated on Incapacitated Nurse:yes * Marlon Bal RN - 05/27/2024 6:43 AM CDT Problem: Pain/Discomfort Goal: Patient exhibits reduced pain/discomfort as evidenced by pain scores Outcome: Progressing Goal: Patient verbalizes acceptable level of pain relief and ability to engage in desired activity. Outcome: Progressing Problem: Fall Risk Goal: Fall risk and fall related injury risk are minimized (interventions related to the fall risk can be found in the flowsheet documentation) Outcome: Progressing Problem: Fluid and Electrolyte Imbalance Goal: Fluid and electrolyte balance are achieved/maintained Outcome: Progressing * Anahi Davis RN - 05/26/2024 3:50 PM CDT Problem: Pain/Discomfort Goal: Patient exhibits [...] in the flowsheet documentation) Outcome: Progressing Problem: Tissue injury due to various disease processes Goal: Provide optimal wound healing environment Outcome: Progressing Problem: Tissue Injury due to Inadequate Arterial Perfusion Goal: Maintain Clean/Stable wound environment Outcome: Progressing Problem: Tissue Injury due to Venous Hypertension Goal: Maintain Infection Free Stable Wound Environment Outcome: Progressing Problem: Tissue Injury Due to Loss of Protective Sensation Goal: Protect Injured Tissue and Prevent Further Injury Outcome: Progressing Problem: Tissue Injury Due to External Forces of Pressure, Friction, and Shear Goal: Protect Skin from External Forces Outcome: Progressing Goal: Maintain and Improve Tissue Tolerance to Pressure Outcome: Progressing Problem: Nutrient: Increased nutrient needs (specify) Goal: Total intake will meet estimated nutrient needs Outcome: Progressing Problem: Skin Integrity Goal: Skin integrity is maintained or improved Outcome: Progressing Problem: Hemodynamic Status/Cardiac Output Goal: Patient has stable vital signs and fluid balance Outcome: Progressing Problem: Fluid and Electrolyte Imbalance Goal: Fluid and electrolyte balance are achieved/maintained Outcome: Progressing Problem: Infection Goal: Signs and symptoms of infections are decreased or avoided Outcome: Progressing Problem: Transfers Goal: STG - Patient will transfer sit to and from stand Outcome: Progressing Problem: Balance Goal: LTG - Patient will demonstrate Intervention to enhance balance for safe completion of daily activities Outcome: Progressing * Tao Frances DO - 05/26/2024 1:02 PM CDT [facility] INTERNAL MEDICINE PROGRESS NOTE Patient: Gay Canales Sex: female Age: [age] year old Date of : 1990 Date of Admission: 05/23/2024 Date: 05/26/2024 LOS: 3 SUBJECTIVE Interval History: No acute events overnight. Patient endorses continued shoulder pain. Hospital Course: Per chart review with edits: Patient is a 33F with PMHx of T2DM, HTN, HFpEF, chronic right heel ulcer/osteomyelitis, prior L BKA, ESRD on HD TTS, possible sickle cell disease who presents from OSH with concerns of L shoulder septic arthritis. At OSH orthopedic surgery aspirated purulent fluid from her L shoulder. She was transferred to [facility] from further evaluation of her L shoulder. ID and orthopedic surgery was consulted on arrival. She was started on IC vanc and cefepime. Rheumatology and hematology were consulted for inflammatory arthropathy and sickle cell disease respectively. OBJECTIVE Vital Signs: Vitals: 05/25/24 2320 05/26/24 0422 05/26/24 0739 05/26/24 1148 BP: 129/70 148/87 156/83 152/90 Pulse: 80 79 81 81 Resp: 18 18 Temp: 98.4 ??F (36.9 ??C) 98.3 ??F (36.8 ??C) 98.5 ??F (36.9 ??C) SpO2: 93% 92% 96% 95% Weight: Height: Temp Min: 98 ??F (36.7 ??C) Max: 99.1 ??F (37.3 ??C), Pulse Min: 78 Max: 95, Resp Min: 15 Max: 20, BP Min: 128/82 Max: 166/92 Intake & Output: In: 1520 [P.O.:1520] Out: 3000 Physical Exam: Physical Exam HENT: Head: Normocephalic and atraumatic. Eyes: General: No scleral icterus. Cardiovascular: Rate and Rhythm: Normal rate and regular rhythm. Heart sounds: No murmur heard. No friction rub. No gallop. Pulmonary: Breath sounds: No wheezing, rhonchi or rales. Abdominal: Tenderness: There is no abdominal tenderness. Musculoskeletal: Right lower leg: No edema. Left lower leg: No edema. Comments: Painful L shoulder ROM Neurological: General: No focal deficit present. Mental Status: She is oriented to person, place, and time. Current Medications: Scheduled: 0.9% NaCl 3 mL Intracatheter q8h amLODIPine 10 mg Oral QDAY carvedilol 12.5 mg Oral BID WC [START ON 05/27/2024] cefepime 2 g Intravenous TUES, THUR & SAT furosemide 40 mg Oral MON, WED AND FRI gabapentin 100 mg Oral TID heparin 5,000 Units Subcutaneous BID insulin aspart 0-12 Units Subcutaneous TID WC insulin glargine 6 Units Subcutaneous QDAY lisinopril 20 mg Oral QDAY renal vitamin 1 tablet Oral QDAY sennosides 8.6 mg Oral QDAY sevelamer carbonate 800 mg Oral TID WC vancomycin (VANCOCIN) IV dose per pharmacy Does not apply DIRECTED Continuous: PRN: SALINE LOCK, INSERT AND MAINTAIN AND 0.9% NaCl AND 0.9% NaCl acetaminophen dextrose IV for hypoglycemia OR dextrose IV for hypoglycemia OR glucagon glucose (Diabetic Use) gel heparin HYDROmorphone ondansetron (disintegrating) OR ondansetron oxyCODONE (immediate release) OR oxyCODONE (immediate release) polyethylene glycol 3350 Significant Lab Results: reviewed Microbiology: reviewed Imaging & Studies: reviewed ASSESSMENT & PLAN Osteomyelitis of left shoulder, unspecified type (HCC) (POA: Yes) ESRD (end stage renal disease) (HCC) (POA: Yes) Type 2 diabetes mellitus with diabetic polyneuropathy (HCC) (POA: Yes) #L shoulder pain - possible 2/2 septic arthritis, inflammatory arthritis, osteomyelitis, osteonecrosis - ID and ortho consulted on arrival - on IV cefepime and vanc; cefe dosed per nephrology note (2g after HD) - no acute surgical intervention - rheumatology consulted for possible inflammatory arthropathy, appreciate recs - pain management tylenol q6h prn, tiered oxy 5-10 mg q6h prn and dilaudid breakthrough - L shoulder MRI w ordered - continue to monitor #sickle cell disease vs trait - unclear diagnosis, noted in chart review - hematology consulted for further workup, appreciate recs #T2DM #diabetic neuropathy - diabetic diet - lantus 6u - accuchecks and SSI AC - gabapentin 100 mg TID - will adjust insulin after 24 hours of having a diet #chronic R heel ulcer - hx IV abx in 2022 - wound care following, recs in their note #ESRD on HD - nephrology following - continue sevelemer #HFpEF #HTN - daily weights - continue carvedilol, lasix, lisinopril, and amlodipine #JIAN - hold all iron supplementation due to concerns of active infection - CTM and transfuse if Hgb < 7 Code: FULL Diet: diabetic Electrolytes: Replete PRN PPx: heparin Access: PIV Dispo: pending further workup, likely home The above assessment and plan will be discussed with the attending. This note is not final until attested by attending physician. Tao Frances DO Internal Medicine Resident [facility] 05/26/2024 1:02 PM Associated attestation - Hunter Chin III, MD - 05/26/2024 5:08 PM CDT I have chart reviewed, seen, and examined the patient. Together the resident and I formulated a therapeutic plan for this patient based on their subjective and objective findings, including any new lab and image findings. I agree with the assessment and plan as documented unless specifically mentioned below. Date of Service: Date of Resident's note Hunter Chin MD [facility], Hospital Medicine [facility] [employer] 05/26/24 5:08 PM * Khloe Lowery - 05/26/2024 11:55 AM CDT Updated progress notes sent to patient's Outpatient Hemodialysis Dialysis center. Khloe Lowery Kidney Navigator/ [facility] Ascom: [phone] Office: [phone] * Leigh Meek OT - 05/26/2024 9:37 AM CDT [facility] Physical Medicine and Rehabilitation Occupational Therapy Initial Evaluation Note Patient: Gay Cnaales Med Record Number: [id number] Date of : 1990 Age: [age] year old PPE worn by staff: gloves;mask - procedural PPE worn by patient: gown - patient, clean;socks - clean Recommendations: Discharge OT Discharge Recommendations: Patient would benefit from multidisciplinary therapy (return to previous facility) This recommendation is made due to ongoing [...] Level: as tolerated PRECAUTIONS: Weight Bearing Status: (WBAT LUE) DIAGNOSIS: Patient Active Problem List: Type 2 diabetes mellitus with diabetic polyneuropathy ([facility]) Intentional overdose of drug in tablet form ([facility]) Severe recurrent major 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 psychotic features ([facility]) PTSD (post-traumatic stress disorder) CHF (congestive heart failure) ([facility]) Left foot infection Hypoxia Essential hypertension Swelling of left foot MRSA bacteremia S/P AKA (above knee amputation) unilateral, left ([facility]) 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 ([facility]) Anemia Acute on chronic congestive heart failure, unspecified heart failure type ([facility]) Swelling of right upper extremity Thrombophlebitis 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 ([facility]) ESRD (end stage renal disease) ([facility]) 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, with long-term current use of insulin ([facility]) Insomnia Abscess of left shoulder Leukocytosis Hypoalbuminemia Osteomyelitis of left shoulder, unspecified type ([facility]) Past Medical History: Diagnosis Date Essential (primary) hypertension Heart failure ([facility]) Type 2 diabetes mellitus without complications ([facility]) SUBJECTIVE: Subjective: pt agreeable to therapy eval PATIENT GOALS: Patient's Primary Concern: d/c to different facility with more therapy Home Situation: Type of Residence: Half-Way (post acute rehab for 7-8 months) Equipment at Home: Wheelchair-Standard;Prosthesis (pt reports upcoming appt for new prosthesis d/t not fitting properly) Prior Level of Functioning: Mobility: Non-Ambulatory;Transfers Only (pivot) Fallen Within 6 Mos: No Have Help at Home?: Yes, there is help at home now Who assists you at home?: Staff (26/05) How often is assistance provided?: daily ( I'm independent. The only thing they do for me is get mewater , transfers to standard toilet, performs bed baths) Who manages medications?: staff Pain Assessment: Pain Location #1 Pain Scale/Observation: Numeric (0-10) Pain Rating Score #1: 0 Sedation Level #1: 1-Awake and alert OBJECTIVE: At start of therapy session, patient found in bed General Appearance: 33 y/o female received in NAD LDA: IV's: Peripheral line Edema: minimal LUE swelling Vitals: (*Assess the 3 levels of oxygen saturations both for room air and 02 unless rest on room air is 88% or less). Rest BP: 172/99 (12) HR: 85 Sp02 Sp02 98% Room Air L O2 RA Mental Status/Cognition: Level of Consciousness-Adult: Alert Orientation Level: Oriented X4 Cognition: Follows Commands-Consistent Attention Span: Appears intact Memory: Appears intact Following Commands: Follows all commands and directions without difficulty Safety Judgement: Good awareness of safety precautions Awareness of Errors: Good awareness of errors made Problem Solving: Able to problem solve independently UE ROM: RUE: AROM WFL LUE: AROM WFL- limited by pain Strength: RUE: WFL LUE: WFL UE Tone RUE: no abnormal tone noted LUE: no abnormal tone noted Coordination: WFL UE Proprioception RUE: WFL LUE: WFL UE Sensation RUE: no complaints of numbness or tingling LUE: no complaints of numbness or tingling Perception: Inattention/Neglect: Appears intact Mobility: A gait belt and non-slip socks were used for all out of bed activity this date. Bed Mobility: Rolling: Complete [place] Supine to Sit: Complete [place] with HOB in semi-fowlers position Sit to Supine: Complete [place] Transfers: Sit to Stand: Stand By Assist Stand to Sit: Stand By Assist Bed to Chair: (Declined transfer to chair due to discomfort with sitting in recliner) Transfer Device: Gait belt;Walker-2 Wheeled Balance: Sitting - Static: Good Sitting - Dynamic: Good Standing - Static: Fair +;With Both Upper Extremity's Support Standing - Dynamic: Fair;With Both Upper Extremity's Support Activities of Daily Living Feeding: Set-up Oral Facial Hygiene: Set-up (oral hygiene seated EOB) Upper Body Dressing: Stand By Assist (d/d gown seated EOB) Splint Issued/Checked: none ACTIVITY TOLERANCE: Activity Tolerance: Tolerates ADLs without rest breaks AM-PAC 6 Clicks Daily Activity Raw Score:: 21 TREATMENT / EDUCATION / INTERVENTIONS: While performing OT, Patient was instructed in:discharge planning, use of call light, OT eval Presented to patient who demonstrates Good understanding of instructions given. INFORMED CONSENT TO TREATMENT: Plan of care including recommended therapy, goals and frequency, discussed with patient who understands and agrees to proceed. ASSESSMENT: Functional performance limited due to: pain, decreased functional mobility, and decreased enduranceand activity tolerance. Short Term Goals: Goal Formation With patient Patient will perform home exercise program with stand by assist Patient will perform lower extremity dressing with minimal assist Patient will perform toileting with modified independence Patient will transfer to bedside commode with stand by assist Residential Goal(s): Patient to discharge to appropriate next [...] alarm on , with call light within reach. * Mary Winn, PT - 05/26/2024 9:27 AM CDT [facility] Physical Medicine and Rehabilitation Physical Therapy Initial Evaluation Note Patient: Gay Canales Med Record Number: [id number] Date of : 1990 Age: [age] year old PPE worn by staff: gloves;mask - procedural PPE worn by patient: gown - patient, clean;socks - clean Co-eval with OT Recommendations: Discharge PT Discharge Recommendations: Patient would benefit from multidisciplinary therapy (return to previous facility) This recommendation is made due to ongoing PT functional needs: address functional deficits In addition to the 1:1 evaluation of the patient, additional eval time was spent completing the chart review prior to the assessment, completing the multidisciplinary plan of care and education plan post evaluation and communicating results of the eval to other treatment team members Nurse contacted regarding patient status and/or discharge plan. 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 psychotic features (HCC) PTSD (post-traumatic stress disorder) CHF (congestive heart failure) ([facility]) Left foot infection Hypoxia Essential hypertension Swelling of left foot MRSA bacteremia S/P AKA (above knee amputation) unilateral, left ([facility]) 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 ([facility]) Anemia Acute on chronic congestive heart failure, unspecified heart failure type ([facility]) Swelling of right upper extremity Thrombophlebitis 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 ([facility]) ESRD (end stage renal disease) ([facility]) 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, with long-term current use of insulin ([facility]) Insomnia Abscess of left shoulder Leukocytosis Hypoalbuminemia Osteomyelitis of left shoulder, unspecified type ([facility]) Past Medical History: Diagnosis Date Essential (primary) hypertension Heart failure ([facility]) Type 2 diabetes mellitus without complications ([facility]) SUBJECTIVE: Subjective: I can PATIENT GOALS: Patient's Primary Concern: Increase strength Home Situation: Type of Residence: Half-Way (post acute rehab for 7-8 months) Equipment at Home: Wheelchair-Standard;Prosthesis (pt reports upcoming appt for new prosthesis d/t not fitting properly) Prior Level of Functioning: Prior Level of Function Mobility: Non-Ambulatory;Transfers Only (pivot) Fallen Within 6 Mos: No Have Help at Home?: Yes, there is help at home now Who assists you at home?: Staff (26/05) How often is assistance provided?: daily ( I'm independent. The only thing they do for me is get mewater , transfers to standard toilet, performs bed baths) Pain Assessment: Pain Location #1 Pain Scale/Observation: Numeric (0-10) Pain Rating Score #1: 0 Sedation Level #1: 1-Awake and alert OBJECTIVE: At start of therapy session, patient found in bed and with no alarm. General Appearance: 33 year old female laying in the bed, NAD LDAs: IV's: Peripheral line, dialysis port Edema: no edema noted in bilateral lower extremities Vitals: (*Assess the 3 levels of oxygen saturations both for room air and 02 unless rest on room air is 88% or less). Rest BP: 172/99 HR: 85 Sp02 98% Room Air Observations: No signs of distress or patient c/o shortness of breath/dizziness during treatment. Mental Status/Cognition: Level of Consciousness-Adult: Alert Orientation Level: Oriented X4 Cognition: Follows Commands-Consistent Attention Span: Appears intact Memory: Appears intact Following Commands: Follows all commands and directions without difficulty Safety Judgement: Good awareness of safety precautions Awareness of Errors: Good awareness of errors made ROM: RLE: AROM WFL LLE: AROM WFL Strength: RLE:WFL LLE: WFL Sensation: RLE: no complaints of numbness or tingling LLE: no complaints of numbness or tingling Visual Motor Tracking: (Limited at baseline, reports she can see limited colors and shapes) Mobility: A gait belt and non-slip socks were used for all out of bed activity this date. Bed Mobility: Rolling: Complete [place] Supine to Sit: Complete [place] with HOB in semi-fowlers position Sit to Supine: Complete [place] Transfers: Sit to Stand: Stand By Assist Stand to Sit: Stand By Assist Bed to Chair: (Declined transfer to chair due to discomfort with sitting in recliner) Gait: Weight Bearing Status: (WBAT LUE) Distance Ambulated (ft): (Non-ambulatory at PLOF) Balance: Balance Scales/Tests Used: Sitting: Static/Dynamic;Standing: Static/Dynamic Sitting - Static: Good Sitting - Dynamic: Good Standing - Static: Fair +;With Both Upper Extremity's Support Standing - Dynamic: Fair;With Both Upper Extremity's Support ACTIVITY TOLERANCE: Patient's activity tolerance: fair TREATMENT/INTERVENTIONS: evaluation AM-PAC 6 Clicks Mobility Raw Score:: 16 EDUCATION: While performing PT, Patient was instructed in:functional mobility training, weight bearing status, safety awareness/fall precautions , discharge planning, use [...] Goals: Goal Formation With patient Patient will transfer sit to/from stand independently Patient will transfer bed to/from chair independently Process Machine Operator Goal(s): Patient to discharge to appropriate next level of inpatient care. Equipment Issued: gait belt Plan: Transfer training Assistive device training Bed mobility training Balance training Safety awareness If patient is discharged from the facility, this note serves as a discharge summary if further physical therapy visits did not occur. Refer to filed flowsheet for further details. Following therapy session, patient left in bed, with bed alarm on , with call light within reach, with RN, Debra aware, with therapy cues visible on white board. * Eli Colindres - 05/26/2024 8:29 AM CDT [facility] Nephrology Progress Note Date of Service: 05/26/2024 INTERVAL HISTORY: Underwent ED yesterday 05/25 with net UF 3L. Tolerated well. Today, pt doing well. Some L shoulder pain but well controlled with medication. Euvolemic. Hospital Medications: 0.9% NaCl 3 mL Intracatheter q8h amLODIPine 10 mg Oral QDAY carvedilol 12.5 mg Oral BID WC cefepime 1 g Intravenous q24h furosemide 40 mg Oral MON, WED AND FRI gabapentin 100 mg Oral TID heparin 5,000 Units Subcutaneous BID insulin aspart 0-12 Units Subcutaneous TID WC insulin glargine 6 Units Subcutaneous QDAY lisinopril 20 mg Oral QDAY renal vitamin 1 tablet Oral QDAY sennosides 8.6 mg Oral QDAY sevelamer carbonate 800 mg Oral TID WC vancomycin (VANCOCIN) IV dose per pharmacy Does not apply DIRECTED Physical Exam: Vitals: 05/25/24 1921 05/25/24 2320 05/26/24 0422 05/26/24 0739 BP: 139/83 129/70 148/87 156/83 Pulse: 87 80 79 81 Resp: 18 Temp: 99.1 ??F (37.3 ??C) 98.4 ??F (36.9 ??C) 98.3 ??F (36.8 ??C) SpO2: 95% 93% 92% 96% Weight: Height: Intake/Output Summary (Last 24 hours) at 05/26/2024 0830 Last data filed at 05/25/2024 1756 Gross per 24 hour Intake 800 ml Output 3000 ml Net -2200 ml Genera Appearance: NAD Neck:Supple Cardiovascular: Well perfused Respiratory: Normal WOB Abdomen: ND Extremities: No LE edema Dialysis access: RIJ permacath c/d/i LABS: Recent Labs Component Name 05/26/24 0602 05/25/24 0643 05/24/24 0625 NA 137 139 139 POTASSIUM 4.4 5.1* 4.2 CL 104 106 104 CO2 26 19* 26 BUN 22 39* 33* CREATININE 3.22* 4.06* 3.64* Recent Labs Component Name 05/26/24 0602 05/25/24 0643 05/24/24 0625 03/02/24 0338 CALCIUM 8.5 8.6 8.5 8.8 PHOS 4.8 4.7 - 7.3* Recent Labs Component Name 02/25/24 0110 PTHINTACT 93.0* Recent Labs Component Name 05/26/24 0602 05/25/24 0643 05/24/24 0548 WBC 8.0 8.6 8.9 HGB 10.2* 9.9* 9.9* Recent Labs Component Name 02/25/24 0110 IRON 23* TIBC 149* FERRITIN 833* ASSESSMENT ESRD on maintenance dialysis: Chronic kidney disease-mineral and bone disorder (CKD-MBD): Anemia of chronic kidney disease on dialysis: Hypertension: RECOMMENDATIONS Will continue maintenance HD TTS For cefepime, dosing for empiric therapy for pt on dialysis is 2g after HD, on dialysis days only. Please refer to the initial nephrology consult note for additional information. Eli Colindres, MS4 Associated attestation - Tao Stein MD - 05/26/2024 9:19 PM CDT I have verified the documentation of the Medical student, including all history, exam, and medical decision-making details. I have personally performed a physical exam and have personally reviewed the data to support my medical decision-making as outlined in the student's note, and I arrive independently at the same conclusion. Date of Service: 05/26/2024 Tao Stein MD * Joy Stein RN - 05/25/2024 7:24 PM CDT Problem: Pain/Discomfort Goal: Patient exhibits [...] in the flowsheet documentation) Outcome: Progressing Problem: Tissue injury due to various disease processes Goal: Provide optimal wound healing environment Outcome: Progressing Problem: Tissue Injury due to Inadequate Arterial Perfusion Goal: Maintain Clean/Stable wound environment Outcome: Progressing Problem: Tissue Injury due to Venous Hypertension Goal: Maintain Infection Free Stable Wound Environment Outcome: Progressing Problem: Tissue Injury Due to Loss of Protective Sensation Goal: Protect Injured Tissue and Prevent Further Injury Outcome: Progressing Problem: Tissue Injury Due to External Forces of Pressure, Friction, and Shear Goal: Protect Skin from External Forces Outcome: Progressing Goal: Maintain and Improve Tissue Tolerance to Pressure Outcome: Progressing Problem: Nutrient: Increased nutrient needs (specify) Goal: Total intake will meet estimated nutrient needs Outcome: Progressing Problem: Skin Integrity Goal: Skin integrity is maintained or improved Outcome: Progressing Problem: Hemodynamic Status/Cardiac Output Goal: Patient has stable vital signs and fluid balance Outcome: Progressing Problem: Fluid and Electrolyte Imbalance Goal: Fluid and electrolyte balance are achieved/maintained Outcome: Progressing Problem: Infection Goal: Signs and symptoms of infections are decreased or avoided Outcome: Progressing * Artemio Sanon RN - 05/25/2024 3:43 PM CDT WOUND OSTOMY NURSE CONSULT NOTE Gay Canales is an 33 year old femalewho has a present on admission wound . This consultation was requested by JIMMIE Shin. History Social History Substance and Sexual Activity [...] 24 hours. (Patient not taking: Reported on 05/23/2024) Alcohol Swabs (Alcohol Prep) 70 % USE ONE SWAB TO CLEAN SKIN FOUR TIMES DAILY BEFORE TESTING 100 Each PRN amLODIPine (Norvasc) 10 MG tablet Take 1 (one) tablet by mouth once daily bisacodyl (Dulcolax) 10 MG suppository Insert 1 (one) suppository into the rectum once daily as needed for Constipation (Patient not taking: Reported on 05/23/2024) blood glucose (MONOCOuch Verio) test strip USE ONE STRIP TO TEST BLOOD SUGAR FOUR TIMES DAILY 100 strip PRN Blood Glucose Monitoring Suppl ([facility] Verio Reflect) w/Device KIT Use 1 kit [...] Units subcutaneously 3 times daily with meals Lancets (DogsterTOUCH DELICA PLUS 33G EXTRA FINE LANCET) USE ONE LANCET TO PRICK FINGER FOUR TIMES DAILY FOR BLOOD GLUCOSE TESTING 100 Each PRN lisinopril (Prinivil; Zestril) 20 MG tablet Take 1 (one) tablet by mouth once daily melatonin 3 MG tablet Take 1 (one) tablet by mouth nightly as needed for Insomnia nystatin (Mycostatin) 347647 UNIT/GM powder Apply to affected area 3 times daily polyethylene glycol 3350 (Miralax) 17 g packet [...] smartLinks are not currently available Assessment Vitals: 05/25/24 1126 05/25/24 1141 05/25/24 1156 05/25/24 1519 BP: 134/85 128/82 138/88 157/87 Pulse: 90 89 95 81 Resp: 18 16 18 18 Temp: 98.5 ??F (36.9 ??C) 98.7 ??F (37.1 ??C) 98.2 ??F (36.8 ??C) SpO2: 97% 98% Weight: Height: Pain Assessment Pain Location #1 Pain Scale/Observation: Numeric (0-10) Pain Rating Score #1: 6 Sedation Level #1: 1-Awake and alert Goal Numeric Pain Scale: 2 Functional Goal: Ability to adequately rest Functional Goal Met?: Yes Pain Location : Shoulder Pain Orientation: Left;Right Pain Quality: Sore;Discomfort Aggravating Factors: Movement Relieved By: Medications;Rest Pain Intervention(s): Medication (see MAR) Behaviors/Assumed Pain Present : Calm Bhavin Score Bhavin Scale - Adult Sensory Perception: No Impairment Moisture: Rarely Moist Activity: Chairfast Mobility: Very Limited Nutrition: Excellent Friction and Shear: No Apparent Problem Total Score: 19 The patient was seen and she reports a right plantar heel wound. ON assessment she has a full thickness DFU to right plantar heel that is 3.8 x 2 x 0.8 cm, with a firm callus all around the open wound. There is no drainage or odor present. Mild erythema is noted to the heel. 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 Recommendations: - cleanse and gently fill the wound with a VASHE moist 2 x 2 gauze, then cover with an ABD, secure with Kerlix. Change daily and prn if soiled dressings. Wound care was completed during my visit and the patient tolerated well. Re consult with any new needs. Artemio Sanon RN * Tao Frances DO - 05/25/2024 2:14 PM CDT [facility] INTERNAL MEDICINE PROGRESS NOTE Patient: Gay Canales Sex: female Age: [age] year old Date of : 1990 Date of Admission: 05/23/2024 Date: 05/25/2024 LOS: 2 SUBJECTIVE Interval History: No acute events overnight. Patient seen getting dialysis. Hospital Course: Per chart review with edits: Patient is a 33F with PMHx of T2DM, HTN, HFpEF, chronic right heel ulcer/osteomyelitis, prior L BKA, ESRD on HD TTS, possible sickle cell disease who presents from OSH with concerns of L shoulder septic arthritis. At OSH orthopedic surgery aspirated purulent fluid from her L shoulder. She was transferred to [facility] from further evaluation of her L shoulder. ID and orthopedic surgery was consulted on arrival. She was started on IC vanc and cefepime. OBJECTIVE Vital Signs: Vitals: 05/25/24 1111 05/25/24 1126 05/25/24 1141 05/25/24 1156 BP: 140/91 134/85 128/82 138/88 Pulse: 90 90 89 95 Resp: 17 18 16 18 Temp: 98.5 ??F (36.9 ??C) 98.7 ??F (37.1 ??C) SpO2: 97% Weight: Height: Temp Min: 98 ??F (36.7 ??C) Max: 98.8 ??F (37.1 ??C), Pulse Min: 78 Max: 95, Resp Min: 15 Max: 20, BP Min: 128/82 Max: 166/92 Intake & Output: In: 1670 [P.O.:1670] Out: - Physical Exam: Physical Exam HENT: Head: Normocephalic and atraumatic. Eyes: General: No scleral icterus. Cardiovascular: Rate and Rhythm: Normal rate and regular rhythm. Heart sounds: No murmur heard. No friction rub. No gallop. Pulmonary: Breath sounds: No wheezing, rhonchi or rales. Abdominal: Tenderness: There is no abdominal tenderness. Musculoskeletal: Right lower leg: No edema. Left lower leg: No edema. Comments: L AKA and R heel ulcer seen Neurological: General: No focal deficit present. Mental Status: She is oriented to person, place, and time. Current Medications: Scheduled: 0.9% NaCl 3 mL Intracatheter q8h amLODIPine 10 mg Oral QDAY carvedilol 12.5 mg Oral BID WC cefepime 1 g Intravenous q24h furosemide 40 mg Oral MON, WED AND FRI gabapentin 100 mg Oral TID heparin 5,000 Units Subcutaneous BID insulin aspart 0-12 Units Subcutaneous TID WC insulin glargine 6 Units Subcutaneous q24h lisinopril 20 mg Oral QDAY renal vitamin 1 tablet Oral QDAY sennosides 8.6 mg Oral QDAY sevelamer carbonate 800 mg Oral TID WC vancomycin 1,000 mg Intravenous Once vancomycin (VANCOCIN) IV dose per pharmacy Does not apply DIRECTED Continuous: PRN: SALINE LOCK, INSERT AND MAINTAIN AND 0.9% NaCl AND 0.9% NaCl acetaminophen dextrose IV for hypoglycemia OR dextrose IV for hypoglycemia OR glucagon glucose (Diabetic Use) gel heparin HYDROcodone-acetaminophen HYDROmorphone ondansetron (disintegrating) OR ondansetron polyethylene glycol 3350 Significant Lab Results: reviewed Microbiology: reviewed Imaging & Studies: reviewed ASSESSMENT & PLAN Osteomyelitis of left shoulder, unspecified type (HCC) (POA: Yes) ESRD (end stage renal disease) (HCC) (POA: Yes) Type 2 diabetes mellitus with diabetic polyneuropathy (HCC) (POA: Yes) #L shoulder pain - possible 2/2 septic arthritis, inflammatory arthritis, osteomyelitis, osteonecrosis - ID and ortho consulted on arrival - on IV cefepime and vanc - no acute surgical intervention - rheumatology consulted for possible inflammatory arthropathy, appreciate recs - continue to monitor #sickle cell disease vs trait - unclear diagnosis, noted in chart review - hematology consulted for further workup, appreciate recs #T2DM #diabetic neuropathy - diabetic diet - lantus 6u - accuchecks and SSI AC - gabapentin 100 mg TID #chronic R heel ulcer - hx IV abx in 2022 - wound care consulted, appreciate recs #ESRD on HD - nephrology following - continue sevelemer #HFpEF #HTN - daily weights - continue carvedilol, lasix, lisinopril, and amlodipine #JIAN - hold all iron supplementation due to concerns of active infection - CTM and transfuse if Hgb < 7 Code: FULL Diet: diabetic Electrolytes: Replete PRN PPx: heparin Access: PIV Dispo: pending further workup, likely home The above assessment and plan will be discussed with the attending. This note is not final until attested by attending physician. Tao Frances DO Internal Medicine Resident [facility] 05/25/2024 2:14 PM Associated attestation - Hunter Chin III, MD - 05/26/2024 5:07 PM CDT I have chart reviewed, seen, and examined the patient. Together the resident and I formulated a therapeutic plan for this patient based on their subjective and objective findings, including any new lab and image findings. I agree with the assessment and plan as documented unless specifically mentioned below. Date of Service: Date of Resident's note Hunter Chin MD [facility], [facility] Medicine [facility] [employer] [facility] [employer] [facility] [employer] 05/26/24 5:07 PM * Roxanna Roth PA-C - 05/25/2024 12:54 PM CDT [facility] Infectious Diseases Inpatient Progress Note Patient Name: Gay Canales 1990 Room: [facility] Date of Admission: 05/23/2024 Date of Service: 05/25/2024 Primary Care Physician: CHERISE MARCELO PA-C Attending Physician: Hunter Chin III, MD Reason for Infectious Disease Consultation Left shoulder septic bursitis / osteomyelitis, antibiotic recommendations IMPRESSION Left shoulder septic bursitis / osteomyelitis History of MRSA bacteremia History of left pectoral abscess s/p I&D and antibiotic treatment, EOT 04/07/2024 Chronic right heel ulcer with chronic osteomyelitis DM2 ESRD on HD RECOMMENDATIONS - Continue IV vancomycin - Continue IV cefepime - Recommend rheumatology consult - Recommend hematology consult - Continue to follow cultures from aspiration left shoulder this admission - Recommend nephrology consult for HD line dressing, with open to air, patient at high risk for line infection - Please obtain CBC w diff, CMP, ESR, CRP, vancomycin trough at least weekly while on IV antibiotics. - As part of routine screening, HCV antibody with reflex to HCV RNA quantitative (universally recommended per CDC guidelines) Note: Rheumatology and /or hematology consult recommendation. Patient with concerning septic arthritis right shoulder 02/2024, aspiration not consistent with septic arthritis. Left shoulder aspiration05/21/2024 at OSH, cultures with no growth and repeat aspiration 05/24/2024 with synovial fluid 6k Nucleated cells. Although results could be slightly inaccurate due to exposure to antibiotics prior toaspiration, this is concerning for possible inflammatory arthropathy. Patient has ?sickle cell disease with no formal diagnosis. Sickle cell disease will put patient at higher risk of osteomyelitis and osteonecrosis. Primary team updated with above recommendations. Please call the Ortho ID pager [phone] with any questions. DISCUSSION Gay Canales is a 33 year old female with PMH of blindness, T2DM, HTN, chronic HFpEF, chronic right heel ulcer/osteomyelitis(tx only with IV abx) , prior left BKA, ESRD on HD (//Fri) and possible sickle cell disease, permanent residence at [facility]. Patient presented to [facility] on 05/23/2024 as OSH transfer for concerns of left shoulder septic bursitis / osteomyelitis. Left shoulder septic bursitis / osteomyelitis - 05/20/2024: Bcx no growth - 05/21/2024: S/p OSH left shoulder aspiration, culture no growth - 05/24/2024: S/p left shoulder aspiration. Synovial fluid with 6k nucleated cells, 83% neutrophils,610,000 RBCs. ?decreased nucleated cells due to antibiotic admin since 05/15/2024 vs. Inflammatory arthropathy. - On IV vancomycin / IV cefepime - Recommend rheumatology consult History of MRSA bacteremia History of left pectoral abscess s/p I&D and antibiotic treatment - Patient at increased risk for recurrent MRSA infection Chronic right heel ulcer with chronic osteomyelitis - does not appear infected at this time - No indication to treat chronic osteo with stable wound ?Sickle Cell - Recommend hematology consult DM2 - A1C 6.5 on 02/23/2024 - Continue care per primary team ESRD on HD - Followed by nephrology - Need right IJ permacath dressing evaluated by nephrology due to itching CDC Screening - HIV negative 02/24/2024 - Recommend Hep C testing QTC: Not available Renal Function: Estimated Creatinine Clearance: 25.7 mL/min (A) (by C-G formula based on SCr of 4.06 mg/dL (H)). Hardware: None Thank you for for this interesting consult. We will continue to follow and monitor with you closely. Please call the Ortho ID pager [phone] with any questions. I spent 35 mins in the care of this patient to include chart review, coordination of care, and patient interview / examination / education independent from the attending physician. I spent an additional 10 mins in discussion with attending physician Aldo regarding patient case. Patient case discussed with ID attending. JESSICA Sorensen, [facility] Division of Infectious Diseases Pager: [phone], valuklik Chat preferred ID Clinic ID Clinic Subjective History of Present Illness: Gay Canales is a 33 year old female with PMH of blindness, T2DM, HTN, chronic HFpEF, chronic right heel ulcer/osteomyelitis(tx only with IV abx) , prior left BKA, ESRD on HD (//Fri) and possible sickle cell disease, permanent residence at [facility]. Patient presented to [facility] on 05/23/2024 as OSH transfer for concerns of left shoulder septic bursitis / osteomyelitis. Per chart review and clarification with patient, she had a left axillary abscess in February 2024 which was treated with I&D and a short course of PO antibiotics. She has had progressive worsening of her shoulder pain. Presented to OSH (Loc) on 05/15/2024. CT left shoulder showed large complex subacromial / subdeltoid and subcoracoid bursal fluid collection associated with osteolysis at the coracoid process and under surface of the acromion consistent with septic bursitisand osteomyelitis. Patient started on IV vancomycin and cefepime at OSH. OSH records received with blood cultures from 05/20 with no growth. Orthopedic surgery at OSH aspirated 145 cc purulent / serosanguineous fluid from left shoulder on 05/21/2024. Gram stain from OSH shows no organisms and no culture growth to date. Patient transferred to [facility] on 05/23/2024 for further evaluation. Labs at transfer with CRP 1.4, ESR 114, WBC 8.9, Alk phos 170. Otherwise stable. Patient has right IJ HD permacath. She reports that it is open to air most of the time secondary toitching around the dressing. She has a chronic wound on her right heel which is not painful and has not worsened since she had an I&D in 04/2023 and completed IV antibiotics for osteomyelitis. Previous [facility] Hx: 04/26/2023 -05/09/2023: Presented for for foot [...] transitioned to PO linezolid to complete treatment. ID consulted for left shoulder septic bursitis osteomyelitis. Interval history: 05/24/2024: Ortho left shoulder aspiration: Synovial fluid 6k nucleated cells, 83% neutrophils, 610,000 RBC. Cultures in progress, no organisms on gram stain. Today: 05/25/2024: Today patient reports that she continues to have severe left shoulder pain (/10). She reports it is worse from yesterday since aspiration. No fevers, chills, nausea, vomiting, diarrhea. Tolerating antibiotics. Medical History Past Medical History: Diagnosis Date Essential (primary) hypertension Heart failure (HCC) Type 2 diabetes mellitus without complications (HCC) Surgical History Past Surgical History: Procedure Laterality Date LEG AMPUTATION ABOVE KNEE Left 12/05/2022 Left; AMPUTATION ABOVE LEFT KNEE Leg Amputation, Below Knee Left 12/02/2022 Left; LEFT ANKLE DISARTICULATION LEVEL 2 @ 2220 Social History Living situation: Permanent resident at [facility] HIV status: Negative 02/24/2024 Social History Socioeconomic History Marital status: Single Tobacco Use Smoking status: Former Types: Cigarettes Start date: 2010 Smokeless tobacco: Never Tobacco comments: Quit 4-5 months after starting Vaping Use Vaping Use: Never used Substance and Sexual Activity Alcohol use: Not Currently Comment: Occassionally Drug use: Not Currently Types: Marijuana Comment: At age 20 for 4-5 months Sexual activity: Not Currently Immunizations: Immunization History Administered Date(s) Administered DTP, [...] Review of Systems Review of Systems Constitutional: Negative. HENT: Negative. Eyes: Blindness Respiratory: Negative. Cardiovascular: Negative. Gastrointestinal: Negative. Genitourinary: Negative. Musculoskeletal: Bilateral shoulder pain, L>R. S/p Left AKA Right heel ulcer, chronic Skin: Itching with right HD IJ dressing Neurological: Negative. Endo/Heme/Allergies: Negative. Psychiatric/Behavioral: Negative. Allergies No Known Allergies Antimicrobial History Current Antibiotics IV vancomycin (05/24/2024 - present) IV cefepime (05/24/2024 - present) Prior Antibiotics At [facility] Prior Antibiotics at OSH PO Linezolid (Completed 04/2024) Home Medications Prior to Admission medications Medication Sig Start Date End Date Taking? Authorizing Provider acetaminophen (Tylenol) 500 MG tablet Take 1 (one) tablet by mouth every 4 hours Maximum allowable Acetaminophen amount = 4 Grams (4000 mg) / 24 hours. Patient not taking: Reported on 05/23/2024 03/02/24 Martine Morrissey MD Alcohol Swabs (Alcohol [...] for Constipation Patient not taking: Reported on 05/23/2024 02/28/24 Geronimo Burleson MD blood glucose (OneTouch Verio) test strip USE ONE STRIP TO TEST BLOOD SUGAR FOUR TIMES DAILY 12/12/22Amanda Georges MD Blood Glucose Monitoring Suppl (OneTouch Verio Reflect) w/Device KIT Use 1 kit 4 times daily USE METER TO CHECK BLOOD GLUCOSE FOUR TIMES DAILY Reasons: CALL [facility] WHEN DELIVERING [id number] 12/12/22 Amanda Georges MD carvedilol (Coreg) 12.5 MG tablet Take 1 (one) tablet by mouth 2 times daily with morning and evening meal 12/12/22 Yes Rosi Menard V., TAPPING 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 User maynot have seen previous data. Pulse 95 Comment: Simultaneous filing. User may not have seen previous data. Temp 98.7 ??F (37.1 ??C) (Oral) Comment: Simultaneous filing. User may not have seen previous data. Resp 18 Ht 1.829 m (6') Wt 93.4 kg (205 lb 14.6 oz) SpO2 97% Comment: Simultaneous filing. User may not have seen previous data. Temp (24hrs), Av.4 ??F (36.9 ??C), Min:98.2 ??F (36.8 ??C), Max:98.8 ??F (37.1 ??C) Physical Exam PHYSICAL EXAM General: Alert, no distress, not toxic appearing, laying in bed and appears comfortable, currently in HD Head: Normocephalic, atraumatic EENT: Patient blind. Nose Normal. Lungs: Breathing comfortably and in no acute distress Extremities: Right shoulder with tenderness over joint. Left upper extremity with increased tenderness and swelling over the anterior shoulder joint compared to the right. Right foot with ulcer present. Left AKA with no signs of infection. Skin: No rashes. Neurologic: Alert and oriented x 3, moving all extremities Psychiatry: Appropriate mood/affect Lines: right HD IJ with no dressing, PIV left forearm Lab Review CBC: Recent Labs Component Name 05/25/24 0643 05/24/24 0548 03/02/24 0338 WBC 8.6 8.9 14.0* RBC 3.38* 3.36* 3.03* HGB 9.9* 9.9* 8.8* HCT 32.7* 32.7* 29.2* MCV 96.7 97.3 96.4 BMP: Recent Labs Component Name 05/25/24 0643 05/24/24 0625 03/02/24 0338 02/23/24 0737 02/22/24221306/10/23 0939 NA 139 139 137 - 136 143 CL 106 104 102 - 100 110* CO2 19* 26 25 - 26 25 BUN 39* 33* 39* - 21 8 CREATININE 4.06* 3.64* 7.43* - 4.88* 1.96* ALB 2.0* 1.9* - - 1.5* 1.5* PROT - 7.2 - - 8.1 5.8* - = values in this interval not displayed. estimated creatinine clearance is 25.7 mL/min (A) (by C-G formula based on SCr of 4.06 mg/dL (H)). LFTs: Recent Labs Component Name [...] not displayed. Coagulation: Recent Labs Component Name 02/22/24 2214 04/26/23 0629 PT 14.6 16.3* INR 1.2 1.3 PTT - 29.8 ESR: Recent Labs Component Name 05/24/24 0548 02/23/24 0737 06/10/23 0939 ESR 114* 116* 57* CRP: Recent Labs Component Name 05/24/24 0625 02/23/24 0737 06/10/23 0939 CRP 1.4* 8.3* <0.5 CK: No results for input(s): CK in the last 90896 hours. Microbiology, Imaging and other diagnostic tests MICROBIOLOGY: Blood culture: 05/20/2024: OSH No growth Aspiration Left shoulder OSH 05/21/2024: Gram stain (no organisms, many WBCs); Culture no growth Aspiration Left shoulder - [facility] 05/24/2024: - Culture: In process, no organisms on gram stain. - Synovial fluid Latest Reference Range & Units 05/24/24 15:05 Source Fluid Synovial Synovial Color Fluid RED Appearance Fluid BLOODY Total Nucleated Cells Fluid <=200 x10E6/L 6,498 (H) Neutrophils % Fluid % 83 Lymphocyte % Fluid % 9 Macrophage % Fluid % 8 Cells Counted Fluid x10E6/L 100 RBC Fluid Reference Range Not Established x10E6/L 610,000 (H): Data is abnormally high Other Serologies: HISTOPATHOLOGY: None at this admission IMAGING & PROCEDURES: Pertinent images independently reviewed; report in chart XR Left shoulder (05/24/2024): IMPRESSION: Suggestion of a lucency projecting approximately [...] osteomyelitis nor evidence of fracture nor dislocation. Associated attestation - Chloe Carlson MD - 05/26/2024 9:[address] [facility] Infectious Diseases Attending Note Documentation Date/Time: 05/25/2024, 3:11 PM The patient was seen and evaluated with Roxanna Roth PA-C. I agree with the findings as described in the note, including the history, interval changes, ROS, examination, objective data interpretation, impression and plan as documented, though specifically I note the followin33 year old female with PMH of HTN, HFpEF, T2DM, blindness, chronic right heel osteomyelitis, s/p left BKA, ESRD on hemodialysis TTS via R IJ Permcath (HD initiated 7 months ago per patient), and ?sickle cell disease, presenting on 05/23/2024 as an OSH transfer for management of osteomyelitis of left shoulder. Recurrent left shoulder septic arthritis and osteomyelitis, vs other inflammatory etiologies/autoimmune related arthropathy: Could be from partially treated infection (see #2), or re-infection source potentially from (1) chronic right heel wound; or (2) R IJ Permcath related infection; or (3) non infection related inflammatory etiologies. 05/24/2024 aspiration of the left shoulder with Ortho, 50 mL of bloody and purulent fluid was aspirated (was on IV vancomycin and cefepime at OSH), fluid total nucleated cells only ~6500 (not typicalinfectious picture); Gram stain no organisms seen, follow final cultures. Rheumatology consult for inflammatory related arthropathy work up. Obtain MRI Left Shoulder to characterize the change as part of the etiology work up. Continue IV vancomycin and IV cefepime for now. Follow up further plan from orthopedic surgery. History of MRSA bacteremia (02/16/2024) c/b left axillary abscess s/p I&D and a short course ofPO antibiotics; left pectoralis major abscesses, and left shoulder septic arthritis and osteomyelitis: S/p abscess near left shoulder aspiration (11 mL pus) on 02/25/2024, Gram stain with no organisms and culture negative. Was treated with IV vancomycin ->PO linezolid, 6 weeks total through 04/06/2024. However, image (CT or MRI) was not obtained at the end of 6 weeks of antibiotics to confirm resolution of the abscesses. Chronic right heel wound with chronic osteomyelitis. T2DM c/b blindness. ?Sickle cell disease: Recommend Hematology consult. ESRD on hemodialysis TTS via R IJ Permcath. There is no dressing in place on Permacath exit site (patient states that she had itching on some types of dressing. Please discuss with nephrology for alternative dressing to keep the exit site dry and clean. Plan and recommendation: - Continue IV vancomycin and IV cefepime for now - Follow final blood culture at OSH - Follow final fluid culture from 05/24/2024 left shoulder aspiration - Obtain MRI Left Shoulder to characterize the change as part of the etiology work up. - Rheumatology consult for inflammatory related arthropathy work up. - Follow up further plan from orthopedic surgery. - Needs dressing placement for R IJ Permcath. Please discuss with nephrology for alternative types of dressing. - Recommend Hematology consult for diagnosis of ?Sickle cell disease. - Continue wound care for right heel wound. Thank you for allowing us to participate in the care of this patient. Infectious Diseases will continue to follow along, please call with questions or concerns. Chloe Carlson MD Infectious Diseases Attending * Graeme Salmon RN - 05/25/2024 12:16 PM CDT 05/25/24 1156 Post Hemodialysis Patient Response to Treatment TOlerated well Post Dialysis Patient Status Treatment Completed Ultrafiltration Amount (ml) 3000 Dialyzer Clearance Lightly streaked Amount of blood processed (Liters) 73.8 Post Hemodialysis Comment UF goal met, VSS TX Charge entered in Charge Capture Yes * Khloe Lowery - 05/25/2024 10:53 AM CDT I am aware of this patient's admission, I will be following this dialysis patient for any needs while an inpatient, and keeping their clinic informed of their progress while admitted. Records were forwarded to the clinic for their review. Spoke with Gardenia at [facility] who was able to confirm patient's OP HD schedule. Meet with patient in dialysis suite and patient voiced no concerns withclinic. Documented acknowledgement of choice: Yes, verbal consent given per patient request Outpatient Clinic [facility] Days: TTS Time: 11:30am Doctor: Dr Millan Khloe Lowery [facility]ney Navigator[facility] Ascom: [phone] Office: [phone] * Graeme Salmon RN - 05/25/2024 9:34 AM CDT Problem: Hemodynamic Status/Cardiac Output Goal: Patient has stable vital signs and fluid balance Outcome: Progressing Problem: Fluid and Electrolyte Imbalance Goal: Fluid and electrolyte balance are achieved/maintained Outcome: Progressing Problem: Infection Goal: Signs and symptoms of infections are decreased or avoided Outcome: Progressing * Graeme Salmon RN - 05/25/2024 6:38 AM CDT REPORT BEFORE DIALYSIS Diagnosis (BOBBY/CKF):CKF Non-Renal Diagnosis:Osteomyelitis of left shoulder, unspecified type (HCC) Isolation:No active isolations Does patient have signs or symptoms of respiratory infection (fever, cough, shortness of breath):no Allergies:No Known Allergies Code Status:Full Code Orientation Status:x4 On telemetry/Rhythm:no Oxygen:RA Given any medications:see mar Need for pain medications:dilaudid Blood pressure issues:no On any drips:no Is patient diabetic:yes Any labs to draw:no Any other procedures today:no Any concerns about this patient:no Any medications to be given with dialysis:see mar Due date of next Central Line Dressing change:na Primary RN educated on Incapacitated Nurse:yes * Charlie Sutherland MD - 05/25/2024 6:20 AM CDT Orthopaedic Trauma Surgery Daily Progress Note Name: Gay Canales Age: [age] year old Room: 534/01 Date Admitted: 05/23/2024 Interval History: Patient seen and examined on rounds this AM. No acute events overnight. No new numbness or tingling. Cell count with not concerning for septic arthritis. Doing well this am. Cx NGTD She denies recent fall. Labs CBC Recent Labs Component Name 05/24/24 0548 03/02/24 0338 03/01/24 0310 WBC 8.9 14.0* 14.1* HGB 9.9* 8.8* 9.0* HCT 32.7* 29.2* 28.7* PLTCOUNT 402 595* 541* BMP Recent Labs Component Name 05/24/24 0625 03/02/24 0338 03/01/24 0310 02/29/24 0127 NA 139 137 135* 135* POTASSIUM 4.2 5.5* 4.9* 4.4 CL 104 102 106 104 CO2 26 25 21* 24 BUN 33* 39* 28* 16 CREATININE 3.64* 7.43* 5.80* 3.73* GLUCOSE 240* 92 112 141* CALCIUM 8.5 8.8 8.8 8.3* MAGNESIUM - 2.4 2.1 2.0 PHOS - 7.3* 6.1* 4.1 Coags Recent Labs Component Name 02/22/24 2214 04/26/23 0629 PT 14.6 16.3* INR 1.2 1.3 PTT - 29.8 Vitamin D Recent Labs Component Name 02/25/24 0110 [id number] 12.3* Vitals BP 142/63 (BP Location: Right arm, Patient Position: Lying) Pulse 82 Temp 98.2 ??F (36.8 ??C) (Oral) Resp 18 Ht 1.829 m (6') Wt 93.4 kg (205 lb 14.6 oz) SpO2 97% Temp (24hrs), Av.3 ??F (36.8 ??C), Min:98.2 ??F (36.8 ??C), Max:98.5 ??F (36.9 ??C) Physical Exam General appearance: Alert, cooperative, and no apparent distress Left upper extremity: Fires motor R/M/U/AIN/PIN, Sensation intact in R/M/U nerve distributions distally, extremity warm and well perfused. Dressing is intact. Able to preform FF and abduction Assessment and Plan: Gay Canales is a 33 year old female status post: left shoulder pain Plan Weight bearing status: left upper extremity: WBAT Diet: OK Will follow culture. No plan for operative intervention at this time. [facility]ulers: [phone], option 1 Charlie Sutherland MD 05/25/2024 6:21 AM Associated attestation - Anabel Mercedes MD - 05/26/2024 7:11 AM CDT I have seen and examined the patient with the resident and I agree with the findings and plan of care as documented by the resident/PA. Date of Service: 05/25/24 Anabel Mercedes MD * Joy Stein RN - 05/24/2024 9:55 PM CDT Problem: Pain/Discomfort Goal: Patient exhibits [...] in the flowsheet documentation) Outcome: Progressing Problem: Tissue injury due to various disease processes Goal: Provide optimal wound healing environment Outcome: Progressing Problem: Tissue Injury due to Inadequate Arterial Perfusion Goal: Maintain Clean/Stable wound environment Outcome: Progressing Problem: Tissue Injury due to Venous Hypertension Goal: Maintain Infection Free Stable Wound Environment Outcome: Progressing Problem: Tissue Injury Due to Loss of Protective Sensation Goal: Protect Injured Tissue and Prevent Further Injury Outcome: Progressing Problem: Tissue Injury Due to External Forces of Pressure, Friction, and Shear Goal: Protect Skin from External Forces Outcome: Progressing Goal: Maintain and Improve Tissue Tolerance to Pressure Outcome: Progressing Problem: Nutrient: Increased nutrient needs (specify) Goal: Total intake will meet estimated nutrient needs Outcome: Progressing Problem: Skin Integrity Goal: Skin integrity is maintained or improved Outcome: Progressing * Noe Rabago MD - 05/24/2024 12:45 PM CDT Internal Medicine Hospital Progress Note Name: Gay Valencia Canales Room/Bed: [facility] : 1990 33 year old Admit Date/Time: 05/23/2024 8:00 PM PCP: CHERISE MARCELO PA-C CSN: [id number] Attending Physician: Noe Rabago MD Subjective Patient transferred to [facility] overnight from OSH. Seen and examined at bedside, resting comfortably inbed and denies fevers, chills, diarrhea. Denies significant pain. Patient reports starting with L shoulder pain in February when she was admitted with MRSA bacteremia and left pectoralis abscess. Per chart review patient underwent arthrocentesis of RIGHT shoulder for complaints of pain and synovial fluid analysis was not concerning for septic arthritis. Unclear if left shoulder was evaluated at that time. Patient was discharged with instructions to continue IV vancomycin through 04/07/2024 (unclear if patient did receive abx after discharge). Objective Recent Vitals: Temp: [98 ??F (36.7 ??C)-98.3 ??F (36.8 ??C)] 98.3 ??F (36.8 ??C) Pulse: [83-88] 88 Resp: [16] 16 BP: (129-137)/(83-86) 135/85 Weight change: Physical Exam: General: A&Ox3, NAD, pleasant and cooperative HEENT: NC/AT, EOMI, MMM Neck: supple, JVD not appreciable Heart: Regular S1 & S2, systolic murmur over left parasternum Lungs: CTABL, no crackles, no wheezes Abdomen: BS+, S/NT/ND without rebound tenderness MSK: No significant erythema, fluctuance, warmth over B/L shoulders, mild tenderness to deep palpation over L shoulder, preserved ROM Extremities: No edema observed, R heel with clean dressing, L BKA Neurologic: No focal deficits observed Integument: Warm, dry Scheduled Medications: 0.9% NaCl 3 mL Intracatheter q8h amLODIPine 10 mg Oral QDAY carvedilol 12.5 mg Oral BID WC cefepime 1 g Intravenous q24h ferrous sulfate 325 mg Oral QDAY WITH BREAKFAST furosemide 40 mg Oral MON, WED AND FRI gabapentin 100 mg Oral TID heparin 5,000 Units Subcutaneous BID insulin aspart 0-6 Units Subcutaneous q6h lisinopril 20 mg Oral QDAY renal vitamin 1 tablet Oral QDAY sennosides 8.6 mg Oral QDAY sevelamer carbonate 800 mg Oral TID WC [START ON 05/25/2024] vancomycin 1,000 mg Intravenous Once vancomycin (VANCOCIN) IV dose per pharmacy Does not apply DIRECTED Continuous Infusions: Relevant labs and imaging data reviewed on Epic. Assessment and Plan Gay Canales is a 33 year old female with a past medical history significant for T2DM, HTN, HFpEF, chronic right heel ulcer/osteomyelitis, prior L BKA, ESRD on HD TTS, possible sickle cell disease,who was admitted on 05/23/2024 as an OSH transfer for evaluation of left shoulder septic bursitis/osteomyelitis. Left shoulder septic bursitis and osteomyelitis Septic bursitis and osteomyelitis of the left shoulder on CT scan with purulent fluid aspirated by orthopedics on 05/21. Synovial fluid studies not completely consistent with septic joint (nucleated cells reportedly 21K). OSH contacted for update on culture results. - Continue on IV vancomycin pharmacy to dose - Continue on IV cefepime 1 g q24hr ( Renal dosing) - ID, orthopedic surgery consulted, appreciate recs - Contacted medical floor at OSH ([phone]), synovial cx with NGTD, protein/glucose pending - Pain control ordered - Daily CBC 2. Chronic right heel ulcer Deep ulcer noted on the right heel but no surrounding erythema or signs of infection. Patient reports history of osteomyelitis treated with 6 weeks of IV antibiotics in 2022 - Amputation has been discussed in the past but patient refused - Plan to continue wound care, hold off on imaging for now - Will image the right heel if it starts to worsen or show signs of infection 3. End-stage renal disease on hemodialysis Patient is on a Friday, , Friday hemodialysis schedule. Last session was on Friday - Nephrology consulted to continue dialysis during admission - ID recommend dressing for catheter site as it may be a nidus for infection - Continue phos binder, renal vitamins 4. Possible sickle cell disease - Patient had a positive sickle cell screen but no definitive diagnosis or follow-up - Hematology follow up outpatient. 5. Type 2 Diabetes Mellitus with peripheral neuropathy - Continue on sliding scale insulin for now, monitor glucose for titration - Glucose checks AC+HS, PRN - Hypoglycemia protocol - Gabapentin 100 mg TID 6. Chronic HFpEF - Monitor fluid status - On HD - Daily weights 7. Hx of GI Bleed due to Hemorrhoids 04/2023->Endoscopy and sigmoidoscopy, sigmoidoscopy reported nonbleeding internal hemorrhage which likely the cause of the rectal bleeding, upper endoscopy showed normal esophagus and gastritis 8. Hypertension - Continue Norvasc 10 mg daily, Coreg 12.5 mg BID, lisinopril 20 mg daily 9. Iron deficiency anemia - Hold iron supplementation in the setting of possible acute infection, transfuse for Hg < 7g/dL Body mass index is 27.9 kg/m??. Patient will follow up with PCP for further management as indicatedunless otherwise specifically noted above. Consultants: Infectious Disease and Orthopedics Therapies: Wound Care Code Status: Full Code Dispo: Continue inpatient treatment, follow up on synovial fluid cx, ortho/ID recs F - (luids & feeds): DIET CONSISTENT CARB A - (nalgesia): Tylenol, Gabapentin, Driver, and Dilaudid S - (edation): None T - (hrombo ppx): Heparin 5000U BID H - (emodynamics): Stable U - (lcer ppx): None G - (lycemia protocol): Hypoglycemia protocol S - (upplemental O2): Sating well on RA B - (owel regimen): Miralax I - (ndwelling catheter removal): continue with HD cath D - (eescalation of abx): continue vancomycin/cefepime, f/u culture data Electronically Signed By: Noe Rabago MD [facility] 05/24/2024 12:45 PM * Gudelia Ko, PharmD - 05/24/2024 8:55 AM CDT ACTIVE CONSULTS TO PHARMACY/DISEASE STATE [...] patient populations. REF: https://www.idsociety.org/practice-guideline/vancomycin/ ASSESSMENT/PLAN Indication: documented Bone/joint of chronic R heel ulcer/osteo and L shoulder with Goal Level: trough 15-20 mcg/ml Assessment Microbiology: Recent Labs Component Name 02/22/24 2369 MRSADPCR Detected* History/current positive cultures for MRSA: Yes, OSH bcx MRSA 02/16/2024 Other pertinent micro: Yes 05/17/23 MRSE bcx 02/22/24 bcx negative 02/25/24 abscess negative H&P note 05/23: bcx obtained at OSH on 05/15 and are negative (cultures not able found in care everywhere or labs. 05/21 shoulder was aspirated and no culture results were noted in patient transfer Renal: Recent Labs Component Name 05/24/24 0625 03/02/24 0338 03/01/24 0310 02/29/24 0127 CREATININE 3.64* 7.43* 5.80* 3.73* BUN 33* 39* 28* 16 Considered stable at this time as patient is on intermittent hemodialysis (iHD) with last session 05/22 and next planned 05/25. iHD is on TTa schedule Historical dosing data that influences current dosing decisions: Yes, patient has been on vanc at OSH since 05/15 and receiving 1g post iHD. Last iHD was 05/22 and vanc random was 20.5 on 05/24 0548 Previous inpatient vanco history Started at OSH on 02/15 02/22: VR 21.5 - 1000 mg 02/25: VR 14.5 - 1500 mg 02/28: VR 14.9 - 1000 mg Plan Regimen: Loading dose: no loading dose. Maintenance dose: 1000 mg, Dosing interval: Dosing post iHD sessions, starting 05/25 Unable to accurately predict trough/AUC at this time until after 1st dose calculations completed. Monitoring Will order a vancomycin random level prior to iHD session on 05/27 at 0400 and adjust regimen if indicated. Continue to monitor patient???s renal function and cultures as needed. Gudelia Ko, PharmD 05/24/2024 8:[address] [facility] Vancomycin Guideline SUBJECTIVE/OBJECTIVE Gay Canales is a 33 year old female Height: 6' 0.05 (183 cm) Wt 93.4 kg (206 lb) Body mass index is 27.9 kg/m??. Dialysis Orders (72h ago, onward) None Vancomycin Administrations from JAN (last 72 hours) None Recent Labs Component Name 05/24/24 0548 03/02/24 0338 02/29/24 0127 02/23/24 0737 05/21/23 0450 05/20/23 0918 05/18/23 0617 05/09/23 0357 05/08/23 0841 04/29/23 0338 04/28/23 0319 04/27/232018 VANCORNDM 20.5 29.0 14.9 - - - - - - - - - VANCTROUGH - - - - 15.5 - - 19.5 - - 34.6* - VANCOPEAK - - - - - 20.1* - - 26.1 - - 46.6* - = values in this interval not displayed. * Briana Ritchie RN - 05/23/2024 6:19 PM CDT Received report from JIMMIE Johnson at OSH. Pt awaiting ambulance at OSH. * Celina Lucia MD - 05/16/2024 7:27 AM CDT Received a call from the outside hospital regarding transfer of this patient due to osteomyelitis of left shoulder. Of note, patient was recently admitted here for osteomyelitis of left shoulder requiring prolonged IV antibiotics. Per the transferring clinician, patient is hemodynamically stable. Patient was accepted under Flex team and currently in the waiting list. I advised the transferrin clinician to keep us up-to-date if there is any clinical status change totransfer patient to the ICU. documented in this encounter H&P Notes * Deyvi Antoine MD - 05/23/2024 10:21 PM CDT Images from the original note were not included. HISTORY AND PHYSICAL Date of Admission: 05/23/2024 8:00 PM Date of Service: 05/23/2024 Patient's Primary Care Physician: CHERISE MARCELO PA-C Name: Gay Canales Age: [age] year old Sex: female CHIEF COMPLAINT Left Shoulder osteomyelitis History of Present Illness 33-year-old female with a PMH of blindness, T2DM, HTN, chronic HFpEF, chronic right heel ulcer/osteomyelitis(tx only with IV abx) , prior left BKA, ESRD on HD (//Fri) and possible sickle cell disease who was transferred from an outside hospital for left shoulder septic bursitis/osteomyelitis. Patient stated her shoulder pain has been ongoing since February 2024 and was initially thought to be due to sickle cell disease which was not diagnosed at that time subsequently she sickle cell screen was positive.She was noted to have possible joint infection at that time as well. She said in early February she had a left axillary abscess which was I&D and treated with short course of oral abx. Now due to progressively worsening left shoulder pain and swelling she presented to ER at OSH on 05/15. Imaging on this admission included left shoulder xray which had not show any acute abnormality.CT left shoulder showed a large complex left subacromial/subdeltoid and subcoracoid bursal fluid collection associated with osteolysis at the coracoid process and under surface of the acromion consistent with septic bursitis and osteomyelitis. Patient was started on IV vancomycin and cefepime. Blood culture were obtain which per records does not appear to have grown any organism. Orthopedic surgery was consulted on 05/21/2024 who aspirated 145 cc of purulent and serosanguineous fluid from the left shoulder. No culture results was noted in transfer documentation. Unclear of results. Patient was transferred to [facility] for further care. During hospitalization patient was also seen by nephrology and continued on HD. Last session noted to be on 05/22. In regards to patient right plantar foot ulcer which had shown osteomyelitis in the past. She stated she had refuse amputation and opted for 6 weeks of IV abx which was completed. Has not noted any increase in drainage/discharge. No surrounding erythema. Past Medical History: Diagnosis Date ??? Essential (primary) hypertension ??? Heart failure (HCC) ??? Type 2 diabetes mellitus without complications (HCC) Past Surgical History: Procedure Laterality Date ??? LEG AMPUTATION ABOVE KNEE Left 12/05/2022 Left; AMPUTATION ABOVE LEFT KNEE ??? Leg Amputation, Below Knee Left 12/02/2022 Left; LEFT ANKLE DISARTICULATION LEVEL 2 @ 2220 Medications Prior to Admission Medication Sig Dispense Refill ??? acetaminophen (Tylenol) 500 MG tablet Take 1 (one) tablet by mouth every 4 hours Maximum allowable Acetaminophen amount = 4 Grams (4000 mg) / 24 hours. (Patient not taking: Reported on 05/23/2024) ??? Alcohol Swabs (Alcohol Prep) 70 % USE ONE SWAB TO CLEAN SKIN FOUR TIMES DAILY BEFORE TESTING 100 Each PRN ??? amLODIPine (Norvasc) 10 MG tablet Take 1 (one) tablet by mouth once daily ??? bisacodyl (Dulcolax) 10 MG suppository Insert 1 (one) suppository into the rectum once daily asneeded for Constipation (Patient not taking: Reported on 05/23/2024) ??? blood glucose (MONOCOuch Verio) test strip USE ONE STRIP TO TEST BLOOD SUGAR FOUR TIMES DAILY 100 strip PRN ??? Blood Glucose Monitoring Suppl (NaldoTouch Verio Reflect) w/Device KIT Use 1 kit 4 times daily USE METER TO CHECK BLOOD GLUCOSE FOUR TIMES DAILY Reasons: CALL [facility] WHEN DELIVERING [id number] 1 kit 0 ??? carvedilol (Coreg) 12.5 MG tablet Take 1 (one) tablet by mouth 2 times daily with morning and evening meal ??? FeroSul 325 (65 Fe) MG tablet Take 1 (one) tablet by mouth daily with breakfast ? ? furosemide (Lasix) 40 MG tablet Take 1 (one) tablet by mouth every Friday, Friday & Friday 0 ??? gabapentin (Neurontin) 100 MG capsule Take 1 (one) capsule by mouth 3 times daily ??? insulin lispro (HumaLOG;ADMelog) 100 UNIT/ML pen Inject 0 (zero) Units to 6 (six) Units subcutaneously 3 times daily with meals ??? Lancets (DogsterTOUCH DELICA PLUS 33G EXTRA FINE LANCET) USE ONE LANCET TO PRICK FINGER FOUR TIMES DAILY FOR BLOOD GLUCOSE TESTING 100 Each PRN ??? lisinopril (Prinivil; Zestril) 20 MG tablet Take 1 (one) tablet by mouth once daily ??? melatonin 3 MG tablet Take 1 (one) tablet by mouth nightly as needed for Insomnia ??? nystatin (Mycostatin) 560658 UNIT/GM powder Apply to affected area 3 times daily ??? polyethylene glycol 3350 (Miralax) 17 g packet Take 17 (seventeen) g by mouth once daily (Patient not taking: Reported on 05/23/2024) ??? renal vitamin (Dialyvite) tablet Take 1 (one) tablet by mouth once daily ??? senna (Senokot) 8.6 MG tablet Take 1 (one) tablet by mouth once daily ??? sevelamer carbonate (Renvela) 800 MG Take 1 (one) tablet by mouth 3 times daily with meals No Known Allergies Social History Tobacco Use ??? Smoking status: Former Types: Cigarettes Start date: 2010 ??? Smokeless tobacco: Never ??? Tobacco comments: Quit 4-5 months after starting Substance Use Topics ??? Alcohol use: Not Currently Comment: Occassionally Family History Problem Relation Name Age of Onset ??? Diabetes - Type 2 Mother ??? Hypertension Mother ??? Diabetes - Type 2 Father ??? Hypertension Father ??? Diabetes - Type 2 Paternal Grandmother ??? Hypertension Paternal Grandmother REVIEW OF SYSTEMS A comprehensive 14 point review of systems was negative except as described in HPI. EXAM Vitals : Stable General appearance: alert, cooperative, no distress ENT/NECK : NAD Lungs: breath sounds normal and symmetric; no rales or wheezes Heart: regular rhythm, normal S1 and S2, without murmurs, gallops or rubs Abdomen: soft without mass, non-tender, with normal bowel sounds Musculoskeletal : S/P Left BKA Neurologic: mental status normal; alert and oriented X 3; Psychologic: calm - Left shoulder examination: Mildly edematous, no redness, slightly warm to touch, painful with movement, able to lift the arm with pain, - Chronic right heel ulcer: Deep ulcer noted, surrounding skin is not erythematous or infected appearing DATA LABS: Recent Labs Component Name 03/02/24 0338 02/23/24 0737 02/22/24 2214 WBC 14.0* - 18.0* HGB 8.8* - 9.6* HCT 29.2* - 30.5* NA 137 - 136 CL 102 - 100 BUN 39* - 21 CREATININE 7.43* - 4.88* PHOS 7.3* - 5.0 CALCIUM 8.8 - 8.8 PT - - 14.6 INR - - 1.2 AST - - 7 ALT - - 11 ALKPHOS - - 221* TBILI - - 0.2 - = values in this interval not displayed. RADIOLOGY: No results found. ASSESSMENT AND PLAN All Diagnosis Present on Admission Unless Otherwise Stated: Osteomyelitis of left shoulder, unspecified type (HCC) (POA: Unknown) Assessment: 1.Left shoulder septic bursitis and osteomyelitis - Septic bursitis and osteomyelitis of the left shoulder confirmed on CT scan with purulent fluid aspirated by orthopedics on 05/21. Will need to contact OSH and obtain update on culture results. - Continue on IV vancomycin pharmacy to dose - Continue on IV cefepime 1 g q24hr ( Renal dosing) - Will likely need to have infectious disease consult. - Pain control ordered - CBC/CMP/ESR/CRP ordered on arrival 2. Chronic right heel ulcer - Deep ulcer noted on the right heel but no surrounding erythema or signs of infection - Patient reports history of osteomyelitis treated with 6 weeks of IV antibiotics in 2022 - Amputation has been discussed in the past but patient refused - Plan to continue wound care, hold off on imaging for now - Will image the right heel if it starts to worsen or show signs of infection 3. End-stage renal disease on hemodialysis - Patient is on a Friday, , Friday hemodialysis schedule - Last session was on Friday - Consult nephrology to continue dialysis during admission 4. Possible sickle cell disease - Patient had a positive sickle cell screen but no definitive diagnosis or follow-up - Hematology follow up outpatient. 5. Type 2 Diabetes Mellitus - Sliding scale insulin - Q6hr glucose monitoring while NPO 6. Chronic HFpEF - Monitor fluid status - On HD - Daily weights 7. Hx of GI Bleed due to Hemorrhoids - 04/2023->Endoscopy and sigmoidoscopy, sigmoidoscopy reported nonbleeding internal hemorrhage which likely the cause of the rectal bleeding, upper endoscopy showed normal esophagus and gastritis 8. Hypertension - Review home meds and resume Daily Checklist VTE PPX [] SCD [x] SQ Heparin [] SQ Lovenox [] Therapeutic Anticoagulation Nutrition NPO LDA PIV Activity Up with Assist- OOBTC 3x daily Consults None Disposition Inpatient Code Status Code Status: Full Code ESTIMATED LENGTH OF STAY: Anticipate > 2 midnight stay in hospital for eval and treatment Over 70 mins spent with admission process. Voice recognition software Hello[employer] Direct was used dictate and transcribe this document. [employer] variances may occur. Despite proofreading, typographical errors may occur. Elina Carnes MD 05/23/2024 10:21 PM documented in this encounter Procedure Notes * Michael Holt MD - 06/03/2024 4:18 PM CDTProcedure(s): HEMODIALYSIS INPATIENT NEPHROLOGY PROCEDURE NOTE Procedure: Hemodialysis Indication: ESRD I saw and evaluated the patient during hemodialysis session today at 10:05 AM. Mrs. Canales was seen 1 hour into her treatment, reported nausea and abdominal discomfort. Patient reported history of abdominal discomfort during dialysis in the past for which she takes Zofran priorto treatments. Treatment was paused Zofran was given. Treatment was resumed and patient tolerated the rest of the treatment well. Blood pressure was stable 137/87 mmHg Treatment today: 3 hour 30 minute treatment Blood flow 350 ml/min via tunneled catheter Dialysate flow 700 ml/min Dialysis bath: 140 Na, 2 K, 2.5 Ca, 37 bicarb. Net UF 2000 ml Michael Holt MD 06/03/2024 * Michael Holt MD - 06/01/2024 6:22 PM CDTProcedure(s): HEMODIALYSIS INPATIENT NEPHROLOGY PROCEDURE NOTE Procedure: Hemodialysis Indication: ESRD I saw and evaluated the patient during hemodialysis session today. Mrs. Canales tolerated treatment well, denied having any pain or discomfort during the treatment. Treatment today: 3 hour Blood flow 300 ml/min via tunneled catheter Dialysate flow 700 ml/min Dialysis bath: 140 Na, 3 K,2.5 Ca, 37 bicarb. Net UF 3000 ml Michael Holt MD 06/01/2024 06/01/2024 6:29 PM * Tao Stein MD - 05/27/2024 3:47 PM CDTProcedure(s): HEMODIALYSIS INPATIENT NEPHROLOGY PROCEDURE NOTE Procedure: Hemodialysis Indication: ESRD I saw and evaluated the patient during hemodialysis session today. Ms Canales complains of persistent pain in her left shoulder. Treatment today: 3 hour 18 minut treatment Blood flow 350 ml/min via tunneled catheter Dialysate flow 700 ml/min Dialysis bath: 140 Na, 2 K, 2.5 Ca, 37 bicarb. Net UF 2600 ml Tao Stein MD 05/27/2024 3:47 PM * Tao Stein MD - 05/25/2024 7:41 PM CDTProcedure(s): HEMODIALYSIS INPATIENT NEPHROLOGY PROCEDURE NOTE Procedure: Hemodialysis Indication: ESRD I saw and evaluated the patient during hemodialysis session today. 207 minute treatment Blood flow 350 ml/min Dialysate flow 700 ml/min Dialysis bath 140 Na, 2 K, 2.5 Ca, 37 bicarb Net UF 3 L Tolerated well, no complications. Tao Stein MD 05/25/2024 7:41 PM * Jimmy Johnston MD - 05/24/2024 1:40 PM CDT Orthopaedic Surgery Procedure Note Diagnosis: Left shoulder pain Procedure: Aspiration of the left shoulder. Indications: Gay Canales is a 33 year old female who has left shoulder pain and swelling. There is concern for septic joint. ESR is 114 and CRP is 1.4. Procedure Details: Aspiration of left shoulder joint. The patient was informed of her condition, and the need to work up possible septic joint. The patient was counseled as to the risks and benefits of the procedure. The patient was understanding and agreeable. The area was prepped with etoh and chlorhexidine and draped in the usual sterile fashion. The patient's left shoulder was entered with a 18 Ga needle and utilizing the posterior portal. Approximately 50cc of bloody and purulent fluid wasaspirated. The needle was removed and the needle site dressed with a semi-sterile bandage. The aspirate will be sent for gram stain, aerobic/anaerobic culture, cell count and crystal analysis. Remainder of plan per note. Jimmy Johnston MD 05/24/2024 1:41 PM documented in this encounter Consult Notes * Mariama Prakash MD - 05/26/2024 10:29 AM CDTAssociated Order(s): IP CONSULT TO HEMATOLOGY Images from the original note were not included. HEMATOLOGY/ONCOLOGY INPATIENT CONSULTATION NOTE Name: Gay Canales Age: [age] year old Date of : 1990 Date of Service: 05/15/2024 Requesting Provider / PCP: CHERISE MARCELO PA-C Hem/Onc Care Team: Dr. Mandel, Dr. Estela Whiteside DO; Dr. Pedro Luis Pérez MD; Dr. Mariama Moses MD Reason for Consult: Concern for possible Sickle Cell Disease/trait as a cause for Left Shoulder Pain due to suspected osteomyelitis/osteonecrosis HEMATOLOGY & ONCOLOGY HISTORY Principal Diagnosis: Concern for possible Sickle Cell Disease/trait as a cause for Left Shoulder Pain due to suspected osteomyelitis/osteonecrosis Current Therapy: IV vancomycin dose per pharmacy IV cefepime 1 g q24hr ( Renal dosing) Hydromorphone (Dilaudid) 0.5 mg IV injection q4h prn Oxycodone Q 6 H p.r.n. Prior Hematology History: -patient reportedly was told that her imaging done during last hospitalization in 02/24 was suggestive of sickle cell trait. There was no definitive diagnosis or any follow-up in this regard. -CT left shoulder (OSH) showed a large complex left subacromial/subdeltoid and subcoracoid bursal fluid collection associated with osteolysis at the coracoid process and under surface of the acromionconsistent with septic bursitis and osteomyelitis. -XR SHOULDER LEFT (05/24): - lucency of around 2.1 cm w/ well-defined margins on the undersurface of the acromion process - no definite associated bony destructive process. - No definite radiographic manifestations of osteomyelitis nor evidence of fracture nor dislocation. - Path Review Synovial Fluid (05/24) -Mixed inflammation ( neutrophils admixed with macrophages and occasional plasmacytoid lymphocytes) -Occasional erythrophagocytosis and leukophagocytosis -No readily identifiable microorganisms SUBJECTIVE History of Present Illness Chief Complaint: Left Shoulder Pain in the setting of possible Sickle Cell Disease/Trait History of Present Illness: Gay Canales is a 33 year old female with PMH of blindness, T2DM, HTN, chronic HFpEF, chronic right heel ulcer/osteomyelitis(tx only with IV abx) , prior left BKA (s/p necrotizing fasciiitis and red gangrene of left foot in 11/2022), ESRD on HD (//Fri) who was transferred from an OSH ([id number]) to [facility] ED on 05/23 for left shoulder septic bursitis/osteomyelitis. Hem/Onc consultation requested for concern for possible sickle cell disease or trait as a cause forosteomyelitis as she was told that her imaging was suggestive of sickle cell trait in February withouta definitive diagnosis or followup. See above for detailed hematology/oncology history. Imaging on this admission - left shoulder xray - no acute abnormality, CT left shoulder(OSH)- largecomplex left subacromial/subdeltoid and subcoracoid bursal fluid collection a/w osteolysis at the coracoid process and under surface of the acromion consistent with septic bursitis and osteomyelitis.Patient was started on IV vancomycin and cefepime. Blood cultures did not reveal any microbial growt h. No culture results was noted in transfer documentation. OSH contacted for update on culture results. Orthopedic surgery (05/21/2024) aspirated 145 cc of purulent and serosanguineous fluid from theleft shoulder- Synovial fluid studies not consistent with septic joint (nucleated cells at 21 K). ESR was 114 and CRP was 1.4. She was seen by ID and per ID, her shoulder pain could be from partiallytreated infection or re-infection source potentially from (1) chronic right heel wound; or (2) R IJPermcath related infection; or (3) non infection related inflammatory etiologies. On 05/24/2024, aspiration of the left shoulder with Ortho, 50 mL of bloody and purulent fluid (was on IV vancomycin and cefepime at OSH), fluid total nucleated cells only ~6500 (not typical infectious picture); Culture fluid+G.S revealed no growth on 05/24. Rheumatology ruled out any inflammatory etiology on 05/26. - She said in early February she had a left axillary abscess which was I&D and treated with short course of oral abx. She also endorsed MRSA bacteremia in February. Also had right plantar foot ulcer and osteomyelitis in 2022. She stated she had refused amputation and opted for 6 weeks of IV abx whichwas completed. -Today the patient states that her left shoulder pain started in February and got worse since May, constant throbbing pain, severity 10/10, better with Dilaudid, worse with movements, associated neck pain, radiation to arm. Denies stiffness, rash, tingling, numbness, weakness. Denies fevers, chills, IV drug use, URI, fatigue, unintentional weight loss, night sweats, trauma, rash, history of autoimmune disorder. Denies shortness of breath, chest pain, palpitations, fatigue, abdominal pain diarrheanausea vomiting or any other complaints. -Reports to having had blood transfusions twice in the last year but has never had any history of blood transfusions during childhood or adolescence. Denies having ever had acute pain crisis, acute chest syndrome, headache or weakness (suggestive of stroke ), or personal as well as family history of blood clots. -she lives in a facility. Does not walk much given her lower extremity amputation but was very independent prior to admission with activities of daily living such as walking, dressing herself, going to the bathroom. She requires some assistance currently to go to the bathroom given her shoulder pain. Stays in bed all day. Past Medical & Surgical History Patient Active Problem List Diagnosis ??? Osteomyelitis of left shoulder, unspecified type ([facility]) ??? Hypoalbuminemia ??? ESRD (end stage renal disease) ([facility]) ??? 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 Insomnia ??? Abscess of left shoulder ??? Leukocytosis ??? 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 Thrombophlebitis ??? Acute on chronic congestive heart failure, unspecified heart failure type ([facility]) ??? Swelling of right upper extremity ??? Anemia ??? 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 (HCC) ??? S/P AKA (above knee amputation) unilateral, left (HCC) ??? MRSA bacteremia ??? Left foot infection ??? Hypoxia ??? Essential hypertension ??? Swelling of left foot ??? Severe recurrent major 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 psychotic features (HCC) ??? PTSD (post-traumatic stress disorder) ??? CHF (congestive heart failure) (HCC) ??? Intentional overdose of drug in tablet form (HCC) ??? Type 2 diabetes mellitus with diabetic polyneuropathy (HCC) Past Medical History: Diagnosis Date ??? Essential (primary) hypertension ??? Heart failure (HCC) ??? Type 2 diabetes mellitus without complications (HCC) Past Surgical History: Procedure Laterality Date ??? LEG AMPUTATION ABOVE KNEE Left 12/05/2022 Left; AMPUTATION ABOVE LEFT KNEE ??? Leg Amputation, Below Knee Left 12/02/2022 Left; LEFT ANKLE DISARTICULATION LEVEL 2 @ 2220 Past Oncology History Oncology History No history exists. Social History Social History Tobacco Use ??? Smoking status: Former Types: Cigarettes Start date: 2010 ??? Smokeless tobacco: Never ??? Tobacco comments: Quit 4-5 months after starting Substance Use Topics ??? Alcohol use: Not Currently Comment: Occassionally Family History Relevant for Sickle cell disease or trait (patient unsure of the type) in her maternal cousin Family History Problem Relation Name Age of Onset ??? Diabetes - Type 2 Mother ??? Hypertension Mother ??? Diabetes - Type 2 Father ??? Hypertension Father ??? Diabetes - Type 2 Paternal Grandmother ??? Hypertension Paternal Grandmother Medications SCHEDULED MEDICATIONS: 0.9% NaCl injection 3 mL, Intracatheter, q8h amLODIPine (Norvasc) tablet 10 mg, Oral, QDAY carvedilol (Coreg) tablet 12.5 mg, Oral, BID WC furosemide (Lasix) tablet 40 mg, Oral, MON, WED AND FRI gabapentin (Neurontin) capsule 100 mg, Oral, TID heparin injection 5,000 Units, Subcutaneous, BID insulin aspart (NovoLOG) pen 0-12 Units, Subcutaneous, TID WC insulin glargine (Lantus) pen 6 Units, Subcutaneous, QDAY lisinopril (Prinivil; Zestril) tablet 20 mg, Oral, QDAY renal vitamin (Dialyvite) tablet 1 tablet, Oral, QDAY senna (Senokot) tablet 8.6 mg, Oral, QDAY sevelamer carbonate (Renvela) tablet 800 mg, Oral, TID WC vancomycin (Vancocin) IV dose per pharmacy, Does not apply, DIRECTED [COMPLETED] vancomycin (Vancocin) 1,000 mg in 0.9% NaCl IV 250 mL IVPB, Intravenous, Once [START ON 05/27/2024] cefepime (Maxipime) 2,000 mg in 0.9% NaCl IV 50 mL IVPB, Intravenous, TUES, THUR & SAT CONTINUOUS MEDICATIONS: PRN MEDICATIONS: Or Or Or Or 0.9% NaCl injection 1-10 mL, Intracatheter, PRN acetaminophen (Tylenol) tablet 650 mg, Oral, q6h PRN dextrose 10 % IV bolus, Intravenous, PRN dextrose 10 % IV bolus, Intravenous, PRN glucagon (Glucagen) injection 1 mg, Subcutaneous, PRN glucose (Diabetic Use) oral gel, Oral, PRN heparin injection 4,100 Units, Intracatheter, dialysis PRN HYDROmorphone (Dilaudid) injection 0.5 mg, Intravenous, q4h PRN ondansetron (disintegrating) (Zofran ODT) tablet 4 mg, Oral, q6h PRN ondansetron (Zofran) injection 4 mg, Intravenous, q6h PRN oxyCODONE (immediate release) (Roxicodone) tablet 10 mg, Oral, q6h PRN oxyCODONE (immediate release) (Roxicodone) tablet 5 mg, Oral, q6h PRN polyethylene glycol 3350 (Miralax) packet 17 g, Oral, QDAY PRN Allergies No Known Allergies OBJECTIVE Physical Exam Vitals: 05/26/24 0422 05/26/24 0739 05/26/24 1148 05/26/24 1531 BP: 148/87 156/83 152/90 148/92 Pulse: 79 81 81 82 Resp: 18 18 18 Temp: 98.3 ??F (36.8 ??C) 98.5 ??F (36.9 ??C) 98 ??F (36.7 ??C) SpO2: 92% 96% 95% 99% Weight: Height: Wt Readings from Last 3 Encounters: 05/24/24 93.4 kg (205 lb 14.6 oz) 02/26/24 98.9 kg (218 lb) 06/10/23 129.7 kg (286 lb) Physical exam: Pertinent for tenderness left hypochondrium to palpation, restricted active and passive range of motion in left shoulder due to pain. Motor strength was 4/5 in the left arm and left forearm General: NAD HEENT: Atraumatic normocephalic Neck: Supple, no JVD, LAD, thyromegaly HEART: RRR, S1,S2 +, no MRG Lungs: Pulmonary effort-normal, CTAB Abdomen: Tenderness in left hypochondrium to palpation, soft Extremities: No pedal edema Skin: No rash Neurological exam: Restriction in both active and passive range of motion in the left shoulder. Motor exam-strength 4/5 in the left arm and left forearm, 5/5 in right arm, right forearm, right lower limb. Sensation intact, no focal neurological deficits. Psychiatry: Mood and affect normal Behavior normal Laboratory Results Recent Labs Component Name 05/26/24 0602 05/25/24 0643 05/24/24 0548 03/02/24 0338 03/01/24 0310 02/23/24 0737 02/22/24 2214 06/10/23 1043 12/02/22 1955 08/22/22 0317 08/21/22 0846 0000 WBC 8.0 8.6 8.9 14.0* 14.1* - 18.0* 6.0 - 9.6 11.7* - RBC 3.47* 3.38* 3.36* 3.03* 3.02* - 3.23* 4.28 - 3.04* 3.25* - HGB 10.2* 9.9* 9.9* 8.8* 9.0* - 9.6* 11.9* - 8.1* 8.6* - HCT 33.8* 32.7* 32.7* 29.2* 28.7* - 30.5* 39.9 - 26.8* 28.6* - MCV 97.4 96.7 97.3 96.4 95.0 - 94.4 93.2 - 88.2 88.0 - MCHC 30.2* 30.3* 30.3* 30.1* 31.4* - 31.5* 29.8* - 30.2* 30.1* - PLTCOUNT 371 427* 402 595* 541* - 485* 434* - 571* 584* - NEUTPCT 56.2 60.2 - 61.4 - - - 48.6 - 61.7 69.5 - LYMPHPCT 27.7 23.2 - 19.6 - - - - - 24.8 21.2 - BASOPHILPCT - - - - - - - - - 0.2 0.3 - GRANSIMMPCT - - - - - - - - - 0.4 0.5 - NEUTABS - - - - 10.15* - 12.24* 2.91 - 5.91 8.13* - LYMPHABS 2.21 2.00 - 2.75 1.69 - 2.34 - - 2.37 2.48 - BASOABS 0.04 0.04 - 0.05 - - - - - 0.02 0.03 - - = values in this interval not displayed. Recent Labs Component Name 05/26/24 0602 05/25/24 0643 05/24/24 0625 03/02/24 0338 03/01/24 0310 02/29/24 0127 02/23/24 0737 02/22/24 2214 06/10/23 0939 12/02/22 1955 08/25/22 0315 08/24/22 1404 08/24/22 0725 08/22/22 0317 08/21/22 0847 SODIUM - - - - - - - - - - 142 143 138 - 146* POTASSIUM 4.4 5.1* 4.2 5.5* 4.9* 4.4 - 4.1 4.1 - 3.6 3.7 5.2* - 2.9* CHLORIDE - - - - - - - - - - 107 103 110* - 108* CO2 26 19* 26 25 21* 24 - 26 25 - 26 30 20* - 28 BUN 22 39* 33* 39* 28* 16 - 21 8 - 13 9 8 - 7 CREATININE 3.22* 4.06* 3.64* 7.43* 5.80* 3.73* - 4.88* 1.96* - 1.58* 1.43* 1.42* - 1.62* EGFR 19* 14* 16* 7* 9* 16* - 12* 35* - 45* 51* 51* - 44* GLUCOSE 104 224* 240* 92 112 141* - 261* 79 - 211* 145* 165* - 180* CALCIUM 8.5 8.6 8.5 8.8 8.8 8.3* - 8.8 8.3* - 7.9* 8.2* 7.8* - 8.2* MAGNESIUM - - - 2.4 2.1 2.0 - 2.2 - - - - 2.0 - 1.8 PHOS 4.8 4.7 - 7.3* 6.1* 4.1 - 5.0 - - 4.0 4.1 4.5 - - TPROT - - - - - - - - - - - - - - 5.5* ALBUMIN - - - - - - - - - - 2.0* 2.1* 1.7* - 2.2* ALT - - 25 - - - - 11 8 - - - - - 11 AST - - 14 - - - - 7 12 - - - - - 5 ALKPHOS - - 170* - - - - 221* 139 - - - - - 87 TBIL - - - - - - - - - - - - - - 0.3 - = values in this interval not displayed. Other relevant labs: Latest Reference Range & Units Most Recent Hemoglobin by [facility] 12.0 - 15.6 g/dL 9.1 (L) 05/17/23 22:06 Carboxyhemoglobin 0.0 - 2.0 % 2.9 (H) 05/17/23 22:06 Latest Reference Range & Units Most Recent pO2 Venous 35 - 40 mmHg 54 (H) 05/17/23 22:06 Latest Reference Range & Units Most Recent BE Venous -2.0 - 2.0 mmol/L 2.4 (H) 05/17/23 22:06 Latest Reference Range & Units Most Recent Ferritin 13 - 204 ng/mL 833 (H) 02/25/24 01:10 Latest Reference Range & Units Most Recent Iron 40 - 150 ug/dL 23 (L) 02/25/24 01:10 TIBC Calculated 240 - 450 ug/dL 149 (L) 02/25/24 01:10 Transferrin 174 - 382 mg/dL 119 (L) 02/25/24 01:10 Transferrin Saturation % 16 - 50 % 15 (L) 02/25/24 01:10 BNP <100 pg/mL 476 (H) 05/17/23 21:51 CK Total 30 - 200 U/L 1,624 (H) 04/27/23 07:29 Creatinine 0.56 - 0.96 mg/dL 3.22 (H) 05/26/24 06:02 eGFR >=90 mL/min/1.73 m2 19 (L) 05/26/24 06:02 Alkaline Phosphatase 40 - 150 U/L 170 (H) 05/24/24 06:25 Albumin 3.4 - 5.0 g/dL 2.0 (L) 05/26/24 06:02 Bilirubin Total 0.2 - 1.2 mg/dL 0.1 (L) 05/24/24 06:25 Albumin/Globulin Ratio 1.1 - 2.3 0.4 (L) 05/24/24 06:25 C-Reactive Protein <=0.5 mg/dL 1.4 (H) 05/24/24 06:25 Vitamin D, 25 Hydroxy 30.0 - 80.0 ng/mL 12.3 (L) 02/25/24 01:10 Hemoglobin A1c <=5.6 % 6.2 (H) 05/25/24 06:43 Hemoglobin A1c POCT 3.4 - 6.1 % 7.3 ! 04/24/10 09:52 Large Platelet Count None Occasional ! 12/02/22 19:55 RDW-SD 36.0 - 50.0 fL 67.6 (H) 06/10/23 10:43 RDW 11.2 - 14.8 % 19.9 (H) 06/10/23 10:43 RDW-CV 11.3 - 14.8 % 15.8 (H) 05/26/24 06:02 Eosinophils Absolute Manual 0.00 - 0.60 x10E9/L 1.13 (H) 03/01/24 03:10 Basophil Absolute Manual 0.00 - 0.13 x10E9/L 0.14 (H) 03/01/24 03:10 nRBC Manual 0 /100 WBC 1 (H) 12/07/22 05:33 Anisocytosis None 1+ ! 05/19/23 06:38 Hypochromia None Few ! 05/19/23 06:38 Macrocytosis None Occasional ! 05/17/23 21:51 Microcytes None Occasional ! 05/17/23 21:51 Poikilocytes None 1+ ! 12/06/22 04:01 Polychromasia (none) MODERATE ! 02/22/24 22:14 Basophilic Stippling None Occasional ! 12/06/22 04:01 Carli Cells None 1+ ! 05/17/23 21:51 Ovalocytes None Few ! 12/05/22 10:06 Schistocytes (none) FEW ! 02/22/24 22:14 Target Cells None Occasional ! 05/17/23 21:51 Large Platelets (none) PRESENT ! 02/22/24 22:14 Erythrocyte Sedimentation Rate Westergren 0 - 20 MM/HR 114 (H) 05/24/24 05:48 Total Nucleated Cells Fluid <=200 x10E6/L 6,498 (H) 05/24/24 15:05 MRSA DNA by PCR Not detected Detected ! 02/22/24 23:59 Hepatitis B Virus Surface Antibody Non-reactive Reactive ! 02/24/24 01:30 (L): Data is abnormally low (H): Data is abnormally high !: Data is abnormal Pathology Results Personally reviewed and summarized above in Hematology & Oncology History Path Review Synovial Fluid (05/24) Pertinent findings, synovial fluid cytospin preparation: -Mixed inflammation (comprised predominantly of neutrophils admixed with significant numbers of macrophages and occasional plasmacytoid lymphocytes) -At least some degree of peripheral blood contamination is likely, given abundant background RBCs -Occasional erythrophagocytosis and leukophagocytosis -No readily identifiable microorganisms -No clinically significant crystals upon examination under polarized light Radiology Results Personally reviewed and summarized above in Hematology & Oncology History XR SHOULDER LEFT (05/24): IMPRESSION: Suggestion of a lucency projecting approximately [...] osteomyelitis nor evidence of fracture nor dislocation. ASSESSMENT Gay Canales is a 33 year old female with PMH of blindness, T2DM, HTN, chronic HFpEF, chronic right heel ulcer/osteomyelitis(tx only with IV abx) , prior left BKA (s/p necrotizing fasciiitis and red gangrene of left foot in 11/2022), ESRD on HD (//Fri) presenting with Left Shoulder Pain. Hem/Onc consultation requested for evaluation and recommendations due to concern for Sickle Cell Trait. - patient presented on 05/23 for left shoulder pain. Imaging revealed a 2.1 cm lucency on the undersurface of acromion process. Patient reported that during her previous hospitalization in February at [facility], she was told that her imaging was suggestive of sickle cell trait. -on today's evaluation, patient denied having received multiple blood transfusions or any history of vasoocclusive pain crisis or acute chest syndrome or stroke. She has a family history of sickle cell disease in 1 of her maternal cousins. Physical exam was relevant for abdominal tenderness in the left hypochondrium. -we discussed with the patient about the differences between sickle cell disease and sickle cell trait. Patient expressed understanding that sickle cell trait does not affect her quality of life and that sickle cell disease is associated with major complications like stroke, acute chest syndrome, vaso-occlusive pain crisis, and infections. -also offered genetic counseling to the patient regarding the risk of transmitting sickle cell disease and sickle cell trait to her children if she plans to have them in future. Advised the patient to have her partner get the genetic testing when she plans to identify the risk of transmitting sickle cell disease or sickle cell trait to her children. -discussed with the patient that we would do a test called hemoglobin electrophoresis to identify if she has any sickle cell trait or sickle cell disease. Based on the results, if she happens to havesickle cell trait, she would not require to follow up and that it would not affect her quality of life. However if she has sickle cell disease, she would require outpatient follow-up at the Sickle cell Clinic at [facility]. patient expressed understanding of the plan. The patient does not need to remain inpatient from oncologic perspective. RECOMMENDATIONS -ordered hemoglobin electrophoresis. -based on the results of hemoglobin electrophoresis, if the patient has sickle cell trait, she would not require any treatment or follow-up. -if the patient is positive for sickle cell disease on hemoglobin electrophoresis, she will requireto follow up as an outpatient at the Sickle cell Clinic at [facility] if she is amenable for it. -the patient does not need to remain inpatient from an oncologic perspective. Thank you for the opportunity to participate in the care of this patient. Hem/Onc consult service will continue to follow. Please don't hesitate to contact hem/onc consult fellow via the proof operator or AMION if any questions or clarifications. -Mariama Prakash MD Internal Medicine Resident, PGY 1, [facility]. Associated attestation - Gricel Mandel MD - 05/27/2024 4:52 PM CDT HEMATOLOGY/ONCOLOGY ATTENDING PHYSICIAN ATTESTATION: Date of Service: 05/26/2024 Patient was seen and examined with the resident/fellow. I confirm their findings and agree with theplan of care as outlined. Hgb electrophoresis resulted and no evidence of sickle cell disease or sickle cell trait. No indication for hematology follow-up. Gricel Mandel MD Quartz Cutterunder baster, Division of Hematology/Oncology Associate Finance Intern, Hematology/Oncology Fellowship [facility] * Bernadine Ochoa MD - 05/26/2024 8:31 AM CDTAssociated Order(s): IP CONSULT TO RHEUMATOLOGY Rheumatology Inpatient Consultation Note Patient: Gay Canales ( , 1990, 33 year old female) Encounter Date: 05/15/2024 Consult requested by: Dr. Chin Primary service: Internal medicine Reason for Admission: L shoulder pain/septic arthritis Reason for Consultation: Evaluation of inflammatory arthritis Subjective History of Present Illness: 33-year-old female with a PMH of blindness, T2DM, HTN, chronic HFpEF, chronic right heel ulcer/osteomyelitis(tx only with IV abx), prior left BKA, ESRD on HD (//Fri) and possible sickle cell disease was transferred from [place] for left shoulder septic arthritis/osteomyelitis. She has been at [facility] facility for the past 7 months. Three weeks ago patient developed right anterior shoulder lump followed by tender on top of the shoulder joint 2 days later. She was unable to abduct left shoulder due to pain. Denies fever, previousjoint injury, joint pain in the past, preceding infections. She was taken to [place] (05/15) and 145 cc of purulent/serosanguineous fluid aspirated from the left shoulder. [facility] sub[facility]/subdeltoid bursitis/abscess with involvement of muscle and osteomyelitis. Orthopedics was consulted and they rated 5 cc at U which showed total nucleated cell 6498. Culture of synovial fluid is negative as per preliminary report. 02/22/2024 - 03/02/2024: In February 2024 patient developed whole-body pain on waking up and difficulty reaching phone. She developed severe right shoulder pain and was brought to the hospital where she was admitted with MRSA bacteremia and left pectoralis absence (underwent I and D and treated with short course of oral antibiotic). Per chart review patient underwent arthrocentesis of right shoulder for complaints of pain and synovial fluid analysis was negative for septic arthritis with total nucleated cells 4376 with noidentifiable microorganism. There was a thought about sickle cell disease which was not diagnosed at that time med as per notes sickle cell screen was positive later. 04/26/2023 - 05/09/2023: Admitted for diabetic R foot ulcer and treated with 6 weeks of IV Abx. She was offered R BKA but she declined and wanted to try Abx. 12/02/22 - 12/12/22: Admitted for necrotizing fasciitis, red gangrene of left foot, underwent left AKA. Review of Systems: Other systems reviewed and negative or noncontributory except as stated in the HPI. Home Medications: No current outpatient medications on file. Adverse Drug Reactions: No Known Allergies Past Medical History: Past Medical History: Diagnosis Date ??? Essential (primary) hypertension ??? Heart failure (HCC) ??? Type 2 diabetes mellitus without complications (HCC) Past Surgical History: Past Surgical History: Procedure Laterality Date ??? LEG AMPUTATION ABOVE KNEE Left 12/05/2022 Left; AMPUTATION ABOVE LEFT KNEE ??? Leg Amputation, Below Knee Left 12/02/2022 Left; LEFT ANKLE DISARTICULATION LEVEL 2 @ 2220 Immunization History: Immunization History Administered Date(s) Administered ??? DTP, HISTORIC VACCINE 1992, 02/16/1993, 06/01/1993, 05/08/1994 ??? HEP B VACCINE, PED/ADOL 06/01/1993, 07/27/1993, 03/06/1994 ??? Hib,HISTORIC VACCINE 1992, 02/16/1993, 06/01/1993, 01/04/1994 ??? Human Papilloma Virus Bivalent Vaccine 04/25/2008, 06/24/2008 ??? MENINGOCOCCAL, HISTORIC VACCINE 04/25/2008 ??? MMR, HISTORIC VACCINE 01/04/1994 ??? POLIO OPV 1992, 02/16/1993, 06/01/1993, 03/06/1994 ??? TDAP (7yrs+) 12/02/2022 ??? TDAP, HISTORIC VACCINE 08/14/2006 ??? VARICELLA 08/13/2007, 04/25/2008 Social History: Social History Socioeconomic History ??? Marital status: Single Tobacco Use ??? Smoking status: Former Types: Cigarettes Start date: 2010 ??? Smokeless tobacco: Never ??? Tobacco comments: Quit 4-5 months after starting Vaping Use ??? Vaping Use: Never used Substance and Sexual Activity ??? Alcohol use: Not Currently Comment: Occassionally ??? Drug use: Not Currently Types: Marijuana Comment: At age 20 for 4-5 months ??? Sexual activity: Not Currently Family History: Family History Problem Relation Name Age of Onset ??? Diabetes - Type 2 Mother ??? Hypertension Mother ??? Diabetes - Type 2 Father ??? Hypertension Father ??? Diabetes - Type 2 Paternal Grandmother ??? Hypertension Paternal Grandmother Patient Care Team: CHERISE MARCELO PA-C Patient Care Team: Cherise Marcelo PA-C as PCP - General Objective Physical Exam BP 148/92 (BP Location: Right arm, Patient Position: Lying) Pulse 82 Temp 98 ??F (36.7 ??C) (Oral) Resp 18 Ht 1.829 m (6') Wt 93.4 kg (205 lb 14.6 oz) LMP 08/08/2022 SpO2 99% BMI 27.93 kg/m?? GENERAL: NAD HEENT/NECK: White sclerae. Ext ears wnl. No oropharyngeal lesions. No palpable masses. CHEST/LUNGS: Normal work of breathing, CTAB. CARDIOVASCULAR: Regular rhythm, crisp S1/S2, no M/R/G. Ext WWP. No MAULIK. ABDOMEN: S/ND/NT. SKIN/NAILS: R lower extremity chronic ulcer PSYCH: Alert, appropriately interactive. NEURO: Sensation intact to soft touch. Normal muscle bulk and strength in trunk and limbs. MSK: Pain in the L shoulder on passive movement Labs: Reviewed, including those as noted below Results for orders placed or performed during the hospital encounter of 05/23/24 (from the past 2352 hour(s)) CBC W/O DIFFERENTIAL Result Value Ref Range WBC 8.9 4.0 - 10.7 x10E9/L RBC Count 3.36 (L) 3.90 - 5.20 x10E12/L Hemoglobin 9.9 (L) 11.9 - 15.8 g/dL Hematocrit 32.7 (L) 34.8 - 46.1 % MCV 97.3 80.0 - 98.0 fL MCH 29.5 26.7 - 33.6 pg MCHC 30.3 (L) 31.7 - 36.3 g/dL RDW-CV 15.4 (H) 11.3 - 14.8 % Platelet Count 402 150 - 420 x10E9/L MPV 9.4 7.8 - 11.4 fL NRBC 0.2 (H) <=0.0 /100 WBC ERYTHROCYTE SEDIMENTATION RATE Result Value Ref Range Erythrocyte Sedimentation Rate Westergren 114 (H) 0 - 20 MM/HR VANCOMYCIN LEVEL RANDOM Result Value Ref Range Vancomycin Random 20.5 Therapeutic Ranges not established for random specimens ug/mL GLUCOSE - POINT OF CARE Result Value Ref Range Glucose WB/POC 246 (H) 70 - 115 mg/dL Specimen Type Cap Fingerstick COMPREHENSIVE METABOLIC PANEL Result Value Ref Range BUN 33 (H) 7 - 26 mg/dL Creatinine 3.64 (H) 0.56 - 0.96 mg/dL Sodium 139 136 - 145 mmol/L Potassium 4.2 3.5 - 4.5 mmol/L Chloride 104 98 - 107 mmol/L CO2 26 22 - 29 mmol/L Glucose 240 (H) 70 - 115 mg/dL Calcium 8.5 8.4 - 10.2 mg/dL Protein Total 7.2 6.0 - 8.3 g/dL Albumin 1.9 (L) 3.4 - 5.0 g/dL Bilirubin Total 0.1 (L) 0.2 - 1.2 mg/dL Alkaline Phosphatase 170 (H) 40 - 150 U/L ALT 25 5 - 55 U/L AST 14 5 - 34 U/L Anion Gap 9 6 - 16 BUN/Creatinine Ratio 9 7 - 23 Osmolality Calculated 303 (H) 275 - 295 mOsm/kg Albumin/Globulin Ratio 0.4 (L) 1.1 - 2.3 eGFR by CKD-EPI 16 (L) >=90 mL/min/1.73 m2 C-REACTIVE PROTEIN Result Value Ref Range C-Reactive Protein 1.4 (H) <=0.5 mg/dL GLUCOSE - POINT OF CARE Result Value Ref Range Glucose WB/POC 247 (H) 70 - 115 mg/dL Specimen Type Arterial CELL COUNT W DIFFERENTIAL FLUID Specimen: Synovial Fluid Result Value Ref Range Fluid Source Synovial Fluid Appearance BLOODY Fluid Color RED Total Nucleated Cells Fluid 6,498 (H) <=200 x10E6/L RBC Count Fluid 610,000 Reference Range Not Established x10E6/L CRYSTAL INDENTIFICATION SYNOVIAL FLUID Specimen: Synovial Fluid Result Value Ref Range Crystal Exam Fluid To be performed by Pathology. See Path Review. PATHOLOGY SMEAR BODY FLUID Result Value Ref Range Path Review Fluid Confirmed DIFFERENTIAL MANUAL FLUID Specimen: Synovial Fluid Result Value Ref Range Fluid Source Synovial Body Fluid Total Cell Count 100 x10E6/L Neutrophils Fluid Percent 83 % Lymphocytes Fluid Percent 9 % Macrophages Fluid Percent 8 % PATHOLOGY SMEAR BODY FLUID Result Value Ref Range Path Review Fluid GLUCOSE - POINT OF CARE Result Value Ref Range Glucose WB/POC 259 (H) 70 - 115 mg/dL Specimen Type Cap Fingerstick GLUCOSE - POINT OF CARE Result Value Ref Range Glucose WB/POC 254 (H) 70 - 115 mg/dL Specimen Type Cap Fingerstick HEMOGLOBIN A1C Result Value Ref Range Hemoglobin A1c 6.2 (H) <=5.6 % Estimated Average Glucose 131 mg/dL RENAL FUNCTION PANEL Result Value Ref Range BUN 39 (H) 7 - 26 mg/dL Creatinine 4.06 (H) 0.56 - 0.96 mg/dL Sodium 139 136 - 145 mmol/L Potassium 5.1 (H) 3.5 - 4.5 mmol/L Chloride 106 98 - 107 mmol/L CO2 19 (L) 22 - 29 mmol/L Glucose 224 (H) 70 - 115 mg/dL Albumin 2.0 (L) 3.4 - 5.0 g/dL Calcium 8.6 8.4 - 10.2 mg/dL Phosphorus 4.7 2.9 - 5.1 mg/dL Anion Gap 14 6 - 16 BUN/Creatinine Ratio 10 7 - 23 Osmolality Calculated 304 (H) 275 - 295 mOsm/kg eGFR by CKD-EPI 14 (L) >=90 mL/min/1.73 m2 CBC W AUTO DIFFERENTIAL Result Value Ref Range WBC 8.6 4.0 - 10.7 x10E9/L RBC Count 3.38 (L) 3.90 - 5.20 x10E12/L Hemoglobin 9.9 (L) 11.9 - 15.8 g/dL Hematocrit 32.7 (L) 34.8 - 46.1 % MCV 96.7 80.0 - 98.0 fL MCH 29.3 26.7 - 33.6 pg MCHC 30.3 (L) 31.7 - 36.3 g/dL RDW-CV 15.6 (H) 11.3 - 14.8 % Platelet Count 427 (H) 150 - 420 x10E9/L MPV 9.5 7.8 - 11.4 fL Neutrophil % 60.2 41.0 - 74.0 % Lymphocyte % 23.2 17.0 - 47.0 % Monocyte % 7.3 3.0 - 11.0 % Eosinophil % 8.5 (H) 0.0 - 7.0 % Basophil % 0.5 0.0 - 1.6 % Immature Granulocytes % 0.3 0.0 - 1.0 % Neutrophil Absolute 5.18 1.60 - 7.50 x10E9/L Lymphocyte Absolute 2.00 1.00 - 4.40 x10E9/L Monocyte Absolute 0.63 0.15 - 1.00 x10E9/L Eosinophil Absolute 0.73 (H) 0.00 - 0.60 x10E9/L Basophil Absolute 0.04 0.00 - 0.13 x10E9/L GLUCOSE - POINT OF CARE Result Value Ref Range Glucose WB/POC 156 (H) 70 - 115 mg/dL Specimen Type Cap Fingerstick GLUCOSE - POINT OF CARE Result Value Ref Range Glucose WB/POC 205 (H) 70 - 115 mg/dL Specimen Type Arterial GLUCOSE - POINT OF CARE Result Value Ref Range Glucose WB/POC 242 (H) 70 - 115 mg/dL Specimen Type Arterial RENAL FUNCTION PANEL Result Value Ref Range BUN 22 7 - 26 mg/dL Creatinine 3.22 (H) 0.56 - 0.96 mg/dL Sodium 137 136 - 145 mmol/L Potassium 4.4 3.5 - 4.5 mmol/L Chloride 104 98 - 107 mmol/L CO2 26 22 - 29 mmol/L Glucose 104 70 - 115 mg/dL Albumin 2.0 (L) 3.4 - 5.0 g/dL Calcium 8.5 8.4 - 10.2 mg/dL Phosphorus 4.8 2.9 - 5.1 mg/dL Anion Gap 7 6 - 16 BUN/Creatinine Ratio 7 7 - 23 Osmolality Calculated 288 275 - 295 mOsm/kg eGFR by CKD-EPI 19 (L) >=90 mL/min/1.73 m2 CBC W AUTO DIFFERENTIAL Result Value Ref Range WBC 8.0 4.0 - 10.7 x10E9/L RBC Count 3.47 (L) 3.90 - 5.20 x10E12/L Hemoglobin 10.2 (L) 11.9 - 15.8 g/dL Hematocrit 33.8 (L) 34.8 - 46.1 % MCV 97.4 80.0 - 98.0 fL MCH 29.4 26.7 - 33.6 pg MCHC 30.2 (L) 31.7 - 36.3 g/dL RDW-CV 15.8 (H) 11.3 - 14.8 % Platelet Count 371 150 - 420 x10E9/L MPV 9.8 7.8 - 11.4 fL Neutrophil % 56.2 41.0 - 74.0 % Lymphocyte % 27.7 17.0 - 47.0 % Monocyte % 8.3 3.0 - 11.0 % Eosinophil % 6.9 0.0 - 7.0 % Basophil % 0.5 0.0 - 1.6 % Immature Granulocytes % 0.4 0.0 - 1.0 % Neutrophil Absolute 4.48 1.60 - 7.50 x10E9/L Lymphocyte Absolute 2.21 1.00 - 4.40 x10E9/L Monocyte Absolute 0.66 0.15 - 1.00 x10E9/L Eosinophil Absolute 0.55 0.00 - 0.60 x10E9/L Basophil Absolute 0.04 0.00 - 0.13 x10E9/L GLUCOSE - POINT OF CARE Result Value Ref Range Glucose WB/POC 122 (H) 70 - 115 mg/dL Specimen Type Arterial GLUCOSE - POINT OF CARE Result Value Ref Range Glucose WB/POC 202 (H) 70 - 115 mg/dL Specimen Type Arterial GLUCOSE - POINT OF CARE Result Value Ref Range Glucose WB/POC 215 (H) 70 - 115 mg/dL Specimen Type Arterial Other Studies: XR SHOULDER LEFT (05/24): IMPRESSION: Suggestion of a lucency projecting approximately [...] osteomyelitis nor evidence of fracture nor dislocation. Assessment & Recommendations 33-year-old female who was admitted with suspicion for right shoulder septic arthritis underwent arthrocentesis by Orthopedics twice. Rheumatology was consulted to evaluate for inflammatory disease process. # Inflammatory arthritis: Synovial fluid analysis does show inflammatory arthritis with positive nucleated cell presence. We think the cause of the inflammatory arthritis is infectious. Patient has purulent discharge from foot ulcer. We do not take any rheumatologic or autoimmune disease processes going on currently. Once infection has resolved rheumatology can be re-contacted for any questions. Thank you for the consult and rheumatology will sign off. Please contact the rheumatology fellow on-call with questions. This patient was seen and staffed with attending Dr. [place]. Bernadine Ochoa MD Rheumatology Fellow [facility] Associated attestation - Velasquez [place] MD - 05/27/2024 4:43 PM CDT Rheumatology Attending Attestation: I have seen and examined the patient with the fellow and I agree with the findings and plan of careas documented by the fellow. Low suspicion for rheumatic disease, favor septic arthritis. H/o recurrent infections. Synovial fluid cultures obtained after initiation of broad spectrum antibiotics. Today???s evaluation to inform management recommendations included review of other providers??? documentation, review of diagnostic studies, reviewing separately obtained history, performing a medically appropriate evaluation, communicating with other health field care advocate, documenting clinical information in the health record, independently interpreting results, counseling regarding the patient's medical problems and management plan, and care coordination. Time for these services on the date of encounter: 60+ minutes. Date of Service: 05/26/24. Velasquez [place] MD, FACP, FACR Director, Rheumatology Fellowship Program Department of Internal Medicine [facility] * Chavez Trimble MSW - 05/24/2024 3:08 PM CDTAssociated Order(s): IP CONSULT TO AUDIOVISUAL LIBRARIAN Social Work Progress Note Discharge Plan Disposition: Acute Rehab vs Home Transportation: Family Anticipated Discharge Date: TBD Contacts: Comments: Marble Machine Operator was unable to meet with patient, due to patient beginning asleep. Marble Machine Operator left resource packet by bedside. SW will continue to follow. Name/Phone number: VERONIKA Blake * Jasmyne Coleman RD/BARI - 05/24/2024 2:53 PM CDTAssociated Order(s): IP CONSULT TO NUTRITIONAL SERV Images from the original note were not included. Clinical Nutrition Assessment Brief Synopsis: Patient is at Nutrition Risk; Specific criteria can be found in assessment below Nutrition Plan: Current diet order: Consistent Carb Standard +Nathaniel BID (7gm arginine, 7gm glutamine, 2.5g collagen protein, 300mg VIT C, 9.5mg zinc) Recommendations to Physician: N/A Comments: RD consult per nursing screen (wound). Pt has non healing wound to R heel. RD to add supplement to support nutrition needs for wound healing. One meal recorded since admit (LOS only day 1) and intake was 100%. Labs reviewed, renal function consistent with ESRD. Glucose elevated (per only one lab value). Recommend to eval insulin reg if remains elevated. Last BM 05/23. RD to continue to follow per protocol. Assessment: Med/Surg History and Clinical Diagnoses: 33-year-old female with a PMH of blindness, T2DM, HTN, chronic HFpEF, chronic right heel ulcer/osteomyelitis(tx only with IV abx) , prior left BKA, ESRD on HD(//Fri) and possible sickle cell disease who was transferred from an outside hospital for left shoulder septic bursitis/osteomyelitis Height: 182.9 cm (6') Weight: 93.4 kg (205 lb 14.6 oz) BMI: Body mass index is 27.93 kg/m??. BMI Range: Overweight IBW/lb (Calculated) Female: 160, Recent Weights/Methods 05/19/2023 0400 05/19/2023 1300 05/21/2023 0837 06/10/2023 0845 02/26/2024 1501 05/23/2024 2202 05/24/2024 0501 05/24/2024 1400 Weight: 139.3 kg (307 lb) 139.3 kg (307 lb 1.6 oz) 139.3 kg (307 lb) 129.7 kg (286 lb) 98.9 kg (218lb) 93.4 kg (206 lb) -- 93.4 kg (205 lb 14.6 oz) Weight Method : Bedscale -- -- -- -- Stated Other (Comment) -- Wt Comments: Reviewed. 100 lb weight loss x1yr, however uncertain when L BKA was. Likely contributing factor along with fluid changes from HD. Will continue to monitor. Diet order accuracy Current diet order: Consistent Carb Standard Nutrition recommendation: alter/change nutrition order P.O.Intake for the past 48 hrs: % Meal Taken Av % Min: 100 % Max: 100 % Supplement(s) Consumed- Last 48 hours None Food Allergies: No known food allergies GI Concerns: None Chewing/Swallowing: None Pain affecting intake: No Estimated Needs: KCAL: 4124-3311 (30-33kcal/kg) Protein (g): 103 (1.5g/kg) Fluid (ml): Other (comments) (UO + 500-1000mL) Needs based on: Kcal/kg- (Comment) (actual adjusted BW 69kg) Recommended Access Route: PO Laboratory values: Recent Labs Component Name 05/24/24 0625 03/02/24 0338 03/01/24 0310 02/23/24 0737 02/22/24 2214 06/10/23 0939 BUN 33* 39* 28* - 21 8 CREATININE 3.64* 7.43* 5.80* - 4.88* 1.96* NA 139 137 135* - 136 143 POTASSIUM 4.2 5.5* 4.9* - 4.1 4.1 CL 104 102 106 - 100 110* CO2 26 25 21* - 26 25 GLUCOSE 240* 92 112 - 261* 79 CALCIUM 8.5 8.8 8.8 - 8.8 8.3* PROT 7.2 - - - 8.1 5.8* ALB 1.9* - - - 1.5* 1.5* TBILI 0.1* - - - 0.2 0.2 ALKPHOS 170* - - - 221* 139 ALT 25 - - - 11 8 AST 14 - - - 7 12 ANIONGAP 9 10 8 - 10 12 BCR 9 5* 5* - 4* 4* OSMOLALITY 303* 293 286 - 294 293 AGRATIO 0.4* - - - 0.2* 0.3* EGFR 16* 7* 9* - 12* 35* - = values in this interval not displayed. Medications: Current Facility-Administered Medications Medication 0.9% NaCl injection 3 mL And 0.9% NaCl injection 1-10 mL acetaminophen (Tylenol) tablet 650 mg amLODIPine (Norvasc) tablet 10 mg carvedilol (Coreg) tablet 12.5 mg cefepime (Maxipime) 1,000 mg in 0.9% NaCl IV 50 mL IVPB dextrose 10 % IV bolus Or dextrose 10 % IV bolus Or glucagon (Glucagen) injection 1 mg furosemide (Lasix) tablet 40 mg gabapentin (Neurontin) capsule 100 mg glucose (Diabetic Use) oral gel heparin injection 5,000 Units HYDROcodone-acetaminophen (Driver) 5-325 MG tablet 1 tablet HYDROmorphone (Dilaudid) injection 0.5 mg insulin aspart (NovoLOG) pen 0-12 Units lisinopril (Prinivil; Zestril) tablet 20 mg ondansetron (disintegrating) (Zofran ODT) tablet 4 mg Or ondansetron (Zofran) injection 4 mg polyethylene glycol 3350 (Miralax) packet 17 g renal vitamin (Dialyvite) tablet 1 tablet senna (Senokot) tablet 8.6 mg sevelamer carbonate (Renvela) tablet 800 mg [START ON 05/25/2024] vancomycin (Vancocin) 1,000 mg in 0.9% NaCl IV 250 mL IVPB vancomycin (Vancocin) IV dose per pharmacy Skin/Wound: L BKA, R heel ulcer Education needed: Wound Healing Education Provided: Prior to Discharge Nutrition Care Process (1) Nutrition Diagnostic Statement: Increased nutrient needs related to:: increased demands for wound healing as evidenced by:: estimated energy needs ..;estimated protein needs ..;delayed wound healing Nutrition Diagnostic Statement Progress: New diagnostic statement established Nutrition Intervention: Meals and snacks:;Medical Food Supplements: Monitoring: GI, PO intake, Wt, labs, medications Evaluation: Nutrition Goal: Total intake will meet estimated nutrient needs Nutrition Goal Timeframe: Throughout stay Nutrition Goal Progress: New goal established Ascom [id number] * Roxanna Roth PA-C - 05/24/2024 2:41 PM CDTAssociated Order(s): IP CONSULT TO INFECTIOUS DISEASES [facility] Infectious Diseases Consultation Patient Name: aGy Canales 1990 Room: [facility] Date of Admission: 05/23/2024 Date of Service: 05/24/2024 Primary Care Physician: CHERISE MARCELO PA-C Attending Physician: Noe Rabago MD Reason for Infectious Disease Consultation Left shoulder septic bursitis / osteomyelitis, antibiotic recommendations IMPRESSION Left shoulder septic bursitis / osteomyelitis History of MRSA bacteremia History of left pectoral abscess s/p I&D and antibiotic treatment, EOT 04/07/2024 Chronic right heel ulcer with chronic osteomyelitis DM2 ESRD on HD RECOMMENDATIONS - Continue IV vancomycin - Continue IV cefepime - Recommend orthopedic consult for left shoulder - Recommend nephrology consult for HD line dressing, with open to air, patient at high risk for line infection - Please obtain CBC w diff, CMP, ESR, CRP, vancomycin trough at least weekly while on IV antibiotics. - As part of routine screening, HCV antibody with reflex to HCV RNA quantitative (universally recommended per CDC guidelines) DISCUSSION Gay Canales is a 33 year old female with PMH of blindness, T2DM, HTN, chronic HFpEF, chronic right heel ulcer/osteomyelitis(tx only with IV abx) , prior left BKA, ESRD on HD (//Fri) and possible sickle cell disease, permanent residence at [facility]. Patient presented to [facility] on 05/23/2024 as OSH transfer for concerns of left shoulder septic bursitis / osteomyelitis. Left shoulder septic bursitis / osteomyelitis - 05/20/2024: Bcx no growth - 05/21/2024: S/p OSH left shoulder aspiration, culture no growth - On IV vancomycin / IV cefepime - Needs evaluation by orthopedic surgery at [facility] this admission History of MRSA bacteremia History of left pectoral abscess s/p I&D and antibiotic treatment - Patient at increased risk for recurrent MRSA infection Chronic right heel ulcer with chronic osteomyelitis - does not appear infected at this time - No indication to treat chronic osteo with stable wound DM2 - A1C 6.5 on 02/23/2024 - Continue care per primary team ESRD on HD - Followed by nephrology - Need right IJ permacath dressing evaluated by nephrology due to itching CDC Screening - HIV negative 02/24/2024 - Recommend Hep C testing QTC: Not available Renal Function: Estimated Creatinine Clearance: 28.7 mL/min (A) (by C-G formula based on SCr of 3.64 mg/dL (H)). Hardware: None Thank you for for this interesting consult. We will continue to follow and monitor with you closely. Please call the [employer] [facility] pager [phone] with any questions. I spent 60 mins in the care of this patient to include chart review, coordination of care, and patient interview / examination / education independent from the attending physician. I spent an additional 10 mins in discussion with attending physician Aldo regarding patient case. Patient seen and examined, case discussed with ID attending. JESSICA Sorensen, PAJose EnriqueC Division of Infectious Diseases Pager: [phone], [email or web address] - [employer] Secure Chat preferred ID Clinic ID Clinic Subjective History of Present Illness: Gay Canales is a 33 year old female with PMH of blindness, T2DM, HTN, chronic HFpEF, chronic right heel ulcer/osteomyelitis(tx only with IV abx) , prior left BKA, ESRD on HD (//Fri) and possible sickle cell disease, permanent residence at [facility]. Patient presented to [facility] on 05/23/2024 as OSH transfer for concerns of left shoulder septic bursitis / osteomyelitis. Per chart review and clarification with patient, she had a left axillary abscess in February 2024 which was treated with I&D and a short course of PO antibiotics. She has had progressive worsening of her shoulder pain. Presented to OSH (Loc) on 05/15/2024. CT left shoulder showed large complex subacromial / subdeltoid and subcoracoid bursal fluid collection associated with osteolysis at the coracoid process and under surface of the acromion consistent with septic bursitisand osteomyelitis. Patient started on IV vancomycin and cefepime at OSH. OSH records received with blood cultures from 05/20 with no growth. Orthopedic surgery at OSH aspirated 145 cc purulent / serosanguineous fluid from left shoulder on 05/21/2024. Gram stain from OSH shows no organisms and no culture growth to date. Patient transferred to [facility] on 05/23/2024 for further evaluation. Labs at transfer with CRP 1.4, ESR 114, WBC 8.9, Alk phos 170. Otherwise stable. Patient has right IJ HD permacath. She reports that it is open to air most of the time secondary toitching around the dressing. She has a chronic wound on her right heel which is not painful and has not worsened since she had an I&D in 04/2023 and completed IV antibiotics for osteomyelitis. Previous [facility] Hx: 04/26/2023 -05/09/2023: Presented for for foot [...] transitioned to PO linezolid to complete treatment. ID consulted for left shoulder septic bursitis osteomyelitis. Today patient reports that she continues to have severe left shoulder pain, also right shoulder pain but not as bad. No nausea, vomiting, fevers, chills, diarrhea. Has had no problems with her antibiotics. Medical History Past Medical History: Diagnosis Date Essential (primary) hypertension Heart failure (HCC) Type 2 diabetes mellitus without complications (HCC) Surgical History Past Surgical History: Procedure Laterality Date LEG AMPUTATION ABOVE KNEE Left 12/05/2022 Left; AMPUTATION ABOVE LEFT KNEE Leg Amputation, Below Knee Left 12/02/2022 Left; LEFT ANKLE DISARTICULATION LEVEL 2 @ 2220 Social History Living situation: Permanent resident at [facility] HIV status: Negative 02/24/2024 Social History Socioeconomic History Marital status: Single Tobacco Use Smoking status: Former Types: Cigarettes Start date: 2010 Smokeless tobacco: Never Tobacco comments: Quit 4-5 months after starting Vaping Use Vaping Use: Never used Substance and Sexual Activity Alcohol use: Not Currently Comment: Occassionally Drug use: Not Currently Types: Marijuana Comment: At age 20 for 4-5 months Sexual activity: Not Currently Immunizations: Immunization History Administered Date(s) Administered DTP, [...] Review of Systems Review of Systems Constitutional: Negative. HENT: Negative. Eyes: Blindness Respiratory: Negative. Cardiovascular: Negative. Gastrointestinal: Negative. Genitourinary: Negative. Musculoskeletal: Bilateral shoulder pain, L>R. S/p Left AKA Right heel ulcer, chronic Skin: Itching with right HD IJ dressing Neurological: Negative. Endo/Heme/Allergies: Negative. Psychiatric/Behavioral: Negative. Allergies No Known Allergies Antimicrobial History Current Antibiotics IV vancomycin (05/24/2024 - present) IV cefepime (05/24/2024 - present) Prior Antibiotics At [facility] Prior Antibiotics at OSH PO Linezolid (Completed 04/2024) Home Medications Prior to Admission medications Medication Sig Start Date End Date Taking? Authorizing Provider acetaminophen (Tylenol) 500 MG tablet Take 1 (one) tablet by mouth every 4 hours Maximum allowable Acetaminophen amount = 4 Grams (4000 mg) / 24 hours. Patient not taking: Reported on 05/23/2024 03/02/24 Martine Morrissey MD Alcohol Swabs (Alcohol [...] for Constipation Patient not taking: Reported on 05/23/2024 02/28/24 Geronimo Burleson MD blood glucose (OneTouch Verio) test strip USE ONE STRIP TO TEST BLOOD SUGAR FOUR TIMES DAILY 12/12/22Amanda Georges MD Blood Glucose Monitoring Suppl (OneTouch Verio Reflect) w/Device KIT Use 1 kit 4 times daily USE METER TO CHECK BLOOD GLUCOSE FOUR TIMES DAILY Reasons: CALL [facility] WHEN DELIVERING [id number] 12/12/22 Amanda Georges MD carvedilol (Coreg) 12.5 MG tablet Take 1 (one) tablet by mouth 2 times daily with morning and evening meal 12/12/22 Yes Rosi Menard APRN-LEEROY FeroSul 325 (65 Fe) MG tablet Take [...] 05/09/23 Yes Joe Vargas MD nystatin (Mycostatin) 479675 UNIT/GM powder Apply to affected area 3 times daily 12/12/22 Yes Rosi Menard APRN-LEEROY polyethylene glycol 3350 (Miralax) 17 g packet [...] with meals 02/28/24 Yes Geronimo Burleson MD Objective Vitals BP 141/78 (BP Location: Right arm, Patient Position: Lying) Pulse 83 Temp 98.2 ??F (36.8 ??C) (Oral) Resp 16 Ht 1.83 m (6' 0.05 ) Wt 93.4 kg (206 lb) SpO2 95% Temp (24hrs), Av.2 ??F (36.8 ??C), Min:98 ??F (36.7 ??C), Max:98.3 ??F (36.8 ??C) Physical Exam PHYSICAL EXAM General: Alert, no distress, not toxic appearing, laying in bed and appears comfortable. Head: Normocephalic, atraumatic EENT: Patient blind. Nose Normal. Neck: Supple, No cervical lymphadenopathy. No JVD. Chest wall: No tenderness or deformity Lungs: Clear to auscultation bilaterally, no wheezes, rales, rhonchi. Heart: RRR, S1, S2 normal, no murmur, gallops, or rubs. Abdomen: Soft, non-distended, non-tender, no organomegaly or masses. +BS Extremities: Right shoulder with tenderness over joint. Left upper extremity with increased tenderness and swelling over the anterior shoulder joint compared to the right. Right foot with ulcer present. Left AKA with no signs of infection. Skin: No rashes. Neurologic: Alert and oriented x 3, moving all extremities Psychiatry: Appropriate mood/affect Lines: right HD IJ with no dressing, PIV left forearm Lab Review CBC: Recent Labs Component Name 05/24/24 0548 03/02/24 0338 03/01/24 0310 WBC 8.9 14.0* 14.1* RBC 3.36* 3.03* 3.02* HGB 9.9* 8.8* 9.0* HCT 32.7* 29.2* 28.7* MCV 97.3 96.4 95.0 BMP: Recent Labs Component Name 05/24/24 0625 03/02/24 0338 03/01/24 0310 02/23/24 0737 02/22/24 2214 06/10/23 0939 NA 139 137 135* - 136 143 CL 104 102 106 - 100 110* CO2 26 25 21* - 26 25 BUN 33* 39* 28* - 21 8 CREATININE 3.64* 7.43* 5.80* - 4.88* 1.96* ALB 1.9* - - - 1.5* 1.5* PROT 7.2 - - - 8.1 5.8* - = values in this interval not displayed. estimated creatinine clearance is 28.7 mL/min (A) (by C-G formula based on SCr of 3.64 mg/dL (H)). LFTs: Recent Labs Component Name 05/24/24 0625 02/22/244 06/10/23 0939 12/02/22 1955 08/25/22 0315 08/24/22 1404 08/24/22 0725 ALKPHOS 170* 221* 139 - - - - ALT 25 11 8 - - - - AST 14 7 12 - - - - ALBUMIN - - - - 2.0* 2.1* 1.7* - = values in this interval not displayed. Coagulation: Recent Labs Component Name 02/22/24221304/26/23 0629 PT 14.6 16.3* INR 1.2 1.3 PTT - 29.8 ESR: Recent Labs Component Name 05/24/24 0548 02/23/24 0737 06/10/23 0939 ESR 114* 116* 57* CRP: Recent Labs Component Name 05/24/24 0625 02/23/24 0737 06/10/23 0939 CRP 1.4* 8.3* <0.5 CK: No results for input(s): CK in the last 74589 hours. Microbiology, Imaging and other diagnostic tests MICROBIOLOGY: Blood culture: 05/20/2024: OSH No growth Aspiration Left shoulder OSH 05/21/2024: Gram stain (no organisms, many WBCs); Culture no growth Other Serologies: HISTOPATHOLOGY: None at this admission IMAGING & PROCEDURES: Pertinent images independently reviewed; report in chart XR Left shoulder (05/24/2024): IMPRESSION: Suggestion of a lucency projecting approximately [...] osteomyelitis nor evidence of fracture nor dislocation. Associated attestation - Chloe Carlson MD - 05/25/2024 6:[address] [facility] Infectious Diseases Attending Note Documentation Date/Time: 05/24/2024, 6:42 PM The patient was seen and evaluated with Roxanna Roth PA-C. I agree with the findings as described in the note, including the history, interval changes, ROS, examination, objective data interpretation, impression and plan as documented, though specifically I note the followin33 year old female with PMH of HTN, HFpEF, T2DM, blindness, chronic right heel osteomyelitis, s/p left BKA, ESRD on hemodialysis TTS via R IJ Permcath (HD initiated 7 months ago per patient), and ?sickle cell disease, presenting on 05/23/2024 as an OSH transfer for management of osteomyelitis of left shoulder. Recurrent left shoulder septic arthritis and osteomyelitis: Could be from partially treated infection (see #2), or re-infection source from (1) chronic right heel wound; or (2) R IJ Permcath related. 05/24/2024 aspiration of the left shoulder with Ortho, 50 mL of bloody and purulent fluid was aspirated (was on IV vancomycin and cefepime at OSH), Gram stain no organisms seen, follow final cultures. Continue IV vancomycin and IV cefepime Follow up further plan from orthopedic surgery. History of MRSA bacteremia (02/16/2024) c/b left pectoralis major abscesses, and left shoulder septic arthritis and osteomyelitis: S/p abscess near L-shoulder aspiration (11 mL pus) on 02/25/2024, Gram stain showed no organisms and culture negative. Was treated with IV vancomycin ->linezolid PO,6 weeks total through 04/06/2024. However, image (CT or MRI) was not obtained at the end of 6 weeksof antibiotics to confirm resolution of the abscess. Chronic right heel wound with osteomyelitis. T2DM c/b blindness. ESRD on hemodialysis TTS via R IJ Permcath. The catheter is not on any dressing in place (patient states that she had itching on dressing. Please discuss with nephrology for alternative types of dressing. Plan and recommendation: - Continue IV vancomycin and IV cefepime - Follow blood culture at OSH - Follow fluid culture from 05/24/2024 left shoulder aspiration - Follow up further plan from orthopedic surgery. - Needs dressing placement for R IJ Permcath. Please discuss with nephrology for alternative types of dressing. Thank you for allowing us to participate in the care of this patient. Infectious Diseases will continue to follow along, please call with questions or concerns. Chloe Carlson MD Infectious Diseases Attending * Eli Colindres - 05/24/2024 12:57 PM CDTAssociated Order(s): IP CONSULT TO NEPHROLOGY [facility] Nephrology Consult Note Date of Admission: 05/23/2024 Date of Service: 05/24/2024 Consulting Service: Med flex/surge team Consulting Person: Deyvi Antoine Reason for Consult: ESKD HISTORY: Gay Canales is a 33 year old female w/ PMH significant for HTN, HFpEF, T2DM complicated by blindness, chronic R heel osteomyelitis, prior L BKA, ?sickle cell disease, and ESKD on HD TTS via R-IJ Permcath, who presents with need for inpatient continuation of HD. Dialysis Center: [facility] Dialysis Days: TTS Date of last dialysis: 05/22 (at OSH before transferred to [facility]) Access: R-IJ Permcath Anticoagulation: Dialysis Duration: 3 Hours 30 Minutes Dry Weight: 98 kg Last erythropoietin dose and date: every 2 weeks; 75 mcg mircera Voltmeter Operator: Dr. Millan Review of Systems ROS All systems negative except as noted above Past Medical History: Diagnosis Date Essential (primary) [...] of Health Financial Resource Strain: Low Risk (05/23/2024) Overall Financial Resource Strain (CARDIA) Difficulty of Paying Living Expenses: Not hard at all Food Insecurity: No Food Insecurity (05/23/2024) Hunger Vital Sign Worried About Running Out of Food in the Last Year: Never true Ran Out of Food in the Last Year: Never true Transportation Needs: No Transportation Needs (05/23/2024) PRAPARE - Transportation Lack of Transportation (Medical): No Lack of Transportation (Non-Medical): No Stress: No Stress Concern Present (05/23/2024) [employer] [place] [employer] - Occupational Stress Questionnaire Feeling of Stress : Not at all Housing Stability: High Risk (05/23/2024) Housing Stability Vital Sign [...] 24 hours. (Patient not taking: Reported on 05/23/2024) Alcohol Swabs (Alcohol Prep) 70 % USE ONE SWAB TO CLEAN SKIN FOUR TIMES DAILY BEFORE TESTING 100 Each PRN amLODIPine (Norvasc) 10 MG tablet Take 1 (one) tablet by mouth once daily bisacodyl (Dulcolax) 10 MG suppository Insert 1 (one) suppository into the rectum once daily as needed for Constipation (Patient not taking: Reported on 05/23/2024) blood glucose (OneTouch Verio) test strip USE [...] Units subcutaneously 3 times daily with meals Lancets (Buzz All Stars PLUS 33G EXTRA FINE LANCET) USE ONE LANCET TO PRICK FINGER FOUR TIMES DAILY FOR BLOOD GLUCOSE TESTING 100 Each PRN lisinopril (Prinivil; Zestril) 20 MG tablet Take 1 (one) tablet by mouth once daily melatonin 3 MG tablet Take 1 (one) tablet by mouth nightly as needed for Insomnia nystatin (Mycostatin) 019395 UNIT/GM powder Apply to affected area 3 times daily polyethylene glycol 3350 (Miralax) 17 g packet [...] QDAY carvedilol 12.5 mg Oral BID WC cefepime 1 g Intravenous q24h ferrous sulfate 325 mg Oral QDAY WITH BREAKFAST furosemide 40 mg Oral FRI, FRI AND FRI gabapentin 100 mg Oral TID heparin 5,000 Units Subcutaneous BID insulin aspart 0-6 Units Subcutaneous q6h lisinopril 20 mg Oral QDAY renal vitamin 1 tablet Oral QDAY sennosides 8.6 mg Oral QDAY sevelamer carbonate 800 mg Oral TID WC [START ON 05/25/2024] vancomycin 1,000 mg Intravenous Once vancomycin (VANCOCIN) IV dose per pharmacy Does not apply DIRECTED Physical Exam: Vitals: 05/23/24 2202 05/24/24 0448 05/24/24 0735 05/24/24 1159 BP: 137/86 129/83 135/85 141/78 Pulse: 85 83 88 83 Resp: 16 16 Temp: 98 ??F (36.7 ??C) 98.1 ??F (36.7 ??C) 98.3 ??F (36.8 ??C) 98.2 ??F (36.8 ??C) SpO2: 98% 95% 95% Weight: 93.4 kg (206 lb) Height: 1.83 m (6' 0.05 ) No intake or output data in the 24 hours ending 05/24/24 1258 Genera Appearance: NAD Eye, Nose,Throat: grossly wnl Neck: Supple Cardiovascular:Well perfused Respiratory: Normal WOB, ORA Abdomen: NTND Extremities: L BKA Neurologic: grossly wnl Skin:dry skin, otherwise no rash Dialysis access: R-IJ Permcath: c/d/i LABS: Recent Labs Component Name 05/24/24 0625 03/02/24 0338 03/01/24 0310 NA 139 137 135* POTASSIUM 4.2 5.5* 4.9* CL 104 102 106 CO2 26 25 21* BUN 33* 39* 28* CREATININE 3.64* 7.43* 5.80* Recent Labs Component Name 05/24/24 0625 03/02/24 0338 03/01/24 0310 02/29/24 0127 CALCIUM 8.5 8.8 8.8 8.3* PHOS - 7.3* 6.1* 4.1 Recent Labs Component Name 02/25/24 0110 PTHINTACT 93.0* 25-OH Vitamin D = Recent Labs Component Name 02/23/24 0737 04/27/23 0730 12/02/22 2032 HGBA1C 6.5* 6.7* 6.7* EAG 140 146 146 Recent Labs Component Name 05/24/24 0548 03/02/24 0338 03/01/24 0310 WBC 8.9 14.0* 14.1* HGB 9.9* 8.8* 9.0* Recent Labs Component Name 02/25/24 0110 IRON 23* TIBC 149* FERRITIN 833* IMAGING: No results found. ASSESSMENT ESRD on maintenance hemodialysis TTS: will continue inpatient Hypertension: normotensive currently RECOMMENDATIONS 1. HD TTS, will place order 2. Please obtain phosphorus w/ daily labs. Patient will be seen and discussed with attending physician, Dr. Stein. Eli Colindres, MS4 Associated attestation - Tao Stein MD - 05/24/2024 9:12 PM CDT I have verified the documentation of the Medical student, including all history, exam, and medical decision-making details. I have personally performed a physical exam and have personally reviewed the data to support my medical decision-making as outlined in the student's note, and I arrive independently at the same conclusion. Ms Canales is a 33 yo woman with DM, HTN, CHF, s/p L BKA, with ESRD on chronic hemodialysis who is admitted for treatment of shoulder osteomyelitis. She appear comfortable on exam, complains of some pain in left shoulder. No respiratory distress. Appears euvolemic. We will provide her dialysis support while she is in the hospital. Next regular dialysis session tomorrow. Date of Service: 05/24/2024 Tao Stein MD * Jimmy Johnston MD - 05/24/2024 11:46 AM CDT [facility] Consultation Note Gay Canales, 33 year old, female : 1990 CSN: [id number] Primary Care Physician: CHERISE MARCELO PA-C Chief Complaint No chief complaint on file. Admission Date/Time: 05/23/2024 8:00 PM Today's Date/Time: 05/24/2024 1:29 PM Time at Bedside: on arrival HPI Consulting Service: Medicine HPI: Gay Canales is a 33 year old female who presented to [facility] Emergency Department on 05/23/2024 as a transfer from [place] with complaint of left shoulder pain and concern for septic arthritis. 145 cc of purulent fluid was reportedly aspirated from the patient's left shoulder at [facility] and the patient was transferred here for further management. At [facility], ESR was 114 and CRP was 1.4. The patient reports 2.5 weeks of painful ROM in the left shoulder. Patient rates the pain as moderate, without radiation. Symptoms are aggravated by movement. Symptoms improve with rest. ROS otherwise negative. Of note, the patient has history of right shoulder infection which was previously aspirated by [facility] orthopaedics. No fever, chills. - ABx/Tetanus booster: Vancomycin, Cefepime - PMH: blindness, T2DM, HTN, chronic HFpEF, chronic right heel ulcer/osteomyelitis(tx only with IV abx) , prior left BKA, ESRD on HD (//Fri) and possible sickle cell disease. Left AKA Vitals Blood pressure 141/78, pulse 83, temperature 98.2 ??F (36.8 ??C), temperature source Oral, resp. rate 16, height 1.83 m (6' 0.05 ), weight 93.4 kg (206 lb), last menstrual period 08/08/2022, SpO2 95%, not currently . PMHx Past Medical History: Diagnosis Date Essential [...] 1-10 mL acetaminophen (Tylenol) tablet 650 mg amLODIPine (Norvasc) tablet 10 mg carvedilol (Coreg) tablet 12.5 mg cefepime (Maxipime) 1,000 mg in 0.9% NaCl IV 50 mL IVPB dextrose 10 % IV bolus Or dextrose 10 % IV bolus Or glucagon (Glucagen) injection 1 mg ferrous sulfate tablet 325 mg furosemide (Lasix) tablet 40 mg gabapentin (Neurontin) capsule 100 mg glucose (Diabetic Use) oral gel heparin injection 5,000 Units HYDROcodone-acetaminophen (Driver) 5-325 MG tablet 1 tablet HYDROmorphone (Dilaudid) injection 0.5 mg insulin aspart (NovoLOG) pen 0-6 Units lisinopril (Prinivil; Zestril) tablet 20 mg ondansetron (disintegrating) (Zofran ODT) tablet 4 mg Or ondansetron (Zofran) injection 4 mg renal vitamin (Dialyvite) tablet 1 tablet senna (Senokot) tablet 8.6 mg sevelamer carbonate (Renvela) tablet 800 mg [START ON 05/25/2024] vancomycin (Vancocin) 1,000 mg in 0.9% NaCl IV 250 mL IVPB vancomycin (Vancocin) IV dose per pharmacy Review of Systems A 12 point review of systems was performed and was negative except for: what was mentioned in the HPI Vitals Blood pressure 141/78, pulse 83, temperature 98.2 ??F (36.8 ??C), temperature source Oral, resp. rate 16, height 1.83 m (6' 0.05 ), weight 93.4 kg (206 lb), last menstrual period 08/08/2022, SpO2 95%, not currently . Physical Exam General: Awake, cooperative, in no acute distress. Left upper extremity: -Appearance: skin intact, compartments soft/compressible -Tenderness: nontender to palpation of shoulder arm and hand. -ROM: nontender to passive range of motion of elbow, wrist, and fingers. Tender to passive range ofmotion of shoulder. No crepitation -Motor: Able to ABduct index and small fingers, able to Flex thumb at IP joint, able to hold thumb extended, able to flex/extend the elbow, able to ABduct shoulder -Sensation: intact to light touch Axillary/Median/Ulnar/Radial distributions, patient endorses normal sensation in the hand -Vascular: WWP, Good capillary refill. Palpable radial pulse with fingers warm and well perfused Right upper extremity: -Appearance: skin intact, compartments soft/compressible -Tenderness: nontender to palpation of shoulder, arm, and hand. -ROM: nontender to passive range of motion of shoulder, elbow, wrist, and fingers. No crepitation -Motor: Able to ABduct index and small fingers, able to Flex thumb at IP joint, able to hold thumb extended, able to flex/extend the elbow, able to ABduct shoulder -Sensation: intact to light touch Axillary/Median/Ulnar/Radial distributions, patient endorses normal sensation in the hand -Vascular: WWP, Good capillary refill. Palpable radial pulse with fingers warm and well perfused Right lower extremity: -Appearance: skin intact, compartments soft/compressible -Tenderness: nontender to palpation of hip, leg, and foot. -ROM: nontender to passive range of motion of hip, knee, ankle, and foot. No crepitation -Motor: Able to plantarflex ankle, able to dorsiflex ankle, able to plantarflex great toe, able to dorsiflex great toe -Sensation: intact to light touch in DP/SP/Sural/Saphenous/Tibial nerve distributions, patient endorses normal sensation in the foot -Vascular: Palpable DP/PT pulse with toes warm and well perfused Left lower extremity: - Above knee amputation. Sensation intact distally to the stump. Labs Recent Labs Component Name 05/24/24 0548 03/02/24 0338 WBC 8.9 14.0* HGB 9.9* 8.8* HCT 32.7* 29.2* MCV 97.3 96.4 PLTCOUNT 402 595* Recent Labs Component Name 05/24/24 0625 03/02/24 0338 NA 139 137 POTASSIUM 4.2 5.5* CL 104 102 CO2 26 25 BUN 33* 39* CREATININE 3.64* 7.43* GLUCOSE 240* 92 Recent Labs Component Name 02/22/24 2214 INR 1.2 PT 14.6 ESR: 114 CRP: 1.4 Imaging - XRs of left shoulder reviewed. Demonstrates no acute fractures or dislocations Assessment/Plan: 33 year old female with concern for left shoulder septic arthritis Weight bearing Status: LUE WBAT Shoulder aspirated. 50cc of bloody aspirate with purulence Diet: NPO at midnight Antibiotics: hold for now Anticoagulation Status: Please start DVT prophy as long as not contraindicated for other medical reason. Pain Control Final plan pending synovial analysis Dispo: continue medical hospitalization Will update plan with any new changes. Follow up Contact Information: Orthopaedic Surgery [facility], Level I-Orthopaedic Surgery [address] [place] [phone] Jimmy Johnston MD Department of Orthopedic Surgery PGY-1 documented in this encounter Miscellaneous Notes * Coding Query - Hunter Chin III, MD - 05/27/2024 2:55 PM CDT DOCUMENTATION CLARIFICATION REQUEST TO: Dr. Chin FROM: BREANNE Forman, RN, [facility] [phone] [email or web address] Please clarify and document your clinical opinion if the patient is being monitored/evaluated/treated for Non-pressure ulcer of the right heel, poa Pressure ulcer of the right heel, poa Other specific explanation of clinical findings Unable to determine (no explanation for clinical findings) The medical record reflects the following risk factors, clinical findings and treatment: Risk Factors: Hx dm, osteomyelitis, right heel ulcer Clinical Findings: 05/25 ID consult: Chronic right heel wound with chronic osteomyelitis. She has achronic wound on her right heel which is not painful and has not worsened since she had an I&D in 04/2023 and completed IV antibiotics for osteomyelitis. Pressure ulcer of the right heel documented in the nurse's skin flowsheet on 05/23. Treatment including: Wound nurse consult, wound care to affected area PHYSICIAN CLARIFICATION OF PATIENT DIAGNOSIS/PROCEDURE (Select edit then F2 to Respond) Pressure ulcer of the right heel, poa Please provide your clinical opinion in the progress notes & carry it through into your discharge summary. Please include clinical findings supporting your diagnosis. This documentation is maintained as a permanent part of the medical record. documented in this encounter Plan of Treatment Upcoming Encounters Date Type Department Care Team (Late st Contact Info) Description 11/22/2024 1:30 PM [employer] Office Visit [facility] - Infectious Disease [address] [place] [address], [place] [address] Kash Ha MD [address] [place] [id number] Scheduled Referrals Name Type Priority Associated Diagnoses Orde r Schedule Ref to Orthopedics [facility] Outpatient Referral Routine Osteomyelitis of left shoulder, unspecified type (HCC) Ordered: 06/03/2024 documented as of this encounter Procedures Procedure Name Priority Date/Time Associated Diagnosis Comments GLUCOSE - POINT OF CARE Routine 06/03/20 3:59 PM CDT GLUCOSE - POINT OF CARE Routine 06/03/20 2:08 PM CDT GLUCOSE - POINT OF CARE Routine 06/03/20 8:23 AM CDT HEMODIALYSIS INPATIENT Routine 7:53 AM CDT CBC W AUTO DIFFERENTIAL AM Draw 06/03/20 12:09 AM CDT RENAL FUNCTION PANEL AM Draw 06/03/2024 12:09 AM CDT GLUCOSE - POINT OF CARE Routine 06/02/20 10:16 PM CDT GLUCOSE - POINT OF CARE Routine 06/02/20 5:04 PM CDT GLUCOSE - POINT OF CARE Routine 06/02/20 11:30 AM CDT GLUCOSE - POINT OF CARE Routine 06/02/20 8:17 AM CDT CBC W AUTO DIFFERENTIAL AM Draw 06/02/20 5:52 AM CDT RENAL FUNCTION PANEL AM Draw 06/02/2024 5:52 AM CDT IRON + TRANSFERRIN PANEL Routine 06/02/2024 5:52 AM CDT FERRITIN Routine 06/02/2024 5:52 AM CDT GLUCOSE - POINT OF CARE Routine 06/01/20 9:05 PM CDT GLUCOSE - POINT OF CARE Routine 06/01/20 3:27 PM CDT GLUCOSE - POINT OF CARE Routine 06/01/20 7:49 AM CDT CBC W AUTO DIFFERENTIAL AM Draw 06/01/20 4:42 AM CDT RENAL FUNCTION PANEL AM Draw 06/01/2024 4:42 AM CDT VANCOMYCIN LEVEL RANDOM AM Draw 06/01/20 4:42 AM CDT GLUCOSE - POINT OF CARE Routine 05/31/20 8:08 PM CDT HEPATITIS C AB SCREEN RFLX NAAT QUANT Routine 05/31/2024 6:38 PM CDT HEMODIALYSIS INPATIENT Routine 5:56 PM CDT GLUCOSE - POINT OF CARE Routine 05/31/20 5:17 PM CDT GLUCOSE - POINT OF CARE Routine 05/31/20 11:39 AM CDT GLUCOSE - POINT OF CARE Routine 05/31/20 8:19 AM CDT CBC W AUTO DIFFERENTIAL AM Draw 05/31/20 6:05 AM CDT RENAL FUNCTION PANEL AM Draw 05/31/2024 6:05 AM CDT GLUCOSE - POINT OF CARE Routine 05/30/20 8:25 PM CDT GLUCOSE - POINT OF CARE Routine 05/30/20 4:18 PM CDT GLUCOSE - POINT OF CARE Routine 05/30/20 12:42 PM CDT GLUCOSE - POINT OF CARE Routine 05/30/20 8:24 AM CDT CBC W AUTO DIFFERENTIAL AM Draw 05/30/20 4:52 AM CDT RENAL FUNCTION PANEL AM Draw 05/30/2024 4:52 AM CDT GLUCOSE - POINT OF CARE Routine 05/29/20 8:04 PM CDT GLUCOSE - POINT OF CARE Routine 05/29/20 4:53 PM CDT GLUCOSE - POINT OF CARE Routine 05/29/20 1:37 PM CDT GLUCOSE - POINT OF CARE Routine 05/29/20 10:28 AM CDT GLUCOSE - POINT OF CARE Routine 05/29/20 7:34 AM CDT CBC W AUTO DIFFERENTIAL AM Draw 05/29/20 4:08 AM CDT RENAL FUNCTION PANEL AM Draw 05/29/2024 4:08 AM CDT VANCOMYCIN LEVEL RANDOM Routine 05/29/20 4:08 AM CDT GLUCOSE - POINT OF CARE Routine 05/28/20 7:43 PM CDT GLUCOSE - POINT OF CARE Routine 05/28/20 4:37 PM CDT HEMODIALYSIS INPATIENT Routine 1:35 PM CDT GLUCOSE - POINT OF CARE Routine 05/28/20 11:47 AM CDT GLUCOSE - POINT OF CARE Routine 05/28/20 9:05 AM CDT MRI SHOULDER LEFT WWO CONT Routine 05/28/2024 8:56 AM CDT ESRD (end stage renal disease) (HCC) CBC W AUTO DIFFERENTIAL AM Draw 05/28/20 3:35 AM CDT RENAL FUNCTION PANEL AM Draw 05/28/2024 3:35 AM CDT GLUCOSE - POINT OF CARE Routine 05/27/20 8:02 PM CDT GLUCOSE - POINT OF CARE Routine 05/27/20 5:10 PM CDT GLUCOSE - POINT OF CARE Routine 05/27/20 1:10 PM CDT GLUCOSE - POINT OF CARE Routine 05/27/20 7:43 AM CDT HEMOGLOBIN ELECTROPHORESIS AM Draw 05/27/2024 6:59 AM CDT CBC W AUTO DIFFERENTIAL AM Draw 05/27/20 6:59 AM CDT RENAL FUNCTION PANEL AM Draw 05/27/2024 6:59 AM CDT VANCOMYCIN LEVEL RANDOM Routine 05/27/20 6:59 AM CDT GLUCOSE - POINT OF CARE Routine 05/26/20 8:12 PM CDT HEMODIALYSIS INPATIENT Routine 5:38 PM CDT GLUCOSE - POINT OF CARE Routine 05/26/20 3:34 PM CDT GLUCOSE - POINT OF CARE Routine 05/26/20 11:49 AM CDT GLUCOSE - POINT OF CARE Routine 05/26/20 7:40 AM CDT HEMOGLOBIN ELECTROPHORESIS AM Draw 05/26/2024 6:02 AM CDT CBC W AUTO DIFFERENTIAL AM Draw 05/26/20 6:02 AM CDT RENAL FUNCTION PANEL AM Draw 05/26/2024 6:02 AM CDT GLUCOSE - POINT OF CARE Routine 05/25/20 8:07 PM CDT GLUCOSE - POINT OF CARE Routine 05/25/20 4:36 PM CDT GLUCOSE - POINT OF CARE Routine 05/25/20 12:56 PM CDT HEMOGLOBIN A1C Routine 05/25/2024 6:43 AM CDT CBC W AUTO DIFFERENTIAL AM Draw 05/25/20 6:43 AM CDT RENAL FUNCTION PANEL AM Draw 05/25/2024 6:43 AM CDT GLUCOSE - POINT OF CARE Routine 05/24/20 8:55 PM CDT GLUCOSE - POINT OF CARE Routine 05/24/20 6:21 PM CDT HEMODIALYSIS INPATIENT Routine 4:19 PM CDT CULTURE FLUID+GRAM STAIN STAT 05/24/2024 3:06 PM CDT CULTURE ANAEROBE Routine 05/24/2024 3:06 PM CDT CRYSTAL INDENTIFICATION SYNOVIAL FLUID Routine 05/24/2024 3:05 PM CDT PATHOLOGY SMEAR BODY FLUID Routine 05/24/2024 3:05 PM CDT PATHOLOGY SMEAR BODY FLUID Routine 05/24/2024 3:05 PM CDT DIFFERENTIAL MANUAL FLUID Routine 05/24/2024 3:05 PM CDT CELL COUNT W DIFFERENTIAL FLUID Routine 05/24/2024 3:05 PM CDT XR SHOULDER LEFT 2VW OR MORE Routine 05/24/2024 1:36 PM CDT Osteomyelitis of left shoulder, unspecified type (HCC) GLUCOSE - POINT OF CARE Routine 05/24/20 11:46 AM CDT C-REACTIVE PROTEIN MONICA 05/24/2024 6: 25 AM CDT COMPREHENSIVE METABOLIC PANEL STAT 05/24/2024 6:25 AM CDT GLUCOSE - POINT OF CARE Routine 05/24/20 6:01 AM CDT ERYTHROCYTE SEDIMENTATION RATE STAT 05/24/2024 5:48 AM CDT CBC W/O DIFFERENTIAL STAT 05/24/2024 5:48 AM CDT VANCOMYCIN LEVEL RANDOM Routine 05/24/20 5:48 AM CDT documented in this encounter Results * (ABNORMAL) GLUCOSE - POINT OF CARE (06/03/2024 3:59 PM CDT) Glucose WB/POC 249(H) 70 - 115 mg/dL 06/03/2024 4:33 PM CDT [facility] Specimen Type Cap Fingerstick 2023 4:33 PM CDT [facility] Blood BLOOD SPECIMEN / Unknown 06/03/2024 3:59 PM CDT 06/03/2024 4:33 PM CDT Franck Hennessy MD LAB - POINT OF CARE ORDERABLES Performing Organization Address City/State/[facility] Co de Phone Number [facility] [address] [place] [phone], [facility] [phone] * (ABNORMAL) GLUCOSE - POINT OF CARE (06/03/2024 2:08 PM CDT) Glucose WB/POC 133(H) 70 - 115 mg/dL 06/03/2024 2:12 PM CDT [facility] Specimen Type Cap Fingerstick 2023 2:12 PM CDT [facility] Blood BLOOD SPECIMEN / Unknown 06/03/2024 2:08 PM CDT 06/03/2024 2:12 PM CDT Franck Hennessy MD LAB - POINT OF CARE ORDERABLES Performing Organization Address City/[facility]/ZIP Co de Phone Number [address] [address], [facility] [phone] * GLUCOSE - POINT OF CARE (06/03/2024 8:23 AM CDT) Pathologist [facility] Glucose WB/POC 101 70 - 115 mg/dL 06/03/2024 8:27 AM CDT [facility] Specimen Type Cap Fingerstick 2023 8:27 AM T [facility] Blood BLOOD SPECIMEN / Unknown 06/03/2024 8:23 AM CDT 06/03/2024 8:27 AM CDT Franck Hennessy MD LAB - POINT OF CARE ORDERABLES Performing Organization Address [facility]/ZIP Co de Phone Number [address] [address], [facility] [phone] * (ABNORMAL) CBC W AUTO DIFFERENTIAL (06/03/2024 12:09 AM CDT) [facility] WBC 8.5 4.0 - 10.7 x10E9/L 06/03/2024 1:31 AM [facility] RBC Count 3.49(L) 3.90 - 5.20 x10E12/L 06/03/2024 1:31 AM [facility] Hemoglobin 10.3(L) 11.9 - 15.8 g/dL 06/03/2024 1:31 AM [facility] Hematocrit 33.8(L) 34.8 - 46.1 % 06/03/2024 1:31 AM [facility] MCV 96.8 80.0 - 98.0 fL 06/03/2024 1:31 AM [facility] MCH 29.5 26.7 - 33.6 pg 06/03/2024 1:31 AM [facility] MCHC 30.5(L) 31.7 - 36.3 g/dL 06/03/2024 1:31 AM [facility] RDW-CV 14.9(H) 11.3 - 14.8 % 06/03/2024 1:31 AM [facility] Platelet Count 302 150 - 420 x10E9/L 06/03/2024 1:31 AM [facility] MPV 10.2 7.8 - 11.4 fL 06/03/2024 1:31 AM [facility] Neutrophil % 46.6 41.0 - 74.0 % 06/03/2024 1:31 AM [facility] Lymphocyte % 27.0 17.0 - 47.0 % 06/03/2024 1:31 AM [facility] Monocyte % 13.2(H) 3.0 - 11.0 % 06/03/2024 1:31 AM [facility] Eosinophil % 12.1(H) 0.0 - 7.0 % 06/03/2024 1:31 AM [facility] Basophil % 0.7 0.0 - 1.6 % 06/03/2024 1:31 AM [facility] Immature Granulocytes % 0.4 0.0 - 1.0 % 06/03/2024 1:31 AM [facility] Neutrophil Absolute 3.95 1.60 - 7.50 x10E9/L 06/03/2024 1:31 AM [facility] Lymphocyte Absolute 2.29 1.00 - 4.40 x10E9/L 06/03/2024 1:31 AM [facility] Monocyte Absolute 1.12(H) 0.15 - 1.00 x10E9/L 06/03/2024 1:31 AM [facility] Eosinophil Absolute 1.03(H) 0.00 - 0.60 x10E9/L 06/03/2024 1:31 AM [facility] Basophil Absolute 0.06 0.00 - 0.13 x10E9/L 06/03/2024 1:31 AM [facility] Blood BLOOD SPECIMEN / Unknown Venipuncture / Unknown 06/03/2024 12:09 AM CDT 06/03/2024 1:28 AM T Noe Rabago MD LAB - HEMATOLOGY ORD ERABLES [facility] [address] [place] [address], [facility] [phone] * (ABNORMAL) RENAL FUNCTION PANEL (06/03/2024 12:09 AM [facility]) BUN 38(H) 7 - 26 mg/dL 06/03/2024 1:56 AM [facility] Creatinine 5.40(H) 0.56 - 0.96 mg/dL 06/03/2024 1:56 AM [facility] Sodium 138 136 - 145 mmol/L 06/03/2024 1:56 AM [facility] Potassium 5.7(H) 3.5 - 4.5 mmol/L 06/03/2024 1:56 AM [facility] Chloride 102 98 - 107 mmol/L 06/03/2024 1:56 AM [facility] CO2 28 22 - 29 mmol/L 06/03/2024 1:56 AM [facility] Glucose 195(H) 70 - 115 mg/dL 06/03/2024 1:56 AM [facility] Albumin 2.1(L) 3.4 - 5.0 g/dL 06/03/2024 1:56 AM [facility] Calcium 9.3 8.4 - 10.2 mg/dL 06/03/2024 1:56 AM [facility] Phosphorus 4.5 2.9 - 5.1 mg/dL 06/03/2024 1:56 AM [facility] Anion Gap 8 6 - 16 06/03/2024 1:56 AM [facility] BUN/Creatinine Ratio 7 7 - 23 06/03/2024 1:56 AM [facility] Osmolality Calculated 300(H) 275 - 295 mOsm/kg 06/03/2024 1:56 AM [facility] eGFR by CKD-EPI 10(L) >=90 mL/min/1.7 3 m2 06/03/2024 1:56 AM [facility] Blood BLOOD SPECIMEN / Unknown Venipuncture / Unknown 06/03/2024 12:09 AM CDT 06/03/2024 1:30 AM CDT Noe Rabago MD LAB - CHEMISTRY [facility] [address] [address], [place] [phone] * (ABNORMAL) GLUCOSE - POINT OF CARE (06/02/2024 10:16 PM CDT) Glucose WB/POC 167(H) 70 - 115 mg/dL 06/02/2024 10:25 PM CDT [facility] Specimen Type Cap Fingerstick 2023 10:25 PM CDT [facility] Blood BLOOD SPECIMEN / Unknown 06/02/2024 10:16 PM CDT 06/02/2024 10:25 PM CDT Rob Cruz MD LAB - POINT OF CARE ORDERABLES Performing Organization Address City/[facility]/ZIP Co de Phone Number [address] [address], [place] [phone] * (ABNORMAL) GLUCOSE - POINT OF CARE (06/02/2024 5:04 PM CDT) Glucose WB/POC 117(H) 70 - 115 mg/dL 06/02/2024 6:28 PM CDT [facility] Specimen Type Arterial 06/02/2024 6:28 PM CDT [facility] Blood BLOOD SPECIMEN / Unknown 06/02/2024 5:04 PM CDT 06/02/2024 6:28 PM CDT Rob Cruz MD LAB - POINT OF CARE ORDERABLES [address] [address], [place] [phone] * (ABNORMAL) GLUCOSE - POINT OF CARE (06/02/2024 11:30 AM CDT) Glucose WB/POC 220(H) 70 - 115 mg/dL 06/02/2024 4:45 PM CDT [facility] Specimen Type Arterial 06/02/2024 4:45 PM CDT [facility] Blood BLOOD SPECIMEN / Unknown 06/02/2024 11:30 AM CDT 06/02/2024 4:45 PM CDT Rob Cruz MD LAB - POINT OF CARE ORDERABLES [facility] [address] [place] [address], [place] [phone] * (ABNORMAL) GLUCOSE - POINT OF CARE (06/02/2024 8:17 AM CDT) Glucose WB/POC 252(H) 70 - 115 mg/dL 06/02/2024 4:45 PM CDT [facility] Specimen Type Arterial 06/02/2024 4:45 PM CDT [facility] Blood BLOOD SPECIMEN / Unknown 06/02/2024 8:17 AM CDT 06/02/2024 4:45 PM CDT Rob Cruz MD LAB - POINT OF CARE ORDERABLES [facility] [address] [place] [address], [place] [phone] * (ABNORMAL) CBC W AUTO DIFFERENTIAL (06/02/2024 5:52 AM CDT) WBC 8.1 4.0 - 10.7 x10E9/L 06/02/2024 7:22 AM [facility] RBC Count 3.55(L) 3.90 - 5.20 x10E12/L 06/02/2024 7:22 AM [facility] Hemoglobin 10.4(L) 11.9 - 15.8 g/dL 06/02/2024 7:22 AM [facility] Hematocrit 34.4(L) 34.8 - 46.1 % 06/02/2024 7:22 AM [facility] MCV 96.9 80.0 - 98.0 fL 06/02/2024 7:22 AM [facility] MCH 29.3 26.7 - 33.6 pg 06/02/2024 7:22 AM [facility] MCHC 30.2(L) 31.7 - 36.3 g/dL 06/02/2024 7:22 AM [facility] RDW-CV 14.8 11.3 - 14.8 % 06/02/2024 7:22 AM [facility] Platelet Count 303 150 - 420 x10E9/L 06/02/2024 7:22 AM [facility] MPV 10.1 7.8 - 11.4 fL 06/02/2024 7:22 AM [facility] Neutrophil % 59.5 41.0 - 74.0 % 06/02/2024 7:22 AM [facility] Lymphocyte % 19.9 17.0 - 47.0 % 06/02/2024 7:22 AM [facility] Monocyte % 9.1 3.0 - 11.0 % 06/02/2024 7:22 AM [facility] Eosinophil % 10.9(H) 0.0 - 7.0 % 06/02/2024 7:22 AM [facility] Basophil % 0.4 0.0 - 1.6 % 06/02/2024 7:22 AM [facility] Immature Granulocytes % 0.2 0.0 - 1.0 % 06/02/2024 7:22 AM [facility] Neutrophil Absolute 4.79 1.60 - 7.50 x10E9/L 06/02/2024 7:22 AM [facility] Lymphocyte Absolute 1.60 1.00 - 4.40 x10E9/L 06/02/2024 7:22 AM [facility] Monocyte Absolute 0.73 0.15 - 1.00 x10E9/L 06/02/2024 7:22 AM [facility] Eosinophil Absolute 0.88(H) 0.00 - 0.60 x10E9/L 06/02/2024 7:22 AM [facility] Basophil Absolute 0.03 0.00 - 0.13 x10E9/L 06/02/2024 7:22 AM [facility] Blood BLOOD SPECIMEN / Unknown Lab Venipuncture / Unknown 06/02/2024 5:52 AM CDT 06/02/2024 7:02 AM CDT Noe Rabago MD LAB - HEMATOLOGY ORD ERABLES Performing Organization Address City/[facility]/ZIP Co de Phone Number [facility] [address] [place] [address], [facility] [phone] * (ABNORMAL) RENAL FUNCTION PANEL (06/02/2024 5:52 AM CDT) BUN 33(H) 7 - 26 mg/dL 06/02/2024 7:32 AM [facility] Creatinine 4.74(H) 0.56 - 0.96 mg/dL 06/02/2024 7:32 AM [facility] Sodium 136 136 - 145 mmol/L 06/02/2024 7:32 AM [facility] Potassium 5.2(H) 3.5 - 4.5 mmol/L 06/02/2024 7:32 AM [facility] Chloride 102 98 - 107 mmol/L 06/02/2024 7:32 AM [facility] CO2 28 22 - 29 mmol/L 06/02/2024 7:32 AM [facility] Glucose 159(H) 70 - 115 mg/dL 06/02/2024 7:32 AM [facility] Albumin 2.1(L) 3.4 - 5.0 g/dL 06/02/2024 7:32 AM [facility] Calcium 8.9 8.4 - 10.2 mg/dL 06/02/2024 7:32 AM [facility] Phosphorus 4.3 2.9 - 5.1 mg/dL 06/02/2024 7:32 AM [facility] Anion Gap 6 6 - 16 06/02/2024 7:32 AM [facility] BUN/Creatinine Ratio 7 7 - 23 06/02/2024 7:32 AM [facility] Osmolality Calculated 293 275 - 295 mOsm/kg 06/02/2024 7:32 AM [facility] eGFR by CKD-EPI 12(L) >=90 mL/min/1.7 3 m2 06/02/2024 7:32 AM CDT [facility] Blood BLOOD SPECIMEN / Unknown Lab Venipuncture / Unknown 06/02/2024 5:52 AM CDT 06/02/2024 7:02 AM CDT Noe Rabago MD LAB - CHEMISTRY [facility] Performing Organization Address City/[facility]/ZIP Co de Phone Number [address] [address], [facility] [phone] * (ABNORMAL) FERRITIN (06/02/2024 5:52 AM CDT) Ferritin 484(H) 13 - 204 ng/mL 06/02/2024 8:19 AM CDT [facility] Blood BLOOD SPECIMEN / Unknown Lab Venipuncture / Unknown 06/02/2024 5:52 AM CDT 06/02/2024 6:49 AM CDT Rob Cruz MD LAB - CHEMISTRY DIVINA OLVERA Performing Organization Address [facility]/ZIP Co de Phone Number [address] [address], [place] [phone] * (ABNORMAL) IRON + TRANSFERRIN PANEL (06/02/2024 5:52 AM CDT) Iron 42 40 - 150 ug/dL 06/02/2024 8:03 AM CDT [facility] Transferrin 166(L) 174 - 382 mg/dL 06/02/2024 8:03 AM CDT [facility] Transferrin Saturation % 20 16 - 50 % 06/02/2024 8:03 AM CDT [facility] TIBC Calculated 208(L) 240 - 450 ug/dL 06/02/2024 8:03 AM CDT [facility] Blood BLOOD SPECIMEN / Unknown Lab Venipuncture / Unknown 06/02/2024 5:52 AM CDT 06/02/2024 6:49 AM CDT Rob Cruz MD LAB - CHEMISTRY [facility]INA OLVERA [address] [address], [place] [phone] * (ABNORMAL) GLUCOSE - POINT OF CARE (06/01/2024 9:05 PM CDT) Glucose WB/POC 191(H) 70 - 115 mg/dL 06/02/2024 7:56 AM CDT [facility] Specimen Type Cap Fingerstick 2023 7:56 AM CDT [facility] Blood BLOOD SPECIMEN / Unknown 06/01/2024 9:05 PM CDT 06/02/2024 7:56 AM CDT Rob Cruz MD LAB - POINT OF CARE ORDERABLES [address] [address], [place] [phone] * GLUCOSE - POINT OF CARE (06/01/2024 3:27 PM CDT) Glucose WB/POC 70 70 - 115 mg/dL 06/01/2024 3:31 PM CDT [facility] Specimen Type Arterial 06/01/2024 3:31 PM CDT [facility] Blood BLOOD SPECIMEN / Unknown 06/01/2024 3:27 PM CDT 06/01/2024 3:31 PM CDT Rob Cruz MD LAB - POINT OF CARE ORDERABLES [address] [address], [place] [phone] * GLUCOSE - POINT OF CARE (06/01/2024 7:49 AM CDT) Glucose WB/POC 105 70 - 115 mg/dL 06/01/2024 3:31 PM CDT [facility] Specimen Type Arterial 06/01/2024 3:31 PM [facility] Blood BLOOD SPECIMEN / Unknown 06/01/2024 7:49 AM CDT 06/01/2024 3:31 PM CDT Rob Cruz MD LAB - POINT OF CARE ORDERABLES [facility] [address] [place] [address], [facility] [phone] * (ABNORMAL) CBC W AUTO DIFFERENTIAL (06/01/2024 4:42 AM CDT) Pathologist [facility] [place] WBC 8.8 4.0 - 10.7 x10E9/L 06/01/2024 5:26 AM [facility] RBC Count 3.29(L) 3.90 - 5.20 x10E12/L 06/01/2024 5:26 AM [facility] Hemoglobin 9.7(L) 11.9 - 15.8 g/dL 06/01/2024 5:26 AM [facility] Hematocrit 32.6(L) 34.8 - 46.1 % 06/01/2024 5:26 AM [facility] MCV 99.1(H) 80.0 - 98.0 fL 06/01/2024 5:26 AM [facility] MCH 29.5 26.7 - 33.6 pg 06/01/2024 5:26 AM [facility] MCHC 29.8(L) 31.7 - 36.3 g/dL 06/01/2024 5:26 AM [facility] RDW-CV 15.1(H) 11.3 - 14.8 % 06/01/2024 5:26 AM [facility] Platelet Count 305 150 - 420 x10E9/L 06/01/2024 5:26 AM [facility] MPV 9.9 7.8 - 11.4 fL 06/01/2024 5:26 AM [facility] Neutrophil % 50.2 41.0 - 74.0 % 06/01/2024 5:26 AM [facility] Lymphocyte % 27.8 17.0 - 47.0 % 06/01[facility]24 5[facility] Monocyte % 10.6 3.0 - 11.0 % 06/01/2024 5:26 AM [facility] Eosinophil % 10.6(H) 0.0 - 7.0 % 06/01/2024 5:26 AM [facility] Basophil % 0.5 0.0 - 1.6 % 06/01/2024 5:26 AM [facility] Immature Granulocytes % 0.3 0.0 - 1.0 % 06/01/2024 5:26 AM [facility] Neutrophil Absolute 4.43 1.60 - 7.50 x10E9/L 06/01/2024 5:26 AM [facility] Lymphocyte Absolute 2.46 1.00 - 4.40 x10E9/L 06/01/2024 5:26 AM [facility] Monocyte Absolute 0.94 0.15 - 1.00 x10E9/L 06/01/2024 5:26 AM [facility] Eosinophil Absolute 0.94(H) 0.00 - 0.60 x10E9/L 06/01/2024 5:26 AM [facility] Basophil Absolute 0.04 0.00 - 0.13 x10E9/L 06/01/2024 5:26 AM [facility] Blood BLOOD SPECIMEN / Unknown Lab Venipuncture / Unknown 06/01/2024 4:42 AM CDT 06/01/2024 5:17 AM CDT Noe Rabago MD LAB - HEMATOLOGY ORD ERABLES [facility] [address] [place] [address], [facility] [phone] * (ABNORMAL) RENAL FUNCTION PANEL (06/01/2024 4:42 AM CDT) BUN 43(H) 7 - 26 mg/dL 06/01/2024 5:43 AM T [facility] Creatinine 5.83(H) 0.56 - 0.96 mg/dL 06/01/2024 5:43 AM [facility] Sodium 135(L) 136 - 145 mmol/L 06/01/2024 5:43 AM [facility] Potassium 5.0(H) 3.5 - 4.5 mmol/L 06/01/2024 5:43 AM [facility] Chloride 102 98 - 107 mmol/L 06/01/2024 5:43 AM [facility] CO2 26 22 - 29 mmol/L 06/01/2024 5:43 AM [facility] Glucose 146(H) 70 - 115 mg/dL 06/01/2024 5:43 AM [facility] Albumin 1.9(L) 3.4 - 5.0 g/dL 06/01/2024 5:43 AM [facility] Calcium 8.3(L) 8.4 - 10.2 mg/dL 06/01/2024 5:43 AM [facility] Phosphorus 5.6(H) 2.9 - 5.1 mg/dL 06/01/2024 5:43 AM [facility] Anion Gap 7 6 - 16 06/01/2024 5:43 AM [facility] BUN/Creatinine Ratio 7 7 - 23 06/01/2024 5:43 AM [facility] Osmolality Calculated 293 275 - 295 mOsm/kg 06/01/2024 5:43 AM [facility] eGFR by CKD-EPI 9(L) >=90 mL/min/1.7 3 m2 06/01/2024 5:43 AM [facility] Blood BLOOD SPECIMEN / Unknown Lab Venipuncture / Unknown 06/01/2024 4:42 AM CDT 06/01/2024 5:16 AM T Noe Rabago MD LAB - CHEMISTRY DIVINA OLVERA [facility] Organization Address City/State/ZIP Co de Phone Number [facility] [address] [place] [phone], [facility] [phone] * VANCOMYCIN LEVEL RANDOM (06/01/2024 4:42 AM CDT) Vancomycin Random 18.3 Therapeutic Ranges not established for random specimens ug/mL 06/01/2024 5:35 AM CDT [facility] Blood BLOOD SPECIMEN / Unknown Lab Venipuncture / Unknown 06/01/2024 4:42 AM CDT 06/01/2024 5:09 AM CDT Narrative [facility] - 06/01/2024 5:35 AM CDT See institution protocol. Hunter Chin III, MD LAB - CHEMISTRY ORDERABLES Performing Organization Address City/[facility]/ZIP Co de Phone Number [address] [address], [place] [phone] * (ABNORMAL) GLUCOSE - POINT OF CARE (05/31/2024 8:08 PM CDT) [facility] Glucose WB/POC 200(H) 70 - 115 mg/dL 05/31/2024 8:29 PM CDT [facility] Specimen Type Cap Fingerstick 2023 8:29 PM CDT [facility] Blood BLOOD SPECIMEN / Unknown 05/31/2024 8:08 PM CDT 05/31/2024 8:29 PM CDT Hunter Chin III, MD LAB - POINT OF CARE ORDERABLES Performing Organization Address [facility] Co de Phone Number [address] [address], [place] [phone] * HEPATITIS C AB SCREEN RFLX NAAT QUANT (05/31/2024 6:38 PM CDT) [facility] Hepatitis C Antibody Non-react talia Non-reac tive [...] Chin III, MD LAB - CHEMISTRY ORDERABLES [address] [address], [place] [phone] * (ABNORMAL) GLUCOSE - POINT OF CARE (05/31/2024 5:17 PM CDT) Glucose WB/POC 125(H) 70 - 115 mg/dL 05/31/2024 5:28 PM CDT [facility] Specimen Type Arterial 05/31/2024 5:28 PM CDT [facility] Blood BLOOD SPECIMEN / Unknown 05/31/2024 5:17 PM CDT 05/31/2024 5:28 PM CDT Hunter Chin III, MD LAB - POINT OF CARE ORDERABLES [address] [address], [place] [phone] * (ABNORMAL) GLUCOSE - POINT OF CARE (05/31/2024 11:39 AM CDT) Glucose WB/POC 163(H) 70 - 115 mg/dL 05/31/2024 5:28 PM CDT [facility] Specimen Type Arterial 05/31/2024 5:28 PM CDT [facility] Blood BLOOD SPECIMEN / Unknown 05/31/2024 11:39 AM CDT 05/31/2024 5:28 PM CDT Hunter Chin III, MD LAB - POINT OF CARE ORDERABLES [address] [address], [place] [phone] * (ABNORMAL) GLUCOSE - POINT OF CARE (05/31/2024 8:19 AM CDT) Glucose WB/POC 133(H) 70 - 115 mg/dL 05/31/2024 8:27 AM [facility] Specimen Type Cap Fingerstick 2023 8:27 AM [facility] Blood BLOOD SPECIMEN / Unknown 05/31/2024 8:19 AM CDT 05/31/2024 8:27 AM CDT Hunter Chin III, MD LAB - POINT OF CARE ORDERABLES Performing Organization Address City/State/[facility] Co de Phone Number [facility] [address] [place] [address], [facility] [phone] * (ABNORMAL) CBC W AUTO DIFFERENTIAL (05/31/2024 6:05 AM CDT) WBC 8.9 4.0 - 10.7 x10E9/L 05/31/2024 6:59 AM [facility] RBC Count 3.41(L) 3.90 - 5.20 x10E12/L 05/31/2024 6:59 AM [facility] Hemoglobin 10.1(L) 11.9 - 15.8 g/dL 05/31/2024 6:59 AM [facility] Hematocrit 33.5(L) 34.8 - 46.1 % 05/31/2024 6:59 AM [facility] MCV 98.2(H) 80.0 - 98.0 fL 05/31/2024 6:59 AM [facility] MCH 29.6 26.7 - 33.6 pg 05/31/2024 6:59 AM [facility] MCHC 30.1(L) 31.7 - 36.3 g/dL 05/31/2024 6:59 AM [facility] RDW-CV 15.5(H) 11.3 - 14.8 % 05/31/2024 6:59 AM [facility] Platelet Count 279 150 - 420 x10E9/L 05/31/2024 6:59 AM [facility] MPV 10.2 7.8 - 11.4 fL 05/31/2024 6:59 AM [facility] Neutrophil % 52.1 41.0 - 74.0 % 05/31/2024 6:59 AM [facility] Lymphocyte % 27.3 17.0 - 47.0 % 05/31/2024 6:59 AM [facility] Monocyte % 10.1 3.0 - 11.0 % 05/31/2024 6:59 AM [facility] Eosinophil % 9.9(H) 0.0 - 7.0 % 05/31/2024 6:59 AM [facility] Basophil % 0.3 0.0 - 1.6 % 05/31/2024 6:59 AM [facility] Immature Granulocytes % 0.3 0.0 - 1.0 % 05/31/2024 6:59 AM [facility] Neutrophil Absolute 4.60 1.60 - 7.50 x10E9/L 05/31/2024 6:59 AM [facility] Lymphocyte Absolute 2.42 1.00 - 4.40 x10E9/L 05/31/2024 6:59 AM [facility] Monocyte Absolute 0.89 0.15 - 1.00 x10E9/L 05/31/2024 6:59 AM [facility] Eosinophil Absolute 0.88(H) 0.00 - 0.60 x10E9/L 05/31/2024 6:59 AM [facility] Basophil Absolute 0.03 0.00 - 0.13 x10E9/L 05/31/2024 6:59 AM [facility] Blood BLOOD SPECIMEN / Unknown Lab Venipuncture / Unknown 05/31/2024 6:05 AM CDT 05/31/2024 6:48 AM CDT Noe Rabago MD LAB - HEMATOLOGY ORD ERABLES [facility] [address] [place] [phone], [facility] [phone] * (ABNORMAL) RENAL FUNCTION PANEL (05/31/2024 6:05 AM CDT) BUN 37(H) 7 - 26 mg/dL 05/31/2024 7:20 AM CDT [facility] Creatinine 5.07(H) 0.56 - 0.96 mg/dL 05/31/2024 7:20 AM [facility] Sodium 136 136 - 145 mmol/L 05/31/2024 7:20 AM [facility] Potassium 4.6(H) 3.5 - 4.5 mmol/L 05/31/2024 7:20 AM [facility] Chloride 101 98 - 107 mmol/L 05/31/2024 7:20 AM [facility] CO2 29 22 - 29 mmol/L 05/31/2024 7:20 AM [facility] Glucose 166(H) 70 - 115 mg/dL 05/31/2024 7:20 AM [facility] Albumin 2.0(L) 3.4 - 5.0 g/dL 05/31/2024 7:20 AM [facility] Calcium 8.2(L) 8.4 - 10.2 mg/dL 05/31/2024 7:20 AM [facility] Phosphorus 5.4(H) 2.9 - 5.1 mg/dL 05/31/2024 7:20 AM [facility] Anion Gap 6 6 - 16 05/31/2024 7:20 AM [facility] BUN/Creatinine Ratio 7 7 - 23 05/31/2024 7:20 AM [facility] Osmolality Calculated 294 275 - 295 mOsm/kg 05/31/2024 7:20 AM [facility] eGFR by CKD-EPI 11(L) >=90 mL/min/1.7 3 m2 05/31/2024 7:20 AM [facility] Blood BLOOD SPECIMEN / Unknown Lab Venipuncture / Unknown 05/31/2024 6:05 AM CDT 05/31/2024 6:48 AM T Noe Rabago MD LAB - CHEMISTRY DIVINA OLVERA [facility] Organization Address City/State/ZIP Co de Phone Number [facility] [address] [place] [address], [facility] [phone] * (ABNORMAL) GLUCOSE - POINT OF CARE (05/30/2024 8:25 PM CDT) Glucose WB/POC 126(H) 70 - 115 mg/dL 05/30/2024 8:27 PM CDT [facility] Specimen Type Cap Fingerstick 2023 8:27 PM CDT [facility] Blood BLOOD SPECIMEN / Unknown 05/30/2024 8:25 PM CDT 05/30/2024 8:27 PM CDT Hunter Chin III, MD LAB - POINT OF CARE ORDERABLES Performing Organization Address City/[facility]/ZIP Co de Phone Number [address] [address], [place] [phone] * (ABNORMAL) GLUCOSE - POINT OF CARE (05/30/2024 4:18 PM CDT) Glucose WB/POC 233(H) 70 - 115 mg/dL 05/30/2024 4:22 PM CDT [facility] Specimen Type Cap Fingerstick 2023 4:22 PM CDT [facility] Blood BLOOD SPECIMEN / Unknown 05/30/2024 4:18 PM CDT 05/30/2024 4:22 PM CDT Hunter Chin III, MD LAB - POINT OF CARE ORDERABLES Performing Organization Address [facility]/ZIP Co de Phone Number [address] [address], [place] [phone] * (ABNORMAL) GLUCOSE - POINT OF CARE (05/30/2024 12:42 PM CDT) Glucose WB/POC 132(H) 70 - 115 mg/dL 05/30/2024 12:46 PM CDT [facility] Specimen Type Cap Fingerstick 2023 12:46 PM CDT [facility] Blood BLOOD SPECIMEN / Unknown 05/30/2024 12:42 PM CDT 05/30/2024 12:46 PM CDT Hunter Chin III, MD LAB - POINT OF CARE ORDERABLES Performing Organization Address City/[facility]/ZIP Co de Phone Number [facility] [address] [place] [phone], [place] [phone] * GLUCOSE - POINT OF CARE (05/30/2024 8:24 AM CDT) Pathologist [facility] Glucose WB/POC 110 70 - 115 mg/dL 05/30/2024 8:28 AM T [facility] Specimen Type Cap Fingerstick 2023 8:28 AM T [facility] Blood BLOOD SPECIMEN / Unknown 05/30/2024 8:24 AM CDT 05/30/2024 8:28 AM CDT Hunter Chin III, MD LAB - POINT OF CARE ORDERABLES Performing Organization Address [facility] Co de Phone Number [address] [address], [facility] [phone] * (ABNORMAL) CBC W AUTO DIFFERENTIAL (05/30/2024 4:52 AM CDT) [facility] WBC 9.3 4.0 - 10.7 x10E9/L 05/30/2024 5:38 AM [facility] RBC Count 3.62(L) 3.90 - 5.20 x10E12/L 05/30/2024 5:38 AM [facility] Hemoglobin 10.6(L) 11.9 - 15.8 g/dL 05/30/2024 5:38 AM [facility] Hematocrit 35.7 34.8 - 46.1 % 05/30/2024 5:38 AM [facility] MCV 98.6(H) 80.0 - 98.0 fL 05/30/2024 5:38 AM [facility] MCH 29.3 26.7 - 33.6 pg 05/30/2024 5:38 AM [facility] MCHC 29.7(L) 31.7 - 36.3 g/dL 05/30/2024 5:38 AM [facility] RDW-CV 15.4(H) 11.3 - 14.8 % 05/30/2024 5:38 AM [facility] Platelet Count 308 150 - 420 x10E9/L 05/30/2024 5:38 AM [facility] MPV 10.0 7.8 - 11.4 fL 05/30/2024 5:38 AM [facility] Neutrophil % 55.1 41.0 - 74.0 % 05/30/2024 5:38 AM [facility] Lymphocyte % 25.4 17.0 - 47.0 % 05/30/2024 5:38 AM [facility] Monocyte % 10.0 3.0 - 11.0 % 05/30/2024 5:38 AM [facility] Eosinophil % 8.7(H) 0.0 - 7.0 % 05/30/2024 5:38 AM [facility] Basophil % 0.4 0.0 - 1.6 % 05/30/2024 5:38 AM [facility] Immature Granulocytes % 0.4 0.0 - 1.0 % 05/30/2024 5:38 AM [facility] Neutrophil Absolute 5.11 1.60 - 7.50 x10E9/L 05/30/2024 5:38 AM [facility] Lymphocyte Absolute 2.36 1.00 - 4.40 x10E9/L 05/30/2024 5:38 AM [facility] Monocyte Absolute 0.93 0.15 - 1.00 x10E9/L 05/30/2024 5:38 AM [facility] Eosinophil Absolute 0.81(H) 0.00 - 0.60 x10E9/L 05/30/2024 5:38 AM [facility] Basophil Absolute 0.04 0.00 - 0.13 x10E9/L 05/30/2024 5:38 AM [facility] Blood BLOOD SPECIMEN / Unknown Lab Venipuncture / Unknown 05/30/2024 4:52 AM CDT 05/30/2024 5:30 AM T Noe Rabago MD LAB - HEMATOLOGY ORD ERABLES [facility] [address] [place] [address], [facility] [phone] * (ABNORMAL) RENAL FUNCTION PANEL (05/30/2024 4:52 AM [facility]) BUN 28(H) 7 - 26 mg/dL 05/30/2024 6:02 AM [facility] Creatinine 3.67(H) 0.56 - 0.96 mg/dL 05/30/2024 6:02 AM [facility] Sodium 137 136 - 145 mmol/L 05/30/2024 6:02 AM [facility] Potassium 4.4 3.5 - 4.5 mmol/L 05/30/2024 6:02 AM [facility] Chloride 102 98 - 107 mmol/L 05/30/2024 6:02 AM [facility] CO2 29 22 - 29 mmol/L 05/30/2024 6:02 AM [facility] Glucose 114 70 - 115 mg/dL 05/30/2024 6:02 AM [facility] Albumin 2.0(L) 3.4 - 5.0 g/dL 05/30/2024 6:02 AM [facility] Calcium 8.4 8.4 - 10.2 mg/dL 05/30/2024 6:02 AM [facility] Phosphorus 4.5 2.9 - 5.1 mg/dL 05/30/2024 6:02 AM [facility] Anion Gap 6 6 - 16 05/30/2024 6:02 AM [facility] BUN/Creatinine Ratio 8 7 - 23 05/30/2024 6:02 AM [facility] Osmolality Calculated 290 275 - 295 mOsm/kg 05/30/2024 6:02 AM [facility] eGFR by CKD-EPI 16(L) >=90 mL/min/1.7 3 m2 05/30/2024 6:02 AM [facility] Blood BLOOD SPECIMEN / Unknown Lab Venipuncture / Unknown 05/30/2024 4:52 AM CDT 05/30/2024 5:34 AM CDT Noe Rabago MD LAB - CHEMISTRY DIVINA OLVERA [address] [address], [place] [phone] * (ABNORMAL) GLUCOSE - POINT OF CARE (05/29/2024 8:04 PM CDT) Glucose WB/POC 128(H) 70 - 115 mg/dL 05/29/2024 8:07 PM CDT [facility] Specimen Type Cap Fingerstick 2023 8:07 PM CDT [facility] Blood BLOOD SPECIMEN / Unknown 05/29/2024 8:04 PM CDT 05/29/2024 8:07 PM CDT Hunter Chin III, MD LAB - POINT OF CARE ORDERABLES Performing Organization Address City/[facility]/ZIP Co de Phone Number [address] [address], [place] [phone] * (ABNORMAL) GLUCOSE - POINT OF CARE (05/29/2024 4:53 PM CDT) Glucose WB/POC 184(H) 70 - 115 mg/dL 05/29/2024 8:09 PM CDT [facility] Specimen Type Arterial 05/29/2024 8:09 PM CDT [facility] Blood BLOOD SPECIMEN / Unknown 05/29/2024 4:53 PM CDT 05/29/2024 8:09 PM CDT Hunter Chin III, MD LAB - POINT OF CARE ORDERABLES [address] [address], [place] [phone] * (ABNORMAL) GLUCOSE - POINT OF CARE (05/29/2024 1:37 PM CDT) Glucose WB/POC 194(H) 70 - 115 mg/dL 05/29/2024 1:42 PM CDT [facility] Specimen Type Cap Fingerstick 2023 1:42 PM CDT [facility] Blood BLOOD SPECIMEN / Unknown 05/29/2024 1:37 PM CDT 05/29/2024 1:42 PM CDT Hunter Chin III, MD LAB - POINT OF CARE ORDERABLES [address] [address], [place] [phone] * (ABNORMAL) GLUCOSE - POINT OF CARE (05/29/2024 10:28 AM CDT) Glucose WB/POC 141(H) 70 - 115 mg/dL 06/05/2024 7:07 AM CDT [facility] Specimen Type Venous 06/05/2024 7:07 AM CDT [facility] Blood BLOOD SPECIMEN / Unknown 05/29/2024 10:28 AM CDT 06/05/2024 7:07 AM CDT Hunter Chin III, MD LAB - POINT OF CARE ORDERABLES Performing Organization Address City/[facility]/ZIP Co de Phone Number [address] [address], [place] [phone] * (ABNORMAL) GLUCOSE - POINT OF CARE (05/29/2024 7:34 AM CDT) Glucose WB/POC 163(H) 70 - 115 mg/dL 05/29/2024 7:39 AM CDT [facility] Specimen Type Cap Fingerstick 2023 7:39 AM CDT [facility] Blood BLOOD SPECIMEN / Unknown 05/29/2024 7:34 AM CDT 05/29/2024 7:39 AM CDT Hunter Chin III, MD LAB - POINT OF CARE ORDERABLES Performing Organization Address City/[facility]/ZIP Co de Phone Number [address] [address], [place] [phone] * (ABNORMAL) CBC W AUTO DIFFERENTIAL (05/29/2024 4:08 AM [facility]) [facility] Signature WBC 7.7 4.0 - 10.7 x10E9/L 05/29/2024 4:40 AM [facility] RBC Count 3.67(L) 3.90 - 5.20 x10E12/L 05/29/2024 4:40 AM [facility] Hemoglobin 10.8(L) 11.9 - 15.8 g/dL 05/29/2024 4:40 AM [facility] Hematocrit 36.1 34.8 - 46.1 % 05/29/2024 4:40 AM [facility] MCV 98.4(H) 80.0 - 98.0 fL 05/29/2024 4:40 AM [facility] MCH 29.4 26.7 - 33.6 pg 05/29/2024 4:40 AM [facility] MCHC 29.9(L) 31.7 - 36.3 g/dL 05/29/2024 4:40 AM [facility] RDW-CV 15.4(H) 11.3 - 14.8 % 05/29/2024 4:40 AM [facility] Platelet Count 337 150 - 420 x10E9/L 05/29/2024 4:40 AM [facility] MPV 9.8 7.8 - 11.4 fL 05/29/2024 4:40 AM [facility] Neutrophil % 53.9 41.0 - 74.0 % 05/29/2024 4:40 AM [facility] Lymphocyte % 26.8 17.0 - 47.0 % 05/29/2024 4:40 AM [facility] Monocyte % 10.7 3.0 - 11.0 % 05/29/2024 4:40 AM [facility] Eosinophil % 7.9(H) 0.0 - 7.0 % 05/29/2024 4:40 AM [facility] Basophil % 0.4 0.0 - 1.6 % 05/29/2024 4:40 AM [facility] Immature Granulocytes % 0.3 0.0 - 1.0 % 05/29/2024 4:40 AM [facility] Neutrophil Absolute 4.14 1.60 - 7.50 x10E9/L 05/29/2024 4:40 AM [facility] Lymphocyte Absolute 2.06 1.00 - 4.40 x10E9/L 05/29/2024 4:40 AM [facility] Monocyte Absolute 0.82 0.15 - 1.00 x10E9/L 05/29/2024 4:40 AM [facility] Eosinophil Absolute 0.61(H) 0.00 - 0.60 x10E9/L 05/29/2024 4:40 AM [facility] Basophil Absolute 0.03 0.00 - 0.13 x10E9/L 05/29/2024 4:40 AM [facility] Blood BLOOD SPECIMEN / Unknown Lab Venipuncture / Unknown 05/29/2024 4:08 AM CDT 05/29/2024 4:31 AM CDT Noe Rabago MD LAB - HEMATOLOGY ORD ERABLES [facility] [address] [place] [phone], [facility] [phone] * (ABNORMAL) RENAL FUNCTION PANEL (05/29/2024 4:08 AM CDT) BUN 43(H) 7 - 26 mg/dL 05/29/2024 5:04 AM [facility] Creatinine 4.81(H) 0.56 - 0.96 mg/dL 05/29/2024 5:04 AM [facility] Sodium 138 136 - 145 mmol/L 05/29/2024 5:04 AM [facility] Potassium 4.8(H) 3.5 - 4.5 mmol/L 05/29/2024 5:04 AM [facility] Chloride 104 98 - 107 mmol/L 05/29/2024 5:04 AM [facility] CO2 25 22 - 29 mmol/L 05/29/2024 5:04 AM [facility] Glucose 114 70 - 115 mg/dL 05/29/2024 5:04 AM [facility] Albumin 2.2(L) 3.4 - 5.0 g/dL 05/29/2024 5:04 AM [facility] Calcium 8.4 8.4 - 10.2 mg/dL 05/29/2024 5:04 AM [facility] Phosphorus 6.2(H) 2.9 - 5.1 mg/dL 05/29/2024 5:04 AM [facility] Anion Gap 9 6 - 16 05/29/2024 5:04 AM [facility] BUN/Creatinine Ratio 9 7 - 23 05/29/2024 5:04 AM [facility] Osmolality Calculated 298(H) 275 - 295 mOsm/kg 05/29/2024 5:04 AM [facility] eGFR by CKD-EPI 12(L) >=90 mL/min/1.7 3 m2 05/29/2024 5:04 AM [facility] Blood BLOOD SPECIMEN / Unknown Lab Venipuncture / Unknown 05/29/2024 4:08 AM CDT 05/29/2024 4:31 AM CDT Noe Rabago MD LAB - CHEMISTRY ORDE WADE [facility] Organization Address City/State/ZIP Co de Phone Number [facility] [address] [place] [address], [facility] [phone] * VANCOMYCIN LEVEL RANDOM (05/29/2024 4:08 AM CDT) Vancomycin Random 23.0 Therapeutic Ranges not established for random specimens ug/mL 05/29/2024 6:07 AM T [facility] Blood BLOOD SPECIMEN / Unknown Lab Venipuncture / Unknown 05/29/2024 4:08 AM CDT 05/29/2024 4:27 AM CDT Narrative [facility] - 05/29/2024 6:07 AM CDT See institution protocol. Hunter Chin III, MD LAB - CHEMISTRY ORDERABLES [address] [address], [place] [phone] * (ABNORMAL) GLUCOSE - POINT OF CARE (05/28/2024 7:43 PM CDT) Glucose WB/POC 195(H) 70 - 115 mg/dL 05/28/2024 7:48 PM CDT [facility] Specimen Type Cap Fingerstick 2023 7:48 PM CDT [facility] Blood BLOOD SPECIMEN / Unknown 05/28/2024 7:43 PM CDT 05/28/2024 7:48 PM CDT Hunter Chin III, MD LAB - POINT OF CARE ORDERABLES Performing Organization Address City/[facility]/ZIP Co de Phone Number [address] [address], [place] [phone] * (ABNORMAL) GLUCOSE - POINT OF CARE (05/28/2024 4:37 PM CDT) Glucose WB/POC 137(H) 70 - 115 mg/dL 05/28/2024 5:11 PM CDT [facility] Specimen Type Arterial 05/28/2024 5:11 PM CDT [facility] Blood BLOOD SPECIMEN / Unknown 05/28/2024 4:37 PM CDT 05/28/2024 5:11 PM CDT Hunter Chin III, MD LAB - POINT OF CARE ORDERABLES [address] [address], [place] [phone] * (ABNORMAL) GLUCOSE - POINT OF CARE (05/28/2024 11:47 AM CDT) Glucose WB/POC 171(H) 70 - 115 mg/dL 05/28/2024 11:56 AM CDT [facility] Specimen Type Arterial 05/28/2024 11:56 AM CDT [facility] Blood BLOOD SPECIMEN / Unknown 05/28/2024 11:47 AM CDT 05/28/2024 11:56 AM CDT Hunter Chin III, MD LAB - POINT OF CARE ORDERABLES Performing Organization Address City/[facility]/ZIP Co de Phone Number [facility] [address] [place] [address], [facility] [phone] * (ABNORMAL) GLUCOSE - POINT OF CARE (05/28/2024 9:05 AM CDT) Glucose WB/POC 157(H) 70 - 115 mg/dL 05/28/2024 9:09 AM CDT [facility] Specimen Type Cap Fingerstick 2023 9:09 AM CDT [facility] Blood BLOOD SPECIMEN / Unknown 05/28/2024 9:05 AM CDT 05/28/2024 9:09 AM CDT Hunter Chin III, MD LAB - POINT OF CARE ORDERABLES Performing Organization Address [facility]/ZIP Co de Phone Number [facility] [address] [place] [id number], [place] [phone] * MRI SHOULDER LEFT WWO CONT (05/28/2024 [...] Dictated by Neisha Moreira M.D. - Diagnostic Batch Room Technician. I, Yolanda Rosales MD have personally reviewed and interpreted this examination/study. > Interpreting Provider: Yolanda Rosales MD on 05/28/2024 12:19 PM Narrative 05/28/2024 12:19 PM CDT PROCEDURE: ??MRI SHOULDER LEFT WWO CONT, DATE/TIME OF EXAM: ??05/28/2024 8:56 AM, LOCATION ??[facility] INDICATION: N18.6: ESRD (end stage renal disease) ([facility]) ADDITIONAL CLINICAL INFORMATION: Ordering Provider Reason For [...] CONT, DATE/TIME OF EXAM: 48:56 AM, LOCATION [facility] INDICATION: N18.6: ESRD (end stage renal disease) ([facility]) ADDITIONAL CLINICAL INFORMATION: Ordering Provider Reason For [...] Dictated by Neisha Moreira M.D. - Diagnostic Batch Room Technician. I, Yolanda Rosales MD have personally reviewed and interpreted this examination/study. > Interpreting Provider: Yolanda Rosales MD on 2:19 PM Hunter Chin III, MD MR ORDERABLES * (ABNORMAL) CBC W AUTO DIFFERENTIAL (05/28/2024 3:35 AM CDT) [facility] WBC 7.3 4.0 - 10.7 x10E9/L 05/28/2024 5:03 AM CDT [facility] RBC Count 3.65(L) 3.90 - 5.20 x10E12/L 05/28/2024 5:03 AM [facility] Hemoglobin 10.8(L) 11.9 - 15.8 g/dL 05/28/2024 5:03 AM [facility] Hematocrit 35.3 34.8 - 46.1 % 05/28/2024 5:03 AM [facility] MCV 96.7 80.0 - 98.0 fL 05/28/2024 5:03 AM [facility] MCH 29.6 26.7 - 33.6 pg 05/28/2024 5:03 AM [facility] MCHC 30.6(L) 31.7 - 36.3 g/dL 05/28/2024 5:03 AM [facility] RDW-CV 15.6(H) 11.3 - 14.8 % 05/28/2024 5:03 AM [facility] Platelet Count 330 150 - 420 x10E9/L 05/28/2024 5:03 AM [facility] MPV 10.0 7.8 - 11.4 fL 05/28/2024 5:03 AM [facility] Neutrophil % 57.3 41.0 - 74.0 % 05/28/2024 5:03 AM [facility] Lymphocyte % 24.8 17.0 - 47.0 % 05/28/2024 5:03 AM [facility] Monocyte % 9.5 3.0 - 11.0 % 05/28/2024 5:03 AM [facility] Eosinophil % 7.7(H) 0.0 - 7.0 % 05/28/2024 5:03 AM [facility] Basophil % 0.4 0.0 - 1.6 % 05/28/2024 5:03 AM [facility] Immature Granulocytes % 0.3 0.0 - 1.0 % 05/28/2024 5:03 AM [facility] Neutrophil Absolute 4.19 1.60 - 7.50 x10E9/L 05/28/2024 5:03 AM [facility] Lymphocyte Absolute 1.81 1.00 - 4.40 x10E9/L 05/28/2024 5:03 AM [facility] Monocyte Absolute 0.69 0.15 - 1.00 x10E9/L 05/28/2024 5:03 AM [facility] Eosinophil Absolute 0.56 0.00 - 0.60 x10E9/L 05/28/2024 5:03 AM [facility] Basophil Absolute 0.03 0.00 - 0.13 x10E9/L 05/28/2024 5:03 AM [facility] Blood BLOOD SPECIMEN / Unknown Lab Venipuncture / Unknown 05/28/2024 3:35 AM CDT 05/28/2024 4:51 AM CDT Noe Rabago MD LAB - HEMATOLOGY ORD ERABLES [facility] [address] [place] [address], [facility] [phone] * (ABNORMAL) RENAL FUNCTION PANEL (05/28/2024 3:35 AM CDT) BUN 26 7 - 26 mg/dL 05/28/2024 5:23 AM [facility] Creatinine 3.70(H) 0.56 - 0.96 mg/dL 05/28/2024 5:23 AM [facility] Sodium 138 136 - 145 mmol/L 05/28/2024 5:23 AM [facility] Potassium 4.7(H) 3.5 - 4.5 mmol/L 05/28/2024 5:23 AM [facility] Chloride 101 98 - 107 mmol/L 05/28/2024 5:23 AM [facility] CO2 30(H) 22 - 29 mmol/L 05/28/2024 5:23 AM [facility] Glucose 152(H) 70 - 115 mg/dL 05/28/2024 5:23 AM [facility] Albumin 2.1(L) 3.4 - 5.0 g/dL 05/28/2024 5:23 AM [facility] Calcium 8.7 8.4 - 10.2 mg/dL 05/28/2024 5:23 AM T [facility] Phosphorus 5.2(H) 2.9 - 5.1 mg/dL 05/28/2024 5:23 AM [facility] Anion Gap 7 6 - 16 05/28/2024 5:23 AM T [facility] BUN/Creatinine Ratio 7 7 - 23 05/28/2024 5:23 AM T [facility] Osmolality Calculated 294 275 - 295 mOsm/kg 05/28/2024 5:23 AM [facility] eGFR by CKD-EPI 16(L) >=90 mL/min/1.7 3 m2 05/28/2024 5:23 AM [facility] Blood BLOOD SPECIMEN / Unknown Lab Venipuncture / Unknown 05/28/2024 3:35 AM CDT 05/28/2024 4:51 AM CDT Noe Rabago MD LAB - CHEMISTRY DIVINA OLVERA [address] [address], [place] [phone] * (ABNORMAL) GLUCOSE - POINT OF CARE (05/27/2024 8:02 PM CDT) Glucose WB/POC 180(H) 70 - 115 mg/dL 05/27/2024 8:08 PM CDT [facility] Specimen Type Cap Fingerstick 2023 8:08 PM CDT [facility] Blood BLOOD SPECIMEN / Unknown 05/27/2024 8:02 PM CDT 05/27/2024 8:08 PM CDT Hunter Chin III, MD LAB - POINT OF CARE ORDERABLES [address] [address], [place] [phone] * (ABNORMAL) GLUCOSE - POINT OF CARE (05/27/2024 5:10 PM CDT) Glucose WB/POC 220(H) 70 - 115 mg/dL 05/27/2024 5:28 PM CDT [facility] Specimen Type Arterial 05/27/2024 5:28 PM CDT [facility] Blood BLOOD SPECIMEN / Unknown 05/27/2024 5:10 PM CDT 05/27/2024 5:28 PM CDT Hunter Chin III, MD LAB - POINT OF CARE ORDERABLES Performing Organization Address City/[facility]/ZIP Co de Phone Number [address] [address], [place] [phone] * (ABNORMAL) GLUCOSE - POINT OF CARE (05/27/2024 1:10 PM CDT) Glucose WB/POC 164(H) 70 - 115 mg/dL 05/27/2024 1:26 PM CDT [facility] Specimen Type Cap Fingerstick 2023 1:26 PM CDT [facility] Blood BLOOD SPECIMEN / Unknown 05/27/2024 1:10 PM CDT 05/27/2024 1:26 PM CDT Hunter Chin III, MD LAB - POINT OF CARE ORDERABLES Performing Organization Address [facility] Co de Phone Number [address] [address], [place] [phone] * GLUCOSE - POINT OF CARE (05/27/2024 7:43 AM CDT) Glucose WB/POC 113 70 - 115 mg/dL 05/27/2024 8:02 AM CDT [facility] Specimen Type Arterial 05/27/2024 8:02 AM CDT [facility] Blood BLOOD SPECIMEN / Unknown 05/27/2024 7:43 AM CDT 05/27/2024 8:02 AM CDT Hunter Chin III, MD LAB - POINT OF CARE ORDERABLES Performing Organization Address City/[facility]/ZIP Co de Phone Number [address] [address] [phone] * (ABNORMAL) CBC W AUTO DIFFERENTIAL (05/27/2024 6:59 AM CDT) WBC 6.9 4.0 - 10.7 x10E9/L 05/27/2024 7:14 AM [facility] RBC Count 3.63(L) 3.90 - 5.20 x10E12/L 05/27/2024 7:14 AM [facility] Hemoglobin 10.8(L) 11.9 - 15.8 g/dL 05/27/2024 7:14 AM [facility] Hematocrit 35.2 34.8 - 46.1 % 05/27/2024 7:14 AM [facility] MCV 97.0 80.0 - 98.0 fL 05/27/2024 7:14 AM [facility] MCH 29.8 26.7 - 33.6 pg 05/27/2024 7:14 AM [facility] MCHC 30.7(L) 31.7 - 36.3 g/dL 05/27/2024 7:14 AM [facility] RDW-CV 15.8(H) 11.3 - 14.8 % 05/27/2024 7:14 AM [facility] Platelet Count 374 150 - 420 x10E9/L 05/27/2024 7:14 AM [facility] MPV 9.3 7.8 - 11.4 fL 05/27/2024 7:14 AM [facility] Neutrophil % 49.6 41.0 - 74.0 % 05/27/2024 7:14 AM [facility] Lymphocyte % 32.9 17.0 - 47.0 % 05/27/2024 7:14 AM [facility] Monocyte % 8.2 3.0 - 11.0 % 05/27/2024 7:14 AM [facility] Eosinophil % 8.4(H) 0.0 - 7.0 % 05/27/2024 7:14 AM [facility] Basophil % 0.6 0.0 - 1.6 % 05/27/2024 7:14 AM [facility] Immature Granulocytes % 0.3 0.0 - 1.0 % 05/27/2024 7:14 AM [facility] Neutrophil Absolute 3.43 1.60 - 7.50 x10E9/L 05/27/2024 7:14 AM [facility] Lymphocyte Absolute 2.28 1.00 - 4.40 x10E9/L 05/27/2024 7:14 AM [facility] Monocyte Absolute 0.57 0.15 - 1.00 x10E9/L 05/27/2024 7:14 AM [facility] Eosinophil Absolute 0.58 0.00 - 0.60 x10E9/L 05/27/2024 7:14 AM [facility] Basophil Absolute 0.04 0.00 - 0.13 x10E9/L 05/27/2024 7:14 AM [facility] Blood BLOOD SPECIMEN / Unknown Lab Venipuncture / Unknown 05/27/2024 6:59 AM CDT 05/27/2024 7:04 AM CDT Noe Rabago MD LAB - HEMATOLOGY ORD ERABLES [facility] [address] [place] [address], [facility] [phone] * (ABNORMAL) RENAL FUNCTION PANEL (05/27/2024 6:59 AM CDT) BUN 31(H) 7 - 26 mg/dL 05/27/2024 7:30 AM [facility] Creatinine 4.15(H) 0.56 - 0.96 mg/dL 05/27/2024 7:30 AM [facility] Sodium 138 136 - 145 mmol/L 05/27/2024 7:30 AM [facility] Potassium 4.7(H) 3.5 - 4.5 mmol/L 05/27/2024 7:30 AM [facility] Chloride 105 98 - 107 mmol/L 05/27/2024 7:30 AM [facility] CO2 28 22 - 29 mmol/L 05/27/2024 7:30 AM [facility] Glucose 119(H) 70 - 115 mg/dL 05/27/2024 7:30 AM [facility] Albumin 1.9(L) 3.4 - 5.0 g/dL 05/27/2024 7:30 AM [facility] Calcium 8.3(L) 8.4 - 10.2 mg/dL 05/27/2024 7:30 AM [facility] Phosphorus 5.6(H) 2.9 - 5.1 mg/dL 05/27/2024 7:30 AM [facility] Anion Gap 5(L) 6 - 16 05/27/2024 7:30 AM [facility] BUN/Creatinine Ratio 7 7 - 23 05/27/2024 7:30 AM [facility] Osmolality Calculated 294 275 - 295 mOsm/kg 05/27/2024 7:30 AM [facility] eGFR by CKD-EPI 14(L) >=90 mL/min/1.7 3 m2 05/27/2024 7:30 AM [facility] Blood BLOOD SPECIMEN / Unknown Lab Venipuncture / Unknown 05/27/2024 6:59 AM CDT 05/27/2024 7:05 AM [facility] Noe Rabago MD LAB - CHEMISTRY DIVINA OLVERA [facility] Organization Address [facility]/State/ZIP Co de Phone Number [facility] [address] [place] [address], [facility] [phone] * HEMOGLOBIN ELECTROPHORESIS (05/27/2024 6:59 AM T) Interpretation Hemoglobin Pattern Normal Pattern Normal Pattern 05/28/2024 1:54 PM [facility] Comment: Capillary hemoglobin (Hb) electrophoresis shows two Hb bands with electrophoretic mobilities corresponding to HbA and HbA2. No abnormal hemoglobins detected. ?? One or two gene deletion alpha thalassemia cannot be excluded since these conditions are not associated with abnormal findings on routine hemoglobin electrophoresis and except for mild microcytosis, are generally not associated with other hematologic abnormalities. Fredi Coates PhD, [facility] Clinical Technical Business Systems Analyst head wrestling coach These results/interpretation were reviewed and verified by [...] LAB - CHEMISTRY ORDERABLES Performing Organization Address City/[facility]/ZIP Co de Phone Number [address] [address], [place] [phone] * VANCOMYCIN LEVEL RANDOM (05/27/2024 6:59 AM CDT) Pathologist [facility] [place] Vancomycin Random 14.8 Therapeutic Ranges not established for random specimens ug/mL 05/27/2024 7:25 AM CDT [facility] Blood BLOOD SPECIMEN / Unknown Lab Venipuncture / Unknown 05/27/2024 6:59 AM CDT 05/27/2024 7:03 AM CDT Narrative [facility] - 05/27/2024 7:25 AM CDT See institution protocol. Noe Rabago MD LAB - CHEMISTRY ORDMichaela OLVERA [address] [address], [place] [phone] * (ABNORMAL) GLUCOSE - POINT OF CARE (05/26/2024 8:12 PM CDT) Pathologist [facility] [place] Glucose WB/POC 208(H) 70 - 115 mg/dL 05/26/2024 8:18 PM CDT [facility] Specimen Type Cap Fingerstick 2023 8:18 PM CDT [facility] Blood BLOOD SPECIMEN / Unknown 05/26/2024 8:12 PM CDT 05/26/2024 8:18 PM CDT Hunter Chin III, MD LAB - POINT OF CARE ORDERABLES [facility] [address] [place] [address], [place] [phone] * (ABNORMAL) GLUCOSE - POINT OF CARE (05/26/2024 3:34 PM CDT) Glucose WB/POC 215(H) 70 - 115 mg/dL 05/26/2024 4:32 PM CDT [facility] Specimen Type Arterial 05/26/2024 4:32 PM CDT [facility] Blood BLOOD SPECIMEN / Unknown 05/26/2024 3:34 PM CDT 05/26/2024 4:32 PM CDT Hunter Chin III, MD LAB - POINT OF CARE ORDERABLES Performing Organization Address City/[facility]/ZIP Co de Phone Number [facility] [address] [place] [address], [place] [phone] * (ABNORMAL) GLUCOSE - POINT OF CARE (05/26/2024 11:49 AM CDT) Glucose WB/POC 202(H) 70 - 115 mg/dL 05/26/2024 1:20 PM CDT [facility] Specimen Type Arterial 05/26/2024 1:20 PM CDT [facility] Blood BLOOD SPECIMEN / Unknown 05/26/2024 11:49 AM CDT 05/26/2024 1:20 PM CDT Hunter Chin III, MD LAB - POINT OF CARE ORDERABLES [address] [address], [place] [phone] * (ABNORMAL) GLUCOSE - POINT OF CARE (05/26/2024 7:40 AM CDT) Glucose WB/POC 122(H) 70 - 115 mg/dL 05/26/2024 8:09 AM [facility] Specimen Type Arterial 05/26/2024 8:09 AM [facility] Blood BLOOD SPECIMEN / Unknown 05/26/2024 7:40 AM CDT 05/26/2024 8:09 AM CDT Hunter Chin III, MD LAB - POINT OF CARE ORDERABLES [facility] [address] [place] [address], [facility] [phone] * (ABNORMAL) CBC W AUTO DIFFERENTIAL (05/26/2024 6:02 AM T) WBC 8.0 4.0 - 10.7 x10E9/L 05/26/2024 7:23 AM [facility] RBC Count 3.47(L) 3.90 - 5.20 x10E12/L 05/26/2024 7:23 AM [facility] Hemoglobin 10.2(L) 11.9 - 15.8 g/dL 05/26/2024 7:23 AM [facility] Hematocrit 33.8(L) 34.8 - 46.1 % 05/26/2024 7:23 AM [facility] MCV 97.4 80.0 - 98.0 fL 05/26/2024 7:23 AM [facility] MCH 29.4 26.7 - 33.6 pg 05/26/2024 7:23 AM [facility] MCHC 30.2(L) 31.7 - 36.3 g/dL 05/26/2024 7:23 AM [facility] RDW-CV 15.8(H) 11.3 - 14.8 % 05/26/2024 7:23 AM [facility] Platelet Count 371 150 - 420 x10E9/L 05/26/2024 7:23 AM [facility] MPV 9.8 7.8 - 11.4 fL 05/26/2024 7:23 AM [facility] Neutrophil % 56.2 41.0 - 74.0 % 05/26/2024 7:23 AM [facility] Lymphocyte % 27.7 17.0 - 47.0 % 05/26/2024 7:23 AM [facility] Monocyte % 8.3 3.0 - 11.0 % 05/26/2024 7:23 AM [facility] Eosinophil % 6.9 0.0 - 7.0 % 05/26/2024 7:23 AM [facility] Basophil % 0.5 0.0 - 1.6 % 05/26/2024 7:23 AM [facility] Immature Granulocytes % 0.4 0.0 - 1.0 % 05/26/2024 7:23 AM [facility] Neutrophil Absolute 4.48 1.60 - 7.50 x10E9/L 05/26/2024 7:23 AM [facility] Lymphocyte Absolute 2.21 1.00 - 4.40 x10E9/L 05/26/2024 7:23 AM [facility] Monocyte Absolute 0.66 0.15 - 1.00 x10E9/L 05/26/2024 7:23 AM [facility] Eosinophil Absolute 0.55 0.00 - 0.60 x10E9/L 05/26/2024 7:23 AM [facility] Basophil Absolute 0.04 0.00 - 0.13 x10E9/L 05/26/2024 7:23 AM [facility] Blood BLOOD SPECIMEN / Unknown Lab Venipuncture / Unknown 05/26/2024 6:02 AM CDT 05/26/2024 7:07 AM CDT Noe Rabago MD LAB - HEMATOLOGY ORD ERABLES [facility] [address] [place] [address], [facility] [phone] * (ABNORMAL) RENAL FUNCTION PANEL (05/26/2024 6:02 AM CDT) BUN 22 7 - 26 mg/dL 05/26/2024 7:38 AM [facility] Creatinine 3.22(H) 0.56 - 0.96 mg/dL 05/26/2024 7:38 AM [facility] Sodium 137 136 - 145 mmol/L 05/26/2024 7:38 AM [facility] Potassium 4.4 3.5 - 4.5 mmol/L 05/26/2024 7:38 AM [facility] Chloride 104 98 - 107 mmol/L 05/26/2024 7:38 AM [facility] CO2 26 22 - 29 mmol/L 05/26/2024 7:38 AM [facility] Glucose 104 70 - 115 mg/dL 05/26/2024 7:38 AM [facility] Albumin 2.0(L) 3.4 - 5.0 g/dL 05/26/2024 7:38 AM [facility] Calcium 8.5 8.4 - 10.2 mg/dL 05/26/2024 7:38 AM [facility] Phosphorus 4.8 2.9 - 5.1 mg/dL 05/26/2024 7:38 AM [facility] Anion Gap 7 6 - 16 05/26/2024 7:38 AM [facility] BUN/Creatinine Ratio 7 7 - 23 05/26/2024 7:38 AM [facility] Osmolality Calculated 288 275 - 295 mOsm/kg 05/26/2024 7:38 AM [facility] eGFR by CKD-EPI 19(L) >=90 mL/min/1.7 3 m2 05/26/2024 7:38 AM [facility] Blood BLOOD SPECIMEN / Unknown Lab Venipuncture / Unknown 05/26/2024 6:02 AM CDT 05/26/2024 7:06 AM [facility] Noe Rabago MD LAB - CHEMISTRY DIVINA OLVERA [facility] Organization Address City/State/ZIP Co de Phone Number [facility] [address] [place] [address], [facility] [phone] * HEMOGLOBIN ELECTROPHORESIS (05/26/2024 6:02 AM CDT) Interpretation Hemoglobin Pattern Normal Pattern Normal Pattern [...] are generally not associated with other hematologic abnormalities.' T. Eladio Coates PhD, [facility] Clinical Technical Business Systems Analyst head wrestling coach These results/interpretation were reviewed and verified by [...] SPECIMEN / Unknown Lab Venipuncture / Unknown 05/26/2024 6:02 AM CDT 05/26/2024 7:06 AM CDT Hunter Chin III, MD LAB - CHEMISTRY ORDERABLES [address] [address], [place] [phone] * (ABNORMAL) GLUCOSE - POINT OF CARE (05/25/2024 8:07 PM CDT) Pathologist [facility] [place] Glucose WB/POC 242(H) 70 - 115 mg/dL 05/25/2024 10:32 PM CDT [facility] Specimen Type Arterial 05/25/2024 10:32 PM CDT [facility] Blood BLOOD SPECIMEN / Unknown 05/25/2024 8:07 PM CDT 05/25/2024 10:32 PM CDT Hunter Chin III, MD LAB - POINT OF CARE ORDERABLES Performing Organization Address City/[facility]/ZIP Co de Phone Number [address] [address], [place] [phone] * (ABNORMAL) GLUCOSE - POINT OF CARE (05/25/2024 4:36 PM CDT) Glucose WB/POC 205(H) 70 - 115 mg/dL 05/25/2024 8:01 PM CDT [facility] Specimen Type Arterial 05/25/2024 8:01 PM CDT [facility] Blood BLOOD SPECIMEN / Unknown 05/25/2024 4:36 PM CDT 05/25/2024 8:01 PM CDT Hunter Chin III, MD LAB - POINT OF CARE ORDERABLES [address] [address], [place] [phone] * (ABNORMAL) GLUCOSE - POINT OF CARE (05/25/2024 12:56 PM CDT) Glucose WB/POC 156(H) 70 - 115 mg/dL 05/25/2024 12:57 PM CDT [facility] Specimen Type Cap Fingerstick 2023 12:57 PM CDT [facility] Blood BLOOD SPECIMEN / Unknown 05/25/2024 12:56 PM CDT 05/25/2024 12:57 PM CDT Hunter Chin III, MD LAB - POINT OF CARE ORDERABLES [address] [address], [place] [phone] * (ABNORMAL) CBC W AUTO DIFFERENTIAL (05/25/2024 6:43 AM CDT) WBC 8.6 4.0 - 10.7 x10E9/L 05/25/2024 7:29 AM CDT [facility] RBC Count 3.38(L) 3.90 - 5.20 x10E12/L 05/25/2024 7:29 AM CDT [facility] Hemoglobin 9.9(L) 11.9 - 15.8 g/dL 05/25/2024 7:29 AM [facility] Hematocrit 32.7(L) 34.8 - 46.1 % 05/25/2024 7:29 AM [facility] MCV 96.7 80.0 - 98.0 fL 05/25/2024 7:29 AM [facility] MCH 29.3 26.7 - 33.6 pg 05/25/2024 7:29 AM [facility] MCHC 30.3(L) 31.7 - 36.3 g/dL 05/25/2024 7:29 AM [facility] RDW-CV 15.6(H) 11.3 - 14.8 % 05/25/2024 7:29 AM [facility] Platelet Count 427(H) 150 - 420 x10E9/L 05/25/2024 7:29 AM [facility] MPV 9.5 7.8 - 11.4 fL 05/25/2024 7:29 AM [facility] Neutrophil % 60.2 41.0 - 74.0 % 05/25/2024 7:29 AM [facility] Lymphocyte % 23.2 17.0 - 47.0 % 05/25/2024 7:29 AM [facility] Monocyte % 7.3 3.0 - 11.0 % 05/25/2024 7:29 AM [facility] Eosinophil % 8.5(H) 0.0 - 7.0 % 05/25/2024 7:29 AM [facility] Basophil % 0.5 0.0 - 1.6 % 05/25/2024 7:29 AM [facility] Immature Granulocytes % 0.3 0.0 - 1.0 % 05/25/2024 7:29 AM [facility] Neutrophil Absolute 5.18 1.60 - 7.50 x10E9/L 05/25/2024 7:29 AM [facility] Lymphocyte Absolute 2.00 1.00 - 4.40 x10E9/L 05/25/2024 7:29 AM [facility] Monocyte Absolute 0.63 0.15 - 1.00 x10E9/L 05/25/2024 7:29 AM [facility] Eosinophil Absolute 0.73(H) 0.00 - 0.60 x10E9/L 05/25/2024 7:29 AM [facility] Basophil Absolute 0.04 0.00 - 0.13 x10E9/L 05/25/2024 7:29 AM [facility] Blood BLOOD SPECIMEN / Unknown Lab Venipuncture / Unknown 05/25/2024 6:43 AM CDT 05/25/2024 7:13 AM CDT Noe Rabago MD LAB - HEMATOLOGY ORD ERABLES [facility] [address] [place] [address], [facility] [phone] * (ABNORMAL) RENAL FUNCTION PANEL (05/25/2024 6:43 AM CDT) BUN 39(H) 7 - 26 mg/dL 05/25/2024 8:37 AM [facility] Creatinine 4.06(H) 0.56 - 0.96 mg/dL 05/25/2024 8:37 AM [facility] Sodium 139 136 - 145 mmol/L 05/25/2024 8:37 AM [facility] Potassium 5.1(H) 3.5 - 4.5 mmol/L 05/25/2024 8:37 AM [facility] Chloride 106 98 - 107 mmol/L 05/25/2024 8:37 AM [facility] CO2 19(L) 22 - 29 mmol/L 05/25/2024 8:37 AM [facility] Glucose 224(H) 70 - 115 mg/dL 05/25/2024 8:37 AM [facility] Albumin 2.0(L) 3.4 - 5.0 g/dL 05/25/2024 8:37 AM [facility] Calcium 8.6 8.4 - 10.2 mg/dL 05/25/2024 8:37 AM [facility] Phosphorus 4.7 2.9 - 5.1 mg/dL 05/25/2024 8:37 AM [facility] Anion Gap 14 6 - 16 05/25/2024 8:37 AM T [facility] BUN/Creatinine Ratio 10 7 - 23 05/25/2024 8:37 AM [facility] Osmolality Calculated 304(H) 275 - 295 mOsm/kg 05/25/2024 8:37 AM [facility] eGFR by CKD-EPI 14(L) >=90 mL/min/1.7 3 m2 05/25/2024 8:37 AM [facility] Blood BLOOD SPECIMEN / Unknown Lab Venipuncture / Unknown 05/25/2024 6:43 AM CDT 05/25/2024 7:14 AM CDT Noe Rabago MD LAB - CHEMISTRY DIVINA OLVERA [facility] Organization Address City/State/ZIP Co de Phone Number [facility] [address] [place] [address], [facility] [phone] * (ABNORMAL) HEMOGLOBIN A1C (05/25/2024 6:43 AM CDT) Hemoglobin A1c 6.2(H) <=5.6 % 05/25/2024 10:12 AM [facility] Estimated Average Glucose 131 mg/dL 05/25/2024 10:12 AM [facility] Comment: HbA1c Interpretation: Normal : < 5.7% Pre-diabetes: 5.7-6.4% Diabetes: Equal to or greater than 6.5% Test results diagnostic of diabetes should be repeated for confirmation. Treatment target values recommended by ADA and other clinical organizations should be used to evaluate metabolic control in patients. Reference: [place] [employer], Standards of Care in Diabetes -2020 In patients 70 years and older consider HbA1c target range of 7.0-7.5% (Reference: Anthony Dillard et al. JAMDA. 2012) The Sebia assay for the measurement of HbA1c is a National Glycohemoglobin Standardization Program (NGSP) certified method. Blood BLOOD SPECIMEN / Unknown Lab Venipuncture / Unknown 05/25/2024 6:43 AM CDT 05/25/2024 7:13 AM CDT Noe Rabago MD LAB - CHEMISTRY ORDMichaela OLVERA [address] [address], [place] [phone] * (ABNORMAL) GLUCOSE - POINT OF CARE (05/24/2024 8:55 PM CDT) Glucose WB/POC 254(H) 70 - 115 mg/dL 05/24/2024 9:00 PM CDT [facility] Specimen Type Cap Fingerstick 2023 9:00 PM CDT [facility] Blood BLOOD SPECIMEN / Unknown 05/24/2024 8:55 PM CDT 05/24/2024 9:00 PM CDT Noe Rabago MD LAB - POINT OF CARE ORDERABLES Performing Organization Address City/[facility]/ZIP Co de Phone Number [address] [address], [place] [phone] * (ABNORMAL) GLUCOSE - POINT OF CARE (05/24/2024 6:21 PM CDT) Glucose WB/POC 259(H) 70 - 115 mg/dL 05/25/2024 6:27 AM CDT [facility] Specimen Type Cap Fingerstick 2023 6:27 AM CDT [facility] Blood BLOOD SPECIMEN / Unknown 05/24/2024 6:21 PM CDT 05/25/2024 6:27 AM CDT Noe Rabago MD LAB - POINT OF CARE ORDERABLES [address] [address], [place] [phone] * CULTURE ANAEROBE (05/24/2024 3:06 PM CDT) Culture No anaerobic organisms isolated CHARLES 05/30/2024 7:19 AM CDT [facility] Microbiology SYNOVIAL FLUID / Unknown Collection / Unknown 05/24/2024 3:06 PM CDT 05/24/2024 3:18 PM CDT Noe Rabago MD LAB - MICROBIOLOGY O DARRELL Performing Organization Address [facility]/ZIP Co de Phone Number [facility] [address] [place] [address], [facility] [phone] * CULTURE FLUID+GRAM STAIN (05/24/2024 3:06 PM CDT) Culture No growth CHARLES 05/27/2024 9:33 PM CDT [facility]CRO[facility]Y Gram Stain Light Polymorphonuclear cells 05/27/2024 9:33 PM CDT [facility] MICROBIOLOG[facility] Gram Stain Light Red blood cells 05/27/2024 9:33 PM CDT [facility] MICROBIOLOG[facility] Gram Stain No organisms seen 024 9:33 PM CDT [facility] MICROBIOLOGY Fluid SYNOVIAL FLUID / Unknown Collection / Unknown 05/24/2024 3:06 PM CDT 05/24/2024 7:50 PM CDT Noe Rabago MD LAB - MICROBIOLOGY O DARRELL Performing Organization Address City/[facility]/ZIP Co de Phone Number [facility] MICROBIOLOG[facility] [address] [place] [address], [facility] [phone] * PATHOLOGY SMEAR BODY FLUID (05/24/2024 3:05 PM CDT) Path Review Fluid 05/25/2024 11:40 AM CDT [facility] Fluid SYNOVIAL FLUID / Unknown Collection / Unknown 05/24/2024 3:05 PM CDT 05/24/2024 3:17 PM CDT Narrative [facility] - 05/25/2024 11:40 AM CDT NOTE: There are currently 2 left shoulder joint specimen numbers for this patient, both collected at 1505 on 05/24/2024 (specimen #: [id number]/instrument ID: [id number] and specimen #: [id number]/instrument ID: [id number]). The Pathology Review report will apply to both, but will only be charged and displayed under specimen #: [id number]/instrument ID: [id number]. Noe Rabago MD LAB - PATHOLOGY/CYTO LOGY ORDERABLES Performing Organization Address [facility]/ZIP Co de Phone Number [facility] [address] [place] [address], [facility] [phone] * DIFFERENTIAL MANUAL FLUID (05/24/2024 3:05 PM CDT) Fluid Source Synovial 05/24/2024 4:37 PM CDT [facility] Body Fluid Total Cell Count 100 x10E6/L 05/24/2024 4:37 PM CDT [facility] Neutrophils Fluid Percent 83 % 05/24/2024 4:37 PM CDT [facility] Lymphocytes Fluid Percent 9 % 05/24/2024 4:37 PM CDT [facility] Macrophages Fluid Percent 8 % 05/24/2024 4:37 PM CDT [facility] Comment:Hemosiderin Laden Ma crophages present Fluid SYNOVIAL FLUID / Unknown Collection / Unknown 05/24/2024 3:05 PM CDT 05/24/2024 3:17 PM CDT Narrative [facility] - 05/24/2024 4:37 PM CDT No reference ranges established for body fluid differential cell counts. ??The test results must be integrated into the clinical context for interpretation. Noe Rabago MD LAB - BODY FLUID ORD ERABLES Performing Organization Address [facility]/ZIP Co de Phone Number [facility] [address] [place] [id number], [place] [phone] * PATHOLOGY SMEAR BODY FLUID (05/24/2024 3:05 PM CDT) Path Review Fluid Confirmed 05/25/2024 4:28 PM CDT [facility] Fluid SYNOVIAL FLUID / Unknown Collection / Unknown 05/24/2024 3:05 PM CDT 05/24/2024 3:16 PM CDT [facility] - 05/25/2024 4:28 PM CDT Clinical history: This 33 year-old female patient has a PMH that includes blindness, T2DM, HTN, ESRD (on HD 3x/week), HTN, chronic HFpEF, sickle cell disease (recent diagnosis), prior left AKA, chronic right heel ulcer/osteomyelitis (s/p tx w/ IV abx), and recent work-up for suspected right shoulder infection/septic arthritis at [facility] in February 2024 in the setting of MRSA bacteremia and multiple abscesses. Currently, the patient is admitted to [facility] following transfer from [facility] on 05/23/2024 with chief complaint of left shoulder pain/concern for septic arthritis. Patient's left shoulder joint was aspirated and synovial fluid was sent to the lab. Of note, there is no known history of gout or pseudogout. Pertinent findings, synovial fluid cytospin preparation: -Mixed inflammation (comprised predominantly of neutrophils admixed with significant numbers of macrophages and occasional plasmacytoid lymphocytes) -At least some degree of peripheral blood contamination is likely, given abundant background RBCs -Occasional erythrophagocytosis and leukophagocytosis -No readily identifiable microorganisms -No clinically significant crystals upon examination under polarized light Comments: Correlation with clinical findings and final results of concurrent microbiology testing is required. See notes. NOTES: There are currently 2 left shoulder joint specimen numbers for this patient, both collected at 1505 on 05/24/2024 (specimen #: [id number]/instrument ID: [id number] and specimen #: [id number]/instrument ID: [id number]). The Pathology Review report will apply to both, but will only be charged and displayed under specimen #: [id number]/instrument ID: [id number]. Additionally, crystal identification necessitates use of a microscope with both oil immersion objectives and a light polarization kit. This requires relocation to another building/lab to complete the testing and may extend the time to finalize the report. Gail Montero MD Attending Physician Transfusion Medicine and Clinical Pathology Noe Rabago MD LAB - PATHOLOGY/CYTO LOGY ORDERABLES [address] [address], [facility] [phone] * CRYSTAL INDENTIFICATION SYNOVIAL FLUID (05/24/2024 3:05 PM CDT) Crystal Exam Fluid To be performed by Pathology. See Path Review. 05/24/2024 4:28 PM CDT [facility] Fluid SYNOVIAL FLUID / Unknown Collection / Unknown 05/24/2024 3:05 PM CDT 05/24/2024 3:16 PM CDT Noe Rabago MD LAB - BODY FLUID ORD ERABLES [facility] [address] [place] [phone], [facility] [phone] * (ABNORMAL) CELL COUNT W DIFFERENTIAL FLUID (05/24/2024 3:05 PM CDT) Fluid Source Synovial 05/24/2024 4:36 PM CDT [facility] Fluid Appearance BLOODY 05/24/2024 4:36 PM CDT [facility] Fluid Color RED 05/24/2024 4:36 PM CDT [facility] Total Nucleated Cells Fluid 6,498(H) <=200 x10E6/L 05/24/2024 4:36 PM CDT [facility] RBC Count Fluid 610,000 Reference Range Not Established x10E6/L 05/24/2024 4:36 PM CDT [facility] Fluid SYNOVIAL FLUID / Unknown Collection / Unknown 05/24/2024 3:05 PM CDT 05/24/2024 3:17 PM CDT Narrative [facility] - 05/24/2024 4:36 PM CDT No reference ranges established for body fluid cell counts. Any reference ranges provided are derived from published literature. The test results must be integrated into the clinical context for interpretation. Noe Rabago MD LAB - BODY FLUID ORD ERABLES [facility] [address] [place] [phone], [facility] [phone] * XR SHOULDER LEFT 2VW OR MORE (05/24/2024 1:36 PM CDT) Anatomical Region Laterality Modality Upper [...] MD DIAGNOSTIC IMAGING O RDERABLES * (ABNORMAL) GLUCOSE - POINT OF CARE (05/24/2024 11:46 AM CDT) Glucose WB/POC 247(H) 70 - 115 mg/dL 05/24/2024 5:44 PM CDT [facility] Specimen Type Arterial 05/24/2024 5:44 PM CDT [facility] Blood BLOOD SPECIMEN / Unknown 05/24/2024 11:46 AM CDT 05/24/2024 5:44 PM CDT Noe Rabago MD LAB - POINT OF CARE ORDERABLES [address] [address], [facility] [phone] * (ABNORMAL) C-REACTIVE PROTEIN (05/24/2024 6:25 AM CDT) C-Reactive Protein 1.4(H) <=0.5 mg/dL 05/24/2024 6:59 AM CDT [facility] Blood BLOOD SPECIMEN / Unknown Lab Venipuncture / Unknown 05/24/2024 6:25 AM CDT 05/24/2024 6:28 AM CDT Deyvi Antoine MD LAB - CHEMISTRY DIVINA OLVERA [facility] [address] [place] [address], [facility] [phone] * (ABNORMAL) COMPREHENSIVE METABOLIC PANEL (05/24/2024 6:25 AM T) BUN 33(H) 7 - 26 mg/dL 05/24/2024 6:59 AM [facility] Creatinine 3.64(H) 0.56 - 0.96 mg/dL 05/24/2024 6:59 AM [facility] Sodium 139 136 - 145 mmol/L 05/24/2024 6:59 AM [facility] Potassium 4.2 3.5 - 4.5 mmol/L 05/24/2024 6:59 AM [facility] Chloride 104 98 - 107 mmol/L 05/24/2024 6:59 AM [facility] CO2 26 22 - 29 mmol/L 05/24/2024 6:59 AM [facility] Glucose 240(H) 70 - 115 mg/dL 05/24/2024 6:59 AM [facility] Calcium 8.5 8.4 - 10.2 mg/dL 05/24/2024 6:59 AM [facility] Protein Total 7.2 6.0 - 8.3 g/dL 05/24/2024 6:59 AM [facility] Albumin 1.9(L) 3.4 - 5.0 g/dL 05/24/2024 6:59 AM [facility] Bilirubin Total 0.1(L) 0.2 - 1.2 mg/dL 05/24/2024 6:59 AM [facility] Alkaline Phosphatase 170(H) 40 - 150 U/L 05/24/2024 6:59 AM [facility] ALT 25 5 - 55 U/L 05/24/2024 6:59 AM [facility] AST 14 5 - 34 U/L 05/24/2024 6:59 AM [facility] Anion Gap 9 6 - 16 05/24/2024 6:59 AM [facility] BUN/Creatinine Ratio 9 7 - 23 05/24/2024 6:59 AM [facility] Osmolality Calculated 303(H) 275 - 295 mOsm/kg 05/24/2024 6:59 AM T [facility] Albumin/Globulin Ratio 0.4(L) 1.1 - 2.3 05/24/2024 6:59 AM T [facility] eGFR by CKD-EPI 16(L) >=90 mL/min/1.7 3 m2 05/24/2024 6:59 AM CDT [facility] Blood BLOOD SPECIMEN / Unknown Lab Venipuncture / Unknown 05/24/2024 6:25 AM CDT 05/24/2024 6:28 AM CDT Deyvi Antoine MD LAB - CHEMISTRY ORDMichaela OLVERA [facility] [address] [place] [address], [place] [phone] * (ABNORMAL) GLUCOSE - POINT OF CARE (05/24/2024 6:01 AM CDT) Glucose WB/POC 246(H) 70 - 115 mg/dL 05/24/2024 6:51 AM T [facility] Specimen Type Cap Fingerstick 2023 6:51 AM T [facility] Blood BLOOD SPECIMEN / Unknown 05/24/2024 6:01 AM CDT 05/24/2024 6:51 AM CDT Celina Lucia MD LAB - POINT OF CARE ORDERABLES [facility] [address] [place] [address], [place] [phone] * VANCOMYCIN LEVEL RANDOM (05/24/2024 5:48 AM CDT) Vancomycin Random 20.5 Therapeutic Ranges not established for random specimens ug/mL 05/24/2024 6:47 AM CDT [facility] Blood BLOOD SPECIMEN / Unknown Lab Venipuncture / Unknown 05/24/2024 5:48 AM CDT 05/24/2024 5:51 AM CDT Narrative [facility] - 05/24/2024 6:47 AM CDT See institution protocol. Deyvi Antoine MD LAB - CHEMISTRY ORDE RABLIZA Performing Organization Address City/[facility]/ZIP Co de Phone Number [address] [address], [facility] [phone] * (ABNORMAL) ERYTHROCYTE SEDIMENTATION RATE (05/24/2024 5:48 AM CDT) Erythrocyte Sedimentation Rate Westergren 114(H) 0 - 20 MM/HR 05/24/2024 6:08 AM CDT [facility] Blood BLOOD SPECIMEN / Unknown Lab Venipuncture / Unknown 05/24/2024 5:48 AM CDT 05/24/2024 5:52 AM CDT Deyvi Antoine MD LAB - HEMATOLOGY ORD ERABLES Performing Organization Address [facility]/ZIP Co de Phone Number [address] [address], [facility] [phone] * (ABNORMAL) CBC W/O DIFFERENTIAL (05/24/2024 5:48 AM CDT) Pathologist [facility] WBC 8.9 4.0 - 10.7 x10E9/L 05/24/2024 5:58 AM CDT [facility] RBC Count 3.36(L) 3.90 - 5.20 x10E12/L 05/24/2024 5:58 AM CDT [facility] Hemoglobin 9.9(L) 11.9 - 15.8 g/dL 05/24/2024 5:58 AM CDT [facility] Hematocrit 32.7(L) 34.8 - 46.1 % 05/24/2024 5:58 AM CDT [facility] MCV 97.3 80.0 - 98.0 fL 05/24/2024 5:58 AM CDT [facility] MCH 29.5 26.7 - 33.6 pg 05/24/2024 5:58 AM CDT [facility] MCHC 30.3(L) 31.7 - 36.3 g/dL 05/24/2024 5:58 AM CDT [facility] RDW-CV 15.4(H) 11.3 - 14.8 % 05/24/2024 5:58 AM T [facility] Platelet Count 402 150 - 420 x10E9/L 05/24/2024 5:58 AM T [facility] MPV 9.4 7.8 - 11.4 fL 05/24/2024 5:58 AM T [facility] NRBC 0.2(H) <=0.0 /100 WBC 05/24/2024 5:58 AM T [facility] Blood BLOOD SPECIMEN / Unknown Lab Venipuncture / Unknown 05/24/2024 5:48 AM CDT 05/24/2024 5:52 AM CDT Deyvi Antoine MD LAB - HEMATOLOGY ORD ERABLES Performing Organization Address City/State/[facility] Co de Phone Number [address] [address], [facility] [phone] documented in this encounter Visit Diagnoses Diagnosis Osteomyelitis of left shoulder, unspecified type (HCC)- Primary Osteomyelitis of left shoulder, unspecified type (HCC) Iron deficiency anemia, unspecified iron deficiency anemia type ESRD (end stage renal disease) (HCC) End stage renal disease Chronic diastolic congestive heart failure (HCC) Chronic diastolic heart failure Essential hypertension ESRD (end stage renal disease) (HCC) End stage renal disease Type 2 diabetes mellitus with diabetic polyneuropathy (HCC) Type II or unspecified type diabetes mellitus with neurological manifestations, not stated as uncontrolled documented in this encounter Administered Medications Inactive Administered Medications - up to 3 most recent administrations Medication Order MAR Action Action Date Dose Rate Site 0.9% NaCl injection 1-10 mL 1-10 mL, Intracatheter, PRN, Other, peripheral line flush, Starting on 05/23/24 at 2219, Until Blue 06/03/24 at 1844, Flush peripheral IV catheter with 1-10 mL of normal saline before and after medications and prn to clear blood from the line or to verify patency. 0.9% NaCl injection 3 mL 3 mL, Intracatheter, EVERY 8 HOURS, First dose on Fri05/23/24 at 2300, Until Discontinued, Flush peripheral IV catheter with 3 mL of normal saline every 8 hours. $ Given 06/03/2024 2:09 PM CDT 3 mL $ Given 06/03/2024 5:37 AM CDT 3 mL $ Given 06/02/2024 8:38 PM CDT 3 mL acetaminophen (Tylenol) tablet 650 mg 650 mg, Oral, EVERY 6 HOURS PRN, Mild Pain, Starting on 05/23/24 at 2221, Until Blue 06/03/24 at 1844, Patient preference for lesser PRN pain meds [...] patient cannot tolerate oral intake $ Given 05/28/2024 12:51 PM CDT 650 mg $ Given 05/26/2024 1:16 PM CDT 650 mg amLODIPine (Norvasc) tablet 10 mg 10 mg, Oral, DAILY, First dose on Fri05/24/24 at 0900, Until Discontinued $ Given 06/02/2024 9:04 AM CDT 10 mg $ Given 05/31/2024 8:09 AM CDT 10 mg $ Given 05/30/2024 8:12 AM CDT 10 mg carvedilol (Coreg) tablet 12.5 mg 12.5 mg, Oral, 2 TIMES DAILY WITH MEALS, First dose on Fri05/24/24 at 0800, Until Discontinued, Take with food $ Given 06/02/2024 5:23 PM CDT 12.5 mg $ Given 06/02/2024 9:04 AM CDT 12.5 mg $ Given 06/01/2024 5:03 PM CDT 12.5 mg cefepime (Maxipime) 1,000 mg in 0.9% NaCl IV 50 mL IVPB 1,000 mg (1 g), at 100 mL/hr, Intravenous, EVERY 24 HOURS, First dose on Fri05/24/24 at 0900, Until Discontinued, Indication for anti-infective therapy: Documented infection, Site of anti-infective therapy: Bone/Joint $ New Bag/Syringe 05/26/2024 8:42 AM CDT 1,000 mg 100 mL/hr $ New Bag/Syringe 05/25/2024 1:06 PM CDT 1,000 mg 100 mL /hr $ New Bag/Syringe 05/24/2024 9:31 AM CDT 1,000 mg 100 mL /hr cefepime (Maxipime) 2,000 mg in 0.9% NaCl IV 50 mL IVPB 2,000 mg (2 g), at 100 mL/hr, Intravenous, EVERY , TH AND FRI, First dose (after last modification) on Blue 05/27/24 at 1700, Until Discontinued, After dialysis , Indication for anti-infective therapy: Documented infection, Site of anti-infective therapy: Bone/Joint Rate Change 06/01/2024 5:30 PM CDT 5 mL/hr Restarted 06/01/2024 5:13 PM CDT 100 mL/hr Current Rate 06/01/2024 5:02 PM CDT 100 mL/hr dextrose 10 % IV bolus 12.5 g, at 468.75 mL/hr, Intravenous, PRN, Other, Bedside Glucose less than 70 mg/dL -If NOT able to eat and/or NPO and with IV Access, Starting on Avery 05/23/24 at 2332, Until Blue 06/03/24 at 1844, If NOT able to eat and/or NPO [...] NPO and with IV Access, Starting on Avery 05/23/24 at 2332, Until Blue 06/03/24 at 1844, If NOT able to eat and/or NPO and with IV Access: For Bedside Glucose 54-69 mg/dL - give 12.5 g Dextrose IV STAT For Bedside Glucose LESS than 54 mg/dl - verify with a second Bedside Glucose (from [...] injection 5,000 Units, Intravenous, DIALYSIS EVERY FRI, BLUE & SAT, First dose on Fri06/01/24 at 1830, Until Discontinued, Do not shake vial. Refrigerate $ Given 06/03/2024 11:21 AM CDT 5,000 Units ferrous sulfate tablet 325 mg 325 mg, Oral, DAILY WITH BREAKFAST, First dose on Fri05/24/24 at 0800, Until Discontinued, Take with food. Do not take within 2 hours of other medications. $ Given 05/24/2024 9:15 AM CDT 325 mg furosemide (Lasix) tablet 40 mg 40 mg, Oral, EVERY FRI, FRI AND FRI, First dose on Fri05/24/24 at 1700, Until Discontinued $ Given 06/02/2024 5:23 PM CDT 40 mg $ Given 05/31/2024 6:29 PM CDT 40 mg $ Given 05/28/2024 5:51 PM CDT 40 mg gabapentin (Neurontin) capsule 100 mg 100 mg, Oral, 3 TIMES DAILY, First dose on Fri05/24/24 at 0900, Until Discontinued $ Given 06/03/2024 2:08 PM CDT 100 mg $ Given 06/03/2024 8:54 AM CDT 100 mg $ Given 06/02/2024 8:38 PM CDT 100 mg gadoterate meglumine (Dotarem/Clariscan) injection Intravenous, CONTRAST ONCE, Starting on Fri05/28/24 at 0844, Until Fri05/30/24 at 0843 $ Given - Contrast 05/28/2024 8:56 AM CDT 18 mL glucagon (Glucagen) injection 1 mg 1 mg, Subcutaneous, PRN, Bedside Glucose less than 70 mg/dL - If NOT able to eat and/or NPO and withOUT IV Access, Starting on Fri05/23/24 at 2332, Until Blue 06/03/24 at 1844, If NOT able to eat and/or NPO [...] Glucose less than 70 mg/dL, Starting on 05/23/24 at 2332, Until Blue 06/03/24 at 1844, If able to take oral medications: For [...] NOTIFY PROVIDER OF HYPOGLYCEMIC EVENT. heparin injection 1,000 Units 1,000 Units, Intravenous, ONCE, 1 dose, On 05/29/24 at 0930 $ Given 05/29/2024 9:10 AM CDT 1,000 Units heparin injection 4,100 Units 4,100 Units, Intracatheter, DIALYSIS PRN, cath dwell. Red lumen 2 ml blue lumen 2.1 ml, Starting on 05/25/24 at 0827, Until Blue 06/03/24 at 1844 $ Given 06/03/2024 11:22 AM CDT 4,100 Units $ Given 05/29/2024 1:00 PM CDT 4,100 Units heparin injection 5,000 Units 5,000 Units, Subcutaneous, 2 TIMES DAILY, First dose on Fri05/24/24 at 0900, Until Discontinued $ Given 06/03/2024 8:53 AM CDT 5,000 Units Abd Left Lower Quadrant $ Given 06/02/2024 8:38 PM CDT 5,000 Units R ight Arm $ Given 06/02/2024 9:05 AM CDT 5,000 Units A bdominal Tissue heparin injection 500 Units 500 Units, Intravenous, EVERY HOUR, 3 doses, First dose on 05/29/24 at 1015, Last dose on Fri05/29/24 at 1215 $ Given 05/29/2024 12:13 PM C DT 500 Units $ Given 05/29/2024 11:15 AM CDT 500 Units $ Given 05/29/2024 10:16 AM CDT 500 Units HYDROmorphone (Dilaudid) injection 0.5 mg 0.5 mg, Intravenous, EVERY 4 HOURS PRN, Severe Pain, Starting on Fri05/24/24 at 0124, Until Fri05/26/24 at 1259, Patient preference for lesser PRN pain meds [...] patient cannot tolerate oral intake $ Given 05/26/2024 8:35 A M CDT 0.5 mg $ Given 05/26/2024 3:15 AM CDT 0.5 mg $ Given 05/25/2024 9:39 PM CDT 0.5 mg HYDROmorphone (Dilaudid) injection 0.5 mg 0.5 mg, Intravenous, EVERY 4 HOURS PRN, Severe Pain, breakthrough, Starting on Fri05/26/24 at 1258, Until 05/29/24 at 1140, Patient preference for lesser PRN pain meds [...] patient cannot tolerate oral intake $ Given 05/29/2024 4:23 A M CDT 0.5 mg $ Given 05/28/2024 11:55 PM CDT 0.5 mg $ Given 05/28/2024 3:27 PM CDT 0.5 mg HYDROmorphone (Dilaudid) injection 0.5 mg 0.5 mg, Intravenous, EVERY 6 HOURS PRN, Severe Pain, breakthrough, Starting on 05/29/24 at 1145, Until Blue 06/03/24 at 1844, Patient preference for lesser PRN pain meds [...] patient cannot tolerate oral intake $ Given 06/03/2024 8:53 A M CDT 0.5 mg $ Given 06/03/2024 2:34 AM CDT 0.5 mg $ Given 06/02/2024 8:38 PM CDT 0.5 mg insulin aspart (NovoLOG) pen 0-12 Units 0-12 Units, Subcutaneous, 3 TIMES DAILY WITH MEALS, First dose on 05/24/24 at 1800, Until Discontinued, Standard Dose: Correction Insulin Bedside glucose should be done within 30-60 minutes of correction insulin administration. BG (mg/dL) Corrective Action LESS than 70 follow Hypoglycemic guidelines, 70-140 NO Correction insulin, 141-180 GIVE 2 units of insulin, 181-220 GIVE 4 units of insulin, 221-260 GIVE 6 units of insulin, 261-300 GIVE 8 units of insulin, 301-350 GIVE 10 units of insulin Greater than 350 GIVE 12 units of insulin and notify physician., If the patient is NPO; DO NOT HOLD correction insulin If patient is eating meals and has orders for Mealtime insulin, combine and give at the same time. $ Given 06/02/2024 1:10 PM CDT 4 Units Abdominal Tissue $ Given 06/02/2024 9:05 AM CDT 6 Units Ab dominal Tissue $ Given 05/31/2024 11:47 AM CDT 4 Units L eft Arm insulin aspart (NovoLOG) pen 0-6 Units 0-6 Units, Subcutaneous, EVERY 6 HOURS, First dose on Fri05/24/24 at 0600, Until Discontinued, Low Dose: Correction Insulin BG (mg/dL) Corrective Action LESS than 70 follow Hypoglycemic guidelines 70-180 NO Correction insulin 181-220 GIVE 2 units of insulin 221-260 GIVE 3 units of insulin 261-300 GIVE 4 units of insulin 301-350 GIVE 5 units of insulin Greater than 350 GIVE 6 units of insulin and notify physician DO NOT HOLD if Patient is NPO. If patient has orders for Mealtime insulin combine and give at same time. $ Given 05/24/2024 12:30 PM CDT 3 Units Rig ht Arm $ Given 05/24/2024 6:03 AM CDT 3 Units Ri ght Arm insulin aspart (NovoLOG) pen 0-6 Units 0-6 Units, Subcutaneous, 3 TIMES DAILY WITH MEALS, First dose on Fri06/03/24 at 0900, Until Discontinued, Low Dose: Correction Insulin Bedside [...] combine and give at the same time. insulin glargine (Lantus) pen 6 Units 6 Units, Subcutaneous, EVERY 24 HOURS, First dose on Fri05/25/24 at 1000, Until Discontinued, Obtain current Blood Glucose if necessary . WASTE DISPOSAL INSTRUCTIONS: Black Bin Disposal required. $ Given 05/25/2024 12:50 PM CDT 6 Units Abdominal Tissue insulin glargine (Lantus) pen 6 Units 6 Units, Subcutaneous, DAILY, First dose (after last modification) on Fri05/26/24 at 0900, Until Discontinued, Obtain current Blood Glucose if necessary . WASTE DISPOSAL INSTRUCTIONS: Black Bin Disposal required. $ Given 05/26/2024 11:23 AM CDT 6 Units Right Arm insulin glargine (Lantus) pen 8 Units 8 Units, Subcutaneous, DAILY, First dose (after last modification) on Blue 05/27/24 at 1000, Until Discontinued, Obtain current Blood Glucose if necessary . WASTE DISPOSAL INSTRUCTIONS: Black Bin Disposal required. $ Given 06/03/2024 2:09 PM CDT 8 Units Abd Left Lower Quadr ant $ Given 06/02/2024 9:06 AM CDT 8 Units Ab dominal Tissue $ Given 06/01/2024 8:29 AM CDT 8 Units Ri ght Arm lisinopril (Prinivil; Zestril) tablet 20 mg 20 mg, Oral, DAILY, First dose on Fri05/24/24 at 0900, Until Discontinued $ Given 06/02/2024 9:04 AM CDT 20 mg $ Given 05/31/2024 8:09 AM CDT 20 mg $ Given 05/30/2024 9:53 AM CDT 20 mg ondansetron (disintegrating) (Zofran ODT) tablet 4 mg 4 mg, Oral, EVERY 6 HOURS PRN, Nausea/Vomiting, Starting on 05/23/24 at 2221, Until Blue 06/03/24 at 1844, Dissolved orally on tongue $ Given 06/02/2024 5:25 PM CDT 4 mg ondansetron (Zofran) injection 4 mg 4 mg, Intravenous, EVERY 6 HOURS PRN, Nausea/Vomiting, Starting on 05/23/24 at 2221, Until Blue 06/03/24 at 1844, Administer IV if patient is NPO, actively vomiting, or unable to swallow. $ Given 06/03/2024 10:12 AM CDT 4 mg $ Given 06/03/2024 12:13 AM CDT 4 mg $ Given 06/01/2024 10:37 AM CDT 4 mg oxyCODONE (immediate release) (Roxicodone) tablet 10 mg 10 mg, Oral, EVERY 6 HOURS PRN, Severe Pain, Starting on Fri05/26/24 at 1259, Until 05/29/24 at 1140, Patient preference for lesser PRN pain meds [...] patient cannot tolerate oral intake $ Given 05/29/2024 7:34 AM CDT 10 mg $ Given 05/28/2024 12:51 PM CDT 10 mg $ Given 05/28/2024 7:01 AM CDT 10 mg oxyCODONE (immediate release) (Roxicodone) tablet 10 mg 10 mg, Oral, EVERY 4 HOURS PRN, Severe Pain, Starting on 05/29/24 at 1145, Until Blue 06/03/24 at 1844, Patient preference for lesser PRN pain meds [...] patient cannot tolerate oral intake $ Given 06/03/2024 5:34 AM CDT 10 mg $ Given 06/02/2024 11:34 PM CDT 10 mg $ Given 06/02/2024 5:23 PM CDT 10 mg oxyCODONE (immediate release) (Roxicodone) tablet 5 mg 5 mg, Oral, EVERY 4 HOURS PRN, Moderate Pain, Starting on 05/29/24 at 1145, Until Blue 06/03/24 at 1844, Patient preference for lesser PRN pain meds [...] first unless patient cannot tolerate oral intake polyethylene glycol 3350 (Miralax) packet 17 g 17 g, Oral, DAILY, First dose (after last modification) on Fri05/28/24 at 1645, Until Discontinued, Mix in 8 ounces of water, juice, soda, coffee or tea prior to administration renal vitamin (Dialyvite) tablet 1 tablet 1 tablet, Oral, DAILY, First dose on Fri05/24/24 at 0900, Until Discontinued $ Given 06/03/2024 8:54 AM CDT 1 tablet $ Given 06/02/2024 9:03 AM CDT 1 tablet $ Given 06/01/2024 8:26 AM CDT 1 tablet senna (Senokot) tablet 17.2 mg 17.2 mg, Oral, DAILY, First dose (after last modification) on Fri05/29/24 at 0900, Until Discontinued senna (Senokot) tablet 8.6 mg 8.6 mg, Oral, DAILY, First dose on Fri05/24/24 at 0900, Until Discontinued $ Given 05/27/2024 12:40 PM CDT 8.6 mg $ Given 05/25/2024 12:49 PM CDT 8.6 mg $ Given 05/24/2024 9:14 AM CDT 8.6 mg sevelamer carbonate (Renvela) tablet 800 mg 800 mg, Oral, 3 TIMES DAILY WITH MEALS, First dose on Fri05/24/24 at 0800, Until Discontinued $ Given 06/03/2024 11:25 AM CDT 800 mg $ Given 06/03/2024 8:54 AM CDT 800 mg $ Given 06/02/2024 5:23 PM CDT 800 mg vancomycin (Vancocin) 1,000 mg in 0.9% NaCl IV 250 mL IVPB 1,000 mg, at 250 mL/hr, Intravenous, ONCE, 1 dose, On Fri05/25/24 at 1700, Indication for anti-infective therapy: Documented infection, Site of anti-infective therapy: Bone/Joint $ New Bag/Syringe 05/25/2024 7:16 PM CDT 1,000 mg 250 mL/hr vancomycin (Vancocin) 1,000 mg in 0.9% NaCl IV 250 mL IVPB 1,000 mg, at 250 mL/hr, Intravenous, ONCE, 1 dose, On Fri05/27/24 at 1700, Administer after HD session, Indication for anti-infective therapy: Documented infection, Site of anti-infective therapy: Bone/Joint $ New Bag/Syringe 05/27/2024 6:56 PM CDT 1,000 mg 250 mL/hr vancomycin (Vancocin) 750 mg in 0.9% NaCl IV 250 mL IVPB 750 mg, at 333.33 mL/hr, Intravenous, ONCE, 1 dose, On 05/29/24 at 1700, Indication for anti-infective therapy: Documented infection, Site of anti-infective therapy: Bone/Joint $ New Bag/Syringe 05/29/2024 5:43 PM CDT 750 mg 333.33 mL/hr vancomycin (Vancocin) 750 mg in 0.9% NaCl IV 250 mL IVPB 750 mg, at 333.33 mL/hr, Intravenous, EVERY , AND FRI, First dose on Fri06/01/24 at 1700, Until Discontinued, To be given after dialysis on dialysis days. If the patient misses an HD session or doesn't complete it, please call pharmacy! , Indication for anti-infective therapy: Documented infection, Site of anti-infective therapy: Bone/Joint $ New Bag/Syringe 06/01/2024 5:34 PM CDT 750 mg 333.33 mL/hr vancomycin (Vancocin) IV dose per pharmacy Does not apply, DIRECTED, Starting on Fri05/24/24 at 0126, Until Blue 06/03/24 at 1844, Pharmacy will write all orders for vancomycin including dosages and when to draw levels. (IF DOSE IS DELAYED, CALL PHARMACY TO ADJUST TIMES. DO NOT GO BACK TO ORIGINAL SCHEDULE) - Patient had been on vancomycin at [facility] prior to transfer , Indication for anti-infective therapy: Documented infection, Site of anti-infective therapy: Bone/Joint documented in this encounter Active and Recently Administered Medications Times are shown in CDT. Scheduled Medication Order 06/01/2024 06/02/2024 06/03/2024 0.9% NaCl injection 3 mL(Linked Group 1) 3 mL, Intracatheter, EVERY 8 HOURS, First dose on Fri05/23/24 at 2300, Until Discontinued, Flush peripheral IV catheter with 3 mL of normal saline every 8 hours. 0544 ($ Given - Provider: Kwan Morfin RN)1700 ($ Given - Provider: Ildefonso Perez RN)2105 ($ Given - Provider: Joy Stein RN) 0300 ($ Given - Provider: Joy Stein, RN)0600 (Canceled Entry - Provider: Joy Stein RN)1437 (Canceled Entry - Provider: Niecy Benedict RN)203 ($ Given - Provider: Joy Stein RN) 0537 ($ Given - Provider: Quin Haynes RN)1409 ($ Given - Provider: Saskia Long, JIMMIE) amLODIPine (Norvasc) tablet 10 mg 10 mg, Oral, DAILY, First dose on Fri05/24/24 at 0900, Until Discontinued 0825 (Not Administered - Provider: Ildefonso Perez RN - Reason: Other) 0904 ($ Given - Provider: Niecy Benedict RN) 0906 (Not Administered - Provider: Saskia Long RN - Reason: Other - Comment: dialysis) carvedilol (Coreg) tablet 12.5 mg 12.5 mg, Oral, 2 TIMES DAILY WITH MEALS, First dose on Fri05/24/24 at 0800, Until Discontinued, Take with food 0826 (Not Administered - Provider: Ildefonso Perez RN - Reason: Other)1703 ($ Given - Provider: Ildefonso Perez RN) 0904 ($ Given - Provider: Niecy Benedict, JIMMIE)1723 ($ Given - Provider: Niecy Benedict RN) 0906 (Not Administered - Provider: Saskia Long RN - Reason: Other - Comment: dialysis) cefepime (Maxipime) 2,000 mg in 0.9% NaCl IV 50 mL IVPB 2,000 mg (2 g), at 100 mL/hr, Intravenous, EVERY , AND FRI, First dose (after last modification) on Fri05/27/24 at 1700, Until Discontinued, After dialysis , Indication for anti-infective therapy: Documented infection, Site of anti-infective therapy: Bone/Joint 170 ($ New Bag/Syringe - Provider: Ildefonso Perez RN)1702 (Current Rate - Provider: Ildefonso Perez RN)1709 (Paused - Provider: Ildefonso Perez RN)1713 (Restarted - Provider: Ildefonso Perez RN)1730 (Rate Change - Provider: Ildefonso Perez RN)1732 (Stopped - Provider: Ildefonso Perez RN)1733 (Stopped - Provider: Ildefonso Perez RN) 1732 (Not Administered - Provider: Saskia Long RN - Reason: Loss of Access) epoetin carlin-EPBX (Retacrit) 5,000 unit injection 5,000 Units, Intravenous, DIALYSIS EVERY FRI, BLUE & SAT, First dose on Fri06/01/24 at 1830, Until Discontinued, Do not shake vial. Refrigerate 2140 (Canceled Entry - Provider: Joy Stein RN) 1121 ($ Given - Provider: Marvin Suarez RN) furosemide (Lasix) tablet 40 mg 40 mg, Oral, EVERY FRI, FRI AND FRI, First dose on Fri05/24/24 at 1700, Until Discontinued 172 ($ Given - Provider: Niecy Benedict RN) gabapentin (Neurontin) capsule 100 mg 100 mg, Oral, 3 TIMES DAILY, First dose on Fri05/24/24 at 0900, Until Discontinued 825 ($ Given - Provider: Ildefonso Perez RN)1655 ($ Given - Provider: Ildefonso Perez RN)2105 ($ Given - Provider: Joy Stein RN) 0903 ($ Given - Provider: Niecy Benedict, JIMMIE)1310 ($ Given - Provider: Niecy Benedict, JIMMIE)203 ($ Given - Provider: Joy Stein RN) 0854 ($ Given - Provider: Saskia Long, JIMMIE)1408 ($ Given - Provider: Saskia Long, JIMMIE) heparin injection 5,000 Units 5,000 Units, Subcutaneous, 2 TIMES DAILY, First dose on Fri05/24/24 at 0900, Until Discontinued 825 ($ Given - Provider: Ildefonso Perez RN)210 ($ Given - Provider: Joy Stein RN) 0905 ($ Given - Provider: Niecy Benedict, JIMMIE)203 ($ Given - Provider: Joy Stein RN) 0853 ($ Given - Provider: Saskia Long, JIMMIE) insulin aspart (NovoLOG) pen 0-12 Units (CANCELED) 0-12 Units, Subcutaneous, 3 TIMES DAILY WITH MEALS, First dose on Fri05/24/24 at 1800, Until Discontinued, Standard Dose: Correction Insulin Bedside glucose should be done within 30-60 minutes of correction insulin administration. BG (mg/dL) Corrective Action LESS than 70 follow Hypoglycemic guidelines, 70-140 NO Correction insulin, 141-180 GIVE 2 units of insulin, 181-220 GIVE 4 units of insulin, 221-260 GIVE 6 units of insulin, 261-300 GIVE 8 units of insulin, 301-350 GIVE 10 units of insulin Greater than 350 GIVE 12 units of insulin and notify physician., If the patient is NPO; DO NOT HOLD correction insulin If patient is eating meals and has orders for Mealtime insulin, combine and give at the same time. 0828 (Not Administered - Provider: Ildefonso Perez RN - Reason: Per Administration Instructions)1642 (Not Administered - Provider: Ildefonso Perez RN - Reason: See Comments)1703 (Not Administered - Provider: Ildefonso Perez RN - Reason: Per Administration Instructions) 0905 ($ Given - Provider: Niecy Benedict RN)1310 ($ Given - Provider: Niecy Benedict RN)1709 (Not Administered - Provider: Niecy Benedict RN - Reason: Per Administration Instructions) 0906 (Not Administered - Provider: Saskia Long RN - Reason: Discontinued by physician) insulin aspart (NovoLOG) pen 0-6 Units 0-6 Units, Subcutaneous, 3 TIMES DAILY WITH MEALS, First dose on Fri06/03/24 at 0900, Until Discontinued, Low Dose: Correction Insulin Bedside [...] combine and give at the same time. 0856 (Not Administered - Provider: Saskia Long RN - Reason: Per Administration Instructions)1409 (Not Administered - Provider: Saskia Long RN - Reason: Per Administration Instructions) insulin glargine (Lantus) pen 8 Units 8 Units, Subcutaneous, DAILY, First dose (after last modification) on Blue 05/27/24 at 1000, Until Discontinued, Obtain current Blood Glucose if necessary . WASTE DISPOSAL INSTRUCTIONS: Black Bin Disposal required. 0829 ($ Given - Provider: Ildefonso Perez RN) 0906 ($ Given - Provider: Niecy Benedict, JIMMIE) 1409 ($ Given - Provider: Saskia Long, JIMMIE) lisinopril (Prinivil; Zestril) tablet 20 mg 20 mg, Oral, DAILY, First dose on Fri05/24/24 at 0900, Until Discontinued 1000 (Not Administered - Provider: Ildefonso Perez RN - Reason: Other) 09 ($ Given - Provider: Niecy Benedict, JIMMIE) 09 (Not Administered - Provider: Saskia Long RN - Reason: Other - Comment: dialysis) polyethylene glycol 3350 (Miralax) packet 17 g 17 g, Oral, DAILY, First dose (after last modification) on Fri05/28/24 at 1645, Until Discontinued, Mix in 8 ounces of water, juice, soda, coffee or tea prior to administration 0839 (Not Administered - Provider: Ildefonso Perez RN - Reason: Refused-Patient) 09 (Not Administered - Provider: Niecy Benedict RN - Reason: Refused-Patient) 09 (Not Administered - Provider: Saskia Long RN - Reason: Refused-Patient) renal vitamin (Dialyvite) tablet 1 tablet 1 tablet, Oral, DAILY, First dose on Fri05/24/24 at 0900, Until Discontinued 0826 ($ Given - Provider: Ildefonso Perez RN) 0903 ($ Given - Provider: Niecy Benedict, JIMMIE) 0854 ($ Given - Provider: Saskia Long, JIMMIE) senna (Senokot) tablet 17.2 mg 17.2 mg, Oral, DAILY, First dose (after last modification) on Fri05/29/24 at 0900, Until Discontinued 0839 (Not Administered - Provider: Ildefonso Perez RN - Reason: Refused-Patient) 0900 (Not Administered - Provider: Niecy Benedict RN - Reason: Refused-Patient) 0907 (Not Administered - Provider: Saskia Long RN - Reason: Refused-Patient) sevelamer carbonate (Renvela) tablet 800 mg 800 mg, Oral, 3 TIMES DAILY WITH MEALS, First dose on Fri05/24/24 at 0800, Until Discontinued 0826 ($ Given - Provider: Ildefonso Perez RN)1643 (Not Administered - Provider: Ildefonso Perez RN - Reason: See Comments)1655 ($ Given - Provider: Ildefonso Perez RN) 0903 ($ Given - Provider: Niecy Benedict, JIMMIE)1310 ($ Given - Provider: Niecy Benedict, RN)1723 ($ Given - Provider: Niecy Benedict, RN) 0854 ($ Given - Provider: Saskia Long, RN)1125 ($ Given - Provider: Saskia Long, JIMMIE - Comment: dialysis) vancomycin (Vancocin) 750 mg in 0.9% NaCl IV 250 mL IVPB 750 mg, at 333.33 mL/hr, Intravenous, EVERY , AND FRI, First dose on Fri06/01/24 at 1700, Until Discontinued, To be given after dialysis on dialysis days. If the patient misses an HD session or doesn't complete it, please call pharmacy! , Indication for anti-infective therapy: Documented infection, Site of anti-infective therapy: Bone/Joint 173 ($ New Bag/Syringe - Provider: Ildefonso Perez RN)1907 (Stopped - Provider: Ildefonso Perez RN) vancomycin (Vancocin) IV dose per pharmacy Does not apply, DIRECTED, Starting on Fri05/24/24 at 0126, Until Fri06/03/24 at 1844, Pharmacy will write all orders for vancomycin including dosages and when to draw levels. (IF DOSE IS DELAYED, CALL PHARMACY TO ADJUST TIMES. DO NOT GO BACK TO ORIGINAL SCHEDULE) - Patient had been on vancomycin at [facility] prior to transfer , Indication for anti-infective therapy: Documented infection, Site of anti-infective therapy: Bone/Joint PRN Medication Order 06/01/2024 06/02/2024 06/03/2024 0.9% NaCl injection 1-10 mL(Linked Group 1) 1-10 mL, Intracatheter, PRN, Other, peripheral line flush, Starting on Fri05/23/24 at 2219, Until Fri24 at 1844, Flush peripheral IV catheter with 1-10 mL of normal saline before and after medications and prn to clear blood from the line or to verify patency. acetaminophen (Tylenol) tablet 650 mg 650 mg, Oral, EVERY 6 HOURS PRN, Mild Pain, Starting on Avery 05/23/24 at 2221, Until [facility] 06/03/24 at 1844, Patient preference for lesser PRN pain meds [...] intake dextrose 10 % IV bolus(Linked Group 2) 12.5 g, at 468.75 mL/hr, Intravenous, PRN, Other, Bedside Glucose less than 70 mg/dL -If NOT able to eat and/or NPO and with IV Access, Starting on Avery 05/23/24 at 2332, Until Blue 06/03/24 at 1844, If NOT able to eat and/or NPO [...] EVENT. dextrose 10 % IV bolus(Linked Group 2) 25 g, at 937.5 mL/hr, Intravenous, PRN, Other, Bedside Glucose less than 70 mg/dL -If NOT able to eat and/or NPO and with IV Access, Starting on Avery 05/23/24 at 2332, Until Blue 06/03/24 at 1844, If NOT able to eat and/or NPO and with IV Access: For Bedside Glucose 54-69 mg/dL - give 12.5 g Dextrose IV STAT For Bedside Glucose LESS than 54 mg/dl - verify with a second Bedside Glucose (from [...] NPO and withOUT IV Access, Starting on 05/23/24 at 2332, Until Blue 06/03/24 at 1844, If NOT able to eat and/or NPO [...] Glucose less than 70 mg/dL, Starting on 05/23/24 at 2332, Until Blue 06/03/24 at 1844, If able to take oral medications: For [...] NOTIFY PROVIDER OF HYPOGLYCEMIC EVENT. heparin injection 4,100 Units 4,100 Units, Intracatheter, DIALYSIS PRN, cath dwell. Red lumen 2 ml blue lumen 2.1 ml, Starting on 05/25/24 at 0827, Until Blue 06/03/24 at 1844 1122 ($ Given - Provider: Marvin Suarez RN - Comment: lock) HYDROmorphone (Dilaudid) injection 0.5 mg 0.5 mg, Intravenous, EVERY 6 HOURS PRN, Severe Pain, breakthrough, Starting on 05/29/24 at 1145, Until Blue 06/03/24 at 1844, Patient preference for lesser PRN pain meds [...] first unless patient cannot tolerate oral intake 0013 ($ Given - Provider: Kwan Morfin RN)1038 ($ Given - Provider: Ildefonso Perez RN)2105 ($ Given - Provider: Joy Stein RN) 0300 ($ Given - Provider: Joy Stein RN)1316 ($ Given - Provider: Niecy Benedict, JIMMIE)2038 ($ Given - Provider: Joy Stein RN) 0234 ($ Given - Provider: Quin Haynes RN)0853 ($ Given - Provider: Saskia Long, JIMMIE) ondansetron (disintegrating) (Zofran ODT) tablet 4 mg(Linked Group 3) 4 mg, Oral, EVERY 6 HOURS PRN, Nausea/Vomiting, Starting on Fri05/23/24 at 2221, Until Blue 06/03/24 at 1844, Dissolved orally on tongue 1037 (See Alternative - Provider: Ildefonso Perez RN) 1725 ($ Given - Provider: Niecy Benedict, JIMMIE) 0013 (See Alternative - Provider: Quin HaynesJIMMIE)1012 (See Alternative - Provider: Marvin Suarez RN) ondansetron (Zofran) injection 4 mg(Linked Group 3) 4 mg, Intravenous, EVERY 6 HOURS PRN, Nausea/Vomiting, Starting on 05/23/24 at 2221, Until Blue 06/03/24 at 1844, Administer IV if patient is NPO, actively vomiting, or unable to swallow. 1037 ($ Given - Provider: Ildefonso Perez RN) 1725 (See Alternative - Provider: Niecy Benedict RN) 0013 ($ Given - Provider: Quin Haynes RN)1012 ($ Given - Provider: Marvin Suarez RN) oxyCODONE (immediate release) (Roxicodone) tablet 10 mg(Linked Group 4) 10 mg, Oral, EVERY 4 HOURS PRN, Severe Pain, Starting on 05/29/24 at 1145, Until Blue 06/03/24 at 1844, Patient preference for lesser PRN pain meds [...] first unless patient cannot tolerate oral intake 1655 ($ Given - Provider: Ildefonso Perez RN) 0904 ($ Given - Provider: Niecy Benedict RN)1723 ($ Given - Provider: Niecy Benedict RN)2334 ($ Given - Provider: Quin Haynes RN) 0534 ($ Given - Provider: Quin Haynes RN) oxyCODONE (immediate release) (Roxicodone) tablet 5 mg(Linked Group 4) 5 mg, Oral, EVERY 4 HOURS PRN, Moderate Pain, Starting on 05/29/24 at 1145, Until Blue 06/03/24 at 1844, Patient preference for lesser PRN pain meds [...] first unless patient cannot tolerate oral intake 1655 (See Alternative - Provider: Ildefonso Perez, RN) 0904 (See Alternative - Provider: Niecy Benedict, RN)1723 (See Alternative - Provider: Niecy Beneidct, RN)2334 (See Alternative - Provider: Quin Haynes, RN) 0534 (See Alternative - Provider: Quin Haynes, RN) Linked Groups Order Group 1: SALINE LOCK, INSERT AND MAINTAIN (CANCELED) Routine, CONTINUOUS, Starting on Avery 05/23/24 at 2230, Until Specified, New collection And 0.9% NaCl injection 3 mLJump to med 3 mL, Intracatheter, EVERY 8 HOURS, First dose on Avery 05/23/24 at 2300, Until Discontinued, Flush peripheral IV catheter with 3 mL of normal saline every 8 hours. And 0.9% NaCl injection 1-10 mLJump to med 1-10 mL, Intracatheter, PRN, Other, peripheral line flush, Starting on Avery 05/23/24 at 2219, Until [facility] 06/03/24 at 1844, Flush peripheral IV catheter with 1-10 mL of normal saline before and after medications and prn to clear blood from the line or to verify patency. Group 2: dextrose 10 % IV bolusJump to med 12.5 g, at 468.75 mL/hr, Intravenous, PRN, Other, Bedside Glucose less than 70 mg/dL -If NOT able to eat and/or NPO and with IV Access, Starting on Avery 05/23/24 at 2332, Until [facility] 06/03/24 at 1844, If NOT able to eat and/or NPO [...] NPO and with IV Access, Starting on 05/23/24 at 2332, Until Blue 06/03/24 at 1844, If NOT able to eat and/or NPO and with IV Access: For Bedside Glucose 54-69 mg/dL - give 12.5 g Dextrose IV STAT For Bedside Glucose LESS than 54 mg/dl - verify with a second Bedside Glucose (from [...] NPO and withOUT IV Access, Starting on Fri05/23/24 at 2332, Until Blue 06/03/24 at 1844, If NOT able to eat and/or NPO [...] immediately and discard unused portion Group 3: ondansetron (disintegrating) (Zofran ODT) tablet 4 mgJump to med 4 mg, Oral, EVERY 6 HOURS PRN, Nausea/Vomiting, Starting on Fri05/23/24 at 2221, Until Blue 06/03/24 at 1844, Dissolved orally on tongue Or ondansetron (Zofran) injection 4 mgJump to med 4 mg, Intravenous, EVERY 6 HOURS PRN, Nausea/Vomiting, Starting on Fri05/23/24 at 2221, Until Blue 06/03/24 at 1844, Administer IV if patient is NPO, actively vomiting, or unable to swallow. Group 4: oxyCODONE (immediate release) (Roxicodone) tablet 5 mgJump to med 5 mg, Oral, EVERY 4 HOURS PRN, Moderate Pain, Starting on 05/29/24 at 1145, Until Blue 06/03/24 at 1844, Patient preference for lesser PRN pain meds [...] 4 HOURS PRN, Severe Pain, Starting on 05/29/24 at 1145, Until Blue 06/03/24 at 1844, Patient preference for lesser PRN pain meds [...] VRE 02/24/2024 02/24/2024 05/24/2024 7:16 AM CDT MRSA Hx 05/24/2024 05/24/2024 VRE Hx 05/24/2024 05/24/2024 documented as of this encounter Care Teams Table Tender Sludge Relationship Specialty Start Date End Date Cherise Marcelo PA-C [address] [place] [id number] PCP - General 02/23/24 documented as of this encounter
--- OUTSIDE RECORDS SUMMARY | 2024-11-17 03:01 | XMS_ITS | Encounter Summary ---
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 Not hard at all 05/18/2023 [facility] [place] [facility] - Occupational Stress [...] encounter Miscellaneous Notes * Telephone Encounter - Fatemeh Echeverria, JIMMIE - 06/05/2023 9:07 AM CDT Gene Alfaro spoke to Mary and rescheduled pt 06/10/23. * Telephone Encounter - Lulú Zamorano - 06/04/2023 8:23 AM CDT Current Provider name: [facility] Reason for call: Ms. Gay Canales missed her OPAT appt and [facility] would like to reschedule her appt. Please call Mary [phone]. Thanks. 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
--- OUTSIDE RECORDS SUMMARY | 2024-11-17 03:01 | XMS_ITS | Encounter Summary ---
Author Organization [facility] Address [address] [place] [address] Care Team Providers Care Histopath Tech Name Role Phone Cherise Marcelo PA-C Primary Care Provider Reason for Referral * Evaluate & Treat (Routine) - Closed Specialty Diagnoses / Procedures Referred By Contac t Referred To Contact Infectious Disease Diagnoses Shoulder abscess Martine Morrissey MD [address] [facility] [address] OF [facility] [place] [address] [facility] [address] [facility], [place] [address] Referral ID Status Reason Start Date Expiration Date V isits Requested Visits Authorized [id number] Closed Discharge Follow-up 03/02/2024 03/02/2025 1 1 * Evaluate & Treat (Routine) - Closed Specialty Diagnoses / Procedures Referred By Contac t Referred To Contact Orthopedics Diagnoses Shoulder abscess Martine Morrissey MD [address] [facility] [address] OF [facility] [place] [address] [facility] [address] [place] [address] Referral ID Status Reason Start Date Expiration Date V isits Requested Visits Authorized [id number] Closed Discharge Follow-up 03/02/2024 03/02/2025 1 1 Reason for Visit * Auth/Cert (Routine) Specialty Diagnoses / Procedures Referred By Contac t Referred To Contact Diagnoses R shoulder septic arthritis Referral ID Status Reason Start Date Expiration Date Visits Re quested Visits Authorized [id number] 1 1 Encounter Details Date Type Department Care Team (Late st Contact Info) Description 02/22/2024 8:14 PM CDT - 03/02/2024 5:25 PM CDT Hospital Encounter Chris GARZA [address] [facility] [place] [phone] Justyn Galvez DO [address] [place] [address] Rafa Patel MD [address] [place] [address] Kranthi Miles MD [address] [place] [phone] Joe Vargas MD [address] [place] [id number] Geronimo Burleson MD [address] [place] [address] Martine Morrissey MD [address] [facility] 2L DIV OF [facility] [place] [phone] Internal Medicine Discharge Disposition: Nursing Facility:Medicaid Social History Tobacco Use Types Packs/Day Years [...] Date Recorded PHQ2 TOTAL SCORE 0 06/10/2023 [facility] - [...] Sign Reading Time Taken Comments Blood Pressure 111/67 03/02/2024 5:04 PM CDT Pulse 78 03/02/2024 5:04 PM CDT Temperature 36.6 ??C (97.8 ??F) 03/02/2024 5:04 PM CD T Respiratory Rate 17 03/02/2024 5:04 PM CDT Oxygen Saturation 95% 03/02/2024 5:04 PM CDT Inhaled Oxygen Concentration - - Weight 98.9 kg (218 lb) 02/26/2024 3:01 PM CDT p er patient Height 170.2 cm (5' 7 ) 02/26/2024 3:01 PM CDT Body Mass Index 34.14 02/26/2024 3:01 PM CDT documented in this encounter Functional [...] No 02/23/2024 documented as of this encounter Discharge Summaries * Martine Morrissey MD - 03/02/2024 4:45 PM CDT Hospital Discharge Summary Gay Canales [id number] 33 year old 1990 Admit date: 02/22/2024 Discharge date: 03/02/2024 Admitting Physician: Justyn Galvez, DO Discharge Physician: Martine Morrissey MD Present on Admission: ??? 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) ??? Essential hypertension ??? MRSA bacteremia ??? S/P AKA (above knee amputation) unilateral, left (HCC) ??? 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 (HCC) ??? Anemia ??? ESRD (end stage renal disease) (HCC) ??? 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 Insomnia ??? Abscess of left shoulder ??? Leukocytosis ??? 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 imaging with CT and MRI at OSH demonstrated??subacromial/subdeltoid bursitis/abscess with involvement of muscle and osteomyelitis.??Pt was initially started on vanc/johnny/cefe, then vanc/johnny, then transitioned to vanc/cefe on 02/17 at OSH.?? With High concern for seeding and possible endocarditis given multiple areas of infection; TTE performed with no vegetations. MATT not performed.OSH ortho unable to intervene given comorbidities. and pt was transferred to [facility] on 02/21 for higher level of care. On admission to [facility], labs s/f leukocytosis(WBC 18>16.8), lactic wnl (1.3), elevated CRP of 8.3, elevated ESR 116, elevated eosinophils (10.7%). UA s/f 3+ LE, >100 WBC, 11-20 squams, trace bacteria, occasional yeast budding, among otherfindings. On vanc and cefe empirically.??Ortho performed R shoulder aspiration (5cc)??which demonstrated??4376 PMN w/ 94% neutrophils; not concerning for septic R shoulder. ACS and ortho recommendingIR drainage of L shoulder abscesses. Status post ultrasound-guided aspiration of left shoulder by IR on 02/24. Gram stain showed no organisms and culture negative to date. Follow up blood cultures (02/21) negative to date. Cx from 02/21 synovial NGTD, ID recommended to continue IV antibiotics with vancomycin with EOT 04/07/2024, nephrology consulted and inpatient hemodialysis continued. Urine culture grew VRE but patient remained asymptomatic, per ID no need to treat. Patient is medically optimized to be discharged back to her facility in a stable condition with orthopedics and ID Clinic follow-ups and discharge instructions as mentioned below. Consults: General surgery, ID, Nephrology, Orthopedic surgery Pending Labs and Studies: Discharge Communication: Patient's hospital course was conveyed to patient Significant Diagnostic Studies: CBC: Recent Labs Lab Units 03/02/2433703/01/2430902/29/24 0127 WBC x10E9/L 14.0* 14.1* 14.0* RBC x10E12/L 3.03* 3.02* 3.09* HGB g/dL 8.8* 9.0* 9.0* HCT % 29.2* 28.7* 29.5* BMP: Recent Labs Lab Units 03/02/2433703/01/2430902/29/24 012 NA mmol/L 137 135* 135* CL mmol/L 102 106 104 CO2 mmol/L 25 21* 24 BUN mg/dL 39* 28* 16 CREATININE mg/dL 7.43* 5.80* 3.73* CALCIUM mg/dL 8.8 8.8 8.3* Magnesium: No results for input(s): MG in the last 168 hours. Phosphorus: Recent Labs Lab Units 03/02/2433703/01/2430902/29/24 0127 PHOS mg/dL 7.3* 6.1* 4.1 CT GUIDED NEEDLE PLACEMENT Result Date: 02/27/2024 Impression: Ultrasound guided aspiration of left scapula/shoulder collection fluid from the left shoulder collection, as described above. I performed/was present throughout the procedure and providedthe moderate sedation service. Please see nursing flow chart for more details. . > Interpreting Provider: Tommie Quintanilla MD on 02/27/2024 8:34 AM IR CENTRAL LINE REPLACE Result Date: 02/25/2024 IMPRESSION: Successful replacement of central line under fluoroscopic guidance. > Interpreting Provider: Husam Palacios MD on 02/25/2024 11:22 AM Discharge Exam: Blood pressure 104/68, pulse 75, temperature 97.8 ??F (36.6 ??C), temperature source Oral, resp. rate 17, height 1.702 m (5' 7 ), weight 98.9 kg (218 lb), last menstrual period 08/08/2022, SpO2 92%, not currently . GEN: in NAD CHEST: Clear to auscultation bilaterally HEART: Regular rate and rhythm, Nl S1 and S2 No gallops. GI: Abdomen soft and non tender, non-distended, +BS EXT: No edema. PSYCH: Alert and oriented to person place time and situation. Good mood, appropriate affect. Disposition: [facility] facility Patient Instructions: Medication List START taking these medications acetaminophen 500 MG tablet Commonly known as: Tylenol Take 1 (one) tablet by mouth every 4 hours Maximum allowable Acetaminophen amount = 4 Grams (4000 mg) / 24 hours. amLODIPine 10 MG tablet Commonly known as: Norvasc Take 1 (one) tablet by mouth once daily bisacodyl 10 MG suppository Commonly known as: Dulcolax Insert 1 (one) suppository into the rectum once daily as needed for Constipation polyethylene glycol 3350 17 g packet Commonly known as: Miralax Take 17 (seventeen) g by mouth once daily renal vitamin tablet Take 1 (one) tablet by mouth once daily sennosides 8.6 MG tablet Commonly known as: Senokot Take 1 (one) tablet by mouth once daily sevelamer carbonate 800 MG Commonly known as: Renvela Take 1 (one) tablet by mouth 3 times daily with meals vancomycin (VANCOCIN) IV dose per pharmacy Commonly known as: Vancocin Dose per pharmacy - to be administered with hemodialysis. CHANGE how you take these medications lisinopril 20 MG tablet Commonly known as: Prinivil; Zestril Take 1 (one) tablet by mouth once daily What changed: ?? medication strength ?? how much to take CONTINUE taking these medications Alcohol Prep 70 % USE ONE SWAB TO CLEAN SKIN FOUR TIMES DAILY BEFORE TESTING carvedilol 12.5 MG tablet Commonly known as: Coreg Take 1 (one) tablet by mouth 2 times daily with morning and evening meal FeroSul 325 (65 Fe) MG tablet Generic drug: ferrous sulfate furosemide 40 MG tablet Commonly known as: Lasix Take 1 (one) tablet by mouth every Friday, Friday & Friday gabapentin 100 MG capsule Commonly known as: Neurontin insulin lispro 100 UNIT/ML pen Commonly known as: HumaLOG;ADMelog Inject 0 (zero) Units to 6 (six) Units subcutaneously 3 times daily with meals melatonin 3 MG tablet Take 1 (one) tablet by mouth nightly as needed for Insomnia nystatin 417877 UNIT/GM powder Commonly known as: Mycostatin Apply to affected area 3 times daily ONETOUCH DELICA PLUS 33G EXTRA FINE LANCET USE ONE LANCET TO PRICK FINGER FOUR TIMES DAILY FOR BLOOD GLUCOSE TESTING OneTouch Verio Reflect w/Device Kit Use 1 kit 4 times daily USE METER TO CHECK BLOOD GLUCOSE FOUR TIMES DAILY Reasons: CALL [facility] WHENDELIVERING [id number] OneTouch Verio test strip Generic drug: blood glucose USE ONE STRIP TO TEST BLOOD SUGAR FOUR TIMES DAILY STOP taking these medications apixaban 5 MG tablet Commonly known as: Eliquis potassium chloride ER 20 MEQ tablet Commonly known as: Klor-Con M Where to Get Your Medications Information about where to get these medications is not yet available Ask your nurse or doctor about these medications ?? acetaminophen 500 MG tablet ?? amLODIPine 10 MG tablet ?? bisacodyl 10 MG suppository ?? lisinopril 20 MG tablet ?? polyethylene glycol 3350 17 g packet ?? renal vitamin tablet ?? sennosides 8.6 MG tablet ?? sevelamer carbonate 800 MG ?? vancomycin (VANCOCIN) IV dose per pharmacy Contact information for after-discharge care Dialysis/Infusion [facility] . Service: Dialysis Contact information: [address] [facility] [address] Discharge Instructions INSTRUCTIONS FROM YOUR PROVIDER: You were admitted to the hospital for infection of your right shoulder joint and in your bloodstream due to a bacteria called MRSA. . MRSA bacteremia with L-pectoralis abscess with concern for osteomyelitis. MRI of L shoulder (OSH)showed findings suggestive of subacromial/subdeltoid bursitis/abscess with involvement of muscle and osteomyelitis. HD catheter, PNA, L-pectoralis abscess possible sources. Abscess near L-shoulder aspirated (11 ml pus) on 02/24. Gram stain showed no organisms and culture negative to date. - Continue vanc for 6 weeks from time of purulent collection (EOT 04/07/24), IV vanc 15 mg/kg/day on days of HD after dialysis - Follow smears and cultures of L-shoulder abscess - CBC with diff, CMP, vanc level weekly CHANGES to your medications: There were some changes made to the medications you take. ? You should START taking vancomycin, which is an antibiotic medication used to treat your infection. You should continue taking this medication until 04/07/2024. This medication will be given during hemodialysis. If you have any questions about your medications, you should ask your primary care provider or pharmacist. INSTRUCTIONS and FOLLOW-UP: Specific instructions regarding MRSA are included as attachment. Your care is being transferred to a [facility]iary facility. It has been a pleasure taking care of you. [facility] Department of Internal Medicine Division of [facility] Medicine You may reach us at (dial [address] for the [address] roller operator). Signed: Martine Morrissey MD 03/02/2024 Time spent on discharge: 45 minutes. Time was spent on preparation of discharge records, prescriptions, counseling patient, working withsocial work and nursing. documented in this encounter Discharge Instructions * Discharge Instructions* Martine Morrissey MD - 02/28/2024 8:56 AM CDT INSTRUCTIONS FROM YOUR PROVIDER: You were admitted to the hospital for infection of your right shoulder joint and in your bloodstream due to a bacteria called MRSA. . MRSA bacteremia with L-pectoralis abscess with concern for osteomyelitis. MRI of L shoulder (OSH)showed findings suggestive of subacromial/subdeltoid bursitis/abscess with involvement of muscle and osteomyelitis. HD catheter, PNA, L-pectoralis abscess possible sources. Abscess near L-shoulder aspirated (11 ml pus) on 02/24. Gram stain showed no organisms and culture negative to date. - Continue vanc for 6 weeks from time of purulent collection (EOT 04/07/24), IV vanc 15 mg/kg/day on days of HD after dialysis - Follow smears and cultures of L-shoulder abscess - CBC with diff, CMP, vanc level weekly CHANGES to your medications: There were some changes made to the medications you take. You should START taking vancomycin, which is an antibiotic medication used to treat your infection.You should continue taking this medication until 04/07/2024. This medication will be given during hemodialysis. If you have any questions about your medications, you should ask your primary care provider or pharmacist. INSTRUCTIONS and FOLLOW-UP: Specific instructions regarding MRSA are included as attachment. Your care is being transferred to a penitentiary facility. It has been a pleasure taking care of you. [facility] Department of Internal Medicine Division of Hospital Medicine You may reach us at (dial 0 for the road roller operator). * Discharge Instr - Activity* Ying Rodriguez RN - 03/02/2024 4:42 PM CDT WBAT to Bilateral UE * Discharge Instr - Diet* Ying Rodriguez RN - 03/02/2024 4:42 PM CDT Renal diet Sodium (Amount): 2300 MG SODIUM Phosphorus (MG): 1500MG PHOSPHORUS Potassium (MG): 2000MG POTASSIUM * Discharge Instr - Wound Care* Ying Rodriguez RN - 03/02/2024 4:43 PM CDT To Right Plantar foot ulcer M-W-F: Cleanse with VASHE soak (5 minutes with Vashe impregnated 4 X 4), scrub wound bed. Apply IODOSORB gel 2mm or nickel thickness to entire wound bed. Apply open fluffed gauze to fill in the space. Apply cover dressing. Float right heel/ wear boots documented in this encounter Medications at Time [...] needed for Insomnia 05/09/2023 09/01/2024 nystatin (Mycostatin) 904870 UNIT/GM powder Apply to affected area 3 times daily 12/12/2022 08/09/2024 polyethylene glycol 3350 (Miralax) 17 g packet Take 17 (seventeen) g by mouth once daily 02/28/2024 08/09/2024 senna (Senokot) 8.6 MG tablet Take 1 (one) tablet by mouth once daily 02/28/2024 09/01/2024 vancomycin, VANCOCIN, IV dose per pharmacy (Vancocin) Dose per pharmacy - to be administered with hemodialysis. 02/28/2024 04/07/2024 documented as of this encounter Progress Notes * Mari Nolan RN - 03/02/2024 5:10 PM CDT 03/02/24 1704 Post Hemodialysis Patient Response to Treatment pt tolerated tx well without complications Post Dialysis Patient Status Treatment Completed Ultrafiltration Amount (ml) 1014 Dialyzer Clearance Clear Amount of blood processed (Liters) 64.8 Post Hemodialysis Comment UF goal reached, blood returned VSS. * Ying Rodriguez RN - 03/02/2024 3:42 PM CDT Patient being discharged, to [facility]. * Ying Rodriguez RN - 03/02/2024 1:56 PM CDT Report called to [facility]. No questions * Milagro Delcid, MILLIE/RAFAEL - 03/02/2024 1:55 PM CDT Images from the original note were not included. Clinical Nutrition Assessment Brief Synopsis: Patient is at Nutrition Risk; Specific criteria can be found in assessment below Nutrition Plan: Continue Renal diet +Nathaniel BID for wound healing mixed with juice, soda, or water (7gm arginine, 7gm glutamine, 2.5g collagen protein, 300mg VIT C, 9.5mg zinc) +Nepro Tubbs (425 kcals, 19 g protein, 38 g carbohydrate) Once/daily with breakfast Recommendations to Physician: Encourage adequate PO intake of meals and ONS to optimize wound healing Monitor electrolytes Comments: Pt seen for follow-up. Reports fair appetite consuming 25-100% of meals,pt was eating [employer] chicken during interview. Currently on renal diet, pt states she is tired of eating the same thing everyday. Electrolytes are elevated so unable to liberalize diet at this time. Pt stated she was just diagnosed with sickle cell but is unsure what that entails. Will message nurse about providing further education around diagnosis. Pt currently getting Nepro qd, wanted to try new flavor so will send tubbs. Nathaniel order was d/c last week, will restart to aid in wound healing. Last BM 03/02. Labs reviewed: K 5.5 (H). Phos 7.3 (H), BUN 39 (H), Cr 7.43 (H), Mg 2.4 (WNL). 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 BMI Range: Morbidly Obese Class 3 IBW/lb (Calculated) Female: 135, Recent Weights/Methods 01/09/2023 1004 04/26/2023 0450 05/18/2023 0518 05/19/2023 0400 05/19/2023 1300 05/21/2023 0837 06/10/2023 0845 02/26/2024 1501 Weight: 127 kg (280 lb) 140 kg (308 lb 9.6 oz) 140.1 kg (308 lb 14.4 oz) 139.3 kg (307 lb) 139.3 kg(307 lb 1.6 oz) 139.3 kg (307 lb) 129.7 kg (286 lb) 98.9 kg (218 lb) Weight Method : -- Bedscale -- Bedscale -- -- -- -- Wt Comments: reviewed. Diet order accuracy Current diet order: Renal Standard Current supplement order: Nepro qd, Nathaniel BID Nutritional Supplement at Discharge: N/A Nutrition recommendation: alter/change nutrition order P.O.Intake for the past 48 hrs: % Meal Taken Av.8 % Min: 25 % Max: 100 % Supplement(s) Consumed- Last 48 hours None Food Allergies: No known food allergies GI Concerns: None Chewing/Swallowing: None Pain affecting intake: No Estimated Needs: KCAL: 9723-6150 (30-35 kcal/kg IBW) Protein (g): 77-88g (1.4-1.6 g/kg ABW) Fluid (ml): 1 ml/kcal Needs based on: Kcal/kg- (Comment) (Adj IBW of 55.2kg) Recommended Access Route: PO Laboratory values: Recent Labs Component Name 03/02/24 0338 03/01/24 0310 02/29/24 0127 02/23/24 0737 02/22/24 2214 06/10/23 0939 05/22/23 0521 BUN 39* 28* 16 - 21 8 10 CREATININE 7.43* 5.80* 3.73* - 4.88* 1.96* 1.52* NA 137 135* 135* - 136 143 143 POTASSIUM 5.5* 4.9* 4.4 - 4.1 4.1 3.5 CL 102 106 104 - 100 110* 110* CO2 25 21* 24 - 26 25 26 GLUCOSE 92 112 141* - 261* 79 99 CALCIUM 8.8 8.8 8.3* - 8.8 8.3* 8.0* PROT - - - - 8.1 5.8* 5.3* ALB - - - - 1.5* 1.5* 1.4* TBILI - - - - 0.2 0.2 0.1* ALKPHOS - - - - 221* 139 143 ALT - - - - 11 8 5 AST - - - - 7 12 9 ANIONGAP 10 8 7 - 10 12 11 BCR 5* 5* 4* - 4* 4* 7 OSMOLALITY 293 286 284 - 294 293 295 AGRATIO - - - - 0.2* 0.3* 0.4* EGFR 7* 9* 16* - 12* 35* 47* - = values in this interval not displayed. Medications: Current Facility-Administered Medications Medication ??? 0.9% NaCl injection 3 mL And ??? 0.9% NaCl injection 1-10 mL ??? acetaminophen (Tylenol) tablet 500 mg ??? amLODIPine (Norvasc) tablet 10 mg ??? bisacodyl (Dulcolax) suppository 10 mg ??? carvedilol (Coreg) tablet 12.5 mg ??? dextrose 10 % IV bolus Or ??? dextrose 10 % IV bolus Or ??? glucagon (Glucagen) injection 1 mg ??? gabapentin (Neurontin) capsule 100 mg ??? glucose (Diabetic Use) oral gel ??? heparin injection 2,000 Units ??? heparin injection 4,600 Units ??? heparin injection 5,000 Units ??? hydrOXYzine HCl (Atarax) tablet 25 mg ??? insulin aspart (NovoLOG) pen 0-6 Units ??? lidocaine (Lidoderm) 5 % patch 1 patch ??? lidocaine (Lidoderm) 5 % patch 1 patch ??? lisinopril (Prinivil; Zestril) tablet 20 mg ??? melatonin tablet 3 mg ??? ondansetron (Zofran) injection 4 mg Or ??? prochlorperazine (Compazine) injection 5 mg ??? oxyCODONE (immediate release) (Roxicodone) tablet 5 mg Or ??? oxyCODONE (immediate release) (Roxicodone) tablet 10 mg ??? polyethylene glycol 3350 (Miralax) packet 17 g ??? renal vitamin (Dialyvite) tablet 1 tablet ??? senna (Senokot) tablet 8.6 mg ??? sevelamer carbonate (Renvela) tablet 1,600 mg ??? vancomycin (Vancocin) IV dose per pharmacy Skin/Wound: perineum, immer abdomen, right planter Education needed: None Education Provided: Not indicated Nutrition Care Process (1) Nutrition Diagnostic Statement: Increased nutrient needs related to:: increased demands for wound healing;renal dysfunction as evidenced by:: estimated energy needs ..;estimated protein needs ..;electrolyte and/or mineral abnormalities;delayed wound healing Nutrition Diagnostic Statement Progress: New diagnostic statement established Nutrition Intervention: Meals and snacks:;Medical Food Supplements: Monitoring: PO intake, BM, labs, meds, weight, wound healing, supplement tolerance Evaluation: Nutrition Goal: Total intake will meet estimated nutrient needs Nutrition Goal Timeframe: Throughout stay Nutrition Goal Progress: New goal established Anuja Tabares, Pearl Peller * Penny Whittington MSW - 03/02/2024 12:22 PM CDT Facility Transfer Note Level of Care: Senior Living/Manufacturing Manager Care Payor Source: Medicaid Facility Name: (include name of person confirming admission): [facility]: Address: [address] [place] [address], [place], phone??[phone]. room # 615 window NH Made Aware of Special Needs (if applicable): Yes, Vanc 750 mg with dialysis- give it at the end of dialysis- updated HaleyJose Enrique frederick- [phone] RN Call Report to: [phone] RN Fax D/C Orders to: [phone] Transportation: [employer] Certificate of Medical Necessity rationale: Gait: Weight Bearing Status: (RLE and LLE WBAT) Distance Ambulated (ft): 0 FEET Date/time of transfer: 03/02/24 Accepting MD: Dr. Juarez Completed and Signed ZQ131C (if applicable): NA Family/Other Notified of Transfer (name/phone): Pt would like to get dc today. SW left msg for mother Silvia Extended Emergency Contact Information Primary Emergency Contact: Silvia Resendiz Mobile Relation: Mother School Lunch Monitor needed? No Secondary Emergency Contact: GAYE BEAL Mobile Relation: Sister School Lunch Monitor needed? No Authorization Skilled Care: Authorization for Transportation: Verified Qualifying Stay(Skilled Only): NOT APPLICABLE Comments: Pt able to return back to facility. Pt LTC resident from [facility] [place] VERONIKA Giron/ASHLEY W[place] remotely assisting. Available in [employer] * Mari Nolan RN - 03/02/2024 12:05 PM CDT REPORT BEFORE DIALYSIS Diagnosis (BOBBY/CRF): CRF Non-Renal Diagnosis:Abscess of left shoulder Isolation:Contact Does patient have signs or symptoms of respiratory infection (fever, cough, shortness of breath): no Allergies:No Known Allergies Code Status:Full Code Orientation Status: x4 On telemetry/Rhythm: no Oxygen: RA Given any medications: See MAR Need for pain medications: See MAR Blood pressure issues: no On any drips: no Is patient diabetic: yes Any labs to draw: no Any other procedures today: no Any concerns about this patient: no Any medications to be given with dialysis: yes, See MAR Due date of next Central Line Dressing change: 03/07/2024 Primary RN educated on Incapacitated Nurse: yes * Trinidad Holloway PharmD - 03/02/2024 8:48 AM CDT ACTIVE CONSULTS TO PHARMACY/DISEASE STATE MONITORING Pharmacy Consult: Vancomycin ASSESSMENT/PLAN Indication: documented Bacteremia with Goal Level: 15-20 mcg/ml and Osteomyelitis of heel with GoalLevel: 15-20 mcg/ml ID consulted/following: Yes Assessment: ?? Day of treatment: 16 ?? End of treatment date: 04/07/24 ?? Current dosing regimen: Intermittent dosing based on levels Recent Labs Component Name 03/02/24 0338 03/01/24 0310 02/29/24 0127 02/28/24 0253 05/22/23 0521 05/21/23 0450 05/20/23 0918 05/17/23 2151 05/09/23 0357 05/08/23 0841 04/29/23 0338 04/28/23 0319 04/27/232018 CREATININE 7.43* 5.80* 3.73* 4.59* - 1.62* - - 1.83* - - 1.39* - BUN 39* 28* 16 26 - 13 - - 17 - - 13 - VANCORNDM 29.0 - 14.9 24.6 - - - - - - - - - VANCTROUGH - - - - - 15.5 - - 19.5 - - 34.6* - VANCOPEAK - - - - - - 20.1* - - 26.1 - - 46.6* - = values in this interval not displayed. ?? Microbiology: Recent Labs Component Name 02/22/24 3219 MRSADPCR Detected* ?? Blood 02/22/24: NG ?? Intra-op cultures - synovial fluid 02/22/24: No organisms ?? Urine 02/24/24): 50,000-100,000 CFU/mL Enterococcus faecium - pt asymptomatic will not treat at this time ?? Abscess 02/25/24: NG ?? Renal: ?? Considered unstable at this time as patient is on intermittent hemodialysis (iHD) with last session 02/27 and next planned 03/02. ?? Level(s): ?? See chart above ? Patient is on iHD with expected clearance of 20-30% per iHD session, the level reported above is expected to be within the supratherapeutic range Plan ? Dosing: o Will hold/stop current scheduled regimen until next level check. No dose is needed today. o If patient needs a scheduled regimen for discharge, could consider scheduling 750 mg IV TuThSa after dialysis. ? Monitoring o Will order a vancomycin random level prior to iHD session on 03/04/24 at 0400 and adjust regimen ifindicated. If discharged, recommend weekly level (can be drawn prior to HD). o Continue to monitor patient???s renal function and cultures as needed. Trinidad Holloway, PharmD 03/02/2024 8:48 AM [facility] Vancomycin Guideline SUBJECTIVE/OBJECTIVE Gay Canales is a 33 year old female. Height: 5' 7 (170.2 cm) Wt 98.9 kg (218 lb) Body mass index is 34.14 kg/m??. Vancomycin Administrations from JAN (last 72 hours) Date/Time Action Medication Dose Rate 02/29/24 1215 $ New Bag/Syringe vancomycin (Vancocin) 1,000 mg in 0.9% NaCl IV 250 mL IVPB 1,000 mg 250 mL/hr * Briana Cano RN - 03/02/2024 3:06 AM CDT Problem: Pain/Discomfort Goal: Patient exhibits [...] is maintained or improved Outcome: Progressing Problem: Nutrient: Increased nutrient needs (specify) Goal: Total intake will meet estimated nutrient needs Outcome: Progressing Problem: Hemodynamic Status/Cardiac Output Goal: Patient has stable vital signs and fluid balance Outcome: Progressing Problem: Fluid and Electrolyte Imbalance Goal: Fluid and electrolyte balance are achieved/maintained Outcome: Progressing Problem: Infection Goal: Signs and symptoms of infections are decreased or avoided Outcome: Progressing Problem: ROM/Therapeutic Exercise Goal: STG - Pt will participate in UE therapeutic exercise to increase activity tolerance Outcome: Progressing * Nadia Gomez DO - 03/01/2024 6:48 PM CDT [facility] Department of Nephrology Progress Note Date of Admission: 02/22/2024 Length of Stay: 8 Date of Service: 03/01/24 Patient Name: Gay Canales (33 year old female) Room Number: 6612/1 PCP: CHERISE MARCELO PA-C ([phone]) No chief complaint on file. HISTORY: History was obtained from the patient and the medical chart. 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 Patient initially presented to OSH for dyspnea andher course was complicated by MSRA bacteremia, osteomyelitis/abscess in the left pectoralis muscle with other soft tissue abscess, pneumonia, and right shoulder septic arthritis. Patient is currentlyon cefepime and vancomycin. Orthopedic following and currently recommending medical management of her right shoulder abscess. For her left, they recommend IR guided drainage with MSK IR. ?? For her renal care, she has been on dialysis for the past 4 months. She was previously admitted to the hospital in 04/2023 where she was found to have BOBBY on CKD which was the possible inciting factorthat caused her to progress to ESRD. She continues to make urine and states she gets dialysis about3 hours. She is TTS, with her last session 02/21/2024. Interval History: No acute events overnight. Patient at bedside. She has no acute complaints. States her shoulders feel better. Wonders if she can get to her retina appointment. Scheduled Medications: ??? 0.9% NaCl 3 mL Intracatheter q8h ??? acetaminophen 500 mg Oral q4h ??? amLODIPine 10 mg Oral QDAY ??? carvedilol 12.5 mg Oral BID WC ??? gabapentin 100 mg Oral TID ??? heparin 5,000 Units Subcutaneous q8h ??? insulin aspart 0-6 Units Subcutaneous TID WC ??? lidocaine 1 patch Transdermal q24h ??? lidocaine 1 patch Transdermal q24h ??? lisinopril 20 mg Oral QDAY ??? polyethylene glycol 3350 17 g Oral QDAY ??? renal vitamin 1 tablet Oral QDAY ??? senna 8.6 mg Oral QDAY ??? sevelamer carbonate 800 mg Oral TID WC ??? vancomycin (VANCOCIN) IV dose per pharmacy Does not apply DIRECTED PRN Medications: ??? SALINE LOCK, INSERT AND MAINTAIN AND 0.9% NaCl AND 0.9% NaCl ??? bisacodyl ??? dextrose IV for hypoglycemia OR dextrose IV for hypoglycemia OR glucagon ??? glucose (Diabetic Use) gel ??? heparin ??? hydrOXYzine HCl ??? melatonin ??? oxyCODONE (immediate release) OR oxyCODONE (immediate release) Infusions: OBJECTIVE: Vital Signs: Temp: [97.9 ??F (36.6 ??C)-98.8 ??F (37.1 ??C)] 97.9 ??F (36.6 ??C) Pulse: [77-82] 77 Resp: [16-18] 18 BP: (125-140)/(72-78) 125/77 Intake/Output: Intake/Output Summary (Last 24 hours) at 03/01/2024 1848 Last data filed at 03/01/2024 1536 Gross per 24 hour Intake 900 ml Output -- Net 900 ml Physical Exam Constitutional: General: She is not in acute distress. HENT: Head: Normocephalic and atraumatic. Eyes: General: No scleral icterus. Comments: Erythematous sclera - Lt Cardiovascular: Rate and Rhythm: Normal rate. Pulmonary: Effort: Pulmonary effort is normal. No respiratory distress. Abdominal: General: There is no distension. Tenderness: There is no abdominal tenderness. Musculoskeletal: Right lower leg: No edema. Comments: L AKA Neurological: General: No focal deficit present. Mental Status: She is oriented to person, place, and time. Psychiatric: Mood and Affect: Mood normal. Thought Content: Thought content normal. Access: R-IJ Permcat Labs: CBC: Recent Labs Component Name 03/01/24 03102/29/24 0127 02/28/24 0253 WBC 14.1* 14.0* 15.4* RBC 3.02* 3.09* 3.02* HGB 9.0* 9.0* 8.9* HCT 28.7* 29.5* 29.0* RFP: Recent Labs Component Name 03/01/24 03102/29/24 0127 02/28/24 0253 NA 135* 135* 134* POTASSIUM 4.9* 4.4 4.4 CL 106 104 102 CO2 21* 24 26 BUN 28* 16 26 CREATININE 5.80* 3.73* 4.59* PHOS 6.1* 4.1 5.3* CALCIUM 8.8 8.3* 8.7 ASSESSMENT ?? 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 Nephrology consulted for continued HD management. ?? PLAN ESKD w/ HD TTS - Access: R-IJ Permcath - Electrolytes: K - 4.9 - Acid Base: CO2 - 21 - Volume Status: Euvolemic - strict intake and output - Blood cultures negative since 02/21 - Annual UPPER DOUBLER consent placed in HD unit - Per renal's standpoint, patient is stable to discharge home --- Plan for iHD 03/02 if still admitted Hypertension - BP today is 125/77 - Home regimen: Amlodipine 10 mg, Bumex 1 mg daily, Coreg 12.5 mg twice daily, lisinopril 20 mg daily, - Inpt regimen: Amlodipine 10mg, Coreg 12.5mg, lisinopril 20mg, - continue current inpatient regimen Anemia of chronic disease - Hgb - 9 - Iron studies (02/24): Fe 23, TSat 15%, ferritin 833 - may be secondary to anemia of chronic disease secondary to ESKD - Would not provide iron due to current infection - transfuse pRBCs for Hgb<7 Bone Mineral Disease - Ca - 8.8, Phos 6.1 - Albumin - 1.5 ---Continue sevelamer 800mg TID AC R Shoulder Septic Arthritis L Soft tissue Abscess Staph Bacteremia E. Faecium UTI - Currently on IV vancomycin with EOT 04/07/24 per ID - Would recommend vancomycin after every other HD treatment until her EOT Patient seen and discussed with attending physician, Dr. Stein. Nadia Gomez DO Nephrology Fellow, PGY-4 03/01/2024 6:48 PM Associated attestation - Tao Stein MD - 03/01/2024 10:03 PM CDT NEPHROLOGY ATTENDING ADDENDUM: I have seen and examined the patient, reviewed the presentation and course with Dr. Gomez and agree with his assessment and plan in the accompanying note. Tao Stein MD 03/01/2024 10:03 PM * Kerrie Fraire RN - 03/01/2024 4:10 PM CDT Problem: Pain/Discomfort Goal: Patient exhibits [...] is maintained or improved Outcome: Progressing Problem: Nutrient: Increased nutrient needs (specify) Goal: Total intake will meet estimated nutrient needs Outcome: Progressing Problem: Hemodynamic Status/Cardiac Output Goal: Patient has stable vital signs and fluid balance Outcome: Progressing Problem: Fluid and Electrolyte Imbalance Goal: Fluid and electrolyte balance are achieved/maintained Outcome: Progressing Problem: Infection Goal: Signs and symptoms of infections are decreased or avoided Outcome: Progressing Problem: ROM/Therapeutic Exercise Goal: STG - Pt will participate in UE therapeutic exercise to increase activity tolerance Outcome: Progressing * Penny Whittington MSW - 03/01/2024 12:17 PM CDT .Facility Admission Note Admitted From: [facility]??[phone]. Level of Care: Senior Living/Manufacturing Manager Care Primary Payor at Facility: Medicaid Can patient Return: Yes Facility Contact: Dorinda mack- [phone] Physician Following at Facility: Dr. Juarez Does Patient/Family want them to Return?: Yes Family/Support Name/Contact: Extended Emergency Contact Information Primary Emergency Contact: Silvia Resendiz Mobile Relation: Mother School Lunch Monitor needed? No Secondary Emergency Contact: GAYE BEAL Mobile Relation: Sister School Lunch Monitor needed? No Number of Skilled Days Used (if applicable): NA Prior Level of Functioning: LTC at [facility] Disposition/Anticipated Level of Care at Discharge: Anticipated mode of transport: TBD Special Testing Requirements: Pt dialysis- Facility would like to know pt's vanc schedule before dc. Comments: Pt is a LTC resident from [facility]??[phone]. Pt able to return back to facility and c SW spoke with liaison phone number [phone] Anny. De Leon wants to know pt's IV vanc schedule- Is it Q12 /Q24? VERONIKA Giron/ASHLEY WASHINGTON remotely assisting. Available in [employer] * Khloe Lowery - 03/01/2024 12:06 PM CDT Updated progress notes sent to patient's Outpatient Hemodialysis Dialysis center. Khloe Lowery Kidney Navigator/ [facility] Ascom: [phone] Office: [phone] * Iqra Khan MSW - 03/01/2024 8:39 AM CDT Care Coordination Progress Note Anticipated level of care at discharge: [facility] - Skilled Facility Comment: Return to: [facility]: Anticipated level of care provider: None: Anticipated Discharge Date: 02/27/24: Discharge Plan: PADMINI called [facility] [phone]. PADMINI spoke with Carley who gave me the liaison phone number [phone] Kim. Orientation Level: Oriented X4: Family Support (Name and Phone): Extended Emergency Contact Information Primary Emergency Contact: Silvia Resendiz Mobile Relation: Mother School Lunch Monitor needed? No Secondary Emergency Contact: GAYE BEAL Mobile Relation: Sister School Lunch Monitor needed? No Transportation at Discharge: Ambulance: READMISSION RISK SCORE is 19 at 8:40 AM 03/01/2024.: Name: VERONIKA Soliz * Geronimo Burleson MD - 03/01/2024 7:39 AM CDT Images from the original note were not included. Internal Medicine Progress Note Admission Date: 02/22/2024 Length of Stay: 8 Subjective She relays no major concerns this morning. She reports adequate pain control. She denies dyspnea. No cough. She denies feeling feverish, chills and night sweats. No nausea or vomiting. Objective Temp: [98.6 ??F (37 ??C)-98.9 ??F (37.2 ??C)] 98.8 ??F (37.1 ??C) Pulse: [80-86] 82 Resp: [16] 16 BP: (128-141)/(73-78) 140/78 Weight change: Intake/Output Summary (Last 24 hours) at 03/01/2024 0739 Last data filed at 02/29/20242021 Gross per 24 hour Intake 913 ml Output -- Net 913 ml Physical Exam Constitutional: General: She is not in acute distress. Comments: Awake. Sitting upright in bed. Interactive. Cooperative. Weight classification: Obese (WHO class I). Euvolemic. Cardiovascular: Rate and Rhythm: Normal rate and regular rhythm. Heart sounds: Normal heart sounds. No murmur heard. Pulmonary: Effort: Pulmonary effort is normal. Breath sounds: Normal breath sounds. Abdominal: General: Bowel sounds are normal. Palpations: Abdomen is soft. Tenderness: There is no abdominal tenderness. Skin: General: Skin is warm and dry. Neurological: Mental Status: She is alert. Laboratory Data Recent Labs Component Name 03/01/2430902/29/2412602/28/24 0253 WBC 14.1* 14.0* 15.4* HGB 9.0* 9.0* 8.9* HCT 28.7* 29.5* 29.0* PLTCOUNT 541* 534* 501* MCV 95.0 95.5 96.0 Recent Labs Component Name 03/01/2430902/29/24 0127 02/28/24 0253 NA 135* 135* 134* POTASSIUM 4.9* 4.4 4.4 CL 106 104 102 CO2 21* 24 26 BUN 28* 16 26 CREATININE 5.80* 3.73* 4.59* Recent Labs Component Name 03/01/2430902/29/24 0127 02/28/24 0253 CALCIUM 8.8 8.3* 8.7 PHOS 6.1* 4.1 5.3* Recent Labs Component Name 02/22/24 2214 06/10/23 0939 05/22/23 0521 PROT 8.1 5.8* 5.3* ALB 1.5* 1.5* 1.4* ALKPHOS 221* 139 143 AST 7 12 9 ALT 11 8 5 TBILI 0.2 0.2 0.1* Recent Labs Component Name 02/29/24 0127 02/23/24 0737 05/21/23 0450 VANCORNDM 14.9 - - VANCTROUGH - - 15.5 - = values in this interval not displayed. Microbiology Results (Displays last 21 days for this encounter ONLY) Procedure Component Value - Date/Time CULTURE WOUND+GRAM STAIN [[id number]] Collected: 02/25/24 1024 Lab Status: Final result Specimen: Microbiology from Abscess Updated: 02/27/24 1713 Culture No growth Gram Stain Heavy Polymorphonuclear cells No organisms seen CULTURE AFB+SMEAR [[id number]] (Normal) Collected: 02/25/24 1024 Lab Status: Preliminary result Specimen: Microbiology from Abscess Updated: 02/26/24 1140 Culture Culture in progress AFB Smear No acid-fast bacilli seen CULTURE FUNGUS OTHER+FUNGUS SMEAR [[id number]] (Normal) Collected: 02/25/24 1024 Lab Status: Preliminary result Specimen: Microbiology from Abscess Updated: 02/26/24 1540 Culture Culture in progress Fungus Stain No yeast or hyphae seen CULTURE ANAEROBE [[id number]] (Normal) Collected: 02/25/24 1024 Lab Status: Preliminary result Specimen: Microbiology from Abscess Updated: 02/26/24 0630 Culture Culture in progress CHLAMYDIA + GC AMPLIFIED PROBE [[id number]] (Normal) Collected: 02/24/24 2314 Lab Status: Final result Specimen: Microbiology from Urine Updated: 02/25/24 1924 Chlamydia Amplified Probe Negative GC Amplified Probe Negative Narrative: Results based on detection/no detection of ribosomal RNA by amplified method. CULTURE URINE [[id number]] (Abnormal) (Susceptibility) Collected: 02/24/24 2306 Lab Status: Final result Specimen: Urine Clean Catch Updated: 02/27/24 2322 Culture Urine 50,000-100,000 CFU/mL Enterococcus faecium vancomycin-resistant (VRE) Comment: Susceptibility to follow 50,000-100,000 CFU/mL urogenital nish Susceptibility Enterococcus faecium vancomycin-resistant (VRE) (1) Antibiotic Interpretation Microscan Method Status Ampicillin Resistant >=32 ug/mL CHARLES Final Linezolid Susceptible 2 ug/mL CHARLES Final Nitrofurantoin Intermediate 64 ug/mL CHARLES Final Vancomycin Resistant >=32 ug/mL CHARLES Final MRSA DNA PCR [[id number]] (Abnormal) Collected: 02/22/24 2359 Lab Status: Final result Specimen: Microbiology from Nasal Updated: 02/23/24 0329 MRSA DNA by PCR Detected Narrative: Methicillin-resistant Staphylococcus aureus (MRSA) DNA is detected (presumed colonized with MRSA). CULTURE AFB+SMEAR [[id number]] (Normal) Collected: 02/22/242242 Lab Status: Preliminary result Specimen: Microbiology from Synovial Fluid Updated: 02/23/24 1602 Culture Culture in progress AFB Smear No acid-fast bacilli seen CULTURE ANAEROBE [[id number]] (Normal) Collected: 02/22/242242 Lab Status: Final result Specimen: Microbiology from Synovial Fluid Updated: 02/29/24 1330 Culture No anaerobic organisms isolated CULTURE FLUID+GRAM STAIN [[id number]] (Normal) Collected: 02/22/242242 Lab Status: Final result Specimen: Synovial Fluid Updated: 02/26/24 0553 Culture No growth Gram Stain No organisms seen Heavy Polymorphonuclear cells Moderate Red blood cells CULTURE FUNGUS OTHER+FUNGUS SMEAR [[id number]] (Normal) Collected: 02/22/242242 Lab Status: Preliminary result Specimen: Microbiology from Synovial Fluid Updated: 02/26/24 0711 Culture Culture in progress Fungus Stain No yeast or hyphae seen CULTURE GC [[id number]] (Normal) Collected: 02/22/242242 Lab Status: Final result Specimen: Microbiology from Synovial Fluid Updated: 02/26/24 0836 Culture Negative for Neisseria gonorrhoeae CULTURE BLOOD [[id number]] (Normal) Collected: 02/22/242222 Lab Status: Final result Specimen: Blood Peripheral Updated: 02/28/24 0202 Culture No growth day 5 CULTURE BLOOD [[id number]] (Normal) Collected: 02/22/242213 Lab Status: Final result Specimen: Blood Peripheral Updated: 02/28/24 0202 Culture No growth day [address] GUIDED NEEDLE PLACEMENT Result Date: 02/27/2024 Impression: Ultrasound guided aspiration of left scapula/shoulder collection fluid from the left shoulder collection, as described above. Assessment and Plan Gay Canales is a 33 year old female hospitalized with abscess of L shoulder in setting of MRSA bacteremia. Her active/chronic diseases include ESKD, HTN, and T2DM. She has a history of L AKA. Bacteremia due to MRSA Abscess of left (L) shoulder Blood cultures (obtained 02/15) revealed growth of MRSA. Source of bacteremia likely accounted for by seeding of bacteria from R heel ulcer. Suspicion of infective endocarditis (IE) is low. Past 24 hrs: qSOFA: 0/3; SIRS: 1/4 (leukocytosis). Plan: Follow up on infectious diseases recommendations regarding further management of MRSA bacteremia. Further work-up is not indicated at this time to elucidate possibility of IE. Antibiotic therapy. Course duration: 6 weeks; end date: 04/08/2024. - Continue vancomycin (dosing per pharmacy) IV. Trough goal: 15-20 mg/L. APAP or opioid analgesia as needed. VRE bacteriuria No clinical evidence of UTI. Plan: Further management not indicated at this time. End-stage kidney disease (ESKD) Etiology of ESKD accounted for by long-standing HTN and DM. Long-term CKD complications include anemia of CKD and chronic kidney disease-mineral and bone disorder (CKD-MBD). Outpatient intermittent hemodialysis (IHD) regimen: Ftth-[id number]-Ukl. Plan: Follow up on nephrology recommendations regarding management of ESKD. Intermittent HD per nephrology consultants. PO4 control: Continue sevelamer 800 mg TID PO. Essential (primary) hypertension (HTN) No evidence of new target-organ dysfunction related to HTN. Past 24 hrs: Blood pressure control: adequate. Plan: Serial monitoring of blood pressure. Continue amlodipine 10 mg DAILY PO. Continue lisinopril 20 mg DAILY PO. Continue carvedilol 12.5 mg BID PO. Type 2 diabetes mellitus (T2DM) Long-term glycemic control good based on recent HbA1c: 6.5% (Feb, 2024). DM complications include peripheral neuropathy and diabetic nephropathy. Past 24 hrs: Glycemic control: adequate; no hypoglycemia. TDD: none. Plan: Daily assessment of glycemic control and modification of insulin regimen to maintain serum glucose level 140-180 mg/dL. Obtain capillary blood glucose QID (AC/HS). Insulin regimen. - Basal: None - Mealtime: None - Correction factor: insulin aspart 0-6 units scale TID (AC) SubQ ??? 0.9% NaCl 3 mL Intracatheter q8h ??? acetaminophen 500 mg Oral q4h ??? amLODIPine 10 mg Oral QDAY ??? carvedilol 12.5 mg Oral BID WC ??? gabapentin 100 mg Oral TID ??? heparin 5,000 Units Subcutaneous q8h ??? insulin aspart 0-6 Units Subcutaneous TID WC ??? lidocaine 1 patch Transdermal q24h ??? lidocaine 1 patch Transdermal q24h ??? lisinopril 20 mg Oral QDAY ??? polyethylene glycol 3350 17 g Oral QDAY ??? renal vitamin 1 tablet Oral QDAY ??? senna 8.6 mg Oral QDAY ??? sevelamer carbonate 800 mg Oral TID WC ??? vancomycin (VANCOCIN) IV dose per pharmacy Does not apply DIRECTED ??? SALINE LOCK, INSERT AND MAINTAIN AND 0.9% NaCl AND 0.9% NaCl ??? bisacodyl ??? dextrose IV for hypoglycemia OR dextrose IV for hypoglycemia OR glucagon ??? glucose (Diabetic Use) gel ??? heparin ??? hydrOXYzine HCl ??? melatonin ??? oxyCODONE (immediate release) OR oxyCODONE (immediate release) Prophylaxis VTE risk: high. Pharmacologic thromboprophylaxis is indicated. - Continue heparin 5000 units Q 8 hrs SubQ. Diet DIETARY NUTRITION SUPPLEMENTS DIET RENAL Activity Level: Activity as tolerated Weight bearing: No restrictions (WBAT) Consults IP CONSULT TO WOUND NURSE IP CONSULT TO ORTHOPEDICS IP CONSULT TO GENERAL SURGERY IP CONSULT TO NUTRITIONAL SERV IP CONSULT TO WOUND NURSE IP CONSULT TO NEPHROLOGY IP CONSULT TO INFECTIOUS DISEASES IP CONSULT TO TRACK MAINTAINER IP CONSULT TO INTERVENTIONAL RADIOLOGY IP CONSULT TO WOUND NURSE Disposition Inpatient Care Coordination Nursing staff updated with changes to care plan. Updates to disposition plan discussed with social work and case management. Approximately 36 minutes was spent reviewing medical records including laboratory/imaging data, discussing disposition plan with care coordination team, updating nursing staff regarding changes to care plan and providing updates to/discussing care plan with patient. Greater than 50% of the time was spent performing care coordination. 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, with long-term current use of insulin (HCC) (POA: Yes) Insomnia (POA: Yes) Leukocytosis (POA: Yes) Hypoalbuminemia (POA: Yes) Geronimo Burleson MD Hospitalist Metal Furniture Polisher of Internal Medicine Signed: 03/01/2024 7:39 AM * Lenin Fang RN - 02/29/2024 9:47 PM CDT Problem: Pain/Discomfort Goal: Patient exhibits [...] is maintained or improved Outcome: Progressing Problem: Nutrient: Increased nutrient needs (specify) Goal: Total intake will meet estimated nutrient needs Outcome: Progressing Problem: Hemodynamic Status/Cardiac Output Goal: Patient has stable vital signs and fluid balance Outcome: Progressing Problem: Fluid and Electrolyte Imbalance Goal: Fluid and electrolyte balance are achieved/maintained Outcome: Progressing Problem: Infection Goal: Signs and symptoms of infections are decreased or avoided Outcome: Progressing Problem: ROM/Therapeutic Exercise Goal: STG - Pt will participate in UE therapeutic exercise to increase activity tolerance Outcome: Progressing * Nadia Gomez DO - 02/29/2024 8:38 PM CDT [facility] Department of Nephrology Progress Note Date of Admission: 02/22/2024 Length of Stay: 7 Date of Service: 02/29/24 Patient Name: Gay Canales (33 year old female) Room Number: 6612/1 PCP: CHERISE MARCELO PA-C ([phone]) No chief complaint on file. HISTORY: History was obtained from the patient and the medical chart. 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 Patient initially presented to OSH for dyspnea andher course was complicated by MSRA bacteremia, osteomyelitis/abscess in the left pectoralis muscle with other soft tissue abscess, pneumonia, and right shoulder septic arthritis. Patient is currentlyon cefepime and vancomycin. Orthopedic following and currently recommending medical management of her right shoulder abscess. For her left, they recommend IR guided drainage with MSK IR. ?? For her renal care, she has been on dialysis for the past 4 months. She was previously admitted to the hospital in 04/2023 where she was found to have BOBBY on CKD which was the possible inciting factorthat caused her to progress to ESRD. She continues to make urine and states she gets dialysis about3 hours. She is TTS, with her last session 02/21/2024. Interval History: No acute events overnight. Patient at bedside. She has no acute complaints. States her shoulders feel better. Scheduled Medications: ??? 0.9% NaCl 3 mL Intracatheter q8h ??? acetaminophen 500 mg Oral q4h ??? amLODIPine 10 mg Oral QDAY ??? carvedilol 12.5 mg Oral BID WC ??? gabapentin 100 mg Oral TID ??? heparin 5,000 Units Subcutaneous q8h ??? insulin aspart 0-6 Units Subcutaneous TID WC ??? lidocaine 1 patch Transdermal q24h ??? lidocaine 1 patch Transdermal q24h ??? lisinopril 20 mg Oral QDAY ??? polyethylene glycol 3350 17 g Oral QDAY ??? renal vitamin 1 tablet Oral QDAY ??? senna 8.6 mg Oral QDAY ??? sevelamer carbonate 800 mg Oral TID WC ??? vancomycin (VANCOCIN) IV dose per pharmacy Does not apply DIRECTED PRN Medications: ??? SALINE LOCK, INSERT AND MAINTAIN AND 0.9% NaCl AND 0.9% NaCl ??? bisacodyl ??? dextrose IV for hypoglycemia OR dextrose IV for hypoglycemia OR glucagon ??? glucose (Diabetic Use) gel ??? heparin ??? hydrOXYzine HCl ??? melatonin ??? oxyCODONE (immediate release) OR oxyCODONE (immediate release) Infusions: OBJECTIVE: Vital Signs: Temp: [98.6 ??F (37 ??C)-99.1 ??F (37.3 ??C)] 98.8 ??F (37.1 ??C) Pulse: [80-86] 82 Resp: [16] 16 BP: (128-141)/(73-78) 140/78 Intake/Output: Intake/Output Summary (Last 24 hours) at 02/29/20242037 Last data filed at 02/29/2024 1753 Gross per 24 hour Intake 493 ml Output -- Net 493 ml Physical Exam Constitutional: General: She is not in acute distress. HENT: Head: Normocephalic and atraumatic. Eyes: General: No scleral icterus. Comments: Erythematous sclera - Lt Cardiovascular: Rate and Rhythm: Normal rate. Pulmonary: Effort: Pulmonary effort is normal. No respiratory distress. Abdominal: General: There is no distension. Tenderness: There is no abdominal tenderness. Musculoskeletal: Right lower leg: No edema. Comments: L AKA Neurological: General: No focal deficit present. Mental Status: She is oriented to person, place, and time. Psychiatric: Mood and Affect: Mood normal. Thought Content: Thought content normal. Access: [facility] Labs: CBC: Recent Labs Component Name 02/29/24 0127 02/28/24 0253 02/27/24 0125 WBC 14.0* 15.4* 14.3* RBC 3.09* 3.02* 3.16* HGB 9.0* 8.9* 9.2* HCT 29.5* 29.0* 30.3* RFP: Recent Labs Component Name 02/29/24 0127 02/28/24 0253 02/27/24 0124 NA 135* 134* 136 POTASSIUM 4.4 4.4 4.5 CL 104 102 104 CO2 24 26 25 BUN 16 26 29* CREATININE 3.73* 4.59* 5.07* PHOS 4.1 5.3* 5.7* CALCIUM 8.3* 8.7 8.4 ASSESSMENT ?? 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 Nephrology consulted for continued HD management. ?? PLAN ESKD w/ HD TTS - Access: R-IJ Permcath - Electrolytes: K - 4.4 - Acid Base: CO2 - 24 - Volume Status: Euvolemic - strict intake and output - Blood cultures negative since 02/21 - Annual UPPER DOUBLER consent placed in HD unit --- Plan for iHD 03/02 if still admitted Hypertension - BP today is 135/75 - Home regimen: Amlodipine 10 mg, Bumex 1 mg daily, Coreg 12.5 mg twice daily, lisinopril 20 mg daily, - Inpt regimen: Amlodipine 10mg, Coreg 12.5mg, lisinopril 20mg, - continue current inpatient regimen Anemia of chronic disease - Hgb - 9 - Iron studies (02/24): Fe 23, TSat 15%, ferritin 833 - may be secondary to anemia of chronic disease secondary to ESKD - Would not provide iron due to current infection - transfuse pRBCs for Hgb<7 Bone Mineral Disease - Ca - 8.3, Phos 5 - Albumin - 1.5 ---Continue sevelamer 800mg TID AC R Shoulder Septic Arthritis L Soft tissue Abscess Staph Bacteremia E. Faecium UTI - Currently on IV vancomycin with EOT 04/07/24 per ID Patient seen and discussed with attending physician, Dr. Stein. Nadia Gomez DO Nephrology Fellow, PGY-4 02/29/2024 8:38 PM Associated attestation - Tao Stein MD - 03/01/2024 8:54 AM CDT NEPHROLOGY ATTENDING ADDENDUM: I have seen and examined the patient, reviewed the presentation and course with Dr. Gomez and agree with her assessment and plan in the accompanying note. I saw the patient at about noon on 02/29/2024 Tao Stein MD 03/01/2024 8:54 AM * Leticia Jurado RN - 02/29/2024 10:52 AM CDT Problem: Pain/Discomfort Goal: Patient exhibits [...] is maintained or improved Outcome: Progressing Problem: Nutrient: Increased nutrient needs (specify) Goal: Total intake will meet estimated nutrient needs Outcome: Progressing Problem: Hemodynamic Status/Cardiac Output Goal: Patient has stable vital signs and fluid balance Outcome: Progressing Problem: Fluid and Electrolyte Imbalance Goal: Fluid and electrolyte balance are achieved/maintained Outcome: Progressing Problem: Infection Goal: Signs and symptoms of infections are decreased or avoided Outcome: Progressing Problem: ROM/Therapeutic Exercise Goal: STG - Pt will participate in UE therapeutic exercise to increase activity tolerance Outcome: Progressing * Geronimo Burleson MD - 02/29/2024 8:52 AM CDT Images from the original note were not included. Internal Medicine Progress Note Admission Date: 02/22/2024 Length of Stay: 7 Subjective She reports adequate pain control. She reports bilateral shoulder pain. She denies dyspnea. No cough. She denies feeling feverish, chills and night sweats. No nausea or vomiting. Objective Temp: [98.8 ??F (37.1 ??C)-99.1 ??F (37.3 ??C)] 98.9 ??F (37.2 ??C) Pulse: [79-86] 86 Resp: [16-19] 16 BP: (108-148)/(68-86) 141/78 Weight change: Intake/Output Summary (Last 24 hours) at 02/29/2024 0852 Last data filed at 02/28/20242027 Gross per 24 hour Intake 200 ml Output 500 ml Net -300 ml Physical Exam Constitutional: General: She is not in acute distress. Comments: Awake. Lying supine in bed. Interactive. Cooperative. Weight classification: Obese (WHO class I). Euvolemic. Cardiovascular: Rate and Rhythm: Normal rate and regular rhythm. Heart sounds: Normal heart sounds. No murmur heard. Pulmonary: Effort: Pulmonary effort is normal. Breath sounds: Normal breath sounds. Abdominal: General: Bowel sounds are normal. Palpations: Abdomen is soft. Tenderness: There is no abdominal tenderness. Skin: General: Skin is warm and dry. Neurological: Mental Status: She is alert. Laboratory Data Recent Labs Component Name 02/29/24 0127 02/28/24 0253 02/27/24 0125 WBC 14.0* 15.4* 14.3* HGB 9.0* 8.9* 9.2* HCT 29.5* 29.0* 30.3* PLTCOUNT 534* 501* 502* MCV 95.5 96.0 95.9 Recent Labs Component Name 02/29/24 0127 02/28/24 0253 02/27/24 0124 NA 135* 134* 136 POTASSIUM 4.4 4.4 4.5 CL 104 102 104 CO2 24 26 25 BUN 16 26 29* CREATININE 3.73* 4.59* 5.07* Recent Labs Component Name 02/29/24 0127 02/28/24 0253 02/27/24 0124 CALCIUM 8.3* 8.7 8.4 PHOS 4.1 5.3* 5.7* Recent Labs Component Name 02/22/24 2214 06/10/23 0939 05/22/23 0521 PROT 8.1 5.8* 5.3* ALB 1.5* 1.5* 1.4* ALKPHOS 221* 139 143 AST 7 12 9 ALT 11 8 5 TBILI 0.2 0.2 0.1* Recent Labs Component Name 02/29/24 0127 02/23/24 0737 05/21/23 0450 VANCORNDM 14.9 - - VANCTROUGH - - 15.5 - = values in this interval not displayed. Microbiology Results (Displays last 21 days for this encounter ONLY) Procedure Component Value - Date/Time CULTURE WOUND+GRAM STAIN [[id number]] Collected: 02/25/24 1024 Lab Status: Final result Specimen: Microbiology from Abscess Updated: 02/27/24 1713 Culture No growth Gram Stain Heavy Polymorphonuclear cells No organisms seen CULTURE AFB+SMEAR [[id number]] (Normal) Collected: 02/25/24 1024 Lab Status: Preliminary result Specimen: Microbiology from Abscess Updated: 02/26/24 1140 Culture Culture in progress AFB Smear No acid-fast bacilli seen CULTURE FUNGUS OTHER+FUNGUS SMEAR [[id number]] (Normal) Collected: 02/25/24 1024 Lab Status: Preliminary result Specimen: Microbiology from Abscess Updated: 02/26/24 1540 Culture Culture in progress Fungus Stain No yeast or hyphae seen CULTURE ANAEROBE [[id number]] (Normal) Collected: 02/25/24 1024 Lab Status: Preliminary result Specimen: Microbiology from Abscess Updated: 02/26/24 0630 Culture Culture in progress CHLAMYDIA + GC AMPLIFIED PROBE [[id number]] (Normal) Collected: 02/24/24 2314 Lab Status: Final result Specimen: Microbiology from Urine Updated: 02/25/24 1924 Chlamydia Amplified Probe Negative GC Amplified Probe Negative Narrative: Results based on detection/no detection of ribosomal RNA by amplified method. CULTURE URINE [[id number]] (Abnormal) (Susceptibility) Collected: 02/24/24 2306 Lab Status: Final result Specimen: Urine Clean Catch Updated: 02/27/24 2322 Culture Urine 50,000-100,000 CFU/mL Enterococcus faecium vancomycin-resistant (VRE) Comment: Susceptibility to follow 50,000-100,000 CFU/mL urogenital nish Susceptibility Enterococcus faecium vancomycin-resistant (VRE) (1) Antibiotic Interpretation Microscan Method Status Ampicillin Resistant >=32 ug/mL CHARLES Final Linezolid Susceptible 2 ug/mL CHARLES Final Nitrofurantoin Intermediate 64 ug/mL CHARLES Final Vancomycin Resistant >=32 ug/mL CHARLES Final MRSA DNA PCR [[id number]] (Abnormal) Collected: 02/22/24 2359 Lab Status: Final result Specimen: Microbiology from Nasal Updated: 02/23/24 0329 MRSA DNA by PCR Detected Narrative: Methicillin-resistant Staphylococcus aureus (MRSA) DNA is detected (presumed colonized with MRSA). CULTURE AFB+SMEAR [[id number]] (Normal) Collected: 02/22/24 2243 Lab Status: Preliminary result Specimen: Microbiology from Synovial Fluid Updated: 02/23/24 1602 Culture Culture in progress AFB Smear No acid-fast bacilli seen CULTURE ANAEROBE [[id number]] (Normal) Collected: 02/22/242242 Lab Status: Preliminary result Specimen: Microbiology from Synovial Fluid Updated: 02/26/24 1521 Culture No anaerobic organisms isolated to date. CULTURE FLUID+GRAM STAIN [[id number]] (Normal) Collected: 02/22/242242 Lab Status: Final result Specimen: Synovial Fluid Updated: 02/26/24 0553 Culture No growth Gram Stain No organisms seen Heavy Polymorphonuclear cells Moderate Red blood cells CULTURE FUNGUS OTHER+FUNGUS SMEAR [[id number]] (Normal) Collected: 02/22/242242 Lab Status: Preliminary result Specimen: Microbiology from Synovial Fluid Updated: 02/26/24 0711 Culture Culture in progress Fungus Stain No yeast or hyphae seen CULTURE GC [[id number]] (Normal) Collected: 02/22/242242 Lab Status: Final result Specimen: Microbiology from Synovial Fluid Updated: 02/26/24 0836 Culture Negative for Neisseria gonorrhoeae CULTURE BLOOD [[id number]] (Normal) Collected: 02/22/242222 Lab Status: Final result Specimen: Blood Peripheral Updated: 02/28/24 0202 Culture No growth day 5 CULTURE BLOOD [[id number]] (Normal) Collected: 02/22/242213 Lab Status: Final result Specimen: Blood Peripheral Updated: 02/28/24 0202 Culture No growth day [address] GUIDED NEEDLE PLACEMENT Result Date: 02/27/2024 Impression: Ultrasound guided aspiration of left scapula/shoulder collection fluid from the left shoulder collection, as described above. Assessment and Plan Gay Canales is a 33 year old female hospitalized with abscess of L shoulder in setting of MRSA bacteremia. Her active/chronic diseases include ESKD, HTN, and T2DM. She has a history of L AKA. Bacteremia due to MRSA Abscess of left (L) shoulder Blood cultures (obtained 02/15) revealed growth of MRSA. Source of bacteremia likely accounted for by seeding of bacteria from R heel ulcer. Suspicion of infective endocarditis (IE) is low. Past 24 hrs: qSOFA: 0/3; SIRS: 1/4 (leukocytosis). Plan: Follow up on infectious diseases recommendations regarding further management of MRSA bacteremia. Further work-up is not indicated at this time to elucidate possibility of IE. Antibiotic therapy. Course duration: 6 weeks; end date: 04/08/2024. - Continue vancomycin (dosing per pharmacy) IV. Trough goal: 15-20 mg/L. APAP or opioid analgesia as needed. VRE bacteriuria No clinical evidence of UTI. Plan: Further management not indicated at this time. End-stage kidney disease (ESKD) Etiology of ESKD accounted for by long-standing HTN and DM. Long-term CKD complications include anemia of CKD and chronic kidney disease-mineral and bone disorder (CKD-MBD). Outpatient intermittent hemodialysis (IHD) regimen: [id number]. Plan: Follow up on nephrology recommendations regarding management of ESKD. Intermittent HD per nephrology consultants. PO4 control: Continue sevelamer 800 mg TID PO. Essential (primary) hypertension (HTN) No evidence of new target-organ dysfunction related to HTN. Past 24 hrs: Blood pressure control: adequate. Plan: Serial monitoring of blood pressure. Continue amlodipine 10 mg DAILY PO. Continue lisinopril 20 mg DAILY PO. Continue carvedilol 12.5 mg BID PO. Type 2 diabetes mellitus (T2DM) Long-term glycemic control good based on recent HbA1c: 6.5% (Feb, 2024). DM complications include peripheral neuropathy and diabetic nephropathy. Past 24 hrs: Glycemic control: adequate; no hypoglycemia. TDD: 8 units. Plan: Daily assessment of glycemic control and modification of insulin regimen to maintain serum glucose level 140-180 mg/dL. Obtain capillary blood glucose QID (AC/HS). Insulin regimen. - Basal: None - Mealtime: None - Correction factor: insulin aspart 0-6 units scale TID (AC) SubQ ??? 0.9% NaCl 3 mL Intracatheter q8h ??? acetaminophen 500 mg Oral q4h ??? amLODIPine 10 mg Oral QDAY ??? carvedilol 12.5 mg Oral BID WC ??? gabapentin 100 mg Oral TID ??? heparin 5,000 Units Subcutaneous q8h ??? insulin aspart 0-6 Units Subcutaneous TID WC ??? lidocaine 1 patch Transdermal q24h ??? lisinopril 20 mg Oral QDAY ??? polyethylene glycol 3350 17 g Oral QDAY ??? renal vitamin 1 tablet Oral QDAY ??? senna 8.6 mg Oral QDAY ??? sevelamer carbonate 800 mg Oral TID WC ??? vancomycin 1,000 mg Intravenous Once ??? vancomycin (VANCOCIN) IV dose per pharmacy Does not apply DIRECTED ??? SALINE LOCK, INSERT AND MAINTAIN AND 0.9% NaCl AND 0.9% NaCl ??? bisacodyl ??? dextrose IV for hypoglycemia OR dextrose IV for hypoglycemia OR glucagon ??? glucose (Diabetic Use) gel ??? heparin ??? hydrOXYzine HCl ??? melatonin ??? oxyCODONE (immediate release) OR oxyCODONE (immediate release) Prophylaxis VTE risk: high. Pharmacologic thromboprophylaxis is indicated. - Continue heparin 5000 units Q 8 hrs SubQ. Diet DIETARY NUTRITION SUPPLEMENTS DIET RENAL Activity Level: Activity as tolerated Weight bearing: No restrictions (WBAT) Consults IP CONSULT TO WOUND NURSE IP CONSULT TO ORTHOPEDICS IP CONSULT TO GENERAL SURGERY IP CONSULT TO NUTRITIONAL SERV IP CONSULT TO WOUND NURSE IP CONSULT TO NEPHROLOGY IP CONSULT TO INFECTIOUS DISEASES IP CONSULT TO TRACK MAINTAINER IP CONSULT TO INTERVENTIONAL RADIOLOGY IP CONSULT TO WOUND NURSE Disposition Inpatient Care Coordination Nursing staff updated with changes to care plan. 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, with long-term current use of insulin (HCC) (POA: Yes) Insomnia (POA: Yes) Leukocytosis (POA: Yes) Hypoalbuminemia (POA: Yes) Geronimo Burleson MD Hospitalist [employer] of Internal Medicine Signed: 02/29/2024 8:52 AM * Rocio Lanier, PharmD - 02/29/2024 7:55 AM CDT ACTIVE CONSULTS TO PHARMACY/DISEASE STATE MONITORING Pharmacy Consult: Vancomycin ASSESSMENT/PLAN Indication: documented Bacteremia with Goal Level: 15-20 mcg/ml and Osteomyelitis of heel with GoalLevel: 15-20 mcg/ml ID consulted/following: Yes Assessment: Day of treatment: 14 End of treatment date: to be determined (4-6 weeks) Current dosing regimen: 1500 mg,Intermittent dosing based on levels Recent Labs Component Name 02/29/24 0127 02/28/24 0253 02/27/24 0124 02/26/24 0137 05/22/23 0521 05/21/23 0450 05/20/23 0918 05/17/23 2151 05/09/23 0357 05/08/23 0841 04/29/23 0338 04/28/23 0319 04/27/232018 CREATININE 3.73* 4.59* 5.07* 5.64* - 1.62* - - 1.83* - - 1.39* - BUN 16 26 29* 32* - 13 - - 17 - - 13 - VANCORNDM 14.9 24.6 - 14.5 - - - - - - - - - VANCTROUGH - - - - - 15.5 - - 19.5 - - 34.6* - VANCOPEAK - - - - - - 20.1* - - 26.1 - - 46.6* - = values in this interval not displayed. Microbiology: Recent Labs Component Name 02/22/24 2359 MRSADPCR Detected* MRSA positive: Yes-PCR + 02/21 Other pertinent micro: Yes Blood x 2 (02.22.24): NGTD Intra-op cultures - synovial fluid (02.22.24): No organisms Urine (02.24.24): 50,000-100,000 CFU/mL Enterococcus faecium - pt asymptomatic will not treat at this time Abscess (02.25.24): In process Renal: Considered unstable at this time as patient is on intermittent hemodialysis (iHD) with last session02/27 and next planned 03/02. Level(s): See chart above- pt's most recent level was 14.9 post-HD Patient is on iHD with expected clearance of 20-30% per iHD session, the level reported above is expected to be within the subtherapeutic range Plan Dosing: Will continue serial dosing based on scheduled dialysis sessions with next session expected to be on 03/02. Will order dose of 1000 mg to be given on 02/28 at 1100. Given level is already below goal, will give conservative dose today, as next iHD is not planned until Friday and pt would remain subtherapeutic if waiting until after next iHD to give another dose.Will plan another dose for today, then resume pre-HD levels Monitoring Will order a vancomycin random level prior to iHD session on 03/02 at 0400 and adjust regimen if indicated. Continue to monitor patient???s renal function and cultures as needed. Rocio Lanier, PharmTerri 02/29/2024 7:49 AM [facility] Vancomycin Guideline SUBJECTIVE/OBJECTIVE Gay Canales is a 33 year old female. Height: 5' 7 (170.2 cm) Wt 98.9 kg (218 lb) Body mass index is 34.14 kg/m??. Vancomycin Administrations from JAN (last 72 hours) Date/Time Action Medication Dose Rate 02/26/24 1838 $ New Bag/Syringe vancomycin (Vancocin) 1,500 mg in 500 mL NaCl IVPB Premix 1,500 mg 333.33 mL/hr * Lenin Fang RN - 02/28/2024 10:00 PM CDT Problem: Pain/Discomfort Goal: Patient exhibits [...] is maintained or improved Outcome: Progressing Problem: Nutrient: Increased nutrient needs (specify) Goal: Total intake will meet estimated nutrient needs Outcome: Progressing Problem: Hemodynamic Status/Cardiac Output Goal: Patient has stable vital signs and fluid balance Outcome: Progressing Problem: Fluid and Electrolyte Imbalance Goal: Fluid and electrolyte balance are achieved/maintained Outcome: Progressing Problem: Infection Goal: Signs and symptoms of infections are decreased or avoided Outcome: Progressing Problem: ROM/Therapeutic Exercise Goal: STG - Pt will participate in UE therapeutic exercise to increase activity tolerance Outcome: Progressing * Lupe Izquierdo RN - 02/28/2024 5:14 PM CDT Hemodialysis Nursing Documentation 1. Duration of treatment: 180 minutes 2. Access type: CVC RIJ 3. Total ultrafiltration volume: 500 ml 4. Medications given during the treatment: Heparin bolus 2000 units, heparin 1000units/hr 5. Comments and observations: Pt tolerated tx well, no complications. * Rocio Lanier PharmD - 02/28/2024 12:53 PM CDT DISCHARGE HEART FAILURE CARE PATHWAY HFpEF (LVEF 50% or greater) GDMT Target Doses ARB / ACEI: Prescribed at discharge and at target dose. ARNI not prescribed on discharge due to notas strongly indicated in patients without HFrEF BB: Prescribed at discharge and not at target dose: Unable to tolerate/uptitrate due to heart rate and blood pressure MRA: Not prescribed on discharge due to renal function and not as strongly indicated in patients without HFrEF SGLT2i: Not prescribed on discharge due to renal function Comments: - For HFmrEF or HFpEF medication guidance see Sections 7.6 and 7.7 within 2021 AHA/ACC/HFSA Guidelines Rocio Lanier PharmD * Georgia Fierro RN - 02/28/2024 11:37 AM CDT Problem: Pain/Discomfort Goal: Patient exhibits [...] is maintained or improved Outcome: Progressing Problem: Nutrient: Increased nutrient needs (specify) Goal: Total intake will meet estimated nutrient needs Outcome: Progressing Problem: Hemodynamic Status/Cardiac Output Goal: Patient has stable vital signs and fluid balance Outcome: Progressing Problem: Fluid and Electrolyte Imbalance Goal: Fluid and electrolyte balance are achieved/maintained Outcome: Progressing Problem: Infection Goal: Signs and symptoms of infections are decreased or avoided Outcome: Progressing Problem: ROM/Therapeutic Exercise Goal: STG - Pt will participate in UE therapeutic exercise to increase activity tolerance Outcome: Progressing * Woo Lackey MD - 02/28/2024 8:27 AM CDT Plan of Care UA showed 6-10 WBC and urine culture grew VRE but patient has been asymptomatic. - No need for UTI treatment. Woo Lackey MD * Geronimo Burleson MD - 02/28/2024 7:38 AM CDT Images from the original note were not included. Internal Medicine Progress Note Admission Date: 02/22/2024 Length of Stay: 6 Subjective She reports adequate pain control. She denies dyspnea. No cough. She denies feeling feverish, chills and night sweats. No nausea or vomiting. Objective Temp: [98.1 ??F (36.7 ??C)-99.9 ??F (37.7 ??C)] 98.8 ??F (37.1 ??C) Pulse: [75-88] 88 Resp: [16-18] 18 BP: (106-149)/(67-86) 149/83 Weight change: Intake/Output Summary (Last 24 hours) at 02/28/2024 0738 Last data filed at 02/27/20242027 Gross per 24 hour Intake 322 ml Output 1000 ml Net -678 ml Physical Exam Constitutional: General: She is not in acute distress. Comments: Awake. Interactive. Cooperative. Weight classification: Obese (WHO class I). Euvolemic. Cardiovascular: Rate and Rhythm: Normal rate and regular rhythm. Heart sounds: Normal heart sounds. No murmur heard. Pulmonary: Effort: Pulmonary effort is normal. Breath sounds: Normal breath sounds. Abdominal: General: Bowel sounds are normal. Palpations: Abdomen is soft. Tenderness: There is no abdominal tenderness. Skin: General: Skin is warm and dry. Neurological: Mental Status: She is alert. Laboratory Data Recent Labs Component Name 02/28/2425202/27/245 02/26/24 0137 WBC 15.4* 14.3* 13.9* HGB 8.9* 9.2* 9.2* HCT 29.0* 30.3* 30.4* PLTCOUNT 501* 502* 533* MCV 96.0 95.9 96.8 Recent Labs Component Name 02/22/24221304/26/23 0629 PT 14.6 16.3* INR 1.2 1.3 PTT - 29.8 Recent Labs Component Name 02/28/2425202/27/24 0124 02/26/24 0137 NA 134* 136 139 POTASSIUM 4.4 4.5 4.6* CL 102 104 102 CO2 26 25 26 BUN 26 29* 32* CREATININE 4.59* 5.07* 5.64* Recent Labs Component Name 02/28/2425202/27/24 0124 02/26/24 0137 CALCIUM 8.7 8.4 8.7 PHOS 5.3* 5.7* 7.4* Recent Labs Component Name 02/22/24221306/10/23 0939 05/22/23 0521 PROT 8.1 5.8* 5.3* ALB 1.5* 1.5* 1.4* ALKPHOS 221* 139 143 AST 7 12 9 ALT 11 8 5 TBILI 0.2 0.2 0.1* Recent Labs Component Name 04/27/23 0729 12/02/221954 CKTOTAL 1,624* - TROPONINI - 0.023 Recent Labs Component Name 02/28/2425202/23/24 0737 05/21/23 0450 VANCORNDM 24.6 - - VANCTROUGH - - 15.5 - = values in this interval not displayed. Microbiology Results (Displays last 21 days for this encounter ONLY) Procedure Component Value - Date/Time CULTURE WOUND+GRAM STAIN [[id number]] Collected: 02/25/24 1024 Lab Status: Final result Specimen: Microbiology from Abscess Updated: 02/27/24 1713 Culture No growth Gram Stain Heavy Polymorphonuclear cells No organisms seen CULTURE AFB+SMEAR [[id number]] (Normal) Collected: 02/25/24 1024 Lab Status: Preliminary result Specimen: Microbiology from Abscess Updated: 02/26/24 1140 Culture Culture in progress AFB Smear No acid-fast bacilli seen CULTURE FUNGUS OTHER+FUNGUS SMEAR [[id number]] (Normal) Collected: 02/25/24 1024 Lab Status: Preliminary result Specimen: Microbiology from Abscess Updated: 02/26/24 1540 Culture Culture in progress Fungus Stain No yeast or hyphae seen CULTURE ANAEROBE [[id number]] (Normal) Collected: 02/25/24 1024 Lab Status: Preliminary result Specimen: Microbiology from Abscess Updated: 02/26/24 0630 Culture Culture in progress CHLAMYDIA + GC AMPLIFIED PROBE [[id number]] (Normal) Collected: 02/24/24 2314 Lab Status: Final result Specimen: Microbiology from Urine Updated: 02/25/24 1924 Chlamydia Amplified Probe Negative GC Amplified Probe Negative Narrative: Results based on detection/no detection of ribosomal RNA by amplified method. CULTURE URINE [[id number]] (Abnormal) (Susceptibility) Collected: 02/24/24 2306 Lab Status: Final result Specimen: Urine Clean Catch Updated: 02/27/24 2322 Culture Urine 50,000-100,000 CFU/mL Enterococcus faecium vancomycin-resistant (VRE) Comment: Susceptibility to follow 50,000-100,000 CFU/mL urogenital nish Susceptibility Enterococcus faecium vancomycin-resistant (VRE) (1) Antibiotic Interpretation Microscan Method Status Ampicillin Resistant >=32 ug/mL CHARLES Final Linezolid Susceptible 2 ug/mL CHARLES Final Nitrofurantoin Intermediate 64 ug/mL CHARLES Final Vancomycin Resistant >=32 ug/mL CHARLES Final MRSA DNA PCR [[id number]] (Abnormal) Collected: 02/22/24 2359 Lab Status: Final result Specimen: Microbiology from Nasal Updated: 02/23/24 0329 MRSA DNA by PCR Detected Narrative: Methicillin-resistant Staphylococcus aureus (MRSA) DNA is detected (presumed colonized with MRSA). CULTURE AFB+SMEAR [[id number]] (Normal) Collected: 02/22/242242 Lab Status: Preliminary result Specimen: Microbiology from Synovial Fluid Updated: 02/23/24 1602 Culture Culture in progress AFB Smear No acid-fast bacilli seen CULTURE ANAEROBE [[id number]] (Normal) Collected: 02/22/242242 Lab Status: Preliminary result Specimen: Microbiology from Synovial Fluid Updated: 02/26/24 1521 Culture No anaerobic organisms isolated to date. CULTURE FLUID+GRAM STAIN [[id number]] (Normal) Collected: 02/22/242242 Lab Status: Final result Specimen: Synovial Fluid Updated: 02/26/24 0553 Culture No growth Gram Stain No organisms seen Heavy Polymorphonuclear cells Moderate Red blood cells CULTURE FUNGUS OTHER+FUNGUS SMEAR [[id number]] (Normal) Collected: 02/22/242242 Lab Status: Preliminary result Specimen: Microbiology from Synovial Fluid Updated: 02/26/24 0711 Culture Culture in progress Fungus Stain No yeast or hyphae seen CULTURE GC [[id number]] (Normal) Collected: 02/22/242242 Lab Status: Final result Specimen: Microbiology from Synovial Fluid Updated: 02/26/24 0836 Culture Negative for Neisseria gonorrhoeae CULTURE BLOOD [[id number]] (Normal) Collected: 02/22/242222 Lab Status: Final result Specimen: Blood Peripheral Updated: 02/28/24 0202 Culture No growth day 5 CULTURE BLOOD [[id number]] (Normal) Collected: 02/22/242213 Lab Status: Final result Specimen: Blood Peripheral Updated: 02/28/24 0202 Culture No growth day [address] GUIDED NEEDLE PLACEMENT Result Date: 02/27/2024 Impression: Ultrasound guided aspiration of left scapula/shoulder collection fluid from the left shoulder collection, as described above. I performed/was present throughout the procedure and providedthe moderate sedation service. Please see nursing flow chart for more details. . > Interpreting Provider: Tommie Quintanilla MD on 02/27/2024 8:34 AM IR CENTRAL LINE REPLACE Result Date: 02/25/2024 IMPRESSION: Successful replacement of central line under fluoroscopic guidance. > Interpreting Provider: Husam Palacios MD on 02/25/2024 11:22 AM Assessment and Plan Gay Canales is a 33 year old female hospitalized with abscess of L shoulder in setting of MRSA bacteremia. Her active/chronic diseases include ESKD, HTN, and T2DM. She has a history of L AKA. Bacteremia due to MRSA Abscess of left (L) shoulder Blood cultures (obtained 02/15) revealed growth of MRSA. Source of bacteremia likely accounted for by seeding of bacteria from R heel ulcer. Suspicion of infective endocarditis (IE) is low. Past 24 hrs: qSOFA: 0/3; SIRS: 1/4 (leukocytosis). Plan: Follow up on infectious diseases recommendations regarding further management of MRSA bacteremia. Further work-up is not indicated at this time to elucidate possibility of IE. Antibiotic therapy. Course duration: 6 weeks; end date: 04/08/2024. - Continue vancomycin (dosing per pharmacy) IV. Trough goal: 15-20 mg/L. APAP or opioid analgesia as needed. VRE bacteriuria No clinical evidence of UTI. Plan: Further management not indicated at this time. End-stage kidney disease (ESKD) Etiology of ESKD accounted for by long-standing HTN and DM. Long-term CKD complications include anemia of CKD and chronic kidney disease-mineral and bone disorder (CKD-MBD). Outpatient intermittent hemodialysis (IHD) regimen: Ymtg-Vymik-Wdo. Plan: Follow up on nephrology recommendations regarding management of ESKD. Intermittent HD per nephrology consultants. PO4 control: Continue sevelamer 800 mg TID PO. Essential (primary) hypertension (HTN) No evidence of new target-organ dysfunction related to HTN. Past 24 hrs: Blood pressure control: adequate. Plan: Serial monitoring of blood pressure. Continue amlodipine 10 mg DAILY PO. Continue lisinopril 20 mg DAILY PO. Continue carvedilol 12.5 mg BID PO. Type 2 diabetes mellitus (T2DM) Long-term glycemic control good based on recent HbA1c: 6.5% (Feb, 2024). DM complications include peripheral neuropathy and diabetic nephropathy. Past 24 hrs: Glycemic control: adequate; no hypoglycemia. TDD: none. Plan: Daily assessment of glycemic control and modification of insulin regimen to maintain serum glucose level 140-180 mg/dL. Obtain capillary blood glucose QID (AC/HS). Insulin regimen. - Basal: None - Mealtime: None (dose ?) - Correction factor: insulin aspart 0-6 units scale TID (AC) SubQ ??? 0.9% NaCl 3 mL Intracatheter q8h ??? acetaminophen 500 mg Oral q4h ??? amLODIPine 10 mg Oral QDAY ??? carvedilol 12.5 mg Oral BID WC ??? gabapentin 100 mg Oral TID ??? heparin 2,000 Units Intracatheter Dialysis Once And ??? heparin 1,000 Units Intracatheter every hour ??? heparin 5,000 Units Subcutaneous q8h ??? insulin aspart 0-6 Units Subcutaneous TID WC ??? lidocaine 1 patch Transdermal q24h ??? lisinopril 20 mg Oral QDAY ??? polyethylene glycol 3350 17 g Oral QDAY ??? renal vitamin 1 tablet Oral QDAY ??? senna 8.6 mg Oral QDAY ??? sevelamer carbonate 800 mg Oral TID WC ??? vancomycin (VANCOCIN) IV dose per pharmacy Does not apply DIRECTED ??? SALINE LOCK, INSERT AND MAINTAIN AND 0.9% NaCl AND 0.9% NaCl ??? bisacodyl ??? dextrose IV for hypoglycemia OR dextrose IV for hypoglycemia OR glucagon ??? glucose (Diabetic Use) gel ??? heparin ??? hydrOXYzine HCl ??? melatonin ??? oxyCODONE (immediate release) OR oxyCODONE (immediate release) Prophylaxis VTE risk: high. Pharmacologic thromboprophylaxis is indicated. - Continue heparin 5000 units Q 8 hrs SubQ. Diet DIETARY NUTRITION SUPPLEMENTS DIET RENAL Activity Level: Activity as tolerated Weight bearing: No restrictions (WBAT) Consults IP CONSULT TO WOUND NURSE IP CONSULT TO ORTHOPEDICS IP CONSULT TO GENERAL SURGERY IP CONSULT TO NUTRITIONAL SERV IP CONSULT TO WOUND NURSE IP CONSULT TO NEPHROLOGY IP CONSULT TO INFECTIOUS DISEASES IP CONSULT TO TRACK MAINTAINER IP CONSULT TO INTERVENTIONAL RADIOLOGY IP CONSULT TO WOUND NURSE Disposition Inpatient Care Coordination Nursing staff updated with changes to care plan. Updates to disposition plan discussed with social work. Care plan discussed via electronic messaging with infectious diseases consultants. Approximately 52 minutes was spent reviewing medical records including laboratory/imaging data, discussing care plan with consultants, discussing disposition plan with care coordination team, updating nursing staff regarding changes to care plan and providing updates to/discussing care plan with patient. Greater than 50% of the time was spent performing care coordination. 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, with long-term current use of insulin (HCC) (POA: Yes) Insomnia (POA: Yes) Leukocytosis (POA: Yes) Hypoalbuminemia (POA: Yes) Geronimo Burleson MD Hospitalist [employer]isher of Internal Medicine Signed: 02/28/2024 7:38 AM * Lenin Fang RN - 02/28/2024 12:01 AM CDT Problem: Pain/Discomfort Goal: Patient exhibits [...] is maintained or improved Outcome: Progressing Problem: Nutrient: Increased nutrient needs (specify) Goal: Total intake will meet estimated nutrient needs Outcome: Progressing Problem: Hemodynamic Status/Cardiac Output Goal: Patient has stable vital signs and fluid balance Outcome: Progressing Problem: Fluid and Electrolyte Imbalance Goal: Fluid and electrolyte balance are achieved/maintained Outcome: Progressing Problem: Infection Goal: Signs and symptoms of infections are decreased or avoided Outcome: Progressing Problem: ROM/Therapeutic Exercise Goal: STG - Pt will participate in UE therapeutic exercise to increase activity tolerance Outcome: Progressing * Brittany Isaac MD - 02/27/2024 4:40 PM CDT INTERNAL MEDICINE PLAN OF CARE NOTE Patient seen and examined after transfer to [facility]; doing well without acute issues or concerns. Orders and notes from previous teams reviewed. For additional information, see additional progress note from internal medicine from today. Brittany Isaac MD * Saskia Long, JIMMIE - 02/27/2024 4:30 PM CDT Pt arrived to unit. Two RN skin assessment completed with JIMMIE Downing. No acute issues or concerns.VSS. * Khloe Lowery - 02/27/2024 4:16 PM CDT Spoke with Trisha at [facility] to informed that patient will need IV ABX once she returns to her OP HD clinic. Trisha informed that because it is not dialysis related thaey are not able to provided the ABX for the patient. They can give the ABX if patient is able to bring them in and the HH or ID doctor draw them up. Dr Gomez made aware. Patient will most likely need HH set up to received ABX at OP HD clinic. Trisha did confirmed that if anyone needed to speak with her she could be contactedat [phone]. [facility]hl[facility] Lower[facility]: [phone] Office: [phone] * Susie Enrique OT - 02/27/2024 2:17 PM CDT [facility] Physical Medicine and Rehabilitation Occupational Therapy Initial Evaluation Note Patient: Gay Canales Med Record Number: [id number] Date of : 1990 Age: [age] year old PPE worn by staff: gloves;gown - disposable;mask - procedural Recommendations: Discharge OT Discharge Recommendations: Patient would benefit from multidisciplinary therapy (return to facility with therapy) This recommendation is made due to ongoing OT functional needs: address care for self in the home;address functional deficits In addition to the 1:1 evaluation of the patient, additional eval time was spent completing the chart review prior to the assessment, completing the multidisciplinary plan of care and education plan post evaluation and communicating results of the eval to other treatment team members. Nurse and Physical Therapist (co-evaluation) contacted regarding patient status and/or discharge plan. Physician Orders: Evaluation and Treat Activity Level: as tolerated PRECAUTIONS: Weight Bearing Status: Upper Extremity;Lower Extremity Weight Bearing: WBAT DIAGNOSIS: Patient Active Problem List: Type II or unspecified type diabetes mellitus without mention of complication, not stated as uncontrolled ([facility]) Intentional overdose of drug in tablet form ([facility]) Severe recurrent major 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 psychotic features ([facility]) PTSD (post-traumatic stress disorder) CHF (congestive heart failure) ([facility]) Left foot infection Hypoxia Essential hypertension Swelling of left foot Bacteremia due to Gram-positive bacteria S/P AKA (above knee amputation) unilateral, left ([facility]) 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 ([facility]) Anemia Acute on chronic congestive heart failure, unspecified heart failure type ([facility]) Swelling of right upper extremity Thrombophlebitis 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 ([facility]) ESRD (end stage renal disease) ([facility]) 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 Essential (primary) hypertension ??? Heart failure ([facility]) ??? Type 2 diabetes mellitus without complications ([facility]) SUBJECTIVE: Subjective: Patient reports she received PT 3x/week. Is working on standing with prosthesis. PATIENT GOALS: Patient's Primary Concern: Patient does not state any goals for therapy. Home Situation: Type of Residence: [facility] Equipment at Home: Wheelchair-Standard Prior Level of Functioning: Mobility: Transfers Only;Wheelchair Bound;With Supervision (Pivots to and from chair) Have Help at Home?: Yes, there is help at home now Who assists you at home?: Staff How often is assistance provided?: 24/ as long as set up with call light Oxygen at Home: ( PRN via [place]) Vision: Significant impairment in the left eye;Significant impairment in the right eye Hearing Exceptions: No impairment Pain Assessment: Pain Location #1 Pain Scale/Observation: Numeric (0-10) Pain Rating Score #1: 3 Pain Location : Shoulder Pain Orientation: Right Pain Intervention(s): Declined Intervention OBJECTIVE: At start of therapy session, patient found in bed and with no alarm General Appearance: supine in NAD, gauze bandage to R foot and L AKA LDA: IV's: Peripheral line and hemodialysis tunned catheter internal jugular Edema: No edema noted Vitals: (*Assess the 3 levels of oxygen saturations both for room air and 02 unless rest on room air is 88% or less). Rest BP: 127/81 HR: 70 Sp02 Sp02 100% RA Ex/Gait/Activity Without 02 BP: HR: Sp02 Room Air Ex/Gait/Activity With 02 BP: HR: Sp02 L O2 Post Activity BP: HR: Sp02 Sp02 L O2 Room Air Observations: Denies dizziness/dyspnea Mental Status/Cognition: Orientation Level: Oriented X4 Cognition: Follows Commands-Consistent Following Commands: Follows all commands and directions without difficulty Safety Judgement: Good awareness of safety precautions UE ROM: RUE: AROM WFL except shoulder flex AAROM 0-30, limited by pain LUE: AROM WFL Strength: RUE: deficits noted shoulder flex/ext 2-/5, biceps/triceps 3+/5, wrist/digit WFL LUE: WNL UE Tone RUE: no abnormal tone noted LUE: no abnormal tone noted Coordination: intact serial opposition for bilateral hands UE Proprioception RUE: WFL LUE: WFL UE Sensation RUE: intact LUE: intact Mobility: A gait belt and non-slip socks were used for all out of bed activity this date. Bed Mobility: Supine to Sit: Complete [place];Supervision with HOB in high fowlers position Sit to Supine: Complete [place];Supervision Transfers: Sit to Stand: Minimal Assistance (min difficulty using R UE to push up from surface 2/2 pain/weakness) Stand to Sit: Minimal Assistance Chair to Bed: Minimal Assistance to Right Bed to Chair: Minimal Assistance to Left Type of Transfer: Stand Pivot Transfer Transfer Device: Gait belt Balance: Balance Scales/Tests Used: Sitting: Static/Dynamic;Standing: Static/Dynamic Sitting - Static: Good Sitting - Dynamic: Good Standing - Static: Fair Standing - Dynamic: Fair Activities of Daily Living Feeding: Set-up Upper Body Dressing: Minimal Assistance (don/doff gown seated EOB) Lower Body Dressing: Maximal Assistance (don sock to R LE) ACTIVITY TOLERANCE: Patient's activity tolerance: fair. AM-PAC 6 Clicks Daily Activity Raw Score:: 19 TREATMENT / EDUCATION / INTERVENTIONS: While performing OT, Patient was instructed in:functional mobility training, self-care training, home exercise program, discharge planning, use of call light Presented to patient who demonstrates Good understanding of instructions given. INFORMED CONSENT TO TREATMENT: Plan of care including recommended therapy, goals and frequency, discussed with patient who understands and agrees to proceed. ASSESSMENT: Functional performance limited due to: limited activities of daily living, pain, decreased functional mobility, decreased functional balance, upper extremity functional impairments and decreased endurance and activity tolerance. Patient continues to benefit from skilled Occupational Therapy to achieve the following functional goals. Equipment Issued: gait belt. Short Term Goals: Goal Formation With patient Patient will perform home exercise program in chair and with stand by assist Patient will perform upper extremity dressing with stand by assist Patient will transfer to bedside commode with stand by assist Snf Goal(s): Patient to discharge to appropriate next level of inpatient care. Plan: Continue OT during acute hospitalization If patient is discharged from the facility, this note serves as a discharge summary if further occupational therapy visits did not occur. Refer to filed flowsheet for further details. Following therapy session, patient left in bed, with call light within reach, with therapy cues visible on white board. * Elie Almanzar PT - 02/27/2024 1:13 PM CDT [facility] Physical Medicine and Rehabilitation Physical Therapy Initial Evaluation Note Patient: Gay Canales Med Record Number: [id number] Date of : 1990 Age: [age] year old PPE worn by staff: gloves;gown - disposable;mask - procedural PPE worn by patient: gown - patient, clean;socks - clean Tech: no Co Eval with OT due to medical complexity and unknown level of assist required. Recommendations: Discharge PT Discharge Recommendations: Patient would benefit from multidisciplinary therapy (Return to facility with therapy) In addition to the 1:1 evaluation of the patient, additional eval time was spent completing the chart review prior to the assessment, completing the multidisciplinary plan of care and education plan post evaluation and communicating results of the eval to other treatment team members. Nurse and Occupational Therapist contacted regarding patient status and/or discharge plan. Physician Orders: Evaluation and Treat PRECAUTIONS: Weight Bearing Status: (RLE and LLE WBAT) Activity Level: Activity as Tolerated DIAGNOSIS: Patient Active Problem List: Type II or unspecified type diabetes mellitus without mention of complication, not stated as uncontrolled ([facility]) Intentional overdose of drug in tablet form ([facility]) Severe recurrent major 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 psychotic features ([facility]) PTSD (post-traumatic stress disorder) CHF (congestive heart failure) ([facility]) Left foot infection Hypoxia Essential hypertension Swelling of left foot Bacteremia due to Gram-positive bacteria S/P AKA (above knee amputation) unilateral, left ([facility]) 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 ([facility]) Anemia Acute on chronic congestive heart failure, unspecified heart failure type ([facility]) Swelling of right upper extremity Thrombophlebitis 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 ([facility]) ESRD (end stage renal disease) ([facility]) 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 Essential (primary) hypertension ??? Heart failure ([facility]) ??? Type 2 diabetes mellitus without complications ([facility]) SUBJECTIVE: Subjective: Agrees to therapy, reports she is getting physical therapy at current facility. PATIENT GOALS: Patient's Primary Concern: Feel better Home Situation: Type of Residence: [facility] Equipment at Home: Wheelchair-Standard;Prosthesis Additional Information (PT): Gets physical therapy with prosthetic at current facility working on progressing mobility. Therapy is three days a week. Facility provides dialysis transportation , Friday Prior Level of Functioning: Prior Level of Function Mobility: Transfers Only;Wheelchair Bound;With Supervision (Pivots to and from chair) Fallen Within 6 Mos: No Have Help at Home?: Yes, there is help at home now Who assists you at home?: Staff How often is assistance provided?: 26/05 as long as set up with call light Oxygen at Home: ( PRN via [place]) Activity at Home: W/C Bound;Sedentary (Progressing with therapy at facility) Vision: Significant impairment in the left eye;Significant impairment in the right eye Hearing Exceptions: No impairment Who manages medications?: staff Pain Assessment: Pain Location #1 Pain Scale/Observation: Numeric (0-10) Pain Rating Score #1: 9 Sedation Level #1: 1-Awake and alert OBJECTIVE: At start of therapy session, patient found in bed and with bed alarm on. General Appearance: NAD LDAs: IV's: Peripheral line and Dialysis Site Edema: no edema noted in bilateral lower extremities Vitals: (*Assess the 3 levels of oxygen saturations both for room air and 02 unless rest on room air is 88% or less). Rest BP: 127/81 (93) HR: 79 Sp02 Sp02 98% Room Air L O2 Observations: VSS Mental Status/Cognition: Level of Consciousness-Adult: Alert Orientation Level: Oriented X4 Cognition: Follows Commands-Consistent ROM: RLE: AROM WFL LLE: AKA Strength: RLE:WFL LLE: AKA, hip WFL Tone: RLE: no abnormal tone noted LLE: no abnormal tone noted Mobility: A gait belt and non-slip socks were used for all out of bed activity this date. Bed Mobility: Supine to Sit: Complete [place];Supervision with HOB in semi-fowlers position Sit to Supine: Complete [place];Supervision Transfers: Sit to Stand: Minimal Assistance Stand to Sit: Minimal Assistance Chair to Bed: Minimal Assistance to Right Bed to Chair: Minimal Assistance to Left Type of Transfer: Stand Pivot Transfer Transfer Device: Gait belt Gait: Weight Bearing Status: (RLE and LLE WBAT) Distance Ambulated (ft): 0 FEET Balance: Balance Scales/Tests Used: Sitting: Static/Dynamic;Standing: Static/Dynamic Sitting - Static: Good Sitting - Dynamic: Good Standing - Static: Fair Standing - Dynamic: Fair ACTIVITY TOLERANCE: Patient's activity tolerance: fair plus TREATMENT/INTERVENTIONS: evaluation, bed mobility training, transfer training, balance activities and monitoring of vitals AM-PAC 6 Clicks Mobility Raw Score:: 16 [...] patient Patient will transfer sit to/from stand with stand by assist Patient will transfer bed to/from chair with stand by assist Patient will ambulate 10 feet with stand by assist Snf Goal(s): Patient to discharge to appropriate next level of inpatient care. Equipment Issued: none Plan: Gait training Transfer training Assistive device training Endurance training Bed mobility training Balance training Energy conservation techniques Safety awareness If patient is discharged from the facility, this note serves as a discharge summary if further physical therapy visits did not occur. Refer to filed flowsheet for further details. Following therapy session, patient left in bed, with call light within reach, with RNAmie aware, with therapy cues visible on white board. * Nadia Gomez DO - 02/27/2024 1:01 PM CDT [facility] Department of Nephrology Progress Note Date of Admission: 02/22/2024 Length of Stay: 5 Date of Service: 02/27/24 Patient Name: Gay Canales (33 year old female) Room Number: 108/01 PCP: CHERISE MARCELO PA-C ([phone]) No chief complaint on file. HISTORY: History was obtained from the patient and the medical chart. 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 Patient initially presented to OSH for dyspnea andher course was complicated by MSRA bacteremia, osteomyelitis/abscess in the left pectoralis muscle with other soft tissue abscess, pneumonia, and right shoulder septic arthritis. Patient is currentlyon cefepime and vancomycin. Orthopedic following and currently recommending medical management of her right shoulder abscess. For her left, they recommend IR guided drainage with MSK IR. ?? For her renal care, she has been on dialysis for the past 4 months. She was previously admitted to the hospital in 04/2023 where she was found to have BOBBY on CKD which was the possible inciting factorthat caused her to progress to ESRD. She continues to make urine and states she gets dialysis about3 hours. She is TTS, with her last session 02/21/2024. Interval History: No acute events overnight. Patient seen on dialysis to complete a 2.5-hour session since her systemclotted yesterday. She is currently tolerating her session Scheduled Medications: ??? 0.9% NaCl 3 mL Intracatheter q8h ??? acetaminophen 500 mg Oral q4h ??? amLODIPine 10 mg Oral QDAY ??? carvedilol 12.5 mg Oral BID WC ??? gabapentin 100 mg Oral TID ??? heparin 5,000 Units Subcutaneous q8h ??? insulin aspart 0-4 Units Subcutaneous AT BEDTIME ??? insulin aspart 0-6 Units Subcutaneous TID WC ??? insulin aspart 4 Units Subcutaneous TID WC ??? lidocaine 1 patch Transdermal q24h ??? lisinopril 20 mg Oral QDAY ??? polyethylene glycol 3350 17 g Oral QDAY ??? renal vitamin 1 tablet Oral QDAY ??? senna 8.6 mg Oral QDAY ??? sevelamer carbonate 800 mg Oral TID WC ??? vancomycin (VANCOCIN) IV dose per pharmacy Does not apply DIRECTED PRN Medications: ??? SALINE LOCK, INSERT AND MAINTAIN AND 0.9% NaCl AND 0.9% NaCl ??? dextrose IV for hypoglycemia OR dextrose IV for hypoglycemia OR glucagon ??? glucose (Diabetic Use) gel ??? heparin ??? melatonin ??? oxyCODONE (immediate release) OR oxyCODONE (immediate release) Infusions: OBJECTIVE: Vital Signs: Temp: [98.1 ??F (36.7 ??C)-99.9 ??F (37.7 ??C)] 99.9 ??F (37.7 ??C) Pulse: [75-89] 79 Resp: [16-18] 16 BP: (106-136)/(67-86) 134/86 Intake/Output: Intake/Output Summary (Last 24 hours) at 02/27/2024 1301 Last data filed at 02/27/2024 1015 Gross per 24 hour Intake -- Output 2505 ml Net -2505 ml Physical Exam Constitutional: General: She is not in acute distress. HENT: Head: Normocephalic and atraumatic. Eyes: General: No scleral icterus. Comments: Erythematous sclera - Lt Cardiovascular: Rate and Rhythm: Normal rate. Pulmonary: Effort: Pulmonary effort is normal. No respiratory distress. Abdominal: General: There is no distension. Tenderness: There is no abdominal tenderness. Musculoskeletal: Right lower leg: No edema. Comments: Erik ATWOOD Neurological: General: No focal deficit present. Mental Status: She is oriented to person, place, and time. Psychiatric: Mood and Affect: Mood normal. Thought Content: Thought content normal. Access: R-IJ Permcath Labs: CBC: Recent Labs Component Name 02/27/24 0125 02/26/24 0137 02/25/24 0110 WBC 14.3* 13.9* 15.9* RBC 3.16* 3.14* 3.15* HGB 9.2* 9.2* 9.3* HCT 30.3* 30.4* 30.3* RFP: Recent Labs Component Name 02/27/24 0124 02/26/24 0137 02/25/24 0110 NA 136 139 135* POTASSIUM 4.5 4.6* 4.2 CL 104 102 101 CO2 25 26 25 BUN 29* 32* 18 CREATININE 5.07* 5.64* 4.15* PHOS 5.7* 7.4* 5.0 CALCIUM 8.4 8.7 8.3* ASSESSMENT ?? 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 Nephrology consulted for continued HD management. ?? PLAN ESKD w/ HD TTS - Access: R-IJ Permcath - Electrolytes: K - 4.6 - Acid Base: CO2 - 26 - Volume Status: Euvolemic - strict intake and output - Blood cultures negative since 02/21 - Annual UPPER DOUBLER consent placed in HD unit --- Plan for iHD today, will provide her standard hemodialysis treatment on 02/27 Hypertension - BP today is 136/86 - Home regimen: Amlodipine 10 mg, Bumex 1 mg daily, Coreg 12.5 mg twice daily, lisinopril 20 mg daily, - Inpt regimen: Amlodipine 10mg, Coreg 12.5mg, lisinopril 20mg, - continue current inpatient regimen Anemia of chronic disease - Hgb - 9.2 - Iron studies (02/24): Fe 23, TSat 15%, ferritin 833 - may be secondary to anemia of chronic disease secondary to ESKD - Would not provide iron due to current infection - transfuse pRBCs for Hgb<7 Bone Mineral Disease - Ca - 8.4, Phos 5.7 - Albumin - 1.5 ---Continue sevelamer 800mg TID AC R Shoulder Septic Arthritis L Soft tissue Abscess Staph Bacteremia E. Faecium UTI - Currently on IV vancomycin with EOT 04/07/24 per ID Patient seen and discussed with attending physician, Dr. Stein. Nadia Gomez DO Nephrology Fellow, PGY-4 02/27/2024 1:01 PM Associated attestation - Tao Stein MD - 02/27/2024 4:19 PM CDT NEPHROLOGY ATTENDING ADDENDUM: I have seen and examined the patient, reviewed the presentation and course with Dr. Gomez and agree with her assessment and plan in the accompanying note. Tao Stein MD 02/27/2024 4:18 PM * Israel Gordon DO - 02/27/2024 10:56 AM CDT [facility] Transfer Checklist: Reasons for Transfer to [facility] Pending final Abx plan, PT/OT eval Pertinent PMH: ESRD, T2DM, HTN, Sickle cell, HFpEF, L AKA 2/2 gangrene Home Meds Being Held: None ABx Indications/End Date: Vanc (04/07/24), pending Ucx susceptabilities Consult Teams Past and Present: ID, Ortho, ACS, IR Pending Workup: Ucx susceptability Things to Watch: Sepsis Disposition Place and Date: Pending final abx plan To Address Prior to DC: If Ucx w/ VRE need ID input on abx regimen and duration Follow Up Appointments: (Already arranged and need to arranged) Reschedule ophtho appt on 03/03 for L eye surgery ID o/p Arrange for abx during HD after final abx plan Heme/onc follow up for new sickle cell diagnosis To Address after DC (F/U etc): NA * Dagmar Petty, RN - 02/27/2024 10:45 AM CDT Hemodialysis Complete Time: 2.5 hours Access: Tunneled HD CVC - RIJ UF: 1,000 ml Blood Processed: 51.4 L Medications: Oxycodone - Heparin bolus given before and during treatment - CVC lumens locked with heparin dwell Tolerated: Well, VSS, no c/o with txmt Problem: Hemodynamic Status/Cardiac Output Goal: Patient has stable vital signs and fluid balance Outcome: Progressing Problem: Fluid and Electrolyte Imbalance Goal: Fluid and electrolyte balance are achieved/maintained Outcome: Progressing Problem: Infection Goal: Signs and symptoms of infections are decreased or avoided Outcome: Progressing * Elie Almanzar, PT - 02/27/2024 10:31 AM CDT [facility] Department of Physical Medicine & Rehabilitation Patient: Gay Canales Med Record Number: [id number] Date of : 1990 Age: [age] year old 02/27/24 1031 Missed Visit Missed Visit Procedure Off Floor Patient off the floor Dialysis Will continue to follow for therapy evaluation when able. * Khloe Lowery - 02/27/2024 9:29 AM CDT Updated progress notes sent to patient's Outpatient Hemodialysis Dialysis center. Khloe Lowery [facility] Ascom: [phone] Office: [phone] * Israel Gordon DO - 02/27/2024 7:08 AM CDT [facility] INTERNAL MEDICINE PROGRESS NOTE Patient: Gay Canales Sex: female Age: [age] year old Date of : 1990 Date of Admission: 02/22/2024 Date: 02/27/2024 LOS: 5 SUBJECTIVE Interval History: -Ucx + for E Faecium. Patient stated she was to have L eye surgery on 03/03 in [facility]. Overall no new complaints. Hospital Course: 33 y/o F w/ PMH of Dialysis (MWF- per pt discuss likely 2/2 poorly controlled T2DM), HTN, Sickle Cell (new diagnosis), HFpEF (70-75% G2DD 05/2023), T2DM (diagnosed age 18), Left 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 Patient initially presented to OSH for SOB and fevers. Found to have PNA and started on meropenem/vancomycin. Bcx from 02/15 were pos for staph aureas and TTE was done w/o evidence of vegetation. ID was consulted and patient transitioned to vanc/cefe. Due to multiple co morbidities patient was transferred to [facility] for orthopedic evaluation. Upon arrival patient HDS. Labs significant for WBC 13, Hgb 9.6. Bcx were drawn. Patient continued on vanc/cefe. Orthopedic surgery consulted and performed R shoulder aspiration showing 4376 PMN w/ 94% neutrophils. ACS consulted for potential L shoulder abscess drainage, recommended ortho involvement. S/p drainage of abscess w/ IR. Ucx pos for E faecium. S/p HD line exchange 02/24. OBJECTIVE Vital Signs: Vitals: 02/26/24 1839 02/26/24200102/27/24 0002 02/27/24 0427 BP: 128/77 122/73 133/78 136/82 Pulse: 85 83 89 83 Resp: 18 18 18 Temp: 98.9 ??F (37.2 ??C) 99.2 ??F (37.3 ??C) 98.9 ??F (37.2 ??C) SpO2: 93% 92% 95% Weight: Height: Temp Min: 97.4 ??F (36.3 ??C) Max: 99.2 ??F (37.3 ??C), Pulse Min: 59 Max: 89, Resp Min: 10 Max: 26, BP Min: 91/61 Max: 158/83 Intake & Output: In: 400 [P.O.:400] Out: 1905 [Urine:600] Physical Exam: Physical Exam Constitutional: General: She is not in acute distress. HENT: Head: Normocephalic and atraumatic. Eyes: Extraocular Movements: Extraocular movements intact. Pupils: Pupils are equal, round, and reactive to light. Comments: L eye conjunctivitis Cardiovascular: Rate and Rhythm: Normal rate and regular rhythm. Pulses: Normal pulses. Heart sounds: No murmur heard. No gallop. Pulmonary: Effort: Pulmonary effort is normal. No respiratory distress. Breath sounds: No wheezing or rales. Abdominal: General: Bowel sounds are normal. There is no distension. Palpations: Abdomen is soft. Tenderness: There is no abdominal tenderness. Musculoskeletal: General: No swelling. Comments: L AKA B/l Shoulder joints w/ TTP Skin: Capillary Refill: Capillary refill takes less than 2 seconds. Coloration: Skin is not jaundiced. Comments: R chest HD line R foot plantar surface chronic healing ulcer Neurological: General: No focal deficit present. Mental Status: She is alert and oriented to person, place, and time. Cranial Nerves: No cranial nerve deficit. Current Medications: Scheduled: ??? 0.9% NaCl 3 mL Intracatheter q8h ??? acetaminophen 500 mg Oral q4h ??? amLODIPine 10 mg Oral QDAY ??? carvedilol 12.5 mg Oral BID WC ??? gabapentin 100 mg Oral TID ??? heparin 1,000 Units Intracatheter Dialysis Once And ??? heparin 500 Units Intracatheter every hour ??? heparin 5,000 Units Subcutaneous q8h ??? insulin aspart 0-4 Units Subcutaneous AT BEDTIME ??? insulin aspart 0-6 Units Subcutaneous TID WC ??? insulin aspart 4 Units Subcutaneous TID WC ??? lidocaine 1 patch Transdermal q24h ??? lisinopril 20 mg Oral QDAY ??? polyethylene glycol 3350 17 g Oral QDAY ??? renal vitamin 1 tablet Oral QDAY ??? senna 8.6 mg Oral QDAY ??? sevelamer carbonate 800 mg Oral TID WC ??? vancomycin (VANCOCIN) IV dose per pharmacy Does not apply DIRECTED Continuous: PRN: ??? SALINE LOCK, INSERT AND MAINTAIN AND 0.9% NaCl AND 0.9% NaCl ??? dextrose IV for hypoglycemia OR dextrose IV for hypoglycemia OR glucagon ??? glucose (Diabetic Use) gel ??? heparin ??? melatonin ??? 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, with long-term current use of insulin (HCC) (POA: Yes) Insomnia (POA: Yes) Leukocytosis (POA: Yes) Pyogenic arthritis of right shoulder region (HCC) (POA: Yes) #R Shoulder Septic Arthritis #L Soft tissue Abscess - Unclear Source - OSH did TTE without vegetations - s/ aspiration of R shoulder joint -PMN 4376, 94% neutrophils -Blood Culture w/ NGTD - ACS consulted for L shoulder abscess, recommending discussion w/ orthopedic surgery -s/p 1 day of IV cefepime - L shoulder abscess culture NGTD, heavy PMN's PLAN - On Vanc IV, MRSA + - orthopedic surgery consulted - Lidocaine patch - Pain control: tylenol 500 q4h, oxy 5/10 PRN -constipation: started miralax daily and senokot daily -F/U PT OT recs #Staph Bacteremia #Leukocytosis #E. Faecium UTI - Bcx pos at OSH 02/15 - Repeat cultures were done 02/17 - CXR mild interstitial markings but not pleural eff or consolidations 02/21 - Originally on johnny/cefe/vanc on 02/15 --> Johnny/vanc. Transitioned to cefe/vanc 02/17 - TTE w/o vegetation at OSH, no need for MATT per ID - Has chest port for HD, exchanged on 02/24 w/ interventional nephro - Bcx NGTD - Ucx pos for E Faecium, if VRE will call ID back for possible adjustment PLAN - ID following - Cont Vanc, (EOT 04/07/24) #Right Heel Ulcer - Wound Care Consult -CRP 8.3, ESR 116 -XR R foot 02/22: Ulceration in the right heel with adjacent soft tissue swelling. Sclerosis in the right calcaneus is nonspecific. Osteomyelitis is not excluded -per ID no need for MRI of R foot, given will already be on abx for R shoulder abscess, and XR findings attributed to healing ulcer -consulted wound care , recs M-W-F: Cleanse with VASHE soak (5 minutes with Vashe impregnated 4 X 4), scrub wound bed. Apply IODOSORB gel 2mm or nickel thickness to entire wound bed. Apply open fluffed gauze to fill in the deadspace. Apply cover dressing. Apply heel offloading boot. Interdry AG to abdominal pannus. Antifungal barrier cream to areas affected by incontinence. ?? #ESRD T/Th/Sat #Bone mineral disease - Nephro consulted for dialysis -Access: Chest port, appears non-infected, no abscess or fluid pockets near line - Per patient, never had kidney biopsy or was told why she was ESRD, if upon review does not have any biopsy or further workups, may be beneficial for outpatient f/u and/or biopsy to assess cause - per pt diagnosed with T2Dm age 18 poorly controlled, unable to cedric metformin, off meds diabetic coma age 20 and required HD briefly at that time, and now restarted HD 4 months ago -last HD 02/23: UF 2L -may need EPO given trans sat 15% borderline on 02/24 -Vit D low 12.3, PTH 93H -Nephro following -perm cath placed 02/24 -cont sevelamer 800mg TID -plan for HD today will monitor phos closely ?? #HTN - Continue home Lisinopril 20mg, Coreg 12.5mg and Amlodipine 10mg -Bp well controlled on current regimen ?? #T2DM -last hgba1c 6.5 (02/23/24) - 4U TID w/ meals + SSI - Cont home Gabapentin 100 TID - Not on basal insulin at home, stated she uses Insulin PRN for BG over 200 ?? #Insonmia - Melatonin 3mg ?? #?Sickle Cell #Anemia of Chronic disease pattern per iron studies - Patient stated she was diagnosed at [place], unclear if it was sickle cell trait vs disease - Iron 23L, Ferritin 833H, TIBC 149L, T sat 15 borderline, B12 667 wnl folate 10.2 wnl - Will likely need further investigation, likely o/p heme/onc referral Code: FULL Diet: Diabetic/renal Electrolytes: Replete PRN PPx: Heparin Access: PIV, HD line Dispo: Pending further eval The above assessment and plan will be discussed with the attending. This note is not final until attested by attending physician. Israel Gordon DO Internal Medicine Resident [facility] 02/27/2024 7:08 AM Associated attestation - Justyn Galvez DO - 02/27/2024 1:43 PM CDT I have verified the documentation of the resident including all history, exam, and medical decision-making details. I have personally performed a physical exam and have personally reviewed the data to support my medical decision-making as outlined in their note. I agree with their assessment and plan other than any corrections/additions as documented below. 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, with long-term current use of insulin (HCC) (POA: Yes) Insomnia (POA: Yes) Leukocytosis (POA: Yes) Pyogenic arthritis of right shoulder region (HCC) (POA: Yes) Corrections/Additions: - None Date of Service: 02/27/2024 Justyn Galvez DO * Dagmar Petty RN - 02/27/2024 6:35 AM CDT REPORT BEFORE DIALYSIS Diagnosis (BOBBY/CRF): ESRD Non-Renal Diagnosis: Shoulder Abscess Isolation: Contact Does patient have signs or symptoms of respiratory infection (fever, cough, shortness of breath): NO Allergies: No Known Allergies Code Status: Full Orientation Status: A&Ox 4 On telemetry/rhythm: nO Oxygen: ra Given any medications: No Need for pain medications: PRN Blood pressure issues: No On any drips: No Is patient diabetic: Yes Any labs to draw: No Any other procedures today: No Any concerns about this patient: No Any medications to be given with dialysis: Heparin Due date of next Central Line Dressing change: 03/03/2024 Primary RN educated on Incapacitated Nurse: Yes Access: Tunneled HD CVC - RIJ * Leila Wang RN - 02/26/2024 5:42 PM CDT Problem: Pain/Discomfort Goal: Patient exhibits [...] is maintained or improved Outcome: Progressing Problem: Nutrient: Increased nutrient needs (specify) Goal: Total intake will meet estimated nutrient needs Outcome: Progressing Problem: Hemodynamic Status/Cardiac Output Goal: Patient has stable vital signs and fluid balance Outcome: Progressing Problem: Fluid and Electrolyte Imbalance Goal: Fluid and electrolyte balance are achieved/maintained Outcome: Progressing Problem: Infection Goal: Signs and symptoms of infections are decreased or avoided Outcome: Progressing * Nadia Gomez DO - 02/26/2024 3:58 PM CDT [facility] Department of Nephrology Progress Note Date of Admission: 02/22/2024 Length of Stay: 4 Date of Service: 02/26/24 Patient Name: Gay Canales (33 year old female) Room Number: 108/01 PCP: CHERISE MARCELO PA-C ([phone]) No chief complaint on file. HISTORY: History was obtained from the patient and the medical chart. 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 Patient initially presented to OSH for dyspnea andher course was complicated by MSRA bacteremia, osteomyelitis/abscess in the left pectoralis muscle with other soft tissue abscess, pneumonia, and right shoulder septic arthritis. Patient is currentlyon cefepime and vancomycin. Orthopedic following and currently recommending medical management of her right shoulder abscess. For her left, they recommend IR guided drainage with MSK IR. ?? For her renal care, she has been on dialysis for the past 4 months. She was previously admitted to the hospital in 04/2023 where she was found to have BOBBY on CKD which was the possible inciting factorthat caused her to progress to ESRD. She continues to make urine and states she gets dialysis about3 hours. She is TTS, with her last session 02/21/2024. Interval History: No acute events overnight. Patient had her Permcath exchanged yesterday. Seen on dialysis, however had to place tPA in the line before it would work. Patient did clot the system two hours into her treatment. Scheduled Medications: ??? 0.9% NaCl 3 mL Intracatheter q8h ??? acetaminophen 500 mg Oral q4h ??? amLODIPine 10 mg Oral QDAY ??? carvedilol 12.5 mg Oral BID WC ??? gabapentin 100 mg Oral TID ??? heparin 5,000 Units Subcutaneous q8h ??? insulin aspart 0-4 Units Subcutaneous AT BEDTIME ??? insulin aspart 0-6 Units Subcutaneous TID WC ??? insulin aspart 4 Units Subcutaneous TID WC ??? lidocaine 1 patch Transdermal q24h ??? lisinopril 20 mg Oral QDAY ??? polyethylene glycol 3350 17 g Oral QDAY ??? renal vitamin 1 tablet Oral QDAY ??? senna 8.6 mg Oral QDAY ??? sevelamer carbonate 800 mg Oral TID WC ??? sterile water (PF) ??? vancomycin 15 mg/kg Intravenous Once ??? vancomycin (VANCOCIN) IV dose per pharmacy Does not apply DIRECTED PRN Medications: ??? SALINE LOCK, INSERT AND MAINTAIN AND 0.9% NaCl AND 0.9% NaCl ??? dextrose IV for hypoglycemia OR dextrose IV for hypoglycemia OR glucagon ??? glucose (Diabetic Use) gel ??? heparin ??? melatonin ??? oxyCODONE (immediate release) OR oxyCODONE (immediate release) ??? sterile water (PF) Infusions: OBJECTIVE: Vital Signs: Temp: [98 ??F (36.7 ??C)-98.9 ??F (37.2 ??C)] 98.9 ??F (37.2 ??C) Pulse: [76-88] 84 Resp: [16-18] 18 BP: (100-139)/(68-93) 133/77 Intake/Output: Intake/Output Summary (Last 24 hours) at 02/26/2024 1558 Last data filed at 02/26/2024 1400 Gross per 24 hour Intake 500 ml Output 1705 ml Net -1205 ml Physical Exam Constitutional: General: She is not in acute distress. HENT: Head: Normocephalic and atraumatic. Eyes: General: No scleral icterus. Comments: Erythematous sclera - Lt Cardiovascular: Rate and Rhythm: Normal rate. Pulmonary: Effort: Pulmonary effort is normal. No respiratory distress. Abdominal: General: There is no distension. Tenderness: There is no abdominal tenderness. Musculoskeletal: Right lower leg: No edema. Comments: L AKA Neurological: General: No focal deficit present. Mental Status: She is oriented to person, place, and time. Psychiatric: Mood and Affect: Mood normal. Thought Content: Thought content normal. Access: [facility] Labs: CBC: Recent Labs Component Name 02/26/24 0137 02/25/24 0110 02/24/24 0130 WBC 13.9* 15.9* 15.5* RBC 3.14* 3.15* 3.19* HGB 9.2* 9.3* 9.4* HCT 30.4* 30.3* 30.6* RFP: Recent Labs Component Name 02/26/24 0137 02/25/24 0110 02/24/24 0130 NA 139 135* 135* POTASSIUM 4.6* 4.2 4.1 CL 102 101 100 CO2 26 25 24 BUN 32* 18 28* CREATININE 5.64* 4.15* 5.93* PHOS 7.4* 5.0 6.3* CALCIUM 8.7 8.3* 8.5 ASSESSMENT ?? 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 Nephrology consulted for continued HD management. ?? PLAN ESKD w/ HD TTS - Access: R-IJ Permcath - Electrolytes: K - 4.6 - Acid Base: CO2 - 26 - Volume Status: Euvolemic - strict intake and output - Blood cultures negative since 02/21 - Annual UPPER DOUBLER consent placed in HD unit --- Plan for iHD today, will provide another short, 2.5hr treatment with heparin 02/26 Hypertension - BP today is 133/77 - Home regimen: Amlodipine 10 mg, Bumex 1 mg daily, Coreg 12.5 mg twice daily, lisinopril 20 mg daily, - Inpt regimen: Amlodipine 10mg, Coreg 12.5mg, lisinopril 20mg, - continue current inpatient regimen Anemia - Hgb - 9.2 - may be secondary to anemia of chronic disease secondary to ESKD - transfuse pRBCs for Hgb<7 Bone Mineral Disease - Ca - 8.7, Phos 7.4 - Albumin - 1.5 ---Continue sevelamer 800mg TID AC Patient seen and discussed with attending physician, Dr. Stein. Nadia Gomez DO Nephrology Fellow, PGY-4 02/26/2024 3:58 PM * Milagro Kirk, PharmD - 02/26/2024 3:13 PM CDT ACTIVE CONSULTS TO PHARMACY/DISEASE STATE MONITORING Pharmacy Consult: Vancomycin ASSESSMENT/PLAN Indication/goal: documented Bacteremia and osteomyelitis of heel with Goal Level: 15-20 mcg/ml MRSA bacteremia with L-pectoralis abscess with concern for osteomyelitis ID consult: Yes Continue vancomycin for MRSA coverage Alerted Gold team of urine culture positive for E. Faecium who will discuss with treatment plan with ID Assessment: Day of treatment: 11 (started 02/15 at OSH) End of treatment date: EOT to be determined, though will likely need at least 4- 6wks of antibioticsdue to concurrent osteomyelitis of L acromion/humeral head per ID Current dosing regimen: Intermittent dosing based on pre-dialysis levels Recent Labs Component Name 02/26/24 0137 02/25/24 0110 02/24/24 0130 02/23/24 0737 05/22/23 0521 05/21/23 0450 05/20/23 0918 05/19/23 0638 05/18/23 0617 05/17/23 2151 05/09/23 0357 05/08/23 0841 04/29/23 0338 04/28/23 0319 04/27/232018 CREATININE 5.64* 4.15* 5.93* 5.35* - 1.62* - - 1.71* - 1.83* - - 1.39* - BUN 32* 18 28* 22 - 13 - - 16 - 17 - - 13 - VANCORNDM 14.5 - - 21.5 - - - - 11.0 - - - - - - VANCTROUGH - - - - - 15.5 - - - - 19.5 - - 34.6* - VANCOPEAK - - - - - - 20.1* - - - - 26.1 - - 46.6* - = values in this interval not displayed. Microbiology: Recent Labs Component Name 02/22/24 2359 MRSADPCR Detected* Pertinent Micro: Blood x 2 (02.22.24): NGTD Intra-op cultures - synovial fluid (02.22.24): In process Urine (02.24.24): 50,000-100,000 CFU/mL Enterococcus faecium Abscess (02.25.24): In process Renal: Considered stable at this time as patient is on intermittent hemodialysis (iHD) with last session 02.26.24 and next planned 02.28.24. Level(s): See chart above Patient is on iHD with expected clearance of 20-30% per iHD session, the level reported above is expected to be within the subtherapeutic range Plan Dosin mg x 1 dose scheduled for 02.26.24 @ 1800 Regimen may be adjusted pending ID recs Monitoring Will order a vancomycin random level prior to iHD session on 02.28.24 at 0400 and adjust regimen if indicated. Continue to monitor patient???s renal function and cultures as needed. Milagro Kirk, PharmD 02/26/2024 3:07 PM [facility] Vancomycin Guideline SUBJECTIVE/OBJECTIVE Gay Canales is a 33 year old female. Height: 5' 7 (170.2 cm) Wt 98.9 kg (218 lb) Body mass index is 34.14 kg/m??. Vancomycin Administrations from JAN (last 72 hours) Date/Time Action Medication Dose Rate 02/24/241927 $ New Bag/Syringe vancomycin (Vancocin) 1,000 mg in 0.9% NaCl IV 250 mL IVPB 1,000 mg 250 mL/hr * Lb Bose RN - 02/26/2024 2:58 PM CDT Pt was schedule for a 3.5 hrs HD treatment. However, within 20 minutes of start of HD treatment high venous pressures noted. Inspectors And Regulatory Officers at bedside and ordered Alteplase with 1 hour dwell time. Restarted HD after Alteplase dwell and was able to only complete 2 hours of treatment due to clotting dialyzer. Inspectors And Regulatory Officers noted. Remove 900 ml. * Lb Bose RN - 02/26/2024 2:48 PM CDT Problem: Hemodynamic Status/Cardiac Output Goal: Patient has stable vital signs and fluid balance Outcome: Progressing Problem: Fluid and Electrolyte Imbalance Goal: Fluid and electrolyte balance are achieved/maintained Outcome: Progressing Problem: Infection Goal: Signs and symptoms of infections are decreased or avoided Outcome: Progressing * Princess Shah RN - 02/26/2024 1:34 PM CDT Care Coordination Progress Note Anticipated level of care at discharge: [facility] - Skilled Facility Comment: Return to: [facility]: Anticipated level of care provider: None: Anticipated Discharge Date: 02/27/24: Discharge Plan: Patient being followed by SW for placement, please see notes for further details. Patient plans to return to previous facility at discharge: [facility]. SW following. Orientation Level: Oriented X4;Oriented to Person;Oriented to Place;Oriented to Situation;Oriented to Time: Family Support (Name and Phone): Extended Emergency Contact Information Primary Emergency Contact: Silvia Resendiz Mobile Relation: Mother School Lunch Monitor needed? No Secondary Emergency Contact: GAYE BEAL Mobile Relation: Sister School Lunch Monitor needed? No Transportation at Discharge: Ambulance: READMISSION RISK SCORE is 20 at 1:35 PM 02/26/2024.: Name: Princess Shah RN [id number] * Susie Enrique OT - 02/26/2024 1:21 PM CDT [facility] Department of Physical Medicine & Rehabilitation Progress Note Patient: Gay Canales Med Record Number: [id number] Date of : 1990 Age: [age] year old 02/26/24 1321 Missed Visit Missed Visit Procedure Off Floor PM- patient off the floor in dialysis. Will follow up for OT evaluation as schedule permits. * Artemio Sanon RN - 02/26/2024 12:07 PM CDT Re consulted by MD Alexi for RLE ulcer . Patient was seen by wound care on 02/23/24 for the same by DEBBEI Ojeda with wound care recommendations, plan of care and treatment orders in place. Dr. Truong was made aware of the above. Patient can d/c with the current plan of care and should follow up with an outpatient wound clinic, senior core java developer, or a research quality assurance specialist in her community, as [facility] does not have outpatient wound clinic. * Valeria Guillory - 02/26/2024 10:38 AM CDT 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 ?? At OSH, found to have MRSA bacteremia (02/15 cx),??PNA, and??L pectoralis major and multiple other soft tissue abscesses on CT chest, and R shoulder septic arthritis??on XR.??Completion imaging with CT and MRI of??L??shoulder demonstrated??subacromial/subdeltoid bursitis/abscess with involvement of muscle and osteomyelitis.??Pt was initially started on vanc/johnny/cefe, then vanc/johnny, then transitioned to vanc/cefe on 02/17 at OSH. High concern for seeding and possible endocarditis given multiple areas of infection noted; no vegetations on TTE. Transferred to [facility] on 02/21 d/t OSH ortho unable to intervene given comorbidities. ?? On admission to [facility], labs s/f leukocytosis (WBC 18>16.8), lactic wnl (1.3), elevated CRP of 8.3,elevated ESR 116, elevated eosinophils (10.7%). UA s/f 3+ LE, >100 WBC, 11-20 squams, trace bacteria, occasional yeast budding, among other findings. On vanc and cefe empirically.??Ortho performedR shoulder aspiration (5cc) which demonstrated 4376 PMN w/ 94% neutrophils; not concerning for septic R shoulder; pending cultures. ACS and ortho recommending IR drainage of L shoulder abscesses. Perortho note, no additional procedures. Infectious w/u so far: 02/21 blood cx pending; 02/21 R shouldersynovial fluid bacterial, anaerobe, AFB, fungal, GC cx pending. MRSA swab positive. GC urine screenpending collection. ?? Relevant PMH:?? - Hx of Schaalia turicensis bacteremia in Nov 2022 - Hx of staph epi bacteremia in May 2023 - Has R heel ulcer for the past 5mo (denies tenderness, change in appearance/drainage) Interval Since last seen by us, pt's HD catheter was exchanged yesterday, and the L shoulder abscess was drained (11ml of pus). Pt in dialysis this morning. Complains of RLQ pain w/ nausea; both sx began after pt was started on dialysis today. Denies fever, chills, CP. Interview limited d/t nausea. Antimicrobial History Current Antibiotics Vanc (02/17-present) ?? Prior Antibiotics At [facility] Cefepime (02/17-02/23) ?? Prior Antibiotics at OSH Vancomycin Cefepime Meropenem Inpatient Medications ??? 0.9% NaCl 3 mL Intracatheter q8h ??? acetaminophen 500 mg Oral q4h ??? alteplase 2 mg Intracatheter Dialysis Once ??? alteplase 2 mg Intracatheter Dialysis Once ??? amLODIPine 10 mg Oral QDAY ??? carvedilol 12.5 mg Oral BID WC ??? gabapentin 100 mg Oral TID ??? heparin 5,000 Units Subcutaneous q8h ??? insulin aspart 0-4 Units Subcutaneous AT BEDTIME ??? insulin aspart 0-6 Units Subcutaneous TID WC ??? insulin aspart 4 Units Subcutaneous TID WC ??? lidocaine 1 patch Transdermal q24h ??? lisinopril 20 mg Oral QDAY ??? polyethylene glycol 3350 17 g Oral QDAY ??? renal vitamin 1 tablet Oral QDAY ??? senna 8.6 mg Oral QDAY ??? sevelamer carbonate 800 mg Oral TID WC ??? sterile water (PF) ??? 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 Blurry vision in R eye 2/2 cataracts Cardiovascular: Rate and Rhythm: Normal rate and regular rhythm. Pulmonary: Effort: No respiratory distress. Breath sounds: No wheezing or rales. Abdominal: General: There is no distension. Palpations: Abdomen is soft. Comments: RLQ tenderness that began after pt started on dialysis this morning. Assoc w/ nausea. Musculoskeletal: Right lower leg: No edema. Comments: L AKA; no drainage from stump. Bilateral shoulder tenderness. No erythema, edema, fluctuance of bilateral shoulders. Skin: Comments: R heel ulcer (5mo) Lines: PIV, R chest HD catheter (first place 4mo ago; exchanged on 02/25/24), ext cath, R heel ulcer Lab Review CBC: Recent Labs Component Name 02/26/24 01302/25/24 0110 02/24/24 013 WBC 13.9* 15.9* 15.5* RBC 3.14* 3.15* 3.19* HGB 9.2* 9.3* 9.4* HCT 30.4* 30.3* 30.6* MCV 96.8 96.2 95.9 BMP: Recent Labs Component Name 02/26/2413602/25/24 0110 02/24/24 0130 02/23/24 0737 02/22/24 2214 06/10/23 0939 05/22/23 0521 NA 139 135* 135* - 136 143 143 CL 102 101 100 - 100 110* 110* CO2 26 25 24 - 26 25 26 BUN 32* 18 28* - 21 8 10 CREATININE 5.64* 4.15* 5.93* - 4.88* 1.96* 1.52* ALB - - - - 1.5* 1.5* 1.4* PROT - - - - 8.1 5.8* 5.3* - = values in this interval not displayed. CrCl cannot be calculated (Unknown ideal weight.). LFTs: Recent Labs Component Name 02/22/24221306/10/23 0939 05/22/23 0521 12/02/22 1955 08/25/22 0315 08/24/22 1404 08/24/22 0725 ALKPHOS 221* 139 143 - - - - ALT 11 8 5 - - - - AST 7 12 9 - - - - ALBUMIN - - - - 2.0* 2.1* 1.7* - = values in this interval not displayed. Coagulation: Recent Labs Component Name 02/22/24221304/26/23 0629 PT 14.6 16.3* INR 1.2 1.3 PTT - 29.8 Microbiology, Imaging and other diagnostic tests MICROBIOLOGY: Blood culture: 02/15 blood cx at OSH: MRSA 02/21 blood cx: NGTD at >72h ?? Urine culture: ?? Sputum culture: Wound culture: ?? Other serologies: 02/21 MRSA swab positive 02/21 R shoulder synovial fluid bacterial, anaerobe, AFB, fungal, GC cx: pending 02/23 gonorrhea/chlamydia urine screen: negative 02/24 L shoulder abscess drainage cultures: NGTD HISTOPATHOLOGY: None at this admission IMAGING & PROCEDURES: I have independently reviewed all pertinent imaging data. Reports available in EMR. 02/22 R FOOT XR Ulceration in the right heel with adjacent soft tissue swelling. Sclerosis in the right calcaneus is nonspecific. Osteomyelitis is not excluded. MRI would better assess. > Interpreting Provider: Kavita Borrero MD on 02/24/2024 2:33 PM XR SHOULDER LEFT 2VW OR MORE ?? Result Date: 02/23/2024 IMPRESSION: No acute fracture or dislocation of the left shoulder is identified. No evidence of abnormal intra-articular or periarticular soft tissue gas collection. > Dictated by Jean-Claude Sanchez MD (residential mortgage manager). I, Jed Dale MD have personally reviewed and interpreted this examination/study. > Interpreting Provider: Jed Dale MD on 02/23/2024 10:25 AM ?? XR SHOULDER RIGHT 2VW OR MORE ?? Result Date: 02/23/2024 IMPRESSION: 1. No acute osseous abnormality. 2. Several foci of soft tissue gas are suggested around the shoulder, potentially reflecting infection or postprocedural gas. > Interpreting Provider: Xander De Guzman MD on 02/23/2024 10:18 AM ?? XR CHEST Result Date: 02/23/2024 FINDINGS/IMPRESSION: Interval placement of a right IJ approach central venous access catheter whichterminates in the right atrium. There is no pulmonary consolidation, pleural effusion, or pneumothorax. The heart size is normal. ?? Assessment and Recommendations Gay Canales is a 33 year old female with a past medical history significant for T2DM, ESRD (on HD??TTS via R chest catheter), HTN, CHF, L foot??nec fasc??s/p L AKA, who??presented as a direct transfer from OSH. Currently being managed for MRSA bacteremia, L shoulder abscesses and r/o septic R shoulder. ?? # MRSA bacteremia # R heel ulcer 02/15 blood cultures at OSH were positive for MRSA. TTE at OSH did not show vegetations; MATT not done. Ddx for source of infection: R heel ulcer (unlikely; present for the past 5mo; s/p debridement months ago; no drainage; R foot XR w/ adjacent soft tissue swelling and non-specific sclerosis; osteo not ruled out, but we do not recommend MRI d/t low suspicion for osteo given superficial appearance of wound w/ granulation tissue; abx management also would not change w/ MRI findings since we are already treating L shoulder osteo) vs R chest HD catheter (present for the past 4mo; s/p catheter exchange on 02/24.) vs L AKA wound (unlikely; appears dry, non-erythematous, non-edematous) vs L shoulder abscess (s/p drainage on 02/24) vs other. Most likely source of bacteremia is L shoulder abscess, now s/p drainage. 02/21 blood cultures w/ NGTD. Plan: - Continue vancomycin for MRSA coverage (EOT 04/08/24 which will provide 6wk of IV abx after source control w/ L shoulder abscess drainage on 02/24) - Rationale: 6wks of IV abx recommended d/t concurrent osteomyelitis of L acromion/humeral head - F/u 02/21 blood cultures (NGTD) - Consider MATT if 02/21 blood cultures are positive for MRSA - Check CBC with auto diff and CMP weekly while on IV antibiotics - Schedule for outpatient ID follow-up in 3-4wks (appointment between 03/17-03/24) - We will sign off at this time. Please page with additional questions/concerns. # r/o R shoulder septic arthritis Hx s/f bilateral shoulder pain x4wks. No hx of trauma to this shoulder. On exam, R shoulder appearsnon-erythematous and without fluctuations; mildly tender. Labs s/f leukocytosis, elevated ESR/CRP. Imaging w/ R shoulder XR demonstrated erosions of distal right clavicle suspicious for septic arthritis, and soft tissue gas posterior to the right humeral head, consistent with infection. Pt is now s/p R shoulder aspiration (5cc) w/ ortho; analysis demonstrated 4376 PMNs w/ 94% neutrophils; not concerning for septic R shoulder; cultures NGTD. ?? Plan: - Adjust abx as needed once aspiration cx finalizes - F/u shoulder aspiration culture # L shoulder soft tissue abscesses (L pec major, bursitis) # osteomyelitis of acromion and humeral head Hx s/f bilateral shoulder pain x4wks. On exam, L shoulder appears non- erythematous and without fluctuations; mildly tender. Labs s/f leukocytosis, elevated ESR/CRP. Completion imaging at OSH with CT and MRI of left shoulder was reviewed by ACS at [facility]; demonstrates severe infectious subacromial/subdeltoid bursitis (abscess) with extension of an abscess into teres minor muscle belly, osteomyelitis involving acromion and humeral head, and worsened visualized abscess and myositis involving left pectoralis major muscle.??ACS was initially consulted for drainage, but recommend IR or ortho consult d/t involvement of tendons, muscles, bones/joint. S/p drainage w/ IR on 02/24 (11mL pus drained); pending cultures. ?? Plan: - F/u L shoulder abscess culture from 02/24 IR drainage - Continue vanc as above for MRSA coverage; adjust as needed once abscess cx finalizes - Check CBC with auto diff and CMP weekly while on IV antibiotics ?? # r/o PNA Hx s/f PNA concerns at OSH, however, pt denies all respiratory sx (denies SOB, cough, sputum production). On exam, lungs are clear. Labs s/f MRSA on nasal swab. Imaging at [facility] w/ CXR does not demonstrate consolidations nor effusions. ?? Plan: - No treatment indicated Screening 04/27/23 Hep C Ab NR. 04/27/23 and 02/24/24 HIV NR. Allergies No Known Allergies Renal Function CrCl cannot be calculated (Unknown ideal weight.). Hardware R chest dialysis catheter QTc 05/17/23 EKG: QTc 452 We will sign off at this time. Please page with additional questions/concerns. Patient seen, examined, and case/plan were discussed with my attending physician, Dr. Lackey. Case discussed with primary team. Valeria Guillory MS4 [facility] ID Clinic ID Clinic Associated attestation - Woo Lackey MD - 02/26/2024 3:16 PM CDT I have reviewed the record and independently examined the patient. I agree with the findings and plan of care as documented by the medical student. Gay Canales is a 33 year old female with PMH of HTN, sickle cell, ESRD on HD, L-foot gangrene s/p L-AKA transferred from OSH on 02/21 for MRSA bacteremia, L- pectoralis muscle abscess/osteomyelitis, R-shoulder septic arthritis and concern for endocarditis. TTE at OSH showed no vegetation. R-shoulder aspiration had 4300 WBC (not suggestive of septicarthritis). Assessment and Recommendations 1. MRSA bacteremia with L-pectoralis abscess with concern for osteomyelitis. MRI of L shoulder (OSH) showed findings suggestive of subacromial/subdeltoid bursitis/abscess with involvement of muscle and osteomyelitis. HD catheter, PNA, L-pectoralis abscess possible sources. Abscess near L-shoulder aspirated (11 ml pus) on 02/24. Gram stain showed no organisms and culture negative to date. On vanc. Follow up blood cultures (02/21) negative to date. - Continue vanc for 6 weeks from time of purulent collection (EOT 04/07/24) - Follow smears and cultures of L-shoulder abscess - CBC with diff, CMP, vanc level weekly 2. R-heel wound. Appears superficial. Will sign off. Call us with any questions. Woo Lackey MD, PhD * GuillerminatanyaterriNicolásDO - 02/26/2024 9:15 AM CDT [facility] INTERNAL MEDICINE PROGRESS NOTE Patient: Gay Canales Sex: female Age: [age] year old Date of : 1990 Date of Admission: 02/22/2024 Date: 02/26/2024 LOS: 4 SUBJECTIVE Interval History: -plan for HD today 2L goal, will monitor phos levels as increased from 5 to 7.4 today will considerincreasing renvela if phos elevated tomorrow -tolerated IR drainage to L shoulder well, pending culture results but prelim heavy PMNs no organisms, ucx still pending -BCX NGTD, MRSA+ Hospital Course: 33 y/o F w/ PMH of Dialysis (MWF- per pt discuss likely 2/2 poorly controlled T2DM), HTN, Sickle Cell (new diagnosis), HFpEF (70-75% G2DD 05/2023), T2DM (diagnosed age 18), Left 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 Patient initially presented to OSH for SOB and fevers. Found to have PNA and started on meropenem/vancomycin. Bcx from 02/15 were pos for staph aureas and TTE was done w/o evidence of vegetation. ID was consulted and patient transitioned to vanc/cefe. Due to multiple co morbidities patient was transferred to [facility] for orthopedic evaluation. Upon arrival patient HDS. Labs significant for WBC 13, Hgb 9.6. Bcx were drawn. Patient continued on vanc/cefe. Orthopedic surgery consulted and performed R shoulder aspiration showing 4376 PMN w/ 94% neutrophils. ACS consulted for potential L shoulder abscess drainage. OBJECTIVE Vital Signs: Vitals: 02/25/24 1802 02/25/24 2000 02/26/24 0011 02/26/24 0500 BP: 139/93 129/74 124/76 Pulse: 77 79 79 Resp: 18 16 16 16 Temp: 98 ??F (36.7 ??C) 98.5 ??F (36.9 ??C) 98.7 ??F (37.1 ??C) SpO2: 98% 96% 95% 95% Temp Min: 97.4 ??F (36.3 ??C) Max: 99.2 ??F (37.3 ??C), Pulse Min: 59 Max: 85, Resp Min: 10 Max: 26, BP Min: 91/61 Max: 158/83 Intake & Output: In: 800 [P.O.:800] Out: 1500 [Urine:1500] Physical Exam: Physical Exam Constitutional: General: She is not in acute distress. HENT: Head: Normocephalic and atraumatic. Eyes: General: No scleral icterus. Extraocular Movements: Extraocular movements intact. Pupils: Pupils are equal, round, and reactive to light. Cardiovascular: Rate and Rhythm: Normal rate and regular rhythm. Pulses: Normal pulses. Heart sounds: No murmur heard. No gallop. Pulmonary: Effort: Pulmonary effort is normal. No respiratory distress. Breath sounds: No wheezing or rales. Abdominal: General: Bowel sounds are normal. There is no distension. Palpations: Abdomen is soft. Tenderness: There is no abdominal tenderness. Musculoskeletal: General: No swelling. Comments: L AKA B/l Shoulder joints w/ TTP Skin: Capillary Refill: Capillary refill takes less than 2 seconds. Coloration: Skin is not jaundiced. Comments: R chest HD line R foot plantar surface chronic healing ulcer Neurological: General: No focal deficit present. Mental Status: She is alert and oriented to person, place, and time. Cranial Nerves: No cranial nerve deficit. Current Medications: Scheduled: ??? 0.9% NaCl 3 mL Intracatheter q8h ??? acetaminophen 500 mg Oral q4h ??? amLODIPine 10 mg Oral QDAY ??? carvedilol 12.5 mg Oral BID WC ??? gabapentin 100 mg Oral TID ??? heparin 5,000 Units Subcutaneous q8h ??? insulin aspart 0-4 Units Subcutaneous AT BEDTIME ??? insulin aspart 0-6 Units Subcutaneous TID WC ??? insulin aspart 4 Units Subcutaneous TID WC ??? lidocaine 1 patch Transdermal q24h ??? lisinopril 20 mg Oral QDAY ??? renal vitamin 1 tablet Oral QDAY ??? sevelamer carbonate 800 mg Oral TID WC ??? vancomycin (VANCOCIN) IV dose per pharmacy Does not apply DIRECTED Continuous: PRN: ??? SALINE LOCK, INSERT AND MAINTAIN AND 0.9% NaCl AND 0.9% NaCl ??? dextrose IV for hypoglycemia OR dextrose IV for hypoglycemia OR glucagon ??? glucose (Diabetic Use) gel ??? heparin ??? melatonin ??? 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, with long-term current use of insulin (HCC) (POA: Yes) Insomnia (POA: Yes) Shoulder abscess (POA: Yes) Leukocytosis (POA: Yes) #R Shoulder Septic Arthritis #L Soft tissue Abscess - Unclear Source - OSH did TTE without vegetations - s/ aspiration of R shoulder joint -PMN 4376, 94% neutrophils -Blood Culture w/ NGTD - ACS consulted for L shoulder abscess, recommending discussion w/ orthopedic surgery -s/p 1 day of IV cefepime PLAN - On Vanc IV, MRSA + --tolerated IR drainage to L shoulder well, pending culture results but prelim heavy PMNs no organisms - orthopedic surgery consulted: will F/U cx results and determine EOT for abx with ID assistance - Lidocaine patch - Pain control: tylenol 500 q4h, oxy 5/10 PRN -constipation: started miralax daily and senokot daily -F/U PT OT recs #Staph Bacteremia #Leukocytosis - Bcx pos at OSH 02/15 - Repeat cultures were done 02/17 - CXR mild interstitial markings but not pleural eff or consolidations 02/21 - Originally on johnny/cefe/vanc on 02/15 --> Johnny/vanc. Transitioned to cefe/vanc 02/17 - TTE w/o vegetation at OSH, no need for MATT per ID - Has chest port for HD, exchanged on 02/24 w/ interventional nephro - Bcx NGTD PLAN - ID following - Cont Vanc IV - F/U UCX and above L shoulder cx #Right Heel Ulcer - Wound Care Consult -CRP 8.3, ESR 116 -XR R foot 02/22: Ulceration in the right heel with adjacent soft tissue swelling. Sclerosis in the right calcaneus is nonspecific. Osteomyelitis is not excluded -per ID no need for MRI of R foot, given will already be on abx for R shoulder abscess, and XR findings attributed to healing ulcer -consulted wound care , recs M-W-F: Cleanse with VASHE soak (5 minutes with Vashe impregnated 4 X 4), scrub wound bed. Apply IODOSORB gel 2mm or nickel thickness to entire wound bed. Apply open fluffed gauze to fill in the deadspace. Apply cover dressing. Apply heel offloading boot. Interdry AG to abdominal pannus. Antifungal barrier cream to areas affected by incontinence. ?? #ESRD T/Th/Sat #Bone mineral disease - Nephro consulted for dialysis -Access: Chest port, appears non-infected, no abscess or fluid pockets near line - Per patient, never had kidney biopsy or was told why she was ESRD, if upon review does not have any biopsy or further workups, may be beneficial for outpatient f/u and/or biopsy to assess cause - per pt diagnosed with T2Dm age 18 poorly controlled, unable to cedric metformin, off meds diabetic coma age 20 and required HD briefly at that time, and now restarted HD 4 months ago -last HD 02/23: UF 2L -may need EPO given trans sat 15% borderline on 02/24 -Vit D low 12.3, PTH 93H -Nephro following -perm cath placed 02/24 -cont sevelamer 800mg TID -plan for HD today will monitor phos closely ?? #HTN - Continue home Lisinopril 20mg, Coreg 12.5mg and Amlodipine 10mg -Bp well controlled on current regimen ?? #T2DM -last hgba1c 6.5 (02/23/24) - 4U TID w/ meals + SSI - Cont home Gabapentin 100 TID - Not on basal insulin at home, stated she uses Insulin PRN for BG over 200 ?? #Insonmia - Melatonin 3mg ?? #?Sickle Cell #Anemia of Chronic disease pattern per iron studies - Patient stated she was diagnosed at [place], unclear if it was sickle cell trait vs disease - Iron 23L, Ferritin 833H, TIBC 149L, T sat 15 borderline, B12 667 wnl folate 10.2 wnl - Will likely need further investigation, likely o/p heme/onc referral Code: FULL Diet: Diabetic/renal Electrolytes: Replete PRN PPx: Heparin Access: PIV, HD line Dispo: Pending further eval The above assessment and plan will be discussed with the attending. This note is not final until attested by attending physician. Nicolás Truong DO Internal Medicine Resident [facility] 02/26/2024 9:16 AM Associated attestation - Joe Vargas MD - 02/26/2024 2:52 PM CDT I have seen and examined the patient with the resident and I agree with the findings and plan of care as documented by the resident. 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 Currently no activity order or weight- bearing clarification for R UE/LE in chart. Will need these orders to be able to initiate therapy evaluation. * Elie Almanzar PT - 02/26/2024 8:10 AM CDT [facility] Department of Physical Medicine & Rehabilitation Progress Note Patient: Gay Canales Med Record Number: [id number] Date of : 1990 Age: [age] year old 02/26/24 0810 Missed Visit Missed Visit No Activity Order;Weight Bearing Status Please clarify WB status of RUE and update with appropriate activity order for PT to initiate evaluation. PM - Patient off the floor for dialysis at time of therapists arrival to room. * Terri Garcia RN - 02/26/2024 6:35 AM CDT Diagnosis (BOBBY/CRF): crf Non-Renal Diagnosis: septic arthritis Isolation Contact Does patient have signs or [...] be given with dialysis: heparin Report from: Otis SAMUEL Phone number: [phone] * Otis Merrill RN - 02/26/2024 5:34 AM CDT END OF SHIFT SUMMARY Issues/Changes: No acute events overnight. Procedural sites c/d/i. Wound care to perineum. Patient or Family Concerns: No issues/concerns voiced overnight. Pain Issues: Medicated accordingly. Patient Progress: Voiding, no BM. Vitals stable, safety maintained. * Leila Wang RN - 02/25/2024 6:47 PM CDT Problem: Pain/Discomfort Goal: Patient exhibits [...] is maintained or improved Outcome: Progressing Problem: Nutrient: Increased nutrient needs (specify) Goal: Total intake will meet estimated nutrient needs Outcome: Progressing Problem: Hemodynamic Status/Cardiac Output Goal: Patient has stable vital signs and fluid balance Outcome: Progressing Problem: Fluid and Electrolyte Imbalance Goal: Fluid and electrolyte balance are achieved/maintained Outcome: Progressing Problem: Infection Goal: Signs and symptoms of infections are decreased or avoided Outcome: Progressing * Susie Enrique OT - 02/25/2024 3:36 PM CDT [facility] Department of Physical Medicine & Rehabilitation Progress Note Patient: Gay Canales Med Record Number: [id number] Date of : 1990 Age: [age] year old 02/25/24 1500 Missed Visit Missed Visit No Activity Order Orders received for OT evaluation. Patient currently with no activity order. Will need activity order and weight-bearing clarification order for R UE for OT to initiate evaluation. * Maribell Mejias RN - 02/25/2024 11:11 AM CDT Interventional Radiology Nursing - End Procedure Note Sedation: Versed: 1 mg, Fentanyl: 50 mcg Sedation start time: 1057 hours Procedure start time: 1052 hours Procedure end time: 1111 hours Additional drugs: 500 units Heparin Fluoroscopy time: 0.8 min * Maribell Bell RN - 02/25/2024 10:27 AM CDT Interventional Radiology Nursing - End Procedure Note Sedation: Versed: 1 mg, Fentanyl: 50 mcg Sedation start time: 1012 hours Procedure start time: 1018 hours Procedure end time: 1026 hours Additional drugs: None * Valeria Guillory - 02/25/2024 10:00 AM CDT [facility] Infectious Diseases Progress Note Date of Admission: 02/22/2024 8:14 PM Length of Stay: Day 3 Room: 108/01 Attending: Kranthi Miles MD HPI Kiara L Wright??is a 33 year old??female??with a PMH significant for T2DM, ESRD (on HD??TTS via R chest catheter), HTN, recently diagnosed sickle cell (trait vs dz unclear), CHF, L foot??nec fasc??s/p L AKA, who??initially??presented to??OSH??on 02/21 for generalized muscle weakness and overall fatigue.??Pt also reported 4wks of bilateral shoulder pain. ?? At OSH, found to have MRSA bacteremia (02/15 cx),??PNA, and??L pectoralis major and multiple other soft tissue abscesses on CT chest, and R shoulder septic arthritis??on XR.??Completion imaging with CT and MRI of??L??shoulder demonstrated??subacromial/subdeltoid bursitis/abscess with involvement of muscle and osteomyelitis.??Pt was initially started on vanc/johnny/cefe, then vanc/johnny, then transitioned to vanc/cefe on 02/17 at OSH. High concern for seeding and possible endocarditis given multiple areas of infection noted; no vegetations on TTE. Transferred to [facility] on 02/21 d/t OSH ortho unable to intervene given comorbidities. ?? On admission to [facility], labs s/f leukocytosis (WBC 18>16.8), lactic wnl (1.3), elevated CRP of 8.3,elevated ESR 116, elevated eosinophils (10.7%). UA s/f 3+ LE, >100 WBC, 11-20 squams, trace bacteria, occasional yeast budding, among other findings. On vanc and cefe empirically.??Ortho performedR shoulder aspiration (5cc) which demonstrated 4376 PMN w/ 94% neutrophils; not concerning for septic R shoulder; pending cultures. ACS and ortho recommending IR drainage of L shoulder abscesses. Perortho note, no additional procedures. Infectious w/u so far: 02/21 blood cx pending; 02/21 R shouldersynovial fluid bacterial, anaerobe, AFB, fungal, GC cx pending. MRSA swab positive. GC urine screenpending collection. ?? Relevant PMH:?? - Hx of Schaalia turicensis bacteremia in Nov 2022 - Hx of staph epi bacteremia in May 2023 - Has R heel ulcer for the past 5mo (denies tenderness, change in appearance/drainage) Interval Since last seen by us, pt received HD yesterday (UF 2L). Pt denies SOB, chest pain, cough/sputum production, fever, chills, abd pain. Pt reports continued discomfort from bilateral shoulder soreness (R worse than L); shoulders appear non-erythematous, not warm. Pt asked about why her HD catheter required replacement and why she could not get a fistula instead; was explained that we are concerned about seeding, so exchange is recommended. Although AVF may be an option, it can take time to receive it, so a HD catheter is still needed in the meantime. Recommended addressing further catheter related questions w/ the nephrology team. Antimicrobial History Current Antibiotics Vanc (02/17-present) ?? Prior Antibiotics At U Cefepime (02/17-02/23) ?? Prior Antibiotics at OSH Vancomycin Cefepime Meropenem Inpatient Medications ??? 0.9% NaCl 3 mL Intracatheter q8h ??? acetaminophen 500 mg Oral q4h ??? amLODIPine 10 mg Oral QDAY ??? carvedilol 12.5 mg Oral BID WC ??? gabapentin 100 mg Oral TID ??? heparin 5,000 Units Subcutaneous q8h ??? insulin aspart 0-4 Units Subcutaneous AT BEDTIME ??? insulin aspart 0-6 Units Subcutaneous TID WC ??? insulin aspart 4 Units Subcutaneous TID WC ??? lidocaine 1 patch Transdermal q24h ??? lisinopril 20 mg Oral QDAY ??? renal vitamin 1 tablet Oral QDAY ??? sevelamer carbonate 800 mg Oral TID WC ??? 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 Blurry vision in R eye 2/2 cataracts Cardiovascular: Rate and Rhythm: Normal rate and regular rhythm. Pulmonary: Effort: No respiratory distress. Breath sounds: No wheezing or rales. Abdominal: General: There is no distension. Palpations: Abdomen is soft. Tenderness: There is no abdominal tenderness. Musculoskeletal: Right lower leg: No edema. Comments: L AKA; no drainage from stump. Bilateral shoulder tenderness. No erythema, edema, fluctuance of bilateral shoulders. Skin: Comments: R heel ulcer (5mo); heel was wrapped in Kerlix (last dressed overnight) Lines: PIV, R chest HD catheter (4mo), ext cath, R heel ulcer Lab Review CBC: Recent Labs Component Name 02/25/24 0110 02/24/24 0130 02/23/24 0737 WBC 15.9* 15.5* 16.8* RBC 3.15* 3.19* 3.20* HGB 9.3* 9.4* 9.7* HCT 30.3* 30.6* 30.4* MCV 96.2 95.9 95.0 BMP: Recent Labs Component Name 02/25/24 0110 02/24/24 0130 02/23/24 0737 02/22/24221306/10/23 0939 05/22/23 0521 NA 135* 135* 138 136 143 143 CL 101 100 102 100 110* 110* CO2 25 24 26 26 25 26 BUN 18 28* 22 21 8 10 CREATININE 4.15* 5.93* 5.35* 4.88* 1.96* 1.52* ALB - - - 1.5* 1.5* 1.4* PROT - - - 8.1 5.8* 5.3* CrCl cannot be calculated (Unknown ideal weight.). LFTs: Recent Labs Component Name 02/22/24221306/10/23 0939 05/22/23 0521 12/02/22 1955 08/25/22 0315 08/24/22 1404 08/24/22 0725 ALKPHOS 221* 139 143 - - - - ALT 11 8 5 - - - - AST 7 12 9 - - - - ALBUMIN - - - - 2.0* 2.1* 1.7* - = values in this interval not displayed. Coagulation: Recent Labs Component Name 02/22/24221304/26/23 0629 PT 14.6 16.3* INR 1.2 1.3 PTT - 29.8 Microbiology, Imaging and other diagnostic tests MICROBIOLOGY: Blood culture: 02/15 blood cx at OSH: MRSA 02/21 blood cx: NGTD at >48h ?? Urine culture: ?? Sputum culture: Wound culture: ?? Other serologies: 02/21 MRSA swab positive 02/21 R shoulder synovial fluid bacterial, anaerobe, AFB, fungal, GC cx: pending GC urine screen: pending collection L shoulder abscess drainage cultures: pending HISTOPATHOLOGY: None at this admission IMAGING & PROCEDURES: I have independently reviewed all pertinent imaging data. Reports available in EMR. 02/22 R FOOT XR Ulceration in the right heel with adjacent soft tissue swelling. Sclerosis in the right calcaneus is nonspecific. Osteomyelitis is not excluded. MRI would better assess. > Interpreting Provider: Kavita Borrero MD on 02/24/2024 2:33 PM XR SHOULDER LEFT 2VW OR MORE ?? Result Date: 02/23/2024 IMPRESSION: No acute fracture or dislocation of the left shoulder is identified. No evidence of abnormal intra-articular or periarticular soft tissue gas collection. > Dictated by Jean-Claude Sanchez MD (residential mortgage manager). I, Jed Dale MD have personally reviewed and interpreted this examination/study. > Interpreting Provider: Jed Dale MD on 02/23/2024 10:25 AM ?? XR SHOULDER RIGHT 2VW OR MORE ?? Result Date: 02/23/2024 IMPRESSION: 1. No acute osseous abnormality. 2. Several foci of soft tissue gas are suggested around the shoulder, potentially reflecting infection or postprocedural gas. > Interpreting Provider: Xander De Guzman MD on 02/23/2024 10:18 AM ?? XR CHEST Result Date: 02/23/2024 FINDINGS/IMPRESSION: Interval placement of a right IJ approach central venous access catheter whichterminates in the right atrium. There is no pulmonary consolidation, pleural effusion, or pneumothorax. The heart size is normal. ?? Assessment and Recommendations Gay Canales is a 33 year old female with a past medical history significant for T2DM, ESRD (on HD??TTS via R chest catheter), HTN, CHF, L foot??nec fasc??s/p L AKA, who??presented as a direct transfer from OSH. Currently being managed for MRSA bacteremia, L shoulder abscesses and r/o septic R shoulder. ?? # MRSA bacteremia # R heel ulcer 02/15 blood cultures at OSH were positive for MRSA. TTE at OSH did not show vegetations; MATT not done. Ddx for source of infection: R heel ulcer (unlikely; present for the past 5mo; s/p debridement months ago; no drainage; R foot XR w/ adjacent soft tissue swelling and non-specific sclerosis; osteo not ruled out, but we do not recommend MRI d/t low suspicion for osteo given superficial appearance of wound w/ granulation tissue; abx management also would not change w/ MRI findings since we are already treating L shoulder osteo) vs R chest HD catheter (present for the past 4mo) vs L AKA wound (unlikely; appears dry, non- erythematous, non-edematous) vs other Plan: - Continue vancomycin for MRSA coverage - EOT to be determined, though will likely need at least 4-6wks of abx d/t concurrent osteomyelitisof L acromion/humeral head - F/u 02/21 blood cultures - Consider MATT if 02/21 blood cultures are positive for MRSA - Plan for HD catheter exchange today - No further imaging of R foot is recommended d/t low concern for osteomyelitis # r/o R shoulder septic arthritis Hx s/f bilateral shoulder pain x4wks. No hx of trauma to this shoulder. On exam, R shoulder appearsnon-erythematous and without fluctuations; mildly tender. Labs s/f leukocytosis, elevated ESR/CRP. Imaging w/ R shoulder XR demonstrated erosions of distal right clavicle suspicious for septic arthritis, and soft tissue gas posterior to the right humeral head, consistent with infection. Pt is now s/p R shoulder aspiration (5cc) w/ ortho; analysis demonstrated 4376 PMNs w/ 94% neutrophils; not concerning for septic R shoulder; pending cultures. ?? Plan: - Adjust abx as needed once aspiration cx finalizes - F/u shoulder aspiration culture # L shoulder soft tissue abscesses (L pec major, bursitis) # osteomyelitis of acromion and humeral head Hx s/f bilateral shoulder pain x4wks. On exam, L shoulder appears non- erythematous and without fluctuations; mildly tender. Labs s/f leukocytosis, elevated ESR/CRP. Completion imaging at OSH with CT and MRI of left shoulder was reviewed by ACS at U; demonstrates severe infectious subacromial/subdeltoid bursitis (abscess) with extension of an abscess into teres minor muscle belly, osteomyelitis involving acromion and humeral head, and worsened visualized abscess and myositis involving left pectoralis major muscle.??ACS was initially consulted for drainage, but recommend IR or ortho consult d/t involvement of tendons, muscles, bones/joint. S/p drainage w/ IR on 02/24 (11mL pus drained). ?? Plan: - F/u L shoulder abscess culture from 02/24 IR drainage - Continue vanc for MRSA coverage; adjust as needed once abscess cx finalizes - Check CBC with auto diff and CMP weekly while on IV antibiotics ?? # r/o PNA Hx s/f PNA concerns at OSH, however, pt denies all respiratory sx (denies SOB, cough, sputum production). On exam, lungs are clear. Labs s/f MRSA on nasal swab. Imaging at [facility] w/ CXR does not demonstrate consolidations nor effusions. ?? Plan: - No treatment indicated Screening 04/27/23 Hep C Ab NR. 04/27/23 and 02/24/24 HIV NR. Allergies No Known Allergies Renal Function CrCl cannot be calculated (Unknown ideal weight.). Hardware R chest dialysis catheter QTc 05/17/23 EKG: QTc 452 Thank you for allowing us to participate in the care of this patient. We will continue to follow and monitor with you closely. Patient seen, examined, and case/plan were discussed with my attending physician, Dr. Lackey. Case discussed with primary team. Valeria Guillory MS4 [facility] ID Clinic ID Clinic Associated attestation - Woo Lackey MD - 02/25/2024 5:38 PM CDT I have reviewed the record and independently examined the patient. I agree with the findings and plan of care as documented by the medical student. Gay Canales is a 33 year old female with PMH of HTN, sickle cell, ESRD on HD, L-foot gangrene s/p L-AKA transferred from OSH on 02/21 for MRSA bacteremia, L- pectoralis muscle abscess/osteomyelitis, R-shoulder septic arthritis and concern for endocarditis. TTE at OSH showed no vegetation. R-shoulder aspiration had 4300 WBC (not suggestive of septicarthritis). Assessment and Recommendations 1. MRSA bacteremia with L-pectoralis abscess with concern for osteomyelitis. MRI of L shoulder (OSH) showed findings suggestive of subacromial/subdeltoid bursitis/abscess with involvement of muscle and osteomyelitis. HD catheter, PNA, L-pectoralis abscess possible sources. Abscess near L-shoulder aspirated (11 ml pus) on 02/24 and sent for smears and cultures. On vanc. Follow up blood cultures (02/21) negative to date. - Continue vanc. We plan to treat for 6 weeks. - Follow smears and cultures of L-shoulder abscess 2. R-heel wound. Appears superficial. Woo Lackey MD, PhD * Khloe Lowery - 02/25/2024 9:29 AM CDT Updated progress notes sent to patient's Outpatient Hemodialysis Dialysis center. Khloe Lowery Kidney Navigator/ [facility] Ascom: [phone] Office: [phone] * Nicolás Truong DO - 02/25/2024 7:27 AM CDT [facility] INTERNAL MEDICINE PROGRESS NOTE Patient: Gay Canales Sex: female Age: [age] year old Date of : 1990 Date of Admission: 02/22/2024 Date: 02/25/2024 LOS: 3 SUBJECTIVE Interval History: -s/p HD yesterday 2L UF, tolerated well, change to perm cath later today -Vit D low 12.3, PTH 93H -iron studies trans sat 15% borderline may need epo -electrolytes stable -IR to drain L shoulder abscess today?, does not need to remain NPO, renal diet ordered -F/U UCx and consult ID whether MRI of R Foot needed given XR inconclusive, BCX NGTD, MRSA+ Hospital Course: 33 y/o F w/ PMH of Dialysis (MWF- per pt discuss likely 2/2 poorly controlled T2DM), HTN, Sickle Cell (new diagnosis), HFpEF (70-75% G2DD 05/2023), T2DM (diagnosed age 18), Left 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 Patient initially presented to OSH for SOB and fevers. Found to have PNA and started on meropenem/vancomycin. Bcx from 02/15 were pos for staph aureas and TTE was done w/o evidence of vegetation. ID was consulted and patient transitioned to vanc/cefe. Due to multiple co morbidities patient was transferred to [facility] for orthopedic evaluation. Upon arrival patient HDS. Labs significant for WBC 13, Hgb 9.6. Bcx were drawn. Patient continued on vanc/cefe. Orthopedic surgery consulted and performed R shoulder aspiration showing 4376 PMN w/ 94% neutrophils. ACS consulted for potential L shoulder abscess drainage. OBJECTIVE Vital Signs: Vitals: 02/24/24199902/24/24 2307 02/25/24 0509 02/25/24 0510 BP: 124/75 132/74 Pulse: 80 84 Resp: 16 18 16 Temp: 98.4 ??F (36.9 ??C) 98.8 ??F (37.1 ??C) SpO2: 96% 91% 95% Temp Min: 97.4 ??F (36.3 ??C) Max: 99.2 ??F (37.3 ??C), Pulse Min: 59 Max: 85, Resp Min: 16 Max: 20, BP Min: 91/61 Max: 158/83 Intake & Output: In: 920 [P.O.:920] Out: 4700 [Urine:2700] Physical Exam: Physical Exam Constitutional: General: She is not in acute distress. HENT: Head: Normocephalic and atraumatic. Eyes: General: No scleral icterus. Extraocular Movements: Extraocular movements intact. Pupils: Pupils are equal, round, and reactive to light. Cardiovascular: Rate and Rhythm: Normal rate and regular rhythm. Pulses: Normal pulses. Heart sounds: No murmur heard. No gallop. Pulmonary: Effort: Pulmonary effort is normal. No respiratory distress. Breath sounds: No wheezing or rales. Abdominal: General: Bowel sounds are normal. There is no distension. Palpations: Abdomen is soft. Tenderness: There is no abdominal tenderness. Musculoskeletal: General: No swelling. Comments: L AKA B/l Shoulder joints w/ TTP Skin: Capillary Refill: Capillary refill takes less than 2 seconds. Coloration: Skin is not jaundiced. Comments: R chest HD line Neurological: General: No focal deficit present. Mental Status: She is alert and oriented to person, place, and time. Cranial Nerves: No cranial nerve deficit. Current Medications: Scheduled: ??? 0.9% NaCl 3 mL Intracatheter q8h ??? acetaminophen 500 mg Oral q4h ??? amLODIPine 10 mg Oral QDAY ??? carvedilol 12.5 mg Oral BID WC ??? gabapentin 100 mg Oral TID ??? heparin 5,000 Units Subcutaneous q8h ??? insulin aspart 0-4 Units Subcutaneous AT BEDTIME ??? insulin aspart 0-6 Units Subcutaneous TID WC ??? insulin aspart 4 Units Subcutaneous TID WC ??? lidocaine 1 patch Transdermal q24h ??? lisinopril 20 mg Oral QDAY ??? renal vitamin 1 tablet Oral QDAY ??? sevelamer carbonate 800 mg Oral TID WC ??? vancomycin (VANCOCIN) IV dose per pharmacy Does not apply DIRECTED Continuous: PRN: ??? SALINE LOCK, INSERT AND MAINTAIN AND 0.9% NaCl AND 0.9% NaCl ??? dextrose IV for hypoglycemia OR dextrose IV for hypoglycemia OR glucagon ??? glucose (Diabetic Use) gel ??? heparin ??? melatonin ??? 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, with long-term current use of insulin (HCC) (POA: Yes) Insomnia (POA: Yes) Shoulder abscess (POA: Yes) Leukocytosis (POA: Yes) #R Shoulder Septic Arthritis #L Soft tissue Abscess - Unclear Source - OSH did TTE without vegetations - s/ aspiration of R shoulder joint -PMN 4376, 94% neutrophils -Blood Culture w/ NGTD - ACS consulted for L shoulder abscess, recommending discussion w/ orthopedic surgery -s/p 1 day of IV cefepime PLAN - On Vanc IV, MRSA + - F/U Ucx and R should abscess cx - orthopedic surgery consulted: will F/U cx results from IR drain today, confirmed w IR no need to remain NPO, renal diet ordered - Lidocaine patch - Pain control: tylenol 500 q4h, oxy 5/10 PRN ?? #Concern for BL PNA from OSH - CXR mild interstitial markings but not pleural eff or consolidations 02/21 - MRSA Nares Positive #Staph Bacteremia #Leukocytosis - Bcx pos at OSH 02/15 - Repeat cultures were done 02/17 - Originally on johnny/cefe/vanc on 02/15 --> Johnny/vanc. Transitioned to cefe/vanc 02/17 - TTE w/o vegetation at OSH - Has chest port for HD - Bcx NGTD PLAN - ID following - Cont Vanc IV - Repeat Cx pending, if cultures continue to be positive may need repeat TTE vs MATT or consideration of chest port removal - F/U UCX #Right Heel Ulcer - Wound Care Consult -CRP 8.3, ESR 116 -XR R foot 02/22: Ulceration in the right heel with adjacent soft tissue swelling. Sclerosis in the right calcaneus is nonspecific. Osteomyelitis is not excluded -per ID no need for MRI of R foot, given will already be on abx for R shoulder abscess, and XR findings attributed to healing ulcer ?? #ESRD T/Th/Sat #Bone mineral disease - Nephro consulted for dialysis -Access: Chest port, appears non-infected, no abscess or fluid pockets near line - Per patient, never had kidney biopsy or was told why she was ESRD, if upon review does not have any biopsy or further workups, may be beneficial for outpatient f/u and/or biopsy to assess cause - per pt diagnosed with T2Dm age 18 poorly controlled, unable to cedric metformin, off meds diabetic coma age 20 and required HD briefly at that time, and now restarted HD 4 months ago -last HD 02/23: UF 2L -may need EPO given trans sat 15% borderline on 02/24 -Vit D low 12.3, PTH 93H -Nephro following -exchange to perm cath later today ?? #HTN - Continue home Lisinopril 10mg, Coreg 12.5mg and Amlodipine 10mg -Bp well controlled on current regimen ?? #T2DM -last hgba1c 6.5 (02/23/24) - 4U TID w/ meals + SSI - Cont home Gabapentin 100 TID - Not on basal insulin at home, stated she uses Insulin PRN for BG over 200 ?? #Insonmia - Melatonin 3mg ?? #?Sickle Cell #Anemia of Chronic disease pattern - Patient stated she was diagnosed at [facility], unclear if it was sickle cell trait vs disease - Iron 23L, Ferritin 833H, TIBC 149L, T sat 15 borderline, B12 667 wnl folate 10.2 wnl - Will likely need further investigation, likely o/p heme/onc referral Code: FULL Diet: Diabetic/renal Electrolytes: Replete PRN PPx: Heparin Access: PIV, HD line Dispo: Pending further eval The above assessment and plan will be discussed with the attending. This note is not final until attested by attending physician. Nicolás Truong DO Internal Medicine Resident [facility] 02/25/2024 7:38 AM Associated attestation - Kranthi Miles MD - 02/25/2024 3:25 PM CDT I have verified the documentation of the acting international sourcing manager/resident/DAYA including all history, exam, and medical decision-making details. I have personally performed a physical exam and have personally reviewed the data to support my medical decision-making as outlined in their note. I agree with theirassessment and plan other than any corrections/additions as documented below. Corrections/Additions: Tolerated L shoulder drainage procedure with IR Permacath exchanged with Inv Neph No complaints to me, denies pain Consult WC RN for right heel, does not need MRI as lower concern for OM and would not private branch exchange service adviser Will discuss with ID Abx EOT dates and start dispo planning Date of Service: 02/25/2024 Kranthi Miles MD * Otis Merrill RN - 02/25/2024 6:13 AM CDT END OF SHIFT SUMMARY Issues/Changes: No acute events overnight. NPO. Pre procedural prep. Wound care to RLE & perineum. Patient or Family Concerns: No issues/concerns voiced overnight. Pain Issues: Medicated accordingly. Patient Progress: Voiding, no BM. Vitals stable, safety maintained. * Marvin Suarez RN - 02/24/2024 7:06 PM CDT 02/24/24 1833 Post Hemodialysis Patient Response to Treatment pt. had no problems during tx. Post Dialysis Patient Status Treatment Completed Ultrafiltration Amount (ml) 2000 Dialyzer Clearance Heavily streaked Amount of blood processed (Liters) 54.1 Post Hemodialysis Comment pt. stable-dressing changed * Lorena Choudhary LPN - 02/24/2024 5:36 PM CDT Problem: Hemodynamic Status/Cardiac Output Goal: Patient has stable vital signs and fluid balance Outcome: Progressing Problem: Fluid and Electrolyte Imbalance Goal: Fluid and electrolyte balance are achieved/maintained Outcome: Progressing Problem: Infection Goal: Signs and symptoms of infections are decreased or avoided Outcome: Progressing * Nadia Gomez DO - 02/24/2024 1:49 PM CDT [facility] Department of Nephrology Progress Note Date of Admission: 02/22/2024 Length of Stay: 2 Date of Service: 02/24/24 Patient Name: Gay Canales (33 year old female) Room Number: 108/01 PCP: CHERISE MARCELO PA-C ([phone]) No chief complaint on file. HISTORY: History was obtained from the patient and the medical chart. 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 Patient initially presented to OSH for dyspnea andher course was complicated by MSRA bacteremia, osteomyelitis/abscess in the left pectoralis muscle with other soft tissue abscess, pneumonia, and right shoulder septic arthritis. Patient is currentlyon cefepime and vancomycin. Orthopedic following and currently recommending medical management of her right shoulder abscess. For her left, they recommend IR guided drainage with MSK IR. ?? For her renal care, she has been on dialysis for the past 4 months. She was previously admitted to the hospital in 04/2023 where she was found to have BOBBY on CKD which was the possible inciting factorthat caused her to progress to ESRD. She continues to make urine and states she gets dialysis about3 hours. She is TTS, with her last session 02/21/2024. Interval History: No acute events overnight. Orthopedic following and recommended IR guided drainage of the abscess in her left shoulder. Scheduled Medications: ??? 0.9% NaCl 3 mL Intracatheter q8h ??? acetaminophen 500 mg Oral q4h ??? amLODIPine 10 mg Oral QDAY ??? carvedilol 12.5 mg Oral BID WC ??? gabapentin 100 mg Oral TID ??? heparin 5,000 Units Subcutaneous q8h ??? insulin aspart 0-12 Units Subcutaneous q6h ??? lidocaine 1 patch Transdermal q24h ??? lisinopril 20 mg Oral QDAY ??? renal vitamin 1 tablet Oral QDAY ??? sevelamer carbonate 800 mg Oral TID WC ??? vancomycin 1,000 mg Intravenous Once ??? vancomycin (VANCOCIN) IV dose per pharmacy Does not apply DIRECTED PRN Medications: ??? SALINE LOCK, INSERT AND MAINTAIN AND 0.9% NaCl AND 0.9% NaCl ??? dextrose IV for hypoglycemia OR dextrose IV for hypoglycemia OR glucagon ??? glucose (Diabetic Use) gel ??? heparin ??? melatonin ??? oxyCODONE (immediate release) OR oxyCODONE (immediate release) Infusions: OBJECTIVE: Vital Signs: Temp: [97.6 ??F (36.4 ??C)-99.2 ??F (37.3 ??C)] 97.6 ??F (36.4 ??C) Pulse: [66-84] 68 Resp: [16-18] 18 BP: (103-158)/(65-83) 113/72 Intake/Output: Intake/Output Summary (Last 24 hours) at 02/24/2024 1350 Last data filed at 02/24/2024 0800 Gross per 24 hour Intake 500 ml Output 1600 ml Net -1100 ml Physical Exam Constitutional: General: She is not in acute distress. HENT: Head: Normocephalic and atraumatic. Eyes: General: No scleral icterus. Comments: Erythematous sclera - Lt Cardiovascular: Rate and Rhythm: Normal rate. Pulmonary: Effort: Pulmonary effort is normal. No respiratory distress. Abdominal: General: There is no distension. Tenderness: There is no abdominal tenderness. Musculoskeletal: Right lower leg: No edema. Comments: L AKA Neurological: General: No focal deficit present. Mental Status: She is oriented to person, place, and time. Psychiatric: Mood and Affect: Mood normal. Thought Content: Thought content normal. Access: R-IJ Permcath Labs: CBC: Recent Labs Component Name 02/24/24 0130 02/23/24 0737 02/22/24 2214 WBC 15.5* 16.8* 18.0* RBC 3.19* 3.20* 3.23* HGB 9.4* 9.7* 9.6* HCT 30.6* 30.4* 30.5* RFP: Recent Labs Component Name 02/24/24 0130 02/23/24 0737 02/22/24 2214 NA 135* 138 136 POTASSIUM 4.1 4.0 4.1 CL 100 102 100 CO2 24 26 26 BUN 28* 22 21 CREATININE 5.93* 5.35* 4.88* PHOS 6.3* 5.3* 5.0 CALCIUM 8.5 8.5 8.8 ASSESSMENT ?? 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 Nephrology consulted for continued HD management. ?? PLAN ESKD w/ HD TTS - Access: R-IJ Permcath - Electrolytes: K - 4.1 - Acid Base: CO2 - 24 - Volume Status: Euvolemic - strict intake and output - Blood cultures negative since 02/21 - Annual UPPER DOUBLER consent placed in HD unit - Consent obtained for PermCath exchange please see media tab --- Plan for iHD today --- Will plan for exchange sometime this week, hopefully tomorrow --- Patient will need to be NPO after midnight. Hypertension - BP today is 113/72 - Home regimen: Amlodipine 10 mg, Bumex 1 mg daily, Coreg 12.5 mg twice daily, lisinopril 20 mg daily, - Inpt regimen: Amlodipine 10mg, Coreg 12.5mg, lisinopril 20mg, - continue current inpatient regimen Anemia - Hgb - 9.4 - may be secondary to anemia of chronic disease secondary to ESKD - transfuse pRBCs for Hgb<7 Bone Mineral Disease - Ca - 8.5, Phos 6.3 - Albumin - 1.5 ---Continue sevelamer 800mg TID AC Patient seen and discussed with attending physician, Dr. Stein. Nadia Gomez DO Nephrology Fellow, PGY-4 02/24/2024 1:50 PM * Lorena Choudhary LPN - 02/24/2024 12:09 PM CDT Reason for admission: SEPTIC ARTHRITIC SHOULDER Isolation: Y Code Status: FULL Orientation Status: X4 On telemetry/Rhythm: N Oxygen: N Given any medications: OXY, TYLENOL Blood Pressure issues: N On any drips: N Is patient diabetic: Y Any labs to draw: N Any other procedures today: CT Any concerns about this patient: Any medications to be given with dialysis: Report from: Leila Rai RN Phone number: [phone] * Khloe Lowery - 02/24/2024 10:58 AM CDT I am aware of this patient's admission, I will be following this dialysis patient for any needs while an inpatient, and keeping their clinic informed of their progress while admitted. Records were forwarded to the clinic for their review. Meet with patient in patient's room patient confirmed her OPHD schedule and voiced no concerns with clinic. Documented acknowledgement of choice: Yes, verbal consent due to contact precautions. Spoke with staff at [facility] and they were able to confirm patient's OP HD Outpatient Clinic [facility] Days: TTS Time: 11:30am Doctor: Dr Mcneal Khloe Lowery Kidney Navigator/ [facility] Ascom: [phone] Office: [phone] * Leila Wang RN - 02/24/2024 10:53 AM CDT Problem: Pain/Discomfort Goal: Patient exhibits reduced pain/discomfort as evidenced by pain scores Outcome: Adequate for Discharge Goal: Patient uses pharmacological and non-pharmacological pain management strategies. Outcome: Adequate for Discharge Goal: Patient verbalizes acceptable level of pain relief and ability to engage in desired activity. Outcome: Adequate for Discharge Problem: Fall Risk Goal: Fall risk and fall related injury risk are minimized (interventions related to the fall risk can be found in the flowsheet documentation) Outcome: Adequate for Discharge Problem: Skin Integrity Goal: Skin integrity is maintained or improved Outcome: Adequate for Discharge Problem: Nutrient: Increased nutrient needs (specify) Goal: Total intake will meet estimated nutrient needs Outcome: Adequate for Discharge * Valeria Guillory - 02/24/2024 9:26 AM CDT [facility] Infectious Diseases Progress Note Date of Admission: 02/22/2024 8:14 PM Length of Stay: Day 2 Room: 108/ Attending: Kranthi Miles MD HPI Kiara L Wright??is a 33 year old??female??with a PMH significant for T2DM, ESRD (on HD??TTS via R chest catheter), HTN, recently diagnosed sickle cell (trait vs dz unclear), CHF, L foot??nec fasc??s/p L AKA, who??initially??presented to??OSH??on 02/21 for generalized muscle weakness and overall fatigue.??Pt also reported 4wks of bilateral shoulder pain. ?? At OSH, found to have MRSA bacteremia (02/15 cx),??PNA, and??L pectoralis major and multiple other soft tissue abscesses on CT chest, and R shoulder septic arthritis??on XR.??Completion imaging with CT and MRI of??L??shoulder demonstrated??subacromial/subdeltoid bursitis/abscess with involvement of muscle and osteomyelitis.??Pt was initially started on vanc/johnny/cefe, then vanc/johnny, then transitioned to vanc/cefe on 02/17 at OSH. High concern for seeding and possible endocarditis given multiple areas of infection noted; no vegetations on TTE. Transferred to [facility] on 02/21 d/t OSH ortho unable to intervene given comorbidities. ?? On admission to [facility], labs s/f leukocytosis (WBC 18>16.8), lactic wnl (1.3), elevated CRP of 8.3,elevated ESR 116, elevated eosinophils (10.7%). UA s/f 3+ LE, >100 WBC, 11-20 squams, trace bacteria, occasional yeast budding, among other findings. On vanc and cefe empirically.??Ortho performedR shoulder aspiration (5cc) which demonstrated 4376 PMN w/ 94% neutrophils; not concerning for septic R shoulder; pending cultures. ACS and ortho recommending IR drainage of L shoulder abscesses. Perortho note, no additional procedures. Infectious w/u so far: 02/21 blood cx pending; 02/21 R shouldersynovial fluid bacterial, anaerobe, AFB, fungal, GC cx pending. MRSA swab positive. GC urine screenpending collection. ?? Relevant PMH:?? - Hx of Schaalia turicensis bacteremia in Nov 2022 - Hx of staph epi bacteremia in May 2023 - Has R heel ulcer for the past 5mo (denies tenderness, change in appearance/drainage) Interval Since last seen by us, pt denies SOB, chest pain, cough/sputum production, fever, chills, abd pain.Pt in discomfort from bilateral shoulder soreness (R worse than L); shoulders appear non-erythematous, not warm. No questions/concerns this morning. Pt scheduled for HD today. Antimicrobial History Current Antibiotics Cefepime (02/17-present) - will stop today Vanc (02/17-present) ?? Prior Antibiotics At [facility] ? Prior Antibiotics at OSH Vancomycin Cefepime Meropenem Inpatient Medications ??? 0.9% NaCl 3 mL Intracatheter q8h ??? acetaminophen 500 mg Oral q4h ??? amLODIPine 10 mg Oral QDAY ??? carvedilol 12.5 mg Oral BID WC ??? gabapentin 100 mg Oral TID ??? heparin 5,000 Units Subcutaneous q8h ??? insulin aspart 0-12 Units Subcutaneous q6h ??? lidocaine 1 patch Transdermal q24h ??? lisinopril 20 mg Oral QDAY ??? renal vitamin 1 tablet Oral QDAY ??? sevelamer carbonate 800 mg Oral TID WC ??? vancomycin 1,000 mg Intravenous Once ??? 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 Blurry vision in R eye 2/2 cataracts Cardiovascular: Rate and Rhythm: Normal rate and regular rhythm. Pulmonary: Effort: No respiratory distress. Breath sounds: No wheezing or rales. Abdominal: General: There is no distension. Palpations: Abdomen is soft. Tenderness: There is no abdominal tenderness. Musculoskeletal: Right lower leg: No edema. Comments: L AKA; no drainage from stump. Bilateral shoulder tenderness. No erythema, edema, fluctuance of bilateral shoulders. Skin: Comments: R heel ulcer (5mo) Lines: PIV, R chest HD catheter (4mo), ext cath, R heel ulcer Lab Review CBC: Recent Labs Component Name 02/24/24 0130 02/23/24 0737 02/22/242213 WBC 15.5* 16.8* 18.0* RBC 3.19* 3.20* 3.23* HGB 9.4* 9.7* 9.6* HCT 30.6* 30.4* 30.5* MCV 95.9 95.0 94.4 BMP: Recent Labs Component Name 02/24/24 0130 02/23/24 0737 02/22/24 2214 06/10/23 0939 05/22/23 0521 NA 135* 138 136 143 143 CL 100 102 100 110* 110* CO2 24 26 26 25 26 BUN 28* 22 21 8 10 CREATININE 5.93* 5.35* 4.88* 1.96* 1.52* ALB - - 1.5* 1.5* 1.4* PROT - - 8.1 5.8* 5.3* CrCl cannot be calculated (Unknown ideal weight.). LFTs: Recent Labs Component Name 02/22/24221306/10/23 0939 05/22/23 0521 12/02/22 1955 08/25/22 0315 08/24/22 1404 08/24/22 0725 ALKPHOS 221* 139 143 - - - - ALT 11 8 5 - - - - AST 7 12 9 - - - - ALBUMIN - - - - 2.0* 2.1* 1.7* - = values in this interval not displayed. Coagulation: Recent Labs Component Name 02/22/24221304/26/23 0629 PT 14.6 16.3* INR 1.2 1.3 PTT - 29.8 Microbiology, Imaging and other diagnostic tests MICROBIOLOGY: Blood culture: 02/15 blood cx at OSH: MRSA 02/21 blood cx: NGTD at 24h ?? Urine culture: ?? Sputum culture: ?? Wound culture: ?? Other serologies: 02/21 MRSA swab positive 02/21 R shoulder synovial fluid bacterial, anaerobe, AFB, fungal, GC cx: pending GC urine screen: pending collection L shoulder abscess drainage cultures: pending collection HISTOPATHOLOGY: None at this admission IMAGING & PROCEDURES: I have independently reviewed all pertinent imaging data. Reports available in EMR. 02/22 R FOOT XR Ulceration in the right heel with adjacent soft tissue swelling. Sclerosis in the right calcaneus is nonspecific. Osteomyelitis is not excluded. MRI would better assess. > Interpreting Provider: Kavita Borrero MD on 02/24/2024 2:33 PM XR SHOULDER LEFT 2VW OR MORE ?? Result Date: 02/23/2024 IMPRESSION: No acute fracture or dislocation of the left shoulder is identified. No evidence of abnormal intra-articular or periarticular soft tissue gas collection. > Dictated by Jean-Claude Sanchez MD (residential mortgage manager). I, Jed Dale MD have personally reviewed and interpreted this examination/study. > Interpreting Provider: Jed Dale MD on 02/23/2024 10:25 AM ?? XR SHOULDER RIGHT 2VW OR MORE ?? Result Date: 02/23/2024 IMPRESSION: 1. No acute osseous abnormality. 2. Several foci of soft tissue gas are suggested around the shoulder, potentially reflecting infection or postprocedural gas. > Interpreting Provider: Xander De Guzman MD on 02/23/2024 10:18 AM ?? XR CHEST Result Date: 02/23/2024 FINDINGS/IMPRESSION: Interval placement of a right IJ approach central venous access catheter whichterminates in the right atrium. There is no pulmonary consolidation, pleural effusion, or pneumothorax. The heart size is normal. ?? Assessment and Recommendations Gay Canales is a 33 year old female with a past medical history significant for T2DM, ESRD (on HD??TTS via R chest catheter), HTN, CHF, L foot??nec fasc??s/p L AKA, who??presented as a direct transfer from OSH. Currently being managed for MRSA bacteremia, L shoulder abscesses and r/o septic R shoulder. ?? # MRSA bacteremia # R heel ulcer 02/15 blood cultures at OSH were positive for MRSA. TTE at OSH did not show vegetations; MATT not done. Ddx for source of infection: R heel ulcer (unlikely; present for the past 5mo; s/p debridement months ago; no drainage; R foot XR w/ adjacent soft tissue swelling and non-specific sclerosis; osteo not ruled out, but we do not recommend MRI d/t low suspicion for osteo) vs R chest HD catheter (present for the past 4mo) vs L AKA wound (unlikely; appears dry, non- erythematous, non-edematous) vs other Plan: - Continue vancomycin for MRSA coverage - F/u 02/21 blood cultures - Consider MATT if 02/21 blood cultures are positive for MRSA - Consider HD catheter removal after HD today - Per nephro note, they are waiting for negative cultures to remove the catheter, however, waiting may not be necessary since there is still concern for seeding # r/o R shoulder septic arthritis Hx s/f bilateral shoulder pain x4wks. No hx of trauma to this shoulder. On exam, R shoulder appearsnon-erythematous and without fluctuations; mildly tender. Labs s/f leukocytosis, elevated ESR/CRP. Imaging w/ R shoulder XR demonstrated erosions of distal right clavicle suspicious for septic arthritis, and soft tissue gas posterior to the right humeral head, consistent with infection. Pt is now s/p R shoulder aspiration (5cc) w/ ortho; analysis demonstrated 4376 PMNs w/ 94% neutrophils; not concerning for septic R shoulder; pending cultures. ?? Plan: - Adjust abx as needed once aspiration cx finalizes - F/u shoulder aspiration culture # L shoulder soft tissue abscesses (L pec major, bursitis) Hx s/f bilateral shoulder pain x4wks. On exam, L shoulder appears non- erythematous and without fluctuations; mildly tender. Labs s/f leukocytosis, elevated ESR/CRP. Completion imaging at OSH with CT and MRI of left shoulder was reviewed by ACS at [facility]; demonstrates severe infectious subacromial/subdeltoid bursitis (abscess) with extension of an abscess into teres minor muscle belly, osteomyelitis involving acromion and humeral head, and worsened visualized abscess and myositis involving left pectoralis major muscle.??ACS was initially consulted for drainage, but recommend IR or ortho consult d/t involvement of tendons, muscles, bones/joint. ?? Plan: - F/u L shoulder abscess culture after IR drainage - Please obtain bacterial culture & Gram stain, anaerobe culture, AFB culture and fungal cultures from abscess - Stop cefepime - Continue vanc for MRSA coverage; adjust as needed once abscess cx finalizes - Check CBC with auto diff and CMP weekly while on IV antibiotics ?? # r/o PNA Hx s/f PNA concerns at OSH, however, pt denies all respiratory sx (denies SOB, cough, sputum production). On exam, lungs are clear. Labs s/f MRSA on nasal swab. Imaging at [facility] w/ CXR does not demonstrate consolidations nor effusions. ?? Plan: - No treatment indicated Screening 04/27/23 Hep C Ab NR. 04/27/23 and 02/24/24 HIV NR. Allergies No Known Allergies Renal Function CrCl cannot be calculated (Unknown ideal weight.). Hardware R chest dialysis catheter QTc 05/17/23 EKG: QTc 452 Thank you for allowing us to participate in the care of this patient. We will continue to follow and monitor with you closely. Patient seen, examined, and case/plan were discussed with my attending physician, Dr. Lackey. Case discussed with primary team. Valeria Guillory, MS4 [facility] [employer] ID Clinic ID Clinic Associated attestation - Woo Lackey MD - 02/24/2024 4:51 PM CDT I have reviewed the record and independently examined the patient. I agree with the findings and plan of care as documented by the medical student. Gay Canales is a 33 year old female with PMH of HTN, sickle cell, ESRD on HD, L-foot gangrene s/p L-AKA transferred from OSH on 02/21 for MRSA bacteremia, L- pectoralis muscle abscess/osteomyelitis, R-shoulder septic arthritis and concern for endocarditis. TTE at OSH showed no vegetation. R-shoulder aspiration had 4300 WBC (not suggestive of septicarthritis). Assessment and Recommendations 1. MRSA bacteremia with L-pectoralis abscess with concern for osteomyelitis. HD catheter, PNA, L-pectoralis abscess possible sources. On vanc. Follow up blood cultures (02/21) negative to date. - Continue vanc - If L-pectoralis abscess is drained, please send sample for gram stain and culture 2. R-heel wound. Appears superficial. Woo Lackey MD, PhD * Israel Gordon DO - 02/24/2024 7:22 AM CDT [facility] INTERNAL MEDICINE PROGRESS NOTE Patient: Gay Canales Sex: female Age: [age] year old Date of : 1990 Date of Admission: 02/22/2024 Date: 02/24/2024 LOS: 2 SUBJECTIVE Interval History: Plan is for IR to drain L shoulder bursitis/abscess. Will plan for HD today. Bcx remain negative. 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 Patient initially presented to OSH for SOB and fevers. Found to have PNA and started on meropenem/vancomycin. Bcx from 02/15 were pos for staph aureas and TTE was done w/o evidence of vegetation. ID was consulted and patient transitioned to vanc/cefe. Due to multiple co morbidities patient was transferred to [facility] for orthopedic evaluation. Upon arrival patient HDS. Labs significant for WBC 13, Hgb 9.6. Bcx were drawn. Patient continued on vanc/cefe. Orthopedic surgery consulted and performed R shoulder aspiration showing 4376 PMN w/ 94% neutrophils. ACS consulted for potential L shoulder abscess drainage. OBJECTIVE Vital Signs: Vitals: 02/23/24199902/23/24 2050 02/24/24 0011 02/24/24 0407 BP: 122/73 120/72 113/67 Pulse: 80 84 75 Resp: 16 16 18 Temp: 99.2 ??F (37.3 ??C) 98.5 ??F (36.9 ??C) SpO2: 96% 97% 97% 94% Temp Min: 98.2 ??F (36.8 ??C) Max: 99.2 ??F (37.3 ??C), Pulse Min: 75 Max: 85, Resp Min: 16 Max: 18, BP Min: 113/67 Max: 158/83 Intake & Output: In: 500 [P.O.:500] Out: 2000 [Urine:2000] Physical Exam: Physical Exam Constitutional: General: She is not in acute distress. HENT: Head: Normocephalic and atraumatic. Eyes: General: No scleral icterus. Extraocular Movements: Extraocular movements intact. Pupils: Pupils are equal, round, and reactive to light. Cardiovascular: Rate and Rhythm: Normal rate and regular rhythm. Pulses: Normal pulses. Heart sounds: No murmur heard. No gallop. Pulmonary: Effort: Pulmonary effort is normal. No respiratory distress. Breath sounds: No wheezing or rales. Abdominal: General: Bowel sounds are normal. There is no distension. Palpations: Abdomen is soft. Tenderness: There is no abdominal tenderness. Musculoskeletal: General: No swelling. Comments: L AKA B/l Shoulder joints w/ TTP Skin: Capillary Refill: Capillary refill takes less than 2 seconds. Coloration: Skin is not jaundiced. Comments: R chest HD line Neurological: General: No focal deficit present. Mental Status: She is alert and oriented to person, place, and time. Cranial Nerves: No cranial nerve deficit. Current Medications: Scheduled: ??? 0.9% NaCl 3 mL Intracatheter q8h ??? acetaminophen 500 mg Oral q4h ??? amLODIPine 10 mg Oral QDAY ??? carvedilol 12.5 mg Oral BID WC ??? cefepime 1 g Intravenous q24h ??? gabapentin 100 mg Oral TID ??? heparin 5,000 Units Subcutaneous q8h ??? insulin aspart 0-12 Units Subcutaneous q6h ??? lidocaine 1 patch Transdermal q24h ??? lisinopril 20 mg Oral QDAY ??? renal vitamin 1 tablet Oral QDAY ??? sevelamer carbonate 800 mg Oral TID WC ??? vancomycin 1,000 mg Intravenous Once ??? vancomycin (VANCOCIN) IV dose per pharmacy Does not apply DIRECTED Continuous: PRN: ??? SALINE LOCK, INSERT AND MAINTAIN AND 0.9% NaCl AND 0.9% NaCl ??? dextrose IV for hypoglycemia OR dextrose IV for hypoglycemia OR glucagon ??? glucose (Diabetic Use) gel ??? heparin ??? melatonin ??? 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, with long-term current use of insulin (HCC) (POA: Yes) Insomnia (POA: Yes) Shoulder abscess (POA: Yes) Leukocytosis (POA: Yes) #R Shoulder Septic Arthritis #L Soft tissue Abscess - Unclear Source - OSH did TTE without vegetations - s/ aspiration of R shoulder joint -PMN 4376, 94% neutrophils -Culture w/ NGTD - ACS consulted for L shoulder abscess, recommending discussion w/ orthopedic surgery PLAN - On Vanc/Cefepime, deescalate as appropriate - orthopedic surgery consulted, appreciate rec's - IR consulted for drainage of L shoulder abscess/bursitis - Lidocaine patch - Pain control: tylenol 500 q4h, oxy 5/10 PRN ?? #Concern for BL PNA from OSH - CXR pending - MRSA Nares Positive #Staph Bacteremia #Leukocytosis - Bcx pos at OSH 02/15 - Repeat cultures were done 02/17 - Originally on johnny/cefe/vanc on 02/15 --> Johnny/vanc. Transitioned to cefe/vanc 02/17 - TTE w/o vegetation at OSH - Has chest port for HD - Bcx NGTD PLAN - ID consulted appreciate rec's - Cont cefe/vanc - Repeat Cx pending, if cultures continue to be positive may need repeat TTE vs MATT or consideration of chest port removal - Repeat UA ordered due to squam cells on previous ?? #ESRD T//Sat - Nephro consulted for dialysis -Access: Chest port - Per patient, never had kidney biopsy or was told why she was ESRD, if upon review does not have any biopsy or further workups, may be beneficial for outpatient f/u and/or biopsy to assess cause ?? #HTN - Continue home Lisinopril 10mg, Coreg 12.5mg and Amlodipine 10mg ?? #T2DM - SSI w/ accuchecks - Cont home Gabapentin 100 TID - Not on basal insulin at home, stated she uses Insulin PRN for BG over 200 ?? #Right Heel Ulcer - Wound Care Consult ?? #Insonmia - Melatonin 3mg ?? #?Sickle Cell #Anemia - Patient stated she was diagnosed at [facility], unclear if it was sickle cell trait vs disease - Will likely need further investigation, likely o/p heme/onc referral Code: FULL Diet: Diabetic/renal Electrolytes: Replete PRN PPx: Heparin Access: PIV, HD line Dispo: Pending further eval The above assessment and plan will be discussed with the attending. This note is not final until attested by attending physician. Israel Gordon DO Internal Medicine Resident [facility] 02/24/2024 7:22 AM Associated attestation - Kranthi Miles MD - 02/24/2024 8:27 PM CDT I have verified the documentation of the acting international sourcing manager/resident/DAYA including all history, exam, and medical decision-making details. I have personally performed a physical exam and have personally reviewed the data to support my medical decision-making as outlined in their note. I agree with theirassessment and plan other than any corrections/additions as documented below. Corrections/Additions: - None Date of Service: 02/24/2024 Kranthi Miles MD * Otis Merrill, JIMMIE - 02/24/2024 6:51 AM CDT END OF SHIFT SUMMARY Issues/Changes: No acute events overnight. Wound care to RLE & perineum. Patient or Family Concerns: No issues/concerns voiced overnight. Pain Issues: Medicated accordingly. Patient Progress: Voiding, no BM. Vitals stable, safety maintained. * Mark Chinchilla MD - 02/24/2024 4:53 AM CDT Orthopaedic Trauma Surgery Daily Progress Note Name: Gay Canales Age: [age] year old Room: 108/01 Date Admitted: 02/22/2024 Interval History: Patient seen and examined on rounds this AM. No acute events overnight. Pain is controlled. No new numbness or tingling. Labs CBC Recent Labs Component Name 02/24/24 0130 02/23/24 0737 02/22/242213 WBC 15.5* 16.8* 18.0* HGB 9.4* 9.7* 9.6* HCT 30.6* 30.4* 30.5* PLTCOUNT 490* 422* 485* BMP Recent Labs Component Name 02/24/24 0130 02/23/24 0737 02/22/24 221 NA 135* 138 136 POTASSIUM 4.1 4.0 4.1 CL 100 102 100 CO2 24 26 26 BUN 28* 22 21 CREATININE 5.93* 5.35* 4.88* GLUCOSE 223* 128* 261* CALCIUM 8.5 8.5 8.8 MAGNESIUM 2.2 2.2 2.2 PHOS 6.3* 5.3* 5.0 Coags Recent Labs Component Name 02/22/24 2214 04/26/23 0629 PT 14.6 16.3* INR 1.2 1.3 PTT - 29.8 Vitamin D No results for input(s): IMHC45IO in the last 70909 hours. Vitals BP 113/67 Pulse 75 Temp 98.5 ??F (36.9 ??C) Resp 18 SpO2 94% Temp (24hrs), Av.6 ??F (37??C), Min:98.2 ??F (36.8 ??C), Max:99.2 ??F (37.3 ??C) Physical Exam General appearance: Alert, cooperative, and no apparent distress Right upper extremity: Fires motor R/M/U/AIN/PIN, Sensation intact in R/M/U nerve distributions distally, extreme pain with manipulation of the shoulder, extremity warm and well perfused. Left upper extremity: Fires motor R/M/U/AIN/PIN, Sensation intact in R/M/U nerve distributions distally, able to actively flex/abduct the arm to 90 degrees with mild pain, extremity warm and well perfused. Assessment and Plan: Gya Canales is a 33 year old female with concern for right shoulder septic arthritis in the setting of MRSA bacteremia s/p right shoulder aspiration with 4K cells. Also, there are periarticular abscesses surrounding the L shoulder seen on MRI of the L shoulder. Plan: 1. Weight bearing status: ? BUE: WBAT 2. No further orthopaedic intervention needed at this time. 3. Recommend antibiotics and medical management, will follow culture results from R shoulder aspiration 4. Given abscesses do not directly involve the joint, we recommend IR guided drainage of left periarticular abscesses with [facility] interventional radiology. 5. Diet: OK from ortho perspective 6. PT/OT 7. Current Dispo: no further orthopaedic intervention necessary Daily Reminders: 8. Pain control per primary ? Recommend avoiding NSAIDs during the first 3 weeks after injury and surgery due to risk of delayed healing 9. DVT Prophylaxis: ? In hospital: Per primary, OK from Ortho perspective 10. Bone health: Please check vitamin D level for all fracture patients ? If low, please give Vit D3 5000IU daily x 30 days followed by Vit D3 1000IU daily ? If normal, give Vit D3 1000IU daily 11. For questions, please contact Ortho Trauma APPs at [phone] or send epic chat to DAYA. For urgent questions, please page Ortho Trauma service pager at [phone] or through AMION. Mark Chinchilla MD 02/24/2024 4:53 AM * Jordyn Mcguire RN - 02/23/2024 2:20 PM CDT Care Coordination Initial Assessment Anticipated Discharge Date: 02/26/24 Transportation at Discharge: Ambulance Anticipated level of care at discharge: Other Comment: Back to [facility] Anticipated level of care provider: None Prior to admission level of care: Other Comment: [facility] Prior to admit provider: None Patient Goals: home or back to [facility] Plans: No discharge needs identified at this time. Consult Case Management if discharge planning needs arise. Comments: Patient admitted for MATT. Patient came from [facility] when she was receiving therapy for a new prosthetic leg. Per patient and her mother, she willbe returning to [facility] at discharge. Lives with: Mother Physical Limitations: Wheelchair Bound (has a new prostheic leg) Requires Assistance With: Mobility;Housekeeping;Meal Preparation;Medication Administration;Shopping Preferred Pharmacy: [facility] [phone] [facility] [phone] [facility] [id number] Advance Directive: No Advance Directive Information Given: Refused Information Would you like assistance on completing and executing or revising an Advance Directive?: No READMISSION RISK SCORE is 20 at 2:20 PM 02/23/2024. Met with patient Family Support (name and phone): Extended Emergency Contact Information Primary Emergency Contact: Silvia Resendiz Mobile Relation: Mother School Lunch Monitor needed? No Secondary Emergency Contact: GAYE BEAL Mobile Relation: Sister School Lunch Monitor needed? No Patient or transportation services representative requests care coordination reach out to family or caregiver listed above regarding discharge planning and at time of discharge? No Patient/Family provided with list of resources? Unknown Preferred Provider / High Quality Network List given?: Unknown Reason for provider choice: Unknown Equipment at Home: Wheelchair-Standard;Walker-2 Wheeled;Chair-Shower;Commode-Bedside List DME pt. requires but does not have.: None [employer] Referral: Yes Will continue to follow. For any questions or needs please contact: Name/Phone number: Jordyn Mcguire civil engineering designer #[phone] * Carolina Roa, PharmD - 02/23/2024 1:31 PM CDT ACTIVE CONSULTS TO PHARMACY/DISEASE STATE MONITORING Pharmacy Consult: Vancomycin ASSESSMENT/PLAN Indication: documented MRSA Bacteremia with Goal Level: 15-20 mcg/ml ID consulted/following: Yes At OSH, found to have MRSA bacteremia (02/15 cx), PNA, and L pectoralis major and multiple other soft tissue abscesses on CT chest, and R shoulder septic arthritis on XR. Completion imaging with CT and MRI of L shoulder demonstrated subacromial/subdeltoid bursitis/abscess with involvement of muscle and osteomyelitis. TTE showed no vegetations. Transferred to [facility] on 02/21 d/t OSH ortho unable to intervene given comorbidities. Assessment: ?? Day of treatment: 8 (started 02/15 at OSH) ?? End of treatment date: to be determined ?? Current dosing regimen: iHD - Intermittent dosing based on levels Recent Labs Component Name 02/23/24 0737 02/22/24 2214 06/10/23 0939 05/22/23 0521 05/21/23 0450 05/20/23 0918 05/19/23 0638 05/18/23 0617 05/17/23 2151 05/09/23 0357 05/08/23 0841 05/07/23 0616 05/06/23 0413 04/29/23 0338 06/31804/27/232018 CREATININE 5.35* 4.88* 1.96* 1.52* 1.62* - - 1.71* - 1.83* - - 1.75* - 1.39* - BUN 22 21 8 10 13 - - 16 - 17 - - 15 - 13 - VANCORNDM 21.5 - - - - - - 11.0 - - - - 17.1 - - - VANCTROUGH - - - - 15.5 - - - - 19.5 - - - - 34.6* - VANCOPEAK - - - - - 20.1* - - - - 26.1 - - - - 46.6* - = values in this interval not displayed. ?? Microbiology: Recent Labs Component Name 02/22/24 7459 MRSADPCR Detected* ?? MRSA positive: Yes - 02/15 blood cx from OSH ?? Other pertinent micro: 02/21 blood cx in process ?? Renal: ?? Considered difficult to accurately assess at this time as patient is on intermittent hemodialysis (iHD) with last session 02/20 and next planned 02/23 per IM resident. ?? Level(s): ?? See chart above ? Patient is on iHD with expected clearance of 20-30% per iHD session, the level reported above is expected to be within the therapeutic range ? Level on 02/22 to be considered the pre-HD level for 02/23 HD session. Plan ? Dosing: o Will continue serial dosing based on scheduled dialysis sessions with next session expected to beon 02/23. Will order dose of 1000 mg to be given on 02/23 at 1800. ? Monitoring o Will order a vancomycin random level prior to iHD session on 02/25 at 0400 and adjust regimen if indicated. Continue to monitor HD schedule, currently //Sat. Nephro following. o Continue to monitor patient???s renal function and cultures as needed. Carolina Roa, PharmD 02/23/2024 1:07 PM [facility] [employer] Vancomycin Guideline SUBJECTIVE/OBJECTIVE Gay Canales is a 33 year old female. Wt There is no height or weight on file to calculate BMI. Vancomycin Administrations from JAN (last 72 hours) None * Ritesh Butler, PharmD - 02/23/2024 1:11 PM CDT [facility] Renal Dose Adjustment Policy S/O Gay Canales female, is 33 year old Wt There is no height or weight on file to calculate BMI. Recent Labs Component Name 02/23/24 0737 02/22/24 2214 06/10/23 0939 CREATININE 5.35* 4.88* 1.96* BUN 8 Patient is on hemodialysis.(T//S IHD per IM team) Plan Based on renal function and IHD status ; I have changed the following orders per P&T Policy : Cefepime 2 g IV q8h was changed to cefpime cefepime 1 g IV q24h as the patient is being treated forthe indication of bacteremia. Ritesh Butler PharmD. 02/23/2024 9:56 AM * Thor Hu MD - 02/23/2024 12:28 PM CDT ACS was consulted on 02/21 for abscess of the left shoulder. Patient seen again this morning and all imaging were reviewed. MRI notable for left severe infectious subacromial/subdeltoid bursitis (abscess) with extension of an abscess into teres minor muscle belly, osteomyelitis involving acromion and humeral head, and worsened visualized abscess and myositisinvolving left pectoralis major muscle. Given that abscess are involving bursa, extending to the tendons, muscles, joints and bones, ACS will defer management to other specialties. ACS to sign off Chief: MD Thor Hutchison MD * Masha Finley RN - 02/23/2024 11:30 AM CDT WOUND OSTOMY NURSE CONSULT NOTE Gay Canales is an 33 year old femalewho has right heel (neuropathic ulcer . This consultation was requested by MD Carla. History Social History Substance and Sexual Activity [...] Prior to Admission Medication Sig Dispense Refill Alcohol Swabs (Alcohol Prep) 70 % USE ONE SWAB TO CLEAN SKIN FOUR TIMES DAILY BEFORE TESTING 100 Each PRN apixaban (Eliquis) 5 MG tablet Take 2 (two) tablets by mouth 2 times daily for 2 days 0 apixaban (Eliquis) 5 MG tablet Take 1 (one) tablet by mouth 2 times daily for 90 days 0 blood glucose ([place] REITTouch Verio) test strip USE ONE STRIP TO TEST BLOOD SUGAR FOUR TIMES DAILY 100 strip PRN Blood Glucose Monitoring Suppl (Discount Ramps Verio Reflect) w/Device KIT Use 1 kit [...] subcutaneously 3 times daily with meals Lancets (FlightStatsTOUCH DELICA PLUS 33G EXTRA FINE LANCET) USE ONE LANCET TO PRICK FINGER FOUR TIMES DAILY FOR BLOOD GLUCOSE TESTING 100 Each PRN lisinopril (Prinivil; Zestril) 10 MG tablet Take 1 (one) tablet by mouth once daily melatonin 3 MG tablet Take 1 (one) tablet by mouth nightly as needed for Insomnia nystatin (Mycostatin) 687897 UNIT/GM powder Apply to affected area 3 times daily potassium chloride ER (Klor-Con M) 20 MEQ tablet Take 1 (one) tablet by mouth daily with breakfast Data Review: Chemistry: Lab results smartLinks are not currently available CBC: Lab results smartLinks are not currently available Assessment Vitals: 02/22/24 2018 02/22/24 2322 02/23/24 0503 02/23/24 0824 BP: 138/75 136/78 151/78 Pulse: 82 85 81 80 Resp: 18 16 18 Temp: 98.5 ??F (36.9 ??C) 98.3 ??F (36.8 ??C) 98.2 ??F (36.8 ??C) SpO2: 97% 98% 95% 93% Pt seen at the bedside, macerated wound edges that are rolled. Wound is approx 4 X 4 X 1.1cm. Pt with left AKA. 02/23/24 1130 Other Wound Plantar;Right No Date or Time found. Present on admission?: Yes Orientation: Plantar;Right Wound Bed Assessment Slough;Pale/Non-granular Wound Margin Undefined edges Nicole-wound Skin Assessment Callus;Maceration Exudate Description Moderate;Serous Pain Assessment Pain Location #1 Pain Scale/Observation: Numeric (0-10) Pain Rating Score #1: 10 Sedation Level #1: 1-Awake and alert Pain Location : Shoulder Pain Orientation: Left;Right Pain Quality: Aching;Constant Aggravating Factors: Nothing Relieved By: Medications Pain Intervention(s): Medication (see MAR) Behaviors/Assumed Pain Present : Calm Additional pain sites?: No Bhavin Score Bhavin Scale - Adult Sensory Perception: Slightly Limited Moisture: Occasionally Moist Activity: Chairfast Mobility: Slightly Limited Nutrition: Probably Inadequate Friction and Shear: Potential Problem Total Score: 15 Recommendations: M-W-F: Cleanse with VASHE soak (5 minutes with Vashe impregnated 4 X 4), scrub wound bed. Apply IODOSORB gel 2mm or nickel thickness to entire wound bed. Apply open fluffed gauze to fill in the space. Apply cover dressing. Apply heel offloading boot. Interdry AG to abdominal pannus. Antifungal barrier cream to areas affected by incontinence. Masha Finley RN * Israel Gordon, DO - 02/23/2024 8:41 AM CDT [facility] INTERNAL MEDICINE PROGRESS NOTE Patient: Gay Canales Sex: female Age: [age] year old Date of : 1990 Date of Admission: 02/22/2024 Date: 02/23/2024 LOS: 1 SUBJECTIVE Interval History: Patient had R shoulder aspiration w/ ortho yesterday. Endorses some continued pain but denies any fevers, chills. 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 Patient initially presented to OSH for SOB and fevers. Found to have PNA and started on meropenem/vancomycin. Bcx from 02/15 were pos for staph aureas and TTE was done w/o evidence of vegetation. ID was consulted and patient transitioned to vanc/cefe. Due to multiple co morbidities patient was transferred to [facility] for orthopedic evaluation. Upon arrival patient HDS. Labs significant for WBC 13, Hgb 9.6. Bcx were drawn. Patient continued on vanc/cefe. Orthopedic surgery consulted and performed R shoulder aspiration showing 4376 PMN w/ 94% neutrophils. ACS consulted for potential L shoulder abscess drainage. OBJECTIVE Vital Signs: Vitals: 02/22/24 2018 02/22/24 2322 02/23/24 0503 02/23/24 0824 BP: 138/75 136/78 151/78 Pulse: 82 85 81 80 Resp: 18 16 18 Temp: 98.5 ??F (36.9 ??C) 98.3 ??F (36.8 ??C) 98.2 ??F (36.8 ??C) SpO2: 97% 98% 95% 93% Temp Min: 98.2 ??F (36.8 ??C) Max: 98.5 ??F (36.9 ??C), Pulse Min: 80 Max: 85, Resp Min: 16 Max: 18, BP Min: 136/78 Max: 151/78 Intake & Output: In: - Out: 400 [Urine:400] Physical Exam: Physical Exam Constitutional: General: She is not in acute distress. HENT: Head: Normocephalic and atraumatic. Eyes: General: No scleral icterus. Extraocular Movements: Extraocular movements intact. Pupils: Pupils are equal, round, and reactive to light. Cardiovascular: Rate and Rhythm: Normal rate and regular rhythm. Pulses: Normal pulses. Heart sounds: No murmur heard. No gallop. Pulmonary: Effort: Pulmonary effort is normal. No respiratory distress. Breath sounds: No wheezing or rales. Abdominal: General: Bowel sounds are normal. There is no distension. Palpations: Abdomen is soft. Tenderness: There is no abdominal tenderness. Musculoskeletal: General: No swelling. Comments: L AKA B/l Shoulder joints w/ TTP Skin: Capillary Refill: Capillary refill takes less than 2 seconds. Coloration: Skin is not jaundiced. Neurological: General: No focal deficit present. Mental Status: She is alert and oriented to person, place, and time. Cranial Nerves: No cranial nerve deficit. Current Medications: Scheduled: ??? 0.9% NaCl 3 mL Intracatheter q8h ??? acetaminophen 500 mg Oral q4h ??? amLODIPine 10 mg Oral QDAY ??? carvedilol 12.5 mg Oral BID WC ??? [START ON 02/24/2024] cefepime 1 g Intravenous q24h ??? gabapentin 100 mg Oral TID ??? heparin 5,000 Units Subcutaneous q8h ??? insulin aspart 0-12 Units Subcutaneous q6h ??? lidocaine 1 patch Transdermal q24h ??? lisinopril 20 mg Oral QDAY ??? vancomycin (VANCOCIN) IV dose per pharmacy Does not apply DIRECTED Continuous: PRN: ??? SALINE LOCK, INSERT AND MAINTAIN AND 0.9% NaCl AND 0.9% NaCl ??? dextrose IV for hypoglycemia OR dextrose IV for hypoglycemia OR glucagon ??? glucose (Diabetic Use) gel ??? melatonin ??? 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 #Concern for BL PNA from OSH - CXR pending - MRSA Nares Positive #Staph Bacteremia #Leukocytosis - Bcx pos at OSH 02/15 - Repeat cultures were done 02/17 - Originally on johnny/cefe/vanc on 02/15 --> Johnny/vanc. Transitioned to cefe/vanc 02/17 - TTE w/o vegetation at OSH - Has chest port for HD PLAN - ID consulted appreciate rec's - Cont cefe/vanc - Repeat Cx pending, if cultures continue to be positive may need repeat TTE vs MATT or consideration of chest port removal - Repeat UA ordered due to squam cells on previous ?? #ESRD T//Fri - Nephro consulted for dialysis -Access: Chest port - Per patient, never had kidney biopsy or was told why she was ESRD, if upon review does not have any biopsy or further workups, may be beneficial for outpatient f/u and/or biopsy to assess cause ?? #HTN - Continue home Lisinopril 10mg, Coreg 12.5mg and Amlodipine 10mg ?? #T2DM - SSI w/ accuchecks - Cont home Gabapentin 100 TID - Not on basal insulin at home, stated she uses Insulin PRN for BG over 200 ?? #Right Heel Ulcer - Wound Care Consult ?? #Insonmia - Melatonin 3mg ?? #?Sickle Cell #Anemia - Patient stated she was diagnosed at [facility], unclear if it was sickle cell trait vs disease - Will likely need further investigation, likely o/p heme/onc referral Code: FULL Diet: Diabetic/renal Electrolytes: Replete PRN PPx: Heparin Access: PIV, Port Dispo: Pending further eval The above assessment and plan will be discussed with the attending. This note is not final until attested by attending physician. Israel Gordon DO Internal Medicine Resident [facility] 02/23/2024 10:30 AM Associated attestation - Rafa Paetl MD - 02/23/2024 2:53 PM CDT I have seen and examined the patient with the resident. I agree with the assessment and plan as documented. Rafa Patel MD General Internal Medicine * Mark Chinchilla MD - 02/23/2024 4:54 AM CDT Orthopaedic Trauma Surgery Daily Progress Note Name: Gay Canales Age: [age] year old Room: 108/01 Date Admitted: 02/22/2024 Interval History: Patient seen and examined on rounds this AM. No acute events overnight. Pain is controlled. No new numbness or tingling. Labs CBC Recent Labs Component Name 02/22/244 06/10/23 1043 05/22/23 0521 WBC 18.0* 6.0 6.2 HGB 9.6* 11.9* 8.9* HCT 30.5* 39.9 30.9* PLTCOUNT 485* 434* 330 BMP Recent Labs Component Name 02/22/244 06/10/23 0939 05/22/23 0521 05/21/23 0450 NA 136 143 143 143 POTASSIUM 4.1 4.1 3.5 3.6 CL 100 110* 110* 109* CO2 26 25 26 27 BUN 21 8 10 13 CREATININE 4.88* 1.96* 1.52* 1.62* GLUCOSE 261* 79 99 99 CALCIUM 8.8 8.3* 8.0* 7.9* MAGNESIUM 2.2 - 1.8 1.7 PHOS 5.0 - 4.2 4.6 Coags Recent Labs Component Name 02/22/24 2214 04/26/23 0629 PT 14.6 16.3* INR 1.2 1.3 PTT - 29.8 Vitamin D No results for input(s): CSHP05CR in the last 10642 hours. Vitals BP 138/75 Pulse 85 Temp 98.5 ??F (36.9 ??C) (Oral) Resp 18 SpO2 98% Temp (24hrs), Av.5 ??F (36.9 ??C), Min:98.5 ??F (36.9 ??C), Max:98.5 ??F (36.9 ??C) Physical Exam General appearance: Alert, cooperative, and no apparent distress Right upper extremity: Fires motor R/M/U/AIN/PIN, Sensation intact in R/M/U nerve distributions distally, extremity warm and well perfused. Left upper extremity: Fires motor R/M/U/AIN/PIN, Sensation intact in R/M/U nerve distributions distally, extremity warm and well perfused. Assessment and Plan: Gay Canales is a 33 year old female with concern for right shoulder septic arthritis in the setting of MRSA bacteremia s/p right shoulder aspiration with 4K cells. Also, there are periarticular abscess in the L shoulder. Plan: 1. Weight bearing status: ? BUE: WBAT 2. No further orthopaedic intervention needed at this time. 3. Recommend antibiotics and medical management, will follow culture results from R shoulder aspiration 4. For the left, periarticular shoulder abscesses reported, recommend IR guided drainage with [facility] interventional radiology. 5. Diet: OK from ortho perspective 6. PT/OT 7. Current Dispo: no further orthopaedic intervention necessary Daily Reminders: 8. Pain control per primary ? Recommend avoiding NSAIDs during the first 3 weeks after injury and surgery due to risk of delayed healing 9. DVT Prophylaxis: ? In hospital: Per primary, OK from Ortho perspective 10. Bone health: Please check vitamin D level for all fracture patients ? If low, please give Vit D3 5000IU daily x 30 days followed by Vit D3 1000IU daily ? If normal, give Vit D3 1000IU daily 11. For questions, please contact [facility] at [phone] or send epic chat to DAYA. For urgent questions, please page Ortho Trauma service pager at [phone] or through AMION. Mark Chinchilla MD 02/23/2024 4:55 AM * Jacey Rice RN - 02/23/2024 4:53 AM CDT Problem: Pain/Discomfort Goal: Patient exhibits reduced pain/discomfort as evidenced by pain scores Outcome: Progressing Goal: Patient uses pharmacological and non-pharmacological pain management strategies. Outcome: Progressing Problem: Fall Risk Goal: Fall risk and fall related injury risk are minimized (interventions related to the fall risk can be found in the flowsheet documentation) Outcome: Progressing Problem: Skin Integrity Goal: Skin integrity is maintained or improved Outcome: Progressing * Graeme Verduzco MD - 02/23/2024 12:44 AM CDT Orthopaedic Trauma Plan of Care: Review of shoulder aspiration results without concern for septic right shoulder at this time. Recommend pain control as able. PT/OT when able. WBAT RUE. No further orthopaedic interventions planned at this time. Graeme Verduzco MD 02/23/2024 12:44 AM * Golden Contreras, EliezerD - 02/22/2024 10:18 PM CDT ACTIVE CONSULTS TO PHARMACY/DISEASE STATE [...] patient populations. REF: https://www.idsociety.org/practice-guideline/vancomycin/ ASSESSMENT/PLAN Indication: suspected Bacteremia with Goal Level: AUC 400-600 Assessment Microbiology: No results for input(s): MRSADPCR in the last 92580 hours. History/current positive cultures for MRSA: Other pertinent micro: All [facility] labs were collected 02/21, pending for results Renal: Recent Labs Component Name 06/10/23 0939 05/22/23 0521 05/21/23 0450 05/20/23 0542 CREATININE 1.96* 1.52* 1.62* 1.65* BUN 8 10 13 12 Considered difficult to accurately assess at this time as patient was on intermittent hemodialysis (iHD) at OSH scheduled MWF. Historical dosing data that influences current dosing decisions: Initial dosing was started 02/15, Thus it is Day 7 of treatment. Last Level: 02/20 at 0742 was 10.9 Last dose was given 02/20 at 1840 after iHD (1000mg dose) OSH plan was to check VR at 02/22 at 0400 Plan Regimen: Maintenance dose: One time dose of 1000mg after previous HD(02/22) Dosing interval: Intermittent dosing based on levels Unable to accurately predict trough/AUC at this time with planned serial dosing strategy. Monitoring Will order a vancomycin random level prior to iHD session on 02/22 at 0400 and adjust regimen if indicated. Continue to monitor patient???s renal function and cultures as needed. Golden Contreras, PharmD 02/22/2024 9:42 PM [facility] Vancomycin Guideline SUBJECTIVE/OBJECTIVE Gay Canales is a 33 year old female Wt There is no height or weight on file to calculate BMI. Dialysis Orders (72h ago, onward) None Vancomycin Administrations from JAN (last 72 hours) None Recent Labs Component Name 05/21/23 0450 05/20/23 0918 05/18/23 0617 05/09/23 0357 05/08/23 0841 05/06/23 0413 05/05/23 0409 04/29/23 0338 04/28/23 0319 04/27/232018 VANCORNDM - - 11.0 - - 17.1 11.7 - - - VANCTROUGH 15.5 - - 19.5 - - - - 34.6* - VANCOPEAK - 20.1* - - 26.1 - - - - 46.6* - = values in this interval not displayed. 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 Given high concern of seeding there was concern of endocarditis; TTE without vegetations at OSH, MATT not done. OSH could not perform procedure due to multiplecomorbidity. On interview, patient corroborated the history from notes. Patient complained of bilateral shoulderpain otherwise patient denies MCKINLEY, CP, SOB and fevers. On Admission: Leukocytosis of 18 Lactic not elevated 1.3 HCG <3 Ortho and Gen Surg consulted for Septic Arthritis and Soft Tissue Abscess Past Medical History: Past Medical History: Diagnosis [...] 2 Paternal Grandmother ??? Hypertension Paternal Grandmother Social History: Social History Socioeconomic History ??? Marital status: Single Spouse name: Not on file ??? Number of children: Not on file ??? Years of education: Not on file ??? Highest education level: Not on file Occupational History ??? Not on file Tobacco Use ??? Smoking status: Former Types: Cigarettes Start date: 2010 ??? Smokeless tobacco: Never ??? Tobacco comments: Quit 4-5 months after starting Vaping Use ??? Vaping Use: Never used Substance and Sexual Activity ??? Alcohol use: Not Currently Comment: Occassionally ??? Drug use: Not Currently Types: Marijuana Comment: At age 20 for 4-5 months ??? Sexual activity: Not on file Other Topics Concern ??? Not on file Social History Narrative ??? Not on file Social Determinants of Health Financial Resource Strain: Low Risk (05/18/2023) Overall Financial Resource Strain (CARDIA) ??? Difficulty of Paying Living Expenses: Not hard at all Food Insecurity: No Food Insecurity (05/18/2023) Hunger Vital Sign ??? Worried About Running Out of Food in the Last Year: Never true ??? Ran Out of Food in the Last Year: Never true Transportation Needs: No Transportation Needs (05/18/2023) PRAPARE - Transportation ??? Lack of Transportation (Medical): No ??? Lack of Transportation (Non-Medical): No Stress: No Stress Concern Present (05/18/2023) [place] [employer] - Occupational Stress Questionnaire ??? Feeling of Stress : Not at all Housing Stability: Low Risk (05/18/2023) Housing Stability Vital Sign ??? Unable to Pay for Housing in the Last Year: No ??? Number of Places Lived in the Last Year: 1 ??? Unstable Housing in the Last Year: No Allergies: No Known Allergies Home Medications: No current facility-administered medications on file prior to encounter. Current Outpatient Medications on File Prior to Encounter Medication Sig Dispense Refill ??? Alcohol Swabs (Alcohol Prep) 70 % USE ONE SWAB TO CLEAN SKIN FOUR TIMES DAILY BEFORE TESTING 100 Each PRN ??? apixaban (Eliquis) 5 MG tablet Take 2 (two) tablets by mouth 2 times daily for 2 days 0 ??? apixaban (Eliquis) 5 MG tablet Take 1 (one) tablet by mouth 2 times daily for 90 days 0 ??? blood glucose ([place] REITTouch Verio) test strip USE ONE STRIP TO TEST BLOOD SUGAR FOUR TIMES DAILY 100 strip PRN ??? Blood Glucose Monitoring Suppl (Discount Ramps Verio Reflect) w/Device KIT Use 1 kit [...] 3 times daily with meals ??? Lancets (dELiAs DELICA PLUS 33G EXTRA FINE LANCET) USE ONE LANCET TO PRICK FINGER FOUR TIMES DAILY FOR BLOOD GLUCOSE TESTING 100 Each PRN ??? lisinopril (Prinivil; Zestril) 10 MG tablet Take 1 (one) tablet by mouth once daily ??? melatonin 3 MG tablet Take 1 (one) tablet by mouth nightly as needed for Insomnia ??? nystatin (Mycostatin) 895116 UNIT/GM powder Apply to affected area 3 times daily ??? potassium chloride ER (Klor-Con M) 20 MEQ tablet Take 1 (one) tablet by mouth daily with breakfast Current Medications: Scheduled: ??? 0.9% NaCl 3 mL Intracatheter q8h ??? acetaminophen 500 mg Oral q4h ??? amLODIPine 10 mg Oral QDAY ??? carvedilol 12.5 mg Oral BID WC ??? cefepime 2 g Intravenous q8h ??? gabapentin 100 mg Oral TID ??? heparin 7,500 Units Subcutaneous q8h ??? insulin aspart 0-12 Units Subcutaneous q6h ??? lisinopril 20 mg Oral QDAY ??? vancomycin (VANCOCIN) IV dose per pharmacy Does not apply DIRECTED Continuous: PRN: ??? SALINE LOCK, INSERT AND MAINTAIN AND 0.9% NaCl AND 0.9% NaCl ??? dextrose IV for hypoglycemia OR dextrose IV for hypoglycemia OR glucagon ??? glucose (Diabetic Use) gel ??? melatonin ??? oxyCODONE (immediate release) OR oxyCODONE (immediate release) Review of Systems: Review of Systems Constitutional: Positive for malaise/fatigue. HENT: Negative. Eyes: Negative. Respiratory: Negative. Cardiovascular: Negative. Gastrointestinal: Negative. Genitourinary: Negative. Musculoskeletal: Positive for joint pain and myalgias. Skin: Negative. Neurological: Negative. Endo/Heme/Allergies: Negative. Psychiatric/Behavioral: Negative. OBJECTIVE Vital Signs: Temp: [98.3 ??F (36.8 ??C)-98.5 ??F (36.9 ??C)] 98.3 ??F (36.8 ??C) Pulse: [81-85] 81 Resp: [16-18] 16 BP: (136-138)/(75-78) 136/78 Physical Exam: Physical Exam Constitutional: General: She is not in acute distress. Appearance: She is not toxic-appearing. HENT: Head: Normocephalic. Nose: Nose normal. Mouth/Throat: Mouth: Mucous membranes are moist. Eyes: Extraocular Movements: Extraocular movements intact. Cardiovascular: Rate and Rhythm: Normal rate. Pulmonary: Effort: Pulmonary effort is normal. Breath sounds: Normal breath sounds. Abdominal: Palpations: Abdomen is soft. Musculoskeletal: General: Normal range of motion. Cervical back: Normal range of motion. Comments: Left AKA Shoulder Tender to Palpation Fluctuant Abscess located at left armpit region Right Heel is Bandaged, no oozing or blood Skin: General: Skin is warm. Neurological: General: No focal deficit present. Mental Status: She is alert. Lab Results: CBC: Recent Labs Component Name 02/22/244 06/10/23 1043 05/22/23 0521 WBC 18.0* 6.0 6.2 HGB 9.6* 11.9* 8.9* HCT 30.5* 39.9 30.9* MCV 94.4 93.2 94.5 Coagulation Panel: Recent Labs Component Name 02/22/24 2214 04/26/23 0629 PT 14.6 16.3* INR 1.2 1.3 PTT - 29.8 BMP: Recent Labs Component Name 02/22/24221306/10/23 0939 05/22/23 0521 NA 136 143 143 POTASSIUM 4.1 4.1 3.5 CL 100 110* 110* CO2 26 25 26 BUN 21 8 10 CREATININE 4.88* 1.96* 1.52* CALCIUM 8.8 8.3* 8.0* Recent Labs Component Name 02/22/24221305/22/23 0521 05/21/23 0450 MAGNESIUM 2.2 1.8 1.7 Recent Labs Component Name 02/22/244 05/22/23 0521 05/21/23 0450 PHOS 5.0 4.2 4.6 Hepatic Panel: Recent Labs Component Name 02/22/24221306/10/23 0939 05/22/23 0521 AST 7 12 9 ALT 11 8 5 ALKPHOS 221* 139 143 TBILI 0.2 0.2 0.1* ALB 1.5* 1.5* 1.4* ABG: Recent Labs Component Name 05/17/23220512/03/22 1856 PH 7.39 7.28* Amylase/Lipase: Invalid input(s): AMYL , LIPA Thyroid Studies: No results for input(s): TSH , T4 in the last 84343 hours. Cardiac Enzymes: Recent Labs Component Name 04/27/2329 12/02/225 CKTOTAL 1,624* - TROPONINI - 0.023 Lipid Panel: Recent Labs Component Name 12/02/223 LDLCALC 74 HDL 8* Microbiology: Reviewed Imaging & Studies: Right Shoulder XRAY: 1. Erosions of distal right clavicle suspicious for septic arthritis. 2. Soft tissue gas posterior to right humeral head, consistent with infection. Right shoulder MRI without and with contrast is recommended. L Shoulder MRI: IMPRESSION: 1. Severe infectious subacromial/subdeltoid bursitis (abscess) with extension of an abscess into teres minor muscle belly. Myositis of the rotator cuff muscle bellies and deltoid muscle. 2. Osteomyelitis involving acromion and humeral head. 3. Worsened visualized abscess and myositis involving left pectoralis major muscle. 4. Mild glenohumeral joint chondrosis and mild acromioclavicular joint osteoarthritis. 5. Small glenohumeral joint effusion. L Shoulder US: IMPRESSION: 1. Edema and fluid in the muscle and subcutaneous fat around the left shoulder, consistent with myositis and cellulitis. It is not clear if any of the fluid would be drainable. Left shoulder CT with contrast is recommended. US Abdomen: Impression: No significant abnormality seen. ASSESSMENT & PLAN 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) (POA: Unknown) R Shoulder Septic Arthritis Soft tissue Abscess - Unclear Source - OSH did TTE without vegetations, Pending MATT - Ortho Consulted for OM - Did Aspiration of Right Shoulder Joint, Follow up synovial fluid analysis - Consulting Gen Surg for soft tissue abscess, pending recs - F/u Blood Culture 02/21 - On Vanc/Cefepime, deescalate as appropriate Concern for BL PNA from OSH - CXR - No focal consolidations seen on CXR at [facility], pending final radiology read - MRSA Nares Positive ESRD MWF - Consult Nephrology for Dialysis HTN - Continue Lisinopril 10mg, Coreg 12.5mg and Amlodipine 10mg T2DM - SSI while inpatient - Gabapentin - Not on basal insulin at home, stated she uses Insulin PRN for BG over 200 Right Heel Ulcer - Wound Care Consult Sleep - Melatonin 3mg Sickle Cell - Patient stated she was diagnosed at [facility], unclear if it was sickle cell trait vs disease - Pending further eval Code: FULL Diet: NPO Electrolytes: Replete PRN PPx: Heparin Access: PIV, Dialysis Cath Dispo: Pending Workup The above assessment and plan will be discussed with the attending. This note is not final until attested by attending physician. Jg Aguirre MD Internal Medicine Resident [facility] 02/23/2024 5:46 AM Associated attestation - Rafa Patel MD - 02/23/2024 9:33 AM CDT I have seen and examined the patient with the resident. I agree with the assessment and plan as documented. Rafa Patel MD General Internal Medicine Day of Service: February 23, 2024 documented in this encounter Procedure Notes * Tao Stein MD - 03/02/2024 5:00 PM CDTProcedure(s): HEMODIALYSIS INPATIENT NEPHROLOGY PROCEDURE NOTE Procedure: Hemodialysis Indication: ESRD I saw and evaluated the patient during hemodialysis session today. Ms Canales is sleepy but arousable in no distress. 3 hour treatment Blood flow 350 ml/min via tunneled IJ catheter Dialysate flow 700 ml/min Dialysis bath: 140 Na, 2 K, 2.5 ca, 32 bicarb Net UF 500 ml Tolerated well. Tao Stein MD 03/02/2024 5:00 PM * Tao Stein MD - 02/28/2024 6:42 PM CDTProcedure(s): HEMODIALYSIS INPATIENT NEPHROLOGY PROCEDURE NOTE Procedure: Hemodialysis Indication: ESRD I saw and evaluated the patient during hemodialysis session today. We dialyzed her today to get herback on her TTS schedule in preparation for hospital discharge. Treatment today: 3 hour dialysis session. Blood flow 350 ml/min Dialysate flow 700 ml/min Dialysis bath: 140 Na, 3 K, 2.5 Ca, 32 bicarb UF goal 0.5 L Heparinization during dialysis: 2000 units at initiation, 1000 additional units give each hour. Tolerated well, no complication Tao Stein MD 02/28/2024 6:42 PM * Tao Stein MD - 02/27/2024 4:19 PM CDTProcedure(s): HEMODIALYSIS INPATIENT NEPHROLOGY PROCEDURE NOTE Procedure: Hemodialysis Indication: ESRD I saw and evaluated the patient during hemodialysis session today. Repeat treatment today because he session yesterday was truncated due to system clotting off. 2.5 hour session today Blood flow 350 ml/min via tunneled IJ catheter Dialysate flow 700 ml/min Dialysis bath 140 Na, 3 K, 2.5 Ca, 32 bicarb Net UF 1 L She received 1000 units heparin at initation and then 500 units/hour. Tolerated well, no complication. Tao Stein MD 02/27/2024 4:19 PM * Tao Stein MD - 02/26/2024 5:09 PM CDTProcedure(s): HEMODIALYSIS INPATIENT NEPHROLOGY PROCEDURE NOTE Procedure: Hemodialysis Indication: ESRD I saw and evaluated the patient during hemodialysis session today. Catheter had high venous pressures on initiation of treatment. The catheter was then locked with alteplace for 1 hour dwell. Dialysis was resumed, initially with adequate pressures at 350 ml/min blood flow. However, dialysis then clotted off about 2 hours of treatment. Net UF: 1.3 L. We will attempt treatment again tomorrow with increased 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 during the treatment. Tao Stein MD 02/26/2024 5:09 PM * Husam Palacios MD - 02/25/2024 11:17 AM CDT IP Sedation Post Date/Time: 02/25/2024 11:17 AM Performed by: Husam Palacios Authorized by: Husam Palacios Unit: IR Post-Procedure Attestation: I have reviewed [...] is Normalthermic Patient's pain level is: None 02/25/2024 11:17 AM Husam Palacios MD * Husam Palacios MD - 02/25/2024 11:16 AM CDT Brief Procedure Note - Interventional Nephrology Gay Canales 1990 Date of procedure: 02/25/24 Procedure: RIJ Permcath exchange over guidewire Android Programmer: Husam Palacios Complications: None Permcath OK to use Full procedure note and images in Synapse and EPIC (Results/Interventional) Dr.Posan Jas Palacios Nephrology Attending [facility] 02/25/24 11:17 AM * Husam Palacios MD - 02/25/2024 10:00 AM CDT IP Sedation Pre Date/Time: 02/25/2024 10:00 AM Performed by: Husam Palacios Authorized by: Husam Palacios Unit: IR Consent: Verbal consent obtained. Written [...] alternatives with patient, family members or patient transportation services representative: Yes Attestation: I have reviewed the immediate pre-procedure vital signs: Yes Patient reports or my clinical evaluation indicates there have been no changes in the patient's condition prior to the start of the procedure: Yes Intra-Procedure Patient is currently here for Permcath exchange indicated for bacteremia 02/25/2024 10:00 AM Husam Palacios MD * Tao Stein MD - 02/24/2024 3:38 PM CDTProcedure(s): HEMODIALYSIS INPATIENT NEPHROLOGY PROCEDURE NOTE Procedure: Hemodialysis Indication: ESRD I saw and evaluated the patient during hemodialysis session today. The patient is sleepy but arousable. Denies pain at present. No n/v. Appetite OK. Plans to have aspiration of collection around the right shoulder joint. Dialysis today: 3.5 hour treatment Blood flow 350 ml/min via tunnelled catheter Dialysate flow 700 ml/min Dialysate composition: 140 Na, 3 K, 2.5 Ca, 32 bicarb Ultrafiltration goal 2 L. Tao Stein MD 02/24/2024 3:38 PM * Graeme Verduzco MD - 02/22/2024 10:49 PM CDT Orthopaedic Surgery Procedure Note Diagnosis: Right shoulder pain Procedure: Aspiration of the RIGHT shoulder. Indications: Gay Canales is a 33 year old female who has RIGHT shoulder pain and swelling. Thereis concern for septic joint. Procedure Details: Aspiration of Right shoulder joint. The patient was informed of her condition, and the need to work up possible septic joint. The patient was counseled as to the risks and benefitsof the procedure. The patient was understanding and agreeable. The patient was placed into the supine position. The area was prepped with chlorahexidine. The patient's RIGHT shoulder was entered utilizing the anterior portal. Approximately 5cc of fluid was aspirated. The needle was removed and the needle site dressed with a semi-sterile bandage. The aspirate will be sent for gram stain, aerobic/anaerobic culture, cell count and crystal analysis. Remainder of plan per note. Graeme Verduzco MD 02/22/2024 10:50 PM documented in this encounter Consult Notes * Yolanda Lazar MSW - 02/25/2024 12:16 PM CDTAssociated Order(s): IP CONSULT TO TRACK MAINTAINER Care Coordination Progress Note Anticipated level of care at discharge: Other Comment: Back to [facility]: Anticipated level of care provider: None: Anticipated Discharge Date: 02/26/24: Discharge Plan: Patient new to caseload. PADMINI attempted to contact admissions at [facility] [phone] to discuss patient returning to facility. PADMINI left a voicemail. Carley stated that patient can return and asked for updates. Updates faxed to [phone]. Orientation Level: Appropriate for developmental age;Oriented X4: Family Support (Name and Phone): Extended Emergency Contact Information Primary Emergency Contact: Silvia Resendiz Mobile Relation: Mother School Lunch Monitor needed? No Secondary Emergency Contact: GAYE BEAL Mobile Relation: Sister School Lunch Monitor needed? No Transportation at Discharge: Ambulance: READMISSION RISK SCORE is 20 at 12:16 PM 02/25/2024.: Name: VERONIKA John [phone] * Sadia Moran RD/RAFAEL - 02/24/2024 9:34 AM CDTAssociated Order(s): IP CONSULT TO NUTRITIONAL SERV Images from the original note were not included. Clinical Nutrition Assessment Brief Synopsis: Patient is at Nutrition Risk; Specific criteria can be found in assessment below Nutrition Plan: NPO for IR procedure today +Nathaniel BID for wound healing (breakfast and dinner for absorption) mixed with juice, soda, or water(7gm arginine, 7gm glutamine, 2.5g collagen protein, 300mg VIT C, 9.5mg zinc) +Nepro (425 kcals, 19 g protein, 38 g carbohydrate) Once/daily with breakfast Recommendations to Physician: Advance diet when/as medically appropriate -- encourage adequate PO intake of meals and ONS to optimize wound healing Comments: RD consulted for wounds, per nurse nutrition screen. Noted chronic L heal ulcer and abscess to L shoulder. Pt made NPO this AM for planned abscess draining procedure with IR today. No documented PO intake during admission. Last BM 02/20; no significant GI issues noted in chart. Labs reviewed -- noted abnormal renal function. K+ (WNL); Phos (6.3), BUN (28), Fraud Representative (5.93) and GFR (9). Pt withhx of ESRD on HD (TTS) -- per nephrology note. Noted plan for HD today. Renvela ordered, per JAN. Noted hx of T2DM as well; recent A1C = 6.5% (02/23/24) -- receiving novolog, per MAR. Recommend advancing diet when/as soon as medically appropriate for PO intake. Will send ONS above (once diet advances) to optimize wound healing during admission. RD to follow per clinical nutrition guidelines. 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 BMI Range: Morbidly Obese Class 3 , Recent Weights/Methods 12/19/2022 1027 01/09/2023 1004 04/26/2023 0450 05/18/2023 0518 05/19/2023 0400 05/19/2023 1300 05/21/2023 0837 06/10/2023 0845 Weight: 128.4 kg (283 lb) 127 kg (280 lb) 140 kg (308 lb 9.6 oz) 140.1 kg (308 lb 14.4 oz) 139.3 kg(307 lb) 139.3 kg (307 lb 1.6 oz) 139.3 kg (307 lb) 129.7 kg (286 lb) Weight Method : -- -- Bedscale -- Bedscale -- -- -- Wt Comments: reviewed. Diet order accuracy Current diet order: NPO Nutrition recommendation: alter/change nutrition order P.O.Intake for the past 48 hrs: % Meal Taken Av % Min: 0 % Max: 0 % Supplement(s) Consumed- Last 48 hours None Food Allergies: No known food allergies GI Concerns: None Chewing/Swallowing: None Pain affecting intake: No Estimated Needs: KCAL: 2902-4850 (30-35 kcal/kg IBW) Protein (g): 77-88g (1.4-1.6 g/kg ABW) Fluid (ml): 1 ml/kcal Needs based on: Kcal/kg- (Comment) (Adj IBW of 55.2kg) Recommended Access Route: PO Laboratory values: Recent Labs Component Name 02/24/24 0130 02/23/24 0737 02/22/24 2214 06/10/23 0939 05/22/23 0521 BUN 28* 22 21 8 10 CREATININE 5.93* 5.35* 4.88* 1.96* 1.52* NA 135* 138 136 143 143 POTASSIUM 4.1 4.0 4.1 4.1 3.5 CL 100 102 100 110* 110* CO2 24 26 26 25 26 GLUCOSE 223* 128* 261* 79 99 CALCIUM 8.5 8.5 8.8 8.3* 8.0* PROT - - 8.1 5.8* 5.3* ALB - - 1.5* 1.5* 1.4* TBILI - - 0.2 0.2 0.1* ALKPHOS - - 221* 139 143 ALT - - 11 8 5 AST - - 7 12 9 ANIONGAP 11 10 10 12 11 BCR 5* 4* 4* 4* 7 OSMOLALITY 292 291 294 293 295 AGRATIO - - 0.2* 0.3* 0.4* EGFR 9* 10* 12* 35* 47* Medications: Current Facility-Administered Medications Medication ??? 0.9% NaCl injection 3 mL And ??? 0.9% NaCl injection 1-10 mL ??? acetaminophen (Tylenol) tablet 500 mg ??? amLODIPine (Norvasc) tablet 10 mg ??? carvedilol (Coreg) tablet 12.5 mg ??? cefepime (Maxipime) 1,000 mg in 0.9% NaCl IV 50 mL IVPB ??? dextrose 10 % IV bolus Or ??? dextrose 10 % IV bolus Or ??? glucagon (Glucagen) injection 1 mg ??? gabapentin (Neurontin) capsule 100 mg ??? glucose (Diabetic Use) oral gel ??? heparin injection 4,600 Units ??? heparin injection 5,000 Units ??? insulin aspart (NovoLOG) pen 0-12 Units ??? lidocaine (Lidoderm) 5 % patch 1 patch ??? lisinopril (Prinivil; Zestril) tablet 20 mg ??? melatonin tablet 3 mg ??? oxyCODONE (immediate release) (Roxicodone) tablet 5 mg Or ??? oxyCODONE (immediate release) (Roxicodone) tablet 10 mg ??? renal vitamin (Dialyvite) tablet 1 tablet ??? sevelamer carbonate (Renvela) tablet 800 mg ??? vancomycin (Vancocin) 1,000 mg in 0.9% NaCl IV 250 mL IVPB ??? vancomycin (Vancocin) IV dose per pharmacy Skin/Wound: WDL Education needed: Wound Healing Education Provided: Handout Provided (Attached to d/c summary) Nutrition Care Process (1) Nutrition Diagnostic Statement: Increased nutrient needs related to:: increased demands for wound healing;renal dysfunction as evidenced by:: estimated energy needs ..;estimated protein needs ..;electrolyte and/or mineral abnormalities;delayed wound healing Nutrition Diagnostic Statement Progress: New diagnostic statement established Nutrition Intervention: Meals and snacks:;Medical Food Supplements: Monitoring: PO intake, BM, labs, meds, weight, wound healing Evaluation: Nutrition Goal: Total intake will meet estimated nutrient needs Nutrition Goal Timeframe: Throughout stay Nutrition Goal Progress: New goal established Sadia Moran MS, RD/MILLIEN, LD Ascom: [id number] * Kign Ho PA-C - 02/24/2024 8:09 AM CDTAssociated Order(s): IP CONSULT TO INTERVENTIONAL RADIOLOGY Vascular & Interventional Radiology New Inpatient Consult Patient: Gay Canales Age: [age] year old Date of : 1990 Date of Admission: 02/22/2024 Date: 02/24/2024 Subjective: Referring physician: DO Evan Reason for consult: left shoulder aspiration HPI: 33 year old female with medical hx of DM2, ESRD requiring HD, HTN, CHF, left foot necrotizing fasciitis with prior AKA who [facility] for higher level of care on 02/21. Initially presented to OSH per chart review w/ c/o fatigue and weakness w/ reported b/l shoulder pain x 1 month. Pt treated for PNA, MRSA bacteremia at OSH. She was also found to have left shoulder subacromial/subdeltoid bursitis with fluid collection. At [facility], ortho has performed arthrocentesis of right shoulder. VIR consulted for aspiration of left shoulder fluid collection seen on OSH MRI. VSS. WBC 15.5. Past Medical History: Diagnosis Date ??? Essential [...] 2 Paternal Grandmother ??? Hypertension Paternal Grandmother Pertinent aspects of the patient's past medical, surgical, family, and social history are mentionedin the HPI above. Remaining PSFH was also reviewed and is not pertinent to the presenting problem. ROS: A complete ROS was performed. Pertinent positives and negatives are listed below and above in HPI. All other systems reviewed were negative. Constitutional: negative for fevers or chills Respiratory: negative for shortness of breath Cardiovascular: negative for chest pain or discomfort Medications: Scheduled: ??? 0.9% NaCl 3 mL Intracatheter q8h ??? acetaminophen 500 mg Oral q4h ??? amLODIPine 10 mg Oral QDAY ??? carvedilol 12.5 mg Oral BID WC ??? cefepime 1 g Intravenous q24h ??? gabapentin 100 mg Oral TID ??? heparin 5,000 Units Subcutaneous q8h ??? insulin aspart 0-12 Units Subcutaneous q6h ??? lidocaine 1 patch Transdermal q24h ??? lisinopril 20 mg Oral QDAY ??? renal vitamin 1 tablet Oral QDAY ??? sevelamer carbonate 800 mg Oral TID WC ??? vancomycin 1,000 mg Intravenous Once ??? vancomycin (VANCOCIN) IV dose per pharmacy Does not apply DIRECTED PRN: ??? SALINE LOCK, INSERT AND MAINTAIN AND 0.9% NaCl AND 0.9% NaCl ??? dextrose IV for hypoglycemia OR dextrose IV for hypoglycemia OR glucagon ??? glucose (Diabetic Use) gel ??? heparin ??? melatonin ??? oxyCODONE (immediate release) OR oxyCODONE (immediate release) Infusions: Objective: Physical examination: BP 113/67 Pulse 75 Temp 98.5 ??F (36.9 ??C) Resp 18 SpO2 94% Estimated body mass index is 44.78 kg/m?? as calculated from the following: Height as of 06/10/23: 1.702 m (5' 7.01 ). Weight as of 06/10/23: 129.7 kg (286 lb). General: NAD Eyes: anicteric, no lid lag ENT: atraumatic, MMM Neck: supple, trachea midline Lungs: normal respiratory effort, no accessory muscle use to RA Cardiovascular: Regular rate Abdomen: nondistended Psychiatric: AOx 3, appropriate mood and affect Laboratory findings: Recent Labs Component Name 02/24/24 0130 02/23/24 0737 02/22/24221312/03/222 12/02/221954 WBC 15.5* 16.8* 18.0* - 42.0* HGB 9.4* 9.7* 9.6* - 8.9* HCT 30.6* 30.4* 30.5* - 28.3* PLTCOUNT 490* 422* 485* - 556* PLATELET - - - - Occasional* - = values in this interval not displayed. Recent Labs Component Name 02/22/24221304/26/23 0629 INR 1.2 1.3 Recent Labs Component Name 02/24/24 0130 02/23/24 0737 02/22/242213 NA 135* 138 136 GLUCOSE 223* 128* 261* CREATININE 5.93* 5.35* 4.88* EGFR 9* 10* 12* Recent Labs Component Name 02/22/24221306/10/23 0939 05/22/23 0521 ALB 1.5* 1.5* 1.4* TBILI 0.2 0.2 0.1* ALT 11 8 5 AST 7 12 9 ALKPHOS 221* 139 143 Imaging: Relevant imaging studies were personally reviewed by myself and the IR attending, Dr Verdin. XR SHOULDER LEFT 2VW OR MORE Result Date: 02/23/2024 IMPRESSION: No acute fracture or dislocation of the left shoulder is identified. No evidence of abnormal intra-articular or periarticular soft tissue gas collection. > Dictated by Jean-Claude Sanchez MD (residential mortgage manager). I, Jed Dale MD have personally reviewed and interpreted this examination/study. > Interpreting Provider: Jed Dale MD on 02/23/2024 10:25 AM XR SHOULDER RIGHT 2VW OR MORE Result Date: 02/23/2024 IMPRESSION: 1. No acute osseous abnormality. 2. Several foci of soft tissue gas are suggested around the shoulder, potentially reflecting infection or postprocedural gas. > Interpreting Provider: Xander De Guzman MD on 02/23/2024 10:18 AM Recommendations: 33 year old female w/ above medical hx stated in HPI referred to VIR for evaluation of image-guidedaspiration of left shoulder fluid collection c/f abscess. Pertinent labs and relevant imaging studies were reviewed in detail and discussed by VIR staff. Risks, benefits, and alternatives of the procedure were discussed in detail. VIR amenable to aspirationof left shoulder fluid collection c/f abscess on OSH MRI. Desired labs/cx per medicine team. Risks include but are not limited to infection, bleeding, and injury to surrounding structures. All questions were answered to the best of my ability. The following physicians are qualified to perform the procedure and include: Dr. Sherman, Albert, Tulio, Lambert Veronica, Blaine, Perla, Blanca, Socorro Heard. 1. Written informed consent will be obtained prior to the procedure. 2. The patient does not need to be NPO. 3. Anticoagulation does not need to be held. 4. Plan for VIR image-guided aspiration of left shoulder collection. The IR attending, Dr. Verdin, is in agreement with the above recommendations. The case was discussed with Dr Gordon from the referring service on 02/23/24 at ~1400. King Ho PA-C Interventional Radiology [phone] Associated attestation - Jimmy eVrdin MD - 02/24/2024 1:46 PM CDT Attending Physician Attestation: Date of Service: 04/23/24 For this patient encounter, I have reviewed the PA's note. I have personally reviewed the patient'slabs, imaging, medications, and allergies. I agree with the history, physical exam findings, assessment, and plan. Jimmy Verdin MD [employer] Furniture [employer] Vascular & Interventional Radiology 02/24/2024 1:46 PM * Nadia Gomez, - 02/23/2024 2:54 PM CDTAssociated Order(s): IP CONSULT TO NEPHROLOGY [facility] Department of Nephrology ESRD Consult Date of Admission: 02/22/2024 Length of Stay: 1 Date of Service: 02/23/2024 Consulting Service: Gold Team Reason for Consult: ESKD w/ HD History of Present Illness Gay Canales is a 33 year old female with a history significant for ESKD w/ HD TTS via R-IJ Permcath, HTN, T2DM, left AKA 2/2 left foot gangrene who was transferred from outside hospital for further management of septic arthritis of the shoulder. Patient initially presented to OSH for dyspnea andher course was complicated by MSRA bacteremia, osteomyelitis/abscess in the left pectoralis muscle with other soft tissue abscess, pneumonia, and right shoulder septic arthritis. Patient is currentlyon cefepime and vancomycin. Orthopedic following and currently recommending medical management of her right shoulder abscess. For her left, they recommend IR guided drainage with [facility] IR. For her renal care, she has been on dialysis for the past 4 months. She was previously admitted to the hospital in 04/2023 where she was found to have BOBBY on CKD which was the possible inciting factorthat caused her to progress to ESRD. She continues to make urine and states she gets dialysis about3 hours. She is TTS, with her last session 02/21/2024. Cause of ESRD: BOBBY Urine: Yes Access: R-IJ Permcath Dialysis Center: [facility] Dialysis Days: TTS Dialysis Duration: 3 Hours 0 Minutes Last Dialysis: 02/21/2024 Inspectors And Regulatory Officers: Dr. Millan Review of Systems Negative unless otherwise stated in the above HPI Past Medical History: Diagnosis Date ??? Essential (primary) hypertension ??? Heart failure (HCC) ??? Type 2 diabetes mellitus without complications (HCC) Family History Problem Relation Name Age of Onset ??? Diabetes - Type 2 Mother ??? Hypertension Mother ??? Diabetes - Type 2 Father ??? Hypertension Father ??? Diabetes - Type 2 Paternal Grandmother ??? Hypertension Paternal Grandmother Social History: Social History Socioeconomic History ??? Marital status: Single Spouse name: Not on file ??? Number of children: Not on file ??? Years of education: Not on file ??? Highest education level: Not on file Occupational History ??? Not on file Tobacco Use ??? Smoking status: Former Types: Cigarettes Start date: 2010 ??? Smokeless tobacco: Never ??? Tobacco comments: Quit 4-5 months after starting Vaping Use ??? Vaping Use: Never used Substance and Sexual Activity ??? Alcohol use: Not Currently Comment: Occassionally ??? Drug use: Not Currently Types: Marijuana Comment: At age 20 for 4-5 months ??? Sexual activity: Not on file Other Topics Concern ??? Not on file Social History Narrative ??? Not on file Social Determinants of Health Financial Resource Strain: Low Risk (05/18/2023) Overall Financial Resource Strain (CARDIA) ??? Difficulty of Paying Living Expenses: Not hard at all Food Insecurity: No Food Insecurity (05/18/2023) Hunger Vital Sign ??? Worried About Running Out of Food in the Last Year: Never true ??? Ran Out of Food in the Last Year: Never true Transportation Needs: No Transportation Needs (05/18/2023) PRAPARE - Transportation ??? Lack of Transportation (Medical): No ??? Lack of Transportation (Non-Medical): No Stress: No Stress Concern Present (05/18/2023) [place] [employer] - Occupational Stress Questionnaire ??? Feeling of Stress : Not at all Housing Stability: Low Risk (05/18/2023) Housing Stability Vital Sign ??? Unable to Pay for Housing in the Last Year: No ??? Number of Places Lived in the Last Year: 1 ??? Unstable Housing in the Last Year: No Allergies: No Known Allergies Home Medications: No current facility-administered medications on file prior to encounter. Current Outpatient Medications on File Prior to Encounter Medication Sig Dispense Refill ??? Alcohol Swabs (Alcohol Prep) 70 % USE ONE SWAB TO CLEAN SKIN FOUR TIMES DAILY BEFORE TESTING 100 Each PRN ??? apixaban (Eliquis) 5 MG tablet Take 2 (two) tablets by mouth 2 times daily for 2 days 0 ??? apixaban (Eliquis) 5 MG tablet Take 1 (one) tablet by mouth 2 times daily for 90 days 0 ??? blood glucose ([place] REITTouch Verio) test strip USE ONE STRIP TO TEST BLOOD SUGAR FOUR TIMES DAILY 100 strip PRN ??? Blood Glucose Monitoring Suppl (OneTouch Verio Reflect) [...] 3 times daily with meals ??? Lancets (CovestorUCH DELICA PLUS 33G EXTRA FINE LANCET) USE ONE LANCET TO PRICK FINGER FOUR TIMES DAILY FOR BLOOD GLUCOSE TESTING 100 Each PRN ??? lisinopril (Prinivil; Zestril) 10 MG tablet Take 1 (one) tablet by mouth once daily ??? melatonin 3 MG tablet Take 1 (one) tablet by mouth nightly as needed for Insomnia ??? nystatin (Mycostatin) 468988 UNIT/GM powder Apply to affected area 3 times daily ??? potassium chloride ER (Klor-Con M) 20 MEQ tablet Take 1 (one) tablet by mouth daily with breakfast Hospital Medications: ??? 0.9% NaCl 3 mL Intracatheter q8h ??? acetaminophen 500 mg Oral q4h ??? amLODIPine 10 mg Oral QDAY ??? carvedilol 12.5 mg Oral BID WC ??? [START ON 02/24/2024] cefepime 1 g Intravenous q24h ??? gabapentin 100 mg Oral TID ??? heparin 5,000 Units Subcutaneous q8h ??? insulin aspart 0-12 Units Subcutaneous q6h ??? lidocaine 1 patch Transdermal q24h ??? lisinopril 20 mg Oral QDAY ??? [START ON 02/24/2024] vancomycin 1,000 mg Intravenous Once ??? vancomycin (VANCOCIN) IV dose per pharmacy Does not apply DIRECTED PRN Meds: ??? SALINE LOCK, INSERT AND MAINTAIN AND 0.9% NaCl AND 0.9% NaCl ??? dextrose IV for hypoglycemia OR dextrose IV for hypoglycemia OR glucagon ??? glucose (Diabetic Use) gel ??? heparin ??? melatonin ??? oxyCODONE (immediate release) OR oxyCODONE (immediate release) OBJECTIVE Vitals: 02/22/24 2018 02/22/24 2322 02/23/24 0503 02/23/24 0824 BP: 138/75 136/78 151/78 Pulse: 82 85 81 80 Resp: 18 16 18 Temp: 98.5 ??F (36.9 ??C) 98.3 ??F (36.8 ??C) 98.2 ??F (36.8 ??C) SpO2: 97% 98% 95% 93% Estimated body mass index is 44.78 kg/m?? as calculated from the following: Height as of 06/10/23: 1.702 m (5' 7.01 ). Weight as of 06/10/23: 129.7 kg (286 lb). Intake/Output Summary (Last 24 hours) at 02/23/2024 1454 Last data filed at 02/23/2024 0051 Gross per 24 hour Intake -- Output 400 ml Net -400 ml Physical Exam Constitutional: Appearance: She is not ill-appearing. HENT: Head: Normocephalic and atraumatic. Abdominal: General: There is no distension. Palpations: Abdomen is soft. Tenderness: There is no abdominal tenderness. Musculoskeletal: Right lower leg: No edema. Comments: Left AKA Skin: Coloration: Skin is not jaundiced. Neurological: General: No focal deficit present. Mental Status: She is oriented to person, place, and time. Motor: No weakness. Psychiatric: Behavior: Behavior normal. Thought Content: Thought content normal. [facility]: [facility] LABS: CBC: Recent Labs Component Name 02/23/24 0737 02/22/244 06/10/23 1043 WBC 16.8* 18.0* 6.0 HGB 9.7* 9.6* 11.9* HCT 30.4* 30.5* 39.9 MCV 95.0 94.4 93.2 BMP: Recent Labs Component Name 02/23/24 0737 02/22/24221306/10/23 0939 NA 138 136 143 CL 102 100 110* CO2 26 26 25 BUN 22 21 8 CREATININE 5.35* 4.88* 1.96* Recent Labs Component Name 02/23/24 0737 02/22/244 06/10/23 0939 05/22/23 0521 CALCIUM 8.5 8.8 8.3* 8.0* PHOS 5.3* 5.0 - 4.2 LFT: Recent Labs Component Name 02/22/24221306/10/23 0939 05/22/23 0521 PROT 8.1 5.8* 5.3* ALB 1.5* 1.5* 1.4* ALKPHOS 221* 139 143 AST 7 12 9 ALT 11 8 5 TBILI 0.2 0.2 0.1* Coagulation: Recent Labs Component Name 02/22/24221304/26/23 0629 PT 14.6 16.3* INR 1.2 1.3 Cardiac markers: Recent Labs Component Name 04/27/23 0729 12/02/22 1955 CKTOTAL 1,624* - TROPONINI - 0.023 IMAGING: XR SHOULDER LEFT 2VW OR MORE Result Date: 02/23/2024 IMPRESSION: No acute fracture or dislocation of the left shoulder is identified. No evidence of abnormal intra-articular or periarticular soft tissue gas collection. > Dictated by Jean-Claude Sanchez MD (residential mortgage manager). I, Jed Dale MD have personally reviewed and interpreted this examination/study. > Interpreting Provider: Jed Dale MD on 02/23/2024 10:25 AM XR SHOULDER RIGHT 2VW OR MORE Result Date: 02/23/2024 IMPRESSION: 1. No acute osseous abnormality. 2. Several foci of soft tissue gas are suggested around the shoulder, potentially reflecting infection or postprocedural gas. > Interpreting Provider: Xander De Guzman MD on 02/23/2024 10:18 AM ASSESSMENT 33 year old female with a history significant for ESKD w/ HD TTS via R-IJ Permcath, HTN, T2DM, leftAKA 2/2 left foot gangrene who was transferred from outside hospital for further management of septic arthritis of the shoulder. Nephrology consulted for continued HD management. PLAN ESKD w/ HD TTS - Access: R-IJ Permcath - Electrolytes: K - 4 - Acid Base: CO2 - 26 - Volume Status: Euvolemic --- Plan for HD on 02/23 to follow her regular schedule --- Will follow-up on tunneled dialysis catheter, and possible replacement given history of MRSA bacteremia; currently pending in-house blood cultures --- Start renal multivitamin daily Hypertension - BP today is 136/78 - Home regimen: Amlodipine 10 mg, Bumex 1 mg daily, Coreg 12.5 mg twice daily, lisinopril 20 mg daily, metolazone 10 mg, - continue medications as indicated to control BP Anemia - Hgb - 9.7 - may be secondary to anemia of chronic disease secondary to ESRD - transfuse pRBCs for Hgb<7 --- Recommend obtaining anemia panel (iron, transferrin, ferritin, folate, B12) Bone Mineral Disease - Ca - 8.5 - Albumin - 1.5 - PO4 - 5.3 --- PTH and 25-OH vitamin D level with AM labs --- If phosphorus continues to increase, recommend sevelamer 800 mg TID AC Patient will be seen and discussed with attending physician, Dr. Stein. Nadia Gomez DO Nephrology Fellow, PGY-4 02/23/2024 2:54 PM Associated attestation - Tao Stein MD - 02/23/2024 8:44 PM CDT NEPHROLOGY ATTENDING ADDENDUM: I have seen and examined the patient, reviewed the presentation and course with Dr. Gomez and agree with her assessment and plan in the accompanying note. I saw the patient at about 10 am on 02/23/2024. Ms Canales is a 33 yo woman with ESRD on chronic hemodialysis viatunneled catheter, Type 2 DM, history of L AKA due to infection now with septic arthritis, MRSA bacteremia, and other sites of infection including left pectoralis muscle, right shoulder. We will provide her dialysis care while she is here for treatment of infection. She will need replacement of the tunneled dialysis catheter when blood cultures are clearly negative. Course if very suspicious for endovascular infection with hematogenous spread. Tao Stein MD 02/23/2024 8:38 PM * Valeria Guillory - 02/23/2024 8:57 AM CDTAssociated Order(s): IP CONSULT TO INFECTIOUS DISEASES [facility] Infectious Diseases Consultation Patient Name: Gay Canales 1990 Room: 108/ Date of Admission: 02/22/2024 Date of Service: 02/23/2024 Primary Care Physician: No primary care provider on file. Attending Physician: Rafa Patel MD Reason for Infectious Disease Consultation MRSA bacteremia and possible septic arthritis History of Present Illness HPI: Gay Canales is a 33 year old female with a PMH significant for T2DM, ESRD (on HD TTS via R chest catheter), HTN, recently diagnosed sickle cell (trait vs dz unclear), CHF, L foot nec fasc s/pL AKA, who initially presented to OSH on 02/21 for generalized muscle weakness and overall fatigue. Pt also reported 4wks of bilateral shoulder pain. At OSH, found to have MRSA bacteremia (02/15 cx), PNA, and L pectoralis major and multiple other soft tissue abscesses on CT chest, and R shoulder septic arthritis on XR. Completion imaging with CT and MRI of L shoulder demonstrated subacromial/subdeltoid bursitis/abscess with involvement of muscle and osteomyelitis. Pt was initially started on vanc/johnny/cefe, then vanc/johnny, then transitioned to vanc/cefe on 02/17 at OSH. High concern for seeding and possible endocarditis given multiple areas ofinfection noted; no vegetations on TTE. Transferred to [facility] on 02/21 d/t OSH ortho unable to intervene given comorbidities. On admission to [facility], labs s/f leukocytosis (WBC 18>16.8), lactic wnl (1.3), elevated CRP of 8.3,elevated ESR 116, elevated eosinophils (10.7%). UA s/f 3+ LE, >100 WBC, 11-20 squams, trace bacteria, occasional yeast budding, among other findings. On vanc and cefe empirically. Ortho performed R shoulder aspiration (5cc) which demonstrated 4376 PMN w/ 94% neutrophils; not concerning for septic R shoulder; pending cultures. ACS and ortho recommending IR drainage of L shoulder abscesses. Per ortho note, no additional procedures. Infectious w/u so far: 02/21 blood cx pending; 02/21 R shoulder synovial fluid bacterial, anaerobe, AFB, fungal, GC cx pending. MRSA swab positive. GC urine screen p ending collection. Relevant PMH: - Hx of Schaalia turicensis bacteremia in Nov 2022 - Hx of staph epi bacteremia in May 2023 - Has R heel ulcer for the past 5mo (denies tenderness, change in appearance/drainage) Today: On encounter today, pt confirmed the above history. Denies SOB, chest pain, cough/sputum production, fever, chills, abd pain, dysuria, change in urine odor/color, trauma to the shoulders, prior hx ofshoulder infections. Social history confirmed as below. Medical History Past Medical History: Diagnosis Date ??? Essential (primary) hypertension ??? Heart failure (HCC) ??? Type 2 diabetes mellitus without complications (HCC) Surgical History Past Surgical History: Procedure Laterality Date ??? LEG AMPUTATION ABOVE KNEE Left 12/05/2022 Left; AMPUTATION ABOVE LEFT KNEE ??? Leg Amputation, Below Knee Left 12/02/2022 Left; LEFT ANKLE DISARTICULATION LEVEL 2 @ 2220 Social History Smoking: denies history Alcohol: occasional Illicit drugs/IV drug use: denies history Marital status: unknown Children: no Living situation: nursing facility for past 5mo Pets: dog at home (last lived w/ dog 5mo ago) Occupation: not working Education: unknown Travel history: no Sick contacts: no Incarceration history: no history: no STD history: no Sexually active: no Sexual orientation: unknown HIV status: NR Hepatitis status: NR TB exposure: no Prosthetic/Implant history: R chest HD catheter Immunizations: Immunization History Administered Date(s) Administered ??? [...] 2 Paternal Grandmother ??? Hypertension Paternal Grandmother I have confirmed the past medical, surgical, family and social history. Review of Systems Review of Systems Constitutional: Negative for chills and fever. Eyes: Positive for blurred vision and redness. L eye red and blind. R eye blurred vision. Respiratory: Negative for cough, hemoptysis, sputum production and shortness of breath. Cardiovascular: Negative for chest pain and leg swelling. Gastrointestinal: Negative for abdominal pain. Genitourinary: Negative for dysuria and hematuria. Musculoskeletal: Bilateral shoulder tenderness Skin: Negative for rash. R heel ulcer (5mo) Allergies No Known Allergies Antimicrobial History Current Antibiotics Cefepime (02/17-present) Vanc (02/17-present) Prior Antibiotics At [facility] Prior Antibiotics at OSH Vancomycin Cefepime Meropenem Home Medications Prior to Admission medications Medication Sig Start Date End Date Taking? Authorizing Provider Alcohol Swabs (Alcohol Prep) 70 % USE ONE SWAB TO CLEAN SKIN FOUR TIMES DAILY BEFORE TESTING 12/12/22Amanda Georges MD apixaban (Eliquis) 5 MG tablet Take 2 (two) tablets by mouth 2 times daily for 2 days 05/23/23 05/25/23 Willard Estrella MD apixaban (Eliquis) 5 MG tablet Take 1 (one) tablet by mouth 2 times daily for 90 days 05/26/23 08/24/23 Willard Estrella MD blood glucose (OneTouch Verio) [...] daily with morning and evening meal 12/12/22 Derian, Rosi V., SENIOR WINDOWS ADMINISTRATOR-UNIT REACTOR OPERATOR FeroSul 325 (65 Fe) MG tablet Take 1 (one) tablet by mouth daily with breakfast 08/08/22 Rebel Garcia MD furosemide (Lasix) 40 MG tablet Take 1 (one) tablet by mouth every Friday, Friday & Friday05/23/23 Willard Estrella MD gabapentin (Neurontin) 100 MG capsule Take 1 (one) capsule by mouth 3 times daily 12/27/22 Rebel Garcia MD insulin lispro (HumaLOG;ADMelog) 100 UNIT/ML pen Inject 0 (zero) Units to 6 (six) Units subcutaneously 3 times daily with meals 05/09/23 Joe Vargas MD Lancets (ONETOUCH DELICA PLUS 33G EXTRA FINE LANCET) USE ONE LANCET TO PRICK FINGER FOUR TIMES DAILY FOR BLOOD GLUCOSE TESTING 12/12/22 Amanda Georges MD lisinopril (Prinivil; Zestril) 10 MG tablet Take 1 (one) tablet by mouth once daily 05/24/23 Willard Estrella MD melatonin 3 MG tablet Take 1 (one) tablet by mouth nightly as needed for Insomnia 05/09/23 Joe Vargas MD nystatin (Mycostatin) 065777 UNIT/GM powder Apply to affected area 3 times daily 12/12/22 Kayleeva, Rosi V., SENIOR WINDOWS ADMINISTRATOR-UNIT REACTOR OPERATOR potassium chloride ER (Klor-Con M) 20 MEQ tablet Take 1 (one) tablet by mouth daily with breakfast 12/12/22 Derian, Rosi V., SENIOR WINDOWS ADMINISTRATOR-UNIT REACTOR OPERATOR Inpatient Medications ??? 0.9% NaCl 3 mL Intracatheter q8h ??? acetaminophen 500 mg Oral q4h ??? amLODIPine 10 mg Oral QDAY ??? carvedilol 12.5 mg Oral BID WC ??? cefepime 2 g Intravenous q8h ??? gabapentin 100 mg Oral TID ??? heparin 7,500 Units Subcutaneous q8h ??? insulin aspart 0-12 Units Subcutaneous q6h ??? lisinopril 20 mg Oral QDAY ??? vancomycin (VANCOCIN) IV dose per pharmacy Does not apply DIRECTED Objective Vitals BP 151/78 (BP Location: Right arm, Patient Position: Lying) Pulse 80 Temp 98.2 ??F (36.8 ??C) (Oral) Resp 18 SpO2 93% Temp (24hrs), Av.3 ??F (36.8 ??C), Min:98.2 ??F (36.8 ??C), Max:98.5 ??F (36.9 ??C) Physical Exam Physical Exam Eyes: Comments: L eye appears red (this is chronic per pt; blind out of the left eye). Blurred vision in the R eye 2/2 cataracts Cardiovascular: Rate and Rhythm: Normal rate and regular rhythm. Pulmonary: Effort: No respiratory distress. Breath sounds: No wheezing or rales. Abdominal: General: There is no distension. Palpations: Abdomen is soft. Tenderness: There is no abdominal tenderness. Musculoskeletal: Right lower leg: No edema. Comments: L AKA; no signs of infection present at AKA site Skin: Comments: R heel ulcer does not appear to involve bone on appearance. Mild yellow drainage noted onbandaging, but wound is not actively draining. Skin borders appear yellow. Wound is non-tender. Lines: PIV, R chest HD catheter (4mo), ext cath, R heel ulcer Lab Review CBC: Recent Labs Component Name 02/23/24 0737 02/22/24 2214 06/10/23 1043 WBC 16.8* 18.0* 6.0 RBC 3.20* 3.23* 4.28 HGB 9.7* 9.6* 11.9* HCT 30.4* 30.5* 39.9 MCV 95.0 94.4 93.2 BMP: Recent Labs Component Name 02/23/24 0737 02/22/24221306/10/23 0939 05/22/23 0521 NA 138 136 143 143 CL 102 100 110* 110* CO2 26 26 25 26 BUN 22 21 8 10 CREATININE 5.35* 4.88* 1.96* 1.52* ALB - 1.5* 1.5* 1.4* PROT - 8.1 5.8* 5.3* CrCl cannot be calculated (Unknown ideal weight.). LFTs: Recent Labs Component Name 02/22/24221306/10/23 0939 05/22/23 0521 12/02/22 1955 08/25/22 0315 08/24/22 1404 08/24/22 0725 ALKPHOS 221* 139 143 - - - - ALT 11 8 5 - - - - AST 7 12 9 - - - - ALBUMIN - - - - 2.0* 2.1* 1.7* - = values in this interval not displayed. Coagulation: Recent Labs Component Name 02/22/24221304/26/23 0629 PT 14.6 16.3* INR 1.2 1.3 PTT - 29.8 Microbiology, Imaging and other diagnostic tests MICROBIOLOGY: Blood culture: 02/15 blood cx at OSH: MRSA 02/21 blood cx pending Urine culture: Sputum culture: Wound culture: Other serologies: 02/21 MRSA swab positive 02/21 R shoulder synovial fluid bacterial, anaerobe, AFB, fungal, GC cx: pending GC urine screen: pending collection HISTOPATHOLOGY: None at this admission IMAGING & PROCEDURES: I have independently reviewed all pertinent images. Reports in chart. XR SHOULDER LEFT 2VW OR MORE Result Date: 02/23/2024 IMPRESSION: No acute fracture or dislocation of the left shoulder is identified. No evidence of abnormal intra-articular or periarticular soft tissue gas collection. > Dictated by Jean-Claude Sanchez MD (residential mortgage manager). I, Jed Dale MD have personally reviewed and interpreted this examination/study. > Interpreting Provider: Jed Dale MD on 02/23/2024 10:25 AM XR SHOULDER RIGHT 2VW OR MORE Result Date: 02/23/2024 IMPRESSION: 1. No acute osseous abnormality. 2. Several foci of soft tissue gas are suggested around the shoulder, potentially reflecting infection or postprocedural gas. > Interpreting Provider: Xander De Guzman MD on 02/23/2024 10:18 AM XR CHEST Result Date: 02/23/2024 FINDINGS/IMPRESSION: Interval placement of a right IJ approach central venous access catheter whichterminates in the right atrium. There is no pulmonary consolidation, pleural effusion, or pneumothorax. The heart size is normal. ?? 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 Currently being managed for MRSA bacteremia, L shoulder abscesses and r/o septic R shoulder. # MRSA bacteremia # R heel ulcer 02/15 blood cultures at OSH were positive for MRSA. TTE at OSH did not show vegetations; MATT not done. Ddx for source of infection: R heel ulcer (present for the past 5mo; s/p debridement months ago; no drainage) vs R chest HD catheter (present for the past 4mo) vs L AKA wound (unlikely; appears dry, non- erythematous, non-edematous) vs other Plan: - Continue vancomycin for MRSA coverage - F/u 02/21 blood cultures - Obtain R foot XR to r/o pt's R heel ulcer as a source of infection/bacteremia # r/o R shoulder septic arthritis Hx s/f bilateral shoulder pain x4wks. No hx of trauma to this shoulder. On exam, R shoulder appearsnon-erythematous and without fluctuations; mildly tender. Labs s/f leukocytosis, elevated ESR/CRP. Imaging w/ R shoulder XR demonstrated erosions of distal right clavicle suspicious for septic arthritis, and soft tissue gas posterior to the right humeral head, consistent with infection. Pt is now s/p R shoulder aspiration (5cc) w/ ortho; analysis demonstrated 4376 PMNs w/ 94% neutrophils; not concerning for septic R shoulder; pending cultures. Plan: - Continue vanc and cefe as part of empiric coverage until aspiration culture finalizes - F/u shoulder aspiration culture - Check CBC with auto diff and CMP weekly while on IV antibiotics # L shoulder soft tissue abscesses (L pec major, bursitis) Hx s/f bilateral shoulder pain x4wks. On exam, L shoulder appears non- erythematous and without fluctuations; mildly tender. Labs s/f leukocytosis, elevated ESR/CRP. Completion imaging at OSH with CT and MRI of left shoulder was reviewed by ACS at [facility]; demonstrates severe infectious subacromial/subdeltoid bursitis (abscess) with extension of an abscess into teres minor muscle belly, osteomyelitis involving acromion and humeral head, and worsened visualized abscess and myositis involving left pectoralis major muscle. ACS was initially consulted for drainage, but recommend IR or ortho consult d/t involvement of tendons, muscles, bones/joint. Plan: - Consult IR for drainage of abscesses - If draining, then please obtain bacterial culture & Gram stain, anaerobe culture, AFB cultureand fungal cultures - Continue vanc and cefe as part of empiric coverage - Check CBC with auto diff and CMP weekly while on IV antibiotics # r/o PNA Hx s/f PNA concerns at OSH, however, pt denies all respiratory sx (denies SOB, cough, sputum production). On exam, lungs are clear. Labs s/f MRSA on nasal swab. Imaging at [facility] w/ CXR does not demonstrate consolidations nor effusions. Plan: - No treatment indicated Allergies No Known Allergies Screening - 04/27/23 Hep C Ab NR - 04/27/23 HIV NR - Please repeat HIV panel Renal Function CrCl cannot be calculated (Unknown ideal weight.). Hardware R chest dialysis catheter QTc 05/17/23 EKG: QTc 452 Thank you for allowing us to participate in the care of this patient. We will continue to follow and monitor with you closely. Patient seen, examined, and case/plan were discussed with my attending physician, Dr. Lackey. Case was discussed with primary team. Valeria Guillory, MS4 [facility] ID [facility] ID Clinic Associated attestation - Woo Lackey MD - 02/23/2024 9:22 PM CDT I have reviewed the record and independently examined the patient. I agree with the findings and plan of care as documented by the medical student. Gay Canales is a 33 year old female with PMH of HTN, sickle cell, ESRD on HD, L-foot gangrene s/p L-AKA transferred from OSH on 02/21 for MRSA bacteremia, L- pectoralis muscle abscess/osteomyelitis, R-shoulder septic arthritis and concern for endocarditis. TTE at OSH showed no vegetation. R-shoulder aspiration had 4300 WBC (not suggestive of septicarthritis). Assessment and Recommendations 1. MRSA bacteremia with L-pectoralis abscess with concern for osteomyelitis. HD catheter, PNA, L-pectoralis abscess possible sources. On vanc and cefepime. Follow up blood cultures pending. - Follow MRI of L-shoulder - Continue vanc, D/C cefepime - If L-pectoralis abscess is drained, please send sample for gram stain and culture - Consider MATT if blood cultures from 02/21 grow MRSA - HIV screen 2. R-heel wound. Appears superficial. - X-ray of R-foot Woo Lackey MD, PhD, FIDSA * Anabel Richter MD - 02/23/2024 12:36 AM CDTAssociated Order(s): IP CONSULT TO GENERAL SURGERY Images from the original note were not included. Acute Care Surgery Consult History and Physical Gay Canales Age: [age] year old female Date of : 1990 Admit Date: 02/22/2024 Admitting Physician: Justyn Galvez DO Reason for Consult: Left Shoulder Abscess SUBJECTIVE History of Present Illness: Patient is a 33 year old female with PMHx DM, ESRD on Dialysis via R chest cath, HTN, Sickle cell, CHF, and Left AKA 2/2 LLE nec fasc, presenting as transfer from OSH for PNA, MRSA bacteremia, and osteomyelitis/abscess of shoulders. The patient reports approximately 4 weeks ago she developed right shoulder pain. She went to an OSH after 2 weeks and was advised it was likely muscular and given muscle relaxer. Her pain continued and she then developed dyspnea, malaise, and fatigue. She went to another hospital and XR of right shoulder showed concern for septic joint. CT of the chest was then obtained showing concern for pneumonia as well as Left shoulder abscess. Completion imaging with CT and MRI of left shoulder were obtained showing subacromial/subdeltoid bursitis/abscess with involvement of muscle and osteomyelitis. She was transferred to [facility] for further management of PNA and ortho management of septic arthritis. ACS consulted for soft tissue abscess of left shoulder. On evaluation, patient continues to complain of pain in her bilateral shoulders, worse in her right. She reports she has limited mobility in right shoulder due to pain. Left shoulder she is able to move but exacerbates pain. Her dyspnea has improved and she denies current chest pain. She denies associated fever, chills, nausea, vomiting, diarrhea, or constipation. She is currently undergoing dialy sis via R chest cath on T/T/S schedule. She notes she was diagnosed with sickle cell but unsure if it is disease or trait. She previously had amputation of LLE after developing necrotizing infection in her lower leg, seen by ID clinic. PMHx: CHF, HTN, DM2, left foot gangrene s/p AKA, ESRD on HD, DVT, Sickle Cell PSHx: L AKA Allergies: NKDA Social: Denies EtOH, tobacco, or other drug use Past Medical History: Past Medical History: Diagnosis Date ??? Essential (primary) hypertension ??? Heart failure (HCC) ??? Type 2 diabetes mellitus without complications (HCC) PCP: No primary care provider on file. Past Surgical History: Past Surgical History: Procedure [...] 2 Paternal Grandmother ??? Hypertension Paternal Grandmother Social History: Social History Tobacco Use ??? Smoking status: Former Types: Cigarettes Start date: 2010 ??? Smokeless tobacco: Never ??? Tobacco comments: Quit 4-5 months after starting Substance Use Topics ??? Alcohol use: Not Currently Comment: Occassionally Allergies: No Known Allergies Medications: Medications Prior to Admission Medication Sig Dispense Refill ??? Alcohol Swabs (Alcohol Prep) 70 % USE ONE SWAB TO CLEAN SKIN FOUR TIMES DAILY BEFORE TESTING 100 Each PRN ??? apixaban (Eliquis) 5 MG tablet Take 2 (two) tablets by mouth 2 times daily for 2 days 0 ??? apixaban (Eliquis) 5 MG tablet Take 1 (one) tablet by mouth 2 times daily for 90 days 0 ??? blood glucose (OneTouch Verio) test strip USE ONE STRIP TO TEST BLOOD SUGAR FOUR TIMES DAILY 100 strip PRN ??? Blood Glucose Monitoring Suppl (OneTouch Verio Reflect) [...] 3 times daily with meals ??? Lancets (FlightStatsTOUCH DELICA PLUS 33G EXTRA FINE LANCET) USE ONE LANCET TO PRICK FINGER FOUR TIMES DAILY FOR BLOOD GLUCOSE TESTING 100 Each PRN ??? lisinopril (Prinivil; Zestril) 10 MG tablet Take 1 (one) tablet by mouth once daily ??? melatonin 3 MG tablet Take 1 (one) tablet by mouth nightly as needed for Insomnia ??? nystatin (Mycostatin) 262392 UNIT/GM powder Apply to affected area 3 times daily ??? potassium chloride ER (Klor-Con M) 20 MEQ tablet Take 1 (one) tablet by mouth daily with breakfast Review of Systems: positives are in bold; Constitutional: fevers, chills, sweats, fatigue, weight loss/gain, chronic pain HEENT: head trauma, vision/hearing/voice changes, eye/ear/throat pain, nasal discharge, dysphagia, sores, ulcers, sinus pain Respiratory: cough, hemoptysis, sputum, GUZMAN, dyspnea, PND, wheezing Cardiovascular: chest pain/discomfort, palpitations, lower extremity edema, calf/leg pain Gastrointestinal: nausea/vomiting, diarrhea, constipation, melena, abdominal pain Genitourinary: dysuria, urgency, frequency, incontinence, hematuria Integument: rash, ulcers, itching Hematologic/lymphatic: easy bruising, bleeding, petechiae Musculoskeletal: myalgias, arthralgias, bilateral shoulder pain Neurological: headaches, dizziness, numbness, tingling, seizures Behavioral/Psych: anxiety, depression, memory problems Endocrine: polyuria, polydipsia, polyphagia, heat/cold intolerance OBJECTIVE Vitals: 02/22/24 2018 02/22/24 2322 BP: 138/75 Pulse: 82 85 Resp: 18 Temp: 98.5 ??F (36.9 ??C) SpO2: 97% 98% Temp (24hrs), Av.5 ??F (36.9 ??C), Min:98.5 ??F (36.9 ??C), Max:98.5 ??F (36.9 ??C) Systolic (36hrs), Av , Min:138 , Max:138 Diastolic (36hrs), Av, Min:75, Max:75 Estimated body mass index is 44.78 kg/m?? as calculated from the following: Height as of 06/10/23: 1.702 m (5' 7.01 ). Weight as of 06/10/23: 129.7 kg (286 lb). PREVIOUS WEIGHTS: Wt Readings from Last 5 Encounters: 06/10/23 129.7 kg (286 lb) 05/21/23 (!) 139.3 kg (307 lb) 04/26/23 (!) 140 kg (308 lb 9.6 oz) 01/09/23 127 kg (280 lb) 12/19/22 128.4 kg (283 lb) Physical Examination: Gen: Laying uncomfortably in bed. HEENT: Atraumatic, normocephalic, EOMI. CV: Normal rate and rhythm, right chest catheter Pulm: Nonlabored respirations on NC Abd: Soft, non-tender, non-distended MSK: Extremities are warm and well perfused with no clubbing, cyanosis, or edema, right shoulder limited ROM due to pain, no palpable collections, Left shoulder limited ROM due to pain, tenderness topalpation laterally and over joint space, s/p L AKA Neuro: Moving all extremities, no focal deficits Psych: Appropriate mood and affect Data Review: Labs: CBC Recent Labs Component Name 02/22/244 06/10/23 1043 05/22/23 0521 05/21/23 0450 WBC 18.0* 6.0 6.2 7.0 HGB 9.6* 11.9* 8.9* 8.8* HCT 30.5* 39.9 30.9* 30.3* PLTCOUNT 485* 434* 330 332 BMP Recent Labs Component Name 02/22/24221306/10/23 0939 05/22/23 0521 05/21/23 0450 05/20/23 0542 NA 136 143 143 143 143 POTASSIUM 4.1 4.1 3.5 3.6 3.6 CL 100 110* 110* 109* 110* CO2 26 25 26 27 29 BUN 21 8 10 13 12 CREATININE 4.88* 1.96* 1.52* 1.62* 1.65* GLUCOSE 261* 79 99 99 93 CALCIUM 8.8 8.3* 8.0* 7.9* 8.0* MAGNESIUM 2.2 - 1.8 1.7 1.9 PHOS 5.0 - 4.2 4.6 4.6 LFTs Recent Labs Component Name 02/22/24221306/10/23 0939 05/22/23 0521 05/21/23 0450 PROT 8.1 5.8* 5.3* 5.2* ALB 1.5* 1.5* 1.4* 1.4* TBILI 0.2 0.2 0.1* 0.2 ALT 11 8 5 6 AST 7 12 9 7 ALKPHOS 221* 139 143 140 Coag Recent Labs Component Name 02/22/24221304/26/23 0629 PT 14.6 16.3* PTT - 29.8 INR 1.2 1.3 Cardiac markers Recent Labs Component Name 04/27/23 0729 12/02/22 1955 CKTOTAL 1,624* - TROPONINI - 0.023 Urine: UA Recent Labs Component Name 02/22/24221306/10/23 0939 05/22/23 0521 05/21/23 0450 05/19/23 0638 05/18/23 1453 12/03/22 1707 12/03/22 1659 COLORU - - - - - - - Lesly* CLARITYU - - - - - - - Slt Cloudy* LABSPEC - - - - - - - 1.025 PROTEINTO - - - - - 214 - - KETONES - - - - - - - Negative BILIRUBINUR - - - - - - - 2+* BLOODU - - - - - - - 2+* EGFR 12* 35* 47* 44* - - - - NITRITE - - - - - - - Negative WBCU - - - - - - - 6-10* URINEBACT - - - - - - - Trace* - = values in this interval not displayed. Radiology Impressions: XR right shoulder: IMPRESSION: 1. Erosions of distal right clavicle suspicious for septic arthritis. 2. Soft tissue gas posterior to right humeral head, consistent with infection. Right shoulder MRI without and with contrast is recommended. XR Chest: Impression: Extensive central left lung hazy airspace disease and mild haziness right lung base. Correlate for asymmetric pulmonary edema versus bilateral pneumonia. CT PE abd/pelvis: IMPRESSION: 1. No pulmonary embolus. Sensitivity is mildly decreased by motion artifact. 2. Worsened diffuse lung disease, consistent with pneumonia superimposed on chronic lung disease. US Left Shoulder: IMPRESSION: 1. Edema and fluid in the muscle and subcutaneous fat around the left shoulder, consistent with myositis and cellulitis. It is not clear if any of the fluid would be drainable. Left shoulder CT with contrast is recommended. CT Left Shoulder: IMPRESSION: Rim enhancing fluid collections concerning for abscess/infectious about the shoulder, with adjacent myositis/cellulitis. Glenohumeral capsular involvement is not definitively seen, but not excluded. Focal erosion on the acromial undersurface concerning for osteomyelitis. Fluid collections adjacent to the lateral humeral head and posterior to the humeral head may be amenable to needle aspiration, either under ultrasound or CT guidance. Pulmonary findings may represent respiratory bronchiolitis and atelectasis, depending on the clinical context. MRI Left Shoulder: IMPRESSION: 1. Severe infectious subacromial/subdeltoid bursitis (abscess) with extension of an abscess into teres minor muscle belly. Myositis of the rotator cuff muscle bellies and deltoid muscle. 2. Osteomyelitis involving acromion and humeral head. 3. Worsened visualized abscess and myositis involving left pectoralis major muscle. 4. Mild glenohumeral joint chondrosis and mild acromioclavicular joint osteoarthritis. 5. Small glenohumeral joint effusion. Problem List: 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) (POA: Unknown) Assessment and Plan: Gay Canaels is a 33 year old female with PMHx DM, ESRD on HD, HTN, Sickle cell, CHF, and Left AKA 2/2 LLE nec fasc, presenting as transfer from OSH for PNA, MRSA bacteremia, and osteomyelitis/abscess of shoulders. On review of patient CT and MRI left shoulder, patient with left bursa abscess with involvement of muscle and left pec major abscess. Due to involvement of bursa and muscle, will defer management to orthopaedic surgery. Agree with continuing IV antibiotics and consider IR drainage.No acute general surgery intervention at this time. - No acute general surgical intervention - Recommend consulting Ortho for left shoulder bursitis/bursa abscess and myositis - Consider completion imaging of right shoulder - Agree with IV antibiotics - Remainder of care per primary Patient discussed with chief resident Dr. Sultana, to be staffed with Dr. Frye. Anabel Richter MD 02/23/2024 12:36 AM Associated attestation - Lee Frye MD - 02/26/2024 2:08 PM CDT Patient seen and examined with Resident and/ or nurse practitioner. Please see their note for further details. I confirm history, exam, assessment and plan except where it differs from mine. In addition I note: Interval history: pt with right shoulder abscess Family history is non-contributory. Exam: Right shoulder with pain and tenderness and limited ROM because of it L AKA Assessment/Plan: Right shoulder abscess -involving joint and possibly bone -abx -will need orthopedic input -may need operative drainage or IR drainage Please see resident's note for further details. Lee Frye MD * Graeme Verduzco MD - 02/22/2024 9:56 PM CDT Images from the original note were not included. Orthopedic Trauma Surgery Consultation Note Gay Canales, 33 year old, female : 1990 CSN: [id number] Admitted: 02/22/2024 8:14 PM Consulting Service: MED Consulting Physician: Primary Care Physician: No primary care provider on file. Today's Date/Time: 02/22/2024 9:58 PM Chief Complaint No chief complaint on file. History Gay Canales is a 33 year old female who presented on 02/22/2024 as a transfer from [facility] for concern for right shoulder septic arthritis on XR. Pt was transferred because OSH ortho could not intervene due to underlying severity of medical comorbidities. She has known MRSA bacteremia. There is concern for underlying osteomyelitis/abscess in the left pectoralis muscle as well as other soft tissue abscesses. Pt has PMH of ESRD on Dialysis (TTS), HTN, Sickle Cell (new diagnosis), CHF?, Left AKA 2/2 left foot gangrene. Orthopedic Surgery consulted for evaluation/management of evaluation of right shoulder chronic pain. ABx/Tetanus booster given?: YES / NO: Yes PMH includes: ESRD on Dialysis (TTS), HTN, Sickle Cell (new diagnosis), CHF?, Left AKA 2/2 left foot gangrene PSH is significant for: L AKA Pertinent Background Information: Prior orthopedic injuries/surgeries: NO Diabetic: NO Smoking history: YES Cardiac history: YES History of miscarriage or known clotting disorder: NO Current Blood thinners: NO Steroids: NO Vitals Blood pressure 138/75, pulse 82, temperature 98.5 ??F (36.9 ??C), temperature source Oral, resp. rate 18, last menstrual period 08/08/2022, SpO2 97%, not currently . Labs Lab results smartLinks are not currently available Lab results smartLinks are not currently available PMHx Past Medical History: Diagnosis Date ??? Essential (primary) hypertension ??? Heart failure (HCC) ??? Type 2 diabetes mellitus without complications (HCC) PSHx Past Surgical History: Procedure Laterality Date ??? LEG AMPUTATION ABOVE KNEE Left 12/05/2022 Left; AMPUTATION ABOVE LEFT KNEE ??? Leg Amputation, Below Knee Left 12/02/2022 Left; LEFT ANKLE DISARTICULATION LEVEL 2 @ 2220 Social Hx Social History Tobacco Use ??? Smoking status: [...] Known Allergies Medications Current Facility-Administered Medications Medication ??? 0.9% NaCl injection 3 mL And ??? 0.9% NaCl injection 1-10 mL ??? acetaminophen (Tylenol) tablet 500 mg ??? [START ON 02/23/2024] amLODIPine (Norvasc) tablet 10 mg ??? carvedilol (Coreg) tablet 12.5 mg ??? cefepime (Maxipime) 2,000 mg in 0.9% NaCl IV 50 mL IVPB ??? dextrose 10 % IV bolus Or ??? dextrose 10 % IV bolus Or ??? glucagon (Glucagen) injection 1 mg ??? gabapentin (Neurontin) capsule 100 mg ??? glucose (Diabetic Use) oral gel ??? heparin injection 7,500 Units ??? [START ON 02/23/2024] insulin aspart (NovoLOG) pen 0-12 Units ??? [START ON 02/23/2024] lisinopril (Prinivil; Zestril) tablet 20 mg ??? melatonin tablet 3 mg ??? vancomycin (Vancocin) IV dose per pharmacy Review of Systems A 12 point review of systems was performed and was negative except for what was mentioned in the HPI Physical Exam General: Awake, cooperative, in no acute distress. CV: Regular rate. Pulm: No audible wheezing, no use of accessory muscles Abd: soft, nontender, nondistended Neuro: CN's 2-12 grossly intact Musculoskeletal: RUE -Inspection: skin intact, compartments soft/compressible -Palpation: tender to palpation of shoulder -ROM: tender to passive range of motion of shoulder. No crepitation -Motor: Fires EPL/FPL/ EDC/FDS, flexes/extends wrist, flexes/extends elbow -Sensation: SILT in Axillary/Median/Ulnar/Radial distributions -Vascular: 2+ radial pulse with fingers warm and well perfused Right shoulder aspirate: LUE -Inspection: skin intact, compartments soft/compressible -Palpation: nontender to palpation of shoulder -ROM: nontender to passive range of motion of shoulder. No crepitation -Motor: Fires EPL/FPL/ EDC/FDS, flexes/extends wrist, flexes/extends elbow -Sensation: SILT in Axillary/Median/Ulnar/Radial distributions -Vascular: 2+ radial pulse with fingers warm and well perfused RLE -Inspection: skin intact, compartments soft/compressible -Palpation: nontender to palpation -ROM: nontender to passive range of motion. Negative log roll. Negative axial load. No crepitation -Motor: Fires EHL/FHL/Gastroc/TA. Holds SLR -Sensation: SILT in DP/SP/Sural/Saphenous/Tibial nerve distributions -Vascular: 2+ DP/ PT pulse with toes warm and well perfused LLE -Inspection: AKA -Palpation: nontender to palpation -ROM: nontender to passive range of motion -Motor: Holds SLR -Sensation: SILT -Vascular: Extremity warm Imaging - XR bilateral shoulders significant for no acute osseous injury. There is questionable effusion ofthe right shoulder. - Please see separate radiographic report for formal read by Radiology Assessment/Plan: 33 year old female with right shoulder pain in setting of MRSA bacteremia with concern for right shoulder septic arthritis. 1. Right shoulder aspirated 2. Weight bearing: WBAT BUE 3. Dispo: Patient admitted to Medicine Service 4. Hold antibiotics until results of aspiration 5. Consider IR consult for other reported soft tissue abscesses 6. Pain Control 7. PT/OT when able 8. NPO 9. Bone health: Please check vitamin D level for all fracture patients 10. If low, please give Vit D3 5000IU daily x 30 days 11. If normal, give Vit D3 1000IU daily 12. Current Dispo: Continue inpatient hospitalization 13. For questions, please contact Ortho Trauma APPs at [phone] or send epic chat to [facility]A. For urgent questions, please page Ortho Trauma service pager at [phone] or through [phone]. 14. Will discuss this patient with the staff physicians of Orthopedic Surgery and update plan accordingly. Please call with any questions or concerns. Graeme Verduzco MD 9:58 PM 02/22/2024 documented in this encounter OR Notes * Brief Op Note - Christiano Conner - 02/25/2024 10:28 AM CDT Vascular & Interventional Radiology Brief Post-Procedure Note Patient: Gay Canales Attending: Tommie Quintanilla MD [employer] Sales Representative: Christiano Conner M4, Rosalee Etienne M3 Diagnosis/Indication: abscess collection in setting of bacteremia Procedure: Ultrasound-guided placement of a one step aspiration needle Findings: Pre-procedure CT showed small abscess collection near the left shoulder joint. A one stepaspiration needle was successfully placed under US guidance. 11 mL of pus was drained during the procedure. Anesthesia: Local (1% Lidocaine) and Moderate sedation (1 mg Versed IV and 50 mcg Fentanyl IV) Additional medications given: None Estimated blood loss: Minimal Specimens: An appropriate amount of fluid was sent for ordered studies. Immediate complications: None Follow-up: 1. Please contact IR with any questions you might have. 2. Change dressing as needed. Time out and final pre-procedure assessment completed immediately prior to start of procedure. Intra-procedure orders and medication record reviewed. Medications and doses administered by staff as verbally ordered. See detailed procedure note with images in PACS. Christiano Valiente Interventional Radiology documented in this encounter Miscellaneous Notes * Clinical References AVS - Geronimo Bruleson MD - 02/28/2024 8:59 AM CDT 05723 MRSA (Methicillin-Resistant Staphylococcus Aureus) Staph (staphylococcus aureus) bacteria are common germs. They are often found on the skin or in thenose. They usually cause no problem. At times they can cause mild skin infections. But sometimes staph causes severe infection. This can happen on the skin, or in the lungs, blood, or other organs ortissues. Some staph infections can be easily treated. This is done with common antibiotic medicine. But 1 type of staph infection is harder to treat. This type is MRSA (methicillin-resistant staphylococcus aureus). MRSA cannot be treated with antibiotics in the penicillin family like methicillin. It has become resistant to this class of antibiotics. This means they no longer work. If not treated correctly, a MRSA infection can be very serious. It can even cause . MRSA is common in hospitals. It's also common in nursing homes and long-term care places. It's now become more common in healthy children. And in adults who live out in the community. This is called community-acquired MRSA. How does MRSA spread? A person may have no symptoms but be a MRSA carrier. Or they may be sick. They can spread MRSA germs to other people both ways: ?? MRSA colonization. This means you have MRSA bacteria living on your body but you are not sick. MRSA is often found in your nostrils or on your skin. A person who is colonized can spread MRSA to others. ?? MRSA infection. This means you are sick from the bacteria. You can spread MRSA to other people. In hospitals and long-term care places, MRSA can spread from patient to patient on the hands of healthcare workers. It can spread on objects, such as cart or door handles and bed rails. Outside healthcare places, MRSA often spreads in these ways: ?? [id number] contact ?? Shared towels ?? Share sports or gym equipment ?? Close contact with an infected or colonized person Who's at risk for MRSA? Anyone can get MRSA. But some things increase the risk. These include: ?? Recent or long hospital stay ?? Having a surgical wound or IV (intravenous) line ?? Having a weak immune system due to a health condition or treatment ?? Living in a group home or long-term care facility ?? Recent antibiotic use ?? Diabetes ?? Kidney dialysis ?? HIV infection ?? Injection drug use or sharing needles ?? Retirement or shelter time ?? Living in any crowded place, such as a college dorm ?? service ?? Sharing sports or gym equipment ?? Sharing razors or other sharp objects What are symptoms of MRSA infection? A MRSA skin infection often starts as small red bumps on the skin. They look like pimples. The small bumps may get larger. They can be swollen, painful, warm to the touch, and filled with fluid (pus). MRSA can cause skin abscesses. Larger bumps are called boils or carbuncles. You may also have a fever. MRSA can also start in other ways. Or it can spread from your skin into your blood through tiny tears in your skin. Once it is in your blood, MRSA can spread deeper into the body. MRSA can cause serious problems, such as infections in: ?? Bones, muscles, and other tissues ?? 1 or both lungs (pneumonia) ?? Surgical wounds ?? The blood (bacteremia and sepsis) ?? The lining of the heart (endocarditis) ?? The urinary tract (bladder and kidneys) Each of these types of serious infections has different symptoms. They can include things like: ?? Pain ?? Tiredness ?? High fever ?? Trouble breathing ?? Dizziness How is MRSA diagnosed? To diagnose an infection: A provider will take a sample of blood, urine, or infected tissue. To diagnose colonization: A provider will use a swab inside the nose. Or they may swab skin in another part of the body. The sample is then sent to a lab. It is tested for MRSA. If the infection affects bone, joint, or other organs, a blood test or biopsy may be done. Imaging tests may be needed. These may include an X-ray or CT scan. How is MRSA treated? A MRSA infection of the skin often needs no antibiotic medicine. This is if the infection is only on the skin and only pimples or a small boil. This can be treated with warm compresses and draining fluid from the boils. If the infection is spreading, MRSA is often treated with antibiotic medicine. This may be done along with draining the boils. The antibiotic may be given by mouth in pill form. Or it may be given into a vein by an IV (intravenous) line. People who test positive for MRSA infection or colonization may go through a process called decolonization. A topical antibiotic is put inside the nose or in the nostrils. This is to kill the bacteria. A special soap may be used to kill bacteria on the skin. The person's family and close contacts will often need to be decolonized in the same way. And their home may need to be treated to kill bacteria. Can MRSA infections be prevented? Hospitals and nursing homes help prevent MRSA with: ?? Handwashing. This is the most important way to prevent the spread of germs. Healthcare workers should scrub their hands for at least 20 seconds with soap and clean, running water before and after treating each person. They need to scrub under the fingernails and between the fingers. They should wash their hands after touching any surface that may have germs on it. If they don't have soap and water, they should use a hand engine cleaner that has at least 60% alcohol. ?? Protective clothing. Healthcare workers and visitors may wear gloves and a gown when entering the room of a person with MRSA. They must remove these items before leaving. ?? Private rooms. People with MRSA infections are placed in private rooms. This is to help prevent the spread of infection. ?? Separate devices. People with MRSA may have their own healthcare devices, such as thermometers and stethoscopes. These items stay in the person's room. ?? Monitoring. Hospitals watch the spread of MRSA. They educate all staff on the best ways to prevent it. If you have MRSA, you can help prevent spreading it. Make sure to: ?? Ask all hospital staff and visitors to wash their hands before and after touching you. Don?t be afraid to speak up! ?? Wash your own hands often with soap and water. Or use a hand engine cleaner with at least 60% alcohol. ?? Ask that stethoscopes and other tools be wiped with alcohol before they're used on you. ?? Get tested for MRSA if you have a skin infection. If you're taking care of someone with MRSA: ?? Wash your hands well with soap and water before and after contact with the person. (See hand-washing tips below.) ?? Wear gloves when changing a bandage or touching a wound. Discard gloves after each use. Then wash your hands well. ?? Wash the person's bed linens, towels, and clothing in hot water with detergent or liquid bleach. Everyone can help prevent MRSA in these ways: ?? Wash your hands often with soap and clean, running water. ?? If you don't have soap and water, use a hand engine cleaner with at least 60% alcohol. ?? Keep cuts and scrapes clean and covered until they heal. ?? Cover your nose and mouth when you cough or sneeze. Wash your hands or use an alcohol-based engine cleaner after. ?? Don't touch the wounds or bandages of other people. ?? Don't share towels, razors, clothing, or sports equipment. Hand-cleaning tips To wash your hands fully: ?? Wet your hands with clean, running water. Apply soap. ?? Rub your hands together. ?? Clean the whole hands, front and back. ?? Clean under your nails, between your fingers, and up the wrists. ?? Do this for at least 20 seconds. ?? Rinse, letting the water run down your fingers, not up your wrists. ?? Dry your hands well with a disposable paper towel. Use a paper towel to turn off the faucet and open the door. If you don?t have soap and water, use a hand engine cleaner that has at least 60% alcohol. To do this: ?? Squeeze about 1 tablespoon of engine cleaner into the palm of your hand. ?? Rub your hands together briskly. ?? Clean the backs of your hands, the palms, between your fingers, and up the wrists. ?? Rub until your hands are dry. Last Reviewed Date: 2024 ?? 0533-7122 [employer]. All rights reserved. This information is not intended as a substitute for professional medical care. Always follow your healthcare professional's instructions. * Clinical References AVS - Sadia Moran, MILLIE/RAFAEL - 02/24/2024 9:45 AM CDT Images from the original note were not included. 85074 Kidney Disease: Getting the Right Amount of Protein Your body needs protein to build and repair muscles and bones and recover from injury. As the body uses protein, a waste product called blood urea nitrogen (BUN) is made. If your kidneys can?t filterwaste from your blood well, the BUN level in your blood goes up. If the level gets too high, you can become sick. Because of this, you need to control the amount of protein you eat each day. Use thishandout to help you. One portion (3 to 4 ounces) of fish, chicken, or red meat is about the size of a deck of playing cards. Measuring protein content You may know how many grams of protein to eat, but most food portions are measured in ounces. Use the chart below to help see the protein content of some common foods. Protein content measurements Protein source Amount in ounces Amount in grams Chicken breast 3 to 4 ounces 21 to 28 grams Chicken thigh 2 to 2.5 ounces 14 to 18 grams Fish 3 ounces 21 grams Pork chop 2 to 2.5 ounces 14 to 18 grams Roast beef 3 ounces 21 grams Steak 3 to 4 ounces 21 to 28 grams Hamburger 3 to 4 ounces 21 to 28 grams Eggs 1 egg 7 grams Cheese 1 ounce 7 grams Most beans 4 ounces 7 to 10 grams Tofu 2 ounces 5 grams Most nuts 2 ounces 5 to 8 grams If you eat too much protein Eating too much protein may cause: ?? Nausea or vomiting ?? Tiredness (fatigue) ?? Mental confusion ?? Increased potassium levels ?? Increased phosphorus levels ?? Increased time on hemodialysis ?? Risk of speeding the loss of kidney function If you eat too little protein Eating too little protein may cause: ?? Muscle loss and weakness ?? Tiredness ?? Weight loss ?? Slower wound healing Talk with your healthcare provider If you?re having trouble getting the right amount of protein, ask your provider to refer you to a dietitian. They can help you learn ways to stay on target. Last Reviewed Date: 2022 ?? 1751-4322 [employer]. All rights reserved. This information is not intended as a substitute for professional medical care. Always follow your healthcare professional's instructions. documented in this encounter Plan of Treatment Upcoming Encounters Date Type Department Care Team (Late st Contact Info) Description 11/22/2024 1:30 PM SAND SCREENER Office Visit [facility] - Infectious Disease [address] [place] [address], [place] [address] Kash Ha MD [address] [place] [id number] Scheduled Orders Name Type Priority Associated Diagnoses Orde r Schedule HEMODIALYSIS INPATIENT Dialysis Routine ON CE for 1 Occurrences starting 03/02/2024 until 03/02/2024 Scheduled Referrals Name Type Priority Associated Diagnoses Order Schedule Ref to Orthopedics [facility] Outpatient Referral Routine Shoulder abscess Ordered: 03/02/2024 Ref to Infectious Disease [facility] Outpatient Referral Routine Shoulder abscess Ordered: 03/02/2024 documented as of this encounter Procedures Procedure Name Priority Date/Time Associated Diagnosis Comments GLUCOSE - POINT OF CARE Routine 03/02/20 5:17 PM CDT GLUCOSE - POINT OF CARE Routine 03/02/20 11:51 AM CDT GLUCOSE - POINT OF CARE Routine 03/02/20 8:16 AM CDT CBC W AUTO DIFFERENTIAL Routine 03/02/20 3:38 AM CDT BASIC METABOLIC PANEL (CALCIUM TOTAL) Routine 03/02/2024 3:38 AM CDT PHOSPHORUS BLOOD Routine 03/02/2024 3:38 AM CDT MAGNESIUM BLOOD Routine 03/02/2024 3:38 AM CDT VANCOMYCIN LEVEL RANDOM Routine 03/02/20 3:38 AM CDT GLUCOSE - POINT OF CARE Routine 03/01/20 8:46 PM CDT GLUCOSE - POINT OF CARE Routine 03/01/20 5:09 PM CDT GLUCOSE - POINT OF CARE Routine 03/01/20 12:11 PM CDT GLUCOSE - POINT OF CARE Routine 03/01/20 7:49 AM CDT GLUCOSE - POINT OF CARE Routine 03/01/20 7:38 AM CDT DIFFERENTIAL MANUAL Routine 03/01/2024 3 :10 AM CDT CBC W AUTO DIFFERENTIAL Routine 03/01/20 3:10 AM CDT BASIC METABOLIC PANEL (CALCIUM TOTAL) Routine 03/01/2024 3:10 AM CDT PHOSPHORUS BLOOD Routine 03/01/2024 3:10 AM CDT MAGNESIUM BLOOD Routine 03/01/2024 3:10 AM CDT GLUCOSE - POINT OF CARE Routine 02/29/20 8:28 PM CDT GLUCOSE - POINT OF CARE Routine 02/29/20 5:55 PM CDT GLUCOSE - POINT OF CARE Routine 02/29/20 11:55 AM CDT CBC W AUTO DIFFERENTIAL Routine 02/29/20 1:27 AM CDT BASIC METABOLIC PANEL (CALCIUM TOTAL) Routine 02/29/2024 1:27 AM CDT PHOSPHORUS BLOOD Routine 02/29/2024 1:27 AM CDT MAGNESIUM BLOOD Routine 02/29/2024 1:27 AM CDT VANCOMYCIN LEVEL RANDOM Routine 02/29/20 1:27 AM CDT GLUCOSE - POINT OF CARE Routine 02/28/20 9:18 PM CDT GLUCOSE - POINT OF CARE Routine 02/28/20 5:30 PM CDT GLUCOSE - POINT OF CARE Routine 02/28/20 11:26 AM CDT GLUCOSE - POINT OF CARE Routine 02/28/20 7:37 AM CDT CBC W AUTO DIFFERENTIAL Routine 02/28/20 2:53 AM CDT BASIC METABOLIC PANEL (CALCIUM TOTAL) Routine 02/28/2024 2:53 AM CDT PHOSPHORUS BLOOD Routine 02/28/2024 2:53 AM CDT MAGNESIUM BLOOD Routine 02/28/2024 2:53 AM CDT VANCOMYCIN LEVEL RANDOM Routine 02/28/20 2:53 AM CDT GLUCOSE - POINT OF CARE Routine 02/28/20 12:04 AM CDT GLUCOSE - POINT OF CARE Routine 02/27/20 8:43 PM CDT GLUCOSE - POINT OF CARE Routine 02/27/20 5:35 PM CDT HEMODIALYSIS INPATIENT Routine 4 3:59 PM CDT GLUCOSE - POINT OF CARE Routine 02/27/20 12:29 PM CDT GLUCOSE - POINT OF CARE Routine 02/27/20 9:21 AM CDT CBC W AUTO DIFFERENTIAL Routine 02/27/20 1:25 AM CDT BASIC METABOLIC PANEL (CALCIUM TOTAL) Routine 02/27/2024 1:24 AM CDT PHOSPHORUS BLOOD Routine 02/27/2024 1:24 AM CDT MAGNESIUM BLOOD Routine 02/27/2024 1:24 AM CDT GLUCOSE - POINT OF CARE Routine 02/27/20 12:02 AM CDT HEMODIALYSIS INPATIENT Routine 4 4:58 PM CDT GLUCOSE - POINT OF CARE Routine 02/26/20 4:20 PM CDT HEMODIALYSIS INPATIENT Routine 4 7:01 AM CDT GLUCOSE - POINT OF CARE Routine 02/26/20 4:56 AM CDT CBC W AUTO DIFFERENTIAL Routine 02/26/20 1:37 AM CDT BASIC METABOLIC PANEL (CALCIUM TOTAL) Routine 02/26/2024 1:37 AM CDT PHOSPHORUS BLOOD Routine 02/26/2024 1:37 AM CDT MAGNESIUM BLOOD Routine 02/26/2024 1:37 AM CDT VANCOMYCIN LEVEL RANDOM Routine 02/26/20 1:37 AM CDT GLUCOSE - POINT OF CARE Routine 02/26/20 12:10 AM CDT GLUCOSE - POINT OF CARE Routine 02/25/20 8:09 PM CDT GLUCOSE - POINT OF CARE Routine 02/25/20 5:52 PM CDT GLUCOSE - POINT OF CARE Routine 02/25/20 12:25 PM CDT IR CENTRAL LINE REPLACE Routine 02/25/20 11:21 AM CDT ESRD (end stage renal disease) (HCC) CT GUIDED NEEDLE PLACEMENT Routine 02/25/2024 10:27 AM CDT Shoulder abscess CULTURE FUNGUS OTHER+FUNGUS SMEAR Routine 02/25/2024 10:24 AM CDT CULTURE WOUND+GRAM STAIN Routine 02/25/2024 10:24 AM CDT CULTURE AFB+SMEAR Routine 02/25/2024 10: 24 AM CDT CULTURE ANAEROBE Routine 02/25/2024 10:2 4 AM CDT GLUCOSE - POINT OF CARE Routine 02/25/20 8:37 AM CDT GLUCOSE - POINT OF CARE Routine 02/25/20 4:54 AM CDT PTH INTACT W/O CALCIUM AM Draw 1:10 AM CDT VITAMIN D 25-HYDROXY AM Draw 02/25/2024 1:10 AM CDT CBC W AUTO DIFFERENTIAL Routine 02/25/20 1:10 AM CDT BASIC METABOLIC PANEL (CALCIUM TOTAL) Routine 02/25/2024 1:10 AM CDT PHOSPHORUS BLOOD Routine 02/25/2024 1:10 AM CDT MAGNESIUM BLOOD Routine 02/25/2024 1:10 AM CDT FOLATE Routine 02/25/2024 1:10 AM CDT VITAMIN B12 AM Draw 02/25/2024 1:10 AM CDT IRON + TRANSFERRIN PANEL Routine 02/25/2024 1:10 AM CDT FERRITIN Routine 02/25/2024 1:10 AM CDT CHLAMYDIA + GC AMPLIFIED PROBE Routine 02/24/2024 11:14 PM CDT URINE MICROSCOPIC ONLY REFLEX TO CULTURE Routine 02/24/2024 11:06 PM CDT URINALYSIS REFLEX MICROSCOPIC REFLEX CULTURE Routine 02/24/2024 11:06 PM CDT CULTURE URINE Routine 02/24/2024 11:06 PM CDT GLUCOSE - POINT OF CARE Routine 02/24/20 7:22 PM CDT GLUCOSE - POINT OF CARE Routine 02/24/20 12:27 PM CDT HIV-1 HIV-2 ANTIBODY + HIV P24 AG PANEL STAT 02/24/2024 8:57 AM CDT GLUCOSE - POINT OF CARE Routine 02/24/20 6:26 AM CDT GLUCOSE - POINT OF CARE Routine 02/24/20 1:43 AM CDT CBC W AUTO DIFFERENTIAL Routine 02/24/20 1:30 AM CDT BASIC METABOLIC PANEL (CALCIUM TOTAL) Routine 02/24/2024 1:30 AM CDT PHOSPHORUS BLOOD Routine 02/24/2024 1:30 AM CDT MAGNESIUM BLOOD Routine 02/24/2024 1:30 AM CDT HEPATITIS B SURFACE ANTIBODY STAT 02/24/2024 1:30 AM CDT GLUCOSE - POINT OF CARE Routine 02/23/20 5:58 PM CDT XR FOOT RIGHT 3VW OR MORE Routine 02/23/2024 3:25 PM CDT 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, unspecified ulcer stage (HCC) HEMODIALYSIS INPATIENT Routine 2:54 PM CDT GLUCOSE - POINT OF CARE Routine 02/23/20 12:33 PM CDT SYPHILIS ANTIBODY CASCADING REFLEX AM Draw 02/23/2024 7:37 AM CDT C-REACTIVE PROTEIN AM Draw 02/23/2024 7: 37 AM CDT HEMOGLOBIN A1C Routine 02/23/2024 7:37 AM CDT ERYTHROCYTE SEDIMENTATION RATE AM Draw 02/23/2024 7:37 AM CDT CBC W AUTO DIFFERENTIAL Routine 02/23/20 7:37 AM CDT BASIC METABOLIC PANEL (CALCIUM TOTAL) Routine 02/23/2024 7:37 AM CDT PHOSPHORUS BLOOD Routine 02/23/2024 7:37 AM CDT MAGNESIUM BLOOD Routine 02/23/2024 7:37 AM CDT HEPATITIS B SURFACE ANTIGEN W RFLX CONFIRMATION STAT 02/23/2024 7:37 AM CDT VANCOMYCIN LEVEL RANDOM Timed 02/23/20 7:37 AM CDT GLUCOSE - POINT OF CARE Routine 02/23/20 5:10 AM CDT URINALYSIS REFLEX TO MICROSCOPIC NO CULTURE Routine 02/23/2024 12:39 AM CDT GLUCOSE - POINT OF CARE Routine 02/23/20 12:11 AM CDT MRSA DNA PCR STAT 02/22/2024 11:59 PM CDT CRYSTAL INDENTIFICATION SYNOVIAL FLUID Routine 02/22/2024 10:56 PM CDT PATHOLOGY SMEAR BODY FLUID Routine 02/22/2024 10:56 PM CDT DIFFERENTIAL MANUAL FLUID STAT 02/22/2024 10:55 PM CDT CELL COUNT W DIFFERENTIAL FLUID STAT 02/22/2024 10:55 PM CDT CULTURE FUNGUS OTHER+FUNGUS SMEAR STAT 02/22/2024 10:43 PM CDT CULTURE FLUID+GRAM STAIN STAT 02/22/2024 10:43 PM CDT CULTURE AFB+SMEAR STAT 02/22/2024 10: 43 PM CDT CULTURE GC STAT 02/22/2024 10:43 PM CDT CULTURE ANAEROBE STAT 02/22/2024 10:4 3 PM CDT CULTURE BLOOD STAT 02/22/2024 10:23 PM CDT PT-INR [facility] STAT 02/22/2024 10:14 PM CDT CULTURE BLOOD STAT 02/22/2024 10:14 PM CDT DIFFERENTIAL MANUAL STAT 02/22/2024 1 0:14 PM CDT CBC W AUTO DIFFERENTIAL STAT 02/22/20 10:14 PM CDT COMPREHENSIVE METABOLIC PANEL STAT 02/22/2024 10:14 PM CDT HCG BETA BLOOD QUANTITATIVE STAT 02/22/2024 10:14 PM CDT PHOSPHORUS BLOOD Routine 02/22/2024 10:1 4 PM CDT MAGNESIUM BLOOD Routine 02/22/2024 10:14 PM CDT LACTIC ACID BLOOD STAT 02/22/2024 10: 14 PM CDT XR SHOULDER RIGHT 2VW OR MORE STAT 02/22/2024 10:06 PM CDT 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) XR SHOULDER LEFT 2VW OR MORE STAT 02/22/2024 10:06 PM CDT 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) XR CHEST 1VW PORTABLE STAT 02/22/2024 9:23 PM CDT Pneumonia due to infectious organism, unspecified laterality, unspecified part of lung documented in this encounter Results * GLUCOSE - POINT OF CARE (03/02/2024 5:17 PM CDT) Glucose WB/POC 86 70 - 115 mg/dL 03/02/2024 5:20 PM CDT [facility] Specimen Type Cap Fingerstick 2023 5:20 PM CDT [facility] Blood BLOOD SPECIMEN / Unknown 03/02/2024 5:17 PM CDT 03/02/2024 5:20 PM CDT Martine Morrissey MD LAB - POINT OF CARE ORDERABLES [address] [address], [place] [phone] * (ABNORMAL) GLUCOSE - POINT OF CARE (03/02/2024 11:51 AM CDT) Glucose WB/POC 131(H) 70 - 115 mg/dL 03/02/2024 12:55 PM CDT [facility] Specimen Type Cap Fingerstick 2023 12:55 PM CDT [facility] Blood BLOOD SPECIMEN / Unknown 03/02/2024 11:51 AM CDT 03/02/2024 12:55 PM CDT Martine Morrissey MD LAB - POINT OF CARE ORDERABLES Performing Organization Address City/[facility]/ZIP Co de Phone Number [address] [address], [place] [phone] * GLUCOSE - POINT OF CARE (03/02/2024 8:16 AM CDT) Glucose WB/POC 92 70 - 115 mg/dL 03/02/2024 8:21 AM CDT [facility] Specimen Type Cap Fingerstick 2023 8:21 AM CDT [facility] Blood BLOOD SPECIMEN / Unknown 03/02/2024 8:16 AM CDT 03/02/2024 8:21 AM CDT Martine Morrissey MD LAB - POINT OF CARE ORDERABLES [address] [address], [place] [phone] * (ABNORMAL) CBC W AUTO DIFFERENTIAL (03/02/2024 3:38 AM CDT) WBC 14.0(H) 4.0 - 10.7 x10E9/L 03/02/2024 4:07 AM [facility] RBC Count 3.03(L) 3.90 - 5.20 x10E12/L 03/02/2024 4:07 AM [facility] Hemoglobin 8.8(L) 11.9 - 15.8 g/dL 03/02/2024 4:07 AM [facility] Hematocrit 29.2(L) 34.8 - 46.1 % 03/02/2024 4:07 AM [facility] MCV 96.4 80.0 - 98.0 fL 03/02/2024 4:07 AM [facility] MCH 29.0 26.7 - 33.6 pg 03/02/2024 4:07 AM [facility] MCHC 30.1(L) 31.7 - 36.3 g/dL 03/02/2024 4:07 AM [facility] RDW-CV 14.3 11.3 - 14.8 % 03/02/2024 4:07 AM [facility] Platelet Count 595(H) 150 - 420 x10E9/L 03/02/2024 4:07 AM [facility] MPV 8.9 7.8 - 11.4 fL 03/02/2024 4:07 AM [facility] Neutrophil % 61.4 41.0 - 74.0 % 03/02/2024 4:07 AM [facility] Lymphocyte % 19.6 17.0 - 47.0 % 03/02/2024 4:07 AM [facility] Monocyte % 8.5 3.0 - 11.0 % 03/02/2024 4:07 AM [facility] Eosinophil % 9.6(H) 0.0 - 7.0 % 03/02/2024 4:07 AM [facility] Basophil % 0.4 0.0 - 1.6 % 03/02/2024 4:07 AM [facility] Immature Granulocytes % 0.5 0.0 - 1.0 % 03/02/2024 4:07 AM [facility] Neutrophil Absolute 8.63(H) 1.60 - 7.50 x10E9/L 03/02/2024 4:07 AM CDT [facility] Lymphocyte Absolute 2.75 1.00 - 4.40 x10E9/L 03/02/2024 4:07 AM CDT [facility] Monocyte Absolute 1.19(H) 0.15 - 1.00 x10E9/L 03/02/2024 4:07 AM CDT [facility] Eosinophil Absolute 1.35(H) 0.00 - 0.60 x10E9/L 03/02/2024 4:07 AM CDT [facility] Basophil Absolute 0.05 0.00 - 0.13 x10E9/L 03/02/2024 4:07 AM CDT [facility] Blood BLOOD SPECIMEN / Unknown Venipuncture / Unknown 03/02/2024 3:38 AM CDT 03/02/2024 4:03 AM CDT Justyn Galvez DO LAB - HEMATOLOGY ORD ERABLES [address] [address], [facility] [phone] * MAGNESIUM BLOOD (03/02/2024 3:38 AM CDT) Magnesium 2.4 1.6 - 2.6 mg/dL 03/02/2024 4:31 AM CDT [facility] Blood BLOOD SPECIMEN / Unknown Venipuncture / Unknown 03/02/2024 3:38 AM CDT 03/02/2024 4:03 AM CDT Justyn Galvez DO LAB - CHEMISTRY ORDE RABLES [address] [address], [facility] [phone] * (ABNORMAL) PHOSPHORUS BLOOD (03/02/2024 3:38 AM CDT) Phosphorus 7.3(H) 2.9 - 5.1 mg/dL 03/02/2024 4:31 AM CDT [facility] Blood BLOOD SPECIMEN / Unknown Venipuncture / Unknown 03/02/2024 3:38 AM CDT 03/02/2024 4:03 AM CDT Justyn Galvez LAB - CHEMISTRY ORDE WADE [facility] [address] [place] [address], [facility] [phone] * (ABNORMAL) BASIC METABOLIC PANEL (CALCIUM TOTAL) (03/02/2024 3:38 AM CDT) BUN 39(H) 7 - 26 mg/dL 03/02/2024 4:31 AM [facility] Creatinine 7.43(H) 0.56 - 0.96 mg/dL 03/02/2024 4:31 AM [facility] Sodium 137 136 - 145 mmol/L 03/02/2024 4:31 AM [facility] Potassium 5.5(H) 3.5 - 4.5 mmol/L 03/02/2024 4:31 AM [facility] Chloride 102 98 - 107 mmol/L 03/02/2024 4:31 AM [facility] CO2 25 22 - 29 mmol/L 03/02/2024 4:31 AM [facility] Glucose 92 70 - 115 mg/dL 03/02/2024 4:31 AM [facility] Calcium 8.8 8.4 - 10.2 mg/dL 03/02/2024 4:31 AM [facility] Anion Gap 10 6 - 16 03/02/2024 4:31 AM [facility] BUN/Creatinine Ratio 5(L) 7 - 23 03/02/2024 4:31 AM [facility] Osmolality Calculated 293 275 - 295 mOsm/kg 03/02/2024 4:31 AM [facility] eGFR by CKD-EPI 7(L) >=90 mL/min/1.7 3 m2 03/02/2024 4:31 AM [facility] Blood BLOOD SPECIMEN / Unknown Venipuncture / Unknown 03/02/2024 3:38 AM CDT 03/02/2024 4:03 AM CDT Justyn Galvez DO LAB - CHEMISTRY ORDE WADE [address] [address], [place] [phone] * VANCOMYCIN LEVEL RANDOM (03/02/2024 3:38 AM CDT) Vancomycin Random 29.0 Therapeutic Ranges not established for random specimens ug/mL 03/02/2024 4:22 AM CDT [facility] Blood BLOOD SPECIMEN / Unknown Venipuncture / Unknown 03/02/2024 3:38 AM CDT 03/02/2024 3:58 AM CDT Narrative [facility] - 03/02/2024 4:22 AM CDT See institution protocol. Geronimo Burleson MD LAB - CHEMISTR Y ORDERABLES Performing Organization Address City/[facility]/ZIP Co de Phone Number [address] [address], [place] [phone] * (ABNORMAL) GLUCOSE - POINT OF CARE (03/01/2024 8:46 PM CDT) Glucose WB/POC 130(H) 70 - 115 mg/dL 03/01/2024 8:46 PM CDT [facility] Specimen Type Cap Fingerstick 2023 8:46 PM CDT [facility] Blood BLOOD SPECIMEN / Unknown 03/01/2024 8:46 PM CDT 03/01/2024 8:46 PM CDT Geronimo Burleson MD LAB - POINT OF CARE ORDERABLES [address] [address], [place] [phone] * (ABNORMAL) GLUCOSE - POINT OF CARE (03/01/2024 5:09 PM CDT) Glucose WB/POC 122(H) 70 - 115 mg/dL 03/01/2024 5:14 PM CDT [facility] Specimen Type Cap Fingerstick 2023 5:14 PM CDT [facility] Blood BLOOD SPECIMEN / Unknown 03/01/2024 5:09 PM CDT 03/01/2024 5:14 PM CDT Geronimo Burleson MD LAB - POINT OF CARE ORDERABLES Performing Organization Address City/[facility]/ZIP Co de Phone Number [address] [address], [place] [phone] * (ABNORMAL) GLUCOSE - POINT OF CARE (03/01/2024 12:11 PM CDT) Glucose WB/POC 150(H) 70 - 115 mg/dL 03/01/2024 12:16 PM CDT [facility] Specimen Type Cap Fingerstick 2023 12:16 PM CDT [facility] Blood BLOOD SPECIMEN / Unknown 03/01/2024 12:11 PM CDT 03/01/2024 12:16 PM CDT Geronimo Burleson MD LAB - POINT OF CARE ORDERABLES Performing Organization Address [facility]/ZIP Co de Phone Number [address] [address], [place] [phone] * GLUCOSE - POINT OF CARE (03/01/2024 7:49 AM CDT) Glucose WB/POC 105 70 - 115 mg/dL 03/01/2024 7:54 AM CDT [facility] Specimen Type Cap Fingerstick 2023 7:54 AM CDT [facility] Blood BLOOD SPECIMEN / Unknown 03/01/2024 7:49 AM CDT 03/01/2024 7:54 AM CDT Geronimo Burleson MD LAB - POINT OF CARE ORDERABLES Performing Organization Address City/[facility]/ZIP Co de Phone Number [address] [address], [place] [phone] * GLUCOSE - POINT OF CARE (03/01/2024 7:38 AM CDT) Glucose WB/POC 113 70 - 115 mg/dL 03/01/2024 7:48 AM [facility] Specimen Type Cap Fingerstick 2023 7:48 AM [facility] Blood BLOOD SPECIMEN / Unknown 03/01/2024 7:38 AM CDT 03/01/2024 7:48 AM CDT Geronimo Burleson MD LAB - POINT OF CARE ORDERABLES [facility] [address] [place] [address], [facility] [phone] * (ABNORMAL) DIFFERENTIAL MANUAL (03/01/2024 3:10 AM CDT) Pathologist [facility] Neutrophil % 72 41 - 74 % 03/01/2024 4:12 AM [facility] Lymphocyte % 12(L) 17 - 47 % 03/01/2024 4:12 AM [facility] Monocyte % 7 3 - 11 % 03/01/2024 4:12 AM [facility] Eosinophil % 8(H) 0 - 7 % 03/01/2024 4:12 AM [facility] Basophil % 1 0 - 2 % 03/01/2024 4:12 AM [facility] Neutrophil Absolute 10.15(H) 1.60 - 7.50 x10E9/L 03/01/2024 4:12 AM [facility] Lymphocyte Absolute 1.69 1.00 - 4.40 x10E9/L 03/01/2024 4:12 AM [facility] Monocyte Absolute 0.99 0.15 - 1.00 x10E9/L 03/01/2024 4:12 AM [facility] Eosinophil Absolute 1.13(H) 0.00 - 0.60 x10E9/L 03/01/2024 4:12 AM [facility] Basophil Absolute 0.14(H) 0.00 - 0.13 x10E9/L 03/01/2024 4:12 AM [facility] RBC Morphology REVIEWED 03/01/2024 4:12 AM [facility] Blood BLOOD SPECIMEN / Unknown Venipuncture / Unknown 03/01/2024 3:10 AM CDT 03/01/2024 3:25 AM CDT Justyn Galvez DO LAB - HEMATOLOGY ORD ERABLES Performing Organization Address City/[facility]/ZIP Co de Phone Number [facility] [address] [place] [address], [facility] [phone] * (ABNORMAL) CBC W AUTO DIFFERENTIAL (03/01/2024 3:10 AM CDT) WBC 14.1(H) 4.0 - 10.7 x10E9/L 03/01/2024 4:12 AM [facility] RBC Count 3.02(L) 3.90 - 5.20 x10E12/L 03/01/2024 4:12 AM [facility] Hemoglobin 9.0(L) 11.9 - 15.8 g/dL 03/01/2024 4:12 AM [facility] Hematocrit 28.7(L) 34.8 - 46.1 % 03/01/2024 4:12 AM [facility] MCV 95.0 80.0 - 98.0 fL 03/01/2024 4:12 AM [facility] MCH 29.8 26.7 - 33.6 pg 03/01/2024 4:12 AM [facility] MCHC 31.4(L) 31.7 - 36.3 g/dL 03/01/2024 4:12 AM [facility] RDW-CV 13.9 11.3 - 14.8 % 03/01/2024 4:12 AM [facility] Platelet Count 541(H) 150 - 420 x10E9/L 03/01/2024 4:12 AM [facility] MPV 8.8 7.8 - 11.4 fL 03/01/2024 4:12 AM [facility] Blood BLOOD SPECIMEN / Unknown Venipuncture / Unknown 03/01/2024 3:10 AM CDT 03/01/2024 3:25 AM CDT Justyn Galvez DO LAB - HEMATOLOGY ORD ERABLES [facility] [address] [place] [address], [facility] [phone] * MAGNESIUM BLOOD (03/01/2024 3:10 AM CDT) Magnesium 2.1 1.6 - 2.6 mg/dL 03/01/2024 3:55 AM CDT [facility] Blood BLOOD SPECIMEN / Unknown Venipuncture / Unknown 03/01/2024 3:10 AM CDT 03/01/2024 3:25 AM CDT Justyn Galvez DO LAB - CHEMISTRY ORDE WADE Performing Organization Address City/[facility]/ZIP Co de Phone Number [facility] [address] [place] [address], [place] [phone] * (ABNORMAL) PHOSPHORUS BLOOD (03/01/2024 3:10 AM CDT) Phosphorus 6.1(H) 2.9 - 5.1 mg/dL 03/01/2024 3:55 AM CDT [facility] Blood BLOOD SPECIMEN / Unknown Venipuncture / Unknown 03/01/2024 3:10 AM CDT 03/01/2024 3:25 AM CDT Justyn Galvez DO LAB - CHEMISTRY ORDE WADE [address] [address], [place] [phone] * (ABNORMAL) BASIC METABOLIC PANEL (CALCIUM TOTAL) (03/01/2024 3:10 AM CDT) BUN 28(H) 7 - 26 mg/dL 03/01/2024 4:02 AM CDT [facility] Creatinine 5.80(H) 0.56 - 0.96 mg/dL 03/01/2024 4:02 AM [facility] Sodium 135(L) 136 - 145 mmol/L 03/01/2024 4:02 AM [facility] Potassium 4.9(H) 3.5 - 4.5 mmol/L 03/01/2024 4:02 AM [facility] Chloride 106 98 - 107 mmol/L 03/01/2024 4:02 AM [facility] CO2 21(L) 22 - 29 mmol/L 03/01/2024 4:02 AM [facility] Glucose 112 70 - 115 mg/dL 03/01/2024 4:02 AM [facility] Calcium 8.8 8.4 - 10.2 mg/dL 03/01/2024 4:02 AM [facility] Anion Gap 8 6 - 16 03/01/2024 4:02 AM [facility] BUN/Creatinine Ratio 5(L) 7 - 23 03/01/2024 4:02 AM [facility] Osmolality Calculated 286 275 - 295 mOsm/kg 03/01/2024 4:02 AM [facility] eGFR by CKD-EPI 9(L) >=90 mL/min/1.7 3 m2 03/01/2024 4:02 AM [facility] Blood BLOOD SPECIMEN / Unknown Venipuncture / Unknown 03/01/2024 3:10 AM CDT 03/01/2024 3:25 AM T Justyn Galvez DO LAB - CHEMISTRY DIVINA OLVERA [facility] [address] [place] [address], [facility] [phone] * (ABNORMAL) GLUCOSE - POINT OF CARE (02/29/2024 8:28 PM CDT) Glucose WB/POC 177(H) 70 - 115 mg/dL 02/29/2024 8:43 PM [facility] Specimen Type Cap Fingerstick 2023 8:43 PM [facility] Blood BLOOD SPECIMEN / Unknown 02/29/2024 8:28 PM CDT 02/29/2024 8:43 PM CDT Geronimo Burleson MD LAB - POINT OF CARE ORDERABLES [address] [address], [place] [phone] * (ABNORMAL) GLUCOSE - POINT OF CARE (02/29/2024 5:55 PM CDT) Glucose WB/POC 133(H) 70 - 115 mg/dL 02/29/2024 5:58 PM CDT [facility] Specimen Type Venous 02/29/2024 5:58 PM CDT [facility] Blood BLOOD SPECIMEN / Unknown 02/29/2024 5:55 PM CDT 02/29/2024 5:58 PM CDT Geronimo Burleson MD LAB - POINT OF CARE ORDERABLES Performing Organization Address [facility]/ZIP Co de Phone Number [address] [address], [place] [phone] * (ABNORMAL) GLUCOSE - POINT OF CARE (02/29/2024 11:55 AM CDT) Glucose WB/POC 122(H) 70 - 115 mg/dL 02/29/2024 11:56 AM CDT [facility] Specimen Type Venous 02/29/2024 11:56 AM CDT [facility] Blood BLOOD SPECIMEN / Unknown 02/29/2024 11:55 AM CDT 02/29/2024 11:56 AM CDT Geronimo Burleson MD LAB - POINT OF CARE ORDERABLES [address] [address], [place] [phone] * (ABNORMAL) CBC W AUTO DIFFERENTIAL (02/29/2024 1:27 AM CDT) WBC 14.0(H) 4.0 - 10.7 x10E9/L 02/29/2024 2:06 AM [facility] RBC Count 3.09(L) 3.90 - 5.20 x10E12/L 02/29/2024 2:06 AM [facility] Hemoglobin 9.0(L) 11.9 - 15.8 g/dL 02/29/2024 2:06 AM [facility] Hematocrit 29.5(L) 34.8 - 46.1 % 02/29/2024 2:06 AM [facility] MCV 95.5 80.0 - 98.0 fL 02/29/2024 2:06 AM [facility] MCH 29.1 26.7 - 33.6 pg 02/29/2024 2:06 AM [facility] MCHC 30.5(L) 31.7 - 36.3 g/dL 02/29/2024 2:06 AM [facility] RDW-CV 14.1 11.3 - 14.8 % 02/29/2024 2:06 AM [facility] Platelet Count 534(H) 150 - 420 x10E9/L 02/29/2024 2:06 AM [facility] MPV 9.0 7.8 - 11.4 fL 02/29/2024 2:06 AM [facility] Neutrophil % 59.4 41.0 - 74.0 % 02/29/2024 2:06 AM [facility] Lymphocyte % 20.0 17.0 - 47.0 % 02/29/2024 2:06 AM [facility] Monocyte % 8.4 3.0 - 11.0 % 02/29/2024 2:06 AM [facility] Eosinophil % 10.6(H) 0.0 - 7.0 % 02/29/2024 2:06 AM [facility] Basophil % 0.5 0.0 - 1.6 % 02/29/2024 2:06 AM [facility] Immature Granulocytes % 1.1(H) 0.0 - 1.0 % 02/29/2024 2:06 AM [facility] Neutrophil Absolute 8.30(H) 1.60 - 7.50 x10E9/L 02/29/2024 2:06 AM T [facility] Lymphocyte Absolute 2.80 1.00 - 4.40 x10E9/L 02/29/2024 2:06 AM [facility] Monocyte Absolute 1.17(H) 0.15 - 1.00 x10E9/L 02/29/2024 2:06 AM T [facility] Eosinophil Absolute 1.48(H) 0.00 - 0.60 x10E9/L 02/29/2024 2:06 AM T [facility] Basophil Absolute 0.07 0.00 - 0.13 x10E9/L 02/29/2024 2:06 AM [facility] Blood BLOOD SPECIMEN / Unknown Lab Venipuncture / Unknown 02/29/2024 1:27 AM CDT 02/29/2024 2:00 AM CDT Justyn Galvez DO LAB - HEMATOLOGY ORD ERABLES [address] [address], [facility] [phone] * MAGNESIUM BLOOD (02/29/2024 1:27 AM CDT) Magnesium 2.0 1.6 - 2.6 mg/dL 02/29/2024 2:36 AM CDT [facility] Blood BLOOD SPECIMEN / Unknown Lab Venipuncture / Unknown 02/29/2024 1:27 AM CDT 02/29/2024 2:00 AM CDT Justyn Galvez DO LAB - CHEMISTRY ORDE RABLES [address] [address], [facility] [phone] * PHOSPHORUS BLOOD (02/29/2024 1:27 AM CDT) Phosphorus 4.1 2.9 - 5.1 mg/dL 02/29/2024 2:36 AM [facility] Blood BLOOD SPECIMEN / Unknown Lab Venipuncture / Unknown 02/29/2024 1:27 AM CDT 02/29/2024 2:00 AM CDT Justyn Galvez LAB - CHEMISTRY DIVINA OLVERA Performing Organization Address City/[facility]/ZIP Co de Phone Number [facility] [address] [place] [address], [facility] [phone] * (ABNORMAL) BASIC METABOLIC PANEL (CALCIUM TOTAL) (02/29/2024 1:27 AM CDT) BUN 16 7 - 26 mg/dL 02/29/2024 2:36 AM [facility] Creatinine 3.73(H) 0.56 - 0.96 mg/dL 02/29/2024 2:36 AM [facility] Sodium 135(L) 136 - 145 mmol/L 02/29/2024 2:36 AM [facility] Potassium 4.4 3.5 - 4.5 mmol/L 02/29/2024 2:36 AM [facility] Chloride 104 98 - 107 mmol/L 02/29/2024 2:36 AM [facility] CO2 24 22 - 29 mmol/L 02/29/2024 2:36 AM [facility] Glucose 141(H) 70 - 115 mg/dL 02/29/2024 2:36 AM [facility] Calcium 8.3(L) 8.4 - 10.2 mg/dL 02/29/2024 2:36 AM [facility] Anion Gap 7 6 - 16 02/29/2024 2:36 AM [facility] BUN/Creatinine Ratio 4(L) 7 - 23 02/29/2024 2:36 AM [facility] Osmolality Calculated 284 275 - 295 mOsm/kg 02/29/2024 2:36 AM [facility] eGFR by CKD-EPI 16(L) >=90 mL/min/1.7 3 m2 02/29/2024 2:36 AM [facility] Blood BLOOD SPECIMEN / Unknown Lab Venipuncture / Unknown 02/29/2024 1:27 AM CDT 02/29/2024 2:00 AM CDT Justyn Galvez DO LAB - CHEMISTRY [facility] [address] [place] [address], [place] [phone] * VANCOMYCIN LEVEL RANDOM (02/29/2024 1:27 AM CDT) [facility] Vancomycin Random 14.9 Therapeutic Ranges not established for random specimens ug/mL 02/29/2024 2:24 AM CDT [facility] Blood BLOOD SPECIMEN / Unknown Lab Venipuncture / Unknown 02/29/2024 1:27 AM CDT 02/29/2024 1:52 AM CDT Narrative [facility] - 02/29/2024 2:24 AM CDT See institution protocol. Geronimo Burleson MD LAB - CHEMISTR Y ORDERABLES [address] [address], [place] [phone] * (ABNORMAL) GLUCOSE - POINT OF CARE (02/28/2024 9:18 PM CDT) [facility] Glucose WB/POC 130(H) 70 - 115 mg/dL 02/28/2024 9:24 PM CDT [facility] Specimen Type Cap Fingerstick 2023 9:24 PM CDT [facility] Blood BLOOD SPECIMEN / Unknown 02/28/2024 9:18 PM CDT 02/28/2024 9:24 PM CDT Geronimo Burleson MD LAB - POINT OF CARE ORDERABLES [address] [address], [place] [phone] * GLUCOSE - POINT OF CARE (02/28/2024 5:30 PM CDT) Glucose WB/POC 103 70 - 115 mg/dL 02/28/2024 5:37 PM CDT [facility] Specimen Type Cap Fingerstick 2023 5:37 PM CDT [facility] Blood BLOOD SPECIMEN / Unknown 02/28/2024 5:30 PM CDT 02/28/2024 5:37 PM CDT Geronimo Burleson MD LAB - POINT OF CARE ORDERABLES Performing Organization Address City/[facility]/ZIP Co de Phone Number [address] [address], [place] [phone] * (ABNORMAL) GLUCOSE - POINT OF CARE (02/28/2024 11:26 AM CDT) Glucose WB/POC 121(H) 70 - 115 mg/dL 02/28/2024 11:31 AM CDT [facility] Specimen Type Cap Fingerstick 2023 11:31 AM CDT [facility] Blood BLOOD SPECIMEN / Unknown 02/28/2024 11:26 AM CDT 02/28/2024 11:31 AM CDT Geronimo Burleson MD LAB - POINT OF CARE ORDERABLES Performing Organization Address [facility] Co de Phone Number [address] [address], [place] [phone] * (ABNORMAL) GLUCOSE - POINT OF CARE (02/28/2024 7:37 AM CDT) Glucose WB/POC 116(H) 70 - 115 mg/dL 02/28/2024 7:42 AM CDT [facility] Specimen Type Cap Fingerstick 2023 7:42 AM CDT [facility] Blood BLOOD SPECIMEN / Unknown 02/28/2024 7:37 AM CDT 02/28/2024 7:42 AM CDT Geronimo Burleson MD LAB - POINT OF CARE ORDERABLES [facility] [address] [place] [address], [facility] [phone] * (ABNORMAL) CBC W AUTO DIFFERENTIAL (02/28/2024 2:53 AM CDT) WBC 15.4(H) 4.0 - 10.7 x10E9/L 02/28/2024 3:41 AM [facility] RBC Count 3.02(L) 3.90 - 5.20 x10E12/L 02/28/2024 3:41 AM [facility] Hemoglobin 8.9(L) 11.9 - 15.8 g/dL 02/28/2024 3:41 AM [facility] Hematocrit 29.0(L) 34.8 - 46.1 % 02/28/2024 3:41 AM [facility] MCV 96.0 80.0 - 98.0 fL 02/28/2024 3:41 AM [facility] MCH 29.5 26.7 - 33.6 pg 02/28/2024 3:41 AM [facility] MCHC 30.7(L) 31.7 - 36.3 g/dL 02/28/2024 3:41 AM [facility] RDW-CV 14.1 11.3 - 14.8 % 02/28/2024 3:41 AM [facility] Platelet Count 501(H) 150 - 420 x10E9/L 02/28/2024 3:41 AM [facility] MPV 9.0 7.8 - 11.4 fL 02/28/2024 3:41 AM [facility] Neutrophil % 65.0 41.0 - 74.0 % 02/28/2024 3:41 AM [facility] Lymphocyte % 15.4(L) 17.0 - 47.0 % 02/28/2024 3:41 AM [facility] Monocyte % 8.0 3.0 - 11.0 % 02/28/2024 3:41 AM [facility] Eosinophil % 9.9(H) 0.0 - 7.0 % 02/28/2024 3:41 AM CDT [facility] Basophil % 0.5 0.0 - 1.6 % 02/28/2024 3:41 AM [facility] [place] Immature Granulocytes % 1.2(H) 0.0 - 1.0 % 02/28/2024 3:41 AM [facility] Neutrophil Absolute 10.02(H) 1.60 - 7.50 x10E9/L 02/28/2024 3:41 AM T [facility] Lymphocyte Absolute 2.37 1.00 - 4.40 x10E9/L 02/28/2024 3:41 AM [facility] [place] Monocyte Absolute 1.24(H) 0.15 - 1.00 x10E9/L 02/28/2024 3:41 AM [facility] [place] Eosinophil Absolute 1.53(H) 0.00 - 0.60 x10E9/L 02/28/2024 3:41 AM [facility] [place] Basophil Absolute 0.07 0.00 - 0.13 x10E9/L 02/28/2024 3:41 AM T [facility] Blood BLOOD SPECIMEN / Unknown Lab Venipuncture / Unknown 02/28/2024 2:53 AM CDT 02/28/2024 3:34 AM CDT Justyn Galvez DO LAB - HEMATOLOGY ORD ERABLES [address] [address], [facility] [phone] * MAGNESIUM BLOOD (02/28/2024 2:53 AM CDT) Magnesium 2.0 1.6 - 2.6 mg/dL 02/28/2024 4:20 AM CDT [facility] Blood BLOOD SPECIMEN / Unknown Lab Venipuncture / Unknown 02/28/2024 2:53 AM CDT 02/28/2024 3:44 AM CDT Justny Galvez DO LAB - CHEMISTRY ORDE WADE [address] [place] [address], [facility] [phone] * (ABNORMAL) PHOSPHORUS BLOOD (02/28/2024 2:53 AM CDT) Pathologist [facility] Phosphorus 5.3(H) 2.9 - 5.1 mg/dL 02/28/2024 4:20 AM [facility] [place] Blood BLOOD SPECIMEN / Unknown Lab Venipuncture / Unknown 02/28/2024 2:53 AM CDT 02/28/2024 3:44 AM CDT Justyn Galvez DO LAB - CHEMISTRY RAADE WADE [address] [address], [facility] [phone] * (ABNORMAL) BASIC METABOLIC PANEL (CALCIUM TOTAL) (02/28/2024 2:53 AM CDT) Pathologist [facility] BUN 26 7 - 26 mg/dL 02/28/2024 4:20 AM [facility] [place] Creatinine 4.59(H) 0.56 - 0.96 mg/dL 02/28/2024 4:20 AM [facility] [place] Sodium 134(L) 136 - 145 mmol/L 02/28/2024 4:20 AM [facility] [place] Potassium 4.4 3.5 - 4.5 mmol/L 02/28/2024 4:20 AM [facility] [place] Chloride 102 98 - 107 mmol/L 02/28/2024 4:20 AM [facility] [place] CO2 26 22 - 29 mmol/L 02/28/2024 4:20 AM [facility] [place] Glucose 111 70 - 115 mg/dL 02/28/2024 4:20 AM [facility] Calcium 8.7 8.4 - 10.2 mg/dL 02/28/2024 4:20 AM [facility] [place] Anion Gap 6 6 - 16 02/28/2024 4:20 AM [facility] [place] BUN/Creatinine Ratio 6(L) 7 - 23 02/28/2024 4:20 AM [facility] [place] Osmolality Calculated 283 275 - 295 mOsm/kg 02/28/2024 4:20 AM CDT [facility] eGFR by CKD-EPI 12(L) >=90 mL/min/1.7 3 m2 02/28/2024 4:20 AM CDT [facility] Blood BLOOD SPECIMEN / Unknown Lab Venipuncture / Unknown 02/28/2024 2:53 AM CDT 02/28/2024 3:44 AM CDT Justyn Galvez DO LAB - CHEMISTRY DIVINA OLVERA [address] [address], [place] [phone] * VANCOMYCIN LEVEL RANDOM (02/28/2024 2:53 AM CDT) Vancomycin Random 24.6 Therapeutic Ranges not established for random specimens ug/mL 02/28/2024 4:00 AM CDT [facility] Blood BLOOD SPECIMEN / Unknown Lab Venipuncture / Unknown 02/28/2024 2:53 AM CDT 02/28/2024 3:28 AM CDT Narrative [facility] - 02/28/2024 4:00 AM CDT See institution protocol. Joe Vargas MD LAB - CHEMISTRY O RDERABLES Performing Organization Address [facility]/ZIP Co de Phone Number [address] [address], [place] [phone] * (ABNORMAL) GLUCOSE - POINT OF CARE (02/28/2024 12:04 AM CDT) Glucose WB/POC 124(H) 70 - 115 mg/dL 02/28/2024 12:09 AM CDT [facility] Specimen Type Cap Fingerstick 2023 12:09 AM CDT [facility] Blood BLOOD SPECIMEN / Unknown 02/28/2024 12:04 AM CDT 02/28/2024 12:09 AM CDT Joe Vargas MD LAB - POINT OF CA RE ORDERABLES [facility] [address] [place] [address], [place] [phone] * GLUCOSE - POINT OF CARE (02/27/2024 8:43 PM CDT) Glucose WB/POC 94 70 - 115 mg/dL 02/27/2024 8:45 PM CDT [facility] Specimen Type Cap Fingerstick 2023 8:45 PM CDT [facility] Blood BLOOD SPECIMEN / Unknown 02/27/2024 8:43 PM CDT 02/27/2024 8:45 PM CDT Joe Vargas MD LAB - POINT OF CA RE ORDERABLES Performing Organization Address City/[facility]/ZIP Co de Phone Number [address] [address], [place] [phone] * (ABNORMAL) GLUCOSE - POINT OF CARE (02/27/2024 5:35 PM CDT) Glucose WB/POC 128(H) 70 - 115 mg/dL 02/27/2024 5:36 PM CDT [facility] Specimen Type Cap Fingerstick 2023 5:36 PM CDT [facility] Blood BLOOD SPECIMEN / Unknown 02/27/2024 5:35 PM CDT 02/27/2024 5:36 PM CDT Joe Vargas MD LAB - POINT OF CA RE ORDERABLES [address] [address], [place] [phone] * GLUCOSE - POINT OF CARE (02/27/2024 12:29 PM CDT) Glucose WB/POC 107 70 - 115 mg/dL 02/27/2024 12:30 PM CDT [facility] Specimen Type Cap Fingerstick 2023 12:30 PM CDT [facility] Blood BLOOD SPECIMEN / Unknown 02/27/2024 12:29 PM CDT 02/27/2024 12:30 PM CDT Joe Vargas MD LAB - POINT OF CA RE ORDERABLES [facility] [address] [place] [address], [facility] [phone] * GLUCOSE - POINT OF CARE (02/27/2024 9:21 AM CDT) Pathologist [facility] Glucose WB/POC 102 70 - 115 mg/dL 02/28/2024 6:04 AM CDT [facility] Specimen Type Venous 02/28/2024 6:04 AM CDT [facility] Blood BLOOD SPECIMEN / Unknown 02/27/2024 9:21 AM CDT 02/28/2024 6:04 AM CDT Joe Vargas MD LAB - POINT OF CA RE ORDERABLES [facility] [address] [place] [address], [facility] [phone] * (ABNORMAL) CBC W AUTO DIFFERENTIAL (02/27/2024 1:25 AM CDT) Pathologist [facility] WBC 14.3(H) 4.0 - 10.7 x10E9/L 02/27/2024 2:33 AM [facility] RBC Count 3.16(L) 3.90 - 5.20 x10E12/L 02/27/2024 2:33 AM T [facility] Hemoglobin 9.2(L) 11.9 - 15.8 g/dL 02/27/2024 2:33 AM T [facility] Hematocrit 30.3(L) 34.8 - 46.1 % 02/27/2024 2:33 AM [facility] [place] MCV 95.9 80.0 - 98.0 fL 02/27/2024 2:33 AM T [facility] MCH 29.1 26.7 - 33.6 pg 02/27/2024 2:33 AM T [facility] MCHC 30.4(L) 31.7 - 36.3 g/dL 02/27/2024 2:33 AM [facility] [place] RDW-CV 14.2 11.3 - 14.8 % 02/27/2024 2:33 AM [facility] [place] Platelet Count 502(H) 150 - 420 x10E9/L 02/27/2024 2:33 AM [facility] [place] MPV 9.2 7.8 - 11.4 fL 02/27/2024 2:33 AM [facility] [place] Neutrophil % 61.4 41.0 - 74.0 % 02/27/2024 2:33 AM [facility] [place] Lymphocyte % 18.3 17.0 - 47.0 % 02/27/2024 2:33 AM [facility] [place] Monocyte % 9.1 3.0 - 11.0 % 02/27/2024 2:33 AM [facility] [place] Eosinophil % 8.9(H) 0.0 - 7.0 % 02/27/2024 2:33 AM [facility] [place] Basophil % 0.5 0.0 - 1.6 % 02/27/2024 2:33 AM [facility] [place] Immature Granulocytes % 1.8(H) 0.0 - 1.0 % 02/27/2024 2:33 AM [facility] [place] Neutrophil Absolute 8.77(H) 1.60 - 7.50 x10E9/L 02/27/2024 2:33 AM [facility] [place] Lymphocyte Absolute 2.61 1.00 - 4.40 x10E9/L 02/27/2024 2:33 AM [facility] [place] Monocyte Absolute 1.30(H) 0.15 - 1.00 x10E9/L 02/27/2024 2:33 AM [facility] [place] Eosinophil Absolute 1.27(H) 0.00 - 0.60 x10E9/L 02/27/2024 2:33 AM [facility] [place] Basophil Absolute 0.07 0.00 - 0.13 x10E9/L 02/27/2024 2:33 AM [facility] [place] Blood BLOOD SPECIMEN / Unknown Lab Venipuncture / Unknown 02/27/2024 1:25 AM CDT 02/27/2024 2:25 AM CDT Justyn Galvez DO LAB - HEMATOLOGY ORD ERABLES Performing Organization Address City/[facility]/ZIP Co de Phone Number [address] [address], [facility] [phone] * MAGNESIUM BLOOD (02/27/2024 1:24 AM CDT) Magnesium 2.1 1.6 - 2.6 mg/dL 02/27/2024 2:54 AM CDT [facility] Blood BLOOD SPECIMEN / Unknown Lab Venipuncture / Unknown 02/27/2024 1:24 AM CDT 02/27/2024 2:25 AM CDT Justyn Galvez DO LAB - CHEMISTRY ORDE RABLIZA Performing Organization Address [facility] Co de Phone Number [address] [address], [facility] [phone] * (ABNORMAL) PHOSPHORUS BLOOD (02/27/2024 1:24 AM CDT) Phosphorus 5.7(H) 2.9 - 5.1 mg/dL 02/27/2024 2:54 AM CDT [facility] Blood BLOOD SPECIMEN / Unknown Lab Venipuncture / Unknown 02/27/2024 1:24 AM CDT 02/27/2024 2:25 AM CDT Justyn Galvez DO LAB - CHEMISTRY ORDE RABLIZA Performing Organization Address [facility]/ZIP Co de Phone Number [address] [address], [place] [phone] * (ABNORMAL) BASIC METABOLIC PANEL (CALCIUM TOTAL) (02/27/2024 1:24 AM CDT) BUN 29(H) 7 - 26 mg/dL 02/27/2024 2:54 AM CDT [facility] Creatinine 5.07(H) 0.56 - 0.96 mg/dL 02/27/2024 2:54 AM [facility] [place] Sodium 136 136 - 145 mmol/L 02/27/2024 2:54 AM [facility] [place] Potassium 4.5 3.5 - 4.5 mmol/L 02/27/2024 2:54 AM [facility] [place] Chloride 104 98 - 107 mmol/L 02/27/2024 2:54 AM [facility] [place] CO2 25 22 - 29 mmol/L 02/27/2024 2:54 AM [facility] [place] Glucose 102 70 - 115 mg/dL 02/27/2024 2:54 AM [facility] [place] Calcium 8.4 8.4 - 10.2 mg/dL 02/27/2024 2:54 AM [facility] [place] Anion Gap 7 6 - 16 02/27/2024 2:54 AM [facility] [place] BUN/Creatinine Ratio 6(L) 7 - 23 02/27/2024 2:54 AM [facility] [place] Osmolality Calculated 288 275 - 295 mOsm/kg 02/27/2024 2:54 AM [facility] [place] eGFR by CKD-EPI 11(L) >=90 mL/min/1.7 3 m2 02/27/2024 2:54 AM [facility] [place] Blood BLOOD SPECIMEN / Unknown Lab Venipuncture / Unknown 02/27/2024 1:24 AM CDT 02/27/2024 2:25 AM T Justyn Galvez DO LAB - CHEMISTRY DIVINA OLVERA [facility] Organization Address City/State/[facility] Co de Phone Number [facility] [address] [place] [address], [facility] [phone] * (ABNORMAL) GLUCOSE - POINT OF CARE (02/27/2024 12:02 AM CDT) Glucose WB/POC 134(H) 70 - 115 mg/dL 02/27/2024 12:06 AM [facility] [place] Specimen Type Cap Fingerstick 2023 12:06 AM [facility] [place] Blood BLOOD SPECIMEN / Unknown 02/27/2024 12:02 AM CDT 02/27/2024 12:06 AM CDT Joe Vargas MD LAB - POINT OF PR RE ORDERABLES Performing Organization Address City/[facility]/ZIP Co de Phone Number [address] [address], [place] [phone] * GLUCOSE - POINT OF CARE (02/26/2024 4:20 PM CDT) Glucose WB/POC 112 70 - 115 mg/dL 02/26/2024 4:21 PM CDT [facility] Specimen Type Cap Fingerstick 2023 4:21 PM CDT [facility] Blood BLOOD SPECIMEN / Unknown 02/26/2024 4:20 PM CDT 02/26/2024 4:21 PM CDT Joe Vargas MD LAB - POINT OF PR RE ORDERABLES Performing Organization Address City/[facility]/ZIP Co de Phone Number [address] [address], [place] [phone] * (ABNORMAL) GLUCOSE - POINT OF CARE (02/26/2024 4:56 AM CDT) Glucose WB/POC 136(H) 70 - 115 mg/dL 02/26/2024 5:00 AM CDT [facility] Specimen Type Cap Fingerstick 2023 5:00 AM CDT [facility] Blood BLOOD SPECIMEN / Unknown 02/26/2024 4:56 AM CDT 02/26/2024 5:00 AM CDT Kranthi Miles MD LAB - POINT OF CARE ORDERABLES [address] [address], [place] [phone] * (ABNORMAL) CBC W AUTO DIFFERENTIAL (02/26/2024 1:37 AM CDT) WBC 13.9(H) 4.0 - 10.7 x10E9/L 02/26/2024 2:28 AM [facility] RBC Count 3.14(L) 3.90 - 5.20 x10E12/L 02/26/2024 2:28 AM [facility] [place] Hemoglobin 9.2(L) 11.9 - 15.8 g/dL 02/26/2024 2:28 AM [facility] [place] Hematocrit 30.4(L) 34.8 - 46.1 % 02/26/2024 2:28 AM [facility] [place] MCV 96.8 80.0 - 98.0 fL 02/26/2024 2:28 AM [facility] [place] MCH 29.3 26.7 - 33.6 pg 02/26/2024 2:28 AM [facility] [place] MCHC 30.3(L) 31.7 - 36.3 g/dL 02/26/2024 2:28 AM [facility] [place] RDW-CV 14.4 11.3 - 14.8 % 02/26/2024 2:28 AM [facility] [place] Platelet Count 533(H) 150 - 420 x10E9/L 02/26/2024 2:28 AM [facility] [place] MPV 9.1 7.8 - 11.4 fL 02/26/2024 2:28 AM [facility] [place] Neutrophil % 56.6 41.0 - 74.0 % 02/26/2024 2:28 AM [facility] [place] Lymphocyte % 19.6 17.0 - 47.0 % 02/26/2024 2:28 AM [facility] [place] Monocyte % 9.6 3.0 - 11.0 % 02/26/2024 2:28 AM [facility] [place] Eosinophil % 10.9(H) 0.0 - 7.0 % 02/26/2024 2:28 AM [facility] [place] Basophil % 0.6 0.0 - 1.6 % 02/26/2024 2:28 AM [facility] [place] Immature Granulocytes % 2.7(H) 0.0 - 1.0 % 02/26/2024 2:28 AM [facility] [place] Neutrophil Absolute 7.88(H) 1.60 - 7.50 x10E9/L 02/26/2024 2:28 AM CDT [facility] Lymphocyte Absolute 2.73 1.00 - 4.40 x10E9/L 02/26/2024 2:28 AM CDT [facility] Monocyte Absolute 1.33(H) 0.15 - 1.00 x10E9/L 02/26/2024 2:28 AM CDT [facility] Eosinophil Absolute 1.52(H) 0.00 - 0.60 x10E9/L 02/26/2024 2:28 AM CDT [facility] Basophil Absolute 0.08 0.00 - 0.13 x10E9/L 02/26/2024 2:28 AM CDT [facility] Blood BLOOD SPECIMEN / Unknown Lab Venipuncture / Unknown 02/26/2024 1:37 AM CDT 02/26/2024 2:20 AM CDT Justyn Galvez DO LAB - HEMATOLOGY ORD ERABLES [address] [address], [facility] [phone] * MAGNESIUM BLOOD (02/26/2024 1:37 AM CDT) Magnesium 2.3 1.6 - 2.6 mg/dL 02/26/2024 2:46 AM CDT [facility] Blood BLOOD SPECIMEN / Unknown Lab Venipuncture / Unknown 02/26/2024 1:37 AM CDT 02/26/2024 2:20 AM CDT Justyn Galvez DO LAB - CHEMISTRY ORDE RABLES [address] [address], [facility] [phone] * (ABNORMAL) PHOSPHORUS BLOOD (02/26/2024 1:37 AM CDT) Phosphorus 7.4(H) 2.9 - 5.1 mg/dL 02/26/2024 2:46 AM [facility] Blood BLOOD SPECIMEN / Unknown Lab Venipuncture / Unknown 02/26/2024 1:37 AM CDT 02/26/2024 2:20 AM CDT Justyn Galvez LAB - CHEMISTRY ORDE WADE [facility] [address] [place] [address], [facility] [phone] * (ABNORMAL) BASIC METABOLIC PANEL (CALCIUM TOTAL) (02/26/2024 1:37 AM CDT) BUN 32(H) 7 - 26 mg/dL 02/26/2024 2:46 AM [facility] Creatinine 5.64(H) 0.56 - 0.96 mg/dL 02/26/2024 2:46 AM [facility] Sodium 139 136 - 145 mmol/L 02/26/2024 2:46 AM [facility] Potassium 4.6(H) 3.5 - 4.5 mmol/L 02/26/2024 2:46 AM [facility] Chloride 102 98 - 107 mmol/L 02/26/2024 2:46 AM [facility] CO2 26 22 - 29 mmol/L 02/26/2024 2:46 AM [facility] Glucose 117(H) 70 - 115 mg/dL 02/26/2024 2:46 AM [facility] Calcium 8.7 8.4 - 10.2 mg/dL 02/26/2024 2:46 AM [facility] Anion Gap 11 6 - 16 02/26/2024 2:46 AM [facility] BUN/Creatinine Ratio 6(L) 7 - 23 02/26/2024 2:46 AM [facility] Osmolality Calculated 296(H) 275 - 295 mOsm/kg 02/26/2024 2:46 AM [facility] eGFR by CKD-EPI 10(L) >=90 mL/min/1.7 3 m2 02/26/2024 2:46 AM [facility] Blood BLOOD SPECIMEN / Unknown Lab Venipuncture / Unknown 02/26/2024 1:37 AM CDT 02/26/2024 2:20 AM CDT Justyn Galvez DO LAB - CHEMISTRY DIVINA OLVERA Performing Organization Address City/[facility]/ZIP Co de Phone Number [facility] [address] [place] [address], [place] [phone] * VANCOMYCIN LEVEL RANDOM (02/26/2024 1:37 AM CDT) Vancomycin Random 14.5 Therapeutic Ranges not established for random specimens ug/mL 02/26/2024 2:35 AM CDT [facility] Blood BLOOD SPECIMEN / Unknown Lab Venipuncture / Unknown 02/26/2024 1:37 AM CDT 02/26/2024 2:12 AM CDT Narrative [facility] - 02/26/2024 2:35 AM CDT See institution protocol. Rafa Patel MD LAB - CHEMISTRY DIVINA OLVERA Performing Organization Address [facility]/ZIP Co de Phone Number [address] [address], [place] [phone] * GLUCOSE - POINT OF CARE (02/26/2024 12:10 AM CDT) [facility] Glucose WB/POC 113 70 - 115 mg/dL 02/26/2024 12:18 AM CDT [facility] Specimen Type Cap Fingerstick 2023 12:18 AM CDT [facility] Blood BLOOD SPECIMEN / Unknown 02/26/2024 12:10 AM CDT 02/26/2024 12:18 AM CDT Kranthi Miles MD LAB - POINT OF CARE ORDERABLES Performing Organization Address [facility]/ZIP Co de Phone Number [address] [address], [place] [phone] * (ABNORMAL) GLUCOSE - POINT OF CARE (02/25/2024 8:09 PM CDT) Glucose WB/POC 191(H) 70 - 115 mg/dL 02/25/2024 8:14 PM CDT [facility] Specimen Type Cap Fingerstick 2023 8:14 PM CDT [facility] Blood BLOOD SPECIMEN / Unknown 02/25/2024 8:09 PM CDT 02/25/2024 8:14 PM CDT Kranthi Miles MD LAB - POINT OF CARE ORDERABLES Performing Organization Address City/[facility]/ZIP Co de Phone Number [facility] [address] [place] [address], [place] [phone] * (ABNORMAL) GLUCOSE - POINT OF CARE (02/25/2024 5:52 PM CDT) Glucose WB/POC 228(H) 70 - 115 mg/dL 02/25/2024 5:53 PM CDT [facility] Specimen Type Cap Fingerstick 2023 5:53 PM CDT [facility] Blood BLOOD SPECIMEN / Unknown 02/25/2024 5:52 PM CDT 02/25/2024 5:53 PM CDT Kranthi Miles MD LAB - POINT OF CARE ORDERABLES Performing Organization Address [facility] Co de Phone Number [address] [address], [place] [phone] * (ABNORMAL) GLUCOSE - POINT OF CARE (02/25/2024 12:25 PM CDT) Glucose WB/POC 165(H) 70 - 115 mg/dL 02/25/2024 12:27 PM CDT [facility] Specimen Type Cap Fingerstick 2023 12:27 PM CDT [facility] Blood BLOOD SPECIMEN / Unknown 02/25/2024 12:25 PM CDT 02/25/2024 12:27 PM CDT Kranthi Miles MD LAB - POINT OF CARE ORDERABLES [facility] [address] [place] [address], [facility] [phone] * IR CENTRAL LINE REPLACE (02/25/2024 11:21 [...] (end stage renal disease) (HCC) 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 FLUOROSCOPY DOSE: ??2 [...] (end stage renal disease) (HCC) 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 FLUOROSCOPY DOSE: 2 [...] King Taylor PA-C CT ORDERABLES * CULTURE ANAEROBE (02/25/2024 10:24 AM CDT) Culture No anaerobic organisms isolated CHARLES 03/01/2024 9:56 AM CDT [facility] Microbiology SPECIMEN FROM [facility] / Unknown Collection / Unknown 02/25/2024 10:24 AM CDT 02/25/2024 10:54 AM CDT Kranthi Miles MD LAB - MICROBIOLOGY O DARRELL Performing Organization Address City/[facility] Co de Phone Number [facility] [address] [place] [address], [facility] [phone] * CULTURE FUNGUS OTHER+FUNGUS SMEAR (02/25/2024 10:24 AM CDT) Culture No fungus isolated CHARLES 03/22/2024 7:32 AM CDT [facility] Fungus Stain No yeast or hyphae seen 03/22/2024 7:32 AM CDT [facility] Microbiology SPECIMEN FROM [facility] / Unknown Collection / Unknown 02/25/2024 10:24 AM CDT 02/25/2024 10:54 AM CDT Kranthi Miles MD LAB - MICROBIOLOGY O DARRELL Performing Organization Address [facility] Co de Phone Number [facility] [address] [place] [address], [facility] [phone] * CULTURE AFB+SMEAR (02/25/2024 10:24 AM CDT) Culture No acid-fast bacillus isolated 04/05/2024 7:24 AM CDT [facility] AFB Smear No acid-fast bacilli seen 04/05/2024 7:24 AM CDT [facility] Microbiology SPECIMEN FROM [facility] / Unknown Collection / Unknown 02/25/2024 10:24 AM CDT 02/25/2024 10:55 AM CDT Kranthi Miles MD LAB - MICROBIOLOGY O DARRELL Performing Organization Address City/[facility]/ZIP Co de Phone Number [facility] [address] [place] [address], [facility] [phone] * CULTURE WOUND+GRAM STAIN (02/25/2024 10:24 AM CDT) Culture No growth CHARLES 02/27/2024 5:13 PM CDT [facility] Gram Stain Heavy Polymorphonuclear cells 02/27/2024 5:13 PM CDT [facility] Gram Stain No organisms seen 024 5:13 PM CDT [facility] Microbiology SPECIMEN FROM [facility] / Unknown Collection / Unknown 02/25/2024 10:24 AM CDT 02/25/2024 10:55 AM CDT Kranthi Miles MD LAB - MICROBIOLOGY O RDERABLES Performing Organization Address City/[facility]/ZIP Co de Phone Number [facility] [address] [place] [address], [facility] [phone] * (ABNORMAL) GLUCOSE - POINT OF CARE (02/25/2024 8:37 AM CDT) Glucose WB/POC 180(H) 70 - 115 mg/dL 02/25/2024 8:46 AM CDT [facility] Specimen Type Cap Fingerstick 2023 8:46 AM CDT [facility] Blood BLOOD SPECIMEN / Unknown 02/25/2024 8:37 AM CDT 02/25/2024 8:46 AM CDT Kranthi Miles MD LAB - POINT OF CARE ORDERABLES Performing Organization Address [facility] Co de Phone Number [address] [address], [place] [phone] * (ABNORMAL) GLUCOSE - POINT OF CARE (02/25/2024 4:54 AM CDT) Glucose WB/POC 199(H) 70 - 115 mg/dL 02/25/2024 4:59 AM CDT [facility] Specimen Type Cap Fingerstick 2023 4:59 AM CDT [facility] Blood BLOOD SPECIMEN / Unknown 02/25/2024 4:54 AM CDT 02/25/2024 4:59 AM CDT Kranthi Miles MD LAB - POINT OF CARE ORDERABLES Performing Organization Address City/[facility]/ZIP Co de Phone Number [address] [place] [address] [phone] * (ABNORMAL) CBC W AUTO DIFFERENTIAL (02/25/2024 1:10 AM T) WBC 15.9(H) 4.0 - 10.7 x10E9/L 02/25/2024 1:47 AM [facility] RBC Count 3.15(L) 3.90 - 5.20 x10E12/L 02/25/2024 1:47 AM [facility] Hemoglobin 9.3(L) 11.9 - 15.8 g/dL 02/25/2024 1:47 AM [facility] [place] Hematocrit 30.3(L) 34.8 - 46.1 % 02/25/2024 1:47 AM [facility] MCV 96.2 80.0 - 98.0 fL 02/25/2024 1:47 AM [facility] MCH 29.5 26.7 - 33.6 pg 02/25/2024 1:47 AM [facility] MCHC 30.7(L) 31.7 - 36.3 g/dL 02/25/2024 1:47 AM [facility] RDW-CV 14.2 11.3 - 14.8 % 02/25/2024 1:47 AM [facility] Platelet Count 485(H) 150 - 420 x10E9/L 02/25/2024 1:47 AM [facility] MPV 9.1 7.8 - 11.4 fL 02/25/2024 1:47 AM [facility] Neutrophil % 61.7 41.0 - 74.0 % 02/25/2024 1:47 AM [facility] Lymphocyte % 14.0(L) 17.0 - 47.0 % 02/25/2024 1:47 AM [facility] Monocyte % 7.7 3.0 - 11.0 % 02/25/2024 1:47 AM [facility] Eosinophil % 12.5(H) 0.0 - 7.0 % 02/25/2024 1:47 AM [facility] [place] Basophil % 0.6 0.0 - 1.6 % 02/25/2024 1:47 AM CDT [facility] Immature Granulocytes % 3.5(H) 0.0 - 1.0 % 02/25/2024 1:47 AM T [facility] Neutrophil Absolute 9.84(H) 1.60 - 7.50 x10E9/L 02/25/2024 1:47 AM T [facility] Lymphocyte Absolute 2.22 1.00 - 4.40 x10E9/L 02/25/2024 1:47 AM T [facility] Monocyte Absolute 1.22(H) 0.15 - 1.00 x10E9/L 02/25/2024 1:47 AM T [facility] Eosinophil Absolute 1.98(H) 0.00 - 0.60 x10E9/L 02/25/2024 1:47 AM T [facility] Basophil Absolute 0.09 0.00 - 0.13 x10E9/L 02/25/2024 1:47 AM CDT [facility] Blood BLOOD SPECIMEN / Unknown Lab Venipuncture / Unknown 02/25/2024 1:10 AM CDT 02/25/2024 1:43 AM CDT Justyn Galvez DO LAB - HEMATOLOGY ORD ERABLES [address] [address], [facility] [phone] * MAGNESIUM BLOOD (02/25/2024 1:10 AM CDT) Magnesium 2.1 1.6 - 2.6 mg/dL 02/25/2024 2:44 AM CDT [facility] Blood BLOOD SPECIMEN / Unknown Lab Venipuncture / Unknown 02/25/2024 1:10 AM CDT 02/25/2024 1:46 AM CDT Justyn Galvez DO LAB - CHEMISTRY ORDE RABLES [address] [address], [place] [phone] * PHOSPHORUS BLOOD (02/25/2024 1:10 AM CDT) Phosphorus 5.0 2.9 - 5.1 mg/dL 02/25/2024 2:44 AM [facility] Blood BLOOD SPECIMEN / Unknown Lab Venipuncture / Unknown 02/25/2024 1:10 AM CDT 02/25/2024 1:46 AM CDT Justyn Galvez DO LAB - CHEMISTRY ORDE WADE [facility] [address] [place] [address], [facility] [phone] * (ABNORMAL) BASIC METABOLIC PANEL (CALCIUM TOTAL) (02/25/2024 1:10 AM CDT) BUN 18 7 - 26 mg/dL 02/25/2024 2:44 AM [facility] Creatinine 4.15(H) 0.56 - 0.96 mg/dL 02/25/2024 2:44 AM [facility] Sodium 135(L) 136 - 145 mmol/L 02/25/2024 2:44 AM [facility] Potassium 4.2 3.5 - 4.5 mmol/L 02/25/2024 2:44 AM [facility] Chloride 101 98 - 107 mmol/L 02/25/2024 2:44 AM [facility] CO2 25 22 - 29 mmol/L 02/25/2024 2:44 AM [facility] Glucose 214(H) 70 - 115 mg/dL 02/25/2024 2:44 AM [facility] Calcium 8.3(L) 8.4 - 10.2 mg/dL 02/25/2024 2:44 AM [facility] Anion Gap 9 6 - 16 02/25/2024 2:44 AM [facility] BUN/Creatinine Ratio 4(L) 7 - 23 02/25/2024 2:44 AM [facility] [place] Osmolality Calculated 288 275 - 295 mOsm/kg 02/25/2024 2:44 AM CDT [facility] eGFR by CKD-EPI 14(L) >=90 mL/min/1.7 3 m2 02/25/2024 2:44 AM CDT [facility] Blood BLOOD SPECIMEN / Unknown Lab Venipuncture / Unknown 02/25/2024 1:10 AM CDT 02/25/2024 1:46 AM CDT Justyn Galvez DO LAB - CHEMISTRY DIVINA OLVERA [facility] [address] [place] [address], [facility] [phone] * (ABNORMAL) VITAMIN D 25-HYDROXY (02/25/2024 1:10 AM CDT) [facility] Vitamin D, 25 Hydroxy 12.3(L) 30.0 - 80.0 ng/mL 02/25/2024 2:48 AM CDT [facility] Comment: The recommendations for 25-Hydroxy [...] CDT Rafa Patel MD LAB - CHEMISTRY ORDMichaela OLVERA Performing Organization Address City/[facility]/ZIP Co de Phone Number [address] [address], [place] [phone] * (ABNORMAL) PTH INTACT W/O CALCIUM (02/25/2024 1:10 AM CDT) PTH Intact 93.0(H) 8.0 - 77.0 pg/mL 02/25/2024 2:44 AM CDT [facility] Blood BLOOD SPECIMEN / Unknown Lab Venipuncture / Unknown 02/25/2024 1:10 AM CDT 02/25/2024 1:46 AM CDT Rafa Patel MD LAB - CHEMISTRY DIVINA OLVERA Performing Organization Address [facility] Co de Phone Number [address] [address], [facility] [phone] * VITAMIN B12 (02/25/2024 1:10 AM CDT) Vitamin B12 667 213 - 816 pg/mL 02/25/2024 2:48 AM CDT [facility] Blood BLOOD SPECIMEN / Unknown Lab Venipuncture / Unknown 02/25/2024 1:10 AM CDT 02/25/2024 1:46 AM CDT Rafa Patel MD LAB - CHEMISTRY DIVINA OLVERA Performing Organization Address City/[facility]/ZIP Co de Phone Number [address] [address], [place] [phone] * FOLATE (02/25/2024 1:10 AM CDT) Folate 10.2 7.0 - 31.4 ng/mL 02/25/2024 2:48 AM CDT [facility] Blood BLOOD SPECIMEN / Unknown Lab Venipuncture / Unknown 02/25/2024 1:10 AM CDT 02/25/2024 1:46 AM CDT Rafa Patel MD LAB - CHEMISTRY DIVINA OLVERA [facility] [address] [place] [address], [place] [phone] * (ABNORMAL) FERRITIN (02/25/2024 1:10 AM CDT) Ferritin 833(H) 13 - 204 ng/mL 02/25/2024 4:36 AM CDT [facility] Blood BLOOD SPECIMEN / Unknown Lab Venipuncture / Unknown 02/25/2024 1:10 AM CDT 02/25/2024 1:43 AM CDT Rafa Patel MD LAB - CHEMISTRY DIVINA OLVERA [address] [address], [place] [phone] * (ABNORMAL) IRON + TRANSFERRIN PANEL (02/25/2024 1:10 AM CDT) Iron 23(L) 40 - 150 ug/dL 02/25/2024 4:19 AM CDT [facility] Transferrin 119(L) 174 - 382 mg/dL 02/25/2024 4:19 AM CDT [facility] Transferrin Saturation % 15(L) 16 - 50 % 02/25/2024 4:19 AM CDT [facility] TIBC Calculated 149(L) 240 - 450 ug/dL 02/25/2024 4:19 AM CDT [facility] Blood BLOOD SPECIMEN / Unknown Lab Venipuncture / Unknown 02/25/2024 1:10 AM CDT 02/25/2024 1:43 AM CDT Rafa Patel MD LAB - CHEMISTRY DIVINA OLVERA [address] [address], [place] [phone] * CHLAMYDIA + GC AMPLIFIED PROBE (02/24/2024 11:14 PM CDT) Chlamydia Amplified Probe Negative Negative 02/25/2024 7:24 PM CDT [facility] GC Amplified Probe Negative Negative 02/25/2024 7:24 PM CDT [facility] Microbiology URINE / Unknown Collection / Unknown 02/24/2024 11:14 PM CDT 02/24/2024 11:14 PM CDT Narrative [facility] - 02/25/2024 7:24 PM CDT Results based on detection/no detection of ribosomal RNA by amplified method. Justyn Galvez LAB - MICROBIOLOGY O RDERAALONZO Performing Organization Address City/[facility]/ZIP Co de Phone Number [facility] [address] [place] [address], [facility] [phone] * (ABNORMAL) CULTURE URINE (02/24/2024 11:06 PM CDT) Pathologist [facility] Culture Urine 50,000-100,000 CFU/mL Enterococcus faecium vancomycin-resi stant (VRE)(A) CHARLES 02/27/2024 11:22 PM CDT [facility] Comment:Susceptibility to fo llow Culture Urine 50,000-100,000 CFU/mL urogenital nish CHARLES 02/27/2024 11:22 PM CDT [facility] Urine URINE SPECIMEN OBTAINED BY CLEAN [...] Vancomycin CHARLES >=32 ug/mL: Resistant Justyn Galvez LAB - MICROBIOLOGY O RDERABLES [facility] [address] [place] [address], [facility] [phone] * (ABNORMAL) URINE MICROSCOPIC ONLY REFLEX TO CULTURE (02/24/2024 11:06 PM CDT) Reflex Status Culture to follow 02/24/2024 11:37 PM CDT [facility] WBC UA 6-10(A) None Seen, 0-5 /HPF 02/24/2024 11:37 PM CDT [facility] Bacteria UA Trace(A) None /HPF 02/24/2024 11:37 PM CDT [facility] Squamous Epithelial Cells UA 0-2 None Seen, 0-2, 3-5 /HPF 02/24/2024 11:37 PM CDT [facility] Urine URINE SPECIMEN OBTAINED BY CLEAN CATCH PROCEDURE / Unknown Collection / Unknown 02/24/2024 11:06 PM CDT 02/24/2024 11:13 PM CDT Narrative [facility] - 02/24/2024 11:37 PM CDT Justyn Galvez DO LAB - URINALYSIS ORD ERABLES [facility] [address] [place] [address], [facility] [phone] * (ABNORMAL) URINALYSIS REFLEX MICROSCOPIC REFLEX CULTURE (02/24/2024 11:06 PM CDT) Color UA Yellow Straw, Yellow 02/24/2024 11:36 PM CDT [facility] Clarity UA Slt Cloudy(A) Clear 02/24/2024 11:36 PM T [facility] Specific Hallie UA 1.015 1.005 - 1.030 02/24/2024 11:36 PM T [facility] pH UA 5.0 5.0 - 8.0 pH 02/24/2024 11:36 PM T [facility] Protein UA 3+(A) Negative 02/24/2024 11:36 PM T [facility] Glucose UA 2+(A) Negative 02/24/2024 11:36 PM T [facility] Ketone UA Trace(A) Negative 02/24/2024 11:36 PM CDT [facility] Bilirubin UA Negative Negative 02/24/2024 11:36 PM CDT [facility] Blood UA Negative Negative 02/24/2024 11:36 PM CDT [facility] Nitrite UA Negative Negative 02/24/2024 11:36 PM CDT [facility] Leukocyte Esterase 2+(A) Negative 02/24/2024 11:36 PM CDT [facility] Urobilinogen UA Negative Negative mg/dL 02/24/2024 11:36 PM CDT [facility] Urine URINE SPECIMEN OBTAINED BY CLEAN CATCH PROCEDURE / Unknown Collection / Unknown 02/24/2024 11:06 PM CDT 02/24/2024 11:13 PM CDT Narrative [facility] - 02/24/2024 11:36 PM CDT Justyn Galvez DO LAB - URINALYSIS ORD ERABLES [facility] [address] [place] [address], [place] [phone] * (ABNORMAL) GLUCOSE - POINT OF CARE (02/24/2024 7:22 PM CDT) Glucose WB/POC 169(H) 70 - 115 mg/dL 02/24/2024 7:26 PM CDT [facility] Specimen Type Cap Fingerstick 2023 7:26 PM CDT [facility] Blood BLOOD SPECIMEN / Unknown 02/24/2024 7:22 PM CDT 02/24/2024 7:26 PM CDT Kranthi Miles MD LAB - POINT OF CARE ORDERABLES [facility] [address] [place] [address], [place] [phone] * (ABNORMAL) GLUCOSE - POINT OF CARE (02/24/2024 12:27 PM CDT) Glucose WB/POC 185(H) 70 - 115 mg/dL 02/24/2024 12:31 PM CDT [facility] Specimen Type Cap Fingerstick 2023 12:31 PM CDT [facility] Blood BLOOD SPECIMEN / Unknown 02/24/2024 12:27 PM CDT 02/24/2024 12:31 PM CDT Kranthi Miles MD LAB - POINT OF CARE ORDERABLES [address] [address], [place] [phone] * HIV-1 HIV-2 ANTIBODY + HIV P24 AG PANEL (02/24/2024 8:57 AM CDT) Pathologist [facility] HIV Antigen/Antibod y 1 & 2 Non-reacti ve Non-react talia 02/24/2024 10:03 AM CDT [facility] Comment:No Laboratory eviden ce of HIV infection. Blood BLOOD SPECIMEN / Unknown Lab Venipuncture / Unknown 02/24/2024 8:57 AM CDT 02/24/2024 9:00 AM CDT Rafa Patel MD LAB - CHEMISTRY ORDE WADE Performing Organization Address City/[facility]/ZIP Co de Phone Number [address] [address], [place] [phone] * (ABNORMAL) GLUCOSE - POINT OF CARE (02/24/2024 6:26 AM CDT) Pathologist [facility] Glucose WB/POC 154(H) 70 - 115 mg/dL 02/24/2024 6:27 AM CDT [facility] Specimen Type Cap Fingerstick 2023 6:27 AM CDT [facility] Blood BLOOD SPECIMEN / Unknown 02/24/2024 6:26 AM CDT 02/24/2024 6:27 AM CDT Rafa Patel MD LAB - POINT OF CARE ORDERABLES [address] [address], [place] [phone] * (ABNORMAL) GLUCOSE - POINT OF CARE (02/24/2024 1:43 AM CDT) [facility] Glucose WB/POC 257(H) 70 - 115 mg/dL 02/24/2024 1:44 AM CDT [facility] Specimen Type Cap Fingerstick 2023 1:44 AM T [facility] Blood BLOOD SPECIMEN / Unknown 02/24/2024 1:43 AM CDT 02/24/2024 1:44 AM CDT Rafa Patel MD LAB - POINT OF CARE ORDERABLES Performing Organization Address [facility]/ZIP Co de Phone Number [facility] [address] [place] [address], [place] [phone] * (ABNORMAL) HEPATITIS B SURFACE ANTIBODY (02/24/2024 1:30 AM CDT) [facility] Hepatitis B Virus Surface Antibody Reactive( A) Non-react talia 02/24/2024 2:45 AM [facility] Comment: > 12 mIU/mL Hepatitis B surface Antibody (HBsAb). Reactive for HBsAb - individual is considered immune to Hepatitis B Virus infection. Hepatitis B Surface Antibody Quantitative 37.6(H) <8.0 mIU/mL 02/24/2024 2:45 AM T [facility] Comment: Hepatitis B Surface Antibody Numeric Result Interpretation: ? Nonreactive: ?<8.0 mIU/mL ? Indeterminate: ??8.0 - 12.0 mIU/mL ? Reactive: ?>12.0 mIU/mL ? Blood BLOOD SPECIMEN / Unknown Lab Venipuncture / Unknown 02/24/2024 1:30 AM CDT 02/24/2024 2:01 AM CDT Tao Stein MD LAB - CHEMISTRY DIVIAN OLVERA Performing Organization Address [facility]/ZIP Co de Phone Number [facility] [address] [place] [address], [place] [phone] * (ABNORMAL) CBC W AUTO DIFFERENTIAL (02/24/2024 1:30 AM T) WBC 15.5(H) 4.0 - 10.7 x10E9/L 02/24/2024 2:14 AM [facility] RBC Count 3.19(L) 3.90 - 5.20 x10E12/L 02/24/2024 2:14 AM [facility] Hemoglobin 9.4(L) 11.9 - 15.8 g/dL 02/24/2024 2:14 AM [facility] Hematocrit 30.6(L) 34.8 - 46.1 % 02/24/2024 2:14 AM [facility] MCV 95.9 80.0 - 98.0 fL 02/24/2024 2:14 AM [facility] MCH 29.5 26.7 - 33.6 pg 02/24/2024 2:14 AM [facility] MCHC 30.7(L) 31.7 - 36.3 g/dL 02/24/2024 2:14 AM [facility] RDW-CV 14.1 11.3 - 14.8 % 02/24/2024 2:14 AM [facility] Platelet Count 490(H) 150 - 420 x10E9/L 02/24/2024 2:14 AM [facility] MPV 9.0 7.8 - 11.4 fL 02/24/2024 2:14 AM [facility] Neutrophil % 61.9 41.0 - 74.0 % 02/24/2024 2:14 AM [facility] Lymphocyte % 14.5(L) 17.0 - 47.0 % 02/24/2024 2:14 AM [facility] Monocyte % 7.9 3.0 - 11.0 % 02/24/2024 2:14 AM [facility] Eosinophil % 12.0(H) 0.0 - 7.0 % 02/24/2024 2:14 AM [facility] Basophil % 0.8 0.0 - 1.6 % 02/24/2024 2:14 AM [facility] Immature Granulocytes % 2.9(H) 0.0 - 1.0 % 02/24/2024 2:14 AM [facility] Neutrophil Absolute 9.62(H) 1.60 - 7.50 x10E9/L 02/24/2024 2:14 AM [facility] Lymphocyte Absolute 2.25 1.00 - 4.40 x10E9/L 02/24/2024 2:14 AM T [facility] Monocyte Absolute 1.22(H) 0.15 - 1.00 x10E9/L 02/24/2024 2:14 AM T [facility] Eosinophil Absolute 1.86(H) 0.00 - 0.60 x10E9/L 02/24/2024 2:14 AM [facility] Basophil Absolute 0.12 0.00 - 0.13 x10E9/L 02/24/2024 2:14 AM [facility] NRBC 0.2(H) <=0.0 /100 WBC 02/24/2024 2:14 AM T [facility] Blood BLOOD SPECIMEN / Unknown Lab Venipuncture / Unknown 02/24/2024 1:30 AM CDT 02/24/2024 2:09 AM CDT Justyn Galvez DO LAB - HEMATOLOGY ORD ERABLES [address] [address], [facility] [phone] * MAGNESIUM BLOOD (02/24/2024 1:30 AM CDT) Magnesium 2.2 1.6 - 2.6 mg/dL 02/24/2024 2:36 AM CDT [facility] Blood BLOOD SPECIMEN / Unknown Lab Venipuncture / Unknown 02/24/2024 1:30 AM CDT 02/24/2024 2:09 AM CDT Justyn Galvez DO LAB - CHEMISTRY ORDE RABLIZA [address] [address], [facility] [phone] * (ABNORMAL) PHOSPHORUS BLOOD (02/24/2024 1:30 AM CDT) Phosphorus 6.3(H) 2.9 - 5.1 mg/dL 02/24/2024 2:36 AM [facility] Blood BLOOD SPECIMEN / Unknown Lab Venipuncture / Unknown 02/24/2024 1:30 AM CDT 02/24/2024 2:09 AM CDT Justyn Galvez DO LAB - CHEMISTRY RAADE WADE [facility] [address] [place] [address], [facility] [phone] * (ABNORMAL) BASIC METABOLIC PANEL (CALCIUM TOTAL) (02/24/2024 1:30 AM CDT) Pathologist [facility] BUN 28(H) 7 - 26 mg/dL 02/24/2024 2:36 AM [facility] Creatinine 5.93(H) 0.56 - 0.96 mg/dL 02/24/2024 2:36 AM [facility] Sodium 135(L) 136 - 145 mmol/L 02/24/2024 2:36 AM [facility] Potassium 4.1 3.5 - 4.5 mmol/L 02/24/2024 2:36 AM [facility] Chloride 100 98 - 107 mmol/L 02/24/2024 2:36 AM [facility] CO2 24 22 - 29 mmol/L 02/24/2024 2:36 AM [facility] Glucose 223(H) 70 - 115 mg/dL 02/24/2024 2:36 AM [facility] Calcium 8.5 8.4 - 10.2 mg/dL 02/24/2024 2:36 AM [facility] Anion Gap 11 6 - 16 02/24/2024 2:36 AM [facility] BUN/Creatinine Ratio 5(L) 7 - 23 02/24/2024 2:36 AM [facility] Osmolality Calculated 292 275 - 295 mOsm/kg 02/24/2024 2:36 AM CDT [facility] eGFR by CKD-EPI 9(L) >=90 mL/min/1.7 3 m2 02/24/2024 2:36 AM CDT [facility] Blood BLOOD SPECIMEN / Unknown Lab Venipuncture / Unknown 02/24/2024 1:30 AM CDT 02/24/2024 2:09 AM CDT Justyn Galvez DO LAB - CHEMISTRY ORDE WADE [facility] [address] [place] [address], [place] [phone] * (ABNORMAL) GLUCOSE - POINT OF CARE (02/23/2024 5:58 PM CDT) [facility] Glucose WB/POC 227(H) 70 - 115 mg/dL 02/23/2024 5:59 PM CDT [facility] Specimen Type Cap Fingerstick 2023 5:59 PM CDT [facility] Blood BLOOD SPECIMEN / Unknown 02/23/2024 5:58 PM CDT 02/23/2024 5:59 PM CDT Rafa Patel MD LAB - POINT OF CARE ORDERABLES Performing Organization Address [facility]/ZIP Co de Phone Number [address] [address], [place] [phone] * XR FOOT RIGHT 3VW OR MORE [...] Patel MD DIAGNOSTIC IMAGING O RDERABLES * (ABNORMAL) GLUCOSE - POINT OF CARE (02/23/2024 12:33 PM CDT) Glucose WB/POC 201(H) 70 - 115 mg/dL 02/23/2024 12:38 PM CDT [facility] Specimen Type Cap Fingerstick 2023 12:38 PM CDT [facility] Blood BLOOD SPECIMEN / Unknown 02/23/2024 12:33 PM CDT 02/23/2024 12:38 PM CDT Raaf Patel MD LAB - POINT OF CARE ORDERABLES Performing Organization Address City/[facility]/ZIP Co de Phone Number [address] [address], [facility] [phone] * HEPATITIS B SURFACE ANTIGEN W RFLX CONFIRMATION (02/23/2024 7:37 AM CDT) Hepatitis B Virus Surface Antigen Non-reacti ve Non-reacti ve 02/24/2024 1:30 AM CDT [facility] Blood BLOOD SPECIMEN / Unknown Lab Venipuncture / Unknown 02/23/2024 7:37 AM CDT 02/23/2024 7:41 AM CDT Tao Stein MD LAB - CHEMISTRY DIVINA OLVERA Performing Organization Address City/[facility]/ZIP Co de Phone Number [address] [address], [facility] [phone] * (ABNORMAL) C-REACTIVE PROTEIN (02/23/2024 7:37 AM CDT) C-Reactive Protein 8.3(H) <=0.5 mg/dL 02/23/2024 8:14 AM CDT [facility] Blood BLOOD SPECIMEN / Unknown Lab Venipuncture / Unknown 02/23/2024 7:37 AM CDT 02/23/2024 7:44 AM CDT Justyn Galvez DO LAB - CHEMISTRY DIVINA OLVERA Performing Organization Address City/[facility]/ZIP Co de Phone Number [address] [address], [place] [phone] * (ABNORMAL) ERYTHROCYTE SEDIMENTATION RATE (02/23/2024 7:37 AM CDT) Pathologist [facility] Erythrocyte Sedimentation Rate Westergren 116(H) 0 - 20 MM/HR 02/23/2024 7:54 AM CDT [facility] Blood BLOOD SPECIMEN / Unknown Lab Venipuncture / Unknown 02/23/2024 7:37 AM CDT 02/23/2024 7:44 AM CDT Justyn Galvez DO LAB - HEMATOLOGY ORD ERABLES [facility] [address] [place] [address], [facility] [phone] * SYPHILIS ANTIBODY CASCADING REFLEX (02/23/2024 7:37 AM CDT) [facility] Treponema pallidum Antibody Non-react talia Non-react talia 02/23/2024 8:52 AM CDT [facility] Comment: No Laboratory evidence of syphilis infection. ?? Note: ??Circulating antibodies may be low or undetectable in early infection. ??If recent exposure is suspected, re-draw sample in 2-4 weeks and repeat testing. Blood BLOOD SPECIMEN / Unknown Lab Venipuncture / Unknown 02/23/2024 7:37 AM CDT 02/23/2024 7:41 AM CDT Justyn Galvez DO LAB - SEROLOGY ORDER RICHARD Performing Organization Address City/[facility]/ZIP Co de Phone Number [facility] [address] [place] [address], [facility] [phone] * VANCOMYCIN LEVEL RANDOM (02/23/2024 7:37 AM CDT) [facility] Vancomycin Random 21.5 Therapeutic Ranges not established for random specimens ug/mL 02/23/2024 8:37 AM CDT [facility] Blood BLOOD SPECIMEN / Unknown Lab Venipuncture / Unknown 02/23/2024 7:37 AM CDT 02/23/2024 7:41 AM CDT Narrative [facility] - 02/23/2024 8:37 AM CDT See institution protocol. Justyn Galvez DO LAB - CHEMISTRY DIVINA OLVERA [facility] [address] [place] [id number], [facility] [phone] * (ABNORMAL) CBC W AUTO DIFFERENTIAL (02/23/2024 7:37 AM CDT) WBC 16.8(H) 4.0 - 10.7 x10E9/L 02/23/2024 7:47 AM T [facility] RBC Count 3.20(L) 3.90 - 5.20 x10E12/L 02/23/2024 7:47 AM [facility] Hemoglobin 9.7(L) 11.9 - 15.8 g/dL 02/23/2024 7:47 AM [facility] Hematocrit 30.4(L) 34.8 - 46.1 % 02/23/2024 7:47 AM [facility] MCV 95.0 80.0 - 98.0 fL 02/23/2024 7:47 AM [facility] MCH 30.3 26.7 - 33.6 pg 02/23/2024 7:47 AM [facility] MCHC 31.9 31.7 - 36.3 g/dL 02/23/2024 7:47 AM [facility] RDW-CV 14.0 11.3 - 14.8 % 02/23/2024 7:47 AM [facility] Platelet Count 422(H) 150 - 420 x10E9/L 02/23/2024 7:47 AM [facility] MPV 8.6 7.8 - 11.4 fL 02/23/2024 7:47 AM [facility] Neutrophil % 63.0 41.0 - 74.0 % 02/23/2024 7:47 AM [facility] Lymphocyte % 15.6(L) 17.0 - 47.0 % 02/23/2024 7:47 AM [facility] Monocyte % 7.7 3.0 - 11.0 % 02/23/2024 7:47 AM [facility] Eosinophil % 10.7(H) 0.0 - 7.0 % 02/23/2024 7:47 AM T [facility] Basophil % 0.4 0.0 - 1.6 % 02/23/2024 7:47 AM THE [facility] Immature Granulocytes % 2.6(H) 0.0 - 1.0 % 02/23/2024 7:47 AM [facility] Neutrophil Absolute 10.60(H) 1.60 - 7.50 x10E9/L 02/23/2024 7:47 AM [facility] Lymphocyte Absolute 2.62 1.00 - 4.40 x10E9/L 02/23/2024 7:47 AM [facility] Monocyte Absolute 1.30(H) 0.15 - 1.00 x10E9/L 02/23/2024 7:47 AM [facility] Eosinophil Absolute 1.80(H) 0.00 - 0.60 x10E9/L 02/23/2024 7:47 AM [facility] Basophil Absolute 0.06 0.00 - 0.13 x10E9/L 02/23/2024 7:47 AM [facility] NRBC 0.4(H) <=0.0 /100 WBC 02/23/2024 7:47 AM [facility] Blood BLOOD SPECIMEN / Unknown Lab Venipuncture / Unknown 02/23/2024 7:37 AM CDT 02/23/2024 7:44 AM CDT Justyn Galvez DO LAB - HEMATOLOGY ORD ERABLES Performing Organization Address City/State/[facility] Co de Phone Number [facility] [address] [place] [phone] [phone] * MAGNESIUM BLOOD (02/23/2024 7:37 AM CDT) Magnesium 2.2 1.6 - 2.6 mg/dL 02/23/2024 8:14 AM [facility] Blood BLOOD SPECIMEN / Unknown Lab Venipuncture / Unknown 02/23/2024 7:37 AM CDT 02/23/2024 7:44 AM CDT Justyn Galvez LAB - CHEMISTRY ORDE WADE [address] [address], [facility] [phone] * (ABNORMAL) PHOSPHORUS BLOOD (02/23/2024 7:37 AM CDT) Phosphorus 5.3(H) 2.9 - 5.1 mg/dL 02/23/2024 8:14 AM [facility] Blood BLOOD SPECIMEN / Unknown Lab Venipuncture / Unknown 02/23/2024 7:37 AM CDT 02/23/2024 7:44 AM CDT Justyn Galvez LAB - CHEMISTRY ORDMichaela OLVERA Performing Organization Address [facility]/ZIP Co de Phone Number [address] [address], [facility] [phone] * (ABNORMAL) BASIC METABOLIC PANEL (CALCIUM TOTAL) (02/23/2024 7:37 AM CDT) BUN 22 7 - 26 mg/dL 02/23/2024 8:14 AM [facility] Creatinine 5.35(H) 0.56 - 0.96 mg/dL 02/23/2024 8:14 AM [facility] Sodium 138 136 - 145 mmol/L 02/23/2024 8:14 AM [facility] Potassium 4.0 3.5 - 4.5 mmol/L 02/23/2024 8:14 AM [facility] Chloride 102 98 - 107 mmol/L 02/23/2024 8:14 AM [facility] CO2 26 22 - 29 mmol/L 02/23/2024 8:14 AM [facility] Glucose 128(H) 70 - 115 mg/dL 02/23/2024 8:14 AM [facility] Calcium 8.5 8.4 - 10.2 mg/dL 02/23/2024 8:14 AM [facility] Anion Gap 10 6 - 16 02/23/2024 8:14 AM [facility] BUN/Creatinine Ratio 4(L) 7 - 23 02/23/2024 8:14 AM [facility] Osmolality Calculated 291 275 - 295 mOsm/kg 02/23/2024 8:14 AM [facility] eGFR by CKD-EPI 10(L) >=90 mL/min/1.7 3 m2 02/23/2024 8:14 AM [facility] Blood BLOOD SPECIMEN / Unknown Lab Venipuncture / Unknown 02/23/2024 7:37 AM CDT 02/23/2024 7:44 AM CDT Justyn Galvez DO LAB - CHEMISTRY DIVINA OLVERA [facility] [address] [place] [address], [facility] [phone] * (ABNORMAL) HEMOGLOBIN A1C (02/23/2024 7:37 AM CDT) Hemoglobin A1c 6.5(H) <=5.6 % 02/23/2024 9:34 AM [facility] Estimated Average Glucose 140 mg/dL 02/23/2024 9:34 AM [facility] Comment: HbA1c Interpretation: Normal : < 5.7% Pre-diabetes: 5.7-6.4% Diabetes: Equal to or greater than 6.5% Test results diagnostic of diabetes should be repeated for confirmation. Treatment target values recommended by ADA and other clinical organizations should be used to evaluate metabolic control in patients. Reference: [place] [employer], Standards of Care in Diabetes -2020 In patients 70 years and older consider HbA1c target range of 7.0-7.5% (Reference: Anthony Dillard et al. JAMDA. 2012) The Sebia assay for the measurement of HbA1c is a National Glycohemoglobin Standardization Program (NGSP) certified method. Blood BLOOD SPECIMEN / Unknown Lab Venipuncture / Unknown 02/23/2024 7:37 AM CDT 02/23/2024 7:44 AM CDT Justyn Galvez DO LAB - CHEMISTRY DIVINA OLVERA [facility] [address] [place] [address], [place] [phone] * (ABNORMAL) GLUCOSE - POINT OF CARE (02/23/2024 5:10 AM CDT) Glucose WB/POC 127(H) 70 - 115 mg/dL 02/23/2024 5:15 AM CDT [facility] Specimen Type Cap Fingerstick 2023 5:15 AM CDT [facility] Blood BLOOD SPECIMEN / Unknown 02/23/2024 5:10 AM CDT 02/23/2024 5:15 AM CDT Justyn Romeroel LAB - POINT OF CARE ORDERABLES Performing Organization Address [facility]/ZIP Co de Phone Number [facility] [address] [place] [address], [facility] [phone] * (ABNORMAL) URINALYSIS REFLEX TO MICROSCOPIC NO CULTURE (02/23/2024 12:39 AM CDT) Color UA Yellow Straw, Yellow 02/23/2024 12:53 AM CDT [facility] Clarity UA Cloudy(A) Clear 02/23/2024 12:53 AM T [facility] Specific Hallie UA 1.013 1.005 - 1.030 02/23/2024 12:53 AM T [facility] pH UA 6.0 5.0 - 8.0 pH 02/23/2024 12:53 AM T [facility] Protein UA 3+(A) Negative 02/23/2024 12:53 AM CDT [facility] Glucose UA 3+(A) Negative 02/23/2024 12:53 AM T [facility] Ketone UA Negative Negative 02/23/2024 12:53 AM T [facility] Bilirubin UA Negative Negative 02/23/2024 12:53 AM CDT [facility] Blood UA 1+(A) Negative 02/23/2024 12:53 AM T [facility] Nitrite UA Negative Negative 02/23/2024 12:53 AM T [facility] Leukocyte Esterase 3+(A) Negative 02/23/2024 12:53 AM T [facility] Urobilinogen UA Negative Negative mg/dL 02/23/2024 12:53 AM [facility] RBC UA 51-100(A) None Seen, 0-2, 3-5 /HPF 02/23/2024 12:53 AM T [facility] WBC UA >100(A) None Seen, 0-5 /HPF 02/23/2024 12:53 AM T [facility] Bacteria UA Trace(A) None /HPF 02/23/2024 12:53 AM T [facility] Yeast Budding UA Occasional( A) None /HPF 02/23/2024 12:53 AM [facility] Squamous Epithelial Cells UA 11-20(A) None Seen, 0-2, 3-5 /HPF 02/23/2024 12:53 AM T [facility] Mucus UA 1+ /LPF 02/23/2024 12:53 AM [facility] Amorphous Crystals Rare(A) None /HPF 02/23/2024 12:53 AM [facility] Urine URINE SPECIMEN OBTAINED BY CLEAN CATCH PROCEDURE / Unknown Collection / Unknown 02/23/2024 12:39 AM CDT 02/23/2024 12:45 AM CDT Narrative [facility] - 02/23/2024 12:53 AM CDT Justyn Galvez DO LAB - URINALYSIS ORD ERABLES Performing Organization Address City/State/[facility] Co de Phone Number [facility] [address] [place] [address], [facility] [phone] * (ABNORMAL) GLUCOSE - POINT OF CARE (02/23/2024 12:11 AM CDT) Glucose WB/POC 242(H) 70 - 115 mg/dL 02/23/2024 12:16 AM T [facility] Specimen Type Cap Fingerstick 2023 12:16 AM [facility] Blood BLOOD SPECIMEN / Unknown 02/23/2024 12:11 AM CDT 02/23/2024 12:16 AM CDT [facility] LAB - POINT OF CARE ORDERABLES Performing Organization Address City/[facility]/ZIP Co de Phone Number [facility] [address] [place] [address], [place] [phone] * (ABNORMAL) MRSA DNA PCR (02/22/2024 11:59 PM CDT) Pathologist [facility] MRSA DNA by PCR Detected( A) Not detected 02/23/2024 3:29 AM CDT [facility] Microbiology SPECIMEN FROM NASAL FOSSAE / Unknown Collection / Unknown 02/22/2024 11:59 PM CDT 02/23/2024 12:02 AM CDT Narrative [facility] - 02/23/2024 3:29 AM CDT Methicillin-resistant Staphylococcus aureus (MRSA) DNA is detected (presumed colonized with MRSA). Sebletonie Galvez LAB - MICROBIOLOGY O RDERABLES Performing Organization Address City/[facility]/ZIP Co de Phone Number [facility] [address] [place] [address], [facility] [phone] * PATHOLOGY SMEAR BODY FLUID (02/22/2024 10:56 PM CDT) Pathologist [facility] Path Review Fluid Confirmed 02/23/2024 10:50 PM CDT [facility] Fluid SYNOVIAL FLUID / Unknown Collection / Unknown 02/22/2024 10:56 PM CDT 02/23/2024 2:38 AM CDT Narrative [facility] - 02/23/2024 10:50 PM CDT Clinical history: This 33 year-old female patient with a PMH of ESRD (on MWF HD), HTN, sickle cell disease (recent diagnosis), and 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 Found to have MRSA bacteremia, PNA, osteomyelitis/abscess in the left pectoralis muscle, ??and multiple other soft tissue abscesses. Patient was transferred to [facility] on 02/22/24. There is now concern for R shoulder (and possibly L shoulder) septic arthritis in the setting of MRSA bacteremia. Of note, there is no known history of gout or pseudogout. Patient's R shoulder joint was aspirated and the synovial fluid was sent to the lab. Pertinent findings, synovial fluid cytospin preparation: -Acute inflammation, primarily neutrophilic -Background RBCs -No readily identifiable microorganisms -No clinically significant crystals upon examination under polarized light Comments: Correlation with clinical findings and final results of concurrent microbiology testing is required. Gail Montero MD Attending Physician Transfusion Medicine and Clinical Pathology Justyn Romeropercy OG LAB - PATHOLOGY/CYTO LOGY ORDERABLES Performing Organization Address City/[facility]/ZIP Co de Phone Number [address] [address], [facility] [phone] * CRYSTAL INDENTIFICATION SYNOVIAL FLUID (02/22/2024 10:56 PM CDT) Crystal Exam Fluid To be performed by Pathology. See Path Review. 02/23/2024 2:38 AM CDT [facility] Fluid SYNOVIAL FLUID / Unknown Collection / Unknown 02/22/2024 10:56 PM CDT 02/23/2024 2:38 AM CDT Sebletonie Galvez LAB - BODY FLUID ORD ERABLES Performing Organization Address [facility] Co de Phone Number [address] [address], [facility] [phone] * DIFFERENTIAL MANUAL FLUID (02/22/2024 10:55 PM CDT) Fluid Source Synovial 02/23/2024 12:36 AM CDT [facility] Body Fluid Total Cell Count 100 x10E6/L 02/23/2024 12:36 AM CDT [facility] Neutrophils Fluid Percent 94 % 02/23/2024 12:36 AM CDT [facility] Macrophages Fluid Percent 6 % 02/23/2024 12:36 AM CDT [facility] Fluid SYNOVIAL FLUID / Unknown Collection / Unknown 02/22/2024 10:55 PM CDT 02/22/2024 10:55 PM CDT Narrative [facility] - 02/23/2024 12:36 AM CDT No reference ranges established for body fluid differential cell counts. ??The test results must be integrated into the clinical context for interpretation. Justyn Galvez DO LAB - BODY FLUID ORD [facility] Performing Organization Address [facility]/ZIP Co de Phone Number [facility] [address] [place] [address], [facility] [phone] * (ABNORMAL) CELL COUNT W DIFFERENTIAL FLUID (02/22/2024 10:55 PM CDT) Fluid Source Synovial 02/23/2024 12:36 AM CDT [facility] Fluid Appearance BLOODY 02/23/2024 12:36 AM CDT [facility] Fluid Color PINK 02/23/2024 12:36 AM CDT [facility] Total Nucleated Cells Fluid 4,376(H) <=200 x10E6/L 02/23/2024 12:36 AM CDT [facility] RBC Count Fluid <2,000 Reference Range Not Established x10E6/L 02/23/2024 12:36 AM CDT [facility] Fluid SYNOVIAL FLUID / Unknown Collection / Unknown 02/22/2024 10:55 PM CDT 02/22/2024 10:55 PM CDT Narrative [facility] - 02/23/2024 12:36 AM CDT No reference ranges established for body fluid cell counts. Any reference ranges provided are derived from published literature. The test results must be integrated into the clinical context for interpretation. Justyn Galvez DO LAB - BODY FLUID ORD [facility] Organization Address City/State/ZIP Co de Phone Number [facility] [address] [place] [address], [facility] [phone] * CULTURE GC (02/22/2024 10:43 PM CDT) Culture Negative for Neisseria gonorrhoeae CHARLES 02/26/2024 8:36 AM CDT [facility] Microbiology SYNOVIAL FLUID / Unknown Collection / Unknown 02/22/2024 10:43 PM CDT 02/22/2024 10:57 PM CDT Justyn Galvez DO LAB - MICROBIOLOGY O RDERABLES Performing Organization Address City/[facility]/ZIP Co de Phone Number [facility] [address] [place] [address], [facility] [phone] * CULTURE FUNGUS OTHER+FUNGUS SMEAR (02/22/2024 10:43 PM CDT) Culture No fungus isolated CHARLES 03/22/2024 7:13 AM CDT [facility] Fungus Stain No yeast or hyphae seen 03/22/2024 7:13 AM CDT [facility] Microbiology SYNOVIAL FLUID / Unknown Collection / Unknown 02/22/2024 10:43 PM CDT 02/22/2024 10:57 PM CDT Justyn Galvez DO LAB - MICROBIOLOGY O RDERABLES Performing Organization Address [facility] Co de Phone Number [facility] [address] [place] [address], [facility] [phone] * CULTURE FLUID+GRAM STAIN (02/22/2024 10:43 PM CDT) Culture No growth CHARLES 02/26/2024 5:53 AM CDT [facility] Gram Stain No organisms seen 024 5:53 AM CDT [facility] Gram Stain Heavy Polymorphonuclear cells 02/26/2024 5:53 AM CDT [facility] Gram Stain Moderate Red blood cells 02/26/2024 5:53 AM CDT [facility] Fluid SYNOVIAL FLUID / Unknown Collection / Unknown 02/22/2024 10:43 PM CDT 02/22/2024 11:00 PM CDT Justyn Galvez DO LAB - MICROBIOLOGY O RDERABLES Performing Organization Address City/[facility]/ZIP Co de Phone Number [facility] [address] [place] [address], [facility] [phone] * CULTURE ANAEROBE (02/22/2024 10:43 PM CDT) Culture No anaerobic organisms isolated CHARLES 02/29/2024 1:30 PM CDT [facility] Microbiology SYNOVIAL FLUID / Unknown Collection / Unknown 02/22/2024 10:43 PM CDT 02/22/2024 10:57 PM CDT Justyn Romeroel LAB - MICROBIOLOGY O RDERABLES Performing Organization Address City/[facility]/ZIP Co de Phone Number [facility] [address] [place] [address], [facility] [phone] * CULTURE AFB+SMEAR (02/22/2024 10:43 PM CDT) Culture No acid-fast bacillus isolated 04/05/2024 7:20 AM CDT [facility] AFB Smear No acid-fast bacilli seen 04/05/2024 7:20 AM CDT [facility] Microbiology SYNOVIAL FLUID / Unknown Collection / Unknown 02/22/2024 10:43 PM CDT 02/22/2024 10:57 PM CDT Justyn Galvez LAB - MICROBIOLOGY O RDERABLES Performing Organization Address [facility]/ZIP Co de Phone Number [facility] [address] [place] [address], [facility] [phone] * CULTURE BLOOD (02/22/2024 10:23 PM CDT) Culture No growth day 5 CHARLES 02/28/2024 2:02 AM CDT [facility] Blood PERIPHERAL BLOOD / Unknown Lab Venipuncture / Unknown 02/22/2024 10:23 PM CDT 02/22/2024 10:33 PM CDT Justyn Galvez DO LAB - MICROBIOLOGY O RDERABLES Performing Organization Address City/[facility]/ZIP Co de Phone Number [facility] [address] [place] [address], [facility] [phone] * (ABNORMAL) DIFFERENTIAL MANUAL (02/22/2024 10:14 PM CDT) Neutrophil % 68 41 - 74 % 02/23/2024 1:01 AM CDT [facility] Lymphocyte % 13(L) 17 - 47 % 02/23/2024 1:01 AM [facility] Monocyte % 8 3 - 11 % 02/23/2024 1:01 AM [facility] Eosinophil % 11(H) 0 - 7 % 02/23/2024 1:01 AM [facility] Neutrophil Absolute 12.24(H) 1.60 - 7.50 x10E9/L 02/23/2024 1:01 AM [facility] Lymphocyte Absolute 2.34 1.00 - 4.40 x10E9/L 02/23/2024 1:01 AM [facility] Monocyte Absolute 1.44(H) 0.15 - 1.00 x10E9/L 02/23/2024 1:01 AM [facility] Eosinophil Absolute 1.98(H) 0.00 - 0.60 x10E9/L 02/23/2024 1:01 AM [facility] RBC Morphology REVIEWED 02/23/2024 1:01 AM [facility] Polychromatic Cells MODERATE(A) (none) 02/23/2024 1:01 AM [facility] Schistocytes FEW(A) (none) 02/23/2024 1:01 AM [facility] Large Platelets PRESENT(A) (none) 1:01 AM [facility] Blood BLOOD SPECIMEN / Unknown Lab Venipuncture / Unknown 02/22/2024 10:14 PM CDT 02/22/2024 10:52 PM T Justyn Galvez DO LAB - HEMATOLOGY ORD ERABLES [facility] [address] [place] [address], [facility] [phone] * HCG BETA BLOOD QUANTITATIVE (02/22/2024 10:14 PM CDT) Beta-hCG Total Quantitative <3 mIU/mL 02/22/2024 11:26 PM [facility] Comment: HCG Numeric Result Interpretation: ? Non- [...] SPECIMEN / Unknown Lab Venipuncture / Unknown 02/22/2024 10:14 PM CDT 02/22/2024 10:52 PM CDT Justyn Galvez DO LAB - CHEMISTRY RAADMichaela OLVERA Performing Organization Address [facility]/ZIP Co de Phone Number [address] [address], [place] [phone] * CULTURE BLOOD (02/22/2024 10:14 PM CDT) Culture No growth day 5 CAHRLES 02/28/2024 2:02 AM CDT [facility] Blood PERIPHERAL BLOOD / Unknown Lab Venipuncture / Unknown 02/22/2024 10:14 PM CDT 02/22/2024 10:33 PM CDT Justyn Galvez DO LAB - MICROBIOLOGY O RDERABLES Performing Organization Address [facility] Co de Phone Number [facility] [address] [place] [address], [facility] [phone] * PHOSPHORUS BLOOD (02/22/2024 10:14 PM CDT) Phosphorus 5.0 2.9 - 5.1 mg/dL 02/22/2024 11:21 PM CDT [facility] Blood BLOOD SPECIMEN / Unknown Lab Venipuncture / Unknown 02/22/2024 10:14 PM CDT 02/22/2024 10:52 PM CDT Justyn Galvez DO LAB - CHEMISTRY RAADMichaela OLVERA Performing Organization Address [facility] Co de Phone Number [address] [address], [place] [phone] * MAGNESIUM BLOOD (02/22/2024 10:14 PM CDT) Pathologist [facility] Magnesium 2.2 1.6 - 2.6 mg/dL 02/22/2024 11:21 PM CDT [facility] Blood BLOOD SPECIMEN / Unknown Lab Venipuncture / Unknown 02/22/2024 10:14 PM CDT 02/22/2024 10:52 PM CDT Justyn Galvez DO LAB - CHEMISTRY ORDE RABLES Performing Organization Address [facility]/ZIP Co de Phone Number [address] [address], [facility] [phone] * PT-INR [facility] (02/22/2024 10:14 PM CDT) Pathologist [facility] PT 14.6 12.1 - 14.8 Seconds 02/22/2024 11:21 PM CDT [facility] INR 1.2 See Comment 02/22/2024 11:21 PM T [facility] Comment:The suggested therap eutic range for standard coumadin (warfarin) therapy is an INR of 2.0-3.0. For high-risk patients (Mechanical Mitral Valve Prosthesis, etc.), the suggested prophylactic therapeutic range is an INR of 2.5-3.5. Blood BLOOD SPECIMEN / Unknown Lab Venipuncture / Unknown 02/22/2024 10:14 PM CDT 02/22/2024 10:52 PM CDT Justyn Galvez DO LAB - COAGULATION OR DERABLES [address] [address], [facility] [phone] * LACTIC ACID BLOOD (02/22/2024 10:14 PM CDT) Pathologist [facility] Lactic Acid-Stat 1.3 <=2.0 mmol/L 02/22/2024 11:06 PM CDT [facility] Blood BLOOD SPECIMEN / Unknown Lab Venipuncture / Unknown 02/22/2024 10:14 PM CDT 02/22/2024 10:42 PM CDT Sebletonie Galvez LAB - CHEMISTRY RAADE WADE [facility] [address] [place] [address], [facility] [phone] * (ABNORMAL) COMPREHENSIVE METABOLIC PANEL (02/22/2024 10:14 PM CDT) BUN 21 7 - 26 mg/dL 02/22/2024 11:21 PM [facility] Creatinine 4.88(H) 0.56 - 0.96 mg/dL 02/22/2024 11:21 PM [facility] Sodium 136 136 - 145 mmol/L 02/22/2024 11:21 PM [facility] Potassium 4.1 3.5 - 4.5 mmol/L 02/22/2024 11:21 PM [facility] Chloride 100 98 - 107 mmol/L 02/22/2024 11:21 PM [facility] CO2 26 22 - 29 mmol/L 02/22/2024 11:21 PM [facility] Glucose 261(H) 70 - 115 mg/dL 02/22/2024 11:21 PM [facility] Calcium 8.8 8.4 - 10.2 mg/dL 02/22/2024 11:21 PM [facility] Protein Total 8.1 6.0 - 8.3 g/dL 02/22/2024 11:21 PM [facility] Albumin 1.5(L) 3.4 - 5.0 g/dL 02/22/2024 11:21 PM [facility] Bilirubin Total 0.2 0.2 - 1.2 mg/dL 02/22/2024 11:21 PM [facility] Alkaline Phosphatase 221(H) 40 - 150 U/L 02/22/2024 11:21 PM [facility] ALT 11 5 - 55 U/L 02/22/2024 11:21 PM [facility] AST 7 5 - 34 U/L 02/22/2024 11:21 PM [facility] Anion Gap 10 6 - 16 02/22/2024 11:21 PM [facility] BUN/Creatinine Ratio 4(L) 7 - 23 02/22/2024 11:21 PM [facility] Osmolality Calculated 294 275 - 295 mOsm/kg 02/22/2024 11:21 PM [facility] Albumin/Globulin Ratio 0.2(L) 1.1 - 2.3 02/22/2024 11:21 PM [facility] eGFR by CKD-EPI 12(L) >=90 mL/min/1.7 3 m2 02/22/2024 11:21 PM [facility] Blood BLOOD SPECIMEN / Unknown Lab Venipuncture / Unknown 02/22/2024 10:14 PM CDT 02/22/2024 10:52 PM CDT Justyn Galvez DO LAB - CHEMISTRY RAADE WADE Performing Organization Address City/State/[facility] Co de Phone Number [facility] [address] [place] [phone] [phone] * (ABNORMAL) CBC W AUTO DIFFERENTIAL (02/22/2024 10:14 PM CDT) WBC 18.0(H) 4.0 - 10.7 x10E9/L 02/23/2024 1:01 AM [facility] RBC Count 3.23(L) 3.90 - 5.20 x10E12/L 02/23/2024 1:01 AM [facility] Hemoglobin 9.6(L) 11.9 - 15.8 g/dL 02/23/2024 1:01 AM [facility] Hematocrit 30.5(L) 34.8 - 46.1 % 02/23/2024 1:01 AM [facility] MCV 94.4 80.0 - 98.0 fL 02/23/2024 1:01 AM [facility] MCH 29.7 26.7 - 33.6 pg 02/23/2024 1:01 AM [facility] MCHC 31.5(L) 31.7 - 36.3 g/dL 02/23/2024 1:01 AM CDT [facility] RDW-CV 13.7 11.3 - 14.8 % 02/23/2024 1:01 AM CDT [facility] Platelet Count 485(H) 150 - 420 x10E9/L 02/23/2024 1:01 AM CDT [facility] MPV 9.1 7.8 - 11.4 fL 02/23/2024 1:01 AM T [facility] NRBC 0.4(H) <=0.0 /100 WBC 02/23/2024 1:01 AM CDT [facility] Blood BLOOD SPECIMEN / Unknown Lab Venipuncture / Unknown 02/22/2024 10:14 PM CDT 02/22/2024 10:52 PM CDT Justyn Galvez DO LAB - HEMATOLOGY ORD ERABLES [address] [id number], [facility] [phone] * XR SHOULDER RIGHT 2VW OR MORE (02/22/2024 10:06 PM CDT) Anatomical Region Laterality Modality Upper Extremity Radiographic Nissa ging 02/23/2024 10:1 2 AM CDT Impressions 02/23/2024 10:18 AM CDT IMPRESSION: 1. No acute osseous abnormality. 2. Several foci of soft tissue gas are suggested around the shoulder, potentially reflecting infection or postprocedural gas. > Interpreting Provider: Xander De Guzman MD on 02/23/2024 10:18 AM Narrative 02/23/2024 10:18 AM CDT PROCEDURE: ??XR SHOULDER RIGHT 2VW OR MORE DATE/TIME OF EXAM: ??02/22/2024 10:06 PM CLINICAL INFORMATION: None relevant/not provided if blank. 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 FINDINGS: No fracture or dislocation is present. The joint spaces are normal. No erosions are seen. There are again several foci of lucency in the soft tissues around the shoulder suggestive of soft tissue gas. A right internal jugular central venous catheter is visible. Procedure Note Xander De Guzman MD - 02/23/2024 PROCEDURE: XR SHOULDER RIGHT 2VW OR MORE DATE/TIME OF EXAM: 02/22/2024 10:06 PM CLINICAL INFORMATION: None relevant/not provided if blank. 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 FINDINGS: No fracture or dislocation is present. The joint spaces are normal. No erosions are seen. There are again several foci of lucency in the soft tissues around the shoulder suggestive of soft tissue gas. A rightinternal jugular central venous catheter is visible. IMPRESSION: 1. No acute osseous abnormality. 2. Several foci of soft tissue gas are suggested around the shoulder, potentially reflecting infection or postprocedural gas. > Interpreting Provider: Xander De Guzman MD on 02/23/2024 10:18 AM Justyn Galvez DO DIAGNOSTIC IMAGING O RDERABLES * XR SHOULDER LEFT 2VW OR MORE (02/22/2024 10:06 PM CDT) Anatomical Region Laterality Modality Upper Extremity Radiographic Nissa ging 02/23/2024 10:1 7 AM CDT Impressions 02/23/2024 10:25 AM CDT IMPRESSION: No acute fracture or dislocation of the left shoulder is identified. No evidence of abnormal intra-articular or periarticular soft tissue gas collection. > Dictated by Jean-Claude Sanchez MD (residential mortgage manager). I, Jed Dale MD have personally reviewed and interpreted this examination/study. 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 There is no acute fracture. The glenohumeral and acromioclavicular joints are in anatomic alignment. Bone density and texture are normal. The visible lung appears normal. 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 There is no acute fracture. The glenohumeral and acromioclavicularjoints are in anatomic alignment. Bone density and texture are normal. Thevisible lung appears normal. IMPRESSION: No acute fracture or dislocation of the left shoulder is identified. No evidence of abnormal intra-articular or periarticular soft tissue gas collection. > Dictated by Jean-Claude Sanchez MD (residential mortgage manager). I, Jed Dale MD have personally reviewed and interpreted this examination/study. > Interpreting Provider: Jed Dale MD on 02/23/2024 10:25 AM Justyn Galvez DO DIAGNOSTIC IMAGING O RDERABLES * XR CHEST 1VW PORTABLE (02/22/2024 9:23 PM CDT) Anatomical Region Laterality Modality Chest Radiographic Nissa ging 02/23/2024 9:30 AM CDT Narrative 02/23/2024 10:02 AM CDT PROCEDURE: ??XR CHEST 1VW PORTABLE, DATE/TIME OF EXAM: ??02/22/2024 9:23 PM, LOCATION ??[facility] INDICATION: J18.9: Pneumonia due to infectious organism, unspecified laterality, unspecified part of lung ADDITIONAL CLINICAL INFORMATION: Ordering Provider Reason For Exam: ??PNA Comparison: Chest x-ray from 05/17/2023 FINDINGS/IMPRESSION: Interval placement of a right IJ approach central venous access catheter which terminates in the right atrium. There is no pulmonary consolidation, pleural effusion, or pneumothorax. The heart size is normal. ?? Report dictated by Jean-Claude Sanchez MD (residential mortgage manager). Xander Kim MD have personally reviewed and interpreted this examination/study. > Interpreting Provider: Xander De Guzman MD on 02/23/2024 10:02 AM Procedure Note Xander De Guzman MD - 02/23/2024 PROCEDURE: XR CHEST 1VW PORTABLE, DATE/TIME OF EXAM: 02/22/2024 9:23PM, LOCATION [facility] INDICATION: J18.9: Pneumonia due to infectious organism, unspecified laterality, unspecified part of lung ADDITIONAL CLINICAL INFORMATION: Ordering Provider Reason For Exam: PNA Comparison: Chest x-ray from 05/17/2023 FINDINGS/IMPRESSION: Interval placement of a right IJ approach central venous access catheter which terminates in the right atrium. There is no pulmonary consolidation, pleural effusion, or pneumothorax. The heart size is normal. Report dictated by Jean-Claude Sanchez MD (residential mortgage manager). IXander MD have personally reviewed and interpreted this examination/study. 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 ([facility]) Pneumonia due to infectious organism, unspecified laterality, unspecified part of lung 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, unspecified ulcer stage ([facility]) Shoulder abscess Cellulitis and abscess of upper arm and forearm ESRD (end stage renal disease) ([facility]) End stage renal disease 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 ([facility]) Essential hypertension MRSA bacteremia Bacteremia S/P AKA (above knee amputation) unilateral, left ([facility]) 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 ([facility]) Anemia Anemia, unspecified ESRD (end stage renal disease) ([facility]) End stage renal disease 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, with long-term current use of insulin ([facility]) Insomnia Insomnia, unspecified Leukocytosis Leukocytosis, unspecified Hypoalbuminemia Other disorders of plasma protein metabolism documented in this encounter Administered Medications Inactive Administered Medications - up to 3 most recent administrations Medication Order MAR Action Action Date Dose Rate Site 0.9% NaCl infusion Intravenous, CONTINUOUS PRN, Starting on Fri02/25/24 at 1012, Until Fri02/25/24 at 1012, Intra-op $ New Bag/Syringe 02/25/2024 10:12 AM CDT 100 mL 0.9% NaCl injection 1-10 mL 1-10 mL, Intracatheter, PRN, Other, peripheral line flush, Starting on Fri02/22/24 at 2055, Until Fri03/02/24 at 1827, Flush peripheral IV catheter with 1-10 mL of normal saline before and after medications and prn to clear blood from the line or to verify patency. $ Given 02/26/2024 3:53 PM CDT 10 mL 0.9% NaCl injection 3 mL 3 mL, Intracatheter, EVERY 8 HOURS, First dose on Fri02/22/24 at 2200, Until Discontinued, Flush peripheral IV catheter with 3 mL of normal saline every 8 hours. $ Given 03/02/2024 5:11 AM CDT 3 mL $ Given 03/01/2024 9:45 PM CDT 3 mL $ Given 03/01/2024 6:48 AM CDT 3 mL acetaminophen (Tylenol) tablet 500 mg 500 mg, Oral, EVERY 4 HOURS, First dose (after last modification) on Fri02/23/24 at 0400, Until Discontinued, Patient preference for lesser PRN [...] patient cannot tolerate oral intake $ Given 03/02/2024 12:22 PM CDT 500 mg $ Given 03/02/2024 8:37 AM CDT 500 mg $ Given 03/01/2024 12:12 PM CDT 500 mg alteplase (Cathflo Activase) injection 2 mg 2 mg, Intracatheter, ONCE DIALYSIS, 1 dose, On Heide 02/26/24 at 1030, Reconstitute with 2.2 mL sterile water to give 1 mg/mL solution for catheter clearance. Must use filter needle when withdrawing from reconstituted vial. Retain in catheter for 0.5 to 2 hours, then withdraw. DO NOT infuse Refrigerate $ Given 02/26/2024 10:56 AM CDT 2 mg alteplase (Cathflo Activase) injection 2 mg 2 mg, Intracatheter, ONCE DIALYSIS, 1 dose, On Heide 02/26/24 at 1030, Reconstitute with 2.2 mL sterile water to give 1 mg/mL solution for catheter clearance. Must use filter needle when withdrawing from reconstituted vial. Retain in catheter for 0.5 to 2 hours, then withdraw. DO NOT infuse Refrigerate $ Given 02/26/2024 10:35 AM CDT 2 mg amLODIPine (Norvasc) tablet 10 mg 10 mg, Oral, DAILY, First dose on 02/23/24 at 0900, Until Discontinued $ Given 03/02/2024 8:38 AM CDT 10 mg $ Given 03/01/2024 7:49 AM CDT 10 mg $ Given 02/29/2024 9:16 AM CDT 10 mg bisacodyl (Dulcolax) suppository 10 mg 10 mg, Rectal, DAILY PRN, Constipation, Starting on 02/28/24 at 0004, Until 03/02/24 at 1827 carvedilol (Coreg) tablet 12.5 mg 12.5 mg, Oral, 2 TIMES DAILY WITH MEALS, First dose on Fri02/22/24 at 2230, Until Discontinued, Take with food $ Given 03/02/2024 8:37 AM CDT 12.5 mg $ Given 03/01/2024 4:24 PM CDT 12.5 mg $ Given 03/01/2024 7:50 AM CDT 12.5 mg cefepime (Maxipime) 2,000 mg in 0.9% NaCl IV 50 mL IVPB 2,000 mg (2 g), at 100 mL/hr, Intravenous, EVERY 8 HOURS, First dose on Fri02/22/24 at 2200, Until Discontinued, Indication for anti-infective therapy: Suspected infection, Site of anti-infective therapy: Blood $ New Bag/Syringe 02/23/2024 8:35 AM CDT 2,000 mg 100 mL/hr $ New Bag/Syringe 02/23/2024 1:01 AM CDT 2,000 mg 100 mL /hr dextrose 10 % IV bolus 12.5 g, at 468.75 mL/hr, Intravenous, PRN, Other, Bedside Glucose less than 70 mg/dL -If NOT able to eat and/or NPO and with IV Access, Starting on Fri02/22/24 at 2132, Until Fri03/02/24 at 1827, If NOT able to eat and/or NPO [...] NPO and with IV Access, Starting on Fri02/22/24 at 2132, Until Fri03/02/24 at 1827, If NOT able to eat and/or NPO [...] IV STAT NOTIFY PROVIDER OF HYPOGLYCEMIC EVENT. fentaNYL (PF) (Sublimaze) injection ONCE PRN, Starting on Fri02/25/24 at 1012, Until Fri02/25/24 at 1012, Intra-op $ Given 02/25/2024 10:12 AM CDT 50 mcg fentaNYL (PF) (Sublimaze) injection ONCE PRN, Starting on Fri02/25/24 at 1057, Until Fri02/26/24 at 0838, Intra-op $ Given 02/25/2024 10:57 AM CDT 50 mcg gabapentin (Neurontin) capsule 100 mg 100 mg, Oral, 3 TIMES DAILY, First dose on Fri02/22/24 at 2215, Until Discontinued $ Given 03/02/2024 8:38 AM CDT 100 mg $ Given 03/01/2024 9:45 PM CDT 100 mg $ Given 03/01/2024 12:12 PM CDT 100 mg glucagon (Glucagen) injection 1 mg 1 mg, Subcutaneous, PRN, Bedside Glucose less than 70 mg/dL - If NOT able to eat and/or NPO and withOUT IV Access, Starting on Fri02/22/24 at 2, Until Fri03/02/24 at 1827, If NOT able to eat and/or NPO [...] Glucose less than 70 mg/dL, Starting on Fri02/22/24 at 2132, Until Fri03/02/24 at 1827, If able to take oral medications: For [...] EVENT. heparin injection 1,000 Units 1,000 Units, Intracatheter, ONCE DIALYSIS, 1 dose, On Fri02/27/24 at 0000, FOR USE IN DIALYSIS ONLY $ Given 02/27/2024 7:45 AM CDT 1,000 Uni ts heparin injection 1,000 Units 1,000 Units, Intracatheter, EVERY HOUR, 6 doses, First dose on Fri02/28/24 at 0800, Last dose on Fri02/28/24 at 1300, FOR USE IN DIALYSIS ONLY $ Given 02/28/2024 1:54 PM CDT 1,000 Units heparin injection 1,000 Units 1,000 Units, Intracatheter, EVERY HOUR, 6 doses, First dose on Fri03/02/24 at 0700, Last dose on Fri03/02/24 at 1200, FOR USE IN DIALYSIS ONLY $ Given 03/02/2024 4:43 PM CDT 1,000 Units $ Given 03/02/2024 3:43 PM CDT 1,000 Units $ Given 03/02/2024 2:43 PM CDT 1,000 Units heparin injection 2,000 Units 2,000 Units, Intracatheter, ONCE DIALYSIS, 1 dose, On Fri02/28/24 at 0800, FOR USE IN DIALYSIS ONLY $ Given 02/28/2024 1:54 PM CDT 2,000 Uni ts heparin injection 2,000 Units 2,000 Units, Intracatheter, ONCE DIALYSIS, 1 dose, On Fri03/02/24 at 0700, FOR USE IN DIALYSIS ONLY $ Given 03/02/2024 1:38 PM CDT 2,000 Uni ts heparin injection 4,600 Units 4,600 Units, Intracatheter, DIALYSIS PRN, catheter flush in dialysis; divide evenly between both lumens, Starting on Fri02/23/24 at 1453, Until Fri03/02/24 at 1827, In dialysis to keep catheter line from clotting $ Given 03/02/2024 5:05 PM CDT 4,100 Units $ Given 02/28/2024 4:52 PM CDT 4,600 Units $ Given 02/26/2024 3:14 PM CDT 4,600 Units heparin injection 5,000 Units 5,000 Units, Subcutaneous, EVERY 8 HOURS, First dose (after last modification) on Fri02/23/24 at 1400, Until Discontinued $ Given 03/02/2024 5:11 AM CDT 5,000 Units Abd Left Upper Quadrant $ Given 03/01/2024 9:45 PM CDT 5,000 Units A bd Left Upper Quadrant $ Given 03/01/2024 12:11 PM CDT 5,000 Units Abd Left Lower Quadrant heparin injection 500 Units 500 Units, Intracatheter, EVERY HOUR, 3 doses, First dose on Fri02/27/24 at 0800, Last dose on Fri02/27/24 at 1000, FOR USE IN DIALYSIS ONLY $ Given 02/27/2024 9:45 AM CDT 500 Units $ Given 02/27/2024 8:45 AM CDT 500 Units heparin injection 7,500 Units 7,500 Units, Subcutaneous, EVERY 8 HOURS, First dose on Fri02/22/24 at 2200, Until Discontinued $ Given 02/23/2024 5:40 AM CDT 7,500 Units Abdominal Tissue $ Given 02/22/2024 11:32 PM CDT 7,500 Units Abdominal Tissue heparin injection ONCE PRN, Starting on Fri02/25/24 at 1106, Until Fri02/26/24 at 0838, Intra-op $ Given 02/25/2024 11:06 AM CDT 500 Units heparinized saline 2 units/mL infusion Other, CONTINUOUS PRN, Starting on Fri02/25/24 at 1036, Until Fri02/26/24 at 0838, Intra-op $ New Bag/Syringe 02/25/2024 10:36 AM CDT 500 mL hydrOXYzine HCl (Atarax) tablet 25 mg 25 mg, Oral, 3 TIMES DAILY PRN, Itching, Starting on Fri02/28/24 at 0934, Until Fri03/02/24 at 1827 $ Given 02/28/2024 10:17 AM CDT 25 mg insulin aspart (NovoLOG) pen 0-12 Units 0-12 Units, Subcutaneous, EVERY 6 HOURS, First dose on Fri02/23/24 at 0000, Until Discontinued, Standard Dose: Correction Insulin BG (mg/dL) Corrective Action LESS than 70 follow Hypoglycemic guidelines 70-140 NO Correction insulin 141-180 GIVE 2 units of insulin 181-220 GIVE 4 units of insulin 221-260 GIVE 6 units of insulin 261-300 GIVE 8 units of insulin 301-350 GIVE 10 units of insulin Greater than 350 GIVE 12 units of insulin and notify physician. DO NOT HOLD if Patient is NPO. If patient has orders for Mealtime insulin combine and give at same time $ Given 02/24/2024 7:28 PM CDT 2 Units Abd Left Lower Quadrant $ Given 02/24/2024 12:45 PM CDT 4 Units R ight Arm $ Given 02/24/2024 2:21 AM CDT 6 Units Ab d Left Lower Quadrant insulin aspart (NovoLOG) pen 0-6 Units 0-6 Units, Subcutaneous, 3 TIMES DAILY WITH MEALS, First dose on Fri02/25/24 at 0800, Until Discontinued, Low Dose: Correction Insulin Bedside [...] give at the same time. $ Given 02/25/2024 6:04 PM CDT 3 Units Right Arm insulin aspart (NovoLOG) pen 4 Units 4 Units, Subcutaneous, 3 TIMES DAILY WITH MEALS, First dose on Fri02/25/24 at 0800, Until Discontinued, Hold MEALTIME insulin if patient is NPO or eating less than 50% of meal -OR- If carb intake for the meal is less than 30 grams. $ Given 02/28/2024 12:44 PM CDT 4 Units Abd Right Upper Quadrant $ Given 02/28/2024 9:31 AM CDT 4 Units Ab d Right Upper Quadrant $ Given 02/25/2024 6:03 PM CDT 4 Units Ri ght Arm lidocaine (Lidoderm) 5 % patch 1 patch 1 patch, Administer over 12 Hours, EVERY 24 HOURS, First dose on Fri02/23/24 at 1100, Until Discontinued, Apply to L shoulder and remove patch after a max of 12 hours of application within a 24 hour period. $ Applied 03/02/2024 8:39 AM CDT 1 patch See Taras cor[place] $ Applied 02/29/2024 12:15 PM CDT 1 patch L eft Arm $ Applied 02/28/2024 12:44 PM CDT 1 patch S ee Comments lidocaine (Lidoderm) 5 % patch 1 patch 1 patch, Administer over 12 Hours, EVERY 24 HOURS, First dose on Fri02/29/24 at 1315, Until Discontinued, Apply to R shoulder and remove patch after a max of 12 hours of application within a 24 hour period. $ Applied 03/02/2024 8:39 AM CDT 1 patch See [place] $ Applied 02/29/2024 2:53 PM CDT 1 patch Ri ght Arm lidocaine (Xylocaine) 1 % injection Subcutaneous, ONCE PRN, Starting on Fri02/25/24 at 1018, Until Fri02/25/24 at 1018, Intra-op $ Given 02/25/2024 10:18 AM CDT 8 mL Left Arm lidocaine (Xylocaine) 1 % injection Subcutaneous, ONCE PRN, Starting on Fri02/25/24 at 1052, Until Fri02/26/24 at 0838, Intra-op $ Given 02/25/2024 10:52 AM CDT 10 mL See Comments lisinopril (Prinivil; Zestril) tablet 20 mg 20 mg, Oral, DAILY, First dose on Fri02/23/24 at 0900, Until Discontinued $ Given 03/02/2024 8:39 AM CDT 20 mg $ Given 03/01/2024 7:49 AM CDT 20 mg $ Given 02/29/2024 9:16 AM CDT 20 mg melatonin tablet 3 mg 3 mg, Oral, AT BEDTIME PRN, Insomnia, Starting on Fri02/22/24 at 2131, Until Fri03/02/24 at 1827 $ Given 02/23/2024 9:06 PM CDT 3 mg midazolam (Versed) injection Intravenous, ONCE PRN, Starting on Fri02/25/24 at 1012, Until Fri02/25/24 at 1012, Intra-op $ Given 02/25/2024 10:12 AM CDT 1 mg midazolam (Versed) injection Intravenous, ONCE PRN, Starting on Fri02/25/24 at 1056, Until Heide 02/26/24 at 0838, Intra-op $ Given 02/25/2024 10:56 AM CDT 1 mg ondansetron (Zofran) injection 4 mg 4 mg, Intravenous, EVERY 8 HOURS PRN, Nausea/Vomiting, Starting on Fri03/01/24 at 2235, Until Fri03/02/24 at 1827, Administer over 2 to 5 minutes. $ Given 03/01/2024 10:45 PM CDT 4 mg oxyCODONE (immediate release) (Roxicodone) tablet 10 mg 10 mg, Oral, EVERY 6 HOURS PRN, Severe Pain, Starting on Fri02/23/24 at 0002, Until Fri02/24/24 at 1057, Patient preference for lesser PRN pain meds [...] patient cannot tolerate oral intake $ Given 02/24/2024 6:24 AM CD T 10 mg $ Given 02/24/2024 12:03 AM CDT 10 mg $ Given 02/23/2024 6:13 PM CDT 10 mg oxyCODONE (immediate release) (Roxicodone) tablet 10 mg 10 mg, Oral, EVERY 4 HOURS PRN, Severe Pain, Starting on Fri02/24/24 at 1100, Until Fri03/02/24 at 1827, Patient preference for lesser PRN pain meds [...] patient cannot tolerate oral intake $ Given 03/02/2024 12:21 PM CDT 10 mg $ Given 03/01/2024 12:56 AM CDT 10 mg $ Given 02/29/2024 8:24 PM CDT 10 mg oxyCODONE (immediate release) (Roxicodone) tablet 5 mg 5 mg, Oral, EVERY 4 HOURS PRN, Mild Pain, Moderate Pain, Starting on Fri02/24/24 at 1100, Until Fri03/02/24 at 1827, Patient preference for lesser PRN pain meds [...] patient cannot tolerate oral intake $ Given 03/02/2024 9:00 AM CDT 5 mg $ Given 03/01/2024 4:25 PM CDT 5 mg $ Given 03/01/2024 8:00 AM CDT 5 mg polyethylene glycol 3350 (Miralax) packet 17 g 17 g, Oral, DAILY, First dose on Fri02/26/24 at 1000, Until Discontinued, Mix in 8 ounces of water, juice, soda, coffee or tea prior to administration $ Given 02/29/2024 9:16 AM CDT 17 g $ Given 02/28/2024 9:29 AM CDT 17 g $ Given 02/27/2024 11:28 AM CDT 17 g prochlorperazine (Compazine) injection 5 mg 5 mg, Intravenous, EVERY 6 HOURS PRN, Nausea/Vomiting, Starting on Fri03/01/24 at 2235, Until Fri03/02/24 at 1827, Max intravenous rate = 5 mg/min renal vitamin (Dialyvite) tablet 1 tablet 1 tablet, Oral, DAILY, First dose on Fri02/24/24 at 0900, Until Discontinued $ Given 03/02/2024 8:38 AM CDT 1 tablet $ Given 03/01/2024 7:49 AM CDT 1 tablet $ Given 02/29/2024 9:15 AM CDT 1 tablet senna (Senokot) tablet 8.6 mg 8.6 mg, Oral, DAILY, First dose on Fri02/26/24 at 1000, Until Discontinued $ Given 03/01/2024 7:50 AM CDT 8.6 mg $ Given 02/29/2024 9:16 AM CDT 8.6 mg $ Given 02/28/2024 9:28 AM CDT 8.6 mg sevelamer carbonate (Renvela) tablet 1,600 mg 1,600 mg, Oral, 3 TIMES DAILY WITH MEALS, First dose (after last modification) on Fri03/02/24 at 0800, Until Discontinued $ Given 03/02/2024 12:22 PM CDT 1,600 mg $ Given 03/02/2024 8:38 AM CDT 1,600 mg sevelamer carbonate (Renvela) tablet 800 mg 800 mg, Oral, 3 TIMES DAILY WITH MEALS, First dose on Fri02/24/24 at 0800, Until Discontinued $ Given 03/01/2024 4:25 PM CDT 800 mg $ Given 03/01/2024 12:11 PM CDT 800 mg $ Given 03/01/2024 7:49 AM CDT 800 mg vancomycin (Vancocin) 1,000 mg in 0.9% NaCl IV 250 mL IVPB 1,000 mg, at 250 mL/hr, Intravenous, ONCE, 1 dose, On Fri02/24/24 at 1800, To be given only after dialysis. If HD does not occur, do not give dose and contact pharmacy., Indication for anti-infective therapy: Documented infection, Site of anti-infective therapy: Blood $ New Bag/Syringe 02/24/2024 7:28 PM CDT 1,000 mg 250 mL/hr vancomycin (Vancocin) 1,000 mg in 0.9% NaCl IV 250 mL IVPB 1,000 mg, at 250 mL/hr, Intravenous, ONCE, 1 dose, On Fri02/29/24 at 1100, Indication for anti-infective therapy: Documented infection, Site of anti-infective therapy: Blood $ New Bag/Syringe 02/29/2024 12:15 PM CDT 1,000 mg 250 mL/hr vancomycin (Vancocin) 1,500 mg in 500 mL NaCl IVPB Premix 1,500 mg (rounded from 1,483.5 mg = 15 mg/kg ? 98.9 kg), at 333.33 mL/hr, Intravenous, ONCE, 1 dose, On Heide 02/26/24 at 1800, Indication for anti-infective therapy: Suspected infection, Site of anti-infective therapy: Bone/Joint $ New Bag/Syringe 02/26/2024 6:38 PM CDT 1,500 mg 333.33 mL/hr vancomycin (Vancocin) IV dose per pharmacy Does not apply, DIRECTED, Starting on Fri02/22/24 at 2121, Until Fri03/02/24 at 1827, Vancomycin dosing/monitoring will be managed by pharmacy. Critical lab values should be reported to pharmacy., Indication for anti-infective therapy: Suspected infection, Site of anti-infective therapy: Blood documented in this encounter Active and Recently Administered Medications Times are shown in CDT. Scheduled Medication Order 02/29/2024 03/01/2024 03/02/2024 0.9% NaCl injection 3 mL(Linked Group 1) 3 mL, Intracatheter, EVERY 8 HOURS, First dose on Fri02/22/24 at 2200, Until Discontinued, Flush peripheral IV catheter with 3 mL of normal saline every 8 hours. 0518 ($ Given - Provider: Lenin Fang RN)1454 ($ Given - Provider: Leticia Jurado RN)2025 ($ Given - Provider: Lenin Fang RN) 0648 ($ Given - Provider: Lenin Fang RN)1525 (Canceled Entry - Provider: Kerrie Fraire RN)2145 ($ Given - Provider: Briana Luna, JIMMIE) 0511 ($ Given - Provider: Briana Luna RN)1705 (Not Administered - Provider: Ying Rodriguez RN - Reason: Other - Comment: patient off unit, then discharged) acetaminophen (Tylenol) tablet 500 mg 500 mg, Oral, EVERY 4 HOURS, First dose (after last modification) on Fri02/23/24 at 0400, Until Discontinued, Patient preference for lesser PRN [...] first unless patient cannot tolerate oral intake 0002 (Not Administered - Provider: Lenin Fang RN - Reason: Refused-Patient)0227 ($ Given - Provider: Lenin Fang RN)0916 ($ Given - Provider: Leticia Adrien, RN)1210 ($ Given - Provider: Leticia Jurado RN)1745 ($ Given - Provider: Leticia Jurado RN)2024 ($ Given - Provider: Lenin Fang RN) 0014 ($ Given - Provider: Lenin Fang RN)0425 (Not Administered - Provider: Lenin Fang RN - Reason: Refused-Patient)0750 ($ Given - Provider: Kerrie Fraire RN)1212 ($ Given - Provider: Kerrie Fraire RN)1629 (Not Administered - Provider: Kerrie Fraire RN - Reason: Refused-Patient)2145 (Not Administered - Provider: Briana Luna RN - Reason: Refused-Patient)2305 (Not Administered - Provider: Briana Luna RN - Reason: Refused-Patient) 0338 (Not Administered - Provider: Briana Luna RN - Reason: Refused-Patient)0837 ($ Given - Provider: Ying Rodriguez RN)1222 ($ Given - Provider: Salina Jenkins RN)1706 (Not Administered - Provider: Ying Rodriguez RN - Reason: Other - Comment: patient off unit, then discharged) amLODIPine (Norvasc) tablet 10 mg 10 mg, Oral, DAILY, First dose on Fri02/23/24 at 0900, Until Discontinued 0916 ($ Given - Provider: Leticia Jurado RN) 0749 ($ Given - Provider: Kerrie Fraire RN) 0838 ($ Given - Provider: Ying Rodriguez, JIMMIE) carvedilol (Coreg) tablet 12.5 mg 12.5 mg, Oral, 2 TIMES DAILY WITH MEALS, First dose on 02/22/24 at 2230, Until Discontinued, Take with food 0916 ($ Given - Provider: Leticia Jurado RN)1745 ($ Given - Provider: Leticia Jurado RN) 0750 ($ Given - Provider: Kerrie Fraire RN)1624 ($ Given - Provider: Kerrie Fraire RN) 0837 ($ Given - Provider: Ying Rodriguez RN) gabapentin (Neurontin) capsule 100 mg 100 mg, Oral, 3 TIMES DAILY, First dose on Fri02/22/24 at 2215, Until Discontinued 0916 ($ Given - Provider: Leticia Jurado RN)1454 ($ Given - Provider: Leticia Jurado RN)2023 ($ Given - Provider: Lenin Fang RN) 0749 ($ Given - Provider: Kerrie Fraire, JIMMIE)1212 ($ Given - Provider: Kerrie Fraire, RN)2145 ($ Given - Provider: Briana Luna, JIMMIE) 0838 ($ Given - Provider: Ying Rodriguez, JIMMIE)1706 (Not Administered - Provider: Ying Rodriguez RN - Reason: Other - Comment: patient off unit, then discharged) heparin injection 1,000 Units ()(Linked Group 2) 1,000 Units, Intracatheter, EVERY HOUR, 6 doses, First dose on Fri03/02/24 at 0700, Last dose on Fri03/02/24 at 1200, FOR USE IN DIALYSIS ONLY 1000 (Due)1100 (Due)1200 (Due)1443 ($ Given - Provider: Mari Nolan RN)1543 ($ Given - Provider: Mari Nolan RN)1643 ($ Given - Provider: Mari Nolan RN) heparin injection 2,000 Units (COMPLETED)(Linked Group 2) 2,000 Units, Intracatheter, ONCE DIALYSIS, 1 dose, On Fri03/02/24 at 0700, FOR USE IN DIALYSIS ONLY 1338 ($ Given - Provider: Mari Nolan RN) heparin injection 5,000 Units 5,000 Units, Subcutaneous, EVERY 8 HOURS, First dose (after last modification) on Fri02/23/24 at 1400, Until Discontinued 0518 ($ Given - Provider: Lenin Fang RN)1454 ($ Given - Provider: Leticia Jurado RN)202 ($ Given - Provider: Lenin Fang RN) 0648 ($ Given - Provider: Lenin Fang RN)1211 ($ Given - Provider: Kerrie Fraire, JIMMIE)2145 ($ Given - Provider: Briana Luna, JIMMIE) 0511 ($ Given - Provider: Briana Luna, JIMMIE)1706 (Not Administered - Provider: Ying Rodriguez RN - Reason: Other - Comment: patient off unit, then discharged) insulin aspart (NovoLOG) pen 0-6 Units 0-6 Units, Subcutaneous, 3 TIMES DAILY WITH MEALS, First dose on Fri02/25/24 at 0800, Until Discontinued, Low Dose: Correction Insulin Bedside [...] combine and give at the same time. 0917 (Not Administered - Provider: Leticia Jurado RN - Reason: Per Administration Instructions)1155 (Not Administered - Provider: Leticia Jurado RN - Reason: Per Administration Instructions)1759 (Not Administered - Provider: Leticia Jurado RN - Reason: Per Administration Instructions) 0802 (Not Administered - Provider: Kerrie Fraire RN - Reason: Per Administration Instructions)1214 (Not Administered - Provider: Kerrie Fraire RN - Reason: Per Administration Instructions)1826 (Not Administered - Provider: Kerrie Fraire RN - Reason: Per Administration Instructions) 0828 (Not Administered - Provider: Ying Rodriguez RN - Reason: Per Administration Instructions)1223 (Not Administered - Provider: Salina Jenkins RN - Reason: Per Administration Instructions) lidocaine (Lidoderm) 5 % patch 1 patch 1 patch, Administer over 12 Hours, EVERY 24 HOURS, First dose on Fri02/23/24 at 1100, Until Discontinued, Apply to L shoulder and remove patch after a max of 12 hours of application within a 24 hour period. 0003 (Removed - Provider: Lenin Fang, RN)1215 ($ Applied - Provider: Leticia Jurado RN) 0014 (Removed - Provider: Lenin Fang RN)0802 (Not Administered - Provider: Kerrie Fraire RN - Reason: Refused-Patient) 0839 ($ Applied - Provider: Ying Rodriguez, JIMMIE)203 (Due: Removed - Provider: Ying Rodriguez RN) lidocaine (Lidoderm) 5 % patch 1 patch 1 patch, Administer over 12 Hours, EVERY 24 HOURS, First dose on Fri02/29/24 at 1315, Until Discontinued, Apply to R shoulder and remove patch after a max of 12 hours of application within a 24 hour period. 1453 ($ Applied - Provider: Leticia Jurado RN) 0255 (Removed - Provider: Lenin Fang RN)0750 (Not Administered - Provider: Kerrie Fraire RN - Reason: Refused-Patient) 0839 ($ Applied - Provider: Ying Rodriguez RN)2038 (Due: Removed - Provider: Ying Rodriguez RN) lisinopril (Prinivil; Zestril) tablet 20 mg 20 mg, Oral, DAILY, First dose on Fri02/23/24 at 0900, Until Discontinued 0916 ($ Given - Provider: Leticia Jurado RN) 0749 ($ Given - Provider: Kerrie Fraire RN) 0839 ($ Given - Provider: Ying Rodriguez, JIMMIE) polyethylene glycol 3350 (Miralax) packet 17 g 17 g, Oral, DAILY, First dose on Fri02/26/24 at 1000, Until Discontinued, Mix in 8 ounces of water, juice, soda, coffee or tea prior to administration 0916 ($ Given - Provider: Leticia Jurado RN) 0750 (Not Administered - Provider: Kerrie Fraire RN - Reason: Refused-Patient) 0839 (Not Administered - Provider: Ying Rodriguez RN - Reason: Refused-Patient) renal vitamin (Dialyvite) tablet 1 tablet 1 tablet, Oral, DAILY, First dose on Fri02/24/24 at 0900, Until Discontinued 0915 ($ Given - Provider: Leticia Jurado RN) 0749 ($ Given - Provider: Kerrie Fraire RN) 0838 ($ Given - Provider: Ying Rodriguez, JIMMIE) senna (Senokot) tablet 8.6 mg 8.6 mg, Oral, DAILY, First dose on Fri02/26/24 at 1000, Until Discontinued 0916 ($ Given - Provider: Leticia Jurado RN) 0750 ($ Given - Provider: Kerrie Fraire RN) 0840 (Not Administered - Provider: Ying Rodriguez RN - Reason: Refused-Patient) sevelamer carbonate (Renvela) tablet 1,600 mg 1,600 mg, Oral, 3 TIMES DAILY WITH MEALS, First dose (after last modification) on Fri03/02/24 at 0800, Until Discontinued 0838 ($ Given - Provider: Ying Rodriguez, JIMMIE)1222 ($ Given - Provider: Salina Jenkins RN) sevelamer carbonate (Renvela) tablet 800 mg (CANCELED) 800 mg, Oral, 3 TIMES DAILY WITH MEALS, First dose on Fri02/24/24 at 0800, Until Discontinued 0915 ($ Given - Provider: Leticia Jurado RN)1210 ($ Given - Provider: Leticia Jurado RN)1745 ($ Given - Provider: Leticia Jurado RN) 0749 ($ Given - Provider: Kerrie Fraire, JIMMIE)1211 ($ Given - Provider: Kerrie Fraire, JIMMIE)1625 ($ Given - Provider: Kerrie Fraire RN) vancomycin (Vancocin) 1,000 mg in 0.9% NaCl IV 250 mL IVPB (COMPLETED) 1,000 mg, at 250 mL/hr, Intravenous, ONCE, 1 dose, On Fri02/29/24 at 1100, Indication for anti-infective therapy: Documented infection, Site of anti-infective therapy: Blood 1215 ($ New Bag/Syringe - Provider: Leticia Jurado RN)1315 (Stopped - Provider: Leticia Jurado RN) vancomycin (Vancocin) IV dose per pharmacy Does not apply, DIRECTED, Starting on Fri02/22/24 at 2121, Until Fri03/02/24 at 1827, Vancomycin dosing/monitoring will be managed by pharmacy. Critical lab values should be reported to pharmacy., Indication for anti-infective therapy: Suspected infection, Site of anti-infective therapy: Blood PRN Medication Order 02/29/2024 03/01/2024 03/02/2024 0.9% NaCl injection 1-10 mL(Linked Group 1) 1-10 mL, Intracatheter, PRN, Other, peripheral line flush, Starting on Fri02/22/24 at 2055, Until Fri03/02/24 at 1827, Flush peripheral IV catheter with 1-10 mL of normal saline before and after medications and prn to clear blood from the line or to verify patency. bisacodyl (Dulcolax) suppository 10 mg 10 mg, Rectal, DAILY PRN, Constipation, Starting on 02/28/24 at 0004, Until Fri03/02/24 at 1827 dextrose 10 % IV bolus(Linked Group 3) 12.5 g, at 468.75 mL/hr, Intravenous, PRN, Other, Bedside Glucose less than 70 mg/dL -If NOT able to eat and/or NPO and with IV Access, Starting on [place] 02/22/24 at 2132, Until Fri03/02/24 at 182, If NOT able to eat and/or NPO [...] EVENT. dextrose 10 % IV bolus(Linked Group 3) 25 g, at 937.5 mL/hr, Intravenous, PRN, Other, Bedside Glucose less than 70 mg/dL -If NOT able to eat and/or NPO and with IV Access, Starting on Fri02/22/24 at 2132, Until Fri03/02/24 at 182, If NOT able to eat and/or NPO [...] EVENT. glucagon (Glucagen) injection 1 mg(Linked Group 3) 1 mg, Subcutaneous, PRN, Bedside Glucose less than 70 mg/dL - If NOT able to eat and/or NPO and withOUT IV Access, Starting on 02/22/24 at 2132, Until Fri03/02/24 at 182, If NOT able to eat and/or NPO [...] Glucose less than 70 mg/dL, Starting on Fri02/22/24 at 2132, Until Fri03/02/24 at 1827, If able to take oral medications: For [...] NOTIFY PROVIDER OF HYPOGLYCEMIC EVENT. heparin injection 4,600 Units 4,600 Units, Intracatheter, DIALYSIS PRN, catheter flush in dialysis; divide evenly between both lumens, Starting on 02/23/24 at 1453, Until Fri03/02/24 at 1827, In dialysis to keep catheter line from clotting 1705 ($ Given - Provider: Mari Nolan RN - Comment: 2m mL in red lumen and 2.1 mL in blue lumen) hydrOXYzine HCl (Atarax) tablet 25 mg 25 mg, Oral, 3 TIMES DAILY PRN, Itching, Starting on 02/28/24 at 0934, Until Fri03/02/24 at 1827 melatonin tablet 3 mg 3 mg, Oral, AT BEDTIME PRN, Insomnia, Starting on 02/22/24 at 2131, Until Fri03/02/24 at 1827 ondansetron (Zofran) injection 4 mg(Linked Group 4) 4 mg, Intravenous, EVERY 8 HOURS PRN, Nausea/Vomiting, Starting on 03/01/24 at 2235, Until Fri03/02/24 at 182, Administer over 2 to 5 minutes. 2245 ($ Given - Provider: Briana Luna RN) oxyCODONE (immediate release) (Roxicodone) tablet 10 mg(Linked Group 5) 10 mg, Oral, EVERY 4 HOURS PRN, Severe Pain, Starting on Fri02/24/24 at 1100, Until Fri03/02/24 at 182, Patient preference for lesser PRN pain meds [...] first unless patient cannot tolerate oral intake 0227 ($ Given - Provider: Lenin Fang RN)1210 ($ Given - Provider: Leticia Jurado RN)2024 ($ Given - Provider: Lenin Fang RN) 0056 ($ Given - Provider: Lenin Fang RN)0800 (See Alternative - Provider: Kerrie Fraire RN)1625 (See Alternative - Provider: Krerie Fraire RN) 0900 (See Alternative - Provider: Ying Rodriguez RN)1221 ($ Given - Provider: Salina Jenkins RN - Comment: given before dialysis) oxyCODONE (immediate release) (Roxicodone) tablet 5 mg(Linked Group 5) 5 mg, Oral, EVERY 4 HOURS PRN, Mild Pain, Moderate Pain, Starting on Fri02/24/24 at 1100, Until Fri03/02/24 at 1827, Patient preference for lesser PRN pain meds [...] first unless patient cannot tolerate oral intake 0227 (See Alternative - Provider: Lenin Fang, RN)1210 (See Alternative - Provider: Leticia Jurado, RN)2024 (See Alternative - Provider: Lenin Fang, RN) 0056 (See Alternative - Provider: Lenin Fang, JIMMIE)0800 ($ Given - Provider: Kerrie Fraire, JIMMIE)1625 ($ Given - Provider: Kerrie Fraire, RN) 0900 ($ Given - Provider: Ying Rodriguez, RN)1221 (See Alternative - Provider: Salina Jenkins RN) prochlorperazine (Compazine) injection 5 mg(Linked Group 4) 5 mg, Intravenous, EVERY 6 HOURS PRN, Nausea/Vomiting, Starting on Fri03/01/24 at 2235, Until Fri03/02/24 at 1827, Max intravenous rate = 5 mg/min 2245 (See Alternative - Provider: Briana Luna, JIMMIE) Linked Groups Order Group 1: SALINE LOCK, INSERT AND MAINTAIN (CANCELED) Routine, CONTINUOUS, Starting on Fri02/22/24 at 2100, Until Specified, New collection And 0.9% NaCl injection 3 mLJump to med 3 mL, Intracatheter, EVERY 8 HOURS, First dose on Fri02/22/24 at 2200, Until Discontinued, Flush peripheral IV catheter with 3 mL of normal saline every 8 hours. And 0.9% NaCl injection 1-10 mLJump to med 1-10 mL, Intracatheter, PRN, Other, peripheral line flush, Starting on Fri02/22/24 at 2055, Until Fri03/02/24 at 182, Flush peripheral IV catheter with 1-10 mL of normal saline before and after medications and prn to clear blood from the line or to verify patency. Group 2: heparin injection 2,000 Units (COMPLETED)Jump to med 2,000 Units, Intracatheter, ONCE DIALYSIS, 1 dose, On Fri03/02/24 at 0700, FOR USE IN DIALYSIS ONLY And heparin injection 1,000 Units ()Jump to med 1,000 Units, Intracatheter, EVERY HOUR, 6 doses, First dose on Fri03/02/24 at 0700, Last dose on Fri03/02/24 at 1200, FOR USE IN DIALYSIS ONLY Group 3: dextrose 10 % IV bolusJump to med 12.5 g, at 468.75 mL/hr, Intravenous, PRN, Other, Bedside Glucose less than 70 mg/dL -If NOT able to eat and/or NPO and with IV Access, Starting on Fri02/22/24 at 2132, Until Fri03/02/24 at 1827, If NOT able to eat and/or NPO [...] NPO and with IV Access, Starting on Fri02/22/24 at 2132, Until Fri03/02/24 at 182, If NOT able to eat and/or NPO [...] NPO and withOUT IV Access, Starting on Fri02/22/24 at 2132, Until Fri03/02/24 at 1826, If NOT able to eat and/or NPO [...] use immediately and discard unused portion Group 4: ondansetron (Zofran) injection 4 mgJump to med 4 mg, Intravenous, EVERY 8 HOURS PRN, Nausea/Vomiting, Starting on Fri03/01/24 at 2235, Until Fri03/02/24 at 182, Administer over 2 to 5 minutes. Or prochlorperazine (Compazine) injection 5 mgJump to med 5 mg, Intravenous, EVERY 6 HOURS PRN, Nausea/Vomiting, Starting on Fri03/01/24 at 2235, Until Fri03/02/24 at 182, Max intravenous rate = 5 mg/min Group 5: oxyCODONE (immediate release) (Roxicodone) tablet 5 mgJump to med 5 mg, Oral, EVERY 4 HOURS PRN, Mild Pain, Moderate Pain, Starting on Fri02/24/24 at 1100, Until Fri03/02/24 at 182, Patient preference for lesser PRN pain meds [...] 4 HOURS PRN, Severe Pain, Starting on Fri02/24/24 at 1100, Until Fri03/02/24 at 1827, Patient preference for lesser PRN pain meds [...] documented as of this encounter Care Teams Histopath Tech Relationship Specialty Start Date End Date Cherise Marcelo PA-C [address] [place] [id number] PCP - General 02/23/24 documented as of this encounter
--- OUTSIDE RECORDS SUMMARY | 2024-11-17 03:02 | XMS_ITS | Encounter Summary ---
Author Organization [facility] Address [address] [place] [address] Care Team Providers Care Loom Starter Name Role Phone Unavailable Primary Care Provider Unavailabl e Reason for Visit * Reason Comments Post-Op Let aka amp Encounter Details Date Type Department Care Team (Late st Contact Info) Description 12/19/2022 10:30 AM LINING IRONER Office Visit [facility] Vascular Surgery [address] [address] Graeme Rodgers MD [address] OF [facility] [place] [address] S/P AKA (above knee amputation) unilateral, left (HCC) (Primary Dx) Social History Tobacco Use Types Packs/Day Years Used Date Smoking Tobacco: Never Smokeless Tobacco: Never Tobacco Cessation:Counseling Given: No Alcohol Use Standard Drinks/Week Comments Never 0 (1 standard drink = 0.6 oz pur e alcohol) AUDIT-C Answer Date Recorded Q1: How often do you have a drink containing alcohol? Never 12/06/2022 Q2: How many drinks containi ng alcohol do you have on a typical day when you are drinking? Patient does not drink Q3: How often do you have si x or more drinks on one occasion? Never 12/06/2022 Overall Financial Resource Strain (CARDIA) Answe r Date Recorded How hard is it for you to pa y for the very basics like food, housing, medical care, and heating? Not hard at all 12/03/2022 [facility] [place] [facility] - Occupational Stress Questionnaire Answer Date Recorded Do you feel stress - tense, restless, nervous, or anxious, or unable to sleep at night because your mind is troubled all the time - these days? Not at all 12/03/2022 Hunger Vital Sign Answer Date Recorded Within the past 12 months, y ou worried that your food would run out before you got the money to buy more. Never true 12/03/19 23 Within the past 12 months, t he food you bought just didn't last and you didn't have money to get more. Never true 12/03/2022 PRAPARE - Transportation Answer Date Re corded In the past 12 months, has l ack of transportation kept you from medical appointments or from getting medications? No 11/05 In the past 12 months, has l ack of transportation kept you from meetings, work, or from getting things needed for daily living? No 12/03/2022 Housing Stability Vital Sign Answer Ibrahima e Recorded In the last 12 months, was t here a time when you were not able to pay the mortgage or rent on time? No 12/03/2022 In the last 12 months, how many places have you lived? 1 12/03/2022 In the last 12 months, was t here a time when you did not have a steady place to sleep or slept in a jail (including now)? No 12/03/2022 Sex and Gender Information Value Date Recorded Sex Assigned at Not on file Gender Identity Not on file Sexual Orientation Not on file documented as of this encounter Last Filed Vital Signs Vital Sign Reading Time Taken Comments Blood Pressure 123/58 12/19/2022 10:27 AM LINING IRONER Pulse 82 12/19/2022 10:27 AM LINING IRONER Temperature 36.4 ??C (97.6 ??F) 12/19/2022 10:[address] Respiratory Rate - - Oxygen Saturation 100% 12/19/2022 10:27 AM LINING IRONER Inhaled Oxygen Concentration - - Weight 128.4 kg (283 lb) 12/19/2022 10:27 AM LINING IRONER Height 167.6 cm (5' 6 ) 12/19/2022 10:27 AM LINING IRONER Body Mass Index 45.68 12/19/2022 10:27 AM LINING IRONER documented in this encounter Functional Status Functional Status Response Date of Assess ment Is person deaf or have serious hearing difficult y? No 12/03/2022 Is person blind or have serious difficulty seein g? No 12/03/2022 Does person have serious dif ficulty walking/climbing stairs? Yes 12/03/2022 Does person have difficulty dressing/bathing? Ye s 12/03/2022 Does person have difficulty doing errands alone? Yes 12/03/2022 Cognitive Status Response Date of Assessm ent Does person have difficulty concentrating/remembering/making decisions? No 12/03/2022 documented as of this encounter Progress Notes * Graeme Rodgers MD - 12/19/2022 11:25 AM CST 2 weeks post-op from left AKA for necrotizing soft tissue infection of the foot Doing ok, no complaints of pain Left AKA stump is moderately swollen due to her morbid obesity (BMI 46) and lymphedema There is some serous drainage of the incision but no signs of infection Incision painted with betadine Will see her again in 2-3 weeks and plan to remove wili at that time if it looks ok Graeme Rodgers MD 12/19/2022 11:27 AM NG IRONER documented in this encounter Plan of Treatment Upcoming Encounters Date Type Department Care Team (Late st Contact Info) Description 11/22/2024 1:30 PM LINING IRONER Office Visit [facility] - Infectious Disease [address] [place] [address], [place] [address] Kash Ha MD [address] [place] [address] documented as of this encounter Visit Diagnoses Diagnosis S/P AKA (above knee amputation) unilateral, left (HCC)- Primary documented in this encounter
--- OUTSIDE RECORDS SUMMARY | 2024-11-17 03:02 | XMS_ITS | Encounter Summary ---
Author Organization [facility] Address [address] [address] Care Team Providers Care Plumber Apprentice Name Role Phone Cherise Patrick PA-C Primary Care Provider Reason for Visit * Reason Onset Date Comments Hospital Admission 04/24/2023 Encounter Details Date Type Department Care Team (Late st Contact Info) Description 04/24/2023 Telephone [facility] STANDARD [address] [place] [address] Sameer Navarro MD [facility] [phone] Hospital Admission Social History Tobacco Use Types Packs/Day Years Used Date Smoking Tobacco: Never Smokeless Tobacco: Never Alcohol Use Standard Drinks/Week Comments Never 0 (1 standard drink = 0.6 oz pur e alcohol) AUDIT-C Answer Date Recorded Q1: How often do you have a drink containing alcohol? Never 04/28/2023 Q2: How many drinks containi ng alcohol do you have on a typical day when you are drinking? Patient does not drink Q3: How often do you have si x or more drinks on one occasion? Never 04/28/2023 Overall Financial Resource Strain (CARDIA) Answe r Date Recorded How hard is it for you to pa y for the very basics like food, housing, medical care, and heating? Not hard at all 04/28/2023 [facility] [place] of Occupat ional Health - Occupational Stress Questionnaire Answer Date Recorded Do you feel stress - tense, restless, nervous, or anxious, or unable to sleep at night because your mind is troubled all the time - these days? Not at all 04/28/2023 Hunger Vital Sign Answer Date Recorded Within the past 12 months, y ou worried that your food would run out before you got the money to buy more. Never true 04/28/20 23 Within the past 12 months, t he food you bought just didn't last and you didn't have money to get more. Never true 04/28/2023 PRAPARE - Transportation Answer Date Re corded In the past 12 months, has l ack of transportation kept you from medical appointments or from getting medications? No 04/04 In the past 12 months, has l ack of transportation kept you from meetings, work, or from getting things needed for daily living? No 04/28/2023 Housing Stability Vital Sign Answer Ibrahima e Recorded In the last 12 months, was t here a time when you were not able to pay the mortgage or rent on time? No 04/28/2023 In the last 12 months, how many places have you lived? 1 04/28/2023 In the last 12 months, was t here a time when you did not have a steady place to sleep or slept in a correction (including now)? No 04/28/2023 Sex and Gender Information Value Date Recorded Sex Assigned at Not on file Gender Identity Not on file Sexual Orientation Not on file COVID-19 Exposure Response Date Recorded In the last 10 days, have yo u been in contact with someone who was confirmed or suspected to have Coronavirus/COVID-19? No / Unsure 04/26/2023 5:17 AM CDT documented as of this encounter Functional Status [...] No 12/03/2022 documented as of this encounter Miscellaneous Notes * Telephone Encounter - Sameer Navarro MD - 04/24/2023 12:21 PM CDT [facility] Outside Hospital Transfer Call Documentation Date:04/24/2023 Time:12:21 PM Patient: Gay Canales : 1990 Referring Facility Name: [facility] Reason for Transfer: Right foot debridement vs BKA Brief Description (including applicable labs, imaging, consultations): 32 year old??female??with past medical history of DM 2, HTN, HFpEF, ??morbid obesity, MDD , status post left AKA in November, at [facility] when she presented with necrotizing fasciitis and wet gangrene of the left foot. She has been admitted to outside hospital since April 15 with right foot diabetic ulceration. Was seen by surgery and recommended right BKA but she declined. She would like to get debridement and 2nd opinion here. Blood cultures were negative. Wound culture was positive for strep agalactiae. She is currently on daptomycin and Flagyl day # 9; and ID apparently recommended 6 weeks because of osteomyelitis of the right calcaneum which was noted in the imaging studies. Patient also was treated for GI bleed during this hospitalization. EGD was negative. Sigmoidoscopy showed hemorrhoid. No active GIbleeding now. Patient needs on arrival to [facility]: Medicine admissions resident (ask manipulator operator for Medicine Admission) to be notified of arrival. Consultation to (N/A if blank): Vascular/general surgery I have accepted this patient for transfer to [facility]. If patient awaiting bed for >24hours, an update on patient's clinical condition is requested. Signed:Sameer Navarro MD 04/24/2023 documented in this encounter Plan of Treatment Upcoming Encounters Date Type Department Care Team (Late st Contact Info) Description 11/22/2024 1:30 PM APPARATUS REPAIR MECHANIC Office Visit [facility] - Infectious Disease [facility] [place] [phone] Kash Ha MD [address] [place] [address] documented as of this encounter Visit Diagnoses Not on filedocumented in this encounter Additional Health Concerns Infection Onset Date Last Indicated Resolved Time CDIFF Under Investigation 05/02/2023 05/02/2023 8:29 AM CDT 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
--- OUTSIDE RECORDS SUMMARY | 2024-11-17 03:02 | XMS_ITS | Encounter Summary ---
Author Organization [facility] Address [address] [place] [address] Care Team Providers Care Cable Puller Name Role Phone Unavailable Primary Care Provider Unavailabl e Encounter Details Date Type Department Care Team (Latest Contact Info) Description 04/26/2023 Travel Social History Tobacco Use Types Packs/Day [...] and heating? Not hard at all 12/03/2022 [facility] [place] of Occupat ional Health - Occupational Stress [...] place to sleep or slept in a penitentiary (including now)? No 12/03/2022 Sex and Gender [...] No 12/03/2022 documented as of this encounter Plan of Treatment Upcoming Encounters Date Type Department Care Team (Late st Contact Info) Description 11/22/2024 1:30 PM POT LINER Office Visit [facility] - Infectious Disease [address] [facility] [place] [address] Kash Ha MD [address] [place] [address] documented as of this encounter Visit Diagnoses Not on filedocumented in this encounter
--- OUTSIDE RECORDS SUMMARY | 2024-11-17 03:02 | XMS_ITS | Encounter Summary ---
Author Organization [facility] Address [address] [facility] [facility] [place] [address] Care Team Providers Care Information Systems Specialist Name Role Phone Unavailable Primary Care Provider Unavailabl e Reason for Visit * Reason Onset Date Comments Follow-up 05/16/2023 Continuity of ca re after discharge Encounter Details Date Type Department Care Team (Late st Contact Info) Description 05/16/2023 Telephone [facility] - Infectious Disease [address] [place] [phone] Roxanna Roth, PAJose EnriqueC [address] [place] [address] Follow-up (Continuity of care after discharge) Social History Tobacco Use Types Packs/Day Years [...] and heating? Not hard at all 04/28/2023 [facility] [place] of Occupat ional Health - Occupational Stress [...] in a care home (including now)? No 04/28/2023 Sex and Gender [...] or have serious hearing difficult y? No 04/28/2023 Is person blind or have serious difficulty seein g? Yes 04/28/2023 Does person have serious dif ficulty walking/climbing stairs? Yes 04/28/2023 Does person have difficulty dressing/bathing? Ye s 04/28/2023 Does person have difficulty doing errands alone? Yes 04/28/2023 Cognitive Status Response Date of Assessm ent Does person have difficulty concentrating/remembering/making decisions? No 04/28/2023 documented as of this encounter Miscellaneous Notes * Telephone Encounter - Roxanna Roth PA-C - 05/16/2023 10:50 AM CDT [facility], phone [phone] for continuity of care after discharge. Gay [facility] [facility] 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 Current antibiotics: IV vancomycin, IV ceftriaxone, PO flagyl Weekly labs needed: CBC/ CMP / ESR / CRP I spoke with nurse Dickson. - I verified that patient is receiving her antibiotics (IV vancomycin, IV ceftriaxone, PO flagyl). The IV vancomycin dosing is currently held due to high vancomycin levels. - There is a nurse cattle manager who follows patient labs while at rehab center. - I relayed that patient has an appointment with [facility] clinic on 06/03/2023 at 0830 with an arrival time of 0815. - I asked to please fax weekly labs to ID clinic ([phone], attn: Roxanna Roth PA-C). JESSICA Sorensen PA-C Division of Infectious Diseases Pager: [phone] [facility] documented in this encounter Plan of Treatment Upcoming Encounters Date Type Department Care Team (Late st Contact Info) Description 11/22/2024 1:30 PM CROCHET MACHINE OPERATOR Office Visit [facility] - Infectious Disease [address] [place] [address], [place] [address] Kash Ha MD [address] [place] [address] documented as of this encounter Visit Diagnoses Not on filedocumented in this encounter
--- OUTSIDE RECORDS SUMMARY | 2024-11-17 03:02 | XMS_ITS | Encounter Summary ---
Author Organization [facility] Address [address] [facility] [place] [address] Care Team Providers Care Digital Sales Assistant Name Role Phone Unavailable Primary Care Provider Unavailabl e Reason for Visit * Reason Comments Post-Op Left aka Encounter Details Date Type Department Care Team (Late st Contact Info) Description 01/09/2023 9:45 AM STONE AND CONCRETE WASHER Office Visit [facility] Vascular Surgery [address] [address] Graeme Rodgers MD [address] [address] S/P AKA (above knee amputation) unilateral, left [...] and heating? Not hard at all 12/03/2022 [facility] [place] of Occupat ional Health [...] slept in a assisted (including now)? No 12/03/2022 Sex and Gender Information Value Date Recorded Sex Assigned at Not on file Gender Identity Not on file Sexual Orientation Not on file documented as of this encounter Last Filed Vital Signs Vital Sign Reading Time Taken Comments Blood Pressure 154/86 01/09/2023 10:04 AM STONE AND CONCRETE WASHER Pulse 80 01/09/2023 10:04 AM STONE AND CONCRETE WASHER Temperature 36.5 ??C (97.7 ??F) 01/09/2023 10:[address] Respiratory Rate - - Oxygen Saturation 94% 01/09/2023 10:04 AM STONE AND CONCRETE WASHER Inhaled Oxygen Concentration - - Weight 127 kg (280 lb) 01/09/2023 10:04 AM STONE AND CONCRETE WASHER Height 170.2 cm (5' 7 ) 01/09/2023 10:04 AM STONE AND CONCRETE WASHER Body Mass Index 43.85 01/09/2023 10:04 AM STONE AND CONCRETE WASHER documented in this encounter Functional Status Functional [...] as of this encounter Progress Notes * Bethanie Rodgers PA-C - 01/09/2023 10:29 AM CST 5 weeks post op from left AKA for necrotizing soft tissue infection of foot Has no complaints, has been doing daily dressing changes. Reports her wound doc is putting her on abx for possible infection L AKA stump still with significant edema 2/2 morbid obesity Wound with dehiscence in middle portion, picture in chart. Satartia removed today. Instructed to pain with betadine daily and cover with dressing Follow up in [address] Rodgers for wound check E AND CONCRETE WASHER documented in this encounter Plan of Treatment Upcoming Encounters Date Type Department Care Team (Late st Contact Info) Description 11/22/2024 1:30 PM STONE AND CONCRETE WASHER Office Visit [facility] - Infectious Disease [facility] [facility], [place] [address] Kash Ha MD [address] [place] [address] documented as of this encounter Visit Diagnoses Diagnosis S/P AKA (above knee amputation) unilateral, left (HCC)- Primary documented in this encounter
--- OUTSIDE RECORDS SUMMARY | 2024-11-17 03:02 | XMS_ITS | Encounter Summary ---
Author Organization [facility] Address [address] [facility] [address] [place] [address] Care Team Providers Care Food Quality Technician Name Role Phone Unavailable Primary Care Provider Unavailabl e Reason for Visit * Auth/Cert (Routine) Specialty Diagnoses / Procedures Referred By Jany t Referred To Contact Diagnoses RLE diabetic foot ulcer w/osteomyelitis Referral ID Status Reason Start Date Expiration Date Visits Re quested Visits Authorized [id number] 1 1 Encounter Details Date Type Department Care Team (Latest Contact Info) Description 04/26/2023 4:41 AM CDT - 05/09/2023 5:13 PM CDT Hospital Encounter [facility] [address] [place] [address] Sameer Navarro MD [address] [address] Erin Malone MD [address] [place] [address] Selam Person MD [address] [facility] [place] [address] Lavell Daly MD [address] [place] [address] Rafa Patel MD [address] [place] [address] Joe Vargas MD [address] [place] [address] Hospitalist Discharge Disposition: Half-Way Facility Social History Tobacco Use Types Packs/Day [...] and heating? Not hard at all 04/28/2023 [place] [place] [facility] - Occupational Stress [...] place to sleep or slept in a halfway (including now)? No 04/28/2023 Sex and Gender [...] AM CDT documented as of this encounter Last Filed Vital Signs Vital Sign Reading Time Taken Comments Blood Pressure 135/79 05/09/2023 7:58 AM CDT Pulse 78 05/09/2023 7:58 AM CDT Temperature 37 ??C (98.6 ??F) 05/09/2023 7:58 AM CDT Respiratory Rate 18 05/09/2023 7:58 AM CDT Oxygen Saturation 100% 05/09/2023 7:58 AM CDT Inhaled Oxygen Concentration - - Weight 140 kg (308 lb 9.6 oz) 04/26/2023 4:50 AM CDT Height 170.2 cm (5' 7 ) 04/26/2023 4:50 AM CDT Body Mass Index 48.33 04/26/2023 4:50 AM CDT documented in this encounter Functional [...] No 04/28/2023 documented as of this encounter Discharge Summaries * Joe Vargas MD - 05/09/2023 5:13 PM CDT Hospital Discharge Summary Patient ID: Gay Canales [id number] 32 year old 1990 Admit date: 04/26/2023 Discharge date: 05/09/2023 Admitting Physician: Sameer Navarro MD Discharge Physician: Joe Vargas MD Present on Admission: ??? 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 (CMS/HCC) ??? CHF (congestive heart failure) (CMS/HCC) ??? S/P AKA (above knee amputation) unilateral, left (CMS/HCC) ??? Anemia Discharge Diagnoses: Osteomyelitis of the foot Admission Condition: Fair Discharged Condition: Fair Indication for Admission: Hospital Course: Gay Canales is a 32 year old woman with a history of diabetes mellitus who transferred from an outside healthcare facility on April 26 for a second opinion regarding surgical management of a right diabetic foot ulcer with associated osteomyelitis. She was seen by vascular surgery and Infectious Disease at [facility] and it was recommended that she undergo right acimq-iti-dqmy amputation but she declined that intervention. Attempting a trial of management with IV antibiotics and planning for reassessment at the end of that treatment. Duration of IV Abx (Vancomycin, ceftriaxone) for 6 weeks 04/26/2023 - Anticipated End of therapy 06/07/2023. Consults: Vascular Surgery and Infectious Diseases Pending Labs and Studies: Weekly CBC, CMP Discharge Communication: Patient's hospital course was conveyed to SNF. Significant Diagnostic Studies: CBC: Recent Labs Lab Units 05/09/23 0630 05/08/23 0635 05/07/23 0616 WBC 10??3/uL 7.9 8.2 7.5 RBC 10??6/uL 2.85* 2.96* 2.91* HGB g/dL 7.6* 7.8* 7.8* HCT % 25.9* 26.8* 26.7* BMP: Recent Labs Lab Units 05/09/23 0357 05/08/23 0635 05/07/23 0616 NA mmol/L 142 142 144 CL mmol/L 112* 109* 110* CO2 mmol/L 23 29 26 BUN mg/dL 17 16 16 CREATININE mg/dL 1.83* 1.80* 1.70* CALCIUM mg/dL 8.5 8.2* 8.3* Phosphorus: Recent Labs Lab Units 05/09/23 0357 05/08/23 0635 05/07/23 0616 PHOS mg/dL 4.8 4.7 4.8 LFTs: Recent Labs Lab Units 05/09/23 0357 05/08/23 0635 05/07/23 0616 ALB g/dL 1.6* 1.4* 1.4* Discharge Exam: Blood pressure 135/79, pulse 78, temperature 98.6 ??F (37 ??C), temperature source Oral, resp. rate18, height 1.702 m (5' 7 ), weight (!) 140 kg (308 lb 9.6 oz), last menstrual period 08/08/2022, SpO2 100 %, not currently . GEN: Alert in NAD CHEST: Clear to auscultation bilaterally HEART: Regular rate and rhythm, Nl S1 and S2 No gallops. GI: Abdomen soft and non tender, non-distended, +BS EXT: No edema. + Left AKA and Right heel ulcer. PSYCH: Alert and oriented to person place time and situation. Good mood, appropriate affect. Disposition: SNF Patient Instructions: Medication List START taking these medications cefTRIAXone 2 g 2,000 mg in 0.9% NaCl IV 0.9 % 50 mL 2,000 (two thousand) mg by Intravenous route every 24 hours for 28 days insulin lispro 100 UNIT/ML pen Commonly known as: HumaLOG;ADMelog Inject 0 (zero) Units to 6 (six) Units subcutaneously 3 times daily with meals Replaces: insulin lispro 100 UNIT/ML vial melatonin 3 MG tablet Take 1 (one) tablet by mouth nightly as needed for Insomnia metroNIDAZOLE 500 MG tablet Commonly known as: Flagyl Take 1 (one) tablet by mouth every 8 hours for 29 days vancomycin 750 mg in 0.9% NaCl IV 0.9 % 250 mL 750 (seven hundred fifty) mg by Intravenous route every 24 hours for 28 days CONTINUE taking these medications acetaminophen 500 MG tablet Commonly known as: Tylenol Take 1 (one) tablet by mouth every 6 hours Maximum allowable Acetaminophen amount = 4 Grams (4000 mg) / 24 hours. Alcohol Prep 70 % USE ONE SWAB TO CLEAN SKIN FOUR TIMES DAILY BEFORE TESTING amLODIPine 10 MG tablet Commonly known as: Norvasc Take 1 (one) tablet by mouth once daily carvedilol 12.5 MG tablet Commonly known as: Coreg Take 1 (one) tablet by mouth 2 times daily with morning and evening meal FeroSul 325 (65 FE) MG tablet Generic drug: ferrous sulfate nystatin 887001 UNIT/GM powder Commonly known as: Mycostatin Apply to affected area 3 times daily ONETOUCH DELICA PLUS 33G EXTRA FINE LANCET USE ONE LANCET TO PRICK FINGER FOUR TIMES DAILY FOR BLOOD GLUCOSE TESTING OneTouch Verio Reflect w/Device Kit Use 1 kit 4 times daily USE METER TO CHECK BLOOD GLUCOSE FOUR TIMES DAILY Reasons: CALL [facility] WHENDELIVERING X4364 OneTouch Verio test strip Generic drug: blood glucose USE ONE STRIP TO TEST BLOOD SUGAR FOUR TIMES DAILY potassium chloride ER 20 MEQ tablet Commonly known as: Klor-Con M Take 1 (one) tablet by mouth daily with breakfast STOP taking these medications amoxicillin-clavulanate 875-125 MG tablet Commonly known as: Augmentin furosemide 40 MG tablet Commonly known as: Lasix insulin glargine vial Commonly known as: Lantus insulin lispro 100 UNIT/ML vial Commonly known as: HumaLOG Replaced by: insulin lispro 100 UNIT/ML pen Where to Get Your Medications Information about where to get these medications is not yet available Ask your nurse or doctor about these medications ?? cefTRIAXone 2 g 2,000 mg in 0.9% NaCl IV 0.9 % 50 mL ?? insulin lispro 100 UNIT/ML pen ?? melatonin 3 MG tablet ?? metroNIDAZOLE 500 MG tablet ?? vancomycin 750 mg in 0.9% NaCl IV 0.9 % 250 mL Follow-up Information Recommendation for Primary Care Physician follow up . Discharge Instructions INSTRUCTIONS FROM YOUR PROVIDER: Gay Canales is a 32 year old woman with a history of diabetes mellitus who transferred from an outside healthcare facility on April 26 for a second opinion regarding surgical management of a right diabetic foot ulcer with associated osteomyelitis. She was seen by vascular surgery and Infectious Disease at [facility] and it was recommended that she undergo right ruwoh-zvg-ijve amputation but she declined that intervention. Attempting a trial of management with IV antibiotics and planning for reassessment at the end of that treatment. - Duration of IV Abx (Vancomycin, ceftriaxone) for 6 weeks 04/26/2023 - Anticipated End of therapy 06/07/2023. - Check weekly (at minimum) CBC with diff, CMP, vancomycin trough. Please obtain ESR and CRP with last 3 weeks of antibiotic therapy. Please fax the above lab results to the [facility] Infectious Diseases clinic at [phone] (Attn: Roxanna Roth PA-C and Dr. Carlson). - Will schedule follow up appointment in [facility] Infectious Diseases clinic on 06/03/2023. [facility] clinic address: [address] [place] [address], [facility] [address] [place] [address] Clinic phone [phone] Clinic fax [phone] INSTRUCTIONS and FOLLOW-UP: Future Appointments Tuesday May 16, 2023 Lab: CBC WITH DIFFERENTIAL Tuesday May 16, 2023 Lab: COMPREHENSIVE METABOLIC PANEL Tuesday May 16, 2023 Lab: VANCOMYCIN LEVEL TROUGH Saturday June 03, 2023 8:30 AM (Arrive by 8:15 AM) Appointment with [facility] INF DIS OP ANTI THERAPY at [facility] - Infectious Disease ([phone]) [address] [place] [address], [facility] [id number] It has been a pleasure taking care of you. [facility] Department of Internal Medicine Division of Hospital Medicine You may reach us at (dial 0 for the white sugar pan tank operator). Signed: Joe Vargas MD 05/10/2023 Time spent on discharge: 45 minutes. Time was spent on preparation of discharge records, prescriptions, counseling patient, working withsocial work and nursing 45 minutes. documented in this encounter Discharge Instructions * Discharge Instructions* Joe Vargas MD - 05/09/2023 3:35 PM CDT INSTRUCTIONS FROM YOUR PROVIDER: Gay Canales is a 32 year old woman with a history of diabetes mellitus who transferred from an outside healthcare facility on April 26 for a second opinion regarding surgical management of a right diabetic foot ulcer with associated osteomyelitis. She was seen by vascular surgery and Infectious Disease at [facility] and it was recommended that she undergo right sosyk-dvs-math amputation but she declined that intervention. Attempting a trial of management with IV antibiotics and planning for reassessment at the end of that treatment. - Duration of IV Abx (Vancomycin, ceftriaxone) for 6 weeks 04/26/2023 - Anticipated End of therapy 06/07/2023. - Check weekly (at minimum) CBC with diff, CMP, vancomycin trough. Please obtain ESR and CRP with last 3 weeks of antibiotic therapy. Please fax the above lab results to the [facility] Infectious Diseases clinic at [phone] (Attn: Roxanna Roth PA-C and Dr. Carlson). - Will schedule follow up appointment in [facility] Infectious Diseases clinic on 06/03/2023. [facility] clinic address: [address] [place] [address], [facility] [place] [address] Clinic phone [phone] Clinic fax [phone] INSTRUCTIONS and FOLLOW-UP: Future Appointments Tuesday May 16, 2023 Lab: CBC WITH DIFFERENTIAL Tuesday May 16, 2023 Lab: COMPREHENSIVE METABOLIC PANEL Tuesday May 16, 2023 Lab: VANCOMYCIN LEVEL TROUGH Saturday June 03, 2023 8:30 AM (Arrive by 8:15 AM) Appointment with [facility] INF DIS OP ANTI THERAPY at [facility] - Infectious Disease ([phone]) [address] [place] [phone] It has been a pleasure taking care of you. [facility] Department of Internal Medicine Division of Hospital Medicine You may reach us at (dial 0 for the white sugar pan tank operator). documented in this encounter Medications at Time [...] FOR BLOOD GLUCOSE TESTING 100 Each 12/12/2022 acetaminophen (Tylenol) 500 MG tablet Take 1 (one) tablet by mouth every 6 hours Maximum allowable Acetaminophen amount = 4 Grams (4000 mg) / 24 hours. 12/12/2022 05/23/2023 amLODIPine (Norvasc) 10 MG tablet Take 1 (one) tablet by mouth once daily 12/12/2022 05/23/2023 carvedilol (Coreg) 12.5 MG tablet Take 1 (one) tablet by mouth 2 times daily with morning and evening meal 12/12/2022 08/24/2024 cefTRIAXone 2 g 2,000 mg in 0.9% NaCl IV 0.9 % 50 mL 2,000 (two thousand) mg by Intravenous route every 24 hours for 28 days 05/10/2023 05/23/2023 FeroSul 325 (65 Fe) MG tablet Take 1 (one) tablet by mouth daily with breakfast 08/08/2022 09/01/2024 gabapentin (Neurontin) 100 MG capsule Take 1 (one) capsule by mouth 3 times daily 12/27/2022 08/09/2024 insulin lispro (HumaLOG;ADMelog) 100 UNIT/ML pen Inject 0 (zero) Units to 6 (six) Units subcutaneously 3 times daily with meals 05/09/2023 08/09/2024 melatonin 3 MG tablet Take 1 (one) tablet by mouth nightly as needed for Insomnia 05/09/2023 09/01/2024 metroNIDAZOLE (Flagyl) 500 MG tablet Take 1 (one) tablet by mouth every 8 hours for 29 days 05/09/2023 05/23/2023 nystatin (Mycostatin) 124915 UNIT/GM powder Apply to affected area 3 times daily 12/12/2022 08/09/2024 potassium chloride ER (Klor-Con M) 20 MEQ tablet Take 1 (one) tablet by mouth daily with breakfast 12/12/2022 03/02/2024 vancomycin 750 mg in 0.9% NaCl IV 0.9 % 250 mL 750 (seven hundred fifty) mg by Intravenous route every 24 hours for 28 days 05/10/2023 05/23/2023 documented as of this encounter Progress Notes * Kerrie Harvey, JIMMIE - 05/09/2023 4:28 PM CDT Problem: Fall Risk Goal: Fall risk and fall related injury risk are minimized (interventions related to the fall risk can be found in the flowsheet documentation) 05/09/2023 1628 by Kerrie Harvey RN Outcome: Adequate for Discharge 05/09/2023 141 by Kerrie Harvey RN Outcome: Adequate for Discharge Problem: Nutrient: Increased nutrient needs (specify) Goal: Total intake will meet estimated nutrient needs 05/09/2023 1628 by Kerrie Harvey RN Outcome: Adequate for Discharge 05/09/2023 141 by Kerrie Harvey RN Outcome: Adequate for Discharge Problem: Pain/Discomfort Goal: Patient exhibits reduced pain/discomfort as evidenced by pain scores 05/09/20231627 by Kerrie Harvey RN Outcome: Adequate for Discharge 05/09/20231412 by Kerrie Harvey RN Outcome: Adequate for Discharge Goal: Patient uses pharmacological and non-pharmacological pain management strategies. 05/09/20231627 by Kerrie Harvey RN Outcome: Adequate for Discharge 05/09/20231412 by Kerrie Harvey RN Outcome: Adequate for Discharge Goal: Patient verbalizes acceptable level of pain relief and ability to engage in desired activity. 05/09/20231627 by Kerrie Harvey RN Outcome: Adequate for Discharge 05/09/20231412 by Kerrie Harvey RN Outcome: Adequate for Discharge * Kerrie Harvey RN - 05/09/2023 2:14 PM CDT 1405: Spoke Nurse Maribell at [facility]. Report given. No concerns voiced. ETA 4pm via [facility] 1620: Left via stretcher with [facility]. No s/s of distress noted. No distress noted before leaving floor. Pt stated she has all belongings. Problem: Fall Risk Goal: Fall risk and fall related injury risk are minimized (interventions related to the fall risk can be found in the flowsheet documentation) Outcome: Adequate for Discharge Problem: Nutrient: Increased nutrient needs (specify) Goal: Total intake will meet estimated nutrient needs Outcome: Adequate for Discharge Problem: Pain/Discomfort Goal: Patient exhibits reduced pain/discomfort as evidenced by pain scores Outcome: Adequate for Discharge Goal: Patient uses pharmacological and non-pharmacological pain management strategies. Outcome: Adequate for Discharge Goal: Patient verbalizes acceptable level of pain relief and ability to engage in desired activity. Outcome: Adequate for Discharge * Tammy Nolan RN - 05/09/2023 12:45 PM CDT Care Coordination Progress Note Anticipated level of care at discharge: Home Health Care, Shelter - Skilled Facility Discharge Plan: Left message with SPC to follow up on women halfway beds READMISSION RISK SCORE is 17 at 12:45 PM 05/09/2023. Anticipated Discharge Date: 05/12/23 Patient/Family provided with list of resources? Unknown Preferred Provider / High Quality Network List given?: Unknown Reason for provider choice: Pt. choice - Pt. choice Family Support (Name and Phone): Extended Emergency Contact Information Primary Emergency Contact: Silvia Resendiz Mobile Relation: Mother Signals Officer needed? No Secondary Emergency Contact: GAYE NUNEZ Mobile Relation: Sister Signals Officer needed? No Patient is alert & orientated or has capacity for decision making: Yes If No , Legal or Designated Decision Maker: N/A Transportation at Discharge: Medicaid Provider Equipment at Home: Equipment at Home: Wheelchair-Standard List DME patient requires but does not have: DME Provider: Medication affordability concerns: No Follow Up Appointment: Transportation to MD: Family Auth Number (if required): [place]: DME: Medications: Transportation: Name: Tammy Nolan RN Phone: [phone] * Radha Ospina MSW - 05/09/2023 12:37 PM CDT Facility Transfer Note Level of Care: Actual level of care at discharge: Shelter - Skilled Facility Facility Name: (include name of person confirming admission): Actual discharge provider: [facility] Made Aware of Special Needs (if applicable): RN Call Report to:[phone] Fax D/C Orders to:[phone] Transportation (company and number): [facility] [employer] [phone] ; Trip#: [id number] Certificate of Medical Necessity rationale: Diabetic ulcer of right heel, above knee amputation left, bed bound Date/time of transfer: 05/09/23 at 4pm Accepting MD and contact #: Dr Simmons Completed and Signed [id number] (if applicable): Family/Other Notified of Transfer (name/phone): patient and facility Authorization Skilled Care: Authorization for Transportation: Verified Qualifying Stay(Skilled Only): NOT APPLICABLE Comments: No further SW needs identified at this time. Name/Phone number: VERONIKA Mcpherson [phone] * Trinidad Holloway, PharmD - 05/09/2023 7:35 AM CDT ACTIVE CONSULTS TO PHARMACY/DISEASE STATE MONITORING Pharmacy Consult: Vancomycin ASSESSMENT/PLAN Indication: documented osteomyelitis of R calcaneus with goal level: AUC 400-600 ID consulted/following: Yes Assessment: ?? Day of treatment: 14 ?? End of treatment date: 06/07/2023 (tentative) ?? Current dosing regimen: 750 mg IV Q24 hr ??? Renal assessment: considered stable over the last ~week, but SCr is elevated from baseline. ??? MRSA positive: Yes ??? Peak level on 05/08/23 at 0841 was 26.7 mcg/ml and trough level on 05/09/23 at 0357 was 19.5 mcg/ml. Recent Labs Component Name 05/09/23 0357 05/08/23 0841 05/06/23 0413 05/05/23 0409 05/04/23 0636 05/02/23 0657 04/29/23 0338 04/28/23 0319 04/27/23 2019 04/27/23 0729 VANCORNDM - - 17.1 11.7 15.3 15.9 - - - - VANCTROUGH 19.5 - - - - - - 34.6* - - VANCOPEAK - 26.1 - - - - - - 46.6* 42.0* - = values in this interval not displayed. ?? Using steady state pharmacokinetic calculations, calculated AUC = 544 mg-hr/L and is therapeuticto goal Plan ??? Dosing: o Will continue current regimen. ??? Monitoring o Will order a vancomycin peak level after maintenance dose on 05/12/23 at 0900 and trough level prior to maintenance dose on 05/13/23 at 0400 and adjust regimen if indicated. o Continue to monitor patient???s renal function and cultures as needed. Trinidad Holloway, PharmD 05/09/2023 7:35 AM [facility] Vancomycin Guideline SUBJECTIVE/OBJECTIVE Gay Canales is a 32 year old female. The primary encounter diagnosis was Diabetic ulcer of left heel associated with type 2 diabetes mellitus, unspecified ulcer stage (CMS/HCC). Diagnoses of Chronic diastolic congestive heart failure (CMS/HCC), 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, unspecified ulcer stage (CMS/HCC), Left foot infection, and 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, with necrosis of bone (CMS/HCC) were also pertinent to this visit. Height: 5' 7 (170.2 cm) Wt 140 kg (308 lb 9.6 oz) Body mass index is 48.33 kg/m??. Recent Labs Component Name 05/09/23 0630 05/09/23 0357 05/08/23 0635 05/07/23 0616 05/06/23 0413 CREATININE - 1.83* 1.80* 1.70* 1.75* BUN - 17 16 16 15 WBC 7.9 - 8.2 7.5 8.5 IO last 3 completed shifts In: 300 (2.1 mL/kg) [P.O.:300] Out: - (0 mL/kg) Net: 300 Weight: 140 kg Dialysis Orders (72h ago, onward) None Vancomycin Administrations from JAN (last 72 hours) Date/Time Action Medication Dose Rate 05/09/23 0636 $ New Bag/Syringe vancomycin (Vancocin) 750 mg in 0.9% NaCl IV 250 mL IVPB 750 mg 333.33 mL/hr 05/08/23 0603 $ New Bag/Syringe vancomycin (Vancocin) 750 mg in 0.9% NaCl IV 250 mL IVPB 750 mg 333.33 mL/hr 05/07/23 0631 $ New Bag/Syringe vancomycin (Vancocin) 750 mg in 0.9% NaCl IV 250 mL IVPB 750 mg 333.33 mL/hr 05/06/23 0822 $ New Bag/Syringe vancomycin (Vancocin) 750 mg in 0.9% NaCl IV 250 mL IVPB 750 mg 333.33 mL/hr * Jeanna Reynolds RN - 05/09/2023 1:54 AM CDT Problem: Fall Risk Goal: Fall risk and fall related injury risk are minimized (interventions related to the fall risk can be found in the flowsheet documentation) Outcome: Progressing Problem: Nutrient: Increased nutrient needs (specify) Goal: Total intake will meet estimated nutrient needs Outcome: Progressing Problem: Pain/Discomfort Goal: Patient exhibits reduced pain/discomfort as evidenced by pain scores Outcome: Progressing Goal: Patient uses pharmacological and non-pharmacological pain management strategies. Outcome: Progressing Goal: Patient verbalizes acceptable level of pain relief and ability to engage in desired activity. Outcome: Progressing * Tammy Nolan RN - 05/08/2023 2:00 PM CDT Care Coordination Progress Note Anticipated level of care at discharge: Home Health Care, Shelter - Skilled Facility Discharge Plan: CM sent referral to Tab with [facility] to see if she is LTACH appropriate. Tab aware of referral READMISSION RISK SCORE is 17 at 2:01 PM 05/08/2023. Anticipated Discharge Date: 05/12/23 Patient/Family provided with list of resources? Unknown Preferred Provider / High Quality Network List given?: Unknown Reason for provider choice: Unknown Family Support (Name and Phone): Extended Emergency Contact Information Primary Emergency Contact: Silvia Resendiz Mobile Relation: Mother Signals Officer needed? No Secondary Emergency Contact: GAYE NUNEZ Mobile Relation: Sister Signals Officer needed? No Patient is alert & orientated or has capacity for decision making: Yes If No , Legal or Designated Decision Maker: N/A Transportation at Discharge: Medicaid Provider Equipment at Home: Equipment at Home: Wheelchair-Standard List DME patient requires but does not have: DME Provider: Medication affordability concerns: No Follow Up Appointment: Transportation to MD: Family Auth Number (if required): NH: DME: Medications: Transportation: Name: Tammy Nolan RN Phone: [phone] * Radha Ospina MSW - 05/08/2023 1:46 PM CDT SW spoke with pt re: discharge plan. Pt agreeable to more referrals being sent out in [place]. Pt requesting referrals to [facility], PADMINI informed those are LTACH and made RNCM aware. SW received call from [facility] requesting referral be sent again. They may be ableto accept pt. PADMIIN resent referral. Pending call back. VERONIKA Mcpherson Care Coordination Plaster Maker * Joe Vargas MD - 05/08/2023 10:48 AM CDT GENERAL INTERNAL MEDICINE Progress note 05/08/2023 10:48 AM Admit Date: 04/26/2023 Subjective: No acute events overnight. Patient denies pain or discomfort. Appetite is good. Medications: MAR reviewed Physical Examination: BP 146/79 Pulse 98 Temp 97.2 ??F (36.2 ??C) (Oral) Resp 14 Ht 1.702 m (5' 7 ) Wt (!) 140 kg (308 lb 9.6 oz) SpO2 95% GEN: NAD, resting comfrotably in bed. RESP: Clear to auscultation bilaterally. No wheezing or crackles noted. CARDIAC: Regular rate and rhythm. No murmurs, rubs, or gallops noted. GI: Abdomen soft, non tender, and non-distended. Bowel sounds noted. NEURO: Alert and interactive Labs: Relevant labs reviewed, discussed below Assessment: Gay Canales is a 32 year old woman with a history of diabetes mellitus who transferred from an outside healthcare facility on April 26 for a second opinion regarding surgical management of a right diabetic foot ulcer with associated osteomyelitis. She was seen by vascular surgery and Infectious Disease at [facility] and it was recommended that she undergo right skjon-ayf-voqp amputation but she declined that intervention. Attempting a trial of management with IV antibiotics and planning for reassessment at the end of that treatment. 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 Canales transferred from an outside healthcare facility for a second opinion regarding management of her foot ulcer and osteomyelitis. Per prior documentations her outside cultures grew group B Streptococcus. - Vascular surgery at [facility] recommended BKA which she declined. Multidisciplinary team discussion resulted in an agreement to do a trial of IV antibiotics for 6 weeks at which point the long-term plan would be re-evaluated. Her end of antibiotic treatment is currently set for June 07 - Continue treatment with IV ceftriaxone, metronidazole, and vancomycin. # Diarrhea - Suspect her diarrhea is secondary to initiation of antibiotics. - C diff tested earlier in this hospitalization and unremarkable. - continue prn loperamide # Acute kidney injury in setting of CKD stage 2 - Suspect acute kidney injury secondary to infection process with a component of vancomycin associated nephrotoxicity. - Avoid nephrotoxic agents. # Diabetes mellitus - Continue SSI # Hypertension - Continue amlodipine, carvedilol # Iron def anemia - Start ferrous sulfate every MWF. DVT PPx: Heparin t.i.d. Dispo: Pending SNF placement. Joe Vargas MD General Internal Medicine 05/08/2023 10:48 AM * Tammy Nolan RN - 05/08/2023 8:37 AM CDT Care Coordination Progress Note Anticipated level of care at discharge: Home Health Care, Shelter - Skilled Facility Discharge Plan: SW following for placement at this time READMISSION RISK SCORE is 17 at 8:37 AM 05/08/2023. Anticipated Discharge Date: 05/12/23 Patient/Family provided with list of resources? Unknown Preferred Provider / High Quality Network List given?: Unknown Reason for provider choice: Unknown Family Support (Name and Phone): Extended Emergency Contact Information Primary Emergency Contact: Silvia Resendiz Relation: Mother Signals Officer needed? No Secondary Emergency Contact: GAYE NUNEZ Mobile Relation: Sister Signals Officer needed? No Transportation at Discharge: Medicaid Provider Equipment at Home: Equipment at Home: Wheelchair-Standard List DME patient requires but does not have: DME Provider: Medication affordability concerns: No Follow Up Appointment: Transportation to MD: Family Auth Number (if required): [place]: DME: Medications: Transportation: Name: Tammy Nolan RN Phone: [phone] * Jeanna Reynolds RN - 05/08/2023 7:44 AM CDT Problem: Fall Risk Goal: Fall risk and fall related injury risk are minimized (interventions related to the fall risk can be found in the flowsheet documentation) 05/08/2023743 by Jeanna Reynolds RN Outcome: Progressing 05/07/20232024 by Jeanna Reynolds RN Outcome: Progressing Problem: Nutrient: Increased nutrient needs (specify) Goal: Total intake will meet estimated nutrient needs 05/08/2023743 by Jeanna Reynolds RN Outcome: Progressing 05/07/20232024 by Jeanna Reynolds RN Outcome: Progressing Problem: Pain/Discomfort Goal: Patient exhibits reduced pain/discomfort as evidenced by pain scores 05/08/2023743 by Jeanna Reynolds RN Outcome: Progressing 05/07/20232024 by Jeanna Reynolds RN Outcome: Progressing Goal: Patient uses pharmacological and non-pharmacological pain management strategies. 05/08/2023743 by Jeanna Reynolds RN Outcome: Progressing 05/07/20232024 by Jeanna Reynolds RN Outcome: Progressing Goal: Patient verbalizes acceptable level of pain relief and ability to engage in desired activity. 05/08/2023743 by Jeanna Reynolds RN Outcome: Progressing 05/07/20232024 by Jeanna Reynolds RN Outcome: Progressing * Jeanna Reynolds RN - 05/07/2023 8:25 PM CDT Problem: Fall Risk Goal: Fall risk and fall related injury risk are minimized (interventions related to the fall risk can be found in the flowsheet documentation) Outcome: Progressing Problem: Nutrient: Increased nutrient needs (specify) Goal: Total intake will meet estimated nutrient needs Outcome: Progressing Problem: Pain/Discomfort Goal: Patient exhibits reduced pain/discomfort as evidenced by pain scores Outcome: Progressing Goal: Patient uses pharmacological and non-pharmacological pain management strategies. Outcome: Progressing Goal: Patient verbalizes acceptable level of pain relief and ability to engage in desired activity. Outcome: Progressing * Joe Vargas MD - 05/07/2023 4:20 PM CDT GENERAL INTERNAL MEDICINE Progress note 05/07/2023 7:20 PM Admit Date: 04/26/2023 Subjective: No acute events overnight. Patient with no new complaints. Resting comfortably. Medications: MAR reviewed Physical Examination: BP 149/87 Pulse 76 Temp 98.1 ??F (36.7 ??C) (Oral) Resp 14 Ht 1.702 m (5' 7 ) Wt (!) 140 kg (308 lb 9.6 oz) SpO2 90% GEN: NAD, resting comfrotably in bed. RESP: Clear to auscultation bilaterally. No wheezing or crackles noted. CARDIAC: Regular rate and rhythm. No murmurs, rubs, or gallops noted. GI: Abdomen soft, non tender, and non-distended. Bowel sounds noted. NEURO: Alert and interactive Labs: Relevant labs reviewed, discussed below Radiology: Relevant imaging reviewed, discussed below Assessment: Gay Canales is a 32 year old woman with a history of diabetes mellitus who transferred from an outside healthcare facility on April 26 for a second opinion regarding surgical management of a right diabetic foot ulcer with associated osteomyelitis. She was seen by vascular surgery and Infectious Disease at [facility] and it was recommended that she undergo right krfam-vur-care amputation but she declined that intervention. We are attempting a trial of management with IV antibiotics and planning for reassessment at the end of that treatment. 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 Canales transferred from an outside healthcare facility for a second opinion regarding management of her foot ulcer and osteomyelitis. Per prior documentations her outside cultures grew group B Streptococcus. - Vascular surgery at [facility] recommended BKA which she declined. Multidisciplinary team discussion resulted in an agreement to do a trial of IV antibiotics for 6 weeks at which point the long-term plan would be re-evaluated. Her end of antibiotic treatment is currently set for June 07 - We will continue treatment with IV ceftriaxone, metronidazole, and vancomycin. # Diarrhea - Suspect her diarrhea is secondary to initiation of antibiotics. C diff tested earlier in this hospitalization and unremarkable. We will initiate treatment. Loperamide and follow for improvement # Acute kidney injury in setting of CKD stage 2 - Suspect acute kidney injury secondary to infection process with a component of vancomycin associated nephrotoxicity. - Will avoid nephrotoxic agents. # Diabetes mellitus - We will continue to provide a sliding scale insulin as needed # Hypertension - Continue amlodipine, carvedilol DVT PPx: Heparin t.i.d. Dispo: Pending SNF placement. Joe Vargas MD General Internal Medicine 05/07/2023 7:20 PM * Aide Sutton, RD/LDN - 05/07/2023 3:08 PM CDT Images from the original note were not included. Nutrition Re-Assessment Brief Synopsis: Patient is at Nutrition Risk; Specific criteria can be found in assessment below Nutrition Plan: Continue Diabetic Consistent Carb diet. +Glucerna (220 kcals, 10 g Pro, 26 g CHO) TID +Nathaniel BID (7gm arginine, 7gm glutamine, 2.5g collagen protein, 300mg VIT C, 9.5mg zinc) Recommendations to Physician: Encourage intake of meals and supplements Consider starting nutrition support if PO intake doesn't improve Discontinue imodium if diarrhea resolved Comments: Pt scheduled for reassessment. Pt busy at time of attempted visit. PO intake appears poor/fluctuates; reported intake is 0-75% of meals and 5-237mL ONS. LBM reported 7/3 - loose stool noted. Will continue to follow. Assessment: Med/Surg History and Clinical Diagnoses: 32 year old female with PMHx s/f T2DM (on home insulin) s/p L VICENTEA (12/05/[address] Rodgers) who presented initially for R heel ulcer Diet order accuracy Current diet order: Consistent Carb Standard Current supplement order: Glucerna TID, Nathaniel BID, Fiber additive QID Nutrition recommendation: agree with current nutrition order P.O.Intake for the past 48 hrs:% Meal Taken Av.8 % Min: 0 % Max: 50 % Supplement(s) Consumed- Last 48 hours Date/Time Dietary Supplement Name Liquid Supplement Consumed (mL) Non-Liquid Supplement Consumed (%) 05/05/23 1700 -- 240 ML -- 05/06/23 1200 -- 237 ML -- Food Allergies: No known food allergies GI Concerns: Vomiting Chewing/Swallowing: None Pain affecting intake: No Admission weight: Weight: (!) 140 kg (308 lb 9.6 oz) (04/26/23 0450) Recent Weights/Methods 12/03/2022 0128 12/04/2022 0345 12/05/2022 0430 12/11/2022 0407 12/12/2022 0335 12/19/2022 1027 01/09/2023 1004 04/26/2023 0450 Weight: 145 kg (319 lb 10.7 oz) 148.5 kg (327 lb 6.1 oz) 156.9 kg (346 lb) 140.6 kg (310 lb) 140.6 kg (310 lb) 128.4 kg (283 lb) 127 kg (280 lb) 140 kg (308 lb 9.6 oz) Weight Method (Utilize Scales): Bedscale Bedscale Bedscale Bedscale Bedscale -- -- Bedscale BMI: Body mass index is 48.33 kg/m??. BMI Range: Morbidly Obese Class 3 Wt Comments: monitoring Height: 170.2 cm (5' 7 ) IBW/lb (Calculated) Female: 135, Laboratory values reviewed. Recent Labs Component Name 05/07/23 0616 05/06/23 0413 05/05/23 0409 04/27/23 0729 04/26/23 0629 12/03/22 0242 12/02/22 195408/22/22 0317 08/21/22 0847 BUN 16 15 17 - 13 - 27* - 7 CREATININE 1.70* 1.75* 1.75* - 1.22* - 2.95* - 1.62* NA 144 145 143 - 142 - 139 - - POTASSIUM 4.1 3.8 3.8 - 3.6 - 3.9 - 2.9* CL 110* 112* 108* - 104 - 106 - - CO2 26 28 28 - 31* - 17* - 28 GLUCOSE 102 108 112 - 133* - 53* - 180* CALCIUM 8.3* 7.8* 7.9* - 7.7* - 7.6* - 8.2* PROT - - - - 5.4* - 6.0 - - ALB 1.4* 1.3* 1.4* - 1.3* - 0.8* - - TBILI - - - - 0.3 - 1.9* - - ALKPHOS - - - - 203* - 313* - 87 ALT - - - - 43 - 38 - 11 AST - - - - 78* - 47* - 5 ANIONGAP 12 9 11 - 11 - 20* - 10 BCR 9 9 10 - 11 - 9 - - OSMOLALITY 299 301* 298 - 296 - 291 - - AGRATIO - - - - 0.3* - 0.2* - - EGFR 41* 40* 40* - 61* - 21* - 44* - = values in this interval not displayed. Medications noted. Current Facility-Administered Medications Medication ??? 0.9% NaCl injection 3 mL And ??? 0.9% NaCl injection 1-10 mL ??? acetaminophen (Tylenol) tablet 1,000 mg ??? amLODIPine (Norvasc) tablet 10 mg ??? carvedilol (Coreg) tablet 25 mg ??? cefTRIAXone (Rocephin) 2,000 mg in 0.9% NaCl IV 50 mL IVPB ??? dextrose 10 % IV bolus Or ??? dextrose 10 % IV bolus ??? glucagon (Glucagen) injection 1 mg ??? glucose (Diabetic Use) (Dex4 Glucose) oral liquid ??? glucose (Diabetic Use) oral gel ??? glucose chew tablet 4 tablet ??? heparin injection 7,500 Units ??? insulin lispro (HumaLOG;ADMelog) 100 UNIT/ML pen 0-6 Units ??? lactobacillus (Lactinex) granules 1 packet ??? [START ON 05/08/2023] loperamide (Imodium) capsule 2 mg ??? loperamide (Imodium) capsule 4 mg ??? melatonin tablet 3 mg ??? metroNIDAZOLE (Flagyl) tablet 500 mg ??? nystatin (Mycostatin) powder ??? prochlorperazine (Compazine) injection 10 mg Or ??? ondansetron (disintegrating) (Zofran ODT) tablet 4 mg ??? oxyCODONE (immediate release) (Roxicodone) tablet 5 mg Or ??? oxyCODONE (immediate release) (Roxicodone) tablet 10 mg ??? vancomycin (Vancocin) 750 mg in 0.9% NaCl IV 250 mL IVPB ??? vancomycin (Vancocin) IV dose per pharmacy Skin/Wound: Exceptions per nursing (Upper lateral leg, Right foot, medial abdomen) Estimated Energy Needs: KCAL: 3897-5274 (30-35 kcal/kg) Protein (g): 74-92 (1.2-1.5 g/kg) Fluid (ml): 1 ml/kcal Needs based on: Kcal/kg- (Comment) (61.3 kg IBW) Recommended Access Route: PO Education needed: Wound Healing;Supplements Education Provided: Yes;Handout Provided Expected level of compliance: Good Nutrition Care Process (1) Nutrition Diagnostic Statement: Increased nutrient needs related to:: increased demands for wound healing as evidenced by:: estimated energy needs ..;estimated protein needs .. Nutrition Diagnostic Statement Progress: Nutrition problem continues Nutrition Intervention: Meals and snacks:;Medical Food Supplements: Monitoring: GI, PO intake, I&O's, weight, labs, medications. Evaluation: Nutrition Goal: Total intake will meet estimated nutrient needs Nutrition Goal Timeframe: Throughout stay Nutrition Goal Progress: Continue with current goal [id number] * Deion Ackerman RN - 05/06/2023 11:42 PM CDT Problem: Fall Risk Goal: Fall risk and fall related injury risk are minimized (interventions related to the fall risk can be found in the flowsheet documentation) Outcome: Progressing Problem: Pain/Discomfort Goal: Patient exhibits reduced pain/discomfort as evidenced by pain scores Outcome: Progressing Goal: Patient verbalizes acceptable level of pain relief and ability to engage in desired activity. Outcome: Progressing * Sunitha Ng RN - 05/06/2023 6:05 PM CDT Problem: Fall Risk Goal: Fall risk and fall related injury risk are minimized (interventions related to the fall risk can be found in the flowsheet documentation) Outcome: Progressing Problem: Nutrient: Increased nutrient needs (specify) Goal: Total intake will meet estimated nutrient needs Outcome: Progressing Problem: Pain/Discomfort Goal: Patient exhibits reduced pain/discomfort as evidenced by pain scores Outcome: Progressing Goal: Patient uses pharmacological and non-pharmacological pain management strategies. Outcome: Progressing Goal: Patient verbalizes acceptable level of pain relief and ability to engage in desired activity. Outcome: Progressing * Joe Vargas MD - 05/06/2023 3:31 PM CDT GENERAL INTERNAL MEDICINE Progress note 05/06/2023 3:31 PM Admit Date: 04/26/2023 Subjective: Patient with no new complaints today. Patient currently on oxygen supplementation 4 lpm via nasal canula, no reported desats. Patient reporting shortness of breath, intermittent. States that is the reason she came to the hospital. Medications: MAR reviewed Physical Examination: BP 134/79 Pulse 74 Temp 98.2 ??F (36.8 ??C) (Oral) Resp 17 Ht 1.702 m (5' 7 ) Wt (!) 140 kg (308 lb 9.6 oz) SpO2 99% GEN: NAD, resting comfrotably in bed. RESP: Clear to auscultation bilaterally. No wheezing or crackles noted. CARDIAC: Regular rate and rhythm. No murmurs, rubs, or gallops noted. GI: Abdomen soft, non tender, and non-distended. Bowel sounds noted. NEURO: Alert and interactive Labs: Relevant labs reviewed, discussed below Radiology: Relevant imaging reviewed, discussed below Assessment: Gay Canales is a 32 year old woman with a history of diabetes mellitus who transferred from an outside healthcare facility on April 26 for a second opinion regarding surgical management of a right diabetic foot ulcer with associated osteomyelitis. She was seen by vascular surgery and Infectious Disease at [facility] and it was recommended that she undergo right [id number] amputation but she declined that intervention. We are attempting a trial of management with IV antibiotics and planning for reassessment at the end of that treatment. 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 Canales transferred from an outside healthcare facility for a second opinion regarding management of her foot ulcer and osteomyelitis. Per prior documentations her outside cultures grew group B Streptococcus. - Vascular surgery at [facility] recommended BKA which she declined. Multidisciplinary team discussion resulted in an agreement to do a trial of IV antibiotics for 6 weeks at which point the long-term plan would be re-evaluated. Her end of antibiotic treatment is currently set for June 07 - We will continue treatment with IV ceftriaxone, metronidazole, and vancomycin. # Diarrhea - Suspect her diarrhea is secondary to initiation of antibiotics. C diff tested earlier in this hospitalization and unremarkable. We will initiate treatment. Loperamide and follow for improvement # Acute kidney injury in setting of CKD stage 2 - Suspect acute kidney injury secondary to infection process with a component of vancomycin associated nephrotoxicity. - Will avoid nephrotoxic agents. # Diabetes mellitus - We will continue to provide a sliding scale insulin as needed # Hypertension - Continue amlodipine, carvedilol DVT PPx: Heparin t.i.d. Joe Vargas MD General Internal Medicine 05/06/2023 3:31 PM * Trinidad Holloway, PharmD - 05/06/2023 7:43 AM CDT ACTIVE CONSULTS TO PHARMACY/DISEASE STATE MONITORING Pharmacy Consult: Vancomycin ASSESSMENT/PLAN Indication: documented osteomyelitis of R calcaneus with goal level: AUC 400-600 (or trough 15-20) ID consulted/following: Yes Assessment: ?? Day of treatment: 11 ?? End of treatment date: 06/07/2023 (tentative) ?? Current dosing regimen: intermittent dosing based on levels ??? Renal assessment: considered stable over the last ~5 days, but SCr is elevated from baseline. Last SCr was 1.75 mg/dL. ??? MRSA positive: Yes ??? Random level on 05/06/2023 at 0413 was 17.1 mcg/ml. Recent Labs Component Name 05/06/2341205/05/239 05/04/23 0636 05/02/23 0657 04/29/23 0338 04/28/23 0319 04/27/23201804/27/23 0729 VANCORNDM 17.1 11.7 15.3 15.9 - - - - VANCTROUGH - - - - - 34.6* - - VANCOPEAK - - - - - - 46.6* 42.0* - = values in this interval not displayed. Plan ??? Dosing: o Based on past dosing history and levels, will start 750 mg IV every 24 hr. This regimen calculates to provide estimated AUC of 562 mg-h/L and trough 18 mcg/mL. ??? Monitoring o Will order a vancomycin peak level after maintenance dose on 05/08/2023 at 0900 and trough level prior to maintenance dose on 05/09/23 at 0400 and adjust regimen if indicated. o Continue to monitor patient???s renal function and cultures as needed. Trinidad Holloway, PharmD 05/06/2023 7:44 AM [facility] Vancomycin Guideline SUBJECTIVE/OBJECTIVE Gay Canales is a 32 year old female. The primary encounter diagnosis was Diabetic ulcer of left heel associated with type 2 diabetes mellitus, unspecified ulcer stage (CMS/HCC). Diagnoses of Chronic diastolic congestive heart failure (CMS/HCC), 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, unspecified ulcer stage (CMS/HCC), Left foot infection, and 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, with necrosis of bone (CMS/HCC) were also pertinent to this visit. Height: 5' 7 (170.2 cm) Wt 140 kg (308 lb 9.6 oz) Body mass index is 48.33 kg/m??. Recent Labs Component Name 05/06/2341205/05/239 05/04/23 0636 05/03/23 0638 CREATININE 1.75* 1.75* 1.81* 1.78* BUN 15 17 16 17 WBC 8.5 10.1 11.2* 10.4 IO last 3 completed shifts In: 1085 (7.8 mL/kg) [P.O.:720; Enteral:365] Out: 1300 (9.3 mL/kg) [Urine:1300 (0.3 mL/kg/hr)] Net: -215 Weight: 140 kg Dialysis Orders (72h ago, onward) None Vancomycin Administrations from JAN (last 72 hours) Date/Time Action Medication Dose Rate 05/05/23 1159 $ New Bag/Syringe [patient had been refusing medication, ok to give per pharmacist at this time] vancomycin (Vancocin) 1,250 mg in 250 mL NaCl IVPB Premix 1,250 mg 200 mL/hr 05/05/23 0935 $ New Bag/Syringe vancomycin (Vancocin) 1,250 mg in 250 mL NaCl IVPB Premix 1,250 mg 200 mL/hr * Jeanna Reynolds RN - 05/05/2023 8:30 PM CDT Problem: Fall Risk Goal: Fall risk and fall related injury risk are minimized (interventions related to the fall risk can be found in the flowsheet documentation) Outcome: Progressing Problem: Nutrient: Increased nutrient needs (specify) Goal: Total intake will meet estimated nutrient needs Outcome: Progressing Problem: Pain/Discomfort Goal: Patient exhibits reduced pain/discomfort as evidenced by pain scores Outcome: Progressing Goal: Patient uses pharmacological and non-pharmacological pain management strategies. Outcome: Progressing Goal: Patient verbalizes acceptable level of pain relief and ability to engage in desired activity. Outcome: Progressing * Alejandra Mathews, RN - 05/05/2023 7:04 PM CDT Lehr Operator reports, The pt was c/o of having trouble catching her breath and her heart pouding .immersion metalcleaner assessed the pulse, 82 and the oxygen was 94 . This sports writer re-assessed and pt reportsshe is feeling fine. * Radha Ospina MSW - 05/05/2023 3:18 PM CDT SW assigned and continuing to follow for placement and disposition. PADMINI followed up with the following facilities: [facility] [phone] SW spoke with admissions who reported she has not seen referral. SWresent referral. [facility] [phone] SW told to call [phone] to speak with Sadia. PADMINI lvm for Sadia requesting call back re: referral. [facility] [phone] PADMINI lvm for Bennett in admissions [facility] [phone] SW spoke with Mary in admissions who reported they do not have any medicaid beds available. [address] [phone] They are declining patient. [facility] [phone] SW lvm for admissions. [facility] [phone] told to call admission coordinator Keila [phone]. PADMINI called Keila and lvm requesting call back. [facility] [phone] PADMINI was informed that Keila is the drug abuse program coordinator, SW already left her a vm for [facility]. [facility] [phone] and spoke with Lela in admissions who stated she believes they declined pt. She reports she will look back at the referral and call SW back. Catie villasenor [phone] SW lvm for admission. [facility] [phone] lvm for drug abuse program coordinator [facility] [phone] PADMINI spoke with admission who reports she does not recall receiving the referral. PADMINI resent. [facility] [phone] PADMINI spoke with Jeanna in admissions who reports she did not receive referral and the DON quit, she requested new referral be sent. PADMINI sent referral again. VERONIKA Mcpherson Care Coordination Plaster Maker * Davion Ahn - 05/05/2023 2:19 PM CDT Eyelet Operator visited patient to introduce pastoral care, patient shared that she is doing ok today but is feeling upset about prospect of being here until June. Eyelet Operator listened supportively and validated emotions. Patient not interested in further pastoral care at this time, and communications controller assured that pastoral care is always available. 7731/[id number] Chaplain Charmaine ASCOM: [id number] Guest Relations Executive: [phone] * Tammy Nolan RN - 05/05/2023 10:22 AM CDT Care Coordination Progress Note ?? Anticipated level of care at discharge: Home Health Care, Shelter - Skilled Facility Discharge Plan: Pt is unable to go home with IV ABX. Pt does not have the support to assist. SW following for placement ?? READMISSION RISK SCORE is 16 at 2:21 PM 05/01/2023. ?? Anticipated Discharge Date: 05/06/23 ?? Patient/Family provided with list of resources? Unknown Preferred Provider / High Quality Network List given?: Unknown Reason for provider choice: Unknown ?? Family Support (Name and Phone): Extended Emergency Contact Information Primary Emergency Contact: Silvia Resendiz Mobile Relation: Mother Signals Officer needed? No Secondary Emergency Contact: GAYE NUNEZ Mobile Relation: Sister Signals Officer needed? No ? Transportation at Discharge: Medicaid Provider ?? Equipment at Home: Equipment at Home: Wheelchair-Standard ?? List DME patient requires but does not have: ?? DME Provider: ?? Medication affordability concerns: No? Follow Up Appointment: ?? Transportation to MD: Family ?? Auth Number (if required): [place]: DME: Medications: Transportation: ?? Name: Tammy Nolan RN Phone: [phone] * Rafa Patel MD - 05/05/2023 9:47 AM CDT GENERAL INTERNAL MEDICINE Progress note 05/05/2023 9:47 AM Admit Date: 04/26/2023 Subjective: Ms. Canales reports frequent loose stools since staring her antibiotics. She does not report any associated abdominal pain, nausea, vomiting, or fevers. She does not endorse any other new concerns at this time; no chills, angina, or dyspnea. No acute events reported overnight per nursing staff Medications: MAR reviewed Physical Examination: BP 152/84 Pulse 83 Temp 98.1 ??F (36.7 ??C) (Oral) Resp 16 Ht 1.702 m (5' 7 ) Wt (!) 140 kg (308 lb 9.6 oz) SpO2 94% GEN: NAD, resting comfrotably in bed. RESP: Clear to auscultation bilaterally. No wheezing or crackles noted. CARDIAC: Regular rate and rhythm. No murmurs, rubs, or gallops noted. GI: Abdomen soft, non tender, and non-distended. Bowel sounds noted. NEURO: Alert and interactive Labs: Relevant labs reviewed, discussed below Radiology: Relevant imaging reviewed, discussed below Assessment: Gay Canales is a 32 year old woman with a history of diabetes mellitus who transferred from an outside healthcare facility on April 26 for a second opinion regarding surgical management of a right diabetic foot ulcer with associated osteomyelitis. She was seen by vascular surgery and Infectious Disease at [facility] and it was recommended that she undergo right iglyy-vtn-aobn amputation but she declined that intervention. We are attempting a trial of management with IV antibiotics and planning for reassessment at the end of that treatment. 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 Canales transferred from an outside healthcare facility for a second opinion regarding management of her foot ulcer and osteomyelitis. Per prior documentations her outside cultures grew group B Streptococcus. - Vascular surgery at [facility] recommended BKA which she declined. Multidisciplinary team discussion resulted in an agreement to do a trial of IV antibiotics for 6 weeks at which point the long-term plan would be re-evaluated. Her end of antibiotic treatment is currently set for June 07 - We will continue treatment with IV ceftriaxone, metronidazole, and vancomycin. # Diarrhea - Suspect her diarrhea is secondary to initiation of antibiotics. C diff tested earlier in this hospitalization and unremarkable. We will initiate treatment. Loperamide and follow for improvement # Acute kidney injury in setting of CKD stage 2 - Suspect acute kidney injury secondary to infection process with a component of vancomycin associated nephrotoxicity. Will follow and adjust dosing as needed # Diabetes mellitus - We will continue to provide a sliding scale insulin as needed # Hypertension - Continue amlodipine, carvedilol DVT PPx: Heparin t.i.d. Rafa Patel MD General Internal Medicine 05/05/2023 9:47 AM * Alejandra Mathews RN - 05/05/2023 8:00 AM CDT Problem: Fall Risk Goal: Fall risk and fall related injury risk are minimized (interventions related to the fall risk can be found in the flowsheet documentation) Outcome: Progressing Problem: Nutrient: Increased nutrient needs (specify) Goal: Total intake will meet estimated nutrient needs Outcome: Progressing Problem: Pain/Discomfort Goal: Patient exhibits reduced pain/discomfort as evidenced by pain scores Outcome: Progressing * Alejandra Mathews RN - 05/05/2023 7:47 AM CDT Rec'd report from going off Eli SAMUEL. Attempted to administer IV Vancomycin per scheduled order. Pt states, No and rolled over and went back to sleep. MD made aware from the previous nurse. * Eli Ward RN - 05/05/2023 5:[address] Daugherty of patient refusing IV vancomycin and all other medications throughout shift. Patient states the antibiotics are causing her pain and diarrhea and she wants to speak with the provider before taking any medications. This RN provided education regarding antibiotics and offered pain and anti- diarrheal medication, patient refused. * Xiang Younger, PharmD - 05/05/2023 5:17 AM CDT ACTIVE CONSULTS TO PHARMACY/DISEASE STATE MONITORING Pharmacy Consult: Vancomycin ASSESSMENT/PLAN Indication: documented Osteomyelitis of R calcaneus with Goal Level: 15-20 ID consulted/following: Yes Assessment: Day of treatment: 10 End of treatment date: 06/07/2023 Current dosing regimen: Intermittent dosing based on levels Renal assessment: considered unstable at this time as patient has acutely fluctuating renal function. MRSA positive: Yes Recent Labs Component Name 05/05/23 0409 05/04/23 0636 05/02/23 0657 05/01/23 0656 04/29/23 0338 04/28/23 0319 04/27/23201804/27/23 0729 VANCORNDM 11.7 15.3 15.9 21.3 - - - - VANCTROUGH - - - - - 34.6* - - VANCOPEAK - - - - - - 46.6* 42.0* - = values in this interval not displayed. Plan Dosing: Will continue serial dosing based on acute renal instability and/or CrCl < 30 mL/min. Will orderdose of 1250 mg to be given on 05/05 at 0600. Monitoring Will order a vancomycin random level 12 hours after dose administered and adjust regimen if indicated. Continue to monitor patient???s renal function and cultures as needed. Xiang Younger, [place] 05/05/2023 5:16 AM [facility] Vancomycin Guideline SUBJECTIVE/OBJECTIVE Gay Canales is a 32 year old female. The primary encounter diagnosis was Diabetic ulcer of left heel associated with type 2 diabetes mellitus, unspecified ulcer stage (CMS/HCC). Diagnoses of Chronic diastolic congestive heart failure (CMS/HCC), 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, unspecified ulcer stage (CMS/HCC), Left foot infection, and 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, with necrosis of bone (CMS/HCC) were also pertinent to this visit. Height: 5' 7 (170.2 cm) Wt 140 kg (308 lb 9.6 oz) Body mass index is 48.33 kg/m??. Recent Labs Component Name 05/05/23 0409 05/04/23 0636 05/03/23 0638 05/02/23 0657 CREATININE 1.75* 1.81* 1.78* 1.72* BUN 17 16 17 17 WBC 10.1 11.2* 10.4 10.4 @[id number]@ Dialysis Orders (72h ago, onward) None Vancomycin Administrations from [facility] (last 72 hours) Date/Time Action Medication Dose Rate 05/02/23 1520 $ New Bag/Syringe vancomycin (Vancocin) 1,000 mg in 0.9% NaCl IV 250 mL IVPB 1,000 mg 250 mL/hr * Rafa Patel MD - 05/04/2023 9:00 AM CDT GENERAL INTERNAL MEDICINE Progress note 05/04/2023 9:00 AM Admit Date: 04/26/2023 Subjective: Ms. Canales reports that she continues to feel well today. She does not endorse any new concerns at this time; no fevers, chills, angina, or dyspnea. No acute events reported overnight per nursing staff Medications: MAR reviewed Physical Examination: BP 153/84 Pulse 87 Temp 98.6 ??F (37 ??C) (Oral) Resp 14 Ht 1.702 m (5' 7 ) Wt (!) 140 kg(308 lb 9.6 oz) SpO2 96% GEN: NAD, resting in bed. RESP: Clear to auscultation bilaterally. No wheezing or crackles noted. CARDIAC: Regular rate and rhythm. No murmurs, rubs, or gallops noted. GI: Abdomen soft, non tender, and non-distended. Bowel sounds noted. NEURO: Alert and interactive Labs: Relevant labs reviewed, discussed below Radiology: Relevant imaging reviewed, discussed below Assessment: Gay Canales is a 32 year old woman with a history of diabetes mellitus who transferred from an outside healthcare facility on April 26 for 2nd opinion regarding surgical management of a right diabetic foot ulcer with associated osteomyelitis. She was seen by vascular surgery and Infectious Disease. She was recommended to undergo right [id number]-txk-[id number] amputation but declined that intervention. Weare attempting a trial of management with IV antibiotics and planning for reassessment at the end of that treatment. 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 Canales transferred from an outside healthcare facility for 2nd opinion regarding management of her foot ulcer and osteomyelitis. Per prior documentations her outside cultures grew group B Streptococcus. - Vascular surgery at [facility] recommended BKA which she declined. Multidisciplinary team discussion resulted in agreement to do a trial of IV antibiotics for 6 weeks at which point thelong-term plan would be re-evaluated. Her end of antibiotic treatment is currently set for June 07 - We will continue treatment with IV ceftriaxone, metronidazole, and vancomycin. # Acute kidney injury in setting of CKD stage 2 - Suspect acute kidney injury secondary to infection process with a component of vancomycin associated nephrotoxicity. Will follow and adjust dosing as needed # Diabetes mellitus - We will continue to provide a sliding scale insulin as needed # Hypertension - Continue amlodipine, carvedilol DVT PPx: Heparin t.i.d. Rafa Patel MD General Internal Medicine 05/04/2023 9:00 AM * Kerrie Harvey RN - 05/04/2023 7:54 AM CDT Problem: Fall Risk Goal: Fall risk and fall related injury risk are minimized (interventions related to the fall risk can be found in the flowsheet documentation) Outcome: Progressing Problem: Nutrient: Increased nutrient needs (specify) Goal: Total intake will meet estimated nutrient needs Outcome: Progressing Problem: Pain/Discomfort Goal: Patient exhibits reduced pain/discomfort as evidenced by pain scores Outcome: Progressing Goal: Patient uses pharmacological and non-pharmacological pain management strategies. Outcome: Progressing Goal: Patient verbalizes acceptable level of pain relief and ability to engage in desired activity. Outcome: Progressing * Miranda Louis PharmD - 05/04/2023 7:51 AM CDT ACTIVE CONSULTS TO PHARMACY/DISEASE STATE MONITORING Pharmacy Consult: Vancomycin ASSESSMENT/PLAN Indication: documented Osteomyelitis of R calcaneus with Goal Level: AUC 400-600 (transitioned to serial dosing for random levels < 20 mcg/mL until BOBBY resolves) ID consulted/following: Yes Assessment: Day of treatment: 9 End of treatment date: 06/07/2023 Current dosing regimen: 1000 mg, Intermittent dosing based on levels Renal assessment: considered unstable at this time as patient has Estimated Creatinine Clearance: 66.7 mL/min (A) (by C-G formula based on SCr of 1.81 mg/dL (H)). MRSA positive: Yes Random level on 05/04/2023 at 0636 was 15.3 mcg/ml. This level was 39 hours after last dose. Recent Labs Component Name 05/04/23 0636 05/02/23 0657 05/01/23 0656 04/30/23 0637 04/29/23 0338 04/28/23 0319 04/27/23201804/27/23 0729 VANCORNDM 15.3 15.9 21.3 18.4 - - - - VANCTROUGH - - - - - 34.6* - - VANCOPEAK - - - - - - 46.6* 42.0* - = values in this interval not displayed. Pharmacokinetic calculations unreliable at this time due to unstable renal function/drug clearance Plan Dosing: Will continue serial dosing based on acute renal instability and/or CrCl < 30 mL/min. Will orderdose of 1000 mg to be given on 05/04 at 0900. Monitoring Will order a vancomycin random level on 05/05 at 0400 and adjust regimen if indicated. Continue to monitor patient???s renal function and cultures as needed. Miranda Louis, PharmD 05/04/2023 7:42 AM [facility] Vancomycin Guideline SUBJECTIVE/OBJECTIVE Gay Canales is a 32 year old female. The primary encounter diagnosis was Diabetic ulcer of left heel associated with type 2 diabetes mellitus, unspecified ulcer stage (CMS/HCC). Diagnoses of Chronic diastolic congestive heart failure (CMS/HCC), 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, unspecified ulcer stage (CMS/HCC), Left foot infection, and 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, with necrosis of bone (CMS/HCC) were also pertinent to this visit. Height: 5' 7 (170.2 cm) Wt 140 kg (308 lb 9.6 oz) Body mass index is 48.33 kg/m??. Recent Labs Component Name 05/04/23 0636 05/03/23 0638 05/02/23 0657 05/01/23 0659 05/01/23 0656 CREATININE 1.81* 1.78* 1.72* 1.64* - BUN 16 17 17 17 - WBC 11.2* 10.4 10.4 - 9.0 @[id number]@ Dialysis Orders (72h ago, onward) None Vancomycin Administrations from [facility] (last 72 hours) Date/Time Action Medication Dose Rate 05/02/23 1520 $ New Bag/Syringe vancomycin (Vancocin) 1,000 mg in 0.9% NaCl IV 250 mL IVPB 1,000 mg 250 mL/hr * Eli Ward RN - 05/04/2023 6:51 AM CDT 0650: Notified Dr. Daugherty that patient refused all medications this shift. * Rafa Patel MD - 05/03/2023 9:34 AM CDT GENERAL INTERNAL MEDICINE Progress note 05/03/2023 9:35 AM Admit Date: 04/26/2023 Subjective: Ms. Canales reports that she generally feels well today. She does not endorse any new concerns at this time; no fevers, chills, angina, or dyspnea. No acute events reported overnight per nursing staff Medications: MAR reviewed Physical Examination: BP 136/77 Pulse 87 Temp 98.6 ??F (37 ??C) (Oral) Resp 18 Ht 1.702 m (5' 7 ) Wt (!) 140 kg(308 lb 9.6 oz) SpO2 92% GEN: NAD. RESP: Clear to auscultation bilaterally. No wheezing or crackles noted. CARDIAC: Regular rate and rhythm. No murmurs, rubs, or gallops noted. GI: Abdomen soft, non tender, and non-distended. Bowel sounds noted. NEURO: Alert and interactive Labs: Relevant labs reviewed, discussed below Radiology: Relevant imaging reviewed, discussed below Assessment: Gay Canales is a 32 year old woman with a history of diabetes mellitus transfer from outside healthcare facility on April 26 for 2nd opinion regarding surgical management of a right diabetic foot ulcer with associated osteomyelitis. He was seen by vascular surgery, Infectious Disease. She was juan mmended to undergo right jedyg-ooa-kkav amputation but declined that intervention. Attempting a trial of management IV antibiotics and reassessment at end of treatment. Plan: # right foot diabetic ulcer with associated osteomyelitis - Ms. Canales transferred from an outside healthcare facility for 2nd opinion regarding management of her foot ulcer and osteomyelitis. Per prior documentations her outside cultures grew group B Streptococcus. - vascular surgery at [facility] recommended BKA which she declined. Multidisciplinary team discussion resulted in agreement to do a trial of IV antibiotics for 6 weeks at which point long-term plan would be re-evaluated. Her end of antibiotic treatment is currently set for June 07 - We will continue treatment with IV ceftriaxone, metronidazole, and vancomycin. - Of note, we will continue to follow renal function, vancomycin trough, and adjust IV vancomycin treatment as needed. # Diabetes mellitus - We will continue to provide a sliding scale insulin as needed # Hypertension - Continue amlodipine, carvedilol # Acute kidney injury in setting of CKD stage 2 - Suspect acute kidney injury secondary to infection poss component of vancomycin associated nephrotoxicity. Will follow and adjust dosing as needed DVT PPx: Heparin t.i.d. Rafa Patel MD General Internal Medicine 05/03/2023 9:35 AM * Kerrie Harvey RN - 05/03/2023 8:05 AM CDT 1220: Informed Dr. Johnston that pt is refusing all medications. Problem: Fall Risk Goal: Fall risk and fall related injury risk are minimized (interventions related to the fall risk can be found in the flowsheet documentation) Outcome: Progressing Problem: Nutrient: Increased nutrient needs (specify) Goal: Total intake will meet estimated nutrient needs Outcome: Progressing Problem: Pain/Discomfort Goal: Patient exhibits reduced pain/discomfort as evidenced by pain scores Outcome: Progressing Goal: Patient uses pharmacological and non-pharmacological pain management strategies. Outcome: Progressing Goal: Patient verbalizes acceptable level of pain relief and ability to engage in desired activity. Outcome: Progressing * Jeanna Reynolds RN - 05/03/2023 6:30 AM CDT Problem: Fall Risk Goal: Fall risk and fall related injury risk are minimized (interventions related to the fall risk can be found in the flowsheet documentation) Outcome: Progressing Problem: Nutrient: Increased nutrient needs (specify) Goal: Total intake will meet estimated nutrient needs Outcome: Progressing Problem: Pain/Discomfort Goal: Patient exhibits reduced pain/discomfort as evidenced by pain scores Outcome: Progressing Goal: Patient uses pharmacological and non-pharmacological pain management strategies. Outcome: Progressing Goal: Patient verbalizes acceptable level of pain relief and ability to engage in desired activity. Outcome: Progressing * Radha Ospina MSW - 05/02/2023 2:11 PM CDT Friday Summary Note Discharge Level of Care:SNF Discharge Destination: TBD Phone Number: Fax Number: Insurance Auth: Anticipated Mode of Transportation: EMS Contacts (Name, relationship, phone #): patient Anticipated DC Date:05/05/23 Pending Needs:accepting facility Comments: Pt currently has no accepting SNF's. SW to follow up on referrals. VERONIKA Mcpherson Phone [phone] 05/02/2023 * Lavell Daly MD - 05/02/2023 12:59 PM CDT Hospitalist Progress Note HPI Gay Canales is a 32 year old female with past medical history significant for type 2 diabetes, systemic hypertension, heart failure with preserved ejection fraction, status post left AKA in December,. She presented on 04/26/2023 from an outside hospital for a 2nd opinion regarding the surgical management of the right diabetic foot ulcer with calcaneal osteomyelitis. Patient was evaluated by vascular surgery and Infectious Disease. Vascular surgery recommended right BKA but patient declined. Infectious Disease also recommended surgery but given patient's choice of treating with the IV antibiotic in an effort to treat her right heel osteomyelitis, they advised to continue IV vancomycin, IV ceftriaxone and metronidazole with an end of treatment date of 06/07/2023. Subjective: Resting in bed. No new complains. Objective: Blood pressure 150/87, pulse 85, temperature 98.4 ??F (36.9 ??C), temperature source Oral, resp. rate 18, height 1.702 m (5' 7 ), weight (!) 140 kg (308 lb 9.6 oz), last menstrual period 08/08/2022, SpO2 99 %, not currently . Gen: NAD HEENT: NCAT RESP: Clear to auscultation CV: Nl S1 and S2 GI: Soft and non tender. EXT: L AKA. Right heel ulcer NEURO: Alert, oriented and appropriately interactive MAR reviewed Relevant labs reviewed Assessment/Plan: # right diabetic foot ulcer with right calcaneum osteomyelitis: - Patient also has soft tissue abscess, cellulitis and myositis of the right posterior knee. - Wound cultures from outside hospital grew group B Streptococcus. Patient was evaluated by vascular surgery and Infectious Disease. - Vascular surgery recommended right BKA for source control but patient declined as she just had anAKA of the left leg in December,. Multi-disciplinary team discussion done with patient regarding the treatment of osteomyelitis and the risk of not achieving source control once antibiotics are discontinued after 6 weeks. She was explained that this will act as a source of infection resulting i n bacteremia, seeding of infection, worsening infection in the foot if the antibiotic therapy not successful. Long-term duration of antibiotic can also cause potential complications such as GI infection, antimicrobial resistance and renal and liver toxicity. Patient decided not to undergo surgical intervention and plans to continue the wound care of the right heel. Patient has a right arm PICC line and will arrange for IV vancomycin, IV ceftriaxone and metronidazole with an end of treatment date of 06/07/2023. Patient will need weekly CBC with diff, CMP and vancomycin trough. Please obtain ESR and CRP after 3 weeks of IV antibiotic roughly around 05/03/2023. Needs the nutritional augmentation with Nathaniel and Glucerna. Continue local wound care. # type 2 diabetes: Continue Accu-Cheks t.i.d. a.c. and at bedtime. Continue low- dose NovoLog/Humalog sliding scale. Blood sugar is well controlled. # systemic hypertension and heart failure with preserved ejection fraction. Continue amlodipine and increase coreg Hold lisinopril and diuretics given worsening creatinine. # BOBBY on CKD stage 2, POA: BOBBY from the infection, hypoalbuminemia and likely nephrotoxicity from Vanco; needs close follow up. Holding GABE and diuretics as above. 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 Diet: diabetic DVT prophylaxis: heparin Code status: limited resuscitation Disposition: SNF pending. Lavell Daly MD [facility] Medicine 05/02/2023 Feel free to text page me through [employer], login [email or web address] * Trinidad Holloway, PharmD - 05/02/2023 11:48 AM CDT ACTIVE CONSULTS TO PHARMACY/DISEASE STATE MONITORING Pharmacy Consult: Vancomycin ASSESSMENT/PLAN Indication: documented osteomyelitis of R calcaneus with goal level: AUC 400-600 (transitioned to serial dosing for random levels < 20 mcg/mL until BOBBY resolves) ID consulted/following: Yes Assessment: ?? Day of treatment: 7 ?? End of treatment date: 06/07/2023 (tentative) ?? Current dosing regimen: intermittent dosing based on levels ??? Renal assessment: considered unstable at this time as patient has an BOBBY (SCr 1.72 mg/dL). ??? MRSA positive: Yes ??? Random level on 05/02/23 at 0657 was 15.9 mcg/ml. Recent Labs Component Name 05/02/23 0657 05/01/23 0656 04/30/23 0637 04/29/23 0338 04/28/23 0319 04/27/23201804/27/23 0729 VANCORNDM 15.9 21.3 18.4 25.6 - - - VANCTROUGH - - - - 34.6* - - VANCOPEAK - - - - - 46.6* 42.0* ? ? The random level is > 15 mcg/mL, so vancomycin level is therapeutic currently. Appropriate to re-dose today to maintain adequate levels. Plan ??? Dosing: o Will order vancomycin 1000 mg IV once today. ??? Monitoring o Will order a vancomycin random level on 05/04/23 at 0400 (based on recent clearance rate) and adjust regimen if indicated. o Continue to monitor patient???s renal function and cultures as needed. Trinidad Holloway, PharmD 05/02/2023 11:48 AM [facility] Vancomycin Guideline SUBJECTIVE/OBJECTIVE Gay Canales is a 32 year old female. The primary encounter diagnosis was Diabetic ulcer of left heel associated with type 2 diabetes mellitus, unspecified ulcer stage ([facility]/HCC). Diagnoses of Chronic diastolic congestive heart failure (CMS/HCC), 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, unspecified ulcer stage (CMS/HCC), Left foot infection, and 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, with necrosis of bone (CMS/[facility]) were also pertinent to this visit. Height: 5' 7 (170.2 cm) Wt 140 kg (308 lb 9.6 oz) Body mass index is 48.33 kg/m??. Recent Labs Component Name 05/02/23 0657 05/01/23 0659 05/01/23 0656 04/30/23 0637 04/29/23 0338 CREATININE 1.72* 1.64* - 1.58* 1.45* BUN 17 17 - 14 13 WBC 10.4 - 9.0 10.2 11.4* Dialysis Orders (72h ago, onward) None Radiocontrast within 72 hours The 3 most recent administrations since 04/29/2023 are shown below each listed medication. Other Order Route Dose Action Date gadobutrol (Gadavist) injection Intravenous 10 mL $ Given - Contrast 04/29/2023 Vancomycin Administrations from [facility] (last 72 hours) Date/Time Action Medication Dose Rate 04/30/23 1243 $ New Bag/Syringe vancomycin (Vancocin) 1,000 mg in 0.9% NaCl IV 250 mL IVPB 1,000 mg 250 mL/hr * Sameer Navarro MD - 05/01/2023 4:31 PM CDT Hospitalist Progress Note Hospital course: Gay Canales is a 32 year old female with past medical history significant for type 2 diabetes, systemic hypertension, heart failure with preserved ejection fraction, status post left AKA in December,. She presented on 04/26/2023 from an outside hospital for a 2nd opinion regarding the surgical management of the right diabetic foot ulcer with calcaneal osteomyelitis. Patient was evaluated by vascular surgery and Infectious Disease. Vascular surgery recommended right BKA but patient declined. Infectious Disease also recommended surgery but given patient's choice of treating with the IV antibiotic in an effort to treat her right heel osteomyelitis, they advised to continue IV vancomycin, IV ceftriaxone and metronidazole with an end of treatment date of 06/07/2023. Patient is transferred to [facility] while awaiting facility placement. Subjective: Patient is resting comfortably without any new symptoms. Denies any fever, chills or rigors. Denies any chest pain or shortness of breath. Objective: Blood pressure 151/81, pulse 80, temperature 98 ??F (36.7 ??C), temperature source Oral, resp. rate18, height 1.702 m (5' 7 ), weight (!) 140 kg (308 lb 9.6 oz), last menstrual period 08/08/2022, SpO2 100 %, not currently . Gen: Lying supine in NAD HEENT: NCAT, EOMI, MMM RESP: Clear to auscultation CV: Nl S1 and S2 No gallops. GI: Soft and non tender. +BS, no HSM EXT: Left AKA. Significant edema noted in the left thigh and at the left AKA stump. Right heel ulcer with foul-smelling purulent drainage noted. Unable to lift leg off bed because of swelling and deconditioning. Neuro: Alert awake oriented x4. Generalized weakness noted MAR reviewed Renal function panel showed sodium of 145, potassium 4.0, chloride 111, CO2 29, creatinine increased to 1.64, BUN at 17 and glucose at 1:08 a.m. albumin 1.4, corrected calcium normal magnesium and phosphorus normal. CBC showed white count of 9000, hemoglobin 7.8 and platelet count six hundred eighty-two thousand. Hospital Problem List: CHF (congestive heart failure) (CMS/HCC) (POA: Yes) S/P AKA (above knee amputation) unilateral, left (CMS/HCC) (POA: Yes) 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 (CMS/HCC) (POA: Yes) Anemia (POA: Yes) Assessment/Plan: 32-year-old woman with past medical history of diabetes type 2, systemic hypertension, heart failure with preserved ejection fraction, status post left AKA in December, now being transferred on April 26 for right diabetic foot ulcer and for surgical management 1) right diabetic foot ulcer with right calcaneum osteomyelitis: Patient also has soft tissue abscess, cellulitis and myositis of the right posterior knee. Wound cultures from outside hospital grew group B Streptococcus. Patient was evaluated by vascular surgery and Infectious Disease. Vascular surgery recommended right BKA for source control but patient declined as she just had an AKA of the left leg in December,. Multi-disciplinary team discussion done with patient regarding the treatment of osteomyelitis and the risk of not achieving source control once antibiotics are discontinued after 6 weeks. She was explained that this will act as a source of infection resulting in bacteremia, seeding of infection, worsening infection in the foot if the antibiotic therapy not successful. Long-term duration of antibiotic can also cause potential complications such as GI infection, antimicrobial resistance and renal and liver toxicity. Patient decided not to undergo surgical intervention and plans to continue the wound care of the right heel. Patient has a right arm PICC line and will arrange for IV vancomycin, IV ceftriaxone and metronidazole with an end of treatment date of 06/07/2023. Patient will need weekly CBC with diff, CMP and vancomycin trough. Please obtain ESR and CRP after3 weeks of IV antibiotic roughly around 05/03/2023. Needs the nutritional augmentation with Nathaniel and Glucerna. Continue local wound care. 2) anemia and patient was treated for GI bleed in the outside hospital. Hemoglobin is stable. Patient was treated with the IV iron in outside hospital 3) type 2 diabetes: Continue Accu-Cheks t.i.d. a.c. and at bedtime. Continue low-dose NovoLog/Humalog sliding scale. Blood sugar is well controlled. 4) systemic hypertension and heart failure with preserved ejection fraction. Blood pressure controlled with amlodipine 10 mg daily and carvedilol 12.5 mg b.i.d.. Continue losartan 25 mg daily and Lasix 40 mg p.o. daily. 5) BOBBY on CKD stage 2, POA: BOBBY from the infection, hypoalbuminemia and likely nephrotoxicity from Vanco; needs close follow up. 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 LDA: Right arm PICC line Diet: Diabetic diet, Nathaniel and Glucerna Antibiotic end date: 06/07/2023 Consults: Infectious disease and vascular surgery DVT prophylaxis: Heparin subQ. 7500 unit every 8 hours Code status: Limited resuscitation prior and after arrest Disposition: To [facility] facility for IV antibiotic Care plan discussed with the multidisciplinary team and RN. Sameer Navarro MD [facility] 05/01/2023 READMISSION RISK SCORE is 16 at 4:32 PM 05/01/2023. I spent more than 50% of the time for counseling and coordination of care. * Radha Ospina MSW - 05/01/2023 3:45 PM CDT SW newly assigned and following for placement and disposition. SW acknowledge verbal consult for SN placement. SW met with pt at bedside who is agreeable to facilities in her area. Pt has no preference. SW sentreferrals and will follow up with pt regarding choice once facilities have accepted. SW continuing to follow for placement and disposition. VERONIKA Mcpherson Care Coordination Plaster Maker * Tammy Nolan RN - 05/01/2023 2:21 PM CDT Care Coordination Progress Note Anticipated level of care at discharge: Home Health Care, Shelter - Skilled Facility Discharge Plan: Pt is unable to go home with IV ABX. Pt does not have the support to assist. SW is now following for placement READMISSION RISK SCORE is 16 at 2:21 PM 05/01/2023. Anticipated Discharge Date: 05/06/23 Patient/Family provided with list of resources? Unknown Preferred Provider / High Quality Network List given?: Unknown Reason for provider choice: Unknown Family Support (Name and Phone): Extended Emergency Contact Information Primary Emergency Contact: Silvia Resendiz Mobile Relation: Mother Signals Officer needed? No Secondary Emergency Contact: GAYE NUNEZ Mobile Relation: Sister Signals Officer needed? No Transportation at Discharge: Medicaid Provider Equipment at Home: Equipment at Home: Wheelchair-Standard List DME patient requires but does not have: DME Provider: Medication affordability concerns: No Follow Up Appointment: Transportation to MD: Family Auth Number (if required): NH: DME: Medications: Transportation: Name: Tammy Nolan RN Phone: [phone] * Trinidad Holloway, PharmD - 05/01/2023 8:25 AM CDT ACTIVE CONSULTS TO PHARMACY/DISEASE STATE MONITORING Pharmacy Consult: Vancomycin ASSESSMENT/PLAN Indication: documented osteomyelitis of R calcaneus with goal level: AUC 400-600 (transitioned to serial dosing for random levels < 20 mcg/mL until BOBBY resolves) ID consulted/following: Yes Assessment: ?? Day of treatment: 6 ?? End of treatment date: 06/07/2023 ?? Current dosing regimen: intermittent dosing based on levels ??? Renal assessment: considered unstable at this time as patient has an BOBBY (SCr of 1.64 mg/dL). ??? MRSA positive: Yes ??? Random level on 05/01/23 at 0656 was 21.3 mcg/ml. Recent Labs Component Name 05/01/23 0656 04/30/23 0637 04/29/23 0338 04/28/23 0319 04/27/23 2019 04/27/23 0729 12/08/22 1256 VANCORNDM 21.3 18.4 25.6 - - - 16.8 VANCTROUGH - - - 34.6* - - - VANCOPEAK - - - - 46.6* 42.0* - ? ? The random level is > 20 mcg/mL, so vancomycin level is therapeutic currently. Hesistant to re-dose later today (when level is expected to be < 20 mcg/mL) due to worsening BOBBY. Expect that level will remain therapeutic (> 15 mcg/mL) until tomorrow. Plan ??? Dosing: o No vancomycin dose today. ??? Monitoring o Will order a vancomycin random level on 05/02/23 at 0400 and re-order vancomycin if indicated. o Continue to monitor patient???s renal function and cultures as needed. Trinidad Holloway, PharmD 05/01/2023 8:25 AM [facility] Vancomycin Guideline SUBJECTIVE/OBJECTIVE Gay Canales is a 32 year old female. The primary encounter diagnosis was Diabetic ulcer of left heel associated with type 2 diabetes mellitus, unspecified ulcer stage (CMS/HCC). Diagnoses of Chronic diastolic congestive heart failure (CMS/HCC), 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, unspecified ulcer stage (CMS/HCC), Left foot infection, and 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, with necrosis of bone (CMS/HCC) were also pertinent to this visit. Height: 5' 7 (170.2 cm) Wt 140 kg (308 lb 9.6 oz) Body mass index is 48.33 kg/m??. Recent Labs Component Name 05/01/23 0659 05/01/23 0656 04/30/23 0637 04/29/23 0338 04/28/23 0319 CREATININE 1.64* - 1.58* 1.45* 1.39* BUN 17 - 14 13 13 WBC - 9.0 10.2 11.4* 12.3* IO last 3 completed shifts In: 240 (1.7 mL/kg) [P.O.:240] Out: - (0 mL/kg) Net: 240 Weight: 140 kg Dialysis Orders (72h ago, onward) None Radiocontrast within 72 hours The 3 most recent administrations since 04/28/2023 are shown below each listed medication. Other Order Route Dose Action Date gadobutrol (Gadavist) injection Intravenous 10 mL $ Given - Contrast 04/29/2023 gadobutrol (Gadavist) injection Intravenous 10 mL $ Given - Contrast 04/28/2023 Vancomycin Administrations from [facility] (last 72 hours) Date/Time Action Medication Dose Rate 04/30/23 1243 $ New Bag/Syringe vancomycin (Vancocin) 1,000 mg in 0.9% NaCl IV 250 mL IVPB 1,000 mg 250 mL/hr * Sunitha Ng RN - 05/01/2023 7:58 AM CDT Problem: Fall Risk Goal: Fall risk and fall related injury risk are minimized (interventions related to the fall risk can be found in the flowsheet documentation) 05/01/2023 0758 by Sunitha Ng RN Outcome: Progressing 04/30/20231922 by Sunitha Ng RN Outcome: Progressing Problem: Nutrient: Increased nutrient needs (specify) Goal: Total intake will meet estimated nutrient needs 05/01/2023 0758 by Sunitha Ng RN Outcome: Progressing 04/30/20231922 by Sunitha Ng RN Outcome: Progressing Problem: Pain/Discomfort Goal: Patient exhibits reduced pain/discomfort as evidenced by pain scores 05/01/2023 0758 by Sunitha Ng RN Outcome: Progressing 04/30/20231922 by Sunitha Ng RN Outcome: Progressing Goal: Patient uses pharmacological and non-pharmacological pain management strategies. 05/01/2023 075 by Sunitha Ng RN Outcome: Progressing 04/30/20231922 by Sunitha Ng RN Outcome: Progressing Goal: Patient verbalizes acceptable level of pain relief and ability to engage in desired activity. 05/01/2023 0758 by Sunitha Ng RN Outcome: Progressing 04/30/20231922 by Sunitha Ng RN Outcome: Progressing * Sunitha Ng RN - 04/30/2023 7:23 PM CDT Problem: Fall Risk Goal: Fall risk and fall related injury risk are minimized (interventions related to the fall risk can be found in the flowsheet documentation) Outcome: Progressing Problem: Nutrient: Increased nutrient needs (specify) Goal: Total intake will meet estimated nutrient needs Outcome: Progressing Problem: Pain/Discomfort Goal: Patient exhibits reduced pain/discomfort as evidenced by pain scores Outcome: Progressing Goal: Patient uses pharmacological and non-pharmacological pain management strategies. Outcome: Progressing Goal: Patient verbalizes acceptable level of pain relief and ability to engage in desired activity. Outcome: Progressing * Ambar Lauren RN - 04/30/2023 2:08 PM CDT IV benadryl and PO tylenol given, vancomycin restarted. Instructed pt to notify staff if itching intensifies. * Ambar Lauren RN - 04/30/2023 1:30 PM CDT Pt c/o itching around buttocks, vagina and face after starting vancomycin. Pt also states she is not sure if it is from her having a BM. Vanc paused for now, attempting to get in touch with for next steps. * Tammy Nolan RN - 04/30/2023 9:46 AM CDT Care Coordination Progress Note Anticipated level of care at discharge: Home Health Care, Shelter - Skilled Facility Pt new to my caseload [place] transfer Discharge Plan: potential of patient going home on home antibiotics. [facility] ([facility]) contacted to review patient for acceptance for home abx delivery. READMISSION RISK SCORE is 17 at 9:46 AM 04/30/2023. Anticipated Discharge Date: 05/05/23 Patient/Family provided with list of resources? Unknown Preferred Provider / High Quality Network List given?: Unknown Reason for provider choice: Unknown Family Support (Name and Phone): Extended Emergency Contact Information Primary Emergency Contact: Silvia Resendiz Mobile Relation: Mother Signals Officer needed? No Secondary Emergency Contact: GAYE NUNEZ Mobile Relation: Sister Signals Officer needed? No Patient is alert & orientated or has capacity for decision making: Yes If No , Legal or Designated Decision Maker: N/A Transportation at Discharge: Medicaid Provider Equipment at Home: Equipment at Home: Wheelchair-Standard List DME patient requires but does not have: DME Provider: Medication affordability concerns: No Follow Up Appointment: Transportation to MD: Family Auth Number (if required): NH: DME: Medications: Transportation: Name: Tammy Nolan RN Phone: [phone] * Roxanna Roth PA-C - 04/30/2023 9:39 AM CDT [facility] Infectious Diseases Progress Note Date of Admission: 04/26/2023 4:41 AM Length of Stay: Day 4 Room: [facility] Attending: Selam Person MD Subjective Brief HPI (obtained from patient history and chart review): Gay Canales is a 32 year old female with a past medical history significant foressential hypertension, diabetes mellitus, obesity, depression, PTSD, past left leg necrotizing infection s/p left AKA ?? Patient presented to [facility] on 04/26/2023 as a transfer from OSH for surgical evaluation in the setting of right foot osteomyelitis. Patient initially presented to OSH on 04/15/2023 with a chief complaint of dyspnea and hypoxia on home monitor. She reported cough, no sputum production. She denied fever, chills, diaphoresis. As far as wound, she had been going weekly to wound care clinic and was told that wound was getting better, she did not notice pain, swelling, erythema, discharge or malodor from right foot. She reports that she felt like the right heel wound started to get significantly worsewhen she started to use devices to get fluid out of the leg. At OSH she was worked up for hypoxiaand it was thought to be due to volume overload in the setting of heart failure. She was also notedright foot wound concerning for infection. Right foot x-ray showed soft tissue gas and findings concerning for acute osteomyelitis. Right foot wound cultures growing GBS. ID was consulted for right diabetic foot infection with calcaneal osteomyelitis. She was started on daptomycin, ceftriaxone, metronidazole. Vascular surgery consulted there and recommended amputation but patient refused and transferred to [facility] for [facility] opinion. Labs upon transfer to [facility] remarkable for leukocytosis. She was co ntinued on IV antibiotics. Vascular surgery consulted. ID consulted. ?? Of note, she has a history of left necrotizing fasciitis s/p left AKA. She had been following regularly with wound care clinic. As per chart review, right leg wounds had been going on for at least 4-5 months. She followed up with wound care nurse and performed office debridement on 03/03/2023, samples sent for culture and grew GBS and MRSA. She was then prescribed doxycyline and topical gentamicin and ketoconazole. She followed up with wound care clinic again on 03/17/2023 and was added Augmentin.Seen again on 03/24/2023 and was prescribed topical mupirocin. Interval History: 04/30/2023: Since last seen by ID, patient continues to be afebrile and vital signs have been stable. She feels well and denies any shortness of breath, pleuritic chest pain, nausea, vomiting, fevers,chills. Has had some constipation, no diarrhea. She is currently on IV vancomycin, ceftriaxone, PO f lagyl. Pertinent Review of Systems: +Positives in bold General: changes in PO intake, Fever/Chills HEENT: Hearing loss or changes Respiratory: dyspnea, wheezing, cough, sputum production, hemoptysis Cardiac: Chest pain or GUZMAN. Gastrointestinal: abdominal pain, nausea, vomiting, diarrhea, +constipation, melena or hematochezia Genitourinary: dysuria, hematuria, hesitancy, frequency, hematuria Musculoskeletal: muscle weakness, joint pain/stiffness, limited range of motion, myalgias +Left AKAwithout any problems. Skin: rashes, pruritis Neuro: Headaches or visual changes Antimicrobial History Current Antibiotics IV Vancomycin (04/26-present) IV ceftriaxone (04/27-present) PO flagyl (04/26-present) Prior Antibiotics At [facility] Daptomycin - caused elevated CK Inpatient Medications ??? 0.9% NaCl 3 mL Intracatheter q8h ??? acetaminophen 1,000 mg Oral TID ??? amLODIPine 10 mg Oral QDAY ??? carvedilol 12.5 mg Oral BID WC ??? cefTRIAXone 2 g Intravenous q24h ??? furosemide 40 mg Oral QDAY ??? gadobutrol Intravenous Contrast - Once ??? heparin 7,500 Units Subcutaneous q8h ??? insulin aspart 0-6 Units Subcutaneous q4h ??? lactobacillus 1 packet Oral TID ??? losartan 25 mg Oral QDAY ??? metroNIDAZOLE 500 mg Oral q8h ??? nystatin Topical TID ??? vancomycin 1,000 mg Intravenous Once ??? vancomycin (VANCOCIN) IV dose per pharmacy Does not apply DIRECTED Objective Vitals BP 144/84 Pulse 81 Temp 97.7 ??F (36.5 ??C) (Axillary) Resp 14 Ht 1.702 m (5' 7 ) Wt (!) 140 kg (308 lb 9.6 oz) SpO2 95% Temp (24hrs), Av.3 ??F (36.8 ??C), Min:97.7 ??F (36.5 ??C), Max:98.8 ??F (37.1 ??C) Physical Exam PHYSICAL EXAM General: Alert, no distress, not toxic appearing. Laying comfortably in bed. Head: Normocephalic, atraumatic Eyes:normal conjunctiva, anicteric sclerae Nose: No deformity Mouth and Throat: No thrush Lungs: Clear to auscultation bilaterally (anteriorly) Heart: RRR, S1, S2 normal, no murmur Abdomen: Soft, non-distended, non-tender Extremities: +Left AKA without signs of infection, no tenderness or erythema. Right heel dressed inbandages. Media images show heel ulcer with eschar. +Right leg edema / lymphedema, 1 + pitting. Skin: No rashes. Neurologic: Alert and oriented x 3, moving all extremities Psychiatry: Appropriate mood/affect Lines: Right upper extremity PICC without signs of infection. Lab Review CBC: Recent Labs Component Name 04/30/2337 04/29/238 04/28/23318 WBC 10.2 11.4* 12.3* RBC 3.03* 2.89* 2.91* HGB 8.1* 7.4* 7.4* HCT 26.8* 25.1* 24.6* MCV 88.4 86.9 84.5 BMP: Recent Labs Component Name 04/30/23 0637 04/29/23 0338 04/28/2331804/27/23 0729 04/26/23 0629 12/03/22 0242 12/02/221954 NA 142 142 143 - 142 - 139 CL 108* 109* 107 - 104 - 106 CO2 31* 31* 31* - 31* - 17* BUN 14 13 13 - 13 - 27* CREATININE 1.58* 1.45* 1.39* - 1.22* - 2.95* ALB 1.5* 1.3* 1.2* - 1.3* - 0.8* PROT - - - - 5.4* - 6.0 - = values in this interval not displayed. estimated creatinine clearance is 76.4 mL/min (A) (by C-G formula based on SCr of 1.58 mg/dL (H)). LFTs: Recent Labs Component Name 04/26/23 0629 12/02/22 1955 08/25/22 0315 08/24/22 1404 08/24/22 0725 08/22/22 0317 08/21/22 0847 ALKPHOS 203* 313* - - - - 87 ALT 43 38 - - - - 11 AST 78* 47* - - - - 5 ALBUMIN - - 2.0* 2.1* 1.7* - 2.2* - = values in this interval not displayed. Coagulation: Recent Labs Component Name 04/26/23 0629 PT 16.3* INR 1.3 PTT 29.8 Microbiology, Imaging and other diagnostic tests MICROBIOLOGY: Blood culture: Collected 04/27/2023 (2/): NGTD Right foot culture (OSH): 04/15/2023: Strep Agalaciae Other Serologies: Collected 04/27/2023: - Viral respiratory panel negative - HIV non-reactive - Hep C non-reactive - Mycoplasma PCR - not detected - Bordetella PCR - not detected HISTOPATHOLOGY: None at this admission IMAGING & PROCEDURES: I have independently reviewed all pertinent imaging data. Reports available in EMR. 04/28/2023: MRI right foot/ankle w/wo contrast IMPRESSION: 1.Bone marrow signal abnormality [...] foot with tenosynovitis of the peroneus brevis. 04/29/2023: MRI right Tib/fib w/wo contrast IMPRESSION: 1.No evidence of osteomyelitis in the tibia and fibula. 2.Cellulitis and myositis of the right leg the level of the knee predominantly involving the posterior compartment muscles. 3.Partially seen osteomyelitis of the calcaneus and soft tissue abscess at the medial aspect of the ankle are better visualized on the prior MRI ankle dated 04/28/2023. Assessment and Recommendations #Leukocytosis - WBC was 15.5 at admission (04/26). It has started to trend down. - Likely secondary to osteomyelitis of the calcaneous and cellulitis of the right lower leg. #Osteomyelitis right calcaneous with associated soft tissue abscess #Cellultis / myositis right posterior knee. - Wound cultures from OSH grew GBS. - Patient is currently on vancomcyin, ceftriaxone, and flagyl based on wound cultures. - Vascular surgery is recommend amputation for source control however at this time the patient declines as she just recently had AKA of the left leg (12/2022). - Had a discussion with the patient regarding treatment of osteomyelitis and the risk of not achieving source control once antibiotics are discontinued after 6 weeks (standard of care for osteomyelitis) to include bacteremia / seeding of infection, worsening infection in the foot, antibiotic therapy not successful. Long duration of antibiotic use does come with potential risk to include GI infections, antimicrobial resistance, renal / liver toxicity. - At this time patient does not want to undergo surgical intervention and plans to continue with wound care of the right heel. If patient should decide to undergo surgical intervention in the form ofI&D then should obtain all cultures including standard bacterial, anaerobic, AFB smear + culture, fungal smear + culture. If patient should decide to undergo amputation of the right leg, please send bone for pathology to identify clean margins. #History of left necrotizing fasciitis, s/p AKA #DM2, well controlled -Last A1C 6.7 (04/27/2023) - Continue with good glycemic control. - Uncontrolled diabetes can increase infectious complications and impede wound healing. Renal Function: estimated creatinine clearance is 76.4 mL/min (A) (by C-G formula based on SCr of 1.58 mg/dL (H)). Allergies: No Known Allergies Plan/Recommendations - Continue with IV vancomcyin pharmacy dosed (goal trough 15-20), IV ceftriaxone, PO flagyl. - Patient will need 6 weeks of IV antibiotics unless there is surgical intervention, then duration may be modified. - Continue to discuss with patient about source control (I&D / amputation). - If patient should undergo I&D then please send for all cultures including standard bacterial,anaerobic, AFB smear + culture, fungal smear + culture. - If patient should undergo amputation then please send bone to pathology to evaluate bone margins for osteomyelitis. - Duration of IV Abx (Vancomycin, ceftriaxone) for 6 weeks 04/26/2023 - EOT 06/07/2023. - Check weekly (at minimum) CBC with diff, CMP, vancomycin trough. Please obtain ESR and CRP with last 3 weeks of antibiotic therapy. Please fax the above lab results to the [facility] Infectious Diseases clinic at [phone] (Attn: Roxanna Roth PA-C and Dr. Carlson). - Will schedule follow up appointment in [facility] Infectious Diseases clinic on 06/03/2023. [facility] address: [address] [place] [address] [address] [place] [address] Clinic phone [phone] Clinic fax [phone] We will sign off. Thank you for allowing us to participate in the care of this patient. Please callback if patient should undergo any surgical intervention so cultures can be evaluated and antibiotic plan can be modified as needed. Patient seen, examined, and case/plan were discussed with my attending physician, Dr. Carlson Case discussed with primary team. I spent over 35 min in the care of this patient, and over 50% of that time was spent in counseling and coordination of care. Roxanna Roth PA-C, [facility] Division of Infectious Disease [facility] Pager: [phone] [facility] Clinic Associated attestation - Chloe Carlson MD - 04/30/2023 6:25 PM CDT [facility] Infectious Diseases Attending Note Documentation Date/Time: 04/30/2023, 6:24 PM The patient was seen and evaluated with Roxanna Roth PA-C, [facility]. I agree with the findings as described in the note, including the history, interval changes, ROS, examination, objective data interpretation, impression and plan as documented. Chloe Carlson MD Infectious Diseases Attending * Felipe Bishop Jr., PharmD - 04/30/2023 9:04 AM CDT ACTIVE CONSULTS TO PHARMACY/DISEASE STATE MONITORING Pharmacy Consult: Vancomycin ASSESSMENT/PLAN Indication: documented diabetic ulcer w/ Osteomyelitis of R calcaneal tuberosity with Goal Level: AUC 400-600 -->transitioned to serial dosing for random levels < 20 mcg/ml until BOBBY resolves >>transferred from [facility] on dapto, ceftriaxone, metronidazole (admit there 04/15) -->vascular wanted BKA but pt refused at that time >>hx left AKA in Dec 2022 ID consulted/following: Yes Assessment: ?? Day of treatment: 5 ?? End of treatment date: to be determined - 6 week from what date? ?? Current dosing regimen: Previous dosing 1500 mg, Q12 hr --->has since been held (last dose 04/27) ?? Renal assessment: considered difficult to accurately assess at this time as patient has underlying condition that may impact CrCl calculation (e.g. immobility/para vs. quadriplegia, low body weight, amputation(s) > 10% BSA, etc). ??? MRSA positive: Yes, hx of MRSA; more recently wound cx Strep B ??? See chart below Recent Labs Component Name 04/30/23 0637 04/29/23 0338 04/28/23 0319 04/27/23201804/27/23 0729 12/08/22 1256 12/07/22 0534 VANCORNDM 18.4 25.6 - - - 16.8 18.5 VANCTROUGH - - 34.6* - - - - VANCOPEAK - - - 46.6* 42.0* - - ?? Due to above alterations in patient specific kinetics and renal assessment patient previously has required less frequent dosing of Q24-36 h dosing ??? Currently unable to rely on kinetics but can help guide dosing based on vancomycin clearance trends . o 2 lvl kinetics from 04/28 suggest Vd = 72 and ke = 0.0425 (t1/2 = 16h) o 2 lvl kinetics across 04/29 show ke=0.0125 (t 1/2 = 55) - indicates worsening drug clearance and renal function over that time o 2 lvl kinetics from 04/29 into 04/30 show ke = 0.0122 (t 1/2 life = ~ 60hr) - indicates still poor drug clearance and but stabilizing renal function Plan ??? Dosing: o Will continue serial dosing and order x1 1000 mg dose this AM . o Once renal stabilizes likely can restart a dosing scheme of 3497-8141 mg Q24 hr to target at AUC 500s ??? Monitoring o Will order a vancomycin random level on 05/01 at 0400 and adjust regimen if indicated. o Continue to monitor patient???s renal function and cultures as needed. Felipe Bishop Jr., PharmD 04/29/2023 9:04 AM [facility] Vancomycin Guideline SUBJECTIVE/OBJECTIVE Gay Canales is a 32 year old female. The primary encounter diagnosis was Diabetic ulcer of left heel associated with type 2 diabetes mellitus, unspecified ulcer stage (CMS/HCC). Diagnoses of Chronic diastolic congestive heart failure (CMS/HCC), 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, unspecified ulcer stage (CMS/HCC), Left foot infection, and 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, with necrosis of bone (CMS/HCC) were also pertinent to this visit. Height: 5' 7 (170.2 cm) Wt 140 kg (308 lb 9.6 oz) Body mass index is 48.33 kg/m??. Recent Labs Component Name 04/30/23 0637 04/29/23 0338 04/28/23 0319 04/27/23 0729 CREATININE 1.58* 1.45* 1.39* 1.18* BUN 14 13 13 12 WBC 10.2 11.4* 12.3* 13.8* IO last 3 completed shifts In: 360 (2.6 mL/kg) [P.O.:360] Out: - (0 mL/kg) Net: 360 Weight: 140 kg Dialysis Orders (72h ago, onward) None Radiocontrast within 72 hours The 3 most recent administrations since 04/25/2023 are shown below each listed medication. Other Order Route Dose Action Date gadobutrol (Gadavist) injection Intravenous 10 mL $ Given - Contrast 04/28/2023 Vancomycin Administrations from JAN (last 72 hours) Date/Time Action Medication Dose Rate 04/28/23 0607 Held [per supervisor international reservations A d/t trough >24] vancomycin (Vancocin) 1,500 mg in 500 mL NaCl IVPB Premix 0 mL/hr 04/27/23 1710 $ New Bag/Syringe vancomycin (Vancocin) 1,500 mg in 500 mL NaCl IVPB Premix 1,500 mg 333.33 mL/hr 04/27/23 0554 $ New Bag/Syringe vancomycin (Vancocin) 1,500 mg in 500 mL NaCl IVPB Premix 1,500 mg 333.33 mL/hr 04/26/23 1725 $ New Bag/Syringe vancomycin (Vancocin) 2,500 mg in 550 mL IVPB 2,500 mg 220 mL/hr * Selam Person MD - 04/30/2023 8:57 AM CDT Internal Medicine Progress Note 04/30/2023 @ 8:57 AM Admit Date: 04/26/2023 - Length of Stay 4 Day(s) Subjective: Patient was resting comfortably on evaluation, again confirms that she does not want an amputation.Reports being chilly as result of the temperature in the room, denies any subjective fevers/chills,no chest pain, shortness a breath. Objective: Temp: [97.7 ??F (36.5 ??C)-98.8 ??F (37.1 ??C)] 97.7 ??F (36.5 ??C) Pulse: [79-87] 81 Resp: [14-20] 14 BP: (130-154)/(69-89) 144/84 General: NAD, resting comfortably, no diaphoresis, obese HEENT: ATNC, sclera anicteric, MMM, no LAD, NC in place Cardiac: RRR, normal S1 and S2, no m/r/g Respiratory: No increased wob, LCTAB Abdomen: Soft, NTND, bs+ Extremities: Left AKA noted, significant lymphedema noted to rle Skin: No rash or ecchymoses, xeroderma to rle, dressing on foot is C/D/I Data reviewed including pertinent labs, imaging, diagnostics. Imaging: MRI TIBIA FIBULA RIGHT WWO CONT Result Date: 04/29/2023 IMPRESSION: 1.No evidence of osteomyelitis in the tibia and fibula. 2.Cellulitis and myositis of the right leg the level of the knee predominantly involving the posterior compartment muscles. 3.Partially seen osteomyelitis of the calcaneus and soft tissue abscess at the medial aspect of the ankle are better visualized on the prior MRI ankle dated 04/28/2023. The report was drafted by Dante Schultz MD (resident inspector) I, Arthur Avery MD have personally reviewed and interpreted this examination/study. > Interpreting Provider: Arthur Avery MD on 04/29/2023 9:57 AM MRI ANKLE RIGHT WWO CONTRAST Result Date: 04/28/2023 IMPRESSION: 1.Bone marrow signal abnormality involving the [...] report was drafted by Dante Schultz MD (resident inspector) I, Arthur Avery MD have personally reviewed and interpreted this e xamination/study. > Interpreting Provider: Arthur Avery MD on 04/28/2023 9:35 AM MRI FOOT RIGHT WWO CONTRAST Result Date: 04/28/2023 IMPRESSION: 1.Bone marrow signal abnormality involving the [...] report was drafted by Dante Schultz MD (resident inspector) I, Arthur Avery MD have personally reviewed and interpreted this e xamination/study. > Interpreting Provider: Arthur Avery MD on 04/28/2023 9:35 AM Assessment/Plan: 1. 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 ([facility]) 2. CHF (congestive heart failure) ([facility]) 3. S/P AKA (above knee amputation) unilateral, left ([facility]) 4. Anemia 5. Dm 2 -------all above problems POA--------- 1. 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 ([facility]) -unfortunately, BKA has been recommended but patient has declined she already has a right AKA. She would like to attempt long-term IV antibiotics in an effort to treat her heel osteomyelitis. Id consulted, appreciate recommendations. -PICC line in place. Continue vancomycin, ceftriaxone and metronidazole. EOT of 06/07/2023. Patientwill need weekly CBC with diff, CMP and vanc trough. Please obtain ESR and CRP after 3 weeks of antibiotics, roughly around 05/03/2023. -Continue Nathaniel and Glucerna. - local Wound care. 2. CHF (congestive heart failure) ([facility]), HFpEF, HTN -no evidence of acute decompensation. Continue amlodipine, carvedilol, losartan and Lasix 3. S/P AKA (above knee amputation) unilateral, left ([facility]) -continue PT/OT, may benefit from post acute care at time of discharge 4. Anemia -hemoglobin 8.1 which is patient's baseline. Continue to monitor and transfuse for hemoglobin less than 7 5. Dm 2 -hemoglobin A1c 6.7%. Continue dm diet and SSI with meals. Nutrition: Diabetic diet DVT Prophylaxis: Heparin Code: Limited resuscitation Dispo: Inpatient monitoring, may be a candidate for SNF versus acute rehab for ongoing therapy and IV antibiotics Hospital Course: Hospital Course: Patient is a 32 y/o female with a past medical history of T2DM, HTN, HFpEF, left AKA who was transferred from [facility] on 04/26 for evaluation and second opinion of right diabetic foot ulcer.She was originally admitted to [facility] on 04/15 for dyspnea and non-productive cough thought to be due to exacerbation of her HPpEF. At that time, she was found to have a right diabetic footulcer that had??been present for 4-5 months. Wound cultures grew GBS and imaging showed the evidence of soft tissue gas and R calcaneal osteomyelitis. Patient was placed on daptomycin, Rocephin, and Flagyl, but daptomycin was discontinued due to elevated CK levels. ?? At [facility], the patient was placed on daptomycin and Flagyl. The patient has been followed by vascularsurgery and ID. X-ray of the R foot confirms soft-tissue gas and osteomyelitis of the R calcaneal tuberosity.??MRI of the R foot, ankle, tibia/fibula show osteomyelitis of R calcaneus without involvement of tibia and fibula. Daptomycin discontinued and patient placed on vancomycin and ceftriaxone, along with Flagyl due to elevated CK levels, per ID recommendations.??ABIs are 1.26, vascular surgery recommends amputation, but patient refuses. Discussions are ongoing between patient and vascular surgery/ID regarding surgical intervention.? Previous to the 04/15 admission, patient had been following with wound management weekly, who told her the wound was improving. Wound cultures grew GBS and MRSA on 03/03, so patient underwent an office debridement and was placed on doxycycline, gentamicin, and ketoconazole. Augmentin and topical mupirocin were added to the antibiotic regimen by wound management on 03/17 and 03/24, respectively.? Selam Person MD 04/30/2023 * Bobbi Joe MD - 04/29/2023 7:03 PM CDT Images from the original note were not included. Subjective: Patient was seen and examined at bedside. No acute event in my assessment. Orders were reviewed and adjusted to fit the floor. Patient to be monitored and kept stable until the morning. The medical information in this note is brief summary for the plan from the last medical note/s written by the previous team/s. Medical management to be continued by the day team. Hospital Course: Patient is a 32 y/o female with a past medical history of T2DM, HTN, HFpEF, left AKA who was transferred from [facility] on 04/26 for evaluation and second opinion of right diabetic foot ulcer.She was originally admitted to [facility] on 04/15 for dyspnea and non-productive cough thought to be due to exacerbation of her HPpEF. At that time, she was found to have a right diabetic footulcer that had??been present for 4-5 months. Wound cultures grew GBS and imaging showed the evidence of soft tissue gas and R calcaneal osteomyelitis. Patient was placed on daptomycin, Rocephin, and Flagyl, but daptomycin was discontinued due to elevated CK levels. ?? At [facility], the patient was placed on daptomycin and Flagyl. The patient has been followed by vascularsurgery and ID. X-ray of the R foot confirms soft-tissue gas and osteomyelitis of the R calcaneal tuberosity. MRI of the R foot, ankle, tibia/fibula show osteomyelitis of R calcaneus without involvement of tibia and fibula. Daptomycin discontinued and patient placed on vancomycin and ceftriaxone, along with Flagyl due to elevated CK levels, per ID recommendations. ABIs are 1.26, vascular surgery recommends amputation, but patient refuses. Discussions are ongoing between patient and vascular surgery/ID regarding surgical intervention. ? Previous to the 04/15 admission, patient had been following with wound management weekly, who told her the wound was improving. Wound cultures grew GBS and MRSA on 03/03, so patient underwent an office debridement and was placed on doxycycline, gentamicin, and ketoconazole. Augmentin and topical mupirocin were added to the antibiotic regimen by wound management on 03/17 and 03/24, respectively.? Objective: Patient Vitals for the past 6 hrs: Temp Pulse Resp BP BP Method 04/29/23 1850 98.5 ??F (36.9 ??C) 81 20 131/73 -- 04/29/23 1624 98.4 ??F (36.9 ??C) 87 18 141/89 Automatic . Recent Labs Component Name 04/29/23 0338 04/28/23 0319 04/27/23 0729 04/26/23 0629 12/12/22 0144 12/11/22 0020 12/10/22 0036 12/05/22 1006 02/01/35712/02/22195408/22/2231608/21/22 0846 WBC 11.4* 12.3* 13.8* - 12.9* 12.5* 15.1* - 24.8* - 9.6 11.7* RBC 2.89* 2.91* 2.96* - 3.29* 3.74* 3.49* - 3.65* - 3.04* 3.25* HGB 7.4* 7.4* 7.7* - 7.5* 8.4* 8.0* - 8.2* - 8.1* 8.6* HCT 25.1* 24.6* 25.7* - 25.4* 30.2* 26.9* - 28.0* - 26.8* 28.6* MCV 86.9 84.5 86.8 - 77.2* 80.7 77.1* - 76.7* - 88.2 88.0 MCHC 29.5* 30.1* 30.0* - 29.5* 27.8* 29.7* - 29.3* - 30.2* 30.1* PLTCOUNT 623* 588* 574* - 541* 532* 619* - 446* - 571* 584* NEUTPCT - - - - 65.4 65.5 - - 79.0* - 61.7 69.5 LYMPHPCT - - - - - - - - - - 24.8 21.2 BASOPHILPCT - - - - - - - - - - 0.2 0.3 GRANSIMMPCT - - - - - - - - - - 0.4 0.5 NEUTABS - - - - 8.40* 8.15* 11.93* - 19.59* - 5.91 8.13* LYMPHABS - - - - - - - - - - 2.37 2.48 BASOABS - - - - - - - - - - 0.02 0.03 - = values in this interval not displayed. . Recent Labs Component Name 04/29/23 0338 04/28/23 0319 04/27/23 0729 04/26/2329 12/03/2224112/02/22195408/25/2208/24/22 1404 08/24/22 0725 08/22/22 0317 08/21/22 0847 SODIUM - - - - - - 142 143 138 - 146* POTASSIUM 3.8 3.6 3.7 3.6 - 3.9 3.6 3.7 5.2* - 2.9* CHLORIDE - - - - - - 107 103 110* - 108* CO2 31* 31* 33* 31* - 17* 26 30 20* - 28 BUN 13 13 12 13 - 27* 13 9 8 - 7 CREATININE 1.45* 1.39* 1.18* 1.22* - 2.95* 1.58* 1.43* 1.42* - 1.62* GLUCOSE 129* 115 137* 133* - 53* 211* 145* 165* - 180* CALCIUM 8.0* 7.8* 7.8* 7.7* - 7.6* 7.9* 8.2* 7.8* - 8.2* ALT - - - 43 - 38 - - - - 11 ALKPHOS - - - 203* - 313* - - - - 87 AST - - - 78* - 47* - - - - 5 TBIL - - - - - - - - - - 0.3 TPROT - - - - - - - - - - 5.5* EGFR 50* 52* 64* 61* - 21* 45* 51* 51* - 44* ALBUMIN - - - - - - 2.0* 2.1* 1.7* - 2.2* - = values in this interval not displayed. Assessment and plan: #Right foot diabetic ulcer complicated by R calcaneal tuberosity osteomyelitis - Wound culture done at [facility] showed positive strep agalactiae - WBC is 11.4, improving from 12.3 on 04/28 - Hemoglobin A1c 6.7 - HIV screening test and HCV antibody tests ordered per ID recommendation, both are non-reactive - C-reactive protein ordered per ID, level is 2.4 - Blood cultures from 04/27 show no growth at 24 hours - ESR from 04/27 105 - MRI of ankle, foot, and tibia/fibula show osteomyelitis without involvement of tibia and fibula ?? PLAN: - ID consulted, appreciate recommendations - Daptomycin discontinued due to elevated CK levels, CK on 6/25 at 1624 - Continue ceftriaxone 2 g IV, vancomycin 1.5 g IV, and Flagyl 500 mg IV, per ID - ID will discuss potential surgical interventions with patient tomorrow ?? - Vascular surgery consulted, appreciate recommendations - X-ray of right foot ordered, showed soft tissue gas and right calcaneal osteomyelitis - ABIs with toe pressure resulted as 1.26 - Vascular surgery strongly recommends amputation, but patient refusing - Ongoing discussions with patient about potential surgical interventions - Keep wound wrapped with dry dressing ?? - Will supplement patient with Nathaniel and Glucerna ?? Chronic Problems: #T2DM - hemoglobin A1C 6.7 - Continue sliding scale insulin - Regular accuchecks three times a day ?? #HFpEF #Hypertension - Continue at-home amlodipine 10 mg daily and at-home Coreg 12.5 mg BID - Continue at-home losartan 25 mg daily - Continue Lasix 40 mg PO daily? * Juan Fuentes - 04/29/2023 3:06 PM CDT [facility] INTERNAL MEDICINE PROGRESS NOTE Patient: Gay Canales Sex: female Age: [age] year old Date of : 1990 Date of Admission: 04/26/2023 Date: 04/29/2023 LOS: 3 SUBJECTIVE Interval History: No acute events overnight. Patient denies any pain or tingling of her R foot. She denies any fevers, chills, chest pain, SOB, cough. She had one soft bowel movement yesterday. Patient has been able to sleep well through the night. Hospital Course: Patient is a 32 y/o female with a past medical history of T2DM, HTN, HFpEF, left AKA who was transferred from [facility] on 04/26 for evaluation and second opinion of right diabetic foot ulcer.She was originally admitted to [facility] on 04/15 for dyspnea and non-productive cough thought to be due to exacerbation of her HPpEF. At that time, she was found to have a right diabetic footulcer that had been present for 4-5 months. Wound cultures grew GBS and imaging showed the evidenceof soft tissue gas and R calcaneal osteomyelitis. Patient was placed on daptomycin, Rocephin, and Flagyl, but daptomycin was discontinued due to elevated CK levels. ?? At [facility], the patient was placed on daptomycin and Flagyl. The patient has been followed by vascularsurgery and ID. X-ray of the R foot confirms soft-tissue gas and osteomyelitis of the R calcaneal tuberosity. MRI of the R foot, ankle, tibia/fibula show osteomyelitis of R calcaneus without involvement of tibia and fibula. Daptomycin discontinued and patient placed on vancomycin and ceftriaxone, along with Flagyl due to elevated CK levels, per ID recommendations. ABIs are 1.26, vascular surgery recommends amputation, but patient refuses. Discussions are ongoing between patient and vascular surgery/ID regarding surgical intervention. ?? Previous to the 04/15 admission, patient had been following with wound management weekly, who told her the wound was improving. Wound cultures grew GBS and MRSA on 03/03, so patient underwent an office debridement and was placed on doxycycline, gentamicin, and ketoconazole. Augmentin and topical mupirocin were added to the antibiotic regimen by wound management on 03/17 and 03/24, respectively. OBJECTIVE Vital Signs: Vitals: 04/29/23 0023 04/29/23 0444 04/29/23 0835 04/29/23 1228 BP: 133/78 141/89 130/69 Pulse: 85 84 84 84 Resp: 20 19 18 Temp: 98.5 ??F (36.9 ??C) 98.4 ??F (36.9 ??C) 98.1 ??F (36.7 ??C) SpO2: 92% 97% 94% 97% Weight: Height: Temp Min: 98.1 ??F (36.7 ??C) Max: 98.7 ??F (37.1 ??C), Pulse Min: 84 Max: 102, Resp Min: 16 Max: 24, BP Min: 113/62 Max: 168/98 Intake & Output: In: 1070 [P.O.:590] Out: 200 [Urine:200] Physical Exam: Physical Exam Constitutional: General: She is not in acute distress. Cardiovascular: Rate and Rhythm: Normal rate and regular rhythm. Heart sounds: Normal heart sounds. No murmur heard. No friction rub. No gallop. Pulmonary: Effort: Pulmonary effort is normal. No respiratory distress. Breath sounds: Normal breath sounds. No wheezing, rhonchi or rales. Abdominal: Palpations: Abdomen is soft. Tenderness: There is no abdominal tenderness. There is no guarding or rebound. Musculoskeletal: Right lower leg: Edema present. Left lower leg: Edema (L AKA with pitting edema of left lower extremity) present. Skin: Findings: Lesion present. Comments: Right foot wrapped with dry dressing and covered in boot. PICC line dry and non-erythematous, no other signs of infection. Neurological: Mental Status: She is alert. Current Medications: Scheduled: ??? 0.9% NaCl 3 mL Intracatheter q8h ??? acetaminophen 1,000 mg Oral TID ??? amLODIPine 10 mg Oral QDAY ??? carvedilol 12.5 mg Oral BID WC ??? cefTRIAXone 2 g Intravenous q24h ??? furosemide 40 mg Oral QDAY ??? gadobutrol Intravenous Contrast - Once ??? gadobutrol Intravenous Contrast - Once ??? heparin 7,500 Units Subcutaneous q8h ??? insulin aspart 0-6 Units Subcutaneous q4h ??? lactobacillus 1 packet Oral TID ??? losartan 25 mg Oral QDAY ??? metroNIDAZOLE 500 mg Intravenous q8h ??? nystatin Topical TID ??? vancomycin (VANCOCIN) IV dose per pharmacy Does not apply DIRECTED Continuous: PRN: ??? SALINE LOCK, INSERT AND MAINTAIN AND 0.9% NaCl AND 0.9% NaCl ??? dextrose IV for hypoglycemia OR dextrose IV for hypoglycemia ??? glucagon ??? glucose (Diabetic Use) ??? glucose (Diabetic Use) gel ??? glucose chew tab ??? oxyCODONE (immediate release) OR oxyCODONE (immediate release) Significant Lab Results: CBC: Recent Labs Component Name 04/29/23 0338 04/28/23 0319 04/27/23 0729 WBC 11.4* 12.3* 13.8* HGB 7.4* 7.4* 7.7* HCT 25.1* 24.6* 25.7* MCV 86.9 84.5 86.8 Coagulation Panel: Recent Labs Component Name 04/26/23 0629 PT 16.3* INR 1.3 PTT 29.8 CMP: Recent Labs Component Name 04/29/23 0338 04/28/23 0319 04/27/23 0729 04/26/23 0629 12/03/222 12/02/22195408/22/2231608/21/22 0847 NA 142 143 144 142 - 139 - - POTASSIUM 3.8 3.6 3.7 3.6 - 3.9 - 2.9* CL 109* 107 107 104 - 106 - - CO2 31* 31* 33* 31* - 17* - 28 BUN 13 13 12 13 - 27* - 7 CREATININE 1.45* 1.39* 1.18* 1.22* - 2.95* - 1.62* CALCIUM 8.0* 7.8* 7.8* 7.7* - 7.6* - 8.2* ALB 1.3* 1.2* 1.2* 1.3* - 0.8* - - ALT - - - 43 - 38 - 11 AST - - - 78* - 47* - 5 - = values in this interval not displayed. Recent Labs Component Name 04/29/23 0338 04/28/2331804/27/23 0729 MAGNESIUM 1.9 1.8 1.5* Recent Labs Component Name 04/29/23 0338 04/28/2331804/27/23 0729 PHOS 3.6 3.2 3.0 Hepatic Panel: Recent Labs Component Name 04/29/23 0338 04/28/2331804/27/23 0729 04/26/2362812/02/22195412/02/22195408/21/22 0847 AST - - - 78* - 47* 5 ALT - - - 43 - 38 11 ALKPHOS - - - 203* - 313* 87 TBILI - - - 0.3 - 1.9* - ALB 1.3* 1.2* 1.2* 1.3* - 0.8* - - = values in this interval not displayed. ABG: Recent Labs Component Name 12/03/22 1856 PH 7.28* Amylase/Lipase: Invalid input(s): AMYL, LIPA Thyroid Studies: No results for input(s): TSH, T4 in the last 17935 hours. Cardiac Enzymes: Recent Labs Component Name 04/27/23 0729 12/02/221954 CKTOTAL 1,624* - TROPONINI - 0.023 Lipid Panel: Recent Labs Component Name 12/02/222032 LDLCALC 74 HDL 8* UA: No components found for: UA Microbiology: Microbiology Results (Displays last 21 days for this encounter ONLY) Procedure Component Value - Date/Time CULTURE BLOOD [[id number]] (Normal) Collected: 04/27/232018 Lab Status: Preliminary result Specimen: Blood Peripheral Updated: 04/28/23 2230 Culture No growth 24 hours RESPIRATORY PANEL WITH SARS-COV-2 BY PCR ([facility]) [[id number]] (Normal) Collected: 04/27/23 1148 Lab Status: Final result Specimen: Microbiology from Nasopharyngeal Updated: 04/27/23 1627 Adenovirus PCR Not detected Coronavirus 229E PCR Not detected Coronavirus HKU1 PCR Not detected Coronavirus NL63 PCR Not detected Coronavirus OC43 PCR Not detected COVID-19 PCR Not detected Human Metapneumovirus PCR Not detected Human Rhinovirus/Enterovirus PCR Not detected Influenza A PCR Not detected Influenza B PCR Not detected Parainfluenza Virus 1 PCR Not detected Parainfluenza Virus 2 PCR Not detected Parainfluenza Virus 3 PCR Not detected Parainfluenza Virus 4 PCR Not detected Respiratory Syncytial Virus PCR Not detected Bordetella parapertussis PCR Not detected Bordetella pertussis PCR Not detected Chlamydia pneumoniae PCR Not detected Mycoplasma pneumoniae PCR Not detected Narrative: This nucleic amplification assay has received FDA authorization via the [employer]. CULTURE BLOOD [[id number]] (Normal) Collected: 04/27/23 0729 Lab Status: Preliminary result Specimen: Blood Peripheral Updated: 04/29/23 1030 Culture No growth Imaging & Studies: MRI TIBIA FIBULA RIGHT WWO CONT Result Date: 04/29/2023 PROCEDURE: MRI TIBIA FIBULA RIGHT WWO CONT DATE/TIME OF EXAM: 04/29/2023 7:30 AM CLINICAL INFORMATION: None relevant/not provided if blank. Indication: E11.621: Diabetic ulcer of right heel associatedwith type 2 diabetes mellitus, unspecified ulcer stage [...] dated 04/28/2023. There is diffuse soft tissue edemaconsistent with cellulitis. There is also diffuse muscle enhancement in the leg predominantly the posterior compartment consistent with myositis. IMPRESSION: 1.No evidence of osteomyelitis [...] report was drafted by Dante Schultz MD (resident inspector) I, Arthur Avery MD have personally reviewed and interpreted this examination/study. > Interpreting Provider: Arthur Avery MD on 04/29/2023 9:57 AM MRI ANKLE RIGHT WWO CONTRAST Result Date: 04/28/2023 PROCEDURE: MRI ANKLE RIGHT WWO CONTRAST, MRI FOOT RIGHT WWO CONTRAST DATE/TIME OF EXAM: 04/28/2023 5:48 AM CLINICAL INFORMATION: None relevant/not provided if blank. Indication: E11.621: 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, unspecified ulcer stage (CMS/HCC) L97.419:Diabetic ulcer of right heel associated with type [...] and series 14 image 8), consistent with abscess.There is extension of the purulence posteriorly to [...] T2 hyperintense bone marrow signal abnormality in themid shaft of the fifth digit metatarsal (series [...] report was drafted by Dante Schultz MD (resident inspector) I, Arthur Avery MD have personally reviewed and interpreted this e xamination/study. > Interpreting Provider: Arthur Avery MD on 04/28/2023 9:35 AM MRI FOOT RIGHT WWO CONTRAST Result Date: 04/28/2023 PROCEDURE: MRI ANKLE RIGHT WWO CONTRAST, MRI FOOT RIGHT WWO CONTRAST DATE/TIME OF EXAM: 04/28/2023 5:48 AM CLINICAL INFORMATION: None relevant/not provided if blank. Indication: E11.621: 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, unspecified ulcer stage (CMS/HCC) L97.419:Diabetic ulcer of right heel associated with type [...] and series 14 image 8), consistent with abscess.There is extension of the purulence posteriorly to [...] T2 hyperintense bone marrow signal abnormality in themid shaft of the fifth digit metatarsal (series [...] report was drafted by Dante Schultz MD (resident inspector) I, Arthur Avery MD have personally reviewed and interpreted this e xamination/study. > Interpreting Provider: Arthur Avery MD on 04/28/2023 9:35 AM XR CHEST 1VW PORTABLE Result Date: 04/27/2023 PROCEDURE: XR CHEST 1VW PORTABLE, DATE/TIME OF EXAM: 04/27/2023 5:51 AM, LOCATION [facility] INDICATION: E11.621: Diabetic ulcer of left heel associated with type 2 diabetes mellitus, unspecified ulcer stage (CMS/HCC) L97.429: Diabetic ulcer of left heel associated with type 2 diabetes mellitus, unspecified ulcer stage (CMS/HCC) ADDITIONAL CLINICAL INFORMATION: Ordering Provider Reason For Exam: baseline cxr COMPARISON: Chest x-ray from 04/26/2023. FINDINGS/IMPRESSION: Right upper extremity PICC terminating in superior vena cava. Diffuse interstitial and airspace opacities compatible with pulmonary edema or pneumonia. No pneumothorax. Cardiac silhouette is enlarged. > Dictated by Dante Schultz MD (vice president marketing & development). Xander Kim MD have personally reviewed and interpreted this examination/study. > Interpreting Provider: Xander De Guzman MD on 04/27/2023 11:13AM XR FOOT RIGHT 2VW Result Date: 04/26/2023 PROCEDURE: XR FOOT RIGHT 2VW, DATE/TIME OF EXAM: 04/26/2023 1:47 PM, LOCATION [facility] INDICATION: E11.621: 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, unspecified ulcer stage (CMS/HCC) L97.419: 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, unspecified ulcer stage ([facility]/HCC) ADDITIONAL CLINICAL INFORMATION: Ordering Provider Reason For Exam: evaluation of right foot ulcer, osteomyelitis COMPARISON: None. FINDINGS: There is radiopaque bandage/dressing material overlying the heel partly obscuring visualization of the soft tissues and bone in this region. There is lucency in the soft tissues in this area compatible with gas.There is cortical erosion and fragmentation at the plantar-posterior aspect of calcaneal tuberositycompatible with osteomyelitis. Diffuse soft tissue swelling. Report dictated by Golden Kiser DO (vice president marketing & development) 04/26/2023 2:42 PM. Xander Kim MD have personally reviewed and interpreted this examination/study. > Interpreting Provider: Xander De Guzman MD on 04/26/2023 5:41 PM XR CHEST 1VW PORTABLE Result Date: 04/26/2023 PROCEDURE: XR CHEST 1VW PORTABLE, DATE/TIME OF EXAM: 04/26/2023 8:51 AM, LOCATION [facility] INDICATION: E11.621: Diabetic ulcer of left heel associated with type 2 diabetes mellitus, unspecified ulcer stage (CMS/HCC) L97.429: Diabetic ulcer of left heel associated with type 2 diabetes mellitus, unspecified ulcer stage (CMS/HCC) ADDITIONAL CLINICAL INFORMATION: Ordering Provider Reason For Exam: PICC placement COMPARISON: Chest x-ray from 12/02/2022 FINDINGS/IMPRESSION: Intervalplacement of right Upper extremity PICC line terminating in the right atrium. There is redemonstration of cardiomegaly. There are prominent and intervally increased interstitial opacities, right greater than left likely representing pulmonary edema in setting of cardiomegaly. There is probable trace volume pleural effusions bilaterally. There is no pneumothorax identified. Report dictated by Golden Kiser DO(vice president marketing & development). I, Xander De Guzman MD have personally reviewed and interpreted this examination/study. > Interpreting Provider: Xander De Guzman MD on 04/26/2023 5:15 PM Results for orders placed or performed during the hospital encounter of 04/26/23 EKG 12-LEAD Result Value Ref Range Ventricular Rate 88 BPM Atrial Rate 88 BPM P-R Interval 158 ms QRS Duration ms 80 ms Q-T Interval ms 374 ms QTC Calculation (Bezet) 452 ms Calculated P Procious 44 degrees Calculated R Procious -2 degrees Calculated T Procious 17 degrees Interpretation EKG NORMAL SINUS RHYTHM NONSPECIFIC T WAVE ABNORMALITY ABNORMAL ECG WHEN COMPARED WITH ECG OF 03-DEC-2022 03:00, NO SIGNIFICANT CHANGE WAS FOUND Confirmed by JOSE HIGGINS MD ([id number]) on 04/28/2023 10:48:39 AM ASSESSMENT & PLAN CHF (congestive heart failure) (CMS/HCC) (POA: Yes) S/P AKA (above knee amputation) unilateral, left (CMS/HCC) (POA: Yes) 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 (CMS/HCC) (POA: Yes) Anemia (POA: Yes) Gay Canales is a 32 year old female with PMH of T2DM, HTN, HFpEF, left AKA in 12/2022 who presented to [facility] from [facility] on 04/26 for second opinion and evaluation of a right foot diabeticulcer. Plan: #Right foot diabetic ulcer complicated by R calcaneal tuberosity osteomyelitis - Wound culture done at [facility] showed positive strep agalactiae - WBC is 11.4, improving from 12.3 on 04/28 - Hemoglobin A1c 6.7 - HIV screening test and HCV antibody tests ordered per ID recommendation, both are non-reactive - C-reactive protein ordered per ID, level is 2.4 - Blood cultures from 04/27 show no growth at 24 hours - ESR from 04/27 105 - MRI of ankle, foot, and tibia/fibula show osteomyelitis without involvement of tibia and fibula ?? PLAN: - ID consulted, appreciate recommendations - Daptomycin discontinued due to elevated CK levels, CK on 04/27 at 1624 - Continue ceftriaxone 2 g IV, vancomycin 1.5 g IV, and Flagyl 500 mg IV, per ID - ID will discuss potential surgical interventions with patient tomorrow ?? - Vascular surgery consulted, appreciate recommendations - X-ray of right foot ordered, showed soft tissue gas and right calcaneal osteomyelitis - ABIs with toe pressure resulted as 1.26 - Vascular surgery strongly recommends amputation, but patient refusing - Ongoing discussions with patient about potential surgical interventions - Keep wound wrapped with dry dressing ?? - Will supplement patient with Nathaniel and Glucerna Chronic Problems: #T2DM - hemoglobin A1C 6.7 - Continue sliding scale insulin - Regular accuchecks three times a day ?? #HFpEF #Hypertension - Continue at-home amlodipine 10 mg daily and at-home Coreg 12.5 mg BID - Continue at-home losartan 25 mg daily - Continue Lasix 40 mg PO daily Code: DNR/DNI Diet: Diabetic diet Electrolytes: Replete PRN PPx: SCDs Access: Peripheral IV Dispo: Patient will be transferred to [facility], likely within 24 hours [facility] Transfer Checklist: Reasons for Transfer to [facility] Placement for long-term antibiotic treatment because patient does not have adequate support at home to manage the regimen Brief Hospital Course Patient is being worked up for a right diabetic foot ulcer that has been present for 4-5 months. Imaging shows osteomyelitis of right calcaneus and wound cultures from [facility] show positivestrep agalactiae. Patient on IV vancomycin, ceftriaxone, and Flagyl, currently discussing potentialamputation of right foot. However, at this time, patient is refusing amputation. Pertinent PMH: T2DM, HTN, HFpEF, left AKA Home Meds Being Held: None ABx Indications/End Date: Antibiotics for R diabetic foot ulcer complicated by R calcaneus osteomyelitis - likely 6 weeks, but no end date set Consult Teams Past and Present: Vascular surgery Infectious disease Pending Workup: No pending workup Things to Watch: Monitor WBC, random Vancomycin serum levels, vital signs Disposition Place and Date: Likely SNF given the long-term antibiotic requirement and unable to manage at home To Address Prior to DC: Definitive plan of surgical vs. Medical management Follow Up Appointments: (Already arranged and need to arranged) If patient elects to have surgery, she can contact surgery for appointment. Will need appointment with ID if continuing antibiotics. To Address after DC (F/U etc): If patient elects to have surgery, she can contact surgery for appointment. Will need appointment with ID if continuing antibiotics. Please add PRN Narcan order if appropriate for this patient N/A The above assessment and plan will be discussed with the attending. This note is not final until attested by attending physician. Juan Fuentes MS3 [facility] 04/29/2023 3:06 PM Associated attestation - Erin Malone MD - 04/30/2023 7:50 AM CDT I have reviewed the medical student's note for educational purposes. Erin Malone MD * Gonzalo Rivas MD - 04/29/2023 11:45 AM CDT [facility] INTERNAL MEDICINE PROGRESS NOTE Patient: Gay Canales Sex: female Age: [age] year old Date of : 1990 Date of Admission: 04/26/2023 Date: 04/29/2023 LOS: 3 ASSESSMENT & PLAN Gay Canales is a 32 year old female with a past medical history of DM2, HTN, HFpEF, left AKA () that presents 04/26 as OSH transfer for right diabetic foot ulcer. Stable for transfer to [facility] Right diabetic foot ulcer Right calcaneum osteomyelitis - Per chart review, admitted 04/15 at OSH for diabetic foot ulcer - OSH culture positive for strep agalactiae PLAN: - Continue daptomycin and flagyl for 6 weeks total - ID consulted, appreciate recs > vancomycin, ceftriaxone, flagyl, (daptomycin discontinued for elevated CK) > will need antibiotics for 6 weeks, might be able to get it through her port - Vascular surgery consulted > recommends amputation, pt declines amputation. > can call vascular surgery if pt reconsiders amputation > continue abx as above - Nathaniel and Glucerna nutritional supplements - follow blood cultures 04/27, no growth to date ?? Diabetes Mellitus, Type 2 - accuchecks TIDAC qhs, SSI - blood glucose well controlled ?? Hypertension HFpEF - Per chart review, proBNP elevated at OSH PLAN: - Amlodipine 10mg daily, Carvedilol 12.5mg BID - Losartan 25mg daily - Lasix 40mg PO daily - If unable to titrate off O2, consider increasing lasix dose for volume overload ?? Daily Checklist VTE PPX [] SCD [x] SQ Heparin [] SQ Lovenox [] Therapeutic Anticoagulation Stress Ulcer PPX [x] None [] Famotidine [] PPI Fluids Electrolytes Nutrition [x] None [] IV maintenance fluids [] IV colloid infusions K~4.0 Mg~2.0 Phos~3.0 DIET DIABETIC CONSIST CARB DIETARY NUTRITION SUPPLEMENTS DIETARY NUTRITION SUPPLEMENTS DIETARY NUTRITION SUPPLEMENTS LDA External Urinary device PICC R median cubital vein Activity Level: Activity as tolerated Consults IP CONSULT TO VASCULAR SURGERY IP CONSULT TO INFECTIOUS DISEASES IP CONSULT TO NUTRITIONAL SERV Disposition Medical Floor (Inpatient) Code Status LIMITED RESUSCITATION-PRIOR AND AFTER ARREST SUBJECTIVE Interval History: No acute events overnight. Vascular surgery recommended amputation with discussion about risks and benefits. Pt declined and will proceed with IV antibiotic treatment for at least 6 weeks. Pt medically stable for transfer to [facility] as disposition plan is finalized. Hospital Course: Gay Canales is a 32y/o F with PMH of DM2, HTN, HFpEF, left AKA () that presents 04/26 asOSH transfer for right diabetic foot ulcer. Endorses cough when she lays flat, episode of loose watery stool x1, right leg swelling. Denies pain in right leg. Denies fever/chill, CP, SOB, abd pain, n/v. ?? Per chart review, patient was admitted 04/15 at OSH for right diabetic foot ulcer, culture positive for strep agalactiae, evaluated by surgery that recommended a right BKA but declined. Would like to get debridement and 2nd opinion at [facility]. Started on daptomycin and flagyl, ID recommended 6 weeks due to osteomyelitis of right calcaneum. Vascular surgery at [facility] evaluated the pt and recommended a left amputation. Pt declined and will continue antibiotics for at least 6 weeks for osteomyelitis treatment. OBJECTIVE Vital Signs: Vitals: 04/29/23 0444 04/29/23 0835 04/29/23 1228 04/29/23 1624 BP: 133/78 141/89 130/69 141/89 Pulse: 84 84 84 87 Resp: 20 19 18 18 Temp: 98.5 ??F (36.9 ??C) 98.4 ??F (36.9 ??C) 98.1 ??F (36.7 ??C) 98.4 ??F (36.9 ??C) SpO2: 97% 94% 97% 98% Weight: Height: Temp Min: 98.1 ??F (36.7 ??C) Max: 98.7 ??F (37.1 ??C), Pulse Min: 84 Max: 102, Resp Min: 16 Max: 24, BP Min: 113/62 Max: 168/98 Intake & Output: In: 1070 [P.O.:590] Out: 200 [Urine:200] Physical Exam: General: Alert and oriented to person, place, time and situation, no acute distress Neck: No JVD or cartoid bruit. Trachea midline. Heart: RRR, Normal S1 and S2. No murmurs appreciated. Chest: Normal breath sounds, no wheezes or rhonchi Abdomen: Soft, non-tender, non-distended, bowel sounds present Extremities: Left AKA. Right heel ulcer, foul smelling with purulent drainage. Unable to lift leg off bed Neuro: No focal deficits noted No intake or output data in the 24 hours ending 04/29/23 2652 Current Medications: Scheduled: ??? 0.9% NaCl 3 mL Intracatheter q8h ??? acetaminophen 1,000 mg Oral TID ??? amLODIPine 10 mg Oral QDAY ??? carvedilol 12.5 mg Oral BID WC ??? cefTRIAXone 2 g Intravenous q24h ??? furosemide 40 mg Oral QDAY ??? gadobutrol Intravenous Contrast - Once ??? gadobutrol Intravenous Contrast - Once ??? heparin 7,500 Units Subcutaneous q8h ??? insulin aspart 0-6 Units Subcutaneous q4h ??? lactobacillus 1 packet Oral TID ??? losartan 25 mg Oral QDAY ??? metroNIDAZOLE 500 mg Intravenous q8h ??? nystatin Topical TID ??? vancomycin (VANCOCIN) IV dose per pharmacy Does not apply DIRECTED Continuous: PRN: ??? SALINE LOCK, INSERT AND MAINTAIN AND 0.9% NaCl AND 0.9% NaCl ??? dextrose IV for hypoglycemia OR dextrose IV for hypoglycemia ??? glucagon ??? glucose (Diabetic Use) ??? glucose (Diabetic Use) gel ??? glucose chew tab ??? oxyCODONE (immediate release) OR oxyCODONE (immediate release) Significant Lab Results: Reviewed in [facility] Microbiology: Blood cultures pending Respiratory panel pending OSH cultures: Strep agalactiae Imaging & Studies: Reviewed in [facility] MRI R foot pending. The above assessment and plan will be discussed with the attending. This note is not final until attested by attending physician. Gonzalo Rivas MD Internal Medicine Resident [facility] 04/29/2023 5:45 PM Associated attestation - Erin Malone MD - 04/29/2023 10:02 PM CDT I have seen and examined the patient with the resident and I agree with the findings and plan of care as documented by the resident. Date of Service: 04/29/23 Patient oriented x4. She is declining amputation at this time. Ok to proceed with 6 weeks IV abx although unlikely to cure condition based on vascular and ID assessments. Pt reports not having a lot of support at home, thinks it would be best if she could complete abx in a facility instead of home setting. Erin Malone MD * Cony Guamanyuniel - 04/29/2023 11:18 AM CDT Images from the original note were not included. Initial Nutrition Assessment Brief Synopsis: Patient is at Nutrition Risk; Specific criteria can be found in assessment below Nutrition Plan: Continue with Consistent Carb Diet + Nathaniel BID (7gm arginine, 7gm glutamine, 2.5g collagen protein, 300mg VIT C, 9.5mg zinc) + Vanilla Glucerna TID (220 kcals, 10 g Pro, 26 g CHO) + Fiber Additive QID Recommendations to Physician: - Consider vitamin C supplementation Comments: RD consulted for MST of wounds. Wound images reviewed. Pt denies N/V/C. Pt experiencing diarrhea x2 04/28. Pt on fiber additive QID. Labs reviewed. A1c 6.7. BG 129. Ca 8.0. Edema present in left AKA with pitting edema throughout the rest of the leg. Pt reports appetite is improving. Pt averagely consuming 75% of meals provided. VACCINE MANAGER pt reports appetite was poor and she grazed through meals. Education provided on the benefit of Oral Nutrition Supplements (ONS) to aid with meeting calorieand protein needs and maintaining weight when po intake is poor. Pt likes the Glucerna and wishes to continue to receive the vanilla flavor. Pt received diabetes education at previous admission - pt has no further questions at this time. Education was provided on nutrition and wound healing. Discussed protein, vitamin A and vitamin C food sources to include at meal times. Reviewed importance of good BG control & adequate hydration. Educated patient on the benefits of Nathaniel and wound healing and encouraged to consume 2 servings daily. Nathaniel nutrition supplement contains conditionally essential nutrients to support wound healing by enhancing collagen production. Nathaniel (Wound Healing Supplement) provides 90 calories, 14 grams amino acid (7 gm L-arginine & 7 gm L- glutamine), 2.5 grams protein (hydrolyzed collagen), 8 grams of carb per serving along with 9.5mg Zinc, 300mg Vit C, 15 mg Vitamin E, and 1.2 mcg Vitamin B12. P t provided with handout. Will continue to monitor per clinical nutrition guidelines. Assessment: Med/Surg History and Clinical Diagnoses: 32 year old female with PMHx s/f T2DM (on home insulin) s/p L AKA (12/05/[address] Rodgers) who presented initially for R heel ulcer Height: 170.2 cm (5' 7 ) Weight: (!) 140 kg (308 lb 9.6 oz) BMI: Body mass index is 48.33 kg/m??. BMI Range: Morbidly Obese Class 3 IBW/lb (Calculated) Female: 135, Recent Weights/Methods 12/03/2022 0128 12/04/2022 0345 12/05/2022 0430 12/11/2022 0407 12/12/2022 0335 12/19/2022 1027 01/09/2023 1004 04/26/2023 0450 Weight: 145 kg (319 lb 10.7 oz) 148.5 kg (327 lb 6.1 oz) 156.9 kg (346 lb) 140.6 kg (310 lb) 140.6 kg (310 lb) 128.4 kg (283 lb) 127 kg (280 lb) 140 kg (308 lb 9.6 oz) Weight Method (Utilize Scales): Bedscale [facility] -- -- Bedscale Diet order accuracy Current diet order: Consistent Carb Standard Current supplement order: Glucerna TID, Nathaniel BID, Fiber additive QID Nutrition recommendation: agree with current nutrition order P.O.Intake for the past 48 hrs: % Meal Taken Av % Min: 75 % Max: 75 % Supplement(s) Consumed- Last 48 hours Date/Time Dietary Supplement Name Liquid Supplement Consumed (mL) Non-Liquid Supplement Consumed (%) 04/28/23 1200 -- 240 ML -- 04/28/23 1700 -- 240 ML -- Food Allergies: No known food allergies GI Concerns: Diarrhea (x2 04/28) Chewing/Swallowing: None Pain affecting intake: No Estimated Needs: KCAL: 5062-9762 (30-35 kcal/kg) Protein (g): 74-92 (1.2-1.5 g/kg) Fluid (ml): 1 ml/kcal Needs based on: Kcal/kg- (Comment) (61.3 kg IBW) Recommended Access Route: PO Laboratory values: Recent Labs Component Name 04/29/23 0338 04/28/23 0319 04/27/23 0729 04/26/23 0629 12/03/22 0242 12/02/22 1955 08/22/22 0317 08/21/22 0847 BUN 13 13 12 13 - 27* - 7 CREATININE 1.45* 1.39* 1.18* 1.22* - 2.95* - 1.62* NA 142 143 144 142 - 139 - - POTASSIUM 3.8 3.6 3.7 3.6 - 3.9 - 2.9* CL 109* 107 107 104 - 106 - - CO2 31* 31* 33* 31* - 17* - 28 GLUCOSE 129* 115 137* 133* - 53* - 180* CALCIUM 8.0* 7.8* 7.8* 7.7* - 7.6* - 8.2* PROT - - - 5.4* - 6.0 - - ALB 1.3* 1.2* 1.2* 1.3* - 0.8* - - TBILI - - - 0.3 - 1.9* - - ALKPHOS - - - 203* - 313* - 87 ALT - - - 43 - 38 - 11 AST - - - 78* - 47* - 5 ANIONGAP 6* 9 8 11 - 20* - 10 BCR 9 9 10 11 - 9 - - OSMOLALITY 296 297 300 296 - 291 - - AGRATIO - - - 0.3* - 0.2* - - EGFR 50* 52* 64* 61* - 21* - 44* - = values in this interval not displayed. Medications: Current Facility-Administered Medications Medication ??? 0.9% NaCl injection 3 mL And ??? 0.9% NaCl injection 1-10 mL ??? acetaminophen (Tylenol) tablet 1,000 mg ??? amLODIPine (Norvasc) tablet 10 mg ??? carvedilol (Coreg) tablet 12.5 mg ??? cefTRIAXone (Rocephin) 2,000 mg in 0.9% NaCl IV 50 mL IVPB ??? dextrose 10 % IV bolus Or ??? dextrose 10 % IV bolus ??? furosemide (Lasix) tablet 40 mg ??? gadobutrol (Gadavist) injection ??? gadobutrol (Gadavist) injection ??? glucagon (Glucagen) injection 1 mg ??? glucose (Diabetic Use) (Dex4 Glucose) oral liquid ??? glucose (Diabetic Use) oral gel ??? glucose chew tablet 4 tablet ??? heparin injection 7,500 Units ??? insulin lispro (HumaLOG;ADMelog) 100 UNIT/ML pen 0-6 Units ??? lactobacillus (Lactinex) granules 1 packet ??? losartan (Cozaar) tablet 25 mg ??? metroNIDAZOLE (Flagyl) 500 mg in 100 mL IVPB ??? nystatin (Mycostatin) powder ??? oxyCODONE (immediate release) (Roxicodone) tablet 5 mg Or ??? oxyCODONE (immediate release) (Roxicodone) tablet 10 mg ??? vancomycin (Vancocin) IV dose per pharmacy Skin/Wound: Exceptions per nursing (Upper lateral leg, Right foot, medial abdomen) Education needed: Wound Healing;Supplements Education Provided: Yes;Handout Provided Expected level of compliance: Good Nutrition Care Process (1) Nutrition Diagnostic Statement: Increased nutrient needs related to:: increased demands for wound healing as evidenced by:: estimated energy needs ..;estimated protein needs .. Nutrition Diagnostic Statement Progress: New diagnostic statement established Nutrition Intervention: Meals and snacks:;Medical Food Supplements: Monitoring: GI, PO intake, I&O's, weight, labs, medications, nutrition education compliance, nutrition supplement tolerance Evaluation: Nutrition Goal: Total intake will meet estimated nutrient needs Nutrition Goal Timeframe: Throughout stay Nutrition Goal Progress: New goal established DARLING Vásquez Clinical Care Leader * Curry Campos MD - 04/29/2023 10:00 AM CDT Images from the original note were not included. VASCULAR SURGERY PROGRESS NOTE ADMIT: 04/26/2023 4:41 AM LOS: 3 days 04/29/2023 HISTORY: Gay Canales is a 32 year old female with PMHx s/f T2DM (on home insulin) s/p L AKA (12/05/[address] Rodgers) who presented initially for R heel ulcer. This has been ongoing for 2-3 months. Wound care wereapplying ointments , but the wound has persisted. This was reportedly associated with intermittent drainage. She denies fevers, chills, nausea, or vomiting. ?? She uses a wheelchair at home and does not ambulate on RLE because it feels heavy . She has not worn a prosthesis to her LLE. Nonetheless, she is adamant about not wanting another amputation since she has already dealt with one before. ?? Denies alcohol use, smoking, and IVDU. SUBJECTIVE: NAEON. No fevers or chills. Minimal LE pain. Anticoagulation/Antiplatelet: none Antibiotics: vanc, ceftriaxone, and flagyl OBJECTIVE: Blood pressure 141/89, pulse 84, temperature 98.4 ??F (36.9 ??C), temperature source Oral, resp. rate 19, height 1.702 m (5' 7 ), weight (!) 140 kg (308 lb 9.6 oz), last menstrual period 08/08/2022, SpO2 94 %, not currently . Temp: [98.2 ??F (36.8 ??C)-98.7 ??F (37.1 ??C)] 98.4 ??F (36.9 ??C) Pulse: [84-86] 84 Resp: [19-20] 19 BP: (113-149)/(62-89) 141/89 DIET: DIET DIABETIC CONSIST CARB DIETARY NUTRITION SUPPLEMENTS DIETARY NUTRITION SUPPLEMENTS DIETARY NUTRITION SUPPLEMENTS Ins/Outs: 04/28 0701 - 04/29 0700 In: 720 [P.O.:240] Out: 200 [Urine:200] Physical Exam Gen: NAD and A&O x 3 ENT: Normocephalic, EOMI Resp: unlabored breathing CV: RRR MSK: LLE amputation stump well healed, incision c/d/i RLE with malodorous heel ulcer, no current drainage Grossly wiggles toes and moves ankle Sensation intact distally RECENT LABS: Recent Labs Component Name 04/29/2333704/28/2331804/27/23 0729 WBC 11.4* 12.3* 13.8* HGB 7.4* 7.4* 7.7* HCT 25.1* 24.6* 25.7* MCV 86.9 84.5 86.8 Recent Labs Component Name 04/29/23 03304/28/2331804/27/23 0729 NA 142 143 144 CL 109* 107 107 CO2 31* 31* 33* BUN 13 13 12 CREATININE 1.45* 1.39* 1.18* CALCIUM 8.0* 7.8* 7.8* MAGNESIUM 1.9 1.8 1.5* PHOS 3.6 3.2 3.0 Recent Labs Component Name 04/29/23 03304/28/2331804/27/23 0729 04/26/23 0629 12/02/22195412/02/22195408/21/22 0847 PROT - - - 5.4* - 6.0 - ALB 1.3* 1.2* 1.2* 1.3* - 0.8* - TBILI - - - 0.3 - 1.9* - AST - - - 78* - 47* 5 ALT - - - 43 - 38 11 ALKPHOS - - - 203* - 313* 87 - = values in this interval not displayed. Recent Labs Component Name 04/26/23 0629 INR 1.3 PTT 29.8 RECENT IMAGING: XR foot 04/26: posterior calc osteomyelitis MRI Foot, ankle, tib/fib: myositis of proximal tibia posterior compartments, calc osteomyelitis, abscess at lateral aspect of foot, diffuse myositis of foot and ankle ASSESSMENT: Gay Canales is a 32 year old female s/p L AKA now with RLE diabetic heel ulcer, calcosteomyelitis, and diffuse myositis ABIs: 1.26 PLAN: - Abx per medicine/ID - Continue dry dressings - Patient will benefit from amputation. However, patient refusing amputation despite explaining risks of ongoing untreated infection and possible development of sepsis, multiorgan failure, and potential . Patient will need ongoing discussion about surgical treatment. Recommend involving appropriate teams to help with discussions. Recommend 6 weeks of IV abx or longer if indicated by ID - Patient can follow up with Dr. Desai if she desires surgical intervention. She can call [phone] to make an appointment. - Rest of care per primary team, please call with any questions or concerns Patient will be staffed with attending, Dr. Desai. Note to be updated with any changes. Curry Campos MD Vascular Surgery Associated attestation - Shirley Desai MD - 04/29/2023 2:14 PM CDT I have seen and examined the patient with the resident and I agree with the findings and plan of care as documented by the resident. Date of Service: 04/29/2023 Shirley Desai MD * Golden Vaz RN - 04/29/2023 7:50 AM CDT [employer] notified of potential of patient going home on home antibiotics. [facility] ([place]) contacted to review patient for acceptance for home abx delivery. CM will continue to follow and assist with discharge needs. Golden Vaz RN [phone] * Felipe Bishop Jr., PharmD - 04/29/2023 7:32 AM CDT ACTIVE CONSULTS TO PHARMACY/DISEASE STATE MONITORING Pharmacy Consult: Vancomycin ASSESSMENT/PLAN Indication: documented diabetic ulcer w/ Osteomyelitis of R calcaneal tuberosity with Goal Level: AUC 400-600 >>transferred from [facility] on dapto, ceftriaxone, metronidazole (admit there 04/15) -->vascular wanted BKA but pt refused at that time >>hx left AKA in Dec 2022 ID consulted/following: Yes Assessment: ?? Day of treatment: 4 ?? End of treatment date: to be determined ?? Current dosing regimen: Previous dosing 1500 mg, Q12 hr --->has since been held (last dose 04/27) ?? Renal assessment: considered difficult to accurately assess at this time as patient has underlying condition that may impact CrCl calculation (e.g. immobility/para vs. quadriplegia, low body weight, amputation(s) > 10% BSA, etc). ??? MRSA positive: Yes, hx of MRSA; more recently wound cx Strep B ??? See chart below Recent Labs Component Name 04/29/23 0338 04/28/23 0319 04/27/23201804/27/23 0729 12/08/22 1256 12/07/22 0534 12/05/22 1006 VANCORNDM 25.6 - - - 16.8 18.5 19.6 VANCTROUGH - 34.6* - - - - - VANCOPEAK - - 46.6* 42.0* - - - ?? Due to above alterations in patient specific kinetics and renal assessment patient previously has required less frequent dosing of Q24-36 h dosing ??? Currently unable to rely on kinetics but can help guide dosing based on vancomycin clearance trends . o 2 lvl kinetics from 04/28 suggest Vd = 72 and ke = 0.0425 (t1/2 = 16h) o 2 lvl kinetics across 04/29 show ke=0.0125 (t 1/2 = 55) which indicate poor drug clearance and worsening renal function Plan ??? Dosing: o Will continue serial dosing but will hold off on ordering additional dose at this time until nextlevel check. o Current kinetics above suggest random vanco lvl will be 15-20 mcg/ml in 24 hr, however with decline seen in renal function over last 24 hr may not be accurate and possible level will stil be > 20 mcg/ml o Once renal stabilizes likely can restart a dosing scheme of 1500 mg Q24 hr to target at AUC 500s ??? Monitoring o Will order a vancomycin random level on 04/30 at 0400 and adjust regimen if indicated. o Continue to monitor patient???s renal function and cultures as needed. Felipe Bishop Jr., PharmD 04/29/2023 7:32 AM [facility] Vancomycin Guideline SUBJECTIVE/OBJECTIVE Gay Canales is a 32 year old female. The primary encounter diagnosis was Diabetic ulcer of left heel associated with type 2 diabetes mellitus, unspecified ulcer stage (CMS/HCC). Diagnoses of Chronic diastolic congestive heart failure (CMS/HCC), 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, unspecified ulcer stage (CMS/HCC), Left foot infection, and 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, with necrosis of bone (CMS/HCC) were also pertinent to this visit. Height: 5' 7 (170.2 cm) Wt 140 kg (308 lb 9.6 oz) Body mass index is 48.33 kg/m??. Recent Labs Component Name 04/29/23 0338 04/28/23 0319 04/27/23 0729 04/26/23 0629 CREATININE 1.45* 1.39* 1.18* 1.22* BUN 13 13 12 13 WBC 11.4* 12.3* 13.8* 15.5* IO last 3 completed shifts In: 1070 (7.6 mL/kg) [P.O.:590; Enteral:480] Out: 200 (1.4 mL/kg) [Urine:200 (0 mL/kg/hr)] Net: 870 Weight: 140 kg Dialysis Orders (72h ago, onward) None Radiocontrast within 72 hours The 3 most recent administrations since 04/25/2023 are shown below each listed medication. Other Order Route Dose Action Date gadobutrol (Gadavist) injection Intravenous 10 mL $ Given - Contrast 04/28/2023 Vancomycin Administrations from [facility] (last 72 hours) Date/Time Action Medication Dose Rate 04/28/23 0607 Held [per supervisor international reservations A d/t trough >24] vancomycin (Vancocin) 1,500 mg in 500 mL NaCl IVPB Premix 0 mL/hr 04/27/23 1710 $ New Bag/Syringe vancomycin (Vancocin) 1,500 mg in 500 mL NaCl IVPB Premix 1,500 mg 333.33 mL/hr 04/27/23 0554 $ New Bag/Syringe vancomycin (Vancocin) 1,500 mg in 500 mL NaCl IVPB Premix 1,500 mg 333.33 mL/hr 04/26/23 1725 $ New Bag/Syringe vancomycin (Vancocin) 2,500 mg in 550 mL IVPB 2,500 mg 220 mL/hr * Radha Mccollum RN - 04/28/2023 2:44 PM CDT Problem: Fall Risk Goal: Fall risk and fall related injury risk are minimized (interventions related to the fall risk can be found in the flowsheet documentation) Outcome: Progressing * Gonzalo Rivas MD - 04/28/2023 11:10 AM CDT [facility] INTERNAL MEDICINE PROGRESS NOTE Patient: Gay Canales Sex: female Age: [age] year old Date of : 1990 Date of Admission: 04/26/2023 Date: 04/28/2023 LOS: 2 ASSESSMENT & PLAN Gay Canales is a 32 year old female with a past medical history of DM2, HTN, HFpEF, left AKA () that presents 04/26 as OSH transfer for right diabetic foot ulcer. Right diabetic foot ulcer Right calcaneum osteomyelitis - Per chart review, admitted 04/15 at OSH for diabetic foot ulcer - OSH culture positive for strep agalactiae PLAN: - Continue daptomycin and flagyl for 6 weeks total - ID consulted, appreciate recs > vancomycin, ceftriaxone, flagyl, (daptomycin discontinued for elevated CK) - Vascular surgery consulted > follow NORMA, likely completed 04/28 which will help determine debridement vs amputation > continue abx as above - Nathaniel and Glucerna nutritional supplements - follow blood cultures 04/27, no growth to date ?? Diabetes Mellitus, Type 2 - accuchecks TIDAC qhs, SSI - blood glucose well controlled ?? Hypertension HFpEF - Per chart review, proBNP elevated at OSH. PLAN: - Amlodipine 10mg daily, Carvedilol 12.5mg BID - Losartan 25mg daily - Lasix 40mg PO daily - If unable to titrate off O2, consider increasing lasix dose for volume overload ?? Daily Checklist VTE PPX [] SCD [x] SQ Heparin [] SQ Lovenox [] Therapeutic Anticoagulation Stress Ulcer PPX [x] None [] Famotidine [] PPI Fluids Electrolytes Nutrition [x] None [] IV maintenance fluids [] IV colloid infusions K~4.0 Mg~2.0 Phos~3.0 DIET DIABETIC CONSIST CARB DIETARY NUTRITION SUPPLEMENTS DIETARY NUTRITION SUPPLEMENTS DIETARY NUTRITION SUPPLEMENTS LDA External Urinary device PICC R median cubital vein Activity Level: Activity as tolerated Consults IP CONSULT TO VASCULAR SURGERY IP CONSULT TO INFECTIOUS DISEASES IP CONSULT TO NUTRITIONAL SERV Disposition Medical Floor (Inpatient) Code Status LIMITED RESUSCITATION-PRIOR AND AFTER ARREST SUBJECTIVE Interval History: No acute events overnight. Pt has no new complaints. States she does not eat breakfast usually. Currently pending ABIs and additional recommendations from vascular surgery once those studies are complete. Continue to monitor today with new antibiotic regimen per heme/onc. Hospital Course: Gay Canales is a 32y/o F with PMH of DM2, HTN, HFpEF, left AKA () that presents 04/26 asOSH transfer for right diabetic foot ulcer. Endorses cough when she lays flat, episode of loose watery stool x1, right leg swelling. Denies pain in right leg. Denies fever/chill, CP, SOB, abd pain, n/v. ?? Per chart review, patient was admitted 04/15 at OSH for right diabetic foot ulcer, culture positive for strep agalactiae, evaluated by surgery that recommended a right BKA but declined. Would like to get debridement and 2nd opinion at [facility]. Started on daptomycin and flagyl, ID recommended 6 weeks due to osteomyelitis of right calcaneum. OBJECTIVE Vital Signs: Vitals: 04/27/23 0450 04/27/23 0837 04/27/23 1700 04/28/23 1130 BP: 160/93 163/84 139/73 149/87 Pulse: 102 94 88 86 Resp: 24 Temp: 98.3 ??F (36.8 ??C) 98.6 ??F (37 ??C) 98.5 ??F (36.9 ??C) 98.5 ??F (36.9 ??C) SpO2: 92% 95% 92% 95% Weight: Height: Temp Min: 98.3 ??F (36.8 ??C) Max: 98.7 ??F (37.1 ??C), Pulse Min: 86 Max: 102, Resp Min: 16 Max: 24, BP Min: 139/73 Max: 168/98 Intake & Output: In: 400 [P.O.:400] Out: - Physical Exam: General: Alert and oriented to person, place, time and situation, no acute distress Neck: No JVD or cartoid bruit. Trachea midline. Heart: RRR, Normal S1 and S2. No murmurs appreciated. Chest: Normal breath sounds, no wheezes or rhonchi Abdomen: Soft, non-tender, non-distended, bowel sounds present Extremities: Left AKA. Right heel ulcer, foul smelling with purulent drainage. Unable to lift leg off bed Neuro: No focal deficits noted Intake/Output Summary (Last 24 hours) at 04/28/2023 1345 Last data filed at 04/28/2023 1246 Gross per 24 hour Intake 830 ml Output 200 ml Net 630 ml Current Medications: Scheduled: ??? 0.9% NaCl 3 mL Intracatheter q8h ??? acetaminophen 1,000 mg Oral TID ??? amLODIPine 10 mg Oral QDAY ??? carvedilol 12.5 mg Oral BID WC ??? cefTRIAXone 2 g Intravenous q24h ??? furosemide 40 mg Oral QDAY ??? gadobutrol Intravenous Contrast - Once ??? heparin 7,500 Units Subcutaneous q8h ??? insulin aspart 0-6 Units Subcutaneous q4h ??? lactobacillus 1 packet Oral TID ??? losartan 25 mg Oral QDAY ??? metroNIDAZOLE 500 mg Intravenous q8h ??? nystatin Topical TID ??? vancomycin (VANCOCIN) IV dose per pharmacy Does not apply DIRECTED Continuous: PRN: ??? SALINE LOCK, INSERT AND MAINTAIN AND 0.9% NaCl AND 0.9% NaCl ??? dextrose IV for hypoglycemia OR dextrose IV for hypoglycemia ??? glucagon ??? glucose (Diabetic Use) ??? glucose (Diabetic Use) gel ??? glucose chew tab ??? oxyCODONE (immediate release) OR oxyCODONE (immediate release) Significant Lab Results: Reviewed in [facility] Microbiology: Blood cultures pending Respiratory panel pending OSH cultures: Strep agalactiae Imaging & Studies: Reviewed in [facility] MRI R foot pending. The above assessment and plan will be discussed with the attending. This note is not final until attested by attending physician. Gonzalo Rivas MD Internal Medicine Resident [facility] 04/28/2023 1:45 PM Associated attestation - Sameer Navarro MD - 04/28/2023 7:53 PM CDT I have seen and examined the patient with the resident, and I agree with the findings and plan of care as documented by the resident. Care plan discussed with RN. I spent 30 minutes reviewing the oldmedical records, doing history, physical exam, communicating with RN, communicating with and counseling the patient. Will follow up on ID and Vascular surgery input. Follow up MRI, and NORMA with toe pressures 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 (CMS/HCC) (POA: Yes) with right calcaneal osteomyelitis CHF (congestive heart failure) (CMS/HCC) (POA: Yes) S/P AKA (above knee amputation) unilateral, left (CMS/HCC) (POA: Yes) Anemia : Multifactorial from chronic inflammation, infection and recent acute blood loss from GI bleed. Date of Service: 04/28/2023 Sameer Navarro MD * Golden Vaz RN - 04/28/2023 10:48 AM CDT Case Management Initial Assessment Anticipated Discharge Date: 05/05/23 Transportation at Discharge: Medicaid Provider Anticipated level of care at discharge: Home Health Care, Shelter - Skilled Facility Anticipated level of care provider: None Prior to admission level of care: Home Prior to admit provider: None Plans: Discharge needs identified. See progress notes for details. Case Management to follow for discharge planning. Comments: Patient prefers to go home when discharged, current plan is pending medical interventionsand PT/OT recommendations. CM will continue to monitor and assist with discharge planning. Lives with: Mother Physical Limitations: None Requires Assistance With: Mobility Preferred Pharmacy: [facility] [phone] [facility] [place] [id number] [facility] [place] [address] Advance Directive: No Advance Directive Information Given: Refused Information Would you like assistance on completing and executing or revising an Advance Directive?: No READMISSION RISK SCORE is 17 at 10:48 AM 04/28/2023. Met with patient Family Support (name and phone): Extended Emergency Contact Information Primary Emergency Contact: Silvia Resendiz Mobile Relation: Mother Signals Officer needed? No Secondary Emergency Contact: GAYE NUNEZ Mobile Relation: Sister Signals Officer needed? 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 No Patient/Family provided with list of resources? Unknown Preferred Provider / High Quality Network List given?: Unknown Reason for provider choice: Unknown Equipment at Home: Wheelchair-Standard Plaster Maker Referral: No Will continue to follow. For any questions or needs please contact: [employer] Name/Phone number: Golden Vaz RN * Felipe Bishop Jr., PharmD - 04/28/2023 10:06 AM CDT ACTIVE CONSULTS TO PHARMACY/DISEASE STATE MONITORING Pharmacy Consult: Vancomycin ASSESSMENT/PLAN Indication: documented diabetic ulcer w/ Osteomyelitis of R calcaneal tuberosity with Goal Level: AUC 400-600 >>transferred from [facility] on dapto, ceftriaxone, metronidazole (admit there 04/15) -->vascular wanted BKA but pt refused at that time >>hx left AKA in Dec 2022 ID consulted/following: Yes Assessment: ?? Day of treatment: 3 ?? End of treatment date: to be determined ?? Current dosing regimen: 1500 mg, Q12 hr ?? Renal assessment: considered difficult to accurately assess at this time as patient has underlying condition that may impact CrCl calculation (e.g. immobility/para vs. quadriplegia, low body weight, amputation(s) > 10% BSA, etc). ??? MRSA positive: Yes, hx of MRSA; more recently wound cx Strep B ??? See chart below Recent Labs Component Name 04/28/23 0319 04/27/23201804/27/23 0729 12/08/22 1256 12/07/22 0534 12/05/22 1006 12/04/22 0358 VANCORNDM - - - 16.8 18.5 19.6 18.8 VANCTROUGH 34.6* - - - - - - VANCOPEAK - 46.6* 42.0* - - - - ??? Using pharmacokinetic calculations, calculated AUC = 700+ mg-hr/L and is supratherapeutic to goal . Due to above alterations in expected patient specific kinetics and renal assessment patient previously has required less frequent dosing of Q24-36 h dosing ??? Calculated kinetics suggest Vd = 72 and ke = 0.425 (t1/2 = 16h) Plan ??? Dosing: o Will continue serial dosing but will hold off on ordering additional dose at this time until nextlevel check. o Anticipate lvl next AM should be between 10-15 mcg/ml and likely can restart a dosing scheme of 1500 mg Q24 hr to target at AUC 485 if renal function remains somewhat stable. ??? Monitoring o Will order a vancomycin random level on 04/29 at 0400 and adjust regimen if indicated. o Continue to monitor patient???s renal function and cultures as needed. Felipe Bishop Jr., PharmD 04/28/2023 10:06 AM [facility] Vancomycin Guideline SUBJECTIVE/OBJECTIVE Gay Canales is a 32 year old female. The primary encounter diagnosis was Diabetic ulcer of left heel associated with type 2 diabetes mellitus, unspecified ulcer stage (CMS/HCC). Diagnoses of Chronic diastolic congestive heart failure (CMS/HCC), 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, unspecified ulcer stage (CMS/HCC), Left foot infection, and 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, with necrosis of bone (CMS/HCC) were also pertinent to this visit. Height: 5' 7 (170.2 cm) Wt 140 kg (308 lb 9.6 oz) Body mass index is 48.33 kg/m??. Recent Labs Component Name 04/28/23 0319 04/27/23 0729 04/26/23 0629 12/12/22 0144 CREATININE 1.39* 1.18* 1.22* 1.12* BUN 13 12 13 19 WBC 12.3* 13.8* 15.5* 12.9* IO last 3 completed shifts In: 400 (2.9 mL/kg) [P.O.:400] Out: - (0 mL/kg) Net: 400 Weight: 140 kg Dialysis Orders (72h ago, onward) None Radiocontrast within 72 hours The 3 most recent administrations since 04/25/2023 are shown below each listed medication. Other Order Route Dose Action Date gadobutrol (Gadavist) injection Intravenous 10 mL $ Given - Contrast 04/28/2023 Vancomycin Administrations from [facility] (last 72 hours) Date/Time Action Medication Dose Rate 04/28/23 0607 Held [per supervisor international reservations A d/t trough >24] vancomycin (Vancocin) 1,500 mg in 500 mL NaCl IVPB Premix 0 mL/hr 04/27/23 1710 $ New Bag/Syringe vancomycin (Vancocin) 1,500 mg in 500 mL NaCl IVPB Premix 1,500 mg 333.33 mL/hr 04/27/23 0554 $ New Bag/Syringe vancomycin (Vancocin) 1,500 mg in 500 mL NaCl IVPB Premix 1,500 mg 333.33 mL/hr 04/26/23 1725 $ New Bag/Syringe vancomycin (Vancocin) 2,500 mg in 550 mL IVPB 2,500 mg 220 mL/hr * Gonzalo Rivas MD - 04/27/2023 1:13 PM CDT Family Notification Documentation Contact made: 04/27/2023 1:13 PM Person(s) contacted: MotherSilvia Method of communication: Phone Duration of discussion: 10 minutes Summary of discussion Updated mother on pt's hospital course and plan. Discussed with her we are still evaluating her foot infection and following recommendations from ID and vascular surgery regarding potential procedures in addition to current antibiotics. Mother understands and agrees with plan. All questions addressed. Gonzalo Rivas MD Internal Medicine, PGY-1 04/27/2023 1:15 PM * Gonzalo Rivas MD - 04/27/2023 10:24 AM CDT [facility] INTERNAL MEDICINE PROGRESS NOTE Patient: Gay Canales Sex: female Age: [age] year old Date of : 1990 Date of Admission: 04/26/2023 Date: 04/27/2023 LOS: 1 ASSESSMENT & PLAN Gay Canales is a 32 year old female with a past medical history of DM2, HTN, HFpEF, left AKA () that presents 04/26 as OSH transfer for right diabetic foot ulcer. Right diabetic foot ulcer Right calcaneum osteomyelitis - Per chart review, admitted 04/15 at OSH for diabetic foot ulcer - OSH culture positive for strep agalactiae PLAN: - Continue daptomycin and flagyl for 6 weeks total - ID consulted, appreciate recs > discontinue daptomycin for elevated CK > start vancomycin and ceftriaxone, continue flagyl > repeat blood cultures > ESR, CRP, CK, MRI R foot, Hepc and HIV screening > Respiratory panel for cough, UA for dark urine - Vascular surgery consulted > follow NORMA, likely completed 04/28 which will help determine debridement vs amputation > continue abx as above - start Nathaniel and glucerna ?? Diabetes Mellitus, Type 2 - accuchecks TIDAC qhs, SSI ?? Hypertension HFpEF - Per chart review, proBNP elevated at OSH. PLAN: - Amlodipine 10mg daily, Carvedilol 12.5mg BID - Losartan 25mg daily - Lasix 40mg PO daily - If unable to titrate off O2, consider increasing lasix dose for volume overload ?? Daily Checklist VTE PPX [] SCD [x] SQ Heparin [] SQ Lovenox [] Therapeutic Anticoagulation Stress Ulcer PPX [x] None [] Famotidine [] PPI Fluids Electrolytes Nutrition [x] None [] IV maintenance fluids [] IV colloid infusions K~4.0 Mg~2.0 Phos~3.0 DIET DIABETIC CONSIST CARB DIETARY NUTRITION SUPPLEMENTS DIETARY NUTRITION SUPPLEMENTS DIETARY NUTRITION SUPPLEMENTS LDA External Urinary device PICC R median cubital vein Activity Level: Activity as tolerated Consults IP CONSULT TO VASCULAR SURGERY IP CONSULT TO INFECTIOUS DISEASES Disposition Medical Floor (Inpatient) Code Status LIMITED RESUSCITATION-PRIOR AND AFTER ARREST SUBJECTIVE Interval History: No acute events overnight. Pt has no new complaints. States she does not eat breakfast usually. Currently pending ABIs and additional recommendations from vascular surgery once those studies are complete. Continue to monitor today with new antibiotic regimen per heme/onc. Hospital Course: Gay Canales is a 32y/o F with PMH of DM2, HTN, HFpEF, left AKA () that presents 04/26 asOSH transfer for right diabetic foot ulcer. Endorses cough when she lays flat, episode of loose watery stool x1, right leg swelling. Denies pain in right leg. Denies fever/chill, CP, SOB, abd pain, n/v. ?? Per chart review, patient was admitted 04/15 at OSH for right diabetic foot ulcer, culture positive for strep agalactiae, evaluated by surgery that recommended a right BKA but declined. Would like to get debridement and 2nd opinion at [facility]. Started on daptomycin and flagyl, ID recommended 6 weeks due to osteomyelitis of right calcaneum. OBJECTIVE Vital Signs: Vitals: 04/26/23 2022 04/27/23 0048 04/27/23 0450 04/27/23 0837 BP: 168/98 159/95 160/93 163/84 Pulse: 97 102 102 94 Resp: Temp: 98.3 ??F (36.8 ??C) 98.3 ??F (36.8 ??C) 98.3 ??F (36.8 ??C) 98.6 ??F (37 ??C) SpO2: 92% 92% 92% 95% Weight: Height: Temp Min: 98.3 ??F (36.8 ??C) Max: 98.7 ??F (37.1 ??C), Pulse Min: 91 Max: 102, Resp Min: 16 Max: 24, BP Min: 144/79 Max: 168/98 Intake & Output: In: 50 [P.O.:50] Out: 300 [Urine:300] Physical Exam: General: Alert and oriented to person, place, time and situation, no acute distress Neck: No JVD or cartoid bruit. Trachea midline. Heart: RRR, Normal S1 and S2. No murmurs appreciated. Chest: Normal breath sounds, no wheezes or rhonchi Abdomen: Soft, non-tender, non-distended, bowel sounds present Extremities: Left AKA. Right heel ulcer, foul smelling with purulent drainage. Unable to lift leg off bed Neuro: No focal deficits noted Intake/Output Summary (Last 24 hours) at 04/27/2023 1247 Last data filed at 04/26/20232021 Gross per 24 hour Intake 50 ml Output -- Net 50 ml Current Medications: Scheduled: ??? 0.9% NaCl 3 mL Intracatheter q8h ??? acetaminophen 1,000 mg Oral TID ??? amLODIPine 10 mg Oral QDAY ??? carvedilol 12.5 mg Oral BID WC ??? cefTRIAXone 2 g Intravenous q24h ??? furosemide 40 mg Oral QDAY ??? heparin 7,500 Units Subcutaneous q8h ??? insulin aspart 0-6 Units Subcutaneous q4h ??? lactobacillus 1 packet Oral TID ??? losartan 25 mg Oral QDAY ??? metroNIDAZOLE 500 mg Intravenous q8h ??? nystatin Topical TID ??? vancomycin 1,500 mg Intravenous q12h ??? vancomycin (VANCOCIN) IV dose per pharmacy Does not apply DIRECTED Continuous: PRN: ??? SALINE LOCK, INSERT AND MAINTAIN AND 0.9% NaCl AND 0.9% NaCl ??? dextrose IV for hypoglycemia OR dextrose IV for hypoglycemia ??? glucagon ??? glucose (Diabetic Use) ??? glucose (Diabetic Use) gel ??? glucose chew tab ??? oxyCODONE (immediate release) OR oxyCODONE (immediate release) Significant Lab Results: Reviewed in [facility] Microbiology: Blood cultures pending Respiratory panel pending OSH cultures: Strep agalactiae Imaging & Studies: Reviewed in [facility] MRI R foot pending. The above assessment and plan will be discussed with the attending. This note is not final until attested by attending physician. Gonzalo Rivas MD Internal Medicine Resident [facility] 04/27/2023 12:47 PM Associated attestation - Sameer Navarro MD - 04/27/2023 1:25 PM CDT I have seen and examined the patient with the resident, and I agree with the findings and plan of care as documented by the resident. Care plan discussed with RN. I spent 30 minutes reviewing the oldmedical records, doing history, physical exam, communicating with RN, communicating with and counseling the patient. ID and Vascular surgery input appreciated 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 (CMS/HCC) (POA: Yes) CHF (congestive heart failure) (CMS/HCC) (POA: Yes) S/P AKA (above knee amputation) unilateral, left (CMS/HCC) (POA: Yes) Anemia : Multifactorial from chronic inflammation, infection and recent acute blood loss from GI bleed. Date of Service: 04/27/2023 Sameer Navarro MD * Moise Fuentesjuancarlossarina - 04/27/2023 7:34 AM CDT [facility] INTERNAL MEDICINE PROGRESS NOTE Patient: Gay Canales Sex: female Age: [age] year old Date of : 1990 Date of Admission: 04/26/2023 Date: 04/27/2023 LOS: 1 SUBJECTIVE Interval History: Patient had about 2-3 episodes of diarrhea throughout the night. She states that her Araujo catheterhas been removed and she has not been experiencing any dysuria, hematuria, or urinary frequency. She denies any fevers, chills, chest pain, SOB. Her foot has been bandaged up and has not been causingher any discomfort. Hospital Course: Patient is a 32 y/o female with a past medical history of T2DM, HTN, HFpEF, left AKA who was transferred from [facility] on 04/26 for evaluation and second opinion of right diabetic foot ulcer.She was originally admitted to [facility] on 04/15 for dyspnea and non-productive cough thought to be due to exacerbation of her HPpEF. At that time, she was found to have a right diabetic footulcer that had been present for 4-5 months. Wound cultures grew GBS and imaging showed the evidenceof soft tissue gas and R calcaneal osteomyelitis. Patient was placed on daptomycin, Rocephin, and Flagyl, but daptomycin was discontinued due to elevated CK levels. At [facility], the patient was placed on daptomycin and Flagyl. The patient has been followed by vascularsurgery and ID. X-ray of the R foot confirms soft-tissue gas and osteomyelitis of the R calcaneal tuberosity. Still awaiting additional lab work and MRI of the R foot. Daptomycin discontinued and patient placed on vancomycin and ceftriaxone, along with Flagyl due to elevated CK levels, per ID recommendations. Previous to the 04/15 admission, patient had been following with wound management weekly, who told her the wound was improving. Wound cultures grew GBS and MRSA on 03/03, so patient underwent an office debridement and was placed on doxycycline, gentamicin, and ketoconazole. Augmentin and topical mupirocin were added to the antibiotic regimen by wound management on 03/17 and 03/24, respectively. OBJECTIVE Vital Signs: Vitals: 04/26/23 0836 04/26/23 2022 04/27/23 0048 04/27/23 0450 BP: 144/79 168/98 159/95 160/93 Pulse: 91 97 102 102 Resp: 24 22 24 Temp: 98.6 ??F (37 ??C) 98.3 ??F (36.8 ??C) 98.3 ??F (36.8 ??C) 98.3 ??F (36.8 ??C) SpO2: 93% 92% 92% 92% Weight: Height: Temp Min: 98.3 ??F (36.8 ??C) Max: 98.7 ??F (37.1 ??C), Pulse Min: 91 Max: 102, Resp Min: 16 Max: 24, BP Min: 144/79 Max: 168/98 Intake & Output: In: 50 [P.O.:50] Out: 300 [Urine:300] Physical Exam: Physical Exam Constitutional: General: She is not in acute distress. Cardiovascular: Rate and Rhythm: Normal rate and regular rhythm. Heart sounds: No murmur heard. No friction rub. No gallop. Pulmonary: Effort: Pulmonary effort is normal. No respiratory distress. Breath sounds: Normal breath sounds. No wheezing, rhonchi or rales. Musculoskeletal: Right lower leg: Edema present. Left lower leg: Edema (Left AKA with pitting edema throughout the rest of the leg) present. Comments: Nonpitting edema of the right foot, ulcer covered by a dry bandage Skin: General: Skin is warm. Comments: PICC line in right upper arm without erythema or drainage Current Medications: Scheduled: ??? 0.9% NaCl 3 mL Intracatheter q8h ??? acetaminophen 1,000 mg Oral TID ??? amLODIPine 10 mg Oral QDAY ??? carvedilol 12.5 mg Oral BID WC ??? cefTRIAXone 2 g Intravenous q24h ??? furosemide 40 mg Oral QDAY ??? insulin aspart 0-6 Units Subcutaneous q4h ??? lactobacillus 1 packet Oral TID ??? losartan 25 mg Oral QDAY ??? metroNIDAZOLE 500 mg Intravenous q8h ??? nystatin Topical TID ??? vancomycin 1,500 mg Intravenous q12h ??? vancomycin (VANCOCIN) IV dose per pharmacy Does not apply DIRECTED Continuous: PRN: ??? SALINE LOCK, INSERT AND MAINTAIN AND 0.9% NaCl AND 0.9% NaCl ??? dextrose IV for hypoglycemia OR dextrose IV for hypoglycemia ??? glucagon ??? glucose (Diabetic Use) ??? glucose (Diabetic Use) gel ??? glucose chew tab ??? oxyCODONE (immediate release) OR oxyCODONE (immediate release) Significant Lab Results: CBC: Recent Labs Component Name 04/26/23 0629 12/12/22 0144 12/11/22 0020 WBC 15.5* 12.9* 12.5* HGB 7.7* 7.5* 8.4* HCT 25.9* 25.4* 30.2* MCV 86.0 77.2* 80.7 Coagulation Panel: Recent Labs Component Name 04/26/23 06 PT 16.3* INR 1.3 PTT 29.8 CMP: Recent Labs Component Name 04/26/23 0629 12/12/22 0144 12/11/22 0020 12/03/22 0242 12/02/22195408/22/227 08/21/22 0847 NA 142 145 144 - 139 - - POTASSIUM 3.6 3.9 3.6 - 3.9 - 2.9* CL 104 109* 109* - 106 - - CO2 31* 27 25 - 17* - 28 BUN 13 19 19 - 27* - 7 CREATININE 1.22* 1.12* 1.38* - 2.95* - 1.62* CALCIUM 7.7* 7.4* 8.0* - 7.6* - 8.2* ALB 1.3* - - - 0.8* - - ALT 43 - - - 38 - 11 AST 78* - - - 47* - 5 - = values in this interval not displayed. Recent Labs Component Name 04/26/23 0629 12/04/22 1605 12/04/22357 MAGNESIUM 1.4* 2.3 2.3 Recent Labs Component Name 04/26/23 0629 12/04/22 0358 12/03/22241 PHOS 2.9 5.1 4.4 Hepatic Panel: Recent Labs Component Name 04/26/23 0629 12/02/22195408/21/22 0847 AST 78* 47* 5 ALT 43 38 11 ALKPHOS 203* 313* 87 TBILI 0.3 1.9* - ALB 1.3* 0.8* - ABG: Recent Labs Component Name 12/03/22 1856 PH 7.28* Amylase/Lipase: Invalid input(s): AMYL, LIPA Thyroid Studies: No results for input(s): TSH, T4 in the last 37277 hours. Cardiac Enzymes: Recent Labs Component Name 12/02/221954 TROPONINI 0.023 Lipid Panel: Recent Labs Component Name 12/02/222032 LDLCALC 74 HDL 8* UA: No components found for: UA Microbiology: Microbiology Results (Displays last 21 days for this encounter ONLY) Procedure Component Value - Date/Time CULTURE BLOOD [[id number]] Collected: 04/27/23 0729 Lab Status: No result Specimen: Blood Peripheral CULTURE BLOOD [[id number]] Lab Status: No result Specimen: Blood Peripheral Imaging & Studies: XR FOOT RIGHT 2VW Result Date: 04/26/2023 PROCEDURE: XR FOOT RIGHT 2VW, DATE/TIME OF EXAM: 04/26/2023 1:47 PM, LOCATION [facility] INDICATION: E11.621: Diabetic ulcer of right heel [...] soft tissues in this area compatible with gas.There is cortical erosion and fragmentation at the plantar-posterior aspect of calcaneal tuberositycompatible with osteomyelitis. Diffuse soft tissue swelling. Report dictated by Golden Kiser DO (vice president marketing & development) 04/26/2023 2:42 PM. I, Xander De Guzman MD have personally reviewed and interpreted this examination/study. > Interpreting Provider: Xander De Guzman MD on 04/26/2023 5:41 PM XR CHEST 1VW PORTABLE Result Date: 04/26/2023 PROCEDURE: XR CHEST 1VW PORTABLE, DATE/TIME OF EXAM: 04/26/2023 8:51 AM, LOCATION [facility] INDICATION: E11.621: Diabetic ulcer of left heel associated with type 2 diabetes mellitus, unspecified ulcer stage (CMS/HCC) L97.429: Diabetic ulcer of left heel associated with type 2 diabetes mellitus, unspecified ulcer stage ([facility]/HCC) ADDITIONAL CLINICAL INFORMATION: Ordering Provider Reason For Exam: PICC placement COMPARISON: Chest x-ray from 12/02/2022 FINDINGS/IMPRESSION: Intervalplacement of right Upper extremity PICC line terminating in the right atrium. There is redemonstration of cardiomegaly. There are prominent and intervally increased interstitial opacities, right greater than left likely representing pulmonary edema in setting of cardiomegaly. There is probable trace volume pleural effusions bilaterally. There is no pneumothorax identified. Report dictated by Golden Kiser DO(vice president marketing & development). I, Xander eD Guzman MD have personally reviewed and interpreted this examination/study. > Interpreting Provider: Xander De Guzman MD on 04/26/2023 5:15 PM Results for orders placed or performed during the hospital encounter of 04/26/23 EKG 12-LEAD Result Value Ref Range Ventricular Rate 88 BPM Atrial Rate 88 BPM P-R Interval 158 ms QRS Duration ms 80 ms Q-T Interval ms 374 ms QTC Calculation (Bezet) 452 ms Calculated P Procious 44 degrees Calculated R Procious -2 degrees Calculated T Procious 17 degrees Interpretation EKG NORMAL SINUS RHYTHM NONSPECIFIC T WAVE ABNORMALITY ABNORMAL ECG WHEN COMPARED WITH ECG OF 03-DEC-2022 03:00, NO SIGNIFICANT CHANGE WAS FOUND ASSESSMENT & PLAN CHF (congestive heart failure) (CMS/HCC) (POA: Yes) S/P AKA (above knee amputation) unilateral, left (CMS/HCC) (POA: Yes) 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 (CMS/HCC) (POA: Yes) Gay Canales is a 32 year old female with PMH of T2DM, HTN, HFpEF, left AKA in 12/2022 who presented to [facility] from [facility] on 04/26 for second opinion and evaluation of a right foot diabeticulcer. Plan: #Right foot diabetic ulcer complicated by R calcaneal tuberosity osteomyelitis - Wound culture done at [facility] showed positive strep agalactiae - WBC is 13.8, improving from 15.5 on 04/26 - Hemoglobin A1C collected, pending results - HIV screening test and HCV antibody tests ordered per ID recommendation, both are non-reactive - C-reactive protein ordered per ID, level is 2.4 PLAN: - ID consulted, appreciate recommendations - Daptomycin discontinued due to elevated CK levels, CK today at 1624 - Will begin ceftriaxone 2 g IV and vancomycin 1.5 g IV along with continuing Flagyl 500 mg IV, perID - Blood cultures ordered, awaiting results - ESR ordered, awaiting results - Ordered MRI ankle, foot, fibula/tibia, awaiting results - Vascular surgery consulted, appreciate recommendations - X-ray of right foot ordered, showed soft tissue gas and right calcaneal osteomyelitis - ABIs with toe pressure ordered to assess arterial flow in R lower extremity, awaiting results - Results of ABIs will help guide debridement vs. amputation of right foot - Keep wound wrapped with dry dressing - Will supplement patient with Nathaniel and Glucerna Chronic Problems: #T2DM - hemoglobin A1C results pending - Continue sliding scale insulin - Regular accuchecks three times a day #HFpEF #Hypertension - Continue at-home amlodipine 10 mg daily and at-home Coreg 12.5 mg BID - Continue at-home losartan 25 mg daily - Continue Lasix 40 mg PO daily Code: DNR/DNI Diet: Diabetic diet Electrolytes: Replete PRN PPx: SCD Access: Peripheral IV Dispo: Pending discussion with vascular surgery The above assessment and plan will be discussed with the attending. This note is not final until attested by attending physician. Juan Fuentes MS3 [facility] 04/27/2023 7:34 AM * Curry Campos MD - 04/27/2023 5:40 AM CDT Images from the original note were not included. VASCULAR SURGERY PROGRESS NOTE ADMIT: 04/26/2023 4:41 AM LOS: 1 day 04/27/2023 HISTORY: Gay Canales is a 32 year old female with PMHx s/f T2DM (on home insulin) s/p L AKA (12/05/[address] Rodgers) who presented initially for R heel ulcer. This has been ongoing for 2-3 months. Wound care wereapplying ointments , but the wound has persisted. This was reportedly associated with intermittent drainage. She denies fevers, chills, nausea, or vomiting. ?? She uses a wheelchair at home and does not ambulate on RLE because it feels heavy . She has not worn a prosthesis to her LLE. Nonetheless, she is adamant about not wanting another amputation since she has already dealt with one before. ?? Denies alcohol use, smoking, and IVDU. SUBJECTIVE: NAEON. No fevers or chills. Minimal LE pain. Anticoagulation/Antiplatelet: none Antibiotics: vanc and flagyl OBJECTIVE: Blood pressure 160/93, pulse 102, temperature 98.3 ??F (36.8 ??C), temperature source Oral, resp. rate 24, height 1.702 m (5' 7 ), weight (!) 140 kg (308 lb 9.6 oz), last menstrual period 08/08/2022,SpO2 92 %, not currently . Temp: [98.3 ??F (36.8 ??C)-98.6 ??F (37 ??C)] 98.3 ??F (36.8 ??C) Pulse: [91-102] 102 Resp: [22-24] 24 BP: (144-168)/(79-98) 160/93 DIET: DIET DIABETIC CONSIST CARB DIETARY NUTRITION SUPPLEMENTS Ins/Outs: 04/26 0701 - 04/27 0700 In: 50 [P.O.:50] Out: 300 [Urine:300] Physical Exam Gen: NAD and A&O x 3 ENT: Normocephalic, EOMI Resp: unlabored breathing CV: RRR MSK: LLE amputation stump well healed, incision c/d/i RLE with malodorous heel ulcer, no current drainage Doppler signals good DP and weak PT Difficulty palpating femoral and popliteal arteries due to habitus Grossly wiggles toes and moves ankle Sensation intact distally RECENT LABS: Recent Labs Component Name 04/26/23 0629 12/12/22 0144 12/11/22 0020 WBC 15.5* 12.9* 12.5* HGB 7.7* 7.5* 8.4* HCT 25.9* 25.4* 30.2* MCV 86.0 77.2* 80.7 Recent Labs Component Name 04/26/23 0629 12/12/22 0144 12/11/22 0020 12/05/22 1006 12/04/22 1605 12/04/22 0358 12/03/22 1707 12/03/22 0242 NA 142 145 144 - 141 137 - 134* CL 104 109* 109* - 109* 108* - 106 CO2 31* 27 25 - 16* 17* - 18* BUN 13 19 19 - 36* 35* - 30* CREATININE 1.22* 1.12* 1.38* - 3.31* 3.24* - 2.91* CALCIUM 7.7* 7.4* 8.0* - 7.3* 7.3* - 7.3* MAGNESIUM 1.4* - - - 2.3 2.3 - 2.2 PHOS 2.9 - - - - 5.1 - 4.4 - = values in this interval not displayed. Recent Labs Component Name 04/26/23 0629 12/02/22195408/21/22 0847 PROT 5.4* 6.0 - ALB 1.3* 0.8* - TBILI 0.3 1.9* - AST 78* 47* 5 ALT 43 38 11 ALKPHOS 203* 313* 87 Recent Labs Component Name 04/26/23 0629 INR 1.3 PTT 29.8 RECENT IMAGING: XR foot 04/26: posterior calc osteomyelitis ASSESSMENT: Gay Canales is a 32 year old female s/p L AKA now with RLE diabetic heel ulcer and calc osteomyelitis PLAN: - ABIs with toe pressure - Abx per medicine/ID - Continue dry dressings in the meantime - Patient will likely benefit from surgical intervention, debridement vs more likely amputation pending vascular labs. Will need to have further discussions with patient as well due to patient preference and persistent refusal of amputation - Rest of care per primary team, please call with any questions or concerns Patient will be staffed with attending, Dr. Desai. Note to be updated with any changes. Curry Campos MD Vascular Surgery Associated attestation - Shirley Desai MD - 04/27/2023 7:44 AM CDT I have seen and examined the patient with the resident and I agree with the findings and plan of care as documented by the resident. Date of Service: 04/27/2023 Shirley Desai MD * Yamini Garnica, PharmD - 04/26/2023 3:00 PM CDT ACTIVE CONSULTS TO PHARMACY/DISEASE STATE [...] patient populations. REF: https://www.idsociety.org/practice-guideline/vancomycin/ ASSESSMENT/PLAN Indication: documented Osteomyelitis of foot/heel with Goal Level: AUC 400-600 ID consulted/following: Yes Assessment Renal assessment: considered stable at this time as patient has Estimated Creatinine Clearance: 99 mL/min (A) (by C-G formula based on SCr of 1.22 mg/dL (H)). Historical dosing data that influences current dosing decisions: No History of MRSA colonization or positive cultures: No Plan Regimen: Loading dose: 2500 mg Maintenance dose: 1500 mg, Dosing interval: Q12 hr This regimen calculates to provide estimated AUC of 495 mg-h/L Monitoring Will order a vancomycin peak level after maintenance dose on 04/27/23 at 0730 and trough level priorto maintenance dose on 04/27/23 at 1500 and adjust regimen if indicated. Continue to monitor patient???s renal function and cultures as needed. Yamini Garnica PharmD 04/26/2023 2:56 PM [facility] Vancomycin Guideline SUBJECTIVE/OBJECTIVE Gay Canales is a 32 year old female. The primary encounter diagnosis was Diabetic ulcer of left heel associated with type 2 diabetes mellitus, unspecified ulcer stage (CMS/HCC). Diagnoses of Chronic diastolic congestive heart failure (CMS/HCC), 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, unspecified ulcer stage (CMS/HCC), and Left foot infection were also pertinent to this visit. Height: 5' 7 (170.2 cm) Wt 140 kg (308 lb 9.6 oz) Body mass index is 48.33 kg/m??. Recent Labs Component Name 04/26/23 0629 12/12/22 0144 12/11/22 0020 12/10/22 0036 CREATININE 1.22* 1.12* 1.38* 1.46* BUN 13 19 19 20 WBC 15.5* 12.9* 12.5* 15.1* Dialysis Orders (72h ago, onward) None Vancomycin Administrations from MAR (last 72 hours) None Recent Labs Component Name 12/08/22 1256 12/07/22 0534 12/05/22 1006 VANCORNDM 16.8 18.5 19.6 * Akosua Bedolla RN - 04/26/2023 5:00 AM CDT Pt alert, orientated to unit. Denies pains. Admitting team notified of pt arrival. Orders placed. No furthers needs at this time. documented in this encounter H&P Notes * Debo Gordon MD - 04/26/2023 5:20 AM CDT [facility] INTERNAL MEDICINE HISTORY & PHYSICAL NOTE Date of Admission: 04/26/2023 Patient: Gay Canales Sex: female Age: [age] year old Date of : 1990 Code Status: Full Code SUBJECTIVE Chief Complaint: No chief complaint on file. History of Present Illness: Gay Canales is a 32y/o F with PMH of DM2, HTN, HFpEF, left AKA () that presents 04/26 asOSH transfer for right diabetic foot ulcer. Endorses cough when she lays flat, episode of loose watery stool x1, right leg swelling. Denies pain in right leg. Denies fever/chill, CP, SOB, abd pain, n/v. Per chart review, patient was admitted 04/15 at OSH for right diabetic foot ulcer, culture positive for strep agalactiae, evaluated by surgery that recommended a right BKA but declined. Would like to get debridement and 2nd opinion at [facility]. Started on daptomycin and flagyl, ID recommended 6 weeks due to osteomyelitis of right calcaneum. Past Medical History: Past Medical History: Diagnosis Date ??? Type 2 diabetes mellitus without complications (CMS/HCC) Past Surgical History: Past Surgical History: Procedure Laterality Date ??? LEG AMPUTATION ABOVE KNEE Left 12/05/2022 Left; AMPUTATION ABOVE LEFT KNEE ??? Leg Amputation, Below Knee Left 12/02/2022 Left; LEFT ANKLE DISARTICULATION LEVEL 2 @ 2220 Family History: Family History Problem Relation Name Age of Onset ??? Diabetes - Type 2 Father ??? Diabetes - Type 2 Paternal Grandmother Social History: Social History Socioeconomic History ??? Marital status: Single Spouse name: Not on file ??? Number of children: Not on file ??? Years of education: Not on file ??? Highest education level: Not on file Occupational History ??? Not on file Tobacco Use ??? Smoking status: Never ??? Smokeless tobacco: Never Vaping Use ??? Vaping Use: Never used Substance and Sexual Activity ??? Alcohol use: Never ??? Drug use: Never ??? Sexual activity: Not on file Other Topics Concern ??? Not on file Social History Narrative ??? Not on file Social Determinants of Health Financial Resource Strain: Low Risk (12/03/2022) Overall Financial Resource Strain (CARDIA) ??? Difficulty of Paying Living Expenses: Not hard at all Food Insecurity: No Food Insecurity (12/03/2022) Hunger Vital Sign ??? Worried About Running Out of Food in the Last Year: Never true ??? Ran Out of Food in the Last Year: Never true Transportation Needs: No Transportation Needs (12/03/2022) PRAPARE - Transportation ??? Lack of Transportation (Medical): No ??? Lack of Transportation (Non-Medical): No Stress: No Stress Concern Present (12/03/2022) [employer] [place] [employer] - Occupational Stress Questionnaire ??? Feeling of Stress : Not at all Housing Stability: Low Risk (12/03/2022) Housing Stability Vital Sign ??? Unable to Pay for Housing in the Last Year: No ??? Number of Places Lived in the Last Year: 1 ??? Unstable Housing in the Last Year: No Allergies: No Known Allergies Home Medications: No current facility-administered medications on file prior to encounter. Current Outpatient Medications on File Prior to Encounter Medication Sig Dispense Refill ??? acetaminophen (Tylenol) 500 MG tablet Take 1 (one) tablet by mouth every 6 hours Maximum allowable Acetaminophen amount = 4 Grams (4000 mg) / 24 hours. ??? Alcohol Swabs (Alcohol Prep) 70 % USE ONE SWAB TO CLEAN SKIN FOUR TIMES DAILY BEFORE TESTING 100 Each PRN ??? amLODIPine (Norvasc) 10 MG tablet Take 1 (one) tablet by mouth once daily ??? amoxicillin-clavulanate (Augmentin) 875-125 MG tablet Take 1 (one) tablet by mouth 2 times daily ??? blood glucose (PinnattaTouch Verio) test strip USE ONE STRIP TO [...] (one) tablet by mouth daily with breakfast ??? furosemide (Lasix) 40 MG tablet Take 1 (one) tablet by mouth 2 times daily ??? insulin glargine (Lantus/Semglee) 100 units/ml injection Inject 10 (ten) Units subcutaneously at bedtime ??? insulin lispro (HumaLOG) 100 UNIT/ML vial Inject 5 (five) Units subcutaneously 3 times daily with meals ??? Lancets (BugBusterTOUCH DELICA PLUS 33G EXTRA FINE LANCET) USE ONE LANCET TO PRICK FINGER FOUR TIMES DAILY FOR BLOOD GLUCOSE TESTING 100 Each PRN ??? nystatin (Mycostatin) 678148 UNIT/GM powder Apply to affected area 3 times daily ??? potassium chloride ER (Klor-Con M) 20 MEQ tablet Take 1 (one) tablet by mouth daily with breakfast Current Medications: Scheduled: ??? 0.9% NaCl 3 mL Intracatheter q8h ??? amLODIPine 10 mg Oral QDAY ??? carvedilol 12.5 mg Oral BID WC ??? furosemide 40 mg Oral QDAY ??? losartan 25 mg Oral QDAY Continuous: PRN: ??? SALINE LOCK, INSERT AND MAINTAIN AND 0.9% NaCl AND 0.9% NaCl Review of Systems: (positives are bolded) CONSTITUTIONAL: [...] hematuria, kidney stone MSK: joint stiffness, swelling, pain; right leg swelling NEURO: headaches, syncope, seizures, gait problems, tremor, balance, memory SKIN: rash, itching, bruising, lumps or bumps PSYCH: depressed mood, anxiety, suicidal or homicidal ideation ENDO: cold or heat intolerance, polyphagia, polydipsia, polyuria HEME: anemia, bleeding disorder, abnormal bruising, blood clots OBJECTIVE Vital Signs: Temp: [98.7 ??F (37.1 ??C)] 98.7 ??F (37.1 ??C) Pulse: [97] 97 Resp: [16] 16 BP: (152)/(89) 152/89 Physical Exam: General: alert and oriented, no acute distress, pleasant and cooperative, 4L NC Head: normocephalic, atraumatic Eyes: conjunctivae clear, extraocular muscles intact Mouth/Throat: oropharynx clear with no lesions, moist mucous membranes Neck: no jugular venous distension, supple CV: regular rate and rhythm, no murmurs appreciated Resp: clear to auscultation bilaterally, no wheezes or crackles heard Abd: soft, nontender, nondistended, normoactive bowel sounds Extremities: Left AKA, well healed; Right heel wound, foul smelling, with bandage in place; Unable to lift right leg off of bed Skin: skin color and turgor normal Neuro: Unable to move right leg off of bed; Moving upper extremities well Lab Results: CBC: Recent Labs Component Name 12/12/22 0144 12/11/220 12/10/22 003 WBC 12.9* 12.5* 15.1* HGB 7.5* 8.4* 8.0* HCT 25.4* 30.2* 26.9* MCV 77.2* 80.7 77.1* Coagulation Panel: No results for input(s): PT, INR, PTT in the last 32637 hours. BMP: Recent Labs Component Name 12/12/22 0144 12/11/22 0020 12/10/22 003 NA 145 144 147* POTASSIUM 3.9 3.6 3.6 CL 109* 109* 112* CO2 27 25 26 BUN 19 19 20 CREATININE 1.12* 1.38* 1.46* CALCIUM 7.4* 8.0* 7.9* Recent Labs Component Name 12/04/22 1605 12/04/22 0358 12/03/22 0242 MAGNESIUM 2.3 2.3 2.2 Recent Labs Component Name 12/04/22 0358 12/03/22 0242 08/25/22 0315 PHOS 5.1 4.4 4.0 Hepatic Panel: Recent Labs Component Name 12/02/22195408/21/22 0847 AST 47* 5 ALT 38 11 ALKPHOS 313* 87 TBILI 1.9* - ALB 0.8* - ABG: Recent Labs Component Name 12/03/22 1856 PH 7.28* Amylase/Lipase: Invalid input(s): AMYL, LIPA Thyroid Studies: No results for input(s): TSH, T4 in the last 52081 hours. Cardiac Enzymes: Recent Labs Component Name 12/02/221954 TROPONINI 0.023 Lipid Panel: Recent Labs Component Name 12/02/222032 LDLCALC 74 HDL 8* UA: None Microbiology: Reviewed Imaging & Studies: Reviewed ASSESSMENT & PLAN Gay Canales is a 32y/o F with PMH of DM2, HTN, HFpEF, left AKA () that presents 04/26 asOSH transfer for right diabetic foot ulcer. #Right diabetic foot ulcer #Right calcaneum osteomyelitis - Per chart review, admitted 04/15 at OSH for diabetic foot ulcer - OSH culture positive for strep agalactiae PLAN: - Continue daptomycin and flagyl for 6 weeks total - ID consult in AM - Vascular surgery consult in AM #Araujo in place - Araujo placed at OSH, unclear indication. Unable to see OSH notes and no documented reason found in paper chart. - Per patient, was placed due to having to urinate frequently on lasix. PLAN: - Remove araujo - Bladder scans - Consider external catheter if frequently urinating. If signs of retention consider replacing araujo. #DM2 - accuchecks TIDAC qhs, SSI #HTN #HFpEF - Per chart review, proBNP elevated at OSH. PLAN: - Amlodipine 10mg daily, Carvedilol 12.5mg BID - Losartan 25mg daily - Lasix 40mg PO daily - If unable to titrate off O2, consider increasing lasix dose for volume overload Code: DNR/DNI Diet: NPO pending vascular surgery eval Electrolytes: Replete PRN PPx: SCD Access: PIV Dispo: Admit to Medicine. The above assessment and plan will be discussed with the attending. This note is not final until attested by attending physician. Debo Gordon MD Internal Medicine PGY-1 [facility] 04/26/2023 5:21 AM Associated attestation - Sameer Navarro MD - 04/26/2023 4:35 PM CDT I have seen and examined the patient with the resident, and I agree with the findings and plan of care as documented by the resident. Care plan discussed with RN. I spent 30 minutes reviewing the oldmedical records, doing history, physical exam, communicating with RN, communicating with and counseling the patient. ID and Vascular surgery input appreciated CHF (congestive heart failure) (CMS/HCC) (POA: Yes) S/P AKA (above knee amputation) unilateral, left (CMS/HCC) (POA: Yes) 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 (CMS/HCC) (POA: Yes) Date of Service: 04/26/2023 Sameer Navarro MD documented in this encounter Consult Notes * Gregorio Dominguez MD - 04/26/2023 12:14 PM CDT Infectious Disease attending note: Patient was seen and examined with the ID Fellow, Dr. Garcia.Please see his note for further details. I confirm and agree with his history, exam, assessment andplan with the following exceptions/additions: Please see my note for further details: Gay Canales is a 32 year old female HPI: Patient presents with hx of PAD and right diabetic foot ulcer on the heel X 2 months despite topical Rx. Had right foot heel ulcer debrided and topical treatment prescribed 03/03/23 when culture grew MRSA and Strep group B; more debridement and started Augmentin 03/17/23No F/C/S/GI symptoms. Denies pain in the right foot and states that she has feeling in the right foot. She is hoping to not have another amputation. Upon hospitalization for dyspnea and hypoxia on 04/15/23, the right heel ulcerwas noted to be worse. Plain xray of the right foot there showed calcaneal osteomyelitis and oft tissue ulcer with air in the tissues. Vascular surgery consult reports: RLE with malodorous heel ulcer, no current drainage Doppler signals good DP and weak PT; Difficulty palpating femoral and popliteal arteries due to habitus. ROS: see HPI, patient had cough and [facility]ness [facility] breath [facility] possibly related to HFpEF condition - this issue has resolved although is still on supplemental O2 here at [facility]; otherwise noncontributory. During 11/2022 admission for the left foot diabetic foot infection and necrotizing fasciitis, grew Schaalia turicensis ( a type of Actinomyces) from blood, grew pansensitive Proteus mirabilis and Strep group B from body fluid prior to the AKA in early 12/2022. Denies muscle pains. PMHX: DM2, HTN, HFpEF, left AKA (), HTN Soc Hx - no smoking, IDU or alcohol Current Facility-Administered Medications Medication ??? 0.9% NaCl injection 3 mL And ??? 0.9% NaCl injection 1-10 mL ??? acetaminophen (Tylenol) tablet 1,000 mg ??? amLODIPine (Norvasc) tablet 10 mg ??? carvedilol (Coreg) tablet 12.5 mg ??? DAPTOmycin (Cubicin) 500 mg in 0.9% NaCl IV 60 mL IVPB ??? dextrose 10 % IV bolus Or ??? dextrose 10 % IV bolus ??? furosemide (Lasix) tablet 40 mg ??? glucagon (Glucagen) injection 1 mg ??? glucose (Diabetic Use) (Dex4 Glucose) oral liquid ??? glucose (Diabetic Use) oral gel ??? glucose chew tablet 4 tablet ??? insulin lispro (HumaLOG;ADMelog) 100 UNIT/ML pen 0-6 Units ??? losartan (Cozaar) tablet 25 mg ??? metroNIDAZOLE (Flagyl) 500 mg in 100 mL IVPB ??? oxyCODONE (immediate release) (Roxicodone) tablet 5 mg Or ??? oxyCODONE (immediate release) (Roxicodone) tablet 10 mg PE: BP 144/79 Pulse 91 Temp 98.6 ??F (37 ??C) Resp 16 Ht 1.702 m (5' 7 ) Wt (!) 140 kg (308 lb 9.6 oz) SpO2 93% Alert and oriented X 3, NAD, obese HEENT: M and T: no oral lesions, good dentition Lungs: Clear to auscultation Heart: RR without murmur or gallop Abdomen: normal bowel sounds, no hepatosplenomegaly, nontender, obese Right foot: heel ulcer with overlying eschar, scaley skin surrounding, bad odor, has soft tissue swelling, no crepitance, no erythema. No pulses palpable. Sensation to light touch present. L AKA and stump is healed Recent Labs Component Name 04/26/23 0629 12/12/22 0144 12/11/22 0020 WBC 15.5* 12.9* 12.5* HGB 7.7* 7.5* 8.4* Recent Labs Component Name 04/26/23 0629 12/12/22 0144 12/11/22 0020 NA 142 145 144 CL 104 109* 109* CO2 31* 27 25 BUN 13 19 19 CREATININE 1.22* 1.12* 1.38* Recent Labs Component Name 04/26/23 0629 12/02/22195408/21/22 0847 AST 78* 47* 5 ALT 43 38 11 ALKPHOS 203* 313* 87 no cultures sent so far at [facility] 04/26/23 CXR: enlarged heart, bilaterally symmetric infiltrates 04/26/23 xray of the right foot: defect in the calcaneous c/w ruby erosions underlying the soft tissue ulcer CK at OSH on 04/25/23: Was high at 1085 Assessment: 1. Right heel ulcer in diabetic patient with PVD, calcaneal osteomyelitis and infected wound. Hx of MRSA and Strep group B on cultures in March and April. Has leukocytosis. 2. DM, mild CKD 3. Poor nutritional status with low albumin = 1.3 - So will have wound healing issues and poor hostresponse to infection 4. Hx of left AKA 5. Mild elevation ALT - R/O underlying hepatitis or passive congestion from the HFpEF 6. Pulmonary infiltrates and need for supplemental O2 - consider underlying respiratory infection or heart failure 7. Elevated CK likely due to daptomycin Recommendations/Plan: 1. Please send blood cultures, ESR and CRP, HCV and hepatitis panel and HIV serologies/screens, syphilis serology 2. Will need MRI of the right foot, ankle and tib/fib 3. Will need at least I and D of the right heel ucer and good wound care, further evaluation by vascular surgery is pending 4. Send UA 5. With hx of cough with dyspnea, please send respiratory pathogen panel including SARSCoV2 PCR. 6. The heel ulcer needs at least I and D (vascular surgery is seeing patient); Will need to sed tissue for Gram's stain, routine and anaerobic cultures , fungal culture and AFB cultures and smears., tissue for histopath 7. D/C daptomycin - has elevated CK - follow the CK levels 8. Start vancomycin, ceftriaxone and Flagyl 9. MRI of the right foot/ankle and lower leg * Rio Garcia MD - 04/26/2023 11:57 AM CDTAssociated Order(s): IP CONSULT TO INFECTIOUS DISEASES [facility] Infectious Diseases Consultation Patient Name: Gay Canales 1990 Room: [facility]/ Date of Admission: 04/26/2023 Date of Service: 04/26/2023 Primary Care Physician: No primary care provider on file. Attending Physician: Sameer Navarro MD Reason for Infectious Disease Consultation Right foot osteomyelitis History of Present Illness HPI: Gay Canales is a 32 year old female with a past medical history significant for essential hypertension, diabetes mellitus, obesity, depression, PTSD, past left leg necrotizing infection s/p AKA Patient presented to [facility] on 04/26/2023 as a transfer from OSH for surgical evaluation in the setting of right foot osteomyelitis. Patient initially presented to OSH on 04/15/2023 with a chief complaint of dyspnea and hypoxia on home monitor. She reported cough, no sputum production. She denied fever, chills, diaphoresis. As far as wound, she had been going weekly to wound care clinic and was told that wound was getting better, she did not notice pain, swelling, erythema, discharge or malodor from right foot. At OSH she was worked up for hypoxia and it was thought to be due to volume overload in the setting of heart failure. She was also noted right foot wound concerning for infection. Right foot x-ray showed soft tissue gas and findings concerning for acute osteomyelitis. Right foot wound cultures growing GBS. ID was consulted for right diabetic foot infection with calcaneal osteomyelitis. She was started on daptomycin, ceftriaxone, metronidazole. Vascular surgery consulted there and re commended amputation but patient refused and transferred to [facility] for [facility] opinion. Labs upon transfer to [facility] remarkable for leukocytosis. She was continued on Vascular surgery consulted. ID consulted. Of note, she has a history of left necrotizing fasciitis s/p left AKA. She had been following regularly with wound care clinic. As per chart review, right leg wounds had been going on for at least 4-5 months. She followed up with wound care nurse and performed office debridement on 03/03/2023, samples sent for culture and grew GBS and MRSA. She was then prescribed doxycyline and topical gentamicin and ketoconazole. She followed up with wound care clinic again on 03/17/2023 and was added Augmentin.Seen again on 03/24/2023 and was prescribed topical mupirocin. Medical History Past Medical History: Diagnosis Date [...] of Health Financial Resource Strain: Low Risk (12/03/2022) Overall Financial Resource Strain (CARDIA) ??? Difficulty of Paying Living Expenses: Not hard at all Food Insecurity: No Food Insecurity (12/03/2022) Hunger Vital Sign ??? Worried About Running Out of Food in the Last Year: Never true ??? Ran Out of Food in the Last Year: Never true Transportation Needs: No Transportation Needs (12/03/2022) PRAPARE - Transportation ??? Lack of Transportation (Medical): No ??? Lack of Transportation (Non-Medical): No Stress: No Stress Concern Present (12/03/2022) [employer] [place] [employer] - Occupational Stress Questionnaire ??? Feeling of Stress : Not at all Housing Stability: Low Risk (12/03/2022) Housing Stability Vital Sign ??? Unable to Pay for Housing in the Last Year: No ??? Number of Places Lived in the Last Year: 1 ??? Unstable Housing in the Last Year: No Immunizations: Immunization History Administered Date(s) Administered ??? [...] Systems Review of Systems Constitutional: Positive for malaise/fatigue. Negative for chills, diaphoresis and fever. HENT: Negative for sore throat. Respiratory: Positive for cough. Negative for sputum production and shortness of breath. Cardiovascular: Positive for leg swelling. Negative for chest pain. Gastrointestinal: Negative for abdominal pain, constipation, diarrhea, nausea and vomiting. Genitourinary: Negative for dysuria. Musculoskeletal: Negative for back pain and myalgias. Neurological: Negative for headaches. Allergies No Known Allergies Antimicrobial History Current Antibiotics Daptomycin 04/26 - present Metronidazole 04/26 - present Prior Antibiotics at OSH Vancomycin 04/15 Daptomycin 04/15 - 04/24 Cefepime 04/15 - 04/16 Ceftriaxone 04/16 - 04/25 Metronidazole 04/16 - 04/25 Doxycycline 04/25 Home Medications Prior to Admission medications Medication Sig Start Date End Date Taking? Authorizing Provider acetaminophen (Tylenol) 500 MG tablet Take 1 (one) tablet by mouth every 6 hours Maximum allowable Acetaminophen amount = 4 Grams (4000 mg) / 24 hours. 12/12/22 Rosi Menard APRN-LEEROY Alcohol Swabs (Alcohol Prep) 70 % USE ONE SWAB TO CLEAN SKIN FOUR TIMES DAILY BEFORE TESTING 12/12/22Amanda Georges MD amLODIPine (Norvasc) 10 MG tablet Take 1 (one) tablet by mouth once daily 12/12/22 Rosi Menard V. OB SCRUB TECH-DRUG ABUSE PROGRAM COORDINATOR amoxicillin-clavulanate (Augmentin) 875-125 MG tablet Take 1 (one) tablet by mouth 2 times daily 12/12/22 Rosi Menard APRN-DRUG ABUSE PROGRAM COORDINATOR blood glucose (OneTouch Verio) test strip USE [...] daily with morning and evening meal 12/12/22 Rosi Menard V., OB SCRUB TECH-DRUG ABUSE PROGRAM COORDINATOR FeroSul 325 (65 Fe) MG tablet Take 1 (one) tablet by mouth daily with breakfast 08/08/22 Rebel Garcia MD furosemide (Lasix) 40 MG tablet Take 1 (one) tablet by mouth 2 times daily 12/12/22 Rosi Menard V., OB SCRUB TECH-LEEROY insulin glargine (Lantus/Semglee) 100 units/ml injection Inject 10 (ten) Units subcutaneously at bedtime Rebel Garcia MD insulin lispro (HumaLOG) 100 UNIT/ML vial Inject 5 (five) Units subcutaneously 3 times daily with meals 08/13/22 Rebel Garcia MD Lancets (ONETOUCH DELICA PLUS 33G EXTRA FINE LANCET) USE ONE LANCET TO PRICK FINGER FOUR TIMES DAILY FOR BLOOD GLUCOSE TESTING 12/12/22 Amanda Georges MD nystatin (Mycostatin) 403022 UNIT/GM powder Apply to affected area 3 times daily 12/12/22 Rosi Menard APRN-LEEROY potassium chloride ER (Klor-Con M) 20 MEQ tablet Take 1 (one) tablet by mouth daily with breakfast 12/12/22 Rosi Menard APRN-LEEROY Inpatient Medications ??? 0.9% NaCl 3 mL Intracatheter q8h ??? acetaminophen 1,000 mg Oral TID ??? amLODIPine 10 mg Oral QDAY ??? carvedilol 12.5 mg Oral BID WC ??? DAPTOmycin 500 mg Intravenous q24h ??? furosemide 40 mg Oral QDAY ??? insulin aspart 0-6 Units Subcutaneous q4h ??? losartan 25 mg Oral QDAY ??? metroNIDAZOLE 500 mg Intravenous q8h Objective Vitals BP 144/79 Pulse 91 Temp 98.6 ??F (37 ??C) Resp 16 Ht 1.702 m (5' 7 ) Wt (!) 140 kg (308 lb 9.6 oz) SpO2 93% Temp (24hrs), Av.7 ??F (37.1 ??C), Min:98.6 ??F (37 ??C), Max:98.7 ??F (37.1 ??C) Physical Exam Physical Exam Vitals and nursing note reviewed. Constitutional: General: She is not in acute distress. Appearance: She is morbidly obese. She is ill-appearing. She is not toxic- appearing or diaphoretic. Interventions: Nasal cannula in place. HENT: Head: Normocephalic and atraumatic. Cardiovascular: Rate and Rhythm: Normal rate and regular rhythm. Pulses: Normal pulses. Heart sounds: Normal heart sounds. No murmur heard. No friction rub. No gallop. Pulmonary: Effort: Pulmonary effort is normal. No respiratory distress. Breath sounds: Normal breath sounds. No wheezing, rhonchi or rales. Abdominal: General: Bowel sounds are normal. There is no distension. Palpations: Abdomen is soft. Tenderness: There is no abdominal tenderness. Musculoskeletal: Right lower leg: Edema present. Left Lower Extremity: Left leg is amputated above knee. Feet: Right foot: Skin integrity: Ulcer, skin breakdown, erythema and dry skin present. Comments: Right foot calcaneal ulcer with overlying eschar, some scant discharge, noted malodor Neurological: Mental Status: She is alert. Lines: right median cubital vein PICC Lab Review CBC: Recent Labs Component Name 04/26/23 0629 12/12/22 0144 12/11/22 0020 WBC 15.5* 12.9* 12.5* RBC 3.01* 3.29* 3.74* HGB 7.7* 7.5* 8.4* HCT 25.9* 25.4* 30.2* MCV 86.0 77.2* 80.7 BMP: Recent Labs Component Name 04/26/23 0629 12/12/22 0144 12/11/22 0020 12/03/22 0242 12/02/221954 NA 142 145 144 - 139 CL 104 109* 109* - 106 CO2 31* 27 25 - 17* BUN 13 19 19 - 27* CREATININE 1.22* 1.12* 1.38* - 2.95* ALB 1.3* - - - 0.8* PROT 5.4* - - - 6.0 - = values in this interval not displayed. estimated creatinine clearance is 99 mL/min (A) (by C-G formula based on SCr of 1.22 mg/dL (H)). LFTs: Recent Labs Component Name 04/26/23 0629 12/02/22195408/25/225 08/24/22 1404 08/24/22 0725 08/22/22 0317 08/21/22 0847 ALKPHOS 203* 313* - - - - 87 ALT 43 38 - - - - 11 AST 78* 47* - - - - 5 ALBUMIN - - 2.0* 2.1* 1.7* - 2.2* - = values in this interval not displayed. Coagulation: Recent Labs Component Name 04/26/23 0629 PT 16.3* INR 1.3 PTT 29.8 Microbiology, Imaging and other diagnostic tests MICROBIOLOGY: Blood culture: 04/15 No growth (OSH) Right heel ulcer superficial wound: 04/15 GBS (OSH) Other serologies: 04/15 negative COVID-19/influenza/RSV PCR 04/16 MRSA DNA PCR not detected (OSH) HISTOPATHOLOGY: None at this admission IMAGING & PROCEDURES: I have independently reviewed all pertinent images. Reports in chart. Assessment and Recommendations Right calcaneal osteomyelitis Right diabetic foot infection Non-healing ulcer right foot In the setting of poorly controlled diabetes mellitus and being bed bound; also some component of vascular insufficiency She had been going to wound care clinic; debridement samples from 03/03/2023 with GBS and MRSA Had been treated with doxycycline and Augmentin as outpatient with topical ointments and periodic debridements Now with worsening infection and x-ray evidence of osteomyelitis Seen at outside hospital by vascular surgery and ID; recommendation was for amputation, she was on daptomycin, ceftriaxone, metronidazole Daptomycin was discontinued due to elevated CK but continued here Vascular surgery consulted here and ordered new imaging to determine further plan Elevated CK in the setting of daptomycin use At OSH, up to 1,000 She denies myalgias Will need to stop daptomycin and start vancomycin Mildly elevated liver enzymes Mildly elevated alkaline phosphatase and AST, normal ALT Could represent liver congestion in the setting of heart failure Work up as per primary team Diabetes mellitus Hemoglobin A1c on 04/16/2023 was 6.5 Will need good glycemic control At high risk for infectious complications and poor wound healing Past left foot necrotizing fasciitis s/p left AKA Cultures from this grew GBS and Proteus mirabilis Past Schaalia turicensis bacteremia ID consulted at that time and thought to be contaminant Allergies NKA BOBBY At OSH with creatinine on admission 2.70 Now recovered Will need close monitoring Renal Function estimated creatinine clearance is 99 mL/min (A) (by C-G formula based on SCr of 1.22mg/dL (H)). Plan/Recommendations Stop daptomycin Start vancomycin IV with goal trough 15-20 as per pharmacy protocol Start ceftriaxone 2 g IV every 24 hours Continue metronidazole 500 mg oral every 8 hours Please obtain blood cultures Please obtain ESR and CRP Please obtain repeat CK Please obtain MRI right foot Follow surgical plan If/when intervention planned, please send for all cultures including Gram stain, standard and anaerobe culture, fungal smear and culture, AFB smear and culture, and tissue for histopathology. Please obtain hepatitis C screening with HCV antibody testing with reflex to NAAT, if not done previously Please obtain HIV screening with 4th generation test, if not done previously Check CBC with auto diff and CMP weekly while on IV antibiotics Thank you for allowing us to participate in the care of this patient. We will continue to follow and monitor with you closely. Patient seen, examined, and case/plan were discussed with my attending physician, Dr. Dominguez. Case was discussed with primary team. Rio Garcia MD (PGY-4) Infectious Diseases Fellow [facility] Pager: [phone] ID Clinic Associated attestation - Gregorio Dominguez MD - 04/26/2023 3:24 PM CDT Infectious Disease attending note: Patient was seen and examined with the ID Fellow, Dr. Garcia.Please see his note for further details. I confirm and agree with his history, exam, assessment andplan. Please see my other note today for further details. * Curry Campos MD - 04/26/2023 10:56 AM CDT Images from the original note were not included. Vascular Consult Note ADMIT: 04/26/2023 4:41 AM LOS: 0 days 04/26/2023 History of Present Illness: Gay Canales is a 32 year old female with PMHx s/f T2DM (on home insulin) s/p L AKA (12/05/[address] Rodgers) who presented to the initially for R heel ulcer. This has been ongoing for 2-3 months. Wound care wereapplying ointments , but the wound has persisted. This is reportedly associated with intermittent drainage. She denies fevers, chills, nausea, or vomiting. She uses a wheelchair at home and does not ambulate on RLE because it feels heavy . She has not worn a prosthesis to her LLE. Nonetheless, she is adamant about not wanting another amputation since she has already dealt with one before. Denies alcohol use, smoking, and IVDU. Past Medical History: Past Medical History: Diagnosis Date ??? Essential (primary) hypertension ??? Heart failure (CMS/HCC) ??? Type 2 diabetes mellitus without complications (CMS/HCC) Past Surgical History: Past Surgical History: Procedure Laterality Date ??? LEG AMPUTATION ABOVE KNEE Left 12/05/2022 Left; AMPUTATION ABOVE LEFT KNEE ??? Leg Amputation, Below Knee Left 12/02/2022 Left; LEFT ANKLE DISARTICULATION LEVEL 2 @ 2220 Home Medications: Current Facility-Administered Medications Medication ??? 0.9% NaCl injection 3 mL And ??? 0.9% NaCl injection 1-10 mL ??? acetaminophen (Tylenol) tablet 1,000 mg ??? amLODIPine (Norvasc) tablet 10 mg ??? carvedilol (Coreg) tablet 12.5 mg ??? DAPTOmycin (Cubicin) 500 mg in 0.9% NaCl IV 60 mL IVPB ??? dextrose 10 % IV bolus Or ??? dextrose 10 % IV bolus ??? furosemide (Lasix) tablet 40 mg ??? glucagon (Glucagen) injection 1 mg ??? glucose (Diabetic Use) (Dex4 Glucose) oral liquid ??? glucose (Diabetic Use) oral gel ??? glucose chew tablet 4 tablet ??? insulin lispro (HumaLOG;ADMelog) 100 UNIT/ML pen 0-6 Units ??? losartan (Cozaar) tablet 25 mg ??? metroNIDAZOLE (Flagyl) 500 mg in 100 mL IVPB ??? oxyCODONE (immediate release) (Roxicodone) tablet 5 mg Or ??? oxyCODONE (immediate release) (Roxicodone) tablet 10 mg Allergies: No Known Allergies Social History: Social History Socioeconomic History ??? [...] Comment: At age 20 for 4-5 months Family History: Family History Problem Relation Name Age of Onset ??? Diabetes - Type 2 Mother ??? Hypertension Mother ??? Diabetes - Type 2 Father ??? Hypertension Father ??? Diabetes - Type 2 Paternal Grandmother ??? Hypertension Paternal Grandmother Objective: BP 144/79 Pulse 91 Temp 98.6 ??F (37 ??C) Resp 16 Ht 1.702 m (5' 7 ) Wt (!) 140 kg (308 lb 9.6 oz) SpO2 93% Physical Exam: Gen: NAD and A&O x 3 ENT: Normocephalic, EOMI Resp: unlabored breathing CV: RRR MSK: LLE amputation stump well healed, incision c/d/i RLE with malodorous heel ulcer, no current drainage Doppler signals good DP and weak PT Difficulty palpating femoral and popliteal arteries due to habitus Grossly wiggles toes and moves ankle Sensation intact distally Neuro: Moving all extremities, no focal deficits Psych: Appropriate mood and affect Labs: Recent Labs Component Name 04/26/23 0629 12/12/22 0144 12/11/22 0020 WBC 15.5* 12.9* 12.5* HGB 7.7* 7.5* 8.4* HCT 25.9* 25.4* 30.2* Recent Labs Component Name 04/26/23 0629 12/12/22 0144 12/11/22 0020 12/05/22 1006 12/04/22 1605 12/04/22 0358 NA 142 145 144 - 141 137 CL 104 109* 109* - 109* 108* CO2 31* 27 25 - 16* 17* BUN 13 19 19 - 36* 35* CREATININE 1.22* 1.12* 1.38* - 3.31* 3.24* CALCIUM 7.7* 7.4* 8.0* - 7.3* 7.3* MAGNESIUM 1.4* - - - 2.3 2.3 - = values in this interval not displayed. Recent Labs Component Name 04/26/23 0629 12/02/225 08/21/22 0847 PROT 5.4* 6.0 - ALB 1.3* 0.8* - TBILI 0.3 1.9* - AST 78* 47* 5 ALT 43 38 11 ALKPHOS 203* 313* 87 Recent Labs Component Name 04/26/23 0629 INR 1.3 PTT 29.8 Assessment: Gay Canales is a 32 year old female s/p L AKA now with RLE diabetic heel ulcer Plan: - XR R foot - ABIs with toe pressure - Abx per medicine/ID - Continue dry dressings in the meantime - Patient will likely benefit from surgical intervention, debridement vs amputation pending imagingand vascular labs. Will need to have further discussions with patient as well due to patient preference and refusal of amputation - Rest of care per primary team, please call with any questions or concerns Patient will be staffed with attending, Dr. eDsai. Note to be updated with any changes. Curry Campos MD Vascular Surgery Associated attestation - Shirley Desai MD - 04/27/2023 7:44 AM CDT I have seen and examined the patient with the resident and I agree with the findings and plan of care as documented by the resident. Date of Service: 04/26/23 Shirley Desai MD documented in this encounter Miscellaneous Notes * Coding Query - Sameer Navarro MD - 05/01/2023 4:51 PM CDT DOCUMENTATION CLARIFICATION REQUEST Use the F2 function manley to complete the query. Click ???Sign?? to file the note. TO: Dr. Navarro FROM: BREANNE Webster, RN, CCDS Email: [email or web address] Please clarify and document your clinical opinion if the patient is being monitored/evaluated/treated for ??? BOBBY on CKD stage 2, POA ??? BOBBY, developed after admission ??? CKD (please specify stage if possible), POA ??? Other specific explanation of clinical findings ??? Unable to determine (no explanation of clinical findings) The medical record reflects the following: o Risk Factors: Antibiotics and lasix o Clinical Findings: 04/26 ID: mild CKD Latest Reference Range & Units 04/26/23 06:29 04/27/23 07:29 04/28/23 03:19 04/29/23 03:38 04/30/23 06:37 05/01/23 06:59 Creatinine 0.56 - 0.96 mg/dL 1.22 (H) 1.18 (H) 1.39 (H) 1.45 (H) 1.58 (H) 1.64 (H) eGFR >=90 mL/min/1.73 m2 61 (L) 64 (L) 52 (L) 50 (L) 45 (L) 43 (L) o Treatment: Lab monitoring PROVIDER RESPONSE (Use F2 to respond) ??? BOBBY on CKD stage 2, POA Please provide your clinical opinion and findings to support the diagnosis in the progress notes & carry it through into your discharge summary. THIS DOCUMENT IS MAINTAINED A PERMANENT PART OF THE MEDICAL RECORD. * Code Status Discussion - Dbeo Gordon MD - 04/26/2023 8:27 AM CDT [facility] INTERNAL MEDICINE CODE STATUS CHANGE DOCUMENTATION Admission Date: 04/26/2023 Patient: Gay Canales Sex: female Age: [age] year old Date of : 1990 Code Status: LIMITED RESUSCITATION-PRIOR AND AFTER ARREST Code status change: From Full to DNR/DNI Rationale of code status change: Discussed with patient, patient stating she would not want chest compressions, shocks, or medication if her heart stops. Additionally patient states she would not want intubation. This is also consistent with outside hospital documentation of patient's code status wishes. Condition of the patient: Stable Decisional capacity of the patent at the time of this decision: Decisional If this decision was made by someone other than the patient, who? Decision was made by patient Was a Family Meeting held? Who was present? No Was an Ethics Consult Placed? No If the code status change was discussed by someone other than the attending physician, please specify: Debo Gordon MD- Internal Medicine PGY-1 Debo Gordon MD Internal Medicine Resident 04/26/2023 8:27 AM documented in this encounter Plan of Treatment Upcoming Encounters Date Type Department Care Team (Late st Contact Info) Description 11/22/2024 1:30 PM CLEANER [employer]NS Office Visit [facility] - Infectious Disease [address] [place] [address], [place] [address] Kash Ha MD [address] [place] [address] documented as of this encounter Procedures Procedure Name Priority Date/Time Associated Diagnosis Comments SARS-COV-2 (COVID-19) RAPID STAT 05/09/2023 1:05 PM CDT GLUCOSE - POINT OF CARE Routine 05/09/2023 11:58 AM CDT GLUCOSE - POINT OF CARE Routine 05/09/2023 7:59 AM CDT CBC W/O DIFFERENTIAL Routine 05/09/2023 6:30 AM CDT RENAL FUNCTION PANEL Routine 05/09/2023 3:57 AM CDT MAGNESIUM BLOOD Routine 05/09/2023 3:57 AM CDT VANCOMYCIN LEVEL TROUGH Timed 05/09/2023 3:57 AM CDT GLUCOSE - POINT OF CARE Routine 05/08/2023 5:07 PM CDT GLUCOSE - POINT OF CARE Routine 05/08/2023 12:00 PM CDT VANCOMYCIN LEVEL PEAK Timed 05/08/2023 8:41 AM CDT GLUCOSE - POINT OF CARE Routine 05/08/2023 8:04 AM CDT CBC W/O DIFFERENTIAL Routine 05/08/2023 6:35 AM CDT RENAL FUNCTION PANEL Routine 05/08/2023 6:35 AM CDT MAGNESIUM BLOOD Routine 05/08/2023 6:35 AM CDT GLUCOSE - POINT OF CARE Routine 05/07/2023 4:03 PM CDT GLUCOSE - POINT OF CARE Routine 05/07/2023 12:34 PM CDT GLUCOSE - POINT OF CARE Routine 05/07/2023 8:20 AM CDT CBC W/O DIFFERENTIAL Routine 05/07/2023 6:16 AM CDT RENAL FUNCTION PANEL Routine 05/07/2023 6:16 AM CDT MAGNESIUM BLOOD Routine 05/07/2023 6:16 AM CDT GLUCOSE - POINT OF CARE Routine 05/06/2023 5:04 PM CDT GLUCOSE - POINT OF CARE Routine 05/06/2023 11:13 AM CDT GLUCOSE - POINT OF CARE Routine 05/06/2023 7:08 AM CDT CBC W/O DIFFERENTIAL Routine 05/06/2023 4:13 AM CDT RENAL FUNCTION PANEL Routine 05/06/2023 4:13 AM CDT MAGNESIUM BLOOD Routine 05/06/2023 4:13 AM CDT VANCOMYCIN LEVEL RANDOM Routine 05/06/2023 4:13 AM CDT GLUCOSE - POINT OF CARE Routine 05/05/2023 3:54 PM CDT GLUCOSE - POINT OF CARE Routine 05/05/2023 12:04 PM CDT GLUCOSE - POINT OF CARE Routine 05/05/2023 7:52 AM CDT CBC W/O DIFFERENTIAL Routine 05/05/2023 4:09 AM CDT RENAL FUNCTION PANEL Routine 05/05/2023 4:09 AM CDT MAGNESIUM BLOOD Routine 05/05/2023 4:09 AM CDT VANCOMYCIN LEVEL RANDOM Routine 05/05/2023 4:09 AM CDT GLUCOSE - POINT OF CARE Routine 05/04/2023 4:49 PM CDT GLUCOSE - POINT OF CARE Routine 05/04/2023 12:02 PM CDT GLUCOSE - POINT OF CARE Routine 05/04/2023 7:49 AM CDT CBC W/O DIFFERENTIAL Routine 05/04/2023 6:36 AM CDT RENAL FUNCTION PANEL Routine 05/04/2023 6:36 AM CDT MAGNESIUM BLOOD Routine 05/04/2023 6:36 AM CDT VANCOMYCIN LEVEL RANDOM Timed 05/04/2023 6:36 AM CDT GLUCOSE - POINT OF CARE Routine 05/03/2023 8:01 PM CDT GLUCOSE - POINT OF CARE Routine 05/03/2023 4:26 PM CDT GLUCOSE - POINT OF CARE Routine 05/03/2023 11:48 AM CDT GLUCOSE - POINT OF CARE Routine 05/03/2023 7:45 AM CDT CBC W/O DIFFERENTIAL Routine 05/03/2023 6:38 AM CDT RENAL FUNCTION PANEL Routine 05/03/2023 6:38 AM CDT MAGNESIUM BLOOD Routine 05/03/2023 6:38 AM CDT GLUCOSE - POINT OF CARE Routine 05/03/2023 4:40 AM CDT C DIFFICILE GDH AG + TOXIN A+B Routine 05/03/2023 2:38 AM CDT GLUCOSE - POINT OF CARE Routine 05/02/2023 7:59 PM CDT GLUCOSE - POINT OF CARE Routine 05/02/2023 4:26 PM CDT GLUCOSE - POINT OF CARE Routine 05/02/2023 11:40 AM CDT GLUCOSE - POINT OF CARE Routine 05/02/2023 8:13 AM CDT CBC W/O DIFFERENTIAL Routine 05/02/2023 6:57 AM CDT RENAL FUNCTION PANEL Routine 05/02/2023 6:57 AM CDT MAGNESIUM BLOOD Routine 05/02/2023 6:57 AM CDT VANCOMYCIN LEVEL RANDOM Timed 05/02/2023 6:57 AM CDT GLUCOSE - POINT OF CARE Routine 05/02/2023 4:17 AM CDT GLUCOSE - POINT OF CARE Routine 05/01/2023 8:51 PM CDT GLUCOSE - POINT OF CARE Routine 05/01/2023 5:30 PM CDT GLUCOSE - POINT OF CARE Routine 05/01/2023 11:43 AM CDT GLUCOSE - POINT OF CARE Routine 05/01/2023 8:21 AM CDT RENAL FUNCTION PANEL Routine 05/01/2023 6:59 AM CDT MAGNESIUM BLOOD Routine 05/01/2023 6:59 AM CDT CBC W/O DIFFERENTIAL Routine 05/01/2023 6:56 AM CDT VANCOMYCIN LEVEL RANDOM Routine 05/01/2023 6:56 AM CDT GLUCOSE - POINT OF CARE Routine 05/01/2023 4:10 AM CDT GLUCOSE - POINT OF CARE Routine 05/01/2023 12:22 AM CDT GLUCOSE - POINT OF CARE Routine 04/30/2023 7:51 PM CDT GLUCOSE - POINT OF CARE Routine 04/30/2023 4:41 PM CDT GLUCOSE - POINT OF CARE Routine 04/30/2023 11:42 AM CDT GLUCOSE - POINT OF CARE Routine 04/30/2023 7:35 AM CDT CBC W/O DIFFERENTIAL Routine 04/30/2023 6:37 AM CDT RENAL FUNCTION PANEL Routine 04/30/2023 6:37 AM CDT MAGNESIUM BLOOD Routine 04/30/2023 6:37 AM CDT VANCOMYCIN LEVEL RANDOM Routine 04/30/2023 6:37 AM CDT GLUCOSE - POINT OF CARE Routine 04/30/2023 4:08 AM CDT GLUCOSE - POINT OF CARE Routine 04/30/2023 12:08 AM CDT GLUCOSE - POINT OF CARE Routine 04/29/2023 8:06 PM CDT GLUCOSE - POINT OF CARE Routine 04/29/2023 4:09 PM CDT GLUCOSE - POINT OF CARE Routine 04/29/2023 12:04 PM CDT GLUCOSE - POINT OF CARE Routine 04/29/2023 8:21 AM CDT MRI TIBIA FIBULA RIGHT WWO CONT Routine 04/29/2023 7:29 AM CDT 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, unspecified ulcer stage (HCC) GLUCOSE - POINT OF CARE Routine 04/29/2023 4:42 AM CDT CBC W/O DIFFERENTIAL Routine 04/29/2023 3:38 AM CDT RENAL FUNCTION PANEL Routine 04/29/2023 3:38 AM CDT MAGNESIUM BLOOD Routine 04/29/2023 3:38 AM CDT VANCOMYCIN LEVEL RANDOM Routine 04/29/2023 3:38 AM CDT GLUCOSE - POINT OF CARE Routine 04/29/2023 12:20 AM CDT GLUCOSE - POINT OF CARE Routine 04/28/2023 8:21 PM CDT GLUCOSE - POINT OF CARE Routine 04/28/2023 5:40 PM CDT GLUCOSE - POINT OF CARE Routine 04/28/2023 12:18 PM CDT VAS ARTERIAL ANKLE ARM INDEX Routine 04/28/2023 11:16 AM CDT 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, unspecified ulcer stage (HCC) Left foot infection GLUCOSE - POINT OF CARE Routine 04/28/2023 10:38 AM CDT MRI FOOT RIGHT WWO CONTRAST Routine 04/28/2023 5:57 AM CDT 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, with necrosis of bone (HCC) MRI ANKLE RIGHT WWO CONTRAST Routine 04/28/2023 5:48 AM CDT 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, unspecified ulcer stage (HCC) CBC W/O DIFFERENTIAL Routine 04/28/2023 3:19 AM CDT RENAL FUNCTION PANEL Routine 04/28/2023 3:19 AM CDT MAGNESIUM BLOOD Routine 04/28/2023 3:19 AM CDT VANCOMYCIN LEVEL TROUGH Timed 04/28/2023 3:19 AM CDT GLUCOSE - POINT OF CARE Routine 04/28/2023 12:09 AM CDT GLUCOSE - POINT OF CARE Routine 04/27/2023 8:24 PM CDT CULTURE BLOOD Timed 04/27/2023 8:19 PM CDT ERYTHROCYTE SEDIMENTATION RATE AM Draw 04/27/2023 8:19 PM CDT VANCOMYCIN LEVEL PEAK Timed 04/27/2023 8:19 PM CDT GLUCOSE - POINT OF CARE Routine 04/27/2023 4:58 PM CDT GLUCOSE - POINT OF CARE Routine 04/27/2023 12:01 PM CDT RESPIRATORY PANEL WITH SARS-COV-2 BY PCR (STL) Routine 04/27/2023 11:48 AM CDT GLUCOSE - POINT OF CARE Routine 04/27/2023 8:36 AM CDT HEMOGLOBIN A1C Routine 04/27/2023 7:30 AM CDT HEPATITIS C AB SCREEN RFLX NAAT QUANT Routine 04/27/2023 7:29 AM CDT HIV-1 HIV-2 ANTIBODY + HIV P24 AG PANEL Routine 04/27/2023 7:29 AM CDT C-REACTIVE PROTEIN AM Draw 04/27/2023 7: 29 AM CDT CULTURE BLOOD Timed 04/27/2023 7:29 AM CDT CBC W/O DIFFERENTIAL Routine 04/27/2023 7:29 AM CDT RENAL FUNCTION PANEL Routine 04/27/2023 7:29 AM CDT MAGNESIUM BLOOD Routine 04/27/2023 7:29 AM CDT CK BLOOD Routine 04/27/2023 7:29 AM CDT VANCOMYCIN LEVEL PEAK Timed 04/27/2023 7:29 AM CDT GLUCOSE - POINT OF CARE Routine 04/27/2023 6:05 AM CDT XR CHEST 1VW PORTABLE STAT 04/27/2023 5:42 AM CDT Diabetic ulcer of left heel associated with type 2 diabetes mellitus, unspecified ulcer stage (HCC) GLUCOSE - POINT OF CARE Routine 04/27/2023 12:51 AM CDT GLUCOSE - POINT OF CARE Routine 04/26/2023 8:20 PM CDT GLUCOSE - POINT OF CARE Routine 04/26/2023 4:06 PM CDT XR FOOT RIGHT 2VW Routine 04/26/2023 1:4 7 PM CDT 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, unspecified ulcer stage (HCC) EKG 12-LEAD Routine 04/26/2023 11:39 AM CDT Chronic diastolic congestive heart failure (HCC) GLUCOSE - POINT OF CARE Routine 04/26/2023 11:37 AM CDT XR CHEST 1VW PORTABLE Routine 04/26/2023 8:51 AM CDT Diabetic ulcer of left heel associated with type 2 diabetes mellitus, unspecified ulcer stage (HCC) GLUCOSE - POINT OF CARE Routine 04/26/2023 8:36 AM CDT PTT [facility] STAT 04/26/2023 6:29 AM CDT PT-INR [facility] STAT 04/26/2023 6:29 AM CDT CBC W/O DIFFERENTIAL STAT 04/26/2023 6:29 AM CDT COMPREHENSIVE METABOLIC PANEL STAT 04/26/2023 6:29 AM CDT PHOSPHORUS BLOOD STAT 04/26/2023 6:29 AM CDT MAGNESIUM BLOOD STAT 04/26/2023 6:29 AM CDT LACTIC ACID BLOOD STAT 04/26/2023 6:2 9 AM CDT documented in this encounter Results * SARS-COV-2 (COVID-19) RAPID (05/09/2023 1:05 PM CDT) COVID-19 PCR Not detected Not detected 05/09/20 2:10 PM CDT [facility] Microbiology SPECIMEN FROM NASOPHARYNGEAL STRUCTURE / Unknown Collection / Unknown 05/09/2023 1:05 PM CDT 05/09/2023 1:25 PM CDT Narrative [facility] - 05/09/2023 2:10 PM CDT The Cepheid Xpert Xpress SARS-COV-2 has been authorized by [...] Vargas MD LAB - MICROBIOLOG Y ORDERABLES [address] [address], [facility] [phone] * GLUCOSE - POINT OF CARE (05/09/2023 11:58 AM CDT) Glucose WB/POC 114 70 - 115 mg/dL 05/09/2023 11:59 AM CDT [facility] Specimen Type Venous 05/09/2023 11:59 AM CDT [facility] Blood BLOOD SPECIMEN / Unknown 05/09/2023 11:58 AM CDT 05/09/2023 11:59 AM CDT Joe Vargas MD LAB - POINT OF CA RE ORDERABLES [address] [address], [place] [phone] * (ABNORMAL) GLUCOSE - POINT OF CARE (05/09/2023 7:59 AM CDT) Glucose WB/POC 131(H) 70 - 115 mg/dL 05/09/2023 8:01 AM [facility] Specimen Type Cap Fingerstick 2022 8:01 AM [facility] Blood BLOOD SPECIMEN / Unknown 05/09/2023 7:59 AM CDT 05/09/2023 8:01 AM CDT Joe Vargas MD LAB - POINT OF AR RE ORDERABLES [facility] [address] [place] [address], [facility] [phone] * (ABNORMAL) CBC W/O DIFFERENTIAL (05/09/2023 6:30 AM CDT) WBC 7.9 3.5 - 10.5 10? 3 /uL 05/09/2023 7:08 AM [facility] RBC 2.85(L) 3.80 - 5.20 10? 6 /uL 05/09/2023 7:08 AM [facility] Hemoglobin 7.6(L) 12.0 - 15.6 g/dL 05/09/2023 7:08 AM [facility] Hematocrit 25.9(L) 35.0 - 45.0 % 05/09/2023 7:08 AM [facility] MCV 90.9 80.7 - 98.3 fL 05/09/2023 7:08 AM [facility] MCH 26.7 26.7 - 34.0 pg 05/09/2023 7:08 AM [facility] MCHC 29.3(L) 30.8 - 35.9 g/dL 05/09/2023 7:08 AM [facility] RDW-SD 71.0(H) 36.0 - 50.0 fL 05/09/2023 7:08 AM [facility] RDW-CV 21.3(H) 11.2 - 14.8 % 05/09/2023 7:08 AM [facility] Platelet Count 490(H) 150 - 400 10? 3 /uL 05/09/2023 7:08 AM [facility] MPV 9.4 9.4 - 12.9 fL 05/09/2023 7:08 AM [facility] nRBC Absolute 0.00 0 10? 3 /uL 05/09/2023 7:08 AM [facility] nRBC Auto 0.0 0 /100 WBC 05/09/2023 7:08 AM T [facility] Blood BLOOD SPECIMEN / Unknown Venipuncture / Unknown 05/09/2023 6:30 AM CDT 05/09/2023 6:49 AM CDT Sameer Navarro MD LAB - HEMATOLOGY ORD ERABLES Performing Organization Address City/[facility]/ZIP Co de Phone Number [address] [address], [facility] [phone] * MAGNESIUM BLOOD (05/09/2023 3:57 AM CDT) Magnesium 2.1 1.6 - 2.6 mg/dL 05/09/2023 6:03 AM [facility] Blood BLOOD SPECIMEN / Unknown Lab Venipuncture / Unknown 05/09/2023 3:57 AM CDT 05/09/2023 5:35 AM CDT Sameer Navarro MD LAB - CHEMISTRY ORDE RABLIZA Performing Organization Address City/[facility]/ZIP Co de Phone Number [address] [address], [facility] [phone] * (ABNORMAL) RENAL FUNCTION PANEL (05/09/2023 3:57 AM CDT) BUN 17 7 - 26 mg/dL 05/09/2023 6:03 AM [facility] Creatinine 1.83(H) 0.56 - 0.96 mg/dL 05/09/2023 6:03 AM [facility] Sodium 142 136 - 145 mmol/L 05/09/2023 6:03 AM [facility] Potassium 4.0 3.5 - 4.5 mmol/L 05/09/2023 6:03 AM [facility] Chloride 112(H) 98 - 107 mmol/L 05/09/2023 6:03 AM [facility] CO2 23 22 - 29 mmol/L 05/09/2023 6:03 AM [facility] Glucose 83 70 - 115 mg/dL 05/09/2023 6:03 AM [facility] Albumin 1.6(L) 3.4 - 5.0 g/dL 05/09/2023 6:03 AM [facility] Calcium 8.5 8.4 - 10.2 mg/dL 05/09/2023 6:03 AM [facility] Phosphorus 4.8 2.9 - 5.1 mg/dL 05/09/2023 6:03 AM [facility] Anion Gap 11 8 - 18 05/09/2023 6:03 AM [facility] BUN/Creatinine Ratio 9 7 - 23 05/09/2023 6:03 AM [facility] Osmolality Calculated 295 270 - 300 mOsm/kg 05/09/2023 6:03 AM [facility] eGFR by CKD-EPI 38(L) >=90 mL/min/1.7 3 m2 05/09/2023 6:03 AM [facility] Blood BLOOD SPECIMEN / Unknown Lab Venipuncture / Unknown 05/09/2023 3:57 AM CDT 05/09/2023 5:35 AM CDT Sameer Navarro MD LAB - CHEMISTRY [facility]INA [facility] [place] Organization Address City/[facility] Co de Phone Number [address] [address] [phone] * VANCOMYCIN LEVEL TROUGH (05/09/2023 3:57 AM CDT) Vancomycin Trough 19.5 10.0 - 20.0 ug/mL 05/09/2023 6:14 AM [facility] Blood BLOOD SPECIMEN / Unknown Lab Venipuncture / Unknown 05/09/2023 3:57 AM CDT 05/09/2023 5:20 AM CDT Narrative [facility] - 05/09/2023 6:14 AM CDT See institution protocol. Rafa Patel MD LAB - CHEMISTRY DIVINA OLVERA [address] [address], [place] [phone] * (ABNORMAL) GLUCOSE - POINT OF CARE (05/08/2023 5:07 PM CDT) Glucose WB/POC 146(H) 70 - 115 mg/dL 05/08/2023 5:08 PM CDT [facility] Specimen Type Venous 05/08/2023 5:08 PM CDT [facility] Blood BLOOD SPECIMEN / Unknown 05/08/2023 5:07 PM CDT 05/08/2023 5:08 PM CDT Joe Vargas MD LAB - POINT OF CA RE ORDERABLES Performing Organization Address [facility]/ZIP Co de Phone Number [address] [address], [place] [phone] * (ABNORMAL) GLUCOSE - POINT OF CARE (05/08/2023 12:00 PM CDT) Glucose WB/POC 125(H) 70 - 115 mg/dL 05/08/2023 12:01 PM CDT [facility] Specimen Type Venous 05/08/2023 12:01 PM CDT [facility] Blood BLOOD SPECIMEN / Unknown 05/08/2023 12:00 PM CDT 05/08/2023 12:01 PM CDT Joe Vargas MD LAB - POINT OF CA RE ORDERABLES [address] [address], [place] [phone] * VANCOMYCIN LEVEL PEAK (05/08/2023 8:41 AM CDT) Vancomycin Peak 26.1 25.0 - 40.0 ug/mL 05/08/2023 9:38 AM CDT [facility] Blood BLOOD SPECIMEN / Unknown Line Draw / Unknown 05/08/2023 8:41 AM CDT 05/08/2023 8:54 AM CDT Narrative [facility] - 05/08/2023 9:38 AM CDT See institution protocol. Data does not support the use of vancomycin peak concentration for efficacy. Rafa Patel MD LAB - CHEMISTRY DIVINA OLVERA Performing Organization Address City/[facility]/ZIP Co de Phone Number [address] [address], [place] [phone] * (ABNORMAL) GLUCOSE - POINT OF CARE (05/08/2023 8:04 AM CDT) Pathologist [facility] Glucose WB/POC 134(H) 70 - 115 mg/dL 05/08/2023 8:06 AM CDT [facility] Specimen Type Venous 05/08/2023 8:06 AM CDT [facility] Blood BLOOD SPECIMEN / Unknown 05/08/2023 8:04 AM CDT 05/08/2023 8:05 AM CDT Joe Vargas MD LAB - POINT OF CA RE ORDERABLES Performing Organization Address City/[facility]/ZIP Co de Phone Number [address] [address], [place] [phone] * (ABNORMAL) CBC W/O DIFFERENTIAL (05/08/2023 6:35 AM CDT) WBC 8.2 3.5 - 10.5 10? 3 /uL 05/08/2023 7:31 AM CDT [facility] RBC 2.96(L) 3.80 - 5.20 10? 6 /uL 05/08/2023 7:31 AM T [facility] Hemoglobin 7.8(L) 12.0 - 15.6 g/dL 05/08/2023 7:31 AM T [facility] Hematocrit 26.8(L) 35.0 - 45.0 % 05/08/2023 7:31 AM T [facility] MCV 90.5 80.7 - 98.3 fL 05/08/2023 7:31 AM [facility] MCH 26.4(L) 26.7 - 34.0 pg 05/08/2023 7:31 AM [facility] MCHC 29.1(L) 30.8 - 35.9 g/dL 05/08/2023 7:31 AM [facility] RDW-SD 68.9(H) 36.0 - 50.0 fL 05/08/2023 7:31 AM [facility] RDW-CV 21.1(H) 11.2 - 14.8 % 05/08/2023 7:31 AM [facility] Platelet Count 498(H) 150 - 400 10? 3 /uL 05/08/2023 7:31 AM [facility] MPV 9.1(L) 9.4 - 12.9 fL 05/08/2023 7:31 AM [facility] nRBC Absolute 0.00 0 10? 3 /uL 05/08/2023 7:31 AM [facility] nRBC Auto 0.0 0 /100 WBC 05/08/2023 7:31 AM [facility] Blood BLOOD SPECIMEN / Unknown Lab Venipuncture / Unknown 05/08/2023 6:35 AM CDT 05/08/2023 7:14 AM CDT Sameer Navarro MD LAB - HEMATOLOGY ORD ERABLES Performing Organization Address [facility]/State/[facility] Co de Phone Number [address] [phone] [phone] * MAGNESIUM BLOOD (05/08/2023 6:35 AM CDT) Magnesium 2.2 1.6 - 2.6 mg/dL 05/08/2023 7:40 AM [facility] Blood BLOOD SPECIMEN / Unknown Lab Venipuncture / Unknown 05/08/2023 6:35 AM CDT 05/08/2023 7:13 AM CDT Sameer Navarro MD LAB - CHEMISTRY DIVINA OL[facility] [place] Organization Address City/State/ZIP Co de Phone Number [facility] [address] [place] [address], [facility] [phone] * (ABNORMAL) RENAL FUNCTION PANEL (05/08/2023 6:35 AM [facility]) BUN 16 7 - 26 mg/dL 05/08/2023 7:40 AM [facility] Creatinine 1.80(H) 0.56 - 0.96 mg/dL 05/08/2023 7:40 AM [facility] Sodium 142 136 - 145 mmol/L 05/08/2023 7:40 AM [facility] Potassium 3.9 3.5 - 4.5 mmol/L 05/08/2023 7:40 AM [facility] Chloride 109(H) 98 - 107 mmol/L 05/08/2023 7:40 AM [facility] CO2 29 22 - 29 mmol/L 05/08/2023 7:40 AM [facility] Glucose 131(H) 70 - 115 mg/dL 05/08/2023 7:40 AM [facility] Albumin 1.4(L) 3.4 - 5.0 g/dL 05/08/2023 7:40 AM [facility] Calcium 8.2(L) 8.4 - 10.2 mg/dL 05/08/2023 7:40 AM [facility] Phosphorus 4.7 2.9 - 5.1 mg/dL 05/08/2023 7:40 AM [facility] Anion Gap 8 8 - 18 05/08/2023 7:40 AM [facility] BUN/Creatinine Ratio 9 7 - 23 05/08/2023 7:40 AM [facility] Osmolality Calculated 297 270 - 300 mOsm/kg 05/08/2023 7:40 AM [facility] eGFR by CKD-EPI 38(L) >=90 mL/min/1.7 3 m2 05/08/2023 7:40 AM [facility] Blood BLOOD SPECIMEN / Unknown Lab Venipuncture / Unknown 05/08/2023 6:35 AM CDT 05/08/2023 7:13 AM CDT Sameer Navarro MD LAB - CHEMISTRY DIVINA OLVERA Performing Organization Address City/[facility]/ZIP Co de Phone Number [address] [address], [place] [phone] * GLUCOSE - POINT OF CARE (05/07/2023 4:03 PM CDT) Glucose WB/POC 108 70 - 115 mg/dL 05/07/2023 4:11 PM CDT [facility] Specimen Type Cap Fingerstick 2022 4:11 PM CDT [facility] Blood BLOOD SPECIMEN / Unknown 05/07/2023 4:03 PM CDT 05/07/2023 4:11 PM CDT Joe Vargas MD LAB - POINT OF CA RE ORDERABLES Performing Organization Address City/[facility]/ZIP Co de Phone Number [address] [address], [place] [phone] * GLUCOSE - POINT OF CARE (05/07/2023 12:34 PM CDT) Glucose WB/POC 115 70 - 115 mg/dL 05/07/2023 12:34 PM CDT [facility] Specimen Type Cap Fingerstick 2022 12:34 PM CDT [facility] Blood BLOOD SPECIMEN / Unknown 05/07/2023 12:34 PM CDT 05/07/2023 12:34 PM CDT Joe Vargas MD LAB - POINT OF CA RE ORDERABLES Performing Organization Address City/[facility]/ZIP Co de Phone Number [address] [address], [place] [phone] * GLUCOSE - POINT OF CARE (05/07/2023 8:20 AM CDT) Glucose WB/POC 108 70 - 115 mg/dL 05/07/2023 8:21 AM [facility] Specimen Type Cap Fingerstick 2022 8:21 AM [facility] Blood BLOOD SPECIMEN / Unknown 05/07/2023 8:20 AM CDT 05/07/2023 8:21 AM CDT Joe Vargas MD LAB - POINT OF CA RE ORDERABLES Performing Organization Address [facility]/State/[facility] Co de Phone Number [facility] [address] [place] [phone] [phone] * (ABNORMAL) CBC W/O DIFFERENTIAL (05/07/2023 6:16 AM CDT) WBC 7.5 3.5 - 10.5 10? 3 /uL 05/07/2023 7:38 AM [facility] RBC 2.91(L) 3.80 - 5.20 10? 6 /uL 05/07/2023 7:38 AM [facility] Hemoglobin 7.8(L) 12.0 - 15.6 g/dL 05/07/2023 7:38 AM [facility] Hematocrit 26.7(L) 35.0 - 45.0 % 05/07/2023 7:38 AM [facility] MCV 91.8 80.7 - 98.3 fL 05/07/2023 7:38 AM [facility] MCH 26.8 26.7 - 34.0 pg 05/07/2023 7:38 AM [facility] MCHC 29.2(L) 30.8 - 35.9 g/dL 05/07/2023 7:38 AM [facility] RDW-SD 69.0(H) 36.0 - 50.0 fL 05/07/2023 7:38 AM [facility] RDW-CV 20.7(H) 11.2 - 14.8 % 05/07/2023 7:38 AM [facility] Platelet Count 580(H) 150 - 400 10? 3 /uL 05/07/2023 7:38 AM [facility] MPV 9.2(L) 9.4 - 12.9 fL 05/07/2023 7:38 AM CDT [facility] nRBC Absolute 0.02(H) 0 10? 3 /uL 05/07/2023 7:38 AM CDT [facility] nRBC Auto 0.3(H) 0 /100 WBC 05/07/2023 7:38 AM CDT [facility] Blood BLOOD SPECIMEN / Unknown Lab Venipuncture / Unknown 05/07/2023 6:16 AM CDT 05/07/2023 6:53 AM CDT Sameer Navarro MD LAB - HEMATOLOGY ORD ERABLES Performing Organization Address City/[facility]/ZIP Co de Phone Number [address] [address], [facility] [phone] * MAGNESIUM BLOOD (05/07/2023 6:16 AM CDT) Magnesium 2.1 1.6 - 2.6 mg/dL 05/07/2023 7:20 AM T [facility] Blood BLOOD SPECIMEN / Unknown Lab Venipuncture / Unknown 05/07/2023 6:16 AM CDT 05/07/2023 6:53 AM CDT Sameer Navarro MD LAB - CHEMISTRY ORDE RABLES [address] [address], [facility] [phone] * (ABNORMAL) RENAL FUNCTION PANEL (05/07/2023 6:16 AM CDT) BUN 16 7 - 26 mg/dL 05/07/2023 7:20 AM T [facility] Creatinine 1.70(H) 0.56 - 0.96 mg/dL 05/07/2023 7:20 AM T [facility] Sodium 144 136 - 145 mmol/L 05/07/2023 7:20 AM T [facility] Potassium 4.1 3.5 - 4.5 mmol/L 05/07/2023 7:20 AM T [facility] Chloride 110(H) 98 - 107 mmol/L 05/07/2023 7:20 AM [facility] CO2 26 22 - 29 mmol/L 05/07/2023 7:20 AM [facility] Glucose 102 70 - 115 mg/dL 05/07/2023 7:20 AM [facility] Albumin 1.4(L) 3.4 - 5.0 g/dL 05/07/2023 7:20 AM [facility] Calcium 8.3(L) 8.4 - 10.2 mg/dL 05/07/2023 7:20 AM [facility] Phosphorus 4.8 2.9 - 5.1 mg/dL 05/07/2023 7:20 AM [facility] Anion Gap 12 8 - 18 05/07/2023 7:20 AM [facility] BUN/Creatinine Ratio 9 7 - 23 05/07/2023 7:20 AM [facility] Osmolality Calculated 299 270 - 300 mOsm/kg 05/07/2023 7:20 AM [facility] eGFR by CKD-EPI 41(L) >=90 mL/min/1.7 3 m2 05/07/2023 7:20 AM [facility] Blood BLOOD SPECIMEN / Unknown Lab Venipuncture / Unknown 05/07/2023 6:16 AM CDT 05/07/2023 6:53 AM CDT Sameer Navarro MD LAB - CHEMISTRY DIVINA OLVERA [facility] [place] [place] Organization Address [facility]/State/[facility] Co de Phone Number [facility] [address] [place] [id number] [phone] * GLUCOSE - POINT OF CARE (05/06/2023 5:04 PM CDT) Glucose WB/POC 108 70 - 115 mg/dL 05/06/2023 5:05 PM [facility] Specimen Type Venous 05/06/2023 5:05 PM [facility] Blood BLOOD SPECIMEN / Unknown 05/06/2023 5:04 PM CDT 05/06/2023 5:05 PM CDT Joe Vargas MD LAB - POINT OF AR RE ORDERABLES [address] [address], [place] [phone] * GLUCOSE - POINT OF CARE (05/06/2023 11:13 AM CDT) Glucose WB/POC 110 70 - 115 mg/dL 05/06/2023 11:14 AM CDT [facility] Specimen Type Venous 05/06/2023 11:14 AM CDT [facility] Blood BLOOD SPECIMEN / Unknown 05/06/2023 11:13 AM CDT 05/06/2023 11:14 AM CDT Joe Vargas MD LAB - POINT OF AR RE ORDERABLES Performing Organization Address City/[facility]/ZIP Co de Phone Number [address] [address], [place] [phone] * (ABNORMAL) GLUCOSE - POINT OF CARE (05/06/2023 7:08 AM CDT) Glucose WB/POC 120(H) 70 - 115 mg/dL 05/06/2023 7:10 AM CDT [facility] Specimen Type Venous 05/06/2023 7:10 AM CDT [facility] Blood BLOOD SPECIMEN / Unknown 05/06/2023 7:08 AM CDT 05/06/2023 7:10 AM CDT Rafa Patel MD LAB - POINT OF CARE ORDERABLES [address] [address], [place] [phone] * (ABNORMAL) CBC W/O DIFFERENTIAL (05/06/2023 4:13 AM CDT) WBC 8.5 3.5 - 10.5 10? 3 /uL 05/06/2023 5:24 AM CDT [facility] RBC 2.76(L) 3.80 - 5.20 10? 6 /uL 05/06/2023 5:24 AM [facility] Hemoglobin 7.3(L) 12.0 - 15.6 g/dL 05/06/2023 5:24 AM [facility] Hematocrit 24.3(L) 35.0 - 45.0 % 05/06/2023 5:24 AM [facility] MCV 88.0 80.7 - 98.3 fL 05/06/2023 5:24 AM [facility] MCH 26.4(L) 26.7 - 34.0 pg 05/06/2023 5:24 AM [facility] MCHC 30.0(L) 30.8 - 35.9 g/dL 05/06/2023 5:24 AM [facility] RDW-SD 64.7(H) 36.0 - 50.0 fL 05/06/2023 5:24 AM [facility] RDW-CV 20.4(H) 11.2 - 14.8 % 05/06/2023 5:24 AM [facility] Platelet Count 537(H) 150 - 400 10? 3 /uL 05/06/2023 5:24 AM [facility] MPV 9.3(L) 9.4 - 12.9 fL 05/06/2023 5:24 AM [facility] nRBC Absolute 0.00 0 10? 3 /uL 05/06/2023 5:24 AM [facility] nRBC Auto 0.0 0 /100 WBC 05/06/2023 5:24 AM [facility] Blood BLOOD SPECIMEN / Unknown Lab Venipuncture / Unknown 05/06/2023 4:13 AM CDT 05/06/2023 5:06 AM T Sameer Navarro MD LAB - HEMATOLOGY ORD ERABLES [facility] [address] [place] [address], [facility] [phone] * MAGNESIUM BLOOD (05/06/2023 4:13 AM CDT) Pathologist [facility] Magnesium 2.1 1.6 - 2.6 mg/dL 05/06/2023 5:40 AM [facility] Blood BLOOD SPECIMEN / Unknown Lab Venipuncture / Unknown 05/06/2023 4:13 AM CDT 05/06/2023 5:06 AM CDT Sameer Navarro MD LAB - CHEMISTRY DIVINA OLVERA [facility] [place] [place] Organization Address City/State/ZIP Co de Phone Number [facility] [address] [place] [address], [facility] [phone] * (ABNORMAL) RENAL FUNCTION PANEL (05/06/2023 4:13 AM CDT) [facility] BUN 15 7 - 26 mg/dL 05/06/2023 5:40 AM [facility] Creatinine 1.75(H) 0.56 - 0.96 mg/dL 05/06/2023 5:40 AM [facility] Sodium 145 136 - 145 mmol/L 05/06/2023 5:40 AM [facility] Potassium 3.8 3.5 - 4.5 mmol/L 05/06/2023 5:40 AM [facility] Chloride 112(H) 98 - 107 mmol/L 05/06/2023 5:40 AM [facility] CO2 28 22 - 29 mmol/L 05/06/2023 5:40 AM [facility] Glucose 108 70 - 115 mg/dL 05/06/2023 5:40 AM [facility] Albumin 1.3(L) 3.4 - 5.0 g/dL 05/06/2023 5:40 AM [facility] Calcium 7.8(L) 8.4 - 10.2 mg/dL 05/06/2023 5:40 AM [facility] Phosphorus 4.4 2.9 - 5.1 mg/dL 05/06/2023 5:40 AM [facility] Anion Gap 9 8 - 18 05/06/2023 5:40 AM [facility] BUN/Creatinine Ratio 9 7 - 23 05/06/2023 5:40 AM CDT [facility] Osmolality Calculated 301(H) 270 - 300 mOsm/kg 05/06/2023 5:40 AM CDT [facility] eGFR by CKD-EPI 40(L) >=90 mL/min/1.7 3 m2 05/06/2023 5:40 AM CDT [facility] Blood BLOOD SPECIMEN / Unknown Lab Venipuncture / Unknown 05/06/2023 4:13 AM CDT 05/06/2023 5:06 AM CDT Sameer Navarro MD LAB - CHEMISTRY DIVINA OLVERA [address] [address], [place] [phone] * VANCOMYCIN LEVEL RANDOM (05/06/2023 4:13 AM CDT) Vancomycin Random 17.1 Therapeutic Ranges not established for random specimens ug/mL 05/06/2023 5:25 AM CDT [facility] Blood BLOOD SPECIMEN / Unknown Lab Venipuncture / Unknown 05/06/2023 4:13 AM CDT 05/06/2023 5:01 AM CDT Narrative [facility] - 05/06/2023 5:25 AM CDT See institution protocol. Rafa Patel MD LAB - CHEMISTRY DIVINA OLVERA [address] [address], [place] [phone] * (ABNORMAL) GLUCOSE - POINT OF CARE (05/05/2023 3:54 PM CDT) Glucose WB/POC 117(H) 70 - 115 mg/dL 05/05/2023 3:55 PM CDT [facility] Specimen Type Cap Fingerstick 2022 3:55 PM CDT [facility] Blood BLOOD SPECIMEN / Unknown 05/05/2023 3:54 PM CDT 05/05/2023 3:55 PM CDT Rafa Patel MD LAB - POINT OF CARE ORDERABLES Performing Organization Address City/[facility]/ZIP Co de Phone Number [address] [address], [place] [phone] * GLUCOSE - POINT OF CARE (05/05/2023 12:04 PM CDT) Glucose WB/POC 92 70 - 115 mg/dL 05/05/2023 12:05 PM CDT [facility] Specimen Type Cap Fingerstick 2022 12:05 PM CDT [facility] Blood BLOOD SPECIMEN / Unknown 05/05/2023 12:04 PM CDT 05/05/2023 12:05 PM CDT Rafa Patel MD LAB - POINT OF CARE ORDERABLES Performing Organization Address [facility]/ZIP Co de Phone Number [address] [address], [place] [phone] * (ABNORMAL) GLUCOSE - POINT OF CARE (05/05/2023 7:52 AM CDT) Glucose WB/POC 118(H) 70 - 115 mg/dL 05/05/2023 7:53 AM CDT [facility] Specimen Type Cap Fingerstick 2022 7:53 AM CDT [facility] Blood BLOOD SPECIMEN / Unknown 05/05/2023 7:52 AM CDT 05/05/2023 7:53 AM CDT Rafa Patel MD LAB - POINT OF CARE ORDERABLES Performing Organization Address City/[facility]/ZIP Co de Phone Number [address] [address], [place] [phone] * (ABNORMAL) CBC W/O DIFFERENTIAL (05/05/2023 4:09 AM CDT) WBC 10.1 3.5 - 10.5 10? 3 /uL 05/05/2023 4:51 AM CDT [facility] RBC 2.84(L) 3.80 - 5.20 10? 6 /uL 05/05/2023 4:51 AM [facility] Hemoglobin 7.6(L) 12.0 - 15.6 g/dL 05/05/2023 4:51 AM [facility] Hematocrit 24.8(L) 35.0 - 45.0 % 05/05/2023 4:51 AM [facility] MCV 87.3 80.7 - 98.3 fL 05/05/2023 4:51 AM [facility] MCH 26.8 26.7 - 34.0 pg 05/05/2023 4:51 AM [facility] MCHC 30.6(L) 30.8 - 35.9 g/dL 05/05/2023 4:51 AM [facility] RDW-SD 62.1(H) 36.0 - 50.0 fL 05/05/2023 4:51 AM [facility] RDW-CV 19.9(H) 11.2 - 14.8 % 05/05/2023 4:51 AM [facility] Platelet Count 585(H) 150 - 400 10? 3 /uL 05/05/2023 4:51 AM [facility] MPV 9.2(L) 9.4 - 12.9 fL 05/05/2023 4:51 AM [facility] nRBC Absolute 0.00 0 10? 3 /uL 05/05/2023 4:51 AM [facility] nRBC Auto 0.0 0 /100 WBC 05/05/2023 4:51 AM [facility] Blood BLOOD SPECIMEN / Unknown Venipuncture / Unknown 05/05/2023 4:09 AM CDT 05/05/2023 4:34 AM CDT Sameer Navarro MD LAB - HEMATOLOGY ORD ERABLES [facility] [address] [place] [address], [facility] [phone] * MAGNESIUM BLOOD (05/05/2023 4:09 AM CDT) [facility] Signature Magnesium 2.2 1.6 - 2.6 mg/dL 05/05/2023 5:08 AM [facility] Blood BLOOD SPECIMEN / Unknown Venipuncture / Unknown 05/05/2023 4:09 AM CDT 05/05/2023 4:33 AM CDT Sameer Navarro MD LAB - CHEMISTRY DIVINA OLVERA Performing Organization Address City/[facility]/ZIP Co de Phone Number [address] [address], [facility] [phone] * (ABNORMAL) RENAL FUNCTION PANEL (05/05/2023 4:09 AM CDT) BUN 17 7 - 26 mg/dL 05/05/2023 5:08 AM [facility] Creatinine 1.75(H) 0.56 - 0.96 mg/dL 05/05/2023 5:08 AM [facility] Sodium 143 136 - 145 mmol/L 05/05/2023 5:08 AM [facility] Potassium 3.8 3.5 - 4.5 mmol/L 05/05/2023 5:08 AM [facility] Chloride 108(H) 98 - 107 mmol/L 05/05/2023 5:08 AM [facility] CO2 28 22 - 29 mmol/L 05/05/2023 5:08 AM [facility] Glucose 112 70 - 115 mg/dL 05/05/2023 5:08 AM [facility] Albumin 1.4(L) 3.4 - 5.0 g/dL 05/05/2023 5:08 AM [facility] Calcium 7.9(L) 8.4 - 10.2 mg/dL 05/05/2023 5:08 AM [facility] Phosphorus 4.1 2.9 - 5.1 mg/dL 05/05/2023 5:08 AM [facility] Anion Gap 11 8 - 18 05/05/2023 5:08 AM [facility] BUN/Creatinine Ratio 10 7 - 23 05/05/2023 5:08 AM [facility] Osmolality Calculated 298 270 - 300 mOsm/kg 05/05/2023 5:08 AM CDT [facility] eGFR by CKD-EPI 40(L) >=90 mL/min/1.7 3 m2 05/05/2023 5:08 AM CDT [facility] Blood BLOOD SPECIMEN / Unknown Venipuncture / Unknown 05/05/2023 4:09 AM CDT 05/05/2023 4:33 AM CDT Sameer Navarro MD LAB - CHEMISTRY DIVINA OLVERA Performing Organization Address City/[facility]/ZIP Co de Phone Number [address] [address], [place] [phone] * VANCOMYCIN LEVEL RANDOM (05/05/2023 4:09 AM CDT) Vancomycin Random 11.7 Therapeutic Ranges not established for random specimens ug/mL 05/05/2023 5:00 AM CDT [facility] Blood BLOOD SPECIMEN / Unknown Venipuncture / Unknown 05/05/2023 4:09 AM CDT 05/05/2023 4:24 AM CDT Narrative [facility] - 05/05/2023 5:00 AM CDT See institution protocol. Rafa Patel MD LAB - CHEMISTRY DIVINA OLVERA Performing Organization Address [facility]/ZIP Co de Phone Number [address] [address], [place] [phone] * (ABNORMAL) GLUCOSE - POINT OF CARE (05/04/2023 4:49 PM CDT) Glucose WB/POC 129(H) 70 - 115 mg/dL 05/04/2023 4:50 PM CDT [facility] Specimen Type Cap Fingerstick 2022 4:50 PM CDT [facility] Blood BLOOD SPECIMEN / Unknown 05/04/2023 4:49 PM CDT 05/04/2023 4:50 PM CDT Rafa Patel MD LAB - POINT OF CARE ORDERABLES Performing Organization Address City/[facility]/ZIP Co de Phone Number [address] [address], [place] [phone] * GLUCOSE - POINT OF CARE (05/04/2023 12:02 PM CDT) Glucose WB/POC 113 70 - 115 mg/dL 05/04/2023 12:03 PM CDT [facility] Specimen Type Cap Fingerstick 2022 12:03 PM CDT [facility] Blood BLOOD SPECIMEN / Unknown 05/04/2023 12:02 PM CDT 05/04/2023 12:03 PM CDT Rafa Patel MD LAB - POINT OF CARE ORDERABLES Performing Organization Address [facility]/ZIP Co de Phone Number [address] [address], [place] [phone] * GLUCOSE - POINT OF CARE (05/04/2023 7:49 AM CDT) Glucose WB/POC 103 70 - 115 mg/dL 05/04/2023 7:50 AM CDT [facility] Specimen Type Cap Fingerstick 2022 7:50 AM CDT [facility] Blood BLOOD SPECIMEN / Unknown 05/04/2023 7:49 AM CDT 05/04/2023 7:50 AM CDT Rafa Patel MD LAB - POINT OF CARE ORDERABLES [address] [address], [place] [phone] * (ABNORMAL) CBC W/O DIFFERENTIAL (05/04/2023 6:36 AM CDT) WBC 11.2(H) 3.5 - 10.5 10? 3 /uL 05/04/2023 7:23 AM CDT [facility] RBC 2.96(L) 3.80 - 5.20 10? 6 /uL 05/04/2023 7:23 AM [facility] Hemoglobin 7.9(L) 12.0 - 15.6 g/dL 05/04/2023 7:23 AM [facility] Hematocrit 26.2(L) 35.0 - 45.0 % 05/04/2023 7:23 AM [facility] MCV 88.5 80.7 - 98.3 fL 05/04/2023 7:23 AM [facility] MCH 26.7 26.7 - 34.0 pg 05/04/2023 7:23 AM [facility] MCHC 30.2(L) 30.8 - 35.9 g/dL 05/04/2023 7:23 AM [facility] RDW-SD 62.8(H) 36.0 - 50.0 fL 05/04/2023 7:23 AM [facility] RDW-CV 19.7(H) 11.2 - 14.8 % 05/04/2023 7:23 AM [facility] Platelet Count 666(H) 150 - 400 10? 3 /uL 05/04/2023 7:23 AM [facility] MPV 8.8(L) 9.4 - 12.9 fL 05/04/2023 7:23 AM [facility] nRBC Absolute 0.00 0 10? 3 /uL 05/04/2023 7:23 AM [facility] nRBC Auto 0.0 0 /100 WBC 05/04/2023 7:23 AM [facility] Blood BLOOD SPECIMEN / Unknown Lab Venipuncture / Unknown 05/04/2023 6:36 AM CDT 05/04/2023 6:51 AM CDT Sameer Navarro MD LAB - HEMATOLOGY ORD ERABLES [address] [address], [facility] [phone] * MAGNESIUM BLOOD (05/04/2023 6:36 AM CDT) Magnesium 2.1 1.6 - 2.6 mg/dL 05/04/2023 7:38 AM [facility] Blood BLOOD SPECIMEN / Unknown Lab Venipuncture / Unknown 05/04/2023 6:36 AM CDT 05/04/2023 6:53 AM T Sameer Navarro MD LAB - CHEMISTRY DIVINA OLVERA [facility] [place] [place] Organization Address City/State/ZIP Co de Phone Number [facility] [address] [place] [address], [facility] [phone] * (ABNORMAL) RENAL FUNCTION PANEL (05/04/2023 6:36 AM CDT) BUN 16 7 - 26 mg/dL 05/04/2023 7:38 AM [facility] Creatinine 1.81(H) 0.56 - 0.96 mg/dL 05/04/2023 7:38 AM [facility] Sodium 143 136 - 145 mmol/L 05/04/2023 7:38 AM [facility] Potassium 4.0 3.5 - 4.5 mmol/L 05/04/2023 7:38 AM [facility] Chloride 110(H) 98 - 107 mmol/L 05/04/2023 7:38 AM [facility] CO2 25 22 - 29 mmol/L 05/04/2023 7:38 AM [facility] Glucose 94 70 - 115 mg/dL 05/04/2023 7:38 AM [facility] Albumin 1.4(L) 3.4 - 5.0 g/dL 05/04/2023 7:38 AM [facility] Calcium 8.1(L) 8.4 - 10.2 mg/dL 05/04/2023 7:38 AM [facility] Phosphorus 4.2 2.9 - 5.1 mg/dL 05/04/2023 7:38 AM [facility] Anion Gap 12 8 - 18 05/04/2023 7:38 AM [facility] BUN/Creatinine Ratio 9 7 - 23 05/04/2023 7:38 AM [facility] Osmolality Calculated 297 270 - 300 mOsm/kg 05/04/2023 7:38 AM CDT [facility] eGFR by CKD-EPI 38(L) >=90 mL/min/1.7 3 m2 05/04/2023 7:38 AM CDT [facility] Blood BLOOD SPECIMEN / Unknown Lab Venipuncture / Unknown 05/04/2023 6:36 AM CDT 05/04/2023 6:53 AM CDT Sameer Navarro MD LAB - CHEMISTRY DIVINA OLVERA Performing Organization Address City/[facility]/ZIP Co de Phone Number [address] [address], [facility] [phone] * VANCOMYCIN LEVEL RANDOM (05/04/2023 6:36 AM CDT) Vancomycin Random 15.3 Therapeutic Ranges not established for random specimens ug/mL 05/04/2023 7:12 AM CDT [facility] Blood BLOOD SPECIMEN / Unknown Lab Venipuncture / Unknown 05/04/2023 6:36 AM CDT 05/04/2023 6:47 AM CDT Narrative [facility] - 05/04/2023 7:12 AM CDT See institution protocol. Sameer Navarro MD LAB - CHEMISTRY DIVINA OLVERA Performing Organization Address [facility] Co de Phone Number [address] [address], [place] [phone] * GLUCOSE - POINT OF CARE (05/03/2023 8:01 PM CDT) Glucose WB/POC 100 70 - 115 mg/dL 05/03/2023 8:02 PM CDT [facility] Specimen Type Cap Fingerstick 2022 8:02 PM CDT [facility] Blood BLOOD SPECIMEN / Unknown 05/03/2023 8:01 PM CDT 05/03/2023 8:02 PM CDT Rafa Patel MD LAB - POINT OF CARE ORDERABLES Performing Organization Address City/[facility]/ZIP Co de Phone Number [address] [place] [address], [place] [phone] * (ABNORMAL) GLUCOSE - POINT OF CARE (05/03/2023 4:26 PM CDT) Glucose WB/POC 121(H) 70 - 115 mg/dL 05/03/2023 4:28 PM CDT [facility] Specimen Type Cap Fingerstick 2022 4:28 PM CDT [facility] Blood BLOOD SPECIMEN / Unknown 05/03/2023 4:26 PM CDT 05/03/2023 4:28 PM CDT Rafa Patel MD LAB - POINT OF CARE ORDERABLES [facility] [address] [place] [address], [place] [phone] * (ABNORMAL) GLUCOSE - POINT OF CARE (05/03/2023 11:48 AM CDT) Glucose WB/POC 117(H) 70 - 115 mg/dL 05/03/2023 11:53 AM CDT [facility] Specimen Type Cap Fingerstick 2022 11:53 AM CDT [facility] Blood BLOOD SPECIMEN / Unknown 05/03/2023 11:48 AM CDT 05/03/2023 11:53 AM CDT Rafa Patel MD LAB - POINT OF CARE ORDERABLES [facility] [address] [place] [address], [place] [phone] * GLUCOSE - POINT OF CARE (05/03/2023 7:45 AM CDT) Glucose WB/POC 105 70 - 115 mg/dL 05/03/2023 7:46 AM CDT [facility] Specimen Type Cap Fingerstick 2022 7:46 AM CDT [facility] Blood BLOOD SPECIMEN / Unknown 05/03/2023 7:45 AM CDT 05/03/2023 7:46 AM CDT Rafa Patel MD LAB - POINT OF CARE ORDERABLES [facility] [address] [place] [address], [facility] [phone] * (ABNORMAL) CBC W/O DIFFERENTIAL (05/03/2023 6:38 AM CDT) WBC 10.4 3.5 - 10.5 10? 3 /uL 05/03/2023 7:11 AM [facility] RBC 2.99(L) 3.80 - 5.20 10? 6 /uL 05/03/2023 7:11 AM [facility] Hemoglobin 7.8(L) 12.0 - 15.6 g/dL 05/03/2023 7:11 AM [facility] Hematocrit 26.1(L) 35.0 - 45.0 % 05/03/2023 7:11 AM [facility] MCV 87.3 80.7 - 98.3 fL 05/03/2023 7:11 AM [facility] MCH 26.1(L) 26.7 - 34.0 pg 05/03/2023 7:11 AM [facility] MCHC 29.9(L) 30.8 - 35.9 g/dL 05/03/2023 7:11 AM [facility] RDW-SD 59.9(H) 36.0 - 50.0 fL 05/03/2023 7:11 AM [facility] RDW-CV 19.2(H) 11.2 - 14.8 % 05/03/2023 7:11 AM [facility] Platelet Count 665(H) 150 - 400 10? 3 /uL 05/03/2023 7:11 AM [facility] MPV 9.0(L) 9.4 - 12.9 fL 05/03/2023 7:11 AM [facility] nRBC Absolute 0.02(H) 0 10? 3 /uL 05/03/2023 7:11 AM [facility] nRBC Auto 0.2(H) 0 /100 WBC 05/03/2023 7:11 AM CDT [facility] Blood BLOOD SPECIMEN / Unknown Lab Venipuncture / Unknown 05/03/2023 6:38 AM CDT 05/03/2023 6:55 AM CDT Sameer Navarro MD LAB - HEMATOLOGY ORD ERABLES [address] [address], [facility] [phone] * MAGNESIUM BLOOD (05/03/2023 6:38 AM CDT) Magnesium 2.1 1.6 - 2.6 mg/dL 05/03/2023 7:36 AM T [facility] Blood BLOOD SPECIMEN / Unknown Lab Venipuncture / Unknown 05/03/2023 6:38 AM CDT 05/03/2023 6:55 AM CDT Sameer Navarro MD LAB - CHEMISTRY ORDE RABLES [address] [address], [facility] [phone] * (ABNORMAL) RENAL FUNCTION PANEL (05/03/2023 6:38 AM CDT) BUN 17 7 - 26 mg/dL 05/03/2023 7:36 AM [facility] Creatinine 1.78(H) 0.56 - 0.96 mg/dL 05/03/2023 7:36 AM [facility] Sodium 145 136 - 145 mmol/L 05/03/2023 7:36 AM [facility] Potassium 4.4 3.5 - 4.5 mmol/L 05/03/2023 7:36 AM [facility] Chloride 110(H) 98 - 107 mmol/L 05/03/2023 7:36 AM [facility] CO2 25 22 - 29 mmol/L 05/03/2023 7:36 AM CDT [facility] Glucose 98 70 - 115 mg/dL 05/03/2023 7:36 AM [facility] Albumin 1.4(L) 3.4 - 5.0 g/dL 05/03/2023 7:36 AM [facility] Calcium 8.2(L) 8.4 - 10.2 mg/dL 05/03/2023 7:36 AM [facility] Phosphorus 4.3 2.9 - 5.1 mg/dL 05/03/2023 7:36 AM [facility] Anion Gap 14 8 - 18 05/03/2023 7:36 AM [facility] BUN/Creatinine Ratio 10 7 - 23 05/03/2023 7:36 AM [facility] Osmolality Calculated 302(H) 270 - 300 mOsm/kg 05/03/2023 7:36 AM [facility] eGFR by CKD-EPI 39(L) >=90 mL/min/1.7 3 m2 05/03/2023 7:36 AM [facility] Blood BLOOD SPECIMEN / Unknown Lab Venipuncture / Unknown 05/03/2023 6:38 AM CDT 05/03/2023 6:55 AM CDT Sameer Navarro MD LAB - CHEMISTRY DIVINA OLVERA [address] [address], [facility] [phone] * GLUCOSE - POINT OF CARE (05/03/2023 4:40 AM CDT) Glucose WB/POC 115 70 - 115 mg/dL 05/03/2023 4:44 AM CDT [facility] Specimen Type Arterial 05/03/2023 4:44 AM T [facility] Blood BLOOD SPECIMEN / Unknown 05/03/2023 4:40 AM CDT 05/03/2023 4:44 AM CDT Lavell Daly MD LAB - POINT OF CARE ORDERABLES [address] [address], [facility] [phone] * C DIFFICILE GDH AG + TOXIN A+B (05/03/2023 2:38 AM CDT) C difficile GDH antigen & toxin A/B NEGATIVE NEGATIVE 05/03/2023 8:[address] [facility] MICROBIOLOGY Stool STOOL SPECIMEN / Unknown Collection / Unknown 05/03/2023 2:38 AM CDT 05/03/2023 3:[address] [facility] MICROBIOLOG[facility] - 05/03/2023 8:29 AM CDT Negative for toxigenic C. difficile Harpreet Johnston MD LAB - MICROBIOLOGY O RDERABLES [facility] MICROBIOLOGY [address] [place] [address], [facility] [phone] * (ABNORMAL) GLUCOSE - POINT OF CARE (05/02/2023 7:59 PM CDT) Glucose WB/POC 119(H) 70 - 115 mg/dL 05/02/2023 8:04 PM CDT [facility] Specimen Type Arterial 05/02/2023 8:04 PM CDT [facility] Blood BLOOD SPECIMEN / Unknown 05/02/2023 7:59 PM CDT 05/02/2023 8:04 PM CDT Lavell Daly MD LAB - POINT OF CARE ORDERABLES [facility] [address] [place] [address], [facility] [phone] * (ABNORMAL) GLUCOSE - POINT OF CARE (05/02/2023 4:26 PM CDT) Glucose WB/POC 119(H) 70 - 115 mg/dL 05/02/2023 5:52 PM CDT [facility] Specimen Type Cap Fingerstick 2022 5:52 PM CDT [facility] Blood BLOOD SPECIMEN / Unknown 05/02/2023 4:26 PM CDT 05/02/2023 5:52 PM CDT Lavell Daly MD LAB - POINT OF CARE ORDERABLES [facility] [address] [place] [address], [place] [phone] * GLUCOSE - POINT OF CARE (05/02/2023 11:40 AM CDT) Glucose WB/POC 107 70 - 115 mg/dL 05/02/2023 11:41 AM CDT [facility] Specimen Type Cap Fingerstick 2022 11:41 AM CDT [facility] Blood BLOOD SPECIMEN / Unknown 05/02/2023 11:40 AM CDT 05/02/2023 11:41 AM CDT Sameer Navarro MD LAB - POINT OF CARE ORDERABLES Performing Organization Address City/[facility]/ZIP Co de Phone Number [address] [address], [place] [phone] * (ABNORMAL) GLUCOSE - POINT OF CARE (05/02/2023 8:13 AM CDT) Glucose WB/POC 116(H) 70 - 115 mg/dL 05/02/2023 8:18 AM CDT [facility] Specimen Type Cap Fingerstick 2022 8:18 AM CDT [facility] Blood BLOOD SPECIMEN / Unknown 05/02/2023 8:13 AM CDT 05/02/2023 8:18 AM CDT Sameer Navarro MD LAB - POINT OF CARE ORDERABLES [address] [address], [place] [phone] * (ABNORMAL) CBC W/O DIFFERENTIAL (05/02/2023 6:57 AM CDT) WBC 10.4 3.5 - 10.5 10? 3 /uL 05/02/2023 8:03 AM [facility] RBC 2.85(L) 3.80 - 5.20 10? 6 /uL 05/02/2023 8:03 AM [facility] Hemoglobin 7.6(L) 12.0 - 15.6 g/dL 05/02/2023 8:03 AM [facility] Hematocrit 25.0(L) 35.0 - 45.0 % 05/02/2023 8:03 AM [facility] MCV 87.7 80.7 - 98.3 fL 05/02/2023 8:03 AM [facility] MCH 26.7 26.7 - 34.0 pg 05/02/2023 8:03 AM [facility] MCHC 30.4(L) 30.8 - 35.9 g/dL 05/02/2023 8:03 AM [facility] RDW-SD 58.8(H) 36.0 - 50.0 fL 05/02/2023 8:03 AM [facility] RDW-CV 19.0(H) 11.2 - 14.8 % 05/02/2023 8:03 AM [facility] Platelet Count 713(H) 150 - 400 10? 3 /uL 05/02/2023 8:03 AM [facility] MPV 9.2(L) 9.4 - 12.9 fL 05/02/2023 8:03 AM [facility] nRBC Absolute 0.02(H) 0 10? 3 /uL 05/02/2023 8:03 AM [facility] nRBC Auto 0.2(H) 0 /100 WBC 05/02/2023 8:03 AM [facility] Blood BLOOD SPECIMEN / Unknown Lab Venipuncture / Unknown 05/02/2023 6:57 AM CDT 05/02/2023 7:45 AM [facility] Sameer Navarro MD LAB - HEMATOLOGY ORD ERABLES [facility] [address] [place] [address], [facility] [phone] * MAGNESIUM BLOOD (05/02/2023 6:57 AM CDT) Magnesium 1.9 1.6 - 2.6 mg/dL 05/02/2023 8:27 AM [facility] Blood BLOOD SPECIMEN / Unknown Lab Venipuncture / Unknown 05/02/2023 6:57 AM CDT 05/02/2023 7:49 AM CDT Sameer Navarro MD LAB - CHEMISTRY DIVINA OLVERA [facility] [place] Organization Address City/State/ZIP Co de Phone Number [facility] [address] [place] [address], [facility] [phone] * (ABNORMAL) RENAL FUNCTION PANEL (05/02/2023 6:57 AM CDT) BUN 17 7 - 26 mg/dL 05/02/2023 8:27 AM [facility] Creatinine 1.72(H) 0.56 - 0.96 mg/dL 05/02/2023 8:27 AM [facility] Sodium 146(H) 136 - 145 mmol/L 05/02/2023 8:27 AM [facility] Potassium 3.9 3.5 - 4.5 mmol/L 05/02/2023 8:27 AM [facility] Chloride 111(H) 98 - 107 mmol/L 05/02/2023 8:27 AM [facility] CO2 27 22 - 29 mmol/L 05/02/2023 8:27 AM [facility] Glucose 105 70 - 115 mg/dL 05/02/2023 8:27 AM [facility] Albumin 1.4(L) 3.4 - 5.0 g/dL 05/02/2023 8:27 AM [facility] Calcium 8.1(L) 8.4 - 10.2 mg/dL 05/02/2023 8:27 AM [facility] Phosphorus 4.3 2.9 - 5.1 mg/dL 05/02/2023 8:27 AM CDT [facility] Anion Gap 12 8 - 18 05/02/2023 8:27 AM CDT [facility] BUN/Creatinine Ratio 10 7 - 23 05/02/2023 8:27 AM CDT [facility] Osmolality Calculated 304(H) 270 - 300 mOsm/kg 05/02/2023 8:27 AM CDT [facility] eGFR by CKD-EPI 41(L) >=90 mL/min/1.7 3 m2 05/02/2023 8:27 AM CDT [facility] Blood BLOOD SPECIMEN / Unknown Lab Venipuncture / Unknown 05/02/2023 6:57 AM CDT 05/02/2023 7:49 AM CDT Sameer Navarro MD LAB - CHEMISTRY DIVINA OLVERA [facility] [address] [place] [address], [place] [phone] * VANCOMYCIN LEVEL RANDOM (05/02/2023 6:57 AM CDT) Vancomycin Random 15.9 Therapeutic Ranges not established for random specimens ug/mL 05/02/2023 8:04 AM CDT [facility] Blood BLOOD SPECIMEN / Unknown Lab Venipuncture / Unknown 05/02/2023 6:57 AM CDT 05/02/2023 7:39 AM CDT Narrative [facility] - 05/02/2023 8:04 AM CDT See institution protocol. Sameer Navarro MD LAB - CHEMISTRY DIVINA OLVERA [facility] [address] [place] [address], [place] [phone] * GLUCOSE - POINT OF CARE (05/02/2023 4:17 AM CDT) Glucose WB/POC 112 70 - 115 mg/dL 05/02/2023 4:29 AM CDT [facility] Specimen Type Cap Fingerstick 2022 4:29 AM CDT [facility] Blood BLOOD SPECIMEN / Unknown 05/02/2023 4:17 AM CDT 05/02/2023 4:28 AM CDT Sameer Navarro MD LAB - POINT OF CARE ORDERABLES [facility] [address] [place] [address], [place] [phone] * (ABNORMAL) GLUCOSE - POINT OF CARE (05/01/2023 8:51 PM CDT) Glucose WB/POC 151(H) 70 - 115 mg/dL 05/01/2023 8:56 PM CDT [facility] Specimen Type Cap Fingerstick 2022 8:56 PM CDT [facility] Blood BLOOD SPECIMEN / Unknown 05/01/2023 8:51 PM CDT 05/01/2023 8:56 PM CDT Sameer Navarro MD LAB - POINT OF CARE ORDERABLES Performing Organization Address City/[facility]/ZIP Co de Phone Number [address] [address], [place] [phone] * (ABNORMAL) GLUCOSE - POINT OF CARE (05/01/2023 5:30 PM CDT) Glucose WB/POC 161(H) 70 - 115 mg/dL 05/01/2023 5:31 PM CDT [facility] Specimen Type Cap Fingerstick 2022 5:31 PM CDT [facility] Blood BLOOD SPECIMEN / Unknown 05/01/2023 5:30 PM CDT 05/01/2023 5:31 PM CDT Provider Unknown LAB - POINT OF CARE ORDERABLES [address] [address], [place] [phone] * (ABNORMAL) GLUCOSE - POINT OF CARE (05/01/2023 11:43 AM CDT) Glucose WB/POC 123(H) 70 - 115 mg/dL 05/01/2023 11:46 AM CDT [facility] Specimen Type Cap Fingerstick 2022 11:46 AM CDT [facility] Blood BLOOD SPECIMEN / Unknown 05/01/2023 11:43 AM CDT 05/01/2023 11:46 AM CDT Provider Unknown LAB - POINT OF CARE ORDERABLES [facility] [address] [place] [address], [place] [phone] * GLUCOSE - POINT OF CARE (05/01/2023 8:21 AM CDT) Glucose WB/POC 109 70 - 115 mg/dL 05/01/2023 8:23 AM CDT [facility] Specimen Type Cap Fingerstick 2022 8:23 AM CDT [facility] Blood BLOOD SPECIMEN / Unknown 05/01/2023 8:21 AM CDT 05/01/2023 8:23 AM CDT Sameer Navarro MD LAB - POINT OF CARE ORDERABLES Performing Organization Address City/[facility]/ZIP Co de Phone Number [facility] [address] [place] [address], [place] [phone] * MAGNESIUM BLOOD (05/01/2023 6:59 AM CDT) Magnesium 2.0 1.6 - 2.6 mg/dL 05/01/2023 7:52 AM CDT [facility] Blood BLOOD SPECIMEN / Unknown Lab Venipuncture / Unknown 05/01/2023 6:59 AM CDT 05/01/2023 7:27 AM CDT Sameer Navarro MD LAB - CHEMISTRY DIVINA OLVERA Performing Organization Address City/[facility]/ZIP Co de Phone Number [address] [address], [place] [phone] * (ABNORMAL) RENAL FUNCTION PANEL (05/01/2023 6:59 AM CDT) BUN 17 7 - 26 mg/dL 05/01/2023 7:52 AM [facility] Creatinine 1.64(H) 0.56 - 0.96 mg/dL 05/01/2023 7:52 AM [facility] Sodium 145 136 - 145 mmol/L 05/01/2023 7:52 AM [facility] Potassium 4.0 3.5 - 4.5 mmol/L 05/01/2023 7:52 AM [facility] Chloride 111(H) 98 - 107 mmol/L 05/01/2023 7:52 AM [facility] CO2 29 22 - 29 mmol/L 05/01/2023 7:52 AM [facility] Glucose 108 70 - 115 mg/dL 05/01/2023 7:52 AM [facility] Albumin 1.4(L) 3.4 - 5.0 g/dL 05/01/2023 7:52 AM [facility] Calcium 8.0(L) 8.4 - 10.2 mg/dL 05/01/2023 7:52 AM [facility] Phosphorus 4.2 2.9 - 5.1 mg/dL 05/01/2023 7:52 AM [facility] Anion Gap 9 8 - 18 05/01/2023 7:52 AM [facility] BUN/Creatinine Ratio 10 7 - 23 05/01/2023 7:52 AM [facility] Osmolality Calculated 302(H) 270 - 300 mOsm/kg 05/01/2023 7:52 AM [facility] eGFR by CKD-EPI 43(L) >=90 mL/min/1.7 3 m2 05/01/2023 7:52 AM [facility] Blood BLOOD SPECIMEN / Unknown Lab Venipuncture / Unknown 05/01/2023 6:59 AM CDT 05/01/2023 7:27 AM CDT Sameer Navarro MD LAB - CHEMISTRY DIVINA OLVERA [facility] [place] Organization Address City/State/ZIP Co de Phone Number [facility] [address] [place] [address], [facility] [phone] * (ABNORMAL) CBC W/O DIFFERENTIAL (05/01/2023 6:56 AM CDT) WBC 9.0 3.5 - 10.5 10? 3 /uL 05/01/2023 7:32 AM [facility] RBC 3.00(L) 3.80 - 5.20 10? 6 /uL 05/01/2023 7:32 AM [facility] Hemoglobin 7.8(L) 12.0 - 15.6 g/dL 05/01/2023 7:32 AM [facility] Hematocrit 26.4(L) 35.0 - 45.0 % 05/01/2023 7:32 AM [facility] MCV 88.0 80.7 - 98.3 fL 05/01/2023 7:32 AM [facility] MCH 26.0(L) 26.7 - 34.0 pg 05/01/2023 7:32 AM [facility] MCHC 29.5(L) 30.8 - 35.9 g/dL 05/01/2023 7:32 AM [facility] RDW-SD 59.0(H) 36.0 - 50.0 fL 05/01/2023 7:32 AM [facility] RDW-CV 18.9(H) 11.2 - 14.8 % 05/01/2023 7:32 AM [facility] Platelet Count 682(H) 150 - 400 10? 3 /uL 05/01/2023 7:32 AM [facility] MPV 9.2(L) 9.4 - 12.9 fL 05/01/2023 7:32 AM [facility] nRBC Absolute 0.00 0 10? 3 /uL 05/01/2023 7:32 AM [facility] nRBC Auto 0.0 0 /100 WBC 05/01/2023 7:32 AM [facility] Blood BLOOD SPECIMEN / Unknown Lab Venipuncture / Unknown 05/01/2023 6:56 AM CDT 05/01/2023 7:26 AM CDT Sameer Navarro MD LAB - HEMATOLOGY ORD ERABLES [address] [address], [place] [phone] * VANCOMYCIN LEVEL RANDOM (05/01/2023 6:56 AM CDT) Vancomycin Random 21.3 Therapeutic Ranges not established for random specimens ug/mL 05/01/2023 7:50 AM CDT [facility] Blood BLOOD SPECIMEN / Unknown Lab Venipuncture / Unknown 05/01/2023 6:56 AM CDT 05/01/2023 7:22 AM CDT Narrative [facility] - 05/01/2023 7:50 AM CDT See institution protocol. Erin Malone MD LAB - CHEMISTRY ORD ERABLES Performing Organization Address City/[facility]/ZIP Co de Phone Number [address] [address], [place] [phone] * (ABNORMAL) GLUCOSE - POINT OF CARE (05/01/2023 4:10 AM CDT) [facility] Glucose WB/POC 125(H) 70 - 115 mg/dL 05/01/2023 4:15 AM CDT [facility] Specimen Type Arterial 05/01/2023 4:15 AM CDT [facility] Blood BLOOD SPECIMEN / Unknown 05/01/2023 4:10 AM CDT 05/01/2023 4:15 AM CDT Selam Person MD LAB - POINT OF CARE ORDERABLES [address] [address], [place] [phone] * (ABNORMAL) GLUCOSE - POINT OF CARE (05/01/2023 12:22 AM CDT) Glucose WB/POC 146(H) 70 - 115 mg/dL 05/01/2023 1:32 AM CDT [facility] Specimen Type Arterial 05/01/2023 1:32 AM CDT [facility] Blood BLOOD SPECIMEN / Unknown 05/01/2023 12:22 AM CDT 05/01/2023 1:32 AM CDT Selam Person MD LAB - POINT OF CARE ORDERABLES [facility] [address] [place] [address], [place] [phone] * (ABNORMAL) GLUCOSE - POINT OF CARE (04/30/2023 7:51 PM CDT) Glucose WB/POC 163(H) 70 - 115 mg/dL 04/30/2023 7:56 PM CDT [facility] Specimen Type Arterial 04/30/2023 7:56 PM CDT [facility] Blood BLOOD SPECIMEN / Unknown 04/30/2023 7:51 PM CDT 04/30/2023 7:56 PM CDT Selam Person MD LAB - POINT OF CARE ORDERABLES Performing Organization Address City/[facility]/ZIP Co de Phone Number [address] [address], [place] [phone] * (ABNORMAL) GLUCOSE - POINT OF CARE (04/30/2023 4:41 PM CDT) Glucose WB/POC 154(H) 70 - 115 mg/dL 04/30/2023 4:41 PM CDT [facility] Specimen Type Cap Fingerstick 2022 4:41 PM CDT [facility] Blood BLOOD SPECIMEN / Unknown 04/30/2023 4:41 PM CDT 04/30/2023 4:41 PM CDT Selam Person MD LAB - POINT OF CARE ORDERABLES [address] [place] [address], [place] [phone] * (ABNORMAL) GLUCOSE - POINT OF CARE (04/30/2023 11:42 AM CDT) Glucose WB/POC 136(H) 70 - 115 mg/dL 04/30/2023 12:11 PM CDT [facility] Specimen Type Cap Fingerstick 2022 12:11 PM CDT [facility] Blood BLOOD SPECIMEN / Unknown 04/30/2023 11:42 AM CDT 04/30/2023 12:11 PM CDT Selam Person MD LAB - POINT OF CARE ORDERABLES [facility] [address] [place] [address], [place] [phone] * (ABNORMAL) GLUCOSE - POINT OF CARE (04/30/2023 7:35 AM CDT) Pathologist [facility] Glucose WB/POC 118(H) 70 - 115 mg/dL 04/30/2023 7:36 AM CDT [facility] Specimen Type Cap Fingerstick 2022 7:36 AM CDT [facility] Blood BLOOD SPECIMEN / Unknown 04/30/2023 7:35 AM CDT 04/30/2023 7:36 AM CDT Erin Malone MD LAB - POINT OF CARE ORDERABLES [facility] [address] [place] [address], [place] [phone] * (ABNORMAL) CBC W/O DIFFERENTIAL (04/30/2023 6:37 AM CDT) WBC 10.2 3.5 - 10.5 10? 3 /uL 04/30/2023 8:07 AM CDT [facility] RBC 3.03(L) 3.80 - 5.20 10? 6 /uL 04/30/2023 8:07 AM CDT [facility] Hemoglobin 8.1(L) 12.0 - 15.6 g/dL 04/30/2023 8:07 AM [facility] Hematocrit 26.8(L) 35.0 - 45.0 % 04/30/2023 8:07 AM [facility] MCV 88.4 80.7 - 98.3 fL 04/30/2023 8:07 AM [facility] MCH 26.7 26.7 - 34.0 pg 04/30/2023 8:07 AM [facility] MCHC 30.2(L) 30.8 - 35.9 g/dL 04/30/2023 8:07 AM [facility] RDW-SD 58.1(H) 36.0 - 50.0 fL 04/30/2023 8:07 AM [facility] RDW-CV 18.6(H) 11.2 - 14.8 % 04/30/2023 8:07 AM [facility] Platelet Count 670(H) 150 - 400 10? 3 /uL 04/30/2023 8:07 AM [facility] MPV 9.3(L) 9.4 - 12.9 fL 04/30/2023 8:07 AM [facility] nRBC Absolute 0.00 0 10? 3 /uL 04/30/2023 8:07 AM [facility] nRBC Auto 0.0 0 /100 WBC 04/30/2023 8:07 AM [facility] Blood BLOOD SPECIMEN / Unknown Lab Venipuncture / Unknown 04/30/2023 6:37 AM CDT 04/30/2023 7:36 AM T Sameer Navarro MD LAB - HEMATOLOGY ORD ERABLES [facility] [address] [place] [address], [facility] [phone] * MAGNESIUM BLOOD (04/30/2023 6:37 AM CDT) Magnesium 1.9 1.6 - 2.6 mg/dL 04/30/2023 8:04 AM [facility] Blood BLOOD SPECIMEN / Unknown Lab Venipuncture / Unknown 04/30/2023 6:37 AM CDT 04/30/2023 7:36 AM CDT Sameer Navarro MD LAB - CHEMISTRY DIVINA OLVERA [facility] [place] [place] Organization Address City/State/ZIP Co de Phone Number [facility] [address] [place] [address], [facility] [phone] * (ABNORMAL) RENAL FUNCTION PANEL (04/30/2023 6:37 AM CDT) BUN 14 7 - 26 mg/dL 04/30/2023 8:04 AM [facility] Creatinine 1.58(H) 0.56 - 0.96 mg/dL 04/30/2023 8:04 AM [facility] Sodium 142 136 - 145 mmol/L 04/30/2023 8:04 AM [facility] Potassium 3.7 3.5 - 4.5 mmol/L 04/30/2023 8:04 AM [facility] Chloride 108(H) 98 - 107 mmol/L 04/30/2023 8:04 AM [facility] CO2 31(H) 22 - 29 mmol/L 04/30/2023 8:04 AM [facility] Glucose 104 70 - 115 mg/dL 04/30/2023 8:04 AM [facility] Albumin 1.5(L) 3.4 - 5.0 g/dL 04/30/2023 8:04 AM [facility] Calcium 8.2(L) 8.4 - 10.2 mg/dL 04/30/2023 8:04 AM [facility] Phosphorus 3.9 2.9 - 5.1 mg/dL 04/30/2023 8:04 AM [facility] Anion Gap 7(L) 8 - 18 04/30/2023 8:04 AM [facility] BUN/Creatinine Ratio 9 7 - 23 04/30/2023 8:04 AM [facility] Osmolality Calculated 295 270 - 300 mOsm/kg 04/30/2023 8:04 AM [facility] eGFR by CKD-EPI 45(L) >=90 mL/min/1.7 3 m2 04/30/2023 8:04 AM CDT [facility] Blood BLOOD SPECIMEN / Unknown Lab Venipuncture / Unknown 04/30/2023 6:37 AM CDT 04/30/2023 7:36 AM CDT Sameer Navarro MD LAB - CHEMISTRY DIVINA OLVERA Performing Organization Address City/[facility]/ZIP Co de Phone Number [address] [address], [facility] [phone] * VANCOMYCIN LEVEL RANDOM (04/30/2023 6:37 AM CDT) Pathologist [facility] Vancomycin Random 18.4 Therapeutic Ranges not established for random specimens ug/mL 04/30/2023 8:06 AM CDT [facility] Blood BLOOD SPECIMEN / Unknown Lab Venipuncture / Unknown 04/30/2023 6:37 AM CDT 04/30/2023 7:30 AM CDT Narrative [facility] - 04/30/2023 8:06 AM CDT See institution protocol. Sameer Navarro MD LAB - CHEMISTRY DIVINA OLVERA Performing Organization Address [facility] Co de Phone Number [address] [address], [place] [phone] * (ABNORMAL) GLUCOSE - POINT OF CARE (04/30/2023 4:08 AM CDT) Glucose WB/POC 130(H) 70 - 115 mg/dL 04/30/2023 4:09 AM CDT [facility] Specimen Type Cap Fingerstick 2022 4:09 AM CDT [facility] Blood BLOOD SPECIMEN / Unknown 04/30/2023 4:08 AM CDT 04/30/2023 4:09 AM CDT Erin Malone MD LAB - POINT OF CARE ORDERABLES [facility] [address] [place] [address], [place] [phone] * (ABNORMAL) GLUCOSE - POINT OF CARE (04/30/2023 12:08 AM CDT) Glucose WB/POC 135(H) 70 - 115 mg/dL 04/30/2023 12:13 AM CDT [facility] Specimen Type Cap Fingerstick 2022 12:13 AM CDT [facility] Blood BLOOD SPECIMEN / Unknown 04/30/2023 12:08 AM CDT 04/30/2023 12:13 AM CDT Erin Malone MD LAB - POINT OF CARE ORDERABLES [facility] [address] [place] [address], [place] [phone] * (ABNORMAL) GLUCOSE - POINT OF CARE (04/29/2023 8:06 PM CDT) Glucose WB/POC 207(H) 70 - 115 mg/dL 04/29/2023 8:07 PM CDT [facility] Specimen Type Cap Fingerstick 2022 8:07 PM CDT [facility] Blood BLOOD SPECIMEN / Unknown 04/29/2023 8:06 PM CDT 04/29/2023 8:07 PM CDT Erin Malone MD LAB - POINT OF CARE ORDERABLES [facility] [address] [place] [id number], [place] [phone] * (ABNORMAL) GLUCOSE - POINT OF CARE (04/29/2023 4:09 PM CDT) Glucose WB/POC 148(H) 70 - 115 mg/dL 04/29/2023 4:14 PM CDT [facility] Specimen Type Cap Fingerstick 2022 4:14 PM CDT [facility] Blood BLOOD SPECIMEN / Unknown 04/29/2023 4:09 PM CDT 04/29/2023 4:14 PM CDT Erin Malone MD LAB - POINT OF CARE ORDERABLES [facility] [address] [place] [id number], [place] [phone] * (ABNORMAL) GLUCOSE - POINT OF CARE (04/29/2023 12:04 PM CDT) Glucose WB/POC 128(H) 70 - 115 mg/dL 04/29/2023 12:09 PM CDT [facility] Specimen Type Cap Fingerstick 2022 12:09 PM CDT [facility] Blood BLOOD SPECIMEN / Unknown 04/29/2023 12:04 PM CDT 04/29/2023 12:09 PM CDT Erin Malone MD LAB - POINT OF CARE ORDERABLES Performing Organization Address City/[facility]/ZIP Co de Phone Number [address] [address], [place] [phone] * (ABNORMAL) GLUCOSE - POINT OF CARE (04/29/2023 8:21 AM CDT) Glucose WB/POC 129(H) 70 - 115 mg/dL 04/29/2023 8:26 AM CDT [facility] Specimen Type Cap Fingerstick 2022 8:26 AM CDT [facility] Blood BLOOD SPECIMEN / Unknown 04/29/2023 8:21 AM CDT 04/29/2023 8:26 AM CDT Erin Malone MD LAB - POINT OF CARE ORDERABLES [address] [address], [place] [phone] * MRI TIBIA FIBULA RIGHT WWO CONT [...] report was drafted by Dante Schultz MD (resident inspector) I, Arthur Avery MD have personally reviewed [...] report was drafted by Dante Schultz MD (resident inspector) I, Arthur Avery MD have personally reviewed and interpreted this examination/study. > Interpreting Provider: Arthur Avery MD on 04/29/2023 9:57 AM Sameer Navarro MD MR ORDERABLES * (ABNORMAL) GLUCOSE - POINT OF CARE (04/29/2023 4:42 AM CDT) Glucose WB/POC 140(H) 70 - 115 mg/dL 04/29/2023 4:47 AM CDT [facility] Specimen Type Cap Fingerstick 2022 4:47 AM [facility] Blood BLOOD SPECIMEN / Unknown 04/29/2023 4:42 AM CDT 04/29/2023 4:47 AM CDT Sameer Navarro MD LAB - POINT OF CARE ORDERABLES [facility] [address] [place] [phone], [facility] [phone] * (ABNORMAL) CBC W/O DIFFERENTIAL (04/29/2023 3:38 AM CDT) WBC 11.4(H) 3.5 - 10.5 10? 3 /uL 04/29/2023 4:25 AM [facility] RBC 2.89(L) 3.80 - 5.20 10? 6 /uL 04/29/2023 4:25 AM [facility] Hemoglobin 7.4(L) 12.0 - 15.6 g/dL 04/29/2023 4:25 AM [facility] Hematocrit 25.1(L) 35.0 - 45.0 % 04/29/2023 4:25 AM [facility] MCV 86.9 80.7 - 98.3 fL 04/29/2023 4:25 AM [facility] MCH 25.6(L) 26.7 - 34.0 pg 04/29/2023 4:25 AM [facility] MCHC 29.5(L) 30.8 - 35.9 g/dL 04/29/2023 4:25 AM [facility] RDW-SD 57.1(H) 36.0 - 50.0 fL 04/29/2023 4:25 AM [facility] RDW-CV 18.3(H) 11.2 - 14.8 % 04/29/2023 4:25 AM [facility] Platelet Count 623(H) 150 - 400 10? 3 /uL 04/29/2023 4:25 AM [facility] MPV 9.1(L) 9.4 - 12.9 fL 04/29/2023 4:25 AM CDT [facility] nRBC Absolute 0.00 0 10? 3 /uL 04/29/2023 4:25 AM CDT [facility] nRBC Auto 0.0 0 /100 WBC 04/29/2023 4:25 AM CDT [facility] Blood BLOOD SPECIMEN / Unknown Lab Venipuncture / Unknown 04/29/2023 3:38 AM CDT 04/29/2023 3:53 AM CDT Sameer Navarro MD LAB - HEMATOLOGY ORD ERABLES [address] [phone], [facility] [phone] * MAGNESIUM BLOOD (04/29/2023 3:38 AM CDT) Magnesium 1.9 1.6 - 2.6 mg/dL 04/29/2023 4:21 AM CDT [facility] [facility] Blood BLOOD SPECIMEN / Unknown Lab Venipuncture / Unknown 04/29/2023 3:38 AM CDT 04/29/2023 3:53 AM CDT Sameer Navarro MD LAB - CHEMISTRY ORDE RABLIZA [address] [address], [place] [phone] * (ABNORMAL) RENAL FUNCTION PANEL (04/29/2023 3:38 AM CDT) BUN 13 7 - 26 mg/dL 04/29/2023 4:21 AM CDT [facility] Creatinine 1.45(H) 0.56 - 0.96 mg/dL 04/29/2023 4:21 AM CDT [facility] Sodium 142 136 - 145 mmol/L 04/29/2023 4:21 AM CDT [facility] Potassium 3.8 3.5 - 4.5 mmol/L 04/29/2023 4:21 AM T [facility] Chloride 109(H) 98 - 107 mmol/L 04/29/2023 4:21 AM [facility] CO2 31(H) 22 - 29 mmol/L 04/29/2023 4:21 AM [facility] Glucose 129(H) 70 - 115 mg/dL 04/29/2023 4:21 AM [facility] Albumin 1.3(L) 3.4 - 5.0 g/dL 04/29/2023 4:21 AM [facility] Calcium 8.0(L) 8.4 - 10.2 mg/dL 04/29/2023 4:21 AM [facility] Phosphorus 3.6 2.9 - 5.1 mg/dL 04/29/2023 4:21 AM [facility] Anion Gap 6(L) 8 - 18 04/29/2023 4:21 AM [facility] BUN/Creatinine Ratio 9 7 - 23 04/29/2023 4:21 AM [facility] Osmolality Calculated 296 270 - 300 mOsm/kg 04/29/2023 4:21 AM [facility] eGFR by CKD-EPI 50(L) >=90 mL/min/1.7 3 m2 04/29/2023 4:21 AM [facility] Blood BLOOD SPECIMEN / Unknown Lab Venipuncture / Unknown 04/29/2023 3:38 AM CDT 04/29/2023 3:53 AM CDT Sameer Navarro MD LAB - CHEMISTRY DIVINA OLVERA [facility] [place] Organization Address [facility] Co de Phone Number [facility] [address] [place] [address], [facility] [phone] * VANCOMYCIN LEVEL RANDOM (04/29/2023 3:38 AM CDT) Vancomycin Random 25.6 Therapeutic Ranges not established for random specimens ug/mL 04/29/2023 4:22 AM [facility] Blood BLOOD SPECIMEN / Unknown Lab Venipuncture / Unknown 04/29/2023 3:38 AM CDT 04/29/2023 3:51 AM CDT Narrative [facility] - 04/29/2023 4:22 AM CDT See institution protocol. Sameer Navarro MD LAB - CHEMISTRY DIVINA OLVERA [address] [address], [place] [phone] * (ABNORMAL) GLUCOSE - POINT OF CARE (04/29/2023 12:20 AM CDT) Glucose WB/POC 159(H) 70 - 115 mg/dL 04/29/2023 12:25 AM CDT [facility] Specimen Type Cap Fingerstick 2022 12:25 AM CDT [facility] Blood BLOOD SPECIMEN / Unknown 04/29/2023 12:20 AM CDT 04/29/2023 12:25 AM CDT Sameer Navarro MD LAB - POINT OF CARE ORDERABLES Performing Organization Address City/[facility]/ZIP Co de Phone Number [address] [address], [place] [phone] * (ABNORMAL) GLUCOSE - POINT OF CARE (04/28/2023 8:21 PM CDT) Glucose WB/POC 177(H) 70 - 115 mg/dL 04/28/2023 8:37 PM CDT [facility] Specimen Type Cap Fingerstick 2022 8:37 PM CDT [facility] Blood BLOOD SPECIMEN / Unknown 04/28/2023 8:21 PM CDT 04/28/2023 8:37 PM CDT Sameer Navarro MD LAB - POINT OF CARE ORDERABLES [address] [address], [place] [phone] * (ABNORMAL) GLUCOSE - POINT OF CARE (04/28/2023 5:40 PM CDT) Glucose WB/POC 154(H) 70 - 115 mg/dL 04/28/2023 5:45 PM CDT [facility] Specimen Type Cap Fingerstick 2022 5:45 PM CDT [facility] Blood BLOOD SPECIMEN / Unknown 04/28/2023 5:40 PM CDT 04/28/2023 5:45 PM CDT Sameer Navarro MD LAB - POINT OF CARE ORDERABLES [facility] [address] [place] [address], [place] [phone] * GLUCOSE - POINT OF CARE (04/28/2023 12:18 PM CDT) Glucose WB/POC 111 70 - 115 mg/dL 04/28/2023 12:19 PM CDT [facility] Specimen Type Cap Fingerstick 2022 12:19 PM CDT [facility] Blood BLOOD SPECIMEN / Unknown 04/28/2023 12:18 PM CDT 04/28/2023 12:18 PM CDT Sameer Navarro MD LAB - POINT OF CARE ORDERABLES [facility] [address] [place] [address], [facility] [phone] * VAS ARTERIAL ANKLE ARM INDEX (04/28/2023 11:16 AM CDT) Anatomical Region Laterality Modality Ankle / Foot, Upper Extremity In travascular Ultrasound 04/28/2023 10:4 5 AM CDT Narrative Procedure Note Shirley Desai MD - 04/28/2023 Sameer Navarro MD VASCULAR LAB ORDERAB LES * (ABNORMAL) GLUCOSE - POINT OF CARE (04/28/2023 10:38 AM CDT) Glucose WB/POC 120(H) 70 - 115 mg/dL 04/28/2023 10:43 AM CDT [facility] Specimen Type Cap Fingerstick 2022 10:43 AM CDT [facility] Blood BLOOD SPECIMEN / Unknown 04/28/2023 10:38 AM CDT 04/28/2023 10:42 AM CDT Sameer Navarro MD LAB - POINT OF CARE ORDERABLES [facility] [address] [place] [address], [facility] [phone] * MRI FOOT RIGHT WWO CONTRAST (04/28/2023 [...] report was drafted by Dante Schultz MD (resident inspector) I, Arthur Avery MD have personally reviewed [...] type 2 diabetes mellitus, unspecified ulcer stage ([facility]/HCC) L97.419: 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, unspecified ulcer stage ([facility]) COMPARISON: Radiograph of the right foot dated [...] report was drafted by Dante Schultz MD (resident inspector) I, Arthur Avery MD have personally reviewed [...] report was drafted by Dante Schultz MD (resident inspector) I, Arthur Avery MD have personally reviewed [...] report was drafted by Dante Schultz MD (resident inspector) I, Arthur Avery MD have personally reviewed and interpreted this examination/study. > Interpreting Provider: Arthur Avery MD on 04/28/2023 9:35 AM Sameer Navarro MD MR ORDERABLES * (ABNORMAL) CBC W/O DIFFERENTIAL (04/28/2023 3:19 AM T) WBC 12.3(H) 3.5 - 10.5 10? 3 /uL 04/28/2023 5:51 AM [facility] RBC 2.91(L) 3.80 - 5.20 10? 6 /uL 04/28/2023 5:51 AM [facility] Hemoglobin 7.4(L) 12.0 - 15.6 g/dL 04/28/2023 5:51 AM [facility] Hematocrit 24.6(L) 35.0 - 45.0 % 04/28/2023 5:51 AM [facility] MCV 84.5 80.7 - 98.3 fL 04/28/2023 5:51 AM [facility] MCH 25.4(L) 26.7 - 34.0 pg 04/28/2023 5:51 AM [facility] MCHC 30.1(L) 30.8 - 35.9 g/dL 04/28/2023 5:51 AM [facility] RDW-SD 55.0(H) 36.0 - 50.0 fL 04/28/2023 5:51 AM [facility] RDW-CV 18.1(H) 11.2 - 14.8 % 04/28/2023 5:51 AM [facility] Platelet Count 588(H) 150 - 400 10? 3 /uL 04/28/2023 5:51 AM CDT [facility] MPV 9.2(L) 9.4 - 12.9 fL 04/28/2023 5:51 AM CDT [facility] nRBC Absolute 0.00 0 10? 3 /uL 04/28/2023 5:51 AM CDT [facility] nRBC Auto 0.0 0 /100 WBC 04/28/2023 5:51 AM CDT [facility] Blood BLOOD SPECIMEN / Unknown Lab Venipuncture / Unknown 04/28/2023 3:19 AM CDT 04/28/2023 5:05 AM CDT Sameer Navarro MD LAB - HEMATOLOGY ORD ERABLES [address] [address], [place] [phone] * MAGNESIUM BLOOD (04/28/2023 3:19 AM CDT) Magnesium 1.8 1.6 - 2.6 mg/dL 04/28/2023 5:35 AM T [facility] Blood BLOOD SPECIMEN / Unknown Lab Venipuncture / Unknown 04/28/2023 3:19 AM CDT 04/28/2023 5:05 AM CDT Sameer Navarro MD LAB - CHEMISTRY ORDE RABLIZA [address] [address], [place] [phone] * (ABNORMAL) RENAL FUNCTION PANEL (04/28/2023 3:19 AM CDT) BUN 13 7 - 26 mg/dL 04/28/2023 5:35 AM T [facility] Creatinine 1.39(H) 0.56 - 0.96 mg/dL 04/28/2023 5:35 AM CDT [facility] Sodium 143 136 - 145 mmol/L 04/28/2023 5:35 AM T [facility] Potassium 3.6 3.5 - 4.5 mmol/L 04/28/2023 5:35 AM [facility] Chloride 107 98 - 107 mmol/L 04/28/2023 5:35 AM [facility] CO2 31(H) 22 - 29 mmol/L 04/28/2023 5:35 AM [facility] Glucose 115 70 - 115 mg/dL 04/28/2023 5:35 AM [facility] Albumin 1.2(L) 3.4 - 5.0 g/dL 04/28/2023 5:35 AM [facility] Calcium 7.8(L) 8.4 - 10.2 mg/dL 04/28/2023 5:35 AM [facility] Phosphorus 3.2 2.9 - 5.1 mg/dL 04/28/2023 5:35 AM [facility] Anion Gap 9 8 - 18 04/28/2023 5:35 AM [facility] BUN/Creatinine Ratio 9 7 - 23 04/28/2023 5:35 AM [facility] Osmolality Calculated 297 270 - 300 mOsm/kg 04/28/2023 5:35 AM [facility] eGFR by CKD-EPI 52(L) >=90 mL/min/1.7 3 m2 04/28/2023 5:35 AM [facility] Blood BLOOD SPECIMEN / Unknown Lab Venipuncture / Unknown 04/28/2023 3:19 AM CDT 04/28/2023 5:05 AM CDT Sameer Navarro MD LAB - CHEMISTRY DIVINA [facility] Organization Address City/State/[facility] Co de Phone Number [facility] [address] [place] [address], [facility] [phone] * (ABNORMAL) VANCOMYCIN LEVEL TROUGH (04/28/2023 3:19 AM CDT) [facility] Signature Vancomycin Trough 34.6(HH) 10.0 - 20.0 ug/mL 04/28/2023 5:48 AM [facility] Blood BLOOD SPECIMEN / Unknown Lab Venipuncture / Unknown 04/28/2023 3:19 AM CDT 04/28/2023 5:00 AM CDT Narrative [facility] - 04/28/2023 5:48 AM CDT See institution protocol. Sameer Navarro MD LAB - CHEMISTRY DIVINA OLVERA [facility] [address] [place] [address], [place] [phone] * (ABNORMAL) GLUCOSE - POINT OF CARE (04/28/2023 12:09 AM CDT) Glucose WB/POC 128(H) 70 - 115 mg/dL 04/28/2023 12:17 AM CDT [facility] Specimen Type Cap Fingerstick 2022 12:17 AM CDT [facility] Blood BLOOD SPECIMEN / Unknown 04/28/2023 12:09 AM CDT 04/28/2023 12:17 AM CDT Sameer Navarro MD LAB - POINT OF CARE ORDERABLES [address] [address], [place] [phone] * (ABNORMAL) GLUCOSE - POINT OF CARE (04/27/2023 8:24 PM CDT) Glucose WB/POC 156(H) 70 - 115 mg/dL 04/27/2023 8:29 PM CDT [facility] Specimen Type Cap Fingerstick 2022 8:29 PM CDT [facility] Blood BLOOD SPECIMEN / Unknown 04/27/2023 8:24 PM CDT 04/27/2023 8:29 PM CDT Sameer Navarro MD LAB - POINT OF CARE ORDERABLES [facility] [address] [place] [address], [place] [phone] * (ABNORMAL) VANCOMYCIN LEVEL PEAK (04/27/2023 8:19 PM CDT) Vancomycin Peak 46.6(H) 25.0 - 40.0 ug/mL 04/27/2023 10:55 PM CDT [facility] Blood BLOOD SPECIMEN / Unknown Lab Venipuncture / Unknown 04/27/2023 8:19 PM CDT 04/27/2023 8:23 PM CDT Narrative [facility] - 04/27/2023 10:55 PM CDT See institution protocol. Data does not support the use of vancomycin peak concentration for efficacy. Sameer Navarro MD LAB - CHEMISTRY RAADE WADE [address] [address], [facility] [phone] * CULTURE BLOOD (04/27/2023 8:19 PM CDT) [facility] Culture No growth day 5 CHARLES 05/02/2023 10:[address] [facility] Blood PERIPHERAL BLOOD / Unknown Lab Venipuncture / Unknown 04/27/2023 8:19 PM CDT 04/27/2023 8:23 PM CDT Sameer Navarro MD LAB - MICROBIOLOGY O RDERABLES Performing Organization Address City/[facility]/ZIP Co de Phone Number [facility] [address] [place] [address], [facility] [phone] * (ABNORMAL) ERYTHROCYTE SEDIMENTATION RATE (04/27/2023 8:19 PM CDT) Pathologist [facility] Erythrocyte Sedimentation Rate Westergren 105(H) 0 - 20 MM/HR 04/27/2023 9:05 PM CDT [facility] Blood BLOOD SPECIMEN / Unknown Lab Venipuncture / Unknown 04/27/2023 8:19 PM CDT 04/27/2023 8:38 PM CDT Sameer Navarro MD LAB - HEMATOLOGY ORD ERABLES Performing Organization Address City/[facility]/ZIP Co de Phone Number [address] [address], [place] [phone] * (ABNORMAL) GLUCOSE - POINT OF CARE (04/27/2023 4:58 PM CDT) Glucose WB/POC 161(H) 70 - 115 mg/dL 04/27/2023 5:02 PM CDT [facility] Specimen Type Arterial 04/27/2023 5:02 PM CDT [facility] Blood BLOOD SPECIMEN / Unknown 04/27/2023 4:58 PM CDT 04/27/2023 5:02 PM CDT Sameer Navarro MD LAB - POINT OF CARE ORDERABLES [facility] [address] [place] [address], [place] [phone] * (ABNORMAL) GLUCOSE - POINT OF CARE (04/27/2023 12:01 PM CDT) Glucose WB/POC 153(H) 70 - 115 mg/dL 04/27/2023 12:05 PM CDT [facility] Specimen Type Arterial 04/27/2023 12:05 PM CDT [facility] Blood BLOOD SPECIMEN / Unknown 04/27/2023 12:01 PM CDT 04/27/2023 12:05 PM CDT Sameer Navarro MD LAB - POINT OF CARE ORDERABLES [facility] [address] [place] [address], [place] [phone] * RESPIRATORY PANEL WITH SARS-COV-2 BY PCR (STL) (04/27/2023 11:48 AM CDT) Adenovirus PCR Not detected Not detected 04/27/2023 4:27 PM CDT [facility] Coronavirus 229E PCR Not detected Not detected 04/27/2023 4:27 PM CDT [facility] Coronavirus HKU1 PCR Not detected Not detected 04/27/2023 4:27 PM CDT [facility] Coronavirus NL63 PCR Not detected Not detected 04/27/2023 4:27 PM CDT [facility] Coronavirus OC43 PCR Not detected Not detected 04/27/2023 4:27 PM CDT [facility] COVID-19 PCR Not detected Not detected 04/27/2023 4:27 PM CDT [facility] Human Metapneumovirus PCR Not detected Not detected 04/27/2023 4:27 PM CDT [facility] Human Rhinovirus/Enterov irus PCR Not detected Not detected 04/27/2023 4:27 PM CDT [facility] Influenza A PCR Not detected Not detected 04/27/2023 4:27 PM CDT [facility] Influenza B PCR Not detected Not detected 04/27/2023 4:27 PM CDT [facility] Parainfluenza Virus 1 PCR Not detected Not detected 04/27/2023 4:27 PM CDT [facility] Parainfluenza Virus 2 PCR Not detected Not detected 04/27/2023 4:27 PM CDT [facility] Parainfluenza Virus 3 PCR Not detected Not detected 04/27/2023 4:27 PM CDT [facility] Parainfluenza Virus 4 PCR Not detected Not detected 04/27/2023 4:27 PM CDT [facility] Respiratory Syncytial Virus PCR Not detected Not detected 04/27/2023 4:27 PM CDT [facility] Bordetella parapertussis PCR Not detected Not detected 04/27/2023 4:27 PM CDT [facility] Bordetella pertussis PCR Not detected Not detected 04/27/2023 4:27 PM CDT [facility] Chlamydia pneumoniae PCR Not detected Not detected 04/27/2023 4:27 PM CDT [facility] Mycoplasma pneumoniae PCR Not detected Not detected 04/27/2023 4:27 PM CDT [facility] Microbiology SPECIMEN FROM NASOPHARYNGEAL STRUCTURE / Unknown Collection / Unknown 04/27/2023 11:48 AM CDT 04/27/2023 11:58 AM CDT Narrative [facility] - 04/27/2023 4:27 PM CDT This nucleic amplification assay has received FDA authorization via the [employer]. Sameer Navarro MD LAB - MICROBIOLOGY O RDERABLES [facility] [address] [place] [address], [facility] [phone] * (ABNORMAL) GLUCOSE - POINT OF CARE (04/27/2023 8:36 AM CDT) Glucose WB/POC 141(H) 70 - 115 mg/dL 04/27/2023 8:40 AM CDT [facility] Specimen Type Arterial 04/27/2023 8:40 AM CDT [facility] Blood BLOOD SPECIMEN / Unknown 04/27/2023 8:36 AM CDT 04/27/2023 8:40 AM CDT Sameer Navarro MD LAB - POINT OF CARE ORDERABLES [facility] [address] [place] [address], [facility] [phone] * (ABNORMAL) HEMOGLOBIN A1C (04/27/2023 7:30 AM CDT) Hemoglobin A1c 6.7(H) <=5.6 % 04/27/2023 5:04 PM CDT [facility] Estimated Average Glucose 146 mg/dL 04/27/2023 5:04 PM CDT [facility] Comment: HbA1c Interpretation: Normal : < 5.7% Pre-diabetes: 5.7-6.4% Diabetes: Equal to or greater than 6.5% Test results diagnostic of diabetes should be repeated for confirmation. Treatment target values recommended by ADA and other clinical organizations should be used to evaluate metabolic control in patients. Reference: [place] [employer], Standards of Care in Diabetes -2020 In patients 70 years and older consider HbA1c target range of 7.0-7.5% (Reference: Anthony Dillard et al. JAMDA. 2012) The Sebia assay for the measurement of HbA1c is a National Glycohemoglobin Standardization Program (NGSP) certified method. Blood BLOOD SPECIMEN / Unknown Lab Venipuncture / Unknown 04/27/2023 7:30 AM CDT 04/27/2023 7:40 AM CDT Sameer Navarro MD LAB - CHEMISTRY DIVINA OLVERA Performing Organization Address City/[facility]/ZIP Co de Phone Number [facility] [address] [place] [address], [place] [phone] * CULTURE BLOOD (04/27/2023 7:29 AM CDT) Pathologist [facility] Culture No growth day 5 CHARLES 05/02/2023 10:[address] [facility] Blood PERIPHERAL BLOOD / Unknown Lab Venipuncture / Unknown 04/27/2023 7:29 AM CDT 04/27/2023 7:37 AM CDT Sameer Navarro MD LAB - MICROBIOLOGY O RDERABLES Performing Organization Address [facility] Co de Phone Number [facility] [address] [place] [address], [facility] [phone] * HIV-1 HIV-2 ANTIBODY + HIV P24 AG PANEL (04/27/2023 7:29 AM CDT) Pathologist [facility] HIV Antigen/Antibod y 1 & 2 Non-reacti ve Non-react talia 04/27/2023 8:28 AM CDT [facility] Comment:No Laboratory eviden ce of HIV infection. Blood BLOOD SPECIMEN / Unknown Lab Venipuncture / Unknown 04/27/2023 7:29 AM CDT 04/27/2023 7:38 AM CDT Sameer Navarro MD LAB - CHEMISTRY DIVINA OLVERA Performing Organization Address City/[facility]/ZIP Co de Phone Number [facility] [address] [place] [address], [place] [phone] * HEPATITIS C AB SCREEN RFLX NAAT QUANT (04/27/2023 7:29 AM CDT) Pathologist [facility] Hepatitis C Antibody Non-react talai Non-reac tive 04/27/2023 8:28 AM CDT [facility] Comment:Hepatitis C Antibody screen indicates no [...] / Unknown 04/27/2023 7:29 AM CDT 04/27/2023 7:38 AM CDT Sameer Navarro MD LAB - CHEMISTRY DIVINA OLVERA [facility] [place] Organization Address City/State/ZIP Co de Phone Number [facility] [address] [place] [address], [facility] [phone] * (ABNORMAL) CBC W/O DIFFERENTIAL (04/27/2023 7:29 AM CDT) WBC 13.8(H) 3.5 - 10.5 10? 3 /uL 04/27/2023 7:58 AM [facility] RBC 2.96(L) 3.80 - 5.20 10? 6 /uL 04/27/2023 7:58 AM [facility] Hemoglobin 7.7(L) 12.0 - 15.6 g/dL 04/27/2023 7:58 AM [facility] Hematocrit 25.7(L) 35.0 - 45.0 % 04/27/2023 7:58 AM [facility] MCV 86.8 80.7 - 98.3 fL 04/27/2023 7:58 AM [facility] MCH 26.0(L) 26.7 - 34.0 pg 04/27/2023 7:58 AM [facility] MCHC 30.0(L) 30.8 - 35.9 g/dL 04/27/2023 7:58 AM [facility] RDW-SD 56.0(H) 36.0 - 50.0 fL 04/27/2023 7:58 AM [facility] RDW-CV 17.9(H) 11.2 - 14.8 % 04/27/2023 7:58 AM [facility] Platelet Count 574(H) 150 - 400 10? 3 /uL 04/27/2023 7:58 AM CDT [facility] MPV 8.9(L) 9.4 - 12.9 fL 04/27/2023 7:58 AM CDT [facility] nRBC Absolute 0.02(H) 0 10? 3 /uL 04/27/2023 7:58 AM CDT [facility] nRBC Auto 0.1(H) 0 /100 WBC 04/27/2023 7:58 AM CDT [facility] Blood BLOOD SPECIMEN / Unknown Lab Venipuncture / Unknown 04/27/2023 7:29 AM CDT 04/27/2023 7:40 AM CDT Sameer Navarro MD LAB - HEMATOLOGY ORD ERABLES Performing Organization Address City/[facility]/ZIP Co de Phone Number [address] [address], [place] [phone] * (ABNORMAL) MAGNESIUM BLOOD (04/27/2023 7:29 AM CDT) Magnesium 1.5(L) 1.6 - 2.6 mg/dL 04/27/2023 8:08 AM CDT [facility] Blood BLOOD SPECIMEN / Unknown Lab Venipuncture / Unknown 04/27/2023 7:29 AM CDT 04/27/2023 7:40 AM CDT Sameer Navarro MD LAB - CHEMISTRY ORDE WADE [address] [address], [place] [phone] * (ABNORMAL) RENAL FUNCTION PANEL (04/27/2023 7:29 AM CDT) BUN 12 7 - 26 mg/dL 04/27/2023 8:08 AM T [facility] Creatinine 1.18(H) 0.56 - 0.96 mg/dL 04/27/2023 8:08 AM CDT [facility] Sodium 144 136 - 145 mmol/L 04/27/2023 8:08 AM T [facility] Potassium 3.7 3.5 - 4.5 mmol/L 04/27/2023 8:08 AM [facility] Chloride 107 98 - 107 mmol/L 04/27/2023 8:08 AM [facility] CO2 33(H) 22 - 29 mmol/L 04/27/2023 8:08 AM [facility] Glucose 137(H) 70 - 115 mg/dL 04/27/2023 8:08 AM [facility] Albumin 1.2(L) 3.4 - 5.0 g/dL 04/27/2023 8:08 AM [facility] Calcium 7.8(L) 8.4 - 10.2 mg/dL 04/27/2023 8:08 AM [facility] Phosphorus 3.0 2.9 - 5.1 mg/dL 04/27/2023 8:08 AM [facility] Anion Gap 8 8 - 18 04/27/2023 8:08 AM [facility] BUN/Creatinine Ratio 10 7 - 23 04/27/2023 8:08 AM [facility] Osmolality Calculated 300 270 - 300 mOsm/kg 04/27/2023 8:08 AM [facility] eGFR by CKD-EPI 64(L) >=90 mL/min/1.7 3 m2 04/27/2023 8:08 AM [facility] Blood BLOOD SPECIMEN / Unknown Lab Venipuncture / Unknown 04/27/2023 7:29 AM CDT 04/27/2023 7:40 AM T Sameer Navarro MD [facility] Organization Address City/State/ZIP Co de Phone Number [facility] [address] [place] [address], [facility] [phone] * (ABNORMAL) VANCOMYCIN LEVEL PEAK (04/27/2023 7:29 AM CDT) Vancomycin Peak 42.0(H) 25.0 - 40.0 ug/mL 04/27/2023 8:09 AM [facility] Blood BLOOD SPECIMEN / Unknown Lab Venipuncture / Unknown 04/27/2023 7:29 AM CDT 04/27/2023 7:38 AM CDT Narrative [facility] - 04/27/2023 8:09 AM CDT See institution protocol. Data does not support the use of vancomycin peak concentration for efficacy. Sameer Navarro MD LAB - CHEMISTRY [place] [address] [address], [place] [phone] * (ABNORMAL) C-REACTIVE PROTEIN (04/27/2023 7:29 AM CDT) C-Reactive Protein 2.4(H) <=0.5 mg/dL 04/27/2023 8:09 AM CDT [facility] Blood BLOOD SPECIMEN / Unknown Lab Venipuncture / Unknown 04/27/2023 7:29 AM CDT 04/27/2023 7:38 AM CDT Sameer Navarro MD LAB - CHEMISTRY [place] [address] [address], [place] [phone] * (ABNORMAL) CK BLOOD (04/27/2023 7:29 AM CDT) CK Total 1,624(H) 30 - 200 U/L 04/27/2023 8:08 AM CDT [facility] Blood BLOOD SPECIMEN / Unknown Lab Venipuncture / Unknown 04/27/2023 7:29 AM CDT 04/27/2023 7:40 AM CDT Sameer Navarro MD LAB - CHEMISTRY [place] [address] [address], [place] [phone] * (ABNORMAL) GLUCOSE - POINT OF CARE (04/27/2023 6:05 AM CDT) Glucose WB/POC 139(H) 70 - 115 mg/dL 04/27/2023 6:06 AM CDT [facility] [facility] Specimen Type Cap Fingerstick 2022 6:06 AM CDT [facility] Blood BLOOD SPECIMEN / Unknown 04/27/2023 6:05 AM CDT 04/27/2023 6:05 AM CDT Sameer Navarro MD LAB - POINT OF CARE ORDERABLES [facility] [address] [place] [address], [facility] [phone] * XR CHEST 1VW PORTABLE (04/27/2023 5:42 AM CDT) Anatomical Region Laterality Modality Chest Radiographic Nissa ging 04/27/2023 7:22 AM CDT Narrative 04/27/2023 11:13 AM CDT PROCEDURE: ??XR CHEST 1VW PORTABLE, DATE/TIME OF EXAM: ??04/27/2023 5:51 AM, LOCATION ??[facility] INDICATION: E11.621: Diabetic ulcer of left heel associated with type 2 diabetes mellitus, unspecified ulcer stage (CMS/HCC) L97.429: Diabetic ulcer of left heel associated with type 2 diabetes mellitus, unspecified ulcer stage (CMS/HCC) ADDITIONAL CLINICAL INFORMATION: Ordering Provider Reason For Exam: ??baseline cxr COMPARISON: Chest x-ray from 04/26/2023. FINDINGS/IMPRESSION: Right upper extremity PICC terminating in superior vena cava. Diffuse interstitial and airspace opacities compatible with pulmonary edema or pneumonia. No pneumothorax. Cardiac silhouette is enlarged. > Dictated by Dante Schultz MD (vice president marketing & development). I, Xander De Guzman MD have personally reviewed and interpreted this examination/study. > Interpreting Provider: Xander De Guzman MD on 04/27/2023 11:13 AM Procedure Note Xander De Guzman MD - 04/27/2023 PROCEDURE: XR CHEST 1VW PORTABLE, DATE/TIME OF EXAM: 04/27/2023 5:51AM, LOCATION [facility] INDICATION: E11.621: Diabetic ulcer of left heel associated with type 2 diabetes mellitus, unspecified ulcer stage ([facility]/HCC) L97.429: Diabetic ulcer of left heel associated with type 2 diabetes mellitus, unspecified ulcer stage ([facility]/HCC) ADDITIONAL CLINICAL INFORMATION: Ordering Provider Reason For Exam: baseline cxr COMPARISON: Chest x-ray from 04/26/2023. FINDINGS/IMPRESSION: Right upper extremity PICC terminating in superior vena cava. Diffuse interstitial and airspace opacities compatible with pulmonaryedema or pneumonia. No pneumothorax. Cardiac silhouette is enlarged. > Dictated by Dante Schultz MD (vice president marketing & development). I, Xander De Guzman MD have personally reviewed and interpreted this examination/study. > Interpreting Provider: Xander De Guzman MD on 04/27/2023 11:13 AM Sameer Navarro MD DIAGNOSTIC IMAGING O RDERABLES * (ABNORMAL) GLUCOSE - POINT OF CARE (04/27/2023 12:51 AM CDT) Glucose WB/POC 175(H) 70 - 115 mg/dL 04/27/2023 1:00 AM CDT [facility] Specimen Type Cap Fingerstick 2022 1:00 AM CDT [facility] Blood BLOOD SPECIMEN / Unknown 04/27/2023 12:51 AM CDT 04/27/2023 1:00 AM CDT Sameer Navarro MD LAB - POINT OF CARE ORDERABLES Performing Organization Address City/State/[facility] Co de Phone Number [facility] [address] [place] [address], [facility] [phone] * (ABNORMAL) GLUCOSE - POINT OF CARE (04/26/2023 8:20 PM CDT) Glucose WB/POC 152(H) 70 - 115 mg/dL 04/26/2023 8:25 PM CDT [facility] Specimen Type Cap Fingerstick 2022 8:25 PM CDT [facility] Blood BLOOD SPECIMEN / Unknown 04/26/2023 8:20 PM CDT 04/26/2023 8:24 PM CDT Sameer Navarro MD LAB - POINT OF CARE ORDERABLES [address] [address], [place] [phone] * (ABNORMAL) GLUCOSE - POINT OF CARE (04/26/2023 4:06 PM CDT) Glucose WB/POC 117(H) 70 - 115 mg/dL 04/26/2023 4:11 PM CDT [facility] Specimen Type Arterial 04/26/2023 4:11 PM CDT [facility] Blood BLOOD SPECIMEN / Unknown 04/26/2023 4:06 PM CDT 04/26/2023 4:11 PM CDT Sameer Navarro MD LAB - POINT OF CARE ORDERABLES [address] [address], [place] [phone] * XR FOOT RIGHT 2VW (04/26/2023 1:47 PM CDT) Anatomical Region Laterality Modality Ankle / Foot Radiographic Nissa ging 04/26/2023 2:42 PM CDT Narrative 04/26/2023 5:41 PM CDT PROCEDURE: ??XR FOOT RIGHT 2VW, DATE/TIME OF EXAM: ??04/26/2023 1:47 PM, LOCATION ??[facility] INDICATION: E11.621: 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, unspecified ulcer stage ([facility]/HCC) L97.419: 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, unspecified ulcer stage ([facility]) ADDITIONAL CLINICAL INFORMATION: Ordering Provider Reason [...] president marketing & development) 04/26/2023 2:42 PM. Xander Kim MD have personally reviewed and interpreted this examination/study. > Interpreting Provider: Xander De Guzman MD on 04/26/2023 5:41 PM Procedure Note Xander De Guzman MD - 04/26/2023 PROCEDURE: XR FOOT RIGHT 2VW, DATE/TIME OF EXAM: 04/26/2023 1:47 PM, LOCATION [facility] INDICATION: E11.621: Diabetic ulcer of right heel [...] (vice president marketing & development) 32:42 PM. Xander Kim MD have personally reviewed and interpreted this examination/study. > Interpreting Provider: Xander De Guzman MD on 04/26/2023 5:41 PM Sameer Navarro MD DIAGNOSTIC IMAGING O RDERABLES * EKG 12-LEAD (04/26/2023 11:39 AM CDT) Ventricular Rate 88 BPM [facility] MUSE Atrial Rate 88 BPM [facility] P-R Interval 158 ms [facility] MUSE QRS Duration ms 80 ms [facility] MUSE Q-T Interval ms 374 ms [facility] MUSE QTC Calculation (Bezet) 452 ms [facility] MUSE Calculated P Procious 44 degrees [facility] MUSE Calculated R Procious -2 degrees [facility] MUSE Calculated T Procious 17 degrees [facility] MUSE Interpretation EKG NORMAL SINUS RHYTHM NONSPECIFIC T WAVE ABNORMALITY ABNORMAL ECG WHEN COMPARED WITH ECG OF 03-DEC-2022 03:00, NO SIGNIFICANT CHANGE WAS FOUND Confirmed by JOSE HIGGINS MD ([id number]) on 04/28/2023 10:48:39 AM [facility] MUSE 04/26/2023 11:3 9 AM CDT 04/28/2023 10:48 AM CDT Sameer Navarro MD ECG ORDERABLES [facility] MUSE * (ABNORMAL) GLUCOSE - POINT OF CARE (04/26/2023 11:37 AM CDT) Glucose WB/POC 130(H) 70 - 115 mg/dL 04/26/2023 11:42 AM CDT [facility] Specimen Type Arterial 04/26/2023 11:42 AM CDT [facility] Blood BLOOD SPECIMEN / Unknown 04/26/2023 11:37 AM CDT 04/26/2023 11:42 AM CDT Sameer Navarro MD LAB - POINT OF CARE ORDERABLES Performing Organization Address City/[facility]/ZIP Co de Phone Number [facility] [address] [place] [address], [facility] [phone] * XR CHEST 1VW PORTABLE (04/26/2023 8:51 AM CDT) Anatomical Region Laterality Modality Chest Radiographic Nissa ging 04/26/2023 9:07 AM CDT Narrative 04/26/2023 5:15 PM CDT PROCEDURE: ??XR CHEST 1VW PORTABLE, DATE/TIME OF EXAM: ??04/26/2023 8:51 AM, LOCATION ??[facility] INDICATION: E11.621: Diabetic ulcer of left heel associated with type 2 diabetes mellitus, unspecified ulcer stage (CMS/HCC) L97.429: Diabetic ulcer of left heel associated with type 2 diabetes mellitus, unspecified ulcer stage (CMS/HCC) ADDITIONAL CLINICAL INFORMATION: Ordering Provider Reason For Exam: ??PICC placement COMPARISON: Chest x-ray from 12/02/2022 FINDINGS/IMPRESSION: Interval placement of right Upper extremity PICC line terminating in the right atrium. There is redemonstration of cardiomegaly. There are prominent and intervally increased interstitial opacities, right greater than left likely representing pulmonary edema in setting of cardiomegaly. There is probable trace volume pleural effusions bilaterally. There is no pneumothorax identified. Report dictated by Golden Kiser DO(vice president marketing & development). Xander Kim MD have personally reviewed and interpreted this examination/study. > Interpreting Provider: Xander De Guzman MD on 04/26/2023 5:15 PM Procedure Note Xander De Guzman MD - 04/26/2023 PROCEDURE: XR CHEST 1VW PORTABLE, DATE/TIME OF EXAM: 04/26/2023 8:51AM, LOCATION [facility] INDICATION: E11.621: Diabetic ulcer of left heel associated with type 2 diabetes mellitus, unspecified ulcer stage (CMS/HCC) L97.429: Diabetic ulcer of left heel associated with type 2 diabetes mellitus, unspecified ulcer stage (CMS/HCC) ADDITIONAL CLINICAL INFORMATION: Ordering Provider Reason For Exam: PICC placement COMPARISON: Chest x-ray from 12/02/2022 FINDINGS/IMPRESSION: Interval placement of right Upper extremity PICC line terminating in the right atrium. There is redemonstration of cardiomegaly. There areprominent and intervally increased interstitial opacities, right greater than left likely representing pulmonary edema in setting of cardiomegaly. There is probable trace volume pleural effusions bilaterally. There is no pneumothorax identified. Report dictated by Golden Kiser DO(vice president marketing & development). Xander Kim MD have personally reviewed and interpreted this examination/study. > Interpreting Provider: Xander De Guzman MD on 04/26/2023 5:15 PM Sameer Navarro MD DIAGNOSTIC IMAGING O RDERABLES * (ABNORMAL) GLUCOSE - POINT OF CARE (04/26/2023 8:36 AM CDT) Glucose WB/POC 130(H) 70 - 115 mg/dL 04/26/2023 8:40 AM CDT [facility] Specimen Type Arterial 04/26/2023 8:40 AM CDT [facility] Blood BLOOD SPECIMEN / Unknown 04/26/2023 8:36 AM CDT 04/26/2023 8:40 AM CDT Sameer Navarro MD LAB - POINT OF CARE ORDERABLES Performing Organization Address [facility]/ZIP Co de Phone Number [address] [address], [facility] [phone] * PTT [facility] (04/26/2023 6:29 AM CDT) APTT 29.8 23.0 - 38.4 Seconds 04/26/2023 7:17 AM T [facility] Comment:Suggested therapeuti c range for full dose I.V. unfractionated heparin therapy for venous thromboembolism is 71 to 109 seconds. Blood BLOOD SPECIMEN / Unknown Lab Venipuncture / Unknown 04/26/2023 6:29 AM CDT 04/26/2023 6:54 AM CDT Sameer Navarro MD LAB - COAGULATION OR DERABLES Performing Organization Address [facility] Co de Phone Number [address] [address], [facility] [phone] * (ABNORMAL) PT-INR [facility] (04/26/2023 6:29 AM CDT) PT 16.3(H) 12.1 - 14.8 Seconds 04/26/2023 7:17 AM T [facility] INR 1.3 See Comment 04/26/2023 7:17 AM T [facility] Comment:The suggested therap eutic range for standard coumadin (warfarin) therapy is an INR of 2.0-3.0. For high-risk patients (Mechanical Mitral Valve Prosthesis, etc.), the suggested prophylactic therapeutic range is an INR of 2.5-3.5. Blood BLOOD SPECIMEN / Unknown Lab Venipuncture / Unknown 04/26/2023 6:29 AM CDT 04/26/2023 6:54 AM CDT Sameer Navarro MD LAB - COAGULATION OR DERABLES Performing Organization Address City/[facility]/ZIP Co de Phone Number [address] [address], [facility] [phone] * PHOSPHORUS BLOOD (04/26/2023 6:29 AM CDT) Phosphorus 2.9 2.9 - 5.1 mg/dL 04/26/2023 7:21 AM CDT [facility] Blood BLOOD SPECIMEN / Unknown Lab Venipuncture / Unknown 04/26/2023 6:29 AM CDT 04/26/2023 6:54 AM CDT Sameer Navarro MD LAB - CHEMISTRY DIVINA OLVERA Performing Organization Address [facility] Co de Phone Number [address] [address], [facility] [phone] * (ABNORMAL) MAGNESIUM BLOOD (04/26/2023 6:29 AM CDT) Pathologist [facility] Magnesium 1.4(L) 1.6 - 2.6 mg/dL 04/26/2023 7:21 AM CDT [facility] Blood BLOOD SPECIMEN / Unknown Lab Venipuncture / Unknown 04/26/2023 6:29 AM CDT 04/26/2023 6:54 AM CDT Sameer Navarro MD LAB - CHEMISTRY DIVINA OLVERA Performing Organization Address City/[facility]/ZIP Co de Phone Number [address] [address], [facility] [phone] * (ABNORMAL) CBC W/O DIFFERENTIAL (04/26/2023 6:29 AM CDT) WBC 15.5(H) 3.5 - 10.5 10? 3 /uL 04/26/2023 7:10 AM CDT [facility] RBC 3.01(L) 3.80 - 5.20 10? 6 /uL 04/26/2023 7:10 AM [facility] Hemoglobin 7.7(L) 12.0 - 15.6 g/dL 04/26/2023 7:10 AM [facility] Hematocrit 25.9(L) 35.0 - 45.0 % 04/26/2023 7:10 AM [facility] MCV 86.0 80.7 - 98.3 fL 04/26/2023 7:10 AM [facility] MCH 25.6(L) 26.7 - 34.0 pg 04/26/2023 7:10 AM [facility] MCHC 29.7(L) 30.8 - 35.9 g/dL 04/26/2023 7:10 AM [facility] RDW-SD 52.9(H) 36.0 - 50.0 fL 04/26/2023 7:10 AM [facility] RDW-CV 17.4(H) 11.2 - 14.8 % 04/26/2023 7:10 AM [facility] Platelet Count 549(H) 150 - 400 10? 3 /uL 04/26/2023 7:10 AM [facility] MPV 8.9(L) 9.4 - 12.9 fL 04/26/2023 7:10 AM [facility] nRBC Absolute 0.00 0 10? 3 /uL 04/26/2023 7:10 AM [facility] nRBC Auto 0.0 0 /100 WBC 04/26/2023 7:10 AM [facility] Blood BLOOD SPECIMEN / Unknown Lab Venipuncture / Unknown 04/26/2023 6:29 AM CDT 04/26/2023 6:54 AM CDT Sameer Navarro MD LAB - HEMATOLOGY ORD ERABLES [facility] [address] [place] [address], [facility] [phone] * LACTIC ACID BLOOD (04/26/2023 6:29 AM CDT) Lactic Acid-Stat 0.6 <=2.0 mmol/L 04/26/2023 7:18 AM [facility] Blood BLOOD SPECIMEN / Unknown Lab Venipuncture / Unknown 04/26/2023 6:29 AM CDT 04/26/2023 6:53 AM CDT Sameer Navarro MD LAB - CHEMISTRY DIVINA OLVERA [facility] [place] Organization Address [facility] Co de Phone Number [facility] [address] [place] [address] [phone] * (ABNORMAL) COMPREHENSIVE METABOLIC PANEL (04/26/2023 6:29 AM CDT) BUN 13 7 - 26 mg/dL 04/26/2023 7:21 AM [facility] Creatinine 1.22(H) 0.56 - 0.96 mg/dL 04/26/2023 7:21 AM [facility] Sodium 142 136 - 145 mmol/L 04/26/2023 7:21 AM [facility] Potassium 3.6 3.5 - 4.5 mmol/L 04/26/2023 7:21 AM [facility] Chloride 104 98 - 107 mmol/L 04/26/2023 7:21 AM [facility] CO2 31(H) 22 - 29 mmol/L 04/26/2023 7:21 AM [facility] Glucose 133(H) 70 - 115 mg/dL 04/26/2023 7:21 AM [facility] Calcium 7.7(L) 8.4 - 10.2 mg/dL 04/26/2023 7:21 AM [facility] Protein Total 5.4(L) 6.0 - 8.3 g/dL 04/26/2023 7:21 AM [facility] Albumin 1.3(L) 3.4 - 5.0 g/dL 04/26/2023 7:21 AM [facility] Bilirubin Total 0.3 0.2 - 1.2 mg/dL 04/26/2023 7:21 AM [facility] Alkaline Phosphatase 203(H) 40 - 150 U/L 04/26/2023 7:21 AM [facility] ALT 43 5 - 55 U/L 04/26/2023 7:21 AM [facility] AST 78(H) 5 - 34 U/L 04/26/2023 7:21 AM [facility] Anion Gap 11 8 - 18 04/26/2023 7:21 AM [facility] BUN/Creatinine Ratio 11 7 - 23 04/26/2023 7:21 AM [facility] Osmolality Calculated 296 270 - 300 mOsm/kg 04/26/2023 7:21 AM [facility] Albumin/Globulin Ratio 0.3(L) 1.1 - 2.3 04/26/2023 7:21 AM [facility] eGFR by CKD-EPI 61(L) >=90 mL/min/1.7 3 m2 04/26/2023 7:21 AM [facility] Blood BLOOD SPECIMEN / Unknown Lab Venipuncture / Unknown 04/26/2023 6:29 AM CDT 04/26/2023 6:54 AM [facility] Sameer Navarro MD LAB - CHEMISTRY DIVINA OLVERA [facility] [place] Organization Address City/State/ZIP Co de Phone Number [facility] [address] [place] [address], [facility] [phone] documented in this encounter Visit Diagnoses Diagnosis Diabetic ulcer of left heel associated with type 2 diabetes mellitus, unspecified ulcer stage (HCC)- Primary Chronic diastolic congestive heart failure (HCC) Chronic diastolic heart failure 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, unspecified ulcer stage (HCC) Left foot infection Unspecified local infection of skin and subcutaneous tissue Other chronic osteomyelitis of right foot (HCC) 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 (HCC) CHF (congestive heart failure) (HCC) Congestive heart failure, unspecified S/P AKA (above knee amputation) unilateral, left (HCC) Anemia Anemia, unspecified documented in this encounter Administered Medications Inactive Administered Medications - up to 3 most recent administrations Medication Order MAR Action Action Date Dose Rate Site 0.9% NaCl injection 1-10 mL 1-10 mL, Intracatheter, PRN, Other, peripheral line flush, Starting on 04/26/23 at 0504, Until Fri05/09/23 at 1814, Flush peripheral IV catheter with 1-10 mL of normal saline before and after medications and prn to clear blood from the line or to verify patency. 0.9% NaCl injection 3 mL 3 mL, Intracatheter, EVERY 8 HOURS, First dose on 04/26/23 at 0600, Until Discontinued, Flush peripheral IV catheter with 3 mL of normal saline every 8 hours. $ Given 05/09/2023 1:05 PM CDT 3 mL $ Given 05/09/2023 6:35 AM CDT 3 mL $ Given 05/08/2023 9:15 PM CDT 3 mL acetaminophen (Tylenol) tablet 1,000 mg 1,000 mg, Oral, 3 TIMES DAILY, First dose on 04/26/23 at 0900, Until Discontinued, Patient preference for lesser PRN pain meds may be honored when the patient requests a less strong medication, a lower dose, or a less intrusive route of administration when the lesser drug, dose and route have been ordered for the patient. This patient request must be documented in the MAR. $ Given 05/08/2023 8:31 AM CDT 1,000 mg $ Given 05/06/2023 1:36 PM CDT 1,000 mg $ Given 05/06/2023 8:16 AM CDT 1,000 mg amLODIPine (Norvasc) tablet 10 mg 10 mg, Oral, DAILY, First dose on 04/26/23 at 0900, Until Discontinued $ Given 05/09/2023 8:12 AM CDT 10 mg $ Given 05/08/2023 8:32 AM CDT 10 mg $ Given 05/07/2023 9:27 AM CDT 10 mg carvedilol (Coreg) tablet 12.5 mg 12.5 mg, Oral, 2 TIMES DAILY WITH MEALS, First dose on 04/26/23 at 0800, Until Discontinued, Take with food $ Given 05/02/2023 8:54 AM CDT 12.5 mg $ Given 05/01/2023 6:04 PM CDT 12.5 mg $ Given 05/01/2023 8:44 AM CDT 12.5 mg carvedilol (Coreg) tablet 25 mg 25 mg, Oral, 2 TIMES DAILY WITH MEALS, First dose (after last modification) on Fri05/02/23 at 1800, Until Discontinued, Take with food $ Given 05/09/2023 8:12 AM CDT 25 mg $ Given 05/08/2023 5:55 PM CDT 25 mg $ Given 05/08/2023 8:31 AM CDT 25 mg cefTRIAXone (Rocephin) 2,000 mg in 0.9% NaCl IV 50 mL IVPB 2,000 mg (2 g), at 100 mL/hr, Intravenous, EVERY 24 HOURS, First dose on Fri04/27/23 at 0745, Until Discontinued, Ceftriaxone can cause precipitation when administered with calcium-containing fluids, including LR. Flush lines with a compatible fluid, such as D5W or NS before and after ceftriaxone dose. Admin through separate lumens is acceptable. , Indication for anti-infective therapy: Documented infection, Site of anti-infective therapy: Bone/Joint, Skin/soft tissue $ New Bag/Syringe 05/09/2023 11:52 AM CDT 2,000 mg 100 mL/hr $ New Bag/Syringe 05/08/2023 12:03 PM CDT 2,000 mg 100 m L/hr $ New Bag/Syringe 05/07/2023 12:43 PM CDT 2,000 mg 100 m L/hr DAPTOmycin (Cubicin) 500 mg in 0.9% NaCl IV 60 mL IVPB 500 mg, at 120 mL/hr, Intravenous, EVERY 24 HOURS, First dose on Fri04/26/23 at 0700, Until Discontinued, Indication for anti-infective therapy: Documented infection, Site of anti-infective therapy: Bone/Joint, Skin/soft tissue $ New Bag/Syringe 04/26/2023 1:46 PM CDT 500 mg 120 mL/hr dextrose 10 % IV bolus 12.5 g, at 468.75 mL/hr, Intravenous, PRN, Other, Bedside Glucose less than 70 mg/dL -If NOT able to eat and/or NPO and with IV Access, Starting on Fri04/26/23 at 0528, Until Fri05/09/23 at 1814, If NOT able to eat and/or NPO [...] NPO and with IV Access, Starting on Fri04/26/23 at 0528, Until Fri05/09/23 at 1814, If NOT able to eat and/or NPO [...] IV STAT NOTIFY PROVIDER OF HYPOGLYCEMIC EVENT. diphenhydrAMINE (Benadryl) injection 25 mg 25 mg, Intravenous, ONCE, 1 dose, On Fri04/30/23 at 1415, Administer IV at a rate not exceeding 25 mg/min. Can dilute in 5-10 mL NS as needed for patient comfort. $ Given 04/30/2023 2:00 PM CDT 25 mg ferrous sulfate tablet 325 mg 325 mg, Oral, EVERY FRI, FRI AND FRI, First dose on Fri05/09/23 at 0900, Until Discontinued $ Given 05/09/2023 8:12 AM CDT 325 mg furosemide (Lasix) tablet 40 mg 40 mg, Oral, DAILY, First dose on Fri04/26/23 at 0900, Until Discontinued $ Given 05/02/2023 8:54 AM CDT 40 mg $ Given 05/01/2023 8:44 AM CDT 40 mg $ Given 04/30/2023 9:06 AM CDT 40 mg gadobutrol (Gadavist) injection Intravenous, CONTRAST ONCE, Starting on Fri04/28/23 at 0548, Until Fri04/30/23 at 0547 $ Given - Contrast 04/28/2023 5:48 AM CDT 10 mL gadobutrol (Gadavist) injection Intravenous, CONTRAST ONCE, Starting on Fri04/29/23 at 0708, Until Heide 05/01/23 at 0707 $ Given - Contrast 04/29/2023 7:09 AM CDT 10 mL glucagon (Glucagen) injection 1 mg 1 mg, Subcutaneous, PRN, Bedside Glucose less than 70 mg/dL - If NOT able to eat and/or NPO and withOUT IV Access, Starting on 04/26/23 at 0528, Until 05/09/23 at 1814, If NOT able to eat and/or NPO and NO IV Access: For Bedside glucose 54-69 mg/dL - Give 1 mg subcutaneous For Bedside Glucose LESS than 54 mg/dl - verify with a second bedside glucose (from a different site) - Give 1 mg subcutaneous Re-check and Re-treat blood glucose EVERY 10-25 minutes until blood glucose GREATER than or equal to 80 mg/dl. NOTIFY PROVIDER OF HYPOGLYCEMIC EVENT. Reconstitute vial with 1 mL of sterile water for injection for a final concentration of 1 mg/mL; shake vial gently; use immediately and discard unused portion glucose (Diabetic Use) (Dex4 Glucose) oral liquid Oral, PRN, Other, Bedside Glucose less than 70 mg/dL -If able to eat and does not have swallowing difficulties, Starting on 04/26/23 at 0528, Until Fri05/09/23 at 1814, If able to eat and can swallow thin liquids: For Bedside Glucose 54 - 69 mg/dL Give 15 grams of oral carbohydrates - 1 glucose liquid (see MAR) If patient refuses glucose liquid, then offer: - 4 ounces of fruit juice OR - 4 ounces non-diet soda OR - 8 ounces of fat-free milk For Bedside Glucose LESS than 54 mg/dL - verify with a second Bedside Glucose (from a different site) - If pt is symptomatic, do not delay treatment - If accuracy of the POC glucose is in question, confirm glucose with a STAT laboratory test. Give 30 grams of oral carbohydrates - 2 glucose liquid (see MAR) If patient refuses glucose liquid, then offer: - 8 ounces of fruit juice OR - 8 ounces non-diet soda OR - 16 ounces of fat-free milk Re-check and Re-treat blood glucose EVERY 10-25 minutes until blood glucose GREATER than or equal to 80 mg/dl. - If on recheck, bedside glucose 54-79 mg/dL - Give 15 grams of oral carbohydrates (see above for choices) NOTIFY PROVIDER OF HYPOGLYCEMIC EVENT. glucose (Diabetic Use) oral gel Oral, PRN, Other, Bedside Glucose less than 70 mg/dL -If able to eat and does not have swallowing difficulties, Starting on 04/26/23 at 0528, Until Fri05/09/23 at 1814, If able to eat and is better able to swallow gel: For Bedside Glucose 54 - 69 mg/dL [...] for choices) NOTIFY PROVIDER OF HYPOGLYCEMIC EVENT. glucose chew tablet 4 tablet 4 tablet (16 g), Oral, PRN, Other, Bedside Glucose less than 70 mg/dL -If able to eat and does not have swallowing difficulties, Starting on 04/26/23 at 0528, Until Fri05/09/23 at 1814, If able to eat and does not have swallowing difficulties: For Bedside Glucose 54 - 69 mg/dL Give 16 grams of oral carbohydrates - 4 glucose tabs (see MAR) If patient refuses glucose tabs, then offer: - 4 ounces of fruit juice OR - 4 ounces non-diet soda OR - 8 ounces of fat-free milk For Bedside Glucose LESS than 54 mg/dL - verify with a second Bedside Glucose (from a different site) - If pt is symptomatic, do not delay treatment - If accuracy of the POC glucose is in question, confirm glucose with a STAT laboratory test. Give 32 grams of oral carbohydrates - 8 glucose tabs (see MAR) If patient refuses glucose gel, [...] grams of oral carbohydrates (see above for choices). NOTIFY PROVIDER OF HYPOGLYCEMIC EVENT. heparin injection 7,500 Units 7,500 Units, Subcutaneous, EVERY 8 HOURS, First dose on 04/27/23 at 0915, Until Discontinued $ Given 05/09/2023 8:12 AM CDT 7,500 Units Abdominal Tissue $ Given 05/09/2023 12:42 AM CDT 7,500 Units Left Arm $ Given 05/08/2023 8:32 AM CDT 7,500 Units A bdominal Tissue insulin lispro (HumaLOG;ADMelog) 100 UNIT/ML pen 0-6 Units 0-6 Units, Subcutaneous, EVERY 4 HOURS, First dose on 04/26/23 at 0800, Until Discontinued, DO NOT HOLD CORRECTION BOLUS EVEN IF PATIENT IS NPO. BEDSIDE GLUCOSE MUST BE PERFORMED AND DOCUMENTED WITHIN 30-60 MINUTES OF CORRECTION INSULIN ADMINISTRATION. BG (mg/dL) LESS than 70 = follow Hypoglycemic guidelines 150-200 = give 1 unit 201-250 = give 2 units 251-300 = give 3 units 301-350 = give 4 units 351-400 = give 5 units and notify physician GREATER than 400 = give 6 units and notify physician $ Given 04/30/2023 9:11 PM CDT 2 Units Abdominal Tissue $ Given 04/30/2023 5:44 PM CDT 1 Units Le ft Arm $ Given 04/29/2023 8:48 PM CDT 2 Units Ab dominal Tissue insulin lispro (HumaLOG;ADMelog) 100 UNIT/ML pen 0-6 Units 0-6 Units, Subcutaneous, 3 TIMES DAILY WITH MEALS, First dose (after last modification) on [place] 05/01/23 at 0800, Until Discontinued, DO NOT HOLD CORRECTION BOLUS EVEN IF PATIENT IS NPO. BEDSIDE GLUCOSE MUST BE PERFORMED AND DOCUMENTED WITHIN 30-60 MINUTES OF CORRECTION INSULIN ADMINISTRATION. BG (mg/dL) LESS than 70 = follow Hypoglycemic guidelines 150-200 = give 1 unit 201-250 = give 2 units 251-300 = give 3 units 301-350 = give 4 units 351-400 = give 5 units and notify physician GREATER than 400 = give 6 units and notify physician $ Given 05/01/2023 6:05 PM CDT 1 Units Left Arm lactobacillus (Lactinex) granules 1 packet 1 packet, Oral, 3 TIMES DAILY, First dose on 04/26/23 at 2200, Until Discontinued $ Given 05/09/2023 1:05 PM CDT 1 packet $ Given 05/09/2023 8:12 AM CDT 1 packet $ Given 05/08/2023 9:12 PM CDT 1 packet loperamide (Imodium) capsule 2 mg 2 mg, Oral, 4 TIMES DAILY PRN, Diarrhea, Starting on 05/03/23 at 0847, Until 05/05/23 at 0851, Max dose 16mg/day $ Given 05/03/2023 9:35 AM CDT 2 mg loperamide (Imodium) capsule 4 mg 4 mg, Oral, 4 TIMES DAILY, 12 doses, First dose (after last modification) on 05/05/23 at 1300, Last dose on [place] 05/08/23 at 0900, Max dose 16mg/day $ Given 05/08/2023 8:31 AM CDT 4 mg $ Given 05/07/2023 9:45 PM CDT 4 mg $ Given 05/07/2023 6:15 PM CDT 4 mg losartan (Cozaar) tablet 25 mg 25 mg, Oral, DAILY, First dose on 04/26/23 at 0900, Until Discontinued $ Given 05/02/2023 8:55 AM CDT 25 mg $ Given 05/01/2023 8:44 AM CDT 25 mg $ Given 04/30/2023 9:06 AM CDT 25 mg magnesium sulfate 2 g in 50 mL bolus 2 g, at 25 mL/hr, Administer over 120 Minutes, Intravenous, ONCE, 1 dose, On 04/27/23 at 0900, Infuse at 1 gm/hr $ New Bag/Syringe 04/27/2023 9:39 AM CDT 2 g 25 mL/hr melatonin tablet 3 mg 3 mg, Oral, AT BEDTIME PRN, Insomnia, Starting on Fri05/05/23 at 2349, Until Fri05/09/23 at 1814 $ Given 05/08/2023 9:12 PM CDT 3 mg $ Given 05/07/2023 9:45 PM CDT 3 mg $ Given 05/06/2023 8:50 PM CDT 3 mg metroNIDAZOLE (Flagyl) 500 mg in 100 mL IVPB 500 mg, at 200 mL/hr, Intravenous, EVERY 8 HOURS, First dose on Fri04/26/23 at 0600, Until Discontinued, Controlled Room Temperature, Indication for anti-infective therapy: Documented infection, Site of anti-infective therapy: Skin/soft tissue, Bone/Joint $ New Bag/Syringe 04/30/2023 4:10 AM CDT 500 mg 200 mL/hr $ New Bag/Syringe 04/29/2023 8:48 PM CDT 500 mg 200 mL /hr $ New Bag/Syringe 04/29/2023 1:00 PM CDT 500 mg 200 mL /hr metroNIDAZOLE (Flagyl) tablet 500 mg 500 mg, Oral, EVERY 8 HOURS, First dose on Fri04/30/23 at 1300, Until Discontinued, May take with food or milk., Indication for anti-infective therapy: Documented infection, Site of anti-infective therapy: Bone/Joint $ Given 05/09/2023 1:05 PM CDT 500 mg $ Given 05/09/2023 6:35 AM CDT 500 mg $ Given 05/08/2023 9:12 PM CDT 500 mg nystatin (Mycostatin) powder Topical, 3 TIMES DAILY, First dose on Fri04/26/23 at 2200, Until Discontinued, Apply to skin folds $ Given 05/09/2023 8:13 AM CDT $ Given 05/08/2023 9:15 PM CDT $ Given 05/08/2023 8:33 AM CDT prochlorperazine (Compazine) injection 10 mg 10 mg, Intravenous, EVERY 6 HOURS PRN, Nausea/Vomiting, Starting on Fri05/06/23 at 2109, Until Fri05/09/23 at 1525, Max intravenous rate = 5 mg/min $ Given 05/06/2023 9:19 PM CDT 10 mg vancomycin (Vancocin) 1,000 mg in 0.9% NaCl IV 250 mL IVPB 1,000 mg, at 250 mL/hr, Intravenous, ONCE, 1 dose, On Fri04/30/23 at 0930, Indication for anti-infective therapy: Documented infection, Site of anti-infective therapy: Bone/Joint $ New Bag/Syringe 04/30/2023 12:43 PM CDT 1,000 mg 250 mL/hr vancomycin (Vancocin) 1,000 mg in 0.9% NaCl IV 250 mL IVPB 1,000 mg, at 250 mL/hr, Intravenous, ONCE, 1 dose, On Fri05/02/23 at 1300, Indication for anti-infective therapy: Documented infection, Site of anti-infective therapy: Bone/Joint $ New Bag/Syringe 05/02/2023 3:20 PM CDT 1,000 mg 250 mL/hr vancomycin (Vancocin) 1,250 mg in 250 mL NaCl IVPB Premix 1,250 mg, at 200 mL/hr, Intravenous, ONCE, 1 dose, On Fri05/05/23 at 0630, Indication for anti-infective therapy: Documented infection, Site of anti-infective therapy: Bone/Joint $ New Bag/Syringe 05/05/2023 11:59 AM CDT 1,250 mg 200 mL/hr $ New Bag/Syringe 05/05/2023 9:35 AM CDT 1,250 mg 200 mL /hr vancomycin (Vancocin) 1,500 mg in 500 mL NaCl IVPB Premix 1,500 mg, at 333.33 mL/hr, Intravenous, EVERY 12 HOURS, First dose on Fri04/27/23 at 0400, Until Discontinued, Indication for anti-infective therapy: Documented infection, Site of anti-infective therapy: Bone/Joint $ New Bag/Syringe 04/27/2023 5:10 PM CDT 1,500 mg 333.33 mL/hr $ New Bag/Syringe 04/27/2023 5:54 AM CDT 1,500 mg 333.33 mL/hr vancomycin (Vancocin) 2,500 mg in 550 mL IVPB 2,500 mg, at 220 mL/hr, Intravenous, ONCE, 1 dose, On Fri04/26/23 at 1600, Indication for anti-infective therapy: Documented infection, Site of anti-infective therapy: Bone/Joint $ New Bag/Syringe 04/26/2023 5:25 PM CDT 2,500 mg 220 mL/hr vancomycin (Vancocin) 750 mg in 0.9% NaCl IV 250 mL IVPB 750 mg, at 333.33 mL/hr, Intravenous, ONCE, 1 dose, On Fri05/06/23 at 0800, Indication for anti-infective therapy: Documented infection, Site of anti-infective therapy: Bone/Joint $ New Bag/Syringe 05/06/2023 8:22 AM CDT 750 mg 333.33 mL/hr vancomycin (Vancocin) 750 mg in 0.9% NaCl IV 250 mL IVPB 750 mg, at 333.33 mL/hr, Intravenous, EVERY 24 HOURS, First dose on Fri05/07/23 at 0600, Until Discontinued, Indication for anti-infective therapy: Suspected infection, Site of anti-infective therapy: Bone/Joint $ New Bag/Syringe 05/09/2023 6:36 AM CDT 750 mg 333.33 mL/hr $ New Bag/Syringe 05/08/2023 6:03 AM CDT 750 mg 333.33 mL/hr $ New Bag/Syringe 05/07/2023 6:31 AM CDT 750 mg 333.33 mL/hr vancomycin (Vancocin) IV dose per pharmacy Does not apply, DIRECTED, Starting on Fri04/26/23 at 1444, Until Fri05/09/23 at 1814, Vancomycin dosing/monitoring will be managed by pharmacy. Critical lab values should be reported to pharmacy., Indication for anti-infective therapy: Documented infection, Site of anti-infective therapy: Bone/Joint, zzrtr: No documented in this encounter Active and Recently Administered Medications Times are shown in CDT. Scheduled Medication Order 05/07/2023 05/08/2023 05/09/2023 0.9% NaCl injection 3 mL(Linked Group 1) 3 mL, Intracatheter, EVERY 8 HOURS, First dose on 04/26/23 at 0600, Until Discontinued, Flush peripheral IV catheter with 3 mL of normal saline every 8 hours. 0629 ($ Given - Provider: Deion Ackerman RN)1242 ($ Given - Provider: Sunitha Ng RN)2147 ($ Given - Provider: Jeanna Reynolds RN) 0601 ($ Given - Provider: Jeanna Reynolds RN)1400 (Not Administered - Provider: Kerrie Harvey RN - Reason: IV Currently Infusing)2114 ($ Given - Provider: Jeanna Reynolds RN) 0635 ($ Given - Provider: Jeanna Reynolds RN)1305 ($ Given - Provider: Kerrie Harvey RN) acetaminophen (Tylenol) tablet 1,000 mg 1,000 mg, Oral, 3 TIMES DAILY, First dose on 04/26/23 at 0900, Until Discontinued, Patient preference for lesser PRN pain meds may be honored when the patient requests a less strong medication, a lower dose, or a less intrusive route of administration when the lesser drug, dose and route have been ordered for the patient. This patient request must be documented in the MAR. 0928 (Not Administered - Provider: Sunitha Ng RN - Reason: Refused-Patient)1243 (Not Administered - Provider: Sunitha Ng RN - Reason: Refused-Patient)2146 (Not Administered - Provider: Jeanna Reynolds RN - Reason: Refused-Patient) 0831 ($ Given - Provider: Kerrie Harvey RN)1400 (Not Administered - Provider: Kerrie Harvey RN - Reason: Refused-Patient)2114 (Not Administered - Provider: Jeanna Reynolds RN - Reason: Refused-Patient) 0812 (Not Administered - Provider: Kerrie Harvey RN - Reason: Refused-Patient)1306 (Not Administered - Provider: Kerrie Harvey RN - Reason: Refused-Patient) amLODIPine (Norvasc) tablet 10 mg 10 mg, Oral, DAILY, First dose on Fri04/26/23 at 0900, Until Discontinued 0927 ($ Given - Provider: Sunitha Ng RN) 0832 ($ Given - Provider: Kerrie Harvey RN) 0812 ($ Given - Provider: Kerrie Harvey RN) carvedilol (Coreg) tablet 25 mg 25 mg, Oral, 2 TIMES DAILY WITH MEALS, First dose (after last modification) on Fri05/02/23 at 1800, Until Discontinued, Take with food 0928 ($ Given - Provider: Sunitha Ng RN)1815 ($ Given - Provider: Sunitha Ng RN) 0831 ($ Given - Provider: Kerrie Harvey RN)1755 ($ Given - Provider: Kerrie Harvey RN) 0812 ($ Given - Provider: Kerrie Harvey RN) cefTRIAXone (Rocephin) 2,000 mg in 0.9% NaCl IV 50 mL IVPB 2,000 mg (2 g), at 100 mL/hr, Intravenous, EVERY 24 HOURS, First dose on Fri04/27/23 at 0745, Until Discontinued, Ceftriaxone can cause precipitation when administered with calcium-containing fluids, including LR. Flush lines with a compatible fluid, such as D5W or NS before and after ceftriaxone dose. Admin through separate lumens is acceptable. , Indication for anti-infective therapy: Documented infection, Site of anti-infective therapy: Bone/Joint, Skin/soft tissue 1243 ($ New Bag/Syringe - Provider: Sunitha Ng RN)1351 (Stopped - Provider: Sunitha Ng RN) 1203 ($ New Bag/Syringe - Provider: Kerrie Harvey RN)1233 (Stopped - Provider: Kerrie Harvey RN) 1152 ($ New Bag/Syringe - Provider: Kerrie Harvey RN)1258 (Stopped - Provider: Kerrie Harvey RN) ferrous sulfate tablet 325 mg 325 mg, Oral, EVERY FRI, FRI AND FRI, First dose on Fri05/09/23 at 0900, Until Discontinued 0812 ($ Given - Provider: Kerrie Harvey RN) heparin injection 7,500 Units 7,500 Units, Subcutaneous, EVERY 8 HOURS, First dose on Fri04/27/23 at 0915, Until Discontinued 0008 ($ Given - Provider: Deion Ackerman RN)0928 ($ Given - Provider: Sunitha Ng RN)1817 ($ Given - Provider: Sunitha Ng RN) 0017 ($ Given - Provider: Jeanna Reynolds, JIMMIE)0832 ($ Given - Provider: Kerrie Harvey, JIMMIE)1650 (Not Administered - Provider: Kerrie Harvey RN - Reason: Refused-Patient) 0042 ($ Given - Provider: Jeanna Reynolds, JIMMIE)0812 ($ Given - Provider: Kerrie Harvey, JIMMIE)1515 (Not Administered - Provider: Kerrie Harvey RN - Reason: See Comments) insulin lispro (HumaLOG;ADMelog) 100 UNIT/ML pen 0-6 Units 0-6 Units, Subcutaneous, 3 TIMES DAILY WITH MEALS, First dose (after last modification) on [place] 05/01/23 at 0800, Until Discontinued, DO NOT HOLD CORRECTION BOLUS EVEN IF PATIENT IS NPO. BEDSIDE GLUCOSE MUST BE PERFORMED AND DOCUMENTED WITHIN 30-60 MINUTES OF CORRECTION INSULIN ADMINISTRATION. BG (mg/dL) LESS than 70 = follow Hypoglycemic guidelines 150-200 = give 1 unit 201-250 = give 2 units 251-300 = give 3 units 301-350 = give 4 units 351-400 = give 5 units and notify physician GREATER than 400 = give 6 units and notify physician 0929 (Not Administered - Provider: Sunitha Ng RN - Reason: Patient Condition)1351 (Not Administered - Provider: Sunitha Ng RN - Reason: Patient Condition)1816 (Not Administered - Provider: Sunitha Ng RN - Reason: Patient Condition) 0832 (Not Administered - Provider: Kerrie Harvey RN - Reason: See Comments)1203 (Not Administered - Provider: Kerrie Harvey RN - Reason: See Comments)1755 (Not Administered - Provider: Kerrie Harvey RN - Reason: See Comments) 0813 (Not Administered - Provider: Kerrie Harvey RN - Reason: See Comments)1258 (Not Administered - Provider: Kerrie Harvey RN - Reason: See Comments) lactobacillus (Lactinex) granules 1 packet 1 packet, Oral, 3 TIMES DAILY, First dose on 04/26/23 at 2200, Until Discontinued 0928 ($ Given - Provider: Sunitha Ng RN)1351 ($ Given - Provider: Sunitha Ng RN)2145 ($ Given - Provider: Jeanna Reynolds RN) 0832 ($ Given - Provider: Kerrie Harvey, JIMMIE)1421 ($ Given - Provider: Kerrie Harvey, RN)2112 ($ Given - Provider: Jeanna Reynolds, RN) 0812 ($ Given - Provider: Kerrie Harvey, JIMMIE)1305 ($ Given - Provider: Kerrie Harvey, JIMMIE) loperamide (Imodium) capsule 4 mg () 4 mg, Oral, 4 TIMES DAILY, 12 doses, First dose (after last modification) on Fri05/05/23 at 1300, Last dose on [place] 7/6/23 at 0900, Max dose 16mg/day 0927 ($ Given - Provider: Sunitha Ng RN)1242 ($ Given - Provider: Sunitha Ng RN)1815 ($ Given - Provider: Sunitha Ng RN)2145 ($ Given - Provider: Jeanna Reynolds RN) 0831 ($ Given - Provider: Kerrie Harvey, RN) metroNIDAZOLE (Flagyl) tablet 500 mg 500 mg, Oral, EVERY 8 HOURS, First dose on Fri04/30/23 at 1300, Until Discontinued, May take with food or milk., Indication for anti-infective therapy: Documented infection, Site of anti-infective therapy: Bone/Joint 0629 ($ Given - Provider: Deion Ackerman RN)1351 ($ Given - Provider: Sunitha Ng RN)2146 ($ Given - Provider: Jeanna Reynolds RN) 0601 ($ Given - Provider: Jeanna Reynolds RN)1420 ($ Given - Provider: Kerrie Harvey, JIMMIE)211 ($ Given - Provider: Jeanna Reynolds RN) 0635 ($ Given - Provider: Jeanna Reynolds, JIMMIE)1305 ($ Given - Provider: Kerrie Harvey, JIMMIE) nystatin (Mycostatin) powder Topical, 3 TIMES DAILY, First dose on Fri04/26/23 at 2200, Until Discontinued, Apply to skin folds 0929 ($ Given - Provider: Sunitha Ng RN)1352 ($ Given - Provider: Sunitha Ng RN)2146 ($ Given - Provider: Jeanna Reynolds RN) 0833 ($ Given - Provider: Kerrie Harvey, JIMMIE)1421 (Not Administered - Provider: Kerrie Harvey, JIMMIE - Reason: Refused-Patient)2115 ($ Given - Provider: Jeanna Reynolds RN) 0813 ($ Given - Provider: Kerrie Harvey, JIMMIE)1306 (Not Administered - Provider: Kerrie Harvey, JIMMIE - Reason: Refused-Patient) vancomycin (Vancocin) 750 mg in 0.9% NaCl IV 250 mL IVPB 750 mg, at 333.33 mL/hr, Intravenous, EVERY 24 HOURS, First dose on Fri05/07/23 at 0600, Until Discontinued, Indication for anti-infective therapy: Suspected infection, Site of anti-infective therapy: Bone/Joint 0631 ($ New Bag/Syringe - Provider: Deion Ackerman RN)0740 (Stopped - Provider: Sunitha Ng RN) 0603 ($ New Bag/Syringe - Provider: Jeanna Reynolds, JIMMIE)0703 (Stopped - Provider: Kerrie Harvey, RN) 0636 ($ New Bag/Syringe - Provider: Jeanna Reynolds, JIMMIE)0721 (Stopped - Provider: Kerrie Harvey, RN) vancomycin (Vancocin) IV dose per pharmacy Does not apply, DIRECTED, Starting on 04/26/23 at 1444, Until Fri05/09/23 at 1814, Vancomycin dosing/monitoring will be managed by pharmacy. Critical lab values should be reported to pharmacy., Indication for anti-infective therapy: Documented infection, Site of anti-infective therapy: Bone/Joint, zzrtr: No PRN Medication Order 05/07/2023 05/08/2023 05/09/2023 0.9% NaCl injection 1-10 mL(Linked Group 1) 1-10 mL, Intracatheter, PRN, Other, peripheral line flush, Starting on 04/26/23 at 0504, Until Fri05/09/23 at 1814, Flush peripheral IV catheter with 1-10 mL of normal saline before and after medications and prn to clear blood from the line or to verify patency. dextrose 10 % IV bolus(Linked Group 2) 12.5 g, at 468.75 mL/hr, Intravenous, PRN, Other, Bedside Glucose less than 70 mg/dL -If NOT able to eat and/or NPO and with IV Access, Starting on 04/26/23 at 0528, Until Fri05/09/23 at 1814, If NOT able to eat and/or NPO [...] NPO and with IV Access, Starting on 04/26/23 at 0528, Until Fri05/09/23 at 181, If NOT able to eat and/or NPO [...] OF HYPOGLYCEMIC EVENT. glucagon (Glucagen) injection 1 mg 1 mg, Subcutaneous, PRN, Bedside Glucose less than 70 mg/dL - If NOT able to eat and/or NPO and withOUT IV Access, Starting on 04/26/23 at 05, Until Fri05/09/23 at 1813, If NOT able to eat and/or NPO and NO IV Access: For Bedside glucose 54-69 mg/dL - Give 1 mg subcutaneous For Bedside Glucose LESS than 54 mg/dl - verify with a second bedside glucose (from a different site) - Give 1 mg subcutaneous Re-check and Re-treat blood glucose EVERY 10-25 minutes until blood glucose GREATER than or equal to 80 mg/dl. NOTIFY PROVIDER OF HYPOGLYCEMIC EVENT. Reconstitute vial with 1 mL of sterile water for injection for a final concentration of 1 mg/mL; shake vial gently; use immediately and discard unused portion glucose (Diabetic Use) (Dex4 Glucose) oral liquid Oral, PRN, Other, Bedside Glucose less than 70 mg/dL -If able to eat and does not have swallowing difficulties, Starting on 04/26/23 at 0528, Until Fri05/09/23 at 1813, If able to eat and can swallow thin liquids: For Bedside Glucose 54 - 69 mg/dL Give 15 grams of oral carbohydrates - 1 glucose liquid (see MAR) If patient refuses glucose liquid, then offer: - 4 ounces of fruit juice OR - 4 ounces non-diet soda OR - 8 ounces of fat-free milk For Bedside Glucose LESS than 54 mg/dL - verify with a second Bedside Glucose (from a different site) - If pt is symptomatic, do not delay treatment - If accuracy of the POC glucose is in question, confirm glucose with a STAT laboratory test. Give 30 grams of oral carbohydrates - 2 glucose liquid (see MAR) If patient refuses glucose liquid, then offer: - 8 ounces of fruit juice OR - 8 ounces non-diet soda OR - 16 ounces of fat-free milk Re-check and Re-treat blood glucose EVERY 10-25 minutes until blood glucose GREATER than or equal to 80 mg/dl. - If on recheck, bedside glucose 54-79 mg/dL - Give 15 grams of oral carbohydrates (see above for choices) NOTIFY PROVIDER OF HYPOGLYCEMIC EVENT. glucose (Diabetic Use) oral gel Oral, PRN, Other, Bedside Glucose less than 70 mg/dL -If able to eat and does not have swallowing difficulties, Starting on 04/26/23 at 0528, Until 05/09/23 at 1814, If able to eat and is better able to swallow gel: For Bedside Glucose 54 - 69 mg/dL [...] for choices) NOTIFY PROVIDER OF HYPOGLYCEMIC EVENT. glucose chew tablet 4 tablet 4 tablet (16 g), Oral, PRN, Other, Bedside Glucose less than 70 mg/dL -If able to eat and does not have swallowing difficulties, Starting on 04/26/23 at 0528, Until Fri05/09/23 at 1814, If able to eat and does not have swallowing difficulties: For Bedside Glucose 54 - 69 mg/dL Give 16 grams of oral carbohydrates - 4 glucose tabs (see MAR) If patient refuses glucose tabs, then offer: - 4 ounces of fruit juice OR - 4 ounces non-diet soda OR - 8 ounces of fat-free milk For Bedside Glucose LESS than 54 mg/dL - verify with a second Bedside Glucose (from a different site) - If pt is symptomatic, do not delay treatment - If accuracy of the POC glucose is in question, confirm glucose with a STAT laboratory test. Give 32 grams of oral carbohydrates - 8 glucose tabs (see MAR) If patient refuses glucose gel, [...] grams of oral carbohydrates (see above for choices). NOTIFY PROVIDER OF HYPOGLYCEMIC EVENT. melatonin tablet 3 mg 3 mg, Oral, AT BEDTIME PRN, Insomnia, Starting on 05/05/23 at 2349, Until Fri05/09/23 at 181 2145 ($ Given - Provider: Jeanna Reynolds, JIMMIE) 2112 ($ Given - Provider: Jeanna Reynolds, JIMMIE) Linked Groups Order Group 1: SALINE LOCK, INSERT AND MAINTAIN (CANCELED) Routine, CONTINUOUS, Starting on 04/26/23 at 0515, Until Specified, New collection And 0.9% NaCl injection 3 mLJump to med 3 mL, Intracatheter, EVERY 8 HOURS, First dose on 04/26/23 at 0600, Until Discontinued, Flush peripheral IV catheter with 3 mL of normal saline every 8 hours. And 0.9% NaCl injection 1-10 mLJump to med 1-10 mL, Intracatheter, PRN, Other, peripheral line flush, Starting on 04/26/23 at 0504, Until Fri05/09/23 at 181, Flush peripheral IV catheter with 1-10 mL of normal saline before and after medications and prn to clear blood from the line or to verify patency. Group 2: dextrose 10 % IV bolusJump to med 12.5 g, at 468.75 mL/hr, Intravenous, PRN, Other, Bedside Glucose less than 70 mg/dL -If NOT able to eat and/or NPO and with IV Access, Starting on 04/26/23 at 0528, Until Fri05/09/23 at 1814, If NOT able to eat and/or NPO [...] NPO and with IV Access, Starting on 04/26/23 at 0528, Until Fri05/09/23 at 1814, If NOT able to eat and/or NPO [...] IV STAT NOTIFY PROVIDER OF HYPOGLYCEMIC EVENT. documented in this encounter Additional Health Concerns Infection Onset Date Last Indicated Resolved Time CDIFF Under Investigation 05/02/2023 05/02/2023 8:29 AM CDT documented as of this encounter
--- OUTSIDE RECORDS SUMMARY | 2024-11-17 03:02 | XMS_ITS | Encounter Summary ---
Author Organization [facility] Address [address] [place] [address] Care Team Providers Care Fire Safety Director Name Role Phone Unavailable Primary Care Provider Unavailabl e Reason for Visit * Reason Comments Swelling Arm Right arm swelling t hat started 2days ago. jail changed dressing 2 days ago and, It hasn't felt right since . Denies Fever or chills. Pt from [facility]. There for rehab following LL amputation. PICC line in place for IV abx. No chest pain or shortness of breath. * Auth/Cert (Routine) Specialty Diagnoses / Procedures Referred By Contac t Referred To Contact Referral ID Status Reason Start Date Expiration Date Visits Re quested Visits Authorized [id number] 1 1 Encounter Details Date Type Department Care Team (Latest Contact Info) Description 05/17/2023 8:19 PM CDT - 05/23/2023 6:54 PM CDT Hospital Encounter SL 8N ACUTE [address] [place] [id number] Alfonso Jasmine MD [address] [place] [address] Irene Walker MD [address] [place] [address] Jed Stevenson MD [address] [place] [address] Sameer Navarro MD [address] [place] [address] Hospitalist Discharge Disposition: Nursing Facility:Medicaid Social History Tobacco [...] and heating? Not hard at all 05/18/2023 [facility] - Occupational Stress [...] slept in a usp (including now)? No 05/18/2023 Sex and Gender [...] Sign Reading Time Taken Comments Blood Pressure 175/95 05/23/2023 5:50 PM CDT Pulse 82 05/23/2023 5:50 PM CDT Temperature 36.8 ??C (98.3 ??F) 05/23/2023 5:50 PM CD T Respiratory Rate 18 05/23/2023 5:50 PM CDT Oxygen Saturation 94% 05/23/2023 5:50 PM CDT Inhaled Oxygen Concentration - - Weight 139.3 kg (307 lb) 05/21/2023 8:37 AM CDT Height 170.2 cm (5' 7 ) 05/21/2023 8:37 AM CDT Body Mass Index 48.08 05/21/2023 8:37 AM CDT documented in this encounter Functional [...] No 05/18/2023 documented as of this encounter Discharge Summaries * Willard Estrella MD - 05/23/2023 12:31 PM CDT Images from the original note were not included. [facility] INTERNAL MEDICINE DISCHARGE SUMMARY PATIENT: Gay Canales 32 year old female : 1990 ADMISSION INFORMATION ADMISSION DISCHARGE Date: 05/17/2023 Date: 05/23/2023 Admitting Physician Jed Stevenson MD Discharge Physician: Sameer Naavrro MD Present on Admission: - Acute on chronic congestive heart failure, unspecified heart failure type (CMS/HCC) - Acute hypoxic respiratory failure - Swelling of right upper extremity - CKD3b - HTN - DM2 - Right foot osteomyelitis Discharge Diagnoses: - Acute on chronic congestive heart failure, unspecified heart failure type (CMS/HCC) - Acute hypoxic respiratory failure - Swelling of right upper extremity - CKD3b - HTN - DM2 - Right foot osteomyelitis - Thrombophlebitis - Staph hauemolyticus bacteremia Admission Condition: fair Discharged Condition: fair Consults: ID HOSPITAL COURSE Hospital Course: Gay Canales is a 32 year old female with a history of CHF, HTN, DM2, left foot gangrene s/p AKA, and right diabetic foot osteomyelitis on IV antibiotics who presented from SNF for right arm swelling. Her labs were significant for BNP 479, creatinine 1.8 (baseline), albumin 1.5. CXR showed pulmonary edema and cardiomegaly. CTA chest was negative for PE, but it did show moderate pleural + pericardial effusions and diffuse body wall edema. Diuresis was given with improvement in edema. At discharge, she was transitioned to diuresis three times a week. Right arm venous duplex did demonstrate DVT,and the patient was started on apixaban. Due to recurrent swelling, repeat duplex was obtained on 05/22. Preliminary read shows now chronic DVT. The patient had blood cultures on 05/17 positive for staph epidermidis and staph haemolyticus. Repeat cultures on 05/19 and 05/21 were negative, and TTE did not show vegetations. Due to positive blood cultures and DVT, the PICC line was removed from the right upper arm. As the patient continued to decline surgical intervention for right foot osteomyelitis, ID was consulted to evaluate her antibioticregimen. They recommended discontinuing vancomycin and ceftriaxone in favor of an oral regimen. Shewill take doxycycline 100mg BID, ciprofloxacin 750mg BID, and Flagyl 500mg TID until 06/07/2023. She will be seen in ID clinic on 06/03 to re-evaluate if oral antibiotics are controlling her infection. Note to PCP (e.g. vitals, labs, imaging, medication start/stop, etc. to follow): -RUE venous duplex final read -ID appointment on 06/03 to assess efficacy of PO antibiotics Significant Diagnostic Studies: Labs this admission: CBC: Recent Labs Lab 05/22/23 0521 05/21/23 0450 05/20/23 0542 WBC 6.2 7.0 6.3 HGB 8.9* 8.8* 9.4* HCT 30.9* 30.3* 32.6* MCV 94.5 94.1 93.9 PLTCOUNT 330 332 341 BMP: Recent Labs Lab 05/22/23 0505/21/230 05/20/23 0542 NA 143 143 143 POTASSIUM 3.5 3.6 3.6 CL 110* 109* 110* BUN 10 13 12 CREATININE 1.52* 1.62* 1.65* CALCIUM 8.0* 7.9* 8.0* CMP: Recent Labs Lab 05/22/23 0505/21/230 05/20/23 0542 AST 9 7 9 ALT 5 6 5 TBILI 0.1* 0.2 0.1* ALKPHOS 143 140 153* ALB 1.4* 1.4* 1.4* PROT 5.3* 5.2* 5.4* Pertinent Microbiology: -Blood culture 05/17: staph epidermidis and staph haumolyticus -Blood culture 05/19 and 05/21: No growth to date Pending labs: None Imaging: CT HUMERUS RIGHT W CONTRAST Result Date: 05/18/2023 IMPRESSION: 1.Diffuse subcutaneous stranding throughout the imaged upper arm and chest wall is likely secondary to volume overload status in the setting of heart failure, less likely cellulitis. 2.Nofocal fluid collections identified to suggest abscess. > Dictated by Robert Woodruff MD (client services vice president). I, Sorin Veronica have personally reviewed and interpreted this examination/study. > Interpreting Provider: Sorin Veronica on 05/18/2023 1:[address] ANGIO CHEST PULM EMBOLISM Result Date: 05/18/2023 Impression: 1.Significantly limited study to evaluate for [...] 4.Cardiomegaly. > Dictated by Robert Woodruff MD (client services vice president). I, Sorin Veronica have personally reviewed and interpreted this examination/study. > Interpreting Provider: Sorin Veronica on 05/18/2023 1:37 PM Discharge Exam: Vitals: BP 177/99 Pulse 85 Temp 98.4 ??F (36.9 ??C) (Oral) Resp 18 Ht 1.702 m (5' 7 ) Wt (!) 139.3 kg (307 lb) SpO2 92% Gen: Alert, cooperative, no distress Head: Normocephalic, without obvious abnormality, atraumatic Eyes: Conjunctivae/corneas clear, EOMI Nose: Mucosa normal. No drainage. Throat: Moist mucous membranes Neck: No JVD, trachea midline Resp: CTAB, no wheezes/crackles CV: RRR, S1/S2, No M/R/G Abd: S/NT/ND, BS+, no bruits Ext: LLE AKA, well healed. Right foot with dark ulcerated lesion over the heel. Skin: Skin color, texture, turgor normal. No rashes. Neuro: No focal deficits DISCHARGE PLANNING Disposition: prison facility Patient Instructions: Medication List START taking these medications * apixaban 5 MG tablet Commonly known as: Eliquis Take 2 (two) tablets by mouth 2 times daily for 2 days * apixaban 5 MG tablet Commonly known as: Eliquis Take 1 (one) tablet by mouth 2 times daily for 90 days Start taking on: May 26, 2023 ciprofloxacin 750 MG tablet Commonly known as: Cipro Take 1 (one) tablet by mouth every 12 hours for 30 doses doxycycline monohydrate 100 MG capsule Take 1 (one) capsule by mouth every 12 hours for 30 doses furosemide 40 MG tablet Commonly known as: Lasix Take 1 (one) tablet by mouth every Friday, Friday & Friday lisinopril 10 MG tablet Commonly known as: Prinivil; Zestril Take 1 (one) tablet by mouth once daily Start taking on: May 24, 2023 * This list has 2 medication(s) that are the same as other medications prescribed for you. Read thedirections carefully, and ask your doctor or other care provider to review them with you. CHANGE how you take these medications carvedilol 12.5 MG tablet Commonly known as: Coreg Take 1 (one) tablet by mouth 2 times daily with morning and evening meal What changed: Another medication with the same name was removed. Continue taking this medication, and follow the directions you see here. CONTINUE taking these medications Alcohol Prep 70 % USE ONE SWAB TO CLEAN SKIN FOUR TIMES DAILY BEFORE TESTING FeroSul 325 (65 FE) MG tablet Generic drug: ferrous sulfate gabapentin 100 MG capsule Commonly known as: [...] tablet by mouth every 8 hours for 45 doses nystatin 723792 UNIT/GM powder Commonly known as: Mycostatin Apply to affected area 3 times daily ONETOUCH DELICA PLUS 33G EXTRA FINE LANCET USE ONE LANCET TO PRICK FINGER FOUR TIMES DAILY FOR BLOOD GLUCOSE TESTING OneTouch Verio Reflect w/Device Kit Use 1 kit 4 times daily USE METER TO CHECK BLOOD GLUCOSE FOUR TIMES DAILY Reasons: CALL [facility] WHENDELIVERING X5724 OneTouch Verio test strip Generic drug: blood glucose USE ONE STRIP TO TEST BLOOD SUGAR FOUR TIMES DAILY potassium chloride ER 20 MEQ tablet Commonly known as: Klor-Con M Take 1 (one) tablet by mouth daily with breakfast STOP taking these medications acetaminophen 500 MG tablet Commonly known as: Tylenol amLODIPine 10 MG tablet Commonly known as: Norvasc cefTRIAXone 2 g 2,000 mg in 0.9% NaCl IV 0.9 % 50 mL vancomycin 750 mg in 0.9% NaCl IV 0.9 % 250 mL Where to Get Your Medications Information about where to get these medications is not yet available Ask your nurse or doctor about these medications ?? apixaban 5 MG tablet ?? apixaban 5 MG tablet ?? ciprofloxacin 750 MG tablet ?? doxycycline monohydrate 100 MG capsule ?? furosemide 40 MG tablet ?? lisinopril 10 MG tablet ?? metroNIDAZOLE 500 MG tablet Discharge Instructions DISCHARGE INSTRUCTIONS? A MESSAGE FROM YOUR DOCTORS:?? Dear Gay Canales,? You were admitted for a blood infection and blood clot in your vein, likely due to your PICC line. You were treated with a blood clot thinner (apixaban) and your PICC line was taken out. You were on IV antibiotics previously to treat the bone infection in your right foot. You will now continue taking antibiotics (doxycycline and ciprofloxacin) by mouth as well as your antifungal medication (flagyl) as before. You will follow up with the infectious disease doctors to make sure the infection is healing. ? 1. DISCHARGE MEDICATIONS:? Below were changes made to your home medications:? Medication List START taking these medications * apixaban 5 MG tablet Commonly known as: Eliquis Take 2 (two) tablets by mouth 2 times daily for 2 days * apixaban 5 MG tablet Commonly known as: Eliquis Take 1 (one) tablet by mouth 2 times daily for 90 days Start taking on: May 26, 2023 ciprofloxacin 750 MG tablet Commonly known as: Cipro Take 1 (one) tablet by mouth every 12 hours for 30 doses doxycycline monohydrate 100 MG capsule Take 1 (one) capsule by mouth every 12 hours for 30 doses furosemide 40 MG tablet Commonly known as: Lasix Take 1 (one) tablet by mouth every Friday, Friday & Friday lisinopril 10 MG tablet Commonly known as: Prinivil; Zestril Take 1 (one) tablet by mouth once daily Start taking on: May 24, 2023 * This list has 2 medication(s) that are the same as other medications prescribed for you. Read thedirections carefully, and ask your doctor or other care provider to review them with you. CHANGE how you take these medications carvedilol 12.5 MG tablet Commonly known as: Coreg Take 1 (one) tablet by mouth 2 times daily with morning and evening meal What changed: Another medication with the same name was removed. Continue taking this medication, and follow the directions you see here. CONTINUE taking these medications Alcohol Prep 70 % USE ONE SWAB TO CLEAN SKIN FOUR TIMES DAILY BEFORE TESTING FeroSul 325 (65 FE) MG tablet Generic drug: ferrous sulfate gabapentin 100 MG capsule Commonly known as: [...] tablet by mouth every 8 hours for 45 doses nystatin [id number] UNIT/GM powder Commonly known as: Mycostatin Apply [...] daily with breakfast STOP taking these medications acetaminophen 500 MG tablet Commonly known as: Tylenol amLODIPine 10 MG tablet Commonly known as: Norvasc cefTRIAXone 2 g 2,000 mg in 0.9% NaCl IV 0.9 % 50 mL vancomycin 750 mg in 0.9% NaCl IV 0.9 % 250 mL Where to Get Your Medications Information about where to get these medications is not yet available Ask your nurse or doctor about these medications ?? apixaban 5 MG tablet ?? apixaban 5 MG tablet ?? ciprofloxacin 750 MG tablet ?? doxycycline monohydrate 100 MG capsule ?? furosemide 40 MG tablet ?? lisinopril 10 MG tablet ?? metroNIDAZOLE 500 MG tablet Other than the changes stated above, continue all other home medications as prescribed.? Please discuss these changes with your Primary Care Physician (or your specialist doctor).?? If you have any questions about your medications, please ask the pharmacy when you fruit picker your prescription. You may also call your primary provider if you still have questions.? ? 2. FOLLOW-UP:? A) Below are your scheduled appointments? Future Appointments Saturday June 03, 2023 8:30 AM (Arrive by 8:15 AM) Appointment with [facility] at [facility] - Infectious Disease ([phone]) [address] [place] [phone] ? -If you are not going home but to Rehab or Custodial, ask the providers there about going to future appointments.?? ? B) It is essential that you keep all your follow-up appointments and go to your doctors??? appointments as scheduled. If a follow-up with your primary care provider has not been scheduled, you need to schedule an appointment to follow- up on your hospitalization within 1-2 weeks. If there is a conflict, please call the clinic ahead of time and reschedule the appointment.? ? 3.? Wound Care instructions Prevention measures: ??? Large sacral Mepilex prevention dressing for patients with contained/managed incontinence, change q 3 days and prn when soiled ??? Pillows and wedges for repositioning, draw sheet ??? Frequent Side to side turning/repositioning ??? Reduce Friction/Shear - Lift patient in bed with sheet or pad. DO NOT PULL OR DRAG ??? HOB at 30 degrees or below when medically feasible ??? Off load heels with heel boots if patient cannot move legs spontaneously ??? Moisture/incontinence protection - dry skin well, apply protective barrier cream/ointment bid and prn ??? All external devices (braces/collars/etc) - follow policy guidelines for skin assessment and management ? ? Bariatric low air loss pulsate bed for patients with BMI > 40 or body habitus not allowing for sacral off loading. Right lower quadrant ulcer: VASHE soak: Wound Cleansing with VASHE: Wet gauze(s) with the solution, wring to remove excess solution, apply compress(es) to undermining/sinus/tunnel and wound bed. Allow a soak-time of: ??? 3-5 minutes for suspected bio-film, scant to light slough Remove the compresses. Cleanse the wound and kaylee-wound skin with the solution using solution-soaked gauzes and gently butfirmly cleanse to remove much of loosened slough/necrotic tissue as possible. Pat the wound bed to fruit picker excess solution, pat dry the periwound skin. Apply Aquacel AG and cover with mepilex border dressing. Change every 3 days and PRN. Right plantar heel ulcer: Betadine wet to dry dressing daily. Sween cream from base of toes to knees daily with bathing ? 4. ?Lifestyle Modifications? -It is very important for your health to AVOID/STOP smoking cigarettes. Please talk to your primarycare physician if you need help quitting smoking.? -Please include plenty of fruits and vegetables in your diet and maintain a healthy diet.? -Discuss an exercise program with your primary care physician. It is recommended that most individuals should exercise for 20 minutes at least 5 times per week.? Please call your Primary Care Provider, report to the nearest emergency room or call 911 if you develop new or concerning symptoms, including, but not limited to, fever, chest pain, palpitations, numbness, worsening confusion, weakness in arms/legs, dizziness, or worsening shortness of breath.? Thank you for allowing us to participate in your care!? ? Internal Medicine Team? [facility] [address]? [place] [address]? Signed: Willard Estrella MD Internal Medicine Resident [facility] 05/23/2023 12:31 PM Associated attestation - Sameer Navarro MD - 05/23/2023 4:29 PM CDT I have seen and examined the patient with the resident, and I agree with the findings and plan of care as documented by the resident. Care plan discussed with RN and the clinical pharmacist. Discharge instructions were reviewed. PICC line related DVT in the right brachial vein was present on admission Date of Service: 05/23/2023 Sameer Navarro MD * Chelle Severino - 05/23/2023 11:17 AM CDT Images from the original note were not included. [facility] INTERNAL MEDICINE DISCHARGE SUMMARY PATIENT: Gay Canaels 32 year old female : 1990 ADMISSION INFORMATION ADMISSION DISCHARGE Date: 05/17/2023 Date: 05/23/2023 Admitting Physician Jed Stevenson MD Discharge Physician: Sameer Navarro MD Present on Admission: ??? Acute on chronic congestive heart failure, unspecified heart failure type (CMS/HCC) ??? Swelling of right upper extremity - Right foot osteomyelitis - HTN - CKD 3B - T2DM Discharge Diagnoses: - Thrombophlebitis, RUE - Right diabetic foot with osteomyelitis - Bacteremia 2/2 Staph haemolyticus - Acute hypoxic respiratory failure - HFpEF - CKD 3B - Hypoalbuminemia - HTN - T2DM Admission Condition: fair Discharged Condition: fair Consults: ID, Clinical Nutrition HOSPITAL COURSE Hospital Course: Gay Canales is a 32 y/o female with PMH of T2DM, HTN, CHF, left foot gangrene s/p AKA, right diabetic foot with osteomyelitis on abx via PICC, who presented from SNF facility with complains of rightarm swelling. In ED, afebrile, BP running in 160-170s/90s, also found to be hypoxic to 86% and placed on 3-4L of oxygen in ED. Her labs showed BNP of 476, cr 1.8(baseline), AKP 179, alb 1.5. Chest xray showed pulm edema and cardiomegaly. CTA chest negative for PE but showed moderate pleural effusion, small to moderate pericardial effusions, and diffuse body wall edema She was found to be volume overloaded; lasix 40mg bid was initiated for diuresis and increased to q8h, and subseqently d/c after improvement in respiratory status. Continued IV vancomycin, IV CTX, and flagyl PO for osteomyelitis. 05/17 BC + Staph haemolyticus. RUE doppler with DVT in right brachial vein at the IV site. Patient was started on apixaban and picc line was removed. ID consulted, patient to start on oral doxycycline, ciprofloxacin, and flagyl until 06/07/23. Repeat RUE doppler performed with new onset swelling withredemonstration of DVT. Swelling subsequently resolved. Patient was medically stable and subsequently discharged. Note to PCP (e.g. vitals, labs, imaging, medication start/stop, etc. to follow): Patient will follow up with ID on 06/03/23 to monitor status of osteomyelitis on oral abx. Repeat RUE duplex final read pending. Significant Diagnostic Studies: Labs this admission: CBC: Recent Labs Lab 05/22/23 0521 05/21/23 0450 05/20/23 0542 WBC 6.2 7.0 6.3 HGB 8.9* 8.8* 9.4* HCT 30.9* 30.3* 32.6* MCV 94.5 94.1 93.9 PLTCOUNT 330 332 341 BMP: Recent Labs Lab 05/22/23 0521 05/21/23 0450 05/20/23 0542 NA 143 143 143 POTASSIUM 3.5 3.6 3.6 CL 110* 109* 110* BUN 10 13 12 CREATININE 1.52* 1.62* 1.65* CALCIUM 8.0* 7.9* 8.0* CMP: Recent Labs Lab 05/22/23 0521 05/21/23 0450 05/20/23 0542 AST 9 7 9 ALT 5 6 5 TBILI 0.1* 0.2 0.1* ALKPHOS 143 140 153* ALB 1.4* 1.4* 1.4* PROT 5.3* 5.2* 5.4* Coagulation: No results for input(s): PT, INR, APTT in the last 168 hours. Pertinent Microbiology: CULTURE BLOOD [[id number]] (Normal) Collected: 05/21/23 0503 Lab Status: Preliminary result Specimen: Blood Peripheral Updated: 05/23/23 0831 Culture No growth CULTURE BLOOD [[id number]] (Normal) Collected: 05/21/23 0450 Lab Status: Preliminary result Specimen: Blood Peripheral Updated: 05/23/23 0831 Culture No growth CULTURE BLOOD [[id number]] (Normal) Collected: 05/19/23 1233 Lab Status: Preliminary result Specimen: Blood Peripheral Updated: 05/21/23 1630 Culture No growth CULTURE BLOOD [[id number]] (Normal) Collected: 05/19/23 1231 Lab Status: Preliminary result Specimen: Blood Peripheral Updated: 05/21/23 1630 Culture No growth CULTURE BLOOD [[id number]] (Abnormal) (Susceptibility) Collected: 05/17/232150 Lab Status: Final result Specimen: Blood Peripheral Updated: 05/21/23 0808 Culture Growth of Staphylococcus haemolyticus Comment: Possible contaminant unless multiple cultures are positive for the same isolate. Growth of Staphylococcus epidermidis Gram Stain Gram-positive cocci in clusters Narrative: Positive at 16.5 hours. Susceptibility Staphylococcus epidermidis (2) Antibiotic Interpretation Microscan Method Status Oxacillin Resistant >=4 ug/mL CHARLES Final Vancomycin Susceptible <=0.5 ug/mL CHARLES Final BCID PANEL [[id number]] (Abnormal) Collected: 05/17/232150 Lab Status: Final result Specimen: Blood Peripheral Updated: 05/18/232143 Staphylococcus epidermidis Detected Narrative: Blood Culture ID Panel performed by [employer] multiplex PCR. Test Panel includes: Antimicrobial Resistance Genes: Mec A/C and MREJ (methicillin-resistance gene-MRSA) and van A/B (vancomycin- resistance gene). Gram Positive Bacteria: Enterococcus faecalis, Enterococcus faecium, Staphylococcus (genus), Staphylococcus aureus, Staphylococcus epidermidis, Staphylococcus lugdunensis, Streptococcus (genus), Streptococcus agalactiae (Group B), Streptococcus pneumoniae, Streptococcus pyogenes (Group A). CULTURE BLOOD [[id number]] (Abnormal) Collected: 05/17/232139 Lab Status: Preliminary result Specimen: Blood Peripheral Updated: 05/21/23 08 Culture Growth of Staphylococcus epidermidis Gram Stain Gram-positive cocci in clusters Narrative: Positive at 29 Hours 45 Minutes. Refer to previously reported susceptibility testing, specimen number:[id number] Imagin05/22/2023 RUE VENOUS DUPLEX: FINAL READ PENDING Prelim read: DVT in right brachial vein, extending into an accessory vein 05/19/2023 RUE VENOUS DUPLEX Acute DVT of right brachial vein associated with an IV. Reduced compressibility noted in the right brachial vein consistent with acute thrombus. IV noted in this vessel. There was no other echogenic thormbus oted in the lumen of the vessels. The veins were compressibile where this could be perfomred. Flow was phasic with respiration. CT HUMERUS RIGHT W CONTRAST Result Date: 05/18/2023 IMPRESSION: 1.Diffuse subcutaneous stranding throughout the imaged upper arm and chest wall is likely secondary to volume overload status in the setting of heart failure, less likely cellulitis. 2.Nofocal fluid collections identified to suggest abscess. > Dictated by Robert Woodruff MD (client services vice president). I, Sorin Veronica have personally reviewed and interpreted this examination/study. > Interpreting Provider: Sorin Veronica on 05/18/2023 1:[address] ANGIO CHEST PULM EMBOLISM Result Date: 05/18/2023 Impression: 1.Significantly limited study to evaluate for [...] 4.Cardiomegaly. > Dictated by Robert Woodruff MD (client services vice president). I, Sorin Veronica have personally reviewed and interpreted this examination/study. > Interpreting Provider: Sorin Veronica on 05/18/2023 1:37 PM Discharge Exam: Vitals: BP 177/99 Pulse 85 Temp 98.4 ??F (36.9 ??C) (Oral) Resp 18 Ht 1.702 m (5' 7 ) Wt (!) 139.3 kg (307 lb) SpO2 92% General:??Alert and oriented, no acute distress, obese habitus HEENT: Normocephalic and atraumatic. Mouth: Oral cavity and pharynx pink and moist. Neck: Trachea is midline. Cardiac: RRR. Normal S1 and S2. No murmurs, rubs, or gallops. Pulmonary: CTAB. No use of accessory breathing muscles. Abdominal: Soft, open wound to RLQ with mild purulent drainage (present on admission), improved from yesterday's exam Extremities: 3+ pitting edema of RLE with plantar ulcer x2 (present on admission), Left AKA present, RUE posterior deltoid area with minimal swelling,, nonTTP, no erythema or warmth DISCHARGE PLANNING Disposition: prison facility Discharge Instructions DISCHARGE INSTRUCTIONS? A MESSAGE FROM YOUR DOCTORS:?? Dear Gay Canales,? You were admitted for a blood infection and blood clot in your vein, likely due to your PICC line. You were treated with a blood clot thinner (apixaban) and your PICC line was taken out. You were on IV antibiotics previously to treat the bone infection in your right foot. You will now continue taking antibiotics (doxycycline and ciprofloxacin) by mouth as well as your antifungal medication (flagyl) as before. You will follow up with the infectious disease doctors to make sure the infection is healing. ? 1. DISCHARGE MEDICATIONS:? Medication List START taking these medications * apixaban 5 MG tablet Commonly known as: Eliquis Take 2 (two) tablets by mouth 2 times daily for 2 days * apixaban 5 MG tablet Commonly known as: Eliquis Take 1 (one) tablet by mouth 2 times daily for 90 days Start taking on: May 26, 2023 ciprofloxacin 750 MG tablet Commonly known as: Cipro Take 1 (one) tablet by mouth every 12 hours for 30 doses doxycycline monohydrate 100 MG capsule Take 1 (one) capsule by mouth every 12 hours for 30 doses furosemide 40 MG tablet Commonly known as: Lasix Take 1 (one) tablet by mouth every Friday, Friday & Friday lisinopril 10 MG tablet Commonly known as: Prinivil; Zestril Take 1 (one) tablet by mouth once daily Start taking on: May 24, 2023 * This list has 2 medication(s) that are the same as other medications prescribed for you. Read thedirections carefully, and ask your doctor or other care provider to review them with you. CHANGE how you take these medications carvedilol 12.5 MG tablet Commonly known as: Coreg Take 1 (one) tablet by mouth 2 times daily with morning and evening meal What changed: Another medication with the same name was removed. Continue taking this medication, and follow the directions you see here. CONTINUE taking these medications Alcohol Prep 70 % USE ONE SWAB TO CLEAN SKIN FOUR TIMES DAILY BEFORE TESTING FeroSul 325 (65 FE) MG tablet Generic drug: ferrous sulfate gabapentin 100 MG capsule Commonly known as: [...] tablet by mouth every 8 hours for 45 doses nystatin 341310 UNIT/GM powder Commonly known as: Mycostatin Apply [...] daily with breakfast STOP taking these medications acetaminophen 500 MG tablet Commonly known as: Tylenol amLODIPine 10 MG tablet Commonly known as: Norvasc cefTRIAXone 2 g 2,000 mg in 0.9% NaCl IV 0.9 % 50 mL vancomycin 750 mg in 0.9% NaCl IV 0.9 % 250 mL Where to Get Your Medications Information about where to get these medications is not yet available Ask your nurse or doctor about these medications ?? apixaban 5 MG tablet ?? apixaban 5 MG tablet ?? ciprofloxacin 750 MG tablet ?? doxycycline monohydrate 100 MG capsule ?? furosemide 40 MG tablet ?? lisinopril 10 MG tablet ?? metroNIDAZOLE 500 MG tablet ? Other than the changes stated above, continue all other home medications as prescribed.? Please discuss these changes with your Primary Care Physician (or your specialist doctor).?? If you have any questions about your medications, please ask the pharmacy when you fruit picker your prescription. You may also call your primary provider if you still have questions.? ? 2. FOLLOW-UP:? A) Below are your scheduled appointments? Future Appointments Saturday June 03, 2023 8:30 AM (Arrive by 8:15 AM) Appointment with [facility] DIS OP ANTI THERAPY at [facility] - Infectious Disease ([phone]) [address] [place] [phone] ? -If you are not going home but to Rehab or Custodial, ask the providers there about going to future appointments.?? ? B) It is essential that you keep all your follow-up appointments and go to your doctors??? appointments as scheduled. If a follow-up with your primary care provider has not been scheduled, you need to schedule an appointment to follow- up on your hospitalization within 1-2 weeks. If there is a conflict, please call the clinic ahead of time and reschedule the appointment.? ? 3.? Wound Care instructions Prevention measures: ??? Large sacral Mepilex prevention dressing for patients with contained/managed incontinence, change q 3 days and prn when soiled ??? Pillows and wedges for repositioning, draw sheet ??? Frequent Side to side turning/repositioning ??? Reduce Friction/Shear - Lift patient in bed with sheet or pad. DO NOT PULL OR DRAG ??? HOB at 30 degrees or below when medically feasible ??? Off load heels with heel boots if patient cannot move legs spontaneously ??? Moisture/incontinence protection - dry skin well, apply protective barrier cream/ointment bid and prn ??? All external devices (braces/collars/etc) - follow policy guidelines for skin assessment and management ? ? Bariatric low air loss pulsate bed for patients with BMI > 40 or body habitus not allowing for sacral off loading. Right lower quadrant ulcer: VASHE soak: Wound Cleansing with VASHE: Wet gauze(s) with the solution, wring to remove excess solution, apply compress(es) to undermining/sinus/tunnel and wound bed. Allow a soak-time of: ??? 3-5 minutes for suspected bio-film, scant to light slough Remove the compresses. Cleanse the wound and kaylee-wound skin with the solution using solution-soaked gauzes and gently butfirmly cleanse to remove much of loosened slough/necrotic tissue as possible. Pat the wound bed to fruit picker excess solution, pat dry the periwound skin. Apply Aquacel AG and cover with mepilex border dressing. Change every 3 days and PRN. Right plantar heel ulcer: Betadine wet to dry dressing daily. Sween cream from base of toes to knees daily with bathing ? 4. ?Lifestyle Modifications? -It is very important for your health to AVOID/STOP smoking cigarettes. Please talk to your primarycare physician if you need help quitting smoking.? -Please include plenty of fruits and vegetables in your diet and maintain a healthy diet.? -Discuss an exercise program with your primary care physician. It is recommended that most individuals should exercise for 20 minutes at least 5 times per week.? Please call your Primary Care Provider, report to the nearest emergency room or call 911 if you develop new or concerning symptoms, including, but not limited to, fever, chest pain, palpitations, numbness, worsening confusion, weakness in arms/legs, dizziness, or worsening shortness of breath.? Thank you for allowing us to participate in your care!? ? Internal Medicine Team? [facility] [address]? [place] [address]? Signed: Chelle Severino MS4 [facility] 05/23/2023 12:17 PM Associated attestation - Sameer Navarro MD - 05/23/2023 9:32 PM CDT I have verified the documentation of the medical student including all history, exam, and medical decision-making details. I have personally performed a physical exam and have personally reviewed thedata to support my medical decision-making as outlined in the medical student's note, and I arrive i ndependently at the same conclusion. Discharge instructions reviewed. Date of Service: 05/23/2023 Sameer Navarro MD documented in this encounter Discharge Instructions * Discharge Instructions* Chelle Severino - 05/23/2023 8:26 AM CDT Images from the original note were not included. DISCHARGE INSTRUCTIONS? A MESSAGE FROM YOUR DOCTORS:?? Dear Gay Canales,? You were admitted for a blood infection and blood clot in your vein, likely due to your PICC line. You were treated with a blood clot thinner (apixaban) and your PICC line was taken out. You were on IV antibiotics previously to treat the bone infection in your right foot. You will now continue taking antibiotics (doxycycline and ciprofloxacin) by mouth as well as your antifungal medication (flagyl) as before. You will follow up with the infectious disease doctors to make sure the infection is healing. ? DISCHARGE MEDICATIONS:? Below were changes made to your home medications:? Medication List START taking these medications * apixaban 5 MG tablet Commonly known as: Eliquis Take 2 (two) tablets by mouth 2 times daily for 2 days * apixaban 5 MG tablet Commonly known as: Eliquis Take 1 (one) tablet by mouth 2 times daily for 90 days Start taking on: May 26, 2023 ciprofloxacin 750 MG tablet Commonly known as: Cipro Take 1 (one) tablet by mouth every 12 hours for 30 doses doxycycline monohydrate 100 MG capsule Take 1 (one) capsule by mouth every 12 hours for 30 doses furosemide 40 MG tablet Commonly known as: Lasix Take 1 (one) tablet by mouth every Friday, Friday & Friday lisinopril 10 MG tablet Commonly known as: Prinivil; Zestril Take 1 (one) tablet by mouth once daily Start taking on: May 24, 2023 * This list has 2 medication(s) that are the same as other medications prescribed for you. Read thedirections carefully, and ask your doctor or other care provider to review them with you. CHANGE how you take these medications carvedilol 12.5 MG tablet Commonly known as: Coreg Take 1 (one) tablet by mouth 2 times daily with morning and evening meal What changed: Another medication with the same name was removed. Continue taking this medication, and follow the directions you see here. CONTINUE taking these medications Alcohol Prep 70 % USE ONE SWAB TO CLEAN SKIN FOUR TIMES DAILY BEFORE TESTING FeroSul 325 (65 FE) MG tablet Generic drug: ferrous sulfate gabapentin 100 MG capsule Commonly known as: [...] tablet by mouth every 8 hours for 45 doses nystatin 623573 UNIT/GM powder Commonly known as: Mycostatin Apply [...] daily with breakfast STOP taking these medications acetaminophen 500 MG tablet Commonly known as: Tylenol amLODIPine 10 MG tablet Commonly known as: Norvasc cefTRIAXone 2 g 2,000 mg in 0.9% NaCl IV 0.9 % 50 mL vancomycin 750 mg in 0.9% NaCl IV 0.9 % 250 mL Where to Get Your Medications Information about where to get these medications is not yet available Ask your nurse or doctor about these medications apixaban 5 MG tablet apixaban 5 MG tablet ciprofloxacin 750 MG tablet doxycycline monohydrate 100 MG capsule furosemide 40 MG tablet lisinopril 10 MG tablet metroNIDAZOLE 500 MG tablet Other than the changes stated above, continue all other home medications as prescribed.? Please discuss these changes with your Primary Care Physician (or your specialist doctor).?? If you have any questions about your medications, please ask the pharmacy when you fruit picker your prescription. You may also call your primary provider if you still have questions.? ? 2. FOLLOW-UP:? A) Below are your scheduled appointments? Future Appointments Saturday June 03, 2023 8:30 AM (Arrive by 8:15 AM) Appointment with [facility] INF DIS OP ANTI THERAPY at [facility] - Infectious Disease ([phone]) [address] [facility] [phone] ? -If you are not going home but to Rehab or Custodial, ask the providers there about going to future appointments.?? ? B) It is essential that you keep all your follow-up appointments and go to your doctors??? appointments as scheduled. If a follow-up with your primary care provider has not been scheduled, you need to schedule an appointment to follow- up on your hospitalization within 1-2 weeks. If there is a conflict, please call the clinic ahead of time and reschedule the appointment.? ? 3.? Wound Care instructions Prevention measures: Large sacral Mepilex prevention dressing for patients with contained/managed incontinence, change q3 days and prn when soiled Pillows and wedges for repositioning, draw sheet Frequent Side to side turning/repositioning Reduce Friction/Shear - Lift patient in bed with sheet or pad. DO NOT PULL OR DRAG HOB at 30 degrees or below when medically feasible Off load heels with heel boots if patient cannot move legs spontaneously Moisture/incontinence protection - dry skin well, apply protective barrier cream/ointment bid and prn All external devices (braces/collars/etc) - follow policy guidelines for skin assessment and management Bariatric low air loss pulsate bed for patients with BMI > 40 or body habitus not allowing for sacral off loading. Right lower quadrant ulcer: VASHE soak: Wound Cleansing with VASHE: Wet gauze(s) with the solution, wring to remove excess solution, apply compress(es) to undermining/sinus/tunnel and wound bed. Allow a soak-time of: 3-5 minutes for suspected bio-film, scant to light slough Remove the compresses. Cleanse the wound and kaylee-wound skin with the solution using solution-soaked gauzes and gently butfirmly cleanse to remove much of loosened slough/necrotic tissue as possible. Pat the wound bed to fruit picker excess solution, pat dry the periwound skin. Apply Aquacel AG and cover with mepilex border dressing. Change every 3 days and PRN. Right plantar heel ulcer: Betadine wet to dry dressing daily. Sween cream from base of toes to knees daily with bathing ? 4. ?Lifestyle Modifications? -It is very important for your health to AVOID/STOP smoking cigarettes. Please talk to your primarycare physician if you need help quitting smoking.? -Please include plenty of fruits and vegetables in your diet and maintain a healthy diet.? -Discuss an exercise program with your primary care physician. It is recommended that most individuals should exercise for 20 minutes at least 5 times per week.? Please call your Primary Care Provider, report to the nearest emergency room or call 911 if you develop new or concerning symptoms, including, but not limited to, fever, chest pain, palpitations, numbness, worsening confusion, weakness in arms/legs, dizziness, or worsening shortness of breath.? Thank you for allowing us to participate in your care!? ? Internal Medicine Team? [address]? [place] [address]? documented in this encounter Medications at Time [...] with morning and evening meal 12/12/2022 08/24/2024 ciprofloxacin (Cipro) 750 MG tablet Take 1 (one) tablet by mouth every 12 hours for 30 doses 30 tablet 05/23/2023 06/07/2023 doxycycline monohydrate 100 MG capsule Take 1 (one) capsule by mouth every 12 hours for 30 doses 26 capsule 05/23/2023 06/07/2023 FeroSul 325 (65 Fe) MG tablet Take [...] tablet by mouth every 8 hours for 45 doses 45 tablet 05/23/2023 06/07/2023 nystatin (Mycostatin) [id number] UNIT/GM powder Apply to affected area 3 times daily 12/12/2022 08/09/2024 potassium chloride ER (Klor-Con M) 20 MEQ tablet Take 1 (one) tablet by mouth daily with breakfast 12/12/2022 03/02/2024 documented as of this encounter Progress Notes * Stacy Neri, JIMMIE - 05/23/2023 6:30 PM CDT Patient discharged via ambulance. Vital signs stable (BP 170s/90s, MD aware). Linens/patient clean and dry and patient feels ready to go. Belongings include phone and supercharger mechanic, went with patient. PIV removed. Purewick removed. All questions answered and no needs expressed at this time. Report called to Jean-Claude at [facility] [phone]. * Stacy Neri RN - 05/23/2023 6:28 PM CDT Problem: Fall Risk Goal: Fall risk and fall related injury risk are minimized (interventions related to the fall risk can be found in the flowsheet documentation) Outcome: Completed Problem: Transfers Goal: STG - Transfer from bed to chair Outcome: Completed Problem: Nutrient: Increased nutrient needs (specify) Goal: Total intake will meet estimated nutrient needs Outcome: Completed Problem: Balance Goal: LTG - Patient will demonstrate Intervention to enhance balance for safe completion of daily activities Outcome: Completed Problem: Skin Integrity Goal: Skin integrity is maintained or improved Outcome: Completed * Kaylah Narvaez - 05/23/2023 12:22 PM CDT Facility Transfer Note Actual level of care at discharge: Custodial - Medicaid Discharge Facility Information: [facility] ([address] [place] [address]) [place] Made Aware of Special Needs (if applicable): RN Call Report to:[phone] Fax D/C Orders to:[phone] Date/time of transfer: 05/23/2023 @ 6pm Transportation: [employer] ([employer]) Certificate of Medical Necessity rationale: Lower Extremity (NWB RLE); Max Assist of 2; Generalizedweakness The patient has the following conditions (supporting documentation is within the medical record): ?? Assistance: Max Assist, Morbidly Obese. Requires additional personnel/special equipment; Supine to Sit: Maximum Assistance;X 2 ?? Cognitive: None ?? Medical: Requires medical monitoring during trip ?? Equipment:None ?? Infection: None ?? Orthopedic Device: None Accepting MD and contact #: Dr. Mead Completed and Signed [id number] (if applicable): NA Family/Other Notified of Transfer (name/phone): Patient notified at beside Authorization for Long-Term Facility: NA Authorization for Transportation: NA Verified Qualifying Stay(Skilled Only): YES Comments: SW faxed discharge to facility orders, after visit summary, and the MAR report to the accepting facility at [phone] VERONIKA Botello, ASHLEY [facility] [phone] 05/23/2023 12:22 PM * Skyler Kendrick RN - 05/23/2023 4:41 AM CDT A&OX4, refused care at times, patient refused Gabapentin, refused to turn all night, allowed gautam cleansed 1 time, patient educated. Patient purposefully pulled her PIV, states PIV was botheringher. No other complaints. * Melina Colorado RN - 05/22/2023 5:46 PM CDT Problem: Transfers Goal: STG - Transfer from bed to chair Outcome: Not Progressing Problem: Balance Goal: LTG - Patient will demonstrate Intervention to enhance balance for safe completion of daily activities Outcome: Not Progressing Pt not transferring from bed at this time, no progression due to lack of movement. Problem: Fall Risk Goal: Fall risk and fall related injury risk are minimized (interventions related to the fall risk can be found in the flowsheet documentation) Outcome: Progressing Problem: Nutrient: Increased nutrient needs (specify) Goal: Total intake will meet estimated nutrient needs Outcome: Progressing Pt has been free from falls. Pt is eating fairly well. * Nguyen Rodriguez RN - 05/22/2023 3:40 PM CDT Care Coordination Progress Note Anticipated level of care at discharge: Custodial - Skilled Facility Discharge Plan: discharge back to [facility] READMISSION RISK SCORE is 22 at 3:40 PM 05/22/2023. Anticipated Discharge Date: 05/23/23 Patient/Family provided with list of resources? Unknown Preferred Provider / High Quality Network List given?: Unknown Reason for provider choice: Unknown Family Support (Name and Phone): Extended Emergency Contact Information Primary Emergency Contact: Silvia Resendiz Mobile Relation: Mother Anti Air Warfare Operations Officer needed? No Secondary Emergency Contact: ANTOINETTE NUNEZYADYNishant Mobile Relation: Sister Anti Air Warfare Operations Officer needed? No Patient is alert & orientated or has capacity for decision making: Yes If No , Legal or Designated Decision Maker: Transportation at Discharge: Ambulance Equipment at Home: Equipment at Home: Chair-Shower;Walker-2 Wheeled;Wheelchair-Standard;Commode-Bedside (all of this equipment is at pt's sister's home) List DME patient requires but does not have: DME Provider: Medication affordability concerns: Follow Up Appointment: Transportation to MD: Family Name: Nguyen Rodriguez RN * Chelle Severino - 05/22/2023 3:02 PM CDT Images from the original note were not included. [facility] INTERNAL MEDICINE PROGRESS NOTE Patient: Gay Canlaes Sex: female Age: [age] year old Date of : 1990 Date of Admission: 05/17/2023 Date: 05/22/2023 LOS: 4 SUBJECTIVE Interval History: This morning, patient is doing well. Swelling in the right arm has decreased. Denies pain or fevers. Hospital Course: Gay Canales is a 32 y/o female with PMH of T2DM, HTN, CHF, left foot gangrene s/p AKA, right diabetic foot with osteomyelitis on abx via PICC, who presented from SNF facility with complains of rightarm swelling. In ED, afebrile, BP running in 160-170s/90s, also found to be hypoxic to 86% and placed on 3-4L of oxygen in ED. Her labs showed BNP of 476, cr 1.8(baseline), AKP 179, alb 1.5. Chest xray showed pulm edema and cardiomegaly. CTA chest negative for PE but showed moderate pleural effusion, small to moderate pericardial effusions, and diffuse body wall edema She was found to be volume overloaded; lasix 40mg bid was initiated for diuresis and increased to q8h, and subseqently d/c after improvement in respiratory status. Continued IV vancomycin, IV CTX, and flagyl PO for osteomyelitis. 05/17 BC + Staph haemolyticus. RUE doppler with DVT in right brachial vein at the IV site. Patient was started on apixaban and picc line was removed. OBJECTIVE Vital Signs: Vitals: 05/21/23 2348 05/22/23 0406 05/22/23 1149 05/22/23 1154 BP: 172/99 160/71 155/92 155/92 Pulse: 84 80 86 86 Resp: 16 Temp: 97.3 ??F (36.3 ??C) 97.6 ??F (36.4 ??C) 97.9 ??F (36.6 ??C) SpO2: 100% 90% 92% Weight: Height: Temp Min: 97 ??F (36.1 ??C) Max: 98.6 ??F (37 ??C), Pulse Min: 60 Max: 96, Resp Min: 8 Max: 27, BP Min: 132/82 Max: 178/99 Intake & Output: In: 780 [P.O.:780] Out: 950 [Urine:950] Physical Exam: General: Alert and oriented, no acute distress, obese habitus HEENT: Normocephalic and atraumatic. Mouth: Oral cavity and pharynx pink and moist. Neck: Trachea is midline. Cardiac: RRR. Normal S1 and S2. No murmurs, rubs, or gallops. Pulmonary: CTAB. No use of accessory breathing muscles. Abdominal: Soft, open wound to RLQ with purulent drainage (present on admission) Extremities: 3+ pitting edema of RLE with plantar ulcer x2 (present on admission), Left AKA present, RUE posterior deltoid area with minimal swelling, improvement from prior exam, nonTTP, no erythemaor warmth Current Medications: Scheduled: ??? 0.9% NaCl 3 mL Intracatheter q8h ??? apixaban 10 mg Oral BID Followed by ??? [START ON 05/26/2023] apixaban 5 mg Oral BID ??? carvedilol 12.5 mg Oral BID WC ??? cefTRIAXone (Rocephin) 2,000 mg in 0.9% NaCl IV 50 mL IVPB 2,000 mg Intravenous q24h ??? ferrous sulfate 325 mg Oral QDAY WITH BREAKFAST ??? gabapentin 100 mg Oral TID ??? insulin aspart 0-6 Units Subcutaneous TID WC ??? lisinopril 10 mg Oral QDAY ??? metroNIDAZOLE 500 mg Oral q8h ??? vancomycin 750 mg Intravenous QDAY ??? vancomycin (VANCOCIN) IV dose per pharmacy Does not apply DIRECTED Continuous: PRN: ??? SALINE LOCK, INSERT AND MAINTAIN AND 0.9% NaCl AND 0.9% NaCl ??? dextrose IV for hypoglycemia OR dextrose IV for hypoglycemia ??? glucagon ??? glucose (Diabetic Use) ??? glucose (Diabetic Use) gel ??? glucose chew tab ??? melatonin Significant Lab Results: CBC: Recent Labs Component Name 05/22/23 0521 05/21/23 0450 05/20/23 0542 WBC 6.2 7.0 6.3 HGB 8.9* 8.8* 9.4* HCT 30.9* 30.3* 32.6* MCV 94.5 94.1 93.9 Coagulation Panel: Recent Labs Component Name 04/26/23 0629 PT 16.3* INR 1.3 PTT 29.8 CMP: Recent Labs Component Name 05/22/23 0521 05/21/23 0450 05/20/23 0542 NA 143 143 143 POTASSIUM 3.5 3.6 3.6 CL 110* 109* 110* CO2 26 27 29 BUN 10 13 12 CREATININE 1.52* 1.62* 1.65* CALCIUM 8.0* 7.9* 8.0* ALB 1.4* 1.4* 1.4* ALT 5 6 5 AST 9 7 9 Recent Labs Component Name 05/22/23 0521 05/21/23 0450 05/20/23 0542 MAGNESIUM 1.8 1.7 1.9 Recent Labs Component Name 05/22/23 0521 05/21/23 0450 05/20/23 0542 PHOS 4.2 4.6 4.6 Hepatic Panel: Recent Labs Component Name 05/22/23 0521 05/21/23 0450 05/20/23 0542 AST 9 7 9 ALT 5 6 5 ALKPHOS 143 140 153* TBILI 0.1* 0.2 0.1* ALB 1.4* 1.4* 1.4* ABG: Recent Labs Component Name 05/17/23 2206 12/03/22 1856 PH 7.39 7.28* Amylase/Lipase: Invalid input(s): AMYL, LIPA Thyroid Studies: No results for input(s): TSH, T4 in the last 18799 hours. Cardiac Enzymes: Recent Labs Component Name 04/27/23 0729 12/02/221954 CKTOTAL 1,624* - TROPONINI - 0.023 Lipid Panel: Recent Labs Component Name 12/02/222032 LDLCALC 74 HDL 8* UA: No components found for: UA Microbiology: Microbiology Results (Displays last 21 days for this encounter ONLY) Procedure Component Value - Date/Time CULTURE BLOOD [[id number]] (Normal) Collected: 05/21/23 0503 Lab Status: Preliminary result Specimen: Blood Peripheral Updated: 05/22/23 0830 Culture No growth 24 hours CULTURE BLOOD [[id number]] (Normal) Collected: 05/21/23 0450 Lab Status: Preliminary result Specimen: Blood Peripheral Updated: 05/22/23 0830 Culture No growth 24 hours CULTURE BLOOD [[id number]] (Normal) Collected: 05/19/23 1233 Lab Status: Preliminary result Specimen: Blood Peripheral Updated: 05/21/23 1630 Culture No growth CULTURE BLOOD [[id number]] (Normal) Collected: 05/19/23 1231 Lab Status: Preliminary result Specimen: Blood Peripheral Updated: 05/21/23 1630 Culture No growth CULTURE BLOOD [[id number]] (Abnormal) (Susceptibility) Collected: 05/17/23 2151 Lab Status: Final result Specimen: Blood Peripheral Updated: 05/21/23 0808 Culture Growth of Staphylococcus haemolyticus Comment: Possible contaminant unless multiple cultures are positive for the same isolate. Growth of Staphylococcus epidermidis Gram Stain Gram-positive cocci in clusters Narrative: Positive at 16.5 hours. Susceptibility Staphylococcus epidermidis (2) Antibiotic Interpretation Microscan Method Status Oxacillin Resistant >=4 ug/mL CHARLES Final Vancomycin Susceptible <=0.5 ug/mL CHARLES Final BCID PANEL [[id number]] (Abnormal) Collected: 05/17/232150 Lab Status: Final result Specimen: Blood Peripheral Updated: 05/18/232143 Staphylococcus epidermidis Detected Narrative: Blood Culture ID Panel performed by [employer] multiplex PCR. Test Panel includes: Antimicrobial Resistance Genes: Mec A/C and MREJ (methicillin-resistance gene-MRSA) and van A/B (vancomycin- resistance gene). Gram Positive Bacteria: Enterococcus faecalis, Enterococcus faecium, Staphylococcus (genus), Staphylococcus aureus, Staphylococcus epidermidis, Staphylococcus lugdunensis, Streptococcus (genus), Streptococcus agalactiae (Group B), Streptococcus pneumoniae, Streptococcus pyogenes (Group A). CULTURE BLOOD [[id number]] (Abnormal) Collected: 05/17/232139 Lab Status: Preliminary result Specimen: Blood Peripheral Updated: 05/21/23 0808 Culture Growth of Staphylococcus epidermidis Gram Stain Gram-positive cocci in clusters Narrative: Positive at 29 Hours 45 Minutes. Refer to previously reported susceptibility testing, specimen number:[id number] SARS-COV-2 (COVID-19) RAPID [[id number]] (Normal) Collected: 05/09/23 1305 Lab Status: Final result Specimen: Microbiology from Nasopharyngeal Updated: 05/09/23 1410 COVID-19 PCR Not detected Narrative: The [employer] Xpert Xpress SARS-COV-2 has been authorized by the Food and Drug Administration (FDA) under an Emergency Use Authorization (EUA). This test has been validated in accordance with the FDA'sguidance document Policy for Diagnostic Testing in Laboratories [...] this EUA assay are available upon request. C DIFFICILE GDH AG + TOXIN A+B [[id number]] (Normal) Collected: 05/03/23 0238 Lab Status: Final result Specimen: Stool from Feces Updated: 05/03/23828 C difficile GDH antigen & toxin A/B NEGATIVE Narrative: Negative for toxigenic C. difficile Imaging & Studies: XR CHEST 1VW PORTABLE Result Date: 05/18/2023 PROCEDURE: XR CHEST 1VW PORTABLE, DATE/TIME OF EXAM: 05/17/2023 9:59 PM, LOCATION [facility] INDICATION: R09.02: Hypoxia ADDITIONAL CLINICAL INFORMATION: Ordering Provider Reason ForExam: r/o PNA COMPARISON: Chest x-ray from 04/27/2020 FINDINGS/IMPRESSION: A right PICC line is identified terminating in the right atrium. Improvement of mild pulmonary edema. There are small bilateral pleural effusions with lower lung atelectasis. No pneumothorax. Unchanged cardiomegaly. Report dictated by Golden Kiser DO (client services vice president). I, Arthur Avery MD have personally reviewed and interpreted this examination/study. > Interpreting Provider: Arthur Avery MD on 05/18/2023 10:[address] HUMERUS RIGHT W CONTRAST Result Date: 05/18/2023 PROCEDURE: CT HUMERUS RIGHT W CONTRAST, DATE/TIME OF EXAM: 05/18/2023 1:14 AM, LOCATION [facility] INDICATION: M79.89: Arm swelling ADDITIONAL CLINICAL INFORMATION: Ordering ProviderReason For Exam: cellulitis at PICC line site [...] in place, likely within the brachial vein. IMPRESSION: 1.Diffuse subcutaneous stranding throughout the imaged upper arm and chest wall is likely secondary to volume overload status in the setting of heart failure, less likely cellulitis. 2.Nofocal fluid collections identified to suggest abscess. > Dictated by Robert Woodruff MD (client services vice president). I, Sorin Veronica have personally reviewed and interpreted this examination/study. > Interpreting Provider: Sorin Veronica on 05/18/2023 1:[address] ANGIO CHEST PULM EMBOLISM Result Date: 05/18/2023 PROCEDURE: CT ANGIO CHEST PULM EMBOLISM, DATE/TIME OF EXAM: 05/18/2023 1:14 AM, LOCATION [facility] INDICATION: R09.02: Hypoxia ADDITIONAL CLINICAL INFORMATION: Ordering Provider Reason For Exam: r/o PE Additional: 32-year-old female with a history of heart failure [...] peripheral subsegmental branches limited due to suboptimal con trast bolus timing. Thoracic Vasculature: No vascular abnormality [...] no suspicious lytic or blastic lesions. The visibleosseous structures are intact. Upper Abdomen: Diffuse subcutaneous [...] 4.Cardiomegaly. > Dictated by Robert Woodruff MD (client services vice president). Sorin Kim have personally reviewed and interpreted this examination/study. > Interpreting Provider: Sorin Veronica on 05/18/2023 1:37 PM MRI TIBIA FIBULA RIGHT WWO CONT Result [...] report was drafted by Dante Schultz MD (certified prosthetist vice president) I, Arthur Avery MD have personally reviewed [...] report was drafted by Dante Schultz MD (certified prosthetist vice president) I, Arthur Avery MD have personally reviewed and interpreted this e xamination/study. > Interpreting Provider: Arhtur Avery MD on 04/28/2023 9:35 AM MRI [...] report was drafted by Dante Schultz MD (certified prosthetist vice president) Arthur Kim MD have personally reviewed and interpreted this e xamination/study. > Interpreting Provider: Arthur Avery MD on 04/28/2023 9:35 AM XR CHEST 1VW PORTABLE Result Date: 04/27/2023 PROCEDURE: XR CHEST 1VW PORTABLE, DATE/TIME OF EXAM: 04/27/2023 5:51 AM, LOCATION [facility] INDICATION: E11.621: Diabetic ulcer of left heel [...] enlarged. > Dictated by Dante Schultz MD (client services vice president). Xander Kim MD have personally reviewed and interpreted this examination/study. > Interpreting Provider: Xander De Guzman MD on 04/27/2023 11:13AM XR FOOT RIGHT 2VW Result Date: 04/26/2023 PROCEDURE: XR FOOT RIGHT 2VW, DATE/TIME OF EXAM: 04/26/2023 1:47 PM, LOCATION [facility] INDICATION: E11.621: Diabetic ulcer of right [...] swelling. Report dictated by Golden Kiser DO (client services vice president) 04/26/2023 2:42 PM. Xander Kim MD have personally reviewed and interpreted this examination/study. > Interpreting Provider: Xander De Guzman MD on 04/26/2023 5:41 PM XR CHEST 1VW PORTABLE Result Date: 04/26/2023 PROCEDURE: XR CHEST 1VW PORTABLE, DATE/TIME OF EXAM: 04/26/2023 8:51 AM, LOCATION [facility] INDICATION: E11.621: Diabetic ulcer of left heel [...] pneumothorax identified. Report dictated by Golden Kiser DO(client services vice president). Xander Kim MD have personally reviewed and [...] QTC Calculation (Bezet) 452 ms Calculated P [place] 43 degrees Calculated R [place] 7 degrees Calculated T [place] 26 degrees Interpretation EKG NORMAL SINUS RHYTHM NORMAL ECG Confirmed by ANDRE WHITTAKER MD ([id number]) on 05/18/2023 11:42:30 AM ASSESSMENT & PLAN Acute on chronic congestive heart failure, unspecified heart failure type (CMS/HCC) (POA: Yes) Swelling of right upper extremity (POA: Yes) Thrombophlebitis (POA: No) Gay Canales is a 32 year old female with PMH of T2DM, HTN, CHF, left foot gangrene s/p LKA, diabetic right foot osteomyelitis with PICC line abx, who presented from [facility] facility with complains of right arm swelling. Found to be in fluid overload and bacteremic with RUE DVT at PICC site. #Thrombophlebitis #Right diabetic foot with osteomyelitis #Bacteremia 2/2 Staph haemolyticus - Most likely due to pulling of her PICC line - 05/17 BCx: Staph haemolyticus - Bacteremia source likely from picc line, not osteomyelitis - Picc line d/c 05/21. Good PIV access - Recommended amputation of the RLE. Patient declined and would like to continue abx. - TTE with no thrombus or vegetations. EF 74%. Mild effects of HTN. Plan: - Continue her IV Vancomycin, IV CTX and Flagyl PO and EOT 06/07/23 - Wound care consulted, recs appreciated - Follow 05/19 BCx (currently negative) - ID consulted: - Recommend oral regimen with doxycycline 100 mg PO BID and ciprofloxacin 750 mg PO BID and flagyl 500 mg q8h for R foot osteomyelitis (EOT 06/07/2023). Patient will follow with ID clinic 06/03. If notimproving on oral abx, will need new access for IV abx. - In the event that patient becomes agreeable to amputation, will consult vascular surgery. #RUE DVT - At access site, R brachial artery - Continue apixaban 10mg BID x 7days (EOT 05/25) - Repeat RUE doppler #Acute hypoxic respiratory failure #HFpEF -Most likely due to her pulmonary edema -Chest xray with bilateral pulmonary edema and cardiomegaly -CTA showed no PE and moderate pleural effusion, small to moderate pericardial effusions, and diffuse body wall edema. -BNP 476 - Last ECHO from EF 60% with mildly enlarged LVW. LV Diastolic parameters normal. - Not symptomatic -Plan: - F/u UOP and consider PRN diuresis - NC oxygen 3-4L. - Low salt diet ?? #CKD 3B #Hypoalbuminemia - Baseline cr 1.4-1.8 - Avoid Nephrotoxins - Labs consistent with nephrotic syndrome (Alb 1.4, UPCR 10.70), likely diabetic nephropathy - Continue Lisinopril 10 mg once daily PO - Nutrition consulted, recs appreciated Encourage adequate nutritional intake with protein heavy supplements. Nathaniel and Glucerna. #HTN - Resume home dose coreg 12.5 mg bid po and titrate for higher BP - Holding home dose amlodipine due to leg edema ?? #T2DM - Likely has diabetic nephropathy - ACCU Checks - SSI Code: Full Diet: Low salt cardiac Electrolytes: Replete PRN PPx: Apixaban Access: PIV Dispo: Inpatient hospitalization. Plan for SNF discharge. The above assessment and plan will be discussed with the attending. This note is not final until attested by attending physician. Chelle Severino MS4 [facility] 05/22/2023 3:02 PM Associated attestation - Sameer Navarro MD - 05/22/2023 8:16 PM CDT I have verified the documentation of the medical student including all history, exam, and medical decision-making details. I have personally performed a physical exam and have personally reviewed thedata to support my medical decision-making as outlined in the medical student's note, and I arrive i ndependently at the same conclusion. Bacteremia likely due to PICC line, present on admission Date of Service: 05/22/2023 Sameer Navarro MD * Kaylah Narvaez - 05/22/2023 11:27 AM CDT New patient to caseload/floor Chart reviewed Patient is not medically ready to transition to next level of care Post acute recommendation: Multidisciplinary Inpatient Therapies Discharge Facility Information: [facility] ([address] [place] [address]) Insurance authorization is not required for post acute care needs SW spoke with Rosales Hart Kim ([phone]) PADMINI faxed updates to facility for review Report # [phone] Accepting Physician: Dr. Mead Thank you, VERONIKA Botello, ASHLEY [facility] [phone] 05/22/2023 11:28 AM * Alfonzo Downey, Graduate Nurse - 05/22/2023 12:52 AM CDT Problem: Transfers Goal: STG - Transfer from bed to chair Outcome: Not Progressing Problem: Balance Goal: LTG - Patient will demonstrate Intervention to enhance balance for safe completion of daily activities Outcome: Not Progressing Problem: Fall Risk Goal: Fall risk and fall related injury risk are minimized (interventions related to the fall risk can be found in the flowsheet documentation) Outcome: Progressing Problem: Nutrient: Increased nutrient needs (specify) Goal: Total intake will meet estimated nutrient needs Outcome: Progressing * Bhakti Quintana OT - 05/21/2023 3:07 PM CDT [facility] Physical Medicine and Rehabilitation Occupational Therapy Progress Note Patient: Gay Canales Med Record Number: [id number] Date of : 1990 Age: [age] year old PPE worn by staff: gloves PPE worn by patient: gown - patient, clean Tech: na Recommendations: Discharge OT Discharge Recommendations: Patient would benefit from multidisciplinary therapy This recommendation is made due to ongoing OT functional needs: address care for self in the home;address functional deficits Nurse and Physical Therapy contacted regarding patient status and/or discharge plan. Activity Level: as tolerated PRECAUTIONS: Weight Bearing Status: Lower Extremity (NWB RLE) Weight Bearing: NWB SUBJECTIVE: Subjective: Pt agreeable to participate; flat affect through majority of session Pain Assessment: Pain Location #1 Pain Scale/Observation: Numeric (0-10) Pain Rating Score #1: 0 OBJECTIVE: At start of therapy session, patient found in bed and with no alarm General Appearance: 32 y/o female, supine in bed LDA: IV's: Peripheral line Vitals: (*Assess the [...] Sp02 L O2 Room Air Observations: VSS throughout; no signs of distress Mental Status/Cognition: Level of Consciousness-Adult: Alert;Eyes Open Spontaneously Orientation Level: Oriented X4 Cognition: Follows Commands-Consistent;Attention/concentration-normal for age;Processing-Appropriate Attention Span: Appears intact Memory: Appears intact Following Commands: Follows all commands and directions without difficulty Safety Judgement: Good awareness of safety precautions Awareness of Errors: Good awareness of errors made Problem Solving: Assistance required to identify errors made Mobility: a gait belt and non-slip socks were used for all out of bed activity this date. Bed Mobility: Rolling: Activity Does Not Occur Supine to Sit: Other (Comment) (pt completes 2 sets x 5 reps of propping up onto elbows an raising shoulders off the bed as training for supine to long sitting) with HOB flat Sit to Supine: Activity Does Not Occur Transfers: Sit to Stand: Activity Does Not Occur Stand to Sit: Activity Does Not Occur Functional Ambulation: Functional mobility of ambulation to sink/bathroom Comments: pt is not ambulatory (h/o L AKA and NWB RLE) Balance: Balance Scales/Tests Used: Sitting: Static/Dynamic Sitting - Static: Not tested Sitting - Dynamic: Not tested Comments: Activities of Daily Living: Feeding: Activity Does Not Occur Oral Facial Hygiene: Activity Does Not Occur Bathing: Activity Does Not Occur Upper Body Dressing: Activity Does Not Occur Lower Body Dressing: Activity Does Not Occur Toileting: Activity Does Not Occur Splint Issued/Checked: none ACTIVITY TOLERANCE: Patient's activity tolerance: fair; pt completes 1 set x 15 reps of BUE exercises using green theraband. Pt also completes propping up onto elbows 2 sets x 5 reps to improve strength in abdominal andBUE for supine to/from sit transfers and bed mobility AM-PAC 6 Clicks Daily Activity Raw Score:: 15 TREATMENT/INTERVENTIONS: ADL training Functional transfer training Endurance [...] living, decreased functional mobility, decreased functional balance, decreased safety awareness and decreased endurance and activitytolerance. Patient continues to benefit from skilled Occupational Therapy to achieve the following functional goals. Short Term Goals: Goal Formation With patient Patient will perform grooming at edge of bed and independently Patient will perform supine to/from sit with moderate assist Patient will tolerate treatment 25 minutes and with good endurance [facility]iary Goal(s): Patient to discharge to appropriate next [...] bed, with call light within reach, with CP in room. * Paula Corrales, Lobster Fisherman - 05/21/2023 1:44 PM CDT ACTIVE CONSULTS TO PHARMACY/DISEASE STATE MONITORING Pharmacy Consult: Vancomycin ASSESSMENT/PLAN Indication: documented osteomyelitis of R calcaneus with AUC goal 400 - 600 ID consulted/following: No, but were consulted previous admission and set EOT 06/07 Assessment: Day of treatment: End of treatment date: 06/07 per last admission Current dosing regimen: 750 mg, Q24 hr has been receiving at [facility] Renal assessment: considered stable at this time as patient has Estimated Creatinine Clearance: 74.3 mL/min (A) (by C-G formula based on SCr of 1.62 mg/dL (H)). MRSA positiveNo Recent Labs Component Name 05/21/23 0450 05/20/23 0918 05/18/23 0617 05/09/23 0357 05/08/23 0841 05/06/23 0413 05/05/23 0409 05/04/23 0636 04/29/23 0338 04/28/23 0319 04/27/23201804/27/23 0729 VANCORNDM - - 11.0 - - 17.1 11.7 15.3 - - - - VANCTROUGH 15.5 - - 19.5 - - - - - 34.6* - - VANCOPEAK - 20.1* - - 26.1 - - - - - 46.6* 42.0* - = values in this interval not displayed. Based on most recent vancomycin peak and trough levels, dosing is therapeutic with an AUC of 429. Plan Dosing: Will continue current regimen. Monitoring Will order a vancomycin trough in 1 week. Will continue to monitor patient's renal function and adjust vancomycin as needed. Paula Corrales, Lobster Fisherman 05/18/2023 1:39 PM [facility] Vancomycin Guideline SUBJECTIVE/OBJECTIVE Gay Canales is a 32 year old female. The primary encounter diagnosis was Arm swelling. Diagnosesof Hypoxia, Acute on chronic congestive heart failure, unspecified heart failure type (CMS/HCC), and Bacteremia due to Gram-positive bacteria were also pertinent to this visit. Height: 5' 7 (170.2 cm) Wt 139.3 kg (307 lb) Body mass index is 48.08 kg/m??. Recent Labs Component Name 05/21/23 0450 05/20/23 0542 05/19/23 0638 05/18/23 0617 CREATININE 1.62* 1.65* 1.68* 1.71* BUN 13 12 12 16 WBC 7.0 6.3 6.1 8.0 @[id number]@ Dialysis Orders (72h ago, onward) None Radiocontrast within 72 hours The 3 most recent administrations since 05/15/2023 are shown below each listed medication. Other Order Route Dose Action Date iopamidol (Isovue 370) 76 % contrast Intravenous 125 mL $ Given - Contrast 05/18/2023 Vancomycin Administrations from JAN (last 72 hours) None * Chelle Severino - 05/21/2023 1:25 PM CDT Images from the original note were not included. [facility] INTERNAL MEDICINE PROGRESS NOTE Patient: Gay Canales Sex: female Age: [age] year old Date of : 1990 Date of Admission: 05/17/2023 Date: 05/21/2023 LOS: 3 SUBJECTIVE Interval History: This morning, patient is doing well. Swelling in the right arm has decreased. Denies pain or fevers. Had a discussion with patient pertaining to her thoughts on her course after previous hospital discharge, current treatment plan and the previously recommended option of amputation to treat her rightfoot osteomyelitis. Patient states that she was doing fine after discharge other than the swelling in her right arm but it was not painful or red. Denies having shortness of breath, states that she has been told that her oxygen saturation is low so she wears the NC. Appetite is low but she has beentrying to drink the supplemental shakes. Patient is content with her current treatment plan and thinks that her right foot is improving with the antibiotic course. She declines amputation at this time and would like to continue the antibiotics. She plans to continue staying at SNF long-term and does not have plans after that. Hospital Course: Gay Canales is a 32 y/o female with PMH of T2DM, HTN, CHF, left foot gangrene s/p AKA, diabetic right foot osteomyelitis on abx via PICC, who presented from SNF facility with complains of right arm swelling. In ED, afebrile, BP running in 160-170s/90s, also found to be hypoxic to 86% and placed on3-4L of oxygen in ED. Her labs showed BNP of 476, cr 1.8(baseline), AKP 179, alb 1.5. Chest xray showed pulm edema and cardiomegaly. CTA chest negative for PE but showed moderate pleural effusion, small to moderate pericardial effusions, and diffuse body wall edema She was found to be volume overloaded; lasix 40mg bid was initiated for diuresis and increased to q8h, and subseqently d/c after impro vement in respiratory status. Continued IV vancomycin, IV CTX, and flagyl PO for osteomyelitis. 05/17 BC + Staph haemolyticus. RUE doppler with DVT in right brachial vein at the IV site. Patient was started on apixaban and picc line was removed. OBJECTIVE Vital Signs: Vitals: 05/20/23201605/20/23 2341 05/21/23 0507 05/21/23 0837 BP: 165/60 160/86 166/84 160/90 Pulse: 82 81 60 83 Resp: Temp: 97.8 ??F (36.6 ??C) 97.3 ??F (36.3 ??C) 97.8 ??F (36.6 ??C) 98 ??F (36.7 ??C) SpO2: 100% 100% 100% 100% Weight: (!) 139.3 kg (307 lb) Height: 1.702 m (5' 7 ) Temp Min: 97 ??F (36.1 ??C) Max: 98.6 ??F (37 ??C), Pulse Min: 60 Max: 96, Resp Min: 8 Max: 27, BP Min: 132/82 Max: 178/99 Intake & Output: In: 1220 [P.O.:1220] Out: 1100 [Urine:1100] Physical Exam: General: Alert and oriented, no acute distress, obese habitus HEENT: Normocephalic and atraumatic. Mouth: Oral cavity and pharynx pink and moist. Neck: Trachea is midline. Cardiac: RRR. Normal S1 and S2. No murmurs, rubs, or gallops. Pulmonary: CTAB. No use of accessory breathing muscles. Abdominal: Soft, open wound to RLQ with purulent drainage (present on admission) Extremities: 3+ pitting edema of RLE with plantar ulcer x2 (present on admission), Left AKA present, RUE posterior deltoid area with mild swelling, improvement from prior exam, nonTTP, no erythema orwarmth Current Medications: Scheduled: ??? 0.9% NaCl 3 mL Intracatheter q8h ??? apixaban 10 mg Oral BID Followed by ??? [START ON 05/26/2023] apixaban 5 mg Oral BID ??? carvedilol 12.5 mg Oral BID WC ??? cefTRIAXone (Rocephin) 2,000 mg in 0.9% NaCl IV 50 mL IVPB 2,000 mg Intravenous q24h ??? ferrous sulfate 325 mg Oral QDAY WITH BREAKFAST ??? gabapentin 100 mg Oral TID ??? insulin aspart 0-6 Units Subcutaneous TID WC ??? lisinopril 10 mg Oral QDAY ??? metroNIDAZOLE 500 mg Oral q8h ??? vancomycin 750 mg Intravenous QDAY ??? vancomycin (VANCOCIN) IV dose per pharmacy Does not apply DIRECTED Continuous: PRN: ??? SALINE LOCK, INSERT AND MAINTAIN AND 0.9% NaCl AND 0.9% NaCl ??? dextrose IV for hypoglycemia OR dextrose IV for hypoglycemia ??? glucagon ??? glucose (Diabetic Use) ??? glucose (Diabetic Use) gel ??? glucose chew tab ??? melatonin Significant Lab Results: CBC: Recent Labs Component Name 05/21/23 0450 05/20/23 0542 05/19/23 0638 WBC 7.0 6.3 6.1 HGB 8.8* 9.4* 8.9* HCT 30.3* 32.6* 30.9* MCV 94.1 93.9 93.4 Coagulation Panel: Recent Labs Component Name 04/26/23 0629 PT 16.3* INR 1.3 PTT 29.8 CMP: Recent Labs Component Name 05/21/23 0450 05/20/23 0542 05/19/23 0638 NA 143 143 141 POTASSIUM 3.6 3.6 3.8 CL 109* 110* 111* CO2 27 29 27 BUN 13 12 12 CREATININE 1.62* 1.65* 1.68* CALCIUM 7.9* 8.0* 8.0* ALB 1.4* 1.4* 1.4* ALT 6 5 5 AST 7 9 10 Recent Labs Component Name 05/21/23 0450 05/20/23 0542 05/19/23 0638 MAGNESIUM 1.7 1.9 2.0 Recent Labs Component Name 05/21/23 0450 05/20/23 0542 05/19/23 0638 PHOS 4.6 4.6 4.6 Hepatic Panel: Recent Labs Component Name 05/21/23 0450 05/20/23 0542 05/19/23 0638 AST 7 9 10 ALT 6 5 5 ALKPHOS 140 153* 160* TBILI 0.2 0.1* 0.1* ALB 1.4* 1.4* 1.4* ABG: Recent Labs Component Name 05/17/23 2206 12/03/22 1856 PH 7.39 7.28* Amylase/Lipase: Invalid input(s): AMYL, LIPA Thyroid Studies: No results for input(s): TSH, T4 in the last 00374 hours. Cardiac Enzymes: Recent Labs Component Name 04/27/23 0729 12/02/221954 CKTOTAL 1,624* - TROPONINI - 0.023 Lipid Panel: Recent Labs Component Name 12/02/222032 LDLCALC 74 HDL 8* UA: No components found for: UA Microbiology: Microbiology Results (Displays last 21 days for this encounter ONLY) Procedure Component Value - Date/Time CULTURE BLOOD [[id number]] Collected: 05/21/23 0503 Lab Status: In process Specimen: Blood Peripheral Updated: 05/21/23 0506 CULTURE BLOOD [[id number]] Collected: 05/21/23 0450 Lab Status: In process Specimen: Blood Peripheral Updated: 05/21/23 0506 CULTURE BLOOD [[id number]] (Normal) Collected: 05/19/23 1233 Lab Status: Preliminary result Specimen: Blood Peripheral Updated: 05/20/23 1631 Culture No growth 24 hours CULTURE BLOOD [[id number]] (Normal) Collected: 05/19/23 1231 Lab Status: Preliminary result Specimen: Blood Peripheral Updated: 05/20/23 1631 Culture No growth 24 hours CULTURE BLOOD [[id number]] (Abnormal) (Susceptibility) Collected: 05/17/232150 Lab Status: Final result Specimen: Blood Peripheral Updated: 05/21/23 0808 Culture Growth of Staphylococcus haemolyticus Comment: Possible contaminant unless multiple cultures are positive for the same isolate. Growth of Staphylococcus epidermidis Gram Stain Gram-positive cocci in clusters Narrative: Positive at 16.5 hours. Susceptibility Staphylococcus epidermidis (2) Antibiotic Interpretation Microscan Method Status Oxacillin Resistant >=4 ug/mL CHARLES Final Vancomycin Susceptible <=0.5 ug/mL CHARLES Final BCID PANEL [[id number]] (Abnormal) Collected: 05/17/232150 Lab Status: Final result Specimen: Blood Peripheral Updated: 05/18/232143 Staphylococcus epidermidis Detected Narrative: Blood Culture ID Panel performed by [employer] multiplex PCR. Test Panel includes: Antimicrobial Resistance Genes: Mec A/C and MREJ (methicillin-resistance gene-MRSA) and van A/B (vancomycin- resistance gene). Gram Positive Bacteria: Enterococcus faecalis, Enterococcus faecium, Staphylococcus (genus), Staphylococcus aureus, Staphylococcus epidermidis, Staphylococcus lugdunensis, Streptococcus (genus), Streptococcus agalactiae (Group B), Streptococcus pneumoniae, Streptococcus pyogenes (Group A). CULTURE BLOOD [[id number]] (Abnormal) Collected: 05/17/23 2140 Lab Status: Preliminary result Specimen: Blood Peripheral Updated: 05/21/23 0808 Culture Growth of Staphylococcus epidermidis Gram Stain Gram-positive cocci in clusters Narrative: Positive at 29 Hours 45 Minutes. Refer to previously reported susceptibility testing, specimen number:[id number] SARS-COV-2 (COVID-19) RAPID [[id number]] (Normal) Collected: 05/09/23 1305 Lab Status: Final result Specimen: Microbiology from Nasopharyngeal Updated: 05/09/23 1410 COVID-19 PCR Not detected Narrative: The [employer] Xpert Xpress SARS-COV-2 has been authorized by the Food and Drug Administration (FDA) under an Emergency Use Authorization (EUA). This test has been validated in accordance with the FDA'sguidance document Policy for Diagnostic Testing in Laboratories [...] this EUA assay are available upon request. C DIFFICILE GDH AG + TOXIN A+B [[id number]] (Normal) Collected: 05/03/23 0238 Lab Status: Final result Specimen: Stool from Feces Updated: 05/03/23 0829 C difficile GDH antigen & toxin A/B NEGATIVE Narrative: Negative for toxigenic C. difficile Imaging & Studies: XR CHEST 1VW PORTABLE Result Date: 05/18/2023 PROCEDURE: XR CHEST 1VW PORTABLE, DATE/TIME OF EXAM: 05/17/2023 9:59 PM, LOCATION [facility] INDICATION: R09.02: Hypoxia ADDITIONAL CLINICAL INFORMATION: Ordering Provider Reason ForExam: r/o PNA COMPARISON: Chest x-ray from 04/27/2020 FINDINGS/IMPRESSION: A right PICC line is identified terminating in the right atrium. Improvement of mild pulmonary edema. There are small bilateral pleural effusions with lower lung atelectasis. No pneumothorax. Unchanged cardiomegaly. Report dictated by Golden Kiser DO (client services vice president). Arthur Kim MD have personally reviewed and interpreted this examination/study. > Interpreting Provider: Arthur Avery MD on 05/18/2023 10:[address] HUMERUS RIGHT W CONTRAST Result Date: 05/18/2023 PROCEDURE: CT HUMERUS RIGHT W CONTRAST, DATE/TIME OF EXAM: 05/18/2023 1:14 AM, LOCATION [facility] INDICATION: M79.89: Arm swelling ADDITIONAL CLINICAL INFORMATION: Ordering ProviderReason For Exam: cellulitis at PICC line site [...] in place, likely within the brachial vein. IMPRESSION: 1.Diffuse subcutaneous stranding throughout the imaged upper arm and chest wall is likely secondary to volume overload status in the setting of heart failure, less likely cellulitis. 2.Nofocal fluid collections identified to suggest abscess. > Dictated by Robert Woodruff MD (client services vice president). Sorin Kim have personally reviewed and interpreted this examination/study. > Interpreting Provider: Sorin Veronica on 05/18/2023 1:[address] ANGIO CHEST PULM EMBOLISM Result Date: 05/18/2023 PROCEDURE: CT ANGIO CHEST PULM EMBOLISM, DATE/TIME OF EXAM: 05/18/2023 1:14 AM, LOCATION [facility] INDICATION: R09.02: Hypoxia ADDITIONAL CLINICAL INFORMATION: Ordering Provider Reason For Exam: r/o PE Additional: 32-year-old female with a history of heart failure [...] peripheral subsegmental branches limited due to suboptimal con trast bolus timing. Thoracic Vasculature: No vascular abnormality [...] no suspicious lytic or blastic lesions. The visibleosseous structures are intact. Upper Abdomen: Diffuse subcutaneous [...] 4.Cardiomegaly. > Dictated by Robert Woodruff MD (client services vice president). I, Sorin Veronica have personally reviewed and interpreted this examination/study. > Interpreting Provider: Sorin Veronica on 05/18/2023 1:37 PM MRI TIBIA FIBULA RIGHT WWO CONT Result [...] report was drafted by Dante Schultz MD (certified prosthetist vice president) I, Arthur Avery MD have personally reviewed [...] report was drafted by Dante Schultz MD (certified prosthetist vice president) I, Arthur Avery MD have personally reviewed [...] report was drafted by Dante Schultz MD (certified prosthetist vice president) Arthur Kim MD have personally reviewed and interpreted this e xamination/study. > Interpreting Provider: Arthur Avery MD on 04/28/2023 9:35 AM XR CHEST 1VW PORTABLE Result Date: 04/27/2023 PROCEDURE: XR CHEST 1VW PORTABLE, DATE/TIME OF EXAM: 04/27/2023 5:51 AM, LOCATION [facility] INDICATION: E11.621: Diabetic ulcer of left heel associated with type 2 diabetes mellitus, unspecified ulcer stage (CMS/HCC) L97.429: Diabetic ulcer of left heel associated with type 2 diabetes mellitus, unspecified ulcer stage ([facility]/HCC) ADDITIONAL CLINICAL INFORMATION: Ordering Provider Reason For Exam: baseline cxr COMPARISON: Chest x-ray from 04/26/2023. FINDINGS/IMPRESSION: Right upper extremity PICC terminating in superior vena cava. Diffuse interstitial and airspace opacities compatible with pulmonary edema or pneumonia. No pneumothorax. Cardiac silhouette is enlarged. > Dictated by Dante Schultz MD (client services vice president). Xander Kim MD have personally reviewed and interpreted this examination/study. > Interpreting Provider: Xander De Guzman MD on 04/27/2023 11:13AM XR FOOT RIGHT 2VW Result Date: 04/26/2023 PROCEDURE: XR FOOT RIGHT 2VW, DATE/TIME OF EXAM: 04/26/2023 1:47 PM, LOCATION [facility] INDICATION: E11.621: 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, unspecified ulcer stage (CMS/HCC) L97.419: 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, unspecified ulcer stage ([facility]/HCC) ADDITIONAL CLINICAL INFORMATION: Ordering Provider Reason [...] swelling. Report dictated by Golden Kiser DO (client services vice president) 04/26/2023 2:42 PM. Xander Kim MD have personally reviewed and interpreted this examination/study. > Interpreting Provider: Xander De Guzman MD on 04/26/2023 5:41 PM XR CHEST 1VW PORTABLE Result Date: 04/26/2023 PROCEDURE: XR CHEST 1VW PORTABLE, DATE/TIME OF EXAM: 04/26/2023 8:51 AM, LOCATION [facility] INDICATION: E11.621: Diabetic ulcer of left heel [...] pneumothorax identified. Report dictated by Golden Kiser DO(client services vice president). Xander Kim MD have personally reviewed and [...] QTC Calculation (Bezet) 452 ms Calculated P [place] 43 degrees Calculated R [place] 7 degrees Calculated T [place] 26 degrees Interpretation EKG NORMAL SINUS RHYTHM NORMAL ECG Confirmed by ANDRE WHITTAKER MD ([id number]) on 05/18/2023 11:42:30 AM ASSESSMENT & PLAN Acute on chronic congestive heart failure, unspecified heart failure type (CMS/HCC) (POA: Yes) Swelling of right upper extremity (POA: Yes) Thrombophlebitis (POA: No) Gay Canales is a 32 year old female with PMH of T2DM, HTN, CHF, left foot gangrene s/p LKA, diabetic right foot osteomyelitis with PICC line abx, who presented from SNF facility with complains of right arm swelling. Found to be in fluid overload and bacteremic with RUE DVT at PICC site. #Thrombophlebitis #Right foot osteomyelitis #Bacteremia 2/2 Staph haemolyticus - Most likely due to pulling of her PICC line - 05/17 BCx: Staph haemolyticus - Bacteremia source likely from picc line, not osteomyelitis - Picc line d/c 05/21. Good PIV access - Recommended amputation of the RLE. Patient declined and would like to continue abx. Plan: - Continue her IV Vancomycin, IV CTX and Flagyl PO and EOT 06/07/23 - Wound care consulted, recs appreciated - Follow 05/19 BCx (currently negative) - Repeat BCx. After BCx negative for 48 hours, plan to replace picc line - TTE pending - Plan to consult ID tomorrow for abx treatment plan (extend EOT?) - In the event that patient becomes agreeable to amputation, will consult vascular surgery. #RUE DVT - At access site, R brachial artery - Continue apixaban 10mg BID x 7days (EOT 05/25) #Acute hypoxic respiratory failure #HFpEF -Most likely due to her pulmonary edema -Chest xray with bilateral pulmonary edema and cardiomegaly -CTA showed no PE and moderate pleural effusion, small to moderate pericardial effusions, and diffuse body wall edema. -BNP 476 - Last ECHO from EF 60% with mildly enlarged LVW. LV Diastolic parameters normal. - Not symptomatic -Plan: - F/u UOP and consider PRN diuresis - NC oxygen 3-4L. - Low salt diet ?? #CKD 3B #Hypoalbuminemia - Baseline cr 1.4-1.8 - Avoid Nephrotoxins - Labs consistent with nephrotic syndrome (Alb 1.4, UPCR 10.70), likely diabetic nephropathy - Continue Lisinopril 10 mg once daily PO - Nutrition consulted, recs appreciated Encourage adequate nutritional intake with protein heavy supplements. Nathaniel and Glucerna. Obtain CRP for low albumin #HTN - Resume home dose coreg 12.5 mg bid po and titrate for higher BP - Holding home dose amlodipine due to leg edema ?? #T2DM - Likely has diabetic nephropathy - ACCU Checks - SSI Code: Full Diet: Low salt cardiac Electrolytes: Replete PRN PPx: Apixaban Access: PIV Dispo: Inpatient hospitalization. Plan for SNF discharge. The above assessment and plan will be discussed with the attending. This note is not final until attested by attending physician. Chelle Maycol MS4 [facility] 05/21/2023 1:26 PM Associated attestation - Sameer Navarro MD - 05/21/2023 6:58 PM CDT I have verified the documentation of the medical student including all history, exam, and medical decision-making details. I have personally performed a physical exam and have personally reviewed thedata to support my medical decision-making as outlined in the medical student's note, and I arrive i ndependently at the same conclusion. Date of Service: 05/21/2023 Sameer Navarro MD * Alfonzo Downey Graduate Nurse - 05/21/2023 2:41 AM CDT Problem: Fall Risk Goal: Fall risk and fall related injury risk are minimized (interventions related to the fall risk can be found in the flowsheet documentation) Outcome: Progressing Problem: Transfers Goal: STG - Transfer from bed to chair Outcome: Progressing Problem: Nutrient: Increased nutrient needs (specify) Goal: Total intake will meet estimated nutrient needs Outcome: Progressing Problem: Balance Goal: LTG - Patient will demonstrate Intervention to enhance balance for safe completion of daily activities Outcome: Progressing * MaycolChelle - 05/20/2023 2:02 PM CDT Images from the original note were not included. [facility] INTERNAL MEDICINE PROGRESS NOTE Patient: Gay Canales Sex: female Age: [age] year old Date of : 1990 Date of Admission: 05/17/2023 Date: 05/20/2023 LOS: 2 SUBJECTIVE Interval History: This morning, patient is doing well. Reports increased swelling to the posterior deltoid area that started overnight. This is not the area of swelling that she initially presented with - more distal AC/forearm area. Denies pain, warmth or discoloration. Hospital Course: Gay Canales is a 32 y/o female with PMH of T2DM, HTN, CHF, left foot gangrene s/p AKA, diabetic right foot osteomyelitis on abx via PICC, who presented from SNF facility with complains of right arm swelling. In ED, afebrile, BP running in 160-170s/90s, also found to be hypoxic to 86% and placed on3-4L of oxygen in ED. Her labs showed BNP of 476, cr 1.8(baseline), AKP 179, alb 1.5. Chest xray showed pulm edema and cardiomegaly. CTA chest negative for PE but showed moderate pleural effusion, small to moderate pericardial effusions, and diffuse body wall edema She was found to be volume overloaded; lasix 40mg bid was initiated for diuresis and increased to q8h. Continued IV vancomycin, IV CTX, and flagyl PO for osteomyelitis. 05/17 BC + gram positive cocci in clusters. RUE doppler with DVT in right brachial vein at the IV site. Patient was started on apixaban. OBJECTIVE Vital Signs: Vitals: 05/19/23 2234 05/20/23 0059 05/20/23 0438 05/20/23 0737 BP: 162/93 153/88 146/97 147/79 Pulse: 79 79 80 83 Resp: 18 18 Temp: 98.2 ??F (36.8 ??C) 98.1 ??F (36.7 ??C) 98.1 ??F (36.7 ??C) 98.1 ??F (36.7 ??C) SpO2: 99% 99% 97% 99% Weight: Height: Temp Min: 97 ??F (36.1 ??C) Max: 98.6 ??F (37 ??C), Pulse Min: 78 Max: 96, Resp Min: 8 Max: 27, BP Min: 132/82 Max: 178/99 Intake & Output: In: 780 [P.O.:780] Out: 2900 [Urine:2900] Physical Exam: General: Alert and oriented, no acute distress, obese habitus HEENT: Normocephalic and atraumatic. Mouth: Oral cavity and pharynx pink and moist. Neck: Trachea is midline. Cardiac: RRR. Normal S1 and S2. No murmurs, rubs, or gallops. Pulmonary: Crackles in bilateral lung bases. No use of accessory breathing muscles. Abdominal: Soft, open wound to RLQ with purulent drainage Extremities: 3+ pitting edema of RLE with plantar ulcer, Left AKA present, RUE posterior deltoid area with moderate swelling, fluctuant, nonTTP, no erythema or warmth Current Medications: Scheduled: ??? 0.9% NaCl 3 mL Intracatheter q8h ??? apixaban 10 mg Oral BID Followed by ??? [START ON 05/26/2023] apixaban 5 mg Oral BID ??? carvedilol 12.5 mg Oral BID WC ??? cefTRIAXone (Rocephin) 2,000 mg in 0.9% NaCl IV 50 mL IVPB 2,000 mg Intravenous q24h ??? ferrous sulfate 325 mg Oral QDAY WITH BREAKFAST ??? furosemide 40 mg Intravenous q8h ??? gabapentin 100 mg Oral TID ??? insulin aspart 0-6 Units Subcutaneous TID WC ??? lisinopril 10 mg Oral QDAY ??? metroNIDAZOLE 500 mg Oral q8h ??? vancomycin 750 mg Intravenous QDAY ??? vancomycin (VANCOCIN) IV dose per pharmacy Does not apply DIRECTED Continuous: PRN: ??? SALINE LOCK, INSERT AND MAINTAIN AND 0.9% NaCl AND 0.9% NaCl ??? dextrose IV for hypoglycemia OR dextrose IV for hypoglycemia ??? glucagon ??? glucose (Diabetic Use) ??? glucose (Diabetic Use) gel ??? glucose chew tab ??? melatonin Significant Lab Results: CBC: Recent Labs Component Name 05/20/23 0542 05/19/23 0638 05/18/23 0617 WBC 6.3 6.1 8.0 HGB 9.4* 8.9* 9.2* HCT 32.6* 30.9* 31.4* MCV 93.9 93.4 93.2 Coagulation Panel: Recent Labs Component Name 04/26/23 0629 PT 16.3* INR 1.3 PTT 29.8 CMP: Recent Labs Component Name 05/20/23 0542 05/19/23 0638 05/18/23 0617 NA 143 141 144 POTASSIUM 3.6 3.8 3.6 CL 110* 111* 111* CO2 29 27 25 BUN 12 12 16 CREATININE 1.65* 1.68* 1.71* CALCIUM 8.0* 8.0* 8.0* ALB 1.4* 1.4* 1.5* ALT 5 5 6 AST 9 10 11 Recent Labs Component Name 05/20/23 0542 05/19/23 0638 05/18/23 0617 MAGNESIUM 1.9 2.0 2.1 Recent Labs Component Name 05/20/23 0542 05/19/23 0638 05/18/23 0617 PHOS 4.6 4.6 4.2 Hepatic Panel: Recent Labs Component Name 05/20/23 0542 05/19/23 0638 05/18/23 0617 AST 9 10 11 ALT 5 5 6 ALKPHOS 153* 160* 175* TBILI 0.1* 0.1* 0.2 ALB 1.4* 1.4* 1.5* ABG: Recent Labs Component Name 05/17/23 2206 12/03/22 1856 PH 7.39 7.28* Amylase/Lipase: Invalid input(s): AMYL, LIPA Thyroid Studies: No results for input(s): TSH, T4 in the last 24055 hours. Cardiac Enzymes: Recent Labs Component Name 04/27/23 0729 12/02/22 1955 CKTOTAL 1,624* - TROPONINI - 0.023 Lipid Panel: Recent Labs Component Name 12/02/22 2033 LDLCALC 74 HDL 8* UA: No components found for: UA Microbiology: Microbiology Results (Displays last 21 days for this encounter ONLY) Procedure Component Value - Date/Time CULTURE BLOOD [[id number]] Collected: 05/19/23 1233 Lab Status: In process Specimen: Blood Peripheral Updated: 05/19/23 1238 CULTURE BLOOD [[id number]] Collected: 05/19/23 1231 Lab Status: In process Specimen: Blood Peripheral Updated: 05/19/23 1238 CULTURE BLOOD [[id number]] (Abnormal) Collected: 05/17/23 215 Lab Status: Preliminary result Specimen: Blood Peripheral Updated: 05/20/23 1050 Culture Growth of Staphylococcus haemolyticus Comment: Possible contaminant unless multiple cultures are positive for the same isolate. Growth of Staphylococcus epidermidis Gram Stain Gram-positive cocci in clusters Narrative: Positive at 16.5 hours. BCID PANEL [[id number]] (Abnormal) Collected: 05/17/23 2151 Lab Status: Final result Specimen: Blood Peripheral Updated: 05/18/23 2144 Staphylococcus epidermidis Detected Narrative: Blood Culture ID Panel performed by [employer] multiplex PCR. Test Panel includes: Antimicrobial Resistance Genes: Mec A/C and MREJ (methicillin-resistance gene-MRSA) and van A/B (vancomycin- resistance gene). Gram Positive Bacteria: Enterococcus faecalis, Enterococcus faecium, Staphylococcus (genus), Staphylococcus aureus, Staphylococcus epidermidis, Staphylococcus lugdunensis, Streptococcus (genus), Streptococcus agalactiae (Group B), Streptococcus pneumoniae, Streptococcus pyogenes (Group A). CULTURE BLOOD [[id number]] (Abnormal) Collected: 05/17/23 214 Lab Status: Preliminary result Specimen: Blood Peripheral Updated: 05/20/23 1105 Culture Growth of Staphylococcus epidermidis Gram Stain Gram-positive cocci in clusters Narrative: Positive at 29 Hours 45 Minutes. Refer to previously reported susceptibility testing, specimen number:[id number] SARS-COV-2 (COVID-19) RAPID [[id number]] (Normal) Collected: 05/09/23 1305 Lab Status: Final result Specimen: Microbiology from Nasopharyngeal Updated: 05/09/23 1410 COVID-19 PCR Not detected Narrative: The [employer] Xpert Xpress SARS-COV-2 has been authorized by the Food and Drug Administration (FDA) under an Emergency Use Authorization (EUA). This test has been validated in accordance with the FDA'sguidance document Policy for Diagnostic Testing in Laboratories [...] this EUA assay are available upon request. C DIFFICILE GDH AG + TOXIN A+B [[id number]] (Normal) Collected: 05/03/23 0238 Lab Status: Final result Specimen: Stool from Feces Updated: 05/03/23828 C difficile GDH antigen & toxin A/B NEGATIVE Narrative: Negative for toxigenic C. difficile Imaging & Studies: XR CHEST 1VW PORTABLE Result Date: 05/18/2023 PROCEDURE: XR CHEST 1VW PORTABLE, DATE/TIME OF EXAM: 05/17/2023 9:59 PM, LOCATION [facility] INDICATION: R09.02: Hypoxia ADDITIONAL CLINICAL INFORMATION: Ordering Provider Reason ForExam: r/o PNA COMPARISON: Chest x-ray from 04/27/2020 FINDINGS/IMPRESSION: A right PICC line is identified terminating in the right atrium. Improvement of mild pulmonary edema. There are small bilateral pleural effusions with lower lung atelectasis. No pneumothorax. Unchanged cardiomegaly. Report dictated by Golden Kiser DO (client services vice president). I, Arthur Avery MD have personally reviewed and interpreted this examination/study. > Interpreting Provider: Arthur Avery MD on 05/18/2023 10:[address] HUMERUS RIGHT W CONTRAST Result Date: 05/18/2023 PROCEDURE: CT HUMERUS RIGHT W CONTRAST, DATE/TIME OF EXAM: 05/18/2023 1:14 AM, LOCATION [facility] INDICATION: M79.89: Arm swelling ADDITIONAL CLINICAL INFORMATION: Ordering ProviderReason For Exam: cellulitis at PICC line site [...] in place, likely within the brachial vein. IMPRESSION: 1.Diffuse subcutaneous stranding throughout the imaged upper arm and chest wall is likely secondary to volume overload status in the setting of heart failure, less likely cellulitis. 2.Nofocal fluid collections identified to suggest abscess. > Dictated by Robert Woodruff MD (client services vice president). I, Sorin Veronica have personally reviewed and interpreted this examination/study. > Interpreting Provider: Sorin Veronica on 05/18/2023 1:[address] ANGIO CHEST PULM EMBOLISM Result Date: 05/18/2023 PROCEDURE: CT ANGIO CHEST PULM EMBOLISM, DATE/TIME OF EXAM: 05/18/2023 1:14 AM, LOCATION [facility] INDICATION: R09.02: Hypoxia ADDITIONAL CLINICAL INFORMATION: Ordering Provider Reason For Exam: r/o PE Additional: 32-year-old female with a history of heart failure [...] peripheral subsegmental branches limited due to suboptimal con trast bolus timing. Thoracic Vasculature: No vascular abnormality [...] no suspicious lytic or blastic lesions. The visibleosseous structures are intact. Upper Abdomen: Diffuse subcutaneous [...] 4.Cardiomegaly. > Dictated by Robert Woodruff MD (client services vice president). I, Sorin Veronica have personally reviewed and interpreted this examination/study. > Interpreting Provider: Sorin Veronica on 05/18/2023 1:37 PM MRI TIBIA FIBULA RIGHT WWO CONT Result [...] report was drafted by Dante Schultz MD (certified prosthetist vice president) I, Arthur Avery MD have personally reviewed [...] report was drafted by Dante Schultz MD (certified prosthetist vice president) I, Arthur Avery MD have personally reviewed [...] report was drafted by Dante Schultz MD (certified prosthetist vice president) Arthur Kim MD have personally reviewed and interpreted this e xamination/study. > Interpreting Provider: Arthur Avery MD on 04/28/2023 9:35 AM XR CHEST 1VW PORTABLE Result Date: 04/27/2023 PROCEDURE: XR CHEST 1VW PORTABLE, DATE/TIME OF EXAM: 04/27/2023 5:51 AM, LOCATION [facility] INDICATION: E11.621: Diabetic ulcer of left heel associated with type 2 diabetes mellitus, unspecified ulcer stage (CMS/[facility]) L97.429: Diabetic ulcer of left heel associated with type 2 diabetes mellitus, unspecified ulcer stage ([facility]) ADDITIONAL CLINICAL INFORMATION: Ordering Provider Reason For Exam: baseline cxr COMPARISON: Chest x-ray from 04/26/2023. FINDINGS/IMPRESSION: Right upper extremity PICC terminating in superior vena cava. Diffuse interstitial and airspace opacities compatible with pulmonary edema or pneumonia. No pneumothorax. Cardiac silhouette is enlarged. > Dictated by Dante Schultz MD (client services vice president). Xander Kim MD have personally reviewed and interpreted this examination/study. > Interpreting Provider: Xander De Guzman MD on 04/27/2023 11:13AM XR FOOT RIGHT 2VW Result Date: 04/26/2023 PROCEDURE: XR FOOT RIGHT 2VW, DATE/TIME OF EXAM: 04/26/2023 1:47 PM, LOCATION [facility] INDICATION: E11.621: Diabetic ulcer of right [...] swelling. Report dictated by Golden Kiser DO (client services vice president) 04/26/2023 2:42 PM. Xander Kim MD have personally reviewed and interpreted this examination/study. > Interpreting Provider: Xander De Guzman MD on 04/26/2023 5:41 PM XR CHEST 1VW PORTABLE Result Date: 04/26/2023 PROCEDURE: XR CHEST 1VW PORTABLE, DATE/TIME OF EXAM: 04/26/2023 8:51 AM, LOCATION [facility] INDICATION: E11.621: Diabetic ulcer of left heel [...] pneumothorax identified. Report dictated by Golden Kiser DO(client services vice president). Xander Kim MD have personally reviewed and [...] QTC Calculation (Bezet) 452 ms Calculated P [place] 43 degrees Calculated R [place] 7 degrees Calculated T [place] 26 degrees Interpretation EKG NORMAL SINUS RHYTHM NORMAL ECG Confirmed by ANDRE WHITTAKER MD ([id number]) on 05/18/2023 11:42:30 AM ASSESSMENT & PLAN Acute on chronic congestive heart failure, unspecified heart failure type (CMS/HCC) (POA: Yes) Swelling of right upper extremity (POA: Yes) Gay Canales is a 32 year old female with PMH of T2DM, HTN, CHF, left foot gangrene s/p LKA, diabetic right foot osteomyelitis with PICC line abx, who presented from SNF facility with complains of right arm swelling. Found to be in fluid overload and bacteremic with RUE DVT at PICC site. #Right arm swelling #Right foot osteomyelitis #Bacteremia - Most likely due to pulling of her PICC line - No redness or discharged noted - Vascular Surgery and ID consulted last admission and advised for RKA but patient declined - 05/17 BCx: Staph haemolyticus Plan: - Continue her IV Vancomycin, IV CTX and Flagyl PO and EOT 06/07/23 - Wound care following - IV access obtained. D/c PICC line. - Obtain TTE for workup on thrombophlebitis/endocarditis - Follow 05/19 BCx #RUE DVT - At access site, R brachial artery - See above for PICC catheter plan - Continue apixaban 10mg BID x 7days #Acute hypoxic respiratory failure #HFpEF -Most likely due to her pulmonary edema -Chest xray with bilateral pulmonary edema and cardiomegaly -CTA showed no PE and moderate pleural effusion, small to moderate pericardial effusions, and diffuse body wall edema. -BNP 476 - Last ECHO from EF 60% with mildly enlarged LVW. LV Diastolic parameters normal. -Plan: - D/c lasix to evaluate volume status. F/u UOP and consider PRN diuresis - NC oxygen 3-4L. - Low salt diet ?? #CKD 3B #Hypoalbuminemia - Baseline cr 1.4-1.8 - Baseline cr 1.8 - Avoid Nephrotoxins - Labs consistent with nephrotic syndrome (Alb 1.4, UPCR 10.70), likely diabetic nephropathy - Start Lisinopril 10 mg once daily PO - Nutrition consult. Encourage adequate nutritional intake with protein heavy supplements like Nathaniel #HTN - Resume home dose coreg 12.5 mg bid po and titrate for higher BP - Holding home dose amlodipine due to leg edema ?? #T2DM - Likely has diabetic nephropathy - ACCU Checks - SSI Code: Full Diet: Low salt cardiac Electrolytes: Replete PRN PPx: Apixaban Access: PIV, removing PICC Dispo: Inpatient hospitalization The above assessment and plan will be discussed with the attending. This note is not final until attested by attending physician. Chelle Severino MS4 [facility] 05/20/2023 2:03 PM Associated attestation - Sameer Navarro MD - 05/20/2023 7:15 PM CDT I have verified the documentation of the medical student including all history, exam, and medical decision-making details. I have personally performed a physical exam and have personally reviewed thedata to support my medical decision-making as outlined in the medical student's note, and I arrive i ndependently at the same conclusion. Date of Service: 05/20/2023 Sameer Navarro MD * Jeanna Dickerson RN - 05/20/2023 2:35 AM CDT Problem: Fall Risk Goal: Fall risk and fall related injury risk are minimized (interventions related to the fall risk can be found in the flowsheet documentation) Outcome: Progressing Problem: Nutrient: Increased nutrient needs (specify) Goal: Total intake will meet estimated nutrient needs Outcome: Progressing * Cata Canales RN - 05/19/2023 4:58 PM CDT Problem: Fall Risk Goal: Fall risk and fall related injury risk are minimized (interventions related to the fall risk can be found in the flowsheet documentation) Outcome: Progressing Problem: Transfers Goal: STG - Transfer from bed to chair Outcome: Progressing Problem: Nutrient: Increased nutrient needs (specify) Goal: Total intake will meet estimated nutrient needs Outcome: Progressing Problem: Balance Goal: LTG - Patient will demonstrate Intervention to enhance balance for safe completion of daily activities Outcome: Progressing * Bhakti Quintana, OT - 05/19/2023 2:20 PM CDT [facility] Physical Medicine and Rehabilitation Occupational Therapy Initial Evaluation Note Patient: Gay Canales Med Record Number: [id number] Date of : 1990 Age: [age] year old PPE worn by staff: gloves PPE worn by patient: gown - patient, clean Tech: with PT Recommendations: Discharge OT Discharge Recommendations: Patient would [...] other treatment team members. Nurse and Physical Therapy contacted regarding patient status and/or discharge plan. Physician Orders: Evaluation and Treat Activity Level: up ad rebekah PRECAUTIONS: Weight Bearing Status: Lower Extremity (NWB RLE) Weight Bearing: NWB DIAGNOSIS: Patient Active Problem List: Type II or unspecified type diabetes mellitus without mention of complication, not stated as uncontrolled (CMS/HCC) Intentional overdose of drug in tablet form (CMS/HCC) Severe recurrent major 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 psychotic features (CMS/HCC) PTSD (post-traumatic stress disorder) CHF (congestive heart failure) (CMS/HCC) Left foot infection Hypoxia Essential hypertension Swelling of left foot Bacteremia due to Gram-positive bacteria S/P AKA (above knee amputation) unilateral, left (CMS/HCC) 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 (CMS/HCC) Anemia Acute on chronic congestive heart failure, unspecified heart failure type (CMS/HCC) Swelling of right upper extremity Past Medical History: Diagnosis Date ??? Essential (primary) hypertension ??? Heart failure (CMS/HCC) ??? Type 2 diabetes mellitus without complications (CMS/HCC) SUBJECTIVE: Subjective: Pt agreeable to participate; flat affect through majority of session PATIENT GOALS: Home Situation: Type of Residence: Other (Currently at SNF, but when DCed from SNF, will go to live with her sister.) Equipment at Home: Chair-Shower;Walker-2 Wheeled;Wheelchair-Standard;Commode-Bedside (all of this equipment is at pt's sister's home) Prior Level of Functioning: Mobility: Non-Ambulatory;Other (Comment) (staff at SNF currently using a valerie for transfers) Have Help at Home?: Yes, there is help at home now Who assists you at home?: Staff How often is assistance provided?: 26/05 care at SNF Level of Help Sufficient?: Yes Oxygen at Home: No Vision: Corrected with glasses (needs new presciption and currently getting injections at eye doctor) Hearing Exceptions: No impairment Pain Assessment: Pain Location #1 Pain Scale/Observation: Numeric (0-10) Pain Rating Score #1: 0 OBJECTIVE: At start of therapy session, patient found in bed and with no alarm General Appearance: 32 y/o female, supine in bed LDA: IV's: Peripheral line Edema: No edema noted Vitals: (*Assess the 3 levels of oxygen saturations both for room air and 02 unless rest on room air is 88% or less). Rest BP: 149/84 HR: 79 Sp02 Sp02 99 3L O2 Ex/Gait/Activity Without 02 BP: HR: Sp02 87 Room Air Ex/Gait/Activity With 02 BP: HR: Sp02 L O2 Post Activity BP: HR: Sp02 Sp02 95 3L O2 Room Air Observations: VSS throughout; pt desats on RA with activity Mental Status/Cognition: Level of Consciousness-Adult: Alert Orientation Level: Oriented X4 Cognition: Follows Commands-Consistent Attention Span: Appears intact Memory: Appears intact Following Commands: Follows all commands and directions without difficulty Safety Judgement: Good awareness of safety precautions Awareness of Errors: Assistance required to identify errors made Problem Solving: Assistance required to identify errors made UE ROM: RUE: AROM WFL LUE: AROM WFL Strength: RUE: WNL, some general weakness; 4-/5 LUE: WNL, some general weakness; 4-/5 UE Tone RUE: no abnormal tone noted LUE: no abnormal tone noted Coordination: intact serial opposition for bilateral hands, intact FNF UE Proprioception RUE: WFL LUE: WFL UE Sensation RUE: intact, no complaints of numbness or tingling LUE: intact, no complaints of numbness or tingling Perception: Inattention/Neglect: Appears intact Visual Motor Tracking: Able to track stimulus in all quads w/o difficulty Mobility: A gait belt and non-slip socks were used for all out of bed activity this date. Bed Mobility: Supine to Sit: Maximum Assistance;X 2 (PT managed L LE) with HOB in semi-fowlers position Sit to Supine: Moderate Assistance (assisted R LE into bed) Transfers: Sit to Stand: Activity Does Not Occur Functional Ambulation: Functional mobility of ambulation to sink/bathroom Comments: pt is not ambulatory at this time; pt with h/o L AKA and is now NWB to RLE Balance: Balance Scales/Tests Used: Sitting: Static/Dynamic Sitting - Static: Fair - Sitting - Dynamic: Fair -;Poor + Activities of Daily Living Feeding: Stand By Assist (hand to mouth intact) Oral Facial Hygiene: Stand By Assist Bathing: Activity Does Not Occur Upper Body Dressing: Moderate Assistance (to manage gown) Lower Body Dressing: Maximal Assistance Toileting: Activity Does Not Occur Splint Issued/Checked: none ACTIVITY TOLERANCE: Patient's activity tolerance: fair AM-PAC 6 Clicks Daily Activity Raw Score:: 15 TREATMENT / EDUCATION / INTERVENTIONS: While performing [...] living, decreased functional mobility, decreased functional balance, decreased safety awareness and decreased endurance and activitytolerance. Patient continues to benefit from skilled Occupational Therapy to achieve the following functional goals. Short Term Goals: Goal Formation With patient Patient will perform grooming at edge of bed and independently Patient will perform supine to/from sit with moderate assist Patient will tolerate treatment 25 minutes and with good endurance Penitentiary Goal(s): Patient to discharge to appropriate next level of inpatient care. Plan: Plan: ADL training Functional transfer training Functional balance training Endurance training Bed mobility training Safety awareness If patient is discharged from the facility, this note serves as a discharge summary if further occupational therapy visits did not occur. Refer to filed flowsheet for further details. Following therapy session, patient left in bed, with call light within reach. * Chelle Mcclelland, PT - 05/19/2023 2:20 PM CDT [facility] Physical Medicine and Rehabilitation Physical Therapy Progress Note Patient: Gay Canales Med Record Number: [id number] Date of : 1990 Age: [age] year old Co-tx with OT due to skilled level of assist PPE worn by staff: gloves Recommendations: Discharge PT Discharge Recommendations: Patient would benefit from multidisciplinary therapy This recommendation is made due to ongoing PT functional needs: address functional deficits SUBJECTIVE: Pt agreeable to PT Pain Assessment: Pain Location #1 Pain Scale/Observation: Numeric (0-10) Pain Rating Score #1: 0 (however, with movement, does report pain in sitting in buttocks) PRECAUTIONS: Weight Bearing Status: (NWB R LE) Activity Level: Up ad rebekah OBJECTIVE: At start of therapy session, patient found in bed and with no alarm General Appearance: Obese adult female, in bed, NAD LDAs: IV's: Peripheral line Vitals: (*Assess the 3 levels of oxygen saturations both for room air and 02 unless rest on room air is 88% or less). Rest BP: 149/84 HR: 79 Sp02 Sp02 99% 3 L O2 Ex/Gait/Activity Without 02 BP: HR: Sp02 87% Room Air Ex/Gait/Activity With 02 BP: HR: Sp02 L O2 Post Activity BP: HR: Sp02 Sp02 95% 3L O2 Observations: pt has no c/o dizziness or shortness of breath with activity Mental Status/Cognition: Level of Consciousness-Adult: Alert Orientation Level: Oriented X4 Cognition: Follows Commands-Consistent;Processing-Appropriate;Judgement-appropriate;Safety awareness-appropriate Awareness of Errors: Assistance required to identify errors made Problem Solving: Assistance required to implement solutions Mobility: A gait belt and non-slip socks were used for all out of bed activity this date. Bed Mobility: Supine to Sit: Maximum Assistance;X 2 (PT managed L LE) with HOB in semi-fowlers position Sit to Supine: Moderate Assistance (assisted R LE into bed) Transfers: Sit to Stand: Activity Does Not Occur (pt with AKA on L LE and NWB R LE) Gait: Weight Bearing Status: (NWB R LE) Distance Ambulated: 0 FEET Balance: Balance Scales/Tests Used: Sitting: Static/Dynamic Sitting - Static: Fair - Sitting - Dynamic: Poor + ACTIVITY TOLERANCE: Patient's activity tolerance: fair. TREATMENT/INTERVENTIONS: strengthening exercises, bed mobility training, balance activities and monitoring of vitals AM-PAC 6 Clicks Mobility Raw Score:: 8 EDUCATION: While performing PT, Patient was instructed in:functional mobility training, safety awareness/fall precautions , home exercise program, discharge planning, use of call light Presented to patient who demonstrates Good understanding of instructions given. ASSESSMENT: Patient would benefit from additional Physical Therapy sessions to achieve the following functionalgoals to enhance independence. Short Term Goals: Goal Formation With patient Patient will perform bed mobility with minimal assist Patient will transfer bed to/from chair with maximal assist and with appropriate assistive device Patient will perform home exercise program independently Penitentiary Goal(s): Patient to discharge to appropriate next level of inpatient care. ?? INFORMED CONSENT TO TREATMENT: Plan of care including recommended therapy, goals and frequency, discussed with patient who understands and agrees to proceed. Equipment Issued: none Plan: Patient continues to benefit from skilled therapy services., Continue with goals as established. If patient is discharged from the facility, this note serves as a discharge summary if further physical therapy visits did not occur. Refer to filed flowsheet for further details. Following therapy session, patient left in bed, with call light within reach. * Nguyen Rodriguez RN - 05/19/2023 11:58 AM CDT Care Coordination Initial Assessment Anticipated Discharge Date: 05/22/23 Transportation at Discharge: Ambulance Anticipated level of care at discharge: Custodial - Skilled Facility Anticipated level of care provider: None Prior to admission level of care: Custodial - Skilled Facility Prior to admit provider: None Plans: Discharge needs identified. See progress notes for details. Case Management to follow for discharge planning. Comments: Lives with: Other (Comment) ([facility]) Physical Limitations: Wheelchair Bound Requires Assistance With: Mobility;Housekeeping;Meal Preparation;Medication Administration;Shopping [facility] [phone] [facility] [phone] [facility] [phone] Advance Directive: No Advance Directive Information Given: Yes, information given Would you like assistance on completing and executing or revising an Advance Directive?: No READMISSION RISK SCORE is 22 at 11:59 AM 05/19/2023. Met with patient Family Support (name and phone): Extended Emergency Contact Information Primary Emergency Contact: Silvia Resendiz Mobile Relation: Mother Anti Air Warfare Operations Officer needed? No Secondary Emergency Contact: GAYE NUNEZ Mobile Relation: Sister Anti Air Warfare Operations Officer needed? 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 no Patient/Family provided with list of resources? 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 For any questions or needs please contact: Optical Effects Camera Operator Name/Phone number: Nguyen Rodriguez RN [phone] * Masha Finley RN - 05/19/2023 10:24 AM CDT Images from the original note were not included. WOUND OSTOMY NURSE CONSULT NOTE Gay Canales is an 32 year old femalewho has leg wound, present on admission. This consultation was requested by Will Burt MD. History Social History Substance and Sexual Activity Alcohol Use Not Currently Comment: Occassionally Social History Tobacco Use Smoking Status Former ??? Types: Cigarettes ??? Start date: 2010 Smokeless Tobacco Never Tobacco Comments Quit 4-5 months after starting Vaping Use ??? Vaping Use: Never used Past Medical History: Diagnosis Date ??? Essential (primary) hypertension ??? Heart failure (CMS/HCC) ??? Type 2 diabetes mellitus without complications (CMS/HCC) Past Surgical History: Procedure Laterality Date ??? [...] (one) tablet by mouth once daily ??? blood glucose (OneTouch Verio) test strip [...] daily with morning and evening meal ??? carvedilol (Coreg) 12.5 MG tablet Take 1 (one) tablet by mouth 2 times daily with morning and evening meal ??? cefTRIAXone 2 g 2,000 mg in 0.9% NaCl IV 0.9 % 50 mL 2,000 (two thousand) mg by Intravenous route every 24 hours for 28 days ??? FeroSul 325 (65 Fe) MG tablet Take 1 (one) tablet by mouth daily with breakfast ??? gabapentin (Neurontin) 100 MG capsule Take 1 (one) capsule by mouth 3 times daily ??? insulin lispro (HumaLOG;ADMelog) 100 UNIT/ML pen Inject 0 (zero) Units to 6 (six) Units subcutaneously 3 times daily with meals ??? Lancets (RecruitTalkTOUCH DELICA PLUS 33G EXTRA FINE LANCET) USE ONE LANCET TO PRICK FINGER FOUR TIMES DAILY FOR BLOOD GLUCOSE TESTING 100 Each PRN ??? melatonin 3 MG tablet Take 1 (one) tablet by mouth nightly as needed for Insomnia ??? metroNIDAZOLE (Flagyl) 500 MG tablet Take 1 (one) tablet by mouth every 8 hours for 29 days ??? nystatin (Mycostatin) 693804 UNIT/GM powder Apply to affected area 3 times daily ??? potassium chloride ER (Klor-Con M) 20 MEQ tablet Take 1 (one) tablet by mouth daily with breakfast ??? vancomycin 750 mg in 0.9% NaCl IV 0.9 % 250 mL 750 (seven hundred fifty) mg by Intravenous route every 24 hours for 28 days Data Review: Chemistry: Lab results smartLinks are not currently available CBC: Lab results smartLinks are not currently available Assessment Vitals: 05/18/23 1603 05/18/23 1844 05/18/23 2108 05/19/23 0400 BP: 139/84 139/84 138/78 Pulse: 81 81 78 Resp: 18 16 Temp: 98 ??F (36.7 ??C) 97 ??F (36.1 ??C) SpO2: (!) 84% (!) 89% Weight: (!) 139.3 kg (307 lb) Height: pt assessed at the bedside, Nurses Cata and Ange declined to assist me with turning pt to assess her sacrum at this time, here or morning med pass. Pt is on a bariatric bed, adjusted pulsate. Left LE amputation, appears well healed. Right LE with lymphedema positive Stemmer's sign to base of second toe Pt BMI is 48. Plantar calcaneal ulcer, appears dry, Previous admission it was recommended for right knee amputation, pt declined. Wound measures approx3 X 2 X 0.7cm. Right lower quadant on the abdomen, pt states it started as a blister from wearing pants that were tight, approx 1 month ago. Open wound is approx 3 X 5cm. Purulent drainage is noted on the dressing. Able to assess sacrum/buttocks: Discoloration to the folds and buttocks/posterior thighs, pressure vs fungal. Pt tells me she wearsbriefs at the facility and is not changed very often. Pain Assessment Pain Location #1 Pain Scale/Observation: Numeric (0-10) Pain Rating Score #1: 0 Sedation Level #1: S-Sleeping, easy to arouse Goal Numeric Pain Scale: 0 Functional Goal: Ability to adequately rest Functional Goal Met?: Yes Pain Location : Ankle;Foot Pain Orientation: Right Pain Quality: Aching Aggravating Factors: Activity Relieved By: Rest Behaviors/Assumed Pain Present : Asleep/Resting with eyes closed Additional pain sites?: No Bhavin Score Bhavin Scale - Adult Sensory Perception: Slightly Limited Moisture: Occasionally Moist Activity: Bedfast Mobility: Very Limited Nutrition: Adequate Friction and Shear: Potential Problem Total Score: 14 Recommendations: Prevention measures: - Large sacral Mepilex prevention dressing for patients with contained/managed incontinence, changeq 3 days and prn when soiled - Pillows and wedges for repositioning, draw sheet - Frequent Side to side turning/repositioning - Reduce Friction/Shear - Lift patient in bed with sheet or pad. DO NOT PULL OR DRAG - HOB at 30 degrees or below when medically feasible - Off load heels with heel boots if patient cannot move legs spontaneously - Moisture/incontinence protection - dry skin well, apply protective barrier cream/ointment bid andprn - All external devices (braces/collars/etc) - follow policy guidelines for skin assessment and management - Bariatric low air loss pulsate bed for patients with BMI > 40 or body habitus not allowing forsacral off loading. Right lower quadrant ulcer: VASHE soak: Wound Cleansing with VASHE: Wet gauze(s) with the solution, wring to remove excess solution, apply compress(es) to undermining/sinus/tunnel and wound bed. Allow a soak-time of: ??? 3-5 minutes for suspected bio-film, scant to light slough Remove the compresses. Cleanse the wound and kaylee-wound skin with the solution using solution-soaked gauzes and gently butfirmly cleanse to remove much of loosened slough/necrotic tissue as possible. Pat the wound bed to fruit picker excess solution, pat dry the periwound skin. Apply Aquacel AG and cover with mepilex border dressing. Change every 3 days and PRN. Right plantar heel ulcer: Betadine wet to dry dressing daily. Sween cream from base of toes to knees daily with bathing Masha Finley RN * Chelle Severino - 05/19/2023 8:02 AM CDT Images from the original note were not included. [facility] INTERNAL MEDICINE PROGRESS NOTE Patient: Gay Canales Sex: female Age: [age] year old Date of : 1990 Date of Admission: 05/17/2023 Date: 05/19/2023 LOS: 1 SUBJECTIVE Interval History: No acute overnight events. Patient states that she is doing well today, RUE swelling is going down.Denies shortness of breath, lying comfortably on RA. Hospital Course: Gay Canales is a 32 y/o female with PMH of T2DM, HTN, CHF, left foot gangrene s/p AKA, diabetic right foot osteomyelitis on abx via PICC, who presented from SNF facility with complains of right arm swelling. In ED, afebrile, BP running in 160-170s/90s, also found to be hypoxic to 86% and placed on3-4L of oxygen in ED. Her labs showed BNP of 476, cr 1.8(baseline), AKP 179, alb 1.5. Chest xray showed pulm edema and cardiomegaly. CTA chest negative for PE but showed moderate pleural effusion, small to moderate pericardial effusions, and diffuse body wall edema She was found to be volume overloaded; lasix 40mg bid was initiated for diuresis and increased to q8h. Continued IV vancomycin, IV CTX, and flagyl PO for osteomyelitis. 05/17 BC + gram positive cocci in clusters. RUE doppler with DVT in right brachial vein at the IV site. OBJECTIVE Vital Signs: Vitals: 05/18/23 1603 05/18/23 1844 05/18/23 2108 05/19/23 0400 BP: 139/84 139/84 138/78 Pulse: 81 81 78 Resp: 18 16 Temp: 98 ??F (36.7 ??C) 97 ??F (36.1 ??C) SpO2: (!) 84% (!) 89% Weight: (!) 139.3 kg (307 lb) Height: Temp Min: 97 ??F (36.1 ??C) Max: 98.6 ??F (37 ??C), Pulse Min: 78 Max: 96, Resp Min: 8 Max: 27, BP Min: 132/82 Max: 178/99 Intake & Output: In: 460 [P.O.:460] Out: 2950 [Urine:2950] Physical Exam: General: Alert and oriented, no acute distress, obese habitus HEENT: Normocephalic and atraumatic. Mouth: Oral cavity and pharynx pink and moist. Neck: Trachea is midline. Cardiac: RRR. Normal S1 and S2. No murmurs, rubs, or gallops. Pulmonary: Crackles in bilateral lung bases. No use of accessory breathing muscles. Abdominal: Soft, open wound to RLQ with purulent drainage Extremities: 3+ pitting edema of RLE with plantar ulcer, Left AKA present Current Medications: Scheduled: ??? 0.9% NaCl 3 mL Intracatheter q8h ??? carvedilol 12.5 mg Oral BID WC ??? cefTRIAXone (Rocephin) 2,000 mg in 0.9% NaCl IV 50 mL IVPB 2,000 mg Intravenous q24h ??? ferrous sulfate 325 mg Oral QDAY WITH BREAKFAST ??? furosemide 80 mg Intravenous BID ??? gabapentin 100 mg Oral TID ??? heparin 7,500 Units Subcutaneous q8h ??? insulin aspart 0-6 Units Subcutaneous TID WC ??? iopamidol Intravenous Contrast - Once ??? metroNIDAZOLE 500 mg Oral q8h ??? vancomycin 750 mg Intravenous QDAY ??? vancomycin (VANCOCIN) IV dose per pharmacy Does not apply DIRECTED Continuous: PRN: ??? SALINE LOCK, INSERT AND MAINTAIN AND 0.9% NaCl AND 0.9% NaCl ??? dextrose IV for hypoglycemia OR dextrose IV for hypoglycemia ??? glucagon ??? glucose (Diabetic Use) ??? glucose (Diabetic Use) gel ??? glucose chew tab ??? melatonin Significant Lab Results: CBC: Recent Labs Component Name 05/19/23 0638 05/18/23 0617 05/17/23 2151 WBC 6.1 8.0 8.1 HGB 8.9* 9.2* 9.2* HCT 30.9* 31.4* 31.7* MCV 93.4 93.2 92.7 Coagulation Panel: Recent Labs Component Name 04/26/23 0629 PT 16.3* INR 1.3 PTT 29.8 CMP: Recent Labs Component Name 05/19/23 0638 05/18/23 0617 05/17/23 2151 NA 141 144 144 POTASSIUM 3.8 3.6 3.9 CL 111* 111* 111* CO2 27 25 26 BUN 12 16 15 CREATININE 1.68* 1.71* 1.78* CALCIUM 8.0* 8.0* 7.8* ALB 1.4* 1.5* 1.5* ALT 5 6 7 AST 10 11 9 Recent Labs Component Name 05/19/23 0638 05/18/23 0617 05/09/23 0357 MAGNESIUM 2.0 2.1 2.1 Recent Labs Component Name 05/19/23 0638 05/18/23 0617 05/09/23 0357 PHOS 4.6 4.2 4.8 Hepatic Panel: Recent Labs Component Name 05/19/23 0638 05/18/23 0617 05/17/23 2151 AST 10 11 9 ALT 5 6 7 ALKPHOS 160* 175* 179* TBILI 0.1* 0.2 0.1* ALB 1.4* 1.5* 1.5* ABG: Recent Labs Component Name 05/17/23 2206 12/03/22 1856 PH 7.39 7.28* Amylase/Lipase: Invalid input(s): AMYL, LIPA Thyroid Studies: No results for input(s): TSH, T4 in the last 45462 hours. Cardiac Enzymes: Recent Labs Component Name 04/27/23 0729 12/02/221954 CKTOTAL 1,624* - TROPONINI - 0.023 Lipid Panel: Recent Labs Component Name 12/02/222032 LDLCALC 74 HDL 8* UA: No components found for: UA Microbiology: Microbiology Results (Displays last 21 days for this encounter ONLY) Procedure Component Value - Date/Time CULTURE BLOOD [[id number]] (Abnormal) Collected: 05/17/232150 Lab Status: Preliminary result Specimen: Blood Peripheral Updated: 05/19/23 0754 Gram Stain Gram-positive cocci in clusters Narrative: Positive at 16.5 hours. BCID PANEL [[id number]] (Abnormal) Collected: 05/17/232150 Lab Status: Final result Specimen: Blood Peripheral Updated: 05/18/23 2144 Staphylococcus epidermidis Detected Narrative: Blood Culture ID Panel performed by [employer] multiplex PCR. Test Panel includes: Antimicrobial Resistance Genes: Mec A/C and MREJ (methicillin-resistance gene-MRSA) and van A/B (vancomycin- resistance gene). Gram Positive Bacteria: Enterococcus faecalis, Enterococcus faecium, Staphylococcus (genus), Staphylococcus aureus, Staphylococcus epidermidis, Staphylococcus lugdunensis, Streptococcus (genus), Streptococcus agalactiae (Group B), Streptococcus pneumoniae, Streptococcus pyogenes (Group A). CULTURE BLOOD [[id number]] (Normal) Collected: 05/17/23 2140 Lab Status: Preliminary result Specimen: Blood Peripheral Updated: 05/19/23 0200 Culture No growth 24 hours SARS-COV-2 (COVID-19) RAPID [[id number]] (Normal) Collected: 05/09/23 1305 Lab Status: Final result Specimen: Microbiology from Nasopharyngeal Updated: 05/09/23 1410 COVID-19 PCR Not detected Narrative: The BIOe[employer] Xpert Xpress SARS-COV-2 has been authorized by the Food and Drug Administration (FDA) under an Emergency Use Authorization (EUA). This test has been validated in accordance with the FDA'sguidance document Policy for Diagnostic Testing in Laboratories [...] this EUA assay are available upon request. C DIFFICILE GDH AG + TOXIN A+B [[id number]] (Normal) Collected: 05/03/23 0238 Lab Status: Final result Specimen: Stool from Feces Updated: 05/03/23 0829 C difficile GDH antigen & toxin A/B NEGATIVE Narrative: Negative for toxigenic C. difficile Imaging & Studies: XR CHEST 1VW PORTABLE Result Date: 05/18/2023 PROCEDURE: XR CHEST 1VW PORTABLE, DATE/TIME OF EXAM: 05/17/2023 9:59 PM, LOCATION [facility] INDICATION: R09.02: Hypoxia ADDITIONAL CLINICAL INFORMATION: Ordering Provider Reason ForExam: r/o PNA COMPARISON: Chest x-ray from 04/27/2020 FINDINGS/IMPRESSION: A right PICC line is identified terminating in the right atrium. Improvement of mild pulmonary edema. There are small bilateral pleural effusions with lower lung atelectasis. No pneumothorax. Unchanged cardiomegaly. Report dictated by Golden Kiser DO (client services vice president). Arthur Kim MD have personally reviewed and interpreted this examination/study. > Interpreting Provider: Arthur Avery MD on 05/18/2023 10:[address] HUMERUS RIGHT W CONTRAST Result Date: 05/18/2023 PROCEDURE: CT HUMERUS RIGHT W CONTRAST, DATE/TIME OF EXAM: 05/18/2023 1:14 AM, LOCATION [facility] INDICATION: M79.89: Arm swelling ADDITIONAL CLINICAL INFORMATION: Ordering ProviderReason For Exam: cellulitis at PICC line site [...] in place, likely within the brachial vein. IMPRESSION: 1.Diffuse subcutaneous stranding throughout the imaged upper arm and chest wall is likely secondary to volume overload status in the setting of heart failure, less likely cellulitis. 2.Nofocal fluid collections identified to suggest abscess. > Dictated by Robert Woodruff MD (client services vice president). Sorin Kim have personally reviewed and interpreted this examination/study. > Interpreting Provider: Sorin Veronica on 05/18/2023 1:[address] ANGIO CHEST PULM EMBOLISM Result Date: 05/18/2023 PROCEDURE: CT ANGIO CHEST PULM EMBOLISM, DATE/TIME OF EXAM: 05/18/2023 1:14 AM, LOCATION [facility] INDICATION: R09.02: Hypoxia ADDITIONAL CLINICAL INFORMATION: Ordering Provider Reason For Exam: r/o PE Additional: 32-year-old female with a history of heart failure [...] peripheral subsegmental branches limited due to suboptimal con trast bolus timing. Thoracic Vasculature: No vascular abnormality [...] no suspicious lytic or blastic lesions. The visibleosseous structures are intact. Upper Abdomen: Diffuse subcutaneous [...] 4.Cardiomegaly. > Dictated by Robert Woodruff MD (client services vice president). I, Sorin Veronica have personally reviewed and interpreted this examination/study. > Interpreting Provider: Sorin Veronica on 05/18/2023 1:37 PM MRI TIBIA FIBULA RIGHT WWO CONT Result [...] report was drafted by Dante Schultz MD (certified prosthetist vice president) I, Arthur Avery MD have personally reviewed [...] report was drafted by Dante Schultz MD (certified prosthetist vice president) I, Arthur Avery MD have personally reviewed [...] type 2 diabetes mellitus, unspecified ulcer stage ([facility]) COMPARISON: Radiograph of the right foot dated [...] report was drafted by Dante Schultz MD (certified prosthetist vice president) I, Arthur Avery MD have personally reviewed and interpreted this e xamination/study. > Interpreting Provider: Arthur Avery MD on 04/28/2023 9:35 AM XR CHEST 1VW PORTABLE Result Date: 04/27/2023 PROCEDURE: XR CHEST 1VW PORTABLE, DATE/TIME OF EXAM: 04/27/2023 5:51 AM, LOCATION [facility] INDICATION: E11.621: Diabetic ulcer of left heel associated with type 2 diabetes mellitus, unspecified ulcer stage (CMS/HCC) L97.429: Diabetic ulcer of left heel associated with type 2 diabetes mellitus, unspecified ulcer stage ([facility]/HCC) ADDITIONAL CLINICAL INFORMATION: Ordering Provider Reason For Exam: baseline cxr COMPARISON: Chest x-ray from 04/26/2023. FINDINGS/IMPRESSION: Right upper extremity PICC terminating in superior vena cava. Diffuse interstitial and airspace opacities compatible with pulmonary edema or pneumonia. No pneumothorax. Cardiac silhouette is enlarged. > Dictated by Dante Schultz MD (client services vice president). Xander Kim MD have personally reviewed and interpreted this examination/study. > Interpreting Provider: Xander De Guzman MD on 04/27/2023 11:13AM XR FOOT RIGHT 2VW Result Date: 04/26/2023 PROCEDURE: XR FOOT RIGHT 2VW, DATE/TIME OF EXAM: 04/26/2023 1:47 PM, LOCATION [facility] INDICATION: E11.621: 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, unspecified ulcer stage ([facility]/HCC) L97.419: 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, unspecified ulcer stage ([facility]) ADDITIONAL CLINICAL INFORMATION: Ordering Provider Reason For [...] swelling. Report dictated by Golden Kiser DO (client services vice president) 04/26/2023 2:42 PM. Xander Kim MD have personally reviewed and interpreted this examination/study. > Interpreting Provider: Xander De Guzman MD on 04/26/2023 5:41 PM XR CHEST 1VW PORTABLE Result Date: 04/26/2023 PROCEDURE: XR CHEST 1VW PORTABLE, DATE/TIME OF EXAM: 04/26/2023 8:51 AM, LOCATION [facility] INDICATION: E11.621: Diabetic ulcer of left heel [...] pneumothorax identified. Report dictated by Golden Kiser DO(client services vice president). I, Xander De Guzman MD have personally [...] QTC Calculation (Bezet) 452 ms Calculated P [place] 43 degrees Calculated R [place] 7 degrees Calculated T [place] 26 degrees Interpretation EKG NORMAL SINUS RHYTHM NORMAL ECG Confirmed by ANDRE WHITTAKER MD ([id number]) on 05/18/2023 11:42:30 AM ASSESSMENT & PLAN Acute on chronic congestive heart failure, unspecified heart failure type (CMS/HCC) (POA: Yes) Swelling of right upper extremity (POA: Yes) Gay Canales is a 32 year old female with PMH of T2DM, HTN, CHF, left foot gangrene s/p LKA, diabetic right foot osteomyelitis with PICC line abx, who presented from SNF facility with complains of right arm swelling. Found to be in fluid overload and bacteremic with RUE DVT at PICC site. #Acute hypoxic respiratory failure #HFpEF -Most likely due to her pulmonary edema -Chest xray with bilateral pulmonary edema and cardiomegaly -CTA showed no PE and moderate pleural effusion, small to moderate pericardial effusions, and diffuse body wall edema. -BNP 476 - Last ECHO from EF 60% with mildly enlarged LVW. LV Diastolic parameters normal. -Plan: - Increase to IV lasix 40 mg q8h - NC oxygen 3-4L. Note: patient takes it off as needed. - Low salt diet #Right arm swelling #Right foot osteomyelitis #Bacteremia - Most likely due to pulling of her PICC line - No redness or discharged noted - Vascular Surgery and ID consulted last admission and advised for RKA but patient declined - BC: gram positive cocci in clusters at 16 and 29 hours Plan: - Resuming her IV Vancomycin, IV CTX and Flagyl PO and EOT 06/07/23 - Wound Consult - Obtain PIV access. If PIV access obtained, d/c PICC line with eventual PICC line re-insertion (consult IR) after resolution. If no PIV access, consult IR to pull back PICC line #RUE DVT - At access site, R brachial artery - See above for PICC catheter plan - Start apixaban 10mg BID x 7days ?? #CKD 3B #Hypoalbuminemia - Baseline cr 1.4-1.8 - Baseline cr 1.8 - Avoid Nephrotoxins - Labs consistent with nephrotic syndrome (Alb 1.4, UPCR 10.70), likely diabetic nephropathy - Start Lisinopril 10 mg once daily PO #HTN - Resume home dose coreg 12.5 mg bid po and titrate for higher BP - Holding home dose amlodipine due to leg edema ?? #T2DM - Likely has diabetic nephropathy - ACCU Checks - SSI Code: Full Diet: Low salt cardiac Electrolytes: Replete PRN PPx: Apixaban Access: PICC, attempting PIV Dispo: Inpatient hospitalization The above assessment and plan will be discussed with the attending. This note is not final until attested by attending physician. Chelle Maycol MS4 [facility] 05/19/2023 8:03 AM Associated attestation - Jed Stevenson MD - 05/19/2023 5:37 PM CDT I have personally seen and examined the patient today, 05.19.23. I have reviewed imaging studies andlaboratory tests and have discussed the patient in detail with the resident(s). I concur with theirdocumented assessment and plan by the student note which I have edited to reflect my findings. would clarify the following diagnoses and/or plan elements: None Grey Stevenson MD * Marlon Bal RN - 05/19/2023 4:48 AM CDT Problem: Fall Risk Goal: Fall risk and fall related injury risk are minimized (interventions related to the fall risk can be found in the flowsheet documentation) Outcome: Progressing * Stacy Neri RN - 05/18/2023 6:00 PM CDT Problem: Fall Risk Goal: Fall risk and fall related injury risk are minimized (interventions related to the fall risk can be found in the flowsheet documentation) Outcome: Progressing Problem: Transfers Goal: STG - Transfer from bed to chair Outcome: Progressing * Laisha Lauren PT - 05/18/2023 1:41 PM CDT [facility] Physical Medicine and Rehabilitation Physical Therapy Initial Evaluation Note Patient: Gay Canales Med Record Number: [id number] Date of : 1990 Age: [age] year old PPE worn by staff: gloves Recommendations: Discharge PT Discharge Recommendations: Patient would benefit from intensive 3-hour multidisciplinary therapy This recommendation is made due to ongoing intensive PT functional needs: ability to actively participate in intensive therapy 3 hours/day, 5 days a week;patient has the need for more than one skilled therapy service;motivated to participate in therapy;patient and/or caregiver require specialized tr aining;patient demonstrates a significant functional decline and would benefit from skilled therapyintervention to restore function In addition to the 1:1 evaluation of the patient, additional eval time was spent completing the chart review prior to the assessment, completing the multidisciplinary plan of care and education plan post evaluation and communicating results of the eval to other treatment team members. Occupational Therapy contacted regarding patient status and/or discharge plan. Physician Orders: Evaluation and Treat PRECAUTIONS: Weight Bearing Status: (no restrictions) Activity Level: Up ad rebekah DIAGNOSIS: Patient Active Problem List: Type II or unspecified type diabetes mellitus without mention of complication, not stated as uncontrolled ([facility]) Intentional overdose of drug in tablet form ([facility]) Severe recurrent major 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 psychotic features ([facility]) PTSD (post-traumatic stress disorder) CHF (congestive heart failure) ([facility]) Left foot infection Hypoxia Essential hypertension Swelling of left foot Bacteremia due to Gram-positive bacteria S/P AKA (above knee amputation) unilateral, left ([facility]) 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 ([facility]) Anemia Acute on chronic congestive heart failure, unspecified heart failure type ([facility]) Swelling of right upper extremity Past Medical History: Diagnosis Date ??? Essential (primary) hypertension ??? Heart failure ([facility]) ??? Type 2 diabetes mellitus without complications ([facility]) SUBJECTIVE: Subjective: Pt is agreeable to PT evaluation. She states that she has not gotten to work with therapy yet at new facility and she has only been out of bed a couple of times. She says that she is hoping to use a prosthetic in the future. PATIENT GOALS: Home Situation: Type of Residence: Other (Currently at SNF, but when DCed from SNF, will go to live with her sister.) Steps to Enter: (will have 3-4 ANTONIO at sister's home) Equipment at Home: Chair-Shower;Walker-2 Wheeled;Wheelchair-Standard;Commode-Bedside (all of this equipment is at pt's sister's home) Prior Level of Functioning: Prior Level of Function Mobility: Non-Ambulatory;Other (Comment) (staff at [facility] currently using a valerie for transfers) Have Help at Home?: Yes, there is help at home now Who assists you at home?: Staff How often is assistance provided?: 26/05 care at SNF Level of Help Sufficient?: Yes Oxygen at Home: No Activity at Home: Sedentary Vision: Corrected with glasses (needs new presciption and currently getting injections at eye doctor) Hearing Exceptions: No impairment Pain Assessment: Pain Location #1 Pain Scale/Observation: Numeric (0-10) Pain Rating Score #1: 0 OBJECTIVE: At start of therapy session, patient found in bed. General Appearance: 32 yo F in NAD, resting LDAs: PICC and external urinary device Edema: significant edema noted in right lower extremity and significant edema noted in left lower extremity Vitals: (*Assess the 3 levels of oxygen saturations both for room air and 02 unless rest on room air is 88% or less). Rest BP: 142/81 (98) HR: 79 Sp02 Sp02 93 Room Air L O2 RA Observations: Pt without any SOB, dizziness, or signs/symptoms of distress. Mental Status/Cognition: Level of Consciousness-Adult: Alert Orientation Level: Oriented X4 Cognition: Follows Commands-Consistent ROM: RUE: AROM WFL LUE: AROM WFL RLE: AROM WFL LLE: AROM WFL Strength: RLE:deficits noted LLE: deficits noted Globally 4/5 in B LEs Tone: RLE: no abnormal tone noted LLE: no abnormal tone noted Coordination: RLE: not tested LLE: not tested Sensation: RUE: no complaints of numbness or tingling LUE: no complaints of numbness or tingling RLE: no complaints of numbness or tingling LLE: no complaints of numbness or tingling Mobility: A gait belt and non-slip socks were used for all out of bed activity this date. Bed Mobility: Supine to Sit: Moderate Assistance (PT assisted with L LE) with HOB in semi- fowlers position Sit to Supine: Moderate Assistance (PT assisted R LE into bed) Transfers: Sit to Stand: Activity Does Not Occur Anticipate that pt would be able to use a standing aid or sliding board with practice to transfer bed <> chair. Gait: Weight Bearing Status: (no restrictions) Distance Ambulated: 0 FEET Balance: Balance Scales/Tests Used: Sitting: Static/Dynamic Sitting - Static: Good;With One Upper Extremity Support Sitting - Dynamic: Fair +;With One Upper Extremity Support Sits EOB with 1 UE support and SUPV. ACTIVITY TOLERANCE: Patient's activity tolerance: fair TREATMENT/INTERVENTIONS: evaluation AM-PAC 6 Clicks Mobility Raw Score:: 9 EDUCATION: While performing PT, Patient was instructed in:functional mobility training, safety awareness/fall precautions , home exercise program, discharge planning, use of [...] patient Patient will perform bed mobility with minimal assist Patient will transfer bed to/from chair with maximal assist and with appropriate assistive device Patient will perform home exercise program independently Registration Manager Goal(s): Patient to discharge to appropriate next level of inpatient care. Equipment Issued: none Plan: Plan: Gait training Transfer training Assistive device training Endurance training Bed mobility training Balance training Energy conservation techniques Safety awareness Home exercise program training If patient is discharged from the facility, this note serves as a discharge summary if further physical therapy visits did not occur. Refer to filed flowsheet for further details. Following therapy session, patient left in bed, with call light within reach, with RN, Stacy aware. Laisha Lauren, PT 05/18/2023 4:12 PM * Harpreet Garcia, PharmD - 05/18/2023 8:50 AM CDT ACTIVE CONSULTS TO PHARMACY/DISEASE STATE MONITORING Pharmacy Consult: Vancomycin ASSESSMENT/PLAN Indication: documented osteomyelitis of R calcaneus with AUC goal 400 - 600 ID consulted/following: No, but were consulted previous admission and set EOT 06/07 Assessment: Day of treatment: End of treatment date: 06/07 per last admission Current dosing regimen: 750 mg, Q24 hr has been receiving at [facility] Renal assessment: considered stable at this time as patient has Estimated Creatinine Clearance: 70.6 mL/min (A) (by C-G formula based on SCr of 1.71 mg/dL (H)). MRSA positiveNo Random level on 05/18 at 0617 was 11.0 mcg/ml. This level was likely approximately 24 hours after last dose. Depending on when NC was administering doses but appears to be clearing well at this time on current regimen Recent Labs Component Name 05/18/23 0617 05/09/23 0357 05/08/23 0841 05/06/23 0413 05/05/23 0409 05/04/23 0636 04/29/23 0338 04/28/23 0319 04/27/23 2019 04/27/23 0729 VANCORNDM 11.0 - - 17.1 11.7 15.3 - - - - VANCTROUGH - 19.5 - - - - - 34.6* - - VANCOPEAK - - 26.1 - - - - - 46.6* 42.0* - = values in this interval not displayed. Plan Dosing: Will continue current regimen. Monitoring Will order a vancomycin peak level after maintenance dose on 05/20/23 at 0900 and trough level priorto maintenance dose on 05/21/23 at 0400 and adjust regimen if indicated. Continue to monitor patient???s renal function and cultures as needed. Harpreet Garcia, PharmD 05/18/2023 8:39 AM [facility] Vancomycin Guideline SUBJECTIVE/OBJECTIVE Gay Canales is a 32 year old female. The primary encounter diagnosis was Arm swelling. Diagnosesof Hypoxia and Acute on chronic congestive heart failure, unspecified heart failure type (CMS/HCC) were also pertinent to this visit. Height: 5' 7 (170.2 cm) Wt 140.1 kg (308 lb 14.4 oz) Body mass index is 48.38 kg/m??. Recent Labs Component Name 05/18/23 0617 05/17/23 2151 05/09/23 0630 05/09/23 0357 05/08/23 0635 CREATININE 1.71* 1.78* - 1.83* 1.80* BUN 16 - 17 16 WBC 8.0 8.1 7.9 - 8.2 @[id number]@ Dialysis Orders (72h ago, onward) None Radiocontrast within 72 hours The 3 most recent administrations since 05/15/2023 are shown below each listed medication. Other Order Route Dose Action Date iopamidol (Isovue 370) 76 % contrast Intravenous 125 mL $ Given - Contrast 05/18/2023 Vancomycin Administrations from MAR (last 72 hours) None * Laisha Lauren, PT - 05/18/2023 8:24 AM CDT [facility] Department of Physical Medicine & Rehabilitation Progress Note Patient: Gay Canales Med Record Number: [id number] Date of : 1990 Age: [age] year old 05/18/23 0824 Missed Visit Missed Visit No Activity Order Activity order required to initiate physical therapy evaluation. Please update orders to include activity order. * Anabel Lees OT - 05/18/2023 8:11 AM CDT [facility] Department of Physical Medicine & Rehabilitation Progress Note Patient: Gay Canales Med Record Number: [id number] Date of : 1990 Age: [age] year old 05/18/23 0800 Missed Visit Missed Visit No Activity Order Activity order required to initiate therapy evaluation. * Suzanna Jennings RN - 05/18/2023 6:42 AM CDT Pt came from ED, blood pressure and heart rate stable. Will continue to monitor patient. documented in this encounter H&P Notes * Will Burt MD - 05/18/2023 3:59 AM CDT [facility] INTERNAL MEDICINE HISTORY & PHYSICAL NOTE Date of Admission: 05/17/2023 Patient: Gay Canales Sex: female Age: [age] year old Date of : 1990 Code Status: Full Code SUBJECTIVE Chief Complaint: Right Arm Swelling History of Present Illness: Ms. Gay Canales is a 32 Y O F with PMH of T2DM, HTN, CHF, left foot gangrene s/p LKA, diabetic right foot osteomyelitis, who presented from SNF facility with complains of right arm swelling and presented to General Medicine Services for further management. She is recently discharged from [facility] withosteomyelitis of the foot, Vascular Surgery and ID consulted, She was recommended that she undergo RBKA but she refused and discharged with PICC line and IV antibiotics ceftriaxone and vancomycin with EOT 06/07/23. She mentioned she started noticing swelling of her right arm since yesterday after getting her arm cleaned by her nurse at her SNF facility but denies any pain or redness in arm, fever, SOB, CP, N/V/D/abdo pain/any urine problems. On exam she has 1-2 bilateral pedal exam. Bilateral crackles heard on lung exam. In ED, afebrile, BP running in 160-170s/90s, also found to be hypoxic to 86% and placedon 3-4L of oxygen in ED. Her labs showed BNP of 476, cr 1.8(baseline), AKP 179, alb 1.5. BC pending. Chest xray showed bilateral pedal edema and cardiomegaly. CTA chest negative for PE but showed moderate pleural effusion, small to moderate pericardial effusions, and diffuse body wall edema. She also mentioned that on last admission her edema has improved with lasix and her lasix was discontinuedon last admission and she has started noticing more swelling in her lower limbs after that. Past Medical History: Past Medical History: Diagnosis [...] of Health Financial Resource Strain: Low Risk (04/28/2023) Overall Financial Resource Strain (CARDIA) ??? Difficulty of Paying Living Expenses: Not hard at all Food Insecurity: No Food Insecurity (04/28/2023) Hunger Vital Sign ??? Worried About Running Out of Food in the Last Year: Never true ??? Ran Out of Food in the Last Year: Never true Transportation Needs: No Transportation Needs (04/28/2023) PRAPARE - Transportation ??? Lack of Transportation (Medical): No ??? Lack of Transportation (Non-Medical): No Stress: No Stress Concern Present (04/28/2023) [place] [place] [employer] - Occupational Stress Questionnaire ??? Feeling of Stress : Not at all Housing Stability: Low Risk (04/28/2023) Housing Stability Vital Sign ??? Unable to [...] (one) tablet by mouth once daily ??? blood glucose (OneTouch Verio) test strip [...] daily with morning and evening meal ??? carvedilol (Coreg) 12.5 MG tablet Take 1 (one) tablet by mouth 2 times daily with morning and evening meal ??? cefTRIAXone 2 g 2,000 mg in 0.9% NaCl IV 0.9 % 50 mL 2,000 (two thousand) mg by Intravenous route every 24 hours for 28 days ??? FeroSul 325 (65 Fe) MG tablet Take 1 (one) tablet by mouth daily with breakfast ??? gabapentin (Neurontin) 100 MG capsule Take 1 (one) capsule by mouth 3 times daily ??? insulin lispro (HumaLOG;ADMelog) 100 UNIT/ML pen Inject 0 (zero) Units to 6 (six) Units subcutaneously 3 times daily with meals ??? Lancets (RecruitTalkTOUCH DELICA PLUS 33G EXTRA FINE LANCET) USE ONE LANCET TO PRICK FINGER FOUR TIMES DAILY FOR BLOOD GLUCOSE TESTING 100 Each PRN ??? melatonin 3 MG tablet Take 1 (one) tablet by mouth nightly as needed for Insomnia ??? metroNIDAZOLE (Flagyl) 500 MG tablet Take 1 (one) tablet by mouth every 8 hours for 29 days ??? nystatin (Mycostatin) 668565 UNIT/GM powder Apply to affected area 3 times daily ??? potassium chloride ER (Klor-Con M) 20 MEQ tablet Take 1 (one) tablet by mouth daily with breakfast ??? vancomycin 750 mg in 0.9% NaCl IV 0.9 % 250 mL 750 (seven hundred fifty) mg by Intravenous route every 24 hours for 28 days Current Medications: Scheduled: ??? 0.9% NaCl 3 mL Intracatheter q8h ??? amLODIPine 10 mg Oral QDAY ??? carvedilol 12.5 mg Oral BID WC ??? cefTRIAXone (Rocephin) 2,000 mg in 0.9% NaCl IV 50 mL IVPB 2,000 mg Intravenous q24h ??? ferrous sulfate 325 mg Oral QDAY WITH BREAKFAST ??? furosemide 40 mg Intravenous BID ??? gabapentin 100 mg Oral TID ??? heparin 7,500 Units Subcutaneous q8h ??? insulin aspart 0-6 Units Subcutaneous TID WC ??? iopamidol Intravenous Contrast - Once ??? metroNIDAZOLE 500 mg Oral q8h ??? vancomycin (VANCOCIN) IV dose per pharmacy Does not apply DIRECTED Continuous: PRN: ??? SALINE LOCK, INSERT AND MAINTAIN AND 0.9% NaCl AND 0.9% NaCl ??? dextrose IV for hypoglycemia OR dextrose IV for hypoglycemia ??? glucagon ??? glucose (Diabetic Use) ??? glucose (Diabetic Use) gel ??? glucose chew tab ??? melatonin Review of Systems: Review of Systems Constitutional: Positive for malaise/fatigue. HENT: Negative. Eyes: Negative. Respiratory: Positive for cough. Cardiovascular: Positive for leg swelling. Gastrointestinal: Negative. Genitourinary: Negative. Musculoskeletal: Negative. Skin: Negative. Neurological: Negative. Endo/Heme/Allergies: Negative. Psychiatric/Behavioral: Negative. OBJECTIVE Vital Signs: Temp: [98.6 ??F (37 ??C)] 98.6 ??F (37 ??C) Pulse: [87-96] 87 Resp: [12-27] 27 BP: (162-178)/(76-99) 167/99 Physical Exam: Physical Exam Vitals and nursing note reviewed. Constitutional: General: She is in acute distress. Appearance: Normal appearance. She is obese. She is ill-appearing. HENT: Head: Normocephalic and atraumatic. Cardiovascular: Rate and Rhythm: Normal rate and regular rhythm. Pulses: Normal pulses. Heart sounds: Normal heart sounds. Pulmonary: Effort: Respiratory distress present. Breath sounds: Rales present. Comments: On 4 L NC Abdominal: General: Abdomen is flat. Bowel sounds are normal. Palpations: Abdomen is soft. Musculoskeletal: General: Swelling present. Normal range of motion. Cervical back: Normal range of motion and neck supple. Right lower leg: Edema present. Skin: General: Skin is warm and dry. Neurological: General: No focal deficit present. Mental Status: She is alert and oriented to person, place, and time. Mental status is at baseline. Psychiatric: Mood and Affect: Mood normal. Behavior: Behavior normal. Thought Content: Thought content normal. Lab Results: CBC: Recent Labs Component Name 05/17/23 2151 05/09/23 0630 05/08/23 0635 WBC 8.1 7.9 8.2 HGB 9.2* 7.6* 7.8* HCT 31.7* 25.9* 26.8* MCV 92.7 90.9 90.5 Coagulation Panel: Recent Labs Component Name 04/26/23 0629 PT 16.3* INR 1.3 PTT 29.8 BMP: Recent Labs Component Name 05/17/23215005/09/237 05/08/23 0635 NA 144 142 142 POTASSIUM 3.9 4.0 3.9 CL 111* 112* 109* CO2 26 23 29 BUN 15 17 16 CREATININE 1.78* 1.83* 1.80* CALCIUM 7.8* 8.5 8.2* Recent Labs Component Name 05/09/237 05/08/23 0635 05/07/23 0616 MAGNESIUM 2.1 2.2 2.1 Recent Labs Component Name 05/09/2335605/08/23 0635 05/07/23 0616 PHOS 4.8 4.7 4.8 Hepatic Panel: Recent Labs Component Name 05/17/23215005/09/2335605/08/2335 04/27/23 0729 04/26/2329 12/02/221954 AST 9 - - - 78* 47* ALT 7 - - - 43 38 ALKPHOS 179* - - - 203* 313* TBILI 0.1* - - - 0.3 1.9* ALB 1.5* 1.6* 1.4* - 1.3* 0.8* - = values in this interval not displayed. ABG: Recent Labs Component Name 05/17/23220512/03/22 1856 PH 7.39 7.28* Amylase/Lipase: Invalid input(s): AMYL, LIPA Thyroid Studies: No results for input(s): TSH, T4 in the last 07611 hours. Cardiac Enzymes: Recent Labs Component Name 04/27/2329 12/02/221954 CKTOTAL 1,624* - TROPONINI - 0.023 Lipid Panel: Recent Labs Component Name 12/02/222032 LDLCALC 74 HDL 8* ASSESSMENT & PLAN Acute on chronic congestive heart failure, unspecified heart failure type (CMS/HCC) (POA: Yes) Swelling of right upper extremity (POA: Yes) #Acute hypoxic respiratory failure #HFpEF -Most likely due to her pulmonary edema -Chest xray with bilateral pulmonary edema and cardiomegally -CTA showed no PE and moderate pleural effusion, small to moderate pericardial effusions, and diffuse body wall edema. -BNP 476 - Last ECHO from EF 60% with mildly enlarged LVW. LV Diastolic parameters normal. -Plan: - Started on IV lasix 40 mg bid - NC oxygen 3-4L - Low salt diet - Getting UPCR to rule out nephrotic syndrome given low alb, CKD and given her younger age and further nephrotic workup depending on her proteinuria #Right arm swelling #Right foot osteomyelitis - Most likely due to pulling of her PICC line - No redness or discharged noted - Vascular Surgery and ID consulted last admission and advised for RKA but patient declined Plan: - Resuming her IV Vancomycin, IV CTX and Flagyl PO and EOT 06/07/23 - RUE Doppler to rule out DVTs - Wound Consult - BC Pending #HTN - Resume home dose coreg 12.5 mg bid po and titrate for higher BP - IV lasix 40 mg BID - Holding home dose amlodipine due to leg edema - Start Lisinopril 10 mg once daily PO #CKD 3B - Baseline cr 1.4-1.8 - most likely due to diabetic nephropathy - Baseline cr 1.8 - Alb 1.5 - UPCR - Avoid Nephrotoxins #T2DM - ACCU Checks - SSI Code: Full Diet: Low salt cardiac Electrolytes: Replete PRN PPx: Subcu Heparin Access: one PICC line, One PIV Dispo: Admit to Medicine. The above assessment and plan will be discussed with the attending. This note is not final until attested by attending physician. Will Burt MD Internal Medicine Resident [facility] 05/18/2023 3:36 AM Associated attestation - Jed Stevenson MD - 05/18/2023 5:36 PM CDT I have personally seen and examined the patient today, 05.18.2023 I have reviewed imaging studies and laboratory tests and have discussed the patient in detail with the resident(s). I concur with their documented assessment and plan except I would clarify the following diagnoses and/or plan elements: Acute Hypoxic Rep Failure Volume overload- multifactorial: -CKD St 3B -HFpEF -Nephrotic Syndrome -Hypoalbuminemia DM2 with neuropathy and nephropathy We will obtain US of Neela BOSWELL Cont Abx Grey Stevenson MD documented in this encounter Consult Notes * Lisandro Mujica - 05/22/2023 9:01 AM CDTAssociated Order(s): IP CONSULT TO INFECTIOUS DISEASES Images from the original note were not included. [facility] Infectious Diseases Consultation Patient Name: Gay Canales 1990 Room: 80/ Date of Admission: 05/17/2023 Date of Service: 05/22/2023 Primary Care Physician: No primary care provider on file. Attending Physician: Sameer Navarro MD Reason for Infectious Disease Consultation Abx recs History of Present Illness HPI: Gay Canales is a 32 year old female with a past medical history significant for T2DM, HTN, HFpEF, left foot gangrene s/p AKA, R foot OM on abx via PICC who presented on 05/17 from a SNF for R arm swelling. Hospital course complicated by volume overload and AHRF. Patient is currently being continued on vancomycin, ceftriaxone and flagyl for OM . PICC line removed on 05/21 after RUE Doppler on 05/19 revealed DVT in R brachial vein at IV site. Notably began to have swelling in R arm on 05/20, different than initial presentation (now in posterior deltoid area, previously in forearm). ID was consulted for antibiotic recommendations. Of note, Patient recently discharged from [facility] for OM of the R foot with vascular surgery and ID consulted (04/26-05/09) . At that time, recommended R BKA but refused and was discharged with PICC line and IV abx ceftriaxone and vancomycin plus flagyl PO with EOT 06/07/2023. On interview, patient report that distal arm swelling (foraerm) noted to have started on 05/17, noticed it when she woke up in themorning. Of note, this occured after arm was cleaned by nurse at SNF (day before) and believes it may have been pulled out. She did not have any pain, erythema, fevers, or chills at that time, just noticed the swelling. Denies any form of trauma to her arm or any wounds/lesions on her skin. Reports that this swelling is now resolved but noticed new swelling in her proximal arm/deltoid region 2 days ago (05/20) that gradually worsened. Of note this began prior to PICC being discontinued on 05/21. This is also without pain, erythema, or sensory changes (ie numbness/tingling). She continues to have full range of motion in her arm and no new fevers or chills. Denies any pain in her R foot. Medical History Past Medical History: Diagnosis Date ??? Essential (primary) hypertension ??? Heart failure (CMS/HCC) ??? Type 2 diabetes mellitus without complications (CMS/HCC) Surgical History Past Surgical History: Procedure Laterality Date ??? LEG AMPUTATION ABOVE KNEE Left 12/05/2022 Left; AMPUTATION ABOVE LEFT KNEE ??? Leg Amputation, Below Knee Left 12/02/2022 Left; LEFT ANKLE DISARTICULATION LEVEL 2 @ 2220 Social History Smoking: former smoker, not current Alcohol: denies current use Illicit drugs/IV drug use: denies Living situation: SNF for past few weeks Travel history: not recently Sick contacts: none HIV status: negative Hepatitis status: negative Prosthetic/Implant history: none Immunizations: Immunization History Administered Date(s) Administered ??? [...] Systems Constitutional: Negative for chills and fever. HENT: Negative for congestion and sore throat. Respiratory: Negative for cough, sputum production and shortness of breath. Cardiovascular: Negative for chest pain and palpitations. Gastrointestinal: Negative for abdominal pain, diarrhea, nausea and vomiting. Genitourinary: Negative for dysuria, frequency, hematuria and urgency. Musculoskeletal: Negative for joint pain and myalgias. Skin: Negative for rash. Neurological: Negative for dizziness, tingling, sensory change and headaches. Allergies No Known Allergies Antimicrobial History Current Antibiotics - Ceftriaxone (05/18 - ) - Flagyl (05/18 - ) - Vancomycin (05/18 - ) Prior Antibiotics At [facility] - N/A Home Medications Prior to Admission medications Medication [...] by mouth once daily 12/12/22 Rosi Menard APRN-LEEROY blood glucose (OneTouch Verio) test strip USE ONE STRIP TO TEST BLOOD SUGAR FOUR TIMES DAILY 12/12/22Amanda Georges MD Blood Glucose Monitoring Suppl (OneTouch Verio Reflect) w/Device KIT Use 1 kit 4 times daily USE METER TO CHECK BLOOD GLUCOSE FOUR TIMES DAILY Reasons: CALL [facility] WHEN DELIVERING [id number] 12/12/22 Amanda Georges MD carvedilol (Coreg) 12.5 MG tablet Take 1 (one) tablet by mouth 2 times daily with morning and evening meal Provider, MD Rebel carvedilol (Coreg) 12.5 MG tablet Take 1 (one) tablet by mouth 2 times daily with morning and evening meal 12/12/22 Rosi Menard V. [employer] cefTRIAXone 2 g 2,000 mg in 0.9% NaCl IV 0.9 % 50 mL 2,000 (two thousand) mg by Intravenous route every 24 hours for 28 days 05/10/23 06/07/23 Joe Vargas MD FeroSul 325 (65 Fe) MG tablet Take 1 (one) tablet by mouth daily with breakfast 08/08/22 Rebel Garcia MD gabapentin (Neurontin) 100 MG capsule Take [...] BLOOD GLUCOSE TESTING 12/12/22 Amanda Georges MD melatonin 3 MG tablet Take 1 (one) tablet by mouth nightly as needed for Insomnia 05/09/23 Joe Vargas MD metroNIDAZOLE (Flagyl) 500 MG tablet Take 1 (one) tablet by mouth every 8 hours for 29 days 05/09/23 06/07/23 Joe Vargas MD nystatin (Mycostatin) 084333 UNIT/GM powder Apply to affected area 3 times daily 12/12/22 Rosi Menard V. [employer] potassium chloride ER (Klor-Con M) 20 MEQ tablet Take 1 (one) tablet by mouth daily with breakfast 12/12/22 Rosi Menard [employer] INTER[employer] vancomycin 750 mg in 0.9% NaCl IV 0.9 % 250 mL 750 (seven hundred fifty) mg by Intravenous route every 24 hours for 28 days 05/10/23 06/07/23 Joe Vargas MD Inpatient Medications ??? 0.9% NaCl 3 mL Intracatheter q8h ??? apixaban 10 mg Oral BID Followed by ??? [START ON 05/26/2023] apixaban 5 mg Oral BID ??? carvedilol 12.5 mg Oral BID WC ??? cefTRIAXone (Rocephin) 2,000 mg in 0.9% NaCl IV 50 mL IVPB 2,000 mg Intravenous q24h ??? ferrous sulfate 325 mg Oral QDAY WITH BREAKFAST ??? gabapentin 100 mg Oral TID ??? insulin aspart 0-6 Units Subcutaneous TID WC ??? lisinopril 10 mg Oral QDAY ??? metroNIDAZOLE 500 mg Oral q8h ??? vancomycin 750 mg Intravenous QDAY ??? vancomycin (VANCOCIN) IV dose per pharmacy Does not apply DIRECTED Objective Vitals BP 160/71 Pulse 80 Temp 97.6 ??F (36.4 ??C) (Axillary) Resp 18 Ht 1.702 m (5' 7 ) Wt (!) 139.3 kg (307 lb) SpO2 90% Temp (24hrs), Av.6 ??F (36.4 ??C), Min:97.3 ??F (36.3 ??C), Max:97.9 ??F (36.6 ??C) Physical Exam Physical Exam Constitutional: Appearance: She is obese. HENT: Head: Normocephalic and atraumatic. Mouth/Throat: Mouth: Mucous membranes are moist. Pharynx: Oropharynx is clear. Eyes: Extraocular Movements: Extraocular movements intact. Conjunctiva/sclera: Conjunctivae normal. Pupils: Pupils are equal, round, and reactive to light. Cardiovascular: Rate and Rhythm: Normal rate and regular rhythm. Pulses: Normal pulses. Heart sounds: Normal heart sounds. Pulmonary: Effort: Pulmonary effort is normal. No respiratory distress. Breath sounds: Normal breath sounds. Abdominal: General: There is no distension. Palpations: Abdomen is soft. There is no mass. Tenderness: There is no abdominal tenderness. Comments: Bandage to RLQ (notes blister/wound from wearing tight pants) Musculoskeletal: General: No swelling or tenderness. Cervical back: Normal range of motion. Comments: Bandage to R foot, clean dry intact; L stump incision well healed; RUE proximal region noticebly larger than left, no erythema, lesions, or purulence, nontender to palpation; denies sensorychanges and full range of motion witnessed Skin: General: Skin is warm and dry. Neurological: General: No focal deficit present. Mental Status: She is alert and oriented to person, place, and time. Mental status is at baseline. Sensory: No sensory deficit. Motor: No weakness. Lines: PIV, EUD Lab Review CBC: Recent Labs Component Name 05/22/23 0521 05/21/23 0450 05/20/23 0542 WBC 6.2 7.0 6.3 RBC 3.27* 3.22* 3.47* HGB 8.9* 8.8* 9.4* HCT 30.9* 30.3* 32.6* MCV 94.5 94.1 93.9 BMP: Recent Labs Component Name 05/22/23 0521 05/21/23 0450 05/20/23 0542 NA 143 143 143 CL 110* 109* 110* CO2 26 27 29 BUN 10 13 12 CREATININE 1.52* 1.62* 1.65* ALB 1.4* 1.4* 1.4* PROT 5.3* 5.2* 5.4* estimated creatinine clearance is 79.2 mL/min (A) (by C-G formula based on SCr of 1.52 mg/dL (H)). LFTs: Recent Labs Component Name 05/22/23 0521 05/21/23 0450 05/20/23 0542 12/02/22 1955 08/25/22 0315 08/24/22 1404 [...] Microbiology, Imaging and other diagnostic tests MICROBIOLOGY: Microbiology Results (Displays last 21 days for this encounter ONLY) Procedure Component Value - Date/Time CULTURE BLOOD [[id number]] (Normal) Collected: 05/21/23 0503 Lab Status: Preliminary result Specimen: Blood Peripheral Updated: 05/22/23 0830 Culture No growth 24 hours CULTURE BLOOD [[id number]] (Normal) Collected: 05/21/23 0450 Lab Status: Preliminary result Specimen: Blood Peripheral Updated: 05/22/23 0830 Culture No growth 24 hours CULTURE BLOOD [[id number]] (Normal) Collected: 05/19/23 1233 Lab Status: Preliminary result Specimen: Blood Peripheral Updated: 05/21/23 1630 Culture No growth CULTURE BLOOD [[id number]] (Normal) Collected: 05/19/23 1231 Lab Status: Preliminary result Specimen: Blood Peripheral Updated: 05/21/23 1630 Culture No growth CULTURE BLOOD [[id number]] (Abnormal) (Susceptibility) Collected: 05/17/232150 Lab Status: Final result Specimen: Blood Peripheral Updated: 05/21/23 0808 Culture Growth of Staphylococcus haemolyticus Comment: Possible contaminant unless multiple cultures are positive for the same isolate. Growth of Staphylococcus epidermidis Gram Stain Gram-positive cocci in clusters Narrative: Positive at 16.5 hours. Susceptibility Staphylococcus epidermidis (2) Antibiotic Interpretation Microscan Method Status Oxacillin Resistant >=4 ug/mL CHARLES Final Vancomycin Susceptible <=0.5 ug/mL CHARLES Final BCID PANEL [[id number]] (Abnormal) Collected: 05/17/232150 Lab Status: Final result Specimen: Blood Peripheral Updated: 05/18/232143 Staphylococcus epidermidis Detected Narrative: Blood Culture ID Panel performed by [employer] multiplex PCR. Test Panel includes: Antimicrobial Resistance Genes: Mec A/C and MREJ (methicillin-resistance gene-MRSA) and van A/B (vancomycin- resistance gene). Gram Positive Bacteria: Enterococcus faecalis, Enterococcus faecium, Staphylococcus (genus), Staphylococcus aureus, Staphylococcus epidermidis, Staphylococcus lugdunensis, Streptococcus (genus), Streptococcus agalactiae (Group B), Streptococcus pneumoniae, Streptococcus pyogenes (Group A). CULTURE BLOOD [[id number]] (Abnormal) Collected: 05/17/232139 Lab Status: Preliminary result Specimen: Blood Peripheral Updated: 05/21/23 0808 Culture Growth of Staphylococcus epidermidis Gram Stain Gram-positive cocci in clusters Narrative: Positive at 29 Hours 45 Minutes. Refer to previously reported susceptibility testing, specimen number:[id number] SARS-COV-2 (COVID-19) RAPID [[id number]] (Normal) Collected: 05/09/23 1305 Lab Status: Final result Specimen: Microbiology from Nasopharyngeal Updated: 05/09/23 1410 COVID-19 PCR Not detected Narrative: The [employer] Xpert Xpress SARS-COV-2 has been authorized by the Food and Drug Administration (FDA) under an Emergency Use Authorization (EUA). This test has been validated in accordance with the FDA'sguidance document Policy for Diagnostic Testing in Laboratories [...] this EUA assay are available upon request. C DIFFICILE GDH AG + TOXIN A+B [[id number]] (Normal) Collected: 05/03/23 0238 Lab Status: Final result Specimen: Stool from Feces Updated: 05/03/23828 C difficile GDH antigen & toxin A/B NEGATIVE Narrative: Negative for toxigenic C. difficile HISTOPATHOLOGY: None at this admission IMAGING & PROCEDURES: TTE 05/11 w/ mild effects of HTN, pericardial and pleural effusions; no evidence of vegetations. CT HUMERUS RIGHT W CONTRAST Result Date: 05/18/2023 IMPRESSION: 1.Diffuse subcutaneous stranding throughout the imaged upper arm and chest wall is likely secondary to volume overload status in the setting of heart failure, less likely cellulitis. 2.Nofocal fluid collections identified to suggest abscess. > Dictated by Robert Woodruff MD (client services vice president). Sorin Kim have personally reviewed and interpreted this examination/study. > Interpreting Provider: Sorin Veronica on 05/18/2023 1:[address] ANGIO CHEST PULM EMBOLISM Result Date: 05/18/2023 Impression: 1.Significantly limited study to evaluate for [...] 4.Cardiomegaly. > Dictated by Robert Woodruff MD (client services vice president). Sorin Kim have personally reviewed and interpreted this examination/study. > Interpreting Provider: Sorin Veronica on 05/18/2023 1:37 PM Assessment and Recommendations 1. Coagulase-negative Staph + Blood Cultures - BC x2 05/17 w/ staph epi growth, BC x1 with staph haemolyticus - Given the presence of 2 coagulase-negative species in blood cultures, less suspicious for true bacteremia/thrombophelbitis and likely contamination as skin nish - Patient also afebrile and without leukocytosis throughout admission inconsistent with bacteremic picture - BCx nd 05/21 NGTD - 05/19 RUE Doppler w/ DVT in brachial vein - 05/18 CT R Arm w/ diffuse subcutaneous stranding throughout arm - Pt initially w/ distal R arm swelling, now resolved s/p PICC line removal, but notably new edema to proximal R arm beginning 05/20 (no erythema, pain, no evidence of cellulitis) 2. Osteomyelitis of R foot - No cultures obtained as pt did not want intervention (recommended BKA), started on empiric abx regimen - Continued on Flagyl PO + Vancomycin and ceftriaxone IV via PICC line (04/26/2023 to EOT 06/07/2023) as outpatient at [facility] - PICC line for outpatient abx treatment removed 05/21 2/2 R arm swelling/DVT Plan/Recommendations - Recommend oral regimen with doxycycline 100 mg PO BID, ciprofloxacin 750 mg PO BID, and flagyl 500 mg q8h for R foot osteomyelitis to complete duration of therapy (EOT 06/07/2023) - Obtain repeat RUE Doppler given new swelling since previous - If patient not improving on oral abx as outpatient, will need to put in new line for IV abx (has follow up with ID clinic on 06/03) Thank you for allowing us to participate in the care of this patient. We will continue to follow and monitor with you closely. Patient seen, examined, and case/plan were discussed with my attending physician, Dr. Gardner. Case was discussed with primary team. Lisandro Mujica MS4 Infectious Diseases [employer] 05/22/2023 9:02 AM Associated attestation - January Ramirez MD - 05/22/2023 5:49 PM CDT Patient was seen by me with a medical student. Agree with plans and findings. She has 2 coagulase negative staph positive on Bcx, no fever or leukocytosis, think it might be contamination. Pls note that if she has fever episode, recurrent bacteremia with same organisms , will need to take it as true bacteremia with further w/u and management. DVT related PICC line-- had line removed. For the treatment of OM, to avoid further lines infection risk and benefit, will convert her to oral treatment regimen below. Close f/u with ID. * Aide Sutton RD/BARI - 05/21/2023 12:58 PM CDTAssociated Order(s): IP CONSULT TO NUTRITIONAL SERV Clinical Nutrition Brief Note Nutrition Recommendations: Continue Diabetic Consistent Carb diet. +Consider lifting Cardiac restrictions to help encourage adequate PO intake +Nathaniel BID (7gm arginine, 7gm glutamine, 2.5g collagen protein, 300mg VIT C, 9.5mg zinc) +Glucerna TID (220 kcals, 10 g Pro, 26 g CHO) - vanilla flavor Comments: RD consulted for protein loss. Nutrition team currently following. PO intake fluctuating; reported intake is 0-100% of meals and 100% of snacks. Pt reporting not hungry; consider startingappetite stimulant (Marinol) if PO intake doesn't improve. RD altered ONS 2/2 to pt's preference, see above. +BM x2 over 24hrs per I/Os. Weight appears stable per wt hx recorded in EMR. No Serum proteins such as albumin and prealbumin are not included as defining characteristics of malnutrition because recent evidence analysis shows that serum levels of these proteins do not change in response to changes in nutrient intake. Albumin is an acute phase respondent, more indicative of inflammation. Recommend to check CRP. See full assessment from 05/19. Will follow up per clinical nutrition guidelines. Estimated Energy Needs: KCAL: 9110-3377 (25-30kcals/kg IBW) Protein (g): 92 (1.5g/kg IBW) Fluid (ml): 1 ml/kcal Needs based on: Kcal/kg- (Comment) (IBW 135lb) Recommended Access Route: PO [email or web address] [id number] * Lexus Lomas RD/LD - 05/19/2023 2:00 PM CDTAssociated Order(s): IP CONSULT TO NUTRITIONAL SERV Images from the original note were not included. Initial Nutrition Assessment Brief Synopsis: Patient is at Nutrition Risk; Specific criteria can be found in assessment below Nutrition Plan: Continue current diet +Ensure High Protein (160 kcals, 16 g protein, 19 g carbohydrate) TID +Nathaniel BID (7gm arginine, 7gm glutamine, 2.5g collagen protein, 300mg VIT C, 9.5mg zinc) Recommendations to Physician: See above Comments: Acknowledging 05/19 consult for non healing wounds. Patient with recent admission. [place] PO intake. Last BM 05/19. F/u per clinical guidelines. Assessment: Med/Surg History and Clinical Diagnoses: 32 Y O F with PMH of T2DM, HTN, CHF, left foot gangrene s/p LKA, diabetic right foot osteomyelitis, who presented from SNF facility with complains of right arm swelling and presented to General Medicine Services for further management. Height: 170.2 cm (5' 7.01 ) Weight: (!) 139.3 kg (307 lb 1.6 oz) BMI: Body mass index is 48.09 kg/m??. BMI Range: Morbidly Obese Class 3 IBW/lb (Calculated) Female: [id number], Recent Weights/Methods 12/11/2022 0407 12/12/2022 0335 12/19/2022 1027 01/09/2023 1004 04/26/2023 0450 05/18/2023 0518 05/19/2023 0400 05/19/2023 1300 Weight: 140.6 kg (310 lb) 140.6 kg (310 lb) 128.4 kg (283 lb) 127 kg (280 lb) 140 kg (308 lb 9.6 oz) 140.1 kg (308 lb 14.4 oz) 139.3 kg (307 lb) 139.3 kg (307 lb 1.6 oz) Weight Method (Utilize Scales): Bedscale Bedscale -- -- Bedscale -- Bedscale -- Wt Comments: Diet order accuracy Current diet order: Consistent Carb Standard;Sodium Restricted Standard;Low Fat Standard Nutrition recommendation: alter/change nutrition order P.O.Intake for the past 48 hrs: % Meal Taken Av.8 % Min: 0 % Max: 75 % Supplement(s) Consumed- Last 48 hours None Food Allergies: No known food allergies GI Concerns: None Chewing/Swallowing: None Pain affecting intake: No Estimated Needs: KCAL: [id number] (25-30kcals/kg IBW) Protein (g): 92 (1.5g/kg IBW) Fluid (ml): 1 ml/kcal Needs based on: Kcal/kg- (Comment) (IBW 135lb) Recommended Access Route: PO Laboratory values: Recent Labs Component Name 05/19/23 0638 05/18/23 0617 05/17/23 2151 BUN 12 16 15 CREATININE 1.68* 1.71* 1.78* NA 141 144 144 POTASSIUM 3.8 3.6 3.9 CL 111* 111* 111* CO2 27 25 26 GLUCOSE 99 103 159* CALCIUM 8.0* 8.0* 7.8* PROT 5.3* 5.7* 5.7* ALB 1.4* 1.5* 1.5* TBILI 0.1* 0.2 0.1* ALKPHOS 160* 175* 179* ALT 5 6 7 AST 10 11 9 ANIONGAP 7* 12 11 BCR 7 9 8 OSMOLALITY 292 299 302* AGRATIO 0.4* 0.4* 0.4* EGFR 42* 41* 39* Medications: Current Facility-Administered Medications Medication ??? 0.9% NaCl injection 3 mL And ??? 0.9% NaCl injection 1-10 mL ??? apixaban (Eliquis) tablet 10 mg Followed by ??? [START ON 05/26/2023] apixaban (Eliquis) tablet 5 mg ??? carvedilol (Coreg) tablet 12.5 mg ??? cefTRIAXone (Rocephin) 2,000 mg in 0.9% NaCl IV 50 mL IVPB ??? dextrose 10 % IV bolus Or ??? dextrose 10 % IV bolus ??? ferrous sulfate tablet 325 mg ??? furosemide (Lasix) injection 40 mg ??? gabapentin (Neurontin) capsule 100 mg ??? glucagon (Glucagen) injection 1 mg ??? glucose (Diabetic Use) (Dex4 Glucose) oral liquid ??? glucose (Diabetic Use) oral gel ??? glucose chew tablet 4 tablet ??? insulin lispro (HumaLOG;ADMelog) 100 UNIT/ML pen 0-6 Units ??? iopamidol (Isovue 370) 76 % contrast ??? lisinopril (Prinivil; Zestril) tablet 10 mg ??? melatonin tablet 3 mg ??? metroNIDAZOLE (Flagyl) tablet 500 mg ??? vancomycin (Vancocin) 750 mg in 0.9% NaCl IV 250 mL IVPB ??? vancomycin (Vancocin) IV dose per pharmacy Skin/Wound: wound to R dorsal foot and lower R abd Nutrition Care Process (1) Nutrition Diagnostic Statement: Increased nutrient needs (protein) related to:: increased demands for wound healing as evidenced by:: estimated protein needs .. Nutrition Diagnostic Statement Progress: New diagnostic statement established Nutrition Intervention: Meals and snacks:;Medical Food Supplements: Monitoring: PO intake, supplement acceptance, labs, meds, BM, weight Evaluation: Nutrition Goal: Total intake will meet estimated nutrient needs Nutrition Goal Timeframe: Throughout stay Nutrition Goal Progress: New goal established ASCOM: [id number] documented in this encounter ED Notes * Ginette Zuleta RN - 05/18/2023 2:50 AM CDT Patient report given to JIMMIE Chino. Answered all questions, no concerns from nurse. Will turnover care at this time. * Ginette Zuleta RN - 05/18/2023 2:20 AM CDT RN rounded on pt. Put pt on bed leahy. Pt urinated all over bed. New sheets and pads were placed under pt. Pt is now clean and dry at this time. Pt refusing purewick. * Alfonso Jasmine MD - 05/17/2023 9:26 PM CDT Emergency Medicine Attending Note Interval History : Chief Complaint Patient presents with ??? Swelling Arm Right arm swelling that started 2days ago. jail changed dressing 2 days ago and, It hasn'tfelt right since . Denies Fever or chills. Pt from [facility]. There for rehab following LL amputation. PICC line in place for IV abx. No chest pain or shortness of breath. Gay Canales is a 32 year old female presenting to the ED c/o SOB and RUE swelling x 1 day. Pmhx of right diabetic foot ulcer with associated osteomyelitis, s/p L AKA, s/p PICC line placement 05/10 for abx. Denies fevers, chills, NVD. Symptoms are better with nothing, worse with nothing. Denies any other complaints at this time. Reports they were in their usual state of health prior to this. Pt hasn't had these symptoms before. Past Medical History: Diagnosis Date ??? Essential (primary) hypertension ??? Heart failure (CMS/HCC) ??? Type 2 diabetes mellitus without complications (CMS/HCC) Past Surgical History: Procedure Laterality Date ??? LEG AMPUTATION ABOVE KNEE Left 12/05/2022 Left; AMPUTATION ABOVE LEFT KNEE ??? Leg Amputation, Below Knee Left 12/02/2022 Left; LEFT ANKLE DISARTICULATION LEVEL 2 @ 2220 Social History Socioeconomic History ??? Marital status: [...] of Health Financial Resource Strain: Low Risk (04/28/2023) Overall Financial Resource Strain (CARDIA) ??? Difficulty of Paying Living Expenses: Not hard at all Food Insecurity: No Food Insecurity (04/28/2023) Hunger Vital Sign ??? Worried About Running Out of Food in the Last Year: Never true ??? Ran Out of Food in the Last Year: Never true Transportation Needs: No Transportation Needs (04/28/2023) PRAPARE - Transportation ??? Lack of Transportation (Medical): No ??? Lack of Transportation (Non-Medical): No Stress: No Stress Concern Present (04/28/2023) [employer] - Occupational Stress Questionnaire ??? Feeling of Stress : Not at all Housing Stability: Low Risk (04/28/2023) Housing Stability Vital Sign ??? Unable to Pay for Housing in the Last Year: No ??? Number of Places Lived in the Last Year: 1 ??? Unstable Housing in the Last Year: No No Known Allergies Review of Systems: (+) positive Review of Systems Constitutional: Negative for chills, diaphoresis and fever. HENT: Negative for congestion and nosebleeds. Eyes: Negative for photophobia and pain. Respiratory: Negative for cough, hemoptysis, sputum production, shortness of breath, wheezing and stridor. Cardiovascular: Negative for chest pain, palpitations, orthopnea and leg swelling. Gastrointestinal: Negative for abdominal pain, constipation, diarrhea, nausea and vomiting. Genitourinary: Negative for dysuria and frequency. Musculoskeletal: Negative for back pain and myalgias. (+) RUE swelling/ pain Skin: Negative for rash. Neurological: Negative for dizziness, sensory change, focal weakness, loss of consciousness, weakness and headaches. Physical Exam Vitals: 05/17/23 2038 05/17/23 2039 05/17/23 2047 05/17/23 2147 BP: 178/99 167/99 Pulse: 96 93 90 Resp: 23 Temp: SpO2: 96% 99% 96% Physical Exam Constitutional: General: She is not in acute distress. Appearance: Normal appearance. She is not ill-appearing, toxic-appearing or diaphoretic. HENT: Head: Normocephalic and atraumatic. Nose: Nose normal. Mouth/Throat: Mouth: Mucous membranes are moist. Pharynx: Oropharynx is clear. Eyes: Pupils: Pupils are equal, round, and reactive to light. Cardiovascular: Rate and Rhythm: Normal rate and regular rhythm. Pulses: Normal pulses. Pulmonary: Effort: Pulmonary effort is normal. Breath sounds: Normal breath sounds. Abdominal: General: Abdomen is flat. There is no distension. Palpations: Abdomen is soft. Tenderness: There is no abdominal tenderness. There is no guarding. Musculoskeletal: General: Swelling present. No tenderness. Normal range of motion. Cervical back: Normal range of motion and neck supple. Skin: General: Skin is warm and dry. Neurological: General: No focal deficit present. Mental Status: She is alert and oriented to person, place, and time. Mental status is at baseline. Psychiatric: Mood and Affect: Mood normal. Behavior: Behavior normal. Medical Decision Making: Problem List: 1. Hypoxia and RUE swelling - Ddx: cellulitis vs lymphedema vs DVT vs PE vs ACS vs pnuemonia vs other - PLAN: Supplemental O2, labs, EKG, CXR, CT imaging, reassess, dispo pending. see below for further orders/plan. Orders Placed This Encounter ??? CULTURE BLOOD ??? CT HUMERUS RIGHT W CONTRAST ??? CT ANGIO CHEST PULM EMBOLISM ??? XR CHEST 1VW PORTABLE ??? CBC W AUTO DIFFERENTIAL ??? COMPREHENSIVE METABOLIC PANEL ??? TROPONIN-I HIGH SENSITIVE BASELINE + 1HR ??? LACTIC ACID BLOOD ??? B-TYPE NATRIURETIC PEPTIDE ??? BLOOD GASES SUZANNE + COOX PANEL ??? RBC MORPHOLOGY ??? TROPONIN-I HIGH SENSITIVE REFLEX 1HOUR ??? HCG BETA BLOOD QUANTITATIVE ??? EKG 12-LEAD ??? iopamidol (Isovue 370) 76 % contrast ??? furosemide (Lasix) injection 40 mg ??? AND Linked Order Group ??? 0.9% NaCl injection 3 mL ??? 0.9% NaCl injection 1-10 mL ??? enoxaparin (Lovenox) injection 40 mg Data Review: (All Labs/Imaging/ECG, other diagnostics independently interpreted by me.) - MONITORING: The patient's Appliance Counselor Rhythm was interpreted by me. The residential monitor showed NSR. This is interpreted as normal. The patient's Oxygen Saturation Monitor was interpreted by me. The reading was 96%. The patient wason 3L NC at the time of the reading. This is interpreted as Abnormal. - ECG: Interpreted by me: Date: 05/17/2023 Time: 2206 R&R: NSR with a ventricular rate of 90 bpm - LABS: Labs Reviewed CBC W AUTO DIFFERENTIAL - Abnormal; Notable for the following components: Result Value RBC 3.42 (*) Hemoglobin 9.2 (*) Hematocrit 31.7 (*) MCHC 29.0 (*) RDW-SD 74.1 (*) RDW-CV 22.6 (*) nRBC Absolute 0.04 (*) nRBC Auto 0.5 (*) Eosinophils % 10.0 (*) Eosinophils Absolute 0.81 (*) All other components within normal limits COMPREHENSIVE METABOLIC PANEL - Abnormal; Notable for the following components: Creatinine 1.78 (*) Chloride 111 (*) Glucose 159 (*) Calcium 7.8 (*) Protein Total 5.7 (*) Albumin 1.5 (*) Bilirubin Total 0.1 (*) Alkaline Phosphatase 179 (*) Osmolality Calculated 302 (*) Albumin/Globulin Ratio 0.4 (*) eGFR by CKD-EPI 39 (*) All other components within normal limits B-TYPE NATRIURETIC PEPTIDE - Abnormal; Notable for the following components: BNP 476 (*) All other components within normal limits BLOOD GASES SUZANNE + COOX PANEL - Abnormal; Notable for the following components: pO2 Venous 54 (*) Base Excess Venous 2.4 (*) Carboxyhemoglobin 2.9 (*) Hemoglobin by COOX 9.1 (*) All other components within normal limits Narrative: Carboxyhemoglobin Normal Concentration: Non-smokers: 0-2%; Smokers: 0-9%; Toxic: >20% RBC MORPHOLOGY - Abnormal; Notable for the following components: Anisocytosis 1+ (*) Microcytes Occasional (*) Macrocytosis Occasional (*) Polychromasia Occasional (*) Target Cells Occasional (*) Carli Cells 1+ (*) All other components within normal limits TROPONIN-I HIGH SENSITIVE BASELINE + 1HR - Normal LACTIC ACID BLOOD - Normal CULTURE BLOOD CULTURE BLOOD TROPONIN-I HIGH SENSITIVE REFLEX 1HOUR HCG BETA BLOOD QUANTITATIVE - IMAGING: CT HUMERUS RIGHT W CONTRAST (Results Pending) CT ANGIO CHEST PULM EMBOLISM (Results Pending) XR CHEST 1VW PORTABLE (Results Pending) No results found. - MEDS: Medications iopamidol (Isovue 370) 76 % contrast (125 mL Intravenous $ Given - Contrast 05/18/23 0047) furosemide (Lasix) injection 40 mg (has no administration in time range) 0.9% NaCl injection 3 mL (has no administration in time range) And 0.9% NaCl injection 1-10 mL (has no administration in time range) enoxaparin (Lovenox) injection 40 mg (has no administration in time range) MDM: History is obtained from patient and is located in my HPI section. I also externally reviewed previous records that I had access to within [facility] and noted relevant statements in my HPI. Code status patient/POA:Full code Relevant PE findings: RUE swelling Labs reviewed: Labs reviewed. BNP elevated at 476. Trop is not elevated. CBC/ CMP wnl of pt's baseline. Imaging reviewed: CXR shows There are interstitial and patchy airspace opacities throughout the bilateral lungs which may reflects sequelae of pulmonary vascular congestion/mild pulmonary edema. However, superimposed developing multifocal airspace disease such as pneumonia cannot be entirely excluded. There is likely atelectatic component to these opacities as well. There are pleural effusions bilaterally, trace small volume on the left and trace volume of the right. There are no pneumothoracesidentified. The cardiac silhouette appears mildly enlarged on this portable radiograph, which can be artifactual. The mediastinal silhouette is normal. CT PE neg for PE ED COURSE Contrast Use in Patients with BOBBY Disclaimer This patient clinically requires a contrast-enhanced CT for diagnosis and treatment of their condition, despite their concurrent BOBBY, and this is a medical emergency. Had risk benefits discussion with pt and family at bedside. Consent for contrasted CT verbally obtained from pt and her mother. Contrast Associated BOBBY (CA-BOBBY) is defined as any BOBBY occuring within 48 hours of adminstration ofcontrast. Contrast induced BOBBY (CI-BOBBY) is a subset of CA-BOBBY. Per the [employer] (ACR) and the National Kidney Foundation (NKF) Consensus Statement in 2020, the evidence base for CI-BOBBY is sparse (MS Sharona et al. Radiology, 2019). Studies that have attempted to correlate risk of CI-BOBBY have shown no evidence or have found evidence only in patients with severely reduced kidney function. Regardless, these studies are underpowered to establish risk in patients with severe kidney disease. The risk of administering modern intravenous iodinated contrast media in patients with reduced kidney function has been overstated. Therefore the ACR and NKF recommend that Necessary contrast material-enhanced CT without a suitable alter [place] should not be avoided solely on the basis of CI-BOBBY risk. References: Sharona MS, et al. Use of Intravenous Iodinated Contrast Media in Patients with Kidney Disease: Consensus Statements from the [employer] and the National Kidney Foundation. Radiology. 2019;294(3):660-668. https://doi.org/10.1148/radiol.0034918094. On reevaluation: On reassessment, pt is in no acute distress and vital signs are stable. Pt is resting comfortably. No new complaints at this time. 1:21 AM- CXR shows There are interstitial and patchy airspace opacities throughout the bilateral lungs which may reflects sequelae of pulmonary vascular congestion/mild pulmonary edema. However, superimposed developing multifocal airspace disease such as pneumonia cannot be entirely excluded. Thereis likely atelectatic component to these opacities as well. There are pleural effusions bilaterally, trace small volume on the left and trace volume of the right. There are no pneumothoraces identified. The cardiac silhouette appears mildly enlarged on this portable radiograph, which can be artifactual. The mediastinal silhouette is normal. 1:38 AM- CT PE read as: Significantly limited study to evaluate for pulmonary embolism secondary to bolus timing. No large main pulmonary artery or segmental pulmonary embolus identified. No right heart strain. Right upper terminate approach PICC tip terminates near the location of the right atrioventricular junction. Recommend retraction. Sequela of fluid overloaded state including pulmonary edema, moderate size bilateral pleural effusions, small to moderate-sized pericardial effusion, and diffuse body wall edema. Cardiomegaly. 2:37AM - After discussion with medicine, the patient will be admitted to their service for further management of acute on chronic CHF and arm swelling. Admitting provider is Dr. Bonilla. - I have reviewed the diagnostic findings with the patient and they have had an opportunity to ask me any questions they have about care, diagnosis, and reason for admission. The patient states understanding and agrees to admission. Labs/images reviewed at bedside with patient: yes Conclusion and Disposition: Admitted to Medicine Acute problems: Hypoxia, RUE swelling Exacerbations of chronic problems: none Systemic issues: none Consultations in the ED: none Medication changes: per admitting team Follow up: per admitting team Orders and Medicine administered during this encounter: Orders Placed This Encounter ??? CULTURE BLOOD ??? CT HUMERUS RIGHT W CONTRAST ??? CT ANGIO CHEST PULM EMBOLISM ??? XR CHEST 1VW PORTABLE ??? CBC W AUTO DIFFERENTIAL ??? COMPREHENSIVE METABOLIC PANEL ??? TROPONIN-I HIGH SENSITIVE BASELINE + 1HR ??? LACTIC ACID BLOOD ??? B-TYPE NATRIURETIC PEPTIDE ??? BLOOD GASES SUZANNE + COOX PANEL ??? RBC MORPHOLOGY ??? TROPONIN-I HIGH SENSITIVE REFLEX 1HOUR ??? HCG BETA BLOOD QUANTITATIVE ??? EKG 12-LEAD ??? iopamidol (Isovue 370) 76 % contrast ??? furosemide (Lasix) injection 40 mg ??? AND Linked Order Group ??? 0.9% NaCl injection 3 mL ??? 0.9% NaCl injection 1-10 mL ??? enoxaparin (Lovenox) injection 40 mg Medications iopamidol (Isovue 370) 76 % contrast (125 mL Intravenous $ Given - Contrast 05/18/23 0047) furosemide (Lasix) injection 40 mg (has no administration in time range) 0.9% NaCl injection 3 mL (has no administration in time range) And 0.9% NaCl injection 1-10 mL (has no administration in time range) enoxaparin (Lovenox) injection 40 mg (has no administration in time range) Clinical Impression: 1. Acute on chronic congestive heart failure, unspecified heart failure type (CMS/HCC) 2. Hypoxia 3. Arm swelling Disposition: Admit to Medicine By signing my name below, I, Rajni Hough, attest that this documentation has been prepared under the direction and in the presence of Dr. Jasmine. Signed: Coretta Kessler. Date: 05/18/2023. I, Dr. Jasmine, personally performed the services described in this documentation. All medical record entries made by the scribe were at my direction and in my presence. I have reviewed the chart and agree that the record reflects my personal performance and is accurate and complete. * MegamichaelKatharineMelendez - 05/17/2023 8:48 PM CDT Images from the original note were not included. Gay Canales [id number] [facility] EMERGENCY DEPARTMENT History Chief Complaint Patient presents with ??? Swelling Arm Right arm swelling that started 2days ago. jail changed dressing 2 days ago and, It hasn'tfelt right since . Denies Fever or chills. Pt from [facility]. There for rehab following LL amputation. PICC line in place for IV abx. No chest pain or shortness of breath. HPI Mrs. Canales is A 32yo F with PMH of osteomyelitis needing below knee L leg amputation and presenting to ED because of R arm swelling at PICC line site. Patient noticed swelling started 05/16 although line inserted around 05/10. Complaints of some pain, itchiness, and mild numbness. R hand was more swollen per patient, but has decreased since a wristband was removed. PICC line inserted because of vanc, ceftriaxone. In the ED, patient develops hypoxia with SOB And O2 in 86% and requires 2L NC now satting 98%. Past Medical History: Diagnosis Date ??? Essential (primary) hypertension ??? Heart failure (CMS/HCC) ??? Type 2 diabetes mellitus without complications (CMS/HCC) Past Surgical History: Procedure Laterality Date ??? [...] Paternal Grandmother ??? Hypertension Paternal Grandmother Social History Socioeconomic History ??? Marital status: [...] of Health Financial Resource Strain: Low Risk (04/28/2023) Overall Financial Resource Strain (CARDIA) ??? Difficulty of Paying Living Expenses: Not hard at all Food Insecurity: No Food Insecurity (04/28/2023) Hunger Vital Sign ??? Worried About Running Out of Food in the Last Year: Never true ??? Ran Out of Food in the Last Year: Never true Transportation Needs: No Transportation Needs (04/28/2023) PRAPARE - Transportation ??? Lack of Transportation (Medical): No ??? Lack of Transportation (Non-Medical): No Stress: No Stress Concern Present (04/28/2023) [employer] - Occupational Stress Questionnaire ??? Feeling of Stress : Not at all Housing Stability: Low Risk (04/28/2023) Housing Stability Vital Sign ??? Unable to Pay for Housing in the Last Year: No ??? Number of Places Lived in the Last Year: 1 ??? Unstable Housing in the Last Year: No Review of Systems Review of Systems Constitutional: Negative for chills, fever and malaise/fatigue. Gastrointestinal: Negative for diarrhea, nausea and vomiting. Genitourinary: Negative for dysuria, frequency and urgency. Skin: Positive for itching. Only on R arm Physical Exam BP 162/76 Pulse 96 Temp 98.6 ??F (37 ??C) Resp 22 LMP 08/08/2022 SpO2 96% Physical Exam Constitutional: Appearance: She is obese. Cardiovascular: Rate and Rhythm: Normal rate and regular rhythm. Pulmonary: Effort: Pulmonary effort is normal. Breath sounds: Normal breath sounds. Skin: General: Skin is warm. Capillary Refill: Capillary refill takes less than 2 seconds. Comments: Swollen arm and forearm on R side Neurological: Mental Status: She is alert. Medications Current Outpatient Medications Medication Sig Dispense Refill ??? acetaminophen (Tylenol) [...] (one) tablet by mouth once daily ??? blood glucose ([employer]Touch Verio) test strip USE ONE STRIP TO [...] daily with morning and evening meal ??? cefTRIAXone 2 g 2,000 mg in 0.9% NaCl IV 0.9 % 50 mL 2,000 (two thousand) mg by Intravenous route every 24 hours for 28 days ??? FeroSul 325 (65 Fe) MG tablet Take 1 (one) tablet by mouth daily with breakfast ??? insulin lispro (HumaLOG;ADMelog) 100 UNIT/ML pen Inject 0 (zero) Units to 6 (six) Units subcutaneously 3 times daily with meals ??? Lancets ([employer]CH DELICA PLUS 33G EXTRA FINE LANCET) USE ONE LANCET TO PRICK FINGER FOUR TIMES DAILY FOR BLOOD GLUCOSE TESTING 100 Each PRN ??? melatonin 3 MG tablet Take 1 (one) tablet by mouth nightly as needed for Insomnia ??? metroNIDAZOLE (Flagyl) 500 MG tablet Take 1 (one) tablet by mouth every 8 hours for 29 days ??? nystatin (Mycostatin) 436190 UNIT/GM powder Apply to affected area 3 times daily ??? potassium chloride ER (Klor-Con M) 20 MEQ tablet Take 1 (one) tablet by mouth daily with breakfast ??? vancomycin 750 mg in 0.9% NaCl IV 0.9 % 250 mL 750 (seven hundred fifty) mg by Intravenous route every 24 hours for 28 days Procedures Procedures Lab/SPO2 Interpretation No results found for this visit on 05/17/23. No orders to display Progress Notes ED Course Clinical Impressions as of 05/17/232133 Hypoxia Arm swelling Medical Decision Making Amount and/or Complexity of Data Reviewed Labs: ordered. Radiology: ordered. ECG/medicine tests: ordered. Mrs. Canales is a 32yo F with PMH of osteomyelitis needing below knee L leg amputation and presenting to ED because of R arm swelling at PICC line site. For R arm swelling, concern for cellulitis vs lymphedema vs compartment syndrome vs DVT. Will orderCT humerus W, CBC, CMP, lactate, blood culture. For SOB, concern for DVT PE vs pneumonia vs atelectasis. Will order CT PE, BAG, xray, BNP, troponinI, EKG. 9:49 PM Labs and imaging ordered. Patient laying comfortably in bed and does not complaint of SOB athis time. No orders of the defined types were placed in this encounter. Associated attestation - Alfonso Jasmine MD - 05/18/2023 2:34 AM CDT Emergency Medicine Attending Note Medical Student Attestation Note I have personally seen, examined and been fully involved in the management of this patient with themedical student. This note is for educational purposes only and should not be used for patient care. * Imelda Woody, [employer] - 05/17/2023 8:16 PM CDT Medical Screening Exam 05/17/2023 8:16 PM Provider contact with the patient Gay Canales CC: No chief complaint on file. Chief complaint narrative was entered by triage nurse, not by provider Provider in Triage HPI: Gay Canales is a 32 year old female PMH as noted below who presents withright arm swelling x 24 hours. Pt is in [facility] for IV antibiotics-right leg infection and getting tx through picc line right upper arm. Mild pain at insertion site. No fever, chills. CP or SOB Limited Chart History: Past Medical History: Diagnosis Date ??? Essential (primary) hypertension ??? Heart failure (CMS/HCC) ??? Type 2 diabetes mellitus without complications (CMS/HCC) Past Surgical History: Procedure Laterality Date ??? LEG AMPUTATION ABOVE KNEE Left 12/05/2022 Left; AMPUTATION ABOVE LEFT KNEE ??? Leg Amputation, Below Knee Left 12/02/2022 Left; LEFT ANKLE DISARTICULATION LEVEL 2 @ 2220 No current facility-administered medications for this encounter. Current Outpatient Medications Medication Sig Dispense Refill ??? acetaminophen (Tylenol) [...] (one) tablet by mouth once daily ??? blood glucose ([employer]Touch Verio) test strip USE ONE STRIP TO TEST BLOOD SUGAR FOUR TIMES DAILY 100 strip PRN ??? Blood Glucose Monitoring Suppl ([employer]Touch Verio Reflect) w/Device KIT Use 1 kit 4 times daily USE METER TO CHECK BLOOD GLUCOSE FOUR TIMES DAILY Reasons: CALL [facility] WHEN DELIVERING X4364 1 kit 0 ??? carvedilol (Coreg) 12.5 MG tablet Take 1 (one) tablet by mouth 2 times daily with morning and evening meal ??? cefTRIAXone 2 g 2,000 mg in 0.9% NaCl IV 0.9 % 50 mL 2,000 (two thousand) mg by Intravenous route every 24 hours for 28 days ??? FeroSul 325 (65 Fe) MG tablet Take 1 (one) tablet by mouth daily with breakfast ??? insulin lispro (HumaLOG;ADMelog) 100 UNIT/ML pen Inject 0 (zero) Units to 6 (six) Units subcutaneously 3 times daily with meals ??? Lancets (ONETOUCH DELICA PLUS 33G EXTRA FINE LANCET) USE ONE LANCET TO PRICK FINGER FOUR TIMES DAILY FOR BLOOD GLUCOSE TESTING 100 Each PRN ??? melatonin 3 MG tablet Take 1 (one) tablet by mouth nightly as needed for Insomnia ??? metroNIDAZOLE (Flagyl) 500 MG tablet Take 1 (one) tablet by mouth every 8 hours for 29 days ??? nystatin (Mycostatin) 290739 UNIT/GM powder Apply to affected area 3 times daily ??? potassium chloride ER (Klor-Con M) 20 MEQ tablet Take 1 (one) tablet by mouth daily with breakfast ??? vancomycin 750 mg in 0.9% NaCl IV 0.9 % 250 mL 750 (seven hundred fifty) mg by Intravenous route every 24 hours for 28 days No Known Allergies PCP: No primary care provider on file. (Above may be pending completion) Review of Systems: Primary System Noted in HPI. Constitutional: No fevers or chills Psychiatric: No mood changes All other systems reviewed and are negative. Vital Signs reviewed in Triage There were no vitals taken for this visit. Pertinent Physical Findings: Constitutional: vitals as above, WDWN, nontoxic Head: Head normocephalic, atraumatic Eyes: conjunctiva clear, nonicteric Neck: neck supple, Resp: respirations even and unlabored, CV: radial pulses 2+, normal warmth to upper arms. Skin: warm, dry,color normal for ethnicity, PICC line RUarm with mild crusting at insertion but no erythema or drainage. Generalized edema to right upper and lower arms. MSK: in recliner Neuro: A&O x 3, Psych: Normal affect [...] encounter. MEDICATIONS FOR CURRENT ENCOUNTER: SCHEDULED MEDICATIONS: ?? No current facility-administered medications for this encounter. CONTINUOUS MEDICATIONS: ?? No current facility-administered medications for this encounter. PRN MEDICATIONS: ?? No current facility-administered medications for this encounter. Clinical Impression: 1.right arm swelling. PICC Based on the Medical Screening Exam performed and diagnostic tests at this time, further evaluationis indicated and will be performed. Patient will be transferred to a main ED room when one is available and care will be transferred to ER provider. CARLOS Lopez documented in this encounter Miscellaneous Notes * Coding Query - Sameer Navarro MD - 05/23/2023 8:01 AM CDT DOCUMENTATION CLARIFICATION REQUEST Use the F2 function manley to complete the query. Click on ???Sign?? to file the note. TO: Dr. Navarro FROM: ??BREANNE Webster, RN, CCDS ? Email: [email or web address] Patient Name: Gay Canales Please review the clinical information below and clarify the present on admission (POA)* status of PICC line related DVT in the right brachial vein as documented on 05/22/2023, infectious disease progress note. *Present on Admission (POA) definition: Present at the time the order for inpatient admission occurs - conditions that develop during an outpatient encounter, including emergency department, observation or outpatient surgery, are considered present on admission. ??? PICC line related DVT in the right brachial vein was present on admission ??? PICC line related DVT in the right brachial vein was not present on admission ??? PICC line related DVT in the right brachial vein - cannot clinically determine if it was present on admission The medical record reflects the following: o Risk Factors: PICC o Clinical Findings: 05/22 ID: DVT related PICC line-- had line removed. 05/19 RUE Doppler w/ DVT in brachial vein - Pt initially w/ distal R arm swelling, now resolved s/p PICC line removal, but notably new edema to proximal R arm beginning 05/20 (no erythema, pain, no evidence of cellulitis) o Treatment: Eliquis and imaging PROVIDER RESPONSE (Use F2 to respond) ??? PICC line related DVT in the right brachial vein was present on admission Please provide your clinical opinion and findings to support the diagnosis in the progress notes & carry it through into your discharge summary. THIS DOCUMENT IS MAINTAINED A PERMANENT PART OF THE MEDICAL RECORD. * Coding Query - Sameer Navarro MD - 05/22/2023 3:00 PM CDT DOCUMENTATION CLARIFICATION REQUEST Use the F2 function manley to complete the query. Click ???Sign?? to file the note. TO: Dr. Navarro FROM: BREANNE Webster, RN, CCDS Email: [email or web address] Please clarify and document your clinical opinion regarding bacteremia ??? Bacteremia, likely contamination ??? Bacteremia likely due to PICC line, present on admission ??? Other specific explanation of clinical findings ??? 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: Bacteremia 2/2 Staph haemolyticus - Most likely due to pulling of her PICC line - 05/17 BCx: Staph haemolyticus - Bacteremia source likely from picc line 05/22 ID medical student: BC x2 05/17 w/ staph epi growth, BC x1 with staph haemolyticus - Given the presence of 2 coagulase-negative species in blood cultures, less suspicious for true bacteremia/thrombophelbitis and likely contamination as skin nish - Patient also afebrile and without leukocytosis throughout admission inconsistent with bacteremic picture o Treatment: PICC line removal and IV ceftriaxone PROVIDER RESPONSE (Use F2 to respond) ??? Bacteremia likely due to PICC line, present on admission Please provide your clinical opinion and findings to support the diagnosis in the progress notes & carry it through into your discharge summary. THIS DOCUMENT IS MAINTAINED A PERMANENT PART OF THE MEDICAL RECORD. documented in this encounter Plan of Treatment Upcoming Encounters Date Type Department Care Team (Late st Contact Info) Description 11/22/2024 1:30 PM [employer] FINISHER Office Visit [facility] - Infectious Disease [address] [place] [address], [place] [address] Kash Ha MD [address] [place] [id number] documented as of this encounter Procedures Procedure Name Priority Date/Time Associated Diagnosis Comments GLUCOSE - POINT OF CARE Routine 05/23/2023 5:39 PM CDT GLUCOSE - POINT OF CARE Routine 05/23/2023 10:58 AM CDT GLUCOSE - POINT OF CARE Routine 05/23/2023 1:30 AM CDT GLUCOSE - POINT OF CARE Routine 05/22/2023 9:07 PM CDT GLUCOSE - POINT OF CARE Routine 05/22/2023 3:44 PM CDT VAS RIGHT VENOUS DUPLEX UE Routine 05/22/2023 3:03 PM CDT Thrombophlebitis Swelling of right upper extremity GLUCOSE - POINT OF CARE Routine 05/22/2023 11:52 AM CDT GLUCOSE - POINT OF CARE Routine 05/22/2023 7:45 AM CDT CBC W AUTO DIFFERENTIAL AM Draw 05/22/2023 5:21 AM CDT COMPREHENSIVE METABOLIC PANEL AM Draw 05/22/2023 5:21 AM CDT PHOSPHORUS BLOOD AM Draw 05/22/2023 5:21 AM CDT MAGNESIUM BLOOD AM Draw 05/22/2023 5:21 AM CDT C-REACTIVE PROTEIN AM Draw 05/22/2023 5: 20 AM CDT GLUCOSE - POINT OF CARE Routine 05/21/2023 3:22 PM CDT GLUCOSE - POINT OF CARE Routine 05/21/2023 12:58 PM CDT ECHO COMPLETE Routine 05/21/2023 11:57 AM CDT Bacteremia due to Gram-positive bacteria GLUCOSE - POINT OF CARE Routine 05/21/2023 8:40 AM CDT CULTURE BLOOD Timed 05/21/2023 5:03 AM CDT CULTURE BLOOD Timed 05/21/2023 4:50 AM CDT CBC W AUTO DIFFERENTIAL AM Draw 05/21/2023 4:50 AM CDT COMPREHENSIVE METABOLIC PANEL AM Draw 05/21/2023 4:50 AM CDT PHOSPHORUS BLOOD AM Draw 05/21/2023 4:50 AM CDT MAGNESIUM BLOOD AM Draw 05/21/2023 4:50 AM CDT VANCOMYCIN LEVEL TROUGH Timed 05/21/2023 4:50 AM CDT GLUCOSE - POINT OF CARE Routine 05/21/2023 2:28 AM CDT GLUCOSE - POINT OF CARE Routine 05/20/2023 11:42 PM CDT GLUCOSE - POINT OF CARE Routine 05/20/2023 8:16 PM CDT GLUCOSE - POINT OF CARE Routine 05/20/2023 6:25 PM CDT GLUCOSE - POINT OF CARE Routine 05/20/2023 11:57 AM CDT VANCOMYCIN LEVEL PEAK Timed 05/20/2023 9:18 AM CDT GLUCOSE - POINT OF CARE Routine 05/20/2023 7:41 AM CDT CBC W AUTO DIFFERENTIAL AM Draw 05/20/2023 5:42 AM CDT COMPREHENSIVE METABOLIC PANEL AM Draw 05/20/2023 5:42 AM CDT PHOSPHORUS BLOOD AM Draw 05/20/2023 5:42 AM CDT MAGNESIUM BLOOD AM Draw 05/20/2023 5:42 AM CDT GLUCOSE - POINT OF CARE Routine 05/20/2023 4:40 AM CDT GLUCOSE - POINT OF CARE Routine 05/19/2023 11:49 PM CDT GLUCOSE - POINT OF CARE Routine 05/19/2023 4:46 PM CDT CARDIAC EKG ORDER 05/19/2023 2:3 2 PM CDT CULTURE BLOOD STAT 05/19/2023 12:33 PM CDT CULTURE BLOOD STAT 05/19/2023 12:31 PM CDT GLUCOSE - POINT OF CARE Routine 05/19/2023 12:29 PM CDT GLUCOSE - POINT OF CARE Routine 05/19/2023 10:34 AM CDT VAS RIGHT VENOUS DUPLEX UE STAT 05/19/2023 8:41 AM CDT Arm swelling RBC MORPHOLOGY AM Draw 05/19/2023 6:38 AM CDT CBC W AUTO DIFFERENTIAL AM Draw 05/19/2023 6:38 AM CDT COMPREHENSIVE METABOLIC PANEL AM Draw 05/19/2023 6:38 AM CDT PHOSPHORUS BLOOD AM Draw 05/19/2023 6:38 AM CDT MAGNESIUM BLOOD AM Draw 05/19/2023 6:38 AM CDT GLUCOSE - POINT OF CARE Routine 05/19/2023 1:36 AM CDT GLUCOSE - POINT OF CARE Routine 05/18/2023 9:00 PM CDT GLUCOSE - POINT OF CARE Routine 05/18/2023 4:50 PM CDT PROTEIN CREATININE RATIO URINE RANDOM PNL Routine 05/18/2023 2:53 PM CDT GLUCOSE - POINT OF CARE Routine 05/18/2023 1:56 PM CDT GLUCOSE - POINT OF CARE Routine 05/18/2023 7:56 AM CDT RBC MORPHOLOGY STAT 05/18/2023 6:17 AM CDT CBC W AUTO DIFFERENTIAL STAT 05/18/2023 6:17 AM CDT COMPREHENSIVE METABOLIC PANEL STAT 05/18/2023 6:17 AM CDT PHOSPHORUS BLOOD STAT 05/18/2023 6:17 AM CDT MAGNESIUM BLOOD STAT 05/18/2023 6:17 AM CDT VANCOMYCIN LEVEL RANDOM STAT 05/18/2023 6:[address] HUMERUS RIGHT W CONTRAST STAT 05/18/2023 1:14 AM CDT Arm swelling CT ANGIO CHEST PULM EMBOLISM STAT 05/18/2023 1:14 AM CDT Hypoxia TROPONIN-I HIGH SENSITIVE REFLEX 1HOUR Timed 05/17/2023 11:40 PM CDT EKG 12-LEAD STAT 05/17/2023 10:06 PM CDT Hypoxia BLOOD GASES SUZANNE + COOX PANEL STAT 05/17/2023 10:06 PM CDT XR CHEST 1VW PORTABLE STAT 05/17/2023 9:59 PM CDT Hypoxia BCID PANEL Routine 05/17/2023 9:51 PM CDT TROPONIN-I HIGH SENSITIVE BASELINE + 1HR STAT 05/17/2023 9:51 PM CDT CULTURE BLOOD Timed 05/17/2023 9:51 PM CDT RBC MORPHOLOGY STAT 05/17/2023 9:51 PM CDT CBC W AUTO DIFFERENTIAL STAT 05/17/2023 9:51 PM CDT B-TYPE NATRIURETIC PEPTIDE STAT 05/17/2023 9:51 PM CDT COMPREHENSIVE METABOLIC PANEL STAT 05/17/2023 9:51 PM CDT HCG BETA BLOOD QUANTITATIVE STAT 05/17/2023 9:51 PM CDT LACTIC ACID BLOOD STAT 05/17/2023 9:5 1 PM CDT CULTURE BLOOD Timed 05/17/2023 9:40 PM CDT documented in this encounter Results * GLUCOSE - POINT OF CARE (05/23/2023 5:39 PM CDT) Glucose WB/POC 96 70 - 115 mg/dL 05/23/2023 5:43 PM CDT [facility] Specimen Type Cap Fingerstick 2022 5:43 PM CDT [facility] Blood BLOOD SPECIMEN / Unknown 05/23/2023 5:39 PM CDT 05/23/2023 5:43 PM CDT Sameer Navarro MD LAB - POINT OF CARE ORDERABLES Performing Organization Address City/State/[facility] Co de Phone Number [address] [address], [facility] [phone] * GLUCOSE - POINT OF CARE (05/23/2023 10:58 AM CDT) Glucose WB/POC 87 70 - 115 mg/dL 05/23/2023 11:03 AM CDT [facility] Specimen Type Cap Fingerstick 2022 11:03 AM CDT [facility] Blood BLOOD SPECIMEN / Unknown 05/23/2023 10:58 AM CDT 05/23/2023 11:03 AM CDT Sameer Navarro MD LAB - POINT OF CARE ORDERABLES [address] [address], [place] [phone] * GLUCOSE - POINT OF CARE (05/23/2023 1:30 AM CDT) Glucose WB/POC 103 70 - 115 mg/dL 05/23/2023 1:31 AM CDT [facility] Specimen Type Arterial 05/23/2023 1:31 AM CDT [facility] Blood BLOOD SPECIMEN / Unknown 05/23/2023 1:30 AM CDT 05/23/2023 1:31 AM CDT Sameer Navarro MD LAB - POINT OF CARE ORDERABLES Performing Organization Address City/[facility]/ZIP Co de Phone Number [address] [address], [place] [phone] * GLUCOSE - POINT OF CARE (05/22/2023 9:07 PM CDT) Glucose WB/POC 108 70 - 115 mg/dL 05/22/2023 10:40 PM CDT [facility] Specimen Type Cap Fingerstick 2022 10:40 PM CDT [facility] Blood BLOOD SPECIMEN / Unknown 05/22/2023 9:07 PM CDT 05/22/2023 10:40 PM CDT Sameer Navarro MD LAB - POINT OF CARE ORDERABLES [address] [address], [place] [phone] * GLUCOSE - POINT OF CARE (05/22/2023 3:44 PM CDT) Glucose WB/POC 107 70 - 115 mg/dL 05/22/2023 3:49 PM CDT [facility] Specimen Type Cap Fingerstick 2022 3:49 PM CDT [facility] Blood BLOOD SPECIMEN / Unknown 05/22/2023 3:44 PM CDT 05/22/2023 3:49 PM CDT Sameer Navarro MD LAB - POINT OF CARE ORDERABLES Performing Organization Address [facility]/ZIP Co de Phone Number [facility] [address] [place] [address], [place] [phone] * VAS RIGHT VENOUS DUPLEX UE (05/22/2023 3:03 PM CDT) Anatomical Region Laterality Modality Upper Extremity Intravascular Ul trasound 05/22/2023 2:19 PM CDT Narrative Procedure Note Graeme Rodgers MD - 05/23/2023 Sameer Navarro MD VASCULAR LAB ORDERAB LES * GLUCOSE - POINT OF CARE (05/22/2023 11:52 AM CDT) Glucose WB/POC 99 70 - 115 mg/dL 05/22/2023 11:56 AM CDT [facility] Specimen Type Cap Fingerstick 2022 11:56 AM CDT [facility] Blood BLOOD SPECIMEN / Unknown 05/22/2023 11:52 AM CDT 05/22/2023 11:55 AM CDT Sameer Navarro MD LAB - POINT OF CARE ORDERABLES Performing Organization Address City/[facility]/ZIP Co de Phone Number [facility] [address] [place] [address], [place] [phone] * (ABNORMAL) GLUCOSE - POINT OF CARE (05/22/2023 7:45 AM CDT) Glucose WB/POC 120(H) 70 - 115 mg/dL 05/22/2023 7:50 AM CDT [facility] Specimen Type Cap Fingerstick 2022 7:50 AM [facility] Blood BLOOD SPECIMEN / Unknown 05/22/2023 7:45 AM CDT 05/22/2023 7:50 AM CDT Sameer Navarro MD LAB - POINT OF CARE ORDERABLES [facility] [address] [place] [address], [facility] [phone] * (ABNORMAL) CBC W AUTO DIFFERENTIAL (05/22/2023 5:21 AM CDT) WBC 6.2 3.5 - 10.5 10? 3 /uL 05/22/2023 6:33 AM [facility] RBC 3.27(L) 3.80 - 5.20 10? 6 /uL 05/22/2023 6:33 AM [facility] Hemoglobin 8.9(L) 12.0 - 15.6 g/dL 05/22/2023 6:33 AM [facility] Hematocrit 30.9(L) 35.0 - 45.0 % 05/22/2023 6:33 AM [facility] MCV 94.5 80.7 - 98.3 fL 05/22/2023 6:33 AM [facility] MCH 27.2 26.7 - 34.0 pg 05/22/2023 6:33 AM [facility] MCHC 28.8(L) 30.8 - 35.9 g/dL 05/22/2023 6:33 AM [facility] RDW-SD 75.0(H) 36.0 - 50.0 fL 05/22/2023 6:33 AM [facility] RDW-CV 21.6(H) 11.2 - 14.8 % 05/22/2023 6:33 AM [facility] Platelet Count 330 150 - 400 10? 3 /uL 05/22/2023 6:33 AM [facility] MPV 9.4 9.4 - 12.9 fL 05/22/2023 6:33 AM [facility] nRBC Absolute 0.00 0 10? 3 /uL 05/22/2023 6:33 AM [facility] nRBC Auto 0.0 0 /100 WBC 05/22/2023 6:33 AM [facility] Neutrophils % 49.5 35.0 - 70.0 % 05/22/2023 6:33 AM [facility] Lymphocytes % 25.6 20.0 - 43.0 % 05/22/2023 6:33 AM [facility] Monocytes % 12.1 5.0 - 13.0 % 05/22/2023 6:33 AM [facility] Eosinophils % 12.0(H) 0.0 - 6.0 % 05/22/2023 6:33 AM [facility] Basophil % 0.3 0.0 - 2.0 % 05/22/2023 6:33 AM [facility] Neutrophils Absolute 3.06 1.60 - 7.00 10? 3 /uL 05/22/2023 6:33 AM [facility] Lymphocyte Absolute 1.58 1.10 - 3.90 10? 3 /uL 05/22/2023 6:33 AM [facility] Monocytes Absolute 0.75 0.26 - 1.07 10? 3 /uL 05/22/2023 6:33 AM [facility] Eosinophils Absolute 0.74(H) 0.00 - 0.47 10? 3 /uL 05/22/2023 6:33 AM [facility] Basophils Absolute 0.02 0.00 - 0.08 10? 3 /uL 05/22/2023 6:33 AM [facility] Immature Granulocytes % 0.5 0.0 - 1.0 % 05/22/2023 6:33 AM [facility] Immature Granulocytes Absolute 0.03 05/22/2023 6:33 AM [facility] Blood BLOOD SPECIMEN / Unknown Lab Venipuncture / Unknown 05/22/2023 5:21 AM CDT 05/22/2023 6:04 AM T Alfonso Jasmine MD LAB - HEMATOLOGY OR DERABLES Performing Organization Address City/State/[facility] Co de Phone Number [facility] [address] [place] [address] [phone] * (ABNORMAL) COMPREHENSIVE METABOLIC PANEL (05/22/2023 5:21 AM [facility]) BUN 10 7 - 26 mg/dL 05/22/2023 6:37 AM [facility] Creatinine 1.52(H) 0.56 - 0.96 mg/dL 05/22/2023 6:37 AM [facility] Sodium 143 136 - 145 mmol/L 05/22/2023 6:37 AM [facility] Potassium 3.5 3.5 - 4.5 mmol/L 05/22/2023 6:37 AM [facility] Chloride 110(H) 98 - 107 mmol/L 05/22/2023 6:37 AM [facility] CO2 26 22 - 29 mmol/L 05/22/2023 6:37 AM [facility] Glucose 99 70 - 115 mg/dL 05/22/2023 6:37 AM [facility] Calcium 8.0(L) 8.4 - 10.2 mg/dL 05/22/2023 6:37 AM [facility] Protein Total 5.3(L) 6.0 - 8.3 g/dL 05/22/2023 6:37 AM [facility] Albumin 1.4(L) 3.4 - 5.0 g/dL 05/22/2023 6:37 AM [facility] Bilirubin Total 0.1(L) 0.2 - 1.2 mg/dL 05/22/2023 6:37 AM [facility] Alkaline Phosphatase 143 40 - 150 U/L 05/22/2023 6:37 AM [facility] ALT 5 5 - 55 U/L 05/22/2023 6:37 AM [facility] AST 9 5 - 34 U/L 05/22/2023 6:37 AM [facility] Anion Gap 11 8 - 18 05/22/2023 6:37 AM [facility] BUN/Creatinine Ratio 7 7 - 23 05/22/2023 6:37 AM [facility] Osmolality Calculated 295 270 - 300 mOsm/kg 05/22/2023 6:37 AM CDT [facility] Albumin/Globulin Ratio 0.4(L) 1.1 - 2.3 05/22/2023 6:37 AM CDT [facility] eGFR by CKD-EPI 47(L) >=90 mL/min/1.7 3 m2 05/22/2023 6:37 AM CDT [facility] Blood BLOOD SPECIMEN / Unknown Lab Venipuncture / Unknown 05/22/2023 5:21 AM CDT 05/22/2023 6:04 AM CDT Alfonso Jasmine MD LAB - CHEMISTRY ORD ERABLES [address] [address], [facility] [phone] * MAGNESIUM BLOOD (05/22/2023 5:21 AM CDT) Magnesium 1.8 1.6 - 2.6 mg/dL 05/22/2023 6:37 AM CDT [facility] Blood BLOOD SPECIMEN / Unknown Lab Venipuncture / Unknown 05/22/2023 5:21 AM CDT 05/22/2023 6:04 AM CDT Alfonso Jasmine MD LAB - CHEMISTRY ORD ERABLES [address] [address], [place] [phone] * PHOSPHORUS BLOOD (05/22/2023 5:21 AM CDT) Phosphorus 4.2 2.9 - 5.1 mg/dL 05/22/2023 6:37 AM CDT [facility] Blood BLOOD SPECIMEN / Unknown Lab Venipuncture / Unknown 05/22/2023 5:21 AM CDT 05/22/2023 6:04 AM CDT Alfonso Jasmine MD LAB - CHEMISTRY ORD ERABLES [address] [place] [address], [place] [phone] * C-REACTIVE PROTEIN (05/22/2023 5:20 AM CDT) C-Reactive Protein <0.5 <=0.5 mg/dL 05/22/2023 6:25 AM CDT [facility] Blood BLOOD SPECIMEN / Unknown Lab Venipuncture / Unknown 05/22/2023 5:20 AM CDT 05/22/2023 5:57 AM CDT Sameer Navarro MD LAB - CHEMISTRY ORDE RABLIZA [address] [address], [place] [phone] * GLUCOSE - POINT OF CARE (05/21/2023 3:22 PM CDT) Glucose WB/POC 113 70 - 115 mg/dL 05/21/2023 3:26 PM CDT [facility] Specimen Type Cap Fingerstick 2022 3:26 PM CDT [facility] Blood BLOOD SPECIMEN / Unknown 05/21/2023 3:22 PM CDT 05/21/2023 3:26 PM CDT Sameer Navarro MD LAB - POINT OF CARE ORDERABLES [address] [address], [place] [phone] * GLUCOSE - POINT OF CARE (05/21/2023 12:58 PM CDT) Glucose WB/POC 100 70 - 115 mg/dL 05/21/2023 12:59 PM CDT [facility] Specimen Type Cap Fingerstick 2022 12:59 PM CDT [facility] Blood BLOOD SPECIMEN / Unknown 05/21/2023 12:58 PM CDT 05/21/2023 12:59 PM CDT Sameer Navarro MD LAB - POINT OF CARE ORDERABLES [place] [address] [place] [address], [facility] [phone] * ECHO COMPLETE (05/21/2023 11:57 AM CDT) BSA [id number] m2 [facility] CV FUJI PACS LV biplane EF 74 54 - 74 % [facility] CV FUJI PACS LV A2C EF 68 52 - 76 % [facility] CV FUJ I PACS LV A4C EF 76 46 - 78 % [facility] CV FUJ I PACS LVOT stroke vol 99.74 cm3 [facility] CV FUJI PACS LV stroke vol 2D teich 83.359 ml [facility]SM CV FUJI PACS LV stroke vol index A4C MOD 96.827 ml SSM CV FUJI PACS LVIDd 5.06 3.8 - 5.2 cm SSM CV FUJI PACS LVIDs 3.12 2.2 - 3.5 cm SSM CV FUJI PACS IVSd 2D 1.266 0.6 - 0.9 cm SSM CV FUJI PACS LVPWd 1.34 cm SSM CV FUJ I PACS Fractional Shortening 2D 39 28 - 44 % SSM CV FUJI PACS LV ESV BP 36.664 14 - 42 mL SSM CV FUJI PACS LV ESV index BP 13.9 8 - 24 mL/m2 SSM CV FUJI PACS LV ESV A2C 30.609 10 - 54 mL SSM CV FUJI PACS LV EDV BP 138.916 mL SSM CV FUJ I PACS LV ESV A4C 42.56 12 - 60 mL SSM CV FUJI PACS LV EDV index BP 52.5 29 - 61 mL/m2 SSM CV FUJI PACS LV EDV A2C 135.1 41 - 133 mL SSM CV FUJI PACS LV EDV A4C 127.437 mL SSM CV FU JI PACS LV ESV 2D 38.381 14 - 42 mL SSM CV FUJI PACS LV EDV 2D 121.74 46 - 106 mL SSM CV FUJI PACS LVOT diam 2.0 cm SSM CV FUJ I PACS LVOT area 3.22 cm2 SSM CV FUJ I PACS LV RWT 0.528 SSM CV FUJ I PACS LV Garcia A2C 7.925 cm SSM CV F UJI PACS LV Garcia A4C 8.806 cm SSM CV F UJI PACS IVS/LVPW 0.947 SSM CV FUJ I PACS MV E pk mariajose 125.98 cm/s SSM CV F UJI PACS MV avg E/e' ratio 24.219 SS M CV FUJI PACS MV A pk mariajose 90.636 cm/s SSM CV F UJI PACS MV E A ratio 1.39 SSM CV FUJI PACS MV E' lateral mariajose 5.925 cm/s SS M CV FUJI PACS MV DT 150 ms SSM CV FUJ I PACS MV E' septal mariajose 4.636 cm/s SSM CV FUJI PACS MV A duration 116 ms SSM CV FUJI PACS MV E/e' septal 27.176 SSM C V FUJI PACS MV E/e' lateral 21.262 SSM CV FUJI PACS TR pk mariajose 237.8 cm/s SSM CV FUJ I PACS P vein A mariajose 23.1 cm/s SSM CV FUJI PACS P vein A duration 137 ms SS M CV FUJI PACS LVOT pk mariajose 1.26 m/s SSM CV F UJI PACS LVOT mn mariajose 0.83 m/s SSM CV F UJI PACS LVOT mn grad 3.0 mmHg SSM CV FUJI PACS LVOT Cardiac Output 6.523 l/min SSM CV FUJI PACS LA ESV A2C MOD Index 27 ml/m2 SSM CV FUJI PACS LA ESV A4C MOD Index 26 ml/m2 SSM CV FUJI PACS LA size 4.895 2.7 - 3.8 cm SSM CV FUJI PACS LA vol BP A-L 77.552 mL SSM CV FUJI PACS RV-garcia basal diam 4.8 2.5 - 4.1 cm SSM CV FUJI PACS RV-garcia longitudinal diam 7.6 5.9 - 8.3 cm SSM CV FUJI PACS RVIDd 3.3 cm SSM CV FUJ I PACS RVOT VTI 22.016 cm SSM CV FUJ I PACS TV S' mariajose 13.298 SSM CV FUJ I PACS RVOT pk mariajose 0.94 m/s SSM CV F UJI PACS RA area 16.31 cm2 SSM CV FUJ I PACS AV mn grad 4 mmHg SSM CV FU JI PACS AV pk grad 8 mmHg SSM CV FU JI PACS AV mn mariajose 0.94 m/s SSM CV FUJ I PACS AV pk mariajose 1.39 m/s SSM CV FUJ I PACS AV VTI 32.812 cm SSM CV FUJ I PACS LVOT pk grad 4.835 mmHg SSM CV FUJI PACS LVOT VTI 30.938 cm SSM CV FUJ I PACS AV area planimetry 2.96 cm2 SSM CV FUJI PACS AV area index 1.2 cm2/m2 SSM CV FUJI PACS AV area cont VTI 3.0 cm2 SSM CV FUJI PACS AV area pk mariajose 2.9 cm2 SSM C V FUJI PACS AV Doppler mariajose index pk mariajose 0.902 SSM CV FUJI PACS Dimensionless Index 0.943 SSM CV FUJI PACS MV mn grad 3 mmHg SSM CV FU JI PACS MV pk grad 6 mmHg SSM CV FU JI PACS MV mn mariajose 0.79 m/s SSM CV FUJ I PACS MV pk mariajose 124.118 cm/s SSM CV FUJ I PACS MV area cont eq 3.96 cm2 SSM CV FUJI PACS MV VTI 25.171 cm SSM CV FUJ I PACS MV decel slope 532.777 cm/s2 SSM C V FUJI PACS TR pk grad 23 mmHg SSM CV FU JI PACS RVOT mn grad 2 mmHg SSM CV FUJI PACS RVOT pk grad 4 mmHg SSM CV FUJI PACS OK pk mariajose 193.698 cm/s SSM CV FUJ I PACS PV mn grad 2 mmHg SSM CV FU JI PACS PV pk mariajose 113.053 cm/s SSM CV FUJ I PACS PV pk grad 5 mmHg SSM CV FU JI PACS PV VTI 26.353 cm SSM CV FUJ I PACS PV mn mariajose 66.604 cm/s SSM CV FUJ I PACS IVC size 2.6 cm SSM CV FUJ I PACS Max Age Predicted HR 190 SSM CV FUJI PACS Target HR 162 SSM CV FUJ I PACS [id number] 6.204 cm SSM CV FUJ I PACS [id number] 5.452 cm SSM CV FUJ I PACS LV stroke vol BP 102.251 mL SSM CV FUJI PACS LVIDs index 1.18 1.3 - 2.1 cm/m2 SSM CV FUJI PACS LV LVIDd index 1.92 2.3 - 3.1 cm/m2 SSM CV FUJI PACS Posterior dimension 0.6 cm SSM CV FUJI PACS EF 2D Bullet 68.709 % SSM CV FUJI PACS MV lat S' mariajose 7.977 cm/s SSM CV FUJI PACS IVSs 1.75 cm SSM CV FUJ I PACS LV EDV A/L A4C 132.714 mL SSM C V FUJI PACS LV Area Garcai A2C 35.782 cm2 SSM CV FUJI PACS LV Area Garcia A4C 37.08 cm2 SSM CV FUJI PACS LV IVRT 70 ms SSM CV FUJ I PACS LA vol BP 75.899 mL SSM CV FUJ I PACS P vein S/D ratio 0.87 SSM CV FUJI PACS MV septal a' mariajose 6.146 cm/s SSM CV FUJI PACS MV lat a' mariajose 8.5 cm/s SSM CV FUJI PACS Qp:Qs 1.01 SSM CV FUJ I PACS LA vol index 29.0 16 - 34 mL/m2 SSM CV FUJI PACS RV-garcia mid diam 3.5 1.9 - 3.5 cm SSM CV FUJI PACS RV NEELAM 10.128 3 - 11 cm2 SSM CV FUJI PACS RV TAMMY 20.6 cm2 SSM CV FUJ I PACS RV wall thickness 0.6 cm SS M CV FUJI PACS RVOT diam Doppler 2.413 cm SS M CV FUJI PACS RVOT area Doppler 4.57 cm2 SS M CV FUJI PACS RVOT stroke vol 100.64 cm3 SSM CV FUJI PACS RVOT envelope time 390 ms SSM CV FUJI PACS PV envelope time 396 ms SSM CV FUJI PACS RA vol index 17 mL/m2 SSM CV FUJI PACS MV area planimetry 3.71 cm2 SSM CV FUJI PACS MV VTI AT ANNULUS PEAK VELOCITY 95.693 cm/s SSM CV FUJI PACS MV VTI AT ANNULUS PEAK GRADIENT 3.663 mmHg SSM CV FUJI PACS MV VTI AT ANNULUS MEAN VELOCITY 54.2 cm/s SSM CV FUJI PACS MV VTI AT ANNULUS MEAN GRADIENT 1.438 mmHg SSM CV FUJI PACS MV VTI AT ANNULUS EJECTION TIME 0.337 s SSM CV FUJI PACS MV regurgitant SV 1 102.00 cm3 SSM CV FUJI PACS TV annulus 2.68 cm SSM CV FU JI PACS TV Rvol 305.88 cc SSM CV FUJ I PACS TV RF 1 % SSM CV FUJ I PACS TR VTI 72.1 cm SSM CV FUJ I PACS TV mn mariajose 78.037 m/s SSM CV FUJ I PACS TV pk mariajose 1.1031 cm/s SSM CV FUJ I PACS TV mn grad 3 mmHg SSM CV FU JI PACS TV pk grad 5 mmHg SSM CV FU JI PACS TV area PHT 3.97 cm2 SSM CV F UJI PACS TV area continuity 3.85 cm2 SSM CV FUJI PACS TV VTI 26.157 cm SSM CV FUJ I PACS TV PHT 55 ms SSM CV FUJ I PACS TV DT 0.191 ms SSM CV FUJ I PACS TV SV 406.51 cm3 SSM CV FUJ I PACS PV area cont eq 3.8 cm2 SSM CV FUJI PACS OK pk grad 15 mmHg SSM CV FU JI PACS Aortic arch 2.925 cm SSM CV F UJI PACS Sinus of Valsalva 2.77 cm SS M CV FUJI PACS ST junction 2.513 cm SSM CV F UJI PACS IVC size sniff 2.105 cm SSM C V FUJI PACS MV Rvol PISA 2.3 mL SSM CV FUJI PACS AV Rvol cont eq -2.26 mL SSM CV FUJI PACS MV annulus diameter 2.9 cm SSM CV FUJI PACS Aortic annulus 2.363 cm SSM C V FUJI PACS LA AREA (2C) 21.674 SSM CV FUJI PACS LA AREA (4C) 22.887 SSM CV FUJI PACS RV FAC 51.00 35 % SSM CV FUJ I PACS Est RA pressure 15.0 mmHg SSM CV FUJI PACS MV RVol cont eq 2.0 mL SSM CV FUJI PACS MV RF cont eq 2.0 % SSM CV FUJI PACS sPAP 38.0 mmHg SSM CV FUJ I PACS RVSP 38.0 mmHg SSM CV FUJ I PACS RAP 15.0 mmHg SSM CV FUJ I PACS TR mn grad 15 mmHg SSM CV FU JI PACS TV area 5.0 cm2 SSM CV FUJ I PACS Anterior dimension 0.5 cm SSM CV FUJI PACS Lateral dimension 0.5 cm SS M CV FUJI PACS Anatomical Region Laterality Modality Ultrasound Narrative 05/21/2023 7:46 PM CDT ?Left??Ventricle: Left ventricle size is normal. EDV Index BP is 52.5 mL/m2. ESV Index BP is 13.9 mL/m2. Mildly increased wall thickness. LVPWd is 1.34 cm. Mildly increased ventricular mass. Findings consistent with mild concentric hypertrophy. Normal systolic function with a visually estimated EF of 70 - 75%. EF by 2D Power biplane is 74%. Normal wall motion. Grade II diastolic dysfunction with elevated left atrial pressure. Elevated mean left atrial pressure. Tissue Doppler velocity is reduced. MV peak E velocity is 125.98 cm/s. MV e' lateral velocity is 5.925 cm/s. MV e' septal velocity is 4.636 cm/s. Average E/e' ratio 24.2. ?Pericardium: Small circumferential pericardial effusion present. Pericardial effusion is echolucent. No indication of cardiac tamponade. Evidence includes normal LV size, no septal bounce, no respiratory chamber variation. ?Right ventricle size is normal. Normal wall motion. Normal systolic function. Fractional area change (FAC) is 51.00%. ?Left pleural effusion. ?Trace regurgitation. sPAP is 38.0 mmHg. RVSP is 38.0 mmHg. RAP is 15.0 mmHg. Mean PA pressure of 30 mmHg. PVR < 2 Wood units. No stenosis. TV mean gradient is 3 mmHg. TV area is 5.0 cm2. ?Trace regurgitation. No stenosis. MV mean gradient is 3 mmHg. MV area by planimetry is 3.71 cm2 Mild effects of HTN. ??Pericardial and pleural effusions. ?? Left Ventricle Left ventricle size is normal. EDV Index BP is 52.5 mL/m2. ESV Index BP is 13.9 mL/m2. Mildly increased wall thickness. LVPWd is 1.34 cm. Mildly increased ventricular mass. Findings consistent with mild concentric hypertrophy. Normal systolic function with a visually estimated EF of 70 - 75%. EF by 2D Power biplane is 74%. Normal wall motion. Grade II diastolic dysfunction with elevated left atrial pressure. Elevated mean left atrial pressure. Tissue Doppler velocity is reduced. MV peak E velocity is 125.98 cm/s. MV e' lateral velocity is 5.925 cm/s. MV e' septal velocity is 4.636 cm/s. Average E/e' ratio 24.2. Right Ventricle Right ventricle size is normal. Normal wall motion. Normal systolic function. Fractional area change (FAC) is 51.00%. Left Atrium Left atrium size is upper limits of normal. Left atrium volume index is 29.0 mL/m2. The interatrial septum appears normal with no evidence of a shunt by color flow Doppler. No mass present. Right Atrium Right atrium size is normal. RA volume index is 17 mL/m2. No mass present. IVC/SVC IVC diameter is greater than 21 mm and decreases less than 50% during inspiration; therefore the estimated right atrial pressure is elevated (~15 mmHg). SVC was not assessed. Mitral Valve Valve structure is normal. No restricted motion. Trace regurgitation. No stenosis. MV mean gradient is 3 mmHg. MV area by planimetry is 3.71 cm2. Tricuspid Valve Valve structure is normal. No restricted motion. Trace regurgitation. sPAP is 38.0 mmHg. RVSP is 38.0 mmHg. RAP is 15.0 mmHg. Mean PA pressure of 30 mmHg. PVR < 2 Wood units. No stenosis. TV mean gradient is 3 mmHg. TV area is 5.0 cm2. Aortic Valve Valve structure is trileaflet. No restricted motion. No regurgitation. No stenosis. AV mean gradient is 4 mmHg. AV peak gradient is 8 mmHg. AV peak velocity is 1.39 m/s. AV area by continuity VTI is 3.0 cm2. AV area by peak velocity is 2.9 cm2. Pulmonic Valve Valve structure is normal. No restricted motion. No regurgitation. No stenosis. PV mean gradient is 2 mmHg. PV area by continuity equation is 3.8 cm2. Ascending Aorta Normal sized sinus of Valsalva (aortic root) and ascending aorta. Pericardium There is mild pericardial thickening. Small circumferential pericardial effusion present. Pericardial effusion is echolucent. No indication of cardiac tamponade. Evidence includes normal LV size, no septal bounce, no respiratory chamber variation. Left pleural effusion. Study Details Study quality was excellent. A complete 2D, color Doppler, spectral Doppler and M-mode echocardiogram was performed. The apical, parasternal, subcostal and suprasternal views were obtained. Prior Study Prior TTE study available for comparison. Prior study date: 08/24/2022. Changes noted compared to prior study. Changes include: Effusions new.. Wall Scoring Baseline Score Index: 1.00 The left ventricular wall motion is normal. Procedure Note Robert Melgoza MD - 05/21/2023 ? ? Left??Ventricle: Left ventricle size is normal. EDV Index BP is 52.5mL/m2. ESV Index BP is 13.9 mL/m2. Mildly increased wall thickness. LVPWdis 1.34 cm. Mildly increased ventricular mass. Findings consistent withmild concentric hypertrophy. Normal systolic function with a visuallyestimated EF of 70 - 75%. EF by 2D Power biplane is 74%. Normal wallmotion. Grade II diastolic dysfunction with elevated left atrial pressure.Elevated mean left atrial pressure. Tissue Doppler velocity is reduced. MVpeak E velocity is 125.98 cm/s. MV e' lateral velocity is 5.925 cm/s. MVe' septal velocity is 4.636 cm/s. Average E/e' ratio 24.2. ? ? Pericardium: Small circumferential pericardial effusion present.Pericardial effusion is echolucent. No indication of cardiac tamponade.Evidence includes normal LV size, no septal bounce, no respiratory chambervariation. ? ? Right ventricle size is normal. Normal wall motion. Normal systolicfunction. Fractional area change (FAC) is 51.00%. ? ? Left pleural effusion. ? ? Trace regurgitation. sPAP is 38.0 mmHg. RVSP is 38.0 mmHg. RAP is 15.0mmHg. Mean PA pressure of 30 mmHg. PVR < 2 Wood units. No stenosis. TVmean gradient is 3 mmHg. TV area is 5.0 cm2. ? ? Trace regurgitation. No stenosis. MV mean gradient is 3 mmHg. MV areaby planimetry is 3.71 cm2 Mild effects of HTN. Pericardial and pleural effusions. Sameer Navarro MD ECHO CUPID * GLUCOSE - POINT OF CARE (05/21/2023 8:40 AM CDT) [facility] Glucose WB/POC 105 70 - 115 mg/dL 05/21/2023 8:41 AM CDT [facility] Specimen Type Cap Fingerstick 2022 8:41 AM CDT [facility] Blood BLOOD SPECIMEN / Unknown 05/21/2023 8:40 AM CDT 05/21/2023 8:41 AM CDT Sameer Navarro MD LAB - POINT OF CARE ORDERABLES Performing Organization Address City/[facility]/ZIP Co de Phone Number [facility] [address] [place] [address], [place] [phone] * CULTURE BLOOD (05/21/2023 5:03 AM CDT) [facility] Culture No growth day 5 CHARLES 05/26/2023 8:[address] [facility] Blood PERIPHERAL BLOOD / Unknown Lab Venipuncture / Unknown 05/21/2023 5:03 AM CDT 05/21/2023 5:06 AM CDT Sameer Navarro MD LAB - MICROBIOLOGY O RDERABLES [facility]CRO[facility] [address] [place] [address], [facility] [phone] * (ABNORMAL) CBC W AUTO DIFFERENTIAL (05/21/2023 4:50 AM CDT) [facility] WBC 7.0 3.5 - 10.5 10? 3 /uL 05/21/2023 5:31 AM CDT [facility] RBC 3.22(L) 3.80 - 5.20 10? 6 /uL 05/21/2023 5:31 AM [facility] Hemoglobin 8.8(L) 12.0 - 15.6 g/dL 05/21/2023 5:31 AM [facility] Hematocrit 30.3(L) 35.0 - 45.0 % 05/21/2023 5:31 AM [facility] MCV 94.1 80.7 - 98.3 fL 05/21/2023 5:31 AM [facility] MCH 27.3 26.7 - 34.0 pg 05/21/2023 5:31 AM [facility] MCHC 29.0(L) 30.8 - 35.9 g/dL 05/21/2023 5:31 AM [facility] RDW-SD 74.9(H) 36.0 - 50.0 fL 05/21/2023 5:31 AM [facility] RDW-CV 21.4(H) 11.2 - 14.8 % 05/21/2023 5:31 AM [facility] Platelet Count 332 150 - 400 10? 3 /uL 05/21/2023 5:31 AM [facility] MPV 9.6 9.4 - 12.9 fL 05/21/2023 5:31 AM [facility] nRBC Absolute 0.02(H) 0 10? 3 /uL 05/21/2023 5:31 AM [facility] nRBC Auto 0.3(H) 0 /100 WBC 05/21/2023 5:31 AM [facility] Neutrophils % 56.7 35.0 - 70.0 % 05/21/2023 5:31 AM [facility] Lymphocytes % 20.5 20.0 - 43.0 % 05/21/2023 5:31 AM [facility] Monocytes % 10.8 5.0 - 13.0 % 05/21/2023 5:31 AM [facility] Eosinophils % 11.4(H) 0.0 - 6.0 % 05/21/2023 5:31 AM [facility] Basophil % 0.3 0.0 - 2.0 % 05/21/2023 5:31 AM CDT [facility] Neutrophils Absolute 3.99 1.60 - 7.00 10? 3 /uL 05/21/2023 5:31 AM CDT [facility] Lymphocyte Absolute 1.44 1.10 - 3.90 10? 3 /uL 05/21/2023 5:31 AM T [facility] Monocytes Absolute 0.76 0.26 - 1.07 10? 3 /uL 05/21/2023 5:31 AM T [facility] Eosinophils Absolute 0.80(H) 0.00 - 0.47 10? 3 /uL 05/21/2023 5:31 AM T [facility] Basophils Absolute 0.02 0.00 - 0.08 10? 3 /uL 05/21/2023 5:31 AM [facility] Immature Granulocytes % 0.3 0.0 - 1.0 % 05/21/2023 5:31 AM [facility] Immature Granulocytes Absolute 0.02 05/21/2023 5:31 AM [facility] Blood BLOOD SPECIMEN / Unknown Lab Venipuncture / Unknown 05/21/2023 4:50 AM CDT 05/21/2023 5:18 AM CDT Alfonso Jasmine MD LAB - HEMATOLOGY OR DERABLES Performing Organization Address [facility]/State/[facility] Co de Phone Number [facility] [address] [place] [address], [facility] [phone] * (ABNORMAL) COMPREHENSIVE METABOLIC PANEL (05/21/2023 4:50 AM CDT) BUN 13 7 - 26 mg/dL 05/21/2023 5:35 AM [facility] Creatinine 1.62(H) 0.56 - 0.96 mg/dL 05/21/2023 5:35 AM [facility] Sodium 143 136 - 145 mmol/L 05/21/2023 5:35 AM [facility] Potassium 3.6 3.5 - 4.5 mmol/L 05/21/2023 5:35 AM [facility] Chloride 109(H) 98 - 107 mmol/L 05/21/2023 5:35 AM [facility] CO2 27 22 - 29 mmol/L 05/21/2023 5:35 AM [facility] Glucose 99 70 - 115 mg/dL 05/21/2023 5:35 AM [facility] Calcium 7.9(L) 8.4 - 10.2 mg/dL 05/21/2023 5:35 AM [facility] Protein Total 5.2(L) 6.0 - 8.3 g/dL 05/21/2023 5:35 AM [facility] Albumin 1.4(L) 3.4 - 5.0 g/dL 05/21/2023 5:35 AM [facility] Bilirubin Total 0.2 0.2 - 1.2 mg/dL 05/21/2023 5:35 AM [facility] Alkaline Phosphatase 140 40 - 150 U/L 05/21/2023 5:35 AM [facility] ALT 6 5 - 55 U/L 05/21/2023 5:35 AM [facility] AST 7 5 - 34 U/L 05/21/2023 5:35 AM [facility] Anion Gap 11 8 - 18 05/21/2023 5:35 AM [facility] BUN/Creatinine Ratio 8 7 - 23 05/21/2023 5:35 AM [facility] Osmolality Calculated 296 270 - 300 mOsm/kg 05/21/2023 5:35 AM [facility] Albumin/Globulin Ratio 0.4(L) 1.1 - 2.3 05/21/2023 5:35 AM [facility] eGFR by CKD-EPI 44(L) >=90 mL/min/1.7 3 m2 05/21/2023 5:35 AM [facility] Blood BLOOD SPECIMEN / Unknown Lab Venipuncture / Unknown 05/21/2023 4:50 AM T 05/21/2023 5:18 AM [facility] Alfonso Jasmine MD LAB - CHEMISTRY ORD ERABLES [facility] [address] [place] [address], [place] [phone] * MAGNESIUM BLOOD (05/21/2023 4:50 AM CDT) Magnesium 1.7 1.6 - 2.6 mg/dL 05/21/2023 5:35 AM CDT [facility] Blood BLOOD SPECIMEN / Unknown Lab Venipuncture / Unknown 05/21/2023 4:50 AM CDT 05/21/2023 5:18 AM CDT Alfonso Jasmine MD LAB - CHEMISTRY ORD ERABLES Performing Organization Address City/[facility]/ZIP Co de Phone Number [address] [address], [facility] [phone] * PHOSPHORUS BLOOD (05/21/2023 4:50 AM CDT) Phosphorus 4.6 2.9 - 5.1 mg/dL 05/21/2023 5:35 AM CDT [facility] Blood BLOOD SPECIMEN / Unknown Lab Venipuncture / Unknown 05/21/2023 4:50 AM CDT 05/21/2023 5:18 AM CDT Alfonso Jasmine MD LAB - CHEMISTRY ORD ERABLES Performing Organization Address City/[facility]/ZIP Co de Phone Number [address] [address], [place] [phone] * CULTURE BLOOD (05/21/2023 4:50 AM CDT) Culture No growth day 5 CHARLES 05/26/2023 8:30 AM CDT [facility]CROBI[facility] Blood PERIPHERAL BLOOD / Unknown Lab Venipuncture / Unknown 05/21/2023 4:50 AM CDT 05/21/2023 5:06 AM CDT Sameer Navarro MD LAB - MICROBIOLOGY O RDERABLES [facility]CRO[facility] [address] [place] [address], [facility] [phone] * VANCOMYCIN LEVEL TROUGH (05/21/2023 4:50 AM CDT) Vancomycin Trough 15.5 10.0 - 20.0 ug/mL 05/21/2023 5:41 AM CDT [facility] Blood BLOOD SPECIMEN / Unknown Lab Venipuncture / Unknown 05/21/2023 4:50 AM CDT 05/21/2023 5:30 AM CDT Narrative [facility] - 05/21/2023 5:41 AM CDT See institution protocol. Irene Walker MD LAB - CHEMISTRY ORDMichaela OLVERA [address] [address], [place] [phone] * GLUCOSE - POINT OF CARE (05/21/2023 2:28 AM CDT) Glucose WB/POC 101 70 - 115 mg/dL 05/21/2023 2:32 AM CDT [facility] Specimen Type Cap Fingerstick 2022 2:32 AM CDT [facility] Blood BLOOD SPECIMEN / Unknown 05/21/2023 2:28 AM CDT 05/21/2023 2:32 AM CDT Sameer Navarro MD LAB - POINT OF CARE ORDERABLES [address] [address], [place] [phone] * (ABNORMAL) GLUCOSE - POINT OF CARE (05/20/2023 11:42 PM CDT) Glucose WB/POC 131(H) 70 - 115 mg/dL 05/21/2023 12:10 AM CDT [facility] Specimen Type Cap Fingerstick 2022 12:10 AM CDT [facility] Blood BLOOD SPECIMEN / Unknown 05/20/2023 11:42 PM CDT 05/21/2023 12:10 AM CDT Sameer Navarro MD LAB - POINT OF CARE ORDERABLES [address] [address], [place] [phone] * (ABNORMAL) GLUCOSE - POINT OF CARE (05/20/2023 8:16 PM CDT) Glucose WB/POC 127(H) 70 - 115 mg/dL 05/20/2023 8:27 PM CDT [facility] Specimen Type Cap Fingerstick 2022 8:27 PM CDT [facility] Blood BLOOD SPECIMEN / Unknown 05/20/2023 8:16 PM CDT 05/20/2023 8:27 PM CDT Sameer Navarro MD LAB - POINT OF CARE ORDERABLES [address] [address], [place] [phone] * (ABNORMAL) GLUCOSE - POINT OF CARE (05/20/2023 6:25 PM CDT) Glucose WB/POC 122(H) 70 - 115 mg/dL 05/20/2023 7:02 PM CDT [facility] Specimen Type Cap Fingerstick 2022 7:02 PM CDT [facility] Blood BLOOD SPECIMEN / Unknown 05/20/2023 6:25 PM CDT 05/20/2023 7:02 PM CDT Sameer Navarro MD LAB - POINT OF CARE ORDERABLES [address] [address], [place] [phone] * GLUCOSE - POINT OF CARE (05/20/2023 11:57 AM CDT) Glucose WB/POC 90 70 - 115 mg/dL 05/20/2023 11:58 AM CDT [facility] Specimen Type Cap Fingerstick 2022 11:58 AM CDT [facility] Blood BLOOD SPECIMEN / Unknown 05/20/2023 11:57 AM CDT 05/20/2023 11:58 AM CDT Sameer Navarro MD LAB - POINT OF CARE ORDERABLES Performing Organization Address City/[facility]/ZIP Co de Phone Number [address] [address], [place] [phone] * (ABNORMAL) VANCOMYCIN LEVEL PEAK (05/20/2023 9:18 AM CDT) Vancomycin Peak 20.1(L) 25.0 - 40.0 ug/mL 05/20/2023 10:01 AM CDT [facility] Blood BLOOD SPECIMEN / Unknown Lab Venipuncture / Unknown 05/20/2023 9:18 AM CDT 05/20/2023 9:22 AM CDT Narrative [facility] - 05/20/2023 10:01 AM CDT See institution protocol. Data does not support the use of vancomycin peak concentration for efficacy. Irene Walker MD LAB - CHEMISTRY DIVINA OLVERA Performing Organization Address [facility]/ZIP Co de Phone Number [address] [address], [place] [phone] * GLUCOSE - POINT OF CARE (05/20/2023 7:41 AM CDT) Glucose WB/POC 101 70 - 115 mg/dL 05/20/2023 7:43 AM CDT [facility] Specimen Type Cap Fingerstick 2022 7:43 AM CDT [facility] Blood BLOOD SPECIMEN / Unknown 05/20/2023 7:41 AM CDT 05/20/2023 7:43 AM CDT Jed Stevenson MD LAB - POINT OF CARE ORDERABLES Performing Organization Address City/[facility]/ZIP Co de Phone Number [address] [address], [place] [phone] * (ABNORMAL) CBC W AUTO DIFFERENTIAL (05/20/2023 5:42 AM CDT) WBC 6.3 3.5 - 10.5 10? 3 /uL 05/20/2023 7:50 AM [facility] RBC 3.47(L) 3.80 - 5.20 10? 6 /uL 05/20/2023 7:50 AM [facility] Hemoglobin 9.4(L) 12.0 - 15.6 g/dL 05/20/2023 7:50 AM [facility] Hematocrit 32.6(L) 35.0 - 45.0 % 05/20/2023 7:50 AM [facility] MCV 93.9 80.7 - 98.3 fL 05/20/2023 7:50 AM [facility] MCH 27.1 26.7 - 34.0 pg 05/20/2023 7:50 AM [facility] MCHC 28.8(L) 30.8 - 35.9 g/dL 05/20/2023 7:50 AM [facility] RDW-SD 75.3(H) 36.0 - 50.0 fL 05/20/2023 7:50 AM [facility] RDW-CV 21.9(H) 11.2 - 14.8 % 05/20/2023 7:50 AM [facility] Platelet Count 341 150 - 400 10? 3 /uL 05/20/2023 7:50 AM [facility] MPV 9.3(L) 9.4 - 12.9 fL 05/20/2023 7:50 AM [facility] nRBC Absolute 0.02(H) 0 10? 3 /uL 05/20/2023 7:50 AM [facility] nRBC Auto 0.3(H) 0 /100 WBC 05/20/2023 7:50 AM [facility] Neutrophils % 49.8 35.0 - 70.0 % 05/20/2023 7:50 AM [facility] Lymphocytes % 26.1 20.0 - 43.0 % 05/20/2023 7:50 AM [facility] Monocytes % 11.1 5.0 - 13.0 % 05/20/2023 7:50 AM [facility] Eosinophils % 12.2(H) 0.0 - 6.0 % 05/20/2023 7:50 AM [facility] Basophil % 0.3 0.0 - 2.0 % 05/20/2023 7:50 AM [facility] Neutrophils Absolute 3.15 1.60 - 7.00 10? 3 /uL 05/20/2023 7:50 AM [facility] Lymphocyte Absolute 1.65 1.10 - 3.90 10? 3 /uL 05/20/2023 7:50 AM [facility] Monocytes Absolute 0.70 0.26 - 1.07 10? 3 /uL 05/20/2023 7:50 AM [facility] Eosinophils Absolute 0.77(H) 0.00 - 0.47 10? 3 /uL 05/20/2023 7:50 AM [facility] Basophils Absolute 0.02 0.00 - 0.08 10? 3 /uL 05/20/2023 7:50 AM [facility] Immature Granulocytes % 0.5 0.0 - 1.0 % 05/20/2023 7:50 AM [facility] Immature Granulocytes Absolute 0.03 05/20/2023 7:50 AM [facility] Blood BLOOD SPECIMEN / Unknown Lab Venipuncture / Unknown 05/20/2023 5:42 AM CDT 05/20/2023 7:10 AM CDT Alfonso Jasmine MD LAB - HEMATOLOGY OR DERABLES [facility] [address] [place] [address], [facility] [phone] * (ABNORMAL) COMPREHENSIVE METABOLIC PANEL (05/20/2023 5:42 AM CDT) BUN 12 7 - 26 mg/dL 05/20/2023 7:34 AM T [facility] Creatinine 1.65(H) 0.56 - 0.96 mg/dL 05/20/2023 7:34 AM [facility] Sodium 143 136 - 145 mmol/L 05/20/2023 7:34 AM [facility] Potassium 3.6 3.5 - 4.5 mmol/L 05/20/2023 7:34 AM [facility] Chloride 110(H) 98 - 107 mmol/L 05/20/2023 7:34 AM [facility] CO2 29 22 - 29 mmol/L 05/20/2023 7:34 AM [facility] Glucose 93 70 - 115 mg/dL 05/20/2023 7:34 AM [facility] Calcium 8.0(L) 8.4 - 10.2 mg/dL 05/20/2023 7:34 AM [facility] Protein Total 5.4(L) 6.0 - 8.3 g/dL 05/20/2023 7:34 AM [facility] Albumin 1.4(L) 3.4 - 5.0 g/dL 05/20/2023 7:34 AM [facility] Bilirubin Total 0.1(L) 0.2 - 1.2 mg/dL 05/20/2023 7:34 AM [facility] Alkaline Phosphatase 153(H) 40 - 150 U/L 05/20/2023 7:34 AM [facility] ALT 5 5 - 55 U/L 05/20/2023 7:34 AM [facility] AST 9 5 - 34 U/L 05/20/2023 7:34 AM [facility] Anion Gap 8 8 - 18 05/20/2023 7:34 AM [facility] BUN/Creatinine Ratio 7 7 - 23 05/20/2023 7:34 AM [facility] Osmolality Calculated 295 270 - 300 mOsm/kg 05/20/2023 7:34 AM [facility] Albumin/Globulin Ratio 0.4(L) 1.1 - 2.3 05/20/2023 7:34 AM [facility] eGFR by CKD-EPI 43(L) >=90 mL/min/1.7 3 m2 05/20/2023 7:34 AM [facility] Blood BLOOD SPECIMEN / Unknown Lab Venipuncture / Unknown 05/20/2023 5:42 AM CDT 05/20/2023 7:08 AM CDT Alfonso Jasmine MD LAB - CHEMISTRY ORD ERABLES [address] [address], [place] [phone] * MAGNESIUM BLOOD (05/20/2023 5:42 AM CDT) Magnesium 1.9 1.6 - 2.6 mg/dL 05/20/2023 7:34 AM CDT [facility] Blood BLOOD SPECIMEN / Unknown Lab Venipuncture / Unknown 05/20/2023 5:42 AM CDT 05/20/2023 7:08 AM CDT Alfonso Jasmine MD LAB - CHEMISTRY ORD ERABLES Performing Organization Address City/[facility]/ZIP Co de Phone Number [address] [address], [place] [phone] * PHOSPHORUS BLOOD (05/20/2023 5:42 AM CDT) Phosphorus 4.6 2.9 - 5.1 mg/dL 05/20/2023 7:34 AM CDT [facility] Blood BLOOD SPECIMEN / Unknown Lab Venipuncture / Unknown 05/20/2023 5:42 AM CDT 05/20/2023 7:08 AM CDT Alfonso Jasmine MD LAB - CHEMISTRY ORD ERABLES [address] [address], [place] [phone] * GLUCOSE - POINT OF CARE (05/20/2023 4:40 AM CDT) Glucose WB/POC 110 70 - 115 mg/dL 05/20/2023 4:45 AM CDT [facility] Specimen Type Cap Fingerstick 2022 4:45 AM CDT [facility] Blood BLOOD SPECIMEN / Unknown 05/20/2023 4:40 AM CDT 05/20/2023 4:45 AM CDT Jed Stevenson MD LAB - POINT OF CARE ORDERABLES [facility] [address] [place] [address], [place] [phone] * GLUCOSE - POINT OF CARE (05/19/2023 11:49 PM CDT) Glucose WB/POC 112 70 - 115 mg/dL 05/19/2023 11:54 PM CDT [facility] Specimen Type Cap Fingerstick 2022 11:54 PM CDT [facility] Blood BLOOD SPECIMEN / Unknown 05/19/2023 11:49 PM CDT 05/19/2023 11:54 PM CDT Jed Stevenson MD LAB - POINT OF CARE ORDERABLES Performing Organization Address City/[facility]/ZIP Co de Phone Number [facility] [address] [place] [address], [place] [phone] * GLUCOSE - POINT OF CARE (05/19/2023 4:46 PM CDT) Glucose WB/POC 93 70 - 115 mg/dL 05/19/2023 4:47 PM CDT [facility] Specimen Type Cap Fingerstick 2022 4:47 PM CDT [facility] Blood BLOOD SPECIMEN / Unknown 05/19/2023 4:46 PM CDT 05/19/2023 4:47 PM CDT Jed Stevenson MD LAB - POINT OF CARE ORDERABLES [facility] [address] [place] [address], [place] [phone] * CARDIAC EKG ORDER (05/19/2023 2:32 PM CDT) Narrative 05/19/2023 2:32 PM CDT Ordered by an unspecified provider. Scanned Document CARDIAC SERVICES ORD ERABLES * CULTURE BLOOD (05/19/2023 12:33 PM CDT) Culture No growth day 5 [facility] 05/24/2023 4:[address] [facility] Blood PERIPHERAL BLOOD / Unknown Lab Venipuncture / Unknown 05/19/2023 12:33 PM CDT 05/19/2023 12:38 PM CDT Jed Stevenson MD LAB - MICROBIOLOGY O DARRELL Performing Organization Address [facility]/ZIP Co de Phone Number [facility] [address] [place] [address], [facility] [phone] * CULTURE BLOOD (05/19/2023 12:31 PM CDT) Culture No growth day 5 [facility] 05/24/2023 4:[address] [facility] Blood PERIPHERAL BLOOD / Unknown Lab Venipuncture / Unknown 05/19/2023 12:31 PM CDT 05/19/2023 12:38 PM CDT Jed Stevenson MD LAB - MICROBIOLOGY O D[place]RELL Performing Organization Address [facility]/ZIP Co de Phone Number [facility] [address] [place] [address], [facility] [phone] * (ABNORMAL) GLUCOSE - POINT OF CARE (05/19/2023 12:29 PM CDT) Glucose WB/POC 118(H) 70 - 115 mg/dL 05/19/2023 12:31 PM CDT [facility] Specimen Type Cap Fingerstick 2022 12:31 PM CDT [facility] Blood BLOOD SPECIMEN / Unknown 05/19/2023 12:29 PM CDT 05/19/2023 12:31 PM CDT Jed Stevenson MD LAB - POINT OF CARE ORDERABLES [address] [address], [facility] [phone] * GLUCOSE - POINT OF CARE (05/19/2023 10:34 AM CDT) Glucose WB/POC 105 70 - 115 mg/dL 05/19/2023 10:39 AM CDT [facility] Specimen Type Cap Fingerstick 2022 10:39 AM CDT [facility] Blood BLOOD SPECIMEN / Unknown 05/19/2023 10:34 AM CDT 05/19/2023 10:38 AM CDT Jed Stevenson MD LAB - POINT OF CARE ORDERABLES Performing Organization Address [facility]/ZIP Co de Phone Number [address] [address], [facility] [phone] * VAS RIGHT VENOUS DUPLEX UE (05/19/2023 8:41 AM CDT) Anatomical Region Laterality Modality Upper Extremity Intravascular Ul trasound 05/19/2023 8:24 AM CDT Narrative Procedure Note Shirley Desai MD - 05/19/2023 Alfonso Jasmine MD VASCULAR LAB ORDERA BLES * (ABNORMAL) RBC MORPHOLOGY (05/19/2023 6:38 AM CDT) Platelet Estimate Adequate Adequate 023 8:02 AM CDT [facility] Anisocytosis 1+(A) None 05/19/2023 8:02 AM CDT [facility] Hypochromia Few(A) None 05/19/2023 8:02 AM CDT [facility] Polychromasia Few(A) None 05/19/2023 8:02 AM CDT [facility] Schistocytes Occasional( A) None 05/19/2023 8:02 AM CDT [facility] Blood BLOOD SPECIMEN / Unknown Lab Venipuncture / Unknown 05/19/2023 6:38 AM CDT 05/19/2023 6:51 AM CDT Alfonso Jasmine MD LAB - HEMATOLOGY OR DERABLES [facility] [address] [place] [address], [facility] [phone] * (ABNORMAL) CBC W AUTO DIFFERENTIAL (05/19/2023 6:38 AM CDT) WBC 6.1 3.5 - 10.5 10? 3 /uL 05/19/2023 6:59 AM CDT [facility] RBC 3.31(L) 3.80 - 5.20 10? 6 /uL 05/19/2023 6:59 AM T [facility] Hemoglobin 8.9(L) 12.0 - 15.6 g/dL 05/19/2023 6:59 AM [facility] Hematocrit 30.9(L) 35.0 - 45.0 % 05/19/2023 6:59 AM [facility] MCV 93.4 80.7 - 98.3 fL 05/19/2023 6:59 AM T [facility] MCH 26.9 26.7 - 34.0 pg 05/19/2023 6:59 AM T [facility] MCHC 28.8(L) 30.8 - 35.9 g/dL 05/19/2023 6:59 AM T [facility] RDW-SD 74.4(H) 36.0 - 50.0 fL 05/19/2023 6:59 AM T [facility] RDW-CV 22.2(H) 11.2 - 14.8 % 05/19/2023 6:59 AM [facility] Platelet Count 328 150 - 400 10? 3 /uL 05/19/2023 6:59 AM [facility] MPV 9.2(L) 9.4 - 12.9 fL 05/19/2023 6:59 AM T [facility] nRBC Absolute 0.03(H) 0 10? 3 /uL 05/19/2023 6:59 AM [facility] nRBC Auto 0.5(H) 0 /100 WBC 05/19/2023 6:59 AM [facility] Neutrophils % 53.2 35.0 - 70.0 % 05/19/2023 6:59 AM [facility] Lymphocytes % 23.7 20.0 - 43.0 % 05/19/2023 6:59 AM [facility] Monocytes % 10.5 5.0 - 13.0 % 05/19/2023 6:59 AM [facility] Eosinophils % 11.8(H) 0.0 - 6.0 % 05/19/2023 6:59 AM [facility] Basophil % 0.3 0.0 - 2.0 % 05/19/2023 6:59 AM [facility] Neutrophils Absolute 3.25 1.60 - 7.00 10? 3 /uL 05/19/2023 6:59 AM [facility] Lymphocyte Absolute 1.45 1.10 - 3.90 10? 3 /uL 05/19/2023 6:59 AM [facility] Monocytes Absolute 0.64 0.26 - 1.07 10? 3 /uL 05/19/2023 6:59 AM [facility] Eosinophils Absolute 0.72(H) 0.00 - 0.47 10? 3 /uL 05/19/2023 6:59 AM [facility] Basophils Absolute 0.02 0.00 - 0.08 10? 3 /uL 05/19/2023 6:59 AM [facility] Immature Granulocytes % 0.5 0.0 - 1.0 % 05/19/2023 6:59 AM [facility] Immature Granulocytes Absolute 0.03 05/19/2023 6:59 AM [facility] Blood BLOOD SPECIMEN / Unknown Lab Venipuncture / Unknown 05/19/2023 6:38 AM CDT 05/19/2023 6:51 AM T Alfonso Jasmine MD LAB - HEMATOLOGY OR DERABLES [facility] [address] [place] [address] [phone] * (ABNORMAL) COMPREHENSIVE METABOLIC PANEL (05/19/2023 6:38 AM [facility]) BUN 12 7 - 26 mg/dL 05/19/2023 7:15 AM [facility] Creatinine 1.68(H) 0.56 - 0.96 mg/dL 05/19/2023 7:15 AM [facility] Sodium 141 136 - 145 mmol/L 05/19/2023 7:15 AM [facility] Potassium 3.8 3.5 - 4.5 mmol/L 05/19/2023 7:15 AM [facility] Chloride 111(H) 98 - 107 mmol/L 05/19/2023 7:15 AM [facility] CO2 27 22 - 29 mmol/L 05/19/2023 7:15 AM [facility] Glucose 99 70 - 115 mg/dL 05/19/2023 7:15 AM [facility] Calcium 8.0(L) 8.4 - 10.2 mg/dL 05/19/2023 7:15 AM [facility] Protein Total 5.3(L) 6.0 - 8.3 g/dL 05/19/2023 7:15 AM [facility] Albumin 1.4(L) 3.4 - 5.0 g/dL 05/19/2023 7:15 AM [facility] Bilirubin Total 0.1(L) 0.2 - 1.2 mg/dL 05/19/2023 7:15 AM [facility] Alkaline Phosphatase 160(H) 40 - 150 U/L 05/19/2023 7:15 AM [facility] ALT 5 5 - 55 U/L 05/19/2023 7:15 AM [facility] AST 10 5 - 34 U/L 05/19/2023 7:15 AM [facility] Anion Gap 7(L) 8 - 18 05/19/2023 7:15 AM [facility] BUN/Creatinine Ratio 7 7 - 23 05/19/2023 7:15 AM [facility] Osmolality Calculated 292 270 - 300 mOsm/kg 05/19/2023 7:15 AM CDT [facility] Albumin/Globulin Ratio 0.4(L) 1.1 - 2.3 05/19/2023 7:15 AM CDT [facility] eGFR by CKD-EPI 42(L) >=90 mL/min/1.7 3 m2 05/19/2023 7:15 AM CDT [facility] Blood BLOOD SPECIMEN / Unknown Lab Venipuncture / Unknown 05/19/2023 6:38 AM CDT 05/19/2023 6:51 AM CDT Alfonso Jasmine MD LAB - CHEMISTRY ORD ERABLES Performing Organization Address City/[facility]/ZIP Co de Phone Number [address] [address], [facility] [phone] * MAGNESIUM BLOOD (05/19/2023 6:38 AM CDT) Magnesium 2.0 1.6 - 2.6 mg/dL 05/19/2023 7:15 AM CDT [facility] Blood BLOOD SPECIMEN / Unknown Lab Venipuncture / Unknown 05/19/2023 6:38 AM CDT 05/19/2023 6:51 AM CDT Alfonso Jasmine MD LAB - CHEMISTRY ORD ERABLES Performing Organization Address City/[facility]/ZIP Co de Phone Number [address] [address], [place] [phone] * PHOSPHORUS BLOOD (05/19/2023 6:38 AM CDT) Phosphorus 4.6 2.9 - 5.1 mg/dL 05/19/2023 7:15 AM CDT [facility] Blood BLOOD SPECIMEN / Unknown Lab Venipuncture / Unknown 05/19/2023 6:38 AM CDT 05/19/2023 6:51 AM CDT Alfonso Jasmine MD LAB - CHEMISTRY ORD ERABLES [address] [place] [address], [place] [phone] * (ABNORMAL) GLUCOSE - POINT OF CARE (05/19/2023 1:36 AM CDT) Glucose WB/POC 121(H) 70 - 115 mg/dL 05/19/2023 1:41 AM CDT [facility] Specimen Type Cap Fingerstick 2022 1:41 AM CDT [facility] Blood BLOOD SPECIMEN / Unknown 05/19/2023 1:36 AM CDT 05/19/2023 1:41 AM CDT Jed Stevenson MD LAB - POINT OF CARE ORDERABLES [facility] [address] [place] [address], [place] [phone] * (ABNORMAL) GLUCOSE - POINT OF CARE (05/18/2023 9:00 PM CDT) Glucose WB/POC 118(H) 70 - 115 mg/dL 05/18/2023 9:05 PM CDT [facility] Specimen Type Cap Fingerstick 2022 9:05 PM CDT [facility] Blood BLOOD SPECIMEN / Unknown 05/18/2023 9:00 PM CDT 05/18/2023 9:05 PM CDT Jed Stevenson MD LAB - POINT OF CARE ORDERABLES [facility] [address] [place] [address], [place] [phone] * GLUCOSE - POINT OF CARE (05/18/2023 4:50 PM CDT) Glucose WB/POC 90 70 - 115 mg/dL 05/18/2023 4:54 PM CDT [facility] Specimen Type Cap Fingerstick 2022 4:54 PM CDT [facility] Blood BLOOD SPECIMEN / Unknown 05/18/2023 4:50 PM CDT 05/18/2023 4:54 PM CDT Jed Stevenson MD LAB - POINT OF CARE ORDERABLES [address] [address], [place] [phone] * (ABNORMAL) PROTEIN CREATININE RATIO URINE RANDOM PNL (05/18/2023 2:53 PM CDT) Protein Urine 214 Not Established mg/dL 05/18/2023 8:10 PM CDT [facility] Comment:Result obtained by d ilution. Creatinine Urine 20 Not Established mg/dL 05/18/2023 8:10 PM CDT [facility] Comment:Result obtained by karsten kimution. Protein/Creati nine Ratio Urine 10.70(H) <0.10 05/18/2023 8:10 PM CDT [facility] Urine URINE SPECIMEN OBTAINED BY CLEAN CATCH PROCEDURE / Unknown Collection / Unknown 05/18/2023 2:53 PM CDT 05/18/2023 3:05 PM CDT Irene Walker MD LAB - URINE CHEMISTR Y ORDERABLES [address] [address], [place] [phone] * GLUCOSE - POINT OF CARE (05/18/2023 1:56 PM CDT) Glucose WB/POC 108 70 - 115 mg/dL 05/18/2023 2:00 PM CDT [facility] Specimen Type Cap Fingerstick 2022 2:00 PM CDT [facility] Blood BLOOD SPECIMEN / Unknown 05/18/2023 1:56 PM CDT 05/18/2023 2:00 PM CDT Jed Stevenson MD LAB - POINT OF CARE ORDERABLES [address] [address], [place] [phone] * GLUCOSE - POINT OF CARE (05/18/2023 7:56 AM CDT) Pathologist [facility] Glucose WB/POC 103 70 - 115 mg/dL 05/18/2023 8:01 AM CDT [facility] Specimen Type Cap Fingerstick 2022 8:01 AM CDT [facility] Blood BLOOD SPECIMEN / Unknown 05/18/2023 7:56 AM CDT 05/18/2023 8:01 AM CDT Irene Walker MD LAB - POINT OF CARE ORDERABLES [address] [address], [facility] [phone] * (ABNORMAL) RBC MORPHOLOGY (05/18/2023 6:17 AM CDT) [facility] Platelet Estimate Adequate Adequate 05/18/2023 8:02 AM CDT [facility] Anisocytosis 2+(A) None 05/18/2023 8:02 AM CDT [facility] Blood BLOOD SPECIMEN / Unknown Lab Venipuncture / Unknown 05/18/2023 6:17 AM CDT 05/18/2023 6:47 AM CDT Alfonso Jasmine MD LAB - HEMATOLOGY OR DERABLES [address] [address], [facility] [phone] * (ABNORMAL) CBC W AUTO DIFFERENTIAL (05/18/2023 6:17 AM CDT) Pathologist [facility] WBC 8.0 3.5 - 10.5 10? 3 /uL 05/18/2023 7:00 AM CDT [facility] RBC 3.37(L) 3.80 - 5.20 10? 6 /uL 05/18/2023 7:00 AM T [facility] Hemoglobin 9.2(L) 12.0 - 15.6 g/dL 05/18/2023 7:00 AM T [facility] Hematocrit 31.4(L) 35.0 - 45.0 % 05/18/2023 7:00 AM [facility] MCV 93.2 80.7 - 98.3 fL 05/18/2023 7:00 AM [facility] MCH 27.3 26.7 - 34.0 pg 05/18/2023 7:00 AM [facility] MCHC 29.3(L) 30.8 - 35.9 g/dL 05/18/2023 7:00 AM [facility] RDW-SD 73.6(H) 36.0 - 50.0 fL 05/18/2023 7:00 AM [facility] RDW-CV 22.3(H) 11.2 - 14.8 % 05/18/2023 7:00 AM [facility] Platelet Count 356 150 - 400 10? 3 /uL 05/18/2023 7:00 AM [facility] MPV 9.6 9.4 - 12.9 fL 05/18/2023 7:00 AM [facility] nRBC Absolute 0.02(H) 0 10? 3 /uL 05/18/2023 7:00 AM [facility] nRBC Auto 0.3(H) 0 /100 WBC 05/18/2023 7:00 AM [facility] Neutrophils % 56.9 35.0 - 70.0 % 05/18/2023 7:00 AM [facility] Lymphocytes % 19.5(L) 20.0 - 43.0 % 05/18/2023 7:00 AM [facility] Monocytes % 12.0 5.0 - 13.0 % 05/18/2023 7:00 AM [facility] Eosinophils % 10.9(H) 0.0 - 6.0 % 05/18/2023 7:00 AM [facility] Basophil % 0.3 0.0 - 2.0 % 05/18/2023 7:00 AM [facility] Neutrophils Absolute 4.56 1.60 - 7.00 10? 3 /uL 05/18/2023 7:00 AM [facility] Lymphocyte Absolute 1.56 1.10 - 3.90 10? 3 /uL 05/18/2023 7:00 AM [facility] Monocytes Absolute 0.96 0.26 - 1.07 10? 3 /uL 05/18/2023 7:00 AM [facility] Eosinophils Absolute 0.87(H) 0.00 - 0.47 10? 3 /uL 05/18/2023 7:00 AM [facility] Basophils Absolute 0.02 0.00 - 0.08 10? 3 /uL 05/18/2023 7:00 AM [facility] Immature Granulocytes % 0.4 0.0 - 1.0 % 05/18/2023 7:00 AM [facility] Immature Granulocytes Absolute 0.03 05/18/2023 7:00 AM [facility] Blood BLOOD SPECIMEN / Unknown Lab Venipuncture / Unknown 05/18/2023 6:17 AM CDT 05/18/2023 6:47 AM T Alfonso Jasmine MD LAB - HEMATOLOGY OR DERABLES Performing Organization Address [facility]/State/ZIP Co de Phone Number [facility] [address] [place] [address], [facility] [phone] * (ABNORMAL) COMPREHENSIVE METABOLIC PANEL (05/18/2023 6:17 AM CDT) BUN 16 7 - 26 mg/dL 05/18/2023 7:19 AM [facility] Creatinine 1.71(H) 0.56 - 0.96 mg/dL 05/18/2023 7:19 AM [facility] Sodium 144 136 - 145 mmol/L 05/18/2023 7:19 AM [facility] Potassium 3.6 3.5 - 4.5 mmol/L 05/18/2023 7:19 AM [facility] Chloride 111(H) 98 - 107 mmol/L 05/18/2023 7:19 AM [facility] CO2 25 22 - 29 mmol/L 05/18/2023 7:19 AM [facility] Glucose 103 70 - 115 mg/dL 05/18/2023 7:19 AM [facility] Calcium 8.0(L) 8.4 - 10.2 mg/dL 05/18/2023 7:19 AM [facility] Protein Total 5.7(L) 6.0 - 8.3 g/dL 05/18/2023 7:19 AM [facility] Albumin 1.5(L) 3.4 - 5.0 g/dL 05/18/2023 7:19 AM [facility] Bilirubin Total 0.2 0.2 - 1.2 mg/dL 05/18/2023 7:19 AM [facility] Alkaline Phosphatase 175(H) 40 - 150 U/L 05/18/2023 7:19 AM [facility] ALT 6 5 - 55 U/L 05/18/2023 7:19 AM [facility] AST 11 5 - 34 U/L 05/18/2023 7:19 AM [facility] Anion Gap 12 8 - 18 05/18/2023 7:19 AM [facility] BUN/Creatinine Ratio 9 7 - 23 05/18/2023 7:19 AM [facility] Osmolality Calculated 299 270 - 300 mOsm/kg 05/18/2023 7:19 AM [facility] Albumin/Globulin Ratio 0.4(L) 1.1 - 2.3 05/18/2023 7:19 AM [facility] eGFR by CKD-EPI 41(L) >=90 mL/min/1.7 3 m2 05/18/2023 7:19 AM [facility] Blood BLOOD SPECIMEN / Unknown Lab Venipuncture / Unknown 05/18/2023 6:17 AM CDT 05/18/2023 6:47 AM T Alfonso Jasmine MD LAB - CHEMISTRY ORD ERABLES [facility] [address] [place] [address], [facility] [phone] * MAGNESIUM BLOOD (05/18/2023 6:17 AM CDT) Magnesium 2.1 1.6 - 2.6 mg/dL 05/18/2023 7:19 AM CDT [facility] Blood BLOOD SPECIMEN / Unknown Lab Venipuncture / Unknown 05/18/2023 6:17 AM CDT 05/18/2023 6:47 AM CDT Alfonso Jasmine MD LAB - CHEMISTRY ORD ERABLES [address] [address], [place] [phone] * PHOSPHORUS BLOOD (05/18/2023 6:17 AM CDT) Phosphorus 4.2 2.9 - 5.1 mg/dL 05/18/2023 7:15 AM CDT [facility] Blood BLOOD SPECIMEN / Unknown Lab Venipuncture / Unknown 05/18/2023 6:17 AM CDT 05/18/2023 6:47 AM CDT Alfonso Jasmine MD LAB - CHEMISTRY ORD ERABLES Performing Organization Address City/[facility]/ZIP Co de Phone Number [address] [address], [place] [phone] * VANCOMYCIN LEVEL RANDOM (05/18/2023 6:17 AM CDT) Vancomycin Random 11.0 Therapeutic Ranges not established for random specimens ug/mL 05/18/2023 7:54 AM CDT [facility] Blood BLOOD SPECIMEN / Unknown Lab Venipuncture / Unknown 05/18/2023 6:17 AM CDT 05/18/2023 6:45 AM CDT Narrative [facility] - 05/18/2023 7:54 AM CDT See institution protocol. Alfonso Jasmine MD LAB - CHEMISTRY ORD ERABLES [address] [address], [place] [phone] * CT ANGIO CHEST PULM EMBOLISM (05/18/2023 [...] 4.Cardiomegaly. > Dictated by Robert Woodruff MD (client services vice president). I, Sorin Veronica have personally reviewed and interpreted this examination/study. > Interpreting Provider: Sorin Veronica on 05/18/2023 1:37 PM Narrative 05/18/2023 1:37 PM CDT PROCEDURE: ??CT ANGIO CHEST PULM EMBOLISM, DATE/TIME OF EXAM: ??05/18/2023 1:14 AM, LOCATION ??[facility] INDICATION: R09.02: Hypoxia ADDITIONAL CLINICAL INFORMATION: [...] DATE/TIME OF EXAM: 05/18/2023 1:14 AM, LOCATION [facility] INDICATION: R09.02: Hypoxia ADDITIONAL CLINICAL INFORMATION: [...] 4.Cardiomegaly. > Dictated by Robert Woodruff MD (client services vice president). Sorin Kim have personally reviewed and interpreted this examination/study. > Interpreting Provider: Sorin Veronica on 05/18/2023 1:37 PM [address] J[address] MD CT ORDERABLES * CT HUMERUS RIGHT W CONTRAST (05/18/2023 [...] abscess. > Dictated by Robert Woodruff MD (client services vice president). Sorin Kim have personally reviewed and interpreted this examination/study. > Interpreting Provider: Sorin Veronica on 05/18/2023 1:39 PM Narrative 05/18/2023 1:39 PM CDT PROCEDURE: ??CT HUMERUS RIGHT W CONTRAST, DATE/TIME OF EXAM: ??05/18/2023 1:14 AM, LOCATION ??[facility] INDICATION: M79.89: Arm swelling ADDITIONAL CLINICAL [...] HUMERUS RIGHT W CONTRAST, DATE/TIME OF EXAM: :14 AM, LOCATION [facility] INDICATION: M79.89: Arm swelling ADDITIONAL CLINICAL [...] abscess. > Dictated by Robert Woodruff MD (client services vice president). I, Sorin Veronica have personally reviewed and interpreted this examination/study. > Interpreting Provider: Sorin Veronica on 05/18/2023 1:39 PM [address]so Jasmine MD CT ORDERABLES * TROPONIN-I HIGH SENSITIVE REFLEX 1HOUR (05/17/2023 11:40 PM CDT) Troponin I High Sensitive 3 <=14 ng/L 05/18/2023 12:21 AM CDT [facility] Delta Troponin I HS 05/18/2023 12:21 AM CDT [facility] Comment:Delta value intentio josé miguel not calculated. Baseline to 1 hour specimen collection interval exceeded. Blood BLOOD SPECIMEN / Unknown Venipuncture / Unknown 05/17/2023 11:40 PM CDT 05/17/2023 11:40 PM CDT Alfonso Jasmine MD LAB - CHEMISTRY ORD ERABLES Performing Organization Address [facility] Co de Phone Number [facility] [address] [place] [address], [facility] [phone] * EKG 12-LEAD (05/17/2023 10:06 PM CDT) Ventricular Rate 90 BPM SL MUSE Atrial Rate 90 BPM [facility] MUSE P-R Interval 160 ms [facility] MUSE QRS Duration ms 80 ms [facility] MUSE Q-T Interval ms 370 ms [facility] MUSE QTC Calculation (Bezet) 452 ms [facility] MUSE Calculated P [place] 43 degrees SL MUSE Calculated R [place] 7 degrees [facility] MUSE Calculated T [place] 26 degrees [facility] MUSE Interpretation EKG NORMAL SINUS RHYTHM NORMAL ECG Confirmed by LITZY WHITTAKER MDSHORE ([id number]) on 05/18/2023 11:42:30 AM [facility] MUSE 05/17/2023 10:0 6 PM CDT 05/18/2023 11:42 AM CDT Alfonso Jasmine MD ECG ORDERABLES Performing Organization Address [facility] Co de Phone Number [facility] MUSE * (ABNORMAL) BLOOD GASES SUZANNE + COOX PANEL (05/17/2023 10:06 PM CDT) Pathologist [facility] pH Venous 7.39 7.32 - 7.42 pH 05/17/2023 10:12 PM CDT [facility] pO2 Venous 54(H) 35 - 40 mmHg 05/17/2023 10:12 PM CDT [facility] pCO2 Venous 46 40 - 50 mmHg 05/17/2023 10:12 PM CDT [facility] HCO3 Venous 27.8 20 - 30 mmol/L 05/17/2023 10:12 PM CDT [facility] [facility] Base Excess Venous 2.4(H) -2.0 - 2.0 mmol/L 05/17/2023 10:12 PM [facility] Oxyhemoglobin Venous 80.0 % 05/03 10:12 PM [facility] Deoxyhemoglobin (HHB) Venous % 17.1 % 05/17/2023 10:12 PM [facility] Methemoglobin <0.8 0.0 - 2.0 % 05/17/2023 10:12 PM [facility] Carboxyhemoglobin 2.9(H) 0.0 - 2.0 % 2022 10:12 PM [facility] O2 Content Venous 10.3 Interpret within clinical context ml/dL 05/17/2023 10:12 PM [facility] Hemoglobin by COOX 9.1(L) 12.0 - 15.6 g/dL 05/17/2023 10:12 PM [facility] O2 Saturation Venous 82 >=70 % 05/03 10:12 PM [facility] FI O2 Mixed Venous 21.0 % 2022 10:12 PM [facility] Blood BLOOD SPECIMEN / Unknown Venipuncture / Unknown 05/17/2023 10:06 PM CDT 05/17/2023 10:11 PM CDT Narrative [facility] - 05/17/2023 10:12 PM CDT Carboxyhemoglobin Normal Concentration: Non-smokers: 0-2%; Smokers: 0-9%; Toxic: >20% Alfonso Jasmine MD LAB - BLOOD GASES O RDERABLES [facility] [address] [place] [address], [facility] [phone] * XR CHEST 1VW PORTABLE (05/17/2023 9:59 PM CDT) Anatomical Region Laterality Modality Chest Radiographic Nissa ging 05/17/2023 10:1 7 PM CDT Narrative 05/18/2023 10:32 PM CDT PROCEDURE: ??XR CHEST 1VW PORTABLE, DATE/TIME OF EXAM: ??05/17/2023 9:59 PM, LOCATION ??[facility] INDICATION: R09.02: Hypoxia ADDITIONAL CLINICAL INFORMATION: Ordering Provider Reason For Exam: ??r/o PNA COMPARISON: Chest x-ray from 04/27/2020 FINDINGS/IMPRESSION: A right PICC line is identified terminating in the right atrium. Improvement of mild pulmonary edema. There are small bilateral pleural effusions with lower lung atelectasis. No pneumothorax. Unchanged cardiomegaly. Report dictated by Golden Kiser DO (client services vice president). Arthur Kim MD have personally reviewed and interpreted this examination/study. > Interpreting Provider: Arthur Avery MD on 05/18/2023 10:32 PM Procedure Note Arthur Avery MD - 05/18/2023 PROCEDURE: XR CHEST 1VW PORTABLE, DATE/TIME OF EXAM: 05/17/2023 9:59PM, LOCATION [facility] INDICATION: R09.02: Hypoxia ADDITIONAL CLINICAL INFORMATION: Ordering Provider Reason For Exam: r/o PNA COMPARISON: Chest x-ray from 04/27/2020 FINDINGS/IMPRESSION: A right PICC line is identified terminating in the right atrium. Improvement of mild pulmonary edema. There are small bilateral pleural effusions with lower lung atelectasis. No pneumothorax. Unchanged cardiomegaly. Report dictated by Golden Kiser DO (client services vice president). Arthur Kim MD have personally reviewed and interpreted this examination/study. > Interpreting Provider: Arthur Avery MD on 05/18/2023 10:32 PM Alfonso Jasmine MD DIAGNOSTIC IMAGING ORDERABLES * (ABNORMAL) BCID PANEL (05/17/2023 9:51 PM CDT) Staphylococcus epidermidis Detected (A) Not detected 05/18/2023 9:44 PM CDT [facility] Blood PERIPHERAL BLOOD / Unknown Venipuncture / Unknown 05/17/2023 9:51 PM CDT 05/17/2023 9:59 PM CDT Narrative [facility] - 05/18/2023 9:44 PM CDT Blood Culture ID Panel performed by [employer] multiplex PCR. Test Panel includes: Antimicrobial Resistance Genes: Mec A/C and MREJ (methicillin-resistance gene-MRSA) and van A/B (vancomycin-resistance gene). Gram Positive Bacteria: Enterococcus faecalis, Enterococcus faecium, Staphylococcus (genus), Staphylococcus aureus, Staphylococcus epidermidis, Staphylococcus lugdunensis, Streptococcus (genus), Streptococcus agalactiae (Group B), Streptococcus pneumoniae, Streptococcus pyogenes (Group A). Alfonso Jasmine MD LAB - MICROBIOLOGY ORDERABLES Performing Organization Address [facility] Co de Phone Number [facility] [address] [place] [address], [facility] [phone] * HCG BETA BLOOD QUANTITATIVE (05/17/2023 9:51 PM CDT) [facility] Beta-hCG Total Quantitative <3 mIU/mL 05/17/2023 11:24 PM CDT [facility] Comment: HCG Numeric Result Interpretation: [...] / Unknown 05/17/2023 9:51 PM CDT 05/17/2023 10:09 PM CDT Alfonso Jasmine MD LAB - CHEMISTRY ORD ERABLES Performing Organization Address [facility] Co de Phone Number [facility] [address] [place] [address], [place] [phone] * (ABNORMAL) RBC MORPHOLOGY (05/17/2023 9:51 PM CDT) [facility] Platelet Estimate Adequate Adequate 023 10:39 PM CDT [facility] Anisocytosis 1+(A) None 05/17/2023 10:39 PM CDT [facility] Microcytes Occasional( A) None 05/17/2023 10:39 PM CDT [facility] Macrocytosis Occasional( A) None 05/17/2023 10:39 PM CDT [facility] Polychromasia Occasional( A) None 05/17/2023 10:39 PM CDT [facility] Target Cells Occasional( A) None 05/17/2023 10:39 PM CDT [facility] [place] Cells 1+(A) None 05/17/2023 10:39 PM CDT [facility] Blood BLOOD SPECIMEN / Unknown Venipuncture / Unknown 05/17/2023 9:51 PM CDT 05/17/2023 10:00 PM CDT Alfonso Jasmine MD LAB - HEMATOLOGY OR DERABLES Performing Organization Address [facility]/State/[facility] Co de Phone Number [facility] [address] [place] [address], [facility] [phone] * (ABNORMAL) B-TYPE NATRIURETIC PEPTIDE (05/17/2023 9:51 PM CDT) Pathologist [facility] BNP 476(H) <100 pg/mL 05/17/2023 10:43 PM CDT [facility] Comment: A decision threshold of 100 [...] 98.3 ? Blood BLOOD SPECIMEN / Unknown Venipuncture / Unknown 05/17/2023 9:51 PM CDT 05/17/2023 9:59 PM CDT Alfonso Jasmine MD LAB - CHEMISTRY ORD ERABLES Performing Organization Address [facility] de Phone Number [address] [address], [employer] [phone] * LACTIC ACID BLOOD (05/17/2023 9:51 PM CDT) Pathologist [facility] Lactic Acid-Stat 1.4 <=2.0 mmol/L 05/17/2023 10:23 PM CDT [facility] Blood BLOOD SPECIMEN / Unknown Venipuncture / Unknown 05/17/2023 9:51 PM CDT 05/17/2023 10:00 PM CDT Alfonso Jasmine MD LAB - CHEMISTRY ORD ClavisterBLES Performing Organization Address [facility] de Phone Number [address] [address], [place] [phone] * (ABNORMAL) CULTURE BLOOD (05/17/2023 9:51 PM CDT) Pathologist [facility] Culture Growth of Staphylococcus haemolyticus(AA) 05/21/2023 8:[address] [facility] Comment:Possible contaminant unless multiple cultures are positive for the same isolate. Culture Growth of Staphylococcus epidermidis(AA) CHARLES 05/21/2023 8:[address] [facility] Gram Stain Gram-positive cocci in clusters(AA) 05/21/2023 8:[address] [facility] Blood PERIPHERAL BLOOD / Unknown Venipuncture / Unknown 05/17/2023 9:51 PM CDT 05/17/2023 9:[address] [facility] - 05/21/2023 8:08 AM CDT Positive at 16.5 hours. Organism Antibiotic Method Susceptibility Staphylococcus epidermidis Oxacillin CHARLES >=4 ug/mL: Resistant Staphylococcus epidermidis Vancomycin CHARLES <=0.5 ug/mL: Susceptible Alfonso Jasmine MD LAB - MICROBIOLOGY ORDERABLES Performing Organization Address City/[facility]/ZIP Co de Phone Number [facility] [address] [place] [address], [facility] [phone] * TROPONIN-I HIGH SENSITIVE BASELINE + 1HR (05/17/2023 9:51 PM CDT) [facility] Troponin I High Sensitive <3 <=14 ng/L 05/17/2023 10:27 PM CDT [facility] Blood BLOOD SPECIMEN / Unknown Venipuncture / Unknown 05/17/2023 9:51 PM CDT 05/17/2023 10:08 PM CDT Alfonso Jasmine MD LAB - CHEMISTRY ORD ERABLES [facility] [address] [place] [address], [place] [phone] * (ABNORMAL) COMPREHENSIVE METABOLIC PANEL (05/17/2023 9:51 PM CDT) Pathologist [facility] BUN 15 7 - 26 mg/dL 05/17/2023 10:21 PM CDT [facility] Creatinine 1.78(H) 0.56 - 0.96 mg/dL 05/17/2023 10:21 PM [facility] Sodium 144 136 - 145 mmol/L 05/17/2023 10:21 PM [facility] Potassium 3.9 3.5 - 4.5 mmol/L 05/17/2023 10:21 PM [facility] Chloride 111(H) 98 - 107 mmol/L 05/17/2023 10:21 PM [facility] CO2 26 22 - 29 mmol/L 05/17/2023 10:21 PM [facility] Glucose 159(H) 70 - 115 mg/dL 05/17/2023 10:21 PM [facility] Calcium 7.8(L) 8.4 - 10.2 mg/dL 05/17/2023 10:21 PM [facility] Protein Total 5.7(L) 6.0 - 8.3 g/dL 05/17/2023 10:21 PM [facility] Albumin 1.5(L) 3.4 - 5.0 g/dL 05/17/2023 10:21 PM [facility] Bilirubin Total 0.1(L) 0.2 - 1.2 mg/dL 05/17/2023 10:21 PM [facility] Alkaline Phosphatase 179(H) 40 - 150 U/L 05/17/2023 10:21 PM [facility] ALT 7 5 - 55 U/L 05/17/2023 10:21 PM [facility] AST 9 5 - 34 U/L 05/17/2023 10:21 PM [facility] Anion Gap 11 8 - 18 05/17/2023 10:21 PM [facility] BUN/Creatinine Ratio 8 7 - 23 05/17/2023 10:21 PM [facility] Osmolality Calculated 302(H) 270 - 300 mOsm/kg 05/17/2023 10:21 PM [facility] Albumin/Globulin Ratio 0.4(L) 1.1 - 2.3 05/17/2023 10:21 PM [facility] eGFR by CKD-EPI 39(L) >=90 mL/min/1.7 3 m2 05/17/2023 10:21 PM [facility] Blood BLOOD SPECIMEN / Unknown Venipuncture / Unknown 05/17/2023 9:51 PM CDT 05/17/2023 10:09 PM CDT Alfonso Jasmine MD LAB - CHEMISTRY ORD ERABLES [facility] [address] [place] [address], [facility] [phone] * (ABNORMAL) CBC W AUTO DIFFERENTIAL (05/17/2023 9:51 PM CDT) WBC 8.1 3.5 - 10.5 10? 3 /uL 05/17/2023 10:03 PM [facility] RBC 3.42(L) 3.80 - 5.20 10? 6 /uL 05/17/2023 10:03 PM [facility] Hemoglobin 9.2(L) 12.0 - 15.6 g/dL 05/17/2023 10:03 PM [facility] Hematocrit 31.7(L) 35.0 - 45.0 % 05/17/2023 10:03 PM [facility] MCV 92.7 80.7 - 98.3 fL 05/17/2023 10:03 PM [facility] MCH 26.9 26.7 - 34.0 pg 05/17/2023 10:03 PM [facility] MCHC 29.0(L) 30.8 - 35.9 g/dL 05/17/2023 10:03 PM [facility] RDW-SD 74.1(H) 36.0 - 50.0 fL 05/17/2023 10:03 PM [facility] RDW-CV 22.6(H) 11.2 - 14.8 % 05/17/2023 10:03 PM [facility] Platelet Count 342 150 - 400 10? 3 /uL 05/17/2023 10:03 PM [facility] MPV 9.4 9.4 - 12.9 fL 05/17/2023 10:03 PM [facility] nRBC Absolute 0.04(H) 0 10? 3 /uL 05/17/2023 10:03 PM [facility] nRBC Auto 0.5(H) 0 /100 WBC 05/17/2023 10:03 PM [facility] Neutrophils % 57.1 35.0 - 70.0 % 05/17/2023 10:03 PM [facility] Lymphocytes % 22.3 20.0 - 43.0 % 05/17/2023 10:03 PM [facility] Monocytes % 10.0 5.0 - 13.0 % 05/17/2023 10:03 PM [facility] Eosinophils % 10.0(H) 0.0 - 6.0 % 05/17/2023 10:03 PM [facility] Basophil % 0.2 0.0 - 2.0 % 05/17/2023 10:03 PM [facility] Neutrophils Absolute 4.63 1.60 - 7.00 10? 3 /uL 05/17/2023 10:03 PM [facility] Lymphocyte Absolute 1.81 1.10 - 3.90 10? 3 /uL 05/17/2023 10:03 PM [facility] Monocytes Absolute 0.81 0.26 - 1.07 10? 3 /uL 05/17/2023 10:03 PM [facility] Eosinophils Absolute 0.81(H) 0.00 - 0.47 10? 3 /uL 05/17/2023 10:03 PM [facility] Basophils Absolute 0.02 0.00 - 0.08 10? 3 /uL 05/17/2023 10:03 PM [facility] Immature Granulocytes % 0.4 0.0 - 1.0 % 05/17/2023 10:03 PM [facility] Immature Granulocytes Absolute 0.03 05/17/2023 10:03 PM [facility] Blood BLOOD SPECIMEN / Unknown Venipuncture / Unknown 05/17/2023 9:51 PM CDT 05/17/2023 10:00 PM T Alfonso Jasmine MD LAB - HEMATOLOGY OR DERABLES Performing Organization Address City/State/[facility] Co de Phone Number [facility] [address] [place] [address] [phone] * (ABNORMAL) CULTURE BLOOD (05/17/2023 9:40 PM CDT) Culture Growth of Staphylococcus epidermidis(AA) CHARLES 05/23/2023 1:[address] [facility] Gram Stain Gram-positive cocci in clusters(AA) 05/23/2023 1:[address] [facility] Blood PERIPHERAL BLOOD / Unknown Venipuncture / Unknown 05/17/2023 9:40 PM CDT 05/17/2023 9:[address] [facility] - 05/23/2023 1:57 PM CDT Positive at 29 Hours 45 Minutes. Refer to previously reported susceptibility testing, specimen number:[id number] Alfonso Jasmine MD LAB - MICROBIOLOGY ORDERABLES [facility] [address] [place], [place] [address] [phone] documented in this encounter Visit Diagnoses Diagnosis Arm swelling- Primary Swelling of limb Hypoxia Hypoxemia Acute on chronic congestive heart failure, unspecified heart failure type (HCC) Bacteremia due to Gram-positive bacteria Bacteremia Thrombophlebitis Phlebitis and thrombophlebitis of unspecified site Swelling of right upper extremity Acute on chronic congestive heart failure, unspecified heart failure type (HCC) Swelling of right upper extremity Thrombophlebitis Phlebitis and thrombophlebitis of unspecified site documented in this encounter Administered Medications Inactive Administered Medications - up to 3 most recent administrations Medication Order MAR Action Action Date Dose Rate Site 0.9% NaCl injection 1-10 mL 1-10 mL, Intracatheter, PRN, Other, peripheral line flush, Starting on Fri05/18/23 at 0239, Until Fri05/23/23 at 1954, Flush peripheral IV catheter with 1-10 mL of normal saline before and after medications and prn to clear blood from the line or to verify patency. 0.9% NaCl injection 3 mL 3 mL, Intracatheter, EVERY 8 HOURS, First dose on Fri05/18/23 at 0600, Until Discontinued, Flush peripheral IV catheter with 3 mL of normal saline every 8 hours. $ Given 05/22/2023 9:10 PM CDT 3 mL $ Given 05/22/2023 5:39 AM CDT 3 mL $ Given 05/21/2023 9:06 PM CDT 3 mL amLODIPine (Norvasc) tablet 10 mg 10 mg, Oral, DAILY, First dose on Fri05/18/23 at 0900, Until Discontinued $ Given 05/18/2023 9:35 AM CDT 10 mg apixaban (Eliquis) tablet 10 mg 10 mg, Oral, 2 TIMES DAILY, 14 doses, First dose on Fri05/19/23 at 1200, Last dose on Fri05/25/23 at 2100 $ Given 05/23/2023 9:05 AM CDT 10 mg $ Given 05/22/2023 9:08 PM CDT 10 mg $ Given 05/22/2023 11:53 AM CDT 10 mg apixaban (Eliquis) tablet 5 mg 5 mg, Oral, 2 TIMES DAILY, First dose on Fri05/26/23 at 0900, Until Discontinued carvedilol (Coreg) tablet 12.5 mg 12.5 mg, Oral, 2 TIMES DAILY WITH MEALS, First dose on Fri05/18/23 at 0800, Until Discontinued, Take with food $ Given 05/23/2023 6:00 PM CDT 12.5 mg $ Given 05/23/2023 9:05 AM CDT 12.5 mg $ Given 05/22/2023 5:28 PM CDT 12.5 mg cefTRIAXone (Rocephin) 2,000 mg in 0.9% NaCl IV 50 mL IVPB 2,000 mg, at 100 mL/hr, Intravenous, EVERY 24 HOURS, First dose (after last modification) on [place] 05/18/23 at 0600, Until Discontinued, Ceftriaxone can cause precipitation when administered with calcium-containing fluids, including LR. Flush lines with a compatible fluid, such as D5W or NS before and after ceftriaxone dose. Admin through separate lumens is acceptable. , Indication for anti-infective therapy: Documented infection, Site of anti-infective therapy: Bone/Joint $ New Bag/Syringe 05/22/2023 5:39 AM CDT 2,000 mg 100 mL/hr $ New Bag/Syringe 05/21/2023 5:31 AM CDT 2,000 mg 100 mL /hr $ New Bag/Syringe 05/20/2023 5:20 AM CDT 2,000 mg 100 mL /hr ciprofloxacin (Cipro) tablet 750 mg 750 mg, Oral, EVERY 12 HOURS, 33 doses, First dose (after last modification) on [place] 05/22/23 at 2100, Last dose on 06/07/23 at 2100, Take with or without food. Take at least 2 hours before or 6 hours after sucralfate, metal cations such as iron, multivitamins with zinc, antacids containing aluminum, magnesium, or didanosine buffered tablets or powder for oral solution. Do not take with milk, yogurt, or calcium-fortified juice. , Indication for anti-infective therapy: Documented infection, Site of anti-infective therapy: Skin/soft tissue $ Given 05/23/2023 9:03 AM CDT 750 mg $ Given 05/22/2023 9:08 PM CDT 750 mg dextrose 10 % IV bolus 12.5 g, at 468.75 mL/hr, Intravenous, PRN, Other, Bedside Glucose less than 70 mg/dL -If NOT able to eat and/or NPO and with IV Access, Starting on Fri05/18/23 at 0313, Until Fri05/23/23 at 1953, If NOT able to eat and/or NPO [...] NPO and with IV Access, Starting on 05/18/23 at 0313, Until Fri05/23/23 at 1953, If NOT able to eat and/or NPO [...] IV STAT NOTIFY PROVIDER OF HYPOGLYCEMIC EVENT. doxycycline monohydrate capsule 100 mg 100 mg, Oral, EVERY 12 HOURS, 33 doses, First dose (after last modification) on [place] 05/22/23 at 2100, Last dose on 06/07/23 at 2100, Administer at least 2 hours before or 4 hours after antacids, sucralfate, metals (eg, iron, zinc), multivitamin preparations, tube feeds Administer with 8 oz of water to prevent localized caustic injury. Flush thoroughly with water if administered by enteral tube., Indication for anti-infective therapy: Documented infection, Site of anti-infective therapy: Skin/soft tissue $ Given 05/23/2023 9:05 AM CDT 100 mg $ Given 05/22/2023 9:09 PM CDT 100 mg ferrous sulfate tablet 325 mg 325 mg, Oral, DAILY WITH BREAKFAST, First dose on [place] 05/18/23 at 0800, Until Discontinued, Take with food. Do not take within 2 hours of other medications. $ Given 05/23/2023 9:04 AM CDT 325 mg $ Given 05/21/2023 8:14 AM CDT 325 mg $ Given 05/20/2023 7:45 AM CDT 325 mg furosemide (Lasix) injection 40 mg 40 mg, Intravenous, 2 TIMES DAILY, First dose on 05/18/23 at 0900, Until Discontinued $ Given 05/18/2023 9:28 AM CDT 40 mg furosemide (Lasix) injection 40 mg 40 mg, Intravenous, ONCE, 1 dose, On [place] 05/18/23 at 1330 $ Given 05/18/2023 2:37 PM CDT 40 mg furosemide (Lasix) injection 40 mg 40 mg, Intravenous, EVERY 8 HOURS, First dose (after last modification) on [facility] 05/19/23 at 1400, Until Discontinued $ Given 05/20/2023 12:04 PM CDT 40 mg $ Given 05/20/2023 5:14 AM CDT 40 mg $ Given 05/19/2023 10:36 PM CDT 40 mg furosemide (Lasix) injection 80 mg 80 mg, Intravenous, 2 TIMES DAILY, First dose (after last modification) on Fri05/18/23 at 1800, Until Discontinued $ Given 05/19/2023 2:00 PM CDT 80 mg $ Given 05/18/2023 6:44 PM CDT 80 mg gabapentin (Neurontin) capsule 100 mg 100 mg, Oral, 3 TIMES DAILY, First dose on Fri05/18/23 at 0900, Until Discontinued $ Given 05/21/2023 12:12 PM CDT 100 mg $ Given 05/21/2023 8:14 AM CDT 100 mg $ Given 05/20/2023 12:03 PM CDT 100 mg glucagon (Glucagen) injection 1 mg 1 mg, Subcutaneous, PRN, Bedside Glucose less than 70 mg/dL - If NOT able to eat and/or NPO and withOUT IV Access, Starting on Fri05/18/23 at 0313, Until Fri05/23/23 at 1953, If NOT able to eat and/or NPO [...] does not have swallowing difficulties, Starting on Fri05/18/23 at 0313, Until Fri05/23/23 at 1953, If able to eat and can swallow [...] does not have swallowing difficulties, Starting on 05/18/23 at 0313, Until Fri05/23/23 at 195, If able to eat and is better [...] does not have swallowing difficulties, Starting on 05/18/23 at 0313, Until Fri05/23/23 at 1954, If able to eat and does not [...] Subcutaneous, EVERY 8 HOURS, First dose on Fri05/18/23 at 0600, Until Discontinued $ Given 05/19/2023 5:17 AM CDT 7,500 Units Abdominal Tissue $ Given 05/18/2023 8:58 PM CDT 7,500 Units A bdominal Tissue $ Given 05/18/2023 2:46 PM CDT 7,500 Units A bdominal Tissue insulin lispro (HumaLOG;ADMelog) 100 UNIT/ML pen 0-6 Units 0-6 Units, Subcutaneous, 3 TIMES DAILY WITH MEALS, First dose on Fri05/18/23 at 0800, Until Discontinued, DO NOT HOLD CORRECTION BOLUS EVEN IF PATIENT IS NPO. If patient is eating meals and has orders for Mealtime Insulin Bolus, combine and give at the same time. BEDSIDE GLUCOSE MUST BE PERFORMED AND DOCUMENTED WITHIN 30-60 MINUTES OF CORRECTION INSULIN ADMINISTRATION. BG (mg/dL) LESS than 70 = follow Hypoglycemic guidelines 150-200 = give 1 unit 201-250 = give 2 units, 251-300 = give 3 units 301-350 = give 4 units 351-400 = give 5 units and notify physician GREATER than 400 = give 6 units and notify physician iopamidol (Isovue 370) 76 % contrast Intravenous, CONTRAST ONCE, Starting on Fri05/18/23 at 0032, Until Fri05/20/23 at 0031 $ Given - Contrast 05/18/2023 12:47 AM CDT 125 mL lisinopril (Prinivil; Zestril) tablet 10 mg 10 mg, Oral, DAILY, First dose on Fri05/19/23 at 1145, Until Discontinued $ Given 05/23/2023 9:04 AM CDT 10 mg $ Given 05/22/2023 11:53 AM CDT 10 mg $ Given 05/21/2023 8:14 AM CDT 10 mg metroNIDAZOLE (Flagyl) tablet 500 mg 500 mg, Oral, EVERY 8 HOURS, 63 doses, First dose on 05/18/23 at 0600, Last dose on 06/07/23 at 2200, May take with food or milk., Indication for anti-infective therapy: Documented infection, Site of anti-infective therapy: Bone/Joint $ Given 05/23/2023 6:01 PM CDT 500 mg $ Given 05/22/2023 9:08 PM CDT 500 mg $ Given 05/22/2023 5:39 AM CDT 500 mg ondansetron (disintegrating) (Zofran ODT) tablet 4 mg 4 mg, Oral, EVERY 6 HOURS PRN, Nausea/Vomiting, Starting on Fri05/23/23 at 1202, Until Fri05/23/23 at 1954, Dissolved orally on tongue Dissolved orally on tongue $ Given 05/23/2023 5:55 PM CDT 4 mg vancomycin (Vancocin) 750 mg in 0.9% NaCl IV 250 mL IVPB 750 mg, at 333.33 mL/hr, Intravenous, DAILY, First dose on Fri05/18/23 at 0900, Until Discontinued, Indication for anti-infective therapy: Documented infection, Site of anti-infective therapy: Bone/Joint $ New Bag/Syringe 05/22/2023 6:23 AM CDT 750 mg 333.33 mL/hr $ New Bag/Syringe 05/21/2023 6:15 AM CDT 750 mg 333.33 mL/hr $ New Bag/Syringe 05/20/2023 6:01 AM CDT 750 mg 333.33 mL/hr documented in this encounter Active and Recently Administered Medications Times are shown in CDT. Scheduled Medication Order 05/21/2023 05/22/2023 05/23/2023 0.9% NaCl injection 3 mL(Linked Group 1) 3 mL, Intracatheter, EVERY 8 HOURS, First dose on Fri05/18/23 at 0600, Until Discontinued, Flush peripheral IV catheter with 3 mL of normal saline every 8 hours. 0521 ($ Given - Provider: Roney Webster)1213 ($ Given - Provider: Darby Pate RN)2106 ($ Given - Provider: Roney Webster) 0539 ($ Given - Provider: Roney Webster)1345 (Not Administered - Provider: Melina Colorado RN - Reason: Refused-Patient)2110 ($ Given - Provider: Skyler Kendrick RN) 0558 (Not Administered - Provider: Skyler Kendrick RN - Reason: Loss of Access)1602 (Not Administered - Provider: Stacy Neri RN - Reason: Loss of Access - Comment: patient being discharged) apixaban (Eliquis) tablet 10 mg(Linked Group 2) 10 mg, Oral, 2 TIMES DAILY, 14 doses, First dose on Fri05/19/23 at 1200, Last dose on Fri05/25/23 at 2100 0814 ($ Given - Provider: Darby Pate RN)2106 ($ Given - Provider: Roney Webster) 1153 ($ Given - Provider: Melina Colorado RN - Comment: pt refusing untilisabel 11, aware)2108 ($ Given - Provider: Skyler Kendrick RN) 0905 ($ Given - Provider: Stacy Neri RN) apixaban (Eliquis) tablet 5 mg(Linked Group 2) 5 mg, Oral, 2 TIMES DAILY, First dose on Fri05/26/23 at 0900, Until Discontinued carvedilol (Coreg) tablet 12.5 mg 12.5 mg, Oral, 2 TIMES DAILY WITH MEALS, First dose on Fri05/18/23 at 0800, Until Discontinued, Take with food 0814 ($ Given - Provider: Darby Pate RN)1610 ($ Given - Provider: Darby Pate RN) 1154 ($ Given - Provider: Melina Colorado RN - Comment: pt refusing untill 11, md aware)1728 ($ Given - Provider: Melina Colorado RN) 0905 ($ Given - Provider: Stacy Neri, RN)1800 ($ Given - Provider: Stayc Neri, JIMMIE) cefTRIAXone (Rocephin) 2,000 mg in 0.9% NaCl IV 50 mL IVPB (CANCELED) 2,000 mg, at 100 mL/hr, Intravenous, EVERY 24 HOURS, First dose (after last modification) on [place] 05/18/23 at 0600, Until Discontinued, Ceftriaxone can cause precipitation when administered with calcium-containing fluids, including LR. Flush lines with a compatible fluid, such as D5W or NS before and after ceftriaxone dose. Admin through separate lumens is acceptable. , Indication for anti-infective therapy: Documented infection, Site of anti-infective therapy: Bone/Joint 0531 ($ New Bag/Syringe - Provider: Roney Webster Nurse)0600 (Stopped - Provider: Ginny Amaro) 0539 ($ New Bag/Syringe - Provider: Roney Webster Nurse)0621 (Stopped - Provider: Ginny Amaro) ciprofloxacin (Cipro) tablet 750 mg 750 mg, Oral, EVERY 12 HOURS, 33 doses, First dose (after last modification) on [facility] 05/22/23 at 2100, Last dose on [facility] 06/07/23 at 2100, Take with or without food. Take at least 2 hours before or 6 hours after sucralfate, metal cations such as iron, multivitamins with zinc, antacids containing aluminum, magnesium, or didanosine buffered tablets or powder for oral solution. Do not take with milk, yogurt, or calcium-fortified juice. , Indication for anti-infective therapy: Documented infection, Site of anti-infective therapy: Skin/soft tissue 2108 ($ Given - Provider: Skyler Kendrick RN) 0903 ($ Given - Provider: Stacy Neri, JIMMIE) doxycycline monohydrate capsule 100 mg 100 mg, Oral, EVERY 12 HOURS, 33 doses, First dose (after last modification) on [facility] 05/22/23 at 2100, Last dose on [facility] 06/07/23 at 2100, Administer at least 2 hours before or 4 hours after antacids, sucralfate, metals (eg, iron, zinc), multivitamin preparations, tube feeds Administer with 8 oz of water to prevent localized caustic injury. Flush thoroughly with water if administered by enteral tube., Indication for anti-infective therapy: Documented infection, Site of anti-infective therapy: Skin/soft tissue 2108 ($ Given - Provider: Skyler Kendrick RN) 09 ($ Given - Provider: Stacy Neri, JIMMIE) ferrous sulfate tablet 325 mg 325 mg, Oral, DAILY WITH BREAKFAST, First dose on 05/18/23 at 0800, Until Discontinued, Take with food. Do not take within 2 hours of other medications. 0814 ($ Given - Provider: Darby Pate RN) 1154 (Not Administered - Provider: Melina Colorado RN - Reason: Refused-Patient - Comment: pt refusing untilisabel 11, aware) 0904 ($ Given - Provider: Stacy Neri RN) gabapentin (Neurontin) capsule 100 mg 100 mg, Oral, 3 TIMES DAILY, First dose on 05/18/23 at 0900, Until Discontinued 0814 ($ Given - Provider: Darby Pate RN)1212 ($ Given - Provider: Darby Pate RN)2113 (Not Administered - Provider: Alfonzo Downey Graduate Nurse - Reason: Refused-Patient) 1154 (Not Administered - Provider: Melina Colorado RN - Reason: Refused-Patient - Comment: pt refusing untilisabel 11, aware)1330 (Not Administered - Provider: Melina Colorado RN - Reason: Refused-Patient)2108 (Not Administered - Provider: Skyler Kendrick RN - Reason: Refused-Parent/Guardi an - Comment: patient educated) 09 (Not Administered - Provider: Stacy Neri RN - Reason: Refused-Patient)1503 (Not Administered - Provider: Stacy Neri RN - Reason: Refused-Patient) insulin lispro (HumaLOG;ADMelog) 100 UNIT/ML pen 0-6 Units 0-6 Units, Subcutaneous, 3 TIMES DAILY WITH MEALS, First dose on 05/18/23 at 0800, Until Discontinued, DO NOT HOLD CORRECTION BOLUS EVEN IF PATIENT IS NPO. If patient is eating meals and has orders for Mealtime Insulin Bolus, combine and give at the same time. BEDSIDE GLUCOSE MUST BE PERFORMED AND DOCUMENTED WITHIN 30-60 MINUTES OF CORRECTION INSULIN ADMINISTRATION. BG (mg/dL) LESS than 70 = follow Hypoglycemic guidelines 150-200 = give 1 unit 201-250 = give 2 units, 251-300 = give 3 units 301-350 = give 4 units 351-400 = give 5 units and notify physician GREATER than 400 = give 6 units and notify physician 0847 (Not Administered - Provider: Darby Pate RN - Reason: Per Administration Instructions)1200 (Not Administered - Provider: Darby Pate RN - Reason: Per Administration Instructions)1716 (Not Administered - Provider: Darby Pate RN - Reason: Per Administration Instructions) 0800 (Not Administered - Provider: Melina Colorado RN - Reason: Per Administration Instructions)1156 (Not Administered - Provider: Melina Colorado RN - Reason: Per Administration Instructions)1712 (Not Administered - Provider: Melina Colorado RN - Reason: Per Administration Instructions) 0906 (Not Administered - Provider: Stacy Neri RN - Reason: Refused-Patient)1109 (Not Administered - Provider: Stacy Neri RN - Reason: Per Administration Instructions)1803 (Not Administered - Provider: Stacy Neri RN - Reason: Per Administration Instructions) lisinopril (Prinivil; Zestril) tablet 10 mg 10 mg, Oral, DAILY, First dose on 05/19/23 at 1145, Until Discontinued 0814 ($ Given - Provider: Darby Pate RN) 1153 ($ Given - Provider: Melina Colorado RN - Comment: pt refusing untill 11, md aware) 0904 ($ Given - Provider: Stacy Neri RN) metroNIDAZOLE (Flagyl) tablet 500 mg 500 mg, Oral, EVERY 8 HOURS, 63 doses, First dose on 05/18/23 at 0600, Last dose on 06/07/23 at 2200, May take with food or milk., Indication for anti-infective therapy: Documented infection, Site of anti-infective therapy: Bone/Joint 0520 ($ Given - Provider: Roney Webster Nurse)1212 ($ Given - Provider: Darby Pate RN)2106 ($ Given - Provider: Averiaunna Shayan, Graduate Nurse) 0539 ($ Given - Provider: Roney Webster)1345 (Not Administered - Provider: Melina Colorado RN - Reason: Refused-Patient)2108 ($ Given - Provider: Skyler Kendrick RN) 0558 (Not Administered - Provider: Skyler Kendrick RN - Reason: Refused-Parent/Guardi an - Comment: patient educated)1801 ($ Given - Provider: Stacy Neri RN) vancomycin (Vancocin) 750 mg in 0.9% NaCl IV 250 mL IVPB (CANCELED) 750 mg, at 333.33 mL/hr, Intravenous, DAILY, First dose on Fri05/18/23 at 0900, Until Discontinued, Indication for anti-infective therapy: Documented infection, Site of anti-infective therapy: Bone/Joint 0615 ($ New Bag/Syringe - Provider: Roney Webster)0716 (Stopped - Provider: Ginny Amaro) 0623 ($ New Bag/Syringe - Provider: Ginny Amaro)0730 (Stopped - Provider: Nohemi Ortiz RN) PRN Medication Order 05/21/2023 05/22/2023 05/23/2023 0.9% NaCl injection 1-10 mL(Linked Group 1) 1-10 mL, Intracatheter, PRN, Other, peripheral line flush, Starting on Fri05/18/23 at 0239, Until Fri05/23/23 at 1954, Flush peripheral IV catheter with 1-10 mL of normal saline before and after medications and prn to clear blood from the line or to verify patency. dextrose 10 % IV bolus(Linked Group 3) 12.5 g, at 468.75 mL/hr, Intravenous, PRN, Other, Bedside Glucose less than 70 mg/dL -If NOT able to eat and/or NPO and with IV Access, Starting on Fri05/18/23 at 0313, Until Fri05/23/23 at 1954, If NOT able to eat and/or NPO [...] NPO and with IV Access, Starting on Fri05/18/23 at 0313, Until Fri05/23/23 at 1953, If NOT able to eat and/or NPO [...] NPO and withOUT IV Access, Starting on Fri05/18/23 at 0313, Until Fri05/23/23 at 1953, If NOT able to eat and/or NPO [...] does not have swallowing difficulties, Starting on Fri05/18/23 at 0313, Until Fri05/23/23 at 1953, If able to eat and can swallow [...] does not have swallowing difficulties, Starting on 05/18/23 at 0313, Until Fri05/23/23 at 1954, If able to eat and is better [...] does not have swallowing difficulties, Starting on Fri05/18/23 at 0313, Until Fri05/23/23 at 1953, If able to eat and does not [...] Oral, AT BEDTIME PRN, Insomnia, Starting on Fri05/18/23 at 0310, Until Fri05/23/23 at 1953 ondansetron (disintegrating) (Zofran ODT) tablet 4 mg 4 mg, Oral, EVERY 6 HOURS PRN, Nausea/Vomiting, Starting on Fri05/23/23 at 1202, Until Fri05/23/23 at 1953, Dissolved orally on tongue Dissolved orally on tongue 1755 ($ Given - Prov ider: Stacy Neri RN) Linked Groups Order Group 1: SALINE LOCK, INSERT AND MAINTAIN (CANCELED) Routine, CONTINUOUS, Starting on Fri05/18/23 at 0245, Until Specified, New collection And 0.9% NaCl injection 3 mLJump to med 3 mL, Intracatheter, EVERY 8 HOURS, First dose on Fri05/18/23 at 0600, Until Discontinued, Flush peripheral IV catheter with 3 mL of normal saline every 8 hours. And 0.9% NaCl injection 1-10 mLJump to med 1-10 mL, Intracatheter, PRN, Other, peripheral line flush, Starting on Fri05/18/23 at 0239, Until Fri05/23/23 at 1954, Flush peripheral IV catheter with 1-10 mL of normal saline before and after medications and prn to clear blood from the line or to verify patency. Group 2: apixaban (Eliquis) tablet 10 mgJump to med 10 mg, Oral, 2 TIMES DAILY, 14 doses, First dose on Fri05/19/23 at 1200, Last dose on Fri05/25/23 at 2100 Followed by apixaban (Eliquis) tablet 5 mgJump to med 5 mg, Oral, 2 TIMES DAILY, First dose on Fri05/26/23 at 0900, Until Discontinued Group 3: dextrose 10 % IV bolusJump to med 12.5 g, at 468.75 mL/hr, Intravenous, PRN, Other, Bedside Glucose less than 70 mg/dL -If NOT able to eat and/or NPO and with IV Access, Starting on Fri05/18/23 at 0313, Until Fri05/23/23 at 195, If NOT able to eat and/or NPO [...] NPO and with IV Access, Starting on Fri05/18/23 at 0313, Until Fri05/23/23 at 1954, If NOT able to eat and/or NPO [...]
--- OUTSIDE RECORDS SUMMARY | 2024-11-17 03:03 | XMS_ITS | Encounter Summary ---
Author Organization [facility] Address [address] [place] [address] Care Team Providers Care Animal Therapist Name Role Phone Unavailable Primary Care Provider Unavailabl e Reason for Visit * Reason Comments WOUND INFECTION Pt presents with c/o blisters/sores to right foot which is draining clear drainage with foul odor for 1 week. Pedal pulse present. Strong odor present. See media for images. * Auth/Cert (Routine) Specialty Diagnoses / Procedures Referred By Jany martinez Referred To Contact Referral ID Status Reason Start Date Expiration Date Visits Re quested Visits Authorized [id number] 1 1 Encounter Details Date Type Department Care Team (Late st Contact Info) Description 12/02/2022 6:58 PM PRODUCTION GRIP - 12/12/2022 12:55 PM PRODUCTION GRIP Hospital Encounter SL 6N ACUTE [address] [place] [id number] Himanshu Espino MD [address] [facility] DIV [place] [id number] Graeme Rodgers MD [address] [facility] 2L [place] [address] Tommie Echevarria MD [address] [facility] 2L DIV OF PULM/[place] [address] [place] [address] [place], [place] [id number] Rafa Patel MD [address] [place] [address] Branden Galindo MD [address] [place], [place] [id number] Amanda Georges MD [address] [place], [place] [id number] Vascular Services Discharge Disposition: Rehab:Inpatient Social History Tobacco Use Types Packs/Day Years [...] and heating? Not hard at all 12/03/2022 [facility] [...] in a nursing home (including now)? No 12/03/2022 Sex and Gender Information Value Date Recorded Sex Assigned at Not on file Gender Identity Not on file Sexual Orientation Not on file documented as of this encounter Last Filed Vital Signs Vital Sign Reading Time Taken Comments Blood Pressure 153/83 12/12/2022 8:51 AM PRODUCTION GRIP Pulse 87 12/12/2022 8:51 AM PRODUCTION GRIP Temperature 36.7 ??C (98 ??F) 12/12/2022 8:51 AM PRODUCTION GRIP Respiratory Rate 18 12/12/2022 8:51 AM PRODUCTION GRIP Oxygen Saturation 87% 12/12/2022 8:51 AM PRODUCTION GRIP Inhaled Oxygen Concentration - - Weight 140.6 kg (310 lb) 12/12/2022 3:35 AM PRODUCTION GRIP Height 170.2 cm (5' 7 ) 12/02/2022 5:31 PM PRODUCTION GRIP Body Mass Index 48.55 12/02/2022 5:31 PM PRODUCTION GRIP documented in this encounter Functional Status Functional [...] No 12/03/2022 documented as of this encounter Discharge Summaries * Rosi Menard V., MARKETING AND PROMOTIONS MANAGER-PLATFORM SOFTWARE ENGINEER - 12/12/2022 8:09 AM CST Hospital Discharge Summary Patient ID: Leeroy Canales [id number] 32 year old 1990 Admit date: 12/02/2022 Discharge date: 12/12/2022 Admitting Physician: Tommie Echevarria MD Discharge Physician: José Manuel Patel MD Present on Admission: ??? Bacteremia due to Gram-positive bacteria Discharge Diagnoses: Necrotizing fasciitis, wet gangrene of the left foot, s/p L AKA, BOBBY ( improving), Urinary retension ( resolved), HTN, HFpEF, DM type 2, depression Admission Condition: poor Discharged Condition: stable Indication for Admission: wet gangrene, bacteremia Hospital Course: Leeroy Canales is a 32 year old female with past medical history of DM 2, HTN, HFpEF, morbid obesity, MDD , who presented to [facility] on 12/02/2022 for large wound to the left foot. Patient fell in the shower 2 weeks prior to the admission and sustained a small injury on the left foot.Developed progressive blistering skin sloughing and foul discharge to the side. ?? In ER- patient was afebrile BP 151 /108. Labs show creatinine 2.95, alk-phos 315, white blood cell count 42,000, esr >130, bnp- 551. X-ray revealed subcutaneous gas formation concern for necrotizing fasciitis. Vascular consulted, patient's underwent emergent left ankle disarticulation. Patient's stated IV vanc/ safety/clindamycin. Blood cultures from 12/02 positive for GPC/ GPB, pending speciation. Wound culture positive for Proteus mirabilis and Streptococcus agalactiae. Antibiotics deescalated to IV cefepime to oral Augmentin ( EOT 12/14/2022). Patient was transferred to ICU following ankle disarticulation for bacteremia. Patient was transferred to the floor on 12/04. Patient's underwent left AKA per IP vascular surgery on 12/05 ??Patient had a Fortune for 2 days 2/2 urinary retention ( resolved). Patient was discharged to [facility] on 12/12/2022 in stable condition Consults: ID, Psychiatry, Vascular surgery, conservation educator, nutrition Pending Labs and Studies: none Discharge Communication: Patient's hospital course was conveyed to mother yesterday Significant Diagnostic Studies: CBC: reviewed Recent Labs Lab Units 12/12/22 0144 12/11/22 0020 12/10/22 0036 WBC 10??3/uL 12.9* 12.5* 15.1* RBC 10??6/uL 3.29* 3.74* 3.49* HGB g/dL 7.5* 8.4* 8.0* HCT % 25.4* 30.2* 26.9* BMP: Recent Labs Lab Units 12/12/22 0144 12/11/22 0020 12/10/22 0036 NA mmol/L 145 144 147* CL mmol/L 109* 109* 112* CO2 mmol/L 27 25 26 BUN mg/dL 19 19 20 CREATININE mg/dL 1.12* 1.38* 1.46* CALCIUM mg/dL 7.4* 8.0* 7.9* Magnesium: No results for input(s): MG in the last 168 hours. Phosphorus: No results for input(s): PHOS in the last 168 hours. Coagulation: No results for input(s): PT, INR, APTT in the last 168 hours. Endocrine: No results for input(s): TSH, A1C in the last 168 hours. LFTs: No results for input(s): AST, ALT, TBILI, DBILI, IBILI, ALB, GGT, TP in the last 168 hours. Invalid input(s): ALP No results found. Discharge Exam: Blood pressure 153/83, pulse 87, temperature 98 ??F (36.7 ??C), resp. rate 18, height 1.702 m (5' 7 ), weight (!) 140.6 kg (310 lb), last menstrual period 08/08/2022, SpO2 (!) 87 %, not currently . GEN: in NAD CHEST: Clear to auscultation bilaterally HEART: Regular rate and rhythm, Nl S1 and S2 No gallops. GI: Abdomen soft and non tender, non-distended, +BS EXT: + 2 pitting edema present b/l LE, Left AKA covered in dressing PSYCH: Alert and oriented to person place time and situation. Good mood, appropriate affect. Disposition: [facility] facility Patient Instructions: Medication List START taking these medications acetaminophen 500 MG tablet Commonly known as: Tylenol Take 1 (one) tablet by mouth every 6 hours Maximum allowable Acetaminophen amount = 4 Grams (4000 mg) / 24 hours. Alcohol Prep 70 % USE ONE SWAB TO CLEAN SKIN FOUR TIMES DAILY BEFORE TESTING amoxicillin-clavulanate 875-125 MG tablet Commonly known as: Augmentin Take 1 (one) tablet by mouth 2 times daily FeroSul 325 (65 FE) MG tablet Generic drug: ferrous sulfate nystatin 908522 UNIT/GM powder Commonly known as: Mycostatin Apply [...] (one) tablet by mouth daily with breakfast CHANGE how you take these medications furosemide 40 MG tablet Commonly known as: Lasix Take 1 (one) tablet by mouth 2 times daily What changed: ?? medication strength ?? how much to take ?? when to take this CONTINUE taking these medications amLODIPine 10 MG tablet Commonly known as: Norvasc Take 1 (one) tablet by mouth once daily carvedilol 12.5 MG tablet Commonly known as: Coreg Take 1 (one) tablet by mouth 2 times daily with morning and evening meal insulin glargine vial Commonly known as: Lantus insulin lispro 100 UNIT/ML vial Commonly known as: HumaLOG STOP taking these medications FLUoxetine 20 MG capsule Commonly known as: PROzac Where to Get Your Medications These medications were sent to [facility] [address] [facility] [address] [address] [facility] [address] ?? Alcohol Prep 70 % ?? ONETOUCH DELICA PLUS 33G EXTRA FINE LANCET ?? OneTouch Verio Reflect w/Device Kit ?? OneTouch Verio test strip You can get these medications from any pharmacy You don't need a prescription for these medications ?? acetaminophen 500 MG tablet Information about where to get these medications is not yet available Ask your nurse or doctor about these medications ?? amLODIPine 10 MG tablet ?? amoxicillin-clavulanate 875-125 MG tablet ?? carvedilol 12.5 MG tablet ?? furosemide 40 MG tablet ?? nystatin 286391 UNIT/GM powder ?? potassium chloride ER 20 MEQ tablet Follow-up Information Graeme Rodgers MD . Specialty: Vascular Surgery Contact information: [address] 2[address] DIV OF VASCULAR SURGERY [facility] [address] Graeme Rodgers MD . Specialty: Vascular Surgery Contact information: [address] 2[address] DIV OF VASCULAR SURGERY [facility] [address] Follow up with provider . Follow up with provider . Discharge Instructions Leeroy Canales, HOSPITAL COURSE: You were admitted for left non -healing foot wound, found to have diabetic wet gangrene. You were treated with initially with left ankle disarticulation, with cultures grows group B strept, proteus mirabilis on 12/02/2022 with subsequent Left above knee amputation on 12/2022 with wound vac were placed and removed on 12/08. You were originally treated with IV antibiotics, which switched to oral antibiotics ( Augmentin 875 mg po bid for 7 days) with end of treatment on 12/14/2022. During hospital stay your kidney function had some injury, which slowly improving with IV and lateroral diuretics. You were discharged to the rehabilitation facility on 12/12/2022 If you need to call [facility] for any reason, you may reach us at [phone] and dial 0 for the tubing mill operator. PROBLEM LIST: Patient Active Problem List: Type II or unspecified type diabetes mellitus without mention of complication, not stated as uncontrolled (CMS/HCC) Intentional overdose of drug in tablet form ([facility]) Severe recurrent major 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 psychotic features (CMS/HCC) PTSD (post-traumatic stress disorder) CHF (congestive heart failure) (CMS/HCC) Left foot infection Hypoxia Essential hypertension Swelling of left foot Bacteremia due to Gram-positive bacteria INSTRUCTIONS: CONCERNING SYMPTOMS: When to call your healthcare provider: Call your healthcare provider immediately if you have any of the following: - Fever of 100.4??F (38??C) or higher - Shaking chills - Intractable nausea and vomiting - Severe headache - Confusion/altered mental status - Seizures (convulsions) - Weakness in arms/legs - Dizziness If you are unable to reach your primary provider, please go to the nearest emergency room or call EMS (911). FOLLOW-UP: Patient will follow in vascular surgery / 1:15 PM Graeme Rodgers MD [facility] 2L [phone] [facility] S It is essential that you keep all of your follow-up appointments and go to your doctors appointments as scheduled. If a follow-up with your primary care provider has not been scheduled, you need to schedule an appointment tofollow-up on your hospitalization. If there is a conflict, please call the clinic ahead of time and reschedule the appointment. Thanks! Internal Medicine Department [facility] [address] [place] [address] If you develop symptoms of increased sadness, poor sleeping, anger or anxiety, talk with your primary care doctor. You can consider therapy as well. It is not uncommon for people to develop PTSD following a major medical illness. 1. [facility] a. New group reservations coordinator: tel:[phone] b. They offer outpatient and intensive outpatient programs c. Website: https://Peakos/rgwxfvou-kht-enbjvpgh/eyvprovmzdl-zzjzyeuj-eeqsdkx-program/ 2. [facility] a. [facility] charges on a sliding fee scale based on gross household annualincome and the type of evaluation you are seeking. Fees for assessments vary according to the amount of time and expertise the assessment requires. We require a $50 retainer for all assessments before we set an appointment. Fees are provided during the intake before you begin the assessment. b. Counseling and psychotherapy: $10 to $65 c. [facility] is not eligible for Medicaid or Medicare. They can provide youa receipt to submit to your insurance carrier. d. Phone number: [phone]. The party plan sales host/hostess will ask you for your contact information and then one of our intake staff, a graduate trainee, will call you for a 20-30 minute telephone interview. 3. [facility] a. Individual, couples, and family counseling. Therapy is provided by doctoral and masters-level students currently in the Medical Family Therapy Program at [facility]. All therapists aresupervised by faculty who are licensed professionals. b. Location: [address] [place] [address], [address], [place] [address] c. Phone number: [phone] d. Email: [email or web address] e. Website: https://www.[facility]/medicine/family-medicine/pxfjql-enyabhfxtg-kungui-therapy/in dex.php f. Cost: sliding scale fee 4. [facility] offers CBT a. 5. [facility] a. [address] [place] [address] b. Office: [phone] 6. [facility] [employer] [facility] a. Educents [address] [facility] [place] [address] ? fax [address] [facility], [address]?[place] [address]? To see who accepts your insurance, you can go to Qwilr and search based on your insurance and type of therapy. You can email people directly on this site. Other resources: ??? For classes and group therapy: https://MonkeyFind/kxlbirm-gqj-fakra-therapy/ o Takes insurance or roman ??? Books and workbooks o Free online: https://www.Cell Genesyst.nhs.uk/media/8466/wzxsgmmir-jpwg-vye-vtzbfazy-bciyukk-4990.pdf o https://www.Polarizonics/Piyhgsnop-Vowssrysua-Qxygtak-Boimqu-Rlfgntjd-Evyhkmm/dp/1 429198369 o Cognitive Behavior Therapy, Second Edition: Basics and Beyond - Eugenia Farley and Robbi Farley ??? CBT Phone apps: o CBT Thought Diary: 30 dollars a year - Description: Journal with intention and purpose using CBT Thought Diary. It utilizes CBT-based tools to help you improve your mood, reflect on positive and negative thoughts, practice gratitude, and evaluate your state of mind. In addition to being a traditional journal, you can also record your voice to listen back to later. o What's Up: Free - Description:a diary section, habit trackers, catastrophe scale, grounding games, forums, breathing techniques, and inspirational quotes o Woebot: CBT fabien to learn about thought distortions and relationships between thoughts, emotion and behavior. ??? Breathing and meditation phone apps: These are helpful to incorporate meditation and mindfulness into your day. It is helpful to focus on controlling breathing in order to regulate physical symptoms of anxiety and improve groundedness. Mindfulness has been shown to improve stress levels, symptoms of anxiety and depression. o Calm o Breath o Headspace Signed: CARLOS Ron 12/12/2022 Time spent on discharge: 45 minutes. Time was spent on preparation of discharge records, prescriptions, counseling patient, working withsocial work and nursing, discussing with family. UCTION GRIP documented in this encounter Discharge Instructions * Discharge Instructions* Rosi Menard V., CARLOS - 12/08/2022 3:33 PM PRODUCTION GRIP eLeroy Canales, HOSPITAL COURSE: You were admitted for left non -healing foot wound, found to have diabetic wet gangrene. You were treated with initially with left ankle disarticulation, with cultures grows group B strept, proteus mirabilis on 12/02/2022 with subsequent Left above knee amputation on 12/2022 with wound vac were placed and removed on 12/08. You were originally treated with IV antibiotics, which switched to oral antibiotics ( Augmentin 875 mg po bid for 7 days) with end of treatment on 12/14/2022. During hospital stay your kidney function had some injury, which slowly improving with IV and lateroral diuretics. You were discharged to the rehabilitation facility on 12/12/2022 If you need to call [facility] for any reason, you may reach us at [phone] and dial 0 for the tubing mill operator. PROBLEM LIST: Patient Active Problem List: Type II or unspecified type diabetes mellitus without mention of complication, not stated as uncontrolled (CMS/HCC) Intentional overdose of drug in tablet form (CMS/HCC) Severe recurrent major 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 psychotic features (CMS/HCC) PTSD (post-traumatic stress disorder) CHF (congestive heart failure) (CMS/HCC) Left foot infection Hypoxia Essential hypertension Swelling of left foot Bacteremia due to Gram-positive bacteria INSTRUCTIONS: CONCERNING SYMPTOMS: When to call your healthcare provider: Call your healthcare provider immediately if you have any of the following: - Fever of 100.4??F (38??C) or higher - Shaking chills - Intractable nausea and vomiting - Severe headache - Confusion/altered mental status - Seizures (convulsions) - Weakness in arms/legs - Dizziness If you are unable to reach your primary provider, please go to the nearest emergency room or call EMS (101). FOLLOW-UP: Patient will follow in vascular surgery / 1:15 PM Graeme Rodgers MD [facility] 2L [id number] [facility] [place] It is essential that you keep all of your follow-up appointments and go to your doctors appointments as scheduled. If a follow-up with your primary care provider has not been scheduled, you need to schedule an appointment tofollow-up on your hospitalization. If there is a conflict, please call the clinic ahead of time and reschedule the appointment. Thanks! Internal Medicine Department [address] [id number] If you develop symptoms of increased sadness, poor sleeping, anger or anxiety, talk with your primary care doctor. You can consider therapy as well. It is not uncommon for people to develop PTSD following a major medical illness. [facility] New group reservations coordinator: tel:[phone] They offer outpatient and intensive outpatient programs Website: https://Peakos/vicknavf-tga-atowjicm/jmbozmzwivj-owhrjpcy-igmrwam-program/ [facility] charges on a sliding fee scale based on gross household annual income and the type of evaluation you are seeking. Fees for assessments vary according to the amount of time and expertise the assessment requires. We require a $50 retainer for all assessments before we set an appointment. Fees are provided during the intake before you begin the assessment. Counseling and psychotherapy: $10 to $65 [facility] is not eligible for Medicaid or Medicare. They can provide you a receipt to submit to your insurance carrier. Phone number: [phone]. The party plan sales host/hostess will ask you for your contact information and then oneof our intake staff, a graduate trainee, will call you for a 20-30 minute telephone interview. [facility] Individual, couples, and family counseling. Therapy is provided by doctoral and masters-level students currently in the Medical Family Therapy Program at [facility]. All therapists are supervised by faculty who are licensed professionals. Location: [address] [place] [address] [address], [address], [place] [address] Phone number: [phone] Email: [email or web address] Website: https://www.[facility]/medicine/family-medicine/pvpoce-qqspeilgmw-qfbjgb-therapy/in dex.php Cost: sliding scale fee [facility] offers CBT [address] [address] Office: [phone] [facility] [address] [facility] [place] [address] ? fax [address] [facility], [address]?[place] [address]? To see who accepts your insurance, you can go to Qwilr and search based on your insurance and type of therapy. You can email people directly on this site. Other resources: For classes and group therapy: https://MonkeyFind/dbehbgm-feg-prnma-therapy/ Takes insurance or roman Books and workbooks Free online: https://www.Cell Genesyst.nhs.uk/media/7687/hoydillbo-hvls-ede-ozwsnglx-mtylzym-4424.pdf https://www.Polarizonics/Jzcpakclq-Qinjmbjpvf-Qpyjdcm-Xwxdig-Zdlyjcxq-Woatzcz/dp/1 656162373 Cognitive Behavior Therapy, Second Edition: Basics and Beyond - Eugenia Farley and Robbi Farley CBT Phone apps: CBT Thought Diary: 30 dollars a year Description: Journal with intention and purpose using CBT Thought Diary. It utilizes CBT-based tools to help you improve your mood, reflect on positive and negative thoughts, practice gratitude, and evaluate your state of mind. In addition to being a traditional journal, you can also record your voice to listen back to later. What's Up: Free Description:a diary section, habit trackers, catastrophe scale, grounding games, forums, breathing techniques, and inspirational quotes Woebot: CBT fabien to learn about thought distortions and relationships between thoughts, emotion and behavior. Breathing and meditation phone apps: These are helpful to incorporate meditation and mindfulness into your day. It is helpful to focus on controlling breathing in order to regulate physical symptoms of anxiety and improve groundedness. Mindfulness has been shown to improve stress levels, symptoms of anxiety and depression. Calm Breath Headspace UCTION GRIP documented in this encounter Medications at Time [...] tablet by mouth once daily 12/12/2022 05/23/2023 amoxicillin-clavulan ate (Augmentin) 875-125 MG tablet Take 1 (one) tablet by mouth 2 times daily 12/12/2022 05/09/2023 carvedilol (Coreg) 12.5 MG tablet Take 1 (one) tablet by mouth 2 times daily with morning and evening meal 12/12/2022 08/24/2024 FeroSul 325 (65 Fe) MG tablet Take 1 (one) tablet by mouth daily with breakfast 08/08/2022 09/01/2024 furosemide (Lasix) 40 MG tablet Take 1 (one) tablet by mouth 2 times daily 12/12/2022 05/09/2023 insulin glargine (Lantus/Semglee) 100 units/ml injection Inject 10 (ten) Units subcutaneously at bedtime 05/09/2023 insulin lispro (HumaLOG) 100 UNIT/ML vial Inject 5 (five) Units subcutaneously 3 times daily with meals 08/13/2022 05/09/2023 nystatin (Mycostatin) 095059 UNIT/GM powder Apply to affected area 3 times daily 12/12/2022 08/09/2024 potassium chloride ER (Klor-Con M) 20 MEQ tablet Take 1 (one) tablet by mouth daily with breakfast 12/12/2022 03/02/2024 documented as of this encounter Progress Notes * Ying Ferguson - 12/12/2022 12:55 PM CST This justowriter operator received a request from LORETTA Menard to schedule a follow up appointment with Endocrinology. The patient was called at [phone]. Per the patient, they will schedule their own follow up appointment. No further discharge scheduling needs at this time. Ying Ferguson 12/13/2022 UCTION GRIP * Charley Justice - 12/12/2022 12:20 PM CST [facility] Psychiatry Consult Progress Note Leeroy Canales Age: [age] year old Date of : 1990 On Date of Note: 12/12/2022 Hospital day: Hospital Day: 11 Reason for consult: psychiatric evaluation Identifier: Leeroy Canales is a 31-year-old F w/ significant PMHx of severe recurrent depression w/o psychotic features, PTSD, T2DM, HTN, HFpEF, morbid obesity who is currently admitted to the hospital for necrotizing fasciits and is now s/p left AKA. Subjective: Interval History: Chart review: No acute events over the last 24 hours. CIWA: No data found. Interview: On interview, Patient feels happy this AM and is still looking forward to going to PT to get stronger and learn to walk again. Denies SI/thoughts of self harm, depressive thoughts. Gets to go to rehab facility today. Scheduled Medications: ??? 0.9% NaCl 3 mL Intracatheter q8h ??? acetaminophen 500 mg Oral q6h ??? amLODIPine 10 mg Oral QDAY ??? amoxicillin-clavulanate 875 mg Oral BID ??? carvedilol 12.5 mg Oral BID WC ??? FLUoxetine 20 mg Oral QDAY ??? furosemide 40 mg Oral BID ??? heparin 7,500 Units Subcutaneous TID ??? insulin glargine 10 Units Subcutaneous AT BEDTIME ??? insulin aspart 0-12 Units Subcutaneous q4h ??? insulin aspart 5 Units Subcutaneous TID WC ??? nystatin Topical TID ??? potassium chloride 20 mEq Oral QDAY WITH BREAKFAST PRN Medications: 0.9% NaCl, 1-10 mL, PRN oxyCODONE (immediate release), 5 mg, q6h PRN Or oxyCODONE (immediate release), 10 mg, q6h PRN Objective: Examination: Vitals: 12/11/22 2047 12/11/22 2315 12/12/22 0335 12/12/22 0851 BP: 142/74 125/72 143/81 153/83 Pulse: 98 90 88 87 Resp: 19 18 17 18 Temp: 99 ??F (37.2 ??C) 97.3 ??F (36.3 ??C) 97.9 ??F (36.6 ??C) 98 ??F (36.7 ??C) SpO2: 95% 90% 93% (!) 87% Weight: (!) 140.6 kg (310 lb) Height: Mental Status Exam: APPEARANCE: young, Black, Female, well-groomed and wearing a hospital gown EYE CONTACT: good ATTITUDE: calm, cooperative, well-engaged, and pleasant SPEECH: coherent, articulate, spontaneous, with normal rate, rhythm, tone, prosody, and volume PSYCHOMOTOR: no psychomotor retardation or agitation MOOD: happy AFFECT: euthymic, full range, reactive, appropriate to content, and congruent with mood THOUGHT PROCESS: linear, logical, goal-directed, and organized with associations intact THOUGHT CONTENT: denied suicidal or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 input(s): SALICYLATE in the last 01918 hours. Radiology Impressions: No results found. EKG: Results for orders placed or performed during the hospital encounter of 12/02/22 EKG 12-LEAD Result Value Ref Range Ventricular Rate 77 BPM Atrial Rate 77 BPM P-R Interval 154 ms QRS Duration ms 88 ms Q-T Interval ms 416 ms QTC Calculation (Bezet) 470 ms Calculated P [place] 44 degrees Calculated R [place] 14 degrees Calculated T [place] 23 degrees Interpretation EKG NORMAL SINUS RHYTHM NORMAL ECG WHEN COMPARED WITH ECG OF 21-aug-2022 NO SIGNIFICANT CHANGE WAS FOUND Confirmed by HIRAL HIGGINS MD ([id number]) on 12/09/2022 1:25:51 PM Impression and Plan: Leeroy Canales is a 31-year-old F w/ significant PMHx of severe recurrent depressionw/o psychotic features, PTSD, T2DM, HTN, HFpEF, morbid obesity who is currently admitted to the hospital for necrotizing fasciits and is now s/p left AKA. This patient is being subject to a psychiatric evaluation for placement after difficult new medicalcondition (s/p AKA) in the context of a history of MDD w/ suicide attempt. She is exhibiting good coping skills, especially in light of recent medical trauma, and does not meet criteria for MDD. Currently denies SI/thoughts of self harm/not wanting to be alive. No psychiatric medication is indicated at this time. OP psychotherapy was offered to the patient, but she declined. Since patient has been through significant medical trauma, she remains at high riskfor PTSD and/or other mood dysregulation (i.e relapse of MDD). We educated her about signs to watchfor (depressed mood, sleep difficulties, nightmares, etc.) and instructed her to inform her PCP/other medical provider if she experienced any of them. The patient's protective factors include good support system (family), forward thinking (PT/learning to walk again, new job), and no current depressive symptoms/SI/thoughts of self harm. Other Diganoses: MDD, recurrent, in remission PTSD Treatment Plan : Psychiatric: 1. Patient will be provided with resources for OP psych at d/c 2. No psych medications indicated Medical: Defer to primary team. Issues include: T2DM HTN HFpEF Morbid obesity Left AKA Please refer to the resident note for further details. This note is for medical student documentation purposes only. Charley Justice Medical Student Year 4 12/11/2022 2:08 PM UCTION GRIP * Rosi Menard V., MARKETING AND PROMOTIONS MANAGER-PLATFORM SOFTWARE ENGINEER - 12/11/2022 9:30 AM CST Images from the original note were not included. Hospitalist Daily Progress Note Name: Leeroy Canales Age: [age] year old Room: 613/01 Date Admitted: 12/02/2022 Hospital Course: Leeroy Canales is a 32 year old female with past medical history of DM 2, HTN, HFpEF, morbid obesity, MDD , who presented to [facility] on 12/02/2022 for large wound to the left foot. Patient fell in the shower 2 weeks prior to the admission and sustained a small injury on the left foot. Developed progressive blistering skin sloughing and foul discharge to the side. In ER- patient was afebrile BP 151 /108. Labs show creatinine 2.95, alk-phos 315, white blood cell count 42,000, esr >130, bnp- 551. X-ray revealed subcutaneous gas formation concern for necrotizing fasciitis. Vascular consulted, patient's underwent emergent left ankle disarticulation. Patient's stated IV vanc/ safety/clindamycin. Blood cultures from 12/02 positive for GPC/ GPB, pending speciation. Wound culture positive for Proteus mirabilis and Streptococcus agalactiae. Antibiotics deescalated to IV cefepime to oral Augmentin . Patient was transferred to ICU following ankle disarticulation for bacteremia. Patient was transferred to the floor on 12/04. Patient's underwent left AKA per IP vascular surgery on 12/05 24H/S: No acute events overnights Pt seen and examined at bedside. Pt denied CP, SOB, N/V/D, F/C. Pain 7/10 in the left leg, throbbing, denies numbness and tingling Vitals: reviewed BP 144/73 Pulse 86 Temp 97.7 ??F (36.5 ??C) Resp 16 Ht 1.702 m (5' 7 ) Wt (!) 140.6 kg (310 lb) SpO2 94% Physical Exam Constitutional: General: She is not in acute distress. Appearance: She is obese. Cardiovascular: Rate and Rhythm: Normal rate and regular rhythm. Pulses: Normal pulses. Heart sounds: Normal heart sounds. No murmur heard. No friction rub. No gallop. Pulmonary: Effort: Pulmonary effort is normal. Breath sounds: Normal breath sounds. No wheezing, rhonchi or rales. Abdominal: General: Bowel sounds are normal. Palpations: Abdomen is soft. Genitourinary: Comments: Musculoskeletal: Right lower leg: Edema present. Left lower leg: Edema present. Comments: Range of motion are normal on b/l ue, and right LE,. S/p L AKA,. Has +3 pitting edema on the RLE and dependent 3+ pitting edema on the left thigh with left stump covered in dressing B/l le edema, improving Skin: General: Skin is warm and dry. Capillary Refill: Capillary refill takes less than 2 seconds. Neurological: General: No focal deficit present. Mental Status: She is alert and oriented to person, place, and time. Psychiatric: Comments: flat affect Labs: reviewed CBC: Recent Labs Lab Units 12/11/22 0020 12/10/22 0036 12/09/22 0129 WBC 10??3/uL 12.5* 15.1* 19.1* RBC 10??6/uL 3.74* 3.49* 3.33* HGB g/dL 8.4* 8.0* 7.5* HCT % 30.2* 26.9* 25.4* BMP: Recent Labs Lab Units 12/11/22 0020 12/10/22 0036 12/09/22 0129 NA mmol/L 144 147* 146* CL mmol/L 109* 112* 113* CO2 mmol/L 25 26 23 BUN mg/dL 19 20 24 CREATININE mg/dL 1.38* 1.46* 1.63* CALCIUM mg/dL 8.0* 7.9* 7.7* Magnesium: No results for input(s): MG in the last 168 hours. Phosphorus: No results for input(s): PHOS in the last 168 hours. Coagulation: No results for input(s): PT, INR, APTT in the last 168 hours. Endocrine: No results for input(s): TSH, A1C in the last 168 hours. LFTs: No results for input(s): AST, ALT, TBILI, DBILI, IBILI, ALB, GGT, TP in the last 168 hours. Invalid input(s): ALP Imaging: No results found. Micro: Microbiology Results (Displays last 21 days for this encounter ONLY) Procedure Component Value - Date/Time BACTERIAL VAGINOSIS RAPID TEST [[id number]] (Normal) Collected: 12/06/22 182 Lab Status: Final result Specimen: Microbiology from Vaginal Swab Updated: 12/06/22 1900 Bacterial Vaginosis Rapid Negative CHLAMYDIA + GC AMPLIFIED PROBE [[id number]] (Normal) Collected: 12/05/22 1819 Lab Status: Final result Specimen: Microbiology from Vagina Updated: 12/06/22 0641 Chlamydia Amplified Probe Negative GC Amplified Probe Negative Narrative: Results based on detection/no detection of ribosomal RNA by amplified method. CULTURE BLOOD [[id number]] (Normal) Collected: 12/05/22 1704 Lab Status: Final result Specimen: Blood Peripheral Updated: 12/10/22 1902 Culture No growth day 5 CULTURE BLOOD [[id number]] Lab Status: No result Specimen: Blood Peripheral CULTURE ANAEROBE [[id number]] (Normal) Collected: 12/03/2226 Lab Status: Final result Specimen: Body Fluid Updated: 12/08/22 0812 Culture No anaerobic organisms isolated CULTURE FLUID+GRAM STAIN [[id number]] (Abnormal) (Susceptibility) Collected: 12/03/2226 Lab Status: Final result Specimen: Body Fluid Updated: 12/06/22 0543 Culture Heavy Proteus mirabilis Moderate Streptococcus agalactiae (Group B) Moderate normal skin nish Gram Stain Light Gram-positive bacilli Rare Gram-positive cocci Rare Red blood cells No polymorphonuclear cells Narrative: Susceptibility testing of penicillin, other beta-lactam antibiotics, and vancomycin is not necessary for beta-hemolytic streptococci groups A,B,C and G because resistant strains have not been recognized. Susceptibility Proteus mirabilis (1) Antibiotic Interpretation Microscan Method Status Amikacin Susceptible <=2 ug/mL CHARLES Final Ampicillin Susceptible <=2 ug/mL CHARLES Final Ampicillin-sulbactam Susceptible <=2 ug/mL CHARLES Final Cefazolin See Comment* <=4 ug/mL CHARLES Final Cefepime Susceptible <=1 ug/mL CHARLES Final Ceftriaxone Susceptible <=1 ug/mL CHARLES Final Ciprofloxacin Susceptible <=0.25 ug/mL CHARLES Final Gentamicin Susceptible <=1 ug/mL CHARLES Final Meropenem Susceptible <=0.25 ug/mL CHARLES Final Piperacillin-tazobactam Susceptible <=4 ug/mL CHARLES Final Tobramycin Susceptible <=1 ug/mL CHARLES Final Trimethoprim-sulfamethoxazole Susceptible <=20 ug/mL CHARLES Final Susceptibility Comments *Cefazolin CHARLES of </=4 cannot distinguish between susceptible or intermediate for systemic breakpoints. If further defined interpretation is needed, call Microbiology and a disk diffusion test will be performed. CULTURE BLOOD [[id number]] (Abnormal) Collected: 12/02/222031 Lab Status: Final result Specimen: Blood Peripheral Updated: 12/07/22 181 Culture Growth of Schaalia turicensis Gram Stain Gram-positive bacilli Narrative: Positive at 34 hrs CULTURE BLOOD [[id number]] (Abnormal) Collected: 12/02/221999 Lab Status: Final result Specimen: Blood Peripheral Updated: 12/09/22 1840 Culture Growth of Schaalia turicensis Gram Stain Gram-positive bacilli Gram-positive cocci Narrative: Positive at 57 hours 33 minutes Problem list: Intentional overdose of drug in tablet form (CMS/HCC) POA: Unknown Severe recurrent major 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 psychotic features (CMS/HCC) POA: Unknown PTSD (post-traumatic stress disorder) POA: Unknown Left foot infection POA: Unknown Hypoxia POA: Unknown Essential hypertension POA: Unknown Swelling of left foot POA: Unknown Bacteremia due to Gram-positive bacteria POA: Yes Assessment and plan: Leeroy Canales is a 32 year old female with past medical history of DM 2, HTN, HFpEF, morbid obesity, MDD , who presented to [facility] on 12/02/2022 for large wound to the left foot. Patient fell in the shower 2 weeks prior to the admission and sustained a small injury on the left foot, imaging Concerning for necrotizing fasciitis, initially underwent left ankle disarticulation, and now s/p left AKA with a wound VAC placed ( removed by vascular on 12/08/2022) # Wet Gangrene of the left foot # Necrotizing fascitis - X ray revealed Subcutaneous gas formation concern for necrotizing fasciitis s/p emergent left ankle disarticulation 12/02 - s/p left AKA by vascular on 12/05 - vascular surgery consulted, appr recs Wound culture: proteus mirabilis, strep agalactiae, GPB, GPC - BC- from 12/02- GP bacilli, GP cocci,- 2/2- negative - ID consulted, appr recs - discontinue cefepime - Continue Augmentin 875 mg bid po daily for 7 days (EOT 12/14/2022) - Continue pain management: Scheduled Tylenol, oxycodone 5 mg or 10 mg q.6 as a p.r.n. for [id number] pain, - PT/OT( Patient will benefit from multidisciplinary inpatient therapies) # BOBBY- improving # Urinary retention- resolved - baseline Cr- 1.15 Creat- trending down to 1.46 today -s/p Fortune placed on 12/05, removed on 12/09 - Continue lasix 40 mg po bid daily - Avoid Nephrotoxic agents, promote adequate p.o. intake # Hypertension # HFpEF Echo- 08/21/2022= ef- 60 % - Continue amlodipine 10 mg po daily - Continue lasix 40 mg bid po daily # DM type 2 -a1c- 6.7 -12/02/2022 Home regimen: Lantus 10 units, 5 units Lispro t.i.d. - Continue home Lantus, Accu-Checks and sliding scale # Depression -2 hospitalizations in the last year for suicidal attempt via overdose on antihypertensives - patient declines all on 10 depressant - patient with flat affect on exam - continue home fluoxetine 20 mg p.o. daily- patient refused to takes this medication # Vaginal discharge- resolved # Rash- improving -patient thick creamy white vaginal discharge on exam concerning for candidiasis ( resolved) . Additionally with beefy red appearing intertriginous rash - s/p fluconazole 1 dose - GC amplified probe negative - Rapid bacterial vaginosis negative - Nystatin powder TID Inpatient Checklist -LDA: piv -Antibiotic end date: 12/14/2022 -Consults: id -DVT: heparin 7.500 units q8 subc -Diet:dcc -Code: Full -Dispo: Inpatient This will be discussed with the Attending Physician. DANIEL Leslie Feel free to text page me through [employer] Date of service: 12/11/2022 Attending Physician: Amanda Georges MD UCTION GRIP * Antony Interiano RN - 12/11/2022 7:18 AM CST Problem: Pain/Discomfort Goal: Patient uses pharmacological and non-pharmacological pain management strategies. Outcome: Progressing Problem: Fall Risk Goal: Fall risk and fall related injury risk are minimized (interventions related to the fall risk can be found in the flowsheet documentation) Outcome: Progressing Problem: Balance Goal: LTG - Patient will maintain balance to allow for safe mobility Outcome: Progressing UCTION GRIP * Althea Slater RN - 12/11/2022 1:16 AM CST Problem: Pain/Discomfort Goal: Patient exhibits reduced pain/discomfort [...] found in the flowsheet documentation) Outcome: Progressing UCTION GRIP * Román Burger RN - 12/10/2022 6:39 PM CST Patient had 3 BMs since morning and was cleaned up, Had c/o hurting her perineum and stump started crying and said I want to go home I'm not getting any medicines for my loose stools Called [facility] and informed. Pt also complained about breakfast ordered by child care counselor and this RN asked her whether she can call order her food so that she can get the food she needs. In the afternoon Pt's mother and brother came to the floor and brother started yelling román, come here I want to talk to you . This RN asked him to calm down and he yelled I'm not going to calm down Her Mother was also yelling at the staff. Staff called vero sarmiento and they were send out of the floor. UCTION GRIP * Lulú Mueller - 12/10/2022 4:07 PM CST Graduate Assistant has made multiple attempts to visit patient. Patient has been asleep each time liaison inspection laboratory assistant visited. Pastoral care remains available continuously. 613/01 Lulú Mueller 12/10/2022 4:08 PM UCTION GRIP * Ying Ferguson - 12/10/2022 1:53 PM CST Discharge operating room scheduler received a request from LORETTA Menard to schedule a follow up appointment with Vascular Surgery. Upon reviewing the chart, it should be noted that the patient has an appointment already scheduled with on 12/24/2022 at 1:15pm. No further discharge planning needs at this time. Ying Ferguson 12/10/2022 UCTION GRIP * Heather Love COTA - 12/10/2022 12:20 PM CST [facility] Occupational Therapy Progress Note Patient: Leeroy Canales Med Record Number: [id number] Date of : 1990 Age: [age] year old PPE worn by staff: gloves;mask - procedural;gown - disposable PPE worn by patient: socks - clean;gown - patient, clean Tech: None Co Treatment with PT: co-treat due to pt level of assist. Discharge Recommendation: Patient will benefit from intense 3 hour per day multidisciplinary inpatient therapies due to address pt deconditioning, mobility decline, and decreased ADL participation. . Nurse and Physical Therapy contacted regarding patient status and/or discharge plan. Activity Level: as tolerated PRECAUTIONS: Weight Bearing Status: Lower Extremity (NWB L LE) Weight Bearing: NWB SUBJECTIVE: Subjective: Pt agreeable to therapy, pkay to treat per RN. Pain Assessment: Pain Rating Score #: 7 Pain Location : Leg Pain Orientation: Left Follow-up for pain: RN present at pain assessment, provided medication. RN aware. Pt agreed to proceed with treatment. OBJECTIVE: At start of therapy session, patient found in bed and with no alarm General Appearance: Pt in bed supine, HOB raised, O2 nasal canula on ears, but not placed correctly. NAD. LDA: IV's: Peripheral line, Oxygen Nasal Cannula and female external catheter (purewick) Vitals: (*Assess the 3 levels of oxygen saturations both for room air and 02 unless rest on room air is 88% or less). Rest BP: ??not assessed HR: 97 Sp02 ? 95% Room Air ? Ex/Gait/Activity Without 02 BP: ?? HR: 98 Sp02 95% Room Air Post Activity BP: ?? HR: 98 Sp02 ?? Sp02 95% Room Air Observations: Pt denied dizziness and SOB throughout session. ?? Mental Status/Cognition: Level of Consciousness-Adult: Alert Orientation Level: Oriented X4 Cognition: Follows Commands-Consistent Attention Span: Appears intact Memory: Appears intact Following Commands: Follows one step commands consistently Safety Judgement: Decreased awareness of need for assistance Awareness of Errors: Decreased awareness of deficits;Assistance required to identify errors made;Assistance required to correct errors made Problem Solving: Assistance required to generate solutions;Assistance required to implement solutions Mobility: a gait belt and non-slip sock were used for all out of bed activity this date. Bed Mobility: Rolling: Moderate Assistance to Right;Moderate Assistance to Left Supine to Sit: Moderate Assistance;X 2 with HOB in semi-fowlers position Sit to Supine: Moderate Assistance;X 2 Transfers: Sit to Stand: Activity Does Not Occur (Pt not appropriate at this time. Pt with recent AKA, and fair sitting balance. B UE not at strength level appropriate to use support.) At this time pt will require valerie or ceiling lift for transfers. Functional Ambulation: Functional mobility of ambulation not appropriate. Balance: Balance Scales/Tests Used: Sitting: Static/Dynamic Sitting - Static: Fair;With Both Upper Extremity's Support Sitting - Dynamic: Poor +;With Both Upper Extremity's Support Activities of Daily Living: Feeding: Set-up (Pt requesting to be fed. Reports, I am blind . Assisted pt in opening containers, pt able to feed self.) Oral Facial Hygiene: Set-up Bathing: Activity Does Not Occur Upper Body Dressing: Maximal Assistance Lower Body Dressing: Total Assistance Toileting: Total Assistance (Pt incontinent of stool at bed level. Pt Max A to roll and required total assist for hygiene and barrier cream application. Pt with open sores/abrasions in iveth area. RN aware.) Splint Issued/Checked: none ACTIVITY TOLERANCE: Patient's activity tolerance: fair. TREATMENT/INTERVENTIONS: ADL training Functional transfer training Energy conservation Safety awareness EDUCATION: While performing OT, Patient was instructed in:functional mobility training, self-care training, energy conservation, safety awareness/fall precautions , use of call light Presented to patient who demonstrates Good understanding of instructions given. INFORMED CONSENT TO TREATMENT: Plan of care including recommended therapy, goals and frequency, discussed with patient who understands and agrees to proceed. ASSESSMENT: Patient continues to benefit from skilled Occupational Therapy to achieve the following functional goals. Short Term Goals: Goal Formation With patient Patient will perform grooming??at edge of bed and with moderate assist Patient will transfer to bedside commode??with moderate assist of 2 and while maintaining WB precautions Patient will perform supine to/from sit??with moderate assist of 2 Patient will perform bed to chair??with moderate assist of 2 and while maintaining WB precautions Fdc Goal(s): Patient to discharge to appropriate [...] , with call light within reach, with RNRomán, with therapy cues visible on white board. UCTION GRIP * Aide Sutton, MILLIE/BARI - 12/10/2022 12:01 PM CST Images from the original note were not included. Nutrition Re-Assessment Brief Synopsis: Patient is at Nutrition Risk; Specific criteria can be found in assessment below Nutrition Plan: Continue Diabetic Consistent Carb diet. +Nathaniel BID (7gm arginine, 7gm glutamine, 2.5g collagen protein, 300mg VIT C, 9.5mg zinc) Recommendations to Physician: Consider starting Remeron if appetite or PO intake declines Recommendations to nursing: Encourage intake of meals and supplements Comments: Pt scheduled for reassessment. Pt s/p left AKA 12/05; TTF 12/04. Wound vac removed 12/08. Reported PO intake is 70-100% of meals and 237mL ONS. +BM x3 over 24hrs per I/Os - loose/semi-liquid stool noted. Assessment: Med/Surg History and Clinical Diagnoses: severe morbid obesity, poorly controlled diabetes, presenting with diabetic wet gangrene now s/p L ankle disarticulation on 12/02/22. will need AKA per notes Diet order accuracy Current diet order: Consistent Carb Standard Current supplement order: Nathaniel BID Nutrition recommendation: agree with current nutrition order P.O.Intake for the past 48 hrs:% Meal Taken Av % Min: 70 % Max: 80 % Supplement(s) Consumed- Last 48 hours Date/Time Dietary Supplement Name Liquid Supplement Consumed (mL) Non-Liquid Supplement Consumed (%) 12/09/22 0800 -- 237 ML -- Food Allergies: No known food allergies GI Concerns: None Chewing/Swallowing: None Pain affecting intake: No Admission weight: Weight: 129.3 kg (285 lb) (12/02/22 1731) Recent Weights/Methods 04/24/2010 0928 08/21/2022 0813 12/02/2022 1731 12/03/2022 0128 12/04/2022 0345 12/05/2022 0430 Weight: 141.1 kg (311 lb) 128.8 kg (283 lb 14.4 oz) 129.3 kg (285 lb) 145 kg (319 lb 10.7 oz) 148.5kg (327 lb 6.1 oz) 156.9 kg (346 lb) Weight Method (Utilize Scales): -- Bedscale Stated Bedscale Bedscale Bedscale BMI: Body mass index is 54.19 kg/m??. BMI Range: Morbidly Obese Class 3 Wt Comments: Monitoring Height: 170.2 cm (5' 7 ) IBW/lb (Calculated) Female: 135, Laboratory values reviewed. Recent Labs Component Name 12/10/22 0036 12/09/22 0129 12/08/22 0331 12/03/22 0242 12/02/22 1955 08/22/22 0317 08/21/22 0847 BUN 20 24 27* - 27* - 7 CREATININE 1.46* 1.63* 1.86* - 2.95* - 1.62* NA 147* 146* 145 - 139 - - POTASSIUM 3.6 3.4* 3.7 - 3.9 - 2.9* CL 112* 113* 112* - 106 - - CO2 22 - 17* - 28 GLUCOSE 159* 109 158* - 53* - 180* CALCIUM 7.9* 7.7* 7.6* - 7.6* - 8.2* PROT - - - - 6.0 - - ALB - - - - 0.8* - - TBILI - - - - 1.9* - - ALKPHOS - - - - 313* - 87 ALT - - - - 38 - 11 AST - - - - 47* - 5 ANIONGAP 13 13 15 - 20* - 10 BCR 14 15 15 - 9 - - OSMOLALITY 310* 307* 308* - 291 - - AGRATIO - - - - 0.2* - - EGFR 49* 43* 37* - 21* - 44* - = values in this interval not displayed. Medications noted. Current Facility-Administered Medications Medication ??? 0.9% NaCl injection 3 mL And ??? 0.9% NaCl injection 1-10 mL ??? acetaminophen (Tylenol) tablet 500 mg ??? amLODIPine (Norvasc) tablet 10 mg ??? amoxicillin-clavulanate (Augmentin) tablet 875 mg ??? FLUoxetine (PROzac) capsule 20 mg ??? furosemide (Lasix) tablet 40 mg ??? heparin injection 7,500 Units ??? insulin glargine (Lantus) pen 10 Units ??? insulin lispro (HumaLOG;ADMelog) 100 UNIT/ML pen 0-12 Units ??? insulin lispro (HumaLOG;ADMelog) 100 UNIT/ML pen 5 Units ??? nystatin (Mycostatin) powder ??? oxyCODONE (immediate release) (Roxicodone) tablet 5 mg Or ??? oxyCODONE (immediate release) (Roxicodone) tablet 10 mg ??? potassium chloride ER (Klor-Con M) tablet 20 mEq Skin/Wound: foot wound- gangrene, plan for AKA Estimated Energy Needs: KCAL: 1718-1824 (30-35 kcal/kg IBW) wound Protein (g): 95 (1.5 g/kg IBW) Fluid (ml): 1 ml/kcal Needs based on: (45.5kg) Recommended Access Route: PO Education needed: Wound Healing Education Provided: Yes Expected level of compliance: Fair;Needs reinforcement Nutrition Care Process (1) Nutrition Diagnostic [...] Progress: Continue with current goal [id number] UCTION GRIP * Kimberly Monterroso MSW - 12/10/2022 11:53 AM CST PADMINI continues to follow. Kenia is working to request auth from [place] [employer]. She asked SW about possible psych eval for patient due to h/o MDD and new amputation. PADMINI contacted [facility] [employer]ESS H[employer] K[employer]ITTER who agreed to order eval. VERONIKA Barrios 12/10/2022 [phone] UCTION GRIP * Román Burger RN - 12/10/2022 11:02 AM CST Problem: Fall Risk Goal: Fall risk and [...] engage in desired activity. Outcome: Progressing Problem: Nutrient: Increased nutrient needs (specify) Goal: Total intake will meet estimated nutrient needs Outcome: Progressing UCTION GRIP * Neelam Brown PT - 12/10/2022 10:48 AM CST [facility] Physical Medicine and Rehabilitation Physical Therapy Progress Note Patient: Leeroy Canales Med Record Number: [id number] Date of : 1990 Age: [age] year old PPE worn by staff: gloves;mask - procedural;gown - disposable cotx with OT Discharge Recommendation: Patient will benefit from intense 3 hour per day multidisciplinary inpatient therapies due to new AKA. SUBJECTIVE: Subjective: ok Pain Assessment: pt did not rate for therapist, grimacing with all mobility; RN was in room prior to therapy, administered medication Follow-up for pain: No follow-up for pain indicated and patient agreed to proceed with treatment PRECAUTIONS: Weight Bearing Status: (NWB LLE) OBJECTIVE: At start of therapy session, patient found in bed General Appearance: 32 yo F, 5'7 346#, awake and alert, NAD LDAs: IV's: Peripheral line Vitals: (*Assess the 3 levels of oxygen saturations both for room air and 02 unless rest on room air is 88% or less). Rest BP: HR: 97 Sp02 95% Room Air Ex/Gait/Activity Without 02 BP: HR: 98 Sp02 95% Room Air Post Activity BP: HR: 98 Sp02 Sp02 95% Room Air Observations: Mental Status/Cognition: Level of Consciousness-Adult: Alert Orientation Level: Oriented X4 Cognition: Follows Commands-Consistent Mobility: A gait belt and non-slip socks were used for all out of bed activity this date. Bed Mobility: Rolling: Moderate Assistance to Right;Moderate Assistance to Left Supine to Sit: Moderate Assistance;X 2 Sit to Supine: Moderate Assistance;X 2 Weight Bearing Status: (NWB LLE) Balance: Sitting - Static: Fair;With Both Upper Extremity's Support Sitting - Dynamic: Fair -;With One Upper Extremity Support ACTIVITY TOLERANCE: Patient's activity tolerance: good. TREATMENT/INTERVENTIONS: rolled R<>L with mod A for clean up after BM; mod of 2 to perform supine > sit; pt sat EOB x10 min with min/SBA with BUE support, performed RLE LAQ, marches, x10 each, UE chair push ups EOB x5 to prepare for scooting (unable to succeed with scooting along EOB dueto type of air mattress patient has); mod of 2 to return to supine, mod of 2 to scoot up in bed Modified [place]: EDUCATION: While performing PT, Patient was instructed in:functional mobility training, weight bearing status, safety awareness/fall precautions Presented to patient who demonstrates Good understanding of instructions given. ASSESSMENT: Patient would benefit from additional Physical Therapy sessions to achieve the following functionalgoals to enhance independence. Short Term Goals: Goal Formation With patient Patient to be independent for L residual limb HEP and positioning to reduce risk for contractures Patient will perform bed mobility??with minimal assist Patient will demonstrate Fair sitting balance with 1UE assist for 5 minutes Patient will transfer sit to/from stand??with maximal assist and X 1 Patient will transfer bed to/from chair??with maximal assist and X 1 Tomato Pulper Operator Goal(s): Patient to discharge to appropriate [...] in bed, with call light within reach. UCTION GRIP * Rosi Menard V., CARMEN-PLATFORM SOFTWARE ENGINEER - 12/10/2022 8:35 AM CST Images from the original note were not included. Hospitalist Daily Progress Note Name: Leeroy Canales Age: [age] year old Room: 613/01 Date Admitted: 12/02/2022 Hospital Course: Leeroy Canales is a 32 year old female with past medical history of DM 2, HTN, HFpEF, morbid obesity, MDD , who presented to [facility] on 12/02/2022 for large wound to the left foot. Patient fell in the shower 2 weeks prior to the admission and sustained a small injury on the left foot. Developed progressive blistering skin sloughing and foul discharge to the side. In ER- patient was afebrile BP 151 /108. Labs show creatinine 2.95, alk-phos 315, white blood cell count 42,000, esr >130, bnp- 551. X-ray revealed subcutaneous gas formation concern for necrotizing fasciitis. Vascular consulted, patient's underwent emergent left ankle disarticulation. Patient's stated IV vanc/ safety/clindamycin. Blood cultures from 12/02 positive for GPC/ GPB, pending speciation. Wound culture positive for Proteus mirabilis and Streptococcus agalactiae. Antibiotics deescalated to IV cefepime to oral Augmentin . Patient was transferred to ICU following ankle disarticulation for bacteremia. Patient was transferred to the floor on 12/04. Patient's underwent left AKA per IP vascular surgery on 12/05 24H/S: No acute events overnights Pt seen and examined at bedside. Pt denied CP, SOB, N/V/D, F/C. Pain 7/10 in the left leg, throbbing, denies numbness and tingling Vitals: reviewed BP 151/77 Pulse 87 Temp 97.9 ??F (36.6 ??C) (Oral) Resp 18 Ht 1.702 m (5' 7 ) Wt (!) 156.9 kg (346 lb) SpO2 94% Physical Exam Constitutional: General: She is not in acute distress. Appearance: She is obese. Cardiovascular: Rate and Rhythm: Normal rate and regular rhythm. Pulses: Normal pulses. Heart sounds: Normal heart sounds. No murmur heard. No friction rub. No gallop. Pulmonary: Effort: Pulmonary effort is normal. Breath sounds: Normal breath sounds. No wheezing, rhonchi or rales. Abdominal: General: Bowel sounds are normal. Palpations: Abdomen is soft. Genitourinary: Comments: Musculoskeletal: Right lower leg: Edema present. Left lower leg: Edema present. Comments: Range of motion are normal on b/l ue, and right LE,. S/p L AKA,. Has +3 pitting edema on the RLE and dependent 3+ pitting edema on the left thigh with left stump covered in dressing. Skin: General: Skin is warm and dry. Capillary Refill: Capillary refill takes less than 2 seconds. Neurological: General: No focal deficit present. Mental Status: She is alert and oriented to person, place, and time. Psychiatric: Comments: flat affect Labs: reviewed CBC: Recent Labs Lab Units 12/10/22 0036 12/09/22 0129 12/08/22 0331 WBC 10??3/uL 15.1* 19.1* 20.0* RBC 10??6/uL 3.49* 3.33* 3.33* HGB g/dL 8.0* 7.5* 7.6* HCT % 26.9* 25.4* 25.6* BMP: Recent Labs Lab Units 12/10/226 12/09/229 12/08/22 0331 NA mmol/L 147* 146* 145 CL mmol/L 112* 113* 112* CO2 mmol/L 26 23 22 BUN mg/dL 20 24 27* CREATININE mg/dL 1.46* 1.63* 1.86* CALCIUM mg/dL 7.9* 7.7* 7.6* Magnesium: No results for input(s): MG in the last 168 hours. Phosphorus: Recent Labs Lab Units 12/04/22 0358 PHOS mg/dL 5.1 Coagulation: No results for input(s): PT, INR, APTT in the last 168 hours. Endocrine: No results for input(s): TSH, A1C in the last 168 hours. LFTs: No results for input(s): AST, ALT, TBILI, DBILI, IBILI, ALB, GGT, TP in the last 168 hours. Invalid input(s): ALP Imaging: No results found. Micro: Microbiology Results (Displays last 21 days for this encounter ONLY) Procedure Component Value - Date/Time BACTERIAL VAGINOSIS RAPID TEST [[id number]] (Normal) Collected: 12/06/22 1820 Lab Status: Final result Specimen: Microbiology from Vaginal Swab Updated: 12/06/221899 Bacterial Vaginosis Rapid Negative CHLAMYDIA + GC AMPLIFIED PROBE [[id number]] (Normal) Collected: 12/05/22 1819 Lab Status: Final result Specimen: Microbiology from Vagina Updated: 12/06/22 0641 Chlamydia Amplified Probe Negative GC Amplified Probe Negative Narrative: Results based on detection/no detection of ribosomal RNA by amplified method. CULTURE BLOOD [[id number]] (Normal) Collected: 12/05/22 1704 Lab Status: Preliminary result Specimen: Blood Peripheral Updated: 12/07/22 1901 Culture No growth CULTURE BLOOD [[id number]] Lab Status: No result Specimen: Blood Peripheral CULTURE ANAEROBE [[id number]] (Normal) Collected: 12/03/2226 Lab Status: Final result Specimen: Body Fluid Updated: 12/08/22 0812 Culture No anaerobic organisms isolated CULTURE FLUID+GRAM STAIN [[id number]] (Abnormal) (Susceptibility) Collected: 12/03/2226 Lab Status: Final result Specimen: Body Fluid Updated: 12/06/22 0543 Culture Heavy Proteus mirabilis Moderate Streptococcus agalactiae (Group B) Moderate normal skin nish Gram Stain Light Gram-positive bacilli Rare Gram-positive cocci Rare Red blood cells No polymorphonuclear cells Narrative: Susceptibility testing of penicillin, other beta-lactam antibiotics, and vancomycin is not necessary for beta-hemolytic streptococci groups A,B,C and G because resistant strains have not been recognized. Susceptibility Proteus mirabilis (1) Antibiotic Interpretation Microscan Method Status Amikacin Susceptible <=2 ug/mL CHARLES Final Ampicillin Susceptible <=2 ug/mL CHARLES Final Ampicillin-sulbactam Susceptible <=2 ug/mL CHARLES Final Cefazolin See Comment* <=4 ug/mL CHARLES Final Cefepime Susceptible <=1 ug/mL CHARLES Final Ceftriaxone Susceptible <=1 ug/mL CHARLES Final Ciprofloxacin Susceptible <=0.25 ug/mL CHARLES Final Gentamicin Susceptible <=1 ug/mL CHARLES Final Meropenem Susceptible <=0.25 ug/mL CHARLES Final Piperacillin-tazobactam Susceptible <=4 ug/mL CHARLES Final Tobramycin Susceptible <=1 ug/mL CHARLES Final Trimethoprim-sulfamethoxazole Susceptible <=20 ug/mL CHARLES Final Susceptibility Comments *Cefazolin CHARLES of </=4 cannot distinguish between susceptible or intermediate for systemic breakpoints. If further defined interpretation is needed, call Microbiology and a disk diffusion test will be performed. CULTURE BLOOD [[id number]] (Abnormal) Collected: 12/02/222031 Lab Status: Final result Specimen: Blood Peripheral Updated: 12/07/22 181 Culture Growth of Schaalia turicensis Gram Stain Gram-positive bacilli Narrative: Positive at 34 hrs CULTURE BLOOD [[id number]] (Abnormal) Collected: 12/02/221999 Lab Status: Final result Specimen: Blood Peripheral Updated: 12/09/22 184 Culture Growth of Schaalia turicensis Gram Stain Gram-positive bacilli Gram-positive cocci Narrative: Positive at 57 hours 33 minutes Problem list: Intentional overdose of drug in tablet form (CMS/HCC) POA: Unknown Severe recurrent major 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 psychotic features ([facility]/HCC) POA: Unknown PTSD (post-traumatic stress disorder) POA: Unknown Left foot infection POA: Unknown Hypoxia POA: Unknown Essential hypertension POA: Unknown Swelling of left foot POA: Unknown Bacteremia due to Gram-positive bacteria POA: Yes Assessment and plan: Leeroy Canales is a 32 year old female with past medical history of DM 2, HTN, HFpEF, morbid obesity, MDD , who presented to [facility] on 12/02/2022 for large wound to the left foot. Patient fell in the shower 2 weeks prior to the admission and sustained a small injury on the left foot, imaging Concerning for necrotizing fasciitis, initially underwent left ankle disarticulation, and now s/p left AKA with a wound VAC placed ( removed by vascular on 12/08/2022) # Wet Gangrene of the left foot # Necrotizing fascitis - X ray revealed Subcutaneous gas formation concern for necrotizing fasciitis s/p emergent left ankle disarticulation 12/02 - s/p left AKA by vascular on 12/05 - vascular surgery consulted, appr recs Wound culture: proteus mirabilis, strep agalactiae, GPB, GPC - BC- from 12/02- GP bacilli, GP cocci,- 2/2- negative - ID consulted, appr recs - discontinue cefepime - Continue Augmentin 875 mg bid po daily for 7 days (EOT 12/14/2022) - Continue pain management: Scheduled Tylenol, oxycodone 5 mg or 10 mg q.6 as a p.r.n. for lzshmuza-gl-midbhg pain, - PT/OT( Patient will benefit from multidisciplinary inpatient therapies) # BOBBY- improving # Urinary retention- resolved - baseline Cr- 1.15 Creat- trending down to 1.46 today -s/p Fortune placed on 12/05, removed on 12/09 - Continue sodium bicarbonate tid po daily - Continue lasix 40 mg po bid daily - Avoid Nephrotoxic agents, promote adequate p.o. intake # Hypertension # HFpEF Echo- 08/21/2022= ef- 60 % - Continue amlodipine 10 mg po daily - Continue lasix 40 mg bid po daily # DM type 2 -a1c- 6.7 -12/02/2022 Home regimen: Lantus 10 units, 5 units Lispro t.i.d. - Continue home Lantus, Accu-Checks and sliding scale # Depression -2 hospitalizations in the last year for suicidal attempt via overdose on antihypertensives - patient declines all on 10 depressant - patient with flat affect on exam - continue home fluoxetine 20 mg p.o. daily # Vaginal discharge # Rash- improving -patient thick creamy white vaginal discharge on exam concerning for candidiasis ( resolved) . Additionally with beefy red appearing intertriginous rash - s/p fluconazole 1 dose - GC amplified probe negative - Rapid bacterial vaginosis negative - Nystatin powder TID Inpatient Checklist -LDA: piv -Antibiotic end date: 12/14/2022 -Consults: id -DVT: heparin 7.500 units q8 subc -Diet:dcc -Code: Full -Dispo: Inpatient This will be discussed with the Attending Physician. DANIEL Leslie Feel free to text page me through [employer] Date of service: 12/10/2022 Attending Physician: Amanda Georges MD UCTION GRIP * Kimberly Monterroso MSW - 12/09/2022 4:15 PM CST New Facility Placement Referral source: PT/OT Date of referral: 12/09/22 Admitted from: home Special Needs: new AKA Patient Goal (short term and keno terminal operator): short term Level of Care (SNF/Medicaid NH/Rehab/Tomato Pulper Operator Care/LTACH): acute rehab Spoke with (Phone number, if not patient. Family participation encouraged): patient Family Contacted: No List of facilities provided (patient preference and geographic preference): Yes Referrals initiated: Continued Care and Services - Admitted Since 12/02/2022 Destination Service Provider Request Status Selected Services Address Phone Fax Patient Preferred [facility]. Acute Rehab Pending - Request Sent N/A [address] [place] [id number] -- If Medicare-3 day qualifying stay verified: No monitoring facility responses Comments: Patient prefers [facility] from list of facilities provided. SW notified Anabel/MARCE of referral. Name: VERONIKA Brooks Phone: [phone] UCTION GRIP * Ying Ferguson - 12/09/2022 3:42 PM CST Discharge Importer Or Exporter received request from Dr. Bladimir Chandra to arrange follow-up appointment for Patient with Vascvular. This justowriter operator called [phone] and spoke with Roxanna. Importer Or Exporter was able to obtain follow-up appointment for Patient with Dr. machado on Saturday December 24, 2022 at 1:15 pm. No further follow-up needs from operating room scheduler indicated at this time. Ying Ferguson, Discharge Importer Or Exporter 12/09/2022 UCTION GRIP * Román Burger RN - 12/09/2022 11:31 AM CST Problem: Pain/Discomfort Goal: Patient exhibits reduced pain/discomfort [...] found in the flowsheet documentation) Outcome: Progressing UCTION GRIP * Rosi Menard V., MARKETING AND PROMOTIONS MANAGER-PLATFORM SOFTWARE ENGINEER - 12/09/2022 8:30 AM CST Images from the original note were not included. Hospitalist Daily Progress Note Name: Leeroy Canales Age: [age] year old Room: 613/ Date Admitted: 12/02/2022 Hospital Course: Leeroy Canales is a 32 year old female with past medical history of DM 2, HTN, HFpEF, morbid obesity, MDD , who presented to [facility] on 12/02/2022 for large wound to the left foot. Patient fell in the shower 2 weeks prior to the admission and sustained a small injury on the left foot. Developed progressive blistering skin sloughing and foul discharge to the side. In ER- patient was afebrile BP 151 /108. Labs show creatinine 2.95, alk-phos 315, white blood cell count 42,000, esr >130, bnp- 551. X-ray revealed subcutaneous gas formation concern for necrotizing fasciitis. Vascular consulted, patient's underwent emergent left ankle disarticulation. Patient's stated IV vanc/ safety/clindamycin. Blood cultures from 12/02 positive for GPC/ GPB, pending speciation. Wound culture positive for Proteus mirabilis and Streptococcus agalactiae. Antibiotics deescalated to IV cefepime to oral Augmentin . Patient was transferred to ICU following ankle disarticulation for bacteremia. Patient was transferred to the floor on 12/04. Patient's underwent left AKA per IP vascular surgery on 12/05 24H/S: No acute events overnights Pt seen and examined at bedside. Pt denied CP, SOB, N/V/D, F/C. Pain 7/10 in the left leg, throbbing, denies numbness and tingling Vitals: reviewed BP 141/80 Pulse 87 Temp 98 ??F (36.7 ??C) (Oral) Resp 18 Ht 1.702 m (5' 7 ) Wt (!) 156.9 kg (346 lb) SpO2 100% Physical Exam Constitutional: General: She is not in acute distress. Appearance: She is obese. Cardiovascular: Rate and Rhythm: Normal rate and regular rhythm. Pulses: Normal pulses. Heart sounds: Normal heart sounds. No murmur heard. No friction rub. No gallop. Pulmonary: Effort: Pulmonary effort is normal. Breath sounds: Normal breath sounds. No wheezing, rhonchi or rales. Abdominal: General: Bowel sounds are normal. Palpations: Abdomen is soft. Genitourinary: Comments: Fortune catheter present Musculoskeletal: Comments: Range of motion are normal on b/l ue, and right LE,. S/p L AKA, with wound vac removed byvascular on 12/08 . Has +3 pitting edema on the RLE and dependent edema on the left thigh with leftstump covered in dressing. Skin: General: Skin is warm and dry. Capillary Refill: Capillary refill takes less than 2 seconds. Neurological: General: No focal deficit present. Mental Status: She is alert and oriented to person, place, and time. Psychiatric: Comments: flat affect Labs: reviewed CBC: Recent Labs Lab Units 12/09/22 01212/08/2233012/07/22 0533 WBC 10??3/uL 19.1* 20.0* 20.5* RBC 10??6/uL 3.33* 3.33* 3.57* HGB g/dL 7.5* 7.6* 8.1* HCT % 25.4* 25.6* 27.3* BMP: Recent Labs Lab Units 12/09/22 0129 12/08/22 0331 12/07/22 0534 NA mmol/L 146* 145 142 CL mmol/L 113* 112* 113* CO2 mmol/L 23 22 21* BUN mg/dL 24 27* 30* CREATININE mg/dL 1.63* 1.86* 2.13* CALCIUM mg/dL 7.7* 7.6* 7.2* Magnesium: No results for input(s): MG in the last 168 hours. Phosphorus: Recent Labs Lab Units 12/04/22 0358 12/03/22 0242 PHOS mg/dL 5.1 4.4 Coagulation: No results for input(s): PT, INR, APTT in the last 168 hours. Endocrine: No results for input(s): TSH, A1C in the last 168 hours. LFTs: Recent Labs Lab Units 12/02/221954 AST U/L 47* ALT U/L 38 TBILI mg/dL 1.9* ALB g/dL 0.8* Imaging: No results found. Micro: Microbiology Results (Displays last 21 days for this encounter ONLY) Procedure Component Value - Date/Time BACTERIAL VAGINOSIS RAPID TEST [[id number]] (Normal) Collected: 12/06/22 182 Lab Status: Final result Specimen: Microbiology from Vaginal Swab Updated: 12/06/22 1900 Bacterial Vaginosis Rapid Negative CHLAMYDIA + GC AMPLIFIED PROBE [[id number]] (Normal) Collected: 12/05/22 181 Lab Status: Final result Specimen: Microbiology from Vagina Updated: 12/06/22 0641 Chlamydia Amplified Probe Negative GC Amplified Probe Negative Narrative: Results based on detection/no detection of ribosomal RNA by amplified method. CULTURE BLOOD [[id number]] (Normal) Collected: 12/05/22 1704 Lab Status: Preliminary result Specimen: Blood Peripheral Updated: 12/07/22 190 Culture No growth CULTURE BLOOD [[id number]] Lab Status: No result Specimen: Blood Peripheral CULTURE ANAEROBE [[id number]] (Normal) Collected: 12/03/2226 Lab Status: Final result Specimen: Body Fluid Updated: 12/08/22 0812 Culture No anaerobic organisms isolated CULTURE FLUID+GRAM STAIN [[id number]] (Abnormal) (Susceptibility) Collected: 12/03/2226 Lab Status: Final result Specimen: Body Fluid Updated: 12/06/22 0543 Culture Heavy Proteus mirabilis Moderate Streptococcus agalactiae (Group B) Moderate normal skin nish Gram Stain Light Gram-positive bacilli Rare Gram-positive cocci Rare Red blood cells No polymorphonuclear cells Narrative: Susceptibility testing of penicillin, other beta-lactam antibiotics, and vancomycin is not necessary for beta-hemolytic streptococci groups A,B,C and G because resistant strains have not been recognized. Susceptibility Proteus mirabilis (1) Antibiotic Interpretation Microscan Method Status Amikacin Susceptible <=2 ug/mL CHARLES Final Ampicillin Susceptible <=2 ug/mL CHARLES Final Ampicillin-sulbactam Susceptible <=2 ug/mL CHARLES Final Cefazolin See Comment* <=4 ug/mL CHARLES Final Cefepime Susceptible <=1 ug/mL CHARLES Final Ceftriaxone Susceptible <=1 ug/mL CHARLES Final Ciprofloxacin Susceptible <=0.25 ug/mL CHARLES Final Gentamicin Susceptible <=1 ug/mL CHARLES Final Meropenem Susceptible <=0.25 ug/mL CHARLES Final Piperacillin-tazobactam Susceptible <=4 ug/mL CHARLES Final Tobramycin Susceptible <=1 ug/mL CHARLES Final Trimethoprim-sulfamethoxazole Susceptible <=20 ug/mL CHARLES Final Susceptibility Comments *Cefazolin CHARLES of </=4 cannot distinguish between susceptible or intermediate for systemic breakpoints. If further defined interpretation is needed, call Microbiology and a disk diffusion test will be performed. CULTURE BLOOD [[id number]] (Abnormal) Collected: 12/02/222031 Lab Status: Final result Specimen: Blood Peripheral Updated: 12/07/22 181 Culture Growth of Schaalia turicensis Gram Stain Gram-positive bacilli Narrative: Positive at 34 hrs CULTURE BLOOD [[id number]] (Abnormal) Collected: 12/02/221999 Lab Status: Preliminary result Specimen: Blood Peripheral Updated: 12/08/22 184 Culture Culture in progress Growth of Schaalia turicensis Gram Stain Gram-positive bacilli Gram-positive cocci Narrative: Positive at 57 hours 33 minutes Problem list: Intentional overdose of drug in tablet form (CMS/HCC) POA: Unknown Severe recurrent major 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 psychotic features (CMS/HCC) POA: Unknown PTSD (post-traumatic stress disorder) POA: Unknown Left foot infection POA: Unknown Hypoxia POA: Unknown Essential hypertension POA: Unknown Swelling of left foot POA: Unknown Bacteremia due to Gram-positive bacteria POA: Yes Assessment and plan: Leeroy Canales is a 32 year old female with past medical history of DM 2, HTN, HFpEF, morbid obesity, MDD , who presented to [facility] on 12/02/2022 for large wound to the left foot. Patient fell in the shower 2 weeks prior to the admission and sustained a small injury on the left foot, imaging Concerning for necrotizing fasciitis, initially underwent left ankle disarticulation, and now s/p left AKA with a wound VAC placed ( removed by vascular on 12/08/2022) # Wet Gangrene of the left foot # Necrotizing fascitis - X ray revealed Subcutaneous gas formation concern for necrotizing fasciitis s/p emergent left ankle disarticulation 12/02 - s/p left AKA by vascular on 12/05 - vascular surgery consulted, appr recs Wound culture: proteus mirabilis, strep agalactiae, GPB, GPC - BC- from 12/02- GP bacilli, GP cocci,- 2/2- negative - ID consulted, appr recs - discontinue cefepime - Continue Augmentin 875 mg bid po daily for 7 days (EOT 12/14/2022) - Continue pain management: Scheduled Tylenol, oxycodone 5 mg or 10 mg q.6 as a p.r.n. for vnmyljbv-lt-krzywl pain, Dilaudid 0.2 mg q.5 hours p.r.n. for breakthrough pain - PT/OT # BOBBY- improving # Urinary retention - baseline Cr- 1.15 Creat- trending down to 1.63 today - Fortune placed on 12/05 - Voiding trial 12/09 - Continue sodium bicarbonate tid po daily - Continue lasix 40 mg po bid daily - Avoid Nephrotoxic agents, promote adequate p.o. intake # Hypertension # HFpEF Echo- 08/21/2022= ef- 60 % - Continue amlodipine 10 mg po daily - Continue lasix 40 mg bid po daily # DM type 2 -a1c- 6.7 -12/02/2022 Home regimen: Lantus 10 units, 5 units Lispro t.i.d. - Continue home Lantus, Accu-Checks and sliding scale # Depression -2 hospitalizations in the last year for suicidal attempt via overdose on antihypertensives - patient declines all on 10 depressant - patient with flat affect on exam - continue home fluoxetine 20 mg p.o. daily # Vaginal discharge # Rash- improving -patient thick creamy white vaginal discharge on exam concerning for candidiasis ( resolved) . Additionally with beefy red appearing intertriginous rash - s/p fluconazole 1 dose - GC amplified probe negative - Rapid bacterial vaginosis negative - Nystatin powder TID Inpatient Checklist -LDA: piv -Antibiotic end date: 12/14/2022 -Consults: id -DVT: heparin 7.500 units q8 subc -Diet:dcc -Code: Full -Dispo: Inpatient This will be discussed with the Attending Physician. DANIEL Leslie Feel free to text page me through [employer] Date of service: 12/09/2022 Attending Physician: Branden Galindo MD UCTION GRIP * Jennifer Quinteros RN - 12/08/2022 7:39 PM CST Problem: Pain/Discomfort Goal: Patient exhibits reduced pain/discomfort [...] Problem: Balance Goal: LTG - Patient will maintain balance to allow for safe mobility Outcome: Progressing UCTION GRIP * Jenifer Duenas MD - 12/08/2022 12:32 PM CST Images from the original note were not included. [facility] Infectious Diseases Consultation Patient's Primary Care Physician: No primary care provider on file. Reason for Consultation: Gram positive bacteremia Referring Physcian: Tommie Echevarria MD Name: Leeroy Canales Age: [age] year old 8 Chief Complaint/History of Present Illness HPI: Leeroy Canales is a 32 year old Black/ Americanfemale with medical history significant for DM type 2, history of recent fall in the bathroom with resulting trauma and non healing wound onleft foot, with necrotizing fascitis, initially Left ankle disarticulation cultures with Group B strep, Proteus mirabilis, 12/02/22, with subsequent Left AKA 12/05/22. She seen to have positive blood cultures collected from 12/02. Interval history/Review of Systems Pain at stump site Just got the pain medicine and sleepy WBC count 20. Afebrile Exam Vitals: 12/07/22 2355 12/08/22 0422 12/08/22 0746 12/08/22 1121 BP: 140/79 152/82 149/76 129/72 Pulse: 94 97 92 89 Resp: 18 18 Temp: 97.9 ??F (36.6 ??C) 98.4 ??F (36.9 ??C) 98.1 ??F (36.7 ??C) 98 ??F (36.7 ??C) SpO2: 91% 93% 91% 100% Weight: Height: Temp (30hrs) Max:98.4 ??F (36.9 ??C) General appearance: alert cooperative no distress HEENT: perrl, neck supple/nt Lungs: clear to auscultation bilaterally Heart: regular rate and rhythm, S1, S2 normal, no murmur, click, rub or gallop, Abdomen: soft, non-tender; bowel sounds normal; no masses, no organomegaly, obese Extremities/Skin: LLE dressed wound vac has been removed, Rt LE with edema, no rash/lesion Lines: PIV left hand, 12/05/22 PIV right hand 12/03/22 MEDICATIONS FOR CURRENT ENCOUNTER: SCHEDULED MEDICATIONS: 0.9% NaCl injection 3 mL, Intracatheter, q8h acetaminophen (Tylenol) tablet 500 mg, Oral, q6h amLODIPine (Norvasc) tablet 10 mg, Oral, QDAY cefTRIAXone (Rocephin) 2,000 mg in 0.9% NaCl IV 50 mL IVPB, Intravenous, q24h FLUoxetine (PROzac) capsule 20 mg, Oral, QDAY furosemide (Lasix) tablet 40 mg, Oral, BID heparin injection 7,500 Units, Subcutaneous, TID insulin glargine (Lantus) pen 10 Units, Subcutaneous, AT BEDTIME insulin lispro (HumaLOG;ADMelog) 100 UNIT/ML pen 0-12 Units, Subcutaneous, q4h insulin lispro (HumaLOG;ADMelog) 100 UNIT/ML pen 5 Units, Subcutaneous, TID WC nystatin (Mycostatin) powder, Topical, TID sodium bicarbonate tablet 650 mg, Oral, 4X/day ?? vancomycin (Vancocin) IV dose per pharmacy, Does not apply, DIRECTED Data Recent Labs Component Name 12/08/2233012/07/22 0533 12/06/22 0401 12/05/22 1703 WBC 20.0* 20.5* 19.5* 16.8* HGB 7.6* 8.1* 7.6* 6.6* HCT 25.6* 27.3* 25.2* 21.4* PLTCOUNT 562* - 577* 493* Recent Labs Component Name 12/08/22 0331 12/07/22 0534 12/06/22 0401 12/02/22 1955 08/25/22 0315 08/24/22 1404 08/24/22 0725 SODIUM - - - - 142 143 138 POTASSIUM 3.7 3.5 3.7 - 3.6 3.7 5.2* CHLORIDE - - - - 107 103 110* CO2 22 21* 20* - 26 30 20* BUN 27* 30* 33* - 13 9 8 CREATININE 1.86* 2.13* 2.57* - 1.58* 1.43* 1.42* GLUCOSE 158* 91 142* - 211* 145* 165* CALCIUM 7.6* 7.2* 7.4* - 7.9* 8.2* 7.8* - = values in this interval not displayed. Recent Labs Component Name 12/02/22195408/25/2231408/24/22 1404 08/24/22 0725 08/22/22 0317 08/21/22 0847 ALBUMIN - 2.0* 2.1* 1.7* - 2.2* ALKPHOS 313* - - - - 87 ALT 38 - - - - 11 AST 47* - - - - 5 TBIL - - - - - 0.3 TPROT - - - - - 5.5* - = values in this interval not displayed. No results for input(s): CDIFFTOXINAB in the last 09877 hours. No results for input(s): SEDRATE in the last 65771 hours. No results for input(s): CK in the last 63608 hours. .No results for input(s): VANCOTROUGH, VANCOPEAK, VANCSERIES in the last 24042 hours. Invalid input(s): VANCORAND Recent Labs Component Name 12/02/22203108/22/22316 HGBA1C 6.7* 11.7* Recent Labs Component Name 12/03/22 165 PHUA 5.0 UROBILINUA Negative RBCUA 11-20* No results for input(s): FERRITIN in the last 24551 hours. Recent Labs Component Name 12/02/22 204 CRP 25.2* No results for input(s): PROCALCITON in the last 32709 hours. Recent Labs Component Name 12/02/221954 BNP 551* Microbiology 12/03/22 Group B strep, Proteus mirabilis Radiology Pertinent radiology reports filed in chart and reviewed. Assessment Gram positive bacteremia GPBSs and GPCs on stain Growth of Schaalia turicensis (Actinomyces species) per discussion with micro lab, both anaerobic bottles were positive, samples were drawn 30 minutes apart. Still would think contamination vs skin source of bacteremia which is now resolved with adequate source control. B lactam antibiotics cover if pathogenic. Leukocytosis Likely reactive post surgery, improving Left foot trauma/ necrotizing fascitis Post Left AKA Wound vac in place DM type 2 Essential hypertension Severe recurrent major 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 psychotic features/ PTSD Obesity Plan - Left foot Necrotizing fascitis and now post amputation- adequate source control. - Repeat blood cultures from 12/05/20, NGSF. - Monitor WBC count. - Afebrile. - Sacral/coccygeal excoraition . - Left leg high amputation with source control. - Wound care. - Stop IV antibiotics , start Augmentin 875 BID for 7 days for SST. ID will sign off. Recommendations conveyed to Med- 2. Jenifer Duenas MD [facility] infectious Diseases team-2. UCTION GRIP * Himanshu Chandra MD - 12/08/2022 10:18 AM CST Vascular Surgery Plan of Care -Patient dressing taken down today, photo in media tab. Wound looks appropriate for current POD. -Patient will follow in vascular surgery clinic in 2 weeks (appointment requested) for staple removal. -Vascular surgery to sign off. Himanshu Chandra MD [facility] Vascular Surgery 12/08/2022 10:19 AM UCTION GRIP * Román Burger RN - 12/08/2022 10:18 AM CST Problem: Pain/Discomfort Goal: Patient exhibits reduced pain/discomfort [...] found in the flowsheet documentation) Outcome: Progressing UCTION GRIP * Rosi Menard V., MARKETING AND PROMOTIONS MANAGER-PLATFORM SOFTWARE ENGINEER - 12/08/2022 8:06 AM CST Images from the original note were not included. Hospitalist Daily Progress Note Name: Leeroy Canales Age: [age] year old Room: 613/01 Date Admitted: 12/02/2022 Hospital Course: Leeroy Canales is a 32 year old female with past medical history of DM 2, HTN, HFpEF, morbid obesity, MDD , who presented to [facility] on 12/02/2022 for large wound to the left foot. Patient fell in the shower 2 weeks prior to the admission and sustained a small injury on the left foot. Developed progressive blistering skin sloughing and foul discharge to the side. In ER- patient was afebrile BP 151 /108. Labs show creatinine 2.95, alk-phos 315, white blood cell count 42,000, esr >130, bnp- 551. X-ray revealed subcutaneous gas formation concern for necrotizing fasciitis. Vascular consulted, patient's underwent emergent left ankle disarticulation. Patient's stated IV vanc/ safety/clindamycin. Blood cultures from 12/02 positive for GPC/ GPB, pending speciation. Wound culture positive for Proteus mirabilis and Streptococcus agalactiae. Antibiotics deescalated to IV cefepime. Patient was transferred to ICU following ankle disarticulation for bacteremia. Patient was transferred to the floor on 12/04. Patient's underwent left AKA per IP vascular surgery on 12/05 24H/S: No acute events overnights Pt seen and examined at bedside. Pt denied CP, SOB, N/V/D, F/C. Pain 8/10 in the left leg Wound vac removed on 12/08 by vascular Vitals: reviewed BP 129/72 Pulse 89 Temp 98 ??F (36.7 ??C) (Oral) Resp 18 Ht 1.702 m (5' 7 ) Wt (!) 156.9 kg (346 lb) SpO2 100% Physical Exam Constitutional: General: She is not in acute distress. Appearance: She is obese. Cardiovascular: Rate and Rhythm: Normal rate and regular rhythm. Pulses: Normal pulses. Heart sounds: Normal heart sounds. No murmur heard. No friction rub. No gallop. Pulmonary: Effort: Pulmonary effort is normal. Breath sounds: Normal breath sounds. No wheezing, rhonchi or rales. Abdominal: General: Bowel sounds are normal. Palpations: Abdomen is soft. Genitourinary: Comments: Fortune remain in place 2/2 urinary retention after surgery Musculoskeletal: Comments: Range of motion are normal on b/l ue, and right LE,. S/p L AKA, with wound vac removed byvascular on 12/08 . Has +3 pitting edema on the RLE and dependent edema on the left thigh with leftstump covered in dressing. Skin: General: Skin is warm and dry. Capillary Refill: Capillary refill takes less than 2 seconds. Neurological: General: No focal deficit present. Mental Status: She is alert and oriented to person, place, and time. Psychiatric: Comments: flat affect Labs: reviewed CBC: Recent Labs Lab Units 12/08/22 03312/07/22 0533 12/06/22 0401 WBC 10??3/uL 20.0* 20.5* 19.5* RBC 10??6/uL 3.33* 3.57* 3.34* HGB g/dL 7.6* 8.1* 7.6* HCT % 25.6* 27.3* 25.2* BMP: Recent Labs Lab Units 12/08/22 0331 12/07/22 0534 12/06/22 0401 NA mmol/L 145 142 140 CL mmol/L 112* 113* 111* CO2 mmol/L 22 21* 20* BUN mg/dL 27* 30* 33* CREATININE mg/dL 1.86* 2.13* 2.57* CALCIUM mg/dL 7.6* 7.2* 7.4* Magnesium: No results for input(s): MG in the last 168 hours. Phosphorus: Recent Labs Lab Units 12/04/22 0358 12/03/22 0242 PHOS mg/dL 5.1 4.4 Coagulation: No results for input(s): PT, INR, APTT in the last 168 hours. Endocrine: No results for input(s): TSH, A1C in the last 168 hours. LFTs: Recent Labs Lab Units 12/02/22 1955 AST U/L 47* ALT U/L 38 TBILI mg/dL 1.9* ALB g/dL 0.8* Imaging: No results found. Micro: Microbiology Results (Displays last 21 days for this encounter ONLY) Procedure Component Value - Date/Time BACTERIAL VAGINOSIS RAPID TEST [[id number]] (Normal) Collected: 12/06/221819 Lab Status: Final result Specimen: Microbiology from Vaginal Swab Updated: 12/06/22 190 Bacterial Vaginosis Rapid Negative CHLAMYDIA + GC AMPLIFIED PROBE [[id number]] (Normal) Collected: 12/05/221818 Lab Status: Final result Specimen: Microbiology from Vagina Updated: 12/06/22 0641 Chlamydia Amplified Probe Negative GC Amplified Probe Negative Narrative: Results based on detection/no detection of ribosomal RNA by amplified method. CULTURE BLOOD [[id number]] (Normal) Collected: 12/05/22 1704 Lab Status: Preliminary result Specimen: Blood Peripheral Updated: 12/07/22 190 Culture No growth CULTURE BLOOD [[id number]] Lab Status: No result Specimen: Blood Peripheral CULTURE ANAEROBE [[id number]] (Normal) Collected: 12/03/2226 Lab Status: Final result Specimen: Body Fluid Updated: 12/08/22 0812 Culture No anaerobic organisms isolated CULTURE FLUID+GRAM STAIN [[id number]] (Abnormal) (Susceptibility) Collected: 12/03/2226 Lab Status: Final result Specimen: Body Fluid Updated: 12/06/22 0543 Culture Heavy Proteus mirabilis Moderate Streptococcus agalactiae (Group B) Moderate normal skin nish Gram Stain Light Gram-positive bacilli Rare Gram-positive cocci Rare Red blood cells No polymorphonuclear cells Narrative: Susceptibility testing of penicillin, other beta-lactam antibiotics, and vancomycin is not necessary for beta-hemolytic streptococci groups A,B,C and G because resistant strains have not been recognized. Susceptibility Proteus mirabilis (1) Antibiotic Interpretation Microscan Method Status Amikacin Susceptible <=2 ug/mL CHARLES Final Ampicillin Susceptible <=2 ug/mL CHARLES Final Ampicillin-sulbactam Susceptible <=2 ug/mL CHARLES Final Cefazolin See Comment* <=4 ug/mL CHARLES Final Cefepime Susceptible <=1 ug/mL CHARLES Final Ceftriaxone Susceptible <=1 ug/mL CHARLES Final Ciprofloxacin Susceptible <=0.25 ug/mL CHARLES Final Gentamicin Susceptible <=1 ug/mL CHARLES Final Meropenem Susceptible <=0.25 ug/mL CHARLES Final Piperacillin-tazobactam Susceptible <=4 ug/mL CHARLES Final Tobramycin Susceptible <=1 ug/mL CHARLES Final Trimethoprim-sulfamethoxazole Susceptible <=20 ug/mL CHARLES Final Susceptibility Comments *Cefazolin CHARLES of </=4 cannot distinguish between susceptible or intermediate for systemic breakpoints. If further defined interpretation is needed, call Microbiology and a disk diffusion test will be performed. CULTURE BLOOD [[id number]] (Abnormal) Collected: 12/02/222031 Lab Status: Final result Specimen: Blood Peripheral Updated: 12/07/22 181 Culture Growth of Schaalia turicensis Gram Stain Gram-positive bacilli Narrative: Positive at 34 hrs CULTURE BLOOD [[id number]] (Abnormal) Collected: 12/02/221999 Lab Status: Preliminary result Specimen: Blood Peripheral Updated: 12/07/22 161 Culture Culture in progress Growth of Schaalia turicensis Gram Stain Gram-positive bacilli Gram-positive cocci Narrative: Positive at 57 hours 33 minutes Problem list: Intentional overdose of drug in tablet form (CMS/HCC) POA: Unknown Severe recurrent major 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 psychotic features (CMS/HCC) POA: Unknown PTSD (post-traumatic stress disorder) POA: Unknown Left foot infection POA: Unknown Hypoxia POA: Unknown Essential hypertension POA: Unknown Swelling of left foot POA: Unknown Bacteremia due to Gram-positive bacteria POA: Yes Assessment and plan: Leeroy Canales is a 32 year old female with past medical history of DM 2, HTN, HFpEF, morbid obesity, MDD , who presented to [facility] on 12/02/2022 for large wound to the left foot. Patient fell in the shower 2 weeks prior to the admission and sustained a small injury on the left foot, imaging Concerning for necrotizing fasciitis, initially underwent left ankle disarticulation, and now s/p left AKA with a wound VAC placed ( removed by vascular on 12/08/2022) # Wet Gangrene of the left foot # Necrotizing fascitis - X ray revealed Subcutaneous gas formation concern for necrotizing fasciitis s/p emergent left ankle disarticulation 12/02 - s/p left AKA by vascular on 12/05 - vascular surgery consulted, appr recs - Wound vac to remain in place for 3 days, site to be examined on on 12/08 and managed by vascular surgery team -- Wound culture: proteus mirabilis, strep agalactiae, GPB, GPC - BC- from 12/02- GP bacilli, GP cocci,- 2/2- negative - ID consulted, appr recs - discontinue cefepime - Started Augmentin 875 mg bid po daily for 7 days (EOT 12/14/2022) - Continue pain management: Scheduled Tylenol, oxycodone 5 mg or 10 mg q.6 as a p.r.n. for [id number] pain, Dilaudid 0.2 mg q.5 hours p.r.n. for breakthrough pain - PT/OT # BOBBY- improving # Urinary retention - baseline Cr- 1.15 Creat- trending down to 1.86 today - Fortune placed on 12/05 - Voiding trial 12/09 - Continue sodium bicarbonate tid po daily - Continue lasix 40 mg po bid daily - Avoid Nephrotoxic agents, promote adequate p.o. intake # Hypertension # HFpEF Echo- 08/21/2022= ef- 60 % - Continue amlodipine 10 mg po daily - Continue lasix 40 mg bid po daily # DM type 2 -a1c- 6.7 -12/02/2022 Home regimen: Lantus 10 units, 5 units Lispro t.i.d. - Continue home Lantus, Accu-Checks and sliding scale # Depression -2 hospitalizations in the last year for suicidal attempt via overdose on antihypertensives - patient declines all on 10 depressant - patient with flat affect on exam - continue home fluoxetine 20 mg p.o. daily # Vaginal discharge # Rash- improving -patient thick creamy white vaginal discharge on exam concerning for candidiasis ( resolved) . Additionally with beefy red appearing intertriginous rash - s/p fluconazole 1 dose - GC amplified probe negative - Rapid bacterial vaginosis negative - Nystatin powder TID Inpatient Checklist -LDA: piv -Antibiotic end date: 12/14/2022 -Consults: id -DVT: heparin 7.500 units q8 subc -Diet:dcc -Code: Full -Dispo: Inpatient This will be discussed with the Attending Physician. DANIEL Leslie Feel free to text page me through [employer] Date of service: 12/08/2022 Attending Physician: Branden Galindo MD UCTION GRIP * Jennifer Quinteros RN - 12/07/2022 7:32 PM CST Problem: Pain/Discomfort Goal: Patient exhibits reduced pain/discomfort [...] safe completion of daily activities Outcome: Progressing UCTION GRIP * Leigh Meek OT - 12/07/2022 1:09 PM CST [facility] Physical Medicine and Rehabilitation Occupational Therapy Re-assessment Patient: Leeroy Canales Med Record Number: [id number] Date of : 1990 Age: [age] year old New OT orders received s/p L AKA. Re-assessment performed 2/2 change in functional status followingsurgery; d/c rec and OT POC updated this date. PPE worn by staff: gloves;mask - procedural;gown - disposable PPE worn by patient: socks - clean;gown - patient, clean Cotx w/ PT 2/2 anticipated level of skilled assist Discharge Recommendation: Patient will benefit from multidisciplinary inpatient therapies. Nurse and Physical Therapy contacted regarding patient status and/or discharge plan. Activity Level: ambulate PRECAUTIONS: Weight Bearing Status: Lower Extremity (NWB L LE) SUBJECTIVE: Subjective: Pt agreeable to therapy Pain Assessment: Pain Rating Score #: 7 Pain Location : Leg (w/ activity) Pain Orientation: Left Follow-up for pain: Yes, informed nurse/physician about pain issue and patient agreed to proceed with treatment OBJECTIVE: At start of therapy session, patient found in bed General Appearance: 32 y/o female received in NAD LDA: Peripheral line, Wound Vacuum and Oxygen Nasal Cannula (doffed during session 2/2 SpO2 reads stable on RA) Rest BP: 143/81 HR: 88 Sp02 ?? Sp02 100% 2.5LNC ?? 95% RA Room Air ?? L O2 ? Ex/Gait/Activity Without 02 BP: 141/81 HR: ?? Sp02 94% Room Air ?? Post Activity BP: 147/89 HR: 87 Sp02 ?? Sp02 94% ? Room Air ?? Observations: Vital signs monitored. Patient reports dizziness Sitting EOB, BP stable. Patient on 2.5LNC at start, however VSS on RA. Patient on RA at end of tx, RN notified. ?? Mental Status/Cognition: Level of Consciousness-Adult: Alert Orientation Level: Oriented X4 Cognition: Follows Commands-Consistent Attention Span: Appears intact Memory: Appears intact Following Commands: Follows one step commands with increased time Safety Judgement: Decreased awareness of need for safety Awareness of Errors: Decreased awareness of deficits Problem Solving: Assistance required to identify errors made;Assistance required to generate solutions;Assistance required to implement solutions Mobility: a gait belt and non-slip socks were used for all out of bed activity this date. Bed Mobility: Rolling: Maximal Assistance to Right;Maximal Assistance to Left;Requires Verbal Cues for Safety;Requires Verbal Cues for Technique Supine to Sit: Maximum Assistance;X 2;Requires Verbal Cues for Technique;Requires Physical Cues forTechnique with HOB in high fowlers position Sit to Supine: Maximum Assistance;X 2;Requires Verbal Cues for Technique Transfers: Sit to Stand: Activity Does Not Occur (deferred 2/2 poor sitting balance) Stand to Sit: Activity Does Not Occur Bed to Chair: Activity Does Not Occur Functional Ambulation: Comments: deferred Balance: Sitting - Static: Poor;With Both Upper Extremity's Support (Fluctuates MAXA-HEENA with sitting EOB with use of 1-2 UE assist) Sitting - Dynamic: Poor;With Both Upper Extremity's Support Standing - Static: Not tested Standing - Dynamic: Not tested Tolerates sitting EOB <10 minutes with assist Activities of Daily Living: Feeding: Activity Does Not Occur Oral Facial Hygiene: Set-up (from bed/chair level; unable to participate in self-care tasks seated EOB 2/2 sitting balance) Bathing: Activity Does Not Occur Upper Body Dressing: Maximal Assistance (adjust gown seated EOB) Lower Body Dressing: Maximal Assistance (don R sock) Toileting: Activity Does Not Occur Splint Issued/Checked: none ACTIVITY TOLERANCE: Patient's activity tolerance: poor plus. TREATMENT/INTERVENTIONS: ADL training Functional transfer training Endurance training Bed mobility Safety awareness EDUCATION: While performing OT, Patient and sister was instructed in:functional mobility training, self-care training, weight bearing status, safety awareness/fall precautions , use of call light, coordinating exhales with movement to assist w/ pain tolerance, L residual limb positioning; phantom limb paim Presented to patient who demonstrates Fair understanding of instructions given. INFORMED CONSENT TO TREATMENT: Plan of care including recommended therapy, goals and frequency, discussed with patient who understands and agrees to proceed. ASSESSMENT: Functional performance limited due to: limited activities of daily living, pain, decreased functional mobility, decreased functional balance, decreased safety awareness and decreased endurance and activity tolerance. Short Term Goals: Goal Formation With patient/family Patient will perform grooming at edge of bed and with moderate assist Patient will transfer to bedside commode with moderate assist of 2 and while maintaining WB precautions Patient will perform supine to/from sit with moderate assist of 2 Patient will perform bed to chair with moderate assist of 2 and while maintaining WB precautions Tomato Pulper Operator Goal(s): Patient to discharge to appropriate next level of inpatient care ?? Plan: Plan: ADL training Adaptive equipment training Functional transfer training Functional balance training Endurance training Bed mobility training Safety awareness ?? If patient is discharged from the facility, this note serves as a discharge summary if further occupational therapy visits did not occur. Refer to filed flowsheet for further details. Following therapy session, patient left in bed, with call light within reach, with family in room. UCTION GRIP * Adelina Silvestre RN - 12/07/2022 11:52 AM CST Patient received glucose tablet current BG 70. Ordered lunch. Will continue to monitor during shift UCTION GRIP * Adelina Silvestre RN - 12/07/2022 11:40 AM CST Patients BG 48. Paged Med 1 to inform them of this. Waiting for response. Pt. Was given orange juice. There are no prn orders for low BG for this patient. UCTION GRIP * Ai Garvin, PT - 12/07/2022 10:23 AM CST [facility] Physical Medicine and Rehabilitation Physical Therapy Initial Re-Evaluation Note Patient: [facility] Record Number: [id number] Date of : 1990 Age: [age] year old Patient with new PT orders placed postop L AKA POD2 PPE worn by staff: gloves;mask - procedural;gown - disposable Tech: N/A Co- re-evaluation with OT due to anticipated skilled level of assist needed to optimize participation postop. Discharge Recommendation: Patient will benefit from multidisciplinary inpatient therapies. In addition to the 1:1 re- evaluation of the patient, additional eval time was spent completing thechart review prior to the assessment, completing the multidisciplinary plan of care and education plan post re- evaluation and communicating results of the eval to other treatment team members. Nurse and Occupational Therapy contacted regarding patient status and/or discharge plan. Physician Orders: Evaluation and Treat PRECAUTIONS: Weight Bearing Status: Lower Extremity (NWB LLE) Activity Level: (ambulate) DIAGNOSIS: Patient Active Problem List: Type II or unspecified type diabetes mellitus without mention of complication, not stated as uncontrolled (CMS/HCC) Intentional overdose of drug in tablet form (CMS/HCC) Severe recurrent major 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 psychotic features (CMS/HCC) PTSD (post-traumatic stress disorder) CHF (congestive heart failure) (CMS/HCC) Left foot infection Hypoxia Essential hypertension Swelling of left foot Bacteremia due to Gram-positive bacteria Past Medical History: Diagnosis Date ??? Type 2 diabetes mellitus without complications (CMS/HCC) SUBJECTIVE: Subjective: Patient agreeable to PT/OT session. Patient reports pain/ sensation to LLE (phantom limb). Of note, patient with visitor present who reports to therapists at end of session that patient had recent episode of emesis s/p drinking juice from tray (Per RN drink was Nathaniel- RN Adelina notified) PATIENT GOALS: Home Situation: Additional Information (PT): see initial evaluation completed 2/ Prior Level of Functioning: Mobility: (see initial evaluation completed 2) Pain Assessment: Pain Rating Score #: 7 (reports minimal pain at rest, states 7/10 with activity) Pain Location : Leg Follow-up for pain: No follow-up for pain indicated and patient agreed to proceed with treatment OBJECTIVE: At start of therapy session, patient found in bed. General Appearance: Patient is a 32 YF, NAD LDAs: IV's: Peripheral line, Wound Vacuum and Oxygen Nasal Cannula (doffed during session 2/2 SpO2 reads stable on RA) Edema: edema noted in left lower extremity (with postop dressing and wound vac donned) Vitals: (*Assess the 3 levels of oxygen saturations both for room air and 02 unless rest on room air is 88% or less). Rest BP: 143/81 HR: 88 Sp02 Sp02 100% 2.5LNC 95% RA Room Air L O2 Ex/Gait/Activity Without 02 BP: 141/81 HR: Sp02 94% Room Air Post Activity BP: 147/89 HR: 87 Sp02 Sp02 94% Room Air Observations: Vital signs monitored. Patient reports dizziness Sitting EOB, BP stable. Patient on 2.5LNC at PT entrance, however VSS on RA. Patient on RA at PT exit, RN notified. Mental Status/Cognition: Level of Consciousness-Adult: Alert;Eyes Open Spontaneously Orientation Level: Oriented X4 Cognition: Follows Commands-Consistent ROM: RLE: AROM WFL L residual limb: declines ROM assessment 2/2 pain Strength: RLE:WFL LLE: not tested Tone: RLE: no abnormal tone noted LLE: no abnormal tone noted Coordination: RLE: not tested LLE: not tested Sensation: RLE: no complaints of numbness or tingling, intact to LT LLE: no complaints of numbness or tingling, intact to LT to L residual limb Mobility: A gait belt and non-slip socks were used for all out of bed activity this date. Bed Mobility: Supine to Sit: Maximum Assistance;X 2 with HOB in high fowlers position Sit to Supine: Maximum Assistance;X 2 Transfers: Sit to Stand: Activity Does Not Occur (2/2 poor sitting balance) Stand to Sit: Activity Does Not Occur Bed to Chair: Activity Does Not Occur Gait: Weight Bearing Status: Lower Extremity (NWB LLE) Distance Ambulated: 0 FEET (not safe to attempt 2/2 decreased sitting balance/ tolerance for activity) Balance: Balance Scales/Tests Used: Sitting: Static/Dynamic Sitting - Static: Poor;With Both Upper Extremity's Support (Fluctuates MAXA-HEENA with sitting EOB with use of 1-2 UE assist) Sitting - Dynamic: Poor;With Both Upper Extremity's Support Standing - Static: Not tested Standing - Dynamic: Not tested Tolerates sitting EOB <10 minutes with assist ACTIVITY TOLERANCE: Patient's activity tolerance: poor TREATMENT/INTERVENTIONS: re-evaluation s/p L AKA, bed mobility training, balance activities and monitoring of vitals Extensive education for positioning of L residual limb to prevent contractures. PT educate for HEP for: glut sets, hip ext EDUCATION: While performing PT, Patient was instructed in:functional mobility training, energy conservation, safety awareness/fall precautions, home exercise program with education for positioning ofL residual limb, pursed lip breathing techniques 2/2 patient tendency to hold breath with pain, useof adaptive equipment, discharge planning, use of call [...] Term Goals: Goal Formation With patient Patient to be independent for L residual limb HEP and positioning to reduce risk for contractures Patient will perform bed mobility with minimal assist Patient will demonstrate Fair sitting balance with 1UE assist for 5 minutes Patient will transfer sit to/from stand with maximal assist and X 1 Patient will transfer bed to/from chair with maximal assist and X 1 Fdc Goal(s): Patient to discharge to appropriate next level of inpatient care. Equipment Issued: gait belt Plan: Plan: Transfer training Assistive device training Endurance training Bed mobility training Balance training Energy conservation techniques Safety awareness Home exercise program training If patient is discharged from the facility, this note serves as a discharge summary if further physical therapy visits did not occur. Refer to filed flowsheet for further details. Following therapy session, patient left in bed, with call light within reach, with family in room, with Adelina SAMUEL aware. UCTION GRIP * dAelina Silvestre RN - 12/07/2022 9:18 AM CST Problem: Pain/Discomfort Goal: Patient exhibits reduced pain/discomfort [...] will meet estimated nutrient needs Outcome: Progressing UCTION GRIP * Rosi Menard V., MARKETING AND PROMOTIONS MANAGER-LEEROY - 12/07/2022 8:53 AM CST Images from the original note were not included. Hospitalist Daily Progress Note Name: Leeroy Canales Age: [age] year old Room: 613 Date Admitted: 12/02/2022 Hospital Course: Leeroy Canales is a 32 year old female with past medical history of DM 2, HTN, HFpEF, morbid obesity, MDD , who presented to [facility] on 12/02/2022 for large wound to the left foot. Patient fell in the shower 2 weeks prior to the admission and sustained a small injury on the left foot. Developed progressive blistering skin sloughing and foul discharge to the side. In ER- patient was afebrile BP 151 /108. Labs show creatinine 2.95, alk-phos 315, white blood cell count 42,000, esr >130, bnp- 551. X-ray revealed subcutaneous gas formation concern for necrotizing fasciitis. Vascular consulted, patient's underwent emergent left ankle disarticulation. Patient's statin IV vanc/ safety/clindamycin. Blood cultures from 12/02 positive for GP sees/DP P pending speciation blood culture positive for Proteus mirabilis and Streptococcus agalactiae. Antibiotics deescalated to IV cefepime.Patient was transferred to ICU following ankle disarticulation for bacteremia.Patient was transferred to the floor on 12/04. Patient's underwent left AKA per IP vascular surgeryon 12/05 24H/S: No acute events overnights Pt seen and examined at bedside. Pt denied CP, SOB, N/V/D, F/C. Pain 5/10 in the left leg, better control. Vitals: reviewed BP 147/89 Pulse 84 Temp 97.9 ??F (36.6 ??C) (Oral) Resp 20 Ht 1.702 m (5' 7 ) Wt (!) 156.9 kg (346 lb) SpO2 95% Physical Exam Constitutional: General: She is not in acute distress. Appearance: She is obese. Cardiovascular: Rate and Rhythm: Normal rate and regular rhythm. Pulses: Normal pulses. Heart sounds: Normal heart sounds. No murmur heard. No friction rub. No gallop. Pulmonary: Effort: Pulmonary effort is normal. Breath sounds: Normal breath sounds. No wheezing, rhonchi or rales. Abdominal: General: Bowel sounds are normal. Palpations: Abdomen is soft. Musculoskeletal: Comments: Range of motion are normal on b/l ue, and right le,. S/p L AKA, with wound vac present. Has +3 pitting edema on the RLE and dependent edema on the left thigh with left stump covered in dressing. Skin: General: Skin is warm and dry. Capillary Refill: Capillary refill takes less than 2 seconds. Neurological: General: No focal deficit present. Mental Status: She is alert and oriented to person, place, and time. Psychiatric: Comments: flat affect Labs: reviewed CBC: Recent Labs Lab Units 12/07/22 0533 12/06/22 0401 12/05/22 1703 WBC 10??3/uL 20.5* 19.5* 16.8* RBC 10??6/uL 3.57* 3.34* 2.94* HGB g/dL 8.1* 7.6* 6.6* HCT % 27.3* 25.2* 21.4* BMP: Recent Labs Lab Units 12/07/22 0534 12/06/22 0401 12/05/22 1006 NA mmol/L 142 140 138 CL mmol/L 113* 111* 117* CO2 mmol/L 21* 20* 19* BUN mg/dL 30* 33* 37* CREATININE mg/dL 2.13* 2.57* 2.67* CALCIUM mg/dL 7.2* 7.4* 6.7* Magnesium: No results for input(s): MG in the last 168 hours. Phosphorus: Recent Labs Lab Units 12/04/22 0358 12/03/22 0242 PHOS mg/dL 5.1 4.4 Coagulation: No results for input(s): PT, INR, APTT in the last 168 hours. Endocrine: No results for input(s): TSH, A1C in the last 168 hours. LFTs: Recent Labs Lab Units 12/02/221954 AST U/L 47* ALT U/L 38 TBILI mg/dL 1.9* ALB g/dL 0.8* Imaging: No results found. Micro: Microbiology Results (Displays last 21 days for this encounter ONLY) Procedure Component Value - Date/Time BACTERIAL VAGINOSIS RAPID TEST [[id number]] (Normal) Collected: 12/06/22 182 Lab Status: Final result Specimen: Microbiology from Vaginal Swab Updated: 12/06/22 190 Bacterial Vaginosis Rapid Negative CHLAMYDIA + GC AMPLIFIED PROBE [[id number]] (Normal) Collected: 12/05/22 181 Lab Status: Final result Specimen: Microbiology from Vagina Updated: 12/06/22 0641 Chlamydia Amplified Probe Negative GC Amplified Probe Negative Narrative: Results based on detection/no detection of ribosomal RNA by amplified method. CULTURE BLOOD [[id number]] (Normal) Collected: 12/05/22 1704 Lab Status: Preliminary result Specimen: Blood Peripheral Updated: 12/06/22 1901 Culture No growth 24 hours CULTURE BLOOD [[id number]] Lab Status: No result Specimen: Blood Peripheral CULTURE ANAEROBE [[id number]] (Normal) Collected: 12/03/2226 Lab Status: Preliminary result Specimen: Body Fluid Updated: 12/06/22 1354 Culture No anaerobic organisms isolated to date. CULTURE FLUID+GRAM STAIN [[id number]] (Abnormal) (Susceptibility) Collected: 12/03/2226 Lab Status: Final result Specimen: Body Fluid Updated: 12/06/22 0543 Culture Heavy Proteus mirabilis Moderate Streptococcus agalactiae (Group B) Moderate normal skin nish Gram Stain Light Gram-positive bacilli Rare Gram-positive cocci Rare Red blood cells No polymorphonuclear cells Narrative: Susceptibility testing of penicillin, other beta-lactam antibiotics, and vancomycin is not necessary for beta-hemolytic streptococci groups A,B,C and G because resistant strains have not been recognized. Susceptibility Proteus mirabilis (1) Antibiotic Interpretation Microscan Method Status Amikacin Susceptible <=2 ug/mL CHARLES Final Ampicillin Susceptible <=2 ug/mL CHARLES Final Ampicillin-sulbactam Susceptible <=2 ug/mL CHARLES Final Cefazolin See Comment* <=4 ug/mL CHARLES Final Cefepime Susceptible <=1 ug/mL CHARLES Final Ceftriaxone Susceptible <=1 ug/mL CHARLES Final Ciprofloxacin Susceptible <=0.25 ug/mL CHARLES Final Gentamicin Susceptible <=1 ug/mL CHARLES Final Meropenem Susceptible <=0.25 ug/mL CHARLES Final Piperacillin-tazobactam Susceptible <=4 ug/mL CHARLES Final Tobramycin Susceptible <=1 ug/mL CHARLES Final Trimethoprim-sulfamethoxazole Susceptible <=20 ug/mL CHARLES Final Susceptibility Comments *Cefazolin CHARLES of </=4 cannot distinguish between susceptible or intermediate for systemic breakpoints. If further defined interpretation is needed, call Microbiology and a disk diffusion test will be performed. CULTURE BLOOD [[id number]] (Abnormal) Collected: 12/02/222031 Lab Status: Preliminary result Specimen: Blood Peripheral Updated: 12/05/22 1220 Gram Stain Gram-positive bacilli Narrative: Positive at 34 hrs CULTURE BLOOD [[id number]] (Abnormal) Collected: 12/02/221999 Lab Status: Preliminary result Specimen: Blood Peripheral Updated: 12/05/22 2354 Gram Stain Gram-positive bacilli Gram-positive cocci Narrative: Positive at 57 hours 33 minutes Problem list: Intentional overdose of drug in tablet form (CMS/HCC) POA: Unknown Severe recurrent major 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 psychotic features (CMS/HCC) POA: Unknown PTSD (post-traumatic stress disorder) POA: Unknown Left foot infection POA: Unknown Hypoxia POA: Unknown Essential hypertension POA: Unknown Swelling of left foot POA: Unknown Bacteremia due to Gram-positive bacteria POA: Yes Assessment and plan: Leeroy Canales is a 32 year old female with past medical history of DM 2, HTN, HFpEF, morbid obesity, MDD , who presented to [facility] on 12/02/2022 for large wound to the left foot. Patient fell in the shower 2 weeks prior to the admission and sustained a small injury on the left foot, imaging Concerning for necrotizing fasciitis, initially underwent left ankle disarticulation, and now s/p left AKA with a wound VAC placed # Wet Gangrene of the left foot # Necrotizing fascitis - X ray revealed Subcutaneous gas formation concern for necrotizing fasciitis s/p emergent left ankle disarticulation 12/02 - s/p left AKA by vascular on 12/05 - vascular surgery consulted, appr recs - Wound vac to remain in place for 3 days, site to be examined on on 12/08 and managed by vascular surgery team -- Wound culture: proteus mirabilis, strep agalactiae, GPB, GPC - BC- from 12/02- GP bacilli, GP cocci,- 2/2- negative - ID consulted, appr recs - Follow speciation of organisms - Continue vanc/ ceftriaxone - Continue pain management: Scheduled Tylenol, oxycodone 5 mg or 10 mg q.6 as a p.r.n. for ykcohiml-tr-bkaonu pain, Dilaudid 0.2 mg q.5 hours p.r.n. for breakthrough pain - PT/OT # BOBBY # Urinary retention - baseline Cr- 1.4 Creat- trending down to 2.12 today - Fortune placed on 12/05 - Voiding trial 12/08 - Continue sodium bicarbonate tid po daily - Continue lasix 40 mg po bid daily - Avoid Nephrotoxic agents, promote adequate p.o. intake # Hypertension # HFpEF Echo- 08/21/2022= ef- 60 % - Continue amlodipine 10 mg po daily - Continue lasix 40 mg bid po daily # DM type 2 -a1c- 6.7 -12/02/2022 Home regimen: Lantus 10 units, 5 units Lispro t.i.d. - Continue home Lantus, Accu-Checks and sliding scale # Depression -2 hospitalizations in the last year for suicidal attempt via overdose on antihypertensives - patient declines all on 10 depressant - patient with flat affect on exam - continue home fluoxetine 20 mg p.o. daily # Vaginal discharge # Rash -patient thick creamy white vaginal discharge on exam concerning for candidiasis. Additionally withbeefy red appearing intertriginous rash - s/p fluconazole 1 dose - GC amplified probe negative - Rapid bacterial vaginosis negative - Nystatin powder TID Inpatient Checklist -LDA: piv -Antibiotic end date: tbd -Consults: id -DVT: heparin 7.500 units q8 subc -Diet:dcc -Code: Full -Dispo: Inpatient This will be discussed with the Attending Physician. DANIEL Leslie Feel free to text page me through [email or web address] Date of service: 12/07/2022 Attending Physician: Branden Galindo MD UCTION GRIP * Felipe Bishop Jr., PharmD - 12/07/2022 7:15 AM CST Images from the original note were not included. Vancomycin Per Pharmacy - Follow-Up Note Subjective Leeroy Canales is a 32 year old female receiving vancomycin dosed per pharmacy. Indication for anti-infective therapy: suspected infection Site of anti-infective therapy: Blood. Goal trough 15-20 mcg/mL. Blood due to wound on foot with osteo cocnerns and foot ampt on 12/02 and now s/p L AKA 2/2 ID following Objective Day of treatment: 6 Current dosing regimen: 1250 mg, Intermittent dosing based on levels Weight: (!) 156.9 kg (346 lb) Estimated Creatinine Clearance: 60.8 mL/min (A) (by C-G formula based on SCr of 2.13 mg/dL (H)). Ht Readings from Last 1 Encounters: 12/02/22 5' 7 (1.702 m) Recent Labs Component Name 12/07/22 0534 12/07/22 0533 12/06/22 0401 12/05/22 1703 12/05/22 1006 12/04/22 1605 12/04/22 0358 CREATININE 2.13* - 2.57* - 2.67* - 3.24* WBC - 20.5* 19.5* 16.8* 18.6* - 24.8* VANCORNDM 18.5 - - - 19.6 - 18.8 - = values in this interval not displayed. Vancomycin Administrations from JAN (last 72 hours) Date/Time Action Medication Dose Rate 12/05/22 1501 $ Given vancomycin (Vancocin) 1,250 mg in 250 mL NaCl IVPB Premix 1,250 mg 12/04/22 1016 $ New Bag/Syringe vancomycin (Vancocin) 1,250 mg in 250 mL NaCl IVPB Premix 1,250 mg 200 mL/hr Microbiology Results (Displays last 21 days for this encounter ONLY) Procedure Component Value - Date/Time BACTERIAL VAGINOSIS RAPID TEST [[id number]] (Normal) Collected: 12/06/22 1820 Lab Status: Final result Specimen: Microbiology from Vaginal Swab Updated: 12/06/22 190 Bacterial Vaginosis Rapid Negative CHLAMYDIA + GC AMPLIFIED PROBE [[id number]] (Normal) Collected: 12/05/22 1819 Lab Status: Final result Specimen: Microbiology from Vagina Updated: 12/06/22 0641 Chlamydia Amplified Probe Negative GC Amplified Probe Negative Narrative: Results based on detection/no detection of ribosomal RNA by amplified method. CULTURE BLOOD [[id number]] (Normal) Collected: 12/05/22 1704 Lab Status: Preliminary result Specimen: Blood Peripheral Updated: 12/06/22 1901 Culture No growth 24 hours CULTURE BLOOD [[id number]] Lab Status: No result Specimen: Blood Peripheral CULTURE ANAEROBE [[id number]] (Normal) Collected: 12/03/2226 Lab Status: Preliminary result Specimen: Body Fluid Updated: 12/06/22 1354 Culture No anaerobic organisms isolated to date. CULTURE FLUID+GRAM STAIN [[id number]] (Abnormal) (Susceptibility) Collected: 12/03/2226 Lab Status: Final result Specimen: Body Fluid Updated: 12/06/22 0543 Culture Heavy Proteus mirabilis Moderate Streptococcus agalactiae (Group B) Moderate normal skin nish Gram Stain Light Gram-positive bacilli Rare Gram-positive cocci Rare Red blood cells No polymorphonuclear cells Narrative: Susceptibility testing of penicillin, other beta-lactam antibiotics, and vancomycin is not necessary for beta-hemolytic streptococci groups A,B,C and G because resistant strains have not been recognized. Susceptibility Proteus mirabilis (1) Antibiotic Interpretation Microscan Method Status Amikacin Susceptible <=2 ug/mL CHARLES Final Ampicillin Susceptible <=2 ug/mL CHARLES Final Ampicillin-sulbactam Susceptible <=2 ug/mL CHARLES Final Cefazolin See Comment* <=4 ug/mL CHARLES Final Cefepime Susceptible <=1 ug/mL CHARLES Final Ceftriaxone Susceptible <=1 ug/mL CHARLES Final Ciprofloxacin Susceptible <=0.25 ug/mL CHARLES Final Gentamicin Susceptible <=1 ug/mL CHARLES Final Meropenem Susceptible <=0.25 ug/mL CHARLES Final Piperacillin-tazobactam Susceptible <=4 ug/mL CHARLES Final Tobramycin Susceptible <=1 ug/mL CHARLES Final Trimethoprim-sulfamethoxazole Susceptible <=20 ug/mL CHARLES Final Susceptibility Comments *Cefazolin CHARLES of </=4 cannot distinguish between susceptible or intermediate for systemic breakpoints. If further defined interpretation is needed, call Microbiology and a disk diffusion test will be performed. CULTURE BLOOD [[id number]] (Abnormal) Collected: 12/02/222031 Lab Status: Preliminary result Specimen: Blood Peripheral Updated: 12/05/22 1220 Gram Stain Gram-positive bacilli Narrative: Positive at 34 hrs CULTURE BLOOD [[id number]] (Abnormal) Collected: 12/02/221999 Lab Status: Preliminary result Specimen: Blood Peripheral Updated: 12/05/22 2354 Gram Stain Gram-positive bacilli Gram-positive cocci Narrative: Positive at 57 hours 33 minutes Assessment Target trough:15-20 mcg/mL The vancomycin serum level reported above was drawn 38 hours after the previous dose was administered. Difficult to rely on using pharmacokinetic calculations, S.Cr is unstable at this time. BOBBY resolving Lvls suggest clearance of 1250 mg dose in 24-36 hr Plan Dosing: Will continue current regimen. And redose 1250 mg x1 today - may consider scheduling regimen (Q24 vs Q36) if Scr remains stable and therapy is to be continued [facility] Monitoring: Will obtain a random vancomycin level about 36 hours after the dose given today and re-dose if appropriate. Will continue to monitor patient's renal function. Please contact the [facility] pharmacy department ([phone]) with any questions. Felipe Bishop Jr., PharmD 12/07/2022 7:12 AM Resources: Vancomycin Protocol UCTION GRIP * Jennifer Quinteros RN - 12/06/2022 7:45 PM CST Problem: Pain/Discomfort Goal: Patient exhibits reduced pain/discomfort as evidenced by pain scores Outcome: Progressing Problem: Fall Risk Goal: Fall risk and fall related injury risk are minimized (interventions related to the fall risk can be found in the flowsheet documentation) Outcome: Progressing UCTION GRIP * Sumi Rose RN - 12/06/2022 11:49 AM CST Case Management Progress Note Anticipated level of care at discharge: Home, Acute Rehab Facility Readmit Risk: 14 Anticipated Discharge Date: 12/09/22 Transportation at Discharge: Family (Mother or brother) Transportation to MD: (Sister) Equipment at Home: Equipment at Home: None Additional DME needed: None noted at this time Pharmacy benefit: No Comments: Pt was in the OR on 12/05/2022. Waiting on new recommendations from PT/OT. SW following forpossible rehab placement. Continue to monitor. Sumi Rose RN, BSN [employer] [phone] UCTION GRIP * Román Burger RN - 12/06/2022 10:07 AM CST Problem: Pain/Discomfort Goal: Patient exhibits reduced pain/discomfort [...] found in the flowsheet documentation) Outcome: Progressing UCTION GRIP * Tyrel Gilliam MD - 12/06/2022 8:06 AM CST Vascular Surgery Progress Note Name: Leeroy Canales Hospital Day: 4 HPI: 32 year old female with history of uncontrolled T2DM, obesity, HTN, HFpEF, severe recurrent depression presenting with blistering and foul odor from her left foot. She reports minimal pain to the foot with palpation, however reports pain with ambulation on the left. Patients mother reports that shefell in the shower ~2 weeks ago and has had a small wound since then. Her sister reports that the wound acutely worsened over the past 3 days. They noted a foul smell and draining clear fluid and brought the patient to the ED. Patient and her family deny problems with wound healing in the past. Tx Hx: 12/02/22 - Left ankle disarticulation 12/05/22 left above-knee amputation Subjective: hds; afebrile. pain adequately controlled. The patient denies fevers/chills; denies nausea/vomiting; denies chest pain/shortness of breath. Objective: BP 134/72 Pulse 83 Temp 97.9 ??F (36.6 ??C) (Oral) Resp 17 Ht 1.702 m (5' 7 ) Wt (!) 156.9 kg (346 lb) SpO2 98% Temp (24hrs), Av.8 ??F (36.6 ??C), Min:97.4 ??F (36.3 ??C), Max:98 ??F (36.7 ??C) Intake/Output Summary (Last 24 hours) at 12/06/2022 0806 Last data filed at 12/05/2022 1612 Gross per 24 hour Intake 750 ml Output 1485 ml Net -735 ml Exam: Gen: NAD; AOx4 CV: regular rate and rhythm Pulm: non-laboured breathing on room air Abdomen: soft; non-tender Extremities: left above-knee amputation with wound vacuum in place Meds: Current Facility-Administered Medications Medication ??? 0.9% NaCl infusion rate and volume ??? 0.9% NaCl injection 3 mL And ??? 0.9% NaCl injection 1-10 mL ??? acetaminophen (Tylenol) tablet 500 mg ??? amLODIPine (Norvasc) tablet 10 mg ??? cefepime (Maxipime) 2,000 mg in 0.9% NaCl IV 50 mL IVPB ??? FLUoxetine (PROzac) capsule 20 mg ??? heparin injection 7,500 Units ??? HYDROmorphone (Dilaudid) injection 0.2 mg ??? insulin glargine (Lantus) pen 10 Units ??? insulin lispro (HumaLOG;ADMelog) 100 UNIT/ML pen 0-12 Units ??? insulin lispro (HumaLOG;ADMelog) 100 UNIT/ML pen 5 Units ??? nystatin (Mycostatin) powder ??? oxyCODONE (immediate release) (Roxicodone) tablet 5 mg Or ??? oxyCODONE (immediate release) (Roxicodone) tablet 10 mg ??? sodium bicarbonate tablet 650 mg ??? vancomycin (Vancocin) IV dose per pharmacy Labs: Recent Labs Component Name 12/06/22 0401 WBC 19.5* HGB 7.6* HCT 25.2* Recent Labs Component Name 12/06/22 0401 NA 140 CL 111* CO2 20* BUN 33* CREATININE 2.57* No results for input(s): PT, PTT, INR in the last 17162 hours. 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 recovering. pain adequately controlled. -continue left above-knee amputation wound vacuum -will examine amp site 12/08 -remainder of care per primary Tyrel Gilliam MD Division of Vascular Surgery, PGY-3 12/06/2022 8:08 AM UCTION GRIP * Leigh Lauren PA - 12/06/2022 7:16 AM CST Hospitalist Daily Progress Note Name: Leeroy Canales Age: [age] year old Room: 613/01 Date Admitted: 12/02/2022 Disposition: Inpatient Total duration of encounter: 4 days Hospital Course: Leeroy Canales is a 32 year old female with PMHx of DM2, HTN, HFpEF, morbid obesity, and MDD who presented to [facility] on 12/02 for large wound to left foot. Patient noted that she fell in the shower ~ 2weeks prior and sustained a small injury to the same location at that time. Developed progressive blistering, skin sloughing, and foul smelling discharge to the site. On arrival to the emergency department, BP 151/108, afebrile. Labs pertinent for Cr 2.95, alk phos 313, leukocytosis (42), ESR > 130, BNP 551. XR left foot revealed subcutaneous gas formation concerning for necrotizing fascitis. Vascular surgery consulted and patient underwent emergent left ankle disarticulation. Started on IV vanc/cefe/clindamycin. Blood cultures from 12/02 positive for GPCs/GPB, pending speciation. Wound culture positive for proteus mirabilis and streptococcus agalactiae. Antibiotics deescalated to IV cefepime. Patient transferred to the ICU following ankle disarticulation for bacteremia. Transferred to the floor on 12/04. Underwent left AKA per vascular surgery on 12/05. Active Hospital Problems Diagnosis Date Noted ??? Bacteremia due to Gram-positive bacteria 12/04/2022 Priority: Not Prioritized ??? Left foot infection 12/02/2022 Priority: Not Prioritized ??? Hypoxia 12/02/2022 Priority: Not Prioritized ??? Essential hypertension 12/02/2022 Priority: Not Prioritized ??? Swelling of left foot 12/02/2022 Priority: Not Prioritized ??? Severe recurrent major 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 psychotic features ([facility]) 08/22/2022 Priority: Not Prioritized ??? PTSD (post-traumatic stress disorder) 08/22/2022 Priority: Not Prioritized ??? Intentional overdose of drug in tablet form ([facility]) 08/21/2022 Priority: Not Prioritized Resolved Hospital Problems No resolved problems to display. 24H/S: Patient underwent L AKA yesterday, states that associated pain is controlled. 03/12 in severity. Shedid take her antidepressant this morning. Poor appetite, more interactive on exam. Breathing comfortably on 2 L NC. I have personally reviewed the MAR. Vitals: BP 118/78 Pulse 84 Temp 97.9 ??F (36.6 ??C) (Oral) Resp 20 Ht 1.702 m (5' 7 ) Wt (!) 156.9 kg (346 lb) SpO2 97% Wt Readings from Last 3 Encounters: 12/05/22 (!) 156.9 kg (346 lb) 08/21/22 128.8 kg (283 lb 14.4 oz) 04/24/10 (!) 141.1 kg (311 lb) (>99 %, Z= 2.75)* * Growth percentiles are based on CDC (Girls, 2-20 Years) data. PE: General appearance - alert, morbidly obese female, laying in bed in no distress. Appears distant, flat affect. Chest - clear to auscultation, no wheezes, rales or rhonchi, symmetric air entry Heart - normal rate, regular rhythm, normal S1, S2, no murmurs, rubs, clicks or gallops Abdomen - obese, soft, nontender, nondistended, no masses or organomegaly Neurological - alert, oriented, normal speech, no focal findings or movement disorder noted Musculoskeletal - s/p L AKA. Wound vac in place. Extremities - peripheral pulses normal, 2+ pitting edema to bilateral lower extremities to the level of the thigh. Skin - beefy red rash to groin. Significant amount of white vaginal discharge surrounding pure wickcatheter. Labs: I have personally reviewed pertinent labs. Imaging: I have personally reviewed pertinent imaging. Assessment/Plan: Leeroy Canales is a 32 year old female with PMHx of DM2, HTN, HFpEF, morbid obesity, and MDD who presented to [facility] on 12/02 for large wound to left foot, imaging concerning for necrotizing fasciitis,initially underwent L ankle disarticulation, now s/p L AKA with wound vac in place. Patient Active Problem List: Type II or unspecified type diabetes mellitus without mention of complication, not stated as uncontrolled ([facility]) Intentional overdose of drug in tablet form ([facility]) Severe recurrent major 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 psychotic features ([facility]) PTSD (post-traumatic stress disorder) CHF (congestive heart failure) ([facility]) Left foot infection Hypoxia Essential hypertension Swelling of left foot Bacteremia due to Gram-positive bacteria Wet gangrene of the left fooot Gram positive bacteremia XRay L foot on arrival with extensive soft tissue swelling & gas concerning for necrotizing fascitis. Lucency to fifth metatarsal base concerning for osteomyelitis. Underwent L ankle disarticulation with vascular surgery on 12/02 > then transferred to ICU post op Wound cultures: proteus mirabilis and streptococcus agalactiae; GPB, GPCs. Blood cultures from 12/02 - 2/2 growing GPB, 1/2 growing GPC - ID consult for bacteremia, follow recs - vascular surgery consulted, follow recs - Underwent L AKA (12/05) - Wound vac to remain in place x 3 days; site to be examined on 12/08 and managed by vascular surgery team - continue IV vancomycin as dosed per pharmacy - deescalate IV cefepime -> IV ceftriaxone 2 g q24h - repeat BCx 12/05 pending, follow - follow speciation for BCx from 12/02 - pain management: scheduled tylenol, oxycodone 5 OR 10 mg q6h PRN, dialudid 0.2 mg q5h PRN for severe breakthrough pain. - PT/OT - vital signs q4h - CBC daily Acute kidney injury Metabolic acidosis Urinary retention Unclear etiology; possibly related to ATN vs. Pre-renal in the setting of acute infection and volume overload. More likely related to volume overload/cardiorenal given improvement with IV lasix. Baseline Cr ~ 1.4 PLAN - patient with urinary retention; Fortune placed 12/05 - voiding trial on 12/08 - continue sodium bicarbonate TID - creatinine down trending; continue to follow - lasix 40 mg PO BID today; reevaluate volume status tomorrow - BMP daily - avoid nephrotoxic agents; promote adequate PO intake Hypertension HFpEF Echo 08/21/22 - LVEF 60% Home medications: furosemide 20 mg daily (reports not taking), amlodipine 10 mg daily, carvedilol 12.5 mg BID Patient with pitting edema bilaterally up to thigh. Pulm congestion on CXR. - continue amlodipine - lasix 40 mg PO BID, reevaluate tomorrow - continue to evaluate volume status/UOP - holding coreg - monitor BMP DM2, uncontrolled Hgb A1c 6.7 Home regimen: Lantus 10 U, 5 U Lispro TID - resume home lantus, lispro regimen - SSI 0-12 - accu checks Depression Patient declining all anti-depressants Two hospitalizations in the last year for SI attempt via overdose on antihypertensives Patient with flat affect on exam - continue home fluoxetine 20 mg daily Vaginal discharge Rash Patient with creamy white vaginal discharge on exam concerning for candidiasis. Additionally with beefy red appearing intertriginous rash. GC amplified probe negative - Fungal cx - BV rapid test - s/p fluconazole dose x 1 - Nystatin powder TID Inpatient Checklist LDA(s) Peripheral IV Posterior;Right Hand (Active) Placement Date/Time: 12/03/22 0000 Orientation: Posterior;Right Location: Hand IV Catheter Size: 18Gauge Number of days: 2 Procedural Site (Incision) Left Leg (Active) Date/Time: 12/03/22 0019 Orientation: Left Location: Leg Wound/Incision Description: KERLEX ROLLS SOAKED IN BETADINE, ABDS, KERLEX ROLL WRAP, GABE WRAPS Number of days: 2 DVT ppx VTE Chemical Prophylaxis Orders (From admission, onward) Ordered Start Stop 12/03/22 0727 heparin injection 7,500 Units 7,500 Units, Subcutaneous, 3 TIMES DAILY 12/03/22 0800 -- VTE Mechanical Prophylaxis Orders (From admission, onward) Ordered Start 12/03/22726 SEQUENTIAL COMPRESSION DEVICE (IMPLEMENT) CONTINUOUS Start Time: 12/03/22729 Order ID: [id number] Status: Sent 12/03/22729 PT/OT Consulted Yes Diet DIETARY NUTRITION SUPPLEMENTS DIET DIABETIC CONSIST CARB Consult(s) IP CONSULT TO WOUND NURSE IP CONSULT TO GENERAL SURGERY IP CONSULT TO NUTRITIONAL SERV IP CONSULT TO WOUND NURSE IP CONSULT TO PROSTHETICS IP CONSULT TO INFECTIOUS DISEASES PCP No primary care provider on file. Code Full Code DC Dispo Inpatient TOÑITO Espinal Pager [phone] (monitored [phone] on working days only) Date of service: 12/06/2022 Attending Physician: Branden Galindo MD UCTION GRIP * Jennifer Quinteros RN - 12/06/2022 6:44 AM CST Pt has refused her vaginal swab,says she does not want it to be done now,she says later UCTION GRIP * Radha García DO - 12/05/2022 9:53 PM CST Vascular Surgery Post Op Check 12/05/2022 Admit: 12/02/2022 6:58 PM Hospital Day: 4 POD: Day of Surgery NAME: Leeroy Canales Subjective: Patient returns from the OR after undergoing above the knee amputation on the left. Patient is tolerating a diet well without nausea/emesis. UOP is adequate (0.79cc/kg/hr). Wound vac with adequate seal. She reports some discomfort and pain at the wound vac location. Objective: BP 133/77 Pulse 87 Temp 97.4 ??F (36.3 ??C) Resp 16 Ht 1.702 m (5' 7 ) Wt (!) 156.9 kg (346 lb) SpO2 97% Urine output post op: 0.79cc/kg/hr Physical Exam: Gen: Lying in bed, NAD CV: RRR Resp: Nonlabored respirations Abd: Soft, NT/ND Ext: R AKA with wound vac over top with good seal Neuro: Moving all extremities spontaneously, no focal deficits Assessment Leeroy Canales is a 32 year old female s/p R AKA with wound vac placement . POD#0 Plan: - HDS - UOP adequate - pain well controlled - dressings - wound vac in place with good seal - overall recovering well, continue post op care Radha García DO 12/05/2022 9:53 PM UCTION GRIP * Jennifer Quinteros RN - 12/05/2022 9:29 PM CST Problem: Pain/Discomfort Goal: Patient exhibits reduced pain/discomfort as evidenced by pain scores Outcome: Progressing Problem: Fall Risk Goal: Fall risk and fall related injury risk are minimized (interventions related to the fall risk can be found in the flowsheet documentation) Outcome: Progressing Problem: Nutrient: Increased nutrient needs (specify) Goal: Total intake will meet estimated nutrient needs Outcome: Progressing UCTION GRIP * Tyrel Gilliam MD - 12/05/2022 4:12 PM CST Vascular Surgery Plan of Care Note left lower extremity wound vacuum and dressing to remain in place until post op day #3 after left above-knee amputation. will be removed by vascular surgery. -non-weight bearing left lower extremity -prosthetics consult placed Tyrel Gilliam MD Division of Vascular Surgery, PGY-3 12/05/2022 4:52 PM UCTION GRIP * Kimberly Monterroso MSW - 12/05/2022 3:27 PM CST SW notified of PT/OT recs for rehab. Patient currently off the floor in OR, will need new therapy recs following surgery. VERONIKA Barrios 12/05/2022 [phone] UCTION GRIP * Lexus Bright, PharmD - 12/05/2022 2:46 PM CST Vancomycin Per Pharmacy - Initial Note Subjective Leeroy Canales is a 32 year old female being initiated on vancomycin. Indication for anti-infective therapy: documented infection Site of anti-infective therapy: Blood and Wound. Goal trough 15-20 mcg/mL. Objective Day of treatment: 4 (transferred out of the ICU) Weight: (!) 156.9 kg (346 lb) Estimated Creatinine Clearance: 48.5 mL/min (based on SCr of 2.67 mg/dL) Ht Readings from Last 1 Encounters: 12/02/22 5' 7 (1.702 m) Recent Labs Component Name 12/05/22 1006 12/04/22 1605 12/04/22 0358 12/03/22 2313 12/03/22 1857 CREATININE 2.67* 3.31* 3.24* - - WBC 18.6* - 24.8* - 35.3* VANCORNDM 19.6 - 18.8 - 20.8 - = values in this interval not displayed. Vancomycin Administrations from JAN (last 72 hours) Date/Time Action Medication Dose Rate 12/04/22 1016 $ New Bag/Syringe vancomycin (Vancocin) 1,250 mg in 250 mL NaCl IVPB Premix 1,250 mg 200 mL/hr 12/02/22 2113 $ New Bag/Syringe vancomycin (Vancocin) 2,500 mg in 500 mL NaCl IVPB Premix 2,500 mg 200 mL/hr Assessment Target trough: 15-20 mcg/mL The patient transferred out of the ICU on intermittent dosing. She last received a dose of 1250 mg x 1 yesterday, 12/04, at 1016. The vancomycin serum random level reported above (19.6 mcg/mL) was drawn 24 hours after the previous dose was administered. Renal function based on S Cr is unstable at this time. SCr down to 2.67 mg/dL today from 3.31 mg/dLyesterday. Plan Dosing: Will give another one time dose of vancomycin 1250 mg now. Monitoring Plan: Will obtain a random vancomycin level about 24 hours after the dose given today and re-dose if appropriate. A random vancomycin level is ordered to be drawn tomorrow, 12/06, at 1500. Will continue to monitor patient's renal function. Please contact the [facility] pharmacy department ([phone]) with any questions. Lexus Bright, [place] 12/05/2022 2:25 PM Resources: Vancomycin Protocol UCTION GRIP * Leigh Meek, OT - 12/05/2022 2:36 PM CST [facility] Department of Physical Medicine & Rehabilitation Progress Note Patient: [facility] Record Number: [id number] Date of : 1990 Age: [age] year old 12/05/22 1400 Therapy on Hold Therapy on Hold Chart Reviewed;Surgery;New Order Required for Therapy UCTION GRIP * Amie Rodriguez RN - 12/05/2022 1:47 PM CST Very painful to patient with cleaning, has piercing . UCTION GRIP * Lee Gil, PT - 12/05/2022 1:23 PM CST [facility] Department of Physical Medicine & Rehabilitation Progress Note Patient: Leeroy Canales Med Record Number: [id number] Date of : 1990 Age: [age] year old 12/05/22 1323 Therapy on Hold Therapy on Hold Surgery;New Order Required for Therapy;Chart Reviewed Pt to OR under GA. Per PMR protocol new PT orders are required for continued treatment. UCTION GRIP * Román Burger RN - 12/05/2022 11:12 AM CST Problem: Fall Risk Goal: Fall risk and fall related injury risk are minimized (interventions related to the fall risk can be found in the flowsheet documentation) Outcome: Progressing Problem: Nutrient: Increased nutrient needs (specify) Goal: Total intake will meet estimated nutrient needs Outcome: Progressing UCTION GRIP * Keila Reynaga, DO - 12/05/2022 7:31 AM CST Vascular Surgery Progress Note Name: Leeroy Canales Hospital Day: 3 HPI: 32 year old female with history of uncontrolled T2DM, obesity, HTN, HFpEF, severe recurrent depression presenting with blistering and foul odor from her left foot. She reports minimal pain to the foot with palpation, however reports pain with ambulation on the left. Patients mother reports that shefell in the shower ~2 weeks ago and has had a small wound since then. Her sister reports that the wound acutely worsened over the past 3 days. They noted a foul smell and draining clear fluid and brought the patient to the ED. Patient and her family deny problems with wound healing in the past. Tx Hx: 12/02/22 - Left ankle disarticulation Subjective: No acute issues Feels well Ready for surgery today Objective: BP 133/71 Pulse 95 Temp 98.6 ??F (37 ??C) (Oral) Resp 16 Ht 1.702 m (5' 7 ) Wt (!) 156.9 kg (346 lb) SpO2 92% Temp (24hrs), Av.7 ??F (36.5 ??C), Min:97.1 ??F (36.2 ??C), Max:98.6 ??F (37 ??C) Intake/Output Summary (Last 24 hours) at 12/05/2022 0731 Last data filed at 12/04/2022 1800 Gross per 24 hour Intake 350 ml Output 700 ml Net -350 ml Exam: Gen: NAD; AOx4 CV: regular rate and rhythm Pulm: non-laboured breathing on room air Abdomen: soft; non-tender Extremities: left ankle disarticulation with serous strike through Meds: Current Facility-Administered Medications Medication ??? 0.9% NaCl injection 3 mL And ??? 0.9% NaCl injection 1-10 mL ??? acetaminophen (Tylenol) tablet 500 mg ??? amLODIPine (Norvasc) tablet 10 mg ??? cefepime (Maxipime) 2,000 mg in 0.9% NaCl IV 50 mL IVPB ??? FLUoxetine (PROzac) capsule 20 mg ??? heparin injection 7,500 Units ??? HYDROmorphone (Dilaudid) injection 0.2 mg ??? insulin glargine (Lantus) pen 8 Units ??? insulin lispro (HumaLOG;ADMelog) 100 UNIT/ML pen 0-12 Units ??? oxyCODONE (immediate release) (Roxicodone) tablet 5 mg Or ??? oxyCODONE (immediate release) (Roxicodone) tablet 10 mg ??? sodium bicarbonate tablet 650 mg Labs: Recent Labs Component Name 12/04/22 0358 WBC 24.8* HGB 8.2* HCT 28.0* Recent Labs Component Name 12/04/22 1605 NA 141 CL 109* CO2 16* BUN 36* CREATININE 3.31* No results for input(s): PT, PTT, INR in the last 10635 hours. 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 recovering adequately in icu. - Will proceed to OR today for L AKA - Continue NPO until OR complete Keila Reynaga DO Vascular Surgery Fellow 12/05/2022 7:31 AM UCTION GRIP * Leigh Lauren PA - 12/05/2022 7:31 AM CST Hospitalist Daily Progress Note Name: Leeroy Canales Age: [age] year old Room: OR/OR Date Admitted: 12/02/2022 Disposition: Inpatient Total duration of encounter: 3 days Hospital Course: Leeroy Canales is a 32 year old female with PMHx of DM2, HTN, HFpEF, morbid obesity, and MDD who presented to [facility] on 12/02 for large wound to left foot. Patient noted that she fell in the shower ~ 2weeks prior and sustained a small injury to the same location at that time. Developed progressive blistering, skin sloughing, and foul smelling discharge to the site. On arrival to the emergency department, BP 151/108, afebrile. Labs pertinent for Cr 2.95, alk phos 313, leukocytosis (42), ESR > 130, BNP 551. XR left foot revealed subcutaneous gas formation concerning for necrotizing fascitis. Vascular surgery consulted and patient underwent emergent left ankle disarticulation. Started on IV vanc/cefe/clindamycin. Blood cultures from 12/02 positive for GPCs/GPB, pending speciation. Wound culture positive for proteus mirabilis and streptococcus agalactiae. Antibiotics deescalated to IV cefepime. Patient transferred to the ICU following ankle disarticulation for bacteremia. Transferred to the floor on 12/04. Plan for left AKA per vascular surgery on 12/05. Active Hospital Problems Diagnosis Date Noted ??? Bacteremia due to Gram-positive bacteria 12/04/2022 Priority: Not Prioritized ??? Left foot infection 12/02/2022 Priority: Not Prioritized ??? Hypoxia 12/02/2022 Priority: Not Prioritized ??? Essential hypertension 12/02/2022 Priority: Not Prioritized ??? Swelling of left foot 12/02/2022 Priority: Not Prioritized ??? Severe recurrent major 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 psychotic features ([facility]) 08/22/2022 Priority: Not Prioritized ??? PTSD (post-traumatic stress disorder) 08/22/2022 Priority: Not Prioritized ??? Intentional overdose of drug in tablet form ([facility]) 08/21/2022 Priority: Not Prioritized Resolved Hospital Problems No resolved problems to display. 24H/S: I spoke with and examined Ms. Canales while she was resting in bed. Patient states that she does nottake any medications for depression at home and therefore will not take fluoxetine. Has been evaluated by psychiatry at some point, but that was when she was a teenager, she denies ever taking an anti depressant in the past. Patient also notably has significant vaginal discharge on exam, will obtaincultures; G/C; BV probe. Urinary retention on bladder scan x 2 in the last 24 hours. As patient will be going to OR at ~ 12 PM today, will insert fortune catheter at this time. Patient agreeable. I have personally reviewed the JAN. Vitals: BP 141/87 Pulse 86 Temp 98 ??F (36.7 ??C) (Oral) Resp 22 Ht 1.702 m (5' 7 ) Wt (!) 156.9 kg (346 lb) SpO2 99% Wt Readings from Last 3 Encounters: 12/05/22 (!) 156.9 kg (346 lb) 08/21/22 128.8 kg (283 lb 14.4 oz) 04/24/10 (!) 141.1 kg (311 lb) (>99 %, Z= 2.75)* * Growth percentiles are based on [facility] (Girls, 2-20 Years) data. PE: General appearance - alert, morbidly obese female, laying in bed in no distress. Appears distant, flat affect. Chest - clear to auscultation, no wheezes, rales or rhonchi, symmetric air entry Heart - normal rate, regular rhythm, normal S1, S2, no murmurs, rubs, clicks or gallops Abdomen - obese, soft, nontender, nondistended, no masses or organomegaly Neurological - alert, oriented, normal speech, no focal findings or movement disorder noted Musculoskeletal - s/p L ankle disarticulation. GABE wrap and dressing in place. Extremities - peripheral pulses normal, 2+ pitting edema to bilateral lower extremities to the level of the thigh. Skin - beefy red rash to groin. Significant amount of white vaginal discharge surrounding pure wickcatheter. Labs: I have personally reviewed pertinent labs. Imaging: I have personally reviewed pertinent imaging. Assessment/Plan: Patient Active Problem List: Type II or unspecified type diabetes mellitus without mention of complication, not stated as uncontrolled ([facility]) Intentional overdose of drug in tablet form ([facility]) Severe recurrent major 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 psychotic features ([facility]) PTSD (post-traumatic stress disorder) CHF (congestive heart failure) (CMS/HCC) Left foot infection Hypoxia Essential hypertension Swelling of left foot Bacteremia due to Gram-positive bacteria Wet gangrene of the left fooot Gram positive bacteremia XRay L foot on arrival with extensive soft tissue swelling & gas concerning for necrotizing fascitis. Lucency to fifth metatarsal base concerning for osteomyelitis. Underwent L ankle disarticulation with vascular surgery on 12/02 > then transferred to ICU post op Wound cultures: proteus mirabilis and streptococcus agalactiae; GPB, GPCs. Blood cultures from 12/02 - 12/05 growing GPB, 1/2 growing GPC - vascular surgery consulted, follow recs - L AKA scheduled for today (12/05); NPO until procedure - continue IV cefepime, IV vancomycin as dosed per pharmacy - repeat blood cultures - follow speciation for BCx from 12/02; consider consulting ID pending speciation - pain management: scheduled tylenol, oxycodone 5 OR 10 mg q6h PRN, dialudid 0.2 mg q5h PRN for severe breakthrough pain. - vital signs q4h - CBC daily Acute kidney injury Metabolic acidosis Unclear etiology; possibly related to ATN vs. Pre-renal in the setting of acute infection and volume overload. Baseline Cr ~ 1.4 - continue sodium bicarbonate TID - creatinine down trending; 3.31 > 2.67 today s/p IV lasix 60 mg - lasix 40 mg PO today, reevaluate tomorrow - patient with urinary retention today; Fortune for procedure. Then bladder scans and PRN straight cath. - BMP daily - avoid nephrotoxic agents; promote adequate PO intake Hypertension HFpEF Echo 08/21/22 - LVEF 60% Home medications: furosemide 20 mg daily (reports not taking), amlodipine 10 mg daily, carvedilol 12.5 mg BID Patient with pitting edema bilaterally up to thigh. Pulm congestion on CXR. Received IV lasix 60 mg on 12/04. - continue amlodipine - lasix 40 mg PO today, reevaluate tomorrow - continue to evaluate volume status/UOP - holding coreg - monitor BMP DM2, uncontrolled Hgb A1c 6.7 Home regimen: Lantus 10 U, 5 U Lispro TID - resume home lantus, lispro regimen - SSI 0-12 - accu checks Depression Patient declining all anti-depressants Two hospitalizations in the last year for SI attempt via overdose on antihypertensives Patient with flat affect on exam - continue home fluoxetine 20 mg daily; will discuss importance of compliance with patient. Vaginal discharge Rash Patient with creamy white vaginal discharge on exam concerning for candidiasis. Additionally with beefy red appearing intertriginous rash. - GC amplified probe - Fungal cx - BV rapid test - Will give fluconazole dose x 1 - Nystatin powder TID Inpatient Checklist LDA(s) Peripheral IV Posterior;Right Hand (Active) Placement Date/Time: 12/03/22 0000 Orientation: Posterior;Right Location: Hand IV Catheter Size: 18Gauge Number of days: 2 Procedural Site (Incision) Left Leg (Active) Date/Time: 12/03/2218 Orientation: Left Location: Leg Wound/Incision Description: KERLEX ROLLS SOAKED IN BETADINE, ABDS, KERLEX ROLL WRAP, GABE WRAPS Number of days: 2 DVT ppx VTE Chemical Prophylaxis Orders (From admission, onward) Ordered Start Stop 12/03/22726 heparin injection 7,500 Units 7,500 Units, Subcutaneous, 3 TIMES DAILY 12/03/22 0800 -- VTE Mechanical Prophylaxis Orders (From admission, onward) Ordered Start 12/03/22726 SEQUENTIAL COMPRESSION DEVICE (IMPLEMENT) CONTINUOUS Start Time: 12/03/22729 Order ID: [id number] Status: Sent 12/03/22729 PT/OT Consulted when able; OR for AKA today Diet DIETARY NUTRITION SUPPLEMENTS DIET DIABETIC CONSIST CARB Consult(s) IP CONSULT TO WOUND NURSE IP CONSULT TO GENERAL SURGERY IP CONSULT TO NUTRITIONAL SERV IP CONSULT TO WOUND NURSE IP CONSULT TO PROSTHETICS PCP No primary care provider on file. Code Full Code DC Dispo Inpatient TOÑITO Espinal Pager [phone] (monitored [phone] on working days only) Date of service: 12/05/2022 Attending Physician: Rafa Patel MD UCTION GRIP * Joy Rocha RN - 12/05/2022 5:59 AM CST Pt has not voided during the shift. Per orders bladder scans performed multiple times. Last scan value was 452. Per order straight cath for >500. Notified MD and was instructed to give her 2 more hours and re scan if pt does not void. If pt doesn't void okay for fortune. Will pass on to day shift RN. UCTION GRIP * Joy Rocha RN - 12/05/2022 5:12 AM CST Problem: Pain/Discomfort Goal: Patient exhibits reduced pain/discomfort [...] will meet estimated nutrient needs Outcome: Progressing UCTION GRIP * Joy Rocha RN - 12/05/2022 3:58 AM CST Bladder scanned pt per order. Volume of 430 mls noted in bladder. Per order will re scan in 2 hours UCTION GRIP * Joy Rocha RN - 12/05/2022 3:14 AM CST Pt BG was 368. MD notified and orders given for q4 BG checks and insulin q4. Insulin administered per MAR UCTION GRIP * Tyrel Gilliam MD - 12/04/2022 8:50 PM CST Vascular Surgery Plan of Care Note patient scheduled for left above-knee amputation for 12/05. -to operating room for left above-knee amputation -npo@mn; sips with meds -iv maintenance fluids -consent to be obtained -site to be marked -type and screen -chg bath Tyrel Gilliam MD Division of Vascular Surgery, PGY-3 12/04/2022 8:51 PM UCTION GRIP * Rafa Patel MD - 12/04/2022 4:36 PM CST GENERAL INTERNAL MEDICINE Progress note- Transfer accept Note 12/04/2022 4:36 PM Admit Date: 12/02/2022 Subjective: Ms. Canales reports that she generally feels well this evening. She reports that her pain is well controlled with her current analgesic regimen. She does not endorse any new concerns at this time; no fevers, chills, angina, or dyspnea. No acute events reported since transfer out of the ICU per nursing staff. Medications: MAR reviewed Physical Examination: BP 90/58 Pulse 81 Temp 97.4 ??F (36.3 ??C) (Oral) Resp 14 Ht 1.702 m (5' 7 ) Wt (!) 148.5kg (327 lb 6.1 oz) SpO2 90% GEN: NAD, sitting up comfortably in a chair at bedside. RESP: Clear to auscultation bilaterally. No wheezing or crackles noted. CARDIAC: Regular rate and rhythm. No murmurs,rubs, or gallops noted. GI: Abdomen soft, non tender, and non-distended,. Bowel sounds noted. NEURO: Alert and interactive Labs: Relevant labs reviewed, discussed below Radiology: Relevant imaging reviewed, discussed below Assessment: Leeroy Canales is a 32 year old female who presented on December 02 with drainage from her left foot was found to have wet gangrene. She was started on spectrum antibiotics and underwent surgical intervention with vascular surgery. She was initially managed in the intensive care unit but subsequently stabilized and transferred to the general medical floor on December 04. Plan: # L foot gangrene # Gram positive bacteremia - Ms. Canales underwent ankle disarticulation with vascular surgery at the time of presentation on December 02. Vascular surgery is considering further surgical intervention. We appreciate their assistance in developing a plan of care. -blood culture from December 02 growing Gram-positive bacilli and 1 of 2 sets. We will await speciation and consider repeat culture if organism is not suggestive of contaminant. - We will continue with cefepime in the interim. # Acute renal failure # Metabolic acidosis - Unclear etiology, although suspicion from ICU was it may be related to ATN setting of her acute infection or volume overload. Will follow for improvement with diuresis as started while in the intensive care unit. - Suspect acidosis secondary to acute renal failure. She treatment sodium bicarb tablets and followfor improvement. - We will consider consultation with nephrology should her renal failure continue to worsen # Hypertension # Congestive heart failure with preserved ejection fraction - Continue treatment with amlodipine. Will provide further doses of as needed diuresis as noted above # Diabetes mellitus - We will continue treatment insulin glargine provide additional sliding scale insulin as needed # Depression - Continue floxetine DVT PPx: Heparin prophylaxis Rafa Patel MD General Internal Medicine 12/04/2022 4:36 PM UCTION GRIP * Neelam Weldon RN - 12/04/2022 2:33 PM CST Problem: Pain/Discomfort Goal: Patient exhibits reduced pain/discomfort [...] Problem: Balance Goal: LTG - Patient will maintain balance to allow for safe mobility Outcome: Progressing UCTION GRIP * Eunice Scales RN - 12/04/2022 12:30 PM CST Patient transferred to room 613. All patient belongings with patient. Patient family notified. Report given to RN. All questions answered. UCTION GRIP * Eunice Scales RN - 12/04/2022 10:58 AM CST Problem: Pain/Discomfort Goal: Patient exhibits reduced pain/discomfort [...] will meet estimated nutrient needs Outcome: Progressing UCTION GRIP * Analy Pham, PT - 12/04/2022 9:50 AM CST [facility] Physical Therapy Initial Evaluation Note Patient: Leeroy Canales Med Record Number: [id number] Date of : 1990 Age: [age] year old Co-Eval with OT 2/2 Unknown Level of Assist PPE worn by staff: gloves;mask - procedural;gown - disposable PPE worn by patient: socks - clean;gown - patient, clean Discharge Recommendation: Patient will benefit from intense 3 hour per day multidisciplinary inpatient therapies due to decreased independence s/p emergent L ankle disarticulation. In addition to the 1:1 evaluation of the patient, additional eval time was spent completing the chart review prior to the assessment, completing the multidisciplinary plan of care and education plan post evaluation and communicating results of the eval to other treatment team members. Nurse and OT contacted regarding patient status and/or discharge plan. Physician Orders: Evaluation and Treat PRECAUTIONS: Weight Bearing Status: (NWB LLE) Activity Level: Up ad rebekah (with AD) Other Precautions: Fall DIAGNOSIS: Patient Active Problem List: Type II or unspecified type diabetes mellitus without mention of complication, not stated as uncontrolled (CMS/HCC) Intentional overdose of drug in tablet form (CMS/HCC) Severe recurrent major 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 psychotic features (CMS/HCC) PTSD (post-traumatic stress disorder) CHF (congestive heart failure) (CMS/HCC) Left foot infection Hypoxia Essential hypertension Swelling of left foot Past Medical History: Diagnosis Date ??? Type 2 diabetes mellitus without complications (CMS/HCC) SUBJECTIVE: Subjective: Patient agreeable to PT evaluation. PATIENT GOALS: Patient's Primary Concern: To improve functional mobility Home Situation: Type of Residence: Private Residence Lives with:: Sister Steps to Enter: 5 Handrails: Outdoor Home Structure: One Story Primary Bathroom: First Floor Bathroom : Tub/Shower Combo Equipment at Home: None Prior Level of Functioning: Mobility: Ambulate-In Home Fallen Within 6 Mos: 2 (fall in the shower, fall tripping up the steps) Have Help at Home?: Yes, there is help at home now Who assists you at home?: Friends/Family (although sister works two jobs) Oxygen at Home: No Activity at Home: Sedentary Vision: Corrected with glasses Hearing Exceptions: No impairment Who manages medications?: Self and sister Pain Assessment: Pain Rating Score #: (Pt denies pain but reports discomfort in bottom from laying in bed) Pain Location : Buttocks Follow-up for pain: No follow-up for pain indicated and patient agreed to proceed with treatment OBJECTIVE: At start of therapy session, patient found in bed. General Appearance: 32 y.o. male semi-reclined in bed; NAD LDAs: IV's: Peripheral line, Telemetry and Oxygen Nasal Cannula Edema: significant edema noted in right lower extremity and significant edema noted in left lower extremity Vitals: (*Assess the 3 levels of oxygen saturations both for room air and 02 unless rest on room air is 88% or less). Rest BP: 113/71 (92) HR: 83 Sp02 Sp02 99% 95% 1 L O2 Room Air Ex/Gait/Activity Without 02 BP: 125/88 (104) HR: 90 Sp02 89-91% Room Air Post Activity BP: HR: 80 Sp02 92% Room Air Observations: Vitals continuously monitored via ICU monitoring. Patient found on 1 L O2, but able to maintain SpO2 >88% on RA at rest and with all mobility. No signs or symptoms of distress with activity/positional change. Patient denying SOB/lightheadedness/dizziness throughout session. Mental Status/Cognition: Level of Consciousness-Adult: Alert Orientation Level: Oriented X4 Cognition: Attention/concentration-normal for age;Processing-Appropriate;Follows Commands-Consistent;Safety awareness-decreased Attention Span: Appears intact Memory: Appears intact Following Commands: Follows all commands and directions without difficulty Safety Judgement: Decreased awareness of need for assistance ROM: RLE: Hip flexion limited d/t increased body habitus; knee/ankle AROM WFL LLE: Hip flexion limited d/t increased body habitus; knee AROM WFL Strength: RLE LLE Hip Flexion 2/5 2/5 Knee Extension 4/5 4/5 Knee Flexion 4/5 4/5 Ankle Dorsiflexion 4/5 NT Ankle Plantarflexion 4/5 NT Tone: RLE: no abnormal tone noted LLE: no abnormal tone noted Coordination: RLE: not tested LLE: not tested Sensation: RLE: intact, no complaints of numbness or tingling LLE: intact, no complaints of numbness or tingling Mobility: A gait belt and non-slip socks were used for all out of bed activity this date. Bed Mobility: Rolling: Maximal Assistance to Right;Maximal Assistance to Left;Requires Verbal Cues for Safety;Requires Verbal Cues for Technique (to change linens and place lift sling) Supine to Sit: Moderate Assistance;Requires Verbal Cues for Safety;Requires Verbal Cues for Technique (with increased time and use of bed rails) with HOB in semi-fowlers position Sit to Supine: Maximum Assistance (X 2-3 d/t pt unable to scoot back into safe position sitting EOBpost-stand, pt returned to supine) Transfers: Sit to Stand: Maximum Assistance;X 2;Requires Verbal Cues for Safety;Requires Verbal Cues for Technique (x 2 attempts; pt able to clear the bed but unable to achieve full upright posturing; pt with poor maintenance of NWB LLE (on second attempt RN assistin to elevate LLE); use of rashid wheeled walker for standing transfers) Stand to Sit: Maximum Assistance;X 2 Bed to Chair: Total Assistance (via ceiling lift) Type of Transfer: Mechanical Lift Gait: Weight Bearing Status: (NWB LLE) Distance Ambulated: 0 FEET (Pt unable to achieve full upright standing this date.) Balance: Balance Scales/Tests Used: Sitting: Static/Dynamic;Standing: Static/Dynamic Sitting - Static: Fair Sitting - Dynamic: Fair - Standing - Static: Poor;With Both Upper Extremity's Support Standing - Dynamic: Not tested ACTIVITY TOLERANCE: Patient's activity tolerance: Fair TREATMENT/INTERVENTIONS: evaluation, ROM, strengthening exercises, bed mobility training, transfer training, balance activities and monitoring of vitals EDUCATION: While performing PT, Patient was instructed in:functional mobility training, weight bearing status, energy conservation, safety awareness/fall precautions , use of adaptive equipment, discharge planning, use [...] mobility with minimal assist Patient will transfer sit to/from stand with maximal assist and X 1 Patient will transfer bed to/from chair with maximal assist and X 1 Fdc Goal(s): Patient to discharge to appropriate next level of inpatient care. Equipment Issued: gait belt Plan: Plan: Gait training Transfer training Assistive device training Endurance training Bed mobility training Balance training Energy conservation techniques Safety awareness If patient is discharged from the facility, this note serves as a discharge summary if further physical therapy visits did not occur. Refer to filed flowsheet for further details. Following therapy session, patient left in patient bedside chair, with call light within reach, with RN in room, and RN reporting patient does not require chair alarm. Educated on use of call light for patient safety, patient verbalized understanding and was in agreement. All lines, monitors, IV's, equipment in place and intact pre and post visit. Patient was in no discomfort and had no additional needs at conclusion of PT session. UCTION GRIP * Anjelica Laird, OT - 12/04/2022 9:47 AM CST [facility] Physical Medicine and Rehabilitation Occupational Therapy Initial Evaluation Note Patient: Leeroy Canales Med Record Number: [id number] Date of : 1990 Age: [age] year old PPE worn by staff: gloves;mask - procedural;gown - disposable PPE worn by patient: socks - clean;gown - patient, clean Discharge Recommendation: Patient will benefit from intense 3 hour per day multidisciplinary inpatient therapies due to decreased ability to complete functional transfers and ADLs s/p emergent L ankle disarticulation. In addition to the 1:1 evaluation of the patient, additional eval time was spent completing the chart review prior to the assessment, completing the multidisciplinary plan of care and education plan post evaluation and communicating results of the eval to other treatment team members. Nurse and Physical Therapy contacted regarding patient status and/or discharge plan. Physician Orders: Evaluation and Treat Activity Level: ambulate, NWB LLE PRECAUTIONS: DIAGNOSIS: Patient Active Problem List: Type II or unspecified type diabetes mellitus without mention of complication, not stated as uncontrolled ([facility]) Intentional overdose of drug in tablet form (CMS/[facility]) Severe recurrent major 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 psychotic features ([facility]) PTSD (post-traumatic stress disorder) CHF (congestive heart failure) ([facility]) Left foot infection Hypoxia Essential hypertension Swelling of left foot Past Medical History: Diagnosis Date ??? Type 2 diabetes mellitus without complications (CMS/HCC) SUBJECTIVE: Subjective: Pt agreeable to therapy. PATIENT GOALS: Home Situation: Type of Residence: Private Residence Lives with:: Sister Steps to Enter: 5 Handrails: Outdoor Home Structure: One Story Primary Bathroom: First Floor Bathroom : Tub/Shower Combo Equipment at Home: None Prior Level of Functioning: Mobility: Ambulate-In Home Fallen Within 6 Mos: 2 (fall in the shower, fall tripping up the steps) Have Help at Home?: Yes, there is help at home now Who assists you at home?: Friends/Family (although sister works two jobs) Oxygen at Home: No Activity at Home: Sedentary Vision: Corrected with glasses Hearing Exceptions: No impairment Who manages medications?: Self and sister Pain Assessment: Pain Rating Score #: (Pt denies pain but reports discomfort in bottom from laying in bed) Pain Location : Buttocks Follow-up for pain: No follow-up for pain indicated and patient agreed to proceed with treatment OBJECTIVE: At start of therapy session, patient found in bed and with bed alarm on General Appearance: alert, NAD LDA: IV's: Peripheral line and Telemetry Edema: Edema noted in bilateral lower extremities Vitals: (*Assess the 3 levels of oxygen saturations both for room air and 02 unless rest on room air is 88% or less). Rest BP: 113/71 (92) HR: 83 Sp02 ?? Sp02 99% ?? 95% 1 L O2 ?? Room Air ?? Ex/Gait/Activity Without 02 BP: 125/88 (104) HR: 90 Sp02 89-91% Room Air Post Activity BP: ?? HR: 80 Sp02 ?? 92% Room Air Observations: Vitals continuously monitored via ICU monitoring. Patient found on 1 L O2, but able to maintain SpO2 >88% on RA at rest and with all mobility. No signs or symptoms of distress with activity/positional change. Patient denying SOB/lightheadedness/dizziness throughout session. Mental Status/Cognition: Level of Consciousness-Adult: Alert Orientation Level: Oriented X4 Cognition: Attention/concentration-normal for age;Processing-Appropriate;Follows Commands-Consistent;Safety awareness-decreased Attention Span: Appears intact Memory: Appears intact Following Commands: Follows all commands and directions without difficulty Safety Judgement: Decreased awareness of need for assistance Awareness of Errors: Decreased awareness of deficits Problem Solving: Assistance required to identify errors made UE ROM: RUE: AROM WFL LUE: AROM WFL Strength: RUE: deficits noted, generalized weakness, 3+/5 LUE: deficits noted, generalized weakness, 3+/5 UE Tone RUE: no abnormal tone noted LUE: no abnormal tone noted Coordination: intact serial opposition for bilateral hands UE Proprioception RUE: WFL LUE: WFL UE Sensation RUE: intact LUE: intact Perception: Inattention/Neglect: Appears intact Initiation: Appears intact Motor Planning: Appears intact Visual/Motor Tracking: Able to track stimulus in all quads w/o difficulty Acuity: Other (Comment) (wearing glasses, but reports vision is still blurry. Per pt description, she likely needs new prescription.) Mobility: A gait belt and non-slip socks were used for all out of bed activity this date. Bed Mobility: Rolling: Maximal Assistance to Right;Maximal Assistance to Left;Requires Verbal Cues for Safety;Requires Verbal Cues for Technique (to change linens and place lift sling) Supine to Sit: Moderate Assistance;Requires Verbal Cues for Safety;Requires Verbal Cues for Technique (with increased time and use of bed rails) with HOB in semi-fowlers position Sit to Supine: Maximum Assistance (X 2-3 d/t pt unable to scoot back into safe position sitting EOBpost-stand, pt returned to supine) Transfers: Sit to Stand: Maximum Assistance;X 2;Requires Verbal Cues for Safety;Requires Verbal Cues for Technique (x 2 attempts; pt able to clear the bed but unable to achieve full upright posturing; pt with poor maintenance of NWB LLE (on second attempt RN assistin to elevate LLE); use of rashid wheeled walker for standing transfers) Stand to Sit: Maximum Assistance;X 2 Bed to Chair: Total Assistance (via ceiling lift) Type of Transfer: Mechanical Lift Functional Ambulation: Functional mobility - unable to progress Balance: Balance Scales/Tests Used: Sitting: Static/Dynamic;Standing: Static/Dynamic Sitting - Static: Fair Sitting - Dynamic: Fair - Standing - Static: Poor;With Both Upper Extremity's Support Standing - Dynamic: Not tested Activities of Daily Living Oral Facial Hygiene: Activity Does Not Occur (continue to assess) Lower Body Dressing: Maximal Assistance (don sock) ACTIVITY TOLERANCE: Patient's activity tolerance: fair. TREATMENT / EDUCATION / INTERVENTIONS: While performing OT, Patient was instructed in:functional mobility training, weight bearing status, safety awareness/fall precautions Presented to patient who demonstrates Good understanding of instructions given. INFORMED CONSENT TO TREATMENT: Plan of care including recommended therapy, goals and frequency, discussed with patient who understands and agrees to proceed. ASSESSMENT: Functional performance limited due to: limited activities of daily living, pain, decreased functional mobility, decreased functional balance and decreased endurance and activity tolerance. Patient continues to benefit from skilled Occupational Therapy to achieve the following functional goals. Short Term Goals: Goal Formation With patient Patient will perform grooming at edge of bed and with minimal assist Patient will transfer to bedside commode with moderate assist and while maintaining WB precautions Patient will perform supine to/from sit with moderate assist Patient will perform bed to chair with moderate assist and while maintaining WB precautions Tomato Pulper Operator Goal(s): Patient to discharge to appropriate next level of inpatient care. Plan: Plan: ADL training Adaptive equipment training Functional transfer training Functional balance training Endurance training Bed mobility training Safety awareness If patient is discharged from the facility, this note serves as a discharge summary if further occupational therapy visits did not occur. Refer to filed flowsheet for further details. Following therapy session, patient left in patient bedside chair, with call light within reach, with RNEunice, RN declined need for chair alarm . UCTION GRIP * Willard Estrella MD - 12/04/2022 8:10 AM CST MICU Progress Note 12/04/2022 12:15 PM Patient: Leeroy Canales (:1990) Room: [facility] Admit Date: 12/02/2022. Hospital Day: 2 CC: Wet gangrene Hospital Course: Leeroy Canales is a 32 year old female with a history of DM2, HTN, HFpEF, morbid obesity, and recurrent depression who presented on 12/02 for a large wound of the left foot. She had a small injury and noted wound 2 weeks prior. She's since had progressive blistering, skin sloughing, and foul-smelling drainage. On arrival, she was hemodynamically stable. Labs were notable for creatinine 2.95 (baseline 1.4), WBC 43, ESR >130, CRP 25, BNP 551. X-ray of the left foot showed gas in the subcutaneous tissue of the left foot. Vascular surgery took the patient to the OR emergently for left ankle disarticulation. She was started on Vancomycin, Cefepime, and Clindamycin. Post-operatively, clindamycin was discontinued. Interval History: -After IV Lasix 40mg, patient had 600cc urine by straight cath -Evening BMP with decreased bicarb, no additional lasix given. Patient had no UOP overnight, AM bladder scan showed 32 mL. -Will re-dose lasix at 60mg IV this morning, plan to reassess volume status/UOP in afternoon and consider another dose Objective: Vitals: 12/04/22 0800 12/04/22 0900 12/04/22 1000 12/04/22 1100 BP: 115/74 130/90 125/88 116/96 Pulse: 77 87 87 84 Resp: 13 (!) 5 18 (!) 6 Temp: 97.6 ??F (36.4 ??C) SpO2: 95% 97% 90% 93% Weight: Height: Intake/Output Summary (Last 24 hours) at 12/04/2022 1215 Last data filed at 12/04/2022 1145 Gross per 24 hour Intake 974.29 ml Output 600 ml Net 374.29 ml Physical Exam General - NAD, afebrile, non-cachectic HEENT - NC/AT, clear conjunctivae, throat without erythema or exudate, moist mucous membranes Chest - Crackles bilateral lower lobes; no wheezing, normal respiratory effort CV - RRR no murmurs, rubs, or gallops Abdomen - Soft, NT/ND, +BS, no organomegaly Musculoskeletal - Moves all four extremities Extremities - No clubbing, cyanosis. BLE pitting edema 2-3+ to knees. L ankle disarticulation wrapped in bandages, draining. Skin - No rashes, lesions or jaundice Neurologic - A&O x 3, no focal neurological deficits Psych - Appropriate mood and affect Labs: CBC: Recent Labs Component Name 12/04/22 0358 12/03/22 1857 12/03/22 0943 12/03/22 0242 WBC 24.8* 35.3* - 37.1* HGB 8.2* 8.2* 8.2* 6.8* HCT 28.0* 26.0* - 22.3* BMP: Recent Labs Component Name 12/04/22 0358 12/03/22 2313 12/03/22 1707 12/03/22 0242 12/02/22195408/25/225 NA 137 134* 137 134* - - CL 108* 106 107 106 - - CO2 17* 18* 15* 18* - 26 BUN 35* 33* 31* 30* - 13 CREATININE 3.24* 3.18* 3.14* 2.91* - 1.58* CALCIUM 7.3* 7.3* 7.5* 7.3* - 7.9* PHOS 5.1 - - 4.4 - 4.0 - = values in this interval not displayed. Hepatic: Recent Labs Component Name 12/02/22195408/21/22 0847 ALT 38 11 AST 47* 5 TBILI 1.9* - PROT 6.0 - ALB 0.8* - ALKPHOS 313* 87 Cardiac Markers: Recent Labs Component Name 12/02/221954 TROPONINI 0.023 Micro: -Blood (12/02): 11/04 GPB -Wound (12/03): GPC, GPB Imaging: Imaging reviewed. Assessment: Intentional overdose of drug in tablet form (CMS/HCC) POA: Unknown Severe recurrent major 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 psychotic features (CMS/HCC) POA: Unknown PTSD (post-traumatic stress disorder) POA: Unknown Left foot infection POA: Unknown Hypoxia POA: Unknown Essential hypertension POA: Unknown Swelling of left foot POA: Unknown TRANSFER CHECKLIST: Pertinent comorbidities/PMH: HTN, HFpEF, DM2 Home meds being held: Carvedilol, PO furosemide Intubation/NIPPV days: N/A Pressor agents and days: N/A ABX indications: Vancomycin and Cefepime for wet gangrene Consult teams past & present: Vascular Pending work up: Left BKA Things to watch: Renal function, DM2, Fluid status To address prior to d/c: Antibiotic duration To address at d/c (f/u etc): Home diuretics PLAN: Neurological: No active issues Cardiovascular: #HTN -Home medications: amlodipine 10 mg daily, carvedilol 12.5 mg BID, and furosemide 20 mg daily PLAN -Restart home amlodipine 10mg -Holding Coreg -Will dose IV lasix PRN ?? #HFpEF -Last echo 08/21/22 with LVEF 60% -Home medication is furosemide 20 mg daily (only picked up once) -On examination, appears hypervolemic. Has pitting edema, vascular congestion on CXR, pulmonary crackles PLAN -Give IV Lasix 60mg -Goal net negative 1L today, will reassess in afternoon and provide additional lasix if not on track Pulmonary: #AHRF #Pulmonary edema -Likely volume overload post-operatively in addition to being post anesthesia PLAN -Lasix 60mg IV GI: No active issues Renal: #BOBBY -Etiology may be due to sepsis (ATN, pre-renal) vs more likely volume overload given clinical picture -Baseline Cr ~1.4, up to 2.95 on admission -Had 600cc UOP after IV lasix 40mg; no UOP after holding lasix (bladder scan 32cc) PLAN -Lasix 60mg IV, goal net negative 1L -Reassess fluid status later today and consider additional lasix -Scheduled bladder scans q6hrs, PRN straight cath -Consider fortune if requires straight cath again Endocrine: #DM2 -Hgb a1c 11.7 in August; now 6.7 this admission -At home is on Lantus 10U QPM and Lispro 5U TID PLAN -Start Lantus 5 units qHS -Sliding scale insulin -BGM goal 140-180 mg/dL ID: #Wet Gangrene Left Foot #Leukocytosis -Foot x-ray on arrival with subcutaneous gas. Now s/p left ankle disarticulation with vascular surgery 12/03. -Plan to return to the OR for formal amputation (AKA) -Wound culture growing light gram-positive bacilli and rare gram-positive cocci PLAN -Follow blood cultures 12/02 and wound cultures 12/03 -Neurovascular checks Q4H; NWB LLE -Continue cefepime, vancomycin -Discontinue clindamycin, area of gas gangrene has been removed -Pain regimen: > Scheduled Tylenol Q6H > Oxycodone 5 mg Q6H PRN for moderate pain > Oxycodone 10 mg Q6H PRN for severe pain > Dilaudid 0.2 mg Q4H PRN for breakthrough -Wound care consulted #?GPB bacteremia -Positive 11/04 at 34 hours thus far, follow cultures -On Vancomycin and Cefepime Heme/Onc: #Leukocytosis -See ID Psychiatric: #Severe Recurrent Depression -Had two previous hospitalizations in the past year for suicide attempts via overdosing on antihypertensive medications PLAN -Continue home fluoxetine 20 mg daily FEN: -Monitor electrolytes QD, Replace K<4, Mg<2, Phos<3 Lines: Type: PIV x2 Day number: 1 Plan: Maintain Reason: Acute illness Prophylaxis: Aspiration precautions w/ HOB elevation by 30 degrees DVT prophyalxis w/ Heparin Diet: Diabetic Activity: NWB LLE Disposition: TTF Code Status: Full Willard Estrella MD UCTION GRIP Associated attestation - Levi Cooper MD - 12/04/2022 5:57 PM PRODUCTION GRIP Medical ICU Attending Note Date of Service: 12/04 I have seen and examined the patient with the resident. I agree with the resident/fellow note except for the following additions/corrections. In brief, Leeroy Canales is a 32 year old female admitted to the ICU for necrotizing fasciitis after debridement and amputation of the left lower extremity addition the patient was admitted to the medical ICU for treatment of this bacteremia and necrotizing fasciitis of the foot No current facility-administered medications on file prior to encounter. Current Outpatient Medications on File Prior to Encounter Medication Sig Dispense Refill amLODIPine (Norvasc) 10 MG tablet Take 10 mg by mouth once daily (Patient not taking: Reported on 12/03/2022) carvedilol (Coreg) 12.5 MG tablet Take 1 (one) tablet by mouth 2 times daily with morning and evening meal (Patient not taking: Reported on 12/03/2022) 60 tablet 0 FeroSul 325 (65 Fe) MG tablet Take 325 mg by mouth daily with breakfast (Patient not taking: Reported on 12/03/2022) FLUoxetine (PROzac) 20 MG capsule Take 1 (one) capsule by mouth once daily (Patient not taking: Reported on 12/03/2022) 30 capsule 0 furosemide (Lasix) 20 MG tablet Take 20 mg by mouth once daily (Patient not taking: Reported on 12/03/2022) insulin glargine (Lantus/Semglee) 100 units/ml injection Inject 10 (ten) Units subcutaneously at bedtime insulin lispro (HumaLOG) 100 UNIT/ML vial Inject 5 (five) Units subcutaneously 3 times daily with meals Physical Exam: BP 119/71 Pulse 84 Temp 97.3 ??F (36.3 ??C) Resp 16 Ht 1.702 m (5' 7 ) Wt (!) 148.5 kg (327 lb 6.1 oz) SpO2 90% General - NAD, afebrile, non-cachectic HEENT - NC/AT, clear conjunctivae, throat without erythema or exudate, moist mucous membranes Chest - Crackles bilateral lower lobes; no wheezing, normal respiratory effort CV - RRR no murmurs, rubs, or gallops Abdomen - Soft, NT/ND, +BS, no organomegaly Musculoskeletal - Moves all four extremities Extremities - No clubbing, cyanosis. BLE pitting edema 2-3+ to knees. L ankle disarticulation wrapped in bandages, draining. Skin - No rashes, lesions or jaundice Neurologic - A&O x 3, no focal neurological deficits Data: Laboratory Results: Recent Labs Component Name 12/04/22 0358 12/03/22 1857 12/03/22 0943 12/03/22 0242 WBC 24.8* 35.3* - 37.1* HGB 8.2* 8.2* 8.2* 6.8* HCT 28.0* 26.0* - 22.3* PLTCOUNT 446* 474* - 445* No results for input(s): PT in the last 60777 hours. No results for input(s): INR in the last 33630 hours. Recent Labs Component Name 12/04/22 1605 12/04/22 0358 12/03/22 2313 12/03/22 1707 12/03/22 0242 12/02/22 1955 08/25/22 0315 08/24/22 1404 08/24/22 0725 SODIUM - - - - - - 142 143 138 POTASSIUM 4.3 3.6 3.6 - 3.5 - 3.6 3.7 5.2* CHLORIDE - - - - - - 107 103 110* CO2 16* 17* 18* - 18* - 26 30 20* BUN 36* 35* 33* - 30* - 13 9 8 CREATININE 3.31* 3.24* 3.18* - 2.91* - 1.58* 1.43* 1.42* GLUCOSE 238* 210* 217* - 114 - 211* 145* 165* CALCIUM 7.3* 7.3* 7.3* - 7.3* - 7.9* 8.2* 7.8* ALBUMIN - - - - - - 2.0* 2.1* 1.7* PHOS - 5.1 - - 4.4 - 4.0 4.1 4.5 - = values in this interval not displayed. Recent Labs Component Name 12/04/22 1605 12/04/22 0358 12/03/22 0242 MAGNESIUM 2.3 2.3 2.2 Recent Labs Component Name 12/02/22 1955 08/25/22 0315 08/24/22 1404 08/24/22 0725 08/22/22 0317 08/21/22 0847 ALBUMIN - 2.0* 2.1* 1.7* - 2.2* ALKPHOS 313* - - - - 87 ALT 38 - - - - 11 AST 47* - - - - 5 TBIL - - - - - 0.3 TPROT - - - - - 5.5* - = values in this interval not displayed. Recent Labs Component Name 12/02/22 195 TROPONINI 0.023 ABG: Recent Labs Component Name 12/03/22 1856 FIO2 28.0 I have personally reviewed the pertient labs and imaging. Intentional overdose of drug in tablet form ([facility]) POA: Unknown Severe recurrent major 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 psychotic features ([facility]/HCC) POA: Unknown PTSD (post-traumatic stress disorder) POA: Unknown Left foot infection POA: Unknown Hypoxia POA: Unknown Essential hypertension POA: Unknown Swelling of left foot POA: Unknown Bacteremia due to Gram-positive bacteria POA: Yes Plan: continue to diurese the patient with 60mg of IV Lasix. Restarting amlodipine currently holding Coreg start Lantus 5 daily -fluid balance goal of -1 L - wound culture is growing Gram-positive bacilli and round gram-positive cocci. - will wait for final culture growth of the positive blood culture but likely consult all ED since patient may require long-term antibiotic therapy - will continue broad-spectrum antibiotics - patient does have positive blood cultures which are highly likely due to the of the wound which is causing this bacteremia Dispo: Will transfer to floor Critical Care Time: 30 Pt. is at high risk for complications and morbidity or mortality Pt. is critically ill with vital organ impairment or failure There is high probability of imminent or life threatening deterioration in the patient's condition Time involved in the performance of separately billable procedures, teaching, reviewing education material was not counted towards critical care time. Patient is unable or incompetent to participate in giving a history and/or making decisions and discussion is necessary for determining treatment decisions. Levi Cooper MD Owner/Operator of Emergency Medicine Division of Pulmonary, Critical Care and Sleep Medicine [facility] * Tyrel Gilliam MD - 12/04/2022 5:12 AM CST Vascular Surgery Progress Note Name: Leeroy Canales Hospital Day: 2 HPI: 32 year old female with history of uncontrolled T2DM, obesity, HTN, HFpEF, severe recurrent depression presenting with blistering and foul odor from her left foot. She reports minimal pain to the foot with palpation, however reports pain with ambulation on the left. Patients mother reports that shefell in the shower ~2 weeks ago and has had a small wound since then. Her sister reports that the wound acutely worsened over the past 3 days. They noted a foul smell and draining clear fluid and brought the patient to the ED. Patient and her family deny problems with wound healing in the past. Tx Hx: 12/02/22 - Left ankle disarticulation Subjective: hds; afebrile. pain adequately controlled. The patient denies fevers/chills; denies nausea/vomiting; denies chest pain/shortness of breath. Objective: BP 104/63 Pulse 79 Temp 97.5 ??F (36.4 ??C) (Oral) Resp 16 Ht 1.702 m (5' 7 ) Wt (!) 148.5 kg (327 lb 6.1 oz) SpO2 96% Temp (24hrs), Av.6 ??F (36.4 ??C), Min:97 ??F (36.1 ??C), Max:98.1 ??F (36.7 ??C) Intake/Output Summary (Last 24 hours) at 12/04/2022 0512 Last data filed at 12/03/2022 1700 Gross per 24 hour Intake 1444.29 ml Output 600 ml Net 844.29 ml Exam: Gen: NAD; AOx4 CV: regular rate and rhythm Pulm: non-laboured breathing on room air Abdomen: soft; non-tender Extremities: left ankle disarticulation with serous strike through Meds: Current Facility-Administered Medications Medication ??? 0.9% NaCl injection 3 mL And ??? 0.9% NaCl injection 1-10 mL ??? acetaminophen (Tylenol) tablet 500 mg ??? cefepime (Maxipime) 2,000 mg in 0.9% NaCl IV 50 mL IVPB ??? FLUoxetine (PROzac) capsule 20 mg ??? heparin injection 7,500 Units ??? HYDROmorphone (Dilaudid) injection 0.2 mg ??? insulin lispro (HumaLOG;ADMelog) 100 UNIT/ML pen 0-12 Units ??? oxyCODONE (immediate release) (Roxicodone) tablet 5 mg Or ??? oxyCODONE (immediate release) (Roxicodone) tablet 10 mg Labs: Recent Labs Component Name 12/04/22 0358 WBC 24.8* HGB 8.2* HCT 28.0* Recent Labs Component Name 12/04/22 0358 NA 137 CL 108* CO2 17* BUN 35* CREATININE 3.24* No results for input(s): PT, PTT, INR in the last 52870 hours. 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 recovering adequately in icu. -Will need formalization AKA; timing pending -vascular to change dressing 12/04 -Ok for diet from Vascular surgery perspective -NWB to LLE -Follow cultures -ABx per primary team -rest of cares per primary team Tyrel Gilliam MD Division of Vascular Surgery, PGY-3 12/04/2022 5:14 AM UCTION GRIP * Imelda Nevarez RN - 12/04/2022 3:04 AM CST Problem: Pain/Discomfort Goal: Patient exhibits reduced pain/discomfort as evidenced by pain scores Outcome: Progressing Goal: Patient uses pharmacological and non-pharmacological pain management strategies. Outcome: Progressing Goal: Patient verbalizes acceptable level of pain relief and ability to engage in desired activity. Outcome: Progressing UCTION GRIP * Willard Estrella MD - 12/03/2022 11:16 AM CST MICU Progress Note 12/03/2022 11:32 AM Patient: Leeroy Canales (:1990) Room: 301/ Admit Date: 12/02/2022. Hospital Day: 1 CC: [facility] gangrene Hospital Course: Leeroy Canales is a 32 year old female with a history of DM2, HTN, HFpEF, morbid obesity, and recurrent depression who presented on 12/02 for a large wound of the left foot. She had a small injury and noted wound 2 weeks prior. She's since had progressive blistering, skin sloughing, and foul-smelling drainage. On arrival, she was hemodynamically stable. Labs were notable for creatinine 2.95 (baseline 1.4), WBC 43, ESR >130, CRP 25, BNP 551. X-ray of the left foot showed gas in the subcutaneous tissue of the left foot. Vascular surgery took the patient to the OR emergently for left ankle disarticulation. She was started on Vancomycin, Cefepime, and Clindamycin. Interval History: -Patient denies significant pain this morning -Significant edema + pulmonary vascular congestion--trial lasix for goal of net negative 1L today -Discussed with vascular surgery, stable for TTF Objective: Vitals: 12/03/22 0800 12/03/22 0900 12/03/22 1000 12/03/22 1100 BP: 95/57 108/91 120/76 90/58 Pulse: 108 78 82 74 Resp: 16 12 22 15 Temp: 97.4 ??F (36.3 ??C) SpO2: 97% 98% 98% 94% Weight: Height: Intake/Output Summary (Last 24 hours) at 12/03/2022 1138 Last data filed at 12/03/2022 0705 Gross per 24 hour Intake 800 ml Output -- Net 800 ml Physical Exam General - NAD, afebrile, non-cachectic HEENT - NC/AT, clear conjunctivae, throat without erythema or exudate, moist mucous membranes Chest - CTAB, no crackles or wheezes bilaterally CV - RRR no murmurs, rubs, or gallops Abdomen - Soft, NT/ND, +BS, no organomegaly Musculoskeletal - Moves all four extremities Extremities - No clubbing, cyanosis. BLE pitting edema 2+ to knees. L ankle disarticulation wrappedin bandages, draining. Skin - No rashes, lesions or jaundice Neurologic - A&O x 3, no focal neurological deficits Psych - Appropriate mood and affect Labs: CBC: Recent Labs Component Name 12/03/22 0943 12/03/2224112/02/22195408/22/227 WBC - 37.1* 42.0* 9.6 HGB 8.2* 6.8* 8.9* 8.1* HCT - 22.3* 28.3* 26.8* BMP: Recent Labs Component Name 12/03/2224112/02/22195408/25/225 08/24/22 1404 NA 134* 139 - - CL 106 106 - - CO2 18* 17* 26 30 BUN 30* 27* 13 9 CREATININE 2.91* 2.95* 1.58* 1.43* CALCIUM 7.3* 7.6* 7.9* 8.2* PHOS 4.4 - 4.0 4.1 Hepatic: Recent Labs Component Name 12/02/22195408/21/22 0847 ALT 38 11 AST 47* 5 TBILI 1.9* - PROT 6.0 - ALB 0.8* - ALKPHOS 313* 87 Cardiac Markers: Recent Labs Component Name 12/02/221954 TROPONINI 0.023 Micro: -Blood (12/02): In process -Wound (12/03): GPC, GPB Imaging: Imaging reviewed. Assessment: Intentional overdose of drug in tablet form (CMS/HCC) POA: Unknown Severe recurrent major 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 psychotic features (CMS/HCC) POA: Unknown PTSD (post-traumatic stress disorder) POA: Unknown Left foot infection POA: Unknown Hypoxia POA: Unknown Essential hypertension POA: Unknown Swelling of left foot POA: Unknown TRANSFER CHECKLIST: Pertinent comorbidities/PMH: HTN, HFpEF, DM2 Home meds being held: Amlodipine, Carvedilol, PO furosemide, Insulin Intubation/NIPPV days: N/A Pressor agents and days: N/A ABX indications: Vancomycin and Cefepime for wet gangrene Consult teams past & present: Vascular Pending work up: Left BKA Things to watch: Sepsis, DM2, Fluid status To address prior to d/c: Antibiotic duration To address at d/c (f/u etc): Home diuretics PLAN: Neurological: No active issues Cardiovascular: #HTN -Home medications: amlodipine 10 mg daily, carvedilol 12.5 mg BID, and furosemide 20 mg daily PLAN -Holding home amlodipine and coreg due to normotension -Will dose lasix PRN ?? #HFpEF -Last echo 08/21/22 with LVEF 60% -Home medication is furosemide 20 mg daily (only picked up once) -On examination, appears hypervolemic. Has pitting edema, vascular congestion on CXR, and is on oxygen. PLAN -Give IV Lasix 40mg -Goal net negative 1L today, will reassess in afternoon and provide additional lasix if not on track Pulmonary: #AHRF #Pulmonary edema -Likely volume overload post-operatively in addition to being post anesthesia PLAN -Lasix 40mg IV GI: No active issues Renal: #BOBBY -Etiology may be due to sepsis (ATN, pre-renal) vs more likely volume overload given clinical picture -Baseline Cr ~1.4, up to 2.95 on admission PLAN -F/u urine lytes -Lasix 40mg IV, goal net negative 1L Endocrine: #DM2 -Hgb a1c 11.7 in August; now 6.7 this admission -At home is on Lantus 10U QPM and Lispro 5U TID PLAN -Holding home insulin, currently BG at goal -Sliding scale insulin -BGM goal 140-180 mg/dL ID: #Wet Gangrene Left Foot #Leukocytosis -Foot x-ray on arrival with subcutaneous gas. Now s/p left ankle disarticulation with vascular surgery 12/03. -Plan to return to the OR for formal amputation (BKA) -Wound culture growing light gram-positive bacilli and rare gram-positive cocci PLAN -Follow blood cultures 12/02 and wound cultures 12/03 -Neurovascular checks Q4H -Continue cefepime, vancomycin -Discontinue clindamycin, area of gas gangrene has been removed -Pain regimen: > Scheduled Tylenol Q6H > Oxycodone 5 mg Q6H PRN for moderate pain > Oxycodone 10 mg Q6H PRN for severe pain > Dilaudid 0.2 mg Q4H PRN for breakthrough -Wound care consulted Heme/Onc: #Leukocytosis -See ID Psychiatric: #Severe Recurrent Depression -Had two previous hospitalizations in the past year for suicide attempts via overdosing on antihypertensive medications PLAN -Continue home fluoxetine 20 mg daily FEN: -Monitor electrolytes QD, Replace K<4, Mg<2, Phos<3 Lines: Type: PIV x2 Day number: 1 Plan: Maintain Reason: Acute illness Prophylaxis: Aspiration precautions w/ HOB elevation by 30 degrees DVT prophyalxis w/ Heparin Diet: Diabetic Activity: NWB LLE Disposition: ICU Monitoring Code Status: Full Willard Estrella MD UCTION GRIP Associated attestation - Levi Cooper MD - 12/04/2022 5:52 PM PRODUCTION GRIP Medical ICU Attending Note Date of Service: 12/03 I have seen and examined the patient with the resident. I agree with the resident/fellow note except for the following additions/corrections. In brief, Leeroy Canales is a 32 year old female admitted to the ICU for necrotizing fasciitis after debridement and amputation of the left lower extremity addition the patient was admitted to the medical ICU for treatment of this possible bacteremia. No current facility-administered medications on file prior to encounter. Current Outpatient Medications on File Prior to Encounter Medication Sig Dispense Refill amLODIPine (Norvasc) 10 MG tablet Take 10 mg by mouth once daily (Patient not taking: Reported on 12/03/2022) carvedilol (Coreg) 12.5 MG tablet Take 1 (one) tablet by mouth 2 times daily with morning and evening meal (Patient not taking: Reported on 12/03/2022) 60 tablet 0 FeroSul 325 (65 Fe) MG tablet Take 325 mg by mouth daily with breakfast (Patient not taking: Reported on 12/03/2022) FLUoxetine (PROzac) 20 MG capsule Take 1 (one) capsule by mouth once daily (Patient not taking: Reported on 12/03/2022) 30 capsule 0 furosemide (Lasix) 20 MG tablet Take 20 mg by mouth once daily (Patient not taking: Reported on 12/03/2022) insulin glargine (Lantus/Semglee) 100 units/ml injection Inject 10 (ten) Units subcutaneously at bedtime insulin lispro (HumaLOG) 100 UNIT/ML vial Inject 5 (five) Units subcutaneously 3 times daily with meals Physical Exam: BP 119/71 Pulse 84 Temp 97.3 ??F (36.3 ??C) Resp 16 Ht 1.702 m (5' 7 ) Wt (!) 148.5 kg (327 lb 6.1 oz) SpO2 90% General: NAD, afebrile, non cachectic HEENT: NC/AT, EOMI, clear conjunctivae, moist mucous membranes Neck: Supple Chest: CTAB, positive bilateral crackles. CV: RRR no murmurs Abdomen: Soft, NT/ND, +BS Musculoskeletal: Moves all four extremities Extremities: Chronic-appearing skin changes over right lower extremity, left lower extremity bandaged with serosanguinous oozing present, 3+ edema throughout Skin: No rashes, lesions or jaundice Data: Laboratory Results: Recent Labs Component Name 12/04/22 0358 12/03/22 1857 12/03/22 0943 12/03/22 0242 WBC 24.8* 35.3* - 37.1* HGB 8.2* 8.2* 8.2* 6.8* HCT 28.0* 26.0* - 22.3* PLTCOUNT 446* 474* - 445* No results for input(s): PT in the last 94560 hours. No results for input(s): INR in the last 47325 hours. Recent Labs Component Name 12/04/22 1605 12/04/22 0358 12/03/22 2313 12/03/22 1707 12/03/22 0242 12/02/22 1955 08/25/22 0315 08/24/22 1404 08/24/22 0725 SODIUM - - - - - - 142 143 138 POTASSIUM 4.3 3.6 3.6 - 3.5 - 3.6 3.7 5.2* CHLORIDE - - - - - - 107 103 110* CO2 16* 17* 18* - 18* - 26 30 20* BUN 36* 35* 33* - 30* - 13 9 8 CREATININE 3.31* 3.24* 3.18* - 2.91* - 1.58* 1.43* 1.42* GLUCOSE 238* 210* 217* - 114 - 211* 145* 165* CALCIUM 7.3* 7.3* 7.3* - 7.3* - 7.9* 8.2* 7.8* ALBUMIN - - - - - - 2.0* 2.1* 1.7* PHOS - 5.1 - - 4.4 - 4.0 4.1 4.5 - = values in this interval not displayed. Recent Labs Component Name 12/04/22 1605 12/04/22 0358 12/03/22 0242 MAGNESIUM 2.3 2.3 2.2 Recent Labs Component Name 12/02/22 19508/25/22 0315 08/24/22 1404 08/24/22 0725 08/22/22 0317 08/21/22 0847 ALBUMIN - 2.0* 2.1* 1.7* - 2.2* ALKPHOS 313* - - - - 87 ALT 38 - - - - 11 AST 47* - - - - 5 TBIL - - - - - 0.3 TPROT - - - - - 5.5* - = values in this interval not displayed. Recent Labs Component Name 12/02/221954 TROPONINI 0.023 ABG: Recent Labs Component Name 12/03/22 1856 FIO2 28.0 I have personally reviewed the pertient labs and imaging. Intentional overdose of drug in tablet form (CMS/HCC) POA: Unknown Severe recurrent major 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 psychotic features (CMS/HCC) POA: Unknown PTSD (post-traumatic stress disorder) POA: Unknown Left foot infection POA: Unknown Hypoxia POA: Unknown Essential hypertension POA: Unknown Swelling of left foot POA: Unknown Bacteremia due to Gram-positive bacteria POA: Yes Plan: Will start continue to diurese the patient with 40 of IV Lasix. Holding home antihypertensive medications. sliding scale insulin for her diabetes Concerning necrotizing fasciitis appears to that the patient has clean margins. We will DC clindamycin at this time. - wound culture is growing Gram-positive bacilli and round gram-positive cocci. - will continue broad-spectrum antibiotics - patient does have positive blood cultures which are highly likely due to the of the wound which is causing this bacteremia Critical Care Time: 31 Pt. is at high risk for complications and morbidity or mortality Pt. is critically ill with vital organ impairment or failure There is high probability of imminent or life threatening deterioration in the patient's condition Time involved in the performance of separately billable procedures, teaching, reviewing education material was not counted towards critical care time. Patient is unable or incompetent to participate in giving a history and/or making decisions and discussion is necessary for determining treatment decisions. Levi Cooper MD Owner/Operator of Emergency Medicine Division of Pulmonary, Critical Care and Sleep Medicine [facility] * Masha Finley RN - 12/03/2022 10:23 AM CST Images from the original note were not included. Physician consult for leg wound, new altered skin integrity. Pt is s/p left foot disarticulation for wet gangrene. She is class 3 obesity, BMI is 50.07. Recommend: - Frequent turns - Recommend low air loss mattress - Use pillows or positioning wedge (avoid positioning directly on trochanter when using side lying position) - Keep HOB below 30 degrees when medically feasible - Reduce Friction/Shear - Lift patient in bed with sheet or pad. DO NOT PULL OR DRAG - Single layer flat sheet for turning/microturns - Large sacral Mepilex prevention dressing for patients with contained/managed incontinence, changeq 3 days and prn - Off load heels with heel boots if patient cannot move legs spontaneously - Moisture/incontinence protection - dry skin well, apply protective barrier cream/ointment bid andprn TRIAD - All external devices (braces/collars/etc) - follow guidelines for skin assessment and management - Bariatric low air loss pulsate bed for patients with BMI > 40 or body habitus not allowing forsacral off loading. Called [facility] at this time for Rashid bed with bolsters.. Pt may benefit from external fecal pouch if continued diarrhea stools. Discussed interventions with nurse Burr. Reconsult for further needs. UCTION GRIP * Jose Santamaria RN - 12/03/2022 9:53 AM CST Case Management Initial Assessment Case Management screen completed Anticipated Discharge Date: 12/09/22 Transportation at Discharge: Family (Mother or brother) Anticipated level of care at discharge: Home, Acute Rehab Facility-Pending patient's progress with medical treatment and care team recommendations. Anticipated level of care provider: None Prior to admission level of care: Home Prior to admit provider: None Discharge Goals and Plans: Patient Goals: Per mother goal is to get better and go home with sister Plans: Discharge needs identified. See progress notes for details. Case Management to follow for discharge planning. Upon discharge or transfer to a post acute facility should rehospitalization, home health, rehabilitation, or any other follow up care be required, patient's preference is to stay within the [facility] and its affiliates.: Unsure Comments: CM talked to patient's mom Silvia Resendiz, patient has been living at home with her sisterGaye Beal, needs assistance with mobility. Lives with: Sister Physical Limitations: (Needs assistance with walking) Requires Assistance With: Mobility Insurance: Payer/Plan Subscriber Name Rel Member # Group # [facility]* LEEROY CANALES [facility] [id number] [address] Readmission: No Readmission Risk: READMISSION RISK SCORE is 15 at 9:54 AM 12/03/2022. Met with: CM talked to patient's mom Silvia Resendiz via phone. Family Support (name and phone): Extended Emergency Contact Information Primary Emergency Contact: Silvia Resendiz Mobile Relation: Mother Compressor Operator Portable needed? No Secondary Emergency Contact: EMIGDIOGAYE Mobile Relation: Sister Compressor Operator Portable needed? No Patient or product sales representative requests care coordination reach out to family or caregiver listed above regarding discharge planning and at time of discharge?Yes Patient/Family provided with list of resources? No Preferred Provider / High Quality Network List given?: No Reason for provider choice: Pt. choice - Pt. choice Equipment at Home: Other (comment) (Pending therapy recommendations) Service Center Representative Referral: Yes Will continue to follow. For any questions or needs please contact: [employer] C[employer]er Name/Phone number: Jose Santamaria RN BSN [phone] UCTION GRIP * Jed Clancy PharmD - 12/03/2022 6:52 AM CST Vancomycin Per Pharmacy - Discontinuation Notification Due to Change in Level of Care This patient is being transferred to the ICU, therefore vancomycin will no longer be managed by pharmacy Subjective: Leeroy Canales is a 32 year old female receiving vancomycin dosed per pharmacy. Indication for anti-infective therapy: suspected infection Site of anti-infective therapy: Wound. Goal trough 15-20 mcg/mL. Objective: Vancomycin day of therapy 2 Current regimen: intermittent dosing Vancomycin Administrations from JAN (last 72 hours) Date/Time Action Medication Dose Rate 12/02/222112 $ New Bag/Syringe vancomycin (Vancocin) 2,500 mg in 500 mL NaCl IVPB Premix 2,500 mg 200 mL/hr No results for input(s): VANCORNDM, VANCTROUGH, VANCOPEAK in the last 01571 hours. Assessment/Recommendation: The patient is receiving intermittent doses of vancomycin with next level 12/03 2099. Recommend adjusting regimen based on that level. Please contact the [facility] pharmacy department ([phone]) with any questions. Jed Clancy PharmD 12/03/2022 6:51 AM Resources: Vancomycin Protocol UCTION GRIP * Dat Clay MD - 12/03/2022 5:30 AM CST Vascular Surgery Progress Note Name: Leeroy Canales Hospital Day: 1 HPI: 32 year old female with history of uncontrolled T2DM, obesity, HTN, HFpEF, severe recurrent depression presenting with blistering and foul odor from her left foot. She reports minimal pain to the foot with palpation, however reports pain with ambulation on the left. Patients mother reports that shefell in the shower ~2 weeks ago and has had a small wound since then. Her sister reports that the wound acutely worsened over the past 3 days. They noted a foul smell and draining clear fluid and brought the patient to the ED. Patient and her family deny problems with wound healing in the past. Tx Hx: 12/02/22 - Left ankle disarticulation Subjective: -POD#1 s/p above -Resting comfortably on exam this AM -AF VSS overnight -Hgb 6.8, transfused 1 u pRBC -WBC 37 (42) Anticoagulation: sqh Antibiotics: Vanc, Cefe, Clinda Objective: BP 111/69 Pulse 79 Temp 97.7 ??F (36.5 ??C) (Oral) Resp 17 Ht 1.702 m (5' 7 ) Wt (!) 145 kg (319 lb 10.7 oz) SpO2 96% Temp (24hrs), Av.6 ??F (36.4 ??C), Min:97.3 ??F (36.3 ??C), Max:98.5 ??F (36.9 ??C) Intake/Output Summary (Last 24 hours) at 12/03/2022 0530 Last data filed at 12/02/2022 2359 Gross per 24 hour Intake 400 ml Output -- Net 400 ml Exam: Gen: Obese female in no acute distress HEENT: Head NC/AT. EOMI. Neck without deformity CV: tachycardic sinus rhythm Pulm: Non labored breathing on mask Abdomen: Soft, non distended. Not peritoneal. Not TTP Ext: L foot with dressings in place, dressings c/d/i, no dayo bleeding or active purulence Meds: Current Facility-Administered Medications Medication ??? 0.9% NaCl infusion rate and volume ??? 0.9% NaCl injection 3 mL And ??? 0.9% NaCl injection 1-10 mL ??? acetaminophen (Tylenol) tablet 500 mg ??? cefepime (Maxipime) 2,000 mg in 0.9% NaCl IV 50 mL IVPB ??? clindamycin (Cleocin) 900 mg in 50 mL D5W IVPB ??? dextrose 10 % IV bolus Or ??? dextrose 10 % IV bolus ??? FLUoxetine (PROzac) capsule 20 mg ??? glucagon (Glucagen) injection 1 mg ??? glucose (Diabetic Use) (Dex4 Glucose) oral liquid ??? glucose (Diabetic Use) oral gel ??? glucose chew tablet 4 tablet ??? heparin injection 7,500 Units ??? HYDROmorphone (Dilaudid) injection 0.2 mg ??? insulin lispro (HumaLOG;ADMelog) 100 UNIT/ML pen 0-6 Units ??? oxyCODONE (immediate release) (Roxicodone) tablet 5 mg Or ??? oxyCODONE (immediate release) (Roxicodone) tablet 10 mg ??? vancomycin (Vancocin) IV dose per pharmacy Labs: Recent Labs Component Name 12/03/22 0242 WBC 37.1* HGB 6.8* HCT 22.3* Recent Labs Component Name 12/03/22 0242 NA 134* CL 106 CO2 18* BUN 30* CREATININE 2.91* No results for input(s): PT, PTT, INR in the last 98789 hours. 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 Recovering expectantlyin the ICU. -Will need formalization AKA -Plan for dressing change at bedside later today -Ok for diet from Vascular surgery perspective -NWB to LLE -Follow cultures -ABx per primary team -rest of cares per primary team Dat Clay MD 12/03/2022 5:30 AM UCTION GRIP * Xiang Younger, PharmD - 12/02/2022 10:42 PM CST Vancomycin Per Pharmacy - Initial Note Subjective Leeroy Canales is a 32 year old female being initiated on vancomycin. Indication for anti-infective therapy: suspected infection Site of anti-infective therapy: Wound. Goal trough 15-20 mcg/mL. Objective Day of treatment: 1 Weight: 129.3 kg (285 lb) Estimated Creatinine Clearance: 39 mL/min (based on SCr of 2.95) Ht Readings from Last 1 Encounters: 12/02/22 5' 7 (1.702 m) Recent Labs Component Name 12/02/22 1955 08/25/22 0315 08/24/22 1404 08/23/22 0314 08/22/22 0317 08/21/22 0847 08/21/22 0846 CREATININE 2.95* 1.58* 1.43* - 1.49* - - WBC 42.0* - - - 9.6 - 11.7* - = values in this interval not displayed. Vancomycin Administrations from JAN (last 72 hours) Date/Time Action Medication Dose Rate 12/02/22 1866 $ New Bag/Syringe vancomycin (Vancocin) 2,500 mg in 500 mL NaCl IVPB Premix 2,500 mg 200 mL/hr Assessment Target trough: 15-20 mcg/mL Predicted pharmacokinetics are unreliable with unstable renal function. Renal function based on S Cr is unstable at this time. Currently 2.95 w/ prior known baseline of ~1.5. Plan Dosing: Loading Dose: 2500 mg Maintenance Dose: Deferred Dosing Interval: Intermittent dosing based on levels Monitoring Plan: Will obtain a random vancomycin level about 24 hours after the dose given today and re-dose if appropriate. Will continue to monitor patient's renal function. Please contact the [facility] pharmacy department ([phone]) with any questions. Xiang Younger PharmD 12/02/2022 10:39 PM Resources: Vancomycin Protocol UCTION GRIP * Rafa Newman MD - 12/02/2022 10:34 PM CST Vascular Surgery Plan of Care: -Patient seen and examined at bedside. Left foot gangrene involving the plantar surface with purulent drainage. Strong DP/PT doppler signals but pulses not palpable due to edema. Currently stable butleukocytosis to 42 and tachy at bedside. Discussed need for urgent source control likely entailing left ankle disarticulation. Counseled patient that she would need emergent source control however her ultimate level of amputation will not be able to be determined until we can surgically explore herleg. She was instructed that she may have deep infection above the ankle with a particularly concerning sher lesion. Additionally she has massive bilateral edema that would make healing a below knee amputation difficult regardless of extent of infection. She understood the risks benefits and alternatives and wishes to undergo left ankle disarticulation, possible below vs above knee amputation. Rafa Newman MD 12/02/2022 10:42 PM UCTION GRIP documented in this encounter H&P Notes * Vitor Mendes MD - 12/03/2022 12:10 AM CST MICU History & Physical Note 12/03/2022 12:12 AM Patient: Leeroy Canales (:1990) Room: OR/OR Admit Date: 12/02/2022. Hospital Day: 1 CC: blistering and foul-smelling drainage coming from left foot HPI: Leeroy Canales is a 32 year old woman with a PMH of uncontrolled DM2, HTN, HFpEF, morbid obesity, andsevere recurrent depression who presented for blistering and foul-smelling fluid drainage from leftfoot and was found to have diabetic wet gangrene of left lower extremity. In the ED vitals were notable for BP of 151/108. Labs were notable for for Cr 2.95, alk phos 313, WBC 42, ESR >130, and BNP 551. Xray left foot showed gas in the subcutaneous tissue. Vascular surgery was consulted and recommended emergent operative management. Blood cultures were collected and patient received one dose cefepime, clindamycin, and vancomycin. Was then transferred to the OR for left ankle disarticulation. After procedure patient was transferred to the MICU for Q4H neurovascularchecks. Past Medical History Past Medical History: Diagnosis Date ??? Type 2 diabetes mellitus without complications (CMS/HCC) Past Surgical History No past surgical history on file. Social History Social History Tobacco Use ??? Smoking status: Never ??? Smokeless tobacco: Never Vaping Use ??? Vaping Use: Never used Substance Use Topics ??? Alcohol use: Never ??? Drug use: Never Family History Family History Problem Relation Name Age of Onset ??? Diabetes - Type 2 Father ??? Diabetes - Type 2 Paternal Grandmother Allergies No Known Allergies Home Medications Current Outpatient Medications Medication Instructions ??? amLODIPine (NORVASC) 10 mg, Oral, DAILY ??? carvedilol (COREG) 12.5 mg, Oral, 2 TIMES DAILY WITH MEALS ??? FeroSul 325 mg, Oral, DAILY WITH BREAKFAST ??? FLUoxetine (PROZAC) 20 mg, Oral, DAILY ??? furosemide (LASIX) 20 mg, Oral, DAILY ??? insulin glargine (LANTUS) 10 Units, Subcutaneous, AT BEDTIME ??? insulin lispro (HUMALOG) 5 Units, Subcutaneous, 3 TIMES DAILY WITH MEALS Review of Systems Patient very somnolent on exam s/p surgical procedure. Unable to obtain full ROS. Endorses pain left lower extremity. Objective: Vitals: 12/02/22 1935 12/02/22 1936 12/02/22 2310 12/03/22 0004 BP: 142/95 137/84 103/60 Pulse: 99 79 Resp: (!) 34 21 Temp: 97.3 ??F (36.3 ??C) SpO2: 98% (!) 86% 99% Weight: Height: Intake/Output Summary (Last 24 hours) at 12/03/2022 0012 Last data filed at 12/02/2022 2359 Gross per 24 hour Intake 400 ml Output -- Net 400 ml Physical Exam General: NAD, afebrile, non cachectic HEENT: NC/AT, EOMI, clear conjunctivae, moist mucous membranes Neck: Supple Chest: CTAB, no crackles or wheezes bilaterally CV: RRR no murmurs Abdomen: Soft, NT/ND, +BS Musculoskeletal: Moves all four extremities Extremities: Chronic-appearing skin changes over right lower extremity, left lower extremity bandaged with serosanguinous oozing present Skin: No rashes, lesions or jaundice Psych: Patient somnolent Labs: CBC: Recent Labs Component Name 12/02/22195408/22/2231608/21/22 0846 WBC 42.0* 9.6 11.7* HGB 8.9* 8.1* 8.6* HCT 28.3* 26.8* 28.6* BMP: Recent Labs Component Name 12/02/22195408/25/2231408/24/22 1404 08/24/22 0725 NA 139 - - - CL 106 - - - CO2 17* 26 30 20* BUN 27* 13 9 8 CREATININE 2.95* 1.58* 1.43* 1.42* CALCIUM 7.6* 7.9* 8.2* 7.8* PHOS - 4.0 4.1 4.5 Hepatic: Recent Labs Component Name 12/02/22195408/21/22 0847 ALT 38 11 AST 47* 5 TBILI 1.9* - PROT 6.0 - ALB 0.8* - ALKPHOS 313* 87 Coagulation: No results for input(s): PT, INR, APTT in the last 55264 hours. Cardiac Markers: Recent Labs Component Name 12/02/221954 TROPONINI 0.023 ABGs: No results for input(s): PHART, PO2ART, [id number], BEART in the last 02160 hours. Micro: Microbiology Results (Displays last 21 days for this encounter ONLY) Procedure Component Value - Date/Time CULTURE ANAEROBE [[id number]] Collected: 12/03/2226 Lab Status: No result Specimen: Body Fluid CULTURE FLUID+GRAM STAIN [[id number]] Collected: 12/03/2226 Lab Status: No result Specimen: Body Fluid CULTURE BLOOD [[id number]] Collected: 12/02/222031 Lab Status: In process Specimen: Blood Peripheral Updated: 12/02/222035 CULTURE BLOOD [[id number]] Collected: 12/02/221999 Lab Status: In process Specimen: Blood Peripheral Updated: 12/02/222035 Imaging: No results found. Assessment: Intentional overdose of drug in tablet form (CMS/HCC) POA: Unknown Severe recurrent major 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 psychotic features (CMS/HCC) POA: Unknown PTSD (post-traumatic stress disorder) POA: Unknown Left foot infection POA: Unknown Hypoxia POA: Unknown Essential hypertension POA: Unknown Swelling of left foot POA: Unknown PLAN: Neurological: CATHY Cardiovascular: #HTN - At home is on amlodipine 10 mg daily, carvedilol 12.5 mg BID, and furosemide 20 mg daily PLAN - Holding home meds as patient is currently normotensive #HFpEF - Echo 08/21/22 with LVEF 60% - At home is on furosemide 20 mg daily - Currently does not appear hypervolemic on examination PLAN - Holding furosemide in the setting of BOBBY Pulmonary: CATHY GI: CATHY Renal: #BOBBY - Likely secondary to acute infection - Baseline Cr ~1.4, up to 2.95 on admission - BUN/Cr ratio normal PLAN - Holding furosemide - Follow up urine lytes - Daily BMP Endocrine: #Uncontrolled DM2 - Hgb a1c 11.7 on 08/22/22 - Is on Lantus 10U QPM and Lispro 5U TID PLAN - Ordered repeat a1c - Holding home meds - Sliding scale insulin - BGM goal 140-180 mg/dL - Would likely benefit from evaluation by endocrine ID: #Wet Gangrene Left Foot #Leukocytosis - S/p left ankle disarticulation with vascular surgery 12/03 - Plan to return to the OR for formal amputation (BKA vs AKA) later in the week - Wound culture growing light gram-positive bacilli and rare gram-positive cocci PLAN - Follow blood cultures 12/02 and wound cultures 12/03 - Neurovascular checks Q4H - Continue cefepime, clindamycin, and vancomycin - Pain regimen: > Scheduled Tylenol Q6H > Oxycodone 5 mg Q6H PRN for moderate pain > Oxycodone 10 mg Q6H PRN for severe pain > Dilaudid 0.2 mg Q4H PRN for breakthrough - Wound care consulted Heme/Onc: #Leukocytosis - Refer to ID section Psychiatric: #Severe Recurrent Depression - Patient with two previous hospitalizations in the past year for suicide attempts via overdosing on antihypertensive medications PLAN - Continue home fluoxetine 20 mg daily FEN: - Monitor electrolytes QD, Replace K<4, Mg<2, Phos<3 Lines: PIV x2 Prophylaxis: Aspiration precautions w/ HOB elevation by 30 degrees GI prophyalxis not indicated DVT prophyalxis w/ heparin, okay per vascular surgery Diet: Diabetic consistent carbs Activity: Bedrest Disposition: ICU Monitoring Code Status: FULL Vitor Mendes MD Internal Medicine, PGY1 Pager UCTION GRIP Associated attestation - Levi Cooper MD - 12/04/2022 5:51 PM PRODUCTION GRIP Medical ICU Attending Note Date of Service: 12/03 I have seen and examined the patient with the resident. I agree with the resident/fellow note except for the following additions/corrections. In brief, Leeroy Canales is a 32 year old female admitted to the ICU for necrotizing fasciitis after debridement and amputation of the left lower extremity addition the patient was admitted to the medical ICU for treatment of this possible bacteremia. No current facility-administered medications on file prior to encounter. Current Outpatient Medications on File Prior to Encounter Medication Sig Dispense Refill amLODIPine (Norvasc) 10 MG tablet Take 10 mg by mouth once daily (Patient not taking: Reported on 12/03/2022) carvedilol (Coreg) 12.5 MG tablet Take 1 (one) tablet by mouth 2 times daily with morning and evening meal (Patient not taking: Reported on 12/03/2022) 60 tablet 0 FeroSul 325 (65 Fe) MG tablet Take 325 mg by mouth daily with breakfast (Patient not taking: Reported on 12/03/2022) FLUoxetine (PROzac) 20 MG capsule Take 1 (one) capsule by mouth once daily (Patient not taking: Reported on 12/03/2022) 30 capsule 0 furosemide (Lasix) 20 MG tablet Take 20 mg by mouth once daily (Patient not taking: Reported on 12/03/2022) insulin glargine (Lantus/Semglee) 100 units/ml injection Inject 10 (ten) Units subcutaneously at bedtime insulin lispro (HumaLOG) 100 UNIT/ML vial Inject 5 (five) Units subcutaneously 3 times daily with meals Physical Exam: BP 119/71 Pulse 84 Temp 97.3 ??F (36.3 ??C) Resp 16 Ht 1.702 m (5' 7 ) Wt (!) 148.5 kg (327 lb 6.1 oz) SpO2 90% General: NAD, afebrile, non cachectic HEENT: NC/AT, EOMI, clear conjunctivae, moist mucous membranes Neck: Supple Chest: CTAB, positive bilateral crackles. CV: RRR no murmurs Abdomen: Soft, NT/ND, +BS Musculoskeletal: Moves all four extremities Extremities: Chronic-appearing skin changes over right lower extremity, left lower extremity bandaged with serosanguinous oozing present, 3+ edema throughout Skin: No rashes, lesions or jaundice Data: Laboratory Results: Recent Labs Component Name 12/04/22 0358 12/03/22 1857 12/03/22 0943 12/03/22 0242 WBC 24.8* 35.3* - 37.1* HGB 8.2* 8.2* 8.2* 6.8* HCT 28.0* 26.0* - 22.3* PLTCOUNT 446* 474* - 445* No results for input(s): PT in the last 94512 hours. No results for input(s): INR in the last 01452 hours. Recent Labs Component Name 12/04/22 1605 12/04/228 12/03/22 2313 12/03/22 1707 12/03/22 0242 12/02/22195408/25/2231408/24/22 1404 08/24/22 0725 SODIUM - - - - - - 142 143 138 POTASSIUM 4.3 3.6 3.6 - 3.5 - 3.6 3.7 5.2* CHLORIDE - - - - - - 107 103 110* CO2 16* 17* 18* - 18* - 26 30 20* BUN 36* 35* 33* - 30* - 13 9 8 CREATININE 3.31* 3.24* 3.18* - 2.91* - 1.58* 1.43* 1.42* GLUCOSE 238* 210* 217* - 114 - 211* 145* 165* CALCIUM 7.3* 7.3* 7.3* - 7.3* - 7.9* 8.2* 7.8* ALBUMIN - - - - - - 2.0* 2.1* 1.7* PHOS - 5.1 - - 4.4 - 4.0 4.1 4.5 - = values in this interval not displayed. Recent Labs Component Name 12/04/22160412/04/2235712/03/22 0242 MAGNESIUM 2.3 2.3 2.2 Recent Labs Component Name 12/02/22195408/25/2231408/24/22 1404 08/24/22 0725 08/22/22 0317 08/21/22 0847 ALBUMIN - 2.0* 2.1* 1.7* - 2.2* ALKPHOS 313* - - - - 87 ALT 38 - - - - 11 AST 47* - - - - 5 TBIL - - - - - 0.3 TPROT - - - - - 5.5* - = values in this interval not displayed. Recent Labs Component Name 12/02/221954 TROPONINI 0.023 ABG: Recent Labs Component Name 12/03/22 1856 FIO2 28.0 I have personally reviewed the pertient labs and imaging. Intentional overdose of drug in tablet form (CMS/[facility]) POA: Unknown Severe recurrent major 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 psychotic features (CMS/HCC) POA: Unknown PTSD (post-traumatic stress disorder) POA: Unknown Left foot infection POA: Unknown Hypoxia POA: Unknown Essential hypertension POA: Unknown Swelling of left foot POA: Unknown Bacteremia due to Gram-positive bacteria POA: Yes Plan: Currently holding furosemide due to the patient's BOBBY likely the patient will be able to be diuresed tomorrow. Holding home antihypertensive medications. sliding scale insulin for her diabetes Concerning necrotizing fasciitis appears to that the patient has clean margins. We will DC clindamycin at this time. - wound culture is growing Gram-positive bacilli and round gram-positive cocci. - will continue broad-spectrum antibiotics - patient does have positive blood cultures which are highly likely due to the of the wound which is causing this bacteremia Critical Care Time: 31 Pt. is at high risk for complications and morbidity or mortality Pt. is critically ill with vital organ impairment or failure There is high probability of imminent or life threatening deterioration in the patient's condition Time involved in the performance of separately billable procedures, teaching, reviewing education material was not counted towards critical care time. Patient is unable or incompetent to participate in giving a history and/or making decisions and discussion is necessary for determining treatment decisions. Levi Cooper MD Owner/Operator of Emergency Medicine Division of Pulmonary, Critical Care and Sleep Medicine [facility] documented in this encounter Consult Notes * Austyn Menon, RN - 12/12/2022 10:00 AM CSTAssociated Order(s): IP CONSULT TO VP OUTCOMES Inpatient Industrial Equipment Mechanic Note Today's Date: 12/12/22 Leeroy Canales is a 32 year old female currently hospitalized. A consult with Diabetes Education was requested due to . Leeroy'vanessa needs a glucometer to check blood sugars at home. Current Hospitalization Concerns: Patient admitted to hospital with left infection, large wound on left foot from fall in shower 2 weeks prior to hospitalization. 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 Recent Labs: Pertinent labs were reviewed. A1c 6.7% on 12/02/2022. Participant Reported Labs/Blood Glucose Control: Patient has not had a glucometer since April. Glucometer, lancets, lancet device, test strips, and alcohol swabs received from [facility] outpatient pharmacy. Reviewed how to use glucometer and supplies with the patient, patient stated she knows how to use the glucometer and supplies. Compliance With Medications: Patient takes Lantus and Humalog insulins at home, stated she uses the vial and syringe. Stated shehad the insulin pens at one time and her and her sister could not figure out how to use it so she went back to the insulin vial and syringe. Demonstrated priming and administering insulin using demo insulin pen. Patient performed return demonstration on priming and administering insulin using demo i nsulin pen. Patient stated she understood how to use the insulin pen. Education/Support: Education efforts focused on disease process and treatment options, incorporating nutritional management into lifestyle, incorporating physical activity into lifestyle, monitoring practices, using medication(s) safely and for maximum therapeutic effectiveness, hypoglycemia - preventing, detecting, and treating acute complications, hyperglycemia - preventing, detecting, and treating acute complications, sick day management - preventing, detecting, and treating acute complications, chronic complications - preventing, detecting, and treating, psychosocial issues and concerns - developing personal strategies and health and behavior change - developing personal strategies. Handouts in diabetes education packet reviewed with patient. Reviewed Aic, know your numbers, high and low blood sugar signs, symptoms and treatment, checking blood glucose levels, insulin administration, monitoring left amputation incision for any changes, consistent carbohydrate diet and counting carbohydrates. Patient stated her sister does the cooking. Patient stated she understands the information. Leeroy's overall adherence potential is assessed as follows: Patient denies any questions, state she understands the information. Thank you for the opportunity to participate in your patient's care. Austyn Menon RN, , GCNS, [facility] [employer] [employer] U[employer]IP * Brittney Bell MD - 12/11/2022 12:37 PM CSTAssociated Order(s): IP CONSULT TO PSYCHIATRY [facility] Consult Psychiatry History and Physical Name: Leeroy Canales Age: [age] year old Date of : 1990 Location: [facility] Reason for consult: depression Level of consult: One-time consult to assist in determining a diagnosis and to recommend an appropriate treatment plan Chief Complaint: depression evaluation History of Present Illness: Leeroy Canales is a 32 year old female with a history of depression and a past suicide attempt who is admitted with necrotizing fasciitis now s/p AKA on 12/05. Psychiatry was consulted for depression. Her antibiotics have been de-escalated to Augmentin (EOT 12/14/22) and BOBBY is improving. She reports a hx of significant trauma and has struggled with depression and PTSD in the past. Her suicide attempt in the fall was secondary to a PTSD trigger. She denied SI since that time. Regarding her current trauma/hospitalization, she reports that she is doing fairly well considering. She has a good support system through her family and is looking forward to going to rehab to get stronger. She still enjoys cooking and hopes to do this upon discharge. She plans to move in with sister after rehab and hopes to get a job where her sister is. She denied difficulty sleeping or increased anxiety/panic while she is in the hospital. Did not report increased tearfulness. Collateral: GAYE BEAL-[phone]: She last saw her yesterday. She seems better overall but had a bad day. We discussed her past suicide attempt. Sister has not been concerned about suicide since that time. She has been doing better overall since then. She has been smiling more and laughing more since then. Home Medications: No Known Allergies Medications Prior to Admission Medication Sig Dispense Refill ??? amLODIPine (Norvasc) 10 MG tablet Take 10 mg by mouth once daily (Patient not taking: Reported on 12/03/2022) ??? carvedilol (Coreg) 12.5 MG tablet Take 1 (one) tablet by mouth 2 times daily with morning and evening meal (Patient not taking: Reported on 12/03/2022) 60 tablet 0 ??? FeroSul 325 (65 Fe) MG tablet Take 325 mg by mouth daily with breakfast (Patient not taking: Reported on 12/03/2022) ??? FLUoxetine (PROzac) 20 MG capsule Take 1 (one) capsule by mouth once daily (Patient not taking:Reported on 12/03/2022) 30 capsule 0 ??? furosemide (Lasix) 20 MG tablet Take 20 mg by mouth once daily (Patient not taking: Reported on12/03/2022) ??? insulin glargine (Lantus/Semglee) 100 units/ml injection Inject 10 (ten) Units subcutaneously at bedtime ??? 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 Type 2 diabetes mellitus without complications (CMS/[facility]) Allergies No Known Allergies Family Medical History: Family History Problem Relation Name Age of Onset ??? Diabetes - Type 2 Father ??? Diabetes - Type 2 Paternal Grandmother Review of Systems: Constitutional: Did not voice fevers. Eyes: Did not voice visual loss Ears, nose, mouth, throat, and face: Did not voice hearing loss Respiratory: Did not voice acute cough Cardiovascular: Did not voice palpitations Gastrointestinal: Did not voice vomiting Genitourinary: Did not voice dysuria Integument/breast: Did not voice rash Musculoskeletal: Did not voice muscle weakness Neurological: Did not voice headaches Psychiatric: See HPI Physical Exam History Patient Vitals for the past 24 hrs: BP Temp Temp src Pulse Resp SpO2 Weight 12/11/22 0749 144/73 97.7 ??F (36.5 ??C) -- 86 16 94 % -- 12/11/22 0407 146/75 98.2 ??F (36.8 ??C) Oral 90 18 96 % (!) 140.6 kg (310 lb) 12/10/22 2341 141/81 97.9 ??F (36.6 ??C) Oral 93 18 100 % -- 02/07/23 1956 137/75 97.4 ??F (36.3 ??C) Oral 90 21 98 % -- 12/10/22 1617 142/75 97.4 ??F (36.3 ??C) Oral 95 18 92 % -- Physical Examination: General: Awake. Head: Normocephalic, atraumatic. Eyes: Vision grossly intact. Sclera white, conjunctiva nonerythematous. Ears: Hearing grossly intact. Lungs: Unlabored breathing. Mental Status Exam: Appearance:fairly groomed female, obese, lying in hospital bed, appears older than stated age Eye Contact: Fair Attitude toward examiner: Cooperative Speech: Spontaneous, Fluent, regular rate, rhythm and tone, spontaneous Language: No Delays Psychomotor: neutral Mood: I think I m ok Affect: somewhat restricted, but smiling appropriately Thought Process: Associations intact/linear/logical Thought Content: No si/hi/delusions Perception: denied hallucinations Fund of Knowledge: avg Insight: fair Judgement: fair Cognitive Functions: Orientation aox3 Attention/Concentration: fair Memory: intact Gait and Station-lying in bed MSK: normal tone Labs: EKG: Results for orders placed or performed during the hospital encounter of 12/02/22 EKG 12-LEAD Result Value Ref Range Ventricular Rate 77 BPM Atrial Rate 77 BPM P-R Interval 154 ms QRS Duration ms 88 ms Q-T Interval ms 416 ms QTC Calculation (Bezet) 470 ms Calculated P [place] 44 degrees Calculated R [place] 14 degrees Calculated T [place] 23 degrees Interpretation EKG NORMAL SINUS RHYTHM NORMAL ECG WHEN COMPARED WITH ECG OF 21-aug-2022 NO SIGNIFICANT CHANGE WAS FOUND Confirmed by HIRAL HIGGINS MD ([id number]) on 12/09/2022 1:25:51 PM TFT: No results for input(s): TSH, T3, T3FREE, T4, T4FREE in the last 69654 hours. A1c: Recent Labs Component Name 12/02/222031 HGBA1C 6.7* EAG 146 Lipid: Recent Labs Component Name 12/02/222032 CHOL 111 TRIG 143 HDL 8* LDLCALC 74 Other: BAL: No results for input(s): ETOH, ETHANOL, ETHANOLCALC in the last 20747 hours. Serum Acetaminophen: No results for input(s): ACETAMINO in the last 32785 hours. Serum Salicylate:No results for input(s): SALICYLATE in the last 17887 hours. Urine Drug Screen: No results for input(s): LABAMPH, AMPHETUR, [id number], LABBARB, BARBITURATUR, LABBENZ, BENZODIAZUR, LABCANN, THCUR, COCAINE, COCAINEUR, COCAINESCRN, METHADONE, METHADONEUR, LABOPIA, OPIATES, OPIOIDS, OPIATESUR, FENTANYL, FENT, FENTUR, FENTURSCN, LABPHEN, PCPUR, [id number] in the last 27807 hours. Assessment: Leeroy Canales is a 32 year old who is here following AKA for infection and psychiatry was consulted history of PTSD and depression. At present, she is not displaying evidence of recurrence of depression or PTSD symptoms and seems to be coping fairly well with new stressors and future life changes that will be needed. We discussed that PTSD and depression can arise following medical trauma and discussed signs to look out for and the availability of medication and therapy. At this time, she is not interested in psychotropic medication or therapy and can discuss with her pcp if concerns arise. Discussed this plan with sister as well who is on board. Lethality: Short term risk of suicide- low imminent risk Risk factors: recent AKA, hx suicide attempt, hx PTSD Protective factors: denied SI, plan or intent, reports support from sisters and mother, is able to engage in discussion about hobbies and continues to get enjoyment from cooking and being around family. She is future oriented and has been making plans for living situation and future employment. Shewill benefit from continued support from family who know the signs to look out for if depression orPTSD symptoms arise. Short term risk of harm to others- low Risk factors: trauma hx Protective factors: denied HI, anger to specific people or violence hx, no reported access to firearms I have seen and reviewed the available and relevant vital signs, labs, imaging, procedures, EKGs, allergies, and medications. DSM-5 Diagnosis: Z04. 6 for Encounter for general psychiatric examination PTSD, not currently active MDD, recurrent, in remission F33.4 Plan: -will give list of resources for therapy in discharge instructions should she want this -not interested in psychotropic medication at this time Strengths/Limitations: Patient's Strengths and Assets: Family/ Community support, Able to express needs and Recent historyof employment Patient's Limitations and Liabilities: physical health limitations Precautions: Precaution Orders Procedures ??? FALL PRECAUTIONS This patient was discussed with the attending physician, Dr. Case, who agrees with the above impression and plan. Will be seen by attending tomorrow. Brittney Bell MD UCTION GRIP Associated attestation - Marko Case MD - 12/11/2022 3:23 PM PRODUCTION GRIP I have discussed the following case with the resident, Dr. Bell, and agree with their documented assessment and plan. Date of Service: 12/11/2022 Marko Case MD Psychiatry * Jenifer Duenas MD - 12/06/2022 2:24 PM CSTAssociated Order(s): IP CONSULT TO INFECTIOUS DISEASES Images from the original note were not included. [facility] Infectious Diseases Consultation Patient's Primary Care Physician: No primary care provider on file. Reason for Consultation: Gram positive bacteremia Referring Physcian: Tommie Echevarria MD Name: Leeroy Canales Age: [age] year old 6 Chief Complaint/History of Present Illness HPI: Leeroy Canales is a 32 year old Black/ Americanfemale with medical history significant for DM type 2, history of recent fall in the bathroom with resulting trauma and non healing wound onleft foot, with necrotizing fascitis, initially Left ankle disarticulation cultures with Group B strep, Proteus mirabilis, 12/02/22, with subsequent Left AKA 12/05/22. She seen to have positive blood cultures collected from 12/02. Objective: Review of Systems General: no fatigue/fever/chills Skin: no rashes/lesions Eyes: no vision problems/no conjunctival lesions HENT: no oral lesion/no hearing problems Respiratory: no cough/sob Cardiovascular: no cp/palpitations Gastrointestinal: no nausea/diarrhea Genitourinary: no dysuria/hematuria Musculoskeletal: slight pain in left LE. Neurological: no olivo/seizures Psych: no depression/anxiety Past Medical History: Diagnosis Date ??? Type 2 diabetes mellitus without complications (CMS/HCC) Past Surgical History: Procedure Laterality Date ??? LEG AMPUTATION ABOVE KNEE Left 12/05/2022 Left; AMPUTATION ABOVE LEFT KNEE ??? Leg Amputation, Below Knee Left 12/02/2022 Left; LEFT ANKLE DISARTICULATION LEVEL 2 @ 2220 Social History Tobacco Use ??? Smoking status: Never ??? Smokeless tobacco: Never Vaping Use ??? Vaping Use: Never used Substance Use Topics ??? Alcohol use: Never ??? Drug use: Never Family History Problem Relation Name Age of Onset ??? Diabetes - Type 2 Father ??? Diabetes - Type 2 Paternal Grandmother No Known Allergies Exam Vitals: 12/06/22 0407 12/06/22 0733 12/06/22 0734 12/06/22 1149 BP: 134/72 120/73 118/78 Pulse: 83 82 81 84 Resp: 17 20 20 Temp: 97.9 ??F (36.6 ??C) 97.4 ??F (36.3 ??C) 97.9 ??F (36.6 ??C) SpO2: 98% 100% 97% Weight: Height: Temp (30hrs) Max:98 ??F (36.7 ??C) General appearance: alert cooperative no distress HEENT: perrl, neck supple/nt Lungs: clear to auscultation bilaterally Heart: regular rate and rhythm, S1, S2 normal, no murmur, click, rub or gallop, Abdomen: soft, non-tender; bowel sounds normal; no masses, no organomegaly, obese Extremities/Skin: LLE dressed wound vac in place, Rt LE with edema, no rash/lesion Lines: PIV left hand, 12/05/22 PIV right hand 12/03/22 MEDICATIONS FOR CURRENT ENCOUNTER: ?? SCHEDULED MEDICATIONS: ?? 0.9% NaCl injection 3 mL, Intracatheter, q8h ?? acetaminophen (Tylenol) tablet 500 mg, Oral, q6h ?? amLODIPine (Norvasc) tablet 10 mg, Oral, QDAY ?? cefTRIAXone (Rocephin) 2,000 mg in 0.9% NaCl IV 50 mL IVPB, Intravenous, q24h ?? FLUoxetine (PROzac) capsule 20 mg, Oral, QDAY ?? furosemide (Lasix) tablet 40 mg, Oral, BID ?? heparin injection 7,500 Units, Subcutaneous, TID ?? insulin glargine (Lantus) pen 10 Units, Subcutaneous, AT BEDTIME ?? insulin lispro (HumaLOG;ADMelog) 100 UNIT/ML pen 0-12 Units, Subcutaneous, q4h ?? insulin lispro (HumaLOG;ADMelog) 100 UNIT/ML pen 5 Units, Subcutaneous, TID WC ?? nystatin (Mycostatin) powder, Topical, TID ?? sodium bicarbonate tablet 650 mg, Oral, 4X/day ?? vancomycin (Vancocin) IV dose per pharmacy, Does not apply, DIRECTED ?? [COMPLETED] fluconazole (Diflucan) tablet 150 mg, Oral, Once ?? [COMPLETED] vancomycin (Vancocin) 1,250 mg in 250 mL NaCl IVPB Premix, Intravenous, Once Data Recent Labs Component Name 12/06/22 0401 12/05/22 1703 12/05/22 1006 WBC 19.5* 16.8* 18.6* HGB 7.6* 6.6* 7.8* HCT 25.2* 21.4* 25.8* PLTCOUNT 577* 493* 583* Recent Labs Component Name 12/06/22 0401 12/05/22 1006 12/04/22 1605 12/02/22195408/25/2231408/24/22 1404 08/24/22 0725 SODIUM - - - - 142 143 138 POTASSIUM 3.7 3.3* 4.3 - 3.6 3.7 5.2* CHLORIDE - - - - 107 103 110* CO2 20* 19* 16* - 26 30 20* BUN 33* 37* 36* - 13 9 8 CREATININE 2.57* 2.67* 3.31* - 1.58* 1.43* 1.42* GLUCOSE 142* 142* 238* - 211* 145* 165* CALCIUM 7.4* 6.7* 7.3* - 7.9* 8.2* 7.8* - = values in this interval not displayed. Recent Labs Component Name 12/02/22195408/25/2231408/24/22 1404 08/24/22 0725 08/22/22 0317 08/21/22 0847 ALBUMIN - 2.0* 2.1* 1.7* - 2.2* ALKPHOS 313* - - - - 87 ALT 38 - - - - 11 AST 47* - - - - 5 TBIL - - - - - 0.3 TPROT - - - - - 5.5* - = values in this interval not displayed. No results for input(s): CDIFFTOXINAB in the last 06816 hours. No results for input(s): SEDRATE in the last 06339 hours. No results for input(s): CK in the last 74639 hours. .No results for input(s): VANCOTROUGH, VANCOPEAK, VANCSERIES in the last 16376 hours. Invalid input(s): VANCORAND Recent Labs Component Name 12/02/22203108/22/22 0317 HGBA1C 6.7* 11.7* Recent Labs Component Name 12/03/22 1659 PHUA 5.0 UROBILINUA Negative RBCUA 11-* No results for input(s): FERRITIN in the last 21531 hours. Recent Labs Component Name 12/02/22 2041 CRP 25.2* No results for input(s): PROCALCITON in the last 10586 hours. Recent Labs Component Name 12/02/22 1955 BNP 551* Microbiology 12/03/22 Group B strep, Proteus mirabilis Radiology Pertinent radiology reports filed in chart and reviewed. Assessment Gram positive bacteremia GPBSs and GPCs tue vs real? Leukocytosis likely reactive post surgery. Left foot trauma/ necrotizing fascitis Post Left AKA Wound vac in place DM type 2 Essential hypertension Severe recurrent major 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 psychotic features/ PTSD Obesity Plan - Since presented with Left foot Necrotizing fascitis and now post amputation, will follow speciation of organisms to determine nature of infection, True bacteremia vs contamination. - she is on Ceftriaxone/Vancomycin, continue for now. - Follow up on repeat blood cultures from 12/05/20. - Monitor WBC count - Afebrile. - Sacral/coccygeal excoraition seen. - Left leg high amputation with source control. - Wound/wound vac care. >45 minutes spent on the care of this patient. > 50% was spent in counseling and coordinationof care that included the patient and the primay team. Recommendations conveyed to Med- 2. Jenifer Duenas MD [facility] infectious Diseases team-2 UCTION GRIP * Meera Gonsalez RD/LD - 12/03/2022 1:10 PM CSTAssociated Order(s): IP CONSULT TO NUTRITIONAL SERV Images from the original note were not included. Initial Nutrition Assessment Brief Synopsis: Patient is at Nutrition Risk; Specific criteria can be found in assessment below Nutrition Plan: Consistent CHO diet Nathaniel BID for wound healing (breakfast and dinner for absorption) mixed with 8- 10 fl oz juice, soda, or water (provides 90 kcal, 8.4 (9.8 FP) g CHO, 7g arginade, 7g glutamine, 300 mg Vitamin C, Zinc 9.5 mg) Recommendations to Physician: None Comments: RD consulted for MST of wounds. Pt sleepy during visit. RD educated pt on wound healing and Nathaniel. Handout provided. Pt accepted to try. Also provided brief edu on CHO Counting. Booklet provided. A1C 6.7%. Pt said she knows how to read nutrition label. Pt stated she ate breakfast. Ankle disarticulation yesterday. Plan for AKA. Assessment: Med/Surg History and Clinical Diagnoses: severe morbid obesity, poorly controlled diabetes, presenting with diabetic wet gangrene now s/p L ankle disarticulation on 12/02/22. will need AKA per notes Height: 170.2 cm (5' 7 ) Weight: (!) 145 kg (319 lb 10.7 oz) BMI: Body mass index is 50.07 kg/m??. BMI Range: Morbidly Obese Class 3 IBW/lb (Calculated) Female: 135, Recent Weights/Methods 04/24/2010 0928 08/21/2022 0813 12/02/2022 1731 12/03/2022 0128 Weight: 141.1 kg (311 lb) 128.8 kg (283 lb 14.4 oz) 129.3 kg (285 lb) 145 kg (319 lb 10.7 oz) Weight Method (Utilize Scales): -- Bedscale Stated Bedscale Wt Comments: monitoring Diet order accuracy Current diet order: Consistent Carb Standard Nutrition recommendation: agree with current nutrition order P.O.Intake for the past 48 hrs: No data recorded Supplement(s) Consumed- Last 48 hours None Food Allergies: No known food allergies GI Concerns: None Chewing/Swallowing: None Pain affecting intake: No Estimated Needs: KCAL: 2177-5192 (30-35 kcal/kg IBW) wound Protein (g): 95 (1.5 g/kg IBW) Fluid (ml): 1 ml/kcal Needs based on: (45.5kg) Recommended Access Route: PO Laboratory values: Recent Labs Component Name 12/03/22 0242 12/02/22195408/25/2231408/22/2231608/21/22 0847 BUN 30* 27* 13 - 7 CREATININE 2.91* 2.95* 1.58* - 1.62* NA 134* 139 - - - POTASSIUM 3.5 3.9 3.6 - 2.9* CL 106 106 - - - CO2 18* 17* 26 - 28 GLUCOSE 114 53* 211* - 180* CALCIUM 7.3* 7.6* 7.9* - 8.2* PROT - 6.0 - - - ALB - 0.8* - - - TBILI - 1.9* - - - ALKPHOS - 313* - - 87 ALT - 38 - - 11 AST - 47* - - 5 ANIONGAP 14 20* 9 - 10 BCR 10 9 - - - OSMOLALITY 285 291 - - - AGRATIO - 0.2* - - - EGFR 22* 21* 45* - 44* - = values in this interval not displayed. Medications: Current Facility-Administered Medications Medication ??? 0.9% NaCl infusion rate and volume ??? 0.9% NaCl injection 3 mL And ??? 0.9% NaCl injection 1-10 mL ??? acetaminophen (Tylenol) tablet 500 mg ??? cefepime (Maxipime) 2,000 mg in 0.9% NaCl IV 50 mL IVPB ??? FLUoxetine (PROzac) capsule 20 mg ??? heparin injection 7,500 Units ??? HYDROmorphone (Dilaudid) injection 0.2 mg ??? insulin lispro (HumaLOG;ADMelog) 100 UNIT/ML pen 0-12 Units ??? oxyCODONE (immediate release) (Roxicodone) tablet 5 mg Or ??? oxyCODONE (immediate release) (Roxicodone) tablet 10 mg Skin/Wound: foot wound- gangrene, plan for AKA Education needed: Wound Healing Education Provided: Yes Expected level of compliance: Fair;Needs reinforcement Nutrition Care Process (1) Nutrition Diagnostic [...] stay Nutrition Goal Progress: New goal established Ascom: 4534 UCTION GRIP * Graeme Rodgers MD - 12/02/2022 10:31 PM CST Images from the original note were not included. [facility] Vascular Surgery Consult Note Name: Leeroy Canales : 1990 Date of Service: 12/02/22 Attending Surgeon: Vishal Reason for Consult: wet gangrene of the foot HPI: This is a 32 year old female with history of uncontrolled T2DM, obesity, HTN, HFpEF, severe recurrent depression presenting with blistering and foul odor from her left foot. She reports minimal pain to the foot with palpation, however reports pain with ambulation on the left. Patients mother reports that she fell in the shower ~2 weeks ago and has had a small wound since then. Her sister reports that the wound acutely worsened over the past 3 days. They noted a foul smell and draining clear fluid and brought the patient to the ED. Patient and her family deny problems with wound healing in the past. Past Medical History: Diagnosis Date ??? Type 2 diabetes mellitus without complications (CMS/HCC) No past surgical history on file. Family History Problem Relation Name Age of Onset ??? Diabetes - Type 2 Father ??? Diabetes - Type 2 Paternal Grandmother Social History Socioeconomic History ??? [...] Social Determinants of Health Financial Resource Strain: Not on file Food Insecurity: No Food Insecurity ??? Worried About Running Out of Food in the Last Year: Never true ??? Ran Out of Food in the Last Year: Never true Transportation Needs: Not on file Stress: Not on file Housing Stability: Not on file No Known Allergies Current Outpatient Medications: ??? amLODIPine (Norvasc) 10 MG tablet, Take 10 mg by mouth once daily, Disp: , Rfl: ??? carvedilol (Coreg) 12.5 MG tablet, Take 1 (one) tablet by mouth 2 times daily with morning and evening meal, Disp: 60 tablet, Rfl: 0 ??? FeroSul 325 (65 Fe) MG tablet, Take 325 mg by mouth daily with breakfast, Disp: , Rfl: ??? FLUoxetine (PROzac) 20 MG capsule, Take 1 (one) capsule by mouth once daily, Disp: 30 capsule, Rfl: 0 ??? furosemide (Lasix) 20 MG tablet, Take 20 mg by mouth once daily, Disp: , Rfl: ??? insulin glargine (Lantus/Semglee) 100 units/ml injection, Inject 10 Units subcutaneously at bedtime, Disp: , Rfl: ??? insulin lispro (HumaLOG) 100 UNIT/ML vial, Inject 5 Units subcutaneously 3 times daily with meals, Disp: , Rfl: Data: Labs: Recent Labs Component Name 12/02/22195408/22/2231608/21/22 0846 WBC 42.0* 9.6 11.7* HGB 8.9* 8.1* 8.6* HCT 28.3* 26.8* 28.6* MCV 71.3* 88.2 88.0 Recent Labs Component Name 12/02/22195408/25/2231408/24/22 1404 08/24/22 0725 08/23/2231308/22/22316 NA 139 - - - - - CL 106 - - - - - CO2 17* 26 30 20* 28 26 BUN 27* 13 9 8 6* 7 CREATININE 2.95* 1.58* 1.43* 1.42* 1.37* 1.49* CALCIUM 7.6* 7.9* 8.2* 7.8* 8.0* 8.1* MAGNESIUM - - - 2.0 1.7 1.8 PHOS - 4.0 4.1 4.5 3.2 3.2 Recent Labs Component Name 12/02/22195408/21/22 0847 PROT 6.0 - ALB 0.8* - TBILI 1.9* - AST 47* 5 ALT 38 11 ALKPHOS 313* 87 No results for input(s): PROTIME, INR, PTT in the last 45087 hours. No results for input(s): PHART, PO2ART, KAZ4OCF, BEART in the last 25101 hours. No intake/output data recorded. Imaging: No results found. Review of Systems: Constitutional: Denies fever, chills, weight loss Eyes: Denies visual changes ENT/Mouth: Denies hearing loss Cardiovascular: Denies chest pain/tightness Resp: Denies wheezing, cough GI: Denies constipation, diarrhea, nausea/voming Ascites w/in 30 days: No : Denies dysuria, hematuria Musculoskeletal: Denies arthritis, back pain, or difficulty walking Neurological: Denies headaches Psychiatric: Denies depression Hem/Lymph: Denies, easy bruising, DVT or PE, bleeding or clotting disorders Physical Exam: BP 142/95 Pulse 108 Temp 98.5 ??F (36.9 ??C) (Oral) Resp 18 Ht 1.702 m (5' 7 ) Wt 129.3 kg (285 lb) SpO2 98% Gen: Obese female in no acute distress HEENT: Head NC/AT. EOMI. Neck without deformity CV: tachycardic sinus rhythm Pulm: Non labored breathing on RA Abdomen: Soft, non distended. Not peritoneal. Not TTP Extremities: Bilateral lower extremity edema. Plantar surface of left foot is necrotic with skin sloughing, foul odor and weeping clear fluid. Area of fluctuance to the dorsum of the lateral foot. Dopplerable PT/DPs. Left lower leg with 3x3cm area of fluctuance on the lateral aspect of the sher. Left lower leg with blistering and weeping of clear fluid to the mid calf/sher. RLE without evidence of wounds. MSK: No obvious trauma Neuro: ISA Psych: blunted affect Assessment/Plan: This is a 32 year old female with history of uncontrolled T2DM, obesity, HTN, HFpEF, severe recurrent depression presents with history/physical and imaging consistent with wet gangrene of the lower extremity. At presentation her WBC is 42 and blood glucose 53. XR of L foot reveals gas in the subcutaneous tissue. Patient and her family are educated on the nature of the disease process and the emergent nature of operative management. Patient is A&Ox4. She has decided to make her mother her medical decision maker at this time. Patient as well as her mother are in agreement about the necessity of undergoing procedure at this time. All patient and family's questions and concerns were answered. - To OR for left ankle disarticulation, possible below knee amputation, possible above knee ampuation as a Level II - Type and Screen - NPO - mIVF - requires admission to MICU - consent acquired with patient and her choice of medical decision maker Suellen Resendiz (mother). Images in the chart. Patient has been seen and discussed with my in house fellow and attending physician Dr. Rodgers. Radha García DO Resident Physician [facility] Department of Surgery 12/02/2022 10:31 PM Attending Physician Supervisory Note I personally interviewed and examined the patient and agree with the doctor above. 32 year old female with severe morbid obesity (BMI 45) and poorly controlled diabetes (last a1c wasover 11 in August 2022) She presented to the ER with diabetic wet gangrene of the left foot with gas gangrene on plain x-ray Her left foot is boggy and tender with necrotic plantar foot wound, desquamation, and very foul smelling drainage She has a leukocytosis of over 40,000 and acidosis with bicarb of 17 She has acute renal insufficiency with serum creatinine of 2.95 (baseline appears to be around 1.4 based on previous labs here) Plan is for emergent source control operation with left ankle disarticulation, possible below knee guillotine amputation Will eventually need to return to the OR later this week for formal amputation- BKA vs AKA I discussed this with her in the pre-op holding area Date of service: 12/02/2022 Graeme Rodgers MD UCTION GRIP documented in this encounter OR Notes * Brief Op Note - Tyrel Gilliam MD - 12/05/2022 3:05 PM CST Brief Op Note Procedure: AMPUTATION ABOVE LEFT KNEE Patient Name: Leeroy Canales Date of Service: 12/05/2022 Pre-Op Diagnosis: Gangrene Post-Op Diagnosis: left lower extremity infection Surgeon(s) and Role: * Graeme Rodgers MD - Primary * Tyrel Gilliam MD - Resident - Assisting Wet End Supervisor(s): Mynor Vargas MD - resident Anesthesia Type: general ETT Complications: none apparent Findings: copious oedema. incision closed with wili and incisional wound vacuum. EBL: blood loss of 20 ml Urine Output : 125 mL IV Fluid Intake: per anaesthesia Drains: * No LDAs found * Specimen(s): ID Type Source Tests Collected by Time Destination A : Left above the knee amputation Gross only Leg, Left PATHOLOGY TISSUE Graeme Rodgers MD 12/05/2022 1517 Implant(s): * No implants in log * Tyrel Gilliam MD UCTION GRIP * Operative - Graeme Rodgers MD - 12/05/2022 3:05 PM CST Operative Report NAME: LEEROY CANALES : 1990 AGE: 32 PROC DATE: 12/05/2022 SEX: F SURGEON: Tyrel Gilliam MD ATTENDING: Graeme Rodgers MD RESIDENT: Tyrel Gilliam M.D. PREOPERATIVE DIAGNOSIS: Left lower extremity infection. POSTOPERATIVE DIAGNOSIS: Left lower extremity infection. PROCEDURE PERFORMED: Left above-knee amputation. ANESTHESIA: General. BRIEF HISTORY: This is a 32-year-old female who presented with severe infection in her left foot and underwent a left ankle disarticulation. She required formalization of her amputation and was brought to the operating room for a left above-knee amputation. After discussion of the risks, benefits, and alternatives to the procedure, consent was obtained and is present in the chart. DESCRIPTION OF PROCEDURE: The patient was brought to the operating room and placed supine on the operating room table. A timeout was performed identifying the patient, procedure, correct laterality, and that all special equipment needed was in the room. Once appropriate anesthesia was obtained, theleft lower extremity was prepped and draped in the usual sterile fashion. A skin marker was used todelineate a fishmouth incision above the left knee and a #10 blade was used to incise the skin along this line. Electrocautery was used to dissect down to the femur on the anterior surface and to release the muscles on the lateral and medial sides. There were massive amounts of oedema owing to the patient's baseline lymphedema. Once the femur was adequately exposed and the left greater saphenous vein ligated successfully, the femoral neurovascular bundle was identified. This was clamped with haemostats and transected and the proximal end was suture ligated with a 2-0 silk. The distal end was tied off with a 2-0 silk. The periosteum of the femur was stripped away using a laparotomy pad. An oscillating bone saw was brought onto the field and the femur transected at a distance of approximately 5 cm proximal to the skin incision. The remainder of the soft tissues were transected with an amputation knife. Haemostasis in the stump was then achieved using a combination of stick ties and electrocautery. Once the stump appeared clean and dry, the fascia was brought together using 2-0 Vicryl and the skin was stapled. A wound vacuum was placed along the incision and connected to 125 mmHg of suction. At completion of the case, all sponge and instrument counts were reported as correct. The patient tolerated the procedure and was extubated and transferred to the PACU in stable condition. FINDINGS: The left below-knee amputation was performed and wound VAC placed on the incision. ESTIMATED BLOOD LOSS: 20 mL FLUIDS: Per anesthesia. URINE OUTPUT: 125 mL COMPLICATIONS: None apparent. SPECIMENS: None. DISPOSITION: PACU, then floor. CONDITION: Stable. Tyrel Gilliam MD I was present for all portions of this procedure Date of service: 12/05/2022 Graeme Rodgers MD CM/hanh .[id number] Doc ID: [id number] Voice Job ID: [id number] UCTION GRIP * Operative - Graeme Rodgers MD - 12/02/2022 11:39 PM CST Operative Report NAME: LEEROY CANALES DOB: 1990 AGE: 32 PROC DATE: 12/02/2022 SEX: F SURGEON: Rafa Newman MD ATTENDING: Graeme Rodgers M.D. MOBILITY SCOOTER REPAIRER: Rafa Newman M.D., resident physician PREOPERATIVE DIAGNOSIS: Gangrene. POSTOPERATIVE DIAGNOSIS: Gangrene. SURGERY PERFORMED: Left ankle disarticulation. ANESTHESIA: General endotracheal anesthesia. INDICATIONS: The patient is a pleasant 32-year-old female with poorly controlled diabetes, who presented acutely with a gangrenous left foot that was necrotic to the hindfoot without potential for salvage below the ankle. She is recommended to undergo ankle disarticulation versus possible above or below-knee amputation. Given her acute illness and degree of illness, she was taken as a leveled case, which she understood and agreed to have surgery. DETAILS OF THE OPERATION: The patient was brought into the operating room and transferred to the operating table in supine position. Preinduction and preincision safety checklist were used to verify the correct patient, procedure, and all the critical information prior to beginning the case. The patient was then prepped and draped in standard fashion. A circumferential incision was made around the ankle circumferentially down to the bone. The joint space just below the tibia was entered sharplyand cartilaginous attachments were again transected with our skin knife around the joint capsule. Once the foot was fully disarticulated and removed from the field, tibial vessels were clamped with Ke llys and ligated with 2-0 silk. Once bleeding was controlled, the wound was dressed with Betadine-soaked Kerlix, ABDs, Kerlix, and an Gabe bandage. The patient tolerated the procedure well and was taken to the postanesthesia care unit in stable condition. SPECIMENS: Left foot and wound cultures. SPONGE, LAP, AND INSTRUMENT COUNTS: Correct x3 at the conclusion of the case. PACKS, DRAINS, CATHETERS: None. ESTIMATED BLOOD LOSS: Minimal. IV FLUIDS: Per anesthesia. COMPLICATIONS: None. IMPLANTS: None. CONDITION AT DISCHARGE: Stable. PATIENT DISPOSITION: Medical ICU. Rafa Newman MD I was present for all portions of this procedure Date of service: 12/02/2022 Graeme Rodgers MD ROSEY/sri .[id number] Doc ID: [id number] Voice Job ID: [id number] UCTION GRIP * Brief Op Note - Rafa Newman MD - 12/02/2022 11:20 PM CST Brief Op Note Procedure: LEFT ANKLE DISARTICULATION LEVEL 2 @ 2220 Patient Name: Leeroy Canales Date of Service: 12/02/2022 Pre-Op Diagnosis: Gangrene (CMS/HCC) [I96] Post-Op Diagnosis: Same Surgeon(s) and Role: * Graeme Rodgers MD - Primary * Rafa Newman MD - Resident - Assisting Wet End Supervisor(s): Anesthesia Type: general ETT Complications: none Findings: Gross purulence to level of ankle, well perfused tissue. Wound left open, dressed with surgicel, betadine soaked Kerlix. EBL: minimal blood loss Urine Output : 0cc IV Fluid Intake: Per anesthesia Drains: * No LDAs found * Specimen(s): * No specimens in log * Implant(s): * No implants in log * Rafa Newman MD UCTION GRIP documented in this encounter ED Notes * Jeanna Miller RN - 12/02/2022 10:52 PM CST Report given to surgery RN. UCTION GRIP * Himanshu Espino MD - 12/02/2022 8:26 PM CST [facility] ED Attending Note Patient was seen with Dr. Espino CC: Leeroy Canales is a 32 year old female who presents to the ED today with a chief complaint of left foot wound. HPI: Patient states left foot pain onset a week ago. Patient c/o pain with weight and difficulty walking. Patient reports her sister is her main pepper cutter and home health care is not involved. Patient's sister reports patient receives standard dose of insulin for DM but has no way of monitoring blood glucose. Patient's sister also reports wound care that consists of wrapping and elevation for bilateral lower extremity edema. Patient's sister reports water pill for high BP, but denies any other medications. Patient also reports painless progressive vision loss. No other complaints or modifying factors at this time. PMH: Past Medical History: Diagnosis Date ??? Type 2 diabetes mellitus without complications (CMS/HCC) No past surgical history on file. Family History Problem Relation Name Age of Onset ??? Diabetes - Type 2 Father ??? Diabetes - Type 2 Paternal Grandmother Social History Tobacco Use ??? Smoking status: Never ??? Smokeless tobacco: Never Substance Use Topics ??? Alcohol use: Never Home Medications: ??? amLODIPine (Norvasc) 10 MG tablet ??? carvedilol (Coreg) 12.5 MG tablet ??? FeroSul 325 (65 Fe) MG tablet ??? FLUoxetine (PROzac) 20 MG capsule ??? furosemide (Lasix) 20 MG tablet ??? insulin glargine (Lantus/Semglee) 100 units/ml injection ??? insulin lispro (HumaLOG) 100 UNIT/ML vial Allergies: No Known Allergies Review of Systems: ROS germane to chief complaint included within HPI. Additional positives bilateral lower extremity edema. Vitals: 12/02/22 1731 12/02/22 1735 12/02/22 1935 12/02/22 193 BP: (!) 151/108 142/95 Pulse: 108 Resp: 18 Temp: 98.5 ??F (36.9 ??C) SpO2: (!) 89% 94% 98% Weight: 129.3 kg (285 lb) Height: 1.702 m (5' 7 ) Physical Exam: Physical Exam Vitals and nursing note reviewed. Constitutional: General: She is not in acute distress. Appearance: Normal appearance. She is well-developed. Comments: Morbidly obese. HENT: Head: Normocephalic and atraumatic. Right Ear: External ear normal. Left Ear: External ear normal. Nose: No congestion. Mouth/Throat: Mouth: Mucous membranes are moist. Eyes: Extraocular Movements: Extraocular movements intact. Conjunctiva/sclera: Conjunctivae normal. Comments: Blurred vision bilaterally. Neck: Thyroid: No thyromegaly. Vascular: No JVD. Trachea: Phonation normal. No tracheal deviation. Cardiovascular: Rate and Rhythm: Regular rhythm. Tachycardia present. Heart sounds: S1 normal and S2 normal. No murmur heard. Pulmonary: Effort: Pulmonary effort is normal. No respiratory distress. Breath sounds: Normal breath sounds. No stridor. No rhonchi. Abdominal: General: There is no distension. Palpations: Abdomen is soft. Tenderness: There is no abdominal tenderness. Musculoskeletal: General: Swelling present. No deformity. Cervical back: Normal range of motion. No muscular tenderness. Comments: 3+ pitting edema to bilateral lower extremities. 2+ DP, PT, and radial pulses throughout Skin: General: Skin is warm and dry. Capillary Refill: Capillary refill takes less than 2 seconds. Findings: No rash. Comments: Bilateral LE skin thickening. Large foot blisters. LLE third digit has a darkened appearance. Left foot has necrotic tissue to the sole, foul smelling. Neurological: Mental Status: She is alert and oriented to person, place, and time. Cranial Nerves: No cranial nerve deficit. Sensory: No sensory deficit. Motor: No weakness or abnormal muscle tone. Psychiatric: Behavior: Behavior normal. MDM: Problems: Severe acute problems: 1. Failure to Thrive DDx: Includes but is not limited to uncontrolled DM vs uncontrolled HTN vs CHF vs pitting edema 2/2CHF, lymphedema vs consider but less likely: DVT vs hyperlipidemia vs other 2. Left Foot Wound DDx: Includes but is not limited to blister vs cellulitis vs wet gangrene vs consider but less likely abscess vs NSTI vs other Initial Plan: Labs, antibiotics, wound care consult, reassess Orders placed: Diagnostic: Orders Placed This Encounter ??? CULTURE BLOOD ??? XR CHEST 2VW ??? XR FOOT LEFT 3VW OR MORE ??? CT FOOT LEFT W CONTRAST ??? CBC W AUTO DIFFERENTIAL ??? COMPREHENSIVE METABOLIC PANEL ??? LACTIC ACID BLOOD REFLEX TO REPEAT ??? TROPONIN I ??? B-TYPE NATRIURETIC PEPTIDE ??? HCG BETA BLOOD QUANTITATIVE ??? DIFFERENTIAL MANUAL ??? HEMOGLOBIN A1C ??? LIPID PROFILE ??? URINALYSIS W/MICROSCOPIC NO CULTURE ??? C-REACTIVE PROTEIN ??? LYTES (NA K CL) URINE RANDOM PANEL ??? CREATININE URINE RANDOM ??? ERYTHROCYTE SEDIMENTATION RATE ??? VANCOMYCIN LEVEL RANDOM ??? IP CONSULT TO WOUND NURSE ??? IP CONSULT TO GENERAL SURGERY ??? EKG 12-LEAD ??? Tdap (dczormt-ghsjycyidx-jtzaq pertussis) (Boostrix) (7y+) injection 0.5 mL ??? dextrose IV 25 g ??? DISCONTD: albumin human 25 % infusion 50 g ??? cefepime (Maxipime) 2,000 mg in 0.9% NaCl IV 50 mL IVPB ??? vancomycin (Vancocin) IV dose per pharmacy ??? clindamycin (Cleocin) 900 mg in 50 mL D5W IVPB ??? morphine injection 4 mg ??? glucose (Diabetic Use) (Dex4 Glucose) oral liquid ??? glucose (Diabetic Use) oral gel ??? glucose chew tablet 4 tablet ??? OR Linked Order Group ??? dextrose 10 % IV bolus ??? dextrose 10 % IV bolus ??? glucagon (Glucagen) injection 1 mg ??? DISCONTD: insulin glargine (Lantus) pen 19 Units ??? insulin lispro (HumaLOG;ADMelog) 100 UNIT/ML pen 0-6 Units ??? vancomycin (Vancocin) 2,500 mg in 500 mL NaCl IVPB Premix ??? lactated ringers IV bolus Medications: Medications cefepime (Maxipime) 2,000 mg in 0.9% NaCl IV 50 mL IVPB (0 g Intravenous Stopped 12/02/222138) vancomycin (Vancocin) IV dose per pharmacy (has no administration in time range) clindamycin (Cleocin) 900 mg in 50 mL D5W IVPB (0 mg Intravenous Stopped 12/02/224) glucose (Diabetic Use) (Dex4 Glucose) oral liquid (has no administration in time range) glucose (Diabetic Use) oral gel (has no administration in time range) glucose chew tablet 4 tablet (has no administration in time range) dextrose 10 % IV bolus (has no administration in time range) Or dextrose 10 % IV bolus (has no administration in time range) glucagon (Glucagen) injection 1 mg (has no administration in time range) insulin lispro (HumaLOG;ADMelog) 100 UNIT/ML pen 0-6 Units (has no administration in time range) vancomycin (Vancocin) 2,500 mg in 500 mL NaCl IVPB Premix (2,500 mg Intravenous $ New Bag/Syringe 12/02/222112) lactated ringers IV bolus (has no administration in time range) Tdap (stjhgmi-rhbslsbtvs-nlxtx pertussis) (Boostrix) (7y+) injection 0.5 mL (0.5 mL Intramuscular $Given 12/02/222109) dextrose IV 25 g (25 g Intravenous $ Given 12/02/222113) morphine injection 4 mg (4 mg Intravenous $ Given 12/02/222129) Results reviewed: Labs Reviewed CBC W AUTO DIFFERENTIAL - Abnormal; Notable for the following components: Result Value WBC 42.0 (*) Hemoglobin 8.9 (*) Hematocrit 28.3 (*) MCV 71.3 (*) MCH 22.4 (*) RDW-CV 19.2 (*) Platelet Count 556 (*) nRBC Absolute 0.04 (*) nRBC Auto 0.1 (*) All other components within normal limits COMPREHENSIVE METABOLIC PANEL - Abnormal; Notable for the following components: BUN 27 (*) Creatinine 2.95 (*) CO2 17 (*) Glucose 53 (*) Calcium 7.6 (*) Albumin 0.8 (*) Bilirubin Total 1.9 (*) Alkaline Phosphatase 313 (*) AST 47 (*) Anion Gap 20 (*) Albumin/Globulin Ratio 0.2 (*) eGFR by CKD-EPI 21 (*) All other components within normal limits B-TYPE NATRIURETIC PEPTIDE - Abnormal; Notable for the following components: BNP 551 (*) All other components within normal limits DIFFERENTIAL MANUAL - Abnormal; Notable for the following components: Neutrophils Absolute Manual 39.06 (*) Lymphocyte Absolute Manual 0.84 (*) Monocytes Absolute Manual 2.10 (*) Neutrophil % Manual 90 (*) Lymphocyte % Manual 2 (*) Platelet Estimate Increased (*) Microcytes Few (*) Target Cells 2+ (*) Ovalocytes Occasional (*) Large Platelet Count Occasional (*) All other components within normal limits LIPID PROFILE - Abnormal; Notable for the following components: HDL 8 (*) All other components within normal limits C-REACTIVE PROTEIN - Abnormal; Notable for the following components: C-Reactive Protein 25.2 (*) All other components within normal limits ERYTHROCYTE SEDIMENTATION RATE - Abnormal; Notable for the following components: Erythrocyte Sedimentation Rate Westergren >130 (*) All other components within normal limits LACTIC ACID BLOOD REFLEX TO REPEAT - Normal TROPONIN I - Normal CULTURE BLOOD CULTURE BLOOD HCG BETA BLOOD QUANTITATIVE HEMOGLOBIN A1C URINALYSIS W/MICROSCOPIC NO CULTURE LYTES (NA K CL) URINE RANDOM PANEL CREATININE URINE RANDOM TYPE + SCREEN PANEL XR CHEST 2VW (Results Pending) XR FOOT LEFT 3VW OR MORE (Results Pending) CT FOOT LEFT W CONTRAST (Results Pending) Pulse Ox: Sat: 94% on RA; Interpretation: WNL monitoring tech: SR, nl rate, no ectopy Consults: Findings and studies above were discussed with ACS. Procedures: No POCUS: No Progress: Course: 1954- Labs reviewed by ED provider display elevated BUN of 27, Creatinine 2.95, low glucose of 53, elevated WBC of 42, BNP elevated to 551, albumin of 0.8. Hypertensive and tachycardic at this time. Will order urine studies to evaluate for nephrotic syndrome vs possible UTI. Will order CRP and ESR. 2029- Will start broad spectrum antibiotics. Pending CT Left Foot Contrast and start of antibiotics. Discussed all the pertinent aspects of the case with ACS who will see the patient. Per ACS recommendations, will obtain CT left foot with contrast. 2022 - Will update Tdap and tetanus. Will wait to administer antibiotics pending lab results. 2024 - Weaning off Nitro drip. 2099 - Patient needs concurrent fluids and is in heart failure. Will get 250 cc bolus for tachycardia in setting of heart failure, which is unstaged. Patient consented for CT imaging with contrast. 2145 - Benefit of contrast outweigh risks in this patient. Will obtain CT left foot with contrast. 2225 - Will go to OR today. Will order a type and screen. Will admit to MICU, patient amenable to plan. 230- Patient taken to OR prior to admission order being placed. Critical care: No Disposition: Taken to OR prior to admission order being placed. Clinical Impression: 1. Hypoxia 2. Swelling of left foot 3. Left foot infection By signing my name below, I, Mary Louise , attest that this documentation has been prepared under the direction and in the presence of Dr. Espino. Signed: Coretta Greer. By signing my name below, I, Angi Garvey , attest that this documentation has been prepared under the direction and in the presence of Dr. Espino. Signed: Coretta Rogers. I personally performed the services described in this documentation. All medical record entries made by the alyciaibe were at my direction and in my presence. I have reviewed the chart and agree that the record reflects my personal performance and is accurate and complete. Electronically signed: Dr. Himanshu Espino UCTION GRIP * Trisha Evans PA-C - 12/02/2022 6:58 PM CST Bed: [facility] Expected date: Expected time: Means of arrival: Comments: Juancho Canales UCTION GRIP * Harpreet Roth - 12/02/2022 6:56 PM CST Pt present in ED waiting area att. UCTION GRIP * Teri Oleary RN - 12/02/2022 6:34 PM CST Pt presents with c/o blisters/sores to right foot which is draining clear drainage with foul odor for 1 week. Pedal pulse present. Strong odor present. See media for images. UCTION GRIP * Harpreet Roth - 12/02/2022 5:36 PM CST SHIRA Williamson, and Toñito Hensley, informed of the pt's O2 saturation. UCTION GRIP documented in this encounter Miscellaneous Notes * Coding Query - Levi Cooper MD - 12/04/2022 1:23 PM CST DOCUMENTATION CLARIFICATION REQUEST TO: Dr. Cooper FROM: Hiral RAYMUNDO RN CCDS Email: [email or web address] Please clarify and document if the patient is being monitored/treated for - Gram positive sepsis related to wet gangrene of left foot, POA - Other explanation of clinical findings (please specify) - Unable to determine (no explanation for clinical findings) The medical record reflects the following clinical evidence: Clinical Indicators: On admission: HR 108, RR 34, WBC 42, blood Cx + Gram-positive bacilli H&P: #Wet Gangrene Left Foot #Leukocytosis - Wound culture growing light gram-positive bacilli and rare gram-positive cocci Risk Factor(s): wet gangrene left foot Treatment: IV Cefepime, IV Clindamycin, IV Vancomycin, blood and wound Cx, plan for AKA Please document your clinical opinion in the progress notes and discharge summary including the definitive and/or presumptive diagnosis, (suspected or probable), related to the above clinical findings. Please include clinical findings supporting your diagnosis. Select Edit, then F2 to respond This is highly likely due to her infection since the both of the in original wound infection and the blood infection are same organism. Will include this in my documentation. UCTION GRIP documented in this encounter Plan of Treatment Upcoming Encounters Date Type Department Care Team (Late st Contact Info) Description 11/22/2024 1:30 PM PRODUCTION GRIP Office Visit [facility] - Infectious Disease [address] [place] [address], [place] [address] Kash Ha MD [address] [place] [id number] Pending Results Name Type Priority Associated Diagnoses Date/Time TRANSFUSE RED BLOOD CELL LEUKOREDUCED UNIT(S), 1 Units NSG BLD TRANSFUSION Routine 12/03/2022 6:10 AM PRODUCTION GRIP TRANSFUSE RED BLOOD CELL LEUKOREDUCED UNIT(S) NSG BLD TRANSFUSION Routine 12/03/2022 6 :05 AM PRODUCTION GRIP documented as of this encounter Procedures Procedure Name Priority Date/Time Associated Diagnosis Comments GLUCOSE - POINT OF CARE Routine 12/12/2022 10:29 AM PRODUCTION GRIP GLUCOSE - POINT OF CARE Routine 12/12/2022 8:51 AM PRODUCTION GRIP CBC W AUTO DIFFERENTIAL Routine 12/12/2022 1:44 AM PRODUCTION GRIP BASIC METABOLIC PANEL (CALCIUM TOTAL) Routine 12/12/2022 1:44 AM PRODUCTION GRIP GLUCOSE - POINT OF CARE Routine 12/11/2022 11:13 PM PRODUCTION GRIP GLUCOSE - POINT OF CARE Routine 12/11/2022 8:44 PM PRODUCTION GRIP GLUCOSE - POINT OF CARE Routine 12/11/2022 4:17 PM PRODUCTION GRIP GLUCOSE - POINT OF CARE Routine 12/11/2022 2:34 PM PRODUCTION GRIP GLUCOSE - POINT OF CARE Routine 12/11/2022 12:32 PM PRODUCTION GRIP GLUCOSE - POINT OF CARE Routine 12/11/2022 7:47 AM PRODUCTION GRIP GLUCOSE - POINT OF CARE Routine 12/11/2022 4:05 AM PRODUCTION GRIP RBC MORPHOLOGY Routine 12/11/2022 12:20 AM PRODUCTION GRIP CBC W AUTO DIFFERENTIAL Routine 12/11/2022 12:20 AM PRODUCTION GRIP BASIC METABOLIC PANEL (CALCIUM TOTAL) Routine 12/11/2022 12:20 AM PRODUCTION GRIP GLUCOSE - POINT OF CARE Routine 12/10/2022 11:39 PM PRODUCTION GRIP GLUCOSE - POINT OF CARE Routine 12/10/2022 7:54 PM PRODUCTION GRIP GLUCOSE - POINT OF CARE Routine 12/10/2022 4:15 PM PRODUCTION GRIP CARDIAC EKG ORDER 12/10/2022 12: 04 PM PRODUCTION GRIP GLUCOSE - POINT OF CARE Routine 12/10/2022 11:36 AM PRODUCTION GRIP GLUCOSE - POINT OF CARE Routine 12/10/2022 8:59 AM PRODUCTION GRIP GLUCOSE - POINT OF CARE Routine 12/10/2022 5:24 AM PRODUCTION GRIP GLUCOSE - POINT OF CARE Routine 12/10/2022 12:40 AM PRODUCTION GRIP DIFFERENTIAL MANUAL Routine 12/10/2022 1 2:36 AM PRODUCTION GRIP CBC W AUTO DIFFERENTIAL Routine 12/10/2022 12:36 AM PRODUCTION GRIP BASIC METABOLIC PANEL (CALCIUM TOTAL) Routine 12/10/2022 12:36 AM PRODUCTION GRIP GLUCOSE - POINT OF CARE Routine 12/09/2022 8:51 PM PRODUCTION GRIP GLUCOSE - POINT OF CARE Routine 12/09/2022 4:07 PM PRODUCTION GRIP GLUCOSE - POINT OF CARE Routine 12/09/2022 12:58 PM PRODUCTION GRIP GLUCOSE - POINT OF CARE Routine 12/09/2022 7:59 AM PRODUCTION GRIP GLUCOSE - POINT OF CARE Routine 12/09/2022 4:47 AM PRODUCTION GRIP DIFFERENTIAL MANUAL Routine 12/09/2022 1 :29 AM PRODUCTION GRIP CBC W AUTO DIFFERENTIAL Routine 12/09/2022 1:29 AM PRODUCTION GRIP BASIC METABOLIC PANEL (CALCIUM TOTAL) Routine 12/09/2022 1:29 AM PRODUCTION GRIP GLUCOSE - POINT OF CARE Routine 12/09/2022 12:47 AM PRODUCTION GRIP GLUCOSE - POINT OF CARE Routine 12/08/2022 9:39 PM PRODUCTION GRIP GLUCOSE - POINT OF CARE Routine 12/08/2022 5:14 PM PRODUCTION GRIP VANCOMYCIN LEVEL RANDOM Timed 12/08/2022 12:56 PM PRODUCTION GRIP GLUCOSE - POINT OF CARE Routine 12/08/2022 11:22 AM PRODUCTION GRIP GLUCOSE - POINT OF CARE Routine 12/08/2022 7:43 AM PRODUCTION GRIP GLUCOSE - POINT OF CARE Routine 12/08/2022 4:20 AM PRODUCTION GRIP DIFFERENTIAL MANUAL Routine 12/08/2022 3 :31 AM PRODUCTION GRIP CBC W AUTO DIFFERENTIAL Routine 12/08/2022 3:31 AM PRODUCTION GRIP BASIC METABOLIC PANEL (CALCIUM TOTAL) Routine 12/08/2022 3:31 AM PRODUCTION GRIP GLUCOSE - POINT OF CARE Routine 12/07/2022 11:50 PM PRODUCTION GRIP GLUCOSE - POINT OF CARE Routine 12/07/2022 9:25 PM PRODUCTION GRIP GLUCOSE - POINT OF CARE Routine 12/07/2022 4:53 PM PRODUCTION GRIP GLUCOSE - POINT OF CARE Routine 12/07/2022 11:51 AM PRODUCTION GRIP GLUCOSE - POINT OF CARE Routine 12/07/2022 11:29 AM PRODUCTION GRIP GLUCOSE - POINT OF CARE Routine 12/07/2022 8:00 AM PRODUCTION GRIP BASIC METABOLIC PANEL (CALCIUM TOTAL) Routine 12/07/2022 5:34 AM PRODUCTION GRIP VANCOMYCIN LEVEL RANDOM Timed 12/07/2022 5:34 AM PRODUCTION GRIP DIFFERENTIAL MANUAL Routine 12/07/2022 5 :33 AM PRODUCTION GRIP CBC W AUTO DIFFERENTIAL Routine 12/07/2022 5:33 AM PRODUCTION GRIP GLUCOSE - POINT OF CARE Routine 12/07/2022 5:15 AM PRODUCTION GRIP GLUCOSE - POINT OF CARE Routine 12/07/2022 4:50 AM PRODUCTION GRIP GLUCOSE - POINT OF CARE Routine 12/07/2022 4:19 AM PRODUCTION GRIP PREPARE RBC LEUKOREDUCED UNIT Routine 12/07/2022 1:17 AM PRODUCTION GRIP GLUCOSE - POINT OF CARE Routine 12/07/2022 12:04 AM PRODUCTION GRIP GLUCOSE - POINT OF CARE Routine 12/06/2022 8:10 PM PRODUCTION GRIP BACTERIAL VAGINOSIS RAPID TEST Routine 12/06/2022 6:20 PM PRODUCTION GRIP GLUCOSE - POINT OF CARE Routine 12/06/2022 5:11 PM PRODUCTION GRIP GLUCOSE - POINT OF CARE Routine 12/06/2022 11:50 AM PRODUCTION GRIP GLUCOSE - POINT OF CARE Routine 12/06/2022 7:32 AM PRODUCTION GRIP GLUCOSE - POINT OF CARE Routine 12/06/2022 4:05 AM PRODUCTION GRIP DIFFERENTIAL MANUAL Routine 12/06/2022 4 :01 AM PRODUCTION GRIP CBC W AUTO DIFFERENTIAL Routine 12/06/2022 4:01 AM PRODUCTION GRIP BASIC METABOLIC PANEL (CALCIUM TOTAL) Routine 12/06/2022 4:01 AM PRODUCTION GRIP GLUCOSE - POINT OF CARE Routine 12/06/2022 12:17 AM PRODUCTION GRIP GLUCOSE - POINT OF CARE Routine 12/05/2022 8:20 PM PRODUCTION GRIP CHLAMYDIA + GC AMPLIFIED PROBE Routine 12/05/2022 6:19 PM PRODUCTION GRIP CULTURE BLOOD Timed 12/05/2022 5:04 PM PRODUCTION GRIP CBC W/O DIFFERENTIAL STAT 12/05/2022 5:03 PM PRODUCTION GRIP GLUCOSE - POINT OF CARE Routine 12/05/2022 5:02 PM PRODUCTION GRIP PATHOLOGY TISSUE Routine 12/05/2022 3:17 PM PRODUCTION GRIP Gangrene (HCC) AMPUTATION ABOVE-KNEE 12/05/2022 3:05 PM PRODUCTION GRIP Gangrene (HCC) Special Needs KW 2 HCG URINE QUALITATIVE - POCT (IP) INTERFACED Routine 12/05/2022 1:46 PM PRODUCTION GRIP HCG URINE QUAL POCT NOTIFICATION STAT 12/05/2022 1:39 PM PRODUCTION GRIP Preop examination GLUCOSE - POINT OF CARE Routine 12/05/2022 12:22 PM PRODUCTION GRIP DIFFERENTIAL MANUAL Routine 12/05/2022 1 0:06 AM PRODUCTION GRIP CBC W AUTO DIFFERENTIAL Routine 12/05/2022 10:06 AM PRODUCTION GRIP BASIC METABOLIC PANEL (CALCIUM TOTAL) Routine 12/05/2022 10:06 AM PRODUCTION GRIP VANCOMYCIN LEVEL RANDOM Routine 12/05/2022 10:06 AM PRODUCTION GRIP GLUCOSE - POINT OF CARE Routine 12/05/2022 8:08 AM PRODUCTION GRIP GLUCOSE - POINT OF CARE Routine 12/05/2022 2:17 AM PRODUCTION GRIP GLUCOSE - POINT OF CARE Routine 12/04/2022 11:15 PM PRODUCTION GRIP GLUCOSE - POINT OF CARE Routine 12/04/2022 8:47 PM PRODUCTION GRIP GLUCOSE - POINT OF CARE Routine 12/04/2022 5:10 PM PRODUCTION GRIP BASIC METABOLIC PANEL (CALCIUM TOTAL) Routine 12/04/2022 4:05 PM PRODUCTION GRIP MAGNESIUM BLOOD Routine 12/04/2022 4:05 PM PRODUCTION GRIP GLUCOSE - POINT OF CARE Routine 12/04/2022 11:40 AM PRODUCTION GRIP GLUCOSE - POINT OF CARE Routine 12/04/2022 8:09 AM PRODUCTION GRIP OT EVAL AND TREAT Routine 12/04/2022 6:3 2 AM PRODUCTION GRIP PT EVAL AND TREAT Routine 12/04/2022 6:3 2 AM PRODUCTION GRIP CBC W AUTO DIFFERENTIAL Routine 12/04/2022 3:58 AM PRODUCTION GRIP BASIC METABOLIC PANEL (CALCIUM TOTAL) Routine 12/04/2022 3:58 AM PRODUCTION GRIP PHOSPHORUS BLOOD Routine 12/04/2022 3:58 AM PRODUCTION GRIP MAGNESIUM BLOOD Routine 12/04/2022 3:58 AM PRODUCTION GRIP VANCOMYCIN LEVEL RANDOM Timed 12/04/2022 3:58 AM PRODUCTION GRIP GLUCOSE - POINT OF CARE Routine 12/03/2022 11:18 PM PRODUCTION GRIP BASIC METABOLIC PANEL (CALCIUM TOTAL) Timed 12/03/2022 11:13 PM PRODUCTION GRIP DIFFERENTIAL MANUAL STAT 12/03/2022 6 :57 PM PRODUCTION GRIP CBC W AUTO DIFFERENTIAL STAT 12/03/2022 6:57 PM PRODUCTION GRIP LACTIC ACID BLOOD STAT 12/03/2022 6:5 7 PM PRODUCTION GRIP VANCOMYCIN LEVEL RANDOM Routine 12/03/2022 6:57 PM PRODUCTION GRIP BLOOD GASES SUZANNE + COOX PANEL STAT 12/03/2022 6:56 PM PRODUCTION GRIP GLUCOSE - POINT OF CARE Routine 12/03/2022 6:22 PM PRODUCTION GRIP BASIC METABOLIC PANEL (CALCIUM TOTAL) STAT 12/03/2022 5:07 PM PRODUCTION GRIP URINALYSIS REFLEX TO MICROSCOPIC NO CULTURE STAT 12/03/2022 4:59 PM PRODUCTION GRIP UREA NITROGEN URINE RANDOM Routine 12/03/2022 4:59 PM PRODUCTION GRIP LYTES (NA K CL) URINE RANDOM PANEL STAT 12/03/2022 4:59 PM PRODUCTION GRIP CREATININE URINE RANDOM STAT 12/03/2022 4:59 PM PRODUCTION GRIP GLUCOSE - POINT OF CARE Routine 12/03/2022 1:29 PM PRODUCTION GRIP HEMOGLOBIN Routine 12/03/2022 9:43 AM PRODUCTION GRIP GLUCOSE - POINT OF CARE Routine 12/03/2022 7:40 AM PRODUCTION GRIP PREPARE RBC LEUKOREDUCED UNIT Routine 12/03/2022 5:34 AM PRODUCTION GRIP BLOOD TYPE VERIFICATION Routine 12/03/2022 4:10 AM PRODUCTION GRIP EKG 12-LEAD STAT 12/03/2022 3:00 AM PRODUCTION GRIP Hypoxia TYPE + SCREEN PANEL STAT 12/03/2022 2 :42 AM PRODUCTION GRIP DIFFERENTIAL MANUAL Routine 12/03/2022 2 :42 AM PRODUCTION GRIP CBC W AUTO DIFFERENTIAL Routine 12/03/2022 2:42 AM PRODUCTION GRIP BASIC METABOLIC PANEL (CALCIUM TOTAL) Routine 12/03/2022 2:42 AM PRODUCTION GRIP PHOSPHORUS BLOOD Routine 12/03/2022 2:42 AM PRODUCTION GRIP MAGNESIUM BLOOD Routine 12/03/2022 2:42 AM PRODUCTION GRIP GLUCOSE - POINT OF CARE Routine 12/03/2022 1:07 AM PRODUCTION GRIP GLUCOSE - POINT OF CARE Routine 12/03/2022 12:30 AM PRODUCTION GRIP CULTURE FLUID+GRAM STAIN Routine 12/03/2022 12:27 AM PRODUCTION GRIP CULTURE ANAEROBE Routine 12/03/2022 12:2 7 AM PRODUCTION GRIP PATHOLOGY TISSUE Routine 12/03/2022 12:1 6 AM PRODUCTION GRIP Gangrene (HCC) AMPUTATION BELOW-KNEE 12/02/2022 11:39 PM PRODUCTION GRIP Gangrene (HCC) GLUCOSE - POINT OF CARE Routine 12/02/2022 11:10 PM PRODUCTION GRIP C-REACTIVE PROTEIN MONICA 12/02/2022 8: 41 PM PRODUCTION GRIP LIPID PROFILE STAT 12/02/2022 8:33 PM PRODUCTION GRIP HEMOGLOBIN A1C MONICA 12/02/2022 8:32 PM PRODUCTION GRIP CULTURE BLOOD Timed 12/02/2022 8:32 PM PRODUCTION GRIP LACTIC ACID BLOOD REFLEX TO REPEAT STAT 12/02/2022 8:00 PM PRODUCTION GRIP CULTURE BLOOD Timed 12/02/2022 8:00 PM PRODUCTION GRIP XR FOOT LEFT 3VW OR MORE STAT 12/02/2022 7:56 PM PRODUCTION GRIP Swelling of left foot TROPONIN I STAT 12/02/2022 7:55 PM PRODUCTION GRIP ERYTHROCYTE SEDIMENTATION RATE Add on 12/02/2022 7:55 PM PRODUCTION GRIP DIFFERENTIAL MANUAL STAT 12/02/2022 7 :55 PM PRODUCTION GRIP CBC W AUTO DIFFERENTIAL STAT 12/02/2022 7:55 PM PRODUCTION GRIP B-TYPE NATRIURETIC PEPTIDE STAT 12/02/2022 7:55 PM PRODUCTION GRIP COMPREHENSIVE METABOLIC PANEL STAT 12/02/2022 7:55 PM PRODUCTION GRIP HCG BETA BLOOD QUANTITATIVE STAT 12/02/2022 7:55 PM PRODUCTION GRIP XR CHEST 2VW STAT 12/02/2022 7:31 PM PRODUCTION GRIP Hypoxia documented in this encounter Results * GLUCOSE - POINT OF CARE (12/12/2022 10:29 AM PRODUCTION GRIP) Glucose WB/POC 104 70 - 115 mg/dL 12/12/2022 10:32 AM PRODUCTION GRIP [facility] Specimen Type Cap Fingerstick 2022 10:32 AM PRODUCTION GRIP [facility] Blood BLOOD SPECIMEN / Unknown 12/12/2022 10:29 AM PRODUCTION GRIP 12/12/2022 10:31 AM PRODUCTION GRIP Amanda Georges MD LAB - POINT OF CARE ORDERABLES Performing Organization Address City/[facility]/ZIP Co de Phone Number [address] [address], [facility] [phone] * GLUCOSE - POINT OF CARE (12/12/2022 8:51 AM PRODUCTION GRIP) Glucose WB/POC 91 70 - 115 mg/dL 12/12/2022 8:56 AM PRODUCTION GRIP [facility] Specimen Type Cap Fingerstick 2022 8:56 AM PRODUCTION GRIP [facility] Blood BLOOD SPECIMEN / Unknown 12/12/2022 8:51 AM PRODUCTION GRIP 12/12/2022 8:56 AM PRODUCTION GRIP Amanda Georges MD LAB - POINT OF CARE ORDERABLES [address] [address], [facility] [phone] * (ABNORMAL) CBC W AUTO DIFFERENTIAL (12/12/2022 1:44 AM PRODUCTION GRIP) WBC 12.9(H) 3.5 - 10.5 10? 3 /uL 12/12/2022 2:[address] [facility] RBC 3.29(L) 3.80 - 5.20 10? 6 /uL 12/12/2022 2:[address] [facility] Hemoglobin 7.5(L) 12.0 - 15.6 g/dL 12/12/2022 2:[address] [facility] Hematocrit 25.4(L) 35.0 - 45.0 % 12/12/2022 2:[address] [facility] MCV 77.2(L) 80.7 - 98.3 fL 12/12/2022 2:[address] [facility] MCH 22.8(L) 26.7 - 34.0 pg 12/12/2022 2:[address] [facility] MCHC 29.5(L) 30.8 - 35.9 g/dL 12/12/2022 2:[address] [facility] RDW-SD 54.5(H) 36.0 - 50.0 fL 12/12/2022 2:[address] [facility] RDW-CV 22.0(H) 11.2 - 14.8 % 12/12/2022 2:[address] [facility] Platelet Count 541(H) 150 - 400 10? 3 /uL 12/12/2022 2:[address] [facility] MPV 8.7(L) 9.4 - 12.9 fL 12/12/2022 2:[address] [facility] nRBC Absolute 0.07(H) 0 10? 3 /uL 12/12/2022 2:[address] [facility] nRBC Auto 0.5(H) 0 /100 WBC 12/12/2022 2:[address] [facility] Neutrophils % 65.4 35.0 - 70.0 % 12/12/2022 2:[address] [facility] Lymphocytes % 24.6 20.0 - 43.0 % 12/12/2022 2:[address] [facility] Monocytes % 5.8 5.0 - 13.0 % 12/12/2022 2:[address] [facility] Eosinophils % 1.9 0.0 - 6.0 % 12/12/2022 2:[address] [facility] Basophil % 0.3 0.0 - 2.0 % 12/12/2022 2:[address] [facility] Neutrophils Absolute 8.40(H) 1.60 - 7.00 10? 3 /uL 12/12/2022 2:[address] [facility] Lymphocyte Absolute 3.16 1.10 - 3.90 10? 3 /uL 12/12/2022 2:[address] [facility] Monocytes Absolute 0.75 0.26 - 1.07 10? 3 /uL 12/12/2022 2:[address] [facility] Eosinophils Absolute 0.25 0.00 - 0.47 10? 3 /uL 12/12/2022 2:[address] [facility] Basophils Absolute 0.04 0.00 - 0.08 10? 3 /uL 12/12/2022 2:[address] [facility] Immature Granulocytes % 2.0(H) 0.0 - 1.0 % 12/12/2022 2:[address] [facility] Immature Granulocytes Absolute 0.26 12/12/2022 2:[address] [facility] Blood BLOOD SPECIMEN / Unknown Lab Venipuncture / Unknown 12/12/2022 1:44 AM [facility] 12/12/2022 2:10 AM [facility] Levi Cooper MD LAB - HEMATOLO GY ORDERABLES [facility] [address] [place] [address], [facility] [phone] * (ABNORMAL) BASIC METABOLIC PANEL (CALCIUM TOTAL) (12/12/2022 1:44 AM [facility] BUN 19 7 - 26 mg/dL 12/12/2022 2:[address] [facility] Creatinine 1.12(H) 0.56 - 0.96 mg/dL 12/12/2022 2:[address] [facility] Sodium 145 136 - 145 mmol/L 12/12/2022 2:[address] [facility] Potassium 3.9 3.5 - 4.5 mmol/L 12/12/2022 2:[address] [facility] Chloride 109(H) 98 - 107 mmol/L 12/12/2022 2:[address] [facility] CO2 27 22 - 29 mmol/L 12/12/2022 2:[address] [facility] Glucose 110 70 - 115 mg/dL 12/12/2022 2:[address] [facility] Calcium 7.4(L) 8.4 - 10.2 mg/dL 12/12/2022 2:[address] [facility] Anion Gap 13 8 - 18 12/12/2022 2:[address] [facility] BUN/Creatinine Ratio 17 7 - 23 12/12/2022 2:[address] [facility] Osmolality Calculated 303(H) 270 - 300 mOsm/kg 12/12/2022 2:[address] [facility] eGFR by CKD-EPI 68(L) >=90 mL/min/1.7 3 m2 12/12/2022 2:[address] [facility] Blood BLOOD SPECIMEN / Unknown Lab Venipuncture / Unknown 12/12/2022 1:44 AM PRODUCTION GRIP 12/12/2022 2:10 AM PRODUCTION GRIP Levi Cooper MD LAB - CHEMISTR Y ORDERABLES [address] [address], [place] [phone] * (ABNORMAL) GLUCOSE - POINT OF CARE (12/11/2022 11:13 PM PRODUCTION GRIP) Glucose WB/POC 149(H) 70 - 115 mg/dL 12/11/2022 11:[address] [facility] Specimen Type Cap Fingerstick 2022 11:[address] [facility] Blood BLOOD SPECIMEN / Unknown 12/11/2022 11:13 PM PRODUCTION GRIP 12/11/2022 11:18 PM PRODUCTION GRIP Amanda Georges MD LAB - POINT OF CARE ORDERABLES [address] [address], [place] [phone] * (ABNORMAL) GLUCOSE - POINT OF CARE (12/11/2022 8:44 PM PRODUCTION GRIP) Glucose WB/POC 137(H) 70 - 115 mg/dL 12/11/2022 8:49 PM PRODUCTION GRIP [facility] Specimen Type Cap Fingerstick 2022 8:49 PM PRODUCTION GRIP [facility] Blood BLOOD SPECIMEN / Unknown 12/11/2022 8:44 PM PRODUCTION GRIP 12/11/2022 8:49 PM PRODUCTION GRIP Amanda Georges MD LAB - POINT OF CARE ORDERABLES [facility] [address] [place] [address], [place] [phone] * (ABNORMAL) GLUCOSE - POINT OF CARE (12/11/2022 4:17 PM PRODUCTION GRIP) Glucose WB/POC 121(H) 70 - 115 mg/dL 12/11/2022 4:22 PM PRODUCTION GRIP [facility] Specimen Type Cap Fingerstick 2022 4:22 PM PRODUCTION GRIP [facility] Blood BLOOD SPECIMEN / Unknown 12/11/2022 4:17 PM PRODUCTION GRIP 12/11/2022 4:21 PM PRODUCTION GRIP Amanda Georges MD LAB - POINT OF CARE ORDERABLES Performing Organization Address City/[facility]/ZIP Co de Phone Number [facility] [address] [place] [phone], [place] [phone] * GLUCOSE - POINT OF CARE (12/11/2022 2:34 PM PRODUCTION GRIP) Glucose WB/POC 109 70 - 115 mg/dL 12/11/2022 2:39 PM PRODUCTION GRIP [facility] Specimen Type Cap Fingerstick 2022 2:39 PM PRODUCTION GRIP [facility] Blood BLOOD SPECIMEN / Unknown 12/11/2022 2:34 PM PRODUCTION GRIP 12/11/2022 2:39 PM PRODUCTION GRIP Amanda Georges MD LAB - POINT OF CARE ORDERABLES [address] [address], [place] [phone] * GLUCOSE - POINT OF CARE (12/11/2022 12:32 PM PRODUCTION GRIP) Glucose WB/POC 97 70 - 115 mg/dL 12/11/2022 12:37 PM PRODUCTION GRIP [facility] Specimen Type Cap Fingerstick 2022 12:37 PM PRODUCTION GRIP [facility] Blood BLOOD SPECIMEN / Unknown 12/11/2022 12:32 PM PRODUCTION GRIP 12/11/2022 12:37 PM PRODUCTION GRIP Amanda Georges MD LAB - POINT OF CARE ORDERABLES Performing Organization Address [facility]/ZIP Co de Phone Number [address] [address], [place] [phone] * GLUCOSE - POINT OF CARE (12/11/2022 7:47 AM PRODUCTION GRIP) Glucose WB/POC 88 70 - 115 mg/dL 12/11/2022 7:59 AM PRODUCTION GRIP [facility] Specimen Type Cap Fingerstick 2022 7:59 AM PRODUCTION GRIP [facility] Blood BLOOD SPECIMEN / Unknown 12/11/2022 7:47 AM PRODUCTION GRIP 12/11/2022 7:59 AM PRODUCTION GRIP Amanda Georges MD LAB - POINT OF CARE ORDERABLES Performing Organization Address City/[facility]/ZIP Co de Phone Number [address] [address], [place] [phone] * GLUCOSE - POINT OF CARE (12/11/2022 4:05 AM PRODUCTION GRIP) Glucose WB/POC 104 70 - 115 mg/dL 12/11/2022 4:10 AM PRODUCTION GRIP [facility] Specimen Type Cap Fingerstick 2022 4:10 AM PRODUCTION GRIP [facility] Blood BLOOD SPECIMEN / Unknown 12/11/2022 4:05 AM PRODUCTION GRIP 12/11/2022 4:10 AM PRODUCTION GRIP Amanda Georges MD LAB - POINT OF CARE ORDERABLES [facility] [address] [place] [phone], [facility] [phone] * (ABNORMAL) RBC MORPHOLOGY (12/11/2022 12:20 AM PRODUCTION GRIP) Platelet Estimate Increased (A) Adequate 12/11/2022 3:[address] [facility] Anisocytosis 1+(A) None 12/11/2022 3:[address] [facility] Microcytes Occasiona l(A) None 12/11/2022 3:[address] [facility] Macrocytosis Occasiona l(A) None 12/11/2022 3:[address] [facility] Hypochromia Rare(A) None 12/11/2022 3:[address] [facility] Polychromasia Few(A) None 12/11/2022 3:[address] [facility] Schistocytes Occasiona l(A) None 12/11/2022 3:[address] [facility] Blood BLOOD SPECIMEN / Unknown Lab Venipuncture / Unknown 12/11/2022 12:20 AM PRODUCTION GRIP 12/11/2022 3:03 AM PRODUCTION GRIP Levi Cooper MD LAB - HEMATOLO GY ORDERABLES [address] [address], [facility] [phone] * (ABNORMAL) CBC W AUTO DIFFERENTIAL (12/11/2022 12:20 AM PRODUCTION GRIP) WBC 12.5(H) 3.5 - 10.5 10? 3 /uL 12/11/2022 3:[address] [facility] RBC 3.74(L) 3.80 - 5.20 10? 6 /uL 12/11/2022 3:[address] [facility] Hemoglobin 8.4(L) 12.0 - 15.6 g/dL 12/11/2022 3:[address] [facility] Hematocrit 30.2(L) 35.0 - 45.0 % 12/11/2022 3:[address] [facility] MCV 80.7 80.7 - 98.3 fL 12/11/2022 3:[address] [facility] MCH 22.5(L) 26.7 - 34.0 pg 12/11/2022 3:[address] [facility] MCHC 27.8(L) 30.8 - 35.9 g/dL 12/11/2022 3:[address] [facility] RDW-SD 58.4(H) 36.0 - 50.0 fL 12/11/2022 3:[address] [facility] RDW-CV 22.1(H) 11.2 - 14.8 % 12/11/2022 3:[address] [facility] Platelet Count 532(H) 150 - 400 10? 3 /uL 12/11/2022 3:[address] [facility] MPV 9.5 9.4 - 12.9 fL 12/11/2022 3:[address] [facility] nRBC Absolute 0.06(H) 0 10? 3 /uL 12/11/2022 3:[address] [facility] nRBC Auto 0.5(H) 0 /100 WBC 12/11/2022 3:[address] [facility] Neutrophils % 65.5 35.0 - 70.0 % 12/11/2022 3:[address] [facility] Lymphocytes % 22.2 20.0 - 43.0 % 12/11/2022 3:[address] [facility] Monocytes % 5.5 5.0 - 13.0 % 12/11/2022 3:[address] [facility] Eosinophils % 2.2 0.0 - 6.0 % 12/11/2022 3:[address] [facility] Basophil % 0.4 0.0 - 2.0 % 12/11/2022 3:[address] [facility] Neutrophils Absolute 8.15(H) 1.60 - 7.00 10? 3 /uL 12/11/2022 3:[address] [facility] Lymphocyte Absolute 2.77 1.10 - 3.90 10? 3 /uL 12/11/2022 3:[address] [facility] Monocytes Absolute 0.69 0.26 - 1.07 10? 3 /uL 12/11/2022 3:[address] [facility] Eosinophils Absolute 0.27 0.00 - 0.47 10? 3 /uL 12/11/2022 3:[address] [facility] Basophils Absolute 0.05 0.00 - 0.08 10? 3 /uL 12/11/2022 3:[address] [facility] Immature Granulocytes % 4.2(H) 0.0 - 1.0 % 12/11/2022 3:[address] [facility] Immature Granulocytes Absolute 0.52 12/11/2022 3:[address] [facility] Blood BLOOD SPECIMEN / Unknown Lab Venipuncture / Unknown 12/11/2022 12:20 AM [facility] 12/11/2022 3:03 AM [facility] Levi Cooper MD LAB - HEMATOLO GY ORDERABLES Performing Organization Address [facility] Co de Phone Number [address] [address] [phone] * (ABNORMAL) BASIC METABOLIC PANEL (CALCIUM TOTAL) (12/11/2022 12:20 AM [facility] BUN 19 7 - 26 mg/dL 12/11/2022 3:[address] [facility] Creatinine 1.38(H) 0.56 - 0.96 mg/dL 12/11/2022 3:[address] [facility] Sodium 144 136 - 145 mmol/L 12/11/2022 3:[address] [facility] Potassium 3.6 3.5 - 4.5 mmol/L 12/11/2022 3:[address] [facility] Chloride 109(H) 98 - 107 mmol/L 12/11/2022 3:[address] [facility] CO2 25 22 - 29 mmol/L 12/11/2022 3:[address] [facility] Glucose 114 70 - 115 mg/dL 12/11/2022 3:[address] [facility] Calcium 8.0(L) 8.4 - 10.2 mg/dL 12/11/2022 3:[address] [facility] Anion Gap 14 8 - 18 12/11/2022 3:[address] [facility] BUN/Creatinine Ratio 14 7 - 23 12/11/2022 3:[address] [facility] Osmolality Calculated 301(H) 270 - 300 mOsm/kg 12/11/2022 3:[address] [facility] eGFR by CKD-EPI 53(L) >=90 mL/min/1.7 3 m2 12/11/2022 3:[address] [facility] Blood BLOOD SPECIMEN / Unknown Lab Venipuncture / Unknown 12/11/2022 12:20 AM [facility] 12/11/2022 3:03 AM [facility] Levi Cooper MD LAB - CHEMISTR Y ORDERABLES [address] [address], [place] [phone] * GLUCOSE - POINT OF CARE (12/10/2022 11:39 PM [facility]) Glucose WB/POC 110 70 - 115 mg/dL 12/10/2022 11:[address] [facility] Specimen Type Cap Fingerstick 2022 11:[address] [facility] Blood BLOOD SPECIMEN / Unknown 12/10/2022 11:39 PM [facility] 12/10/2022 11:44 PM [facility] Amanda Georges MD LAB - POINT OF CARE ORDERABLES [address] [address], [place] [phone] * GLUCOSE - POINT OF CARE (12/10/2022 7:54 PM [facility]) Glucose WB/POC 108 70 - 115 mg/dL 12/10/2022 7:[address] [facility] Specimen Type Cap Fingerstick 2022 7:[address] [facility] Blood BLOOD SPECIMEN / Unknown 12/10/2022 7:54 PM [facility] 12/10/2022 7:59 PM [facility] Amanda Georges MD LAB - POINT OF CARE ORDERABLES [address] [address], [place] [phone] * GLUCOSE - POINT OF CARE (12/10/2022 4:15 PM [facility]) Glucose WB/POC 108 70 - 115 mg/dL 12/10/2022 4:20 PM [facility] Specimen Type Cap Fingerstick 2022 4:20 PM [facility] Blood BLOOD SPECIMEN / Unknown 12/10/2022 4:15 PM [facility] 12/10/2022 4:20 PM [facility] Amanda Georges MD LAB - POINT OF CARE ORDERABLES Performing Organization Address [facility]/ZIP Co de Phone Number [address] [address], [place] [phone] * CARDIAC EKG ORDER (12/10/2022 12:04 PM [facility]) Narrative 12/10/2022 12:04 PM [facility] Ordered by an unspecified provider. Scanned Document CARDIAC SERVICES ORD ERABLES * GLUCOSE - POINT OF CARE (12/10/2022 11:36 AM [facility]) Glucose WB/POC 111 70 - 115 mg/dL 12/10/2022 11:41 AM [facility] Specimen Type Cap Fingerstick 2022 11:41 AM [facility] Blood BLOOD SPECIMEN / Unknown 12/10/2022 11:36 AM [facility] 12/10/2022 11:41 AM [facility] Amanda Georges MD LAB - POINT OF CARE ORDERABLES [address] [address], [place] [phone] * GLUCOSE - POINT OF CARE (12/10/2022 8:59 AM [facility]) Glucose WB/POC 100 70 - 115 mg/dL 12/10/2022 9:03 AM [facility] Specimen Type Cap Fingerstick 2022 9:03 AM [facility] Blood BLOOD SPECIMEN / Unknown 12/10/2022 8:59 AM [facility] 12/10/2022 9:03 AM [facility] Amanda Georges MD LAB - POINT OF CARE ORDERABLES [facility] [address] [place] [address], [place] [phone] * (ABNORMAL) GLUCOSE - POINT OF CARE (12/10/2022 5:24 AM [facility]) Glucose WB/POC 126(H) 70 - 115 mg/dL 12/10/2022 5:29 AM [facility] Specimen Type Cap Fingerstick 2022 5:29 AM [facility] Blood BLOOD SPECIMEN / Unknown 12/10/2022 5:24 AM PRODUCTION GRIP 12/10/2022 5:29 AM PRODUCTION GRIP Branden Galindo MD LAB - POINT OF CARE ORDERABLES [address] [address], [place] [phone] * (ABNORMAL) GLUCOSE - POINT OF CARE (12/10/2022 12:40 AM PRODUCTION GRIP) Glucose WB/POC 231(H) 70 - 115 mg/dL 12/10/2022 12:45 AM PRODUCTION GRIP [facility] Specimen Type Cap Fingerstick 2022 12:45 AM PRODUCTION GRIP [facility] Blood BLOOD SPECIMEN / Unknown 12/10/2022 12:40 AM PRODUCTION GRIP 12/10/2022 12:45 AM PRODUCTION GRIP Branden Galindo MD LAB - POINT OF CARE ORDERABLES [address] [place] [address], [facility] [phone] * (ABNORMAL) DIFFERENTIAL MANUAL (12/10/2022 12:36 AM PRODUCTION GRIP) WBC (corrected for NRBC) 15.1 10? 3 /uL 12/10/2022 3:[address] [facility] Total Cell Count 100 12/10/19 23 3:[address] [facility] Neutrophils Absolute Manual 11.93(H) 1.60 - 7.00 10? 3 /uL 12/10/2022 3:[address] [facility] Comment:(BANDS+SEGS) x WBC = NEUT # (ANC) Lymphocyte Absolute Manual 1.51 1.10 - 3.90 10? 3 /uL 12/10/2022 3:[address] [facility] Monocytes Absolute Manual 0.60 0.26 - 1.07 10? 3 /uL 12/10/2022 3:[address] [facility] Eosinophils Absolute Manual 0.60(H) 0.00 - 0.47 10? 3 /uL 12/10/2022 3:[address] [facility] Band % Manual 1 0 - 10 % 12/10/2022 3:[address] [facility] Neutrophil % Manual 78(H) 35 - 70 % 12/10/2022 3:[address] [facility] Lymphocyte % Manual 10(L) 20 - 43 % 12/10/2022 3:[address] [facility] Monocytes % Manual 4(L) 5 - 13 % 12/10/2022 3:[address] [facility] Eosinophils % Manual 4 0 - 6 % 12/10/2022 3:[address] [facility] Metamyelocyte % Manual 1(H) 0 % 12/10/2022 3:[address] [facility] Myelocytes % Manual 2(H) 0 % 12/10/2022 3:[address] [facility] Platelet Estimate Increased (A) Adequate 12/10/2022 3:[address] [facility] Anisocytosis 1+(A) None 12/10/2022 3:[address] [facility] Hypochromia Occasiona l(A) None 12/10/2022 3:[address] [facility] Polychromasia 1+(A) None 12/10/2022 3:[address] [facility] Schistocytes Occasiona l(A) None 12/10/2022 3:[address] [facility] Blood BLOOD SPECIMEN / Unknown Lab Venipuncture / Unknown 12/10/2022 12:36 AM PRODUCTION GRIP 12/10/2022 1:42 AM PRODUCTION GRIP Levi Cooper MD LAB - HEMATOLO GY ORDERABLES [facility] [address] [place] [address], [facility] [phone] * (ABNORMAL) CBC W AUTO DIFFERENTIAL (12/10/2022 12:36 AM [facility] WBC 15.1(H) 3.5 - 10.5 10? 3 /uL 12/10/2022 2:[address] [facility] RBC 3.49(L) 3.80 - 5.20 10? 6 /uL 12/10/2022 2:[address] [facility] Hemoglobin 8.0(L) 12.0 - 15.6 g/dL 12/10/2022 2:[address] [facility] Hematocrit 26.9(L) 35.0 - 45.0 % 12/10/2022 2:[address] [facility] MCV 77.1(L) 80.7 - 98.3 fL 12/10/2022 2:[address] [facility] MCH 22.9(L) 26.7 - 34.0 pg 12/10/2022 2:[address] [facility] MCHC 29.7(L) 30.8 - 35.9 g/dL 12/10/2022 2:[address] [facility] RDW-SD 54.2(H) 36.0 - 50.0 fL 12/10/2022 2:[address] [facility] RDW-CV 21.0(H) 11.2 - 14.8 % 12/10/2022 2:[address] [facility] Platelet Count 619(H) 150 - 400 10? 3 /uL 12/10/2022 2:[address] [facility] MPV 8.8(L) 9.4 - 12.9 fL 12/10/2022 2:[address] [facility] nRBC Absolute 0.06(H) 0 10? 3 /uL 12/10/2022 2:[address] [facility] nRBC Auto 0.4(H) 0 /100 WBC 12/10/2022 2:[address] [facility] Blood BLOOD SPECIMEN / Unknown Lab Venipuncture / Unknown 12/10/2022 12:36 AM PRODUCTION GRIP 12/10/2022 1:42 AM PRODUCTION GRIP Levi Cooper MD LAB - HEMATOLO GY ORDERABLES [facility] [address] [place] [phone], [facility] [phone] * (ABNORMAL) BASIC METABOLIC PANEL (CALCIUM TOTAL) (12/10/2022 12:36 AM PRODUCTION GRIP) BUN 20 7 - 26 mg/dL 12/10/2022 2:[address] [facility] Creatinine 1.46(H) 0.56 - 0.96 mg/dL 12/10/2022 2:[address] [facility] Sodium 147(H) 136 - 145 mmol/L 12/10/2022 2:[address] [facility] Potassium 3.6 3.5 - 4.5 mmol/L 12/10/2022 2:[address] [facility] Chloride 112(H) 98 - 107 mmol/L 12/10/2022 2:[address] [facility] CO2 26 22 - 29 mmol/L 12/10/2022 2:[address] [facility] Glucose 159(H) 70 - 115 mg/dL 12/10/2022 2:[address] [facility] Calcium 7.9(L) 8.4 - 10.2 mg/dL 12/10/2022 2:[address] [facility] Anion Gap 13 8 - 18 12/10/2022 2:[address] [facility] BUN/Creatinine Ratio 14 7 - 23 12/10/2022 2:[address] [facility] Osmolality Calculated 310(H) 270 - 300 mOsm/kg 12/10/2022 2:[address] [facility] eGFR by CKD-EPI 49(L) >=90 mL/min/1.7 3 m2 12/10/2022 2:[address] [facility] Blood BLOOD SPECIMEN / Unknown Lab Venipuncture / Unknown 12/10/2022 12:36 AM PRODUCTION GRIP 12/10/2022 1:42 AM PRODUCTION GRIP Levi Cooper MD LAB - CHEMISTR Y ORDERABLES [address] [address], [place] [phone] * GLUCOSE - POINT OF CARE (12/09/2022 8:51 PM PRODUCTION GRIP) Glucose WB/POC 103 70 - 115 mg/dL 12/09/2022 8:[address] [facility] Specimen Type Cap Fingerstick 2022 8:56 PM PRODUCTION GRIP [facility] Blood BLOOD SPECIMEN / Unknown 12/09/2022 8:51 PM PRODUCTION GRIP 12/09/2022 8:56 PM PRODUCTION GRIP Branden Galindo MD LAB - POINT OF CARE ORDERABLES [address] [address], [place] [phone] * GLUCOSE - POINT OF CARE (12/09/2022 4:07 PM PRODUCTION GRIP) Glucose WB/POC 79 70 - 115 mg/dL 12/09/2022 4:16 PM PRODUCTION GRIP [facility] Specimen Type Cap Fingerstick 2022 4:16 PM PRODUCTION GRIP [facility] Blood BLOOD SPECIMEN / Unknown 12/09/2022 4:07 PM PRODUCTION GRIP 12/09/2022 4:16 PM PRODUCTION GRIP Branden Galindo MD LAB - POINT OF CARE ORDERABLES [address] [place] [address], [place] [phone] * (ABNORMAL) GLUCOSE - POINT OF CARE (12/09/2022 12:58 PM PRODUCTION GRIP) Glucose WB/POC 202(H) 70 - 115 mg/dL 12/09/2022 7:35 PM PRODUCTION GRIP [facility] Specimen Type Cap Fingerstick 2022 7:35 PM PRODUCTION GRIP [facility] Blood BLOOD SPECIMEN / Unknown 12/09/2022 12:58 PM PRODUCTION GRIP 12/09/2022 7:35 PM PRODUCTION GRIP Branden Galindo MD LAB - POINT OF CARE ORDERABLES [place] [id number] [place] [address], [place] [phone] * (ABNORMAL) GLUCOSE - POINT OF CARE (12/09/2022 7:59 AM PRODUCTION GRIP) Glucose WB/POC 124(H) 70 - 115 mg/dL 12/09/2022 8:07 AM PRODUCTION GRIP [facility] Specimen Type Cap Fingerstick 2022 8:07 AM PRODUCTION GRIP [facility] Blood BLOOD SPECIMEN / Unknown 12/09/2022 7:59 AM PRODUCTION GRIP 12/09/2022 8:07 AM PRODUCTION GRIP Branden Galindo MD LAB - POINT OF CARE ORDERABLES [address] [address], [place] [phone] * (ABNORMAL) GLUCOSE - POINT OF CARE (12/09/2022 4:47 AM PRODUCTION GRIP) Glucose WB/POC 118(H) 70 - 115 mg/dL 12/09/2022 4:56 AM PRODUCTION GRIP [facility] Specimen Type Cap Fingerstick 2022 4:56 AM PRODUCTION GRIP [facility] Blood BLOOD SPECIMEN / Unknown 12/09/2022 4:47 AM PRODUCTION GRIP 12/09/2022 4:56 AM PRODUCTION GRIP Branden Galindo MD LAB - POINT OF CARE ORDERABLES [facility] [address] [place] [phone], [facility] [phone] * (ABNORMAL) DIFFERENTIAL MANUAL (12/09/2022 1:29 AM PRODUCTION GRIP) WBC (corrected for NRBC) 19.1 10? 3 /uL 12/09/2022 3:[address] [facility] Total Cell Count 100 12/09/19 23 3:[address] [facility] Neutrophils Absolute Manual 14.52(H) 1.60 - 7.00 10? 3 /uL 12/09/2022 3:[address] [facility] Comment:(BANDS+SEGS) x WBC = NEUT # (ANC) Lymphocyte Absolute Manual 1.91 1.10 - 3.90 10? 3 /uL 12/09/2022 3:[address] [facility] Monocytes Absolute Manual 1.15(H) 0.26 - 1.07 10? 3 /uL 12/09/2022 3:[address] [facility] Eosinophils Absolute Manual 0.57(H) 0.00 - 0.47 10? 3 /uL 12/09/2022 3:[address] [facility] Band % Manual 2 0 - 10 % 12/09/2022 3:[address] [facility] Neutrophil % Manual 74(H) 35 - 70 % 12/09/2022 3:[address] [facility] Lymphocyte % Manual 10(L) 20 - 43 % 12/09/2022 3:[address] [facility] Monocytes % Manual 6 5 - 13 % 12/09/2022 3:[address] [facility] Eosinophils % Manual 3 0 - 6 % 12/09/2022 3:[address] [facility] Metamyelocyte % Manual 4(H) 0 % 12/09/2022 3:[address] [facility] Myelocytes % Manual 1(H) 0 % 12/09/2022 3:[address] [facility] Platelet Estimate Increased(A ) Adequate 12/09/2022 3:[address] [facility] Anisocytosis 1+(A) None 12/09/2022 3:[address] [facility] Microcytes 2+(A) None 12/09/2022 3:[address] [facility] Macrocytosis Occasional( A) None 12/09/2022 3:[address] [facility] Hypochromia Occasional( A) None 12/09/2022 3:[address] [facility] Polychromasia 1+(A) None 12/09/2022 3:[address] [facility] Target Cells 1+(A) None 12/09/2022 3:[address] [facility] Comment Platelet Platelet clumpled on the smear but appear increased. 12/09/2022 3:[address] [facility] Blood BLOOD SPECIMEN / Unknown Lab Venipuncture / Unknown 12/09/2022 1:29 AM PRODUCTION GRIP 12/09/2022 2:07 AM [facility] Levi Cooper MD LAB - HEMATOLO GY ORDERABLES [facility] [address] [place] [address], [facility] [phone] * (ABNORMAL) CBC W AUTO DIFFERENTIAL (12/09/2022 1:29 AM [facility] WBC 19.1(H) 3.5 - 10.5 10? 3 /uL 12/09/2022 2:[address] [facility] RBC 3.33(L) 3.80 - 5.20 10? 6 /uL 12/09/2022 2:[address] [facility] Hemoglobin 7.5(L) 12.0 - 15.6 g/dL 12/09/2022 2:[address] [facility] Hematocrit 25.4(L) 35.0 - 45.0 % 12/09/2022 2:[address] [facility] MCV 76.3(L) 80.7 - 98.3 fL 12/09/2022 2:[address] [facility] MCH 22.5(L) 26.7 - 34.0 pg 12/09/2022 2:[address] [facility] MCHC 29.5(L) 30.8 - 35.9 g/dL 12/09/2022 2:[address] [facility] RDW-SD 53.4(H) 36.0 - 50.0 fL 12/09/2022 2:[address] [facility] RDW-CV 20.4(H) 11.2 - 14.8 % 12/09/2022 2:[address] [facility] Platelet Count 622(H) 150 - 400 10? 3 /uL 12/09/2022 2:[address] [facility] MPV 8.8(L) 9.4 - 12.9 fL 12/09/2022 2:[address] [facility] nRBC Absolute 0.12(H) 0 10? 3 /uL 12/09/2022 2:[address] [facility] nRBC Auto 0.6(H) 0 /100 WBC 12/09/2022 2:[address] [facility] Blood BLOOD SPECIMEN / Unknown Lab Venipuncture / Unknown 12/09/2022 1:29 AM PRODUCTION GRIP 12/09/2022 2:07 AM [facility] Levi Cooper MD LAB - HEMATOLO GY ORDERABLES Performing Organization Address City/State/[facility] Co de Phone Number [address] [address], [facility] [phone] * (ABNORMAL) BASIC METABOLIC PANEL (CALCIUM TOTAL) (12/09/2022 1:29 AM PRODUCTION GRIP) BUN 24 7 - 26 mg/dL 12/09/2022 2:[address] [facility] Creatinine 1.63(H) 0.56 - 0.96 mg/dL 12/09/2022 2:[address] [facility] Sodium 146(H) 136 - 145 mmol/L 12/09/2022 2:[address] [facility] Potassium 3.4(L) 3.5 - 4.5 mmol/L 12/09/2022 2:[address] [facility] Chloride 113(H) 98 - 107 mmol/L 12/09/2022 2:[address] [facility] CO2 23 22 - 29 mmol/L 12/09/2022 2:[address] [facility] Glucose 109 70 - 115 mg/dL 12/09/2022 2:[address] [facility] Calcium 7.7(L) 8.4 - 10.2 mg/dL 12/09/2022 2:[address] [facility] Anion Gap 13 8 - 18 12/09/2022 2:[address] [facility] BUN/Creatinine Ratio 15 7 - 23 12/09/2022 2:[address] [facility] Osmolality Calculated 307(H) 270 - 300 mOsm/kg 12/09/2022 2:[address] [facility] eGFR by CKD-EPI 43(L) >=90 mL/min/1.7 3 m2 12/09/2022 2:[address] [facility] Blood BLOOD SPECIMEN / Unknown Lab Venipuncture / Unknown 12/09/2022 1:29 AM PRODUCTION GRIP 12/09/2022 2:04 AM PRODUCTION GRIP Levi Cooper MD LAB - CHEMISTR Y ORDERABLES [address] [address], [facility] [phone] * (ABNORMAL) GLUCOSE - POINT OF CARE (12/09/2022 12:47 AM PRODUCTION GRIP) Pathologist [facility] Glucose WB/POC 161(H) 70 - 115 mg/dL 12/09/2022 12:[address] [facility] Specimen Type Cap Fingerstick 2022 12:[address] [facility] Blood BLOOD SPECIMEN / Unknown 12/09/2022 12:47 AM PRODUCTION GRIP 12/09/2022 12:52 AM PRODUCTION GRIP Branden Galindo MD LAB - POINT OF CARE ORDERABLES [address] [address], [place] [phone] * (ABNORMAL) GLUCOSE - POINT OF CARE (12/08/2022 9:39 PM PRODUCTION GRIP) Glucose WB/POC 162(H) 70 - 115 mg/dL 12/08/2022 9:44 PM PRODUCTION GRIP [facility] Specimen Type Cap Fingerstick 2022 9:44 PM PRODUCTION GRIP [facility] Blood BLOOD SPECIMEN / Unknown 12/08/2022 9:39 PM PRODUCTION GRIP 12/08/2022 9:44 PM PRODUCTION GRIP Branden Galindo MD LAB - POINT OF CARE ORDERABLES [address] [address], [place] [phone] * (ABNORMAL) GLUCOSE - POINT OF CARE (12/08/2022 5:14 PM PRODUCTION GRIP) Pathologist [facility] Glucose WB/POC 155(H) 70 - 115 mg/dL 12/08/2022 5:19 PM PRODUCTION GRIP [facility] Specimen Type Arterial 12/08/2022 5:19 PM PRODUCTION GRIP [facility] Blood BLOOD SPECIMEN / Unknown 12/08/2022 5:14 PM PRODUCTION GRIP 12/08/2022 5:19 PM PRODUCTION GRIP Branden Galindo MD LAB - POINT OF CARE ORDERABLES Performing Organization Address [facility]/ZIP Co de Phone Number [address] [address], [place] [phone] * VANCOMYCIN LEVEL RANDOM (12/08/2022 12:56 PM PRODUCTION GRIP) Pathologist [facility] Vancomycin Random 16.8 Therapeutic Ranges not established for random specimens ug/mL 12/08/2022 1:24 PM PRODUCTION GRIP [facility] Blood BLOOD SPECIMEN / Unknown Lab Venipuncture / Unknown 12/08/2022 12:56 PM PRODUCTION GRIP 12/08/2022 1:01 PM PRODUCTION GRIP Narrative [facility] - 12/08/2022 1:24 PM PRODUCTION GRIP See institution protocol. Leigh [facility]IB[facility] LAB - CHEMISTRY DIVINA OLVERA [address] [address], [place] [phone] * (ABNORMAL) GLUCOSE - POINT OF CARE (12/08/2022 11:22 AM PRODUCTION GRIP) Glucose WB/POC 119(H) 70 - 115 mg/dL 12/08/2022 11:29 AM PRODUCTION GRIP [facility] Specimen Type Arterial 12/08/2022 11:29 AM PRODUCTION GRIP [facility] Blood BLOOD SPECIMEN / Unknown 12/08/2022 11:22 AM PRODUCTION GRIP 12/08/2022 11:29 AM PRODUCTION GRIP Branden Galindo MD LAB - POINT OF CARE ORDERABLES [address] [address], [facility] [phone] * (ABNORMAL) GLUCOSE - POINT OF CARE (12/08/2022 7:43 AM PRODUCTION GRIP) Glucose WB/POC 146(H) 70 - 115 mg/dL 12/08/2022 7:48 AM PRODUCTION GRIP [facility] Specimen Type Arterial 12/08/2022 7:48 AM PRODUCTION GRIP [facility] Blood BLOOD SPECIMEN / Unknown 12/08/2022 7:43 AM PRODUCTION GRIP 12/08/2022 7:48 AM PRODUCTION GRIP Branden Galindo MD LAB - POINT OF CARE ORDERABLES [address] [address], [place] [phone] * (ABNORMAL) GLUCOSE - POINT OF CARE (12/08/2022 4:20 AM PRODUCTION GRIP) Glucose WB/POC 153(H) 70 - 115 mg/dL 12/08/2022 4:21 AM PRODUCTION GRIP [facility] Specimen Type Cap Fingerstick 2022 4:21 AM PRODUCTION GRIP [facility] Blood BLOOD SPECIMEN / Unknown 12/08/2022 4:20 AM PRODUCTION GRIP 12/08/2022 4:21 AM PRODUCTION GRIP Branden Galindo MD LAB - POINT OF CARE ORDERABLES [facility] [address] [place] [address], [facility] [phone] * (ABNORMAL) DIFFERENTIAL MANUAL (12/08/2022 3:31 AM PRODUCTION GRIP) WBC (corrected for NRBC) 20.0 10? 3 /uL 12/08/2022 5:[address] [facility] Total Cell Count 100 12/08/19 23 5:[address] [facility] Neutrophils Absolute Manual 18.80(H) 1.60 - 7.00 10? 3 /uL 12/08/2022 5:[address] [facility] Comment:(BANDS+SEGS) x WBC = NEUT # (ANC) Lymphocyte Absolute Manual 0.80(L) 1.10 - 3.90 10? 3 /uL 12/08/2022 5:[address] [facility] Monocytes Absolute Manual 0.20(L) 0.26 - 1.07 10? 3 /uL 12/08/2022 5:[address] [facility] Eosinophils Absolute Manual 0.20 0.00 - 0.47 10? 3 /uL 12/08/2022 5:[address] [facility] Band % Manual 4 0 - 10 % 12/08/2022 5:[address] [facility] Neutrophil % Manual 90(H) 35 - 70 % 12/08/2022 5:[address] [facility] Lymphocyte % Manual 4(L) 20 - 43 % 12/08/2022 5:[address] [facility] Monocytes % Manual 1(L) 5 - 13 % 12/08/2022 5:[address] [facility] Eosinophils % Manual 1 0 - 6 % 12/08/2022 5:[address] [facility] Platelet Estimate Increased (A) Adequate 12/08/2022 5:[address] [facility] Anisocytosis 1+(A) None 12/08/2022 5:[address] [facility] Microcytes 1+(A) None 12/08/2022 5:[address] [facility] Target Cells Occasiona l(A) None 12/08/2022 5:[address] [facility] Blood BLOOD SPECIMEN / Unknown Lab Venipuncture / Unknown 12/08/2022 3:31 AM PRODUCTION GRIP 12/08/2022 3:57 AM PRODUCTION GRIP Levi Cooper MD LAB - HEMATOLO GY ORDERABLES [facility] [address] [place] [address], [facility] [phone] * (ABNORMAL) CBC W AUTO DIFFERENTIAL (12/08/2022 3:31 AM PRODUCTION GRIP) WBC 20.0(H) 3.5 - 10.5 10? 3 /uL 12/08/2022 4:[address] [facility] RBC 3.33(L) 3.80 - 5.20 10? 6 /uL 12/08/2022 4:[address] [facility] Hemoglobin 7.6(L) 12.0 - 15.6 g/dL 12/08/2022 4:[address] [facility] Hematocrit 25.6(L) 35.0 - 45.0 % 12/08/2022 4:[address] [facility] MCV 76.9(L) 80.7 - 98.3 fL 12/08/2022 4:[address] [facility] MCH 22.8(L) 26.7 - 34.0 pg 12/08/2022 4:[address] [facility] MCHC 29.7(L) 30.8 - 35.9 g/dL 12/08/2022 4:[address] [facility] RDW-SD 54.4(H) 36.0 - 50.0 fL 12/08/2022 4:[address] [facility] RDW-CV 19.9(H) 11.2 - 14.8 % 12/08/2022 4:[address] [facility] Platelet Count 562(H) 150 - 400 10? 3 /uL 12/08/2022 4:[address] [facility] MPV 9.0(L) 9.4 - 12.9 fL 12/08/2022 4:[address] [facility] nRBC Absolute 0.10(H) 0 10? 3 /uL 12/08/2022 4:[address] [facility] nRBC Auto 0.5(H) 0 /100 WBC 12/08/2022 4:[address] [facility] Blood BLOOD SPECIMEN / Unknown Lab Venipuncture / Unknown 12/08/2022 3:31 AM PRODUCTION GRIP 12/08/2022 3:57 AM PRODUCTION GRIP Levi Cooper MD LAB - HEMATOLO GY ORDERABLES [facility] [address] [place] [address], [facility] [phone] * (ABNORMAL) BASIC METABOLIC PANEL (CALCIUM TOTAL) (12/08/2022 3:31 AM [facility] BUN 27(H) 7 - 26 mg/dL 12/08/2022 4:[address] [facility] Creatinine 1.86(H) 0.56 - 0.96 mg/dL 12/08/2022 4:[address] [facility] Sodium 145 136 - 145 mmol/L 12/08/2022 4:[address] [facility] Potassium 3.7 3.5 - 4.5 mmol/L 12/08/2022 4:[address] [facility] Chloride 112(H) 98 - 107 mmol/L 12/08/2022 4:[address] [facility] CO2 22 22 - 29 mmol/L 12/08/2022 4:[address] [facility] Glucose 158(H) 70 - 115 mg/dL 12/08/2022 4:[address] [facility] Calcium 7.6(L) 8.4 - 10.2 mg/dL 12/08/2022 4:[address] [facility] Anion Gap 15 8 - 18 12/08/2022 4:[address] [facility] BUN/Creatinine Ratio 15 7 - 23 12/08/2022 4:[address] [facility] Osmolality Calculated 308(H) 270 - 300 mOsm/kg 12/08/2022 4:[address] [facility] eGFR by CKD-EPI 37(L) >=90 mL/min/1.7 3 m2 12/08/2022 4:25 AM [facility] Blood BLOOD SPECIMEN / Unknown Lab Venipuncture / Unknown 12/08/2022 3:31 AM [facility] 12/08/2022 3:57 AM [facility] Levi Cooper MD LAB - CHEMISTR Y ORDERABLES [facility] [address] [place] [id number], [place] [phone] * (ABNORMAL) GLUCOSE - POINT OF CARE (12/07/2022 11:50 PM [facility]) Glucose WB/POC 133(H) 70 - 115 mg/dL 12/07/2022 11:55 PM [facility] Specimen Type Cap Fingerstick 2022 11:55 PM [facility] Blood BLOOD SPECIMEN / Unknown 12/07/2022 11:50 PM [facility] 12/07/2022 11:55 PM [facility] Branden Galindo MD LAB - POINT OF CARE ORDERABLES Performing Organization Address City/[facility]/ZIP Co de Phone Number [address] [address], [place] [phone] * (ABNORMAL) GLUCOSE - POINT OF CARE (12/07/2022 9:25 PM [facility]) Glucose WB/POC 146(H) 70 - 115 mg/dL 12/07/2022 9:26 PM [facility] Specimen Type Cap Fingerstick 2022 9:26 PM [facility] Blood BLOOD SPECIMEN / Unknown 12/07/2022 9:25 PM [facility] 12/07/2022 9:26 PM [facility] Branden Galindo MD LAB - POINT OF CARE ORDERABLES [address] [address], [place] [phone] * GLUCOSE - POINT OF CARE (12/07/2022 4:53 PM [facility]) Glucose WB/POC 105 70 - 115 mg/dL 12/07/2022 4:58 PM [facility] Specimen Type Arterial 12/07/2022 4:58 PM [facility] Blood BLOOD SPECIMEN / Unknown 12/07/2022 4:53 PM [facility] 12/07/2022 4:58 PM [facility] Branden Galindo MD LAB - POINT OF CARE ORDERABLES [address] [address], [facility] [phone] * GLUCOSE - POINT OF CARE (12/07/2022 11:51 AM [facility]) Glucose WB/POC 70 70 - 115 mg/dL 12/07/2022 11:[address] [facility] Specimen Type Cap Fingerstick 2022 11:51 AM [facility] Blood BLOOD SPECIMEN / Unknown 12/07/2022 11:51 AM [facility] 12/07/2022 11:51 AM [facility] Branden Galindo MD LAB - POINT OF CARE ORDERABLES Performing Organization Address City/[facility]/ZIP Co de Phone Number [address] [address], [place] [phone] * (ABNORMAL) GLUCOSE - POINT OF CARE (12/07/2022 11:29 AM [facility]) Glucose WB/POC 48(LL) 70 - 115 mg/dL 12/07/2022 11:34 AM [facility] Specimen Type Arterial 12/07/2022 11:[address] [facility] Blood BLOOD SPECIMEN / Unknown 12/07/2022 11:29 AM [facility] 12/07/2022 11:34 AM [facility] Branden Galindo MD LAB - POINT OF CARE ORDERABLES Performing Organization Address City/[facility]/ZIP Co de Phone Number [address] [address], [facility] [phone] * (ABNORMAL) GLUCOSE - POINT OF CARE (12/07/2022 8:00 AM [facility]) Glucose WB/POC 177(H) 70 - 115 mg/dL 12/07/2022 8:01 AM [facility] Specimen Type Cap Fingerstick 2022 8:[address] [facility] Blood BLOOD SPECIMEN / Unknown 12/07/2022 8:00 AM [facility] 12/07/2022 8:01 [facility] LAB - POINT OF CARE ORDERABLES Performing Organization Address [facility]/ZIP Co de Phone Number [address] [address], [facility] [phone] * (ABNORMAL) BASIC METABOLIC PANEL (CALCIUM TOTAL) (12/07/2022 5:34 AM [facility]) BUN 30(H) 7 - 26 mg/dL 12/07/2022 6:[address] [facility] Creatinine 2.13(H) 0.56 - 0.96 mg/dL 12/07/2022 6:[address] [facility] Sodium 142 136 - 145 mmol/L 12/07/2022 6:[address] [facility] Potassium 3.5 3.5 - 4.5 mmol/L 12/07/2022 6:[address] [facility] Chloride 113(H) 98 - 107 mmol/L 12/07/2022 6:[address] [facility] CO2 21(L) 22 - 29 mmol/L 12/07/2022 6:[address] [facility] Glucose 91 70 - 115 mg/dL 12/07/2022 6:[address] [facility] Calcium 7.2(L) 8.4 - 10.2 mg/dL 12/07/2022 6:[address] [facility] Anion Gap 12 8 - 18 12/07/2022 6:[address] [facility] BUN/Creatinine Ratio 14 7 - 23 12/07/2022 6:[address] [facility] Osmolality Calculated 300 270 - 300 mOsm/kg 12/07/2022 6:[address] [facility] eGFR by CKD-EPI 31(L) >=90 mL/min/1.7 3 m2 12/07/2022 6:[address] [facility] Blood BLOOD SPECIMEN / Unknown Lab Venipuncture / Unknown 12/07/2022 5:34 AM PRODUCTION GRIP 12/07/2022 5:48 AM PRODUCTION GRIP Levi Cooper MD LAB - CHEMISTR Y ORDERABLES [address] [address], [place] [phone] * VANCOMYCIN LEVEL RANDOM (12/07/2022 5:34 AM PRODUCTION GRIP) Vancomycin Random 18.5 Therapeutic Ranges not established for random specimens ug/mL 12/07/2022 6:[address] [facility] Blood BLOOD SPECIMEN / Unknown Lab Venipuncture / Unknown 12/07/2022 5:34 AM PRODUCTION GRIP 12/07/2022 5:48 AM PRODUCTION GRIP Narrative [facility] - 12/07/2022 6:18 AM PRODUCTION GRIP See institution protocol. Leigh SIBLEY [facility] - CHEMISTRY DIVINA OLVERA [address] [address], [place] [phone] * (ABNORMAL) DIFFERENTIAL MANUAL (12/07/2022 5:33 AM PRODUCTION GRIP) WBC (corrected for NRBC) 20.5 10? 3 /uL 12/07/2022 7:[address] [facility] Total Cell Count 100 12/07/19 7:[address] [facility] Neutrophils Absolute Manual 17.02(H) 1.60 - 7.00 10? 3 /uL 12/07/2022 7:[address] [facility] Comment:(BANDS+SEGS) x WBC = NEUT # (ANC) Lymphocyte Absolute Manual 1.44 1.10 - 3.90 10? 3 /uL 12/07/2022 7:[address] [facility] Monocytes Absolute Manual 0.62 0.26 - 1.07 10? 3 /uL 12/07/2022 7:[address] [facility] Eosinophils Absolute Manual 0.62(H) 0.00 - 0.47 10? 3 /uL 12/07/2022 7:[address] [facility] Band % Manual 3 0 - 10 % 12/07/2022 7:[address] [facility] Neutrophil % Manual 80(H) 35 - 70 % 12/07/2022 7:[address] [facility] Lymphocyte % Manual 7(L) 20 - 43 % 12/07/2022 7:[address] [facility] Monocytes % Manual 3(L) 5 - 13 % 12/07/2022 7:[address] [facility] Eosinophils % Manual 3 0 - 6 % 12/07/2022 7:[address] [facility] Metamyelocyte % Manual 2(H) 0 % 12/07/2022 7:[address] [facility] Myelocytes % Manual 2(H) 0 % 12/07/2022 7:[address] [facility] nRBC Manual 1(H) 0 /100 WBC 12/07/2022 7:[address] [facility] Platelet Estimate Increased(A ) Adequate 12/07/2022 7:[address] [facility] Anisocytosis 1+(A) None 12/07/2022 7:[address] [facility] Microcytes Occasional( A) None 12/07/2022 7:[address] [facility] Hypochromia Few(A) None 12/07/2022 7:[address] [facility] Target Cells 1+(A) None 12/07/2022 7:[address] [facility] Schistocytes Occasional( A) None 12/07/2022 7:[address] [facility] Comment Platelet Platelet clumpled on the smear but appear increased. 12/07/2022 7:[address] [facility] Blood BLOOD SPECIMEN / Unknown Lab Venipuncture / Unknown 12/07/2022 5:33 AM PRODUCTION GRIP 12/07/2022 5:48 AM PRODUCTION GRIP Levi Cooper MD LAB - HEMATOLO GY ORDERABLES [facility] [address] [place] [address], [facility] [phone] * (ABNORMAL) CBC W AUTO DIFFERENTIAL (12/07/2022 5:33 AM PRODUCTION GRIP) WBC 20.5(H) 3.5 - 10.5 10? 3 /uL 12/07/2022 7:[address] [facility] RBC 3.57(L) 3.80 - 5.20 10? 6 /uL 12/07/2022 7:[address] [facility] Hemoglobin 8.1(L) 12.0 - 15.6 g/dL 12/07/2022 7:[address] [facility] Hematocrit 27.3(L) 35.0 - 45.0 % 12/07/2022 7:[address] [facility] MCV 76.5(L) 80.7 - 98.3 fL 12/07/2022 7:[address] [facility] MCH 22.7(L) 26.7 - 34.0 pg 12/07/2022 7:[address] [facility] MCHC 29.7(L) 30.8 - 35.9 g/dL 12/07/2022 7:[address] [facility] RDW-SD 54.8(H) 36.0 - 50.0 fL 12/07/2022 7:[address] [facility] RDW-CV 20.1(H) 11.2 - 14.8 % 12/07/2022 7:[address] [facility] Platelet Count 12/07/2022 7:[address] [facility] Comment: Platelets are clumped, appear as increased on the slide. ??A blue top citrated tube is required for a platelet count. ?? Notified Lefyt Aguilar, RN/6N at 0725H on 12/07/22. MPV 12/07/2022 7:[address] [facility] Comment:Unable to Report Immature Platelet Fraction 12/07/2022 7:[address] [facility] Comment:Unable to Report nRBC Absolute 0.17(H) 0 10? 3 /uL 12/07/2022 7:[address] [facility] nRBC Auto 0.8(H) 0 /100 WBC 12/07/2022 7:[address] [facility] Blood BLOOD SPECIMEN / Unknown Lab Venipuncture / Unknown 12/07/2022 5:33 AM PRODUCTION GRIP 12/07/2022 5:48 AM PRODUCTION GRIP Levi Cooper MD LAB - HEMATOLO GY ORDERABLES [address] [address], [place] [phone] * GLUCOSE - POINT OF CARE (12/07/2022 5:15 AM PRODUCTION GRIP) Glucose WB/POC 92 70 - 115 mg/dL 12/07/2022 5:[address] [facility] Specimen Type Cap Fingerstick 2022 5:[address] [facility] Blood BLOOD SPECIMEN / Unknown 12/07/2022 5:15 AM PRODUCTION GRIP 12/07/2022 5:20 AM PRODUCTION GRIP Branden Galindo MD LAB - POINT OF CARE ORDERABLES Performing Organization Address City/[facility]/ZIP Co de Phone Number [address] [address], [place] [phone] * (ABNORMAL) GLUCOSE - POINT OF CARE (12/07/2022 4:50 AM PRODUCTION GRIP) Glucose WB/POC 62(L) 70 - 115 mg/dL 12/07/2022 4:56 AM PRODUCTION GRIP [facility] Specimen Type Cap Fingerstick 2022 4:[address] [facility] Blood BLOOD SPECIMEN / Unknown 12/07/2022 4:50 AM PRODUCTION GRIP 12/07/2022 4:56 AM PRODUCTION GRIP Branden Galindo MD LAB - POINT OF CARE ORDERABLES [address] [address], [place] [phone] * (ABNORMAL) GLUCOSE - POINT OF CARE (12/07/2022 4:19 AM PRODUCTION GRIP) [facility] Glucose WB/POC 69(L) 70 - 115 mg/dL 12/07/2022 4:27 AM PRODUCTION GRIP [facility] Specimen Type Cap Fingerstick 2022 4:27 AM PRODUCTION GRIP [facility] Blood BLOOD SPECIMEN / Unknown 12/07/2022 4:19 AM PRODUCTION GRIP 12/07/2022 4:27 AM PRODUCTION GRIP Branden Galindo MD LAB - POINT OF CARE ORDERABLES Performing Organization Address City/[facility]/ZIP Co de Phone Number [address] [address], [facility] [phone] * PREPARE (CROSSMATCH) RBC UNIT(S), 2 Units (12/07/2022 1:17 AM PRODUCTION GRIP) Unit Description AS1 LR PRBC [facility] Unit ABO A [facility] Unit Rh POS [facility] Product Number R44 [facility] B LO[facility] Unit Donor # [id number] [facility] B[facility] Unit Status released [facility] BLOO D [facility] LAB Product Code [id number] [facility] OD [facility] Blood Type Barcode 6200 [facility] Expiration Date S BLOOD BANK LAB Unit Description AS1 LR PRBC [facility] Unit ABO A [facility] Unit Rh POS [facility] Product Number R02 [facility] LO[facility] Unit Donor # [id number] [facility] Unit Status released [facility] BLOO D [facility] LAB Product Code [id number] [facility] BLO OD BANK LAB Blood Type Barcode 6200 [facility] Expiration Date S BLOOD BANK LAB Blood Bank BLOOD SPECIMEN / Unknown 12/03/2022 2:48 AM PRODUCTION GRIP Graeme Rodgers MD LAB - BLOOD BANK O RDERABLES Performing Organization Address City/[facility]/ZIP Co de Phone Number [facility] [address] [place] [address], [place] [phone] * (ABNORMAL) GLUCOSE - POINT OF CARE (12/07/2022 12:04 AM PRODUCTION GRIP) Glucose WB/POC 358(H) 70 - 115 mg/dL 12/07/2022 12:12 AM PRODUCTION GRIP [facility] Specimen Type Cap Fingerstick 2022 12:12 AM PRODUCTION GRIP [facility] Blood BLOOD SPECIMEN / Unknown 12/07/2022 12:04 AM PRODUCTION GRIP 12/07/2022 12:12 AM PRODUCTION GRIP Branden Galindo MD LAB - POINT OF CARE ORDERABLES Performing Organization Address [facility]/ZIP Co de Phone Number [facility] [address] [place] [address], [place] [phone] * (ABNORMAL) GLUCOSE - POINT OF CARE (12/06/2022 8:10 PM PRODUCTION GRIP) Glucose WB/POC 160(H) 70 - 115 mg/dL 12/06/2022 8:14 PM PRODUCTION GRIP [facility] Specimen Type Cap Fingerstick 2022 8:14 PM PRODUCTION GRIP [facility] Blood BLOOD SPECIMEN / Unknown 12/06/2022 8:10 PM PRODUCTION GRIP 12/06/2022 8:14 PM PRODUCTION GRIP Branden Galindo MD LAB - POINT OF CARE ORDERABLES [facility] [address] [place] [address], [place] [phone] * BACTERIAL VAGINOSIS RAPID TEST (12/06/2022 6:20 PM PRODUCTION GRIP) Bacterial Vaginosis Rapid Negative Negative 12/06/2022 7:00 PM PRODUCTION GRIP [facility] Microbiology VAGINAL SWAB / Unknown Collection / Unknown 12/06/2022 6:20 PM PRODUCTION GRIP 12/06/2022 6:31 PM PRODUCTION GRIP Leigh SIBLEY LAB - MICROBIOLOGY O RDERABLES [address] [address], [place] [phone] * (ABNORMAL) GLUCOSE - POINT OF CARE (12/06/2022 5:11 PM PRODUCTION GRIP) Glucose WB/POC 146(H) 70 - 115 mg/dL 12/06/2022 5:16 PM PRODUCTION GRIP [facility] Specimen Type Cap Fingerstick 2022 5:16 PM PRODUCTION GRIP [facility] Blood BLOOD SPECIMEN / Unknown 12/06/2022 5:11 PM PRODUCTION GRIP 12/06/2022 5:16 PM PRODUCTION GRIP Branden Galindo MD LAB - POINT OF CARE ORDERABLES Performing Organization Address City/[facility]/ZIP Co de Phone Number [address] [address], [place] [phone] * GLUCOSE - POINT OF CARE (12/06/2022 11:50 AM PRODUCTION GRIP) Glucose WB/POC 109 70 - 115 mg/dL 12/06/2022 11:55 AM PRODUCTION GRIP [facility] Specimen Type Cap Fingerstick 2022 11:55 AM PRODUCTION GRIP [facility] Blood BLOOD SPECIMEN / Unknown 12/06/2022 11:50 AM PRODUCTION GRIP 12/06/2022 11:55 AM PRODUCTION GRIP Branden Galindo MD LAB - POINT OF CARE ORDERABLES [address] [address], [place] [phone] * (ABNORMAL) GLUCOSE - POINT OF CARE (12/06/2022 7:32 AM PRODUCTION GRIP) Glucose WB/POC 198(H) 70 - 115 mg/dL 12/06/2022 7:37 AM PRODUCTION GRIP [facility] Specimen Type Cap Fingerstick 2022 7:[address] [facility] Blood BLOOD SPECIMEN / Unknown 12/06/2022 7:32 AM PRODUCTION GRIP 12/06/2022 7:36 AM PRODUCTION GRIP Rafa Patel MD LAB - POINT OF CARE ORDERABLES [facility] [address] [place] [address], [place] [phone] * (ABNORMAL) GLUCOSE - POINT OF CARE (12/06/2022 4:05 AM PRODUCTION GRIP) Glucose WB/POC 147(H) 70 - 115 mg/dL 12/06/2022 4:[address] [facility] Specimen Type Cap Fingerstick 2022 4:[address] [facility] Blood BLOOD SPECIMEN / Unknown 12/06/2022 4:05 AM PRODUCTION GRIP 12/06/2022 4:10 AM PRODUCTION GRIP Rafa Patel MD LAB - POINT OF CARE ORDERABLES [facility] [address] [place] [address], [place] [phone] * (ABNORMAL) DIFFERENTIAL MANUAL (12/06/2022 4:01 AM PRODUCTION GRIP) WBC (corrected for NRBC) 19.5 10? 3 /uL 12/06/2022 7:[address] [facility] Total Cell Count 100 12/06/19 23 7:[address] [facility] Neutrophils Absolute Manual 17.55(H) 1.60 - 7.00 10? 3 /uL 12/06/2022 7:[address] [facility] Comment:(BANDS+SEGS) x WBC = NEUT # (ANC) Lymphocyte Absolute Manual 1.17 1.10 - 3.90 10? 3 /uL 12/06/2022 7:[address] [facility] Monocytes Absolute Manual 0.39 0.26 - 1.07 10? 3 /uL 12/06/2022 7:[address] [facility] Eosinophils Absolute Manual 0.20 0.00 - 0.47 10? 3 /uL 12/06/2022 7:[address] [facility] Basophil Absolute Manual 0.20(H) 0.00 - 0.08 10? 3 /uL 12/06/2022 7:[address] [facility] Neutrophil % Manual 90(H) 35 - 70 % 12/06/2022 7:[address] [facility] Lymphocyte % Manual 6(L) 20 - 43 % 12/06/2022 7:[address] [facility] Monocytes % Manual 2(L) 5 - 13 % 12/06/2022 7:[address] [facility] Eosinophils % Manual 1 0 - 6 % 12/06/2022 7:[address] [facility] Basophils % Manual 1 0 - 2 % 12/06/2022 7:[address] [facility] Platelet Estimate Increased (A) Adequate 12/06/2022 7:[address] [facility] Anisocytosis 1+(A) None 12/06/2022 7:[address] [facility] Poikilocytes 1+(A) None 12/06/2022 7:[address] [facility] Microcytes 1+(A) None 12/06/2022 7:[address] [facility] Basophilic Stippling Occasiona l(A) None 12/06/2022 7:[address] [facility] Target Cells 1+(A) None 12/06/2022 7:[address] [facility] Schistocytes Occasiona l(A) None 12/06/2022 7:[address] [facility] [place] Cells 1+(A) None 12/06/2022 7:[address] [facility] Blood BLOOD SPECIMEN / Unknown Lab Venipuncture / Unknown 12/06/2022 4:01 AM PRODUCTION GRIP 12/06/2022 4:10 AM PRODUCTION GRIP Levi Cooper MD LAB - HEMATOLO GY ORDERABLES [facility] [address] [place] [address], [facility] [phone] * (ABNORMAL) CBC W AUTO DIFFERENTIAL (12/06/2022 4:01 AM PRODUCTION GRIP) WBC 19.5(H) 3.5 - 10.5 10? 3 /uL 12/06/2022 5:[address] [facility] RBC 3.34(L) 3.80 - 5.20 10? 6 /uL 12/06/2022 5:[address] [facility] Hemoglobin 7.6(L) 12.0 - 15.6 g/dL 12/06/2022 5:[address] [facility] Hematocrit 25.2(L) 35.0 - 45.0 % 12/06/2022 5:[address] [facility] MCV 75.4(L) 80.7 - 98.3 fL 12/06/2022 5:[address] [facility] MCH 22.8(L) 26.7 - 34.0 pg 12/06/2022 5:[address] [facility] MCHC 30.2(L) 30.8 - 35.9 g/dL 12/06/2022 5:[address] [facility] RDW-SD 53.1(H) 36.0 - 50.0 fL 12/06/2022 5:[address] [facility] RDW-CV 19.7(H) 11.2 - 14.8 % 12/06/2022 5:[address] [facility] Platelet Count 577(H) 150 - 400 10? 3 /uL 12/06/2022 5:[address] [facility] MPV 8.9(L) 9.4 - 12.9 fL 12/06/2022 5:[address] [facility] nRBC Absolute 0.12(H) 0 10? 3 /uL 12/06/2022 5:[address] [facility] nRBC Auto 0.6(H) 0 /100 WBC 12/06/2022 5:[address] [facility] Blood BLOOD SPECIMEN / Unknown Lab Venipuncture / Unknown 12/06/2022 4:01 AM PRODUCTION GRIP 12/06/2022 4:10 AM [facility] Levi [facility] MD LAB - HEMATOLO GY ORDERABLES [facility] [address] [place] [address], [facility] [phone] * (ABNORMAL) BASIC METABOLIC PANEL (CALCIUM TOTAL) (12/06/2022 4:01 AM [facility] BUN 33(H) 7 - 26 mg/dL 12/06/2022 4:[address] [facility] Creatinine 2.57(H) 0.56 - 0.96 mg/dL 12/06/2022 4:[address] [facility] Sodium 140 136 - 145 mmol/L 12/06/2022 4:[address] [facility] Potassium 3.7 3.5 - 4.5 mmol/L 12/06/2022 4:[address] [facility] Chloride 111(H) 98 - 107 mmol/L 12/06/2022 4:[address] [facility] CO2 20(L) 22 - 29 mmol/L 12/06/2022 4:[address] [facility] Glucose 142(H) 70 - 115 mg/dL 12/06/2022 4:[address] [facility] Calcium 7.4(L) 8.4 - 10.2 mg/dL 12/06/2022 4:[address] [facility] Anion Gap 13 8 - 18 12/06/2022 4:[address] [facility] BUN/Creatinine Ratio 13 7 - 23 12/06/2022 4:[address] [facility] Osmolality Calculated 300 270 - 300 mOsm/kg 12/06/2022 4:[address] [facility] eGFR by CKD-EPI 25(L) >=90 mL/min/1.7 3 m2 12/06/2022 4:[address] [facility] Blood BLOOD SPECIMEN / Unknown Lab Venipuncture / Unknown 12/06/2022 4:01 AM PRODUCTION GRIP 12/06/2022 4:10 AM [facility] Levi Cooper MD LAB - CHEMISTR Y ORDERABLES [facility] [address] [place] [address], [facility] [phone] * (ABNORMAL) GLUCOSE - POINT OF CARE (12/06/2022 12:17 AM PRODUCTION GRIP) Glucose WB/POC 177(H) 70 - 115 mg/dL 12/06/2022 12:22 AM PRODUCTION GRIP [facility] Specimen Type Cap Fingerstick 2022 12:22 AM PRODUCTION GRIP [facility] Blood BLOOD SPECIMEN / Unknown 12/06/2022 12:17 AM PRODUCTION GRIP 12/06/2022 12:22 AM PRODUCTION GRIP Rafa Patel MD LAB - POINT OF CARE ORDERABLES [facility] [address] [place] [address], [place] [phone] * (ABNORMAL) GLUCOSE - POINT OF CARE (12/05/2022 8:20 PM PRODUCTION GRIP) Glucose WB/POC 191(H) 70 - 115 mg/dL 12/05/2022 8:26 PM PRODUCTION GRIP [facility] Specimen Type Cap Fingerstick 2022 8:26 PM PRODUCTION GRIP [facility] Blood BLOOD SPECIMEN / Unknown 12/05/2022 8:20 PM PRODUCTION GRIP 12/05/2022 8:26 PM PRODUCTION GRIP Rafa Patel MD LAB - POINT OF CARE ORDERABLES [facility] [address] [place] [address], [place] [phone] * CHLAMYDIA + GC AMPLIFIED PROBE (12/05/2022 6:19 PM PRODUCTION GRIP) Chlamydia Amplified Probe Negative Negative 12/06/2022 6:41 AM PRODUCTION GRIP [facility] GC Amplified Probe Negative Negative 12/06/2022 6:41 AM PRODUCTION GRIP [facility] Microbiology ENTIRE VAGINA / Unknown Collection / Unknown 12/05/2022 6:19 PM PRODUCTION GRIP 12/05/2022 6:30 PM PRODUCTION GRIP Narrative [facility] - 12/06/2022 6:41 AM PRODUCTION GRIP Results based on detection/no detection of ribosomal RNA by amplified method. Leigh SIBLEY [facility] - MICROBIOLOGY O DARRE[place] [facility] [address] [facility] [place] [address], [facility] [phone] * CULTURE BLOOD (12/05/2022 5:04 PM PRODUCTION GRIP) Culture No growth day 5 CHARLES 12/10/2022 7:02 PM PRODUCTION GRIP [facility] Blood PERIPHERAL BLOOD / Unknown Venipuncture / Unknown 12/05/2022 5:04 PM PRODUCTION GRIP 12/05/2022 5:11 PM PRODUCTION GRIP Leigh SIBLEY [facility] - MICROBIOLOGY O DARRELL Performing Organization Address City/[facility]/ZIP Co de Phone Number [facility]CRO[facility] [address] [place] [address], [facility] [phone] * (ABNORMAL) CBC W/O DIFFERENTIAL (12/05/2022 5:03 PM PRODUCTION GRIP) WBC 16.8(H) 3.5 - 10.5 10? 3 /uL 12/05/2022 5:[address] [facility] RBC 2.94(L) 3.80 - 5.20 10? 6 /uL 12/05/2022 5:[address] [facility] Hemoglobin 6.6(L) 12.0 - 15.6 g/dL 12/05/2022 5:[address] [facility] Hematocrit 21.4(L) 35.0 - 45.0 % 12/05/2022 5:[address] [facility] MCV 72.8(L) 80.7 - 98.3 fL 12/05/2022 5:[address] [facility] MCH 22.4(L) 26.7 - 34.0 pg 12/05/2022 5:[address] [facility] MCHC 30.8 30.8 - 35.9 g/dL 12/05/2022 5:[address] [facility] RDW-SD 50.7(H) 36.0 - 50.0 fL 12/05/2022 5:[address] [facility] RDW-CV 19.4(H) 11.2 - 14.8 % 12/05/2022 5:[address] [facility] Platelet Count 493(H) 150 - 400 10? 3 /uL 12/05/2022 5:[address] [facility] MPV 9.2(L) 9.4 - 12.9 fL 12/05/2022 5:[address] [facility] nRBC Absolute 0.09(H) 0 10? 3 /uL 12/05/2022 5:[address] [facility] nRBC Auto 0.5(H) 0 /100 WBC 12/05/2022 5:[address] [facility] Blood BLOOD SPECIMEN / Unknown Venipuncture / Unknown 12/05/2022 5:03 PM PRODUCTION GRIP 12/05/2022 5:14 PM PRODUCTION GRIP Ghassan Rene MD LAB - HEMATOLOGY ORD ERABLES [address] [address], [place] [phone] * (ABNORMAL) GLUCOSE - POINT OF CARE (12/05/2022 5:02 PM PRODUCTION GRIP) Glucose WB/POC 122(H) 70 - 115 mg/dL 12/05/2022 5:[address] [facility] Specimen Type Cap Fingerstick 2022 5:[address] [facility] Blood BLOOD SPECIMEN / Unknown 12/05/2022 5:02 PM PRODUCTION GRIP 12/05/2022 5:07 PM PRODUCTION GRIP Rafa Patel MD LAB - POINT OF CARE ORDERABLES [address] [address], [place] [phone] * PATHOLOGY TISSUE (12/05/2022 3:17 PM PRODUCTION GRIP) Case Report Surgical Pathology Report ? Case: [id number] ? Authorizing Provider: ??Graeme Rodgers MD ?Collected: ? 12/05/2022 03:17 PM ? Ordering Location: ? [facility] ?Received: ?12/06/2022 07:49 AM ? Pathologist: ? Alix Hope MD ? Specimen: ?Amputation Leg AK, Left above the knee amputation ? 12/10/2022 1:45 PM [facility] Final Diagnosis Leg, left, [id number] amputation (A): - Viable bone and soft tissue margins - No necrosis or osteomyelitis at prior amputation site - Arteries free of significant atherosclerosis 12/10/2022 1:45 PM [facility] Microscopic Description and Comment Microscopic examination substantiates the final diagnosis. 12/10/2022 1:45 PM [facility] Clinical History Patient is a 32-year-old woman with poorly controlled diabetes who initially presented with necrotizing fasciitis of left foot with amputation 12/02/2022. 12/10/2022 1:45 PM [facility] Gross Description Requisition and a [...] arteries are are patent and mildly calcified. Proofer sections are submitted as follows: A1- product sales representative shave of soft tissue and skin from the surgical margin closest to lesion A2-bone marrow margin A3-previous bony disarticulated A4-previous soft tissue margin A5-posterior vessels A6-anterior vessels MA 12/10/2022 1:45 PM [facility] Disclaimer The performance characteristics of all immunohistochemical and indirect immunofluorescence stains (if any) cited in this report were determined by the Histopathology Laboratory of [facility]. Some of these tests were developed [...] the attending (teaching) pathologist. 12/10/2022 1:45 PM [facility] Embedded Images 12/10/2022 1:45 PM [facility] Gross only SPECIMEN OBTAINED BY AMPUTATION / Unknown 12/05/2022 3:17 PM PRODUCTION GRIP 12/06/2022 7:49 AM PRODUCTION GRIP Comment:Pre-op diagnosis: Gangrene Graeme Rodgers MD LAB - PATHOLOGY/CY TOLOGY ORDERABLES [facility] [address] [phone] * HCG URINE QUALITATIVE - POCT (IP) INTERFACED (12/05/2022 1:46 PM PRODUCTION GRIP) HCG Qual Urine Negative Negative 12/05/2022 1:52 PM [facility] Urine URINE / Unknown 12/05/2022 1 :46 PM PRODUCTION GRIP 12/05/2022 1:52 PM PRODUCTION GRIP Rafa Patel MD LAB - POINT OF CARE ORDERABLES [facility] [address] [place] [id number], [place] [phone] * HCG URINE QUAL POCT NOTIFICATION (12/05/2022 1:39 PM PRODUCTION GRIP) Pathologist [facility] Comment Notification Label Only - See Separate Report 12/05/2022 3:02 PM PRODUCTION GRIP [facility] Urine URINE / Unknown 12/05/2022 1 :39 PM PRODUCTION GRIP 12/05/2022 1:41 PM PRODUCTION GRIP Graeme Rodgers MD LAB - URINALYSIS O RDERABLES [address] [address], [place] [phone] * (ABNORMAL) GLUCOSE - POINT OF CARE (12/05/2022 12:22 PM PRODUCTION GRIP) Pathologist [facility] Glucose WB/POC 153(H) 70 - 115 mg/dL 12/05/2022 12:[address] [facility] Specimen Type Cap Fingerstick 2022 12:[address] [facility] Blood BLOOD SPECIMEN / Unknown 12/05/2022 12:22 PM PRODUCTION GRIP 12/05/2022 12:23 PM PRODUCTION GRIP Rafa Patel MD LAB - POINT OF CARE ORDERABLES Performing Organization Address City/[facility]/ZIP Co de Phone Number [address] [address], [place] [phone] * (ABNORMAL) DIFFERENTIAL MANUAL (12/05/2022 10:06 AM PRODUCTION GRIP) Pathologist [facility] WBC (corrected for NRBC) 18.6 10? 3 /uL 12/05/2022 11:[address] [facility] Total Cell Count 100 12/05/19 23 11:[address] [facility] Neutrophils Absolute Manual 17.11(H) 1.60 - 7.00 10? 3 /uL 12/05/2022 11:[address] [facility] Comment:(BANDS+SEGS) x WBC = NEUT # (ANC) Lymphocyte Absolute Manual 0.74(L) 1.10 - 3.90 10? 3 /uL 12/05/2022 11:[address] [facility] Monocytes Absolute Manual 0.37 0.26 - 1.07 10? 3 /uL 12/05/2022 11:[address] [facility] Eosinophils Absolute Manual 0.19 0.00 - 0.47 10? 3 /uL 12/05/2022 11:[address] [facility] Neutrophil % Manual 92(H) 35 - 70 % 12/05/2022 11:[address] [facility] Lymphocyte % Manual 4(L) 20 - 43 % 12/05/2022 11:[address] [facility] Monocytes % Manual 2(L) 5 - 13 % 12/05/2022 11:[address] [facility] Eosinophils % Manual 1 0 - 6 % 12/05/2022 11:[address] [facility] Metamyelocyte % Manual 1(H) 0 % 12/05/2022 11:[address] [facility] Platelet Estimate Increased (A) Adequate 12/05/2022 11:[address] [facility] Anisocytosis 1+(A) None 12/05/2022 11:[address] [facility] Microcytes Few(A) None 12/05/2022 11:[address] [facility] Macrocytosis 1+(A) None 12/05/2022 11:[address] [facility] Hypochromia 1+(A) None 12/05/2022 11:[address] [facility] Polychromasia Occasiona l(A) None 12/05/2022 11:[address] [facility] Target Cells 1+(A) None 12/05/2022 11:[address] [facility] Ovalocytes Few(A) None 12/05/2022 11:[address] [facility] Carli Cells 1+(A) None 12/05/2022 11:[address] [facility] Blood BLOOD SPECIMEN / Unknown Lab Venipuncture / Unknown 12/05/2022 10:06 AM PRODUCTION GRIP 12/05/2022 10:34 AM PRODUCTION GRIP Levi Cooper MD LAB - HEMATOLO GY ORDERABLES [facility] [address] [place] [address], [facility] [phone] * (ABNORMAL) CBC W AUTO DIFFERENTIAL (12/05/2022 10:06 [facility] WBC 18.6(H) 3.5 - 10.5 10? 3 /uL 12/05/2022 10:[address] [facility] RBC 3.51(L) 3.80 - 5.20 10? 6 /uL 12/05/2022 10:[address] [facility] Hemoglobin 7.8(L) 12.0 - 15.6 g/dL 12/05/2022 10:[address] [facility] Hematocrit 25.8(L) 35.0 - 45.0 % 12/05/2022 10:[address] [facility] [facility] MCV 73.5(L) 80.7 - 98.3 fL 12/05/2022 10:[address] [facility] MCH 22.2(L) 26.7 - 34.0 pg 12/05/2022 10:[address] [facility] MCHC 30.2(L) 30.8 - 35.9 g/dL 12/05/2022 10:[address] [facility] RDW-SD 52.3(H) 36.0 - 50.0 fL 12/05/2022 10:[address] [facility] RDW-CV 19.6(H) 11.2 - 14.8 % 12/05/2022 10:[address] [facility] Platelet Count 583(H) 150 - 400 10? 3 /uL 12/05/2022 10:[address] [facility] MPV 8.9(L) 9.4 - 12.9 fL 12/05/2022 10:[address] [facility] nRBC Absolute 0.14(H) 0 10? 3 /uL 12/05/2022 10:[address] [facility] nRBC Auto 0.8(H) 0 /100 WBC 12/05/2022 10:[address] [facility] Blood BLOOD SPECIMEN / Unknown Lab Venipuncture / Unknown 12/05/2022 10:06 AM PRODUCTION GRIP 12/05/2022 10:34 AM PRODUCTION GRIP Levi Cooper MD LAB - HEMATOLO GY ORDERABLES [facility] [address] [place] [address], [facility] [phone] * (ABNORMAL) BASIC METABOLIC PANEL (CALCIUM TOTAL) (12/05/2022 10:06 AM PRODUCTION GRIP) BUN 37(H) 7 - 26 mg/dL 12/05/2022 12:[address] [facility] Creatinine 2.67(H) 0.56 - 0.96 mg/dL 12/05/2022 12:[address] [facility] Sodium 138 136 - 145 mmol/L 12/05/2022 12:[address] [facility] Potassium 3.3(L) 3.5 - 4.5 mmol/L 12/05/2022 12:[address] [facility] Chloride 117(H) 98 - 107 mmol/L 12/05/2022 12:[address] [facility] CO2 19(L) 22 - 29 mmol/L 12/05/2022 12:[address] [facility] Glucose 142(H) 70 - 115 mg/dL 12/05/2022 12:[address] [facility] Calcium 6.7(L) 8.4 - 10.2 mg/dL 12/05/2022 12:[address] [facility] Anion Gap 5(L) 8 - 18 12/05/2022 12:[address] [facility] BUN/Creatinine Ratio 14 7 - 23 12/05/2022 12:[address] [facility] Osmolality Calculated 297 270 - 300 mOsm/kg 12/05/2022 12:[address] [facility] [facility] eGFR by CKD-EPI 24(L) >=90 mL/min/1.7 3 m2 12/05/2022 12:[address] [facility] Blood BLOOD SPECIMEN / Unknown Lab Venipuncture / Unknown 12/05/2022 10:06 AM PRODUCTION GRIP 12/05/2022 10:34 AM PRODUCTION GRIP Levi Cooper MD LAB - CHEMISTR Y ORDERABLES [address] [address], [place] [phone] * VANCOMYCIN LEVEL RANDOM (12/05/2022 10:06 AM PRODUCTION GRIP) Vancomycin Random 19.6 Therapeutic Ranges not established for random specimens ug/mL 12/05/2022 12:06 PM PRODUCTION GRIP [facility] Blood BLOOD SPECIMEN / Unknown Lab Venipuncture / Unknown 12/05/2022 10:06 AM PRODUCTION GRIP 12/05/2022 10:34 AM PRODUCTION GRIP Narrative [facility] - 12/05/2022 12:06 PM PRODUCTION GRIP See institution protocol. Levi Cooper MD LAB - CHEMISTR Y ORDERABLES Performing Organization Address City/[facility]/ZIP Co de Phone Number [address] [address], [place] [phone] * (ABNORMAL) GLUCOSE - POINT OF CARE (12/05/2022 8:08 AM PRODUCTION GRIP) Glucose WB/POC 173(H) 70 - 115 mg/dL 12/05/2022 8:[address] [facility] Specimen Type Cap Fingerstick 2022 8:13 AM PRODUCTION GRIP [facility] Blood BLOOD SPECIMEN / Unknown 12/05/2022 8:08 AM PRODUCTION GRIP 12/05/2022 8:12 AM PRODUCTION GRIP Rafa Patel MD LAB - POINT OF CARE ORDERABLES [address] [address], [place] [phone] * (ABNORMAL) GLUCOSE - POINT OF CARE (12/05/2022 2:17 AM PRODUCTION GRIP) Glucose WB/POC 368(H) 70 - 115 mg/dL 12/05/2022 2:[address] [facility] Specimen Type Cap Fingerstick 2022 2:31 AM PRODUCTION GRIP [facility] Blood BLOOD SPECIMEN / Unknown 12/05/2022 2:17 AM PRODUCTION GRIP 12/05/2022 2:31 AM PRODUCTION GRIP Rafa Patel MD LAB - POINT OF CARE ORDERABLES [facility] [address] [place] [address], [place] [phone] * (ABNORMAL) GLUCOSE - POINT OF CARE (12/04/2022 11:15 PM PRODUCTION GRIP) Glucose WB/POC 315(H) 70 - 115 mg/dL 12/04/2022 11:17 PM PRODUCTION GRIP [facility] Specimen Type Cap Fingerstick 2022 11:17 PM PRODUCTION GRIP [facility] Blood BLOOD SPECIMEN / Unknown 12/04/2022 11:15 PM PRODUCTION GRIP 12/04/2022 11:17 PM PRODUCTION GRIP Rafa Patel MD LAB - POINT OF CARE ORDERABLES Performing Organization Address City/[facility]/ZIP Co de Phone Number [facility] [address] [place] [phone], [place] [phone] * (ABNORMAL) GLUCOSE - POINT OF CARE (12/04/2022 8:47 PM PRODUCTION GRIP) Glucose WB/POC 290(H) 70 - 115 mg/dL 12/04/2022 8:52 PM PRODUCTION GRIP [facility] Specimen Type Cap Fingerstick 2022 8:52 PM PRODUCTION GRIP [facility] Blood BLOOD SPECIMEN / Unknown 12/04/2022 8:47 PM PRODUCTION GRIP 12/04/2022 8:51 PM PRODUCTION GRIP Rafa Patel MD LAB - POINT OF CARE ORDERABLES [facility] [address] [place] [address], [place] [phone] * (ABNORMAL) GLUCOSE - POINT OF CARE (12/04/2022 5:10 PM PRODUCTION GRIP) Glucose WB/POC 251(H) 70 - 115 mg/dL 12/04/2022 5:[address] [facility] Specimen Type Cap Fingerstick 2022 5:[address] [facility] Blood BLOOD SPECIMEN / Unknown 12/04/2022 5:10 PM PRODUCTION GRIP 12/04/2022 5:11 PM PRODUCTION GRIP Levi Cooper MD LAB - POINT OF CARE ORDERABLES [address] [address], [facility] [phone] * MAGNESIUM BLOOD (12/04/2022 4:05 PM PRODUCTION GRIP) [facility] Magnesium 2.3 1.6 - 2.6 mg/dL 12/04/2022 4:[address] [facility] Blood BLOOD SPECIMEN / Unknown Lab Venipuncture / Unknown 12/04/2022 4:05 PM PRODUCTION GRIP 12/04/2022 4:16 PM PRODUCTION GRIP Levi Cooper MD LAB - CHEMISTR Y ORDERABLES [address] [address], [facility] [phone] * (ABNORMAL) BASIC METABOLIC PANEL (CALCIUM TOTAL) (12/04/2022 4:05 PM PRODUCTION GRIP) [facility] BUN 36(H) 7 - 26 mg/dL 12/04/2022 4:[address] [facility] Creatinine 3.31(H) 0.56 - 0.96 mg/dL 12/04/2022 4:[address] [facility] Sodium 141 136 - 145 mmol/L 12/04/2022 4:[address] [facility] Potassium 4.3 3.5 - 4.5 mmol/L 12/04/2022 4:[address] [facility] Chloride 109(H) 98 - 107 mmol/L 12/04/2022 4:[address] [facility] CO2 16(L) 22 - 29 mmol/L 12/04/2022 4:[address] [facility] Glucose 238(H) 70 - 115 mg/dL 12/04/2022 4:[address] [facility] Calcium 7.3(L) 8.4 - 10.2 mg/dL 12/04/2022 4:[address] [facility] Anion Gap 20(H) 8 - 18 12/04/2022 4:[address] [facility] BUN/Creatinine Ratio 11 7 - 23 12/04/2022 4:[address] [facility] Osmolality Calculated 308(H) 270 - 300 mOsm/kg 12/04/2022 4:[address] [facility] eGFR by CKD-EPI 18(L) >=90 mL/min/1.7 3 m2 12/04/2022 4:[address] [facility] Blood BLOOD SPECIMEN / Unknown Lab Venipuncture / Unknown 12/04/2022 4:05 PM PRODUCTION GRIP 12/04/2022 4:16 PM PRODUCTION GRIP Levi Cooper MD LAB - CHEMISTR Y ORDERABLES [address] [address], [facility] [phone] * (ABNORMAL) GLUCOSE - POINT OF CARE (12/04/2022 11:40 AM PRODUCTION GRIP) [facility] Glucose WB/POC 246(H) 70 - 115 mg/dL 12/04/2022 11:[address] [facility] Specimen Type Cap Fingerstick 2022 11:[address] [facility] Blood BLOOD SPECIMEN / Unknown 12/04/2022 11:40 AM PRODUCTION GRIP 12/04/2022 11:42 AM PRODUCTION GRIP Levi Cooper MD LAB - POINT OF CARE ORDERABLES [address] [address], [place] [phone] * (ABNORMAL) GLUCOSE - POINT OF CARE (12/04/2022 8:09 AM PRODUCTION GRIP) [facility] Glucose WB/POC 252(H) 70 - 115 mg/dL 12/04/2022 8:10 AM PRODUCTION GRIP [facility] Specimen Type Cap Fingerstick 2022 8:[address] [facility] Blood BLOOD SPECIMEN / Unknown 12/04/2022 8:09 AM PRODUCTION GRIP 12/04/2022 8:10 AM PRODUCTION GRIP Levi Cooper MD LAB - POINT OF CARE ORDERABLES [address] [address], [place] [phone] * VANCOMYCIN LEVEL RANDOM (12/04/2022 3:58 AM PRODUCTION GRIP) [facility] Vancomycin Random 18.8 Therapeutic Ranges not established for random specimens ug/mL 12/04/2022 4:[address] [facility] Blood BLOOD SPECIMEN / Unknown Venipuncture / Unknown 12/04/2022 3:58 AM PRODUCTION GRIP 12/04/2022 4:03 AM PRODUCTION GRIP Narrative [facility] - 12/04/2022 4:34 AM PRODUCTION GRIP See institution protocol. Geronimo Ho MD LAB - CHEMISTRY OR DERABLES Performing Organization Address City/[facility]/ZIP Co de Phone Number [address] [address], [place] [phone] * PHOSPHORUS BLOOD (12/04/2022 3:58 AM PRODUCTION GRIP) [facility] Phosphorus 5.1 2.9 - 5.1 mg/dL 12/04/2022 4:[address] [facility] Blood BLOOD SPECIMEN / Unknown Venipuncture / Unknown 12/04/2022 3:58 AM PRODUCTION GRIP 12/04/2022 4:03 AM PRODUCTION GRIP Levi Cooper MD LAB - CHEMISTR Y ORDERABLES [address] [address], [place] [phone] * MAGNESIUM BLOOD (12/04/2022 3:58 AM PRODUCTION GRIP) Magnesium 2.3 1.6 - 2.6 mg/dL 12/04/2022 4:[address] [facility] Blood BLOOD SPECIMEN / Unknown Venipuncture / Unknown 12/04/2022 3:58 AM PRODUCTION GRIP 12/04/2022 4:03 AM PRODUCTION GRIP Levi Cooper MD LAB - CHEMISTR Y ORDERABLES [facility] [address] [place] [address], [facility] [phone] * (ABNORMAL) CBC W AUTO DIFFERENTIAL (12/04/2022 3:58 AM PRODUCTION GRIP) WBC 24.8(H) 3.5 - 10.5 10? 3 /uL 12/04/2022 4:[address] [facility] RBC 3.65(L) 3.80 - 5.20 10? 6 /uL 12/04/2022 4:[address] [facility] Hemoglobin 8.2(L) 12.0 - 15.6 g/dL 12/04/2022 4:[address] [facility] Hematocrit 28.0(L) 35.0 - 45.0 % 12/04/2022 4:[address] [facility] MCV 76.7(L) 80.7 - 98.3 fL 12/04/2022 4:[address] [facility] MCH 22.5(L) 26.7 - 34.0 pg 12/04/2022 4:[address] [facility] MCHC 29.3(L) 30.8 - 35.9 g/dL 12/04/2022 4:[address] [facility] RDW-SD 54.7(H) 36.0 - 50.0 fL 12/04/2022 4:[address] [facility] RDW-CV 19.9(H) 11.2 - 14.8 % 12/04/2022 4:[address] [facility] Platelet Count 446(H) 150 - 400 10? 3 /uL 12/04/2022 4:[address] [facility] MPV 8.7(L) 9.4 - 12.9 fL 12/04/2022 4:[address] [facility] nRBC Absolute 0.06(H) 0 10? 3 /uL 12/04/2022 4:[address] [facility] nRBC Auto 0.2(H) 0 /100 WBC 12/04/2022 4:[address] [facility] Neutrophils % 79.0(H) 35.0 - 70.0 % 12/04/2022 4:[address] [facility] Lymphocytes % 9.2(L) 20.0 - 43.0 % 12/04/2022 4:[address] [facility] Monocytes % 5.8 5.0 - 13.0 % 12/04/2022 4:[address] [facility] Eosinophils % 1.2 0.0 - 6.0 % 12/04/2022 4:[address] [facility] Basophil % 0.4 0.0 - 2.0 % 12/04/2022 4:[address] [facility] Neutrophils Absolute 19.59(H) 1.60 - 7.00 10? 3 /uL 12/04/2022 4:[address] [facility] Lymphocyte Absolute 2.29 1.10 - 3.90 10? 3 /uL 12/04/2022 4:[address] [facility] Monocytes Absolute 1.43(H) 0.26 - 1.07 10? 3 /uL 12/04/2022 4:[address] [facility] Eosinophils Absolute 0.29 0.00 - 0.47 10? 3 /uL 12/04/2022 4:[address] [facility] Basophils Absolute 0.10(H) 0.00 - 0.08 10? 3 /uL 12/04/2022 4:[address] [facility] Immature Granulocytes % 4.4(H) 0.0 - 1.0 % 12/04/2022 4:[address] [facility] Immature Granulocytes Absolute 1.09 12/04/2022 4:[address] [facility] Blood BLOOD SPECIMEN / Unknown Venipuncture / Unknown 12/04/2022 3:58 AM PRODUCTION GRIP 12/04/2022 4:03 AM PRODUCTION GRIP Levi Cooper MD LAB - HEMATOLO GY ORDERABLES Performing Organization Address City/[facility] Co de Phone Number [facility] [address] [place] [address], [facility] [phone] * (ABNORMAL) BASIC METABOLIC PANEL (CALCIUM TOTAL) (12/04/2022 3:58 AM PRODUCTION GRIP) BUN 35(H) 7 - 26 mg/dL 12/04/2022 4:[address] [facility] Creatinine 3.24(H) 0.56 - 0.96 mg/dL 12/04/2022 4:[address] [facility] Sodium 137 136 - 145 mmol/L 12/04/2022 4:[address] [facility] Potassium 3.6 3.5 - 4.5 mmol/L 12/04/2022 4:[address] [facility] Chloride 108(H) 98 - 107 mmol/L 12/04/2022 4:[address] [facility] CO2 17(L) 22 - 29 mmol/L 12/04/2022 4:[address] [facility] Glucose 210(H) 70 - 115 mg/dL 12/04/2022 4:[address] [facility] Calcium 7.3(L) 8.4 - 10.2 mg/dL 12/04/2022 4:[address] [facility] Anion Gap 16 8 - 18 12/04/2022 4:[address] [facility] BUN/Creatinine Ratio 11 7 - 23 12/04/2022 4:[address] [facility] Osmolality Calculated 298 270 - 300 mOsm/kg 12/04/2022 4:[address] [facility] eGFR by CKD-EPI 19(L) >=90 mL/min/1.7 3 m2 12/04/2022 4:[address] [facility] Blood BLOOD SPECIMEN / Unknown Venipuncture / Unknown 12/04/2022 3:58 AM PRODUCTION GRIP 12/04/2022 4:03 AM PRODUCTION GRIP Levi Cooper MD LAB - CHEMISTR Y ORDERABLES [facility] [address] [place] [address], [facility] [phone] * (ABNORMAL) GLUCOSE - POINT OF CARE (12/03/2022 11:18 PM PRODUCTION GRIP) Glucose WB/POC 229(H) 70 - 115 mg/dL 12/03/2022 11:22 PM [facility] Specimen Type Venous 12/03/2022 11:[address] [facility] Blood BLOOD SPECIMEN / Unknown 12/03/2022 11:18 PM PRODUCTION GRIP 12/03/2022 11:22 PM PRODUCTION GRIP Levi Cooper MD LAB - POINT OF CARE ORDERABLES Performing Organization Address [facility]/ZIP Co de Phone Number [facility] [address] [place] [phone], [facility] [phone] * (ABNORMAL) BASIC METABOLIC PANEL (CALCIUM TOTAL) (12/03/2022 11:13 PM PRODUCTION GRIP) Pathologist [facility] BUN 33(H) 7 - 26 mg/dL 12/03/2022 11:[address] [facility] Creatinine 3.18(H) 0.56 - 0.96 mg/dL 12/03/2022 11:[address] [facility] Sodium 134(L) 136 - 145 mmol/L 12/03/2022 11:[address] [facility] Potassium 3.6 3.5 - 4.5 mmol/L 12/03/2022 11:[address] [facility] Chloride 106 98 - 107 mmol/L 12/03/2022 11:[address] [facility] CO2 18(L) 22 - 29 mmol/L 12/03/2022 11:[address] [facility] Glucose 217(H) 70 - 115 mg/dL 12/03/2022 11:[address] [facility] Calcium 7.3(L) 8.4 - 10.2 mg/dL 12/03/2022 11:[address] [facility] Anion Gap 14 8 - 18 12/03/2022 11:[address] [facility] BUN/Creatinine Ratio 10 7 - 23 12/03/2022 11:[address] [facility] Osmolality Calculated 292 270 - 300 mOsm/kg 12/03/2022 11:[address] [facility] eGFR by CKD-EPI 19(L) >=90 mL/min/1.7 3 m2 12/03/2022 11:[address] [facility] Blood BLOOD SPECIMEN / Unknown Venipuncture / Unknown 12/03/2022 11:13 PM PRODUCTION GRIP 12/03/2022 11:25 PM PRODUCTION GRIP Levi Cooper MD LAB - CHEMISTR Y ORDERABLES [facility] [address] [place] [phone], [facility] [phone] * (ABNORMAL) DIFFERENTIAL MANUAL (12/03/2022 6:57 PM PRODUCTION GRIP) WBC (corrected for NRBC) 35.3 10? 3 /uL 12/03/2022 8:[address] [facility] Total Cell Count 100 12/03/19 23 8:[address] [facility] Neutrophils Absolute Manual 29.65(H) 1.60 - 7.00 10? 3 /uL 12/03/2022 8:[address] [facility] Comment:(BANDS+SEGS) x WBC = NEUT # (ANC) Lymphocyte Absolute Manual 3.53 1.10 - 3.90 10? 3 /uL 12/03/2022 8:[address] [facility] Monocytes Absolute Manual 2.12(H) 0.26 - 1.07 10? 3 /uL 12/03/2022 8:[address] [facility] Band % Manual 1 0 - 10 % 12/03/2022 8:[address] [facility] Neutrophil % Manual 83(H) 35 - 70 % 12/03/2022 8:[address] [facility] Lymphocyte % Manual 10(L) 20 - 43 % 12/03/2022 8:[address] [facility] Monocytes % Manual 6 5 - 13 % 12/03/2022 8:[address] [facility] nRBC Manual 1(H) 0 /100 WBC 12/03/2022 8:[address] [facility] Platelet Estimate Slightly Increased(A ) Adequate 12/03/2022 8:[address] [facility] Anisocytosis 1+(A) None 12/03/2022 8:[address] [facility] Microcytes 1+(A) None 12/03/2022 8:[address] [facility] Hypochromia Few(A) None 12/03/2022 8:[address] [facility] Polychromasia Rare(A) None 12/03/2022 8:[address] [facility] Target Cells 1+(A) None 12/03/2022 8:[address] [facility] Schistocytes Few(A) None 12/03/2022 8:[address] [facility] Ovalocytes Occasional( A) None 12/03/2022 8:[address] [facility] Blood BLOOD SPECIMEN / Unknown Venipuncture / Unknown 12/03/2022 6:57 PM PRODUCTION GRIP 12/03/2022 6:57 PM PRODUCTION GRIP Levi Cooper MD LAB - HEMATOLO GY ORDERABLES Performing Organization Address City/State/[facility] Co de Phone Number [facility] [address] [place] [address] [phone] * (ABNORMAL) CBC W AUTO DIFFERENTIAL (12/03/2022 6:57 PM PRODUCTION GRIP) WBC 35.3(H) 3.5 - 10.5 10? 3 /uL 12/03/2022 7:[address] [facility] RBC 3.58(L) 3.80 - 5.20 10? 6 /uL 12/03/2022 7:[address] [facility] Hemoglobin 8.2(L) 12.0 - 15.6 g/dL 12/03/2022 7:[address] [facility] Hematocrit 26.0(L) 35.0 - 45.0 % 12/03/2022 7:[address] [facility] MCV 72.6(L) 80.7 - 98.3 fL 12/03/2022 7:[address] [facility] MCH 22.9(L) 26.7 - 34.0 pg 12/03/2022 7:[address] [facility] MCHC 31.5 30.8 - 35.9 g/dL 12/03/2022 7:[address] [facility] RDW-SD 49.9 36.0 - 50.0 fL 12/03/2022 7:[address] [facility] RDW-CV 19.0(H) 11.2 - 14.8 % 12/03/2022 7:[address] [facility] Platelet Count 474(H) 150 - 400 10? 3 /uL 12/03/2022 7:[address] [facility] MPV 9.2(L) 9.4 - 12.9 fL 12/03/2022 7:[address] [facility] nRBC Absolute 0.04(H) 0 10? 3 /uL 12/03/2022 7:[address] [facility] nRBC Auto 0.1(H) 0 /100 WBC 12/03/2022 7:[address] [facility] Blood BLOOD SPECIMEN / Unknown Venipuncture / Unknown 12/03/2022 6:57 PM PRODUCTION GRIP 12/03/2022 6:57 PM PRODUCTION GRIP Levi Cooper MD LAB - HEMATOLO GY ORDERABLES Performing Organization Address City/[facility]/ZIP Co de Phone Number [address] [address], [facility] [phone] * LACTIC ACID BLOOD (12/03/2022 6:57 PM PRODUCTION GRIP) Lactic Acid-Stat 0.7 <=2.0 mmol/L 12/03/2022 7:[address] [facility] Blood BLOOD SPECIMEN / Unknown Venipuncture / Unknown 12/03/2022 6:57 PM [facility] GRIP 12/03/2022 6:58 PM PRODUCTION GRIP Levi Cooper MD LAB - CHEMISTR Y ORDERABLES [address] [address], [place] [phone] * VANCOMYCIN LEVEL RANDOM (12/03/2022 6:57 PM PRODUCTION GRIP) Vancomycin Random 20.8 Therapeutic Ranges not established for random specimens ug/mL 12/03/2022 7:[address] [facility] Blood BLOOD SPECIMEN / Unknown Venipuncture / Unknown 12/03/2022 6:57 PM PRODUCTION GRIP 12/03/2022 6:57 PM PRODUCTION GRIP Narrative [facility] - 12/03/2022 7:25 PM PRODUCTION GRIP See institution protocol. Himanshu Espino MD LAB - CHEMISTRY DIVINA OLVERA [facility] [address] [place] [id number], [facility] [phone] * (ABNORMAL) BLOOD GASES SUZANNE + COOX PANEL (12/03/2022 6:56 PM PRODUCTION GRIP) pH Venous 7.28(L) 7.32 - 7.42 pH 12/03/2022 6:[address] [facility] pO2 Venous 88(H) 35 - 40 mmHg 12/03/2022 6:[address] [facility] pCO2 Venous 44 40 - 50 mmHg 12/03/2022 6:[address] [facility] HCO3 Venous 20.7 20 - 30 mmol/L 12/03/2022 6:[address] [facility] Base Excess Venous -5.7(L) -2.0 - 2.0 mmol/L 12/03/2022 6:[address] [facility] Oxyhemoglobin Venous 95.0 % 11/05 6:[address] [facility] Deoxyhemoglobin (HHB) Venous % 2.5 % 12/03/2022 6:[address] [facility] Methemoglobin <0.8 0.0 - 2.0 % 12/03/2022 6:[address] [facility] Carboxyhemoglobin 2.0 0.0 - 2.0 % 2022 6:[address] [facility] O2 Content Venous 11.8 Interpret within clinical context ml/dL 12/03/2022 6:[address] [facility] Hemoglobin by COOX 8.7(L) 12.0 - 15.6 g/dL 12/03/2022 6:[address] [facility] O2 Saturation Venous 97 >=70 % 11/05 6:[address] [facility] FI O2 Mixed Venous 28.0 % 2022 6:[address] [facility] Blood BLOOD SPECIMEN / Unknown Venipuncture / Unknown 12/03/2022 6:56 PM PRODUCTION GRIP 12/03/2022 6:56 PM PRODUCTION GRIP Narrative [facility] - 12/03/2022 6:59 PM PRODUCTION GRIP Carboxyhemoglobin Normal Concentration: Non-smokers: 0-2%; Smokers: 0-9%; Toxic: >20% Levi Cooper MD LAB - BLOOD GA SES ORDERABLES Performing Organization Address City/[facility]/ZIP Co de Phone Number [address] [address], [place] [phone] * (ABNORMAL) GLUCOSE - POINT OF CARE (12/03/2022 6:22 PM PRODUCTION GRIP) [facility] Glucose WB/POC 197(H) 70 - 115 mg/dL 12/03/2022 6:[address] [facility] Specimen Type Cap Fingerstick 2022 6:[address] [facility] Blood BLOOD SPECIMEN / Unknown 12/03/2022 6:22 PM PRODUCTION GRIP 12/03/2022 6:26 PM PRODUCTION GRIP Levi Cooper MD LAB - POINT OF CARE ORDERABLES [facility] [address] [place] [id number], [place] [phone] * (ABNORMAL) BASIC METABOLIC PANEL (CALCIUM TOTAL) (12/03/2022 5:07 PM PRODUCTION GRIP) BUN 31(H) 7 - 26 mg/dL 12/03/2022 5:[address] [facility] Creatinine 3.14(H) 0.56 - 0.96 mg/dL 12/03/2022 5:[address] [facility] Sodium 137 136 - 145 mmol/L 12/03/2022 5:[address] [facility] Potassium 3.6 3.5 - 4.5 mmol/L 12/03/2022 5:[address] [facility] Chloride 107 98 - 107 mmol/L 12/03/2022 5:[address] [facility] CO2 15(L) 22 - 29 mmol/L 12/03/2022 5:[address] [facility] Glucose 166(H) 70 - 115 mg/dL 12/03/2022 5:[address] [facility] Calcium 7.5(L) 8.4 - 10.2 mg/dL 12/03/2022 5:[address] [facility] Anion Gap 19(H) 8 - 18 12/03/2022 5:[address] [facility] BUN/Creatinine Ratio 10 7 - 23 12/03/2022 5:[address] [facility] Osmolality Calculated 294 270 - 300 mOsm/kg 12/03/2022 5:[address] [facility] eGFR by CKD-EPI 20(L) >=90 mL/min/1.7 3 m2 12/03/2022 5:[address] [facility] Blood BLOOD SPECIMEN / Unknown Venipuncture / Unknown 12/03/2022 5:07 PM PRODUCTION GRIP 12/03/2022 5:17 PM PRODUCTION GRIP Levi Cooper MD LAB - CHEMISTR Y ORDERABLES [facility] [address] [place] [address], [facility] [phone] * UREA NITROGEN URINE RANDOM (12/03/2022 4:59 PM PRODUCTION GRIP) Urea Nitrogen Random Urine 397 Not Established mg/dL 12/03/2022 5:[address] [facility] Urine URINE SPECIMEN OBTAINED BY CLEAN CATCH PROCEDURE / Unknown Collection / Unknown 12/03/2022 4:59 PM PRODUCTION [facility]IP 12/03/2022 5:14 PM PRODUCTION GRIP Graeme Rodgers MD LAB - URINE CHEMIS TRY ORDERABLES [facility] [address] [place] [address], [facility] [phone] * (ABNORMAL) URINALYSIS REFLEX TO MICROSCOPIC NO CULTURE (12/03/2022 4:59 PM PRODUCTION GRIP) Color UA Lesly(A) Straw, Yellow 12/03/2022 5:[address] [facility] Clarity UA Slt Cloudy(A) Clear 12/03/2022 5:[address] [facility] Specific [place] UA 1.025 1.005 - 1.030 12/03/2022 5:[address] [facility] pH UA 5.0 5.0 - 8.0 pH 12/03/2022 5:[address] [facility] Protein UA 3+(A) Negative 12/03/2022 5:[address] [facility] Glucose UA Negative Negative 12/03/2022 5:[address] [facility] Ketone UA Negative Negative 12/03/2022 5:[address] [facility] Bilirubin UA 2+(A) Negative 12/03/2022 5:[address] [facility] Comment:Urine Bilirubin resu lt confirmed by manual Ictotest. Blood UA 2+(A) Negative 12/03/2022 5:[address] [facility] Nitrite UA Negative Negative 12/03/2022 5:[address] [facility] Leukocyte Esterase Negative Negative 12/03/2022 5:[address] [facility] Urobilinogen UA Negative Negative mg/dL 12/03/2022 5:[address] [facility] RBC UA 11-20(A) None Seen, 0-2, 3-5 /HPF 12/03/2022 5:[address] [facility] WBC UA 6-10(A) None Seen, 0-5 /HPF 12/03/2022 5:[address] [facility] Bacteria UA Trace(A) None /HPF 12/03/2022 5:[address] [facility] Squamous Epithelial Cells UA 3-5 None Seen, 0-2, 3-5 /HPF 12/03/2022 5:[address] [facility] Mucus UA 1+ /LPF 12/03/2022 5:[address] [facility] Hyaline Casts UA 6-10(A) None Seen, 0-2 /LPF 12/03/2022 5:57 PM PRODUCTION GRIP [facility] Granular Casts UA 3-5(A) None Seen /LPF 12/03/2022 5:[address] [facility] Amorphous Crystals Rare(A) None /HPF 12/03/2022 5:[address] [facility] Urine URINE SPECIMEN OBTAINED BY CLEAN CATCH PROCEDURE / Unknown Collection / Unknown 12/03/2022 4:59 PM [facility]ODUCTION [facility]IP 12/03/2022 5:14 PM PRODUCTION GRIP Narrative [facility] - 12/03/2022 5:57 PM PRODUCTION GRIP Graeme Rodgers MD LAB - URINALYSIS O RDERABLES [address] [address], [place] [phone] * CREATININE URINE RANDOM (12/03/2022 4:59 PM PRODUCTION GRIP) Creatinine Urine 227 Not Established mg/dL 12/03/2022 6:[address] [facility] Urine URINE SPECIMEN OBTAINED BY CLEAN CATCH PROCEDURE / Unknown Collection / Unknown 12/03/2022 4:59 PM PRODUCTION [facility]IP 12/03/2022 5:14 PM PRODUCTION GRIP Himanshu Espino MD LAB - URINE CHEMISTR Y ORDERABLES Performing Organization Address City/[facility]/ZIP Co de Phone Number [address] [address], [place] [phone] * LYTES (NA K CL) URINE RANDOM PANEL (12/03/2022 4:59 PM PRODUCTION GRIP) Sodium Urine <20 Not Established mmol/L 12/03/2022 6:[address] [facility] Potassium Urine 26.9 Not Established mmol/L 12/03/2022 6:[address] [facility] Chloride Random Urine <20 Not Established mmol/L 12/03/2022 6:[address] [facility] Urine URINE SPECIMEN OBTAINED BY CLEAN CATCH PROCEDURE / Unknown Collection / Unknown 12/03/2022 4:59 PM PRODUCTION [facility]IP 12/03/2022 5:14 PM PRODUCTION GRIP Himanshu Espino MD LAB - URINE CHEMISTR Y ORDERABLES [address] [address], [place] [phone] * (ABNORMAL) GLUCOSE - POINT OF CARE (12/03/2022 1:29 PM PRODUCTION GRIP) Glucose WB/POC 156(H) 70 - 115 mg/dL 12/03/2022 1:34 PM [facility]ODUCTION GRIP [facility] Specimen Type Cap Fingerstick 2022 1:34 PM PRODUCTION GRIP [facility] Blood BLOOD SPECIMEN / Unknown 12/03/2022 1:29 PM [facility]ODUCTION [facility]IP 12/03/2022 1:34 PM PRODUCTION GRIP Levi Cooper MD LAB - POINT OF CARE ORDERABLES Performing Organization Address City/[facility]/ZIP Co de Phone Number [address] [address], [place] [phone] * (ABNORMAL) HEMOGLOBIN (12/03/2022 9:43 AM PRODUCTION GRIP) Hemoglobin 8.2(L) 12.0 - 15.6 g/dL 12/03/2022 9:58 AM PRODUCTION GRIP [facility] Blood BLOOD SPECIMEN / Unknown Venipuncture / Unknown 12/03/2022 9:43 AM PRODUCTION GRIP 12/03/2022 9:47 AM PRODUCTION GRIP Tommie Echevarria MD LAB - HEMATOLOGY ORD ERABLES Performing Organization Address [facility]/ZIP Co de Phone Number [address] [address], [place] [phone] * (ABNORMAL) GLUCOSE - POINT OF CARE (12/03/2022 7:40 AM PRODUCTION GRIP) Glucose WB/POC 130(H) 70 - 115 mg/dL 12/03/2022 7:41 AM PRODUCTION GRIP [facility] Specimen Type Cap Fingerstick 2022 7:41 AM PRODUCTION GRIP [facility] Blood BLOOD SPECIMEN / Unknown 12/03/2022 7:40 AM PRODUCTION GRIP 12/03/2022 7:41 AM PRODUCTION GRIP Tommie Echevarria MD LAB - POINT OF CARE ORDERABLES [facility] [address] [place] [address], [facility] [phone] * PREPARE (CROSSMATCH) RBC UNIT(S), 1 Units (12/03/2022 5:34 AM PRODUCTION GRIP) Unit Description AS1 LR PRBC [facility] LAB Unit ABO A [facility] Unit Rh POS [facility] Product Number R44 [facility] B LOOD [facility] LAB Unit Donor # [id number] [facility] Unit Status transfused [facility] BLO OD BANK LAB Product Code [id number] [facility] BLO OD [facility]ANK LAB Blood Type Barcode 6200 [facility] Expiration Date [id number] S BLOOD BANK LAB Blood Bank BLOOD SPECIMEN / Unknown 12/03/2022 2:48 AM PRODUCTION GRIP Tommie Echevarria MD LAB - BLOOD BANK ORD ERABLES Performing Organization Address City/[facility]/ZIP Co de Phone Number [facility] [address] [place] [phone], [facility] [phone] * BLOOD TYPE VERIFICATION (12/03/2022 4:10 AM PRODUCTION GRIP) ABO Rh A POS 12/03/2022 4:4 9 AM PRODUCTION GRIP [facility] LAB Blood Bank BLOOD SPECIMEN / Unknown Venipuncture / Unknown 12/03/2022 4:10 AM PRODUCTION GRIP 12/03/2022 4:18 AM PRODUCTION GRIP Gail Montero MD LAB - BLOOD BANK ORD ERABLES [facility] [address] [place] [address], [place] [phone] * EKG 12-LEAD (12/03/2022 3:00 AM PRODUCTION GRIP) Ventricular Rate 77 BPM [facility] MUSE Atrial Rate 77 BPM [facility] MUSE P-R Interval 154 ms [facility] MUSE QRS Duration ms 88 ms [facility] MUSE Q-T Interval ms 416 ms [facility] MUSE QTC Calculation (Bezet) 470 ms [facility] MUSE Calculated P [place] 44 degrees [facility] MUSE Calculated R [place] 14 degrees [facility] MUSE Calculated T [place] 23 degrees [facility] MUSE Interpretation EKG NORMAL SINUS RHYTHM NORMAL ECG WHEN COMPARED WITH ECG OF 21-aug-2022 NO SIGNIFICANT CHANGE WAS FOUND Confirmed by HIARL HIGGINS MD ([id number]) on 12/09/2022 1:25:51 PM [facility] MUSE 12/03/2022 3:00 AM PRODUCTION GRIP 12/09/2022 1:25 PM PRODUCTION GRIP Trisha Rodríguez PA-C ECG ORDERABLES [facility] MUSE * (ABNORMAL) DIFFERENTIAL MANUAL (12/03/2022 2:42 AM PRODUCTION GRIP) WBC (corrected for NRBC) 37.1 10? 3 /uL 12/03/2022 3:[address] [facility] Total Cell Count 100 12/03/19 3:[address] [facility] Neutrophils Absolute Manual 34.50(H) 1.60 - 7.00 10? 3 /uL 12/03/2022 3:[address] [facility] Comment:(BANDS+SEGS) x WBC = NEUT # (ANC) Lymphocyte Absolute Manual 1.48 1.10 - 3.90 10? 3 /uL 12/03/2022 3:[address] [facility] Monocytes Absolute Manual 1.11(H) 0.26 - 1.07 10? 3 /uL 12/03/2022 3:[address] [facility] Band % Manual 2 0 - 10 % 12/03/2022 3:[address] [facility] Neutrophil % Manual 91(H) 35 - 70 % 12/03/2022 3:[address] [facility] Lymphocyte % Manual 4(L) 20 - 43 % 12/03/2022 3:[address] [facility] Monocytes % Manual 3(L) 5 - 13 % 12/03/2022 3:[address] [facility] Platelet Estimate Increased (A) Adequate 12/03/2022 3:[address] [facility] Anisocytosis 1+(A) None 12/03/2022 3:[address] [facility] Microcytes 2+(A) None 12/03/2022 3:[address] [facility] Target Cells 2+(A) None 12/03/2022 3:[address] [facility] Carli Cells 1+(A) None 12/03/2022 3:[address] [facility] Blood BLOOD SPECIMEN / Unknown Venipuncture / Unknown 12/03/2022 2:42 AM PRODUCTION GRIP 12/03/2022 2:48 AM PRODUCTION GRIP Graeme Rodgers MD LAB - HEMATOLOGY O RDERABLES Performing Organization Address City/[facility]/ZIP Co de Phone Number [address] [address], [facility] [phone] * PHOSPHORUS BLOOD (12/03/2022 2:42 AM PRODUCTION GRIP) Phosphorus 4.4 2.9 - 5.1 mg/dL 12/03/2022 3:[address] [facility] Blood BLOOD SPECIMEN / Unknown Venipuncture / Unknown 12/03/2022 2:42 AM PRODUCTION GRIP 12/03/2022 2:48 AM PRODUCTION GRIP Graeme Rodgers MD LAB - CHEMISTRY OR DERABLES [address] [address], [facility] [phone] * MAGNESIUM BLOOD (12/03/2022 2:42 AM PRODUCTION GRIP) Magnesium 2.2 1.6 - 2.6 mg/dL 12/03/2022 3:[address] [facility] Blood BLOOD SPECIMEN / Unknown Venipuncture / Unknown 12/03/2022 2:42 AM PRODUCTION GRIP 12/03/2022 2:48 AM PRODUCTION GRIP Narrative Authorizing Provider Result Alexis Rodgers MD LAB - CHEMISTRY OR DERABLES [facility] [address] [place] [address], [facility] [phone] * (ABNORMAL) BASIC METABOLIC PANEL (CALCIUM TOTAL) (12/03/2022 2:42 AM PRODUCTION GRIP) BUN 30(H) 7 - 26 mg/dL 12/03/2022 3:[address] [facility] Creatinine 2.91(H) 0.56 - 0.96 mg/dL 12/03/2022 3:[address] [facility] Sodium 134(L) 136 - 145 mmol/L 12/03/2022 3:[address] [facility] Potassium 3.5 3.5 - 4.5 mmol/L 12/03/2022 3:[address] [facility] Chloride 106 98 - 107 mmol/L 12/03/2022 3:[address] [facility] CO2 18(L) 22 - 29 mmol/L 12/03/2022 3:[address] [facility] Glucose 114 70 - 115 mg/dL 12/03/2022 3:[address] [facility] Calcium 7.3(L) 8.4 - 10.2 mg/dL 12/03/2022 3:[address] [facility] Anion Gap 14 8 - 18 12/03/2022 3:[address] [facility] BUN/Creatinine Ratio 10 7 - 23 12/03/2022 3:[address] [facility] Osmolality Calculated 285 270 - 300 mOsm/kg 12/03/2022 3:[address] [facility] eGFR by CKD-EPI 22(L) >=90 mL/min/1.7 3 m2 12/03/2022 3:[address] [facility] Blood BLOOD SPECIMEN / Unknown Venipuncture / Unknown 12/03/2022 2:42 AM PRODUCTION GRIP 12/03/2022 2:48 AM PRODUCTION GRIP Narrative Authorizing Provider Result Alexis Rodgers MD LAB - CHEMISTRY OR DERABLES [facility] [address] [place] [address], [facility] [phone] * (ABNORMAL) CBC W AUTO DIFFERENTIAL (12/03/2022 2:42 AM [facility] WBC 37.1(H) 3.5 - 10.5 10? 3 /uL 12/03/2022 3:[address] [facility] RBC 3.08(L) 3.80 - 5.20 10? 6 /uL 12/03/2022 3:[address] [facility] Hemoglobin 6.8(L) 12.0 - 15.6 g/dL 12/03/2022 3:[address] [facility] Hematocrit 22.3(L) 35.0 - 45.0 % 12/03/2022 3:[address] [facility] MCV 72.4(L) 80.7 - 98.3 fL 12/03/2022 3:[address] [facility] MCH 22.1(L) 26.7 - 34.0 pg 12/03/2022 3:[address] [facility] MCHC 30.5(L) 30.8 - 35.9 g/dL 12/03/2022 3:[address] [facility] RDW-SD 50.5(H) 36.0 - 50.0 fL 12/03/2022 3:[address] [facility] RDW-CV 19.5(H) 11.2 - 14.8 % 12/03/2022 3:[address] [facility] Platelet Count 445(H) 150 - 400 10? 3 /uL 12/03/2022 3:[address] [facility] MPV 9.2(L) 9.4 - 12.9 fL 12/03/2022 3:[address] [facility] nRBC Absolute 0.03(H) 0 10? 3 /uL 12/03/2022 3:[address] [facility] nRBC Auto 0.1(H) 0 /100 WBC 12/03/2022 3:[address] [facility] Blood BLOOD SPECIMEN / Unknown Venipuncture / Unknown 12/03/2022 2:42 AM PRODUCTION GRIP 12/03/2022 2:48 AM PRODUCTION GRIP Graeme Rodgers MD LAB - HEMATOLOGY O RDERABLES Performing Organization Address City/[facility]/ZIP Co de Phone Number [address] [address], [place] [phone] * TYPE + SCREEN PANEL (12/03/2022 2:42 AM PRODUCTION GRIP) Antibody Screen NEG 3:33 AM PRODUCTION GRIP [facility]OD [facility] LAB ABO Rh A POS 12/03/2022 3:33 AM PRODUCTION GRIP [facility] LAB Blood Bank BLOOD SPECIMEN / Unknown Venipuncture / Unknown 12/03/2022 2:42 AM PRODUCTION GRIP 12/03/2022 2:48 AM PRODUCTION GRIP Himanshu Espino MD LAB - BLOOD BANK ORD ERABLES Performing Organization Address [facility] Co de Phone Number [facility] [address] [place] [address], [place] [phone] * (ABNORMAL) GLUCOSE - POINT OF CARE (12/03/2022 1:07 AM PRODUCTION GRIP) Glucose WB/POC 132(H) 70 - 115 mg/dL 12/03/2022 1:[address] [facility] Specimen Type Cap Fingerstick 2022 1:12 AM PRODUCTION GRIP [facility] Blood BLOOD SPECIMEN / Unknown 12/03/2022 1:07 AM PRODUCTION GRIP 12/03/2022 1:12 AM PRODUCTION GRIP Graeme Rodgers MD LAB - POINT OF CAR E ORDERABLES Performing Organization Address City/[facility]/ZIP Co de Phone Number [address] [address], [place] [phone] * (ABNORMAL) GLUCOSE - POINT OF CARE (12/03/2022 12:30 AM PRODUCTION GRIP) Glucose WB/POC 123(H) 70 - 115 mg/dL 12/03/2022 10:47 AM PRODUCTION GRIP [facility] Specimen Type Cap Fingerstick 2022 10:47 AM PRODUCTION GRIP [facility] Blood BLOOD SPECIMEN / Unknown 12/03/2022 12:30 AM PRODUCTION GRIP 12/03/2022 10:47 AM PRODUCTION GRIP Graeme Rodgers MD LAB - POINT OF CAR E ORDERABLES [facility] [address] [place] [address], [facility] [phone] * (ABNORMAL) CULTURE FLUID+GRAM STAIN (12/03/2022 12:27 AM PRODUCTION GRIP) Culture Heavy Proteus mirabilis(AA) CHARLES 12/06/2022 5:43 AM PRODUCTION GRIP [facility] Culture Moderate Streptococcus agalactiae (Group B)(AA) CHARLES 12/06/2022 5:43 AM PRODUCTION GRIP [facility] Culture Moderate normal skin nish CHARLES 12/06/2022 5:43 AM PRODUCTION GRIP [facility] Gram Stain Light Gram-positive bacilli(AA) 12/06/2022 5:43 AM PRODUCTION GRIP [facility] Gram Stain Rare Gram-positive cocci(AA) 12/06/2022 5:43 AM PRODUCTION GRIP [facility] Gram Stain Rare Red blood cells(AA) 12/06/2022 5:43 AM [facility] Gram Stain No polymorphonuclear cells(AA) 12/06/2022 5:43 AM [facility] Fluid BODY FLUID SPECIMEN / Unknown Collection / Unknown 12/03/2022 12:27 AM PRODUCTION GRIP 12/03/2022 12:38 AM PRODUCTION GRIP Narrative [facility] - 12/06/2022 5:43 AM PRODUCTION GRIP Susceptibility testing of penicillin, other beta-lactam antibiotics, and vancomycin is not necessary for beta-hemolytic streptococci groups A,B,C and G because resistant strains have not been recognized. Organism Antibiotic Method Susceptibility Proteus mirabilis Amikacin CHARLES <=2 ug/mL: Susceptible Proteus mirabilis Ampicillin CHARLES <=2 ug/mL: Susceptible Proteus mirabilis Ampicillin-sulbactam CHARLES <=2 ug/mL: Susceptible Proteus mirabilis Cefazolin CHARLES <=4 ug/mL: See Comment* Proteus mirabilis Cefepime CHARLES <=1 ug/mL: Susceptible Proteus mirabilis Ceftriaxone CHARLES <=1 ug/mL: Susceptible Proteus mirabilis Ciprofloxacin CHARLES <=0.25 ug/mL: Susceptible Proteus mirabilis Gentamicin CHARLES <=1 ug/mL: Susceptible Proteus mirabilis Meropenem CHARLES <=0.25 ug/mL: Susceptible Proteus mirabilis Piperacillin-tazobactam CHARLES <=4 ug/mL: Susceptible Proteus mirabilis Tobramycin CHARLES <=1 ug/mL: Susceptible Proteus mirabilis Trimethoprim-sulfame thoxa zole CHARLES <=20 ug/mL: Susceptible Comment:*Cefazolin CHARLES of </ =4 cannot distinguish between susceptible or intermediate for systemic breakpoints. If further defined interpretation is needed, call Microbiology and a disk diffusion test will be performed. Graeme Rodgers MD LAB - MICROBIOLOGY ORDERABLES Performing Organization Address [facility] de Phone Number [facility] [address] [facility] [place] [address] [phone] * CULTURE ANAEROBE (12/03/2022 12:27 AM PRODUCTION GRIP) Culture No anaerobic organisms isolated CHARLES 12/08/2022 8:12 AM PRODUCTION GRIP [facility] Fluid BODY FLUID SPECIMEN / Unknown Collection / Unknown 12/03/2022 12:27 AM PRODUCTION GRIP 12/03/2022 12:38 AM PRODUCTION GRIP Graeme Rodgers MD LAB - MICROBIOLOGY ORDERABLES Performing Organization Address [facility] de Phone Number [facility]CRO[facility] [address] [place] [address], [facility] [phone] * PATHOLOGY TISSUE (12/03/2022 12:16 AM PRODUCTION GRIP) Case Report Surgical Pathology Report ? Case: [id number] ? Authorizing Provider: ??Graeme Rodgers MD ?Collected: ? 12/03/2022 12:16 AM ? Ordering Location: ? [facility] ?Received: ?12/03/2022 07:40 AM ? Pathologist: ? Graeme Alexandre MD ? Specimen: ?Foot, Left, left foot ? 12/06/2022 12:07 PM [facility] Final Diagnosis Foot, left, disarticulation (A): - Ischemic necrosis with marked acute inflammation - Acute osteomyelitis - Surgical margins viable 12/06/2022 12:07 PM [facility] LAB Microscopic Description and Comment Microscopic examination substantiates the final diagnosis. 12/06/2022 12:07 PM [facility] Clinical History The patient is a 32-year-old woman with poorly controlled diabetes, presented with a gangrenous necrotic left foot. Operative procedure: Left ankle disarticulation 12/06/2022 12:07 PM [facility] LAB Gross Description The requisition and specimen container(s) are identified with the patient's name, Leeroy Canales. Received in formalin, specimen A , is a 25.5 x 11.5 x 11.0 cm foot that has been disarticulated from the talus joint with 5 attached toes and thickened nails. There is a 11.0 x 10.0 cm black-lange necrotic ulcer with associated skin slippage on the plantar aspect of the foot extending toward the dorsal aspect up to 4.0 cm, 6.5 cm from the closest resection margin. The soft tissue and bone underlying the ulcerated area is necrotic and softened. The soft tissue resection margin is viable grossly. Proofer sections are submitted as follows: [id number] ulcer, A3-soft tissue resection margin, A4-bone under ulcer following decalcification./DS 12/06/2022 12:07 PM [facility] Disclaimer The performance characteristics of all immunohistochemical and indirect immunofluorescence stains (if any) cited in this report were determined by the Histopathology Laboratory of [facility]. Some of these tests were developed [...] and interpreted by the attending (teaching) pathologist. 12/06/2022 12:07 PM [facility] Embedded Images 12/06/2022 12:07 PM [facility] Biopsy, Excision (Foot, Left) 12/03/2022 12:16 AM PRODUCTION GRIP 12/03/2022 7:40 AM PRODUCTION GRIP Comment:Pre-op diagnosis: Gangrene (CMS/HCC) [I96] LEFT FOOT TAKEN TO MORGUE Graeme Rodgers MD LAB - PATHOLOGY/CY TOLOGY ORDERABLES Performing Organization Address City/State/[facility] Co de Phone Number [facility] [address] [phone] * (ABNORMAL) GLUCOSE - POINT OF CARE (12/02/2022 11:10 PM PRODUCTION GRIP) Glucose WB/POC 126(H) 70 - 115 mg/dL 12/03/2022 10:47 AM [facility] Specimen Type Cap Fingerstick 2022 10:[address] [facility] Blood BLOOD SPECIMEN / Unknown 12/02/2022 11:10 PM PRODUCTION GRIP 12/03/2022 10:47 AM PRODUCTION GRIP Himanshu Espino MD LAB - POINT OF CARE ORDERABLES Performing Organization Address [facility]/ZIP Co de Phone Number [address] [address], [facility] [phone] * (ABNORMAL) C-REACTIVE PROTEIN (12/02/2022 8:41 PM PRODUCTION GRIP) C-Reactive Protein 25.2(H) <=0.5 mg/dL 12/02/2022 9:[address] [facility] Blood BLOOD SPECIMEN / Unknown Venipuncture / Unknown 12/02/2022 8:41 PM PRODUCTION GRIP 12/02/2022 8:44 PM PRODUCTION GRIP Himanshu Espino MD LAB - CHEMISTRY ORDE RABLES Performing Organization Address [facility] Co de Phone Number [address] [address], [facility] [phone] * (ABNORMAL) LIPID PROFILE (12/02/2022 8:33 PM PRODUCTION GRIP) Cholesterol Total 111 <200 mg/dL 12/02/2022 8:[address] [facility] HDL 8(L) >40 mg/dL 12/02/2022 8:[address] [facility] Comment: ATP III Classification of HDL Cholesterol: ? <40 mg/dL: ??Considered a major risk factor. ? >60 mg/dL: ??Considered a negative risk factor. ? LDL Calculated 74 <100 mg/dL 12/02/2022 8:[address] [facility] Comment: ATP III Classification of LDL Cholesterol: ?<100 mg/dL: ??Optimal ? 100 - 129 mg/dL: ??Near Optimal/Above Optimal ? 130 - 159 mg/dL: ??Borderline High ? 160 - 189 mg/dL: ??High ?>190 mg/dL: ??Very High ? Triglycerides 143 <150 mg/dL 12/02/2022 8:[address] [facility] Comment: ATP III Classification of Triglycerides: ?<150 mg/dL: ??Normal ? 150 - 199 mg/dL: ??Borderline High ? 200 - 400 mg/dL: ??High ?>500 mg/dL: ??Very High Blood BLOOD SPECIMEN / Unknown Venipuncture / Unknown 12/02/2022 8:33 PM PRODUCTION GRIP 12/02/2022 8:42 PM PRODUCTION GRIP Himanshu Espino MD LAB - CHEMISTRY DIVINA OLVERA Performing Organization Address [facility] de Phone Number [facility] [address] [place] [address], [facility] [phone] * (ABNORMAL) HEMOGLOBIN A1C (12/02/2022 8:32 PM PRODUCTION GRIP) Hemoglobin A1c 6.7(H) <=5.6 % 12/03/2022 10:[address] [facility] Estimated Average Glucose 146 mg/dL 12/03/2022 10:[address] [facility] Comment: HbA1c Interpretation: Normal : < 5.7% Pre-diabetes: 5.7-6.4% Diabetes: Equal to or greater than 6.5% Test results diagnostic of diabetes should be repeated for confirmation. Treatment target values recommended by ADA and other clinical organizations should be used to evaluate metabolic control in patients. Reference: [place] [employer], Standards of Care in Diabetes -2020 In patients 70 years and older consider HbA1c target range of 7.0-7.5% (Reference: Anthoyn Dillard et al. JAMDA. 2012) The Sebia assay for the measurement of HbA1c is a National Glycohemoglobin Standardization Program (NGSP) certified method. Blood BLOOD SPECIMEN WITH EDTA / Unknown Venipuncture / Unknown 12/02/2022 8:32 PM PRODUCTION GRIP 12/02/2022 8:40 PM PRODUCTION GRIP Himanshu Espino MD LAB - CHEMISTRY DIVINA OLVERA [facility] [address] [place] [address], [facility] [phone] * (ABNORMAL) CULTURE BLOOD (12/02/2022 8:32 PM PRODUCTION GRIP) Culture Growth of Schaalia turicensis(A A) CHARLES 12/07/2022 6:11 PM PRODUCTION GRIP [facility] Gram Stain Gram-positiv e bacilli(AA) 12/07/2022 6:11 PM PRODUCTION GRIP [facility] Blood PERIPHERAL BLOOD / Unknown Venipuncture / Unknown 12/02/2022 8:32 PM PRODUCTION GRIP 12/02/2022 8:36 PM PRODUCTION GRIP Narrative [facility] - 12/07/2022 6:11 PM PRODUCTION GRIP Positive at 34 hrs Trisha Rodríguez PA-C LAB - MICROBIOLOGY O RDKAUSHAL Performing Organization Address [facility] Co de Phone Number [facility] [address] [place] [address], [facility] [phone] * (ABNORMAL) CULTURE BLOOD (12/02/2022 8:00 PM PRODUCTION GRIP) Culture Growth of Schaalia turicensis(A A) CHARLES 12/09/2022 6:40 PM PRODUCTION GRIP [facility] Gram Stain Gram-positiv e bacilli(AA) CHARLES 12/09/2022 6:40 PM PRODUCTION GRIP [facility] Gram Stain Gram-positiv e cocci(AA) 12/09/2022 6:40 PM PRODUCTION GRIP [facility] Blood PERIPHERAL BLOOD / Unknown Venipuncture / Unknown 12/02/2022 8:00 PM PRODUCTION GRIP 12/02/2022 8:36 PM PRODUCTION GRIP Narrative [facility] - 12/09/2022 6:40 PM PRODUCTION GRIP Positive at 57 hours 33 minutes Trisha Rodríguez PA-C LAB - MICROBIOLOGY O RDERAALONZO Performing Organization Address [facility]/ZIP Co de Phone Number [facility] [address] [place] [address], [facility] [phone] * LACTIC ACID BLOOD REFLEX TO REPEAT (12/02/2022 8:00 PM PRODUCTION GRIP) Lactic Acid-Stat 0.9 <=2.0 mmol/L 12/02/2022 8:59 PM PRODUCTION GRIP [facility] Blood BLOOD SPECIMEN / Unknown Venipuncture / Unknown 12/02/2022 8:00 PM PRODUCTION GRIP 12/02/2022 8:40 PM PRODUCTION GRIP Trisha Rodríguez PA-C LAB - CHEMISTRY DIVINA OLVERA [facility] [address] [place] [address], [facility] [phone] * XR FOOT LEFT 3VW OR MORE (12/02/2022 7:56 PM PRODUCTION GRIP) Anatomical Region Laterality Modality Ankle / Foot Radiographic Nissa ging 12/02/2022 7:40 PM PRODUCTION GRIP Narrative 12/03/2022 2:25 PM PRODUCTION GRIP PROCEDURE: ??XR FOOT LEFT 3VW OR MORE, DATE/TIME OF EXAM: ??12/02/2022 6:48 PM, LOCATION ??[facility] INDICATION: M79.89: Swelling of left foot ADDITIONAL [...] osteomyelitis. Report dictated by Dante Schultz MD (interventional radiology technologist). I, Xander De Guzman MD have personally reviewed and interpreted this examination/study. > Interpreting Provider: Xander De Guzman MD on 12/03/2022 2:25 PM Procedure Note Xander De Guzman MD - 12/03/2022 PROCEDURE: XR FOOT LEFT 3VW OR MORE, DATE/TIME OF EXAM: 12/02/2022 6:48 PM, LOCATION [facility] INDICATION: M79.89: Swelling of left foot ADDITIONAL [...] osteomyelitis. Report dictated by Dante Schultz MD (interventional radiology technologist). I, Xander De Guzman MD have personally reviewed and interpreted this examination/study. > Interpreting Provider: Xander De Guzman MD on 12/03/2022 2:25 PM Trisha Rodríguez PA-C DIAGNOSTIC IMAGING O RDERABLES * (ABNORMAL) ERYTHROCYTE SEDIMENTATION RATE (12/02/2022 7:55 PM PRODUCTION GRIP) Pathologist [facility] Erythrocyte Sedimentation Rate Westergren >130(H) 0 - 20 MM/HR 12/02/2022 10:44 PM PRODUCTION GRIP [facility] Blood BLOOD SPECIMEN / Unknown Venipuncture / Unknown 12/02/2022 7:55 PM PRODUCTION GRIP 12/02/2022 8:04 PM PRODUCTION GRIP Himanshu Espino MD LAB - HEMATOLOGY ORD ERABLES [facility] [address] [place] [address], [facility] [phone] * (ABNORMAL) DIFFERENTIAL MANUAL (12/02/2022 7:55 PM PRODUCTION GRIP) Pathologist [facility] WBC (corrected for NRBC) 42.0 10? 3 /uL 12/02/2022 9:36 PM PRODUCTION GRIP [facility] Total Cell Count 100 12/02/2022 9:[address] [facility] Neutrophils Absolute Manual 39.06(H) 1.60 - 7.00 10? 3 /uL 12/02/2022 9:[address] [facility] Comment:(BANDS+SEGS) x WBC = NEUT # (ANC) Lymphocyte Absolute Manual 0.84(L) 1.10 - 3.90 10? 3 /uL 12/02/2022 9:[address] [facility] Monocytes Absolute Manual 2.10(H) 0.26 - 1.07 10? 3 /uL 12/02/2022 9:[address] [facility] Band % Manual 3 0 - 10 % 12/02/2022 9:[address] [facility] Neutrophil % Manual 90(H) 35 - 70 % 12/02/2022 9:[address] [facility] Lymphocyte % Manual 2(L) 20 - 43 % 12/02/2022 9:[address] [facility] Monocytes % Manual 5 5 - 13 % 12/02/2022 9:[address] [facility] Platelet Estimate Increased (A) Adequate 12/02/2022 9:[address] [facility] Microcytes Few(A) None 12/02/2022 9:[address] [facility] Target Cells 2+(A) None 12/02/2022 9:[address] [facility] Ovalocytes Occasiona l(A) None 12/02/2022 9:[address] [facility] Large Platelet Count Occasiona l(A) None 12/02/2022 9:[address] [facility] Blood BLOOD SPECIMEN / Unknown Venipuncture / Unknown 12/02/2022 7:55 PM PRODUCTION GRIP 12/02/2022 8:04 PM PRODUCTION GRIP Trisha Rodríguez PA-C LAB - HEMATOLOGY ORD ERABLES [facility] [address] [place] [phone], [facility] [phone] * HCG BETA BLOOD QUANTITATIVE (12/02/2022 7:55 PM PRODUCTION GRIP) Beta-hCG Total Quantitative <3 mIU/mL 12/02/2022 8:[address] [facility] Comment: This assay is cleared for use in the early detection of only. It is not approved for any other uses such as tumor marker screening, tumor marker monitoring, etc. and should not be used for any other purposes. HCG Numeric Result Interpretation: ? Non- Females: ? < 5 mIU/mL ? Post-Menopausal Females: ??< 7 mIU/mL ? Blood BLOOD SPECIMEN / Unknown Venipuncture / Unknown 12/02/2022 7:55 PM PRODUCTION GRIP 12/02/2022 8:12 PM PRODUCTION GRIP Trisha Rodríguez PA-C LAB - CHEMISTRY DIVINA OLVERA [facility] [address] [place] [phone], [facility] [phone] * (ABNORMAL) B-TYPE NATRIURETIC PEPTIDE (12/02/2022 7:55 PM PRODUCTION GRIP) [facility] BNP 551(H) <100 pg/mL 12/02/2022 8:24 PM PRODUCTION GRIP [facility] Comment: A decision threshold of 100 [...] Unknown Venipuncture / Unknown 12/02/2022 7:55 PM PRODUCTION GRIP 12/02/2022 8:07 PM PRODUCTION GRIP Trisha Rodríguez PA-C LAB - CHEMISTRY DIVINA OLVERA Performing Organization Address [facility] de Phone Number [address] [address], [place] [address] [place] [address] [phone] * TROPONIN I (12/02/2022 7:55 PM PRODUCTION GRIP) Troponin I 0.023 <0.032 ng/mL 12/02/2022 8:30 PM PRODUCTION GRIP [facility] Blood BLOOD SPECIMEN / Unknown Venipuncture / Unknown 12/02/2022 7:55 PM PRODUCTION GRIP 12/02/2022 8:12 PM PRODUCTION GRIP Trisha Rodríguez PA-C [employer] CHEMISTRY DIVINA OLVERA Performing Organization Address [facility] de Phone Number [address] [address], [place] [address] [phone] * (ABNORMAL) COMPREHENSIVE METABOLIC PANEL (12/02/2022 7:55 PM PRODUCTION GRIP) BUN 27(H) 7 - 26 mg/dL 12/02/2022 8:[address] [facility] Creatinine 2.95(H) 0.56 - 0.96 mg/dL 12/02/2022 8:[address] [facility] Sodium 139 136 - 145 mmol/L 12/02/2022 8:[address] [facility] Potassium 3.9 3.5 - 4.5 mmol/L 12/02/2022 8:[address] [facility] Chloride 106 98 - 107 mmol/L 12/02/2022 8:[address] [facility] CO2 17(L) 22 - 29 mmol/L 12/02/2022 8:[address] [facility] Glucose 53(LL) 70 - 115 mg/dL 12/02/2022 8:[address] [facility] Calcium 7.6(L) 8.4 - 10.2 mg/dL 12/02/2022 8:[address] [facility] Protein Total 6.0 6.0 - 8.3 g/dL 12/02/2022 8:[address] [facility] Albumin 0.8(L) 3.4 - 5.0 g/dL 12/02/2022 8:[address] [facility] Bilirubin Total 1.9(H) 0.2 - 1.2 mg/dL 12/02/2022 8:[address] [facility] Alkaline Phosphatase 313(H) 40 - 150 U/L 12/02/2022 8:[address] [facility] ALT 38 5 - 55 U/L 12/02/2022 8:[address] [facility] AST 47(H) 5 - 34 U/L 12/02/2022 8:[address] [facility] Anion Gap 20(H) 8 - 18 12/02/2022 8:[address] [facility] BUN/Creatinine Ratio 9 7 - 23 12/02/2022 8:[address] [facility] Osmolality Calculated 291 270 - 300 mOsm/kg 12/02/2022 8:[address] [facility] Albumin/Globulin Ratio 0.2(L) 1.1 - 2.3 12/02/2022 8:[address] [facility] eGFR by CKD-EPI 21(L) >=90 mL/min/1.7 3 m2 12/02/2022 8:[address] [facility] Blood BLOOD SPECIMEN / Unknown Venipuncture / Unknown 12/02/2022 7:55 PM PRODUCTION GRIP 12/02/2022 8:12 PM PRODUCTION GRIP Trisha Rodríguez PA-C LAB - CHEMISTRY DIVINA OLVERA [facility] [address] [place] [address], [facility] [phone] * (ABNORMAL) CBC W AUTO DIFFERENTIAL (12/02/2022 7:55 PM PRODUCTION GRIP) WBC 42.0(H) 3.5 - 10.5 10? 3 /uL 12/02/2022 9:[address] [facility] RBC 3.97 3.80 - 5.20 10? 6 /uL 12/02/2022 9:[address] [facility] Hemoglobin 8.9(L) 12.0 - 15.6 g/dL 12/02/2022 9:[address] [facility] Hematocrit 28.3(L) 35.0 - 45.0 % 12/02/2022 9:[address] [facility] MCV 71.3(L) 80.7 - 98.3 fL 12/02/2022 9:[address] [facility] MCH 22.4(L) 26.7 - 34.0 pg 12/02/2022 9:[address] [facility] MCHC 31.4 30.8 - 35.9 g/dL 12/02/2022 9:[address] [facility] RDW-SD 49.1 36.0 - 50.0 fL 12/02/2022 9:[address] [facility] RDW-CV 19.2(H) 11.2 - 14.8 % 12/02/2022 9:[address] [facility] Platelet Count 556(H) 150 - 400 10? 3 /uL 12/02/2022 9:[address] [facility] Comment: Platelet count verified by slide scan. This is an appended report. ??These results have been appended to a previously preliminary verified report. MPV 12/02/2022 9:[address] [facility] Comment:Unable to Report Immature Platelet Fraction 12/02/2022 9:[address] [facility] Comment:Unable to Report nRBC Absolute 0.04(H) 0 10? 3 /uL 12/02/2022 9:[address] [facility] nRBC Auto 0.1(H) 0 /100 WBC 12/02/2022 9:[address] [facility] Blood BLOOD SPECIMEN / Unknown Venipuncture / Unknown 12/02/2022 7:55 PM PRODUCTION GRIP 12/02/2022 8:04 PM PRODUCTION GRIP Trisha Rodríguez PA-C LAB - HEMATOLOGY ORD ERABLES [facility] [address] [place] [address], [facility] [phone] * XR CHEST 2VW (12/02/2022 7:31 PM PRODUCTION GRIP) Anatomical Region Laterality Modality Chest Radiographic Nissa ging 12/02/2022 8:42 PM PRODUCTION GRIP Impressions 12/03/2022 2:50 AM PRODUCTION GRIP IMPRESSION: 1.Cardiomegaly with suggestion of mild pulmonary edema. 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 The report was drafted by Dante Schultz MD (vice president of communications) I, Peter Donnelly MD, PhD have personally reviewed and interpreted this examination/study. > Interpreting Provider: Peter Donnelly MD, PhD on 12/03/2022 2:50 AM Narrative 12/03/2022 2:50 AM PRODUCTION GRIP EXAM: XR CHEST 2VW DATE/TIME: 12/02/2022 7:31 PM LOCATION: ??[facility] HISTORY: R09.02: Hypoxia COMPARISON: None. FINDINGS: Lines/Tubes: [...] CHEST 2VW DATE/TIME: 12/02/2022 7:31 PM LOCATION: [facility] HISTORY: R09.02: Hypoxia COMPARISON: None. FINDINGS: Lines/Tubes: [...] report was drafted by Dante Schultz MD (vice president of communications) I, Peter Donnelly MD, PhD have personally reviewed and interpreted this examination/study. > Interpreting Provider: Peter Donnelly MD, PhD on 12/03/2022 2:50 AM [facility] DIAGNOSTIC IMAGING O RDERABLES documented in this encounter Visit Diagnoses Diagnosis Hypoxia- Primary Hypoxemia Hypoxia Hypoxemia Swelling of left foot Left foot infection Unspecified local infection of skin and subcutaneous tissue Essential hypertension Intentional overdose of drug in tablet form (HCC) Severe recurrent major 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 psychotic features (HCC) Major depressive disorder, recurrent episode, severe, without mention of psychotic behavior PTSD (post-traumatic stress disorder) Posttraumatic stress disorder Gangrene (HCC) Gangrene Preop examination Preoperative examination, unspecified Hyperglycemia Other abnormal glucose Type 2 diabetes mellitus without complication, with long-term current use of insulin (HCC) Bacteremia due to Gram-positive bacteria Bacteremia S/P AKA (above knee amputation), left (HCC) Left foot infection Unspecified local infection of skin and subcutaneous tissue Severe recurrent major 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 psychotic features (HCC) Major depressive disorder, recurrent episode, severe, without mention of psychotic behavior PTSD (post-traumatic stress disorder) Posttraumatic stress disorder Essential hypertension Intentional overdose of drug in tablet form (HCC) Swelling of left foot Bacteremia due to Gram-positive bacteria Bacteremia documented in this encounter Administered Medications Inactive Administered Medications - up to 3 most recent administrations Medication Order MAR Action Action Date Dose Rate Site 0.9% NaCl injection 1-10 mL 1-10 mL, Intracatheter, PRN, Other, peripheral line flush, Starting on Fri12/03/22 at 0007, Until Fri12/12/22 at 1356, Flush peripheral IV catheter with 1-10 mL of normal saline before and after medications and prn to clear blood from the line or to verify patency. 0.9% NaCl injection 3 mL 3 mL, Intracatheter, EVERY 8 HOURS, First dose on Fri12/03/22 at 0045, Until Discontinued, Flush peripheral IV catheter with 3 mL of normal saline every 8 hours. $ Given 12/12/2022 6:56 AM PRODUCTION GRIP 3 mL $ Given 12/11/2022 9:27 PM PRODUCTION GRIP 3 mL $ Given 12/11/2022 2:35 PM PRODUCTION GRIP 3 mL acetaminophen (Tylenol) tablet 500 mg 500 mg, Oral, EVERY 6 HOURS, First dose on Fri12/03/22 at 0215, Until Discontinued, Patient preference for lesser PRN pain meds may be honored when the patient requests a less strong medication, a lower dose, or a less intrusive route of administration when the lesser drug, dose and route have been ordered for the patient. This patient request must be documented in the MAR. $ Given 12/12/2022 6:55 AM PRODUCTION GRIP 500 m g $ Given 12/11/2022 6:24 PM PRODUCTION GRIP 500 mg $ Given 12/11/2022 2:35 PM PRODUCTION GRIP 500 mg amLODIPine (Norvasc) tablet 10 mg 10 mg, Oral, DAILY, First dose on Fri12/04/22 at 0930, Until Discontinued $ Given 12/12/2022 9:50 AM PRODUCTION GRIP 10 mg $ Given 12/11/2022 8:29 AM PRODUCTION GRIP 10 mg $ Given 12/10/2022 9:59 AM PRODUCTION GRIP 10 mg amoxicillin-clavulanate (Augmentin) tablet 875 mg 875 mg, Oral, 2 TIMES DAILY, 14 doses, First dose on 12/08/22 at 1415, Last dose on 12/14/22 at 2100, Administer with food to decrease GI side effects., Indication for anti-infective therapy: Suspected infection, Site of anti-infective therapy: Skin/soft tissue $ Given 12/12/2022 10:20 AM PRODUCTION GRIP 875 mg $ Given 12/11/2022 9:27 PM PRODUCTION GRIP 875 mg $ Given 12/11/2022 8:29 AM PRODUCTION GRIP 875 mg carvedilol (Coreg) tablet 12.5 mg 12.5 mg, Oral, 2 TIMES DAILY WITH MEALS, First dose on Fri12/11/22 at 0800, Until Discontinued, Take with food $ Given 12/12/2022 9:50 AM PRODUCTION GRIP 12.5 mg $ Given 12/11/2022 6:24 PM PRODUCTION GRIP 12.5 mg $ Given 12/11/2022 8:29 AM PRODUCTION GRIP 12.5 mg cefepime (Maxipime) 2,000 mg in 0.9% NaCl IV 50 mL IVPB 2,000 mg (2 g), at 100 mL/hr, Intravenous, EVERY 12 HOURS, First dose on Fri12/02/22 at 2115, Until Discontinued, Indication for anti-infective therapy: Suspected infection, Site of anti-infective therapy: Skin/soft tissue $ New Bag/Syringe 12/06/2022 9:19 AM PRODUCTION GRIP 2,000 mg 100 mL/hr $ New Bag/Syringe 12/05/2022 8:39 PM PRODUCTION GRIP 2,000 mg 100 mL /hr $ New Bag/Syringe 12/05/2022 10:03 AM PRODUCTION GRIP 2,000 mg 100 m L/hr cefTRIAXone (Rocephin) 2,000 mg in 0.9% NaCl IV 50 mL IVPB 2,000 mg (2 g), at 100 mL/hr, Intravenous, EVERY 24 HOURS, First dose on Fri12/06/22 at 2000, Until Discontinued, Ceftriaxone can cause precipitation when administered with calcium-containing fluids, including LR. Flush lines with a compatible fluid, such as D5W or NS before and after ceftriaxone dose. Admin through separate lumens is acceptable. , Indication for anti-infective therapy: Documented infection, Site of anti-infective therapy: Blood $ New Bag/Syringe 12/07/2022 9:11 PM PRODUCTION GRIP 2,000 mg 100 mL/hr $ New Bag/Syringe 12/06/2022 8:18 PM PRODUCTION GRIP 2,000 mg 100 mL /hr clindamycin (Cleocin) 900 mg in 50 mL D5W IVPB 900 mg, at 100 mL/hr, Intravenous, EVERY 8 HOURS, First dose on Fri12/02/22 at 2115, Until Discontinued, Indication for anti-infective therapy: Suspected infection, Site of anti-infective therapy: Skin/soft tissue $ New Bag/Syringe 12/03/2022 6:05 AM PRODUCTION GRIP 900 mg 100 mL/hr $ New Bag/Syringe 12/02/2022 9:13 PM PRODUCTION GRIP 900 mg 100 mL /hr dextrose IV 25 g 25 g (50 mL), Intravenous, NOW, 1 dose, On 12/02/22 at 2045 $ Given 12/02/2022 9:14 PM PRODUCTION GRIP 25 g fentaNYL (PF) (Sublimaze) injection 50 mcg 50 mcg, Intravenous, EVERY 10 MIN PRN, Moderate Pain, 4 doses, Starting on Heide 12/05/22 at 1628, Until Heide 12/05/22 at 1759, Maximum total of 4 doses. If patient [...] patient request must be documented in the MAR., PACU $ Given 12/05/2022 5:05 PM PRODUCTION GRIP 50 mcg $ Given 12/05/2022 4:40 PM PRODUCTION GRIP 50 mcg fluconazole (Diflucan) tablet 150 mg 150 mg, Oral, ONCE, 1 dose, On Heide 12/05/22 at 1500, Indication for anti-infective therapy: Suspected infection, Site of anti-infective therapy: Urine/Genitourinary $ Given 12/05/2022 6:10 PM PRODUCTION GRIP 150 mg FLUoxetine (PROzac) capsule 20 mg 20 mg, Oral, DAILY, First dose on Fri12/03/22 at 0900, Until Discontinued $ Given 12/09/2022 9:03 AM PRODUCTION GRIP 20 mg $ Given 12/08/2022 9:29 AM PRODUCTION GRIP 20 mg $ Given 12/07/2022 8:07 AM PRODUCTION GRIP 20 mg furosemide (Lasix) injection 40 mg 40 mg, Intravenous, ONCE, 1 dose, On Fri12/03/22 at 0915 $ Given 12/03/2022 9:32 AM PRODUCTION GRIP 40 mg furosemide (Lasix) injection 60 mg 60 mg, Intravenous, ONCE, 1 dose, On Fri12/04/22 at 0915 $ Given 12/04/2022 9:16 AM PRODUCTION GRIP 60 mg furosemide (Lasix) tablet 40 mg 40 mg, Oral, 2 TIMES DAILY, First dose on Fri12/06/22 at 1145, Until Discontinued $ Given 12/12/2022 10:20 AM PRODUCTION GRIP 40 m g $ Given 12/11/2022 6:24 PM PRODUCTION GRIP 40 mg $ Given 12/11/2022 8:29 AM PRODUCTION GRIP 40 mg glucose 4 g chewable ADS Med 1 dose, Starting on 12/07/22 at 1144, Until 12/07/22 at 1148, Adelina Silvestre: cabinet override $ Given 12/07/2022 11:48 AM PRODUCTION GRIP heparin injection 7,500 Units 7,500 Units, Subcutaneous, 3 TIMES DAILY, First dose on Fri12/03/22 at 0800, Until Discontinued $ Given 12/12/2022 6:55 AM PRODUCTION GRIP 7,500 Units Abdominal Tissue $ Given 12/11/2022 9:27 PM PRODUCTION GRIP 7,500 Units A bdominal Tissue $ Given 12/11/2022 2:35 PM PRODUCTION GRIP 7,500 Units A bdominal Tissue HYDROmorphone (Dilaudid) injection 0.2 mg 0.2 mg, Intravenous, EVERY 4 HOURS PRN, breakthrough pain, Starting on Fri12/03/22 at 0220, Until Fri12/10/22 at 1043, Patient preference for lesser PRN pain meds may be honored when the patient requests a less strong medication, a lower dose, or a less intrusive route of administration when the lesser drug, dose and route have been ordered for the patient. This patient request must be documented in the MAR. $ Given 12/05/2022 8:34 PM PRODUCTION GRIP 0.2 m g $ Given 12/03/2022 9:38 PM PRODUCTION GRIP 0.2 mg $ Given 12/03/2022 5:10 PM PRODUCTION GRIP 0.2 mg HYDROmorphone (Dilaudid) injection 0.5 mg 0.5 mg, Intravenous, EVERY 10 MIN PRN, Severe Pain, 4 doses, Starting on Fri12/03/22 at 0028, Until Fri12/03/22 at 0119, Maximum total of 4 doses If patient [...] patient request must be documented in the MAR., PACU $ Given 12/03/2022 12:50 AM PRODUCTION GRIP 0.5 mg $ Given 12/03/2022 12:25 AM PRODUCTION GRIP 0.5 mg insulin glargine (Lantus) pen 10 Units 10 Units, Subcutaneous, AT BEDTIME, First dose (after last modification) on Fri12/05/22 at 2100, Until Discontinued, Obtain current Blood Glucose if necessary . WASTE DISPOSAL INSTRUCTIONS: Black Bin Disposal required. $ Given 12/11/2022 9:33 PM PRODUCTION GRIP 10 Units Abdominal Tissue $ Given 12/10/2022 9:19 PM PRODUCTION GRIP 10 Units Ab d Right Lower Quadrant $ Given 12/09/2022 10:19 PM PRODUCTION GRIP 10 Units A bd Left Lower Quadrant insulin glargine (Lantus) pen 5 Units 5 Units, Subcutaneous, AT BEDTIME, First dose on Fri12/04/22 at 2100, Until Discontinued, Obtain current Blood Glucose if necessary . WASTE DISPOSAL INSTRUCTIONS: Black Bin Disposal required. $ Given 12/04/2022 11:15 PM PRODUCTION GRIP 5 Units Righ t Arm insulin lispro (HumaLOG;ADMelog) 100 UNIT/ML pen 0-12 Units 0-12 Units, Subcutaneous, 3 TIMES DAILY WITH MEALS, First dose on Fri12/03/22 at 0800, Until Discontinued, DO NOT HOLD CORRECTION BOLUS EVEN IF PATIENT IS NPO. If patient is eating meals and has orders for Mealtime Insulin Bolus, combine and give at the same time. BEDSIDE GLUCOSE MUST BE PERFORMED AND DOCUMENTED WITHIN 30-60 MINUTES OF CORRECTION INSULIN ADMINISTRATION. BG (mg/dL) LESS than 70 = Follow Hypoglycemic guidelines 150-200 = give 2 units 201-250 = give 4 units, 251-300 = give 6 units 301-350 = give 8 units 351-400 = give 10 units and notify physician GREATER than 400 = give 12 units and notify physician $ Given 12/04/2022 6:04 PM PRODUCTION GRIP 6 Units Left Arm $ Given 12/04/2022 11:41 AM PRODUCTION GRIP 4 Units A bd Left Lower Quadrant $ Given 12/04/2022 8:10 AM PRODUCTION GRIP 6 Units Ab d Left Lower Quadrant insulin lispro (HumaLOG;ADMelog) 100 UNIT/ML pen 0-12 Units 0-12 Units, Subcutaneous, EVERY 4 HOURS, First dose (after last modification) on Fri12/05/22 at 0300, Until Discontinued, DO NOT HOLD CORRECTION BOLUS EVEN IF PATIENT IS NPO. If patient is eating meals and has orders for Mealtime Insulin Bolus, combine and give at the same time. BEDSIDE GLUCOSE MUST BE PERFORMED AND DOCUMENTED WITHIN 30-60 MINUTES OF CORRECTION INSULIN ADMINISTRATION. BG (mg/dL) LESS than 70 = Follow Hypoglycemic guidelines 150-200 = give 2 units 201-250 = give 4 units, 251-300 = give 6 units 301-350 = give 8 units 351-400 = give 10 units and notify physician GREATER than 400 = give 12 units and notify physician $ Given 12/09/2022 1:06 PM PRODUCTION GRIP 4 Units Right Arm $ Given 12/09/2022 12:58 AM PRODUCTION GRIP 2 Units A bd Left Lower Quadrant $ Given 12/08/2022 9:41 PM PRODUCTION GRIP 2 Units Le ft Arm insulin lispro (HumaLOG;ADMelog) 100 UNIT/ML pen 5 Units 5 Units, Subcutaneous, 3 TIMES DAILY WITH MEALS, First dose on Fri12/05/22 at 0815, Until Discontinued, Obtain current Blood Glucose if necessary. May be given immediately before meal, during meal, or immediately after meal is eaten. Meal must be present before administration. $ Given 12/11/2022 2:39 PM PRODUCTION GRIP 5 Units Abdominal Tissue $ Given 12/11/2022 9:18 AM PRODUCTION GRIP 5 Units Ri ght Arm $ Given 12/10/2022 6:05 PM PRODUCTION GRIP 5 Units Ab dominal Tissue morphine injection 4 mg 4 mg, Intravenous, ONCE, 1 dose, On 12/02/22 at 2100, Patient preference for lesser PRN pain meds may be honored when the patient requests a less strong medication, a lower dose, or a less intrusive route of administration when the lesser drug, dose and route have been ordered for the patient. This patient request must be documented in the MAR. $ Given 12/02/2022 9:30 PM PRODUCTION GRIP 4 mg nystatin (Mycostatin) powder Topical, 3 TIMES DAILY, First dose on Fri12/05/22 at 1515, Until Discontinued, Apply to intertriginous areas $ Given 12/12/2022 10:20 AM PRODUCTION GRIP $ Given 12/11/2022 9:35 PM PRODUCTION GRIP $ Given 12/11/2022 2:35 PM PRODUCTION GRIP oxyCODONE (immediate release) (Roxicodone) tablet 10 mg 10 mg, Oral, EVERY 6 HOURS PRN, Severe Pain, Starting on Fri12/03/22 at 0139, Until Heide 12/12/22 at 1356, Patient preference for lesser PRN pain meds may be honored when the patient requests a less strong medication, a lower dose, or a less intrusive route of administration when the lesser drug, dose and route have been ordered for the patient. This patient request must be documented in the MAR. $ Given 12/11/2022 12:03 AM PRODUCTION GRIP 10 m g $ Given 12/10/2022 1:13 PM PRODUCTION GRIP 10 mg $ Given 12/09/2022 1:08 PM PRODUCTION GRIP 10 mg oxyCODONE (immediate release) (Roxicodone) tablet 5 mg 5 mg, Oral, EVERY 6 HOURS PRN, Moderate Pain, Starting on Fri12/03/22 at 0139, Until Heide 12/12/22 at 1356, Patient preference for lesser PRN pain meds may be honored when the patient requests a less strong medication, a lower dose, or a less intrusive route of administration when the lesser drug, dose and route have been ordered for the patient. This patient request must be documented in the MAR. potassium chloride ER (Klor-Con M) tablet 20 mEq 20 mEq, Oral, DAILY WITH BREAKFAST, First dose on Fri12/10/22 at 1145, Until Discontinued, Do not crush or chew. $ Given 12/12/2022 10:20 AM PRODUCTION GRIP 20 mEq $ Given 12/11/2022 8:30 AM PRODUCTION GRIP 20 mEq $ Given 12/10/2022 1:12 PM PRODUCTION GRIP 20 mEq sodium bicarbonate tablet 650 mg 650 mg, Oral, 4 TIMES DAILY, First dose on Fri12/04/22 at 1800, Until Discontinued $ Given 12/10/2022 9:59 AM PRODUCTION GRIP 650 m g $ Given 12/09/2022 9:41 PM PRODUCTION GRIP 650 mg $ Given 12/09/2022 6:34 PM PRODUCTION GRIP 650 mg vancomycin (Vancocin) 1,250 mg in 250 mL NaCl IVPB Premix 1,250 mg, at 200 mL/hr, Intravenous, ONCE, 1 dose, On Fri12/04/22 at 0915, Indication for anti-infective therapy: Suspected infection, Site of anti-infective therapy: Wound $ New Bag/Syringe 12/04/2022 10:16 AM PRODUCTION GRIP 1,250 mg 200 mL/hr vancomycin (Vancocin) 1,250 mg in 250 mL NaCl IVPB Premix 1,250 mg, at 200 mL/hr, Intravenous, ONCE, 1 dose, On 12/07/22 at 0800, Indication for anti-infective therapy: Suspected infection, Site of anti-infective therapy: Blood, Bone/Joint $ New Bag/Syringe 12/07/2022 8:07 AM PRODUCTION GRIP 1,250 mg 200 mL/hr vancomycin (Vancocin) 2,500 mg in 500 mL NaCl IVPB Premix 2,500 mg, at 200 mL/hr, Intravenous, ONCE, 1 dose, On Fri12/02/22 at 2115, Indication for anti-infective therapy: Suspected infection, Site of anti-infective therapy: Skin/soft tissue $ New Bag/Syringe 12/02/2022 9:13 PM PRODUCTION GRIP 2,500 mg 200 mL/hr documented in this encounter Active and Recently Administered Medications Times are shown in PRODUCTION GRIP. Scheduled Medication Order 12/10/2022 12/11/2022 12/12/2022 0.9% NaCl injection 3 mL(Linked Group 1) 3 mL, Intracatheter, EVERY 8 HOURS, First dose on Fri12/03/22 at 0045, Until Discontinued, Flush peripheral IV catheter with 3 mL of normal saline every 8 hours. 0604 ($ Given - Provider: Jordan Bose RN)1315 ($ Given - Provider: Román Burger RN)2120 ($ Given - Provider: Althea Slater, JIMMIE) 0541 ($ Given - Provider: Althea Slater, JIMMIE)1435 ($ Given - Provider: Antony Interiano RN)2127 ($ Given - Provider: Julita Long, JIMMIE) 0656 ($ Given - Provider: Julita Long, JIMMIE) acetaminophen (Tylenol) tablet 500 mg 500 mg, Oral, EVERY 6 HOURS, First dose on Fri12/03/22 at 0215, Until Discontinued, Patient preference for lesser PRN pain meds may be honored when the patient requests a less strong medication, a lower dose, or a less intrusive route of administration when the lesser drug, dose and route have been ordered for the patient. This patient request must be documented in the MAR. 0031 ($ Given - Provider: Jordan Bose RN)0603 ($ Given - Provider: Jordan Bose RN)1312 ($ Given - Provider: Román Burger RN)1700 ($ Given - Provider: Jeanna Garcia RN) 0003 ($ Given - Provider: Althea Slater RN)0540 ($ Given - Provider: Althea Slater RN)1435 ($ Given - Provider: Antony Interiano RN)1824 ($ Given - Provider: Antony Interiano RN) 0017 (Not Administered - Provider: Julita Long RN - Reason: Refused-Patient)0655 ($ Given - Provider: Julita Long RN)1200 (Due) amLODIPine (Norvasc) tablet 10 mg 10 mg, Oral, DAILY, First dose on Fri12/04/22 at 0930, Until Discontinued 0959 ($ Given - Provider: Román Burger RN) 0829 ($ Given - Provider: Antony Interiano RN) 0950 ($ Given - Provider: Antony Interiano RN) amoxicillin-clavulanat e (Augmentin) tablet 875 mg 875 mg, Oral, 2 TIMES DAILY, 14 doses, First dose on 12/08/22 at 1415, Last dose on 12/14/22 at 2100, Administer with food to decrease GI side effects., Indication for anti-infective therapy: Suspected infection, Site of anti-infective therapy: Skin/soft tissue 0959 ($ Given - Provider: Román Burger RN)2118 ($ Given - Provider: Althea Slater RN) 0829 ($ Given - Provider: Antony Interiano RN)2127 ($ Given - Provider: Julita Long RN) 1020 ($ Given - Provider: Antony Interiano RN) carvedilol (Coreg) tablet 12.5 mg 12.5 mg, Oral, 2 TIMES DAILY WITH MEALS, First dose on Fri12/11/22 at 0800, Until Discontinued, Take with food 0829 ($ Given - Provider: Antony Interiano RN)1824 ($ Given - Provider: Antony Interiano RN) 0950 ($ Given - Provider: Antony Interiano RN) FLUoxetine (PROzac) capsule 20 mg 20 mg, Oral, DAILY, First dose on Fri12/03/22 at 0900, Until Discontinued 1000 (Not Administered - Provider: Román Burger RN - Reason: Refused-Patient) 0829 (Not Administered - Provider: Antony Interiano RN - Reason: Refused-Patient) 1020 (Not Administered - Provider: Antony Interiano RN - Reason: Refused-Patient) furosemide (Lasix) tablet 40 mg 40 mg, Oral, 2 TIMES DAILY, First dose on Fri12/06/22 at 1145, Until Discontinued 0959 ($ Given - Provider: Román Burger RN)1700 ($ Given - Provider: Jeanna Garcia RN) 0829 ($ Given - Provider: Antony Interiano RN)1824 ($ Given - Provider: Antony Interiano RN) 1020 ($ Given - Provider: Antony Interiano RN) heparin injection 7,500 Units 7,500 Units, Subcutaneous, 3 TIMES DAILY, First dose on Fri12/03/22 at 0800, Until Discontinued 0603 ($ Given - Provider: Jordan Bose RN)1315 ($ Given - Provider: Román Burger RN)2118 ($ Given - Provider: Althea Slater RN) 0541 ($ Given - Provider: Althea Slater RN)1435 ($ Given - Provider: Antony Interiano RN)2127 ($ Given - Provider: Julita Long, JIMMIE) 0655 ($ Given - Provider: Julita Long, JIMMIE) insulin glargine (Lantus) pen 10 Units 10 Units, Subcutaneous, AT BEDTIME, First dose (after last modification) on Fri12/05/22 at 2100, Until Discontinued, Obtain current Blood Glucose if necessary . WASTE DISPOSAL INSTRUCTIONS: Black Bin Disposal required. 2118 ($ Given - Provider: Althea Slater RN) 213 ($ Given - Provider: Julita Long, JIMMIE) insulin lispro (HumaLOG;ADMelog) 100 UNIT/ML pen 0-12 Units 0-12 Units, Subcutaneous, EVERY 4 HOURS, First dose (after last modification) on Heide 12/05/22 at 0300, Until Discontinued, DO NOT HOLD CORRECTION BOLUS EVEN IF PATIENT IS NPO. If patient is eating meals and has orders for Mealtime Insulin Bolus, combine and give at the same time. BEDSIDE GLUCOSE MUST BE PERFORMED AND DOCUMENTED WITHIN 30-60 MINUTES OF CORRECTION INSULIN ADMINISTRATION. BG (mg/dL) LESS than 70 = Follow Hypoglycemic guidelines 150-200 = give 2 units 201-250 = give 4 units, 251-300 = give 6 units 301-350 = give 8 units 351-400 = give 10 units and notify physician GREATER than 400 = give 12 units and notify physician 0118 (Not Administered - Provider: Jordan Bose RN - Reason: Per Administration Instructions)0556 (Not Administered - Provider: Jordan Bose RN - Reason: Per Administration Instructions)0958 (Not Administered - Provider: Román Burger RN - Reason: Per Administration Instructions)1314 (Not Administered - Provider: Román Burger RN - Reason: Per Administration Instructions)1626 (Not Administered - Provider: Román Burger RN - Reason: Per Administration Instructions)1959 (Not Administered - Provider: Althea Slater RN - Reason: Per Administration Instructions) 0004 (Not Administered - Provider: Althea Slater RN - Reason: Per Administration Instructions)0415 (Not Administered - Provider: Althea Slater RN - Reason: Per Administration Instructions)0829 (Not Administered - Provider: Antony Interiano RN - Reason: Per Administration Instructions - Comment: patinet glucose 88, no sliding scale needed)1435 (Not Administered - Provider: Antony Interiano RN - Reason: Refused-Patient - Comment: PATINET GLUCOSE 109, NO SLIDING SCALE NEEDED)1700 (Not Administered - Provider: Antony Interiano RN - Reason: Per Administration Instructions - Comment: patint glucose 121, no sliding scale needed)2132 (Not Administered - Provider: Julita Long RN - Reason: Per Administration Instructions) 0118 (Not Administered - Provider: Julita Long RN - Reason: Per Administration Instructions)0400 (Not Administered - Provider: Julita Long RN - Reason: Discontinued by physician - Comment: changed to 4 x qday)0930 (Not Administered - Provider: Antony Interiano RN - Reason: Per Administration Instructions - Comment: patinet glucose 91, no sliding scale needed)1200 (Due) insulin lispro (HumaLOG;ADMelog) 100 UNIT/ML pen 5 Units 5 Units, Subcutaneous, 3 TIMES DAILY WITH MEALS, First dose on Fri12/05/22 at 0815, Until Discontinued, Obtain current Blood Glucose if necessary. May be given immediately before meal, during meal, or immediately after meal is eaten. Meal must be present before administration. 0958 ($ Given - Provider: Román Burger RN)1314 ($ Given - Provider: Román Burger RN)1805 ($ Given - Provider: Jeanna Garcia RN) 0918 ($ Given - Provider: Antony Interiano RN)1439 ($ Given - Provider: Antony Interiano RN)1826 (Not Administered - Provider: Antony Interiano RN - Reason: Meal time altered - Comment: patinet had late lunch and is refusing supper) 1029 (Not Administered - Provider: Antony Interiano RN - Reason: Patient Condition - Comment: patient glucose 104 after eating, no insulin needed)1200 (Due) nystatin (Mycostatin) powder Topical, 3 TIMES DAILY, First dose on Fri12/05/22 at 1515, Until Discontinued, Apply to intertriginous areas 0959 ($ Given - Provider: Román Burger RN)1314 ($ Given - Provider: Román Burger RN)2118 ($ Given - Provider: Althea Slater RN) 0829 ($ Given - Provider: Antony Interiano RN)1435 ($ Given - Provider: Antony Interiano RN)2135 ($ Given - Provider: Julita Long RN) 1020 ($ Given - Provider: Antony Interiano RN) potassium chloride ER (Klor-Con M) tablet 20 mEq 20 mEq, Oral, DAILY WITH BREAKFAST, First dose on Fri12/10/22 at 1145, Until Discontinued, Do not crush or chew. 1312 ($ Given - Provider: Román Burger RN) 0830 ($ Given - Provider: Antony Interiano RN) 1020 ($ Given - Provider: Antony Interiano RN) sodium bicarbonate tablet 650 mg (CANCELED) 650 mg, Oral, 4 TIMES DAILY, First dose on Fri12/04/22 at 1800, Until Discontinued 0959 ($ Given - Provider: Román Burger RN) PRN Medication Order 12/10/2022 12/11/2022 12/12/2022 0.9% NaCl injection 1-10 mL(Linked Group 1) 1-10 mL, Intracatheter, PRN, Other, peripheral line flush, Starting on Fri12/03/22 at 0007, Until Fri12/12/22 at 1356, Flush peripheral IV catheter with 1-10 mL of normal saline before and after medications and prn to clear blood from the line or to verify patency. oxyCODONE (immediate release) (Roxicodone) tablet 10 mg(Linked Group 2) 10 mg, Oral, EVERY 6 HOURS PRN, Severe Pain, Starting on Fri12/03/22 at 0139, Until Fri12/12/22 at 1356, Patient preference for lesser PRN pain meds may be honored when the patient requests a less strong medication, a lower dose, or a less intrusive route of administration when the lesser drug, dose and route have been ordered for the patient. This patient request must be documented in the JAN. 1312 ($ Given - Provider: Román Burger RN) 2 ($ Given - Provider: Althea Slater RN) oxyCODONE (immediate release) (Roxicodone) tablet 5 mg(Linked Group 2) 5 mg, Oral, EVERY 6 HOURS PRN, Moderate Pain, Starting on Fri12/03/22 at 0139, Until Fri12/12/22 at 1356, Patient preference for lesser PRN pain meds may be honored when the patient requests a less strong medication, a lower dose, or a less intrusive route of administration when the lesser drug, dose and route have been ordered for the patient. This patient request must be documented in the JAN. 1312 (See Alternative - Provider: Román Burger RN) 2 (See Alternative - Provider: Althea Slater RN) Linked Groups Order Group 1: SALINE LOCK, INSERT AND MAINTAIN (CANCELED) Routine, CONTINUOUS, Starting on Fri12/03/22 at 0015, Until Specified, New collection And 0.9% NaCl injection 3 mLJump to med 3 mL, Intracatheter, EVERY 8 HOURS, First dose on Fri12/03/22 at 0045, Until Discontinued, Flush peripheral IV catheter with 3 mL of normal saline every 8 hours. And 0.9% NaCl injection 1-10 mLJump to med 1-10 mL, Intracatheter, PRN, Other, peripheral line flush, Starting on Fri12/03/22 at 0007, Until Heide 12/12/22 at 1356, Flush peripheral IV catheter with 1-10 mL of normal saline before and after medications and prn to clear blood from the line or to verify patency. Group 2: oxyCODONE (immediate release) (Roxicodone) tablet 5 mgJump to med 5 mg, Oral, EVERY 6 HOURS PRN, Moderate Pain, Starting on Fri12/03/22 at 0139, Until Heide 12/12/22 at 1356, Patient preference for lesser PRN pain meds may be honored when the patient requests a less strong medication, a lower dose, or a less intrusive route of administration when the lesser drug, dose and route have been ordered for the patient. This patient request must be documented in the MAR. Or oxyCODONE (immediate release) (Roxicodone) tablet 10 mgJump to med 10 mg, Oral, EVERY 6 HOURS PRN, Severe Pain, Starting on Fri12/03/22 at 0139, Until Heide 12/12/22 at 1356, Patient preference for lesser PRN pain meds may be honored when the patient requests a less strong medication, a lower dose, or a less intrusive route of administration when the lesser drug, dose and route have been ordered for the patient. This patient request must be documented in the MAR. documented in this encounter
--- OUTSIDE RECORDS SUMMARY | 2024-11-17 03:04 | XMS_ITS | Encounter Summary ---
Author Organization [facility] [employer] Address [address] [place] [address] Care Team Providers Care Integration Project Manager Name Role Phone Unavailable Primary Care Provider Unavailabl e Reason for Visit * Reason Comments WOUND INFECTION Pt presents with c/o blisters/sores to right foot which is draining clear drainage with foul odor for 1 week. Pedal pulse present. Strong odor present. See media for images. * Auth/Cert (Routine) Specialty Diagnoses / Procedures Referred By Jany t Referred To Contact Referral ID Status Reason Start Date Expiration Date Visits Re quested Visits Authorized [id number] 1 1 Encounter Details Date Type Department Care Team (Late st Contact Info) Description 12/02/2022 11:20 PM LAW SECRETARY - 12/03/2022 12:48 AM [facility] Surgery [facility] IVETH OP [address] [place] [address] Graeme Rodgesr MD [facility] 2L [place] [address] LEFT ANKLE DISARTICULATION LEVEL 2 @ 2220 Surgery Details Date/Time Status Location OR Service Patient Class Case Class Case Type Trauma Case? 12/02/2022 11:20 PM Posted [facility] OR OR 02 Vascular Emergency/ Urgent Emergency < 2Hrs Panel 1 Procedure LRB Anes Op Region Wound Class Comments LEFT ANKLE DISARTICULATION L EVEL 2 @ 2220 Left General Dirty or Infected Surgeon Surgeon Role Service Panel Graeme Rodgers MD Primary Vascular 1 Rafa Newman MD Resident - Assisting Vascular 1 documented in this encounter Social History Tobacco Use Types Packs/Day Years Used Date Smoking Tobacco: Never Smokeless Tobacco: Never Alcohol Use Standard Drinks/Week Comments Never 0 (1 standard drink = 0.6 oz pur e alcohol) AUDIT-C Answer Date Recorded Q1: How often do you have a drink containing alc ohol? Never 08/21/2022 Average Number of Drinks Not on file 022 Frequency of Binge Drinking Not on file 08/03 Overall Financial Resource Strain (CARDIA) Answe r Date Recorded How hard is it for you to pa y for the very basics like food, housing, medical care, and heating? Not hard at all 12/03/2022 [facility] [place] of Occupat ional Health - Occupational Stress [...] slept in a snf (including now)? No 12/03/2022 Sex and Gender Information Value Date Recorded Sex Assigned at Not on file Gender Identity Not on file Sexual Orientation Not on file documented as of this encounter Last Filed Vital Signs Vital Sign Reading Time Taken Comments Blood Pressure 110/72 12/03/2022 12:40 AM LAW SECRETARY Pulse 85 12/03/2022 12:42 AM LAW SECRETARY Temperature 36.3 ??C (97.3 ??F) 12/03/2022 12:[address] Respiratory Rate 20 12/03/2022 12:42 AM LAW SECRETARY Oxygen Saturation 92% 12/03/2022 12:42 AM LAW SECRETARY Inhaled Oxygen Concentration - - Weight 129.3 kg (285 lb) 12/02/2022 5:31 PM LAW SECRETARY Height 170.2 cm (5' 7 ) 12/02/2022 5:31 PM LAW SECRETARY Body Mass Index 48.55 12/02/2022 5:31 PM LAW SECRETARY documented in this encounter Functional Status Functional [...] encounter Discharge Summaries * Rosi Menard V., SOURCING ANALYST-VARNISHER - 12/12/2022 8:09 AM CST Hospital Discharge Summary Patient ID: Leeroy Canales [id number] 32 year old 1990 Admit date: 12/02/2022 [...] morbid obesity, MDD , who presented to [facility] on 12/02/2022 for large wound to the [...] retention ( resolved). Patient was discharged to [facility] on 12/12/2022 in stable condition Consults: ID, Psychiatry, Vascular surgery, adaptive physical educator, nutrition Pending Labs and Studies: none [...] and situation. Good mood, appropriate affect. Disposition: [facility] facility Patient Instructions: Medication List START taking [...] MG tablet Generic drug: ferrous sulfate nystatin 476046 UNIT/GM powder Commonly known as: Mycostatin Apply [...] Your Medications These medications were sent to [facility] [address] [facility] [address] [address] [facility] [address] ?? Alcohol Prep 70 % ?? ONETOUCH [...] ?? furosemide 40 MG tablet ?? nystatin 869476 UNIT/GM powder ?? potassium chloride ER 20 MEQ tablet Follow-up Information Graeme Rodgers MD . Specialty: Vascular Surgery Contact information: [address] [place] [address] 2L DIV OF VASCULAR SURGERY [facility] [address] Graeme Rodgers MD . Specialty: Vascular Surgery Contact information: [address] [place] [address] 2L DIV OF VASCULAR SURGERY [facility] [address] Follow up with provider . Follow up [...] on 12/12/2022 If you need to call [facility] for any reason, you may reach us at [phone] and dial [phone] for the seam press operator. PROBLEM LIST: Patient Active Problem List: Type II or unspecified type diabetes mellitus without mention of complication, not stated as uncontrolled ([facility]) Intentional overdose of drug in tablet form ([facility]) Severe recurrent major 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 psychotic features ([facility]) PTSD (post-traumatic stress disorder) CHF (congestive heart failure) ([facility]) Left foot infection Hypoxia Essential [...] surgery / 1:15 PM Graeme Rodgers MD [address] [id number] [facility] It is essential that you keep all of your follow-up appointments and go to your doctors appointments as scheduled. If a follow-up with your primary care provider has not been scheduled, you need to schedule an appointment tofollow-up on your hospitalization. If there is a conflict, please call the clinic ahead of time and reschedule the appointment. Thanks! Internal Medicine Department [address] [id number] If you develop symptoms of increased sadness, poor sleeping, anger or anxiety, talk with your primary care doctor. You can consider therapy as well. It is not uncommon for people to develop PTSD following a major medical illness. 1. [facility] [place] a. New clinical administrative coordinator: tel:[phone] b. They offer outpatient and intensive outpatient programs c. Website: https://HOMETRAX.Scripted/vsdufsqm-ffu-dfculznv/rulztdpvtfk-kilrwqtj-szcktxi-program/ 2. [facility] [place] a. The [facility] Center charges on [...] $10 to $65 c. The [facility] [place] is not eligible for Medicaid or Medicare. They can provide youa receipt to submit to your insurance carrier. d. Phone number: [phone]. The child care director will ask you for your contact information and then one of our intake staff, a graduate trainee, will call you for a 20-30 minute telephone interview. 3. [facility] a. Individual, couples, and family counseling. Therapy is provided by doctoral and masters-level students currently in the Medical Family Therapy Program at [facility]. All therapists aresupervised by faculty who are licensed professionals. b. Location: [address] [place] [address] [address], [place] [address] c. Phone number: [phone] d. Email: [email or web address] e. Website: https://www.[facility]/medicine/family-medicine/ovqgyc-mrdgfpgfzu-hrublm-therapy/in dex.php f. Cost: sliding scale fee 4. [facility] offers CBT a. 5. [facility] a. [address] [place] [address] b. Office: [phone] a. [employer] [address] [facility] [place] [address] ? fax [address] [facility], [address]?[place] [address]? To see who accepts your insurance, you can go to Thundersoft and search based on your insurance and type of therapy. You can email people directly on this site. Other resources: ??? For classes and group therapy: https://Flare Code/xodnink-xqd-rvawo-therapy/ o Takes insurance or roman ??? Books and workbooks o Free online: https://www.Mindwork Labst.nhs.uk/media/0303/nuiclhalt-cwqk-efu-ztquneen-phfvvre-5179.pdf o https://wwwBlinkbuggy/Awtoqdjlj-Bmhnvviwot-Ctnircr-Jvnymk-Xfvbxlli-Mzrtjrj/dp/1 620478160 o Cognitive Behavior Therapy, Second Edition: Basics [...] withsocial work and nursing, discussing with family. SECRETARY documented in this encounter Discharge Instructions * Discharge Instructions* Rosi Menard APRN-CNP - 12/08/2022 3:33 PM LAW SECRETARY Leeroy Canales, HOSPITAL COURSE: You were admitted [...] on 12/12/2022 If you need to call [facility] for any reason, you may reach us at [phone] and dial [phone] for the seam press operator. PROBLEM LIST: Patient Active Problem List: Type II or unspecified type diabetes mellitus without mention of complication, not stated as uncontrolled ([facility]) Intentional overdose of drug in tablet form ([facility]) Severe recurrent major 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 psychotic features ([facility]) PTSD (post-traumatic stress disorder) CHF (congestive heart failure) ([facility]) Left foot infection Hypoxia Essential [...] surgery / 1:[address] [facility] 2L [id number] [facility] It is essential that you keep all of your follow-up appointments and go to your doctors appointments as scheduled. If a follow-up with your primary care provider has not been scheduled, you need to schedule an appointment tofollow-up on your hospitalization. If there is a conflict, please call the clinic ahead of time and reschedule the appointment. Thanks! Internal Medicine Department [facility] [address] [place], [place] [id number] If you develop symptoms of increased sadness, poor sleeping, anger or anxiety, talk with your primary care doctor. You can consider therapy as well. It is not uncommon for people to develop PTSD following a major medical illness. [facility] [place] New clinical administrative coordinator: tel:[phone] They offer outpatient and intensive outpatient programs Website: https://Mind Palette/plyhgoib-gsp-ulyiazph/zexjgldsjtg-repgusup-hznzxbr-program/ [facility] [place] The [facility] Center charges on a [...] submit to your insurance carrier. Phone number: [phone]. The child care director will ask you for your contact information and then oneof our intake staff, a graduate trainee, will call you for a 20-30 minute telephone interview. [facility] Individual, couples, and family counseling. Therapy is provided by doctoral and masters-level students currently in the Medical Family Therapy Program at [facility]. All therapists are supervised by faculty who are licensed professionals. Location: [address] [place] [address], [place] [address] Phone number: [phone] Email: [email or web address] Website: https://www.[facility]/medicine/family-medicine/nujcjs-vscflaeqql-wwiaqo-therapy/in dex.php Cost: sliding scale fee S offers CBT [address] [address] Office: [phone] [facility] [address] [facility] [place] [address] ? fax [facility] [address]?[place] [address]? To see who accepts your insurance, you can go to Thundersoft and search based on your insurance and type of therapy. You can email people directly on this site. Other resources: For classes and group therapy: https://Flare Code/oujiyfn-iaf-pjolh-therapy/ Takes insurance or roman Books and workbooks Free online: https://www.Mindwork Labst.nhs.uk/media/2924/zgbusqpox-tsbs-kqz-rajurpsw-fiismyb-6544.pdf https://Dashbid/Ucfjofjcj-Wfgumharei-Wugrljv-Phlaif-Gsgvjwvq-Heauwwz/dp/1 696455292 Cognitive Behavior Therapy, Second Edition: Basics and [...] of anxiety and depression. [facility] [employer] SECRETARY documented in this encounter Medications at Time [...] daily with meals 08/13/2022 05/09/2023 nystatin (Mycostatin) 349060 UNIT/GM powder Apply to affected area 3 times daily 12/12/2022 08/09/2024 potassium chloride ER (Klor-Con M) 20 MEQ tablet Take 1 (one) tablet by mouth daily with breakfast 12/12/2022 03/02/2024 documented as of this encounter Progress Notes * Ying Ferguson - 12/12/2022 12:55 PM CST This insurance underwriter received a request from LORETTA Menard to schedule a follow up appointment with Endocrinology. The patient was called at [phone]. Per the patient, they will schedule their own follow up appointment. No further discharge scheduling needs at this time. Ying Ferguson 12/13/2022 SECRETARY * Charley Justice P - 12/12/2022 12:20 PM CST [facility] Psychiatry Consult Progress Note Leeroy Canales Age: [...] 12/03/22 2313 12/03/22 1707 12/03/22 0242 12/02/22 19508/25/22 0315 08/24/22 1404 08/24/22 0725 08/23/22 0314 [...] - - - Recent Labs Component Name 12/02/22204012/02/221954 ESR - >130* CRP 25.2* - Urine: [...] COCAINESCRN, METHADONE, LABPHEN, LABCANN in the last 99582 hours. Other: Blood Alcohol (BAL): No results for input(s): ETOH in the last 88709 hours. Serum Acetaminophen: No results for input(s): ACETAMINO in the last 95937 hours. Serum Salicylate:No results for input(s): SALICYLATE in the last 49801 hours. Radiology Impressions: No results found. EKG: Results for orders placed or performed during the hospital encounter of 12/02/22 EKG 12-LEAD Result Value Ref Range Ventricular Rate 77 BPM Atrial Rate 77 BPM P-R Interval 154 ms QRS Duration ms 88 ms Q-T Interval ms 416 ms QTC Calculation (Bezet) 470 ms Calculated P Hensel 44 degrees Calculated R Hensel 14 degrees Calculated T Hensel 23 degrees Interpretation EKG NORMAL SINUS RHYTHM [...] Medical Student Year 4 12/12/2022 12:20 PM SECRETARY * Imelda Tejeda RN - 12/12/2022 11:38 AM CST This RN met with Leeroy Canales in [place] [address] and educated patient on purpose of BRIDGE appt. This RN gave patient BRIDGE brochure with this RN's contact number and instructed patient to call for Bridge appt when discharging from [facility]. SECRETARY * Gia Zuleta CPhT - 12/12/2022 10:21 [...] questions, please contact the outpatient pharmacy at [phone]. Gia Zuleta CPhT [facility] at [address], [address] Floor [place], [place] [address] Hours of Operation Friday - Friday: 8:00am to 6:00pm Friday: 9:00am to 1:00pm Epic: [facility] *Ensure the patient and clinic's nearby ZIP codes box is unchecked* SECRETARY * Antony Interiano RN - 12/12/2022 10:12 AM CST Problem: Pain/Discomfort Goal: Patient exhibits reduced pain/discomfort as evidenced by pain scores 12/12/2022 1012 by Antony Interiano RN Outcome: Adequate for Discharge 12/12/2022 0718 by Antony Interiano RN Outcome: Progressing Goal: Patient uses pharmacological and non-pharmacological pain management strategies. 12/12/2022 1012 by Antony Interiano RN Outcome: Adequate for Discharge 12/12/2022717 by Antony Interiano RN Outcome: Progressing Goal: Patient verbalizes acceptable level of pain relief and ability to engage in desired activity. 12/12/2022 1012 by Antony Interiano RN Outcome: Adequate for Discharge 12/12/202218 by Antony Interiano RN Outcome: Progressing Problem: Fall Risk Goal: Fall risk and fall related injury risk are minimized (interventions related to the fall risk can be found in the flowsheet documentation) 12/12/2022 1012 by Antony Interiano RN Outcome: Adequate for Discharge 12/12/2022717 by Antony Interiano RN Outcome: Progressing Problem: Nutrient: Increased nutrient needs (specify) Goal: Total intake will meet estimated nutrient needs 12/12/2022 1012 by Antony Interiano RN Outcome: Adequate for Discharge 12/12/2022717 by Antony Interiano RN Outcome: Progressing Problem: Balance Goal: LTG - Patient will maintain balance to allow for safe mobility Outcome: Adequate for Discharge Goal: LTG - Patient will demonstrate Intervention to enhance balance for safe completion of daily activities Outcome: Adequate for Discharge SECRETARY * Kimberly Monterroso MSW - 12/12/2022 10:02 AM CST Facility Transfer Note Level of Care: Actual level of care at discharge: Acute Rehab Facility Facility Name: (include name of person confirming admission): Actual discharge provider: [facility]. Acute Rehab NH Made Aware of Special Needs (if applicable): yes RN Call Report to: [phone] Fax D/C Orders to: [phone] Transportation (company and number): [employer] [phone] Certificate of Medical Necessity rationale: # Wet Gangrene of the left foot # Necrotizing fascitis - X ray revealed Subcutaneous gas formation concern for necrotizing fasciitis s/p emergent left ankle disarticulation 12/02 - s/p left AKA by vascular on 12/05 Date/time of transfer: 12/12/22 12pm Accepting MD and contact #: Dr. Win Completed and Signed [id number] (if applicable): n/a Family/Other Notified of Transfer (name/phone): patient notified by rehabilitation services manager Authorization Skilled Care: Authorization for Transportation: Verified Qualifying Stay(Skilled Only): YES Comments: Transfer to rehab via ambulance Name/Phone number: KimberlyVERONIKA Camacho [phone] SECRETARY * Antony Interiano RN - 12/12/2022 7:18 [...] will meet estimated nutrient needs Outcome: Progressing SECRETARY * Brittney Bell MD - 12/12/2022 6:41 AM CST [facility] Consult Psychiatry Progress Note Leeroy Canales Age: [...] or depressive thoughts. Denied questions/concerns. Collateral GAYE BEAL-[phone]: spoke yesterday Mental Status Exam: Appearance:fairly groomed [...] si/hi/delusions Perception: denied hallucinations Fund of Knowledge: av Insight: fair Judgement: fair ?? Cognitive Functions: [...] PRECAUTIONS Patient Seenand staffed with Dr Case SECRETARY Associated attestation - Marko Case MD - 12/12/2022 4:09 PM LAW SECRETARY Attending Attestation: I have seen and evaluated [...] Lulú Mueller - 12/11/2022 2:58 PM CST had an initial visit with patient, her mother and brother. Patient discussed her illness and hospitalization. Patient expressed no immediate pastoral care needs. [employer] informed her that pastoral care remains available continuously. 613/01 Lulú Mueller 12/11/2022 3:29 PM SECRETARY * Kimberly Monterroso MSW - 12/11/2022 2:34 PM CST SW notified by Graciela that patient has been approved by insurance and will have a bed tomorrow12/12. SW arranged for [employer] crew 12/12 12pm. Med 1 OVERNIGHT HOUSEPERSON notified. VERONIKA Barrios 12/11/2022 [phone] SECRETARY * Charley Justice 12/11/2022 12:37 PM CST [facility] Psychiatry Consults History and Physical Name: Leeroy Canales Age: [age] year old Date of : 1990 Location: 6N History obtained from: History is obtained from [...] to move in with her sister in [place]. Currently denies depressed mood, sleeping problems, problems with concentration, decreased/increased appetite, SI/thoughts of self harm, AH/VH. Collateral History: None required Home Medications: (information from [facility]) Amlodipine 10 mg QD Carvedilol 12.5 mg BID FeruSul 325 QD Furosemide 20 mg QD Lantus 10 U QHS Insulin 5U TID w/ meals Fluoxetine 20 mg QD Pharmacy: [facility] [address] [place] [address] Past Psychiatric History: Previous diagnosis: Severe recurrent depression w/o psychotic features, PTSD Psychiatric Hospitalization: 08/2022 Previous suicide attempts: 08/2022 via OD (lasix, amlodipine, iron) Outpatient Psychiatrist/Therapist: None Past Medical History: Past Medical History: Diagnosis Date ??? Type 2 diabetes mellitus without complications ([facility]) Head Injury: None Family Psychiatric History: Suicide: [...] 0358 12/03/22 2313 12/03/22 1707 12/03/22 0242 12/02/22195408/25/22 0315 08/24/22 1404 08/24/22 0725 08/23/22 0314 [...] COCAINESCRN, METHADONE, LABPHEN, LABCANN in the last 87555 hours. Other: Blood Alcohol (BAL): No results for input(s): ETOH in the last 96798 hours. Serum Acetaminophen: No results for input(s): ACETAMINO in the last 79352 hours. Serum Salicylate:No results for input(s): SALICYLATE in the last 82829 hours. Radiology Impressions: No results found. EKG: Results for orders placed or performed during the hospital encounter of 12/02/22 EKG 12-LEAD Result Value Ref Range Ventricular Rate 77 BPM Atrial Rate 77 BPM P-R Interval 154 ms QRS Duration ms 88 ms Q-T Interval ms 416 ms QTC Calculation (Bezet) 470 ms Calculated P Hensel 44 degrees Calculated R Hensel 14 degrees Calculated T Hensel 23 degrees Interpretation EKG NORMAL SINUS RHYTHM NORMAL ECG WHEN COMPARED WITH ECG OF 21-aug-2022 NO SIGNIFICANT CHANGE WAS FOUND Confirmed by HIRAL HIGGINS MD ([id number]) on 12/09/2022 1:25:51 PM Impression and Plan: [...] Medical Student Year 4 12/11/2022 2:08 PM SECRETARY * Rosi Menard V., SOURCING ANALYST-VARNISHER - 12/11/2022 9:30 AM CST Images from the original note were not included. Hospitalist Daily Progress Note Name: Leeroy Canales Age: [age] year old Room: 613/01 Date Admitted: 12/02/2022 Hospital Course: Leeroy Canales is a 32 year old female with past medical history of DM 2, HTN, HFpEF, morbid obesity, MDD , who presented to [facility] on 12/02/2022 for large wound to the [...] Labs: reviewed CBC: Recent Labs Lab Units 12/11/221912/10/22 0036 12/09/22 0129 WBC 10??3/uL 12.5* 15.1* 19.1* RBC 10??6/uL 3.74* 3.49* 3.33* HGB g/dL 8.4* 8.0* 7.5* HCT % 30.2* 26.9* 25.4* BMP: Recent Labs Lab Units 12/11/220 12/10/22 0036 12/09/22 0129 NA mmol/L 144 [...] Value - Date/Time BACTERIAL VAGINOSIS RAPID TEST [[id number]] (Normal) Collected: 12/06/221819 Lab Status: Final result Specimen: Microbiology from Vaginal Swab Updated: 12/06/22 190 Bacterial Vaginosis Rapid Negative CHLAMYDIA + GC AMPLIFIED PROBE [[id number]] (Normal) Collected: 12/05/22 181 Lab Status: Final result Specimen: Microbiology from Vagina Updated: 12/06/22 0641 Chlamydia Amplified Probe Negative GC Amplified Probe Negative Narrative: Results based on detection/no detection of ribosomal RNA by amplified method. CULTURE BLOOD [[id number]] (Normal) Collected: 12/05/22 170 Lab Status: Final result Specimen: Blood Peripheral Updated: 12/10/221901 Culture No growth day 5 CULTURE BLOOD [[id number]] Lab Status: No result Specimen: Blood Peripheral CULTURE ANAEROBE [[id number]] (Normal) Collected: 12/03/2226 Lab Status: Final result Specimen: Body Fluid Updated: 12/08/22 0812 Culture No anaerobic organisms isolated CULTURE FLUID+GRAM STAIN [[id number]] (Abnormal) (Susceptibility) Collected: 12/03/2226 Lab Status: Final [...] diffusion test will be performed. CULTURE BLOOD [[id number]] (Abnormal) Collected: 12/02/222031 Lab Status: Final result Specimen: Blood Peripheral Updated: 12/07/22 181 Culture Growth of Scha[place] turicensis Gram Stain Gram-positive bacilli Narrative: Positive at 34 hrs CULTURE BLOOD [[id number]] (Abnormal) Collected: 12/02/221999 Lab Status: Final result Specimen: Blood Peripheral Updated: 12/09/22 184 Culture Growth of Scha[place] turicensis Gram Stain Gram-positive bacilli Gram-positive cocci Narrative: Positive at 57 hours 33 minutes Problem list: Intentional overdose of drug in tablet form ([facility]) POA: Unknown Severe recurrent major 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 [...] morbid obesity, MDD , who presented to [facility] on 12/02/2022 for large wound to the [...] 10 mg q.6 as a p.r.n. for qepawrhd-qk-fogkjw pain, - PT/OT( Patient will benefit from [...] Feel free to text page me through Chideo Date of service: 12/11/2022 Attending Physician: Amanda Georges MD SECRETARY * Antony Interiano RN - 12/11/2022 7:18 [...] to allow for safe mobility Outcome: Progressing SECRETARY * Althea Slater RN - 12/11/2022 1:16 [...] found in the flowsheet documentation) Outcome: Progressing SECRETARY * Román Burger RN - 12/10/2022 6:39 PM CST Patient had 3 BMs since morning and was cleaned up, Had c/o hurting her perineum and stump started crying and said I want to go home I'm not getting any medicines for my loose stools Called OVERNIGHT HOUSEPERSON Ute and informed. Pt also complained about breakfast ordered by child caregiver and this RN asked her whether she [...] they were send out of the floor. SECRETARY * Lulú Mueller - 12/10/2022 4:07 PM CST [employer] has made multiple attempts to visit patient. Patient has been asleep each time visited. Pastoral care remains available continuously. 613/01 Lulú Mueller 12/10/2022 4:08 PM SECRETARY * Ying Ferguson - 12/10/2022 1:53 PM CST Discharge tip length checker received a request from OVERNIGHT HOUSEPERSON Rosi Menard to schedule a follow up appointment with Vascular Surgery. Upon reviewing the chart, it should be noted that the patient has an appointment already scheduled with on 12/24/2022 at 1:15pm. No further discharge planning needs at this time. Ying Ferguson 12/10/2022 SECRETARY * Heather Love COTA - 12/10/2022 12:20 PM CST [facility] Physical Medicine and Rehabilitation Occupational Therapy Progress Note Patient: Leeroy Canales Med Record Number: [id number] Date of : 1990 Age: [age] year [...] of 2 and while maintaining WB precautions Mcc Goal(s): Patient to discharge to appropriate next [...] with call light within reach, with RN, Román aware, with therapy cues visible on white board. SECRETARY * Aide Sutton RD/BARI - 12/10/2022 12:01 PM CST Images from [...] scheduled for reassessment. Pt s/p left AKA 2; TTF 12/04. Wound vac removed 12/08. Reported [...] 113* 112* - 106 - - CO2 26 23 22 - 17* - 28 GLUCOSE 159* [...] plan for AKA Estimated Energy Needs: KCAL: [id number] (30-35 kcal/kg IBW) wound Protein (g): 95 [...] Progress: Continue with current goal [id number] SECRETARY * Kimberly Monterroso MSW - 12/10/2022 11:53 AM CST PADMINI continues to follow. Kenia is working to request auth from [employer] [place] [employer]. She asked SW about possible psych eval for patient due to h/o MDD and new amputation. SW contacted [facility] OVERNIGHT HOUSEPERSON who agreed to order eval. VERONIKA Barrios 12/10/2022 [phone] SECRETARY * Román Burger, JIMMIE - 12/10/2022 11:02 AM CST Problem: Fall [...] will meet estimated nutrient needs Outcome: Progressing SECRETARY * Neelam Brown PT - 12/10/2022 10:48 AM CST [facility] Physical Medicine and Rehabilitation Physical Therapy Progress Note Patient: Leeroy Canales Med Record Number: [id number] Date of : 1990 Age: [age] year [...] 2 to scoot up in bed Modified Rashawn: EDUCATION: While performing PT, Patient was instructed [...] to/from chair??with maximal assist and X 1 Mcc Goal(s): Patient to discharge to appropriate next [...] in bed, with call light within reach. SECRETARY * Rosi Menard V., SOURCING ANALYST-VARNISHER - 12/10/2022 8:35 AM CST Images from the original note were not included. Hospitalist Daily Progress Note Name: Leeroy Canales Age: [age] year old Room: [facility]/ Date Admitted: 12/02/2022 Hospital Course: Leeroy Canales is a 32 year old female with past medical history of DM 2, HTN, HFpEF, morbid obesity, MDD , who presented to [facility] on 12/02/2022 for large wound to the [...] 25.4* 25.6* BMP: Recent Labs Lab Units 12/10/22 0036 12/09/22 0129 12/08/22 0331 NA mmol/L 147* 146* 145 [...] Value - Date/Time BACTERIAL VAGINOSIS RAPID TEST [[id number]] (Normal) Collected: 12/06/22 182 Lab Status: Final result Specimen: Microbiology from Vaginal Swab Updated: 12/06/22 190 Bacterial Vaginosis Rapid Negative CHLAMYDIA + GC AMPLIFIED PROBE [[id number]] (Normal) Collected: 12/05/22 1819 Lab Status: Final result Specimen: Microbiology from Vagina Updated: 12/06/22 0641 Chlamydia Amplified Probe Negative GC Amplified Probe Negative Narrative: Results based on detection/no detection of ribosomal RNA by amplified method. CULTURE BLOOD [[id number]] (Normal) Collected: 12/05/22 1704 Lab Status: Preliminary result Specimen: Blood Peripheral Updated: 12/07/22 1901 Culture No growth CULTURE BLOOD [[id number]] Lab Status: No result Specimen: Blood Peripheral CULTURE ANAEROBE [[id number]] (Normal) Collected: 12/03/22 0027 Lab Status: Final result Specimen: Body Fluid Updated: 12/08/22 0812 Culture No anaerobic organisms isolated CULTURE FLUID+GRAM STAIN [[id number]] (Abnormal) (Susceptibility) Collected: 12/03/22 0027 Lab Status: Final result Specimen: Body Fluid [...] diffusion test will be performed. CULTURE BLOOD [[id number]] (Abnormal) Collected: 12/02/222031 Lab Status: Final result Specimen: Blood Peripheral Updated: 12/07/22 1811 Culture Growth of Schaalia turicensis Gram Stain Gram-positive bacilli Narrative: Positive at 34 hrs CULTURE BLOOD [[id number]] (Abnormal) Collected: 12/02/221999 Lab Status: Final result [...] morbid obesity, MDD , who presented to [facility] on 12/02/2022 for large wound to the [...] 10 mg q.6 as a p.r.n. for uqoipouf-ze-potioj pain, - PT/OT( Patient will benefit from [...] Feel free to text page me through Chideo Date of service: 12/10/2022 Attending Physician: Amanda Georges MD SECRETARY * Kimberly Monterroso MSW - 12/09/2022 4:15 PM CST New Facility Placement Referral source: PT/OT Date of referral: 12/09/22 Admitted from: home Special Needs: new AKA Patient Goal (short term and jail): short term Level of Care (SNF/Medicaid NH/Rehab/Stacker Driver Care/LTACH): acute rehab Spoke with (Phone number, if not patient. Family participation encouraged): patient Family Contacted: No List of facilities provided (patient preference and geographic preference): Yes Referrals initiated: Continued Care and Services - Admitted Since 12/02/2022 Destination Service Provider Request Status Selected Services Address Phone Fax Patient Preferred [facility] Acute Rehab Pending - Request Sent N/A [address] [phone] -- If Medicare-3 day qualifying stay verified: No monitoring facility responses Comments: Patient prefers [facility] from list of facilities provided. SW notified Anabel/KELVINI of referral. Name: VERONIKA Brooks Phone: [phone] SECRETARY * Ying Ferguson - 12/09/2022 3:42 PM CST Discharge Business Administration Professor received request from Dr. Bladimir Chandra to arrange follow-up appointment for Patient with Vascvular. This insurance underwriter called [phone] and spoke with Roxanna. Business Administration Professor was able to obtain follow-up appointment for Patient with Dr. machado on Saturday December 24, 2022 at 1:15 pm. No further follow-up needs from tip length checker indicated at this time. Ying Ferguson, Discharge Business Administration Professor 12/09/2022 SECRETARY * Román Burger RN - 12/09/2022 11:31 [...] found in the flowsheet documentation) Outcome: Progressing SECRETARY * Rosi Menard V., SOURCING ANALYST-VARNISHER - 12/09/2022 8:30 AM CST Images from the original note were not included. Hospitalist Daily Progress Note Name: Leeroy Canales Age: [age] year old Room: 613/ Date Admitted: 12/02/2022 Hospital Course: Leeroy Canales is a 32 year old female with past medical history of DM 2, HTN, HFpEF, morbid obesity, MDD , who presented to [facility] on 12/02/2022 for large wound to the [...] reviewed CBC: Recent Labs Lab Units 12/09/22 0129 12/08/22 0331 12/07/22 0533 WBC 10??3/uL 19.1* 20.0* 20.5* RBC [...] Value - Date/Time BACTERIAL VAGINOSIS RAPID TEST [[id number]] (Normal) Collected: 12/06/22 1820 Lab Status: Final result Specimen: Microbiology from Vaginal Swab Updated: 12/06/22 190 Bacterial Vaginosis Rapid Negative CHLAMYDIA + GC AMPLIFIED PROBE [[id number]] (Normal) Collected: 12/05/22 1819 Lab Status: Final result Specimen: Microbiology from Vagina Updated: 12/06/22 0641 Chlamydia Amplified Probe Negative GC Amplified Probe Negative Narrative: Results based on detection/no detection of ribosomal RNA by amplified method. CULTURE BLOOD [[id number]] (Normal) Collected: 12/05/22 1704 Lab Status: Preliminary result Specimen: Blood Peripheral Updated: 12/07/22 190 Culture No growth CULTURE BLOOD [[id number]] Lab Status: No result Specimen: Blood Peripheral CULTURE ANAEROBE [[id number]] (Normal) Collected: 12/03/2226 Lab Status: Final result Specimen: Body Fluid Updated: 12/08/22 0812 Culture No anaerobic organisms isolated CULTURE FLUID+GRAM STAIN [[id number]] (Abnormal) (Susceptibility) Collected: 12/03/2226 Lab Status: Final [...] diffusion test will be performed. CULTURE BLOOD [[id number]] (Abnormal) Collected: 12/02/222031 Lab Status: Final result Specimen: Blood Peripheral Updated: 12/07/22 181 Culture Growth of Schaalia turicensis Gram Stain Gram-positive bacilli Narrative: Positive at 34 hrs CULTURE BLOOD [[id number]] (Abnormal) Collected: 12/02/221999 Lab Status: Preliminary result [...] morbid obesity, MDD , who presented to [facility] on 12/02/2022 for large wound to the [...] 10 mg q.6 as a p.r.n. for duyrbfut-re-bxvrdg pain, Dilaudid 0.2 mg q.5 hours p.r.n. [...] Feel free to text page me through Chideo Date of service: 12/09/2022 Attending Physician: Branden Galindo MD SECRETARY * Jennifer Quinteros RN - 12/08/2022 7:39 [...] to allow for safe mobility Outcome: Progressing SECRETARY * Jenifer Duenas MD - 12/08/2022 12:32 PM CST Images from the original note were not included. [facility] Infectious Diseases Consultation Patient's Primary Care [...] Recent Labs Component Name 12/08/2233012/07/22 0533 12/06/22 04012/05/22 1703 WBC 20.0* 20.5* 19.5* 16.8* HGB 7.6* 8.1* 7.6* 6.6* HCT 25.6* 27.3* 25.2* 21.4* PLTCOUNT 562* - 577* 493* Recent Labs Component Name 12/08/2233012/07/22 0534 12/06/22 04012/02/22195408/25/2231408/24/22 1404 08/24/22 0725 SODIUM - - - [...] not displayed. Recent Labs Component Name 12/02/22195408/25/2231408/24/22 14008/24/22 0725 08/22/22 0317 08/21/22 0847 ALBUMIN - 2.0* 2.1* 1.7* - 2.2* ALKPHOS 313* - - - - 87 ALT 38 - - - - 11 AST 47* - - - - 5 TBIL - - - - - 0.3 TPROT - - - - - 5.5* - = values in this interval not displayed. No results for input(s): CDIFFTOXINAB in the last 54721 hours. No results for input(s): SEDRATE in the last 86788 hours. No results for input(s): CK in the last 98870 hours. .No results for input(s): VANCOTROUGH, VANCOPEAK, VANCSERIES in the last 25146 hours. Invalid input(s): VANCORAND Recent Labs Component Name 12/02/22203108/22/22 0317 HGBA1C 6.7* 11.7* Recent Labs Component Name 12/03/22 1659 PHUA 5.0 UROBILINUA Negative RBCUA 11-20* No results for input(s): FERRITIN in the last 91175 hours. Recent Labs Component Name 12/02/22 2041 CRP 25.2* No results for input(s): PROCALCITON in the last 20731 hours. Recent Labs Component Name 12/02/22 1955 [...] conveyed to Med- 2. Jenifer Duenas MD [facility] infectious Diseases team-2. SECRETARY * Himanshu Chandra MD - 12/08/2022 10:18 AM CST Vascular Surgery Plan of Care -Patient dressing taken down today, photo in media tab. Wound looks appropriate for current POD. -Patient will follow in vascular surgery clinic in 2 weeks (appointment requested) for staple removal. -Vascular surgery to sign off. Himanshu Chandra MD [facility] Vascular Surgery 12/08/2022 10:19 AM SECRETARY * Román Burger RN - 12/08/2022 10:18 [...] found in the flowsheet documentation) Outcome: Progressing SECRETARY * Rosi Menard V. SOURCING ANALYST-VARNISHER - 12/08/2022 8:06 AM CST Images from the original note were not included. Hospitalist Daily Progress Note Name: Leeroy Canales Age: [age] year old Room: 613/01 Date Admitted: 12/02/2022 Hospital Course: Leeroy Canales is a 32 year old female with past medical history of DM 2, HTN, HFpEF, morbid obesity, MDD , who presented to [facility] on 12/02/2022 for large wound to the [...] reviewed CBC: Recent Labs Lab Units 12/08/22 0331 12/07/22 0533 12/06/22 0401 WBC 10??3/uL 20.0* 20.5* [...] Value - Date/Time BACTERIAL VAGINOSIS RAPID TEST [[id number]] (Normal) Collected: 12/06/22 1820 Lab Status: Final result Specimen: Microbiology from Vaginal Swab Updated: 12/06/22 190 Bacterial Vaginosis Rapid Negative CHLAMYDIA + GC AMPLIFIED PROBE [[id number]] (Normal) Collected: 12/05/22 1819 Lab Status: Final result Specimen: Microbiology from Vagina Updated: 12/06/22 0641 Chlamydia Amplified Probe Negative GC Amplified Probe Negative Narrative: Results based on detection/no detection of ribosomal RNA by amplified method. CULTURE BLOOD [[id number]] (Normal) Collected: 12/05/22 1704 Lab Status: Preliminary result Specimen: Blood Peripheral Updated: 12/07/22 1901 Culture No growth CULTURE BLOOD [[id number]] Lab Status: No result Specimen: Blood Peripheral CULTURE ANAEROBE [[id number]] (Normal) Collected: 12/03/2226 Lab Status: Final result Specimen: Body Fluid Updated: 12/08/22 0812 Culture No anaerobic organisms isolated CULTURE FLUID+GRAM STAIN [[id number]] (Abnormal) (Susceptibility) Collected: 12/03/2226 Lab Status: Final [...] diffusion test will be performed. CULTURE BLOOD [[id number]] (Abnormal) Collected: 12/02/222031 Lab Status: Final result Specimen: Blood Peripheral Updated: 12/07/22 181 Culture Growth of Schaalia akinkemnsis Gram Stain Gram-positive bacilli Narrative: Positive at 34 hrs CULTURE BLOOD [[id number]] (Abnormal) Collected: 12/02/221999 Lab Status: Preliminary result Specimen: Blood Peripheral Updated: 12/07/22 1618 Culture Culture in progress Growth of Schaalia [...] morbid obesity, MDD , who presented to [facility] on 12/02/2022 for large wound to the [...] 10 mg q.6 as a p.r.n. for wgfafjqj-pg-tesevs pain, Dilaudid 0.2 mg q.5 hours p.r.n. [...] Feel free to text page me through Chideo Date of service: 12/08/2022 Attending Physician: Branden Galindo MD SECRETARY * Jennifer Quinteros RN - 12/07/2022 7:32 [...] safe completion of daily activities Outcome: Progressing SECRETARY * Leigh Meek OT - 12/07/2022 1:09 PM CST [facility] Physical Medicine and Rehabilitation Occupational Therapy Re-assessment Patient: Leeroy Canales Med Record Number: [id number] Date of : 1990 Age: [age] year [...] of 2 and while maintaining WB precautions Mcc Goal(s): Patient to discharge to appropriate next [...] light within reach, with family in room. SECRETARY * Adelina Silvestre RN - 12/07/2022 11:52 AM CST Patient received glucose tablet current BG 70. Ordered lunch. Will continue to monitor during shift SECRETARY * Adelina Silvestre RN - 12/07/2022 11:40 AM CST Patients BG 48. Paged Med 1 to inform them of this. Waiting for response. Pt. Was given orange juice. There are no prn orders for low BG for this patient. SECRETARY * Ai Garvin, PT - 12/07/2022 10:23 AM CST [facility] Physical Medicine and Rehabilitation Physical Therapy Initial Re-Evaluation Note Patient: Leeroy Canales Med Record Number: [id number] Date of : 1990 Age: [age] year [...] mention of complication, not stated as uncontrolled ([facility]) Intentional overdose of drug in tablet form ([facility]) Severe recurrent major 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 psychotic features ([facility]) PTSD (post-traumatic stress disorder) CHF (congestive heart failure) ([facility]) Left foot infection Hypoxia Essential hypertension Swelling of left foot Bacteremia due to Gram-positive bacteria Past Medical History: Diagnosis Date ??? Type 2 diabetes mellitus without complications ([facility]) SUBJECTIVE: Subjective: Patient agreeable to PT/OT session. Patient reports pain/ sensation to LLE (phantom limb). Of note, patient with visitor present who reports to therapists at end of session that patient had recent episode of emesis s/p drinking juice from tray (Per RN drink was Nathaniel- RN Adelina notified) PATIENT GOALS: Home Situation: Additional Information (PT): see initial evaluation completed 12/04 Prior Level of Functioning: Mobility: (see initial evaluation completed 12/04) Pain Assessment: Pain Rating Score #: 7 [...] and Oxygen Nasal Cannula (doffed during session 2/ SpO2 reads stable on RA) Edema: edema [...] chair with maximal assist and X 1 Stacker Driver Goal(s): Patient to discharge to appropriate next [...] within reach, with family in room, with RNAdelina aware. SECRETARY * Adelina Silvestre RN - 12/07/2022 9:18 AM CST [...] will meet estimated nutrient needs Outcome: Progressing SECRETARY * Rosi Menard APRN-VARNISHER - 12/07/2022 8:53 AM CST Images from the original note were not included. Hospitalist Daily Progress Note Name: Leeroy Canales Age: [age] year old Room: 613/ Date Admitted: 12/02/2022 Hospital Course: Leeroy Canales is a 32 year old female with past medical history of DM 2, HTN, HFpEF, morbid obesity, MDD , who presented to [facility] on 12/02/2022 for large wound to the [...] Value - Date/Time BACTERIAL VAGINOSIS RAPID TEST [[id number]] (Normal) Collected: 12/06/22 1820 Lab Status: Final result Specimen: Microbiology from Vaginal Swab Updated: 12/06/22 1900 Bacterial Vaginosis Rapid Negative CHLAMYDIA + GC AMPLIFIED PROBE [[id number]] (Normal) Collected: 12/05/22 1819 Lab Status: Final result Specimen: Microbiology from Vagina Updated: 12/06/22 0641 Chlamydia Amplified Probe Negative GC Amplified Probe Negative Narrative: Results based on detection/no detection of ribosomal RNA by amplified method. CULTURE BLOOD [[id number]] (Normal) Collected: 12/05/22 1704 Lab Status: Preliminary result Specimen: Blood Peripheral Updated: 12/06/22 1901 Culture No growth 24 hours CULTURE BLOOD [[id number]] Lab Status: No result Specimen: Blood Peripheral CULTURE ANAEROBE [[id number]] (Normal) Collected: 12/03/2226 Lab Status: Preliminary result Specimen: Body Fluid Updated: 12/06/22 1354 Culture No anaerobic organisms isolated to date. CULTURE FLUID+GRAM STAIN [[id number]] (Abnormal) (Susceptibility) Collected: 12/03/2226 Lab Status: Final [...] diffusion test will be performed. CULTURE BLOOD [[id number]] (Abnormal) Collected: 12/02/222031 Lab Status: Preliminary result Specimen: Blood Peripheral Updated: 12/05/22 1220 Gram Stain Gram-positive bacilli Narrative: Positive at 34 hrs CULTURE BLOOD [[id number]] (Abnormal) Collected: 12/02/221999 Lab Status: Preliminary result [...] morbid obesity, MDD , who presented to [facility] on 12/02/2022 for large wound to the [...] 10 mg q.6 as a p.r.n. for wyhyrvte-ey-zsgmoa pain, Dilaudid 0.2 mg q.5 hours p.r.n. [...] Feel free to text page me through Chideo Date of service: 12/07/2022 Attending Physician: Branden Galindo MD SECRETARY * Felipe Bishop Jr., PharmD - 12/07/2022 [...] Value - Date/Time BACTERIAL VAGINOSIS RAPID TEST [[id number]] (Normal) Collected: 12/06/22 1820 Lab Status: Final result Specimen: Microbiology from Vaginal Swab Updated: 12/06/22 1900 Bacterial Vaginosis Rapid Negative CHLAMYDIA + GC AMPLIFIED PROBE [[id number]] (Normal) Collected: 12/05/22 1819 Lab Status: Final result Specimen: Microbiology from Vagina Updated: 12/06/22 0641 Chlamydia Amplified Probe Negative GC Amplified Probe Negative Narrative: Results based on detection/no detection of ribosomal RNA by amplified method. CULTURE BLOOD [[id number]] (Normal) Collected: 12/05/22 1704 Lab Status: Preliminary result Specimen: Blood Peripheral Updated: 12/06/22 1901 Culture No growth 24 hours CULTURE BLOOD [[id number]] Lab Status: No result Specimen: Blood Peripheral CULTURE ANAEROBE [[id number]] (Normal) Collected: 12/03/22 0027 Lab Status: Preliminary result Specimen: Body Fluid Updated: 12/06/22 1354 Culture No anaerobic organisms isolated to date. CULTURE FLUID+GRAM STAIN [[id number]] (Abnormal) (Susceptibility) Collected: 12/03/22 0027 Lab Status: Final result Specimen: Body Fluid [...] diffusion test will be performed. 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 Will continue to monitor patient's renal function. Please contact the [facility] pharmacy department ([phone]) with any questions. Felipe Bishop Jr., PharmD 12/07/2022 7:12 AM Resources: Vancomycin Protocol SECRETARY * Jennifer Quinteros RN - 12/06/2022 7:45 PM CST Problem: Pain/Discomfort Goal: Patient exhibits reduced pain/discomfort as evidenced by pain scores Outcome: Progressing Problem: Fall Risk Goal: Fall risk and fall related injury risk are minimized (interventions related to the fall risk can be found in the flowsheet documentation) Outcome: Progressing SECRETARY * Sumi Rose RN - 12/06/2022 11:49 [...] Continue to monitor. Sumi Rose RN, BSN [employer] [phone] SECRETARY * Román Burger RN - 12/06/2022 10:07 [...] found in the flowsheet documentation) Outcome: Progressing SECRETARY * Tyrel Gilliam MD - 12/06/2022 8:06 [...] input(s): PT, PTT, INR in the last 29717 hours. 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 recovering. pain adequately controlled. -continue left above-knee amputation wound vacuum -will examine amp site 2/ -remainder of care per primary Tyrel Gilliam MD Division of Vascular Surgery, PGY-3 12/06/2022 8:08 AM SECRETARY * Leigh Lauren PA - 12/06/2022 7:16 AM CST Hospitalist Daily Progress Note Name: Leeroy Canales Age: [age] year old Room: 613/01 Date Admitted: 12/02/2022 Disposition: Inpatient Total duration of encounter: 4 days Hospital Course: Leeroy Canales is a 32 year old female with PMHx of DM2, HTN, HFpEF, morbid obesity, and MDD who presented to [facility] on 12/02 for large wound to left [...] recurrent major 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 psychotic features (CMS/HCC) 08/22/2022 Priority: Not Prioritized ??? PTSD (post-traumatic stress disorder) 08/22/2022 Priority: Not Prioritized ??? Intentional overdose of drug in tablet form (CMS/HCC) 08/21/2022 Priority: Not Prioritized Resolved Hospital Problems No resolved problems to display. 24H/S: Patient underwent L AKA yesterday, states that associated pain is controlled. / in severity. Shedid take her antidepressant this [...] 2.75)* * Growth percentiles are based on [facility] (Girls, 2-20 Years) data. PE: General appearance [...] morbid obesity, and MDD who presented to [facility] on 12/02 for large wound to left foot, imaging concerning for necrotizing fasciitis,initially underwent L ankle disarticulation, now s/p L AKA with wound vac in place. Patient Active Problem List: Type II or unspecified type diabetes mellitus without mention of complication, not stated as uncontrolled ([facility]) Intentional overdose of drug in tablet form ([facility] Severe recurrent major 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 psychotic features ([facility]) PTSD (post-traumatic stress disorder) CHF (congestive heart failure) ([facility]) Left foot infection Hypoxia Essential [...] (IMPLEMENT) CONTINUOUS Start Time: 12/03/22729 Order ID: [id number] Status: Sent 12/03/22729 PT/OT Consulted Yes Diet DIETARY NUTRITION SUPPLEMENTS DIET DIABETIC CONSIST CARB Consult(s) IP CONSULT TO WOUND NURSE IP CONSULT TO GENERAL SURGERY IP CONSULT TO NUTRITIONAL SERV IP CONSULT TO WOUND NURSE IP CONSULT TO PROSTHETICS IP CONSULT TO INFECTIOUS DISEASES PCP No primary care provider on file. Code Full Code DC Dispo Inpatient TOÑITO Espinal Pager [phone] (monitored [phone] on working days only) Date of service: 12/06/2022 Attending Physician: Branden Galindo MD SECRETARY * Jennifer Quinteros RN - 12/06/2022 6:44 AM CST Pt has refused her vaginal swab,says she does not want it to be done now,she says later SECRETARY * Radha García DO - 12/05/2022 9:53 [...] care Radha García DO 12/05/2022 9:53 PM SECRETARY * Jennifer Quinteros RN - 12/05/2022 9:29 [...] will meet estimated nutrient needs Outcome: Progressing SECRETARY * Tyrel Gilliam MD - 12/05/2022 4:12 PM CST Vascular Surgery Plan of Care Note left lower extremity wound vacuum and dressing to remain in place until post op day #3 after left above-knee amputation. will be removed by vascular surgery. -non-weight bearing left lower extremity -prosthetics consult placed Tyrel Gilliam MD Division of Vascular Surgery, PGY-3 12/05/2022 4:52 PM SECRETARY * Kimberly Monterroso MSW - 12/05/2022 3:27 PM CST SW notified of PT/OT recs for rehab. Patient currently off the floor in OR, will need new therapy recs following surgery. VERONIKA Barrios 12/05/2022 [phone] SECRETARY * Lexus Bright, PharmD - 12/05/2022 2:46 [...] monitor patient's renal function. Please contact the [facility] pharmacy department ([phone]) with any questions. Lexus Bright PharmD 12/05/2022 2:25 PM Resources: Vancomycin Protocol SECRETARY * Leigh Meek, OT - 12/05/2022 2:36 PM CST [facility] Department of Physical Medicine & Rehabilitation Progress Note Patient: Leeroy Canales Med Record Number: [id number] Date of : 1990 Age: [age] year old 12/05/22 1400 Therapy on Hold Therapy on Hold Chart Reviewed;Surgery;New Order Required for Therapy SECRETARY * Amie Rodriguez RN - 12/05/2022 1:47 PM CST Very painful to patient with cleaning, has piercing . SECRETARY * Lee Gil, PT - 12/05/2022 1:23 PM CST [facility] Department of Physical Medicine & Rehabilitation Progress Note Patient: Leeroy Canales Med Record Number: [id number] Date of : 1990 Age: [age] year old 12/05/22 1323 Therapy on Hold Therapy on Hold Surgery;New Order Required for Therapy;Chart Reviewed Pt to OR under GA. Per PMR protocol new PT orders are required for continued treatment. SECRETARY * Román Burger RN - 12/05/2022 11:12 AM CST Problem: Fall Risk Goal: Fall risk and fall related injury risk are minimized (interventions related to the fall risk can be found in the flowsheet documentation) Outcome: Progressing Problem: Nutrient: Increased nutrient needs (specify) Goal: Total intake will meet estimated nutrient needs Outcome: Progressing SECRETARY * Keila Reynaga DO - 12/05/2022 7:31 AM CST Vascular [...] input(s): PT, PTT, INR in the last 33448 hours. 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 recovering adequately in icu. - Will proceed to OR today for L AKA - Continue NPO until OR complete Keila Reynaga DO Vascular Surgery Fellow 12/05/2022 7:31 AM SECRETARY * Leigh Lauren PA - 12/05/2022 7:31 AM CST Hospitalist Daily Progress Note Name: Leeroy Canales Age: [age] year old Room: OR/OR Date Admitted: 12/02/2022 Disposition: Inpatient Total duration of encounter: 3 days Hospital Course: Leeroy Canales is a 32 year old female with PMHx of DM2, HTN, HFpEF, morbid obesity, and MDD who presented to [facility] on 12/02 for large wound to left [...] Severe recurrent major 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 psychotic features ([facility]) 08/22/2022 Priority: Not Prioritized ??? PTSD (post-traumatic stress disorder) 08/22/2022 Priority: Not Prioritized ??? Intentional overdose of drug in tablet form ([facility]) 08/21/2022 Priority: Not Prioritized Resolved Hospital Problems [...] Patient agreeable. I have personally reviewed the MAR. Vitals: BP 141/87 Pulse 86 Temp 98 [...] mention of complication, not stated as uncontrolled ([facility]) Intentional overdose of drug in tablet form ([facility]) Severe recurrent major 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 psychotic features ([facility]) PTSD (post-traumatic stress disorder) CHF (congestive heart failure) ([facility]) Left foot infection Hypoxia Essential [...] 2/2 growing GPB, 1/2 growing GPC - vascular [...] (IMPLEMENT) CONTINUOUS Start Time: 12/03/22729 Order ID: [id number] Status: Sent 12/03/22729 PT/OT Consulted when able; OR for AKA today Diet DIETARY NUTRITION SUPPLEMENTS DIET DIABETIC CONSIST CARB Consult(s) IP CONSULT TO WOUND NURSE IP CONSULT TO GENERAL SURGERY IP CONSULT TO NUTRITIONAL SERV IP CONSULT TO WOUND NURSE IP CONSULT TO PROSTHETICS PCP No primary care provider on file. Code Full Code DC Dispo Inpatient Leigh TOÑITO Lauren Pager [phone] (monitored [phone] on working days only) Date of service: 12/05/2022 Attending Physician: Rafa Patel MD SECRETARY * Joy Rocha RN - 12/05/2022 5:59 [...] Will pass on to day shift RN. SECRETARY * Joy Rocha RN - 12/05/2022 5:12 [...] will meet estimated nutrient needs Outcome: Progressing Joy Saldana RN - 12/05/2022 3:58 AM CST Bladder scanned pt per order. Volume of 430 mls noted in bladder. Per order will re scan in 2 hours SECRETARY * Joy Rocha RN - 12/05/2022 3:14 AM CST Pt BG was 368. notified and orders given for q4 BG checks and insulin q4. Insulin administered per [facility] SECRETARY * Tyrel Gilliam MD - 12/04/2022 8:50 PM CST Vascular Surgery Plan of Care Note patient scheduled for left above-knee amputation for 12/05. -to operating room for left above-knee amputation -npo@mn; sips with meds -iv maintenance fluids -consent to be obtained -site to be marked -type and screen -chg bath Tyrel Gilliam MD Division of Vascular Surgery, PGY-3 12/04/2022 8:51 PM SECRETARY * Rafa Patel MD - 12/04/2022 4:36 [...] MD General Internal Medicine 12/04/2022 4:36 PM SECRETARY * Neelam Weldon RN - 12/04/2022 2:33 [...] to allow for safe mobility Outcome: Progressing SECRETARY * Eunice Scales RN - 12/04/2022 12:30 PM CST Patient transferred to room 613. All patient belongings with patient. Patient family notified. Report given to RN. All questions answered. SECRETARY * Eunice Scales RN - 12/04/2022 10:58 [...] will meet estimated nutrient needs Outcome: Progressing SECRETARY * Analy Pham PT - 12/04/2022 9:50 AM CST [facility] Physical Medicine and Rehabilitation Physical Therapy Initial Evaluation Note Patient: Leeroy Canales Med Record Number: [id number] Date of : 1990 Age: [age] year [...] mention of complication, not stated as uncontrolled ([facility]) Intentional overdose of drug in tablet form ([facility]) Severe recurrent major 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 psychotic features ([facility]) PTSD (post-traumatic stress disorder) CHF (congestive heart failure) ([facility]) Left foot infection Hypoxia Essential hypertension Swelling of left foot Past Medical History: Diagnosis Date ??? Type 2 diabetes mellitus without complications ([facility]) SUBJECTIVE: Subjective: Patient agreeable to PT evaluation. [...] chair with maximal assist and X 1 Mcc Goal(s): Patient to discharge to appropriate next [...] additional needs at conclusion of PT session. SECRETARY * CamronchasMonikah, OT - 12/04/2022 9:47 AM CST [facility] Physical Medicine and Rehabilitation Occupational Therapy Initial Evaluation Note Patient: Leeroy Canales Med Record Number: [id number] Date of : 1990 Age: [age] year [...] moderate assist and while maintaining WB precautions Mcc Goal(s): Patient to discharge to appropriate next [...] chair, with call light within reach, with RNEunice aware, RN declined need for chair alarm . SECRETARY * Willard Estrella MD - 12/04/2022 8:10 AM CST MICU Progress Note 12/04/2022 12:15 PM Patient: Leeroy Canales (:1990) Room: [facility] Admit Date: 12/02/2022. Hospital Day: 2 CC: [...] 1707 12/03/22 0242 12/02/22 1955 08/25/22 0315 NA 137 134* 137 134* - - [...] Name 12/02/221954 TROPONINI 0.023 Micro: -Blood (12/02): 1/2 GPB -Wound (12/03): GPC, GPB Imaging: Imaging [...] TTF Code Status: Full Willard Estrella MD SECRETARY Associated attestation - Levi Cooper MD - 12/04/2022 5:57 PM LAW SECRETARY Medical ICU Attending Note Date of Service: [...] results for input(s): PT in the last 48805 hours. No results for input(s): INR in the last 20104 hours. Recent Labs Component Name 12/04/22 1605 12/04/228 12/03/22 2313 12/03/22 1707 12/03/222 12/02/22195408/25/2231408/24/22 1404 08/24/22 0725 SODIUM - - [...] displayed. Recent Labs Component Name 12/04/22 1605 12/04/228 12/03/22 0242 MAGNESIUM 2.3 2.3 2.2 Recent Labs Component Name 12/02/22195408/25/2208/24/22 1404 08/24/22 0725 08/22/22 0317 08/21/22 0847 ALBUMIN - 2.0* 2.1* 1.7* - 2.2* ALKPHOS 313* - - - - 87 ALT 38 - - - - 11 AST 47* - - - - 5 TBIL - - - - - 0.3 TPROT - - - - - 5.5* - = values in this interval not displayed. Recent Labs Component Name 12/02/22 1955 TROPONINI 0.023 ABG: Recent Labs Component Name [...] for determining treatment decisions. Levi Cooper MD [facility] [employer] of Emergency Medicine Division of Pulmonary, Critical Care and Sleep Medicine [facility] * Tyrel Gilliam MD - 12/04/2022 5:12 [...] input(s): PT, PTT, INR in the last 51611 hours. Assessment/Plan: Leeroy Canales is a 32 [...] of Vascular Surgery, PGY-3 12/04/2022 5:14 AM SECRETARY * Imelda Nevarez RN - 12/04/2022 3:04 AM CST Problem: Pain/Discomfort Goal: Patient exhibits reduced pain/discomfort as evidenced by pain scores Outcome: Progressing Goal: Patient uses pharmacological and non-pharmacological pain management strategies. Outcome: Progressing Goal: Patient verbalizes acceptable level of pain relief and ability to engage in desired activity. Outcome: Progressing SECRETARY * Willard Estrella MD - 12/03/2022 11:16 AM CST MICU Progress Note 12/03/2022 11:32 AM Patient: Leeroy Canales (:1990) Room: [facility]/ Admit Date: 12/02/2022. Hospital Day: 1 CC: Wet gangrene Hospital Course: Leeroy Canales [...] CBC: Recent Labs Component Name 12/03/22 0943 12/03/22 0242 12/02/22195408/22/227 WBC - 37.1* 42.0* 9.6 HGB 8.2* 6.8* 8.9* 8.1* HCT - 22.3* 28.3* 26.8* BMP: Recent Labs Component Name 12/03/22 0242 12/02/22195408/25/2231408/24/22 1404 NA 134* 139 - - CL [...] Monitoring Code Status: Full Willard Estrella MD SECRETARY Associated attestation - Levi Cooper MD - 12/04/2022 5:52 PM LAW SECRETARY Medical ICU Attending Note Date of Service: [...] results for input(s): PT in the last 36034 hours. No results for input(s): INR in the last 17281 hours. Recent Labs Component Name 12/04/22 1605 [...] 2.3 2.3 2.2 Recent Labs Component Name 12/02/22195408/25/225 08/24/22 1404 08/24/22 0725 08/22/22 0317 [...] Intentional overdose of drug in tablet form ([facility]) POA: Unknown Severe recurrent major 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 psychotic features ([facility]) POA: Unknown PTSD (post-traumatic stress disorder) POA: [...] for determining treatment decisions. Levi Cooper MD [employer] [facility] of Emergency Medicine Division of Pulmonary, Critical Care and Sleep Medicine [facility] * Masha Finley RN - 12/03/2022 10:23 [...] with nurse Burr. Reconsult for further needs. SECRETARY * Jose Santamaria RN - 12/03/2022 9:53 [...] patient's preference is to stay within the [facility] Network and its affiliates.: Unsure Comments: CM talked to patient's mom Silvia Resendiz, patient has been living at home with her sisterGaye Beal, needs assistance with mobility. Lives with: Sister Physical Limitations: (Needs assistance with walking) Requires Assistance With: Mobility Insurance: Payer/Plan Subscriber Name Rel Member # Group # [facility]* LEEROY CANALES Self [id number] [address] Readmission: No Readmission Risk: READMISSION RISK SCORE is 15 at 9:54 AM 12/03/2022. Met with: CM talked to patient's mom Silvia Resendiz via phone. Family Support (name and phone): Extended Emergency Contact Information Primary Emergency Contact: Silvia Resendiz Mobile Relation: Mother Industrial Spray Painter needed? No Secondary Emergency Contact: EMIGDIOGAYE Mobile Relation: Sister Industrial Spray Painter needed? No Patient or claim representative requests care coordination reach out to family or caregiver listed above regarding discharge planning and at time of discharge?Yes Patient/Family provided with list of resources? No Preferred Provider / High Quality Network List given?: No Reason for provider choice: Pt. choice - Pt. choice Equipment at Home: Other (comment) (Pending therapy recommendations) Brazer Assembler Referral: Yes Will continue to follow. For any questions or needs please contact: Art Gilder Name/Phone number: Jose Santamaria RN BSN [phone] SECRETARY * Jed Clancy PharmD - 12/03/2022 6:52 [...] 72 hours) Date/Time Action Medication Dose Rate 12/02/223 $ New Bag/Syringe vancomycin (Vancocin) 2,500 mg in 500 mL NaCl IVPB Premix 2,500 mg 200 mL/hr No results for input(s): VANCORNDM, VANCTROUGH, VANCOPEAK in the last 90891 hours. Assessment/Recommendation: The patient is receiving intermittent doses of vancomycin with next level 12/03 2099. Recommend adjusting regimen based on that level. Please contact the [facility] pharmacy department ([phone]) with any questions. Jed Clancy, PharmD 12/03/2022 6:51 AM Resources: Vancomycin Protocol SECRETARY * Dat Clay MD - 12/03/2022 5:30 [...] per pharmacy Labs: Recent Labs Component Name 12/03/22241 WBC 37.1* HGB 6.8* HCT 22.3* Recent Labs Component Name 12/03/22241 NA 134* CL 106 CO2 18* BUN 30* CREATININE 2.91* No results for input(s): PT, PTT, INR in the last 99414 hours. Assessment/Plan: Leeroy Canales is a 32 [...] team Dat Clay MD 12/03/2022 5:30 AM SECRETARY * Xiang Younger, PharmD - 12/02/2022 10:42 [...] hours) Date/Time Action Medication Dose Rate 12/02/22 2113 $ New Bag/Syringe vancomycin (Vancocin) [...] monitor patient's renal function. Please contact the [facility] pharmacy department ([phone]) with any questions. Xiang Younger PharmD 12/02/2022 10:39 PM Resources: Vancomycin Protocol SECRETARY * Rafa Newman MD - 12/02/2022 10:34 [...] amputation. Rafa Newman MD 12/02/2022 10:42 PM SECRETARY documented in this encounter H&P Notes * Vtior Mendes MD - 12/03/2022 12:10 AM CST [...] input(s): PT, INR, APTT in the last 31485 hours. Cardiac Markers: Recent Labs Component Name 12/02/221954 TROPONINI 0.023 ABGs: No results for input(s): PHART, PO2ART, ZZO3ZZF, BEART in the last 31730 hours. Micro: Microbiology Results (Displays last 21 days for this encounter ONLY) Procedure Component Value - Date/Time CULTURE ANAEROBE [[id number]] Collected: 12/03/22 0027 Lab Status: No result Specimen: Body Fluid CULTURE FLUID+GRAM STAIN [[id number]] Collected: 12/03/227 Lab Status: No result Specimen: Body Fluid CULTURE BLOOD [[id number]] Collected: 12/02/222031 Lab Status: In process Specimen: Blood Peripheral Updated: 12/02/222035 CULTURE BLOOD [[id number]] Collected: 12/02/221999 Lab Status: In process Specimen: [...] Vitor Mendes MD Internal Medicine, PGY1 Pager SECRETARY Associated attestation - Levi Cooper MD - 12/04/2022 5:51 PM LAW SECRETARY Medical ICU Attending Note Date of Service: [...] results for input(s): PT in the last 08703 hours. No results for input(s): INR in the last 97763 hours. Recent Labs Component Name 12/04/22 1605 [...] Intentional overdose of drug in tablet form ([facility]) POA: Unknown Severe recurrent major 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 psychotic features ([facility]) POA: Unknown PTSD (post-traumatic stress disorder) POA: [...] for determining treatment decisions. Levi Cooper MD [employer] of Emergency Medicine Division of Pulmonary, Critical Care and Sleep Medicine [facility] documented in this encounter Consult Notes * Austyn Menon, JIMMIE - 12/12/2022 10:00 AM CSTAssociated Order(s): IP CONSULT TO LIBRARY TECHNICAL ASSISTANT Inpatient Icing Machine Operator Note Today's Date: 12/12/22 Leeroy Canales is [...] test strips, and alcohol swabs received from [facility] outpatient pharmacy. Reviewed how to use glucometer [...] patient's care. Austyn Menon RN, , GCNS, [facility] Icing Machine Operator SECRETARY * Brittney Bell MD - 12/11/2022 12:37 PM CSTAssociated Order(s): IP CONSULT TO PSYCHIATRY [facility] Consult Psychiatry History and Physical Name: Leeroy Canales Age: [age] year old Date of : 1990 Location: [facility] Reason for consult: depression Level of consult: [...] Did not report increased tearfulness. Collateral: GAYE BEAL-[phone]: She last saw her yesterday. She seems [...] Hospitalization: 07/2022 seen by CL service at [facility] after suicide attempt on multiple medications Previous [...] Type 2 diabetes mellitus without complications (CMS/HCC) Allergies No Known Allergies Family Medical History: [...] ??C) Oral 93 18 100 % -- 12/10/22 1956 137/75 97.4 ??F (36.3 ??C) Oral [...] QTC Calculation (Bezet) 470 ms Calculated P Hensel 44 degrees Calculated R Hensel 14 degrees Calculated T Hensel 23 degrees Interpretation EKG NORMAL SINUS RHYTHM NORMAL ECG WHEN COMPARED WITH ECG OF 21-aug-2022 NO SIGNIFICANT CHANGE WAS FOUND Confirmed by HIRAL HIGGINS MD ([id number]) on 12/09/2022 1:25:51 PM TFT: No results for input(s): TSH, T3, T3FREE, T4, T4FREE in the last 50179 hours. A1c: Recent Labs Component Name 12/02/222031 HGBA1C 6.7* EAG 146 Lipid: Recent Labs Component Name 12/02/222032 CHOL 111 TRIG 143 HDL 8* LDLCALC 74 Other: BAL: No results for input(s): ETOH, ETHANOL, ETHANOLCALC in the last 65110 hours. Serum Acetaminophen: No results for input(s): ACETAMINO in the last 61117 hours. Serum Salicylate:No results for input(s): SALICYLATE in the last 29590 hours. Urine Drug Screen: No results for input(s): LABAMPH, AMPHETUR, XDSAALSIO0IH, LABBARB, BARBITURATUR, LABBENZ, BENZODIAZUR, LABCANN, THCUR, COCAINE, COCAINEUR, COCAINESCRN, METHADONE, METHADONEUR, LABOPIA, OPIATES, OPIOIDS, OPIATESUR, FENTANYL, FENT, FENTUR, FENTURSCN, LABPHEN, PCPUR, SZXDWY3XB in the last 80941 hours. Assessment: Leeroy Canales is a 32 [...] seen by attending tomorrow. Brittney Bell MD SECRETARY Associated attestation - Marko Case MD - 12/11/2022 3:23 PM LAW SECRETARY I have discussed the following case with the resident, Dr. Bell, and agree with their documented assessment and plan. Date of Service: 12/11/2022 Marko Case MD Psychiatry * Jenifer Duenas MD - 12/06/2022 2:24 PM CSTAssociated Order(s): IP CONSULT TO INFECTIOUS DISEASES Images from the original note were not included. [facility] Infectious Diseases Consultation Patient's Primary Care [...] results for input(s): CDIFFTOXINAB in the last 64044 hours. No results for input(s): SEDRATE in the last 98149 hours. No results for input(s): CK in the last 59466 hours. .No results for input(s): VANCOTROUGH, VANCOPEAK, VANCSERIES in the last 13116 hours. Invalid input(s): KVNGORAND Recent Labs Component Name 12/02/22203108/22/22316 HGBA1C 6.7* 11.7* Recent Labs Component Name 12/03/22 1659 PHUA 5.0 UROBILINUA Negative RBCUA 11-20* No results for input(s): FERRITIN in the last 94215 hours. Recent Labs Component Name 12/02/222040 CRP 25.2* No results for input(s): PROCALCITON in the last 52997 hours. Recent Labs Component Name 12/02/221954 BNP [...] conveyed to Med- 2. Jenifer Duenas MD [facility] infectious Diseases team-2 SECRETARY * Meera Gonsalez RD/RAFAEL - 12/03/2022 1:10 PM CSTAssociated Order(s): IP [...] Pain affecting intake: No Estimated Needs: KCAL: 6941-6552 (30-35 kcal/kg IBW) wound Protein (g): 95 (1.5 g/kg IBW) Fluid (ml): 1 ml/kcal Needs based on: (45.5kg) Recommended Access Route: PO Laboratory values: Recent Labs Component Name 12/03/22 0242 12/02/22 1955 08/25/22 0315 08/22/22 0317 08/21/22 0847 BUN 30* 27* 13 - 7 [...] Goal Progress: New goal established Ascom: 4534 SECRETARY * Graeme Rodgers MD - 12/02/2022 10:31 PM CST Images from the original note were not included. [facility] Vascular Surgery Consult Note Name: Leeroy Erik Canales : 1990 Date of Service: 12/02/22 [...] 71.3* 88.2 88.0 Recent Labs Component Name 12/02/22195408/25/225 08/24/22 1404 08/24/22 0725 08/23/22 0314 08/22/22316 NA 139 - - - - - [...] input(s): PROTIME, INR, PTT in the last 71052 hours. No results for input(s): PHART, PO2ART, QDP1LMG, BEART in the last 91892 hours. No intake/output data recorded. Imaging: No [...] been seen and discussed with my in greenhouse staff and attending physician Dr. Rodgers. Radha García DO Resident Physician [facility] Department of Surgery 12/02/2022 10:31 PM Attending [...] Date of service: 12/02/2022 Graeme Rodgers MD SECRETARY documented in this encounter OR Notes * Brief Op Note - Tyrel Gilliam MD - 12/05/2022 3:05 PM CST Brief Op Note Procedure: AMPUTATION ABOVE LEFT KNEE Patient Name: Leeroy Canales Date of Service: 12/05/2022 Pre-Op Diagnosis: Gangrene Post-Op Diagnosis: left lower extremity infection Surgeon(s) and Role: * Graeme Rodgers MD - Primary * Tyrel Gilliam MD - Resident - Assisting Resolution Analyst(s): Mynor Vargas MD - resident Anesthesia Type: [...] implants in log * Tyrel Gilliam MD SECRETARY * Operative - Graeme Rodgers MD - [...] of service: 12/05/2022 Graeme Rodgers MD CM/hanh .[id number] Doc ID: [id number] Voice Job ID: [id number] SECRETARY * Operative - Graeme Rodgers MD - 12/02/2022 11:39 PM CST Operative Report NAME: LEEROY CANALES : 1990 AGE: 32 PROC DATE: 12/02/2022 SEX: F SURGEON: Rafa Newman MD ATTENDING: Graeme Rodgers M.D. METAL CONTAINER MAKER: Rafa Newman M.D., resident physician PREOPERATIVE DIAGNOSIS: [...] with Betadine-soaked Kerlix, ABDs, Kerlix, and an Agbe bandage. The patient tolerated the procedure well [...] Date of service: 12/02/2022 Graeme Rodgers MD JD/sri .[id number] Doc ID: [id number] Voice Job ID: [id number] SECRETARY * Brief Op Note - Rafa Newman MD - 12/02/2022 11:20 PM CST Brief Op Note Procedure: LEFT ANKLE DISARTICULATION LEVEL 2 @ 2220 Patient Name: Leeroy Canales Date of Service: 12/02/2022 Pre-Op Diagnosis: Gangrene (CMS/HCC) [I96] Post-Op Diagnosis: Same Surgeon(s) and Role: * Graeme Rodgers MD - Primary * Rafa Newman MD - Resident - Assisting Resolution Analyst(s): Anesthesia Type: general ETT Complications: none Findings: Gross purulence to level of ankle, well perfused tissue. Wound left open, dressed with surgicel, betadine soaked Kerlix. EBL: minimal blood loss Urine Output : 0cc IV Fluid Intake: Per anesthesia Drains: * No LDAs found * Specimen(s): * No specimens in log * Implant(s): * No implants in log * Rafa Newman MD SECRETARY documented in this encounter ED Notes * Jeanna Miller RN - 12/02/2022 10:52 PM CST Report given to surgery RN. SECRETARY * Himanshu Espino MD - 12/02/2022 8:26 [...] Patient reports her sister is her main caster operator and home health care is not involved. [...] GENERAL SURGERY ??? EKG 12-LEAD ??? Tdap (eznxghe-pbqrpmyrdp-wmqih pertussis) (Boostrix) (7y+) injection 0.5 mL ??? [...] mL D5W IVPB (0 mg Intravenous Stopped 12/02/222213) glucose (Diabetic Use) (Dex4 Glucose) oral liquid [...] (has no administration in time range) Tdap (nueoxcm-rpmfbdphjh-fxbks pertussis) (Boostrix) (7y+) injection 0.5 mL (0.5 [...] Ox: Sat: 94% on RA; Interpretation: WNL library monitor: SR, nl rate, no ectopy Consults: Findings [...] admit to MICU, patient amenable to plan. 2299- Patient taken to OR prior to admission order being placed. Critical care: No Disposition: Taken to OR prior to admission order being placed. Clinical Impression: 1. Hypoxia 2. Swelling of left foot 3. Left foot infection By signing my name below, IMary , attfarnaz that this documentation has been prepared under the direction and in the presence of Dr. Espino. Signed: Coretta Greer. By signing my name below, I, Angi Garvey , attfarnaz that this documentation has been prepared under [...] and complete. Electronically signed: Dr. Himanshu Espino SECRETARY * Trisha Evans PA-C - 12/02/2022 6:58 PM CST Bed: [facility] Expected date: Expected time: Means of arrival: Comments: Juancho Canales SECRETARY * Harpreet Roth - 12/02/2022 6:56 PM CST Pt present in ED waiting area att. SECRETARY * Teri Oleary RN - 12/02/2022 6:34 PM CST Pt presents with c/o blisters/sores to right foot which is draining clear drainage with foul odor for 1 week. Pedal pulse present. Strong odor present. See media for images. SECRETARY * Harpreet Roth - 12/02/2022 5:36 PM CST SHIRA Williamson, and Toñito Hensley, informed of the pt's O2 saturation. SECRETARY documented in this encounter Miscellaneous Notes * Coding Query - Levi Cooper MD - 12/04/2022 1:23 PM CST DOCUMENTATION CLARIFICATION REQUEST TO: Dr. Cooper FROM: Hiral RAYMUNDO RN CCDS Email: [email or web address] Please clarify and document if the patient [...] organism. Will include this in my documentation. SECRETARY documented in this encounter Plan of Treatment Upcoming Encounters Date Type Department Care Team (Late st Contact Info) Description 11/22/2024 1:30 PM LAW SECRETARY Office Visit [facility] - Infectious Disease [address] [place] [address], [place] [address] Kash Ha MD [address] [place] [phone] Pending Results Name Type Priority Associated Diagnoses Date/Time TRANSFUSE RED BLOOD CELL LEUKOREDUCED UNIT(S), 1 Units NSG BLD TRANSFUSION Routine 12/03/2022 6:10 AM LAW SECRETARY TRANSFUSE RED BLOOD CELL LEUKOREDUCED UNIT(S) NSG BLD TRANSFUSION Routine 12/03/2022 6 :05 AM LAW SECRETARY documented as of this encounter Procedures Procedure Name Priority Date/Time Associated Diagnosis Comments GLUCOSE - POINT OF CARE Routine 12/12/2022 10:29 AM LAW SECRETARY GLUCOSE - POINT OF CARE Routine 12/12/2022 8:51 AM LAW SECRETARY CBC W AUTO DIFFERENTIAL Routine 12/12/2022 1:44 AM LAW SECRETARY BASIC METABOLIC PANEL (CALCIUM TOTAL) Routine 12/12/2022 1:44 AM LAW SECRETARY GLUCOSE - POINT OF CARE Routine 12/11/2022 11:13 PM LAW SECRETARY GLUCOSE - POINT OF CARE Routine 12/11/2022 8:44 PM LAW SECRETARY GLUCOSE - POINT OF CARE Routine 12/11/2022 4:17 PM LAW SECRETARY GLUCOSE - POINT OF CARE Routine 12/11/2022 2:34 PM LAW SECRETARY GLUCOSE - POINT OF CARE Routine 12/11/2022 12:32 PM LAW SECRETARY GLUCOSE - POINT OF CARE Routine 12/11/2022 7:47 AM LAW SECRETARY GLUCOSE - POINT OF CARE Routine 12/11/2022 4:05 AM LAW SECRETARY RBC MORPHOLOGY Routine 12/11/2022 12:20 AM LAW SECRETARY CBC W AUTO DIFFERENTIAL Routine 12/11/2022 12:20 AM LAW SECRETARY BASIC METABOLIC PANEL (CALCIUM TOTAL) Routine 12/11/2022 12:20 AM LAW SECRETARY GLUCOSE - POINT OF CARE Routine 12/10/2022 11:39 PM LAW SECRETARY GLUCOSE - POINT OF CARE Routine 12/10/2022 7:54 PM LAW SECRETARY GLUCOSE - POINT OF CARE Routine 12/10/2022 4:15 PM LAW SECRETARY CARDIAC EKG ORDER 12/10/2022 12: 04 PM LAW SECRETARY GLUCOSE - POINT OF CARE Routine 12/10/2022 11:36 AM LAW SECRETARY GLUCOSE - POINT OF CARE Routine 12/10/2022 8:59 AM LAW SECRETARY GLUCOSE - POINT OF CARE Routine 12/10/2022 5:24 AM LAW SECRETARY GLUCOSE - POINT OF CARE Routine 12/10/2022 12:40 AM LAW SECRETARY DIFFERENTIAL MANUAL Routine 12/10/2022 1 2:36 AM LAW SECRETARY CBC W AUTO DIFFERENTIAL Routine 12/10/2022 12:36 AM LAW SECRETARY BASIC METABOLIC PANEL (CALCIUM TOTAL) Routine 12/10/2022 12:36 AM LAW SECRETARY GLUCOSE - POINT OF CARE Routine 12/09/2022 8:51 PM LAW SECRETARY GLUCOSE - POINT OF CARE Routine 12/09/2022 4:07 PM LAW SECRETARY GLUCOSE - POINT OF CARE Routine 12/09/2022 12:58 PM LAW SECRETARY GLUCOSE - POINT OF CARE Routine 12/09/2022 7:59 AM LAW SECRETARY GLUCOSE - POINT OF CARE Routine 12/09/2022 4:47 AM LAW SECRETARY DIFFERENTIAL MANUAL Routine 12/09/2022 1 :29 AM LAW SECRETARY CBC W AUTO DIFFERENTIAL Routine 12/09/2022 1:29 AM LAW SECRETARY BASIC METABOLIC PANEL (CALCIUM TOTAL) Routine 12/09/2022 1:29 AM LAW SECRETARY GLUCOSE - POINT OF CARE Routine 12/09/2022 12:47 AM LAW SECRETARY GLUCOSE - POINT OF CARE Routine 12/08/2022 9:39 PM LAW SECRETARY GLUCOSE - POINT OF CARE Routine 12/08/2022 5:14 PM LAW SECRETARY VANCOMYCIN LEVEL RANDOM Timed 12/08/2022 12:56 PM LAW SECRETARY GLUCOSE - POINT OF CARE Routine 12/08/2022 11:22 AM LAW SECRETARY GLUCOSE - POINT OF CARE Routine 12/08/2022 7:43 AM LAW SECRETARY GLUCOSE - POINT OF CARE Routine 12/08/2022 4:20 AM LAW SECRETARY DIFFERENTIAL MANUAL Routine 12/08/2022 3 :31 AM LAW SECRETARY CBC W AUTO DIFFERENTIAL Routine 12/08/2022 3:31 AM LAW SECRETARY BASIC METABOLIC PANEL (CALCIUM TOTAL) Routine 12/08/2022 3:31 AM LAW SECRETARY GLUCOSE - POINT OF CARE Routine 12/07/2022 11:50 PM LAW SECRETARY GLUCOSE - POINT OF CARE Routine 12/07/2022 9:25 PM LAW SECRETARY GLUCOSE - POINT OF CARE Routine 12/07/2022 4:53 PM LAW SECRETARY GLUCOSE - POINT OF CARE Routine 12/07/2022 11:51 AM LAW SECRETARY GLUCOSE - POINT OF CARE Routine 12/07/2022 11:29 AM LAW SECRETARY GLUCOSE - POINT OF CARE Routine 12/07/2022 8:00 AM LAW SECRETARY BASIC METABOLIC PANEL (CALCIUM TOTAL) Routine 12/07/2022 5:34 AM LAW SECRETARY VANCOMYCIN LEVEL RANDOM Timed 12/07/2022 5:34 AM LAW SECRETARY DIFFERENTIAL MANUAL Routine 12/07/2022 5 :33 AM LAW SECRETARY CBC W AUTO DIFFERENTIAL Routine 12/07/2022 5:33 AM LAW SECRETARY GLUCOSE - POINT OF CARE Routine 12/07/2022 5:15 AM LAW SECRETARY GLUCOSE - POINT OF CARE Routine 12/07/2022 4:50 AM LAW SECRETARY GLUCOSE - POINT OF CARE Routine 12/07/2022 4:19 AM LAW SECRETARY PREPARE RBC LEUKOREDUCED UNIT Routine 12/07/2022 1:17 AM LAW SECRETARY GLUCOSE - POINT OF CARE Routine 12/07/2022 12:04 AM LAW SECRETARY GLUCOSE - POINT OF CARE Routine 12/06/2022 8:10 PM LAW SECRETARY BACTERIAL VAGINOSIS RAPID TEST Routine 12/06/2022 6:20 PM LAW SECRETARY GLUCOSE - POINT OF CARE Routine 12/06/2022 5:11 PM LAW SECRETARY GLUCOSE - POINT OF CARE Routine 12/06/2022 11:50 AM LAW SECRETARY GLUCOSE - POINT OF CARE Routine 12/06/2022 7:32 AM LAW SECRETARY GLUCOSE - POINT OF CARE Routine 12/06/2022 4:05 AM LAW SECRETARY DIFFERENTIAL MANUAL Routine 12/06/2022 4 :01 AM LAW SECRETARY CBC W AUTO DIFFERENTIAL Routine 12/06/2022 4:01 AM LAW SECRETARY BASIC METABOLIC PANEL (CALCIUM TOTAL) Routine 12/06/2022 4:01 AM LAW SECRETARY GLUCOSE - POINT OF CARE Routine 12/06/2022 12:17 AM LAW SECRETARY GLUCOSE - POINT OF CARE Routine 12/05/2022 8:20 PM LAW SECRETARY CHLAMYDIA + GC AMPLIFIED PROBE Routine 12/05/2022 6:19 PM LAW SECRETARY CULTURE BLOOD Timed 12/05/2022 5:04 PM LAW SECRETARY CBC W/O DIFFERENTIAL STAT 12/05/2022 5:03 PM LAW SECRETARY GLUCOSE - POINT OF CARE Routine 12/05/2022 5:02 PM LAW SECRETARY PATHOLOGY TISSUE Routine 12/05/2022 3:17 PM LAW SECRETARY Gangrene (HCC) HCG URINE QUALITATIVE - POCT (IP) INTERFACED Routine 12/05/2022 1:46 PM LAW SECRETARY HCG URINE QUAL POCT NOTIFICATION STAT 12/05/2022 1:39 PM LAW SECRETARY Preop examination GLUCOSE - POINT OF CARE Routine 12/05/2022 12:22 PM LAW SECRETARY DIFFERENTIAL MANUAL Routine 12/05/2022 1 0:06 AM LAW SECRETARY CBC W AUTO DIFFERENTIAL Routine 12/05/2022 10:06 AM LAW SECRETARY BASIC METABOLIC PANEL (CALCIUM TOTAL) Routine 12/05/2022 10:06 AM LAW SECRETARY VANCOMYCIN LEVEL RANDOM Routine 12/05/2022 10:06 AM LAW SECRETARY GLUCOSE - POINT OF CARE Routine 12/05/2022 8:08 AM LAW SECRETARY GLUCOSE - POINT OF CARE Routine 12/05/2022 2:17 AM LAW SECRETARY GLUCOSE - POINT OF CARE Routine 12/04/2022 11:15 PM LAW SECRETARY GLUCOSE - POINT OF CARE Routine 12/04/2022 8:47 PM LAW SECRETARY GLUCOSE - POINT OF CARE Routine 12/04/2022 5:10 PM LAW SECRETARY BASIC METABOLIC PANEL (CALCIUM TOTAL) Routine 12/04/2022 4:05 PM LAW SECRETARY MAGNESIUM BLOOD Routine 12/04/2022 4:05 PM LAW SECRETARY GLUCOSE - POINT OF CARE Routine 12/04/2022 11:40 AM LAW SECRETARY GLUCOSE - POINT OF CARE Routine 12/04/2022 8:09 AM LAW SECRETARY OT EVAL AND TREAT Routine 12/04/2022 6:3 2 AM LAW SECRETARY PT EVAL AND TREAT Routine 12/04/2022 6:3 2 AM LAW SECRETARY CBC W AUTO DIFFERENTIAL Routine 12/04/2022 3:58 AM LAW SECRETARY BASIC METABOLIC PANEL (CALCIUM TOTAL) Routine 12/04/2022 3:58 AM LAW SECRETARY PHOSPHORUS BLOOD Routine 12/04/2022 3:58 AM LAW SECRETARY MAGNESIUM BLOOD Routine 12/04/2022 3:58 AM LAW SECRETARY VANCOMYCIN LEVEL RANDOM Timed 12/04/2022 3:58 AM LAW SECRETARY GLUCOSE - POINT OF CARE Routine 12/03/2022 11:18 PM LAW SECRETARY BASIC METABOLIC PANEL (CALCIUM TOTAL) Timed 12/03/2022 11:13 PM LAW SECRETARY DIFFERENTIAL MANUAL STAT 12/03/2022 6 :57 PM LAW SECRETARY CBC W AUTO DIFFERENTIAL STAT 12/03/2022 6:57 PM LAW SECRETARY LACTIC ACID BLOOD STAT 12/03/2022 6:5 7 PM LAW SECRETARY VANCOMYCIN LEVEL RANDOM Routine 12/03/2022 6:57 PM LAW SECRETARY BLOOD GASES SUZANNE + COOX PANEL STAT 12/03/2022 6:56 PM LAW SECRETARY GLUCOSE - POINT OF CARE Routine 12/03/2022 6:22 PM LAW SECRETARY BASIC METABOLIC PANEL (CALCIUM TOTAL) STAT 12/03/2022 5:07 PM LAW SECRETARY URINALYSIS REFLEX TO MICROSCOPIC NO CULTURE STAT 12/03/2022 4:59 PM LAW SECRETARY UREA NITROGEN URINE RANDOM Routine 12/03/2022 4:59 PM LAW SECRETARY LYTES (NA K CL) URINE RANDOM PANEL STAT 12/03/2022 4:59 PM LAW SECRETARY CREATININE URINE RANDOM STAT 12/03/2022 4:59 PM LAW SECRETARY GLUCOSE - POINT OF CARE Routine 12/03/2022 1:29 PM LAW SECRETARY HEMOGLOBIN Routine 12/03/2022 9:43 AM LAW SECRETARY GLUCOSE - POINT OF CARE Routine 12/03/2022 7:40 AM LAW SECRETARY PREPARE RBC LEUKOREDUCED UNIT Routine 12/03/2022 5:34 AM LAW SECRETARY BLOOD TYPE VERIFICATION Routine 12/03/2022 4:10 AM LAW SECRETARY EKG 12-LEAD STAT 12/03/2022 3:00 AM LAW SECRETARY Hypoxia TYPE + SCREEN PANEL STAT 12/03/2022 2 :42 AM LAW SECRETARY DIFFERENTIAL MANUAL Routine 12/03/2022 2 :42 AM LAW SECRETARY CBC W AUTO DIFFERENTIAL Routine 12/03/2022 2:42 AM LAW SECRETARY BASIC METABOLIC PANEL (CALCIUM TOTAL) Routine 12/03/2022 2:42 AM LAW SECRETARY PHOSPHORUS BLOOD Routine 12/03/2022 2:42 AM LAW SECRETARY MAGNESIUM BLOOD Routine 12/03/2022 2:42 AM LAW SECRETARY GLUCOSE - POINT OF CARE Routine 12/03/2022 1:07 AM LAW SECRETARY GLUCOSE - POINT OF CARE Routine 12/03/2022 12:30 AM LAW SECRETARY CULTURE FLUID+GRAM STAIN Routine 12/03/2022 12:27 AM LAW SECRETARY CULTURE ANAEROBE Routine 12/03/2022 12:2 7 AM LAW SECRETARY PATHOLOGY TISSUE Routine 12/03/2022 12:1 6 AM LAW SECRETARY Gangrene (HCC) AMPUTATION BELOW-KNEE 12/02/2022 11:39 PM LAW SECRETARY Gangrene (HCC) GLUCOSE - POINT OF CARE Routine 12/02/2022 11:10 PM LAW SECRETARY C-REACTIVE PROTEIN MONICA 12/02/2022 8: 41 PM LAW SECRETARY LIPID PROFILE STAT 12/02/2022 8:33 PM LAW SECRETARY HEMOGLOBIN A1C MONICA 12/02/2022 8:32 PM LAW SECRETARY CULTURE BLOOD Timed 12/02/2022 8:32 PM LAW SECRETARY LACTIC ACID BLOOD REFLEX TO REPEAT STAT 12/02/2022 8:00 PM LAW SECRETARY CULTURE BLOOD Timed 12/02/2022 8:00 PM LAW SECRETARY XR FOOT LEFT 3VW OR MORE STAT 12/02/2022 7:56 PM LAW SECRETARY Swelling of left foot TROPONIN I STAT 12/02/2022 7:55 PM LAW SECRETARY ERYTHROCYTE SEDIMENTATION RATE Add on 12/02/2022 7:55 PM LAW SECRETARY DIFFERENTIAL MANUAL STAT 12/02/2022 7 :55 PM LAW SECRETARY CBC W AUTO DIFFERENTIAL STAT 12/02/2022 7:55 PM LAW SECRETARY B-TYPE NATRIURETIC PEPTIDE STAT 12/02/2022 7:55 PM LAW SECRETARY COMPREHENSIVE METABOLIC PANEL STAT 12/02/2022 7:55 PM LAW SECRETARY HCG BETA BLOOD QUANTITATIVE STAT 12/02/2022 7:55 PM LAW SECRETARY XR CHEST 2VW STAT 12/02/2022 7:31 PM LAW SECRETARY Hypoxia documented in this encounter Results * GLUCOSE - POINT OF CARE (12/12/2022 10:29 AM LAW SECRETARY) Glucose WB/POC 104 70 - 115 mg/dL 12/12/2022 10:32 AM LAW SECRETARY [facility] Specimen Type Cap Fingerstick 2022 10:32 AM LAW SECRETARY [facility] Blood BLOOD SPECIMEN / Unknown 12/12/2022 10:29 AM LAW SECRETARY 12/12/2022 10:31 AM LAW SECRETARY Amanda Georges MD LAB - POINT OF CARE ORDERABLES [address] [address], [facility] [phone] * GLUCOSE - POINT OF CARE (12/12/2022 8:51 AM LAW SECRETARY) Glucose WB/POC 91 70 - 115 mg/dL 12/12/2022 8:56 AM [facility] Specimen Type Cap Fingerstick 2022 8:56 AM [facility] Blood BLOOD SPECIMEN / Unknown 12/12/2022 8:51 AM LAW SECRETARY 12/12/2022 8:56 AM LAW SECRETARY Amanda Georges MD LAB - POINT OF CARE ORDERABLES Performing Organization Address [facility]/ZIP Co de Phone Number [address] [address], [facility] [phone] * (ABNORMAL) CBC W AUTO DIFFERENTIAL (12/12/2022 1:44 AM LAW SECRETARY) WBC 12.9(H) 3.5 - 10.5 10? 3 /uL 12/12/2022 2:18 AM [facility] RBC 3.29(L) 3.80 - 5.20 10? 6 /uL 12/12/2022 2:18 AM [facility] Hemoglobin 7.5(L) 12.0 - 15.6 g/dL 12/12/2022 2:18 AM [facility] Hematocrit 25.4(L) 35.0 - 45.0 % 12/12/2022 2:18 AM [facility] MCV 77.2(L) 80.7 - 98.3 fL 12/12/2022 2:18 AM [facility] MCH 22.8(L) 26.7 - 34.0 pg 12/12/2022 2:18 AM [facility] MCHC 29.5(L) 30.8 - 35.9 g/dL 12/12/2022 2:18 AM [facility] RDW-SD 54.5(H) 36.0 - 50.0 fL 12/12/2022 2:18 AM [facility] RDW-CV 22.0(H) 11.2 - 14.8 % 12/12/2022 2:18 AM [facility] Platelet Count 541(H) 150 - 400 10? 3 /uL 12/12/2022 2:18 AM [facility] MPV 8.7(L) 9.4 - 12.9 fL 12/12/2022 2:18 AM [facility] nRBC Absolute 0.07(H) 0 10? 3 /uL 12/12/2022 2:18 AM [facility] nRBC Auto 0.5(H) 0 /100 WBC 12/12/2022 2:18 AM [facility] Neutrophils % 65.4 35.0 - 70.0 % 12/12/2022 2:18 AM [facility] Lymphocytes % 24.6 20.0 - 43.0 % 12/12/2022 2:18 AM [facility] Monocytes % 5.8 5.0 - 13.0 % 12/12/2022 2:18 AM [facility] Eosinophils % 1.9 0.0 - 6.0 % 12/12/2022 2:18 AM [facility] Basophil % 0.3 0.0 - 2.0 % 12/12/2022 2:18 AM [facility] Neutrophils Absolute 8.40(H) 1.60 - 7.00 10? 3 /uL 12/12/2022 2:18 AM [facility] Lymphocyte Absolute 3.16 1.10 - 3.90 10? 3 /uL 12/12/2022 2:18 AM [facility] Monocytes Absolute 0.75 0.26 - 1.07 10? 3 /uL 12/12/2022 2:18 AM [facility] Eosinophils Absolute 0.25 0.00 - 0.47 10? 3 /uL 12/12/2022 2:18 AM [facility] Basophils Absolute 0.04 0.00 - 0.08 10? 3 /uL 12/12/2022 2:18 AM [facility] Immature Granulocytes % 2.0(H) 0.0 - 1.0 % 12/12/2022 2:18 AM [facility] Immature Granulocytes Absolute 0.26 12/12/2022 2:18 AM [facility] Blood BLOOD SPECIMEN / Unknown Lab Venipuncture / Unknown 12/12/2022 1:44 AM LAW SECRETARY 12/12/2022 2:10 AM LAW SECRETARY Levi Cooper MD LAB - HEMATOLO GY ORDERABLES [facility] [address] [place] [address], [facility] [phone] * (ABNORMAL) BASIC METABOLIC PANEL (CALCIUM TOTAL) (12/12/2022 1:44 AM [facility]) BUN 19 7 - 26 mg/dL 12/12/2022 2:39 AM [facility] Creatinine 1.12(H) 0.56 - 0.96 mg/dL 12/12/2022 2:39 AM [facility] Sodium 145 136 - 145 mmol/L 12/12/2022 2:39 AM [facility] Potassium 3.9 3.5 - 4.5 mmol/L 12/12/2022 2:39 AM [facility] Chloride 109(H) 98 - 107 mmol/L 12/12/2022 2:39 AM [facility] CO2 27 22 - 29 mmol/L 12/12/2022 2:39 AM [facility] Glucose 110 70 - 115 mg/dL 12/12/2022 2:39 AM [facility] Calcium 7.4(L) 8.4 - 10.2 mg/dL 12/12/2022 2:39 AM [facility] Anion Gap 13 8 - 18 12/12/2022 2:39 AM [facility] BUN/Creatinine Ratio 17 7 - 23 12/12/2022 2:39 AM [facility] Osmolality Calculated 303(H) 270 - 300 mOsm/kg 12/12/2022 2:39 AM [facility] eGFR by CKD-EPI 68(L) >=90 mL/min/1.7 3 m2 12/12/2022 2:39 AM [facility] Blood BLOOD SPECIMEN / Unknown Lab Venipuncture / Unknown 12/12/2022 1:44 AM LAW SECRETARY 12/12/2022 2:10 AM LAW SECRETARY Levi Cooper MD LAB - CHEMISTR Y ORDERABLES [facility] [address] [place] [address], [place] [phone] * (ABNORMAL) GLUCOSE - POINT OF CARE (12/11/2022 11:13 PM LAW SECRETARY) Glucose WB/POC 149(H) 70 - 115 mg/dL 12/11/2022 11:18 PM [facility] Specimen Type Cap Fingerstick 2022 11:18 PM LAW SECRETARY [facility] Blood BLOOD SPECIMEN / Unknown 12/11/2022 11:13 PM LAW SECRETARY 12/11/2022 11:18 PM LAW SECRETARY Amanda Georges MD LAB - POINT OF CARE ORDERABLES Performing Organization Address City/[facility]/ZIP Co de Phone Number [facility] [address] [place] [phone], [place] [phone] * (ABNORMAL) GLUCOSE - POINT OF CARE (12/11/2022 8:44 PM LAW SECRETARY) Glucose WB/POC 137(H) 70 - 115 mg/dL 12/11/2022 8:49 PM LAW SECRETARY [facility] Specimen Type Cap Fingerstick 2022 8:49 PM LAW SECRETARY [facility] Blood BLOOD SPECIMEN / Unknown 12/11/2022 8:44 PM LAW SECRETARY 12/11/2022 8:49 PM LAW SECRETARY Amanda Georges MD LAB - POINT OF CARE ORDERABLES [facility] [address] [place] [phone], [place] [phone] * (ABNORMAL) GLUCOSE - POINT OF CARE (12/11/2022 4:17 PM LAW SECRETARY) Glucose WB/POC 121(H) 70 - 115 mg/dL 12/11/2022 4:22 PM LAW SECRETARY [facility] Specimen Type Cap Fingerstick 2022 4:22 PM LAW SECRETARY [facility] Blood BLOOD SPECIMEN / Unknown 12/11/2022 4:17 PM LAW SECRETARY 12/11/2022 4:21 PM LAW SECRETARY Amanda Georges MD LAB - POINT OF CARE ORDERABLES [facility] [address] [place] [address], [place] [phone] * GLUCOSE - POINT OF CARE (12/11/2022 2:34 PM LAW SECRETARY) Glucose WB/POC 109 70 - 115 mg/dL 12/11/2022 2:39 PM LAW SECRETARY [facility] Specimen Type Cap Fingerstick 2022 2:39 PM LAW SECRETARY [facility] Blood BLOOD SPECIMEN / Unknown 12/11/2022 2:34 PM LAW SECRETARY 12/11/2022 2:39 PM LAW SECRETARY Amanda Georges MD LAB - POINT OF CARE ORDERABLES Performing Organization Address City/[facility]/ZIP Co de Phone Number [facility] [address] [place] [phone], [place] [phone] * GLUCOSE - POINT OF CARE (12/11/2022 12:32 PM LAW SECRETARY) Glucose WB/POC 97 70 - 115 mg/dL 12/11/2022 12:37 PM LAW SECRETARY [facility] Specimen Type Cap Fingerstick 2022 12:37 PM LAW SECRETARY [facility] Blood BLOOD SPECIMEN / Unknown 12/11/2022 12:32 PM LAW SECRETARY 12/11/2022 12:37 PM LAW SECRETARY Amanda Georges MD LAB - POINT OF CARE ORDERABLES [facility] [address] [place] [phone], [place] [phone] * GLUCOSE - POINT OF CARE (12/11/2022 7:47 AM LAW SECRETARY) Glucose WB/POC 88 70 - 115 mg/dL 12/11/2022 7:59 AM LAW SECRETARY [facility] Specimen Type Cap Fingerstick 2022 7:59 AM LAW SECRETARY [facility] Blood BLOOD SPECIMEN / Unknown 12/11/2022 7:47 AM LAW SECRETARY 12/11/2022 7:59 AM LAW SECRETARY Amanda Goerges MD LAB - POINT OF CARE ORDERABLES [facility] [address] [place] [phone], [facility] [phone] * GLUCOSE - POINT OF CARE (12/11/2022 4:05 AM LAW SECRETARY) Glucose WB/POC 104 70 - 115 mg/dL 12/11/2022 4:10 AM [facility] Specimen Type Cap Fingerstick 2022 4:10 AM [facility] Blood BLOOD SPECIMEN / Unknown 12/11/2022 4:05 AM LAW SECRETARY 12/11/2022 4:10 AM LAW SECRETARY Amanda Georges MD LAB - POINT OF CARE ORDERABLES [address] [id number], [facility] [phone] * (ABNORMAL) RBC MORPHOLOGY (12/11/2022 12:20 AM LAW SECRETARY) Pathologist [facility] Platelet Estimate Increased (A) Adequate 12/11/2022 3:51 AM [facility] Anisocytosis 1+(A) None 12/11/2022 3:51 AM [facility] Microcytes Occasiona l(A) None 12/11/2022 3:51 AM [facility] Macrocytosis Occasiona l(A) None 12/11/2022 3:51 AM [facility] Hypochromia Rare(A) None 12/11/2022 3:51 AM [facility] Polychromasia Few(A) None 12/11/2022 3:51 AM [facility] Schistocytes Occasiona l(A) None 12/11/2022 3:51 AM [facility] Blood BLOOD SPECIMEN / Unknown Lab Venipuncture / Unknown 12/11/2022 12:20 AM LAW SECRETARY 12/11/2022 3:03 AM LAW SECRETARY Levi Cooper MD LAB - HEMATOLO GY ORDERABLES [facility] [address] [place] [address], [facility] [phone] * (ABNORMAL) CBC W AUTO DIFFERENTIAL (12/11/2022 12:20 AM [facility]) WBC 12.5(H) 3.5 - 10.5 10? 3 /uL 12/11/2022 3:25 AM [facility] RBC 3.74(L) 3.80 - 5.20 10? 6 /uL 12/11/2022 3:25 AM [facility] Hemoglobin 8.4(L) 12.0 - 15.6 g/dL 12/11/2022 3:25 AM [facility] Hematocrit 30.2(L) 35.0 - 45.0 % 12/11/2022 3:25 AM [facility] MCV 80.7 80.7 - 98.3 fL 12/11/2022 3:25 AM [facility] MCH 22.5(L) 26.7 - 34.0 pg 12/11/2022 3:25 AM [facility] MCHC 27.8(L) 30.8 - 35.9 g/dL 12/11/2022 3:25 AM [facility] RDW-SD 58.4(H) 36.0 - 50.0 fL 12/11/2022 3:25 AM [facility] RDW-CV 22.1(H) 11.2 - 14.8 % 12/11/2022 3:25 AM [facility] Platelet Count 532(H) 150 - 400 10? 3 /uL 12/11/2022 3:25 AM [facility] MPV 9.5 9.4 - 12.9 fL 12/11/2022 3:25 AM [facility] nRBC Absolute 0.06(H) 0 10? 3 /uL 12/11/2022 3:25 AM [facility] nRBC Auto 0.5(H) 0 /100 WBC 12/11/2022 3:25 AM [facility] Neutrophils % 65.5 35.0 - 70.0 % 12/11/2022 3:25 AM [facility] Lymphocytes % 22.2 20.0 - 43.0 % 12/11/2022 3:25 AM [facility] Monocytes % 5.5 5.0 - 13.0 % 12/11/2022 3:25 AM [facility] Eosinophils % 2.2 0.0 - 6.0 % 12/11/2022 3:25 AM [facility] Basophil % 0.4 0.0 - 2.0 % 12/11/2022 3:25 AM [facility] Neutrophils Absolute 8.15(H) 1.60 - 7.00 10? 3 /uL 12/11/2022 3:25 AM [facility] Lymphocyte Absolute 2.77 1.10 - 3.90 10? 3 /uL 12/11/2022 3:25 AM [facility] Monocytes Absolute 0.69 0.26 - 1.07 10? 3 /uL 12/11/2022 3:25 AM [facility] Eosinophils Absolute 0.27 0.00 - 0.47 10? 3 /uL 12/11/2022 3:25 AM [facility] Basophils Absolute 0.05 0.00 - 0.08 10? 3 /uL 12/11/2022 3:25 AM [facility] Immature Granulocytes % 4.2(H) 0.0 - 1.0 % 12/11/2022 3:25 AM [facility] Immature Granulocytes Absolute 0.52 12/11/2022 3:25 AM [facility] Blood BLOOD SPECIMEN / Unknown Lab Venipuncture / Unknown 12/11/2022 12:20 AM LAW SECRETARY 12/11/2022 3:03 AM LAW SECRETARY Levi Cooper MD LAB - HEMATOLO GY ORDERABLES [address] [address], [facility] [phone] * (ABNORMAL) BASIC METABOLIC PANEL (CALCIUM TOTAL) (12/11/2022 12:20 AM LAW SECRETARY) BUN 19 7 - 26 mg/dL 12/11/2022 3:31 AM [facility] Creatinine 1.38(H) 0.56 - 0.96 mg/dL 12/11/2022 3:31 AM [facility] Sodium 144 136 - 145 mmol/L 12/11/2022 3:31 AM [facility] Potassium 3.6 3.5 - 4.5 mmol/L 12/11/2022 3:31 AM [facility] Chloride 109(H) 98 - 107 mmol/L 12/11/2022 3:31 AM [facility] CO2 25 22 - 29 mmol/L 12/11/2022 3:31 AM [facility] Glucose 114 70 - 115 mg/dL 12/11/2022 3:31 AM [facility] Calcium 8.0(L) 8.4 - 10.2 mg/dL 12/11/2022 3:31 AM [facility] Anion Gap 14 8 - 18 12/11/2022 3:31 AM [facility] BUN/Creatinine Ratio 14 7 - 23 12/11/2022 3:31 AM [facility] Osmolality Calculated 301(H) 270 - 300 mOsm/kg 12/11/2022 3:31 AM [facility] eGFR by CKD-EPI 53(L) >=90 mL/min/1.7 3 m2 12/11/2022 3:31 AM [facility] Blood BLOOD SPECIMEN / Unknown Lab Venipuncture / Unknown 12/11/2022 12:20 AM LAW SECRETARY 12/11/2022 3:03 AM LAW SECRETARY Levi Cooper MD LAB - CHEMISTR Y ORDERABLES [address] [address], [place] [phone] * GLUCOSE - POINT OF CARE (12/10/2022 11:39 PM LAW SECRETARY) Glucose WB/POC 110 70 - 115 mg/dL 12/10/2022 11:44 PM LAW SECRETARY [facility] Specimen Type Cap Fingerstick 2022 11:44 PM LAW SECRETARY [facility] Blood BLOOD SPECIMEN / Unknown 12/10/2022 11:39 PM LAW SECRETARY 12/10/2022 11:44 PM LAW SECRETARY Amanda Georges MD LAB - POINT OF CARE ORDERABLES [address] [address], [facility] [phone] * GLUCOSE - POINT OF CARE (12/10/2022 7:54 PM LAW SECRETARY) Glucose WB/POC 108 70 - 115 mg/dL 12/10/2022 7:59 PM LAW SECRETARY [facility] Specimen Type Cap Fingerstick 2022 7:59 PM LAW SECRETARY [facility] Blood BLOOD SPECIMEN / Unknown 12/10/2022 7:54 PM LAW SECRETARY 12/10/2022 7:59 PM LAW SECRETARY Amanda Georges MD LAB - POINT OF CARE ORDERABLES [address] [address], [place] [phone] * GLUCOSE - POINT OF CARE (12/10/2022 4:15 PM LAW SECRETARY) Glucose WB/POC 108 70 - 115 mg/dL 12/10/2022 4:20 PM LAW SECRETARY [facility] Specimen Type Cap Fingerstick 2022 4:20 PM LAW SECRETARY [facility] Blood BLOOD SPECIMEN / Unknown 12/10/2022 4:15 PM LAW SECRETARY 12/10/2022 4:20 PM LAW SECRETARY Amanda Georges MD LAB - POINT OF CARE ORDERABLES [address] [address], [place] [phone] * CARDIAC EKG ORDER (12/10/2022 12:04 PM LAW SECRETARY) Narrative 12/10/2022 12:04 PM LAW SECRETARY Ordered by an unspecified provider. Scanned Document CARDIAC SERVICES ORD ERABLES * GLUCOSE - POINT OF CARE (12/10/2022 11:36 AM LAW SECRETARY) Glucose WB/POC 111 70 - 115 mg/dL 12/10/2022 11:41 AM LAW SECRETARY [facility] Specimen Type Cap Fingerstick 2022 11:41 AM LAW SECRETARY [facility] Blood BLOOD SPECIMEN / Unknown 12/10/2022 11:36 AM LAW SECRETARY 12/10/2022 11:41 AM LAW SECRETARY Amanda Georges MD LAB - POINT OF CARE ORDERABLES Performing Organization Address City/[facility]/ZIP Co de Phone Number [address] [address], [place] [phone] * GLUCOSE - POINT OF CARE (12/10/2022 8:59 AM LAW SECRETARY) Glucose WB/POC 100 70 - 115 mg/dL 12/10/2022 9:03 AM LAW SECRETARY [facility] Specimen Type Cap Fingerstick 2022 9:03 AM LAW SECRETARY [facility] Blood BLOOD SPECIMEN / Unknown 12/10/2022 8:59 AM LAW SECRETARY 12/10/2022 9:03 AM LAW SECRETARY Amanda Georges MD LAB - POINT OF CARE ORDERABLES [address] [address], [place] [phone] * (ABNORMAL) GLUCOSE - POINT OF CARE (12/10/2022 5:24 AM LAW SECRETARY) Glucose WB/POC 126(H) 70 - 115 mg/dL 12/10/2022 5:29 AM [facility] Specimen Type Cap Fingerstick 2022 5:29 AM [facility] Blood BLOOD SPECIMEN / Unknown 12/10/2022 5:24 AM LAW SECRETARY 12/10/2022 5:29 AM LAW SECRETARY Branden Galindo MD LAB - POINT OF CARE ORDERABLES [facility] [address] [place] [address], [place] [phone] * (ABNORMAL) GLUCOSE - POINT OF CARE (12/10/2022 12:40 AM LAW SECRETARY) Glucose WB/POC 231(H) 70 - 115 mg/dL 12/10/2022 12:45 AM [facility] Specimen Type Cap Fingerstick 2022 12:45 AM [facility] Blood BLOOD SPECIMEN / Unknown 12/10/2022 12:40 AM LAW SECRETARY 12/10/2022 12:45 AM LAW SECRETARY Branden Galindo MD LAB - POINT OF CARE ORDERABLES [facility] [address] [place] [address], [place] [phone] * (ABNORMAL) DIFFERENTIAL MANUAL (12/10/2022 12:36 AM LAW SECRETARY) WBC (corrected for NRBC) 15.1 10? 3 /uL 12/10/2022 3:36 AM [facility] Total Cell Count 100 12/10/19 23 3:36 AM [facility] Neutrophils Absolute Manual 11.93(H) 1.60 - 7.00 10? 3 /uL 12/10/2022 3:36 AM [facility] Comment:(BANDS+SEGS) x WBC = NEUT # (ANC) Lymphocyte Absolute Manual 1.51 1.10 - 3.90 10? 3 /uL 12/10/2022 3:36 AM [facility] Monocytes Absolute Manual 0.60 0.26 - 1.07 10? 3 /uL 12/10/2022 3:36 AM [facility] Eosinophils Absolute Manual 0.60(H) 0.00 - 0.47 10? 3 /uL 12/10/2022 3:36 AM [facility] Band % Manual 1 0 - 10 % 12/10/2022 3:36 AM [facility] Neutrophil % Manual 78(H) 35 - 70 % 12/10/2022 3:36 AM [facility] Lymphocyte % Manual 10(L) 20 - 43 % 12/10/2022 3:36 AM [facility] Monocytes % Manual 4(L) 5 - 13 % 12/10/2022 3:36 AM [facility] Eosinophils % Manual 4 0 - 6 % 12/10/2022 3:36 AM [facility] Metamyelocyte % Manual 1(H) 0 % 12/10/2022 3:36 AM [facility] Myelocytes % Manual 2(H) 0 % 12/10/2022 3:36 AM [facility] Platelet Estimate Increased (A) Adequate 12/10/2022 3:36 AM [facility] Anisocytosis 1+(A) None 12/10/2022 3:36 AM [facility] Hypochromia Occasiona l(A) None 12/10/2022 3:36 AM [facility] Polychromasia 1+(A) None 12/10/2022 3:36 AM [facility] Schistocytes Occasiona l(A) None 12/10/2022 3:36 AM [facility] Blood BLOOD SPECIMEN / Unknown Lab Venipuncture / Unknown 12/10/2022 12:36 AM LAW SECRETARY 12/10/2022 1:42 AM LAW SECRETARY Levi Cooper MD LAB - HEMATOLO GY ORDERABLES [address] [address], [facility] [phone] * (ABNORMAL) CBC W AUTO DIFFERENTIAL (12/10/2022 12:36 AM LAW SECRETARY) WBC 15.1(H) 3.5 - 10.5 10? 3 /uL 12/10/2022 2:03 AM [facility] RBC 3.49(L) 3.80 - 5.20 10? 6 /uL 12/10/2022 2:03 AM [facility] Hemoglobin 8.0(L) 12.0 - 15.6 g/dL 12/10/2022 2:03 AM [facility] Hematocrit 26.9(L) 35.0 - 45.0 % 12/10/2022 2:03 AM [facility] MCV 77.1(L) 80.7 - 98.3 fL 12/10/2022 2:03 AM [facility] MCH 22.9(L) 26.7 - 34.0 pg 12/10/2022 2:03 AM [facility] MCHC 29.7(L) 30.8 - 35.9 g/dL 12/10/2022 2:03 AM [facility] RDW-SD 54.2(H) 36.0 - 50.0 fL 12/10/2022 2:03 AM [facility] RDW-CV 21.0(H) 11.2 - 14.8 % 12/10/2022 2:03 AM [facility] Platelet Count 619(H) 150 - 400 10? 3 /uL 12/10/2022 2:03 AM [facility] MPV 8.8(L) 9.4 - 12.9 fL 12/10/2022 2:03 AM [facility] nRBC Absolute 0.06(H) 0 10? 3 /uL 12/10/2022 2:03 AM [facility] nRBC Auto 0.4(H) 0 /100 WBC 12/10/2022 2:03 AM [facility] Blood BLOOD SPECIMEN / Unknown Lab Venipuncture / Unknown 12/10/2022 12:36 AM LAW SECRETARY 12/10/2022 1:42 AM LAW SECRETARY Levi Cooper MD LAB - HEMATOLO GY ORDERABLES [facility] [address] [place] [address], [facility] [phone] * (ABNORMAL) BASIC METABOLIC PANEL (CALCIUM TOTAL) (12/10/2022 12:36 AM LAW SECRETARY) [facility] BUN 20 7 - 26 mg/dL 12/10/2022 2:14 AM [facility] Creatinine 1.46(H) 0.56 - 0.96 mg/dL 12/10/2022 2:14 AM [facility] Sodium 147(H) 136 - 145 mmol/L 12/10/2022 2:14 AM [facility] Potassium 3.6 3.5 - 4.5 mmol/L 12/10/2022 2:14 AM [facility] Chloride 112(H) 98 - 107 mmol/L 12/10/2022 2:14 AM [facility] CO2 26 22 - 29 mmol/L 12/10/2022 2:14 AM [facility] Glucose 159(H) 70 - 115 mg/dL 12/10/2022 2:14 AM [facility] Calcium 7.9(L) 8.4 - 10.2 mg/dL 12/10/2022 2:14 AM [facility] Anion Gap 13 8 - 18 12/10/2022 2:14 AM [facility] BUN/Creatinine Ratio 14 7 - 23 12/10/2022 2:14 AM [facility] Osmolality Calculated 310(H) 270 - 300 mOsm/kg 12/10/2022 2:14 AM [facility] eGFR by CKD-EPI 49(L) >=90 mL/min/1.7 3 m2 12/10/2022 2:14 AM [facility] Blood BLOOD SPECIMEN / Unknown Lab Venipuncture / Unknown 12/10/2022 12:36 AM LAW SECRETARY 12/10/2022 1:42 AM [facility] Levi Cooper MD LAB - CHEMISTR Y ORDERABLES [facility] [address] [place] [address], [facility] [phone] * GLUCOSE - POINT OF CARE (12/09/2022 8:51 PM LAW SECRETARY) Glucose WB/POC 103 70 - 115 mg/dL 12/09/2022 8:56 PM LAW SECRETARY [facility] Specimen Type Cap Fingerstick 2022 8:56 PM LAW SECRETARY [facility] Blood BLOOD SPECIMEN / Unknown 12/09/2022 8:51 PM LAW SECRETARY 12/09/2022 8:56 PM LAW SECRETARY Branden Galindo MD LAB - POINT OF CARE ORDERABLES [address] [address], [place] [phone] * GLUCOSE - POINT OF CARE (12/09/2022 4:07 PM LAW SECRETARY) Glucose WB/POC 79 70 - 115 mg/dL 12/09/2022 4:16 PM LAW SECRETARY [facility] Specimen Type Cap Fingerstick 2022 4:16 PM LAW SECRETARY [facility] Blood BLOOD SPECIMEN / Unknown 12/09/2022 4:07 PM LAW SECRETARY 12/09/2022 4:16 PM LAW SECRETARY Branden Galindo MD LAB - POINT OF CARE ORDERABLES Performing Organization Address City/[facility]/ZIP Co de Phone Number [address] [address], [place] [phone] * (ABNORMAL) GLUCOSE - POINT OF CARE (12/09/2022 12:58 PM LAW SECRETARY) Glucose WB/POC 202(H) 70 - 115 mg/dL 12/09/2022 7:35 PM LAW SECRETARY [facility] Specimen Type Cap Fingerstick 2022 7:35 PM LAW SECRETARY [facility] Blood BLOOD SPECIMEN / Unknown 12/09/2022 12:58 PM LAW SECRETARY 12/09/2022 7:35 PM LAW SECRETARY Branden Galindo MD LAB - POINT OF CARE ORDERABLES [address] [address], [place] [phone] * (ABNORMAL) GLUCOSE - POINT OF CARE (12/09/2022 7:59 AM LAW SECRETARY) Glucose WB/POC 124(H) 70 - 115 mg/dL 12/09/2022 8:07 AM [facility] Specimen Type Cap Fingerstick 2022 8:07 AM [facility] Blood BLOOD SPECIMEN / Unknown 12/09/2022 7:59 AM LAW SECRETARY 12/09/2022 8:07 AM LAW SECRETARY Branden Galindo MD LAB - POINT OF CARE ORDERABLES [facility] [address] [place] [address], [place] [phone] * (ABNORMAL) GLUCOSE - POINT OF CARE (12/09/2022 4:47 AM LAW SECRETARY) Glucose WB/POC 118(H) 70 - 115 mg/dL 12/09/2022 4:56 AM [facility] Specimen Type Cap Fingerstick 2022 4:56 AM [facility] Blood BLOOD SPECIMEN / Unknown 12/09/2022 4:47 AM LAW SECRETARY 12/09/2022 4:56 AM LAW SECRETARY Branden Galindo MD LAB - POINT OF CARE ORDERABLES [address] [address], [place] [phone] * (ABNORMAL) DIFFERENTIAL MANUAL (12/09/2022 1:29 AM LAW SECRETARY) WBC (corrected for NRBC) 19.1 10? 3 /uL 12/09/2022 3:36 AM [facility] Total Cell Count 100 12/09/19 23 3:36 AM [facility] Neutrophils Absolute Manual 14.52(H) 1.60 - 7.00 10? 3 /uL 12/09/2022 3:36 AM [facility] Comment:(BANDS+SEGS) x WBC = NEUT # (ANC) Lymphocyte Absolute Manual 1.91 1.10 - 3.90 10? 3 /uL 12/09/2022 3:36 AM [facility] Monocytes Absolute Manual 1.15(H) 0.26 - 1.07 10? 3 /uL 12/09/2022 3:36 AM [facility] Eosinophils Absolute Manual 0.57(H) 0.00 - 0.47 10? 3 /uL 12/09/2022 3:36 AM [facility] Band % Manual 2 0 - 10 % 12/09/2022 3:36 AM [facility] Neutrophil % Manual 74(H) 35 - 70 % 12/09/2022 3:36 AM [facility] Lymphocyte % Manual 10(L) 20 - 43 % 12/09/2022 3:36 AM [facility] Monocytes % Manual 6 5 - 13 % 12/09/2022 3:36 AM [facility] Eosinophils % Manual 3 0 - 6 % 12/09/2022 3:36 AM [facility] Metamyelocyte % Manual 4(H) 0 % 12/09/2022 3:36 AM [facility] Myelocytes % Manual 1(H) 0 % 12/09/2022 3:36 AM [facility] Platelet Estimate Increased(A ) Adequate 12/09/2022 3:36 AM [facility] Anisocytosis 1+(A) None 12/09/2022 3:36 AM [facility] Microcytes 2+(A) None 12/09/2022 3:36 AM [facility] Macrocytosis Occasional( A) None 12/09/2022 3:36 AM [facility] Hypochromia Occasional( A) None 12/09/2022 3:36 AM [facility] Polychromasia 1+(A) None 12/09/2022 3:36 AM [facility] Target Cells 1+(A) None 12/09/2022 3:36 AM [facility] Comment Platelet Platelet clumpled on the smear but appear increased. 12/09/2022 3:36 AM [facility] Blood BLOOD SPECIMEN / Unknown Lab Venipuncture / Unknown 12/09/2022 1:29 AM LAW SECRETARY 12/09/2022 2:07 AM LAW SECRETARY Levi Cooper MD LAB - HEMATOLO GY ORDERABLES [facility] [address] [place] [address], [facility] [phone] * (ABNORMAL) CBC W AUTO DIFFERENTIAL (12/09/2022 1:29 AM LAW SECRETARY) WBC 19.1(H) 3.5 - 10.5 10? 3 /uL 12/09/2022 2:36 AM [facility] RBC 3.33(L) 3.80 - 5.20 10? 6 /uL 12/09/2022 2:36 AM [facility] Hemoglobin 7.5(L) 12.0 - 15.6 g/dL 12/09/2022 2:36 AM [facility] Hematocrit 25.4(L) 35.0 - 45.0 % 12/09/2022 2:36 AM [facility] MCV 76.3(L) 80.7 - 98.3 fL 12/09/2022 2:36 AM [facility] MCH 22.5(L) 26.7 - 34.0 pg 12/09/2022 2:36 AM [facility] MCHC 29.5(L) 30.8 - 35.9 g/dL 12/09/2022 2:36 AM [facility] RDW-SD 53.4(H) 36.0 - 50.0 fL 12/09/2022 2:36 AM [facility] RDW-CV 20.4(H) 11.2 - 14.8 % 12/09/2022 2:36 AM [facility] Platelet Count 622(H) 150 - 400 10? 3 /uL 12/09/2022 2:36 AM [facility] MPV 8.8(L) 9.4 - 12.9 fL 12/09/2022 2:36 AM [facility] nRBC Absolute 0.12(H) 0 10? 3 /uL 12/09/2022 2:36 AM [facility] nRBC Auto 0.6(H) 0 /100 WBC 12/09/2022 2:36 AM [facility] Blood BLOOD SPECIMEN / Unknown Lab Venipuncture / Unknown 12/09/2022 1:29 AM LAW SECRETARY 12/09/2022 2:07 AM LAW SECRETARY Levi Cooper MD LAB - HEMATOLO GY ORDERABLES [facility] [address] [place] [address], [facility] [phone] * (ABNORMAL) BASIC METABOLIC PANEL (CALCIUM TOTAL) (12/09/2022 1:29 AM LAW SECRETARY) BUN 24 7 - 26 mg/dL 12/09/2022 2:47 AM [facility] Creatinine 1.63(H) 0.56 - 0.96 mg/dL 12/09/2022 2:47 AM [facility] Sodium 146(H) 136 - 145 mmol/L 12/09/2022 2:47 AM [facility] Potassium 3.4(L) 3.5 - 4.5 mmol/L 12/09/2022 2:47 AM [facility] Chloride 113(H) 98 - 107 mmol/L 12/09/2022 2:47 AM [facility] CO2 23 22 - 29 mmol/L 12/09/2022 2:47 AM [facility] Glucose 109 70 - 115 mg/dL 12/09/2022 2:47 AM [facility] Calcium 7.7(L) 8.4 - 10.2 mg/dL 12/09/2022 2:47 AM [facility] Anion Gap 13 8 - 18 12/09/2022 2:47 AM [facility] BUN/Creatinine Ratio 15 7 - 23 12/09/2022 2:47 AM [facility] Osmolality Calculated 307(H) 270 - 300 mOsm/kg 12/09/2022 2:47 AM [facility] eGFR by CKD-EPI 43(L) >=90 mL/min/1.7 3 m2 12/09/2022 2:47 AM [facility] Blood BLOOD SPECIMEN / Unknown Lab Venipuncture / Unknown 12/09/2022 1:29 AM LAW SECRETARY 12/09/2022 2:04 AM LAW SECRETARY Levi Cooper MD LAB - CHEMISTR Y ORDERABLES Performing Organization Address City/[facility]/ZIP Co de Phone Number [facility] [address] [place] [address], [place] [phone] * (ABNORMAL) GLUCOSE - POINT OF CARE (12/09/2022 12:47 AM LAW SECRETARY) Glucose WB/POC 161(H) 70 - 115 mg/dL 12/09/2022 12:52 AM LAW SECRETARY [facility] Specimen Type Cap Fingerstick 2022 12:52 AM LAW SECRETARY [facility] Blood BLOOD SPECIMEN / Unknown 12/09/2022 12:47 AM LAW SECRETARY 12/09/2022 12:52 AM LAW SECRETARY Branden Galindo MD LAB - POINT OF CARE ORDERABLES Performing Organization Address [facility]/ZIP Co de Phone Number [address] [address], [place] [phone] * (ABNORMAL) GLUCOSE - POINT OF CARE (12/08/2022 9:39 PM LAW SECRETARY) Glucose WB/POC 162(H) 70 - 115 mg/dL 12/08/2022 9:44 PM LAW SECRETARY [facility] Specimen Type Cap Fingerstick 2022 9:44 PM LAW SECRETARY [facility] Blood BLOOD SPECIMEN / Unknown 12/08/2022 9:39 PM LAW SECRETARY 12/08/2022 9:44 PM LAW SECRETARY Branden Galindo MD LAB - POINT OF CARE ORDERABLES Performing Organization Address City/[facility]/ZIP Co de Phone Number [address] [address], [place] [phone] * (ABNORMAL) GLUCOSE - POINT OF CARE (12/08/2022 5:14 PM LAW SECRETARY) Glucose WB/POC 155(H) 70 - 115 mg/dL 12/08/2022 5:19 PM LAW SECRETARY [facility] Specimen Type Arterial 12/08/2022 5:19 PM LAW SECRETARY [facility] Blood BLOOD SPECIMEN / Unknown 12/08/2022 5:14 PM LAW SECRETARY 12/08/2022 5:19 PM LAW SECRETARY Branden Galindo MD LAB - POINT OF CARE ORDERABLES [address] [address], [place] [phone] * VANCOMYCIN LEVEL RANDOM (12/08/2022 12:56 PM LAW SECRETARY) Vancomycin Random 16.8 Therapeutic Ranges not established for random specimens ug/mL 12/08/2022 1:24 PM LAW SECRETARY [facility] Blood BLOOD SPECIMEN / Unknown Lab Venipuncture / Unknown 12/08/2022 12:56 PM LAW SECRETARY 12/08/2022 1:01 PM LAW SECRETARY Narrative [facility] - 12/08/2022 1:24 PM LAW SECRETARY See institution protocol. Leigh [facility] LAB - CHEMISTRY DIVINA OLVERA Performing Organization Address City/[facility]/ZIP Co de Phone Number [address] [address], [place] [phone] * (ABNORMAL) GLUCOSE - POINT OF CARE (12/08/2022 11:22 AM LAW SECRETARY) Glucose WB/POC 119(H) 70 - 115 mg/dL 12/08/2022 11:29 AM LAW SECRETARY [facility] Specimen Type Arterial 12/08/2022 11:29 AM LAW SECRETARY [facility] Blood BLOOD SPECIMEN / Unknown 12/08/2022 11:22 AM LAW SECRETARY 12/08/2022 11:29 AM LAW SECRETARY Branden Galindo MD LAB - POINT OF CARE ORDERABLES [address] [address], [place] [phone] * (ABNORMAL) GLUCOSE - POINT OF CARE (12/08/2022 7:43 AM LAW SECRETARY) Glucose WB/POC 146(H) 70 - 115 mg/dL 12/08/2022 7:48 AM [facility] Specimen Type Arterial 12/08/2022 7:48 AM [facility] Blood BLOOD SPECIMEN / Unknown 12/08/2022 7:43 AM LAW SECRETARY 12/08/2022 7:48 AM LAW SECRETARY Branden Galindo MD LAB - POINT OF CARE ORDERABLES [facility] [address] [place] [address], [facility] [phone] * (ABNORMAL) GLUCOSE - POINT OF CARE (12/08/2022 4:20 AM LAW SECRETARY) Glucose WB/POC 153(H) 70 - 115 mg/dL 12/08/2022 4:21 AM [facility] Specimen Type Cap Fingerstick 2022 4:21 AM [facility] Blood BLOOD SPECIMEN / Unknown 12/08/2022 4:20 AM LAW SECRETARY 12/08/2022 4:21 AM LAW SECRETARY Branden Galindo MD LAB - POINT OF CARE ORDERABLES [facility] [address] [place] [address], [place] [phone] * (ABNORMAL) DIFFERENTIAL MANUAL (12/08/2022 3:31 AM LAW SECRETARY) WBC (corrected for NRBC) 20.0 10? 3 /uL 12/08/2022 5:50 AM [facility] Total Cell Count 100 12/08/19 5:50 AM [facility] Neutrophils Absolute Manual 18.80(H) 1.60 - 7.00 10? 3 /uL 12/08/2022 5:50 AM [facility] Comment:(BANDS+SEGS) x WBC = NEUT # (ANC) Lymphocyte Absolute Manual 0.80(L) 1.10 - 3.90 10? 3 /uL 12/08/2022 5:50 AM [facility] Monocytes Absolute Manual 0.20(L) 0.26 - 1.07 10? 3 /uL 12/08/2022 5:50 AM [facility] Eosinophils Absolute Manual 0.20 0.00 - 0.47 10? 3 /uL 12/08/2022 5:50 AM [facility] Band % Manual 4 0 - 10 % 12/08/2022 5:50 AM [facility] Neutrophil % Manual 90(H) 35 - 70 % 12/08/2022 5:50 AM [facility] Lymphocyte % Manual 4(L) 20 - 43 % 12/08/2022 5:50 AM [facility] Monocytes % Manual 1(L) 5 - 13 % 12/08/2022 5:50 AM [facility] Eosinophils % Manual 1 0 - 6 % 12/08/2022 5:50 AM [facility] Platelet Estimate Increased (A) Adequate 12/08/2022 5:50 AM [facility] Anisocytosis 1+(A) None 12/08/2022 5:50 AM [facility] Microcytes 1+(A) None 12/08/2022 5:50 AM [facility] Target Cells Occasiona l(A) None 12/08/2022 5:50 AM [facility] Blood BLOOD SPECIMEN / Unknown Lab Venipuncture / Unknown 12/08/2022 3:31 AM LAW SECRETARY 12/08/2022 3:57 AM [facility] Levi Cooper MD LAB - HEMATOLO GY ORDERABLES [facility] [address] [place] [id number], [facility] [phone] * (ABNORMAL) CBC W AUTO DIFFERENTIAL (12/08/2022 3:31 AM LAW SECRETARY) WBC 20.0(H) 3.5 - 10.5 10? 3 /uL 12/08/2022 4:07 AM [facility] RBC 3.33(L) 3.80 - 5.20 10? 6 /uL 12/08/2022 4:07 AM [facility] Hemoglobin 7.6(L) 12.0 - 15.6 g/dL 12/08/2022 4:07 AM [facility] Hematocrit 25.6(L) 35.0 - 45.0 % 12/08/2022 4:07 AM [facility] MCV 76.9(L) 80.7 - 98.3 fL 12/08/2022 4:07 AM [facility] MCH 22.8(L) 26.7 - 34.0 pg 12/08/2022 4:07 AM [facility] MCHC 29.7(L) 30.8 - 35.9 g/dL 12/08/2022 4:07 AM [facility] RDW-SD 54.4(H) 36.0 - 50.0 fL 12/08/2022 4:07 AM [facility] RDW-CV 19.9(H) 11.2 - 14.8 % 12/08/2022 4:07 AM [facility] Platelet Count 562(H) 150 - 400 10? 3 /uL 12/08/2022 4:07 AM [facility] MPV 9.0(L) 9.4 - 12.9 fL 12/08/2022 4:07 AM [facility] nRBC Absolute 0.10(H) 0 10? 3 /uL 12/08/2022 4:07 AM [facility] nRBC Auto 0.5(H) 0 /100 WBC 12/08/2022 4:07 AM [facility] Blood BLOOD SPECIMEN / Unknown Lab Venipuncture / Unknown 12/08/2022 3:31 AM LAW SECRETARY 12/08/2022 3:57 AM LAW SECRETARY Levi Cooper MD LAB - HEMATOLO GY ORDERABLES [facility] [address] [place] [address], [facility] [phone] * (ABNORMAL) BASIC METABOLIC PANEL (CALCIUM TOTAL) (12/08/2022 3:31 AM LAW SECRETARY) BUN 27(H) 7 - 26 mg/dL 12/08/2022 4:25 AM [facility] Creatinine 1.86(H) 0.56 - 0.96 mg/dL 12/08/2022 4:25 AM [facility] Sodium 145 136 - 145 mmol/L 12/08/2022 4:25 AM [facility] Potassium 3.7 3.5 - 4.5 mmol/L 12/08/2022 4:25 AM [facility] Chloride 112(H) 98 - 107 mmol/L 12/08/2022 4:25 AM [facility] CO2 22 22 - 29 mmol/L 12/08/2022 4:25 AM [facility] Glucose 158(H) 70 - 115 mg/dL 12/08/2022 4:25 AM [facility] Calcium 7.6(L) 8.4 - 10.2 mg/dL 12/08/2022 4:25 AM [facility] Anion Gap 15 8 - 18 12/08/2022 4:25 AM [facility] BUN/Creatinine Ratio 15 7 - 23 12/08/2022 4:25 AM [facility] Osmolality Calculated 308(H) 270 - 300 mOsm/kg 12/08/2022 4:25 AM [facility] eGFR by CKD-EPI 37(L) >=90 mL/min/1.7 3 m2 12/08/2022 4:25 AM [facility] Blood BLOOD SPECIMEN / Unknown Lab Venipuncture / Unknown 12/08/2022 3:31 AM LAW SECRETARY 12/08/2022 3:57 AM [facility] Levi Cooper MD LAB - CHEMISTR Y ORDERABLES [facility] [address] [place] [id number], [facility] [phone] * (ABNORMAL) GLUCOSE - POINT OF CARE (12/07/2022 11:50 PM LAW SECRETARY) Glucose WB/POC 133(H) 70 - 115 mg/dL 12/07/2022 11:55 PM [facility] Specimen Type Cap Fingerstick 2022 11:55 PM LAW SECRETARY [facility] [facility] Blood BLOOD SPECIMEN / Unknown 12/07/2022 11:50 PM LAW SECRETARY 12/07/2022 11:55 PM LAW SECRETARY Branden Galindo MD LAB - POINT OF CARE ORDERABLES [address] [address], [place] [phone] * (ABNORMAL) GLUCOSE - POINT OF CARE (12/07/2022 9:25 PM LAW SECRETARY) Glucose WB/POC 146(H) 70 - 115 mg/dL 12/07/2022 9:26 PM LAW SECRETARY [facility] Specimen Type Cap Fingerstick 2022 9:26 PM LAW SECRETARY [facility] Blood BLOOD SPECIMEN / Unknown 12/07/2022 9:25 PM LAW SECRETARY 12/07/2022 9:26 PM LAW SECRETARY Branden Galindo MD LAB - POINT OF CARE ORDERABLES [address] [address], [place] [phone] * GLUCOSE - POINT OF CARE (12/07/2022 4:53 PM LAW SECRETARY) Glucose WB/POC 105 70 - 115 mg/dL 12/07/2022 4:58 PM LAW SECRETARY [facility] Specimen Type Arterial 12/07/2022 4:58 PM LAW SECRETARY [facility] Blood BLOOD SPECIMEN / Unknown 12/07/2022 4:53 PM LAW SECRETARY 12/07/2022 4:58 PM LAW SECRETARY Branden Galindo MD LAB - POINT OF CARE ORDERABLES [address] [address], [place] [phone] * GLUCOSE - POINT OF CARE (12/07/2022 11:51 AM LAW SECRETARY) Glucose WB/POC 70 70 - 115 mg/dL 12/07/2022 11:51 AM LAW SECRETARY [facility] Specimen Type Cap Fingerstick 2022 11:51 AM [facility] Blood BLOOD SPECIMEN / Unknown 12/07/2022 11:51 AM LAW SECRETARY 12/07/2022 11:51 AM LAW SECRETARY Branden Galindo MD LAB - POINT OF CARE ORDERABLES [address] [address], [place] [phone] * (ABNORMAL) GLUCOSE - POINT OF CARE (12/07/2022 11:29 AM LAW SECRETARY) Glucose WB/POC 48(LL) 70 - 115 mg/dL 12/07/2022 11:34 AM LAW SECRETARY [facility] Specimen Type Arterial 12/07/2022 11:34 AM [facility] Blood BLOOD SPECIMEN / Unknown 12/07/2022 11:29 AM LAW SECRETARY 12/07/2022 11:34 AM LAW SECRETARY Branden Galindo MD LAB - POINT OF CARE ORDERABLES Performing Organization Address City/[facility]/ZIP Co de Phone Number [address] [address], [place] [phone] * (ABNORMAL) GLUCOSE - POINT OF CARE (12/07/2022 8:00 AM LAW SECRETARY) Glucose WB/POC 177(H) 70 - 115 mg/dL 12/07/2022 8:01 AM LAW SECRETARY [facility] Specimen Type Cap Fingerstick 2022 8:01 AM [facility] Blood BLOOD SPECIMEN / Unknown 12/07/2022 8:00 AM LAW SECRETARY 12/07/2022 8:01 AM LAW SECRETARY Branden Galindo MD LAB - POINT OF CARE ORDERABLES [address] [place] [address], [facility] [phone] * (ABNORMAL) BASIC METABOLIC PANEL (CALCIUM TOTAL) (12/07/2022 5:34 AM [facility]) BUN 30(H) 7 - 26 mg/dL 12/07/2022 6:18 AM [facility] Creatinine 2.13(H) 0.56 - 0.96 mg/dL 12/07/2022 6:18 AM [facility] Sodium 142 136 - 145 mmol/L 12/07/2022 6:18 AM [facility] Potassium 3.5 3.5 - 4.5 mmol/L 12/07/2022 6:18 AM [facility] Chloride 113(H) 98 - 107 mmol/L 12/07/2022 6:18 AM [facility] CO2 21(L) 22 - 29 mmol/L 12/07/2022 6:18 AM [facility] Glucose 91 70 - 115 mg/dL 12/07/2022 6:18 AM [facility] Calcium 7.2(L) 8.4 - 10.2 mg/dL 12/07/2022 6:18 AM [facility] Anion Gap 12 8 - 18 12/07/2022 6:18 AM [facility] BUN/Creatinine Ratio 14 7 - 23 12/07/2022 6:18 AM [facility] Osmolality Calculated 300 270 - 300 mOsm/kg 12/07/2022 6:18 AM [facility] eGFR by CKD-EPI 31(L) >=90 mL/min/1.7 3 m2 12/07/2022 6:18 AM [facility] Blood BLOOD SPECIMEN / Unknown Lab Venipuncture / Unknown 12/07/2022 5:34 AM LAW SECRETARY 12/07/2022 5:48 AM [facility] Levi Cooper MD LAB - CHEMISTR Y ORDERABLES [facility] [address] [place] [address], [facility] [phone] * VANCOMYCIN LEVEL RANDOM (12/07/2022 5:34 AM LAW SECRETARY) [facility] Vancomycin Random 18.5 Therapeutic Ranges not established for random specimens ug/mL 12/07/2022 6:18 AM [facility] Blood BLOOD SPECIMEN / Unknown Lab Venipuncture / Unknown 12/07/2022 5:34 AM LAW SECRETARY 12/07/2022 5:48 AM LAW SECRETARY [facility] - 12/07/2022 6:18 AM LAW SECRETARY See institution protocol. Leigh SIBLEY LAB - CHEMISTRY DIVINA OLVERA [facility] [address] [place] [address], [facility] [phone] * (ABNORMAL) DIFFERENTIAL MANUAL (12/07/2022 5:33 AM LAW SECRETARY) [facility] WBC (corrected for NRBC) 20.5 10? 3 /uL 12/07/2022 7:28 AM [facility] Total Cell Count 100 12/07/19 23 7:28 AM [facility] Neutrophils Absolute Manual 17.02(H) 1.60 - 7.00 10? 3 /uL 12/07/2022 7:28 AM [facility] Comment:(BANDS+SEGS) x WBC = NEUT # (ANC) Lymphocyte Absolute Manual 1.44 1.10 - 3.90 10? 3 /uL 12/07/2022 7:28 AM [facility] Monocytes Absolute Manual 0.62 0.26 - 1.07 10? 3 /uL 12/07/2022 7:28 AM [facility] Eosinophils Absolute Manual 0.62(H) 0.00 - 0.47 10? 3 /uL 12/07/2022 7:28 AM [facility] Band % Manual 3 0 - 10 % 12/07/2022 7:28 AM [facility] Neutrophil % Manual 80(H) 35 - 70 % 12/07/2022 7:28 AM [facility] Lymphocyte % Manual 7(L) 20 - 43 % 12/07/2022 7:28 AM [facility] Monocytes % Manual 3(L) 5 - 13 % 12/07/2022 7:28 AM [facility] Eosinophils % Manual 3 0 - 6 % 12/07/2022 7:28 AM [facility] Metamyelocyte % Manual 2(H) 0 % 12/07/2022 7:28 AM [facility] Myelocytes % Manual 2(H) 0 % 12/07/2022 7:28 AM [facility] nRBC Manual 1(H) 0 /100 WBC 12/07/2022 7:28 AM [facility] Platelet Estimate Increased(A ) Adequate 12/07/2022 7:28 AM [facility] Anisocytosis 1+(A) None 12/07/2022 7:28 AM [facility] Microcytes Occasional( A) None 12/07/2022 7:28 AM [facility] Hypochromia Few(A) None 12/07/2022 7:28 AM [facility] Target Cells 1+(A) None 12/07/2022 7:28 AM [facility] Schistocytes Occasional( A) None 12/07/2022 7:28 AM [facility] Comment Platelet Platelet clumpled on the smear but appear increased. 12/07/2022 7:28 AM [facility] Blood BLOOD SPECIMEN / Unknown Lab Venipuncture / Unknown 12/07/2022 5:33 AM LAW SECRETARY 12/07/2022 5:48 AM [facility] Levi Cooper MD LAB - HEMATOLO GY ORDERABLES Performing Organization Address City/State/[facility] Co de Phone Number [facility] [address] [place] [phone], [facility] [phone] * (ABNORMAL) CBC W AUTO DIFFERENTIAL (12/07/2022 5:33 AM LAW SECRETARY) WBC 20.5(H) 3.5 - 10.5 10? 3 /uL 12/07/2022 7:25 AM [facility] RBC 3.57(L) 3.80 - 5.20 10? 6 /uL 12/07/2022 7:25 AM [facility] Hemoglobin 8.1(L) 12.0 - 15.6 g/dL 12/07/2022 7:25 AM [facility] Hematocrit 27.3(L) 35.0 - 45.0 % 12/07/2022 7:25 AM [facility] MCV 76.5(L) 80.7 - 98.3 fL 12/07/2022 7:25 AM [facility] MCH 22.7(L) 26.7 - 34.0 pg 12/07/2022 7:25 AM [facility] MCHC 29.7(L) 30.8 - 35.9 g/dL 12/07/2022 7:25 AM [facility] RDW-SD 54.8(H) 36.0 - 50.0 fL 12/07/2022 7:25 AM [facility] RDW-CV 20.1(H) 11.2 - 14.8 % 12/07/2022 7:25 AM [facility] Platelet Count 12/07/2022 7:25 AM [facility] Comment: Platelets are clumped, appear as increased on the slide. ??A blue top citrated tube is required for a platelet count. ?? Notified Lefty Aguilar RN/6N at 0725H on 12/07/22. MPV 12/07/2022 7:25 AM [facility] Comment:Unable to Report Immature Platelet Fraction 12/07/2022 7:25 AM [facility] Comment:Unable to Report nRBC Absolute 0.17(H) 0 10? 3 /uL 12/07/2022 7:25 AM [facility] nRBC Auto 0.8(H) 0 /100 WBC 12/07/2022 7:25 AM [facility] Blood BLOOD SPECIMEN / Unknown Lab Venipuncture / Unknown 12/07/2022 5:33 AM LAW SECRETARY 12/07/2022 5:48 AM LAW SECRETARY Levi Cooper MD LAB - HEMATOLO GY ORDERABLES [facility] [address] [place] [address], [facility] [phone] * GLUCOSE - POINT OF CARE (12/07/2022 5:15 AM LAW SECRETARY) Glucose WB/POC 92 70 - 115 mg/dL 12/07/2022 5:20 AM LAW SECRETARY [facility] Specimen Type Cap Fingerstick 2022 5:20 AM [facility] Blood BLOOD SPECIMEN / Unknown 12/07/2022 5:15 AM LAW SECRETARY 12/07/2022 5:20 AM LAW SECRETARY Branden Galindo MD LAB - POINT OF CARE ORDERABLES [facility] [address] [place] [address], [place] [phone] * (ABNORMAL) GLUCOSE - POINT OF CARE (12/07/2022 4:50 AM LAW SECRETARY) Glucose WB/POC 62(L) 70 - 115 mg/dL 12/07/2022 4:56 AM LAW SECRETARY [facility] Specimen Type Cap Fingerstick 2022 4:56 AM LAW SECRETARY [facility] Blood BLOOD SPECIMEN / Unknown 12/07/2022 4:50 AM LAW SECRETARY 12/07/2022 4:56 AM LAW SECRETARY Branden Galindo MD LAB - POINT OF CARE ORDERABLES Performing Organization Address City/[facility]/ZIP Co de Phone Number [facility] [address] [place] [phone], [place] [phone] * (ABNORMAL) GLUCOSE - POINT OF CARE (12/07/2022 4:19 AM LAW SECRETARY) Glucose WB/POC 69(L) 70 - 115 mg/dL 12/07/2022 4:27 AM LAW SECRETARY [facility] Specimen Type Cap Fingerstick 2022 4:27 AM LAW SECRETARY [facility] Blood BLOOD SPECIMEN / Unknown 12/07/2022 4:19 AM LAW SECRETARY 12/07/2022 4:27 AM LAW SECRETARY Branden Galindo MD LAB - POINT OF CARE ORDERABLES [facility] [address] [place] [address], [facility] [phone] * PREPARE (CROSSMATCH) RBC UNIT(S), 2 Units (12/07/2022 1:17 AM LAW SECRETARY) Unit Description AS1 LR PRBC [facility] BLOOD [facility] LAB Unit ABO A [facility] BLOOD [facility] LAB Unit Rh POS [facility] BLOOD [facility] LAB Product Number R44 [facility] B LOOD BANK LAB Unit Donor # [id number] [facility] BLOOD [facility] LAB Unit Status released [facility] BLOO D BANK LAB Product Code [id number] [facility] BLO OD BANK LAB Blood Type Barcode 6200 [facility] BLOOD [facility] LAB Expiration Date S BLOOD BANK LAB Unit Description AS1 LR PRBC [facility] BLOOD BANK LAB Unit ABO A [facility] BLOOD BANK LAB Unit Rh POS [facility] BLOOD BANK LAB Product Number R02 [facility] B LOOD BANK LAB Unit Donor # [id number] [facility] BLOOD BANK LAB Unit Status released [facility] BLOO D BANK LAB Product Code [id number] [facility] BLO OD BANK LAB Blood Type Barcode 6200 [facility] BLOOD BANK LAB Expiration Date S BLOOD BANK LAB Blood Bank BLOOD SPECIMEN / Unknown 12/03/2022 2:48 AM LAW SECRETARY Graeme Rodgers MD LAB - BLOOD BANK O RDERABLES [facility] BLOOD BANK LAB [facility] [place] [address], [facility] [phone] * (ABNORMAL) GLUCOSE - POINT OF CARE (12/07/2022 12:04 AM LAW SECRETARY) [facility] Glucose WB/POC 358(H) 70 - 115 mg/dL 12/07/2022 12:12 AM LAW SECRETARY [facility] Specimen Type Cap Fingerstick 2022 12:12 AM LAW SECRETARY [facility] Blood BLOOD SPECIMEN / Unknown 12/07/2022 12:04 AM LAW SECRETARY 12/07/2022 12:12 AM LAW SECRETARY Branden Galindo MD LAB - POINT OF CARE ORDERABLES [address] [address], [place] [phone] * (ABNORMAL) GLUCOSE - POINT OF CARE (12/06/2022 8:10 PM LAW SECRETARY) Glucose WB/POC 160(H) 70 - 115 mg/dL 12/06/2022 8:14 PM LAW SECRETARY [facility] Specimen Type Cap Fingerstick 2022 8:14 PM LAW SECRETARY [facility] Blood BLOOD SPECIMEN / Unknown 12/06/2022 8:10 PM LAW SECRETARY 12/06/2022 8:14 PM LAW SECRETARY Branden Galindo MD LAB - POINT OF CARE ORDERABLES Performing Organization Address City/[facility]/ZIP Co de Phone Number [address] [address], [place] [phone] * BACTERIAL VAGINOSIS RAPID TEST (12/06/2022 6:20 PM LAW SECRETARY) Bacterial Vaginosis Rapid Negative Negative 12/06/2022 7:00 PM LAW SECRETARY [facility] Microbiology VAGINAL SWAB / Unknown Collection / Unknown 12/06/2022 6:20 PM LAW SECRETARY 12/06/2022 6:31 PM LAW SECRETARY Leigh SIBLEY LAB - MICROBIOLOGY O RDERABLES [address] [address], [place] [phone] * (ABNORMAL) GLUCOSE - POINT OF CARE (12/06/2022 5:11 PM LAW SECRETARY) Glucose WB/POC 146(H) 70 - 115 mg/dL 12/06/2022 5:16 PM LAW SECRETARY [facility] Specimen Type Cap Fingerstick 2022 5:16 PM LAW SECRETARY [facility] Blood BLOOD SPECIMEN / Unknown 12/06/2022 5:11 PM LAW SECRETARY 12/06/2022 5:16 PM LAW SECRETARY Branden Galindo MD LAB - POINT OF CARE ORDERABLES Performing Organization Address City/[facility]/ZIP Co de Phone Number [facility] [address] [place] [phone], [place] [phone] * GLUCOSE - POINT OF CARE (12/06/2022 11:50 AM LAW SECRETARY) Glucose WB/POC 109 70 - 115 mg/dL 12/06/2022 11:55 AM LAW SECRETARY [facility] Specimen Type Cap Fingerstick 2022 11:55 AM LAW SECRETARY [facility] Blood BLOOD SPECIMEN / Unknown 12/06/2022 11:50 AM LAW SECRETARY 12/06/2022 11:55 AM LAW SECRETARY Branden Galindo MD LAB - POINT OF CARE ORDERABLES Performing Organization Address City/[facility]/ZIP Co de Phone Number [address] [address], [place] [phone] * (ABNORMAL) GLUCOSE - POINT OF CARE (12/06/2022 7:32 AM LAW SECRETARY) Glucose WB/POC 198(H) 70 - 115 mg/dL 12/06/2022 7:37 AM [facility] Specimen Type Cap Fingerstick 2022 7:37 AM [facility] Blood BLOOD SPECIMEN / Unknown 12/06/2022 7:32 AM LAW SECRETARY 12/06/2022 7:36 AM LAW SECRETARY Rafa Patel MD LAB - POINT OF CARE ORDERABLES [facility] [address] [place] [phone], [place] [phone] * (ABNORMAL) GLUCOSE - POINT OF CARE (12/06/2022 4:05 AM LAW SECRETARY) Glucose WB/POC 147(H) 70 - 115 mg/dL 12/06/2022 4:10 AM [facility] Specimen Type Cap Fingerstick 2022 4:10 AM LAW SECRETARY [facility] Blood BLOOD SPECIMEN / Unknown 12/06/2022 4:05 AM LAW SECRETARY 12/06/2022 4:10 AM LAW SECRETARY Rafa Patel MD LAB - POINT OF CARE ORDERABLES [facility] [address] [place] [address], [facility] [phone] * (ABNORMAL) DIFFERENTIAL MANUAL (12/06/2022 4:01 AM LAW SECRETARY) WBC (corrected for NRBC) 19.5 10? 3 /uL 12/06/2022 7:51 AM [facility] Total Cell Count 100 12/06/19 7:51 AM [facility] Neutrophils Absolute Manual 17.55(H) 1.60 - 7.00 10? 3 /uL 12/06/2022 7:51 AM [facility] Comment:(BANDS+SEGS) x WBC = NEUT # (ANC) Lymphocyte Absolute Manual 1.17 1.10 - 3.90 10? 3 /uL 12/06/2022 7:51 AM [facility] Monocytes Absolute Manual 0.39 0.26 - 1.07 10? 3 /uL 12/06/2022 7:51 AM [facility] Eosinophils Absolute Manual 0.20 0.00 - 0.47 10? 3 /uL 12/06/2022 7:51 AM [facility] Basophil Absolute Manual 0.20(H) 0.00 - 0.08 10? 3 /uL 12/06/2022 7:51 AM [facility] Neutrophil % Manual 90(H) 35 - 70 % 12/06/2022 7:51 AM [facility] Lymphocyte % Manual 6(L) 20 - 43 % 12/06/2022 7:51 AM [facility] Monocytes % Manual 2(L) 5 - 13 % 12/06/2022 7:51 AM [facility] Eosinophils % Manual 1 0 - 6 % 12/06/2022 7:51 AM [facility] Basophils % Manual 1 0 - 2 % 12/06/2022 7:51 AM [facility] Platelet Estimate Increased (A) Adequate 12/06/2022 7:51 AM [facility] Anisocytosis 1+(A) None 12/06/2022 7:51 AM [facility] Poikilocytes 1+(A) None 12/06/2022 7:51 AM [facility] Microcytes 1+(A) None 12/06/2022 7:51 AM [facility] Basophilic Stippling Occasiona l(A) None 12/06/2022 7:51 AM [facility] Target Cells 1+(A) None 12/06/2022 7:51 AM [facility] Schistocytes Occasiona l(A) None 12/06/2022 7:51 AM [facility] Carli Cells 1+(A) None 12/06/2022 7:51 AM [facility] Blood BLOOD SPECIMEN / Unknown Lab Venipuncture / Unknown 12/06/2022 4:01 AM LAW SECRETARY 12/06/2022 4:10 AM [facility] Levi Cooper MD LAB - HEMATOLO GY ORDERABLES [facility] [address] [place] [phone], [facility] [phone] * (ABNORMAL) CBC W AUTO DIFFERENTIAL (12/06/2022 4:01 AM [facility]) WBC 19.5(H) 3.5 - 10.5 10? 3 /uL 12/06/2022 5:04 AM [facility] RBC 3.34(L) 3.80 - 5.20 10? 6 /uL 12/06/2022 5:04 AM [facility] Hemoglobin 7.6(L) 12.0 - 15.6 g/dL 12/06/2022 5:04 AM [facility] Hematocrit 25.2(L) 35.0 - 45.0 % 12/06/2022 5:04 AM [facility] MCV 75.4(L) 80.7 - 98.3 fL 12/06/2022 5:04 AM [facility] MCH 22.8(L) 26.7 - 34.0 pg 12/06/2022 5:04 AM [facility] MCHC 30.2(L) 30.8 - 35.9 g/dL 12/06/2022 5:04 AM [facility] RDW-SD 53.1(H) 36.0 - 50.0 fL 12/06/2022 5:04 AM [facility] RDW-CV 19.7(H) 11.2 - 14.8 % 12/06/2022 5:04 AM [facility] Platelet Count 577(H) 150 - 400 10? 3 /uL 12/06/2022 5:04 AM [facility] MPV 8.9(L) 9.4 - 12.9 fL 12/06/2022 5:04 AM [facility] nRBC Absolute 0.12(H) 0 10? 3 /uL 12/06/2022 5:04 AM [facility] nRBC Auto 0.6(H) 0 /100 WBC 12/06/2022 5:04 AM [facility] Blood BLOOD SPECIMEN / Unknown Lab Venipuncture / Unknown 12/06/2022 4:01 AM LAW SECRETARY 12/06/2022 4:10 AM [facility] Levi Cooper MD LAB - HEMATOLO GY ORDERABLES Performing Organization Address City/State/[facility] Co de Phone Number [facility] [address] [place] [phone], [facility] [phone] * (ABNORMAL) BASIC METABOLIC PANEL (CALCIUM TOTAL) (12/06/2022 4:01 AM [facility]) BUN 33(H) 7 - 26 mg/dL 12/06/2022 4:43 AM [facility] Creatinine 2.57(H) 0.56 - 0.96 mg/dL 12/06/2022 4:43 AM [facility] Sodium 140 136 - 145 mmol/L 12/06/2022 4:43 AM [facility] Potassium 3.7 3.5 - 4.5 mmol/L 12/06/2022 4:43 AM [facility] Chloride 111(H) 98 - 107 mmol/L 12/06/2022 4:43 AM [facility] CO2 20(L) 22 - 29 mmol/L 12/06/2022 4:43 AM [facility] Glucose 142(H) 70 - 115 mg/dL 12/06/2022 4:43 AM [facility] Calcium 7.4(L) 8.4 - 10.2 mg/dL 12/06/2022 4:43 AM [facility] Anion Gap 13 8 - 18 12/06/2022 4:43 AM [facility] BUN/Creatinine Ratio 13 7 - 23 12/06/2022 4:43 AM [facility] Osmolality Calculated 300 270 - 300 mOsm/kg 12/06/2022 4:43 AM [facility] eGFR by CKD-EPI 25(L) >=90 mL/min/1.7 3 m2 12/06/2022 4:43 AM [facility] Blood BLOOD SPECIMEN / Unknown Lab Venipuncture / Unknown 12/06/2022 4:01 AM LAW SECRETARY 12/06/2022 4:10 AM LAW SECRETARY Levi Cooper MD LAB - CHEMISTR Y ORDERABLES [address] [address], [facility] [phone] * (ABNORMAL) GLUCOSE - POINT OF CARE (12/06/2022 12:17 AM LAW SECRETARY) [facility] Glucose WB/POC 177(H) 70 - 115 mg/dL 12/06/2022 12:22 AM [facility] Specimen Type Cap Fingerstick 2022 12:22 AM [facility] Blood BLOOD SPECIMEN / Unknown 12/06/2022 12:17 AM LAW SECRETARY 12/06/2022 12:22 AM LAW SECRETARY Rafa Patel MD LAB - POINT OF CARE ORDERABLES [address] [address], [place] [phone] * (ABNORMAL) GLUCOSE - POINT OF CARE (12/05/2022 8:20 PM LAW SECRETARY) Pathologist [facility] Glucose WB/POC 191(H) 70 - 115 mg/dL 12/05/2022 8:26 PM LAW SECRETARY [facility] Specimen Type Cap Fingerstick 2022 8:26 PM LAW SECRETARY [facility] Blood BLOOD SPECIMEN / Unknown 12/05/2022 8:20 PM LAW SECRETARY 12/05/2022 8:26 PM LAW SECRETARY Rafa Patel MD LAB - POINT OF CARE ORDERABLES [facility] [address] [address], [facility] [phone] * CHLAMYDIA + GC AMPLIFIED PROBE (12/05/2022 6:19 PM LAW SECRETARY) [facility] Chlamydia Amplified Probe Negative Negative 12/06/2022 6:41 AM LAW SECRETARY [facility]CRO[facility] GC Amplified Probe Negative Negative 12/06/2022 6:41 AM LAW SECRETARY [facility] MICROBIOLOG[facility] Microbiology ENTIRE VAGINA / Unknown Collection / Unknown 12/05/2022 6:19 PM LAW SECRETARY 12/05/2022 6:30 PM LAW SECRETARY Narrative [facility] MICROBI[facility] - 12/06/2022 6:41 AM LAW SECRETARY Results based on detection/no detection of ribosomal RNA by amplified method. Leigh [facility]IBLEY LAB - MICROBIOLOGY O RDERABLES Performing Organization Address City/[facility]/ZIP Co de Phone Number [facility] MICROBIOLOGY [address] [place] [address], [facility] [phone] * CULTURE BLOOD (12/05/2022 5:04 PM LAW SECRETARY) Pathologist [facility] Culture No growth day 5 CHARLES 12/10/2022 7:02 PM LAW SECRETARY [facility]CROBI[facility] Blood PERIPHERAL BLOOD / Unknown Venipuncture / Unknown 12/05/2022 5:04 PM LAW SECRETARY 12/05/2022 5:11 PM LAW SECRETARY Leigh [facility] LAB - MICROBIOLOGY O RDERABLES Performing Organization Address City/[facility]/ZIP Co de Phone Number [facility]CRO[facility] [address] [place] [address], [facility] [phone] * (ABNORMAL) CBC W/O DIFFERENTIAL (12/05/2022 5:03 PM [facility]) WBC 16.8(H) 3.5 - 10.5 10? 3 /uL 12/05/2022 5:23 PM [facility] RBC 2.94(L) 3.80 - 5.20 10? 6 /uL 12/05/2022 5:23 PM [facility] Hemoglobin 6.6(L) 12.0 - 15.6 g/dL 12/05/2022 5:23 PM [facility] Hematocrit 21.4(L) 35.0 - 45.0 % 12/05/2022 5:23 PM [facility] MCV 72.8(L) 80.7 - 98.3 fL 12/05/2022 5:23 PM [facility] MCH 22.4(L) 26.7 - 34.0 pg 12/05/2022 5:23 PM [facility] MCHC 30.8 30.8 - 35.9 g/dL 12/05/2022 5:23 PM [facility] RDW-SD 50.7(H) 36.0 - 50.0 fL 12/05/2022 5:23 PM [facility] RDW-CV 19.4(H) 11.2 - 14.8 % 12/05/2022 5:23 PM [facility] Platelet Count 493(H) 150 - 400 10? 3 /uL 12/05/2022 5:23 PM [facility] MPV 9.2(L) 9.4 - 12.9 fL 12/05/2022 5:23 PM [facility] nRBC Absolute 0.09(H) 0 10? 3 /uL 12/05/2022 5:23 PM [facility] nRBC Auto 0.5(H) 0 /100 WBC 12/05/2022 5:23 PM [facility] Blood BLOOD SPECIMEN / Unknown Venipuncture / Unknown 12/05/2022 5:03 PM LAW SECRETARY 12/05/2022 5:14 PM [facility] Ghassan Rene MD LAB - HEMATOLOGY ORD ERABLES Performing Organization Address [facility] Co de Phone Number [facility] [address] [place] [address], [facility] [phone] * (ABNORMAL) GLUCOSE - POINT OF CARE (12/05/2022 5:02 PM LAW SECRETARY) Glucose WB/POC 122(H) 70 - 115 mg/dL 12/05/2022 5:07 PM LAW SECRETARY [facility] Specimen Type Cap Fingerstick 2022 5:07 PM LAW SECRETARY [facility] Blood BLOOD SPECIMEN / Unknown 12/05/2022 5:02 PM LAW SECRETARY 12/05/2022 5:07 PM LAW SECRETARY Rafa Patel MD LAB - POINT OF CARE ORDERABLES Performing Organization Address [facility] Center/[facility] Co de Phone Number [facility] [address] [place] [phone], [facility] [phone] * PATHOLOGY TISSUE (12/05/2022 3:17 PM LAW SECRETARY) Case Report Surgical Pathology Report ? Case: [id number] ? Authorizing Provider: ??Graeme Rodgers MD ?Collected: ? 12/05/2022 03:17 PM ? Ordering Location: ? [facility] ?Received: ?12/06/2022 07:49 AM ? Pathologist: ? Alix Hope MD ? Specimen: ?Amputation Leg AK, Left above the knee amputation ? 12/10/2022 1:45 PM [facility] Final Diagnosis Leg, left, [id number] amputation (A): - Viable bone and soft tissue margins - No necrosis or osteomyelitis at prior amputation site - Arteries free of significant atherosclerosis 12/10/2022 1:45 PM [facility] Microscopic Description and Comment Microscopic examination substantiates the final diagnosis. 12/10/2022 1:45 PM [facility] Clinical History Patient is a 32-year-old woman with poorly controlled diabetes who initially presented with necrotizing fasciitis of left foot with amputation 12/02/2022. 12/10/2022 1:45 PM [facility] Gross Description Requisition and a [...] arteries are are patent and mildly calcified. Black Top Raker sections are submitted as follows: A1- claim representative shave of soft tissue and skin from the surgical margin closest to lesion A2-bone marrow margin A3-previous bony disarticulated A4-previous soft tissue margin A5-posterior vessels A6-anterior vessels MA 12/10/2022 1:45 PM [facility] Disclaimer The performance characteristics of all immunohistochemical and indirect immunofluorescence stains (if any) cited in this report were determined by the Histopathology Laboratory of [facility]. Some of these tests were developed by [...] the attending (teaching) pathologist. 12/10/2022 1:45 PM LAW SECRETARY [facility] Embedded Images 12/10/2022 1:45 PM LAW SECRETARY [facility] Gross only SPECIMEN OBTAINED BY AMPUTATION / Unknown 12/05/2022 3:17 PM LAW SECRETARY 12/06/2022 7:49 AM LAW SECRETARY Comment:Pre-op diagnosis: Gangrene Graeme Rodgers MD LAB - PATHOLOGY/CY TOLOGY ORDERABLES Performing Organization Address [facility]/ZIP Co de Phone Number [facility] [address] [place] [address], [facility] [phone] * HCG URINE QUALITATIVE - POCT (IP) INTERFACED (12/05/2022 1:46 PM LAW SECRETARY) HCG Qual Urine Negative Negative 12/05/2022 1:52 PM LAW SECRETARY [facility] Urine URINE / Unknown 12/05/2022 1 :46 PM LAW SECRETARY 12/05/2022 1:52 PM LAW SECRETARY Rafa Patel MD LAB - POINT OF CARE ORDERABLES Performing Organization Address [facility]/ZIP Co de Phone Number [address] [address], [place] [phone] * HCG URINE QUAL POCT NOTIFICATION (12/05/2022 1:39 PM LAW SECRETARY) Comment Notification Label Only - See Separate Report 12/05/2022 3:02 PM LAW SECRETARY [facility] Urine URINE / Unknown 12/05/2022 1 :39 PM LAW SECRETARY 12/05/2022 1:41 PM LAW SECRETARY Graeme Rodgers MD LAB - URINALYSIS O RDERABLES Performing Organization Address [facility]/ZIP Co de Phone Number [address] [address], [place] [phone] * (ABNORMAL) GLUCOSE - POINT OF CARE (12/05/2022 12:22 PM LAW SECRETARY) Glucose WB/POC 153(H) 70 - 115 mg/dL 12/05/2022 12:24 PM [facility] Specimen Type Cap Fingerstick 2022 12:24 PM [facility] Blood BLOOD SPECIMEN / Unknown 12/05/2022 12:22 PM LAW SECRETARY 12/05/2022 12:23 PM LAW SECRETARY Rafa Patel MD LAB - POINT OF CARE ORDERABLES [facility] [address] [place] [address], [facility] [phone] * (ABNORMAL) DIFFERENTIAL MANUAL (12/05/2022 10:06 AM LAW SECRETARY) Pathologist [facility] WBC (corrected for NRBC) 18.6 10? 3 /uL 12/05/2022 11:32 AM [facility] Total Cell Count 100 12/05/19 23 11:32 AM [facility] Neutrophils Absolute Manual 17.11(H) 1.60 - 7.00 10? 3 /uL 12/05/2022 11:32 AM [facility] Comment:(BANDS+SEGS) x WBC = NEUT # (ANC) Lymphocyte Absolute Manual 0.74(L) 1.10 - 3.90 10? 3 /uL 12/05/2022 11:32 AM [facility] Monocytes Absolute Manual 0.37 0.26 - 1.07 10? 3 /uL 12/05/2022 11:32 AM [facility] Eosinophils Absolute Manual 0.19 0.00 - 0.47 10? 3 /uL 12/05/2022 11:32 AM [facility] Neutrophil % Manual 92(H) 35 - 70 % 12/05/2022 11:32 AM [facility] Lymphocyte % Manual 4(L) 20 - 43 % 12/05/2022 11:32 AM [facility] Monocytes % Manual 2(L) 5 - 13 % 12/05/2022 11:32 AM [facility] Eosinophils % Manual 1 0 - 6 % 12/05/2022 11:32 AM [facility] Metamyelocyte % Manual 1(H) 0 % 12/05/2022 11:32 AM [facility] Platelet Estimate Increased (A) Adequate 12/05/2022 11:32 AM [facility] Anisocytosis 1+(A) None 12/05/2022 11:32 AM [facility] Microcytes Few(A) None 12/05/2022 11:32 AM [facility] Macrocytosis 1+(A) None 12/05/2022 11:32 AM [facility] Hypochromia 1+(A) None 12/05/2022 11:32 AM [facility] Polychromasia Occasiona l(A) None 12/05/2022 11:32 AM [facility] Target Cells 1+(A) None 12/05/2022 11:32 AM [facility] Ovalocytes Few(A) None 12/05/2022 11:32 AM [facility] [place] Cells 1+(A) None 12/05/2022 11:32 AM [facility] Blood BLOOD SPECIMEN / Unknown Lab Venipuncture / Unknown 12/05/2022 10:06 AM LAW SECRETARY 12/05/2022 10:34 AM [facility] Levi Cooper MD LAB - HEMATOLO GY ORDERABLES Performing Organization Address [facility]/State/[facility] Co de Phone Number [facility] [address] [place] [address], [facility] [phone] * (ABNORMAL) CBC W AUTO DIFFERENTIAL (12/05/2022 10:06 AM [facility]) WBC 18.6(H) 3.5 - 10.5 10? 3 /uL 12/05/2022 10:52 AM [facility] RBC 3.51(L) 3.80 - 5.20 10? 6 /uL 12/05/2022 10:52 AM [facility] Hemoglobin 7.8(L) 12.0 - 15.6 g/dL 12/05/2022 10:52 AM [facility] Hematocrit 25.8(L) 35.0 - 45.0 % 12/05/2022 10:52 AM [facility] MCV 73.5(L) 80.7 - 98.3 fL 12/05/2022 10:52 AM [facility] MCH 22.2(L) 26.7 - 34.0 pg 12/05/2022 10:52 AM [facility] MCHC 30.2(L) 30.8 - 35.9 g/dL 12/05/2022 10:52 AM [facility] RDW-SD 52.3(H) 36.0 - 50.0 fL 12/05/2022 10:52 AM [facility] RDW-CV 19.6(H) 11.2 - 14.8 % 12/05/2022 10:52 AM [facility] Platelet Count 583(H) 150 - 400 10? 3 /uL 12/05/2022 10:52 AM [facility] MPV 8.9(L) 9.4 - 12.9 fL 12/05/2022 10:52 AM [facility] nRBC Absolute 0.14(H) 0 10? 3 /uL 12/05/2022 10:52 AM [facility] nRBC Auto 0.8(H) 0 /100 WBC 12/05/2022 10:52 AM [facility] Blood BLOOD SPECIMEN / Unknown Lab Venipuncture / Unknown 12/05/2022 10:06 AM LAW SECRETARY 12/05/2022 10:34 AM [facility] Levi Cooper MD LAB - HEMATOLO GY ORDERABLES Performing Organization Address [facility]/State/[facility] Co de Phone Number [address] [address], [facility] [phone] * (ABNORMAL) BASIC METABOLIC PANEL (CALCIUM TOTAL) (12/05/2022 10:06 AM [facility]) BUN 37(H) 7 - 26 mg/dL 12/05/2022 12:06 PM [facility] Creatinine 2.67(H) 0.56 - 0.96 mg/dL 12/05/2022 12:06 PM [facility] Sodium 138 136 - 145 mmol/L 12/05/2022 12:06 PM [facility] Potassium 3.3(L) 3.5 - 4.5 mmol/L 12/05/2022 12:06 PM [facility] Chloride 117(H) 98 - 107 mmol/L 12/05/2022 12:06 PM [facility] CO2 19(L) 22 - 29 mmol/L 12/05/2022 12:06 PM [facility] Glucose 142(H) 70 - 115 mg/dL 12/05/2022 12:06 PM [facility] Calcium 6.7(L) 8.4 - 10.2 mg/dL 12/05/2022 12:06 PM [facility] Anion Gap 5(L) 8 - 18 12/05/2022 12:06 PM [facility] BUN/Creatinine Ratio 14 7 - 23 12/05/2022 12:06 PM [facility] Osmolality Calculated 297 270 - 300 mOsm/kg 12/05/2022 12:06 PM [facility] eGFR by CKD-EPI 24(L) >=90 mL/min/1.7 3 m2 12/05/2022 12:06 PM [facility] Blood BLOOD SPECIMEN / Unknown Lab Venipuncture / Unknown 12/05/2022 10:06 AM LAW SECRETARY 12/05/2022 10:34 AM LAW SECRETARY Levi Cooper MD LAB - CHEMISTR Y ORDERABLES [address] [address], [facility] [phone] * VANCOMYCIN LEVEL RANDOM (12/05/2022 10:06 AM LAW SECRETARY) Vancomycin Random 19.6 Therapeutic Ranges not established for random specimens ug/mL 12/05/2022 12:06 PM [facility] Blood BLOOD SPECIMEN / Unknown Lab Venipuncture / Unknown 12/05/2022 10:06 AM LAW SECRETARY 12/05/2022 10:34 AM LAW SECRETARY Narrative [facility] - 12/05/2022 12:06 PM LAW SECRETARY See institution protocol. Levi Cooper MD LAB - CHEMISTR Y ORDERABLES Performing Organization Address City/[facility]/ZIP Co de Phone Number [facility] [address] [place] [phone], [place] [phone] * (ABNORMAL) GLUCOSE - POINT OF CARE (12/05/2022 8:08 AM LAW SECRETARY) Glucose WB/POC 173(H) 70 - 115 mg/dL 12/05/2022 8:13 AM LAW SECRETARY [facility] Specimen Type Cap Fingerstick 2022 8:13 AM [facility] Blood BLOOD SPECIMEN / Unknown 12/05/2022 8:08 AM LAW SECRETARY 12/05/2022 8:12 AM LAW SECRETARY Rafa Patel MD LAB - POINT OF CARE ORDERABLES Performing Organization Address [facility]/ZIP Co de Phone Number [address] [address], [place] [phone] * (ABNORMAL) GLUCOSE - POINT OF CARE (12/05/2022 2:17 AM LAW SECRETARY) Glucose WB/POC 368(H) 70 - 115 mg/dL 12/05/2022 2:31 AM [facility] Specimen Type Cap Fingerstick 2022 2:31 AM [facility] Blood BLOOD SPECIMEN / Unknown 12/05/2022 2:17 AM LAW SECRETARY 12/05/2022 2:31 AM LAW SECRETARY Rafa Patel MD LAB - POINT OF CARE ORDERABLES Performing Organization Address City/[facility]/ZIP Co de Phone Number [address] [address], [place] [phone] * (ABNORMAL) GLUCOSE - POINT OF CARE (12/04/2022 11:15 PM LAW SECRETARY) Glucose WB/POC 315(H) 70 - 115 mg/dL 12/04/2022 11:17 PM LAW SECRETARY [facility] Specimen Type Cap Fingerstick 2022 11:17 PM LAW SECRETARY [facility] Blood BLOOD SPECIMEN / Unknown 12/04/2022 11:15 PM LAW SECRETARY 12/04/2022 11:17 PM LAW SECRETARY Rafa Patel MD LAB - POINT OF CARE ORDERABLES [address] [address], [place] [phone] * (ABNORMAL) GLUCOSE - POINT OF CARE (12/04/2022 8:47 PM LAW SECRETARY) Glucose WB/POC 290(H) 70 - 115 mg/dL 12/04/2022 8:52 PM LAW SECRETARY [facility] Specimen Type Cap Fingerstick 2022 8:52 PM LAW SECRETARY [facility] Blood BLOOD SPECIMEN / Unknown 12/04/2022 8:47 PM LAW SECRETARY 12/04/2022 8:51 PM LAW SECRETARY Rafa Patel MD LAB - POINT OF CARE ORDERABLES Performing Organization Address City/[facility]/ZIP Co de Phone Number [address] [address], [place] [phone] * (ABNORMAL) GLUCOSE - POINT OF CARE (12/04/2022 5:10 PM LAW SECRETARY) Glucose WB/POC 251(H) 70 - 115 mg/dL 12/04/2022 5:11 PM LAW SECRETARY [facility] Specimen Type Cap Fingerstick 2022 5:11 PM LAW SECRETARY [facility] Blood BLOOD SPECIMEN / Unknown 12/04/2022 5:10 PM LAW SECRETARY 12/04/2022 5:11 PM LAW SECRETARY Levi Cooper MD LAB - POINT OF CARE ORDERABLES Performing Organization Address City/[facility]/ZIP Co de Phone Number [address] [address], [place] [phone] * MAGNESIUM BLOOD (12/04/2022 4:05 PM LAW SECRETARY) Magnesium 2.3 1.6 - 2.6 mg/dL 12/04/2022 4:42 PM [facility] Blood BLOOD SPECIMEN / Unknown Lab Venipuncture / Unknown 12/04/2022 4:05 PM LAW SECRETARY 12/04/2022 4:16 PM LAW SECRETARY Levi Cooper MD LAB - CHEMISTR Y ORDERABLES [facility] [address] [place] [address], [facility] [phone] * (ABNORMAL) BASIC METABOLIC PANEL (CALCIUM TOTAL) (12/04/2022 4:05 PM LAW SECRETARY) BUN 36(H) 7 - 26 mg/dL 12/04/2022 4:42 PM [facility] Creatinine 3.31(H) 0.56 - 0.96 mg/dL 12/04/2022 4:42 PM [facility] Sodium 141 136 - 145 mmol/L 12/04/2022 4:42 PM [facility] Potassium 4.3 3.5 - 4.5 mmol/L 12/04/2022 4:42 PM [facility] Chloride 109(H) 98 - 107 mmol/L 12/04/2022 4:42 PM [facility] CO2 16(L) 22 - 29 mmol/L 12/04/2022 4:42 PM [facility] Glucose 238(H) 70 - 115 mg/dL 12/04/2022 4:42 PM [facility] Calcium 7.3(L) 8.4 - 10.2 mg/dL 12/04/2022 4:42 PM [facility] Anion Gap 20(H) 8 - 18 12/04/2022 4:42 PM [facility] BUN/Creatinine Ratio 11 7 - 23 12/04/2022 4:42 PM [facility] Osmolality Calculated 308(H) 270 - 300 mOsm/kg 12/04/2022 4:42 PM [facility] eGFR by CKD-EPI 18(L) >=90 mL/min/1.7 3 m2 12/04/2022 4:42 PM [facility] Blood BLOOD SPECIMEN / Unknown Lab Venipuncture / Unknown 12/04/2022 4:05 PM LAW SECRETARY 12/04/2022 4:16 PM LAW SECRETARY Levi Cooper MD LAB - CHEMISTR Y ORDERABLES Performing Organization Address City/[facility]/ZIP Co de Phone Number [facility] [address] [place] [address], [place] [phone] * (ABNORMAL) GLUCOSE - POINT OF CARE (12/04/2022 11:40 AM LAW SECRETARY) Glucose WB/POC 246(H) 70 - 115 mg/dL 12/04/2022 11:42 AM LAW SECRETARY [facility] Specimen Type Cap Fingerstick 2022 11:42 AM [facility] Blood BLOOD SPECIMEN / Unknown 12/04/2022 11:40 AM LAW SECRETARY 12/04/2022 11:42 AM LAW SECRETARY Levi Cooper MD LAB - POINT OF CARE ORDERABLES Performing Organization Address [facility]/ZIP Co de Phone Number [address] [address], [place] [phone] * (ABNORMAL) GLUCOSE - POINT OF CARE (12/04/2022 8:09 AM LAW SECRETARY) Pathologist [facility] Glucose WB/POC 252(H) 70 - 115 mg/dL 12/04/2022 8:10 AM [facility] Specimen Type Cap Fingerstick 2022 8:10 AM [facility] Blood BLOOD SPECIMEN / Unknown 12/04/2022 8:09 AM LAW SECRETARY 12/04/2022 8:10 AM LAW SECRETARY Levi Cooper MD LAB - POINT OF CARE ORDERABLES Performing Organization Address City/[facility]/ZIP Co de Phone Number [address] [address], [place] [phone] * VANCOMYCIN LEVEL RANDOM (12/04/2022 3:58 AM LAW SECRETARY) Vancomycin Random 18.8 Therapeutic Ranges not established for random specimens ug/mL 12/04/2022 4:34 AM LAW SECRETARY [facility] Blood BLOOD SPECIMEN / Unknown Venipuncture / Unknown 12/04/2022 3:58 AM LAW SECRETARY 12/04/2022 4:03 AM LAW SECRETARY Narrative [facility] - 12/04/2022 4:34 AM LAW SECRETARY See institution protocol. Geronimo Ho MD LAB - CHEMISTRY OR DERABLES Performing Organization Address City/[facility]/ZIP Co de Phone Number [address] [address], [facility] [phone] * PHOSPHORUS BLOOD (12/04/2022 3:58 AM LAW SECRETARY) Phosphorus 5.1 2.9 - 5.1 mg/dL 12/04/2022 4:34 AM LAW SECRETARY [facility] Blood BLOOD SPECIMEN / Unknown Venipuncture / Unknown 12/04/2022 3:58 AM LAW SECRETARY 12/04/2022 4:03 AM LAW SECRETARY Levi Cooper MD LAB - CHEMISTR Y ORDERABLES Performing Organization Address [facility]/ZIP Co de Phone Number [address] [address], [facility] [phone] * MAGNESIUM BLOOD (12/04/2022 3:58 AM LAW SECRETARY) Magnesium 2.3 1.6 - 2.6 mg/dL 12/04/2022 4:34 AM LAW SECRETARY [facility] Blood BLOOD SPECIMEN / Unknown Venipuncture / Unknown 12/04/2022 3:58 AM LAW SECRETARY 12/04/2022 4:03 AM LAW SECRETARY Levi Cooper MD LAB - CHEMISTR Y ORDERABLES Performing Organization Address [facility]/ZIP Co de Phone Number [address] [address], [facility] [phone] * (ABNORMAL) CBC W AUTO DIFFERENTIAL (12/04/2022 3:58 AM LAW SECRETARY) WBC 24.8(H) 3.5 - 10.5 10? 3 /uL 12/04/2022 4:11 AM [facility] RBC 3.65(L) 3.80 - 5.20 10? 6 /uL 12/04/2022 4:11 AM [facility] Hemoglobin 8.2(L) 12.0 - 15.6 g/dL 12/04/2022 4:11 AM [facility] Hematocrit 28.0(L) 35.0 - 45.0 % 12/04/2022 4:11 AM [facility] MCV 76.7(L) 80.7 - 98.3 fL 12/04/2022 4:11 AM [facility] MCH 22.5(L) 26.7 - 34.0 pg 12/04/2022 4:11 AM [facility] MCHC 29.3(L) 30.8 - 35.9 g/dL 12/04/2022 4:11 AM [facility] RDW-SD 54.7(H) 36.0 - 50.0 fL 12/04/2022 4:11 AM [facility] RDW-CV 19.9(H) 11.2 - 14.8 % 12/04/2022 4:11 AM [facility] Platelet Count 446(H) 150 - 400 10? 3 /uL 12/04/2022 4:11 AM [facility] MPV 8.7(L) 9.4 - 12.9 fL 12/04/2022 4:11 AM [facility] nRBC Absolute 0.06(H) 0 10? 3 /uL 12/04/2022 4:11 AM [facility] nRBC Auto 0.2(H) 0 /100 WBC 12/04/2022 4:11 AM [facility] Neutrophils % 79.0(H) 35.0 - 70.0 % 12/04/2022 4:11 AM [facility] Lymphocytes % 9.2(L) 20.0 - 43.0 % 12/04/2022 4:11 AM [facility] Monocytes % 5.8 5.0 - 13.0 % 12/04/2022 4:11 AM [facility] Eosinophils % 1.2 0.0 - 6.0 % 12/04/2022 4:11 AM [facility] Basophil % 0.4 0.0 - 2.0 % 12/04/2022 4:11 AM [facility] Neutrophils Absolute 19.59(H) 1.60 - 7.00 10? 3 /uL 12/04/2022 4:11 AM [facility] Lymphocyte Absolute 2.29 1.10 - 3.90 10? 3 /uL 12/04/2022 4:11 AM [facility] Monocytes Absolute 1.43(H) 0.26 - 1.07 10? 3 /uL 12/04/2022 4:11 AM [facility] Eosinophils Absolute 0.29 0.00 - 0.47 10? 3 /uL 12/04/2022 4:11 AM [facility] Basophils Absolute 0.10(H) 0.00 - 0.08 10? 3 /uL 12/04/2022 4:11 AM [facility] Immature Granulocytes % 4.4(H) 0.0 - 1.0 % 12/04/2022 4:11 AM [facility] Immature Granulocytes Absolute 1.09 12/04/2022 4:11 AM [facility] Blood BLOOD SPECIMEN / Unknown Venipuncture / Unknown 12/04/2022 3:58 AM LAW SECRETARY 12/04/2022 4:03 AM [facility] Levi Cooper MD LAB - HEMATOLO GY ORDERABLES Performing Organization Address City/State/[facility] Co de Phone Number [facility] [address] [place] [address], [facility] [phone] * (ABNORMAL) BASIC METABOLIC PANEL (CALCIUM TOTAL) (12/04/2022 3:58 AM LAW SECRETARY) BUN 35(H) 7 - 26 mg/dL 12/04/2022 4:34 AM [facility] Creatinine 3.24(H) 0.56 - 0.96 mg/dL 12/04/2022 4:34 AM [facility] Sodium 137 136 - 145 mmol/L 12/04/2022 4:34 AM [facility] Potassium 3.6 3.5 - 4.5 mmol/L 12/04/2022 4:34 AM [facility] Chloride 108(H) 98 - 107 mmol/L 12/04/2022 4:34 AM [facility] CO2 17(L) 22 - 29 mmol/L 12/04/2022 4:34 AM [facility] Glucose 210(H) 70 - 115 mg/dL 12/04/2022 4:34 AM [facility] Calcium 7.3(L) 8.4 - 10.2 mg/dL 12/04/2022 4:34 AM [facility] Anion Gap 16 8 - 18 12/04/2022 4:34 AM [facility] BUN/Creatinine Ratio 11 7 - 23 12/04/2022 4:34 AM [facility] Osmolality Calculated 298 270 - 300 mOsm/kg 12/04/2022 4:34 AM [facility] eGFR by CKD-EPI 19(L) >=90 mL/min/1.7 3 m2 12/04/2022 4:34 AM [facility] Blood BLOOD SPECIMEN / Unknown Venipuncture / Unknown 12/04/2022 3:58 AM LAW SECRETARY 12/04/2022 4:03 AM LAW SECRETARY Levi Cooper MD LAB - CHEMISTR Y ORDERABLES [address] [address], [facility] [phone] * (ABNORMAL) GLUCOSE - POINT OF CARE (12/03/2022 11:18 PM LAW SECRETARY) Glucose WB/POC 229(H) 70 - 115 mg/dL 12/03/2022 11:22 PM [facility] Specimen Type Venous 12/03/2022 11:22 PM [facility] Blood BLOOD SPECIMEN / Unknown 12/03/2022 11:18 PM LAW SECRETARY 12/03/2022 11:22 PM LAW SECRETARY Levi Cooper MD LAB - POINT OF CARE ORDERABLES [address] [place] [address], [facility] [phone] * (ABNORMAL) BASIC METABOLIC PANEL (CALCIUM TOTAL) (12/03/2022 11:13 PM LAW SECRETARY) BUN 33(H) 7 - 26 mg/dL 12/03/2022 11:57 PM [facility] Creatinine 3.18(H) 0.56 - 0.96 mg/dL 12/03/2022 11:57 PM [facility] Sodium 134(L) 136 - 145 mmol/L 12/03/2022 11:57 PM [facility] Potassium 3.6 3.5 - 4.5 mmol/L 12/03/2022 11:57 PM [facility] Chloride 106 98 - 107 mmol/L 12/03/2022 11:57 PM [facility] CO2 18(L) 22 - 29 mmol/L 12/03/2022 11:57 PM [facility] Glucose 217(H) 70 - 115 mg/dL 12/03/2022 11:57 PM [facility] Calcium 7.3(L) 8.4 - 10.2 mg/dL 12/03/2022 11:57 PM [facility] Anion Gap 14 8 - 18 12/03/2022 11:57 PM [facility] BUN/Creatinine Ratio 10 7 - 23 12/03/2022 11:57 PM [facility] Osmolality Calculated 292 270 - 300 mOsm/kg 12/03/2022 11:57 PM [facility] eGFR by CKD-EPI 19(L) >=90 mL/min/1.7 3 m2 12/03/2022 11:57 PM [facility] Blood BLOOD SPECIMEN / Unknown Venipuncture / Unknown 12/03/2022 11:13 PM LAW SECRETARY 12/03/2022 11:25 PM [facility] Levi Cooper MD LAB - CHEMISTR Y ORDERABLES [address] [address], [facility] [phone] * (ABNORMAL) DIFFERENTIAL MANUAL (12/03/2022 6:57 PM LAW SECRETARY) WBC (corrected for NRBC) 35.3 10? 3 /uL 12/03/2022 8:09 PM [facility] Total Cell Count 100 12/03/19 23 8:09 PM [facility] Neutrophils Absolute Manual 29.65(H) 1.60 - 7.00 10? 3 /uL 12/03/2022 8:09 PM [facility] Comment:(BANDS+SEGS) x WBC = NEUT # (ANC) Lymphocyte Absolute Manual 3.53 1.10 - 3.90 10? 3 /uL 12/03/2022 8:09 PM [facility] Monocytes Absolute Manual 2.12(H) 0.26 - 1.07 10? 3 /uL 12/03/2022 8:09 PM [facility] Band % Manual 1 0 - 10 % 12/03/2022 8:09 PM [facility] Neutrophil % Manual 83(H) 35 - 70 % 12/03/2022 8:09 PM [facility] Lymphocyte % Manual 10(L) 20 - 43 % 12/03/2022 8:09 PM [facility] Monocytes % Manual 6 5 - 13 % 12/03/2022 8:09 PM [facility] nRBC Manual 1(H) 0 /100 WBC 12/03/2022 8:09 PM [facility] Platelet Estimate Slightly Increased(A ) Adequate 12/03/2022 8:09 PM [facility] Anisocytosis 1+(A) None 12/03/2022 8:09 PM [facility] Microcytes 1+(A) None 12/03/2022 8:09 PM [facility] Hypochromia Few(A) None 12/03/2022 8:09 PM [facility] Polychromasia Rare(A) None 12/03/2022 8:09 PM [facility] Target Cells 1+(A) None 12/03/2022 8:09 PM [facility] Schistocytes Few(A) None 12/03/2022 8:09 PM [facility] Ovalocytes Occasional( A) None 12/03/2022 8:09 PM [facility] Blood BLOOD SPECIMEN / Unknown Venipuncture / Unknown 12/03/2022 6:57 PM LAW SECRETARY 12/03/2022 6:57 PM LAW SECRETARY Levi Cooper MD LAB - HEMATOLO GY ORDERABLES Performing Organization Address [facility]/State/ZIP Co de Phone Number [facility] [address] [place] [address], [facility] [phone] * (ABNORMAL) CBC W AUTO DIFFERENTIAL (12/03/2022 6:57 PM LAW SECRETARY) WBC 35.3(H) 3.5 - 10.5 10? 3 /uL 12/03/2022 7:10 PM [facility] RBC 3.58(L) 3.80 - 5.20 10? 6 /uL 12/03/2022 7:10 PM [facility] Hemoglobin 8.2(L) 12.0 - 15.6 g/dL 12/03/2022 7:10 PM [facility] Hematocrit 26.0(L) 35.0 - 45.0 % 12/03/2022 7:10 PM [facility] MCV 72.6(L) 80.7 - 98.3 fL 12/03/2022 7:10 PM [facility] MCH 22.9(L) 26.7 - 34.0 pg 12/03/2022 7:10 PM [facility] MCHC 31.5 30.8 - 35.9 g/dL 12/03/2022 7:10 PM [facility] RDW-SD 49.9 36.0 - 50.0 fL 12/03/2022 7:10 PM [facility] RDW-CV 19.0(H) 11.2 - 14.8 % 12/03/2022 7:10 PM [facility] Platelet Count 474(H) 150 - 400 10? 3 /uL 12/03/2022 7:10 PM [facility] MPV 9.2(L) 9.4 - 12.9 fL 12/03/2022 7:10 PM [facility] nRBC Absolute 0.04(H) 0 10? 3 /uL 12/03/2022 7:10 PM [facility] nRBC Auto 0.1(H) 0 /100 WBC 12/03/2022 7:10 PM LAW SECRETARY [facility] Blood BLOOD SPECIMEN / Unknown Venipuncture / Unknown 12/03/2022 6:57 PM LAW SECRETARY 12/03/2022 6:57 PM LAW SECRETARY Levi Cooper MD LAB - HEMATOLO GY ORDERABLES Performing Organization Address [facility]/ZIP Co de Phone Number [address] [address], [place] [phone] * LACTIC ACID BLOOD (12/03/2022 6:57 PM LAW SECRETARY) Lactic Acid-Stat 0.7 <=2.0 mmol/L 12/03/2022 7:23 PM LAW SECRETARY [facility] Blood BLOOD SPECIMEN / Unknown Venipuncture / Unknown 12/03/2022 6:57 PM LAW SECRETARY 12/03/2022 6:58 PM LAW SECRETARY Levi Cooper MD LAB - CHEMISTR Y ORDERABLES Performing Organization Address [facility]/ZIP Co de Phone Number [address] [address], [place] [phone] * VANCOMYCIN LEVEL RANDOM (12/03/2022 6:57 PM LAW SECRETARY) Pathologist [facility] Vancomycin Random 20.8 Therapeutic Ranges not established for random specimens ug/mL 12/03/2022 7:25 PM LAW SECRETARY [facility] Blood BLOOD SPECIMEN / Unknown Venipuncture / Unknown 12/03/2022 6:57 PM LAW SECRETARY 12/03/2022 6:57 PM LAW SECRETARY Narrative [facility] - 12/03/2022 7:25 PM LAW SECRETARY See institution protocol. Himanshu Espino MD LAB - CHEMISTRY DIVINA OLVERA Performing Organization Address City/[facility]/ZIP Co de Phone Number [address] [address], [place] [phone] * (ABNORMAL) BLOOD GASES SUZANNE + COOX PANEL (12/03/2022 6:56 PM LAW SECRETARY) pH Venous 7.28(L) 7.32 - 7.42 pH 12/03/2022 6:59 PM [facility] pO2 Venous 88(H) 35 - 40 mmHg 12/03/2022 6:59 PM [facility] pCO2 Venous 44 40 - 50 mmHg 12/03/2022 6:59 PM [facility] HCO3 Venous 20.7 20 - 30 mmol/L 12/03/2022 6:59 PM [facility] Base Excess Venous -5.7(L) -2.0 - 2.0 mmol/L 12/03/2022 6:59 PM [facility] Oxyhemoglobin Venous 95.0 % 11/05 6:59 PM [facility] Deoxyhemoglobin (HHB) Venous % 2.5 % 12/03/2022 6:59 PM [facility] Methemoglobin <0.8 0.0 - 2.0 % 12/03/2022 6:59 PM [facility] Carboxyhemoglobin 2.0 0.0 - 2.0 % 2022 6:59 PM [facility] O2 Content Venous 11.8 Interpret within clinical context ml/dL 12/03/2022 6:59 PM [facility] Hemoglobin by COOX 8.7(L) 12.0 - 15.6 g/dL 12/03/2022 6:59 PM [facility] O2 Saturation Venous 97 >=70 % 11/05 6:59 PM [facility] FI O2 Mixed Venous 28.0 % 2022 6:59 PM [facility] Blood BLOOD SPECIMEN / Unknown Venipuncture / Unknown 12/03/2022 6:56 PM LAW SECRETARY 12/03/2022 6:[address] [facility] - 12/03/2022 6:59 PM [facility] Carboxyhemoglobin Normal Concentration: Non-smokers: 0-2%; Smokers: 0-9%; Toxic: >20% Levi Cooper MD LAB - BLOOD GA SES ORDERABLES [address] [address], [place] [phone] * (ABNORMAL) GLUCOSE - POINT OF CARE (12/03/2022 6:22 PM LAW SECRETARY) [facility] Glucose WB/POC 197(H) 70 - 115 mg/dL 12/03/2022 6:26 PM [facility] Specimen Type Cap Fingerstick 2022 6:26 PM [facility] Blood BLOOD SPECIMEN / Unknown 12/03/2022 6:22 PM LAW SECRETARY 12/03/2022 6:26 PM LAW SECRETARY Levi Cooper MD LAB - POINT OF CARE ORDERABLES [address] [address], [facility] [phone] * (ABNORMAL) BASIC METABOLIC PANEL (CALCIUM TOTAL) (12/03/2022 5:07 PM LAW SECRETARY) [facility] BUN 31(H) 7 - 26 mg/dL 12/03/2022 5:45 PM [facility] Creatinine 3.14(H) 0.56 - 0.96 mg/dL 12/03/2022 5:45 PM [facility] Sodium 137 136 - 145 mmol/L 12/03/2022 5:45 PM [facility] Potassium 3.6 3.5 - 4.5 mmol/L 12/03/2022 5:45 PM [facility] Chloride 107 98 - 107 mmol/L 12/03/2022 5:45 PM [facility] CO2 15(L) 22 - 29 mmol/L 12/03/2022 5:45 PM [facility] Glucose 166(H) 70 - 115 mg/dL 12/03/2022 5:45 PM [facility] Calcium 7.5(L) 8.4 - 10.2 mg/dL 12/03/2022 5:45 PM [facility] Anion Gap 19(H) 8 - 18 12/03/2022 5:45 PM [facility] BUN/Creatinine Ratio 10 7 - 23 12/03/2022 5:45 PM [facility] Osmolality Calculated 294 270 - 300 mOsm/kg 12/03/2022 5:45 PM [facility] eGFR by CKD-EPI 20(L) >=90 mL/min/1.7 3 m2 12/03/2022 5:45 PM [facility] Blood BLOOD SPECIMEN / Unknown Venipuncture / Unknown 12/03/2022 5:07 PM LAW SECRETARY 12/03/2022 5:17 PM LAW SECRETARY Levi Cooper MD LAB - CHEMISTR Y ORDERABLES [facility] [address] [place] [address], [place] [phone] * UREA NITROGEN URINE RANDOM (12/03/2022 4:59 PM LAW SECRETARY) Urea Nitrogen Random Urine 397 Not Established mg/dL 12/03/2022 5:59 PM [facility] Urine URINE SPECIMEN OBTAINED BY CLEAN CATCH PROCEDURE / Unknown Collection / Unknown 12/03/2022 4:59 PM LAW SECRETARY 12/03/2022 5:14 PM LAW SECRETARY Graeme Rodgers MD LAB - URINE CHEMIS TRY ORDERABLES Performing Organization Address [facility]/ZIP Co de Phone Number [facility] [address] [place] [address], [place] [phone] * (ABNORMAL) URINALYSIS REFLEX TO MICROSCOPIC NO CULTURE (12/03/2022 4:59 PM LAW SECRETARY) Color UA Lesly(A) Straw, Yellow 12/03/2022 5:57 PM [facility] Clarity UA Slt Cloudy(A) Clear 12/03/2022 5:57 PM [facility] Specific [place] UA 1.025 1.005 - 1.030 12/03/2022 5:57 PM [facility] pH UA 5.0 5.0 - 8.0 pH 12/03/2022 5:57 PM [facility] Protein UA 3+(A) Negative 12/03/2022 5:57 PM [facility] Glucose UA Negative Negative 12/03/2022 5:57 PM [facility] Ketone UA Negative Negative 12/03/2022 5:57 PM [facility] Bilirubin UA 2+(A) Negative 12/03/2022 5:57 PM [facility] Comment:Urine Bilirubin resu lt confirmed by manual Ictotest. Blood UA 2+(A) Negative 12/03/2022 5:57 PM [facility] Nitrite UA Negative Negative 12/03/2022 5:57 PM [facility] Leukocyte Esterase Negative Negative 12/03/2022 5:57 PM [facility] Urobilinogen UA Negative Negative mg/dL 12/03/2022 5:57 PM [facility] RBC UA 11-20(A) None Seen, 0-2, 3-5 /HPF 12/03/2022 5:57 PM [facility] WBC UA 6-10(A) None Seen, 0-5 /HPF 12/03/2022 5:57 PM [facility] Bacteria UA Trace(A) None /HPF 12/03/2022 5:57 PM [facility] Squamous Epithelial Cells UA 3-5 None Seen, 0-2, 3-5 /HPF 12/03/2022 5:57 PM [facility] Mucus UA 1+ /LPF 12/03/2022 5:57 PM [facility] Hyaline Casts UA 6-10(A) None Seen, 0-2 /LPF 12/03/2022 5:57 PM [facility] Granular Casts UA 3-5(A) None Seen /LPF 12/03/2022 5:57 PM [facility] Amorphous Crystals Rare(A) None /HPF 12/03/2022 5:57 PM [facility] Urine URINE SPECIMEN OBTAINED BY CLEAN CATCH PROCEDURE / Unknown Collection / Unknown 12/03/2022 4:59 PM LAW SECRETARY 12/03/2022 5:[address] [facility] - 12/03/2022 5:57 PM LAW SECRETARY Graeme Rodgers MD LAB - URINALYSIS O RDERABLES [facility] [address] [place] [address], [facility] [phone] * CREATININE URINE RANDOM (12/03/2022 4:59 PM LAW SECRETARY) Creatinine Urine 227 Not Established mg/dL 12/03/2022 6:01 PM [facility] Urine URINE SPECIMEN OBTAINED BY CLEAN CATCH PROCEDURE / Unknown Collection / Unknown 12/03/2022 4:59 PM LAW SECRETARY 12/03/2022 5:14 PM LAW SECRETARY Himanshu Espino MD LAB - URINE CHEMISTR Y ORDERABLES [address] [address], [facility] [phone] * LYTES (NA K CL) URINE RANDOM PANEL (12/03/2022 4:59 PM LAW SECRETARY) Sodium Urine <20 Not Established mmol/L 12/03/2022 6:01 PM [facility] Potassium Urine 26.9 Not Established mmol/L 12/03/2022 6:01 PM [facility] Chloride Random Urine <20 Not Established mmol/L 12/03/2022 6:01 PM [facility] Urine URINE SPECIMEN OBTAINED BY CLEAN CATCH PROCEDURE / Unknown Collection / Unknown 12/03/2022 4:59 PM LAW SECRETARY 12/03/2022 5:14 PM LAW SECRETARY Himanshu Espino MD LAB - URINE CHEMISTR Y ORDERABLES [address] [address], [facility] [phone] * (ABNORMAL) GLUCOSE - POINT OF CARE (12/03/2022 1:29 PM LAW SECRETARY) Glucose WB/POC 156(H) 70 - 115 mg/dL 12/03/2022 1:34 PM [facility] Specimen Type Cap Fingerstick 2022 1:34 PM [facility] Blood BLOOD SPECIMEN / Unknown 12/03/2022 1:29 PM LAW SECRETARY 12/03/2022 1:34 PM LAW SECRETARY Levi Cooper MD LAB - POINT OF CARE ORDERABLES Performing Organization Address City/[facility]/ZIP Co de Phone Number [address] [address], [place] [phone] * (ABNORMAL) HEMOGLOBIN (12/03/2022 9:43 AM LAW SECRETARY) [facility] Hemoglobin 8.2(L) 12.0 - 15.6 g/dL 12/03/2022 9:58 AM LAW SECRETARY [facility] Blood BLOOD SPECIMEN / Unknown Venipuncture / Unknown 12/03/2022 9:43 AM LAW SECRETARY 12/03/2022 9:47 AM LAW SECRETARY Tommie Echevarria MD LAB - HEMATOLOGY ORD ERABLES Performing Organization Address City/[facility]/ZIP Co de Phone Number [address] [address], [place] [phone] * (ABNORMAL) GLUCOSE - POINT OF CARE (12/03/2022 7:40 AM LAW SECRETARY) [facility] Glucose WB/POC 130(H) 70 - 115 mg/dL 12/03/2022 7:41 AM LAW SECRETARY [facility] Specimen Type Cap Fingerstick 2022 7:41 AM LAW SECRETARY [facility] Blood BLOOD SPECIMEN / Unknown 12/03/2022 7:40 AM LAW SECRETARY 12/03/2022 7:41 AM LAW SECRETARY Tommie Echevarria MD LAB - POINT OF CARE ORDERABLES Performing Organization Address City/[facility]/ZIP Co de Phone Number [address] [address], [place] [phone] * PREPARE (CROSSMATCH) RBC UNIT(S), 1 Units (12/03/2022 5:34 AM LAW SECRETARY) [facility] Unit Description AS1 LR PRBC [facility] BLOOD BANK LAB Unit ABO A [facility] BLOOD BANK LAB Unit Rh POS [facility] BLOOD BANK LAB Product Number R44 [facility] B LOOD BANK LAB Unit Donor # [id number] [facility] BLOOD BANK LAB Unit Status transfused [facility] BLO OD BANK LAB Product Code [id number] [facility] BLO OD BANK LAB Blood Type Barcode 6200 [facility] BLOOD BANK LAB Expiration Date [id number] S BLOOD BANK LAB Blood Bank BLOOD SPECIMEN / Unknown 12/03/2022 2:48 AM LAW SECRETARY Tommie Echevarria MD LAB - BLOOD BANK ORD ERABLES Performing Organization Address City/[facility]/ZIP Co de Phone Number [facility] BLOOD BANK LAB [address] [place] [address], [facility] [phone] * BLOOD TYPE VERIFICATION (12/03/2022 4:10 AM LAW SECRETARY) ABO Rh A POS 12/03/2022 4:4 9 AM LAW SECRETARY [facility] BLOOD BANK LAB Blood Bank BLOOD SPECIMEN / Unknown Venipuncture / Unknown 12/03/2022 4:10 AM LAW SECRETARY 12/03/2022 4:18 AM LAW SECRETARY Gail Montero MD LAB - BLOOD BANK ORD [employer] Performing Organization Address [facility]/ZIP Co de Phone Number [facility] BLOOD BANK LAB [facility] [place] [address], [facility] [phone] * EKG 12-LEAD (12/03/2022 3:00 AM LAW SECRETARY) Ventricular Rate 77 BPM [facility] MUSE Atrial Rate 77 BPM [facility] MUSE P-R Interval 154 ms [facility] MUSE QRS Duration ms 88 ms [facility] MUSE Q-T Interval ms 416 ms [facility] MUSE QTC Calculation (Bezet) 470 ms [facility] MUSE Calculated P [place] 44 degrees [facility] MUSE Calculated R [place] 14 degrees [facility] MUSE Calculated T [place] 23 degrees [facility] MUSE Interpretation EKG NORMAL SINUS RHYTHM NORMAL ECG WHEN COMPARED WITH ECG OF 21-aug-2022 NO SIGNIFICANT CHANGE WAS FOUND Confirmed by HIRAL HIGGINS MD ([id number]) on 12/09/2022 1:25:51 PM [facility] MUSE 12/03/2022 3:00 AM LAW SECRETARY 12/09/2022 1:25 PM LAW SECRETARY Trisha Rodríguez PA-C ECG ORDERABLES [facility] [place] * (ABNORMAL) DIFFERENTIAL MANUAL (12/03/2022 2:42 AM [facility]) WBC (corrected for NRBC) 37.1 10? 3 /uL 12/03/2022 3:27 AM [facility] Total Cell Count 100 12/03/19 3:27 AM [facility] Neutrophils Absolute Manual 34.50(H) 1.60 - 7.00 10? 3 /uL 12/03/2022 3:27 AM [facility] Comment:(BANDS+SEGS) x WBC = NEUT # (ANC) Lymphocyte Absolute Manual 1.48 1.10 - 3.90 10? 3 /uL 12/03/2022 3:27 AM [facility] Monocytes Absolute Manual 1.11(H) 0.26 - 1.07 10? 3 /uL 12/03/2022 3:27 AM [facility] Band % Manual 2 0 - 10 % 12/03/2022 3:27 AM [facility] Neutrophil % Manual 91(H) 35 - 70 % 12/03/2022 3:27 AM [facility] Lymphocyte % Manual 4(L) 20 - 43 % 12/03/2022 3:27 AM [facility] Monocytes % Manual 3(L) 5 - 13 % 12/03/2022 3:27 AM [facility] Platelet Estimate Increased (A) Adequate 12/03/2022 3:27 AM [facility] Anisocytosis 1+(A) None 12/03/2022 3:27 AM [facility] Microcytes 2+(A) None 12/03/2022 3:27 AM [facility] Target Cells 2+(A) None 12/03/2022 3:27 AM [facility] Carli Cells 1+(A) None 12/03/2022 3:27 AM [facility] Blood BLOOD SPECIMEN / Unknown Venipuncture / Unknown 12/03/2022 2:42 AM LAW SECRETARY 12/03/2022 2:48 AM LAW SECRETARY Narrative Authorizing Provider Result Alexis Rodgers MD LAB - HEMATOLOGY O RDERABLES Performing Organization Address [facility]/ZIP Co de Phone Number [address] [address], [facility] [phone] * PHOSPHORUS BLOOD (12/03/2022 2:42 AM LAW SECRETARY) Phosphorus 4.4 2.9 - 5.1 mg/dL 12/03/2022 3:46 AM LAW SECRETARY [facility] Blood BLOOD SPECIMEN / Unknown Venipuncture / Unknown 12/03/2022 2:42 AM LAW SECRETARY 12/03/2022 2:48 AM LAW SECRETARY Narrative Authorizing Provider Result Alexis Rodgers MD LAB - CHEMISTRY OR DERABLES Performing Organization Address [facility] Co de Phone Number [address] [address], [facility] [phone] * MAGNESIUM BLOOD (12/03/2022 2:42 AM LAW SECRETARY) Magnesium 2.2 1.6 - 2.6 mg/dL 12/03/2022 3:46 AM LAW SECRETARY [facility] Blood BLOOD SPECIMEN / Unknown Venipuncture / Unknown 12/03/2022 2:42 AM LAW SECRETARY 12/03/2022 2:48 AM LAW SECRETARY Narrative Authorizing Provider Result Alexis Rodgers MD LAB - CHEMISTRY OR DERABLES Performing Organization Address City/[facility]/ZIP Co de Phone Number [address] [address], [facility] [phone] * (ABNORMAL) BASIC METABOLIC PANEL (CALCIUM TOTAL) (12/03/2022 2:42 AM LAW SECRETARY) BUN 30(H) 7 - 26 mg/dL 12/03/2022 3:46 AM [facility] Creatinine 2.91(H) 0.56 - 0.96 mg/dL 12/03/2022 3:46 AM [facility] Sodium 134(L) 136 - 145 mmol/L 12/03/2022 3:46 AM [facility] Potassium 3.5 3.5 - 4.5 mmol/L 12/03/2022 3:46 AM [facility] Chloride 106 98 - 107 mmol/L 12/03/2022 3:46 AM [facility] CO2 18(L) 22 - 29 mmol/L 12/03/2022 3:46 AM [facility] Glucose 114 70 - 115 mg/dL 12/03/2022 3:46 AM [facility] Calcium 7.3(L) 8.4 - 10.2 mg/dL 12/03/2022 3:46 AM [facility] Anion Gap 14 8 - 18 12/03/2022 3:46 AM [facility] BUN/Creatinine Ratio 10 7 - 23 12/03/2022 3:46 AM [facility] Osmolality Calculated 285 270 - 300 mOsm/kg 12/03/2022 3:46 AM [facility] eGFR by CKD-EPI 22(L) >=90 mL/min/1.7 3 m2 12/03/2022 3:46 AM [facility] Blood BLOOD SPECIMEN / Unknown Venipuncture / Unknown 12/03/2022 2:42 AM LAW SECRETARY 12/03/2022 2:48 AM [facility] Graeme Rodgers MD LAB - CHEMISTRY OR DERABLES Performing Organization Address [facility]/State/[facility] Co de Phone Number [facility] [address] [place] [address], [facility] [phone] * (ABNORMAL) CBC W AUTO DIFFERENTIAL (12/03/2022 2:42 AM [facility]) WBC 37.1(H) 3.5 - 10.5 10? 3 /uL 12/03/2022 3:01 AM [facility] RBC 3.08(L) 3.80 - 5.20 10? 6 /uL 12/03/2022 3:01 AM [facility] Hemoglobin 6.8(L) 12.0 - 15.6 g/dL 12/03/2022 3:01 AM [facility] Hematocrit 22.3(L) 35.0 - 45.0 % 12/03/2022 3:01 AM [facility] MCV 72.4(L) 80.7 - 98.3 fL 12/03/2022 3:01 AM [facility] MCH 22.1(L) 26.7 - 34.0 pg 12/03/2022 3:01 AM [facility] MCHC 30.5(L) 30.8 - 35.9 g/dL 12/03/2022 3:01 AM [facility] RDW-SD 50.5(H) 36.0 - 50.0 fL 12/03/2022 3:01 AM [facility] RDW-CV 19.5(H) 11.2 - 14.8 % 12/03/2022 3:01 AM [facility] Platelet Count 445(H) 150 - 400 10? 3 /uL 12/03/2022 3:01 AM [facility] MPV 9.2(L) 9.4 - 12.9 fL 12/03/2022 3:01 AM [facility] nRBC Absolute 0.03(H) 0 10? 3 /uL 12/03/2022 3:01 AM [facility] nRBC Auto 0.1(H) 0 /100 WBC 12/03/2022 3:01 AM [facility] Blood BLOOD SPECIMEN / Unknown Venipuncture / Unknown 12/03/2022 2:42 AM LAW SECRETARY 12/03/2022 2:48 AM LAW SECRETARY Graeme Rodgers MD LAB - HEMATOLOGY O RDERABLES Performing Organization Address City/State/[facility] Co de Phone Number [address] [address] [phone] * TYPE + SCREEN PANEL (12/03/2022 2:42 AM LAW SECRETARY) Antibody Screen NEG 3:33 AM [facility] BLOOD BANK LAB ABO Rh A POS 12/03/2022 3:33 AM [facility] BLOOD BANK LAB Blood Bank BLOOD SPECIMEN / Unknown Venipuncture / Unknown 12/03/2022 2:42 AM LAW SECRETARY 12/03/2022 2:48 AM LAW SECRETARY Himanshu A Srinivas MD LAB - BLOOD BANK ORD ERABLES Performing Organization Address City/[facility]/ZIP Co de Phone Number [facility] BLOOD BANK LAB [address] [place] [address], [place] [phone] * (ABNORMAL) GLUCOSE - POINT OF CARE (12/03/2022 1:07 AM LAW SECRETARY) Glucose WB/POC 132(H) 70 - 115 mg/dL 12/03/2022 1:12 AM LAW SECRETARY [facility] Specimen Type Cap Fingerstick 2022 1:12 AM LAW SECRETARY [facility] Blood BLOOD SPECIMEN / Unknown 12/03/2022 1:07 AM LAW SECRETARY 12/03/2022 1:12 AM LAW SECRETARY Graeme Rodgers MD LAB - POINT OF CAR E ORDERABLES Performing Organization Address City/[facility]/ZIP Co de Phone Number [address] [address], [place] [phone] * (ABNORMAL) GLUCOSE - POINT OF CARE (12/03/2022 12:30 AM LAW SECRETARY) Glucose WB/POC 123(H) 70 - 115 mg/dL 12/03/2022 10:47 AM LAW SECRETARY [facility] Specimen Type Cap Fingerstick 2022 10:47 AM LAW SECRETARY [facility] Blood BLOOD SPECIMEN / Unknown 12/03/2022 12:30 AM LAW SECRETARY 12/03/2022 10:47 AM LAW SECRETARY Graeme Rodgers MD LAB - POINT OF CAR E ORDERABLES [address] [address], [place] [phone] * (ABNORMAL) CULTURE FLUID+GRAM STAIN (12/03/2022 12:27 AM LAW SECRETARY) Culture Heavy Proteus mirabilis(AA) CHARLES 12/06/2022 5:43 AM LAW SECRETARY [facility] MI[facility] Culture Moderate Streptococcus agalactiae (Group B)(AA) CHARLES 12/06/2022 5:43 AM [facility] MICROBIOLOGY Culture Moderate normal skin nish CHARLES 12/06/2022 5:43 AM [facility] MICROBIOLOGY Gram Stain Light Gram-positive bacilli(AA) 12/06/2022 5:43 AM [facility] MICROBIOLOGY Gram Stain Rare Gram-positive cocci(AA) 12/06/2022 5:43 AM [facility] MICROBIOLOGY Gram Stain Rare Red blood cells(AA) 12/06/2022 5:43 AM [facility] MICROBIOLOGY Gram Stain No polymorphonuclear cells(AA) 12/06/2022 5:43 AM [facility] MICROBIOLOGY Fluid BODY FLUID SPECIMEN / Unknown Collection / Unknown 12/03/2022 12:27 AM LAW SECRETARY 12/03/2022 12:38 AM [facility] MICROBIOLOGY - 12/06/2022 5:43 AM [facility] Susceptibility testing of penicillin, other beta-lactam antibiotics, [...] CHARLES <=4 ug/mL: Susceptible Proteus mirabilis Tobramycin CHRALES <=1 ug/mL: Susceptible Proteus mirabilis Trimethoprim-sulfame thoxa zole CHARLES <=20 ug/mL: Susceptible Comment:*Cefazolin CHARLES of </ =4 cannot distinguish between susceptible or intermediate for systemic breakpoints. If further defined interpretation is needed, call Microbiology and a disk diffusion test will be performed. Graeme Rodgers MD LAB - MICROBIOLOGY ORDERABLES [facility] [address] [place] [address], [facility] [phone] * CULTURE ANAEROBE (12/03/2022 12:27 AM LAW SECRETARY) Culture No anaerobic organisms isolated CHARLES 12/08/2022 8:12 AM LAW SECRETARY [facility] Fluid BODY FLUID SPECIMEN / Unknown Collection / Unknown 12/03/2022 12:27 AM LAW SECRETARY 12/03/2022 12:38 AM LAW SECRETARY Graeme Rodgers MD LAB - MICROBIOLOGY ORDERABLES Performing Organization Address [facility] Co de Phone Number [facility] [address] [place] [address], [facility] [phone] * PATHOLOGY TISSUE (12/03/2022 12:16 AM LAW SECRETARY) Case Report Surgical Pathology Report ? Case: [id number] ? Authorizing Provider: ??Graeme Rodgers MD ?Collected: ? 12/03/2022 12:16 AM ? Ordering Location: ? [facility] ?Received: ?12/03/2022 07:40 AM ? Pathologist: ? Graeme Alexandre MD ? Specimen: ?Foot, Left, left foot ? 12/06/2022 12:07 PM [facility] Final Diagnosis Foot, left, disarticulation (A): - Ischemic necrosis with marked acute inflammation - Acute osteomyelitis - Surgical margins viable 12/06/2022 12:07 PM [facility] Microscopic Description and Comment Microscopic examination substantiates the final diagnosis. 12/06/2022 12:07 PM [facility] Clinical History The patient is a 32-year-old woman with poorly controlled diabetes, presented with a gangrenous necrotic left foot. Operative procedure: Left ankle disarticulation 12/06/2022 12:07 PM [facility] Gross Description The requisition and [...] soft tissue resection margin is viable grossly. Black Top Raker sections are submitted as follows: J1-H8-biqjgwso ulcer, A3-soft tissue resection margin, A4-bone under ulcer following decalcification./DS 12/06/2022 12:07 PM [facility] Disclaimer The performance characteristics of all immunohistochemical and indirect immunofluorescence stains (if any) cited in this report were determined by the Histopathology Laboratory of [facility]. Some of these tests were developed by [...] the attending (teaching) pathologist. 12/06/2022 12:07 PM LAW SECRETARY [facility] Embedded Images 12/06/2022 12:07 PM LAW SECRETARY [facility] Biopsy, Excision (Foot, Left) 12/03/2022 12:16 AM LAW SECRETARY 12/03/2022 7:40 AM LAW SECRETARY Comment:Pre-op diagnosis: Gangrene (CMS/HCC) [I96] LEFT FOOT TAKEN TO MORGUE Graeme Rodgres MD LAB - PATHOLOGY/CY TOLOGY ORDERABLES Performing Organization Address City/[facility]/ZIP Co de Phone Number [facility] [address] [place] [address], [facility] [phone] * (ABNORMAL) GLUCOSE - POINT OF CARE (12/02/2022 11:10 PM LAW SECRETARY) Glucose WB/POC 126(H) 70 - 115 mg/dL 12/03/2022 10:47 AM LAW SECRETARY [facility] Specimen Type Cap Fingerstick 2022 10:47 AM LAW SECRETARY [facility] Blood BLOOD SPECIMEN / Unknown 12/02/2022 11:10 PM LAW SECRETARY 12/03/2022 10:47 AM LAW SECRETARY Himanshu Espino MD LAB - POINT OF CARE ORDERABLES Performing Organization Address [facility]/ZIP Co de Phone Number [facility] [address] [place] [address], [facility] [phone] * (ABNORMAL) C-REACTIVE PROTEIN (12/02/2022 8:41 PM LAW SECRETARY) C-Reactive Protein 25.2(H) <=0.5 mg/dL 12/02/2022 9:09 PM LAW SECRETARY [facility] Blood BLOOD SPECIMEN / Unknown Venipuncture / Unknown 12/02/2022 8:41 PM LAW SECRETARY 12/02/2022 8:44 PM LAW SECRETARY Himanshu Espino MD LAB - CHEMISTRY DIVINA OLVERA [facility] [address] [place] [address], [facility] [phone] * (ABNORMAL) LIPID PROFILE (12/02/2022 8:33 PM [facility]) Cholesterol Total 111 <200 mg/dL 12/02/2022 8:55 PM [facility] HDL 8(L) >40 mg/dL 12/02/2022 8:55 PM [facility] Comment: ATP III Classification of HDL Cholesterol: ? <40 mg/dL: ??Considered a major risk factor. ? >60 mg/dL: ??Considered a negative risk factor. ? LDL Calculated 74 <100 mg/dL 12/02/2022 8:55 PM [facility] Comment: ATP III Classification of LDL Cholesterol: ?<100 mg/dL: ??Optimal ? 100 - 129 mg/dL: ??Near Optimal/Above Optimal ? 130 - 159 mg/dL: ??Borderline High ? 160 - 189 mg/dL: ??High ?>190 mg/dL: ??Very High ? Triglycerides 143 <150 mg/dL 12/02/2022 8:55 PM [facility] Comment: ATP III Classification of Triglycerides: ?<150 mg/dL: ??Normal ? 150 - 199 mg/dL: ??Borderline High ? 200 - 400 mg/dL: ??High ?>500 mg/dL: ??Very High Blood BLOOD SPECIMEN / Unknown Venipuncture / Unknown 12/02/2022 8:33 PM LAW SECRETARY 12/02/2022 8:42 PM [facility] Himanshu Espino MD LAB - CHEMISTRY DIVINA Sweet Organization Address [facility]/ZIP Co de Phone Number [facility] [address] [place] [address], [facility] [phone] * (ABNORMAL) HEMOGLOBIN A1C (12/02/2022 8:32 PM LAW SECRETARY) Hemoglobin A1c 6.7(H) <=5.6 % 12/03/2022 10:17 AM [facility] Estimated Average Glucose 146 mg/dL 12/03/2022 10:17 AM [facility] Comment: HbA1c Interpretation: Normal : < 5.7% Pre-diabetes: 5.7-6.4% Diabetes: Equal to or greater than 6.5% Test results diagnostic of diabetes should be repeated for confirmation. Treatment target values recommended by ADA and other clinical organizations should be used to evaluate metabolic control in patients. Reference: [place] [employer], Standards of Care in Diabetes -2020 In patients 70 years and older consider HbA1c target range of 7.0-7.5% (Reference: Anthony Dillard et al. JAMDA. 2012) The Sebia assay for the measurement of HbA1c is a National Glycohemoglobin Standardization Program (NGSP) certified method. Blood BLOOD SPECIMEN WITH EDTA / Unknown Venipuncture / Unknown 12/02/2022 8:32 PM LAW SECRETARY 12/02/2022 8:40 PM LAW SECRETARY Himanshu Espino MD LAB - CHEMISTRY DIVINA [facility] Organization Address City/State/[facility] Co de Phone Number [facility] [address] [place] [address], [facility] [phone] * (ABNORMAL) CULTURE BLOOD (12/02/2022 8:32 PM LAW SECRETARY) Pathologist [facility] Culture Growth of Schaalia turicensis(A A) CHARLES 12/07/2022 6:11 PM LAW SECRETARY [facility] MICROBIOLOG[facility] Gram Stain Gram-positiv e bacilli(AA) 12/07/2022 6:11 PM LAW SECRETARY [facility] Blood PERIPHERAL BLOOD / Unknown Venipuncture / Unknown 12/02/2022 8:32 PM LAW SECRETARY 12/02/2022 8:36 PM LAW SECRETARY Narrative [facility]CROBIOLOG[facility] - 12/07/2022 6:11 PM LAW SECRETARY Positive at 34 hrs Trihsa Rodríguez PA-C LAB - MICROBIOLOGY O RDERAALONZO Performing Organization Address City/[facility]/ZIP Co de Phone Number [facility]CROBIOLOG[facility] [address] [place] [address], [facility] [phone] * (ABNORMAL) CULTURE BLOOD (12/02/2022 8:00 PM LAW SECRETARY) Culture Growth of [place] turkemnsis(A A) CHARLES 12/09/2022 6:40 PM LAW SECRETARY [facility] MICROBIOLOG[facility] Gram Stain Gram-positiv e bacilli(AA) CHARLES 12/09/2022 6:40 PM LAW SECRETARY [facility] MICROBIOLOG[facility] Gram Stain Gram-positiv e cocci(AA) 12/09/2022 6:40 PM LAW SECRETARY [facility]CROBI[facility] Blood PERIPHERAL BLOOD / Unknown Venipuncture / Unknown 12/02/2022 8:00 PM LAW SECRETARY 12/02/2022 8:36 PM LAW SECRETARY Narrative [facility] MICROBIOLOG[facility] - 12/09/2022 6:40 PM LAW SECRETARY Positive at 57 hours 33 minutes Trisha Rodríguez PA-C LAB - MICROBIOLOGY O RDERABLES Performing Organization Address [facility]/ZIP Co de Phone Number [facility] MICROBIOLOG[facility] [address] [place] [address], [facility] [phone] * LACTIC ACID BLOOD REFLEX TO REPEAT (12/02/2022 8:00 PM LAW SECRETARY) Lactic Acid-Stat 0.9 <=2.0 mmol/L 12/02/2022 8:59 PM LAW SECRETARY [facility] LABOR[facility] Blood BLOOD SPECIMEN / Unknown Venipuncture / Unknown 12/02/2022 8:00 PM LAW SECRETARY 12/02/2022 8:40 PM LAW SECRETARY Trisha Rodríguez PA-C LAB - CHEMISTRY DIVINA OLVERA [address] [address], [place] [phone] * XR FOOT LEFT 3VW OR MORE (12/02/2022 7:56 PM LAW SECRETARY) Anatomical Region Laterality Modality Ankle / Foot Radiographic Nissa ging 12/02/2022 7:40 PM LAW SECRETARY Narrative 12/03/2022 2:25 PM LAW SECRETARY PROCEDURE: ??XR FOOT LEFT 3VW OR MORE, DATE/TIME OF EXAM: ??12/02/2022 6:48 PM, LOCATION ??[facility] INDICATION: M79.89: Swelling of left foot [...] osteomyelitis. Report dictated by Dante Schultz MD (associate professor of radiology). Xander Kim MD have personally reviewed and interpreted this examination/study. > Interpreting Provider: Xander De Guzman MD on 12/03/2022 2:25 PM Procedure Note Xander De Guzman MD - 12/03/2022 PROCEDURE: XR FOOT LEFT 3VW OR MORE, DATE/TIME OF EXAM: 12/02/2022 6:48 PM, LOCATION [facility] INDICATION: M79.89: Swelling of left foot [...] osteomyelitis. Report dictated by Dante Schultz MD (associate professor of radiology). I, Xander De Guzman MD have personally reviewed and interpreted this examination/study. > Interpreting Provider: Xander De Guzman MD on 12/03/2022 2:25 PM Trisha Rodríguez PA-C DIAGNOSTIC IMAGING O RDERABLES * (ABNORMAL) ERYTHROCYTE SEDIMENTATION RATE (12/02/2022 7:55 PM LAW SECRETARY) Erythrocyte Sedimentation Rate Westergren >130(H) 0 - 20 MM/HR 12/02/2022 10:44 PM [facility] Blood BLOOD SPECIMEN / Unknown Venipuncture / Unknown 12/02/2022 7:55 PM LAW SECRETARY 12/02/2022 8:04 PM LAW SECRETARY Himanshu Espino MD LAB - HEMATOLOGY ORD ERABLES [facility] [address] [place] [phone], [facility] [phone] * (ABNORMAL) DIFFERENTIAL MANUAL (12/02/2022 7:55 PM LAW SECRETARY) WBC (corrected for NRBC) 42.0 10? 3 /uL 12/02/2022 9:36 PM [facility] Total Cell Count 100 12/02/2022 9:36 PM [facility] Neutrophils Absolute Manual 39.06(H) 1.60 - 7.00 10? 3 /uL 12/02/2022 9:36 PM [facility] Comment:(BANDS+SEGS) x WBC = NEUT # (ANC) Lymphocyte Absolute Manual 0.84(L) 1.10 - 3.90 10? 3 /uL 12/02/2022 9:36 PM [facility] Monocytes Absolute Manual 2.10(H) 0.26 - 1.07 10? 3 /uL 12/02/2022 9:36 PM [facility] Band % Manual 3 0 - 10 % 12/02/2022 9:36 PM [facility] Neutrophil % Manual 90(H) 35 - 70 % 12/02/2022 9:36 PM [facility] Lymphocyte % Manual 2(L) 20 - 43 % 12/02/2022 9:36 PM [facility] Monocytes % Manual 5 5 - 13 % 12/02/2022 9:36 PM [facility] Platelet Estimate Increased (A) Adequate 12/02/2022 9:36 PM [facility] Microcytes Few(A) None 12/02/2022 9:36 PM [facility] Target Cells 2+(A) None 12/02/2022 9:36 PM [facility] Ovalocytes Occasiona l(A) None 12/02/2022 9:36 PM [facility] Large Platelet Count Occasiona l(A) None 12/02/2022 9:36 PM [facility] Blood BLOOD SPECIMEN / Unknown Venipuncture / Unknown 12/02/2022 7:55 PM LAW SECRETARY 12/02/2022 8:04 PM LAW SECRETARY Trisha Rodríguez PA-C LAB - HEMATOLOGY ORD KAUSHAL Performing Organization Address City/[facility]/ZIP Co de Phone Number [address] [address], [facility] [phone] * HCG BETA BLOOD QUANTITATIVE (12/02/2022 7:55 PM LAW SECRETARY) Beta-hCG Total Quantitative <3 mIU/mL 12/02/2022 8:32 PM [facility] Comment: This assay is cleared for use [...] Unknown Venipuncture / Unknown 12/02/2022 7:55 PM LAW SECRETARY 12/02/2022 8:12 PM LAW SECRETARY Trisha Rodríguez PA-C LAB - CHEMISTRY DIVINA OLVERA [address] [address], [place] [phone] * (ABNORMAL) B-TYPE NATRIURETIC PEPTIDE (12/02/2022 7:55 PM LAW SECRETARY) [facility] Signature BNP 551(H) <100 pg/mL 12/02/2022 8:24 PM LAW SECRETARY [facility] Comment: A decision threshold of [...] Unknown Venipuncture / Unknown 12/02/2022 7:55 PM LAW SECRETARY 12/02/2022 8:07 PM LAW SECRETARY Trisha Rodríguez PA-C LAB - CHEMISTRY DIVINA OLVERA [address] [address], [facility] [phone] * TROPONIN I (12/02/2022 7:55 PM LAW SECRETARY) Pathologist [facility] Troponin I 0.023 <0.032 ng/mL 12/02/2022 8:30 PM [facility] Blood BLOOD SPECIMEN / Unknown Venipuncture / Unknown 12/02/2022 7:55 PM LAW SECRETARY 12/02/2022 8:12 PM LAW SECRETARY Trisha Rodríguez PA-C LAB - CHEMISTRY DIVINA OLVERA Performing Organization Address City/[facility]/ZIP Co de Phone Number [address] [address], [facility] [phone] * (ABNORMAL) COMPREHENSIVE METABOLIC PANEL (12/02/2022 7:55 PM LAW SECRETARY) Pathologist [facility] BUN 27(H) 7 - 26 mg/dL 12/02/2022 8:31 PM [facility] Creatinine 2.95(H) 0.56 - 0.96 mg/dL 12/02/2022 8:31 PM [facility] Sodium 139 136 - 145 mmol/L 12/02/2022 8:31 PM [facility] Potassium 3.9 3.5 - 4.5 mmol/L 12/02/2022 8:31 PM [facility] Chloride 106 98 - 107 mmol/L 12/02/2022 8:31 PM [facility] CO2 17(L) 22 - 29 mmol/L 12/02/2022 8:31 PM [facility] Glucose 53(LL) 70 - 115 mg/dL 12/02/2022 8:31 PM [facility] Calcium 7.6(L) 8.4 - 10.2 mg/dL 12/02/2022 8:31 PM [facility] Protein Total 6.0 6.0 - 8.3 g/dL 12/02/2022 8:31 PM [facility] Albumin 0.8(L) 3.4 - 5.0 g/dL 12/02/2022 8:31 PM [facility] Bilirubin Total 1.9(H) 0.2 - 1.2 mg/dL 12/02/2022 8:31 PM [facility] Alkaline Phosphatase 313(H) 40 - 150 U/L 12/02/2022 8:31 PM [facility] ALT 38 5 - 55 U/L 12/02/2022 8:31 PM [facility] AST 47(H) 5 - 34 U/L 12/02/2022 8:31 PM [facility] Anion Gap 20(H) 8 - 18 12/02/2022 8:31 PM [facility] BUN/Creatinine Ratio 9 7 - 23 12/02/2022 8:31 PM [facility] Osmolality Calculated 291 270 - 300 mOsm/kg 12/02/2022 8:31 PM [facility] Albumin/Globulin Ratio 0.2(L) 1.1 - 2.3 12/02/2022 8:31 PM [facility] eGFR by CKD-EPI 21(L) >=90 mL/min/1.7 3 m2 12/02/2022 8:31 PM [facility] Blood BLOOD SPECIMEN / Unknown Venipuncture / Unknown 12/02/2022 7:55 PM LAW SECRETARY 12/02/2022 8:12 PM [facility] Trisha Rodríguez PA-C LAB - CHEMISTRY DIVINA OLVERA [facility] [address] [place] [address], [facility] [phone] * (ABNORMAL) CBC W AUTO DIFFERENTIAL (12/02/2022 7:55 PM [facility]) WBC 42.0(H) 3.5 - 10.5 10? 3 /uL 12/02/2022 9:33 PM [facility] RBC 3.97 3.80 - 5.20 10? 6 /uL 12/02/2022 9:33 PM [facility] Hemoglobin 8.9(L) 12.0 - 15.6 g/dL 12/02/2022 9:33 PM [facility] Hematocrit 28.3(L) 35.0 - 45.0 % 12/02/2022 9:33 PM [facility] MCV 71.3(L) 80.7 - 98.3 fL 12/02/2022 9:33 PM [facility] MCH 22.4(L) 26.7 - 34.0 pg 12/02/2022 9:33 PM [facility] MCHC 31.4 30.8 - 35.9 g/dL 12/02/2022 9:33 PM [facility] RDW-SD 49.1 36.0 - 50.0 fL 12/02/2022 9:33 PM [facility] RDW-CV 19.2(H) 11.2 - 14.8 % 12/02/2022 9:33 PM [facility] Platelet Count 556(H) 150 - 400 10? 3 /uL 12/02/2022 9:33 PM [facility] Comment: Platelet count verified by slide scan. This is an appended report. ??These results have been appended to a previously preliminary verified report. MPV 12/02/2022 9:33 PM [facility] Comment:Unable to Report Immature Platelet Fraction 12/02/2022 9:33 PM [facility] Comment:Unable to Report nRBC Absolute 0.04(H) 0 10? 3 /uL 12/02/2022 9:33 PM [facility] nRBC Auto 0.1(H) 0 /100 WBC 12/02/2022 9:33 PM [facility] Blood BLOOD SPECIMEN / Unknown Venipuncture / Unknown 12/02/2022 7:55 PM LAW SECRETARY 12/02/2022 8:04 PM LAW SECRETARY Trisha Rodríguez PA-C LAB - HEMATOLOGY ORD ERABLES [facility] [address] [place] [address], [facility] [phone] * XR CHEST 2VW (12/02/2022 7:31 PM LAW SECRETARY) Anatomical Region Laterality Modality Chest Radiographic Nissa ging 12/02/2022 8:42 PM LAW SECRETARY Impressions 12/03/2022 2:50 AM LAW SECRETARY IMPRESSION: 1.Cardiomegaly with suggestion of mild pulmonary edema. 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 The report was drafted by Dante Schultz MD (resident care aide) I, Peter Donnelly MD, PhD have personally reviewed and interpreted this examination/study. > Interpreting Provider: Peter Donnelly MD, PhD on 12/03/2022 2:50 AM Narrative 12/03/2022 2:50 AM LAW SECRETARY EXAM: XR CHEST 2VW DATE/TIME: 12/02/2022 7:31 PM LOCATION: ??[facility] HISTORY: R09.02: Hypoxia COMPARISON: None. FINDINGS: [...] CHEST 2VW DATE/TIME: 12/02/2022 7:31 PM LOCATION: [facility] HISTORY: R09.02: Hypoxia COMPARISON: None. FINDINGS: [...] was drafted by Dante Schultz MD (resident care aide) I, Peter Donnelly MD, PhD have personally reviewed and interpreted this examination/study. > Interpreting Provider: Peter Donnelly MD, PhD on 12/03/2022 2:50 AM Trisha Rodríguez PA-C DIAGNOSTIC IMAGING O RDERABLES documented in this [...] tablet form (HCC) Swelling of left foot Gangrene (HCC) Gangrene documented in this encounter Administered Medications Inactive [...] 8 hours. $ Given 12/12/2022 6:56 AM LAW SECRETARY 3 mL $ Given 12/11/2022 9:27 PM LAW SECRETARY 3 mL $ Given 12/11/2022 2:35 PM LAW SECRETARY 3 mL acetaminophen (Tylenol) tablet 500 mg [...] the MAR. $ Given 12/12/2022 6:55 AM LAW SECRETARY 500 m g $ Given 12/11/2022 6:24 PM LAW SECRETARY 500 mg $ Given 12/11/2022 2:35 PM LAW SECRETARY 500 mg amLODIPine (Norvasc) tablet 10 mg 10 mg, Oral, DAILY, First dose on Fri12/04/22 at 0930, Until Discontinued $ Given 12/12/2022 9:50 AM LAW SECRETARY 10 mg $ Given 12/11/2022 8:29 AM LAW SECRETARY 10 mg $ Given 12/10/2022 9:59 AM LAW SECRETARY 10 mg amoxicillin-clavulanate (Augmentin) tablet 875 mg 875 mg, Oral, 2 TIMES DAILY, 14 doses, First dose on Fri12/08/22 at 1415, Last dose on 12/14/22 at 2100, Administer with food to decrease GI side effects., Indication for anti-infective therapy: Suspected infection, Site of anti-infective therapy: Skin/soft tissue $ Given 12/12/2022 10:20 AM LAW SECRETARY 875 mg $ Given 12/11/2022 9:27 PM LAW SECRETARY 875 mg $ Given 12/11/2022 8:29 AM LAW SECRETARY 875 mg carvedilol (Coreg) tablet 12.5 mg 12.5 mg, Oral, 2 TIMES DAILY WITH MEALS, First dose on Fri12/11/22 at 0800, Until Discontinued, Take with food $ Given 12/12/2022 9:50 AM LAW SECRETARY 12.5 mg $ Given 12/11/2022 6:24 PM LAW SECRETARY 12.5 mg $ Given 12/11/2022 8:29 AM LAW SECRETARY 12.5 mg FLUoxetine (PROzac) capsule 20 mg 20 mg, Oral, DAILY, First dose on Fri12/03/22 at 0900, Until Discontinued $ Given 12/09/2022 9:03 AM LAW SECRETARY 20 mg $ Given 12/08/2022 9:29 AM LAW SECRETARY 20 mg $ Given 12/07/2022 8:07 AM LAW SECRETARY 20 mg furosemide (Lasix) tablet 40 mg 40 mg, Oral, 2 TIMES DAILY, First dose on Fri12/06/22 at 1145, Until Discontinued $ Given 12/12/2022 10:20 AM LAW SECRETARY 40 m g $ Given 12/11/2022 6:24 PM LAW SECRETARY 40 mg $ Given 12/11/2022 8:29 AM LAW SECRETARY 40 mg heparin injection 7,500 Units 7,500 Units, Subcutaneous, 3 TIMES DAILY, First dose on Fri12/03/22 at 0800, Until Discontinued $ Given 12/12/2022 6:55 AM LAW SECRETARY 7,500 Units Abdominal Tissue $ Given 12/11/2022 9:27 PM LAW SECRETARY 7,500 Units A bdominal Tissue $ Given 12/11/2022 2:35 PM LAW SECRETARY 7,500 Units A bdominal Tissue insulin glargine (Lantus) pen 10 Units 10 Units, Subcutaneous, AT BEDTIME, First dose (after last modification) on Fri12/05/22 at 2100, Until Discontinued, Obtain current Blood Glucose if necessary . WASTE DISPOSAL INSTRUCTIONS: Black Bin Disposal required. $ Given 12/11/2022 9:33 PM LAW SECRETARY 10 Units Abdominal Tissue $ Given 12/10/2022 9:19 PM LAW SECRETARY 10 Units Ab d Right Lower Quadrant $ Given 12/09/2022 10:19 PM LAW SECRETARY 10 Units A bd Left Lower Quadrant insulin lispro (HumaLOG;ADMelog) 100 [...] notify physician $ Given 12/09/2022 1:06 PM LAW SECRETARY 4 Units Right Arm $ Given 12/09/2022 12:58 AM LAW SECRETARY 2 Units A bd Left Lower Quadrant $ Given 12/08/2022 9:41 PM LAW SECRETARY 2 Units Le ft Arm insulin lispro (HumaLOG;ADMelog) 100 UNIT/ML pen 5 Units 5 Units, Subcutaneous, 3 TIMES DAILY WITH MEALS, First dose on Fri12/05/22 at 0815, Until Discontinued, Obtain current Blood Glucose if necessary. May be given immediately before meal, during meal, or immediately after meal is eaten. Meal must be present before administration. $ Given 12/11/2022 2:39 PM LAW SECRETARY 5 Units Abdominal Tissue $ Given 12/11/2022 9:18 AM LAW SECRETARY 5 Units Ri ght Arm $ Given 12/10/2022 6:05 PM LAW SECRETARY 5 Units Ab dominal Tissue nystatin (Mycostatin) powder Topical, 3 TIMES DAILY, First dose on Fri12/05/22 at 1515, Until Discontinued, Apply to intertriginous areas $ Given 12/12/2022 10:20 AM LAW SECRETARY $ Given 12/11/2022 9:35 PM LAW SECRETARY $ Given 12/11/2022 2:35 PM LAW SECRETARY oxyCODONE (immediate release) (Roxicodone) tablet 10 mg [...] the MAR. $ Given 12/11/2022 12:03 AM LAW SECRETARY 10 m g $ Given 12/10/2022 1:13 PM LAW SECRETARY 10 mg $ Given 12/09/2022 1:08 PM LAW SECRETARY 10 mg oxyCODONE (immediate release) (Roxicodone) tablet [...] or chew. $ Given 12/12/2022 10:20 AM LAW SECRETARY 20 mEq $ Given 12/11/2022 8:30 AM LAW SECRETARY 20 mEq $ Given 12/10/2022 1:12 PM LAW SECRETARY 20 mEq documented in this encounter Active and Recently Administered Medications Times are shown in LAW SECRETARY. Scheduled Medication Order 12/10/2022 12/11/2022 12/12/2022 0.9% NaCl injection 3 mL(Linked Group 1) 3 mL, Intracatheter, EVERY 8 HOURS, First dose on Fri12/03/22 at 0045, Until Discontinued, Flush peripheral IV catheter with 3 mL of normal saline every 8 hours. 0604 ($ Given - Provider: Jordan Bose RN)1315 ($ Given - Provider: Román Burger, RN)2120 ($ Given - Provider: Althea Slater RN) 0541 ($ Given - Provider: Althea Slater RN)1435 ($ Given - Provider: Antony Interiano RN)2127 ($ Given - Provider: Julita Long, RN) 0656 ($ Given - Provider: Julita Long, [...] Bose RN)1312 ($ Given - Provider: Román Burger, RN)1700 ($ Given - Provider: Jeanna Garcia [...] TIMES DAILY, 14 doses, First dose on Fri12/08/22 at 1415, Last dose on Fri12/14/22 at 2100, Administer with food to decrease [...] Until Discontinued 1000 (Not Administered - Provider: Romná Burger RN - Reason: Refused-Patient) 0829 (Not Administered - Provider: Antony Interiano RN - Reason: Refused-Patient) 1020 (Not Administered - Provider: Antony Interiano RN - Reason: Refused-Patient) furosemide (Lasix) tablet 40 mg 40 mg, Oral, 2 TIMES DAILY, First dose on Fri12/06/22 at 1145, Until Discontinued 0959 ($ Given - Provider: Román Burger, RN)1700 ($ Given - Provider: Jeanna Garcia RN) 0829 ($ Given - Provider: Antony Interiano RN)1824 ($ Given - Provider: Antony Interiano RN) 1020 ($ Given - Provider: Antony Interiano RN) heparin injection 7,500 Units 7,500 Units, Subcutaneous, 3 TIMES DAILY, First dose on Fri12/03/22 at 0800, Until Discontinued 0603 ($ Given - Provider: Jordan Bose RN)1315 ($ Given - Provider: Román Burger, RN)2118 ($ Given - Provider: Althea Slater RN) 0541 ($ Given - Provider: Althea Slater RN)1435 ($ Given - Provider: Antony Interiano RN)212 ($ Given - Provider: Julita Long, JIMMIE) 0655 ($ Given - Provider: Julita Long RN) insulin glargine (Lantus) pen 10 Units 10 Units, Subcutaneous, AT BEDTIME, First dose (after last modification) on Fri12/05/22 at 2100, Until Discontinued, Obtain current Blood Glucose if necessary . WASTE DISPOSAL INSTRUCTIONS: Black Bin Disposal required. 2118 ($ Given - Provider: Althea Slater RN) 2132 ($ Given - Provider: Julita Long RN) insulin lispro (HumaLOG;ADMelog) 100 UNIT/ML pen 0-12 [...] Administration Instructions)1314 (Not Administered - Provider: Román Bruger RN - Reason: Per Administration Instructions)1626 (Not [...] - Reason: Meal time altered - Comment: meño had late lunch and is refusing supper) [...] request must be documented in the JAN. 131 ($ Given - Provider: Román Burger, RN) 0003 ($ Given - Provider: Althea Slater, JIMMIE) oxyCODONE (immediate release) (Roxicodone) tablet 5 mg(Linked [...] JAN. 1312 (See Alternative - Provider: Román Burger, RN) 2 (See Alternative - Provider: Althea Slater, JIMMIE) Linked Groups Order Group 1: SALINE [...]
--- OUTSIDE RECORDS SUMMARY | 2024-11-17 03:04 | XMS_ITS | Encounter Summary ---
Author Organization [facility] Address [address] [place] [address] Care Team Providers Care Shipping Clerk Packing Name Role Phone Unavailable Primary Care Provider Unavailabl e Reason for Visit * Auth/Cert (Routine) Specialty Diagnoses / Procedures Referred By Jany t Referred To Contact Referral ID Status Reason Start Date Expiration Date Visits Re quested Visits Authorized [id number] 1 1 Encounter Details Date Type Department Care Team (Late st Contact Info) Description 12/02/2022 11:12 PM RAILS DEVELOPER Anesthesia Event [facility] [address] [place] [address] Eladio Hidalgo MD Flappan, Daniel, DO [address] [place] [address] Anesthesia Record Procedure Summary Procedure Name Responsible Anesthesiologist Anesthesia Start Time Anesthesia Stop Time LEFT ANKLE DISARTICULATION LEVEL 2 @ 2220 (Left) Eladio Hidalgo MD 12/02/22 2312 12/03/22 0005 Events Date Time Event Comment 12/02/2022 2312 An Start 2313 2316 Pt In Room 2316 An Start Data 2318 PT Reassessment 2319 Induction 2321 An Intubation 2328 PIV Placement 2331 Anes Ready 2338 Time Out Anesthesia part icipated in timeout at the time documented in the record by nursing 2339 Proc Start 2352 Proc Stop 2352 An Emergence 12/03/2022 0000 Extubation 0001 an stop data 0001 Pt out of Room 0001 ANPTO2 0005 An Stop Meds Name Total midazolam 2 mg/2mL injection 2 mg fentaNYL 100 mcg/2ml injection 50 mcg lidocaine PF 2% 100 mg propofol 200mg/20mL injection 150 mg succinylcholine 20 mg/mL injection 140 m g rocuronium 50 mg/5 mL injection 30 mg phenylephrine 100 mcg/mL syringe 100 mcg famotidine 20 mg/2mL injection 20 mg ondansetron 4mg/2mL injection 4 mg sugammadex 200 mg/2mL injection 600 mg vancomycin (Vancocin) IV dose per pharma cy 1,000 mg LR (Lactated ringers) 400 mL * Agents Name Insp. N2O Exp. Sevoflurane Exp. Isoflurane Exp. N2O O2 Air Insp. Sevoflurane Insp. Isoflurane * Blood No blood administrations on file. Lines, Drains, and Airways Type Details Placement Removal Peripheral IV Date: 12/02/22; Time : 2100; Orientation: Left 12/02/22 2100 by Jeanna Miller RN 12/03/22 0800 by Aminah Cavazos RN ETT Date: 12/02/22; Time : 2321; Placed By: Eladio Hidalgo MD; Vent: mask not attempted; Induction: Rapid Sequence; Blade Type: Video; Blade Size: 3; Laryngoscopy View: Grade 1 (full cords); Intubation Adjuncts: Stylet, Video Laryngoscope, Cricoid Pressure; Tube: Endotracheal Tube; Placement: Oral; Tube Type: Cuffed-inflated; Tube Size(mm): 7 MM; Depth of Insertion: 22 CM; Measured From: teeth; Attempts: 1; Cuff Infated: Air; Cuff Vol(mL): 10 mL; Verified By: Direct visualization, Bilateral breath sounds, Chest Auscultation, CO2 Monitor 12/02/22 2321 by Bryanna Alba MD 12/03/22 0000 by Bryanna Alba MD Peripheral IV Date: 12/03/22; Time : 0000; Orientation: Posterior, Right 12/03/22 0000 by Orquidea Taylor RN 12/08/22 0700 by Annabelle Burger RN Procedural Site (Incision) 12/03/22; 0019; Left; Leg; KERLEX ROLLS SOAKED IN BETADINE, ABDS, KERLEX ROLL WRAP, GABE WRAPS; 12/12/22; 1856 12/03/22 0019 by Colt Vargas RN 12/12/22 1856 by Generic, Auto Release documented in this encounter Social History Tobacco [...] and heating? Not hard at all 12/03/2022 [facility] [facility] - Occupational Stress [...] slept in a mcc (including now)? No 12/03/2022 Sex and Gender Information Value Date Recorded Sex Assigned at Not on file Gender Identity Not on file Sexual Orientation Not on file documented as of this encounter Functional Status Functional Status Response Date of Assess ment Is person deaf or have serious hearing difficult y? No 08/21/2022 Is person blind or have serious difficulty seein g? No 08/21/2022 Does person have serious dif ficulty walking/climbing stairs? No 08/21/2022 Does person have difficulty dressing/bathing? No 08/21/2022 Does person have difficulty doing errands alone? No 08/21/2022 Cognitive Status Response Date of Assessm ent Does person have difficulty concentrating/remembering/making decisions? No 08/21/2022 documented as of this encounter Progress Notes * Eladio Hidalgo MD - 12/03/2022 6:15 AM CST ANESTHESIA POSTOP EVALUATION NOTE Procedure: LEFT ANKLE DISARTICULATION LEVEL 2 @ 2220 (Left) Gay Canales is a 32 year old female Patient Vitals for the past 6 hrs: BP Temp Pulse Resp SpO2 Pain Rating Score #1 Pain Scale/Observation 12/03/22 0016 113/64 -- 82 (!) 32 100 % -- -- 12/03/22 0020 117/70 97.3 ??F (36.3 ??C) 85 30 100 % -- -- 12/03/22 0025 118/72 -- 86 23 97 % 9 N 12/03/22 0030 115/68 97.3 ??F (36.3 ??C) 85 23 94 % 5 F;B 12/03/22 0035 114/65 -- 85 25 92 % 6 F;B 12/03/22 0040 110/72 -- 86 21 91 % -- -- 12/03/222 -- -- 85 20 92 % -- -- 12/03/22 0055 -- 97.7 ??F (36.5 ??C) -- -- -- -- -- 12/03/22 0200 97/56 -- 73 17 92 % -- -- 12/03/22 0300 111/69 -- 79 17 96 % -- -- Anesthesia Type: general ETT Pre-op Diagnosis Codes: * Gangrene (CMS/HCC) [I96] Mental Status: awake, alert and sufficiently recovered from acute administration of anesthesia to participate in the evaluation Neuro Status: No numbness, tingling or visual disturbances Respiratory Function: natural Cardiac Function: stable Postop Pain: acceptable to the patient Postop Hydration: adequate Postop Nausea: none Assessment: no apparent anesthetic complications, patient tolerated procedure well and no evidence of recall Patient Disposition: Release from Anesthesia Care NOTABLE EVENTS: No notable events documented. S DEVELOPER * Eladio Hidalgo MD - 12/02/2022 10:27 PM CST ANESTHESIA PREOPERATIVE EVALUATION NOTE Procedure: LEFT ANKLE DISARTICULATION LEVEL 2 @ 2220 (Left) Vitals: Patient Vitals for the past 6 hrs: BP Temp Pulse Resp SpO2 Pain Rating Score #1 12/02/22 2130 -- -- -- -- -- 8 12/02/22 1936 -- -- -- -- 98 % -- 12/02/22 1935 142/95 -- -- -- -- -- 12/02/22 1735 -- -- -- -- 94 % -- 12/02/22 1731 (!) 151/108 98.5 ??F (36.9 ??C) 108 18 (!) 89 % -- LMP: Patient's last menstrual period was 08/08/2022. OB Status: Having periods ANESTHESIA PRE-EVALUATION NOTE History of Present Illness: 32 y/o female with PMHx of Morbid obesity, Uncontrolled DM, HTN, HfpEF, presents for above procedure. Denies any negative anesthetic Hx. The patient is a current non-smoker. Physical Exam: Orientation X3 Airway/Mallampati Score: III Mouth Opening Distance: 3 fingerwidths Neck ROM: full TM Distance: > 3 FB Teeth: normal Heart: normal - S1 S2 Lungs: clear to ausculation bilaterally Abdomen Exam: normal and obese Review of Systems: History of anesthetic complications: No Sleep Apnea Risk: No GERD: No Poor Exercise Tolerance: No Recent Chest Pain: No Shortness of Breath: No AICD/Pacemaker: No Renal Disease: No ANESTHESIA PLAN ASA Score: 3 E NPO Status: Other - comments (Chips approx 1 hour ago) Anesthesia Plan: general Planned Induction: intravenous and rapid sequence Planned Postop Destination: PACU Anesthetic plan was [...] and . Patient seen and examined by Eladio Hidalgo MD prior to transport to the room. H&P updated. Anesthesia plan discussed with patient, who is in agreement. Questions solicited and answered. Okay to proceed. BMI, Height, Weight Tobacco History Estimated body mass index is 44.64 kg/m?? as calculated from the following: Height as of this encounter: 1.702 m (5' 7 ). Weight as of this encounter: 129.3 kg (285 lb). Social History Tobacco Use Smoking Status Never Smokeless Tobacco Never Alcohol History Drug History Social History Substance and Sexual Activity Alcohol Use Never Social History Substance and Sexual Activity Drug Use Never Outpatient Medications: Inpatient Medications: No outpatient medications have been marked as taking for the 12/02/22 encounter (Hospital Encounter). Current Facility-Administered Medications Medication Dose Last Admin ??? cefepime 2 g Stopped at 12/02/222138 ??? clindamycin 900 mg Stopped at 12/02/222213 ??? dextrose IV for hypoglycemia 12.5 g Or ??? dextrose IV for hypoglycemia 25 g ??? glucagon 1 mg ??? glucose (Diabetic Use) ??? glucose (Diabetic Use) gel ??? glucose chew tab 16 g ??? [START ON 12/03/2022] insulin aspart 0-6 Units ??? lactated ringers 250 mL ??? vancomycin 2,500 mg 2,500 mg at 12/02/222112 ??? vancomycin (VANCOCIN) IV dose per pharmacy Allergies: No Known Allergies Relevant Problems No relevant active problems Problem List: Patient Active Problem List Diagnosis Date Noted ??? Severe recurrent major 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 psychotic features ([facility]) 08/22/2022 Priority: Not Prioritized ??? PTSD (post-traumatic stress disorder) 08/22/2022 Priority: Not Prioritized ??? CHF (congestive heart failure) ([facility]) 08/22/2022 Priority: Not Prioritized ??? Intentional overdose of drug in tablet form ([facility]) 08/21/2022 Priority: Not Prioritized ??? Type II or unspecified type diabetes mellitus without mention of complication, not stated as uncontrolled ([facility]) 04/23/2010 Medical History: Past Medical History: Diagnosis Date ??? Type 2 diabetes mellitus without complications ([facility]) Surgical History: No past surgical history on file. 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 Having periods OB History No obstetric history on file. Covid Vaccine: Lab Results: Recent Labs Base Name 08/25/22 1659 [id number] 183* SPECIMENTYPE Cap Fingerstick Recent Labs Component Name 12/02/22195408/22/22316 WBC 42.0* 9.6 RBC 3.97 3.04* HCT 28.3* 26.8* HGB 8.9* 8.1* PLTCOUNT 556* 571* MCV 71.3* 88.2 MCH 22.4* 26.6* MCHC 31.4 30.2* MPV - 9.7 Recent Labs Component Name 12/02/22195408/25/22 0315 SODIUM - 142 POTASSIUM 3.9 3.6 CALCIUM 7.6* 7.9* CHLORIDE - 107 CO2 17* 26 GLUCOSE 53* 211* BUN 27* 13 CREATININE 2.95* 1.58* Recent Labs Component Name 08/24/22 0725 MAGNESIUM 2.0 Recent Labs Component Name 08/25/22 0315 PHOS 4.0 Recent Labs Component Name 12/02/221954 BNP 551* Recent Labs Result Component Current Result Troponin I 0.023 (12/02/2022) Recent Labs Result Component Current Result Albumin 2.0 (L) (08/25/2022) Alkaline Phosphatase 313 (H) (12/02/2022) ALT 38 (12/02/2022) Anion Gap 20 (H) (12/02/2022) AST 47 (H) (12/02/2022) Bilirubin Total 0.3 (08/21/2022) eGFR by CKD-EPI 21 (L) (12/02/2022) S DEVELOPER documented in this encounter Procedure Notes * Bryanna Alba MD - 12/02/2022 11:35 PM CSTAssociated Order(s): ETT Placement Endotracheal Tube Placement: Patient Location: OR. Intubation Event Date/Time: 12/02/2022 11:21 PM Procedure: intubation (42121). Procedure Section: Sedation: under general anesthesia. Indications for Airway Management: anesthesia Induction: rapid sequence Patient Position: sniffing Mask Ventilation: not attempted. Blade Type: Video Blade Size: 3 Laryngoscopy View: grade 1 (full cords) Intubation Adjuncts: stylet, cricoid pressure and video laryngoscope Tube: endotracheal tube Placement: oral Tube type: cuff - inflated Tube Size (MM): 7 Depth of Insertion (CM): 22 Measured From: teeth Cuff volume (mL): 10 Cuff Inflated With: air Number of Attempts: 1. Placement Verified By: direct visualization, bilateral breath sounds, chest auscultation and CO2 monitor Tube secured with: adhesive tape. Dentition unchanged? Yes Difficult Airway? No. Procedure Start Time: 12/02/2022 11:21 PM. Staff Section Anesthesia Provider: Eladio Hidalgo MD, Performed the procedure Additional Comments: Inserted by ENEDELIA Johnson, under direct supervision. S DEVELOPER documented in this encounter Miscellaneous Notes * Anesthesia Transfer of Care - Bryanna Alba MD - 12/03/2022 12:13 AM RAILS DEVELOPER ANESTHESIA TRANSFER OF CARE NOTE Today's Date: 12/03/2022 Date of : 1990 Patient: Gay Canales Procedure(s): LEFT ANKLE DISARTICULATION LEVEL 2 @ 2220 Surgeon(s): Primary: Graeme Rodgers MD Resident - Assisting: Rafa Newman MD Preop Diagnosis: Pre-op Diagnois: * Gangrene (CMS/HCC) [I96] Pre-op Meds (From admission, onward) Start Stop Status Route Frequency Ordered 12/03/22 0007 0.9% NaCl injection 1-10 mL See Hyperspace for full Linked Orders Report. -- Dispensed IK PRN 12/03/22 0009 12/03/22 0045 0.9% NaCl injection 3 mL See Hyperspace for full Linked Orders Report. -- Dispensed IK EVERY 8 HOURS 12/03/22812/02/222114 cefepime (Maxipime) 2,000 mg in 0.9% NaCl IV 50 mL IVPB -- Dispensed IV EVERY 12 HOURS 12/02/22203812/02/222114 clindamycin (Cleocin) 900 mg in 50 mL D5W IVPB -- Dispensed IV EVERY 8 HOURS 12/02/22203812/02/222044 dextrose 10 % IV bolus See Hyperspace for full Linked Orders Report. -- Verified IV PRN 12/02/22204512/02/222044 dextrose 10 % IV bolus See Hyperspace for full Linked Orders Report. -- Verified IV PRN 12/02/22204512/02/222044 dextrose IV 25 g 12/02 2113 Completed IV NOW 12/02/22203712/02/222044 glucagon (Glucagen) injection 1 mg -- Verified SC PRN 12/02/22204512/02/222044 glucose (Diabetic Use) (Dex4 Glucose) oral liquid -- Verified PO PRN 12/02/22204512/02/222044 glucose (Diabetic Use) oral gel -- Verified PO PRN 12/02/22204512/02/222044 glucose chew tablet 4 tablet -- Verified PO PRN 12/02/22204512/03/22 0900 heparin injection 7,500 Units -- Sent SC 3 TIMES DAILY 12/03/22 00012/03/22 0000 insulin lispro (HumaLOG;ADMelog) 100 UNIT/ML pen 0-6 Units -- Dispensed SC EVERY 4 HOURS 12/02/22204512/02/222214 lactated ringers IV bolus 12/03 1014 Dispensed IV ONCE 12/02/22215112/02/22 2100 morphine injection 4 mg 12/02 2129 Completed IV ONCE 12/02/22204412/02/22 2030 Tdap (caypwoc-mpdcozunxo-drneo pertussis) (Boostrix) (7y+) injection 0.5 mL 12/02 2109 Completed IM NOW 12/02/22202212/02/222114 vancomycin (Vancocin) 2,500 mg in 500 mL NaCl IVPB Premix 12/02 2342 Completed IV ONCE 12/02/22204612/02/222038 vancomycin (Vancocin) IV dose per pharmacy -- Verified XX DIRECTED 12/02/222038 Post-op Diagnosis: * Gangrene (CMS/HCC) [I96] . No Known Allergies Vitals: Patient Vitals for the past 3 hrs: BP Temp Pulse Resp SpO2 Pain Rating Score #1 12/03/22 0004 103/60 -- 79 21 99 % -- 12/02/220 137/84 97.3 ??F (36.3 ??C) 99 (!) 34 (!) 86 % -- 12/02/222129 -- -- -- -- -- 8 Lines, Drains, and Airways Type Details Placement Removal Peripheral IV Date: 12/02/22; Time: 2099; Orientation: Left; Location: Hand; Gauge: 20 Gauge 12/02/222099 by Jeanna Miller RN ETT Date: 12/02/22; Time: 2320; Placed By: Eladio Hidalgo MD; Vent: mask not attempted; Induction: Rapid Sequence; Blade Type: Video; Blade Size: 3; Laryngoscopy View: Grade 1 (full cords); Intubation Adjuncts: Stylet, Video Laryngoscope, Cricoid Pressure; Tube: Endotracheal Tube; Placement: Oral; Tube Type: Cuffed-inflated; Tube Size(mm): 7 MM; Depth of Insertion: 22 CM; Measured From: teeth;Attempts: 1; Cuff Infated: Air; Cuff Vol(mL): 10 mL; Verified By: Direct visualization, Bilateral breath sounds, Chest Auscultation, CO2 Monitor 12/02/222320 by Bryanna Alba MD 12/03/22 0000 by Bryanna Alba MD Intraprocedure I/O Totals Intake LR (Lactated ringers) 400.00 mL Total Intake 400 mL Patient Transfer Location: PACU Transport Airway: supplemental O2 and spontaneous respirations Transport Monitoring: heart rate and continuous pulse oximetry Complications: None Handoff Given? Yes Checklist or Protocol - [...] understanding of report from the receiving PACUteam. Bryanna Alba MD S DEVELOPER documented in this encounter Plan of Treatment Upcoming Encounters Date Type Department Care Team (Late st Contact Info) Description 11/22/2024 1:30 PM RAILS DEVELOPER Office Visit [facility] - Infectious Disease [address] [place] [address], [facility] [place] [address] Kash Ha MD [address] [place] [address] documented as of this encounter Procedures Procedure Name Priority Date/Time Associated Diagnosis Comments ENDOTRACHEAL TUBE NOTE Routine 12/02/2022 11:21 PM RAILS DEVELOPER documented in this encounter Results * ETT LINE PERFORMABLE (12/02/2022 11:21 PM RAILS DEVELOPER) Narrative Bryanna Alba MD - 12/02/2022 11:21 PM RAILS DEVELOPER Bryanna Alba MD ? 12/02/2022 11:37 PM Endotracheal Tube Placement: ? Patient Location: OR. Intubation Event Date/Time: ??12/02/2022 11:21 PM Procedure: intubation (36654). Procedure Section: ?? Sedation: under general anesthesia. [...] Eladio Hidalgo MD GENERAL ANESTHESIA O RDERABLES documented in this encounter Visit Diagnoses Not on filedocumented in this encounter Administered Medications Inactive Administered Medications - up to 3 most recent administrations Medication Order MAR Action Action Date Dose Rate Site famotidine (Pepcid) injection Intravenous, PRN, Starting on Fri12/02/22 at 2335, Until Fri12/03/22 at 0010, Anesthesia Intra-op $ Given 12/02/2022 11:35 PM RAILS DEVELOPER 20 mg fentaNYL (PF) (Sublimaze) injection Intravenous, PRN, Starting on Fri12/02/22 at 2319, Until Fri12/03/22 at 0010, Anesthesia Intra-op $ Given 12/02/2022 11:19 PM RAILS DEVELOPER 50 mcg lactated ringers infusion Intravenous, CONTINUOUS PRN, Starting on Fri12/02/22 at 2316, Until Fri12/03/22 at 0010, Anesthesia Intra-op $ New Bag/Syringe 12/02/2022 11:16 PM RAILS DEVELOPER lidocaine HCl (PF) (Xylocaine MPF) 2 % injection Intravenous, PRN, Starting on Fri12/02/22 at 2319, Until Fri12/03/22 at 0010, Anesthesia Intra-op $ Given 12/02/2022 11:19 PM RAILS DEVELOPER 100 mg midazolam (Versed) injection Intravenous, PRN, Starting on Fri12/02/22 at 2313, Until Fri12/03/22 at 0010, Anesthesia Intra-op $ Given 12/02/2022 11:13 PM RAILS DEVELOPER 2 mg ondansetron (Zofran) injection Intravenous, PRN, Starting on Fri12/02/22 at 2352, Until Fri12/03/22 at 0010, Anesthesia Intra-op $ Given 12/02/2022 11:52 PM RAILS DEVELOPER 4 mg phenylephrine 100 mcg/mL injection Intravenous, PRN, Starting on Fri12/02/22 at 2337, Until Fri12/03/22 at 0010, Anesthesia Intra-op $ Given 12/02/2022 11:37 PM RAILS DEVELOPER 100 mcg propofol (Diprivan) injection Intravenous, PRN, Starting on Fri12/02/22 at 2319, Until Fri12/03/22 at 0010, Anesthesia Intra-op $ Given 12/02/2022 11:19 PM RAILS DEVELOPER 150 mg rocuronium (Zemuron) injection Intravenous, PRN, Starting on Fri12/02/22 at 2322, Until Fri12/03/22 at 0010, Anesthesia Intra-op $ Given 12/02/2022 11:22 PM RAILS DEVELOPER 30 mg succinylcholine (Anectine) injection Intravenous, PRN, Starting on Fri12/02/22 at 2319, Until Fri12/03/22 at 0010, Anesthesia Intra-op $ Given 12/02/2022 11:19 PM RAILS DEVELOPER 140 mg sugammadex (Bridion) injection Intravenous, PRN, Starting on Fri12/02/22 at 2352, Until Fri12/03/22 at 0010, Anesthesia Intra-op $ Given 12/02/2022 11:52 PM RAILS DEVELOPER 600 mg vancomycin (Vancocin) IV dose per pharmacy Does not apply, DIRECTED, Starting on Fri12/02/22 at 2039, Until Fri12/03/22 at 0653, Vancomycin dosing/monitoring will be managed by pharmacy. Critical lab values should be reported to pharmacy., Indication for anti-infective therapy: Suspected infection, Site of anti-infective therapy: Skin/soft tissue, zzrtr: No $ Given 12/02/2022 11:12 PM RAILS DEVELOPER 1,000 mg documented in this encounter
--- OUTSIDE RECORDS SUMMARY | 2024-11-17 03:04 | XMS_ITS | Encounter Summary ---
Author Organization [facility] Address [address] [place] [address] Care Team Providers Care Gender Studies Professor Name Role Phone Unavailable Primary Care Provider Unavailabl e Reason for Visit * Auth/Cert (Routine) Specialty Diagnoses / Procedures Referred By Jany t Referred To Contact Referral ID Status Reason Start Date Expiration Date Visits Re quested Visits Authorized [id number] 1 1 Encounter Details Date Type Department Care Team (Late st Contact Info) Description 12/05/2022 2:18 PM POLICE MANAGER Anesthesia Event [facility] [address] [place] [id number] Ghassan Rene MD [address] [place] [address] [place] [address] Chanda Hoffman MD [address] [place] [address] [place] [id number] Anesthesia Record Procedure Summary Procedure Name Responsible Anesthesiologist Anesthesia Start Time Anesthesia Stop Time AMPUTATION ABOVE LEFT KNEE (Left) Ghassan Rene MD 12/05/22 1418 12/05/22 1627 Events Date Time Event Comment 12/05/2022 1345 1418 An Start 1418 Pt In Room 1418 An Start Data 1427 PT Reassessment 1431 Induction 1436 An Intubation 1440 Anes Ready 1456 PIV Placement 20 G left arm 1504 Time Out Anesthesia part icipated in timeout at the time documented in the record by nursing 1505 Proc Start 1540 Quick Note LLE amputated 1602 An Emergence 1605 Proc Stop 1608 Extubation 1618 an stop data 1619 Pt out of Room 1619 ANPTO2 1627 An Stop Meds Name Total midazolam 2 mg/2mL injection 2 mg fentaNYL 100 mcg/2ml injection 50 mcg propofol 200mg/20mL injection 200 mg rocuronium 50 mg/5 mL injection 100 mg phenylephrine 100 mcg/mL syringe 300 mcg hydromorphone 2 mg/10mL prefilled syring e 0.5 mg sugammadex 200 mg/2mL injection 400 mg vancomycin (Vancocin) 1,250 mg in 250 mL NaCl IVPB Premix 1,250 mg methadone (Dolophine) injection 20 mg ketamine (Ketalar) 50 mg/5ml prefilled s yringe 50 mg magnesium sulfate 500 mg/mL injection 2 g LR (Lactated ringers) 350 mL LR (Lactated ringers) 150 mL * Agents Name Insp. N2O Exp. Sevoflurane Exp. N2O O2 Insp. Sevoflurane N2O * Blood No blood administrations on file. Lines, Drains, and Airways Type Details Placement Removal Peripheral IV Orientation: Right 12/05/22 1511 by 01/23 0700 by Annabelle Burger RN Peripheral IV Date: 12/03/22; Time : 0000; Orientation: Posterior, Right 12/03/22 0000 by Orquidea Taylor RN 12/08/22 0700 by Annabelle Burger RN Procedural Site (Incision) 12/03/22; 0019; Left; Leg; KERLEX ROLLS SOAKED IN BETADINE, ABDS, KERLEX ROLL WRAP, GABE WRAPS; 12/12/22; 1856 12/03/22 0019 by Colt Vargas RN 12/12/22 1856 by Generic, Auto Release Negative Pressure Wound Therapy 12/05/22; Anterior, Distal, Left, Upper; Leg; 12/08/22; 0910 12/05/22 0000 by Helen Smith RN 12/08/22 0910 by Annabelle Burger RN Urethral Catheter 12/05/22; 1330; condellire; Straight-tip; No; 16; 10 mL; Yes, Seal Intact; 1; Well; 12/09/22; 1230; Per order; JIMMIE Alanis 12/05/22 1330 by Amie Rodriguez RN 12/09/22 1230 by Annabelle Burger RN ETT Date: 12/05/22; Time : 1436; Placed By: Velasquez Tomas DO; Vent: easy mask; Induction: Standard IV; Blade Type: Other (comments); Laryngoscopy View: Grade 1 (full cords); Intubation Adjuncts: Fiberoptic; Tube: Endotracheal Tube; Placement: Oral; Tube Type: Cuffed-inflated; Tube Size(mm): 7.5 MM; Depth of Insertion: 21 CM; Measured From: lips; Attempts: 1; Cuff Infated: Air; Cuff Vol(mL): 8 mL; Verified By: Direct visualization, Bilateral breath sounds, Chest Auscultation, CO2 Monitor 12/05/22 1436 by Velasquez Tomas DO 12/05/22 1608 by Velasquez Tomas DO Peripheral IV Date: 12/05/22; Time : 1456; Orientation: Left; Placed By: DO Genoveva; Tolerance: General Anesthesia 12/05/22 1456 by Velasquez Tomas DO 12/12/22 1237 by Antony Interiano RN documented in this encounter Social History Tobacco [...] and heating? Not hard at all 12/03/2022 [facility] - Occupational Stress [...] slept in a custodial (including now)? No 12/03/2022 Sex and Gender [...] as of this encounter Progress Notes * Milton Addison, - 12/06/2022 7:54 AM CST ANESTHESIA POSTOP EVALUATION NOTE Procedure: AMPUTATION ABOVE LEFT KNEE (Left) Gay Canales is a 32 year old female Patient Vitals for the past 6 hrs: BP Temp Pulse Resp SpO2 Pain Rating Score #1 12/06/22 0407 134/72 97.9 ??F (36.6 ??C) 83 17 98 % -- 12/06/22 0527 -- -- -- -- -- 4 Anesthesia Type: general ETT Pre-op Diagnosis Codes: * Gangrene ([facility]) [I96] Mental Status: awake, alert, oriented, sufficiently recovered from acute administration of anesthesia to participate in the evaluation and neurologic status has returned to preoperative level Neuro Status: No numbness, tingling or visual disturbances Respiratory Function: supported (2L NC) Cardiac Function: stable Postop Pain: acceptable to the patient Postop Hydration: adequate Postop Nausea: none Assessment: no apparent anesthetic complications, patient tolerated procedure well and no evidence of recall Patient Disposition: Release from Anesthesia Care NOTABLE EVENTS: No notable events documented. CE MANAGER * Ghassan Rene MD - 12/05/2022 5:11 PM CST ANESTHESIA POSTOP EVALUATION NOTE Procedure: AMPUTATION ABOVE LEFT KNEE (Left) Gay Canales is a 32 year old female Patient Vitals for the past 6 hrs: BP Pulse Resp SpO2 Pain Scale/Observation Pulse - (SPO2/Cuff) 12/05/22 1342 -- 90 24 90 % -- 90 bpm 12/05/22 1421 -- -- -- -- N -- 12/05/22 1625 139/84 82 20 97 % -- -- 12/05/22 1630 138/87 82 (!) 8 99 % -- -- 12/05/22 1635 149/89 84 (!) 7 100 % -- -- 12/05/22 1640 141/87 84 23 99 % -- -- 12/05/22 1645 141/87 85 22 100 % -- -- 12/05/22 1650 -- 86 22 99 % -- -- 12/05/22 1655 -- 87 11 90 % -- -- 12/05/22 1700 92/77 87 10 93 % -- -- 12/05/22 1702 92/77 88 10 94 % -- -- 12/05/22 1705 -- 87 (!) 8 95 % -- -- Anesthesia Type: general ETT Pre-op Diagnosis Codes: * Gangrene (CMS/HCC) [I96] Mental Status: awake and oriented Neuro Status: No numbness, tingling or visual disturbances Respiratory Function: natural Cardiac Function: stable Postop Pain: adequate Postop Hydration: adequate Postop Nausea: none Assessment: no apparent anesthetic complications, patient tolerated procedure well and no evidence of recall Patient Disposition: Follow Up Needed Additional Comments: Ms Canales is resting comfortably and answering questions appropriately Breathing unlabored and oxygenating well S/p LLE AKA w/ multimodal analgesia and not candidate for PNB BS WNL Stable for transfer to floor NOTABLE EVENTS: No notable events documented. CE MANAGER * Ghassan Rene MD - 12/04/2022 4:44 PM CST ANESTHESIA PREOPERATIVE EVALUATION NOTE Procedure: AMPUTATION ABOVE LEFT KNEE (Left) Vitals: Patient Vitals for the past 6 hrs: BP Temp Pulse Resp SpO2 Pain Rating Score #1 12/04/22 1306 -- -- -- -- -- 0 12/04/22 1200 90/58 97.4 ??F (36.3 ??C) 81 14 90 % 0 12/04/22 1141 -- -- -- -- -- 8 12/04/22 1100 116/96 -- 84 (!) 6 93 % -- LMP: Patient's last menstrual period was 08/08/2022. OB Status: Having periods ANESTHESIA PRE-EVALUATION NOTE History of Present Illness: Gay Canales is a 32 year old female with uncontrolled DM2, HTN (Amlodipine, Furosemide, Coreg currently held), HFpEF (Last echo 08/21/22 with LVEF 60%), morbid obesity and recurrent depression (h/o 2 hospitalizations for suicide attempts) who presented on 12/02 with a left foot wet gangrene and is now s/p emergent left ankle disarticulation with vascular surgery. Currently with an BOBBY, Cr 3.31 baseline 1.4. Antibiotics: Vancomycin, Cefepime PIV: 18 G R hand Airway history: Date: 12/02/22; Time: 2321; Placed By: Eladio Hidalgo MD; Vent: mask not attempted; Induction: Rapid Sequence; Blade Type: Video; Blade Size: 3; Laryngoscopy View: Grade 1 (full cords); IntubationAdjuncts: Stylet, Video Laryngoscope, Cricoid Pressure; Tube: Endotracheal Tube; Placement: Oral; Tube Type: Cuffed-inflated; Tube Size(mm): 7 MM; Depth of Insertion: 22 CM; Measured From: teeth; Attempts: 1; Cuff Infated: Air; Cuff Vol(mL): 10 mL; Verified By: Direct visualization, Bilateral breath sounds, Chest Auscultation, CO2 Monitor The patient is a current non-smoker. Physical Exam: Orientation X3 Airway/Mallampati Score: II Mouth Opening Distance: 2.5 fingerwidths Neck ROM: full TM Distance: > 3 FB Teeth: normal Heart: normal - S1 S2 Lungs: clear to ausculation bilaterally Abdomen Exam: obese Review of Systems: History of anesthetic complications: No Sleep Apnea Risk: Yes GERD: No Poor Exercise Tolerance: Yes Recent Chest Pain: No Shortness of Breath: No AICD/Pacemaker: No Renal Disease: Yes (BOBBY) Diagnostic Tests: ECG(s) reviewed: Yes (12/03/22 NSR 77 bpm) Chest X-Ray(s) reviewed: Yes. Echo(s) reviewed: Yes. Lab(s) reviewed: Yes (12/04/22: K+ 4.3, Cr 3.31, Hgb 8.2). Other Findings: Echo 08/21/2022 Left Ventricle: ??? Left ventricle is normal in size. ??? Normal global systolic left ventricular function. ??? EF 60 %. ??? Left ventricle wall thickness is mildly increased. ??? There are no regional wall motion abnormalities. ??? Left ventricular diastolic function parameters are normal. ?? Mitral Valve: ??? Mild mitral regurgitation. ?? Tricuspid Valve Measurements ??? RVSP: 36 mmHg. ANESTHESIA PLAN ASA Score: 4 NPO Status: Patient instructed to be NPO after midnight Anesthesia Plan: general ETT Planned Induction: intravenous Planned Postop Destination: PACU Anesthetic plan was discussed with: patient Anesthetic Plan discussion was: Consented Use of blood products were discussed with: patient Use of blood product discussion was: Consented The patient's procedural Anesthetic Plan was discussed with the attending and resident. Overall additional findings/comments: I have seen and examined Gay Canales and reviewed all relevant medical records. ASA 4 with 2 RCRI (CHF and DM w/ insulin) Plan for GETA w/ multimodal analgesia and PONV prophylaxis Patient not candidate for PNB given concern for infection. Blood cultures to be sent per surgery request. Patient expressed understanding of potential risks of general anesthesia including but not limited to corneal abrasion, visual impairment or visual loss, mouth injury, dental damage, sore throat, hoarseness, esophageal injury, awareness under anesthesia, nerve injury due to positioning, aspiration, pneumonia, stroke, cardiac event, adverse drug reactions and .Anesthesia plan discussed with patient, who is in agreement. Questions solicited and answered. Okay to proceed. Ghassan Rene MD 12/05/2022 1:45 PM . BMI, Height, Weight Tobacco History Estimated body mass index is 51.28 kg/m?? as calculated from the following: Height as of this encounter: 1.702 m (5' 7 ). Weight as of this encounter: 148.5 kg (327 lb 6.1 oz). Social History Tobacco Use Smoking Status Never Smokeless Tobacco Never Alcohol History Drug History Social History Substance and Sexual Activity Alcohol Use Never Social History Substance and Sexual Activity Drug Use Never Outpatient Medications: Inpatient Medications: Outpatient Medications Marked as Taking for the 12/02/22 encounter (Hospital Encounter) Medication Sig Last Dose ??? insulin glargine Inject 10 (ten) Units subcutaneously at bedtime ??? insulin lispro Inject 5 (five) Units subcutaneously 3 times daily with meals Current Facility-Administered Medications Medication Dose Last Admin ??? 0.9% NaCl 3 mL 3 mL at 12/04/22 1330 And ??? 0.9% NaCl 1-10 mL ??? acetaminophen 500 mg 500 mg at 12/04/22 1141 ??? amLODIPine 10 mg 10 mg at 12/04/22 0916 ??? cefepime 2 g Stopped at 12/04/22 0902 ??? FLUoxetine 20 mg ??? heparin 7,500 Units 7,500 Units at 12/04/22 1330 ??? HYDROmorphone 0.2 mg 0.2 mg at 12/03/22 2138 ??? insulin glargine 5 Units ??? insulin aspart 0-12 Units 4 Units at 12/04/22 1141 ??? oxyCODONE (immediate release) 5 mg Or ??? oxyCODONE (immediate release) 10 mg 10 mg at 12/04/22 1141 Allergies: No Known Allergies Relevant Problems No relevant active problems Problem List: Patient Active Problem List Diagnosis Date Noted ??? Left foot infection 12/02/2022 Priority: Not Prioritized ??? Hypoxia 12/02/2022 Priority: Not Prioritized ??? Essential hypertension 12/02/2022 Priority: Not Prioritized ??? Swelling of left foot 12/02/2022 Priority: Not Prioritized ??? Severe recurrent major 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 psychotic features ([facility]) 08/22/2022 Priority: Not Prioritized ??? PTSD (post-traumatic stress disorder) 08/22/2022 Priority: Not Prioritized ??? CHF (congestive heart failure) ([facility]) 08/22/2022 Priority: Not Prioritized ??? Intentional overdose of drug in tablet form ([facility]) 08/21/2022 Priority: Not Prioritized ??? Type II or unspecified type diabetes mellitus without mention of complication, not stated as uncontrolled ([facility]) 04/23/2010 Medical History: Past Medical History: Diagnosis Date ??? Type 2 diabetes mellitus without complications ([facility]) Surgical History: Past Surgical History: Procedure Laterality Date ??? Leg Amputation, Below Knee Left 12/02/2022 Left; LEFT ANKLE DISARTICULATION LEVEL 2 @ 2220 PROGRAM COORDINATOR Status: Patient's last menstrual period was 08/08/2022. Having periods OB History No obstetric history on file. Covid Vaccine: Lab Results: Recent Labs Base Name 12/04/22 1140 [id number] 246* SPECIMENTYPE Cap Fingerstick Recent Labs Component Name 12/04/22 0358 WBC 24.8* RBC 3.65* HCT 28.0* HGB 8.2* PLTCOUNT 446* MCV 76.7* MCH 22.5* MCHC 29.3* MPV 8.7* Recent Labs Component Name 12/03/22 0410 12/03/22 0242 ABORH A POS A POS ABSCG - NEG Recent Labs Component Name 12/03/22 1659 BLOODU 2+* WBCU 6-10* NITRITE Negative PROTEINU 3+* CREATININEUR 227 Recent Labs Component Name 12/04/22 1605 12/02/22 1955 08/25/22 0315 SODIUM - - 142 POTASSIUM 4.3 - 3.6 CALCIUM 7.3* - 7.9* CHLORIDE - - 107 CO2 16* - 26 GLUCOSE 238* - 211* BUN 36* - 13 CREATININE 3.31* - 1.58* - = values in this interval not displayed. Recent Labs Component Name 12/04/22 1605 MAGNESIUM 2.3 Recent Labs Component Name 12/04/22 0358 PHOS 5.1 Recent Labs Component Name 12/03/22 1856 PH 7.28* PO2VEN 88* PCF4TNS 44 [id number] 20.7 BEVEN -5.7* [id number] 11.8 [id number] 97 Recent Labs Component Name 12/02/22 1955 BNP 551* Recent Labs Result Component Current Result Troponin I 0.023 (12/02/2022) Recent Labs Result Component Current Result Albumin 2.0 (L) (08/25/2022) Alkaline Phosphatase 313 (H) (12/02/2022) ALT 38 (12/02/2022) Anion Gap 20 (H) (12/04/2022) AST 47 (H) (12/02/2022) Bilirubin Total 0.3 (08/21/2022) eGFR by CKD-EPI 18 (L) (12/04/2022) CE MANAGER documented in this encounter Procedure Notes * Velasquez Tomas, DO - 12/05/2022 3:21 PM CSTAssociated Order(s): ETT Placement Endotracheal Tube Placement: Patient Location: OR. Intubation Event Date/Time: 12/05/2022 2:36 PM Procedure: intubation ([id number]). Procedure Section: Sedation: under general anesthesia. Indications for Airway Management: anesthesia Induction: standard IV Patient Position: sniffing, ramp/troop pillow and supine Mask Ventilation: easy. Blade Type: other - plese comment Laryngoscopy View: grade 1 (full cords) Intubation Adjuncts: fiberoptic Tube: endotracheal tube Placement: oral Tube type: cuff - inflated Tube Size (MM): 7.5 Depth of Insertion (CM): 21 Measured From: lips Cuff volume (mL): 8 Cuff Inflated With: air Number of Attempts: 1. Placement Verified By: direct visualization, bilateral breath sounds, chest auscultation and CO2 monitor Tube secured with: adhesive tape. Dentition unchanged? Yes Difficult Airway? No. Procedure Start Time: 12/05/2022 2:36 PM. Staff Section Anesthesia Provider: Velasquez Tomas DO, Performed the procedure Provider #1: Chanda Hoffman MD. Additional Comments: Following IV induction of anesthesia a size 5 I-gel was inserted and a 7.5 ETTwas intruduced through the I-gel. A flexible bronchoscope was then passed through the ETT and inserted until the jennifer was visualized, at which point the ETT was inserted down over the bronchoscope as a smart stylet and position above the jennifer was confirmed. The I-gel was left in place as a bite block. . CE MANAGER documented in this encounter Miscellaneous Notes * Addendum Note - Milton Addison DO - 12/06/2022 7:55 AM CST Addendum created 12/06/22 0755 by Milton Addison DO Clinical Note Signed CE MANAGER * Addendum Note - Ghassan Rene MD - 12/05/2022 5:31 PM CST Addendum created 12/05/22 1731 by Ghassan Rene MD Intraprocedure Meds edited CE MANAGER * Anesthesia Transfer of Care - Velasquez Tomas DO - 12/05/2022 4:27 PM POLICE MANAGER ANESTHESIA TRANSFER OF CARE NOTE Today's Date: 12/05/2022 Date of : 1990 Patient: Gay Canales Procedure(s): AMPUTATION ABOVE LEFT KNEE Surgeon(s): Primary: Graeme Rodgers MD Resident - Assisting: Tyrel Gilliam MD Preop Diagnosis: Pre-op Diagnois: * Gangrene (CMS/HCC) [I96] Pre-op Meds (From admission, onward) Start Stop Status Route Frequency Ordered 12/05/22 1242 0.9% NaCl infusion rate and volume 12/06 1241 Verified IV ONCE PRN 12/05/22 1243 12/03/22 0007 0.9% NaCl injection 1-10 mL See Hyperspace for full Linked Orders Report. -- Dispensed IK PRN 12/03/22 0009 12/03/22 0045 0.9% NaCl injection 3 mL See Hyperspace for full Linked Orders Report. -- Dispensed IK EVERY 8 HOURS 12/03/22 0009 12/03/22 0215 acetaminophen (Tylenol) tablet 500 mg -- Dispensed PO EVERY 6 HOURS 12/03/22 0140 12/04/22 0930 amLODIPine (Norvasc) tablet 10 mg -- Dispensed PO DAILY 12/04/22 0852 12/02/22 2115 cefepime (Maxipime) 2,000 mg in 0.9% NaCl IV 50 mL IVPB -- Dispensed IV EVERY 12 HOURS 12/02/22 2039 12/05/22 1500 fluconazole (Diflucan) tablet 150 mg 12/06 0259 Dispensed PO ONCE 12/05/22 1434 12/03/22 0900 FLUoxetine (PROzac) capsule 20 mg Note to Pharmacy: OP sig: Take 1 (one) capsule by mouth once daily -- Dispensed PO DAILY 12/03/22 0039 12/03/22 0800 heparin injection 7,500 Units -- Dispensed SC 3 TIMES DAILY 12/03/22 0727 12/03/22 0220 HYDROmorphone (Dilaudid) injection 0.2 mg -- Dispensed IV EVERY 4 HOURS PRN 12/03/22 0221 12/05/22 2100 insulin glargine (Lantus) pen 10 Units -- Verified SC AT BEDTIME 12/05/22 1434 12/05/22 0300 insulin lispro (HumaLOG;ADMelog) 100 UNIT/ML pen 0-12 Units -- Verified SC EVERY 4 HOURS 12/05/22 0259 12/05/22 0815 insulin lispro (HumaLOG;ADMelog) 100 UNIT/ML pen 5 Units -- Verified SC 3 TIMES DAILY WITH MEALS 12/05/22 0739 12/05/22 1515 nystatin (Mycostatin) powder -- Dispensed TP 3 TIMES DAILY 12/05/22 1436 12/03/22 0139 oxyCODONE (immediate release) (Roxicodone) tablet 10 mg See Hyperspace for full Linked Orders Report. -- Dispensed PO EVERY 6 HOURS PRN 12/03/22 0140 12/03/22 0139 oxyCODONE (immediate release) (Roxicodone) tablet 5 mg See Hyperspace for full Linked Orders Report. -- Verified PO EVERY 6 HOURS PRN 12/03/22 0140 12/04/22 1800 sodium bicarbonate tablet 650 mg -- Dispensed PO 4 TIMES DAILY 12/04/22 1725 12/05/22 1500 vancomycin (Vancocin) 1,250 mg in 250 mL NaCl IVPB Premix 12/05 1501 Completed IV ONCE 12/05/22 1437 12/05/22 1444 vancomycin (Vancocin) IV dose per pharmacy -- Verified XX DIRECTED 12/05/22 1444 Post-op Diagnosis: * Gangrene (CMS/HCC) [I96] . No Known Allergies Vitals: Patient Vitals for the past 3 hrs: Pulse Resp SpO2 12/05/22 1342 90 24 90 % Lines, Drains, and Airways Type Details Placement Removal Peripheral IV Date: 12/03/22; Time: 0000; Orientation: Posterior, Right; Location: Hand; Gauge: 18 Gauge 12/03/22 0000 by Orquidea Taylor RN ETT Date: 12/05/22; Time: 1436; Placed By: Velasquez Tomas DO; Vent: easy mask; Induction: Standard IV; Blade Type: Other (comments); Laryngoscopy View: Grade 1 (full cords); Intubation Adjuncts:Fiberoptic; Tube: Endotracheal Tube; Placement: Oral; Tube Type: Cuffed-inflated; Tube Size(mm): 7.5 MM; Depth of Insertion: 21 CM; Measured From: lips; Attempts: 1; Cuff Infated: Air; Cuff Vol(mL): 8 mL; Verified By: Direct visualization, Bilateral breath sounds, Chest Auscultation, CO2 Monitor 12/05/22 1436 by Velasquez Tomas DO 12/05/22 1608 by Velasquez Tomas DO Peripheral IV Date: 12/05/22; Time: 1456; Orientation: Left; Location: Hand; Placed By: DO Genoveva; Gauge: 20 Gauge; Locals: None; Tolerance: General Anesthesia 12/05/22 1456 by Velasquez Tomas DO Peripheral IV Orientation: Right; Location: Hand; Gauge: 18 Gauge 12/05/22 1511 Intraprocedure I/O Totals Intake LR (Lactated ringers) 500.00 mL vancomycin (Vancocin) 1,250 mg in 250 mL NaCl IVPB Premix 250.00 mL Total Intake 750 mL Output Urine 125 mL Total Output 125 mL Net Net Volume 625 mL Patient Transfer Location: PACU Transport Airway: [...] understanding of report from the receiving PACUteam. Velasqeuz Tomas DO CE MANAGER documented in this encounter Plan of Treatment Upcoming Encounters Date Type Department Care Team (Late st Contact Info) Description 11/22/2024 1:30 PM POLICE MANAGER Office Visit [facility] - Infectious Disease [address] [place] [address], [facility] [place] [address] Kash Ha MD [address] [place] [id number] documented as of this encounter Procedures Procedure Name Priority Date/Time Associated Diagnosis Comments ENDOTRACHEAL TUBE NOTE Routine 12/05/2022 2:36 PM POLICE MANAGER documented in this encounter Results * ETT LINE PERFORMABLE (12/05/2022 2:36 PM POLICE MANAGER) Narrative Ghassan Rene MD - 12/05/2022 2:36 PM POLICE MANAGER Velasquez Tomas DO ? 12/05/2022 ??3:27 PM Endotracheal Tube Placement: ? Patient Location: OR. Intubation Event Date/Time: ??12/05/2022 2:36 PM Procedure: intubation ([id number]). Procedure Section: ?? Sedation: under general anesthesia. [...] Ghassan Rene MD GENERAL ANESTHESIA O RDERABLES documented in this encounter Visit Diagnoses Not on filedocumented in this encounter Administered Medications Inactive Administered Medications - up to 3 most recent administrations Medication Order MAR Action Action Date Dose Rate Site fentaNYL (PF) (Sublimaze) injection Intravenous, PRN, Starting on [place] 12/05/22 at 1431, Until [place] 12/05/22 at 1627, Anesthesia Intra-op $ Given 12/05/2022 2:31 PM POLICE MANAGER 50 mcg HYDROmorphone HCl-NaCl 2-0.9 MG/10ML-% SOSY Intravenous, PRN, Starting on [place] 12/05/22 at 1507, Until [place] 12/05/22 at 1627, Anesthesia Intra-op $ Given 12/05/2022 3:07 PM POLICE MANAGER 0.5 mg ketamine (Ketalar) 50-0.9 MG/5ML-% prefilled syringe Intravenous, PRN, Starting on [place] 12/05/22 at 1512, Until [place] 12/05/22 at 1627, Anesthesia Intra-op $ Given 12/05/2022 3:12 PM POLICE MANAGER 50 mg lactated ringers infusion Intravenous, CONTINUOUS PRN, Starting on [place] 12/05/22 at 1418, Until [place] 12/05/22 at 1627, Anesthesia Intra-op $ New Bag/Syringe 12/05/2022 2:18 PM POLICE MANAGER lactated ringers infusion Intravenous, CONTINUOUS PRN, Starting on [place] 12/05/22 at 1456, Until [place] 12/05/22 at 1627, Anesthesia Intra-op $ New Bag/Syringe 12/05/2022 2:56 PM POLICE MANAGER magnesium sulfate injection Intravenous, PRN, Starting on [place] 12/05/22 at 1517, Until [place] 12/05/22 at 1627, Anesthesia Intra-op $ Given 12/05/2022 3:17 PM POLICE MANAGER 2 g methadone (Dolophine) injection Intramuscular, PRN, Starting on [place] 12/05/22 at 1511, Until [place] 12/05/22 at 1627, Anesthesia Intra-op $ Given 12/05/2022 3:11 PM POLICE MANAGER 20 mg midazolam (Versed) injection Intravenous, PRN, Starting on [place] 12/05/22 at 1418, Until [place] 12/05/22 at 1627, Anesthesia Intra-op $ Given 12/05/2022 2:18 PM POLICE MANAGER 2 mg phenylephrine 100 mcg/mL injection Intravenous, PRN, Starting on [place] 12/05/22 at 1439, Until [place] 12/05/22 at 1627, Anesthesia Intra-op $ Given 12/05/2022 3:20 PM POLICE MANAGER 100 mcg $ Given 12/05/2022 2:39 PM POLICE MANAGER 200 mcg propofol (Diprivan) injection Intravenous, PRN, Starting on He[place] 12/05/22 at 1431, Until [place] 12/05/22 at 1627, Anesthesia Intra-op $ Given 12/05/2022 2:31 PM POLICE MANAGER 200 mg rocuronium (Zemuron) injection Intravenous, PRN, Starting on He[place] 12/05/22 at 1432, Until [place] 12/05/22 at 1627, Anesthesia Intra-op $ Given 12/05/2022 3:07 PM POLICE MANAGER 50 mg $ Given 12/05/2022 2:32 PM POLICE MANAGER 50 mg sugammadex (Bridion) injection Intravenous, PRN, Starting on Heide 12/05/22 at 1559, Until Heide 12/05/22 at 1627, Anesthesia Intra-op $ Given 12/05/2022 3:59 PM POLICE MANAGER 400 mg vancomycin (Vancocin) 1,250 mg in 250 mL NaCl IVPB Premix 1,250 mg, at 200 mL/hr, Intravenous, ONCE, 1 dose, On Heide 12/05/22 at 1500, Indication for anti-infective therapy: Documented infection, Site of anti-infective therapy: Blood, Skin/soft tissue $ Given 12/05/2022 3:01 PM 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
--- OUTSIDE RECORDS SUMMARY | 2024-11-17 03:04 | XMS_ITS | Encounter Summary ---
Author Organization [facility] Address [address] [place] [address] Care Team Providers Care Auto Brake Technician Name Role Phone Unavailable Primary Care Provider Unavailabl e Reason for Visit * Auth/Cert Specialty Diagnoses / Procedures Referred By Jany t Referred To Contact Diagnoses intentional OD Referral ID Status Reason Start Date Expiration Date Visits Re quested Visits Authorized [id number] 1 Encounter Details Date Type Department Care Team (Latest Contact Info) Description 08/21/2022 8:11 AM CDT - 08/25/2022 5:44 PM CDT Hospital Encounter [facility] [address] [place] [address] Son, Devon [place], [place] [address] [place] [address] Jimmy Jansen MD [address] [place] [address] Hospitalist Discharge Disposition: Home or Self Care Social [...] of Binge Drinking Not on file 08/03 Hunger Vital Sign Answer Date Recorded Within the past 12 months, y ou worried that your food would run out before you got the money to buy more. Never true 08/21/20 22 Within the past 12 months, t he food you bought just didn't last and you didn't have money to get more. Never true 08/21/2022 Sex and Gender Information Value Date Recorded Sex Assigned at Not on file Gender Identity Not on file Sexual Orientation Not on file COVID-19 Exposure Response Date Recorded In the last 10 days, have yo u been in contact with someone who was confirmed or suspected to have Coronavirus/COVID-19? No / Unsure 08/21/2022 8:11 AM CDT documented as of this encounter Last Filed Vital Signs Vital Sign Reading Time Taken Comments Blood Pressure 131/82 08/25/2022 5:01 PM CDT Pulse 73 08/25/2022 5:01 PM CDT Temperature 37.1 ??C (98.8 ??F) 08/25/2022 5:01 PM CD T Respiratory Rate 18 08/25/2022 5:01 PM CDT Oxygen Saturation 90% 08/25/2022 5:01 PM CDT Inhaled Oxygen Concentration - - Weight 128.8 kg (283 lb 14.4 oz) 08/21/2022 8:13 AM CDT Height 170.2 cm (5' 7 ) 08/21/2022 8:13 AM CDT Body Mass Index 44.47 08/21/2022 8:13 AM CDT documented in this encounter Functional [...] No 08/21/2022 documented as of this encounter Discharge Summaries * Isaak An MD - 08/25/2022 10:07 AM CDT Images from the original note were not included. Physician Discharge Summary Name: Gay Canales Date of : 1990 Admit date:08/21/2022 Discharge date: 08/25/22 Code Status at Discharge: Full Code Admitting Physician: Dr. Sawyer Guthrie Attending Physician:Jimmy Jansen MD Discharge Physician: Isaak An MD Disposition: Home Condition at discharge: stable Diagnosis: Heart Failure with Preserved Ejection Fraction Acute Hypoxic Respiratory Failure Acute Kidney Injury HTN Intentional Drug Overdose Uncontrolled T2DM Hospital Course: aGy Canales is a 31 year old female with PMH significant for Uncontrolled T2DM (a1c of 11), class 3 obesity, HTN, who was initially presented to a OSH after ingestion of 10 tabelets of norvasc (10mg), 10 tablets of lasix (20 mg) and 18 tabs of 325 mg iron. Poison control were notified and they recommended supportive care. Her labs at the time were pertinent for BOBBY with creatinine of 1.75, BNP of 3111. On admission here she was started on fluids and psych was consulted. Over the course of the day she suddenly became hypoxic noted to be saturating in the 80s and CXR revealed cardiomegaly with increased vascular congestion. ECHO done revealed EF of 60%, mild mitral regurgitation and normal pressures. She was diuresed and oxygen requirements improved and patient was weaned off of oxygen from 2L NC to RA. As her O2 sats remained low, ct chest was obtained which showed bilateral pleural effusion, greater on right as well as sequelae from previous PNA. Pulm was consulted, recommended OPfollow up for repeat imaging. Psych cleared patient medical discharge to home. Pt was stable for discharge and an ambulatory oximetry test done at bedside showed that patient does not require oxygen.Recommened beta zuleima, norvasc, fluoxetine. Recommended FU with PCP within 6 days of discharge, FU with pulmonology and psychiatry within 2 weeks of discharge. Exam on the day of discharge: Physical Exam Constitutional: Appearance: Normal appearance. She is obese. HENT: Head: Normocephalic and atraumatic. Right Ear: External ear normal. Left Ear: External ear normal. Nose: Nose normal. Mouth/Throat: Mouth: Mucous membranes are moist. Pharynx: Oropharynx is clear. Eyes: Conjunctiva/sclera: Conjunctivae normal. Neck: Comments: JVD improving Cardiovascular: Rate and Rhythm: Normal rate and regular rhythm. Pulses: Normal pulses. Heart sounds: Normal heart sounds. Pulmonary: Effort: Pulmonary effort is normal. Breath sounds: Normal breath sounds. Abdominal: General: Bowel sounds are normal. There is distension. Palpations: Abdomen is soft. Comments: Trace edema noted on the flanks of the abdomen. Musculoskeletal: Cervical back: Neck supple. Right lower leg: Edema present. Left lower leg: Edema present. Comments: +1 lower extremity edema up to the knee, improving Skin: General: Skin is dry. Neurological: Mental Status: She is alert and oriented to person, place, and time. Psychiatric: Comments: Flat mood Laboratory & Imaging Studies: Recent Labs Component Name 08/22/2231608/21/22 0846 WBC 9.6 11.7* RBC 3.04* 3.25* HGB 8.1* 8.6* HCT 26.8* 28.6* MCV 88.2 88.0 MCHC 30.2* 30.1* PLTCOUNT 571* 584* NEUTPCT 61.7 69.5 LYMPHPCT 24.8 21.2 BASOPHILPCT 0.2 0.3 GRANSIMMPCT 0.4 0.5 NEUTABS 5.91 8.13* LYMPHABS 2.37 2.48 BASOABS 0.02 0.03 Recent Labs Component Name 08/25/22 0315 08/24/22 1404 08/24/22 0725 08/22/227 08/21/22 0847 SODIUM 142 143 138 - 146* POTASSIUM 3.6 3.7 5.2* - 2.9* CHLORIDE 107 103 110* - 108* CO2 26 30 20* - 28 BUN 13 9 8 - 7 CREATININE 1.58* 1.43* 1.42* - 1.62* GLUCOSE 211* 145* 165* - 180* CALCIUM 7.9* 8.2* 7.8* - 8.2* ALT - - - - 11 ALKPHOS - - - - 87 AST - - - - 5 TBIL - - - - 0.3 TPROT - - - - 5.5* EGFR 45* 51* 51* - 44* ALBUMIN 2.0* 2.1* 1.7* - 2.2* - = values in this interval not displayed. Chest Xray on Admission The lung nunn are hypoventilated. There are diffuse pulmonary infiltrates right greater than left. There may be a small right pleural effusion. There is no pneumothorax. There is cardiomegaly. There is pulmonary vascular congestion. Chest xray 08/22/22 Moderate cardiomegaly and moderate right pleural effusion are similar to the previous examination. There is diffuse thickening of interstitial markings. No pneumothorax. CT Chest WO Contrast Labs Pending NA Consultations Psychiatry Pulmonary Discharge Orders Discharge Procedure Orders Why you were hospitalized Order Specific Question Answer Comments Your discharge diagnosis is: Suicide attempt ([facility]) [[id number]] Your discharge diagnosis is: Volume overload [4363555] Daily weights -- Immediately upon admission, obtain baseline weight and write on log. -- Weigh patient daily, in similar clothing, after urinating and before breakfast. -- Call attending provider if patient has a weight gain of more than 2-3 pounds in one day or 4-5 pounds in 5 days. Cardiac (heart-healthy) diet -- Limit your sodium to 3 grams per day. -- Limit the amount of fat you eat to 40 grams (restricted fat) per day. -- Low cholesterol Activity as tolerated Rest today, and increase your activity level tomorrow as tolerated. Follow up with provider Order Specific Question Answer Comments Follow Up Instructions: Please follow up with your primary care doctor within 6 days of discharge. Follow up with provider Order Specific Question Answer Comments Follow Up Instructions: Please follow up with your lung doctor within 2 weeks of discharge. Follow up with provider Order Specific Question Answer Comments Follow Up Instructions: Please follow up with psychiatry within 2 weeks of discharge. ?? If follow up appointment has not been made, patient to call physician for appt ?? Patient to bring all medications to next visit Discharge Time:greater than 30 minutes Allergies: No Known Allergies Current Discharge Medication List START taking these medications Instructions Authorizing Provider FLUoxetine 20 MG capsule Commonly known as: PROzac Quantity Dispensed: 30 capsule Start taking on: August 26, 2022 Take 1 (one) capsule by mouth once daily Isaak An MD CONTINUE taking these medications which have CHANGED Instructions Authorizing Provider carvedilol 12.5 MG tablet What changed: when to take this Commonly known as: Coreg Quantity Dispensed: 60 tablet Take 1 (one) tablet by mouth 2 times daily with morning and evening meal Isaak An MD CONTINUE taking these medications which have NOT CHANGED Instructions Authorizing Provider amLODIPine 10 MG tablet Commonly known as: Norvasc Take 10 mg by mouth once daily FeroSul 325 (65 FE) MG tablet Generic drug: ferrous sulfate Take 325 mg by mouth daily with breakfast furosemide 20 MG tablet Commonly known as: Lasix Take 20 mg by mouth once daily insulin glargine vial Commonly known as: Lantus Inject 10 Units subcutaneously at bedtime insulin lispro 100 UNIT/ML vial Commonly known as: HumaLOG Inject 5 Units subcutaneously 3 times daily with meals STOP taking these medications levoFLOXacin 750 MG tablet Commonly known as: Levaquin CC: No primary care provider on file. Pt stated she has name of her PCP. Associated attestation - Jimmy Jansen MD - 08/25/2022 3:16 PM CDT I have personally seen, examined, and been fully involved in the management of Gay Canales. I confirm the assessment and plan as written by Dr. An on 08/25/2022. In addition, I find: CT chest revealed bilateral extensive alveolar infiltrates and some ground glass opacities. She told us with her recent treatment for pneumonia she felt short of breath for only one day and had no fever or chills. It's possible that her CT chest appearance is sequale of atypical pneumonia. She will follow with Dr. Gordon as on outpatient for further evaluation. We walked the patient in the busch and her SpO2 remained > 88%. Jimmy Jansen MD 08/25/2022 3:14 PM documented in this encounter Medications at Time of Discharge Medication Sig Dispensed Refills Start Date End Date amLODIPine (Norvasc) 10 MG tablet Take 10 mg by mouth once daily 08/08/2022 12/11/2022 carvedilol (Coreg) 12.5 MG tablet Take 1 (one) tablet by mouth 2 times daily with morning and evening meal 60 tablet 08/25/2022 12/12/2022 FeroSul 325 (65 Fe) MG tablet Take 1 (one) tablet by mouth daily with breakfast 08/08/2022 09/01/2024 FLUoxetine (PROzac) 20 MG capsule Take 1 (one) capsule by mouth once daily 30 capsule 08/26/2022 12/12/2022 furosemide (Lasix) 20 MG tablet Take 20 mg by mouth once daily 08/08/2022 12/12/2022 insulin glargine (Lantus/Semglee) 100 units/ml injection Inject 10 (ten) Units subcutaneously at bedtime 05/09/2023 insulin lispro (HumaLOG) 100 UNIT/ML vial Inject 5 (five) Units subcutaneously 3 times daily with meals 08/13/2022 05/09/2023 documented as of this encounter Progress Notes * Evelia Soto LPN - 08/25/2022 3:36 AM CDT Shift Summary: pt rested quietly this shift. Pt reports no SI. Pt did take a shower this shift. Pt noted to have [employer] this shift for dinner. Insulin given per protocol. Call light and phone in reach. Will continue to monitor. * Leslie Valles RN - 08/24/2022 4:28 PM CDT Problem: Suicide Risk Goal: Patient will be free of self-inflicted injury and suicide risk during hospitalization Outcome: Progressing Problem: ELOPEMENT/ABDUCTION Goal: Risk for elopement &/or abduction during hospitalization is minimized Outcome: Progressing Problem: Pain/Discomfort Goal: Patient exhibits reduced pain/discomfort as evidenced by pain scores Outcome: Progressing Goal: Patient uses pharmacological and non-pharmacological pain management strategies. Outcome: Progressing Goal: Patient verbalizes acceptable level of pain relief and ability to engage in desired activity. Outcome: Progressing Problem: Mobility Goal: Ped LTG - Patient will ambulate 150 feet independently. Outcome: Progressing Problem: Fall Risk Goal: Fall risk and fall related injury risk are minimized (interventions related to the fall risk can be found in the flowsheet documentation) Outcome: Progressing Problem: Glycemia Imbalance Goal: Clinical indication of glycemia balance is achieved Outcome: Progressing * Obinna Galindo MD - 08/24/2022 2:25 PM CDT Psychiatry Consult Progress Note Name: Gay Canales Admit Date: 08/21/2022 : 1990 Evaluation Date: 08/24/2022 CSN #: [id number] Room #: 317 Attending Physician: No admitting provider for patient encounter. Subjective Assessment: Awake and alert in her room Talking on phone to support person. She is pleasant and cooperative. Denies current suicidal ideations. Her family was here. Her sister said that this happed because of them discussing a similar case that happened. Patient currently denied any S/I or H/I. Her potassium is 5.2. Gay Canales's current suicide risk level is low Diagnosis: Severe recurrent major 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 psychotic features (CMS/HCC) F33.2, Intentional overdose of drug in tablet form (CMS/HCC) T50.902A, PTSD (post-traumatic stress disorder) F43.10 ?? Treatment Plan: Plan is to discontinue the sitter. She denies any SI or HI. Spoke to the sister whois comfortable taking her back. Patient said that because of the trigger she started having flashbacks and she did and OD. She does not want to kill herself. We can discharge her when she is medically stable. Transfer to psychiatry: YES Mental Status Exam: General Appearance: In psych safe scrubs Behaviors: Cooperative Eye Contact: Good Mood: Depressed and Anxious Affect: Reactive Speech: Clear Motor Activity: Ambulates independently Flow of Thought: Logical Thought Content: Delusions: Not present Hallucinations: Not present Suicidality: Denies Homicidality: Denies Preoccupations: not present Obsessions: not present Sensorium/Memory: Alert and Oriented x 3 Insight/Judgement: Improving Data: Sleep: Good Appetite: Diet for the past 24 hrs: % Meal Taken 08/23/22 1506 100 % 08/24/22 0835 100 % Vital Signs: Patient Vitals for the past 24 hrs: BP Temp Temp src Pulse Resp SpO2 08/24/22 0758 -- -- -- -- -- 92 % 08/24/22 0714 150/91 98.6 ??F (37 ??C) Oral 84 18 92 % 08/24/22 0601 134/84 99.1 ??F (37.3 ??C) Oral 84 18 92 % 08/23/222311 145/81 98.1 ??F (36.7 ??C) Oral 85 18 92 % 08/23/222002 133/85 97.6 ??F (36.4 ??C) Oral 80 18 94 % 08/23/22 1503 142/92 97.2 ??F (36.2 ??C) Oral 77 19 93 % Admission weight: Weight: 283 lb 14.4 oz (08/21/22812) Most recent weight: Weight: 283 lb 14.4 oz (08/21/22812) Recent Labs: Recent Labs Component Name 08/24/2272408/23/2231308/22/2231608/21/22 0847 SODIUM 138 143 144 146* POTASSIUM 5.2* 3.5 3.5 2.9* CHLORIDE 110* 109* 109* 108* CO2 20* 28 26 28 BUN 8 6* 7 7 CREATININE 1.42* 1.37* 1.49* 1.62* GLUCOSE 165* 157* 204* 180* CALCIUM 7.8* 8.0* 8.1* 8.2* ALKPHOS - - - 87 ALBUMIN 1.7* 2.0* 2.0* 2.2* ALT - - - 11 AST - - - 5 TBIL - - - 0.3 TPROT - - - 5.5* PHOS 4.5 3.2 3.2 - Recent Labs Component Name 08/22/2231608/21/22 0846 WBC 9.6 11.7* HGB 8.1* 8.6* HCT 26.8* 28.6* PLTCOUNT 571* 584* No results for input(s): OBFTBEDWW2NS, TDBNMR7BP, COCAINE, ETHANOL in the last 43634 hours. Invalid input(s): XQIGJIDB0ZI, BQYPIUPU8WY, LTB5KVEL48, VCBHWTGPSK1RC, HSDRTGPTE4KU No results for input(s): HCGQUAL, HCGURINE in the last 91158 hours. No results for input(s): TSH in the last 07991 hours. No results for input(s): RPR in the last 76552 hours. No results for input(s): COLORUA, CLARITYUA, SPECGRAVUA, PHUA, PROTEINUA, BLOODUA, LEUKOCYTEUA, NITRITEUA, GLUCOSEUA, KETONEUA, BILIRUBINUA, UROBILINUA, REDSUBUA, WBCUAAUTO, RBCUAAUTO, EPITHUAAUTO, BACTUAAUTO, YEASTUAAUTO, SPERMUAAUTO, CASTUAAUTO, CRYSUAAUTO, MUCUSUAAUTO in the last 50356 hours. No results for input(s): VPA in the last 33627 hours. No results for input(s): LITHIUM in the last 38010 hours. No results for input(s): CARBAMAZEPIN in the last 09712 hours. Current Scheduled Medications: Current Facility-Administered Medications Medication Dose Route Frequency ??? 0.9% NaCl injection 3 mL 3 mL Intracatheter q8h ??? amLODIPine (Norvasc) tablet 10 mg 10 mg Oral QDAY ??? carvedilol (Coreg) tablet 12.5 mg 12.5 mg Oral BID WC ??? FLUoxetine (PROzac) capsule 20 mg 20 mg Oral QDAY ??? furosemide (Lasix) injection 40 mg 40 mg Intravenous QDAY ??? heparin injection 5,000 Units 5,000 Units Subcutaneous BID ??? insulin aspart (NovoLOG) pen 0-4 Units 0-4 Units Subcutaneous AT BEDTIME ??? insulin aspart (NovoLOG) pen 0-6 Units 0-6 Units Subcutaneous TID WC ??? insulin aspart (NovoLOG) pen 5 Units 5 Units Subcutaneous TID WC ??? insulin glargine (Lantus) pen 10 Units 10 Units Subcutaneous AT BEDTIME Current PRN Medications: Current Facility-Administered Medications Medication Dose Route Frequency ??? 0.9% NaCl injection 1-10 mL 1-10 mL Intracatheter PRN ??? dextrose 10 % IV bolus 12.5 g Intravenous PRN Or ??? dextrose 10 % IV bolus 25 g Intravenous PRN ??? glucagon (Glucagen) injection 1 mg 1 mg Subcutaneous PRN ??? glucose chew tablet 4 tablet 16 g Oral PRN ??? glucose chew tablet 4 tablet 16 g Oral PRN * Isaak An MD - 08/24/2022 5:49 AM CDT Images from the original note were not included. Internal Medicine Resident Progress Note Admission Date: 08/21/2022 Hospital Day: 3 Attending: Dr. Jansen Resident: Dr. An Code Status: Full Code Events since last progress note: UOP: 2.7L BS controlled BP improving. Was on 1L, saturating at 92%. Wean off. Hospital course summary: Gay Canales is a 31 year old female with PMH significant for Uncontrolled T2DM (a1c of 11), class 3 obesity, HTN, who was initially presented to a OSH after ingestion of 10 tabelets of norvasc (10mg), 10 tablets of lasix (20 mg) and 18 tabs of 325 mg iron. Poison control were notified and they recommended supportive care. Her labs at the time were pertinent for BOBBY with creatinine of 1.75, BNP of 3111. On admission here she was started on fluids and psych was consulted. Over the course of the day she suddenly became hypoxic noted to be saturating in the 80s and CXR revealed cardiomegaly with increased vascular congestion. ECHO done revealed EF of 60%, mild mitral regurgitation and normal pressures. She is currently being diuresed. Review of Systems Constitutional: Negative for chills, fever, malaise/fatigue and weight loss. HENT: Negative for hearing loss. Eyes: Negative for blurred vision. Respiratory: Negative for cough, hemoptysis, sputum production and shortness of breath. Cardiovascular: Negative for chest pain. Gastrointestinal: Negative for abdominal pain, heartburn, nausea and vomiting. Genitourinary: Negative for dysuria. Musculoskeletal: Negative for back pain and myalgias. Skin: Negative for itching and rash. Neurological: Negative for dizziness, tingling, tremors and headaches. Psychiatric/Behavioral: Positive for depression and suicidal ideas. Negative for hallucinations andsubstance abuse. The patient is nervous/anxious. The patient does not have insomnia. OBJECTIVE Unable to calculate weight change. Intake/Output Summary (Last 24 hours) at 08/24/2022 1149 Last data filed at 08/24/2022 1018 Gross per 24 hour Intake 1160 ml Output 3136 ml Net -1976 ml Temp (24hrs), Av.1 ??F (36.7 ??C), Min:97.2 ??F (36.2 ??C), Max:99.1 ??F (37.3 ??C) Patient Vitals for the past 24 hrs: Temp Pulse Resp BP 08/24/22 0714 98.6 ??F (37 ??C) 84 18 150/91 08/24/22 0601 99.1 ??F (37.3 ??C) 84 18 134/84 08/23/22 2312 98.1 ??F (36.7 ??C) 85 18 145/81 08/23/22 2003 97.6 ??F (36.4 ??C) 80 18 133/85 08/23/22 1503 97.2 ??F (36.2 ??C) 77 19 142/92 Physical Exam Constitutional: Appearance: Normal appearance. She is obese. HENT: Head: Normocephalic and atraumatic. Right Ear: External ear normal. Left Ear: External ear normal. Nose: Nose normal. Mouth/Throat: Mouth: Mucous membranes are moist. Pharynx: Oropharynx is clear. Eyes: Conjunctiva/sclera: Conjunctivae normal. Neck: Comments: JVD improving Cardiovascular: Rate and Rhythm: Normal rate and regular rhythm. Pulses: Normal pulses. Heart sounds: Normal heart sounds. Pulmonary: Effort: Pulmonary effort is normal. Breath sounds: Normal breath sounds. Abdominal: General: Bowel sounds are normal. There is distension. Palpations: Abdomen is soft. Comments: Trace edema noted on the flanks of the abdomen. Musculoskeletal: Cervical back: Neck supple. Right lower leg: Edema present. Left lower leg: Edema present. Comments: +1 lower extremity edema up to the knee Skin: General: Skin is dry. Neurological: Mental Status: She is alert and oriented to person, place, and time. Psychiatric: Comments: Flat mood MAR reviewed: yes Antimicrobial day: None Labs: I have reviewed results from the last 24 hours and are remarkable for the following: K: 3.5 Mag 1.7 Hba1c: 11.7 Micro: None Imaging: I have reviewed imaging studies from the last 24 hours and is summarized below: Chest xray 08/22 Moderate cardiomegaly and moderate right pleural effusion are similar to the previous examination. There is diffuse thickening of interstitial markings. No pneumothorax. chest xray 08/21 Cardiomegaly and diffuse b/l pulmonary congestion noted. Assessment/Clinical Reasoning/Plan #Heart Failure with Preserved Ejection Fraction Patient developed worsening SOB in the setting of IV fluids. -Etiology of HFpEF likely prolonged period of uncontrolled HTN. Class 3 obesity compounding her HFpEF. -On physical examination she is volume up -CXR reveals Cardiomegaly and diffuse b/l pulmonary congestion with a possible pleural effusion -Will continue IV lasix 40mg 08/24 considering good response, and still requiring some oxygen and pedal edema. - Possibly transition to PO on 08/25 and DC to IP U,. -Coreg 12.5 BID -Maintain Mg>2 and K>4 -Daily weights -Strict input and output #Acute Hypoxic Respiratory failure - improving -secondary to above -maintain spO2 >92% -continuous pulse oximetry - wean off oxygen #Acute Kidney Injury - improving Probable cause prerenal in the setting of HFpEf -Should improve with the improvement of heart function. -avoid hypotension and nephrotoxic agents. #Hypertension Home meds include norvasc 10 mg and coreg 12.5 mg. -Restarting home meds. #Uncontrolled Type 2 DM -A1c of 11 on 08/22/2022 -Will increase lantus dose to 10 units for basal control and start 5 units novolog for bolus. -Maintain blood glucose b/w 110-180 in the patient setting. #Intentional Overdose -Poison control consulted and recommend supportive care and cmp. -Psych consulted and recs appreciated, rec IP admission after medical stabilization. - started on fluoxetine 20mg Barriers to Discharge - oxygenation requirements and IV diuresis Dispo: IP BHU, likely tomorrow Diet: Cardiac/Diabetic DVT Prophylaxis: Heparin D/w IM Attending, Dr. Inderjit An MD PGY3 Resident Due to medical issues in the assessment and plan, continued hospitalization will be required. Associated attestation - Jimmy Jansen MD - 08/24/2022 1:01 PM CDT I have personally seen, examined, and been fully involved in the management of Gay Canales. I confirm the assessment and plan as written by Dr. An on 08/24/2022. In addition, I find: Appears to have diastolic heart failure due to uncontrolled hypertension. Continue diuresis for now. Jimmy Jansen MD 08/24/2022 1:01 PM * Evelia Soto LPN - 08/24/2022 4:06 AM CDT Shift Summary: Pt rested quietly this shift. No concerns voiced. Pt denies any SI. Pt did have [employer] for dinner that family brought. Pt tolerated well. Sitter at bedside. Will continue to monitor. * Cinthya Parekh RN - 08/23/2022 3:40 PM CDT Friday Summary Note Anticipated level of care at discharge: Home, Psychiatric Facility Discharge Plan: Patient not medically cleared for discharge. Currently needing O2 and is RA at baseline. 1:1 sitter continues. Psych following. Patient to DC to [facility]. Basic Needs Assessment (BNA) Score: 4 Anticipated Discharge Date: Anticipated Discharge Date: 08/22/22 Patient/Family provided with list of resources? Unknown Preferred Provider / High Quality Network List given?: Unknown Reason for provider choice: Unknown Transportation at Discharge: Family Follow Up Appointment: not a this time Transportation to MD:Family Equipment at Home: Equipment at Home: None Hunger Screening: Within the past 12 months, you worried that your food would run out before you got the money to buymore.: Never true Within the past 12 months, the food you bought just didn't last and you didn't have money to get more.: Never true [employer] Resources Provided: Not offered to the patient Medication affordability concerns: No Cinthya Parekh RN [id number] 08/23/2022 * Vanessa Castillo, [employer]SAVINGS TELLER - 08/23/2022 1:45 PM CDT Psychiatry Consult Progress Note Name: Gay Valencia Parker Admit Date: 08/21/2022 : 1990 Evaluation Date: 08/23/2022 CSN #: [id number] Room #: 317 Attending Physician: No admitting provider for patient encounter. Subjective Assessment: Awake and alert in her room Talking on phone to support person. She is pleasant and cooperative. Denies current suicidal ideations. Gay Canales's current suicide risk level is medium Diagnosis: Severe recurrent major 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 psychotic features (CMS/HCC) F33.2, Intentional overdose of drug in tablet form (CMS/HCC) T50.902A, PTSD (post-traumatic stress disorder) F43.10 ?? Treatment Plan: Please leave 1:1 sitter for suicide precautions in place Please plan to transfer to IP [facility] when medically clear. Transfer to psychiatry: YES Mental Status Exam: General Appearance: In psych safe scrubs Behaviors: Cooperative Eye Contact: Good Mood: Depressed and Anxious Affect: Reactive Speech: Clear Motor Activity: Ambulates independently Flow of Thought: Logical Thought Content: Delusions: Not present Hallucinations: Not present Suicidality: Denies Homicidality: Denies Preoccupations: not present Obsessions: not present Sensorium/Memory: Alert and Oriented x 3 Insight/Judgement: Improving Data: Sleep: Good Appetite: Diet for the past 24 hrs: % Meal Taken 08/22/22 1444 45 % 08/22/22 1917 80 % 08/23/22 0945 0 % 08/23/22 1233 0 % Vital Signs: Patient Vitals for the past 24 hrs: BP Temp Temp src Pulse Resp SpO2 08/23/22 1130 -- -- -- 78 -- 92 % 08/23/22 1050 130/74 97.8 ??F (36.6 ??C) Oral 77 17 90 % 08/23/22 0718 141/87 98.4 ??F (36.9 ??C) Oral 83 19 96 % 08/22/22 2255 148/91 97.9 ??F (36.6 ??C) Oral 78 19 95 % 08/22/222000 162/99 98 ??F (36.7 ??C) -- 90 18 94 % 08/22/22 1855 (!) 171/105 -- -- 88 -- -- 08/22/22 1549 148/90 97.9 ??F (36.6 ??C) Oral 88 18 93 % Admission weight: Weight: 283 lb 14.4 oz (08/21/22812) Most recent weight: Weight: 283 lb 14.4 oz (08/21/22812) Recent Labs: Recent Labs Component Name 08/23/2231308/22/2231608/21/2247 SODIUM 143 144 146* POTASSIUM 3.5 3.5 2.9* CHLORIDE 109* 109* 108* CO2 28 26 28 BUN 6* 7 7 CREATININE 1.37* 1.49* 1.62* GLUCOSE 157* 204* 180* CALCIUM 8.0* 8.1* 8.2* ALKPHOS - - 87 ALBUMIN 2.0* 2.0* 2.2* ALT - - 11 AST - - 5 TBIL - - 0.3 TPROT - - 5.5* PHOS 3.2 3.2 - Recent Labs Component Name 08/22/2231608/21/2246 WBC 9.6 11.7* HGB 8.1* 8.6* HCT 26.8* 28.6* PLTCOUNT 571* 584* No results for input(s): KUNHMCGYP2JR, VKAWWE7XY, COCAINE, ETHANOL in the last 17786 hours. Invalid input(s): CUZENUKQ8OI, CGHLVTKF6ZK, MAP8XMSH56, NYNNJESPCQ7ZA, GONWSQAWR8RA No results for input(s): HCGQUAL, HCGURINE in the last 37187 hours. No results for input(s): TSH in the last 76128 hours. No results for input(s): RPR in the last 74304 hours. No results for input(s): COLORUA, CLARITYUA, SPECGRAVUA, PHUA, PROTEINUA, BLOODUA, LEUKOCYTEUA, NITRITEUA, GLUCOSEUA, KETONEUA, BILIRUBINUA, UROBILINUA, REDSUBUA, WBCUAAUTO, RBCUAAUTO, EPITHUAAUTO, BACTUAAUTO, YEASTUAAUTO, SPERMUAAUTO, CASTUAAUTO, CRYSUAAUTO, MUCUSUAAUTO in the last 56718 hours. No results for input(s): VPA in the last 89871 hours. No results for input(s): LITHIUM in the last 73131 hours. No results for input(s): CARBAMAZEPIN in the last 98672 hours. Current Scheduled Medications: Current Facility-Administered Medications Medication Dose Route Frequency ??? 0.9% NaCl injection 3 mL 3 mL Intracatheter q8h ??? amLODIPine (Norvasc) tablet 10 mg 10 mg Oral QDAY ??? carvedilol (Coreg) tablet 12.5 mg 12.5 mg Oral BID WC ??? FLUoxetine (PROzac) capsule 20 mg 20 mg Oral QDAY ??? furosemide (Lasix) injection 40 mg 40 mg Intravenous QDAY ??? heparin injection 5,000 Units 5,000 Units Subcutaneous BID ??? insulin aspart (NovoLOG) pen 0-4 Units 0-4 Units Subcutaneous AT BEDTIME ??? insulin aspart (NovoLOG) pen 0-6 Units 0-6 Units Subcutaneous TID WC ??? insulin aspart (NovoLOG) pen 5 Units 5 Units Subcutaneous TID WC ??? insulin glargine (Lantus) pen 10 Units 10 Units Subcutaneous AT BEDTIME Current PRN Medications: Current Facility-Administered Medications Medication Dose Route Frequency ??? 0.9% NaCl injection 1-10 mL 1-10 mL Intracatheter PRN ??? dextrose 10 % IV bolus 12.5 g Intravenous PRN Or ??? dextrose 10 % IV bolus 25 g Intravenous PRN ??? glucagon (Glucagen) injection 1 mg 1 mg Subcutaneous PRN ??? glucose chew tablet 4 tablet 16 g Oral PRN ??? glucose chew tablet 4 tablet 16 g Oral PRN * Violet Busch, PT - 08/23/2022 11:42 AM CDT Physical Therapy Treatment Chart reviewed prior to treatment this date & communication with RN to inform that PT treatmentto be completed at this time. SUBJECTIVE: Pt found alert and agreeable to participate in PT session at this time. I'm doing okay. Pain: Pain Rating Score #: 0 OBJECTIVE: Cognition: Orientation Level: Oriented X4 Cognition: Follows Commands-Consistent;Attention/concentration-normal for age;Processing-Appropriate Participation: Active Participation Mobility: Bed mobility: Supine to Sit: Complete [place] Sit to Supine: Activity Does Not Occur Transfers: Sit to Stand: Supervision Stand to Sit: Supervision Gait: Distance Ambulated: 200 FEET (x2 with seated rest) Ambulation: Assistive Device: Gait Belt Ambulation: Level of Assistance: Stand By Assist;Supervision Ambulation: Gait Deviations: Mehreen - Decreased;Base of Support - Increased Vitals: Activity Tolerance: Requires seated rest breaks O2 L/M: 2 SpO2: 90% prior to mobility. 94% after 200 ft. 92% following second bout of ambulation Pulse: 78 (-81) Education: Refer to education activity button tab in Epic chart for education provided to patient/caregiver & response to education provided this date. In addition, patient was also educated on principles of energy conservation & pacing with activity, and pursed lip breathing. ASSESSMENT/RECOMMENDATIONS: Pt demonstrating improving OOB activity tolerance but continues to require 2LPM of supplemental O2 at rest and during activity. She is not on home O2 at baseline. Pt would benefit from ambulatory oximetry test with RT prior to DC when medically cleared. She will benefit from PT to improve above listed deficits in order to increase independence, decreased burden of care, and return to prior level of function. Upon completion of treatment, patient left up in recliner with LE's elevated with call light and phone within reach and sitter at bedside. All lines, monitors, IV's, equipment in place and intact pre and post visit. This pt is most appropriate for DC to home with daily assist when medically stable. Refer to flowsheet for additional details from treatment. RN, informed about today's treatment session. GOALS: Refer to care plan for goals. PLAN: Continue per current POC with skilled PT during acute care hospitalization to improve functional mobility, endurance, and safety in order to increase independence & progress toward goals as able. If this is the last physical therapy visit, this serves as the discharge summary. NAT Lazo Ascom# [id number] * Isaak An MD - 08/23/2022 5:36 AM CDT Images from the original note were not included. Internal Medicine Resident Progress Note Admission Date: 08/21/2022 Hospital Day: 2 Attending: Dr. Jansen Resident: Dr. An Code Status: Full Code Events since last progress note: UOP:800 cc renal panel: creatinine improving to 1.37 O2 sats: on 2L NC BP: improving Psych: recommends IP BH admission after medical stabilization. Pt stated being treated for PNA couple weeks ago but does not recall which ABX was given. Pt was a bit withdrawn and did not speak much. Hospital course summary: Gay Canales is a 31 year old female with PMH significant for Uncontrolled T2DM (a1c of 11), class 3 obesity, HTN, who was initially presented to a OSH after ingestion of 10 tabelets of norvasc (10mg), 10 tablets of lasix (20 mg) and 18 tabs of 325 mg iron. Poison control were notified and they recommended supportive care. Her labs at the time were pertinent for BOBBY with creatinine of 1.75, BNP of 3111. On admission here she was started on fluids and psych was consulted. Over the course of the day she suddenly became hypoxic noted to be saturating in the 80s and CXR revealed cardiomegaly with increased vascular congestion. ECHO done revealed EF of 60%, mild mitral regurgitation and normal pressures. She is currently being diuresed. Review of Systems Constitutional: Positive for malaise/fatigue. Negative for chills, fever and weight loss. HENT: Negative for hearing loss. Eyes: Negative for blurred vision. Respiratory: Positive for shortness of breath. Negative for cough, hemoptysis and sputum production. Cardiovascular: Negative for chest pain. Gastrointestinal: Negative for abdominal pain, heartburn, nausea and vomiting. Genitourinary: Negative for dysuria. Musculoskeletal: Negative for back pain and myalgias. Skin: Negative for itching and rash. Neurological: Negative for dizziness, tingling, tremors and headaches. Psychiatric/Behavioral: Positive for depression and suicidal ideas. Negative for hallucinations andsubstance abuse. The patient is nervous/anxious. The patient does not have insomnia. OBJECTIVE Unable to calculate weight change. Intake/Output Summary (Last 24 hours) at 08/23/2022 1150 Last data filed at 08/23/2022 0925 Gross per 24 hour Intake 1500 ml Output 1300 ml Net 200 ml Temp (24hrs), Av ??F (36.7 ??C), Min:97.8 ??F (36.6 ??C), Max:98.4 ??F (36.9 ??C) Patient Vitals for the past 24 hrs: Temp Pulse Resp BP 08/23/22 1130 -- 78 -- -- 08/23/22 1050 97.8 ??F (36.6 ??C) 77 17 130/74 08/23/22 0718 98.4 ??F (36.9 ??C) 83 19 141/87 08/22/22 2255 97.9 ??F (36.6 ??C) 78 19 148/91 08/22/22 2001 98 ??F (36.7 ??C) 90 18 162/99 08/22/22 1855 -- 88 -- (!) 171/105 08/22/22 1549 97.9 ??F (36.6 ??C) 88 18 148/90 Physical Exam Constitutional: Appearance: Normal appearance. She is obese. HENT: Head: Normocephalic and atraumatic. Right Ear: External ear normal. Left Ear: External ear normal. Nose: Nose normal. Mouth/Throat: Mouth: Mucous membranes are dry. Pharynx: Oropharynx is clear. Eyes: Conjunctiva/sclera: Conjunctivae normal. Neck: Comments: JVD up to the mandible Cardiovascular: Rate and Rhythm: Normal rate and regular rhythm. Pulses: Normal pulses. Heart sounds: Normal heart sounds. Pulmonary: Effort: Pulmonary effort is normal. Breath sounds: Normal breath sounds. Abdominal: General: Bowel sounds are normal. There is distension. Palpations: Abdomen is soft. Comments: Trace edema noted on the flanks of the abdomen. Musculoskeletal: Cervical back: Neck supple. Right lower leg: Edema present. Left lower leg: Edema present. Comments: +1 lower extremity edema up to the knee Skin: General: Skin is dry. Neurological: Mental Status: She is alert and oriented to person, place, and time. Psychiatric: Comments: Flat mood MAR reviewed: yes Antimicrobial day: None Labs: I have reviewed results from the last 24 hours and are remarkable for the following: K: 3.5 Mag 1.7 Hba1c: 11.7 Micro: None Imaging: I have reviewed imaging studies from the last 24 hours and is summarized below: Chest xray 08/22 Moderate cardiomegaly and moderate right pleural effusion are similar to the previous examination. There is diffuse thickening of interstitial markings. No pneumothorax. chest xray 08/21 Cardiomegaly and diffuse b/l pulmonary congestion noted. Assessment/Clinical Reasoning/Plan #Heart Failure with Preserved Ejection Fraction Patient developed worsening SOB in the setting of IV fluids. -Etiology of HFpEF likely prolonged period of uncontrolled HTN. Class 3 obesity compounding her HFpEF. -On physical examination she is volume up -CXR reveals Cardiomegaly and diffuse b/l pulmonary congestion with a possible pleural effusion -Lasix 40 mg IV qday.Given that she is not lasix naive will monitor today for UOP. Access volume status, along with o2 requirements and change accordingly. Conitnue lasix for 08/23, possibly transition on 08/24 -Coreg 12.5 BID -Maintain Mg>2 and K>4 -Daily weights -Strict input and output #Acute Hypoxic Respiratory failure -secondary to above -maintain spO2 >92% -continuous pulse oximetry - wean off oxygen #Acute Kidney Injury - improving Probable cause prerenal in the setting of HFpEf -Should improve with the improvement of heart function. -avoid hypotension and nephrotoxic agents. #Hypertension Home meds include norvasc 10 mg and coreg 12.5 mg. -Restarting home meds. #Uncontrolled Type 2 DM -A1c of 11 on 08/22/2022 -Home meds include 10 units of lantus and humlog at home. -Will increase lantus dose to 10 units for basal control and start 5 units novolog for bolus. -Maintain blood glucose b/w 110-180 in the patient setting. #Intentional Overdose -Poison control consulted and recommend supportive care and cmp. -Psych consulted and recs appreciated, rec IP admission after medical stabilization. - started on fluoxetine 20mg Barriers to Discharge - oxygenation requirements and IV diuresis Dispo: TBD pending psych evaluation. Diet: Cardiac/Diabetic DVT Prophylaxis: Heparin D/w IM Attending, Dr. Inderjit An MD PGY3 Resident Due to medical issues in the assessment and plan, continued hospitalization will be required. Associated attestation - Jimmy Jansen MD - 08/23/2022 6:43 PM CDT I have personally seen, examined, and been fully involved in the management of Gay Canales. I confirm the assessment and plan as written by Dr. An on 08/23/2022. Jimmy Jansen MD 08/23/2022 6:43 PM * Lulú Ku, RN - 08/23/2022 12:21 AM CDT Problem: Suicide Risk Goal: Patient will be free of self-inflicted injury and suicide risk during hospitalization Outcome: Progressing Problem: Pain/Discomfort Goal: Patient exhibits [...] in the flowsheet documentation) Outcome: Progressing Problem: Glycemia Imbalance Goal: Clinical indication of glycemia balance is achieved Outcome: Progressing Flowsheets (Taken 08/22/20222042) Glucose Bedside (mg/dL): 229 mg/dL * Hiral Leo RN - 08/22/2022 7:56 PM CDT Patient denied suicidal thoughts/ideation for this shift. Denied pain or discomfort. Blood pressures elevated at times, medications given per MAR. Adequate intake and output. Blood sugars elevated, insulin provided per orders. Suicidal and elopement precautions in place and sitter at the bedside for entirety of shift. Tolerated new fluoxetine medication today. Problem: Suicide Risk Goal: Patient will be free of self-inflicted injury and suicide risk during hospitalization Outcome: Progressing Problem: ELOPEMENT/ABDUCTION Goal: Risk for elopement &/or abduction during hospitalization is minimized Outcome: Progressing Problem: Pain/Discomfort Goal: Patient exhibits reduced pain/discomfort as evidenced by pain scores Outcome: Progressing Goal: Patient uses pharmacological and non-pharmacological pain management strategies. Outcome: Progressing Goal: Patient verbalizes acceptable level of pain relief and ability to engage in desired activity. Outcome: Progressing Problem: Mobility Goal: Ped LTG - Patient will ambulate 150 feet independently. Outcome: Progressing * Violet Busch, PT - 08/22/2022 10:14 AM CDT Physical Therapy Evaluation. Please refer to Filed Flowsheet for further details. PT orders received, chart reviewed for diagnosis and medical systems review. Admittin. Intentional overdose, initial encounter ([facility]) SUBJECTIVE: Yeah, I live with my sister Nursing consents for PT. Patient found alert and agreeable to participate in therapy. Home Situation: Type of Residence: Private Residence Lives with:: Sister Steps to Enter: 1 Home Structure: One Story Equipment at Home: None Prior Level of Functioning: Mobility: Ambulate-In Community;Ambulate-In Home Fallen Within 6 Mos: No Have Help at Home?: No help at home now Activity at Home: Active Pain Assessment: Pain Rating Score #: 0 Patient/family stated goal: to return home OBJECTIVE: Cognition: Cognition: Follows Commands-Consistent;Attention/concentration-normal for age Level of Consciousness-Adult: Alert Participation: Active Participation Strength: BLE WNL Posture: Normal Balance: Seated: Normal Standing: Good - Bed Mobility: Supine to Sit: Complete [place] Sit to Supine: Activity Does Not Occur Transfers: Sit to Stand: Supervision Stand to Sit: Supervision Mobility: Distance Ambulated: 100 FEET Ambulation: Assistive Device: Gait Belt Ambulation: Level of Assistance: Supervision Ambulation: Gait Deviations: Mehreen - Decreased;Base of Support - Increased;Lateral trunk lean/sway Activity Tolerance/Oxygen Requirements and Vitals: Activity Tolerance: Tolerates ADLs without rest breaks On 2LPM SpO2: 91 % Pulse: 91 Resp: 18 BP: (!) 172/103 (prior to ambulation) Pt educated in PT plan of care, fall precautions, and benefits of OOB activity. ASSESSMENT: Pt found alert and agreeable to PT evaluation. Mod I for bed mobility and supervision for transfers and ambulation of 100 ft on 2LPM. Pt noted to have SPO2 of 92% prior to mobility. Seated at eob following ambulation. Satting at 86%. Instructed in PLB. Slowly increasing to 91%. Pt then ambulating additional 15 ft to recliner. Functioning near reported baseline for mobility with endurance and O2 needs being primary barriers.They will benefit from PT to improve above listed deficits in order to increase independence, decreased burden of care, and return to prior level of function. Following session, the patient is up in the recliner with call light and phone within reach. All lines, monitors, IV's, equipment in place and intact pre and post visit. Nurse informed about today's treatment session. Refer to Plan of Care for PT goals. Please refer to Filed Flowsheet PT Evaluation for further details. RECOMMENDATIONS/PLAN: Home with daily assist when medically cleared. May benefit from ambulatory oximetry prior to DC to assess possible new O2 needs. If this is the last PT visit, this note serves as the discharge summary. NAT Lazo x [phone] * Anabel Agarwal, OT - 08/22/2022 10:03 AM CDT Occupational Therapy Initial Evaluation Orders received. Chart reviewed for history of presenting illness, diagnosis, and medical history. Nursing consented for OT. Explained purpose of OT and patient consented to participate in therapy. Admitted; 1. Intentional overdose, initial encounter ([facility]) PPE worn by staff: mask - surgical;gloves;face shield. Precautions: Safety / Falls / Cognition SUBJECTIVE: Im doing alright today Psychosocial: Patient Behaviors: Calm;Cooperative Pt's goal for therapy: ADL's, Self Cares, Falls, Safety training Occupational Profile/PLOF: Type of Residence: Private Residence Lives with:: Sister Home Structure: One Story Steps to Enter: 1 Primary Bedroom: First Floor Primary Bathroom: First Floor Bathroom : Tub/Shower Combo Equipment at Home: None Mobility: Ambulate-In Community;Ambulate-In Home ;Independent Fallen Within 6 Mos: No Have Help at Home?: No help at home now Oxygen at Home: No Activity at Home: Active Vision: Corrected with glasses Cognition: Orientation Level: Oriented X4 Level of Consciousness-Adult: Alert Cognition: Follows Commands-Consistent;Attention/concentration-normal for age;Processing-Appropriate Pain Assessment: Pain Rating Score #: 0 RUE Assessment: AROM - Right Upper Extremity: Within Functional Limits Strength - Right Upper Extremity: Within Functional Limits Recycle Worker Strength: Recycle Worker Strength - Right Upper Extremity: WFL LUE Assessment: AROM - Left Upper Extremity: Within Functional Limits Strength - Left Upper Extremity: Within Functional Limits Recycle Worker Strength: Recycle Worker Strength - Left Upper Extremity: WFL: Basic ADL's: (Through clinical assessment, observation and professional judgement) Oral Facial Hygiene: Complete [place] (wash face and brushed teeth while standing at the sink) Bathing: Activity Does Not Occur Upper Body Dressing: Complete [place] (anticipated) Lower Body Dressing: Complete [place] (anticipated) Toileting: Complete [place] (anticiapted) Functional Mobility: Bed Mobility: Supine to Sit: Complete [place] Sit to Supine: Complete [place] Transfers: Sit to Stand: Complete [place] Stand to Sit: Complete [place] Vitals: Activity Tolerance: Requires rest breaks SpO2: (!) 86 % (-92; throughout session. Pt was asymptomatic. RN aware) Pulse: (90s throughout session) BP: (!) 163/107 ASSESSMENT: The patient was supine in bed with HOB elevated upon therapist entering room to complete OT evaluation. Patient agreeable to participate. Patient able to complete all transfers and ADLs independentlywithout any losses of balance or complaints of fatigue. Pt SpO2 dropped to 86% with ambulation but was asymptomatic. PT to further address functional activity tolerance with ambulation. Patient reports functioning at baseline level with ADLs. Patient reports no concerns regarding return home and has no further questions. Will complete OT orders at this time.. All lines, monitors, IV's, equipment in place and intact pre and post visit. RN, notified of patient's performance/location end of session. Refer to filed flow sheet for further details. RECOMMENDATIONS/PLAN: Patient functioning at baseline level and does not require further skilled acute care OT. Will d/c orders at this time. Please re-order if there is a change in function or status. OT Discharge Recommendations: Home;Daily Assist;Discontinue Acute Care OT If this is the last Occupational Therapy visit, this serves as the discharge summary. [id number] * Rosita Garcia, RD/LD - 08/22/2022 8:47 AM CDT CLINICAL NUTRITION BMI NOTE Height: 5' 7 (170.2 cm) Weight: 283 lb 14.4 oz (128.8 kg) Body mass index is 44.47 kg/m??. BMI Range: Morbidly Obese Class 3 Currently, patient is receiving a Current diet order: Regular. Change to 60g Carb Consistent diet 2/2 DM hx. Patient would benefit from outpatient nutrition counseling & follow up at discharge. To see an outpatient dietitian a provider will need to enter an order for MNT (Medical Nutrition Therapy) (Ambulatory [id number] in [facility]). MNT is a covered Medicare benefit for diabetes and renal disease. Other insurance coverage varies, patients should check with their insurance providers to verify coverage. Rosita Vyas RD/LD 08/22/2022 8:47 AM Ascom [id number] * Marilynn Berrios RN - 08/22/2022 6:44 AM CDT Problem: Suicide Risk Goal: Patient will be free of self-inflicted injury and suicide risk during hospitalization Outcome: Progressing Problem: ELOPEMENT/ABDUCTION Goal: Risk for elopement &/or abduction during hospitalization is minimized Outcome: Progressing Problem: Pain/Discomfort Goal: Patient exhibits reduced pain/discomfort as evidenced by pain scores Outcome: Progressing Goal: Patient uses pharmacological and non-pharmacological pain management strategies. Outcome: Progressing Goal: Patient verbalizes acceptable level of pain relief and ability to engage in desired activity. Outcome: Progressing * Marilynn Berrios RN - 08/22/2022 6:40 AM CDT Shift summary: Patient a&o x 4. Patient BP elevated, other VSS. No complaints of pain. Patient denied any suicidal ideation thoughts throughout shift. All medications administered without complication. SI precautions and bedside sitter present during shift. Patient resting in bed, bed lowered and locked. JIMMIE Subramanian * Michael Joe MD - 08/22/2022 5:52 AM CDT Images from the original note were not included. Internal Medicine Resident Progress Note Admission Date: 08/21/2022 Hospital Day: 1 Attending: Dr. Jansen Resident: Dr. Joe Code Status: Full Code Events since last progress note: No acute events overnight. -reports some fatigue. Afebrile. Hypertensive with SBP b/w 159-165 and DBP b/w 86-94. Blood glucose 204. 24 hour UOP 640 [facility] course summary: Gay Canales is a 31 year old female with PMH significant for Uncontrolled T2DM (a1c of 11), class 3 obesity, HTN, who was initially presented to a OSH after ingestion of 10 tabelets of norvasc (10mg), 10 tablets of lasix (20 mg) and 18 tabs of 325 mg iron. Poison control were notified and they recommended supportive care. Her labs at the time were pertinent for BOBBY with creatinine of 1.75, BNP of 3111. On admission here she was started on fluids and psych was consulted. Over the course of the day she suddenly became hypoxic noted to be saturating in the 80s and CXR revealed cardiomegaly with increased vascular congestion. ECHO done revealed EF of 60%, mild mitral regurgitation and normal pressures. She is currently being diuresed. Review of Systems Constitutional: Positive for malaise/fatigue. Negative for chills, fever and weight loss. HENT: Negative for hearing loss. Eyes: Negative for blurred vision. Respiratory: Positive for shortness of breath. Negative for cough, hemoptysis and sputum production. Cardiovascular: Negative for chest pain. Gastrointestinal: Negative for abdominal pain, heartburn, nausea and vomiting. Genitourinary: Negative for dysuria. Musculoskeletal: Negative for back pain and myalgias. Skin: Negative for itching and rash. Neurological: Negative for dizziness, tingling, tremors and headaches. Psychiatric/Behavioral: Positive for depression and suicidal ideas. Negative for hallucinations andsubstance abuse. The patient is nervous/anxious. The patient does not have insomnia. OBJECTIVE Unable to calculate weight change. Intake/Output Summary (Last 24 hours) at 08/22/2022 0552 Last data filed at 08/21/2022 1500 Gross per 24 hour Intake 640 ml Output -- Net 640 ml Temp (24hrs), Av.7 ??F (37.1 ??C), Min:98.3 ??F (36.8 ??C), Max:98.8 ??F (37.1 ??C) Patient Vitals for the past 24 hrs: Temp Pulse Resp BP 08/22/22 0526 98.8 ??F (37.1 ??C) 91 20 159/94 08/21/22 2006 98.3 ??F (36.8 ??C) 96 18 165/96 08/21/22 1439 98.8 ??F (37.1 ??C) 91 18 147/86 08/21/22 0813 98.8 ??F (37.1 ??C) 93 16 163/95 Physical Exam Constitutional: Appearance: Normal appearance. She is obese. HENT: Head: Normocephalic and atraumatic. Right Ear: External ear normal. Left Ear: External ear normal. Nose: Nose normal. Mouth/Throat: Mouth: Mucous membranes are dry. Pharynx: Oropharynx is clear. Eyes: Conjunctiva/sclera: Conjunctivae normal. Neck: Comments: JVD up to the mandible Cardiovascular: Rate and Rhythm: Normal rate and regular rhythm. Pulses: Normal pulses. Heart sounds: Normal heart sounds. Pulmonary: Effort: Pulmonary effort is normal. Breath sounds: Normal breath sounds. Abdominal: General: Bowel sounds are normal. There is distension. Palpations: Abdomen is soft. Comments: Trace edema noted on the flanks of the abdomen. Musculoskeletal: Cervical back: Neck supple. Right lower leg: Edema present. Left lower leg: Edema present. Comments: +2 lower extremity edema up to the knee Skin: General: Skin is dry. Neurological: Mental Status: She is alert and oriented to person, place, and time. Psychiatric: Comments: Flat mood MAR reviewed: yes Antimicrobial day: None Labs: I have reviewed results from the last 24 hours and are remarkable for the following: Labs pertinent for K of 3.5, BUN/Cr of 7/1.49 from 71.62, Mag of 1.8, A1c of 11.7, hb of 8.1 Micro: None Imaging: I have reviewed imaging studies from the last 24 hours and is summarized below: Cardiomegaly and diffuse b/l pulmonary congestion noted. Assessment/Clinical Reasoning/Plan #Heart Failure with Preserved Ejection Fraction Patient developed worsening SOB in the setting of IV fluids. -Etiology of HFpEF likely prolonged period of uncontrolled HTN. Class 3 obesity compounding her HFpEF. -On physical examination she is volume up -CXR reveals Cardiomegaly and diffuse b/l pulmonary congestion with a possible pleural effusion -Lasix 40 mg IV qday.Given that she is not lasix naive will monitor today for UOP. Access volume status, along with o2 requirements and change accordingly. -Coreg 12.5 BID -Maintain Mg>2 and K>4 -Daily weights -Strict input and output #Acute Hypoxic Respiratory failure -secondary to above -maintain spO2 >92% -continuous pulse oximetry #Acute Kidney Injury Probable cause prerenal in the setting of HFpEf -Should improve with the improvement of heart function. -avoid hypotension and nephrotoxic agents. #Hypertension Home meds include norvasc 10 mg and coreg 12.5 mg. -Restarting home meds. #Uncontrolled Type 2 DM -A1c of 11 on 08/22/2022 -Home meds include 10 units of lantus and humlog at home. -Will increase lantus dose to 10 units for basal control and start 5 units novolog for bolus. -Maintain blood glucose b/w 110-180 in the patient setting. #Intentional Overdose -Poison control consulted and recommend supportive care and cmp. -Psych consulted and recs appreciated Barriers to Discharge - oxygenation requirements and IV diuresis Dispo: TBD pending psych evaluation. Diet: Cardiac/Diabetic DVT Prophylaxis: Heparin D/w IM Attending, Dr. Inderjit Joe MD PGY-2 Internal Medicine [facility] Due to medical issues in the assessment and plan, continued hospitalization will be required. Associated attestation - Jimmy Jansen MD - 08/22/2022 2:11 PM CDT I have personally seen, examined, and been fully involved in the management of Gay Canales. I confirm the assessment and plan as written by Dr. Joe on 08/22/2022. In addition, I find: Seems to have responded well to IV Lasix. Her CXR showed marked infiltrates throughout her lungs. Will repeat; if cardiogenic pulmonary edemawould expect it would be resolved by now. The patient says she was recently treated for pneumonia (we do not have the records); this could besequelae of this. Jimmy Jansen MD 08/22/2022 2:05 PM * Hiral Leo RN - 08/21/2022 5:28 PM CDT Patient denied thoughts of suicidal ideation for this RN during this shift. Denies pain or discomfort. ECHO, Chest Xray, EKG all provided. Vital signs stable, blood pressure slightly elevated. Familyat bedside for much of the shift. Suicidal precautions in place all shift. Sitter at bedside. Problem: Suicide Risk Goal: Patient will be free of self-inflicted injury and suicide risk during hospitalization Outcome: Progressing Problem: ELOPEMENT/ABDUCTION Goal: Risk for elopement &/or abduction during hospitalization is minimized Outcome: Progressing * Riley Sierra - 08/21/2022 4:53 PM CDT Echo completed * Marnie Kaur MD - 08/21/2022 3:59 PM CDT Addendum to H&P: Patient was requiring 2 L of oxygen, chest x-ray was done that showed Diffuse pulmonary infiltrates, right greater than left with cardiomegaly and pulmonary vascular congestion, patient however did not mention any heart failure history. Ordered echo Discontinued IV fluids Monitor and titrate oxygen as needed, although she is maintaining saturation comfortably with no respiratory distress but if her status worsens we can try some IV Lasix but will hold that for now. Marnie Kaur MD PGY3 internal medicine * Tyron Jacob, PharmD - 08/21/2022 12:34 PM CDT Pharmacist Initiated Admission Medication History Informant: Chart Review;Outside Meds/HIE Pharmacy: [facility] List Revisions: Medications Added Amlodipine Carvedilol Iron sulfate Humalog Furosemide Medications Removed Metformin This note indicates: Input most accurate/up-to-date outpatient pharmacy information Checked for pertinent drug-drug interactions Immunization records updated Updated home medication record Please note that this only serves as an updated medication list and medicine teams should continue to manage the patient as deemed most appropriate. If any questions about medication list arise please do not hesitate to contact the pharmacy dept ([id number]). Thank you. Eliezer RondonD Ext. [phone] Up-To-Date [facility] Home Medication List Prior to Admission Medications Prescriptions Last Dose Informant Patient Reported? Taking? FeroSul 325 (65 Fe) MG tablet Yes No Sig: Take 325 mg by mouth daily with breakfast amLODIPine (Norvasc) 10 MG tablet Yes No Sig: Take 10 mg by mouth once daily carvedilol (Coreg) 12.5 MG tablet Yes No Sig: Take 12.5 mg by mouth 2 times daily furosemide (Lasix) 20 MG tablet Yes No Sig: Take 20 mg by mouth once daily insulin glargine (Lantus/Semglee) 100 units/ml injection Yes No Sig: Inject 10 Units subcutaneously at bedtime insulin lispro (HumaLOG) 100 UNIT/ML vial Yes No Sig: Inject 5 Units subcutaneously 3 times daily with meals levoFLOXacin (Levaquin) 750 MG tablet Yes No Sig: Take 750 mg by mouth once daily Facility-Administered Medications: None Current Inpatient Medication Orders: Current Facility-Administered Medications Medication 0.9% NaCl injection 3 mL And 0.9% NaCl injection 1-10 mL dextrose 10 % IV bolus Or dextrose 10 % IV bolus glucagon (Glucagen) injection 1 mg glucose chew tablet 4 tablet heparin injection 5,000 Units insulin aspart (NovoLOG) pen 0-4 Units insulin aspart (NovoLOG) pen 0-6 Units insulin glargine (Lantus) pen 5 Units insulin glargine (Lantus) pen 5 Units lactated ringers infusion lactated ringers IV bolus potassium chloride ER (Klor-Con M) tablet 40 mEq * Cinthya Parekh RN - 08/21/2022 9:23 AM CDT A Chart Review has been conducted by Case Management. Anticipated level of care at discharge: Home, Psychiatric Facility Discharge Plan: I did not call or meet with patient at this time. Patient currently under SI precautions and a central intake order is in place. From notes, patient is A&Ox4 on RA and from home. Lives with sister. No sister #. Has no insurance and no PCP. [place] was emailed for medicaid application but no [facility] referral placed due to the circumstances. CM following. Since this assessment, patient has been found to have [facility] Medicaid and does not need [place] assistance. This insurance has transportation benefits if patient needs. Basic Needs Assessment (BNA) Score: 4 Anticipated Discharge Date: 08/22/22 PCP: No primary care provider on file. Per nursing assessment. There is a diagnosis of intentional overdose with a central intake order. Notes not complete. CM following for details. Transportation at discharge: Family Transportation (who): pt has no insurance which means no transportation benefits. Updated. She has [facility] which gives transportation benefits. Equipment Operating Engineer/Support: Equipment Operating Engineer/Support Person - Relationship:: Mother/Suellen Resendiz Equipment Operating Engineer person: Equipment Operating Engineer/Support Person Contact #: [phone] Home/Functional Status: Functional and Cognitive Status Is person deaf or have serious hearing difficulty?: No Is person blind or have serious difficulty seeing?: No Does person have serious difficulty walking/climbing stairs?: No Does person have difficulty dressing/bathing?: No Does person have difficulty doing errands alone?: No Does person have difficulty concentrating/remembering/making decisions?: No Equipment with patient: None Assistive Devices: None ?. Will continue to follow. For any questions or needs please contact: Structural Technician Name/Phone number: Cinthya Parekh RN [phone] * Yessica Jansen RN - 08/21/2022 8:50 AM CDT Attempted to call patient's mother to get pt's medication list from sister, whom patient lives with. Pt does not have her sister's phone number memorized. No answer by patient's mother. documented in this encounter H&P Notes * Marnie Kaur MD - 08/21/2022 9:08 AM CDT Images from the original note were not included. General Internal Medicine History and Physical Patient Name: Gay Canales (31 year old) Admission Date: 08/21/2022 Room Number: 317 Attending: Sawyer Guthrie MD Resident: Marnie Kaur MD Code Status: Full Code Chief complaint: Intentional medication overdose History of Present Illness: History was obtained from the patient and the medical chart. Gay Canales is a 31 year old female w/PMHx significant for type 2 diabetes and mellitus and hypertension was transferred from outside hospital where patient presented with intentional ingestion of20 mg Lasix tablet 10 mg amlodipine tablets and 325 mg of iron tablets approximately 18 each. Poison controlled was notified and they recommended supportive care. Her cbc in previous hospitalization showed hemoglobin of 9.9, lactic acid 0.9, BNP of 3111, mild BOBBY with creatinine of 1.75, hypokalemia. Over here Patient is hemodynamically stable, denies any active complaints. Was waiting 1 L of oxygen for comfort, maintaining saturation greater than 95%. Labs over here showed hypokalemia, hyperglycemia and hypernatremia and creatinine of 1.62 . Patientis started on IV fluids and psychiatry is consulted. Poison Control will continue to follow. Review of Systems Constitutional: Negative for chills and fever. HENT: Negative for hearing loss and tinnitus. Eyes: Negative for blurred vision, double vision and photophobia. Respiratory: Negative for cough and hemoptysis. Cardiovascular: Negative for chest pain and palpitations. Gastrointestinal: Negative for heartburn, nausea and vomiting. Genitourinary: Negative for dysuria and urgency. Musculoskeletal: Negative for myalgias and neck pain. Skin: Negative for rash. Neurological: Negative for dizziness, tingling and headaches. Psychiatric/Behavioral: Negative for depression and suicidal ideas. History: History updated? yes Past Medical History: Diagnosis Date ??? Type 2 diabetes mellitus without complications (CMS/HCC) Surgical history: No surgery in the past Family History Problem Relation Name Age of Onset ??? Diabetes - Type 2 Father ??? Diabetes - Type 2 Paternal Grandmother Social History Occupational History ??? Not on file Tobacco Use ??? Smoking status: Never Smoker ??? Smokeless tobacco: Never Used Vaping Use ??? Vaping Use: Never used Substance and Sexual Activity ??? Alcohol use: Never ??? Drug use: Never ??? Sexual activity: Not on file Allergies to Medications and Reactions: No Known Allergies Home Medications: No current facility-administered medications on file prior to encounter. Current Outpatient Medications on File Prior to Encounter Medication Sig Dispense Refill ??? blood glucose monitoring (Safe N ClearENSIA CONTOUR MONITOR) kit Use 1 Each. for blood glucose monitoring. 1 meter 1 ??? glucose blood (ASCENSIA CONTOUR TEST STRIP) strip Use 1 Strip. For blood glucose monitoring 2-4times/day. 100 11 ??? metformin ER 24hr (GLUCOPHAGE XR) 500MG tablet Take 1000 mg by mouth daily with dinner. ??? metformin ER 24hr (GLUCOPHAGE XR) 500MG tablet Take by mouth daily with dinner. 4 tablets 120 5 ??? MICROLET MISC Use. Use for blood glucose monitoring 2-4 times/day. 100 11 Home medications reconciled? yes Objective: Vitals Temp: [98.8 ??F (37.1 ??C)] 98.8 ??F (37.1 ??C) Pulse: [93] 93 Resp: [16] 16 BP: (163)/(95) 163/95 I/Os No intake or output data in the 24 hours ending 08/21/22 1150 Physical Exam Constitutional: Appearance: Normal appearance. Cardiovascular: Rate and Rhythm: Normal rate and regular rhythm. Pulses: Normal pulses. Heart sounds: Normal heart sounds. Pulmonary: Effort: Pulmonary effort is normal. Breath sounds: Normal breath sounds. Abdominal: General: Bowel sounds are normal. Palpations: Abdomen is soft. Musculoskeletal: Right lower leg: No edema. Left lower leg: No edema. Neurological: General: No focal deficit present. Mental Status: She is alert and oriented to person, place, and time. Data Review: Labs have been personally reviewed and are remarkable for the following: Recent Labs Component Name 08/21/22 0846 WBC 11.7* HGB 8.6* HCT 28.6* PLTCOUNT 584* Recent Labs Component Name 08/21/22 0847 SODIUM 146* POTASSIUM 2.9* CHLORIDE 108* CO2 28 BUN 7 CREATININE 1.62* CALCIUM 8.2* ALBUMIN 2.2* ALT 11 AST 5 GLUCOSE 180* No results for input(s): INR in the last 32753 hours. No results for input(s): CK, CKTOTAL, CKMB, CKMBUL, CKMBNGML, TROPONIN, TROPONINI, TROPONINT in thelast 61833 hours. Microbiology: Microbiology Results (Displays last 21 days for this encounter ONLY) No results found for the last 504 hours. Imaging: Imaging has been personally reviewed and is summarized as below: No results found. Risk Factors for Mortality Present at Time of Admission Electrolyte disturbances Assessment/Clinical Reasoning/Plan: # Intentional medication overdose-patient was very reserved in conversation. As per chart review she ingested 20 mg Lasix tablet 10 mg amlodipine tablets and 325 mg of iron tablets approximately 18 each. Poison Control recommended supportive care and daily CMP. Psychiatry consulted # Hypertension-patient was taking amlodipine 10 mg and Coreg 12.5 at home, her blood pressure is onthe higher side, but patient took a lot of tablets of amlodipine and Lasix, would hold off on over treating hypertension to allow adequate renal perfusion # Type 2 diabetes mellitus-patient takes 10 units of Lantus and Humalog at home Continue low-dose sliding scale with 5 units of Lantus at bedtime, give 5 units of Lantus in the morning. # Hypokalemia-likely secondary to diuretic overuse, continue to monitor and replace as needed # Normocytic anemia-monitor H&H iron studies and management outpatient # Thrombocytosis -EKG ordered for QTC considering the electrolyte abnormalities VTE Prophylaxis: Heparin Diet: DIET REGULAR Code: Full Code Emergency Contact: Mother D/w IM Attending Marnie Kaur MD PGY-3 Internal Medicine Resident [facility] Due to medical issues in the assessment and plan, continued hospitalization will be required. Associated attestation - Sawyer Guthrie MD - 08/21/2022 2:25 PM CDT Pt seen and examined independently by me Was resistant to answering question, Will get psych on board CMP as per poison control Labs and imaging reviewed Case discussed in detail with the admitting resident I agree with above assessment and plan documented in this encounter Consult Notes * Jacky Gordon MD - 08/25/2022 9:19 AM CDT Jacky Gordon MD, [facility] Division of Internal Medicine-Pulmonary Diseases office: backline ; fax [phone] Admit: 08/21/2022 8:11 AM Hospital Day: 4 Date of Consult: 08/25/2022 Patient's Primary Care Physician: No primary care provider on file. Physician Requesting Consult: The hospitalist team Reason for Consultation: Lung fibrotic changes Name: Gay Canales Age: [age] year old Sex: female History of Present Illness 31-year-old was hospitalized with drug overdose. She apparently ingested multiple doses of Norvasc,Lasix and iron. Poison control was notified. She had acute kidney injury. She received IV fluids. Psych was consulted. She did develop hypoxia. Never smoked in the past. On a good day she has no cough wheezing or chest pain. No dyspnea. Today she denies coughing or wheezing. No dyspnea she is improving. She also had leg swelling few days ago that is improving. X-ray showed bilateral infiltrate. She was told that she had pneumonia in outside facility recently. She is not sure if he lost consciousness after she tried to drug overdose. No hemoptysis. On further questioning she is not sure about snoring. She has 1 time nocturia. No morning headache.No excessive daytime sleepiness. Never had a sleep study in the past Chart was reviewed. The medical, surgical, family, social, medication and allergy history were all reviewed. Past Medical History: Diagnosis Date ??? Type 2 diabetes mellitus without complications (CMS/HCC) No past surgical history on file. Family History Problem Relation Name Age of Onset ??? Diabetes - Type 2 Father ??? Diabetes - Type 2 Paternal Grandmother Social History Occupational History ??? Not on file Tobacco Use ??? Smoking status: Never ??? Smokeless tobacco: Never Vaping Use ??? Vaping Use: Never used Substance and Sexual Activity ??? Alcohol use: Never ??? Drug use: Never ??? Sexual activity: Not on file Medications Prior to Admission Medication Sig Dispense Refill ??? amLODIPine (Norvasc) 10 MG tablet Take 10 mg by mouth once daily ??? carvedilol (Coreg) 12.5 MG tablet Take 12.5 mg by mouth 2 times daily ??? FeroSul 325 (65 Fe) MG tablet Take 325 mg by mouth daily with breakfast ??? furosemide (Lasix) 20 MG tablet Take 20 mg by mouth once daily ??? insulin glargine (Lantus/Semglee) 100 units/ml injection Inject 10 Units subcutaneously at bedtime ??? insulin lispro (HumaLOG) 100 UNIT/ML vial Inject 5 Units subcutaneously 3 times daily with meals ??? [] levoFLOXacin (Levaquin) 750 MG tablet Take 750 mg by mouth once daily No Known Allergies MEDICATIONS FOR CURRENT ENCOUNTER: ?? SCHEDULED MEDICATIONS: ?? 0.9% NaCl injection 3 mL, Intracatheter, q8h ?? amLODIPine (Norvasc) tablet 10 mg, Oral, QDAY ?? carvedilol (Coreg) tablet 12.5 mg, Oral, BID WC ?? FLUoxetine (PROzac) capsule 20 mg, Oral, QDAY ?? furosemide (Lasix) injection 20 mg, Intravenous, QDAY ?? heparin injection 5,000 Units, Subcutaneous, BID ?? insulin aspart (NovoLOG) pen 0-4 Units, Subcutaneous, AT BEDTIME ?? insulin aspart (NovoLOG) pen 0-6 Units, Subcutaneous, TID WC ?? insulin aspart (NovoLOG) pen 7 Units, Subcutaneous, TID WC ?? insulin glargine (Lantus) pen 15 Units, Subcutaneous, AT BEDTIME ?? CONTINUOUS MEDICATIONS: ?? PRN MEDICATIONS: ?? Or ?? 0.9% NaCl injection 1-10 mL, Intracatheter, PRN ?? dextrose 10 % IV bolus, Intravenous, PRN ?? dextrose 10 % IV bolus, Intravenous, PRN ?? glucagon (Glucagen) injection 1 mg, Subcutaneous, PRN ?? glucose chew tablet 4 tablet, Oral, PRN ?? glucose chew tablet 4 tablet, Oral, PRN Review of Systems All other systems reviewed and are negative. Vitals Vitals: 08/24/22 0758 08/24/22 1832 08/24/22204408/25/22 08 BP: 129/78 112/74 134/85 Pulse: 86 83 85 Resp: 18 18 Temp: 98.5 ??F (36.9 ??C) 98.9 ??F (37.2 ??C) SpO2: 92% 91% 90% Weight: Height: Intake/Output Summary (Last 24 hours) at 08/25/2022 09 Last data filed at 08/24/20222044 Gross per 24 hour Intake 120 ml Output 2100 ml Net -1980 ml Filed Wts: 08/21/22812 Weight: 128.8 kg (283 lb 14.4 oz) Physical Exam Vitals and nursing note reviewed. Constitutional: General: She is not in acute distress. Appearance: She is well-developed and well-nourished. She is not diaphoretic. HENT: Head: Normocephalic and atraumatic. Nose: Nose normal. Mouth/Throat: Mouth: Oropharynx is clear and moist. Pharynx: No oropharyngeal exudate. Neck: Thyroid: No thyromegaly. Trachea: No tracheal deviation. Cardiovascular: Rate and Rhythm: Normal rate and regular rhythm. Heart sounds: Normal heart sounds. No murmur heard. No friction rub. No gallop. Pulmonary: Effort: Pulmonary effort is normal. No respiratory distress. Breath sounds: No stridor. Comments: Could not appreciate crackles and could be due to body habitus Chest: Chest wall: No tenderness. Abdominal: General: There is no distension. Palpations: Abdomen is soft. Musculoskeletal: General: No tenderness or edema. Normal range of motion. Cervical back: Neck supple. Comments: Trace lower extremity edema. Lymphadenopathy: Cervical: No cervical adenopathy. Skin: General: Skin is warm and dry. Neurological: Mental Status: She is alert and oriented to person, place, and time. Psychiatric: Mood and Affect: Mood and affect normal. Behavior: Behavior normal. Thought Content: Thought content normal. Data No results for input(s): PHART, HPO1ZBM, PO2ART, U5ZQGZHB, BAT3HJB, BEART, FIO2 in the last 38639 hours. Recent Labs Component Name 08/22/2231608/21/22 0846 WBC 9.6 11.7* HGB 8.1* 8.6* HCT 26.8* 28.6* PLTCOUNT 571* 584* Recent Labs Component Name 08/25/22 0315 08/24/22 1404 08/24/22 0725 SODIUM 142 143 138 POTASSIUM 3.6 3.7 5.2* CHLORIDE 107 103 110* CO2 26 30 20* BUN 13 9 8 CREATININE 1.58* 1.43* 1.42* GLUCOSE 211* 145* 165* CALCIUM 7.9* 8.2* 7.8* Recent Labs Component Name 08/25/2231408/24/22 1404 08/24/22 0725 08/22/2231608/21/22 0847 ALBUMIN 2.0* 2.1* 1.7* - 2.2* ALKPHOS - - - - 87 ALT - - - - 11 AST - - - - 5 TBIL - - - - 0.3 TPROT - - - - 5.5* - = values in this interval not displayed. No results for input(s): BNP in the last 99740 hours. No results for input(s): CRP in the last 74310 hours. XR CHEST 1VW PORTABLE Result Date: 08/22/2022 PROCEDURE: XR CHEST 1VW PORTABLE, DATE/TIME OF EXAM: 08/22/2022 4:10 PM, LOCATION [facility] [place] [facility] CHEST, ONE VIEW AP PORTABLE HISTORY: I50.9: Heart failure, unspecified (CMS/HCC) COMPARISON:08/21/2022 FINDINGS: Moderate cardiomegaly and moderate right pleural effusion are similar to the previous examination. There is diffuse thickening of interstitial markings. No pneumothorax. IMPRESSION: Stable congestive heart failure. > Interpreting Provider: Jose Granados MD on 08/22/2022 4:13 PM XR CHEST 1VW PORTABLE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 mg/dL 08/23/2022 3:43 AM CDT [facility] Blood BLOOD SPECIMEN / Unknown Lab Venipuncture / Unknown 08/23/2022 3:14 AM CDT 08/23/2022 3:14 AM CDT Jimmy Jansen MD LAB - CHEMISTRY ORDE RABLES Performing Organization Address [facility] Co de Phone Number [facility] [address] [place] [address] * (ABNORMAL) RENAL FUNCTION PANEL (08/23/2022 3:14 AM CDT) Glucose 157(H) 70 - 105 mg/dL 08/23/2022 3:43 AM CDT [facility] Sodium 143 136 - 145 mmol/L 08/23/2022 3:43 AM CDT [facility] Potassium 3.5 3.5 - 5.1 mmol/L 08/23/2022 3:43 AM CDT [facility] Chloride 109(H) 98 - 107 mmol/L 08/23/2022 3:43 AM CDT [facility] CO2 28 23 - 31 mmol/L 08/23/2022 3:43 AM CDT [facility] Calcium 8.0(L) 8.4 - 10.4 mg/dL 08/23/2022 3:43 AM CDT [facility] Anion Gap 6(L) 8 - 18 mmol/L 08/23/2022 3:43 AM CDT [facility] BUN 6(L) 7 - 18.7 mg/dL 08/23/2022 3:43 AM CDT [facility] Creatinine 1.37(H) 0.57 - 1.11 mg/dL 08/23/2022 3:43 AM CDT [facility] Albumin 2.0(L) 3.5 - 5.2 gm/dL 08/23/2022 3:43 AM CDT [facility] Phosphorus 3.2 2.3 - 4.7 mg/dL 08/23/2022 3:43 AM CDT [facility] eGFR by CKD-EPI 54(L) >=90 mL/min/1.7 3 m2 08/23/2022 3:43 AM CDT [facility] Blood BLOOD SPECIMEN / Unknown Lab Venipuncture / Unknown 08/23/2022 3:14 AM CDT 08/23/2022 3:14 AM CDT Jimmy Jansen MD LAB - CHEMISTRY DIVINA OLVERA Performing Organization Address City/[facility] Co de Phone Number [facility] [address] [place] [phone] * (ABNORMAL) GLUCOSE - POINT OF CARE (08/22/2022 8:42 PM CDT) Glucose WB/POC 229(H) 70 - 106 mg/dL 08/22/2022 8:51 PM CDT [facility] Specimen Type Cap Fingerstick 2021 8:51 PM CDT [facility] Blood BLOOD SPECIMEN / Unknown 08/22/2022 8:42 PM CDT 08/22/2022 8:51 PM CDT Jimmy Jansen MD LAB - POINT OF CARE ORDERABLES Performing Organization Address [facility] Co de Phone Number [facility] [address] [place] [address] * (ABNORMAL) GLUCOSE - POINT OF CARE (08/22/2022 6:29 PM CDT) Glucose WB/POC 273(H) 70 - 106 mg/dL 08/22/2022 6:40 PM CDT [facility] Specimen Type Cap Fingerstick 2021 6:40 PM CDT [facility] Blood BLOOD SPECIMEN / Unknown 08/22/2022 6:29 PM CDT 08/22/2022 6:40 PM CDT Jimmy Jansen MD LAB - POINT OF CARE ORDERABLES Performing Organization Address City/State/[facility] Co de Phone Number [facility] [address] [place] [address] * XR CHEST 1VW PORTABLE (08/22/2022 4:09 PM CDT) Anatomical Region Laterality Modality Chest Radiographic Nissa ging 08/22/2022 4:12 PM CDT Impressions 08/22/2022 4:13 PM CDT IMPRESSION: Stable congestive heart failure. > Interpreting Provider: Jose Granados MD on 08/22/2022 4:13 PM Narrative 08/22/2022 4:13 PM CDT PROCEDURE: ??XR CHEST 1VW PORTABLE, DATE/TIME OF EXAM: ??08/22/2022 4:10 PM, LOCATION ??[facility], [facility] PORTABLE HISTORY: I50.9: Heart failure, unspecified (CMS/HCC) COMPARISON: 08/21/2022 FINDINGS: Moderate cardiomegaly and moderate right pleural effusion are similar to the previous examination. There is diffuse thickening of interstitial markings. No pneumothorax. Procedure Note Jose Granados MD - 08/22/2022 PROCEDURE: XR CHEST 1VW PORTABLE, DATE/TIME OF EXAM: 08/22/2022 4:10PM, LOCATION [facility], [facility] PORTABLE HISTORY: I50.9: Heart failure, unspecified (CMS/HCC) COMPARISON: 08/21/2022 FINDINGS: Moderate cardiomegaly and moderate right pleural effusion are similar to the previous examination. There is diffuse thickening of interstitial markings. No pneumothorax. IMPRESSION: Stable congestive heart failure. > Interpreting Provider: Jose Granados MD on 08/22/2022 4:13 PM Jimmy Jansen MD DIAGNOSTIC IMAGING O RDERABLES * (ABNORMAL) GLUCOSE - POINT OF CARE (08/22/2022 11:55 AM CDT) Glucose WB/POC 225(H) 70 - 106 mg/dL 08/22/2022 12:05 PM CDT [facility] Specimen Type Cap Fingerstick 2021 12:05 PM CDT [facility] Blood BLOOD SPECIMEN / Unknown 08/22/2022 11:55 AM CDT 08/22/2022 12:05 PM CDT Jimmy Jansen MD LAB - POINT OF CARE ORDERABLES Performing Organization Address City/[facility] Co de Phone Number [facility] [address] [place], [place] [phone] * (ABNORMAL) GLUCOSE - POINT OF CARE (08/22/2022 7:31 AM CDT) Glucose WB/POC 166(H) 70 - 106 mg/dL 08/22/2022 7:46 AM CDT [facility] Specimen Type Cap Fingerstick 2021 7:46 AM CDT [facility] Blood BLOOD SPECIMEN / Unknown 08/22/2022 7:31 AM CDT 08/22/2022 7:46 AM CDT Jimmy Jansen MD LAB - POINT OF CARE ORDERABLES Performing Organization Address City/[facility] Co de Phone Number [facility] [address] [place], [place] [phone] * (ABNORMAL) HEMOGLOBIN A1C (08/22/2022 3:17 AM CDT) Hemoglobin A1c 11.7(H) <5.7 % 08/22/2022 5:33 AM CDT [facility] Estimated Average Glucose 289 mg/dL 08/22/2022 5:33 AM CDT [facility] Blood BLOOD SPECIMEN / Unknown Lab Venipuncture / Unknown 08/22/2022 3:17 AM CDT 08/22/2022 4:56 AM CDT [facility] - 08/22/2022 5:33 AM CDT HbA1c Interpretation: Normal: < 5.7% Pre-diabetes: 5.7-6.4% Diabetes: Equal to or greater than 6.5% Test results diagnostic of diabetes should be repeated for confirmation. Treatment target values recommended by ADA and other clinical organizations should be used to evaluate metabolic control in patients. This test should not replace glucose testing for patients with Type 1 diabetes, pediatric patients, or women. ??Falsely low HbA1c results may be observed in patients with clinical conditions that shorten erythrocyte life span or decrease mean erythrocyte age such as the presence of unstable hemoglobin variants, elevated hemoglobin F level or other causes of hemolytic anemia. ??HbA1c may not accurately reflect glycemic control when clinical conditions that affect erythrocyte survival are present. ??Severe Iron deficiency anemia may yield falsely high results. ??Hemoglobin A1c assay should not be used to diagnose or monitor diabetes in patients with malignancy, recent blood transfusion, chronic kidney or liver disease. ?? This method may yield falsely low results when hemoglobin (HbF) exceeds 5% in the specimen. The [employer] assay for the measurement of HbA1c is a National Glycohemoglobin Standardization Program (NGSP) certified method. Sawyer Guthrie MD [facility] Organization Address City/State/[facility] Co de Phone Number [facility] [address] [place] [address] * (ABNORMAL) CBC W AUTO DIFFERENTIAL (08/22/2022 3:17 AM CDT) [facility] WBC 9.6 4.4 - 10.7 x10E9/L 08/22/2022 5:07 AM CDT [facility] WBC Corrected 08/22/2022 5:07 AM CDT [facility] RBC 3.04(L) 3.80 - 5.20 x10E12/L 08/22/2022 5:07 AM CDT [facility] Hemoglobin 8.1(L) 12.0 - 15.6 gm/dL 08/22/2022 5:07 AM CDT [facility] Hematocrit 26.8(L) 35.9 - 45.5 % 08/22/2022 5:07 AM CDT [facility] MCV 88.2 80.7 - 98.3 fl 08/22/2022 5:07 AM CDT [facility] MCH 26.6(L) 26.7 - 34.0 pg 08/22/2022 5:07 AM CDT [facility] MCHC 30.2(L) 30.8 - 35.9 gm/dL 08/22/2022 5:07 AM CDT [facility] Platelet Count 571(H) 153 - 416 x10E9/L 08/22/2022 5:07 AM CDT [facility] RDW-CV 14.6 12.1 - 14.9 % 08/22/2022 5:07 AM CDT [facility] MPV 9.7 9.4 - 12.9 fl 08/22/2022 5:07 AM CDT [facility] Neutrophils % 61.7 44.0 - 73.0 % 08/22/2022 5:07 AM CDT [facility] Lymphocytes % 24.8 20.0 - 43.0 % 08/22/2022 5:07 AM CDT [facility] Monocytes % 9.2 5.0 - 13.0 % 08/22/2022 5:07 AM CDT [facility] Eosinophils % 3.7 0.0 - 6.0 % 08/22/2022 5:07 AM CDT [facility] Basophils % 0.2 0.0 - 2.0 % 08/22/2022 5:07 AM CDT [facility] Immature Granulocytes 0.4 0 - 1 % 08/22/2022 5:07 AM CDT [facility] Neutrophil Absolute 5.91 2.01 - 7.14 x10E9/L 08/22/2022 5:07 AM CDT [facility] Lymphocytes Absolute 2.37 1.07 - 3.94 x10E9/L 08/22/2022 5:07 AM CDT [facility] Monocytes Absolute 0.88 0.26 - 1.07 x10E9/L 08/22/2022 5:07 AM CDT [facility] Eosinophils Absolute 0.35 0 - 0.47 x10E9/L 08/22/2022 5:07 AM CDT [facility] Basophils Absolute 0.02 0 - 0.08 x10E9/L 08/22/2022 5:07 AM CDT [facility] Immature Granulocytes Absolute 0.04 0.00 - 0.06 x10E9/L 08/22/2022 5:07 AM CDT [facility] nRBC Auto 0 /100 WBC 08/22/2022 5:07 AM CDT [facility] Blood BLOOD SPECIMEN / Unknown Lab Venipuncture / Unknown 08/22/2022 3:17 AM CDT 08/22/2022 4:56 AM CDT Devon Andrade DO LAB - HEMATOLOGY ORD ERABLES Performing Organization Address City/[facility]/ZIP Co de Phone Number [facility] [address] [place] [address] * MAGNESIUM BLOOD (08/22/2022 3:17 AM CDT) Magnesium 1.8 1.6 - 2.6 mg/dL 08/22/2022 5:21 AM CDT [facility] Blood BLOOD SPECIMEN / Unknown Lab Venipuncture / Unknown 08/22/2022 3:17 AM CDT 08/22/2022 4:56 AM CDT Devon Andrade DO LAB - CHEMISTRY ORDE RABLES Performing Organization Address City/[facility] Co de Phone Number [facility] [address] [place] [address] * (ABNORMAL) RENAL FUNCTION PANEL (08/22/2022 3:17 AM CDT) Glucose 204(H) 70 - 105 mg/dL 08/22/2022 5:23 AM CDT [facility] Sodium 144 136 - 145 mmol/L 08/22/2022 5:23 AM CDT [facility] Potassium 3.5 3.5 - 5.1 mmol/L 08/22/2022 5:23 AM CDT [facility] Chloride 109(H) 98 - 107 mmol/L 08/22/2022 5:23 AM CDT [facility] CO2 26 23 - 31 mmol/L 08/22/2022 5:23 AM CDT [facility] Calcium 8.1(L) 8.4 - 10.4 mg/dL 08/22/2022 5:23 AM CDT [facility] Anion Gap 9 8 - 18 mmol/L 08/22/2022 5:23 AM CDT [facility] BUN 7 7 - 18.7 mg/dL 08/22/2022 5:23 AM CDT [facility] Creatinine 1.49(H) 0.57 - 1.11 mg/dL 08/22/2022 5:23 AM CDT [facility] Albumin 2.0(L) 3.5 - 5.2 gm/dL 08/22/2022 5:23 AM CDT [facility] Phosphorus 3.2 2.3 - 4.7 mg/dL 08/22/2022 5:23 AM CDT [facility] eGFR by CKD-EPI 48(L) >=90 mL/min/1.7 3 m2 08/22/2022 5:23 AM CDT [facility] Blood BLOOD SPECIMEN / Unknown Lab Venipuncture / Unknown 08/22/2022 3:17 AM CDT 08/22/2022 4:56 AM CDT Devon Andrade DO LAB - CHEMISTRY DIVINA OLVERA [facility] [address] [place] [address] * (ABNORMAL) GLUCOSE - POINT OF CARE (08/21/2022 8:15 PM CDT) [facility] Glucose WB/POC 259(H) 70 - 106 mg/dL 08/21/2022 8:24 PM CDT [facility] Specimen Type Cap Fingerstick 2021 8:24 PM CDT [facility] Blood BLOOD SPECIMEN / Unknown 08/21/2022 8:15 PM CDT 08/21/2022 8:24 PM CDT Sawyer Guthrie MD LAB - POINT OF CARE ORDERABLES [facility] [address], [place] [phone] * (ABNORMAL) GLUCOSE - POINT OF CARE (08/21/2022 5:38 PM CDT) Glucose WB/POC 241(H) 70 - 106 mg/dL 08/21/2022 5:44 PM CDT [facility] Specimen Type Cap Fingerstick 2021 5:44 PM CDT [facility] Blood BLOOD SPECIMEN / Unknown 08/21/2022 5:38 PM CDT 08/21/2022 5:44 PM CDT Sawyer Guthrie MD LAB - POINT OF CARE ORDERABLES [facility] [address] [place] [address] * ECHOCARDIOGRAM 2D WITH DOPPLER (08/21/2022 3:15 PM CDT) 08/21/2022 3:15 PM CDT Narrative Procedure Note Himanshu Martin MD - 08/21/2022 . [facility] [address] [place] [id number] Echocardiography Examination Transthoracic Name: GAY CANALES [facility]#: MR#: [id number] Admission Number: [id number] Study Date: 08/21/2022 Study Time: 04:00 PM Date Of : 1990 Age: 31 years Height: 67 in. (170.2 cm) Weight: 283 lbs. (128.37 kg) BSA: 2.34 m2 Gender: Female Blood Pressure: 147 mmHg / 86 mmHg Heart Rate: Exam Details Procedure Ordered: ECHOCARDIOGRAM 2D W/DOPPLER Procedure Components: Complete 2D, M-mode, complete spectral Doppler, color Doppler Procedure Status: STAT study Facility Location: [facility] [place] Indication: Intentional Overdose Procedure Permastone Applicator: Riley Garza Ordering Provider: SAWYER GUTHRIE Reading Physician: Himanshu Martin MD Conclusions [...] ? RVSP: 36 mmHg. Follow up: Patient: GAY CANALES Study Date: 08/21/2022 04:00 PM Page [...] MOD4 61 ml (22ml - 52ml) Patient: GAY CANALES Study Date: 08/21/2022 04:00 PM Page [...] PHT 35 ms Mitral Valve MV Dec Patrick 9.78 m/s?? Pulmonic Valve PV PGmax 3 mmHg Pulmonic Valve PV Vmax, Caliper 0.92 m/s (0.6m/s - 0.9m/s) Right Ventricle Diastolic TR Pmax 28 mmHg Function Right Ventricle Diastolic PV AT 100 ms Function Tricuspid Valve RVSP 36 mmHg Tricuspid Valve RA Pressure 8 mmHg Tricuspid Valve TR Vmax 2.64 m/s (No Signature Object) Patient: GAY CANALES Study Date: 08/21/2022 04:00 PM Page 3 of 4 Patient: GAY CANALES Study Date: 08/21/2022 04:00 PM Page 4 of 4 Sawyer Guthrie MD ECHO ORDERABLES Performing Organization Address City/[facility] Co de Phone Number [facility] [address] [place] [phone] * (ABNORMAL) GLUCOSE - POINT OF CARE (08/21/2022 1:02 PM CDT) [facility] Glucose WB/POC 224(H) 70 - 106 mg/dL 08/21/2022 1:09 PM CDT [facility] Specimen Type Cap Fingerstick 2021 1:09 PM CDT [facility] Blood BLOOD SPECIMEN / Unknown 08/21/2022 1:02 PM CDT 08/21/2022 1:09 PM CDT Sawyer Guthrie MD LAB - POINT OF CARE ORDERABLES Performing Organization Address [facility] Co de Phone Number [facility] [address] [place] [phone] * EKG 12-LEAD (08/21/2022 12:48 PM CDT) [facility] Ventricular Rate 91 BPM [facility] Atrial Rate 91 BPM [facility] P-R Interval 164 ms [facility] QRS Duration ms 84 ms [facility] Q-T Interval ms 376 ms [facility] QTC Calculation (Bezet) 462 ms [facility] Calculated P Mitchell 59 degrees [facility] Calculated R Mitchell -7 degrees [facility] Calculated T Mitchell 28 degrees [facility] Interpretation EKG NORMAL SINUS RHYTHM LEFT ATRIAL ENLARGEMENT BORDERLINE ECG NO PREVIOUS ECGS AVAILABLE Confirmed by MD Mario, Himanshu ([id number]) on 08/21/2022 5:23:03 PM [facility] 08/21/2022 12:4 8 PM CDT 08/21/2022 5:23 PM CDT Sawyer Guthrie MD ECG ORDERABLES [facility] * XR CHEST 1VW PORTABLE (08/21/2022 12:25 PM CDT) Anatomical Region Laterality Modality Chest Radiographic Nissa ging 08/21/2022 12:5 1 PM CDT Impressions 08/21/2022 12:52 PM CDT IMPRESSION: Hypoventilated lungs. Diffuse pulmonary infiltrates, right greater than left. There may be a small right pleural effusion. Cardiomegaly and pulmonary vascular congestion. > Interpreting Provider: Lázaro Arias MD on 08/21/2022 12:52 PM Narrative 08/21/2022 12:52 PM CDT PROCEDURE: ??XR CHEST 1VW PORTABLE, DATE/TIME OF EXAM: ??08/21/2022 12:48 PM, LOCATION ??[facility] INDICATION: T50.902A: Poisoning by unspecified drugs, medicaments and biological substances, intentional self-harm, initial encounter ([facility]) Findings: The lung nunn are hypoventilated. There are diffuse pulmonary infiltrates right greater than left. There may be a small right pleural effusion. There is no pneumothorax. There is cardiomegaly. There is pulmonary vascular congestion. Procedure Note Lázaro Arias MD - 08/21/2022 PROCEDURE: XR CHEST 1VW PORTABLE, DATE/TIME OF EXAM: 08/21/2022 12:48PM, LOCATION [facility] INDICATION: T50.902A: Poisoning by unspecified drugs, medicaments and biological substances, intentional self-harm, initial encounter ([facility]) Findings: The lung nunn are hypoventilated. There are diffusepulmonary infiltrates right greater than left. There may be a small right pleural effusion. There is no pneumothorax. There is cardiomegaly. There is pulmonary vascular congestion. IMPRESSION: Hypoventilated lungs. Diffuse pulmonary infiltrates, right greater than left. There may be a small right pleural effusion. Cardiomegaly and pulmonary vascular congestion. > Interpreting Provider: Lázaro Airas MD on 08/21/2022 12:52 PM Sawyer Guthrie MD DIAGNOSTIC IMAGING O RDERABLES * (ABNORMAL) GLUCOSE - POINT OF CARE (08/21/2022 10:26 AM CDT) Glucose WB/POC 213(H) 70 - 106 mg/dL 08/21/2022 11:00 AM CDT [facility] Specimen Type Cap Fingerstick 2021 11:00 AM CDT [facility] Blood BLOOD SPECIMEN / Unknown 08/21/2022 10:26 AM CDT 08/21/2022 11:00 AM CDT Sawyer Guthrie MD LAB - POINT OF CARE ORDERABLES [facility] [address] [place] [address] * LACTIC ACID BLOOD (08/21/2022 10:01 AM CDT) Lactic Acid 1.2 <=2 mmol/L 08/21/2022 10:54 AM CDT [facility] Blood BLOOD SPECIMEN / Unknown Lab Venipuncture / Unknown 08/21/2022 10:01 AM CDT 08/21/2022 10:29 AM CDT Sawyer Guthrie MD LAB - CHEMISTRY DIVINA OLVERA [facility] [address] [place] [address] * MAGNESIUM BLOOD (08/21/2022 8:47 AM CDT) Magnesium 1.8 1.6 - 2.6 mg/dL 08/21/2022 10:08 AM CDT [facility] Blood BLOOD SPECIMEN / Unknown Lab Venipuncture / Unknown 08/21/2022 8:47 AM CDT 08/21/2022 9:36 AM CDT Devon Asher Andrade DO LAB - CHEMISTRY DIVINA OLVERA Performing Organization Address City/State/[facility] Co de Phone Number [facility] [address] [place] [address] * (ABNORMAL) COMPREHENSIVE METABOLIC PANEL (08/21/2022 8:47 AM CDT) Pathologist [facility] Glucose 180(H) 70 - 105 mg/dL 08/21[facility]2022 10:[facility] Sodium 146(H) 136 - 145 mmol/L 08/21/2022 10:08 AM [facility] Potassium 2.9(L) 3.5 - 5.1 mmol/L 08/21/2022 10:08 AM [facility] Chloride 108(H) 98 - 107 mmol/L 08/21/2022 10:08 AM T [facility] CO2 28 23 - 31 mmol/L 08/21/2022 10:08 AM T [facility] Calcium 8.2(L) 8.4 - 10.4 mg/dL 08/21/2022 10:08 AM [facility] Anion Gap 10 8 - 18 mmol/L 08/21/2022 10:08 AM T [facility] BUN 7 7 - 18.7 mg/dL 08/21/2022 10:08 AM T [facility] Creatinine 1.62(H) 0.57 - 1.11 mg/dL 08/21/2022 10:08 AM [facility] Alkaline Phosphatase 87 40 - 150 U/L 08/21/2022 10:08 AM T [facility] ALT 11 0 - 61 U/L 08/21/2022 10:08 AM CDT [facility] AST 5 5 - 34 U/L 08/21/2022 10:08 AM CDT [facility] Protein Total 5.5(L) 6.4 - 8.3 gm/dL 08/21/2022 10:08 AM CDT [facility] Albumin 2.2(L) 3.5 - 5.2 gm/dL 08/21/2022 10:08 AM CDT [facility] Bilirubin Total 0.3 0.2 - 1.2 mg/dL 08/21/2022 10:08 AM CDT [facility] [facility] eGFR by CKD-EPI 44(L) >=90 mL/min/1.7 3 m2 08/21/2022 10:08 AM CDT [facility] Blood BLOOD SPECIMEN / Unknown Lab Venipuncture / Unknown 08/21/2022 8:47 AM CDT 08/21/2022 9:36 AM CDT Devon Andrade DO LAB - CHEMISTRY DIVINA OLVERA Performing Organization Address City/State/[facility] Co de Phone Number [facility] [address] [place] [address] * (ABNORMAL) CBC W AUTO DIFFERENTIAL (08/21/2022 8:46 AM CDT) WBC 11.7(H) 4.4 - 10.7 x10E9/L 08/21/2022 9:44 AM CDT [facility] WBC Corrected 08/21/2022 9:44 AM CDT [facility] RBC 3.25(L) 3.80 - 5.20 x10E12/L 08/21/2022 9:44 AM CDT [facility] Hemoglobin 8.6(L) 12.0 - 15.6 gm/dL 08/21/2022 9:44 AM CDT [facility] Hematocrit 28.6(L) 35.9 - 45.5 % 08/21/2022 9:44 AM CDT [facility] MCV 88.0 80.7 - 98.3 fl 08/21/2022 9:44 AM CDT [facility] MCH 26.5(L) 26.7 - 34.0 pg 08/21/2022 9:44 AM CDT [facility] MCHC 30.1(L) 30.8 - 35.9 gm/dL 08/21/2022 9:44 AM CDT [facility] Platelet Count 584(H) 153 - 416 x10E9/L 08/21/2022 9:44 AM CDT [facility] RDW-CV 14.4 12.1 - 14.9 % 08/21/2022 9:44 AM CDT [facility] MPV 9.7 9.4 - 12.9 fl 08/21/2022 9:44 AM CDT [facility] Neutrophils % 69.5 44.0 - 73.0 % 08/21/2022 9:44 AM CDT [facility] Lymphocytes % 21.2 20.0 - 43.0 % 08/21/2022 9:44 AM CDT [facility] Monocytes % 7.3 5.0 - 13.0 % 08/21/2022 9:44 AM CDT [facility] Eosinophils % 1.2 0.0 - 6.0 % 08/21/2022 9:44 AM CDT [facility] Basophils % 0.3 0.0 - 2.0 % 08/21/2022 9:44 AM CDT [facility] Immature Granulocytes 0.5 0 - 1 % 08/21/2022 9:44 AM CDT [facility] Neutrophil Absolute 8.13(H) 2.01 - 7.14 x10E9/L 08/21/2022 9:44 AM CDT [facility] Lymphocytes Absolute 2.48 1.07 - 3.94 x10E9/L 08/21/2022 9:44 AM CDT [facility] Monocytes Absolute 0.85 0.26 - 1.07 x10E9/L 08/21/2022 9:44 AM CDT [facility] Eosinophils Absolute 0.14 0 - 0.47 x10E9/L 08/21/2022 9:44 AM CDT [facility] Basophils Absolute 0.03 0 - 0.08 x10E9/L 08/21/2022 9:44 AM CDT [facility] Immature Granulocytes Absolute 0.06 0.00 - 0.06 x10E9/L 08/21/2022 9:44 AM CDT [facility] nRBC Auto 0 /100 WBC 08/21/2022 9:44 AM CDT [facility] Blood BLOOD SPECIMEN / Unknown Lab Venipuncture / Unknown 08/21/2022 8:46 AM CDT 08/21/2022 9:36 AM CDT Devon Andrade DO LAB - HEMATOLOGY ORD ERABLES [facility] [address] [place] [address] documented in this encounter Visit Diagnoses Diagnosis CHF (congestive heart failure) ([facility])- Primary Congestive heart failure, unspecified Intentional overdose, initial encounter (HCC) CHF (congestive heart failure) (HCC) Congestive heart failure, unspecified Intentional overdose of drug in tablet form (HCC) Severe recurrent major 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 psychotic features (HCC) Major depressive disorder, recurrent episode, severe, without mention of psychotic behavior PTSD (post-traumatic stress disorder) Posttraumatic stress disorder documented in this encounter Administered Medications Inactive Administered Medications - up to 3 most recent administrations Medication Order MAR Action Action Date Dose Rate Site 0.9% NaCl injection 1-10 mL 1-10 mL, Intracatheter, PRN, Other, peripheral line flush, Starting on Fri08/21/22 at 0815, Until 08/25/22 at 1845, Flush peripheral IV catheter with 1-10 mL of normal saline before and after medications and prn to clear blood from the line or to verify patency. 0.9% NaCl injection 3 mL 3 mL, Intracatheter, EVERY 8 HOURS, First dose on Fri08/21/22 at 0900, Until Discontinued, Flush peripheral IV catheter with 3 mL of normal saline every 8 hours. $ Given 08/25/2022 5:39 AM CDT 3 mL $ Given 08/24/2022 8:59 PM CDT 3 mL $ Given 08/24/2022 6:01 AM CDT 3 mL amLODIPine (Norvasc) tablet 10 mg 10 mg, Oral, DAILY, First dose on Fri08/22/22 at 0900, Until Discontinued $ Given 08/25/2022 9:34 AM CDT 10 mg $ Given 08/24/2022 9:26 AM CDT 10 mg $ Given 08/23/2022 9:34 AM CDT 10 mg carvedilol (Coreg) tablet 12.5 mg 12.5 mg, Oral, 2 TIMES DAILY WITH MEALS, First dose on [facility] 08/22/22 at 1030, Until Discontinued, Take with food $ Given 08/25/2022 9:34 AM CDT 12.5 mg $ Given 08/24/2022 6:32 PM CDT 12.5 mg $ Given 08/24/2022 9:26 AM CDT 12.5 mg dextrose 10 % IV bolus 12.5 g, at 468.75 mL/hr, Intravenous, PRN, Other, Bedside Glucose less than 70 mg/dL -If NOT able to eat and/or NPO and with IV Access, Starting on [facility] 08/22/22 at 0807, Until 08/25/22 at 1845, If NOT able to eat and/or NPO [...] NPO and with IV Access, Starting on [facility] 08/22/22 at 0807, Until 08/25/22 at 1845, If NOT able to eat and/or NPO [...] IV STAT NOTIFY PROVIDER OF HYPOGLYCEMIC EVENT. FLUoxetine (PROzac) capsule 20 mg 20 mg, Oral, DAILY, First dose on [facility] 08/22/22 at 1345, Until Discontinued $ Given 08/25/2022 9:34 AM CDT 20 mg $ Given 08/24/2022 9:26 AM CDT 20 mg $ Given 08/23/2022 9:34 AM CDT 20 mg furosemide (Lasix) injection 20 mg 20 mg, Intravenous, DAILY, First dose on 08/25/22 at 0900, Until Discontinued $ Given 08/25/2022 9:34 AM CDT 20 mg furosemide (Lasix) injection 40 mg 40 mg, Intravenous, DAILY, First dose on [facility] 08/22/22 at 1045, Until Discontinued $ Given 08/24/2022 9:26 AM CDT 40 mg $ Given 08/23/2022 9:34 AM CDT 40 mg $ Given 08/22/2022 11:48 AM CDT 40 mg glucagon (Glucagen) injection 1 mg 1 mg, Subcutaneous, PRN, Bedside Glucose less than 70 mg/dL - If NOT able to eat and/or NPO and withOUT IV Access, Starting on [facility] 08/22/22 at 0807, Until [place] 08/25/22 at 1845, If NOT able to eat and/or NPO and NO IV Access: For Bedside glucose 54-69 mg/dL - Give 1 mg SQ For Bedside Glucose LESS than 54 mg/dl - verify with a second bedside glucose (from a different site) - Give 1 mg SQ Re-check and Re-treat blood glucose EVERY 10-25 minutes until blood glucose GREATER than or equal to 80 mg/dl. NOTIFY PROVIDER OF HYPOGLYCEMIC EVENT. Reconstitute vial with 1 mL of sterile water for injection for a final concentration of 1 mg/mL; shake vial gently; use immediately and discard unused portion glucose chew tablet 4 tablet 4 tablet (16 g), Oral, PRN, Other, Bedside Glucose less than 70 mg/dL -If able to eat and does not have swallowing difficulties, Starting on Fri08/21/22 at 0952, Until [place] 08/25/22 at 1845, If able to eat and does not [...] for choices). NOTIFY PROVIDER OF HYPOGLYCEMIC EVENT. glucose chew tablet 4 tablet 4 tablet (16 g), Oral, PRN, Other, Bedside Glucose less than 70 mg/dL -If able to eat and does not have swallowing difficulties, Starting on [facility] 08/22/22 at 0807, Until 08/25/22 at 1845, If able to eat and does not [...] NOTIFY PROVIDER OF HYPOGLYCEMIC EVENT. heparin injection 5,000 Units 5,000 Units, Subcutaneous, 2 TIMES DAILY, First dose on Fri08/21/22 at 1215, Until Discontinued $ Given 08/25/2022 9:34 AM CDT 5,000 Units Abdominal Tissue $ Given 08/24/2022 8:59 PM CDT 5,000 Units A bdominal Tissue $ Given 08/24/2022 9:26 AM CDT 5,000 Units A bdominal Tissue insulin aspart (NovoLOG) pen 0-4 Units 0-4 Units, Subcutaneous, AT BEDTIME, First dose on Fri08/21/22 at 2100, Until Discontinued, Low Dose: Bedtime Correction Insulin Bedside glucose should be done within 30-60 minutes of correction insulin administration. BG (mg/dL) Corrective Action LESS than 70 follow Hypoglycemic guidelines, 71-220 NO bedtime correction insulin 221-260 GIVE 1 unit of insulin 261-300 GIVE 2 units of insulin 301-350 GIVE 3 units of insulin Greater than 350 GIVE 4 units of insulin and notify physician $ Given 08/24/2022 9:00 PM CDT 1 Units Abdominal Tissue $ Given 08/22/2022 8:45 PM CDT 1 Units Ab dominal Tissue $ Given 08/21/2022 8:15 PM CDT 1 Units Ab dominal Tissue insulin aspart (NovoLOG) pen 0-6 Units 0-6 Units, Subcutaneous, 3 TIMES DAILY WITH MEALS, First dose on Fri08/21/22 at 1200, Until Discontinued, Low Dose: Correction Insulin Bedside glucose should be done within 30-60 minutes of correction insulin administration. BG (mg/dL) Corrective Action LESS than 70: follow Hypoglycemic guidelines, 70-180: NO Correction insulin, 181-220: GIVE 2 units of insulin, 221-260: GIVE 3 units of insulin, 261-300: GIVE 4 units of insulin, 301-350: GIVE 5 units of insulin, Greater than 350: GIVE 6 units of insulin and notify physician. If the patient is NPO: DO NOT HOLD correction insulin If patient is eating meals and has orders for Mealtime insulin, combine and give at the same time. $ Given 08/22/2022 6:54 PM CDT 4 Units Right Arm $ Given 08/22/2022 11:56 AM CDT 3 Units R ight Arm $ Given 08/21/2022 5:53 PM CDT 3 Units Ri ght Arm insulin aspart (NovoLOG) pen 5 Units 5 Units, Subcutaneous, 3 TIMES DAILY WITH MEALS, First dose on [facility] 08/22/22 at 0845, Until Discontinued, MEALTIME INSULIN Hold MEALTIME insulin if patient is NPO or eating less than 50% of meals. -OR- if carb intake for the meal is less than 30 grams. May be given immediately before meal, during meal, or immediately after meal is eaten. Meal must be present before administration. Combine mealtime dose and correction insulin dose if needed into one injection. $ Given 08/24/2022 1:19 PM CDT 5 Units Right Arm $ Given 08/24/2022 9:24 AM CDT 5 Units Ab dominal Tissue $ Given 08/23/2022 6:14 PM CDT 5 Units Le ft Arm insulin aspart (NovoLOG) pen 7 Units 7 Units, Subcutaneous, 3 TIMES DAILY WITH MEALS, First dose (after last modification) on 08/25/22 at 0800, Until Discontinued, MEALTIME INSULIN Hold MEALTIME insulin if patient is NPO or eating less than 50% of meals. -OR- if carb intake for the meal is less than 30 grams. May be given immediately before meal, during meal, or immediately after meal is eaten. Meal must be present before administration. Combine mealtime dose and correction insulin dose if needed into one injection. $ Given 08/25/2022 9:40 AM CDT 7 Units Left Arm insulin glargine (Lantus) pen 10 Units 10 Units, Subcutaneous, AT BEDTIME, First dose (after last modification) on [facility] 08/22/22 at 2100, Until Discontinued, Consider calling physician for *dose reduction* if patient is made NPO or if TPN/PPN/tube feeding is held. DO NOT HOLD even if patient is NPO. . WASTE DISPOSAL INSTRUCTIONS: Black Bin Disposal required. $ Given 08/24/2022 9:01 PM CDT 10 Units Abdominal Tissue $ Given 08/23/2022 8:29 PM CDT 10 Units Ab dominal Tissue $ Given 08/22/2022 8:47 PM CDT 10 Units Ab dominal Tissue insulin glargine (Lantus) pen 15 Units 15 Units, Subcutaneous, AT BEDTIME, First dose (after last modification) on 08/25/22 at 2100, Until Discontinued, Consider calling physician for *dose reduction* if patient is made NPO or if TPN/PPN/tube feeding is held. DO NOT HOLD even if patient is NPO. . WASTE DISPOSAL INSTRUCTIONS: Black Bin Disposal required. insulin glargine (Lantus) pen 5 Units 5 Units, Subcutaneous, AT BEDTIME, First dose on Fri08/21/22 at 2100, Until Discontinued, Consider calling physician for *dose reduction* if patient is made NPO or if TPN/PPN/tube feeding is held. DO NOT HOLD even if patient is NPO. . WASTE DISPOSAL INSTRUCTIONS: Black Bin Disposal required. $ Given 08/21/2022 8:15 PM CDT 5 Units Abdominal Tissue insulin glargine (Lantus) pen 5 Units 5 Units, Subcutaneous, ONCE, 1 dose, On Fri08/21/22 at 1215, ............. DO NOT HOLD even if patient is NPO Consider calling physician for dose reduction if patient is made NPO. Body mass index is 44.47 kg/m??. . WASTE DISPOSAL INSTRUCTIONS: Black Bin Disposal required. $ Given 08/21/2022 1:07 PM CDT 5 Units Abd Left Lower Quadrant lactated ringers infusion at 75 mL/hr, Intravenous, CONTINUOUS, Starting on Fri08/21/22 at 1200, Until Fri08/21/22 at 1504 $ New Bag/Syringe 08/21/2022 1:12 PM CDT 75 mL/hr lactated ringers IV bolus 500 mL, at 491.8 mL/hr, Administer over 61 Minutes, ONCE, 1 dose, On Fri08/21/22 at 1145 $ New Bag/Syringe 08/21/2022 11:59 AM CDT 500 mL 491.8 mL/hr magnesium sulfate 2 g in 50 mL bolus 2 g, at 25 mL/hr, Administer over 120 Minutes, Intravenous, ONCE, 1 dose, On Fri08/23/22 at 0600, Infuse at 1 gm/hr $ New Bag/Syringe 08/23/2022 6:00 AM CDT 2 g 25 mL/hr potassium chloride ER (Klor-Con M) tablet 40 mEq 40 mEq, Oral, 2 TIMES DAILY WITH MEALS, 2 doses, First dose on Fri08/21/22 at 1200, Last dose on Fri08/21/22 at 1800, Do not crush or chew. $ Given 08/21/2022 5:24 PM CDT 40 mEq $ Given 08/21/2022 11:59 AM CDT 40 mEq potassium chloride ER (Klor-Con M) tablet 40 mEq 40 mEq, Oral, ONCE, 1 dose, On Fri08/22/22 at 0615, Do not crush or chew. $ Given 08/22/2022 6:26 AM CDT 40 mEq potassium chloride oral solution 40 mEq 40 mEq, Oral, ONCE, 1 dose, On Fri08/23/22 at 0600, Dilute each 15 mL with at least 3 ounces of liquid $ Given 08/23/2022 5:59 AM CDT 40 mEq documented in this encounter Active and Recently Administered Medications Times are shown in CDT. Scheduled Medication Order 08/23/2022 08/24/2022 08/25/2022 0.9% NaCl injection 3 mL(Linked Group 1) 3 mL, Intracatheter, EVERY 8 HOURS, First dose on Fri08/21/22 at 0900, Until Discontinued, Flush peripheral IV catheter with 3 mL of normal saline every 8 hours. 1352 (Not Administered - Provider: Chasidy Gallardo RN - Reason: IV Currently Infusing)2027 ($ Given - Provider: Evelia Soto LPN) 0601 ($ Given - Provider: Evelia Soto LPN)1623 (Not Administered - Provider: Leslie Valles RN - Reason: IV Currently Infusing)205 ($ Given - Provider: Evelia Soto LPN) 0539 ($ Given - Provider: Evelia Soto LPN)1304 (Not Administered - Provider: Michela Lorenzo RN - Reason: Loss of Access) amLODIPine (Norvasc) tablet 10 mg 10 mg, Oral, DAILY, First dose on Fri08/22/22 at 0900, Until Discontinued 0934 ($ Given - Provider: Yessica Jansen RN) 0926 ($ Given - Provider: Evelyn Carrillo, JIMMIE) 0934 ($ Given - Provider: Mary Gabriel, JIMMIE) carvedilol (Coreg) tablet 12.5 mg 12.5 mg, Oral, 2 TIMES DAILY WITH MEALS, First dose on Fri08/22/22 at 1030, Until Discontinued, Take with food 0934 ($ Given - Provider: Yessica Jansen RN)1814 ($ Given - Provider: Chasidy Gallardo RN) 0926 ($ Given - Provider: Evelyn Carrillo RN)1832 ($ Given - Provider: Leslie Valles RN) 0934 ($ Given - Provider: Mary Gabriel, JIMMIE) FLUoxetine (PROzac) capsule 20 mg 20 mg, Oral, DAILY, First dose on Fri08/22/22 at 1345, Until Discontinued 0934 ($ Given - Provider: Yessica Jansen RN) 0926 ($ Given - Provider: Evelyn Carrillo RN) 0934 ($ Given - Provider: Mary Gabriel, JIMMIE) furosemide (Lasix) injection 20 mg 20 mg, Intravenous, DAILY, First dose on Fri08/25/22 at 0900, Until Discontinued 933 ($ Given - Provider: Mary Gabriel, JIMMIE) furosemide (Lasix) injection 40 mg (CANCELED) 40 mg, Intravenous, DAILY, First dose on Fri08/22/22 at 1045, Until Discontinued 933 ($ Given - Provider: Yessica Jansen RN) 0926 ($ Given - Provider: Evelyn Carrillo RN) heparin injection 5,000 Units 5,000 Units, Subcutaneous, 2 TIMES DAILY, First dose on Fri08/21/22 at 1215, Until Discontinued 933 ($ Given - Provider: Yessica Jasnen RN)2026 ($ Given - Provider: Evelia Soto LPN) 0926 ($ Given - Provider: Evelyn Carrillo RN)2058 ($ Given - Provider: Evelia Soto LPN) 0934 ($ Given - Provider: Mary Gabriel RN) insulin aspart (NovoLOG) pen 0-4 Units 0-4 Units, Subcutaneous, AT BEDTIME, First dose on Fri08/21/22 at 2100, Until Discontinued, Low Dose: Bedtime Correction Insulin Bedside glucose should be done within 30-60 minutes of correction insulin administration. BG (mg/dL) Corrective Action LESS than 70 follow Hypoglycemic guidelines, 71-220 NO bedtime correction insulin 221-260 GIVE 1 unit of insulin 261-300 GIVE 2 units of insulin 301-350 GIVE 3 units of insulin Greater than 350 GIVE 4 units of insulin and notify physician 2027 (Not Administered - Provider: Evelia Soto LPN - Reason: Per Administration Instructions) 2099 ($ Given - Provider: Evelia Soto LPN) insulin aspart (NovoLOG) pen 0-6 Units 0-6 Units, Subcutaneous, 3 TIMES DAILY WITH MEALS, First dose on Fri08/21/22 at 1200, Until Discontinued, Low Dose: Correction Insulin Bedside glucose should be done within 30-60 minutes of correction insulin administration. BG (mg/dL) Corrective Action LESS than 70: follow Hypoglycemic guidelines, 70-180: NO Correction insulin, 181-220: GIVE 2 units of insulin, 221-260: GIVE 3 units of insulin, 261-300: GIVE 4 units of insulin, 301-350: GIVE 5 units of insulin, Greater than 350: GIVE 6 units of insulin and notify physician. If the patient is NPO: DO NOT HOLD correction insulin If patient is eating meals and has orders for Mealtime insulin, combine and give at the same time. 0925 (Not Administered - Provider: Yessica Jansen RN - Reason: Per Administration Instructions)1237 (Not Administered - Provider: Chasidy Gallardo RN - Reason: Per Administration Instructions)1642 (Not Administered - Provider: Chasidy Gallardo RN - Reason: Medication not available) 0920 (Not Administered - Provider: Evelyn Carrillo RN - Reason: Per Administration Instructions)1319 (Not Administered - Provider: Leslie Valles RN - Reason: Per Administration Instructions)1916 (Not Administered - Provider: Leslie Valles RN - Reason: See Comments - Comment: patient did not eat.) 0929 (Not Administered - Provider: Mary Gabriel RN - Reason: Per Administration Instructions)1211 (Not Administered - Provider: Michela Lorenzo RN - Reason: Per Administration Instructions) insulin aspart (NovoLOG) pen 5 Units (CANCELED) 5 Units, Subcutaneous, 3 TIMES DAILY WITH MEALS, First dose on Fri08/22/22 at 0845, Until Discontinued, MEALTIME INSULIN Hold MEALTIME insulin if patient is NPO or eating less than 50% of meals. -OR- if carb intake for the meal is less than 30 grams. May be given immediately before meal, during meal, or immediately after meal is eaten. Meal must be present before administration. Combine mealtime dose and correction insulin dose if needed into one injection. 0925 (Not Administered - Provider: Yessica Jansen RN - Reason: Per Administration Instructions)1237 (Not Administered - Provider: Chasidy Gallardo RN - Reason: Per Administration Instructions)1814 ($ Given - Provider: Chasidy Gallardo RN) 0924 ($ Given - Provider: Evelyn Carrillo RN)1319 ($ Given - Provider: Leslie Valles, RN)1916 (Not Administered - Provider: Leslie Valles, RN - Reason: See Comments - Comment: patient did not eat) insulin aspart (NovoLOG) pen 7 Units 7 Units, Subcutaneous, 3 TIMES DAILY WITH MEALS, First dose (after last modification) on 08/25/22 at 0800, Until Discontinued, MEALTIME INSULIN Hold MEALTIME insulin if patient is NPO or eating less than 50% of meals. -OR- if carb intake for the meal is less than 30 grams. May be given immediately before meal, during meal, or immediately after meal is eaten. Meal must be present before administration. Combine mealtime dose and correction insulin dose if needed into one injection. 0940 ($ Given - Provider: Mary Gabriel RN)1356 (Not Administered - Provider: Michela Lorenzo RN - Reason: See Comments - Comment: Patient not planning to eat lunch before d/c) insulin glargine (Lantus) pen 10 Units (CANCELED) 10 Units, Subcutaneous, AT BEDTIME, First dose (after last modification) on [facility] 08/22/22 at 2100, Until Discontinued, Consider calling physician for *dose reduction* if patient is made NPO or if TPN/PPN/tube feeding is held. DO NOT HOLD even if patient is NPO. . WASTE DISPOSAL INSTRUCTIONS: Black Bin Disposal required. 2028 ($ Given - Provider: Evelia Soto LPN) 2100 ($ Given - Provider: Evelia Soto LPN) insulin glargine (Lantus) pen 15 Units 15 Units, Subcutaneous, AT BEDTIME, First dose (after last modification) on 08/25/22 at 2100, Until Discontinued, Consider calling physician for *dose reduction* if patient is made NPO or if TPN/PPN/tube feeding is held. DO NOT HOLD even if patient is NPO. . WASTE DISPOSAL INSTRUCTIONS: Black Bin Disposal required. magnesium sulfate 2 g in 50 mL bolus (COMPLETED) 2 g, at 25 mL/hr, Administer over 120 Minutes, Intravenous, ONCE, 1 dose, On Fri08/23/22 at 0600, Infuse at 1 gm/hr 0600 ($ New Bag/Syringe - Provider: Lulú Ku, RN)0925 (Stopped - Provider: Yessica Jansen RN) potassium chloride oral solution 40 mEq (COMPLETED) 40 mEq, Oral, ONCE, 1 dose, On Fri08/23/22 at 0600, Dilute each 15 mL with at least 3 ounces of liquid 0559 ($ Given - Provider: Lulú Ku RN) PRN Medication Order 08/23/2022 08/24/2022 08/25/2022 0.9% NaCl injection 1-10 mL(Linked Group 1) 1-10 mL, Intracatheter, PRN, Other, peripheral line flush, Starting on Fri08/21/22 at 0815, Until Fri08/25/22 at 1845, Flush peripheral IV catheter with 1-10 mL of normal saline before and after medications and prn to clear blood from the line or to verify patency. dextrose 10 % IV bolus(Linked Group 2) 12.5 g, at 468.75 mL/hr, Intravenous, PRN, Other, Bedside Glucose less than 70 mg/dL -If NOT able to eat and/or NPO and with IV Access, Starting on [facility] 08/22/22 at 0807, Until Fri08/25/22 at 1845, If NOT able to eat and/or NPO [...] NPO and with IV Access, Starting on [facility] 08/22/22 at 0807, Until Fri08/25/22 at 1845, If NOT able to eat and/or NPO [...] NPO and withOUT IV Access, Starting on [facility] 08/22/22 at 0807, Until 08/25/22 at 1845, If NOT able to eat and/or NPO and NO IV Access: For Bedside glucose 54-69 mg/dL - Give 1 mg SQ For Bedside Glucose LESS than 54 mg/dl - verify with a second bedside glucose (from a different site) - Give 1 mg SQ Re-check and Re-treat blood glucose EVERY 10-25 minutes until blood glucose GREATER than or equal to 80 mg/dl. NOTIFY PROVIDER OF HYPOGLYCEMIC EVENT. Reconstitute vial with 1 mL of sterile water for injection for a final concentration of 1 mg/mL; shake vial gently; use immediately and discard unused portion glucose chew tablet 4 tablet 4 tablet (16 g), Oral, PRN, Other, Bedside Glucose less than 70 mg/dL -If able to eat and does not have swallowing difficulties, Starting on Fri08/21/22 at 0952, Until 08/25/22 at 1845, If able to eat and does not [...] for choices). NOTIFY PROVIDER OF HYPOGLYCEMIC EVENT. glucose chew tablet 4 tablet 4 tablet (16 g), Oral, PRN, Other, Bedside Glucose less than 70 mg/dL -If able to eat and does not have swallowing difficulties, Starting on [facility] 08/22/22 at 0807, Until 08/25/22 at 1845, If able to eat and does not [...] for choices). NOTIFY PROVIDER OF HYPOGLYCEMIC EVENT. Linked Groups Order Group 1: SALINE LOCK, INSERT AND MAINTAIN (CANCELED) Routine, CONTINUOUS, Starting on Fri08/21/22 at 0830, Until Specified, New collection And 0.9% NaCl injection 3 mLJump to med 3 mL, Intracatheter, EVERY 8 HOURS, First dose on Fri08/21/22 at 0900, Until Discontinued, Flush peripheral IV catheter with 3 mL of normal saline every 8 hours. And 0.9% NaCl injection 1-10 mLJump to med 1-10 mL, Intracatheter, PRN, Other, peripheral line flush, Starting on [facility] 08/21/22 at 0815, Until [place] 08/25/22 at 1845, Flush peripheral IV catheter with 1-10 mL of normal saline before and after medications and prn to clear blood from the line or to verify patency. Group 2: dextrose 10 % IV bolusJump to med 12.5 g, at 468.75 mL/hr, Intravenous, PRN, Other, Bedside Glucose less than 70 mg/dL -If NOT able to eat and/or NPO and with IV Access, Starting on [facility] 08/22/22 at 0807, Until [place] 08/25/22 at 1845, If NOT able to eat and/or NPO [...] NPO and with IV Access, Starting on [facility] 08/22/22 at 0807, Until [place] 08/25/22 at 1845, If NOT able to eat and/or NPO [...]
--- OUTSIDE RECORDS SUMMARY | 2024-11-17 03:04 | XMS_ITS | Encounter Summary ---
Author Organization [facility] [employer] Address [address] [place] [address] Care Team Providers Care Sawmill Production Worker Name Role Phone Unavailable Primary Care Provider [...] Expiration Date Visits Re quested Visits Authorized [id number] 1 1 Encounter Details Date Type Department Care Team (Late st Contact Info) Description 12/05/2022 1:35 PM ORDNANCE KEEPER - 12/05/2022 3:40 PM ORDNANCE KEEPER Surgery [facility] [address] [place] [address] Graeme Rodgers MD [facility] 2L [place] [address] AMPUTATION ABOVE LEFT KNEE Surgery Details Date/Time Status Location OR Service Patient Class Case Class Case Type Trauma Case? 12/05/2022 1:35 PM Posted [facility] OR Hybrid OR 2 Vascular Inpatient Work Ins >24 Hrs to 5 Days Panel 1 Procedure LRB Anes Op Region Wound Class Comments AMPUTATION ABOVE LEFT KNEE Left General Fady an Contaminated Surgeon Surgeon Role Service Panel Graeme Rodgers MD Primary Vascular 1 Tyrel Gilliam MD Resident - Assisting Vascular 1 Special Needs KW 12/04 documented in this encounter Social History Tobacco [...] and heating? Not hard at all 12/03/2022 [facility] [place] of Occupat ional Health - Occupational Stress [...] slept in a usp (including now)? No 12/03/2022 Sex and Gender Information Value Date Recorded Sex Assigned at Not on file Gender Identity Not on file Sexual Orientation Not on file documented as of this encounter Last Filed Vital Signs Vital Sign Reading Time Taken Comments Blood Pressure 119/69 12/05/2022 8:09 AM ORDNANCE KEEPER Pulse 90 12/05/2022 1:42 PM ORDNANCE KEEPER Temperature 36.7 ??C (98 ??F) 12/05/2022 8:09 AM ORDNANCE KEEPER Respiratory Rate 24 12/05/2022 1:42 PM ORDNANCE KEEPER Oxygen Saturation 90% 12/05/2022 1:42 PM ORDNANCE KEEPER Inhaled Oxygen Concentration - - Weight 156.9 kg (346 lb) 12/05/2022 4:30 AM ORDNANCE KEEPER Height 170.2 cm (5' 7 ) 12/02/2022 5:31 PM ORDNANCE KEEPER Body Mass Index 48.55 12/02/2022 5:31 PM ORDNANCE KEEPER documented in this encounter Functional Status Functional [...] encounter Discharge Summaries * Rosi Menard V., SUPERVISOR ASSEMBLY-CAPTAIN OF GUARDS - 12/12/2022 8:09 AM CST Hospital Discharge Summary Patient ID: Leeroy Canales [id number] 32 year old 1990 Admit date: 12/02/2022 [...] retention ( resolved). Patient was discharged to [facility] on 12/12/2022 in stable condition Consults: ID, Psychiatry, Vascular surgery, simulation educator, nutrition Pending Labs and Studies: none [...] and situation. Good mood, appropriate affect. Disposition: [facility] facility Patient Instructions: Medication List START taking [...] MG tablet Generic drug: ferrous sulfate nystatin 495016 UNIT/GM powder Commonly known as: Mycostatin Apply to affected area 3 times daily ONETOUCH DELICA PLUS 33G EXTRA FINE LANCET USE ONE LANCET TO PRICK FINGER FOUR TIMES DAILY FOR BLOOD GLUCOSE TESTING OneTouch Verio Reflect w/Device Kit Use 1 kit 4 times daily USE METER TO CHECK BLOOD GLUCOSE FOUR TIMES DAILY Reasons: CALL [facility] [id number] OneTouch Verio test strip Generic drug: [...] Your Medications These medications were sent to [facility] [address] [facility] [address] [facility] [address] ?? Alcohol Prep 70 % ?? ONETOUCH [...] ?? furosemide 40 MG tablet ?? nystatin 926096 UNIT/GM powder ?? potassium chloride ER 20 MEQ tablet Follow-up Information Graeme Rodgers MD . Specialty: Vascular Surgery Contact information: [address] [place] [address] 2L DIV OF VASCULAR SURGERY [facility] [address] Graeme Rodgers MD . Specialty: Vascular Surgery Contact information: [address] [place] [address] 2L DIV OF VASCULAR SURGERY [facility] [address] Follow up with provider . Follow up [...] on 12/12/2022 If you need to call [facility] for any reason, you may reach us at [phone] and dial 0 for the pit hoist operator. PROBLEM LIST: Patient Active Problem List: Type II or unspecified type diabetes mellitus without mention of complication, not stated as uncontrolled ([facility]) Intentional overdose of drug in tablet form ([facility]) Severe recurrent major 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 psychotic features ([facility]) PTSD (post-traumatic stress disorder) CHF (congestive heart failure) ([facility]) Left foot infection Hypoxia Essential hypertension [...] surgery / 1:15 PM Graeme Rodgers MD [facility] 2L [id number] [facility] It is essential that you keep all of your follow-up appointments and go to your doctors appointments as scheduled. If a follow-up with your primary care provider has not been scheduled, you need to schedule an appointment tofollow-up on your hospitalization. If there is a conflict, please call the clinic ahead of time and reschedule the appointment. Thanks! Internal Medicine Department [address] [address] If you develop symptoms of increased sadness, poor sleeping, anger or anxiety, talk with your primary care doctor. You can consider therapy as well. It is not uncommon for people to develop PTSD following a major medical illness. 1. [facility] a. New literacy coordinator: tel:[phone] b. They offer outpatient and intensive outpatient programs c. Website: https://[facility]/gkltxjyp-wca-avuqqbhy/ivvrhlqyvri-wajsfclh-xnozndg-program/ 2. [facility] [place] a. The Psychological Services Center charges on [...] and psychotherapy: $10 to $65 c. The [facility] is not eligible for Medicaid or Medicare. They can provide youa receipt to submit to your insurance carrier. d. Phone number: [phone]. The part time receptionist will ask you for your contact information and then one of our intake staff, a graduate trainee, will call you for a 20-30 minute telephone interview. 3. [facility] a. Individual, couples, and family counseling. Therapy is provided by doctoral and masters-level students currently in the Medical Family Therapy Program at [facility]. All therapists aresupervised by faculty who are licensed professionals. b. Location: [address] [place] [address] [address], [place] [address] c. Phone number: [phone] d. Email: [email or web address] e. Website: https://www.[facility]/medicine/family-medicine/hkgfha-dvbipgztnf-xonmah-therapy/in dex.php f. Cost: sliding scale fee 4. [facility] offers CBT a. 5. [facility] a. [address] [place] [address] b. Office: [phone] [employer] [address] a. Ayi Laile [address] [place] [address], [address] [place] [address] ? fax [address] [facility]?[place] [address]? To see who accepts your insurance, you can go to [employer] and search based on your insurance and type of therapy. You can email people directly on this site. Other resources: ??? For classes and group therapy: https://[employer]/yusnngs-pku-eclpg-therapy/ o Takes insurance or roman ??? Books and workbooks o Free online: https://www.RentMineOnlinet.nhs.uk/media/2245/mzmycreal-pinw-dil-esuntsol-emdeqez-9076.pdf o https://www.[employer] Direct/Vvhmiohux-Ojzjfkoquq-Dvqqcah-Bisthl-Wptstivq-Awkxkxv/dp/1 523195615 o Cognitive Behavior Therapy, Second Edition: Basics [...] withsocial work and nursing, discussing with family. ANCE KEEPER documented in this encounter Discharge Instructions * Discharge Instructions* Rosi Menard APRN-CNP - 12/08/2022 3:33 PM ORDNANCE KEEPER Leeroy Canales, HOSPITAL COURSE: You were admitted [...] on 12/12/2022 If you need to call [facility] for any reason, you may reach us at [phone] and dial 0 for the pit hoist operator. PROBLEM LIST: Patient Active Problem List: Type II or unspecified type diabetes mellitus without mention of complication, not stated as uncontrolled ([facility]) Intentional overdose of drug in tablet form ([facility]) Severe recurrent major 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 psychotic features ([facility]) PTSD (post-traumatic stress disorder) CHF (congestive heart failure) ([facility]) Left foot infection Hypoxia Essential hypertension [...] surgery / 1:15 PM Graeme Rodgers MD [facility] 2L [id number] [facility] It is essential that you keep all of your follow-up appointments and go to your doctors appointments as scheduled. If a follow-up with your primary care provider has not been scheduled, you need to schedule an appointment tofollow-up on your hospitalization. If there is a conflict, please call the clinic ahead of time and reschedule the appointment. Thanks! Internal Medicine Department [facility] [address] [place], [place] [id number] If you develop symptoms of increased sadness, poor sleeping, anger or anxiety, talk with your primary care doctor. You can consider therapy as well. It is not uncommon for people to develop PTSD following a major medical illness. [facility] New literacy coordinator: tel:[phone] They offer outpatient and intensive outpatient programs Website: https://[facility]/ewwarecl-qhr-vhobichi/wjixykmkndl-sojpfcug-udpdsls-program/ [facility] The Psychological Services Center charges on [...] submit to your insurance carrier. Phone number: [phone]. The part time receptionist will ask you for your contact information and then oneof our intake staff, a graduate trainee, will call you for a 20-30 minute telephone interview. [facility] Individual, couples, and family counseling. Therapy is provided by doctoral and masters-level students currently in the Medical Family Therapy Program at [facility]. All therapists are supervised by faculty who are licensed professionals. Location: [address] [place] [address], [address], [place] [address] Phone number: [phone] Email: [email or web address] Website: https://www.[facility]/medicine/family-medicine/lxgxkb-nvclgotwvx-omzmsp-therapy/in dex.php Cost: sliding scale fee [facility] offers CBT [address] [address] Office: [phone] [employer] [address] [facility] [place] [address] ? fax [address] [facility]?[place] [address]? To see who accepts your insurance, you can go to App Annie and search based on your insurance and type of therapy. You can email people directly on this site. Other resources: For classes and group therapy: https://Haiku [employer]ck/ujmeqzz-itm-axhkt-therapy/ Takes insurance or roman Books and workbooks Free online: https://www.RentMineOnlinet.nhs.uk/media/9869/kypdrexmu-jlda-syc-zemczale-opszwfk-4466.pdf https://www.[employer] Direct/Itxajsqpx-Jixxicbgdi-Tkbmnoo-Pmmedm-Gfqeubcj-Rfsbusv/dp/1 559521366 Cognitive Behavior Therapy, Second Edition: Basics and [...] of anxiety and depression. Calm Breath Headspace ANCE KEEPER documented in this encounter Medications at Time [...] daily with meals 08/13/2022 05/09/2023 nystatin (Mycostatin) 458503 UNIT/GM powder Apply to affected area 3 times daily 12/12/2022 08/09/2024 potassium chloride ER (Klor-Con M) 20 MEQ tablet Take 1 (one) tablet by mouth daily with breakfast 12/12/2022 03/02/2024 documented as of this encounter Progress Notes * Ying Ferguson - 12/12/2022 12:55 PM CST This junior technical writer received a request from LORETTA Menard to schedule a follow up appointment with Endocrinology. The patient was called at [phone]. Per the patient, they will schedule their own follow up appointment. No further discharge scheduling needs at this time. Ying Ferguson 12/13/2022 ANCE KEEPER * Justice Charley P - 12/12/2022 12:20 PM CST [facility] Psychiatry Consult Progress Note Leeroy Canales Age: [...] 1855 12/03/22 0943 12/03/22 0242 12/02/22 1953 08/22/227 08/21/22 0846 WBC 12.9* 12.5* 15.1* 19.1* [...] COCAINESCRN, METHADONE, LABPHEN, LABCANN in the last 39016 hours. Other: Blood Alcohol (BAL): No results for input(s): ETOH in the last 48821 hours. Serum Acetaminophen: No results for input(s): ACETAMINO in the last 10342 hours. Serum Salicylate:No results for input(s): SALICYLATE in the last 72167 hours. Radiology Impressions: No results found. EKG: Results for orders placed or performed during the hospital encounter of 12/02/22 EKG 12-LEAD Result Value Ref Range Ventricular Rate 77 BPM Atrial Rate 77 BPM P-R Interval 154 ms QRS Duration ms 88 ms Q-T Interval ms 416 ms QTC Calculation (Bezet) 470 ms Calculated P [place] 44 degrees Calculated R [place] 14 degrees Calculated T [place] 23 degrees Interpretation EKG NORMAL SINUS RHYTHM NORMAL ECG WHEN COMPARED WITH ECG OF 21-aug-2022 NO SIGNIFICANT CHANGE WAS FOUND Confirmed by HIRAL HIGGINS MD ([id number]) on 12/09/2022 1:25:51 PM Assessment: Leeroy Canales [...] Medical Student Year 4 12/12/2022 12:20 PM ANCE KEEPER * Imelda Tejeda RN - 12/12/2022 11:38 AM CST This RN met with Leeroy Canales in [place] [address] and educated patient on purpose of BRIDGE appt. This RN gave patient BRIDGE brochure with this RN's contact number and instructed patient to call for Bridge appt when discharging from [facility]. ANCE KEEPER * Gia Zuleta CPhT - 12/12/2022 10:21 [...] [facility] at [address], First Floor [place], [place] [address] Hours of Operation Friday - Friday: 8:00am to 6:00pm Friday: 9:00am to 1:00pm Epic: [facility] *Ensure the patient and clinic's nearby ZIP codes box is unchecked* ANCE KEEPER * Antony Interiano RN - 12/12/2022 10:12 AM CST Problem: Pain/Discomfort Goal: Patient exhibits reduced pain/discomfort as evidenced by pain scores 12/12/2022 1012 by Antony Interiano RN Outcome: Adequate for Discharge 12/12/202218 by Antony Interiano RN Outcome: Progressing Goal: [...] of daily activities Outcome: Adequate for Discharge ANCE KEEPER * Kimberly Monterroso MSW - 12/12/2022 10:02 AM CST Facility Transfer Note Level of Care: Actual level of care at discharge: Acute Rehab Facility Facility Name: (include name of person confirming admission): Actual discharge provider: [facility]. 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 Win Completed and Signed [id number] (if applicable): n/a Family/Other Notified of Transfer (name/phone): patient notified by rehabilitation center manager Authorization Skilled Care: Authorization for Transportation: Verified Qualifying Stay(Skilled Only): YES Comments: Transfer to rehab via ambulance Name/Phone number: VERONIKA Brooks [phone] ANCE KEEPER * Antony Interiano RN - 12/12/2022 7:18 [...] will meet estimated nutrient needs Outcome: Progressing ANCE KEEPER * Brittney Bell MD - 12/12/2022 6:41 AM CST [facility] Consult Psychiatry Progress Note Leeroy Canales Age: [...] or depressive thoughts. Denied questions/concerns. Collateral GAYE [phone]-[phone]: spoke yesterday Mental Status Exam: Appearance:fairly groomed [...] PRECAUTIONS Patient Seenand staffed with Dr Case ANCE KEEPER Associated attestation - Marko Case MD - 12/12/2022 4:09 PM ORDNANCE KEEPER Attending Attestation: I have seen and evaluated [...] Lulú Mueller - 12/11/2022 2:58 PM CST Track Supervisor had an initial visit with patient, her mother and brother. Patient discussed her illness and hospitalization. Patient expressed no immediate pastoral care needs. Track Supervisor informed her that pastoral care remains available continuously. 613/01 Lulú Mueller 12/11/2022 3:29 PM ANCE KEEPER * Kimberly Monterroso MSW - 12/11/2022 2:34 PM CST SW notified by Graciela that patient has been approved by insurance and will have a bed tomorrow12/12. SW arranged for [facility] crew 12/12 12pm. Med 1 MATCH MARKER notified. VERONIKA Barrios 12/11/2022 [phone] ANCE KEEPER * Charley Justice - 12/11/2022 12:37 PM CST [facility] Psychiatry Consults History and Physical Name: Leeroy Canales Age: [age] year old Date of : 1990 Location: History obtained from: History is obtained from [...] to move in with her sister in [place]. Currently denies depressed mood, sleeping problems, problems with concentration, decreased/increased appetite, SI/thoughts of self harm, AH/VH. Collateral History: None required Home Medications: (information from [facility]) Amlodipine 10 mg QD Carvedilol 12.5 mg BID FeruSul 325 QD Furosemide 20 mg QD Lantus 10 U QHS Insulin 5U TID w/ meals Fluoxetine 20 mg QD Pharmacy: [facility] [address] [place] [address] [phone] Past Psychiatric History: Previous diagnosis: Severe recurrent depression w/o psychotic features, PTSD Psychiatric Hospitalization: 08/2022 Previous suicide attempts: 08/2022 via OD (lasix, amlodipine, iron) Outpatient Psychiatrist/Therapist: None Past Medical History: Past Medical History: Diagnosis Date ??? Type 2 diabetes mellitus without complications ([facility]) Head Injury: None Family Psychiatric History: Suicide: [...] COCAINESCRN, METHADONE, LABPHEN, LABCANN in the last 82566 hours. Other: Blood Alcohol (BAL): No results for input(s): ETOH in the last 79764 hours. Serum Acetaminophen: No results for input(s): ACETAMINO in the last 79480 hours. Serum Salicylate:No results for input(s): SALICYLATE in the last 87441 hours. Radiology Impressions: No results found. EKG: Results for orders placed or performed during the hospital encounter of 12/02/22 EKG 12-LEAD Result Value Ref Range Ventricular Rate 77 BPM Atrial Rate 77 BPM P-R Interval 154 ms QRS Duration ms 88 ms Q-T Interval ms 416 ms QTC Calculation (Bezet) 470 ms Calculated P [place] 44 degrees Calculated R [place] 14 degrees Calculated T [place] 23 degrees Interpretation EKG NORMAL SINUS RHYTHM NORMAL ECG WHEN COMPARED WITH ECG OF 21-aug-2022 NO SIGNIFICANT CHANGE WAS FOUND Confirmed by HIRAL HIGGINS MD ([id number]) on 12/09/2022 1:25:51 PM Impression and Plan: [...] Medical Student Year 4 12/11/2022 2:08 PM ANCE KEEPER * Rosi Menard V., SUPERVISOR ASSEMBLY-CAPTAIN OF GUARDS - 12/11/2022 9:30 AM CST Images from the original note were not included. Hospitalist Daily Progress Note Name: Leeroy Canales Age: [age] year old Room: 3/ Date Admitted: 12/02/2022 Hospital Course: Leeroy Canales [...] Value - Date/Time BACTERIAL VAGINOSIS RAPID TEST [[id number]] (Normal) Collected: 12/06/221819 Lab Status: Final result Specimen: Microbiology from Vaginal Swab Updated: 12/06/22 190 Bacterial Vaginosis Rapid Negative CHLAMYDIA + GC AMPLIFIED PROBE [[id number]] (Normal) Collected: 12/05/22 181 Lab Status: Final result Specimen: Microbiology from Vagina Updated: 12/06/22 0641 Chlamydia Amplified Probe Negative GC Amplified Probe Negative Narrative: Results based on detection/no detection of ribosomal RNA by amplified method. CULTURE BLOOD [[id number]] (Normal) Collected: 12/05/22 170 Lab Status: Final result Specimen: Blood Peripheral Updated: 12/10/22 190 Culture No growth day 5 CULTURE BLOOD [[id number]] Lab Status: No result Specimen: Blood Peripheral CULTURE ANAEROBE [[id number]] (Normal) Collected: 12/03/2226 Lab Status: Final result Specimen: Body Fluid Updated: 12/08/22 0812 Culture No anaerobic organisms isolated CULTURE FLUID+GRAM STAIN [[id number]] (Abnormal) (Susceptibility) Collected: 12/03/2226 Lab Status: Final [...] diffusion test will be performed. CULTURE BLOOD [[id number]] (Abnormal) Collected: 12/02/222031 Lab Status: Final result Specimen: Blood Peripheral Updated: 12/07/221810 Culture Growth of Schaalia turicensis Gram Stain Gram-positive bacilli Narrative: Positive at 34 hrs CULTURE BLOOD [[id number]] (Abnormal) Collected: 12/02/221999 Lab Status: Final result [...] 10 mg q.6 as a p.r.n. for dnqonbiq-jp-cghney pain, - PT/OT( Patient will benefit from [...] Feel free to text page me through Tunii Date of service: 12/11/2022 Attending Physician: Amanda Georges MD ANCE KEEPER * Antony Interiano RN - 12/11/2022 7:18 [...] to allow for safe mobility Outcome: Progressing ANCE KEEPER * Althea Slater RN - 12/11/2022 1:16 [...] found in the flowsheet documentation) Outcome: Progressing ANCE KEEPER * Román Burger RN - 12/10/2022 6:39 PM CST Patient had 3 BMs since morning and was cleaned up, Had c/o hurting her perineum and stump started crying and said I want to go home I'm not getting any medicines for my loose stools Called MATCH MARKER Ute and informed. Pt also complained about breakfast ordered by ostomy care nurse and this RN asked her whether she [...] they were send out of the floor. ANCE KEEPER * Lulú Mueller - 12/10/2022 4:07 PM CST has made multiple attempts to visit patient. Patient has been asleep each time crushing mill operator visited. Pastoral care remains available continuously. 613/01 Lulú Mueller 12/10/2022 4:08 PM ANCE KEEPER * Ying Ferguson - 12/10/2022 1:53 PM CST Discharge pit supervisor received a request from LORETTA Menard to schedule a follow up appointment with Vascular Surgery. Upon reviewing the chart, it should be noted that the patient has an appointment already scheduled with on 12/24/2022 at 1:15pm. No further discharge planning needs at this time. Ying Ferguson 12/10/2022 ANCE KEEPER * Heather Love COTA - 12/10/2022 12:20 PM CST [facility] Physical Medicine and Rehabilitation Occupational Therapy Progress Note Patient: Leeroy Canales Med Record Number: [id number] Date of : 1990 Age: [age] year [...] of 2 and while maintaining WB precautions Tooling Mechanic Goal(s): Patient to discharge to appropriate next [...] , with call light within reach, with RNRomán aware, with therapy cues visible on white board. ANCE KEEPER * Aide Sutton RD/BARI - 12/10/2022 12:01 [...] AKA 12/05; TTF 12/04. Wound vac removed 2/5. Reported PO intake is 70-100% of meals [...] plan for AKA Estimated Energy Needs: KCAL: 2682-8863 (30-35 kcal/kg IBW) wound Protein (g): 95 [...] Progress: Continue with current goal [id number] [id number] ANCE KEEPER * Kimberly Monterroso MSW - 12/10/2022 11:53 AM CST PADMINI continues to follow. Kenia is working to request auth from [place]. She asked about possible psych eval for patient due to h/o MDD and new amputation. SW contacted [facility] 1 MATCH MARKER who agreed to order eval. VERONIKA Barrios 12/10/2022 [phone] ANCE KEEPER * Román Burger RN - 12/10/2022 11:02 [...] will meet estimated nutrient needs Outcome: Progressing ANCE KEEPER * Neelam Brown PT - 12/10/2022 10:48 AM CST [facility] Physical Medicine and Rehabilitation Physical Therapy Progress Note Patient: Leeroy Canales Med Record Number: [id number] Date of : 1990 Age: [age] year [...] 2 to scoot up in bed Modified [place]: EDUCATION: While performing PT, Patient was instructed [...] to/from chair??with maximal assist and X 1 Care Home Goal(s): Patient to discharge to appropriate next [...] in bed, with call light within reach. ANCE KEEPER * Rosi Menard V., SUPERVISOR ASSEMBLY-CAPTAIN OF GUARDS - 12/10/2022 8:35 AM CST Images from the original note were not included. Hospitalist Daily Progress Note Name: Leeroy Canales Age: [age] year old Room: [facility] Date Admitted: 12/02/2022 Hospital Course: Leeroy Canales [...] CL mmol/L 112* 113* 112* CO2 mmol/L 22 BUN mg/dL 20 24 27* CREATININE [...] Value - Date/Time BACTERIAL VAGINOSIS RAPID TEST [[id number]] (Normal) Collected: 12/06/22 1820 Lab Status: Final result Specimen: Microbiology from Vaginal Swab Updated: 12/06/22 190 Bacterial Vaginosis Rapid Negative CHLAMYDIA + GC AMPLIFIED PROBE [[id number]] (Normal) Collected: 12/05/22 1819 Lab Status: Final result Specimen: Microbiology from Vagina Updated: 12/06/22 0641 Chlamydia Amplified Probe Negative GC Amplified Probe Negative Narrative: Results based on detection/no detection of ribosomal RNA by amplified method. CULTURE BLOOD [[id number]] (Normal) Collected: 12/05/22 1704 Lab Status: Preliminary result Specimen: Blood Peripheral Updated: 12/07/22 1901 Culture No growth CULTURE BLOOD [[id number]] Lab Status: No result Specimen: Blood Peripheral CULTURE ANAEROBE [[id number]] (Normal) Collected: 12/03/22 0027 Lab Status: Final result Specimen: Body Fluid Updated: 12/08/22 0812 Culture No anaerobic organisms isolated CULTURE FLUID+GRAM STAIN [[id number]] (Abnormal) (Susceptibility) Collected: 12/03/22 0027 Lab Status: [...] diffusion test will be performed. CULTURE BLOOD [[id number]] (Abnormal) Collected: 12/02/222031 Lab Status: Final result Specimen: Blood Peripheral Updated: 12/07/22 181 Culture Growth of Schaalia turicensis Gram Stain Gram-positive bacilli Narrative: Positive at 34 hrs CULTURE BLOOD [[id number]] (Abnormal) Collected: 12/02/221999 Lab Status: Final result Specimen: Blood Peripheral Updated: 12/09/22 1840 Culture Growth of Schaalia turicensis Gram Stain Gram-positive bacilli Gram-positive cocci Narrative: Positive at 57 hours 33 minutes Problem list: Intentional overdose of drug in tablet form ([facility]) POA: Unknown Severe recurrent major depression [...] 10 mg q.6 as a p.r.n. for mzlljxim-dj-wbcrfn pain, - PT/OT( Patient will benefit from [...] Feel free to text page me through Tunii Date of service: 12/10/2022 Attending Physician: Amanda Georges MD ANCE KEEPER * Kimberly Monterroso MSW - 12/09/2022 4:15 PM CST New Facility Placement Referral source: PT/OT Date of referral: 12/09/22 Admitted from: home Special Needs: new AKA Patient Goal (short term and termite control servicer): short term Level of Care (SNF/Medicaid NH/Rehab/Care Home Care/LTACH): acute rehab Spoke with (Phone number, if not patient. Family participation encouraged): patient Family Contacted: No List of facilities provided (patient preference and geographic preference): Yes Referrals initiated: Continued Care and Services - Admitted Since 12/02/2022 Destination Service Provider Request Status Selected Services Address Phone Fax Patient Preferred [facility]. Acute Rehab Pending - Request Sent N/A [address] [facility] [phone] -- If Medicare-3 day qualifying stay verified: No monitoring facility responses Comments: Patient prefers [facility] from list of facilities provided. SW notified Anabel/KELVINI of referral. Name: VERONIKA Brooks Phone: [phone] ANCE KEEPER * Ying Ferguson - 12/09/2022 3:42 PM CST Discharge Soldering Machine Feeder received request from Dr. Bladimir Chandra to arrange follow-up appointment for Patient with Vascvular. This junior technical writer called [phone] and spoke with Roxanna. Soldering Machine Feeder was able to obtain follow-up appointment for Patient with Dr. machado on Saturday December 24, 2022 at 1:15 pm. No further follow-up needs from pit supervisor indicated at this time. Ying Ferguson, Discharge Soldering Machine Feeder 12/09/2022 ANCE KEEPER * Román Burger, JIMMIE - 12/09/2022 11:31 AM CST Problem: Pain/Discomfort [...] found in the flowsheet documentation) Outcome: Progressing ANCE KEEPER * Rosi Menard V. SUPERVISOR ASSEMBLY-CAPTAIN OF GUARDS - 12/09/2022 8:30 AM CST Images from [...] Value - Date/Time BACTERIAL VAGINOSIS RAPID TEST [[id number]] (Normal) Collected: 12/06/22 1820 Lab Status: Final result Specimen: Microbiology from Vaginal Swab Updated: 12/06/22 190 Bacterial Vaginosis Rapid Negative CHLAMYDIA + GC AMPLIFIED PROBE [[id number]] (Normal) Collected: 12/05/22 1819 Lab Status: Final result Specimen: Microbiology from Vagina Updated: 12/06/22 0641 Chlamydia Amplified Probe Negative GC Amplified Probe Negative Narrative: Results based on detection/no detection of ribosomal RNA by amplified method. CULTURE BLOOD [[id number]] (Normal) Collected: 12/05/22 1704 Lab Status: Preliminary result Specimen: Blood Peripheral Updated: 12/07/22 1901 Culture No growth CULTURE BLOOD [[id number]] Lab Status: No result Specimen: Blood Peripheral CULTURE ANAEROBE [[id number]] (Normal) Collected: 12/03/2226 Lab Status: Final result Specimen: Body Fluid Updated: 12/08/22 0812 Culture No anaerobic organisms isolated CULTURE FLUID+GRAM STAIN [[id number]] (Abnormal) (Susceptibility) Collected: 12/03/2226 Lab Status: Final [...] diffusion test will be performed. CULTURE BLOOD [[id number]] (Abnormal) Collected: 12/02/222031 Lab Status: Final result Specimen: Blood Peripheral Updated: 12/07/22 181 Culture Growth of Amauryalia akinkemkennais Gram Stain Gram-positive bacilli Narrative: Positive at 34 hrs CULTURE BLOOD [[id number]] (Abnormal) Collected: 12/02/221999 Lab Status: Preliminary result Specimen: Blood Peripheral Updated: 12/08/22 1843 Culture Culture in progress Growth of Schaalia [...] 10 mg q.6 as a p.r.n. for wniizpnc-jp-oekfhc pain, Dilaudid 0.2 mg q.5 hours p.r.n. [...] Feel free to text page me through Tunii Date of service: 12/09/2022 Attending Physician: Branden Galindo MD ANCE KEEPER * Jennifer Quinteros RN - 12/08/2022 7:39 [...] to allow for safe mobility Outcome: Progressing ANCE KEEPER * Jenifer Duenas MD - 12/08/2022 12:32 PM CST Images from the original note were not included. [facility] Infectious Diseases Consultation Patient's Primary Care [...] Data Recent Labs Component Name 12/08/2233012/07/22 0533 12/06/2240012/05/22 1703 WBC 20.0* 20.5* 19.5* 16.8* HGB 7.6* 8.1* 7.6* 6.6* HCT 25.6* 27.3* 25.2* 21.4* PLTCOUNT 562* - 577* 493* Recent Labs Component Name 12/08/2233012/07/22 0534 12/06/22 0401 12/02/22195408/25/2231408/24/224 08/24/22 0725 SODIUM - - - - [...] interval not displayed. Recent Labs Component Name 12/02/22195408/25/2231408/24/22140308/24/22 0725 10/20/31608/21/22 0847 ALBUMIN - 2.0* 2.1* 1.7* - 2.2* ALKPHOS 313* - - - - 87 ALT 38 - - - - 11 AST 47* - - - - 5 TBIL - - - - - 0.3 TPROT - - - - - 5.5* - = values in this interval not displayed. No results for input(s): CDIFFTOXINAB in the last 55074 hours. No results for input(s): SEDRATE in the last 80280 hours. No results for input(s): CK in the last 61073 hours. .No results for input(s): VANCOTROUGH, VANCOPEAK, VANCSERIES in the last 95060 hours. Invalid input(s): VANCORAND Recent Labs Component Name 12/02/22203108/22/22 0317 HGBA1C 6.7* 11.7* Recent Labs Component Name 12/03/22 1659 PHUA 5.0 UROBILINUA Negative RBCUA 11-20* No results for input(s): FERRITIN in the last 42748 hours. Recent Labs Component Name 12/02/22 204 CRP 25.2* No results for input(s): PROCALCITON in the last 02697 hours. Recent Labs Component Name 12/02/22 1955 [...] to Med- 2. Jenifer Duenas MD [facility] infectious Diseases team-2. ANCE KEEPER * Himanshu Chandra MD - 12/08/2022 10:18 AM CST Vascular Surgery Plan of Care -Patient dressing taken down today, photo in media tab. Wound looks appropriate for current POD. -Patient will follow in vascular surgery clinic in 2 weeks (appointment requested) for staple removal. -Vascular surgery to sign off. Himanshu Chandra MD [facility] Vascular Surgery 12/08/2022 10:19 AM ANCE KEEPER * Román Burger RN - 12/08/2022 10:18 [...] found in the flowsheet documentation) Outcome: Progressing ANCE KEEPER * Rosi Menard V., SUPERVISOR ASSEMBLY-CAPTAIN OF GUARDS - 12/08/2022 8:06 AM CST Images from [...] Value - Date/Time BACTERIAL VAGINOSIS RAPID TEST [[id number]] (Normal) Collected: 12/06/22 1820 Lab Status: Final result Specimen: Microbiology from Vaginal Swab Updated: 12/06/22 1900 Bacterial Vaginosis Rapid Negative CHLAMYDIA + GC AMPLIFIED PROBE [[id number]] (Normal) Collected: 12/05/22 1819 Lab Status: Final result Specimen: Microbiology from Vagina Updated: 12/06/22 0641 Chlamydia Amplified Probe Negative GC Amplified Probe Negative Narrative: Results based on detection/no detection of ribosomal RNA by amplified method. CULTURE BLOOD [[id number]] (Normal) Collected: 12/05/22 1704 Lab Status: Preliminary result Specimen: Blood Peripheral Updated: 12/07/22 1901 Culture No growth CULTURE BLOOD [[id number]] Lab Status: No result Specimen: Blood Peripheral CULTURE ANAEROBE [[id number]] (Normal) Collected: 12/03/2226 Lab Status: Final result Specimen: Body Fluid Updated: 12/08/22 0812 Culture No anaerobic organisms isolated CULTURE FLUID+GRAM STAIN [[id number]] (Abnormal) (Susceptibility) Collected: 12/03/2226 Lab Status: Final [...] diffusion test will be performed. CULTURE BLOOD [[id number]] (Abnormal) Collected: 12/02/222031 Lab Status: Final result Specimen: Blood Peripheral Updated: 12/07/22 181 Culture Growth of Schaalia turicensis Gram Stain Gram-positive bacilli Narrative: Positive at 34 hrs CULTURE BLOOD [[id number]] (Abnormal) Collected: 12/02/221999 Lab Status: Preliminary result Specimen: Blood Peripheral Updated: 12/07/22 1610 Culture Culture in progress Growth of Angelesa jakobis Gram Stain Gram-positive bacilli Gram-positive cocci Narrative: [...] 10 mg q.6 as a p.r.n. for rsxzsgwd-qg-mmsqzr pain, Dilaudid 0.2 mg q.5 hours p.r.n. [...] Feel free to text page me through Tunii Date of service: 12/08/2022 Attending Physician: Branden Galindo MD ANCE KEEPER * Jennifer Quinteros RN - 12/07/2022 7:32 [...] safe completion of daily activities Outcome: Progressing ANCE KEEPER * Leigh Meek OT - 12/07/2022 1:09 PM CST [facility] Physical Medicine and Rehabilitation Occupational Therapy Re-assessment Patient: Leeroy Canales Med Record Number: [id number] Date of : 1990 Age: [age] year [...] of 2 and while maintaining WB precautions Tooling Mechanic Goal(s): Patient to discharge to appropriate next [...] light within reach, with family in room. ANCE KEEPER * Adelina Silvestre RN - 12/07/2022 11:52 AM CST Patient received glucose tablet current BG 70. Ordered lunch. Will continue to monitor during shift ANCE KEEPER * Adelina Silvestre RN - 12/07/2022 11:40 AM CST Patients BG 48. Paged Med 1 to inform them of this. Waiting for response. Pt. Was given orange juice. There are no prn orders for low BG for this patient. ANCE KEEPER * Ai Garvin, PT - 12/07/2022 10:23 AM CST [facility] Physical Medicine and Rehabilitation Physical Therapy Initial Re-Evaluation Note Patient: Leeroy Canales Med Record Number: [id number] Date of : 1990 Age: [age] year [...] mention of complication, not stated as uncontrolled ([facility]) Intentional overdose of drug in tablet form ([facility]) Severe recurrent major 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 psychotic features ([facility]) PTSD (post-traumatic stress disorder) CHF (congestive heart failure) ([facility]) Left foot infection Hypoxia Essential hypertension Swelling of left foot Bacteremia due to Gram-positive bacteria Past Medical History: Diagnosis Date ??? Type 2 diabetes mellitus without complications ([facility]) SUBJECTIVE: Subjective: Patient agreeable to PT/OT session. [...] chair with maximal assist and X 1 Tooling Mechanic Goal(s): Patient to discharge to appropriate next [...] family in room, with Adelina SAMUEL aware. ANCE KEEPER * Adelina Silvestre RN - 12/07/2022 9:18 [...] will meet estimated nutrient needs Outcome: Progressing ANCE KEEPER * Rosi Menard APRN-CAPTAIN OF GUARDS - 12/07/2022 8:53 AM CST Images from [...] hours. LFTs: Recent Labs Lab Units 12/02/22 195 AST U/L 47* ALT U/L 38 TBILI mg/dL 1.9* ALB g/dL 0.8* Imaging: No results found. Micro: Microbiology Results (Displays last 21 days for this encounter ONLY) Procedure Component Value - Date/Time BACTERIAL VAGINOSIS RAPID TEST [[id number]] (Normal) Collected: 12/06/22 1820 Lab Status: Final result Specimen: Microbiology from Vaginal Swab Updated: 12/06/22 190 Bacterial Vaginosis Rapid Negative CHLAMYDIA + GC AMPLIFIED PROBE [[id number]] (Normal) Collected: 12/05/22 1819 Lab Status: Final result Specimen: Microbiology from Vagina Updated: 12/06/22 0641 Chlamydia Amplified Probe Negative GC Amplified Probe Negative Narrative: Results based on detection/no detection of ribosomal RNA by amplified method. CULTURE BLOOD [[id number]] (Normal) Collected: 12/05/22 1704 Lab Status: Preliminary result Specimen: Blood Peripheral Updated: 12/06/22 1901 Culture No growth 24 hours CULTURE BLOOD [[id number]] Lab Status: No result Specimen: Blood Peripheral CULTURE ANAEROBE [[id number]] (Normal) Collected: 12/03/22 002 Lab Status: Preliminary result Specimen: Body Fluid Updated: 12/06/22 1354 Culture No anaerobic organisms isolated to date. CULTURE FLUID+GRAM STAIN [[id number]] (Abnormal) (Susceptibility) Collected: 12/03/2226 Lab Status: Final [...] diffusion test will be performed. CULTURE BLOOD [[id number]] (Abnormal) Collected: 12/02/222031 Lab Status: Preliminary result Specimen: Blood Peripheral Updated: 12/05/22 1220 Gram Stain Gram-positive bacilli Narrative: Positive at 34 hrs CULTURE BLOOD [[id number]] (Abnormal) Collected: 12/02/221999 Lab Status: Preliminary result [...] 10 mg q.6 as a p.r.n. for ubistxuu-mt-xwaadk pain, Dilaudid 0.2 mg q.5 hours p.r.n. [...] Feel free to text page me through Tunii Date of service: 12/07/2022 Attending Physician: Branden Galindo MD ANCE KEEPER * Felipe Bishop Jr., PharmD - 12/07/2022 [...] Value - Date/Time BACTERIAL VAGINOSIS RAPID TEST [[id number]] (Normal) Collected: 12/06/22 182 Lab Status: Final result Specimen: Microbiology from Vaginal Swab Updated: 12/06/22 190 Bacterial Vaginosis Rapid Negative CHLAMYDIA + GC AMPLIFIED PROBE [[id number]] (Normal) Collected: 12/05/22 1819 Lab Status: Final result Specimen: Microbiology from Vagina Updated: 12/06/22 0641 Chlamydia Amplified Probe Negative GC Amplified Probe Negative Narrative: Results based on detection/no detection of ribosomal RNA by amplified method. CULTURE BLOOD [[id number]] (Normal) Collected: 12/05/22 170 Lab Status: Preliminary result Specimen: Blood Peripheral Updated: 12/06/22 190 Culture No growth 24 hours CULTURE BLOOD [[id number]] Lab Status: No result Specimen: Blood Peripheral CULTURE ANAEROBE [[id number]] (Normal) Collected: 12/03/2226 Lab Status: Preliminary result Specimen: Body Fluid Updated: 12/06/22 1354 Culture No anaerobic organisms isolated to date. CULTURE FLUID+GRAM STAIN [[id number]] (Abnormal) (Susceptibility) Collected: 12/03/2226 Lab Status: Final [...] diffusion test will be performed. CULTURE BLOOD [[id number]] (Abnormal) Collected: 12/02/222031 Lab Status: Preliminary result Specimen: Blood Peripheral Updated: 12/05/22 1220 Gram Stain Gram-positive bacilli Narrative: Positive at 34 hrs CULTURE BLOOD [[id number]] (Abnormal) Collected: 12/02/221999 Lab Status: Preliminary result [...] stable and therapy is to be continued termite control servicer Monitoring: Will obtain a random vancomycin level about 36 hours after the dose given today and re-dose if appropriate. Will continue to monitor patient's renal function. Please contact the [facility] pharmacy department ([phone]) with any questions. Felipe Bishop Jr., PharmD 12/07/2022 7:12 AM Resources: Vancomycin Protocol ANCE KEEPER * Jennifer Quinteros RN - 12/06/2022 7:45 PM CST Problem: Pain/Discomfort Goal: Patient exhibits reduced pain/discomfort as evidenced by pain scores Outcome: Progressing Problem: Fall Risk Goal: Fall risk and fall related injury risk are minimized (interventions related to the fall risk can be found in the flowsheet documentation) Outcome: Progressing ANCE KEEPER * Sumi Rose RN - 12/06/2022 11:49 [...] Continue to monitor. Sumi Rose RN, BSN Motor Equipment Commanding Officer [phone] ANCE KEEPER * Román Burger RN - 12/06/2022 10:07 [...] found in the flowsheet documentation) Outcome: Progressing ANCE KEEPER * Tyrel Gilliam MD - 12/06/2022 8:06 [...] input(s): PT, PTT, INR in the last 15195 hours. 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 recovering. pain adequately controlled. -continue left above-knee amputation wound vacuum -will examine amp site 2 -remainder of care per primary Tyrel Gilliam MD Division of Vascular Surgery, PGY-3 12/06/2022 8:08 AM ANCE KEEPER * Leigh Lauren PA - 12/06/2022 7:16 [...] Intentional overdose of drug in tablet form ([facility]) 08/21/2022 Priority: Not Prioritized Resolved Hospital Problems No resolved problems to display. 24H/S: Patient underwent L AKA yesterday, states that associated pain is controlled. 5/10 in severity. Shedid take her antidepressant this [...] mention of complication, not stated as uncontrolled ([facility]) Intentional overdose of drug in tablet form ([facility]) Severe recurrent major 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 psychotic features ([facility]) PTSD (post-traumatic stress disorder) CHF (congestive heart failure) ([facility]) Left foot infection Hypoxia Essential hypertension [...] GPB, GPCs. Blood cultures from 12/02 - 22 growing GPB, 1/2 growing GPC - ID [...] (From admission, onward) Ordered Start Stop 12/03/22 07 heparin injection 7,500 Units 7,500 Units, Subcutaneous, 3 TIMES DAILY 12/03/22 0800 -- VTE Mechanical Prophylaxis Orders (From admission, onward) Ordered Start 12/03/22 07 SEQUENTIAL COMPRESSION DEVICE (IMPLEMENT) CONTINUOUS Start Time: 12/03/22729 Order ID: [id number] Status: Sent 12/03/22729 PT/OT Consulted Yes Diet DIETARY NUTRITION SUPPLEMENTS DIET DIABETIC CONSIST CARB Consult(s) IP CONSULT TO WOUND NURSE IP CONSULT TO GENERAL SURGERY IP CONSULT TO NUTRITIONAL SERV IP CONSULT TO WOUND NURSE IP CONSULT TO PROSTHETICS IP CONSULT TO INFECTIOUS DISEASES PCP No primary care provider on file. Code Full Code DC Dispo Inpatient TOÑITO Espinal Pager [phone] (monitored [phone] on working days only) Date of service: 12/06/2022 Attending Physician: Branden Galindo MD ANCE KEEPER * Jennifer Quinteros RN - 12/06/2022 6:44 AM CST Pt has refused her vaginal swab,says she does not want it to be done now,she says later ANCE KEEPER * Radha García DO - 12/05/2022 9:53 [...] care Radha García DO 12/05/2022 9:53 PM ANCE KEEPER * Jennifer Quinteros RN - 12/05/2022 9:29 [...] will meet estimated nutrient needs Outcome: Progressing ANCE KEEPER * Tyrel Gilliam MD - 12/05/2022 4:12 PM CST Vascular Surgery Plan of Care Note left lower extremity wound vacuum and dressing to remain in place until post op day #3 after left above-knee amputation. will be removed by vascular surgery. -non-weight bearing left lower extremity -prosthetics consult placed Tyrel Gilliam MD Division of Vascular Surgery, PGY-3 12/05/2022 4:52 PM ANCE KEEPER * Kimberly Monterroso MSW - 12/05/2022 3:27 PM CST SW notified of PT/OT recs for rehab. Patient currently off the floor in OR, will need new therapy recs following surgery. VERONIKA Barrios 12/05/2022 [phone] ANCE KEEPER * Lexus Bright, PharmD - 12/05/2022 2:46 [...] level is ordered to be drawn tomorrow, 2/3, at 1500. Will continue to monitor patient's renal function. Please contact the [facility] pharmacy department ([phone]) with any questions. Lexus Bright, EliezerD 12/05/2022 2:25 PM Resources: Vancomycin Protocol ANCE KEEPER * Leigh Meek OT - 12/05/2022 2:36 PM CST [facility] Department of Physical Medicine & Rehabilitation Progress Note Patient: Leeroy Canales Med Record Number: [id number] Date of : 1990 Age: [age] year old 12/05/22 1400 Therapy on Hold Therapy on Hold Chart Reviewed;Surgery;New Order Required for Therapy ANCE KEEPER * Amie Rodriguez RN - 12/05/2022 1:47 PM CST Very painful to patient with cleaning, has piercing . ANCE KEEPER * Lee Gil, PT - 12/05/2022 1:23 PM CST [facility] Department of Physical Medicine & Rehabilitation Progress Note Patient: Leeroy Canales Med Record Number: [id number] Date of : 1990 Age: [age] year old 12/05/22 1323 Therapy on Hold Therapy on Hold Surgery;New Order Required for Therapy;Chart Reviewed Pt to OR under GA. Per PMR protocol new PT orders are required for continued treatment. ANCE KEEPER * Román Burger RN - 12/05/2022 11:12 AM CST Problem: Fall Risk Goal: Fall risk and fall related injury risk are minimized (interventions related to the fall risk can be found in the flowsheet documentation) Outcome: Progressing Problem: Nutrient: Increased nutrient needs (specify) Goal: Total intake will meet estimated nutrient needs Outcome: Progressing ANCE KEEPER * Keila Reynaga DO - 12/05/2022 7:31 [...] input(s): PT, PTT, INR in the last 06593 hours. 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 recovering adequately in icu. 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 PTSD (post-traumatic stress disorder) 08/22/2022 Priority: Not Prioritized ??? Intentional overdose of drug in tablet form ([facility]) 08/21/2022 Priority: Not Prioritized Resolved Hospital [...] mention of complication, not stated as uncontrolled ([facility]) Intentional overdose of drug in tablet form ([facility]) Severe recurrent major 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 psychotic features ([facility]) PTSD (post-traumatic stress disorder) CHF (congestive heart failure) ([facility]) Left foot infection Hypoxia Essential hypertension [...] GPB, GPCs. Blood cultures from 12/02 - 22 growing GPB, 1/2 growing GPC - vascular [...] (IMPLEMENT) CONTINUOUS Start Time: 12/03/22729 Order ID: [id number] Status: Sent 12/03/22729 PT/OT Consulted when able; OR for AKA today Diet DIETARY NUTRITION SUPPLEMENTS DIET DIABETIC CONSIST CARB Consult(s) IP CONSULT TO WOUND NURSE IP CONSULT TO GENERAL SURGERY IP CONSULT TO NUTRITIONAL SERV IP CONSULT TO WOUND NURSE IP CONSULT TO PROSTHETICS PCP No primary care provider on file. Code Full Code DC Dispo Inpatient Leigh TOÑITO Lauren Pager [phone] (monitored [phone] on working days only) Date of service: 12/05/2022 Attending Physician: Rafa Patel MD ANCE KEEPER * Joy Rocha RN - 12/05/2022 5:59 [...] Will pass on to day shift RN. ANCE KEEPER * Joy Rocha RN - 12/05/2022 5:12 [...] will meet estimated nutrient needs Outcome: Progressing ANCE KEEPER * Jyo Rocha RN - 12/05/2022 3:58 AM CST Bladder scanned pt per order. Volume of 430 mls noted in bladder. Per order will re scan in 2 hours ANCE KEEPER * Joy Rocha RN - 12/05/2022 3:14 AM CST Pt BG was 368. notified and orders given for q4 BG checks and insulin q4. Insulin administered per [facility] ANCE KEEPER * Tyrel Gilliam MD - 12/04/2022 8:50 PM CST Vascular Surgery Plan of Care Note patient scheduled for left above-knee amputation for 12/05. -to operating room for left above-knee amputation -npo@mn; sips with meds -iv maintenance fluids -consent to be obtained -site to be marked -type and screen -chg bath Tyrel Gilliam MD Division of Vascular Surgery, PGY-3 12/04/2022 8:51 PM ANCE KEEPER * Rafa Patel MD - 12/04/2022 4:36 [...] MD General Internal Medicine 12/04/2022 4:36 PM ANCE KEEPER * Neelam Weldon RN - 12/04/2022 2:33 [...] to allow for safe mobility Outcome: Progressing ANCE KEEPER * Eunice Scales RN - 12/04/2022 12:30 PM CST Patient transferred to room 613. All patient belongings with patient. Patient family notified. Report given to RN. All questions answered. ANCE KEEPER * Eunice Scales RN - 12/04/2022 10:58 [...] will meet estimated nutrient needs Outcome: Progressing ANCE KEEPER * Analy Pham PT - 12/04/2022 9:50 AM CST [facility] Physical Medicine and Rehabilitation Physical Therapy Initial Evaluation Note Patient: Leeroy Canales Med Record Number: [id number] Date of : 1990 Age: [age] year [...] ??? Type 2 diabetes mellitus without complications (CMS/FORMERLY [facility]) SUBJECTIVE: Subjective: Patient agreeable to PT evaluation. [...] chair with maximal assist and X 1 Care Home Goal(s): Patient to discharge to appropriate next [...] additional needs at conclusion of PT session. ANCE KEEPER * Anjelica Laird, OT - 12/04/2022 9:47 AM CST [facility] Physical Medicine and Rehabilitation Occupational Therapy Initial Evaluation Note Patient: Leeroy Canales Med Record Number: [id number] Date of : 1990 Age: [age] year [...] moderate assist and while maintaining WB precautions Care Home Goal(s): Patient to discharge to appropriate next [...] RN declined need for chair alarm . ANCE KEEPER * Willard Estrella MD - 12/04/2022 8:10 AM CST MICU Progress Note 12/04/2022 12:15 PM Patient: Leeroy Canales (:1990) Room: [facility] Admit Date: 12/02/2022. Hospital Day: 2 CC: [...] TTF Code Status: Full Willard Estrella MD ANCE KEEPER Associated attestation - Levi Cooper MD - 12/04/2022 5:57 PM ORDNANCE KEEPER Medical ICU Attending Note Date of Service: [...] results for input(s): PT in the last 68869 hours. No results for input(s): INR in the last 57955 hours. Recent Labs Component Name 12/04/22 1605 [...] Intentional overdose of drug in tablet form (CMS/FORMERLY [facility]) POA: Unknown Severe recurrent major 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 psychotic features ([facility]) POA: Unknown PTSD (post-traumatic stress disorder) POA: [...] for determining treatment decisions. Levi Cooper MD Drawer Waxer of Emergency Medicine Division of Pulmonary, Critical Care and Sleep Medicine [facility] * Tyrel Gilliam MD - 12/04/2022 5:12 [...] input(s): PT, PTT, INR in the last 68778 hours. Assessment/Plan: Leeroy Canales is a 32 [...] of Vascular Surgery, PGY-3 12/04/2022 5:14 AM ANCE KEEPER * Imelda Nevarez RN - 12/04/2022 3:04 AM CST Problem: Pain/Discomfort Goal: Patient exhibits reduced pain/discomfort as evidenced by pain scores Outcome: Progressing Goal: Patient uses pharmacological and non-pharmacological pain management strategies. Outcome: Progressing Goal: Patient verbalizes acceptable level of pain relief and ability to engage in desired activity. Outcome: Progressing ANCE KEEPER * Willard Estrella MD - 12/03/2022 11:16 AM CST MICU Progress Note 12/03/2022 11:32 AM Patient: Leeroy Canales (:1990) Room: 301/01 Admit Date: 12/02/2022. Hospital Day: 1 CC: [...] CBC: Recent Labs Component Name 12/03/22 0943 12/03/2224112/02/22195408/22/22316 WBC - 37.1* 42.0* 9.6 HGB 8.2* 6.8* 8.9* 8.1* HCT - 22.3* 28.3* 26.8* BMP: Recent Labs Component Name 12/03/22 02412/02/22195408/25/2231408/24/22 1404 NA 134* 139 - - CL [...] Monitoring Code Status: Full Willard Estrella MD ANCE KEEPER Associated attestation - Levi Cooper MD - 12/04/2022 5:52 PM ORDNANCE KEEPER Medical ICU Attending Note Date of Service: [...] results for input(s): PT in the last 17757 hours. No results for input(s): INR in the last 40220 hours. Recent Labs Component Name 12/04/22 1605 [...] Intentional overdose of drug in tablet form ([facility]) POA: Unknown Severe recurrent major 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 psychotic features ([facility]) POA: Unknown PTSD (post-traumatic stress disorder) POA: [...] for determining treatment decisions. Levi Cooper MD Drawer Waxer of Emergency Medicine Division of Pulmonary, Critical Care and Sleep Medicine [facility] * Masha Finley RN - 12/03/2022 10:23 [...] with nurse Burr. Reconsult for further needs. ANCE KEEPER * Jose Santamaria RN - 12/03/2022 9:53 [...] patient's preference is to stay within the [facility] and its affiliates.: Unsure Comments: CM talked to patient's mom Silvia Resendiz, patient has been living at home with her sisterGaye Beal, needs assistance with mobility. Lives with: Sister Physical Limitations: (Needs assistance with walking) Requires Assistance With: Mobility Insurance: Payer/Plan Subscriber Name Rel Member # Group # [facility]* LEEROY CANALES Self [id number] [address] Readmission: No Readmission Risk: READMISSION RISK SCORE is 15 at 9:54 AM 12/03/2022. Met with: CM talked to patient's mom Silvia Resendiz via phone. Family Support (name and phone): Extended Emergency Contact Information Primary Emergency Contact: Silvia Resendiz Mobile Relation: Mother Capital Markets Specialist needed? No Secondary Emergency Contact: EMIGDIOGAYE Mobile Relation: Sister [employer] Specialist needed? No Patient or technical sales representatives requests care coordination reach out to family or caregiver listed above regarding discharge planning and at time of discharge?Yes Patient/Family provided with list of resources? No Preferred Provider / High Quality Network List given?: No Reason for provider choice: Pt. choice - Pt. choice Equipment at Home: Other (comment) (Pending therapy recommendations) Salmon Gillnet Vessel Operator Referral: Yes Will continue to follow. For any questions or needs please contact: Motor Equipment Commanding Officer Name/Phone number: Jose Santamaria RN BSN [phone] ANCE KEEPER * Jed Clancy PharmD - 12/03/2022 6:52 [...] input(s): VANCORNDM, VANCTROUGH, VANCOPEAK in the last 83010 hours. Assessment/Recommendation: The patient is receiving intermittent doses of vancomycin with next level 12/03 2099. Recommend adjusting regimen based on that level. Please contact the [facility] pharmacy department ([id number]) with any questions. Jed Clancy, PharmD 12/03/2022 6:51 AM Resources: Vancomycin Protocol ANCE KEEPER * Dat Clay MD - 12/03/2022 5:30 [...] input(s): PT, PTT, INR in the last 63156 hours. Assessment/Plan: Leeroy Canales is a 32 [...] team Dat Clay MD 12/03/2022 5:30 AM ANCE KEEPER * Xiang Younger, PharmD - 12/02/2022 10:42 [...] hours) Date/Time Action Medication Dose Rate 12/02/22 1982 $ New Bag/Syringe vancomycin (Vancocin) 2,500 mg [...] contact the [facility] pharmacy department ([id number]) with any questions. Xiang Younger PharmD 12/02/2022 10:39 PM Resources: Vancomycin Protocol ANCE KEEPER * Rafa Newman MD - 12/02/2022 10:34 [...] amputation. Rafa Newman MD 12/02/2022 10:42 PM ANCE KEEPER documented in this encounter H&P Notes * [...] input(s): PT, INR, APTT in the last 97369 hours. Cardiac Markers: Recent Labs Component Name 12/02/221954 TROPONINI 0.023 ABGs: No results for input(s): PHART, PO2ART, XQN1WEB, BEART in the last 05894 hours. Micro: Microbiology Results (Displays last 21 days for this encounter ONLY) Procedure Component Value - Date/Time CULTURE ANAEROBE [[id number]] Collected: 01/31/23 0027 Lab Status: No result Specimen: Body Fluid CULTURE FLUID+GRAM STAIN [[id number]] Collected: 12/03/22 002 Lab Status: No result Specimen: Body Fluid CULTURE BLOOD [[id number]] Collected: 12/02/222031 Lab Status: In process Specimen: Blood Peripheral Updated: 12/02/222035 CULTURE BLOOD [[id number]] Collected: 12/02/221999 Lab Status: In process Specimen: [...] Vitor Mendes MD Internal Medicine, PGY1 Pager ANCE KEEPER Associated attestation - Levi Cooper MD - 12/04/2022 5:51 PM ORDNANCE KEEPER Medical ICU Attending Note Date of Service: [...] results for input(s): PT in the last 15189 hours. No results for input(s): INR in the last 80427 hours. Recent Labs Component Name 12/04/22 1605 [...] 2.3 2.3 2.2 Recent Labs Component Name 12/02/22195408/25/22 0315 08/24/22 1404 08/24/22 0725 08/22/22 0317 [...] Intentional overdose of drug in tablet form ([facility]) POA: Unknown Severe recurrent major 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 psychotic features ([facility]) POA: Unknown PTSD (post-traumatic stress disorder) POA: [...] for determining treatment decisions. Levi Cooper MD Drawer Waxer of Emergency Medicine Division of Pulmonary, Critical Care and Sleep Medicine [facility] documented in this encounter Consult Notes * Austyn Menon RN - 12/12/2022 10:00 AM CSTAssociated Order(s): IP CONSULT TO [employer]PER[employer] Inpatient Station Manager Note Today's Date: 12/12/22 Leeroy Canales is a 32 year old female currently hospitalized. A consult with Diabetes Education was requested due to . Leeroy's needs a glucometer to check blood sugars [...] patient's care. Austyn Menon RN, , GCNS, [facility] Station Manager ANCE KEEPER * Brittney Bell MD - 12/11/2022 12:37 PM CSTAssociated Order(s): IP CONSULT TO PSYCHIATRY [facility] Consult Psychiatry History and Physical Name: Leeroy Canales Age: [age] year old Date of : 1990 Location: [facility] Reason for consult: depression Level of consult: [...] Did not report increased tearfulness. Collateral: GAYE BEAL-[phone]: She last saw her yesterday. She seems [...] Hospitalization: 07/2022 seen by CL service at [facility] after suicide attempt on multiple medications Previous [...] QTC Calculation (Bezet) 470 ms Calculated P [place] 44 degrees Calculated R [place] 14 degrees Calculated T [place] 23 degrees Interpretation EKG NORMAL SINUS RHYTHM NORMAL ECG WHEN COMPARED WITH ECG OF 21-aug-2022 NO SIGNIFICANT CHANGE WAS FOUND Confirmed by HIRAL HIGGINS MD ([id number]) on 12/09/2022 1:25:51 PM TFT: No results for input(s): TSH, T3, T3FREE, T4, T4FREE in the last 09767 hours. A1c: Recent Labs Component Name 12/02/222031 HGBA1C 6.7* EAG 146 Lipid: Recent Labs Component Name 12/02/222032 CHOL 111 TRIG 143 HDL 8* LDLCALC 74 Other: BAL: No results for input(s): ETOH, ETHANOL, ETHANOLCALC in the last 38243 hours. Serum Acetaminophen: No results for input(s): ACETAMINO in the last 39856 hours. Serum Salicylate:No results for input(s): SALICYLATE in the last 39934 hours. Urine Drug Screen: No results for input(s): LABAMPH, AMPHETUR, [id number], LABBARB, BARBITURATUR, LABBENZ, BENZODIAZUR, LABCANN, THCUR, COCAINE, COCAINEUR, COCAINESCRN, METHADONE, METHADONEUR, LABOPIA, OPIATES, OPIOIDS, OPIATESUR, FENTANYL, FENT, FENTUR, FENTURSCN, LABPHEN, PCPUR, JOFZEH9YL in the last 70412 hours. Assessment: Leeroy Canales is a 32 [...] seen by attending tomorrow. Brittney Bell MD ANCE KEEPER Associated attestation - Marko Case MD - 12/11/2022 3:23 PM ORDNANCE KEEPER I have discussed the following case with the resident, Dr. Bell, and agree with their documented assessment and plan. Date of Service: 12/11/2022 Marok Case MD Psychiatry * Jenifer Duenas MD - 12/06/2022 2:24 PM CSTAssociated Order(s): IP CONSULT TO INFECTIOUS DISEASES Images from the original note were not included. [facility] Infectious Diseases Consultation Patient's Primary Care [...] Recent Labs Component Name 12/02/22195408/25/2231408/24/22 14008/24/22 0725 08/22/2231608/21/22 0847 ALBUMIN - 2.0* 2.1* 1.7* - 2.2* ALKPHOS 313* - - - - 87 ALT 38 - - - - 11 AST 47* - - - - 5 TBIL - - - - - 0.3 TPROT - - - - - 5.5* - = values in this interval not displayed. No results for input(s): CDIFFTOXINAB in the last 82565 hours. No results for input(s): SEDRATE in the last 28843 hours. No results for input(s): CK in the last 39109 hours. .No results for input(s): VANCOTROUGH, VANCOPEAK, VANCSERIES in the last 88868 hours. Invalid input(s): WANDA Recent Labs Component Name 12/02/22203108/22/22316 HGBA1C 6.7* 11.7* Recent Labs Component Name 12/03/22 1659 PHUA 5.0 UROBILINUA Negative RBCUA 11-20* No results for input(s): FERRITIN in the last 88117 hours. Recent Labs Component Name 12/02/222040 CRP 25.2* No results for input(s): PROCALCITON in the last 62609 hours. Recent Labs Component Name 12/02/221954 BNP [...] to Med- 2. Jenifer Duenas MD [facility] infectious Diseases team-2 ANCE KEEPER * Meera Gonsalez RD/RAFAEL - 12/03/2022 1:10 [...] Pain affecting intake: No Estimated Needs: KCAL: 4649-7403 (30-35 kcal/kg IBW) wound Protein (g): 95 [...] Goal Progress: New goal established Ascom: 4534 ANCE KEEPER * Graeme Rodgers MD - 12/02/2022 10:31 PM CST Images from the original note were not included. [facility] Vascular Surgery Consult Note Name: Leeroy Canales [...] meal, Disp: 60 tablet, Rfl: 0 ??? TexoSul 325 (65 Fe) MG tablet, Take 325 [...] Labs Component Name 12/02/22195408/25/2231408/24/22 1404 08/24/22 0725 08/23/22 0314 08/22/22316 NA [...] input(s): PROTIME, INR, PTT in the last 27503 hours. No results for input(s): PHART, PO2ART, ZCS6PVZ, BEART in the last 71719 hours. No intake/output data recorded. Imaging: No [...] been seen and discussed with my in assisted living housekeeper and attending physician Dr. Rodgers. Radha García DO Resident Physician [facility] Department of Surgery 12/02/2022 10:31 PM Attending [...] Date of service: 12/02/2022 Graeme Rodgers MD ANCE KEEPER documented in this encounter OR Notes * Brief Op Note - Tyrel Gilliam MD - 12/05/2022 3:05 PM CST Brief Op Note Procedure: AMPUTATION ABOVE LEFT KNEE Patient Name: Leeroy Canales Date of Service: 12/05/2022 Pre-Op Diagnosis: Gangrene Post-Op Diagnosis: left lower extremity infection Surgeon(s) and Role: * Graeme Rodgers MD - Primary * Tyrel Gilliam MD - Resident - Assisting Umbrella Finisher(s): Mynor Vargas MD - resident Anesthesia Type: [...] implants in log * Tyrel Gilliam MD ANCE KEEPER * Operative - Graeme Rodgers MD - [...] above-knee amputation. After discussion of the risks, benefits,and alternatives to the procedure, consent was obtained [...] of service: 12/05/2022 Graeme Rodgers MD CM/hanh .[id number] Doc ID: [id number] Voice Job ID: [id number] ANCE KEEPER * Operative - Graeme Rodgers MD - 12/02/2022 11:39 PM CST Operative Report NAME: LEEROY CANALES : 1990 AGE: 32 PROC DATE: 12/02/2022 SEX: F SURGEON: Rafa Newman MD ATTENDING: Graeme Rodgers M.D. PROFESSOR OF LITERATURE: Rafa Newman M.D., resident physician PREOPERATIVE DIAGNOSIS: [...] Date of service: 12/02/2022 Graeme Rodgers MD ROSYE/sri .[id number] Doc ID: [id number] Voice Job ID: [id number] ANCE KEEPER * Brief Op Note - Rafa Newman MD - 12/02/2022 11:20 PM CST Brief Op Note Procedure: LEFT ANKLE DISARTICULATION LEVEL 2 @ 2220 Patient Name: Leeroy Canales Date of Service: 12/02/2022 Pre-Op Diagnosis: Gangrene (CMS/HCC) [I96] Post-Op Diagnosis: Same Surgeon(s) and Role: * Graeme Rodgers MD - Primary * Rafa Newman MD - Resident - Assisting Umbrella Finisher(s): Anesthesia Type: general ETT Complications: none Findings: Gross purulence to level of ankle, well perfused tissue. Wound left open, dressed with surgicel, betadine soaked Kerlix. EBL: minimal blood loss Urine Output : 0cc IV Fluid Intake: Per anesthesia Drains: * No LDAs found * Specimen(s): * No specimens in log * Implant(s): * No implants in log * Rafa Newman MD ANCE KEEPER documented in this encounter ED Notes * Jeanna Miller RN - 12/02/2022 10:52 PM CST Report given to surgery RN. ANCE KEEPER * Himanshu Espino MD - 12/02/2022 8:26 [...] Patient reports her sister is her main hair clipper power and home health care is not involved. [...] GENERAL SURGERY ??? EKG 12-LEAD ??? Tdap (ljgmlow-jdtuwlywyn-dsvkq pertussis) (Boostrix) (7y+) injection 0.5 mL ??? [...] (has no administration in time range) Tdap (uxjailx-dtgsldliwr-vpauj pertussis) (Boostrix) (7y+) injection 0.5 mL (0.5 [...] Ox: Sat: 94% on RA; Interpretation: WNL radiation monitor: SR, nl rate, no ectopy Consults: [...] and complete. Electronically signed: Dr. Himanshu Espino ANCE KEEPER * Trisha Evans PA-C - 12/02/2022 6:58 PM CST Bed: [facility] Expected date: Expected time: Means of arrival: Comments: Juancho Canales ANCE KEEPER * Harpreet Roth - 12/02/2022 6:56 PM CST Pt present in ED waiting area att. ANCE KEEPER * Teri Oleary RN - 12/02/2022 6:34 PM CST Pt presents with c/o blisters/sores to right foot which is draining clear drainage with foul odor for 1 week. Pedal pulse present. Strong odor present. See media for images. ANCE KEEPER * Harpreet Roth - 12/02/2022 5:36 PM CST Teri, SHIRA, and Toñito Hensley, informed of the pt's O2 saturation. ANCE KEEPER documented in this encounter Miscellaneous Notes * Coding Query - Levi Cooper MD - 12/04/2022 1:23 PM CST DOCUMENTATION CLARIFICATION REQUEST TO: Dr. Cooper FROM: Hiral RAYMUNDO RN CCDS Email: [email or web address] Please clarify and document if the patient [...] organism. Will include this in my documentation. ANCE KEEPER documented in this encounter Plan of Treatment Upcoming Encounters Date Type Department Care Team (Late st Contact Info) Description 11/22/2024 1:30 PM ORDNANCE KEEPER Office Visit [facility] - Infectious Disease [address] [place] [address], [place] [address] Kash Ha MD [address] [place] [id number] Pending Results Name Type Priority Associated Diagnoses Date/Time TRANSFUSE RED BLOOD CELL LEUKOREDUCED UNIT(S), 1 Units NSG BLD TRANSFUSION Routine 12/03/2022 6:10 AM ORDNANCE KEEPER TRANSFUSE RED BLOOD CELL LEUKOREDUCED UNIT(S) NSG BLD TRANSFUSION Routine 12/03/2022 6 :05 AM ORDNANCE KEEPER documented as of this encounter Procedures Procedure Name Priority Date/Time Associated Diagnosis Comments GLUCOSE - POINT OF CARE Routine 12/12/2022 10:29 AM ORDNANCE KEEPER GLUCOSE - POINT OF CARE Routine 12/12/2022 8:51 AM ORDNANCE KEEPER CBC W AUTO DIFFERENTIAL Routine 12/12/2022 1:44 AM ORDNANCE KEEPER BASIC METABOLIC PANEL (CALCIUM TOTAL) Routine 12/12/2022 1:44 AM ORDNANCE KEEPER GLUCOSE - POINT OF CARE Routine 12/11/2022 11:13 PM ORDNANCE KEEPER GLUCOSE - POINT OF CARE Routine 12/11/2022 8:44 PM ORDNANCE KEEPER GLUCOSE - POINT OF CARE Routine 12/11/2022 4:17 PM ORDNANCE KEEPER GLUCOSE - POINT OF CARE Routine 12/11/2022 2:34 PM ORDNANCE KEEPER GLUCOSE - POINT OF CARE Routine 12/11/2022 12:32 PM ORDNANCE KEEPER GLUCOSE - POINT OF CARE Routine 12/11/2022 7:47 AM ORDNANCE KEEPER GLUCOSE - POINT OF CARE Routine 12/11/2022 4:05 AM ORDNANCE KEEPER RBC MORPHOLOGY Routine 12/11/2022 12:20 AM ORDNANCE KEEPER CBC W AUTO DIFFERENTIAL Routine 12/11/2022 12:20 AM ORDNANCE KEEPER BASIC METABOLIC PANEL (CALCIUM TOTAL) Routine 12/11/2022 12:20 AM ORDNANCE KEEPER GLUCOSE - POINT OF CARE Routine 12/10/2022 11:39 PM ORDNANCE KEEPER GLUCOSE - POINT OF CARE Routine 12/10/2022 7:54 PM ORDNANCE KEEPER GLUCOSE - POINT OF CARE Routine 12/10/2022 4:15 PM ORDNANCE KEEPER CARDIAC EKG ORDER 12/10/2022 12: 04 PM ORDNANCE KEEPER GLUCOSE - POINT OF CARE Routine 12/10/2022 11:36 AM ORDNANCE KEEPER GLUCOSE - POINT OF CARE Routine 12/10/2022 8:59 AM ORDNANCE KEEPER GLUCOSE - POINT OF CARE Routine 12/10/2022 5:24 AM ORDNANCE KEEPER GLUCOSE - POINT OF CARE Routine 12/10/2022 12:40 AM ORDNANCE KEEPER DIFFERENTIAL MANUAL Routine 12/10/2022 1 2:36 AM ORDNANCE KEEPER CBC W AUTO DIFFERENTIAL Routine 12/10/2022 12:36 AM ORDNANCE KEEPER BASIC METABOLIC PANEL (CALCIUM TOTAL) Routine 12/10/2022 12:36 AM ORDNANCE KEEPER GLUCOSE - POINT OF CARE Routine 12/09/2022 8:51 PM ORDNANCE KEEPER GLUCOSE - POINT OF CARE Routine 12/09/2022 4:07 PM ORDNANCE KEEPER GLUCOSE - POINT OF CARE Routine 12/09/2022 12:58 PM ORDNANCE KEEPER GLUCOSE - POINT OF CARE Routine 12/09/2022 7:59 AM ORDNANCE KEEPER GLUCOSE - POINT OF CARE Routine 12/09/2022 4:47 AM ORDNANCE KEEPER DIFFERENTIAL MANUAL Routine 12/09/2022 1 :29 AM ORDNANCE KEEPER CBC W AUTO DIFFERENTIAL Routine 12/09/2022 1:29 AM ORDNANCE KEEPER BASIC METABOLIC PANEL (CALCIUM TOTAL) Routine 12/09/2022 1:29 AM ORDNANCE KEEPER GLUCOSE - POINT OF CARE Routine 12/09/2022 12:47 AM ORDNANCE KEEPER GLUCOSE - POINT OF CARE Routine 12/08/2022 9:39 PM ORDNANCE KEEPER GLUCOSE - POINT OF CARE Routine 12/08/2022 5:14 PM ORDNANCE KEEPER VANCOMYCIN LEVEL RANDOM Timed 12/08/2022 12:56 PM ORDNANCE KEEPER GLUCOSE - POINT OF CARE Routine 12/08/2022 11:22 AM ORDNANCE KEEPER GLUCOSE - POINT OF CARE Routine 12/08/2022 7:43 AM ORDNANCE KEEPER GLUCOSE - POINT OF CARE Routine 12/08/2022 4:20 AM ORDNANCE KEEPER DIFFERENTIAL MANUAL Routine 12/08/2022 3 :31 AM ORDNANCE KEEPER CBC W AUTO DIFFERENTIAL Routine 12/08/2022 3:31 AM ORDNANCE KEEPER BASIC METABOLIC PANEL (CALCIUM TOTAL) Routine 12/08/2022 3:31 AM ORDNANCE KEEPER GLUCOSE - POINT OF CARE Routine 12/07/2022 11:50 PM ORDNANCE KEEPER GLUCOSE - POINT OF CARE Routine 12/07/2022 9:25 PM ORDNANCE KEEPER GLUCOSE - POINT OF CARE Routine 12/07/2022 4:53 PM ORDNANCE KEEPER GLUCOSE - POINT OF CARE Routine 12/07/2022 11:51 AM ORDNANCE KEEPER GLUCOSE - POINT OF CARE Routine 12/07/2022 11:29 AM ORDNANCE KEEPER GLUCOSE - POINT OF CARE Routine 12/07/2022 8:00 AM ORDNANCE KEEPER BASIC METABOLIC PANEL (CALCIUM TOTAL) Routine 12/07/2022 5:34 AM ORDNANCE KEEPER VANCOMYCIN LEVEL RANDOM Timed 12/07/2022 5:34 AM ORDNANCE KEEPER DIFFERENTIAL MANUAL Routine 12/07/2022 5 :33 AM ORDNANCE KEEPER CBC W AUTO DIFFERENTIAL Routine 12/07/2022 5:33 AM ORDNANCE KEEPER GLUCOSE - POINT OF CARE Routine 12/07/2022 5:15 AM ORDNANCE KEEPER GLUCOSE - POINT OF CARE Routine 12/07/2022 4:50 AM ORDNANCE KEEPER GLUCOSE - POINT OF CARE Routine 12/07/2022 4:19 AM ORDNANCE KEEPER PREPARE RBC LEUKOREDUCED UNIT Routine 12/07/2022 1:17 AM ORDNANCE KEEPER GLUCOSE - POINT OF CARE Routine 12/07/2022 12:04 AM ORDNANCE KEEPER GLUCOSE - POINT OF CARE Routine 12/06/2022 8:10 PM ORDNANCE KEEPER BACTERIAL VAGINOSIS RAPID TEST Routine 12/06/2022 6:20 PM ORDNANCE KEEPER GLUCOSE - POINT OF CARE Routine 12/06/2022 5:11 PM ORDNANCE KEEPER GLUCOSE - POINT OF CARE Routine 12/06/2022 11:50 AM ORDNANCE KEEPER GLUCOSE - POINT OF CARE Routine 12/06/2022 7:32 AM ORDNANCE KEEPER GLUCOSE - POINT OF CARE Routine 12/06/2022 4:05 AM ORDNANCE KEEPER DIFFERENTIAL MANUAL Routine 12/06/2022 4 :01 AM ORDNANCE KEEPER CBC W AUTO DIFFERENTIAL Routine 12/06/2022 4:01 AM ORDNANCE KEEPER BASIC METABOLIC PANEL (CALCIUM TOTAL) Routine 12/06/2022 4:01 AM ORDNANCE KEEPER GLUCOSE - POINT OF CARE Routine 12/06/2022 12:17 AM ORDNANCE KEEPER GLUCOSE - POINT OF CARE Routine 12/05/2022 8:20 PM ORDNANCE KEEPER CHLAMYDIA + GC AMPLIFIED PROBE Routine 12/05/2022 6:19 PM ORDNANCE KEEPER CULTURE BLOOD Timed 12/05/2022 5:04 PM ORDNANCE KEEPER CBC W/O DIFFERENTIAL STAT 12/05/2022 5:03 PM ORDNANCE KEEPER GLUCOSE - POINT OF CARE Routine 12/05/2022 5:02 PM ORDNANCE KEEPER PATHOLOGY TISSUE Routine 12/05/2022 3:17 PM ORDNANCE KEEPER Gangrene (HCC) AMPUTATION ABOVE-KNEE 12/05/2022 3:05 PM ORDNANCE KEEPER Gangrene (HCC) Special Needs KW 2 HCG URINE QUALITATIVE - POCT (IP) INTERFACED Routine 12/05/2022 1:46 PM ORDNANCE KEEPER HCG URINE QUAL POCT NOTIFICATION STAT 12/05/2022 1:39 PM ORDNANCE KEEPER Preop examination GLUCOSE - POINT OF CARE Routine 12/05/2022 12:22 PM ORDNANCE KEEPER DIFFERENTIAL MANUAL Routine 12/05/2022 1 0:06 AM ORDNANCE KEEPER CBC W AUTO DIFFERENTIAL Routine 12/05/2022 10:06 AM ORDNANCE KEEPER BASIC METABOLIC PANEL (CALCIUM TOTAL) Routine 12/05/2022 10:06 AM ORDNANCE KEEPER VANCOMYCIN LEVEL RANDOM Routine 12/05/2022 10:06 AM ORDNANCE KEEPER GLUCOSE - POINT OF CARE Routine 12/05/2022 8:08 AM ORDNANCE KEEPER GLUCOSE - POINT OF CARE Routine 12/05/2022 2:17 AM ORDNANCE KEEPER GLUCOSE - POINT OF CARE Routine 12/04/2022 11:15 PM ORDNANCE KEEPER GLUCOSE - POINT OF CARE Routine 12/04/2022 8:47 PM ORDNANCE KEEPER GLUCOSE - POINT OF CARE Routine 12/04/2022 5:10 PM ORDNANCE KEEPER BASIC METABOLIC PANEL (CALCIUM TOTAL) Routine 12/04/2022 4:05 PM ORDNANCE KEEPER MAGNESIUM BLOOD Routine 12/04/2022 4:05 PM ORDNANCE KEEPER GLUCOSE - POINT OF CARE Routine 12/04/2022 11:40 AM ORDNANCE KEEPER GLUCOSE - POINT OF CARE Routine 12/04/2022 8:09 AM ORDNANCE KEEPER OT EVAL AND TREAT Routine 12/04/2022 6:3 2 AM ORDNANCE KEEPER PT EVAL AND TREAT Routine 12/04/2022 6:3 2 AM ORDNANCE KEEPER CBC W AUTO DIFFERENTIAL Routine 12/04/2022 3:58 AM ORDNANCE KEEPER BASIC METABOLIC PANEL (CALCIUM TOTAL) Routine 12/04/2022 3:58 AM ORDNANCE KEEPER PHOSPHORUS BLOOD Routine 12/04/2022 3:58 AM ORDNANCE KEEPER MAGNESIUM BLOOD Routine 12/04/2022 3:58 AM ORDNANCE KEEPER VANCOMYCIN LEVEL RANDOM Timed 12/04/2022 3:58 AM ORDNANCE KEEPER GLUCOSE - POINT OF CARE Routine 12/03/2022 11:18 PM ORDNANCE KEEPER BASIC METABOLIC PANEL (CALCIUM TOTAL) Timed 12/03/2022 11:13 PM ORDNANCE KEEPER DIFFERENTIAL MANUAL STAT 12/03/2022 6 :57 PM ORDNANCE KEEPER CBC W AUTO DIFFERENTIAL STAT 12/03/2022 6:57 PM ORDNANCE KEEPER LACTIC ACID BLOOD STAT 12/03/2022 6:5 7 PM ORDNANCE KEEPER VANCOMYCIN LEVEL RANDOM Routine 12/03/2022 6:57 PM ORDNANCE KEEPER BLOOD GASES SUZANNE + COOX PANEL STAT 12/03/2022 6:56 PM ORDNANCE KEEPER GLUCOSE - POINT OF CARE Routine 12/03/2022 6:22 PM ORDNANCE KEEPER BASIC METABOLIC PANEL (CALCIUM TOTAL) STAT 12/03/2022 5:07 PM ORDNANCE KEEPER URINALYSIS REFLEX TO MICROSCOPIC NO CULTURE STAT 12/03/2022 4:59 PM ORDNANCE KEEPER UREA NITROGEN URINE RANDOM Routine 12/03/2022 4:59 PM ORDNANCE KEEPER LYTES (NA K CL) URINE RANDOM PANEL STAT 12/03/2022 4:59 PM ORDNANCE KEEPER CREATININE URINE RANDOM STAT 12/03/2022 4:59 PM ORDNANCE KEEPER GLUCOSE - POINT OF CARE Routine 12/03/2022 1:29 PM ORDNANCE KEEPER HEMOGLOBIN Routine 12/03/2022 9:43 AM ORDNANCE KEEPER GLUCOSE - POINT OF CARE Routine 12/03/2022 7:40 AM ORDNANCE KEEPER PREPARE RBC LEUKOREDUCED UNIT Routine 12/03/2022 5:34 AM ORDNANCE KEEPER BLOOD TYPE VERIFICATION Routine 12/03/2022 4:10 AM ORDNANCE KEEPER EKG 12-LEAD STAT 12/03/2022 3:00 AM ORDNANCE KEEPER Hypoxia TYPE + SCREEN PANEL STAT 12/03/2022 2 :42 AM ORDNANCE KEEPER DIFFERENTIAL MANUAL Routine 12/03/2022 2 :42 AM ORDNANCE KEEPER CBC W AUTO DIFFERENTIAL Routine 12/03/2022 2:42 AM ORDNANCE KEEPER BASIC METABOLIC PANEL (CALCIUM TOTAL) Routine 12/03/2022 2:42 AM ORDNANCE KEEPER PHOSPHORUS BLOOD Routine 12/03/2022 2:42 AM ORDNANCE KEEPER MAGNESIUM BLOOD Routine 12/03/2022 2:42 AM ORDNANCE KEEPER GLUCOSE - POINT OF CARE Routine 12/03/2022 1:07 AM ORDNANCE KEEPER GLUCOSE - POINT OF CARE Routine 12/03/2022 12:30 AM ORDNANCE KEEPER CULTURE FLUID+GRAM STAIN Routine 12/03/2022 12:27 AM ORDNANCE KEEPER CULTURE ANAEROBE Routine 12/03/2022 12:2 7 AM ORDNANCE KEEPER PATHOLOGY TISSUE Routine 12/03/2022 12:1 6 AM ORDNANCE KEEPER Gangrene (HCC) GLUCOSE - POINT OF CARE Routine 12/02/2022 11:10 PM ORDNANCE KEEPER C-REACTIVE PROTEIN MONICA 12/02/2022 8: 41 PM ORDNANCE KEEPER LIPID PROFILE STAT 12/02/2022 8:33 PM ORDNANCE KEEPER HEMOGLOBIN A1C MONICA 12/02/2022 8:32 PM ORDNANCE KEEPER CULTURE BLOOD Timed 12/02/2022 8:32 PM ORDNANCE KEEPER LACTIC ACID BLOOD REFLEX TO REPEAT STAT 12/02/2022 8:00 PM ORDNANCE KEEPER CULTURE BLOOD Timed 12/02/2022 8:00 PM ORDNANCE KEEPER XR FOOT LEFT 3VW OR MORE STAT 12/02/2022 7:56 PM ORDNANCE KEEPER Swelling of left foot TROPONIN I STAT 12/02/2022 7:55 PM ORDNANCE KEEPER ERYTHROCYTE SEDIMENTATION RATE Add on 12/02/2022 7:55 PM ORDNANCE KEEPER DIFFERENTIAL MANUAL STAT 12/02/2022 7 :55 PM ORDNANCE KEEPER CBC W AUTO DIFFERENTIAL STAT 12/02/2022 7:55 PM ORDNANCE KEEPER B-TYPE NATRIURETIC PEPTIDE STAT 12/02/2022 7:55 PM ORDNANCE KEEPER COMPREHENSIVE METABOLIC PANEL STAT 12/02/2022 7:55 PM ORDNANCE KEEPER HCG BETA BLOOD QUANTITATIVE STAT 12/02/2022 7:55 PM ORDNANCE KEEPER XR CHEST 2VW STAT 12/02/2022 7:31 PM ORDNANCE KEEPER Hypoxia documented in this encounter Results * GLUCOSE - POINT OF CARE (12/12/2022 10:29 AM ORDNANCE KEEPER) Glucose WB/POC 104 70 - 115 mg/dL 12/12/2022 10:32 AM ORDNANCE KEEPER [facility] Specimen Type Cap Fingerstick 2022 10:32 AM ORDNANCE KEEPER [facility] Blood BLOOD SPECIMEN / Unknown 12/12/2022 10:29 AM ORDNANCE KEEPER 12/12/2022 10:31 AM ORDNANCE KEEPER Amanda Georges MD LAB - POINT OF CARE ORDERABLES Performing Organization Address City/[facility]/ZIP Co de Phone Number [address] [address], [facility] [phone] * GLUCOSE - POINT OF CARE (12/12/2022 8:51 AM ORDNANCE KEEPER) [facility] Glucose WB/POC 91 70 - 115 mg/dL 12/12/2022 8:56 AM [facility] Specimen Type Cap Fingerstick 2022 8:56 AM [facility] Blood BLOOD SPECIMEN / Unknown 12/12/2022 8:51 AM ORDNANCE KEEPER 12/12/2022 8:56 AM ORDNANCE KEEPER Amanda Georges MD LAB - POINT OF CARE ORDERABLES Performing Organization Address City/[facility]/ZIP Co de Phone Number [address] [address], [facility] [phone] * (ABNORMAL) CBC W AUTO DIFFERENTIAL (12/12/2022 1:44 AM ORDNANCE KEEPER) [facility] WBC 12.9(H) 3.5 - 10.5 10? 3 /uL 12/12/2022 2:18 AM [facility] RBC 3.29(L) 3.80 - 5.20 10? 6 /uL 12/12/2022 2:18 AM [facility] Hemoglobin 7.5(L) 12.0 - 15.6 g/dL 12/12/2022 2:18 AM [facility] Hematocrit 25.4(L) 35.0 - 45.0 % 12/12/2022 2:18 AM [facility] MCV 77.2(L) 80.7 - 98.3 fL 12/12/2022 2:18 AM [facility] MCH 22.8(L) 26.7 - 34.0 pg 12/12/2022 2:18 AM [facility] MCHC 29.5(L) 30.8 - 35.9 g/dL 12/12/2022 2:18 AM [facility] RDW-SD 54.5(H) 36.0 - 50.0 fL 12/12/2022 2:18 AM [facility] RDW-CV 22.0(H) 11.2 - 14.8 % 12/12/2022 2:18 AM [facility] Platelet Count 541(H) 150 - 400 10? 3 /uL 12/12/2022 2:18 AM [facility] MPV 8.7(L) 9.4 - 12.9 fL 12/12/2022 2:18 AM [facility] nRBC Absolute 0.07(H) 0 10? 3 /uL 12/12/2022 2:18 AM [facility] nRBC Auto 0.5(H) 0 /100 WBC 12/12/2022 2:18 AM [facility] Neutrophils % 65.4 35.0 - 70.0 % 12/12/2022 2:18 AM [facility] Lymphocytes % 24.6 20.0 - 43.0 % 12/12/2022 2:18 AM [facility] Monocytes % 5.8 5.0 - 13.0 % 12/12/2022 2:18 AM [facility] Eosinophils % 1.9 0.0 - 6.0 % 12/12/2022 2:18 AM [facility] Basophil % 0.3 0.0 - 2.0 % 12/12/2022 2:18 AM [facility] Neutrophils Absolute 8.40(H) 1.60 - 7.00 10? 3 /uL 12/12/2022 2:18 AM [facility] Lymphocyte Absolute 3.16 1.10 - 3.90 10? 3 /uL 12/12/2022 2:18 AM [facility] Monocytes Absolute 0.75 0.26 - 1.07 10? 3 /uL 12/12/2022 2:18 AM [facility] Eosinophils Absolute 0.25 0.00 - 0.47 10? 3 /uL 12/12/2022 2:18 AM [facility] Basophils Absolute 0.04 0.00 - 0.08 10? 3 /uL 12/12/2022 2:18 AM [facility] Immature Granulocytes % 2.0(H) 0.0 - 1.0 % 12/12/2022 2:18 AM [facility] Immature Granulocytes Absolute 0.26 12/12/2022 2:18 AM [facility] Blood BLOOD SPECIMEN / Unknown Lab Venipuncture / Unknown 12/12/2022 1:44 AM ORDNANCE KEEPER 12/12/2022 2:10 AM [facility] Levi Cooper MD LAB - HEMATOLO GY ORDERABLES [facility] [address] [place] [address], [facility] [phone] * (ABNORMAL) BASIC METABOLIC PANEL (CALCIUM TOTAL) (12/12/2022 1:44 AM [facility]) BUN 19 7 - 26 mg/dL 12/12/2022 2:39 AM [facility] Creatinine 1.12(H) 0.56 - 0.96 mg/dL 12/12/2022 2:39 AM [facility] Sodium 145 136 - 145 mmol/L 12/12/2022 2:39 AM [facility] Potassium 3.9 3.5 - 4.5 mmol/L 12/12/2022 2:39 AM [facility] Chloride 109(H) 98 - 107 mmol/L 12/12/2022 2:39 AM [facility] CO2 27 22 - 29 mmol/L 12/12/2022 2:39 AM [facility] Glucose 110 70 - 115 mg/dL 12/12/2022 2:39 AM [facility] Calcium 7.4(L) 8.4 - 10.2 mg/dL 12/12/2022 2:39 AM [facility] Anion Gap 13 8 - 18 12/12/2022 2:39 AM [facility] BUN/Creatinine Ratio 17 7 - 23 12/12/2022 2:39 AM [facility] Osmolality Calculated 303(H) 270 - 300 mOsm/kg 12/12/2022 2:39 AM [facility] eGFR by CKD-EPI 68(L) >=90 mL/min/1.7 3 m2 12/12/2022 2:39 AM ORDNANCE KEEPER [facility] Blood BLOOD SPECIMEN / Unknown Lab Venipuncture / Unknown 12/12/2022 1:44 AM ORDNANCE KEEPER 12/12/2022 2:10 AM ORDNANCE KEEPER Levi Cooper MD LAB - CHEMISTR Y ORDERABLES [address] [address], [place] [phone] * (ABNORMAL) GLUCOSE - POINT OF CARE (12/11/2022 11:13 PM ORDNANCE KEEPER) Glucose WB/POC 149(H) 70 - 115 mg/dL 12/11/2022 11:18 PM [facility] Specimen Type Cap Fingerstick 2022 11:18 PM ORDNANCE KEEPER [facility] Blood BLOOD SPECIMEN / Unknown 12/11/2022 11:13 PM ORDNANCE KEEPER 12/11/2022 11:18 PM ORDNANCE KEEPER Amanda Georges MD LAB - POINT OF CARE ORDERABLES Performing Organization Address City/[facility]/ZIP Co de Phone Number [address] [address], [place] [phone] * (ABNORMAL) GLUCOSE - POINT OF CARE (12/11/2022 8:44 PM ORDNANCE KEEPER) Glucose WB/POC 137(H) 70 - 115 mg/dL 12/11/2022 8:49 PM ORDNANCE KEEPER [facility] Specimen Type Cap Fingerstick 2022 8:49 PM ORDNANCE KEEPER [facility] Blood BLOOD SPECIMEN / Unknown 12/11/2022 8:44 PM ORDNANCE KEEPER 12/11/2022 8:49 PM ORDNANCE KEEPER Amanda Georges MD LAB - POINT OF CARE ORDERABLES [address] [address], [place] [phone] * (ABNORMAL) GLUCOSE - POINT OF CARE (12/11/2022 4:17 PM ORDNANCE KEEPER) Glucose WB/POC 121(H) 70 - 115 mg/dL 12/11/2022 4:22 PM ORDNANCE KEEPER [facility] Specimen Type Cap Fingerstick 2022 4:22 PM ORDNANCE KEEPER [facility] Blood BLOOD SPECIMEN / Unknown 12/11/2022 4:17 PM ORDNANCE KEEPER 12/11/2022 4:21 PM ORDNANCE KEEPER Amanda Georges MD LAB - POINT OF CARE ORDERABLES [facility] [address] [place] [address], [place] [phone] * GLUCOSE - POINT OF CARE (12/11/2022 2:34 PM ORDNANCE KEEPER) Glucose WB/POC 109 70 - 115 mg/dL 12/11/2022 2:39 PM ORDNANCE KEEPER [facility] Specimen Type Cap Fingerstick 2022 2:39 PM ORDNANCE KEEPER [facility] Blood BLOOD SPECIMEN / Unknown 12/11/2022 2:34 PM ORDNANCE KEEPER 12/11/2022 2:39 PM ORDNANCE KEEPER Amanda Georges MD LAB - POINT OF CARE ORDERABLES Performing Organization Address City/[facility]/ZIP Co de Phone Number [facility] [address] [place] [address], [place] [phone] * GLUCOSE - POINT OF CARE (12/11/2022 12:32 PM ORDNANCE KEEPER) Glucose WB/POC 97 70 - 115 mg/dL 12/11/2022 12:37 PM ORDNANCE KEEPER [facility] Specimen Type Cap Fingerstick 2022 12:37 PM ORDNANCE KEEPER [facility] Blood BLOOD SPECIMEN / Unknown 12/11/2022 12:32 PM ORDNANCE KEEPER 12/11/2022 12:37 PM ORDNANCE KEEPER Amanda Georges MD LAB - POINT OF CARE ORDERABLES [address] [address], [place] [phone] * GLUCOSE - POINT OF CARE (12/11/2022 7:47 AM ORDNANCE KEEPER) Glucose WB/POC 88 70 - 115 mg/dL 12/11/2022 7:59 AM ORDNANCE KEEPER [facility] Specimen Type Cap Fingerstick 2022 7:59 AM [facility] Blood BLOOD SPECIMEN / Unknown 12/11/2022 7:47 AM ORDNANCE KEEPER 12/11/2022 7:59 AM ORDNANCE KEEPER Amanda Georges MD LAB - POINT OF CARE ORDERABLES Performing Organization Address City/[facility]/ZIP Co de Phone Number [address] [address], [place] [phone] * GLUCOSE - POINT OF CARE (12/11/2022 4:05 AM ORDNANCE KEEPER) [facility] Glucose WB/POC 104 70 - 115 mg/dL 12/11/2022 4:10 AM [facility] Specimen Type Cap Fingerstick 2022 4:10 AM ORDNANCE KEEPER [facility] Blood BLOOD SPECIMEN / Unknown 12/11/2022 4:05 AM ORDNANCE KEEPER 12/11/2022 4:10 AM ORDNANCE KEEPER Amanda Georges MD LAB - POINT OF CARE ORDERABLES [address] [address], [facility] [phone] * (ABNORMAL) RBC MORPHOLOGY (12/11/2022 12:20 AM ORDNANCE KEEPER) Pathologist [facility] Platelet Estimate Increased (A) Adequate 12/11/2022 3:51 AM [facility] Anisocytosis 1+(A) None 12/11/2022 3:51 AM [facility] Microcytes Occasiona l(A) None 12/11/2022 3:51 AM [facility] Macrocytosis Occasiona l(A) None 12/11/2022 3:51 AM [facility] Hypochromia Rare(A) None 12/11/2022 3:51 AM [facility] Polychromasia Few(A) None 12/11/2022 3:51 AM [facility] Schistocytes Occasiona l(A) None 12/11/2022 3:51 AM [facility] Blood BLOOD SPECIMEN / Unknown Lab Venipuncture / Unknown 12/11/2022 12:20 AM ORDNANCE KEEPER 12/11/2022 3:03 AM ORDNANCE KEEPER Levi Cooper MD LAB - HEMATOLO GY ORDERABLES [facility] [address] [place] [address], [facility] [phone] * (ABNORMAL) CBC W AUTO DIFFERENTIAL (12/11/2022 12:20 AM ORDNANCE KEEPER) WBC 12.5(H) 3.5 - 10.5 10? 3 /uL 12/11/2022 3:25 AM [facility] RBC 3.74(L) 3.80 - 5.20 10? 6 /uL 12/11/2022 3:25 AM [facility] Hemoglobin 8.4(L) 12.0 - 15.6 g/dL 12/11/2022 3:25 AM [facility] Hematocrit 30.2(L) 35.0 - 45.0 % 12/11/2022 3:25 AM [facility] MCV 80.7 80.7 - 98.3 fL 12/11/2022 3:25 AM [facility] MCH 22.5(L) 26.7 - 34.0 pg 12/11/2022 3:25 AM [facility] MCHC 27.8(L) 30.8 - 35.9 g/dL 12/11/2022 3:25 AM [facility] RDW-SD 58.4(H) 36.0 - 50.0 fL 12/11/2022 3:25 AM [facility] RDW-CV 22.1(H) 11.2 - 14.8 % 12/11/2022 3:25 AM [facility] Platelet Count 532(H) 150 - 400 10? 3 /uL 12/11/2022 3:25 AM [facility] MPV 9.5 9.4 - 12.9 fL 12/11/2022 3:25 AM [facility] nRBC Absolute 0.06(H) 0 10? 3 /uL 12/11/2022 3:25 AM [facility] nRBC Auto 0.5(H) 0 /100 WBC 12/11/2022 3:25 AM [facility] Neutrophils % 65.5 35.0 - 70.0 % 12/11/2022 3:25 AM [facility] Lymphocytes % 22.2 20.0 - 43.0 % 12/11/2022 3:25 AM [facility] Monocytes % 5.5 5.0 - 13.0 % 12/11/2022 3:25 AM [facility] Eosinophils % 2.2 0.0 - 6.0 % 12/11/2022 3:25 AM [facility] Basophil % 0.4 0.0 - 2.0 % 12/11/2022 3:25 AM [facility] Neutrophils Absolute 8.15(H) 1.60 - 7.00 10? 3 /uL 12/11/2022 3:25 AM [facility] Lymphocyte Absolute 2.77 1.10 - 3.90 10? 3 /uL 12/11/2022 3:25 AM [facility] Monocytes Absolute 0.69 0.26 - 1.07 10? 3 /uL 12/11/2022 3:25 AM [facility] Eosinophils Absolute 0.27 0.00 - 0.47 10? 3 /uL 12/11/2022 3:25 AM [facility] Basophils Absolute 0.05 0.00 - 0.08 10? 3 /uL 12/11/2022 3:25 AM [facility] Immature Granulocytes % 4.2(H) 0.0 - 1.0 % 12/11/2022 3:25 AM [facility] Immature Granulocytes Absolute 0.52 12/11/2022 3:25 AM [facility] Blood BLOOD SPECIMEN / Unknown Lab Venipuncture / Unknown 12/11/2022 12:20 AM ORDNANCE KEEPER 12/11/2022 3:03 AM ORDNANCE KEEPER Levi Cooper MD LAB - HEMATOLO GY ORDERABLES Performing Organization Address City/[facility] Co de Phone Number [facility] [address] [place] [address], [facility] [phone] * (ABNORMAL) BASIC METABOLIC PANEL (CALCIUM TOTAL) (12/11/2022 12:20 AM ORDNANCE KEEPER) BUN 19 7 - 26 mg/dL 12/11/2022 3:31 AM [facility] Creatinine 1.38(H) 0.56 - 0.96 mg/dL 12/11/2022 3:31 AM [facility] Sodium 144 136 - 145 mmol/L 12/11/2022 3:31 AM [facility] Potassium 3.6 3.5 - 4.5 mmol/L 12/11/2022 3:31 AM [facility] Chloride 109(H) 98 - 107 mmol/L 12/11/2022 3:31 AM [facility] CO2 25 22 - 29 mmol/L 12/11/2022 3:31 AM [facility] Glucose 114 70 - 115 mg/dL 12/11/2022 3:31 AM [facility] Calcium 8.0(L) 8.4 - 10.2 mg/dL 12/11/2022 3:31 AM [facility] Anion Gap 14 8 - 18 12/11/2022 3:31 AM [facility] BUN/Creatinine Ratio 14 7 - 23 12/11/2022 3:31 AM [facility] Osmolality Calculated 301(H) 270 - 300 mOsm/kg 12/11/2022 3:31 AM [facility] eGFR by CKD-EPI 53(L) >=90 mL/min/1.7 3 m2 12/11/2022 3:31 AM [facility] Blood BLOOD SPECIMEN / Unknown Lab Venipuncture / Unknown 12/11/2022 12:20 AM ORDNANCE KEEPER 12/11/2022 3:03 AM ORDNANCE KEEPER Levi Cooper MD LAB - CHEMISTR Y ORDERABLES [address] [address], [place] [phone] * GLUCOSE - POINT OF CARE (12/10/2022 11:39 PM ORDNANCE KEEPER) Glucose WB/POC 110 70 - 115 mg/dL 12/10/2022 11:44 PM ORDNANCE KEEPER [facility] Specimen Type Cap Fingerstick 2022 11:44 PM ORDNANCE KEEPER [facility] Blood BLOOD SPECIMEN / Unknown 12/10/2022 11:39 PM ORDNANCE KEEPER 12/10/2022 11:44 PM ORDNANCE KEEPER Amanda Georges MD LAB - POINT OF CARE ORDERABLES Performing Organization Address [facility]/ZIP Co de Phone Number [address] [address], [place] [phone] * GLUCOSE - POINT OF CARE (12/10/2022 7:54 PM ORDNANCE KEEPER) Glucose WB/POC 108 70 - 115 mg/dL 12/10/2022 7:59 PM ORDNANCE KEEPER [facility] Specimen Type Cap Fingerstick 2022 7:59 PM ORDNANCE KEEPER [facility] Blood BLOOD SPECIMEN / Unknown 12/10/2022 7:54 PM ORDNANCE KEEPER 12/10/2022 7:59 PM ORDNANCE KEEPER Amanda Georges MD LAB - POINT OF CARE ORDERABLES Performing Organization Address City/[facility]/ZIP Co de Phone Number [address] [address], [place] [phone] * GLUCOSE - POINT OF CARE (12/10/2022 4:15 PM ORDNANCE KEEPER) Glucose WB/POC 108 70 - 115 mg/dL 12/10/2022 4:20 PM ORDNANCE KEEPER [facility] Specimen Type Cap Fingerstick 2022 4:20 PM ORDNANCE KEEPER [facility] Blood BLOOD SPECIMEN / Unknown 12/10/2022 4:15 PM ORDNANCE KEEPER 12/10/2022 4:20 PM ORDNANCE KEEPER Amanda Georges MD LAB - POINT OF CARE ORDERABLES [address] [address], [place] [phone] * CARDIAC EKG ORDER (12/10/2022 12:04 PM [facility] KEEPER) Narrative 12/10/2022 12:04 PM [facility] Ordered by an unspecified provider. Scanned Document CARDIAC SERVICES ORD ERABLES * GLUCOSE - POINT OF CARE (12/10/2022 11:36 AM [facility] KEEPER) Glucose WB/POC 111 70 - 115 mg/dL 12/10/2022 11:41 AM [facility] Specimen Type Cap Fingerstick 2022 11:41 AM [facility] Blood BLOOD SPECIMEN / Unknown 12/10/2022 11:36 AM [facility] 12/10/2022 11:41 AM [facility] Amanda Georges MD LAB - POINT OF CARE ORDERABLES [address] [address], [place] [phone] * GLUCOSE - POINT OF CARE (12/10/2022 8:59 AM [facility] KEEPER) Glucose WB/POC 100 70 - 115 mg/dL 12/10/2022 9:03 AM [facility] Specimen Type Cap Fingerstick 2022 9:03 AM [facility] Blood BLOOD SPECIMEN / Unknown 12/10/2022 8:59 AM [facility] 12/10/2022 9:03 AM [facility] K[facility] Amanda Georges MD LAB - POINT OF CARE ORDERABLES [address] [address], [place] [phone] * (ABNORMAL) GLUCOSE - POINT OF CARE (12/10/2022 5:24 AM [facility]CE KEEPER) Glucose WB/POC 126(H) 70 - 115 mg/dL 12/10/2022 5:29 AM [facility] Specimen Type Cap Fingerstick 2022 5:29 AM [facility] Blood BLOOD SPECIMEN / Unknown 12/10/2022 5:24 AM [facility] 12/10/2022 5:29 AM [facility] KEEPER Branden Galindo MD LAB - POINT OF CARE ORDERABLES [facility] [address] [place] [address], [place] [phone] * (ABNORMAL) GLUCOSE - POINT OF CARE (12/10/2022 12:40 AM OR[facility]NCE KEEPER) Pathologist [facility] Glucose WB/POC 231(H) 70 - 115 mg/dL 12/10/2022 12:45 AM [facility] Specimen Type Cap Fingerstick 2022 12:45 AM [facility] Blood BLOOD SPECIMEN / Unknown 12/10/2022 12:40 AM [facility] K[facility]PER 12/10/2022 12:45 AM [facility]PER Branden Galindo MD LAB - POINT OF CARE ORDERABLES [facility] [address] [place] [address], [place] [phone] * (ABNORMAL) DIFFERENTIAL MANUAL (12/10/2022 12:36 AM [facility]CE KEEPER) Pathologist [facility] WBC (corrected for NRBC) 15.1 10? 3 /uL 12/10/2022 3:36 AM [facility] Total Cell Count 100 12/10/19 23 3:36 AM [facility] Neutrophils Absolute Manual 11.93(H) 1.60 - 7.00 10? 3 /uL 12/10/2022 3:36 AM [facility] Comment:(BANDS+SEGS) x WBC = NEUT # (ANC) Lymphocyte Absolute Manual 1.51 1.10 - 3.90 10? 3 /uL 12/10/2022 3:36 AM [facility] Monocytes Absolute Manual 0.60 0.26 - 1.07 10? 3 /uL 12/10/2022 3:36 AM [facility] Eosinophils Absolute Manual 0.60(H) 0.00 - 0.47 10? 3 /uL 12/10/2022 3:36 AM [facility] Band % Manual 1 0 - 10 % 12/10/2022 3:36 AM [facility] Neutrophil % Manual 78(H) 35 - 70 % 12/10/2022 3:36 AM [facility] Lymphocyte % Manual 10(L) 20 - 43 % 12/10/2022 3:36 AM [facility] Monocytes % Manual 4(L) 5 - 13 % 12/10/2022 3:36 AM [facility] Eosinophils % Manual 4 0 - 6 % 12/10/2022 3:36 AM [facility] Metamyelocyte % Manual 1(H) 0 % 12/10/2022 3:36 AM [facility] Myelocytes % Manual 2(H) 0 % 12/10/2022 3:36 AM [facility] Platelet Estimate Increased (A) Adequate 12/10/2022 3:36 AM [facility] Anisocytosis 1+(A) None 12/10/2022 3:36 AM [facility] Hypochromia Occasiona l(A) None 12/10/2022 3:36 AM [facility] Polychromasia 1+(A) None 12/10/2022 3:36 AM [facility] Schistocytes Occasiona l(A) None 12/10/2022 3:36 AM [facility] Blood BLOOD SPECIMEN / Unknown Lab Venipuncture / Unknown 12/10/2022 12:36 AM [facility] 12/10/2022 1:42 AM [facility] Levi Cooper MD LAB - HEMATOLO GY ORDERABLES [facility] [address] [place] [address], [facility] [phone] * (ABNORMAL) CBC W AUTO DIFFERENTIAL (12/10/2022 12:36 AM ORDNANCE KEEPER) WBC 15.1(H) 3.5 - 10.5 10? 3 /uL 12/10/2022 2:03 AM [facility] RBC 3.49(L) 3.80 - 5.20 10? 6 /uL 12/10/2022 2:03 AM [facility] Hemoglobin 8.0(L) 12.0 - 15.6 g/dL 12/10/2022 2:03 AM [facility] Hematocrit 26.9(L) 35.0 - 45.0 % 12/10/2022 2:03 AM [facility] MCV 77.1(L) 80.7 - 98.3 fL 12/10/2022 2:03 AM [facility] MCH 22.9(L) 26.7 - 34.0 pg 12/10/2022 2:03 AM [facility] MCHC 29.7(L) 30.8 - 35.9 g/dL 12/10/2022 2:03 AM [facility] RDW-SD 54.2(H) 36.0 - 50.0 fL 12/10/2022 2:03 AM [facility] RDW-CV 21.0(H) 11.2 - 14.8 % 12/10/2022 2:03 AM [facility] Platelet Count 619(H) 150 - 400 10? 3 /uL 12/10/2022 2:03 AM [facility] MPV 8.8(L) 9.4 - 12.9 fL 12/10/2022 2:03 AM [facility] nRBC Absolute 0.06(H) 0 10? 3 /uL 12/10/2022 2:03 AM [facility] nRBC Auto 0.4(H) 0 /100 WBC 12/10/2022 2:03 AM [facility] Blood BLOOD SPECIMEN / Unknown Lab Venipuncture / Unknown 12/10/2022 12:36 AM ORDNANCE KEEPER 12/10/2022 1:42 AM ORDNANCE KEEPER Levi Cooper MD LAB - HEMATOLO GY ORDERABLES [facility] [address] [place] [address], [facility] [phone] * (ABNORMAL) BASIC METABOLIC PANEL (CALCIUM TOTAL) (12/10/2022 12:36 AM ORDNANCE KEEPER) BUN 20 7 - 26 mg/dL 12/10/2022 2:14 AM [facility] Creatinine 1.46(H) 0.56 - 0.96 mg/dL 12/10/2022 2:14 AM [facility] Sodium 147(H) 136 - 145 mmol/L 12/10/2022 2:14 AM [facility] Potassium 3.6 3.5 - 4.5 mmol/L 12/10/2022 2:14 AM [facility] Chloride 112(H) 98 - 107 mmol/L 12/10/2022 2:14 AM [facility] CO2 26 22 - 29 mmol/L 12/10/2022 2:14 AM [facility] Glucose 159(H) 70 - 115 mg/dL 12/10/2022 2:14 AM [facility] Calcium 7.9(L) 8.4 - 10.2 mg/dL 12/10/2022 2:14 AM [facility] Anion Gap 13 8 - 18 12/10/2022 2:14 AM [facility] BUN/Creatinine Ratio 14 7 - 23 12/10/2022 2:14 AM [facility] Osmolality Calculated 310(H) 270 - 300 mOsm/kg 12/10/2022 2:14 AM [facility] eGFR by CKD-EPI 49(L) >=90 mL/min/1.7 3 m2 12/10/2022 2:14 AM [facility] Blood BLOOD SPECIMEN / Unknown Lab Venipuncture / Unknown 12/10/2022 12:36 AM ORDNANCE KEEPER 12/10/2022 1:42 AM [facility] Levi Cooper MD LAB - CHEMISTR Y ORDERABLES [facility] [address] [place] [address], [facility] [phone] * GLUCOSE - POINT OF CARE (12/09/2022 8:51 PM ORDNANCE KEEPER) Glucose WB/POC 103 70 - 115 mg/dL 12/09/2022 8:56 PM ORDNANCE KEEPER [facility] Specimen Type Cap Fingerstick 2022 8:56 PM ORDNANCE KEEPER [facility] Blood BLOOD SPECIMEN / Unknown 12/09/2022 8:51 PM ORDNANCE KEEPER 12/09/2022 8:56 PM ORDNANCE KEEPER Branden Galindo MD LAB - POINT OF CARE ORDERABLES [address] [address], [place] [phone] * GLUCOSE - POINT OF CARE (12/09/2022 4:07 PM ORDNANCE KEEPER) Glucose WB/POC 79 70 - 115 mg/dL 12/09/2022 4:16 PM ORDNANCE KEEPER [facility] Specimen Type Cap Fingerstick 2022 4:16 PM ORDNANCE KEEPER [facility] Blood BLOOD SPECIMEN / Unknown 12/09/2022 4:07 PM ORDNANCE KEEPER 12/09/2022 4:16 PM ORDNANCE KEEPER Branden Galindo MD LAB - POINT OF CARE ORDERABLES [address] [address], [place] [phone] * (ABNORMAL) GLUCOSE - POINT OF CARE (12/09/2022 12:58 PM ORDNANCE KEEPER) Glucose WB/POC 202(H) 70 - 115 mg/dL 12/09/2022 7:35 PM ORDNANCE KEEPER [facility] Specimen Type Cap Fingerstick 2022 7:35 PM ORDNANCE KEEPER [facility] Blood BLOOD SPECIMEN / Unknown 12/09/2022 12:58 PM ORDNANCE KEEPER 12/09/2022 7:35 PM ORDNANCE KEEPER Branden Galindo MD LAB - POINT OF CARE ORDERABLES [facility] [address] [place] [address], [place] [phone] * (ABNORMAL) GLUCOSE - POINT OF CARE (12/09/2022 7:59 AM ORDNANCE KEEPER) Glucose WB/POC 124(H) 70 - 115 mg/dL 12/09/2022 8:07 AM [facility] Specimen Type Cap Fingerstick 2022 8:07 AM [facility] Blood BLOOD SPECIMEN / Unknown 12/09/2022 7:59 AM ORDNANCE KEEPER 12/09/2022 8:07 AM ORDNANCE KEEPER Branden Galindo MD LAB - POINT OF CARE ORDERABLES [address] [address], [place] [phone] * (ABNORMAL) GLUCOSE - POINT OF CARE (12/09/2022 4:47 AM ORDNANCE KEEPER) Glucose WB/POC 118(H) 70 - 115 mg/dL 12/09/2022 4:56 AM [facility] Specimen Type Cap Fingerstick 2022 4:56 AM [facility] Blood BLOOD SPECIMEN / Unknown 12/09/2022 4:47 AM ORDNANCE KEEPER 12/09/2022 4:56 AM ORDNANCE KEEPER Branden Galindo MD LAB - POINT OF CARE ORDERABLES [address] [address], [place] [phone] * (ABNORMAL) DIFFERENTIAL MANUAL (12/09/2022 1:29 AM ORDNANCE KEEPER) WBC (corrected for NRBC) 19.1 10? 3 /uL 12/09/2022 3:36 AM [facility] Total Cell Count 100 12/09/19 3:36 AM [facility] Neutrophils Absolute Manual 14.52(H) 1.60 - 7.00 10? 3 /uL 12/09/2022 3:36 AM [facility] Comment:(BANDS+SEGS) x WBC = NEUT # (ANC) Lymphocyte Absolute Manual 1.91 1.10 - 3.90 10? 3 /uL 12/09/2022 3:36 AM [facility] Monocytes Absolute Manual 1.15(H) 0.26 - 1.07 10? 3 /uL 12/09/2022 3:36 AM [facility] Eosinophils Absolute Manual 0.57(H) 0.00 - 0.47 10? 3 /uL 12/09/2022 3:36 AM [facility] Band % Manual 2 0 - 10 % 12/09/2022 3:36 AM [facility] Neutrophil % Manual 74(H) 35 - 70 % 12/09/2022 3:36 AM [facility] Lymphocyte % Manual 10(L) 20 - 43 % 12/09/2022 3:36 AM [facility] Monocytes % Manual 6 5 - 13 % 12/09/2022 3:36 AM [facility] Eosinophils % Manual 3 0 - 6 % 12/09/2022 3:36 AM [facility] Metamyelocyte % Manual 4(H) 0 % 12/09/2022 3:36 AM [facility] Myelocytes % Manual 1(H) 0 % 12/09/2022 3:36 AM [facility] Platelet Estimate Increased(A ) Adequate 12/09/2022 3:36 AM [facility] Anisocytosis 1+(A) None 12/09/2022 3:36 AM [facility] Microcytes 2+(A) None 12/09/2022 3:36 AM [facility] Macrocytosis Occasional( A) None 12/09/2022 3:36 AM [facility] Hypochromia Occasional( A) None 12/09/2022 3:36 AM [facility] Polychromasia 1+(A) None 12/09/2022 3:36 AM [facility] Target Cells 1+(A) None 12/09/2022 3:36 AM [facility] Comment Platelet Platelet clumpled on the smear but appear increased. 12/09/2022 3:36 AM [facility] Blood BLOOD SPECIMEN / Unknown Lab Venipuncture / Unknown 12/09/2022 1:29 AM ORDNANCE KEEPER 12/09/2022 2:07 AM ORDNANCE KEEPER Levi Cooper MD LAB - HEMATOLO GY ORDERABLES [facility] [address] [place] [address], [facility] [phone] * (ABNORMAL) CBC W AUTO DIFFERENTIAL (12/09/2022 1:29 AM ORDNANCE KEEPER) WBC 19.1(H) 3.5 - 10.5 10? 3 /uL 12/09/2022 2:36 AM [facility] RBC 3.33(L) 3.80 - 5.20 10? 6 /uL 12/09/2022 2:36 AM [facility] Hemoglobin 7.5(L) 12.0 - 15.6 g/dL 12/09/2022 2:36 AM [facility] Hematocrit 25.4(L) 35.0 - 45.0 % 12/09/2022 2:36 AM [facility] MCV 76.3(L) 80.7 - 98.3 fL 12/09/2022 2:36 AM [facility] MCH 22.5(L) 26.7 - 34.0 pg 12/09/2022 2:36 AM [facility] MCHC 29.5(L) 30.8 - 35.9 g/dL 12/09/2022 2:36 AM [facility] RDW-SD 53.4(H) 36.0 - 50.0 fL 12/09/2022 2:36 AM [facility] RDW-CV 20.4(H) 11.2 - 14.8 % 12/09/2022 2:36 AM [facility] Platelet Count 622(H) 150 - 400 10? 3 /uL 12/09/2022 2:36 AM [facility] MPV 8.8(L) 9.4 - 12.9 fL 12/09/2022 2:36 AM [facility] nRBC Absolute 0.12(H) 0 10? 3 /uL 12/09/2022 2:36 AM [facility] nRBC Auto 0.6(H) 0 /100 WBC 12/09/2022 2:36 AM [facility] Blood BLOOD SPECIMEN / Unknown Lab Venipuncture / Unknown 12/09/2022 1:29 AM ORDNANCE KEEPER 12/09/2022 2:07 AM ORDNANCE KEEPER Levi Cooper MD LAB - HEMATOLO GY ORDERABLES [facility] [address] [place] [address], [facility] [phone] * (ABNORMAL) BASIC METABOLIC PANEL (CALCIUM TOTAL) (12/09/2022 1:29 AM ORDNANCE KEEPER) BUN 24 7 - 26 mg/dL 12/09/2022 2:47 AM [facility] Creatinine 1.63(H) 0.56 - 0.96 mg/dL 12/09/2022 2:47 AM [facility] Sodium 146(H) 136 - 145 mmol/L 12/09/2022 2:47 AM [facility] Potassium 3.4(L) 3.5 - 4.5 mmol/L 12/09/2022 2:47 AM [facility] Chloride 113(H) 98 - 107 mmol/L 12/09/2022 2:47 AM [facility] CO2 23 22 - 29 mmol/L 12/09/2022 2:47 AM [facility] Glucose 109 70 - 115 mg/dL 12/09/2022 2:47 AM [facility] Calcium 7.7(L) 8.4 - 10.2 mg/dL 12/09/2022 2:47 AM [facility] Anion Gap 13 8 - 18 12/09/2022 2:47 AM [facility] BUN/Creatinine Ratio 15 7 - 23 12/09/2022 2:47 AM [facility] Osmolality Calculated 307(H) 270 - 300 mOsm/kg 12/09/2022 2:47 AM [facility] eGFR by CKD-EPI 43(L) >=90 mL/min/1.7 3 m2 12/09/2022 2:47 AM [facility] Blood BLOOD SPECIMEN / Unknown Lab Venipuncture / Unknown 12/09/2022 1:29 AM ORDNANCE KEEPER 12/09/2022 2:04 AM ORDNANCE KEEPER Levi Cooper MD LAB - CHEMISTR Y ORDERABLES [facility] [address] [place] [address], [place] [phone] * (ABNORMAL) GLUCOSE - POINT OF CARE (12/09/2022 12:47 AM ORDNANCE KEEPER) Glucose WB/POC 161(H) 70 - 115 mg/dL 12/09/2022 12:52 AM [facility] Specimen Type Cap Fingerstick 2022 12:52 AM [facility] Blood BLOOD SPECIMEN / Unknown 12/09/2022 12:47 AM ORDNANCE KEEPER 12/09/2022 12:52 AM ORDNANCE KEEPER Branden Galindo MD LAB - POINT OF CARE ORDERABLES Performing Organization Address City/[facility]/ZIP Co de Phone Number [address] [address], [place] [phone] * (ABNORMAL) GLUCOSE - POINT OF CARE (12/08/2022 9:39 PM ORDNANCE KEEPER) Glucose WB/POC 162(H) 70 - 115 mg/dL 12/08/2022 9:44 PM ORDNANCE KEEPER [facility] Specimen Type Cap Fingerstick 2022 9:44 PM ORDNANCE KEEPER [facility] Blood BLOOD SPECIMEN / Unknown 12/08/2022 9:39 PM ORDNANCE KEEPER 12/08/2022 9:44 PM ORDNANCE KEEPER Branden Galindo MD LAB - POINT OF CARE ORDERABLES [facility] [address] [place] [address], [place] [phone] * (ABNORMAL) GLUCOSE - POINT OF CARE (12/08/2022 5:14 PM ORDNANCE KEEPER) Glucose WB/POC 155(H) 70 - 115 mg/dL 12/08/2022 5:19 PM ORDNANCE KEEPER [facility] Specimen Type Arterial 12/08/2022 5:19 PM ORDNANCE KEEPER [facility] Blood BLOOD SPECIMEN / Unknown 12/08/2022 5:14 PM ORDNANCE KEEPER 12/08/2022 5:19 PM ORDNANCE KEEPER Branden Galindo MD LAB - POINT OF CARE ORDERABLES [facility] [address] [place] [address], [place] [phone] * VANCOMYCIN LEVEL RANDOM (12/08/2022 12:56 PM ORDNANCE KEEPER) Pathologist [facility] Vancomycin Random 16.8 Therapeutic Ranges not established for random specimens ug/mL 12/08/2022 1:24 PM ORDNANCE KEEPER [facility] Blood BLOOD SPECIMEN / Unknown Lab Venipuncture / Unknown 12/08/2022 12:56 PM ORDNANCE KEEPER 12/08/2022 1:01 PM ORDNANCE KEEPER Narrative [facility] - 12/08/2022 1:24 PM ORDNANCE KEEPER See institution protocol. Leigh [facility] - CHEMISTRY DIVINA OLVERA Performing Organization Address City/[facility]/ZIP Co de Phone Number [address] [address], [place] [phone] * (ABNORMAL) GLUCOSE - POINT OF CARE (12/08/2022 11:22 AM ORDNANCE KEEPER) Pathologist [facility] Glucose WB/POC 119(H) 70 - 115 mg/dL 12/08/2022 11:29 AM ORDNANCE KEEPER [facility] Specimen Type Arterial 12/08/2022 11:29 AM [facility] Blood BLOOD SPECIMEN / Unknown 12/08/2022 11:22 AM ORDNANCE KEEPER 12/08/2022 11:29 AM ORDNANCE KEEPER Branden Galindo MD LAB - POINT OF CARE ORDERABLES [address] [place] [address], [place] [phone] * (ABNORMAL) GLUCOSE - POINT OF CARE (12/08/2022 7:43 AM ORDNANCE KEEPER) Glucose WB/POC 146(H) 70 - 115 mg/dL 12/08/2022 7:48 AM [facility] Specimen Type Arterial 12/08/2022 7:48 AM [facility] Blood BLOOD SPECIMEN / Unknown 12/08/2022 7:43 AM ORDNANCE KEEPER 12/08/2022 7:48 AM ORDNANCE KEEPER Branden Galindo MD LAB - POINT OF CARE ORDERABLES [address] [address], [place] [phone] * (ABNORMAL) GLUCOSE - POINT OF CARE (12/08/2022 4:20 AM ORDNANCE KEEPER) Glucose WB/POC 153(H) 70 - 115 mg/dL 12/08/2022 4:21 AM [facility] Specimen Type Cap Fingerstick 2022 4:21 AM [facility] Blood BLOOD SPECIMEN / Unknown 12/08/2022 4:20 AM ORDNANCE KEEPER 12/08/2022 4:21 AM ORDNANCE KEEPER Branden Galindo MD LAB - POINT OF CARE ORDERABLES [address] [address], [place] [phone] * (ABNORMAL) DIFFERENTIAL MANUAL (12/08/2022 3:31 AM ORDNANCE KEEPER) WBC (corrected for NRBC) 20.0 10? 3 /uL 12/08/2022 5:50 AM [facility] Total Cell Count 100 12/08/19 5:50 AM [facility] Neutrophils Absolute Manual 18.80(H) 1.60 - 7.00 10? 3 /uL 12/08/2022 5:50 AM [facility] Comment:(BANDS+SEGS) x WBC = NEUT # (ANC) Lymphocyte Absolute Manual 0.80(L) 1.10 - 3.90 10? 3 /uL 12/08/2022 5:50 AM [facility] Monocytes Absolute Manual 0.20(L) 0.26 - 1.07 10? 3 /uL 12/08/2022 5:50 AM [facility] Eosinophils Absolute Manual 0.20 0.00 - 0.47 10? 3 /uL 12/08/2022 5:50 AM [facility] Band % Manual 4 0 - 10 % 12/08/2022 5:50 AM [facility] Neutrophil % Manual 90(H) 35 - 70 % 12/08/2022 5:50 AM [facility] Lymphocyte % Manual 4(L) 20 - 43 % 12/08/2022 5:50 AM [facility] Monocytes % Manual 1(L) 5 - 13 % 12/08/2022 5:50 AM [facility] Eosinophils % Manual 1 0 - 6 % 12/08/2022 5:50 AM [facility] Platelet Estimate Increased (A) Adequate 12/08/2022 5:50 AM [facility] Anisocytosis 1+(A) None 12/08/2022 5:50 AM [facility] Microcytes 1+(A) None 12/08/2022 5:50 AM [facility] Target Cells Occasiona l(A) None 12/08/2022 5:50 AM [facility] Blood BLOOD SPECIMEN / Unknown Lab Venipuncture / Unknown 12/08/2022 3:31 AM ORDNANCE KEEPER 12/08/2022 3:57 AM ORDNANCE KEEPER Levi Cooper MD LAB - HEMATOLO GY ORDERABLES [facility] [address] [place] [address], [facility] [phone] * (ABNORMAL) CBC W AUTO DIFFERENTIAL (12/08/2022 3:31 AM ORDNANCE KEEPER) WBC 20.0(H) 3.5 - 10.5 10? 3 /uL 12/08/2022 4:07 AM [facility] RBC 3.33(L) 3.80 - 5.20 10? 6 /uL 12/08/2022 4:07 AM [facility] Hemoglobin 7.6(L) 12.0 - 15.6 g/dL 12/08/2022 4:07 AM [facility] Hematocrit 25.6(L) 35.0 - 45.0 % 12/08/2022 4:07 AM [facility] MCV 76.9(L) 80.7 - 98.3 fL 12/08/2022 4:07 AM [facility] MCH 22.8(L) 26.7 - 34.0 pg 12/08/2022 4:07 AM [facility] MCHC 29.7(L) 30.8 - 35.9 g/dL 12/08/2022 4:07 AM [facility] RDW-SD 54.4(H) 36.0 - 50.0 fL 12/08/2022 4:07 AM [facility] RDW-CV 19.9(H) 11.2 - 14.8 % 12/08/2022 4:07 AM [facility] Platelet Count 562(H) 150 - 400 10? 3 /uL 12/08/2022 4:07 AM [facility] MPV 9.0(L) 9.4 - 12.9 fL 12/08/2022 4:07 AM [facility] nRBC Absolute 0.10(H) 0 10? 3 /uL 12/08/2022 4:07 AM [facility] nRBC Auto 0.5(H) 0 /100 WBC 12/08/2022 4:07 AM [facility] Blood BLOOD SPECIMEN / Unknown Lab Venipuncture / Unknown 12/08/2022 3:31 AM ORDNANCE KEEPER 12/08/2022 3:57 AM [facility] Levi Cooper MD LAB - HEMATOLO GY ORDERABLES [facility] [address] [place] [address], [facility] [phone] * (ABNORMAL) BASIC METABOLIC PANEL (CALCIUM TOTAL) (12/08/2022 3:31 AM ORDNANCE KEEPER) BUN 27(H) 7 - 26 mg/dL 12/08/2022 4:25 AM [facility] Creatinine 1.86(H) 0.56 - 0.96 mg/dL 12/08/2022 4:25 AM [facility] Sodium 145 136 - 145 mmol/L 12/08/2022 4:25 AM [facility] Potassium 3.7 3.5 - 4.5 mmol/L 12/08/2022 4:25 AM [facility] Chloride 112(H) 98 - 107 mmol/L 12/08/2022 4:25 AM [facility] CO2 22 22 - 29 mmol/L 12/08/2022 4:25 AM [facility] Glucose 158(H) 70 - 115 mg/dL 12/08/2022 4:25 AM [facility] Calcium 7.6(L) 8.4 - 10.2 mg/dL 12/08/2022 4:25 AM [facility] Anion Gap 15 8 - 18 12/08/2022 4:25 AM [facility] BUN/Creatinine Ratio 15 7 - 23 12/08/2022 4:25 AM [facility] Osmolality Calculated 308(H) 270 - 300 mOsm/kg 12/08/2022 4:25 AM [facility] eGFR by CKD-EPI 37(L) >=90 mL/min/1.7 3 m2 12/08/2022 4:25 AM [facility] Blood BLOOD SPECIMEN / Unknown Lab Venipuncture / Unknown 12/08/2022 3:31 AM ORDNANCE KEEPER 12/08/2022 3:57 AM [facility] Levi Cooper MD LAB - CHEMISTR Y ORDERABLES [facility] [address] [place] [phone], [facility] [phone] * (ABNORMAL) GLUCOSE - POINT OF CARE (12/07/2022 11:50 PM ORDNANCE KEEPER) Glucose WB/POC 133(H) 70 - 115 mg/dL 12/07/2022 11:55 PM ORDNANCE KEEPER [facility] Specimen Type Cap Fingerstick 2022 11:55 PM ORDNANCE KEEPER [facility] Blood BLOOD SPECIMEN / Unknown 12/07/2022 11:50 PM ORDNANCE KEEPER 12/07/2022 11:55 PM ORDNANCE KEEPER Branden Galindo MD LAB - POINT OF CARE ORDERABLES [address] [address], [place] [phone] * (ABNORMAL) GLUCOSE - POINT OF CARE (12/07/2022 9:25 PM ORDNANCE KEEPER) Glucose WB/POC 146(H) 70 - 115 mg/dL 12/07/2022 9:26 PM ORDNANCE KEEPER [facility] Specimen Type Cap Fingerstick 2022 9:26 PM [employer]DNANCE KEEPER [facility] Blood BLOOD SPECIMEN / Unknown 12/07/2022 9:25 PM [employer]DNANCE KEEPER 12/07/2022 9:26 PM ORDNANCE KEEPER Branden Galindo MD LAB - POINT OF CARE ORDERABLES Performing Organization Address City/[facility]/ZIP Co de Phone Number [address] [address], [place] [phone] * GLUCOSE - POINT OF CARE (12/07/2022 4:53 PM ORDNANCE KEEPER) Glucose WB/POC 105 70 - 115 mg/dL 12/07/2022 4:58 PM [employer]DNANCE KEEPER [facility] Specimen Type Arterial 12/07/2022 4:58 PM [employer]DNANCE KEEPER [facility] Blood BLOOD SPECIMEN / Unknown 12/07/2022 4:53 PM [employer]DNANCE KEEPER 12/07/2022 4:58 PM [employer]DNANCE KEEPER Branden Galindo MD LAB - POINT OF CARE ORDERABLES [address] [address], [place] [phone] * GLUCOSE - POINT OF CARE (12/07/2022 11:51 AM ORDNANCE KEEPER) Glucose WB/POC 70 70 - 115 mg/dL 12/07/2022 11:51 AM ORDNANCE KEEPER [facility] Specimen Type Cap Fingerstick 2022 11:51 AM [facility] Blood BLOOD SPECIMEN / Unknown 12/07/2022 11:51 AM [employer]NCE KEEPER 12/07/2022 11:51 AM ORDNANCE KEEPER Branden Galindo MD LAB - POINT OF CARE ORDERABLES [address] [address], [facility] [phone] * (ABNORMAL) GLUCOSE - POINT OF CARE (12/07/2022 11:29 AM ORDNANCE KEEPER) Glucose WB/POC 48(LL) 70 - 115 mg/dL 12/07/2022 11:34 AM [employer]DNANCE KEEPER [facility] Specimen Type Arterial 12/07/2022 11:34 AM [employer]DNANCE KEEPER [facility] Blood BLOOD SPECIMEN / Unknown 12/07/2022 11:29 AM [employer]NCE KEEPER 12/07/2022 11:34 AM ORDNANCE KEEPER Branden Galindo MD LAB - POINT OF CARE ORDERABLES [address] [address], [place] [phone] * (ABNORMAL) GLUCOSE - POINT OF CARE (12/07/2022 8:00 AM ORDNANCE KEEPER) Glucose WB/POC 177(H) 70 - 115 mg/dL 12/07/2022 8:01 AM [facility] Specimen Type Cap Fingerstick 2022 8:01 AM [facility] Blood BLOOD SPECIMEN / Unknown 12/07/2022 8:00 AM [employer] KEEPER 12/07/2022 8:01 AM ORDNANCE KEEPER Branden Galindo MD LAB - POINT OF CARE ORDERABLES [facility] [address] [place] [address], [facility] [phone] * (ABNORMAL) BASIC METABOLIC PANEL (CALCIUM TOTAL) (12/07/2022 5:34 AM [facility]) BUN 30(H) 7 - 26 mg/dL 12/07/2022 6:18 AM [facility] Creatinine 2.13(H) 0.56 - 0.96 mg/dL 12/07/2022 6:18 AM [facility] Sodium 142 136 - 145 mmol/L 12/07/2022 6:18 AM [facility] Potassium 3.5 3.5 - 4.5 mmol/L 12/07/2022 6:18 AM [facility] Chloride 113(H) 98 - 107 mmol/L 12/07/2022 6:18 AM [facility] CO2 21(L) 22 - 29 mmol/L 12/07/2022 6:18 AM [facility] Glucose 91 70 - 115 mg/dL 12/07/2022 6:18 AM [facility] Calcium 7.2(L) 8.4 - 10.2 mg/dL 12/07/2022 6:18 AM [facility] Anion Gap 12 8 - 18 12/07/2022 6:18 AM [facility] BUN/Creatinine Ratio 14 7 - 23 12/07/2022 6:18 AM [facility] Osmolality Calculated 300 270 - 300 mOsm/kg 12/07/2022 6:18 AM [facility] eGFR by CKD-EPI 31(L) >=90 mL/min/1.7 3 m2 12/07/2022 6:18 AM [facility] Blood BLOOD SPECIMEN / Unknown Lab Venipuncture / Unknown 12/07/2022 5:34 AM [employer] KEEPER 12/07/2022 5:48 AM [facility] Levi Cooper MD LAB - CHEMISTR Y ORDERABLES [facility] [address] [place] [address], [place] [phone] * VANCOMYCIN LEVEL RANDOM (12/07/2022 5:34 AM ORDNANCE KEEPER) Pathologist [facility] Vancomycin Random 18.5 Therapeutic Ranges not established for random specimens ug/mL 12/07/2022 6:18 AM [facility] Blood BLOOD SPECIMEN / Unknown Lab Venipuncture / Unknown 12/07/2022 5:34 AM [employer]NCE KEEPER 12/07/2022 5:48 AM [facility] Narrative [facility] - 12/07/2022 6:18 AM ORDNANCE KEEPER See institution protocol. [facility] - CHEMISTRY DIVINA OLVERA [facility] [address] [place] [phone], [facility] [phone] * (ABNORMAL) DIFFERENTIAL MANUAL (12/07/2022 5:33 AM ORDNANCE KEEPER) [facility] WBC (corrected for NRBC) 20.5 10? 3 /uL 12/07/2022 7:28 AM [facility] Total Cell Count 100 12/07/19 23 7:28 AM [facility] Neutrophils Absolute Manual 17.02(H) 1.60 - 7.00 10? 3 /uL 12/07/2022 7:28 AM [facility] Comment:(BANDS+SEGS) x WBC = NEUT # (ANC) Lymphocyte Absolute Manual 1.44 1.10 - 3.90 10? 3 /uL 12/07/2022 7:28 AM [facility] Monocytes Absolute Manual 0.62 0.26 - 1.07 10? 3 /uL 12/07/2022 7:28 AM [facility] Eosinophils Absolute Manual 0.62(H) 0.00 - 0.47 10? 3 /uL 12/07/2022 7:28 AM [facility] Band % Manual 3 0 - 10 % 12/07/2022 7:28 AM [facility] Neutrophil % Manual 80(H) 35 - 70 % 12/07/2022 7:28 AM [facility] Lymphocyte % Manual 7(L) 20 - 43 % 12/07/2022 7:28 AM ORDNANCE KEEPER [facility] Monocytes % Manual 3(L) 5 - 13 % 12/07/2022 7:28 AM [facility] Eosinophils % Manual 3 0 - 6 % 12/07/2022 7:28 AM [facility] Metamyelocyte % Manual 2(H) 0 % 12/07/2022 7:28 AM [facility] Myelocytes % Manual 2(H) 0 % 12/07/2022 7:28 AM [facility] nRBC Manual 1(H) 0 /100 WBC 12/07/2022 7:28 AM [facility] Platelet Estimate Increased(A ) Adequate 12/07/2022 7:28 AM [facility] Anisocytosis 1+(A) None 12/07/2022 7:28 AM [facility] Microcytes Occasional( A) None 12/07/2022 7:28 AM [facility] Hypochromia Few(A) None 12/07/2022 7:28 AM [facility] Target Cells 1+(A) None 12/07/2022 7:28 AM [facility] Schistocytes Occasional( A) None 12/07/2022 7:28 AM [facility] Comment Platelet Platelet clumpled on the smear but appear increased. 12/07/2022 7:28 AM [facility] Blood BLOOD SPECIMEN / Unknown Lab Venipuncture / Unknown 12/07/2022 5:33 AM ORDNANCE KEEPER 12/07/2022 5:48 AM [facility] Levi Cooper MD LAB - HEMATOLO GY ORDERABLES Performing Organization Address [facility]/State/[facility] Co de Phone Number [facility] [address] [place] [phone], [facility] [phone] * (ABNORMAL) CBC W AUTO DIFFERENTIAL (12/07/2022 5:33 AM ORDNANCE KEEPER) WBC 20.5(H) 3.5 - 10.5 10? 3 /uL 12/07/2022 7:25 AM [facility] RBC 3.57(L) 3.80 - 5.20 10? 6 /uL 12/07/2022 7:25 AM [facility] Hemoglobin 8.1(L) 12.0 - 15.6 g/dL 12/07/2022 7:25 AM [facility] Hematocrit 27.3(L) 35.0 - 45.0 % 12/07/2022 7:25 AM [facility] MCV 76.5(L) 80.7 - 98.3 fL 12/07/2022 7:25 AM [facility] MCH 22.7(L) 26.7 - 34.0 pg 12/07/2022 7:25 AM [facility] MCHC 29.7(L) 30.8 - 35.9 g/dL 12/07/2022 7:25 AM [facility] RDW-SD 54.8(H) 36.0 - 50.0 fL 12/07/2022 7:25 AM [facility] RDW-CV 20.1(H) 11.2 - 14.8 % 12/07/2022 7:25 AM [facility] Platelet Count 12/07/2022 7:25 AM [facility] Comment: Platelets are clumped, appear as increased on the slide. ??A blue top citrated tube is required for a platelet count. ?? Notified Lefty Aguilar, RN/6N at 0725H on 12/07/22. MPV 12/07/2022 7:25 AM [facility] Comment:Unable to Report Immature Platelet Fraction 12/07/2022 7:25 AM [facility] Comment:Unable to Report nRBC Absolute 0.17(H) 0 10? 3 /uL 12/07/2022 7:25 AM [facility] nRBC Auto 0.8(H) 0 /100 WBC 12/07/2022 7:25 AM [facility] Blood BLOOD SPECIMEN / Unknown Lab Venipuncture / Unknown 12/07/2022 5:33 AM ORDNANCE KEEPER 12/07/2022 5:48 AM [facility] Levi Cooper MD LAB - HEMATOLO GY ORDERABLES [facility] [address] [place] [address], [facility] [phone] * GLUCOSE - POINT OF CARE (12/07/2022 5:15 AM ORDNANCE KEEPER) Glucose WB/POC 92 70 - 115 mg/dL 12/07/2022 5:20 AM ORDNANCE KEEPER [facility] Specimen Type Cap Fingerstick 2022 5:20 AM [facility] Blood BLOOD SPECIMEN / Unknown 12/07/2022 5:15 AM ORDNANCE KEEPER 12/07/2022 5:20 AM ORDNANCE KEEPER Branden Galindo MD LAB - POINT OF CARE ORDERABLES [facility] [address] [place] [address], [place] [phone] * (ABNORMAL) GLUCOSE - POINT OF CARE (12/07/2022 4:50 AM ORDNANCE KEEPER) Glucose WB/POC 62(L) 70 - 115 mg/dL 12/07/2022 4:56 AM [facility] Specimen Type Cap Fingerstick 2022 4:56 AM ORDNANCE KEEPER [facility] Blood BLOOD SPECIMEN / Unknown 12/07/2022 4:50 AM ORDNANCE KEEPER 12/07/2022 4:56 AM ORDNANCE KEEPER Branden Galindo MD LAB - POINT OF CARE ORDERABLES [facility] [address] [place] [address], [place] [phone] * (ABNORMAL) GLUCOSE - POINT OF CARE (12/07/2022 4:19 AM ORDNANCE KEEPER) Glucose WB/POC 69(L) 70 - 115 mg/dL 12/07/2022 4:27 AM ORDNANCE KEEPER [facility] Specimen Type Cap Fingerstick 2022 4:27 AM ORDNANCE KEEPER [facility] Blood BLOOD SPECIMEN / Unknown 12/07/2022 4:19 AM ORDNANCE KEEPER 12/07/2022 4:27 AM ORDNANCE KEEPER Branden Galindo MD LAB - POINT OF CARE ORDERABLES [facility] [address] [place] [address], [place] [phone] * PREPARE (CROSSMATCH) RBC UNIT(S), 2 Units (12/07/2022 1:17 AM ORDNANCE KEEPER) Unit Description AS1 LR PRBC [facility] Unit ABO A [facility] Unit Rh POS [facility] Product Number R44 [facility] Unit Donor # [id number] [facility] Unit Status released [facility] D [facility] Product Code [id number] [facility] Blood Type Barcode 6200 [facility] Expiration Date S BLOOD BANK LAB Unit Description AS1 LR PRBC [facility] Unit ABO A [facility] Unit Rh POS [facility] Product Number R02 [facility] LO[facility] Unit Donor # [id number] [facility] Unit Status released [facility] Product Code [id number] [facility] Blood Type Barcode 6200 [facility] Expiration Date S BLOOD BANK LAB Blood Bank BLOOD SPECIMEN / Unknown 12/03/2022 2:48 AM ORDNANCE KEEPER Graeme Rodgers MD LAB - BLOOD BANK O RDERABLES [facility] [address] [place] [address], [facility] [phone] * (ABNORMAL) GLUCOSE - POINT OF CARE (12/07/2022 12:04 AM ORDNANCE KEEPER) Glucose WB/POC 358(H) 70 - 115 mg/dL 12/07/2022 12:12 AM ORDNANCE KEEPER [facility] Specimen Type Cap Fingerstick 2022 12:12 AM ORDNANCE KEEPER [facility] Blood BLOOD SPECIMEN / Unknown 12/07/2022 12:04 AM ORDNANCE KEEPER 12/07/2022 12:12 AM ORDNANCE KEEPER Branden Galindo MD LAB - POINT OF CARE ORDERABLES Performing Organization Address City/[facility]/ZIP Co de Phone Number [address] [address], [place] [phone] * (ABNORMAL) GLUCOSE - POINT OF CARE (12/06/2022 8:10 PM ORDNANCE KEEPER) Glucose WB/POC 160(H) 70 - 115 mg/dL 12/06/2022 8:14 PM ORDNANCE KEEPER [facility] Specimen Type Cap Fingerstick 2022 8:14 PM ORDNANCE KEEPER [facility] Blood BLOOD SPECIMEN / Unknown 12/06/2022 8:10 PM ORDNANCE KEEPER 12/06/2022 8:14 PM ORDNANCE KEEPER Branden Galindo MD LAB - POINT OF CARE ORDERABLES Performing Organization Address City/[facility]/ZIP Co de Phone Number [address] [address], [place] [phone] * BACTERIAL VAGINOSIS RAPID TEST (12/06/2022 6:20 PM ORDNANCE KEEPER) Bacterial Vaginosis Rapid Negative Negative 12/06/2022 7:00 PM ORDNANCE KEEPER [facility] Microbiology VAGINAL SWAB / Unknown Collection / Unknown 12/06/2022 6:20 PM ORDNANCE KEEPER 12/06/2022 6:31 PM ORDNANCE KEEPER [facility] - MICROBIOLOGY O RDERABLES [address] [address], [place] [phone] * (ABNORMAL) GLUCOSE - POINT OF CARE (12/06/2022 5:11 PM ORDNANCE KEEPER) Glucose WB/POC 146(H) 70 - 115 mg/dL 12/06/2022 5:16 PM ORDNANCE KEEPER [facility] Specimen Type Cap Fingerstick 2022 5:16 PM ORDNANCE KEEPER [facility] Blood BLOOD SPECIMEN / Unknown 12/06/2022 5:11 PM ORDNANCE KEEPER 12/06/2022 5:16 PM ORDNANCE KEEPER Branden Galindo MD LAB - POINT OF CARE ORDERABLES [address] [address], [place] [phone] * GLUCOSE - POINT OF CARE (12/06/2022 11:50 AM ORDNANCE KEEPER) Glucose WB/POC 109 70 - 115 mg/dL 12/06/2022 11:55 AM ORDNANCE KEEPER [facility] Specimen Type Cap Fingerstick 2022 11:55 AM ORDNANCE KEEPER [facility] Blood BLOOD SPECIMEN / Unknown 12/06/2022 11:50 AM ORDNANCE KEEPER 12/06/2022 11:55 AM ORDNANCE KEEPER Branden Galindo MD LAB - POINT OF CARE ORDERABLES Performing Organization Address City/[facility]/ZIP Co de Phone Number [address] [address], [place] [phone] * (ABNORMAL) GLUCOSE - POINT OF CARE (12/06/2022 7:32 AM ORDNANCE KEEPER) Glucose WB/POC 198(H) 70 - 115 mg/dL 12/06/2022 7:37 AM [facility] Specimen Type Cap Fingerstick 2022 7:37 AM ORDNANCE KEEPER [facility] Blood BLOOD SPECIMEN / Unknown 12/06/2022 7:32 AM ORDNANCE KEEPER 12/06/2022 7:36 AM ORDNANCE KEEPER Rafa Patel MD LAB - POINT OF CARE ORDERABLES [address] [address], [place] [phone] * (ABNORMAL) GLUCOSE - POINT OF CARE (12/06/2022 4:05 AM ORDNANCE KEEPER) Glucose WB/POC 147(H) 70 - 115 mg/dL 12/06/2022 4:10 AM ORDNANCE KEEPER [facility] Specimen Type Cap Fingerstick 2022 4:10 AM [facility] Blood BLOOD SPECIMEN / Unknown 12/06/2022 4:05 AM ORDNANCE KEEPER 12/06/2022 4:10 AM [facility] Rafa Patel MD LAB - POINT OF CARE ORDERABLES [facility] [address] [place] [address], [facility] [phone] * (ABNORMAL) DIFFERENTIAL MANUAL (12/06/2022 4:01 AM [facility]) WBC (corrected for NRBC) 19.5 10? 3 /uL 12/06/2022 7:51 AM [facility] Total Cell Count 100 12/06/19 7:51 AM [facility] Neutrophils Absolute Manual 17.55(H) 1.60 - 7.00 10? 3 /uL 12/06/2022 7:51 AM [facility] Comment:(BANDS+SEGS) x WBC = NEUT # (ANC) Lymphocyte Absolute Manual 1.17 1.10 - 3.90 10? 3 /uL 12/06/2022 7:51 AM [facility] Monocytes Absolute Manual 0.39 0.26 - 1.07 10? 3 /uL 12/06/2022 7:51 AM [facility] Eosinophils Absolute Manual 0.20 0.00 - 0.47 10? 3 /uL 12/06/2022 7:51 AM [facility] Basophil Absolute Manual 0.20(H) 0.00 - 0.08 10? 3 /uL 12/06/2022 7:51 AM [facility] Neutrophil % Manual 90(H) 35 - 70 % 12/06/2022 7:51 AM [facility] Lymphocyte % Manual 6(L) 20 - 43 % 12/06/2022 7:51 AM [facility] Monocytes % Manual 2(L) 5 - 13 % 12/06/2022 7:51 AM [facility] Eosinophils % Manual 1 0 - 6 % 12/06/2022 7:51 AM [facility] Basophils % Manual 1 0 - 2 % 12/06/2022 7:51 AM [facility] Platelet Estimate Increased (A) Adequate 12/06/2022 7:51 AM [facility] Anisocytosis 1+(A) None 12/06/2022 7:51 AM [facility] Poikilocytes 1+(A) None 12/06/2022 7:51 AM [facility] Microcytes 1+(A) None 12/06/2022 7:51 AM [facility] Basophilic Stippling Occasiona l(A) None 12/06/2022 7:51 AM [facility] Target Cells 1+(A) None 12/06/2022 7:51 AM [facility] Schistocytes Occasiona l(A) None 12/06/2022 7:51 AM [facility] Carli Cells 1+(A) None 12/06/2022 7:51 AM [facility] Blood BLOOD SPECIMEN / Unknown Lab Venipuncture / Unknown 12/06/2022 4:01 AM ORDNANCE KEEPER 12/06/2022 4:10 AM [facility] Levi Cooper MD LAB - HEMATOLO GY ORDERABLES Performing Organization Address City/State/[facility] Co de Phone Number [facility] [address] [place] [address], [facility] [phone] * (ABNORMAL) CBC W AUTO DIFFERENTIAL (12/06/2022 4:01 AM ORDNANCE KEEPER) WBC 19.5(H) 3.5 - 10.5 10? 3 /uL 12/06/2022 5:04 AM [facility] RBC 3.34(L) 3.80 - 5.20 10? 6 /uL 12/06/2022 5:04 AM [facility] Hemoglobin 7.6(L) 12.0 - 15.6 g/dL 12/06/2022 5:04 AM [facility] Hematocrit 25.2(L) 35.0 - 45.0 % 12/06/2022 5:04 AM [facility] MCV 75.4(L) 80.7 - 98.3 fL 12/06/2022 5:04 AM [facility] MCH 22.8(L) 26.7 - 34.0 pg 12/06/2022 5:04 AM [facility] MCHC 30.2(L) 30.8 - 35.9 g/dL 12/06/2022 5:04 AM [facility] RDW-SD 53.1(H) 36.0 - 50.0 fL 12/06/2022 5:04 AM [facility] RDW-CV 19.7(H) 11.2 - 14.8 % 12/06/2022 5:04 AM [facility] Platelet Count 577(H) 150 - 400 10? 3 /uL 12/06/2022 5:04 AM [facility] MPV 8.9(L) 9.4 - 12.9 fL 12/06/2022 5:04 AM [facility] nRBC Absolute 0.12(H) 0 10? 3 /uL 12/06/2022 5:04 AM [facility] nRBC Auto 0.6(H) 0 /100 WBC 12/06/2022 5:04 AM [facility] Blood BLOOD SPECIMEN / Unknown Lab Venipuncture / Unknown 12/06/2022 4:01 AM ORDNANCE KEEPER 12/06/2022 4:10 AM [facility] Levi Cooper MD LAB - HEMATOLO GY ORDERABLES Performing Organization Address [facility]/State/[facility] Co de Phone Number [facility] [address] [place] [address], [facility] [phone] * (ABNORMAL) BASIC METABOLIC PANEL (CALCIUM TOTAL) (12/06/2022 4:01 AM [facility]) BUN 33(H) 7 - 26 mg/dL 12/06/2022 4:43 AM [facility] Creatinine 2.57(H) 0.56 - 0.96 mg/dL 12/06/2022 4:43 AM [facility] Sodium 140 136 - 145 mmol/L 12/06/2022 4:43 AM [facility] Potassium 3.7 3.5 - 4.5 mmol/L 12/06/2022 4:43 AM [facility] Chloride 111(H) 98 - 107 mmol/L 12/06/2022 4:43 AM [facility] CO2 20(L) 22 - 29 mmol/L 12/06/2022 4:43 AM [facility] Glucose 142(H) 70 - 115 mg/dL 12/06/2022 4:43 AM [facility] Calcium 7.4(L) 8.4 - 10.2 mg/dL 12/06/2022 4:43 AM [facility] Anion Gap 13 8 - 18 12/06/2022 4:43 AM [facility] BUN/Creatinine Ratio 13 7 - 23 12/06/2022 4:43 AM [facility] Osmolality Calculated 300 270 - 300 mOsm/kg 12/06/2022 4:43 AM [facility] eGFR by CKD-EPI 25(L) >=90 mL/min/1.7 3 m2 12/06/2022 4:43 AM [facility] Blood BLOOD SPECIMEN / Unknown Lab Venipuncture / Unknown 12/06/2022 4:01 AM ORDNANCE KEEPER 12/06/2022 4:10 AM ORDNANCE KEEPER Levi Cooper MD LAB - CHEMISTR Y ORDERABLES [address] [address], [place] [phone] * (ABNORMAL) GLUCOSE - POINT OF CARE (12/06/2022 12:17 AM ORDNANCE KEEPER) Glucose WB/POC 177(H) 70 - 115 mg/dL 12/06/2022 12:22 AM [facility] Specimen Type Cap Fingerstick 2022 12:22 AM [facility] Blood BLOOD SPECIMEN / Unknown 12/06/2022 12:17 AM ORDNANCE KEEPER 12/06/2022 12:22 AM ORDNANCE KEEPER Rafa Patel MD LAB - POINT OF CARE ORDERABLES [address] [address], [place] [phone] * (ABNORMAL) GLUCOSE - POINT OF CARE (12/05/2022 8:20 PM ORDNANCE KEEPER) Glucose WB/POC 191(H) 70 - 115 mg/dL 12/05/2022 8:26 PM ORDNANCE KEEPER [facility] Specimen Type Cap Fingerstick 2022 8:26 PM ORDNANCE KEEPER [facility] Blood BLOOD SPECIMEN / Unknown 12/05/2022 8:20 PM ORDNANCE KEEPER 12/05/2022 8:26 PM ORDNANCE KEEPER Rafa Patel MD LAB - POINT OF CARE ORDERABLES Performing Organization Address City/[facility]/ZIP Co de Phone Number [address] [address], [facility] [phone] * CHLAMYDIA + GC AMPLIFIED PROBE (12/05/2022 6:19 PM ORDNANCE KEEPER) Chlamydia Amplified Probe Negative Negative 12/06/2022 6:41 AM ORDNANCE KEEPER [facility] GC Amplified Probe Negative Negative 12/06/2022 6:41 AM ORDNANCE KEEPER [facility] Microbiology ENTIRE VAGINA / Unknown Collection / Unknown 12/05/2022 6:19 PM ORDNANCE KEEPER 12/05/2022 6:30 PM ORDNANCE KEEPER Narrative [facility] - 12/06/2022 6:41 AM ORDNANCE KEEPER Results based on detection/no detection of ribosomal RNA by amplified method. Leigh [facility] - MICROBIOLOGY O RDERAALONZO Performing Organization Address City/[facility]/ZIP Co de Phone Number [facility] [address] [place] [address], [facility] [phone] * CULTURE BLOOD (12/05/2022 5:04 PM ORDNANCE KEEPER) Pathologist [facility] Culture No growth day 5 CHARLES 12/10/2022 7:02 PM ORDNANCE KEEPER [facility] Blood PERIPHERAL BLOOD / Unknown Venipuncture / Unknown 12/05/2022 5:04 PM ORDNANCE KEEPER 12/05/2022 5:11 PM ORDNANCE KEEPER Leigh [facility] - MICROBIOLOGY O RDERAALONZO Performing Organization Address City/[facility]/ZIP Co de Phone Number [facility] [address] [place], [place] [address], [facility] [phone] * (ABNORMAL) CBC W/O DIFFERENTIAL (12/05/2022 5:03 PM [facility]) WBC 16.8(H) 3.5 - 10.5 10? 3 /uL 12/05/2022 5:23 PM [facility] RBC 2.94(L) 3.80 - 5.20 10? 6 /uL 12/05/2022 5:23 PM [facility] Hemoglobin 6.6(L) 12.0 - 15.6 g/dL 12/05/2022 5:23 PM [facility] Hematocrit 21.4(L) 35.0 - 45.0 % 12/05/2022 5:23 PM [facility] MCV 72.8(L) 80.7 - 98.3 fL 12/05/2022 5:23 PM [facility] MCH 22.4(L) 26.7 - 34.0 pg 12/05/2022 5:23 PM [facility] MCHC 30.8 30.8 - 35.9 g/dL 12/05/2022 5:23 PM [facility] RDW-SD 50.7(H) 36.0 - 50.0 fL 12/05/2022 5:23 PM [facility] RDW-CV 19.4(H) 11.2 - 14.8 % 12/05/2022 5:23 PM [facility] Platelet Count 493(H) 150 - 400 10? 3 /uL 12/05/2022 5:23 PM [facility] MPV 9.2(L) 9.4 - 12.9 fL 12/05/2022 5:23 PM [facility] nRBC Absolute 0.09(H) 0 10? 3 /uL 12/05/2022 5:23 PM [facility] nRBC Auto 0.5(H) 0 /100 WBC 12/05/2022 5:23 PM [facility] Blood BLOOD SPECIMEN / Unknown Venipuncture / Unknown 12/05/2022 5:03 PM ORDNANCE KEEPER 12/05/2022 5:14 PM ORDNANCE KEEPER Ghassan Rene MD LAB - HEMATOLOGY ORD ERABLES Performing Organization Address City/[facility]/ZIP Co de Phone Number [facility] [address] [place] [address], [place] [phone] * (ABNORMAL) GLUCOSE - POINT OF CARE (12/05/2022 5:02 PM ORDNANCE KEEPER) Glucose WB/POC 122(H) 70 - 115 mg/dL 12/05/2022 5:07 PM ORDNANCE KEEPER [facility] Specimen Type Cap Fingerstick 2022 5:07 PM ORDNANCE KEEPER [facility] Blood BLOOD SPECIMEN / Unknown 12/05/2022 5:02 PM ORDNANCE KEEPER 12/05/2022 5:07 PM ORDNANCE KEEPER Rafa Patel MD LAB - POINT OF CARE ORDERABLES Performing Organization Address [facility]/ZIP Co de Phone Number [facility] [address] [place] [address], [place] [phone] * PATHOLOGY TISSUE (12/05/2022 3:17 PM ORDNANCE KEEPER) Case Report Surgical Pathology Report ? Case: [id number] ? Authorizing Provider: ??Graeme Rodgers MD ?Collected: ? 12/05/2022 03:17 PM ? Ordering Location: ? [facility] ?Received: ?12/06/2022 07:49 AM ? Pathologist: ? Alix Hope MD ? Specimen: ?Amputation Leg AK, Left above the knee amputation ? 12/10/2022 1:45 PM [facility] Final Diagnosis Leg, left, [id number] amputation (A): - Viable bone and soft tissue margins - No necrosis or osteomyelitis at prior amputation site - Arteries free of significant atherosclerosis 12/10/2022 1:45 PM [facility] Microscopic Description and Comment Microscopic examination substantiates the final diagnosis. 12/10/2022 1:45 PM [facility] Clinical History Patient is a 32-year-old woman with poorly controlled diabetes who initially presented with necrotizing fasciitis of left foot with amputation 12/02/2022. 12/10/2022 1:45 PM [facility] Gross Description Requisition [...] arteries are are patent and mildly calcified. Italian Tutor sections are submitted as follows: A1- technical sales representatives shave of soft tissue and skin from the surgical margin closest to lesion A2-bone marrow margin A3-previous bony disarticulated A4-previous soft tissue margin A5-posterior vessels A6-anterior vessels MA 12/10/2022 1:45 PM [facility] Disclaimer The performance characteristics of all immunohistochemical and indirect immunofluorescence stains (if any) cited in this report were determined by the Histopathology Laboratory of [facility]. Some of these tests were developed [...] the attending (teaching) pathologist. 12/10/2022 1:45 PM ORDNANCE KEEPER [facility] Embedded Images 12/10/2022 1:45 PM ORDNANCE KEEPER [facility] Gross only SPECIMEN OBTAINED BY AMPUTATION / Unknown 12/05/2022 3:17 PM ORDNANCE KEEPER 12/06/2022 7:49 AM ORDNANCE KEEPER Comment:Pre-op diagnosis: Gangrene Graeme Rodgers MD LAB - PATHOLOGY/CY TOLOGY ORDERABLES Performing Organization Address [facility]/ZIP Co de Phone Number [facility] [address] [place] [address], [facility] [phone] * HCG URINE QUALITATIVE - POCT (IP) INTERFACED (12/05/2022 1:46 PM ORDNANCE KEEPER) HCG Qual Urine Negative Negative 12/05/2022 1:52 PM ORDNANCE KEEPER [facility] Urine URINE / Unknown 12/05/2022 1 :46 PM ORDNANCE KEEPER 12/05/2022 1:52 PM ORDNANCE KEEPER Rafa Patel MD LAB - POINT OF CARE ORDERABLES Performing Organization Address [facility] [facility] Co de Phone Number [address] [address], [place] [phone] * HCG URINE QUAL POCT NOTIFICATION (12/05/2022 1:39 PM ORDNANCE KEEPER) Comment Notification Label Only - See Separate Report 12/05/2022 3:02 PM ORDNANCE KEEPER [facility] Urine URINE / Unknown 12/05/2022 1 :39 PM ORDNANCE KEEPER 12/05/2022 1:41 PM ORDNANCE KEEPER Graeme Rodgers MD LAB - URINALYSIS O RDERABLES Performing Organization Address [facility]/ZIP Co de Phone Number [address] [address], [place] [phone] * (ABNORMAL) GLUCOSE - POINT OF CARE (12/05/2022 12:22 PM ORDNANCE KEEPER) Pathologist [facility] Glucose WB/POC 153(H) 70 - 115 mg/dL 12/05/2022 12:24 PM [facility] Specimen Type Cap Fingerstick 2022 12:24 PM [facility] Blood BLOOD SPECIMEN / Unknown 12/05/2022 12:22 PM ORDNANCE KEEPER 12/05/2022 12:23 PM ORDNANCE KEEPER Rafa Patel MD LAB - POINT OF CARE ORDERABLES [facility] [address] [place] [address], [facility] [phone] * (ABNORMAL) DIFFERENTIAL MANUAL (12/05/2022 10:06 AM ORDNANCE KEEPER) [facility] WBC (corrected for NRBC) 18.6 10? 3 /uL 12/05/2022 11:32 AM [facility] Total Cell Count 100 12/05/19 23 11:32 AM [facility] Neutrophils Absolute Manual 17.11(H) 1.60 - 7.00 10? 3 /uL 12/05/2022 11:32 AM [facility] Comment:(BANDS+SEGS) x WBC = NEUT # (ANC) Lymphocyte Absolute Manual 0.74(L) 1.10 - 3.90 10? 3 /uL 12/05/2022 11:32 AM [facility] Monocytes Absolute Manual 0.37 0.26 - 1.07 10? 3 /uL 12/05/2022 11:32 AM [facility] Eosinophils Absolute Manual 0.19 0.00 - 0.47 10? 3 /uL 12/05/2022 11:32 AM [facility] Neutrophil % Manual 92(H) 35 - 70 % 12/05/2022 11:32 AM [facility] Lymphocyte % Manual 4(L) 20 - 43 % 12/05/2022 11:32 AM [facility] Monocytes % Manual 2(L) 5 - 13 % 12/05/2022 11:32 AM [facility] Eosinophils % Manual 1 0 - 6 % 12/05/2022 11:32 AM [facility] Metamyelocyte % Manual 1(H) 0 % 12/05/2022 11:32 AM [facility] Platelet Estimate Increased (A) Adequate 12/05/2022 11:32 AM [facility] Anisocytosis 1+(A) None 12/05/2022 11:32 AM [facility] Microcytes Few(A) None 12/05/2022 11:32 AM [facility] Macrocytosis 1+(A) None 12/05/2022 11:32 AM [facility] Hypochromia 1+(A) None 12/05/2022 11:32 AM [facility] Polychromasia Occasiona l(A) None 12/05/2022 11:32 AM [facility] Target Cells 1+(A) None 12/05/2022 11:32 AM [facility] Ovalocytes Few(A) None 12/05/2022 11:32 AM [facility] Eldridge Cells 1+(A) None 12/05/2022 11:32 AM [facility] Blood BLOOD SPECIMEN / Unknown Lab Venipuncture / Unknown 12/05/2022 10:06 AM ORDNANCE KEEPER 12/05/2022 10:34 AM [facility] Levi Cooper MD LAB - HEMATOLO GY ORDERABLES Performing Organization Address [facility] Co de Phone Number [facility] [address] [place] [phone], [facility] [phone] * (ABNORMAL) CBC W AUTO DIFFERENTIAL (12/05/2022 10:06 AM [facility]) WBC 18.6(H) 3.5 - 10.5 10? 3 /uL 12/05/2022 10:52 AM [facility] RBC 3.51(L) 3.80 - 5.20 10? 6 /uL 12/05/2022 10:52 AM [facility] Hemoglobin 7.8(L) 12.0 - 15.6 g/dL 12/05/2022 10:52 AM [facility] Hematocrit 25.8(L) 35.0 - 45.0 % 12/05/2022 10:52 AM [facility] MCV 73.5(L) 80.7 - 98.3 fL 12/05/2022 10:52 AM [facility] MCH 22.2(L) 26.7 - 34.0 pg 12/05/2022 10:52 AM [facility] MCHC 30.2(L) 30.8 - 35.9 g/dL 12/05/2022 10:52 AM [facility] RDW-SD 52.3(H) 36.0 - 50.0 fL 12/05/2022 10:52 AM [facility] RDW-CV 19.6(H) 11.2 - 14.8 % 12/05/2022 10:52 AM [facility] Platelet Count 583(H) 150 - 400 10? 3 /uL 12/05/2022 10:52 AM [facility] MPV 8.9(L) 9.4 - 12.9 fL 12/05/2022 10:52 AM [facility] nRBC Absolute 0.14(H) 0 10? 3 /uL 12/05/2022 10:52 AM [facility] nRBC Auto 0.8(H) 0 /100 WBC 12/05/2022 10:52 AM [facility] Blood BLOOD SPECIMEN / Unknown Lab Venipuncture / Unknown 12/05/2022 10:06 AM [facility] 12/05/2022 10:34 AM [facility] Levi Cooper MD LAB - HEMATOLO GY ORDERABLES [facility] [address] [place] [phone], [facility] [phone] * (ABNORMAL) BASIC METABOLIC PANEL (CALCIUM TOTAL) (12/05/2022 10:06 AM [facility]) BUN 37(H) 7 - 26 mg/dL 12/05/2022 12:06 PM [facility] Creatinine 2.67(H) 0.56 - 0.96 mg/dL 12/05/2022 12:06 PM [facility] Sodium 138 136 - 145 mmol/L 12/05/2022 12:06 PM [facility] Potassium 3.3(L) 3.5 - 4.5 mmol/L 12/05/2022 12:06 PM [facility] Chloride 117(H) 98 - 107 mmol/L 12/05/2022 12:06 PM [facility] CO2 19(L) 22 - 29 mmol/L 12/05/2022 12:06 PM [facility] Glucose 142(H) 70 - 115 mg/dL 12/05/2022 12:06 PM [facility] Calcium 6.7(L) 8.4 - 10.2 mg/dL 12/05/2022 12:06 PM [facility] Anion Gap 5(L) 8 - 18 12/05/2022 12:06 PM [facility] BUN/Creatinine Ratio 14 7 - 23 12/05/2022 12:06 PM [facility] Osmolality Calculated 297 270 - 300 mOsm/kg 12/05/2022 12:06 PM [facility] eGFR by CKD-EPI 24(L) >=90 mL/min/1.7 3 m2 12/05/2022 12:06 PM [facility] Blood BLOOD SPECIMEN / Unknown Lab Venipuncture / Unknown 12/05/2022 10:06 AM ORDNANCE KEEPER 12/05/2022 10:34 AM [facility] Levi Cooper MD LAB - CHEMISTR Y ORDERABLES Performing Organization Address [facility] Co de Phone Number [address] [phone] [phone] * VANCOMYCIN LEVEL RANDOM (12/05/2022 10:06 AM ORDNANCE KEEPER) Vancomycin Random 19.6 Therapeutic Ranges not established for random specimens ug/mL 12/05/2022 12:06 PM [facility] Blood BLOOD SPECIMEN / Unknown Lab Venipuncture / Unknown 12/05/2022 10:06 AM ORDNANCE KEEPER 12/05/2022 10:34 AM ORDNANCE KEEPER Narrative [facility] - 12/05/2022 12:06 PM ORDNANCE KEEPER See institution protocol. Levi Cooper MD LAB - CHEMISTR Y ORDERABLES [address] [address], [place] [phone] * (ABNORMAL) GLUCOSE - POINT OF CARE (12/05/2022 8:08 AM ORDNANCE KEEPER) Glucose WB/POC 173(H) 70 - 115 mg/dL 12/05/2022 8:13 AM ORDNANCE KEEPER [facility] Specimen Type Cap Fingerstick 2022 8:13 AM ORDNANCE KEEPER [facility] Blood BLOOD SPECIMEN / Unknown 12/05/2022 8:08 AM ORDNANCE KEEPER 12/05/2022 8:12 AM ORDNANCE KEEPER Rafa Patel MD LAB - POINT OF CARE ORDERABLES Performing Organization Address City/[facility]/ZIP Co de Phone Number [address] [address], [place] [phone] * (ABNORMAL) GLUCOSE - POINT OF CARE (12/05/2022 2:17 AM ORDNANCE KEEPER) Glucose WB/POC 368(H) 70 - 115 mg/dL 12/05/2022 2:31 AM [facility] Specimen Type Cap Fingerstick 2022 2:31 AM ORDNANCE KEEPER [facility] Blood BLOOD SPECIMEN / Unknown 12/05/2022 2:17 AM ORDNANCE KEEPER 12/05/2022 2:31 AM ORDNANCE KEEPER Rafa Patel MD LAB - POINT OF CARE ORDERABLES [address] [address], [place] [phone] * (ABNORMAL) GLUCOSE - POINT OF CARE (12/04/2022 11:15 PM ORDNANCE KEEPER) Glucose WB/POC 315(H) 70 - 115 mg/dL 12/04/2022 11:17 PM ORDNANCE KEEPER [facility] Specimen Type Cap Fingerstick 2022 11:17 PM ORDNANCE KEEPER [facility] Blood BLOOD SPECIMEN / Unknown 12/04/2022 11:15 PM ORDNANCE KEEPER 12/04/2022 11:17 PM ORDNANCE KEEPER Rafa Patel MD LAB - POINT OF CARE ORDERABLES [facility] [address] [place] [phone], [place] [phone] * (ABNORMAL) GLUCOSE - POINT OF CARE (12/04/2022 8:47 PM ORDNANCE KEEPER) Glucose WB/POC 290(H) 70 - 115 mg/dL 12/04/2022 8:52 PM ORDNANCE KEEPER [facility] Specimen Type Cap Fingerstick 2022 8:52 PM ORDNANCE KEEPER [facility] Blood BLOOD SPECIMEN / Unknown 12/04/2022 8:47 PM ORDNANCE KEEPER 12/04/2022 8:51 PM ORDNANCE KEEPER Rafa Patel MD LAB - POINT OF CARE ORDERABLES Performing Organization Address City/[facility]/ZIP Co de Phone Number [facility] [address] [place] [phone], [place] [phone] * (ABNORMAL) GLUCOSE - POINT OF CARE (12/04/2022 5:10 PM ORDNANCE KEEPER) Glucose WB/POC 251(H) 70 - 115 mg/dL 12/04/2022 5:11 PM ORDNANCE KEEPER [facility] Specimen Type Cap Fingerstick 2022 5:11 PM ORDNANCE KEEPER [facility] Blood BLOOD SPECIMEN / Unknown 12/04/2022 5:10 PM ORDNANCE KEEPER 12/04/2022 5:11 PM ORDNANCE KEEPER Levi Cooper MD LAB - POINT OF CARE ORDERABLES [facility] [address] [place] [phone], [place] [phone] * MAGNESIUM BLOOD (12/04/2022 4:05 PM ORDNANCE KEEPER) Magnesium 2.3 1.6 - 2.6 mg/dL 12/04/2022 4:42 PM [facility] Blood BLOOD SPECIMEN / Unknown Lab Venipuncture / Unknown 12/04/2022 4:05 PM ORDNANCE KEEPER 12/04/2022 4:16 PM ORDNANCE KEEPER Levi Cooper MD LAB - CHEMISTR Y ORDERABLES Performing Organization Address [facility]/ZIP Co de Phone Number [facility] [address] [place] [phone], [facility] [phone] * (ABNORMAL) BASIC METABOLIC PANEL (CALCIUM TOTAL) (12/04/2022 4:05 PM ORDNANCE KEEPER) BUN 36(H) 7 - 26 mg/dL 12/04/2022 4:42 PM [facility] Creatinine 3.31(H) 0.56 - 0.96 mg/dL 12/04/2022 4:42 PM [facility] Sodium 141 136 - 145 mmol/L 12/04/2022 4:42 PM [facility] Potassium 4.3 3.5 - 4.5 mmol/L 12/04/2022 4:42 PM [facility] Chloride 109(H) 98 - 107 mmol/L 12/04/2022 4:42 PM [facility] CO2 16(L) 22 - 29 mmol/L 12/04/2022 4:42 PM [facility] Glucose 238(H) 70 - 115 mg/dL 12/04/2022 4:42 PM [facility] Calcium 7.3(L) 8.4 - 10.2 mg/dL 12/04/2022 4:42 PM [facility] Anion Gap 20(H) 8 - 18 12/04/2022 4:42 PM [facility] BUN/Creatinine Ratio 11 7 - 23 12/04/2022 4:42 PM [facility] Osmolality Calculated 308(H) 270 - 300 mOsm/kg 12/04/2022 4:42 PM [facility] eGFR by CKD-EPI 18(L) >=90 mL/min/1.7 3 m2 12/04/2022 4:42 PM [facility] Blood BLOOD SPECIMEN / Unknown Lab Venipuncture / Unknown 12/04/2022 4:05 PM ORDNANCE KEEPER 12/04/2022 4:16 PM ORDNANCE KEEPER Levi Cooper MD LAB - CHEMISTR Y ORDERABLES [facility] [address] [place] [phone], [place] [phone] * (ABNORMAL) GLUCOSE - POINT OF CARE (12/04/2022 11:40 AM ORDNANCE KEEPER) Glucose WB/POC 246(H) 70 - 115 mg/dL 12/04/2022 11:42 AM [facility] Specimen Type Cap Fingerstick 2022 11:42 AM [facility] Blood BLOOD SPECIMEN / Unknown 12/04/2022 11:40 AM ORDNANCE KEEPER 12/04/2022 11:42 AM ORDNANCE KEEPER Levi Cooper MD LAB - POINT OF CARE ORDERABLES Performing Organization Address City/[facility]/ZIP Co de Phone Number [facility] [address] [place] [phone], [place] [phone] * (ABNORMAL) GLUCOSE - POINT OF CARE (12/04/2022 8:09 AM ORDNANCE KEEPER) Glucose WB/POC 252(H) 70 - 115 mg/dL 12/04/2022 8:10 AM [facility] Specimen Type Cap Fingerstick 2022 8:10 AM [facility] Blood BLOOD SPECIMEN / Unknown 12/04/2022 8:09 AM ORDNANCE KEEPER 12/04/2022 8:10 AM ORDNANCE KEEPER Levi Cooper MD LAB - POINT OF CARE ORDERABLES [facility] [address] [place] [phone], [place] [phone] * VANCOMYCIN LEVEL RANDOM (12/04/2022 3:58 AM ORDNANCE KEEPER) Vancomycin Random 18.8 Therapeutic Ranges not established for random specimens ug/mL 12/04/2022 4:34 AM ORDNANCE KEEPER [facility] Blood BLOOD SPECIMEN / Unknown Venipuncture / Unknown 12/04/2022 3:58 AM ORDNANCE KEEPER 12/04/2022 4:03 AM ORDNANCE KEEPER Narrative [facility] - 12/04/2022 4:34 AM ORDNANCE KEEPER See institution protocol. Geronimo Ho MD LAB - CHEMISTRY OR DERABLES [address] [address], [facility] [phone] * PHOSPHORUS BLOOD (12/04/2022 3:58 AM ORDNANCE KEEPER) [facility] Phosphorus 5.1 2.9 - 5.1 mg/dL 12/04/2022 4:34 AM ORDNANCE KEEPER [facility] Blood BLOOD SPECIMEN / Unknown Venipuncture / Unknown 12/04/2022 3:58 AM ORDNANCE KEEPER 12/04/2022 4:03 AM ORDNANCE KEEPER Levi Cooper MD LAB - CHEMISTR Y ORDERABLES Performing Organization Address [facility]/ZIP Co de Phone Number [address] [address], [place] [phone] * MAGNESIUM BLOOD (12/04/2022 3:58 AM ORDNANCE KEEPER) Pathologist [facility] Magnesium 2.3 1.6 - 2.6 mg/dL 12/04/2022 4:34 AM ORDNANCE KEEPER [facility] Blood BLOOD SPECIMEN / Unknown Venipuncture / Unknown 12/04/2022 3:58 AM ORDNANCE KEEPER 12/04/2022 4:03 AM ORDNANCE KEEPER Levi Cooper MD LAB - CHEMISTR Y ORDERABLES [address] [address], [place] [phone] * (ABNORMAL) CBC W AUTO DIFFERENTIAL (12/04/2022 3:58 AM ORDNANCE KEEPER) WBC 24.8(H) 3.5 - 10.5 10? 3 /uL 12/04/2022 4:11 AM [facility] RBC 3.65(L) 3.80 - 5.20 10? 6 /uL 12/04/2022 4:11 AM [facility] Hemoglobin 8.2(L) 12.0 - 15.6 g/dL 12/04/2022 4:11 AM [facility] Hematocrit 28.0(L) 35.0 - 45.0 % 12/04/2022 4:11 AM [facility] MCV 76.7(L) 80.7 - 98.3 fL 12/04/2022 4:11 AM [facility] MCH 22.5(L) 26.7 - 34.0 pg 12/04/2022 4:11 AM [facility] MCHC 29.3(L) 30.8 - 35.9 g/dL 12/04/2022 4:11 AM [facility] RDW-SD 54.7(H) 36.0 - 50.0 fL 12/04/2022 4:11 AM [facility] RDW-CV 19.9(H) 11.2 - 14.8 % 12/04/2022 4:11 AM [facility] Platelet Count 446(H) 150 - 400 10? 3 /uL 12/04/2022 4:11 AM [facility] MPV 8.7(L) 9.4 - 12.9 fL 12/04/2022 4:11 AM [facility] nRBC Absolute 0.06(H) 0 10? 3 /uL 12/04/2022 4:11 AM [facility] nRBC Auto 0.2(H) 0 /100 WBC 12/04/2022 4:11 AM [facility] Neutrophils % 79.0(H) 35.0 - 70.0 % 12/04/2022 4:11 AM [facility] Lymphocytes % 9.2(L) 20.0 - 43.0 % 12/04/2022 4:11 AM [facility] Monocytes % 5.8 5.0 - 13.0 % 12/04/2022 4:11 AM [facility] Eosinophils % 1.2 0.0 - 6.0 % 12/04/2022 4:11 AM [facility] Basophil % 0.4 0.0 - 2.0 % 12/04/2022 4:11 AM [facility] Neutrophils Absolute 19.59(H) 1.60 - 7.00 10? 3 /uL 12/04/2022 4:11 AM [facility] Lymphocyte Absolute 2.29 1.10 - 3.90 10? 3 /uL 12/04/2022 4:11 AM [facility] Monocytes Absolute 1.43(H) 0.26 - 1.07 10? 3 /uL 12/04/2022 4:11 AM [facility] Eosinophils Absolute 0.29 0.00 - 0.47 10? 3 /uL 12/04/2022 4:11 AM [facility] Basophils Absolute 0.10(H) 0.00 - 0.08 10? 3 /uL 12/04/2022 4:11 AM [facility] Immature Granulocytes % 4.4(H) 0.0 - 1.0 % 12/04/2022 4:11 AM [facility] Immature Granulocytes Absolute 1.09 12/04/2022 4:11 AM [facility] Blood BLOOD SPECIMEN / Unknown Venipuncture / Unknown 12/04/2022 3:58 AM ORDNANCE KEEPER 12/04/2022 4:03 AM [facility] Levi Cooper MD LAB - HEMATOLO GY ORDERABLES Performing Organization Address City/State/[facility] Co de Phone Number [facility] [address] [place] [address], [facility] [phone] * (ABNORMAL) BASIC METABOLIC PANEL (CALCIUM TOTAL) (12/04/2022 3:58 AM [facility]) BUN 35(H) 7 - 26 mg/dL 12/04/2022 4:34 AM [facility] Creatinine 3.24(H) 0.56 - 0.96 mg/dL 12/04/2022 4:34 AM [facility] Sodium 137 136 - 145 mmol/L 12/04/2022 4:34 AM [facility] Potassium 3.6 3.5 - 4.5 mmol/L 12/04/2022 4:34 AM [facility] Chloride 108(H) 98 - 107 mmol/L 12/04/2022 4:34 AM [facility] CO2 17(L) 22 - 29 mmol/L 12/04/2022 4:34 AM [facility] Glucose 210(H) 70 - 115 mg/dL 12/04/2022 4:34 AM [facility] Calcium 7.3(L) 8.4 - 10.2 mg/dL 12/04/2022 4:34 AM [facility] Anion Gap 16 8 - 18 12/04/2022 4:34 AM [facility] BUN/Creatinine Ratio 11 7 - 23 12/04/2022 4:34 AM [facility] Osmolality Calculated 298 270 - 300 mOsm/kg 12/04/2022 4:34 AM [facility] eGFR by CKD-EPI 19(L) >=90 mL/min/1.7 3 m2 12/04/2022 4:34 AM [facility] Blood BLOOD SPECIMEN / Unknown Venipuncture / Unknown 12/04/2022 3:58 AM ORDNANCE KEEPER 12/04/2022 4:03 AM ORDNANCE KEEPER Levi Cooper MD LAB - CHEMISTR Y ORDERABLES Performing Organization Address City/[facility]/ZIP Co de Phone Number [facility] [address] [place] [address], [facility] [phone] * (ABNORMAL) GLUCOSE - POINT OF CARE (12/03/2022 11:18 PM ORDNANCE KEEPER) Glucose WB/POC 229(H) 70 - 115 mg/dL 12/03/2022 11:22 PM [facility] Specimen Type Venous 12/03/2022 11:22 PM [facility] Blood BLOOD SPECIMEN / Unknown 12/03/2022 11:18 PM ORDNANCE KEEPER 12/03/2022 11:22 PM ORDNANCE KEEPER Levi Cooper MD LAB - POINT OF CARE ORDERABLES [facility] [address] [place] [address], [facility] [phone] * (ABNORMAL) BASIC METABOLIC PANEL (CALCIUM TOTAL) (12/03/2022 11:13 PM ORDNANCE KEEPER) BUN 33(H) 7 - 26 mg/dL 12/03/2022 11:57 PM [facility] Creatinine 3.18(H) 0.56 - 0.96 mg/dL 12/03/2022 11:57 PM [facility] Sodium 134(L) 136 - 145 mmol/L 12/03/2022 11:57 PM [facility] Potassium 3.6 3.5 - 4.5 mmol/L 12/03/2022 11:57 PM [facility] Chloride 106 98 - 107 mmol/L 12/03/2022 11:57 PM [facility] CO2 18(L) 22 - 29 mmol/L 12/03/2022 11:57 PM [facility] Glucose 217(H) 70 - 115 mg/dL 12/03/2022 11:57 PM [facility] Calcium 7.3(L) 8.4 - 10.2 mg/dL 12/03/2022 11:57 PM [facility] Anion Gap 14 8 - 18 12/03/2022 11:57 PM [facility] BUN/Creatinine Ratio 10 7 - 23 12/03/2022 11:57 PM [facility] Osmolality Calculated 292 270 - 300 mOsm/kg 12/03/2022 11:57 PM [facility] eGFR by CKD-EPI 19(L) >=90 mL/min/1.7 3 m2 12/03/2022 11:57 PM [facility] Blood BLOOD SPECIMEN / Unknown Venipuncture / Unknown 12/03/2022 11:13 PM [facility] 12/03/2022 11:25 PM [facility] Levi Cooper MD LAB - CHEMISTR Y ORDERABLES [facility] [address] [place] [address], [facility] [phone] * (ABNORMAL) DIFFERENTIAL MANUAL (12/03/2022 6:57 PM [facility]) WBC (corrected for NRBC) 35.3 10? 3 /uL 12/03/2022 8:09 PM [facility] Total Cell Count 100 12/03/19 23 8:09 PM [facility] Neutrophils Absolute Manual 29.65(H) 1.60 - 7.00 10? 3 /uL 12/03/2022 8:09 PM [facility] Comment:(BANDS+SEGS) x WBC = NEUT # (ANC) Lymphocyte Absolute Manual 3.53 1.10 - 3.90 10? 3 /uL 12/03/2022 8:09 PM [facility] Monocytes Absolute Manual 2.12(H) 0.26 - 1.07 10? 3 /uL 12/03/2022 8:09 PM [facility] Band % Manual 1 0 - 10 % 12/03/2022 8:09 PM [facility] Neutrophil % Manual 83(H) 35 - 70 % 12/03/2022 8:09 PM [facility] Lymphocyte % Manual 10(L) 20 - 43 % 12/03/2022 8:09 PM [facility] Monocytes % Manual 6 5 - 13 % 12/03/2022 8:09 PM [facility] nRBC Manual 1(H) 0 /100 WBC 12/03/2022 8:09 PM [facility] Platelet Estimate Slightly Increased(A ) Adequate 12/03/2022 8:09 PM [facility] Anisocytosis 1+(A) None 12/03/2022 8:09 PM [facility] Microcytes 1+(A) None 12/03/2022 8:09 PM [facility] Hypochromia Few(A) None 12/03/2022 8:09 PM [facility] Polychromasia Rare(A) None 12/03/2022 8:09 PM [facility] Target Cells 1+(A) None 12/03/2022 8:09 PM [facility] Schistocytes Few(A) None 12/03/2022 8:09 PM [facility] Ovalocytes Occasional( A) None 12/03/2022 8:09 PM [facility] Blood BLOOD SPECIMEN / Unknown Venipuncture / Unknown 12/03/2022 6:57 PM [facility] 12/03/2022 6:57 PM [facility] Levi Cooper MD LAB - HEMATOLO GY ORDERABLES Performing Organization Address [facility]/State/ZIP Co de Phone Number [facility] [address] [place] [id number], [facility] [phone] * (ABNORMAL) CBC W AUTO DIFFERENTIAL (12/03/2022 6:57 PM [facility]) WBC 35.3(H) 3.5 - 10.5 10? 3 /uL 12/03/2022 7:10 PM [facility] RBC 3.58(L) 3.80 - 5.20 10? 6 /uL 12/03/2022 7:10 PM [facility] Hemoglobin 8.2(L) 12.0 - 15.6 g/dL 12/03/2022 7:10 PM [facility] Hematocrit 26.0(L) 35.0 - 45.0 % 12/03/2022 7:10 PM [facility] MCV 72.6(L) 80.7 - 98.3 fL 12/03/2022 7:10 PM [facility] MCH 22.9(L) 26.7 - 34.0 pg 12/03/2022 7:10 PM [facility] MCHC 31.5 30.8 - 35.9 g/dL 12/03/2022 7:10 PM [facility] RDW-SD 49.9 36.0 - 50.0 fL 12/03/2022 7:10 PM [facility] RDW-CV 19.0(H) 11.2 - 14.8 % 12/03/2022 7:10 PM [facility] Platelet Count 474(H) 150 - 400 10? 3 /uL 12/03/2022 7:10 PM [facility] MPV 9.2(L) 9.4 - 12.9 fL 12/03/2022 7:10 PM [facility] nRBC Absolute 0.04(H) 0 10? 3 /uL 12/03/2022 7:10 PM ORDNANCE KEEPER [facility] nRBC Auto 0.1(H) 0 /100 WBC 12/03/2022 7:10 PM ORDNANCE KEEPER [facility] Blood BLOOD SPECIMEN / Unknown Venipuncture / Unknown 12/03/2022 6:57 PM ORDNANCE KEEPER 12/03/2022 6:57 PM ORDNANCE KEEPER Levi Cooper MD LAB - HEMATOLO GY ORDERABLES Performing Organization Address City/[facility]/ZIP Co de Phone Number [address] [address], [place] [phone] * LACTIC ACID BLOOD (12/03/2022 6:57 PM ORDNANCE KEEPER) Pathologist [facility] Lactic Acid-Stat 0.7 <=2.0 mmol/L 12/03/2022 7:23 PM ORDNANCE KEEPER [facility] Blood BLOOD SPECIMEN / Unknown Venipuncture / Unknown 12/03/2022 6:57 PM ORDNANCE KEEPER 12/03/2022 6:58 PM ORDNANCE KEEPER Levi Cooper MD LAB - CHEMISTR Y ORDERABLES Performing Organization Address [facility]/ZIP Co de Phone Number [address] [address], [place] [phone] * VANCOMYCIN LEVEL RANDOM (12/03/2022 6:57 PM ORDNANCE KEEPER) Pathologist [facility] Vancomycin Random 20.8 Therapeutic Ranges not established for random specimens ug/mL 12/03/2022 7:25 PM ORDNANCE KEEPER [facility] Blood BLOOD SPECIMEN / Unknown Venipuncture / Unknown 12/03/2022 6:57 PM ORDNANCE KEEPER 12/03/2022 6:57 PM ORDNANCE KEEPER Narrative [facility] - 12/03/2022 7:25 PM ORDNANCE KEEPER See institution protocol. Himanshu Espino MD LAB - CHEMISTRY DIVINA OLVERA Performing Organization Address City/[facility]/ZIP Co de Phone Number [address] [address], [place] [phone] * (ABNORMAL) BLOOD GASES SUZANNE + COOX PANEL (12/03/2022 6:56 PM [facility]) pH Venous 7.28(L) 7.32 - 7.42 pH 12/03/2022 6:59 PM [facility] pO2 Venous 88(H) 35 - 40 mmHg 12/03/2022 6:59 PM [facility] pCO2 Venous 44 40 - 50 mmHg 12/03/2022 6:59 PM [facility] HCO3 Venous 20.7 20 - 30 mmol/L 12/03/2022 6:59 PM [facility] Base Excess Venous -5.7(L) -2.0 - 2.0 mmol/L 12/03/2022 6:59 PM [facility] Oxyhemoglobin Venous 95.0 % 11/05 6:59 PM [facility] Deoxyhemoglobin (HHB) Venous % 2.5 % 12/03/2022 6:59 PM [facility] Methemoglobin <0.8 0.0 - 2.0 % 12/03/2022 6:59 PM [facility] Carboxyhemoglobin 2.0 0.0 - 2.0 % 2022 6:59 PM [facility] O2 Content Venous 11.8 Interpret within clinical context ml/dL 12/03/2022 6:59 PM [facility] Hemoglobin by COOX 8.7(L) 12.0 - 15.6 g/dL 12/03/2022 6:59 PM [facility] O2 Saturation Venous 97 >=70 % 11/05 6:59 PM [facility] FI O2 Mixed Venous 28.0 % 2022 6:59 PM [facility] Blood BLOOD SPECIMEN / Unknown Venipuncture / Unknown 12/03/2022 6:56 PM ORDNANCE KEEPER 12/03/2022 6:56 PM [facility] - 12/03/2022 6:59 PM [facility] Carboxyhemoglobin Normal Concentration: Non-smokers: 0-2%; Smokers: 0-9%; Toxic: >20% Levi Cooper MD LAB - BLOOD GA SES ORDERABLES Performing Organization Address City/[facility]/ZIP Co de Phone Number [facility] [address] [place] [address], [place] [phone] * (ABNORMAL) GLUCOSE - POINT OF CARE (12/03/2022 6:22 PM ORDNANCE KEEPER) Glucose WB/POC 197(H) 70 - 115 mg/dL 12/03/2022 6:26 PM [facility] Specimen Type Cap Fingerstick 2022 6:26 PM [facility] Blood BLOOD SPECIMEN / Unknown 12/03/2022 6:22 PM ORDNANCE KEEPER 12/03/2022 6:26 PM ORDNANCE KEEPER Levi Cooper MD LAB - POINT OF CARE ORDERABLES Performing Organization Address [facility]/ZIP Co de Phone Number [address] [address], [facility] [phone] * (ABNORMAL) BASIC METABOLIC PANEL (CALCIUM TOTAL) (12/03/2022 5:07 PM ORDNANCE KEEPER) BUN 31(H) 7 - 26 mg/dL 12/03/2022 5:45 PM [facility] Creatinine 3.14(H) 0.56 - 0.96 mg/dL 12/03/2022 5:45 PM [facility] Sodium 137 136 - 145 mmol/L 12/03/2022 5:45 PM [facility] Potassium 3.6 3.5 - 4.5 mmol/L 12/03/2022 5:45 PM [facility] Chloride 107 98 - 107 mmol/L 12/03/2022 5:45 PM [facility] CO2 15(L) 22 - 29 mmol/L 12/03/2022 5:45 PM [facility] Glucose 166(H) 70 - 115 mg/dL 12/03/2022 5:45 PM [facility] Calcium 7.5(L) 8.4 - 10.2 mg/dL 12/03/2022 5:45 PM [facility] Anion Gap 19(H) 8 - 18 12/03/2022 5:45 PM [facility] BUN/Creatinine Ratio 10 7 - 23 12/03/2022 5:45 PM [facility] Osmolality Calculated 294 270 - 300 mOsm/kg 12/03/2022 5:45 PM [facility] eGFR by CKD-EPI 20(L) >=90 mL/min/1.7 3 m2 12/03/2022 5:45 PM [facility] Blood BLOOD SPECIMEN / Unknown Venipuncture / Unknown 12/03/2022 5:07 PM ORDNANCE KEEPER 12/03/2022 5:17 PM ORDNANCE KEEPER Levi Cooper MD LAB - CHEMISTR Y ORDERABLES [address] [address], [place] [phone] * UREA NITROGEN URINE RANDOM (12/03/2022 4:59 PM ORDNANCE KEEPER) Urea Nitrogen Random Urine 397 Not Established mg/dL 12/03/2022 5:59 PM [facility] Urine URINE SPECIMEN OBTAINED BY CLEAN CATCH PROCEDURE / Unknown Collection / Unknown 12/03/2022 4:59 PM ORDNANCE KEEPER 12/03/2022 5:14 PM ORDNANCE KEEPER Graeme Rodgers MD LAB - URINE CHEMIS TRY ORDERABLES Performing Organization Address City/[facility]/ZIP Co de Phone Number [address] [address], [place] [phone] * (ABNORMAL) URINALYSIS REFLEX TO MICROSCOPIC NO CULTURE (12/03/2022 4:59 PM ORDNANCE KEEPER) Color UA Lesly(A) Straw, Yellow 12/03/2022 5:57 PM [facility] Clarity UA Slt Cloudy(A) Clear 12/03/2022 5:57 PM [facility] Specific [place] UA 1.025 1.005 - 1.030 12/03/2022 5:57 PM [facility] pH UA 5.0 5.0 - 8.0 pH 12/03/2022 5:57 PM [facility] Protein UA 3+(A) Negative 12/03/2022 5:57 PM [facility] Glucose UA Negative Negative 12/03/2022 5:57 PM [facility] Ketone UA Negative Negative 12/03/2022 5:57 PM [facility] Bilirubin UA 2+(A) Negative 12/03/2022 5:57 PM [facility] Comment:Urine Bilirubin resu lt confirmed by manual Ictotest. Blood UA 2+(A) Negative 12/03/2022 5:57 PM [facility] Nitrite UA Negative Negative 12/03/2022 5:57 PM [facility] Leukocyte Esterase Negative Negative 12/03/2022 5:57 PM [facility] Urobilinogen UA Negative Negative mg/dL 12/03/2022 5:57 PM [facility] RBC UA 11-20(A) None Seen, 0-2, 3-5 /HPF 12/03/2022 5:57 PM [facility] WBC UA 6-10(A) None Seen, 0-5 /HPF 12/03/2022 5:57 PM [facility] Bacteria UA Trace(A) None /HPF 12/03/2022 5:57 PM [facility] Squamous Epithelial Cells UA 3-5 None Seen, 0-2, 3-5 /HPF 12/03/2022 5:57 PM [facility] Mucus UA 1+ /LPF 12/03/2022 5:57 PM [facility] Hyaline Casts UA 6-10(A) None Seen, 0-2 /LPF 12/03/2022 5:57 PM [facility] Granular Casts UA 3-5(A) None Seen /LPF 12/03/2022 5:57 PM [facility] Amorphous Crystals Rare(A) None /HPF 12/03/2022 5:57 PM [facility] Urine URINE SPECIMEN OBTAINED BY CLEAN CATCH PROCEDURE / Unknown Collection / Unknown 12/03/2022 4:59 PM ORDNANCE KEEPER 12/03/2022 5:14 PM ORDNANCE KEEPER [facility] - 12/03/2022 5:57 PM ORDNANCE KEEPER Graeme Rodgers MD LAB - URINALYSIS O RDERABLES [address] [address], [place] [phone] * CREATININE URINE RANDOM (12/03/2022 4:59 PM ORDNANCE KEEPER) Creatinine Urine 227 Not Established mg/dL 12/03/2022 6:01 PM [facility] Urine URINE SPECIMEN OBTAINED BY CLEAN CATCH PROCEDURE / Unknown Collection / Unknown 12/03/2022 4:59 PM ORDNANCE KEEPER 12/03/2022 5:14 PM ORDNANCE KEEPER Himanshu Espino MD LAB - URINE CHEMISTR Y ORDERABLES Performing Organization Address [facility] Co de Phone Number [address] [address], [facility] [phone] * LYTES (NA K CL) URINE RANDOM PANEL (12/03/2022 4:59 PM ORDNANCE KEEPER) Sodium Urine <20 Not Established mmol/L 12/03/2022 6:01 PM [facility] Potassium Urine 26.9 Not Established mmol/L 12/03/2022 6:01 PM [facility] Chloride Random Urine <20 Not Established mmol/L 12/03/2022 6:01 PM [facility] Urine URINE SPECIMEN OBTAINED BY CLEAN CATCH PROCEDURE / Unknown Collection / Unknown 12/03/2022 4:59 PM ORDNANCE KEEPER 12/03/2022 5:14 PM ORDNANCE KEEPER Himanshu Espino MD LAB - URINE CHEMISTR Y ORDERABLES Performing Organization Address [facility]/ZIP Co de Phone Number [address] [address], [place] [phone] * (ABNORMAL) GLUCOSE - POINT OF CARE (12/03/2022 1:29 PM ORDNANCE KEEPER) Glucose WB/POC 156(H) 70 - 115 mg/dL 12/03/2022 1:34 PM [facility] Specimen Type Cap Fingerstick 2022 1:34 PM [facility] Blood BLOOD SPECIMEN / Unknown 12/03/2022 1:29 PM ORDNANCE KEEPER 12/03/2022 1:34 PM ORDNANCE KEEPER Levi Cooper MD LAB - POINT OF CARE ORDERABLES Performing Organization Address [facility]/ZIP Co de Phone Number [address] [address], [place] [phone] * (ABNORMAL) HEMOGLOBIN (12/03/2022 9:43 AM ORDNANCE KEEPER) [facility] Hemoglobin 8.2(L) 12.0 - 15.6 g/dL 12/03/2022 9:58 AM ORDNANCE KEEPER [facility] Blood BLOOD SPECIMEN / Unknown Venipuncture / Unknown 12/03/2022 9:43 AM ORDNANCE KEEPER 12/03/2022 9:47 AM ORDNANCE KEEPER Tommie Echevarria MD LAB - HEMATOLOGY ORD ERABLES Performing Organization Address [facility] Co de Phone Number [address] [address], [place] [phone] * (ABNORMAL) GLUCOSE - POINT OF CARE (12/03/2022 7:40 AM ORDNANCE KEEPER) [facility] Glucose WB/POC 130(H) 70 - 115 mg/dL 12/03/2022 7:41 AM ORDNANCE KEEPER [facility] Specimen Type Cap Fingerstick 2022 7:41 AM ORDNANCE KEEPER [facility] Blood BLOOD SPECIMEN / Unknown 12/03/2022 7:40 AM ORDNANCE KEEPER 12/03/2022 7:41 AM ORDNANCE KEEPER Tommie Echevarria MD LAB - POINT OF CARE ORDERABLES Performing Organization Address [facility]/ZIP Co de Phone Number [address] [address], [place] [phone] * PREPARE (CROSSMATCH) RBC UNIT(S), 1 Units (12/03/2022 5:34 AM ORDNANCE KEEPER) [facility] Unit Description AS1 LR PRBC [facility] Unit ABO A [facility] Unit Rh POS [facility] Product Number R44 [facility] LO[facility] Unit Donor # [id number] [facility] Unit Status transfused [facility] Product Code [id number] [facility] OD [facility]ANK LAB Blood Type Barcode 6200 [facility] Expiration Date [id number] S BLOOD BANK LAB Blood Bank BLOOD SPECIMEN / Unknown 12/03/2022 2:48 AM ORDNANCE KEEPER Tommie Echevarria MD LAB - BLOOD BANK ORD ERABLES Performing Organization Address City/[facility]/ZIP Co de Phone Number [facility] [address] [place] [address], [facility] [phone] * BLOOD TYPE VERIFICATION (12/03/2022 4:10 AM ORDNANCE KEEPER) ABO Rh A POS 12/03/2022 4:4 9 AM ORDNANCE KEEPER [facility] Blood Bank BLOOD SPECIMEN / Unknown Venipuncture / Unknown 12/03/2022 4:10 AM ORDNANCE KEEPER 12/03/2022 4:18 AM ORDNANCE KEEPER Gail Montero MD LAB - BLOOD BANK ORD ERABLES Performing Organization Address [facility]/ZIP Co de Phone Number [facility] [address] [place] [address], [place] [phone] * EKG 12-LEAD (12/03/2022 3:00 AM ORDNANCE KEEPER) Ventricular Rate 77 BPM [facility] MUSE Atrial Rate 77 BPM [facility] P-R Interval 154 ms [facility] QRS Duration ms 88 ms [facility] Q-T Interval ms 416 ms [facility] QTC Calculation (Bezet) 470 ms [facility] Calculated P [place] 44 degrees [facility] Calculated R [place] 14 degrees [facility] Calculated T [place] 23 degrees [facility] Interpretation EKG NORMAL SINUS RHYTHM NORMAL ECG WHEN COMPARED WITH ECG OF 21-aug-2022 NO SIGNIFICANT CHANGE WAS FOUND Confirmed by HIRAL HIGGINS MD ([id number]) on 12/09/2022 1:25:51 PM [facility] MUSE 12/03/2022 3:00 AM ORDNANCE KEEPER 12/09/2022 1:25 PM ORDNANCE KEEPER Trisha Rodríguez PA-C ECG ORDERABLES [facility] M[facility] * (ABNORMAL) DIFFERENTIAL MANUAL (12/03/2022 2:42 AM ORDNANCE KEEPER) WBC (corrected for NRBC) 37.1 10? 3 /uL 12/03/2022 3:27 AM [facility] Total Cell Count 100 12/03/19 23 3:27 AM [facility] Neutrophils Absolute Manual 34.50(H) 1.60 - 7.00 10? 3 /uL 12/03/2022 3:27 AM [facility] Comment:(BANDS+SEGS) x WBC = NEUT # (ANC) Lymphocyte Absolute Manual 1.48 1.10 - 3.90 10? 3 /uL 12/03/2022 3:27 AM [facility] Monocytes Absolute Manual 1.11(H) 0.26 - 1.07 10? 3 /uL 12/03/2022 3:27 AM [facility] Band % Manual 2 0 - 10 % 12/03/2022 3:27 AM [facility] Neutrophil % Manual 91(H) 35 - 70 % 12/03/2022 3:27 AM [facility] Lymphocyte % Manual 4(L) 20 - 43 % 12/03/2022 3:27 AM [facility] Monocytes % Manual 3(L) 5 - 13 % 12/03/2022 3:27 AM [facility] Platelet Estimate Increased (A) Adequate 12/03/2022 3:27 AM [facility] Anisocytosis 1+(A) None 12/03/2022 3:27 AM [facility] Microcytes 2+(A) None 12/03/2022 3:27 AM [facility] Target Cells 2+(A) None 12/03/2022 3:27 AM [facility] Carli Cells 1+(A) None 12/03/2022 3:27 AM [facility] Blood BLOOD SPECIMEN / Unknown Venipuncture / Unknown 12/03/2022 2:42 AM ORDNANCE KEEPER 12/03/2022 2:48 AM ORDNANCE KEEPER Narrative Authorizing Provider Result Alexis Rodgers MD LAB - HEMATOLOGY O RDERABLES Performing Organization Address [facility] Co de Phone Number [address] [address], [place] [phone] * PHOSPHORUS BLOOD (12/03/2022 2:42 AM ORDNANCE KEEPER) Phosphorus 4.4 2.9 - 5.1 mg/dL 12/03/2022 3:46 AM ORDNANCE KEEPER [facility] Blood BLOOD SPECIMEN / Unknown Venipuncture / Unknown 12/03/2022 2:42 AM ORDNANCE KEEPER 12/03/2022 2:48 AM ORDNANCE KEEPER Narrative Authorizing Provider Result Alexis Rodgers MD LAB - CHEMISTRY OR DERABLES Performing Organization Address [facility] Co de Phone Number [address] [address], [place] [phone] * MAGNESIUM BLOOD (12/03/2022 2:42 AM ORDNANCE KEEPER) Magnesium 2.2 1.6 - 2.6 mg/dL 12/03/2022 3:46 AM ORDNANCE KEEPER [facility] Blood BLOOD SPECIMEN / Unknown Venipuncture / Unknown 12/03/2022 2:42 AM ORDNANCE KEEPER 12/03/2022 2:48 AM ORDNANCE KEEPER Narrative Authorizing Provider Result Alexis Rodgers MD LAB - CHEMISTRY OR DERABLES Performing Organization Address [facility] Co de Phone Number [address] [address], [place] [phone] * (ABNORMAL) BASIC METABOLIC PANEL (CALCIUM TOTAL) (12/03/2022 2:42 AM ORDNANCE KEEPER) BUN 30(H) 7 - 26 mg/dL 12/03/2022 3:46 AM ORDNANCE KEEPER [facility] Creatinine 2.91(H) 0.56 - 0.96 mg/dL 12/03/2022 3:46 AM ORDNANCE KEEPER [facility] Sodium 134(L) 136 - 145 mmol/L 12/03/2022 3:46 AM [facility] Potassium 3.5 3.5 - 4.5 mmol/L 12/03/2022 3:46 AM [facility] Chloride 106 98 - 107 mmol/L 12/03/2022 3:46 AM [facility] CO2 18(L) 22 - 29 mmol/L 12/03/2022 3:46 AM [facility] Glucose 114 70 - 115 mg/dL 12/03/2022 3:46 AM [facility] Calcium 7.3(L) 8.4 - 10.2 mg/dL 12/03/2022 3:46 AM [facility] Anion Gap 14 8 - 18 12/03/2022 3:46 AM [facility] BUN/Creatinine Ratio 10 7 - 23 12/03/2022 3:46 AM [facility] Osmolality Calculated 285 270 - 300 mOsm/kg 12/03/2022 3:46 AM [facility] eGFR by CKD-EPI 22(L) >=90 mL/min/1.7 3 m2 12/03/2022 3:46 AM [facility] Blood BLOOD SPECIMEN / Unknown Venipuncture / Unknown 12/03/2022 2:42 AM ORDNANCE KEEPER 12/03/2022 2:48 AM [facility] Graeme Rodgers MD LAB - CHEMISTRY OR DERABLES Performing Organization Address [facility]/State/[facility] Co de Phone Number [facility] [address] [place] [phone] [phone] * (ABNORMAL) CBC W AUTO DIFFERENTIAL (12/03/2022 2:42 AM [facility]) WBC 37.1(H) 3.5 - 10.5 10? 3 /uL 12/03/2022 3:01 AM [facility] RBC 3.08(L) 3.80 - 5.20 10? 6 /uL 12/03/2022 3:01 AM [facility] Hemoglobin 6.8(L) 12.0 - 15.6 g/dL 12/03/2022 3:01 AM [facility] Hematocrit 22.3(L) 35.0 - 45.0 % 12/03/2022 3:01 AM [facility] MCV 72.4(L) 80.7 - 98.3 fL 12/03/2022 3:01 AM [facility] MCH 22.1(L) 26.7 - 34.0 pg 12/03/2022 3:01 AM [facility] MCHC 30.5(L) 30.8 - 35.9 g/dL 12/03/2022 3:01 AM [facility] RDW-SD 50.5(H) 36.0 - 50.0 fL 12/03/2022 3:01 AM [facility] RDW-CV 19.5(H) 11.2 - 14.8 % 12/03/2022 3:01 AM [facility] Platelet Count 445(H) 150 - 400 10? 3 /uL 12/03/2022 3:01 AM [facility] MPV 9.2(L) 9.4 - 12.9 fL 12/03/2022 3:01 AM [facility] nRBC Absolute 0.03(H) 0 10? 3 /uL 12/03/2022 3:01 AM [facility] nRBC Auto 0.1(H) 0 /100 WBC 12/03/2022 3:01 AM [facility] Blood BLOOD SPECIMEN / Unknown Venipuncture / Unknown 12/03/2022 2:42 AM ORDNANCE KEEPER 12/03/2022 2:48 AM [facility] Graeme Rodgers MD LAB - HEMATOLOGY O RDERABLES [facility] [address] [place] [phone], [facility] [phone] * TYPE + SCREEN PANEL (12/03/2022 2:42 AM [facility]) Antibody Screen NEG 3:33 AM [facility] ABO Rh A POS 12/03/2022 3:33 AM [facility] Blood Bank BLOOD SPECIMEN / Unknown Venipuncture / Unknown 12/03/2022 2:42 AM ORDNANCE KEEPER 12/03/2022 2:48 AM ORDNANCE KEEPER Himanshu Espino MD LAB - BLOOD BANK ORD ERABLES Performing Organization Address City/[facility]/ZIP Co de Phone Number [facility] [address] [place] [address], [place] [phone] * (ABNORMAL) GLUCOSE - POINT OF CARE (12/03/2022 1:07 AM ORDNANCE KEEPER) Glucose WB/POC 132(H) 70 - 115 mg/dL 12/03/2022 1:12 AM ORDNANCE KEEPER [facility] Specimen Type Cap Fingerstick 2022 1:12 AM ORDNANCE KEEPER [facility] Blood BLOOD SPECIMEN / Unknown 12/03/2022 1:07 AM ORDNANCE KEEPER 12/03/2022 1:12 AM ORDNANCE KEEPER Graeme Rodgers MD LAB - POINT OF CAR E ORDERABLES Performing Organization Address [facility]/ZIP Co de Phone Number [address] [address], [place] [phone] * (ABNORMAL) GLUCOSE - POINT OF CARE (12/03/2022 12:30 AM ORDNANCE KEEPER) Glucose WB/POC 123(H) 70 - 115 mg/dL 12/03/2022 10:47 AM ORDNANCE KEEPER [facility] Specimen Type Cap Fingerstick 2022 10:47 AM ORDNANCE KEEPER [facility] Blood BLOOD SPECIMEN / Unknown 12/03/2022 12:30 AM ORDNANCE KEEPER 12/03/2022 10:47 AM ORDNANCE KEEPER Graeme Rodgers MD LAB - POINT OF CAR E ORDERABLES Performing Organization Address City/[facility]/ZIP Co de Phone Number [address] [address], [place] [phone] * (ABNORMAL) CULTURE FLUID+GRAM STAIN (12/03/2022 12:27 AM ORDNANCE KEEPER) Culture Heavy Proteus mirabilis(AA) [facility]LES 12/06/2022 5:43 AM ORDNANCE KEEPER [facility] Culture Moderate Streptococcus agalactiae (Group B)(AA) [facility]LES 12/06/2022 5:43 AM [facility] Culture Moderate normal skin nish CHARLES 12/06/2022 5:43 AM [facility] Gram Stain Light Gram-positive bacilli(AA) 12/06/2022 5:43 AM [facility] Gram Stain Rare Gram-positive cocci(AA) 12/06/2022 5:43 AM [facility] Gram Stain Rare Red blood cells(AA) 12/06/2022 5:43 AM [facility] Gram Stain No polymorphonuclear cells(AA) 12/06/2022 5:43 AM [facility] Fluid BODY FLUID SPECIMEN / Unknown Collection / Unknown 12/03/2022 12:27 AM ORDNANCE KEEPER 12/03/2022 12:38 AM [facility] - 12/06/2022 5:43 AM ORDNANCE KEEPER Susceptibility testing of penicillin, other beta-lactam antibiotics, [...] LAB - MICROBIOLOGY ORDERABLES Performing Organization Address [facility] Co de Phone Number [employer] MICROBI[facility] [address] [place] [address], [facility] [phone] * CULTURE ANAEROBE (12/03/2022 12:27 AM ORDNANCE KEEPER) Culture No anaerobic organisms isolated CHARLES 12/08/2022 8:12 AM ORDNANCE KEEPER [facility] Fluid BODY FLUID SPECIMEN / Unknown Collection / Unknown 12/03/2022 12:27 AM ORDNANCE KEEPER 12/03/2022 12:38 AM ORDNANCE KEEPER Graeme Rodgers MD LAB - MICROBIOLOGY ORDERABLES Performing Organization Address [facility] de Phone Number [facility]CROBI[facility] [address] [place] [address], [facility] [phone] * PATHOLOGY TISSUE (12/03/2022 12:16 AM ORDNANCE KEEPER) Case Report Surgical Pathology Report ? Case: [id number] ? Authorizing Provider: ??Graeme Rodgers MD ?Collected: ? 12/03/2022 12:16 AM ? Ordering Location: ? [facility] ?Received: ?12/03/2022 07:40 AM ? Pathologist: ? Graeme Alexandre MD ? Specimen: ?Foot, Left, left foot ? 12/06/2022 12:07 PM [facility] Final Diagnosis Foot, left, disarticulation (A): - Ischemic necrosis with marked acute inflammation - Acute osteomyelitis - Surgical margins viable 12/06/2022 12:07 PM [facility] Microscopic Description and Comment Microscopic examination substantiates the final diagnosis. 12/06/2022 12:07 PM [facility] Clinical History The patient is a 32-year-old woman with poorly controlled diabetes, presented with a gangrenous necrotic left foot. Operative procedure: Left ankle disarticulation 12/06/2022 12:07 PM [facility] Gross Description The [...] soft tissue resection margin is viable grossly. Italian Tutor sections are submitted as follows: N2-U4-wpxgceum ulcer, A3-soft tissue resection margin, A4-bone under ulcer following decalcification./DS 12/06/2022 12:07 PM [facility] Disclaimer The performance characteristics of all immunohistochemical and indirect immunofluorescence stains (if any) cited in this report were determined by the Histopathology Laboratory of [facility]. Some of these tests were developed [...] the attending (teaching) pathologist. 12/06/2022 12:07 PM [facility] Embedded Images 12/06/2022 12:07 PM [facility] Biopsy, Excision (Foot, Left) 12/03/2022 12:16 AM ORDNANCE KEEPER 12/03/2022 7:40 AM ORDNANCE KEEPER Comment:Pre-op diagnosis: Gangrene (CMS/HCC) [I96] LEFT FOOT TAKEN TO [facility] Graeme Rodgers MD LAB - PATHOLOGY/CY TOLOGY ORDERABLES Performing Organization Address City/[facility]/ZIP Co de Phone Number [facility] [address] [phone] * (ABNORMAL) GLUCOSE - POINT OF CARE (12/02/2022 11:10 PM ORDNANCE KEEPER) Glucose WB/POC 126(H) 70 - 115 mg/dL 12/03/2022 10:47 AM [facility] Specimen Type Cap Fingerstick 2022 10:47 AM [facility] Blood BLOOD SPECIMEN / Unknown 12/02/2022 11:10 PM ORDNANCE KEEPER 12/03/2022 10:47 AM ORDNANCE KEEPER Himanshu Espino MD LAB - POINT OF CARE ORDERABLES [facility] [address] [place] [address], [facility] [phone] * (ABNORMAL) C-REACTIVE PROTEIN (12/02/2022 8:41 PM ORDNANCE KEEPER) C-Reactive Protein 25.2(H) <=0.5 mg/dL 12/02/2022 9:09 PM [facility] Blood BLOOD SPECIMEN / Unknown Venipuncture / Unknown 12/02/2022 8:41 PM ORDNANCE KEEPER 12/02/2022 8:44 PM ORDNANCE KEEPER Himanshu Espino MD LAB - CHEMISTRY DIVINA OLVERA Performing Organization Address [facility]/ZIP Co de Phone Number [facility] [address] [phone], [facility] [phone] * (ABNORMAL) LIPID PROFILE (12/02/2022 8:33 PM ORDNANCE KEEPER) Cholesterol Total 111 <200 mg/dL 12/02/2022 8:55 PM [facility] HDL 8(L) >40 mg/dL 12/02/2022 8:55 PM [facility] Comment: ATP III Classification of HDL Cholesterol: ? <40 mg/dL: ??Considered a major risk factor. ? >60 mg/dL: ??Considered a negative risk factor. ? LDL Calculated 74 <100 mg/dL 12/02/2022 8:55 PM [facility] Comment: ATP III Classification of LDL Cholesterol: ?<100 mg/dL: ??Optimal ? 100 - 129 mg/dL: ??Near Optimal/Above Optimal ? 130 - 159 mg/dL: ??Borderline High ? 160 - 189 mg/dL: ??High ?>190 mg/dL: ??Very High ? Triglycerides 143 <150 mg/dL 12/02/2022 8:55 PM [facility] Comment: ATP III Classification of Triglycerides: ?<150 mg/dL: ??Normal ? 150 - 199 mg/dL: ??Borderline High ? 200 - 400 mg/dL: ??High ?>500 mg/dL: ??Very High Blood BLOOD SPECIMEN / Unknown Venipuncture / Unknown 12/02/2022 8:33 PM ORDNANCE KEEPER 12/02/2022 8:42 PM ORDNANCE KEEPER Himanshu Espino MD LAB - CHEMISTRY DIVINA OLVERA [facility] [address] [place] [address], [facility] [phone] * (ABNORMAL) HEMOGLOBIN A1C (12/02/2022 8:32 PM ORDNANCE KEEPER) Hemoglobin A1c 6.7(H) <=5.6 % 12/03/2022 10:17 AM [facility] Estimated Average Glucose 146 mg/dL 12/03/2022 10:17 AM [facility] Comment: HbA1c Interpretation: Normal : < 5.7% Pre-diabetes: 5.7-6.4% Diabetes: Equal to or greater than 6.5% Test results diagnostic of diabetes should be repeated for confirmation. Treatment target values recommended by ADA and other clinical organizations should be used to evaluate metabolic control in patients. Reference: [place] [employer], Standards of Care in Diabetes -2020 In patients 70 years and older consider HbA1c target range of 7.0-7.5% (Reference: Anthony Dillard et al. JAMDA. 2012) The Sebia assay for the measurement of HbA1c is a National Glycohemoglobin Standardization Program (NGSP) certified method. Blood BLOOD SPECIMEN WITH EDTA / Unknown Venipuncture / Unknown 12/02/2022 8:32 PM ORDNANCE KEEPER 12/02/2022 8:40 PM ORDNANCE KEEPER Himanshu Espino MD LAB - CHEMISTRY [facility]MANSaint [facility] Organization Address City/State/ZIP Co de Phone Number [facility] [address] [place] [address], [facility] [phone] * (ABNORMAL) CULTURE BLOOD (12/02/2022 8:32 PM ORDNANCE KEEPER) Culture Growth of Schaalia turicensis(A A) CHARLES 12/07/2022 6:11 PM ORDNANCE KEEPER [facility] Gram Stain Gram-positiv e bacilli(AA) 12/07/2022 6:11 PM ORDNANCE KEEPER [facility] Blood PERIPHERAL BLOOD / Unknown Venipuncture / Unknown 12/02/2022 8:32 PM ORDNANCE KEEPER 12/02/2022 8:36 PM ORDNANCE KEEPER Narrative [facility] - 12/07/2022 6:11 PM ORDNANCE KEEPER Positive at 34 hrs Trisha Rodríguez PA-C LAB - MICROBIOLOGY O RDERABLES Performing Organization Address City/[facility]/ZIP Co de Phone Number [facility] [address] [place] [address], [facility] [phone] * (ABNORMAL) CULTURE BLOOD (12/02/2022 8:00 PM ORDNANCE KEEPER) Culture Growth of Schaalia turicensis(A A) CHARLES 12/09/2022 6:40 PM ORDNANCE KEEPER [facility] Gram Stain Gram-positiv e bacilli(AA) CHARLES 12/09/2022 6:40 PM ORDNANCE KEEPER [facility] Gram Stain Gram-positiv e cocci(AA) 12/09/2022 6:40 PM ORDNANCE KEEPER [facility] Blood PERIPHERAL BLOOD / Unknown Venipuncture / Unknown 12/02/2022 8:00 PM ORDNANCE KEEPER 12/02/2022 8:36 PM ORDNANCE KEEPER Narrative [facility] - 12/09/2022 6:40 PM ORDNANCE KEEPER Positive at 57 hours 33 minutes Trisha Rodríguez PA-C LAB - MICROBIOLOGY O RDERAALONZO Performing Organization Address City/[facility]/ZIP Co de Phone Number [facility] [address] [place] [address], [facility] [phone] * LACTIC ACID BLOOD REFLEX TO REPEAT (12/02/2022 8:00 PM ORDNANCE KEEPER) Lactic Acid-Stat 0.9 <=2.0 mmol/L 12/02/2022 8:59 PM ORDNANCE KEEPER [facility] Blood BLOOD SPECIMEN / Unknown Venipuncture / Unknown 12/02/2022 8:00 PM ORDNANCE KEEPER 12/02/2022 8:40 PM ORDNANCE KEEPER Trisha Rodríguez PA-C LAB - CHEMISTRY DIVINA OLVERA [address] [address], [place] [phone] * XR FOOT LEFT 3VW OR MORE (12/02/2022 7:56 PM ORDNANCE KEEPER) Anatomical Region Laterality Modality Ankle / Foot Radiographic Nissa ging 12/02/2022 7:40 PM ORDNANCE KEEPER Narrative 12/03/2022 2:25 PM ORDNANCE KEEPER PROCEDURE: ??XR FOOT LEFT 3VW OR MORE, DATE/TIME OF EXAM: ??12/02/2022 6:48 PM, LOCATION ??[facility] INDICATION: M79.89: Swelling of left foot ADDITIONAL [...] osteomyelitis. Report dictated by Dante Schultz MD (student services vice president). I, Xander De Guzman MD have personally reviewed and interpreted this examination/study. > Interpreting Provider: Xander De Guzman MD on 12/03/2022 2:25 PM Procedure Note Xander De Guzman MD - 12/03/2022 PROCEDURE: XR FOOT LEFT 3VW OR MORE, DATE/TIME OF EXAM: 12/02/2022 6:48 PM, LOCATION [facility] INDICATION: M79.89: Swelling of left foot ADDITIONAL [...] osteomyelitis. Report dictated by Dante Schultz MD (student services vice president). I, Xander De Guzman MD have personally reviewed and interpreted this examination/study. > Interpreting Provider: Xander De Guzman MD on 12/03/2022 2:25 PM Trisha Rodríguez PA-C DIAGNOSTIC IMAGING O RDERABLES * (ABNORMAL) ERYTHROCYTE SEDIMENTATION RATE (12/02/2022 7:55 PM ORDNANCE KEEPER) Erythrocyte Sedimentation Rate Westergren >130(H) 0 - 20 MM/HR 12/02/2022 10:44 PM [facility] Blood BLOOD SPECIMEN / Unknown Venipuncture / Unknown 12/02/2022 7:55 PM ORDNANCE KEEPER 12/02/2022 8:04 PM ORDNANCE KEEPER Himanshu Espino MD LAB - HEMATOLOGY ORD ERABLES [facility] [address] [place] [address], [facility] [phone] * (ABNORMAL) DIFFERENTIAL MANUAL (12/02/2022 7:55 PM ORDNANCE KEEPER) WBC (corrected for NRBC) 42.0 10? 3 /uL 12/02/2022 9:36 PM [facility] Total Cell Count 100 12/02/2022 9:36 PM [facility] Neutrophils Absolute Manual 39.06(H) 1.60 - 7.00 10? 3 /uL 12/02/2022 9:36 PM [facility] Comment:(BANDS+SEGS) x WBC = NEUT # (ANC) Lymphocyte Absolute Manual 0.84(L) 1.10 - 3.90 10? 3 /uL 12/02/2022 9:36 PM [facility] Monocytes Absolute Manual 2.10(H) 0.26 - 1.07 10? 3 /uL 12/02/2022 9:36 PM [facility] Band % Manual 3 0 - 10 % 12/02/2022 9:36 PM [facility] Neutrophil % Manual 90(H) 35 - 70 % 12/02/2022 9:36 PM [facility] Lymphocyte % Manual 2(L) 20 - 43 % 12/02/2022 9:36 PM [facility] Monocytes % Manual 5 5 - 13 % 12/02/2022 9:36 PM [facility] Platelet Estimate Increased (A) Adequate 12/02/2022 9:36 PM [facility] Microcytes Few(A) None 12/02/2022 9:36 PM [facility] Target Cells 2+(A) None 12/02/2022 9:36 PM [facility] Ovalocytes Occasiona l(A) None 12/02/2022 9:36 PM [facility] Large Platelet Count Occasiona l(A) None 12/02/2022 9:36 PM [facility] Blood BLOOD SPECIMEN / Unknown Venipuncture / Unknown 12/02/2022 7:55 PM ORDNANCE KEEPER 12/02/2022 8:04 PM ORDNANCE KEEPER Trisha Rodríguez PA-C LAB - HEMATOLOGY RAAD EASLEY Performing Organization Address [facility] Co de Phone Number [facility] [address] [place] [address], [facility] [phone] * HCG BETA BLOOD QUANTITATIVE (12/02/2022 7:55 PM ORDNANCE KEEPER) Beta-hCG Total Quantitative <3 mIU/mL 12/02/2022 8:32 PM [facility] Comment: This assay is cleared [...] Unknown Venipuncture / Unknown 12/02/2022 7:55 PM ORDNANCE KEEPER 12/02/2022 8:12 PM ORDNANCE KEEPER Trisha Rodríguez PA-C LAB - CHEMISTRY DIVINA OLVERA [facility] [address] [place] [address], [facility] [phone] * (ABNORMAL) B-TYPE NATRIURETIC PEPTIDE (12/02/2022 7:55 PM ORDNANCE KEEPER) [facility] BNP 551(H) <100 pg/mL 12/02/2022 8:24 PM ORDNANCE KEEPER [facility] Comment: A decision threshold of 100 [...] Unknown Venipuncture / Unknown 12/02/2022 7:55 PM ORDNANCE KEEPER 12/02/2022 8:07 PM ORDNANCE KEEPER Trisha Rodríguez PA-C LAB - CHEMISTRY DIVINA OLVERA Performing Organization Address [facility]/ZIP Co de Phone Number [address] [address], [facility] [phone] * TROPONIN I (12/02/2022 7:55 PM ORDNANCE KEEPER) Pathologist [facility] Troponin I 0.023 <0.032 ng/mL 12/02/2022 8:30 PM [facility] Blood BLOOD SPECIMEN / Unknown Venipuncture / Unknown 12/02/2022 7:55 PM ORDNANCE KEEPER 12/02/2022 8:12 PM ORDNANCE KEEPER Trisha Rodríguez PA-C LAB - CHEMISTRY DIVINA OLVERA Performing Organization Address [facility]/ZIP Co de Phone Number [address] [address], [facility] [phone] * (ABNORMAL) COMPREHENSIVE METABOLIC PANEL (12/02/2022 7:55 PM ORDNANCE KEEPER) Pathologist [facility] BUN 27(H) 7 - 26 mg/dL 12/02/2022 8:31 PM [facility] Creatinine 2.95(H) 0.56 - 0.96 mg/dL 12/02/2022 8:31 PM [facility] Sodium 139 136 - 145 mmol/L 12/02/2022 8:31 PM [facility] Potassium 3.9 3.5 - 4.5 mmol/L 12/02/2022 8:31 PM [facility] Chloride 106 98 - 107 mmol/L 12/02/2022 8:31 PM [facility] CO2 17(L) 22 - 29 mmol/L 12/02/2022 8:31 PM [facility] Glucose 53(LL) 70 - 115 mg/dL 12/02/2022 8:31 PM [facility] Calcium 7.6(L) 8.4 - 10.2 mg/dL 12/02/2022 8:31 PM [facility] Protein Total 6.0 6.0 - 8.3 g/dL 12/02/2022 8:31 PM [facility] Albumin 0.8(L) 3.4 - 5.0 g/dL 12/02/2022 8:31 PM [facility] Bilirubin Total 1.9(H) 0.2 - 1.2 mg/dL 12/02/2022 8:31 PM [facility] Alkaline Phosphatase 313(H) 40 - 150 U/L 12/02/2022 8:31 PM [facility] ALT 38 5 - 55 U/L 12/02/2022 8:31 PM [facility] AST 47(H) 5 - 34 U/L 12/02/2022 8:31 PM [facility] Anion Gap 20(H) 8 - 18 12/02/2022 8:31 PM [facility] BUN/Creatinine Ratio 9 7 - 23 12/02/2022 8:31 PM [facility] Osmolality Calculated 291 270 - 300 mOsm/kg 12/02/2022 8:31 PM [facility] Albumin/Globulin Ratio 0.2(L) 1.1 - 2.3 12/02/2022 8:31 PM [facility] eGFR by CKD-EPI 21(L) >=90 mL/min/1.7 3 m2 12/02/2022 8:31 PM [facility] Blood BLOOD SPECIMEN / Unknown Venipuncture / Unknown 12/02/2022 7:55 PM ORDNANCE KEEPER 12/02/2022 8:12 PM [facility] Trisha Rodríguez PA-C LAB - CHEMISTRY DIVINA OLVERA [facility] [address] [place] [address], [facility] [phone] * (ABNORMAL) CBC W AUTO DIFFERENTIAL (12/02/2022 7:55 PM ORDNANCE KEEPER) WBC 42.0(H) 3.5 - 10.5 10? 3 /uL 12/02/2022 9:33 PM [facility] RBC 3.97 3.80 - 5.20 10? 6 /uL 12/02/2022 9:33 PM [facility] Hemoglobin 8.9(L) 12.0 - 15.6 g/dL 12/02/2022 9:33 PM [facility] Hematocrit 28.3(L) 35.0 - 45.0 % 12/02/2022 9:33 PM [facility] MCV 71.3(L) 80.7 - 98.3 fL 12/02/2022 9:33 PM [facility] MCH 22.4(L) 26.7 - 34.0 pg 12/02/2022 9:33 PM [facility] MCHC 31.4 30.8 - 35.9 g/dL 12/02/2022 9:33 PM [facility] RDW-SD 49.1 36.0 - 50.0 fL 12/02/2022 9:33 PM [facility] RDW-CV 19.2(H) 11.2 - 14.8 % 12/02/2022 9:33 PM [facility] Platelet Count 556(H) 150 - 400 10? 3 /uL 12/02/2022 9:33 PM [facility] Comment: Platelet count verified by slide scan. This is an appended report. ??These results have been appended to a previously preliminary verified report. MPV 12/02/2022 9:33 PM [facility] Comment:Unable to Report Immature Platelet Fraction 12/02/2022 9:33 PM [facility] Comment:Unable to Report nRBC Absolute 0.04(H) 0 10? 3 /uL 12/02/2022 9:33 PM [facility] nRBC Auto 0.1(H) 0 /100 WBC 12/02/2022 9:33 PM [facility] Blood BLOOD SPECIMEN / Unknown Venipuncture / Unknown 12/02/2022 7:55 PM ORDNANCE KEEPER 12/02/2022 8:04 PM ORDNANCE KEEPER Trisha Rodríguez PA-C LAB - HEMATOLOGY ORD ERABLES [address] [address], [facility] [phone] * XR CHEST 2VW (12/02/2022 7:31 PM ORDNANCE KEEPER) Anatomical Region Laterality Modality Chest Radiographic Nissa ging 12/02/2022 8:42 PM ORDNANCE KEEPER Impressions 12/03/2022 2:50 AM ORDNANCE KEEPER IMPRESSION: 1.Cardiomegaly with suggestion of mild pulmonary edema. 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 The report was drafted by Dante Schultz MD (supervisor residential) I, Peter Donnelly MD, PhD have personally reviewed and interpreted this examination/study. > Interpreting Provider: Peter Donnelly MD, PhD on 12/03/2022 2:50 AM Narrative 12/03/2022 2:50 AM ORDNANCE KEEPER EXAM: XR CHEST 2VW DATE/TIME: 12/02/2022 7:31 PM LOCATION: ??[facility] HISTORY: R09.02: Hypoxia COMPARISON: None. FINDINGS: Lines/Tubes: [...] CHEST 2VW DATE/TIME: 12/02/2022 7:31 PM LOCATION: [facility] HISTORY: R09.02: Hypoxia COMPARISON: None. FINDINGS: Lines/Tubes: [...] report was drafted by Dante Schultz MD (supervisor residential) I, Peter Donnelly MD, PhD have personally [...] foot Bacteremia due to Gram-positive bacteria Bacteremia Gangrene (HCC) Gangrene documented in this encounter [...] 8 hours. $ Given 12/12/2022 6:56 AM ORDNANCE KEEPER 3 mL $ Given 12/11/2022 9:27 PM ORDNANCE KEEPER 3 mL $ Given 12/11/2022 2:35 PM ORDNANCE KEEPER 3 mL acetaminophen (Tylenol) tablet 500 mg [...] the MAR. $ Given 12/12/2022 6:55 AM ORDNANCE KEEPER 500 m g $ Given 12/11/2022 6:24 PM ORDNANCE KEEPER 500 mg $ Given 12/11/2022 2:35 PM ORDNANCE KEEPER 500 mg amLODIPine (Norvasc) tablet 10 mg 10 mg, Oral, DAILY, First dose on Fri12/04/22 at 0930, Until Discontinued $ Given 12/12/2022 9:50 AM ORDNANCE KEEPER 10 mg $ Given 12/11/2022 8:29 AM ORDNANCE KEEPER 10 mg $ Given 12/10/2022 9:59 AM ORDNANCE KEEPER 10 mg amoxicillin-clavulanate (Augmentin) tablet 875 mg 875 mg, Oral, 2 TIMES DAILY, 14 doses, First dose on 12/08/22 at 1415, Last dose on 12/14/22 at 2100, Administer with food to decrease GI side effects., Indication for anti-infective therapy: Suspected infection, Site of anti-infective therapy: Skin/soft tissue $ Given 12/12/2022 10:20 AM ORDNANCE KEEPER 875 mg $ Given 12/11/2022 9:27 PM ORDNANCE KEEPER 875 mg $ Given 12/11/2022 8:29 AM ORDNANCE KEEPER 875 mg carvedilol (Coreg) tablet 12.5 mg 12.5 mg, Oral, 2 TIMES DAILY WITH MEALS, First dose on Fri12/11/22 at 0800, Until Discontinued, Take with food $ Given 12/12/2022 9:50 AM ORDNANCE KEEPER 12.5 mg $ Given 12/11/2022 6:24 PM ORDNANCE KEEPER 12.5 mg $ Given 12/11/2022 8:29 AM ORDNANCE KEEPER 12.5 mg FLUoxetine (PROzac) capsule 20 mg 20 mg, Oral, DAILY, First dose on Fri12/03/22 at 0900, Until Discontinued $ Given 12/09/2022 9:03 AM ORDNANCE KEEPER 20 mg $ Given 12/08/2022 9:29 AM ORDNANCE KEEPER 20 mg $ Given 12/07/2022 8:07 AM ORDNANCE KEEPER 20 mg furosemide (Lasix) tablet 40 mg 40 mg, Oral, 2 TIMES DAILY, First dose on Fri12/06/22 at 1145, Until Discontinued $ Given 12/12/2022 10:20 AM ORDNANCE KEEPER 40 m g $ Given 12/11/2022 6:24 PM ORDNANCE KEEPER 40 mg $ Given 12/11/2022 8:29 AM ORDNANCE KEEPER 40 mg heparin injection 7,500 Units 7,500 Units, Subcutaneous, 3 TIMES DAILY, First dose on Fri12/03/22 at 0800, Until Discontinued $ Given 12/12/2022 6:55 AM ORDNANCE KEEPER 7,500 Units Abdominal Tissue $ Given 12/11/2022 9:27 PM ORDNANCE KEEPER 7,500 Units A bdominal Tissue $ Given 12/11/2022 2:35 PM ORDNANCE KEEPER 7,500 Units A bdominal Tissue insulin glargine (Lantus) pen 10 Units 10 Units, Subcutaneous, AT BEDTIME, First dose (after last modification) on Fri12/05/22 at 2100, Until Discontinued, Obtain current Blood Glucose if necessary . WASTE DISPOSAL INSTRUCTIONS: Black Bin Disposal required. $ Given 12/11/2022 9:33 PM ORDNANCE KEEPER 10 Units Abdominal Tissue $ Given 12/10/2022 9:19 PM ORDNANCE KEEPER 10 Units A bd Right Lower Quadrant $ Given 12/09/2022 10:19 PM ORDNANCE KEEPER 10 Units A bd Left Lower Quadrant [...] notify physician $ Given 12/09/2022 1:06 PM ORDNANCE KEEPER 4 Units Right Arm $ Given 12/09/2022 12:58 AM ORDNANCE KEEPER 2 Units A bd Left Lower Quadrant $ Given 12/08/2022 9:41 PM ORDNANCE KEEPER 2 Units Le ft Arm insulin lispro (HumaLOG;ADMelog) 100 UNIT/ML pen 5 Units 5 Units, Subcutaneous, 3 TIMES DAILY WITH MEALS, First dose on Fri12/05/22 at 0815, Until Discontinued, Obtain current Blood Glucose if necessary. May be given immediately before meal, during meal, or immediately after meal is eaten. Meal must be present before administration. $ Given 12/11/2022 2:39 PM ORDNANCE KEEPER 5 Units Abdominal Tissue $ Given 12/11/2022 9:18 AM ORDNANCE KEEPER 5 Units Ri ght Arm $ Given 12/10/2022 6:05 PM ORDNANCE KEEPER 5 Units Ab dominal Tissue nystatin (Mycostatin) powder Topical, 3 TIMES DAILY, First dose on Fri12/05/22 at 1515, Until Discontinued, Apply to intertriginous areas $ Given 12/12/2022 10:20 AM ORDNANCE KEEPER $ Given 12/11/2022 9:35 PM ORDNANCE KEEPER $ Given 12/11/2022 2:35 PM ORDNANCE KEEPER oxyCODONE (immediate release) (Roxicodone) tablet 10 mg [...] the MAR. $ Given 12/11/2022 12:03 AM ORDNANCE KEEPER 10 m g $ Given 12/10/2022 1:13 PM ORDNANCE KEEPER 10 mg $ Given 12/09/2022 1:08 PM ORDNANCE KEEPER 10 mg oxyCODONE (immediate release) (Roxicodone) tablet [...] or chew. $ Given 12/12/2022 10:20 AM ORDNANCE KEEPER 20 mEq $ Given 12/11/2022 8:30 AM ORDNANCE KEEPER 20 mEq $ Given 12/10/2022 1:12 PM ORDNANCE KEEPER 20 mEq documented in this encounter Active and Recently Administered Medications Times are shown in ORDNANCE KEEPER. Scheduled Medication Order 12/10/2022 12/11/2022 12/12/2022 0.9% NaCl injection 3 mL(Linked Group 1) 3 mL, Intracatheter, EVERY 8 HOURS, First dose on Fri12/03/22 at 0045, Until Discontinued, Flush peripheral IV catheter with 3 mL of normal saline every 8 hours. 0604 ($ Given - Provider: Jordan Bose RN)1315 ($ Given - Provider: Román Burger RN)2120 ($ Given - Provider: Althea Slater [...] Discontinued 1000 (Not Administered - Provider: Román uBrger RN - Reason: Refused-Patient) 0829 (Not Administered [...] ($ Given - Provider: Julita Long RN) 0655 ($ Given - Provider: Julita Long [...] JAN. 131 ($ Given - Provider: Román Burger RN) [...]
--- OUTSIDE RECORDS SUMMARY | 2024-11-17 03:05 | XMS_ITS | Clinical Summary ---
Author Organization [facility] Address [facility] [place] [address] [place] [address] Care Team Providers Care Battery Container Finishing Hand Name Role Phone None, Provider MD Primary Care Provider Unavaila ble Allergies No known active allergies Medications gentamicin (GARAMYCIN) 0.1 % cream Apply to right leg wounds only daily and PRN 30 g 2 3 Active ketoconazole (NIZORAL) 2 % cream Apply topically daily. 30 g 2 3 Active mupirocin (BACTROBAN) 2 % ointment Apply topically daily. 30 g 2 3 Active Active Problems Problem Noted Date Diagnosed Date Pulmonary infiltrate 07/31/2022 Morbid obesity ([facility]) 07/31/2022 Acute hypoxemic respiratory failure ([facility]) 07/29/2022 Social History Tobacco Use Types Packs/Day Years Used Date Smoking Tobacco: Never Smokeless Tobacco: Never Alcohol Use Standard Drinks/Week Comments Not Currently 0 (1 standard drink = 0.6 oz pur e alcohol) Comments No Sex and Gender Information Value Date Recorded Sex Assigned at Not on file Legal Sex Female 12:48 PM CDT Gender Identity Not on file Sexual Orientation Not on file Last Filed Vital Signs Vital Sign Reading Time Taken Comments Blood Pressure 122/80 08/21/2022 6:00 AM CDT Pulse 96 08/21/2022 6:00 AM CDT Temperature 36.6 ??C (97.9 ??F) 08/21/2022 6:00 AM CD T Respiratory Rate 20 08/21/2022 6:00 AM CDT Oxygen Saturation 98% 08/21/2022 6:00 AM CDT Inhaled Oxygen Concentration - - Weight 129.3 kg (285 lb) 08/20/2022 11:07 PM CDT Height 172.7 cm (5' 8 ) 08/20/2022 11:07 PM CDT Body Mass Index 43.33 08/20/2022 11:07 PM CDT Plan of Treatment Health Maintenance Due Date Last Done Comments Annual Physical 1995 HPV Vaccines (3 - 3-dose series) 10/25/2008 06/24/2008, 04/25/2008 Hepatitis C 2010 COVID-19 Vaccine ( season) 2024 Influenza Adult (#1) 2024 Cervical Cancer Screening Pap Smear (Age 30 to 64) Every 3 Years 12/05/2025 12/05/2022 Cervical Cancer Screening Pap with HPV Testing (Age 30 to 64) Every 5 Years 12/05/2027 12/05/2022 Cervical Cancer Screening with HPV 12/05/2027 DTaP, Tdap and Td Vaccines (7 - Td or Tdap) 12/02/2032 12/02/2022, 08/14/2006, 05/08/1994, Additional history exists Hepatitis B Vaccines Completed 03/06/1994, 07/27/1993, 06/01/1993 Meningococcal Vaccine Aged Out 04/25/2008 No marnie shavon eligible based on patient's age to complete this topic Pneumococcal Vaccine: Pediatrics (0 to 5 Years) and At-Risk Patients (6 to 64 Years) Aged Out No longer eligible based on patient's age to complete this topic RSV Immunizations Under 20 Months Aged Out No longer eligible based on patient's age to complete this topic Goals Goal Patient Goal Type Associated Problems Recent Progress Patient-Stated? Author Safety ? 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
--- OUTSIDE RECORDS SUMMARY | 2024-11-17 03:05 | XMS_ITS | Encounter Summary ---
Author Organization [facility] Address [facility] [place] [address] [place] [address] Care Team Providers Care Embalmer/Funeral Director Name Role Phone None, Provider Primary Care Provider Unavaila ble Reason for Visit * Reason Onset Date Comments No Show 02/05/2023 Encounter Details Date Type Department Care Team (Late st Contact Info) Description 02/05/2023 Telephone [facility] Physical Therapy [address] [place] [address] Penny Gould, PT 1 [place], [place] [phone] No Show Social History Tobacco Use Types Packs/Day Years [...] suspected to have Coronavirus/COVID-19? No / Unsure 02/03/2023 12:26 PM CDT documented as of this encounter Functional Status * RETIRED Are you deaf or do you have serious difficulty hearing Answer Date of Assessment Author Status Yes 07/30/2022 12:00 AM CDT Acti ve * RETIRED Are you blind or do you have serious difficulty seeing, even when wearing glasses? Answer Date of Assessment Author Status No 07/30/2022 12:00 AM CDT Acti ve * Do you have serious difficulty walking or climbing stairs? Answer Date of Assessment Author Status No 07/30/2022 12:00 AM BRODERICKT Brandin Krishnamurthy RN Active * Do you have difficulty dressing or bathing? Answer Date of Assessment Author Status No 07/30/2022 12:00 AM CDT Brandin Krishnamurthy RN Active * Because of a physical, mental, or emotional condition, do you have difficulty doing errands alone such as visiting a doctor's office or shopping? Answer Date of Assessment Author Status No 07/30/2022 12:00 AM CDT Brandin Krishnamurthy RN Active documented as of this encounter Mental Status * Because of a physical, mental, or emotional condition, do you have serious difficulty concentrating, remembering, or making decisions? Answer Entry Date Author Status No 07/30/2022 12:00 AM CDT Brandin Krishnamurthy RN Active documented in this encounter Progress Notes * Penny Gould, PT - 02/05/2023 1:27 PM CDT Called regarding no show for today's PT appointment. Because the patient has had multiple no shows,per no-show policy, future scheduled appointments have been canceled and the patient will need to call day of for appointments if she would like to continue with physical therapy. documented in this encounter Plan of Treatment Not on file documented as of this encounter Goals Goal Patient Goal Type Associated Problems Recent Progress Patient-Stated? Author Safety ? Patient/family will have appropriate support at home upon discharge Lifestyle No Ashlee Hein RN documented as of this encounter Visit Diagnoses Not on filedocumented in this encounter Additional Health Concerns Infection Onset Date Last Indicated Resolved Time MRSA Comment:07/29/22 Nares (RG) 07/30/22 +MRSA Right leg 03/03/23 +MRSA Right leg 07/30/2022 03/03/2023 documented as of this encounter Care Teams Embalmer/Funeral Director Relationship Specialty Start Date End Date None, Provider, PCP - General 07/29/22 documented as of this encounter
--- OUTSIDE RECORDS SUMMARY | 2024-11-17 03:05 | XMS_ITS | Encounter Summary ---
Author Organization [facility] Address [address] [place] [address] Care Team Providers Care Clinical Trial Associate Name Role Phone Clinic, [facility] Primary Care Provider [phone] Reason for Visit * Reason Onset Date Comments MEDICATION REFILL 04/27/2010 Encounter Details Date Type Department Care Team (Late st Contact Info) Description 04/27/2010 Refill [facility] - Diabetes Mgmt [address] 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 Social History Tobacco Use Types Packs/Day Years Used Date Smoking Tobacco: Never Assessed Sex and Gender Information Value Date Recorded Sex Assigned at Not on file Gender Identity Not on file Sexual Orientation Not on file documented as of this encounter Plan of Treatment Upcoming Encounters Date Type Department Care Team (Late st Contact Info) Description 11/22/2024 1:30 PM DIESEL DINKEY ENGINEER Office Visit [facility] - Infectious Disease [address] [place] [id number] Kash Ha MD [address] [place] [address] documented as of this encounter Visit Diagnoses Not on filedocumented in this encounter Care Teams Clinical Trial Associate Relationship Specialty Start Date End Date Clinic, [facility] [address] [place] [address] PCP - General 04/24/10 11/08/14 documented as of this encounter
--- OUTSIDE RECORDS SUMMARY | 2024-11-17 03:05 | XMS_ITS | Encounter Summary ---
Author Organization [facility] Address [address] [place] [address]. [place] [address] [place] [address] Care Team Providers Care Order Takers Supervisor Name Role Phone None, Provider Primary Care Provider Unavaila ble Encounter Details Date Type Department Care Team (Late st Contact Info) Description 03/03/2023 2:00 PM CDT - 03/03/2023 11:59 PM CDT Hospital Encounter [facility] [address] [place], [place] [phone] Nora Garsia NP 1 [place], [place] [phone] Discharge Disposition: Home or Self Care (Routine Discharge) Social History Tobacco Use Types Packs/Day Years [...] suspected to have Coronavirus/COVID-19? No / Unsure 03/03/2023 2:05 PM CDT documented as of this encounter [...] AM BRODERICKT Brandin Krishnamurthy RN Active * Because of a physical, mental, or emotional condition, do you have difficulty doing errands alone such as visiting a doctor's office or shopping? Answer Date of Assessment Author Status No 07/30/2022 12:00 AM BRODERICKT Brandin Krishnamurthy RN Active documented as of this encounter Mental Status * Because of a physical, mental, or emotional condition, do you have serious difficulty concentrating, remembering, or making decisions? Answer Entry Date Author Status No 07/30/2022 12:00 AM Brandin Gandhi RN Active documented in this encounter Medications at Time of Discharge gentamicin (GARAMYCIN) 0.1 % cream Apply to right leg wounds only daily and PRN 30 g 2 03/06/2023 ketoconazole (NIZORAL) 2 % cream Apply topically daily. 30 g 2 03/06/2023 gentamicin (GARAMYCIN) 0.1 % cream Apply to right leg wounds only daily and PRN 30 g 2 03/03/2023 3 ketoconazole (NIZORAL) 2 % cream Apply topically daily. 30 g 2 03/03/2023 3 documented as of this encounter Plan of Treatment Not on file documented as of this encounter Goals Goal Patient Goal Type Associated Problems Recent Progress Patient-Stated? Author Safety ? Patient/family will have appropriate support at home upon discharge Lifestyle No Ashlee Hein RN documented as of this encounter Results * (ABNORMAL) CULTURE, WOUND, W/GRAM STAIN (03/03/2023 4:02 PM CDT) SPEC DESCRIPTION LEG,RIGHT 03/05/2023 6:23 PM CDT [facility] SPECIAL REQUESTS NO SPECIAL REQUEST 03/05/2023 6:23 PM CDT [facility] GRAM STAIN RESULT NO WHITE BLOOD CELLS SEEN 03/06/2023 1:25 PM CDT [facility] GRAM STAIN RESULT FEW GRAM POSITIVE COCCI 03/06/2023 1:25 PM CDT [facility] CULTURE RESULT HEAVY GROWTH OF STREPTOCOCCI, BETA HEMOLYTIC GROUP B SUSCEPTIBILTY NOT ROUTINELY PERFORMED. SAVING ISOLATE FOR 5 DAYS. CONTACT MICROBIOLOGY DEPARTMENT IF FURTHER WORKUP IS INDICATED. (A) 03/08/2023 9:21 AM CDT [facility] CULTURE RESULT HEAVY GROWTH OF METHICILLIN RESISTANT STAPHYLOCOCCUS AUREUS FOLLOW ISOLATION PROTOCOL. (AA) 03/08/2023 9:21 AM CDT [facility] CULTURE RESULT NOTE: WOUND AND TISSUE CULTURES ARE ROUTINELY SCREENED FOR AEROBIC ORGANISMS ONLY. 03/08/2023 9:21 AM CDT [facility] STRUCTURE OF RIGHT LOWER LIMB / Unknown 03/03/2023 4:02 PM CDT 03/05/2023 6:24 PM CDT Narrative Organism Antibiotic Method Susceptibility Methicillin resistant staphylococcus aureus CLINDAMYCIN CHARLES (VITEK) <=0.25: Sensitive Methicillin resistant staphylococcus aureus ERYTHROMYCIN CHARLES (VITEK) <=0.25: Sensitive Methicillin resistant staphylococcus aureus OXACILLIN CHARLES (VITEK) 0.5: Resistant Methicillin resistant staphylococcus aureus TRIMETH-SULFAMETH. CHARLES (VITEK) <=10: Sensitive Methicillin resistant staphylococcus aureus TETRACYCLINE CHARLES (VITEK) <=1: Sensitive Methicillin resistant staphylococcus aureus VANCOMYCIN CHARLES (VITEK) <=0.5: Sensitive us Nora Garsia NP MICROBIOLOGY - GENERAL OR DERABLES Final Result [facility] [address] [place], [place] [address] [phone] documented in this encounter Visit Diagnoses Diagnosis Non-pressure chronic ulcer of right calf with fat layer exposed ([facility])- Primary Ulcer of calf Peripheral vascular disease ([facility]) Peripheral vascular disease, unspecified Localized edema Edema Other acute osteomyelitis of right foot ([facility]) documented in this encounter Additional Health Concerns Infection Onset Date Last Indicated Resolved Time MRSA Comment:07/29/22 Nares (RG) 07/30/22 +MRSA Right leg 03/03/23 +MRSA Right leg 07/30/2022 03/03/2023 documented as of this encounter Care Teams Order Takers Supervisor Relationship Specialty Start Date End Date None, Provider, PCP - General 07/29/22 documented as of this encounter
--- OUTSIDE RECORDS SUMMARY | 2024-11-17 03:05 | XMS_ITS | Encounter Summary ---
Author Organization [facility] Address [facility] [address] [place] [address] Care Team Providers Care Nutrition Services Assistant Name Role Phone None, Provider Primary Care Provider Unavaila ble Encounter Details Date Type Department Care Team (Latest Contact Info) Description 03/03/2023 Travel Social History Tobacco Use Types Packs/Day [...] AM CDT Brandin Krishnamurthy RN Active * Do you have difficulty dressing or bathing? Answer Date of Assessment Author Status No 07/30/2022 12:00 AM Brandin Gandhi RN Active * Because of a physical, mental, or emotional condition, do you have difficulty doing errands alone such as visiting a doctor's office or shopping? Answer Date of Assessment Author Status No 07/30/2022 12:00 AM Brandin Gandhi RN Active documented as of this encounter Mental Status * Because of a physical, mental, or emotional condition, do you have serious difficulty concentrating, remembering, or making decisions? Answer Entry Date Author Status No 07/30/2022 12:00 AM Brandin Gandhi RN Active documented in this encounter Plan of Treatment [...] documented as of this encounter Care Teams Nutrition Services Assistant Relationship Specialty Start Date End Date None, Provider, PCP - General 07/29/22 documented as of this encounter
--- OUTSIDE RECORDS SUMMARY | 2024-11-17 03:05 | XMS_ITS | Encounter Summary ---
Author Organization [facility] Address [facility] [place] [address] [place] [address] Care Team Providers Care Transportation Maintenance Operator Name Role Phone None, Provider Primary Care Provider Unavaila ble Encounter Details Date Type Department Care Team (Latest Contact Info) Description 08/20/2022 Travel Social History Tobacco Use Types Packs/Day [...] suspected to have Coronavirus/COVID-19? No / Unsure 08/20/2022 10:59 PM CDT documented as of this encounter [...] documented as of this encounter Care Teams Transportation Maintenance Operator Relationship Specialty Start Date End Date None, Provider, PCP - General 07/29/22 documented as of this encounter
--- OUTSIDE RECORDS SUMMARY | 2024-11-17 03:05 | XMS_ITS | Encounter Summary ---
Author Organization [facility] Address [facility] [place] [address] [place] [address] Care Team Providers Care Gearcase Assembler Name Role Phone None, Provider Primary Care Provider Unavaila ble Reason for Visit * Reason Onset Date Comments No Show 01/22/2023 Encounter Details Date Type Department Care Team (Late st Contact Info) Description 01/22/2023 Telephone [facility] Physical Therapy [address] [place] [address] Penny Gould, PT 1 [place], [place] [phone] No Show Social History Tobacco Use Types [...] suspected to have Coronavirus/COVID-19? No / Unsure 01/20/2023 1:02 PM CDT documented as of this encounter [...] Progress Notes * Penny Gould, PT - 01/22/2023 11:36 AM CDT Called the patient regarding no show for today's appointment. The patient was unable to make it dueto the patient's ride getting called in to work. The patient next appointment is scheduled for Friday01/27/23 at 11am. documented in this encounter Plan of Treatment [...] documented as of this encounter Care Teams Gearcase Assembler Relationship Specialty Start Date End Date None, Provider, PCP - General 07/29/22 documented as of this encounter
--- OUTSIDE RECORDS SUMMARY | 2024-11-17 03:05 | XMS_ITS | Encounter Summary ---
Author Organization [facility] Address Critical access hospital6 [facility] [address] [place] [address] Care Team Providers Care Tile Layer Supervisor Name Role Phone None, Provider MD Primary Care Provider Unavaila ble Reason for Visit * Reason Onset Date Comments Called To Cancel Office Appt. 01/10/2023 Encounter Details Date Type Department Care Team (Late st Contact Info) Description 01/10/2023 Telephone [facility] Physical Therapy [address] [place] [phone] Penny Gould, PT 1 [place], [place] [phone] Called To Cancel Office Appt. Social History Tobacco Use Types Packs/Day Years [...] suspected to have Coronavirus/COVID-19? No / Unsure 01/08/2023 1:31 PM BONE GRINDER documented as of this encounter Functional Status [...] Gandhi RN Active documented in this encounter Progress Notes * Penny Gould, PT - 01/10/2023 7:41 AM CST The patient called and canceled today's appointment due to not having a ride. GRINDER documented in this encounter Plan of Treatment [...] documented as of this encounter Care Teams Tile Layer Supervisor Relationship Specialty Start Date End Date None, Provider, PCP - General 07/29/22 documented as of this encounter
--- OUTSIDE RECORDS SUMMARY | 2024-11-17 03:05 | XMS_ITS | Encounter Summary ---
Author Organization [facility] Address [address] [place] [address]. [place] [address] [place] [address] Care Team Providers Care Plumber Pipe Fitting Name Role Phone None, Provider Primary Care Provider Unavaila ble Encounter Details Date Type Department Care Team (Late st Contact Info) Description 01/06/2023 Orders Only [facility] [address] [place], [place] [phone] Nora Garsia NP 1 [place] [address] Social History Tobacco Use Types Packs/Day Years [...] suspected to have Coronavirus/COVID-19? No / Unsure 01/02/2023 12:43 PM TITLE I TEACHER documented as of this encounter Functional Status [...] 12:00 AM Brandin Gandhi RN Active * Do you have difficulty [...] as of this encounter Care Teams Plumber Pipe Fitting Relationship Specialty Start Date End Date None, Provider, PCP - General 07/29/22 documented as of this encounter
--- OUTSIDE RECORDS SUMMARY | 2024-11-17 03:05 | XMS_ITS | Encounter Summary ---
Author Organization [facility] Address [facility] [place] [address] [place] [address] Care Team Providers Care Psychiatric Mental Health Nurse Name Role Phone None, Provider Primary Care Provider Unavaila ble Encounter Details Date Type Department Care Team (Late st Contact Info) Description 01/22/2023 Telephone [facility] Physical Therapy [address] [place] [address] Penny Gould, PT 1 [place], [place] [address] Social History Tobacco Use Types Packs/Day Years [...] documented as of this encounter Care Teams Psychiatric Mental Health Nurse Relationship Specialty Start Date End Date None, Provider, PCP - General 07/29/22 documented as of this encounter
--- OUTSIDE RECORDS SUMMARY | 2024-11-17 03:05 | XMS_ITS | Encounter Summary ---
Author Organization [facility] Address [facility] [place] [place] [address] [place] [address] Care Team Providers Care Shank Cutter Name Role Phone None, Provider Primary Care Provider Unavaila ble Encounter Details Date Type Department Care Team (Latest Contact Info) Description 01/06/2023 Travel Social History Tobacco Use Types Packs/Day [...] suspected to have Coronavirus/COVID-19? No / Unsure 01/06/2023 6:14 PM HANDLE MAKER documented as of this encounter Functional Status [...] documented as of this encounter Care Teams Shank Cutter Relationship Specialty Start Date End Date None, Provider, PCP - General 07/29/22 documented as of this encounter
--- OUTSIDE RECORDS SUMMARY | 2024-11-17 03:05 | XMS_ITS | Encounter Summary ---
Author Organization [facility] Address Critical access hospital[address] [facility] [place] [address] [place] [address] Care Team Providers Care Dedicated Owner Operator Name Role Phone None, Provider MD Primary Care Provider Unavaila ble Reason for Visit * Reason Onset Date Comments Called To Cancel Office Appt. 01/29/2023 Encounter Details Date Type Department Care Team (Late st Contact Info) Description 01/29/2023 Telephone [facility] Physical Therapy [address] [place] [phone] Penny Gould, PT 1 [place], [place] [phone] Called To Cancel Office Appt. Social History [...] suspected to have Coronavirus/COVID-19? No / Unsure 01/27/2023 11:07 AM CDT documented as of this encounter [...] in this encounter Progress Notes * Penny Gould PT - 01/29/2023 12:00 PM CDT The patient called and canceled today's PT appointment due to not having transportation. documented in this encounter Plan of Treatment [...] documented as of this encounter Care Teams Dedicated Owner Operator Relationship Specialty Start Date End Date None, Provider, PCP - General 07/29/22 documented as of this encounter
--- OUTSIDE RECORDS SUMMARY | 2024-11-17 03:05 | XMS_ITS | Encounter Summary ---
Author Organization [facility] Address [address] [place] [address] Care Team Providers Care Clamper Name Role Phone Clinic, [facility] Primary Care Provider [phone] Encounter Details Date Type Department Care Team (Late Contact Info) Description 04/23/2010 Orders Only [facility] Pediatrics - Endocrinology [address] [place] [address] Kim Ponce MD DM w/o Complication Type II (HCC) Social History Tobacco Use Types Packs/Day Years Used Date Smoking Tobacco: Never Assessed Sex and Gender Information Value Date Recorded Sex Assigned at Not on file Gender Identity Not on file Sexual Orientation Not on file documented as of this encounter Plan of Treatment Upcoming Encounters Date Type Department Care Team (Late Contact Info) Description 11/22/2024 1:30 PM EXTRACORPOREAL TECHNICIAN Office Visit [facility] - Infectious Disease [facility] [facility] [place] [id number] Kash Ha MD [address] [place] [address] documented as of this encounter Results * (ABNORMAL) LIPID PROFILE (04/24/2010 9:40 AM CDT) [facility] Cholesterol 150 < 200 mg/dl mg/dl [facility] Triglycerides 83 < 150 mg/dl mg/dl [facility] HDL Cholesterol 33(L) > 40 mg/dl mg/dl [facility] LDL Calculated 100(H) < 100 mg/dl mg/dl [facility] Chol HDL Ratio 4.5 [facility] Comment Lipid Reference Ranges provided by [employer]. [facility] BLOOD SPECIMEN / Unknown 04/24/2010 9:40 AM CDT 04/24/2010 9:55 AM CDT Beatriz Bear APRN-RETAIL PLANNING MANAGER LAB - CHEMISTRY ORDERABLES Performing Organization Address City/[facility]/ZIP Co de Phone Number [facility] * (ABNORMAL) CREATININE BLOOD (04/24/2010 9:40 AM CDT) Creatinine 1.15(H) 0.50 - 1.06 mg/dl [facility] BLOOD SPECIMEN / Unknown 04/24/2010 9:40 AM CDT 04/24/2010 9:54 AM CDT Beatriz Bear APRN-[facility] LAB - CHEMISTRY ORDERABLES Performing Organization Address City/[facility] [place]/ZIP Co de Phone Number [facility] documented in this encounter Visit Diagnoses Diagnosis Type II or unspecified type diabetes mellitus without mention of complication, not stated as uncontrolled (HCC)- Primary Type II or unspecified type diabetes mellitus without mention of complication, not stated as uncontrolled documented in this encounter Care Teams Clamper Relationship Specialty Start Date End Date [facility], [facility] [address] [place] [address] PCP - General 04/24/10 11/08/14 documented as of this encounter
--- OUTSIDE RECORDS SUMMARY | 2024-11-17 03:05 | XMS_ITS | Encounter Summary ---
Author Organization [facility] Address [facility] [facility] [place] [address] [place] [address] Care Team Providers Care [employer] Operator Name Role Phone None, Provider MD Primary Care Provider Unavaila ble Reason for Visit * Reason Comments Above Knee Amputation * Physical Therapy (Routine) - Closed Specialty Diagnoses / Procedures Referred By Jany martinez Referred To Contact [facility] Physical Therapy Diagnoses Acquired absence of left leg above knee ([facility]/HCC HHS/HCC) Encounter for orthopedic aftercare following surgical amputation Other abnormalities of gait and mobility Phantom limb syndrome with pain (CMS/HCC HHS/HCC) Unspecified diastolic (congestive) heart failure (CMS/HCC HHS/HCC) Hypertensive heart disease with heart failure (CMS/HCC HHS/HCC) Pressure ulcer of right heel, unstageable (CMS/HCC HHS/HCC) Pressure ulcer of left buttock, stage 3 (CMS/HCC HHS/HCC) Thor Win, DO [address] [place] [address] Phone: tel: fax: [facility] [address] [place] [address] Phone: tel: fax: Referral ID Status Reason Start Date Expiration Date V isits Requested Visits Authorized [id number] Closed Physical Therapy 01/06/2023 03/07/2023 12 12 Encounter Details Date Type Department Care Team (Late st Contact Info) Description 01/27/2023 11:00 AM CDT Office Visit [facility] [address] [place] [address] Penny Gould, PT [address] [place] [address] Thor Win, DO [address] [id number] Above Knee Amputation Social History Tobacco Use Types Packs/Day Years [...] in this encounter Progress Notes * Penny Perez Luis Fernando, PT - 01/27/2023 11:00 AM CDT Physical Therapy Visit Note: Patient Name: Gay Canales Diagnosis: Hx of aka (above knee amputation), left (cms/hcc) (primary encounter diagnosis) Weakness Personal Protective Equipment PPE Used During Visit: Therapist wore medical grade mask throughout session, Caregiver wore mask throughout session SUBJECTIVE Therapy Visit Treatment Day: 3 Total Approved Visits: 12 Authorization Expiration Date: 03/07/2023 Therapy Plan of Care: RLE endurance and stability, L hip strengthening Diagnosis: L aka Referring Provider: Audelia Ingram MD Visit: Nothing scheduled as of 01/20/23 Subjective Note: The patient reports has been doing exercises at home except for the stretch one due to difficulty. The patinet reports the eye continues to be irritated. Compliance to Home Program: yes Reported Falls since last visit: none Medications changes since last visit : none Pain Current Location of Pain: No Pain Current Pain Level: 0/10 OBJECTIVE Treatment provided today: Therapeutic Exercise - 72721 Number of Minutes - 52801: 15 Exercise: Supine SLR 2 x 10 Reps Bilat Exercise: SL Hip Abd with patient in Right SL x 10 reps, SL L hip ext x 10 reps Exercise: L hip flexor stretch in R sidelying 2 x 60 seconds Exercise: supine bride thighs on bolster 2 x 10 Therapeutic Activities - 99232 Number of Minutes - 83429: 38 Intervention : Static Standing inside the // bars x 6 Min Intervention : Gait Training - Patient ambulated 6' x 4 Reps with Bilat UE and hop technique withclose standard chair follow inside the // bars. Intervention : W/C<->Mat with stand pivot transfer and min assist of one x 2 Reps Intervention : Sit<->stand from W/C with min assist of one inside the // bars x 5 Reps Intervention : standing in // bars with L hip abd 2 x5 and extension 2x 5 for standing endurance (attempted UE task with cones but the patient had difficulty due to eye issue) Other (Comments): The above activities were done to improve tolerance to functional activites and ADL's, rest breaks between each rep Education Was Education Provided: Yes Topic: progress, importance of regular PT attendence ASSESSMENT Assessment Note: The patient was able to progress to 4-5 hops at a time each rep of ambulation in // bars and increase overall time spent in standing compared to the first session. Attempted a cone stacking activity with unilateral suppor tbut the patient was unable to perform due to current eye issues so switched to L hip motions. Response to Treatment : Good - Fatigued at end of treatment. PLAN Plan Next Visit Plan: Progress standing tolerance and gait. Total Time Total Time in Minutes: 53 Timed Code Treatment Minutes : 53 documented in this encounter Plan of Treatment Not on file documented as of this encounter Goals Goal Patient Goal Type Associated Problems Recent Progress Patient-Stated? Author Safety ? Patient/family will have appropriate support at home upon discharge Lifestyle No Ashlee Hein RN documented as of this encounter Visit Diagnoses Diagnosis Hx of AKA (above knee amputation), left (CMS/HCC HHS/HCC)- Primary Weakness Other malaise and fatigue documented in this encounter Additional Health Concerns Infection Onset Date Last Indicated Resolved Time MRSA Comment:07/29/22 [place] (RG) 07/30/22 +MRSA Right leg 03/03/23 +MRSA Right leg 07/30/2022 03/03/2023 documented as of this encounter Care Teams [employer] Operator Relationship Specialty Start Date End Date None, Provider, PCP - General 07/29/22 documented as of this encounter
--- OUTSIDE RECORDS SUMMARY | 2024-11-17 03:05 | XMS_ITS | Encounter Summary ---
Author Organization [facility] Address [facility] [place] [address] [place] [address] Care Team Providers Care Assembler Bonding Name Role Phone None, Provider MD Primary Care Provider Unavaila ble Reason for Referral * (Routine) - Closed Specialty Diagnoses / Procedures Referred By Jany martinez Referred To Contact Procedures Critical Care Bennett Roblero MD [address] [place] [address] Phone: tel: fax: Referral ID Status Reason Start Date Expiration Date Visits Re quested Visits Authorized [id number] Closed 08/21/2022 08/21/2023 1 1 Reason for Visit * Reason Comments Substance Abuse Suicidal Ideation Encounter Details Date Type Department Care Team (Late st Contact Info) Description 08/20/2022 10:59 PM CDT - 08/21/2022 6:30 AM CDT Emergency [facility] Emergency Services [address] [place] [address] Bennett Roblero MD [address] [place] [address] Substance Abuse; Suicidal Ideation Discharge Disposition: Home or Self Care (Routine [...] PM CDT documented as of this encounter Last [...] Mass Index 43.33 08/20/2022 11:07 PM CDT documented in this encounter Functional Status * RETIRED Are [...] Date Author Status No 07/30/2022 12:00 AM BRODERICKT Brandin Krishnamurthy RN Active documented in this encounter Medications at Time of Discharge amLODIPine (NORVASC) 10 MG tablet Take 1 tablet (10 mg total) by mouth daily for 30 days. 30 tablet 08/08/2022 2 carvedilol (COREG) 12.5 MG tabletIndications: Primary hypertension Take 1 tablet (12.5 mg total) by mouth 2 (two) times daily for 30 days. 60 tablet 08/07/2022 2 ferrous sulfate, 65 mg elemental, 325 (65 FE) MG tablet Take 1 tablet (325 mg total) by mouth daily with breakfast for 28 days. 28 tablet 08/07/2022 2 furosemide (LASIX) 20 MG tablet Take 1 tablet (20 mg total) by mouth daily for 28 days. 28 tablet 08/08/2022 2 insulin glargine (LANTUS) 100 UNIT/ML injection (VIAL) Inject 10 Units into the skin nightly at bedtime for 30 days. 3 mL 08/08/2022 2 insulin lispro (HUMALOG) 100 UNIT/ML injection (VIAL) Inject 5 Units into the skin 3 (three) times daily with meals. 4.5 mL 08/07/2022 2 documented as of this encounter ED Notes * Bennett Roblero MD - 08/21/2022 2:49 AM CDTAssociated Order(s): Critical Care Chief Complaint Chief Complaint Patient presents with ??? Substance Abuse ??? Suicidal Ideation History of Present Illness Gay is a 31 year old female with history of CHF, BOBBY, uncontrolled Diabetes, and HTN who presented to ER by EMS after taking all of her lasix, amlodipine, and iron around 2200. Patient stated that she just didn't want to live anymore. Patient was recently admitted 07-29-22 to [facility] ICU for hypoxic respiratory failure due to CHF and pneumonia. Patient currently denies any symptoms. Medical History ALLERGIES: No Known Allergies MEDICATIONS: Prior to Admission medications Medication Sig Start Date End Date Taking? Authorizing Provider amLODIPine (NORVASC) 10 MG tablet Take 1 tablet (10 mg total) by mouth daily for 30 days. 08/08/22 09/07/22 Veena Truong MD carvedilol (COREG) 12.5 MG tablet Take 1 tablet (12.5 mg total) by mouth 2 (two) times daily for 30days. 08/07/22 09/06/22 Veena Truong MD ferrous sulfate, 65 mg elemental, 325 (65 FE) MG tablet Take 1 tablet (325 mg total) by mouth dailywith breakfast for 28 days. 08/07/22 09/04/22 Veena Truong MD furosemide (LASIX) 20 MG tablet Take 1 tablet (20 mg total) by mouth daily for 28 days. 08/08/22 09/05/22 Veena Truong MD insulin glargine (LANTUS) 100 UNIT/ML injection (VIAL) Inject 10 Units into the skin nightly at bedtime for 30 days. 08/08/22 09/07/22 Veena Truong MD insulin lispro (HUMALOG) 100 UNIT/ML injection (VIAL) Inject 5 Units into the skin 3 (three) times daily with meals. 08/07/22 09/06/22 Veena Truong MD PAST MEDICAL HISTORY: Past Medical History: Diagnosis Date ??? Diabetes mellitus ([facility]/HCC) PAST SURGICAL HISTORY: No past surgical history on file. FAMILY HISTORY: No family history on file. SOCIAL HISTORY: Social History Tobacco Use ??? Smoking status: Never Smoker ??? Smokeless tobacco: Never Used Substance Use Topics ??? Alcohol use: Not Currently ??? Drug use: Never Review of Systems Review of Systems Gastrointestinal: Positive for nausea. All other systems reviewed and are negative. Physical Exam Filed Vitals: 08/21/22 0300 08/21/22 0400 08/21/22 0500 08/21/22 0600 BP: (!) 141/86 139/80 (!) 141/77 122/80 Pulse: 94 95 96 96 Resp: 21 23 20 Temp: 97.9 ??F (36.6 ??C) SpO2: 97% 96% 98% Weight: Height: Physical Exam Vitals and nursing note reviewed. Constitutional: Appearance: Normal appearance. She is obese. She is ill-appearing. HENT: Head: Normocephalic and atraumatic. Right Ear: Tympanic membrane, ear canal and external ear normal. Left Ear: Tympanic membrane, ear canal and external ear normal. Nose: Nose normal. Mouth/Throat: Mouth: Mucous membranes are moist. Pharynx: Oropharynx is clear. Eyes: Extraocular Movements: Extraocular movements intact. Conjunctiva/sclera: Conjunctivae normal. Pupils: Pupils are equal, round, and reactive to light. Cardiovascular: Rate and Rhythm: Regular rhythm. Tachycardia present. Pulses: Normal pulses. Heart sounds: Normal heart sounds. Pulmonary: Effort: Respiratory distress present. Breath sounds: Rales present. Abdominal: General: Abdomen is flat. Palpations: Abdomen is soft. Musculoskeletal: Cervical back: Normal range of motion and neck supple. Right lower le+ Pitting Edema present. Left lower le+ Pitting Edema present. Skin: General: Skin is warm and dry. Neurological: General: No focal deficit present. Mental Status: She is alert and oriented to person, place, and time. Psychiatric: Attention and Perception: Attention normal. Mood and Affect: Mood is depressed. Affect is flat. Speech: Speech normal. Behavior: Behavior is cooperative. Thought Content: Thought content includes suicidal ideation. Cognition and Memory: Cognition and memory normal. Diagnostic Studies / Procedures ELECTROCARDIOGRAMS: Results for orders placed or performed during the hospital encounter of 08/20/22 ECG 12 lead Narrative HFG Test Date: 2022-08-20 Pat Name: GAY CANALES Department: 100 Room: ED1 Gender: Female Repairer Screen Crusher: : 1990 Requested By: BENNETT ROBLERO Order Number: [id number] Reading MD: Homar Harmon Measurements Intervals [place] Rate: 100 P: 38 SC: 144 QRS: -12 QRSD: 86 T: 26 QT: 357 QTc: 461 Interpretive Statements SINUS TACHYCARDIA ABNORMAL RHYTHM ECG COMPARED TO PREVIOUS TRACING No significant change LABORATORY STUDIES: Results for orders placed or performed during the hospital encounter of 08/20/22 CBC W/DIFF AUTOMATED Result Value Ref Range WBC 8.8 4.5 - 11.0 x10'3/uL RBC 3.73 (L) 4.0 - 5.2 x10'6/uL HGB 9.9 (L) 12.0 - 16.0 G/DL HCT 33.0 (L) 36.0 - 46.0 % MCV 88.5 80.0 - 100.0 FL MCH 26.5 26.0 - 34.0 PG MCHC 30.0 (L) 31.0 - 37.0 G/DL RDW 14.7 11.6 - 14.8 % PLT 571 (H) 140 - 415 x10'3/uL MPV 10.6 7.0 - 12.0 FL CBC COMMENT AUTOMATED RBC MORPHOLOGY AND PLATELET EVALUATION NORMAL NEUTROPHILS 68.6 40.0 - 74.0 % LYMPHOCYTES 17.4 14.0 - 46.0 % MONOCYTES 9.5 4.0 - 13.0 % EOSINOPHILS 3.9 0.0 - 7.0 % BASOPHILS 0.1 0.0 - 3.0 % IMMATURE GRANS 0.5 (H) 0.0 - 0.43 % ABS. NEUTROPHILS TOTAL 6.05 1.69 - 7.81 x10'3/uL ABS. LYMPHOCYTES 1.53 0.21 - 5.42 x10'3/uL ABS. MONOCYTES 0.84 0.04 - 1.37 x10'3/uL ABS. EOSINOPHILS 0.34 0.00 - 0.68 x10'3/uL ABS. BASOPHILS 0.01 0.00 - 0.08 x10'3/uL ABS. IMMATURE GRANULOCYTES 0.04 0.00 - 0.06 x10'3/uL COMPREHENSIVE METABOLIC PANEL Result Value Ref Range GLUCOSE 200 (H) 70 - 99 MG/DL BUN 9 7 - 18 MG/DL CREATININE S/P/B 1.74 (H) 0.50 - 1.20 MG/DL SODIUM 145 136 - 145 MMOL/L POTASSIUM 2.9 (LL) 3.5 - 5.1 MMOL/L CHLORIDE S/P/B 109 (H) 100 - 108 MMOL/L CO2 28.1 21.0 - 32.0 MMOL/L CALCIUM 8.7 8.5 - 10.1 MG/DL BILIRUBIN TOTAL S/P/B 0.2 0.2 - 1.2 MG/DL TOTAL PROTEIN S/P/B 6.6 6.4 - 8.2 G/DL ALBUMIN S/P/B 1.7 (L) 3.4 - 5.0 G/DL AST 11 (L) 15 - 37 U/L ALT 18 14 - 55 U/L ALKALINE PHOSPHATASE S/P/B 98 50 - 136 U/L ANION GAP 7.9 5.0 - 15.0 MMOL/L BUN CREATININE RATIO 5.2 (L) 6 - 26 A/G RATIO 0.3 (L) 1.0 - 2.5 RATIO GFR ESTIMATE 40 (L) >90 ML/MIN/1.73 M2 TROPONIN, QUANT Result Value Ref Range TROPONIN I HIGH SENSITIVITY 11 0 - 54 ng/L ACETAMINOPHEN Result Value Ref Range Acetaminophen 0 (L) 10.0 - 30.0 MCG/ML ETHANOL Result Value Ref Range Alcohol <0.003 0.000 - 0.080 G/DL SALICYLATE Result Value Ref Range Salicylates 0.9 (L) 2.8 - 20.0 MG/DL URINALYSIS WI REFLEX TO CULTURE Specimen: URINE, VOIDED Result Value Ref Range COLOR (U) YELLOW YELLOW TRANSPARENCY SLIGHTLY CLOUDY (A) CLEAR Specific [place] (U) 1.015 1.010 - 1.025 U PH 6.0 5.0 - 8.5 LEUKOCYTE ESTERASE TRACE (A) NEGATIVE NITRITES NEGATIVE NEGATIVE PROTEIN (U) 2+ (A) NEGATIVE URINE GLUCOSE 1+ (A) NEGATIVE U KETONES NEGATIVE NEGATIVE UROBILINOGEN 0.2 0.2 - 1.0 EU/DL BILIRUBIN (U) NEGATIVE NEGATIVE BLOOD 2+ (A) NEGATIVE WBC/HPF 5-10 0 - 5 /HPF CULTURE & SENSITIVITY INDICATED? SPECIMEN SETUP FOR CULTURE RBC/HPF 10-20 0 - 2 /HPF EPI/HPF 20-50 0 - 5 /HPF BACTERIA (URINE) 1+ (A) NEGATIVE /HPF URINE, OTHER CASTS 0-5 0 - 5 /LPF DRUG SCREEN RAPID Result Value Ref Range AMPHETAMINE SCREEN (U) NEGATIVE NEGATIVE BARBITURATES SCREEN (U) NEGATIVE NEGATIVE BENZODIAZEPINES SCREEN (U) NEGATIVE NEGATIVE BUPRENORPHINE SCREEN (U) NEGATIVE NEGATIVE COCAINE METABOLITES (U) NEGATIVE NEGATIVE METHAMPHETAMINE (U) NEGATIVE NEGATIVE METHADONE (U) NEGATIVE NEGATIVE OPIATE SCREEN (U) NEGATIVE NEGATIVE OXYCODONE SCREEN (U) NEGATIVE NEGATIVE PHENCYCLIDINE PCP (U) NEGATIVE NEGATIVE PROPOXYPHENE SCREEN (U) NEGATIVE NEGATIVE CANNABINOIDS SCREEN (U) NEGATIVE NEGATIVE TRICYCLIC ANTIDEPRESSANT SCREEN (U) NEGATIVE NEGATIVE U PH 6.0 Specific Henderson (U) 1.015 LACTIC ACID Result Value Ref Range LACTIC ACID 0.9 0.5 - 2.0 MMOL/L PRO-BRAIN NATRIURETIC PEPTIDE Result Value Ref Range PRO-BRAIN NATRIURETIC PEPTIDE 3,111 (H) 0 - 125 PG/ML BASIC METABOLIC PANEL Result Value Ref Range GLUCOSE 219 (H) 70 - 99 MG/DL BUN 8 7 - 18 MG/DL CREATININE S/P/B 1.74 (H) 0.50 - 1.20 MG/DL SODIUM 146 (H) 136 - 145 MMOL/L POTASSIUM 2.9 (LL) 3.5 - 5.1 MMOL/L CHLORIDE S/P/B 109 (H) 100 - 108 MMOL/L CO2 28.8 21.0 - 32.0 MMOL/L CALCIUM 8.4 (L) 8.5 - 10.1 MG/DL ANION GAP 8.2 5.0 - 15.0 MMOL/L BUN CREATININE RATIO 4.6 (L) 6 - 26 GFR ESTIMATE 40 (L) >90 ML/MIN/1.73 M2 CORONAVIRUS (COVID-19) RAPID ANTIGEN [IN HOUSE] Specimen: NASAL Result Value Ref Range CORONAVIRUS ANTIGEN IA NEGATIVE NEGATIVE Specimen Type NASAL FIRST TEST YES EMPLOYED IN HEALTHCARE NO SYMPTOMATIC DEFINED BY CDC NO HOSPITALIZATION STATUS NO RESIDENT OF [facility] NO NOT IMAGING STUDIES XR CHEST PORTABLE (Results Pending) Critical Care Performed by: Bennett Roblero MD Authorized by: Bennett Roblero MD Critical care provider statement: Critical care time (minutes): 30 Critical care time was exclusive of: Separately billable procedures and treating other patients andteaching time Critical care was necessary to treat or prevent imminent or life-threatening deterioration of the following conditions: Respiratory failure and metabolic crisis Critical care was time spent personally by me on the following activities: Development of treatmentplan with patient or surrogate, discussions with consultants, evaluation of patient's response to treatment, examination of patient, obtaining history from patient or surrogate, ordering and performing treatments and interventions, ordering and review of laboratory studies, ordering and review of radiographic studies, pulse oximetry, re-evaluation of patient's condition and review of old charts I assumed direction of critical care for this patient from another provider in my specialty: no Care discussed with: accepting provider at another facility ED Course / Medical Decision Making Gay is a 31 year old female who presented after an overdose of lasix, amlodipine, and iron. Patient was hypoxic at 86% upon arrival. Patient was found to also have CHF and pneumonia. Potassium was 2.9. Patient was given 40 meq PO. BMP was checked only about 40 minutes after administration. Patient may need further replacement. Creatinine was also elevated at 1.74. BNP was 3,111. Patient was just monitored because she took potentially 240 mg of lasix. Will transfer patient for further monitoring and treatment of CHF, pneumonia, and psychiatric issues. ED Course as of 08/21/22703Aug 21, 2022 0008 [facility] connect - No ICU beds available [COTY] 0228 [facility] - will call back with bed availability [COTY] [facility] connect called again to decrease level of service needed. No beds available. [COTY] 0355 Dr. Andrade hospitalist accepted. [COTY] ED Course User Index [COTY] Bennett Roblero MD Clinical Impression Hypoxia (Primary) Intentional overdose (CMS/HCC) CHF (congestive heart failure) (CMS/HCC) Pneumonia Disposition: Transfer to Another Facility Bennett Roblero MD 08/21/22703 * Tamar Portillo RN - 08/21/2022 2:06 AM CDT Poison control updated on labs and Pt condition. Pt remains alert and oriented when awake. Pt resting now, easy to arouse. * Tamar Portillo RN - 08/20/2022 11:49 PM CDT Poison control aware of ingestion. Case # [id number]. Recommendation serial BMP, with at least 2 results, monitor CO2 for acidosis, if acidotic consider transfer for chelation. Clint call back with CMP results. * Tamar Portillo RN - 08/20/2022 11:39 PM CDT Poison control contacted. Pt ingestion of 20mg lasix tablets, 10mg amlodipine tabs, and 325mg iron tablets. approx 18 of each ingestion approx 2200 * Tamar Portillo RN - 08/20/2022 11:07 PM CDT Pt arrived via EMS with c/o SI and intentional OD with lasix, amlodipine, and ferrous sulfate approx 2200 documented in this encounter Plan of Treatment Not on file documented as of this encounter Goals Goal Patient Goal Type Associated Problems Recent Progress Patient-Stated? Author Safety ? Patient/family will have appropriate support at home upon discharge Lifestyle No Ashlee Hein RN documented as of this encounter Procedures Procedure Name Priority Date/Time Associated Diagnosis Comments CORONAVIRUS (COVID-19) ANTIGEN DIRECT OPTICAL STAT 08/21/2022 4:10 AM CDT BASIC METABOLIC PANEL STAT 08/21/2022 3:00 AM CDT CRITICAL CARE Routine 08/21/2022 2:49 AM CDT URINALYSIS WI REFLEX TO CULTURE STAT 08/21/2022 12:40 AM CDT DRUG SCREEN RAPID STAT 08/21/2022 12: 40 AM CDT TEST URINE Routine 08/21/2022 12:40 AM CDT URINE BACTERIA CULTURE Routine 12:40 AM CDT ECG 12-LEAD Routine 08/20/2022 11:33 PM CDT PRO-BRAIN NATRIURETIC PEPTIDE STAT 08/20/2022 11:31 PM CDT COMPREHENSIVE METABOLIC PANEL STAT 08/20/2022 11:31 PM CDT LACTIC ACID STAT 08/20/2022 11:31 PM CDT CBC W/DIFF AUTOMATED STAT 08/20/2022 11:31 PM CDT TROPONIN, QUANT STAT 08/20/2022 11:31 PM CDT SALICYLATE STAT 08/20/2022 11:31 PM CDT ETHANOL STAT 08/20/2022 11:31 PM CDT ACETAMINOPHEN STAT 08/20/2022 11:31 PM CDT XR CHEST PORTABLE STAT 08/20/2022 11: 24 PM CDT CULTURE, BACTERIA, BLOOD STAT 08/20/2022 11:15 PM CDT CULTURE, BACTERIA, BLOOD STAT 08/20/2022 10:31 PM CDT documented in this encounter Results * CORONAVIRUS (COVID-19) RAPID ANTIGEN [IN HOUSE] (08/21/2022 4:10 AM CDT) [facility] CORONAVIRUS ANTIGEN IA NEGATIVE NEGATIVE 08/21/2022 4:55 AM CDT [facility] Comment: NEGATIVE RESULTS DO NOT RULE OUT SARS-COV-2 INFECTION AND SHOULD NOT BE USED THE SOLE BASIS FOR TREATMENT OR PATIENT MANAGEMENT DECISIONS, INCLUDING INFECTION CONTROL DECISIONS. NEGATIVE RESULTS SHOULD BE CONSIDERED IN THE CONTEXT OF A PATIENT'S RECENT EXPOSURES, HISTORY AND THE PRESENCE OF CLINICAL SIGNS AND SYMPTOMS CONSISTENT WITH COVID 19. THIS TEST HAS BEEN AUTHORIZED BY THE FDA UNDER AN EMERGENCY USE AUTHORIZATION (EUA) FOR USE BY AUTHORIZED LABORATORIES. SPECIMEN TYPE NASAL 08/21/2022 4:10 AM CDT [facility] FIRST TEST YES 08/21/2022 4:10 AM CDT [facility] EMPLOYED IN HEALTHCARE NO 08/21/2022 4:10 AM CDT [facility] SYMPTOMATIC DEFINED BY CDC NO 08/21/2022 4:10 AM CDT [facility] HOSPITALIZATION STATUS NO 08/21/2022 4:10 AM CDT [facility] RESIDENT OF [facility] NO 08/21/2022 4:10 AM CDT [facility] NOT 08/21/2022 4:10 AM CDT [facility] NASAL NASAL STRUCTURE / Unknown 08/21/2022 4:10 AM CDT us Bennett Roblero MD MICROBIOLOGY - GENERAL ORDERABLE S Final Result [facility] [address] [place] [address], * (ABNORMAL) BASIC METABOLIC PANEL (08/21/2022 3:00 AM CDT) GLUCOSE 219(H) 70 - 99 MG/DL 08/21/2022 4:24 AM CDT [facility] BUN 8 7 - 18 MG/DL 08/21/2022 4:24 AM CDT [facility] CREATININE S/P/B 1.74(H) 0.50 - 1.20 MG/DL 08/21/2022 4:24 AM CDT [facility] SODIUM S/P/B 146(H) 136 - 145 MMOL/L 08/21/2022 4:24 AM CDT [facility] POTASSIUM S/P/B 2.9(LL) 3.5 - 5.1 MMOL/L 08/21/2022 4:24 AM CDT [facility] Comment: CRITICAL VALUE CALLED RESULT READ BACK AND VERIFIED TAMAR PORTILLO RN IN ED. 0424 BB CHLORIDE S/P/B 109(H) 100 - 108 MMOL/L 08/21/2022 4:24 AM CDT [facility] CO2 28.8 21.0 - 32.0 MMOL/L 08/21/2022 4:24 AM CDT [facility] CALCIUM S/P/B 8.4(L) 8.5 - 10.1 MG/DL 08/21/2022 4:24 AM CDT [facility] ANION GAP 8.2 5.0 - 15.0 MMOL/L 08/21/2022 4:24 AM CDT [facility] BUN CREATININE RATIO 4.6(L) 6 - 26 08/21/2022 4:24 AM CDT [facility] GFR ESTIMATE 40(L) >90 ML/MIN/1.7 3 M2 08/21/2022 4:24 AM CDT [facility] Comment: NOTE: eGFR is not calculated for patients <18 years of age. This is an estimated GFR calculation using the new CKD EPI creatinine equation without race and so does not require a correction factor for race. This estimated GFR should not be used for calculating drug doses. 08/21/2022 3:00 AM CDT us Bennett Roblero MD LABORATORY Final Result [address] [place] [address], * Critical Care (08/21/2022 2:49 AM CDT) Narrative Bennett Roblero MD - 08/21/2022 2:49 AM CDT Bennett Roblero MD ? 08/21/2022 ??7:04 AM Critical Care Performed by: Bennett Roblero MD Authorized by: Bennett Roblero MD Critical care provider statement: ??Critical care time (minutes): ??30 ??Critical care time was exclusive of: ??Separately billable procedures and treating other patients and teaching time ??Critical care was necessary to treat or prevent imminent or life-threatening deterioration of the following conditions: ??Respiratory failure and metabolic crisis ??Critical care was time spent personally by me on the following activities: ??Development of treatment plan with patient or surrogate, discussions with consultants, evaluation of patient's response to treatment, examination of patient, obtaining history from patient or surrogate, ordering and performing treatments and interventions, ordering and review of laboratory studies, ordering and review of radiographic studies, pulse oximetry, re-evaluation of patient's condition and review of old charts ??I assumed direction of critical care for this patient from another provider in my specialty: no ?Care discussed with: accepting provider at another facility ?? Bennett Roblero MD PROCEDURE/MINOR SURGICAL ORDERAB LES Final Result * CULTURE URINE (08/21/2022 12:40 AM CDT) SPEC DESCRIPTION URINE CLEAN CATCH 08/21/2022 4:22 AM CDT [facility] SPECIAL REQUESTS NO SPECIAL REQUEST 08/21/2022 4:22 AM CDT [facility] CULTURE RESULT POLYMICROBIAL GROWTH CONSISTENT WITH NORMAL GENITAL BALDOMERO. ?? SUSCEPTIBILITIES NOT ROUTINELY PERFORMED. 08/23/2022 8:16 AM CDT [facility] URINE SPECIMEN OBTAINED BY CLEAN CATCH PROCEDURE / Unknown 08/21/2022 12:40 AM CDT 08/21/2022 4:21 AM CDT Bennett Roblero MD MICROBIOLOGY - GENERAL ORDERABLE S Final Result [facility] [address] [place] [address], [facility] [address] [place] [address] [place] [address], * TEST URINE (08/21/2022 12:40 AM CDT) URINE HCG TEST NEGATIVE NEGATIVE 08/21/2022 7:13 AM CDT [facility] SPECIFIC GRAVITY (U) 1.015 1.010 - 1.025 08/21/2022 7:13 AM CDT [facility] URINE SPECIMEN FROM URETHRA / Unknown 08/21/2022 12:40 AM CDT us Bennett Roblero MD URINE ORDERABLES Final Result [facility] [address] [place] [address], * DRUG SCREEN RAPID (08/21/2022 12:40 AM CDT) [facility] AMPHETAMINE SCREEN (U) NEGATIVE NEGATIVE 08/21/2022 1:45 AM CDT [facility] BARBITURATES SCREEN (U) NEGATIVE NEGATIVE 08/21/2022 1:45 AM CDT [facility] BENZODIAZEPINES SCREEN (U) NEGATIVE NEGATIVE 08/21/2022 1:45 AM CDT [facility] BUPRENORPHINE SCREEN (U) NEGATIVE NEGATIVE 08/21/2022 1:45 AM CDT [facility] COCAINE METABOLITES (U) NEGATIVE NEGATIVE 08/21/2022 1:45 AM CDT [facility] METHAMPHETAMINE (U) NEGATIVE NEGATIVE 08/21 1:45 AM CDT [facility] METHADONE (U) NEGATIVE NEGATIVE 08/21/2022 1:45 AM CDT [facility] OPIATE SCREEN (U) NEGATIVE NEGATIVE 022 1:45 AM CDT [facility] OXYCODONE SCREEN (U) NEGATIVE NEGATIVE 08/21/2022 1:45 AM CDT [facility] PHENCYCLIDINE PCP (U) NEGATIVE NEGATIVE 08/21/2022 1:45 AM CDT [facility] PROPOXYPHENE SCREEN (U) NEGATIVE NEGATIVE 08/21/2022 1:45 AM CDT [facility] CANNABINOIDS SCREEN (U) NEGATIVE NEGATIVE 08/21/2022 1:45 AM CDT [facility] TRICYCLIC ANTIDEPRESSANT SCREEN (U) NEGATIVE NEGATIVE 08/21/2022 1:45 AM CDT [facility] Comment: NOTE: RESULTS OF THIS DRUG SCREEN SHOULD BE USED FOR MEDICAL PURPOSES ONLY AND NOT FOR LEGAL AND EMPLOYMENT PURPOSES. CALL THE LAB IF POSITIVE RESULTS NEED CONFIRMATORY TESTING. EPHEDRINE MAY CAUSE FALSE POSITIVE AMPHETAMINE Cut-off Concentration for a positive result AMPHETAMINE- ?500 NG/ML BARBITURATE- ?200 NG/ML BENZODIAZEPINE- ?? 150 NG/ML BUPRENORPHINE- ? 10 NG/ML COCAINE- ?150 NG/ML METHAMPHETAMINES- 500 NG/ML METHADONE- ?200 NG/ML OPIATE- ? 100 NG/ML OXYCODONE- ?100 NG/ML PCP- ? 25 NG/ML PROPOXYPHENE- ? 300 NG/ML THC- ? 50 NG/ML TCA- ?300 NG/ML U PH 6.0 08/21/2022 1:45 AM CDT [facility] SPECIFIC GRAVITY (U) 1.015 08/21/2022 1:45 AM CDT [facility] URINE SPECIMEN / Unknown 08/21/2022 12:40 AM CDT us Bennett Roblero MD URINE ORDERABLES Final Result Performing Organization Address City/State/[facility] Co de Phone Number [facility] [address] [place] [address], * (ABNORMAL) URINALYSIS WI REFLEX TO CULTURE (08/21/2022 12:40 AM CDT) COLOR (U) YELLOW YELLOW 08/21/2022 1:43 AM CDT [facility] TRANSPARENCY SLIGHTLY CLOUDY(A) CLEAR 08/21/2022 1:43 AM CDT [facility] SPECIFIC GRAVITY (U) 1.015 1.010 - 1.025 08/21/2022 1:43 AM CDT [facility] U PH 6.0 5.0 - 8.5 08/21/2022 1:43 AM CDT [facility] LEUKOCYTES (U) TRACE(A) NEGATIVE 08/21/2022 1:43 AM CDT [facility] NITRITES NEGATIVE NEGATIVE 08/21/2022 1:43 AM CDT [facility] PROTEIN (U) 2+(A) NEGATIVE 08/21/2022 1:43 AM CDT [facility] URINE GLUCOSE 1+(A) NEGATIVE 08/21/2022 1:43 AM CDT [facility] KETONES MG/DL (U) NEGATIVE NEGATIVE 08/21/2022 1:43 AM CDT [facility] UROBILINOGEN 0.2 0.2 - 1.0 EU/DL 08/21/2022 1:43 AM CDT [facility] BILIRUBIN (U) NEGATIVE NEGATIVE 08/21/2022 1:43 AM CDT [facility] BLOOD (U) 2+(A) NEGATIVE 08/21/2022 1:43 AM CDT [facility] WBC/HPF 5-10 0 - 5 /HPF 08/21/2022 1:43 AM CDT [facility] CULTURE & SENSITIVITY INDICATED? SPECIMEN SETUP FOR CULTURE 08/21/2022 1:43 AM CDT [facility] RBC/HPF 10-20 0 - 2 /HPF 08/21/2022 1:43 AM CDT [facility] EPI/HPF 20-50 0 - 5 /HPF 08/21/2022 1:43 AM CDT [facility] BACTERIA (U) 1+(A) NEGATIVE /HPF 08/21/2022 1:43 AM CDT [facility] OTHER CASTS (U) 0-5 0 - 5 /LPF 1:43 AM CDT [facility] Comment:HYALINE URINE SPECIMEN FROM URETHRA / Unknown 08/21/2022 12:40 AM CDT us Bennett Roblero MD URINE ORDERABLES Final Result [facility] [address] [place] [address], [place] * ECG 12 lead (08/20/2022 11:33 PM CDT) 08/20/2022 11:3 3 PM CDT Narrative [facility] - 08/21/2022 6:33 AM CDT ? HFG ? Test Date: ?2022-08-20 Pat Name: ? AGY CANALES ? Department: ?? 100 ? Room: ? ED1 Gender: ? Female ? Repairer Screen Crusher: ?? : ?1990 ? Requested By: BENNETT ROBLERO Order Number: [id number] ? Reading MD: ?? Homar Harmon ? Measurements Intervals ?[place] ? Rate: ? 100 ?P: ?38 SC: ? 144 ?QRS: ?-12 QRSD: ? 86 ? T: ?26 QT: ? 357 ? QTc: ?461 ? 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: : 1990 Requested By: BENNETT ROBLERO Order Number: [id number] Reading MD: Homar Harmon Measurements Intervals [place] Rate: 100 P: 38 SC: 144 QRS: -12 QRSD: 86 T: 26 QT: 357 QTc: 461 Interpretive Statements SINUS TACHYCARDIA ABNORMAL RHYTHM ECG COMPARED TO PREVIOUS TRACING No significant change us Bennett Roblero MD ECG ORDERABLES Final Result [facility] [address] [address] * (ABNORMAL) PRO-BRAIN NATRIURETIC PEPTIDE (08/20/2022 11:31 PM CDT) PRO-BRAIN NATRIURETIC PEPTIDE 3,111(H) 0 - 125 PG/ML 08/21/2022 1:34 AM CDT [facility] 08/20/2022 11:3 1 PM CDT Bennett Roblero MD LABORATORY Final Result Performing Organization Address [facility]/ZIP Co de Phone Number [facility] [address] [facility] [place] [address], [place] * LACTIC ACID (08/20/2022 11:31 PM CDT) Pathologist [facility] LACTIC ACID VENOUS 0.9 0.5 - 2.0 MMOL/L 08/21/2022 12:00 AM CDT [facility] 08/20/2022 11:3 1 PM CDT Bennett Roblero MD LABORATORY Final Result Performing Organization Address [facility] Co de Phone Number [facility] [address] [facility] [place] [address], [place] * (ABNORMAL) SALICYLATE (08/20/2022 11:31 PM CDT) [facility] SALICYLATES 0.9(L) 2.8 - 20.0 MG/DL 08/21/2022 1:06 AM CDT [facility] 08/20/2022 11:3 1 PM CDT Bennett Roblero MD LABORATORY Final Result Performing Organization Address City/[facility]/ZIP Co de Phone Number [address] [place] [address], [place] * ETHANOL (08/20/2022 11:31 PM CDT) ALCOHOL S/P/B <0.003 0.000 - 0.080 G/DL 08/21/2022 1:45 AM CDT [facility] 08/20/2022 11:3 1 PM CDT Bennett Roblero MD LABORATORY Final Result Performing Organization Address [facility] Co de Phone Number [facility] [address] [place] [address], [place] * (ABNORMAL) ACETAMINOPHEN (08/20/2022 11:31 PM CDT) ACETAMINOPHEN S/P/B 0(L) 10.0 - 30.0 MCG/ML 08/21/2022 1:34 AM CDT [facility] 08/20/2022 11:3 1 PM CDT Bennett Roblero MD LABORATORY Final Result Performing Organization Address [facility] Phone Number [facility] [address] [facility] [place] [address], [place] * TROPONIN, QUANT (08/20/2022 11:31 PM CDT) TROPONIN I HIGH SENSITIVITY 11 0 - 54 ng/L 08/21/2022 12:00 AM CDT [facility] Comment: HIGH DOSES OF BIOTIN, TROPONIN-SPECIFIC AUTOANTIBODIES, AND ANTIBODY THERAPY CONTAINING HAMA MAY INTERFERE WITH THIS TEST RESULT. CORRELATION TO CLINICAL HISTORY AND PRESENTATION RECOMMENDED. 08/20/2022 11:3 1 PM CDT Bennett Roblero MD LABORATORY Final Result Performing Organization Address [facility] Co de Phone Number [facility] [address] [facility] [place] [address], [place] * (ABNORMAL) COMPREHENSIVE METABOLIC PANEL (08/20/2022 11:31 PM CDT) GLUCOSE 200(H) 70 - 99 MG/DL 08/21/2022 1:34 AM CDT [facility] BUN 9 7 - 18 MG/DL 08/21/2022 1:34 AM CDT [facility] CREATININE S/P/B 1.74(H) 0.50 - 1.20 MG/DL 08/21/2022 1:34 AM CDT [facility] SODIUM S/P/B 145 136 - 145 MMOL/L 08/21/2022 1:34 AM CDT [facility] POTASSIUM S/P/B 2.9(LL) 3.5 - 5.1 MMOL/L 08/21/2022 1:34 AM CDT [facility] Comment: CRITICAL VALUE CALLED RESULT READ BACK AND VERIFIED HALINA ROMERO RN IN ED. 0130 BB CHLORIDE S/P/B 109(H) 100 - 108 MMOL/L 08/21/2022 1:34 AM CDT [facility] CO2 28.1 21.0 - 32.0 MMOL/L 08/21/2022 1:34 AM CDT [facility] CALCIUM S/P/B 8.7 8.5 - 10.1 MG/DL 08/21/2022 1:34 AM CDT [facility] BILIRUBIN TOTAL S/P/B 0.2 0.2 - 1.2 MG/DL 08/21/2022 1:34 AM CDT [facility] Comment: THIS ASSAY IS NOT RECOMMENDED FOR PATIENTS UNDERGOING TREATMENT WITH ELTROMBOPAG DUE TO THE POTENTIAL FOR FALSELY ELEVATED RESULTS. TOTAL PROTEIN S/P/B 6.6 6.4 - 8.2 G/DL 08/21/2022 1:34 AM CDT [facility] ALBUMIN S/P/B 1.7(L) 3.4 - 5.0 G/DL 08/21/2022 1:34 AM CDT [facility] AST 11(L) 15 - 37 U/L 08/21/2022 1:34 AM CDT [facility] ALT 18 14 - 55 U/L 08/21/2022 1:34 AM CDT [facility] ALKALINE PHOSPHATASE S/P/B 98 50 - 136 U/L 08/21/2022 1:34 AM CDT [facility] ANION GAP 7.9 5.0 - 15.0 MMOL/L 08/21/2022 1:34 AM CDT [facility] BUN CREATININE RATIO 5.2(L) 6 - 26 08/21/2022 1:34 AM CDT [facility] A/G RATIO 0.3(L) 1.0 - 2.5 RATIO 08/21/2022 1:34 AM CDT [facility] GFR ESTIMATE 40(L) >90 ML/MIN/1.7 3 M2 08/21/2022 1:34 AM CDT [facility] Comment: NOTE: eGFR is not calculated for patients <18 years of age. This is an estimated GFR calculation using the new CKD EPI creatinine equation without race and so does not require a correction factor for race. This estimated GFR should not be used for calculating drug doses. 08/20/2022 11:3 1 PM CDT us Bennett Roblero MD LABORATORY Final Result [address] [place] [address], * (ABNORMAL) CBC W/DIFF AUTOMATED (08/20/2022 11:31 PM CDT) WBC 8.8 4.5 - 11.0 x10'3/uL 08/20/2022 11:43 PM CDT [facility] RBC 3.73(L) 4.0 - 5.2 x10'6/uL 08/20/2022 11:43 PM CDT [facility] HGB 9.9(L) 12.0 - 16.0 G/DL 08/20/2022 11:43 PM CDT [facility] HCT 33.0(L) 36.0 - 46.0 % 08/20/2022 11:43 PM CDT [facility] MCV 88.5 80.0 - 100.0 FL 08/20/2022 11:43 PM CDT [facility] MCH 26.5 26.0 - 34.0 PG 08/20/2022 11:43 PM CDT [facility] MCHC 30.0(L) 31.0 - 37.0 G/DL 08/20/2022 11:43 PM CDT [facility] RDW 14.7 11.6 - 14.8 % 08/20/2022 11:43 PM CDT [facility] PLT 571(H) 140 - 415 x10'3/uL 08/20/2022 11:43 PM CDT [facility] MPV 10.6 7.0 - 12.0 FL 08/20/2022 11:43 PM CDT [facility] CBC COMMENT AUTOMATED RBC MORPHOLOGY AND PLATELET EVALUATION NORMAL 08/20/2022 11:43 PM CDT [facility] NEUTROPHILS % 68.6 40.0 - 74.0 % 08/20/2022 11:43 PM CDT [facility] LYMPHOCYTES % 17.4 14.0 - 46.0 % 08/20/2022 11:43 PM CDT [facility] MONOCYTES % 9.5 4.0 - 13.0 % 08/20/2022 11:43 PM CDT [facility] EOSINOPHILS 3.9 0.0 - 7.0 % 08/20/2022 11:43 PM CDT [facility] BASOPHILS 0.1 0.0 - 3.0 % 08/20/2022 11:43 PM CDT [facility] IMMATURE GRANS % 0.5(H) 0.0 - 0.43 % 08/20/2022 11:43 PM CDT [facility] ABS. NEUTROPHILS TOTAL 6.05 1.69 - 7.81 x10'3/uL 08/20/2022 11:43 PM CDT [facility] ABS. LYMPHOCYTES 1.53 0.21 - 5.42 x10'3/uL 08/20/2022 11:43 PM CDT [facility] ABS. MONOCYTES 0.84 0.04 - 1.37 x10'3/uL 08/20/2022 11:43 PM CDT [facility] ABS. EOSINOPHILS 0.34 0.00 - 0.68 x10'3/uL 08/20/2022 11:43 PM CDT [facility] ABS. BASOPHILS 0.01 0.00 - 0.08 x10'3/uL 08/20/2022 11:43 PM CDT [facility] ABS. IMMATURE GRANULOCYTES 0.04 0.00 - 0.06 x10'3/uL 08/20/2022 11:43 PM CDT [facility] 08/20/2022 11:3 1 PM CDT us Bennett Roblero MD LABORATORY Final Result [facility] [address] [address], [place] * XR CHEST PORTABLE (08/20/2022 11:24 PM CDT) Anatomical Region Laterality Modality Chest Computed Tomogra phy 08/21/2022 8:11 AM CDT Impressions 08/21/2022 8:13 AM CDT IMPRESSION: 1. ??Exam is positive for extensive bilateral alveolar opacities with asymmetric marked confluent consolidative opacities in the right mid and lower lung field. This has advanced since prior exam. May be due to atypical infectious process or asymmetric pulmonary edema.. 2. ??Small bilateral pleural effusions. No pneumothorax.. 3. ??Mild cardiomegaly. Osseous structures intact.. Ordered By: BENNETT ROBLERO Interpreted By: Remigio Duggan, 08/21/2022 8:11 AM Narrative 08/21/2022 8:13 AM CDT IMAGING STUDIES: XR CHEST PORTABLE ? DATE: 08/20/2022 11:24 PM CLINICAL HISTORY: hypoxia ?? . COMPARISON: 07/29/2022 Procedure Note Adam Duggan MD - 08/21/2022 IMAGING STUDIES: XR CHEST PORTABLE DATE: 08/20/2022 11:24 PM CLINICAL HISTORY: hypoxia . COMPARISON: 07/29/2022 IMPRESSION: 1. Exam is positive for extensive bilateral alveolar opacities withasymmetric marked confluent consolidative opacities in the right mid andlower lung field. This has advanced since prior exam. May be due toatypical infectious process or asymmetric pulmonary edema.. 2. Small bilateral pleural effusions. No pneumothorax.. 3. Mild cardiomegaly. Osseous structures intact.. Ordered By: BENNETT ROBLERO Interpreted By: Remigio Duggan, 08/21/2022 8:11 AM Bennett Roblero MD GENERAL IMAGING Final Result * CULTURE, BACTERIA, BLOOD (08/20/2022 11:15 PM CDT) SPEC DESCRIPTION BLOOD 08/20/2022 11:09 PM CDT [facility] SPECIAL REQUESTS NO SPECIAL REQUEST 08/20/2022 11:09 PM CDT [facility] CULTURE RESULT NO GROWTH 5 DAYS 08/25/2022 2:01 PM CDT [facility] BLOOD SPECIMEN OBTAINED FOR BLOOD CULTURE / Unknown 08/20/2022 11:15 PM CDT 08/20/2022 11:40 PM CDT Bennett Roblero MD MICROBIOLOGY - GENERAL ORDERABLE S Final Result [facility] [address] [place] [address], [place] [phone] [facility] [address] [place] [address] [place] [address], [place] * CULTURE, BACTERIA, BLOOD (08/20/2022 10:31 PM CDT) SPEC DESCRIPTION BLOOD 08/20/2022 11:09 PM CDT [facility] SPECIAL REQUESTS NO SPECIAL REQUEST 08/20/2022 11:09 PM CDT [facility] CULTURE RESULT NO GROWTH 5 DAYS 08/25/2022 2:01 PM CDT [facility] BLOOD SPECIMEN OBTAINED FOR BLOOD CULTURE / Unknown 08/20/2022 10:31 PM CDT 08/20/2022 11:40 PM CDT us Bennett Roblero MD MICROBIOLOGY - GENERAL ORDERABLE S Final Result [facility] [address] [place] [address], [facility] [address] [address], documented in this encounter Visit Diagnoses Diagnosis Hypoxia- Primary Hypoxemia Intentional overdose ([facility]) CHF (congestive heart failure) ([facility]) Congestive heart failure, unspecified Pneumonia Pneumonia, organism unspecified documented in this encounter Administered Medications Inactive Administered Medications - up to 3 most recent administrations Medication Order MAR Action Action Date Dose Rate Site ceFEPIme (MAXIPIME) 2 g in sterile water 10 mL IV 2 g, Intravenous, Administer over 5 Minutes, Once, 1 dose, On Fri08/21/22 at 0015 Given 08/21/2022 12:55 AM CDT 2 g 120 mL/hr potassium chloride CR (KLOR-CON M) tablet 40 mEq 40 mEq, Oral, Once, 1 dose, On Fri08/21/22 at 0215, Do not chew, crush, or suck on tablet. May break in half. May dissolve whole tablet in 120 mL of water and drink immediately. Given 08/21/2022 2:14 AM CDT 40 mEq documented in this encounter Active and Recently Administered Medications Times are shown in CDT. Scheduled Medication Order 08/19/2022 08/20/2022 08/21/2022 ceFEPIme (MAXIPIME) 2 g in sterile water 10 mL IV (COMPLETED) 2 g, Intravenous, Administer over 5 Minutes, Once, 1 dose, On Fri08/21/22 at 0015 0055 (Given - Provid er: Tamar Portillo RN) potassium chloride CR (KLOR-CON M) tablet 40 mEq (COMPLETED) 40 mEq, Oral, Once, 1 dose, On Fri08/21/22 at 0215, Do not chew, crush, or suck on tablet. May break in half. May dissolve whole tablet in 120 mL of water and drink immediately. 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
--- OUTSIDE RECORDS SUMMARY | 2024-11-17 03:05 | XMS_ITS | Encounter Summary ---
Author Organization [facility] Address [facility] [facility] [address] [place] [address] Care Team Providers Care Cylinder Sander Operator Name Role Phone None, Provider Primary Care Provider Unavaila ble Encounter Details Date Type Department Care Team (Latest Contact Info) Description 01/27/2023 Travel Social History Tobacco Use Types Packs/Day [...] documented as of this encounter Care Teams Cylinder Sander Operator Relationship Specialty Start Date End Date None, Provider, PCP - General 07/29/22 documented as of this encounter
--- OUTSIDE RECORDS SUMMARY | 2024-11-17 03:05 | XMS_ITS | Encounter Summary ---
Author Organization [facility] Address [facility] [place] [address] [place] [address] Care Team Providers Care Executive Coordinator Name Role Phone None, Provider MD Primary Care Provider Unavaila ble Reason for Visit * Reason Comments Above Knee Amputation * Physical Therapy (Routine) - Closed Specialty Diagnoses / Procedures Referred By Jany martinez Referred To Contact [facility] Physical Therapy Diagnoses Acquired absence of left leg above knee ([facility]/HCC HHS/HCC) Encounter for orthopedic aftercare following surgical amputation Other abnormalities of gait and mobility Phantom limb syndrome with pain (CMS/HCC HHS/HCC) Unspecified diastolic (congestive) heart failure (CMS/HCC HHS/HCC) Hypertensive heart disease with heart failure (CMS/HCC HHS/HCC) Pressure ulcer of right heel, unstageable (CMS/HCC HHS/HCC) Pressure ulcer of left buttock, stage 3 (CMS/HCC HHS/HCC) Thor Win, DO [address] [place] [address] Phone: tel: fax: [facility] [address] [place] [address] Phone: tel: fax: Referral ID Status Reason Start Date Expiration Date V isits Requested Visits Authorized [id number] Closed Physical Therapy 01/06/2023 03/07/2023 12 12 Encounter Details Date Type Department Care Team (Late st Contact Info) Description 01/06/2023 6:00 PM JOY OPERATOR Office Visit [facility] [address] [place] [address] Penny Gould, PT [address] [place] [address] Above Knee Amputation Social History Tobacco Use [...] Coronavirus/COVID-19? No / Unsure 01/06/2023 6:14 PM JOY OPERATOR documented as of this encounter Functional Status [...] Krishnamurthy RN Active documented in this encounter Patient Instructions * Patient Instructions* Penny Gould, PT - 01/06/2023 6:00 PM JOY OPERATOR Access Code: [email or web address] URL: [email or web address] Date: 01/06/2023 Prepared by: Penny Gould Exercises Sidelying Hip Abduction (AKA) - 1 x daily - 5 x weekly - 2 sets - 10 reps Supine Single Leg Bridge with Sound Leg (AKA) - 1 x daily - 5 x weekly - 2 sets - 10 reps Modified Felipe Stretch (Mirrored) - 2 x daily - 7 x weekly - 1 sets - 4 reps - 60 hold OPERATOR documented in this encounter Progress Notes * Penny Gould PT - 01/06/2023 6:00 PM CST Physical Therapy Evaluation: Date: 01/06/2023 Patient Name: Gay Canales : 1990 Diagnosis: The primary encounter diagnosis was Hx of AKA (above knee amputation), left (CMS/HCC). Adiagnosis of Weakness was also pertinent to this visit. AMB PT SUBJECTIVE EVAL: History of Present Illness: Mechanism of injury: Chief complaint: Erik ATWOOD on 12/05/22. Went to acute rehab and was discharged on 12/29/22. Worked with arm weights at rehab and now at home and ankle weights. [place] wheelchair push-ups. Did some standing in parallel bars for up to 4 minutes. Worked on transfers. Is now Min-mod assist for transfers from wheelchair to bed. Able to perform bed mobility without assistance. Has some phantom pain. No pain at incision. Has wound care appointment and maybe will get wili removed. Has family therapist sock. R heel wound has heeled is no longer being followed by woundcare. Pain scale: 0 Past medical history: see intake sheet Assistive device: w/c, commode Stairs in home: able to stay on main level Goals for therapy: get stronger Objective Static Posture Comments MMT: UE: grossly 4+/5 B LE: Hip flexion: 4-/5 L Hip extension: partially able to perform a single leg bridge R Hip IR/ER: 4/5 R Knee extension: 4+/5 R Knee flexion: 4/5 R Ankle DF: 4/5 R ROM: L hip extension: 5 past neutral TRANSFERS: Stand pivot to right with min-mod assist Able to director of finance // bars with BUE support CGA. Able to stand and balance with UE support, unable to perform without UE support. Able to perform supine<>sit without assist. SEATED BALANCE: good Therapist wore medical grade mask throughout session;Patient wore mask throughout session ?? NEURO SCREEN Light touch ? Amputee Mobility Predictor??Scoring Form?? 1. Sitting balance: sit forward in a chair with arms folded across chest for 60s. Score 1 2. Sitting reach: reach forward and grasp the ruler. (Teagan holds ruler 12in beyond extended arms midline to the sternum.)??Score 2 3. Chair to chair transfer: 2 chairs at 90. Pt may choose direction and use their upper extremities??Score 0 4. Arises from a chair: ask??pt??to fold arms across chest and stand. If unable, use arms or assistive device.??Score 1 5. Attempts to arise from a chair (stopwatch ready): if attempt in no. 4was without arms then ignore and allow another attempt without penalty.??Score 0 6. Immediate standing balance (first 5s): begin timing immediately.??Score 1 7. Standing balance (30s) (stopwatch ready): Score 1 8: NA no prosthetic 9. Standing reach: reach forward and grasp the??ruler.(Teagan holds ruler 12in beyond extended arm(s) midline to the sternum.): Score 1 10. Nudge test (subject at maximum position #7): with feet as close together as possible, examiner pushes firmly on subject's sternum with palm of hand 3 times (toes should rise).??Score 0 11. Eyes closed (at maximum position #7): if support is required grade as unsteady.??Score 0 12. Picking up objects off the floor (bean picker machine operator a pencil off the floor placed midline 12in in front of foot).?Score 0 13. Sitting down: ask??pt??to fold arms across chest and sit. If unable, use arm or assistive device.??Score 1 14. Initiation of gait (immediately after told to go ).??Score 0 15. Score 0 16. Step continuity.??Score 0 17. Turnin??turn??when returning to chair.??Score 0 18. Variable yesi: walk a distance of 12ft fast as safely as possible 4 times. (Speeds may vary from slow to fast and fast to slow, varying yesi.)??Score 0 ??19. Stepping over obstacle: place a movable box of 4in. in height in the walking path.??Score 0 20. Stairs (must have at least 2 steps): try to go up and down these stairs without holding on to the railing. Don't hesitate to permit??pt??to hold on to??rail. Safety first, if examiner feels that any risk in involved omit and score as 0.??Score 0 21. Assistive device selection: add points for the use of an assistive device if used for 2 or moreitems. If testing without prosthesis use of appropriate assistive device is mandatory.??Score 1 ? Total? K level = K1 ? Physical Therapy Certification Form- General Treatment Today: Initial Evaluation completed with patient education on evaluation findings and plan of care HEP instruction: sidelying abd, RLE bridge, hip flexor stretch Assessment Eval Complexity Personal Factor/Co-morbidities: Acuity, BMI, Diabetic Status, HTN, shortness of breath Examination of Body Systems Needing Addressed 4 or more (High) Balance or Coordination Deficits, Bed Mobility Deficits, Household Tasks Deficits, LE Deficits, Standing Deficits, Trunk Deficits, UE Deficits, Vitals Need Monitoring Clinical Presentation of Present Unstable (High) Recent AKA, vitals monitoring Clinical Decision Making High Timed Code Tx Minutes 5 Units 1 Total Tx time 45. 45 High Medical Diagnosis: L AKA Treatment Diagnosis: LE weakness, difficulty with transfers Patient demonstrated Good understanding of above education and HEP. Rehab Potential (good) Assessment: Gay Canales is a 32 year old female presenting to physical therapy s/p L AKA on 12/05/22. Functional deficits include requires w/c for transport, requires assist for transfers. Patient demonstrates objective findings including weakness, decreased standing tolerance, balance impairment . Patient is a good candidate for physical therapy to address these deficits to allow him/her to improve independence with transfers and mobility. Therapy Goals: (Goals to be met by Discharge) 1. Stand without UE support for 15 seconds or greater to demonstrate improved stability. 2. Pt will hop in // bars with BUE support x 36 feet with CGA or greater independence. 3. Pt will transfer from w/c to mat SBA or greater independence. 4. Increase RLE strength to 5/5 to improve ease with transfers. Patient to be seen for balance, flexibilty, gait, home exercise program, neuromuscular reeducation,ROM, strengthening. Next visit: review HEP and patient education. Standing balance in // bars, transfers, STS with UE support, LE strengthening, monitor BP Frequency 2 times per 6 week for 12 visits. Therapist Penny Gould PT Date: 01/06/23 Time: 12:45 PM Physician signature: Date: Time: Patient Name: Gay Canales : 1990 OPERATOR documented in this encounter Plan of Treatment Not on file documented as of this encounter Goals Goal Patient Goal Type Associated Problems Recent Progress Patient-Stated? Author Safety ? Patient/family will have appropriate support at home upon discharge Lifestyle Ashlee Rodriguez, RN documented as of this encounter Visit Diagnoses Diagnosis Hx of AKA (above knee amputation), left (CMS/HCC HHS/HCC)- Primary Weakness Other malaise and fatigue documented in this encounter Additional Health Concerns Infection Onset Date Last Indicated Resolved Time MRSA Comment:07/29/22 Nares (RG) 07/30/22 +MRSA Right leg 03/03/23 +MRSA Right leg 07/30/2022 03/03/2023 documented as of this encounter Care Teams Executive Coordinator Relationship Specialty Start Date End Date None, Provider, PCP - General 07/29/22 documented as of this encounter
--- OUTSIDE RECORDS SUMMARY | 2024-11-17 03:05 | XMS_ITS | Encounter Summary ---
Author Organization [facility] Address [address] [place] [address]. [place] [address] [place] [address] Care Team Providers Care Industrial Economics Professor Name Role Phone None, Provider Primary Care Provider Unavaila ble Encounter Details Date Type Department Care Team (Late st Contact Info) Description 03/17/2023 11:15 AM CDT - 03/17/2023 11:59 PM CDT Hospital Encounter [facility] [place], [place] [id number] Nora Garsia NP 1 [place], [place] [phone] Discharge Disposition: Home or Self Care (Routine [...] suspected to have Coronavirus/COVID-19? No / Unsure 03/17/2023 11:27 AM CDT documented as of this encounter [...] Apply topically daily. 30 g 2 03/06/2023 amoxicillin-clav ulanate (AUGMENTIN) 875-125 MG tablet Take 1 tablet (875 mg total) by mouth 2 (two) times daily for 10 days. 20 tablet 03/10/2023 3 documented as of this encounter Plan [...] documented as of this encounter Care Teams Industrial Economics Professor Relationship Specialty Start Date End Date None, Provider, PCP - General 07/29/22 documented as of this encounter
--- OUTSIDE RECORDS SUMMARY | 2024-11-17 03:05 | XMS_ITS | Encounter Summary ---
Author Organization [facility] Address [facility] [place] [address] [place] [address] Care Team Providers Care Dumper Name Role Phone None, Provider Primary Care Provider Unavaila ble Encounter Details Date Type Department Care Team (Latest Contact Info) Description 01/20/2023 Travel Social History Tobacco Use Types Packs/Day [...] documented as of this encounter Care Teams Dumper Relationship Specialty Start Date End Date None, Provider, PCP - General 07/29/22 documented as of this encounter
--- OUTSIDE RECORDS SUMMARY | 2024-11-17 03:05 | XMS_ITS | Encounter Summary ---
Author Organization [facility] Address [facility] [place] [address] [place] [address] Care Team Providers Care Psychiatric Aide Instructor Name Role Phone None, Provider Primary Care Provider Unavaila ble Encounter Details Date Type Department Care Team (Late st Contact Info) Description 03/07/2023 Orders Only [facility] [place], [place] [phone] Nora Garsia NP 1 [place] [address] Social History Tobacco Use Types [...] as of this encounter Care Teams Psychiatric Aide Instructor Relationship Specialty Start Date End Date None, Provider, PCP - General 07/29/22 documented as of this encounter
--- OUTSIDE RECORDS SUMMARY | 2024-11-17 03:05 | XMS_ITS | Encounter Summary ---
Author Organization [facility] Health Address [address] [place] [id number] Care Team Providers Care Polysomnography Tech Name Role Phone Unavailable Primary Care Provider Unavailabl e Encounter Details Date Type Department Care Team (Latest Contact Info) Description 08/21/2022 Travel Social History Tobacco Use Types Packs/Day [...] No 08/21/2022 documented as of this encounter Plan of Treatment Upcoming Encounters Date Type Department Care Team (Late st Contact Info) Description 11/22/2024 1:30 PM WORKERS' COMPENSATION CLAIMS SUPERVISOR Office Visit [facility] - Infectious Disease [address] [facility], [place] [address] Kash Ha MD [address] [place] [address] documented as of this encounter Visit Diagnoses Not on filedocumented in this encounter
--- OUTSIDE RECORDS SUMMARY | 2024-11-17 03:05 | XMS_ITS | Encounter Summary ---
Author Organization [facility] Address [address] [facility] [place] [address] Care Team Providers Care Disability Case Manager Name Role Phone Clinic, [facility] Primary Care Provider [phone] Reason for Visit * Reason Comments Diabetes Encounter Details Date Type Department Care Team (Latest Contact Info) Description 04/24/2010 9:00 AM CDT - 04/24/2010 9:22 AM CDT Hospital Encounter [facility] Pediatrics - Endocrinology [facility] [place] [address] Discharge Disposition: Home or Self Care Social History Tobacco Use Types Packs/Day Years Used Date Smoking Tobacco: Never Assessed Sex and Gender Information Value Date Recorded Sex Assigned at Not on file Gender Identity Not on file Sexual Orientation Not on file documented as of this encounter Discharge Instructions * Patient Instructions* Jimmy Pisano MD - 04/24/2010 10:54 AM CDT 1. Start taking the metformin extended release tablets, instead of the regular metformin. Take two each evening for two weeks. If no diarrhea or belly pain, go up to 4 tablets once nightly. 2. If she is still having diarrhea after 1-2 weeks, please call us at [phone]. 3. Check blood glucose once daily. 4, Return to see Dr. Ponce in 3 months. documented in this encounter Progress Notes * Lissette Marie RD/LD - 04/24/2010 3:37 PM CDT Diabetes Nutrition Care Plan Date: 04/24/2010 Weight: 141.069 kg (311 lb) Weight/Age Range: Greater than 97th Height: 167.3 cm (5' 5.87 ) Height/Length Range: 75th - 85th Body mass index is 50.40 kg/(m^2). BMI or Height/Weight Range: Greater than 97th Labs: Component Name 04/24/10 0952 HGBA1C 7.3* Medications: Current outpatient prescriptions Medication Sig Dispense Refill ??? metformin ER 24hr (GLUCOPHAGE XR) 500MG tablet Take 1000 mg by mouth daily with dinner. ??? metformin ER 24hr (GLUCOPHAGE XR) 500MG tablet Take by mouth daily with dinner. 4 tablets 120 5 Assessment: Gay Canales is a 19 y.o. female seen with mother for follow up nutrition diabetes management. 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 Pt is not working during the summer. Asked what she does during the day: sleep a lot and play on the computer . Will go to bed ~2:30 am and wakes @ 2:30pm. Mother does not allow her to go outdoors because neighborhood is not safe, though she will go to store for candy andregular soda. Will have three meals daily: Sandwiches, chips, burgers, fries; minimal fresh fruit and vegetables. Mother and pt stated they were motivated to change last time we discussed healthy eating, but unfortunately went back to high fat/ high sugar eating habits. Intervention: Long discussion with Gay the need for lifestyle changes, but she has to want to make these changes. Encouraged eliminating regular soda and sweets Mother to purchase low fat/ high fiber foods and encourage healthy eating Provided grocery list and menu ideas Mother to give list of chores for pt to accomplish during the day. Monitor: Improved A1C and BMI Compliance of above recommendations MILLIE Villeda CDE * Jimmy Pisano MD - 04/24/2010 10:38 AM CDT Gay Canales and her mother were seen in our Pediatric Endocrinology offices on 04/24/10. She is a19 Yrs 7 [place] girl who has had type 2 diabetes for 2 years. Since her last visit, he has had no new problems, but she has gained weight and A1c has increased. Oral Diabetic Therapy Metformin 500 m tablets every 7 PM Missed doses per week: 1. Blood Glucose Monitoring Checked 1 times/day by Pt, using a ?Accucheck Ivonne meter at supper time. Target Range: 80-150 mg/dl. Patient has meter No; patient has logbook Yes. I reviewed blood glucoses from meter/logbook over the past month, range 117-141 Hypoglycemia n/a Urine Ketone Monitoring: Yes. Meal Plan reviewed by Ms Marie (RD) Counts carbs: No. 3 meals/day; Is calorie-restricted: Yes. Interviewed by dietitian today: Yes. Complications of Diabetes none. Other Medical Diagnoses: obesity Other medications: none Review of systems General: normal sleeping Skin: normal ENT: normal Cardiovascular: normal Gastrointestinal: diarrhea 3 times a week -Mother unaware Genitourinary: had heavy, prolonged menses until 12/13, then none since Endocrine: no fatigue or temperature intolerance Social History: lives with mother, brother, and sister. Completed 10th grade, did [place] Physical Examination: BP 108/70 Ht 1.673 m (5' 5.87 ) Wt 141.069 kg (311 lb) LMP 12/04/2009 99.70% of growth percentile based on aoghph-flh-pfh. 74.42% of growth percentile based on dtperqq-zjh-tkg. Body mass index is 50.40 kg/(m^2). 99.50% of growth percentile based on BMI-for-age. General: obese Eyes: Normal fundi HEENT: Normal throat and TM's Thyroid not palpable Breasts TS 5; lungs clear; no murmur Abdomen obese, soft ne Dense acanthosis nigricans neck, axillae, breasts 1+ DTR with reinforcement Laboratory: Hemoglobin A1c 7.3%, TSH 3.298, prolactin 6.8 Creatinine 1.15 (note: was 0.98 04/20/09, 1.2 04/28/08, when u/a was normal.) Lipid profile: cholesterol 150, HDL cholesterol 33, LDL cholesterol 100, triglycerides 83 Assessment: 1. Diabetes Type: type 2 Control: poor control due to dietary non-compliance and suboptimal medication dose Complications: none, but has severe obesity, irregular menses 2. Borderline-elevated serum creatinine (stable) 3. Diarrhea, possibly representing metformin intolerance Plan: 1. Change to metformin ER 1000 mg nightly for two weeks, then 2000 mg nightly if no diarrhea 2. Check blood glucose twice daily 3. Dietary advice, as per Cynthia. 4. RTC 3 months documented in this encounter Plan of Treatment Upcoming Encounters Date Type Department Care Team (Late st Contact Info) Description 11/22/2024 1:30 PM HOSPITAL INTERNSHIP Office Visit [facility] - Infectious Disease [address] [place] [address], [facility] [place] [address] Kash Ha MD [address] [place] [address] documented as of this encounter Procedures Procedure Name Priority Date/Time Associated Diagnosis Comments PROLACTIN Routine 04/24/2010 11:03 AM CDT DM w/o Complication Type II (HCC) TSH Routine 04/24/2010 11:03 AM CDT DM w/o Complication Type II (HCC) HCG BLOOD QUALITATIVE Routine 04/24/2010 11:03 AM CDT DM w/o Complication Type II (HCC) HEMOGLOBIN A1C - POINT OF CARE (IP) Routine 04/24/2010 9:52 AM CDT DM w/o Complication Type II (HCC) CREATININE BLOOD Routine 04/24/2010 9:40 AM CDT DM w/o Complication Type II (HCC) LIPID PROFILE Routine 04/24/2010 9:40 AM CDT DM w/o Complication Type II (HCC) documented in this encounter Results * PROLACTIN (04/24/2010 11:03 AM CDT) Prolactin 6.8 SEE BELOW ng/ml [facility] Comment: See Interpretation For Normals Interpretation Prolactin [facility] Comment: ? Prolactin Normal Ranges ? ng/ml ? FEMALES ? Non- ??............ ??2.8 - 29.2 ?................ ??9.7 - 208.5 ? Postmenopausal ??.......... ??1.8 - 20.3 ? MALES ??..................... ??2.1 - 17.7 BLOOD SPECIMEN / Unknown 04/24/2010 11:03 AM CDT 04/24/2010 11:16 AM CDT Narrative Resulting Agency Comment Performed By [facility] [place] ? Laboratory ? [address] Jimmy Pisano MD LAB - CHEMISTRY DIVINA OLVERA [facility] * TSH (04/24/2010 11:03 AM CDT) TSH 3.289 0.490 - 4.670 mcIU/mL [facility] BLOOD SPECIMEN / Unknown 04/24/2010 11:03 AM CDT 04/24/2010 11:16 AM CDT Jimmy Pisano MD LAB - CHEMISTRY DIVINA OLVERA [facility] * HCG BLOOD QUALITATIVE (04/24/2010 11:03 AM CDT) HCG Qual Serum Negative [facility] BLOOD SPECIMEN / Unknown 04/24/2010 11:03 AM CDT 04/24/2010 11:16 AM CDT Jimmy Pisano MD LAB - CHEMISTRY DIVINA OLVERA [facility] * (ABNORMAL) HEMOGLOBIN A1C - POINT OF CARE (IP) (04/24/2010 9:52 AM CDT) Hemoglobin A1c POCT 7.3(A) 3.4 - 6.1 % [facility] POCT TESTING QC Verified yes Yes [facility] PO CT TESTING Blood specimen (specimen) BLOOD SPECIMEN / Unknown 04/24/2010 9:52 AM CDT Beatriz Bear APRN-CLINICAL LAB CLERK LAB - POINT OF C ARE ORDERABLES Performing Organization Address City/[facility]/ZIP Co de Phone Number [facility] POCT TESTING [address] [facility] [place] [address] * (ABNORMAL) LIPID PROFILE (04/24/2010 9:40 AM CDT) Cholesterol 150 < 200 mg/dl mg/dl [facility] Triglycerides 83 < 150 mg/dl mg/dl [facility] HDL Cholesterol 33(L) > 40 mg/dl mg/dl [facility] LDL Calculated 100(H) < 100 mg/dl mg/dl [facility] Chol HDL Ratio 4.5 [facility] Comment Lipid Reference Ranges provided by [place] [employer]. [facility] BLOOD SPECIMEN / Unknown 04/24/2010 9:40 AM CDT 04/24/2010 9:55 AM CDT Beatriz Bear JEWELRY CASTING MODEL MAKER APPRENTICE-CLINICAL LAB CLERK LAB - CHEMISTRY ORDERABLES [facility] * (ABNORMAL) CREATININE BLOOD (04/24/2010 9:40 AM CDT) Creatinine 1.15(H) 0.50 - 1.06 mg/dl [facility] BLOOD SPECIMEN / Unknown 04/24/2010 9:40 AM CDT 04/24/2010 9:54 AM CDT Beatriz Bear JEWELRY CASTING MODEL MAKER APPRENTICE-CLINICAL LAB CLERK LAB - CHEMISTRY ORDERABLES Performing Organization Address City/[facility]/ZIP Co de Phone Number [facility] documented in this encounter Visit Diagnoses Diagnosis Type II or unspecified type diabetes mellitus without mention of complication, not stated as uncontrolled (HCC) Type II or unspecified type diabetes mellitus without mention of complication, not stated as uncontrolled documented in this encounter Care Teams Disability Case Manager Relationship Specialty Start Date End Date [facility], [facility] [address] [place] [address] PCP - General 04/24/10 11/08/14 documented as of this encounter
--- OUTSIDE RECORDS SUMMARY | 2024-11-17 03:05 | XMS_ITS | Encounter Summary ---
Author Organization [facility] Address [address] [facility] [place] [address] Care Team Providers Care Cloth Opener Hand Name Role Phone Clinic, [facility] Primary Care Provider [phone] Encounter Details Date Type Department Care Team (Latest Contact Info) Description 04/24/2010 9:23 AM CDT - 04/24/2010 11:59 PM CDT Hospital Encounter [facility] Pediatrics - Diabetes [address] [address] [place], [place] UPDATE ADDRESS Diabetes Clinic Discharge Disposition: Home or Self Care Social History Tobacco Use Types Packs/Day Years Used Date Smoking Tobacco: Never Assessed Sex and Gender Information Value Date Recorded Sex Assigned at Not on file Gender Identity Not on file Sexual Orientation Not on file documented as of this encounter Medications at Time of Discharge Medication Sig Dispensed Refills Start Date End Date metformin ER 24hr (GLUCOPHAGE XR) 500MG tablet Take 1000 mg by mouth daily with dinner. 08/21/2022 metformin ER 24hr (GLUCOPHAGE XR) 500MG tabletIndications:Type II or unspecified type diabetes mellitus without mention of complication, not stated as uncontrolled (HCC) Take by mouth daily with dinner. 4 tablets 120 5 04/24/2010 08/21/2022 documented as of this encounter Miscellaneous Notes * Miscellaneous Scans - Document, Scanned - 01/18/2013 5:18 AM CDT * Miscellaneous Scans - Document, Scanned - 10/07/2011 11:56 AM CST POLISHER * Miscellaneous Scans - Document, Scanned - 06/13/2010 5:46 PM CDT * Miscellaneous Scans - Document, Scanned - 05/11/2010 3:55 PM CDT * Miscellaneous Scans - Document, Scanned - 04/24/2010 12:00 AM CDT * Miscellaneous Scans - Document, Scanned - 04/24/2010 12:00 AM CDT documented in this encounter Plan of Treatment Upcoming Encounters Date Type Department Care Team (Late st Contact Info) Description 11/22/2024 1:30 PM LENS POLISHER Office Visit [facility] - Infectious Disease [address] [place] [address], [place] [address] Kash Ha MD [address] [place] [address] documented as of this encounter Visit Diagnoses Not on filedocumented in this encounter Care Teams Cloth Opener Hand Relationship Specialty Start Date End Date [facility], [facility] [address] [place] [address] PCP - General 04/24/10 11/08/14 documented as of this encounter
--- OUTSIDE RECORDS SUMMARY | 2024-11-17 03:05 | XMS_ITS | Encounter Summary ---
Author Organization [facility] Address [address] [place] [address]. [place] [address] [place] [address] Care Team Providers Care Ambulance Driver Paramedic Name Role Phone None, Provider Primary Care Provider Unavaila ble Encounter Details Date Type Department Care Team (Late st Contact Info) Description 03/24/2023 2:00 PM CDT - 03/24/2023 11:59 PM CDT Hospital Encounter [facility] [place], [place] [id number] Nora Garsia NP 1 [place], [place] [phone] Discharge Disposition: Home or Self Care (Routine [...] suspected to have Coronavirus/COVID-19? No / Unsure 03/24/2023 2:09 PM CDT documented as of this encounter [...] Apply topically daily. 30 g 2 03/06/2023 mupirocin (BACTROBAN) 2 % ointment Apply topically daily. 30 g 2 03/24/2023 documented as of this encounter Plan of [...] documented as of this encounter Care Teams Ambulance Driver Paramedic Relationship Specialty Start Date End Date None, Provider, PCP - General 07/29/22 documented as of this encounter
--- OUTSIDE RECORDS SUMMARY | 2024-11-17 03:05 | XMS_ITS | Encounter Summary ---
Author Organization [facility] Address [facility] [facility] [place] [address] [place] [address] Care Team Providers Care Grainer Machine Name Role Phone None, Provider Primary Care Provider Unavaila ble Reason for Visit * Reason Onset Date Comments TCM 08/07/2022 Encounter Details Date Type Department Care Team (Late st Contact Info) Description 08/07/2022 Telephone [facility]ial[facility] [place] - [address] [address] Francesca Salmon MD [address] [place] [address] [place] [address] TCM Social History Tobacco Use Types Packs/Day Years [...] Coronavirus/COVID-19? No / Unsure 01/08/2023 1:31 PM CREATIVE DIRECTOR documented as of this encounter Functional Status [...] documented in this encounter Progress Notes * King Nunes CMA - 08/09/2022 9:03 AM CDT Spoke with patient she states she is seeing a different PCP Friday and asked I cancel her 08/[address] Salmon. * King Nunes CMA - 08/08/2022 9:23 AM CDT Number not accepting calls at this time, attempted to reach patient to get her in sooner. * Dat Murillo - 08/07/2022 3:[address] Garcia with [facility] called to schedule a TCM for this patient with Dr. Salmon. Patient is being discharged today. I tried nurse line but not available. I scheduled the TCM for 08/27 at her requestbut also let her know will get a message to your office about scheduling within 7-10 days. documented in this encounter Plan of Treatment [...] documented as of this encounter Care Teams Grainer Machine Relationship Specialty Start Date End Date None, Provider, PCP - General 07/29/22 documented as of this encounter
--- OUTSIDE RECORDS SUMMARY | 2024-11-17 03:05 | XMS_ITS | Encounter Summary ---
Author Organization [facility] Address [facility] [place] [address] [place] [address] Care Team Providers Care Road Gang Supervisor Name Role Phone None, Provider Primary Care Provider Unavaila ble Encounter Details Date Type Department Care Team (Latest Contact Info) Description 03/24/2023 Travel Social History Tobacco Use Types Packs/Day [...] documented as of this encounter Care Teams Road Gang Supervisor Relationship Specialty Start Date End Date None, Provider, PCP - General 07/29/22 documented as of this encounter
--- OUTSIDE RECORDS SUMMARY | 2024-11-17 03:05 | XMS_ITS | Encounter Summary ---
Author Organization [facility] Address [facility] [facility] [place] [address] [place] [address] Care Team Providers Care Chaser Helper Name Role Phone None, Provider Primary Care Provider Unavaila ble Encounter Details Date Type Department Care Team (Late st Contact Info) Description 03/10/2023 Orders Only [facility] [place], [place] [phone] Nora Garsia NP 1 [place] [address] Social History Tobacco Use Types [...] Assessment Author Status No 07/30/2022 12:00 AM Branidn Gandhi RN Active * Because of a [...] documented as of this encounter Care Teams Chaser Helper Relationship Specialty Start Date End Date None, Provider, PCP - General 07/29/22 documented as of this encounter
--- OUTSIDE RECORDS SUMMARY | 2024-11-17 03:05 | XMS_ITS | Encounter Summary ---
Author Organization [facility] Address [facility] [place] [address] [place] [address] Care Team Providers Care Gear Changer Name Role Phone None, Provider Primary Care Provider Unavaila ble Encounter Details Date Type Department Care Team (Latest Contact Info) Description 01/08/2023 Travel Social History Tobacco Use Types Packs/Day [...] Coronavirus/COVID-19? No / Unsure 01/08/2023 1:31 PM FIREBRICK LAYER documented as of this encounter Functional Status [...] documented as of this encounter Care Teams Gear Changer Relationship Specialty Start Date End Date None, Provider, PCP - General 07/29/22 documented as of this encounter
--- OUTSIDE RECORDS SUMMARY | 2024-11-17 03:05 | XMS_ITS | Encounter Summary ---
Author Organization [facility] Address [facility]ly [facility] [place] [address] [place] [address] Care Team Providers Care Silk Weaver Name Role Phone None, Provider Primary Care Provider Unavaila ble Encounter Details Date Type Department Care Team (Late st Contact Info) Description 01/02/2023 12:45 PM MELT HOUSE SUPERVISOR - 01/02/2023 2:55 PM MELT HOUSE SUPERVISOR Hospital Encounter [facility] [place] [address] Nora Garsia NP 1 [place] [address] Discharge Disposition: Home or Self Care (Routine [...] documented as of this encounter Results * XR FEMUR LT 2V (01/02/2023 3:26 PM MELT HOUSE SUPERVISOR) Anatomical Region Laterality Modality Femur Radiographic Nissa ging 01/03/2023 2:41 AM MELT HOUSE SUPERVISOR Impressions 01/03/2023 2:42 AM MELT HOUSE SUPERVISOR IMPRESSION: 1. ??No radiographic findings to suggest osteomyelitis Referred By: ?? Interpreted By: Tyrel Yeung MD, 01/03/2023 2:41 AM Narrative 01/03/2023 2:42 AM MELT HOUSE SUPERVISOR Examination: 2 views left femur Exam Date/Time: 01/02/2023 3:26 PM Reason For Exam: ??Non-healing surgical site with history of necrotizing fasciitis; suspicion of osteomyelits ?? 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 ??Multiple skin wili noted. ??Heterogeneous calcification deposits surrounding the distal remaining femur. ??Findings compatible with soft tissue injury from postsurgical changes. ??There are no cortical erosions or evidence of periosteal elevation to suggest osteomyelitis. Procedure Note Tyrel Yeung MD - 01/03/2023 Examination: 2 views left femur Exam Date/Time: 01/02/2023 3:26 PM Reason For Exam: Non-healing surgical site with history of necrotizingfasciitis; suspicion of osteomyelits Comparison: None Technique: AP and lateral radiographs of the left femur were obtained Findings: Postsurgical changes of distal amputation of the lower leg abovethe knee. Multiple skin wili noted. Heterogeneous calcificationdeposits surrounding the distal remaining femur. Findings compatible withsoft tissue injury from postsurgical changes. There are no corticalerosions or evidence of periosteal elevation to suggest osteomyelitis. IMPRESSION: 1. No radiographic findings to suggest osteomyelitis Referred By: Interpreted By: Tyrel Yeung MD, 01/03/2023 2:41 AM Nora Garsia NP GENERAL IMAGING Final Res ult * (ABNORMAL) CULTURE, WOUND, W/GRAM STAIN (01/02/2023 2:10 PM MELT HOUSE SUPERVISOR) SPEC DESCRIPTION LEG,LEFT 01/02/2023 3:13 PM [facility] SPECIAL REQUESTS NO SPECIAL REQUEST 01/02/2023 3:13 PM [facility] GRAM STAIN RESULT NO WHITE BLOOD CELLS SEEN 01/03/2023 8:46 AM [facility] GRAM STAIN RESULT NO ORGANISMS SEEN 01/03/2023 8:46 AM [facility] CULTURE RESULT LIGHT GROWTH OF PROTEUS MIRABILIS (A) 01/05/2023 9:36 AM [facility] CULTURE RESULT SPARSE GROWTH OF ACINETOBACTER BAUMANNII COMPLEX (A) 01/05/2023 9:36 AM [facility] CULTURE RESULT NOTE: WOUND AND TISSUE CULTURES ARE ROUTINELY SCREENED FOR AEROBIC ORGANISMS ONLY. 01/05/2023 9:36 AM [facility] STRUCTURE OF LEFT LOWER LIMB / Unknown 01/02/2023 2:10 PM MELT HOUSE SUPERVISOR 01/02/2023 3:13 PM MELT HOUSE SUPERVISOR Narrative Organism Antibiotic Method Susceptibility Proteus mirabilis AMPICILLIN CHARLES (VITEK) <=2: Sensitive Proteus mirabilis AMPICILLIN/SULBACTAM CHARLES (VITEK) <=2: Sensitive Proteus mirabilis CEFTRIAXONE CHARLES (VITEK) <=1: Sensitive Proteus mirabilis CEFTAZIDIME CHARLES (VITEK) <=1: Sensitive Proteus mirabilis CEFAZOLIN CHARLES (VITEK) <=4: Sensitive Proteus mirabilis GENTAMICIN CHARLES (VITEK) <=1: Sensitive Proteus mirabilis LEVOFLOXACIN CHARLES (VITEK) <=0.12: Sensitive Proteus mirabilis PIPRACIL/TAZO CHARLES (VITEK) <=4: Sensitive Proteus mirabilis TRIMETH-SULFAMETH. CHARLES (VITEK) <=20: Sensitive Acinetobacter baumannii complex AMPICILLIN/SULBACTAM M IC (VITEK) <=2: Sensitive Acinetobacter baumannii complex CEFEPIME CHARLES (MITCHEL K) 8: Sensitive Acinetobacter baumannii complex CEFTRIAXONE CHARLES (MITCHEL K) 16: Intermediate Comment:INTERMEDIATE Acinetobacter baumannii complex CEFTAZIDIME CHARLES (MITCHEL K) 16: Intermediate Comment:INTERMEDIATE Acinetobacter baumannii complex GENTAMICIN CHARLES (MITCHEL K) <=1: Sensitive Acinetobacter baumannii complex LEVOFLOXACIN CHARLES (MITCHEL K) 2: Sensitive Acinetobacter baumannii complex MEROPENEM CHARLES (MITCHEL K) 0.5: Sensitive Acinetobacter baumannii complex PIPRACIL/TAZO CHARLES (VIT EK) >=128: Resistant Acinetobacter baumannii complex TRIMETH-SULFAMETH. CHARLES (VITEK) <=20: Sensitive Nora Garsia NP MICROBIOLOGY - GENERAL OR DERABLES Final Result [facility] [address] [place] [address], documented in this encounter Visit Diagnoses Diagnosis Disruption of surgical wound, initial encounter- Primary Acute hematogenous osteomyelitis of left femur ([facility]) Acute osteomyelitis, pelvic region and thigh Acute hematogenous osteomyelitis of left femur ([facility]) Acute osteomyelitis, pelvic region and thigh documented in this encounter Additional Health Concerns Infection Onset Date Last Indicated Resolved Time MRSA Comment:07/29/22 Nares (RG) 07/30/22 +MRSA Right leg 03/03/23 +MRSA Right leg 07/30/2022 03/03/2023 documented as of this encounter Care Teams Silk Weaver Relationship Specialty Start Date End Date None, Provider, PCP - General 07/29/22 documented as of this encounter
--- OUTSIDE RECORDS SUMMARY | 2024-11-17 03:05 | XMS_ITS | Encounter Summary ---
Author Organization [facility] Address [facility] [place] [address] [place] [address] Care Team Providers Care Bushel Girl Name Role Phone None, Provider Primary Care Provider Unavaila ble Encounter Details Date Type Department Care Team (Latest Contact Info) Description 02/03/2023 Travel Social History Tobacco Use Types Packs/Day [...] documented as of this encounter Care Teams Bushel Girl Relationship Specialty Start Date End Date None, Provider, PCP - General 07/29/22 documented as of this encounter
--- OUTSIDE RECORDS SUMMARY | 2024-11-17 03:05 | XMS_ITS | Encounter Summary ---
Author Organization [facility] Address [facility] [place] [address] [place] [address] Care Team Providers Care Sprinkler Irrigation Equipment Mechanic Name Role Phone None, Provider Primary Care Provider Unavaila ble Encounter Details Date Type Department Care Team (Latest Contact Info) Description 01/02/2023 Travel Social History Tobacco Use Types Packs/Day [...] Coronavirus/COVID-19? No / Unsure 01/02/2023 12:43 PM MACHINE SETTER documented as of this encounter Functional Status [...] documented as of this encounter Care Teams Sprinkler Irrigation Equipment Mechanic Relationship Specialty Start Date End Date None, Provider, PCP - General 07/29/22 documented as of this encounter
--- OUTSIDE RECORDS SUMMARY | 2024-11-17 03:05 | XMS_ITS | Encounter Summary ---
Author Organization [facility] Address [facility] [place] [address] [place] [address] Care Team Providers Care Cathode Ray Tube Assembler Name Role Phone None, Provider MD Primary Care Provider Unavaila ble Reason for Visit * Reason Onset Date Comments Called To Cancel Office Appt. 01/13/2023 Encounter Details Date Type Department Care Team (Late st Contact Info) Description 01/13/2023 Telephone [facility] Physical Therapy [address] [place] [phone] Penny Gould, PT [address] [place], [place] [phone] Called To Cancel Office Appt. Social History [...] Coronavirus/COVID-19? No / Unsure 01/08/2023 1:31 PM GLOBAL COMPENSATION DIRECTOR documented as of this encounter Functional [...] Progress Notes * Penny Gould, PT - 01/13/2023 5:21 PM CDT Called the patient and left a voicemail regarding no show for today's appt. Left a voicemail reminding the patient of upcoming appointment on 01/15 at 4:30pm. documented in this encounter Plan of Treatment [...] documented as of this encounter Care Teams Cathode Ray Tube Assembler Relationship Specialty Start Date End Date None, Provider, PCP - General 07/29/22 documented as of this encounter
--- OUTSIDE RECORDS SUMMARY | 2024-11-17 03:05 | XMS_ITS | Encounter Summary ---
Author Organization [facility] Address [address] [place] [address] Care Team Providers Care Specification Manager Name Role Phone Clinic, [facility] Primary Care Provider [phone] Encounter Details Date Type Department Care Team (Late st Contact Info) Description 07/30/2010 Orders Only [facility] Pediatrics - Endocrinology [address] [place] [address] Kim Ponce MD ERRONEOUS ENCOUNTER--DISREGARD Social History Tobacco Use Types Packs/Day Years Used Date Smoking Tobacco: Never Assessed Sex and Gender Information Value Date Recorded Sex Assigned at Not on file Gender Identity Not on file Sexual Orientation Not on file documented as of this encounter Plan of Treatment Upcoming Encounters Date Type Department Care Team (Late st Contact Info) Description 11/22/2024 1:30 PM CARROT HARVESTER Office Visit [facility] - Infectious Disease [address] [place] [address], [place] [id number] Kash Ha MD [address] [place] [address] documented as of this encounter Visit Diagnoses Diagnosis ERRONEOUS ENCOUNTER--DISREGARD- Primary documented in this encounter Care Teams Specification Manager Relationship Specialty Start Date End Date Clinic, [facility] [address] [place] [address] 332- PCP - General 04/24/10 11/08/14 documented as of this encounter
--- OUTSIDE RECORDS SUMMARY | 2024-11-17 03:05 | XMS_ITS | Encounter Summary ---
Author Organization [facility] Address [address] [place] [address]. [place] [address] [place] [address] Care Team Providers Care Marketing Analytics Lead Name Role Phone None, Provider Primary Care Provider Unavaila ble Encounter Details Date Type Department Care Team (Late st Contact Info) Description 03/03/2023 6:22 PM CDT - 03/03/2023 11:59 PM CDT Hospital Encounter [facility] [address] [place], [place] [id number] Nora Garsia NP 1 [place], [place] [phone] Discharge Disposition: Home or Self Care (Routine [...] Procedure Name Priority Date/Time Associated Diagnosis Comments HC BODY FLUID CULTURE Routine 03/03/2023 4:02 PM CDT Non-pressure chronic ulcer of right calf with fat layer exposed (CMS/HCC HHS/HCC) documented in this encounter Results * (ABNORMAL) CULTURE, WOUND, W/GRAM STAIN (03/03/2023 4:02 PM CDT) SPEC DESCRIPTION LEG,RIGHT 03/05/2023 6:23 PM CDT [facility] SPECIAL REQUESTS NO SPECIAL REQUEST 03/05/2023 6:23 PM CDT [facility] GRAM STAIN RESULT NO WHITE BLOOD CELLS SEEN 03/06/2023 1:25 PM CDT [facility] GRAM STAIN RESULT FEW GRAM POSITIVE COCCI 03/06/2023 1:25 PM CDT [facility] CULTURE RESULT HEAVY GROWTH OF STREPTOCOCCI, BETA HEMOLYTIC GROUP B SUSCEPTIBILTY NOT ROUTINELY PERFORMED. SAVING ISOLATE FOR 5 DAYS. CONTACT MICROBIOLOGY DEPARTMENT IF FURTHER WORKUP IS INDICATED. (A) 03/08/2023 9:21 AM CDT [facility] CULTURE RESULT HEAVY GROWTH OF METHICILLIN RESISTANT STAPHYLOCOCCUS AUREUS FOLLOW ISOLATION PROTOCOL. (AA) 03/08/2023 9:21 AM T [facility] CULTURE RESULT NOTE: WOUND AND TISSUE CULTURES ARE ROUTINELY SCREENED FOR AEROBIC ORGANISMS ONLY. 03/08/2023 9:21 AM T [facility] STRUCTURE OF RIGHT LOWER LIMB / [...] staphylococcus aureus VANCOMYCIN CHARLES (VITEK) <=0.5: Sensitive Nora Garsia NP MICROBIOLOGY - GENERAL OR DERABLES Final Result [facility] [address] [place] [address], documented in this encounter Visit Diagnoses Diagnosis Non-pressure chronic ulcer of right calf with fat layer exposed (CMS/HCC HHS/HCC) Ulcer of calf documented in this encounter Additional Health Concerns Infection Onset Date Last Indicated Resolved Time MRSA Comment:07/29/22 Nares (RG) 07/30/22 +MRSA Right leg 03/03/23 +MRSA Right leg 07/30/2022 03/03/2023 documented as of this encounter Care Teams Marketing Analytics Lead Relationship Specialty Start Date End Date None, Provider, PCP - General 07/29/22 documented as of this encounter
--- OUTSIDE RECORDS SUMMARY | 2024-11-17 03:05 | XMS_ITS | Encounter Summary ---
Author Organization [facility] Address [facility] [place] [address] [place] [address] Care Team Providers Care Experimental Plastics Fabricator Name Role Phone None, Provider MD Primary Care Provider Unavaila ble Reason for Visit * Reason Comments Above Knee Amputation * Physical Therapy (Routine) - Closed Specialty Diagnoses / Procedures Referred By Jany martinez Referred To Contact [facility] Physical Therapy Diagnoses Acquired absence of left leg above knee ([facility]/HCC HHS/HCC) Encounter for orthopedic aftercare following surgical amputation Other abnormalities of gait and mobility Phantom limb syndrome with pain (CMS/HCC HHS/HCC) Unspecified diastolic (congestive) heart failure (CMS/HCC HHS/HCC) Hypertensive heart disease with heart failure (CMS/HCC HHS/HCC) Pressure ulcer of right heel, unstageable (CMS/HCC HHS/HCC) Pressure ulcer of left buttock, stage 3 (CMS/HCC HHS/HCC) Thor Win, DO [address] [place] [address] Phone: tel: fax: [facility] Physical Therapy [address] [place] [address] Phone: tel: fax: Referral ID Status Reason Start Date Expiration Date V isits Requested Visits Authorized [id number] Closed Physical Therapy 01/06/2023 03/07/2023 12 12 Encounter Details Date Type Department Care Team (Late st Contact Info) Description 02/03/2023 12:45 PM CDT Office Visit [facility] Physical Therapy [address] [place] [address] Penny Gould, PT [address] [place] [address] Thor Win, DO [address] [place] [address] Jed Valdes, PICKING TECH Above Knee Amputation Social History Tobacco Use [...] documented in this encounter Progress Notes * Jed Valdes, PICKING TECH - 02/03/2023 12:45 PM CDT Physical Therapy Visit Note: Patient Name: Gay Canales Diagnosis: Hx of aka (above knee amputation), left (cms/hcc) (primary encounter diagnosis) Weakness SUBJECTIVE Therapy Visit Treatment Day: 4 Total Approved Visits: 12 Authorization Expiration Date: 03/07/2023 Therapy Plan of Care: RLE endurance and stability, L hip strengthening Diagnosis: L aka Referring Provider: Audelia Ingram MD Visit: Nothing scheduled as of 01/20/23 Subjective Note: Patient reports that she had injections into Bilat Eyes on January 30. Patient states that her eyes are still bothering her today. Response to prior treatment: Good - Little Sore Compliance to Home Program: Yes - Per Patient 1x/daily Functional changes since last visit: Eaiser with Sit<->Stand Reported Falls since last visit: None Pain Current Location of Pain: No Pain Current Pain Level: 0/10 OBJECTIVE Treatment provided today: Therapeutic Exercise - 16371 Number of Minutes - 48459: 23 Exercise: Supine SLR 2 x 10 Reps Bilat (Therapist Assist on Right LE) Exercise: SL Hip Abd and hip ext with patient in Right SL 1 x 10 Reps Exercise: Supine SKTC on Right LE 2 x 10 Reps with Min assist Exercise: L hip flexor stretch in R sidelying 2 x 60 seconds Exercise: Supine GS 5(H) 2 x 10(H) Exercise: supine bride thighs on bolster 2 x 10 Patient/Family Education: Home exercise program, Body mechanics, Energy conservation strategies Other (Comments): Patient and patient's brother eduated on Static standing at kitchen sink Therapeutic Activities - 59743 Number of Minutes - 27954: 36 Intervention : Static Standing inside the // bars x 6 Min win CGA of 1 Intervention : Gait Training - Patient ambulated 6' x 3 Reps with turns with Bilat UE and hop technique with close standard chair follow inside the // bars. Intervention : W/C<->Mat with stand pivot transfer and min assist of one x 2 Reps Intervention : Sit<->stand from W/C with min assist of one inside the // bars x 5 Reps Intervention : standing in // bars with L hip abd/ext x 10 Reps for standing endurance Other (Comments): The above activities were done to improve tolerance to functional activites and ADL's, rest breaks between each rep Education Was Education Provided: Yes Topic: Patient educated on proper technique for hopping with hand placement and push off. Patient also educated on proper turning technique to decrease chance of falling. Recipient: Patient, Caregiver, Other (Comments) (Patient's Brother) Method: Demonstration, Verbal, Return Demonstration Response: Demonstrates adequately, Verbalized understanding, Asked questions Barriers: None ASSESSMENT Assessment Note: Patient with good tolerance to exercises and gait on this date, needing some encouragement tokeep pushing. See above for patient education on turing and hopping. Patient and borther also educated on static standing at kitchen sick to increase standing tolerance. Patient was also educated on local prosthetics companies. Response to Treatment : Good - Fatigued at end of treatment. PLAN Plan Next Visit Plan: Next visit continue as above, check compliance with static standing at home. Total Time Total Time in Minutes: 59 Timed Code Treatment Minutes : 59 (Therapy Assistants ONLY) Supervising Therapist : Penny Gould PT documented in this encounter Plan of Treatment [...] documented as of this encounter Care Teams Experimental Plastics Fabricator Relationship Specialty Start Date End Date None, Provider, PCP - General 07/29/22 documented as of this encounter
--- OUTSIDE RECORDS SUMMARY | 2024-11-17 03:05 | XMS_ITS | Encounter Summary ---
Author Organization [facility] Address [address] [place] [address]. [place] [address] [place] [address] Care Team Providers Care Resort Host Name Role Phone None, Provider Primary Care Provider Unavaila ble Encounter Details Date Type Department Care Team (Late st Contact Info) Description 01/08/2023 1:30 PM PUBLIC RELATIONS PLAYER - 01/08/2023 11:59 PM PUBLIC RELATIONS PLAYER Hospital Encounter [facility] [address] [place], [place] [phone] Nora Garsia NP [address] [place], [place] [phone] Discharge Disposition: Home or Self Care (Routine [...] this encounter Medications at Time of Discharge levoFLOXacin (LEVAQUIN) 750 MG tablet Take 1 tablet (750 mg total) by mouth daily for 10 days. 10 tablet 01/06/2023 01/16/2023 documented as of this encounter Plan of [...] documented as of this encounter Care Teams Resort Host Relationship Specialty Start Date End Date None, Provider, PCP - General 07/29/22 documented as of this encounter
--- OUTSIDE RECORDS SUMMARY | 2024-11-17 03:05 | XMS_ITS | Encounter Summary ---
Author Organization [facility] Address [address] [place] [address]. [place] [address] [place] [address] Care Team Providers Care Customs And Border Protection Inspector Name Role Phone None, Provider Primary Care Provider Unavaila ble Encounter Details Date Type Department Care Team (Late st Contact Info) Description 01/02/2023 2:56 PM TUBE DRAW HELPER - 01/02/2023 3:10 PM TUBE DRAW HELPER Hospital Encounter [facility] Diagnostic Imaging [address] [place], [place] [phone] Nora Garsia NP 1 [place], [place] [phone] Discharge Disposition: Home or Self Care (Routine [...] Coronavirus/COVID-19? No / Unsure 01/02/2023 12:43 PM TUBE DRAW HELPER documented as of this encounter Functional Status [...] Procedure Name Priority Date/Time Associated Diagnosis Comments XR FEMUR LT 2V Routine 01/02/2023 3:26 PM TUBE DRAW HELPER Acute hematogenous osteomyelitis of left femur ([facility]) documented in this encounter Results * XR FEMUR LT 2V (01/02/2023 3:26 PM TUBE DRAW HELPER) Anatomical Region Laterality Modality Femur Radiographic Nissa ging 01/03/2023 2:41 AM TUBE DRAW HELPER Impressions 01/03/2023 2:42 AM TUBE DRAW HELPER IMPRESSION: 1. ??No radiographic findings to suggest osteomyelitis Referred By: ?? Interpreted By: Tyrel Yeung MD, 01/03/2023 2:41 AM Narrative 01/03/2023 2:42 AM TUBE DRAW HELPER Examination: 2 views left femur Exam Date/Time: [...] Garsia NP GENERAL IMAGING Final Res ult documented in this encounter Visit Diagnoses Diagnosis Acute hematogenous osteomyelitis of left femur ([facility]) Acute osteomyelitis, pelvic region and thigh documented in this encounter Additional Health Concerns Infection Onset Date Last Indicated Resolved Time MRSA Comment:07/29/22 Nares (RG) 07/30/22 +MRSA Right leg 03/03/23 +MRSA Right leg 07/30/2022 03/03/2023 documented as of this encounter Care Teams Customs And Border Protection Inspector Relationship Specialty Start Date End Date None, Provider, PCP - General 07/29/22 documented as of this encounter
--- OUTSIDE RECORDS SUMMARY | 2024-11-17 03:05 | XMS_ITS | Encounter Summary ---
Author Organization [facility] Address [facility] [place] [address] [place] [address] Care Team Providers Care International Bank Manager Name Role Phone None, Provider MD Primary Care Provider Unavaila ble Reason for Visit * Reason Comments Above Knee Amputation * Physical Therapy (Routine) - Closed Specialty Diagnoses / Procedures Referred By Jany martinez Referred To Contact [facility] Physical Therapy Diagnoses Acquired absence of left leg above knee ([facility]/HCC HHS/HCC) Encounter for orthopedic aftercare following surgical amputation Other abnormalities of gait and mobility Phantom limb syndrome with pain (CMS/HCC HHS/HCC) Unspecified diastolic (congestive) heart failure (CMS/HCC HHS/HCC) Hypertensive heart disease with heart failure (CMS/HCC HHS/HCC) Pressure ulcer of right heel, unstageable (CMS/HCC HHS/HCC) Pressure ulcer of left buttock, stage 3 (CMS/HCC HHS/HCC) Thor Win, DO [address] [place] [address] Phone: tel: fax: [facility] [address] [place] [address] Phone: tel: fax: Referral ID Status Reason Start Date Expiration Date V isits Requested Visits Authorized [id number] Closed Physical Therapy 01/06/2023 03/07/2023 12 12 Encounter Details Date Type Department Care Team (Late st Contact Info) Description 01/20/2023 12:45 PM CDT Office Visit [facility] [address] [place] [address] Penny Gould, PT [address] [facility] [place] [address] Jed Valdes, FUNCTIONAL MENTAL DISABILITY TEACHER Above Knee Amputation Social History Tobacco Use [...] this encounter Progress Notes * Jed Valdes, FUNCTIONAL MENTAL DISABILITY TEACHER - 01/20/2023 12:45 PM CDT Physical Therapy Visit Note: Patient Name: Gay Canales Diagnosis: Hx of aka (above knee amputation), left (cms/hcc) (primary encounter diagnosis) Weakness Personal Protective Equipment PPE Used During Visit: Therapist wore medical grade mask throughout session, Patient wore mask throughout session SUBJECTIVE Therapy Visit Treatment Day: 2 Total Approved Visits: 12 Authorization Expiration Date: 03/07/2023 Therapy Plan of Care: RLE endurance and stability, L hip strengthening Diagnosis: L aka Referring Provider: Audelia Ingram MD Visit: Nothing scheduled as of 01/20/23 Hand Dominance: Right Subjective Note: Patient arrived 15 min late to appointment. Patient denies compliance with HEP at this point.Patient reports improved indep with getting off the commode. Response to prior treatment: No - Per patient 2x/weekly Compliance to Home Program: No Issues Functional changes since last visit: Able to get up off the commode without assistance Reported Falls since last visit: None Medications changes since last visit : Will finish the antibotic today Pain Current Location of Pain: No Pain Current Pain Level: 0/10 OBJECTIVE Treatment provided today: Objective Observation: Patient presents with a very red and irritated left eye, states MD is aware Therapeutic Exercise - 42131 Number of Minutes - 25994: 25 Exercise: Supine SLR 2 x 10 Reps Bilat Exercise: SL Hip Abd with patient in Right SL 2 x 8 Reps Exercise: Right Single Leg Bridge 2 x 10 Reps Exercise: Seated LAQ with 2# 2 x 10 Reps on Right LE Exercise: Seated Resisted Knee Flexion with Red resistance band 2 x 10 Reps Right LE Exercise: Seated Hip Add with large towel roll 2 x 10 Reps Exercise: Seated Glute Sets 3(H) x 10 Reps Patient/Family Education: Home exercise program Other (Comments): Patient able to recall (3/3) exercises, re-educated the importance of HEP Compliance. Therapeutic Activities - 35480 Number of Minutes - 72855: 20 Intervention : Static Standing inside the // bars x 5 Min Intervention : Gait Training - Patient ambulated 4' x 2 Reps with Bilat UE and hop technique withclose W/C follow inside the // bars. Attempted to retro ambulate, patient unable to Intervention : W/C<->Mat with stand pivot transfer and min assist of one x 3 Reps Intervention : Sit<->stand from W/C with min assist of one inside the // bars x 5 Reps Other (Comments): The above activities were done to improve tolerance to functional activites and ADL's ASSESSMENT Assessment Note: Patient with good tolerance to exercises on this date with no c/o increased pain. Patient able to take her first steps today since the surgery. Patient and family were very involved in therapy session, and patient is motivated to progress. Patient unable to hop backwards on this date, but we will continue to focus on gait in future therapy appointments. Response to Treatment : Good - Fatigued at end of treatment. PLAN Plan Next Visit Plan: Next visit continue as above, progress standing tolerance and gait. Total Time Total Time in Minutes: 45 Timed Code Treatment Minutes : 45 (Therapy Assistants ONLY) Supervising Therapist : Penny [...] documented as of this encounter Care Teams International Bank Manager Relationship Specialty Start Date End Date None, Provider, PCP - General 07/29/22 documented as of this encounter
--- OUTSIDE RECORDS SUMMARY | 2024-11-17 03:05 | XMS_ITS | Encounter Summary ---
Author Organization [facility] Address [address] [place] [address]. [place] [address] [place] [address] Care Team Providers Care Spaghetti Machine Operator Name Role Phone None, Provider Primary Care Provider Unavaila ble Encounter Details Date Type Department Care Team (Late st Contact Info) Description 01/02/2023 3:11 PM REAL ESTATE APPRAISER - 01/02/2023 11:59 PM REAL ESTATE APPRAISER Hospital Encounter [facility] [place] [id number] Nora Garsia NP [address] [place], [place] [id number] Discharge Disposition: Home or Self Care (Routine [...] Coronavirus/COVID-19? No / Unsure 01/02/2023 12:43 PM REAL ESTATE APPRAISER documented as of this encounter Functional Status [...] Diagnosis Comments HC BODY FLUID CULTURE Routine 01/02/2023 2:10 PM REAL ESTATE APPRAISER Disruption of surgical wound, initial encounter documented in this encounter Results * (ABNORMAL) CULTURE, WOUND, W/GRAM STAIN (01/02/2023 2:10 PM REAL ESTATE APPRAISER) SPEC DESCRIPTION LEG,LEFT 01/02/2023 3:13 PM REAL ESTATE APPRAISER [facility] SPECIAL REQUESTS NO SPECIAL REQUEST 01/02/2023 3:13 PM REAL ESTATE APPRAISER [facility] GRAM STAIN RESULT NO WHITE BLOOD CELLS SEEN 01/03/2023 8:46 AM REAL ESTATE APPRAISER [facility] GRAM STAIN RESULT NO ORGANISMS SEEN 01/03/2023 8:46 AM REAL ESTATE APPRAISER [facility] CULTURE RESULT LIGHT GROWTH OF PROTEUS MIRABILIS (A) 01/05/2023 9:36 AM [facility] CULTURE RESULT SPARSE GROWTH OF ACINETOBACTER BAUMANNII COMPLEX (A) 01/05/2023 9:36 AM [facility] CULTURE RESULT NOTE: WOUND AND TISSUE CULTURES ARE ROUTINELY SCREENED FOR AEROBIC ORGANISMS ONLY. 01/05/2023 9:36 AM REAL ESTATE APPRAISER [facility] STRUCTURE OF LEFT LOWER LIMB / Unknown 01/02/2023 2:10 PM REAL ESTATE APPRAISER 01/02/2023 3:13 PM REAL ESTATE APPRAISER Narrative Organism Antibiotic Method Susceptibility Proteus mirabilis [...] baumannii complex TRIMETH-SULFAMETH. CHARLES (VITEK) <=20: Sensitive us Nora Garsia NP MICROBIOLOGY - GENERAL OR DERABLES Final Result [facility] [address] [place] [address], [place] [phone] documented in this encounter Visit Diagnoses Diagnosis Disruption of surgical wound, initial encounter documented in this encounter Additional Health Concerns Infection Onset Date Last Indicated Resolved Time MRSA Comment:07/29/22 Nares (RG) 07/30/22 +MRSA Right leg 03/03/23 +MRSA Right leg 07/30/2022 03/03/2023 documented as of this encounter Care Teams Spaghetti Machine Operator Relationship Specialty Start Date End Date None, Provider, PCP - General 07/29/22 documented as of this encounter
--- OUTSIDE RECORDS SUMMARY | 2024-11-17 03:05 | XMS_ITS | Encounter Summary ---
Author Organization [facility] Address [address] [place] [address]. [place] [address] [place] [address] Care Team Providers Care Shoe Designer Name Role Phone None, Provider Primary Care Provider Unavaila ble Encounter Details Date Type Department Care Team (Late st Contact Info) Description 01/06/2023 Orders Only [facility] [address] [place], [place] [id number] Nora Garsia NP [address] [place] [address] Social History Tobacco Use Types [...] Coronavirus/COVID-19? No / Unsure 01/02/2023 12:43 PM MONEY EXAMINER documented as of this encounter Functional Status [...] documented as of this encounter Care Teams Shoe Designer Relationship Specialty Start Date End Date None, Provider, PCP - General 07/29/22 documented as of this encounter
--- OUTSIDE RECORDS SUMMARY | 2024-11-17 03:05 | XMS_ITS ---
Author Organization [facility] Address [address] [place] [address] Care Team Providers Care Apartment Rental Agent Name Role Phone Cherise Patrick PA-C Primary Care Provider [phone] Transplant Episode Kidney Candidate [facility] ([place] [place]) [facility] Referred on 09/06/2024 Marked as Ineligible on 09/23/2024 Reason: Medical Contraindications Kidney CoordinatorFiona Schneider RN Phone: N/A Fax: N/A Email: N/A Scores Score Value Updated Exceptions/Reas ons CPRA Not available EPTS (Calc) 23 11/17/2024 [place] Organ Diagnosis Organ Primary Contributory Kidney Diabetes Mellitus - Type II Care Team Name Role Phone Fax Email Fiona Schneider RN Kidney Coordinator N/A N/A N/A Rhianna Tovar Weigher Operator N/A N/A N/A Lars Millan MD Referring Physician [phone] N/A Events Pre-Transplant Referred: 09/06/2024 Dialysis History Dialysis History Start End Type Comments Center 03/04/2024 In-center Hemodialysis [facility] Dialysis Center Information Center Phone Fax Address [facility] [phone] [address] [place] [phone]
--- OUTSIDE RECORDS SUMMARY | 2024-11-17 03:05 | XMS_ITS | Encounter Summary ---
Author Organization [facility] Address [facility] [place] [address] [place] [address] Care Team Providers Care Regional Retail Sales Manager Name Role Phone None, Provider Primary Care Provider Unavaila ble Encounter Details Date Type Department Care Team (Latest Contact Info) Description 03/17/2023 Travel Social History Tobacco Use Types Packs/Day [...] documented as of this encounter Care Teams Regional Retail Sales Manager Relationship Specialty Start Date End Date None, Provider, PCP - General 07/29/22 documented as of this encounter
--- OUTSIDE RECORDS SUMMARY | 2024-11-17 03:06 | XMS_ITS | Encounter Summary ---
Author Organization [facility] Address [address] [place] [address]. [place], [place] [address] [place] [id number] Care Team Providers Care Yarn Hauler Name Role Phone None, Provider Primary Care Provider Unavaila ble Encounter Details Date Type Department Care Team (Latest Contact Info) Description 07/29/2022 Travel Social History Tobacco Use Types Packs/Day [...] suspected to have Coronavirus/COVID-19? No / Unsure 07/29/2022 12:50 PM CDT documented as of this encounter Plan of Treatment Not on file documented as of this encounter Visit Diagnoses Not on filedocumented in this encounter Additional Health Concerns Infection Onset Date Last Indicated Resolved Time COVID-19 Rule Out 07/29/2022 07/29/2022 07/29/2022 2:06 PM CDT COVID-19 Rule Out 07/29/2022 07/30/2022 07/30/2022 9:08 AM CDT documented as of this encounter Care Teams Yarn Hauler Relationship Specialty Start Date End Date None, Provider, PCP - General 07/29/22 documented as of this encounter
--- OUTSIDE RECORDS SUMMARY | 2024-11-17 03:06 | XMS_ITS | Encounter Summary ---
Author Organization [facility] Address [address] 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 Name Role Phone None, Provider Primary Care Provider Unavaila ble Reason for Referral * Medication Prior Authorization - Pending Review Specialty Diagnoses / Procedures Referred By Contac t Referred To Contact Veena Truong MD [address] [place] [id number] Phone: tel: fax: Referral ID Status Reason Start Date Expiration Date V isits Requested Visits Authorized [id number] Pending Review 1 1 * (Routine) - Closed Specialty Diagnoses / Procedures Referred By Contac t Referred To Contact Procedures PT eval and Veena Nelson MD Phone: tel: fax: Referral ID Status Reason Start Date Expiration Date Visits Re quested Visits Authorized [id number] Closed 08/06/2022 08/06/2023 1 1 * (Routine) - Closed Specialty Diagnoses / Procedures Referred By Contac t Referred To Contact Procedures OT eval and treat Veena Truong MD Phone: tel: fax: Referral ID Status Reason Start Date Expiration Date Visits Re quested Visits Authorized [id number] Closed 08/06/2022 08/06/2023 1 1 * Procedure (Routine) - Closed Specialty Diagnoses / Procedures Referred By Contac t Referred To Contact Procedures Home O2 eval Home O2 eval Nae Sotelo MD Phone: tel: fax: Referral ID Status Reason Start Date Expiration Date Visits Re quested Visits Authorized [id number] Closed 08/04/2022 08/04/2023 1 1 * Imaging (Urgent) - Closed Specialty Diagnoses / Procedures Referred By Contac t Referred To Contact RADIOLOGY Procedures US RETROPERITONEAL LTD Nae Sotelo MD Phone: tel: fax: Referral ID Status Reason Start Date Expiration Date Visits Re quested Visits Authorized [id number] Closed 08/03/2022 08/03/2023 1 1 * Imaging (Routine) - Closed Specialty Diagnoses / Procedures Referred By Contac t Referred To Contact Procedures USV VAST TEAM PICC INSERT >5YR IR PICC PLC GREATER 5YR Tono Bejarano MD Phone: tel: fax: Referral ID Status Reason Start Date Expiration Date Visits Re quested Visits Authorized [id number] Closed 08/01/2022 08/01/2023 1 1 * Procedure (Routine) - Closed Specialty Diagnoses / Procedures Referred By Contac t Referred To Contact Procedures Bronchoscopy Tono Bejarano MD Phone: tel: fax: Referral ID Status Reason Start Date Expiration Date Visits Re quested Visits Authorized [id number] Closed 07/31/2022 07/31/2023 1 1 * Imaging (Urgent) - Closed Specialty Diagnoses / Procedures Referred By Contac t Referred To Contact RADIOLOGY Procedures US SUZANNE DUPLEX LOW EXT GATO Nae Wayne MD Phone: tel: fax: Referral ID Status Reason Start Date Expiration Date Visits Re quested Visits Authorized [id number] Closed 07/29/2022 07/29/2023 1 1 * Imaging (Routine) - Closed Specialty Diagnoses / Procedures Referred By Contac t Referred To Contact RADIOLOGY Procedures USE ECHOCARDIOGRAM Nae Wayne MD Phone: tel: fax: Referral ID Status Reason Start Date Expiration Date Visits Re quested Visits Authorized [id number] Closed 07/29/2022 07/29/2023 1 1 Reason for Visit * Auth/Cert Specialty Diagnoses / Procedures Referred By Contac t Referred To Contact Diagnoses Respiratory failure with hypoxia (CMS/HCC HHS/HCC) ACUTE HYPOXIC RESPIRATORY FAILURE PNA Respiratory failure with hypoxia (CMS/HCC) Procedures NONE Henok Dawkins MD [address] [address] Phone: tel: fax: Referral ID Status Reason Start Date Expiration Date Visits Re quested Visits Authorized [id number] 1 1 Encounter Details Date Type Department Care Team (Late st Contact Info) Description 07/29/2022 9:31 PM CDT - 08/07/2022 8:45 PM CDT Hospital Encounter [facility] 4[facility] [address] [place] [address] Henok Dawkins MD [address] [id number] Nae Wayne MD [address] [id number] Tono Bejarano MD 1 [place] [address] Nae Sotelo MD [address] [place] [address] Alexis Woodward MD [address] [place] [address] Veena Truong MD [address] [place] [id number] Discharge Disposition: Home or Self Care (Routine [...] Sign Reading Time Taken Comments Blood Pressure 146/78 08/07/2022 9:04 AM CDT Pulse 89 08/07/2022 9:04 AM CDT Temperature 36.9 ??C (98.4 ??F) 08/07/2022 9:04 AM CD T Respiratory Rate 18 08/07/2022 9:04 AM CDT Oxygen Saturation 98% 08/07/2022 9:04 AM CDT Inhaled Oxygen Concentration - - Weight 126.5 kg (278 lb 14.1 oz) 08/07/2022 5:00 AM CDT Height 170.2 cm (5' 7 ) 07/30/2022 12:0 0 AM CDT Body Mass Index 43.68 07/30/2022 12:00 AM CDT documented in this encounter Functional Status * Question Answer Date of Assessment Author Status Do you have serious difficulty walking or climbing stairs? No 07/30/2022 12:00 AM CDT Abelardo Krishnamurthy RN Active * Question Answer Date of Assessment Author Status Do you have difficulty dressing or bathing? No 07/30/2022 12:00 AM CDT Sandoval Krishnamurthy RN Active Because of a physical, mental, or emotional condition, do you have difficulty doing errands alone such as visiting a doctor's office or shopping? No 07/30/2022 12:00 AM BRODERICKT Abelardo Krishnamurthy RN Active * RETIRED Are you deaf or do [...] as of this encounter Mental Status * Question Answer Entry Date Author Status Because of a physical, mental, or emotional condition, do you have serious difficulty concentrating, remembering, or making decisions? No 07/30/2022 12:00 AM Brandin Gandhi RN Active * Because of a physical, mental, or emotional condition, do you have serious difficulty concentrating, remembering, or making decisions? Answer Entry Date Author Status No 07/30/2022 12:00 AM Brandin Gandhi RN Active documented in this encounter Discharge Summaries * Veena Truong MD - 08/07/2022 8:45 PM CDT Images from the original note were not included. Discharge Summary Leeroy Canales female 1990 Admit Date: 07/29/2022 9:31 PM Discharge date and time: 08/07/22 Admitting Physician: Nae Sotelo MD Primary Care Physician: Provider MD Cecy Discharge Physician: Veena Truong MD Admission Diagnosis: Respiratory failure with hypoxia (CMS/[facility]) [J96.91] Discharge Diagnosis: Acute hypoxic respiratory failure Multifocal pneumonia Acute diastolic CHF exacerbation BOBBY, unknown if she has underlying CKD Diabetes, uncontrolled Uncontrollable Hypertension Mixed JIAN/ACD Possible EDD Discharged Condition: Stable Code Status: Full Code Hospital Course: Patient seen and examined at bedside today and stable for discharge. She was not requiring any oxygen. She was educated about her blood pressure and blood sugar management and she voiced understanding. Review of Systems: 10 point ROS negative except for as stated above. Briefly discharge summary Patient is a 31 years old female, morbidly obese history of diabetes, has not been on insulin for the last 1 year because of no insurance admitted to ICU with acute respiratory failure. ??Initially required BiPAP with oxygen up to 10 to 15 L. CTA chest showed dense patchy opacities right greater than left, she was started on broad-spectrum antibiotics and Bronchoscopy was done 07/31/2022 (Cx-alphastrep 500 colonies per ml). ??Bounced back to the ICU the same day she was downgraded on 07/31/2022 because of increasing oxygen requirements. Stabilized and transferred to medical floor since 08/02/2022, on 2 to 4 L oxygen nasal cannula. TTE showed normal EF but concerning diastolic dysfunction so she was diuresed for CHF exacerbation. Patient will benefit from sleep study outpatient as there are concerns of EDD. She was also found to have iron deficiency anemia which needs to be followed up andinvestigate otpatient. ??Also had BOBBY with unknown baseline creatinine. She will benefit from follow up with nephrology outpatient. Her blood pressure was also very high so she was started on anti-hypertensive including coreg and amlodipine. ACEI/ARBs can be added as outpatient. Her blood sugars were managed with insulin, HbA1c 13%. Her lantus was BID initially but was switched to QHS at discharge. Pulmonology was consulted who transitioned to PO levofloxacin till 08/11 and recommended follow upCXR in 4-6 weeks. She will f/u w PCP and pulmonology. Home oxygen evaluation was performed and patient did not require any oxygen at ambulation or at rest. Patient was educated multiple times that she needs to follow up outpatient with PCP. CM tried to establish a PCP but no appointments available until 08/27. I called [facility] clinic and also sent a halo to Dr Francesca Salmon ([facility] outpatient f/u for unassigned patients today) to accommodate patient within a week of discharge. Consults: pulmonary/intensive care Significant Diagnostic Studies: Radiology Results (Last 30 days) 08/05/22 0546 XR CHEST PORTABLE Final result Impression: IMPRESSION: No remarkable change since yesterday's study. Ordered By: LEXUS DELUNA Interpreted By: Shane Lopez MD, 08/05/2022 7:35 AM 08/04/22 0637 XR CHEST PORTABLE Final result Impression: IMPRESSION: Redemonstrated bilateral pulmonary opacities, which likely has not changed significantly given the low lung volumes on this study. Ordered By: NAE SOTELO Interpreted By: Golden Lindsay MD, 08/04/2022 7:01 AM 08/03/22 1337 US RETROPERITONEAL LTD Final result Impression: Impression: No acute sonographic abnormality involving the kidneys or urinary bladder. Ordered By: NAE SOTELO Interpreted By: Bethanie Meyer MD, 08/03/2022 1:41 PM 08/02/22 0548 XR CHEST PORTABLE Final result Impression: IMPRESSION: 1. Mild interval improvement of groundglass and consolidative opacities in the right lung compatible with pneumonia. 2. Interval placement of right-sided peripherally inserted central catheter as above. The attending radiologist has reviewed the image(s) and agrees with the content of this report. Ordered By: TONO BEJARANO Interpreted By: Grey Cisneros DO, 08/02/2022 8:30 AM 08/01/22 1349 USV VAST TEAM PICC INSERT >5YR Final result 08/01/22 0628 XR CHEST PORTABLE Final result Impression: IMPRESSION: 1. No significant change from the prior exam with stable extensive pneumonia in the right lung and mild patchy interstitial pneumonitis in the left lung. 2. Stable small left pleural effusion versus chronic pleural thickening at the left costophrenic angle. Referred By: LIAT QUINONES Interpreted By: Monica De La O MD, 08/01/2022 6:51 AM 07/31/22 1450 XR CHEST PORTABLE Final result Impression: IMPRESSION: 1) Interval increase in diffuse pulmonary parenchymal opacifications involving the majority of the right lung. The left lung is free of consolidation. Ordered By: TONO BEJARANO Interpreted By: Srinivas Patrick MD, 07/31/2022 3:01 PM 07/30/22 1132 USE ECHOCARDIOGRAM Final result 07/30/22 1130 US SUZANNE DUPLEX LOW EXT GATO Final result Impression: IMPRESSION: 1. No evidence of deep venous thrombosis in the imaged bilateral lower extremities. Referred By: LIAT QUINONES Interpreted By: Monica De La O MD, 07/30/2022 9:30 PM 07/30/22 0527 XR CHEST PORTABLE Final result Impression: ======== IMPRESSION: ======== 1. Diffuse patchy pulmonary infiltrates bilaterally with right lower lung predominance. Small effusions not excluded. Ordered By: NAE WAYNE Interpreted By: Tyrel Yeung MD, 07/30/2022 7:48 AM 07/29/22 1519 CTA CHEST PE PROTOCOL Final result Impression: IMPRESSION: No pulmonary emboli identified in main pulmonary arteries or major pulmonary artery branches. No thoracic aortic aneurysm or dissection. Extensive diffuse infiltrates throughout the right lung and with more scattered, less dense infiltrate in the left lung. Findings discussed personally with Dr. Quinones with diagnostic considerations to include pneumonia including Covid 19 pneumonia and congestive heart failure. Subcutaneous edema also felt to be present. 10 mm right paratracheal lymph node which may be reactive in nature. No mass lesions noted in visualized upper abdomen. Unremarkable osseous structures. Ordered By: LIAT QUINONES Interpreted By: Porter Bedoya, 07/29/2022 3:20 PM 07/29/22 1333 XR CHEST PORTABLE Final result Impression: IMPRESSION: 1. Significant bilateral alveolar opacities, greater on the right side. Please assess for atypical infectious process such as Covid 19. Other possibility is advanced CHF.. 2. Small bilateral pleural effusions. No pneumothorax.. 3. Moderate cardiomegaly. Echocardiogram may be of benefit.. Osseous structures intact. Ordered By: LIAT QUINONES Interpreted By: Remigio Duggan, 07/29/2022 1:47 PM Discharge Exam: Filed Vitals: 08/06/22 1258 08/06/22 2104 08/07/22 0500 08/07/22 0904 BP: (!) 161/88 (!) 146/78 Pulse: 91 89 Resp: 20 18 Temp: 97.9 ??F (36.6 ??C) 98.4 ??F (36.9 ??C) TempSrc: Oral Oral SpO2: 94% 93% 98% Weight: 126.5 kg (278 lb 14.1 oz) Height: Physical Exam Discharge Medications: Medication List START taking these medications Morning Afternoon Evening Bedtime As Needed amLODIPine 10 MG tablet Commonly known as: NORVASC Start taking on: August 08, 2022 Take 1 tablet (10 mg total) by mouth daily for 30 days. Last time this was given: 10 mg on August 07, 2022 10:06 AM carvedilol 12.5 MG tablet Commonly known as: COREG Take 1 tablet (12.5 mg total) by mouth 2 (two) times daily for 30 days. Last time this was given: 12.5 mg on August 07, 2022 10:05 AM ferrous sulfate (65 mg elemental) 325 (65 FE) MG tablet Take 1 tablet (325 mg total) by mouth daily with breakfast for 28 days. Last time this was given: 325 mg on August 07, 2022 12:13 PM furosemide 20 MG tablet Commonly known as: LASIX Start taking on: August 08, 2022 Take 1 tablet (20 mg total) by mouth daily for 28 days. Last time this was given: 20 mg on August 07, 2022 10:05 AM insulin glargine 100 UNIT/ML injection (VIAL) Commonly known as: LANTUS Start taking on: August 08, 2022 Inject 10 Units into the skin nightly at bedtime for 30 days. Last time this was given: 7 Units on August 07, 2022 10:07 AM insulin lispro 100 UNIT/ML injection (VIAL) Commonly known as: HUMALOG Inject 5 Units into the skin 3 (three) times daily with meals. Last time this was given: 5 Units on August 07, 2022 4:59 PM levoFLOXacin 750 MG tablet Commonly known as: LEVAQUIN Start taking on: August 08, 2022 Take 1 tablet (750 mg total) by mouth daily for 3 days. Last time this was given: 750 mg on August 07, 2022 10:06 AM Disposition: discharged to home Follow UP Instructions : Labs BMP WITHOUT GLUCOSE Release to patient: System release Francesca Salmon MD [address] [address] Call in 2 day(s) Please follow up with PCP within a week of discharge Time spent on discharge: Total time spent 32 minutes. Signed Noor Khalid, MD documented in this encounter Discharge Instructions * Discharge Instructions* Veena Truong MD - 08/07/2022 3:03 PM CDT Do not take lantus tonight. Start taking 10 units of lantus every day from tomorrow morning. Continue 5 units of insulin lispro with every meal. Continue levofloxacin for another three days starting tomorrow. You will need a follow-up chest x-ray in 4 to 6 weeks time to be sure of resolution of pulmonary infiltrates. Please follow-up with your PCP regarding your blood pressure, heart failure and diabetes. * Attachments The following attachments cannot be sent through Care Everywhere. * DASH Diet (Malawian) * High Blood Pressure Discharge Instructions (Malawian) * Diabetes and Diet (Malawian) * Pneumonia Discharge Instructions, Adult (Malawian) * Heart Failure, Adult (Malawian) documented in this encounter Medications at Time [...] daily with meals. 4.5 mL 08/07/2022 2 levoFLOXacin (LEVAQUIN) 750 MG tablet Take 1 tablet (750 mg total) by mouth daily for 3 days. 3 tablet 08/08/2022 2 documented as of this encounter Progress Notes * Veena Truong MD - 08/07/2022 1:00 PM CDT Progress note SUBJECTIVE: Patient is doing much better today. She denies any complains. She was sitting cofmortably in her chair. She was able to walk. She does not have a PCP. She was encouraged to continue her medications as prescribed and follow up with PCP. Chief Complaint: Follow-up of pneumonia, acute respiratory failure ROS: Review of systems negative except stated otherwise OBJECTIVE Blood pressure (!) 146/78, pulse 89, temperature 98.4 ??F (36.9 ??C), temperature source Oral, resp. rate 18, height 5' 7 (1.702 m), weight 126.5 kg (278 lb 14.1 oz), last menstrual period 07/08/2022, SpO2 98 %. Physical Exam Constitutional: Appearance: She is obese. Cardiovascular: Rate and Rhythm: Normal rate and regular rhythm. Heart sounds: No murmur heard. Pulmonary: Effort: Pulmonary effort is normal. No respiratory distress. Breath sounds: No wheezing. Abdominal: General: Abdomen is flat. Bowel sounds are normal. There is no distension. Tenderness: There is no abdominal tenderness. Musculoskeletal: Right lower leg: Edema present. Left lower leg: Edema present. Skin: General: Skin is warm. Neurological: General: No focal deficit present. Mental Status: She is oriented to person, place, and time. Mental status is at baseline. Cranial Nerves: No cranial nerve deficit. LABS:. Recent Labs 08/06/22 0442 WBC 9.1 HGB 8.9* HCT 28.9* MCV 88.4 PLT 559* RBC 3.27* Recent Labs Lab 08/04/22 0446 08/05/223 08/06/22441 NA 142 143 143 K 3.3* 3.8 3.9 CL 110* 111* 110* CO2 26.6 25.8 29.1 AGAP 5.4 6.2 3.9* BUN 15 13 12 CR 1.70* 2.00* 1.81* GLU 123* 240* 106 CA 8.6 8.1* 8.3* Recent Labs Lab 08/01/22 0646 INR 1.2* Intake/Output Summary (Last 24 hours) at 08/07/20222014 Last data filed at 08/07/2022 1200 Gross per 24 hour Intake 918 ml Output -- Net 918 ml RADIOLOGY : REVIEWED MEDICATIONS Scheduled medications ??? amLODIPine 10 mg Oral Daily ??? carvedilol 12.5 mg Oral BID ??? enoxaparin 40 mg Subcutaneous 2 times per day ??? ferrous sulfate (65 mg elemental) 1 tablet Oral Daily with lunch ??? furosemide 20 mg Oral Daily ??? [START ON 08/08/2022] insulin glargine 10 Units Subcutaneous Nightly at bedtime ??? insulin lispro 0-8 Units Subcutaneous 4x Daily AC and at bedtime ??? insulin lispro 5 Units Subcutaneous TID WC ??? levoFLOXacin 750 mg Oral Daily ??? normal saline 3-10 mL Intravenous BID ??? pantoprazole EC 40 mg Oral Daily ??? potassium chloride 40 mEq Oral Once Infusion PRN acetaminophen OR acetaminophen, albuterol sulfate HFA, hydrALAZINE, normal saline, ondansetron,perflutren lipid microsphere, polyethylene glycol ASSESSMENT /PLAN 31 years old female, morbidly obese history of diabetes, has not been on insulin for the last 1 year because of no insurance admitted to ICU with acute respiratory failure. Initially required BiPAP with oxygen up to 10 to 15 L. CTA chest showed dense patchy opacities right greater than left, she was started on broad-spectrum antibiotics and Bronchoscopy was done 07/31/2022. Bounce back to the ICU the same day she was downgraded on 07/31/2022 because of increasing oxygen requirements. Inflammatorywork-up ongoing and pulmonary is following the patient as well. She was again transferred to regular medical floor 08/02/2022 after improvement of her oxygen status. PLAN: #Multifocal pneumonia #Acute hypoxic respiratory failure We will switch to oral antibiotics per recommendations from pulmonology, 5 more days of oral Levaquin EOT 08/11. Continue pulmonary rehab Follow-up x-ray in 4 to 6 weeks for resolution of pulmonary infiltrates. Pulmonology signed off, appreciate recommendations. #Acute diastolic CHF exacerbation -Echo showed normal EF, elevated right atrial pressure. -Resume Lasix 20 mg p.o. today #BOBBY, unknown if she has underlying CKD -Normal PTH. We will continue to avoid nephrotoxic medications. #Type 1 diabetes, uncontrolled -Has not taken insulin for the last 1 year, due to insurance issues. HbA1c elevated to 13. DecreaseLantus, continue sliding scale and AC insulin. Carb consistent diet. Patient will need supplies & education on insulin on discharge #Hypertension -Stop hydrochlorothiazide due to BOBBY as well as initiation of furosemide, continue amlodipine 10 mgdaily and Coreg 12.5 mg twice daily #Mixed JIAN/ACD -Start oral ferrous sulfate. #Possible EDD -Needs outpatient sleep study for formal diagnosis #Hypokalemia Monitor and replete as needed DVT Prophylaxis: Subcutaneous Lovenox Code status: Full Code Disposition Plan to DC today if she is able to get her insulin Veena Truong MD 8:15 PM 08/07/2022 * Neelam Marcus RN - 08/07/2022 11:38 AM CDT Problem: Gas Exchange - Impaired Goal: Adequate oxygenation Outcome: Progressing Problem: Infection - Risk of, Septic Shock Goal: Absence of infection signs and symptoms Outcome: Progressing Problem: Infection - Risk of, Urinary Catheter-Associated Urinary Tract Infection Goal: Absence of infection signs and symptoms Outcome: Progressing Problem: Mental Status - Risk of, Impaired Goal: Mental status restored to baseline Outcome: Progressing Problem: Pain - Acute Goal: Achieve acceptable pain level Outcome: Progressing Goal: Reduced pain sensation Outcome: Progressing Problem: Skin Integrity - Risk of, Impaired Goal: Skin integrity intact Outcome: Progressing Problem: Tissue Perfusion - Cardiopulmonary, Altered Goal: Circulatory function within specified parameters Outcome: Progressing Problem: Venous Thromboembolism - Risk of Goal: Absence of deep venous thrombosis Outcome: Progressing Problem: Discharge Planning Goal: Knowledge of discharge instructions Outcome: Progressing Problem: Reduced risk for falls/injury Goal: Reduced Risk for Falls/Injury Outcome: Progressing Goal: Reduced Risk of Confusion (Acute vs Chronic) Outcome: Progressing Goal: Reduced Risk of Symptomatic Depression Outcome: Progressing Goal: Reduced Risk of Altered Elimination Outcome: Progressing Goal: Reduced Risk of Dizziness/Vertigo/Balance Outcome: Progressing Goal: Reduced Risk of Polypharmacy Outcome: Progressing Problem: Discharge Planning Goal: Knowledge of discharge instructions Outcome: Progressing Problem: Pain control/comfort Goal: Promote pain control/comfort Outcome: Progressing Problem: Skin integrity, Impaired-wound Goal: Absence of new skin breakdown Outcome: Progressing Goal: Evidence of wound healing Outcome: Progressing Problem: Skin integrity, Impaired-pressure injury/ulcer Goal: Absence of new skin breakdown Outcome: Progressing Goal: Evidence of pressure injury/ulcer healing Outcome: Progressing Problem: Skin integrity, at risk Goal: Absence of new skin breakdown Outcome: Progressing Problem: Moisture associated skin impairment Goal: Reduce moisture exposure Outcome: Progressing Goal: Evidence of wound healing Outcome: Progressing Goal: Evidence of pressure injury/ulcer healing Outcome: Progressing Goal: Absence of new skin breakdown Outcome: Progressing Problem: Discharge Planning Goal: Knowledge of discharge instructions Outcome: Progressing Problem: Injury - Risk of, Abnormal Serum Glucose Level Goal: Glucose level within specified parameters Outcome: Progressing Problem: Pain Goal: Patient's pain/discomfort is manageable Description: Assess and monitor patient's pain using appropriate pain scale. Collaborate with interdisciplinary team and initiate plan and interventions as ordered. Re-assess patient's pain level 30 - 60 minutes after pain management intervention. Outcome: Progressing Problem: Safety Goal: Patient will be injury free during hospitalization Description: Assess and monitor vitals signs, neurological status including level of consciousness and orientation. Assess patient's risk for falls and implement fall prevention plan of care and interventions per hospital policy. Ensure arm band on, uncluttered walking paths in room, adequate room lighting, call light and overbed table within reach, bed in low position, wheels locked, side rails up per policy, and non-skid footwear provided. Outcome: Progressing Problem: Daily Care Goal: Daily care needs are met Description: Assess and monitor ability to perform self care and identify potential discharge needs. Outcome: Progressing Problem: Psychosocial Needs Goal: Demonstrates ability to cope with hospitalization/illness Description: Assess and monitor patients ability to cope with his/her illness. Outcome: Progressing Goal: Collaborate with patient/family/caregiver to identify patient specific goals for this hospitalization Outcome: Progressing Problem: Discharge Barriers Goal: Patient's discharge needs are met Description: Collaborate with interdisciplinary team and initiate plans and interventions as needed. Outcome: Progressing Problem: Infection - Risk of, Central Venous Catheter-Associated Bloodstream Infection Goal: Absence of Central Venous Catheter Associated Bloodstream Infection Signs and Symptoms Outcome: Progressing * Brionna Whitehead RN - 08/07/2022 11:00 AM CDTSummary: D/C plans IDBR done with Dr Alexi MCCULLOUGH MD per phone to discuss POC/D/C plans. See info below. 1300 Spoke with pt about finding PCP. Pt states she lives in [facility] and will call to make appointment with a PCP when she is D/C as she knows the area better and knows which MD she would like to make appointment with. 08/07/22 1100 Interdisciplinary Group Conference Team Members Present Physician;Case/Care management Barriers to Discharge Barriers Other (Comment) Other (Comment)follow up Pt condition improved, not on any oxygen and can D/C home today. CM to speak with pt about finding PCP. * Omar Cooley, PT - 08/07/2022 8:45 AM CDTSummary: PT Eval PT Initial Evaluation Discharge Recommendation: home with assistance No skilled P/T DME equipment recommendation: none Activity Recommendation for cutlery grinder: Up with one and DANIEL 08/07/22 0869 Therapy Visit Ordering Provider MD Alexi PT Received On 08/07/22 Subjective Pt received supine in bed with HOB elevated for therapy session. Reason for admission Pt presented with subacute onset of dyspnea progressively worsening. Pt admitted with acute hypoxic respiratory failure, multifocal pneumonia, hypokalemia, acute diastolic CHF exacerbation and BOBBY on CKD. Pt is s/p bronchoscopy on 07/31.....PMH:Uncontrolled DM with a hx of DKA; Medical noncompliance; CKD III, Morbid obesity....Orders:Eval and treat Verified Two Patient Identifiers Yes Patient consents to therapy Yes Acute Inpatient PT Time Calculation PT Start Time 0830 PT Stop Time 0845 PT Time Calculation (min) 15 min Precautions Other PICC line, tele Home Living Home Living Comments Pt lives with her sister and niece in a 1 story home with 1 platform step withone handrail to enter. Bathroom has a tub/shower combo. Toilet is standard height with a sink/vanity nearby to use for support. Pt has the following DME:none. Pt was independent with all functional mobility, ADLs and IADLs at baseline. Pt has 26/05 supervision/assistance, from family--mom or dad--ifnecessary at discharge. Pain Pain No Activity Tolerance Endurance Endurance does not limit participation in activity Cognition Overall Cognitive Status WFL Arousal/Alertness Appropriate responses to stimuli Attention Span Appears intact Memory Appears intact Orientation Level Oriented X4 Following Commands Follows all commands and directions without difficulty Safety Judgment Good awareness of safety precautions Awareness of Errors Good awareness of errors made Deficits Fully aware of deficits Problem Solving Able to problem solve independently Sensation Light Touch No apparent deficits (B LEs) RLE Assessment RLE Assessment WFL LLE Assessment LLE Assessment WFL Bed Mobility Supine to Sit Modified independence TRANSFERS Stand Pivot Transfers Independent Sit to Stand Modified independence Bed to Chair Independent Gait Gait Assistance Independent Assistive Device None Distance Ambulated (ft) 300 ft Pattern WFL Stairs Stair Management Assistance Modified independence;With gait belt Stair Management Technique Alternating pattern;One rail R;Forward;With gait belt Number of Stairs 4 Balance Sitting - Static Independent Sitting - Dynamic Independent Standing - Static Independent Standing - Dynamic Independent;Inside base of support Assessment Personal Factors/Comorbidities Impacting Care 3-4 personal factors/comorbidities Examination of Body Systems Low (1-2 Elements) Objectives of Body Systems (no impairments) Clinical Presentation of Patient Evolving and changing characteristics Complexity Level of Evaluation Low Prognosis Good PT Assess/Eval Other (Comment) Pt is a 31 year old female who presented with subacute onset of dyspnea progressively worsening. Pt admitted with acute hypoxic respiratory failure, multifocal pneumonia, hypokalemia, acute diastolic CHF exacerbation and BOBBY on CKD. Pt is s/p bronchoscopy on 07/31. Pt presents with no functional deficits at this time. Pt able to complete all mobility independently this session. Pt currently presents with no acute skilled therapy needs at this time, therefore P/T will plan to sign off. Please send new orders if pt has change in status or if new needs arise. Recommendation PT Recommendation Home with assistance;No skilled PT;Ambulate with nurse PT Equipment Recommended No DME Needed No Skilled PT No acute PT goals identified Plan Progress Discontinue PT PT Frequency One time visit PT - Next Appointment 08/07/22 If this is the last treatment note,it will serve as the discharge summary Yes End of Session End of Session Safety Call light within reach;Nursing aware of session;Transfer status education Education: Primary Learners Name: Leeroy Canales Primary Language of learner: Malawian Patient was educated on precautions transfers ADLs balance bed mobility equipment therapy plan gait safety stair training energy conservation adaptive skills. Education was completed one to one verbal this date. Preference of learning new concepts one to one verbal Barriers to education this date were none. Response to education this date demos adequately. 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 Pt presents as SBA/[place] for LBD, bed mobility, and functional transfers; demonstrates good standing activity tolerance, balance, and safety for functional tasks. Pt appears safe to return home with family assist at this time. OT will sign off. Please send new orders if a change in medical status occurs. 08/07/22 0834 Therapy Visit OT Received On 08/07/22 Reason for admission Pt presented with subacute onset of dyspnea progressively worsening. Pt admitted with acute hypoxic respiratory failure, multifocal pneumonia, hypokalemia, acute diastolic CHF exacerbation and BOBBY on CKD. Pt is s/p bronchoscopy on 07/31.....PMH:Uncontrolled DM with a hx of DKA; Medical noncompliance; CKD III, Morbid obesity....Orders:Eval and treat Ordering Provider MD Alexi Verified Two Patient Identifiers Yes Patient consents to therapy Yes Acute Inpatient OT Time Calculation OT Start Time 08 OT Stop Time 0845 OT Time Calculation (min) 15 min Precautions Other PICC line, tele Subjective Subjective RN ok'd session. Pt reports she hopes to go home soon. Home Living Home Living Comments Pt lives with her sister and niece in a 1 story home with 1 platform step withone handrail to enter. Bathroom has a tub/shower combo. Toilet is standard height with a sink/vanity nearby to use for support. Pt has the following DME:none. Pt was independent with all functional mobility, ADLs and IADLs at baseline. Pt has 26/05 supervision/assistance, from family--mom or dad--ifnecessary at discharge. Pain Pain No Objective Objective Pt received for OT session supine in bed. Activity Tolerance Endurance Endurance does not limit participation in activity Vision - Basic Assessment Current Vision Wears glasses (supposed to wear them, does not have them here) Vision - Complex Assessment Additional Comments Pt reports no acute visual changes. Cognition Overall Cognitive Status WFL Arousal/Alertness Appropriate responses to stimuli Attention Span Appears intact Memory Appears intact Orientation Level Oriented X4 Following Commands Follows all commands and directions without difficulty Safety Judgment Good awareness of safety precautions Awareness of Errors Good awareness of errors made Deficits Fully aware of deficits Problem Solving Able to problem solve independently Overall Extremity Assessment Upper Extremity Gato UE AROM and MMT: WFL Hand Function Hand Dominance Right Gross Grasp Functional Coordination Functional Sensation Light Touch No apparent deficits ADL Additional Comments Pt donned her gato socks seated in chair with [place]. Pt declined further ADLs, states she has been going to the bathroom Independently at the hospital. Bed Mobility Supine to Sit Modified independence Other (Comment) HOB elevated Functional Transfers Sit to Stand Modified independence Bed to Chair Independent Functional Mobility Pt performed functional transfers/mobility in room and hallway mocking household distances without AD with [place] Balance Sitting - Static Independent Sitting - Dynamic Independent Standing - Static Independent Standing - Dynamic Independent Other (Comment) No LOB Assessment Occupational Profile and History Complexity Low (Brief) Performance Deficit Level Low (1-3 deficits) Clinical Decision Making Low (no modifications) Complexity Level of Evaluation Low Prognosis Good Recommendation OT Recommendation Home with assistance;No skilled OT OT Equipment Recommended No DME Needed No Skilled OT No acute OT goals identified Plan Progress Discontinue OT OT - Next Appointment 08/07/22 If this is the last treatment note, it will serve as the discharge summary Yes End of Session End of Session Safety Call light within reach;Nursing aware of session Education: Primary Learners Name: Leeroy Canales Primary Language of learner: Malawian Patient was educated on precautions transfers ADLs balance therapy plan safety. Education was completed one to one verbal hands-on this date. Preference of learning new concepts one to one verbal hands-on Barriers to education this date were none. Response to education this date verbalized understanding demos adequately. * Karley Cruz RN - 08/06/2022 9:32 PM CDT Problem: Gas Exchange - Impaired Goal: Adequate oxygenation Outcome: Progressing Problem: Infection - Risk of, Septic Shock Goal: Absence of infection signs and symptoms Outcome: Progressing Problem: Infection - Risk of, Urinary Catheter-Associated Urinary Tract Infection Goal: Absence of infection signs and symptoms Outcome: Progressing Problem: Mental Status - Risk of, Impaired Goal: Mental status restored to baseline Outcome: Progressing Problem: Pain - Acute Goal: Achieve acceptable pain level Outcome: Progressing Goal: Reduced pain sensation Outcome: Progressing Problem: Skin Integrity - Risk of, Impaired Goal: Skin integrity intact Outcome: Progressing Problem: Tissue Perfusion - Cardiopulmonary, Altered Goal: Circulatory function within specified parameters Outcome: Progressing Problem: Venous Thromboembolism - Risk of Goal: Absence of deep venous thrombosis Outcome: Progressing Problem: Discharge Planning Goal: Knowledge of discharge instructions Outcome: Progressing Problem: Reduced risk for falls/injury Goal: Reduced Risk for Falls/Injury Outcome: Progressing Goal: Reduced Risk of Confusion (Acute vs Chronic) Outcome: Progressing Goal: Reduced Risk of Symptomatic Depression Outcome: Progressing Goal: Reduced Risk of Altered Elimination Outcome: Progressing Goal: Reduced Risk of Dizziness/Vertigo/Balance Outcome: Progressing Goal: Reduced Risk of Polypharmacy Outcome: Progressing Problem: Discharge Planning Goal: Knowledge of discharge instructions Outcome: Progressing Problem: Pain control/comfort Goal: Promote pain control/comfort Outcome: Progressing Problem: Skin integrity, Impaired-wound Goal: Absence of new skin breakdown Outcome: Progressing Goal: Evidence of wound healing Outcome: Progressing Problem: Skin integrity, Impaired-pressure injury/ulcer Goal: Absence of new skin breakdown Outcome: Progressing Goal: Evidence of pressure injury/ulcer healing Outcome: Progressing Problem: Skin integrity, at risk Goal: Absence of new skin breakdown Outcome: Progressing Problem: Moisture associated skin impairment Goal: Reduce moisture exposure Outcome: Progressing Goal: Evidence of wound healing Outcome: Progressing Goal: Evidence of pressure injury/ulcer healing Outcome: Progressing Goal: Absence of new skin breakdown Outcome: Progressing Problem: Discharge Planning Goal: Knowledge of discharge instructions Outcome: Progressing Problem: Injury - Risk of, Abnormal Serum Glucose Level Goal: Glucose level within specified parameters Outcome: Progressing Problem: Pain Goal: Patient's pain/discomfort is manageable Description: Assess and monitor patient's pain using appropriate pain scale. Collaborate with interdisciplinary team and initiate plan and interventions as ordered. Re-assess patient's pain level 30 - 60 minutes after pain management intervention. Outcome: Progressing Problem: Safety Goal: Patient will be injury free during hospitalization Description: Assess and monitor vitals signs, neurological status including level of consciousness and orientation. Assess patient's risk for falls and implement fall prevention plan of care and interventions per hospital policy. Ensure arm band on, uncluttered walking paths in room, adequate room lighting, call light and overbed table within reach, bed in low position, wheels locked, side rails up per policy, and non-skid footwear provided. Outcome: Progressing Problem: Daily Care Goal: Daily care needs are met Description: Assess and monitor ability to perform self care and identify potential discharge needs. Outcome: Progressing Problem: Psychosocial Needs Goal: Demonstrates ability to cope with hospitalization/illness Description: Assess and monitor patients ability to cope with his/her illness. Outcome: Progressing Goal: Collaborate with patient/family/caregiver to identify patient specific goals for this hospitalization Outcome: Progressing Problem: Discharge Barriers Goal: Patient's discharge needs are met Description: Collaborate with interdisciplinary team and initiate plans and interventions as needed. Outcome: Progressing Problem: Infection - Risk of, Central Venous Catheter-Associated Bloodstream Infection Goal: Absence of Central Venous Catheter Associated Bloodstream Infection Signs and Symptoms Outcome: Progressing * Veena Truong MD - 08/06/2022 3:02 PM CDT Progress note SUBJECTIVE: Patient is doing much better today. She is still requiring some oxygen. Chief Complaint: Follow-up of pneumonia, acute respiratory failure Review of Systems Constitutional: Negative for chills and fever. HENT: Negative for congestion and sore throat. Respiratory: Positive for shortness of breath. Negative for cough. Cardiovascular: Positive for leg swelling. Negative for chest pain. Gastrointestinal: Negative for abdominal pain, constipation, diarrhea, nausea and vomiting. Genitourinary: Negative for dysuria, frequency and urgency. Musculoskeletal: Negative for myalgias. Neurological: Negative for speech change and focal weakness. Psychiatric/Behavioral: Negative for depression. OBJECTIVE Blood pressure (!) 154/92, pulse 92, temperature 97.7 ??F (36.5 ??C), temperature source Oral, resp. rate 18, height 5' 7 (1.702 m), weight 126.6 kg (279 lb 1.6 oz), last menstrual period 07/08/2022, SpO2 94 %. Physical Exam Constitutional: Appearance: She is obese. She is ill-appearing. Cardiovascular: Rate and Rhythm: Normal rate and regular rhythm. Heart sounds: No murmur heard. Pulmonary: Effort: Pulmonary effort is normal. No respiratory distress. Breath sounds: No wheezing. Abdominal: General: Abdomen is flat. Bowel sounds are normal. There is no distension. Tenderness: There is no abdominal tenderness. Musculoskeletal: Right lower leg: Edema present. Left lower leg: Edema present. Skin: General: Skin is warm. Neurological: General: No focal deficit present. Mental Status: She is oriented to person, place, and time. Mental status is at baseline. Cranial Nerves: No cranial nerve deficit. LABS:. Recent Labs 08/06/22441 WBC 9.1 HGB 8.9* HCT 28.9* MCV 88.4 PLT 559* RBC 3.27* Recent Labs Lab 07/31/22 0450 08/01/22 0646 08/04/22 0446 08/05/22 0443 08/06/22 0442 NA 140 < > 142 143 143 K 3.3* < > 3.3* 3.8 3.9 CL 108* < > 110* 111* 110* CO2 27.6 < > 26.6 25.8 29.1 AGAP 4.4* < > 5.4 6.2 3.9* BUN 18 < > 15 13 12 CR 1.54* < > 1.70* 2.00* 1.81* GLU 84 < > 123* 240* 106 CA 8.4* < > 8.6 8.1* 8.3* TP 5.6* -- -- -- -- ALB 1.4* -- -- -- -- TBIL 0.3 -- -- -- -- ALKP 67 -- -- -- -- AST 18 -- -- -- -- ALT 16 -- -- -- -- < > = values in this interval not displayed. Recent Labs Lab 08/01/22 0646 INR 1.2* Intake/Output Summary (Last 24 hours) at 08/06/2022 1502 Last data filed at 08/05/2022 2100 Gross per 24 hour Intake 500 ml Output 1000 ml Net -500 ml RADIOLOGY : REVIEWED MEDICATIONS Scheduled medications ??? amLODIPine 10 mg Oral Daily ??? carvedilol 12.5 mg Oral BID ??? cefepime 2 g Intravenous Q12H ??? enoxaparin 40 mg Subcutaneous 2 times per day ??? ferrous sulfate (65 mg elemental) 1 tablet Oral Daily with breakfast ??? insulin glargine 7 Units Subcutaneous BID ??? insulin lispro 0-8 Units Subcutaneous 4x Daily AC and at bedtime ??? insulin lispro 7 Units Subcutaneous TID WC ??? linezolid 600 mg Oral 2 times per day ??? normal saline 3-10 mL Intravenous BID ??? pantoprazole EC 40 mg Oral Daily ??? potassium chloride 40 mEq Oral Once Infusion PRN acetaminophen OR acetaminophen, albuterol sulfate HFA, hydrALAZINE, normal saline, ondansetron,perflutren lipid microsphere, polyethylene glycol ASSESSMENT /PLAN 31 years old female, morbidly obese history of diabetes, has not been on insulin for the last 1 year because of no insurance admitted to ICU with acute respiratory failure. Initially required BiPAP with oxygen up to 10 to 15 L. CTA chest showed dense patchy opacities right greater than left, she was started on broad-spectrum antibiotics and Bronchoscopy was done 07/31/2022. Bounce back to the ICU the same day she was downgraded on 07/31/2022 because of increasing oxygen requirements. Inflammatorywork-up ongoing and pulmonary is following the patient as well. She was again transferred to regular medical floor 08/02/2022 after improvement of her oxygen status. PLAN: #Multifocal pneumonia #Acute hypoxic respiratory failure We will switch to oral antibiotics per recommendations from pulmonology, 5 more days of oral Levaquin EOT 08/11. Continue pulmonary rehab Follow-up x-ray in 4 to 6 weeks for resolution of pulmonary infiltrates. Pulmonology signed off, appreciate recommendations. #Acute diastolic CHF exacerbation -Echo showed normal EF, elevated right atrial pressure. -Resume Lasix 20 mg p.o. today #BOBBY, unknown if she has underlying CKD -Normal PTH. Creatinine elevated to 2 this morning. No UTI, unremarkable renal ultrasound. -Vancomycin/Zosyn changed to linezolid/cefepime. We will continue to avoid nephrotoxic medications. #Type 1 diabetes, uncontrolled -Has not taken insulin for the last 1 year, due to insurance issues. HbA1c elevated to 13. DecreaseLantus, continue sliding scale and AC insulin. Carb consistent diet. Patient will need supplies & education on insulin on discharge #Hypertension -Stop hydrochlorothiazide due to BOBBY as well as initiation of furosemide, continue amlodipine 10 mgdaily and Coreg 12.5 mg twice daily #Mixed JIAN/ACD -Start oral ferrous sulfate. #Possible EDD -Needs outpatient sleep study for formal diagnosis #Hypokalemia Monitor and replete as needed DVT Prophylaxis: Subcutaneous Lovenox Code status: Full Code Disposition Plan to DC in 1 to 2 days Veena Truong MD 3:02 PM 08/06/2022 * Melia Braswell, RD - 08/06/2022 11:22 AM CDT CLINICAL DIETITIAN RESCREEN Patient is a 31-year-old female admitted secondary to Respiratory failure with hypoxia ([facility]) [J96.91]. Past Medical History: Diagnosis Date ??? Diabetes mellitus ([facility]/HCC) Current diet order: Diet Carb Controlled Appropriate; 75g/meal Current diet appropriate? Yes Appetite adequate? Yes; Based on 3-day review of PO intake per EHR and [employer], patient consumed an average of 1193 kcal/day and 58 gm/day protein. Fluid intake appears adequate for hydration. Bhavin scale noted to be adequate for nutrition per nurse documentation. Patient receiving EN or TPN? No Admission weight: 122.5 kg (Date: 07/30/22; Method: Not recorded) Weight stable? Yes; bed weights appear stable since admission Last 5 Recorded Weights 07/30/22 0000 08/03/22 0500 08/04/22 0500 08/05/22 0500 Weight: 122.5 kg (270 lb 1 oz) 128 kg (282 lb 3.2 oz) 128.1 kg (282 lb 6.6 oz) 128.1 kg (282 lb 6.6oz) 08/06/22 0500 Weight: 126.6 kg (279 lb 1.6 oz) Body mass index is 43.71 kg/m??. (Obesity Class III) Skin (stage 2 or greater pressure ulcer or other significant non-healing wound)? No Summary: Nutrition risk identified? No Plan: [x] Provide basic nutrition services [x] Rescreen for nutrition risk per protocol [] Monitor NPO/clear liquid status [] Monitor oral intake [] Assess education needs [] Start nutrition assessment MELIA BRASWELL RD, LDN * Brionna Whitehead RN - 08/06/2022 10:30 AM CDTSummary: D/C plans IDBR done with Dr Alexi MCCULLOUGH MD per phone to discuss POC/D/C plans. See notes below. 08/06/22 1030 Interdisciplinary Group Conference Team Members Present Case/Care management;Physician Barriers to Discharge Barriers Not Medically ready Not Medically ready follow up Still on O2-may need home O2 eval. To switch to PO antibiotics. CM following. * Diandra Daly MD - 08/06/2022 9:11 AM CDT [facility] Pulmonary Progress Note SUBJECTIVE: Significant improvement in oxygenation currently breathing comfortably on room air and ambulating within the room. Allergies: No Known Allergies Current Facility-Administered Medications: ??? acetaminophen (TYLENOL) tablet 650 mg, 650 mg, Oral, Q4H PRN OR acetaminophen (TYLENOL) suppository 650 mg, 650 mg, Rectal, Q4H PRN, Tono Bejarano MD ??? albuterol sulfate HFA 108 (90 Base) MCG/ACT inhaler 2 puff, 2 puff, Inhalation, Q6H PRN, Tono Bejarano MD ??? amLODIPine (NORVASC) tablet 10 mg, 10 mg, Oral, Daily, Tono Bejarano MD, 10 mg at 08/06/22 0839 ??? carvedilol (COREG) tablet 12.5 mg, 12.5 mg, Oral, BID, Nae Sotelo MD, 12.5 mg at 08/06/2239 ??? ceFEPIme (MAXIPIME) 2 g in sodium chloride (PF) 0.9 % 10 mL IV, 2 g, Intravenous, Q12H, Nae Sotelo MD, 2 g at 08/05/22 2315 ??? enoxaparin (LOVENOX) 40 MG/0.4ML syringe 40 mg, 40 mg, Subcutaneous, 2 times per day, 40 mg at 08/06/2238 AND [COMPLETED] Place sequential compression device, , , Once AND [COMPLETED] Intermittent Pneumatic Compression Device Applied, , , Once AND Assess Sequential Compression Dev ice (Assess skin at a minimum of every shift), , , Q Shift AND Maintain Sequential Compression Device, , , Daily AND [COMPLETED] HIGH RISK FOR VTE, , , Once, Nae Wayne MD ??? ferrous sulfate (65 mg elemental) tablet 325 mg, 1 tablet, Oral, Daily with breakfast, Carrie Sotelo MD, 325 mg at 08/06/2239 ??? hydrALAZINE (APRESOLINE) injection 20 mg, 20 mg, Intravenous, Q6H PRN, Tono Bejarano MD, 20mg at 08/03/222 ??? insulin glargine (LANTUS) injection 10 Units, 10 Units, Subcutaneous, BID, Tono Bejarano MD, 10 Units at 08/06/2238 ??? insulin lispro (HUMALOG) injection 0-8 Units, 0-8 Units, Subcutaneous, 4x Daily AC and at bedtime, Nae Sotelo MD, 2 Units at 08/05/225 ??? insulin lispro (HUMALOG) injection 7 Units, 7 Units, Subcutaneous, TID WC, Nae Sotelo MD, 7 Units at 08/05/22 1255 ??? linezolid (ZYVOX) tablet 600 mg, 600 mg, Oral, 2 times per day, Nae Sotelo MD, 600 mg at 08/06/22 0839 ??? normal saline 0.9 % flush 3-10 mL, 3-10 mL, Intravenous, PRN, Tono Bejarano MD ??? normal saline 0.9 % flush 3-10 mL, 3-10 mL, Intravenous, BID, Nae Sotelo MD, 10 mL at 08/06/22 0839 ??? ondansetron (ZOFRAN) injection 4 mg, 4 mg, Intravenous, Q8H PRN, Alexis Woodward MD ??? pantoprazole EC (PROTONIX) tablet 40 mg, 40 mg, Oral, Daily, Nae Sotelo MD, 40 mg at 08/06/22 0839 ??? perflutren lipid microsphere (DEFINITY) injection 2 mL, 2 mL, Intravenous, ONCE PRN, Tono Bejarano MD ??? polyethylene glycol (GLYCOLAX) packet 17 g, 17 g, Oral, Daily PRN, Alexis Woodward MD ??? potassium chloride CR (KLOR-CON M) tablet 40 mEq, 40 mEq, Oral, Once, Nae Sotelo MD acetaminophen OR acetaminophen, albuterol sulfate HFA, hydrALAZINE, normal saline, ondansetron,perflutren lipid microsphere, polyethylene glycol Review of Systems Constitutional: Negative for chills, diaphoresis, fever, malaise/fatigue and weight loss. HENT: Negative for ear discharge, ear pain, hearing loss and tinnitus. Eyes: Negative for blurred vision, double vision and photophobia. Respiratory: Negative for cough, hemoptysis, sputum production, shortness of breath and wheezing. Cardiovascular: Negative for chest pain, palpitations, orthopnea, claudication, leg swelling and PND. Gastrointestinal: Negative for heartburn, nausea and vomiting. Genitourinary: Negative for urgency. Musculoskeletal: Negative for myalgias and neck pain. Neurological: Negative for dizziness, tingling, weakness and headaches. Endo/Heme/Allergies: Negative for environmental allergies. Does not bruise/bleed easily. Psychiatric/Behavioral: Negative for depression, substance abuse and suicidal ideas. OBJECTIVE: Blood pressure (!) 154/92, pulse 92, temperature 97.7 ??F (36.5 ??C), temperature source Oral, resp. rate 18, height 5' 7 (1.702 m), weight 126.6 kg (279 lb 1.6 oz), last menstrual period 07/08/2022, SpO2 93 %. Intake/Output Summary (Last 24 hours) at 08/06/2022 0911 Last data filed at 08/05/2022 2100 Gross per 24 hour Intake 500 ml Output 1000 ml Net -500 ml Physical Exam Constitutional: General: She is not in acute distress. Appearance: She is well-developed. She is not diaphoretic. HENT: Head: Normocephalic and atraumatic. Right Ear: External ear normal. Left Ear: External ear normal. Nose: Nose normal. Eyes: General: No scleral icterus. Right eye: No discharge. Left eye: No discharge. Conjunctiva/sclera: Conjunctivae normal. Pupils: Pupils are equal, round, and reactive to light. Neck: Thyroid: No thyromegaly. Vascular: No JVD. Trachea: No tracheal deviation. Cardiovascular: Rate and Rhythm: Normal rate and regular rhythm. Heart sounds: Normal heart sounds. No murmur heard. No friction rub. No gallop. Pulmonary: Effort: Pulmonary effort is normal. No respiratory distress. Breath sounds: Normal breath sounds. No stridor. No wheezing or rales. Chest: Chest wall: No tenderness. Abdominal: General: Bowel sounds are normal. There is no distension. Palpations: Abdomen is soft. There is no mass. Tenderness: There is no abdominal tenderness. There is no guarding or rebound. Hernia: No hernia is present. Musculoskeletal: General: No tenderness or deformity. Normal range of motion. Cervical back: Normal range of motion and neck supple. Lymphadenopathy: Cervical: No cervical adenopathy. Skin: General: Skin is warm and dry. Coloration: Skin is not pale. Findings: No erythema or rash. Neurological: Mental Status: She is alert. Cranial Nerves: No cranial nerve deficit. Motor: No abnormal muscle tone. Coordination: Coordination normal. Deep Tendon Reflexes: Reflexes are normal and symmetric. Reflexes normal. Psychiatric: Behavior: Behavior normal. DIAGNOSTIC: No results displayed because visit has over 200 results. ASSESSMENT & PLAN: Patient Active Problem List Diagnosis ??? Acute hypoxemic respiratory failure (CMS/HCC) ??? Pulmonary infiltrate ??? Morbid obesity (CMS/HCC) Okay with me to switch to oral antibiotics would consider further 5 days of oral levofloxacin. Increase ambulation and mucus expectoration with incentive spirometry and flutter valve maneuvers. Patient will require follow-up chest x- ray in 4 to 6 weeks time to be sure of resolution of pulmonary infiltrates. No further recommendations at this time will sign off. DIANDRA DALY MD * Karley Cruz RN - 08/05/2022 9:28 PM CDT Problem: Gas Exchange - Impaired Goal: Adequate oxygenation Outcome: Progressing Problem: Infection - Risk of, Septic Shock Goal: Absence of infection signs and symptoms Outcome: Progressing Problem: Infection - Risk of, Urinary Catheter-Associated Urinary Tract Infection Goal: Absence of infection signs and symptoms Outcome: Progressing Problem: Mental Status - Risk of, Impaired Goal: Mental status restored to baseline Outcome: Progressing Problem: Pain - Acute Goal: Achieve acceptable pain level Outcome: Progressing Goal: Reduced pain sensation Outcome: Progressing Problem: Skin Integrity - Risk of, Impaired Goal: Skin integrity intact Outcome: Progressing Problem: Tissue Perfusion - Cardiopulmonary, Altered Goal: Circulatory function within specified parameters Outcome: Progressing Problem: Venous Thromboembolism - Risk of Goal: Absence of deep venous thrombosis Outcome: Progressing Problem: Discharge Planning Goal: Knowledge of discharge instructions Outcome: Progressing Problem: Reduced risk for falls/injury Goal: Reduced Risk for Falls/Injury Outcome: Progressing Goal: Reduced Risk of Confusion (Acute vs Chronic) Outcome: Progressing Goal: Reduced Risk of Symptomatic Depression Outcome: Progressing Goal: Reduced Risk of Altered Elimination Outcome: Progressing Goal: Reduced Risk of Dizziness/Vertigo/Balance Outcome: Progressing Goal: Reduced Risk of Polypharmacy Outcome: Progressing Problem: Discharge Planning Goal: Knowledge of discharge instructions Outcome: Progressing Problem: Pain control/comfort Goal: Promote pain control/comfort Outcome: Progressing Problem: Skin integrity, Impaired-wound Goal: Absence of new skin breakdown Outcome: Progressing Goal: Evidence of wound healing Outcome: Progressing Problem: Skin integrity, Impaired-pressure injury/ulcer Goal: Absence of new skin breakdown Outcome: Progressing Goal: Evidence of pressure injury/ulcer healing Outcome: Progressing Problem: Skin integrity, at risk Goal: Absence of new skin breakdown Outcome: Progressing Problem: Moisture associated skin impairment Goal: Reduce moisture exposure Outcome: Progressing Goal: Evidence of wound healing Outcome: Progressing Goal: Evidence of pressure injury/ulcer healing Outcome: Progressing Goal: Absence of new skin breakdown Outcome: Progressing Problem: Injury - Risk of, Abnormal Serum Glucose Level Goal: Glucose level within specified parameters Outcome: Progressing Problem: Pain Goal: Patient's pain/discomfort is manageable Description: Assess and monitor patient's pain using appropriate pain scale. Collaborate with interdisciplinary team and initiate plan and interventions as ordered. Re-assess patient's pain level 30 - 60 minutes after pain management intervention. Outcome: Progressing Problem: Safety Goal: Patient will be injury free during hospitalization Description: Assess and monitor vitals signs, neurological status including level of consciousness and orientation. Assess patient's risk for falls and implement fall prevention plan of care and interventions per hospital policy. Ensure arm band on, uncluttered walking paths in room, adequate room lighting, call light and overbed table within reach, bed in low position, wheels locked, side rails up per policy, and non-skid footwear provided. Outcome: Progressing Problem: Daily Care Goal: Daily care needs are met Description: Assess and monitor ability to perform self care and identify potential discharge needs. Outcome: Progressing Problem: Psychosocial Needs Goal: Demonstrates ability to cope with hospitalization/illness Description: Assess and monitor patients ability to cope with his/her illness. Outcome: Progressing Goal: Collaborate with patient/family/caregiver to identify patient specific goals for this hospitalization Outcome: Progressing Problem: Discharge Barriers Goal: Patient's discharge needs are met Description: Collaborate with interdisciplinary team and initiate plans and interventions as needed. Outcome: Progressing Problem: Infection - Risk of, Central Venous Catheter-Associated Bloodstream Infection Goal: Absence of Central Venous Catheter Associated Bloodstream Infection Signs and Symptoms Outcome: Progressing * Natalee Martínez - 08/05/2022 5:58 PM CDT 08/05/22 1110 Interdisciplinary Group Information Next Conference Date 08/06/22 Interdisciplinary Group Conference Team Members Present Physician;Case/Care management (Dr. Sotelo, [facility] ) Barriers to Discharge Barriers Not Medically ready Not Medically ready follow up Pneumonia, CHF, diabetic. Pt will need insulin and supplies at d/c. Will wean o2. Need home o2 eval. Possible d/c in 1-2 days. Will change to oral abx tomorrow. Will need PCP set up at d/c. Home at d/c, independent at baseline. Pt lives with sister. Home o2 eval done today. Pt does not qualify for home o2, per pulmonary rehab. Cm will continue to follow clinical course for safe d/c plan and needs. * Lexus Chinchilla RRT - 08/05/2022 3:25 PM CDTSummary: Home oxygen 08/05/22 1500 Home oxygen evaluation date and time Date of Evaluation 08/05/22 Evaluation Time 1500 Resting Oxygen Saturation Resting Saturation off Oxygen 96 % Exercise Oxygen Saturation Exercise Saturation off Oxygen 94 % Distance Walked 150ft Home Oxygen Evaluation Comment Oxygen Evaluation Comment Pt seen for home o2 eval, pt does not qualify for home o2 w/rest or activity, thanks Home Oxygen Evaluation Charge $ Home Oxygen Evaluation Charge Yes * Nae Sotelo MD - 08/05/2022 1:06 PM CDT Progress note SUBJECTIVE: Reports feeling better On low-flow oxygen nasal cannula, ambulating without any significant dyspnea on exertion No acute events overnight Chief Complaint: Follow-up of pneumonia, acute respiratory failure Review of Systems Constitutional: Negative for chills and fever. HENT: Negative for congestion and sore throat. Respiratory: Positive for shortness of breath. Negative for cough. Cardiovascular: Positive for leg swelling. Negative for chest pain. Gastrointestinal: Negative for abdominal pain, constipation, diarrhea, nausea and vomiting. Genitourinary: Negative for dysuria, frequency and urgency. Musculoskeletal: Negative for myalgias. Neurological: Negative for speech change and focal weakness. Psychiatric/Behavioral: Negative for depression. OBJECTIVE Blood pressure (!) 153/84, pulse 94, temperature 98.7 ??F (37.1 ??C), temperature source Oral, resp. rate 18, height 5' 7 (1.702 m), weight 128.1 kg (282 lb 6.6 oz), last menstrual period 07/08/2022, SpO2 96 %. Physical Exam Constitutional: Appearance: She is obese. She is ill-appearing. Cardiovascular: Rate and Rhythm: Normal rate and regular rhythm. Heart sounds: No murmur heard. Pulmonary: Effort: Pulmonary effort is normal. No respiratory distress. Breath sounds: No wheezing. Abdominal: General: Abdomen is flat. Bowel sounds are normal. There is no distension. Tenderness: There is no abdominal tenderness. Musculoskeletal: Right lower leg: Edema present. Left lower leg: Edema present. Skin: General: Skin is warm. Neurological: General: No focal deficit present. Mental Status: She is oriented to person, place, and time. Mental status is at baseline. Cranial Nerves: No cranial nerve deficit. LABS:. Recent Labs 08/03/22 0348 WBC 9.7 HGB 9.7* HCT 31.9* MCV 89.6 PLT 506* RBC 3.56* Recent Labs Lab 07/29/22 1325 07/30/22 0510 07/31/22 0450 08/01/22 0646 08/03/22 0348 08/04/22 0446 08/05/22 0443 NA 136 140 140 < > 141 142 143 K 3.7 3.5 3.3* < > 3.3* 3.3* 3.8 CL 105 108* 108* < > 109* 110* 111* CO2 26.6 26.3 27.6 < > 26.8 26.6 25.8 AGAP 4.4* 5.7 4.4* < > 5.2 5.4 6.2 BUN 12 14 18 < > 20* 15 13 CR 1.34* 1.58* 1.54* < > 1.80* 1.70* 2.00* BUNCREATININ 9.0 -- -- -- -- -- -- GLU 303* 307* 84 < > 83 123* 240* CA 8.6 8.1* 8.4* < > 8.5 8.6 8.1* TP 5.9* 5.5* 5.6* -- -- -- -- ALB 1.9* 1.4* 1.4* -- -- -- -- TBIL 0.4 0.3 0.3 -- -- -- -- ALKP 97 73 67 -- -- -- -- AST 22 14* 18 -- -- -- -- ALT 21 17 16 -- -- -- -- < > = values in this interval not displayed. Recent Labs Lab 07/29/22 2235 08/01/22 0646 INR 1.1 1.2* Intake/Output Summary (Last 24 hours) at 08/05/2022 1306 Last data filed at 08/05/2022 0600 Gross per 24 hour Intake 1500 ml Output 3940 ml Net -2440 ml RADIOLOGY : REVIEWED MEDICATIONS Scheduled medications ??? amLODIPine 10 mg Oral Daily ??? carvedilol 12.5 mg Oral BID ??? cefepime 2 g Intravenous Q12H ??? enoxaparin 40 mg Subcutaneous 2 times per day ??? ferrous sulfate (65 mg elemental) 1 tablet Oral Daily with breakfast ??? insulin glargine 10 Units Subcutaneous BID ??? insulin lispro 0-8 Units Subcutaneous 4x Daily AC and at bedtime ??? insulin lispro 7 Units Subcutaneous TID WC ??? linezolid 600 mg Oral 2 times per day ??? normal saline 3-10 mL Intravenous BID ??? pantoprazole EC 40 mg Oral Daily ??? potassium chloride 40 mEq Oral Once Infusion PRN acetaminophen OR acetaminophen, albuterol sulfate HFA, hydrALAZINE, normal saline, ondansetron,perflutren lipid microsphere, polyethylene glycol ASSESSMENT /PLAN 31 years old female, morbidly obese history of diabetes, has not been on insulin for the last 1 year because of no insurance admitted to ICU with acute respiratory failure. Initially required BiPAP with oxygen up to 10 to 15 L. CTA chest showed dense patchy opacities right greater than left, she was started on broad-spectrum antibiotics and Bronchoscopy was done 07/31/2022. Bounce back to the ICU the same day she was downgraded on 07/31/2022 because of increasing oxygen requirements. Inflammatorywork-up ongoing and pulmonary is following the patient as well. She was again transferred to regular medical floor 08/02/2022 after improvement of her oxygen status. PLAN: #Multifocal pneumonia #Acute hypoxic respiratory failure -Symptomatically improved, oxygen requirements have come down. Ambulating without any significant shortness of breath. Chest x-ray with persistent infiltrates right greater than left -Remains on oxygen 1-2 L nasal cannula, wean off as able. We will do home O2 evaluation -MRSA nares positive on admission. Continue broad-spectrum antibiotics, will await culture results from her bronchoscopy. If her cultures remain negative, most likely can switch to oral antibiotics tomorrow. -Most of her autoimmune/inflammatory work-up has been negative. Being followed by pulmonary #Acute diastolic CHF exacerbation -Echo showed normal EF, elevated right atrial pressure. -Received IV Lasix 20 mg yesterday in addition to oral Lasix 20 mg. Urine output of about 5 L in 24hours. Appears comfortable, no respiratory distress. However still has bilateral lower extremity edema, improved from before. Due to worsening kidney function, will give diuretic holiday today #BOBBY, unknown if she has underlying CKD -Normal PTH. Creatinine elevated to 2 this morning. No UTI, unremarkable renal ultrasound. -Vancomycin/Zosyn changed to linezolid/cefepime. We will continue to avoid nephrotoxic medications. #Type 1 diabetes, uncontrolled -Has not taken insulin for the last 1 year, due to insurance issues. HbA1c elevated to 13. ContinueLantus 10 units twice daily, lispro to 7 units 3 times daily, low-dose sliding scale. Carb consistent diet. #Hypertension -Stop hydrochlorothiazide due to BOBBY as well as initiation of furosemide, continue amlodipine 10 mgdaily. Start Coreg 12.5 mg twice daily #Mixed JIAN/ACD -Start oral ferrous sulfate. #Possible EDD -Needs outpatient sleep study for formal diagnosis #Hypokalemia -Potassium replaced, repeat BMP tomorrow. DVT Prophylaxis: Subcutaneous Lovenox Code status: Full Code Disposition Chest x-ray looks worse than patient herself. We will try to wean her off O2 and try to switch to oral antibiotics tomorrow. We will also initiate low-dose Lasix tomorrow if kidney function is stable. Anticipate discharge next 2-3 Nae Sotelo MD 1:06 PM 08/05/2022 * Diandra Daly MD - 08/05/2022 9:53 AM CDT [facility] Pulmonary Progress Note SUBJECTIVE: Patient currently breathing comfortably at rest on room air. Little phlegm production. Denies any fevers or chills at this time. No significant culture results from bronchoscopic specimens. Chest x-ray remains unchanged with bilateral opacities. Allergies: No Known Allergies Current Facility-Administered Medications: ??? acetaminophen (TYLENOL) tablet 650 mg, 650 mg, Oral, Q4H PRN OR acetaminophen (TYLENOL) suppository 650 mg, 650 mg, Rectal, Q4H PRN, Tono Bejarano MD ??? albuterol sulfate HFA 108 (90 Base) MCG/ACT inhaler 2 puff, 2 puff, Inhalation, Q6H PRN, Tono Bejarano MD ??? amLODIPine (NORVASC) tablet 10 mg, 10 mg, Oral, Daily, Tono Bejarano MD, 10 mg at 08/05/22 0837 ??? carvedilol (COREG) tablet 12.5 mg, 12.5 mg, Oral, BID, Nae Sotelo MD, 12.5 mg at 08/05/22 0837 ??? ceFEPIme (MAXIPIME) 2 g in sodium chloride (PF) 0.9 % 10 mL IV, 2 g, Intravenous, Q12H, Nae Sotelo MD, 2 g at 08/04/22 9309 ??? enoxaparin (LOVENOX) 40 MG/0.4ML syringe 40 mg, 40 mg, Subcutaneous, 2 times per day, 40 mg at 08/05/22 0837 AND [COMPLETED] Place sequential compression device, , , Once AND [COMPLETED] Intermittent Pneumatic Compression Device Applied, , , Once AND Assess Sequential Compression Dev ice (Assess skin at a minimum of every shift), , , Q Shift AND Maintain Sequential Compression Device, , , Daily AND [COMPLETED] HIGH RISK FOR VTE, , , Once, Nae Wayne MD ??? ferrous sulfate (65 mg elemental) tablet 325 mg, 1 tablet, Oral, Daily with breakfast, Carrie Sotelo MD, 325 mg at 08/05/22835 ??? hydrALAZINE (APRESOLINE) injection 20 mg, 20 mg, Intravenous, Q6H PRN, Tono Bejarano MD, 20mg at 08/03/222321 ??? insulin glargine (LANTUS) injection 10 Units, 10 Units, Subcutaneous, BID, Tono Bejarano MD, 10 Units at 08/05/2237 ??? insulin lispro (HUMALOG) injection 0-8 Units, 0-8 Units, Subcutaneous, 4x Daily AC and at bedtime, Nae Sotelo MD, 5 Units at 08/05/22 0625 ??? insulin lispro (HUMALOG) injection 7 Units, 7 Units, Subcutaneous, TID WC, Nae Sotelo MD, 7 Units at 08/05/22836 ??? linezolid (ZYVOX) tablet 600 mg, 600 mg, Oral, 2 times per day, Nae Sotelo MD, 600 mg at 08/05/22835 ??? normal saline 0.9 % flush 3-10 mL, 3-10 mL, Intravenous, PRN, Tono Bejarano MD ??? normal saline 0.9 % flush 3-10 mL, 3-10 mL, Intravenous, BID, Nae Sotelo MD, 10 mL at 08/05/22 0838 ??? ondansetron (ZOFRAN) injection 4 mg, 4 mg, Intravenous, Q8H PRN, Alexis Woodward MD ??? pantoprazole EC (PROTONIX) tablet 40 mg, 40 mg, Oral, Daily, Nae Sotelo MD, 40 mg at 08/05/22 0836 ??? perflutren lipid microsphere (DEFINITY) injection 2 mL, 2 mL, Intravenous, ONCE PRN, Tono Bejarano MD ??? polyethylene glycol (GLYCOLAX) packet 17 g, 17 g, Oral, Daily PRN, Alexis Woodward MD ??? potassium chloride CR (KLOR-CON M) tablet 40 mEq, 40 mEq, Oral, Once, Nae Sotelo MD acetaminophen OR acetaminophen, albuterol sulfate HFA, hydrALAZINE, normal saline, ondansetron,perflutren lipid microsphere, polyethylene glycol Review of Systems Constitutional: Negative for chills, diaphoresis, fever, malaise/fatigue and weight loss. HENT: Negative for ear discharge, ear pain, hearing loss and tinnitus. Eyes: Negative for blurred vision, double vision and photophobia. Respiratory: Negative for cough, hemoptysis, sputum production, shortness of breath and wheezing. Cardiovascular: Negative for chest pain, palpitations, orthopnea, claudication, leg swelling and PND. Gastrointestinal: Negative for heartburn, nausea and vomiting. Genitourinary: Negative for urgency. Musculoskeletal: Negative for myalgias and neck pain. Neurological: Negative for dizziness, tingling, weakness and headaches. Endo/Heme/Allergies: Negative for environmental allergies. Does not bruise/bleed easily. Psychiatric/Behavioral: Negative for depression, substance abuse and suicidal ideas. OBJECTIVE: Blood pressure (!) 153/84, pulse 94, temperature 98.7 ??F (37.1 ??C), temperature source Oral, resp. rate 18, height 5' 7 (1.702 m), weight 128.1 kg (282 lb 6.6 oz), last menstrual period 07/08/2022, SpO2 96 %. Intake/Output Summary (Last 24 hours) at 08/05/2022 0953 Last data filed at 08/05/2022 0600 Gross per 24 hour Intake 2000 ml Output 4240 ml Net -2240 ml Physical Exam Constitutional: General: She is not in acute distress. Appearance: She is well-developed. She is not diaphoretic. HENT: Head: Normocephalic and atraumatic. Right Ear: External ear normal. Left Ear: External ear normal. Nose: Nose normal. Eyes: General: No scleral icterus. Right eye: No discharge. Left eye: No discharge. Conjunctiva/sclera: Conjunctivae normal. Pupils: Pupils are equal, round, and reactive to light. Neck: Thyroid: No thyromegaly. Vascular: No JVD. Trachea: No tracheal deviation. Cardiovascular: Rate and Rhythm: Normal rate and regular rhythm. Heart sounds: Normal heart sounds. No murmur heard. No friction rub. No gallop. Pulmonary: Effort: Pulmonary effort is normal. No respiratory distress. Breath sounds: Normal breath sounds. No stridor. No wheezing or rales. Chest: Chest wall: No tenderness. Abdominal: General: Bowel sounds are normal. There is no distension. Palpations: Abdomen is soft. There is no mass. Tenderness: There is no abdominal tenderness. There is no guarding or rebound. Hernia: No hernia is present. Musculoskeletal: General: No tenderness or deformity. Normal range of motion. Cervical back: Normal range of motion and neck supple. Lymphadenopathy: Cervical: No cervical adenopathy. Skin: General: Skin is warm and dry. Coloration: Skin is not pale. Findings: No erythema or rash. Neurological: Mental Status: She is alert. Cranial Nerves: No cranial nerve deficit. Motor: No abnormal muscle tone. Coordination: Coordination normal. Deep Tendon Reflexes: Reflexes are normal and symmetric. Reflexes normal. Psychiatric: Behavior: Behavior normal. DIAGNOSTIC: No results displayed because visit has over 200 results. ASSESSMENT & PLAN: Patient Active Problem List Diagnosis ??? Acute hypoxemic respiratory failure (CMS/HCC) ??? Pulmonary infiltrate ??? Morbid obesity (CMS/HCC) Seem to continue improving with current antimicrobial therapy. Would plan to wean off oxygen and ambulate in room. Pulmonary toilet with incentive spirometry and [employer]. Discontinue noninvasive ventilation. Continue with diuretics consider further evaluation of grossly elevated BNP with cardiac consultation. If bronchoscopic specimens do not demonstrate any significant culture growth and she isweaned off oxygen consider switching to oral antimicrobial therapy tomorrow. DIANDRA DALY MD * Neelam Marcus RN - 08/05/2022 9:38 AM CDT Problem: Gas Exchange - Impaired Goal: Adequate oxygenation Outcome: Progressing Problem: Infection - Risk of, Septic Shock Goal: Absence of infection signs and symptoms Outcome: Progressing Problem: Infection - Risk of, Urinary Catheter-Associated Urinary Tract Infection Goal: Absence of infection signs and symptoms Outcome: Progressing Problem: Mental Status - Risk of, Impaired Goal: Mental status restored to baseline Outcome: Progressing Problem: Pain - Acute Goal: Achieve acceptable pain level Outcome: Progressing Goal: Reduced pain sensation Outcome: Progressing Problem: Skin Integrity - Risk of, Impaired Goal: Skin integrity intact Outcome: Progressing Problem: Tissue Perfusion - Cardiopulmonary, Altered Goal: Circulatory function within specified parameters Outcome: Progressing Problem: Venous Thromboembolism - Risk of Goal: Absence of deep venous thrombosis Outcome: Progressing Problem: Discharge Planning Goal: Knowledge of discharge instructions Outcome: Progressing Problem: Reduced risk for falls/injury Goal: Reduced Risk for Falls/Injury Outcome: Progressing Goal: Reduced Risk of Confusion (Acute vs Chronic) Outcome: Progressing Goal: Reduced Risk of Symptomatic Depression Outcome: Progressing Goal: Reduced Risk of Altered Elimination Outcome: Progressing Goal: Reduced Risk of Dizziness/Vertigo/Balance Outcome: Progressing Goal: Reduced Risk of Polypharmacy Outcome: Progressing Problem: Discharge Planning Goal: Knowledge of discharge instructions Outcome: Progressing Problem: Pain control/comfort Goal: Promote pain control/comfort Outcome: Progressing Problem: Skin integrity, Impaired-wound Goal: Absence of new skin breakdown Outcome: Progressing Goal: Evidence of wound healing Outcome: Progressing Problem: Skin integrity, Impaired-pressure injury/ulcer Goal: Absence of new skin breakdown Outcome: Progressing Goal: Evidence of pressure injury/ulcer healing Outcome: Progressing Problem: Skin integrity, at risk Goal: Absence of new skin breakdown Outcome: Progressing Problem: Moisture associated skin impairment Goal: Reduce moisture exposure Outcome: Progressing Goal: Evidence of wound healing Outcome: Progressing Goal: Evidence of pressure injury/ulcer healing Outcome: Progressing Goal: Absence of new skin breakdown Outcome: Progressing Problem: Discharge Planning Goal: Knowledge of discharge instructions Outcome: Progressing Problem: Injury - Risk of, Abnormal Serum Glucose Level Goal: Glucose level within specified parameters Outcome: Progressing Problem: Pain Goal: Patient's pain/discomfort is manageable Description: Assess and monitor patient's pain using appropriate pain scale. Collaborate with interdisciplinary team and initiate plan and interventions as ordered. Re-assess patient's pain level 30 - 60 minutes after pain management intervention. Outcome: Progressing Problem: Safety Goal: Patient will be injury free during hospitalization Description: Assess and monitor vitals signs, neurological status including level of consciousness and orientation. Assess patient's risk for falls and implement fall prevention plan of care and interventions per hospital policy. Ensure arm band on, uncluttered walking paths in room, adequate room lighting, call light and overbed table within reach, bed in low position, wheels locked, side rails up per policy, and non-skid footwear provided. Outcome: Progressing Problem: Daily Care Goal: Daily care needs are met Description: Assess and monitor ability to perform self care and identify potential discharge needs. Outcome: Progressing Problem: Psychosocial Needs Goal: Demonstrates ability to cope with hospitalization/illness Description: Assess and monitor patients ability to cope with his/her illness. Outcome: Progressing Goal: Collaborate with patient/family/caregiver to identify patient specific goals for this hospitalization Outcome: Progressing Problem: Discharge Barriers Goal: Patient's discharge needs are met Description: Collaborate with interdisciplinary team and initiate plans and interventions as needed. Outcome: Progressing Problem: Infection - Risk of, Central Venous Catheter-Associated Bloodstream Infection Goal: Absence of Central Venous Catheter Associated Bloodstream Infection Signs and Symptoms Outcome: Progressing * Karley Cruz RN - 08/04/2022 9:55 PM CDT Problem: Gas Exchange - Impaired Goal: Adequate oxygenation Outcome: Progressing Problem: Infection - Risk of, Septic Shock Goal: Absence of infection signs and symptoms Outcome: Progressing Problem: Infection - Risk of, Urinary Catheter-Associated Urinary Tract Infection Goal: Absence of infection signs and symptoms Outcome: Progressing Problem: Mental Status - Risk of, Impaired Goal: Mental status restored to baseline Outcome: Progressing Problem: Pain - Acute Goal: Achieve acceptable pain level Outcome: Progressing Goal: Reduced pain sensation Outcome: Progressing Problem: Skin Integrity - Risk of, Impaired Goal: Skin integrity intact Outcome: Progressing Problem: Tissue Perfusion - Cardiopulmonary, Altered Goal: Circulatory function within specified parameters Outcome: Progressing Problem: Venous Thromboembolism - Risk of Goal: Absence of deep venous thrombosis Outcome: Progressing Problem: Discharge Planning Goal: Knowledge of discharge instructions Outcome: Progressing Problem: Reduced risk for falls/injury Goal: Reduced Risk for Falls/Injury Outcome: Progressing Goal: Reduced Risk of Confusion (Acute vs Chronic) Outcome: Progressing Goal: Reduced Risk of Symptomatic Depression Outcome: Progressing Goal: Reduced Risk of Altered Elimination Outcome: Progressing Goal: Reduced Risk of Dizziness/Vertigo/Balance Outcome: Progressing Goal: Reduced Risk of Polypharmacy Outcome: Progressing Problem: Discharge Planning Goal: Knowledge of discharge instructions Outcome: Progressing Problem: Pain control/comfort Goal: Promote pain control/comfort Outcome: Progressing Problem: Skin integrity, Impaired-wound Goal: Absence of new skin breakdown Outcome: Progressing Goal: Evidence of wound healing Outcome: Progressing Problem: Skin integrity, Impaired-pressure injury/ulcer Goal: Absence of new skin breakdown Outcome: Progressing Goal: Evidence of pressure injury/ulcer healing Outcome: Progressing Problem: Skin integrity, at risk Goal: Absence of new skin breakdown Outcome: Progressing Problem: Moisture associated skin impairment Goal: Reduce moisture exposure Outcome: Progressing Goal: Evidence of wound healing Outcome: Progressing Goal: Evidence of pressure injury/ulcer healing Outcome: Progressing Goal: Absence of new skin breakdown Outcome: Progressing Problem: Discharge Planning Goal: Knowledge of discharge instructions Outcome: Progressing Problem: Injury - Risk of, Abnormal Serum Glucose Level Goal: Glucose level within specified parameters Outcome: Progressing Problem: Pain Goal: Patient's pain/discomfort is manageable Description: Assess and monitor patient's pain using appropriate pain scale. Collaborate with interdisciplinary team and initiate plan and interventions as ordered. Re-assess patient's pain level 30 - 60 minutes after pain management intervention. Outcome: Progressing Problem: Safety Goal: Patient will be injury free during hospitalization Description: Assess and monitor vitals signs, neurological status including level of consciousness and orientation. Assess patient's risk for falls and implement fall prevention plan of care and interventions per hospital policy. Ensure arm band on, uncluttered walking paths in room, adequate room lighting, call light and overbed table within reach, bed in low position, wheels locked, side rails up per policy, and non-skid footwear provided. Outcome: Progressing Problem: Daily Care Goal: Daily care needs are met Description: Assess and monitor ability to perform self care and identify potential discharge needs. Outcome: Progressing Problem: Psychosocial Needs Goal: Demonstrates ability to cope with hospitalization/illness Description: Assess and monitor patients ability to cope with his/her illness. Outcome: Progressing Goal: Collaborate with patient/family/caregiver to identify patient specific goals for this hospitalization Outcome: Progressing Problem: Discharge Barriers Goal: Patient's discharge needs are met Description: Collaborate with interdisciplinary team and initiate plans and interventions as needed. Outcome: Progressing Problem: Infection - Risk of, Central Venous Catheter-Associated Bloodstream Infection Goal: Absence of Central Venous Catheter Associated Bloodstream Infection Signs and Symptoms Outcome: Progressing * Eunice Denney RN - 08/04/2022 6:00 PM CDTSummary: Pt doing well and is hoping to discharge home with assist of sister in the next few days Problem: Gas Exchange - Impaired Goal: Adequate oxygenation 08/04/20221958 by Eunice Denney RN Outcome: Progressing 08/04/20221958 by Eunice Denney RN Outcome: Progressing Problem: Infection - Risk of, Septic Shock Goal: Absence of infection signs and symptoms 08/04/20221958 by Eunice Denney RN Outcome: Progressing 08/04/20221958 by Eunice Denney RN Outcome: Progressing Problem: Infection - Risk of, Urinary Catheter-Associated Urinary Tract Infection Goal: Absence of infection signs and symptoms 08/04/20221958 by Eunice Denney RN Outcome: Progressing 08/04/20221958 by Eunice Denney RN Outcome: Progressing Problem: Pain - Acute Goal: Achieve acceptable pain level 08/04/20221958 by Eunice Denney RN Outcome: Progressing 08/04/20221958 by Eunice Denney RN Outcome: Progressing Goal: Reduced pain sensation 08/04/20221958 by Eunice Denney RN Outcome: Progressing 08/04/20221958 by Eunice Denney RN Outcome: Progressing Problem: Skin Integrity - Risk of, Impaired Goal: Skin integrity intact 08/04/20221958 by Eunice Denney RN Outcome: Progressing 08/04/20221958 by Eunice Denney RN Outcome: Progressing Problem: Venous Thromboembolism - Risk of Goal: Absence of deep venous thrombosis 08/04/20221958 by Eunice Denney RN Outcome: Progressing 08/04/20221958 by Eunice Denney RN Outcome: Progressing Problem: Reduced risk for falls/injury Goal: Reduced Risk for Falls/Injury 08/04/20221958 by Eunice Denney RN Outcome: Progressing 08/04/20221958 by Eunice Denney RN Outcome: Progressing Goal: Reduced Risk of Confusion (Acute vs Chronic) 08/04/20221958 by Eunice Denney RN Outcome: Progressing 08/04/20221958 by Eunice Denney RN Outcome: Progressing Goal: Reduced Risk of Symptomatic Depression 08/04/20221958 by Eunice Denney RN Outcome: Progressing 08/04/20221958 by Eunice Denney RN Outcome: Progressing Goal: Reduced Risk of Altered Elimination 08/04/20221958 by Eunice Denney RN Outcome: Progressing 08/04/20221958 by Eunice Denney RN Outcome: Progressing Goal: Reduced Risk of Dizziness/Vertigo/Balance 08/04/20221958 by Eunice Denney RN Outcome: Progressing 08/04/20221958 by Eunice Denney RN Outcome: Progressing Goal: Reduced Risk of Polypharmacy 08/04/20221958 by Eunice Denney RN Outcome: Progressing 08/04/20221958 by Eunice Denney RN Outcome: Progressing * Lexus Deluna MD - 08/04/2022 12:51 PM CDT Pulmonary Progress Note Leeroy Canales is a 31-year-old female patient. Subjective Feeling better. She didn't use BiPAP. Slept well. In fact, the pateint said that she took her oxygen off last night and felt just fine. No cough. Improving SOB. Still has a lot of LE swelling. Objective CXR my read is unchanged opacities. Low lung volumes Principal Problem: Acute hypoxemic respiratory failure (CMS/HCC) SNOMED CT(R): ACUTE HYPOXEMIC RESPIRATORY FAILURE Active Problems: Pulmonary infiltrate SNOMED CT(R): RADIOLOGIC INFILTRATE OF LUNG Morbid obesity (CMS/HCC) SNOMED CT(R): MORBID OBESITY Past Medical History: Diagnosis Date ??? Diabetes mellitus (CMS/HCC) Current Facility-Administered Medications Medication Dose Route Frequency Provider Last Rate Last Admin ??? acetaminophen (TYLENOL) tablet 650 mg 650 mg Oral Q4H PRN Tono Bejarano MD Or ??? acetaminophen (TYLENOL) suppository 650 mg 650 mg Rectal Q4H PRN Tono Bejarano MD ??? albuterol sulfate HFA 108 (90 Base) MCG/ACT inhaler 2 puff 2 puff Inhalation Q6H PRN Tono Bejarano MD ??? amLODIPine (NORVASC) tablet 10 mg 10 mg Oral Daily Tono Bejarano MD 10 mg at 08/04/22938 ??? carvedilol (COREG) tablet 6.25 mg 6.25 mg Oral BID Nae Sotelo MD 6.25 mg at 08/04/22938 ??? ceFEPIme (MAXIPIME) 2 g in sodium chloride (PF) 0.9 % 10 mL IV 2 g Intravenous Q12H Nae Sotelo MD 2 g at 08/04/22 120 ??? enoxaparin (LOVENOX) 40 MG/0.4ML syringe 40 mg 40 mg Subcutaneous 2 times per day Tono Bejarano MD 40 mg at 08/04/22938 ??? ferrous sulfate (65 mg elemental) tablet 325 mg 1 tablet Oral Daily with breakfast Nae Sotelo MD 325 mg at 08/04/22938 ??? furosemide (LASIX) injection 20 mg 20 mg Intravenous Once Nae Sotelo MD ??? furosemide (LASIX) tablet 20 mg 20 mg Oral Daily Nae Sotelo MD 20 mg at 08/04/22938 ??? hydrALAZINE (APRESOLINE) injection 20 mg 20 mg Intravenous Q6H PRN Tono Bejarano MD 20 mg at 08/03/222321 ??? insulin glargine (LANTUS) injection 10 Units 10 Units Subcutaneous BID Tono Bejarano MD 10 Units at 08/04/2238 ??? insulin lispro (HUMALOG) injection 0-8 Units 0-8 Units Subcutaneous 4x Daily AC and at bedtime Nae Sotelo MD 2 Units at 08/04/22 120 ??? insulin lispro (HUMALOG) injection 7 Units 7 Units Subcutaneous TID WC Nae Sotelo MD 7 Units at 08/04/22 1206 ??? linezolid (ZYVOX) tablet 600 mg 600 mg Oral 2 times per day Nae Sotelo MD 600 mg at 08/04/2239 ??? normal saline 0.9 % flush 3-10 mL 3-10 mL Intravenous PRN Tono Bejarano MD ??? normal saline 0.9 % flush 3-10 mL 3-10 mL Intravenous BID Nae Sotelo MD 10 mL at 08/04/22 0940 ??? ondansetron (ZOFRAN) injection 4 mg 4 mg Intravenous Q8H PRN Alexis Woodward MD ??? pantoprazole EC (PROTONIX) tablet 40 mg 40 mg Oral Daily Nae Sotelo MD 40 mg at 08/04/22 0939 ??? perflutren lipid microsphere (DEFINITY) injection 2 mL 2 mL Intravenous ONCE PRN Tono Bejarano MD ??? polyethylene glycol (GLYCOLAX) packet 17 g 17 g Oral Daily PRN Alexis Woodward MD ??? potassium chloride (KLOR-CON) packet 2 packet 40 mEq Oral Once Nae Sotelo MD Review of Systems Constitutional: Negative for fever. HENT: Negative. Eyes: Negative. Respiratory: Positive for shortness of breath. Negative for cough and sputum production. Cardiovascular: Positive for chest pain and leg swelling. Gastrointestinal: Negative for abdominal pain and diarrhea. Genitourinary: Negative. Musculoskeletal: Negative. Skin: Negative. Neurological: Negative. Endo/Heme/Allergies: Negative. Psychiatric/Behavioral: Negative. Blood pressure (!) 159/94, pulse 96, temperature 98.1 ??F (36.7 ??C), temperature source Oral, resp. rate 20, height 5' 7 (1.702 m), weight 128.1 kg (282 lb 6.6 oz), last menstrual period 07/08/2022, SpO2 94 %. Physical Exam Constitutional: Appearance: Normal appearance. HENT: Head: Normocephalic and atraumatic. Mouth/Throat: Mouth: Mucous membranes are moist. Pharynx: Oropharynx is clear. Eyes: Pupils: Pupils are equal, round, and reactive to light. Cardiovascular: Rate and Rhythm: Normal rate and regular rhythm. Pulmonary: Effort: Pulmonary effort is normal. No respiratory distress. Breath sounds: Normal breath sounds. No wheezing or rales. Abdominal: General: There is no distension. Palpations: Abdomen is soft. Tenderness: There is no abdominal tenderness. Musculoskeletal: Left lower leg: Edema present. Lymphadenopathy: Cervical: No cervical adenopathy. Skin: General: Skin is warm and dry. Neurological: General: No focal deficit present. Mental Status: She is alert and oriented to person, place, and time. Psychiatric: Mood and Affect: Mood normal. Recent Labs Lab 07/29/22 1325 07/30/22 0510 08/03/22 0348 WBC 12.8* < > 9.7 RBC 4.24 < > 3.56* HGB 11.8* < > 9.7* HCT 37.7 < > 31.9* MCV 88.9 < > 89.6 MCH 27.8 < > 27.2 MCHC 31.3 < > 30.4* PLT 423* < > 506* RDW 14.0 < > 13.6 MPV 10.7 < > 10.3 PERNEU 81.7* -- -- PERLYM 8.1* -- -- PERMON 9.7 -- -- NEUC -- < > 6.20 LYMC 1.04 < > 2.02 MONOC 1.24 < > 1.08 EOSC 0.03 < > 0.37 BASOC 0.01 < > 0.02 < > = values in this interval not displayed. SODIUM Date Value Ref Range Status 08/04/2022 142 136 - 145 MMOL/L Final POTASSIUM Date Value Ref Range Status 08/04/2022 3.3 (L) 3.5 - 5.1 MMOL/L Final CHLORIDE S/P/B Date Value Ref Range Status 08/04/2022 110 (H) 98 - 107 MMOL/L Final CO2 Date Value Ref Range Status 08/04/2022 26.6 21.0 - 32.0 MMOL/L Final ANION GAP Date Value Ref Range Status 08/04/2022 5.4 5.0 - 15.0 MMOL/L Final BUN Date Value Ref Range Status 08/04/2022 15 7 - 18 MG/DL Final CREATININE S/P/B Date Value Ref Range Status 08/04/2022 1.70 (H) 0.55 - 1.02 MG/DL Final BUN CREATININE RATIO Date Value Ref Range Status 07/29/2022 9.0 6 - 26 Final GLUCOSE Date Value Ref Range Status 08/04/2022 123 (H) 74 - 106 MG/DL Final CALCIUM Date Value Ref Range Status 08/04/2022 8.6 8.5 - 10.1 MG/DL Final Impression Pneumonia Acute hypoxic respiratory failure-improving Diabetes ??BOBBY Diastolic CHF Plan Clinically improving on the antibiotics. BAL still not growing anything of concern. Oxygenation is improving, and she's set to do a home O2 oxygen eval to formally assess her needs. She seems hypervolemic on exam today and proBNP is 1200, and I've discussed with Dr. Sotelo. He's going to give her more aggressive diuresis and a dose of IV lasix today. At one point, an inflammatory etiology of her pulmonary infiltrates was contemplated, but that seems less likely now since she's improving with antibiotics. I'll set her up with a repeat CT scan in about 6 weeks to monitor things further. Dr. Daly assumes care Friday morning for pulmonary. ?? Time spent: 35 minutes, with >50% in counseling/coordination of care. LEXUS DELUNA MD * Nae Sotelo MD - 08/04/2022 10:54 AM CDT Progress note SUBJECTIVE: Dyspnea on exertion is improved, remains on low-flow oxygen nasal cannula Denies any cough or phlegm production No acute events overnight. Chief Complaint: Follow-up of pneumonia, acute respiratory failure Review of Systems Constitutional: Negative for chills and fever. HENT: Negative for congestion and sore throat. Respiratory: Positive for shortness of breath. Negative for cough. Cardiovascular: Positive for leg swelling. Negative for chest pain. Gastrointestinal: Negative for abdominal pain, constipation, diarrhea, nausea and vomiting. Genitourinary: Negative for dysuria, frequency and urgency. Musculoskeletal: Negative for myalgias. Neurological: Negative for speech change and focal weakness. Psychiatric/Behavioral: Negative for depression. OBJECTIVE Blood pressure (!) 159/94, pulse 96, temperature 98.1 ??F (36.7 ??C), temperature source Oral, resp. rate 20, height 5' 7 (1.702 m), weight 128.1 kg (282 lb 6.6 oz), last menstrual period 07/08/2022, SpO2 94 %. Physical Exam Constitutional: Appearance: She is obese. She is ill-appearing. Cardiovascular: Rate and Rhythm: Normal rate and regular rhythm. Heart sounds: No murmur heard. Pulmonary: Effort: Pulmonary effort is normal. No respiratory distress. Breath sounds: No wheezing. Abdominal: General: Abdomen is flat. Bowel sounds are normal. There is no distension. Tenderness: There is no abdominal tenderness. Musculoskeletal: Right lower leg: Edema present. Left lower leg: Edema present. Skin: General: Skin is warm. Neurological: General: No focal deficit present. Mental Status: She is oriented to person, place, and time. Mental status is at baseline. Cranial Nerves: No cranial nerve deficit. LABS:. Recent Labs 08/03/22 0348 WBC 9.7 HGB 9.7* HCT 31.9* MCV 89.6 PLT 506* RBC 3.56* Recent Labs Lab 07/29/22 1325 07/30/22 0510 07/31/22 0450 08/01/22 0646 08/03/22 0348 08/04/22 0446 NA 136 140 140 140 141 142 K 3.7 3.5 3.3* 3.8 3.3* 3.3* CL 105 108* 108* 110* 109* 110* CO2 26.6 26.3 27.6 24.0 26.8 26.6 AGAP 4.4* 5.7 4.4* 6.0 5.2 5.4 BUN 12 14 18 17 20* 15 CR 1.34* 1.58* 1.54* 1.54* 1.80* 1.70* BUNCREATININ 9.0 -- -- -- -- -- GLU 303* 307* 84 128* 83 123* CA 8.6 8.1* 8.4* 8.7 8.5 8.6 TP 5.9* 5.5* 5.6* -- -- -- ALB 1.9* 1.4* 1.4* -- -- -- TBIL 0.4 0.3 0.3 -- -- -- ALKP 97 73 67 -- -- -- AST 22 14* 18 -- -- -- ALT 21 17 16 -- -- -- Recent Labs Lab 07/29/22 2235 08/01/22 0646 INR 1.1 1.2* Intake/Output Summary (Last 24 hours) at 08/04/2022 1054 Last data filed at 08/04/2022 1034 Gross per 24 hour Intake 1380 ml Output 300 ml Net 1080 ml RADIOLOGY : REVIEWED MEDICATIONS Scheduled medications ??? amLODIPine 10 mg Oral Daily ??? carvedilol 6.25 mg Oral BID ??? cefepime 2 g Intravenous Q12H ??? enoxaparin 40 mg Subcutaneous 2 times per day ??? ferrous sulfate (65 mg elemental) 1 tablet Oral Daily with breakfast ??? furosemide 20 mg Oral Daily ??? insulin glargine 10 Units Subcutaneous BID ??? insulin lispro 0-8 Units Subcutaneous 4x Daily AC and at bedtime ??? insulin lispro 7 Units Subcutaneous TID WC ??? linezolid 600 mg Oral 2 times per day ??? normal saline 3-10 mL Intravenous BID ??? pantoprazole EC 40 mg Oral Daily ??? potassium chloride 40 mEq Oral Q4H Infusion PRN acetaminophen OR acetaminophen, albuterol sulfate HFA, hydrALAZINE, normal saline, ondansetron,perflutren lipid microsphere, polyethylene glycol ASSESSMENT /PLAN 31 years old female, morbidly obese history of diabetes, has not been on insulin for the last 1 year because of no insurance admitted to ICU with acute respiratory failure. Initially required BiPAP with oxygen up to 10 to 15 L. CTA chest showed dense patchy opacities right greater than left, she was started on broad-spectrum antibiotics and Bronchoscopy was done 07/31/2022. Bounce back to the ICU the same day she was downgraded on 07/31/2022 because of increasing oxygen requirements. Inflammatorywork-up ongoing and pulmonary is following the patient as well. She was again transferred to regular medical floor 08/02/2022 after improvement of her oxygen status. PLAN: #Multifocal pneumonia #Acute hypoxic respiratory failure -Symptomatically improved, oxygen requirements have come down. Ambulating without any significant shortness of breath. Chest x-ray with persistent infiltrates right greater than left, will repeat chest x-ray tomorrow. -MRSA nares positive on admission. Continue broad-spectrum antibiotics, will await culture results from her bronchoscopy -Remains on oxygen 2 to 4 L nasal cannula, wean off as able. We will do home O2 evaluation tomorrow -Most of her autoimmune/inflammatory work-up has been negative. ANCA, anti-CCP still pending. Beingfollowed by pulmonary #Acute diastolic CHF exacerbation -Echo showed normal EF, elevated right atrial pressure. -Received IV Lasix initially, will switch to oral Lasix 20 mg daily. Nurse advised strict input/output monitoring. #BOBBY, unknown if she has underlying CKD -Normal PTH. Creatinine elevated to 1.7 this morning. Mildly positive UA but patient is asymptomatic. We will check urine cultures. Unremarkable renal ultrasound -We will change vancomycin/Zosyn to linezolid/cefepime. We will continue to avoid nephrotoxic medications. #Type 1 diabetes, uncontrolled -Has not taken insulin for the last 1 year, due to insurance issues. HbA1c elevated to 13. ContinueLantus 10 units twice daily, lispro to 7 units 3 times daily, low-dose sliding scale. Carb consistent diet. #Hypertension -Stop hydrochlorothiazide due to BOBBY as well as initiation of furosemide, continue amlodipine 10 mgdaily. Start Coreg 6.25 mg twice daily #Mixed JIAN/ACD -Start oral ferrous sulfate. #Possible EDD -Needs outpatient sleep study for formal diagnosis #Hypokalemia -Potassium replaced, repeat BMP tomorrow. DVT Prophylaxis: Subcutaneous Lovenox Code status: Full Code Nae Sotelo MD 10:54 AM 08/04/2022 * Violeta Ramirez RN - 08/03/2022 11:51 PM CDT Problem: Gas Exchange - Impaired Goal: Adequate oxygenation Outcome: Progressing Problem: Tissue Perfusion - Cardiopulmonary, Altered Goal: Circulatory function within specified parameters Outcome: Progressing Problem: Venous Thromboembolism - Risk of Goal: Absence of deep venous thrombosis Outcome: Progressing Problem: Infection - Risk of, Central Venous Catheter-Associated Bloodstream Infection Goal: Absence of Central Venous Catheter Associated Bloodstream Infection Signs and Symptoms Outcome: Progressing * Lexus Deluna MD - 08/03/2022 3:15 PM CDT Pulmonary Progress Note Leeroy Canales is a 31-year-old female patient. Subjective Feeling better. Didn't use the BiPAP last night. Oxygen has been weaned down to 2 L/min now. Feeling less SOB and not coughing much. Objective Principal Problem: Acute hypoxemic respiratory failure (CMS/HCC) SNOMED CT(R): ACUTE HYPOXEMIC RESPIRATORY FAILURE Active Problems: Pulmonary infiltrate SNOMED CT(R): RADIOLOGIC INFILTRATE OF LUNG Morbid obesity (CMS/HCC) SNOMED CT(R): MORBID OBESITY Past Medical History: Diagnosis Date ??? Diabetes mellitus (CMS/HCC) Current Facility-Administered Medications Medication Dose Route Frequency Provider Last Rate Last Admin ??? acetaminophen (TYLENOL) tablet 650 mg 650 mg Oral Q4H PRN Tono Bejarano MD Or ??? acetaminophen (TYLENOL) suppository 650 mg 650 mg Rectal Q4H PRN Tono Bejarano MD ??? albuterol sulfate HFA 108 (90 Base) MCG/ACT inhaler 2 puff 2 puff Inhalation Q6H PRN Tono Bejarano MD ??? amLODIPine (NORVASC) tablet 10 mg 10 mg Oral Daily Tono Bejarano MD 10 mg at 08/03/22 0813 ??? ceFEPIme (MAXIPIME) 2 g in sodium chloride (PF) 0.9 % 10 mL IV 2 g Intravenous Q12H Nae Sotelo MD 2 g at 08/03/22 1159 ??? enoxaparin (LOVENOX) 40 MG/0.4ML syringe 40 mg 40 mg Subcutaneous 2 times per day Tono Bejarano MD 40 mg at 08/03/22 0813 ??? furosemide (LASIX) tablet 20 mg 20 mg Oral Daily Nae Sotelo MD 20 mg at 08/03/22 1104 ??? hydrALAZINE (APRESOLINE) injection 20 mg 20 mg Intravenous Q6H PRN Tono Bejarano MD ??? insulin glargine (LANTUS) injection 10 Units 10 Units Subcutaneous BID Tono Bejarano MD 10 Units at 08/03/22 0812 ??? insulin lispro (HUMALOG) injection 0-8 Units 0-8 Units Subcutaneous 4x Daily AC and at bedtime Nae Sotelo MD ??? insulin lispro (HUMALOG) injection 10 Units 10 Units Subcutaneous TID WC Nae Sotelo MD 10 Units at 08/03/22 0812 ??? linezolid (ZYVOX) tablet 600 mg 600 mg Oral 2 times per day Nae Sotelo MD 600 mg at 08/03/22 1155 ??? normal saline 0.9 % flush 3-10 mL 3-10 mL Intravenous PRN Tono Bejarano MD ??? normal saline 0.9 % flush 3-10 mL 3-10 mL Intravenous BID Nae Sotelo MD ??? ondansetron (ZOFRAN) injection 4 mg 4 mg Intravenous Q8H PRN Alexis Woodward MD ??? pantoprazole EC (PROTONIX) tablet 40 mg 40 mg Oral Daily Nae Sotelo MD 40 mg at 08/03/22 0813 ??? perflutren lipid microsphere (DEFINITY) injection 2 mL 2 mL Intravenous ONCE PRN Tono Bejarano MD ??? polyethylene glycol (GLYCOLAX) packet 17 g 17 g Oral Daily PRN Alexis Woodward MD Review of Systems Constitutional: Negative. HENT: Negative. Eyes: Negative. Respiratory: Positive for cough and shortness of breath. Negative for sputum production. Cardiovascular: Negative. Gastrointestinal: Negative for abdominal pain and diarrhea. Genitourinary: Negative. Musculoskeletal: Negative. Skin: Negative. Neurological: Negative. Endo/Heme/Allergies: Negative. Psychiatric/Behavioral: Negative. Blood pressure 127/79, pulse 93, temperature 98.6 ??F (37 ??C), temperature source Oral, resp. rate17, height 5' 7 (1.702 m), weight 128 kg (282 lb 3.2 oz), last menstrual period 07/08/2022, SpO2 98 %. Physical Exam Constitutional: Appearance: Normal appearance. She is obese. HENT: Head: Normocephalic and atraumatic. Nose: No rhinorrhea. Mouth/Throat: Mouth: Mucous membranes are moist. Eyes: Pupils: Pupils are equal, round, and reactive to light. Cardiovascular: Rate and Rhythm: Normal rate and regular rhythm. Pulmonary: Effort: Pulmonary effort is normal. No respiratory distress. Breath sounds: No wheezing, rhonchi or rales. Abdominal: General: Abdomen is flat. There is no distension. Tenderness: There is no abdominal tenderness. Musculoskeletal: Cervical back: Normal range of motion. Left lower leg: Edema present. Neurological: General: No focal deficit present. Mental Status: She is alert and oriented to person, place, and time. Psychiatric: Mood and Affect: Mood normal. Recent Labs Lab 07/29/22 1325 07/30/22 0510 08/03/22 0348 WBC 12.8* < > 9.7 RBC 4.24 < > 3.56* HGB 11.8* < > 9.7* HCT 37.7 < > 31.9* MCV 88.9 < > 89.6 MCH 27.8 < > 27.2 MCHC 31.3 < > 30.4* PLT 423* < > 506* RDW 14.0 < > 13.6 MPV 10.7 < > 10.3 PERNEU 81.7* -- -- PERLYM 8.1* -- -- PERMON 9.7 -- -- NEUC -- < > 6.20 LYMC 1.04 < > 2.02 MONOC 1.24 < > 1.08 EOSC 0.03 < > 0.37 BASOC 0.01 < > 0.02 < > = values in this interval not displayed. SODIUM Date Value Ref Range Status 08/03/2022 141 136 - 145 MMOL/L Final POTASSIUM Date Value Ref Range Status 08/03/2022 3.3 (L) 3.5 - 5.1 MMOL/L Final CHLORIDE S/P/B Date Value Ref Range Status 08/03/2022 109 (H) 98 - 107 MMOL/L Final CO2 Date Value Ref Range Status 08/03/2022 26.8 21.0 - 32.0 MMOL/L Final ANION GAP Date Value Ref Range Status 08/03/2022 5.2 5.0 - 15.0 MMOL/L Final BUN Date Value Ref Range Status 08/03/2022 20 (H) 7 - 18 MG/DL Final CREATININE S/P/B Date Value Ref Range Status 08/03/2022 1.80 (H) 0.55 - 1.02 MG/DL Final BUN CREATININE RATIO Date Value Ref Range Status 07/29/2022 9.0 6 - 26 Final GLUCOSE Date Value Ref Range Status 08/03/2022 83 74 - 106 MG/DL Final CALCIUM Date Value Ref Range Status 08/03/2022 8.5 8.5 - 10.1 MG/DL Final Impression Pneumonia Acute hypoxic respiratory failure-improving Diabetes ??BOBBY Plan She's clinically Improving with antibiotics. I don't think we need steroids on her. Now on Cefepimeand linezolid due to her BOBBY. BAL still not growning anything concerning, just alpha strep. Oxygen is being weaned, now on 2 L/min. I'll repeat CXR on Friday. Please call if anything comes up tomorrow. Dr. Daly assumes care Friday morning for pulmonary. ?? Time spent: 35 minutes, with >50% in counseling/coordination of care. LEXUS DELUNA MD * Nae Sotelo MD - 08/03/2022 11:36 AM CDT Progress note SUBJECTIVE: Shortness of breath is improved Using low-flow oxygen, Did shower this morning and was not winded or short of breath No acute events overnight. Chief Complaint: Follow-up of pneumonia, acute respiratory failure Review of Systems Constitutional: Negative for chills and fever. HENT: Negative for congestion and sore throat. Respiratory: Positive for shortness of breath. Negative for cough. Cardiovascular: Positive for leg swelling. Negative for chest pain. Gastrointestinal: Negative for abdominal pain, constipation, diarrhea, nausea and vomiting. Genitourinary: Negative for dysuria, frequency and urgency. Musculoskeletal: Negative for myalgias. Neurological: Negative for speech change and focal weakness. Psychiatric/Behavioral: Negative for depression. OBJECTIVE Blood pressure 127/79, pulse 93, temperature 98.6 ??F (37 ??C), temperature source Oral, resp. rate17, height 5' 7 (1.702 m), weight 128 kg (282 lb 3.2 oz), last menstrual period 07/08/2022, SpO2 98 %. Physical Exam Constitutional: Appearance: She is obese. She is ill-appearing. Cardiovascular: Rate and Rhythm: Normal rate and regular rhythm. Heart sounds: No murmur heard. Pulmonary: Effort: Pulmonary effort is normal. No respiratory distress. Breath sounds: No wheezing. Abdominal: General: Abdomen is flat. Bowel sounds are normal. There is no distension. Tenderness: There is no abdominal tenderness. Musculoskeletal: Right lower leg: Edema present. Left lower leg: Edema present. Skin: General: Skin is warm. Neurological: General: No focal deficit present. Mental Status: She is oriented to person, place, and time. Mental status is at baseline. Cranial Nerves: No cranial nerve deficit. LABS:. Recent Labs 08/01/22 0646 08/03/22 0348 WBC 13.1* 9.7 HGB 9.8* 9.7* HCT 30.8* 31.9* MCV 88.0 89.6 PLT 414* 506* RBC 3.50* 3.56* Recent Labs Lab 07/29/22 1325 07/30/22 0510 07/31/22 0450 08/01/22 0646 08/03/22 0348 NA 136 140 140 140 141 K 3.7 3.5 3.3* 3.8 3.3* CL 105 108* 108* 110* 109* CO2 26.6 26.3 27.6 24.0 26.8 AGAP 4.4* 5.7 4.4* 6.0 5.2 BUN 12 14 18 17 20* CR 1.34* 1.58* 1.54* 1.54* 1.80* BUNCREATININ 9.0 -- -- -- -- GLU 303* 307* 84 128* 83 CA 8.6 8.1* 8.4* 8.7 8.5 TP 5.9* 5.5* 5.6* -- -- ALB 1.9* 1.4* 1.4* -- -- TBIL 0.4 0.3 0.3 -- -- ALKP 97 73 67 -- -- AST 22 14* 18 -- -- ALT 21 17 16 -- -- Recent Labs Lab 07/29/22 2235 08/01/22 0646 INR 1.1 1.2* Intake/Output Summary (Last 24 hours) at 08/03/2022 1136 Last data filed at 08/03/2022 0900 Gross per 24 hour Intake 360 ml Output -- Net 360 ml RADIOLOGY : REVIEWED MEDICATIONS Scheduled medications ??? amLODIPine 10 mg Oral Daily ??? cefepime 2 g Intravenous Q12H ??? enoxaparin 40 mg Subcutaneous 2 times per day ??? furosemide 20 mg Oral Daily ??? insulin glargine 10 Units Subcutaneous BID ??? insulin lispro 0-8 Units Subcutaneous 4x Daily AC and at bedtime ??? insulin lispro 10 Units Subcutaneous TID WC ??? linezolid 600 mg Oral 2 times per day ??? normal saline 3-10 mL Intravenous BID ??? pantoprazole EC 40 mg Oral Daily Infusion PRN acetaminophen OR acetaminophen, albuterol sulfate HFA, hydrALAZINE, normal saline, ondansetron,perflutren lipid microsphere, polyethylene glycol ASSESSMENT /PLAN 31 years old female, morbidly obese history of diabetes, has not been on insulin for the last 1 year because of no insurance admitted to ICU with acute respiratory failure. Initially required BiPAP with oxygen up to 10 to 15 L. CTA chest showed dense patchy opacities right greater than left, she was started on broad-spectrum antibiotics and Bronchoscopy was done 07/31/2022. Bounce back to the ICU the same day she was downgraded on 07/31/2022 because of increasing oxygen requirements. Inflammatorywork-up ongoing and pulmonary is following the patient as well. She was again transferred to regular medical floor 08/02/2022 after improvement of her oxygen status. PLAN: #Multifocal pneumonia #Acute hypoxic respiratory failure -Symptomatically improved, oxygen requirements have come down. Ambulating without any significant shortness of breath. Chest x-ray also better -MRSA nares positive on admission. Continue broad-spectrum antibiotics, will await culture results from her bronchoscopy -Remains on oxygen 2 to 4 L nasal cannula, wean off as able. -Most of her autoimmune/inflammatory work-up has been negative. ANCA, anti-CCP still pending. Beingfollowed by pulmonary #Acute diastolic CHF exacerbation -Echo showed normal EF, elevated right atrial pressure. -Received IV Lasix initially, will switch to oral Lasix 20 mg daily. Nurse advised strict input/output monitoring. #BOBBY, unknown if she has underlying CKD -Normal PTH. Creatinine elevated to 1.8 this morning. Mildly positive UA but patient is asymptomatic. We will check urine cultures. -We will check renal ultrasound -We will change vancomycin/Zosyn to linezolid/cefepime. We will continue to avoid nephrotoxic medications. #Type 1 diabetes, uncontrolled -Has not taken insulin for the last 1 year, due to insurance issues. HbA1c elevated to 13. ContinueLantus 10 units twice daily, increase lispro to 10 units 3 times daily, low-dose sliding scale. Carb consistent diet. #Hypertension -Stop hydrochlorothiazide due to BOBBY as well as initiation of furosemide, continue amlodipine 10 mgdaily #Possible EDD -Needs outpatient sleep study for formal diagnosis DVT Prophylaxis: Subcutaneous Lovenox Code status: Full Code Nae Sotelo MD 11:36 AM 08/03/2022 * Lety Cole PharmD - 08/03/2022 11:06 AM CDT Pharmacy Clinical Services: Sign off note Pharmacy has been consulted to dose vancomycin. Pharmacy will now sign off dosing as the drug has been discontinued. Thank you for allowing us the opportunity to participate in the care of Leeroy Canales. Please let pharmacy know if we can be of further assistance. LETY COLE PharmTerri Phone number: [phone] 08/03/2022 11:06 AM * Prince Nishant Rivera RN - 08/02/2022 9:48 PM CDT Problem: Gas Exchange - Impaired Goal: Adequate oxygenation Outcome: Progressing Problem: Infection - Risk of, Septic Shock Goal: Absence of infection signs and symptoms Outcome: Progressing Problem: Infection - Risk of, Urinary Catheter-Associated Urinary Tract Infection Goal: Absence of infection signs and symptoms Outcome: Progressing Problem: Mental Status - Risk of, Impaired Goal: Mental status restored to baseline Outcome: Progressing Problem: Pain - Acute Goal: Achieve acceptable pain level Outcome: Progressing Goal: Reduced pain sensation Outcome: Progressing Problem: Skin Integrity - Risk of, Impaired Goal: Skin integrity intact Outcome: Progressing Problem: Tissue Perfusion - Cardiopulmonary, Altered Goal: Circulatory function within specified parameters Outcome: Progressing Problem: Venous Thromboembolism - Risk of Goal: Absence of deep venous thrombosis Outcome: Progressing Problem: Discharge Planning Goal: Knowledge of discharge instructions Outcome: Progressing Problem: Reduced risk for falls/injury Goal: Reduced Risk for Falls/Injury Outcome: Progressing Goal: Reduced Risk of Confusion (Acute vs Chronic) Outcome: Progressing Goal: Reduced Risk of Symptomatic Depression Outcome: Progressing Goal: Reduced Risk of Altered Elimination Outcome: Progressing Goal: Reduced Risk of Dizziness/Vertigo/Balance Outcome: Progressing Goal: Reduced Risk of Polypharmacy Outcome: Progressing Problem: Discharge Planning Goal: Knowledge of discharge instructions Outcome: Progressing Problem: Pain control/comfort Goal: Promote pain control/comfort Outcome: Progressing Problem: Skin integrity, Impaired-wound Goal: Absence of new skin breakdown Outcome: Progressing Goal: Evidence of wound healing Outcome: Progressing Problem: Skin integrity, Impaired-pressure injury/ulcer Goal: Absence of new skin breakdown Outcome: Progressing Goal: Evidence of pressure injury/ulcer healing Outcome: Progressing Problem: Skin integrity, at risk Goal: Absence of new skin breakdown Outcome: Progressing Problem: Moisture associated skin impairment Goal: Reduce moisture exposure Outcome: Progressing Goal: Evidence of wound healing Outcome: Progressing Goal: Evidence of pressure injury/ulcer healing Outcome: Progressing Goal: Absence of new skin breakdown Outcome: Progressing Problem: Discharge Planning Goal: Knowledge of discharge instructions Outcome: Progressing Problem: Injury - Risk of, Abnormal Serum Glucose Level Goal: Glucose level within specified parameters Outcome: Progressing Problem: Pain Goal: Patient's pain/discomfort is manageable Description: Assess and monitor patient's pain using appropriate pain scale. Collaborate with interdisciplinary team and initiate plan and interventions as ordered. Re-assess patient's pain level 30 - 60 minutes after pain management intervention. Outcome: Progressing Problem: Safety Goal: Patient will be injury free during hospitalization Description: Assess and monitor vitals signs, neurological status including level of consciousness and orientation. Assess patient's risk for falls and implement fall prevention plan of care and interventions per hospital policy. Ensure arm band on, uncluttered walking paths in room, adequate room lighting, call light and overbed table within reach, bed in low position, wheels locked, side rails up per policy, and non-skid footwear provided. Outcome: Progressing Problem: Daily Care Goal: Daily care needs are met Description: Assess and monitor ability to perform self care and identify potential discharge needs. Outcome: Progressing Problem: Psychosocial Needs Goal: Demonstrates ability to cope with hospitalization/illness Description: Assess and monitor patients ability to cope with his/her illness. Outcome: Progressing Goal: Collaborate with patient/family/caregiver to identify patient specific goals for this hospitalization Outcome: Progressing Problem: Discharge Barriers Goal: Patient's discharge needs are met Description: Collaborate with interdisciplinary team and initiate plans and interventions as needed. Outcome: Progressing Problem: Infection - Risk of, Central Venous Catheter-Associated Bloodstream Infection Goal: Absence of Central Venous Catheter Associated Bloodstream Infection Signs and Symptoms Outcome: Progressing * Althea Cain RN - 08/02/2022 3:58 PM CDT Plan for this time is to maintain O2 sats, continue antibiotics, continue BiPAP @hs. Downgraded to general status. Althea Cain RN, Cardiac [employer]/Youtuber ext [phone] Email: [email or web address] * Reba Savage PharmD - 08/02/2022 2:44 PM CDT Vancomycin Pharmacokinetic Progress Note Day 4 of therapy Leeroy Canales is a 31-year-old female for which pharmacy has been consulted to dose vancomycin forPneumonia. Other antibiotics ordered include zosyn Historical vancomycin use: NA Allergies: No Known Allergies Height: 5' 7 (1.702 m) Weight: 122.5 kg (270 lb 1 oz) Body mass index is 42.3 kg/m??. Temp (24 hr max): Temp Av.8 ??F (36.6 ??C) Min: 96.8 ??F (36 ??C) Max: 98.6 ??F (37 ??C) Today's labs and vitals: Lab Results Component Value Date/Time WBC 13.1 (H) 08/01/2022 06:46 AM WBC 18.2 (H) 07/31/2022 04:50 AM WBC 13.6 (H) 07/30/2022 05:10 AM WBC 12.8 (H) 07/29/2022 01:25 PM Lab Results Component Value Date/Time CR 1.54 (H) 08/01/2022 06:46 AM CR 1.54 (H) 07/31/2022 04:50 AM CR 1.58 (H) 07/30/2022 05:10 AM CR 1.34 (H) 07/29/2022 01:25 PM CrCl = estimated creatinine clearance is 73.2 mL/min (A) (based on SCr of 1.54 mg/dL (H)). Intake/Output Summary (Last 24 hours) at 08/02/2022 1444 Last data filed at 08/02/2022 1000 Gross per 24 hour Intake 640 ml Output -- Net 640 ml Pertinent Cultures: Date Drawn Site Organism Pertinent Sensitivity 07/29 COVID Negative Bcx2 neg MRSA nares POSITIVE Resp PCR neg Strep pneumo urinary antigen neg 08/01 mrsa nares negative 07/31 BAL Alpha strep 07/30 resp Neisseria, micrococcus, alpha strep, CoNS Levels: Date Time Level AUC Dose Comments 08/01 0646 22.9 584 1500 mg q24h 13.5 hr level Assessment: Leeroy Canales is a 31-year-old female who is currently receiving vancomycin. AUC goal is 400 - 600 Current AUC level is Therapeutic Renal function is Stable; S.Cr range 1.34-1.58 Plan: Antibiotic Plan: continue 1250 mg q24h (est AUC 505) Next level due: 08/04 at 0600 Pharmacy will continue to follow cultures, clinical status, and appropriateness of therapy. Thank you for the consult. Pharmacy Consult per Dr. Tone SAVAGE, PharmD Phone: [phone] 08/02/2022 3:54 PM * Tono Bejarano MD - 08/02/2022 11:45 AM CDT Images from the original note were not included. Critical Care Medicine 24/7 Pager: [phone] Critical Care Progress Note Hospital Day: 4 ICU Day: 1d 12h Assessment/Plan: Assessment: ??? Acute hypoxemic respiratory failure due to: ??? Pulmonary infiltrate of unclear etiology. Cryptogenic organizing pneumonia? Hypersensitivity? Granulomatous polyangiitis? Sarcoidosis? Atypical pulmonary edema? Her oxygenation has been stable on4 LPM since yesterday morning. BAL cytology results show acute inflammation and no malignancy, with cultures still pending. BAL during bronchoscopy did not show evidence of alveolar hemorrhage making vasculitis and Goodpastures Disease unlikely. Histoplasma Ag pending. Anti-CCP and ANCA still pending. Anti-GBM studies were sent yesterday and are still pending. DAVID and RF are negative. ??? Type II DM ??? Hypertension ??? Possible EDD--no formal diagnosis at this time. Plan: ??? Oxygen to maintain saturation over 90% ??? Continue broad spectrum antibiotics for now ??? Await anti-CCP and ANCA as well as histoplasma antigen and anti-GBM antibodies ??? Basal bolus insulin--dose adjusted again today ??? Continue present anti-hypertensive medications ??? DVT prophylaxis with SCDs and heparin ??? Appreciate pulmonary assistance ??? Continue BiPAP with sleep ??? Transfer to medical floor ??? Plans discussed with her. Subjective Stable through the night. She has no complaints today. She has a cough, but it remains non-productive. Denies pain or dyspnea. Slept with BiPAP last night. Physical Exam Filed Vitals: 08/02/22 0700 08/02/22 0800 08/02/22 0900 08/02/22 1000 BP: 126/79 128/81 129/79 Pulse: 91 89 91 95 Resp: 23 Temp: 98.1 ??F (36.7 ??C) TempSrc: Tympanic SpO2: 100% 98% 97% 95% Weight: Height: I/O last 3 completed shifts: In: 530 [P.O.:480; IV Piggyback:50] Out: - Physical Exam: GENERAL: Well developed obese female lying in bed wearing nasal cannula oxygen. She appears comfortable at rest. No apparent distress HEENT: Pupils equal round and reactive to light. The extraocular motions were intact. Mucous membranes are moist NECK: Supple without lymphadenopathy, thyromegaly, or jugular venous distention CARDIAC: Regular rate and rhythm with a normal S1 and S2 without murmur, gallop, or rub. LUNGS: No accessory respiratory muscles in use. Normal breath sounds bilaterally without wheeze or crackles. Normal chest wall expansion and percussion ABDOMEN: Soft, nontender, no masses were present. Normal bowel sounds present throughout EXTREMITIES: No clubbing, cyanosis, or edema. Normal perfusion NEURO: Awake, alert, moves all extremities appropriately. TONO BEJARANO MD * Tono Bejarano MD - 08/01/2022 2:08 PM CDT Images from the original note were not included. Critical Care Medicine 26/05 Pager: [phone] Critical Care Progress Note Hospital Day: 3 ICU Day: 14h Assessment/Plan: Assessment: ??? Acute hypoxemic respiratory failure due to: ??? Pulmonary infiltrate of unclear etiology. Cryptogenic organizing pneumonia? Hypersensitivity? Granulomatous polyangiitis? Sarcoidosis? Her oxygenation is better today after diuresis and a dose ofsteroids last night. BAL cytology results show acute inflammation and no malignancy, with cultures still pending. BAL during bronchoscopy did not show evidence of alveolar hemorrhage making vasculitis and Goodpastures Disease unlikely. Histoplasma Ag pending. Anti-CCP and ANCA still pending. Anti-GBM studies were sent yesterday and are still pending. DAVID and RF are negative. ??? Type II DM ??? Hypertension Plan: ??? Oxygen to maintain saturation over 90% ??? Continue broad spectrum antibiotics for now ??? Await anti-CCP and ANCA as well as histoplasma antigen and anti-GBM antibodies ??? Basal bolus insulin--dose adjusted again today ??? Increase anti-hypertensive medication--add HCTZ ??? DVT prophylaxis with SCDs and heparin ??? Consider transbronchial biopsy and/or surgical lung biopsy if BAL and other studies are not revealing, and infiltrates/hypoxia persist ??? Continue monitoring in the ICU ??? Plans discussed with her. Subjective Last night she became more dyspneic with an increase in oxygen requirement to 15 LPM. She was treated with Lasix and a single dose of IV Solumedrol. She feels better today with less dyspnea. She is now on 4 LPM supplemental oxygen. Physical Exam Filed Vitals: 08/01/22 1000 08/01/22 1100 08/01/22 1200 08/01/22 1300 BP: (!) 155/87 (!) 169/103 (!) 148/82 (!) 144/85 Pulse: 96 100 100 99 Resp: Temp: 98.4 ??F (36.9 ??C) TempSrc: Oral SpO2: 96% 94% 96% 95% Weight: Height: I/O last 3 completed shifts: In: 1340 [P.O.:790; IV Piggyback:550] Out: 2470 [Urine:2470] Physical Exam: GENERAL: Well developed obese female lying in bed wearing nasal cannula oxygen. She appears comfortable at rest. No apparent distress HEENT: Pupils equal round and reactive to light. The extraocular motions were intact. Mucous membranes are moist NECK: Supple without lymphadenopathy, thyromegaly, or jugular venous distention CARDIAC: Regular rate and rhythm with a normal S1 and S2 without murmur, gallop, or rub. LUNGS: No accessory respiratory muscles in use. Normal breath sounds bilaterally without wheeze or crackles. Normal chest wall expansion and percussion ABDOMEN: Soft, nontender, no masses were present. Normal bowel sounds present throughout EXTREMITIES: No clubbing, cyanosis, or edema. Normal perfusion NEURO: Awake, alert, moves all extremities appropriately. TONO BEJARANO MD * Reba Savage PharmD - 08/01/2022 1:13 PM CDT Vancomycin Pharmacokinetic Progress Note Day 3 of therapy Leeroy Canales is a 31-year-old female for which pharmacy has been consulted to dose vancomycin forPneumonia. Other antibiotics ordered include zosyn, doxycyline. Historical vancomycin use: NA Allergies: No Known Allergies Height: 5' 7 (1.702 m) Weight: 122.5 kg (270 lb 1 oz) Body mass index is 42.3 kg/m??. Temp (24 hr max): Temp Av.6 ??F (37 ??C) Min: 97.7 ??F (36.5 ??C) Max: 99.2 ??F (37.3 ??C) Today's labs and vitals: Lab Results Component Value Date/Time WBC 13.1 (H) 08/01/2022 06:46 AM WBC 18.2 (H) 07/31/2022 04:50 AM WBC 13.6 (H) 07/30/2022 05:10 AM WBC 12.8 (H) 07/29/2022 01:25 PM Lab Results Component Value Date/Time CR 1.54 (H) 08/01/2022 06:46 AM CR 1.54 (H) 07/31/2022 04:50 AM CR 1.58 (H) 07/30/2022 05:10 AM CR 1.34 (H) 07/29/2022 01:25 PM CrCl = estimated creatinine clearance is 73.2 mL/min (A) (based on SCr of 1.54 mg/dL (H)). Intake/Output Summary (Last 24 hours) at 08/01/2022 1313 Last data filed at 08/01/2022 0233 Gross per 24 hour Intake 790 ml Output 2020 ml Net -1230 ml Pertinent Cultures: Date Drawn Site Organism Pertinent Sensitivity 07/29 COVID Negative Bcx2 neg MRSA nares POSITIVE Resp PCR neg Strep pneumo urinary antigen neg 08/01 mrsa nares 07/31 BAL neg 07/30 resp Neisseria, micrococcus, alpha strep Levels: Date Time Level AUC Dose Comments 08/01 0646 22.9 584 1500 mg q24h 13.5 hr level Assessment: Leeroy Canales is a 31-year-old female who is currently receiving vancomycin. AUC goal is 400 - 600 Current AUC level is Therapeutic Renal function is Stable; S.Cr range 1.34-1.58, 1.54 today Plan: Antibiotic Plan: Will lower to 1250 mg q24h (est AUC 505) as continued dosing at current dose is likely to become supratherapeutic Next level due: 08/04 06 Pharmacy will continue to follow cultures, clinical status, and appropriateness of therapy. Thank you for the consult. Pharmacy Consult per Dr. Tone SAVAGE, PharmD Phone: [phone] 08/01/2022 1:13 PM * Alexis Woodward MD - 07/31/2022 11:51 PM CDT Medical ICU progress note 31-year-old pleasant lady with history of diabetes mellitus type 2 and hypertension, initially admitted on 07/29 for worsening shortness of breath bilateral lung infiltrates of unclear etiology needing noninvasive mechanical ventilation. Patient has had extensive work-up including a negative CT angiogram of the chest for PE, underwent bronchoscopy earlier today on 07/31 with BAL. Infectious work-uppending with differential including cryptogenic organizing pneumonia, hypersensitivity pneumonia oreosinophilic pneumonia. Additional work- up including histoplasma antigen, DAVID, rheumatoid factor, anti-CCP and ANCA are pending. Patient was transferred to medical floor under hospitalist service earlier today however continued to have frequent desaturations with minimal exertion and activity. She has been needing intermittentnonrebreather and was brought back to ICU. At the time of examination, patient denied any chest discomfort or shortness of breath. He was saturating 96% on nonrebreather. Lung sounds were coarse, regular rate and rhythm, trace pedal edema on exam. She denied any other complaints. Assessment: Acute respiratory failure with hypoxia, pulmonary infiltrates of unclear etiology Uncontrolled type 2 diabetes mellitus with prior history of DKA Hypertension Plan: Admit to ICU Will use intermittent positive pressure ventilation with CPAP at 8 to 10 cm H2O. Her ABG was showing pH 7.47, PCO2 33, PO2 62. Case discussed with respiratory therapist and may utilize Airvo if patient is unable to tolerate CPAP. Giving 1 dose of IV Solu-Medrol 40 mg. Received a total of 60 mg of IV Lasix today. Ordered additional IV Lasix 40 mg for morning. Continue current antibiotics: Vancomycin, Zosyn and doxycycline. Awaiting further work-up as outlined above. Critical Care time spent in evaluation and management of a critically ill or injured patient is 35 minutes, such that the critical illness or injury acutely impairs one or more organ system: (Respiratory, infectious disease) such that there is a high probability of imminent or life-threatening deterioration in the patient's condition needing immediate attention or presence of critical care physician near bedside for the above time . Complex decisions were made to manipulate and support multiple organ systems. The time listed is exclusive of any procedures which may have been performed. Critical care time includes time spent at bedside performing history and physical exam, time spent researching patient prior to interaction with patient, time spent discussing findings and treatment plan with patient and/or family, time spent discussing patient with consultants and colleagues, time spent reviewing pertinent laboratory and radiographic evaluations, time spent re-evaluating patient, or time spent discussing patient with nursing staff. All of the patient's and his family's questions were answered, and the plan of care going forward was outlined to them. * Reba Beth NP - 07/31/2022 10:17 PM CDT Pt seen at bedside, Desaturates with exertion, now requiring 13l oxygen via mask, Lung sounds diminished cxr with worsening infiltrates, Given 20 mg IV lasix at 2000 with minimal response, [id number] mg IV lasix ordered, Will place pure wick catheter - abg,/immunoglobulins ordered, D/w vinyl cutter Dr Woodward, will transfer to ICU for further mgmt due to increased oxygen requirements * Dorie Canales RN - 07/31/2022 5:00 PM CDT Pt transferred to room 904 via wheelchair by this RN. Vital signs monitored during transport, pt remains on 5L NC. Pt ambulated to bed without issue. Pt resting comfortably in bed with receiving RN, Bennett, and BUSGIRL at bedside. Bedside table, call light, belongings and phone within reach of pt. * Reba Savage PharmD - 07/31/2022 2:19 PM CDT Vancomycin Pharmacokinetic Progress Note Day 2 of therapy Leeroy Canales is a 31-year-old female for which pharmacy has been consulted to dose vancomycin forPneumonia. Other antibiotics ordered include zosyn, doxycyline. Historical vancomycin use: NA Allergies: No Known Allergies Height: 5' 7 (1.702 m) Weight: 122.5 kg (270 lb 1 oz) Body mass index is 42.3 kg/m??. Temp (24 hr max): Temp Av.5 ??F (36.9 ??C) Min: 97.7 ??F (36.5 ??C) Max: 99.3 ??F (37.4 ??C) Today's labs and vitals: Lab Results Component Value Date/Time WBC 18.2 (H) 07/31/2022 04:50 AM WBC 13.6 (H) 07/30/2022 05:10 AM WBC 12.8 (H) 07/29/2022 01:25 PM Lab Results Component Value Date/Time CR 1.54 (H) 07/31/2022 04:50 AM CR 1.58 (H) 07/30/2022 05:10 AM CR 1.34 (H) 07/29/2022 01:25 PM CrCl = estimated creatinine clearance is 73.2 mL/min (A) (based on SCr of 1.54 mg/dL (H)). Intake/Output Summary (Last 24 hours) at 07/31/2022 1419 Last data filed at 07/31/2022 1300 Gross per 24 hour Intake 2300 ml Output 1295 ml Net 1005 ml Pertinent Cultures: Date Drawn Site Organism Pertinent Sensitivity 07/29 COVID Negative Bcx2 neg MRSA nares POSITIVE Resp PCR neg Strep pneumo urinary antigen neg 07/30 resp GPC, GNR, alpha strep Levels: Date Time Level AUC Dose Comments Assessment: Leeroy Canales is a 31-year-old female who is currently receiving vancomycin. AUC goal is 400 - 600 Current AUC level is Pending Renal function is Worsening; S.Cr range 1.34-1.58, 1.54 today Of note, received 2000 mg x1 at [facility]. Plan: Antibiotic Plan: Continue vancomycin 1500 mg q24h (est AUC: 552) Next level due: 08/01 @ 0600 Pharmacy will continue to follow cultures, clinical status, and appropriateness of therapy. Thank you for the consult. Pharmacy Consult per Dr. Tone SAVAGE, PharmD Phone: [phone] 07/31/2022 2:19 PM * Tono Bejarano MD - 07/31/2022 1:04 PM CDT Images from the original note were not included. Critical Care Medicine 26/05 Pager: [phone] Critical Care Progress Note Hospital Day: 2 ICU Day: 1d 15h Assessment/Plan: Assessment: ??? Acute hypoxemic respiratory failure due to: ??? Pulmonary infiltrate of unclear etiology. Cryptogenic organizing pneumonia? Hypersensitivity? Granulomatous polyangiitis? Chronic eosinophilic pneumonia? Sarcoidosis? BAL results pending. Histoplasma Ag pending. DAVID and RF pending. Anti-CCP and ANCA still pending. ??? Type II DM ??? Hypertension Plan: ??? BiPAP as needed for comfort ??? Oxygen to maintain saturation over 90% ??? Continue broad spectrum antibiotics ??? Await anti-CCP and ANCA ??? Basal bolus insulin--dose adjusted due to NPO status this morning ??? DVT prophylaxis with SCDs and heparin ??? She can transfer to a medical floor later today. ??? Repeat CXR tomorrow ??? Consider surgical lung biopsy if BAL and other studies are not revealing, and infiltrates/hypoxia persist ??? She will need a pulmonary consult after leaving the ICU. ??? Plans discussed with her. Subjective Feels a little better today. She is now on 4 LPM supplemental oxygen. Physical Exam Filed Vitals: 07/31/22 1156 07/31/22 1201 07/31/22 1204 07/31/22 1209 BP: (!) 142/85 (!) 144/86 (!) 140/87 (!) 146/88 Pulse: 98 98 97 97 Resp: (!) 34 (!) 32 (!) 31 27 Temp: TempSrc: SpO2: 91% 91% 92% 92% Weight: Height: I/O last 3 completed shifts: In: 1750 [P.O.:1200; IV Piggyback:550] Out: 1395 [Urine:1395] Physical Exam: GENERAL: Well developed obese female lying in bed wearing nasal cannula oxygen. She appears comfortable at rest. No apparent distress HEENT: Pupils equal round and reactive to light. The extraocular motions were intact. Mucous membranes are moist NECK: Supple without lymphadenopathy, thyromegaly, or jugular venous distention CARDIAC: Regular rate and rhythm with a normal S1 and S2 without murmur, gallop, or rub. LUNGS: No accessory respiratory muscles in use. Normal breath sounds bilaterally without wheeze or crackles. Normal chest wall expansion and percussion ABDOMEN: Soft, nontender, no masses were present. Normal bowel sounds present throughout EXTREMITIES: No clubbing, cyanosis, or edema. Normal perfusion NEURO: Awake, alert, moves all extremities appropriately. TONO BEJARANO MD * Tono Bejarano MD - 07/31/2022 11:05 AM CDT Pre-Procedure Assessment (conscious sedation) Procedure Planned: Bronchoscopy with BAL .Net Developer: Tono Bejarano MD Time of Assessment: 10:20 AM NPO Status: Confirmed. No food or liquids since midnight 07/30 Allergies: Patient has no known allergies. Exam: ?? Age: 31 ?? Weight: 122.5 kg Vitals: 07/31/22 1100 BP: (!) 146/89 Pulse: 100 Resp: 28 Temp: SpO2: 93% ?? MALLAMPATI: II ?? Respiratory: No accessory respiratory muscles in use. Normal breath sounds bilaterally without wheeze or crackles ?? Cardiovascular: RRR no murmur, gallop or rub ?? Extremities: no clubbing, cyanosis or edema ?? Neuro: Awake, alert and conversant Anesthesia Plan: Versed and Fentanyl Prior Anesthesia Reaction: none Consent: I discussed risks and benefits of the procedure with the patient. All questions answered. Agrees to proceed as outlined. ASA Classification: III * Neelam Ko RN - 07/31/2022 5:17 AM CDT Neuro: A&Ox4 Resp: on 4L maintaining O2 sats in low to mid 90s with occasional brief desaturation to upper 80s Cardio: NRS/ST(100s) and normotensive GI/: fortune draining adequate amount of urine Problem: Gas Exchange - Impaired Goal: Adequate oxygenation Outcome: Progressing Problem: Infection - Risk of, Septic Shock Goal: Absence of infection signs and symptoms Outcome: Progressing Problem: Infection - Risk of, Urinary Catheter-Associated Urinary Tract Infection Goal: Absence of infection signs and symptoms Outcome: Progressing Problem: Mental Status - Risk of, Impaired Goal: Mental status restored to baseline Outcome: Progressing Problem: Pain - Acute Goal: Achieve acceptable pain level Outcome: Progressing Goal: Reduced pain sensation Outcome: Progressing Problem: Skin Integrity - Risk of, Impaired Goal: Skin integrity intact Outcome: Progressing Problem: Tissue Perfusion - Cardiopulmonary, Altered Goal: Circulatory function within specified parameters Outcome: Progressing Problem: Venous Thromboembolism - Risk of Goal: Absence of deep venous thrombosis Outcome: Progressing Problem: Discharge Planning Goal: Knowledge of discharge instructions Outcome: Progressing Problem: Reduced risk for falls/injury Goal: Reduced Risk for Falls/Injury Outcome: Progressing Goal: Reduced Risk of Confusion (Acute vs Chronic) Outcome: Progressing Goal: Reduced Risk of Symptomatic Depression Outcome: Progressing Goal: Reduced Risk of Altered Elimination Outcome: Progressing Goal: Reduced Risk of Dizziness/Vertigo/Balance Outcome: Progressing Goal: Reduced Risk of Polypharmacy Outcome: Progressing * Tono Bejarano MD - 07/30/2022 4:56 PM CDT Images from the original note were not included. Critical Care Medicine 26/05 Pager: [phone] Critical Care Progress Note Hospital Day: 1 ICU Day: 19h Assessment/Plan: Assessment: ??? Acute hypoxemic respiratory failure due to: ??? Pulmonary infiltrate of unclear etiology. Alveolar hemorrhage? Cryptogenic organizing pneumonia? Hypersensitivity? Granulomatous polyangiitis? Chronic eosinophilic pneumonia? Type II DM ??? Hypertension ??? Critical illness: she has ongoing BiPAP dependent respiratory failure and will need constant monitoring and adjustment of treatment to avoid further life threatening decline. Plan: ??? ICU monitoring ??? BiPAP as needed ??? Oxygen to maintain saturation over 90% ??? Continue broad spectrum antibiotics for now until cultures are negative. ??? Await further serologic studies ??? Send rheumatologic screening labs. ??? Stop empiric steroids at this time to avoid obscuring a diagnosis of rheumatologic lung diseaseor other steroid responsive disease. ??? Plan for bronchoscopy tomorrow. ??? Basal bolus insulin ??? DVT prophylaxis with SCDs and heparin ??? Plans discussed with her. Critical Care time: 38 minutes Subjective She feels comfortable on BiPAP. As noted in H&P her symptoms have been gradually progressing for the past 2 weeks, and started following what she thought was a cold. She has had a cough productive of small amounts of clear to white mucus without blood. She notes feeling cold, but denies chills or fever. She has not had chest pain or wheezing. She had one episode of vomiting and diarrhea in the past 2 days. She has no prior history of lung disease, and there is no family history of lung disease. She lives with her sister and her sister's children. There is a dog in the house, but no other pets. She has not been exposed to birds. She smoked for less than a year at age 20, and has not smoked since. She denies vaping, drug or alcohol use. Her sister's house has central air conditioning, and is carpeted. She has not travelled out of [place] any time recently. She has not started new medications, and in fact was not taking any medications at the time of admission. She has not had any recent rash, and denies joint aches or myalgias. Physical Exam Filed Vitals: 07/30/22 1401 07/30/22 1437 07/30/22 1500 07/30/22 1600 BP: (!) 140/77 (!) 142/82 Pulse: 93 95 Resp: 23 Temp: 97.7 ??F (36.5 ??C) TempSrc: Tympanic SpO2: 96% 95% 96% 97% Weight: Height: I/O last 3 completed shifts: In: 73 [I.V.:73] Out: 1375 [Urine:1375] Physical Exam: GENERAL: Well developed obese female lying in bed wearing a BiPAP mask. She appears comfortable at rest. No apparent distress HEENT: Pupils equal round and reactive to light. The extraocular motions were intact. Mucous membranes are moist NECK: Supple without lymphadenopathy, thyromegaly, or jugular venous distention CARDIAC: Regular rate and rhythm with a normal S1 and S2 without murmur, gallop, or rub. LUNGS: No accessory respiratory muscles in use. Normal breath sounds bilaterally without wheeze or crackles. Normal chest wall expansion and percussion ABDOMEN: Soft, nontender, no masses were present. Normal bowel sounds present throughout EXTREMITIES: No clubbing, cyanosis, or edema. Normal perfusion NEURO: Awake, alert, moves all extremities appropriately. TONO BEJARANO MD * Ashlee Hein RN - 07/30/2022 1:18 PM CDT Met with patient at bedside. He is independent in all ADLs, lives with her sister. 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 No current DME. She does not have a PCP. She would like to discuss with her sister and will let us know if she needs assistance, will need to follow up. Pharmacy [facility] in [place] [phone]. Anticipated discharge plan is home. All questions answered. Will continue to follow. 07/30/22 1316 Referral Data Referral Reason Discharge Planning;Resource Assessment Source of Information Patient;Chart review Patient Information OB Patient < 19 yrs old No Primary Caregiver Self Support System Immediate family Baseline ADL's Functional Status Independent Living Arrangements Family members Type of Residence Private residence Ambulation Assistance No Bathing/Grooming Assistance No Dressing Assistance No Behavior Oriented;Cooperative Communication Talks;Understands speaking;Understands [place] Socioeconomic Needs Caregiver Needed No At Risk of Abuse or Neglect No Adequate Resources Yes Psychological Needs: Mental health concerns No Suspected Drug or Alcohol Abuse No Inappropriate Patient/Family Behaviors No Difficult Adjustment to Diagnosis No Recent Hospitalization Recent Hospitalization within 30 days No Anticipated Discharge Needs Change in Living Arrangements No In-Home Care or Equipment No Vocational and/or Role Loss No Inability to Complete ADL's No Anticipated DC Plan Living Arrangements Family members Support Systems Family members Type of Residence Private residence Assistance Needed (needs PCP) Patient expects to be discharged to: Home * Ayden Montez PharmD - 07/30/2022 7:59 AM CDT Vancomycin Pharmacokinetic Progress Note Day 1 of therapy Leeroy Canales is a 31-year-old female for which pharmacy has been consulted to dose vancomycin forPneumonia. Other antibiotics ordered include zosyn, doxycyline. Historical vancomycin use: NA Allergies: No Known Allergies Height: 5' 7 (1.702 m) Weight: 122.5 kg (270 lb 1 oz) Body mass index is 42.3 kg/m??. Temp (24 hr max): Temp Av.3 ??F (36.8 ??C) Min: 97.1 ??F (36.2 ??C) Max: 98.8 ??F (37.1 ??C) Today's labs and vitals: Lab Results Component Value Date/Time WBC 13.6 (H) 07/30/2022 05:10 AM WBC 12.8 (H) 07/29/2022 01:25 PM Lab Results Component Value Date/Time CR 1.58 (H) 07/30/2022 05:10 AM CR 1.34 (H) 07/29/2022 01:25 PM CrCl = estimated creatinine clearance is 71.3 mL/min (A) (based on SCr of 1.58 mg/dL (H)). Intake/Output Summary (Last 24 hours) at 07/30/2022 0759 Last data filed at 07/30/2022 0652 Gross per 24 hour Intake 73 ml Output 825 ml Net -752 ml Pertinent Cultures: Date Drawn Site Organism Pertinent Sensitivity 07/29 COVID Negative Bcx2 In process MRSA nares Sent Resp PCR Sent Strep pneumo urinary antigen In process Levels: Date Time Level AUC Dose Comments Assessment: Leeroy Canales is a 31-year-old female who is currently receiving vancomycin. AUC goal is 400 - 600 Current AUC level is Pending Renal function is Worsening; S.Cr range 1.34-1.58, 1.58 today Of note, received 2000 mg x1 at [facility]. Plan: Antibiotic Plan: Continue vancomycin 1500 mg q24h (est AUC: 552) Next level due: 08/01 @ 0600 Pharmacy will continue to follow cultures, clinical status, and appropriateness of therapy. Thank you for the consult. Pharmacy Consult per Dr. Tone MONTEZ, PharmD Phone: [phone] 07/30/2022 7:59 AM * VADIM Delatorre - 07/30/2022 5:28 AM CDTSummary: End of Shift note Patient maintained O2 sat >94 while on Bi-Pap overnight. Heart rate for patient was between 90-115 for shift. Patient was able to roll independently in bed. BP below 160 Systolic during shift. * iNdia Millan PharmD - 07/29/2022 9:54 PM CDT Vancomycin Pharmacokinetic Progress Note Day 0 of therapy Leeroy Canales is a 31-year-old female for which pharmacy has been consulted to dose vancomycin forPneumonia. Other antibiotics ordered include zosyn, doxycyline. Historical vancomycin use: NA Allergies: No Known Allergies Height: Weight: There is no height or weight on file to calculate BMI. Temp (24 hr max): Temp Av ??F (36.7 ??C) Min: 97.1 ??F (36.2 ??C) Max: 98.8 ??F (37.1 ??C) Today's labs and vitals: Lab Results Component Value Date/Time WBC 12.8 (H) 07/29/2022 01:25 PM Lab Results Component Value Date/Time CR 1.34 (H) 07/29/2022 01:25 PM CrCl = estimated creatinine clearance is 84.1 mL/min (A) (based on SCr of 1.34 mg/dL (H)). Intake/Output Summary (Last 24 hours) at 07/29/20222153 Last data filed at 07/29/20222138 Gross per 24 hour Intake -- Output 250 ml Net -250 ml Pertinent Cultures: Date Drawn Site Organism Pertinent Sensitivity Levels: Date Time Level AUC Dose Comments Assessment: Leeroy Canales is a 31-year-old female who is currently receiving vancomycin. AUC goal is 400 - 600 Current AUC level is Pending Renal function is Fluctuating Unknown baseline, d/t patient's habitus this could be baseline scr. Received 2000 mg x1 at [facility] Plan: Antibiotic Plan: 1500 mg q24h (est AUC: 476) Next level due: 08/01 @ 1200 Pharmacy will continue to follow cultures, clinical status, and appropriateness of therapy. Thank you for the consult. Pharmacy Consult per Dr. Tone MILLAN PharmD Phone: [phone] 07/29/2022 9:54 PM documented in this encounter H&P Notes * Nae Wayne MD - 07/29/2022 8:47 PM CDT Images from the original note were not included. Critical Care Medicine 26/05 Pager: [phone] Active Problems: * No active hospital problems. 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 Her symptoms started ~ 2 weeks ago, no associated chest pain, initially on exertion but then progressed to dyspnea at rest. It is associated with cough which is non productive. She denies any fever chills. Also complaints of diarrhea and emesis but no abdominal pain. Onlyhad 1 episode of diarrhea and emesis this AM. She does have a hx of DM with 1 episode of DKA but she is not taking any insulin which she is supposed to be taking for many yrs now due to insurance issues. She doesn't have a hx of HTN but her BP had been very elevated since admission to the OSH, received labetalol over there. She is not vaccinated against Covid. She is not taking any OCPs. At the OSH, she was needing ~ 10 L of NC O2, a CTA was done and was negative for a PE but showed bldiffuse infiltrates. Her labs are available in Epic. When arrived here was on 8 L of HFNCO2 but was desaturating. She was then started on NIV. Review of System: 12 point ROS was done and was negative except as above. Past Medical History: Diagnosis Date ??? Diabetes mellitus (CMS/HCC) PSH: didn't have any surgeries in her lifetime FH: father has DM and HTN Social hx: non smoker, no vaping, no IVDU or alcoholism. Social History Socioeconomic History ??? Marital status: Single Spouse name: Not on file ??? Number of children: Not on file ??? Years of education: Not on file ??? Highest education level: Not on file Occupational History ??? Not on file Tobacco Use ??? Smoking status: Never Smoker ??? Smokeless tobacco: Never Used Substance and Sexual Activity ??? Alcohol use: Not Currently ??? Drug use: Never ??? Sexual activity: Not on file Other Topics Concern ??? Not on file Social History Narrative ??? Not on file Social Determinants of Health Financial Resource Strain: Not on file Food Insecurity: Not on file Transportation Needs: Not on file Physical Activity: Not on file Stress: Not on file Social Connections: Not on file Intimate Partner Violence: Not on file Housing Stability: Not on file OBJECTIVE: Vital Signs: Temp (24hrs), Av.1 ??F (36.2 ??C), Min:97.1 ??F (36.2 ??C), Max:97.1 ??F (36.2 ??C) Pulse Av.8 Min: 94 Max: 113 Resp Av.6 Min: 16 Max: 39 SpO2 Av.8 % Min: 73 % Max: 98 % Systolic (24hrs), Av , Min:153 , Max:210 Diastolic (24hrs), Av, Min:91, Max:121 Fluid balance: No intake or output data in the 24 hours ending 07/29/222047 Respiratory data: Physical exam: General: mild distress Psych: anxious Neuro: no focal deficits Skin: R ant sher with superficial ulceration H/ENT: Normocephalic, without obvious abnormality, ENT exam normal, no neck nodes or sinus tenderness Neck: JVD cannot assess due to bidy habitus CV: tachycardic no murmur Respiratory: bl crackles Abdomen: non tender Extremities: + edema : deferred Renal Replacement: no Fortune: yes @LDAACTIVE@ LABS: Recent Results (from the past 24 hour(s)) CBC W/DIFF AUTOMATED Collection Time: 07/29/22 1:25 PM Result Value Ref Range WBC 12.8 (H) 4.5 - 11.0 x10'3/uL RBC 4.24 4.0 - 5.2 x10'6/uL HGB 11.8 (L) 12.0 - 16.0 G/DL HCT 37.7 36.0 - 46.0 % MCV 88.9 80.0 - 100.0 FL MCH 27.8 26.0 - 34.0 PG MCHC 31.3 31.0 - 37.0 G/DL RDW 14.0 11.6 - 14.8 % PLT 423 (H) 140 - 415 x10'3/uL MPV 10.7 7.0 - 12.0 FL CBC COMMENT AUTOMATED RBC MORPHOLOGY AND PLATELET EVALUATION NORMAL NEUTROPHILS 81.7 (H) 40.0 - 74.0 % LYMPHOCYTES 8.1 (L) 14.0 - 46.0 % MONOCYTES 9.7 4.0 - 13.0 % EOSINOPHILS 0.2 0.0 - 7.0 % BASOPHILS 0.1 0.0 - 3.0 % IMMATURE GRANS 0.2 0.0 - 0.43 % ABS. NEUTROPHILS TOTAL 10.42 (H) 1.69 - 7.81 x10'3/uL ABS. LYMPHOCYTES 1.04 0.21 - 5.42 x10'3/uL ABS. MONOCYTES 1.24 0.04 - 1.37 x10'3/uL ABS. EOSINOPHILS 0.03 0.00 - 0.68 x10'3/uL ABS. BASOPHILS 0.01 0.00 - 0.08 x10'3/uL ABS. IMMATURE GRANULOCYTES 0.03 0.00 - 0.06 x10'3/uL COMPREHENSIVE METABOLIC PANEL Collection Time: 07/29/22 1:25 PM Result Value Ref Range GLUCOSE 303 (H) 70 - 99 MG/DL BUN 12 7 - 18 MG/DL CREATININE S/P/B 1.34 (H) 0.50 - 1.20 MG/DL SODIUM 136 136 - 145 MMOL/L POTASSIUM 3.7 3.5 - 5.1 MMOL/L CHLORIDE S/P/B 105 100 - 108 MMOL/L CO2 26.6 21.0 - 32.0 MMOL/L CALCIUM 8.6 8.5 - 10.1 MG/DL BILIRUBIN TOTAL S/P/B 0.4 0.2 - 1.2 MG/DL TOTAL PROTEIN S/P/B 5.9 (L) 6.4 - 8.2 G/DL ALBUMIN S/P/B 1.9 (L) 3.4 - 5.0 G/DL AST 22 15 - 37 U/L ALT 21 14 - 55 U/L ALKALINE PHOSPHATASE S/P/B 97 50 - 136 U/L ANION GAP 4.4 (L) 5.0 - 15.0 MMOL/L BUN CREATININE RATIO 9.0 6 - 26 A/G RATIO 0.5 (L) 1.0 - 2.5 RATIO GFR ESTIMATE 55 (L) >90 ML/MIN/1.73 M2 TROPONIN, QUANT Collection Time: 07/29/22 1:25 PM Result Value Ref Range TROPONIN I HIGH SENSITIVITY 22 0 - 54 ng/L D-DIMER, QUANTITATIVE Collection Time: 07/29/22 1:25 PM Result Value Ref Range D-DIMER 658 (HH) 0 - 500 ng[FEU]/mL PRO-BRAIN NATRIURETIC PEPTIDE Collection Time: 07/29/22 1:25 PM Result Value Ref Range PRO-BRAIN NATRIURETIC PEPTIDE 5,562 (H) 0 - 125 PG/ML Qualitative HCG Collection Time: 07/29/22 1:25 PM Result Value Ref Range PREG SCREEN-SERUM NEGATIVE NEGATIVE CORONAVIRUS (COVID-19) RAPID ANTIGEN [IN HOUSE] Collection Time: 07/29/22 1:25 PM Specimen: NASAL Result Value Ref Range CORONAVIRUS ANTIGEN IA NEGATIVE NEGATIVE Specimen Type NASAL FIRST TEST NO EMPLOYED IN HEALTHCARE YES SYMPTOMATIC DEFINED BY CDC YES HOSPITALIZATION STATUS YES [facility] NO UNKNOWN INFLUENZA A & B Collection Time: 07/29/22 1:25 PM Specimen: NASAL Result Value Ref Range Specimen Type NASOPHARYNX INFLUENZA A NEGATIVE NEGATIVE INFLUENZA B NEGATIVE NEGATIVE POCT glucose Collection Time: 07/29/22 1:29 PM Result Value Ref Range GLUCOSE POC 314 (H) 70 - 99 MG/DL LACTIC ACID - SINGLE Collection Time: 07/29/22 2:20 PM Result Value Ref Range LACTIC ACID 1.1 0.5 - 2.0 MMOL/L BLOOD GAS, VENOUS Collection Time: 07/29/22 2:20 PM Result Value Ref Range FIO2 36 % PH VENOUS 7.37 7.31 - 7.41 PC02 VENOUS 50.0 40.0 - 52.0 MMHG PO2 VENOUS 44.0 30.0 - 50.0 MM HG BICARB-VENOUS 28.4 (H) 22.0 - 27.0 MMOL/L BASE EXCESS,VENOUS 3.1 0.0 - 4.0 MMOL/L O2 SAT VENOUS 79 (H) 70.0 - 75.0 % EKG / ECHO / IMAGING / PATHOLOGY / OTHER RESULTS: siunus tach MEDICATIONS & INFUSIONS: Scheduled P.R.N. ASSESSMENT and PLAN: She is a 31 yr old female coming in with subacute dyspnea which is getting progressively worse needing NIV: Acute hypoxemic resp failure: Multifocal PNA: Uncontrolled DM: Medical non compliance: CKD stage 3: Morbid Obesity: Hypokalemia: needing management -bedside US with preserved LVEF and no acute RV pathology, bl B lines, IVC with more than 50% collapsibility with resp -will check resp PCR, will get Legionella, strep and histoplasma urine Ag -start vanc/zosyn and doxycycline -follow resp cx and blood cx -start basal and bolus insulin -will give low dose steroids for severe PNA -diurese with lasix 40 bid -official echo in the AM -will get urine protein creatinine ratio -will start NIV -clear liquid low carb diet -watch for airway management -LE duplex -more than 5 mins spent in counseling about insulin compliance Full code DVT ppx: high dose lovenox for her BMI Total time spent providing critical care in the location where the care was being performed was 49 minutes and included, but was not limited to, the performance and/or interpretation of laboratory results, diagnostic studies and explanation of these, and procedures inherent to the provision of critical care, including treatment of multiple critical care requiring interventions or consulting sub specialists (if applicable). Special attention was given to support/correct/manage Acute hypoxemic resp failure, Multifocal PNA. My care also includes the orders placed in the electronic EMR to provide critical care manage this patient. This time does not include any separate procedures and interventions. NAE WAYNE MD documented in this encounter Procedure Notes * Tahir Garcia RN - 08/01/2022 1:57 PM CDT Consult for PICC line placement. Consent for procedure signed and verified. All questions answered.Pt was draped in sterile fashion. The right brachial vein was visualized using ultrasound. 1 ml lidocaine given at insertion site. A 21 gauge needle was used to cannulate and visualized in the right brachial vein. Wire was advanced without resistance or difficulty. The introducer was advanced without complications. PICC line was advanced without difficulty. Tip was confirmed in SVC via ECG. Report to RN. See flowsheet for details of measurements. Sterile technique maintained throughout procedure. TAHIR GARCIA RN * Tono Bejarano MD - 07/31/2022 12:51 PM CDTAssociated Order(s): BRONCHOSCOPY PFT Procedure(s): BRONCHOSCOPY,DIAGNOSTIC W LAVAGE Pre-Procedure Diagnose(s): Acute hypoxemic respiratory failure (CMS/HCC HHS/HCC) Post-Procedure Diagnose(s): Acute hypoxemic respiratory failure (CMS/HCC HHS/HCC) Procedure Performed: Fiberoptic bronchoscopy with BAL Indication: Acute hypoxemic respiratory failure .Net Developer: Tono Bejarano MD Pot Washer: Dorie Canales RN Anesthesia: 6 mg IV Versed, 50 mcg IV Fentanyl Procedure: Consent was obtained from the patient A timeout was completed at the bedside noting the patient name, laterality of the procedure, and confirming patient identity. She was provided with face mask oxygen. After conscious sedation, the bronchoscope was introduced through the right nostril. The vocal folds, arytenoids and glottic structures were normal with normalmovement of both vocal folds. The bronchoscope was advanced into the trachea. The entire tracheo-bro nchial tree appeared normal without anatomic abnormality, secretions or obstruction. The bronchoscope was advanced into the anterior segment of the right upper lobe and wedged there. Atotal of 90 mL of NS was used for BAL. The first aliquot was blood tinged and foamy, but the secondwas clearing, indicating no alveolar hemorrhage. The scope was then withdrawn. Complications: None Samples: BAL sent for differential cell count, cytology, culture, fungal culture, AFB smear and culture. EBL: none documented in this encounter Consult Notes * Lexus Deluna MD - 08/02/2022 8:50 AM CDT Pulmonary Consult Note ASSESSMENT/PLAN: Acute hypoxemic respiratory failure (CMS/HCC) Pulmonary infiltrate Morbid obesity (CMS/HCC) Multifocal pneumonia Acute hypoxic respiratory failure-improving Uncontrolled diabetes Would recommend continuing broad-spectrum antibiotics for multifocal pneumonia. Inflammatory etiology is on the differential but thought to be less likely at this time due to negative serology so far. Notably the ANCA remains pending. She is starting to show some clinical improvement. Oxygenation relatively stable now on 4 L/min. Would try to further wean oxygen, as SpO2 is in the high 90s. She is feeling less short of breath and no cough today. CXR by my read today as she is starting to show some improvement. I think we can hold off on a lung biopsy at this time. If she deteriorates, could consider a trial of steroids, but I think I would just watch her at this point and monitor her clinical progress and radiographic improvement. Will work her up with fungal serologies and also check a BNP as she appears hypervolemic on exam. Agree with BiPAP at night for now. I suspect that she may have some underlying EDD, but this can be evaluated as an outpatient once she has recovered from this acute illness. Pulmonary will continue to follow her as she is downgraded from ICU. Please call if any questions arise. Time spent: 75 minutes, with >50% in counseling/coordination of care. Discussed with JIMMIE De Guzman. ID: Leeroy Canales is a 31-year-old female : 1990 Provider None, CC: SOB HPI: Leeroy Canales is a 31-year-old female Patient is a 31-year-old never smoker with diabetes who was admitted to the hospital with shortnessof breath and respiratory failure. She had some upper respiratory symptoms prior to her hospitalization. She had a cough and shortness of breath and sinus congestion. When she presented to outside hospital earlier this week, SPO2 was in the 70s. She was treated with 10 L/min of supplemental oxygen and BiPAP. CTA was performed, showing dense patchy infiltrates more so on the right lung. She was started on broad-spectrum antibiotics with vancomycin and Zosyn. She briefly received doxycycline as well. She was admitted to the ICU. A bronchoscopy was performed on 07/31 and so far results are relatively unrevealing. She was transferred out of the ICU after that, but bounced back after labile SPO2 readings. She requested to go back on BiPAP last night because she feels more comfortable with that.She has been requiring 4 L/min of oxygen pretty consistently. She seemed to have some improvement with a single dose of Solu-Medrol 40 mg with IV Lasix when she came back into the ICU. An inflammatory etiology of her pulmonary infiltrates has been contemplated by the ICU physician and pulmonary is consulted to comment on if a lung biopsy will be necessary. So far inflammatory work-up has revealednegative DAVID and rheumatoid factor. She has no autoimmune disease that runs in her family. She has not traveled recently. She denies any myalgias, arthritis, rash. No occupational exposures. The patient tells me she is feeling much better at this point. She is not as short of breath. Her cough has resolved now. Past Medical History: Diagnosis Date ??? Diabetes mellitus (CMS/HCC) No past surgical history on file. No medications prior to admission. No Known Allergies Social History Tobacco Use ??? Smoking status: Never Smoker ??? Smokeless tobacco: Never Used Substance Use Topics ??? Alcohol use: Not Currently No family history on file. Review of Systems: Review of Systems Constitutional: Positive for malaise/fatigue. Negative for chills and fever. HENT: Negative. Eyes: Negative. Respiratory: Positive for shortness of breath. Negative for cough. Cardiovascular: Negative for chest pain. Gastrointestinal: Positive for diarrhea. Negative for abdominal pain. Genitourinary: Negative. Musculoskeletal: Negative for joint pain and myalgias. Skin: Negative for rash. Neurological: Negative. Endo/Heme/Allergies: Negative. Psychiatric/Behavioral: Negative. Medications: Scheduled Meds: ??? amLODIPine 10 mg Oral Daily ??? enoxaparin 40 mg Subcutaneous 2 times per day ??? hydroCHLOROthiazide 25 mg Oral Daily ??? insulin glargine 10 Units Subcutaneous BID ??? insulin lispro 0-15 Units Subcutaneous 4x Daily AC and at bedtime ??? insulin lispro 5 Units Subcutaneous TID WC ??? normal saline 3-10 mL Intravenous Q8H ??? piperacillin-tazobactam 3.375 g Intravenous Q8H ??? senna-docusate 1 tablet Oral Nightly at bedtime ??? vancomycin 1,250 mg Intravenous Q24H ??? vancomycin pharmacy to dose Intravenous See Admin Instructions Continuous Infusions: PRN Meds: acetaminophen OR acetaminophen, albuterol sulfate HFA, hydrALAZINE, normal saline, ondansetron, perflutren lipid microsphere, polyethylene glycol OBJECTIVE Today's Weight: Last Recorded Weight 07/30/22 0000 Weight: 122.5 kg (270 lb 1 oz) Vital signs in the last 24 hours: Temp: [96.8 ??F (36 ??C)-98.4 ??F (36.9 ??C)] 98 ??F (36.7 ??C) Pulse: [89-106] 89 Resp: [11-40] 23 BP: (114-169)/(59-108) 128/81 Physical Exam Constitutional: Appearance: Normal appearance. HENT: Head: Normocephalic and atraumatic. Mouth/Throat: Mouth: Mucous membranes are moist. Eyes: Pupils: Pupils are equal, round, and reactive to light. Cardiovascular: Rate and Rhythm: Normal rate and regular rhythm. Heart sounds: No murmur heard. Pulmonary: Effort: Pulmonary effort is normal. No respiratory distress. Breath sounds: No wheezing, rhonchi or rales. Abdominal: General: There is no distension. Palpations: Abdomen is soft. Tenderness: There is no abdominal tenderness. Musculoskeletal: General: Swelling present. Lymphadenopathy: Cervical: No cervical adenopathy. Skin: General: Skin is warm and dry. Neurological: General: No focal deficit present. Mental Status: She is alert and oriented to person, place, and time. Psychiatric: Mood and Affect: Mood normal. Labs and Cultures: Recent Results (from the past 72 hour(s)) URINE DRUG SCREEN (TOXICOLOGY) Collection Time: 07/30/22 8:55 AM Result Value Ref Range PHENCYCLIDINE PCP (U) NEGATIVE NEGATIVE BENZODIAZEPINES SCREEN (U) NEGATIVE NEGATIVE COCAINE METABOLITES (U) NEGATIVE NEGATIVE AMPHETAMINE (U) NEGATIVE NEGATIVE CANNABINOIDS SCREEN (U) NEGATIVE NEGATIVE OPIATE SCREEN (U) NEGATIVE NEGATIVE BARBITURATES SCREEN (U) NEGATIVE NEGATIVE URINE TOX COMMENT Unconfirmed screening results are to be used only for medical purposes. CUTOFF CONCENTRATION Cut-off Concentration for a positive result HIV 1 ANTIGEN(S), WITH HIV-1 AND HIV-2 ANTIBODIES Collection Time: 07/30/22 8:55 AM Result Value Ref Range HIV 1/2 AB+ HIV1 P24 AG NON-REACTIVE NON-REACTIVE POCT glucose Collection Time: 07/30/22 12:09 PM Result Value Ref Range GLUCOSE POC 325 (H) 70 - 109 CULTURE RESPIRATORY W/ GRAM STAIN Collection Time: 07/30/22 4:25 PM Specimen: SPUTUM, EXPECTORATED Result Value Ref Range Spec. Description SPUTUM, EXPECTORATED Special Requests: NO SPECIAL REQUEST Gram Stain Result >25 NEUTROPHILS PER LPF Gram Stain Result <10 EPITHELIAL CELLS PER LPF Gram Stain Result FEW GRAM POSITIVE COCCI IN PAIRS Gram Stain Result RARE GRAM NEGATIVE RODS Culture Result: MANY STREPTOCOCCI, ALPHA HEMOLYTIC Culture Result: MANY MICROCOCCUS SPECIES Culture Result: MANY NEISSERIA SPECIES, NOT MENINGITIDIS Culture Result: MODERATE PRESUMPTIVE STAPHYLOCOCCUS SPECIES POCT glucose Collection Time: 07/30/22 5:19 PM Result Value Ref Range GLUCOSE POC 210 (H) 70 - 109 POCT glucose Collection Time: 07/30/22 10:16 PM Result Value Ref Range GLUCOSE POC 81 70 - 109 CYTOLOGY GENERIC Collection Time: 07/31/22 12:00 AM Result Value Ref Range CYTOLOGY OTHER [facility] Department of Laboratory Medicine [address] [place] [address] , extension [phone] Pathology Report Non-gynecologic Cytology Report Name: LEEROY CANALES Specimen #: [id number] Age: 11 1990 (Age: 31) Location: [address] Sex: F Procedure Date: 07/31/2022 Hospital #: [id number] Date Received: 07/31/2022 Date Reported: 08/01/2022 Provider: TONO DAWKINS MD Source: LUNG, RIGHT UPPER LOBE, BRONCHOALVEOLAR LAVAGE Clinical History: Acute respiratory failure Gross Ernesto cription: SPECIMEN RECEIVED: 10 cc's of pink mucoid fluid SLIDES PREPARED: 1 cytospins and 1 ThinPrep STAINS: Papanicolaou, GMS This case was interpreted and signed out at [facility], [address] [place] [address], [phone]. FINAL DIAGNOSIS: LUNG, RIGHT UPPER LOBE, BRONCHOALVEOLAR LAVAGE: - ADEQUATE FOR EVALUATION. - NO MALIGNANT CELLS IDENTIFIED. - GMS STAIN IS NEGATIVE FOR FUNGAL FORMS. - NO VIRAL INCLUSIONS IDENTIFIED. - ACUTE INFLAMMATION. - DIFFERENTIAL CELL COUNT: - 53% NEUTROPHILS. - 43% MACROPHAGES. - 5% LYMPHOCYTES. Electronically Signed Out ROBB SAUNDERS MD ANTINUCLEAR ANTIBODY WI RFX Collection Time: 07/31/22 4:50 AM Result Value Ref Range DAVID <0.07 DNA (DS) ANTIBODY 0.8 IU/ML RHEUMATOID FACTOR, QUANT Collection Time: 07/31/22 4:50 AM Result Value Ref Range RHEUMATOID FACTOR <10 <15 IU/ML CBC W/DIFF AUTOMATED Collection Time: 07/31/22 4:50 AM Result Value Ref Range WBC 18.2 (H) 4.0 - 10.8 x10'3/uL RBC 3.53 (L) 4.10 - 5.40 x10'6/uL HGB 9.9 (L) 12.0 - 16.0 G/DL HCT 30.8 (L) 36.0 - 47.0 % MCV 87.3 78.0 - 100.0 FL MCH 28.0 27.0 - 31.0 PG MCHC 32.1 (L) 33.0 - 36.0 G/DL RDW 13.4 11.5 - 14.5 % PLT 421 (H) 150 - 350 x10'3/uL MPV 10.5 (H) 7.4 - 10.4 FL ABS. NEUTROPHILS 13.96 (H) 1.60 - 8.30 x10'3/uL ABS. LYMPHOCYTES 2.02 0.80 - 4.70 x10'3/uL ABS. MONOCYTES 1.96 (H) 0.00 - 1.50 x10'3/uL ABS. EOSINOPHILS 0.14 0.00 - 0.40 x10'3/uL ABS. BASOPHILS 0.03 0.00 - 0.20 x10'3/uL ABS. IMMATURE GRANULOCYTES 0.10 (H) 0.00 - 0.03 x10'3/uL ABS. NUCLEATED RBC'S 0.00 0.0 x10'3/uL COMPREHENSIVE METABOLIC PANEL Collection Time: 07/31/22 4:50 AM Result Value Ref Range SODIUM 140 136 - 145 MMOL/L POTASSIUM 3.3 (L) 3.5 - 5.1 MMOL/L CHLORIDE S/P/B 108 (H) 98 - 107 MMOL/L CO2 27.6 21.0 - 32.0 MMOL/L GLUCOSE 84 74 - 106 MG/DL BUN 18 7 - 18 MG/DL CREATININE S/P/B 1.54 (H) 0.55 - 1.02 MG/DL CALCIUM 8.4 (L) 8.5 - 10.1 MG/DL BILIRUBIN TOTAL S/P/B 0.3 0.2 - 1.0 MG/DL ALKALINE PHOSPHATASE S/P/B 67 37 - 98 U/L AST 18 15 - 37 U/L ALT 16 13 - 56 U/L TOTAL PROTEIN S/P/B 5.6 (L) 6.4 - 8.2 G/DL ALBUMIN S/P/B 1.4 (L) 3.4 - 5.0 G/DL ANION GAP 4.4 (L) 5.0 - 15.0 MMOL/L OSMOLALITY (CALC) 291 MOSM/KG GFR ESTIMATE 47 (L) >90 ML/MIN/1.73 M2 GFR NOTES GFR REFERENCES: POCT glucose Collection Time: 07/31/22 6:24 AM Result Value Ref Range GLUCOSE POC 97 70 - 109 POCT glucose Collection Time: 07/31/22 8:37 AM Result Value Ref Range GLUCOSE POC 73 70 - 109 CULTURE, QUANTITATIVE W/ GRAM STAIN Collection Time: 07/31/22 11:48 AM Specimen: BRONCHOALVEO LAV, RT UPP ANTERIOR SEGMENT Result Value Ref Range Spec. Description BRONCHOALVEO LAV, RT UPP: ANTERIOR SEGMENT Special Requests: NO SPECIAL REQUEST Gram Stain Result <10 EPITHELIAL CELLS PER LPF Gram Stain Result 10-25 NEUTROPHILS PER LPF Gram Stain Result NO ORGANISMS SEEN Culture Result: NO GROWTH 1 DAY POCT glucose Collection Time: 07/31/22 11:51 AM Result Value Ref Range GLUCOSE POC 98 70 - 109 POCT glucose Collection Time: 07/31/22 2:46 PM Result Value Ref Range GLUCOSE POC 78 70 - 109 POCT glucose Collection Time: 07/31/22 9:50 PM Result Value Ref Range GLUCOSE POC 163 (H) 70 - 109 ARTERIAL BLOOD GAS Collection Time: 07/31/22 10:50 PM Result Value Ref Range PH ARTERIAL 7.47 (H) 7.35 - 7.45 PCO2 33.1 (L) 35.0 - 45.0 MMHG PO2 62.2 (L) 83.0 - 108.0 MMHG BICARB-ARTERIAL 24.0 22 - 26 MMOL/L TCO2 25.0 23 - 27 MMOL/L BE/BASE EXCESS 1.1 0 - 2 MMOL/L O2 Saturation 93 (L) 95 - 98 % IMMUNOGLOBULINS IGA IGG IGM Collection Time: 07/31/22 10:53 PM Result Value Ref Range IGA 397.0 70.0 - 400.0 MG/DL IGG 663.0 (L) 700.0 - 1,600.0 MG/DL IGM 64.8 40.0 - 230.0 MG/DL POCT glucose Collection Time: 07/31/22 11:21 PM Result Value Ref Range GLUCOSE POC 147 (H) 70 - 109 Vancomycin Random Level Collection Time: 08/01/22 6:46 AM Result Value Ref Range VANCOMYCIN RANDOM 22.9 MCG/ML CBC W/DIFF AUTOMATED Collection Time: 08/01/22 6:46 AM Result Value Ref Range WBC 13.1 (H) 4.0 - 10.8 x10'3/uL RBC 3.50 (L) 4.10 - 5.40 x10'6/uL HGB 9.8 (L) 12.0 - 16.0 G/DL HCT 30.8 (L) 36.0 - 47.0 % MCV 88.0 78.0 - 100.0 FL MCH 28.0 27.0 - 31.0 PG MCHC 31.8 (L) 33.0 - 36.0 G/DL RDW 13.5 11.5 - 14.5 % PLT 414 (H) 150 - 350 x10'3/uL MPV 10.4 7.4 - 10.4 FL ABS. NEUTROPHILS 12.31 (H) 1.60 - 8.30 x10'3/uL ABS. LYMPHOCYTES 0.51 (L) 0.80 - 4.70 x10'3/uL ABS. MONOCYTES 0.20 0.00 - 1.50 x10'3/uL ABS. EOSINOPHILS 0.00 0.00 - 0.40 x10'3/uL ABS. BASOPHILS 0.01 0.00 - 0.20 x10'3/uL ABS. IMMATURE GRANULOCYTES 0.05 (H) 0.00 - 0.03 x10'3/uL ABS. NUCLEATED RBC'S 0.00 0.0 x10'3/uL BASIC METABOLIC PANEL Collection Time: 08/01/22 6:46 AM Result Value Ref Range SODIUM 140 136 - 145 MMOL/L POTASSIUM 3.8 3.5 - 5.1 MMOL/L CHLORIDE S/P/B 110 (H) 98 - 107 MMOL/L CO2 24.0 21.0 - 32.0 MMOL/L GLUCOSE 128 (H) 74 - 106 MG/DL BUN 17 7 - 18 MG/DL CREATININE S/P/B 1.54 (H) 0.55 - 1.02 MG/DL CALCIUM 8.7 8.5 - 10.1 MG/DL ANION GAP 6.0 5.0 - 15.0 MMOL/L OSMOLALITY (CALC) 293 MOSM/KG GFR ESTIMATE 47 (L) >90 ML/MIN/1.73 M2 GFR NOTES GFR REFERENCES: MAGNESIUM Collection Time: 08/01/22 6:46 AM Result Value Ref Range MAGNESIUM 2.2 1.6 - 2.6 MG/DL PHOSPHORUS, INORGANIC PHOSPHATE Collection Time: 08/01/22 6:46 AM Result Value Ref Range PHOSPHORUS 4.6 2.5 - 4.9 MG/DL PROTIME/INR, VENOUS Collection Time: 08/01/22 6:46 AM Result Value Ref Range Protime 13.2 (H) 9.4 - 12.5 SEC INR 1.2 (H) 0.8 - 1.1 PROCALCITONIN (PCT) Collection Time: 08/01/22 6:46 AM Result Value Ref Range Procalcitonin 0.09 <0.50 NG/ML PTH - INTACT Collection Time: 08/01/22 6:46 AM Result Value Ref Range PTH INTACT 67.1 18.4 - 80.1 PG/ML ARTERIAL BLOOD GAS Collection Time: 08/01/22 6:46 AM Result Value Ref Range PH ARTERIAL 7.43 7.35 - 7.45 PCO2 38.1 35.0 - 45.0 MMHG PO2 59.7 (L) 83.0 - 108.0 MMHG BICARB-ARTERIAL 24.5 22 - 26 MMOL/L TCO2 25.7 23 - 27 MMOL/L BE/BASE EXCESS 0.8 0 - 2 MMOL/L O2 Saturation 91 (L) 95 - 98 % POCT glucose Collection Time: 08/01/22 8:17 AM Result Value Ref Range GLUCOSE POC 129 (H) 70 - 109 URINALYSIS Collection Time: 08/01/22 2:20 PM Result Value Ref Range COLOR (U) LIGHT YELLOW TRANSPARENCY SLIGHTLY CLOUDY Specific [place] (U) 1.015 1.002 - 1.035 U PH 6.0 5 - 8 PROTEIN (U) 300 (A) NEGATIVE URINE GLUCOSE 100 (A) NEGATIVE MG/DL U KETONES TRACE (A) NEGATIVE BILIRUBIN (U) NEGATIVE NEGATIVE BLOOD 2+ (A) NEGATIVE NITRITES NEGATIVE NEGATIVE UROBILINOGEN NORMAL 0 - 1 EU/DL LEUKOCYTE ESTERASE TRACE (A) NEGATIVE RBC/HPF 16 (H) 0 - 3 /HPF WBC/HPF 7 (H) 0 - 6 /HPF BACTERIA (URINE) PRESENT /HPF SQUAMOUS EPITHELIALS 13 Budding Yeast PRESENT WBC Clumps PRESENT HYALINE CASTS 4 POCT glucose Collection Time: 08/01/22 3:12 PM Result Value Ref Range GLUCOSE POC 176 (H) 70 - 109 POCT glucose Collection Time: 08/01/22 7:57 PM Result Value Ref Range GLUCOSE POC 202 (H) 70 - 109 POCT glucose Collection Time: 08/02/22 7:01 AM Result Value Ref Range GLUCOSE POC 209 (H) 70 - 109 Microbiology Results (last 14 days) Procedure Component Value Units Date/Time MRSA PCR nares Screening [[id number]] Collected: 08/01/22 0958 Order Status: Sent Lab Status: In process Updated: 08/01/22 1041 Specimen: NASAL CULTURE, QUANTITATIVE W/ GRAM STAIN [[id number]] Collected: 07/31/22 1148 Order Status: Completed Lab Status: Preliminary result Updated: 08/01/22 1401 Specimen: BRONCHOALVEO LAV, RT UPP Spec. Description BRONCHOALVEO LAV, RT UPP: ANTERIOR SEGMENT Special Requests: NO SPECIAL REQUEST Gram Stain Result <10 EPITHELIAL CELLS PER LPF Gram Stain Result 10-25 NEUTROPHILS PER LPF Gram Stain Result NO ORGANISMS SEEN Culture Result: NO GROWTH 1 DAY CULTURE, FUNGUS [[id number]] Collected: 07/31/22 1148 Order Status: Sent Lab Status: In process Updated: 07/31/22 1228 Specimen: BRONCHOALVEO LAV, RT UPP CULTURE TB/AFB OTHER (TYPE IN COMMENTS) [[id number]] Collected: 07/31/22 1148 Order Status: Sent Lab Status: In process Updated: 07/31/22 1230 Specimen: BRONCHOALVEO LAV, RT UPP SMEAR,FLUOR STAIN,ACID FAST [[id number]] Collected: 07/31/22 1148 Order Status: Sent Lab Status: In process Updated: 07/31/22 1230 Specimen: BRONCHOALVEO LAV, RT UPP CULTURE CMV [[id number]] Collected: 07/31/22 1148 Order Status: No result Lab Status: In process Updated: 08/01/22 1147 CULTURE HERPES [[id number]] Collected: 07/31/22 1148 Order Status: No result Lab Status: In process Updated: 08/01/22 1150 CULTURE VIRAL RESPIRATORY RAPID [[id number]] Collected: 07/31/22 1148 Order Status: No result Lab Status: In process Updated: 08/01/22 1152 CELL COUNT W/ DIFF BODY FLUID [[id number]] Collected: 07/31/22 1135 Order Status: Canceled Lab Status: No result Specimen: ASPIRATE CULTURE RESPIRATORY W/ GRAM STAIN [[id number]] Collected: 07/30/22 1625 Order Status: Completed Lab Status: Preliminary result Updated: 08/01/22 1455 Specimen: SPUTUM, EXPECTORATED Spec. Description SPUTUM, EXPECTORATED Special Requests: NO SPECIAL REQUEST Gram Stain Result >25 NEUTROPHILS PER LPF Gram Stain Result <10 EPITHELIAL CELLS PER LPF Gram Stain Result -- FEW GRAM POSITIVE COCCI IN PAIRS Gram Stain Result -- RARE GRAM NEGATIVE RODS Culture Result: -- MANY STREPTOCOCCI, ALPHA HEMOLYTIC Culture Result: -- MANY MICROCOCCUS SPECIES Culture Result: -- MANY NEISSERIA SPECIES, NOT MENINGITIDIS Culture Result: -- MODERATE PRESUMPTIVE STAPHYLOCOCCUS SPECIES BIOFIRE PCR UPPER RESPIRATORY PROFILE (RESPIRATORY PCR PANEL 2) [[id number]] Collected: 07/30/22 0745 Order Status: Completed Lab Status: Final result Updated: 07/30/22 0908 Specimen: NASOPHARYNGEAL SWAB ADENOVIRUS PCR (RESP) NOT DETECTED CORONAVIRUS 229E PCR (RESP) NOT DETECTED CORONAVIRUS HKU1 PCR (RESP) NOT DETECTED CORONAVIRUS NL63 PCR (RESP) NOT DETECTED CORONAVIRUS OC43 PCR (RESP) NOT DETECTED METAPNEUMOVIRUS PCR (RESP) NOT DETECTED RHINOVIRUS/ENTEROVIRUS PCR (RESP) NOT DETECTED INFLUENZA A PCR (RESP) NOT DETECTED INFLUENZA B PCR (RESP) NOT DETECTED PARAINFLUENZA 1 PCR (RESP) NOT DETECTED PARAINFLUENZA 2 PCR (RESP) NOT DETECTED PARAINFLUENZA 3 PCR (RESP) NOT DETECTED PARAINFLUENZA 4 PCR (RESP) NOT DETECTED RSV PCR (RESP) NOT DETECTED B PARAPERTUSIS PCR (RESP) NOT DETECTED BORDETELLA PERTUSSIS PCR (RESP) NOT DETECTED CHLAMYDOPHILA PNEUMONIAE PCR (RESP) NOT DETECTED MYCOPLASMA PNEUMONIAE PCR (RESP) NOT DETECTED CORONAVIRUS SARS COV 2 PCR (RESP) NOT DETECTED FIRST TEST UNKNOWN EMPLOYED IN HEALTHCARE NO SYMPTOMATIC DEFINED BY CDC UNKNOWN HOSPITALIZATION STATUS YES PATIENT IN ICU YES RESIDENT OF CONGREGATE CARE NO NOT STREP PNEUMO AG URINE [[id number]] Collected: 07/29/22 2305 Order Status: Completed Lab Status: Final result Updated: 07/30/22 1321 Specimen: URINE, FORTUNE CATH S. PNEUMONIAE URINARY AG NEGATIVE Comment: PRESUMPTIVE NEGATIVE FOR PNEUMOCOCCAL PNEUMONIA, SUGGESTING NO CURRENT OR RECENT PNEUMOCOCCAL INFECTION. INFECTION DUE TO STREPTOCOCCUS PNEUMONIA CANNOT BE RULED OUT SINCE THE ANTIGEN PRESENT IN THE SAMPLE MAY BELOW THE DETECTION LIMIT OF THE TEST. Specimen Type URINE FORTUNE CATH MRSA SCREENING [[id number]] Collected: 07/29/22 2205 Order Status: Completed Lab Status: Final result Updated: 07/30/22 113 Specimen: NASAL SPECIMEN SOURCE RESPIRATORY, NOSE MRSA BY PCR, NASAL METHICILLIN RESISTANT STAPH AUREUS DETECTED. Comment: CRITICAL RESULT, SPECIMEN DATE, TIME WERE READ BACK BY AMADOR SAMUEL AT 1134 ON [id number]. DC CULTURE, BACTERIA, BLOOD [[id number]] Collected: 07/29/22 1350 Order Status: Completed Lab Status: Preliminary result Updated: 08/01/22 09 Specimen: BLOOD Spec. Description BLOOD Special Requests: NO SPECIAL REQUEST Culture Result: NO GROWTH 3 DAYS CULTURE, BACTERIA, BLOOD [[id number]] Collected: 07/29/22 1350 Order Status: Completed Lab Status: Preliminary result Updated: 08/01/22 09 Specimen: BLOOD Spec. Description BLOOD Special Requests: NO SPECIAL REQUEST Culture Result: NO GROWTH 3 DAYS CORONAVIRUS (COVID-19) RAPID ANTIGEN [IN HOUSE] [[id number]] Collected: 07/29/22 1325 Order Status: Completed Lab Status: Final result Updated: 07/29/22 1406 Specimen: NASAL CORONAVIRUS ANTIGEN IA NEGATIVE Comment: NEGATIVE RESULTS DO NOT RULE OUT [...] AUTHORIZATION (EUA) FOR USE BY AUTHORIZED LABORATORIES. Specimen Type NASAL FIRST TEST NO EMPLOYED IN HEALTHCARE YES SYMPTOMATIC DEFINED BY CDC YES HOSPITALIZATION STATUS YES RESIDENT OF [facility] NO UNKNOWN INFLUENZA A & B [[id number]] Collected: 07/29/22 1325 Order Status: Completed Lab Status: Final result Updated: 07/29/22 1406 Specimen: NASAL Specimen Type NASOPHARYNX INFLUENZA A NEGATIVE INFLUENZA B NEGATIVE Imaging: CXR by my read from today shows improving right-sided infiltrate as compared to 2 days ago. BAL cultures no growth to date. Cytology shows no malignancy. Cell count is 53% neutrophils, 43% macrophage, no eosinophils noted. ABG shows pH of 7.43, PCO2 38, PO2 59 Creatinine plateauing at 1.54 WBC 13.1, down trended No peripheral eosinophilia DAVID negative Rheumatoid factor less than 10 Echocardiogram shows EF of 61, PASP estimated at 30 mmHg, RV size and function is normal. Signed LEXUS DELUNA MD 08/02/2022 Consults documented in this encounter Nursing Notes * Demetri Oliver RN - 08/07/2022 8:40 PM CDT Patient alert, oriented and not in distress. Ready for discharge. PICC line and peripheral IV line removed. Discharge instructions provided and handed medications. Patient verbalized understanding. 2044 [facility] family picked her up safely. * Dorie Canales RN - 07/31/2022 11:47 AM CDT 11:22 Pt prepped for bronchoscopy. Pulmonary rehab and Dr Bejarano at bedside. Time out performed, consent signed. 11:29 Medications given, see JAN. 11:33 medications given, see JAN. 11:34 Bronchoscopy started. 11:36 Medications given, see MAR. 11:41 Bronchoscopy completed. No events during procedure. 11:51 Pt returned to 4L NC O2. documented in this encounter Plan of Treatment Not on file documented as of this encounter Goals Goal Patient Goal Type Associated Problems Recent Progress Patient-Stated? Author Safety ? Patient/family will have appropriate support at home upon discharge Lifestyle No Ashlee Hein RN documented as of this encounter Procedures Procedure Name Priority Date/Time Associated Diagnosis Comments POCT GLUCOSE - MEJIA DOCKED DEVICE Routine 08/07/2022 4:12 PM CDT POCT GLUCOSE - MEJIA DOCKED DEVICE Routine 08/07/2022 12:04 PM CDT POCT GLUCOSE - MEJIA DOCKED DEVICE Routine 08/07/2022 5:56 AM CDT POCT GLUCOSE - MEJIA DOCKED DEVICE Routine 08/06/2022 8:47 PM CDT POCT GLUCOSE - MEJIA DOCKED DEVICE Routine 08/06/2022 5:12 PM CDT POCT GLUCOSE - MEJIA DOCKED DEVICE Routine 08/06/2022 10:55 AM CDT POCT GLUCOSE - MEJIA DOCKED DEVICE Routine 08/06/2022 5:36 AM CDT BASIC METABOLIC PANEL Routine 08/06/2022 4:42 AM CDT CBC W/DIFF AUTOMATED Routine 08/06/2022 4:42 AM CDT PHOSPHORUS, INORGANIC PHOSPHATE Routine 08/06/2022 4:42 AM CDT MAGNESIUM Routine 08/06/2022 4:42 AM CDT POCT GLUCOSE - MEJIA DOCKED DEVICE Routine 08/05/2022 8:53 PM CDT POCT GLUCOSE - MEJIA DOCKED DEVICE Routine 08/05/2022 4:19 PM CDT POCT GLUCOSE - MEJIA DOCKED DEVICE Routine 08/05/2022 11:31 AM CDT POCT GLUCOSE - MEJIA DOCKED DEVICE Routine 08/05/2022 11:04 AM CDT POCT GLUCOSE - MEJIA DOCKED DEVICE Routine 08/05/2022 6:11 AM CDT XR CHEST PORTABLE Today 08/05/2022 5:4 6 AM CDT PRO-BRAIN NATRIURETIC PEPTIDE Routine 08/05/2022 4:43 AM CDT BASIC METABOLIC PANEL Routine 08/05/2022 4:43 AM CDT C-REACTIVE PROTEIN Routine 08/05/2022 4: 43 AM CDT HOME O2 EVAL Routine 08/05/2022 12:30 AM CDT POCT GLUCOSE - MEJIA DOCKED DEVICE Routine 08/04/2022 8:47 PM CDT POCT GLUCOSE - MEJIA DOCKED DEVICE Routine 08/04/2022 5:02 PM CDT POCT GLUCOSE - MEJIA DOCKED DEVICE Routine 08/04/2022 10:50 AM CDT XR CHEST PORTABLE Today 08/04/2022 6:3 7 AM CDT POCT GLUCOSE - MEJIA DOCKED DEVICE Routine 08/04/2022 5:48 AM CDT IRON SAT PANEL (IRON,IBC,%SAT) Routine 08/04/2022 4:46 AM CDT VITAMIN B-12 Routine 08/04/2022 4:46 AM CDT TRANSFERRIN Routine 08/04/2022 4:46 AM CDT BASIC METABOLIC PANEL Routine 08/04/2022 4:46 AM CDT FOLIC ACID SERUM Routine 08/04/2022 4:46 AM CDT PHOSPHORUS, INORGANIC PHOSPHATE Routine 08/04/2022 4:46 AM CDT MAGNESIUM Routine 08/04/2022 4:46 AM CDT FERRITIN Routine 08/04/2022 4:46 AM CDT POCT GLUCOSE - MEJIA DOCKED DEVICE Routine 08/03/2022 8:21 PM CDT POCT GLUCOSE - MEJIA DOCKED DEVICE Routine 08/03/2022 4:09 PM CDT URINE BACTERIA CULTURE Nurse Collected Priority 08/03/2022 2:47 PM CDT US RETROPERITONE[employer] L[employer] Today 1:37 PM CDT POCT GLUCOSE - MEJIA DOCKED DEVICE Routine 08/03/2022 11:31 AM CDT POCT GLUCOSE - MEJIA DOCKED DEVICE Routine 08/03/2022 7:00 AM CDT PRO-BRAIN NATRIURETIC PEPTIDE Routine 08/03/2022 3:48 AM CDT BASIC METABOLIC PANEL Routine 08/03/2022 3:48 AM CDT CBC W/DIFF AUTOMATED Routine 08/03/2022 3:48 AM CDT PHOSPHORUS, INORGANIC PHOSPHATE Routine 08/03/2022 3:48 AM CDT MAGNESIUM Routine 08/03/2022 3:48 AM CDT POCT GLUCOSE - MEJIA DOCKED DEVICE Routine 08/02/2022 9:53 PM CDT POCT GLUCOSE - MEJIA DOCKED DEVICE Routine 08/02/2022 4:05 PM CDT POCT GLUCOSE - MEJIA DOCKED DEVICE Routine 08/02/2022 12:27 PM CDT FUNGAL PROFILE Routine 08/02/2022 10:40 AM CDT PRO-BRAIN NATRIURETIC PEPTIDE Routine 08/02/2022 10:40 AM CDT POCT GLUCOSE - MEJIA DOCKED DEVICE Routine 08/02/2022 7:01 AM CDT XR CHEST PORTABLE Today 08/02/2022 5:4 8 AM CDT POCT GLUCOSE - MEJIA DOCKED DEVICE Routine 08/01/2022 7:57 PM CDT POCT GLUCOSE - MEJIA DOCKED DEVICE Routine 08/01/2022 3:12 PM CDT HC URINALYSIS AUTO W/MICRO Nurse Collected Priority 08/01/2022 2:20 PM CDT USV VAST TEAM PICC INSERT >5YR Routine 08/01/2022 1:49 PM CDT MRSA SCREENING Nurse Collected Priority 08/01/2022 9:58 AM CDT POCT GLUCOSE - MEJIA DOCKED DEVICE Routine 08/01/2022 8:17 AM CDT PROCALCITONIN (PCT) Routine 08/01/2022 6 :46 AM CDT PTH - INTACT Routine 08/01/2022 6:46 AM CDT PROTHROMBIN TIME, VENOUS Routine 08/01/2022 6:46 AM CDT BASIC METABOLIC PANEL Routine 08/01/2022 6:46 AM CDT BLOOD GAS, ARTERIAL LAB Routine 08/01/2022 6:46 AM CDT CBC W/DIFF AUTOMATED Routine 08/01/2022 6:46 AM CDT PHOSPHORUS, INORGANIC PHOSPHATE Routine 08/01/2022 6:46 AM CDT MAGNESIUM Routine 08/01/2022 6:46 AM CDT VANCOMYCIN TIMED 08/01/2022 6:46 AM CDT XR CHEST PORTABLE Today 08/01/2022 6:2 8 AM CDT POCT GLUCOSE - EMJIA DOCKED DEVICE Routine 07/31/2022 11:21 PM CDT ANTI-GBM Routine 07/31/2022 10:53 PM CDT IMMUNOGLOBULINS IGA IGG IGM Routine 07/31/2022 10:53 PM CDT BLOOD GAS, ARTERIAL LAB STAT 07/31/2022 10:50 PM CDT POCT GLUCOSE - MEJIA DOCKED DEVICE Routine 07/31/2022 9:50 PM CDT XR CHEST PORTABLE Today 07/31/2022 2:5 0 PM CDT POCT GLUCOSE - MEJIA DOCKED DEVICE Routine 07/31/2022 2:46 PM CDT BRONCHOSCOPY PFT Routine 07/31/2022 12:51 PM CDT POCT GLUCOSE - MEJIA DOCKED DEVICE Routine 07/31/2022 11:51 AM CDT CULTURE, QUANTITATIVE W/ GRAM STAIN Nurse Collected Priority 07/31/2022 11:48 AM CDT CULTURE VIRAL RESPIRATORY RAPID Routine 07/31/2022 11:48 AM CDT CULTURE, FUNGUS Nurse Collected Priority 07/31/2022 11:48 AM CDT CULTURE HERPES Routine 07/31/2022 11:48 AM CDT CULTURE CMV Routine 07/31/2022 11:48 AM CDT CULTURE TB/AFB OTHER Routine 07/31/2022 11:48 AM CDT HC SMEAR ACID FAST/FLUOR-90 Routine 07/31/2022 11:48 AM CDT POCT GLUCOSE - MEJIA DOCKED DEVICE Routine 07/31/2022 8:37 AM CDT POCT GLUCOSE - MEJIA DOCKED DEVICE Routine 07/31/2022 6:24 AM CDT ANCA VASCULITIS PANEL Routine 07/31/2022 4:50 AM CDT ANTINUCLEAR ANTIBODY WI RFX Routine 07/31/2022 4:50 AM CDT RHEUMATOID FACTOR, QUANT Routine 07/31/2022 4:50 AM CDT CYCLIC CITRULLINATED PEPTIDE (CCP)ANTIBODY(IGG) Routine 07/31/2022 4:50 AM CDT COMPREHENSIVE METABOLIC PANEL Routine 07/31/2022 4:50 AM CDT CBC W/DIFF AUTOMATED Routine 07/31/2022 4:50 AM CDT CYTOLOGY GENERIC Routine 07/31/2022 12:00 AM CDT POCT GLUCOSE - MEJIA DOCKED DEVICE Routine 07/30/2022 10:16 PM CDT POCT GLUCOSE - MEJIA DOCKED DEVICE Routine 07/30/2022 5:19 PM CDT CULTURE RESPIRATORY W/ GRAM STAIN Nurse Collected Priority 07/30/2022 4:25 PM CDT POCT GLUCOSE - MEJIA DOCKED DEVICE Routine 07/30/2022 12:09 PM CDT USE ECHOCARDIOGRAM Routine 07/30/2022 11:32 AM CDT US SUZANNE DUPLEX LOW EXT GATO Today 07/30/2022 11:30 AM CDT HIV 1 ANTIGEN(S), WITH HIV-1 AND HIV-2 ANTIBODIES Routine 07/30/2022 8:55 AM CDT DRUG SCREEN RAPID Nurse Collected Priority 07/30/2022 8:55 AM CDT RESPIRATORY PCR PANEL 2 Nurse Collected Priority 07/30/2022 7:45 AM CDT POCT GLUCOSE - MEJIA DOCKED DEVICE Routine 07/30/2022 6:15 AM CDT XR CHEST PORTABLE TIMED 07/30/2022 5:2 7 AM CDT COMPREHENSIVE METABOLIC PANEL Routine 07/30/2022 5:10 AM CDT CBC W/DIFF AUTOMATED Routine 07/30/2022 5:10 AM CDT POCT GLUCOSE - MEJIA DOCKED DEVICE Routine 07/30/2022 12:01 AM CDT HISTOPLASMA ANTIGEN URINE Nurse Collected Priority 07/29/2022 11:05 PM CDT HC INFECT AGENT DETECT OPTICAL Nurse Collected Priority 07/29/2022 11:05 PM CDT HC PROTEIN TOTAL URINE Nurse Collected Priority 07/29/2022 11:05 PM CDT LEGIONELLA AG URINE Nurse Collected Priority 07/29/2022 11:05 PM CDT PARTIAL THROMBOPLASTIN TIME,PTT Routine 07/29/2022 10:35 PM CDT PROTHROMBIN TIME, VENOUS Routine 07/29/2022 10:35 PM CDT MRSA SCREENING Nurse Collected Priority 07/29/2022 10:05 PM CDT HEMOGLOBIN, GLYCOSYLATED Routine 07/29/2022 10:00 PM CDT C-REACTIVE PROTEIN, HIGH SENSI Routine 07/29/2022 10:00 PM CDT TROPONIN, QUANT Routine 07/29/2022 10:00 PM CDT THYROID STIM HORMONE TSH Routine 07/29/2022 10:00 PM CDT PHOSPHORUS, INORGANIC PHOSPHATE Routine 07/29/2022 10:00 PM CDT MAGNESIUM Routine 07/29/2022 10:00 PM CDT POCT GLUCOSE - MEJIA DOCKED DEVICE Routine 07/29/2022 9:38 PM CDT documented in this encounter Results * POCT glucose (08/07/2022 4:12 PM CDT) GLUCOSE POC 96 70 - 109 08/07/2022 4:15 PM CDT [facility] 08/07/2022 4:12 PM CDT Veena Truong MD POCT ORDERABLES - DEVICE Final R esult [facility] [address] [place] [address], [phone] * (ABNORMAL) POCT glucose (08/07/2022 12:04 PM CDT) GLUCOSE POC 137(H) 70 - 109 08/07/2022 12:06 PM CDT [facility] 08/07/2022 12:0 4 PM CDT us Veena Truong MD POCT ORDERABLES - DEVICE Final R esult Performing Organization Address [facility] Co de Phone Number [facility] [address] [place] [address], [place] [phone] * POCT glucose (08/07/2022 5:56 AM CDT) GLUCOSE POC 98 70 - 109 08/07/2022 6:46 AM CDT [facility] 08/07/2022 5:56 AM CDT us Veena Truong MD POCT ORDERABLES - DEVICE Final R esult Performing Organization Address [facility] de Phone Number [facility] [address] [place] [address], [place] [phone] * (ABNORMAL) POCT glucose (08/06/2022 8:47 PM CDT) GLUCOSE POC 189(H) 70 - 109 08/06/2022 8:48 PM CDT [facility] 08/06/2022 8:47 PM CDT us Veena Truong MD POCT ORDERABLES - DEVICE Final R esult Performing Organization Address [facility] Co de Phone Number [facility] [address] [place] [address], [place] [phone] * (ABNORMAL) POCT glucose (08/06/2022 5:12 PM CDT) GLUCOSE POC 180(H) 70 - 109 08/06/2022 5:14 PM CDT [facility] 08/06/2022 5:12 PM CDT us Veena Truong MD POCT ORDERABLES - DEVICE Final R esult Performing Organization Address [facility] de Phone Number [facility] [address] [place] [address], [phone] * (ABNORMAL) POCT glucose (08/06/2022 10:55 AM CDT) GLUCOSE POC 142(H) 70 - 109 08/06/2022 11:35 AM CDT [facility] 08/06/2022 10:5 5 AM CDT us Veena Truong MD POCT ORDERABLES - DEVICE Final R esult Performing Organization Address [facility] de Phone Number [facility] [address] [place] [address], [phone] * (ABNORMAL) POCT glucose (08/06/2022 5:36 AM CDT) GLUCOSE POC 119(H) 70 - 109 08/06/2022 5:43 AM CDT [facility] 08/06/2022 5:36 AM CDT us Nae Sotelo MD POCT ORDERABLES - DEVICE Fi nal Result Performing Organization Address [facility] de Phone Number [facility] [address] [place] [address], [place] [phone] * PHOSPHORUS, INORGANIC PHOSPHATE (08/06/2022 4:42 AM CDT) PHOSPHORUS 3.9 2.5 - 4.9 MG/DL 08/06/2022 5:31 AM CDT [facility] 08/06/2022 4:42 AM CDT us Nae Sotelo MD LABORATORY Final Resul t Performing Organization Address [facility] Co de Phone Number [facility] [address] [place] [address], [place] [phone] * MAGNESIUM (08/06/2022 4:42 AM CDT) MAGNESIUM 2.4 1.6 - 2.6 MG/DL 08/06/2022 5:31 AM CDT [facility] 08/06/2022 4:42 AM CDT us Nae Sotelo MD LABORATORY Final Resul t Performing Organization Address [facility] de Phone Number [facility] [address] [place] [address], [phone] * (ABNORMAL) BASIC METABOLIC PANEL (08/06/2022 4:42 AM CDT) SODIUM S/P/B 143 136 - 145 MMOL/L 08/06/2022 5:31 AM CDT [facility] POTASSIUM S/P/B 3.9 3.5 - 5.1 MMOL/L 08/06/2022 5:31 AM CDT [facility] CHLORIDE S/P/B 110(H) 98 - 107 MMOL/L 08/06/2022 5:31 AM CDT [facility] CO2 29.1 21.0 - 32.0 MMOL/L 08/06/2022 5:31 AM CDT [facility] GLUCOSE 106 74 - 106 MG/DL 08/06/2022 5:31 AM CDT [facility] BUN 12 7 - 18 MG/DL 08/06/2022 5:31 AM CDT [facility] CREATININE S/P/B 1.81(H) 0.55 - 1.02 MG/DL 08/06/2022 5:31 AM CDT [facility] CALCIUM S/P/B 8.3(L) 8.5 - 10.1 MG/DL 08/06/2022 5:31 AM CDT [facility] ANION GAP 3.9(L) 5.0 - 15.0 MMOL/L 08/06/2022 5:31 AM CDT [facility] OSMOLALITY (CALC) 296 MOSM/KG 022 5:31 AM CDT [facility] Comment:REFERENCE RANGE NOT ESTABLISHED GFR ESTIMATE 38(L) >90 ML/MIN/1. 73 M2 08/06/2022 5:31 AM CDT [facility] GFR NOTES GFR REFERENCE S: 08/06/2022 5:31 AM CDT [facility] Comment: THE ESTIMATED GFR IS CALCULATED USING THE 2020 CKD-EPI EQUATION. THE FOLLOWING CATEGORIES FOR GRADING RENAL FUNCTION ARE RECOMMENDED BY THE INTERNATIONAL SOCIETY OF NEPHROLOGY (KDIGO 2012 CLINICAL PRACTICE GUIDELINE). G1,NORMAL OR HIGH: >89 ml/min/1.73 m2 G2,MILDLY DECREASED: 60-89 ml/min/1.73 m2 G3A,MILDLY TO MODERATELY DECREASED: 45-59 ml/min/1.73 m2 G3B,MODERATELY TO SEVERELY DECREASED: 30-44 ml/min/1.73 m2 G4,SEVERELY DECREASED: 15-29 ml/min/1.73 m2 G5,KIDNEY FAILURE: <15 ml/min/1.73 m2 08/06/2022 4:42 AM CDT Nae Sotelo MD LABORATORY Final Resul t [facility] [address] [place] [address], [phone] * (ABNORMAL) CBC W/DIFF AUTOMATED (08/06/2022 4:42 AM CDT) WBC 9.1 4.0 - 10.8 x10'3/uL 08/06/2022 5:01 AM CDT [facility] RBC 3.27(L) 4.10 - 5.40 x10'6/uL 08/06/2022 5:01 AM CDT [facility] HGB 8.9(L) 12.0 - 16.0 G/DL 08/06/2022 5:01 AM CDT [facility] HCT 28.9(L) 36.0 - 47.0 % 08/06/2022 5:01 AM CDT [facility] MCV 88.4 78.0 - 100.0 FL 08/06/2022 5:01 AM CDT [facility] MCH 27.2 27.0 - 31.0 PG 08/06/2022 5:01 AM CDT [facility] MCHC 30.8(L) 33.0 - 36.0 G/DL 08/06/2022 5:01 AM CDT [facility] RDW 13.4 11.5 - 14.5 % 08/06/2022 5:01 AM CDT [facility] PLT 559(H) 150 - 350 x10'3/uL 08/06/2022 5:01 AM CDT [facility] MPV 9.3 7.4 - 10.4 FL 08/06/2022 5:01 AM CDT [facility] ABS. NEUTROPHILS 5.41 1.60 - 8.30 x10'3/uL 08/06/2022 5:01 AM CDT [facility] ABS. LYMPHOCYTES 2.28 0.80 - 4.70 x10'3/uL 08/06/2022 5:01 AM CDT [facility] ABS. MONOCYTES 1.02 0.00 - 1.50 x10'3/uL 08/06/2022 5:01 AM CDT [facility] ABS. EOSINOPHILS 0.31 0.00 - 0.40 x10'3/uL 08/06/2022 5:01 AM CDT [facility] ABS. BASOPHILS 0.03 0.00 - 0.20 x10'3/uL 08/06/2022 5:01 AM CDT [facility] ABS. IMMATURE GRANULOCYTES 0.04(H) 0.00 - 0.03 x10'3/uL 08/06/2022 5:01 AM CDT [facility] ABS. NUCLEATED RBC'S 0.00 0.0 x10'3/uL 08/06/2022 5:01 AM CDT [facility] 08/06/2022 4:42 AM CDT us Nae Sotelo MD LABORATORY Final Resul t Performing Organization Address [facility] de Phone Number [facility] [address] [place] [address], [phone] * (ABNORMAL) POCT glucose (08/05/2022 8:53 PM CDT) GLUCOSE POC 193(H) 70 - 109 08/05/2022 9:11 PM CDT [facility] 08/05/2022 8:53 PM CDT us Nae Sotelo MD POCT ORDERABLES - DEVICE Fi nal Result Performing Organization Address [facility] de Phone Number [facility] [address] [place] [address], [place] [phone] * POCT glucose (08/05/2022 4:19 PM CDT) GLUCOSE POC 92 70 - 109 08/05/2022 4:21 PM CDT [facility] 08/05/2022 4:19 PM CDT us Nae Sotelo MD POCT ORDERABLES - DEVICE Fi nal Result Performing Organization Address [facility] Co de Phone Number [facility] [address] [place] [address], [place] [phone] * (ABNORMAL) POCT glucose (08/05/2022 11:31 AM CDT) GLUCOSE POC 124(H) 70 - 109 08/05/2022 11:32 AM CDT [facility] 08/05/2022 11:3 1 AM CDT us Nae Sotelo MD POCT ORDERABLES - DEVICE Fi nal Result Performing Organization Address [facility]/ZIP Co de Phone Number [facility] [address] [place] [address], [place] [phone] * (ABNORMAL) POCT glucose (08/05/2022 11:04 AM CDT) GLUCOSE POC 130(H) 70 - 109 08/05/2022 11:32 AM CDT [facility] 08/05/2022 11:0 4 AM CDT us Nae Sotelo MD POCT ORDERABLES - DEVICE Fi nal Result Performing Organization Address [facility] Co de Phone Number [facility] [address] [place] [address], [place] [phone] * (ABNORMAL) POCT glucose (08/05/2022 6:11 AM CDT) GLUCOSE POC 263(H) 70 - 109 08/05/2022 6:14 AM CDT [facility] 08/05/2022 6:11 AM CDT us Nae Sotelo MD POCT ORDERABLES - DEVICE Fi nal Result Performing Organization Address City/[facility]/ZIP Co de Phone Number [facility] [address] [place] [address], [phone] * XR CHEST PORTABLE (08/05/2022 5:46 AM CDT) Anatomical Region Laterality Modality Chest Radiographic Nissa ging 08/05/2022 7:35 AM CDT Impressions 08/05/2022 7:36 AM CDT IMPRESSION: No remarkable change since yesterday's study. Ordered By: LEXUS DELUNA Interpreted By: Shane Lopez MD, 08/05/2022 7:35 AM Narrative 08/05/2022 7:36 AM CDT 08/05/2022, 5:44 AM. HISTORY: Pneumonia. Short of breath. Respiratory failure. Pulmonary infiltrate. Hypertension. EXAM: Erect portable AP chest. Correlation to study 08/04/2022. FINDINGS: PICC line is present entering the chest from the right subclavian approach, tip level SVC. Extensive infiltrative or congestive changes throughout the right lung and minimally in the perihilar region left lung similar to yesterday's study. The heart size is upper normal with a right ventricular configuration. No gross pleural effusion. No pneumothorax. Procedure Note Shane Lopez MD - 08/05/2022 08/05/2022, 5:44 AM. HISTORY: Pneumonia. Short of breath. Respiratory failure. Pulmonaryinfiltrate. Hypertension. EXAM: Erect portable AP chest. Correlation to study 08/04/2022. FINDINGS: PICC line is present entering the chest from the rightsubclavian approach, tip level SVC. Extensive infiltrative or congestive changes throughout the right lung andminimally in the perihilar region left lung similar to yesterday's study.The heart size is upper normal with a right ventricular configuration. Nogross pleural effusion. No pneumothorax. IMPRESSION: No remarkable change since yesterday's study. Ordered By: LEXUS DELUNA Interpreted By: Shane Lopez MD, 08/05/2022 7:35 AM Lexus Deluna MD GENERAL IMAGING Final Result * (ABNORMAL) C-REACTIVE PROTEIN (08/05/2022 4:43 AM CDT) C-REACTIVE PROTEIN 1.89(H) <0.80 mg/dL 08/05/2022 11:33 AM CDT [facility] 08/05/2022 4:43 AM CDT Diandra Daly MD LABORATORY Final Result Performing Organization Address [facility] Co de Phone Number [facility] [address] [place] [address], [phone] * (ABNORMAL) PRO-BRAIN NATRIURETIC PEPTIDE (PRO BNP) (08/05/2022 4:43 AM CDT) PRO-B TYPE NATRIURETIC PEPTIDE 2,264(H) <125 PG/ML 08/05/2022 11:33 AM CDT [facility] Comment: AGE INDEPENDENT: <300 PG/ML HAS A 99% NEGATIVE PREDICTIVE VALUE FOR EXCLUDING ACUTE CHF <50 YEARS: >450 PG/ML IS CONSISTENT WITH ACUTE CHF 50-75 YEARS: >900 PG/ML IS CONSISTENT WITH ACUTE CHF >75 YEARS: >1800 PG/ML IS CONSISTENT WITH ACUTE CHF IN PATIENTS WITH RENAL INSUFFICIENCY (GFR <60), >1200 PG/ML YIELDS A DIAGNOSTIC SENSITIVITY AND SPECIFICITY OF 89% AND 72% FOR ACUTE CHF. 08/05/2022 4:4 3 AM CDT Diandra Daly MD LABORATORY Final Result Performing Organization Address City/[facility]/ZIP Co de Phone Number [facility] [address] [place] [address], [phone] * (ABNORMAL) BASIC METABOLIC PANEL (08/05/2022 4:43 AM CDT) SODIUM S/P/B 143 136 - 145 MMOL/L 08/05/2022 5:54 AM CDT [facility] POTASSIUM S/P/B 3.8 3.5 - 5.1 MMOL/L 08/05/2022 5:54 AM T [facility] CHLORIDE S/P/B 111(H) 98 - 107 MMOL/L 08/05/2022 5:54 AM T [facility] CO2 25.8 21.0 - 32.0 MMOL/L 08/05/2022 5:54 AM T [facility] GLUCOSE 240(H) 74 - 106 MG/DL 08/05/2022 5:54 AM T [facility] BUN 13 7 - 18 MG/DL 08/05/2022 5:54 AM [facility] CREATININE S/P/B 2.00(H) 0.55 - 1.02 MG/DL 08/05/2022 5:54 AM T [facility] CALCIUM S/P/B 8.1(L) 8.5 - 10.1 MG/DL 08/05/2022 5:54 AM T [facility] ANION GAP 6.2 5.0 - 15.0 MMOL/L 08/05/2022 5:54 AM [facility] OSMOLALITY (CALC) 304 MOSM/KG 022 5:54 AM [facility] Comment:REFERENCE RANGE NOT ESTABLISHED GFR ESTIMATE 34(L) >90 ML/MIN/1. 73 M2 08/05/2022 5:54 AM T [facility] GFR NOTES GFR REFERENCE S: 08/05/2022 5:54 AM T [facility] Comment: THE ESTIMATED GFR IS CALCULATED USING THE 2020 CKD-EPI EQUATION. THE FOLLOWING CATEGORIES FOR GRADING RENAL FUNCTION ARE RECOMMENDED BY THE [employer]ATIONAL [employer]Y OF NEPHROLOGY (KDIGO 2012 CLINICAL PRACTICE GUIDELINE). G1,NORMAL OR HIGH: >89 ml/min/1.73 m2 G2,MILDLY DECREASED: 60-89 ml/min/1.73 m2 G3A,MILDLY TO MODERATELY DECREASED: 45-59 ml/min/1.73 m2 G3B,MODERATELY TO SEVERELY DECREASED: 30-44 ml/min/1.73 m2 G4,SEVERELY DECREASED: 15-29 ml/min/1.73 m2 G5,KIDNEY FAILURE: <15 ml/min/1.73 m2 08/05/2022 4:43 AM CDT us Nae Sotelo MD LABORATORY Final Resul t Performing Organization Address [facility] Co de Phone Number [facility] [address] [place] [address], [place] [phone] * (ABNORMAL) POCT glucose (08/04/2022 8:47 PM CDT) GLUCOSE POC 116(H) 70 - 109 08/04/2022 8:54 PM CDT [facility] 08/04/2022 8:47 PM CDT us Nae Sotelo MD POCT ORDERABLES - DEVICE Fi nal Result Performing Organization Address [facility] de Phone Number [facility] [address] [place] [address], [place] [phone] * POCT glucose (08/04/2022 5:02 PM CDT) GLUCOSE POC 82 70 - 109 08/04/2022 5:10 PM CDT [facility] 08/04/2022 5:02 PM CDT us Nae Sotelo MD POCT ORDERABLES - DEVICE Fi nal Result Performing Organization Address [facility] de Phone Number [facility] [address] [place] [address], [place] [phone] * (ABNORMAL) POCT glucose (08/04/2022 10:50 AM CDT) GLUCOSE POC 165(H) 70 - 109 08/04/2022 11:32 AM CDT [facility] 08/04/2022 10:5 0 AM CDT Nae Sotelo MD POCT ORDERABLES - DEVICE Fi nal Result [facility] [address] [place] [address], [id number] * XR CHEST PORTABLE (08/04/2022 6:37 AM CDT) Anatomical Region Laterality Modality Chest Radiographic Nissa ging 08/04/2022 7:01 AM CDT Impressions 08/04/2022 7:02 AM CDT IMPRESSION: Redemonstrated bilateral pulmonary opacities, which likely has not changed significantly given the low lung volumes on this study. Ordered By: NAE SOTELO Interpreted By: Golden Lindsay MD, 08/04/2022 7:01 AM Narrative 08/04/2022 7:02 AM CDT Examination: XR CHEST PORTABLE Exam time: 08/04/2022 6:35 AM Clinical history: Follow-up pneumonia and CHF. Hypoxic respiratory failure. Comparison: Radiographs August 02, 2022 and August 01, 2022. Technique: Upright AP image of the chest. Findings: A right PICC line appears in stable position. Cardiac silhouette is stable. Low lung volumes secondary to poor respiratory effort. Diffuse hazy bilateral pulmonary opacities are redemonstrated, likely not significantly changed given the low lung volumes on this study. No vascular congestion, pleural effusion or pneumothorax. Procedure Note Golden Lindsay MD - 08/04/2022 Examination: XR CHEST PORTABLE Exam time: 08/04/2022 6:35 AM Clinical history: Follow-up pneumonia and CHF. Hypoxic respiratoryfailure. Comparison: Radiographs August 02, 2022 and August 01, 2022. Technique: Upright AP image of the chest. Findings: A right PICC line appears in stable position. Cardiac silhouette isstable. Low lung volumes secondary to poor respiratory effort. Diffusehazy bilateral pulmonary opacities are redemonstrated, likely notsignificantly changed given the low lung volumes on this study. Novascular congestion, pleural effusion or pneumothorax. IMPRESSION: Redemonstrated bilateral pulmonary opacities, which likely has not changedsignificantly given the low lung volumes on this study. Ordered By: NAE SOTELO Interpreted By: Golden Lindsay MD, 08/04/2022 7:01 AM us Nae Sotelo MD GENERAL IMAGING Final Resul t * (ABNORMAL) POCT glucose (08/04/2022 5:48 AM CDT) Pathologist [facility] GLUCOSE POC 120(H) 70 - 109 08/04/2022 5:53 AM CDT [facility] 08/04/2022 5:48 AM CDT us Nae Sotelo MD POCT ORDERABLES - DEVICE Fi nal Result Performing Organization Address [facility] de Phone Number [facility] [address] [place] [address], [id number] * FOLIC ACID SERUM (08/04/2022 4:46 AM CDT) Pathologist [facility] FOLATE 7.2 3.1 - 17.5 NG/ML 08/04/2022 6:43 AM CDT [facility] 08/04/2022 4:46 AM CDT us Nae Sotelo MD LABORATORY Final Resul t Performing Organization Address [facility] Co de Phone Number [facility] [address] [place] [address], [phone] * VITAMIN B-12 (08/04/2022 4:46 AM CDT) VITAMIN B12 S/P/B 332 193 - 986 PG/ML 08/04/2022 6:43 AM CDT [facility] 08/04/2022 4:46 AM CDT us Nae Sotelo MD LABORATORY Final Resul t Performing Organization Address [facility] Co de Phone Number [facility] [address] [place] [address], [place] [phone] * (ABNORMAL) TRANSFERRIN (08/04/2022 4:46 AM CDT) TRANSFERRIN 142(L) 200 - 360 mg/dL 08/04/2022 6:10 AM CDT [facility] 08/04/2022 4:46 AM CDT us Nae Sotelo MD LABORATORY Final Resul t Performing Organization Address [facility] de Phone Number [facility] [address] [place] [address], [place] [phone] * FERRITIN (08/04/2022 4:46 AM CDT) FERRITIN 77.7 8.0 - 252.0 NG/ML 08/04/2022 6:10 AM CDT [facility] 08/04/2022 4:46 AM CDT us Nae Sotelo MD LABORATORY Final Resul t Performing Organization Address [facility] Co de Phone Number [facility] [address] [place] [address], [place] [phone] * (ABNORMAL) IRON SAT PANEL (IRON,IBC,%SAT) (08/04/2022 4:46 AM CDT) IRON 18(L) 50 - 170 MCG/DL 08/04/2022 6:10 AM CDT [facility] IRON BINDING CAPACITY 193(L) 250 - 450 MCG/DL 08/04/2022 6:10 AM CDT [facility] IRON SATURATION 9 % 6:10 AM CDT [facility] Comment:REFERENCE RANGE NOT ESTABLISHED 08/04/2022 4:46 AM CDT us Nae Sotelo MD LABORATORY Final Resul t Performing Organization Address [facility] Co de Phone Number [facility] [address] [place] [address], [id number] * PHOSPHORUS, INORGANIC PHOSPHATE (08/04/2022 4:46 AM CDT) PHOSPHORUS 4.7 2.5 - 4.9 MG/DL 08/04/2022 6:10 AM CDT [facility] 08/04/2022 4:46 AM CDT us Nae Sotelo MD LABORATORY Final Resul t Performing Organization Address [facility] Co de Phone Number [facility] [address] [place] [address], [place] [phone] * MAGNESIUM (08/04/2022 4:46 AM CDT) MAGNESIUM 2.3 1.6 - 2.6 MG/DL 08/04/2022 6:10 AM CDT [facility] 08/04/2022 4:46 AM CDT us Nae Sotelo MD LABORATORY Final Resul t [facility] [address] [place] [address], [phone] * (ABNORMAL) BASIC METABOLIC PANEL (08/04/2022 4:46 AM CDT) SODIUM S/P/B 142 136 - 145 MMOL/L 08/04/2022 6:10 AM CDT [facility] POTASSIUM S/P/B 3.3(L) 3.5 - 5.1 MMOL/L 08/04/2022 6:10 AM CDT [facility] CHLORIDE S/P/B 110(H) 98 - 107 MMOL/L 08/04/2022 6:10 AM CDT [facility] CO2 26.6 21.0 - 32.0 MMOL/L 08/04/2022 6:10 AM CDT [facility] GLUCOSE 123(H) 74 - 106 MG/DL 08/04/2022 6:10 AM CDT [facility] BUN 15 7 - 18 MG/DL 08/04/2022 6:10 AM CDT [facility] CREATININE S/P/B 1.70(H) 0.55 - 1.02 MG/DL 08/04/2022 6:10 AM CDT [facility] CALCIUM S/P/B 8.6 8.5 - 10.1 MG/DL 08/04/2022 6:10 AM CDT [facility] ANION GAP 5.4 5.0 - 15.0 MMOL/L 08/04/2022 6:10 AM CDT [facility] OSMOLALITY (CALC) 296 MOSM/KG 022 6:10 AM T [facility] Comment:REFERENCE RANGE NOT ESTABLISHED GFR ESTIMATE 41(L) >90 ML/MIN/1. 73 M2 08/04/2022 6:10 AM CDT [facility] GFR NOTES GFR REFERENCE S: 08/04/2022 6:10 AM CDT [facility] Comment: THE ESTIMATED GFR IS CALCULATED USING THE 2020 CKD-EPI EQUATION. THE FOLLOWING CATEGORIES FOR GRADING RENAL FUNCTION ARE RECOMMENDED BY THE INTERNATIONAL SOCIETY OF NEPHROLOGY (KDIGO 2012 CLINICAL PRACTICE GUIDELINE). G1,NORMAL OR HIGH: >89 ml/min/1.73 m2 G2,MILDLY DECREASED: 60-89 ml/min/1.73 m2 G3A,MILDLY TO MODERATELY DECREASED: 45-59 ml/min/1.73 m2 G3B,MODERATELY TO SEVERELY DECREASED: 30-44 ml/min/1.73 m2 G4,SEVERELY DECREASED: 15-29 ml/min/1.73 m2 G5,KIDNEY FAILURE: <15 ml/min/1.73 m2 08/04/2022 4:46 AM CDT us Nae Sotelo MD LABORATORY Final Resul t Performing Organization Address [facility] de Phone Number [facility] [address] [place] [address], [phone] * POCT glucose (08/03/2022 8:21 PM CDT) GLUCOSE POC 99 70 - 109 08/03/2022 8:24 PM CDT [facility] 08/03/2022 8:21 PM CDT us Nae Sotelo MD POCT ORDERABLES - DEVICE Fi nal Result Performing Organization Address [facility] Co de Phone Number [facility] [address] [place] [address], [phone] * (ABNORMAL) POCT glucose (08/03/2022 4:09 PM CDT) GLUCOSE POC 161(H) 70 - 109 08/03/2022 4:11 PM CDT [facility] Comment:RN Notified 08/03/2022 4:09 PM CDT us Nae Sotelo MD POCT ORDERABLES - DEVICE Fi nal Result Performing Organization Address [facility] Co de Phone Number [facility] [address] [place] [address], [phone] * CULTURE, URINE (08/03/2022 2:47 PM CDT) SPEC DESCRIPTION URINE CLEAN CATCH 08/03/2022 2:48 PM CDT [facility] SPECIAL REQUESTS NO SPECIAL REQUEST 08/03/2022 2:48 PM CDT [facility] CULTURE RESULT NO GROWTH (< OR = 1,000 CFU/ML) 08/05/2022 10:44 AM CDT [facility] URINE SPECIMEN OBTAINED BY CLEAN CATCH PROCEDURE / Unknown 08/03/2022 2:47 PM CDT 08/03/2022 3:34 PM CDT Nae Sotelo MD MICROBIOLOGY - GENERAL ORDE RABLES Final Result Performing Organization Address [facility] de Phone Number [facility] [address] [place] [address], [phone] * US RETROPERITONEAL LTD (08/03/2022 1:37 PM CDT) Anatomical Region Laterality Modality Renal Ultrasound 08/03/2022 1:41 PM CDT Impressions 08/03/2022 1:44 PM CDT Impression: No acute sonographic abnormality involving the kidneys or urinary bladder. Ordered By: NAE SOTELO Interpreted By: Bethanie Meyer MD, 08/03/2022 1:41 PM Narrative 08/03/2022 1:44 PM CDT Examination: US RETROPERITONEAL LTD Exam Date/Time: 08/03/2022 1:00 PM Clinical Indication: ??BOBBY Comparison: None. Technique: An ultrasound examination of kidneys and urinary bladder was performed to assess grayscale and color flow characteristics. Findings: Right kidney: Measures 11.2 cm (L) X 5.3 cm (W) X 4.9 cm (H). Normal echogenicity. Normal cortical perfusion. ?? No masses, cysts, shadowing stones or hydronephrosis. Left kidney: Measures 12.3 cm (L) X 5.5 cm (W) X 6.2 cm (H). Normal echogenicity. Normal cortical perfusion. ?? No masses, cysts, shadowing stones or hydronephrosis. Urinary bladder: ??No mass or shadowing calculus. Bilateral bladder-urine jets observed. . Bladder prior voiding measures 8.3 cm (L) X 9.5 cm (W) X 7.8 cm (H) Bladder wall thickness: 5 mm Bladder prior voiding volume: 320.2 cm3 Procedure Note Bethanie Meyer MD - 08/03/2022 Examination: US RETROPERITONEAL [facility] Exam Date/Time: 08/03/2022 1:00 PM Clinical Indication: BOBBY Comparison: None. Technique: An ultrasound examination of kidneys and urinary bladder wasperformed to assess grayscale and color flow characteristics. Findings: Right kidney: Measures 11.2 cm (L) X 5.3 cm (W) X 4.9 cm (H). Normalechogenicity. Normal cortical perfusion. No masses, cysts, shadowingstones or hydronephrosis. Left kidney: Measures 12.3 cm (L) X 5.5 cm (W) X 6.2 cm (H). Normalechogenicity. Normal cortical perfusion. No masses, cysts, shadowingstones or hydronephrosis. Urinary bladder: No mass or shadowing calculus. Bilateral bladder-urinejets observed. . Bladder prior voiding measures 8.3 cm (L) X 9.5 cm (W) X 7.8 cm (H) Bladder wall thickness: 5 mm Bladder prior voiding volume: 320.2 cm3 Impression: No acute sonographic abnormality involving the kidneys or urinarybladder. Ordered By: NAE SOTELO Interpreted By: Bethanie Meyer MD, 08/03/2022 1:41 PM us Nae Sotelo MD ULTRASOUND Final Resul t * POCT glucose (08/03/2022 11:31 AM CDT) GLUCOSE POC 96 70 - 109 08/03/2022 12:05 PM CDT [facility] Comment:RN Notified 08/03/2022 11:3 1 AM CDT us Nae Sotelo MD POCT ORDERABLES - DEVICE Fi nal Result Performing Organization Address [facility] Co de Phone Number [facility] [address] [place] [address], [id number] * POCT glucose (08/03/2022 7:00 AM CDT) [facility] GLUCOSE POC 101 70 - 109 08/03/2022 7:36 AM CDT [facility] 08/03/2022 7:00 AM CDT us Nae Sotelo MD POCT ORDERABLES - DEVICE Fi nal Result Performing Organization Address [facility] de Phone Number [facility] [address] [place] [address], [place] [phone] * (ABNORMAL) PRO-BRAIN NATRIURETIC PEPTIDE (08/03/2022 3:48 AM CDT) PRO-B TYPE NATRIURETIC PEPTIDE 1,280(H) <125 PG/ML 08/03/2022 6:15 AM CDT [facility] Comment: AGE INDEPENDENT: <300 PG/ML HAS A 99% NEGATIVE PREDICTIVE VALUE FOR EXCLUDING ACUTE CHF <50 YEARS: >450 PG/ML IS CONSISTENT WITH ACUTE CHF 50-75 YEARS: >900 PG/ML IS CONSISTENT WITH ACUTE CHF >75 YEARS: >1800 PG/ML IS CONSISTENT WITH ACUTE CHF IN PATIENTS WITH RENAL INSUFFICIENCY (GFR <60), >1200 PG/ML YIELDS A DIAGNOSTIC SENSITIVITY AND SPECIFICITY OF 89% AND 72% FOR ACUTE CHF. 08/03/2022 3:48 AM CDT us Nae Sotelo MD LABORATORY Final Resul t Performing Organization Address [facility] de Phone Number [facility] [address] [place] [address], [phone] * PHOSPHORUS, INORGANIC PHOSPHATE (08/03/2022 3:48 AM CDT) PHOSPHORUS 4.5 2.5 - 4.9 MG/DL 08/03/2022 6:15 AM CDT [facility] 08/03/2022 3:48 AM CDT us Nae Sotelo MD LABORATORY Final Resul t Performing Organization Address [facility] de Phone Number [facility] [address] [place] [address], [place] [phone] * MAGNESIUM (08/03/2022 3:48 AM CDT) MAGNESIUM 2.3 1.6 - 2.6 MG/DL 08/03/2022 6:15 AM CDT [facility] 08/03/2022 3:48 AM CDT us Nae Sotelo MD LABORATORY Final Resul t Performing Organization Address [facility] de Phone Number [facility] [address] [place] [address], [id number] * (ABNORMAL) BASIC METABOLIC PANEL (08/03/2022 3:48 AM CDT) SODIUM S/P/B 141 136 - 145 MMOL/L 08/03/2022 6:15 AM CDT [facility] POTASSIUM S/P/B 3.3(L) 3.5 - 5.1 MMOL/L 08/03/2022 6:15 AM T [facility] CHLORIDE S/P/B 109(H) 98 - 107 MMOL/L 08/03/2022 6:15 AM T [facility] CO2 26.8 21.0 - 32.0 MMOL/L 08/03/2022 6:15 AM T [facility] GLUCOSE 83 74 - 106 MG/DL 08/03/2022 6:15 AM T [facility] BUN 20(H) 7 - 18 MG/DL 08/03/2022 6:15 AM T [facility] CREATININE S/P/B 1.80(H) 0.55 - 1.02 MG/DL 08/03/2022 6:15 AM [facility] CALCIUM S/P/B 8.5 8.5 - 10.1 MG/DL 08/03/2022 6:15 AM [facility] ANION GAP 5.2 5.0 - 15.0 MMOL/L 08/03/2022 6:15 AM [facility] OSMOLALITY (CALC) 294 MOSM/KG 022 6:15 AM [facility] Comment:REFERENCE RANGE NOT ESTABLISHED GFR ESTIMATE 39(L) >90 ML/MIN/1. 73 M2 08/03/2022 6:15 AM T [facility] GFR NOTES GFR REFERENCE S: 08/03/2022 6:15 AM [facility] Comment: THE ESTIMATED GFR IS CALCULATED USING THE 2020 CKD-EPI EQUATION. THE FOLLOWING CATEGORIES FOR GRADING RENAL FUNCTION ARE RECOMMENDED BY THE INTERNATIONAL SOCIETY OF NEPHROLOGY (KDIGO 2012 CLINICAL PRACTICE GUIDELINE). G1,NORMAL OR HIGH: >89 ml/min/1.73 m2 G2,MILDLY DECREASED: 60-89 ml/min/1.73 m2 G3A,MILDLY TO MODERATELY DECREASED: 45-59 ml/min/1.73 m2 G3B,MODERATELY TO SEVERELY DECREASED: 30-44 ml/min/1.73 m2 G4,SEVERELY DECREASED: 15-29 ml/min/1.73 m2 G5,KIDNEY FAILURE: <15 ml/min/1.73 m2 08/03/2022 3:48 AM CDT Nae Sotelo MD LABORATORY Final Resul t [facility] [address] [place] [address], [id number] * (ABNORMAL) CBC W/DIFF AUTOMATED (08/03/2022 3:48 AM CDT) WBC 9.7 4.0 - 10.8 x10'3/uL 08/03/2022 5:45 AM CDT [facility] RBC 3.56(L) 4.10 - 5.40 x10'6/uL 08/03/2022 5:45 AM CDT [facility] HGB 9.7(L) 12.0 - 16.0 G/DL 08/03/2022 5:45 AM CDT [facility] HCT 31.9(L) 36.0 - 47.0 % 08/03/2022 5:45 AM CDT [facility] MCV 89.6 78.0 - 100.0 FL 08/03/2022 5:45 AM CDT [facility] MCH 27.2 27.0 - 31.0 PG 08/03/2022 5:45 AM CDT [facility] MCHC 30.4(L) 33.0 - 36.0 G/DL 08/03/2022 5:45 AM CDT [facility] RDW 13.6 11.5 - 14.5 % 08/03/2022 5:45 AM CDT [facility] PLT 506(H) 150 - 350 x10'3/uL 08/03/2022 5:45 AM CDT [facility] MPV 10.3 7.4 - 10.4 FL 08/03/2022 5:45 AM CDT [facility] ABS. NEUTROPHILS 6.20 1.60 - 8.30 x10'3/uL 08/03/2022 5:45 AM CDT [facility] ABS. LYMPHOCYTES 2.02 0.80 - 4.70 x10'3/uL 08/03/2022 5:45 AM CDT [facility] ABS. MONOCYTES 1.08 0.00 - 1.50 x10'3/uL 08/03/2022 5:45 AM CDT [facility] ABS. EOSINOPHILS 0.37 0.00 - 0.40 x10'3/uL 08/03/2022 5:45 AM CDT [facility] ABS. BASOPHILS 0.02 0.00 - 0.20 x10'3/uL 08/03/2022 5:45 AM CDT [facility] ABS. IMMATURE GRANULOCYTES 0.04(H) 0.00 - 0.03 x10'3/uL 08/03/2022 5:45 AM CDT [facility] ABS. NUCLEATED RBC'S 0.00 0.0 x10'3/uL 08/03/2022 5:45 AM CDT [facility] 08/03/2022 3:48 AM CDT us Nae Sotelo MD LABORATORY Final Resul t [facility] [address] [place] [address], [phone] * POCT glucose (08/02/2022 9:53 PM CDT) [facility] [address] GLUCOSE POC 77 70 - 109 08/02/2022 10:07 PM CDT [facility] 08/02/2022 9:53 PM CDT us Nae Sotelo MD POCT ORDERABLES - DEVICE Fi nal Result Performing Organization Address [facility] Co de Phone Number [facility] [address] [place] [address], [phone] * (ABNORMAL) POCT glucose (08/02/2022 4:05 PM CDT) GLUCOSE POC 196(H) 70 - 109 08/02/2022 4:30 PM CDT [facility] 08/02/2022 4:05 PM CDT Nae Sotelo MD POCT ORDERABLES - DEVICE Fi nal Result Performing Organization Address [facility] Co de Phone Number [facility] [address] [place] [address], [phone] * (ABNORMAL) POCT glucose (08/02/2022 12:27 PM CDT) GLUCOSE POC 139(H) 70 - 109 08/02/2022 12:30 PM CDT [facility] 08/02/2022 12:2 7 PM CDT Tono Bejarano MD POCT ORDERABLES - DEVICE Fin al Result Performing Organization Address [facility] Co de Phone Number [facility] [address] [place] [address], [phone] * (ABNORMAL) PRO-BRAIN NATRIURETIC PEPTIDE (PRO BNP) (08/02/2022 10:40 AM CDT) PRO-B TYPE NATRIURETIC PEPTIDE 1,555(H) <125 PG/ML 08/02/2022 11:23 AM CDT [facility] Comment: AGE INDEPENDENT: <300 PG/ML HAS A 99% NEGATIVE PREDICTIVE VALUE FOR EXCLUDING ACUTE CHF <50 YEARS: >450 PG/ML IS CONSISTENT WITH ACUTE CHF 50-75 YEARS: >900 PG/ML IS CONSISTENT WITH ACUTE CHF >75 YEARS: >1800 PG/ML IS CONSISTENT WITH ACUTE CHF IN PATIENTS WITH RENAL INSUFFICIENCY (GFR <60), >1200 PG/ML YIELDS A DIAGNOSTIC SENSITIVITY AND SPECIFICITY OF 89% AND 72% FOR ACUTE CHF. 08/02/2022 10:4 0 AM CDT Lexus Deluna MD LABORATORY Final Result [facility] [address] [place] [address], [id number] * FUNGAL PROFILE (08/02/2022 10:40 AM CDT) ASPERGILLUS FLAVUS AB Negative Negative 04/2022 9:25 AM CDT [facility] ASPERGILLUS NIGER AB Negative Negative 04/2022 9:25 AM CDT [facility] ASPERGILLUS FUMIGATUS AB Negative Negative 08/08/2022 9:25 AM CDT [facility] Comment: ?Interpretive Criteria: ?? Negative: Antibody not detected ?? Positive: Antibody detected A positive result is represented by 1 or more precipitin bands, and may indicate fungus ball, allergic bronchopulmonary aspergillosis (ARLINE) or invasive aspergillosis. Generally, the appearance of 3-4 bands indicates either fungus ball or ARLINE. BLASTO IMMUNODIFFUSION Negative Negative 08/08/2022 9:25 AM CDT [facility] Comment: ?Interpretive Criteria: ?? Negative: Antibody not detected ?? Positive: Antibody detected A positive result is diagnostic of active or recent blastomycosis and is found in approximately 80% of proven cases of blastomycosis. COCCIDIOIDES AB Negative Negative 9:25 AM CDT [facility] Comment: Interpretive Criteria: ?Negative: ?? Antibody Not Detected ?Positive: ?? Antibody Detected The immunodiffusion (ID) procedure correlates both in sensitivity and clinical utility with the CF test. The ID test, which detects IgG directed to the F antigen, becomes positive within 4 weeks after infection and remains positive throughout clinically active disease. It is most useful in confirming the specificity of low CF titers, where lines of identity are formed with reference antisera. Positive ID reactions are diagnostic for coccidioidomycosis and usually indicate active or recent disease and remain detectable for up to 1 year thereafter. HISTOPLASMA YEAST AB <1:8 <1:8 04/2022 9:25 AM CDT [facility] HISTOPLASMA MYCELIAL AB <1:8 <1:8 08/08/2022 9:25 AM CDT [facility] Comment: Interpretive Criteria: ? <1:8 - Antibody Not Detected > or = 1:8 - Antibody Detected Complement-fixation (CF) titers greater than or equal to 1:8 are generally considered evidence indicative of histoplasmosis. Higher titers increase the probability of infection. However, positive titers are also seen with fungal infections other than histoplasmosis, and confirmation of antibody specificity with immunodiffusion procedures is recommended. Changing titers are useful both in diagnosis and in assessment of treatment efficacy. This test was developed and its analytical performance characteristics have been determined by [facility] [place], [place]. It has not been cleared or approved by the FDA. This assay has been validated pursuant to the CLIA regulations and is used for clinical purposes. Test Performed by [facility], [facility] [place], [address] [place] [address] Orestes Espino M.D., Ph.D., Director of Laboratories , CLIA [id number] 08/02/2022 10:4 0 AM CDT us Lexus Deluna MD LABORATORY Final Result [facility] [id number] [place], [place] , * (ABNORMAL) POCT glucose (08/02/2022 7:01 AM CDT) [facility] GLUCOSE POC 209(H) 70 - 109 08/02/2022 7:05 AM CDT [facility] Comment:Will Repeat Test 08/02/2022 7:01 AM CDT Tono Bejarano MD POCT ORDERABLES - DEVICE Fin al Result [facility] [address] [place] [address], [id number] * XR CHEST PORTABLE (08/02/2022 5:48 AM CDT) Anatomical Region Laterality Modality Chest Radiographic Nissa ging 08/02/2022 8:30 AM CDT Impressions 08/02/2022 10:59 AM CDT IMPRESSION: 1. Mild interval improvement of groundglass and consolidative opacities in the right lung compatible with pneumonia. 2. Interval placement of right-sided peripherally inserted central catheter as above. The attending radiologist has reviewed the image(s) and agrees with the content of this report. Ordered By: TONO BEJARANO Interpreted By: Grey Cisneros DO, 08/02/2022 8:30 AM Narrative 08/02/2022 10:59 AM CDT Examination: AP Chest x-ray Exam time: 08/02/2022 5:46 AM Clinical history: Acute hypoxic respiratory failure. Comparison: Chest radiograph 08/01/2022, 07/31/2022, 07/30/2022, 07/29/2022. Technique: Single AP view of the chest. Findings: There has been interval placement of a right-sided transvenous peripherally inserted central catheter with distal tip at the cavoatrial junction. The cardiac silhouette appears normal size. There is normal distribution of the pulmonary vasculature. There is been mild interval improvement of groundglass and consolidative opacities in the right lung. No significant pleural effusion is identified. No pneumothorax is identified. Procedure Note Francis Corado MD - 08/02/2022 Examination: AP Chest x-ray Exam time: 08/02/2022 5:46 AM Clinical history: Acute hypoxic respiratory failure. Comparison: Chest radiograph 08/01/2022, 07/31/2022, 07/30/2022, 07/29/2022. Technique: Single AP view of the chest. Findings: There has been interval placement of a right-sided transvenousperipherally inserted central catheter with distal tip at the cavoatrialjunction. The cardiac silhouette appears normal size. There is normaldistribution of the pulmonary vasculature. There is been mild intervalimprovement of groundglass and consolidative opacities in the right lung.No significant pleural effusion is identified. No pneumothorax isidentified. IMPRESSION: 1. Mild interval improvement of groundglass and consolidative opacities inthe right lung compatible with pneumonia. 2. Interval placement of right-sided peripherally inserted centralcatheter as above. The attending radiologist has reviewed the image(s) and agrees with thecontent of this report. Ordered By: TONO BEJARANO Interpreted By: Grey Cisneros DO, 08/02/2022 8:30 AM Tono Bejarano MD GENERAL IMAGING Final Result * (ABNORMAL) POCT glucose (08/01/2022 7:57 PM CDT) GLUCOSE POC 202(H) 70 - 109 08/01/2022 8:18 PM CDT [facility] 08/01/2022 7:57 PM CDT Tono Bejarano MD POCT ORDERABLES - DEVICE Fin al Result [facility] [address] [place] [address], [id number] * (ABNORMAL) POCT glucose (08/01/2022 3:12 PM CDT) GLUCOSE POC 176(H) 70 - 109 08/01/2022 4:20 PM CDT [facility] 08/01/2022 3:12 PM CDT Tono Bejarano MD POCT ORDERABLES - DEVICE Fin al Result [facility] [address] [place] [address], [phone] * (ABNORMAL) URINALYSIS (08/01/2022 2:20 PM CDT) COLOR (U) LIGHT YELLOW 08/01/2022 2:48 PM CDT [facility] TRANSPARENCY SLIGHTLY CLOUDY 08/01/2022 2:48 PM CDT [facility] SPECIFIC GRAVITY (U) 1.015 1.002 - 1.035 08/01/2022 2:48 PM CDT [facility] U PH 6.0 5 - 8 08/01/2022 2:48 PM CDT [facility] PROTEIN (U) 300(A) NEGATIVE 08/01/2022 2:48 PM CDT [facility] URINE GLUCOSE 100(A) NEGATIVE MG/DL 08/01/2022 2:48 PM CDT [facility] KETONES MG/DL (U) TRACE(A) NEGATIVE 08/01/2022 2:48 PM CDT [facility] BILIRUBIN (U) NEGATIVE NEGATIVE 08/01/2022 2:48 PM CDT [facility] BLOOD (U) 2+(A) NEGATIVE 08/01/2022 2:48 PM CDT [facility] NITRITES NEGATIVE NEGATIVE 08/01/2022 2:48 PM CDT [facility] UROBILINOGEN NORMAL 0 - 1 EU/DL 08/01/2022 2:48 PM CDT [facility] LEUKOCYTES (U) TRACE(A) NEGATIVE 08/01/2022 2:48 PM CDT [facility] RBC/HPF 16(H) 0 - 3 /HPF 08/01/2022 2:48 PM CDT [facility] WBC/HPF 7(H) 0 - 6 /HPF 08/01/2022 2:48 PM CDT [facility] BACTERIA (U) PRESENT /HPF 08/01/2022 2:48 PM CDT [facility] SQUAMOUS EPITHELIALS 13 08/01/2022 2:48 PM CDT [facility] BUDDING YEAST PRESENT 08/01/2022 2:48 PM CDT [facility] WBC CLUMPS PRESENT 08/01/2022 2:48 PM CDT [facility] HYALINE CASTS 4 08/01/2022 2:48 PM CDT [facility] URINE SPECIMEN OBTAINED BY CLEAN CATCH PROCEDURE / Unknown 08/01/2022 2:20 PM CDT Javier Cook MD URINE ORDERABLES Final Result [facility] [address] [place] [address], [id number] * USV VAST TEAM PICC INSERT >5YR (08/01/2022 1:49 PM CDT) Anatomical Region Laterality Modality NA Vascular Ultraso und 08/01/2022 12:5 6 PM CDT Narrative 08/01/2022 12:56 PM CDT This report does not contain a radiologist's interpretation. Please review associated procedure and/or operative report. Procedure Note Rios Florian MD - 08/01/2022 This report does not contain a radiologist's interpretation. Please review associated procedure and/or operative report. Tono Bejarano MD VASC Final Result * MRSA PCR nares Screening (08/01/2022 9:58 AM CDT) SPECIMEN SOURCE RESPIRATORY, NOSE 08/01/2022 10:02 AM CDT [facility] MRSA BY PCR NASAL METHICILLIN RESISTANT STAPH AUREUS NOT DETECTED 08/02/2022 10:26 AM CDT [facility] NASAL STRUCTURE / Unknown 08/01/2022 9:58 AM CDT Nae Sotelo MD MICROBIOLOGY - GENERAL DIVINA OLVERA Final Result Performing Organization Address City/[facility] Co de Phone Number [facility] [address] [place] [address], [phone] * (ABNORMAL) POCT glucose (08/01/2022 8:17 AM CDT) GLUCOSE POC 129(H) 70 - 109 08/01/2022 8:21 AM CDT [facility] Comment:RN Notified 08/01/2022 8:17 AM CDT Tono Bejarano MD POCT ORDERABLES - DEVICE Fin al Result Performing Organization Address [facility] Co de Phone Number [facility] [address] [place] [address], [place] [phone] * (ABNORMAL) ARTERIAL BLOOD GAS (08/01/2022 6:46 AM CDT) PH ARTERIAL 7.43 7.35 - 7.45 08/01/2022 7:01 AM CDT [facility] PCO2 38.1 35.0 - 45.0 MMHG 08/01/2022 7:01 AM CDT [facility] PO2 59.7(L) 83.0 - 108.0 MMHG 08/01/2022 7:01 AM CDT [facility] BICARB ARTERIAL 24.5 22 - 26 MMOL/L 08/01/2022 7:01 AM CDT [facility] TCO2 25.7 23 - 27 MMOL/L 08/01/2022 7:01 AM CDT [facility] BE/BASE EXCESS 0.8 0 - 2 MMOL/L 08/01/2022 7:01 AM CDT [facility] O2 Saturation 91(L) 95 - 98 % 08/01/2022 7:01 AM CDT [facility] 08/01/2022 6:46 AM CDT us Nae Sotelo MD LABORATORY Final Resul t Performing Organization Address [facility] Co de Phone Number [facility] [address] [place] [address], [phone] * PTH - INTACT (08/01/2022 6:46 AM CDT) PTH INTACT 67.1 18.4 - 80.1 PG/ML 08/01/2022 10:26 AM CDT [facility] Comment: ASSAY PERFORMED BY CHEMILUMINESCENCE METHODOLOGY USING SIEMENS [email or web address] XPT REAGENT. PATIENT RESULTS DETERMINED BY ASSAYS USING DIFFERENT MANUFACTURERS FOR METHODS MAY NOT BE COMPARABLE. 08/01/2022 6:46 AM CDT us Nae Sotelo MD LABORATORY Final Resul t Performing Organization Address [facility] Co de Phone Number [facility] [address] [place] [address], [place] [phone] * PROCALCITONIN (PCT) (08/01/2022 6:46 AM CDT) Procalcitonin 0.09 <0.50 NG/ML 08/01/2022 9:52 AM CDT [facility] 08/01/2022 6:46 AM CDT us Nae Sotelo MD LABORATORY Final Resul t Performing Organization Address [facility] de Phone Number [facility] [address] [place] [address], [phone] * (ABNORMAL) PROTIME/INR, VENOUS (08/01/2022 6:46 AM CDT) PROTIME 13.2(H) 9.4 - 12.5 SEC 08/01/2022 7:15 AM CDT [facility] INR 1.2(H) 0.8 - 1.1 08/01/2022 7:15 AM CDT [facility] 08/01/2022 6:46 AM CDT us Nae Sotelo MD LABORATORY Final Resul t Performing Organization Address [facility] de Phone Number [facility] [address] [place] [address], [phone] * PHOSPHORUS, INORGANIC PHOSPHATE (08/01/2022 6:46 AM CDT) PHOSPHORUS 4.6 2.5 - 4.9 MG/DL 08/01/2022 8:54 AM CDT [facility] 08/01/2022 6:46 AM CDT us Nae Sotelo MD LABORATORY Final Resul t Performing Organization Address [facility] de Phone Number [facility] [address] [place] [address], [phone] * MAGNESIUM (08/01/2022 6:46 AM CDT) MAGNESIUM 2.2 1.6 - 2.6 MG/DL 08/01/2022 8:54 AM CDT [facility] 08/01/2022 6:46 AM CDT us Nae Sotelo MD LABORATORY Final Resul t [facility] [address] [place] [address], [id number] * (ABNORMAL) BASIC METABOLIC PANEL (08/01/2022 6:46 AM CDT) SODIUM S/P/B 140 136 - 145 MMOL/L 08/01/2022 8:54 AM CDT [facility] POTASSIUM S/P/B 3.8 3.5 - 5.1 MMOL/L 08/01/2022 8:54 AM CDT [facility] CHLORIDE S/P/B 110(H) 98 - 107 MMOL/L 08/01/2022 8:54 AM CDT [facility] CO2 24.0 21.0 - 32.0 MMOL/L 08/01/2022 8:54 AM CDT [facility] GLUCOSE 128(H) 74 - 106 MG/DL 08/01/2022 8:54 AM CDT [facility] BUN 17 7 - 18 MG/DL 08/01/2022 8:54 AM CDT [facility] CREATININE S/P/B 1.54(H) 0.55 - 1.02 MG/DL 08/01/2022 8:54 AM CDT [facility] CALCIUM S/P/B 8.7 8.5 - 10.1 MG/DL 08/01/2022 8:54 AM CDT [facility] ANION GAP 6.0 5.0 - 15.0 MMOL/L 08/01/2022 8:54 AM CDT [facility] OSMOLALITY (CALC) 293 MOSM/KG 022 8:54 AM CDT [facility] Comment:REFERENCE RANGE NOT ESTABLISHED GFR ESTIMATE 47(L) >90 ML/MIN/1. 73 M2 08/01/2022 8:54 AM CDT [facility] GFR NOTES GFR REFERENCE S: 08/01/2022 8:54 AM CDT [facility] Comment: THE ESTIMATED GFR IS CALCULATED USING THE 2020 CKD-EPI EQUATION. THE FOLLOWING CATEGORIES FOR GRADING RENAL FUNCTION ARE RECOMMENDED BY THE INTERNATIONAL SOCIETY OF NEPHROLOGY (KDIGO 2012 CLINICAL PRACTICE GUIDELINE). G1,NORMAL OR HIGH: >89 ml/min/1.73 m2 G2,MILDLY DECREASED: 60-89 ml/min/1.73 m2 G3A,MILDLY TO MODERATELY DECREASED: 45-59 ml/min/1.73 m2 G3B,MODERATELY TO SEVERELY DECREASED: 30-44 ml/min/1.73 m2 G4,SEVERELY DECREASED: 15-29 ml/min/1.73 m2 G5,KIDNEY FAILURE: <15 ml/min/1.73 m2 08/01/2022 6:46 AM CDT Nae Sotelo MD LABORATORY Final Resul t [facility] [address] [place] [phone], [id number] * (ABNORMAL) CBC W/DIFF AUTOMATED (08/01/2022 6:46 AM CDT) WBC 13.1(H) 4.0 - 10.8 x10'3/uL 08/01/2022 6:57 AM CDT [facility] RBC 3.50(L) 4.10 - 5.40 x10'6/uL 08/01/2022 6:57 AM CDT [facility] HGB 9.8(L) 12.0 - 16.0 G/DL 08/01/2022 6:57 AM CDT [facility] HCT 30.8(L) 36.0 - 47.0 % 08/01/2022 6:57 AM CDT [facility] MCV 88.0 78.0 - 100.0 FL 08/01/2022 6:57 AM CDT [facility] MCH 28.0 27.0 - 31.0 PG 08/01/2022 6:57 AM CDT [facility] MCHC 31.8(L) 33.0 - 36.0 G/DL 08/01/2022 6:57 AM CDT [facility] RDW 13.5 11.5 - 14.5 % 08/01/2022 6:57 AM CDT [facility] PLT 414(H) 150 - 350 x10'3/uL 08/01/2022 6:57 AM CDT [facility] MPV 10.4 7.4 - 10.4 FL 08/01/2022 6:57 AM CDT [facility] ABS. NEUTROPHILS 12.31(H) 1.60 - 8.30 x10'3/uL 08/01/2022 6:57 AM CDT [facility] ABS. LYMPHOCYTES 0.51(L) 0.80 - 4.70 x10'3/uL 08/01/2022 6:57 AM CDT [facility] ABS. MONOCYTES 0.20 0.00 - 1.50 x10'3/uL 08/01/2022 6:57 AM CDT [facility] ABS. EOSINOPHILS 0.00 0.00 - 0.40 x10'3/uL 08/01/2022 6:57 AM CDT [facility] ABS. BASOPHILS 0.01 0.00 - 0.20 x10'3/uL 08/01/2022 6:57 AM CDT [facility] ABS. IMMATURE GRANULOCYTES 0.05(H) 0.00 - 0.03 x10'3/uL 08/01/2022 6:57 AM CDT [facility] ABS. NUCLEATED RBC'S 0.00 0.0 x10'3/uL 08/01/2022 6:57 AM CDT [facility] 08/01/2022 6:46 AM CDT Nae Sotelo MD LABORATORY Final Resul t Performing Organization Address City/[facility]/ZIP Co de Phone Number [facility] [address] [place] [address], [phone] * Vancomycin Random Level (08/01/2022 6:46 AM CDT) VANCOMYCIN RANDOM 22.9 MCG/ML 08/01/2022 7:55 AM CDT [facility] Comment:REFERENCE RANGE NOT ESTABLISHED 08/01/2022 6:46 AM CDT Tono Bejarano MD LABORATORY Final Result Performing Organization Address [facility] Co de Phone Number [facility] [address] [place] [address], [phone] * XR CHEST PORTABLE (08/01/2022 6:28 AM CDT) Anatomical Region Laterality Modality Chest Radiographic Nissa ging 08/01/2022 6:51 AM CDT Impressions 08/01/2022 6:54 AM CDT IMPRESSION: 1. ??No significant change from the prior exam with stable extensive pneumonia in the right lung and mild patchy interstitial pneumonitis in the left lung. 2. ??Stable small left pleural effusion versus chronic pleural thickening at the left costophrenic angle. Referred By: LIAT QUINONES Interpreted By: Monica De La O MD, 08/01/2022 6:51 AM Narrative 08/01/2022 6:54 AM CDT EXAMINATION: XR Portable CXR, 1 View INDICATION: Follow-up CHF, pneumonia, respiratory pulmonary infiltrate. ??On BiPAP machine. COMPARISON: 07/31/2022. FINDINGS: The cardiomediastinal silhouette is within normal limits. ??monitoring engineer leads overlie the chest and upper abdomen. ??Pulmonary vascularity is normal. Stable partially consolidative infiltrative opacities in the right lung and mild prominence of interstitial markings in the left perihilar and suprahilar region and questionably in the retrocardiac left lower lobe. ??Stable blunting of the left costophrenic angle, small left pleural effusion versus chronic pleural thickening. ??No right pleural effusion. ??No pneumothorax. No acute osseous abnormality. Procedure Note Monica De La O MD - 08/01/2022 EXAMINATION: XR Portable CXR, 1 View INDICATION: Follow-up CHF, pneumonia, respiratory pulmonary infiltrate.On BiPAP machine. COMPARISON: 07/31/2022. FINDINGS: The cardiomediastinal silhouette is within normal limits. Cardiac monitorleads overlie the chest and upper abdomen. Pulmonary vascularity isnormal. Stable partially consolidative infiltrative opacities in the rightlung and mild prominence of interstitial markings in the left perihilarand suprahilar region and questionably in the retrocardiac left lowerlobe. Stable blunting of the left costophrenic angle, small left pleuraleffusion versus chronic pleural thickening. No right pleural effusion.No pneumothorax. No acute osseous abnormality. IMPRESSION: 1. No significant change from the prior exam with stable extensivepneumonia in the right lung and mild patchy interstitial pneumonitis inthe left lung. 2. Stable small left pleural effusion versus chronic pleural thickeningat the left costophrenic angle. Referred By: LIAT QUINONES Interpreted By: Monica De La O MD, 08/01/2022 6:51 AM Nae Sotelo MD GENERAL IMAGING Final Resul t * (ABNORMAL) POCT glucose (07/31/2022 11:21 PM CDT) GLUCOSE POC 147(H) 70 - 109 07/31/2022 11:51 PM CDT [facility] 07/31/2022 11:2 1 PM CDT Tono Bejarano MD POCT ORDERABLES - DEVICE Fin al Result [facility] [address] [place] [address], [place] [phone] * ANTI-GBM (GLOMERULAR BASEMENT MEMBRANE AB) (07/31/2022 10:53 PM CDT) ANTI-GBM <1.0 <1.0 AI 08/07/2022 2:38 PM CDT [facility] [place] Comment: ?Value ?? Interpretation ? <1.0 AI: No Antibody Detected ?>or=1.0 AI: Antibody Detected Test Performed by Angel Powell, [facility], [address] [place] [address] Orestes Espino M.D., Ph.D., Director of Laboratories , [facility] [id number] 07/31/2022 10:5 3 PM CDT Javier Cook MD LABORATORY Final Result [facility] [address] [address], [place] [phone] * (ABNORMAL) IMMUNOGLOBULINS IGA IGG IGM (07/31/2022 10:53 PM CDT) IGA 397.0 70.0 - 400.0 MG/DL 07/31/2022 11:52 PM CDT [facility] IGG 663.0(L) 700.0 - 1,600.0 MG/DL 07/31/2022 11:52 PM CDT [facility] IGM 64.8 40.0 - 230.0 MG/DL 07/31/2022 11:52 PM CDT [facility] 07/31/2022 10:5 3 PM CDT Javier Cook MD LABORATORY Final Result Performing Organization Address [facility] de Phone Number [facility] [address] [place] [address], [phone] * (ABNORMAL) ARTERIAL BLOOD GAS (07/31/2022 10:50 PM CDT) PH ARTERIAL 7.47(H) 7.35 - 7.45 07/31/2022 11:10 PM CDT [facility] PCO2 33.1(L) 35.0 - 45.0 MMHG 07/31/2022 11:10 PM CDT [facility] PO2 62.2(L) 83.0 - 108.0 MMHG 07/31/2022 11:10 PM CDT [facility] BICARB ARTERIAL 24.0 22 - 26 MMOL/L 07/31/2022 11:10 PM CDT [facility] TCO2 25.0 23 - 27 MMOL/L 07/31/2022 11:10 PM CDT [facility] BE/BASE EXCESS 1.1 0 - 2 MMOL/L 07/31/2022 11:10 PM CDT [facility] O2 Saturation 93(L) 95 - 98 % 07/31/2022 11:10 PM CDT [facility] 07/31/2022 10:5 0 PM CDT Nae Sotelo MD LABORATORY Final Resul t Performing Organization Address [facility] Co de Phone Number [facility] [address] [place] [address], [phone] * (ABNORMAL) POCT glucose (07/31/2022 9:50 PM CDT) GLUCOSE POC 163(H) 70 - 109 07/31/2022 9:52 PM CDT [facility] 07/31/2022 9:50 PM CDT Nae Sotelo MD POCT ORDERABLES - DEVICE Fi nal Result [facility] [address] [place] [address], [phone] * XR CHEST PORTABLE (07/31/2022 2:50 PM CDT) Anatomical Region Laterality Modality Chest Radiographic Nissa ging 07/31/2022 3:01 PM CDT Impressions 07/31/2022 3:02 PM CDT IMPRESSION: 1) Interval increase in diffuse pulmonary parenchymal opacifications involving the majority of the right lung. The left lung is free of consolidation. Ordered By: TONO BEJARANO Interpreted By: Srinivas Patrick MD, 07/31/2022 3:01 PM Narrative 07/31/2022 3:02 PM CDT Examination: XR CHEST PORTABLE Exam time: 07/31/2022 2:42 PM Clinical history: Respiratory failure Comparison: 07/30/2022 Technique: Portable AP chest Findings: Shallow inspiration. Heart size at the upper limits of normal. Mild pulmonary vascular congestion. Interval increase in diffuse abnormal parenchymal opacity involving the majority of the right lung. The left lung remains free of consolidation. Tiny bilateral pleural effusions. Procedure Note Srinivas Patrick MD - 07/31/2022 Examination: XR CHEST PORTABLE Exam time: 07/31/2022 2:42 PM Clinical history: Respiratory failure Comparison: 07/30/2022 Technique: Portable AP chest Findings: Shallow inspiration. Heart size at the upper limits of normal.Mild pulmonary vascular congestion. Interval increase in diffuse abnormalparenchymal opacity involving the majority of the right lung. The leftlung remains free of consolidation. Tiny bilateral pleural effusions. IMPRESSION: 1) Interval increase in diffuse pulmonary parenchymal opacificationsinvolving the majority of the right lung. The left lung is free ofconsolidation. Ordered By: TONO BEJARANO Interpreted By: Srinivas Patrick MD, 07/31/2022 3:01 PM oTno Bejarano MD GENERAL IMAGING Final Result * POCT glucose (07/31/2022 2:46 PM CDT) GLUCOSE POC 78 70 - 109 07/31/2022 2:47 PM CDT [facility] Comment:RN Notified 07/31/2022 2:46 PM CDT Nae Sotelo MD POCT ORDERABLES - DEVICE Fi nal Result Performing Organization Address City/State/[facility] Co de Phone Number [facility] [address] [place] [address], [phone] * Bronchoscopy (07/31/2022 12:51 PM CDT) Narrative [facility] - 07/31/2022 12:51 PM CDT Tono Bejarano MD ? 07/31/2022 ??1:00 PM Procedure Performed: Fiberoptic bronchoscopy with BAL Indication: Acute hypoxemic respiratory failure .Net Developer: Tono Bejarano MD Pot Washer: Dorie Canales RN Anesthesia: 6 mg IV Versed, 50 mcg IV Fentanyl Procedure: Consent was obtained from the patient A timeout was completed at the bedside noting the patient name, laterality of the procedure, and confirming patient identity. She was provided with face mask oxygen. After conscious sedation, the bronchoscope was introduced through the right nostril. ??The vocal folds, arytenoids and glottic structures were normal with normal movement of both vocal folds. ??The bronchoscope was advanced into the trachea. ??The entire tracheo-bronchial tree appeared normal without anatomic abnormality, secretions or obstruction. ?? The bronchoscope was advanced into the anterior segment of the right upper lobe and wedged there. ??A total of 90 mL of NS was used for BAL. ??The first aliquot was blood tinged and foamy, but the second was clearing, indicating no alveolar hemorrhage. ??The scope was then withdrawn. Complications: None Samples: BAL sent for differential cell count, cytology, culture, fungal culture, AFB smear and culture. EBL: none us Tono Bejarano MD PFT ORDERABLES Final Result Performing Organization Address [facility] de Phone Number [facility] [address] [place] [address], [phone] * POCT glucose (07/31/2022 11:51 AM CDT) [facility] [address] GLUCOSE POC 98 70 - 109 07/31/2022 11:59 AM CDT [facility] 07/31/2022 11:5 1 AM CDT Tono Bejarano MD POCT ORDERABLES - DEVICE Fin al Result Performing Organization Address [facility] de Phone Number [facility] [address] [place] [address], [phone] * CULTURE VIRAL RESPIRATORY RAPID (07/31/2022 11:48 AM CDT) [facility] [address] VIRAL RESP RAPID CULTURE W/RFX REPORT 08/06/2022 2:53 PM CDT [facility] [employer] [facility] [place] Comment: Respiratory Culture Screen SOURCE : BAL IN VTM 1 TO RESULT ?Negative for Influenza virus, types A and B, Parainfluenza viruses 1,2 # 3, Adenovirus, and Respiratory Syncytial virus. Reference range: Negative Rapid Respiratory Viruses ? Not indicated Test Performed by Angel Powell, [employer] [facility], [address] [place] [address] Orestes Espino M.D., Ph.D., Director of Laboratories , CLIA [id number] SPECIMEN TYPE BAL IN VTM 1 TO 1 RATIO, FRZ NEG 70 08/01/2022 11:52 AM CDT [facility] 07/31/2022 11:4 8 AM CDT Tono Bejarano MD MICROBIOLOGY - GENERAL ORDER RICHARD Final Result Performing Organization Address [facility] de Phone Number [facility] [address] [place] [address], [place] [phone] [employer] , * CULTURE HERPES (07/31/2022 11:48 AM CDT) HERPES SIMPLEX VIRUS CULTURE REPORT 08/05/2022 4:10 PM CDT [facility] [place] Comment: Herpes Simplex Virus Culture SOURCE : BAL IN VTM 1 TO RESULT ?Not Isolated ?Reference Range: Not Isolated Test Performed by Angel Powell, [employer] [facility], [address] [place] [address] Orestes Espino M.D., Ph.D., Director of Laboratories , CLIA [id number] SPECIMEN TYPE BAL IN VTM 1 TO 1 RATIO, FRZ NEG 70 08/01/2022 11:50 AM CDT [facility] 07/31/2022 11:4 8 AM CDT us Tono Bejarano MD MICROBIOLOGY - GENERAL ORDER RICHARD Final Result Performing Organization Address [facility] de Phone Number [facility] [address] [place] [address], [place] [phone] [employer] [address] , [place] [phone] * CULTURE CMV (07/31/2022 11:48 AM CDT) Pathologist [facility] CYTOMEGALOVIRUS CULTURE REPORT 08/07/2022 3:23 PM CDT [employer] [place] Comment: CMV Rapid Culture SOURCE : BAL IN 1:1 VTM,F RESULT ?Not Isolated ? Reference Range: Not Isolated Test Performed by Angel Powell, [employer] [facility], [address] [place] [address] Orestes Espino M.D., Ph.D., Director of Laboratories , CLIA [id number] SPECIMEN SOURCE BAL IN 1 TO 1 VTM, FRZ NEG 70 08/01/2022 11:47 AM CDT [facility] 07/31/2022 11:4 8 AM CDT Tono Bejarano MD MICROBIOLOGY - GENERAL ORDER RICHARD Final Result [facility] [address] [place] [address], [phone] [employer] [address] , [place] [phone] * CULTURE TB/AFB OTHER (TYPE IN COMMENTS) (07/31/2022 11:48 AM CDT) SOURCE ([place]) BRONCHOALVEOLAR LAVAGE 07/31/2022 12:30 PM CDT [facility] Comment: RIGHT UPPER LOBE ANTERIOR SEGMENT CULTURE RESULT SEE NOTE 09/14/2022 01:04 AM 09/14/2022 1:04 AM 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 SOURCE: BRONCHOALVEOLAR LAVAGE, BRONCHOALVEOLAR LAVAGE RIGHT UPPER LOBE ANTERIOR SEGMENT MYCOBACTERIAL CULTURE ?FINAL No growth after 42 days of incubation. Test Performed by: [place] [address] Supervisor [employer]: Cy Galarza M.D. Ph.D.; IA# [id number] BRONCHOALVEO LAV, RT UPP 07/31/2022 11:48 AM CDT us Tono Bejarano MD MICROBIOLOGY - GENERAL ORDER RICHARD Final Result Performing Organization Address City/State/[facility] Co de Phone Number [facility] [address] [facility] [address] [place] [address], [phone] * CULTURE, FUNGUS (07/31/2022 11:48 AM CDT) SOURCE ([place]) BRONCHOALVEOLAR LAVAGE 07/31/2022 12:29 PM CDT [facility] Comment: RIGHT UPPER LOBE ANTERIOR SEGMENT CULTURE RESULT SEE NOTE 08/27/2022 01:03 AM 08/27/2022 1:03 AM CDT [facility] Comment: Test ?Result ?Flag ??Unit ??RefValue Fungal Culture, Routine ? SOURCE: BRONCHOALVEOLAR LAVAGE, BRONCHOALVEOLAR LAVAGE RIGHT UPPER LOBE ANTERIOR SEGMENT FUNGAL CULTURE, ROUTINE ?FINAL No growth after 24 days of incubation. Test Performed by: [place] [address] Supervisor [employer]: Cy Galarza M.D. Ph.D.; CLIA# [id number] BRONCHOALVEO LAV, RT UPP 07/31/2022 11:48 AM CDT Tono Bejarano MD MICROBIOLOGY - GENERAL ORDER RICHARD Final Result [facility] [address] [place] [address] [facility] [address] [place] [address], [phone] * SMEAR,FLUOR STAIN,ACID FAST (07/31/2022 11:48 AM CDT) ACID FAST SMEAR RESULT SEE NOTE 2 03:46 PM 08/03/2022 3:46 PM CDT [facility] Comment: Test ?Result ??Flag ??Unit ??RefValue Acid Fast Smear For Mycobacterium SOURCE: BRONCHOALVEOLAR LAVAGE, ;BAL +RUL ACID FAST SMEAR FOR MYCOBACTERIUM ?FINAL Negative. Test Performed by: [address] [address] Supervisor Litharge: Cy Galarza M.D. Ph.D.; CLIA# [id number] BRONCHOALVEO LAV, RT UPP 07/31/2022 11:48 AM CDT Tono Bejarano MD MICROBIOLOGY - GENERAL ORDER RICHARD Final Result Performing Organization Address [facility] Co de Phone Number [address] [phone] * CULTURE, QUANTITATIVE W/ GRAM STAIN (07/31/2022 11:48 AM CDT) SPEC DESCRIPTION BRONCHOALVEO LAV, RT UPP: ANTERIOR SEGMENT 07/31/2022 12:04 PM CDT [facility] SPECIAL REQUESTS NO SPECIAL REQUEST 07/31/2022 12:04 PM CDT [facility] GRAM STAIN RESULT <10 EPITHELIAL CELLS PER LPF 07/31/2022 3:42 PM CDT [facility] GRAM STAIN RESULT 10-25 NEUTROPHILS PER LPF 07/31/2022 3:42 PM CDT [facility] GRAM STAIN RESULT NO ORGANISMS SEEN 07/31/2022 3:42 PM CDT [facility] CULTURE RESULT ALPHA STREPTOCOCCUS 500 COLONIES PER ML 08/02/2022 10:22 AM CDT [facility] BRONCHOALVEO LAV, RT UPP 07/31/2022 11:48 AM CDT 07/31/2022 12:26 PM CDT Comment:ANTERIOR SEGMENT Tono Bejarano MD MICROBIOLOGY - GENERAL ORDER RICHARD Final Result Performing Organization Address City/[facility]/ZIP Co de Phone Number [facility] [address] [place] [address], [phone] * POCT glucose (07/31/2022 8:37 AM CDT) GLUCOSE POC 73 70 - 109 07/31/2022 8:41 AM CDT [facility] Comment:RN Notified 07/31/2022 8:37 AM CDT us Tono Bejarano MD POCT ORDERABLES - DEVICE Fin al Result Performing Organization Address City/[facility] Co de Phone Number [facility] [address] [place] [address], [place] [phone] * POCT glucose (07/31/2022 6:24 AM CDT) GLUCOSE POC 97 70 - 109 07/31/2022 6:27 AM CDT [facility] 07/31/2022 6:24 AM CDT us Tono Bejarano MD POCT ORDERABLES - DEVICE Fin al Result Performing Organization Address [facility] de Phone Number [facility] [address] [place] [address], [place] [phone] * (ABNORMAL) COMPREHENSIVE METABOLIC PANEL (07/31/2022 4:50 AM CDT) SODIUM S/P/B 140 136 - 145 MMOL/L 07/31/2022 5:46 AM CDT [facility] POTASSIUM S/P/B 3.3(L) 3.5 - 5.1 MMOL/L 07/31/2022 5:46 AM CDT [facility] CHLORIDE S/P/B 108(H) 98 - 107 MMOL/L 07/31/2022 5:46 AM CDT [facility] CO2 27.6 21.0 - 32.0 MMOL/L 07/31/2022 5:46 AM CDT [facility] GLUCOSE 84 74 - 106 MG/DL 07/31/2022 5:46 AM [facility] BUN 18 7 - 18 MG/DL 07/31/2022 5:46 AM [facility] CREATININE S/P/B 1.54(H) 0.55 - 1.02 MG/DL 07/31/2022 5:46 AM [facility] CALCIUM S/P/B 8.4(L) 8.5 - 10.1 MG/DL 07/31/2022 5:46 AM [facility] BILIRUBIN TOTAL S/P/B 0.3 0.2 - 1.0 MG/DL 07/31/2022 5:46 AM [facility] ALKALINE PHOSPHATASE S/P/B 67 37 - 98 U/L 07/31/2022 5:46 AM [facility] AST 18 15 - 37 U/L 07/31/2022 5:46 AM [facility] ALT 16 13 - 56 U/L 07/31/2022 5:46 AM [facility] TOTAL PROTEIN S/P/B 5.6(L) 6.4 - 8.2 G/DL 07/31/2022 5:46 AM [facility] ALBUMIN S/P/B 1.4(L) 3.4 - 5.0 G/DL 07/31/2022 5:46 AM [facility] ANION GAP 4.4(L) 5.0 - 15.0 MMOL/L 07/31/2022 5:46 AM [facility] OSMOLALITY (CALC) 291 MOSM/KG 022 5:46 AM [facility] Comment:REFERENCE RANGE NOT ESTABLISHED GFR ESTIMATE 47(L) >90 ML/MIN/1. 73 M2 07/31/2022 5:46 AM [facility] GFR NOTES GFR REFERENCE S: 07/31/2022 5:46 AM [facility] Comment: THE ESTIMATED GFR IS CALCULATED USING THE 2020 CKD-EPI EQUATION. THE FOLLOWING CATEGORIES FOR GRADING RENAL FUNCTION ARE RECOMMENDED BY THE INTERNATIONAL SOCIETY OF NEPHROLOGY (KDIGO 2012 CLINICAL PRACTICE GUIDELINE). G1,NORMAL OR HIGH: >89 ml/min/1.73 m2 G2,MILDLY DECREASED: 60-89 ml/min/1.73 m2 G3A,MILDLY TO MODERATELY DECREASED: 45-59 ml/min/1.73 m2 G3B,MODERATELY TO SEVERELY DECREASED: 30-44 ml/min/1.73 m2 G4,SEVERELY DECREASED: 15-29 ml/min/1.73 m2 G5,KIDNEY FAILURE: <15 ml/min/1.73 m2 07/31/2022 4:50 AM CDT Nae Wayne MD LABORATORY Final Result [facility] [address] [place] [address], [phone] * (ABNORMAL) CBC W/DIFF AUTOMATED (07/31/2022 4:50 AM CDT) WBC 18.2(H) 4.0 - 10.8 x10'3/uL 07/31/2022 5:10 AM CDT [facility] RBC 3.53(L) 4.10 - 5.40 x10'6/uL 07/31/2022 5:10 AM CDT [facility] HGB 9.9(L) 12.0 - 16.0 G/DL 07/31/2022 5:10 AM CDT [facility] HCT 30.8(L) 36.0 - 47.0 % 07/31/2022 5:10 AM CDT [facility] MCV 87.3 78.0 - 100.0 FL 07/31/2022 5:10 AM CDT [facility] MCH 28.0 27.0 - 31.0 PG 07/31/2022 5:10 AM CDT [facility] MCHC 32.1(L) 33.0 - 36.0 G/DL 07/31/2022 5:10 AM CDT [facility] RDW 13.4 11.5 - 14.5 % 07/31/2022 5:10 AM CDT [facility] PLT 421(H) 150 - 350 x10'3/uL 07/31/2022 5:10 AM CDT [facility] MPV 10.5(H) 7.4 - 10.4 FL 07/31/2022 5:10 AM CDT [facility] ABS. NEUTROPHILS 13.96(H) 1.60 - 8.30 x10'3/uL 07/31/2022 5:10 AM CDT [facility] ABS. LYMPHOCYTES 2.02 0.80 - 4.70 x10'3/uL 07/31/2022 5:10 AM CDT [facility] ABS. MONOCYTES 1.96(H) 0.00 - 1.50 x10'3/uL 07/31/2022 5:10 AM CDT [facility] ABS. EOSINOPHILS 0.14 0.00 - 0.40 x10'3/uL 07/31/2022 5:10 AM CDT [facility] ABS. BASOPHILS 0.03 0.00 - 0.20 x10'3/uL 07/31/2022 5:10 AM CDT [facility] ABS. IMMATURE GRANULOCYTES 0.10(H) 0.00 - 0.03 x10'3/uL 07/31/2022 5:10 AM CDT [facility] ABS. NUCLEATED RBC'S 0.00 0.0 x10'3/uL 07/31/2022 5:10 AM CDT [facility] 07/31/2022 4:50 AM CDT us Nae Wayne MD LABORATORY Final Result [facility] [address] [place] [address], [place] [phone] * RHEUMATOID FACTOR, QUANT (07/31/2022 4:50 AM CDT) RHEUMATOID FACTOR <10 <15 IU/ML 07/31/2022 5:50 AM CDT [facility] 07/31/2022 4:50 AM CDT Tono Bejarano MD LABORATORY Final Result Performing Organization Address [facility] de Phone Number [facility] [address] [place] [address], [phone] * CYCLIC CITRULLINATED PEPTIDE (CCP)ANTIBODY(IGG) (07/31/2022 4:50 AM CDT) CITRULLINE PEPTIDE ANTIBODY <16 <20 Units 08/04/2022 12:53 PM CDT [employer] [place] Comment: Negative: ? <20 Weak Positive: ?20 - 39 Moderate Positive: ?40 - 59 Strong Positive: ?>59 Test Performed by [employer], [employer] [facility], [address] [place] [address] Orestes Espino M.D., Ph.D., Director of Laboratories , [facility] [id number] 07/31/2022 4:50 AM CDT Tono Bejarano MD LABORATORY Final Result Performing Organization Address [facility] Co de Phone Number [employer] LATA [address] [place] [address] , * ANCA VASCULITIS PANEL (07/31/2022 4:50 AM CDT) MYELOPEROXIDASE AB <1.0 <1.0 AI 2021 11:21 PM CDT [employer] [place] Comment: ?Value ?? Interpretation ? <1.0 AI: No Antibody Detected ?>or=1.0 AI: Antibody Detected Autoantibodies to myeloperoxidase (MPO) are commonly associated with the following small-vessel vasculitides: microscopic polyangiitis, polyarteritis nodosa, Churg-Mirela syndrome, necrotizing and crescentic glomerulonephritis and occasionally granulomatosis with polyangiitis (GPA, Hubert's). The perinuclear IFA pattern, (p-ANCA) is based largely on autoantibody to myeloperoxidase which serves as the primary antigen. These autoantibodies are present in active disease. C ANCA <1.0 <1.0 AI 08/03/2022 11:21 PM CDT [employer] [place] Comment: ? Value ?Interpretation ? <1.0 AI: No Antibody Detected ?>or=1.0 AI: Antibody Detected Autoantibodies to proteinase-3 (NE-3) are accepted as characteristic for granulomatosis with polyangiitis (GPA, Hubert's), and are detectable in 95% of the histologically proven cases. The cytoplasmic IFA pattern, (c-ANCA), is based largely on autoantibody to NE-3 which serves as the primary antigen. These autoantibodies are present in active disease. Test Performed by Angel Powell, [employer] [facility], [address] [place] [address] Orestes Espino M.D., Ph.D., Director of Laboratories , [place] [id number] 07/31/2022 4:50 AM CDT us Tono Bejarano MD LABORATORY Final Result Performing Organization Address [facility] Co de Phone Number [employer] [facility] [address] [place] [address], [place] [phone] * ANTINUCLEAR ANTIBODY WI RFX (07/31/2022 4:50 AM CDT) DAVID <0.07 07/31/2022 12:13 PM CDT [facility] Comment: NEGATIVE: <0.7 RATIO DAVID PROFILE AND TITER NOT PERFORMED THE DAVID SCREEN TESTS FOR THE FOLLOWING ANTIBODIES BY EIA: SSA1 (RO), SSB1 (LA), ACKERMAN, SCL70, JO1, CENTROMERE, SOLUTION MAKE UP OPERATOR HISTONE MUST BE ORDERED SEPARATELY DNA (DS) ANTIBODY 0.8 IU/ML 022 12:13 PM CDT [facility] Comment: NEGATIVE: <10 IU/mL EQUIVOCAL: 10 to 15 IU/mL POSITIVE: >15 IU/mL THIS QUANTITATIVE ASSAY IS CALIBRATED TO THE [employer]'S WO/80 STANDARD. THE LEVEL OF dsDNA AUTOANTIBODY GERERALLY CORRELATES WITH THE LEVEL OF DISEASE ACTIVITY IN SYSTEMIC LUPUS ERYTHMATOSUS 07/31/2022 4:50 AM CDT Tono Bejarano MD LABORATORY Final Result Performing Organization Address [facility] de Phone Number [facility] [address] [place] [address], [phone] * CYTOLOGY GENERIC (07/31/2022 12:00 AM CDT) CYTOLOGY OTHER [facility] ? Department of Laboratory Medicine ?[address] [facility] ?[place] [address] ? , extension [phone] ? Pathology Report ? Non-gynecologic Cytology Report Name: LEEROY CANALES ? Specimen #: [id number] Age: 11 1990 (Age: 31) ? Location: [id number] Sex: F ?Procedure Date: 07/31/2022 Hospital #: [id number] ?Date Received: 07/31/2022 Date Reported: 08/01/2022 Provider: TONO BEJARANO MD ?NAE WAYNE ?HENOK DAWKINS MD Source: LUNG, RIGHT UPPER LOBE, BRONCHOALVEOLAR LAVAGE Clinical History: Acute respiratory failure Gross Description: SPECIMEN RECEIVED: ? 10 cc's of pink mucoid fluid ? SLIDES PREPARED: ?1 cytospins and 1 ThinPrep ?STAINS: ? NIKOS Graham This case was interpreted and signed out at [facility], [address] [facility], [place], [place], [facility]ly [facility], [facility]. FINAL DIAGNOSIS: LUNG, RIGHT UPPER LOBE, BRONCHOALVEOLAR LAVAGE: ? - ADEQUATE FOR EVALUATION. ? - NO MALIGNANT CELLS IDENTIFIED. ? - GMS STAIN IS NEGATIVE FOR FUNGAL FORMS. ? - NO VIRAL INCLUSIONS IDENTIFIED. ? - ACUTE INFLAMMATION. ? - DIFFERENTIAL CELL COUNT: ?- 53% NEUTROPHILS. ?- 43% MACROPHAGES. ?- 5% LYMPHOCYTES. Electronically Signed Out ? ROBB SAUNDERS MD [facility] 07/31/2022 07/31/2022 1:14 PM CDT Comment:LUNG, RIGHT UPPER LO BE, BRONCHOALVEOLAR LAVAGE Tono Bejarano MD PATHOLOGY/CYTOLOGY ORDERABLE S Final Result Performing Organization Address [facility] Co de Phone Number [facility] [address] [place] [address], [phone] * POCT glucose (07/30/2022 10:16 PM CDT) GLUCOSE POC 81 70 - 109 07/30/2022 10:18 PM CDT [facility] 07/30/2022 10:1 6 PM CDT us Tono Bejarano MD POCT ORDERABLES - DEVICE Fin al Result Performing Organization Address [facility] de Phone Number [facility] [address] [place] [address], [phone] * (ABNORMAL) POCT glucose (07/30/2022 5:19 PM CDT) GLUCOSE POC 210(H) 70 - 109 07/30/2022 5:47 PM CDT [facility] 07/30/2022 5:19 PM CDT us Tono Bejarano MD POCT ORDERABLES - DEVICE Fin al Result [facility] [address] [place] [address], [phone] * CULTURE RESPIRATORY W/ GRAM STAIN (07/30/2022 4:25 PM CDT) Pathologist [facility] SPEC DESCRIPTION SPUTUM, EXPECTORATED 07/30/2022 4:26 PM CDT [facility] SPECIAL REQUESTS NO SPECIAL REQUEST 07/30/2022 4:26 PM CDT [facility] GRAM STAIN RESULT >25 NEUTROPHILS PER LPF 07/30/2022 10:14 PM CDT [facility] GRAM STAIN RESULT <10 EPITHELIAL CELLS PER LPF 07/30/2022 10:14 PM CDT [facility] GRAM STAIN RESULT FEW GRAM POSITIVE COCCI IN PAIRS 07/30/2022 10:14 PM CDT [facility] GRAM STAIN RESULT RARE GRAM NEGATIVE RODS 07/30/2022 10:14 PM CDT [facility] CULTURE RESULT MANY STREPTOCOCCI, ALPHA HEMOLYTIC 08/02/2022 1:05 PM CDT [facility] CULTURE RESULT MANY MICROCOCCUS SPECIES 08/02/2022 1:05 PM CDT [facility] CULTURE RESULT MANY NEISSERIA SPECIES, NOT MENINGITIDIS 08/02/2022 1:05 PM CDT [facility] CULTURE RESULT MODERATE STAPHYLOCOCCUS, COAGULASE NEGATIVE 08/02/2022 1:05 PM CDT [facility] SPUTUM SPECIMEN / Unknown 07/30/2022 4:25 PM CDT 07/30/2022 4:39 PM CDT Nae Wayne MD MICROBIOLOGY - GENERAL ORDERABLES Final Result Performing Organization Address [facility] de Phone Number [facility] [address] [place] [address], [phone] * (ABNORMAL) POCT glucose (07/30/2022 12:09 PM CDT) GLUCOSE POC 325(H) 70 - 109 07/30/2022 12:37 PM CDT [facility] 07/30/2022 12:0 9 PM CDT Tono Bejarano MD POCT ORDERABLES - DEVICE Fin al Result Performing Organization Address [facility] de Phone Number [facility] [address] [place] [address], [phone] * USE ECHOCARDIOGRAM (07/30/2022 11:32 AM CDT) Anatomical Region Laterality Modality Cardiac Echocardiogram 07/30/2022 10:5 6 AM CDT Narrative 07/30/2022 5:33 PM CDT ?Echocardiography Report Pat.Name: ??LEEROY CANALES ? Pat.ID: ?[id number] ? St.Date: ?? 07/30/2022 ? Refer.: ??[id number], LIAT QUINONES Exam Time: 10:56:00 AM ? Study Type:ECHO WITH CARDIAC DOPPLER COMP Height: ?67in ?Weight: ?269.44lb ? BSA: ? 2.3 m2 ?Age: ??1990,31Y ? Sex: ? FEMALE ?BP: ?149/90 ? HR: ?91 bpm ?Sonogrphr: Harvey Chilel RDCS ? Pat. Stat.:Inpatient ? Room: ?ICUD 3 ? CPT - 4: ?81239 ? Reason for Study: Severe ARDS ? Procedures: ??2D, M-mode, Doppler, Color Flow, Portable ++++++++++++++++++++++++++++++++++++ SUMMARY: ++++++++++++++++++++++++++++++++++++ The calculated ejection fraction is 61%. The right ventricular size is normal. Right ventricular systolic function is normal. Right atrial size is normal. Trivial posterior pericardial effusion is noted. The peak pulmonary artery systolic pressure is estimated to be approximately 30 mmHg. ++++++++++++++++++++++++++++++++++++ FINDINGS: ++++++++++++++++++++++++++++++++++++ LV: ? The left ventricular size is normal. The left ventricular ?systolic ??function is normal. The calculated ejection ?fraction ??is 61%. The average E/e' is elevated at >12 and EF ?> ??or equal to 50. Left ventricular diastolic function is ?indeterminate. WM: ? Wall motion appears normal in all segments. RV: ? The right ventricular size is normal. Right ventricular ?systolic ??function is normal. TAPSE = 33mm (<16 mm indicates ?systolic ??RV dysfunction). LA: ? The left atrial volume is normal ( less than 34 ml/M2). RA: ? Right atrial size is normal. IAS: ?Atrial septum not well visualized in all views. IVETH: ? Trivial posterior pericardial effusion is noted. AO: ? The proximal ascending aorta measures 2.8cm. PA: ? The peak pulmonary artery systolic pressure is estimated to ?be ??approximately 30 mmHg. Estimated right atrial pressure ?of ??8 mmHg. SVn: ?Inferior vena cava shows <50% collapse with respiration ?consistent ??with elevated right atrial pressure. AV: ? No evidence of aortic valve stenosis. No evidence of aortic ?regurgitation. MV: ? No evidence of mitral regurgitation. No evidence of mitral ?valve ??stenosis. PV: ? Trace pulmonic regurgitation. No evidence of pulmonic valve ?stenosis. TV: ? A trace of tricuspid regurgitation. No evidence of tricuspid ?valve ??stenosis. ++++++++++++++++++++++++++++++++++++ MEASUREMENTS: ++++++++++++++++++++++++++++++++++++ ?DOPPLER LVOT ?? LVOTpkPG ? 5 mmHg ?LVOTmnPG ? 3 mmHg LVOTpkVel ?111 cm/s (70-110)* LVOT SV ? 57 ml ?? LVOT TVI ?21.4 cm ?LVOT CO ? 86.7 ml/s AV Forward Flow AV TVI ?29 cm ?AV pkPG ?8 mmHg AV pkVel ? 142 cm/s (100-170) Area (TVI) ?1.96 cm2 ??(3-5)* AV mnVel ? 104 cm/s ?Area (Ochoa) ?2.08 cm2 ??(3-5)* AV mnPG ?5 mmHg ? MV Forward Flow MV DeTm ?145 ms ?MV pkPG ?8 mmHg MVA P1/2t ? 5.12 cm2 ??(4-6) ?MV E/A ? 1.6 ? MV P1/2t ?43 ms ?? (30-60)+ MV pkE ? 142 cm/s (60-130)* MV mnPG ?3 mmHg ?MV pkA ?86.3 cm/s PV Forward Flow PV pkVel ? 116 cm/s (60-90)* PV pkPG ?5 mmHg TV Regurg Flow TV pkPG ? 22 mmHg ?TV pkVel ? 233 cm/s (30- 70)* Lat E' ?? Lat e ? 8.92 cm/s ? Lat E/E' ?? Lat E/e ? 15.9 ? Med E' ?? Med e ? 8.38 cm/s ? Med E/E' ?? Med E/e ? 16.9 ? Aortic Valve ?? Aortic Valve Ar ??0.85 ?Aortic Valve Ve ??0.78 ? AV DI ?? Value ?0.7 ? FARIBA (VTI) Index ?? Value ? 0.85 ? LV Mass 2D ?? Value ?201 g ? LV Mass Omkwu2Q ?? Value ? 87.4 g/m2 ? RA Volume ?? Atrial Power ?? 6.33 cm ? Atrial Power ?? 19.4 cm2 Atrial Power ?? 46.5 ml ? Right Ventricle ?? Right Ventricle ??16.2 cm/s ?2D Left Ventricle ?? LVIDd ? 4.71 cm ?? (3.6-5.2) LV EF(Bi-Plane) ??60.7 % ?(55-75) LVIDs ? 3.18 cm ?? (2.3-3.9) LVPW ?? LVPWd ? 1.14 cm ? Ventricular Septum ?? IVSd ?1.17 cm ? Left Atrium ?? LA a-p ?3.76 cm ?? (2.8-3.4)* Aorta ?? Ao Rtd ?2.68 cm ? Ao Asc ?2.76 cm ?? (2.1-3.4) LVOT ?? LVOT ?1.84 cm ? Ratios ?? IVS LA Biplane LAVol I BP ?17.4 ml/m2 ? Right Ventricle ?? Right Ventricle ??3.59 cm ? Right Ventricle ??3.34 cm ?MMODE TA ?? Tricuspid Annul ??3.26 cm ? Signed 07/30/2022 05:33 PM Stanislav Frances M.D. Procedure Note Miles Frances MD - 07/30/2022 Echocardiography Report Pat.Name: LEEROY CANALES Pat.ID: [id number] .Date: 07/30/2022 Oksana.: [id number], LIAT QUINONES Exam Time: 10:56:00 AM Study Type:ECHO WITH CARDIAC DOPPLER COMP Height: 67in Weight: 269.44lb BSA: 2.3 m2 Age: 11 1990,31Y Sex: FEMALE BP: 149/90 HR: 91 bpm Sonogrphr: Harvey Chilel [facility] Pat. Stat.:Inpatient Room: ICUD 3 CPT - 4: 80624 Reason for Study: Severe ARDS Procedures: 2D, M-mode, Doppler, Color Flow, Portable ++++++++++++++++++++++++++++++++++++ SUMMARY: ++++++++++++++++++++++++++++++++++++ The calculated ejection fraction is 61%. The right ventricular size is normal. Right ventricular systolic function is normal. Right atrial size is normal. Trivial posterior pericardial effusion is noted. The peak pulmonary artery systolic pressure is estimated to be approximately 30 mmHg. ++++++++++++++++++++++++++++++++++++ FINDINGS: ++++++++++++++++++++++++++++++++++++ LV: The left ventricular size is normal. The left ventricular systolic function is normal. The calculated ejection fraction is 61%. The average E/e' is elevated at >12 and EF > or equal to 50. Left ventricular diastolic function is indeterminate. WM: Wall motion appears normal in all segments. RV: The right ventricular size is normal. Right ventricular systolic function is normal. TAPSE = 33mm (<16 mm indicates systolic RV dysfunction). LA: The left atrial volume is normal ( less than 34 ml/M2). RA: Right atrial size is normal. IAS: Atrial septum not well visualized in all views. IVETH: Trivial posterior pericardial effusion is noted. AO: The proximal ascending aorta measures 2.8cm. PA: The peak pulmonary artery systolic pressure is estimated to be approximately 30 mmHg. Estimated right atrial pressure of 8 mmHg. SVn: Inferior vena cava shows <50% collapse with respiration consistent with elevated right atrial pressure. AV: No evidence of aortic valve stenosis. No evidence of aortic regurgitation. MV: No evidence of mitral regurgitation. No evidence of mitral valve stenosis. PV: Trace pulmonic regurgitation. No evidence of pulmonic valve stenosis. TV: A trace of tricuspid regurgitation. No evidence of tricuspid valve stenosis. ++++++++++++++++++++++++++++++++++++ MEASUREMENTS: ++++++++++++++++++++++++++++++++++++ DOPPLER LVOT LVOTpkPG 5 mmHg LVOTmnPG 3 mmHg LVOTpkVel 111 cm/s (70-110)* LVOT SV 57 ml LVOT TVI 21.4 cm LVOT CO 86.7 ml/s AV Forward Flow AV TVI 29 cm AV pkPG 8 mmHg AV pkVel 142 cm/s (100-170) Area (TVI) 1.96 cm2 (3-5)* AV mnVel 104 cm/s Area (Ochoa) 2.08 cm2 (3-5)* AV mnPG 5 mmHg MV Forward Flow MV DeTm 145 ms MV pkPG 8 mmHg MVA P1/2t 5.12 cm2 (4-6) MV E/A 1.6 MV P1/2t 43 ms (30-60)+ MV pkE 142 cm/s (60-130)* MV mnPG 3 mmHg MV pkA 86.3 cm/s PV Forward Flow PV pkVel 116 cm/s (60-90)* PV pkPG 5 mmHg TV Regurg Flow TV pkPG 22 mmHg TV pkVel 233 cm/s (30-70)* Lat E' Lat e 8.92 cm/s Lat E/E' Lat E/e 15.9 Med E' Med e 8.38 cm/s Med E/E' Med E/e 16.9 Aortic Valve Aortic Valve Ar 0.85 Aortic Valve Ve 0.78 AV DI Value 0.7 FARIBA (VTI) Index Value 0.85 LV Mass 2D Value 201 g LV Mass [id number] Value 87.4 g/m2 RA Volume Atrial Power 6.33 cm Atrial Power 19.4 cm2 Atrial Power 46.5 ml Right Ventricle Right Ventricle 16.2 cm/s 2D Left Ventricle LVIDd 4.71 cm (3.6-5.2) LV EF(Bi-Plane) 60.7 % (55-75) LVIDs 3.18 cm (2.3-3.9) LVPW LVPWd 1.14 cm Ventricular Septum IVSd 1.17 cm Left Atrium LA a-p 3.76 cm (2.8-3.4)* Aorta Ao Rtd 2.68 cm Ao Asc 2.76 cm (2.1-3.4) LVOT LVOT 1.84 cm Ratios IVS LA Biplane LAVol I BP 17.4 ml/m2 Right Ventricle Right Ventricle 3.59 cm Right Ventricle 3.34 cm MMODE TA Tricuspid Annul 3.26 cm Signed 07/30/2022 05:33 PM Stanislav Frances M.D. Nae Wayne MD ECHO Final Result * US SUZANNE DUPLEX LOW EXT GATO (07/30/2022 11:30 AM CDT) Anatomical Region Laterality Modality NA Ultrasound 07/30/2022 9:30 PM CDT Impressions 07/30/2022 9:35 PM CDT IMPRESSION: 1. No evidence of deep venous thrombosis in the imaged bilateral lower extremities. Referred By: LIAT QUINONES Interpreted By: Monica De La O MD, 07/30/2022 9:30 PM Narrative 07/30/2022 9:35 PM CDT EXAMINATION: Duplex Doppler ultrasound exam of bilateral lower extremities, with grayscale, color-flow, and spectral analysis imaging. INDICATION: Clinical concern for deep venous thrombosis in bilateral lower extremities. COMPARISON: None FINDINGS: The imaged portions of the visualized bilateral distal common femoral, deep femoral, superficial femoral, and popliteal veins, and the imaged segments of bilateral posterior tibial and peroneal veins show no evidence of intraluminal clot with normal compressibility and augmentation with distal compression. The limited imaged segment of the greater saphenous veins demonstrate no evidence of intraluminal clot, with normal compressibility at the saphenofemoral junction. Procedure Note Monica De La O MD - 07/30/2022 EXAMINATION: Duplex Doppler ultrasound exam of bilateral lowerextremities, with grayscale, color-flow, and spectral analysis imaging. INDICATION: Clinical concern for deep venous thrombosis in bilateral lowerextremities. COMPARISON: None FINDINGS: The imaged portions of the visualized bilateral distal common femoral,deep femoral, superficial femoral, and popliteal veins, and the imagedsegments of bilateral posterior tibial and peroneal veins show no evidenceof intraluminal clot with normal compressibility and augmentation withdistal compression. The limited imaged segment of the greater saphenousveins demonstrate no evidence of intraluminal clot, with normalcompressibility at the saphenofemoral junction. IMPRESSION: 1. No evidence of deep venous thrombosis in the imaged bilateral lowerextremities. Referred By: LIAT QUINONES Interpreted By: Monica De La O MD, 07/30/2022 9:30 PM Nae Wayne MD ULTRASOUND Final Result * HIV 1 ANTIGEN(S), WITH HIV-1 AND HIV-2 ANTIBODIES (07/30/2022 8:55 AM CDT) HIV 1/2 AB+ HIV1 P24 AG NON-REACTI VE NON-REACTI VE 07/30/2022 11:24 AM CDT [facility] Comment:HIV 1 p24 Ag and HIV 1/ HIV 2 Ab not detected. 07/30/2022 8:55 AM CDT Tono Bejarano MD LABORATORY Final Result [facility] [address] [place] [address], [phone] * URINE DRUG SCREEN (TOXICOLOGY) (07/30/2022 8:55 AM CDT) Pathologist [facility] PHENCYCLIDINE PCP (U) NEGATIVE NEGATIVE 07/30/2022 10:24 AM CDT [facility] BENZODIAZEPINES SCREEN (U) NEGATIVE NEGATIVE 07/30/2022 10:24 AM CDT [facility] COCAINE METABOLITES (U) NEGATIVE NEGATIVE 07/30/2022 10:24 AM CDT [facility] AMPHETAMINE (U) NEGATIVE NEGATIVE 10:24 AM CDT [facility] CANNABINOIDS SCREEN (U) NEGATIVE NEGATIVE 07/30/2022 10:24 AM CDT [facility] OPIATE SCREEN (U) NEGATIVE NEGATIVE 022 10:24 AM CDT [facility] BARBITURATES SCREEN (U) NEGATIVE NEGATIVE 07/30/2022 10:24 AM CDT [facility] URINE TOX COMMENT Unconfirmed screening results are to be used only for medical purposes. 07/30/2022 8:44 AM CDT [facility] CUTOFF CONCENTRATION (U) Cut-off Concentration for a positive result 07/30/2022 8:44 AM CDT [facility] Comment: Phencyclidine ? 25 ng/mL Benzodiazepines ? 200 ng/mL Cocaine ? 300 ng/mL Amphetamine ? 1000 ng/mL Cannabinoids ?50 ng/mL Opiates ? 300 ng/mL Barbiturates ?200 ng/mL URINE SPECIMEN / Unknown 07/30/2022 8:55 AM CDT Tono Bejarano MD URINE ORDERABLES Final Resul t [facility] [address] [place] [address], [phone] * BIOFIRE PCR UPPER RESPIRATORY PROFILE (RESPIRATORY PCR PANEL 2) (07/30/2022 7:45 AM CDT) ADENOVIRUS PCR (RESP) NOT DETECTED NOT DETECTED 07/30/2022 9:08 AM CDT [facility] CORONAVIRUS 229E PCR (RESP) NOT DETECTED NOT DETECTED 07/30/2022 9:08 AM CDT [facility] CORONAVIRUS HKU1 PCR (RESP) NOT DETECTED NOT DETECTED 07/30/2022 9:08 AM CDT [facility] CORONAVIRUS NL63 PCR (RESP) NOT DETECTED NOT DETECTED 07/30/2022 9:08 AM CDT [facility] CORONAVIRUS OC43 PCR (RESP) NOT DETECTED NOT DETECTED 07/30/2022 9:08 AM CDT [facility] METAPNEUMOVIRUS PCR (RESP) NOT DETECTED NOT DETECTED 07/30/2022 9:08 AM CDT [facility] RHINOVIRUS/ENTEROV IRUS PCR (RESP) NOT DETECTED NOT DETECTED 07/30/2022 9:08 AM CDT [facility] INFLUENZA A PCR (RESP) NOT DETECTED NOT DETECTED 07/30/2022 9:08 AM CDT [facility] INFLUENZA B PCR (RESP) NOT DETECTED NOT DETECTED 07/30/2022 9:08 AM CDT [facility] PARAINFLUENZA 1 PCR (RESP) NOT DETECTED NOT DETECTED 07/30/2022 9:08 AM CDT [facility] PARAINFLUENZA 2 PCR (RESP) NOT DETECTED NOT DETECTED 07/30/2022 9:08 AM CDT [facility] PARAINFLUENZA 3 PCR (RESP) NOT DETECTED NOT DETECTED 07/30/2022 9:08 AM CDT [facility] PARAINFLUENZA 4 PCR (RESP) NOT DETECTED NOT DETECTED 07/30/2022 9:08 AM CDT [facility] RSV PCR (RESP) NOT DETECTED NOT DETECTED 07/30/2022 9:08 AM CDT [facility] B PARAPERTUSIS PCR (RESP) NOT DETECTED NOT DETECTED 07/30/2022 9:08 AM CDT [facility] BORDETELLA PERTUSSIS PCR (RESP) NOT DETECTED NOT DETECTED 07/30/2022 9:08 AM CDT [facility] CHLAMYDOPHILA PNEUMONIAE PCR (RESP) NOT DETECTED NOT DETECTED 07/30/2022 9:08 AM CDT [facility] MYCOPLASMA PNEUMONIAE PCR (RESP) NOT DETECTED NOT DETECTED 07/30/2022 9:08 AM CDT [facility] CORONAVIRUS SARS COV 2 PCR (RESP) NOT DETECTED NOT DETECTED 07/30/2022 9:08 AM CDT [facility] FIRST TEST UNKNOWN 07/29/2022 10:03 PM CDT [facility] EMPLOYED IN HEALTHCARE NO 07/29/2022 10:03 PM CDT [facility] SYMPTOMATIC DEFINED BY CDC UNKNOWN 07/29/2022 10:03 PM CDT [facility] HOSPITALIZATION STATUS YES 07/29/2022 10:03 PM CDT [facility] PATIENT IN ICU YES 07/29/2022 10:03 PM CDT [facility] RESIDENT OF [facility] NO 07/29/2022 10:03 PM CDT [facility] NOT 07/29/2022 10:03 PM CDT [facility] NASOPHARYNGEAL SWAB / Unknown 07/30/2022 7:45 AM CDT Nae Wayne MD MICROBIOLOGY - GENERAL ORDERABLES Final Result Performing Organization Address [facility] Co de Phone Number [facility] [address] [place] [address], [phone] * (ABNORMAL) POCT glucose (07/30/2022 6:15 AM CDT) GLUCOSE POC 330(H) 70 - 109 07/30/2022 6:17 AM CDT [facility] 07/30/2022 6:15 AM CDT Tono Bejarano MD POCT ORDERABLES - DEVICE Fin al Result Performing Organization Address [facility] de Phone Number [facility] [address] [place] [address], [phone] * XR CHEST PORTABLE (07/30/2022 5:27 AM CDT) Anatomical Region Laterality Modality Chest Radiographic Nissa ging 07/30/2022 7:48 AM CDT Impressions 07/30/2022 7:49 AM CDT ======== IMPRESSION: ======== ?? 1. ??Diffuse patchy pulmonary infiltrates bilaterally with right lower lung predominance. Small effusions not excluded. Ordered By: NAE WAYNE Interpreted By: Tyrel Yeung MD, 07/30/2022 7:48 AM Narrative 07/30/2022 7:49 AM CDT Examination: Chest Radiograph, 1 view Exam Date/Time: 07/30/2022 5:27 AM Reason For Exam: ??PNA ? Respiratory failure, hypoxia Comparison: None Technique: Single AP view of the chest. Findings: ??Diffuse patchy bilateral pulmonary infiltrates with right lower lung predominance. Tiny effusions not excluded. No pneumothorax. Heart size prominent but within normal limits for AP technique. Pulmonary vascularity within normal limits. Procedure Note Tyrel Yeung MD - 07/30/2022 Examination: Chest Radiograph, 1 view Exam Date/Time: 07/30/2022 5:27 AM Reason For Exam: PNA Respiratory failure, hypoxia Comparison: None Technique: Single AP view of the chest. Findings: Diffuse patchy bilateral pulmonary infiltrates with right lowerlung predominance. Tiny effusions not excluded. No pneumothorax. Heartsize prominent but within normal limits for AP technique. Pulmonaryvascularity within normal limits. ======== IMPRESSION: ======== 1. Diffuse patchy pulmonary infiltrates bilaterally with right lower lungpredominance. Small effusions not excluded. Ordered By: NAE WAYNE Interpreted By: Tyrel Yeung MD, 07/30/2022 7:48 AM Nae Wayne MD GENERAL IMAGING Final Result * (ABNORMAL) CBC W/DIFF AUTOMATED (07/30/2022 5:10 AM CDT) WBC 13.6(H) 4.0 - 10.8 x10'3/uL 07/30/2022 5:29 AM CDT [facility] RBC 3.65(L) 4.10 - 5.40 x10'6/uL 07/30/2022 5:29 AM CDT [facility] HGB 10.3(L) 12.0 - 16.0 G/DL 07/30/2022 5:29 AM CDT [facility] HCT 32.7(L) 36.0 - 47.0 % 07/30/2022 5:29 AM CDT [facility] MCV 89.6 78.0 - 100.0 FL 07/30/2022 5:29 AM CDT [facility] MCH 28.2 27.0 - 31.0 PG 07/30/2022 5:29 AM CDT [facility] MCHC 31.5(L) 33.0 - 36.0 G/DL 07/30/2022 5:29 AM CDT [facility] RDW 13.6 11.5 - 14.5 % 07/30/2022 5:29 AM CDT [facility] PLT 364(H) 150 - 350 x10'3/uL 07/30/2022 5:29 AM CDT [facility] MPV 10.7(H) 7.4 - 10.4 FL 07/30/2022 5:29 AM CDT [facility] ABS. NEUTROPHILS 12.70(H) 1.60 - 8.30 x10'3/uL 07/30/2022 5:29 AM CDT [facility] ABS. LYMPHOCYTES 0.56(L) 0.80 - 4.70 x10'3/uL 07/30/2022 5:29 AM CDT [facility] ABS. MONOCYTES 0.26 0.00 - 1.50 x10'3/uL 07/30/2022 5:29 AM CDT [facility] ABS. EOSINOPHILS 0.00 0.00 - 0.40 x10'3/uL 07/30/2022 5:29 AM CDT [facility] ABS. BASOPHILS 0.02 0.00 - 0.20 x10'3/uL 07/30/2022 5:29 AM CDT [facility] ABS. IMMATURE GRANULOCYTES 0.07(H) 0.00 - 0.03 x10'3/uL 07/30/2022 5:29 AM CDT [facility] ABS. NUCLEATED RBC'S 0.00 0.0 x10'3/uL 07/30/2022 5:29 AM CDT [facility] 07/30/2022 5:10 AM CDT Nae Wayne MD LABORATORY Final Result [facility] [address] [place] [address], [phone] * (ABNORMAL) COMPREHENSIVE METABOLIC PANEL (07/30/2022 5:10 AM CDT) SODIUM S/P/B 140 136 - 145 MMOL/L 07/30/2022 5:48 AM CDT [facility] POTASSIUM S/P/B 3.5 3.5 - 5.1 MMOL/L 07/30/2022 5:48 AM CDT [facility] CHLORIDE S/P/B 108(H) 98 - 107 MMOL/L 07/30/2022 5:48 AM CDT [facility] CO2 26.3 21.0 - 32.0 MMOL/L 07/30/2022 5:48 AM CDT [facility] GLUCOSE 307(H) 74 - 106 MG/DL 07/30/2022 5:48 AM CDT [facility] BUN 14 7 - 18 MG/DL 07/30/2022 5:48 AM CDT [facility] CREATININE S/P/B 1.58(H) 0.55 - 1.02 MG/DL 07/30/2022 5:48 AM CDT [facility] CALCIUM S/P/B 8.1(L) 8.5 - 10.1 MG/DL 07/30/2022 5:48 AM CDT [facility] BILIRUBIN TOTAL S/P/B 0.3 0.2 - 1.0 MG/DL 07/30/2022 5:48 AM CDT [facility] ALKALINE PHOSPHATASE S/P/B 73 37 - 98 U/L 07/30/2022 5:48 AM CDT [facility] AST 14(L) 15 - 37 U/L 07/30/2022 5:48 AM CDT [facility] ALT 17 13 - 56 U/L 07/30/2022 5:48 AM CDT [facility] TOTAL PROTEIN S/P/B 5.5(L) 6.4 - 8.2 G/DL 07/30/2022 5:48 AM CDT [facility] ALBUMIN S/P/B 1.4(L) 3.4 - 5.0 G/DL 07/30/2022 5:48 AM CDT [facility] ANION GAP 5.7 5.0 - 15.0 MMOL/L 07/30/2022 5:48 AM T [facility] OSMOLALITY (CALC) 302 MOSM/KG 022 5:48 AM T [facility] Comment:REFERENCE RANGE NOT ESTABLISHED GFR ESTIMATE 45(L) >90 ML/MIN/1. 73 M2 07/30/2022 5:48 AM CDT [facility] GFR NOTES GFR REFERENCE S: 07/30/2022 5:48 AM T [facility] Comment: THE ESTIMATED GFR IS CALCULATED USING THE 2020 CKD-EPI EQUATION. THE FOLLOWING CATEGORIES FOR GRADING RENAL FUNCTION ARE RECOMMENDED BY THE INTERNATIONAL SOCIETY OF NEPHROLOGY (KDIGO 2012 CLINICAL PRACTICE GUIDELINE). G1,NORMAL OR HIGH: >89 ml/min/1.73 m2 G2,MILDLY DECREASED: 60-89 ml/min/1.73 m2 G3A,MILDLY TO MODERATELY DECREASED: 45-59 ml/min/1.73 m2 G3B,MODERATELY TO SEVERELY DECREASED: 30-44 ml/min/1.73 m2 G4,SEVERELY DECREASED: 15-29 ml/min/1.73 m2 G5,KIDNEY FAILURE: <15 ml/min/1.73 m2 07/30/2022 5:10 AM CDT Nae Wayne MD LABORATORY Final Result Performing Organization Address [facility] Co de Phone Number [facility] [address] [place] [address], [phone] * (ABNORMAL) POCT glucose (07/30/2022 12:01 AM CDT) Pathologist [facility] GLUCOSE POC 358(H) 70 - 109 07/30/2022 12:15 AM CDT [facility] 07/30/2022 12:0 1 AM CDT us Nae Wayne MD POCT ORDERABLES - MAX CE Final Result Performing Organization Address [facility] de Phone Number [facility] [address] [place] [address], [place] [phone] * (ABNORMAL) PROTEIN CREAT RATIO URINE (07/29/2022 11:05 PM CDT) [facility] [address] PROTEIN RANDOM (U) 1,132.9(H) <12.0 MG/DL 07/30/2022 12:39 AM CDT [facility] CREATININE (U) 132.0 MG/DL 07/30/2022 12:39 AM CDT [facility] Comment:REFERENCE RANGE NOT ESTABLISHED PROTEIN/CREATINI NE RATIO 8.6 07/30/2022 12:39 AM CDT [facility] URINE SPECIMEN / Unknown 07/29/2022 11:05 PM CDT us Nae Wayne MD URINE ORDERABLES Final Result Performing Organization Address [facility] Co de Phone Number [facility] [address] [place] [address], [place] [phone] * HISTOPLASMA ANTIGEN URINE (07/29/2022 11:05 PM CDT) [facility] [address] HISTOPLASMA ANTIGEN <0.2 ng/mL 08/03/2022 12:17 AM CDT [employer] [facility] Comment: REFERENCE RANGE: <0.2 ng/mL Histoplasma galactomannan is frequently detected in urine from patients with disseminated histoplasmosis. However, a negative result does not exclude a diagnosis of histoplasmosis. Many patients with acute pulmonary disease or chronic cavitary disease do not exhibit antigenuria. Specimens from patients with other endemic fungal infections, such as blastomycosis, paracoccidioidomycosis, or candidiasis, may also be positive in this assay. This test should be used in conjunction with other diagnostics tests, including culture, molecular assays, and histology in making a final diagnosis. Test performed by [facility] ? [id number], ? [place] [address] ? Director Clinical Pharmacology: Ritika Asher MD,PHD,ASHLEY Test Reported by Kike Powelltilly, [facility], [id number] [place] [address] Orestes Espino M.D., Ph.D., Director of Laboratories , [facility] [id number] URINE SPECIMEN OBTAINED VIA [employer] URINARY CATHETER / Unknown 07/29/2022 11:05 PM CDT Nae Wayne MD URINE ORDERABLES Final Result [email or web address] [id number] [place], [place] , * STREP PNEUMO AG URINE (07/29/2022 11:05 PM CDT) S. PNEUMONIAE URINARY AG NEGATIVE NEGATIVE 07/30/2022 1:21 PM CDT [facility] Comment: PRESUMPTIVE NEGATIVE FOR PNEUMOCOCCAL PNEUMONIA, SUGGESTING NO CURRENT OR RECENT PNEUMOCOCCAL INFECTION. INFECTION DUE TO STREPTOCOCCUS PNEUMONIA CANNOT BE RULED OUT SINCE THE ANTIGEN PRESENT IN THE SAMPLE MAY BELOW THE DETECTION LIMIT OF THE TEST. SPECIMEN TYPE URINE FORTUNE CATH 07/29/2022 11:03 PM CDT [facility] URINE SPECIMEN OBTAINED VIA [employer] URINARY CATHETER / Unknown 07/29/2022 11:05 PM CDT us Nae Wayne MD MICROBIOLOGY - GENERAL ORDERABLES Final Result Performing Organization Address [facility] de Phone Number [facility] [address] [place] [address], [phone] * LEGIONELLA AG URINE (07/29/2022 11:05 PM CDT) LEGIONELLA ANTIGEN (URINE) NEGATIVE NEGATIVE 07/30/2022 1:58 PM CDT [facility] Comment: PRESUMPTIVE NEGATIVE FOR L. PNEUMOPHILA SEROGROUP 1 ANTIGEN IN URINE, SUGGESTING NO RECENT OR CURRENT INFECTION. INFECTION DUE TO LEGIONELLA CANNOT BE RULED OUT SINCE OTHER SEROGROUPS AND SPECIES MAY CAUSE DISEASE, ANTIGEN MAY NOT BE PRESENT IN URINE IN EARLY INFECTION, AND THE LEVEL OF ANTIIGNE PRESENT IN THE URINE MAY BE BELOW THE DETECTION LIMIT OF THE TEST. URINE SPECIMEN / Unknown 07/29/2022 11:05 PM CDT us Nae Wayne MD MICROBIOLOGY - GENERAL ORDERABLES Final Result Performing Organization Address [facility] de Phone Number [facility] [address] [place] [address], [phone] * PARTIAL THROMBOPLASTIN TIME,PTT (07/29/2022 10:35 PM CDT) PTT 32.1 25.1 - 36.5 SEC 07/29/2022 11:18 PM CDT [facility] 07/29/2022 10:3 5 PM CDT us Nae Wayne MD LABORATORY Final Result Performing Organization Address [facility]/ZIP Co de Phone Number [facility] [address] [place] [address], [phone] * PROTIME/INR, VENOUS (07/29/2022 10:35 PM CDT) Pathologist [facility] PROTIME 12.4 9.4 - 12.5 SEC 07/29/2022 11:15 PM CDT [facility] INR 1.1 0.8 - 1.1 07/29/2022 11:15 PM CDT [facility] 07/29/2022 10:3 5 PM CDT Nae Wayne MD LABORATORY Final Result Performing Organization Address [facility] Co de Phone Number [facility] [address] [place] [address], [phone] * MRSA SCREENING (07/29/2022 10:05 PM CDT) [facility] [address] SPECIMEN SOURCE RESPIRATORY, NOSE 07/29/2022 10:03 PM CDT [facility] MRSA BY PCR NASAL METHICILLIN RESISTANT STAPH AUREUS DETECTED. 07/30/2022 11:35 AM CDT [facility] Comment: CRITICAL RESULT, SPECIMEN DATE, TIME WERE READ BACK BY AMAODR SAMUEL AT 1134 ON [id number]. DC NASAL STRUCTURE / Unknown 07/29/2022 10:05 PM CDT us Nae Wayne MD MICROBIOLOGY - GENERAL ORDERABLES Final Result Performing Organization Address [facility]/ZIP Co de Phone Number [facility] [address] [place] [address], [place] [phone] * C-REACTIVE PROTEIN, HIGH SENSITIVITY (07/29/2022 10:00 PM CDT) [facility]-CRP 11.10 mg/dL 07/29/2022 11:09 PM CDT [facility] Comment:ACUTE INFLAMMATION: >1.00 mg/dL 07/29/2022 10:0 0 PM CDT us Nae Wayne MD LABORATORY Final Result Performing Organization Address [facility] Co de Phone Number [facility] [address] [place] [address], [phone] * THYROID STIM HORMONE, TSH (07/29/2022 10:00 PM CDT) [facility] [address] TSH 1.900 0.358 - 3.740 uIU/ML 07/29/2022 11:01 PM CDT [facility] Comment: ASSAY PERFORMED BY CHEMILUMINESCENCE METHODOLOGY USING [employer] [facility]. PATIENT RESULTS DETERMINED BY ASSAYS USING DIFFERENT MANUFACTURERS FOR METHODS MAY NOT BE COMPARABLE. 07/29/2022 10:0 0 PM CDT us Nae Wayne MD LABORATORY Final Result Performing Organization Address [facility] de Phone Number [facility] [address] [place] [address], [phone] * PHOSPHORUS, INORGANIC PHOSPHATE (07/29/2022 10:00 PM CDT) [facility] [address] [facility] PHOSPHORUS 3.9 2.5 - 4.9 MG/DL 07/29/2022 11:01 PM CDT [facility] 07/29/2022 10:0 0 PM CDT us Nae Wayne MD LABORATORY Final Result Performing Organization Address [facility] Co de Phone Number [facility] [address] [place] [address], [phone] * MAGNESIUM (07/29/2022 10:00 PM CDT) Pathologist [facility] MAGNESIUM 2.0 1.6 - 2.6 MG/DL 07/29/2022 11:01 PM CDT [facility] Comment:RESULT QUESTIONABLE DUE TO HEMOLYSIS, RECOMMEND RECOLLECTION. 07/29/2022 10:0 0 PM CDT Nae Wayne MD LABORATORY Final Result Performing Organization Address City/[facility]/ZIP Co de Phone Number [facility] [address] [place] [address], [place] [phone] * TROPONIN, QUANT (07/29/2022 10:00 PM CDT) [facility] [address] [facility] TROPONIN I HIGH SENSITIVITY 19 0 - 53 ng/L 07/29/2022 11:01 PM CDT [facility] 07/29/2022 10:0 0 PM CDT Nae Wayne MD LABORATORY Final Result Performing Organization Address [facility] Co de Phone Number [facility] [address] [place] [address], [place] [phone] * (ABNORMAL) HEMOGLOBIN, GLYCOSYLATED (07/29/2022 10:00 PM CDT) Pathologist [facility] HGB A1C 13.0(H) <5.7 % 07/29/2022 10:39 PM CDT [facility] ESTIMATED AVG GLUCOSE 326(H) 74 - 114 MG/DL 07/29/2022 10:39 PM CDT [facility] 07/29/2022 10:0 0 PM CDT Nae Wayne MD LABORATORY Final Result [facility] [address] [place] [address], [place] [phone] * (ABNORMAL) POCT glucose (07/29/2022 9:38 PM CDT) GLUCOSE POC 330(H) 70 - 109 07/29/2022 9:43 PM CDT [facility] 07/29/2022 9:38 PM CDT Henok Dawkins MD POCT ORDERABLES - DEVICE Madeline l Result Performing Organization Address [facility] Co de Phone Number [facility] [address] [place] [address], [place] [phone] documented in this encounter Visit Diagnoses Diagnosis Acute hypoxemic respiratory failure ([facility])- Primary Acute hypoxemic respiratory failure ([facility]/HCC) Primary hypertension Unspecified essential hypertension Hypokalemia Hypopotassemia Morbid obesity ([facility]/HCC) Morbid obesity Pneumonia due to infectious organism, unspecified laterality, unspecified part of lung Pulmonary infiltrate Other nonspecific abnormal finding of lung field Morbid obesity ([facility]/HCC) Morbid obesity documented in this encounter Admitting Diagnoses Diagnosis Respiratory failure with hypoxia ([facility]) Acute respiratory failure documented in this encounter Administered Medications Inactive Administered Medications - up to 3 most recent administrations Medication Order MAR Action Action Date Dose Rate Site acetaminophen (TYLENOL) suppository 650 mg 650 mg, Rectal, Every 4 hours PRN, Fever, Temperature greater than 38.5 C (101.5 F), Starting on Fri07/29/22 at 2144, Until Fri08/07/22 at 2308, Maximum dose of acetaminophen is 4000 mg from all sources in 24 hours. acetaminophen (TYLENOL) tablet 650 mg 650 mg, Oral, Every 4 hours PRN, Fever, Temperature greater than 38.5 C (101.5 F), Starting on Fri07/29/22 at 2144, Until Fri08/07/22 at 2308, Maximum dose of acetaminophen is 4000 mg from all sources in 24 hours. albuterol sulfate HFA 108 (90 Base) MCG/ACT inhaler 2 puff 2 puff, Inhalation, Every 6 hours PRN, Shortness of breath, Starting on Fri07/31/22 at 1021, Until Fri08/07/22 at 2308 amLODIPine (NORVASC) tablet 10 mg 10 mg, Oral, Daily, First dose on Fri07/31/22 at 1200, Until Discontinued Given 08/07/2022 10:06 AM CDT 10 mg Given 08/06/2022 8:39 AM CDT 10 mg Given 08/05/2022 8:37 AM CDT 10 mg amLODIPine (NORVASC) tablet 5 mg 5 mg, Oral, Daily, First dose on Fri07/29/22 at 2200, Until Discontinued Given 07/30/2022 8:14 PM CDT 5 mg Given 07/29/2022 10:25 PM CDT 5 mg carvedilol (COREG) tablet 12.5 mg 12.5 mg, Oral, 2 times daily, First dose (after last modification) on Fri08/05/22 at 0900, Until Discontinued, Take with meal or snackIndications:Primary hypertension Given 08/07/2022 10:05 AM CDT 12.5 mg Given 08/06/2022 8:53 PM CDT 12.5 mg Given 08/06/2022 8:39 AM CDT 12.5 mg carvedilol (COREG) tablet 6.25 mg 6.25 mg, Oral, 2 times daily, First dose on Fri08/04/22 at 0900, Until Discontinued, Take with meal or snack Given 08/04/2022 8:48 PM CDT 6.25 mg Given 08/04/2022 9:39 AM CDT 6.25 mg ceFEPIme (MAXIPIME) 2 g in sodium chloride (PF) 0.9 % 10 mL IV 2 g, Intravenous, Administer over 5 Minutes, Every 12 hours, 12 doses, First dose on 08/03/22 at 1115, Last dose on Heide 08/08/22 at 2315 Given 08/06/2022 12:01 PM CDT 2 g 12 0 mL/hr Given 08/05/2022 11:15 PM CDT 2 g 120 mL/hr Given 08/05/2022 12:50 PM CDT 2 g 120 mL/hr doxycycline hyclate (VIBRA-TABS) tablet 100 mg 100 mg, Oral, Every 12 hours scheduled (2 times per day), First dose on Fri07/29/22 at 2200, Until Discontinued Given 08/01/2022 8:30 AM CDT 100 mg Given 07/31/2022 9:50 PM CDT 100 mg Given 07/31/2022 2:07 PM CDT 100 mg enoxaparin (LOVENOX) 40 MG/0.4ML syringe 40 mg 40 mg, Subcutaneous, Every 12 hours scheduled (2 times per day), First dose on Fri07/29/22 at 2200, Until Discontinued, Administer by deep SubQ injection alternating between the left or right anterolateral and left or right posterolateral abdominal wall. Given 08/07/2022 10:06 AM CDT 40 mg Right Lower Abdomen Given 08/06/2022 8:53 PM CDT 40 mg Ri ght Lower Abdomen Given 08/06/2022 8:38 AM CDT 40 mg Le ft Upper Abdomen fentaNYL (SUBLIMAZE) injection 200 mcg 200 mcg, Intravenous, Once, 1 dose, On Fri07/31/22 at 1115, If intravenous (IV) route has been ordered, give over 1-2 minutes. Given 07/31/2022 11:29 AM CDT 50 mcg ferrous sulfate (65 mg elemental) tablet 325 mg 325 mg (1 tablet), Oral, Daily with breakfast, First dose on Fri08/04/22 at 0800, Until Discontinued, Administer 2 hours prior to or 4 hours after antacids. Ferrous Sulfate 324 and 325 mg tablets contain 65 mg elemental iron. Given 08/06/2022 8:39 AM CDT 325 mg Given 08/05/2022 8:36 AM CDT 325 mg Given 08/04/2022 9:39 AM CDT 325 mg ferrous sulfate (65 mg elemental) tablet 325 mg 325 mg (1 tablet), Oral, Daily with lunch, First dose (after last modification) on Fri08/07/22 at 1200, Until Discontinued, Administer 2 hours prior to or 4 hours after antacids. Ferrous Sulfate 324 and 325 mg tablets contain 65 mg elemental iron. Give separate from levofloxacin Given 08/07/2022 12:13 PM CDT 325 mg furosemide (LASIX) injection 20 mg 20 mg, Intravenous, 2 times daily, First dose (after last modification) on Fri07/30/22 at 0900, Until Discontinued, Administer IV push 20-40mg/min. Given 07/30/2022 9:04 AM CDT 20 mg furosemide (LASIX) injection 20 mg 20 mg, Intravenous, Once, 1 dose, On Fri07/31/22 at 2000, Administer IV push 20-40mg/min. Given 07/31/2022 9:50 PM CDT 20 mg furosemide (LASIX) injection 20 mg 20 mg, Intravenous, Once, 1 dose, On Fri08/04/22 at 1300, Administer IV push 20-40mg/min.Indications:Acute hypoxemic respiratory failure (CMS/HCC [facility]) Given 08/04/2022 1:30 PM CDT 20 mg furosemide (LASIX) injection 40 mg 40 mg, Intravenous, 2 times daily, First dose on Fri07/29/22 at 2200, Until Discontinued, Administer IV push 20-40mg/min. Given 07/29/2022 10:27 PM CDT 40 mg furosemide (LASIX) injection 40 mg 40 mg, Intravenous, Once, 1 dose, On Fri07/31/22 at 2245, Administer IV push 20-40mg/min. Given 07/31/2022 10:21 PM CDT 40 mg furosemide (LASIX) injection 40 mg 40 mg, Intravenous, Once, 1 dose, On [place] 08/01/22 at 0700, Administer IV push 20-40mg/min. Given 08/01/2022 6:33 AM CDT 40 mg furosemide (LASIX) tablet 20 mg 20 mg, Oral, Daily, First dose on 08/03/22 at 1115, Until Discontinued Given 08/04/2022 9:39 AM CDT 20 mg Given 08/03/2022 11:04 AM CDT 20 mg furosemide (LASIX) tablet 20 mg 20 mg, Oral, Daily, First dose on Fri08/06/22 at 1530, Until Discontinued Given 08/07/2022 10:05 AM CDT 20 mg Given 08/06/2022 4:09 PM CDT 20 mg hydrALAZINE (APRESOLINE) injection 20 mg 20 mg, Intravenous, Once, 1 dose, On Fri07/29/22 at 2200, Monitor HR and BP before dose and 15 min after IV dose. For IV push give over 1-2 minutes=5mg/min. Given 07/29/2022 9:39 PM CDT 20 mg hydrALAZINE (APRESOLINE) injection 20 mg 20 mg, Intravenous, Every 6 hours PRN, Other, systolic >160, Starting on Fri07/29/22 at 2139, Until Fri08/07/22 at 2308, Monitor HR and BP before dose and 15 min after IV dose. For IV push give over 1-2 minutes=5mg/min. Given 08/03/2022 11:22 PM CDT 20 mg hydroCHLOROthiazide (HYDRODIURIL) tablet 25 mg 25 mg, Oral, Daily, First dose on Fri08/01/22 at 1045, Until Discontinued Given 08/03/2022 8:13 AM CDT 25 mg Given 08/02/2022 9:55 AM CDT 25 mg Given 08/01/2022 10:57 AM CDT 25 mg insulin glargine (LANTUS) injection 10 Units 10 Units, Subcutaneous, 2 times daily, First dose (after last modification) on Fri07/31/22 at 0915, Until Discontinued Given 08/06/2022 8:38 AM CDT 10 Units Left Arm Given 08/05/2022 8:19 PM CDT 10 Units Ri ght Lower Abdomen Given 08/05/2022 8:37 AM CDT 10 Units Ri ght Arm insulin glargine (LANTUS) injection 10 Units 10 Units, Subcutaneous, Nightly at bedtime, First dose (after last modification) on Fri08/08/22 at 2100, Until Discontinued insulin glargine (LANTUS) injection 15 Units 15 Units, Subcutaneous, Nightly at bedtime, First dose on Fri07/29/22 at 2200, Until Discontinued Given 07/29/2022 10:29 PM CDT 15 Units Right Lower Abdomen insulin glargine (LANTUS) injection 15 Units 15 Units, Subcutaneous, 2 times daily, First dose (after last modification) on Fri07/30/22 at 0900, Until Discontinued Given 07/30/2022 8:14 PM CDT 15 Units Right Lower Abdomen Given 07/30/2022 9:04 AM CDT 15 Units Le ft Lower Abdomen insulin glargine (LANTUS) injection 7 Units 7 Units, Subcutaneous, 2 times daily, First dose (after last modification) on Fri08/06/22 at 2100, Until Discontinued Given 08/07/2022 10:07 AM CDT 7 Units Right Arm Given 08/06/2022 8:53 PM CDT 7 Units Ri ght Arm insulin lispro (HUMALOG) injection 0-15 Units 0-15 Units, Subcutaneous, 4 times daily before meals and nightly, First dose on Fri07/29/22 at 2200, Until Discontinued, From sliding scale insulin subcut med order set - For TDI greater than or equal to 90 units Blood Glucose: (Less than 70: Initiate Hypoglycemia Standing Orders) (70 - 149, administer 0 units) (150 - 199, administer 4 units) (200 - 249, administer 8 units) (250 - 299, administer 10 units) (300 - 349, administer 12 units) (Greater than 349, administer 15 units and Call Physician) Given 08/02/2022 5:31 PM CDT 4 Units Right Arm Given 08/02/2022 7:07 AM CDT 8 Units Le ft Arm Given 08/01/2022 3:45 PM CDT 4 Units Le ft Arm insulin lispro (HUMALOG) injection 0-8 Units 0-8 Units, Subcutaneous, 4 times daily before meals and nightly, First dose on Fri08/03/22 at 1100, Until Discontinued, From sliding scale insulin subcut med order set - For TDI 30 - 59 units Blood Glucose: (Less than 70: Initiate Hypoglycemia Standing Orders) (70 - 149, administer 0 units) (150 - 199, administer 2 units) (200 - 249, administer 3 units) (250 - 299, administer 5 units) (300 - 349, administer 7 units) (Greater than 349, administer 8 units and Call Physician) Given 08/06/2022 8:54 PM CDT 2 Units Right Arm Given 08/05/2022 9:55 PM CDT 2 Units Le ft Arm Given 08/05/2022 6:25 AM CDT 5 Units Ri ght Arm insulin lispro (HUMALOG) injection 10 Units 10 Units, Subcutaneous, 3 times daily with meals, First dose on Fri07/30/22 at 1200, Until Discontinued, For sliding scale, activate Sliding Scale Insulin order set. Given 07/30/2022 5:46 PM CDT 10 Units Left Arm Given 07/30/2022 12:21 PM CDT 10 Units L eft Arm insulin lispro (HUMALOG) injection 10 Units 10 Units, Subcutaneous, 3 times daily with meals, First dose (after last modification) on 08/03/22 at 0800, Until Discontinued, For sliding scale, activate Sliding Scale Insulin order set. Given 08/03/2022 4:29 PM CDT 10 Units Right Arm Given 08/03/2022 8:12 AM CDT 10 Units Ri ght Arm insulin lispro (HUMALOG) injection 5 Units 5 Units, Subcutaneous, 3 times daily with meals, First dose (after last modification) on [place] 08/01/22 at 1200, Until Discontinued, For sliding scale, activate Sliding Scale Insulin order set. Given 08/02/2022 7:08 AM CDT 5 Units Left Arm Given 08/01/2022 3:45 PM CDT 5 Units Le ft Arm Given 08/01/2022 11:01 AM CDT 5 Units L eft Arm insulin lispro (HUMALOG) injection 5 Units 5 Units, Subcutaneous, 3 times daily with meals, First dose (after last modification) on Fri08/07/22 at 1700, Until Discontinued, For sliding scale, activate Sliding Scale Insulin order set. Given 08/07/2022 4:59 PM CDT 5 Units Right Lower Abdomen insulin lispro (HUMALOG) injection 7 Units 7 Units, Subcutaneous, 3 times daily with meals, First dose (after last modification) on 08/04/22 at 0800, Until Discontinued, For sliding scale, activate Sliding Scale Insulin order set. Given 08/07/2022 12:13 PM CDT 7 Units Left Arm Given 08/06/2022 8:55 PM CDT 7 Units Ri ght Arm Given 08/05/2022 12:55 PM CDT 7 Units L eft Lower Abdomen insulin lispro (HUMALOG) injection 8 Units 8 Units, Subcutaneous, 3 times daily with meals, First dose (after last modification) on Fri08/02/22 at 1200, Until Discontinued, For sliding scale, activate Sliding Scale Insulin order set. Given 08/02/2022 5:32 PM CDT 8 Units Right Arm Given 08/02/2022 12:34 PM CDT 8 Units R ight Arm levoFLOXacin (LEVAQUIN) tablet 750 mg 750 mg, Oral, Daily, 6 doses, First dose on Fri08/06/22 at 1530, Last dose on 08/11/22 at 0900 Given 08/07/2022 10:06 AM CDT 750 mg Given 08/06/2022 4:09 PM CDT 750 mg lidocaine (XYLOCAINE) 1 % injection SOLN 50 mL 50 mL, Tracheal Tube, Once, 1 dose, On Fri07/31/22 at 1115 Given 07/31/2022 11:05 AM CDT 40 mLs lidocaine (XYLOCAINE) 2 % jelly Topical, As needed, Mild pain (Scale 1 - 3), 1 dose, Starting on Fri07/31/22 at 1055, Until Fri07/31/22 at 1129 Given 07/31/2022 11:29 AM CDT linezolid (ZYVOX) tablet 600 mg 600 mg, Oral, Every 12 hours scheduled (2 times per day), 10 doses, First dose on Fri08/03/22 at 1115, Last dose on Fri08/07/22 at 2100 Given 08/06/2022 8:39 AM CDT 600 mg Given 08/05/2022 8:19 PM CDT 600 mg Given 08/05/2022 8:36 AM CDT 600 mg methylPREDNISolone sodium succinate (SOLU-Medrol) injection 40 mg 40 mg, Intravenous, Once, 1 dose, On [place] 08/01/22 at 0015, If ordered IV, administer into a vein over 3-15 minutes. Doses >= 2 mg/kg or 250mg should be given by infusion, unless the benefits of IV injection outweigh the risks (life-threatening shock) Given 08/01/2022 12:23 AM CDT 40 mg midazolam (VERSED) injection 10 mg 10 mg, Intravenous, Once, 1 dose, On Fri07/31/22 at 1115 Given 07/31/2022 11:29 AM CDT 6 mg normal saline 0.9 % flush 3-10 mL 3-10 mL, Intravenous, Every 8 hours, First dose on Fri07/29/22 at 2200, Until Discontinued Given 08/03/2022 5:45 AM CDT 10 mLs Given 08/02/2022 9:11 PM CDT 10 mLs Given 08/02/2022 2:19 PM CDT 10 mLs normal saline 0.9 % flush 3-10 mL 3-10 mL, Intravenous, As needed, Line care, Starting on Fri07/29/22 at 2140, Until Fri08/07/22 at 2308 normal saline 0.9 % flush 3-10 mL 3-10 mL, Intravenous, 2 times daily, First dose (after last modification) on Fri08/03/22 at 2100, Until Discontinued Given 08/07/2022 11:05 AM CDT 10 mLs Given 08/06/2022 8:55 PM CDT 10 mLs Given 08/06/2022 8:39 AM CDT 10 mLs ondansetron (ZOFRAN) injection 4 mg 4 mg, Intravenous, Every 8 hours PRN, Nausea, Vomiting, Starting on Fri07/31/22 at 2348, Until Fri08/07/22 at 2308, IV push over 2-5 minutes. pantoprazole EC (PROTONIX) tablet 40 mg 40 mg, Oral, Daily, First dose on Fri08/02/22 at 1315, Until Discontinued, Do not break, chew, or crush. Given 08/07/2022 10:05 AM CDT 40 mg Given 08/06/2022 8:39 AM CDT 40 mg Given 08/05/2022 8:36 AM CDT 40 mg perflutren lipid microsphere (DEFINITY) injection 2 mL 2 mL, Intravenous, IMG once as needed, Contrast, 1 dose, Starting on Fri07/30/22 at 1045, Until Fri08/07/22 at 2308, Administer over 30-60 seconds. Follow with 10 mL saline flush. piperacillin-tazobactam (ZOSYN) 3.375 g in sodium chloride 0.9 % 50 mL IVPB 3.375 g, Intravenous, Administer over 240 Minutes, Every 8 hours, First dose on Fri07/29/22 at 2300, Until Discontinued, Administer over 4 hours (extended infusion). New Bag 08/03/2022 5:44 AM CDT 3.375 g 12.5 mL/hr New Bag 08/02/2022 10:55 PM CDT 3.375 g 12.5 mL/hr New Bag 08/02/2022 2:16 PM CDT 3.375 g 12.5 mL/hr polyethylene glycol (GLYCOLAX) packet 17 g 17 g, Oral, Daily as needed, Constipation, Starting on Fri07/31/22 at 2348, Until Fri08/07/22 at 2308, If more than one agent is ordered as needed for constipation, use in this order: docusate, polyethylene glycol, senna, bisacodyl tablet, milk of magnesia, bisacodyl suppository. If constipation is not resolved, move to the next ordered medication at next dosing interval. potassium chloride (KLOR-CON) packet 2 packet 2 packet (40 mEq), Oral, Once, 1 dose, On Fri07/29/22 at 2215, Dissolve powder in 240 mL water Given 07/29/2022 10:24 PM CDT 2 packets potassium chloride (KLOR-CON) packet 2 packet 2 packet (40 mEq), Oral, Once, 1 dose, On Fri08/04/22 at 1300, Dissolve powder in 240 mL waterIndications:Acute hypoxemic respiratory failure (CMS/HCC [facility]) Given 08/04/2022 1:30 PM CDT 2 packets potassium chloride (KLOR-CON) packet 2 packet 2 packet (40 mEq), Oral, Once, 1 dose, On Fri08/05/22 at 0945, Dissolve powder in 240 mL water Given 08/05/2022 9:48 AM CDT 2 packets potassium chloride 40 mEq in NS 500 mL IVPB 40 mEq, Intravenous, Administer over 240 Minutes, Once, 1 dose, On Fri07/30/22 at 0700, MAX rate in peripheral line of 10 mEq per hour. New Bag 07/30/2022 7:01 AM CDT 40 mEq 125 mL/hr potassium chloride 40 mEq in NS 500 mL IVPB 40 mEq, Intravenous, Administer over 240 Minutes, Once, 1 dose, On Fri07/31/22 at 0645, MAX rate in peripheral line of 10 mEq per hour. New Bag 07/31/2022 6:37 AM CDT 40 mEq 125 mL/hr potassium chloride CR (KLOR-CON M) tablet 40 mEq 40 mEq, Oral, Once, 1 dose, On Fri08/03/22 at 1100, Do not chew, crush, or suck on tablet. May break in half. May dissolve whole tablet in 120 mL of water and drink immediately. Given 08/03/2022 11:04 AM CDT 40 mEq potassium chloride CR (KLOR-CON M) tablet 40 mEq 40 mEq, Oral, Every 4 hours, 2 doses, First dose on 08/04/22 at 0745, Last dose on Fri08/04/22 at 1145, Do not chew, crush, or suck on tablet. May break in half. May dissolve whole tablet in 120 mL of water and drink immediately. Given 08/04/2022 12:05 PM CDT 40 mEq Given 08/04/2022 9:38 AM CDT 40 mEq predniSONE (DELTASONE) tablet 40 mg 40 mg, Oral, Daily, First dose on Fri07/29/22 at 2215, Until Discontinued Given 07/29/2022 10:25 PM CDT 40 mg senna-docusate (SENOKOT-S) 8.6-50 MG tablet 1 tablet 1 tablet, Oral, Nightly at bedtime, First dose on Fri07/29/22 at 2200, Until Discontinued Given 07/31/2022 9:50 PM CDT 1 tablet Given 07/30/2022 8:14 PM CDT 1 tablet vancomycin 1250 mg in NS 250 mL IVPB 1,250 mg, Intravenous, at 166.7 mL/hr, Every 24 hours, First dose (after last modification) on Fri08/01/22 at 1700, Until Discontinued New Bag 08/02/2022 6:41 PM CDT 1,250 mg 166.7 mL/hr New Bag 08/01/2022 4:59 PM CDT 1,250 mg 166.7 mL/hr vancomycin 1500 mg in NS 500 mL IVPB 1,500 mg, Intravenous, at 250 mL/hr, Every 24 hours, First dose on Fri07/30/22 at 1700, Until Discontinued New Bag 07/31/2022 5:04 PM CDT 1,500 mg 250 mL/hr New Bag 07/30/2022 5:46 PM CDT 1,500 mg 250 mL/hr documented in this encounter Active and Recently Administered Medications Times are shown in CDT. Scheduled Medication Order 08/05/2022 08/06/2022 08/07/2022 amLODIPine (NORVASC) tablet 10 mg 10 mg, Oral, Daily, First dose on Fri07/31/22 at 1200, Until Discontinued 0837 (Given - Provider: Neelam Marcus RN) 0839 (Given - Provider: Ying Sow RN) 1006 (Given - Provider: Orquidea Hernandez V, Nurse Student) carvedilol (COREG) tablet 12.5 mg 12.5 mg, Oral, 2 times daily, First dose (after last modification) on Fri08/05/22 at 0900, Until Discontinued, Take with meal or snack 0837 (Given - Provider: Neelam Marcus, JIMMIE)2017 (Given - Provider: Karley Cruz RN) 0839 (Given - Provider: Ying Sow RN)2052 (Given - Provider: Karley Cruz RN) 100 (Given - Provider: Orquidea Hernandez V, Nurse Student)2100 (Canceled Entry - Provider: Automatic Discharge Provider - Comment: Automatically canceled at discontinue of medication order) ceFEPIme (MAXIPIME) 2 g in sodium chloride (PF) 0.9 % 10 mL IV (CANCELED) 2 g, Intravenous, Administer over 5 Minutes, Every 12 hours, 12 doses, First dose on 08/03/22 at 1115, Last dose on [place] 08/08/22 at 2315 1250 (Given - Provider: Neelam Marcus RN)2315 (Given - Provider: Karley Cruz RN) 1201 (Given - Provider: Ying Sow RN) enoxaparin (LOVENOX) 40 MG/0.4ML syringe 40 mg(Linked Group 1) 40 mg, Subcutaneous, Every 12 hours scheduled (2 times per day), First dose on Fri07/29/22 at 2200, Until Discontinued, Administer by deep SubQ injection alternating between the left or right anterolateral and left or right posterolateral abdominal wall. 0837 (Given - Provider: Neelam Marcus RN)2018 (Given - Provider: Karley Cruz RN) 0838 (Given - Provider: Ying Sow RN)2052 (Given - Provider: Karley Cruz RN) 100 (Given - Provider: Orquidea Hernandez V, Nurse Student)2100 (Canceled Entry - Provider: Automatic Discharge Provider - Comment: Automatically canceled at discontinue of medication order) ferrous sulfate (65 mg elemental) tablet 325 mg (CANCELED) 325 mg (1 tablet), Oral, Daily with breakfast, First dose on Fri08/04/22 at 0800, Until Discontinued, Administer 2 hours prior to or 4 hours after antacids. Ferrous Sulfate 324 and 325 mg tablets contain 65 mg elemental iron. 0836 (Given - Provider: Neelam Marcus, RN) 0839 (Given - Provider: Ying Sow, RN) ferrous sulfate (65 mg elemental) tablet 325 mg 325 mg (1 tablet), Oral, Daily with lunch, First dose (after last modification) on Fri08/07/22 at 1200, Until Discontinued, Administer 2 hours prior to or 4 hours after antacids. Ferrous Sulfate 324 and 325 mg tablets contain 65 mg elemental iron. Give separate from levofloxacin 1213 (Given - Provider: Orquidea Hernandez V, Nurse Student) furosemide (LASIX) tablet 20 mg 20 mg, Oral, Daily, First dose on Fri08/06/22 at 1530, Until Discontinued 160 (Given - Provider: Ying Sow, RN) 1005 (Given - Provider: Orquidea Hernandez V, Nurse Student) insulin glargine (LANTUS) injection 10 Units (CANCELED) 10 Units, Subcutaneous, 2 times daily, First dose (after last modification) on Fri07/31/22 at 0915, Until Discontinued 0837 (Given - Provider: Neelam Marcus, JIMMIE)2019 (Given - Provider: Karley Cruz RN) 0838 (Given - Provider: Ying Sow, RN) insulin glargine (LANTUS) injection 10 Units 10 Units, Subcutaneous, Nightly at bedtime, First dose (after last modification) on Fri08/08/22 at 2100, Until Discontinued insulin glargine (LANTUS) injection 7 Units (CANCELED) 7 Units, Subcutaneous, 2 times daily, First dose (after last modification) on Fri08/06/22 at 2100, Until Discontinued 2052 (Given - Provider: Karley Cruz RN) 1007 (Given - Provider: Orquidea Hernandez V, Nurse Student) insulin lispro (HUMALOG) injection 0-8 Units 0-8 Units, Subcutaneous, 4 times daily before meals and nightly, First dose on Fri08/03/22 at 1100, Until Discontinued, From sliding scale insulin subcut med order set - For TDI 30 - 59 units Blood Glucose: (Less than 70: Initiate Hypoglycemia Standing Orders) (70 - 149, administer 0 units) (150 - 199, administer 2 units) (200 - 249, administer 3 units) (250 - 299, administer 5 units) (300 - 349, administer 7 units) (Greater than 349, administer 8 units and Call Physician) 0625 (Given - Provider: Karley Cruz RN)1132 (Not Given - Provider: Ying Sow RN - Reason: Order parameters not met - Comment: [phone] (Not Given - Provider: Ying Sow RN - Reason: Order parameters not met - Comment: [phone] (Given - Provider: Karley Cruz RN) 0548 (Not Given - Provider: Karley Cruz RN - Reason: Order parameters not met)113 (Not Given - Provider: Ying Sow RN - Reason: Order parameters not met - Comment: bs [phone] (Given - Provider: Karley Cruz RN)205 (Hold - Provider: Karley Cruz RN - Reason: Contraindicated - Comment: patient does not want to order food til 1900) 0600 (Not Given - Provider: Karley Cruz RN - Reason: Order parameters not met)1212 (Not Given - Provider: Orquidea Hernandez V, Nurse Student - Reason: Order parameters not met)1619 (Not Given - Provider: Neelam Marcus RN - Reason: Order parameters not met)2100 (Canceled Entry - Provider: Automatic Discharge Provider - Comment: Automatically canceled at discontinue of medication order) insulin lispro (HUMALOG) injection 5 Units 5 Units, Subcutaneous, 3 times daily with meals, First dose (after last modification) on Fri08/07/22 at 1700, Until Discontinued, For sliding scale, activate Sliding Scale Insulin order set. 1659 (Given - Provider: Neelam Marcus, JIMMIE) insulin lispro (HUMALOG) injection 7 Units (CANCELED) 7 Units, Subcutaneous, 3 times daily with meals, First dose (after last modification) on Fri08/04/22 at 0800, Until Discontinued, For sliding scale, activate Sliding Scale Insulin order set. 0837 (Given - Provider: Neelam Marcus RN)1255 (Given - Provider: Neelam Marcus RN)1624 (Not Given - Provider: Neelam Marcus RN - Reason: Order parameters not met - Comment: Blood sugar 92) 0838 (Not Given - Provider: Ying Sow RN - Reason: Order parameters not met - Comment: blood sugar 119 - patient not eating)1206 (Not Given - Provider: Ying Sow RN - Reason: Other - Comment: patient not eating lunch, did not eat breakfast)2054 (Given - Provider: Karley Cruz RN - Comment: patient does not want to oder food until 1900) 1012 (Not Given - Provider: Orquidea Hernandez V, Nurse Student - Reason: Other - Comment: Did not eat breakfast)1213 (Given - Provider: Orquidea Hernandez V, Nurse Student) levoFLOXacin (LEVAQUIN) tablet 750 mg 750 mg, Oral, Daily, 6 doses, First dose on Fri08/06/22 at 1530, Last dose on Fri08/11/22 at 0900 1609 (Given - Provider: Ying Sow RN) 1006 (Given - Provider: Orquidea Hernandez V, Nurse Student) linezolid (ZYVOX) tablet 600 mg (CANCELED) 600 mg, Oral, Every 12 hours scheduled (2 times per day), 10 doses, First dose on 08/03/22 at 1115, Last dose on Fri08/07/22 at 2100 0836 (Given - Provider: Neelam Marcus RN)2019 (Given - Provider: Karley Cruz RN) 0839 (Given - Provider: Ying Sow, JIMMIE) normal saline 0.9 % flush 3-10 mL 3-10 mL, Intravenous, 2 times daily, First dose (after last modification) on 08/03/22 at 2100, Until Discontinued 0838 (Given - Provider: Neelam Marcus RN)2019 (Given - Provider: Karley Cruz RN) 0839 (Given - Provider: Ying Sow RN)205 (Given - Provider: Karley Cruz RN) 1105 (Given - Provider: Neelam Marcus RN)2100 (Canceled Entry - Provider: Automatic Discharge Provider - Comment: Automatically canceled at discontinue of medication order) pantoprazole EC (PROTONIX) tablet 40 mg 40 mg, Oral, Daily, First dose on Fri08/02/22 at 1315, Until Discontinued, Do not break, chew, or crush. 0836 (Given - Provider: Neelam Marcus RN) 0839 (Given - Provider: Ying Sow, RN) 1005 (Given - Provider: Orquidea Hernandez V, Nurse Student) potassium chloride (KLOR-CON) packet 2 packet (COMPLETED) 2 packet (40 mEq), Oral, Once, 1 dose, On Fri08/05/22 at 0945, Dissolve powder in 240 mL water 0948 (Given - Provider: Ying Sow, JIMMIE) potassium chloride CR (KLOR-CON M) tablet 40 mEq 40 mEq, Oral, Once, 1 dose, On Fri08/05/22 at 0730, Do not chew, crush, or suck on tablet. May break in half. May dissolve whole tablet in 120 mL of water and drink immediately. 0836 (Not Given - Provider: Neelam Marcus RN - Reason: Patient/family declined) PRN Medication Order 08/05/2022 08/06/2022 08/07/2022 acetaminophen (TYLENOL) suppository 650 mg(Linked Group 2) 650 mg, Rectal, Every 4 hours PRN, Fever, Temperature greater than 38.5 C (101.5 F), Starting on Fri07/29/22 at 2144, Until Fri08/07/22 at 2308, Maximum dose of acetaminophen is 4000 mg from all sources in 24 hours. acetaminophen (TYLENOL) tablet 650 mg(Linked Group 2) 650 mg, Oral, Every 4 hours PRN, Fever, Temperature greater than 38.5 C (101.5 F), Starting on Fri07/29/22 at 2144, Until Fri08/07/22 at 2308, Maximum dose of acetaminophen is 4000 mg from all sources in 24 hours. albuterol sulfate HFA 108 (90 Base) MCG/ACT inhaler 2 puff 2 puff, Inhalation, Every 6 hours PRN, Shortness of breath, Starting on Fri07/31/22 at 1021, Until Fri08/07/22 at 2308 hydrALAZINE (APRESOLINE) injection 20 mg 20 mg, Intravenous, Every 6 hours PRN, Other, systolic >160, Starting on Fri07/29/22 at 2139, Until Fri08/07/22 at 2308, Monitor HR and BP before dose and 15 min after IV dose. For IV push give over 1-2 minutes=5mg/min. normal saline 0.9 % flush 3-10 mL 3-10 mL, Intravenous, As needed, Line care, Starting on Fri07/29/22 at 2140, Until Fri08/07/22 at 2308 ondansetron (ZOFRAN) injection 4 mg 4 mg, Intravenous, Every 8 hours PRN, Nausea, Vomiting, Starting on Fri07/31/22 at 2348, Until Fri08/07/22 at 2308, IV push over 2-5 minutes. perflutren lipid microsphere (DEFINITY) injection 2 mL 2 mL, Intravenous, IMG once as needed, Contrast, 1 dose, Starting on Fri07/30/22 at 1045, Until Fri08/07/22 at 2308, Administer over 30-60 seconds. Follow with 10 mL saline flush. polyethylene glycol (GLYCOLAX) packet 17 g 17 g, Oral, Daily as needed, Constipation, Starting on Fri07/31/22 at 2348, Until Fri08/07/22 at 2308, If more than one agent is ordered as needed for constipation, use in this order: docusate, polyethylene glycol, senna, bisacodyl tablet, milk of magnesia, bisacodyl suppository. If constipation is not resolved, move to the next ordered medication at next dosing interval. Linked Groups Order Group 1: enoxaparin (LOVENOX) 40 MG/0.4ML syringe 40 mgJump to med 40 mg, Subcutaneous, Every 12 hours scheduled (2 times per day), First dose on Fri07/29/22 at 2200, Until Discontinued, Administer by deep SubQ injection alternating between the left or right anterolateral and left or right posterolateral abdominal wall. And Place sequential compression device (COMPLETED) Routine, Once, On Fri07/29/22 at 2144, For 1 occurrence And Intermittent Pneumatic Compression Device Applied (COMPLETED) And Assess Sequential Compression Device (Assess skin at a minimum of every shift) (CANCELED) Routine, Every shift, First occurrence on Fri07/29/22 at 2144 And Maintain Sequential Compression Device (COMPLETED) Routine, Daily, First occurrence on Fri07/30/22 at 0600 And HIGH RISK FOR VTE (COMPLETED) Group 2: acetaminophen (TYLENOL) tablet 650 mgJump to med 650 mg, Oral, Every 4 hours PRN, Fever, Temperature greater than 38.5 C (101.5 F), Starting on 07/29/22 at 2144, Until Fri08/07/22 at 2308, Maximum dose of acetaminophen is 4000 mg from all sources in 24 hours. Or acetaminophen (TYLENOL) suppository 650 mgJump to med 650 mg, Rectal, Every 4 hours PRN, Fever, Temperature greater than 38.5 C (101.5 F), Starting on 07/29/22 at 2144, Until Fri08/07/22 at 2308, Maximum dose of acetaminophen is 4000 mg from all sources in 24 hours. documented in this encounter Additional Health Concerns Infection Onset Date Last Indicated Resolved Time COVID-19 Rule Out 07/29/2022 07/30/2022 07/30/2022 9:08 AM CDT MRSA Comment:07/29/22 Nares (RG) 07/30/22 +MRSA Right leg 03/03/23 +MRSA Right leg 07/30/2022 03/03/2023 documented as of this encounter Care Teams Power Distribution Engineer Relationship Specialty Start Date End Date None, Provider, PCP - General 07/29/22 documented as of this encounter
--- OUTSIDE RECORDS SUMMARY | 2024-11-17 03:06 | XMS_ITS | Encounter Summary ---
Author Organization [facility] Address [facility] [place] [address] [place] [address] Care Team Providers Care Rn Med Surg Name Role Phone None, Provider MD Primary Care Provider Unavaila ble Reason for Referral * Imaging (Emergency) - Closed Specialty Diagnoses / Procedures Referred By Jany t Referred To Contact RADIOLOGY Procedures CTA CHEST PE PROTOCOL [facility] [address] [place] [address] [place] [address] Phone: tel: fax: Referral ID Status Reason Start Date Expiration Date Visits Re quested Visits Authorized [id number] Closed 07/29/2022 07/29/2023 1 1 Reason for Visit * Reason Comments Cough Gi Problem Encounter Details Date Type Department Care Team (Late st Contact Info) Description 07/29/2022 12:49 PM CDT - 07/29/2022 7:54 PM CDT Emergency [facility] [address] [place] [address] [place] [address] Liat Ramirez MD [address] [place] [id number] Cough; Gi Problem Discharge Disposition: Transfer to Acute Care Hospital Social History Tobacco Use Types Packs/Day Years [...] Sign Reading Time Taken Comments Blood Pressure 153/109 07/29/2022 7:52 PM CDT Pulse 102 07/29/2022 7:52 PM CDT Temperature 36.2 ??C (97.1 ??F) 07/29/2022 12:52 PM C DT Respiratory Rate 33 07/29/2022 6:05 PM CDT Oxygen Saturation 94% 07/29/2022 6:05 PM CDT Inhaled Oxygen Concentration - - Weight 122.5 kg (270 lb) 07/29/2022 12:52 PM CDT Height 170.2 cm (5' 7 ) 07/29/2022 12:52 PM CDT Body Mass Index 42.29 07/29/2022 12:52 PM CDT documented in this encounter Medications at Time [...] 08/08/2022 2 documented as of this encounter ED Notes * Liat Ramirez MD - 07/29/2022 6:26 PM CDT Emergency Department Note Chief Complaint Chief Complaint Patient presents with ??? Cough ??? Gi Problem History of Present Illness 31-year-old female with history of diabetes presents now to the emergency room with 2 weeks of increasing cough and shortness of breath. She states also that she has had some nausea and diarrhea and vomiting as well. She does note she has been increasingly short of breath in the past several days. She has not had COVID-vaccine. She is uncertain whether she has had fevers or chills. Medical History ALLERGIES: No Known Allergies MEDICATIONS: Prior to Admission medications Not on File PAST MEDICAL HISTORY: Past Medical History: Diagnosis Date ??? Diabetes mellitus ([facility]) PAST SURGICAL HISTORY: History reviewed. No pertinent surgical history. FAMILY HISTORY: No family history on file. SOCIAL HISTORY: Social History Tobacco Use ??? Smoking status: Never Smoker ??? Smokeless tobacco: Never Used Substance Use Topics ??? Alcohol use: Not Currently ??? Drug use: Never Review of Systems Review of systems included in HPI, otherwise 10 systems are reviewed and negative. Physical Exam Filed Vitals: 07/29/22 1750 07/29/22 1755 07/29/22 1800 07/29/22 1805 BP: Pulse: 98 97 99 98 Resp: 28 30 (!) 32 (!) 33 Temp: TempSrc: SpO2: 95% 93% 92% 94% Weight: Height: Pulse oximetry on room air is 73% which is severely hypoxic. Physical Exam General-patient sitting up in the bed, tachypneic HEENT-pupils equal reactive, sclera anicteric, oral mucosa pink and moist Neck-supple, no meningismus Chest-rales and rhonchi bilaterally, tachypneic Cardiovascular-tachycardic with regular rhythm no murmurs rubs or gallops Abdomen-soft, nontender, nondistended, normal bowel sounds -deferred Extremities-+2-3 pitting edema bilateral legs capillary refills less than 2 seconds, full range of motion without pain Skin-warm, no pallor Neuro-5 out of 5 strength bilateral upper and lower extremities, no facial droop, clear speech Psychiatric-patient appears calm, no signs of anxiety or distress Diagnostic Studies / Procedures LABORATORY STUDIES: Results for orders placed or performed during the hospital encounter of 07/29/22 CBC W/DIFF AUTOMATED Result Value Ref Range WBC 12.8 (H) [...] METABOLIC PANEL Result Value Ref Range GLUCOSE 303 (H) [...] 55 (L) >90 ML/MIN/1.73 M2 TROPONIN, QUANT Result Value Ref Range TROPONIN I HIGH SENSITIVITY 22 0 - 54 ng/L D-DIMER, QUANTITATIVE Result Value Ref Range D-DIMER 658 (HH) 0 - 500 ng[FEU]/mL PRO-BRAIN NATRIURETIC PEPTIDE Result Value Ref Range PRO-BRAIN NATRIURETIC PEPTIDE 5,562 (H) 0 - 125 PG/ML Qualitative HCG Result Value Ref Range PREG SCREEN-SERUM NEGATIVE NEGATIVE LACTIC ACID - SINGLE Result Value Ref Range LACTIC ACID 1.1 0.5 - 2.0 MMOL/L BLOOD GAS, VENOUS Result Value Ref Range FIO2 36 % PH VENOUS 7.37 7.31 - 7.41 PC02 VENOUS 50.0 40.0 - 52.0 MMHG PO2 VENOUS 44.0 30.0 - 50.0 MM HG BICARB-VENOUS 28.4 (H) 22.0 - 27.0 MMOL/L BASE EXCESS,VENOUS 3.1 0.0 - 4.0 MMOL/L O2 SAT VENOUS 79 (H) 70.0 - 75.0 % POCT glucose Result Value Ref Range GLUCOSE POC 314 (H) 70 - 99 MG/DL CORONAVIRUS (COVID-19) RAPID ANTIGEN [IN HOUSE] Specimen: NASAL Result Value Ref Range CORONAVIRUS ANTIGEN IA NEGATIVE NEGATIVE Specimen Type NASAL FIRST TEST NO EMPLOYED IN HEALTHCARE YES SYMPTOMATIC DEFINED BY CDC YES HOSPITALIZATION STATUS YES RESIDENT OF [facility] NO UNKNOWN INFLUENZA A & B Specimen: NASAL Result Value Ref Range Specimen Type NASOPHARYNX INFLUENZA A NEGATIVE NEGATIVE INFLUENZA B NEGATIVE NEGATIVE IMAGING STUDIES CTA CHEST PE PROTOCOL Final Result by User, [id number] (07/29 1534) CTA CHEST WITH IV CONTRAST WITH SAGITTAL AND CORONAL RECONSTRUCTION 07/29/2022 HISTORY: Suspected pulmonary embolism. Elevated d-dimer. Elevated BNP of 5500. Peripheral edema. COMPARISON: 07/29/2022 chest x-ray. Contrast dose: 95 mL Isovue-370 IV. Automated exposure control with radiation dose reduction technique utilized. IMPRESSION: No pulmonary emboli identified in main pulmonary arteries or major pulmonary artery branches. No thoracic aortic aneurysm or dissection. Extensive diffuse infiltrates throughout the right lung and with more scattered, less dense infiltrate in the left lung. Findings discussed personally with Dr. Ramirez with diagnostic considerations to include pneumonia including Covid 19 pneumonia and congestive heart failure. Subcutaneous edema also felt to be present. 10 mm right paratracheal lymph node which may be reactive in nature. No mass lesions noted in visualized upper abdomen. Unremarkable osseous structures. Ordered By: LIAT RAMIREZ Interpreted By: Porter Bedoya, 07/29/2022 3:20 PM XR CHEST PORTABLE Final Result by User, [id number] (07/29 1350) IMAGING STUDIES: XR CHEST PORTABLE DATE: 07/29/2022 1:21 PM CLINICAL HISTORY: sob . Shortness of breath for one week COMPARISON: No Comparisons. IMPRESSION: 1. Significant bilateral alveolar opacities, greater on the right side. Please assess for atypical infectious process such as Covid 19. Other possibility is advanced CHF.. 2. Small bilateral pleural effusions. No pneumothorax.. 3. Moderate cardiomegaly. Echocardiogram may be of benefit.. Osseous structures intact. Ordered By: LIAT RAMIREZ Interpreted By: Remigio Duggan, 07/29/2022 1:47 PM ED Course / Medical Decision Making MDM 31-year-old female presents with severe hypoxia. I was concerned she may have COVID, that she may have CHF, that she may have community-acquired pneumonia. Chest x-ray shows diffuse patchy infiltrates consistent with COVID though cannot rule out CHF. Labs demonstrate BNP of 5500, the rest of her labs unremarkable. She is covered for pneumonia with vancomycin and Zosyn IV. She is placed initially on 4 L nasal cannula but after CTA of the chest is now requiring more oxygen, currently requiring 10L high flow. She also received small dose of Lasix, 40 mg IV. 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 Critical Care Addendum Note: Indication: Respiratory failure I provided a total of 45 minutes of critical care excluding separately billable procedures. The time was intermittent distributed over the ED course. This includes time in discussion with specialists, initial bedside evaluation, reviewing old records, review of testing done while under my care, discussion with the family, nurses and guiding the patient???s care while in the emergency department. Approximate time distribution: 15 minutes - Initial evaluation, d/w involved parties, attempting to gather old records 10 minutes - Documenting medical record 5 minutes - Review of results (EKGs, labs, imaging) 10 minutes - Serial repeat bedside evaluation 5 minutes - Discussing case with multiple providers EKG shows sinus tachycardia rate of 108, no acute ST segment elevation or acute T wave inversions. Medications vancomycin (VANCOCIN) 2,000 mg in sodium chloride 0.9 % 500 mL IVPB (2,000 mg Intravenous New Bag 07/29/22 1713) furosemide (LASIX) injection 40 mg (40 mg Intravenous Given 07/29/22 1525) iopamidol (ISOVUE-370) 76 % injection 95 mL (95 mLs Intravenous Given 07/29/22 1511) labetalol (TRANDATE) injection 10 mg (10 mg Intravenous Given 07/29/22 1642) piperacillin-tazobactam (ZOSYN) 3.375 g in sodium chloride 0.9 % 50 mL IVPB (0 g Intravenous Infusion Stop Time 07/29/22 1745) Clinical Impression Pneumonia due to COVID-19 virus (Primary) CHF (congestive heart failure) ([facility]) Respiratory failure ([facility]) There are no discharge medications for this patient. Disposition: Transfer to Another Facility Follow-Up: No follow-up provider specified. 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, no otc medications for s/s documented in this encounter Plan of Treatment Not on file documented as of this encounter Procedures Procedure Name Priority Date/Time Associated Diagnosis Comments CTA CHEST PE PROTOCOL STAT 07/29/2022 3:19 PM CDT BLOOD GAS, VENOUS STAT 07/29/2022 2:2 0 PM CDT LACTIC ACID STAT 07/29/2022 2:20 PM CDT CULTURE, BACTERIA, BLOOD STAT 07/29/2022 1:50 PM CDT CULTURE, BACTERIA, BLOOD STAT 07/29/2022 1:50 PM CDT XR CHEST PORTABLE STAT 07/29/2022 1:3 3 PM CDT ECG 12-LEAD Routine 07/29/2022 1:33 PM CDT POCT GLUCOSE - MEJIA DOCKED DEVICE Routine 07/29/2022 1:29 PM CDT CORONAVIRUS (COVID-19) ANTIGEN DIRECT OPTICAL STAT 07/29/2022 1:25 PM CDT PRO-BRAIN NATRIURETIC PEPTIDE STAT 07/29/2022 1:25 PM CDT INFLUENZA A & B STAT 07/29/2022 1:25 PM CDT COMPREHENSIVE METABOLIC PANEL STAT 07/29/2022 1:25 PM CDT D-DIMER, QUANTITATIVE STAT 07/29/2022 1:25 PM CDT CHORIONIC GONADOTROPIN HCG QL STAT 07/29/2022 1:25 PM CDT CBC W/DIFF AUTOMATED STAT 07/29/2022 1:25 PM CDT TROPONIN, QUANT STAT 07/29/2022 1:25 PM CDT documented in this encounter Results * CTA CHEST PE PROTOCOL (07/29/2022 3:19 PM CDT) Anatomical Region Laterality Modality Chest Computed Tomogra phy 07/29/2022 3:20 PM CDT Impressions 07/29/2022 3:33 PM CDT IMPRESSION: No pulmonary emboli identified in main pulmonary arteries or major pulmonary artery branches. No thoracic aortic aneurysm or dissection. Extensive diffuse infiltrates throughout the right lung and with more scattered, less dense infiltrate in the left lung. Findings discussed personally with Dr. Ramirez with diagnostic considerations to include pneumonia including Covid 19 pneumonia and congestive heart failure. Subcutaneous edema also felt to be present. 10 mm right paratracheal lymph node which may be reactive in nature. No mass lesions noted in visualized upper abdomen. Unremarkable osseous structures. Ordered By: LIAT RAMIREZ Interpreted By: Porter Bedoya, 07/29/2022 3:20 PM Narrative 07/29/2022 3:33 PM CDT CTA CHEST WITH IV CONTRAST WITH SAGITTAL AND CORONAL RECONSTRUCTION 07/29/2022 HISTORY: Suspected pulmonary embolism. Elevated d-dimer. Elevated BNP of 5500. Peripheral edema. COMPARISON: 07/29/2022 chest x-ray. Contrast dose: 95 mL Isovue-370 IV. Automated exposure control with radiation dose reduction technique utilized. Procedure Note Porter Bedoya MD - 07/29/2022 CTA CHEST WITH IV CONTRAST WITH SAGITTAL AND CORONAL RECONSTRUCTION07/29/2022 HISTORY: Suspected pulmonary embolism. Elevated d-dimer. Elevated BNP eq1599. Peripheral edema. COMPARISON: 07/29/2022 chest x-ray. Contrast dose: 95 mL Isovue-370 IV. Automated exposure control with radiation dose reduction techniqueutilized. IMPRESSION: No pulmonary emboli identified in main pulmonary arteries ormajor pulmonary artery branches. No thoracic aortic aneurysm ordissection. Extensive diffuse infiltrates throughout the right lung and with morescattered, less dense infiltrate in the left lung. Findings discussedpersonally with Dr. Ramirez with diagnostic considerations to includepneumonia including Covid 19 pneumonia and congestive heart failure.Subcutaneous edema also felt to be present. 10 mm right paratracheal lymph node which may be reactive in nature. Nomass lesions noted in visualized upper abdomen. Unremarkable osseousstructures. Ordered By: LIAT RAMIREZ Interpreted By: Porter Bedoya, 07/29/2022 3:20 PM Liat Ramirez MD CT Final Result * (ABNORMAL) BLOOD GAS, VENOUS (07/29/2022 2:20 PM CDT) FIO2 36 % 07/29/2022 2:31 PM CDT [facility] PH VENOUS 7.37 7.31 - 7.41 07/29/2022 2:31 PM CDT [facility] PCO2 VENOUS 50.0 40.0 - 52.0 MMHG 07/29/2022 2:31 PM CDT [facility] PO2 VENOUS 44.0 30.0 - 50.0 MM HG 07/29/2022 2:31 PM CDT [facility] BICARB VENOUS 28.4(H) 22.0 - 27.0 MMOL/L 07/29/2022 2:31 PM CDT [facility] BASE EXCESS VENOUS 3.1 0.0 - 4.0 MMOL/L 07/29/2022 2:31 PM CDT [facility] O2 SAT VENOUS 79(H) 70.0 - 75.0 % 07/29/2022 2:31 PM CDT [facility] 07/29/2022 2:20 PM CDT Liat Ramirez MD LABORATORY Final Result Performing Organization Address City/[facility]/ZIP Co de Phone Number [facility] [address] [place] [address], * LACTIC ACID - SINGLE (07/29/2022 2:20 PM CDT) LACTIC ACID VENOUS 1.1 0.5 - 2.0 MMOL/L 07/29/2022 2:46 PM CDT [facility] 07/29/2022 2:20 PM CDT Liat Ramirez MD LABORATORY Final Result Performing Organization Address [facility] Co de Phone Number [facility] [address] [place] [address], [place] * CULTURE, BACTERIA, BLOOD (07/29/2022 1:50 PM CDT) SPEC DESCRIPTION BLOOD 07/29/2022 4:05 PM CDT [facility] SPECIAL REQUESTS NO SPECIAL REQUEST 07/29/2022 4:05 PM CDT [facility] CULTURE RESULT NO GROWTH 5 DAYS 08/03/2022 8:45 AM CDT [facility] BLOOD SPECIMEN OBTAINED FOR BLOOD CULTURE / Unknown 07/29/2022 1:50 PM CDT 07/29/2022 5:28 PM CDT Liat Ramirez MD MICROBIOLOGY - GENERAL ORDERAB LES Final Result Performing Organization Address City/[facility]/ZIP Co de Phone Number [facility] [address] [place] [address], [facility] [address] [place] [address], [place] * CULTURE, BACTERIA, BLOOD (07/29/2022 1:50 PM CDT) SPEC DESCRIPTION BLOOD 07/29/2022 4:05 PM CDT [facility] SPECIAL REQUESTS NO SPECIAL REQUEST 07/29/2022 4:05 PM CDT [facility] CULTURE RESULT NO GROWTH 5 DAYS 08/03/2022 8:45 AM CDT [facility] BLOOD SPECIMEN OBTAINED FOR BLOOD CULTURE / Unknown 07/29/2022 1:50 PM CDT 07/29/2022 5:28 PM CDT us Liat Ramirez MD MICROBIOLOGY - GENERAL ORDERAB LES Final Result [facility] [address] [place] [address], [facility] [address] [place] [address], [place] * XR CHEST PORTABLE (07/29/2022 1:33 PM CDT) Anatomical Region Laterality Modality Chest Computed Tomogra phy 07/29/2022 1:47 PM CDT Impressions 07/29/2022 1:49 PM CDT IMPRESSION: 1. ??Significant bilateral alveolar opacities, greater on the right side. Please assess for atypical infectious process such as Covid 19. Other possibility is advanced CHF.. 2. ??Small bilateral pleural effusions. No pneumothorax.. 3. ??Moderate cardiomegaly. Echocardiogram may be of benefit.. Osseous structures intact. Ordered By: LIAT RAMIREZ Interpreted By: Remigio Duggan, 07/29/2022 1:47 PM Narrative 07/29/2022 1:49 PM CDT IMAGING STUDIES: XR CHEST PORTABLE ? DATE: 07/29/2022 1:21 PM CLINICAL HISTORY: sob ?? . ??Shortness of breath for one week COMPARISON: No Comparisons. Procedure Note Adam Duggan MD - 07/29/2022 IMAGING STUDIES: XR CHEST PORTABLE DATE: 07/29/2022 1:21 PM CLINICAL HISTORY: sob . Shortness of breath for one week COMPARISON: No Comparisons. IMPRESSION: 1. Significant bilateral alveolar opacities, greater on the right side.Please assess for atypical infectious process such as Covid 19. Otherpossibility is advanced CHF.. 2. Small bilateral pleural effusions. No pneumothorax.. 3. Moderate cardiomegaly. Echocardiogram may be of benefit.. Osseousstructures intact. Ordered By: LIAT RAMIREZ Interpreted By: Remigio Duggan, 07/29/2022 1:47 PM us Lait Ramirez MD GENERAL IMAGING Final Result * ECG 12 lead (07/29/2022 1:33 PM CDT) 07/29/2022 1:33 PM CDT Narrative [facility] - 07/30/2022 8:35 AM CDT ? HFG ? Test Date: ?2022-07-29 Pat Name: ? GAY MATA ? Department: ?? 100 ? Room: ? ED3 Gender: ? 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 : ?1990 ? Requested By: LIAT Mccray Number: [id number] ? Reading MD: ?? Graeme Jhaveri ? Measurements Intervals ?Wesley ? Rate: ? 108 ?P: ?56 MA: ? 156 ?QRS: ?-24 QRSD: ? 87 ? T: ?51 QT: ? 345 ? QTc: ?464 ? 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: : 1990 Requested By: LIAT RAMIREZ Order Number: [id number] Reading MD: Graeme Jhaveri Measurements Intervals Wesley Rate: 108 P: 56 MA: 156 QRS: -24 QRSD: 87 T: 51 QT: 345 QTc: 464 Interpretive Statements SINUS TACHYCARDIA POSSIBLE LEFT ATRIAL ENLARGEMENT [-0.1mV P WAVE IN V1/V2] BORDERLINE LEFT AXIS DEVIATION [QRS AXIS < -20] NONSPECIFIC T-WAVE ABNORMALITY ABNORMAL RHYTHM ECG WARNING: DATA QUALITY MAY AFFECT INTERPRETATION Liat Ramirez MD ECG ORDERABLES Final Result Performing Organization Address [facility] [place] [address] * (ABNORMAL) POCT glucose (07/29/2022 1:29 PM CDT) [facility] GLUCOSE POC 314(H) 70 - 99 MG/DL 07/29/2022 1:36 PM CDT [facility] 07/29/2022 1:29 PM CDT Liat Ramirez MD POCT ORDERABLES - DEVICE Final Result Performing Organization Address [facility] de Phone Number [address] * INFLUENZA A & B (07/29/2022 1:25 PM CDT) [facility] SPECIMEN TYPE NASOPHARYNX 07/29/2022 1:40 PM CDT [facility] INFLUENZA A NEGATIVE NEGATIVE 07/29/2022 2:06 PM CDT [facility] INFLUENZA B NEGATIVE NEGATIVE 07/29/2022 2:06 PM CDT [facility] NASAL STRUCTURE / Unknown 07/29/2022 1:25 PM CDT Liat Ramirez MD MICROBIOLOGY - GENERAL ORDERAB LES Final Result [facility] [address] [place] [address], * CORONAVIRUS (COVID-19) RAPID ANTIGEN [IN HOUSE] (07/29/2022 1:25 PM CDT) CORONAVIRUS ANTIGEN IA NEGATIVE NEGATIVE 07/29/2022 2:06 PM CDT [facility] Comment: NEGATIVE RESULTS DO NOT RULE [...] USE BY AUTHORIZED LABORATORIES. SPECIMEN TYPE NASAL 07/29/2022 1:40 PM CDT [facility] FIRST TEST NO 07/29/2022 1:40 PM CDT [facility] EMPLOYED IN HEALTHCARE YES 07/29/2022 1:40 PM CDT [facility] SYMPTOMATIC DEFINED BY CDC YES 07/29/2022 1:40 PM CDT [facility] HOSPITALIZATION STATUS YES 07/29/2022 1:40 PM CDT [facility] RESIDENT OF [facility] CARE NO 07/29/2022 1:40 PM CDT [facility] UNKNOWN 07/29/2022 1:40 PM CDT [facility] NASAL NASAL STRUCTURE / Unknown 07/29/2022 1:25 PM CDT Liat Ramirez MD MICROBIOLOGY - GENERAL ORDERAB LES Final Result [facility] [address] [place] [address], [place] * Qualitative HCG (07/29/2022 1:25 PM CDT) Pathologist [facility] PREG SCREEN-SERUM NEGATIVE NEGATIVE 07/29/2022 2:03 PM CDT [facility] 07/29/2022 1:25 PM CDT Liat Ramirez MD LABORATORY Final Result Performing Organization Address [facility] Co de Phone Number [facility] [address] [place] [address], [place] * (ABNORMAL) PRO-BRAIN NATRIURETIC PEPTIDE (07/29/2022 1:25 PM CDT) [facility] PRO-BRAIN NATRIURETIC PEPTIDE 5,562(H) 0 - 125 PG/ML 07/29/2022 2:16 PM CDT [facility] Comment: CUT POINTS ESTABLISHED BY [employer]NATIONAL [employer] ON NT PROBNP (ICON) STUDY (2006). AGE INDEPENDENT: <300 PG/ML HAS A 99% NEGATIVE PREDICTIVE VALUE FOR EXCLUDING ACUTE CHF <50 YEARS: >450 PG/ML IS CONSISTENT WITH ACUTE CHF 50-75 YEARS: >900 PG/ML IS CONSISTENT WITH ACUTE CHF >75 YEARS: >1800 PG/ML IS CONSISTENT WITH ACUTE CHF IN PATIENTS WITH RENAL INSUFFICIENCY (GFR <60), >1200 PG/ML YIELDS A DIAGNOSTIC SENSITIVITY AND SPECIFICITY OF 89% AND 72% FOR ACUTE CHF. 07/29/2022 1:25 PM CDT Liat Ramirez MD LABORATORY Final Result Performing Organization Address [facility] Co de Phone Number [facility] [address] [place] [address], [place] * (ABNORMAL) D-DIMER, QUANTITATIVE (07/29/2022 1:25 PM CDT) [facility] D-DIMER 658(HH) 0 - 500 ng{FEU}/mL 07/29/2022 2:34 PM CDT [facility] Comment: CRITICAL VALUE CALLED RESULT READ BACK AND VERIFIED HF [id number] [facility] D-Dimer values less than or equal to 500 ng/mL FEU have a negative predictive value of >95% for exclusion of deep vein thrombosis and pulmonary embolism. In patients over 50 (who tend to have higher normal baseline D-Dimer values), recent studies suggest age-adjusted D-Dimer cutoff values (calculated as: age [years] x 10 ng/mL) result in equivalent outcomes and no additional false negative findings. 07/29/2022 1:25 PM CDT Liat Ramirez MD LABORATORY Final Result Performing Organization Address [facility] Co de Phone Number [address] [place] [address], [place] * TROPONIN, QUANT (07/29/2022 1:25 PM CDT) [facility] TROPONIN I HIGH SENSITIVITY 22 0 - 54 ng/L 07/29/2022 2:09 PM CDT [facility] Comment: HIGH DOSES OF BIOTIN, TROPONIN-SPECIFIC AUTOANTIBODIES, AND ANTIBODY THERAPY CONTAINING HAMA MAY INTERFERE WITH THIS TEST RESULT. CORRELATION TO CLINICAL HISTORY AND PRESENTATION RECOMMENDED. 07/29/2022 1:25 PM CDT Liat Ramirez MD LABORATORY Final Result Performing Organization Address [facility] Phone Number [address] [place] [address], [place] * (ABNORMAL) COMPREHENSIVE METABOLIC PANEL (07/29/2022 1:25 PM CDT) [facility] GLUCOSE 303(H) 70 - 99 MG/DL 07/29/2022 2:16 PM CDT [facility] BUN 12 7 - 18 MG/DL 07/29/2022 2:16 PM CDT [facility] CREATININE S/P/B 1.34(H) 0.50 - 1.20 MG/DL 07/29/2022 2:16 PM CDT [facility] SODIUM S/P/B 136 136 - 145 MMOL/L 07/29/2022 2:16 PM CDT [facility] POTASSIUM S/P/B 3.7 3.5 - 5.1 MMOL/L 07/29/2022 2:16 PM CDT [facility] CHLORIDE S/P/B 105 100 - 108 MMOL/L 07/29/2022 2:16 PM CDT [facility] CO2 26.6 21.0 - 32.0 MMOL/L 07/29/2022 2:16 PM CDT [facility] CALCIUM S/P/B 8.6 8.5 - 10.1 MG/DL 07/29/2022 2:16 PM CDT [facility] BILIRUBIN TOTAL S/P/B 0.4 0.2 - 1.2 MG/DL 07/29/2022 2:16 PM CDT [facility] Comment: THIS ASSAY IS NOT RECOMMENDED FOR PATIENTS UNDERGOING TREATMENT WITH ELTROMBOPAG DUE TO THE POTENTIAL FOR FALSELY ELEVATED RESULTS. TOTAL PROTEIN S/P/B 5.9(L) 6.4 - 8.2 G/DL 07/29/2022 2:16 PM CDT [facility] ALBUMIN S/P/B 1.9(L) 3.4 - 5.0 G/DL 07/29/2022 2:16 PM CDT [facility] AST 22 15 - 37 U/L 07/29/2022 2:16 PM CDT [facility] ALT 21 14 - 55 U/L 07/29/2022 2:16 PM CDT [facility] ALKALINE PHOSPHATASE S/P/B 97 50 - 136 U/L 07/29/2022 2:16 PM CDT [facility] ANION GAP 4.4(L) 5.0 - 15.0 MMOL/L 07/29/2022 2:16 PM CDT [facility] BUN CREATININE RATIO 9.0 6 - 07/29/2022 2:16 PM CDT [facility] A/G RATIO 0.5(L) 1.0 - 2.5 RATIO 07/29/2022 2:16 PM CDT [facility] GFR ESTIMATE 55(L) >90 ML/MIN/1.7 3 M2 07/29/2022 2:16 PM CDT [facility] Comment: NOTE: eGFR is not calculated for patients <18 years of age. This is an estimated GFR calculation using the new CKD EPI creatinine equation without race and so does not require a correction factor for race. This estimated GFR should not be used for calculating drug doses. 07/29/2022 1:25 PM CDT us Liat Ramirez MD LABORATORY Final Result [facility] [address] [place] [address], * (ABNORMAL) CBC W/DIFF AUTOMATED (07/29/2022 1:25 PM CDT) WBC 12.8(H) 4.5 - 11.0 x10'3/uL 07/29/2022 1:43 PM CDT [facility] RBC 4.24 4.0 - 5.2 x10'6/uL 07/29/2022 1:43 PM CDT [facility] HGB 11.8(L) 12.0 - 16.0 G/DL 07/29/2022 1:43 PM CDT [facility] HCT 37.7 36.0 - 46.0 % 07/29/2022 1:43 PM CDT [facility] MCV 88.9 80.0 - 100.0 FL 07/29/2022 1:43 PM CDT [facility] MCH 27.8 26.0 - 34.0 PG 07/29/2022 1:43 PM CDT [facility] MCHC 31.3 31.0 - 37.0 G/DL 07/29/2022 1:43 PM CDT [facility] RDW 14.0 11.6 - 14.8 % 07/29/2022 1:43 PM CDT [facility] PLT 423(H) 140 - 415 x10'3/uL 07/29/2022 1:43 PM CDT [facility] MPV 10.7 7.0 - 12.0 FL 07/29/2022 1:43 PM CDT [facility] CBC COMMENT AUTOMATED RBC MORPHOLOGY AND PLATELET EVALUATION NORMAL 07/29/2022 1:43 PM CDT [facility] NEUTROPHILS % 81.7(H) 40.0 - 74.0 % 07/29/2022 1:43 PM CDT [facility] LYMPHOCYTES % 8.1(L) 14.0 - 46.0 % 07/29/2022 1:43 PM CDT [facility] MONOCYTES % 9.7 4.0 - 13.0 % 07/29/2022 1:43 PM CDT [facility] EOSINOPHILS 0.2 0.0 - 7.0 % 07/29/2022 1:43 PM CDT [facility] BASOPHILS 0.1 0.0 - 3.0 % 07/29/2022 1:43 PM CDT [facility] IMMATURE GRANS % 0.2 0.0 - 0.43 % 07/29/2022 1:43 PM CDT [facility] ABS. NEUTROPHILS TOTAL 10.42(H) 1.69 - 7.81 x10'3/uL 07/29/2022 1:43 PM CDT [facility] ABS. LYMPHOCYTES 1.04 0.21 - 5.42 x10'3/uL 07/29/2022 1:43 PM CDT [facility] ABS. MONOCYTES 1.24 0.04 - 1.37 x10'3/uL 07/29/2022 1:43 PM CDT [facility] ABS. EOSINOPHILS 0.03 0.00 - 0.68 x10'3/uL 07/29/2022 1:43 PM CDT [facility] ABS. BASOPHILS 0.01 0.00 - 0.08 x10'3/uL 07/29/2022 1:43 PM CDT [facility] ABS. IMMATURE GRANULOCYTES 0.03 0.00 - 0.06 x10'3/uL 07/29/2022 1:43 PM CDT [facility] 07/29/2022 1:25 PM CDT us Liat Ramirez MD LABORATORY Final Result [facility] [address] [place] [address], documented in this encounter Visit Diagnoses Diagnosis Pneumonia due to COVID-19 virus- Primary CHF (congestive heart failure) ([facility]) Congestive heart failure, unspecified Respiratory failure ([facility]) Acute respiratory failure documented in this encounter Administered Medications Inactive Administered Medications - up to 3 most recent administrations Medication Order MAR Action Action Date Dose Rate Site furosemide (LASIX) injection 40 mg 40 mg, Intravenous, Once, 1 dose, On Fri07/29/22 at 1500, Administer IV push 20-40mg/min. Given 07/29/2022 3:25 PM CDT 40 mg iopamidol (ISOVUE-370) 76 % injection 95 mL 95 mL, Intravenous, IMG once as needed, Contrast, 1 dose, Starting on Fri07/29/22 at 1508, Until Fri07/29/22 at 1511 Given 07/29/2022 3:11 PM CDT 95 mLs Left Arm labetalol (TRANDATE) injection 10 mg 10 mg, Intravenous, Once, 1 dose, On Fri07/29/22 at 1615, Bolus may be administered by IV push at a rate of 10 mg/min. Monitor HR and BP prior to admin, 15 and 30 minutes post administration. Do not give if SBP <100mm or HR <55. Patient to stay supine during and for 30 minutes after IV administration due to potential for orthostatic hypotension. Given 07/29/2022 4:42 PM CDT 10 mg labetalol (TRANDATE) injection 10 mg 10 mg, Intravenous, Once, 1 dose, On Fri07/29/22 at 2000, Bolus may be administered by IV push at a rate of 10 mg/min. Monitor HR and BP prior to admin, 15 and 30 minutes post administration. Do not give if SBP <100mm or HR <55. Patient to stay supine during and for 30 minutes after IV administration due to potential for orthostatic hypotension. Given 07/29/2022 7:52 PM CDT 10 mg piperacillin-tazobactam (ZOSYN) 3.375 g in sodium chloride 0.9 % 50 mL IVPB 3.375 g, Intravenous, Administer over 30 Minutes, Once, 1 dose, On Fri07/29/22 at 1615 New Bag 07/29/2022 5:12 PM CDT 3.375 g 100 mL/hr vancomycin (VANCOCIN) 2,000 mg in sodium chloride 0.9 % 500 mL IVPB 2,000 mg, Intravenous, at 260 mL/hr, Once, 1 dose, On Fri07/29/22 at 1630, Per P&T approved Vancomycin Protocol New Bag 07/29/2022 5:13 PM CDT 2,000 mg 260 mL/hr documented in this encounter Active and Recently Administered Medications Times are shown in CDT. Scheduled Medication Order 07/27/2022 07/28/2022 07/29/2022 furosemide (LASIX) injection 40 mg (COMPLETED) 40 mg, Intravenous, Once, 1 dose, On Fri07/29/22 at 1500, Administer IV push 20-40mg/min. 1525 (Given - Provid er: Bri Elam RN) labetalol (TRANDATE) injection 10 mg (COMPLETED) 10 mg, Intravenous, Once, 1 dose, On Fri07/29/22 at 1615, Bolus may be administered by IV push at a rate of 10 mg/min. Monitor HR and BP prior to admin, 15 and 30 minutes post administration. Do not give if SBP <100mm or HR <55. Patient to stay supine during and for 30 minutes after IV administration due to potential for orthostatic hypotension. 1642 (Given - Provid er: Bri Elam RN) labetalol (TRANDATE) injection 10 mg (COMPLETED) 10 mg, Intravenous, Once, 1 dose, On Fri07/29/22 at 2000, Bolus may be administered by IV push at a rate of 10 mg/min. Monitor HR and BP prior to admin, 15 and 30 minutes post administration. Do not give if SBP <100mm or HR <55. Patient to stay supine during and for 30 minutes after IV administration due to potential for orthostatic hypotension. 1951 (Given - Provid er: Bri Elam RN) piperacillin-tazobactam (ZOSYN) 3.375 g in sodium chloride 0.9 % 50 mL IVPB (COMPLETED) 3.375 g, Intravenous, Administer over 30 Minutes, Once, 1 dose, On Fri07/29/22 at 1615 1712 (New Bag - Prov ider: Bri Elam RN)1745 (Infusion Stop Time - Provider: Bri Elam RN) vancomycin (VANCOCIN) 2,000 mg in sodium chloride 0.9 % 500 mL IVPB (COMPLETED) 2,000 mg, Intravenous, at 260 mL/hr, Once, 1 dose, On Fri07/29/22 at 1630, Per P&T approved Vancomycin Protocol 171 (New Bag - Prov ider: Bri Elam RN)194 (Infusion Stop Time - Provider: Bri Elam RN) PRN Medication Order 07/27/2022 07/28/2022 07/29/2022 iopamidol (ISOVUE-370) 76 % injection 95 mL (COMPLETED) 95 mL, Intravenous, IMG once as needed, Contrast, 1 dose, Starting on Fri07/29/22 at 1508, Until Fri07/29/22 at 1511 1511 (Given - Provid er: Harpreet Tucker) documented in this encounter Additional Health Concerns Infection Onset Date Last Indicated Resolved Time COVID-19 Rule Out 07/29/2022 07/29/2022 07/29/2022 2:06 PM CDT documented as of this encounter Care Teams Rn Med Surg Relationship Specialty Start Date End Date None, Provider, PCP - General 07/29/22 documented as of this encounter
--- OUTSIDE RECORDS SUMMARY | 2024-11-17 03:10 | XMS_ITS | Encounter Summary ---
Author Organization [facility] Address [address] [place] [address] Phone Care Team Providers Care Creative Writing Teacher Name Role Phone Cherise Patrick Primary Care Provider [phone] Reason for Visit * Reason Onset Date Comments return call 11/08/2024 Encounter Details Date Type Department Care Team (Late st Contact Info) Description 11/08/2024 Telephone [facility] Ophthalmology [address] [facility] [address] [place] [address] Bita Vega MD [address] [place], [place] [id number] return call Social History Tobacco Use Types Packs/Day Years Used Date Smoking Tobacco: Never Smokeless Tobacco: Never Social Connection and Isolation Panel [NHANES] A nswer Date Recorded In a typical week, how many times do you talk on the phone with family, friends, or neighbors? Never 04/16/2023 How often do you get together with friends or re latives? Never 04/16/2023 How often do you attend muslim or muslim serv ices? Never 04/16/2023 Do you belong to any clubs o r organizations such as muslim groups, unions, fraternal or athletic groups, or school groups? No 04/16/2023 How often do you attend meet ings of the clubs or organizations you belong to? Never 04/16/2023 Are you , , di vorced, , never , or living with a partner? Never 04/16/2023 Overall Financial Resource Strain (CARDIA) Answe r Date Recorded How hard is it for you to pa y for the very basics like food, housing, medical care, and heating? Not hard at all 04/16/2023 Hunger Vital Sign Answer Date Recorded Within the past 12 months, y ou worried that your food would run out before you got the money to buy more. Never true 04/16/20 23 Within the past 12 months, t he food you bought just didn't last and you didn't have money to get more. Never true 04/16/2023 PRAPARE - Transportation Answer Date Re corded In the past 12 months, has l ack of transportation kept you from medical appointments or from getting medications? No 04/03 In the past 12 months, has l ack of transportation kept you from meetings, work, or from getting things needed for daily living? No 04/16/2023 Housing Stability Vital Sign Answer Ibrahima e Recorded In the last 12 months, was t here a time when you were not able to pay the mortgage or rent on time? No 04/16/2023 Number of Places Lived in the Last Year Not on f ile 04/16/2023 In the last 12 months, was t here a time when you did not have a steady place to sleep or slept in a assisted (including now)? No 04/16/2023 Housing Stability Vital Sign Answer Ibrahima e Recorded In the last 12 months, was t here a time when you were not able to pay the mortgage or rent on time? No 04/16/2023 Number of Times Moved in the Last Year Not on fi le 04/16/2023 Homeless in the Last Year Not on file 2022 Personal Safety Answer Date Recorded Have you ever been in or are you currently in a harmful physical or emotional relationship or is someone making you feel afraid or unsafe? Denies 04/24/2023 Comments Unknown Sex and Gender Information Value Date Recorded Sex Assigned at Not on file Legal Sex Female 8:53 PM [employer] SERV[employer]IL PROC[employer]OR Gender Identity Not on file Sexual Orientation Not on file documented as of this encounter Miscellaneous Notes * Telephone Encounter - Arelis Faulkner - 11/08/2024 1:53 PM CST Pt's sister returned call to setup Sx. #[phone] [employer] MAIL PROCESSOR * Telephone Encounter - Lucille Swann - 11/08/2024 1:42 PM CST LVM FOR PT TO CALL BACK TO SCHEDULE SURGERY [employer] PROCESSOR documented in this encounter Plan of Treatment Upcoming Encounters Date Type Department Care Team (Latest Contact Info) Description 01/10/2025 10:30 AM CDT Hospital Encounter [facility] Operating [facility] [place] [address] Bita Vega MD [address] [place] [address] 01/10/2025 10:30 AM CDT - 01/10/2025 11:15 AM CDT Surgery [facility] Operating [facility] [address] [place] [id number] Bita Vega MD [address] [place] [address] EXTRACTION CATARACT - PHACOEMULSIFICATION AND LENS IMPLANT Scheduled Procedures Name Priority Associated Diagnoses Date/Ti me EXTRACTION CATARACT - PHACOEMULSIFICATION AND LENS IMPLANT 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
--- OUTSIDE RECORDS SUMMARY | 2024-11-17 03:10 | XMS_ITS | Referral Summary ---
Author Organization [facility] Address [address] [place] [address] Care Team Providers Care Windows Software Developer Name Role Phone Cherise Patrick Primary Care Provider [phone] Encounters Date Type Department Care Team Description 11/08/2024 Telephone [facility] Ophthalmology [address] [place] [address] [phone] Bita Vega MD return call 11/01/2024 1:20 PM PROFILING MACHINE OPERATOR Office Visit [facility] Ophthalmology [address] [place] [phone] Nancie Hoyos MD Traction detachment of both retinas (Primary Dx) 09/24/2024 2:40 PM PROFILING MACHINE OPERATOR Imaging Exam [facility] Ophthalmology [address] [place] [address] [phone] 09/24/2024 2:35 PM PROFILING MACHINE OPERATOR Imaging Exam [facility] Ophthalmology [address] [place] [address] [phone] 09/24/2024 12:20 PM PROFILING MACHINE OPERATOR Imaging Exam [facility] Ophthalmology [address] [place] [address] [phone] Cataract of both eyes, unspecified cataract type (Primary Dx) 09/24/2024 1:15 PM PROFILING MACHINE OPERATOR Office Visit [facility] Ophthalmology [address] [place] [address] [phone] Bita Vega MD 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); 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, associated with type 2 diabetes mellitus (HCC) 09/10/2024 Telephone [facility] Ophthalmology [address] [place] [address] Uriah Oh Scheduling Appointments from Last 3 Months Allergies No known active allergies Medications loperamide (IMODIUM) 2 mg capsule Take 1 capsule (2 mg total) by mouth 4 (four) times a day as needed for diarrhea 12 capsule 02/21/2023 Active potassium chloride ER 10 mEq CR tablet Take 2 tablet/capsul e (20 mEq total) by mouth daily Active furosemide (LASIX) 40 mg tablet Take 1 tablet (40 mg total) by mouth daily Active losartan (COZAAR) 25 mg tablet Take 1 tablet (25 mg total) by mouth daily Active carvediloL (COREG) 12.5 mg tablet Take 1 tablet (12.5 mg total) by mouth 2 (two) times a day with meals Active amLODIPine (NORVASC) 10 mg tablet Take 1 tablet (10 mg total) by mouth daily Active dulaglutide (TRULICITY) 0.75 mg/0.5 mL pen injector Inject 0.5 mL (0.75 mg total) under the skin every 7 days Active Active Problems Problem Noted Date Diagnosed Date 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 11/08/2024 Traction detachment of both retinas 11/01/2024 Assessment & Plan (11/01/2024 2:13 PM PROFILING MACHINE OPERATOR): With severe tractional retinal detachments in both eyes, in the right eye retina appears to have a near funnel appearance. In the left eye however there was disorganized contents, I am uncertain much can be done to improve the situation in this no light perception left eye. Regarding the right eye, she may benefit from scleral buckle, vitrectomy, membrane stripping, endolaser, gas versus silicone oil. The view to the retina is somewhat compromised due to the cataractous changes. She could have cataract surgery 1st, in the right eye, followed by vitrectomy surgery. Removing the cataract would aid in visualization to the retina. She understands the very guarded prognosis for vision in both eyes due to the severe retinal changes. Risks, benefits and alternatives for surgery include by not limited to infection, bleeding, damage to the eye, loss of vision, loss of the eye,deformity, diplopia, increased IOP, cataract, need for new refraction, RD, RT, gas injection, post op positioning, altitude precautions, silicone oil placement, need for additional surgery, inflammation to one or both eyes, no guarantees were made, and the guarded prognosis was discussed with the patient. Reviewed with them that is a teaching institution and that trainees, medical students, residents, fellows may be involved in their care and may be preforming parts of the procedure, however an attending doctor would be present to assure everything went as well as possible.They understand and wish to proceed. Plan: CE/IOL with Dr Vega, when stable post op from cataract surgery will consider SB/PPV/MS/Laser/gas vs patria oil - Right eye. ESRD (end stage renal disease) on dialysis 06/14 Assessment & Plan (06/14/2024 2:44 PM CDT): Due to patient's overall clinic picture, any further surgical procedure intervention would be deemed high risk. Patient is not a candidate for any type of access creation at this time. We will continue utilizing Perma catheter for dialysis. Follow up in the office on as needed basis Acute diastolic congestive heart failure (CMS/HC C) 04/15/2023 Type II diabetes mellitus with foot ulcer 2022 Hypertension 04/15/2023 Acute respiratory failure with hypoxia (CMS/HCC) 04/15/2023 Diarrhea 04/15/2023 Acute kidney failure 04/15/2023 Elevated troponin 04/15/2023 Osteomyelitis 04/15/2023 Wounds, multiple 04/15/2023 Rectal bleed 04/15/2023 Resolved Problems Problem Noted Date Diagnosed Date Resolved Date Shortness of breath 04/15/2023 04/15/20 23 Social History Tobacco Use Types Packs/Day Years Used Date Smoking Tobacco: Never Smokeless Tobacco: Never Tobacco Cessation:Counseling Given: Not Answered Social Connection and Isolation Panel [NHANES] A nswer Date Recorded In a typical week, how many times do you talk on the phone with family, friends, or neighbors? Never 04/16/2023 How often do you get together with friends or re latives? Never 04/16/2023 How often do you attend methodist or quaker serv ices? Never 04/16/2023 Do you belong to any clubs o r organizations such as methodist groups, unions, fraternal or athletic groups, or [...] slept in a usp (including now)? No 04/16/2023 Housing Stability Vital [...] on file Legal Sex Female 8:53 PM PROFILING MACHINE OPERATOR Gender Identity Not on file Sexual Orientation Not on file Last Filed Vital Signs Vital Sign Reading Time Taken Comments Blood Pressure 177/99 06/14/2024 10:22 AM CDT Pulse 87 06/14/2024 10:22 AM CDT Temperature 36.7 ??C (98.1 ??F) 06/14/2024 10:22 AM C DT Respiratory Rate 04/26/2023 3:00 AM CDT Oxygen Saturation 96% 06/14/2024 10:22 AM CDT Inhaled Oxygen Concentration - - Weight 161.9 kg (357 lb) 04/21/2023 6:07 AM CDT Height 170.2 cm (5' 7 ) 06/14/2024 10:22 AM CDT Body Mass Index 55.91 04/15/2023 7:50 PM CDT Plan of Treatment Upcoming Encounters Date Type Department Care Team (Latest Contact Info) Description 01/10/2025 10:30 AM CDT Hospital Encounter [facility] Operating Room [facility] [place] [address] Bita Vega MD [address] [place] [phone] 01/10/2025 10:30 AM CDT - 01/10/2025 11:15 AM CDT Surgery [facility] Operating Room [facility] [place] [address] Bita Vega MD [address] [place] [address] EXTRACTION CATARACT - PHACOEMULSIFICATION AND LENS IMPLANT Scheduled Procedures Name Priority Associated Diagnoses Date/Ti me EXTRACTION CATARACT - PHACOEMULSIFICATION AND LENS IMPLANT 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 01/10/2025 10:30 AM CDT Procedures Procedure Name Priority Date/Time Associated Diagnosis Comments B-SCAN ULTRASOUND 77697 - OD - RIGHT EYE Routine 11/01/2024 2:15 PM PROFILING MACHINE OPERATOR Traction detachment of both retinas B-SCAN ULTRASOUND 45915 - OS - LEFT EYE Routine 11/01/2024 2:15 PM PROFILING MACHINE OPERATOR Traction detachment of both retinas IOL BIOMETRY - OU - BOTH EYES Routine 09/24/2024 4:25 PM PROFILING MACHINE OPERATOR Cataract of both eyes, unspecified cataract type B-SCAN ULTRASOUND 87532 - OU - BOTH EYES Routine 09/24/2024 3:37 PM PROFILING MACHINE OPERATOR 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, associated with type 2 diabetes mellitus (HCC) ULTRASOUND IMMERSION - OU - BOTH EYES Routine 09/24/2024 3:36 PM PROFILING MACHINE OPERATOR 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 Notes Total RD, near funnel us Nancie Hoyos MD OPHTH ULTRASOUND Final Res ult * B-SCAN ULTRASOUND 71238 - OS - LEFT EYE (11/01/2024 2:15 PM PROFILING MACHINE OPERATOR) Anatomical Region Laterality Modality Head Ultrasound Narrative 11/01/2024 2:15 PM PROFILING MACHINE OPERATOR Quality was good. Notes disorganized Nancie Hoyos MD [facility] ULTRASOUND Final Res ult * IOL Biometry - OU - Both Eyes (09/24/2024 4:25 PM PROFILING MACHINE OPERATOR) AC IOL (OS) Unable CONTINUUM AC IOL (OD) 3.27 CONTINUUM White to White (OS) Unable CONTINUUM White to White (OD) 11.7 mm CONTINUUM A LENGTH (OS) Phthisis CONTINUUM A LENGTH (OD) Unable CONTINUUM Anatomical Region Laterality Modality Head Ophthalmic Axial Measurements Narrative 09/24/2024 4:50 PM PROFILING MACHINE OPERATOR Right Eye Axial length was Unable. White to white was 11.7 mm. AC Depth was 3.27. Left Eye Axial length was Phthisis. White to white was Unable. AC Depth was Unable. Notes Immersion performed OD: Axial: 22.78 mm & LT: 3.64 mm Completely opaque cornea left eye (OS) Acceptable for surgical planning. Bita Vega MD Bita Vega MD [facility] ULTRASOUND Final Resu lt * B-SCAN ULTRASOUND 36505 - OU - BOTH EYES (09/24/2024 3:37 PM PROFILING MACHINE OPERATOR) Anatomical Region Laterality Modality Head Ultrasound Narrative 09/24/2024 4:50 PM PROFILING MACHINE OPERATOR TRDs right eye (OD) involving macula Left eye (OS): appears to be prephthisical eye us Bita Vega MD [facility] ULTRASOUND Final Resu lt * Ultrasound Immersion [id number] - OU - Both Eyes (09/24/2024 3:36 PM PROFILING MACHINE OPERATOR) AC IOL (OD) 3.45 mm CONTINUUM A LENGTH (OS) Phthisis CONTINUUM A LENGTH (OD) 22.78 mm CONTINUUM Anatomical Region Laterality Modality Head Ultrasound Narrative 09/24/2024 4:50 PM PROFILING MACHINE OPERATOR Right Eye Axial length was 22.78 mm. AC Depth was 3.45 mm. Left Eye Axial length was Phthisis. Notes TRDs right eye (OD) involving macula Left eye (OS): appears to be prephthisical eye us Bita Vega MD OPHTH ULTRASOUND Final Resu lt * eGFR (09/23/2023 5:39 PM PROFILING MACHINE OPERATOR) eGFR 22 mL/min/1. 73 m2 [facility] Comment: Interpretive Data Reference Interval Normal ?>/= 90 mL/min/1.73m2 Mildly decreased* ? 60 - 89 mL/min/1.73m2 Mildly to moderately decreased ?45 - 59 mL/min/1.73m2 Moderately to severely decreased ??30 - 44 mL/min/1.73m2 Severely decreased ?15 - 29 mL/min/1.73m2 Kidney Failure ?< 15 ??mL/min/1.73m2 *Relative to young adult level Estimated glomerular filtration rate is determined by the 2020 CKD-EPI equation recommended by the National Kidney Foundation (A Unifying Approach to GFR Estimation: Recommendations of the NKF-ASK Task Force on Reassessing the Inclusion of Race in Diagnosing Kidney Disease, JASN 2020). The CKD-EPI equation should not be used for patients with unstable renal function and has not been validated in children and those over 70. Current interpretive data was last reviewed 2021. Blood 09/23/2023 5:39 PM PROFILING MACHINE OPERATOR 09/23/2023 8:31 PM PROFILING MACHINE OPERATOR us Tyrel Simmons MD LAB BLOOD ORDERABLES Final Result [facility] [address] [address] Department [place] [address] * (ABNORMAL) Albumin Creatinine Ratio, Urine (04/17/2023 4:23 PM CDT) Albumin Ur 467.4 mg/L [facility] Comment: Interpretive Data No reference range established. Current interpretive data was last revised 2019. Creatinine Ur 38.0 mg/dL [facility] Comment: Interpretive Data No reference range established. Current interpretive data was last revised 2019. Albumin Creatinine Ratio, Ur 1,230(H) 1 - 29 mg/g [facility] Urine 04/17/2023 4:23 PM CDT 04/17/2023 4:31 PM CDT us Golden Kidd MD LAB URINE ORDERABLES Final [facility] [address] [facility] Department [place] [address] * (ABNORMAL) Lipid panel (04/17/2023 1:03 PM CDT) Cholesterol 97 30 - 199 mg/dL [facility] Comment: Interpretive Data Ages < or = 19 years ??Acceptable: ? <170 mg/dL ??Borderline high: ??170-199 mg/dL ??High: ? >or= 200 mg/dL Ages > or = 20 years ??Desirable: ?<200 mg/dL ??Borderline high: ??200-239 mg/dL ??High: ? >or= 240 mg/dL Literature References: 1. Expert Panel on Integrated Guidelines for Cardiovascular Health and Risk Reduction in Children and Adolescents. Pediatrics 2011;128:S213 2. NCEP Expert Panel. Circulation 2004;110:227 Current Interpretive Data was last revised on 2018. Triglycerides 61 <=149 mg/dL [facility] Comment: Interpretive Data Ages < or = 9 years ??Acceptable: ? <75 mg/dL ??Borderline high: ??75-99 mg/dL ??High: ? >or= 100 mg/dL Ages 10 to 20 years ??Acceptable: ? <90 mg/dL ??Borderline high: ??90-129 mg/dL ??High: ? >or= 130 mg/dL Ages > or = 20 years ??Desirable: ?<150 mg/dL ??Borderline high: ??150-199 mg/dL ??High: ? 200-499 mg/dL ?Very high: ?? >or= 499 mg/dL Literature References: 1. Expert Panel on Integrated Guidelines for Cardiovascular Health and Risk Reduction in Children and Adolescents. Pediatrics 2011;128:S213 2. NCEP Expert Panel. Circulation 2004;110:227 Current Interpretive Data was last revised on 2018. HDL 38(L) >=40 mg/dL [facility] Comment: Interpretive Data Ages < or = 19 years ??Acceptable: ? >45 mg/dL ??Borderline low: ?? 40-45 mg/dL ??Low: ? <40 mg/dL Ages > or = 20 years ??Desirable: ?>or= 60 mg/dL ??Low: ? <40 mg/dL Literature References: 1. Expert Panel on Integrated Guidelines for Cardiovascular Health and Risk Reduction in Children and Adolescents. Pediatrics 2011;128:S213 2. NCEP Expert Panel. Circulation 2004;110:227 Current Interpretive Data was last revised on 2018. LDL, calculated 47 <=129 mg/dL [facility] Comment: Interpretive Data Ages < or = 19 years ??Acceptable: ? <110 mg/dL ??Borderline high: ??110-129 mg/dL ??High: ?>or= 130 mg/dL Ages > or = 20 years ??Optimal: ? <100 mg/dL ??Near optimal: ?100-129 mg/dL ??Borderline high: ?? 130-159 mg/dL ??High: ?>160 mg/dL Literature References: 1. Expert Panel on Integrated Guidelines for Cardiovascular Health and Risk Reduction in Children and Adolescents. Pediatrics 2011;128:S213 2. NCEP Expert Panel. Circulation 2004;110:227 Current Interpretive Data was last revised on 2018. Non-HDL Cholesterol 59 mg/dL [facility] Comment: Interpretive Data Ages < or = 19 years ??Acceptable: ?<120 mg/dL ??Borderline high: ??120-144 mg/dL ??High: ?>145 mg/dL Ages > or = 20 years ??When triglycerides are >200 mg/dL, Non-HDL cholesterol is a secondary target of ? therapy with treatment goals that are 30 mg/dL greater than the LDL cholesterol target. ? Literature References: 1. Expert Panel on Integrated Guidelines for Cardiovascular Health and Risk Reduction in Children and Adolescents. Pediatrics 2011;128:S213 2. NCEP Expert Panel. Circulation 2004;110:227 Current Interpretive Data was last revised on 2018. Chol/HDL ratio 3 [facility] Blood 04/17/2023 1:03 PM CDT 04/17/2023 1:51 PM CDT Sultan Sofía Muro MD LAB BLOOD ORDERABLES Final Re sult [facility] [address] [facility] Department of Laboratories [place], [place] [id number] * (ABNORMAL) Hemoglobin A1c (04/16/2023 7:06 AM CDT) Hgb A1C 6.5(H) 4.0 - 5.6 % [facility] Estimated Average Glucose 140 mg/dL [facility] Comment: The ADA recommends reporting an estimated Average Glucose (eAG) with all Hemoglobin A1c results using the equation derived from a study of 507 normal and diabetic adults. ??Minority populations were underrepresented and children were not included. ?? (Diabetes Care 31:9315-2495, 2008). ??The eAG is not equivalent to a fasting glucose. 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 Use antibiotics, IV Fluids, and medical treatment unless specifically selected below: No intubation * Full Code Date Activated Date Inactivated Comments 04/24/2023 9:39 AM 04/25/2023 9:20 AM * LIMITED - No CPR Date Activated Date Inactivated Comments 04/23/2023 11:13 AM 04/24/2023 9:39 AM Question Answer Comments Provide aggressive medical m anagement before a full cardiopulmonary arrest occurs. Use antibiotics, IV Fluids, and medical treatment unless specifically selected below: No intubationNo non-invasive ventilation * Full Code Date Activated Date Inactivated Comments 04/15/2023 6:49 PM 04/23/2023 11:13 AM Healthcare Agents on File Name Relationship Healthcare Agent Bernicehi p Communication Jordyjorge a Nunez Sister Health Care Agent Suellen Resendiz Mother First Alternate Health Care Agent Care Teams Windows Software Developer Relationship Specialty Start Date End Date Cherise Patrick PA [address] [place] [address] PCP - General Physician Fire Regulator 02/20/23
--- OUTSIDE RECORDS SUMMARY | 2024-11-17 03:10 | XMS_ITS | Clinical Summary ---
Author Organization [facility] Address [address] [place] [address] Care Team Providers Care Location Man Name Role Phone Cherise Patrick Primary Care Provider [phone] Allergies No known active allergies Medications loperamide [...] 11/01/2024 Assessment & Plan (11/01/2024 2:13 PM GIFT MANAGER): With severe tractional retinal detachments in both [...] Date Shortness of breath 04/15/2023 04/15/20 23 Encounters Date Type Department Care Team Description 11/08/2024 Telephone [facility] [address] [place] [phone] Bita Vega MD return call 11/01/2024 1:20 PM GIFT MANAGER Office Visit [facility] [address] [place] [phone] Nancie Hoyos MD Traction detachment of both retinas (Primary Dx) 09/24/2024 2:40 PM GIFT MANAGER Imaging Exam [facility] [address] [place] [phone] 09/24/2024 2:35 PM GIFT MANAGER Imaging Exam [facility] [address] [place] [phone] 09/24/2024 1:15 PM GIFT MANAGER Office Visit [facility] [address] [place] [phone] Bita Vega MD 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); 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, associated with type 2 diabetes mellitus (HCC) 09/24/2024 12:20 PM GIFT MANAGER Imaging Exam [facility] [address] [place] [phone] Cataract of both eyes, unspecified cataract type (Primary Dx) 09/10/2024 Telephone [facility] Formerly [facility] [place] [address] Uriah Oh Scheduling Appointments from Last 3 Months Surgical History Surgery Date Site/Laterality Comments ABOVE KNEE LEG AMPUTATION 12/04/2022 - 12/31/2022 Left Medical History Medical History Date Comments Hypertension Diabetes mellitus (HCC) CHF (congestive heart failure) (CMS/HCC) (HCC) CKD (chronic kidney disease) Hx of AKA (above knee amputation) (CMS/HCC) (HCC ) Left Social History Tobacco Use Types Packs/Day Years [...] Never 04/16/2023 How often do you attend restorationist or congregational serv ices? Never 04/16/2023 Do you belong to any clubs o r organizations such as restorationist groups, unions, fraternal or athletic groups, or [...] slept in a long-term (including now)? No 04/16/2023 Housing Stability Vital [...] on file Legal Sex Female 8:53 PM GIFT MANAGER Gender Identity Not on file Sexual Orientation Not on file Obstetrics History Last Filed Vital Signs Vital Sign Reading Time Taken Comments Blood Pressure 177/99 06/14/2024 10:22 AM CDT Pulse 87 06/14/2024 10:22 AM CDT Temperature 36.7 ??C (98.1 ??F) 06/14/2024 10:22 AM C DT Respiratory Rate 22 04/26/2023 3:00 AM CDT Oxygen Saturation 96% 06/14/2024 10:22 AM CDT Inhaled Oxygen Concentration - - Weight 161.9 kg (357 lb) 04/21/2023 6:07 AM CDT Height 170.2 cm (5' 7 ) 06/14/2024 10:22 AM CDT Body Mass Index 55.91 04/15/2023 7:50 PM CDT Plan of Treatment Upcoming Encounters Date Type Department Care Team (Latest Contact Info) Description 01/10/2025 10:30 AM CDT Hospital Encounter [facility] Operating [facility] [address] [place] [address] Bita Vega MD [address] [place] [address] (work) 01/10/2025 10:30 AM CDT - 01/10/2025 11:15 AM CDT Surgery [facility] Operating Room [facility] [address] [place] [address] Bita Vega MD [address] [place] [address] EXTRACTION CATARACT - PHACOEMULSIFICATION AND LENS IMPLANT Scheduled Procedures Name Priority Associated Diagnoses Date/Ti me EXTRACTION CATARACT - PHACOEMULSIFICATION AND LENS IMPLANT 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 01/10/2025 10:30 AM CDT Health Maintenance Due Date Last Done Comments Cervical Cancer Screening 1992 Depression Screening 1992 Hepatitis C Screening 1992 Foot Exam 1992 Pneumococcal vaccine <65 (1 of 2 - PCV) 1998 HPV Vaccines (3 - 3-dose series) 10/25/2008 06/24/20 08, 04/25/2008 Regular Well Visit/Exam 18-64 2010 Hemoglobin A1C 10/16/2023 04/16/2023 Albumin Creatinine Ratio, Urine 04/17/2024 Lipid Panel 04/17/2024 04/17/2023, 12/02/2022 Influenza Vaccine (#1) 2024 eGFR 09/23/2024 09/23/2023, 04/04, 04/25/2023, Additional history exists Dilated Eye Exam 11/01/2025 11/01/2024 DTaP/Tdap/Td Vaccine (7 - Td or Tdap) 12/02/2032 12/02/2022, 08/14/2006, 05/08/1994, Additional history exists Varicella Vaccines Completed 04/25/2008, 08/13/2007 Procedures Procedure Name Priority Date/Time Associated Diagnosis Comments B-SCAN ULTRASOUND 96856 - OD - RIGHT EYE Routine 11/01/2024 2:15 PM GIFT MANAGER Traction detachment of both retinas B-SCAN ULTRASOUND 40073 - OS - LEFT EYE Routine 11/01/2024 2:15 PM GIFT MANAGER Traction detachment of both retinas IOL BIOMETRY - OU - BOTH EYES Routine 09/24/2024 4:25 PM GIFT MANAGER Cataract of both eyes, unspecified cataract type B-SCAN ULTRASOUND 50656 - OU - BOTH EYES Routine 09/24/2024 3:37 PM GIFT MANAGER 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, associated with type 2 diabetes mellitus (HCC) ULTRASOUND IMMERSION - OU - BOTH EYES Routine 09/24/2024 3:36 PM GIFT MANAGER 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 Notes Total RD, near funnel Nancie Hoyos MD [facility] ULTRASOUND Final Res ult * B-SCAN ULTRASOUND 89863 - OS - LEFT EYE (11/01/2024 2:15 PM GIFT MANAGER) Anatomical Region Laterality Modality Head Ultrasound Narrative 11/01/2024 2:15 PM GIFT MANAGER Quality was good. Notes disorganized Nancie Hoyos MD [facility] ULTRASOUND Final Res ult * IOL Biometry - OU - Both Eyes (09/24/2024 4:25 PM GIFT MANAGER) AC IOL (OS) Unable CONTINUUM AC IOL (OD) 3.27 CONTINUUM White to White (OS) Unable CONTINUUM White to White (OD) 11.7 mm CONTINUUM A LENGTH (OS) Phthisis CONTINUUM A LENGTH (OD) Unable CONTINUUM Anatomical Region Laterality Modality Head Ophthalmic Axial Measurements Narrative 09/24/2024 4:50 PM GIFT MANAGER Right Eye Axial length was Unable. White to white was 11.7 mm. AC Depth was 3.27. Left Eye Axial length was Phthisis. White to white was Unable. AC Depth was Unable. Notes Immersion performed OD: Axial: 22.78 mm & LT: 3.64 mm Completely opaque cornea left eye (OS) Acceptable for surgical planning. 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 AC Depth was 3.45 mm. Left Eye Axial length was Phthisis. Notes TRDs right eye (OD) involving macula Left eye (OS): appears to be prephthisical eye Bita Vega MD [facility] ULTRASOUND Final Resu lt * eGFR (09/23/2023 5:39 PM GIFT MANAGER) eGFR 22 mL/min/1. 73 m2 [facility] [...] last reviewed 2021. Blood 09/23/2023 5:39 PM GIFT MANAGER 09/23/2023 8:31 PM GIFT MANAGER us Tyrel Simmons MD LAB BLOOD ORDERABLES Final Result Performing Organization Address City/State/ZIP Co fl Phone Number [facility] [address] [address] Department of Laboratories [place], [place] [id number] * (ABNORMAL) Albumin Creatinine Ratio, Urine (04/17/2023 4:23 PM CDT) Albumin Ur 467.4 mg/L [facility] Comment: Interpretive Data No reference range established. Current interpretive data was last revised 2019. Creatinine Ur 38.0 mg/dL [facility] Comment: Interpretive Data No reference range established. Current interpretive data was last revised 2019. Albumin Creatinine Ratio, Ur 1,230(H) 1 - 29 mg/g [facility] Urine 04/17/2023 4:23 PM CDT 04/17/2023 4:31 PM CDT us Golden Kidd MD LAB URINE ORDERABLES Final Re sult [facility] [address] [facility] Department [place] [address] * (ABNORMAL) Lipid panel (04/17/2023 1:03 PM [...] on 2018. HDL 38(L) >=40 mg/dL [facility] Comment: Interpretive Data Ages < [...] 2018. LDL, calculated 47 <=129 mg/dL [facility] Comment: Interpretive Data Ages < [...] on 2018. Non-HDL Cholesterol 59 mg/dL [facility] Comment: Interpretive Data Ages < [...] revised on 2018. Chol/HDL ratio 3 [facility] Blood 04/17/2023 1:03 PM CDT 04/17/2023 1:51 PM CDT Sultan Sofía Muro MD LAB BLOOD ORDERABLES Final Re sult Performing Organization Address [facility] de Phone Number [facility] [place] [address] * (ABNORMAL) Hemoglobin A1c (04/16/2023 7:06 AM CDT) Hgb A1C 6.5(H) 4.0 - 5.6 % [facility] Estimated Average Glucose 140 mg/dL [facility] Comment: The ADA recommends reporting an estimated Average Glucose (eAG) with all Hemoglobin A1c results using the equation derived from a study of 507 normal and diabetic adults. ??Minority populations were underrepresented and children were not included. ?? (Diabetes Care 31:2822-4102, 2008). ??The eAG is not equivalent to a fasting glucose. Blood 04/16/2023 7:06 AM CDT 04/16/2023 7:45 AM CDT Amilcar Estrada MD LAB BLOOD ORDERABLES Final Re sult Performing Organization Address [facility] Co de Phone Number [facility] [address] [facility] [place] [address] from Last 3 Months or Most Recently Relevant to Health Maintenance Insurance [facility] Advance Directives For more information, please contact: [phone] Documents on File Type Date Recorded Patient Caul Fat Puller Expl anation ADVANCE DIRECTIVE 04/23/2023 12:11 PM Breana r of Channel Program Manager-Medical ADVANCE DIRECTIVE 04/23/2023 12:11 PM POLS T [...] Agents on File Name Relationship Healthcare Agent Berniceva chito Nunez [facility] Health Care Agent Suellen Martín Mother [facility] Health Care Agent Care Teams Location Man Relationship Specialty Start Date End Date Cherise Patrick PA [address] [place] [address] PCP - General Physician Costume Designer 02/20/23
--- OUTSIDE RECORDS SUMMARY | 2024-11-17 03:10 | XMS_ITS ---
Author Organization [facility]il[facility] alcazar ([facility]) Address [address] [place] [id number] Care Team Providers Care Disk Grinder Name Role Phone Unavailable Unavailable Unavailable Allergies, Adverse Reactions, Alerts Allergy Name Allergy Type Status Severity Reaction(s) Onset Date Inactive Date Treating Clinician Comments No Known Allergies Allergy Active 2023-08 13:49:5 6 Medications Ordered Medication Name Filled Medication Name Start Date Stop Date Current Medication? Ordering Clinician Indication Dosage Frequency Signature (SIG) Comments Components Mircera 2023-11 13:36: 00 Yes [id number] Number of Repeats Allowed: Frequency: NEELAM dosing, every two weeks calcitriol 2023-11 16:55: 04 Yes [id number] Number of Repeats Allowed: Frequency: Three times a week Apixaban 2023-11 05:00: 00 11-10 05:59 :59 No Number of Repeats Allowed: Frequency: Two times a day Venofer 03-19 19:30: 00 Yes [id number] Number of Repeats Allowed: Frequency: One time a weekDosesO rdered: Maintenanc e Dose 50 Milligram Route: Intravenou s ONS Tammie Formulary 03-15 14:37: 04 Yes [id number] Number of Repeats Allowed: Frequency: Every Dialysis Treatment clonidine 03-09 13:49: 53 Yes [id number] Number of Repeats Allowed: Frequency: Every 4 hours as needed clonidine 03-09 13:49: 37 Yes [id number] Number of Repeats Allowed: Frequency: Every 4 hours as needed Gabapentin 03-08 17:27: 27 Yes Number of Repeats Allowed: Frequency: One time a day Furosemide 03-08 17:26: 14 Yes Number of Repeats Allowed: Frequency: Three times a week on Friday, Friday and Friday Sennosides 03-08 17:25: 14 Yes Number of Repeats Allowed: Frequency: One time a day Renal Vitamin 03-08 17:24: 35 Yes Number of Repeats Allowed: Frequency: One time a day Polyethylen e Glycol 3350 03-08 17:15: 45 Yes Number of Repeats Allowed: Frequency: One time a day heparin sodium, porcine 01-26 19:17: 45 Yes [id number] Number of Repeats Allowed: Frequency: Every Dialysis TreatmentD osesOrdere d: Loading Dose 3000 Units 1:1000 Units/mLRo tat[place]: Intravenou s heparin sodium, porcine 01-26 19:17: 25 Yes [id number] Number of Repeats Allowed: Frequency: Every Dialysis TreatmentD osesOrdere d: Hourly Dose 1000 Units/Hr 1:1000 Units/mLRo [place]: Intravenou s ondansetron hydrochlori de 12-09 17:42: 27 Yes [id number] Number of Repeats Allowed: Frequency: Every 4 hours as needed Acetaminoph en 11-26 21:00: 30 Yes Number of Repeats Allowed: Frequency: Every four hours heparin sodium, porcine 2022-11 19:43: 45 Yes [id number] Number of Repeats Allowed: Frequency: Post-dialy sisDosesOr dered: Post CVC Instillati on 2000 Units 1:1000 Units/mLRo tatitlek: Intracathe terDosesOr dered: Post CVC Instillati on 2100 Units 1:1000 Units/mLRo tatitlek: Intracathe ter Nystatin 2022-11 14:05: 54 Yes Number of Repeats Allowed: Frequency: As needed Melatonin 2022-11 13:58: 59 Yes Number of Repeats Allowed: Frequency: Once a day, at bedtime Lisinopril 2022-11 13:57: 17 Yes Number of Repeats Allowed: Frequency: One time a day Insulin Lispro 2022-11 13:56: 48 Yes Number of Repeats Allowed: Frequency: As needed Ferrous Sulfate 2022-11 13:29: 25 Yes Number of Repeats Allowed: Frequency: One time a day Carvedilol 2022-11 13:26: 44 Yes Number of Repeats Allowed: Frequency: Two times a day Bisacodyl 2022-11 13:25: 13 Yes Number of Repeats Allowed: Frequency: As needed amLODIPine Besylate 2022-11 13:21: 58 Yes Number of Repeats Allowed: Frequency: One time a day Oxygen 2022-11 14:41: 49 Yes [id number] Number of Repeats Allowed: Frequency: As needed Normal Saline Solution 0.9% NaCl 2022-11 14:41: 27 Yes [id number] Number of Repeats Allowed: Frequency: As needed EpiPen 2-Nickolas 2022-11 14:41: 18 Yes [id number] Number of Repeats Allowed: Frequency: Every 4 hours as needed diphenhydra mine hydrochlori de 2022-11 14:41: 09 Yes [id number] Number of Repeats Allowed: Frequency: Every 4 hours as needed diphenhydra mine hydrochlori de 2022-11 14:40: 58 Yes [id number] Number of Repeats Allowed: Frequency: Every 4 hours as needed acetaminoph en 2022-11 14:39: 42 Yes [id number] Number of Repeats Allowed: Frequency: Every 4 hours as needed Problems This patient has no known problems. Procedures Procedure Date / Time Performed Performing Clinician Jewell ce Details Central Venous Catheter (CVC) 2023-08-15 05:00:00 Access Site Chest (Right) Access Use Start Date 2023-08-26 00:00:0 0 DIALYSIS ORDER Dialysis Procedure Orders Type of Dialysis Procedure Order Order Date/Time Observations In-Center Hemodialysis Treatment [facility] 2023 Target Weight 107 kg Dialysate Flow Rate 800 mL/min Blood Flow Rate 400 mL/min Treatment Time 210 min(total) Max UF Rate 13 mL/kg/hr Base Sodium Dialysate Base Sodium 140 mE q/L dialysate_temp 37 ?C BiCarb Dialysate BiCarbonate 30 mEq/L Access Concurrent No Arterial Access Central Venous Sana ter (CVC) (Chest (Right)) Venous Access Central Venous Sana ter (CVC) (Chest (Right)) Dialyzer Nipro Elisio 17H 145 5 treatment_bath_[email or web address] Dialysate Bath Potassium Potassium 3 mEq /L Dialysate Bath Calcium Calcium 2.5 mEq/L Results Adequacy Description Draw Date Result/Unit Status Ref Range Result Comments URR% 2024-11-17 07:24:29 70 % F WEIGHT - POST DAY 1 2024-11-17 07:24:29 115 kg F Std Renal KT/V 2024-11-17 07:24:29 N/A F eKt/V 2024-11-17 07:24:29 1.21 F TOTAL HOURS/WEEK DIALYSIS 2024-11-17 07:24:29 6 hrs F stdKt/V (DIAL) 2024-11-17 07:24:29 N/A F WEIGHT (KG) 2024-11-17 07:24:29 107 kg F HEIGHT IN INCHES 2024-11-17 07:24:29 67 Inches F VM (KT/V MEAN VOL) 2024-11-17 07:24:29 75 F stdKT/V Total 2024-11-17 07:24:29 N/A F VT (KT/V TX VOL) 2024-11-17 07:24:29 43.5 L F Residual kt/v 2024-11-17 07:24:29 F CURRENT KRU 2024-11-17 07:24:29 F AMPUTATE FACTOR 2024-11-17 07:24:29 0.059 F KT/V PRESCRIBED 2024-11-17 07:24:29 1.8 F LENGTH OF DIALYSIS 2024-11-17 07:24:29 205 min F WEIGHT - PRE DAY 1 2024-11-17 07:24:29 118.6 kg F DIALYZER FLOW-QD 2024-11-17 07:24:29 800 mL/min F BLOOD FLOW-QWB 2024-11-17 07:24:29 399 F TBW ([facility]) 2024-11-17 07:24:29 43.5 Liters F nPCR 2024-11-17 07:24:29 0.76 G/KG/D F PATIENT AGE 2024-11-17 07:24:29 34 Years F spKt/V 2024-11-17 07:24:29 1.42 F PRESCRIBED DAYS/WEEK 2024-11-17 07:24:29 3 Day/Wk F BSA HILTON 2024-11-17 07:24:29 2.09 sq m F Dialyzer REJI 2024-11-17 07:24:29 1455 Calc F Total Kt/V 2024-11-17 07:24:29 1.42 F Urea nitrogen [Mass/volume] in Serum or Plasma 2024-11-17 07:03:16 54 mg/dL F 9.0-23.0 Urea nitrogen [Mass/volume] in Serum or Plasma --post dialysis 2024-11-17 06:29:17 16 mg/dL F 9.0-23.0 Creatinine [Mass/volume] in Serum or Plasma 2024-10-21 15:05:28 6.96 mg/dL F 0.5-1.1 stdKt/V (DIAL) 2024-10-08 00:06:36 N/A F TBW ([facility]) 2024-10-08 00:06:36 42.27 Liters F KT/V PRESCRIBED 2024-10-08 00:06:36 1.85 F eKt/V 2024-10-08 00:06:36 1.23 F stdKT/V Total 2024-10-08 00:06:36 N/A F spKt/V 2024-10-08 00:06:36 1.44 F CURRENT KRU 2024-10-08 00:06:36 F AMPUTATE FACTOR 2024-10-08 00:06:36 0.065 F Std Renal KT/V 2024-10-08 00:06:36 N/A F Residual kt/v 2024-10-08 00:06:36 F BLOOD FLOW-QWB 2024-10-08 00:06:36 399 F TOTAL HOURS/WEEK DIALYSIS 2024-10-08 00:06:36 7 hrs F nPCR 2024-10-08 00:06:36 0.88 G/KG/D F Total Kt/V 2024-10-08 00:06:36 1.44 F WEIGHT - PRE DAY 1 2024-10-08 00:06:35 114 kg F VM (KT/V MEAN VOL) 2024-10-08 00:06:35 75 F VT (KT/V TX VOL) 2024-10-08 00:06:35 44 L F HEIGHT IN INCHES 2024-10-08 00:06:35 67 Inches F WEIGHT - POST DAY 1 2024-10-08 00:06:35 110.4 kg F LENGTH OF DIALYSIS 2024-10-08 00:06:35 210 min F PATIENT AGE 2024-10-08 00:06:35 34 Years F WEIGHT (KG) 2024-10-08 00:06:35 107 kg F DIALYZER FLOW-QD 2024-10-08 00:06:35 800 mL/min F BSA H[place]TON 2024-10-08 00:06:35 2.09 sq m F PRESCRIBED DAYS/WEEK 2024-10-08 00:06:35 3 Day/Wk F Dialyzer REJI 2024-10-08 00:06:35 1455 Calc F URR% 2024-10-08 00:06:35 70 % F Urea nitrogen [Mass/volume] in Serum or Plasma 2024-10-08 00:03:20 54 mg/dL F 9.0-23.0 Urea nitrogen [Mass/volume] in Serum or Plasma --post dialysis 2024-10-07 21:16:22 16 mg/dL F 9.0-23.0 Residual kt/v 2024-09-23 15:13:52 F eKt/V 2024-09-23 15:13:52 1.12 F Std Renal KT/V 2024-09-23 15:13:52 N/A F Dialyzer REJI 2024-09-23 15:13:52 1626 Calc F HEIGHT IN INCHES 2024-09-23 15:13:52 67 Inches F VT (KT/V TX VOL) 2024-09-23 15:13:52 49 L F BSA H[place] 2024-09-23 15:13:52 2.09 sq m F DIALYZER FLOW-QD 2024-09-23 15:13:52 800 mL/min F PATIENT AGE 2024-09-23 15:13:52 34 Years F nPCR 2024-09-23 15:13:52 0.83 G/KG/D F AMPUTATE FACTOR 2024-09-23 15:13:52 0.065 F stdKt/V (DIAL) 2024-09-23 15:13:52 N/A F CURRENT KRU 2024-09-23 15:13:52 F WEIGHT - PRE DAY 1 2024-09-23 15:13:52 110.4 kg F LENGTH OF DIALYSIS 2024-09-23 15:13:52 209 min F TOTAL HOURS/WEEK DIALYSIS 2024-09-23 15:13:52 10 hrs F WEIGHT - POST DAY 1 2024-09-23 15:13:52 107.8 kg F Total Kt/V 2024-09-23 15:13:52 1.31 F VM (KT/V MEAN VOL) 2024-09-23 15:13:52 75 F KT/V PRESCRIBED 2024-09-23 15:13:52 1.88 F PRESCRIBED DAYS/WEEK 2024-09-23 15:13:52 3 Day/Wk F BLOOD FLOW-QWB 2024-09-23 15:13:52 399 F spKt/V 2024-09-23 15:13:52 1.31 F WEIGHT (KG) 2024-09-23 15:13:52 107 kg F stdKT/V Total 2024-09-23 15:13:52 N/A F TBW ([facility]) 2024-09-23 15:13:52 41.63 Liters F stdKT/V Total 2024-09-23 15:13:52 N/A F KT/V PRESCRIBED 2024-09-23 15:13:52 1.88 F nPCR 2024-09-23 15:13:52 0.83 G/KG/D F WEIGHT (KG) 2024-09-23 15:13:52 107 kg F PRESCRIBED DAYS/WEEK 2024-09-23 15:13:52 3 Day/Wk F CURRENT KRU 2024-09-23 15:13:52 F HEIGHT IN INCHES 2024-09-23 15:13:52 67 Inches F Residual kt/v 2024-09-23 15:13:52 F WEIGHT - POST DAY 1 2024-09-23 15:13:52 107.8 kg F WEIGHT - PRE DAY 1 2024-09-23 15:13:52 110.4 kg F TOTAL HOURS/WEEK DIALYSIS 2024-09-23 15:13:52 10 hrs F PATIENT AGE 2024-09-23 15:13:52 34 Years F AMPUTATE FACTOR 2024-09-23 15:13:52 0.065 F Total Kt/V 2024-09-23 15:13:52 1.31 F BLOOD FLOW-QWB 2024-09-23 15:13:52 399 F VM (KT/V MEAN VOL) 2024-09-23 15:13:52 75 F TBW ([facility]) 2024-09-23 15:13:52 41.63 Liters F BSA HILTON 2024-09-23 15:13:52 2.09 sq m F spKt/V 2024-09-23 15:13:52 1.31 F Std Renal KT/V 2024-09-23 15:13:52 N/A F DIALYZER FLOW-QD 2024-09-23 15:13:52 800 mL/min F stdKt/V (DIAL) 2024-09-23 15:13:52 N/A F VT (KT/V TX VOL) 2024-09-23 15:13:52 49 L F Dialyzer REJI 2024-09-23 15:13:52 1626 Calc F eKt/V 2024-09-23 15:13:52 1.12 F LENGTH OF DIALYSIS 2024-09-23 15:13:52 209 min F URR% 2024-09-23 15:13:51 67 % F URR% 2024-09-23 15:13:51 67 % F Urea nitrogen [Mass/volume] in Serum or Plasma --post dialysis 2024-09-23 15:12:18 14 mg/dL F 9.0-23.0 Urea nitrogen [Mass/volume] in Serum or Plasma --post dialysis 2024-09-23 15:12:18 14 mg/dL F 9.0-23.0 Creatinine [Mass/volume] in Serum or Plasma 2024-09-23 14:10:14 6.45 mg/dL F 0.5-1.1 Urea nitrogen [Mass/volume] in Serum or Plasma 2024-09-23 14:10:14 43 mg/dL F 9.0-23.0 Creatinine [Mass/volume] in Serum or Plasma 2024-09-23 14:10:14 6.45 mg/dL F 0.5-1.1 Urea nitrogen [Mass/volume] in Serum or Plasma 2024-09-23 14:10:14 43 mg/dL F 9.0-23.0 stdKT/V Total 2024-09-18 21:18:26 N/A F WEIGHT - POST DAY 1 2024-09-18 21:18:26 109.9 kg F HEIGHT IN INCHES 2024-09-18 21:18:26 67 Inches F spKt/V 2024-09-18 21:18:26 1.1 F Total Kt/V 2024-09-18 21:18:26 1.1 F WEIGHT (KG) 2024-09-18 21:18:26 107 kg F Dialyzer REJI 2024-09-18 21:18:26 1626 Calc F Residual kt/v 2024-09-18 21:18:26 F DIALYZER FLOW-QD 2024-09-18 21:18:26 800 mL/min F Std Renal KT/V 2024-09-18 21:18:26 N/A F nPCR 2024-09-18 21:18:26 0.7 G/KG/D F CURRENT KRU 2024-09-18 21:18:26 F eKt/V 2024-09-18 21:18:26 0.95 F URR% 2024-09-18 21:18:26 61 % F KT/V PRESCRIBED 2024-09-18 21:18:26 1.92 F AMPUTATE FACTOR 2024-09-18 21:18:26 0.065 F BSA H[place] 2024-09-18 21:18:26 2.09 sq m F LENGTH OF DIALYSIS 2024-09-18 21:18:26 214 min F BLOOD FLOW-QWB 2024-09-18 21:18:26 362 F TBW ([facility]) 2024-09-18 21:18:26 42.15 Liters F VT (KT/V TX VOL) 2024-09-18 21:18:26 55.9 L F TOTAL HOURS/WEEK DIALYSIS 2024-09-18 21:18:26 10 hrs F VM (KT/V MEAN VOL) 2024-09-18 21:18:26 75 F PATIENT AGE 2024-09-18 21:18:26 34 Years F WEIGHT - PRE DAY 1 2024-09-18 21:18:26 112.4 kg F PRESCRIBED DAYS/WEEK 2024-09-18 21:18:26 3 Day/Wk F stdKt/V (DIAL) 2024-09-18 21:18:26 N/A F CURRENT KRU 2024-09-18 21:18:26 F nPCR 2024-09-18 21:18:26 0.7 G/KG/D F HEIGHT IN INCHES 2024-09-18 21:18:26 67 Inches F VM (KT/V MEAN VOL) 2024-09-18 21:18:26 75 F DIALYZER FLOW-QD 2024-09-18 21:18:26 800 mL/min F Residual kt/v 2024-09-18 21:18:26 F Std Renal KT/V 2024-09-18 21:18:26 N/A F WEIGHT (KG) 2024-09-18 21:18:26 107 kg F KT/V PRESCRIBED 2024-09-18 21:18:26 1.92 F LENGTH OF DIALYSIS 2024-09-18 21:18:26 214 min F spKt/V 2024-09-18 21:18:26 1.1 F TBW ([facility]) 2024-09-18 21:18:26 42.15 Liters F BLOOD FLOW-QWB 2024-09-18 21:18:26 362 F WEIGHT - PRE DAY 1 2024-09-18 21:18:26 112.4 kg F eKt/V 2024-09-18 21:18:26 0.95 F AMPUTATE FACTOR 2024-09-18 21:18:26 0.065 F URR% 2024-09-18 21:18:26 61 % F PRESCRIBED DAYS/WEEK 2024-09-18 21:18:26 3 Day/Wk F WEIGHT - POST DAY 1 2024-09-18 21:18:26 109.9 kg F Total Kt/V 2024-09-18 21:18:26 1.1 F BSA H[place] 2024-09-18 21:18:26 2.09 sq m F stdKt/V (DIAL) 2024-09-18 21:18:26 N/A F stdKT/V Total 2024-09-18 21:18:26 N/A F TOTAL HOURS/WEEK DIALYSIS 2024-09-18 21:18:26 10 hrs F PATIENT AGE 2024-09-18 21:18:26 34 Years F VT (KT/V TX VOL) 2024-09-18 21:18:26 55.9 L F Dialyzer REJI 2024-09-18 21:18:26 1626 Calc F Urea nitrogen [Mass/volume] in Serum or Plasma 2024-09-18 21:16:18 36 mg/dL F 9.0-23.0 Urea nitrogen [Mass/volume] in Serum or Plasma 2024-09-18 21:16:18 36 mg/dL F 9.0-23.0 Urea nitrogen [Mass/volume] in Serum or Plasma --post dialysis 2024-09-18 20:46:14 14 mg/dL F 9.0-23.0 Urea nitrogen [Mass/volume] in Serum or Plasma --post dialysis 2024-09-18 20:46:14 14 mg/dL F 9.0-23.0 WEIGHT - PRE DAY 1 2024-09-14 15:39:54 113 kg F spKt/V 2024-09-14 15:39:54 F Unable to calculate: Pre BUN lab result is unknown Total Kt/V 2024-09-14 15:39:54 F Unable to calculate: Pre BUN lab result is unknown BSA HILTON 2024-09-14 15:39:54 F Unable to calculate: Pre BUN lab result is unknown stdKT/V Total 2024-09-14 15:39:54 F Unable to calculate: Pre BUN lab result is unknown VM (KT/V MEAN VOL) 2024-09-14 15:39:54 F Unable to calculate: Pre BUN lab result is unknown LENGTH OF DIALYSIS 2024-09-14 15:39:54 211 min F DIALYZER FLOW-QD 2024-09-14 15:39:54 800 mL/min F PRESCRIBED DAYS/WEEK 2024-09-14 15:39:54 3 Day/Wk F BLOOD FLOW-QWB 2024-09-14 15:39:54 400 F WEIGHT (KG) 2024-09-14 15:39:54 107 kg F AMPUTATE FACTOR 2024-09-14 15:39:54 0.065 F Total Kt/V 2024-09-14 15:39:54 F Unable to calculate: Pre BUN lab result is unknown stdKT/V Total 2024-09-14 15:39:54 F Unable to calculate: Pre BUN lab result is unknown spKt/V 2024-09-14 15:39:54 F Unable to calculate: Pre BUN lab result is unknown WEIGHT - POST DAY 1 2024-09-14 15:39:54 110 kg F DIALYZER FLOW-QD 2024-09-14 15:39:54 800 mL/min F nPCR 2024-09-14 15:39:54 F Unable to calculate: Pre BUN lab result is unknown TOTAL HOURS/WEEK DIALYSIS 2024-09-14 15:39:54 9 hrs F BSA [place] 2024-09-14 15:39:54 F Unable to calculate: Pre BUN lab result is unknown eKt/V 2024-09-14 15:39:54 F Unable to calculate: Pre BUN lab result is unknown CURRENT KRU 2024-09-14 15:39:54 F Unable to calculate: Pre BUN lab result is unknown CURRENT KRU 2024-09-14 15:39:54 F Unable to calculate: Pre BUN lab result is unknown Residual kt/v 2024-09-14 15:39:54 F Unable to calculate: Pre BUN lab result is unknown Dialyzer REJI 2024-09-14 15:39:54 1455 Calc F HEIGHT IN INCHES 2024-09-14 15:39:54 67 Inches F stdKt/V (DIAL) 2024-09-14 15:39:54 F Unable to calculate: Pre BUN lab result is unknown URR% 2024-09-14 15:39:54 F Unable to calculate: Pre BUN lab result is unknown AMPUTATE FACTOR 2024-09-14 15:39:54 0.065 F VT (KT/V TX VOL) 2024-09-14 15:39:54 F Unable to calculate: Pre BUN lab result is unknown Std Renal KT/V 2024-09-14 15:39:54 F Unable to calculate: Pre BUN lab result is unknown TBW ([facility]) 2024-09-14 15:39:54 F Unable to calculate: Pre BUN lab result is unknown Dialyzer REJI 2024-09-14 15:39:54 1455 Calc F VM (KT/V MEAN VOL) 2024-09-14 15:39:54 F Unable to calculate: Pre BUN lab result is unknown WEIGHT - PRE DAY 1 2024-09-14 15:39:54 113 kg F PATIENT AGE 2024-09-14 15:39:54 33 Years F KT/V PRESCRIBED 2024-09-14 15:39:54 F Unable to calculate: Pre BUN lab result is unknown LENGTH OF DIALYSIS 2024-09-14 15:39:54 211 min F URR% 2024-09-14 15:39:54 F Unable to calculate: Pre BUN lab result is unknown TBW ([facility]) 2024-09-14 15:39:54 F Unable to calculate: Pre BUN lab result is unknown HEIGHT IN INCHES 2024-09-14 15:39:54 67 Inches F eKt/V 2024-09-14 15:39:54 F Unable to calculate: Pre BUN lab result is unknown nPCR 2024-09-14 15:39:54 F Unable to calculate: Pre BUN lab result is unknown PRESCRIBED DAYS/WEEK 2024-09-14 15:39:54 3 Day/Wk F stdKt/V (DIAL) 2024-09-14 15:39:54 F Unable to calculate: Pre BUN lab result is unknown BLOOD FLOW-QWB 2024-09-14 15:39:54 400 F Std Renal KT/V 2024-09-14 15:39:54 F Unable to calculate: Pre BUN lab result is unknown KT/V PRESCRIBED 2024-09-14 15:39:54 F Unable to calculate: Pre BUN lab result is unknown Residual kt/v 2024-09-14 15:39:54 F Unable to calculate: Pre BUN lab result is unknown PATIENT AGE 2024-09-14 15:39:54 33 Years F TOTAL HOURS/WEEK DIALYSIS 2024-09-14 15:39:54 9 hrs F WEIGHT - POST DAY 1 2024-09-14 15:39:54 110 kg F WEIGHT (KG) 2024-09-14 15:39:54 107 kg F VT (KT/V TX VOL) 2024-09-14 15:39:54 F Unable to calculate: Pre BUN lab result is unknown Urea nitrogen [Mass/volume] in Serum or Plasma --post dialysis 2024-09-14 15:38:10 14 mg/dL F 9.0-23.0 Urea nitrogen [Mass/volume] in Serum or Plasma --post dialysis 2024-09-14 15:38:10 14 mg/dL F 9.0-23.0 Urea nitrogen [Mass/volume] in Serum or Plasma 2024-09-14 15:34:11 F Recollect - Unsp un specimen Urea nitrogen [Mass/volume] in Serum or Plasma 2024-09-14 15:34:11 F Recollect - Unsp un specimen stdKt/V (DIAL) 2024-09-09 16:51:31 N/A F WEIGHT (KG) 2024-09-09 16:51:31 107 kg F PATIENT AGE 2024-09-09 16:51:31 33 Years F TBW ([facility]) 2024-09-09 16:51:31 42.22 Liters F stdKT/V Total 2024-09-09 16:51:31 N/A F PRESCRIBED DAYS/WEEK 2024-09-09 16:51:31 3 Day/Wk F VM (KT/V MEAN VOL) 2024-09-09 16:51:31 75 F KT/V PRESCRIBED 2024-09-09 16:51:31 1.3 F LENGTH OF DIALYSIS 2024-09-09 16:51:31 148 min F Std Renal KT/V 2024-09-09 16:51:31 N/A F spKt/V 2024-09-09 16:51:31 1.11 F CURRENT KRU 2024-09-09 16:51:31 F BSA [place] 2024-09-09 16:51:31 2.09 sq m F BLOOD FLOW-QWB 2024-09-09 16:51:31 399 F WEIGHT - POST DAY 1 2024-09-09 16:51:31 110.2 kg F DIALYZER FLOW-QD 2024-09-09 16:51:31 800 mL/min F AMPUTATE FACTOR 2024-09-09 16:51:31 0.065 F nPCR 2024-09-09 16:51:31 0.71 G/KG/D F TOTAL HOURS/WEEK DIALYSIS 2024-09-09 16:51:31 9 hrs F Dialyzer REJI 2024-09-09 16:51:31 1455 Calc F eKt/V 2024-09-09 16:51:31 0.9 F VT (KT/V TX VOL) 2024-09-09 16:51:31 40.3 L F Total Kt/V 2024-09-09 16:51:31 1.11 F URR% 2024-09-09 16:51:31 63 % F WEIGHT - PRE DAY 1 2024-09-09 16:51:31 112.1 kg F HEIGHT IN INCHES 2024-09-09 16:51:31 67 Inches F Residual kt/v 2024-09-09 16:51:31 F Total Kt/V 2024-09-09 16:51:31 1.11 F PRESCRIBED DAYS/WEEK 2024-09-09 16:51:31 3 Day/Wk F stdKt/V (DIAL) 2024-09-09 16:51:31 N/A F AMPUTATE FACTOR 2024-09-09 16:51:31 0.065 F WEIGHT - PRE DAY 1 2024-09-09 16:51:31 112.1 kg F nPCR 2024-09-09 16:51:31 0.71 G/KG/D F BLOOD FLOW-QWB 2024-09-09 16:51:31 399 F WEIGHT - POST DAY 1 2024-09-09 16:51:31 110.2 kg F DIALYZER FLOW-QD 2024-09-09 16:51:31 800 mL/min F LENGTH OF DIALYSIS 2024-09-09 16:51:31 148 min F PATIENT AGE 2024-09-09 16:51:31 33 Years F eKt/V 2024-09-09 16:51:31 0.9 F VM (KT/V MEAN VOL) 2024-09-09 16:51:31 75 F TOTAL HOURS/WEEK DIALYSIS 2024-09-09 16:51:31 9 hrs F spKt/V 2024-09-09 16:51:31 1.11 F TBW ([facility]) 2024-09-09 16:51:31 42.22 Liters F VT (KT/V TX VOL) 2024-09-09 16:51:31 40.3 L F CURRENT KRU 2024-09-09 16:51:31 F Dialyzer REJI 2024-09-09 16:51:31 1455 Calc F KT/V PRESCRIBED 2024-09-09 16:51:31 1.3 F stdKT/V Total 2024-09-09 16:51:31 N/A F URR% 2024-09-09 16:51:31 63 % F BSA [facility] 2024-09-09 16:51:31 2.09 sq m F HEIGHT IN INCHES 2024-09-09 16:51:31 67 Inches F WEIGHT (KG) 2024-09-09 16:51:31 107 kg F Std Renal KT/V 2024-09-09 16:51:31 N/A F Residual kt/v 2024-09-09 16:51:31 F Urea nitrogen [Mass/volume] in Serum or Plasma --post dialysis 2024-09-09 16:49:20 15 mg/dL F 9.0-23.0 Urea nitrogen [Mass/volume] in Serum or Plasma --post dialysis 2024-09-09 16:49:20 15 mg/dL F 9.0-23.0 Urea nitrogen [Mass/volume] in Serum or Plasma 2024-09-09 15:38:17 40 mg/dL F 9.0-23.0 Urea nitrogen [Mass/volume] in Serum or Plasma 2024-09-09 15:38:17 40 mg/dL F 9.0-23.0 Creatinine [Mass/volume] in Serum or Plasma 2024-08-26 13:41:16 4.65 mg/dL F 0.5-1.1 Creatinine [Mass/volume] in Serum or Plasma 2024-08-26 13:41:16 4.65 mg/dL F 0.5-1.1 stdKT/V Total 2024-08-19 03:41:01 2.58 F Std Renal KT/V 2024-08-19 03:41:01 F CURRENT KRU 2024-08-19 03:41:01 F PRESCRIBED DAYS/WEEK 2024-08-19 03:41:01 3 Day/Wk F LENGTH OF DIALYSIS 2024-08-19 03:41:01 207 min F eKt/V 2024-08-19 03:41:01 0.97 F BLOOD FLOW-QWB 2024-08-19 03:41:01 381 F spKt/V 2024-08-19 03:41:01 1.13 F TOTAL HOURS/WEEK DIALYSIS 2024-08-19 03:41:01 13 hrs F HEIGHT IN INCHES 2024-08-19 03:41:01 67 Inches F WEIGHT (KG) 2024-08-19 03:41:01 107 kg F AMPUTATE FACTOR 2024-08-19 03:41:01 0.065 F WEIGHT - POST DAY 1 2024-08-19 03:41:01 106.7 kg F WEIGHT - PRE DAY 1 2024-08-19 03:41:01 110.4 kg F URR% 2024-08-19 03:41:01 61 % F BSA [facility] 2024-08-19 03:41:01 2.09 sq m F VT (KT/V TX VOL) 2024-08-19 03:41:01 53.8 L F KT/V PRESCRIBED 2024-08-19 03:41:01 1.82 F Total Kt/V 2024-08-19 03:41:01 N/A F VM (KT/V MEAN VOL) 2024-08-19 03:41:01 75 F stdKt/V (DIAL) 2024-08-19 03:41:01 2.58 F PATIENT AGE 2024-08-19 03:41:01 33 Years F nPCR 2024-08-19 03:41:01 0.73 G/KG/D F DIALYZER FLOW-QD 2024-08-19 03:41:01 800 mL/min F Residual kt/v 2024-08-19 03:41:01 N/A F Dialyzer REJI 2024-08-19 03:41:01 1455 Calc F TBW ([facility]) 2024-08-19 03:41:01 41.36 Liters F Urea nitrogen [Mass/volume] in Serum or Plasma 2024-08-19 03:39:16 33 mg/dL F 9.0-23.0 Urea nitrogen [Mass/volume] in Serum or Plasma --post dialysis 2024-08-18 17:57:17 13 mg/dL F 9.0-23.0 Creatinine [Mass/volume] in Serum or Plasma 2024-04-23 15:16:33 4.37 mg/dL F 0.5-1.1 Creatinine [Mass/volume] in Serum or Plasma 2024-03-26 15:15:29 3.97 mg/dL F 0.5-1.1 Creatinine [Mass/volume] in Serum or Plasma 2024-03-26 15:15:29 3.97 mg/dL F 0.5-1.1 BSA [facility] 2024-01-23 14:40:17 2.03 sq m F KRU-UREA CLR UR 2024-01-23 14:40:17 see comments F Unable to Calculate. BUN/CREAT 2024-01-23 14:40:17 10.4 Calc F 8.2-46.0 CRE CLR UR/BSA 2024-01-23 14:40:17 see comments F 75.0-115.0 Unable to Calculate. Creatinine [Mass/volume] in Serum or Plasma 2024-01-23 14:39:34 5 mg/dL F 0.5-1.1 Urea nitrogen [Mass/volume] in Serum or Plasma 2024-01-23 14:39:34 52 mg/dL F 9.0-23.0 HEIGHT IN INCHES 2024-01-22 20:44:27 67 Inches F BODY WEIGHT (LBS) 2024-01-22 20:44:27 200.4 lbs F KRU-UREA CLR UR 2024-01-02 22:09:52 6.47 mL/min F CRE CLR UR/BSA 2024-01-02 22:09:52 12 mL/min F 75.0-115.0 CRE CLR UR/BSA 2024-01-02 22:09:52 12 mL/min F 75.0-115.0 KRU-UREA CLR UR 2024-01-02 22:09:52 6.47 mL/min F Urea nitrogen [Mass/volume] in Urine 2024-01-02 22:09:32 220 mg/dL F Creatinine [Mass/volume] in Urine 2024-01-02 22:09:32 49.06 mg/dL F Creatinine [Mass/volume] in Urine 2024-01-02 22:09:32 49.06 mg/dL F Urea nitrogen [Mass/volume] in Urine 2024-01-02 22:09:32 220 mg/dL F TOTAL VOLUME-24 HR URINE 2024-01-01 21:00:15 1600 mL F TOTAL VOLUME-24 HR URINE 2024-01-01 21:00:15 1600 mL F AMPUTATE FACTOR 2024-01-01 21:00:14 0.065 F COLLECTION TIME FOR URINE 2024-01-01 21:00:14 1440 min F COLLECTION TIME FOR URINE 2024-01-01 21:00:14 1440 min F AMPUTATE FACTOR 2024-01-01 21:00:14 0.065 F BSA [facility] 2023-12-26 17:04:56 2 sq m F BUN/CREAT 2023-12-26 17:04:56 10.9 Calc F 8.2-46.0 BUN/CREAT 2023-12-26 17:04:56 10.9 Calc F 8.2-46.0 BSA [facility] 2023-12-26 17:04:56 2 sq m F Creatinine [Mass/volume] in Serum or Plasma 2023-12-26 17:04:51 3.84 mg/dL F 0.5-1.1 Urea nitrogen [Mass/volume] in Serum or Plasma 2023-12-26 17:04:51 42 mg/dL F 9.0-23.0 Creatinine [Mass/volume] in Serum or Plasma 2023-12-26 17:04:51 3.84 mg/dL F 0.5-1.1 Urea nitrogen [Mass/volume] in Serum or Plasma 2023-12-26 17:04:51 42 mg/dL F 9.0-23.0 HEIGHT IN INCHES 2023-12-25 21:19:36 67 Inches F BODY WEIGHT (LBS) 2023-12-25 21:19:36 194.9 lbs F BODY WEIGHT (LBS) 2023-12-25 21:19:36 194.9 lbs F HEIGHT IN INCHES 2023-12-25 21:19:36 67 Inches F KRU-UREA CLR UR 2023-12-03 16:08:09 6.05 mL/min F CRE CLR UR/BSA 2023-12-03 16:08:09 10 mL/min F 75.0-115.0 KRU-UREA CLR UR 2023-12-03 16:08:09 6.05 mL/min F CRE CLR UR/BSA 2023-12-03 16:08:09 10 mL/min F 75.0-115.0 Creatinine [Mass/volume] in Urine 2023-12-03 16:07:18 55.52 mg/dL F Urea nitrogen [Mass/volume] in Urine 2023-12-03 16:07:18 205 mg/dL F Creatinine [Mass/volume] in Urine 2023-12-03 16:07:18 55.52 mg/dL F Urea nitrogen [Mass/volume] in Urine 2023-12-03 16:07:18 205 mg/dL F TOTAL VOLUME-24 HR URINE 2023-12-02 22:04:51 1300 mL F TOTAL VOLUME-24 HR URINE 2023-12-02 22:04:51 1300 mL F AMPUTATE FACTOR 2023-12-02 22:04:49 0.065 F COLLECTION TIME FOR URINE 2023-12-02 22:04:49 1440 min F COLLECTION TIME FOR URINE 2023-12-02 22:04:49 1440 min F AMPUTATE FACTOR 2023-12-02 22:04:49 0.065 F BSA [place]ION 2023-11-26 21:27:59 1.97 sq m F BUN/CREAT 2023-11-26 21:27:59 8 Calc F 8.2-46.0 BUN/CREAT 2023-11-26 21:27:59 8 Calc F 8.2-46.0 BSA MARION 2023-11-26 21:27:59 1.97 sq m F Creatinine [Mass/volume] in Serum or Plasma 2023-11-26 21:27:45 4.27 mg/dL F 0.5-1.1 Urea nitrogen [Mass/volume] in Serum or Plasma 2023-11-26 21:27:45 34 mg/dL F 9.0-23.0 Urea nitrogen [Mass/volume] in Serum or Plasma 2023-11-26 21:27:45 34 mg/dL F 9.0-23.0 Creatinine [Mass/volume] in Serum or Plasma 2023-11-26 21:27:45 4.27 mg/dL F 0.5-1.1 BODY WEIGHT (LBS) 2023-11-25 21:02:39 187 lbs F HEIGHT IN INCHES 2023-11-25 21:02:39 67 Inches F HEIGHT IN INCHES 2023-11-25 21:02:39 67 Inches F BODY WEIGHT (LBS) 2023-11-25 21:02:39 187 lbs F CRE CLR UR/BSA 2023-10-24 14:14:52 see comments F 75.0-115.0 Unable to Calculate. KRU-UREA CLR UR 2023-10-24 14:14:52 see comments F Unable to Calculate. BUN/CREAT 2023-10-24 14:14:52 12.5 Calc F 8.2-46.0 CRE CLR UR/BSA 2023-10-24 14:14:52 see comments F 75.0-115.0 Unable to Calculate. BSA [place] 2023-10-24 14:14:52 0 sq m F BSA [place] 2023-10-24 14:14:52 0 sq m F KRU-UREA CLR UR 2023-10-24 14:14:52 see comments F Unable to Calculate. BUN/CREAT 2023-10-24 14:14:52 12.5 Calc F 8.2-46.0 Creatinine [Mass/volume] in Serum or Plasma 2023-10-24 14:14:33 3.11 mg/dL F 0.5-1.1 Urea nitrogen [Mass/volume] in Serum or Plasma 2023-10-24 14:14:33 39 mg/dL F 9.0-23.0 Creatinine [Mass/volume] in Serum or Plasma 2023-10-24 14:14:33 3.11 mg/dL F 0.5-1.1 Urea nitrogen [Mass/volume] in Serum or Plasma 2023-10-24 14:14:33 39 mg/dL F 9.0-23.0 HEIGHT IN INCHES 2023-10-24 08:15:42 67 Inches F BODY WEIGHT (LBS) 2023-10-24 08:15:42 0 lbs F HEIGHT IN INCHES 2023-10-24 08:15:42 67 Inches F BODY WEIGHT (LBS) 2023-10-24 08:15:42 0 lbs F BSA [place] 2023-09-20 00:41:56 1.98 sq m F KRU-UREA CLR UR 2023-09-20 00:41:56 0 mL/min F BUN/CREAT 2023-09-20 00:41:56 11.2 Calc F 8.2-46.0 CRE CLR UR/BSA 2023-09-20 00:41:56 0 mL/min F 75.0-115.0 BSA [place] 2023-09-20 00:41:56 1.98 sq m F CRE CLR UR/BSA 2023-09-20 00:41:56 0 mL/min F 75.0-115.0 KRU-UREA CLR UR 2023-09-20 00:41:56 0 mL/min F BUN/CREAT 2023-09-20 00:41:56 11.2 Calc F 8.2-46.0 Creatinine [Mass/volume] in Serum or Plasma 2023-09-20 00:41:46 2.68 mg/dL F 0.5-1.1 Urea nitrogen [Mass/volume] in Serum or Plasma 2023-09-20 00:41:46 30 mg/dL F 9.0-23.0 Creatinine [Mass/volume] in Serum or Plasma 2023-09-20 00:41:46 2.68 mg/dL F 0.5-1.1 Urea nitrogen [Mass/volume] in Serum or Plasma 2023-09-20 00:41:46 30 mg/dL F 9.0-23.0 BODY WEIGHT (LBS) 2023-09-18 21:10:25 189.2 lbs F COLLECTION TIME FOR URINE 2023-09-18 21:10:25 1440 min F HEIGHT IN INCHES 2023-09-18 21:10:25 67 Inches F TOTAL VOLUME-24 HR URINE 2023-09-18 21:10:25 0 mL F HEIGHT IN INCHES 2023-09-18 21:10:25 67 Inches F BODY WEIGHT (LBS) 2023-09-18 21:10:25 189.2 lbs F COLLECTION TIME FOR URINE 2023-09-18 21:10:25 1440 min F TOTAL VOLUME-24 HR URINE 2023-09-18 21:10:25 0 mL F WEIGHT (KG) 2023-08-29 19:00:46 127 kg F Residual kt/v 2023-08-29 19:00:46 F WEIGHT - POST DAY 1 2023-08-29 19:00:46 105.4 kg F nPCR 2023-08-29 19:00:46 0.22 G/KG/D F BLOOD FLOW-QWB 2023-08-29 19:00:46 374 F VT (KT/V TX VOL) 2023-08-29 19:00:46 82.9 L F spKt/V 2023-08-29 19:00:46 0.57 F stdKT/V Total 2023-08-29 19:00:46 N/A F PRESCRIBED DAYS/WEEK 2023-08-29 19:00:46 3 Day/Wk F CURRENT KRU 2023-08-29 19:00:46 F HEIGHT IN INCHES 2023-08-29 19:00:46 67 Inches F TBW ([facility]) 2023-08-29 19:00:46 43.69 Liters F Dialyzer REJI 2023-08-29 19:00:46 1218 Calc F KT/V PRESCRIBED 2023-08-29 19:00:46 1.2 F eKt/V 2023-08-29 19:00:46 0.51 F TOTAL HOURS/WEEK DIALYSIS 2023-08-29 19:00:46 3 hrs F BSA [place] 2023-08-29 19:00:46 2.33 sq m F LENGTH OF DIALYSIS 2023-08-29 19:00:46 182 min F Total Kt/V 2023-08-29 19:00:46 0.57 F WEIGHT - PRE DAY 1 2023-08-29 19:00:46 108.9 kg F stdKt/V (DIAL) 2023-08-29 19:00:46 N/A F PATIENT AGE 2023-08-29 19:00:46 32 Years F AMPUTATE FACTOR 2023-08-29 19:00:46 0 F DIALYZER FLOW-QD 2023-08-29 19:00:46 500 mL/min F URR% 2023-08-29 19:00:46 40 % F Std Renal KT/V 2023-08-29 19:00:46 N/A F VM (KT/V MEAN VOL) 2023-08-29 19:00:46 82.9 F KRU-UREA CLR UR 2023-08-28 16:30:49 0 mL/min F CRE CLR UR/BSA 2023-08-28 16:30:49 0 mL/min F 75.0-115.0 TOTAL VOLUME-24 HR URINE 2023-08-28 16:30:44 0 mL F BUN/CREAT 2023-08-27 15:21:40 7.1 Calc F 8.2-46.0 Creatinine [Mass/volume] in Serum or Plasma 2023-08-27 15:21:34 2.82 mg/dL F 0.5-1.1 Urea nitrogen [Mass/volume] in Serum or Plasma 2023-08-27 15:21:32 20 mg/dL F 9.0-23.0 Urea nitrogen [Mass/volume] in Serum or Plasma --post dialysis 2023-08-27 15:00:43 12 mg/dL F 9.0-23.0 BODY WEIGHT (LBS) 2023-08-26 20:37:30 105.4 lbs F Anemia Description Draw Date Result/Unit Status Ref Range Result Comments HCT CALC HGBX3 2024-11-06 17:07:03 38.1 % F 37.0-47.0 Erythrocyte distribution width [Ratio] by Automated count 2024-11-06 17:06:07 15.4 % F 11.0-15.0 MCH [Entitic mass] by Automated count 2024-11-06 17:06:07 30.3 pg F 25.9-34.2 MCV [Entitic volume] by Automated count 2024-11-06 17:06:07 100.3 fL F 80.0-100.0 Hematocrit [Volume Fraction] of Blood by Automated count 2024-11-06 17:06:07 42.2 % F 37.0-47.0 Erythrocytes [#/volume] in Blood by Automated count 2024-11-06 17:06:07 4.21 x 10'6 cells/uL F 3.85-5.2 Hemoglobin [Mass/volume] in Blood 2024-11-06 17:06:07 12.7 g/dL F 12.0-16.0 MCHC [Mass/volume] by Automated count 2024-11-06 17:06:07 30.2 g/dL F 29.6-35.3 Platelets [#/volume] in Blood by Automated count 2024-11-06 17:06:07 343 x 10^3 cells/uL F 140.0-450.0 HCT CALC HGBX3 2024-10-29 16:22:37 37.2 % F 37.0-47.0 Erythrocytes [#/volume] in Blood by Automated count 2024-10-29 16:21:16 4.17 x 10'6 cells/uL F 3.85-5.2 Erythrocyte distribution width [Ratio] by Automated count 2024-10-29 16:21:16 15.6 % F 11.0-15.0 MCHC [Mass/volume] by Automated count 2024-10-29 16:21:16 29.4 g/dL F 29.6-35.3 Hematocrit [Volume Fraction] of Blood by Automated count 2024-10-29 16:21:16 42.3 % F 37.0-47.0 MCH [Entitic mass] by Automated count 2024-10-29 16:21:15 29.8 pg F 25.9-34.2 Hemoglobin [Mass/volume] in Blood 2024-10-29 16:21:15 12.4 g/dL F 12.0-16.0 MCV [Entitic volume] by Automated count 2024-10-29 16:21:15 101.4 fL F 80.0-100.0 Platelets [#/volume] in Blood by Automated count 2024-10-29 16:21:15 336 x 10^3 cells/uL F 140.0-450.0 HCT CALC HGBX3 2024-10-21 15:19:58 36.6 % F 37.0-47.0 Erythrocytes [#/volume] in Blood by Automated count 2024-10-21 15:19:12 4.02 x 10'6 cells/uL F 3.85-5.2 Erythrocyte distribution width [Ratio] by Automated count 2024-10-21 15:19:12 15 % F 11.0-15.0 Hemoglobin [Mass/volume] in Blood 2024-10-21 15:19:12 12.2 g/dL F 12.0-16.0 MCH [Entitic mass] by Automated count 2024-10-21 15:19:12 30.4 pg F 25.9-34.2 MCV [Entitic volume] by Automated count 2024-10-21 15:19:12 102.9 fL F 80.0-100.0 Platelets [#/volume] in Blood by Automated count 2024-10-21 15:19:12 416 x 10^3 cells/uL F 140.0-450.0 MCHC [Mass/volume] by Automated count 2024-10-21 15:19:12 29.6 g/dL F 29.6-35.3 Hematocrit [Volume Fraction] of Blood by Automated count 2024-10-21 15:19:12 41.3 % F 37.0-47.0 HCT CALC HGBX3 2024-10-15 06:14:39 35.1 % F 37.0-47.0 MCH [Entitic mass] by Automated count 2024-10-15 06:13:20 31.7 pg F 25.9-34.2 MCV [Entitic volume] by Automated count 2024-10-15 06:13:20 104.9 fL F 80.0-100.0 Hemoglobin [Mass/volume] in Blood 2024-10-15 06:13:20 11.7 g/dL F 12.0-16.0 Erythrocytes [#/volume] in Blood by Automated count 2024-10-15 06:13:20 3.7 x 10'6 cells/uL F 3.85-5.2 MCHC [Mass/volume] by Automated count 2024-10-15 06:13:20 30.3 g/dL F 29.6-35.3 Platelets [#/volume] in Blood by Automated count 2024-10-15 06:13:20 365 x 10^3 cells/uL F 140.0-450.0 Hematocrit [Volume Fraction] of Blood by Automated count 2024-10-15 06:13:20 38.8 % F 37.0-47.0 Erythrocyte distribution width [Ratio] by Automated count 2024-10-15 06:13:20 16.1 % F 11.0-15.0 HCT CALC HGBX3 2024-10-08 15:30:17 35.7 % F 37.0-47.0 Erythrocytes [#/volume] in Blood by Automated count 2024-10-08 15:29:07 3.79 x 10'6 cells/uL F 3.85-5.2 Hemoglobin [Mass/volume] in Blood 2024-10-08 15:29:07 11.9 g/dL F 12.0-16.0 Erythrocyte distribution width [Ratio] by Automated count 2024-10-08 15:29:07 16.3 % F 11.0-15.0 MCH [Entitic mass] by Automated count 2024-10-08 15:29:07 31.4 pg F 25.9-34.2 MCHC [Mass/volume] by Automated count 2024-10-08 15:29:07 30.2 g/dL F 29.6-35.3 Hematocrit [Volume Fraction] of Blood by Automated count 2024-10-08 15:29:07 39.4 % F 37.0-47.0 MCV [Entitic volume] by Automated count 2024-10-08 15:29:07 104 fL F 80.0-100.0 Platelets [#/volume] in Blood by Automated count 2024-10-08 15:29:07 325 x 10^3 cells/uL F 140.0-450.0 HCT CALC HGBX3 2024-09-29 19:21:14 36 % F 37.0-47.0 Erythrocytes [#/volume] in Blood by Automated count 2024-09-29 19:20:20 3.99 x 10'6 cells/uL F 3.85-5.2 Erythrocyte distribution width [Ratio] by Automated count 2024-09-29 19:20:20 17.6 % F 11.0-15.0 MCH [Entitic mass] by Automated count 2024-09-29 19:20:20 30 pg F 25.9-34.2 Hemoglobin [Mass/volume] in Blood 2024-09-29 19:20:20 12 g/dL F 12.0-16.0 MCHC [Mass/volume] by Automated count 2024-09-29 19:20:20 30.6 g/dL F 29.6-35.3 Hematocrit [Volume Fraction] of Blood by Automated count 2024-09-29 19:20:20 39.2 % F 37.0-47.0 MCV [Entitic volume] by Automated count 2024-09-29 19:20:20 98.2 fL F 80.0-100.0 Platelets [#/volume] in Blood by Automated count 2024-09-29 19:20:20 446 x 10^3 cells/uL F 140.0-450.0 Ferritin [Mass/volume] in Serum or Plasma 2024-09-24 08:17:03 241 ng/mL F 10.0-291.0 Ferritin [Mass/volume] in Serum or Plasma 2024-09-24 08:17:03 241 ng/mL F 10.0-291.0 IRON SATURATION 2024-09-24 07:05:44 14 % F 16.0-46.0 TIBC 2024-09-24 07:05:44 241 ug/dL F 250.0-425.0 IRON SATURATION 2024-09-24 07:05:44 14 % F 16.0-46.0 TIBC 2024-09-24 07:05:44 241 ug/dL F 250.0-425.0 Iron [Mass/volume] in Serum or Plasma 2024-09-24 07:00:43 33 ug/dL F 50.0-170.0 Iron binding capacity.unsaturated [Mass/volume] in Serum or Plasma 2024-09-24 07:00:43 208 ug/dL F 80.0-375.0 Iron [Mass/volume] in Serum or Plasma 2024-09-24 07:00:43 33 ug/dL F 50.0-170.0 Iron binding capacity.unsaturated [Mass/volume] in Serum or Plasma 2024-09-24 07:00:43 208 ug/dL F 80.0-375.0 HCT CALC HGBX3 2024-09-23 17:06:46 34.2 % F 37.0-47.0 HCT CALC HGBX3 2024-09-23 17:06:46 34.2 % F 37.0-47.0 Erythrocytes [#/volume] in Blood by Automated count 2024-09-23 17:05:21 3.78 x 10'6 cells/uL F 3.85-5.2 Hemoglobin [Mass/volume] in Blood 2024-09-23 17:05:21 11.4 g/dL F 12.0-16.0 MCH [Entitic mass] by Automated count 2024-09-23 17:05:21 30.1 pg F 25.9-34.2 MCHC [Mass/volume] by Automated count 2024-09-23 17:05:21 30.1 g/dL F 29.6-35.3 Erythrocytes [#/volume] in Blood by Automated count 2024-09-23 17:05:21 3.78 x 10'6 cells/uL F 3.85-5.2 Hemoglobin [Mass/volume] in Blood 2024-09-23 17:05:21 11.4 g/dL F 12.0-16.0 MCH [Entitic mass] by Automated count 2024-09-23 17:05:21 30.1 pg F 25.9-34.2 MCHC [Mass/volume] by Automated count 2024-09-23 17:05:21 30.1 g/dL F 29.6-35.3 Erythrocyte distribution width [Ratio] by Automated count 2024-09-23 17:05:19 15.9 % F 11.0-15.0 Hematocrit [Volume Fraction] of Blood by Automated count 2024-09-23 17:05:19 37.8 % F 37.0-47.0 MCV [Entitic volume] by Automated count 2024-09-23 17:05:19 100 fL F 80.0-100.0 Platelets [#/volume] in Blood by Automated count 2024-09-23 17:05:19 398 x 10'3 cells/uL F 140.0-450.0 Hematocrit [Volume Fraction] of Blood by Automated count 2024-09-23 17:05:19 37.8 % F 37.0-47.0 MCV [Entitic volume] by Automated count 2024-09-23 17:05:19 100 fL F 80.0-100.0 Platelets [#/volume] in Blood by Automated count 2024-09-23 17:05:19 398 x 10^3 cells/uL F 140.0-450.0 Erythrocyte distribution width [Ratio] by Automated count 2024-09-23 17:05:19 15.9 % F 11.0-15.0 HCT CALC HGBX3 2024 22:44:43 30.9 % F 37.0-47.0 HCT CALC HGBX3 2024 22:44:43 30.9 % F 37.0-47.0 Erythrocytes [#/volume] in Blood by Automated count 2024 22:43:10 3.51 x 10'6 cells/uL F 3.85-5.2 Erythrocyte distribution width [Ratio] by Automated count 2024 22:43:10 17.9 % F 11.0-15.0 Hemoglobin [Mass/volume] in Blood 2024 22:43:10 10.3 g/dL F 12.0-16.0 MCH [Entitic mass] by Automated count 2024 22:43:10 29.5 pg F 25.9-34.2 MCHC [Mass/volume] by Automated count 2024 22:43:10 29.1 g/dL F 29.6-35.3 Hematocrit [Volume Fraction] of Blood by Automated count 2024 22:43:10 35.5 % F 37.0-47.0 MCV [Entitic volume] by Automated count 2024 22:43:10 101.2 fL F 80.0-100.0 Platelets [#/volume] in Blood by Automated count 2024 22:43:10 432 x 10'3 cells/uL F 140.0-450.0 Erythrocytes [#/volume] in Blood by Automated count 2024 22:43:10 3.51 x 10'6 cells/uL F 3.85-5.2 Platelets [#/volume] in Blood by Automated count 2024 22:43:10 432 x 10^3 cells/uL F 140.0-450.0 MCV [Entitic volume] by Automated count 2024 22:43:10 101.2 fL F 80.0-100.0 Erythrocyte distribution width [Ratio] by Automated count 2024 22:43:10 17.9 % F 11.0-15.0 MCH [Entitic mass] by Automated count 2024 22:43:10 29.5 pg F 25.9-34.2 MCHC [Mass/volume] by Automated count 2024 22:43:10 29.1 g/dL F 29.6-35.3 Hematocrit [Volume Fraction] of Blood by Automated count 2024 22:43:10 35.5 % F 37.0-47.0 Hemoglobin [Mass/volume] in Blood 2024 22:43:10 10.3 g/dL F 12.0-16.0 HCT CALC HGBX3 2024-09-09 20:33:54 29.4 % F 37.0-47.0 HCT CALC HGBX3 2024-09-09 20:33:54 29.4 % F 37.0-47.0 Erythrocytes [#/volume] in Blood by Automated count 2024-09-09 19:58:15 3.31 x 10'6 cells/uL F 3.85-5.2 Erythrocyte distribution width [Ratio] by Automated count 2024-09-09 19:58:15 15.7 % F 11.0-15.0 Hemoglobin [Mass/volume] in Blood 2024-09-09 19:58:15 9.8 g/dL F 12.0-16.0 MCH [Entitic mass] by Automated count 2024-09-09 19:58:15 29.6 pg F 25.9-34.2 MCHC [Mass/volume] by Automated count 2024-09-09 19:58:15 29.5 g/dL F 29.6-35.3 Hematocrit [Volume Fraction] of Blood by Automated count 2024-09-09 19:58:15 33.2 % F 37.0-47.0 Platelets [#/volume] in Blood by Automated count 2024-09-09 19:58:15 407 x 10'3 cells/uL F 140.0-450.0 MCV [Entitic volume] by Automated count 2024-09-09 19:58:15 100.2 fL F 80.0-100.0 Erythrocytes [#/volume] in Blood by Automated count 2024-09-09 19:58:15 3.31 x 10'6 cells/uL F 3.85-5.2 MCH [Entitic mass] by Automated count 2024-09-09 19:58:15 29.6 pg F 25.9-34.2 Erythrocyte distribution width [Ratio] by Automated count 2024-09-09 19:58:15 15.7 % F 11.0-15.0 Hemoglobin [Mass/volume] in Blood 2024-09-09 19:58:15 9.8 g/dL F 12.0-16.0 MCHC [Mass/volume] by Automated count 2024-09-09 19:58:15 29.5 g/dL F 29.6-35.3 Hematocrit [Volume Fraction] of Blood by Automated count 2024-09-09 19:58:15 33.2 % F 37.0-47.0 MCV [Entitic volume] by Automated count 2024-09-09 19:58:15 100.2 fL F 80.0-100.0 Platelets [#/volume] in Blood by Automated count 2024-09-09 19:58:15 407 x 10^3 cells/uL F 140.0-450.0 HCT CALC HGBX3 2024-09-05 00:44:19 27.9 % F 37.0-47.0 Erythrocytes [#/volume] in Blood by Automated count 2024-09-05 00:43:15 3.22 x 10'6 cells/uL F 3.85-5.2 Erythrocyte distribution width [Ratio] by Automated count 2024-09-05 00:43:15 16 % F 11.0-15.0 Hemoglobin [Mass/volume] in Blood 2024-09-05 00:43:15 9.3 g/dL F 12.0-16.0 MCH [Entitic mass] by Automated count 2024-09-05 00:43:15 29 pg F 25.9-34.2 MCHC [Mass/volume] by Automated count 2024-09-05 00:43:15 28.5 g/dL F 29.6-35.3 Hematocrit [Volume Fraction] of Blood by Automated count 2024-09-05 00:43:15 32.7 % F 37.0-47.0 MCV [Entitic volume] by Automated count 2024-09-05 00:43:15 101.6 fL F 80.0-100.0 Platelets [#/volume] in Blood by Automated count 2024-09-05 00:43:15 382 x 10^3 cells/uL F 140.0-450.0 Reticulocytes/100 erythrocytes in Blood by Automated count 2024-08-26 13:16:12 2.87 % F 0.7-2.5 ABSOLUTE RETIC COUNT 2024-08-26 13:16:12 0.092 x 10'6 cells/uL F 0.035-0.127 HCT CALC HGBX3 2024-08-26 13:10:16 27.6 % F 37.0-47.0 HCT CALC HGBX3 2024-08-26 13:10:16 27.6 % F 37.0-47.0 Erythrocytes [#/volume] in Blood by Automated count 2024-08-26 13:09:16 3.04 x 10'6 cells/uL F 3.85-5.2 Erythrocyte distribution width [Ratio] by Automated count 2024-08-26 13:09:16 16 % F 11.0-15.0 Hemoglobin [Mass/volume] in Blood 2024-08-26 13:09:16 9.2 g/dL F 12.0-16.0 MCH [Entitic mass] by Automated count 2024-08-26 13:09:16 30.2 pg F 25.9-34.2 MCHC [Mass/volume] by Automated count 2024-08-26 13:09:16 30.6 g/dL F 29.6-35.3 Hematocrit [Volume Fraction] of Blood by Automated count 2024-08-26 13:09:16 30 % F 37.0-47.0 MCV [Entitic volume] by Automated count 2024-08-26 13:09:16 98.4 fL F 80.0-100.0 Platelets [#/volume] in Blood by Automated count 2024-08-26 13:09:16 415 x 10'3 cells/uL F 140.0-450.0 MCHC [Mass/volume] by Automated count 2024-08-26 13:09:16 30.6 g/dL F 29.6-35.3 Platelets [#/volume] in Blood by Automated count 2024-08-26 13:09:16 415 x 10^3 cells/uL F 140.0-450.0 Erythrocytes [#/volume] in Blood by Automated count 2024-08-26 13:09:16 3.04 x 10'6 cells/uL F 3.85-5.2 Erythrocyte distribution width [Ratio] by Automated count 2024-08-26 13:09:16 16 % F 11.0-15.0 Hemoglobin [Mass/volume] in Blood 2024-08-26 13:09:16 9.2 g/dL F 12.0-16.0 MCH [Entitic mass] by Automated count 2024-08-26 13:09:16 30.2 pg F 25.9-34.2 Hematocrit [Volume Fraction] of Blood by Automated count 2024-08-26 13:09:16 30 % F 37.0-47.0 MCV [Entitic volume] by Automated count 2024-08-26 13:09:16 98.4 fL F 80.0-100.0 HCT CALC HGBX3 2024-08-17 14:51:01 27.9 % F 37.0-47.0 Hemoglobin [Mass/volume] in Blood 2024-08-17 14:50:13 9.3 g/dL F 12.0-16.0 HCT CALC HGBX3 2024-04-23 16:42:07 26.7 % F 37.0-47.0 Erythrocytes [#/volume] in Blood by Automated count 2024-04-23 16:41:34 2.94 x 10'6 cells/uL F 3.85-5.2 Erythrocyte distribution width [Ratio] by Automated count 2024-04-23 16:41:34 17.6 % F 11.0-15.0 Hemoglobin [Mass/volume] in Blood 2024-04-23 16:41:34 8.9 g/dL F 12.0-16.0 MCH [Entitic mass] by Automated count 2024-04-23 16:41:34 30.3 pg F 25.9-34.2 MCHC [Mass/volume] by Automated count 2024-04-23 16:41:34 29.2 g/dL F 29.6-35.3 Hematocrit [Volume Fraction] of Blood by Automated count 2024-04-23 16:41:34 30.5 % F 37.0-47.0 MCV [Entitic volume] by Automated count 2024-04-23 16:41:34 103.7 fL F 80.0-100.0 Platelets [#/volume] in Blood by Automated count 2024-04-23 16:41:34 498 x 10^3 cells/uL F 140.0-450.0 IRON SATURATION 2024-03-27 04:22:00 14 % F 16.0-46.0 TIBC 2024-03-27 04:22:00 191 ug/dL F 250.0-425.0 TIBC 2024-03-27 04:22:00 191 ug/dL F 250.0-425.0 IRON SATURATION 2024-03-27 04:22:00 14 % F 16.0-46.0 Iron [Mass/volume] in Serum or Plasma 2024-03-27 04:17:59 27 ug/dL F 50.0-170.0 Iron binding capacity.unsaturated [Mass/volume] in Serum or Plasma 2024-03-27 04:17:59 164 ug/dL F 80.0-375.0 Iron [Mass/volume] in Serum or Plasma 2024-03-27 04:17:59 27 ug/dL F 50.0-170.0 Iron binding capacity.unsaturated [Mass/volume] in Serum or Plasma 2024-03-27 04:17:59 164 ug/dL F 80.0-375.0 Ferritin [Mass/volume] in Serum or Plasma 2024-03-26 17:30:39 269 ng/mL F 10.0-291.0 Ferritin [Mass/volume] in Serum or Plasma 2024-03-26 17:30:39 269 ng/mL F 10.0-291.0 HCT CALC HGBX3 2024-03-26 13:50:34 24.9 % F 37.0-47.0 HCT CALC HGBX3 2024-03-26 13:50:34 24.9 % F 37.0-47.0 Erythrocytes [#/volume] in Blood by Automated count 2024-03-26 13:49:33 2.77 x 10'6 cells/uL F 3.85-5.2 Hemoglobin [Mass/volume] in Blood 2024-03-26 13:49:33 8.3 g/dL F 12.0-16.0 MCHC [Mass/volume] by Automated count 2024-03-26 13:49:33 29.4 g/dL F 29.6-35.3 MCH [Entitic mass] by Automated count 2024-03-26 13:49:33 30.1 pg F 25.9-34.2 Hematocrit [Volume Fraction] of Blood by Automated count 2024-03-26 13:49:33 28.4 % F 37.0-47.0 MCV [Entitic volume] by Automated count 2024-03-26 13:49:33 102.5 fL F 80.0-100.0 Erythrocytes [#/volume] in Blood by Automated count 2024-03-26 13:49:33 2.77 x 10'6 cells/uL F 3.85-5.2 Hemoglobin [Mass/volume] in Blood 2024-03-26 13:49:33 8.3 g/dL F 12.0-16.0 MCH [Entitic mass] by Automated count 2024-03-26 13:49:33 30.1 pg F 25.9-34.2 MCHC [Mass/volume] by Automated count 2024-03-26 13:49:33 29.4 g/dL F 29.6-35.3 Hematocrit [Volume Fraction] of Blood by Automated count 2024-03-26 13:49:33 28.4 % F 37.0-47.0 MCV [Entitic volume] by Automated count 2024-03-26 13:49:33 102.5 fL F 80.0-100.0 Erythrocyte distribution width [Ratio] by Automated count 2024-03-26 13:49:31 17.5 % F 11.0-15.0 Platelets [#/volume] in Blood by Automated count 2024-03-26 13:49:31 337 x 10'3 cells/uL F 140.0-450.0 Erythrocyte distribution width [Ratio] by Automated count 2024-03-26 13:49:31 17.5 % F 11.0-15.0 Platelets [#/volume] in Blood by Automated count 2024-03-26 13:49:31 337 x 10^3 cells/uL F 140.0-450.0 IRON SATURATION 2024-03-18 06:18:14 15 % F 16.0-46.0 TIBC 2024-03-18 06:18:14 188 ug/dL F 250.0-425.0 Iron binding capacity.unsaturated [Mass/volume] in Serum or Plasma 2024-03-18 06:17:16 159 ug/dL F 80.0-375.0 Ferritin [Mass/volume] in Serum or Plasma 2024-03-18 05:45:13 289 ng/mL F 10.0-291.0 Iron [Mass/volume] in Serum or Plasma 2024-03-18 05:34:06 29 ug/dL F 50.0-170.0 HCT CALC HGBX3 2024-03-17 16:22:46 24.9 % F 37.0-47.0 Hemoglobin [Mass/volume] in Blood 2024-03-17 16:22:32 8.3 g/dL F 12.0-16.0 HCT CALC HGBX3 2024-01-23 18:17:00 27 % F 37.0-47.0 Hemoglobin [Mass/volume] in Blood 2024-01-23 18:16:40 9 g/dL F 12.0-16.0 IRON SATURATION 2023-12-26 22:35:07 27 % F 16.0-46.0 TIBC 2023-12-26 22:35:07 230 ug/dL F 250.0-425.0 TIBC 2023-12-26 22:35:07 230 ug/dL F 250.0-425.0 IRON SATURATION 2023-12-26 22:35:07 27 % F 16.0-46.0 Iron [Mass/volume] in Serum or Plasma 2023-12-26 22:33:51 62 ug/dL F 50.0-170.0 Iron binding capacity.unsaturated [Mass/volume] in Serum or Plasma 2023-12-26 22:33:51 168 ug/dL F 80.0-375.0 Iron binding capacity.unsaturated [Mass/volume] in Serum or Plasma 2023-12-26 22:33:51 168 ug/dL F 80.0-375.0 Iron [Mass/volume] in Serum or Plasma 2023-12-26 22:33:51 62 ug/dL F 50.0-170.0 Ferritin [Mass/volume] in Serum or Plasma 2023-12-26 20:22:53 323 ng/mL F 10.0-291.0 Ferritin [Mass/volume] in Serum or Plasma 2023-12-26 20:22:53 323 ng/mL F 10.0-291.0 HCT CALC HGBX3 2023-12-26 15:16:33 31.8 % F 37.0-47.0 HCT CALC HGBX3 2023-12-26 15:16:33 31.8 % F 37.0-47.0 Hemoglobin [Mass/volume] in Blood 2023-12-26 15:16:05 10.6 g/dL F 12.0-16.0 Hemoglobin [Mass/volume] in Blood 2023-12-26 15:16:05 10.6 g/dL F 12.0-16.0 HCT CALC HGBX3 2023-11-27 02:37:35 32.7 % F 37.0-47.0 HCT CALC HGBX3 2023-11-27 02:37:35 32.7 % F 37.0-47.0 Hemoglobin [Mass/volume] in Blood 2023-11-27 02:37:18 10.9 g/dL F 12.0-16.0 Hemoglobin [Mass/volume] in Blood 2023-11-27 02:37:18 10.9 g/dL F 12.0-16.0 HCT CALC HGBX3 2023-10-24 18:14:48 32.7 % F 37.0-47.0 HCT CALC HGBX3 2023-10-24 18:14:48 32.7 % F 37.0-47.0 Hemoglobin [Mass/volume] in Blood 2023-10-24 18:14:37 10.9 g/dL F 12.0-16.0 Hemoglobin [Mass/volume] in Blood 2023-10-24 18:14:37 10.9 g/dL F 12.0-16.0 IRON SATURATION 2023-09-20 05:28:47 24 % F 16.0-46.0 TIBC 2023-09-20 05:28:47 306 ug/dL F 250.0-425.0 IRON SATURATION 2023-09-20 05:28:47 24 % F 16.0-46.0 TIBC 2023-09-20 05:28:47 306 ug/dL F 250.0-425.0 Iron [Mass/volume] in Serum or Plasma 2023-09-20 05:17:38 74 ug/dL F 50.0-170.0 Iron binding capacity.unsaturated [Mass/volume] in Serum or Plasma 2023-09-20 05:17:38 232 ug/dL F 80.0-375.0 Iron [Mass/volume] in Serum or Plasma 2023-09-20 05:17:38 74 ug/dL F 50.0-170.0 Iron binding capacity.unsaturated [Mass/volume] in Serum or Plasma 2023-09-20 05:17:38 232 ug/dL F 80.0-375.0 Ferritin [Mass/volume] in Serum or Plasma 2023-09-20 03:16:19 140 ng/mL F 10.0-291.0 Ferritin [Mass/volume] in Serum or Plasma 2023-09-20 03:16:19 140 ng/mL F 10.0-291.0 HCT CALC HGBX3 2023-09-19 20:12:54 30.6 % F 37.0-47.0 HCT CALC HGBX3 2023-09-19 20:12:54 30.6 % F 37.0-47.0 Hemoglobin [Mass/volume] in Blood 2023-09-19 20:11:47 10.2 g/dL F 12.0-16.0 Hemoglobin [Mass/volume] in Blood 2023-09-19 20:11:47 10.2 g/dL F 12.0-16.0 IRON SATURATION 2023-08-28 04:34:14 41 % F 16.0-46.0 TIBC 2023-08-28 04:34:14 258 ug/dL F 250.0-425.0 Iron [Mass/volume] in Serum or Plasma 2023-08-28 04:33:18 106 ug/dL F 50.0-170.0 Iron binding capacity.unsaturated [Mass/volume] in Serum or Plasma 2023-08-28 04:33:18 152 ug/dL F 80.0-375.0 HCT CALC HGBX3 2023-08-27 17:46:47 27.3 % F 37.0-47.0 Reticulocytes/100 erythrocytes in Blood by Automated count 2023-08-27 17:46:39 6.55 % F 0.7-2.5 Hemoglobin [Mass/volume] in Blood 2023-08-27 17:46:37 9.1 g/dL F 12.0-16.0 Hematocrit [Volume Fraction] of Blood by Automated count 2023-08-27 17:46:37 29.3 % F 37.0-47.0 FluidBP Description Draw Date Result/Unit Status Ref Range Result Comments Sodium [Moles/volume] in Serum or Plasma 2024-10-21 20:22:00 131 mEq/L F 132.0-146.0 Sodium [Moles/volume] in Serum or Plasma 2024-09-24 07:00:43 133 mEq/L F 132.0-146.0 Sodium [Moles/volume] in Serum or Plasma 2024-09-24 07:00:43 133 mEq/L F 132.0-146.0 Sodium [Moles/volume] in Serum or Plasma 2024-08-26 21:51:40 136 mEq/L F 132.0-146.0 Sodium [Moles/volume] in Serum or Plasma 2024-08-26 21:51:40 136 mEq/L F 132.0-146.0 Sodium [Moles/volume] in Serum or Plasma 2024-04-24 03:40:10 136 mEq/L F 132.0-146.0 Sodium [Moles/volume] in Serum or Plasma 2024-03-27 04:17:59 140 mEq/L F 132.0-146.0 Sodium [Moles/volume] in Serum or Plasma 2024-03-27 04:17:59 140 mEq/L F 132.0-146.0 Sodium [Moles/volume] in Serum or Plasma 2024-01-24 02:00:16 134 mEq/L F 132.0-146.0 Sodium [Moles/volume] in Serum or Plasma 2023-12-26 22:33:51 137 mEq/L F 132.0-146.0 Sodium [Moles/volume] in Serum or Plasma 2023-12-26 22:33:51 137 mEq/L F 132.0-146.0 Sodium [Moles/volume] in Serum or Plasma 2023-11-27 06:32:14 138 mEq/L F 132.0-146.0 Sodium [Moles/volume] in Serum or Plasma 2023-11-27 06:32:14 138 mEq/L F 132.0-146.0 Sodium [Moles/volume] in Serum or Plasma 2023-10-25 05:40:32 137 mEq/L F 132.0-146.0 Sodium [Moles/volume] in Serum or Plasma 2023-10-25 05:40:32 137 mEq/L F 132.0-146.0 Sodium [Moles/volume] in Serum or Plasma 2023-09-20 00:41:46 142 mEq/L F 132.0-146.0 Sodium [Moles/volume] in Serum or Plasma 2023-09-20 00:41:46 142 mEq/L F 132.0-146.0 Sodium [Moles/volume] in Serum or Plasma 2023-08-27 15:21:32 144 mEq/L F 132.0-146.0 General Description Draw Date Result/Unit Status Ref Range Result Comments Chloride [Moles/volume] in Serum or Plasma 2024-10-21 20:22:00 105 mEq/L F 99.0-109.0 Aspartate aminotransferase [Enzymatic activity/volume] in Serum or Plasma 2024-10-21 15:05:28 9 U/L F 0.0-33.0 Alanine aminotransferase [Enzymatic activity/volume] in Serum or Plasma 2024-10-21 15:05:28 12 U/L F 10.0-49.0 Chloride [Moles/volume] in Serum or Plasma 2024-09-24 07:00:43 104 mEq/L F 99.0-109.0 Chloride [Moles/volume] in Serum or Plasma 2024-09-24 07:00:43 104 mEq/L F 99.0-109.0 Aluminum [Mass/volume] in Serum or Plasma 2024-09-23 16:56:54 10 ug/L F 0.0-9.0 Aluminum [Mass/volume] in Serum or Plasma 2024-09-23 16:56:54 10 ug/L F 0.0-9.0 Aspartate aminotransferase [Enzymatic activity/volume] in Serum or Plasma 2024-09-23 14:10:14 14 U/L F 0.0-33.0 Alanine aminotransferase [Enzymatic activity/volume] in Serum or Plasma 2024-09-23 14:10:14 13 U/L F 10.0-49.0 Aspartate aminotransferase [Enzymatic activity/volume] in Serum or Plasma 2024-09-23 14:10:14 14 U/L F 0.0-33.0 Alanine aminotransferase [Enzymatic activity/volume] in Serum or Plasma 2024-09-23 14:10:14 13 U/L F 10.0-49.0 Chloride [Moles/volume] in Serum or Plasma 2024-08-26 21:51:40 107 mEq/L F 99.0-109.0 Chloride [Moles/volume] in Serum or Plasma 2024-08-26 21:51:40 107 mEq/L F 99.0-109.0 Aspartate aminotransferase [Enzymatic activity/volume] in Serum or Plasma 2024-08-26 13:41:16 9 U/L F 0.0-33.0 Alanine aminotransferase [Enzymatic activity/volume] in Serum or Plasma 2024-08-26 13:41:16 10 U/L F 10.0-49.0 Aspartate aminotransferase [Enzymatic activity/volume] in Serum or Plasma 2024-08-26 13:41:16 9 U/L F 0.0-33.0 Alanine aminotransferase [Enzymatic activity/volume] in Serum or Plasma 2024-08-26 13:41:16 10 U/L F 10.0-49.0 Chloride [Moles/volume] in Serum or Plasma 2024-04-24 03:40:10 109 mEq/L F 99.0-109.0 Aspartate aminotransferase [Enzymatic activity/volume] in Serum or Plasma 2024-04-23 15:16:33 13 U/L F 0.0-33.0 Alanine aminotransferase [Enzymatic activity/volume] in Serum or Plasma 2024-04-23 15:16:33 11 U/L F 10.0-49.0 Chloride [Moles/volume] in Serum or Plasma 2024-03-27 04:17:59 110 mEq/L F 99.0-109.0 Chloride [Moles/volume] in Serum or Plasma 2024-03-27 04:17:59 110 mEq/L F 99.0-109.0 Aspartate aminotransferase [Enzymatic activity/volume] in Serum or Plasma 2024-03-26 15:15:29 12 U/L F 0.0-33.0 Alanine aminotransferase [Enzymatic activity/volume] in Serum or Plasma 2024-03-26 15:15:29 15 U/L F 10.0-49.0 Aspartate aminotransferase [Enzymatic activity/volume] in Serum or Plasma 2024-03-26 15:15:29 12 U/L F 0.0-33.0 Alanine aminotransferase [Enzymatic activity/volume] in Serum or Plasma 2024-03-26 15:15:29 15 U/L F 10.0-49.0 Chloride [Moles/volume] in Serum or Plasma 2024-01-24 02:00:16 104 mEq/L F 99.0-109.0 Alanine aminotransferase [Enzymatic activity/volume] in Serum or Plasma 2024-01-23 14:39:34 53 U/L F 10.0-49.0 Chloride [Moles/volume] in Serum or Plasma 2023-12-26 22:33:51 106 mEq/L F 99.0-109.0 Chloride [Moles/volume] in Serum or Plasma 2023-12-26 22:33:51 106 mEq/L F 99.0-109.0 Alanine aminotransferase [Enzymatic activity/volume] in Serum or Plasma 2023-12-26 17:04:51 64 U/L F 10.0-49.0 Alanine aminotransferase [Enzymatic activity/volume] in Serum or Plasma 2023-12-26 17:04:51 64 U/L F 10.0-49.0 Alanine aminotransferase [Enzymatic activity/volume] in Serum or Plasma 2023-11-26 21:27:45 30 U/L F 10.0-49.0 Alanine aminotransferase [Enzymatic activity/volume] in Serum or Plasma 2023-11-26 21:27:45 30 U/L F 10.0-49.0 Chloride [Moles/volume] in Serum or Plasma 2023-10-25 05:40:32 108 mEq/L F 99.0-109.0 Chloride [Moles/volume] in Serum or Plasma 2023-10-25 05:40:32 108 mEq/L F 99.0-109.0 Alanine aminotransferase [Enzymatic activity/volume] in Serum or Plasma 2023-10-24 14:14:33 22 U/L F 10.0-49.0 Alanine aminotransferase [Enzymatic activity/volume] in Serum or Plasma 2023-10-24 14:14:33 22 U/L F 10.0-49.0 Alanine aminotransferase [Enzymatic activity/volume] in Serum or Plasma 2023-09-20 00:41:46 84 U/L F 10.0-49.0 Chloride [Moles/volume] in Serum or Plasma 2023-09-20 00:41:46 108 mEq/L F 99.0-109.0 Chloride [Moles/volume] in Serum or Plasma 2023-09-20 00:41:46 108 mEq/L F 99.0-109.0 Alanine aminotransferase [Enzymatic activity/volume] in Serum or Plasma 2023-09-20 00:41:46 84 U/L F 10.0-49.0 Aluminum [Mass/volume] in Serum or Plasma 2023-08-27 17:55:46 10 ug/L F 0.0-9.0 Chloride [Moles/volume] in Serum or Plasma 2023-08-27 15:21:34 107 mEq/L F 99.0-109.0 Alanine aminotransferase [Enzymatic activity/volume] in Serum or Plasma 2023-08-27 15:21:32 156 U/L F 10.0-49.0 InfectionVaccination Description Draw Date Result/Unit Status Ref Range Result Comments Lymphocytes/100 leukocytes in Blood by Automated count 2024-11-06 17:06:07 20.8 % F Eosinophils/100 leukocytes in Blood by Automated count 2024-11-06 17:06:07 6.4 % F Basophils/100 leukocytes in Blood by Automated count 2024-11-06 17:06:07 0.8 % F Leukocytes [#/volume] in Blood by Automated count 2024-11-06 17:06:07 10.1 x 10^3 cells/uL F 4.0-11.0 Monocytes/100 leukocytes in Blood by Automated count 2024-11-06 17:06:07 5.2 % F Eosinophils [#/volume] in Blood by Automated count 2024-11-06 17:06:07 644 Cells/uL F 0.0-700.0 Lymphocytes [#/volume] in Blood by Automated count 2024-11-06 17:06:07 2095 Cells/uL F 620.0-3660.0 Neutrophils [#/volume] in Blood by Automated count 2024-11-06 17:06:07 6737 Cells/uL F 2000.0-8800.0 Neutrophils/100 leukocytes in Blood by Automated count 2024-11-06 17:06:07 66.9 % F Monocytes [#/volume] in Blood by Automated count 2024-11-06 17:06:07 524 Cells/uL F 0.0-1100.0 Basophils [#/volume] in Blood by Automated count 2024-11-06 17:06:07 81 Cells/uL F 0.0-400.0 Eosinophils/100 leukocytes in Blood by Automated count 2024-10-29 16:21:16 6.5 % F Leukocytes [#/volume] in Blood by Automated count 2024-10-29 16:21:16 9.7 x 10^3 cells/uL F 4.0-11.0 Eosinophils [#/volume] in Blood by Automated count 2024-10-29 16:21:16 629 Cells/uL F 0.0-700.0 Basophils/100 leukocytes in Blood by Automated count 2024-10-29 16:21:16 0.5 % F Basophils [#/volume] in Blood by Automated count 2024-10-29 16:21:16 48 Cells/uL F 0.0-400.0 Monocytes [#/volume] in Blood by Automated count 2024-10-29 16:21:16 619 Cells/uL F 0.0-1100.0 Neutrophils [#/volume] in Blood by Automated count 2024-10-29 16:21:16 5570 Cells/uL F 2000.0-8800.0 Neutrophils/100 leukocytes in Blood by Automated count 2024-10-29 16:21:15 57.6 % F Lymphocytes/100 leukocytes in Blood by Automated count 2024-10-29 16:21:15 29 % F Monocytes/100 leukocytes in Blood by Automated count 2024-10-29 16:21:15 6.4 % F Lymphocytes [#/volume] in Blood by Automated count 2024-10-29 16:21:15 2804 Cells/uL F 620.0-3660.0 Basophils/100 leukocytes in Blood by Automated count 2024-10-21 15:19:12 0.5 % F Lymphocytes/100 leukocytes in Blood by Automated count 2024-10-21 15:19:12 34.8 % F Leukocytes [#/volume] in Blood by Automated count 2024-10-21 15:19:12 11.1 x 10^3 cells/uL F 4.0-11.0 Eosinophils [#/volume] in Blood by Automated count 2024-10-21 15:19:12 697 Cells/uL F 0.0-700.0 Monocytes [#/volume] in Blood by Automated count 2024-10-21 15:19:12 796 Cells/uL F 0.0-1100.0 Neutrophils [#/volume] in Blood by Automated count 2024-10-21 15:19:12 5663 Cells/uL F 2000.0-8800.0 Neutrophils/100 leukocytes in Blood by Automated count 2024-10-21 15:19:12 51.2 % F Monocytes/100 leukocytes in Blood by Automated count 2024-10-21 15:19:12 7.2 % F Eosinophils/100 leukocytes in Blood by Automated count 2024-10-21 15:19:12 6.3 % F Basophils [#/volume] in Blood by Automated count 2024-10-21 15:19:12 55 Cells/uL F 0.0-400.0 Lymphocytes [#/volume] in Blood by Automated count 2024-10-21 15:19:12 3849 Cells/uL F 620.0-3660.0 Neutrophils/100 leukocytes in Blood by Automated count 2024-10-15 06:13:20 61.5 % F Lymphocytes [#/volume] in Blood by Automated count 2024-10-15 06:13:20 2408 Cells/uL F 620.0-3660.0 Monocytes [#/volume] in Blood by Automated count 2024-10-15 06:13:20 654 Cells/uL F 0.0-1100.0 Neutrophils [#/volume] in Blood by Automated count 2024-10-15 06:13:20 6095 Cells/uL F 2000.0-8800.0 Leukocytes [#/volume] in Blood by Automated count 2024-10-15 06:13:20 9.9 x 10^3 cells/uL F 4.0-11.0 Eosinophils [#/volume] in Blood by Automated count 2024-10-15 06:13:20 684 Cells/uL F 0.0-700.0 Eosinophils/100 leukocytes in Blood by Automated count 2024-10-15 06:13:20 6.9 % F Lymphocytes/100 leukocytes in Blood by Automated count 2024-10-15 06:13:20 24.3 % F Basophils [#/volume] in Blood by Automated count 2024-10-15 06:13:20 69 Cells/uL F 0.0-400.0 Monocytes/100 leukocytes in Blood by Automated count 2024-10-15 06:13:20 6.6 % F Basophils/100 leukocytes in Blood by Automated count 2024-10-15 06:13:20 0.7 % F Lymphocytes/100 leukocytes in Blood by Automated count 2024-10-08 15:29:07 33.2 % F Monocytes/100 leukocytes in Blood by Automated count 2024-10-08 15:29:07 4.9 % F Basophils/100 leukocytes in Blood by Automated count 2024-10-08 15:29:07 0.8 % F Eosinophils/100 leukocytes in Blood by Automated count 2024-10-08 15:29:07 5.3 % F Neutrophils/100 leukocytes in Blood by Automated count 2024-10-08 15:29:07 55.9 % F Leukocytes [#/volume] in Blood by Automated count 2024-10-08 15:29:07 8.9 x 10^3 cells/uL F 4.0-11.0 Basophils [#/volume] in Blood by Automated count 2024-10-08 15:29:07 71 Cells/uL F 0.0-400.0 Eosinophils [#/volume] in Blood by Automated count 2024-10-08 15:29:07 471 Cells/uL F 0.0-700.0 Monocytes [#/volume] in Blood by Automated count 2024-10-08 15:29:07 435 Cells/uL F 0.0-1100.0 Neutrophils [#/volume] in Blood by Automated count 2024-10-08 15:29:07 4964 Cells/uL F 2000.0-8800.0 Lymphocytes [#/volume] in Blood by Automated count 2024-10-08 15:29:07 2948 Cells/uL F 620.0-3660.0 Monocytes/100 leukocytes in Blood by Automated count 2024-09-29 19:20:20 5.5 % F Neutrophils/100 leukocytes in Blood by Automated count 2024-09-29 19:20:20 61.2 % F Basophils/100 leukocytes in Blood by Automated count 2024-09-29 19:20:20 1.8 % F Lymphocytes/100 leukocytes in Blood by Automated count 2024-09-29 19:20:20 23.8 % F Eosinophils/100 leukocytes in Blood by Automated count 2024-09-29 19:20:20 7.6 % F Leukocytes [#/volume] in Blood by Automated count 2024-09-29 19:20:20 10.1 x 10^3 cells/uL F 4.0-11.0 Basophils [#/volume] in Blood by Automated count 2024-09-29 19:20:20 182 Cells/uL F 0.0-400.0 Eosinophils [#/volume] in Blood by Automated count 2024-09-29 19:20:20 768 Cells/uL F 0.0-700.0 Monocytes [#/volume] in Blood by Automated count 2024-09-29 19:20:20 556 Cells/uL F 0.0-1100.0 Lymphocytes [#/volume] in Blood by Automated count 2024-09-29 19:20:20 2406 Cells/uL F 620.0-3660.0 Neutrophils [#/volume] in Blood by Automated count 2024-09-29 19:20:20 6187 Cells/uL F 2000.0-8800.0 Lymphocytes/100 leukocytes in Blood by Automated count 2024-09-23 17:05:21 30.8 % F Eosinophils/100 leukocytes in Blood by Automated count 2024-09-23 17:05:21 8.6 % F Basophils/100 leukocytes in Blood by Automated count 2024-09-23 17:05:21 0.6 % F Basophils [#/volume] in Blood by Automated count 2024-09-23 17:05:21 54 Cells/uL F 0.0-400.0 Eosinophils [#/volume] in Blood by Automated count 2024-09-23 17:05:21 777 Cells/uL F 0.0-700.0 Lymphocytes [#/volume] in Blood by Automated count 2024-09-23 17:05:21 2781 Cells/uL F 620.0-3660.0 Lymphocytes/100 leukocytes in Blood by Automated count 2024-09-23 17:05:21 30.8 % F Basophils/100 leukocytes in Blood by Automated count 2024-09-23 17:05:21 0.6 % F Eosinophils/100 leukocytes in Blood by Automated count 2024-09-23 17:05:21 8.6 % F Basophils [#/volume] in Blood by Automated count 2024-09-23 17:05:21 54 Cells/uL F 0.0-400.0 Lymphocytes [#/volume] in Blood by Automated count 2024-09-23 17:05:21 2781 Cells/uL F 620.0-3660.0 Eosinophils [#/volume] in Blood by Automated count 2024-09-23 17:05:21 777 Cells/uL F 0.0-700.0 Monocytes/100 leukocytes in Blood by Automated count 2024-09-23 17:05:19 6.6 % F Neutrophils/100 leukocytes in Blood by Automated count 2024-09-23 17:05:19 53.5 % F Leukocytes [#/volume] in Blood by Automated count 2024-09-23 17:05:19 9 x 10'3 cells/uL F 4.0-11.0 Monocytes [#/volume] in Blood by Automated count 2024-09-23 17:05:19 596 Cells/uL F 0.0-1100.0 Neutrophils [#/volume] in Blood by Automated count 2024-09-23 17:05:19 4831 Cells/uL F 2000.0-8800.0 Monocytes/100 leukocytes in Blood by Automated count 2024-09-23 17:05:19 6.6 % F Neutrophils/100 leukocytes in Blood by Automated count 2024-09-23 17:05:19 53.5 % F Leukocytes [#/volume] in Blood by Automated count 2024-09-23 17:05:19 9 x 10^3 cells/uL F 4.0-11.0 Monocytes [#/volume] in Blood by Automated count 2024-09-23 17:05:19 596 Cells/uL F 0.0-1100.0 Neutrophils [#/volume] in Blood by Automated count 2024-09-23 17:05:19 4831 Cells/uL F 2000.0-8800.0 Eosinophils/100 leukocytes in Blood by Automated count 2024 22:43:10 10.8 % F Lymphocytes/100 leukocytes in Blood by Automated count 2024 22:43:10 30.5 % F Basophils/100 leukocytes in Blood by Automated count 2024 22:43:10 1 % F Neutrophils/100 leukocytes in Blood by Automated count 2024 22:43:10 51.5 % F Monocytes/100 leukocytes in Blood by Automated count 2024 22:43:10 6.3 % F Leukocytes [#/volume] in Blood by Automated count 2024 22:43:10 7.8 x 10'3 cells/uL F 4.0-11.0 Basophils [#/volume] in Blood by Automated count 2024 22:43:10 78 Cells/uL F 0.0-400.0 Eosinophils [#/volume] in Blood by Automated count 2024 22:43:10 838 Cells/uL F 0.0-700.0 Monocytes [#/volume] in Blood by Automated count 2024 22:43:10 489 Cells/uL F 0.0-1100.0 Lymphocytes [#/volume] in Blood by Automated count 2024 22:43:10 2367 Cells/uL F 620.0-3660.0 Neutrophils [#/volume] in Blood by Automated count 2024 22:43:10 3996 Cells/uL F 2000.0-8800.0 Monocytes/100 leukocytes in Blood by Automated count 2024 22:43:10 6.3 % F Eosinophils/100 leukocytes in Blood by Automated count 2024 22:43:10 10.8 % F Basophils/100 leukocytes in Blood by Automated count 2024 22:43:10 1 % F Basophils [#/volume] in Blood by Automated count 2024 22:43:10 78 Cells/uL F 0.0-400.0 Monocytes [#/volume] in Blood by Automated count 2024 22:43:10 489 Cells/uL F 0.0-1100.0 Neutrophils/100 leukocytes in Blood by Automated count 2024 22:43:10 51.5 % F Lymphocytes/100 leukocytes in Blood by Automated count 2024 22:43:10 30.5 % F Leukocytes [#/volume] in Blood by Automated count 2024 22:43:10 7.8 x 10^3 cells/uL F 4.0-11.0 Eosinophils [#/volume] in Blood by Automated count 2024 22:43:10 838 Cells/uL F 0.0-700.0 Lymphocytes [#/volume] in Blood by Automated count 2024 22:43:10 2367 Cells/uL F 620.0-3660.0 Neutrophils [#/volume] in Blood by Automated count 2024 22:43:10 3996 Cells/uL F 2000.0-8800.0 Eosinophils/100 leukocytes in Blood by Automated count 2024-09-09 19:58:15 6.1 % F Basophils/100 leukocytes in Blood by Automated count 2024-09-09 19:58:15 0.5 % F Neutrophils/100 leukocytes in Blood by Automated count 2024-09-09 19:58:15 60.6 % F Lymphocytes/100 leukocytes in Blood by Automated count 2024-09-09 19:58:15 27.7 % F Monocytes/100 leukocytes in Blood by Automated count 2024-09-09 19:58:15 5.1 % F Leukocytes [#/volume] in Blood by Automated count 2024-09-09 19:58:15 11 x 10'3 cells/uL F 4.0-11.0 Basophils [#/volume] in Blood by Automated count 2024-09-09 19:58:15 55 Cells/uL F 0.0-400.0 Eosinophils [#/volume] in Blood by Automated count 2024-09-09 19:58:15 670 Cells/uL F 0.0-700.0 Monocytes [#/volume] in Blood by Automated count 2024-09-09 19:58:15 560 Cells/uL F 0.0-1100.0 Lymphocytes [#/volume] in Blood by Automated count 2024-09-09 19:58:15 3041 Cells/uL F 620.0-3660.0 Neutrophils [#/volume] in Blood by Automated count 2024-09-09 19:58:15 6654 Cells/uL F 2000.0-8800.0 Eosinophils/100 leukocytes in Blood by Automated count 2024-09-09 19:58:15 6.1 % F Lymphocytes/100 leukocytes in Blood by Automated count 2024-09-09 19:58:15 27.7 % F Basophils/100 leukocytes in Blood by Automated count 2024-09-09 19:58:15 0.5 % F Leukocytes [#/volume] in Blood by Automated count 2024-09-09 19:58:15 11 x 10^3 cells/uL F 4.0-11.0 Basophils [#/volume] in Blood by Automated count 2024-09-09 19:58:15 55 Cells/uL F 0.0-400.0 Monocytes [#/volume] in Blood by Automated count 2024-09-09 19:58:15 560 Cells/uL F 0.0-1100.0 Lymphocytes [#/volume] in Blood by Automated count 2024-09-09 19:58:15 3041 Cells/uL F 620.0-3660.0 Monocytes/100 leukocytes in Blood by Automated count 2024-09-09 19:58:15 5.1 % F Neutrophils/100 leukocytes in Blood by Automated count 2024-09-09 19:58:15 60.6 % F Eosinophils [#/volume] in Blood by Automated count 2024-09-09 19:58:15 670 Cells/uL F 0.0-700.0 Neutrophils [#/volume] in Blood by Automated count 2024-09-09 19:58:15 6654 Cells/uL F 2000.0-8800.0 Neutrophils/100 leukocytes in Blood by Automated count 2024-09-05 00:43:15 64.3 % F Basophils/100 leukocytes in Blood by Automated count 2024-09-05 00:43:15 0.5 % F Monocytes/100 leukocytes in Blood by Automated count 2024-09-05 00:43:15 5.1 % F Lymphocytes/100 leukocytes in Blood by Automated count 2024-09-05 00:43:15 22.2 % F Eosinophils/100 leukocytes in Blood by Automated count 2024-09-05 00:43:15 7.8 % F Leukocytes [#/volume] in Blood by Automated count 2024-09-05 00:43:15 11.2 x 10^3 cells/uL F 4.0-11.0 Basophils [#/volume] in Blood by Automated count 2024-09-05 00:43:15 56 Cells/uL F 0.0-400.0 Eosinophils [#/volume] in Blood by Automated count 2024-09-05 00:43:15 870 Cells/uL F 0.0-700.0 Monocytes [#/volume] in Blood by Automated count 2024-09-05 00:43:15 569 Cells/uL F 0.0-1100.0 Lymphocytes [#/volume] in Blood by Automated count 2024-09-05 00:43:15 2475 Cells/uL F 620.0-3660.0 Neutrophils [#/volume] in Blood by Automated count 2024-09-05 00:43:15 7169 Cells/uL F 2000.0-8800.0 Eosinophils/100 leukocytes in Blood by Automated count 2024-08-26 13:09:16 8.1 % F Monocytes/100 leukocytes in Blood by Automated count 2024-08-26 13:09:16 5.3 % F Neutrophils/100 leukocytes in Blood by Automated count 2024-08-26 13:09:16 69.5 % F Basophils/100 leukocytes in Blood by Automated count 2024-08-26 13:09:16 0.3 % F Leukocytes [#/volume] in Blood by Automated count 2024-08-26 13:09:16 15 x 10'3 cells/uL F 4.0-11.0 Monocytes [#/volume] in Blood by Automated count 2024-08-26 13:09:16 793 Cells/uL F 0.0-1100.0 Lymphocytes [#/volume] in Blood by Automated count 2024-08-26 13:09:16 2515 Cells/uL F 620.0-3660.0 Neutrophils [#/volume] in Blood by Automated count 2024-08-26 13:09:16 34432 Cells/uL F 2000.0-8800.0 Eosinophils/100 leukocytes in Blood by Automated count 2024-08-26 13:09:16 8.1 % F Monocytes/100 leukocytes in Blood by Automated count 2024-08-26 13:09:16 5.3 % F Leukocytes [#/volume] in Blood by Automated count 2024-08-26 13:09:16 15 x 10^3 cells/uL F 4.0-11.0 Monocytes [#/volume] in Blood by Automated count 2024-08-26 13:09:16 793 Cells/uL F 0.0-1100.0 Basophils/100 leukocytes in Blood by Automated count 2024-08-26 13:09:16 0.3 % F Neutrophils/100 leukocytes in Blood by Automated count 2024-08-26 13:09:16 69.5 % F Lymphocytes [#/volume] in Blood by Automated count 2024-08-26 13:09:16 2515 Cells/uL F 620.0-3660.0 Neutrophils [#/volume] in Blood by Automated count 2024-08-26 13:09:16 28324 Cells/uL F 2000.0-8800.0 Lymphocytes/100 leukocytes in Blood by Automated count 2024-08-26 13:09:15 16.8 % F Basophils [#/volume] in Blood by Automated count 2024-08-26 13:09:15 45 Cells/uL F 0.0-400.0 Eosinophils [#/volume] in Blood by Automated count 2024-08-26 13:09:15 1213 Cells/uL F 0.0-700.0 Lymphocytes/100 leukocytes in Blood by Automated count 2024-08-26 13:09:15 16.8 % F Eosinophils [#/volume] in Blood by Automated count 2024-08-26 13:09:15 1213 Cells/uL F 0.0-700.0 Basophils [#/volume] in Blood by Automated count 2024-08-26 13:09:15 45 Cells/uL F 0.0-400.0 Eosinophils/100 leukocytes in Blood by Automated count 2024-04-23 16:41:34 9.2 % F Basophils/100 leukocytes in Blood by Automated count 2024-04-23 16:41:34 0.4 % F Lymphocytes/100 leukocytes in Blood by Automated count 2024-04-23 16:41:34 19.1 % F Neutrophils/100 leukocytes in Blood by Automated count 2024-04-23 16:41:34 63.6 % F Monocytes/100 leukocytes in Blood by Automated count 2024-04-23 16:41:34 7.7 % F Leukocytes [#/volume] in Blood by Automated count 2024-04-23 16:41:34 10.4 x 10^3 cells/uL F 4.0-11.0 Basophils [#/volume] in Blood by Automated count 2024-04-23 16:41:34 42 Cell/uL F 0.0-400.0 Eosinophils [#/volume] in Blood by Automated count 2024-04-23 16:41:34 959 Cell/uL F 0.0-700.0 Monocytes [#/volume] in Blood by Automated count 2024-04-23 16:41:34 802 Cell/uL F 0.0-1100.0 Lymphocytes [#/volume] in Blood by Automated count 2024-04-23 16:41:34 1990 Cell/uL F 620.0-3660.0 Neutrophils [#/volume] in Blood by Automated count 2024-04-23 16:41:34 6627 Cell/uL F 2000.0-8800.0 Lymphocytes/100 leukocytes in Blood by Automated count 2024-03-26 13:49:33 18.2 % F Monocytes/100 leukocytes in Blood by Automated count 2024-03-26 13:49:33 4.6 % F Neutrophils/100 leukocytes in Blood by Automated count 2024-03-26 13:49:33 53.7 % F Basophils/100 leukocytes in Blood by Automated count 2024-03-26 13:49:33 0.3 % F Eosinophils/100 leukocytes in Blood by Automated count 2024-03-26 13:49:33 23.3 % F Leukocytes [#/volume] in Blood by Automated count 2024-03-26 13:49:33 12.6 x 10'3 cells/uL F 4.0-11.0 Eosinophils [#/volume] in Blood by Automated count 2024-03-26 13:49:33 2936 Cell/uL F 0.0-700.0 Basophils [#/volume] in Blood by Automated count 2024-03-26 13:49:33 38 Cell/uL F 0.0-400.0 Monocytes [#/volume] in Blood by Automated count 2024-03-26 13:49:33 580 Cell/uL F 0.0-1100.0 Lymphocytes [#/volume] in Blood by Automated count 2024-03-26 13:49:33 2293 Cell/uL F 620.0-3660.0 Neutrophils [#/volume] in Blood by Automated count 2024-03-26 13:49:33 6766 Cell/uL F 2000.0-8800.0 Eosinophils/100 leukocytes in Blood by Automated count 2024-03-26 13:49:33 23.3 % F Eosinophils [#/volume] in Blood by Automated count 2024-03-26 13:49:33 2936 Cell/uL F 0.0-700.0 Leukocytes [#/volume] in Blood by Automated count 2024-03-26 13:49:33 12.6 x 10^3 cells/uL F 4.0-11.0 Monocytes [#/volume] in Blood by Automated count 2024-03-26 13:49:33 580 Cell/uL F 0.0-1100.0 Neutrophils [#/volume] in Blood by Automated count 2024-03-26 13:49:33 6766 Cell/uL F 2000.0-8800.0 Neutrophils/100 leukocytes in Blood by Automated count 2024-03-26 13:49:33 53.7 % F Monocytes/100 leukocytes in Blood by Automated count 2024-03-26 13:49:33 4.6 % F Lymphocytes/100 leukocytes in Blood by Automated count 2024-03-26 13:49:33 18.2 % F Basophils/100 leukocytes in Blood by Automated count 2024-03-26 13:49:33 0.3 % F Basophils [#/volume] in Blood by Automated count 2024-03-26 13:49:33 38 Cell/uL F 0.0-400.0 Lymphocytes [#/volume] in Blood by Automated count 2024-03-26 13:49:33 2293 Cell/uL F 620.0-3660.0 Phosphate [Mass/volume] in Urine MineralBone Disorder Description Draw Date Result/Unit Status Ref Range Result Comments Parathyrin.intact [Mass/volume] in Serum or Plasma 2024-11-17 08:22:09 386 pg/mL F 18.0-80.0 Alkaline phosphatase [Enzymatic activity/volume] in Serum or Plasma 2024-10-21 15:05:28 191 U/L F 46.0-116.0 CA CORRECTED 2024-10-08 08:45:20 8.2 mg/dL F CA*PO4 CORRCTD 2024-10-08 08:44:16 63.6 Calc F 21.0-53.0 CA/PHOS PRODUCT 2024-10-08 08:44:16 59.3 Calc F 21.0-53.0 Calcium [Mass/volume] in Serum or Plasma 2024-10-08 07:25:25 7.6 mg/dL F 8.7-10.4 Parathyrin.intact [Mass/volume] in Serum or Plasma 2024-10-08 03:57:19 371 pg/mL F 18.0-80.0 Phosphate [Mass/volume] in Serum or Plasma 2024-10-08 00:03:20 7.8 mg/dL F 2.4-5.1 25-Hydroxyvitamin D3+25-Hydroxyvitamin D2 [Mass/volume] in Serum or Plasma 2024-09-24 08:17:04 14 ng/mL F 25-Hydroxyvitamin D3+25-Hydroxyvitamin D2 [Mass/volume] in Serum or Plasma 2024-09-24 08:17:04 14 ng/mL F Alkaline phosphatase [Enzymatic activity/volume] in Serum or Plasma 2024-09-23 14:10:14 187 U/L F 46.0-116.0 Alkaline phosphatase [Enzymatic activity/volume] in Serum or Plasma 2024-09-23 14:10:14 187 U/L F 46.0-116.0 CA CORRECTED 2024-09-10 04:32:45 8.5 mg/dL F CA CORRECTED 2024-09-10 04:32:45 8.5 mg/dL F CA*PO4 CORRCTD 2024-09-10 04:32:19 47.8 Calc F 21.0-53.0 CA/PHOS PRODUCT 2024-09-10 04:32:19 44.2 Calc F 21.0-53.0 CA*PO4 CORRCTD 2024-09-10 04:32:19 47.8 Calc F 21.0-53.0 CA/PHOS PRODUCT 2024-09-10 04:32:19 44.2 Calc F 21.0-53.0 Calcium [Mass/volume] in Serum or Plasma 2024-09-10 04:29:11 7.9 mg/dL F 8.7-10.4 Calcium [Mass/volume] in Serum or Plasma 2024-09-10 04:29:11 7.9 mg/dL F 8.7-10.4 Parathyrin.intact [Mass/volume] in Serum or Plasma 2024-09-09 16:16:23 428 pg/mL F 18.0-80.0 Parathyrin.intact [Mass/volume] in Serum or Plasma 2024-09-09 16:16:23 428 pg/mL F 18.0-80.0 Phosphate [Mass/volume] in Serum or Plasma 2024-09-09 15:38:17 5.6 mg/dL F 2.4-5.1 Phosphate [Mass/volume] in Serum or Plasma 2024-09-09 15:38:17 5.6 mg/dL F 2.4-5.1 Alkaline phosphatase [Enzymatic activity/volume] in Serum or Plasma 2024-08-26 13:41:16 203 U/L F 46.0-116.0 Alkaline phosphatase [Enzymatic activity/volume] in Serum or Plasma 2024-08-26 13:41:16 203 U/L F 46.0-116.0 CA CORRECTED 2024-08-19 09:15:21 8.7 mg/dL F CA*PO4 CORRCTD 2024-08-19 07:40:58 43.5 Calc F 21.0-53.0 CA/PHOS PRODUCT 2024-08-19 07:40:58 40.5 Calc F 21.0-53.0 Calcium [Mass/volume] in Serum or Plasma 2024-08-19 07:16:49 8.1 mg/dL F 8.7-10.4 Phosphate [Mass/volume] in Serum or Plasma 2024-08-19 03:39:16 5 mg/dL F 2.4-5.1 Parathyrin.intact [Mass/volume] in Serum or Plasma 2024-08-17 16:52:26 241 pg/mL F 18.0-80.0 Alkaline phosphatase [Enzymatic activity/volume] in Serum or Plasma 2024-04-23 15:16:33 120 U/L F 46.0-116.0 25-Hydroxyvitamin D3+25-Hydroxyvitamin D2 [Mass/volume] in Serum or Plasma 2024-03-26 17:33:17 28.1 ng/mL F 25-Hydroxyvitamin D3+25-Hydroxyvitamin D2 [Mass/volume] in Serum or Plasma 2024-03-26 17:33:17 28.1 ng/mL F Alkaline phosphatase [Enzymatic activity/volume] in Serum or Plasma 2024-03-26 15:15:29 108 U/L F 46.0-116.0 Alkaline phosphatase [Enzymatic activity/volume] in Serum or Plasma 2024-03-26 15:15:29 108 U/L F 46.0-116.0 Parathyrin.intact [Mass/volume] in Serum or Plasma 2024-03-18 05:45:13 218 pg/mL F 18.0-80.0 CA CORRECTED 2024-03-18 05:37:54 F Unable to Calcul ate CA*PO4 CORRCTD 2024-03-18 05:35:30 57.6 Calc F 21.0-53.0 CA/PHOS PRODUCT 2024-03-18 05:35:30 51.2 Calc F 21.0-53.0 Calcium [Mass/volume] in Serum or Plasma 2024-03-18 05:34:09 8 mg/dL F 8.7-10.4 Phosphate [Mass/volume] in Serum or Plasma 2024-03-17 16:39:34 6.4 mg/dL F 2.4-5.1 25-Hydroxyvitamin D3+25-Hydroxyvitamin D2 [Mass/volume] in Serum or Plasma 2023-12-27 03:22:05 12.5 ng/mL F 25-Hydroxyvitamin D3+25-Hydroxyvitamin D2 [Mass/volume] in Serum or Plasma 2023-12-27 03:22:05 12.5 ng/mL F Parathyrin.intact [Mass/volume] in Serum or Plasma 2023-09-20 03:16:19 39 pg/mL F 18.0-80.0 Parathyrin.intact [Mass/volume] in Serum or Plasma 2023-09-20 03:16:19 39 pg/mL F 18.0-80.0 CA CORRECTED 2023-08-28 04:36:08 9.5 mg/dL F CA/PHOS PRODUCT 2023-08-28 04:34:14 45.8 Calc F 21.0-53.0 CA*PO4 CORRCTD 2023-08-28 04:34:14 49.4 Calc F 21.0-53.0 Calcium [Mass/volume] in Serum or Plasma 2023-08-28 04:33:18 8.8 mg/dL F 8.7-10.4 25-Hydroxyvitamin D3+25-Hydroxyvitamin D2 [Mass/volume] in Serum or Plasma 2023-08-27 21:41:34 13.5 ng/mL F Parathyrin.intact [Mass/volume] in Serum or Plasma 2023-08-27 21:40:35 58 pg/mL F 18.0-80.0 Phosphate [Mass/volume] in Serum or Plasma 2023-08-27 15:21:34 5.2 mg/dL F 2.4-5.1 Calcium [Mass/volume] in Serum or Plasma Phosphate [Mass/volume] in Serum or Plasma CA CORRECTED CA/PHOS PRODUCT CA*PO4 CORRCTD Nutrition Description Draw Date Result/Unit Status Ref Range Result Comments Potassium [Moles/volume] in Serum or Plasma 2024-10-21 20:22:00 6.5 mEq/L F 3.5-5.5 A/G RATIO 2024-10-21 15:16:12 1 Calc F 1.0-2.5 GLOBULIN 2024-10-21 15:16:12 3.4 g/dL F 0.9-5.0 Protein [Mass/volume] in Serum or Plasma 2024-10-21 15:05:30 6.8 g/dL F 5.7-8.2 Bicarbonate [Moles/volume] in Serum or Plasma 2024-10-21 15:05:30 17 mEq/L F 20.0-31.0 Albumin [Mass/volume] in Serum or Plasma by Bromocresol green (BCG) dye binding method 2024-10-21 15:05:28 3.4 g/dL F 3.4-4.8 Glucose [Mass/volume] in Serum or Plasma 2024-10-21 15:05:28 333 mg/dL F 70.0-99.0 Lactate dehydrogenase [Enzymatic activity/volume] in Serum or Plasma 2024-10-21 15:05:28 215 U/L F 120.0-246.0 Potassium [Moles/volume] in Serum or Plasma 2024-09-24 07:00:43 5.3 mEq/L F 3.5-5.5 Potassium [Moles/volume] in Serum or Plasma 2024-09-24 07:00:43 5.3 mEq/L F 3.5-5.5 GLOBULIN 2024-09-23 14:11:11 3.5 g/dL F 0.9-5.0 A/G RATIO 2024-09-23 14:11:11 0.9 Calc F 1.0-2.5 GLOBULIN 2024-09-23 14:11:11 3.5 g/dL F 0.9-5.0 A/G RATIO 2024-09-23 14:11:11 0.9 Calc F 1.0-2.5 Albumin [Mass/volume] in Serum or Plasma by Bromocresol green (BCG) dye binding method 2024-09-23 14:10:14 3.3 g/dL F 3.4-4.8 Protein [Mass/volume] in Serum or Plasma 2024-09-23 14:10:14 6.8 g/dL F 5.7-8.2 Bicarbonate [Moles/volume] in Serum or Plasma 2024-09-23 14:10:14 21 mEq/L F 20.0-31.0 Glucose [Mass/volume] in Serum or Plasma 2024-09-23 14:10:14 215 mg/dL F 70.0-99.0 Lactate dehydrogenase [Enzymatic activity/volume] in Serum or Plasma 2024-09-23 14:10:14 189 U/L F 120.0-246.0 Protein [Mass/volume] in Serum or Plasma 2024-09-23 14:10:14 6.8 g/dL F 5.7-8.2 Bicarbonate [Moles/volume] in Serum or Plasma 2024-09-23 14:10:14 21 mEq/L F 20.0-31.0 Albumin [Mass/volume] in Serum or Plasma by Bromocresol green (BCG) dye binding method 2024-09-23 14:10:14 3.3 g/dL F 3.4-4.8 Glucose [Mass/volume] in Serum or Plasma 2024-09-23 14:10:14 215 mg/dL F 70.0-99.0 Lactate dehydrogenase [Enzymatic activity/volume] in Serum or Plasma 2024-09-23 14:10:14 189 U/L F 120.0-246.0 Potassium [Moles/volume] in Serum or Plasma 2024-08-26 21:51:40 5 mEq/L F 3.5-5.5 Potassium [Moles/volume] in Serum or Plasma 2024-08-26 21:51:40 5 mEq/L F 3.5-5.5 GLOBULIN 2024-08-26 13:42:06 4.1 g/dL F 0.9-5.0 A/G RATIO 2024-08-26 13:42:06 0.8 Calc F 1.0-2.5 GLOBULIN 2024-08-26 13:42:06 4.1 g/dL F 0.9-5.0 A/G RATIO 2024-08-26 13:42:06 0.8 Calc F 1.0-2.5 Albumin [Mass/volume] in Serum or Plasma by Bromocresol green (BCG) dye binding method 2024-08-26 13:41:16 3.2 g/dL F 3.4-4.8 Protein [Mass/volume] in Serum or Plasma 2024-08-26 13:41:16 7.3 g/dL F 5.7-8.2 Bicarbonate [Moles/volume] in Serum or Plasma 2024-08-26 13:41:16 21 mEq/L F 20.0-31.0 Glucose [Mass/volume] in Serum or Plasma 2024-08-26 13:41:16 230 mg/dL F 70.0-99.0 Lactate dehydrogenase [Enzymatic activity/volume] in Serum or Plasma 2024-08-26 13:41:16 234 U/L F 120.0-246.0 Albumin [Mass/volume] in Serum or Plasma by Bromocresol green (BCG) dye binding method 2024-08-26 13:41:16 3.2 g/dL F 3.4-4.8 Protein [Mass/volume] in Serum or Plasma 2024-08-26 13:41:16 7.3 g/dL F 5.7-8.2 Bicarbonate [Moles/volume] in Serum or Plasma 2024-08-26 13:41:16 21 mEq/L F 20.0-31.0 Glucose [Mass/volume] in Serum or Plasma 2024-08-26 13:41:16 230 mg/dL F 70.0-99.0 Lactate dehydrogenase [Enzymatic activity/volume] in Serum or Plasma 2024-08-26 13:41:16 234 U/L F 120.0-246.0 Potassium [Moles/volume] in Serum or Plasma 2024-04-24 03:40:10 5.4 mEq/L F 3.5-5.5 A/G RATIO 2024-04-23 15:16:59 0.7 Calc F 1.0-2.5 GLOBULIN 2024-04-23 15:16:59 4 g/dL F 0.9-5.0 Albumin [Mass/volume] in Serum or Plasma by Bromocresol green (BCG) dye binding method 2024-04-23 15:16:33 2.9 g/dL F 3.4-4.8 Protein [Mass/volume] in Serum or Plasma 2024-04-23 15:16:33 6.9 g/dL F 5.7-8.2 Bicarbonate [Moles/volume] in Serum or Plasma 2024-04-23 15:16:33 22 mEq/L F 20.0-31.0 Glucose [Mass/volume] in Serum or Plasma 2024-04-23 15:16:33 179 mg/dL F 70.0-99.0 Lactate dehydrogenase [Enzymatic activity/volume] in Serum or Plasma 2024-04-23 15:16:33 197 U/L F 120.0-246.0 Potassium [Moles/volume] in Serum or Plasma 2024-03-27 04:17:59 4.8 mEq/L F 3.5-5.5 Potassium [Moles/volume] in Serum or Plasma 2024-03-27 04:17:59 4.8 mEq/L F 3.5-5.5 GLOBULIN 2024-03-26 15:15:40 4.6 g/dL F 0.9-5.0 A/G RATIO 2024-03-26 15:15:40 0.7 Calc F 1.0-2.5 A/G RATIO 2024-03-26 15:15:40 0.7 Calc F 1.0-2.5 GLOBULIN 2024-03-26 15:15:40 4.6 g/dL F 0.9-5.0 Protein [Mass/volume] in Serum or Plasma 2024-03-26 15:15:29 7.6 g/dL F 5.7-8.2 Albumin [Mass/volume] in Serum or Plasma by Bromocresol green (BCG) dye binding method 2024-03-26 15:15:29 3 g/dL F 3.4-4.8 Bicarbonate [Moles/volume] in Serum or Plasma 2024-03-26 15:15:29 21 mEq/L F 20.0-31.0 Glucose [Mass/volume] in Serum or Plasma 2024-03-26 15:15:29 92 mg/dL F 70.0-99.0 Lactate dehydrogenase [Enzymatic activity/volume] in Serum or Plasma 2024-03-26 15:15:29 218 U/L F 120.0-246.0 Albumin [Mass/volume] in Serum or Plasma by Bromocresol green (BCG) dye binding method 2024-03-26 15:15:29 3 g/dL F 3.4-4.8 Protein [Mass/volume] in Serum or Plasma 2024-03-26 15:15:29 7.6 g/dL F 5.7-8.2 Lactate dehydrogenase [Enzymatic activity/volume] in Serum or Plasma 2024-03-26 15:15:29 218 U/L F 120.0-246.0 Bicarbonate [Moles/volume] in Serum or Plasma 2024-03-26 15:15:29 21 mEq/L F 20.0-31.0 Glucose [Mass/volume] in Serum or Plasma 2024-03-26 15:15:29 92 mg/dL F 70.0-99.0 Potassium [Moles/volume] in Serum or Plasma 2024-01-24 02:00:16 6.1 mEq/L F 3.5-5.5 Albumin [Mass/volume] in Serum or Plasma by Bromocresol green (BCG) dye binding method 2024-01-23 14:39:34 2.7 g/dL F 3.4-4.8 Bicarbonate [Moles/volume] in Serum or Plasma 2024-01-23 14:39:34 21 mEq/L F 20.0-31.0 Glucose [Mass/volume] in Serum or Plasma 2024-01-23 14:39:34 150 mg/dL F 70.0-99.0 Potassium [Moles/volume] in Serum or Plasma 2023-12-26 22:33:51 5.5 mEq/L F 3.5-5.5 Potassium [Moles/volume] in Serum or Plasma 2023-12-26 22:33:51 5.5 mEq/L F 3.5-5.5 Albumin [Mass/volume] in Serum or Plasma by Bromocresol green (BCG) dye binding method 2023-12-26 17:04:51 2.9 g/dL F 3.4-4.8 Bicarbonate [Moles/volume] in Serum or Plasma 2023-12-26 17:04:51 20 mEq/L F 20.0-31.0 Glucose [Mass/volume] in Serum or Plasma 2023-12-26 17:04:51 301 mg/dL F 70.0-99.0 Albumin [Mass/volume] in Serum or Plasma by Bromocresol green (BCG) dye binding method 2023-12-26 17:04:51 2.9 g/dL F 3.4-4.8 Bicarbonate [Moles/volume] in Serum or Plasma 2023-12-26 17:04:51 20 mEq/L F 20.0-31.0 Glucose [Mass/volume] in Serum or Plasma 2023-12-26 17:04:51 301 mg/dL F 70.0-99.0 Albumin [Mass/volume] in Serum or Plasma by Bromocresol green (BCG) dye binding method 2023-11-26 21:27:45 3.1 g/dL F 3.4-4.8 Glucose [Mass/volume] in Serum or Plasma 2023-11-26 21:27:45 171 mg/dL F 70.0-99.0 Albumin [Mass/volume] in Serum or Plasma by Bromocresol green (BCG) dye binding method 2023-11-26 21:27:45 3.1 g/dL F 3.4-4.8 Glucose [Mass/volume] in Serum or Plasma 2023-11-26 21:27:45 171 mg/dL F 70.0-99.0 Potassium [Moles/volume] in Serum or Plasma 2023-10-25 05:40:32 4.5 mEq/L F 3.5-5.5 Potassium [Moles/volume] in Serum or Plasma 2023-10-25 05:40:32 4.5 mEq/L F 3.5-5.5 Bicarbonate [Moles/volume] in Serum or Plasma 2023-10-24 14:14:33 24 mEq/L F 20.0-31.0 Albumin [Mass/volume] in Serum or Plasma by Bromocresol green (BCG) dye binding method 2023-10-24 14:14:33 3 g/dL F 3.4-4.8 Glucose [Mass/volume] in Serum or Plasma 2023-10-24 14:14:33 95 mg/dL F 70.0-99.0 Bicarbonate [Moles/volume] in Serum or Plasma 2023-10-24 14:14:33 24 mEq/L F 20.0-31.0 Albumin [Mass/volume] in Serum or Plasma by Bromocresol green (BCG) dye binding method 2023-10-24 14:14:33 3 g/dL F 3.4-4.8 Glucose [Mass/volume] in Serum or Plasma 2023-10-24 14:14:33 95 mg/dL F 70.0-99.0 Potassium [Moles/volume] in Serum or Plasma 2023-09-20 00:41:46 5.1 mEq/L F 3.5-5.5 Albumin [Mass/volume] in Serum or Plasma by Bromocresol green (BCG) dye binding method 2023-09-20 00:41:46 3.1 g/dL F 3.4-4.8 Bicarbonate [Moles/volume] in Serum or Plasma 2023-09-20 00:41:46 23 mEq/L F 20.0-31.0 Glucose [Mass/volume] in Serum or Plasma 2023-09-20 00:41:46 173 mg/dL F 70.0-99.0 Albumin [Mass/volume] in Serum or Plasma by Bromocresol green (BCG) dye binding method 2023-09-20 00:41:46 3.1 g/dL F 3.4-4.8 Potassium [Moles/volume] in Serum or Plasma 2023-09-20 00:41:46 5.1 mEq/L F 3.5-5.5 Bicarbonate [Moles/volume] in Serum or Plasma 2023-09-20 00:41:46 23 mEq/L F 20.0-31.0 Glucose [Mass/volume] in Serum or Plasma 2023-09-20 00:41:46 173 mg/dL F 70.0-99.0 Bicarbonate [Moles/volume] in Serum or Plasma 2023-08-27 15:21:34 32 mEq/L F 20.0-31.0 Albumin [Mass/volume] in Serum or Plasma by Bromocresol green (BCG) dye binding method 2023-08-27 15:21:32 3.1 g/dL F 3.4-4.8 Potassium [Moles/volume] in Serum or Plasma 2023-08-27 15:21:32 4.5 mEq/L F 3.5-5.5 Glucose [Mass/volume] in Serum or Plasma 2023-08-27 15:21:32 114 mg/dL F 70.0-99.0 Encounters No encounter information to report Immunizations Ordered Immunization Name Filled Immunization Name Date Status Comments Refusal Reason TST-PPD intradermal 2024-06-24 19:15:00 TST-PPD intradermal 2023-08-28 19:25:10 Plan of Treatment Planned Activity Provider Planned Date Details Commen ts Diagnostic Test Pending [facility] 2024-03-09 13:53:19 Sodium [Moles/volume] in Serum or Plasma [code = 2951-2] Diagnostic Test Pending [facility] 2024-03-09 13:51:17 25-Hydroxyvitamin D3+25-Hydroxyvitamin D2 [Mass/volume] in Serum or Plasma [code = 62326-9] Diagnostic Test Pending [facility] 2024-03-09 13:51:00 Aluminum [Mass/volume] in Serum or Plasma [code = 5574-9] Diagnostic Test Pending [facility] 2024-03-09 13:54:40 Glucose [Mass/volume] in Serum or Plasma [code = 2345-7] Diagnostic Test Pending [facility] 2024-10-24 06:00:00 Hemoglobin [Mass/volume] in Blood [code = 718-7] Diagnostic Test Pending [facility] 2024-03-09 13:58:31 Creatinine [Mass/volume] in Serum or Plasma [code = 2160-0] Diagnostic Test Pending [facility] 2024-03-09 13:55:49 Albumin [Mass/volume] in Serum or Plasma by Bromocresol green (BCG) dye binding method [code = 11243-9] Diagnostic Test Pending [facility] 2024-03-10 06:36:05 Parathyrin.intact [Mass/volume] in Serum or Plasma [code = 2731-8] Diagnostic Test Pending [facility] 2024-03-20 06:38:26 Ferritin [Mass/volume] in Serum or Plasma [code = 2276-4] Diagnostic Test Pending [facility] 2024-03-10 06:34:08 Hemoglobin [Mass/volume] in Blood [code = 718-7] Diagnostic Test Pending [facility] 2024-05-03 05:00:00 Alanine aminotransferase [Enzymatic activity/volume] in Serum or Plasma [code = 1742-6] Diagnostic Test Pending [facility] 2024-10-05 20:25:50 In-Center Hemodialysis Treatment [code = FOV191]
--- OUTSIDE RECORDS SUMMARY | 2024-11-17 03:11 | XMS_ITS | Encounter Summary ---
Author Organization [facility] Address [address] [place] [address] Phone Care Team Providers Care Label Coder Name Role Phone Cherise Patrick Primary Care Provider Reason for Referral * Diagnostic Imaging (Routine) - Pending Review Specialty Diagnoses / Procedures Referred By Contac t Referred To Contact Diagnoses Traction detachment of both retinas Procedures B-SCAN ULTRASOUND 25224 - OS - LEFT EYE Nancie Hoyos MD [address] [place] [address] Phone: tel: fax: [facility] (All Locations) Referral ID Status Reason Start Date Expiration Date V isits Requested Visits Authorized [id number] Pending Review 11/01/2024 12/01/2025 1 1 STM[employer] BOSS * Diagnostic Imaging (Routine) - Pending Review Specialty Diagnoses / Procedures Referred By Contleah t Referred To Contact Diagnoses Traction detachment of both retinas Procedures B-SCAN ULTRASOUND 70815 - OD - RIGHT EYE Nancie Hoyos MD [address] [address] Phone: tel: fax: [facility] (All Locations) Referral ID Status Reason Start Date Expiration Date V isits Requested Visits Authorized [id number] Pending Review 11/01/2024 12/01/2025 1 1 [employer] BOSS Reason for Visit * Reason Comments Juvenile posterior subcapsular polar cat aract of both eyes Encounter Details Date Type Department Care Team (Late st Contact Info) Description 11/01/2024 1:20 PM CHRISTMAS [employer]OSS Office Visit [facility] Ophthalmology [address] [facility] 6th [place] [phone] Nancie Hoyos MD [address] [facility] [address] [place], [place] [id number] Traction detachment of both retinas (Primary Dx) Social History Tobacco Use Types [...] Never 04/16/2023 How often do you attend spiritism or adventism serv ices? Never 04/16/2023 Do you belong to any clubs o r organizations such as spiritism groups, unions, fraternal or athletic groups, or [...] medical appointments or from getting medications? No 06/1 02/2023 In the past 12 months, has l [...] slept in a retirement (including now)? 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 Vega Pt states OS has an aching pain if she touches her eye. OD has fol frequently. Ocular meds: None Last edited by Ayden Tubbs B.A. on 11/01/2024 1:23 PM. 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 In the left eye however there was disorganized contents, I am uncertain muchcan be done to improve the situation in this no light perception left eye. Regarding the right eye, she may benefit from scleral buckle, vitrectomy, membrane stripping, endolaser, gas versus silicone oil. The view to the retina is somewhat compromised due to the cataractouschanges. She could have cataract surgery 1st, in [...] both eyes, no guarantees were made, and theguarded prognosis was discussed with the patient. Reviewed [...] SB/PPV/MS/Laser/gas vs patria oil - Right eye. Other orders - B-SCAN ULTRASOUND 99700 - OD - RIGHT EYE - B-SCAN ULTRASOUND 71280 - OS - LEFT EYE B-SCAN ULTRASOUND 98688 - OD - RIGHT EYE Quality was good. Notes Total RD, near funnel B-SCAN ULTRASOUND 12198 - OS - LEFT EYE Quality was good. Notes disorganized The signs and symptoms of retinal detachment, tears, infection, elevated intra- ocular pressure werereviewed with the patient. Patient knows to call should they have any of the symptoms. PLAN FOR NEXT VISIT Follow-up and Dispositions Return for Surgery OD. 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 In the left eye however there was disorganized contents, I am uncertain muchcan be done to improve the situation in this no light perception left eye. Regarding the right eye, she may benefit from scleral buckle, vitrectomy, membrane stripping, endolaser, gas versus silicone oil. The view to the retina is somewhat compromised due to the cataractouschanges. She could have cataract surgery 1st, in [...] both eyes, no guarantees were made, and theguarded prognosis was discussed with the patient. 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 Plan: CE/IOL with Dr Vega, when stable post op from cataract surgery will consider SB/PPV/MS/Laser/gas vs patria oil - Right eye. STM[employer] CREW BOSS STM[employer] BOSS STM[employer] BOSS documented in this encounter Plan of Treatment Upcoming Encounters Date Type Department Care Team (Latest Contact Info) Description 01/10/2025 10:30 AM CDT Hospital Encounter [facility] ([facility]) [facility] [place] [address] Bita Vega MD [address] [place] [address] 01/10/2025 10:30 AM CDT - 01/10/2025 11:15 AM CDT Surgery [facility] ([facility]) [address] [place] [address] Bita Vega MD [address] [place] [address] EXTRACTION CATARACT - PHACOEMULSIFICATION AND LENS IMPLANT Scheduled Procedures Name Priority Associated Diagnoses Date/Ti me EXTRACTION CATARACT - PHACOEMULSIFICATION AND LENS IMPLANT 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 01/10/2025 10:30 AM CDT documented as of this encounter Procedures Procedure Name Priority Date/Time Associated Diagnosis Comments B-SCAN ULTRASOUND 67018 - OD - RIGHT EYE Routine 11/01/2024 2:15 PM [employer] Traction detachment of both retinas B-SCAN ULTRASOUND 19834 - OS - LEFT EYE Routine 11/01/2024 2:15 PM [employer] Traction detachment of both retinas documented in this encounter Results * B-SCAN ULTRASOUND 07488 - OD - RIGHT EYE (11/01/2024 2:15 PM CHRISTM[employer] BOSS) Anatomical Region Laterality Modality Head Ultrasound Narrative 11/01/2024 2:15 PM CHRISTMAS [employer] BOSS Quality was good. Notes Total RD, near funnel Nancie Hoyos MD OPH ULTRASOUND Final Res ult * B-SCAN ULTRASOUND 63556 - OS - LEFT EYE (11/01/2024 2:15 PM [employer] BOSS) Anatomical Region Laterality Modality Head Ultrasound Narrative 11/01/2024 2:15 PM CHRISTMAS [employer] BOSS Quality was good. Notes disorganized us Nancie Hoyos MD OPHTH ULTRASOUND Final Res ult documented in this encounter Visit Diagnoses Diagnosis Traction detachment of both retinas- Primary Traction detachment of retina 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 documented in this encounter Eye Exam Visual Acuity (Snellen - Linear) Right eye Left eye Dist sc LP NLP Tonometry (I-Care, 1:28 PM) Right eye Left eye Pressure 23 3 Pupils Dark Light Shape React Right eye 5 5 Irregular NR Left eye No View Visual Hernandez Right eye Left eye Restrictions Total superior tempo ral, inferior temporal, superior nasal, inferior nasal deficiencies Total superior temporal, inferior temporal, superior nasal, inferior nasal deficiencies Neuro/Psych Oriented x3: Yes Mood/Affect: Normal Dilation Both eyes: 1.0% Mydriacyl @ 1:28 PM External Exam Right eye Left eye External Normal Normal Slit Lamp Exam Right eye Left eye Lids/Lashes Normal Normal Conjunctiva/Sclera White and quiet White and peewee et Cornea Clear KNV Anterior Chamber Deep and quiet Deep and quiet Iris Round and reactive NV Lens 2+ Nuclear sclerosis , 3+ Posterior subcapsular cataract 4+ Nuclear sclerosis Fundus Exam Right eye Left eye Posterior Vitreous VH NO view Care Teams Label Coder Relationship Specialty Start Date End Date Cherise Patrick PA [address] [place] [address] PCP - General Physician Stitching Machine Operator 02/20/23 documented as of this encounter
--- OUTSIDE RECORDS SUMMARY | 2024-11-17 03:11 | XMS_ITS | Encounter Summary ---
Author Organization [facility] Address [address] [place] [address] Phone Care Team Providers Care Metal Sorter Name Role Phone Cherise Patrick Primary Care Provider [phone] Reason for Visit * Diagnostic Imaging (Routine) - Pending Review Specialty Diagnoses / Procedures Referred By Jany martinez Referred To Contact Diagnoses Eye exam, routine Procedures Ultrasound Immersion 49007 - OU - Both Eyes Bita Vega MD [address] [place] [address] Phone: tel: fax: [facility] (All Locations) Referral ID Status Reason Start Date Expiration Date V isits Requested Visits Authorized [id number] Pending Review 09/24/2024 10/24/2025 1 1 Encounter Details Date Type Department Care Team (Late st Contact Info) Description 09/24/2024 2:40 PM CAST SHELL GRINDER Imaging Exam [facility] Ophthalmology [address] [facility] 6th [place] [phone] Social History Tobacco Use Types Packs/Day Years Used Date Smoking Tobacco: Never Smokeless Tobacco: Never Social Connection and Isolation Panel [NHANES] A nswer Date Recorded In a typical week, how many times do you talk on the phone with family, friends, or neighbors? Never 04/16/2023 How often do you get together with friends or re latives? Never 04/16/2023 How often do you attend sikhism or presybeterian serv ices? Never 04/16/2023 Do you belong to any clubs o r organizations such as sikhism groups, unions, fraternal or athletic groups, or [...] place to sleep or slept in a half-way (including now)? No 04/16/2023 Housing Stability Vital [...] on file Legal Sex Female 8:53 PM CAST SHELL GRINDER Gender Identity Not on file Sexual Orientation Not on file documented as of this encounter Plan of Treatment Upcoming Encounters Date Type Department Care Team (Latest Contact Info) Description 01/10/2025 10:30 AM CDT Hospital Encounter [facility] ([facility]) [address] [place] [address] Bita Vega MD [address] [place] [address] 01/10/2025 10:30 AM CDT - 01/10/2025 11:15 AM CDT Surgery [facility] Operating [facility] ([facility]) [address] [place] [address] Bita Vega MD [address] [place] [address] EXTRACTION CATARACT - PHACOEMULSIFICATION AND LENS IMPLANT Scheduled Procedures Name Priority Associated Diagnoses Date/Ti me EXTRACTION CATARACT - PHACOEMULSIFICATION AND LENS IMPLANT 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 01/10/2025 10:30 AM CDT documented as of this encounter Procedures Procedure Name Priority Date/Time Associated Diagnosis Comments ULTRASOUND IMMERSION - OU - BOTH EYES Routine 09/24/2024 3:36 PM CAST SHELL GRINDER 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 AC Depth was 3.45 mm. Left Eye Axial length was Phthisis. Notes TRDs right eye (OD) involving macula Left eye (OS): appears to be prephthisical eye us Bita Vega MD OPHTH ULTRASOUND Final Resu lt documented in this encounter Visit Diagnoses Not on filedocumented in this encounter Care Teams Metal Sorter Relationship Specialty Start Date End Date Cherise Patrick PA [address] [place] [id number] PCP - General Physician Insurance Sales Specialist 02/20/23 documented as of this encounter
--- OUTSIDE RECORDS SUMMARY | 2024-11-17 03:11 | XMS_ITS | Encounter Summary ---
Author Organization [facility] Address [address] [place] [address] Care Team Providers Care Four H Agent Name Role Phone Cherise Patrick Primary Care Provider [phone] Reason for Referral * Diagnostic Imaging (Routine) - Closed Specialty Diagnoses / Procedures Referred By Contac t Referred To Contact Radiology Procedures TUNNELED CATHETER PLACEMENT ProviderRebel MD [address] [place] [address] Phone: tel: Referral ID Status Reason Start Date Expiration Date Visits Re quested Visits Authorized [id number] Closed 04/22/2024 05/22/2025 1 1 * Diagnostic Imaging (Routine) - Pending Review Specialty Diagnoses / Procedures Referred By Contac t Referred To Contact Diagnoses Pre-operative exam End stage renal disease (CMS/HCC) (HCC) Procedures US Vein Mapping Duplex Upper Extremity Bilateral Cipriano Mccoy MD [address] [place] [address] Phone: tel: fax: [facility] [address] [place] [phone] Referral ID Status Reason Start Date Expiration Date V isits Requested Visits Authorized [id number] Pending Review 04/22/2024 05/22/2025 1 1 Encounter Details Date Type Department Care Team (Late st Contact Info) Description 04/22/2024 Orders Only [facility] [address] [place] [address] Cipriano Mccoy MD [address] [facility] [address] [place] [address] Pre-operative exam (Primary Dx); End stage renal disease (CMS/HCC) (HCC) Social History Tobacco Use Types Packs/Day [...] Never 04/16/2023 How often do you attend mosque or cheondoism serv ices? Never 04/16/2023 Do you belong to any clubs o r organizations such as mosque groups, unions, fraternal or athletic groups, or [...] slept in a chcf (including now)? No 04/16/2023 Housing Stability Vital [...] on file Legal Sex Female 8:53 PM MUSIC TYPOGRAPHER Gender Identity Not on file Sexual Orientation Not on file documented as of this encounter Plan of Treatment Upcoming Encounters Date Type Department Care Team (Latest Contact Info) Description 01/10/2025 10:30 AM CDT Hospital Encounter [facility]) [address] [place] [address] Bita Vega MD [address] [place] [address] 01/10/2025 10:30 AM CDT - 01/10/2025 11:15 AM CDT Surgery [facility] Operating [facility]) [address] [place] [address] Bita Vega MD [address] [place] [address] EXTRACTION CATARACT - PHACOEMULSIFICATION AND LENS IMPLANT Scheduled Procedures Name Priority Associated Diagnoses Date/Ti me EXTRACTION CATARACT - PHACOEMULSIFICATION AND LENS IMPLANT 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 01/10/2025 10:30 AM CDT documented as of this encounter Procedures Procedure Name Priority Date/Time Associated Diagnosis Comments TUNNELED CATHETER PLACEMENT Schedule Routine, Read Routine (OP Routine) 08/15/2023 3:54 PM CDT documented in this encounter Results * US Vein Mapping Duplex Upper Extremity Bilateral (06/14/2024 10:25 AM CDT) Anatomical Region Laterality Modality Vascular Bilateral Ultrasound 06/14/2024 Narrative 06/17/2024 8:07 AM CDT Am[employer]ion Job ID: [id number] Rest Devices Document ID: [id number] Dictated date/time: [id number] UPPER EXTREMITY VEIN MAPPING REASON FOR EXAM Preop dialysis. COMMENTS ON THE RIGHT Right subclavian catheter is in place. ??No DVT. ??Cephalic is under 3 mm. ?? Basilic is under 3 mm. ??Axillary vein is 9.5 mm. COMMENTS ON THE LEFT Deep veins show normal flow and compressibility. ??Cephalic measures 3.5, 3.9, 3.2, 3.3. ??Basilic is under 3 mm. ??Axillary vein patent, diameter 10.4. OVERALL IMPRESSION Upper cephalic vein marginal in terms of size for AV fistula creation. ?? Bilateral axillary veins are patent. 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
--- OUTSIDE RECORDS SUMMARY | 2024-11-17 03:11 | XMS_ITS | Encounter Summary ---
Author Organization [facility] Address [address] [place] [address] Phone Care Team Providers Care Emu Farmer Name Role Phone Cherise Patrick Primary Care Provider [phone] Reason for Visit * Reason Onset Date Comments Scheduling Appointments 09/10/2024 Encounter Details Date Type Department Care Team (Late st Contact Info) Description 09/10/2024 Telephone [facility] Ophthalmology [address] [place] [address] Uriah Oh Scheduling Appointments Social History Tobacco Use Types Packs/Day Years Used Date Smoking Tobacco: Never Smokeless Tobacco: Never Social Connection and Isolation Panel [NHANES] A nswer Date Recorded In a typical week, how many times do you talk on the phone with family, friends, or neighbors? Never 04/16/2023 How often do you get together with friends or re latives? Never 04/16/2023 How often do you attend confucianist or lutheran serv ices? Never 04/16/2023 Do you belong to any clubs o r organizations such as confucianist groups, unions, fraternal or athletic groups, or [...] in a nursing home (including now)? No 04/16/2023 Housing Stability Vital [...] on file Legal Sex Female 8:53 PM KITCHEN WORKER Gender Identity Not on file Sexual Orientation Not on file documented as of this encounter Miscellaneous Notes * Telephone Encounter - Jodi Trevino, BSusy - 09/10/2024 3:54 PM CST Referring office fax notes for upcoming appt HEN WORKER * Telephone Encounter - Adriano Uriah - 09/10/2024 3:19 PM CST New PT Scheduled: Who pt is being referred to: Cat Sx Providers How soon: first available Reason/Diagnoses: Cat eval Referring doctor: Jaylan Lind MD Referring doctor contact information: [phone] Pt's appt scheduled for: 09.24.24 Transfer of care or 2nd opinion? ros Were Notes requested? yes *Please inform caller that records need to be received before the appointment. If records are not received, there is a chance that the appointment may be canceled* Additional comments: pt was seen at [facility]. Pt will request records from [facility]. Pt needs a records request sent to [facility] from Dr Vega. Sabrina fax # [phone] HEN WORKER documented in this encounter Plan of Treatment Upcoming Encounters Date Type Department Care Team (Latest Contact Info) Description 01/10/2025 10:30 AM CDT Hospital Encounter [facility]) [address] [place] [address] Bita Vega MD [address] [place] [address] 01/10/2025 10:30 AM CDT - 01/10/2025 11:[address] 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
--- OUTSIDE RECORDS SUMMARY | 2024-11-17 03:11 | XMS_ITS | Encounter Summary ---
Author Organization [facility] Address [address] [place] [address] Phone Care Team Providers Care Smelter Charger Name Role Phone Cherise Patrick Primary Care Provider [phone] Reason for Visit * Diagnostic Imaging (Routine) - Pending Review Specialty Diagnoses / Procedures Referred By Jany martinez Referred To Contact Diagnoses Eye exam, routine Procedures B-SCAN ULTRASOUND 30437 - OU - BOTH EYES Bita Vega MD [address] [place] [address] Phone: tel: fax: [facility] (All Locations) Referral ID Status Reason Start Date Expiration Date V isits Requested Visits Authorized [id number] Pending Review 09/24/2024 10/24/2025 1 1 Encounter Details Date Type Department Care Team (Late st Contact Info) Description 09/24/2024 2:35 PM BIOLOGICAL SCIENCES INSTRUCTOR Imaging Exam [facility] Ophthalmology [address] [facility] Outpatient Health 6th [place] [phone] Social History Tobacco Use Types Packs/Day Years Used Date Smoking Tobacco: Never Smokeless Tobacco: Never Social Connection and Isolation Panel [NHANES] A nswer Date Recorded In a typical week, how many times do you talk on the phone with family, friends, or neighbors? Never 04/16/2023 How often do you get together with friends or re latives? Never 04/16/2023 How often do you attend confucianism or episcopal serv ices? Never 04/16/2023 Do you belong to any clubs o r organizations such as confucianism groups, unions, fraternal or athletic groups, or [...] in a senior living (including now)? No 04/16/2023 Housing Stability Vital [...] on file Legal Sex Female 8:53 PM BIOLOGICAL SCIENCES INSTRUCTOR Gender Identity Not on file Sexual Orientation Not on file documented as of this encounter Plan of Treatment Upcoming Encounters Date Type Department Care Team (Latest Contact Info) Description 01/10/2025 10:30 AM CDT Hospital Encounter [facility] Operating [facility] [address] [place] [address] Bita Vega MD [address] [place] [address] 01/10/2025 10:30 AM CDT - 01/10/2025 11:15 AM CDT Surgery [facility] Operating [facility]) [address] [place] [address] Bita Vega MD [address] [place] [address] EXTRACTION CATARACT - PHACOEMULSIFICATION AND LENS IMPLANT Scheduled Procedures Name Priority Associated Diagnoses Date/Ti me EXTRACTION CATARACT - PHACOEMULSIFICATION AND LENS IMPLANT 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 01/10/2025 10:30 AM CDT documented as of this encounter Procedures Procedure Name Priority Date/Time Associated Diagnosis Comments B-SCAN ULTRASOUND 02510 - OU - BOTH EYES Routine 09/24/2024 3:37 PM BIOLOGICAL SCIENCES INSTRUCTOR 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, associated with type 2 diabetes mellitus (HCC) documented in this encounter Results * B-SCAN ULTRASOUND 79905 - OU - BOTH EYES (09/24/2024 3:37 PM BIOLOGICAL SCIENCES INSTRUCTOR) Anatomical Region Laterality Modality Head Ultrasound Narrative 09/24/2024 4:50 PM BIOLOGICAL SCIENCES INSTRUCTOR TRDs right eye (OD) involving macula Left eye (OS): appears to be prephthisical eye Bita Vega MD OPHTH ULTRASOUND Final Resu lt documented in this encounter Visit Diagnoses Not on filedocumented in this encounter Care Teams Smelter Charger Relationship Specialty Start Date End Date Cherise Patrick PA [address] [place] [address] PCP - General Physician Weatherization Field Technician 02/20/23 documented as of this encounter
--- OUTSIDE RECORDS SUMMARY | 2024-11-17 03:11 | XMS_ITS | Encounter Summary ---
Author Organization [facility] Healthcare Address [address] [place] [address] Care Team Providers Care Shipping Clerk Name Role Phone Cherise Patrick Primary Care Provider [phone] Reason for Visit * Reason Comments Hemodialysis Access Permanent acces eval Encounter Details Date Type Department Care Team (Latest Contact Info) Description 06/14/2024 9:28 AM CDT - 06/14/2024 11:59 PM CDT Hospital Encounter [facility] [place] [address] [facility] [address] [place] [address] ESRD (end stage renal disease) on dialysis (HCC) (Primary Dx); Hypertension, unspecified type; Type 2 diabetes mellitus with foot ulcer, with long-term current use of insulin ([facility]/HCC) (HCC) Discharge Disposition: Discharge to home or self care Social History Tobacco Use Types Packs/Day Years [...] How often do you attend spiritism or confucianism serv ices? Never 04/16/2023 Do you belong [...] slept in a longterm (including now)? No 04/16/2023 Housing Stability Vital [...] on file Legal Sex Female 8:53 PM FLOOR FINISHER Gender Identity Not on file Sexual Orientation Not on file documented as of this encounter Last Filed Vital Signs Vital Sign Reading Time Taken Comments Blood Pressure 177/99 06/14/2024 10:22 AM CDT Pulse 87 06/14/2024 10:22 AM CDT Temperature 36.7 ??C (98.1 ??F) 06/14/2024 10:22 AM C DT Respiratory Rate - - Oxygen Saturation 96% 06/14/2024 10:22 AM CDT Inhaled Oxygen Concentration - - Weight - - Height 170.2 cm (5' 7 ) 06/14/2024 10:22 AM CDT Body Mass Index - - documented in this encounter Medications at Time of Discharge amLODIPine (NORVASC) 10 mg tablet Take 1 tablet (10 mg total) by mouth daily carvediloL (COREG) 12.5 mg tablet Take 1 tablet (12.5 mg total) by mouth 2 (two) times a day with meals dulaglutide (TRULICITY) 0.75 mg/0.5 mL pen injector Inject 0.5 mL (0.75 mg total) under the skin every 7 days furosemide (LASIX) 40 mg tablet Take 1 tablet (40 mg total) by mouth daily loperamide (IMODIUM) 2 mg capsule Take 1 capsule (2 mg total) by mouth 4 (four) times a day as needed for diarrhea 12 capsule 02/21/2023 losartan (COZAAR) 25 mg tablet Take 1 tablet (25 mg total) by mouth daily potassium chloride ER 10 mEq CR tablet Take 2 tablet/capsule (20 mEq total) by mouth daily documented as of this encounter Discharge Disposition Disposition Code Departure Means Destination Discharge to home or self care documented in this encounter Progress Notes * Yelena Blackwell RN - 06/14/2024 10:15 AM CDT Patient was here at the request of her dialysis center for permanent access evaluation, currently dialyzing via a RIJ permacath placed at [facility] by Dr. Palacios on 02/25/24. Patient dialyzes on .//Fri with last treatment Friday (06/12/24). Patient has history of CKD, DM, chronic HFpEF, HTN, recent septic arthritis right shoulder on antibiotics, chronic right heel osteomyelitis, and Lt BKA. Patient is right hand dominant. Carla Ward PA-C was here to see patient. Vebal order obtained that patient is not a candidate for permanent access placement and is catheter based for dialysis needs. Patient aware of plan of care, voiced understanding and agreed. She had no questions upon discharge * Carla Ward PA - 06/14/2024 10:15 AM CDT Images from the original note were not included. [facility] HISTORY AND PHYSICAL NOTE Patient ID: Gay Canales is a 33 y.o. female Visit Date: 06/14/2024 Chief Complaint Chief Complaint Patient presents with Hemodialysis Access Permanent acces eval HPI Gay Canales is a 33 y.o. female w/ a history of end-stage renal disease requiring hemodialysisdialyzing via a right IJ Perma catheter placed on 02/25/2024. Additional past past medical history is extensive and includes type 2 diabetes, CHF, left AKA, septic arthritis in her left shoulder currently requiring IV antibiotic therapy, chronic right heel osteomyelitis, blindness. Patient presentstoday for discussion regarding permanent access at the request of her dialysis center. She does nothave any access creation at this time. She does have an open wound to her right foot with chronic osteomyelitis for which she is requiring daily dressing changes. She has a left AKA due to gangrene left foot in the past Previous vascular surgery interventions, including date (surgery, angio,etc): 02/25/2024: Right IJ Perma catheter, Dr. Jauregui Past Medical History: Diagnosis Date CHF (congestive heart failure) ([facility]) (HCC) CKD (chronic kidney disease) Diabetes mellitus ([facility]) Hx of AKA (above knee amputation) ([facility]) ([facility]) Left Hypertension Past Surgical History: Procedure Laterality Date ABOVE KNEE LEG AMPUTATION Left 12/2022 No family history on file. Social History Tobacco Use Smoking status: Never Smokeless tobacco: Never Substance and Sexual Activity Drug use: Never Sexual activity: None Alcohol Use: Not At Risk (05/23/2024) Received from [facility] Frequency of Alcohol Consumption: Never Average Number of Drinks: Patient does not drink Frequency of Binge Drinking: Never ROS Constitutional: No change in appetite. No recent weight loss. No fevers chills or sweats. HEENT: No trouble swallowing. No tinnitus. Eyes: No visual disturbances Respiratory: No shortness of breath. No cough or sputum production. No wheezing. Cardiovascular: No chest pain. No palpitations. Gastrointestinal: No abdominal pain. No nausea vomiting or diarrhea. Genitourinary: No dysuria. No hematuria. Extremities: No claudication. No rest pain. No lower extremity ulcerations or infections. No significant edema. Musculoskeletal: No joint pains. No back pain. Neurologic: No dizziness. No syncope. No weakness. Skin: No rashes. No discoloration. Hematologic: no bleeding Psychiatric: no anxiety, no behavioral changes, no mood swings PE Constitutional: Alert and oriented, ill-appearing HEENT: Head atraumatic and normocephalic Neck is supple No carotid bruits Extraocular movements full, sclerae anicteric Chest: Effort normal. Breath sounds normal. Cardiovascular: S1 and S2 are normal. No murmurs rubs or gallops appreciated. Abdominal: Soft, nontender, no masses. Extremities/Vascular: Bilateral brachial and radial pulses palpable Musculoskeletal: Normal range of motion. Neurologic: Cranial nerves 2-12 intact. Strength and sensation intact bilaterally. Skin: Warm and dry. No rashes. No discoloration. Psychiatric: Normal mood and affect. Behavior normal. Judgment normal. Diagnoses and all orders for this visit: ESRD (end stage renal disease) on dialysis ([facility]) (Primary) Assessment & Plan: Due to patient's overall clinic picture, any further surgical procedure intervention would be deemed high risk. Patient is not a candidate for any type of access creation at this time. We will continue utilizing Perma catheter for dialysis. Follow up in the office on as needed basis Hypertension, unspecified type Comments: Continue antihypertensive regimen Type 2 diabetes mellitus with foot ulcer, with long-term current use of insulin ([facility]) (HCC) Comments: Continue diabetic regimen, dressing changes to left foot. [facility] Vascular Surgery Cosigned by Orestes Mccoy MD at 06/15/2024 8:35 AM CDT documented in this encounter Miscellaneous Notes * Assessment & Plan Note - Carla Ward PA - 06/14/2024 2:44 PM CDT Associated Problem(s): ESRD (end stage renal disease) on dialysis (HCC) Due to patient's overall clinic picture, any further surgical procedure intervention would be deemed high risk. Patient is not a candidate for any type of access creation at this time. We will continue utilizing Perma catheter for dialysis. Follow up in the office on as needed basis documented in this encounter Plan of Treatment Upcoming Encounters Date Type Department Care Team (Latest Contact Info) Description 01/10/2025 10:30 AM CDT Hospital Encounter [facility]) [address] [place] [address] Bita Vega MD [address] [place] [address] 01/10/2025 10:30 AM CDT - 01/10/2025 11:15 AM CDT Surgery [facility] Operating [facility]) [address] [place] [address] Bita Vega MD [address] [place] [address] EXTRACTION CATARACT - PHACOEMULSIFICATION AND LENS IMPLANT Scheduled Procedures Name Priority Associated Diagnoses Date/Ti me EXTRACTION CATARACT - PHACOEMULSIFICATION AND LENS IMPLANT 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
--- OUTSIDE RECORDS SUMMARY | 2024-11-17 03:11 | XMS_ITS | Encounter Summary ---
Author Organization [facility] Healthcare Address [address] [place] [address] Care Team Providers Care Manager Of Production Name Role Phone Cherise Patrick Primary Care Provider Encounter Details Date Type Department Care Team (Latest Contact Info) Description 09/23/2023 5:39 PM ENGINE REPAIRER PRODUCTION - 09/23/2023 11:59 PM ENGINE REPAIRER PRODUCTION Hospital Encounter [address] [phone] Discharge Disposition: Discharge to home or self [...] Never 04/16/2023 How often do you attend religious or jehovah's witness serv ices? Never 04/16/2023 Do you belong to any clubs o r organizations such as religious groups, unions, fraternal or athletic groups, or [...] slept in a penitentiary (including now)? No 04/16/2023 Housing Stability Vital [...] on file Legal Sex Female 8:53 PM ENGINE REPAIRER PRODUCTION Gender Identity Not on file Sexual Orientation [...] or self care documented in this encounter Plan of Treatment Upcoming Encounters Date Type Department Care Team (Latest Contact Info) Description 01/10/2025 10:30 AM CDT Hospital Encounter [facility] Operating [facility]) [facility] [place] [address] Bita Vega MD [address] [place] [address] 01/10/2025 10:30 AM CDT - 01/10/2025 11:15 AM CDT Surgery [facility] Operating [facility]) [address] [place] [address] Bita Vega MD [address] [place] [address] EXTRACTION CATARACT - PHACOEMULSIFICATION AND LENS IMPLANT Scheduled Procedures Name Priority Associated Diagnoses Date/Ti me EXTRACTION CATARACT - PHACOEMULSIFICATION AND LENS IMPLANT 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 73 m2 [facility] Comment: Interpretive Data Reference Interval Normal ?>/= [...] last reviewed 2021. Blood 09/23/2023 5:39 PM ENGINE REPAIRER PRODUCTION 09/23/2023 8:31 PM ENGINE REPAIRER PRODUCTION Tyrel Simmons MD LAB BLOOD ORDERABLES Final Result [facility] [address] Department [place] [address] * (ABNORMAL) Comprehensive metabolic panel, serum (09/23/2023 5:39 PM ENGINE REPAIRER PRODUCTION) Pathologist [facility] Sodium 142 135 - 145 mmol/L [facility] Potassium, sr 5.1 3.6 - 5.2 mmol/L [facility] Chloride 109 97 - 110 mmol/L [facility] CO2 24 22 - 32 mmol/L [facility] Anion gap 9 2 - 15 mmol/L [facility] BUN 26(H) 6 - 25 mg/dL [facility] Creatinine 2.84(H) 0.60 - 1.10 mg/dL [facility] Glucose 142 70 - 199 mg/dL [facility] Comment: Interpretive Data Fasting glucose >/= 126 mg/dl is diagnostic for diabetes. ?? Fasting is defined as no caloric intake for at least 8 hours. Fasting glucose between 100 mg/dl to 125 mg/dl is diagnostic of prediabetes. In a patient with classic symptoms of hyperglycemia or hyperglycemic crisis, a random glucose >/= 200 mg/dl is diagnostic for diabetes. In the absence of unequivocal hyperglycemia, results should be confirmed by repeat testing. The classification and Diagnosis of Diabetes Diabetes Care 2021; 46: S19-S40. Current interpretive data was last revised 2022. Calcium 8.7 8.5 - 10.3 mg/dL [facility] Bilirubin, total 0.3 0.1 - 1.2 mg/dL [facility] Protein, sr 6.8 6.2 - 8.2 g/dL [facility] Albumin 2.9(L) 3.5 - 5.0 g/dL [facility] Alk phos 476(H) 40 - 130 Units/L [facility] ALT 45 7 - 45 Units/L [facility] AST 31 10 - 45 Units/L [facility] Blood 09/23/2023 5:39 PM ENGINE REPAIRER PRODUCTION 09/23/2023 8:21 PM ENGINE REPAIRER PRODUCTION Tyrel Simmons MD LAB BLOOD ORDERABLES Final Result Performing Organization Address City/State/[facility] Co de Phone Number [facility] [address] Department [place] [address] documented in this encounter Visit Diagnoses Not on filedocumented in this encounter Care Teams Manager Of Production Relationship Specialty Start Date End Date Cherise Patrick PA [address] [place] [address] PCP - General Physician Sharepoint Architect 02/20/23 documented as of this encounter
--- OUTSIDE RECORDS SUMMARY | 2024-11-17 03:11 | XMS_ITS | Encounter Summary ---
Author Organization [facility] Healthcare Address [address] [place] [address] Care Team Providers Care Cell Biology Scientist Name Role Phone Cherise Patrick Primary Care Provider Reason for Referral * Diagnostic Imaging (Routine) - Pending Review Specialty Diagnoses / Procedures Referred By Contac t Referred To Contact Diagnoses Pre-operative exam End stage renal disease (CMS/HCC) (HCC) Procedures US Vein Mapping Duplex Upper Extremity Bilateral Cipriano Mccoy MD [address] [place] [address] DR ALVAREZ [address] [place] [address] Phone: tel: fax: [facility] [address] [place] [phone] Referral ID Status Reason Start Date Expiration Date V isits Requested Visits Authorized [id number] Pending Review 04/22/2024 05/22/2025 1 1 Reason for Visit * Diagnostic Imaging (Routine) - Pending Review Specialty Diagnoses / Procedures Referred By Contac t Referred To Contact Diagnoses Pre-operative exam End stage renal disease (CMS/HCC) (HCC) Procedures US Vein Mapping Duplex Upper Extremity Bilateral Cipriano Mccoy MD [address] [place] [address] DR ALVARE[address] [place] [address] Phone: tel: fax: [facility] [address] [place] [phone] Referral ID Status Reason Start Date Expiration Date V isits Requested Visits Authorized [id number] Pending Review 04/22/2024 05/22/2025 1 1 Encounter Details Date Type Department Care Team (Latest Contact Info) Description 06/14/2024 9:27 AM CDT - 06/14/2024 11:59 PM CDT Hospital Encounter [facility] [address] [place] [address] Pre-operative exam; End stage renal disease (CMS/HCC) (HCC) Discharge Disposition: Discharge to home or [...] Never 04/16/2023 How often do you attend judaism or sikhism serv ices? Never 04/16/2023 Do you belong to any clubs o r organizations such as judaism groups, unions, fraternal or athletic groups, or [...] in a care home (including now)? No 04/16/2023 Housing Stability [...] on file Legal Sex Female 8:53 PM WHEEL LACER AND TRUER Gender Identity Not on file Sexual Orientation [...] 10:30 AM CDT Hospital Encounter [facility] [address] [place] [address] Bita Vega MD [address] [place] [address] 01/10/2025 10:30 AM CDT - 01/10/2025 11:15 AM CDT Surgery [facility]) [address] [place] [address] Bita Vega MD [address] [place] [address] EXTRACTION CATARACT - PHACOEMULSIFICATION AND LENS IMPLANT Scheduled Procedures Name Priority Associated Diagnoses Date/Ti me EXTRACTION CATARACT - PHACOEMULSIFICATION AND LENS IMPLANT 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 01/10/2025 10:30 AM CDT documented as of this encounter Procedures Procedure Name Priority Date/Time Associated Diagnosis Comments US VEIN MAPPING DUPLEX UPPER EXTREMITY BILATERAL Schedule Routine, Read Routine (OP Routine) 06/14/2024 10:25 AM CDT Pre-operative exam End stage renal disease (CMS/HCC) (HCC) documented in this encounter Results * US Vein Mapping Duplex Upper Extremity Bilateral (06/14/2024 10:25 AM CDT) Anatomical Region Laterality Modality Vascular Bilateral Ultrasound 06/14/2024 Narrative 06/17/2024 8:07 AM CDT [email or web address] Job ID: [id number] [employer] Document ID: [id number] Dictated date/time: [id number] UPPER EXTREMITY VEIN MAPPING REASON FOR EXAM [...] veins are patent. 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
--- OUTSIDE RECORDS SUMMARY | 2024-11-17 03:11 | XMS_ITS | Encounter Summary ---
Author Organization [facility] Healthcare Address [address] [place] [address] Care Team Providers Care Clam Shucker Name Role Phone Cherise Patrick Primary Care Provider Encounter Details Date Type Department Care Team (Late st Contact Info) Description 05/20/2024 Documentation [facility] [address] [place] [id number] Sasha Sexton MD [address] [facility] [address] [place] [address] Social History Tobacco Use Types Packs/Day Years Used Date Smoking Tobacco: Never Smokeless Tobacco: Never Social Connection and Isolation Panel [NHANES] A nswer Date Recorded In a typical week, how many times do you talk on the phone with family, friends, or neighbors? Never 04/16/2023 How often do you get together with friends or re latives? Never 04/16/2023 How often do you attend anglican or alevism serv ices? Never 04/16/2023 Do you belong to any clubs o r organizations such as anglican groups, unions, fraternal or athletic groups, or [...] in a skilled nursing (including now)? No 04/16/2023 Housing Stability Vital [...] on file Legal Sex Female 8:53 PM IMAGING TECHNOLOGIST Gender Identity Not on file Sexual Orientation Not on file documented as of this encounter Progress Notes * Sasha Sexton MD - 05/20/2024 4:38 PM CDT Outside Hospital Transfer Note Division of Hospital Medicine Call Participants Referring hospital or service: [facility] Clinical Info Reason for Transfer: Specialist Consult History: 33 yo F on HD for esrd presented with left shoulder pain, now with septic bursitis and osteomyelitis. Hemodynamically stable. WBC wnl. On cefe/vanc. Blood cultures on 05/15 ngtd. They will ask ortho to possibly tap joint. Does patient consent to transfer: yes Is the patient established with any [facility] providers?: no Problem list and anticipated needs upon transfer: 1. Infectious diseases Outcome Primary service: Med Pool Urgency: Routine Information reflected above was gathered from referring provider and/or chart review. I have not seen or examined this patient. Sasha Sexton MD Medicine Triage Attending documented in this encounter Plan of Treatment Upcoming Encounters Date Type Department Care Team (Latest Contact Info) Description 01/10/2025 10:30 AM CDT Hospital Encounter [facility] [address] [place] [id number] Bita Vega MD [address] [place] [address] 01/10/2025 10:30 AM CDT - 01/10/2025 11:15 AM CDT Surgery [facility]) [address] [place] [id number] Bita Vega MD [address] [place] [address] EXTRACTION CATARACT - PHACOEMULSIFICATION AND LENS IMPLANT Scheduled Procedures Name Priority Associated Diagnoses Date/Ti me EXTRACTION CATARACT - PHACOEMULSIFICATION AND LENS IMPLANT 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
--- OUTSIDE RECORDS SUMMARY | 2024-11-17 03:11 | XMS_ITS | Encounter Summary ---
Author Organization [facility] Address [address] [place] [address] Phone Care Team Providers Care Carbon Capture Power Plant Manager Name Role Phone Cherise Patrick Primary Care Provider [phone] Reason for Referral * Diagnostic Imaging (Routine) - Pending Review Specialty Diagnoses / Procedures Referred By Bingac t Referred To Contact Diagnoses Eye exam, routine Procedures B-SCAN ULTRASOUND 85792 - OU - BOTH EYES Bita Vega MD [address] [place] [address] Phone: tel: fax: [facility] (All Locations) Referral ID Status Reason Start Date Expiration Date V isits Requested Visits Authorized [id number] Pending Review 09/24/2024 10/24/2025 1 1 EILLANCE MONITOR * Diagnostic Imaging (Routine) - Pending Review Specialty Diagnoses / Procedures Referred By Jany t Referred To Contact Diagnoses Eye exam, routine Procedures Ultrasound Immersion 95018 - OU - Both Eyes Bita Vega MD [address] [place] [address] Phone: tel: fax: [facility] (All Locations) Referral ID Status Reason Start Date Expiration Date V isits Requested Visits Authorized [id number] Pending Review 09/24/2024 10/24/2025 1 1 EILLANCE MONITOR Reason for Visit * Reason Comments Cataract * Consultation (Routine) - Pending Review Specialty Diagnoses / Procedures Referred By Jany martinez Referred To Contact Ophthalmology Diagnoses Eye exam, routine Cherise Patrick PA [address] [place] [address] Phone: tel: fax: [facility] (All Locations) Referral ID Status Reason Start Date Expiration Date Visits Requested Visits Authorized [id number] Pending Review Specialty Services Required 09/10/2024 10/10/2025 1 1 Encounter Details Date Type Department Care Team (Latest Contact Info) Description 09/24/2024 1:15 PM SURVEILLANCE MONITOR Office Visit [facility] Ophthalmology [address] [facility] [address] [place] [address] Bita Vega MD [address] [place] [address] 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 Never 04/16/2023 Do you belong to any clubs o r organizations such as congregational groups, unions, fraternal or athletic groups, or [...] slept in a jail (including now)? No 04/16/2023 Housing Stability Vital [...] on file Legal Sex Female 8:53 PM SURVEILLANCE MONITOR Gender Identity Not on file Sexual Orientation Not on file documented as of this encounter Progress Notes * Bita Vega MD - 09/24/2024 1:15 PM CST Images from the original note were not included. Assessment and Plan 1. 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 Patrick Visually and functionally significant cataract - patient endorses no vision in left eye, decreased vision od Discussed r/b/a of cataract surgery and all refractive options, and the patient wants to proceed with surgery. The cataract is causing symptomatic impairment of visual function interfering with activities of daily life in a fashion not correctable with a tolerable change in glasses or contact lens nor other non- operative means. A reasonable expectation exists that surgery will significantly improve both visual and functional status. We discussed all risks and benefits, including bleeding, infection, retinal detachment, glaucoma, and other smaller complications. Patient wishes to proceed with surgery and understands that surgery is being performed to address the worsening cataracts. Patient u nderstands that any risk of anesthesia will be discussed further by our anesthesia team on the day of surgery. Cylinder (cyl): sig Plan CEIOL First: right Aim: distance monofocal Topical, dilates well, no PXE or phacodenesis. Can lay flat Flomax: no Diabetes mellitus (DM) or other macular pathology: YES dense psc but will not operate unless retina recommends it -we have all the measurements, can schedule surgery if the retina attending requires surgery for view long discussion rE: increased risk of complications given hx of previous injections. Also understands vision may remain limited despite surgery given posterior pole anatomy 2. 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 Neovascular glaucoma (NVG) left eye (OS) - was getting intravitreal injections at [facility] [employer] until about 4 months ago --> wishes to transfer care here - ref to retina Imaging and Procedures this visit IOL Biometry - OU - Both Eyes Component Value Flag Ref Range Units Status AC IOL (OS) Unable Final AC IOL (OD) 3.27 Final White to White (OS) Unable Final White to White (OD) 11.7 mm Final A LENGTH (OS) Phthisis Final A LENGTH (OD) Unable Final Right Eye Axial length was Unable. White to white was 11.7 mm. AC Depth was 3.27. Left Eye Axial length was Phthisis. White to white was Unable. AC Depth was Unable. Notes Immersion performed OD: Axial: 22.78 mm & LT: 3.64 mm Completely opaque cornea left eye (OS) Acceptable for surgical planning. Bita Vega MD Ultrasound Immersion 85806 - OU - Both Eyes Component Value Flag Ref Range Units Status AC IOL (OD) 3.45 mm Final A LENGTH (OS) Phthisis Final A LENGTH (OD) 22.78 mm Final Right Eye Axial length was 22.78 mm. AC Depth was 3.45 mm. Left Eye Axial length was Phthisis. Notes TRDs right eye (OD) involving macula Left eye (OS): appears to be prephthisical eye Linked Images B-SCAN ULTRASOUND 75972 - OU - BOTH EYES TRDs right eye (OD) involving macula Left eye (OS): appears to be prephthisical eye Follow up Follow-up and Dispositions Return for ceiol od once cleared by retina. I have personally examined the patient, participated in all aspects of their care, and formulated the treatment plan. I have also discussed risks and benefits of all medications started or continued during this visit. EILLANCE MONITOR documented in this encounter Plan of Treatment Upcoming Encounters Date Type Department Care Team (Latest Contact Info) Description 01/10/2025 10:30 AM CDT Hospital Encounter [facility] [place] [address] Bita Vega MD [address] [place] [address] 01/10/2025 10:30 AM CDT - 01/10/2025 11:15 AM CDT Surgery [facility]) [address] [place] [address] Bita Vega MD [address] [place] [address] EXTRACTION CATARACT - PHACOEMULSIFICATION AND LENS IMPLANT Scheduled Procedures Name Priority Associated Diagnoses Date/Ti me EXTRACTION CATARACT - PHACOEMULSIFICATION AND LENS IMPLANT 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 01/10/2025 10:30 AM CDT documented as of this encounter Procedures Procedure Name Priority Date/Time Associated Diagnosis Comments B-SCAN ULTRASOUND 70934 - OU - BOTH EYES Routine 09/24/2024 3:37 PM SURVEILLANCE MONITOR 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, associated with type 2 diabetes mellitus (HCC) ULTRASOUND IMMERSION - OU - BOTH EYES Routine 09/24/2024 3:36 PM SURVEILLANCE MONITOR 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78 mm CONTINUUM Anatomical Region Laterality Modality Head Ultrasound Narrative 09/24/2024 4:50 PM SURVEILLANCE MONITOR Right Eye Axial length was 22.78 mm. AC Depth was 3.45 mm. Left Eye Axial length was Phthisis. 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, associated with type 2 diabetes mellitus (HCC) 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 documented in this encounter Orders Outpatient Referral Count Last Ordered Date Fir st Ordered Date AMB REFERRAL TO OPHTHALMOLOGY 1 09/24/2024 documented in this encounter Eye Exam Visual Acuity (Snellen - Linear) Right eye Left eye Dist sc LP NLP Tonometry ([facility], 2:03 PM) Right eye Left eye Pressure 21 3 Pupils Dark Shape React Right eye 5 Irregular Sluggish Left eye No view Visual Hernandez Right eye Left eye Restrictions Total superior tempo ral, inferior temporal, superior nasal, inferior nasal deficiencies Total superior temporal, inferior temporal, superior nasal, inferior nasal deficiencies Dilation Defer to MD External Exam Right eye Left eye External Normal Normal Slit Lamp Exam Right eye Left eye Lids/Lashes Normal Normal Conjunctiva/Sclera White and quiet White and peewee et Cornea Clear Clear Anterior Chamber Deep and quiet moderate Iris Round and reactive fixed, NVI Lens 1+ NSC with 4+ dense PSC changes mature cataract with 360 ps Anterior Vitreous Normal Fundus Exam Right eye Left eye Disc hazy no view Macula hazy no view Vessels hazy no view Periphery hazy view, appears to have tract ional fibrotic changes no view Care Teams Carbon Capture Power Plant Manager Relationship Specialty Start Date End Date Cherise Patrick PA [address] [place] [id number] PCP - General Physician Leather Tooler 02/20/23 documented as of this encounter
--- OUTSIDE RECORDS SUMMARY | 2024-11-17 03:11 | XMS_ITS | Encounter Summary ---
Author Organization [facility] Healthcare Address [address] [place] [address] Care Team Providers Care Senior Interactive Producer Name Role Phone Cherise Patrick Primary Care Provider [phone] Reason for Visit * Reason Comments Shortness of Breath * Auth/Cert (Routine) Specialty Diagnoses / Procedures Referred By Contac t Referred To Contact Diagnoses Shortness of breath Respiratory insufficiency Abdominal pannus Chronic wound infection of abdomen, initial encounter Heel ulceration, right, with unspecified severity (HCC) Diabetes mellitus with coincident hypertension (HCC) Acute renal failure superimposed on chronic kidney disease, unspecified CKD stage, unspecified acute renal failure type Acute on chronic congestive heart failure, unspecified heart failure type (HCC) Procedures NA Referral ID Status Reason Start Date Expiration Date Visits Re quested Visits Authorized [id number] 1 1 Encounter Details Date Type Department Care Team (Late st Contact Info) Description 04/15/2023 1:30 PM CDT - 04/26/2023 4:00 AM CDT Hospital Encounter [address] [address] Sam Chao MD [address] [place] [id number] Amilcar Hancock MD [address] [place] [address] HOSPITALIST OFFICE, [place] [address] Hien Rabago MD [address] [facility] [address] [place] [address] Willie Castro MD [facility] [facility] [place] [address] Marilin Garcia MD [address] [facility] [place] [address] Shortness of breath (Primary Dx); Diabetes mellitus with coincident hypertension (HCC); Respiratory insufficiency; Abdominal pannus; Heel ulceration, right, with unspecified severity (HCC); Acute on chronic congestive heart failure, unspecified heart failure type (HCC); Acute renal failure superimposed on chronic kidney disease, unspecified CKD stage, unspecified acute renal failure type (HCC); Chronic wound infection of abdomen, initial encounter; Rectal bleed Discharge Disposition: Discharge to other short term GEN IP hosp with plan readmit Social History Tobacco Use Types Packs/Day Years Used Date Smoking Tobacco: Never Smokeless Tobacco: Never Social Connection and Isolation Panel [NHANES] A nswer Date Recorded In a typical week, how many times do you talk on the phone with family, friends, or neighbors? Never 04/16/2023 How often do you get together with friends or re latives? Never 04/16/2023 How often do you attend congregation or voodoo serv ices? 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 Gender Identity Not on file Sexual Orientation Not on file documented as of this encounter Last Filed Vital Signs Vital Sign Reading Time Taken Comments Blood Pressure 160/83 04/26/2023 3:00 AM CDT Pulse 98 04/26/2023 3:00 AM CDT Temperature 36.5 ??C (97.7 ??F) 04/26/2023 3:00 AM CD T Respiratory Rate 22 04/26/2023 3:00 AM CDT Oxygen Saturation 97% 04/26/2023 3:00 AM CDT Inhaled Oxygen Concentration - - Weight 161.9 kg (357 lb) 04/21/2023 6:07 AM CDT Height 170.2 cm (5' 7 ) 04/15/2023 7:50 PM CDT Body Mass Index 55.91 04/15/2023 7:50 PM CDT documented in this encounter Discharge Summaries * Willie Castro MD - 04/26/2023 4:00 AM CDT Inpatient Discharge Summary Patient Name - Leeroy Canales Patient Age - 32 yrs Patient - [id number] [facility] - [id number] Document Creation Date: 04/26/2023 Admitting Provider, : Marilin Garcia MD Discharge Provider, MD: No att. providers found Primary Care Physician at Discharge: Cherise Patrick PA [phone] Admission Date: 04/15/2023 Discharge Date/time: 04/26/2023 Admission Location: [facility] LOS - LOS: 11 days DETAILS OF HOSPITAL STAY Hospital Problems/Diagnoses Principal Problem: Rectal bleed Active Problems: Acute diastolic congestive heart failure (CMS/HCC) (HCC) Type II diabetes mellitus with foot ulcer (HCC) Hypertension Acute respiratory failure with hypoxia (CMS/HCC) (HCC) Diarrhea Acute kidney failure (HCC) Elevated troponin Osteomyelitis (HCC) Wounds, multiple Reason for Hospitalization: acute on chronic CHF exacerbation, she was also found to have an ulcer on the right foot. Hospital Course: The patient is a 32 year female with past medical history of type 2 diabetes, essential hypertension, CHF with preserved ejection fraction and left AKA was admitted in hospital for acute on chronic CHF exacerbation, she was also found to have an ulcer on the right foot. Id was consulted for antibiotic management they recommended ceftriaxone and daptomycin plus Flagyl currently on day 10. Her WBC count slightly trended up to 17,000 Vascular surgery evaluated the patient they recommended an amputation but patient refused, arterialDoppler done on the 14 showed normal in the wave form on the right lower extremity with no significant distal ischemia. Podiatry is not actively seen patient this week, I discussed with the General surgery they usually do not do debridement of the lower extremities,We contacted transfer center, we are discussing the case with Kristi Hernandez for possible transfer given the fact we have no podiatry service active in our hospital. We dicussed the [facility] with [facility] who refused the patient for transfer, he said they do not do a debridement by his service, he will recommend an amputation or debridement by general surgery. I contacted [facility] team discussed with the hospitalist team (Dr. Elder) they agree for transfer surgical team agree for consultation for possible debridement. Patient also presented with acute hypoxic respiratory failure secondary to pulmonary edema in the context of sepsis, pulmonary was consulted they recommended the patient to be put on bronchodilators and patient also receiving IV Lasix. Patient also presented with BOBBY on CKD this is why nephrology was consulted has been following the case, they determined the patient has significant proteinuria, they recommended to increase Lasix tot.I.d. During the night of April 22 was agitated overnight she removed the oxygen she became hypoxic, patient stated again she does not want to pursue an amputation, code status was switched to DNR after palliative Care evaluate needed the patient discussed advanced care planning with her. During the afternoon of April 22 nursing staff showed the patient having bright red blood per rectum, H&H has remained stable FOBT was negative we had a discussion with GI they recommended bleeding scan given the patient BOBBY, bleeding scan was done and showed no evidence of active bleeding. GI evaluated the patient and took the patient today for upper endoscopy and sigmoidoscopy, sigmoidoscopyreported nonbleeding internal hemorrhage which likely the cause of the rectal bleeding, upper endoscopy showed normal esophagus and gastritis Patient was transfer to [facility] on 04/26/2023 Discharge Details Physical Exam at Discharge: Discharge Condition: stable Pulse: 98 Resp: 22 BP: 160/83 Temp: 36.5 ??C (97.7 ??F) Weight: (!) 161.9 kg (357 lb) Discharge Disposition: Discharge to other short term GEN IP hosp with plan readmit Code Status at Discharge: LIMITED - No CPR Active Issues & Recommended Plan for Follow-up: Podiatry Allergies: Patient has no known allergies. Discharge Medications: Your medication list ASK your doctor about these medications Instructions Last Dose Given Next Dose Due amLODIPine 10 mg tablet Commonly known as: NORVASC Take 1 tablet (10 mg total) by mouth daily carvediloL 12.5 mg tablet Commonly known as: COREG Take 1 tablet (12.5 mg total) by mouth 2 (two) times a day with meals dulaglutide 0.75 mg/0.5 mL pen injector Commonly known as: TRULICITY Inject 0.5 mL (0.75 mg total) under the skin every 7 days furosemide 40 mg tablet Commonly known as: LASIX Take 1 tablet (40 mg total) by mouth daily loperamide 2 mg capsule Commonly known as: IMODIUM Take 1 capsule (2 mg total) by mouth 4 (four) times a day as needed for diarrhea losartan 25 mg tablet Commonly known as: COZAAR Take 1 tablet (25 mg total) by mouth daily potassium chloride ER 10 mEq CR tablet Commonly known as: KLOR-CON Take 2 tablet/capsule (20 mEq total) by mouth daily Time Spent in Discharge Process: I have spent 42 minutes on discharge planning activities. Time spent was on Coordination of care Test Results Pending at Discharge (If Blank, None Found): Pending Labs Order Current Status Creatine kinase (CK), total In process Creatine kinase (CK), total In process Pro B-type natriuretic peptide In process Troponin T high-sensitivity 2-hour In process Operative Procedures Performed (If Blank, None Found): Procedure(s): ESOPHAGOGASTRODUODENOSCOPY SIGMOID BIOPSY Outpatient Follow-Up: Contact Information for Follow-ups [address] [phone] Next Steps: Call Instructions: As needed for psychiatric services. embraase [address] [place] [phone] Next Steps: Call Instructions: As needed for psychiatric services. Please schedule an appointment with the following provider(s): [address] [phone] Call As needed for psychiatric services. embraase [address] [facility] [phone] Call As needed for psychiatric services. ANCILLARY INFORMATION Other Procedures & Diagnostic Tests: US Arterial Doppler Lower Extremity Bilateral Result Date: 04/18/2023 [employer] Job ID: [id number] [employer] Document ID: [id number] Dictated date/time: [id number] REASON FOR STUDY Gangrene right heel. Triphasic flow in the right common femoral, popliteal, dorsalis pedis and posterior vessels. NORMA is 1/1, DP/PT. IMPRESSION Normal indices waveforms in the right lowerextremity with no significant distal ischemia. Job ID/Internal Job ID: [id number] US Kidney Complete Result Date: 04/16/2023 EXAM DESCRIPTION: US KIDNEY COMPLETE REASON FOR STUDY: CKD for 12 years. TECHNIQUE: Ultrasound of the kidneys and urinary bladder was performed with grayscale imaging. COMPARISON: 05/08/2011 FINDINGS: RIGHT KIDNEY: The right kidney measures 12.6 cm in length. There is no hydronephrosis. There is normal cortical thickness and echogenicity. LEFT KIDNEY: The left kidney measures 12.3 cm in length. There is no hydronephrosis. There is normal cortical thickness and echogenicity. URINARY BLADDER: Urinary bladder is decompressed with a balloon tip Fortune catheter. OTHER: No other additional findings.IMPRESSION: Normal renal ultrasound. THIS IS AN ELECTRONICALLY VERIFIED FINAL REPORT 04/16/2023 1:53PM - Electronically signed by Jed CROWE T: ReportID: [id number] Reading Location: [place] [address] Transthoracic Echo (TTE) Complete W Doppler/CF Result Date: 04/16/2023 Adult Echocardiogram + + :Name: CANALES LEEROY Erik Ramos Study Date: 04/16/2023 Status: B : : Patient Location: [address]^[id number]^MHBHeight: 67 in : : Weight: 318 lbBP: 153/85 mmHg: :: 1990 Gender: Female BSA: 2.5 m2 : :Reason For Study: acutedecompensated heart failure : :Ordering Physician: : :AMILCAR HANCOCK : : : :Performed By: Tamar : :JOLENE Tinajero : + + Procedure A two-dimensional transthoracic echocardiogram with color flow and Doppler was performed. A contrast injection of Definity was performed to improve assessment of LV function. Definity lot # is ' [id number] '. The study was technically difficult due to patient's 'body habitus'. Left Ventricle The left ventricle is normal in size. There is normal left ventricular wall thickness. Left ventricular systolic function is normal. Ejection Fraction = 60-65%. The left ventricular wall motion is normal. There is no obvious thrombus noted. Right Ventricle The right ventricle is normal size. The right ventricular systolic function is normal. Atria The left atrium is mild ly dilated. The right atrium is mildly dilated. The interatrial septum is intact with no evidence for an atrial septal defect. Mitral Valve The mitral valve is normal. There is no mitral regurgitation noted. Tricuspid Valve The tricuspid valve is normal. There is mild tricuspid regurgitation. Rightventricular systolic pressure is normal. Aortic Valve Aortic valve structure is normal. No aortic stenosis . No aortic regurgitation is present. Pulmonic Valve The pulmonic valve is not well visualized. Great Vessels The aortic root is normal size. IVC appears 'dilated' in size. IVC has blunted respirophasic collapse. Estimated right atrial pressure is ' 10-15' mmHg. Elevated right heart pressures . Pericardium Mild to moderate pericardial effusion. There are no echocardiographic indications of cardiac tamponade. There is no pleural effusion. Diastology Mitral inflow pattern is normal. E/E prime ratio is >15 suggesting a high pulmonary wedge pressure and LV diastolic dysfunction. Interpretation Summary Left ventricular systolic function is normal. Ejection Fraction = 60-65%. The left atrium is mildly dilated. The right atrium is mildly dilated. There is mild tricuspid regurgitation. Right ventricular systolic pressure is normal. Estimated right atrial pressure is ' 10-15' mmHg. Elevated right heart pressures. Mild to moderate pericardial effusion. There are no echocardiographic indications of cardiac tamponade. Mitral inflow pattern is normal. E/E prime ratio is >15 suggesting a high pulmonary wedge pressure and LV diastolic dysfunction. + + :Measurements with Normals : : (0.6- 1.2 LVIDd: (3.5-5.7 Ao root diam: (2.0-3.7 : :IVSd: 1.2 cmcm) 4.9 cm cm) 2.6 cm cm) : :LVPWd: (0.6-1.1 LVIDs: (3.1-4.6 LA dimension: (1.9-4.0 : :1.2 cm cm) 3.2 cm cm) 3.8 cm cm) : + + MMode/2D Measurements & Calculations RVDd: 2.9 cm FS: 34.6 % Ao root area: 5.3 cm2 LVOT diam: 2.0 cm EDV(Teich): 110.2 ml LVOT area: 3.1 cm2 ESV(Teich): 40.0 ml Doppler Measurements & Calculations MV E max mariajose: Ao V2 max: LV V1 max PG: TV V2 max: 124.0cm/sec 155.0 cm/sec 6.7 mmHg 73.8 cm/sec MV A max mariajose: Ao max P.6 mmHg LV V1 max: TV max P.2 mmHg 50.1 cm/sec FARIBA(V,D): 2.6 cm2 129.0 cm/sec MV E/A: 2.5 PA V2 max: PI end-d mariajose: RV V1 max: TR max mariajose: 109.0 cm/sec 109.0 cm/sec78.2 cm/sec 173.0 cm/sec PA max P.8 mmHg TR max P.0 mmHg RVSP(TR): 20.0 mmHg RAP systole: 8.0 mmHg Electronically signed by: Sultan Jina MD 04/16/2023 12:49 PM NM Pulmonary Perfusion Imaging Result Date: 04/15/2023 EXAM DESCRIPTION: NM PULMONARY PERFUSION IMAGING RADIOPHARMACEUTICAL: 4 mCi Tc- 99m MAA via a right antecubital vein IV site REASON FOR STUDY: Chest pain. Shortness of breath and cough. TECHNIQUE: Limited multi-planar perfusion scintigrams were obtained. COMPARISON: Chest radiograph 04/15/2023 FINDINGS: Perfusion images obtained in the anterior, anterior oblique, and lateral projections were obtained. The posterior and posterior oblique projections were not obtained. There is mild enlargement ofthe cardiomediastinal silhouette. There are no large segmental perfusion defects on the provided images. IMPRESSION: 1. Limited perfusion lung scan with a low probability for pulmonary embolism. THISIS AN ELECTRONICALLY VERIFIED FINAL REPORT 04/15/2023 4:31 PM - Electronically signed by Amor Rodriguez M.D. LB T: Report ID: [id number] Reading Location: [id number] XR Foot Right 3 or More Views Result Date: 04/15/2023 EXAM DESCRIPTION: XR FOOT RIGHT 3 OR MORE VIEWS REASON FOR STUDY: Wound infection TECHNIQUE: 3 radiographic view(s) of the right foot . COMPARISON: 02/20/2023 FINDINGS: Plantar soft tissue ulcerationof the hindfoot with underlying soft tissue gas. There is diffuse soft tissue swelling of the foot, particularly involving the dorsal aspect of the mid to forefoot. No radiopaque foreign bodies. There is suspected mild osseous cortical erosion involving the plantar aspect of the calcaneus when compared to the prior exam. No acute fracture or dislocation. IMPRESSION: Prominent soft tissue ulceration of the plantar aspect of the hindfoot with underlying soft tissue gas. Suspected osseous corticalerosion involving the plantar aspect of the calcaneus, concerning for acute osteomyelitis. THIS IS AN ELECTRONICALLY VERIFIED FINAL REPORT 04/15/2023 2:51 PM - Electronically signed by Rio PHILLIPS T: Report ID: [id number] Reading Location: [id number] XR Chest 1 Vw Portable Result Date: 04/15/2023 EXAM DESCRIPTION: XR CHEST 1 VIEW REASON FOR STUDY: Shortness of breath Pt with sob, weakness x 2-3days Hx lg necrotic wnd on rt foot that she is being treated for Pt is lt leg amputee above the knee TECHNIQUE: 1 radiographic view(s) of the chest. COMPARISON: None FINDINGS: LUNGS: Diffuse bilateral interstitial opacities. No focal consolidation. No pneumothorax. No large pleural effusion. HEART/MEDIASTINUM: Cardiac silhouette is enlarged.. Mediastinal and hilar contours appear normal. LINES/TUBES: None. BONES: No acute osseous abnormality. IMPRESSION: Findings are suggestive of pulmonary edema. THIS IS AN ELECTRONICALLY VERIFIED FINAL REPORT 04/15/2023 2:43 PM - Electronically signed by Rio PHILLIPS T: Report ID: [id number] Reading Location: [id number] Recent Labs: Recent Labs Lab Units 04/25/23 0833 04/24/23203404/24/23 0758 WBC K/cumm 17.9* 17.2* 16.6* HEMOGLOBIN g/dL 8.0* 8.3* 7.9* HEMATOCRIT % 26.9* 27.7* 26.7* PLATELETS K/cumm 548* 523* 500* Recent Labs Lab Units 04/25/23 0833 04/24/23 2035 04/24/23 0758 WBC K/cumm 17.9* 17.2* 16.6* HEMOGLOBIN g/dL 8.0* 8.3* 7.9* HEMATOCRIT % 26.9* 27.7* 26.7* PLATELETS K/cumm 548* 523* 500* NEUTROS PCT % 82.6 84.2 81.3 LYMPHS PCT % 8.7 7.3 8.4 MONOS PCT % 5.4 5.0 6.9 EOS PCT % 2.2 2.5 2.2 Recent Labs Lab Units 04/25/23201304/25/23 1057 04/25/23 0833 04/24/23 0739 04/24/23 0620 04/23/23 1207 04/23/23 0923 SODIUM mmol/L -- -- 141 142 -- 143 -- 143 POTASSIUM PLASMA mmol/L -- -- 3.3 3.3 -- 3.3 -- 3.3 CHLORIDE mmol/L -- -- 103 105 -- 105 -- 106 CO2 mmol/L -- -- 33* 33* -- 31 -- 29 BUN SERUM mg/dL -- -- 12 12 -- 14 -- 16 CREATININE mg/dL -- -- 1.20* 1.20* -- 1.20* -- 1.30* [id number] mL/min/1.73 m2 -- -- 62 62 -- 62 -- 57 GLUCOSE mg/dL -- -- 144 144 -- 126 -- 106 POC GLUCOSE MONITOR mg/dL 214* < > -- < > -- < > -- CALCIUM mg/dL -- -- 8.2* 8.0* -- 8.3* -- 8.3* ALBUMIN g/dL -- -- 1.8* 1.8* -- 2.1* -- 2.0* PHOSPHORUS PLASMA mg/dL -- -- 2.7 -- 2.9 -- 3.0 < > = values in this interval not displayed. Recent Labs Lab Units 04/25/23201304/25/23 1602 04/25/23 1057 04/25/23 0833 04/24/23 0739 04/24/23 0604/23/23 1207 04/23/23922 SODIUM mmol/L -- -- -- 141 142 -- 143 -- 143 POTASSIUM PLASMA mmol/L -- -- -- 3.3 3.3 -- 3.3 -- 3.3 CHLORIDE mmol/L -- -- -- 103 105 -- 105 -- 106 CO2 mmol/L -- -- -- 33* 33* -- 31 -- 29 ANIONGAP mmol/L -- -- -- 5 4 -- 7 -- 8 GLUCOSE mg/dL -- -- -- 144 144 -- 126 -- 106 POC GLUCOSE MONITOR mg/dL 214* 153 170 -- < > -- < > -- BUN SERUM mg/dL -- -- -- 12 12 -- 14 -- 16 CREATININE mg/dL -- -- -- 1.20* 1.20* -- 1.20* -- 1.30* CALCIUM mg/dL -- -- -- 8.2* 8.0* -- 8.3* -- 8.3* ALBUMIN g/dL -- -- -- 1.8* 1.8* -- 2.1* -- 2.0* ALK PHOS Units/L -- -- -- 255* 250* -- 233* -- 241* ALT Units/L -- -- -- 27 26 -- 14 -- 11 AST Units/L -- -- -- 50* 50* -- 22 -- 13 BILIRUBIN TOTAL mg/dL -- -- -- 0.4 0.3 -- 0.4 -- 0.4 < > = values in this interval not displayed. Recent Labs Lab Units 04/25/23 0833 04/24/2361904/23/23922 ALK PHOS Units/L 255* 250* 233* 241* BILIRUBIN TOTAL mg/dL 0.4 0.3 0.4 0.4 TOTAL PROTEIN g/dL 5.9* 5.8* 5.7* 5.8* ALT Units/L 27 26 14 11 AST Units/L 50* 50* 22 13 Recent Labs Lab Units 04/25/23 0833 04/24/23 0620 06/21/23 0923 MAGNESIUM mg/dL 1.5 1.5 1.5 Lab Results Component Value Date GLUCOSE 214 (H) 04/25/2023 GLUCOSE 153 04/25/2023 GLUCOSE 170 04/25/2023 Implant: Implants No active implants to display in this view. General Precautions (If Blank, None Found): Weight Bearing Restrictions: Yes RLE Weight Bearing: Non-weight bearing Weight Bearing Restrictions: Yes Isolation Status: No active isolations Nutritional Status and in-house recommendations: Dietary Orders (From admission, onward) Start Ordered 04/26/23 1100 Oral Nutrition Supplements Select Supplement: Glucerna - Zumbrota; Quantity (# of cans): 1 can With Lunch Question Answer Comment Select Supplement: Glucerna - Zumbrota Quantity (# of cans): 1 can 04/25/23 1453 04/25/23 1640 Late Tray Diet Once (Routine) Comments: Patient dropped dinner tray on floor 04/25/23 1640 04/25/23 0855 Late Tray Diet Once (Routine) Comments: Blueberry muffin and OJ please 04/25/23 0855 04/24/23 1131 Late Tray Diet Once (Routine) Comments: Pt will need tray for lunch. Thank you! 04/24/23 1131 04/24/23 1129 Adult Diet Restricted; Cardiac (Low Na, Low Chol) Diet effective now Question Answer Comment (MHB/MHE) Diet type Restricted Fat / Sodium Restriction: Cardiac (Low Na, Low Chol) 04/24/23 1130 04/23/23 1725 Late Tray Diet Once (Routine) Comments: Patient didn't get a dinner tray, not NPO til tonight at midnight 04/23/23 1736 04/23/23 1637 Diet message Once (Routine) Comments: Please send pot roast tray for dinner. Patient also requests strawberry ice cream, please, and a Wan for her drink. Thank you. 04/23/23 1638 04/15/23 2100 Bedtime snack At bedtime Comments: If bedtime BG is less than 100mg/dl, give patient a 15 gram carbohydrate snack. 04/15/23 1849 Anticoagulation Indication: INR: 04/15/2023: 1.3 (H) Warfarin Administrations (last 168 hours) None Oxygen Status: O2 Therapy for the past 12 hrs: O2 Therapy O2 Flow Rate (L/min) 04/26/23 0300 Supplemental oxygen 7 L/min 04/26/23 0021 Supplemental oxygen 7 L/min Wound Care Instructions Active LDAs (If Blank, None Found): Urethral Catheter (Active) Placement Date/Time: 04/16/23 0441 Inserted by: korina mendez RN Tube Size (Fr.): 16 Fr Catheter Balloon Size: 10 mL Urine Returned: Yes Patient Emergency Contact: Primary Emergency Contact: Suellen Resendiz Immunization Status at Discharge There is no immunization history on file for this patient. Willie Darling MD documented in this encounter Discharge Instructions * Discharge Instructions* Renae Navarro LPC - 04/23/2023 4:48 PM CDT MENTAL HEALTH CRISIS/URGENT CARE SERVICES National Suicide Prevention Hotline (Available by calling or texting 573 to speak with a counselor for support or additional resources) [place] [employer] 710-620-8300 (Crisis hotline) [facility] [phone] (Crisis hotline) Call for Help-Living Room Crisis Support [phone] (Immediate crisis and mental health support in a calm, comfortable environment) [facility]INSURED [facility] MEDICAID [facility] [phone] ([facility]) [place] [phone] ([facility]) SUBSTANCE USE TREATMENT [place] (AL option for treatment) [facility] (AL option for treatment) [facility] Off- [phone]- (AL option for assistance in locating treatment) * Discharge Instr - Diet* Radha Narvaez, MILLIE - 04/23/2023 3:51 PM CDT Continue to follow a consistent carbohydrate diet upon discharge. Avoid concentrated sweets such ascookies, cake, candy and ice cream. Also, avoid sugar-sweetened beverages such as lemonade, sweet tea, regular soda, juice and Gatorade. Eat 60g of carbohydrates at each meal. Eat 3 meals per day andtry to eat at consistent times. If interested, ask your doctor for referral to outpatient nutritioncounseling. Call [facility] Dietitian's office at [phone] for questions about your diet. Additional resources available from the [place] [employer] can be found at www.diabetes.org/nutrition documented in this encounter Medications at Time [...] Discharge Disposition Disposition Code Departure Means Destination Comment s Discharge to other short term GEN IP hosp with plan readmit [facility] Pt transferred to [facility]; pt belongings with pt; report given documented in this encounter Progress Notes * Bhakti Palacios - 04/25/2023 3:16 PM CDT 04/25/23 1500 Patient Spiritual Assessment Spirituality Assessed Yes Muslim Affiliation (No preference) Clinical Encounter Type Visited With Patient Pt stated she has no spiritual needs at this time. * Radha Narvaez RD - 04/25/2023 2:28 PM CDT Nutrition Follow-Up Reason for Assessment: Initial Nutrition Assessment and Consult/Referral Encounter Date: 04/25/23 2:49 PM Patient is a 32 y.o. female. Admit Dx: Shortness of breath [R06.02] Respiratory insufficiency [R06.89] Abdominal pannus [E65] Chronic wound infection of abdomen, initial encounter [S31.109A, L08.9] Heel ulceration, right, with unspecified severity (HCC) [L97.419] Diabetes mellitus with coincident hypertension (HCC) [E11.9, I10] Acute renal failure superimposed on chronic kidney disease, unspecified CKD stage, unspecified acute renal failure type (HCC) [N17.9, N18.9] Acute on chronic congestive heart failure, unspecified heart failure type (HCC) [I50.9]. Admitted on 04/15/2023, current LOS is 10 days. Nutrition Diagnosis 1: Increased nutrient needs (protein) Related to: Wounds Evidenced by: Physicalfinding, Patient interview ASPEN Malnutrition Assessment: Date of completion (or initial diagnosis): 04/25/23 Patient does not meet criteria for malnutrition based on ASPEN guidelines. Nutrition-focused physical exam (NFPE) findings: ASPEN/AND Malnutrition Screening: Patient does not meet malnutrition criteria ASSESSMENT AND INTERVENTION/RECOMMENDATIONS: Pt is a 32 y.o. female from home with PMHx of T2DM, HTN and left AKA in December admitted for Rectal bleed. Acknowledging consult for malnutrition assessment and need for supplements. Initially following for LOS x8. Pt refusing most care and recommendation of amputation. PO intake inconsistent. Pt expressed she has an appetite but does not like some of the food she receives. Lives with her motherwho makes all the meals. Eats 2 meals per day at home with minimal snacking. Checks BG once a day at night time. Recently started Trulicity. Significant weight change noted per EMR. Unsure of accuracy. Pt is unsure of any weight changes. Pt eating upon visit. NFPE to be performed at follow up. Order ed Ensure HP BID to promote wound healing. Provides additional 160 kcals and 16 g protein per serving. Encouraged PO intake to promote wound healing. 100% of lunch consumed today. Noted diet order change to regular diet from 4 CHO/meal. BG controlled at this time - monitor. Last BM: 04/22 per pt. [facility] hospital course. Will continue to monitor. 04/25/23: Following to assess PO and supplement intake. Upper GI endoscopy and flexible sigmoidoscopy performed yesterday for rectal bleeding. PO intake continues to be inconsistent. Pt reports that her appetite is somewhat improved. 50% of lunch consumed today. Encouraged PO intake to promote woundhealing. NFPE performed with pt consent. No physical findings of malnutrition evident. States she has not yet had an Ensure supplement delivered on her tray. Modified supplement order to be received at lunch rather than breakfast and dinner. Noted diet order change to cardiac - appropriate. Last BM: 04/24 per pt. Pt is on waiting list to transfer to [facility] for wound debridement. Will continue to monitor. EDUCATION NEEDED/COMPLETED? N/A GOALS / MONITORING: Goals: Oral intake to meet 75% estimated nutritional needs by next assessment, Promote wound healing Interventions: Medical food supplement, Encouragement, Initial assessment Monitoring and Evaluation: Appetite, Blood glucoses, Discharge plans, PO intake, Plan of care, Labs, I/O, Wound healing, Supplement tolerance Anthropometrics: Wt Readings from Last 10 Encounters: 04/21/23 (!) 161.9 kg (357 lb) 02/20/23 109 kg (240 lb 4.8 oz) Anthropometrics Weight: (!) 161.9 kg (357 lb) Admission Weight : 144.2 kg Weight Change: 0.90 kg (2.00 lbs) IBW/kg (Calculated) : 61.2 kg Height: 170.2 cm (5' 7 ) Weight in (lb) to have BMI = 25: 159.3 BMI (Calculated): 55.9 BMI Classification: BMI > or equal to 40.0 Class III Estimated Nutrition Needs: Calories Calculated Energy Needs Using Equations Weight Used for Equation Calculations (RD Determined): 61.6 kg (135 lb 12.9 oz) Weight: (!) 161.9 kg (357 lb) Height: 170.2 cm (5' 7 ) [place]- StDanial Guzman Equation (Overweight or Obese Patients): 1369 Equation Chosen to Use by RD: [place]-St Zechariahor Activity Factor: 1.2 Total Energy Needs: 1642.8 kcal Total Energy Needs + Fever Factor: 1642.8 Protein Estimated Protein Needs Type of Weight Used for Estimated Protein : [place] Protein Needs Based on g/k.2 (18% of total kcals) Total Protein Estimated Needs (gm): 73.44 Fluid Estimated Fluid Needs Type of Weight Used for Estimated Fluid Needs: [place] Fluid Needs Based on : 25 ml/kg Total Fluid Estimated Needs: 1530 Medications: 04/25/23 Current Facility-Administered Medications: acetaminophen bumetanide buPROPion Saline lock IV AND sodium chloride 0.9% AND sodium chloride 0.9% AND sodium chloride 0.9% sodium chloride 0.9% cefTRIAXone dextrose OR dextrose doxycycline ergocalciferol folic acid glucagon [Held by Provider] heparin HYDROmorphone insulin lispro insulin lispro ipratropium-albuteroL Lactated Ringer's Lactated Ringer's losartan metroNIDAZOLE miconazole ondansetron ODT OR ondansetron sodium chloride sodium chloride 0.9% sodium chloride 0.9% sodium chloride 0.9% spironolactone thiamine Lab Review: 04/25/23: HgbA1c 6.5 (date: 04/16/23), Creatinine 1.20 (H), Calcium 8.2 (L), Alk Phos 255 (H) Past Medical History: Diagnosis Date CHF (congestive heart failure) ([facility]) (HCC) CKD (chronic kidney disease) Diabetes mellitus (HCC) Hx of AKA (above knee amputation) ([facility]) ([facility]) Left Hypertension Past Surgical History: Procedure Laterality Date ABOVE KNEE LEG AMPUTATION Left Dietary Orders (From admission, onward) Start Ordered 04/25/23 0855 Late Tray Diet Once (Routine) Comments: Blueberry muffin and OJ please 04/25/23 0855 04/24/23 1131 Late Tray Diet Once (Routine) Comments: Pt will need tray for lunch. Thank you! 04/24/23 1131 04/24/23 1129 Adult Diet Restricted; Cardiac (Low Na, Low Chol) Diet effective now Question Answer Comment (MHB/MHE) Diet type Restricted Fat / Sodium Restriction: Cardiac (Low Na, Low Chol) 04/24/23 1130 04/23/23 1725 Late Tray Diet Once (Routine) Comments: Patient didn't get a dinner tray, not NPO til tonight at midnight 04/23/23 1736 04/23/23 1700 Oral Nutrition Supplements Select Supplement: Ensure High Protein - Chocolate; Quantity (# of cans): 1 can With Breakfast and Dinner Comments: Please rotate flavors. Question Answer Comment Select Supplement: Ensure High Protein - Chocolate Quantity (# of cans): 1 can 04/23/23 1612 04/23/23 1637 Diet message Once (Routine) Comments: Please send pot roast tray for dinner. Patient also requests strawberry ice cream, please, and a Starry for her drink. Thank you. 04/23/23 1638 04/15/23 2100 Bedtime snack At bedtime Comments: If bedtime BG is less than 100mg/dl, give patient a 15 gram carbohydrate snack. 04/15/23 1849 Diet Instructions Continue to follow a consistent carbohydrate diet upon discharge. Avoid concentrated sweets such ascookies, cake, candy and ice cream. Also, avoid sugar-sweetened beverages such as lemonade, sweet tea, regular soda, juice and Gatorade. Eat 60g of carbohydrates at each meal. Eat 3 meals per day andtry to eat at consistent times. If interested, ask your doctor for referral to outpatient nutritioncounseling. Call [facility] Dietitian's office at [phone] for questions about your diet. Additional resources available from the [place] [employer] can be found at [email or web address].[email or web address] Nutrition Follow-Up : 04/29/23 (PO/supp intake) Radha Narvaez RD Cosigned by Peggy Leblanc RD at 04/25/2023 2:52 PM CDT * Dante Stubbs MD - 04/25/2023 12:44 PM CDT Progress Note Infectious Diseases Chief complaint: Right calcaneal bone osteomyelitis. Type 2 diabetes. Obesity. Subjective Awaiting transferred to [facility] for debridement. Denies any fever. Some pain Objective Vitals: 04/25/23 1136 BP: 161/90 Pulse: 93 Resp: 18 Temp: 36.8 ??C (98.3 ??F) SpO2: 97% Constitutional: Alert, oriented x3. In no distress. Eyes: Sclerae anicteric, no conjunctival erythema Lungs: Clear breath sounds, no crackles, no wheezes Heart: Regular rate and rhythm, no murmurs Abdomen: Bowel sounds present, soft, nontender Skin: Warm and dry, No rashes Extremities: No edema Neuro: No motor deficit Psych: No anxiety Current Medications: Current Facility-Administered Medications Medication Dose Route Frequency Provider Last Rate Last Admin acetaminophen (TYLENOL) tablet 650 mg 650 mg oral Q4H PRN Amilcar Hancock MD bumetanide (BUMEX) tablet 2 mg 2 mg oral BID DIURETIC Golden Kidd MD 2 mg at 04/25/23 1010 buPROPion (WELLBUTRIN) tablet 50 mg 50 mg oral BID Hien Rabago MD 50 mg at 04/25/23 1010 sodium chloride 0.9% flush 0.5-20 mL 0.5-20 mL intra-catheter Q8H [facility] Amilcar Hancock MD 10 mL at04/25/23 0428 And sodium chloride 0.9% flush 0.5-20 mL 0.5-20 mL intra-catheter PRN Amilcar Hancock MD And Carrier Fluids for Secondary Infusion - 0.9% Sodium Chloride 30 mL intravenous PRN Amilcar Hancock MD 30 mL at 04/22/23 2054 Carrier Fluids for Secondary Infusion - 0.9% Sodium Chloride 30 mL intravenous PRN Hien Rabago MD cefTRIAXone (ROCEPHIN) 2,000 mg/20 mL in sterile water (premix) 2,000 mg 2,000 mg intravenous Q24H [facility] Dante Stubbs MD 2,000 mg at 04/25/23 1009 DAPTOmycin (CUBICIN) 50 mg/mL sodium chloride 0.9% 700 mg 700 mg intravenous Q24H Amilcar Hancock MD 700 mg at 04/24/23 1519 dextrose (GLUTOSE) 40 % gel 15 g 15 g oral Q15 Min PRN Amilcar Hancock MD 15 g at 04/22/23 1155 Or dextrose (D10W) 10% bolus 250 mL 250 mL intravenous Q15 Min PRN Amilcar Hancock MD ergocalciferol (VITAMIN D) capsule 50,000 Units 50,000 Units oral Weekly Golden Kidd MD 50,000 Units at 04/17/23 1437 folic acid (FOLVITE) tablet 1 mg 1 mg oral Daily Hien Rabago MD 1 mg at 04/25/23 1010 glucagon injection 1 mg 1 mg intramuscular Q30 Min PRN Amilcar Hancock MD [Held by Provider] heparin 5,000 unit/mL injection 7,500 Units 7,500 Units subcutaneous Q8H ERICK Amilcar Hancock MD 7,500 Units at 04/22/23 1520 HYDROmorphone (DILAUDID) injection 0.5 mg 0.5 mg intravenous Q4H PRN Hien Rabago MD 0.5 mgat 04/18/23 1818 insulin lispro (HumaLOG, ADMELOG) 100 unit/mL injection 0-4 Units 0-4 Units subcutaneous Nightly Amilcar Hancock MD 1 Units at 04/24/23 2121 insulin lispro (HumaLOG, ADMELOG) 100 unit/mL injection 0-5 Units 0-5 Units subcutaneous TID with meals Amilcar Hancock MD 1 Units at 04/25/23 1206 ipratropium-albuteroL (DUO-NEB) 0.5-2.5 mg/3 mL nebulizer solution 3 mL 3 mL nebulization Q4H PRN (RT) Darell Paniagua MD 3 mL at 04/22/23 0305 Lactated Ringer's (LR) infusion 30 mL/hr intravenous Continuous Rowan Hendricks MD Lactated Ringer's (LR) infusion 125 mL/hr intravenous Continuous Rowan Hendricks MD 125 mL/hr at 04/24/23 1311 125 mL/hr at 04/24/23 1311 losartan (COZAAR) tablet 50 mg 50 mg oral Daily Golden Kidd MD 50 mg at 04/25/23 1010 metroNIDAZOLE (FLAGYL) tablet 500 mg 500 mg oral TID Dante Stubbs MD 500 mg at 04/25/23 1010 miconazole 2 % powder topical BID Willie Castro MD Given at 04/25/23 1011 ondansetron ODT (ZOFRAN-ODT) disintegrating tablet 4 mg 4 mg oral Q6H PRN Amilcar Hancock MD Or ondansetron (ZOFRAN) injection 4 mg 4 mg intravenous Q6H PRN Amilcar Hancock MD 4 mg at 04/23/23 1827 sodium chloride (OCEAN) 0.65 % nasal spray 1 spray 1 spray each nostril Q2H PRN Darell Paniagua MD sodium chloride 0.9% flush 5-20 mL 5-20 mL intra-catheter PRN Hien Rabago MD sodium chloride 0.9% flush 5-20 mL 5-20 mL intra-catheter PRN Dante Stubbs MD sodium chloride 0.9% infusion 30 mL/hr intravenous Continuous Marilin Garcia MD 30 mL/hr at 04/24/23 0946 Restarted at 04/24/23 0957 spironolactone (ALDACTONE) tablet 50 mg 50 mg oral BID DIURETIC Golden Kidd MD 50 mg at 04/25/23 1010 thiamine (VITAMIN B-1) tablet 50 mg 50 mg oral Daily Hien Rabago MD 50 mg at 04/25/23 1010 No Known Allergies Social History Tobacco Use Smoking status: Never Smokeless tobacco: Never Substance and Sexual Activity Drug use: Never Sexual activity: None Alcohol Use: Not on file History reviewed. No pertinent family history. Lab Results Component Value Date HGBA1C 6.5 (H) 04/16/2023 TSH 4.01 04/16/2023 TIBC 186 (L) 04/16/2023 INR 1.3 (H) 04/15/2023 DDIMER 4,470 (H) 04/19/2023 CHOLHDL 3 04/17/2023 HCT 26.9 (L) 04/25/2023 MCH 25.8 (L) 04/25/2023 MCV 86.8 04/25/2023 MPV 9.3 04/25/2023 HDL 38 (L) 04/17/2023 RBC 3.10 (L) 04/25/2023 RDW 11.7 12/13/2017 WBC 17.9 (H) 04/25/2023 Assessment/Plan 1. Right diabetic foot infection with osteomyelitis of calcaneal bone and chronic necrotic ulcer. Apparently patient is to be transferred to [facility] for debridement. Patient has been accepted at that hospital. Continue Rocephin, daptomycin and Flagyl day 10. CPK is elevated at 1085. Stop daptomycin continue Rocephin and Flagyl for now. If extended Gram-negative coverage required will add IV doxy. 2. Leukocytosis white count at 17. Most likely secondary to ongoing infection. 3. Congestive heart failure. Complained of intermittent shortness of breath with exertion. 4. Type 2 diabetes better controlled. Blood sugars ranging between 157-204 5. Chronic kidney disease Dante Stubbs MD [facility] Infectious Disease [place] Office [phone] * Esthela Carmen, REFINISHER - 04/25/2023 11:10 AM CDT Physical Therapy 04/25/23 1110 PT Last Visit Session Type Treatment PT Received On 04/25/23 Safe Environment Arm band checked Subjective Agreeable to Therapy Precautions Precautions Bed/Chair Alarm;Fall risk Weight Bearing Restrictions Yes RLE Weight Bearing NWB Precaution Comments tele, catheter,prevalon boot rt, low vision. O2 Activity Tolerance Endurance Tolerates 10 - 20 min activity with multiple rests Static Sitting Balance Static Sitting-Balance Support Bilateral upper extremity supported;Feet supported Static Sitting-Sitting Surface Bed Static Sitting-Level of Assistance Contact guard;Minimum assistance Static Sitting-Comment/# of Minutes ~8 minutes,level of assistanc fluctuates, fair- Seated Seated-Exercises Lower extremity Reps/Sets 10/ Seated-Motion AROM;AAROM Seated-Exercise Comments ankle rom, laq, hip flex, hip abd Bed Mobility 1 Bed Mobility From 1 Supine Bed Mobility Type 1 To and from Bed Mobility to 1 Edge of bed Level of Assistance 1 Maximum Assist Bed Mobility Comments 1 +2 for safety. Max+2 to scoot to EOB. Safe Environment End of Therapy Session Safe Environment End of Therapy Session Patient left supine in bed;Call light within reach;Overbed table within reach;Bed in lowest position with wheels locked Assessment Problem List Comments Spoke with PT Jessica Salazar to change from IP rehab to SNF, Poor endurance and tolerance Recommendation/Plan PT Recommendation/Plan Correction Facility Recommend SNF due to Risk of injury at home;Unable to safely care for self in the home;Skilled therapy needed to address care for self in the home;Skilled therapy needed to address functional deficits;Skilled therapy needed for patient to return to prior level of independence Treatment/Interventions during current admission Balance Training;Bed mobility;Functional activity Assisted by ASIF Jhaveri Educated the patient to the role of physical therapy, plan of care, goals of therapy, rationale forprogressing mobility and pursed lip breathing. Patient was left with all needs met and equipment intact. Mobility and ADL status posted at bedsideand within medical record. Multi-Disciplinary Problems (from Physical Therapy) Active Problems Problem: Transfers Start Date: 04/22/23 Goal Start Date Expected End Date End Date STG - Patient to transfer to and from sit to supine 04/22/23 05/05/23 -- Goal Details: With Min A +2, and cues. NOT MET Goal Start Date Expected End Date End Date STG - Patient will perform bed mobility 04/22/23 05/05/23 -- Goal Details: With bed rails, with Min A +1, and cues. NOT MET Problem: Balance Start Date: 04/22/23 Goal Start Date Expected End Date End Date STG - Maintains static sitting balance with upper extremity support 04/22/23 05/05/23 -- Goal Details: For 15 minutes, while sitting on EOB and working on seated ex's and seated daily activities, with supervision of 1, and cues. Pt to progress to seated activities without UE support, andadvance to seated resistive band ex's at bedside. Progressing Problem: PT Misc Start Date: 04/22/23 Goal Start Date Expected End Date End Date PT LTG - Misc 1 04/22/23 05/05/23 -- Goal Details: The Pt will perform Therapeutic AROM ex's for B UE's and B LE's, in supine or in sitting, 1 set of 10 reps, daily, with cues, in pain-free ROM, and with Therapeutic Rest Breaks, as needed. The Pt will progress to strengthening ex's for B UE's, for biceps and triceps, with light-resistance exercise bands, as able. NT Goal Start Date Expected End Date End Date PT LTG - Misc 2 04/22/23 05/05/23 -- Goal Details: The Pt will advance to bed <-> drop arm cardiac chair sliding board transfers, with Mod A +2, as cedric., with care taken to avoid shearing forces on Pt's buttocks and limited WB'ingthru Pt's R LE, while R foot rests on the floor for sliding board transfer. (Pt may need stephany liftpad in chair before Pt gets up to cardiac chair. However, as Pt has old L AKA, if stephany lift is used , care to be taken). NT Reviewed By Alyson Maradiaga RN 04/24/23 1600 Eunice Ferguson RN 04/21/23 0413 Eunice Ferguson RN 04/20/23 0459 * Golden Kidd MD - 04/25/2023 9:25 AM CDT Renal Progress Note Admit Date: 04/15/2023 Days: 10 Reason for Follow up: Acute on chronic kidney failure Clinical Course/New Symptoms Lying in bed no shortness of breath reported Data Vitals: 04/25/23 0739 BP: 161/90 Pulse: 95 Resp: 18 Temp: 36.8 ??C (98.3 ??F) SpO2: 93% f breath Exam Constitutional: alert and oriented. Appears well-developed and well-nourished, in no distress. HighBMI Head: Normocephalic. Eyes: No icterus, extraocular movements normal Neck: Neck supple. Cardiovascular: Normal rate and regular rhythm. No murmur heard. Pulmonary/Chest: Diminished breath sounds bilaterally, on oxygen via nasal cannula. Abdominal: Soft. Musculoskeletal: Right lower extremity edema. Heel ulcer is visible. Neurological: alert and moves all 4 limbs. Skin: No rashes Intake/Output Summary (Last 24 hours) at 04/25/2023 0961 Last data filed at 04/25/2023 0838 Gross per 24 hour Intake 220 ml Output 550 ml Net -330 ml MEDICATIONS FOR CURRENT ENCOUNTER: SCHEDULED MEDICATIONS: Scheduled Medications Medication Dose Route Frequency bumetanide (BUMEX) tablet 2 mg 2 mg oral BID DIURETIC buPROPion (WELLBUTRIN) tablet 50 mg 50 mg oral BID cefTRIAXone (ROCEPHIN) 2,000 mg/20 mL in sterile water (premix) 2,000 mg 2,000 mg intravenous Q24H ERICK DAPTOmycin (CUBICIN) 50 mg/mL sodium chloride 0.9% 700 mg 700 mg intravenous Q24H ergocalciferol (VITAMIN D) capsule 50,000 Units 50,000 Units oral Weekly folic acid (FOLVITE) tablet 1 mg 1 mg oral Daily [Held by Provider] heparin 5,000 unit/mL injection 7,500 Units 7,500 Units subcutaneous Q8H ERICK insulin lispro (HumaLOG, ADMELOG) 100 unit/mL injection 0-4 Units 0-4 Units subcutaneous Nightly insulin lispro (HumaLOG, ADMELOG) 100 unit/mL injection 0-5 Units 0-5 Units subcutaneous TID with meals losartan (COZAAR) tablet 50 mg 50 mg oral Daily metroNIDAZOLE (FLAGYL) tablet 500 mg 500 mg oral TID miconazole 2 % powder topical BID potassium chloride ER (KLOR-CON) extended release tablet 40 mEq 40 mEq oral Once sodium chloride 0.9% flush 0.5-20 mL 0.5-20 mL intra-catheter Q8H ERICK spironolactone (ALDACTONE) tablet 50 mg 50 mg oral BID DIURETIC thiamine (VITAMIN B-1) tablet 50 mg 50 mg oral Daily CONTINUOUS MEDICATIONS: Current Facility-Administered Medications Medication Dose Route Frequency Last Admin Lactated Ringer's 30 mL/hr intravenous Continuous Lactated Ringer's 125 mL/hr intravenous Continuous 125 mL/hr at 04/24/23 1311 sodium chloride 0.9% 30 mL/hr intravenous Continuous Restarted at 04/24/23 0957 PRN MEDICATIONS: PRN Medications Medication Dose Route Frequency Last Admin acetaminophen (TYLENOL) tablet 650 mg 650 mg oral Q4H PRN sodium chloride 0.9% flush 0.5-20 mL 0.5-20 mL intra-catheter PRN And Carrier Fluids for Secondary Infusion - 0.9% Sodium Chloride 30 mL intravenous PRN 30 mL at 04/22/23 2054 Carrier Fluids for Secondary Infusion - 0.9% Sodium Chloride 30 mL intravenous PRN dextrose (GLUTOSE) 40 % gel 15 g 15 g oral Q15 Min PRN 15 g at 04/22/23 1155 Or dextrose (D10W) 10% bolus 250 mL 250 mL intravenous Q15 Min PRN glucagon injection 1 mg 1 mg intramuscular Q30 Min PRN HYDROmorphone (DILAUDID) injection 0.5 mg 0.5 mg intravenous Q4H PRN 0.5 mg at 04/18/23 1818 ipratropium-albuteroL (DUO-NEB) 0.5-2.5 mg/3 mL nebulizer solution 3 mL 3 mL nebulization Q4H PRN (RT) 3 mL at 04/22/23 0305 ondansetron ODT (ZOFRAN-ODT) disintegrating tablet 4 mg 4 mg oral Q6H PRN Or ondansetron (ZOFRAN) injection 4 mg 4 mg intravenous Q6H PRN 4 mg at 04/23/23 1827 sodium chloride (OCEAN) 0.65 % nasal spray 1 spray 1 spray each nostril Q2H PRN sodium chloride 0.9% flush 5-20 mL 5-20 mL intra-catheter PRN sodium chloride 0.9% flush 5-20 mL 5-20 mL intra-catheter PRN My review of labs, imaging, notes and other tests is significant for Recent Labs Lab Units 04/24/23 2035 04/24/23 0758 04/23/23 2144 WBC K/cumm 17.2* 16.6* 17.6* HEMOGLOBIN g/dL 8.3* 7.9* 8.1* HEMATOCRIT % 27.7* 26.7* 26.2* PLATELETS K/cumm 523* 500* 490* . Recent Labs Lab Units 04/25/23 0724 04/24/23200204/24/23 1613 04/24/23 0739 04/24/23 0620 04/23/23 1207 04/23/23 0923 04/22/23 0735 04/22/23 0625 SODIUM mmol/L -- -- -- -- 143 -- 143 -- 144 POTASSIUM PLASMA mmol/L -- -- -- -- 3.3 -- 3.3 -- 3.5 CHLORIDE mmol/L -- -- -- -- 105 -- 106 -- 107 CO2 mmol/L -- -- -- -- 31 -- 29 -- 28 CREATININE mg/dL -- -- -- -- 1.20* -- 1.30* -- 1.40* GLUCOSE mg/dL -- -- -- -- 126 -- 106 -- 71 POC GLUCOSE MONITOR mg/dL 157 204* 163 < > -- < > -- < > -- CALCIUM mg/dL -- -- -- -- 8.3* -- 8.3* -- 8.3* ALBUMIN g/dL -- -- -- -- 2.1* -- 2.0* -- 1.9* PHOSPHORUS PLASMA mg/dL -- -- -- -- 2.9 -- 3.0 -- 3.2 < > = values in this interval not displayed. .No lab exists for component: COLORUA, CHARACTERUA, SPECGRAVUA, PHUA, PROTEINUA, BLOODUA, LEUKOCYTEUA, NITRITEUA, GLUCOSEUA, KETONEUA, BILIRUBINUA, UROBILINUA, WBCUA, RBCUA, EPITHUA, MUCUSUA, CASTUA,CRYSTALUA, BACTERIAUA, YEASTUA, TRICHUA NM GI Bleed Study EXAM DESCRIPTION: NM GI BLEED STUDY RADIOPHARMACEUTICAL: 22 mCi Tc-99m in vitro labeled autologous red blood cells via a right arm PICC line IV site REASON FOR STUDY: GI bleed. Shortness of breath and cough for 2 weeks. Nausea and vomiting. Report of bright-red, jelly like loose stool last night. Hemoglobin 7.9. TECHNIQUE: Sequential anterior scintigrams of the abdomen were obtained after radiopharmaceutical administration. COMPARISON: None available FINDINGS: No abnormal foci of labeled red blood cell extravasation are seen. IMPRESSION: No evidence for active gastro-intestinal bleeding. Consider further evaluation with abdominopelvic CT as clinically appropriate. THIS IS AN ELECTRONICALLY VERIFIED FINAL REPORT 04/23/2023 9:42 AM - Electronically signed by Primo Mccarthy M.D. T: Report ID: [id number] Reading Location: [id number] Assessment and Plan Principal Problem: Rectal bleed Active Problems: Acute diastolic congestive heart failure (CMS/HCC) (HCC) Type II diabetes mellitus with foot ulcer (HCC) Hypertension Acute respiratory failure with hypoxia (CMS/HCC) (HCC) Diarrhea Acute kidney failure (HCC) Elevated troponin Osteomyelitis (HCC) Wounds, multiple Resolved Problems: No resolved hospital problems. BOBBY on CKD in the setting of significant volume overload/pulmonary edema, unclear whether has obstructive uropathy as well, will check a postvoid residual. Does appear quite volume overloaded and will initiate IV furosemide. Obtaining a urinalysis with microscopy as well as a spot urine protein to c reatinine ratio as albumin is 1.8, likely has significant proteinuria. May need to order autoimmuneserology if active UA sediment. Echocardiogram is pending, previous echo with adequate EF and mild diastolic dysfunction. Obtaining a renal ultrasound as well. No acute need for dialysis and hopefully to respond to diuretics. Does have significant leukocytosis may have underlying infection, blood cultures pending, initiated on empiric antibiotics as well. 04/16/2023 Denies any urinary symptoms. Continue furosemide 80 mg IV b.i.d.. Has sub nephrotic proteinuria was1.8 g per g as per a spot sample. Continues to have significantly high leukocytosis. On antibiotics. Urine output noted, probably incomplete. Anemia. Will check iron profile, B12 and folate. Monitor urine output accurately. 2D echo is pending. 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 Noted vascular surgery recommendations regarding a rightabove-knee amputation which the patient declines. 04/17 Serum creatinine down to 2.1 today. Continue diuretics. Serum albumin 1.3. Multifactorial hypoalbuminemia. Non nephrotic range albuminuria previously unlikely primarily secondary to chronic inflammation. Reported diabetic retinopathy with potential need for intervention. Would hold off on prophylactic 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 for now in the setting of hypoalbuminemia. Plans are for PICC line with prolonged antibiotics for attempted limb salvage. Prognosis is extremely guarded. Started on folate and ironreplacement and will add vitamin-D replacement as well given deficiency. 04/18 Creatinine is improving. Down to 1.80. K 3.7, UOP 5000 ml yesterday. Improved creatinine with diuresis. BP 147/77 but variable and lower at times. 2 D Echo with normal EF but with diastolic dysfunction. Likely diabetic kidney disease in the setting of longstanding diabetes as well as diabetic retinopathy. Continue diuresis with furosemide at current dose of 80 mg IV b.i.d.. He is diuresing well. On antibiotics as per primary team/ID/vascular for the diabetic foot infection. She does not have a good appetite and this may be due to her ongoing infection. Likely not related to diminished renal function. Avoid hypotension and nephrotoxins. 04/19/23 Urine output 4-5 0 mL yesterday. Blood pressure 143/78 mmHg. Potassium 3.6, creatinine 1.70 (improved from 1.80 yesterday). Albumin is 1.3. On furosemide 80 mg IV q.12. Adding spironolactone 25 mg p.o. b.i.d.. Will try convert to oral furosemide in the near future. Significant hypoalbuminemia, likely effect of long-term malnutrition, chronic inflammation/infection, proteinuria. Improving nutrition will help but may not be possible without complete treatment of the infection. Monitor electrolytes and adjust spironolactone accordingly. 04/20/2023 Impressive diuresis with a combination of intravenous furosemide and oral spironolactone. Made 6.4 L of urine yesterday. Creatinine continues to decline and is down to 1.50 today. Blood pressure is reasonable at 139/76 mmHg. No hypotension at this time. Will continue current regimen with intravenous furosemide and oral spironolactone and hopefully convert to oral furosemide in the next few days. 04/21/2023 Urine output of 6850 mL yesterday. Blood pressures adequately controlled. Labs from today are stillpending. Continues to need 4 L of oxygen via nasal cannula. Serum albumin is exceedingly low at 1.3. Likely multifactorial including malnutrition, chronic infection, albuminuria contributing to the hy poalbuminemia. CXR continues to show moderate to severe bilateral airspace opacities have increasedwhen compared to 04/19/2023. Will give her a few doses of albumin in the setting of significant hypoalbuminemia. Will need improvement in nutrition, treatment of infection, for the albumin levels to improve. Continue current dose of intravenous furosemide with oral spironolactone since she is achieving significant diuresis with his combination. Chest x-ray continued to show moderate to severe bilateral airspace opacities and hence will continue diuresis. Pulmonary is on board. 04/22 Serum creatinine stable at 1.4, receiving temporary albumin infusions given severe hypoalbuminemia.Continue diuretics. Potassium 3.5 and mildly hypertensive will increase spironolactone to 50 mg b.i.d.. Chest x-ray slightly improved. Will increase furosemide to t.i.d. for now 04/23 Chemistry panel pending this morning, good urine output with adjustment in diuretics yesterday and will continue for now as remaining hemodynamically stable. Await nuclear study and continues on antibiotics. 04/24 No evidence of active bleeding on study yesterday. Serum creatinine down to 1.2. Hypokalemic and replacement ordered. Does continue on spironolactone 50 mg b.i.d. along with IV furosemide. I will convert to an oral loop diuretic to see if she responds adequately. Given current blood pressure readings and hypokalemia will add a low-dose of an ARB to her regimen as well 04/25 Chemistry panel pending this morning. Urine output decreased with transition to oral diuretics. No emergent need for aggressive diuresis and will monitor response today and re-evaluate. Started on a low-dose ARB yesterday and can titrate up. Will await labs before making any adjustments. Thank you. Golden Kidd MD [facility] Nephrology and Hypertension Office: [phone] * Willie Castro MD - 04/25/2023 9:23 AM CDT General Medicine Daily Progress DOA: 04/15/2023 Subjective The patient was seen and examined at bedside, she is hemodynamically stable AO x3. The patient saidshe is feeling better, patient change her code status to DNR/DNI POLST form was signed. Interval history: The patient is a 32 year female with past medical history of type 2 diabetes, essential hypertension, CHF with preserved ejection fraction and left AKA was admitted in hospital for acute on chronic CHF exacerbation, she was also found to have an ulcer on the right foot. Id was consulted for antibiotic management they recommended ceftriaxone and daptomycin plus Flagyl currently on day 10. Her WBC count slightly trended up to 17,000 Vascular surgery evaluated the patient they recommended an amputation but patient refused, arterialDoppler done on the 14 showed normal in the wave form on the right lower extremity with no significant distal ischemia. Podiatry is not actively seen patient this week, I discussed with the General surgery they usually do not do debridement of the lower extremities,We contacted transfer center, we are discussing the case with [facility] for possible transfer given the fact we have no podiatry service active in our hospital. [facility], he said they do not do a debridement by his service, he will recommend an amputation or debridement by general surgery. I contacted [facility] team discussed with the hospitalist team (Dr. Elder) they agree for transfer surgical team agree for consultation for possible debridement. Patient also presented with acute hypoxic respiratory failure secondary to pulmonary edema in the context of sepsis, pulmonary was consulted they recommended the patient to be put on bronchodilators and patient also receiving IV Lasix. Patient also presented with BOBBY on CKD this is why nephrology was consulted has been following the case, they determined the patient has significant proteinuria, they recommended to increase Lasix tot.I.d. During the night of April 22 was agitated overnight she removed the oxygen she became hypoxic, patient stated again she does not want to pursue an amputation, code status was switched to DNR after palliative Care evaluate needed the patient discussed advanced care planning with her. During the afternoon of April 22 nursing staff showed the patient having bright red blood per rectum, H&H has remained stable FOBT was negative we had a discussion with GI they recommended bleeding scan given the patient BOBBY, bleeding scan was done and showed no evidence of active bleeding. GI evaluated the patient and took the patient today for upper endoscopy and sigmoidoscopy, sigmoidoscopyreported nonbleeding internal hemorrhage which likely the cause of the rectal bleeding, upper endoscopy showed normal esophagus and gastritis Past Medical History: Diagnosis Date CHF (congestive heart failure) (CMS/HCC) (HCC) CKD (chronic kidney disease) Diabetes mellitus (HCC) Hx of AKA (above knee amputation) (CMS/HCC) (HCC) Left Hypertension Objective Vitals: 24hr Min/Max: Temp Min: 36.1 ??C (97 ??F) Max: 37.5 ??C (99.5 ??F) Pulse Min: 84 Max: 99 BP Min: 142/86 Max: 175/89 Resp Min: 10 Max: 24 SpO2 Min: 90 % Max: 96 % Most Recent : Vitals: 04/25/23 0739 BP: 161/90 Pulse: 95 Resp: 18 Temp: 36.8 ??C (98.3 ??F) SpO2: 93% I/O last 2 completed shifts: In: 100 [I.V.:100] Out: 1300 [Urine:1300] I/O this shift: In: 120 [P.O.:120] Out: - Physical Exam: Physical Exam Constitutional: Appearance: She is well-developed. She is obese. She is ill-appearing. She is not diaphoretic. HENT: Head: Normocephalic. Mouth/Throat: Mouth: Mucous membranes are moist. Eyes: Pupils: Pupils are equal, round, and reactive to light. Neck: Thyroid: No thyromegaly. Vascular: No JVD. Cardiovascular: Rate and Rhythm: Normal rate and regular rhythm. Pulmonary: Effort: Pulmonary effort is normal. No tachypnea. Breath sounds: Examination of the right-lower field reveals rales. Examination of the left-lower field reveals rales. Decreased breath sounds and rales present. No wheezing or rhonchi. Chest: Chest wall: No mass. Abdominal: General: Bowel sounds are normal. Palpations: Abdomen is soft. There is no hepatomegaly. Musculoskeletal: General: Normal range of motion. Cervical back: Normal range of motion. Right lower leg: Edema present. Comments: Left AKA Skin: General: Skin is warm. Capillary Refill: Capillary refill takes less than 2 seconds. Coloration: Skin is not pale. Findings: Ecchymosis and erythema present. No rash. Neurological: General: No focal deficit present. Mental Status: She is alert and oriented to person, place, and time. Psychiatric: Mood and Affect: Mood normal. Lab/Radiology/Diagnostic Review: Laboratory review: Chemistry BMP Lab Results Component Value Date GLUCOSE 157 04/25/2023 GLUCOSE 126 04/24/2023 CALCIUM 8.3 (L) 04/24/2023 SODIUM 143 04/24/2023 POTASSIUM 3.3 04/24/2023 CO2 31 04/24/2023 BUNSER 14 04/24/2023 CREATININE 1.20 (H) 04/24/2023 and CBC: Lab Results Component Value Date WBC 17.2 (H) 04/24/2023 RBC 3.14 (L) 04/24/2023 HGB 8.3 (L) 04/24/2023 HCT 27.7 (L) 04/24/2023 MCV 88.2 04/24/2023 MCH 26.4 (L) 04/24/2023 MCHC 30.0 (L) 04/24/2023 RDWCV 17.2 (H) 04/24/2023 RDWSD 54.1 (H) 04/24/2023 MPV 9.1 04/24/2023 NRBCABS 0.02 (H) 04/24/2023 Current Facility-Administered Medications Medication Dose Route Frequency Provider Last Rate Last Admin acetaminophen (TYLENOL) tablet 650 mg 650 mg oral Q4H PRN Amilcar Hancock MD albumin 25 % bottle 25 g 25 g intravenous TID Dallas Peña MD sodium chloride 0.9% flush 0.5-20 mL 0.5-20 mL intra-catheter Q8H [facility] Amilcar Hancock MD 10 mL at04/21/23 1304 And sodium chloride 0.9% flush 0.5-20 mL 0.5-20 mL intra-catheter PRN Amilcar Hancock MD And Carrier Fluids for Secondary Infusion - 0.9% Sodium Chloride 30 mL intravenous PRN Amilcar Hancock MD cefTRIAXone (ROCEPHIN) 2,000 mg/20 mL in sterile water (premix) 2,000 mg 2,000 mg intravenous Q24H Dante Fitzgerald MD 2,000 mg at 04/21/23 0909 DAPTOmycin (CUBICIN) 50 mg/mL sodium chloride 0.9% 700 mg 700 mg intravenous Q24H Amilcar Hancock MD 700 mg at 04/21/23 1303 dextrose (GLUTOSE) 40 % gel 15 g 15 g oral Q15 Min PRN Amilcar Hancock MD Or dextrose (D10W) 10% bolus 250 mL 250 mL intravenous Q15 Min PRN Amilcar Hancock MD ergocalciferol (VITAMIN D) capsule 50,000 Units 50,000 Units oral Weekly Golden Kidd MD 50,000 Units at 04/17/23 1437 folic acid (FOLVITE) tablet 1 mg 1 mg oral Daily Hien Rabago MD 1 mg at 04/21/23 0908 furosemide (LASIX) 10 mg/mL injection 80 mg 80 mg intravenous BID DIURETIC Amilcar Hancock MD 80 mg at 04/21/23 0908 glucagon injection 1 mg 1 mg intramuscular Q30 Min PRN Amilcar Hancock MD heparin 5,000 unit/mL injection 7,500 Units 7,500 Units subcutaneous Q8H ERICK Amilcar Hancock MD 7,500 Units at 04/21/23 1304 HYDROmorphone (DILAUDID) injection 0.5 mg 0.5 mg intravenous Q4H PRN Hien Rabago MD 0.5 mgat 04/18/23 1818 insulin glargine (LANTUS, SEMGLEE) 100 unit/mL injection 22 Units 0.15 Units/kg subcutaneous Nightly Amilcar Hancock MD 22 Units at 04/19/23 2151 insulin lispro (HumaLOG, ADMELOG) 100 unit/mL injection 0-4 Units 0-4 Units subcutaneous Nightly Amilcar Hancock MD insulin lispro (HumaLOG, ADMELOG) 100 unit/mL injection 0-5 Units 0-5 Units subcutaneous TID with meals Amilcar Hancock MD insulin lispro (HumaLOG, ADMELOG) 100 unit/mL injection 7 Units 0.05 Units/kg subcutaneous TID withmeals Amilcar Hancock MD 7 Units at 04/16/23 180 ipratropium-albuteroL (DUO-NEB) 0.5-2.5 mg/3 mL nebulizer solution 3 mL 3 mL nebulization Q4H PRN (RT) Darell Paniagua MD metroNIDAZOLE (FLAGYL) tablet 500 mg 500 mg oral TID Dante Stubbs MD 500 mg at 04/21/23 0908 ondansetron ODT (ZOFRAN-ODT) disintegrating tablet 4 mg 4 mg oral Q6H PRN Amilcar Hancock MD Or ondansetron (ZOFRAN) injection 4 mg 4 mg intravenous Q6H PRN Amilcar Hancock MD sodium chloride (OCEAN) 0.65 % nasal spray 1 spray 1 spray each nostril Q2H PRN Darell Paniagua MD sodium chloride 0.9% flush 5-10 mL 5-10 mL intra-catheter Q12H ERICK Hien Rabago MD 10 mL at04/21/23 0920 sodium chloride 0.9% flush 5-20 mL 5-20 mL intra-catheter PRN Hien Rabago MD spironolactone (ALDACTONE) tablet 25 mg 25 mg oral BID DIURETIC Dallas Peña MD 25 mg at 04/21/23 0908 thiamine (VITAMIN B-1) tablet 50 mg 50 mg oral Daily Hien Rabago MD 50 mg at 04/21/23 0908 Assessment/Plan Principal Problem: Rectal bleed Active Problems: Acute diastolic congestive heart failure (CMS/HCC) ([facility]) Type II diabetes mellitus with foot ulcer ([facility]) Hypertension Acute respiratory failure with hypoxia (CMS/HCC) ([facility]) Diarrhea Acute kidney failure ([facility]) Elevated troponin Osteomyelitis ([facility]) Wounds, multiple Plan # acute hypoxemic respiratory failure 2/2 CHF exacerbation with acute heart failure On 7 L supplemental oxygen -patient is morbidly obese, likely OHS component -echocardiogram to rule out heart failure exacerbation -patient was switched to Bumex 2 mg daily and spironolactone # COPD -improved respiratory distress -continue bronchodilator -Pulmonary is following # iron-deficiency anemia and folate deficiency - completed IV iron sucrose - start on oral ferrous sulfate # acute osteomyelitis of the right foot calcaneum # abdominal wall infection panniculitis - afebrile, improved leukocytosis - on ceftriaxone and Flagyl day 10, daptomycin day 10 - podiatry would not available for wound debridement - general surgery was consulted for right foot wound debridement yesterday - PICC line in place for discharge planning - We dicussed the case with Dr. Cook and [facility] who refused the patient for transfer, he said they do not do a debridement by his service, he will recommend an amputation or debridement by general surgery. -I contacted [facility] team discussed with the hospitalist team (Dr. Elder) they agree for transfer surgical team agree for consultation for possible debridement. -the patient is accepted for transfer at [facility] # diabetes mellitus - blood glucose is at goal continue current dose. Fasting glucose was 157 # CKD 3A secondary to possible nephrotic syndrome Stable - Fortune catheter in place -follow renal consult recommendation - switched to Bumex # PVD - vascular surgery recommended amputation but patient refused. At this point waiting for recommendations from General surgery, Podiatry is not active at this moment. -discuss with [facility] team patient is to be transfer she will be evaluated by the surgical team over there for possible debridement -arterial Doppler done on the 14 showed normal in the wave form on the right lower extremity with no significant distal ischemia Questionable GI bleed Put on hold DVT prophylaxis. H&H has remained stable GI consult appreciated Bleeding scan was negative GI evaluated the patient and took the patient today for upper endoscopy and sigmoidoscopy, sigmoidoscopy reported nonbleeding internal hemorrhage which likely the cause of the rectal bleeding, upper endoscopy showed normal esophagus and gastritis DVT prophylaxis: On hold Heparin patient was given sequential device GI prophylaxis: Ppi Rehab consult: Ongoing CODE status: LIMITED - No CPR Discharge disposition: SNF It took me 36 minutes review the case, place pertinent orders, discussed current findings with the patient and examined her. * Darell Paniagua MD - 04/25/2023 6:06 AM CDT Progress Note Patient: Leeroy Canales ( - 1990) is a 32 y.o. female. Visit Date: 04/15/2023 Chief Complaint Patient presents with Shortness of Breath History of Present Illness: The patient is pleasant 32-year-old female who is bed-bound. 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 She is been taking care of by her mom and her sister. She does have history of diabetes. She does not smoke. She presented the emergency room complaining of progressive shortness of breath and cough for the past week or 2. Patient also was having trouble with a wound to her right foot and she is been having nausea. Her initial lab work showed creatinine 2 point 7, alk-phos 381 and albumin 1.8, ABGs showed pH 7.40, pCO2 36 and PO2 49 on room air, her WBC was 111[address]. Urinalysis showed UTI. Chest x-ray showed Findings are suggestive of pulmonary edema. Her V/Q scan was negative, her D-dimer was elevated. Patient was started on oxygen 4 liter/minute. She does not use oxygenat home or inhaler. She was admitted to the hospital and consultation was requested for further evaluation and management. Upon evaluating the patient, her attitude was depressed or flat. She does report slight postnasal drainage. She does report PND and orthopnea. She denies any history of hemoptysis, epistaxis, hematemesis, melena, hematochezia, diarrhea but constipation. She denies any history syncope or seizure activity. She denies history of fever or chills. She denies any contact with sick people or exposure to TB. She is up-to-date with COVID-19 vaccine. She lives in [place], [place]. She does have a cat at home who does not sleep in her bed. Patient does not ambulate. She was started on cefepime, daptomycin for treatment of possible osteomyelitis. 04/16 -Patient was seen and examined. Lab data were reviewed. Chest x-ray was reviewed by me. medication list was reviewed and adjusted as necessary. Patient is hemodynamically stable. Patient is afebrile.No event overnight. Questions by the patient about the care, plan, medication and possible side effects/ complication of treatment/ medication/ procedures were discussed with patient/ caring agents/ family in details to their satisfaction and understanding. Patient case discussed with the nurse caring for the patient. Patient is doing fair. Patient is feeling okay. She slept okay overnight. Her fluid balance was-400mL. No bowel movement was recorded. She is oxygenating adequately on 4 liter/minute of oxygen. 04/17 -Patient was seen and examined. Lab data were reviewed. Chest x-ray was reviewed by me. medication list was reviewed and adjusted as necessary. Patient is hemodynamically stable. Patient is afebrile.No event overnight. Questions by the patient about the care, plan, medication and possible side effects/ complication of treatment/ medication/ procedures were discussed with patient/ caring agents/ family in details to their satisfaction and understanding. Patient case discussed with the nurse caring for the patient. Patient is doing fair. Patient is feeling better. She is breathing easier. She slept okay overnight. Her oxygenation is adequate on 4 liter/[place] [address], albumin 1.3, fluid balance was-1 L. She did have bowel movement overnight. 04/18 -Patient was seen and examined. Lab data were reviewed. Chest x-ray was reviewed by me. medication list was reviewed and adjusted as necessary. Patient is hemodynamically stable. Patient is afebrile.No event overnight. Questions by the patient about the care, plan, medication and possible side effects/ complication of treatment/ medication/ procedures were discussed with patient/ caring agents/ family in details to their satisfaction and understanding. Patient case discussed with the nurse caring for the patient. Patient is doing fair. Patient is unchanged. She slept very good overnight. She is oxygenating adequately on 2-4 liter/minute of oxygen. Her fluid balance was - 3 L. She did have bowel movement overnight. Albumin [place] 1.3[place] [address]. 04/19 I saw the patient this morning and she was lying in bed and kept her head covered for most of the conversation. She reports her breathing is significantly improved. She has a minimal cough and deniesany sputum production or wheezing. She is afebrile and remains on 4 L of supplemental oxygen with saturations in the mid 90s. Labs are pending this morning but she has had continued improvement in renal function with significant diuresis 04/21 -Patient was seen and examined. Lab data were reviewed. Chest x-ray was reviewed by me. medication list was reviewed and adjusted as necessary. Patient is hemodynamically stable. Patient is afebrile.No event overnight. Questions by the patient about the care, plan, medication and possible side effects/ complication of treatment/ medication/ procedures were discussed with patient/ caring agents/ family in details to their satisfaction and understanding. Patient case discussed with the nurse caring for the patient. Patient is doing fair. Patient is feeling okay. She is oxygenating adequately on 4 liter/minute of oxygen. [place] [address], albumin is 1.3. Her fluid balance was-5400 mL. She did have bowel movement overnight. 04/22 -Patient was seen and examined. Lab data were reviewed. Chest x-ray was reviewed by me. medication list was reviewed and adjusted as necessary. Patient is hemodynamically stable. Patient is afebrile.No event overnight. Questions by the patient about the care, plan, medication and possible side effects/ complication of treatment/ medication/ procedures were discussed with patient/ caring agents/ family in details to their satisfaction and understanding. Patient case discussed with the nurse caring for the patient. Patient is doing fair. Patient is feeling okay. She did sit on side of bed yesterday. She is oxygenating adequately on 4 liter/minute of oxygen. She does not have oxygen at home. Her fluid balance was-2400 mL. [place] [address]. 04/23 -Patient was seen and examined. Lab data were reviewed. Chest x-ray was reviewed by me. medication list was reviewed and adjusted as necessary. Patient is hemodynamically stable. Patient is afebrile.No event overnight. Questions by the patient about the care, plan, medication and possible side effects/ complication of treatment/ medication/ procedures were discussed with patient/ caring agents/ family in details to their satisfaction and understanding. Patient case discussed with the nurse caring for the patient. Patient is doing fair. Patient is feeling okay. She did not sleep very well overnight. She was having a lot of nausea and vomiting overnight. Her fluid balance was-3 L. she did have bowel movement overnight. Her oxygenation is adequate on 4 liter/minute of oxygen. 04/24 -Patient was seen and examined. Lab data were reviewed. Chest x-ray was reviewed by me. medication list was reviewed and adjusted as necessary. Patient is hemodynamically stable. Patient is afebrile.No event overnight. Questions by the patient about the care, plan, medication and possible side effects/ complication of treatment/ medication/ procedures were discussed with patient/ caring agents/ family in details to their satisfaction and understanding. Patient case discussed with the nurse caring for the patient. Patient is doing fair. Patient is feeling okay. She slept okay overnight. She is oxygenating adequately on 4 liter[place] [address], albumin is 2. Her fluid balance was-3500 mL. She didhave bowel movement overnight. 04/25 -Patient was seen and examined. Lab data were reviewed. Chest x-ray was reviewed by me. medication list was reviewed and adjusted as necessary. Patient is hemodynamically stable. Patient is afebrile.No event overnight. Questions by the patient about the care, plan, medication and possible side effects/ complication of treatment/ medication/ procedures were discussed with patient/ caring agents/ family in details to their satisfaction and understanding. Patient case discussed with the nurse caring for the patient. Patient is doing fair. Patient is feeling okay. She slept okay overnight. She had no episode of vomiting and nausea. She is oxygenating adequately on 4 liter/minute of oxygen. Her fluid balance was-1200 mL. 2 bowel movements were recorded. Albumin is 2.1. Past Medical History: Past Medical History: Diagnosis Date CHF (congestive heart failure) ([facility]) (HCC) CKD (chronic kidney disease) Diabetes mellitus (HCC) Hx of AKA (above knee amputation) (CMS/[facility]) (HCC) Left Hypertension Surgical History: Past Surgical History: Procedure Laterality Date ABOVE KNEE LEG AMPUTATION Left Current Medications: Current Facility-Administered Medications Medication Dose Route Frequency Provider Last Rate Last Admin acetaminophen (TYLENOL) tablet 650 mg 650 mg oral Q4H PRN Amilcar Hancock MD bumetanide (BUMEX) tablet 2 mg 2 mg oral BID DIURETIC Golden Kidd MD 2 mg at 04/24/23 1518 buPROPion (WELLBUTRIN) tablet 50 mg 50 mg oral BID Hien Rabago MD 50 mg at 04/21/23 2226 sodium chloride 0.9% flush 0.5-20 mL 0.5-20 mL intra-catheter Q8H [facility] Amilcar Hancock MD 10 mL at04/25/23 0428 And sodium chloride 0.9% flush 0.5-20 mL 0.5-20 mL intra-catheter PRN Amilcar Hancock MD And Carrier Fluids for Secondary Infusion - 0.9% Sodium Chloride 30 mL intravenous PRN Amilcar Hancock MD 30 mL at 04/22/23 205 Carrier Fluids for Secondary Infusion - 0.9% Sodium Chloride 30 mL intravenous PRN Hien Rabago MD cefTRIAXone (ROCEPHIN) 2,000 mg/20 mL in sterile water (premix) 2,000 mg 2,000 mg intravenous Q24H Dante Fitzgerald MD 2,000 mg at 04/23/23 0936 DAPTOmycin (CUBICIN) 50 mg/mL sodium chloride 0.9% 700 mg 700 mg intravenous Q24H Amilcar Hancock MD 700 mg at 04/24/23 1519 dextrose (GLUTOSE) 40 % gel 15 g 15 g oral Q15 Min PRN Amilcar Hancock MD 15 g at 04/22/23 1155 Or dextrose (D10W) 10% bolus 250 mL 250 mL intravenous Q15 Min PRN Amilcar Hancock MD ergocalciferol (VITAMIN D) capsule 50,000 Units 50,000 Units oral Weekly Golden Kidd MD 50,000 Units at 04/17/23 1437 folic acid (FOLVITE) tablet 1 mg 1 mg oral Daily Hien Rabago MD 1 mg at 04/22/23 0916 glucagon injection 1 mg 1 mg intramuscular Q30 Min PRN Amilcar Hancock MD [Held by Provider] heparin 5,000 unit/mL injection 7,500 Units 7,500 Units subcutaneous Q8H [facility] Amilcar Hancock MD 7,500 Units at 04/22/23 1520 HYDROmorphone (DILAUDID) injection 0.5 mg 0.5 mg intravenous Q4H PRN Hien Rabago MD 0.5 mgat 04/18/23 1818 insulin lispro (HumaLOG, ADMELOG) 100 unit/mL injection 0-4 Units 0-4 Units subcutaneous Nightly Amilcar Hancock MD 1 Units at 04/24/23 2121 insulin lispro (HumaLOG, ADMELOG) 100 unit/mL injection 0-5 Units 0-5 Units subcutaneous TID with meals Amilcar Hancock MD 1 Units at 04/24/23 1713 ipratropium-albuteroL (DUO-NEB) 0.5-2.5 mg/3 mL nebulizer solution 3 mL 3 mL nebulization Q4H PRN (RT) Darell Paniagua MD 3 mL at 04/22/23 0305 Lactated Ringer's (LR) infusion 30 mL/hr intravenous Continuous Rowan Hendricks MD Lactated Ringer's (LR) infusion 125 mL/hr intravenous Continuous Rowan Hendricks MD 125 mL/hr at 04/24/23 1311 125 mL/hr at 04/24/23 1311 losartan (COZAAR) tablet 50 mg 50 mg oral Daily Golden Kidd MD metroNIDAZOLE (FLAGYL) tablet 500 mg 500 mg oral TID Dante Stubbs MD 500 mg at 04/24/23 1518 miconazole 2 % powder topical BID Willie Castro MD Given at 04/24/23 2121 ondansetron ODT (ZOFRAN-ODT) disintegrating tablet 4 mg 4 mg oral Q6H PRN Amilcar Hancock MD Or ondansetron (ZOFRAN) injection 4 mg 4 mg intravenous Q6H PRN Amilcar Hancock MD 4 mg at 04/23/23 1827 potassium chloride ER (KLOR-CON) extended release tablet 40 mEq 40 mEq oral Once Darell Paniagua MD sodium chloride (OCEAN) 0.65 % nasal spray 1 spray 1 spray each nostril Q2H PRN Darell Paniagua MD sodium chloride 0.9% flush 5-20 mL 5-20 mL intra-catheter PRN Hien Rabago MD sodium chloride 0.9% flush 5-20 mL 5-20 mL intra-catheter PRN Dante Stubbs MD sodium chloride 0.9% infusion 30 mL/hr intravenous Continuous Marilin Garcia MD 30 mL/hr at 04/24/23 0946 Restarted at 04/24/23 0957 spironolactone (ALDACTONE) tablet 50 mg 50 mg oral BID DIURETIC Golden Kidd MD 50 mg at 04/24/23 1518 thiamine (VITAMIN B-1) tablet 50 mg 50 mg oral Daily Hien Rabago MD 50 mg at 04/22/23 0916 Allergies: No Known Allergies Family History: History reviewed. No pertinent family history. Social History: Social History Tobacco Use Smoking status: Never Smokeless tobacco: Never Substance and Sexual Activity Drug use: Never Sexual activity: None Alcohol Use: Not on file Review of Systems: Review of Systems Constitutional: Positive for fatigue. Negative for appetite change, chills and fever. HENT: Negative for congestion, ear pain, mouth sores, tinnitus and voice change. Eyes: Negative for photophobia and pain. Respiratory: Positive for cough and shortness of breath. Negative for choking and stridor. Cardiovascular: Positive for leg swelling. Negative for chest pain and palpitations. Gastrointestinal: Negative for abdominal distention, abdominal pain and nausea. Endocrine: Negative for cold intolerance and polyphagia. Genitourinary: Negative for dysuria and hematuria. Musculoskeletal: Positive for gait problem. Negative for joint swelling. Skin: Negative for pallor and rash. Allergic/Immunologic: Negative for immunocompromised state. Neurological: Positive for weakness. Negative for seizures and facial asymmetry. Hematological: Negative for adenopathy. Does not bruise/bleed easily. Psychiatric/Behavioral: Negative for agitation and confusion. Physical Exam: Vitals: 04/24/23 1900 04/24/23 2300 04/25/23 0300 04/25/23 0430 BP: 165/91 166/91 (!) 173/90 162/89 BP Location: Left arm Left arm Left arm Left arm Patient Position: HOB 30 degrees HOB 30 degrees HOB 30 degrees Pulse: 96 99 98 Resp: Temp: 37.5 ??C (99.5 ??F) 37.4 ??C (99.4 ??F) 37.2 ??C (98.9 ??F) TempSrc: Oral Oral Oral SpO2: 94% 96% 93% Weight: Height: Physical Exam Constitutional: General: She is not in acute distress. Appearance: She is well-developed. She is morbidly obese. She is ill-appearing. She is not diaphoretic. HENT: Head: Normocephalic and atraumatic. Neck: Thyroid: No thyromegaly. Cardiovascular: Rate and Rhythm: Normal rate and regular rhythm. Heart sounds: No murmur heard. No gallop. Pulmonary: Effort: Pulmonary effort is normal. No accessory muscle usage or respiratory distress. Breath sounds: No stridor. Examination of the right-upper field reveals decreased breath sounds. Examination of the left-upper field reveals decreased breath sounds. Examination of the right-lower field reveals rales. Examination of the left-lower field reveals rales. Decreased breath sounds and rales present. Chest: Chest wall: No tenderness. Abdominal: General: Bowel sounds are normal. There is no distension. Palpations: Abdomen is soft. Tenderness: There is no abdominal tenderness. Musculoskeletal: General: No tenderness or deformity. Normal range of motion. Cervical back: Normal range of motion and neck supple. Right lower leg: Edema present. Left lower leg: Edema present. Comments: Left BKA Lymphadenopathy: Cervical: No cervical adenopathy. Skin: General: Skin is warm and dry. Capillary Refill: Capillary refill takes less than 2 seconds. Findings: Lesion and rash present. No erythema. Neurological: Mental Status: She is alert and oriented to person, place, and time. Cranial Nerves: No cranial nerve deficit. Motor: Weakness present. Coordination: Coordination normal. Psychiatric: Mood and Affect: Mood is depressed. Behavior: Behavior normal. Data Reviewed Recent Results (from the past 24 hour(s)) Comprehensive metabolic panel Collection Time: 04/24/23 6:20 AM Result Value Ref Range Sodium 143 135 - 145 mmol/L Potassium, pl 3.3 3.3 - 4.9 mmol/L Chloride 105 97 - 110 mmol/L CO2 31 22 - 32 mmol/L Anion gap 7 2 - 15 mmol/L BUN 14 6 - 25 mg/dL Creatinine 1.20 (H) 0.60 - 1.10 mg/dL Glucose 126 70 - 199 mg/dL Calcium 8.3 (L) 8.5 - 10.3 mg/dL Bilirubin, total 0.4 0.1 - 1.2 mg/dL Protein, pl 5.7 (L) 6.5 - 8.5 g/dL Albumin 2.1 (L) 3.5 - 5.0 g/dL Alk phos 233 (H) 40 - 130 Units/L ALT 14 7 - 45 Units/L AST 22 10 - 45 Units/L Magnesium Collection Time: 04/24/23 6:20 AM Result Value Ref Range Magnesium 1.5 1.4 - 2.5 mg/dL Phosphorus Collection Time: 04/24/23 6:20 AM Result Value Ref Range Phosphorus, pl 2.9 2.3 - 4.5 mg/dL eGFR Collection Time: 04/24/23 6:20 AM Result Value Ref Range eGFR 62 mL/min/1.73 m2 POCT glucose Collection Time: 04/24/23 7:39 AM Result Value Ref Range Glucose, POC 135 70 - 199 mg/dL Glucose comment 1 Use This Result CBC with auto differential Collection Time: 04/24/23 7:58 AM Result Value Ref Range WBC 16.6 (H) 3.8 - 9.9 K/cumm Hgb 7.9 (L) 11.9 - 15.5 g/dL Hct 26.7 (L) 35.6 - 45.5 % Plt 500 (H) 150 - 400 K/cumm MPV 8.9 (L) 9.1 - 12.3 fL RBC 3.04 (L) 3.90 - 5.20 M/cumm MCV 87.8 81.3 - 96.4 fL MCH 26.0 (L) 27.1 - 33.3 pg MCHC 29.6 (L) 32.3 - 35.7 g/dL RDW CV 17.2 (H) 11.1 - 14.9 % RDW SD 54.9 (H) 35.7 - 48.1 fL NRBC abs 0.03 (H) 0.00 - 0.01 K/cumm Differential, auto Collection Time: 04/24/23 7:58 AM Result Value Ref Range Neutrophil abs 13.5 (H) 1.7 - 6.5 K/cumm Imm gran abs 0.2 (H) 0.0 - 0.1 K/cumm Lymphocyte abs 1.4 0.8 - 3.3 K/cumm Monocyte abs 1.1 (H) 0.2 - 0.8 K/cumm Eosinophil abs 0.4 0.0 - 0.5 K/cumm Basophil abs 0.1 0.0 - 0.1 K/cumm Neutrophil pct 81.3 % Imm gran pct 0.9 % Lymphocyte pct 8.4 % Monocyte pct 6.9 % Eosinophil pct 2.2 % Basophil pct 0.3 % POCT glucose Collection Time: 04/24/23 11:30 AM Result Value Ref Range Glucose, POC 119 70 - 199 mg/dL Glucose comment 1 Use This Result POCT glucose Collection Time: 04/24/23 4:13 PM Result Value Ref Range Glucose, POC 163 70 - 199 mg/dL Glucose comment 1 Use This Result POCT glucose Collection Time: 04/24/23 8:03 PM Result Value Ref Range Glucose, POC 204 (H) 70 - 199 mg/dL CBC with auto differential Collection Time: 04/24/23 8:35 PM Result Value Ref Range WBC 17.2 (H) 3.8 - 9.9 K/cumm Hgb 8.3 (L) 11.9 - 15.5 g/dL Hct 27.7 (L) 35.6 - 45.5 % Plt 523 (H) 150 - 400 K/cumm MPV 9.1 9.1 - 12.3 fL RBC 3.14 (L) 3.90 - 5.20 M/cumm MCV 88.2 81.3 - 96.4 fL MCH 26.4 (L) 27.1 - 33.3 pg MCHC 30.0 (L) 32.3 - 35.7 g/dL RDW CV 17.2 (H) 11.1 - 14.9 % RDW SD 54.1 (H) 35.7 - 48.1 fL NRBC abs 0.02 (H) 0.00 - 0.01 K/cumm Differential, auto Collection Time: 04/24/23 8:35 PM Result Value Ref Range Neutrophil abs 14.5 (H) 1.7 - 6.5 K/cumm Imm gran abs 0.1 0.0 - 0.1 K/cumm Lymphocyte abs 1.3 0.8 - 3.3 K/cumm Monocyte abs 0.9 (H) 0.2 - 0.8 K/cumm Eosinophil abs 0.4 0.0 - 0.5 K/cumm Basophil abs 0.0 0.0 - 0.1 K/cumm Neutrophil pct 84.2 % Imm gran pct 0.8 % Lymphocyte pct 7.3 % Monocyte pct 5.0 % Eosinophil pct 2.5 % Basophil pct 0.2 % Images: CA Pulmonary Perfusion Imaging Result Date: 04/15/2023 Narrative: EXAM DESCRIPTION: CA PULMONARY PERFUSION IMAGING RADIOPHARMACEUTICAL: 4 mCi Tc-99m MAA via a right antecubital vein IV site REASON FOR STUDY: Chest pain. Shortness of breath and cough. TECHNIQUE: Limited multi-planar perfusion scintigrams were obtained. COMPARISON: Chest radiograph 04/15/2023 FINDINGS: Perfusion images obtained in the anterior, anterior oblique, and lateral projectionswere obtained. The posterior and posterior oblique projections were not obtained. There is mild enlargement of the cardiomediastinal silhouette. There are no large segmental perfusion defects on the provided images. IMPRESSION: 1. Limited perfusion lung scan with a low probability for pulmonary embolism. THIS IS AN ELECTRONICALLY VERIFIED FINAL REPORT 04/15/2023 4:31 PM - Electronically signed by Amor Rodriguez M.D. LB T: Report ID: [id number] Reading Location: [id number] XR Foot Right 3 or More Views Result Date: 04/15/2023 Narrative: EXAM DESCRIPTION: XR FOOT RIGHT 3 OR MORE VIEWS REASON FOR STUDY: Wound infection TECHNIQUE: 3 radiographic view(s) of the right foot . COMPARISON: 02/20/2023 FINDINGS: Plantar soft tissueulceration of the hindfoot with underlying soft tissue gas. There is diffuse soft tissue swelling of the foot, particularly involving the dorsal aspect of the mid to forefoot. No radiopaque foreign bodies. There is suspected mild osseous cortical erosion involving the plantar aspect of the calcaneus when compared to the prior exam. No acute fracture or dislocation. IMPRESSION: Prominent soft tissue ulceration of the plantar aspect of the hindfoot with underlying soft tissue gas. Suspected osseous cortical erosion involving the plantar aspect of the calcaneus, concerning for acute osteomyelitis. THIS IS AN ELECTRONICALLY VERIFIED FINAL REPORT 04/15/2023 2:51 PM - Electronically signed by Rio PHILLIPS T: Report ID: [id number] Reading Location: [id number] XR Chest 1 Vw Portable Result Date: 04/15/2023 Narrative: EXAM DESCRIPTION: XR CHEST 1 VIEW REASON FOR STUDY: Shortness of breath Pt with sob, weakness x 2-3 days Hx lg necrotic wnd on rt foot that she is being treated for Pt is lt leg amputee above the knee TECHNIQUE: 1 radiographic view(s) of the chest. COMPARISON: None FINDINGS: LUNGS: Diffuse bilateral interstitial opacities. No focal consolidation. No pneumothorax. No large pleural effusion. HEART/MEDIASTINUM: Cardiac silhouette is enlarged.. Mediastinal and hilar contours appear normal. LINES/TUBES: None. BONES: No acute osseous abnormality. IMPRESSION: Findings are suggestive of pulmonary edema. THIS IS AN ELECTRONICALLY VERIFIED FINAL REPORT 04/15/2023 2:43 PM - Electronically signed by Rio PHILLIPS T: Report ID: [id number] Reading Location: [id number] Assessment and Plan: Assessment Acute hypoxemic respiratory failure secondary to fluid overload/pulmonary edema and possible sepsis. No history of smoking. Bed bound. Right BKA. Renal insufficiency. Plan Oxygen keep ox saturation more than 92%. Bronchodilators around the clock and as needed with albuterol and Atrovent. Head of bed elevation and aspiration precaution. Diuresis, monitor O2 retires and fluid balance, monitor kidney function. Incentive spirometry and physical therapy. Out of bed to the chair if possible. Pulmonary toilet and pep valve. Check blood culture, sputum culture, ESR, CRP, BNP, procalcitonin and MRSA. Saline nasal spray twice daily. Patient would need outpatient split sleep study. Condition is guarded. Will monitor patient closely. Continue antibiotics, daptomycin and cefepime. Check 2D echocardiogram. 04/16 -continue daptomycin, cefepime, day 2., patient would need 2D echocardiogram to evaluate her cardiomegaly and fluid overload on chest x-ray. Continue monitoring electrolytes, kidney function, input and output. Continue bronchodilators, oxygen supplement keep ox saturation more than 92%, head of bedelevation, aspiration precaution, pep valve, pulmonary toilet, DVT and stress ulcer prophylaxis, continue wound care and continue monitor patient closely. Patient condition is guarded. 04/17 -daptomycin, cefepime(was switched to ceftriaxone and Flagyl), day 3., 2D echocardiogram was reviewed. Continue nutritional support, head of bed elevation, aspiration precaution, pulmonary toilet, DVT and stress ulcer prophylaxis, pep valve, bronchodilators, oxygen supplement keep ox saturation more than 92%, wean oxygen as tolerated, continue wound care, continue diuresis, monitor electrolytes and fluid balance, patient condition continued to be guarded. 04/18 -antibiotics, ceftriaxone, Flagyl and daptomycin, day number 4 continue weaning oxygen keep ox saturation more than 92%, head of bed elevation, aspiration precaution, bronchodilators, incentive spirometry, physical therapy, pep valve, DVT and stress ulcer prophylaxis, pulmonary toilet, continue wound care, diuresis, monitor electrolytes and fluid balance, continue monitor patient closely. She would need outpatient split sleep study. 04/19 - again respiratory failure seems to be likely related to volume overload and acute renal insufficiency. This continues to improve with diuresis. Awaiting labs from today but will continue to monitorrenal function and electrolytes. She continues on antibiotics for right lower extremity osteomyelitis. Low suspicion for eosinophilic pneumonia/pneumonitis from daptomycin. Wean oxygen as tolerated and recommend sleep study as an outpatient. Pulmonary will follow peripherally over the weekend. The patient will be seen by Dr. Paniagua on Friday. Please call with any further questions. 04/21 -patient continued to be on oxygen 4 liter/minute, she does not have oxygen at home. Her albumin isonly 1.3. Continue antibiotics, daptomycin, Rocephin and Flagyl day number 6, continue nutritionalsupport, high-protein diet, diuresis, monitor electrolytes and fluid balance, head of bed elevation, aspiration precaution, incentive spirometry, physical therapy, pulmonary toilet, out of bed to thechair if possible, pulmonary toilet, DVT and stress ulcer prophylaxis, continue weaning oxygen keepox saturation more than 92%, continue monitor patient closely. Condition is very guarded. 04/22 -continue oxygen supplement, wean as tolerated, head of bed elevation, aspiration precaution, incentive spirometry, physical therapy, pulmonary toilet, sitting on side of bed, out of bed to the chairpossible, daptomycin Rocephin, Flagyl, day 7., continue DVT and stress ulcer prophylaxis, continue diuresis, monitor electrolytes and fluid balance, continue monitor patient closely. Continue bronchodilators Patient condition is guarded. 04/23 -she is feeling very sick. She is having nausea and vomiting. She is on daptomycin, Flagyl and Rocephin, day 8., continue head of bed elevation, aspiration precaution, incentive spirometry, physical therapy, sitting on side of bed, pulmonary toilet, DVT and stress ulcer prophylaxis, pep valve, continue diuresis, monitor electrolytes and fluid balance, continue nutritional support, continue bronchodilators, continue monitor patient closely. Patient condition is guarded. 04/24 -antibiotics daptomycin, Flagyl and Rocephin day number 9, continue diuresis, monitor electrolytes and fluid balance, bronchodilators, head of bed elevation, aspiration precaution, pulmonary toilet, saline side of bed, DVT and stress ulcer prophylaxis, saline nasal spray, continue monitoring hemodynamics, mental status, nutritional status, kidney function, input and output, continue monitor patient closely. Patient condition is guarded. 04/25 -antibiotics, daptomycin, Flagyl and Rocephin, day 10., diuresis will be continued, will monitor electrolytes and fluid balance, continue head of bed elevation, aspiration precaution, bronchodilators, oxygen supplement, incentive spirometry, physical therapy, syndrome side of bed, possible out of bed to the chair, continue monitoring hemodynamics, mental status, nutritional status, kidney function, input and output, continue DVT and stress ulcer prophylaxis, continue monitor patient closely. Patient condition is guarded. Will wean oxygen as tolerated. Rendering Provider & Department: Darell Paniagua MD THIS NOTE WAS CREATED IN PART WITH THE ASSISTANCE OF [employer]. ASSISTANT PRODUCER VARIANCES MAY OCCUR. For patients or family members viewing this note through [employer]: This note was written as a communication tool between healthcare providers and may contain technical language, terminology and abbreviations that is difficult to interpret without advanced medical training. If you have questions or concerns regarding what is written in this note, please request to speak with the healthcare provider taking care of you or your family member. * Shakila Harvey PTA - 04/24/2023 2:07 PM CDT Physical Therapy 04/24/23 1407 PT Last Visit PT Missed Visit Reason Patient declined (14:07pm pt declined secondary to being tired from procedure) * Jeanna Amin COTA - 04/24/2023 1:09 PM CDT Occupational Therapy 04/24/23 1309 General Session Type Treatment OT Missed Visit Reason With other staff/receiving another service * Willie Castro MD - 04/24/2023 11:38 AM CDT General Medicine Daily Progress DOA: 04/15/2023 Subjective The patient was seen and examined at bedside, she is hemodynamically stable AO x3. The patient was,uncooperative she said she is feeling better. Interval history: The patient is a 32 year female with past medical history of type 2 diabetes, essential hypertension, CHF with preserved ejection fraction and left AKA was admitted in hospital for acute on chronic CHF exacerbation, she was also found to have an ulcer on the right foot. Id was consulted for antibiotic management they recommended ceftriaxone and daptomycin plus Flagyl currently on day 9. Vascular surgery evaluated the patient they recommended an amputation but patient refused. Podiatryis not actively seen patient this week, I discussed with the General surgery they usually do not dodebridement of the lower extremities,We contacted transfer center, we are discussing the case with David Hernandez for possible transfer given the fact we have no podiatry service active in our hospital. We [facility] the [facility] for [facility], he said they do not do a debridement by his service, he will recommend an amputation or debridement by general surgery. I contacted [facility] team discussed with the hospitalist team (Dr. Elder) they agree for transfer surgical team agree for consultation for possible debridement. Patient also presented with acute hypoxic respiratory failure secondary to pulmonary edema in the context of sepsis, pulmonary was consulted they recommended the patient to be put on bronchodilators and patient also receiving IV Lasix. Patient also presented with BOBBY on CKD this is why nephrology was consulted has been following the case, they determined the patient has significant proteinuria, they recommended to increase Lasix tot.I.d. During the night of April 22 was agitated overnight she removed the oxygen she became hypoxic, patient stated again she does not want to pursue an amputation, code status was switched to DNR after palliative Care evaluate needed the patient discussed advanced care planning with her. During the afternoon of April 22 nursing staff showed the patient having bright red blood per rectum, H&H has remained stable FOBT was negative we had a discussion with GI they recommended bleeding scan given the patient BOBBY, bleeding scan was done and showed no evidence of active bleeding. GI evaluated the patient and took the patient today for upper endoscopy and sigmoidoscopy, sigmoidoscopyreported nonbleeding internal hemorrhage which likely the cause of the rectal bleeding, upper endoscopy showed normal esophagus and gastritis Past Medical History: Diagnosis Date CHF (congestive heart failure) (CMS/HCC) (HCC) CKD (chronic kidney disease) Diabetes mellitus (HCC) Hx of AKA (above knee amputation) (CMS/HCC) (HCC) Left Hypertension Objective Vitals: 24hr Min/Max: Temp Min: 36.1 ??C (97 ??F) Max: 36.9 ??C (98.5 ??F) Pulse Min: 84 Max: 91 BP Min: 142/86 Max: 175/89 Resp Min: 10 Max: 24 SpO2 Min: 91 % Max: 96 % Most Recent : Vitals: 04/24/23 1044 BP: 155/95 Pulse: 85 Resp: 22 Temp: SpO2: 93% I/O last 2 completed shifts: In: 200 [P.O.:200] Out: 3750 [Urine:3750] I/O this shift: In: 100 [I.V.:100] Out: 750 [Urine:750] Physical Exam: Physical Exam Constitutional: Appearance: She is well-developed. She is obese. She is ill-appearing. She is not diaphoretic. HENT: Head: Normocephalic. Mouth/Throat: Mouth: Mucous membranes are moist. Eyes: Pupils: Pupils are equal, round, and reactive to light. Neck: Thyroid: No thyromegaly. Vascular: No JVD. Cardiovascular: Rate and Rhythm: Normal rate and regular rhythm. Pulmonary: Effort: Pulmonary effort is normal. No tachypnea. Breath sounds: Examination of the right-lower field reveals rales. Examination of the left-lower field reveals rales. Decreased breath sounds and rales present. No wheezing or rhonchi. Chest: Chest wall: No mass. Abdominal: General: Bowel sounds are normal. Palpations: Abdomen is soft. There is no hepatomegaly. Musculoskeletal: General: Normal range of motion. Cervical back: Normal range of motion. Right lower leg: Edema present. Comments: Left AKA Skin: General: Skin is warm. Capillary Refill: Capillary refill takes less than 2 seconds. Coloration: Skin is not pale. Findings: Ecchymosis and erythema present. No rash. Neurological: General: No focal deficit present. Mental Status: She is alert and oriented to person, place, and time. Psychiatric: Mood and Affect: Mood normal. Lab/Radiology/Diagnostic Review: Laboratory review: Chemistry BMP Lab Results Component Value Date GLUCOSE 119 04/24/2023 GLUCOSE 126 04/24/2023 CALCIUM 8.3 (L) 04/24/2023 SODIUM 143 04/24/2023 POTASSIUM 3.3 04/24/2023 CO2 31 04/24/2023 BUNSER 14 04/24/2023 CREATININE 1.20 (H) 04/24/2023 and CBC: Lab Results Component Value Date WBC 16.6 (H) 04/24/2023 RBC 3.04 (L) 04/24/2023 HGB 7.9 (L) 04/24/2023 HCT 26.7 (L) 04/24/2023 MCV 87.8 04/24/2023 MCH 26.0 (L) 04/24/2023 MCHC 29.6 (L) 04/24/2023 RDWCV 17.2 (H) 04/24/2023 RDWSD 54.9 (H) 04/24/2023 MPV 8.9 (L) 04/24/2023 NRBCABS 0.03 (H) 04/24/2023 Current Facility-Administered Medications Medication Dose Route Frequency Provider Last Rate Last Admin acetaminophen (TYLENOL) tablet 650 mg 650 mg oral Q4H PRN Amilcar Hancock MD albumin 25 % bottle 25 g 25 g intravenous TID Dallas Peña MD sodium chloride 0.9% flush 0.5-20 mL 0.5-20 mL intra-catheter Q8H [facility] Amilcar Hancock MD 10 mL at04/21/23 1304 And sodium chloride 0.9% flush 0.5-20 mL 0.5-20 mL intra-catheter PRN Amilcar Hancock MD And Carrier Fluids for Secondary Infusion - 0.9% Sodium Chloride 30 mL intravenous PRN Amilcar Hancock MD cefTRIAXone (ROCEPHIN) 2,000 mg/20 mL in sterile water (premix) 2,000 mg 2,000 mg intravenous Q24H Dante Fitzgerald MD 2,000 mg at 04/21/23 0909 DAPTOmycin (CUBICIN) 50 mg/mL sodium chloride 0.9% 700 mg 700 mg intravenous Q24H Amilcar Hancock MD 700 mg at 04/21/23 1303 dextrose (GLUTOSE) 40 % gel 15 g 15 g oral Q15 Min PRN Amilcar Hancock MD Or dextrose (D10W) 10% bolus 250 mL 250 mL intravenous Q15 Min PRN Amilcar Hancock MD ergocalciferol (VITAMIN D) capsule 50,000 Units 50,000 Units oral Weekly Golden Kidd MD 50,000 Units at 04/17/23 1437 folic acid (FOLVITE) tablet 1 mg 1 mg oral Daily Hien Rabago MD 1 mg at 04/21/23 0908 furosemide (LASIX) 10 mg/mL injection 80 mg 80 mg intravenous BID DIURETIC Amilcar Hancock MD 80 mg at 04/21/23 0908 glucagon injection 1 mg 1 mg intramuscular Q30 Min PRN Amilcar Hancock MD heparin 5,000 unit/mL injection 7,500 Units 7,500 Units subcutaneous Q8H [facility] Amilcar Hancock MD 7,500 Units at 04/21/23 1304 HYDROmorphone (DILAUDID) injection 0.5 mg 0.5 mg intravenous Q4H PRN Hien Rabago MD 0.5 mgat 04/18/23 1818 insulin glargine (LANTUS, SEMGLEE) 100 unit/mL injection 22 Units 0.15 Units/kg subcutaneous Nightly Amilcar Hancock MD 22 Units at 04/19/23 2151 insulin lispro (HumaLOG, ADMELOG) 100 unit/mL injection 0-4 Units 0-4 Units subcutaneous Nightly Amilcar Hancock MD insulin lispro (HumaLOG, ADMELOG) 100 unit/mL injection 0-5 Units 0-5 Units subcutaneous TID with meals Amilcar Hancock MD insulin lispro (HumaLOG, ADMELOG) 100 unit/mL injection 7 Units 0.05 Units/kg subcutaneous TID withmeals Amilcar Hancock MD 7 Units at 04/16/23 180 ipratropium-albuteroL (DUO-NEB) 0.5-2.5 mg/3 mL nebulizer solution 3 mL 3 mL nebulization Q4H PRN (RT) Darell Paniagua MD metroNIDAZOLE (FLAGYL) tablet 500 mg 500 mg oral TID Dante Stubbs MD 500 mg at 04/21/23 0908 ondansetron ODT (ZOFRAN-ODT) disintegrating tablet 4 mg 4 mg oral Q6H PRN Amilcar Hancock MD Or ondansetron (ZOFRAN) injection 4 mg 4 mg intravenous Q6H PRN Amilcar Hancock MD sodium chloride (OCEAN) 0.65 % nasal spray 1 spray 1 spray each nostril Q2H PRN Darell Paniagua MD sodium chloride 0.9% flush 5-10 mL 5-10 mL intra-catheter Q12H ERICK Hien Rabago MD 10 mL at04/21/23 0920 sodium chloride 0.9% flush 5-20 mL 5-20 mL intra-catheter PRN Hien Rabago MD spironolactone (ALDACTONE) tablet 25 mg 25 mg oral BID DIURETIC Dallas Peña MD 25 mg at 04/21/23 0908 thiamine (VITAMIN B-1) tablet 50 mg 50 mg oral Daily Hien Rabago MD 50 mg at 04/21/23 0908 Assessment/Plan Principal Problem: Rectal bleed Active Problems: Acute diastolic congestive heart failure (CMS/HCC) ([facility]) Type II diabetes mellitus with foot ulcer ([facility]) Hypertension Acute respiratory failure with hypoxia (CMS/HCC) ([facility]) Diarrhea Acute kidney failure ([facility]) Elevated troponin Osteomyelitis ([facility]) Wounds, multiple Plan # acute hypoxemic respiratory failure 2/2 CHF exacerbation with acute heart failure On 4 L supplemental oxygen -patient is morbidly obese, likely OHS component -echocardiogram to rule out heart failure exacerbation -on Lasix 80 mg IV T.i.d. # COPD -improved respiratory distress -continue bronchodilator # iron-deficiency anemia and folate deficiency - completed IV iron sucrose - start on oral ferrous sulfate # acute osteomyelitis of the right foot calcaneum # abdominal wall infection panniculitis - afebrile, improved leukocytosis - on ceftriaxone and Flagyl day 9, daptomycin day 9 - podiatry would not available for wound debridement - general surgery was consulted for right foot wound debridement yesterday - PICC line in place for discharge planning - We dicussed the case with Dr. Cook and [facility] who refused the patient for transfer, he said they do not do a debridement by his service, he will recommend an amputation or debridement by general surgery. -I contacted [facility] team discussed with the hospitalist team (Dr. Elder) they agree for transfer surgical team agree for consultation for possible debridement. -the patient is accepted for transfer at [facility] # diabetes mellitus - patient fasting blood sugar was 71 I am decreasing Lantus to 18 # CKD 3A secondary to possible nephrotic syndrome Stable - Fortune catheter in place -follow renal consult recommendation - Lasix was increased to t.I.d. # PVD - vascular surgery recommended amputation but patient refused. At this point waiting for recommendations from General surgery, Podiatry is not active at this moment. Questionable GI bleed Put on hold DVT prophylaxis. H&H has remained stable GI consult appreciated Bleeding scan was negative GI evaluated the patient and took the patient today for upper endoscopy and sigmoidoscopy, sigmoidoscopy reported nonbleeding internal hemorrhage which likely the cause of the rectal bleeding, upper endoscopy showed normal esophagus and gastritis DVT prophylaxis: On hold Heparin patient was given sequential device GI prophylaxis: Ppi Rehab consult: Ongoing CODE status: Full Code Discharge disposition: SNF It took me 37 minutes review the case, place pertinent orders, discussed current findings with the patient and examined her. * Dante Stubbs MD - 04/24/2023 10:17 AM CDT Progress Note Infectious Diseases Chief complaint: Right calcaneal bone osteomyelitis. Obesity. Type 2 diabetes. Subjective For debridement today. No fever or pain Objective Vitals: 04/24/23 0927 BP: (!) 175/89 Pulse: 85 Resp: 10 Temp: 36.1 ??C (97 ??F) SpO2: 94% Constitutional: Alert, oriented x3. In no distress. Eyes: Sclerae anicteric, no conjunctival erythema Lungs: Clear breath sounds, no crackles, no wheezes Heart: Regular rate and rhythm, no murmurs Abdomen: Bowel sounds present, soft, nontender Skin: Warm and dry, No rashes Extremities: Stasis dermatitis. Right plantar ulcer no change Neuro: No motor deficit Psych: No anxiety Current Medications: Current Facility-Administered Medications Medication Dose Route Frequency Provider Last Rate Last Admin [Jan] acetaminophen (TYLENOL) tablet 650 mg 650 mg oral Q4H PRN Amilcar Hancock MD [JAN Hold] bumetanide (BUMEX) tablet 2 mg 2 mg oral BID DIURETIC Golden Kidd MD [MAR Hold] buPROPion (WELLBUTRIN) tablet 50 mg 50 mg oral BID Hien Rabago MD 50 mg at 04/21/23 2226 [MAR Hold] sodium chloride 0.9% flush 0.5-20 mL 0.5-20 mL intra-catheter Q8H [facility] Amilcar Hancock MD 10 mL at 04/24/23 0556 And [MAR Hold] sodium chloride 0.9% flush 0.5-20 mL 0.5-20 mL intra-catheter PRN Amilcar Hancock MD And [MAR Hold] Carrier Fluids for Secondary Infusion - 0.9% Sodium Chloride 30 mL intravenous PRN Amilcar Hancock MD 30 mL at 04/22/23 2054 [MAR Hold] Carrier Fluids for Secondary Infusion - 0.9% Sodium Chloride 30 mL intravenous PRN Hien Rabago MD [MAR Hold] cefTRIAXone (ROCEPHIN) 2,000 mg/20 mL in sterile water (premix) 2,000 mg 2,000 mg intravenous Q24H [facility] Dante Stubbs MD 2,000 mg at 04/23/23 0936 [MAR Hold] DAPTOmycin (CUBICIN) 50 mg/mL sodium chloride 0.9% 700 mg 700 mg intravenous Q24H Amilcar Hancock MD 700 mg at 04/23/23 1628 [MAR Hold] dextrose (GLUTOSE) 40 % gel 15 g 15 g oral Q15 Min PRN Amilcar Hancock MD 15 g at 04/22/23 1155 Or [MAR Hold] dextrose (D10W) 10% bolus 250 mL 250 mL intravenous Q15 Min PRN Amilcar Hancock MD [MAR Hold] ergocalciferol (VITAMIN D) capsule 50,000 Units 50,000 Units oral Weekly Golden Kidd MD 50,000 Units at 04/17/23 1437 [MAR Hold] folic acid (FOLVITE) tablet 1 mg 1 mg oral Daily Hien Rabago MD 1 mg at 04/22/23 0916 [MAR Hold] glucagon injection 1 mg 1 mg intramuscular Q30 Min PRAmilcar Vaughan MD [Held by Provider] heparin 5,000 unit/mL injection 7,500 Units 7,500 Units subcutaneous Q8H [facility] Amilcar Hancock MD 7,500 Units at 04/22/23 1520 [JAN Hold] HYDROmorphone (DILAUDID) injection 0.5 mg 0.5 mg intravenous Q4H PRN Hien Rabago MD 0.5 mg at 04/18/23 1818 [JAN Hold] insulin lispro (HumaLOG, ADMELOG) 100 unit/mL injection 0-4 Units 0-4 Units subcutaneousNightly Amilcar Hancock MD [JAN Hold] insulin lispro (HumaLOG, ADMELOG) 100 unit/mL injection 0-5 Units 0-5 Units subcutaneousTID with meals Amilcar Hancock MD [JAN Hold] ipratropium-albuteroL (DUO-NEB) 0.5-2.5 mg/3 mL nebulizer solution 3 mL 3 mL nebulization Q4H PRN (RT) Darell Paniagua MD 3 mL at 04/22/23 0305 Lactated Ringer's (LR) infusion 30 mL/hr intravenous Continuous Rowan Hendricks MD [JAN Hold] losartan (COZAAR) tablet 50 mg 50 mg oral Daily Golden Kidd MD [JAN Hold] metroNIDAZOLE (FLAGYL) tablet 500 mg 500 mg oral TID Dante Stubbs MD 500 mg at 04/23/23 180 [JAN Hold] miconazole 2 % powder topical BID Willie Castro MD Given at 04/23/23 215 [JAN Hold] ondansetron ODT (ZOFRAN-ODT) disintegrating tablet 4 mg 4 mg oral Q6H PRN Amilcar Hancock MD Or [JAN Hold] ondansetron (ZOFRAN) injection 4 mg 4 mg intravenous Q6H PRN Amilcar Hancock MD 4 mg at 04/23/23 1827 [JAN Hold] potassium chloride ER (KLOR-CON) extended release tablet 40 mEq 40 mEq oral Once Darell Paniagua MD [JAN Hold] sodium chloride (OCEAN) 0.65 % nasal spray 1 spray 1 spray each nostril Q2H PRN Darell Paniagua MD sodium chloride 0.9% flush 0.5-20 mL 0.5-20 mL intra-catheter Q8H [facility] Marilin Cho MD sodium chloride 0.9% flush 0.5-20 mL 0.5-20 mL intra-catheter PRN Marilin Cho MD [JAN Hold] sodium chloride 0.9% flush 5-20 mL 5-20 mL intra-catheter PRN Hien Rabago MD [JAN Hold] sodium chloride 0.9% flush 5-20 mL 5-20 mL intra-catheter PRN Dante Stubbs MD sodium chloride 0.9% infusion 30 mL/hr intravenous Continuous Marilin Garcia MD 30 mL/hr at 04/24/23 0946 Restarted at 04/24/23 0957 [JAN Hold] spironolactone (ALDACTONE) tablet 50 mg 50 mg oral BID DIURETIC Golden Kidd MD 50 mg at 04/23/23 1556 [JAN Hold] thiamine (VITAMIN B-1) tablet 50 mg 50 mg oral Daily Hien Rabago MD 50 mg at 04/22/23 0916 Facility-Administered Medications Ordered in Other Encounters Medication Dose Route Frequency Provider Last Rate Last Admin lidocaine (cardiac) (XYLOCAINE) preservative free injection intravenous PRN Trisha Jackson DIRECTOR OF CARDIOPULMONARY SERVICES 80 mg at 04/24/23 1006 propofoL (DIPRIVAN) 10 mg/mL IV intravenous PRN Trisha Jackson DIRECTOR OF CARDIOPULMONARY SERVICES 10 mg at 04/24/23 1014 No Known Allergies Social History Tobacco Use Smoking status: Never Smokeless tobacco: Never Substance and Sexual Activity Drug use: Never Sexual activity: None Alcohol Use: Not on file History reviewed. No pertinent family history. Lab Results Component Value Date HGBA1C 6.5 (H) 04/16/2023 TSH 4.01 04/16/2023 TIBC 186 (L) 04/16/2023 INR 1.3 (H) 04/15/2023 DDIMER 4,470 (H) 04/19/2023 CHOLHDL 3 04/17/2023 HCT 26.7 (L) 04/24/2023 MCH 26.0 (L) 04/24/2023 MCV 87.8 04/24/2023 MPV 8.9 (L) 04/24/2023 HDL 38 (L) 04/17/2023 RBC 3.04 (L) 04/24/2023 RDW 11.7 12/13/2017 WBC 16.6 (H) 04/24/2023 Assessment/Plan 1. Right diabetic foot infection with osteomyelitis of the calcaneal bone and chronic necrotic ulcer. Foot debridement today. Continue Rocephin, daptomycin and Flagyl day 9. Once necrotic tissue has been debrided may consider deescalating to Rocephin and daptomycin anticipated for a total of 6 weeks of therapy. 2. Leukocytosis with white count plateaued at 16,000. 3. Type 2 diabetes good glycemic control. 4. Obesity with BMI of fifty five. 5. Shortness of breath with history of congestive heart failure. Respiratory status is stable Dante Stubbs MD [facility] Infectious Disease [place] Office [phone] * Esthela Carmen PTA - 04/24/2023 10:16 AM CDT Physical Therapy 04/24/23 1016 PT Last Visit Session Type Treatment PT Missed Visit Reason Procedure/testing/appointment * Jeanna Amin COTA - 04/24/2023 10:15 AM CDT Occupational Therapy 04/24/23 1015 General Session Type Treatment OT Missed Visit Reason Procedure/testing/appointment * Golden Kidd MD - 04/24/2023 9:08 AM CDT Renal Progress Note Admit Date: 04/15/2023 Days: 9 Reason for Follow up: Acute on chronic kidney failure Clinical Course/New Symptoms Lying in bed in no distress Data Vitals: 04/24/23 0700 BP: 168/94 Pulse: 86 Resp: 20 Temp: 36.3 ??C (97.4 ??F) SpO2: 96% f breath Exam Constitutional: alert and oriented. Appears well-developed and well-nourished, in no distress. HighBMI Head: Normocephalic. Eyes: No icterus, extraocular movements normal Neck: Neck supple. Cardiovascular: Normal rate and regular rhythm. No murmur heard. Pulmonary/Chest: Diminished breath sounds bilaterally, on oxygen via nasal cannula. Abdominal: Soft. Musculoskeletal: Right lower extremity edema. Heel ulcer is visible. Neurological: alert and moves all 4 limbs. Skin: No rashes Intake/Output Summary (Last 24 hours) at 04/24/2023 0910 Last data filed at 04/24/2023 0850 Gross per 24 hour Intake 200 ml Output 4500 ml Net -4300 ml MEDICATIONS FOR CURRENT ENCOUNTER: SCHEDULED MEDICATIONS: Scheduled Medications Medication Dose Route Frequency bumetanide (BUMEX) tablet 2 mg 2 mg oral BID DIURETIC buPROPion (WELLBUTRIN) tablet 50 mg 50 mg oral BID cefTRIAXone (ROCEPHIN) 2,000 mg/20 mL in sterile water (premix) 2,000 mg 2,000 mg intravenous Q24H ERICK DAPTOmycin (CUBICIN) 50 mg/mL sodium chloride 0.9% 700 mg 700 mg intravenous Q24H ergocalciferol (VITAMIN D) capsule 50,000 Units 50,000 Units oral Weekly folic acid (FOLVITE) tablet 1 mg 1 mg oral Daily [Held by Provider] heparin 5,000 unit/mL injection 7,500 Units 7,500 Units subcutaneous Q8H ERICK insulin lispro (HumaLOG, ADMELOG) 100 unit/mL injection 0-4 Units 0-4 Units subcutaneous Nightly insulin lispro (HumaLOG, ADMELOG) 100 unit/mL injection 0-5 Units 0-5 Units subcutaneous TID with meals losartan (COZAAR) tablet 50 mg 50 mg oral Daily metroNIDAZOLE (FLAGYL) tablet 500 mg 500 mg oral TID miconazole 2 % powder topical BID potassium chloride ER (KLOR-CON) extended release tablet 40 mEq 40 mEq oral Once sodium chloride 0.9% flush 0.5-20 mL 0.5-20 mL intra-catheter Q8H ERICK spironolactone (ALDACTONE) tablet 50 mg 50 mg oral BID DIURETIC thiamine (VITAMIN B-1) tablet 50 mg 50 mg oral Daily CONTINUOUS MEDICATIONS: Current Facility-Administered Medications Medication Dose Route Frequency Last Admin PRN MEDICATIONS: PRN Medications Medication Dose Route Frequency Last Admin acetaminophen (TYLENOL) tablet 650 mg 650 mg oral Q4H PRN sodium chloride 0.9% flush 0.5-20 mL 0.5-20 mL intra-catheter PRN And Carrier Fluids for Secondary Infusion - 0.9% Sodium Chloride 30 mL intravenous PRN 30 mL at 04/22/23 2054 Carrier Fluids for Secondary Infusion - 0.9% Sodium Chloride 30 mL intravenous PRN dextrose (GLUTOSE) 40 % gel 15 g 15 g oral Q15 Min PRN 15 g at 04/22/23 1155 Or dextrose (D10W) 10% bolus 250 mL 250 mL intravenous Q15 Min PRN glucagon injection 1 mg 1 mg intramuscular Q30 Min PRN HYDROmorphone (DILAUDID) injection 0.5 mg 0.5 mg intravenous Q4H PRN 0.5 mg at 04/18/23 1818 ipratropium-albuteroL (DUO-NEB) 0.5-2.5 mg/3 mL nebulizer solution 3 mL 3 mL nebulization Q4H PRN (RT) 3 mL at 04/22/23 0305 ondansetron ODT (ZOFRAN-ODT) disintegrating tablet 4 mg 4 mg oral Q6H PRN Or ondansetron (ZOFRAN) injection 4 mg 4 mg intravenous Q6H PRN 4 mg at 04/23/23 1827 sodium chloride (OCEAN) 0.65 % nasal spray 1 spray 1 spray each nostril Q2H PRN sodium chloride 0.9% flush 5-20 mL 5-20 mL intra-catheter PRN sodium chloride 0.9% flush 5-20 mL 5-20 mL intra-catheter PRN My review of labs, imaging, notes and other tests is significant for Recent Labs Lab Units 04/24/23 0758 04/23/23 2144 04/23/23 1051 WBC K/cumm 16.6* 17.6* 16.9* HEMOGLOBIN g/dL 7.9* 8.1* 7.9* HEMATOCRIT % 26.7* 26.2* 25.9* PLATELETS K/cumm 500* 490* 488* . Recent Labs Lab Units 04/24/23 0739 04/24/23 0620 04/23/23 1909 04/23/23 1207 04/23/23 0923 04/22/23 0735 04/22/23 0625 SODIUM mmol/L -- 143 -- -- 143 -- 144 POTASSIUM PLASMA mmol/L -- 3.3 -- -- 3.3 -- 3.5 CHLORIDE mmol/L -- 105 -- -- 106 -- 107 CO2 mmol/L -- 31 -- -- 29 -- 28 CREATININE mg/dL -- 1.20* -- -- 1.30* -- 1.40* GLUCOSE mg/dL -- 126 -- -- 106 -- 71 POC GLUCOSE MONITOR mg/dL 135 -- 158 < > -- < > -- CALCIUM mg/dL -- 8.3* -- -- 8.3* -- 8.3* ALBUMIN g/dL -- 2.1* -- -- 2.0* -- 1.9* PHOSPHORUS PLASMA mg/dL -- 2.9 -- -- 3.0 -- 3.2 < > = values in this interval not displayed. .No lab exists for component: COLORUA, CHARACTERUA, SPECGRAVUA, PHUA, PROTEINUA, BLOODUA, LEUKOCYTEUA, NITRITEUA, GLUCOSEUA, KETONEUA, BILIRUBINUA, UROBILINUA, WBCUA, RBCUA, EPITHUA, MUCUSUA, CASTUA,CRYSTALUA, BACTERIAUA, YEASTUA, TRICHUA NM GI Bleed Study EXAM DESCRIPTION: NM GI BLEED STUDY RADIOPHARMACEUTICAL: 22 mCi Tc-99m in vitro labeled autologous red blood cells via a right arm PICC line IV site REASON FOR STUDY: GI bleed. Shortness of breath and cough for 2 weeks. Nausea and vomiting. Report of bright-red, jelly like loose stool last night. Hemoglobin 7.9. TECHNIQUE: Sequential anterior scintigrams of the abdomen were obtained after radiopharmaceutical administration. COMPARISON: None available FINDINGS: No abnormal foci of labeled red blood cell extravasation are seen. IMPRESSION: No evidence for active gastro-intestinal bleeding. Consider further evaluation with abdominopelvic CT as clinically appropriate. THIS IS AN ELECTRONICALLY VERIFIED FINAL REPORT 04/23/2023 9:42 AM - Electronically signed by Primo Mccarthy M.D. T: Report ID: [id number] Reading Location: [place] [id number] Assessment and Plan Principal Problem: Rectal bleed Active Problems: Acute diastolic congestive heart failure (CMS/HCC) (HCC) Type II diabetes mellitus with foot ulcer (HCC) Hypertension Acute respiratory failure with hypoxia (CMS/HCC) (HCC) Diarrhea Acute kidney failure (HCC) Elevated troponin Osteomyelitis (HCC) Wounds, multiple Resolved Problems: No resolved hospital problems. BOBBY on CKD in the setting of significant volume overload/pulmonary edema, unclear whether has obstructive uropathy as well, will check a postvoid residual. Does appear quite volume overloaded and will initiate IV furosemide. Obtaining a urinalysis with microscopy as well as a spot urine protein to c reatinine ratio as albumin is 1.8, likely has significant proteinuria. May need to order autoimmuneserology if active UA sediment. Echocardiogram is pending, previous echo with adequate EF and mild diastolic dysfunction. Obtaining a renal ultrasound as well. No acute need for dialysis and hopefully to respond to diuretics. Does have significant leukocytosis may have underlying infection, blood cultures pending, initiated on empiric antibiotics as well. 04/16/2023 Denies any urinary symptoms. Continue furosemide 80 mg IV b.i.d.. Has sub nephrotic proteinuria was1.8 g per g as per a spot sample. Continues to have significantly high leukocytosis. On antibiotics. Urine output noted, probably incomplete. Anemia. Will check iron profile, B12 and folate. Monitor urine output accurately. 2D echo is pending. 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 Noted vascular surgery recommendations regarding a rightabove-knee amputation which the patient declines. 04/17 Serum creatinine down to 2.1 today. Continue diuretics. Serum albumin 1.3. Multifactorial hypoalbuminemia. Non nephrotic range albuminuria previously unlikely primarily secondary to chronic inflammation. Reported diabetic retinopathy with potential need for intervention. Would hold off on prophylactic 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 for now in the setting of hypoalbuminemia. Plans are for PICC line with prolonged antibiotics for attempted limb salvage. Prognosis is extremely guarded. Started on folate and ironreplacement and will add vitamin-D replacement as well given deficiency. 04/18 Creatinine is improving. Down to 1.80. K 3.7, UOP 5000 ml yesterday. Improved creatinine with diuresis. BP 147/77 but variable and lower at times. 2 D Echo with normal EF but with diastolic dysfunction. Likely diabetic kidney disease in the setting of longstanding diabetes as well as diabetic retinopathy. Continue diuresis with furosemide at current dose of 80 mg IV b.i.d.. He is diuresing well. On antibiotics as per primary team/ID/vascular for the diabetic foot infection. She does not have a good appetite and this may be due to her ongoing infection. Likely not related to diminished renal function. Avoid hypotension and nephrotoxins. 04/19/23 Urine output 4-5 0 mL yesterday. Blood pressure 143/78 mmHg. Potassium 3.6, creatinine 1.70 (improved from 1.80 yesterday). Albumin is 1.3. On furosemide 80 mg IV q.12. Adding spironolactone 25 mg p.o. b.i.d.. Will try convert to oral furosemide in the near future. Significant hypoalbuminemia, likely effect of long-term malnutrition, chronic inflammation/infection, proteinuria. Improving nutrition will help but may not be possible without complete treatment of the infection. Monitor electrolytes and adjust spironolactone accordingly. 04/20/2023 Impressive diuresis with a combination of intravenous furosemide and oral spironolactone. Made 6.4 L of urine yesterday. Creatinine continues to decline and is down to 1.50 today. Blood pressure is reasonable at 139/76 mmHg. No hypotension at this time. Will continue current regimen with intravenous furosemide and oral spironolactone and hopefully convert to oral furosemide in the next few days. 04/21/2023 Urine output of 6850 mL yesterday. Blood pressures adequately controlled. Labs from today are stillpending. Continues to need 4 L of oxygen via nasal cannula. Serum albumin is exceedingly low at 1.3. Likely multifactorial including malnutrition, chronic infection, albuminuria contributing to the hy poalbuminemia. CXR continues to show moderate to severe bilateral airspace opacities have increasedwhen compared to 04/19/2023. Will give her a few doses of albumin in the setting of significant hypoalbuminemia. Will need improvement in nutrition, treatment of infection, for the albumin levels to improve. Continue current dose of intravenous furosemide with oral spironolactone since she is achieving significant diuresis with his combination. Chest x-ray continued to show moderate to severe bilateral airspace opacities and hence will continue diuresis. Pulmonary is on board. 04/22 Serum creatinine stable at 1.4, receiving temporary albumin infusions given severe hypoalbuminemia.Continue diuretics. Potassium 3.5 and mildly hypertensive will increase spironolactone to 50 mg b.i.d.. Chest x-ray slightly improved. Will increase furosemide to t.i.d. for now 04/23 Chemistry panel pending this morning, good urine output with adjustment in diuretics yesterday and will continue for now as remaining hemodynamically stable. Await nuclear study and continues on antibiotics. 04/24 No evidence of active bleeding on study yesterday. Serum creatinine down to 1.2. Hypokalemic and replacement ordered. Does continue on spironolactone 50 mg b.i.d. along with IV furosemide. I will convert to an oral loop diuretic to see if she responds adequately. Given current blood pressure readings and hypokalemia will add a low-dose of an ARB to her regimen as well Thank you. Golden Kidd MD [facility] Nephrology and Hypertension Office: [phone] * Darell Paniagua MD - 04/24/2023 5:59 AM CDT Progress Note Patient: Leeroy Canales ( - 1990) is a 32 y.o. female. Visit Date: 04/15/2023 Chief Complaint Patient presents with Shortness of Breath History of Present Illness: The patient is pleasant 32-year-old female who is bed-bound. 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 She is been taking care of by her mom and her sister. She does have history of diabetes. She does not smoke. She presented the emergency room complaining of progressive shortness of breath and cough for the past week or 2. Patient also was having trouble with a wound to her right foot and she is been having nausea. Her initial lab work showed creatinine 2 point 7, alk-phos 381 and albumin 1.8, ABGs showed pH 7.40, pCO2 36 and PO2 49 on room air, [place]BC [place] 77[address]. Urinalysis showed UTI. Chest x-ray showed Findings are suggestive of pulmonary edema. Her V/Q scan was negative, her D-dimer was elevated. Patient was started on oxygen 4 liter/minute. She does not use oxygenat home or inhaler. She was admitted to the hospital and consultation was requested for further evaluation and management. Upon evaluating the patient, her attitude was depressed or flat. She does report slight postnasal drainage. She does report PND and orthopnea. She denies any history of hemoptysis, epistaxis, hematemesis, melena, hematochezia, diarrhea but constipation. She denies any history syncope or seizure activity. She denies history of fever or chills. She denies any contact with sick people or exposure toTB. She is up-to-date with COVID-19 vaccine. She lives in [place], [place]. She does havea cat at home who does not sleep in her bed. Patient does not ambulate. She was started on cefepime, daptomycin for treatment of possible osteomyelitis. 04/16 -Patient was seen and examined. Lab data were reviewed. Chest x-ray was reviewed by me. medication list was reviewed and adjusted as necessary. Patient is hemodynamically stable. Patient is afebrile.No event overnight. Questions by the patient about the care, plan, medication and possible side effects/ complication of treatment/ medication/ procedures were discussed with patient/ caring agents/ family in details to their satisfaction and understanding. Patient case discussed with the nurse caring for the patient. Patient is doing fair. Patient is feeling okay. She slept okay overnight. Her fluid balance was-400mL. No bowel movement was recorded. She is oxygenating adequately on 4 liter/minute of oxygen. 04/17 -Patient was seen and examined. Lab data were reviewed. Chest x-ray was reviewed by me. medication list was reviewed and adjusted as necessary. Patient is hemodynamically stable. Patient is afebrile.No event overnight. Questions by the patient about the care, plan, medication and possible side effects/ complication of treatment/ medication/ procedures were discussed with patient/ caring agents/ family in details to their satisfaction and understanding. Patient case discussed with the nurse caring for the patient. Patient is doing fair. Patient is feeling better. She is breathing easier. She slept okay overnight. Her oxygenation is adequate on 4 liter/[place] [address], albumin 1.3, fluid balance was-1 L. She did have bowel movement overnight. 04/18 -Patient was seen and examined. Lab data were reviewed. Chest x-ray was reviewed by me. medication list was reviewed and adjusted as necessary. Patient is hemodynamically stable. Patient is afebrile.No event overnight. Questions by the patient about the care, plan, medication and possible side effects/ complication of treatment/ medication/ procedures were discussed with patient/ caring agents/ family in details to their satisfaction and understanding. Patient case discussed with the nurse caring for the patient. Patient is doing fair. Patient is unchanged. She slept very good overnight. She is oxygenating adequately on 2-4 liter/minute of oxygen. Her fluid balance was - 3 L. She did have bowel movement overnight. Albumin [place] 1.3, [place] [address]. 04/19 I saw the patient this morning and she was lying in bed and kept her head covered for most of the conversation. She reports her breathing is significantly improved. She has a minimal cough and deniesany sputum production or wheezing. She is afebrile and remains on 4 L of supplemental oxygen with saturations in the mid 90s. Labs are pending this morning but she has had continued improvement in renal function with significant diuresis 04/21 -Patient was seen and examined. Lab data were reviewed. Chest x-ray was reviewed by me. medication list was reviewed and adjusted as necessary. Patient is hemodynamically stable. Patient is afebrile.No event overnight. Questions by the patient about the care, plan, medication and possible side effects/ complication of treatment/ medication/ procedures were discussed with patient/ caring agents/ family in details to their satisfaction and understanding. Patient case discussed with the nurse caring for the patient. Patient is doing fair. Patient is feeling okay. She is oxygenating adequately on 4 liter/minute of oxygen. [place] [address], albumin is 1.3. Her fluid balance was-5400 mL. She did have bowel movement overnight. 04/22 -Patient was seen and examined. Lab data were reviewed. Chest x-ray was reviewed by me. medication list was reviewed and adjusted as necessary. Patient is hemodynamically stable. Patient is afebrile.No event overnight. Questions by the patient about the care, plan, medication and possible side effects/ complication of treatment/ medication/ procedures were discussed with patient/ caring agents/ family in details to their satisfaction and understanding. Patient case discussed with the nurse caring for the patient. Patient is doing fair. Patient is feeling okay. She did sit on side of bed yesterday. She is oxygenating adequately on 4 liter/minute of oxygen. She does not have oxygen at home. Her fluid balance was-2400 mL. [place] [address]. 04/23 -Patient was seen and examined. Lab data were reviewed. Chest x-ray was reviewed by me. medication list was reviewed and adjusted as necessary. Patient is hemodynamically stable. Patient is afebrile.No event overnight. Questions by the patient about the care, plan, medication and possible side effects/ complication of treatment/ medication/ procedures were discussed with patient/ caring agents/ family in details to their satisfaction and understanding. Patient case discussed with the nurse caring for the patient. Patient is doing fair. Patient is feeling okay. She did not sleep very well overnight. She was having a lot of nausea and vomiting overnight. Her fluid balance was-3 L. she did have bowel movement overnight. Her oxygenation is adequate on 4 liter/minute of oxygen. 04/24 -Patient was seen and examined. Lab data were reviewed. Chest x-ray was reviewed by me. medication list was reviewed and adjusted as necessary. Patient is hemodynamically stable. Patient is afebrile.No event overnight. Questions by the patient about the care, plan, medication and possible side effects/ complication of treatment/ medication/ procedures were discussed with patient/ caring agents/ family in details to their satisfaction and understanding. Patient case discussed with the nurse caring for the patient. Patient is doing fair. Patient is feeling okay. She slept okay overnight. She is oxygenating adequately on 4 liter[place] [address], albumin is 2. Her fluid balance was-3500 mL. She didhave bowel movement overnight. Past Medical History: Past Medical History: Diagnosis Date CHF (congestive heart failure) (CMS/HCC) (HCC) CKD (chronic kidney disease) Diabetes mellitus (HCC) Hx of AKA (above knee amputation) (CMS/HCC) (HCC) Left Hypertension Surgical History: Past Surgical History: Procedure Laterality Date ABOVE KNEE LEG AMPUTATION Left Current Medications: Current Facility-Administered Medications Medication Dose Route Frequency Provider Last Rate Last Admin acetaminophen (TYLENOL) tablet 650 mg 650 mg oral Q4H PRN Amilcar Hancock MD buPROPion (WELLBUTRIN) tablet 50 mg 50 mg oral BID Hien Rabago MD 50 mg at 04/21/23 2226 sodium chloride 0.9% flush 0.5-20 mL 0.5-20 mL intra-catheter Q8H [facility] Amilcar Hancock MD 10 mL at04/24/23 0556 And sodium chloride 0.9% flush 0.5-20 mL 0.5-20 mL intra-catheter PRN Amilcar Hancock MD And Carrier Fluids for Secondary Infusion - 0.9% Sodium Chloride 30 mL intravenous PRN Amilcar Hancock MD 30 mL at 04/22/23 2054 Carrier Fluids for Secondary Infusion - 0.9% Sodium Chloride 30 mL intravenous PRN Hien Rabago MD cefTRIAXone (ROCEPHIN) 2,000 mg/20 mL in sterile water (premix) 2,000 mg 2,000 mg intravenous Q24H Dante Fitzgerald MD 2,000 mg at 04/23/23 0936 DAPTOmycin (CUBICIN) 50 mg/mL sodium chloride 0.9% 700 mg 700 mg intravenous Q24H Amilcar Hancock MD 700 mg at 04/23/23 1628 dextrose (GLUTOSE) 40 % gel 15 g 15 g oral Q15 Min PRN Amilcar Hancock MD 15 g at 04/22/23 1155 Or dextrose (D10W) 10% bolus 250 mL 250 mL intravenous Q15 Min PRN Amilcar Hancock MD ergocalciferol (VITAMIN D) capsule 50,000 Units 50,000 Units oral Weekly Golden Kidd MD 50,000 Units at 04/17/23 1437 folic acid (FOLVITE) tablet 1 mg 1 mg oral Daily Hein Rabago MD 1 mg at 04/22/23 0916 furosemide (LASIX) 10 mg/mL injection 80 mg 80 mg intravenous Q8H [facility] Golden Kidd MD 80 mg at04/24/23 0556 glucagon injection 1 mg 1 mg intramuscular Q30 Min PRN Amilcar Hancock MD [Held by Provider] heparin 5,000 unit/mL injection 7,500 Units 7,500 Units subcutaneous Q8H [facility] Amilcar Hancock MD 7,500 Units at 04/22/23 1520 HYDROmorphone (DILAUDID) injection 0.5 mg 0.5 mg intravenous Q4H PRN Hien Rabago MD 0.5 mgat 04/18/23 1818 insulin lispro (HumaLOG, ADMELOG) 100 unit/mL injection 0-4 Units 0-4 Units subcutaneous Nightly Amilcar Hancock MD insulin lispro (HumaLOG, ADMELOG) 100 unit/mL injection 0-5 Units 0-5 Units subcutaneous TID with meals Amilcar Hancock MD ipratropium-albuteroL (DUO-NEB) 0.5-2.5 mg/3 mL nebulizer solution 3 mL 3 mL nebulization Q4H PRN (RT) Darell Paniagua MD 3 mL at 04/22/23 0305 metroNIDAZOLE (FLAGYL) tablet 500 mg 500 mg oral TID Dante Stubbs MD 500 mg at 04/23/23 1801 miconazole 2 % powder topical BID Willie Castro MD Given at 04/23/23 2155 ondansetron ODT (ZOFRAN-ODT) disintegrating tablet 4 mg 4 mg oral Q6H PRN Amilcar Hancock MD Or ondansetron (ZOFRAN) injection 4 mg 4 mg intravenous Q6H PRN Amilcar Hancock MD 4 mg at 04/23/23 1827 sodium chloride (OCEAN) 0.65 % nasal spray 1 spray 1 spray each nostril Q2H PRN Darell Paniagua MD sodium chloride 0.9% flush 5-20 mL 5-20 mL intra-catheter PRN Hien Rabago MD sodium chloride 0.9% flush 5-20 mL 5-20 mL intra-catheter PRN Dante Stubbs MD spironolactone (ALDACTONE) tablet 50 mg 50 mg oral BID DIURETIC Golden iKdd MD 50 mg at 04/23/23 1556 thiamine (VITAMIN B-1) tablet 50 mg 50 mg oral Daily Hien Rabago MD 50 mg at 04/22/23 0916 Allergies: No Known Allergies Family History: History reviewed. No pertinent family history. Social History: Social History Tobacco Use Smoking status: Never Smokeless tobacco: Never Substance and Sexual Activity Drug use: Never Sexual activity: None Alcohol Use: Not on file Review of Systems: Review of Systems Constitutional: Positive for fatigue. Negative for appetite change, chills and fever. HENT: Negative for congestion, ear pain, mouth sores, tinnitus and voice change. Eyes: Negative for photophobia and pain. Respiratory: Positive for cough and shortness of breath. Negative for choking and stridor. Cardiovascular: Positive for leg swelling. Negative for chest pain and palpitations. Gastrointestinal: Negative for abdominal distention, abdominal pain and nausea. Endocrine: Negative for cold intolerance and polyphagia. Genitourinary: Negative for dysuria and hematuria. Musculoskeletal: Positive for gait problem. Negative for joint swelling. Skin: Negative for pallor and rash. Allergic/Immunologic: Negative for immunocompromised state. Neurological: Positive for weakness. Negative for seizures and facial asymmetry. Hematological: Negative for adenopathy. Does not bruise/bleed easily. Psychiatric/Behavioral: Negative for agitation and confusion. Physical Exam: Vitals: 04/23/23 2110 04/23/23 2319 04/24/23 0354 04/24/23 0555 BP: 169/89 167/95 164/92 BP Location: Left arm Left arm Patient Position: HOB 30 degrees HOB 30 degrees Pulse: 91 89 88 Resp: 18 18 Temp: 36.9 ??C (98.4 ??F) 36.9 ??C (98.5 ??F) TempSrc: Oral Oral SpO2: 94% 91% Weight: Height: Physical Exam Constitutional: General: She is not in acute distress. Appearance: She is well-developed. She is morbidly obese. She is ill-appearing. She is not diaphoretic. HENT: Head: Normocephalic and atraumatic. Neck: Thyroid: No thyromegaly. Cardiovascular: Rate and Rhythm: Normal rate and regular rhythm. Heart sounds: No murmur heard. No gallop. Pulmonary: Effort: Pulmonary effort is normal. No accessory muscle usage or respiratory distress. Breath sounds: No stridor. Examination of the right-upper field reveals decreased breath sounds. Examination of the left-upper field reveals decreased breath sounds. Examination of the right-lower field reveals rales. Examination of the left-lower field reveals rales. Decreased breath sounds and rales present. Chest: Chest wall: No tenderness. Abdominal: General: Bowel sounds are normal. There is no distension. Palpations: Abdomen is soft. Tenderness: There is no abdominal tenderness. Musculoskeletal: General: No tenderness or deformity. Normal range of motion. Cervical back: Normal range of motion and neck supple. Right lower leg: Edema present. Left lower leg: Edema present. Comments: Left BKA Lymphadenopathy: Cervical: No cervical adenopathy. Skin: General: Skin is warm and dry. Capillary Refill: Capillary refill takes less than 2 seconds. Findings: Lesion and rash present. No erythema. Neurological: Mental Status: She is alert and oriented to person, place, and time. Cranial Nerves: No cranial nerve deficit. Motor: Weakness present. Coordination: Coordination normal. Psychiatric: Mood and Affect: Mood is depressed. Behavior: Behavior normal. Data Reviewed Recent Results (from the past 24 hour(s)) Comprehensive metabolic panel Collection Time: 04/23/23 9:23 AM Result Value Ref Range Sodium 143 135 - 145 mmol/L Potassium, pl 3.3 3.3 - 4.9 mmol/L Chloride 106 97 - 110 mmol/L CO2 29 22 - 32 mmol/L Anion gap 8 2 - 15 mmol/L BUN 16 6 - 25 mg/dL Creatinine 1.30 (H) 0.60 - 1.10 mg/dL Glucose 106 70 - 199 mg/dL Calcium 8.3 (L) 8.5 - 10.3 mg/dL Bilirubin, total 0.4 0.1 - 1.2 mg/dL Protein, pl 5.8 (L) 6.5 - 8.5 g/dL Albumin 2.0 (L) 3.5 - 5.0 g/dL Alk phos 241 (H) 40 - 130 Units/L ALT 11 7 - 45 Units/L AST 13 10 - 45 Units/L Magnesium Collection Time: 04/23/23 9:23 AM Result Value Ref Range Magnesium 1.5 1.4 - 2.5 mg/dL Phosphorus Collection Time: 04/23/23 9:23 AM Result Value Ref Range Phosphorus, pl 3.0 2.3 - 4.5 mg/dL CBC with auto differential Collection Time: 04/23/23 9:23 AM Result Value Ref Range WBC 16.5 (H) 3.8 - 9.9 K/cumm Hgb 7.8 (L) 11.9 - 15.5 g/dL Hct 25.4 (L) 35.6 - 45.5 % Plt 461 (H) 150 - 400 K/cumm MPV 8.7 (L) 9.1 - 12.3 fL RBC 2.94 (L) 3.90 - 5.20 M/cumm MCV 86.4 81.3 - 96.4 fL MCH 26.5 (L) 27.1 - 33.3 pg MCHC 30.7 (L) 32.3 - 35.7 g/dL RDW CV 17.3 (H) 11.1 - 14.9 % RDW SD 54.4 (H) 35.7 - 48.1 fL NRBC abs 0.02 (H) 0.00 - 0.01 K/cumm Differential, auto Collection Time: 04/23/23 9:23 AM Result Value Ref Range Neutrophil abs 12.8 (H) 1.7 - 6.5 K/cumm Imm gran abs 0.2 (H) 0.0 - 0.1 K/cumm Lymphocyte abs 1.9 0.8 - 3.3 K/cumm Monocyte abs 1.3 (H) 0.2 - 0.8 K/cumm Eosinophil abs 0.3 0.0 - 0.5 K/cumm Basophil abs 0.1 0.0 - 0.1 K/cumm Neutrophil pct 77.8 % Imm gran pct 1.0 % Lymphocyte pct 11.4 % Monocyte pct 7.8 % Eosinophil pct 1.7 % Basophil pct 0.3 % eGFR Collection Time: 04/23/23 9:23 AM Result Value Ref Range eGFR 57 mL/min/1.73 m2 CBC with auto differential Collection Time: 04/23/23 10:51 AM Result Value Ref Range WBC 16.9 (H) 3.8 - 9.9 K/cumm Hgb 7.9 (L) 11.9 - 15.5 g/dL Hct 25.9 (L) 35.6 - 45.5 % Plt 488 (H) 150 - 400 K/cumm MPV 8.8 (L) 9.1 - 12.3 fL RBC 3.02 (L) 3.90 - 5.20 M/cumm MCV 85.8 81.3 - 96.4 fL MCH 26.2 (L) 27.1 - 33.3 pg MCHC 30.5 (L) 32.3 - 35.7 g/dL RDW CV 17.2 (H) 11.1 - 14.9 % RDW SD 54.2 (H) 35.7 - 48.1 fL NRBC abs 0.00 0.00 - 0.01 K/cumm Creatine kinase (CK), total Collection Time: 04/23/23 10:51 AM Result Value Ref Range CK 211 (H) 30 - 200 Units/L Differential, auto Collection Time: 04/23/23 10:51 AM Result Value Ref Range Neutrophil abs 13.3 (H) 1.7 - 6.5 K/cumm Imm gran abs 0.2 (H) 0.0 - 0.1 K/cumm Lymphocyte abs 1.9 0.8 - 3.3 K/cumm Monocyte abs 1.1 (H) 0.2 - 0.8 K/cumm Eosinophil abs 0.3 0.0 - 0.5 K/cumm Basophil abs 0.1 0.0 - 0.1 K/cumm Neutrophil pct 78.8 % Imm gran pct 0.9 % Lymphocyte pct 11.3 % Monocyte pct 6.8 % Eosinophil pct 1.9 % Basophil pct 0.3 % POCT glucose Collection Time: 04/23/23 12:07 PM Result Value Ref Range Glucose, POC 131 70 - 199 mg/dL Glucose comment 1 Use This Result Glucose comment 2 RN/ Notified POCT glucose Collection Time: 04/23/23 3:48 PM Result Value Ref Range Glucose, POC 136 70 - 199 mg/dL Glucose comment 1 Use This Result Glucose comment 2 RN/MD Notified POCT glucose Collection Time: 04/23/23 7:09 PM Result Value Ref Range Glucose, POC 158 70 - 199 mg/dL CBC with auto differential Collection Time: 04/23/23 9:44 PM Result Value Ref Range WBC 17.6 (H) 3.8 - 9.9 K/cumm Hgb 8.1 (L) 11.9 - 15.5 g/dL Hct 26.2 (L) 35.6 - 45.5 % Plt 490 (H) 150 - 400 K/cumm MPV 9.0 (L) 9.1 - 12.3 fL RBC 3.05 (L) 3.90 - 5.20 M/cumm MCV 85.9 81.3 - 96.4 fL MCH 26.6 (L) 27.1 - 33.3 pg MCHC 30.9 (L) 32.3 - 35.7 g/dL RDW CV 17.2 (H) 11.1 - 14.9 % RDW SD 53.5 (H) 35.7 - 48.1 fL NRBC abs 0.00 0.00 - 0.01 K/cumm Differential, auto Collection Time: 04/23/23 9:44 PM Result Value Ref Range Neutrophil abs 14.3 (H) 1.7 - 6.5 K/cumm Imm gran abs 0.2 (H) 0.0 - 0.1 K/cumm Lymphocyte abs 1.7 0.8 - 3.3 K/cumm Monocyte abs 1.1 (H) 0.2 - 0.8 K/cumm Eosinophil abs 0.3 0.0 - 0.5 K/cumm Basophil abs 0.0 0.0 - 0.1 K/cumm Neutrophil pct 81.2 % Imm gran pct 1.0 % Lymphocyte pct 9.7 % Monocyte pct 6.0 % Eosinophil pct 1.9 % Basophil pct 0.2 % Images: CA Pulmonary Perfusion Imaging Result Date: 04/15/2023 Narrative: EXAM DESCRIPTION: CA PULMONARY PERFUSION IMAGING RADIOPHARMACEUTICAL: 4 mCi Tc-99m MAA via a right antecubital vein IV site REASON FOR STUDY: Chest pain. Shortness of breath and cough. TECHNIQUE: Limited multi-planar perfusion scintigrams were obtained. COMPARISON: Chest radiograph 04/15/2023 FINDINGS: Perfusion images obtained in the anterior, anterior oblique, and lateral projectionswere obtained. The posterior and posterior oblique projections were not obtained. There is mild enlargement of the cardiomediastinal silhouette. There are no large segmental perfusion defects on the provided images. IMPRESSION: 1. Limited perfusion lung scan with a low probability for pulmonary embolism. THIS IS AN ELECTRONICALLY VERIFIED FINAL REPORT 04/15/2023 4:31 PM - Electronically signed by Amor MAURER T: Report ID: [id number] Reading Location: [id number] XR Foot Right 3 or More Views Result Date: 04/15/2023 Narrative: EXAM DESCRIPTION: XR FOOT RIGHT 3 OR MORE VIEWS REASON FOR STUDY: Wound infection TECHNIQUE: 3 radiographic view(s) of the right foot . COMPARISON: 02/20/2023 FINDINGS: Plantar soft tissueulceration of the hindfoot with underlying soft tissue gas. There is diffuse soft tissue swelling of the foot, particularly involving the dorsal aspect of the mid to forefoot. No radiopaque foreign bodies. There is suspected mild osseous cortical erosion involving the plantar aspect of the calcaneus when compared to the prior exam. No acute fracture or dislocation. IMPRESSION: Prominent soft tissue ulceration of the plantar aspect of the hindfoot with underlying soft tissue gas. Suspected osseous cortical erosion involving the plantar aspect of the calcaneus, concerning for acute osteomyelitis. THIS IS AN ELECTRONICALLY VERIFIED FINAL REPORT 04/15/2023 2:51 PM - Electronically signed by Rio PHILLIPS T: Report ID: [id number] Reading Location: [id number] XR Chest 1 Vw Portable Result Date: 04/15/2023 Narrative: EXAM DESCRIPTION: XR CHEST 1 VIEW REASON FOR STUDY: Shortness of breath Pt with sob, weakness x 2-3 days Hx lg necrotic wnd on rt foot that she is being treated for Pt is lt leg amputee above the knee TECHNIQUE: 1 radiographic view(s) of the chest. COMPARISON: None FINDINGS: LUNGS: Diffuse bilateral interstitial opacities. No focal consolidation. No pneumothorax. No large pleural effusion. HEART/MEDIASTINUM: Cardiac silhouette is enlarged.. Mediastinal and hilar contours appear normal. LINES/TUBES: None. BONES: No acute osseous abnormality. IMPRESSION: Findings are suggestive of pulmonary edema. THIS IS AN ELECTRONICALLY VERIFIED FINAL REPORT 04/15/2023 2:43 PM - Electronically signed by Rio PHILLIPS T: Report ID: [id number] Reading Location: [id number] Assessment and Plan: Assessment Acute hypoxemic respiratory failure secondary to fluid overload/pulmonary edema and possible sepsis. No history of smoking. Bed bound. Right BKA. Renal insufficiency. Plan Oxygen keep ox saturation more than 92%. Bronchodilators around the clock and as needed with albuterol and Atrovent. Head of bed elevation and aspiration precaution. Diuresis, monitor O2 retires and fluid balance, monitor kidney function. Incentive spirometry and physical therapy. Out of bed to the chair if possible. Pulmonary toilet and pep valve. Check blood culture, sputum culture, ESR, CRP, BNP, procalcitonin and MRSA. Saline nasal spray twice daily. Patient would need outpatient split sleep study. Condition is guarded. Will monitor patient closely. Continue antibiotics, daptomycin and cefepime. Check 2D echocardiogram. 04/16 -continue daptomycin, cefepime, day 2., patient would need 2D echocardiogram to evaluate her cardiomegaly and fluid overload on chest x-ray. Continue monitoring electrolytes, kidney function, input and output. Continue bronchodilators, oxygen supplement keep ox saturation more than 92%, head of bedelevation, aspiration precaution, pep valve, pulmonary toilet, DVT and stress ulcer prophylaxis, continue wound care and continue monitor patient closely. Patient condition is guarded. 04/17 -daptomycin, cefepime(was switched to ceftriaxone and Flagyl), day 3., 2D echocardiogram was reviewed. Continue nutritional support, head of bed elevation, aspiration precaution, pulmonary toilet, DVT and stress ulcer prophylaxis, pep valve, bronchodilators, oxygen supplement keep ox saturation more than 92%, wean oxygen as tolerated, continue wound care, continue diuresis, monitor electrolytes and fluid balance, patient condition continued to be guarded. 04/18 -antibiotics, ceftriaxone, Flagyl and daptomycin, day number 4 continue weaning oxygen keep ox saturation more than 92%, head of bed elevation, aspiration precaution, bronchodilators, incentive spirometry, physical therapy, pep valve, DVT and stress ulcer prophylaxis, pulmonary toilet, continue wound care, diuresis, monitor electrolytes and fluid balance, continue monitor patient closely. She would need outpatient split sleep study. 04/19 - again respiratory failure seems to be likely related to volume overload and acute renal insufficiency. This continues to improve with diuresis. Awaiting labs from today but will continue to monitorrenal function and electrolytes. She continues on antibiotics for right lower extremity osteomyelitis. Low suspicion for eosinophilic pneumonia/pneumonitis from daptomycin. Wean oxygen as tolerated and recommend sleep study as an outpatient. Pulmonary will follow peripherally over the weekend. The patient will be seen by Dr. Paniagua on Friday. Please call with any further questions. 04/21 -patient continued to be on oxygen 4 liter/minute, she does not have oxygen at home. Her albumin isonly 1.3. Continue antibiotics, daptomycin, Rocephin and Flagyl day number 6, continue nutritional support, high-protein diet, diuresis, monitor electrolytes and fluid balance, head of bed elevation,aspiration precaution, incentive spirometry, physical therapy, pulmonary toilet, out of bed to the chair if possible, pulmonary toilet, DVT and stress ulcer prophylaxis, continue weaning oxygen keep ox saturation more than 92%, continue monitor patient closely. Condition is very guarded. 04/22 -continue oxygen supplement, wean as tolerated, head of bed elevation, aspiration precaution, incentive spirometry, physical therapy, pulmonary toilet, sitting on side of bed, out of bed to the chairpossible, daptomycin Rocephin, Flagyl, day 7., continue DVT and stress ulcer prophylaxis, continue diuresis, monitor electrolytes and fluid balance, continue monitor patient closely. Continue bronchodilators Patient condition is guarded. 04/23 -she is feeling very sick. She is having nausea and vomiting. She is on daptomycin, Flagyl and Rocephin, day 8., continue head of bed elevation, aspiration precaution, incentive spirometry, physical therapy, sitting on side of bed, pulmonary toilet, DVT and stress ulcer prophylaxis, pep valve, continue diuresis, monitor electrolytes and fluid balance, continue nutritional support, continue bronchodilators, continue monitor patient closely. Patient condition is guarded. 04/24 -antibiotics daptomycin, Flagyl and Rocephin day number 9, continue diuresis, monitor electrolytes and fluid balance, bronchodilators, head of bed elevation, aspiration precaution, pulmonary toilet, saline side of bed, DVT and stress ulcer prophylaxis, saline nasal spray, continue monitoring hemodynamics, mental status, nutritional status, kidney function, input and output, continue monitor patient closely. Patient condition is guarded. Rendering Provider & Department: Darell Paniagua MD THIS NOTE WAS CREATED IN PART WITH THE ASSISTANCE OF [employer]. ASSISTANT PRODUCER VARIANCES MAY OCCUR. For patients or family members viewing this note through [employer]: This note was written as a communication tool between healthcare providers and may contain technical language, terminology and abbreviations that is difficult to interpret without advanced medical training. If you have questions or concerns regarding what is written in this note, please request to speak with the healthcare provider taking care of you or your family member. * Bhakti Palacios - 04/23/2023 3:29 PM CDT 04/23/23 1500 Time Spent Start Time 1440 Patient Spiritual Assessment Spirituality Assessed Unable to assess Pt sleeping. Offered silent prayer for pt and left prayer card. * Willie Castro MD - 04/23/2023 12:27 PM CDT General Medicine Daily Progress DOA: 04/15/2023 Subjective The patient was seen and examined at bedside, she is hemodynamically stable AO x3. The patient was agitated overnight she removed the oxygen she became hypoxic, patient stated again she does not wantto pursue an amputation, code status was switched to DNR after palliative Care evaluate needed the patient discussed advanced care planning with her. Interval history: The patient is a 32 year female with past medical history of type 2 diabetes, essential hypertension, CHF with preserved ejection fraction and left AKA was admitted in hospital for acute on chronic CHF exacerbation, she was also found to have an ulcer on the right foot. Id was consulted for antibiotic management they recommended ceftriaxone and daptomycin plus Flagyl currently on day 7. Vascular surgery evaluated the patient they recommended an amputation but patient refused. Podiatryis not actively seen patient this week, general surgery was consulted. Pending of the surgical teamrecommendation was IV patient may need to be transferred to a different facility. Patient also presented with acute hypoxic respiratory failure secondary to pulmonary edema in the context of sepsis, pulmonary was consulted they recommended the patient to be put on bronchodilators and patient also receiving IV Lasix. Patient also presented with BOBBY on CKD this is why nephrology was consulted has been following the case, they determined the patient has significant proteinuria, they recommended to increase Lasix tot.I.d. During the night of April 22 was agitated overnight she removed the oxygen she became hypoxic, patient stated again she does not want to pursue an amputation, code status was switched to DNR after palliative Care evaluate needed the patient discussed advanced care planning with her. We contacted transfer center, we are discussing the case with [facility] for possible transfer given the fact we have no podiatry service active in our hospital. We dicussed the case with Dr. Cook and [facility] who refused the patient for transfer, he said they do not do a debridement by his service, he will recommend an amputation or debridement by general surgery. During the afternoon of April 22 nursing staff showed the patient having bright red blood per rectum, H&H has remained stable FOBT was negative we had a discussion with GI they recommended bleeding scan given the patient BOBBY, bleeding scan was done and showed no evidence of active bleeding. Past Medical History: Diagnosis Date CHF (congestive heart failure) ([facility]) ([facility]) CKD (chronic kidney disease) Diabetes mellitus ([facility]) Hx of AKA (above knee amputation) ([facility]) ([facility]) Left Hypertension Objective Vitals: 24hr Min/Max: Temp Min: 36.5 ??C (97.7 ??F) Max: 37.8 ??C (100.1 ??F) Pulse Min: 76 Max: 102 BP Min: 148/78 Max: 165/80 Resp Min: 16 Max: 20 SpO2 Min: 57 % Max: 96 % Most Recent : Vitals: 04/23/23 1100 BP: 165/80 Pulse: 76 Resp: 18 Temp: 36.5 ??C (97.7 ??F) SpO2: 96% I/O last 2 completed shifts: In: 30 [IV Piggyback:30] Out: 4500 [Urine:4500] I/O this shift: In: - Out: 850 [Urine:850] Physical Exam: Physical Exam Constitutional: Appearance: She is well-developed. She is obese. She is ill-appearing. She is not diaphoretic. HENT: Head: Normocephalic. Mouth/Throat: Mouth: Mucous membranes are moist. Eyes: Pupils: Pupils are equal, round, and reactive to light. Neck: Thyroid: No thyromegaly. Vascular: No JVD. Cardiovascular: Rate and Rhythm: Normal rate and regular rhythm. Pulmonary: Effort: Pulmonary effort is normal. No tachypnea. Breath sounds: Examination of the right-lower field reveals rales. Examination of the left-lower field reveals rales. Decreased breath sounds and rales present. No wheezing or rhonchi. Chest: Chest wall: No mass. Abdominal: General: Bowel sounds are normal. Palpations: Abdomen is soft. There is no hepatomegaly. Musculoskeletal: General: Normal range of motion. Cervical back: Normal range of motion. Right lower leg: Edema present. Comments: Left AKA Skin: General: Skin is warm. Capillary Refill: Capillary refill takes less than 2 seconds. Coloration: Skin is not pale. Findings: Ecchymosis and erythema present. No rash. Neurological: General: No focal deficit present. Mental Status: She is alert and oriented to person, place, and time. Psychiatric: Mood and Affect: Mood normal. Lab/Radiology/Diagnostic Review: Laboratory review: Chemistry BMP Lab Results Component Value Date GLUCOSE 131 04/23/2023 GLUCOSE 106 04/23/2023 CALCIUM 8.3 (L) 04/23/2023 SODIUM 143 04/23/2023 POTASSIUM 3.3 04/23/2023 CO2 29 04/23/2023 BUNSER 16 04/23/2023 CREATININE 1.30 (H) 04/23/2023 and CBC: Lab Results Component Value Date WBC 16.9 (H) 04/23/2023 RBC 3.02 (L) 04/23/2023 HGB 7.9 (L) 04/23/2023 HCT 25.9 (L) 04/23/2023 MCV 85.8 04/23/2023 MCH 26.2 (L) 04/23/2023 MCHC 30.5 (L) 04/23/2023 RDWCV 17.2 (H) 04/23/2023 RDWSD 54.2 (H) 04/23/2023 MPV 8.8 (L) 04/23/2023 NRBCABS 0.00 04/23/2023 Current Facility-Administered Medications Medication Dose Route Frequency Provider Last Rate Last Admin acetaminophen (TYLENOL) tablet 650 mg 650 mg oral Q4H PRN Amilcar Hancock MD albumin 25 % bottle 25 g 25 g intravenous TID Dallas Peña MD sodium chloride 0.9% flush 0.5-20 mL 0.5-20 mL intra-catheter Q8H Amilcar Vee MD 10 mL at04/21/23 1304 And sodium chloride 0.9% flush 0.5-20 mL 0.5-20 mL intra-catheter PRN Amilcar Hancock MD And Carrier Fluids for Secondary Infusion - 0.9% Sodium Chloride 30 mL intravenous PRN Amilcar Hancock MD cefTRIAXone (ROCEPHIN) 2,000 mg/20 mL in sterile water (premix) 2,000 mg 2,000 mg intravenous Q24H Dante Fitzgerald MD 2,000 mg at 04/21/23 0909 DAPTOmycin (CUBICIN) 50 mg/mL sodium chloride 0.9% 700 mg 700 mg intravenous Q24H Amilcar Hancock MD 700 mg at 04/21/23 1303 dextrose (GLUTOSE) 40 % gel 15 g 15 g oral Q15 Min PRN Amilcar Hancock MD Or dextrose (D10W) 10% bolus 250 mL 250 mL intravenous Q15 Min PRN Amilcar Hancock MD ergocalciferol (VITAMIN D) capsule 50,000 Units 50,000 Units oral Weekly Golden Kidd MD 50,000 Units at 04/17/23 1437 folic acid (FOLVITE) tablet 1 mg 1 mg oral Daily Hien Rabago MD 1 mg at 04/21/23 0908 furosemide (LASIX) 10 mg/mL injection 80 mg 80 mg intravenous BID DIURETIC Amilcar Hancock MD 80 mg at 04/21/23 0908 glucagon injection 1 mg 1 mg intramuscular Q30 Min PRN Amilcar Hancock MD heparin 5,000 unit/mL injection 7,500 Units 7,500 Units subcutaneous Q8H Amilcar Vee MD 7,500 Units at 04/21/23 1304 HYDROmorphone (DILAUDID) injection 0.5 mg 0.5 mg intravenous Q4H PRN Hien Rabago MD 0.5 mgat 04/18/231817 insulin glargine (LANTUS, SEMGLEE) 100 unit/mL injection 22 Units 0.15 Units/kg subcutaneous Nightly Amilcar Hancock MD 22 Units at 04/19/232150 insulin lispro (HumaLOG, ADMELOG) 100 unit/mL injection 0-4 Units 0-4 Units subcutaneous Nightly Amilcar Hancock MD insulin lispro (HumaLOG, ADMELOG) 100 unit/mL injection 0-5 Units 0-5 Units subcutaneous TID with meals Amilcar Hancock MD insulin lispro (HumaLOG, ADMELOG) 100 unit/mL injection 7 Units 0.05 Units/kg subcutaneous TID withmeals Amilcar Hancock MD 7 Units at 04/16/231800 ipratropium-albuteroL (DUO-NEB) 0.5-2.5 mg/3 mL nebulizer solution 3 mL 3 mL nebulization Q4H PRN (RT) Darell Paniagua MD metroNIDAZOLE (FLAGYL) tablet 500 mg 500 mg oral TID Dante Stubbs MD 500 mg at 04/21/23 0908 ondansetron ODT (ZOFRAN-ODT) disintegrating tablet 4 mg 4 mg oral Q6H PRN Amilcar Hancock MD Or ondansetron (ZOFRAN) injection 4 mg 4 mg intravenous Q6H PRN Amilcar Hancock MD sodium chloride (OCEAN) 0.65 % nasal spray 1 spray 1 spray each nostril Q2H PRN Darell Paniagua MD sodium chloride 0.9% flush 5-10 mL 5-10 mL intra-catheter Q12H ERICK Hien Rabago MD 10 mL at04/21/23 0920 sodium chloride 0.9% flush 5-20 mL 5-20 mL intra-catheter PRN Hien Rabago MD spironolactone (ALDACTONE) tablet 25 mg 25 mg oral BID DIURETIC Dallas Peña MD 25 mg at 04/21/23 0908 thiamine (VITAMIN B-1) tablet 50 mg 50 mg oral Daily Hien Rabago MD 50 mg at 04/21/23 0908 Assessment/Plan Active Problems: Acute diastolic congestive heart failure (CMS/HCC) (HCC) Type II diabetes mellitus with foot ulcer (HCC) Hypertension Acute respiratory failure with hypoxia (CMS/HCC) (HCC) Diarrhea Acute kidney failure (HCC) Elevated troponin Osteomyelitis (HCC) Wounds, multiple Plan # acute hypoxemic respiratory failure 2/2 CHF exacerbation with acute heart failure On 4 L supplemental oxygen -patient is morbidly obese, likely OHS component -echocardiogram to rule out heart failure exacerbation -on Lasix 80 mg IV T.i.d. # COPD -improved respiratory distress -continue bronchodilator # iron-deficiency anemia and folate deficiency - completed IV iron sucrose - start on oral ferrous sulfate # acute osteomyelitis of the right foot calcaneum # abdominal wall infection panniculitis - afebrile, improved leukocytosis - on ceftriaxone and Flagyl day 8, daptomycin day 8 - podiatry would not available for wound debridement - general surgery was consulted for right foot wound debridement yesterday - PICC line in place for discharge planning - We dicussed the case with Dr. Cook and [facility] who refused the patient for transfer, he said they do not do a debridement by his service, he will recommend an amputation or debridement by general surgery. # diabetes mellitus - patient fasting blood sugar was 71 I am decreasing Lantus to 18 # CKD 3A secondary to possible nephrotic syndrome Stable - Fortune catheter in place -follow renal consult recommendation - Lasix was increased to t.I.d. # PVD - vascular surgery recommended amputation but patient refused. At this point waiting for recommendations from General surgery, Podiatry is not active at this moment. Questionable GI bleed Put on hold DVT prophylaxis. H&H has remained stable GI consult Bleeding scan was negative DVT prophylaxis: On hold Heparin patient was given sequential device GI prophylaxis: Ppi Rehab consult: Ongoing CODE status: LIMITED - No CPR Discharge disposition: SNF It took me 37 minutes review the case, place pertinent orders, discussed current findings with the patient and examined her. * Renae Navarro LPC - 04/23/2023 10:35 AM CDT [facility] called [facility] regarding consult. She states she can ask the patient but is not sure if she will be willing since she has turned it down once. An [employer] secure chat message was sent to the RN. [id number] RN messaged patient can do the consult after lunch. [phone] [facility] messaged RN to see if patient can do the consult now. [phone] They are getting the iPad now. [id number] Patient has the iPad. * Shakila Harvey PTA - 04/23/2023 10:13 AM CDT Physical Therapy 04/23/23 1013 PT Last Visit Session Type Treatment PT Received On 04/23/23 Safe Environment Arm band checked;Patient found in supine Subjective Agreeable to Therapy Subjective Comment per pt had a rough night secondary to vomitting per pt has decreased vision Family/Caregiver Present No Precautions Precautions Bed/Chair Alarm;Fall risk Weight Bearing Restrictions Yes RLE Weight Bearing NWB Precaution Comments iv telemetry catheter sats 91%, RR 3, 6, HR 91, 4 liters of oxyen Activity Tolerance Endurance Tolerates 10 - 20 min activity with multiple rests Pain Assessment Pain Assessment No/denies pain Pain Score 0 - No pain Cognition Orientation Oriented X4 (person, place, time, situation) Static Sitting Balance Static Sitting-Balance Support Bilateral upper extremity supported Static Sitting-Sitting Surface Bed Static Sitting-Level of Assistance Contact guard;Minimum assistance (of 1 to maintain sitting balance, did reaching with either u.e. pt had a hard time seeing staff ' s hand) Static Sitting-Comment/# of Minutes fair minus sitting balance Seated Seated-Exercises Lower extremity Reps/Sets 10/1 Seated-Motion AROM;AAROM Seated-Exercise Comments ankle pumps, knee extensions, marching of left leg Bed Mobility 1 Bed Mobility From 1 Supine Bed Mobility Type 1 To and from Bed Mobility to 1 Short sit;Edge of bed Level of Assistance 1 Maximum Assist (of 3 with hover pad , max of 3 to boost in bed) Safe Environment End of Therapy Session Safe Environment End of Therapy Session Patient left supine in bed;Call light within reach;Overbed table within reach;Bed in lowest position with wheels locked;Bed rails up per protocol Recommendation/Plan PT Recommendation/Plan (S) Inpatient Rehab Facility Patient at high risk for Falls;Injury due to decreased ability to care for self;Injury due to reduced functional status;Injury at home as patient has not returned to prior level of function Recommend Inpatient Rehab/Acute Rehab due to Ability to actively participate in intensive therapy 3hours/day, 5 days/week or 900 minutes per week;Highly motivated to participate in therapy;Likely toreturn to the community at discharge with support system in place;Requires greater than 25% physical assistance with most mobility tasks;Requires greater than 25% physical assistance with most ADL tasks;Requires multiple therapy disciplines to address functional deficits Progress during current admission Slow progress, decreased activity tolerance Co treat with KEVIN Salas, and assisted by Esthela Mota PTA Multi-Disciplinary Problems (from Physical Therapy) Active Problems Problem: Transfers Start Date: 04/22/23 Goal Start Date Expected End Date End Date STG - Patient to transfer to and from sit to supine 04/22/23 05/05/23 -- Goal Details: With Min A +2, and cues. - unmet Goal Start Date Expected End Date End Date STG - Patient will perform bed mobility 04/22/23 05/05/23 -- Goal Details: With bed rails, with Min A +1, and cues. - unmet Problem: Balance Start Date: 04/22/23 Goal Start Date Expected End Date End Date STG - Maintains static sitting balance with upper extremity support 04/22/23 05/05/23 -- Goal Details: For 15 minutes, while sitting on EOB and working on seated ex's and seated daily activities, with supervision of 1, and cues. Pt to progress to seated activities without UE support, andadvance to seated resistive band ex's at bedside. - progressing Problem: PT Misc Start Date: 04/22/23 Goal Start Date Expected End Date End Date PT LTG - Misc 1 04/22/23 05/05/23 -- Goal Details: The Pt will perform Therapeutic AROM ex's for B UE's and B LE's, in supine or in sitting, 1 set of 10 reps, daily, with cues, in pain-free ROM, and with Therapeutic Rest Breaks, as needed. The Pt will progress to strengthening ex's for B UE's, for biceps and triceps, with light-resistance exercise bands, as able. Goal Start Date Expected End Date End Date PT LTG - [facility] [place] [facility] 04/22/23 05/05/23 -- Goal Details: The Pt will advance to bed <-> drop arm cardiac chair sliding board transfers, with Mod A +2, as cedric., with care taken to avoid shearing forces on Pt's buttocks and limited WB'ingthru Pt's R LE, while R foot rests on the floor for sliding board transfer. (Pt may need stephany liftpad in chair before Pt gets up to cardiac chair. However, as Pt has old L AKA, if stephany lift is used, care to be taken). - not performed Reviewed By Eunice Ferguson RN 04/21/23 0414 Eunice Ferguson RN 04/20/23 0459 Educated the patient to the role of physical therapy, plan of care, goals of therapy, rationale forprogressing mobility and weight bearing precautions. Patient was left with all needs met and equipment intact. Mobility and ADL status posted at bedsideand within medical record. * Jeanna Amin COTA - 04/23/2023 10:13 AM CDT Occupational Therapy 04/23/23 1014 General Session Type Treatment OT Received On 04/23/23 Safe Environment Arm band checked;Patient found in supine Subjective Agreeable to Therapy Subjective Comment pt reports having difficulty seeing when given items for oral care. Precautions Precautions Fall risk;Bed/Chair Alarm Weight Bearing Restrictions Yes RLE Weight Bearing NWB Precaution Comments IV, tele, catheter, prevlon boots, 4L O2, low vision Pain Assessment Pain Assessment No/denies pain Static Sitting Balance Static Sitting-Balance Support Bilateral upper extremity supported;Feet supported Static Sitting-Sitting Surface Bed Static Sitting-Level of Assistance Contact guard;Minimum assistance Static Sitting-Comment/# of Minutes F- sitting balance Grooming Grooming: Where assessed Edge of bed Grooming: Level of assistance Minimum Assist Grooming: Assistance with Teeth care;Wash/dry face Bed Mobility 1 Bed Mobility From 1 Supine Bed Mobility Type 1 To and from Bed Mobility to 1 Edge of bed Level of Assistance 1 Maximum Assist Bed Mobility Comments 1 x3 assist for safety Activity Tolerance Endurance Tolerates 10 - 20 min activity with multiple rests Safe Environment End of Therapy Session Safe Environment End of Therapy Session Patient left supine in bed;Call light within reach;Overbed table within reach;Bed in lowest position with wheels locked;Bed rails up per protocol (HOB elevated to 30*) Assessment Prognosis Fair Problem List Decreased upper extremity strength;Decreased endurance;Decreased balance;Decreased functional mobility;Decreased ADL independence;Decreased IADL independence;Decreased trunk control for functional activities;Decreased frequency/variety of movement;Gait Barriers to Discharge Current Mobility Status;Home environment challenged Plan Plan Continue with current plan Recommendation/Plan OT Recommendation Inpatient Rehab Facility Patient at high risk for Falls;Readmission;Injury due to decreased ability to care for self;Injury due to reduced functional status;Injury due to balance deficits;Injury at home as patient has not returned to prior level of function;Developing impaired skin integrity;Prolonged dependence for self care tasks;Developing secondary complications: poor health management Recommend Inpatient Rehab/Acute Rehab due to Not at baseline due to impaired ability to complete ADLs;Impaired ability to complete functional mobility;Requires greater than 25% physical assistance with most mobility tasks;Likely to return to the community at discharge with support system in place;Requires greater than 25% physical assistance with most ADL tasks;Requires multiple therapy disciplines to address functional deficits;Patient and caregiver require specialized skilled training due to new level of function/diagnosis;Requires skilled therapy interventions to address neurological deficits OT Frequency during current admission 5-7x/wk Treatment/Interventions during current admission ADL/IADL retraining;Balance Training;Compensatory technique education;Endurance training;Functional activity;Functional mobility training;Functional transfer training;Parent/caregiver training and education;Strengthening;Therapeutic activity;Therapeutic exercise;Transfer training OT Equipment Recommended Hospital bed (bariatric stephany) Progress during current admission Improving as expected Pt attempted at 9:34, pt with RN and CNAs for medication and hygiene * Dante Stubbs MD - 04/23/2023 10:03 AM CDT Progress Note Infectious Diseases Chief complaint: Right calcaneal bone osteomyelitis. Diabetic foot infection. Shortness of breath Subjective No fever or chills. No pain today. Objective Vitals: 04/23/23 0715 BP: Pulse: Resp: Temp: SpO2: 93% Constitutional: Alert, oriented x3. In no distress. Eyes: Sclerae anicteric, no conjunctival erythema Lungs: Clear breath sounds, no crackles, no wheezes Heart: Regular rate and rhythm, no murmurs Abdomen: Bowel sounds present, soft, nontender Skin: Warm and dry, No rashes Extremities: Right lower extremity chronic edema with stasis dermatitis. Right heel plantar aspect no change. Central area of necrosis. Left AKA stump site no pressure related skin injury Neuro: No motor deficit Psych: No anxiety Current Medications: Current Facility-Administered Medications Medication Dose Route Frequency Provider Last Rate Last Admin acetaminophen (TYLENOL) tablet 650 mg 650 mg oral Q4H PRN Amilcar Hancock MD buPROPion (WELLBUTRIN) tablet 50 mg 50 mg oral BID Hien Rabago MD 50 mg at 04/21/23 2226 sodium chloride 0.9% flush 0.5-20 mL 0.5-20 mL intra-catheter Q8H Amilcar Vee MD 10 mL at04/22/23 1520 And sodium chloride 0.9% flush 0.5-20 mL 0.5-20 mL intra-catheter PRN Amilcar Hancock MD And Carrier Fluids for Secondary Infusion - 0.9% Sodium Chloride 30 mL intravenous PRN Amilcar Hancock MD 30 mL at 04/22/232053 Carrier Fluids for Secondary Infusion - 0.9% Sodium Chloride 30 mL intravenous PRN Hien Rabago MD cefTRIAXone (ROCEPHIN) 2,000 mg/20 mL in sterile water (premix) 2,000 mg 2,000 mg intravenous Q24H Dante Fitzgerald MD 2,000 mg at 04/23/23 0936 DAPTOmycin (CUBICIN) 50 mg/mL sodium chloride 0.9% 700 mg 700 mg intravenous Q24H Amilcar Hancock MD 700 mg at 04/22/23 1743 dextrose (GLUTOSE) 40 % gel 15 g 15 g oral Q15 Min PRN Amilcar Hancock MD 15 g at 04/22/23 1155 Or dextrose (D10W) 10% bolus 250 mL 250 mL intravenous Q15 Min PRN Amilcar Hancock MD ergocalciferol (VITAMIN D) capsule 50,000 Units 50,000 Units oral Weekly Golden Kidd MD 50,000 Units at 04/17/23 1437 folic acid (FOLVITE) tablet 1 mg 1 mg oral Daily Hien Rabago MD 1 mg at 04/23/23 0936 furosemide (LASIX) 10 mg/mL injection 80 mg 80 mg intravenous Q8H [facility] Golden Kidd MD 80 mg at04/22/23 2042 glucagon injection 1 mg 1 mg intramuscular Q30 Min PRN Amilcar Hancock MD [Held by Provider] heparin 5,000 unit/mL injection 7,500 Units 7,500 Units subcutaneous Q8H [facility] Amilcar Hancock MD 7,500 Units at 04/22/23 1520 HYDROmorphone (DILAUDID) injection 0.5 mg 0.5 mg intravenous Q4H PRN Hien Rabago MD 0.5 mgat 04/18/23 1818 insulin lispro (HumaLOG, ADMELOG) 100 unit/mL injection 0-4 Units 0-4 Units subcutaneous Nightly Amilcar Hancock MD insulin lispro (HumaLOG, ADMELOG) 100 unit/mL injection 0-5 Units 0-5 Units subcutaneous TID with meals Amilcar Hancock MD ipratropium-albuteroL (DUO-NEB) 0.5-2.5 mg/3 mL nebulizer solution 3 mL 3 mL nebulization Q4H PRN (RT) Darell Paniagua MD 3 mL at 04/22/23 0305 metroNIDAZOLE (FLAGYL) tablet 500 mg 500 mg oral TID Dante Stubbs MD 500 mg at 04/23/23 0936 miconazole 2 % powder topical BID Willie Castro MD Given at 04/23/23 0936 ondansetron ODT (ZOFRAN-ODT) disintegrating tablet 4 mg 4 mg oral Q6H PRN Amilcar Hancock MD Or ondansetron (ZOFRAN) injection 4 mg 4 mg intravenous Q6H PRN Amilcar Hancock MD 4 mg at 04/22/23 0730 sodium chloride (OCEAN) 0.65 % nasal spray 1 spray 1 spray each nostril Q2H PRN Darell Paniagua MD sodium chloride 0.9% flush 5-20 mL 5-20 mL intra-catheter PRN Hien Rabago MD sodium chloride 0.9% flush 5-20 mL 5-20 mL intra-catheter PRN Dante Stubbs MD spironolactone (ALDACTONE) tablet 50 mg 50 mg oral BID DIURETIC Golden Kidd MD 50 mg at 04/23/23 0936 thiamine (VITAMIN B-1) tablet 50 mg 50 mg oral Daily Hien Rabago MD 50 mg at 04/23/23 0936 No Known Allergies Social History Tobacco Use Smoking status: Never Smokeless tobacco: Never Substance and Sexual Activity Drug use: Never Sexual activity: None Alcohol Use: Not on file History reviewed. No pertinent family history. Lab Results Component Value Date HGBA1C 6.5 (H) 04/16/2023 TSH 4.01 04/16/2023 TIBC 186 (L) 04/16/2023 INR 1.3 (H) 04/15/2023 DDIMER 4,470 (H) 04/19/2023 CHOLHDL 3 04/17/2023 HCT 25.4 (L) 04/23/2023 MCH 26.5 (L) 04/23/2023 MCV 86.4 04/23/2023 MPV 8.7 (L) 04/23/2023 HDL 38 (L) 04/17/2023 RBC 2.94 (L) 04/23/2023 RDW 11.7 12/13/2017 WBC 16.5 (H) 04/23/2023 Assessment/Plan 1. Right diabetic foot infection with osteomyelitis of the calcaneal bone from a contiguous necrotic soft tissue infection. Currently on Rocephin, daptomycin and Flagyl day 8. Remains afebrile and white count is trending down. Will need debridement of the heel. Patient has refused amputation. Discussed with hospitalist if no podiatry surgery is available transferred to tertiary center. 2. Leukocytosis white count slowly trending down at 16,000 secondary to ongoing soft tissue and bone infection. Anticipating white count to trend down but will need debridement of necrotic tissue. 3. Type 2 diabetes with blood sugars ranging between 64-123. Avoid hypoglycemic event. 4. Acute kidney injury and renal function slowly improving. Creatinine is at 1.3 and GFR of 57. 5. Obesity with BMI of 55. 6. Shortness of breaths suspect congestive heart failure BNP of greater than 10,000 Dante Stubbs MD [facility] Infectious Disease [place] Office [phone] * Golden Kidd MD - 04/23/2023 9:57 AM CDT Renal Progress Note Admit Date: 04/15/2023 Days: 8 Reason for Follow up: Acute on chronic kidney failure Clinical Course/New Symptoms Reports nausea vomiting last night feeling better this morning. Has just returned from nuclear [employer] study to evaluate potential GI bleed Data Vitals: 04/23/23 0715 BP: Pulse: Resp: Temp: SpO2: 93% f breath Exam Constitutional: alert and oriented. Appears well-developed and well-nourished, in no distress. HighBMI Head: Normocephalic. Eyes: No icterus, extraocular movements normal Neck: Neck supple. Cardiovascular: Normal rate and regular rhythm. No murmur heard. Pulmonary/Chest: Diminished breath sounds bilaterally, on oxygen via nasal cannula. Abdominal: Soft. Musculoskeletal: Right lower extremity edema. Heel ulcer is visible. Neurological: alert and moves all 4 limbs. Skin: No rashes Intake/Output Summary (Last 24 hours) at 04/23/2023 0957 Last data filed at 04/23/2023 0500 Gross per 24 hour Intake 30 ml Output 4500 ml Net -4470 ml MEDICATIONS FOR CURRENT ENCOUNTER: SCHEDULED MEDICATIONS: Scheduled Medications Medication Dose Route Frequency buPROPion (WELLBUTRIN) tablet 50 mg 50 mg oral BID cefTRIAXone (ROCEPHIN) 2,000 mg/20 mL in sterile water (premix) 2,000 mg 2,000 mg intravenous Q24H ERICK DAPTOmycin (CUBICIN) 50 mg/mL sodium chloride 0.9% 700 mg 700 mg intravenous Q24H ergocalciferol (VITAMIN D) capsule 50,000 Units 50,000 Units oral Weekly folic acid (FOLVITE) tablet 1 mg 1 mg oral Daily furosemide (LASIX) 10 mg/mL injection 80 mg 80 mg intravenous Q8H ERICK [Held by Provider] heparin 5,000 unit/mL injection 7,500 Units 7,500 Units subcutaneous Q8H ERICK insulin lispro (HumaLOG, ADMELOG) 100 unit/mL injection 0-4 Units 0-4 Units subcutaneous Nightly insulin lispro (HumaLOG, ADMELOG) 100 unit/mL injection 0-5 Units 0-5 Units subcutaneous TID with meals metroNIDAZOLE (FLAGYL) tablet 500 mg 500 mg oral TID miconazole 2 % powder topical BID sodium chloride 0.9% flush 0.5-20 mL 0.5-20 mL intra-catheter Q8H ERICK spironolactone (ALDACTONE) tablet 50 mg 50 mg oral BID DIURETIC thiamine (VITAMIN B-1) tablet 50 mg 50 mg oral Daily CONTINUOUS MEDICATIONS: Current Facility-Administered Medications Medication Dose Route Frequency Last Admin PRN MEDICATIONS: PRN Medications Medication Dose Route Frequency Last Admin acetaminophen (TYLENOL) tablet 650 mg 650 mg oral Q4H PRN sodium chloride 0.9% flush 0.5-20 mL 0.5-20 mL intra-catheter PRN And Carrier Fluids for Secondary Infusion - 0.9% Sodium Chloride 30 mL intravenous PRN 30 mL at 04/22/23 2054 Carrier Fluids for Secondary Infusion - 0.9% Sodium Chloride 30 mL intravenous PRN dextrose (GLUTOSE) 40 % gel 15 g 15 g oral Q15 Min PRN 15 g at 04/22/23 1155 Or dextrose (D10W) 10% bolus 250 mL 250 mL intravenous Q15 Min PRN glucagon injection 1 mg 1 mg intramuscular Q30 Min PRN HYDROmorphone (DILAUDID) injection 0.5 mg 0.5 mg intravenous Q4H PRN 0.5 mg at 04/18/23 1818 ipratropium-albuteroL (DUO-NEB) 0.5-2.5 mg/3 mL nebulizer solution 3 mL 3 mL nebulization Q4H PRN (RT) 3 mL at 04/22/23 0305 ondansetron ODT (ZOFRAN-ODT) disintegrating tablet 4 mg 4 mg oral Q6H PRN Or ondansetron (ZOFRAN) injection 4 mg 4 mg intravenous Q6H PRN 4 mg at 04/22/23 0730 sodium chloride (OCEAN) 0.65 % nasal spray 1 spray 1 spray each nostril Q2H PRN sodium chloride 0.9% flush 5-20 mL 5-20 mL intra-catheter PRN sodium chloride 0.9% flush 5-20 mL 5-20 mL intra-catheter PRN My review of labs, imaging, notes and other tests is significant for Recent Labs Lab Units 04/23/23 0923 04/22/23 0625 04/21/23 1054 WBC K/cumm 16.5* 17.6* 21.0* HEMOGLOBIN g/dL 7.8* 7.9* 8.5* HEMATOCRIT % 25.4* 25.8* 27.8* PLATELETS K/cumm 461* 516* 528* . Recent Labs Lab Units 04/22/23 1922 04/22/23 1538 04/22/23 1307 04/22/23 0735 04/22/23 0625 04/21/23 1556 04/21/23 1054 04/20/23 0727 04/20/23 0708 SODIUM mmol/L -- -- -- -- 144 -- 141 -- 139 POTASSIUM PLASMA mmol/L -- -- -- -- 3.5 -- 3.6 -- 3.4 CHLORIDE mmol/L -- -- -- -- 107 -- 107 -- 107 CO2 mmol/L -- -- -- -- 28 -- 29 -- 28 CREATININE mg/dL -- -- -- -- 1.40* -- 1.40* -- 1.50* GLUCOSE mg/dL -- -- -- -- 71 -- 80 -- 89 POC GLUCOSE MONITOR mg/dL 123 87 87 < > -- < > -- < > -- CALCIUM mg/dL -- -- -- -- 8.3* -- 8.2* -- 7.8* ALBUMIN g/dL -- -- -- -- 1.9* -- 1.3* -- 1.3* PHOSPHORUS PLASMA mg/dL -- -- -- -- 3.2 -- 3.2 -- 3.4 < > = values in this interval not displayed. .No lab exists for component: COLORUA, CHARACTERUA, SPECGRAVUA, PHUA, PROTEINUA, BLOODUA, LEUKOCYTEUA, NITRITEUA, GLUCOSEUA, KETONEUA, BILIRUBINUA, UROBILINUA, WBCUA, RBCUA, EPITHUA, MUCUSUA, CASTUA,CRYSTALUA, BACTERIAUA, YEASTUA, TRICHUA NM GI Bleed Study EXAM DESCRIPTION: CA GI BLEED STUDY RADIOPHARMACEUTICAL: 22 mCi Tc-99m in vitro labeled autologous red blood cells via a right arm PICC line IV site REASON FOR STUDY: GI bleed. Shortness of breath and cough for 2 weeks. Nausea and vomiting. Report of bright-red, jelly like loose stool last night. Hemoglobin 7.9. TECHNIQUE: Sequential anterior scintigrams of the abdomen were obtained after radiopharmaceutical administration. COMPARISON: None available FINDINGS: No abnormal foci of labeled red blood cell extravasation are seen. IMPRESSION: No evidence for active gastro-intestinal bleeding. Consider further evaluation with abdominopelvic CT as clinically appropriate. THIS IS AN ELECTRONICALLY VERIFIED FINAL REPORT 04/23/2023 9:42 AM - Electronically signed by Primo Mccarthy M.D. T: Report ID: [id number] Reading Location: [place] [id number] Assessment and Plan Active Problems: Acute diastolic congestive heart failure (CMS/HCC) (HCC) Type II diabetes mellitus with foot ulcer (HCC) Hypertension Acute respiratory failure with hypoxia (CMS/HCC) (HCC) Diarrhea Acute kidney failure (HCC) Elevated troponin Osteomyelitis (HCC) Wounds, multiple Resolved Problems: No resolved hospital problems. BOBBY on CKD in the setting of significant volume overload/pulmonary edema, unclear whether has obstructive uropathy as well, will check a postvoid residual. Does appear quite volume overloaded and will initiate IV furosemide. Obtaining a urinalysis with microscopy as well as a spot urine protein to c reatinine ratio as albumin is 1.8, likely has significant proteinuria. May need to order autoimmuneserology if active UA sediment. Echocardiogram is pending, previous echo with adequate EF and mild diastolic dysfunction. Obtaining a renal ultrasound as well. No acute need for dialysis and hopefully to respond to diuretics. Does have significant leukocytosis may have underlying infection, blood cultures pending, initiated on empiric antibiotics as well. 04/16/2023 Denies any urinary symptoms. Continue furosemide 80 mg IV b.i.d.. Has sub nephrotic proteinuria was1.8 g per g as per a spot sample. Continues to have significantly high leukocytosis. On antibiotics. Urine output noted, probably incomplete. Anemia. Will check iron profile, B12 and folate. Monitor urine output accurately. 2D echo is pending. 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 Noted vascular surgery recommendations regarding a rightabove-knee amputation which the patient declines. 04/17 Serum creatinine down to 2.1 today. Continue diuretics. Serum albumin 1.3. Multifactorial hypoalbuminemia. Non nephrotic range albuminuria previously unlikely primarily secondary to chronic inflammation. Reported diabetic retinopathy with potential need for intervention. Would hold off on prophylactic 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 for now in the setting of hypoalbuminemia. Plans are for PICC line with prolonged antibiotics for attempted limb salvage. Prognosis is extremely guarded. Started on folate and ironreplacement and will add vitamin-D replacement as well given deficiency. 04/18 Creatinine is improving. Down to 1.80. K 3.7, UOP 5000 ml yesterday. Improved creatinine with diuresis. BP 147/77 but variable and lower at times. 2 D Echo with normal EF but with diastolic dysfunction. Likely diabetic kidney disease in the setting of longstanding diabetes as well as diabetic retinopathy. Continue diuresis with furosemide at current dose of 80 mg IV b.i.d.. He is diuresing well. On antibiotics as per primary team/ID/vascular for the diabetic foot infection. She does not have a good appetite and this may be due to her ongoing infection. Likely not related to diminished renal function. Avoid hypotension and nephrotoxins. 04/19/23 Urine output 4-5 0 mL yesterday. Blood pressure 143/78 mmHg. Potassium 3.6, creatinine 1.70 (improved from 1.80 yesterday). Albumin is 1.3. On furosemide 80 mg IV q.12. Adding spironolactone 25 mg p.o. b.i.d.. Will try convert to oral furosemide in the near future. Significant hypoalbuminemia, likely effect of long-term malnutrition, chronic inflammation/infection, proteinuria. Improving nutrition will help but may not be possible without complete treatment of the infection. Monitor electrolytes and adjust spironolactone accordingly. 04/20/2023 Impressive diuresis with a combination of intravenous furosemide and oral spironolactone. Made 6.4 L of urine yesterday. Creatinine continues to decline and is down to 1.50 today. Blood pressure is reasonable at 139/76 mmHg. No hypotension at this time. Will continue current regimen with intravenous furosemide and oral spironolactone and hopefully convert to oral furosemide in the next few days. 04/21/2023 Urine output of 6850 mL yesterday. Blood pressures adequately controlled. Labs from today are stillpending. Continues to need 4 L of oxygen via nasal cannula. Serum albumin is exceedingly low at 1.3. Likely multifactorial including malnutrition, chronic infection, albuminuria contributing to the hy poalbuminemia. CXR continues to show moderate to severe bilateral airspace opacities have increasedwhen compared to 04/19/2023. Will give her a few doses of albumin in the setting of significant hypoalbuminemia. Will need improvement in nutrition, treatment of infection, for the albumin levels to improve. Continue current dose of intravenous furosemide with oral spironolactone since she is achieving significant diuresis with his combination. Chest x-ray continued to show moderate to severe bilateral airspace opacities and hence will continue diuresis. Pulmonary is on board. 04/22 Serum creatinine stable at 1.4, receiving temporary albumin infusions given severe hypoalbuminemia.Continue diuretics. Potassium 3.5 and mildly hypertensive will increase spironolactone to 50 mg b.i.d.. Chest x-ray slightly improved. Will increase furosemide to t.i.d. for now 04/23 Chemistry panel pending this morning, good urine output with adjustment in diuretics yesterday and will continue for now as remaining hemodynamically stable. Await nuclear study and continues on antibiotics. Thank you. Golden Kidd MD [facility] Nephrology and Hypertension Office: [phone] * Darell Paniagua MD - 04/23/2023 5:59 AM CDT Progress Note Patient: Leeroy Canales ( - 1990) is a 32 y.o. female. Visit Date: 04/15/2023 Chief Complaint Patient presents with Shortness of Breath History of Present Illness: The patient is pleasant 32-year-old female who is bed-bound. 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 She is been taking care of by her mom and her sister. She does have history of diabetes. She does not smoke. She presented the emergency room complaining of progressive shortness of breath and cough for the past week or 2. Patient also was having trouble with a wound to her right foot and she is been having nausea. Her initial lab work showed creatinine 2 point 7, alk-phos 381 and albumin 1.8, ABGs showed pH 7.40, pCO2 36 and PO2 49 on room air, her WBC was [address]. Urinalysis showed UTI. Chest x-ray showed Findings are suggestive of pulmonary edema. Her V/Q scan was negative, her D-dimer was elevated. Patient was started on oxygen 4 liter/minute. She does not use oxygenat home or inhaler. She was admitted to the hospital and consultation was requested for further evaluation and management. Upon evaluating the patient, her attitude was depressed or flat. She does report slight postnasal drainage. She does report PND and orthopnea. She denies any history of hemoptysis, epistaxis, hematemesis, melena, hematochezia, diarrhea but constipation. She denies any history syncope or seizure activity. She denies history of fever or chills. She denies any contact with sick people or exposure toTB. She is up-to-date with COVID-19 vaccine. She lives in [place], [place]. She does havea cat at home who does not sleep in her bed. Patient does not ambulate. She was started on cefepime, daptomycin for treatment of possible osteomyelitis. 04/16 -Patient was seen and examined. Lab data were reviewed. Chest x-ray was reviewed by me. medication list was reviewed and adjusted as necessary. Patient is hemodynamically stable. Patient is afebrile.No event overnight. Questions by the patient about the care, plan, medication and possible side effects/ complication of treatment/ medication/ procedures were discussed with patient/ caring agents/ family in details to their satisfaction and understanding. Patient case discussed with the nurse caring for the patient. Patient is doing fair. Patient is feeling okay. She slept okay overnight. Her fluid balance was-400mL. No bowel movement was recorded. She is oxygenating adequately on 4 liter/minute of oxygen. 04/17 -Patient was seen and examined. Lab data were reviewed. Chest x-ray was reviewed by me. medication list was reviewed and adjusted as necessary. Patient is hemodynamically stable. Patient is afebrile.No event overnight. Questions by the patient about the care, plan, medication and possible side effects/ complication of treatment/ medication/ procedures were discussed with patient/ caring agents/ family in details to their satisfaction and understanding. Patient case discussed with the nurse caring for the patient. Patient is doing fair. Patient is feeling better. She is breathing easier. She slept okay overnight. Her oxygenation is adequate on 4 liter[place] [address], albumin 1.3, fluid balance was-1 L. She did have bowel movement overnight. 04/18 -Patient was seen and examined. Lab data were reviewed. Chest x-ray was reviewed by me. medication list was reviewed and adjusted as necessary. Patient is hemodynamically stable. Patient is afebrile.No event overnight. Questions by the patient about the care, plan, medication and possible side effects/ complication of treatment/ medication/ procedures were discussed with patient/ caring agents/ family in details to their satisfaction and understanding. Patient case discussed with the nurse caring for the patient. Patient is doing fair. Patient is unchanged. She slept very good overnight. She is oxygenating adequately on 2-4 liter/minute of oxygen. Her fluid balance was - 3 L. She did have bowel movement overnight. Albumin [place] 1.3[place] [address]. 04/19 I saw the patient this morning and she was lying in bed and kept her head covered for most of the conversation. She reports her breathing is significantly improved. She has a minimal cough and deniesany sputum production or wheezing. She is afebrile and remains on 4 L of supplemental oxygen with saturations in the mid 90s. Labs are pending this morning but she has had continued improvement in renal function with significant diuresis 04/21 -Patient was seen and examined. Lab data were reviewed. Chest x-ray was reviewed by me. medication list was reviewed and adjusted as necessary. Patient is hemodynamically stable. Patient is afebrile.No event overnight. Questions by the patient about the care, plan, medication and possible side effects/ complication of treatment/ medication/ procedures were discussed with patient/ caring agents/ family in details to their satisfaction and understanding. Patient case discussed with the nurse caring for the patient. Patient is doing fair. Patient is feeling okay. She is oxygenating adequately on 4 liter/minute of oxygen. [place] [address], albumin is 1.3. Her fluid balance was-5400 mL. She did have bowel movement overnight. 04/22 -Patient was seen and examined. Lab data were reviewed. Chest x-ray was reviewed by me. medication list was reviewed and adjusted as necessary. Patient is hemodynamically stable. Patient is afebrile.No event overnight. Questions by the patient about the care, plan, medication and possible side effects/ complication of treatment/ medication/ procedures were discussed with patient/ caring agents/ family in details to their satisfaction and understanding. Patient case discussed with the nurse caring for the patient. Patient is doing fair. Patient is feeling okay. She did sit on side of bed yesterday. She is oxygenating adequately on 4 liter/minute of oxygen. She does not have oxygen at home. Her fluid balance was-2400 mL. [place] [address]. 04/23 -Patient was seen and examined. Lab data were reviewed. Chest x-ray was reviewed by me. medication list was reviewed and adjusted as necessary. Patient is hemodynamically stable. Patient is afebrile.No event overnight. Questions by the patient about the care, plan, medication and possible side effects/ complication of treatment/ medication/ procedures were discussed with patient/ caring agents/ family in details to their satisfaction and understanding. Patient case discussed with the nurse caring for the patient. Patient is doing fair. Patient is feeling okay. She did not sleep very well overnight. She was having a lot of nausea and vomiting overnight. Her fluid balance was-3 L. she did have bowel movement overnight. Her oxygenation is adequate on 4 liter/minute of oxygen. Past Medical History: Past Medical History: Diagnosis Date CHF (congestive heart failure) ([facility]/HCC) (HCC) CKD (chronic kidney disease) Diabetes mellitus (HCC) Hx of AKA (above knee amputation) (CMS/HCC) (HCC) Left Hypertension Surgical History: Past Surgical History: Procedure Laterality Date ABOVE KNEE LEG AMPUTATION Left Current Medications: Current Facility-Administered Medications Medication Dose Route Frequency Provider Last Rate Last Admin acetaminophen (TYLENOL) tablet 650 mg 650 mg oral Q4H PRN Amilcar Hancock MD albumin 25 % bottle 25 g 25 g intravenous TID Dallas Peña MD 25 g at 04/22/23 204 buPROPion (WELLBUTRIN) tablet 50 mg 50 mg oral BID Hien Rabago MD 50 mg at 04/21/23 2226 sodium chloride 0.9% flush 0.5-20 mL 0.5-20 mL intra-catheter Q8H [facility] Amilcar Hancock MD 10 mL at04/22/23 1520 And sodium chloride 0.9% flush 0.5-20 mL 0.5-20 mL intra-catheter PRN Amilcar Hancock MD And Carrier Fluids for Secondary Infusion - 0.9% Sodium Chloride 30 mL intravenous PRN Amilcar Hancock MD 30 mL at 04/22/23 205 Carrier Fluids for Secondary Infusion - 0.9% Sodium Chloride 30 mL intravenous PRN Hien Rabago MD cefTRIAXone (ROCEPHIN) 2,000 mg/20 mL in sterile water (premix) 2,000 mg 2,000 mg intravenous Q24H [facility] Dante Stubbs MD 2,000 mg at 04/22/23 0916 DAPTOmycin (CUBICIN) 50 mg/mL sodium chloride 0.9% 700 mg 700 mg intravenous Q24H Amilcar Hancock MD 700 mg at 04/22/23 1743 dextrose (GLUTOSE) 40 % gel 15 g 15 g oral Q15 Min PRN Amilcar Hancock MD 15 g at 04/22/23 1155 Or dextrose (D10W) 10% bolus 250 mL 250 mL intravenous Q15 Min PRN Amilcar Hancock MD ergocalciferol (VITAMIN D) capsule 50,000 Units 50,000 Units oral Weekly Golden Kidd MD 50,000 Units at 04/17/23 1437 folic acid (FOLVITE) tablet 1 mg 1 mg oral Daily Hien Rabago MD 1 mg at 04/22/23 0916 furosemide (LASIX) 10 mg/mL injection 80 mg 80 mg intravenous Q8H [facility] Golden Kidd MD 80 mg at04/22/232041 glucagon injection 1 mg 1 mg intramuscular Q30 Min PRN Amilcar Hancock MD [Held by Provider] heparin 5,000 unit/mL injection 7,500 Units 7,500 Units subcutaneous Q8H [facility] Amilcar Hancock MD 7,500 Units at 04/22/23 1520 HYDROmorphone (DILAUDID) injection 0.5 mg 0.5 mg intravenous Q4H PRN Hien Rabago MD 0.5 mgat 04/18/23 1818 insulin lispro (HumaLOG, ADMELOG) 100 unit/mL injection 0-4 Units 0-4 Units subcutaneous Nightly Amilcar Hancock MD insulin lispro (HumaLOG, ADMELOG) 100 unit/mL injection 0-5 Units 0-5 Units subcutaneous TID with meals Amilcar Hancock MD ipratropium-albuteroL (DUO-NEB) 0.5-2.5 mg/3 mL nebulizer solution 3 mL 3 mL nebulization Q4H PRN (RT) Darell Paniagua MD 3 mL at 04/22/23 0305 metroNIDAZOLE (FLAGYL) tablet 500 mg 500 mg oral TID Dante Stubbs MD 500 mg at 04/22/232042 miconazole 2 % powder topical BID Willie Castro MD Given at 04/22/23 205 ondansetron ODT (ZOFRAN-ODT) disintegrating tablet 4 mg 4 mg oral Q6H PRN Amilcar Hancock MD Or ondansetron (ZOFRAN) injection 4 mg 4 mg intravenous Q6H PRN Amilcar Hancock MD 4 mg at 04/22/23 0730 sodium chloride (OCEAN) 0.65 % nasal spray 1 spray 1 spray each nostril Q2H PRN Darell Paniagua MD sodium chloride 0.9% flush 5-20 mL 5-20 mL intra-catheter PRN Hien Rabago MD sodium chloride 0.9% flush 5-20 mL 5-20 mL intra-catheter PRN Dante Stubbs MD spironolactone (ALDACTONE) tablet 50 mg 50 mg oral BID DIURETIC Golden Kidd MD 50 mg at 04/22/23 1520 thiamine (VITAMIN B-1) tablet 50 mg 50 mg oral Daily Hien Rabago MD 50 mg at 04/22/23 0916 Allergies: No Known Allergies Family History: History reviewed. No pertinent family history. Social History: Social History Tobacco Use Smoking status: Never Smokeless tobacco: Never Substance and Sexual Activity Drug use: Never Sexual activity: None Alcohol Use: Not on file Review of Systems: Review of Systems Constitutional: Positive for fatigue. Negative for appetite change, chills and fever. HENT: Negative for congestion, ear pain, mouth sores, tinnitus and voice change. Eyes: Negative for photophobia and pain. Respiratory: Positive for cough and shortness of breath. Negative for choking and stridor. Cardiovascular: Positive for leg swelling. Negative for chest pain and palpitations. Gastrointestinal: Negative for abdominal distention, abdominal pain and nausea. Endocrine: Negative for cold intolerance and polyphagia. Genitourinary: Negative for dysuria and hematuria. Musculoskeletal: Positive for gait problem. Negative for joint swelling. Skin: Negative for pallor and rash. Allergic/Immunologic: Negative for immunocompromised state. Neurological: Positive for weakness. Negative for seizures and facial asymmetry. Hematological: Negative for adenopathy. Does not bruise/bleed easily. Psychiatric/Behavioral: Negative for agitation and confusion. Physical Exam: Vitals: 04/22/23 2316 04/23/23 0210 04/23/23 0211 04/23/23 0315 BP: 159/79 152/81 161/82 BP Location: Left arm Left arm Left arm Patient Position: HOB 30 degrees HOB 30 degrees HOB 30 degrees Pulse: 93 102 95 Resp: 18 20 18 Temp: 37.1 ??C (98.7 ??F) 37.8 ??C (100.1 ??F) 37.5 ??C (99.5 ??F) TempSrc: Oral Oral Oral SpO2: 94% (!) 57% 93% 94% Weight: Height: Physical Exam Constitutional: General: She is not in acute distress. Appearance: She is well-developed. She is morbidly obese. She is ill-appearing. She is not diaphoretic. HENT: Head: Normocephalic and atraumatic. Neck: Thyroid: No thyromegaly. Cardiovascular: Rate and Rhythm: Normal rate and regular rhythm. Heart sounds: No murmur heard. No gallop. Pulmonary: Effort: Pulmonary effort is normal. No accessory muscle usage or respiratory distress. Breath sounds: No stridor. Examination of the right-upper field reveals decreased breath sounds. Examination of the left-upper field reveals decreased breath sounds. Examination of the right-lower field reveals rales. Examination of the left-lower field reveals rales. Decreased breath sounds and rales present. Chest: Chest wall: No tenderness. Abdominal: General: Bowel sounds are normal. There is no distension. Palpations: Abdomen is soft. Tenderness: There is no abdominal tenderness. Musculoskeletal: General: No tenderness or deformity. Normal range of motion. Cervical back: Normal range of motion and neck supple. Right lower leg: Edema present. Left lower leg: Edema present. Comments: Left BKA Lymphadenopathy: Cervical: No cervical adenopathy. Skin: General: Skin is warm and dry. Capillary Refill: Capillary refill takes less than 2 seconds. Findings: Lesion and rash present. No erythema. Neurological: Mental Status: She is alert and oriented to person, place, and time. Cranial Nerves: No cranial nerve deficit. Motor: Weakness present. Coordination: Coordination normal. Psychiatric: Mood and Affect: Mood is depressed. Behavior: Behavior normal. Data Reviewed Recent Results (from the past 24 hour(s)) Comprehensive metabolic panel Collection Time: 04/22/23 6:25 AM Result Value Ref Range Sodium 144 135 - 145 mmol/L Potassium, pl 3.5 3.3 - 4.9 mmol/L Chloride 107 97 - 110 mmol/L CO2 28 22 - 32 mmol/L Anion gap 9 2 - 15 mmol/L BUN 19 8 - 25 mg/dL Creatinine 1.40 (H) 0.60 - 1.10 mg/dL Glucose 71 70 - 199 mg/dL Calcium 8.3 (L) 8.5 - 10.3 mg/dL Bilirubin, total 0.3 0.1 - 1.2 mg/dL Protein, pl 5.9 (L) 6.5 - 8.5 g/dL Albumin 1.9 (L) 3.5 - 5.0 g/dL Alk phos 243 (H) 40 - 130 Units/L ALT 12 7 - 45 Units/L AST 12 10 - 45 Units/L CBC with auto differential Collection Time: 04/22/23 6:25 AM Result Value Ref Range WBC 17.6 (H) 3.8 - 9.9 K/cumm Hgb 7.9 (L) 11.9 - 15.5 g/dL Hct 25.8 (L) 35.6 - 45.5 % Plt 516 (H) 150 - 400 K/cumm MPV 8.8 (L) 9.1 - 12.3 fL RBC 2.99 (L) 3.90 - 5.20 M/cumm MCV 86.3 81.3 - 96.4 fL MCH 26.4 (L) 27.1 - 33.3 pg MCHC 30.6 (L) 32.3 - 35.7 g/dL RDW CV 17.4 (H) 11.1 - 14.9 % RDW SD 55.0 (H) 35.7 - 48.1 fL NRBC abs 0.00 0.00 - 0.01 K/cumm Magnesium Collection Time: 04/22/23 6:25 AM Result Value Ref Range Magnesium 1.6 1.4 - 2.5 mg/dL Phosphorus Collection Time: 04/22/23 6:25 AM Result Value Ref Range Phosphorus, pl 3.2 2.3 - 4.5 mg/dL CRP (acute phase) Collection Time: 04/22/23 6:25 AM Result Value Ref Range CRP 92.6 (H) <=10.0 mg/L Differential, auto Collection Time: 04/22/23 6:25 AM Result Value Ref Range Neutrophil abs 14.0 (H) 1.7 - 6.5 K/cumm Imm gran abs 0.2 (H) 0.0 - 0.1 K/cumm Lymphocyte abs 1.7 0.8 - 3.3 K/cumm Monocyte abs 1.3 (H) 0.2 - 0.8 K/cumm Eosinophil abs 0.4 0.0 - 0.5 K/cumm Basophil abs 0.1 0.0 - 0.1 K/cumm Neutrophil pct 79.2 % Imm gran pct 1.1 % Lymphocyte pct 9.9 % Monocyte pct 7.1 % Eosinophil pct 2.3 % Basophil pct 0.4 % eGFR Collection Time: 04/22/23 6:25 AM Result Value Ref Range eGFR 52 mL/min/1.73 m2 Pro B-type natriuretic peptide Collection Time: 04/22/23 6:25 AM Result Value Ref Range NT-proBNP 10,555 (H) <=300 pg/mL POCT glucose Collection Time: 04/22/23 7:35 AM Result Value Ref Range Glucose, POC 70 70 - 199 mg/dL Glucose comment 1 Use This Result Glucose comment 2 RN/MD Notified POCT glucose Collection Time: 04/22/23 11:47 AM Result Value Ref Range Glucose, POC 64 (L) 70 - 199 mg/dL Glucose comment 1 Use This Result Glucose comment 2 RN/MD Notified POCT glucose Collection Time: 04/22/23 1:07 PM Result Value Ref Range Glucose, POC 87 70 - 199 mg/dL POCT glucose Collection Time: 04/22/23 3:38 PM Result Value Ref Range Glucose, POC 87 70 - 199 mg/dL Glucose comment 1 Use This Result Glucose comment 2 RN/MD Notified Guaiac occult blood, fecal, non-neoplasm Collection Time: 04/22/23 6:00 PM Result Value Ref Range Guaiac occult blood, fecal Negative Negative POCT glucose Collection Time: 04/22/23 7:22 PM Result Value Ref Range Glucose, POC 123 70 - 199 mg/dL Glucose comment 1 Use This Result Glucose comment 2 RN/MD Notified hCG, blood, quantitative Collection Time: 04/22/23 8:07 PM Result Value Ref Range hCG, quant 1.5 0.0 - 5.0 IUnits/L Images: NM Pulmonary Perfusion Imaging Result Date: 04/15/2023 Narrative: EXAM DESCRIPTION: NM PULMONARY PERFUSION IMAGING RADIOPHARMACEUTICAL: 4 mCi Tc-99m MAA via a right antecubital vein IV site REASON FOR STUDY: Chest pain. Shortness of breath and cough. TECHNIQUE: Limited multi-planar perfusion scintigrams were obtained. COMPARISON: Chest radiograph 04/15/2023 FINDINGS: Perfusion images obtained in the anterior, anterior oblique, and lateral projectionswere obtained. The posterior and posterior oblique projections were not obtained. There is mild enlargement of the cardiomediastinal silhouette. There are no large segmental perfusion defects on the provided images. IMPRESSION: 1. Limited perfusion lung scan with a low probability for pulmonary embolism. THIS IS AN ELECTRONICALLY VERIFIED FINAL REPORT 04/15/2023 4:31 PM - Electronically signed by Amor MAURER T: Report ID: [id number] Reading Location: [id number] XR Foot Right 3 or More Views Result Date: 04/15/2023 Narrative: EXAM DESCRIPTION: XR FOOT RIGHT 3 OR MORE VIEWS REASON FOR STUDY: Wound infection TECHNIQUE: 3 radiographic view(s) of the right foot . COMPARISON: 02/20/2023 FINDINGS: Plantar soft tissueulceration of the hindfoot with underlying soft tissue gas. There is diffuse soft tissue swelling of the foot, particularly involving the dorsal aspect of the mid to forefoot. No radiopaque foreign bodies. There is suspected mild osseous cortical erosion involving the plantar aspect of the calcaneus when compared to the prior exam. No acute fracture or dislocation. IMPRESSION: Prominent soft tissue ulceration of the plantar aspect of the hindfoot with underlying soft tissue gas. Suspected osseous cortical erosion involving the plantar aspect of the calcaneus, concerning for acute osteomyelitis. THIS IS AN ELECTRONICALLY VERIFIED FINAL REPORT 04/15/2023 2:51 PM - Electronically signed by Rio PHILLIPS T: Report ID: [id number] Reading Location: [id number] XR Chest 1 Vw Portable Result Date: 04/15/2023 Narrative: EXAM DESCRIPTION: XR CHEST 1 VIEW REASON FOR STUDY: Shortness of breath Pt with sob, weakness x 2-3 days Hx lg necrotic wnd on rt foot that she is being treated for Pt is lt leg amputee above the knee TECHNIQUE: 1 radiographic view(s) of the chest. COMPARISON: None FINDINGS: LUNGS: Diffuse bilateral interstitial opacities. No focal consolidation. No pneumothorax. No large pleural effusion. HEART/MEDIASTINUM: Cardiac silhouette is enlarged.. Mediastinal and hilar contours appear normal. LINES/TUBES: None. BONES: No acute osseous abnormality. IMPRESSION: Findings are suggestive of pulmonary edema. THIS IS AN ELECTRONICALLY VERIFIED FINAL REPORT 04/15/2023 2:43 PM - Electronically signed by Rio Smith M.D. KR T: Report ID: [id number] Reading Location: [id number] Assessment and Plan: Assessment Acute hypoxemic respiratory failure secondary to fluid overload/pulmonary edema and possible sepsis. No history of smoking. Bed bound. Right BKA. Renal insufficiency. Plan Oxygen keep ox saturation more than 92%. Bronchodilators around the clock and as needed with albuterol and Atrovent. Head of bed elevation and aspiration precaution. Diuresis, monitor O2 retires and fluid balance, monitor kidney function. Incentive spirometry and physical therapy. Out of bed to the chair if possible. Pulmonary toilet and pep valve. Check blood culture, sputum culture, ESR, CRP, BNP, procalcitonin and MRSA. Saline nasal spray twice daily. Patient would need outpatient split sleep study. Condition is guarded. Will monitor patient closely. Continue antibiotics, daptomycin and cefepime. Check 2D echocardiogram. 04/16 -continue daptomycin, cefepime, day 2., patient would need 2D echocardiogram to evaluate her cardiomegaly and fluid overload on chest x-ray. Continue monitoring electrolytes, kidney function, input and output. Continue bronchodilators, oxygen supplement keep ox saturation more than 92%, head of bedelevation, aspiration precaution, pep valve, pulmonary toilet, DVT and stress ulcer prophylaxis, continue wound care and continue monitor patient closely. Patient condition is guarded. 04/17 -daptomycin, cefepime(was switched to ceftriaxone and Flagyl), day 3., 2D echocardiogram was reviewed. Continue nutritional support, head of bed elevation, aspiration precaution, pulmonary toilet, DVT and stress ulcer prophylaxis, pep valve, bronchodilators, oxygen supplement keep ox saturation more than 92%, wean oxygen as tolerated, continue wound care, continue diuresis, monitor electrolytes and fluid balance, patient condition continued to be guarded. 04/18 -antibiotics, ceftriaxone, Flagyl and daptomycin, day number 4 continue weaning oxygen keep ox saturation more than 92%, head of bed elevation, aspiration precaution, bronchodilators, incentive spirometry, physical therapy, pep valve, DVT and stress ulcer prophylaxis, pulmonary toilet, continue wound care, diuresis, monitor electrolytes and fluid balance, continue monitor patient closely. She would need outpatient split sleep study. 04/19 - again respiratory failure seems to be likely related to volume overload and acute renal insufficiency. This continues to improve with diuresis. Awaiting labs from today but will continue to monitorrenal function and electrolytes. She continues on antibiotics for right lower extremity osteomyelitis. Low suspicion for eosinophilic pneumonia/pneumonitis from daptomycin. Wean oxygen as tolerated and recommend sleep study as an outpatient. Pulmonary will follow peripherally over the weekend. The patient will be seen by Dr. Paniagua on Friday. Please call with any further questions. 04/21 -patient continued to be on oxygen 4 liter/minute, she does not have oxygen at home. Her albumin isonly 1.3. Continue antibiotics, daptomycin, Rocephin and Flagyl day number 6, continue nutritional support, high-protein diet, diuresis, monitor electrolytes and fluid balance, head of bed elevation,aspiration precaution, incentive spirometry, physical therapy, pulmonary toilet, out of bed to the chair if possible, pulmonary toilet, DVT and stress ulcer prophylaxis, continue weaning oxygen keep ox saturation more than 92%, continue monitor patient closely. Condition is very guarded. 04/22 -continue oxygen supplement, wean as tolerated, head of bed elevation, aspiration precaution, incentive spirometry, physical therapy, pulmonary toilet, sitting on side of bed, out of bed to the chairpossible, daptomycin Rocephin, Flagyl, day 7., continue DVT and stress ulcer prophylaxis, continue diuresis, monitor electrolytes and fluid balance, continue monitor patient closely. Continue bronchodilators Patient condition is guarded. 04/23 -she is feeling very sick. She is having nausea and vomiting. She is on daptomycin, Flagyl and Rocephin, day 8., continue head of bed elevation, aspiration precaution, incentive spirometry, physical therapy, sitting on side of bed, pulmonary toilet, DVT and stress ulcer prophylaxis, pep valve, continue diuresis, monitor electrolytes and fluid balance, continue nutritional support, continue bronchodilators, continue monitor patient closely. Patient condition is guarded. Rendering Provider & Department: Darell Paniagua MD THIS NOTE WAS CREATED IN PART WITH THE ASSISTANCE OF [employer]. ASSISTANT PRODUCER VARIANCES MAY OCCUR. For patients or family members viewing this note through [employer]: This note was written as a communication tool between healthcare providers and may contain technical language, terminology and abbreviations that is difficult to interpret without advanced medical training. If you have questions or concerns regarding what is written in this note, please request to speak with the healthcare provider taking care of you or your family member. * Shaneka Saleh MSW - 04/22/2023 5:27 PM CDT Attempted to see for mental health assessment. Pt has visitors < RN requested to try again tomorrow. Shaneka [facility] * Jeanna Amin COTA - 04/22/2023 1:33 PM CDT Occupational Therapy 04/22/23 1333 General Session Type Treatment OT Received On 04/22/23 Safe Environment Arm band checked;Patient found in supine Precautions Precautions Bed/Chair Alarm;Fall risk Weight Bearing Restrictions Yes RLE Weight Bearing NWB Precaution Comments assist of 2-3 for safety, prevlon boot to R LE Pain Assessment Pain Assessment No/denies pain Static Sitting Balance Static Sitting-Balance Support Bilateral upper extremity supported Static Sitting-Sitting Surface Bed Static Sitting-Level of Assistance Contact guard;Minimum assistance Bed Mobility 1 Bed Mobility From 1 Supine Bed Mobility Type 1 To and from Bed Mobility to 1 Edge of bed Level of Assistance 1 Maximum Assist Bed Mobility Comments 1 x 3 assist Bed Mobility 2 Bed Mobility From 2 Supine Bed Mobility Type 2 To and from Bed Mobility to 2 Rolling left Level of Assistance 2 Maximum Assist Activity Tolerance Endurance Tolerates 10 - 20 min activity with multiple rests Safe Environment End of Therapy Session Safe Environment End of Therapy Session Patient left supine in bed;Call light within reach;Overbed table within reach;Bed in lowest position with wheels locked;Bed rails up per protocol Assessment Prognosis Fair Problem List Decreased upper extremity strength;Decreased endurance;Decreased balance;Decreased functional mobility;Decreased ADL independence;Decreased IADL independence;Decreased trunk control for functional activities;Decreased frequency/variety of movement;Gait Barriers to Discharge Current Mobility Status;Home environment challenged Plan Plan Continue with current plan Recommendation/Plan OT Recommendation Inpatient Rehab Facility Patient at high risk for Prolonged dependence for self care tasks;Falls;Readmission;Injury due to decreased ability to care for self;Injury due to reduced functional status;Injury due to balance deficits;Injury at home as patient has not returned to prior level of function;Developing impaired skin integrity;Developing secondary complications: poor health management OT Frequency during current admission 5-7x/wk Treatment/Interventions during current admission ADL/IADL retraining;Balance Training;Compensatory technique education;Endurance training;Functional activity;Functional mobility training;Functional transfer training;Parent/caregiver training and education;Strengthening;Therapeutic activity;Therapeutic exercise;Transfer training OT Equipment Recommended Hospital bed (bariatric stephany) Progress during current admission Improving as expected Co-treat with ASIF Weaver for safety * Esthela Carmen PTA - 04/22/2023 1:32 PM CDT Physical Therapy 04/22/23 1332 PT Last Visit Session Type Treatment PT Received On 04/22/23 Safe Environment Arm band checked;Patient found in supine;Session completed bedside Subjective Agreeable to Therapy Subjective Comment agreeable to sit EOB Precautions Precautions Bed/Chair Alarm;Fall risk Weight Bearing Restrictions Yes RLE Weight Bearing NWB Precaution Comments Prevalon boot rt foot Activity Tolerance Endurance Tolerates 10 - 20 min activity with multiple rests Pain Assessment Pain Assessment No/denies pain Static Sitting Balance Static Sitting-Balance Support Bilateral upper extremity supported Static Sitting-Sitting Surface Bed Static Sitting-Level of Assistance Minimum assistance;Contact guard Bed Mobility 1 Bed Mobility From 1 Supine Bed Mobility Type 1 To and from Bed Mobility to 1 Edge of bed Level of Assistance 1 Maximum Assist Bed Mobility Comments 1 x3 assist Bed Mobility 2 Bed Mobility From 2 Supine Bed Mobility Type 2 To and from Bed Mobility to 2 Rolling left Level of Assistance 2 Maximum Assist Bed Mobility Comments 2 of 2 Safe Environment End of Therapy Session Safe Environment End of Therapy Session Patient left supine in bed;Bed alarm in place and activated;Call light within reach;Overbed table within reach;Bed in lowest position with wheels locked;Bed rails up per protocol Recommendation/Plan PT Recommendation/Plan (S) Inpatient Rehab Facility Recommend Inpatient Rehab/Acute Rehab due to Highly motivated to participate in therapy;Not at baseline due to impaired ability to complete ADLs;Impaired ability to complete functional mobility;Likely to return to the community at discharge with support system in place;Requires greater than 25% physical assistance with most mobility tasks;Requires greater than 25% physical assistance with most ADL tasks;Requires multiple therapy disciplines to address functional deficits;Patient and caregiver require specialized skilled training due to new level of function/diagnosis Treatment/Interventions during current admission Balance Training;Bed mobility;Endurance training;Functional transfer training Co-rx with Claudia BOLAND PTA Carol Educated the patient to the role of physical therapy, plan of care, goals of therapy, rationale forprogressing mobility Patient was left with all needs met and equipment intact. Mobility and ADL status posted at bedsideand within medical record. Multi-Disciplinary Problems (from Physical Therapy) Active Problems Problem: Transfers Start Date: 04/22/23 Goal Start Date Expected End Date End Date STG - Patient to transfer to and from sit to supine 04/22/23 05/05/23 -- Goal Details: With Min A +2, and cues. Goal Start Date Expected End Date End Date STG - Patient will perform bed mobility 04/22/23 05/05/23 -- Goal Details: With bed rails, with Min A +1, and cues. NOT MET Problem: Balance Start Date: 04/22/23 Goal Start Date Expected End Date End Date STG - Maintains static sitting balance with upper extremity support 04/22/23 05/05/23 -- Goal Details: For 15 minutes, while sitting on EOB and working on seated ex's and seated daily activities, with supervision of 1, and cues. Pt to progress to seated activities without UE support, andadvance to seated resistive band ex's at bedside. Progressing Problem: PT Misc Start Date: 04/22/23 Goal Start Date Expected End Date End Date PT LTG - Misc 1 04/22/23 05/05/23 -- Goal Details: The Pt will perform Therapeutic AROM ex's for B UE's and B LE's, in supine or in sitting, 1 set of 10 reps, daily, with cues, in pain-free ROM, and with Therapeutic Rest Breaks, as needed. The Pt will progress to strengthening ex's for B UE's, for biceps and triceps, with light-resistance exercise bands, as able. Goal Start Date Expected End Date End Date PT LTG - Misc 2 04/22/23 05/05/23 -- Goal Details: The Pt will advance to bed <-> drop arm cardiac chair sliding board transfers, with Mod A +2, as cedric., with care taken to avoid shearing forces on Pt's buttocks and limited WB'ingthru Pt's R LE, while R foot rests on the floor for sliding board transfer. (Pt may need stephany liftpad in chair before Pt gets up to cardiac chair. However, as Pt has old L AKA, if stephany lift is used , care to be taken). NT Reviewed By Eunice Ferguson RN 04/21/23 0414 Eunice Ferguson RN 04/20/23 0459 * Willie Castro MD - 04/22/2023 11:41 AM CDT General Medicine Daily Progress DOA: 04/15/2023 Subjective The patient was seen and examined at bedside, she is hemodynamically stable AO x3. Patient still does not want amputation, fortunately podiatry can not evaluate the patient's he is we do not have an active service, general surgery was consulted will wait for further recommendations. Interval history: The patient is a 32 year female with past medical history of type 2 diabetes, essential hypertension, CHF with preserved ejection fraction and left AKA was admitted in hospital for acute on chronic CHF exacerbation, she was also found to have an ulcer on the right foot. Id was consulted for antibiotic management they recommended ceftriaxone and daptomycin plus Flagyl currently on day 7. Vascular surgery evaluated the patient they recommended an amputation but patient refused. Podiatryis not actively seen patient this week, general surgery was consulted. Pending of the surgical teamrecommendation was IV patient may need to be transferred to a different facility. Patient also presented with acute hypoxic respiratory failure secondary to pulmonary edema in the context of sepsis, pulmonary was consulted they recommended the patient to be put on bronchodilators and patient also receiving IV Lasix. Patient also presented with BOBBY on CKD this is why nephrology was consulted has been following the case, they determined the patient has significant proteinuria, they recommended to increase Lasix tot.I.d. Past Medical History: Diagnosis Date CHF (congestive heart failure) (CMS/HCC) (HCC) CKD (chronic kidney disease) Diabetes mellitus (HCC) Hx of AKA (above knee amputation) (CMS/HCC) (HCC) Left Hypertension Objective Vitals: 24hr Min/Max: Temp Min: 36.4 ??C (97.6 ??F) Max: 37.6 ??C (99.7 ??F) Pulse Min: 87 Max: 97 BP Min: 136/73 Max: 155/82 Resp Min: 17 Max: 18 SpO2 Min: 92 % Max: 96 % Most Recent : Vitals: 04/22/23 1015 BP: Pulse: 91 Resp: Temp: SpO2: I/O last 2 completed shifts: In: 370 [P.O.:240; I.V.:10; Blood:100; IV Piggyback:20] Out: 2780 [Urine:2780] I/O this shift: In: - Out: 1100 [Urine:1100] Physical Exam: Physical Exam Constitutional: Appearance: She is well-developed. She is obese. She is ill-appearing. She is not diaphoretic. HENT: Head: Normocephalic. Mouth/Throat: Mouth: Mucous membranes are moist. Eyes: Pupils: Pupils are equal, round, and reactive to light. Neck: Thyroid: No thyromegaly. Vascular: No JVD. Cardiovascular: Rate and Rhythm: Normal rate and regular rhythm. Pulmonary: Effort: Pulmonary effort is normal. No tachypnea. Breath sounds: Examination of the right-lower field reveals rales. Examination of the left-lower field reveals rales. Decreased breath sounds and rales present. No wheezing or rhonchi. Chest: Chest wall: No mass. Abdominal: General: Bowel sounds are normal. Palpations: Abdomen is soft. There is no hepatomegaly. Musculoskeletal: General: Normal range of motion. Cervical back: Normal range of motion. Right lower leg: Edema present. Comments: Left AKA Skin: General: Skin is warm. Capillary Refill: Capillary refill takes less than 2 seconds. Coloration: Skin is not pale. Findings: Ecchymosis and erythema present. No rash. Neurological: General: No focal deficit present. Mental Status: She is alert and oriented to person, place, and time. Psychiatric: Mood and Affect: Mood normal. Lab/Radiology/Diagnostic Review: Laboratory review: Chemistry BMP Lab Results Component Value Date GLUCOSE 70 04/22/2023 GLUCOSE 71 04/22/2023 CALCIUM 8.3 (L) 04/22/2023 SODIUM 144 04/22/2023 POTASSIUM 3.5 04/22/2023 CO2 28 04/22/2023 BUNSER 19 04/22/2023 CREATININE 1.40 (H) 04/22/2023 and CBC: Lab Results Component Value Date WBC 17.6 (H) 04/22/2023 RBC 2.99 (L) 04/22/2023 HGB 7.9 (L) 04/22/2023 HCT 25.8 (L) 04/22/2023 MCV 86.3 04/22/2023 MCH 26.4 (L) 04/22/2023 MCHC 30.6 (L) 04/22/2023 RDWCV 17.4 (H) 04/22/2023 RDWSD 55.0 (H) 04/22/2023 MPV 8.8 (L) 04/22/2023 NRBCABS 0.00 04/22/2023 Current Facility-Administered Medications Medication Dose Route Frequency Provider Last Rate Last Admin acetaminophen (TYLENOL) tablet 650 mg 650 mg oral Q4H PRN Amilcar Hancock MD albumin 25 % bottle 25 g 25 g intravenous TID Dallas Peña MD sodium chloride 0.9% flush 0.5-20 mL 0.5-20 mL intra-catheter Q8H Amilcar Vee MD 10 mL at04/21/23 1304 And sodium chloride 0.9% flush 0.5-20 mL 0.5-20 mL intra-catheter PRN Amilcar Hancock MD And Carrier Fluids for Secondary Infusion - 0.9% Sodium Chloride 30 mL intravenous PRN Amilcar Hancock MD cefTRIAXone (ROCEPHIN) 2,000 mg/20 mL in sterile water (premix) 2,000 mg 2,000 mg intravenous Q24H Dante Fitzgerald MD 2,000 mg at 04/21/23 0909 DAPTOmycin (CUBICIN) 50 mg/mL sodium chloride 0.9% 700 mg 700 mg intravenous Q24H Amilcar Hancock MD 700 mg at 04/21/23 1303 dextrose (GLUTOSE) 40 % gel 15 g 15 g oral Q15 Min PRN Amilcar Hancock MD Or dextrose (D10W) 10% bolus 250 mL 250 mL intravenous Q15 Min PRN Amilcar Hancock MD ergocalciferol (VITAMIN D) capsule 50,000 Units 50,000 Units oral Weekly Golden Kidd MD 50,000 Units at 04/17/23 1437 folic acid (FOLVITE) tablet 1 mg 1 mg oral Daily Hien Rabago MD 1 mg at 04/21/23 0908 furosemide (LASIX) 10 mg/mL injection 80 mg 80 mg intravenous BID DIURETIC Amilcar Hancock MD 80 mg at 04/21/23 0908 glucagon injection 1 mg 1 mg intramuscular Q30 Min PRN Amilcar Hancock MD heparin 5,000 unit/mL injection 7,500 Units 7,500 Units subcutaneous Q8H ERICK Amilcar Hancock MD 7,500 Units at 04/21/23 1304 HYDROmorphone (DILAUDID) injection 0.5 mg 0.5 mg intravenous Q4H PRN Hien Rabago MD 0.5 mgat 04/18/23 1818 insulin glargine (LANTUS, SEMGLEE) 100 unit/mL injection 22 Units 0.15 Units/kg subcutaneous Nightly Amilcar Hancock MD 22 Units at 04/19/23 2151 insulin lispro (HumaLOG, ADMELOG) 100 unit/mL injection 0-4 Units 0-4 Units subcutaneous Nightly Amilcar Hancock MD insulin lispro (HumaLOG, ADMELOG) 100 unit/mL injection 0-5 Units 0-5 Units subcutaneous TID with meals Amilcar Hancock MD insulin lispro (HumaLOG, ADMELOG) 100 unit/mL injection 7 Units 0.05 Units/kg subcutaneous TID withmeals Amilcar Hancock MD 7 Units at 04/16/23 1801 ipratropium-albuteroL (DUO-NEB) 0.5-2.5 mg/3 mL nebulizer solution 3 mL 3 mL nebulization Q4H PRN (RT) Darell Paniagua MD metroNIDAZOLE (FLAGYL) tablet 500 mg 500 mg oral TID Dante Stubbs MD 500 mg at 04/21/23 0908 ondansetron ODT (ZOFRAN-ODT) disintegrating tablet 4 mg 4 mg oral Q6H PRN Amilcar Hancock MD Or ondansetron (ZOFRAN) injection 4 mg 4 mg intravenous Q6H PRN Amilcar Hancock MD sodium chloride (OCEAN) 0.65 % nasal spray 1 spray 1 spray each nostril Q2H PRN Darell Paniagua MD sodium chloride 0.9% flush 5-10 mL 5-10 mL intra-catheter Q12H ERICK Hien Rabago MD 10 mL at04/21/23 0920 sodium chloride 0.9% flush 5-20 mL 5-20 mL intra-catheter PRN Hien Rabago MD spironolactone (ALDACTONE) tablet 25 mg 25 mg oral BID DIURETIC Dallas Peña MD 25 mg at 04/21/23 0908 thiamine (VITAMIN B-1) tablet 50 mg 50 mg oral Daily Hien Rabago MD 50 mg at 04/21/23 0908 Assessment/Plan Active Problems: Acute diastolic congestive heart failure (CMS/HCC) ([facility]) Type II diabetes mellitus with foot ulcer (HCC) Hypertension Acute respiratory failure with hypoxia (CMS/HCC) ([facility]) Diarrhea Acute kidney failure (HCC) Elevated troponin Osteomyelitis (HCC) Wounds, multiple Plan # acute hypoxemic respiratory failure 2/2 CHF exacerbation with acute heart failure On 4 L supplemental oxygen -patient is morbidly obese, likely OHS component -echocardiogram to rule out heart failure exacerbation -on Lasix 80 mg IV T.i.d. # COPD -improved respiratory distress -continue bronchodilator # iron-deficiency anemia and folate deficiency - completed IV iron sucrose - start on oral ferrous sulfate # acute osteomyelitis of the right foot calcaneum # abdominal wall infection panniculitis - afebrile, improved leukocytosis - on ceftriaxone and Flagyl day 7, daptomycin day 8 - podiatry would not available for wound debridement - general surgery was consulted for right foot wound debridement yesterday - PICC line in place for discharge planning - will wait for recommendations from General surgery if unable to see the patient will may need to transfer to a different facility for evaluation by Podiatry # diabetes mellitus - patient fasting blood sugar was 71 I am decreasing Lantus to 18 # CKD 3A secondary to possible nephrotic syndrome Stable - Fortune catheter in place -follow renal consult recommendation - Lasix was increased to t.I.d. # PVD - vascular surgery recommended amputation but patient refused. At this point waiting for recommendations from General surgery, Podiatry is not active at this moment. DVT prophylaxis: Heparin GI prophylaxis: Ppi Rehab consult: Ongoing CODE status: Full Code Discharge disposition: SNF It took me 39 minutes review the case, place pertinent orders, discussed current findings with the patient and examined her. * Dante Stubbs MD - 04/22/2023 10:34 AM CDT Progress Note Infectious Diseases Chief complaint: Right calcaneal bone osteomyelitis. Diabetic foot infection. Subjective Pain during dressing change of the right heel area. Denies any fever or chills. No diarrhea Objective Vitals: 04/22/23 1015 BP: Pulse: 91 Resp: Temp: SpO2: Constitutional: Alert, oriented x3. In no distress. Eyes: Sclerae anicteric, no conjunctival erythema Lungs: Clear breath sounds, no crackles, no wheezes Heart: Regular rate and rhythm, no murmurs Abdomen: Bowel sounds present, soft, nontender Skin: Warm and dry, No rashes Extremities: Lower extremity stasis dermatitis. Trace edema. Right foot plantar soft eschar with minimal surrounding erythema. Foul-smelling. No drainage. Neuro: No motor deficit Psych: No anxiety Current Medications: Current Facility-Administered Medications Medication Dose Route Frequency Provider Last Rate Last Admin acetaminophen (TYLENOL) tablet 650 mg 650 mg oral Q4H PRN Amilcar Hancock MD albumin 25 % bottle 25 g 25 g intravenous TID Dallas Peña MD 25 g at 04/21/232021 buPROPion (WELLBUTRIN) tablet 50 mg 50 mg oral BID Hien Rabago MD 50 mg at 06/19/23 2226 sodium chloride 0.9% flush 0.5-20 mL 0.5-20 mL intra-catheter Q8H ERICK Amilcar Hancock MD 10 mL at04/22/23 0528 And sodium chloride 0.9% flush 0.5-20 mL 0.5-20 mL intra-catheter PRN Amilcar Hancock MD And Carrier Fluids for Secondary Infusion - 0.9% Sodium Chloride 30 mL intravenous PRN Amilcar Hancock MD 30 mL at 04/21/232021 Carrier Fluids for Secondary Infusion - 0.9% Sodium Chloride 30 mL intravenous PRN Hien Rabago MD cefTRIAXone (ROCEPHIN) 2,000 mg/20 mL in sterile water (premix) 2,000 mg 2,000 mg intravenous Q24H [facility] Dante Stubbs MD 2,000 mg at 04/22/23 0916 DAPTOmycin (CUBICIN) 50 mg/mL sodium chloride 0.9% 700 mg 700 mg intravenous Q24H Amilcar Hancock MD 700 mg at 04/21/23 1303 dextrose (GLUTOSE) 40 % gel 15 g 15 g oral Q15 Min PRN Amilcar Hancock MD Or dextrose (D10W) 10% bolus 250 mL 250 mL intravenous Q15 Min PRN Amilcar Hancock MD ergocalciferol (VITAMIN D) capsule 50,000 Units 50,000 Units oral Weekly Golden Kidd MD 50,000 Units at 04/17/23 1437 folic acid (FOLVITE) tablet 1 mg 1 mg oral Daily Hien Rabago MD 1 mg at 04/22/23 0916 furosemide (LASIX) 10 mg/mL injection 80 mg 80 mg intravenous Q8H [facility] Golden Kidd MD 80 mg at04/22/23 0916 glucagon injection 1 mg 1 mg intramuscular Q30 Min PRN Amilcar Hancock MD heparin 5,000 unit/mL injection 7,500 Units 7,500 Units subcutaneous Q8H Amilcar Vee MD 7,500 Units at 04/22/23 0524 HYDROmorphone (DILAUDID) injection 0.5 mg 0.5 mg intravenous Q4H PRN Hien Rabago MD 0.5 mgat 04/18/23 1818 insulin glargine (LANTUS, SEMGLEE) 100 unit/mL injection 22 Units 0.15 Units/kg subcutaneous Nightly Amilcar Hancock MD 22 Units at 04/19/23 2151 insulin lispro (HumaLOG, ADMELOG) 100 unit/mL injection 0-4 Units 0-4 Units subcutaneous Nightly Amilcar Hancock MD insulin lispro (HumaLOG, ADMELOG) 100 unit/mL injection 0-5 Units 0-5 Units subcutaneous TID with meals Amilcar Hancock MD insulin lispro (HumaLOG, ADMELOG) 100 unit/mL injection 7 Units 0.05 Units/kg subcutaneous TID withmeals Amilcar Hancock MD 7 Units at 04/16/23 180 ipratropium-albuteroL (DUO-NEB) 0.5-2.5 mg/3 mL nebulizer solution 3 mL 3 mL nebulization Q4H PRN (RT) Darell Paniagua MD 3 mL at 04/22/23 0305 lidocaine PF (XYLOCAINE) 10 mg/mL (1 %) preservative free injection 10-20 mg 1-2 mL subcutaneous Once Dante Stubbs MD metroNIDAZOLE (FLAGYL) tablet 500 mg 500 mg oral TID Dante Stubbs MD 500 mg at 04/22/23 0916 ondansetron ODT (ZOFRAN-ODT) disintegrating tablet 4 mg 4 mg oral Q6H PRN Amilcar Hancock MD Or ondansetron (ZOFRAN) injection 4 mg 4 mg intravenous Q6H PRN Amilcar Hancock MD 4 mg at 04/22/23 0730 sodium chloride (OCEAN) 0.65 % nasal spray 1 spray 1 spray each nostril Q2H PRN Darell Paniagua MD sodium chloride 0.9% flush 5-10 mL 5-10 mL intra-catheter Q12H ERICK Hien Rabago MD 10 mL at04/22/23 0917 sodium chloride 0.9% flush 5-10 mL 5-10 mL intra-catheter Q12H ERICK Dante Stubbs MD 10 mL at 04/22/23 0917 sodium chloride 0.9% flush 5-20 mL 5-20 mL intra-catheter PRN Hien Rabago MD sodium chloride 0.9% flush 5-20 mL 5-20 mL intra-catheter PRN Dante Stubbs MD spironolactone (ALDACTONE) tablet 50 mg 50 mg oral BID DIURETIC Golden Kidd MD 50 mg at 04/22/23 0916 thiamine (VITAMIN B-1) tablet 50 mg 50 mg oral Daily Hien Rabago MD 50 mg at 04/22/23 0916 No Known Allergies Social History Tobacco Use Smoking status: Never Smokeless tobacco: Never Substance and Sexual Activity Drug use: Never Sexual activity: None Alcohol Use: Not on file History reviewed. No pertinent family history. Lab Results Component Value Date HGBA1C 6.5 (H) 04/16/2023 TSH 4.01 04/16/2023 TIBC 186 (L) 04/16/2023 INR 1.3 (H) 04/15/2023 DDIMER 4,470 (H) 04/19/2023 CHOLHDL 3 04/17/2023 HCT 25.8 (L) 04/22/2023 MCH 26.4 (L) 04/22/2023 MCV 86.3 04/22/2023 MPV 8.8 (L) 04/22/2023 HDL 38 (L) 04/17/2023 RBC 2.99 (L) 04/22/2023 RDW 11.7 12/13/2017 WBC 17.6 (H) 04/22/2023 Assessment/Plan 1. Right diabetic foot infection with osteomyelitis of the calcaneus bone from a contiguous soft tissue infection. Patient has necrotic plantar eschar. No drainage. Patient is currently on Rocephin daptomycin and Flagyl day 7. Remains afebrile. Will likely need debridement of the heel eschar. Awaiting Podiatry evaluation. 2. Leukocytosis with white count slowly trending down at 17,000. Continue IV antibiotic therapy. Follow-up serial CBC 3. Type 2 diabetes with blood sugars ranging between 70 to 86. Good glycemic control 4. Acute kidney injury with renal function is improving. Creatinine is at 1.4. Nephrology following. 5. Obesity with BMI of 55 Dante Stubbs MD [facility] Infectious Disease [place] Office [phone] * Esthela Carmen PTA - 04/22/2023 9:49 AM CDT Physical Therapy 04/22/23 0949 PT Last Visit PT Missed Visit Reason Procedure/testing/appointment (Pt getting ready to have pic line placed, 1137 busy with wound care) * Jeanna Amin COTA - 04/22/2023 9:49 AM CDT Occupational Therapy 04/22/23 0949 General Session Type Treatment OT Missed Visit Reason MD/RN Hold (pt getting Picc line) * Golden Kidd MD - 04/22/2023 8:31 AM CDT Renal Progress Note Admit Date: 04/15/2023 Days: 7 Reason for Follow up: Acute on chronic kidney failure Clinical Course/New Symptoms Lying in bed in no distress Data Vitals: 04/22/23 0745 BP: 155/82 Pulse: 87 Resp: 18 Temp: 36.8 ??C (98.2 ??F) SpO2: 96% f breath Exam Constitutional: alert and oriented. Appears well-developed and well-nourished, in no distress. HighBMI Head: Normocephalic. Eyes: No icterus, extraocular movements normal Neck: Neck supple. Cardiovascular: Normal rate and regular rhythm. No murmur heard. Pulmonary/Chest: Diminished breath sounds bilaterally, on oxygen via nasal cannula. Abdominal: Soft. Musculoskeletal: Right lower extremity edema. Heel ulcer is visible. Neurological: alert and moves all 4 limbs. Skin: No rashes Intake/Output Summary (Last 24 hours) at 04/22/2023 0831 Last data filed at 04/21/2023 203 Gross per 24 hour Intake 370 ml Output 2780 ml Net -2410 ml MEDICATIONS FOR CURRENT ENCOUNTER: SCHEDULED MEDICATIONS: Scheduled Medications Medication Dose Route Frequency albumin 25 % bottle 25 g 25 g intravenous TID buPROPion (WELLBUTRIN) tablet 50 mg 50 mg oral BID cefTRIAXone (ROCEPHIN) 2,000 mg/20 mL in sterile water (premix) 2,000 mg 2,000 mg intravenous Q24H ERICK DAPTOmycin (CUBICIN) 50 mg/mL sodium chloride 0.9% 700 mg 700 mg intravenous Q24H ergocalciferol (VITAMIN D) capsule 50,000 Units 50,000 Units oral Weekly folic acid (FOLVITE) tablet 1 mg 1 mg oral Daily furosemide (LASIX) 10 mg/mL injection 80 mg 80 mg intravenous BID DIURETIC heparin 5,000 unit/mL injection 7,500 Units 7,500 Units subcutaneous Q8H ERICK insulin glargine (LANTUS, SEMGLEE) 100 unit/mL injection 22 Units 0.15 Units/kg subcutaneous Nightly insulin lispro (HumaLOG, ADMELOG) 100 unit/mL injection 0-4 Units 0-4 Units subcutaneous Nightly insulin lispro (HumaLOG, ADMELOG) 100 unit/mL injection 0-5 Units 0-5 Units subcutaneous TID with meals insulin lispro (HumaLOG, ADMELOG) 100 unit/mL injection 7 Units 0.05 Units/kg subcutaneous TID withmeals lidocaine PF (XYLOCAINE) 10 mg/mL (1 %) preservative free injection 10-20 mg 1-2 mL subcutaneous Once metroNIDAZOLE (FLAGYL) tablet 500 mg 500 mg oral TID sodium chloride 0.9% flush 0.5-20 mL 0.5-20 mL intra-catheter Q8H ERICK sodium chloride 0.9% flush 5-10 mL 5-10 mL intra-catheter Q12H ERICK sodium chloride 0.9% flush 5-10 mL 5-10 mL intra-catheter Q12H ERICK spironolactone (ALDACTONE) tablet 50 mg 50 mg oral BID DIURETIC thiamine (VITAMIN B-1) tablet 50 mg 50 mg oral Daily CONTINUOUS MEDICATIONS: Current Facility-Administered Medications Medication Dose Route Frequency Last Admin PRN MEDICATIONS: PRN Medications Medication Dose Route Frequency Last Admin acetaminophen (TYLENOL) tablet 650 mg 650 mg oral Q4H PRN sodium chloride 0.9% flush 0.5-20 mL 0.5-20 mL intra-catheter PRN And Carrier Fluids for Secondary Infusion - 0.9% Sodium Chloride 30 mL intravenous PRN 30 mL at 04/21/232021 Carrier Fluids for Secondary Infusion - 0.9% Sodium Chloride 30 mL intravenous PRN dextrose (GLUTOSE) 40 % gel 15 g 15 g oral Q15 Min PRN Or dextrose (D10W) 10% bolus 250 mL 250 mL intravenous Q15 Min PRN glucagon injection 1 mg 1 mg intramuscular Q30 Min PRN HYDROmorphone (DILAUDID) injection 0.5 mg 0.5 mg intravenous Q4H PRN 0.5 mg at 04/18/23 1818 ipratropium-albuteroL (DUO-NEB) 0.5-2.5 mg/3 mL nebulizer solution 3 mL 3 mL nebulization Q4H PRN (RT) 3 mL at 04/22/23 0305 ondansetron ODT (ZOFRAN-ODT) disintegrating tablet 4 mg 4 mg oral Q6H PRN Or ondansetron (ZOFRAN) injection 4 mg 4 mg intravenous Q6H PRN 4 mg at 04/22/23 0730 sodium chloride (OCEAN) 0.65 % nasal spray 1 spray 1 spray each nostril Q2H PRN sodium chloride 0.9% flush 5-20 mL 5-20 mL intra-catheter PRN sodium chloride 0.9% flush 5-20 mL 5-20 mL intra-catheter PRN My review of labs, imaging, notes and other tests is significant for Recent Labs Lab Units 04/22/23 0625 04/21/23 1054 04/20/23 0708 WBC K/cumm 17.6* 21.0* 24.6* HEMOGLOBIN g/dL 7.9* 8.5* 8.3* HEMATOCRIT % 25.8* 27.8* 27.5* PLATELETS K/cumm 516* 528* 538* . Recent Labs Lab Units 04/22/23 0735 04/22/23 0625 04/21/23 2035 04/21/23 1556 04/21/23 1054 04/20/23 0727 04/20/23 0708 SODIUM mmol/L -- 144 -- -- 141 -- 139 POTASSIUM PLASMA mmol/L -- 3.5 -- -- 3.6 -- 3.4 CHLORIDE mmol/L -- 107 -- -- 107 -- 107 CO2 mmol/L -- 28 -- -- 29 -- 28 CREATININE mg/dL -- 1.40* -- -- 1.40* -- 1.50* GLUCOSE mg/dL -- 71 -- -- 80 -- 89 POC GLUCOSE MONITOR mg/dL 70 -- 107 < > -- < > -- CALCIUM mg/dL -- 8.3* -- -- 8.2* -- 7.8* ALBUMIN g/dL -- 1.9* -- -- 1.3* -- 1.3* PHOSPHORUS PLASMA mg/dL -- 3.2 -- -- 3.2 -- 3.4 < > = values in this interval not displayed. .No lab exists for component: COLORUA, CHARACTERUA, SPECGRAVUA, PHUA, PROTEINUA, BLOODUA, LEUKOCYTEUA, NITRITEUA, GLUCOSEUA, KETONEUA, BILIRUBINUA, UROBILINUA, WBCUA, RBCUA, EPITHUA, MUCUSUA, CASTUA,CRYSTALUA, BACTERIAUA, YEASTUA, TRICHUA XR Chest 1 View EXAM DESCRIPTION: XR CHEST 1 VIEW REASON FOR STUDY: Shortness of breath Pt with sob, weakness x 2-3 days on day of admit (04/15/23) TECHNIQUE: 1 radiographic view(s) of the chest. COMPARISON: 04/20/2023 FINDINGS: LUNGS: There is diffuse airspace opacity throughout the right lung, moderate. It is slightly improved from the prior examination. There is to a lesser degree airspace opacity in the left upper lobe which also appears slightly improved. There is no pneumothorax. New large pleural effusion. HEART/MEDIASTINUM: Moderate to marked cardiomegaly is unchanged. LINES/TUBES: Right PICC catheter with the tip at the superior vena cava. Near the junction with the brachiocephalic. BONES: No acute osseous abnormality. IMPRESSION: Slightly improved bilateral airspace opacities, right greater than left. Unchanged moderate to marked cardiomegaly. THIS IS AN ELECTRONICALLY VERIFIED FINAL REPORT 04/22/2023 7:48 AM - Electronically signed by Rio Burleson M.D. KN T: Report ID: [id number] Reading Location: [place] [address] Assessment and Plan Active Problems: Acute diastolic congestive heart failure (CMS/HCC) (HCC) Type II diabetes mellitus with foot ulcer (HCC) Hypertension Acute respiratory failure with hypoxia (CMS/HCC) (HCC) Diarrhea Acute kidney failure (HCC) Elevated troponin Osteomyelitis (HCC) Wounds, multiple Resolved Problems: No resolved hospital problems. BOBBY on CKD in the setting of significant volume overload/pulmonary edema, unclear whether has obstructive uropathy as well, will check a postvoid residual. Does appear quite volume overloaded and will initiate IV furosemide. Obtaining a urinalysis with microscopy as well as a spot urine protein to c reatinine ratio as albumin is 1.8, likely has significant proteinuria. May need to order autoimmuneserology if active UA sediment. Echocardiogram is pending, previous echo with adequate EF and mild diastolic dysfunction. Obtaining a renal ultrasound as well. No acute need for dialysis and hopefully to respond to diuretics. Does have significant leukocytosis may have underlying infection, blood cultures pending, initiated on empiric antibiotics as well. 04/16/2023 Denies any urinary symptoms. Continue furosemide 80 mg IV b.i.d.. Has sub nephrotic proteinuria was1.8 g per g as per a spot sample. Continues to have significantly high leukocytosis. On antibiotics. Urine output noted, probably incomplete. Anemia. Will check iron profile, B12 and folate. Monitor urine output accurately. 2D echo is pending. 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 Noted vascular surgery recommendations regarding a rightabove-knee amputation which the patient declines. 04/17 Serum creatinine down to 2.1 today. Continue diuretics. Serum albumin 1.3. Multifactorial hypoalbuminemia. Non nephrotic range albuminuria previously unlikely primarily secondary to chronic inflammation. Reported diabetic retinopathy with potential need for intervention. Would hold off on prophylactic 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 for now in the setting of hypoalbuminemia. Plans are for PICC line with prolonged antibiotics for attempted limb salvage. Prognosis is extremely guarded. Started on folate and ironreplacement and will add vitamin-D replacement as well given deficiency. 04/18 Creatinine is improving. Down to 1.80. K 3.7, UOP 5000 ml yesterday. Improved creatinine with diuresis. BP 147/77 but variable and lower at times. 2 D Echo with normal EF but with diastolic dysfunction. Likely diabetic kidney disease in the setting of longstanding diabetes as well as diabetic retinopathy. Continue diuresis with furosemide at current dose of 80 mg IV b.i.d.. He is diuresing well. On antibiotics as per primary team/ID/vascular for the diabetic foot infection. She does not have a good appetite and this may be due to her ongoing infection. Likely not related to diminished renal function. Avoid hypotension and nephrotoxins. 04/19/23 Urine output 4-5 0 mL yesterday. Blood pressure 143/78 mmHg. Potassium 3.6, creatinine 1.70 (improved from 1.80 yesterday). Albumin is 1.3. On furosemide 80 mg IV q.12. Adding spironolactone 25 mg p.o. b.i.d.. Will try convert to oral furosemide in the near future. Significant hypoalbuminemia, likely effect of long-term malnutrition, chronic inflammation/infection, proteinuria. Improving nutrition will help but may not be possible without complete treatment of the infection. Monitor electrolytes and adjust spironolactone accordingly. 04/20/2023 Impressive diuresis with a combination of intravenous furosemide and oral spironolactone. Made 6.4 L of urine yesterday. Creatinine continues to decline and is down to 1.50 today. Blood pressure is reasonable at 139/76 mmHg. No hypotension at this time. Will continue current regimen with intravenous furosemide and oral spironolactone and hopefully convert to oral furosemide in the next few days. 04/21/2023 Urine output of 6850 mL yesterday. Blood pressures adequately controlled. Labs from today are stillpending. Continues to need 4 L of oxygen via nasal cannula. Serum albumin is exceedingly low at 1.3. Likely multifactorial including malnutrition, chronic infection, albuminuria contributing to the hy poalbuminemia. CXR continues to show moderate to severe bilateral airspace opacities have increasedwhen compared to 04/19/2023. Will give her a few doses of albumin in the setting of significant hypoalbuminemia. Will need improvement in nutrition, treatment of infection, for the albumin levels to improve. Continue current dose of intravenous furosemide with oral spironolactone since she is achieving significant diuresis with his combination. Chest x-ray continued to show moderate to severe bilateral airspace opacities and hence will continue diuresis. Pulmonary is on board. 04/22 Serum creatinine stable at 1.4, receiving temporary albumin infusions given severe hypoalbuminemia.Continue diuretics. Potassium 3.5 and mildly hypertensive will increase spironolactone to 50 mg b.i.d.. Chest x-ray slightly improved. Will increase furosemide to t.i.d. for now Thank you. Golden Kidd MD [facility] Nephrology and Hypertension Office: [phone] * Darell Paniagua MD - 04/22/2023 6:18 AM CDT Progress Note Patient: Leeroy Canales ( - 1990) is a 32 y.o. female. Visit Date: 04/15/2023 Chief Complaint Patient presents with Shortness of Breath History of Present Illness: The patient is pleasant 32-year-old female who is bed-bound. 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 She is been taking care of by her mom and her sister. She does have history of diabetes. She does not smoke. She presented the emergency room complaining of progressive shortness of breath and cough for the past week or 2. Patient also was having trouble with a wound to her right foot and she is been having nausea. Her initial lab work showed creatinine 2 point 7, alk-phos 381 and albumin 1.8, ABGs showed pH 7.40, pCO2 36 and PO2 49 on room air, her WBC was 98980. Urinalysis showed UTI. Chest x-ray showed Findings are suggestive of pulmonary edema. Her V/Q scan was negative, her D-dimer was elevated. Patient was started on oxygen 4 liter/minute. She does not use oxygenat home or inhaler. She was admitted to the hospital and consultation was requested for further evaluation and management. Upon evaluating the patient, her attitude was depressed or flat. She does report slight postnasal drainage. She does report PND and orthopnea. She denies any history of hemoptysis, epistaxis, hematemesis, melena, hematochezia, diarrhea but constipation. She denies any history syncope or seizure activity. She denies history of fever or chills. She denies any contact with sick people or exposure toTB. She is up-to-date with COVID-19 vaccine. She lives in [place], [place]. She does havea cat at home who does not sleep in her bed. Patient does not ambulate. She was started on cefepime, daptomycin for treatment of possible osteomyelitis. 04/16 -Patient was seen and examined. Lab data were reviewed. Chest x-ray was reviewed by me. medication list was reviewed and adjusted as necessary. Patient is hemodynamically stable. Patient is afebrile.No event overnight. Questions by the patient about the care, plan, medication and possible side effects/ complication of treatment/ medication/ procedures were discussed with patient/ caring agents/ family in details to their satisfaction and understanding. Patient case discussed with the nurse caring for the patient. Patient is doing fair. Patient is feeling okay. She slept okay overnight. Her fluid balance was-400mL. No bowel movement was recorded. She is oxygenating adequately on 4 liter/minute of oxygen. 04/17 -Patient was seen and examined. Lab data were reviewed. Chest x-ray was reviewed by me. medication list was reviewed and adjusted as necessary. Patient is hemodynamically stable. Patient is afebrile.No event overnight. Questions by the patient about the care, plan, medication and possible side effects/ complication of treatment/ medication/ procedures were discussed with patient/ caring agents/ family in details to their satisfaction and understanding. Patient case discussed with the nurse caring for the patient. Patient is doing fair. Patient is feeling better. She is breathing easier. She slept okay overnight. Her oxygenation is adequate on 4 liter[place] [address], albumin 1.3, fluid balance was-1 L. She did have bowel movement overnight. 04/18 -Patient was seen and examined. Lab data were reviewed. Chest x-ray was reviewed by me. medication list was reviewed and adjusted as necessary. Patient is hemodynamically stable. Patient is afebrile.No event overnight. Questions by the patient about the care, plan, medication and possible side effects/ complication of treatment/ medication/ procedures were discussed with patient/ caring agents/ family in details to their satisfaction and understanding. Patient case discussed with the nurse caring for the patient. Patient is doing fair. Patient is unchanged. She slept very good overnight. She is oxygenating adequately on 2-4 liter/minute of oxygen. Her fluid balance was - 3 L. She did have bowel movement overnight. Albumin [place] 1.3, [place] [address]. 04/19 I saw the patient this morning and she was lying in bed and kept her head covered for most of the conversation. She reports her breathing is significantly improved. She has a minimal cough and deniesany sputum production or wheezing. She is afebrile and remains on 4 L of supplemental oxygen with saturations in the mid 90s. Labs are pending this morning but she has had continued improvement in renal function with significant diuresis 04/21 -Patient was seen and examined. Lab data were reviewed. Chest x-ray was reviewed by me. medication list was reviewed and adjusted as necessary. Patient is hemodynamically stable. Patient is afebrile.No event overnight. Questions by the patient about the care, plan, medication and possible side effects/ complication of treatment/ medication/ procedures were discussed with patient/ caring agents/ family in details to their satisfaction and understanding. Patient case discussed with the nurse caring for the patient. Patient is doing fair. Patient is feeling okay. She is oxygenating adequately on 4 liter/minute of oxygen. [place] [address], albumin is 1.3. Her fluid balance was-5400 mL. She did have bowel movement overnight. 04/22 -Patient was seen and examined. Lab data were reviewed. Chest x-ray was reviewed by me. medication list was reviewed and adjusted as necessary. Patient is hemodynamically stable. Patient is afebrile.No event overnight. Questions by the patient about the care, plan, medication and possible side effects/ complication of treatment/ medication/ procedures were discussed with patient/ caring agents/ family in details to their satisfaction and understanding. Patient case discussed with the nurse caring for the patient. Patient is doing fair. Patient is feeling okay. She did sit on side of bed yesterday. She is oxygenating adequately on 4 liter/minute of oxygen. She does not have oxygen at home. Her fluid balance was-2400 mL. [place] [address]. Past Medical History: Past Medical History: Diagnosis Date CHF (congestive heart failure) (CMS/HCC) (HCC) CKD (chronic kidney disease) Diabetes mellitus (HCC) Hx of AKA (above knee amputation) (CMS/HCC) (HCC) Left Hypertension Surgical History: Past Surgical History: Procedure Laterality Date ABOVE KNEE LEG AMPUTATION Left Current Medications: Current Facility-Administered Medications Medication Dose Route Frequency Provider Last Rate Last Admin acetaminophen (TYLENOL) tablet 650 mg 650 mg oral Q4H PRN Amilcar Hancock MD albumin 25 % bottle 25 g 25 g intravenous TID Dallas Peña MD 25 g at 04/21/232021 buPROPion (WELLBUTRIN) tablet 50 mg 50 mg oral BID Hien Rabago MD 50 mg at 04/21/23 2226 sodium chloride 0.9% flush 0.5-20 mL 0.5-20 mL intra-catheter Q8H [facility] Amilcar Hancock MD 10 mL at04/22/23 0528 And sodium chloride 0.9% flush 0.5-20 mL 0.5-20 mL intra-catheter PRN Amilcar Hancock MD And Carrier Fluids for Secondary Infusion - 0.9% Sodium Chloride 30 mL intravenous PRN Amilcar Hancock MD 30 mL at 04/21/232021 Carrier Fluids for Secondary Infusion - 0.9% Sodium Chloride 30 mL intravenous PRN Hien Rabago MD cefTRIAXone (ROCEPHIN) 2,000 mg/20 mL in sterile water (premix) 2,000 mg 2,000 mg intravenous Q24H Dante Fitzgerald MD 2,000 mg at 04/21/23 0909 DAPTOmycin (CUBICIN) 50 mg/mL sodium chloride 0.9% 700 mg 700 mg intravenous Q24H Amilcar Hanocck MD 700 mg at 04/21/23 1303 dextrose (GLUTOSE) 40 % gel 15 g 15 g oral Q15 Min PRN Amilcar Hancock MD Or dextrose (D10W) 10% bolus 250 mL 250 mL intravenous Q15 Min PRN Amilcar Hancock MD ergocalciferol (VITAMIN D) capsule 50,000 Units 50,000 Units oral Weekly Golden Kidd MD 50,000 Units at 04/17/23 1437 folic acid (FOLVITE) tablet 1 mg 1 mg oral Daily Hien Rabago MD 1 mg at 04/21/23 0908 furosemide (LASIX) 10 mg/mL injection 80 mg 80 mg intravenous BID DIURETIC Amilcar Hancock MD 80 mg at 04/21/23 1557 glucagon injection 1 mg 1 mg intramuscular Q30 Min PRN Amilcar Hancock MD heparin 5,000 unit/mL injection 7,500 Units 7,500 Units subcutaneous Q8H ERICK Amilcar Hancock MD 7,500 Units at 04/22/23 0524 HYDROmorphone (DILAUDID) injection 0.5 mg 0.5 mg intravenous Q4H PRN Hien Rabago MD 0.5 mgat 04/18/23 1818 insulin glargine (LANTUS, SEMGLEE) 100 unit/mL injection 22 Units 0.15 Units/kg subcutaneous Nightly Amilcar Hancock MD 22 Units at 04/19/23 2151 insulin lispro (HumaLOG, ADMELOG) 100 unit/mL injection 0-4 Units 0-4 Units subcutaneous Nightly Amilcar Hancock MD insulin lispro (HumaLOG, ADMELOG) 100 unit/mL injection 0-5 Units 0-5 Units subcutaneous TID with meals Amilcar Hancock MD insulin lispro (HumaLOG, ADMELOG) 100 unit/mL injection 7 Units 0.05 Units/kg subcutaneous TID withmeals Amilcar Hancock MD 7 Units at 04/16/23 1801 ipratropium-albuteroL (DUO-NEB) 0.5-2.5 mg/3 mL nebulizer solution 3 mL 3 mL nebulization Q4H PRN (RT) Darell Paniagua MD 3 mL at 04/22/23 0305 lidocaine PF (XYLOCAINE) 10 mg/mL (1 %) preservative free injection 10-20 mg 1-2 mL subcutaneous Once Dante Stubbs MD metroNIDAZOLE (FLAGYL) tablet 500 mg 500 mg oral TID Dante Stubbs MD 500 mg at 04/21/232023 ondansetron ODT (ZOFRAN-ODT) disintegrating tablet 4 mg 4 mg oral Q6H PRN Amilcar Hancock MD Or ondansetron (ZOFRAN) injection 4 mg 4 mg intravenous Q6H PRN Amilcar Hancock MD sodium chloride (OCEAN) 0.65 % nasal spray 1 spray 1 spray each nostril Q2H PRN Darell Paniagua MD sodium chloride 0.9% flush 5-10 mL 5-10 mL intra-catheter Q12H Hien Garcia MD 10 mL at04/21/23 2138 sodium chloride 0.9% flush 5-10 mL 5-10 mL intra-catheter Q12H Dante Fitzgerald MD sodium chloride 0.9% flush 5-20 mL 5-20 mL intra-catheter PRN Hien Rabago MD sodium chloride 0.9% flush 5-20 mL 5-20 mL intra-catheter PRN Dante Stubbs MD spironolactone (ALDACTONE) tablet 25 mg 25 mg oral BID DIURETIC Dallas Peña MD 25 mg at 04/21/23 1557 thiamine (VITAMIN B-1) tablet 50 mg 50 mg oral Daily Hien Rabago MD 50 mg at 04/21/23 0908 Allergies: No Known Allergies Family History: History reviewed. No pertinent family history. Social History: Social History Tobacco Use Smoking status: Never Smokeless tobacco: Never Substance and Sexual Activity Drug use: Never Sexual activity: None Alcohol Use: Not on file Review of Systems: Review of Systems Constitutional: Positive for fatigue. Negative for appetite change, chills and fever. HENT: Negative for congestion, ear pain, mouth sores, tinnitus and voice change. Eyes: Negative for photophobia and pain. Respiratory: Positive for cough and shortness of breath. Negative for choking and stridor. Cardiovascular: Positive for leg swelling. Negative for chest pain and palpitations. Gastrointestinal: Negative for abdominal distention, abdominal pain and nausea. Endocrine: Negative for cold intolerance and polyphagia. Genitourinary: Negative for dysuria and hematuria. Musculoskeletal: Positive for gait problem. Negative for joint swelling. Skin: Negative for pallor and rash. Allergic/Immunologic: Negative for immunocompromised state. Neurological: Positive for weakness. Negative for seizures and facial asymmetry. Hematological: Negative for adenopathy. Does not bruise/bleed easily. Psychiatric/Behavioral: Negative for agitation and confusion. Physical Exam: Vitals: 06/19/23 1940 04/21/23 2322 04/21/23 2328 04/22/23 0305 BP: 149/76 136/73 150/80 BP Location: Left arm Left arm Left arm Patient Position: HOB 30 degrees HOB 30 degrees HOB 30 degrees;Lying Pulse: 87 97 91 88 Resp: 17 18 18 Temp: 37.6 ??C (99.7 ??F) 36.4 ??C (97.6 ??F) 36.7 ??C (98 ??F) TempSrc: Oral Oral Axillary SpO2: 95% 92% 96% Weight: Height: Physical Exam Constitutional: General: She is not in acute distress. Appearance: She is well-developed. She is morbidly obese. She is ill-appearing. She is not diaphoretic. HENT: Head: Normocephalic and atraumatic. Neck: Thyroid: No thyromegaly. Cardiovascular: Rate and Rhythm: Normal rate and regular rhythm. Heart sounds: No murmur heard. No gallop. Pulmonary: Effort: Pulmonary effort is normal. No accessory muscle usage or respiratory distress. Breath sounds: No stridor. Examination of the right-upper field reveals decreased breath sounds. Examination of the left-upper field reveals decreased breath sounds. Examination of the right-lower field reveals rales. Examination of the left-lower field reveals rales. Decreased breath sounds and rales present. Chest: Chest wall: No tenderness. Abdominal: General: Bowel sounds are normal. There is no distension. Palpations: Abdomen is soft. Tenderness: There is no abdominal tenderness. Musculoskeletal: General: No tenderness or deformity. Normal range of motion. Cervical back: Normal range of motion and neck supple. Right lower leg: Edema present. Left lower leg: Edema present. Comments: Left BKA Lymphadenopathy: Cervical: No cervical adenopathy. Skin: General: Skin is warm and dry. Capillary Refill: Capillary refill takes less than 2 seconds. Findings: Lesion and rash present. No erythema. Neurological: Mental Status: She is alert and oriented to person, place, and time. Cranial Nerves: No cranial nerve deficit. Motor: Weakness present. Coordination: Coordination normal. Psychiatric: Mood and Affect: Mood is depressed. Behavior: Behavior normal. Data Reviewed Recent Results (from the past 24 hour(s)) POCT glucose Collection Time: 04/21/23 7:39 AM Result Value Ref Range Glucose, POC 78 70 - 199 mg/dL Glucose comment 1 Use This Result Glucose comment 2 RN/ Notified POCT glucose Collection Time: 04/21/23 10:47 AM Result Value Ref Range Glucose, POC 77 70 - 199 mg/dL Glucose comment 1 Use This Result Glucose comment 2 RN/MD Notified Comprehensive metabolic panel Collection Time: 04/21/23 10:54 AM Result Value Ref Range Sodium 141 135 - 145 mmol/L Potassium, pl 3.6 3.3 - 4.9 mmol/L Chloride 107 97 - 110 mmol/L CO2 29 22 - 32 mmol/L Anion gap 5 2 - 15 mmol/L BUN 20 8 - 25 mg/dL Creatinine 1.40 (H) 0.60 - 1.10 mg/dL Glucose 80 70 - 199 mg/dL Calcium 8.2 (L) 8.5 - 10.3 mg/dL Bilirubin, total 0.2 0.1 - 1.2 mg/dL Protein, pl 5.5 (L) 6.5 - 8.5 g/dL Albumin 1.3 (L) 3.5 - 5.0 g/dL Alk phos 288 (H) 40 - 130 Units/L ALT 13 7 - 45 Units/L AST 11 10 - 45 Units/L CBC with auto differential Collection Time: 04/21/23 10:54 AM Result Value Ref Range WBC 21.0 (H) 3.8 - 9.9 K/cumm Hgb 8.5 (L) 11.9 - 15.5 g/dL Hct 27.8 (L) 35.6 - 45.5 % Plt 528 (H) 150 - 400 K/cumm MPV 8.8 (L) 9.1 - 12.3 fL RBC 3.23 (L) 3.90 - 5.20 M/cumm MCV 86.1 81.3 - 96.4 fL MCH 26.3 (L) 27.1 - 33.3 pg MCHC 30.6 (L) 32.3 - 35.7 g/dL RDW CV 17.2 (H) 11.1 - 14.9 % RDW SD 54.9 (H) 35.7 - 48.1 fL NRBC abs 0.00 0.00 - 0.01 K/cumm Magnesium Collection Time: 04/21/23 10:54 AM Result Value Ref Range Magnesium 1.8 1.4 - 2.5 mg/dL Phosphorus Collection Time: 04/21/23 10:54 AM Result Value Ref Range Phosphorus, pl 3.2 2.3 - 4.5 mg/dL Procalcitonin Collection Time: 04/21/23 10:54 AM Result Value Ref Range Procalcitonin 0.39 0.02 - 0.80 ng/mL Pro B-type natriuretic peptide Collection Time: 04/21/23 10:54 AM Result Value Ref Range NT-proBNP 10,513 (H) <=300 pg/mL Differential, auto Collection Time: 04/21/23 10:54 AM Result Value Ref Range Neutrophil abs 17.1 (H) 1.7 - 6.5 K/cumm Imm gran abs 0.3 (H) 0.0 - 0.1 K/cumm Lymphocyte abs 1.7 0.8 - 3.3 K/cumm Monocyte abs 1.4 (H) 0.2 - 0.8 K/cumm Eosinophil abs 0.4 0.0 - 0.5 K/cumm Basophil abs 0.1 0.0 - 0.1 K/cumm Neutrophil pct 81.5 % Imm gran pct 1.6 % Lymphocyte pct 8.0 % Monocyte pct 6.7 % Eosinophil pct 2.0 % Basophil pct 0.2 % eGFR Collection Time: 04/21/23 10:54 AM Result Value Ref Range eGFR 52 mL/min/1.73 m2 POCT glucose Collection Time: 04/21/23 3:56 PM Result Value Ref Range Glucose, POC 86 70 - 199 mg/dL Glucose comment 1 Use This Result Glucose comment 2 RN/MD Notified POCT glucose Collection Time: 04/21/23 7:38 PM Result Value Ref Range Glucose, POC 78 70 - 199 mg/dL Glucose comment 1 Use This Result POCT glucose Collection Time: 04/21/23 8:35 PM Result Value Ref Range Glucose, POC 107 70 - 199 mg/dL Glucose comment 1 Use This Result Images: NM Pulmonary Perfusion Imaging Result Date: 04/15/2023 Narrative: EXAM DESCRIPTION: NM PULMONARY PERFUSION IMAGING RADIOPHARMACEUTICAL: 4 mCi Tc-99m MAA via a right antecubital vein IV site REASON FOR STUDY: Chest pain. Shortness of breath and cough. TECHNIQUE: Limited multi-planar perfusion scintigrams were obtained. COMPARISON: Chest radiograph 04/15/2023 FINDINGS: Perfusion images obtained in the anterior, anterior oblique, and lateral projectionswere obtained. The posterior and posterior oblique projections were not obtained. There is mild enlargement of the cardiomediastinal silhouette. There are no large segmental perfusion defects on the provided images. IMPRESSION: 1. Limited perfusion lung scan with a low probability for pulmonary embolism. THIS IS AN ELECTRONICALLY VERIFIED FINAL REPORT 04/15/2023 4:31 PM - Electronically signed by Amor MAURER T: Report ID: [id number] Reading Location: [id number] XR Foot Right 3 or More Views Result Date: 04/15/2023 Narrative: EXAM DESCRIPTION: XR FOOT RIGHT 3 OR MORE VIEWS REASON FOR STUDY: Wound infection TECHNIQUE: 3 radiographic view(s) of the right foot . COMPARISON: 02/20/2023 FINDINGS: Plantar soft tissueulceration of the hindfoot with underlying soft tissue gas. There is diffuse soft tissue swelling of the foot, particularly involving the dorsal aspect of the mid to forefoot. No radiopaque foreign bodies. There is suspected mild osseous cortical erosion involving the plantar aspect of the calcaneus when compared to the prior exam. No acute fracture or dislocation. IMPRESSION: Prominent soft tissue ulceration of the plantar aspect of the hindfoot with underlying soft tissue gas. Suspected osseous cortical erosion involving the plantar aspect of the calcaneus, concerning for acute osteomyelitis. THIS IS AN ELECTRONICALLY VERIFIED FINAL REPORT 04/15/2023 2:51 PM - Electronically signed by Rio PHILLIPS T: Report ID: [id number] Reading Location: [id number] XR Chest 1 Vw Portable Result Date: 04/15/2023 Narrative: EXAM DESCRIPTION: XR CHEST 1 VIEW REASON FOR STUDY: Shortness of breath Pt with sob, weakness x 2-3 days Hx lg necrotic wnd on rt foot that she is being treated for Pt is lt leg amputee above the knee TECHNIQUE: 1 radiographic view(s) of the chest. COMPARISON: None FINDINGS: LUNGS: Diffuse bilateral interstitial opacities. No focal consolidation. No pneumothorax. No large pleural effusion. HEART/MEDIASTINUM: Cardiac silhouette is enlarged.. Mediastinal and hilar contours appear normal. LINES/TUBES: None. BONES: No acute osseous abnormality. IMPRESSION: Findings are suggestive of pulmonary edema. THIS IS AN ELECTRONICALLY VERIFIED FINAL REPORT 04/15/2023 2:43 PM - Electronically signed by Rio Smith M.D. KR T: Report ID: [id number] Reading Location: [place] [id number] Assessment and Plan: Assessment Acute hypoxemic respiratory failure secondary to fluid overload/pulmonary edema and possible sepsis. No history of smoking. Bed bound. Right BKA. Renal insufficiency. Plan Oxygen keep ox saturation more than 92%. Bronchodilators around the clock and as needed with albuterol and Atrovent. Head of bed elevation and aspiration precaution. Diuresis, monitor O2 retires and fluid balance, monitor kidney function. Incentive spirometry and physical therapy. Out of bed to the chair if possible. Pulmonary toilet and pep valve. Check blood culture, sputum culture, ESR, CRP, BNP, procalcitonin and MRSA. Saline nasal spray twice daily. Patient would need outpatient split sleep study. Condition is guarded. Will monitor patient closely. Continue antibiotics, daptomycin and cefepime. Check 2D echocardiogram. 04/16 -continue daptomycin, cefepime, day 2., patient would need 2D echocardiogram to evaluate her cardiomegaly and fluid overload on chest x-ray. Continue monitoring electrolytes, kidney function, input and output. Continue bronchodilators, oxygen supplement keep ox saturation more than 92%, head of bedelevation, aspiration precaution, pep valve, pulmonary toilet, DVT and stress ulcer prophylaxis, continue wound care and continue monitor patient closely. Patient condition is guarded. 04/17 -daptomycin, cefepime(was switched to ceftriaxone and Flagyl), day 3., 2D echocardiogram was reviewed. Continue nutritional support, head of bed elevation, aspiration precaution, pulmonary toilet, DVT and stress ulcer prophylaxis, pep valve, bronchodilators, oxygen supplement keep ox saturation more than 92%, wean oxygen as tolerated, continue wound care, continue diuresis, monitor electrolytes and fluid balance, patient condition continued to be guarded. 04/18 -antibiotics, ceftriaxone, Flagyl and daptomycin, day number 4 continue weaning oxygen keep ox saturation more than 92%, head of bed elevation, aspiration precaution, bronchodilators, incentive spirometry, physical therapy, pep valve, DVT and stress ulcer prophylaxis, pulmonary toilet, continue wound care, diuresis, monitor electrolytes and fluid balance, continue monitor patient closely. She would need outpatient split sleep study. 04/19 - again respiratory failure seems to be likely related to volume overload and acute renal insufficiency. This continues to improve with diuresis. Awaiting labs from today but will continue to monitorrenal function and electrolytes. She continues on antibiotics for right lower extremity osteomyelitis. Low suspicion for eosinophilic pneumonia/pneumonitis from daptomycin. Wean oxygen as tolerated and recommend sleep study as an outpatient. Pulmonary will follow peripherally over the weekend. The patient will be seen by Dr. Paniagua on Friday. Please call with any further questions. 04/21 -patient continued to be on oxygen 4 liter/minute, she does not have oxygen at home. Her albumin isonly 1.3. Continue antibiotics, daptomycin, Rocephin and Flagyl day number 6, continue nutritional support, high-protein diet, diuresis, monitor electrolytes and fluid balance, head of bed elevation,aspiration precaution, incentive spirometry, physical therapy, pulmonary toilet, out of bed to the chair if possible, pulmonary toilet, DVT and stress ulcer prophylaxis, continue weaning oxygen keep ox saturation more than 92%, continue monitor patient closely. Condition is very guarded. 04/22 -continue oxygen supplement, wean as tolerated, head of bed elevation, aspiration precaution, incentive spirometry, physical therapy, pulmonary toilet, sitting on side of bed, out of bed to the chairpossible, daptomycin Rocephin, Flagyl, day 7., continue DVT and stress ulcer prophylaxis, continue diuresis, monitor electrolytes and fluid balance, continue monitor patient closely. Continue bronchodilators Patient condition is guarded. Rendering Provider & Department: Darell Paniagua MD THIS NOTE WAS CREATED IN PART WITH THE ASSISTANCE OF [employer]. ASSISTANT PRODUCER VARIANCES MAY OCCUR. For patients or family members viewing this note through [employer]: This note was written as a communication tool between healthcare providers and may contain technical language, terminology and abbreviations that is difficult to interpret without advanced medical training. If you have questions or concerns regarding what is written in this note, please request to speak with the healthcare provider taking care of you or your family member. * Ying Magallanes BSW - 04/21/2023 10:04 PM CDT [facility] ([facility]) Navigator Note Behavioral Health is aware of consult and will assess pt when a HP is available. ROVERTO Mar Behavioral Health Navigator * Reba Greer RN - 04/21/2023 4:32 PM CDT Case Management Progression of Care Note: Continued Stay Review: Contacted Dr Sharma, who is unavailable for this week. General surgery consulted for possible debridement of foot. Patient will need bed bug exterminator antibiotic therapy. PT/OT Evaluations/Recommendations: Potential D/C Needs: Potential Discharge Needs Home Health: [facility], Occupational therapy, Physical therapy, Other (Comment) (child welfare social worker) Anticipated discharge level of care: Private residence Pt/Family agrees with Anticipated Level of Care: Yes Patient expects to be discharged to:: Private residence Community Resources: Homemaker services, Other (Comment) (Private Caregiver information) Behavioral Health Services: No (04/16/23 1217) Expected D/C Date: 04/24/23 Case discussed with care team. Care Management Team will continue to follow progression of care and monitor for further d/c needs. Reba Greer RN 04/21/2023 4:32 PM * Hien Rabago MD - 04/21/2023 3:30 PM CDT General Medicine Daily Progress DOA: 04/15/2023 Subjective Chief complaint of . dyspnea Interval History: Acute dyspnea resolved, on 4 L supplemental oxygen Past Medical History: Diagnosis Date CHF (congestive heart failure) (CMS/HCC) (HCC) CKD (chronic kidney disease) Diabetes mellitus (HCC) Hx of AKA (above knee amputation) (CMS/HCC) (HCC) Left Hypertension Objective Vitals: 24hr Min/Max: Temp Min: 36.6 ??C (97.9 ??F) Max: 36.8 ??C (98.3 ??F) Pulse Min: 86 Max: 99 BP Min: 129/84 Max: 153/78 Resp Min: 17 Max: 19 SpO2 Min: 93 % Max: 98 % Most Recent : Vitals: 04/21/23 1120 BP: 138/80 Pulse: 89 Resp: 18 Temp: 36.6 ??C (97.9 ??F) SpO2: 97% I/O last 2 completed shifts: In: 160 [P.O.:160] Out: 6850 [Urine:6850] I/O this shift: In: 30 [I.V.:10; IV Piggyback:20] Out: 1000 [Urine:1000] Physical Exam: Physical Exam Constitutional: Appearance: She is well-developed. She is obese. She is ill-appearing. She is not diaphoretic. HENT: Head: Normocephalic. Mouth/Throat: Mouth: Mucous membranes are moist. Eyes: Pupils: Pupils are equal, round, and reactive to light. Neck: Thyroid: No thyromegaly. Vascular: No JVD. Cardiovascular: Rate and Rhythm: Normal rate and regular rhythm. Pulmonary: Effort: Pulmonary effort is normal. No tachypnea. Breath sounds: Examination of the right-lower field reveals rales. Examination of the left-lower field reveals rales. Decreased breath sounds and rales present. No wheezing or rhonchi. Chest: Chest wall: No mass. Abdominal: General: Bowel sounds are normal. Palpations: Abdomen is soft. There is no hepatomegaly. Musculoskeletal: General: Normal range of motion. Cervical back: Normal range of motion. Right lower leg: Edema present. Comments: Left AKA Skin: General: Skin is warm. Capillary Refill: Capillary refill takes less than 2 seconds. Coloration: Skin is not pale. Findings: Ecchymosis and erythema present. No rash. Neurological: General: No focal deficit present. Mental Status: She is alert and oriented to person, place, and time. Psychiatric: Mood and Affect: Mood normal. Lab/Radiology/Diagnostic Review: Laboratory review: Chemistry BMP Lab Results Component Value Date GLUCOSE 80 04/21/2023 GLUCOSE 77 04/21/2023 CALCIUM 8.2 (L) 04/21/2023 SODIUM 141 04/21/2023 POTASSIUM 3.6 04/21/2023 CO2 29 04/21/2023 BUNSER 20 04/21/2023 CREATININE 1.40 (H) 04/21/2023 and CBC: Lab Results Component Value Date WBC 21.0 (H) 04/21/2023 RBC 3.23 (L) 04/21/2023 HGB 8.5 (L) 04/21/2023 HCT 27.8 (L) 04/21/2023 MCV 86.1 04/21/2023 MCH 26.3 (L) 04/21/2023 MCHC 30.6 (L) 04/21/2023 RDWCV 17.2 (H) 04/21/2023 RDWSD 54.9 (H) 04/21/2023 MPV 8.8 (L) 04/21/2023 NRBCABS 0.00 04/21/2023 Current Facility-Administered Medications Medication Dose Route Frequency Provider Last Rate Last Admin acetaminophen (TYLENOL) tablet 650 mg 650 mg oral Q4H PRN Amilcar Hancock MD albumin 25 % bottle 25 g 25 g intravenous TID Dallas Peña MD sodium chloride 0.9% flush 0.5-20 mL 0.5-20 mL intra-catheter Q8H Amilcar Vee MD 10 mL at04/21/23 1304 And sodium chloride 0.9% flush 0.5-20 mL 0.5-20 mL intra-catheter PRN Amilcar Hancock MD And Carrier Fluids for Secondary Infusion - 0.9% Sodium Chloride 30 mL intravenous PRN Amilcar Hancock MD cefTRIAXone (ROCEPHIN) 2,000 mg/20 mL in sterile water (premix) 2,000 mg 2,000 mg intravenous Q24H Dante Fitzgerald MD 2,000 mg at 04/21/23 0909 DAPTOmycin (CUBICIN) 50 mg/mL sodium chloride 0.9% 700 mg 700 mg intravenous Q24H Amilcar Hancock MD 700 mg at 04/21/23 1303 dextrose (GLUTOSE) 40 % gel 15 g 15 g oral Q15 Min PRN Amilcar Hancock MD Or dextrose (D10W) 10% bolus 250 mL 250 mL intravenous Q15 Min PRN Amilcar Hancock MD ergocalciferol (VITAMIN D) capsule 50,000 Units 50,000 Units oral Weekly Golden Kidd MD 50,000 Units at 04/17/23 1437 folic acid (FOLVITE) tablet 1 mg 1 mg oral Daily Hien Rabago MD 1 mg at 04/21/23 0908 furosemide (LASIX) 10 mg/mL injection 80 mg 80 mg intravenous BID DIURETIC Amilcar Hancock MD 80 mg at 04/21/23 0908 glucagon injection 1 mg 1 mg intramuscular Q30 Min PRN Amilcar Hancock MD heparin 5,000 unit/mL injection 7,500 Units 7,500 Units subcutaneous Q8H ERICK Amilcar Hancock MD 7,500 Units at 04/21/23 1304 HYDROmorphone (DILAUDID) injection 0.5 mg 0.5 mg intravenous Q4H PRN Hien Rabago MD 0.5 mg at 04/18/23 1818 insulin glargine (LANTUS, SEMGLEE) 100 unit/mL injection 22 Units 0.15 Units/kg subcutaneous Nightly Amilcar Hancock MD 22 Units at 04/19/23 2151 insulin lispro (HumaLOG, ADMELOG) 100 unit/mL injection 0-4 Units 0-4 Units subcutaneous Nightly Amilcar Hancock MD insulin lispro (HumaLOG, ADMELOG) 100 unit/mL injection 0-5 Units 0-5 Units subcutaneous TID with meals Amilcar Hancock MD insulin lispro (HumaLOG, ADMELOG) 100 unit/mL injection 7 Units 0.05 Units/kg subcutaneous TID withmeals Amilcar Hancock MD 7 Units at 04/16/23 1801 ipratropium-albuteroL (DUO-NEB) 0.5-2.5 mg/3 mL nebulizer solution 3 mL 3 mL nebulization Q4H PRN (RT) Darell Paniagua MD metroNIDAZOLE (FLAGYL) tablet 500 mg 500 mg oral TID Dante Stubbs MD 500 mg at 04/21/23 0908 ondansetron ODT (ZOFRAN-ODT) disintegrating tablet 4 mg 4 mg oral Q6H PRN Amilcar Hancock MD Or ondansetron (ZOFRAN) injection 4 mg 4 mg intravenous Q6H PRN Amilcar Hancock MD sodium chloride (OCEAN) 0.65 % nasal spray 1 spray 1 spray each nostril Q2H PRN Darell Paniagua MD sodium chloride 0.9% flush 5-10 mL 5-10 mL intra-catheter Q12H ERICK Hien Rabago MD 10 mL at04/21/23 0920 sodium chloride 0.9% flush 5-20 mL 5-20 mL intra-catheter PRN Hien Rabago MD spironolactone (ALDACTONE) tablet 25 mg 25 mg oral BID DIURETIC Dallas Peña MD 25 mg at 04/21/23 0908 thiamine (VITAMIN B-1) tablet 50 mg 50 mg oral Daily Hien Rabago MD 50 mg at 04/21/23 0908 Assessment/Plan Active Problems: Acute diastolic congestive heart failure (CMS/HCC) ([facility]) Type II diabetes mellitus with foot ulcer (HCC) Hypertension Acute respiratory failure with hypoxia (CMS/HCC) (HCC) Diarrhea Acute kidney failure (HCC) Elevated troponin Osteomyelitis (HCC) Wounds, multiple Plan # acute hypoxemic respiratory failure 2/2 CHF exacerbation with acute heart failure On 3 L supplemental oxygen -patient is morbidly obese, likely OHS component -echocardiogram to rule out heart failure exacerbation -on Lasix 80 mg IV b.i.d. 04/21 Head of bed 30?? as patient has OHS On 4 L supplemental oxygen Mild crackles bilateral bases Follow ID consult recommendations and Pulmonary recommendations Wound culture grew Streptococcus agalactiae group B, blood culture shows no growth # COPD -improved respiratory distress -continue bronchodilator # iron-deficiency anemia and folate deficiency - completed IV iron sucrose - start on oral ferrous sulfate # acute osteomyelitis of the right foot calcaneum # abdominal wall infection panniculitis - afebrile, improved leukocytosis - on ceftriaxone and Flagyl day 6, daptomycin day 7 - podiatry would not available for wound debridement - general surgery was consulted for right foot wound debridement today - PICC line in place for discharge planning # diabetes mellitus -continue insulin regimen # CKD 3A secondary to possible nephrotic syndrome Stable - Fortune catheter in place -follow renal consult recommendation # PVD -follow vascular surgery recommendation DVT prophylaxis: Heparin GI prophylaxis: Ppi Rehab consult: Ongoing CODE status: Full Code Discharge disposition: SNF * Sylvia Colorado OT - 04/21/2023 11:10 AM CDT Occupational Therapy 04/21/23 1110 General Chart Reviewed Yes Session Type Evaluation OT Received On 04/21/23 Safe Environment Patient found in supine;Session completed bedside (on low loss air mattress) Subjective Comment Pt appears initially with flat affect, minimal communication but becomes tearfulduring session. Pt indicates she is feeling grief and increasing hopelessness. Additional Pertinent History 32 yo admitted with dyspnea, acute CHF, BOBBY, osteomyelitis, worsening R lateral foot wound, abdominal wall infection panniculitis, Podiatry for I&D HX: L AKA, DM, morbid obesity, home O2, CKD, PVD Occupational Therapy-Patient Goal Pt in agreement for therapy, but does not develop goal at this time Current Functional Status OT Functional Mobility MAX +2 with use of TAPS for supine to sit EOB with assist of railing. Increased time to progress hip flexion, pelvis to neutral to facilitate sitting balance. Pt unsafe for standing with prolonged immobility in bed, and NWB recommended with current level of wound/infection. OT Self Care MAX assist +2-3 for bowel incontinence. Pt unable to reach to assist with anterior hygiene, management of pannus. Facial washing and unilateral hair combing at EOB with set up, use of L UE with MIN for sitting balance. Pt uanble to complete bimanual ADLs with use of R UE for maintaining hip flexion, sitting balance. Pt with high level of exertion to maintain sititng at EOB for 6-7 min (pt refusing sitting support to complete oral care with set up). Balance currently not sufficient for transfer board transfer to drop arm bariatric chair, bariatric toilet. Precautions Precautions Bed/Chair Alarm;Fall risk (skin itegrity, pressure wounds, HOB >30 degrees) Weight Bearing Restrictions Yes RLE Weight Bearing NWB (with current level of wound infection/vascular involement.) Precaution Comments bariatric precautions, assist +2 for all activity, wounds to anterior groin, prevalon boot for R LE [facility] Home Layout One level Home Access Level entry Bathroom Equipment (drop arm BSC) Home Mobility Equipment-Available Wheelchair-manual;Sliding Board Home Mobility Equipment-Currently Using Wheelchair-manual Additional Comments Pt sleeping on standard air mattress. Prior Function Level of [place] Dependent with homemaking;Needs assistance with functional transfers;Needs assistance with ADLs Lives With Family (Mother, step father, brother) Receives Help From Family Driving No Vocational/Occupation (disabled) Fall within the last 6 months No Prior Function Comments Pt has been grossly bed bound approx last 2 wks per her report. She was able to sit EOB without assist. After prior L AKA, pt went to [facility]. Pt does not have prosthesis. Brother was lifting pt to transfer to BSC 1-2x day and to w/c. Pt was able to propel w/c. She has transfer board used for transfers in/out of car, but unsure last time utilized. Pt has relied on assist for incontinence, bed bathing. Pain Assessment Pain Assessment No/denies pain (denies pain at this time. No pain in R foot. States pain in back flucutates) Pain Type Chronic pain Activity Tolerance Endurance Tolerates 10 - 20 min activity with multiple rests Activity Tolerance Comments tolerates rolling for bed mobility, sitting for approx 8 min with assist. MAX exertion but with VSS on 4L/min supplemental O2. Cognition Cognition Comments Pt with flat affect, psychomotor delay. Pt cooperative and able to engage but decreased motivation. Pt with recent decreased activity, increased pain, and decreased social interaction impacting cognition. Appears with depressive symptoms. Arousal/Alertness Alert Memory Decreased recall of recent events (decreased ability to provide timelines) Current communication Appears Intact Orientation Oriented X4 (person, place, time, situation) Following Commands Follows all commands and directions without difficulty Sensation Sensation Comments neuropathy in R LE, intact in bilateral UE Reach/Grasp RUE Reach (able to reach across midline from supine to assist with bed mobility, impaired in sitting requiring increased proximal support to attempt.) RUE Grasp (functional plate glass installer strength) LUE Grasp (functional plate glass installer strength) Bed Mobility 1 Bed Mobility From 1 Rolling right;Rolling left Bed Mobility Type 1 To and from Bed Mobility to 1 Supine Level of Assistance 1 Minimum Assist;Moderate Assist LUE Assessment LUE Comments AROM available in supine WFL, MMT grossly 4/5 but SH and ELB extension insufficient with support of UB at bedside. RLE Assessment RUE Comments AROM available in supine WFL, MMT grossly 4/5 but SH and ELB extension insufficient with support of UB at bedside. OT Treatment/Exercise Comments OT Treatment/Exercise Comments Educated pt on more active pressure reduction strategy. Pt prefers resting on R side, placing increased pressure on R lateral foot. Safe Environment End of Therapy Session Safe Environment End of Therapy Session Patient left supine in bed;RN notified;Call light within reach;Overbed table within reach (positioned HOB 30, prevalon on R foot) Assessment Prognosis Good Problem List Decreased upper extremity range of motion;Decreased upper extremity strength;Decreasedcognition;Decreased endurance;Decreased balance;Decreased functional mobility;Decreased ADL independence;Decreased IADL independence;Decreased trunk control for functional activities;Poor/Decreased fu nctional positioning;Decreased upper extremity function;Decreased frequency/variety of movement;Skin integrity;Edema Problem List Comments Pt at high risk for permanent loss of ADL function, progressive skin breakdown, loss of quality of life. Barriers to Discharge Current Mobility Status;Home environment challenged Plan Plan Plan of care initiated Recommendation/Plan OT Recommendation Inpatient Rehab Facility Patient at high risk for Prolonged dependence for self care tasks;Developing secondary complications: poor health management;Developing impaired skin integrity;Injury at home as patient has not returned to prior level of function;Injury due to balance deficits;Injury due to impaired cognition;Injury due to reduced functional status;Injury due to decreased ability to care for self;Readmission;Cognitive decline due to decreased social participation Recommend Inpatient Rehab/Acute Rehab due to Not at baseline due to impaired ability to complete ADLs;Impaired ability to complete functional mobility;Requires greater than 25% physical assistance with most mobility tasks;Requires greater than 25% physical assistance with most ADL tasks;Requires multiple therapy disciplines to address functional deficits OT Recommendation/Plan Comments 32 yo with severe functional decline, at high risk for permanent dependence. Once medically stable for discharge, pt will benefit from intensive therapy, IRF to progress toward her prior level of transfers, ability to propel w/c, ability to leave home, ADL independence. OT Frequency during current admission 5-7x/wk Treatment/Interventions during current admission ADL/IADL retraining;Balance Training;Bed mobility;Compensatory technique education;Endurance training;Equipment eval/education;Functional activity;Functional mobility training;Functional transfer training;Neuromuscular re-education;Positioning;Positioning equipment;Strengthening;Therapeutic activity;Therapeutic exercise;Upper extremity motor function/functional skills (pressure management) OT Equipment Recommended Hospital bed (bariatric stephany) OT - Next Appointment 05/05/23 OT Evaluation Complete Yes Pt will benefit from skilled OT in order to increase safety and independence with ADL/IADls, decrease fall risk, promote healing, return to PLOF, decrease pain, and increase quality of life. Educated the patient on the role of occupational therapy, plan of care, goals of therapy, rationalefor progressing bed mobility/ADLs, and use of call light/staff assist. Pt with fair understanding. Cotx with LPT for safety of patient and staff due to current diagnosis, medical status/acute condition, bariatric status, limited stability on bariatric low loss air mattress. Multi-Disciplinary Problems (from Occupational Therapy) Active Problems Problem: [place] [facility] [place] Start Date: 04/21/23 Goal Start Date Expected End Date End Date OT [facility] 1 04/21/23 05/05/23 -- Goal Details: Pt will complete supine to sit EOB with MOD assist. Goal Start Date Expected End Date End Date OT [facility] 2 04/21/23 05/05/23 -- Goal Details: Pt will complete grooming from EOB with G- balance, bimanual UE in midline, SBA with set up. Goal Start Date Expected End Date End Date OT [facility] [place] 3 04/21/23 05/05/23 -- Goal Details: Pt will complete anterior hygiene for incontinence management from bed level with MINassist, for increased skin integrity. Goal Start Date Expected End Date End Date OT [facility] 1 04/21/23 04/28/23 -- Goal Details: Pt will be independent with bilateral resistive band UB strengthening HEP Goal Start Date Expected End Date End Date OT [facility] 2 04/21/23 04/28/23 -- Goal Details: Pt will demonstrate independent initiation of scheduled bed level pressure management. * Gene Gay, PT - 04/21/2023 11:10 AM CDT Physical Therapy 04/21/23 1109 General Chart Reviewed Yes Session Type Evaluation PT Received On 04/21/23 Safe Environment Patient found in supine;Arm band checked;Session completed bedside Subjective Agreeable to Therapy Subjective Comment Pt agrees to sit on EOB, now, after she is cleaned up and assisted with nicole-care, as Pt has been incontinent of bowel in the bed. Additional Pertinent History The Pt is in NE-[id number], now. The Pt was admitted on 04/15/23 for acute diastolic CHF. The Pt has PMH of: L LE AKA, morbid obesity, acute osteomyelitis of R foot/calcaneus. Pt has orders for Podiatry Consult for her R foot. Hx of CKD, PVD. Please see H and P for more details of Pt's PMH. Family/Caregiver Present No Physical Therapy-Patient Goal The Pt is interested in being discharged to a Rehab Facility to get stronger before she returns home. The Pt is also interested in a Hospital bed for home at time of discharge. Current Functional Status PT Functional Mobility Pt needs Min./Mod A +2 and use of bed rail to roll for nicole-care by the PCT.Pt needs Max A +2 for supine <-> sitting on EOB. Able to sit on EOB with Min A to CGA to close supervision while working on seated hygiene activities with OTR. Needs Max A +2 for sitting to supine and total assist of 2 to boost up in bed with the hover abi pad inflated. Precautions Precautions Bed/Chair Alarm;Fall risk;Other (Comment) (skin itegrity, pressure wounds, HOB >30 degrees) Weight Bearing Restrictions Yes RLE Weight Bearing NWB (with current level of wound infection/vascular involement.) Precaution Comments Prevalon boot R LE in bed. Hosptial shoe cover used on R foot when Pt was sitting on EOB. We will need to check with Podiatry for clarification of R foot WB'ing status after Pt isseen by International Marketing Manager. Pt has been sleeping on an Air Mattress at home. Sits up on edge of air mattress for meals. Home Living Type of Home Condo/Townhome/[place] Home Layout Able to live on main level with bedroom/bathroom Home Access Level entry Bathroom Equipment Commode (Pt has drop arm BSC.) Home Mobility Equipment-Available Sliding Board;Wheelchair-manual Home Mobility Equipment-Currently Using Wheelchair-manual Additional Comments Pt reportrs that, when she first went home after being discharged from [facility], per brother could help [place] [facility] Now she has not been out of bed in a while. Prior Function Level of [place] Needs assistance with ADLs;Needs assistance with functional transfers;Dependent with homemaking Lives With Family;Mother;Other (Comment) Receives Help From Family Driving No Fall within the last 6 months Yes Prior Function Comments Pt states her [facility], then shetransferred to [facility] before she was discharged home. Please see O.T. notes for more details. (bed bound last 2 wks. After L AKA, went to [facility]. No prosthesis. Brother was lifting pt to BS 1-2x day & to w/c. Pt was able to propel w/c. has slide board for car transfers. unsure last time used. Gets assist for incontinence, bedbath.) Activity Tolerance Endurance Tolerates 10 - 20 min activity with multiple rests Activity Tolerance Comments Pt encouraged to rest, as needed. Pain Assessment Pain Assessment Persaud-Pizarro FACES Persaud-Pizarro FACES Pain Rating 0 Pain Radiating Towards Pt has ulcers to R foot, and is in Prevaolon boot. Pt appears to very teary eyed, at times, but reports it is not due to pain. Pt shows minimal guarding when R foot/lower leg is re-positioned. Cognition Arousal/Alertness Alert Attention Span Attends with cues to redirect Memory Decreased recall of recent events Current communication Appears Intact Orientation Oriented X4 (person, place, time, situation) Following Commands Follows all commands and directions without difficulty Compliance/Behavior Fearful Endurance Deficit Endurance Deficit Yes Endurance Deficit Description Pt is on O2 now per NC at 4L. Pt does not use O2 at home. Pt also hasfoley cath, now. Balance Balance Yes Static Sitting Balance Static Sitting-Balance Support Bilateral upper extremity supported;Feet supported (Pt has old L:AKA. Only R foot is on the floor now with shoe cover in place.) Static Sitting-Sitting Surface Bed Static Sitting-Level of Assistance Close supervision;Contact guard;Minimum assistance RLE Assessment RLE Assessment X RLE Comments Pt is in R LE Prevalon boot and has dressing to R foot/ankle. Pt has fair+ R LE hip/knee strength, in available ROM. No real pain in R LE, now. LLE Assessment LLE Assessment X LLE Comments Pt has old L LE AKA. Pt has fair-minus L LE hip strength. PT Treatment/Exercise Comments PT Treatment/Exercise Comments Please see O.T. notes for more details of Pt's B UE strength. Pt hasfairly good B UE strength, in available ROM. No pain in UE's, now. Other Comments Other PT Comments This Therapist and OTR and PCT all present for bed mobility, changing bed pad, and nicole-care. Pt worked on seated and supine ex's, as well. Safe Environment End of Therapy Session Safe Environment End of Therapy Session Patient left supine in bed;RN notified;Call light within reach;Overbed table within reach;Bed in lowest position with wheels locked;Bed rails up per protocol (Prevalon boot on R LE. Head of bed elevated.) Assessment Prognosis Good (Pending continued resolution of Pt's multiple medical problems.) Problem List Decreased strength;Decreased endurance;Impaired balance;Decreased mobility;Obesity;Decreased skin integrity;Decreased ADLs Barriers to Discharge Current Mobility Status;Home environment challenged Plan Plan Plan of care initiated Recommendation/Plan PT Recommendation/Plan (S) Inpatient Rehab Facility Patient at high risk for Falls;Readmission;Injury due to decreased ability to care for self;Injury due to reduced functional status;Injury due to balance deficits;Injury at home as patient has not returned to prior level of function Recommend Inpatient Rehab/Acute Rehab due to Highly motivated to participate in therapy;Not at baseline due to impaired ability to complete ADLs;Impaired ability to complete functional mobility;Likely to return to the community at discharge with support system in place;Requires greater than 25% physical assistance with most mobility tasks;Requires greater than 25% physical assistance with most ADL tasks;Requires multiple therapy disciplines to address functional deficits;Patient and caregiver require specialized skilled training due to new level of function/diagnosis PT Frequency during current admission 3-5x/wk Treatment/Interventions during current admission Balance Training;Bed mobility;Functional activity;Therapeutic activity;Therapeutic exercise (Will need to check with International Marketing Manager to see about future R LE WB'ing precautions/restrictions.) PT Equipment Recommended (S) Hospital bed;Other (Comment) (Family may also benefit from Stephany Lift, but the home layout will need to be assessed first, and Family will need to be trained. We will need to see if stephany lift sling will work since Pt has L FRENCH AKA. ) Progress during current admission Slow progress, medical status limitations PT - Next Appointment 05/05/23 PT Evaluation Complete Yes Multi-Disciplinary Problems (from Physical Therapy) Active Problems Problem: Transfers Start Date: 04/22/23 Goal Start Date Expected End Date End Date STG - Patient to transfer to and from sit to supine 04/22/23 05/05/23 -- Goal Details: With Min A +2, and cues. Goal Start Date Expected End Date End Date STG - Patient will perform bed mobility 04/22/23 05/05/23 -- Goal Details: With bed rails, with Min A +1, and cues. Problem: Balance Start Date: 04/22/23 Goal Start Date Expected End Date End Date STG - Maintains static sitting balance with upper extremity support 04/22/23 05/05/23 -- Goal Details: For 15 minutes, while sitting on EOB and working on seated ex's and seated daily activities, with supervision of 1, and cues. Pt to progress to seated activities without UE support, andadvance to seated resistive band ex's at bedside. Problem: PT Misc Start Date: 04/22/23 Goal Start Date Expected End Date End Date PT LTG - Misc 1 04/22/23 05/05/23 -- Goal Details: The Pt will perform Therapeutic AROM ex's for B UE's and B LE's, in supine or in sitting, 1 set of 10 reps, daily, with cues, in pain-free ROM, and with Therapeutic Rest Breaks, as needed. The Pt will progress to strengthening ex's for B UE's, for biceps and triceps, with light-resistance exercise bands, as able. Goal Start Date Expected End Date End Date PT LTG - Misc 2 04/22/23 05/05/23 -- Goal Details: The Pt will advance to bed <-> drop arm cardiac chair sliding board transfers, with Mod A +2, as cedric., with care taken to avoid shearing forces on Pt's buttocks and limited WB'ingthru Pt's R LE, while R foot rests on the floor for sliding board transfer. (Pt may need stephany liftpad in chair before Pt gets up to cardiac chair. However, as Pt has old L AKA, if stephany lift is used, care to be taken). Educated the patient to the role of physical therapy, plan of care, goals of therapy, rationale forprogressing mobility and home exercise program. Patient was left with all needs met and equipment intact. Mobility and ADL status posted within medical record. RN (Cherise) made aware. PCT present for portion of P.T. and O.T. Eval. * Dante Stubbs MD - 04/21/2023 10:12 AM CDT Progress Note Infectious Diseases Chief complaint: Right calcaneal bone osteomyelitis. Diabetic foot infection. Subjective Minimal pain to the right heel area. No fevers Objective Vitals: 04/21/23 0700 BP: 129/84 Pulse: 99 Resp: 18 Temp: 36.6 ??C (97.9 ??F) SpO2: 98% Constitutional: Alert, oriented x3. In no distress. Eyes: Sclerae anicteric, no conjunctival erythema Lungs: Clear breath sounds, no crackles, no wheezes Heart: Regular rate and rhythm, no murmurs Abdomen: Bowel sounds present, soft, nontender Skin: Warm and dry, No rashes Extremities: Right heel plantar aspect necrosis no change. Still has some foul smell to it. Soft Neuro: No motor deficit Psych: No anxiety Current Medications: Current Facility-Administered Medications Medication Dose Route Frequency Provider Last Rate Last Admin acetaminophen (TYLENOL) tablet 650 mg 650 mg oral Q4H PRN Amilcar Hancock MD sodium chloride 0.9% flush 0.5-20 mL 0.5-20 mL intra-catheter Q8H [facility] Amilcar Hancock MD 10 mL at04/21/23 0559 And sodium chloride 0.9% flush 0.5-20 mL 0.5-20 mL intra-catheter PRN Amilcar Hancock MD And Carrier Fluids for Secondary Infusion - 0.9% Sodium Chloride 30 mL intravenous PRN Amilcar Hancock MD cefTRIAXone (ROCEPHIN) 2,000 mg/20 mL in sterile water (premix) 2,000 mg 2,000 mg intravenous Q24H [facility] Dante Stubbs MD 2,000 mg at 04/21/23 0909 DAPTOmycin (CUBICIN) 50 mg/mL sodium chloride 0.9% 700 mg 700 mg intravenous Q24H Amilcar Hancock MD 700 mg at 04/20/23 1559 dextrose (GLUTOSE) 40 % gel 15 g 15 g oral Q15 Min PRN Amilcar Hancock MD Or dextrose (D10W) 10% bolus 250 mL 250 mL intravenous Q15 Min PRN Amilcar Hancock MD ergocalciferol (VITAMIN D) capsule 50,000 Units 50,000 Units oral Weekly Golden Kidd MD 50,000 Units at 04/17/23 1437 folic acid (FOLVITE) tablet 1 mg 1 mg oral Daily Hien Rabago MD 1 mg at 04/21/23 0908 furosemide (LASIX) 10 mg/mL injection 80 mg 80 mg intravenous BID DIURETIC Amilcar Hancock MD 80 mg at 04/21/23 0908 glucagon injection 1 mg 1 mg intramuscular Q30 Min PRN Amilcar Hancock MD heparin 5,000 unit/mL injection 7,500 Units 7,500 Units subcutaneous Q8H [facility] Amilcar Hancock MD 7,500 Units at 04/21/23 0559 HYDROmorphone (DILAUDID) injection 0.5 mg 0.5 mg intravenous Q4H PRN Hien Rabago MD 0.5 mgat 04/18/23 1818 insulin glargine (LANTUS, SEMGLEE) 100 unit/mL injection 22 Units 0.15 Units/kg subcutaneous Nightly Amilcar Hancock MD 22 Units at 04/19/23 2151 insulin lispro (HumaLOG, ADMELOG) 100 unit/mL injection 0-4 Units 0-4 Units subcutaneous Nightly Amilcar Hancock MD insulin lispro (HumaLOG, ADMELOG) 100 unit/mL injection 0-5 Units 0-5 Units subcutaneous TID with meals Amilcar Hancock MD insulin lispro (HumaLOG, ADMELOG) 100 unit/mL injection 7 Units 0.05 Units/kg subcutaneous TID withmeals Amilcar Hancock MD 7 Units at 04/16/23 1801 ipratropium-albuteroL (DUO-NEB) 0.5-2.5 mg/3 mL nebulizer solution 3 mL 3 mL nebulization Q4H PRN (RT) Darell Paniagua MD metroNIDAZOLE (FLAGYL) tablet 500 mg 500 mg oral TID Dante Stubbs MD 500 mg at 04/21/23 0908 ondansetron ODT (ZOFRAN-ODT) disintegrating tablet 4 mg 4 mg oral Q6H PRN Amilcar Hancock MD Or ondansetron (ZOFRAN) injection 4 mg 4 mg intravenous Q6H PRN Amilcar Hancock MD sodium chloride (OCEAN) 0.65 % nasal spray 1 spray 1 spray each nostril Q2H PRN Darell Paniagua MD sodium chloride 0.9% flush 5-10 mL 5-10 mL intra-catheter Q12H [facility] Hien Rabago MD 10 mL at04/21/23 0920 sodium chloride 0.9% flush 5-20 mL 5-20 mL intra-catheter PRN Hien Rabago MD spironolactone (ALDACTONE) tablet 25 mg 25 mg oral BID DIURETIC Dallas Peña MD 25 mg at 04/21/23 0908 thiamine (VITAMIN B-1) tablet 50 mg 50 mg oral Daily Hien Rabago MD 50 mg at 04/21/23 0908 No Known Allergies Social History Tobacco Use Smoking status: Never Smokeless tobacco: Never Substance and Sexual Activity Drug use: Never Sexual activity: None Alcohol Use: Not on file History reviewed. No pertinent family history. Lab Results Component Value Date HGBA1C 6.5 (H) 04/16/2023 TSH 4.01 04/16/2023 TIBC 186 (L) 04/16/2023 INR 1.3 (H) 04/15/2023 DDIMER 4,470 (H) 04/19/2023 CHOLHDL 3 04/17/2023 HCT 27.5 (L) 04/20/2023 MCH 26.3 (L) 04/20/2023 MCV 87.3 04/20/2023 MPV 9.0 (L) 04/20/2023 HDL 38 (L) 04/17/2023 RBC 3.15 (L) 04/20/2023 RDW 11.7 12/13/2017 WBC 24.6 (H) 04/20/2023 Assessment/Plan 1. Right diabetic foot infection with osteomyelitis of the calcaneal bone. Patient also has extensive necrosis of contiguous soft tissue no drainage at this point. Patient was seen by vascular surgery and recommended above-knee amputation. Patient refused amputation. Will recommend podiatry to see for debridement of necrotic tissue and eventually home IV antibiotics. 2. Leukocytosis with white count trending down slightly at 24,000. Suspect secondary to ongoing soft tissue infection as well as osteomyelitis. Continue IV antibiotics and plan debridement 3. Type 2 diabetes blood sugars ranging between 70 -140 4. Obesity with BMI of 49 5. Acute kidney injury improved creatinine at 1.5 Dante Stubbs MD [facility] Infectious Disease [place] Office [phone] * Dallas Peña MD - 04/21/2023 9:57 AM CDT Renal Progress Note Admit Date: 04/15/2023 Days: 6 Reason for Follow up: Acute on chronic kidney failure Clinical Course/New Symptoms Denies any increasing shortness of breath, nausea vomiting. Continues to be on oxygen via nasal cannula. Urine output of 6850 mL yesterday. Data Vitals: 04/21/23 0700 BP: 129/84 Pulse: 99 Resp: 18 Temp: 36.6 ??C (97.9 ??F) SpO2: 98% f breath Exam Constitutional: alert and oriented. Appears well-developed and well-nourished, in no distress. HighBMI Head: Normocephalic. Eyes: No icterus, extraocular movements normal Neck: Neck supple. Cardiovascular: Normal rate and regular rhythm. No murmur heard. Pulmonary/Chest: Diminished breath sounds bilaterally, on oxygen via nasal cannula. Abdominal: Soft. Musculoskeletal: Right lower extremity edema. Heel ulcer is visible. Neurological: alert and moves all 4 limbs. Skin: No rashes Intake/Output Summary (Last 24 hours) at 04/21/2023 0957 Last data filed at 04/21/2023 0920 Gross per 24 hour Intake 70 ml Output 6850 ml Net -6780 ml MEDICATIONS FOR CURRENT ENCOUNTER: SCHEDULED MEDICATIONS: Scheduled Medications Medication Dose Route Frequency cefTRIAXone (ROCEPHIN) 2,000 mg/20 mL in sterile water (premix) 2,000 mg 2,000 mg intravenous Q24H [facility] DAPTOmycin (CUBICIN) 50 mg/mL sodium chloride 0.9% 700 mg 700 mg intravenous Q24H ergocalciferol (VITAMIN D) capsule 50,000 Units 50,000 Units oral Weekly folic acid (FOLVITE) tablet 1 mg 1 mg oral Daily furosemide (LASIX) 10 mg/mL injection 80 mg 80 mg intravenous BID DIURETIC heparin 5,000 unit/mL injection 7,500 Units 7,500 Units subcutaneous Q8H [facility] insulin glargine (LANTUS, SEMGLEE) 100 unit/mL injection 22 Units 0.15 Units/kg subcutaneous Nightly insulin lispro (HumaLOG, ADMELOG) 100 unit/mL injection 0-4 Units 0-4 Units subcutaneous Nightly insulin lispro (HumaLOG, ADMELOG) 100 unit/mL injection 0-5 Units 0-5 Units subcutaneous TID with meals insulin lispro (HumaLOG, ADMELOG) 100 unit/mL injection 7 Units 0.05 Units/kg subcutaneous TID withmeals metroNIDAZOLE (FLAGYL) tablet 500 mg 500 mg oral TID sodium chloride 0.9% flush 0.5-20 mL 0.5-20 mL intra-catheter Q8H [facility] sodium chloride 0.9% flush 5-10 mL 5-10 mL intra-catheter Q12H [facility] spironolactone (ALDACTONE) tablet 25 mg 25 mg oral BID DIURETIC thiamine (VITAMIN B-1) tablet 50 mg 50 mg oral Daily CONTINUOUS MEDICATIONS: Current Facility-Administered Medications Medication Dose Route Frequency Last Admin PRN MEDICATIONS: PRN Medications Medication Dose Route Frequency Last Admin acetaminophen (TYLENOL) tablet 650 mg 650 mg oral Q4H PRN sodium chloride 0.9% flush 0.5-20 mL 0.5-20 mL intra-catheter PRN And Carrier Fluids for Secondary Infusion - 0.9% Sodium Chloride 30 mL intravenous PRN dextrose (GLUTOSE) 40 % gel 15 g 15 g oral Q15 Min PRN Or dextrose (D10W) 10% bolus 250 mL 250 mL intravenous Q15 Min PRN glucagon injection 1 mg 1 mg intramuscular Q30 Min PRN HYDROmorphone (DILAUDID) injection 0.5 mg 0.5 mg intravenous Q4H PRN 0.5 mg at 04/18/23 1818 ipratropium-albuteroL (DUO-NEB) 0.5-2.5 mg/3 mL nebulizer solution 3 mL 3 mL nebulization Q4H PRN (RT) ondansetron ODT (ZOFRAN-ODT) disintegrating tablet 4 mg 4 mg oral Q6H PRN Or ondansetron (ZOFRAN) injection 4 mg 4 mg intravenous Q6H PRN sodium chloride (OCEAN) 0.65 % nasal spray 1 spray 1 spray each nostril Q2H PRN sodium chloride 0.9% flush 5-20 mL 5-20 mL intra-catheter PRN My review of labs, imaging, notes and other tests is significant for Recent Labs Lab Units 04/20/23 0708 04/19/23 0744 04/18/23 0646 WBC K/cumm 24.6* 26.1* 26.9* HEMOGLOBIN g/dL 8.3* 9.3* 8.2* HEMATOCRIT % 27.5* 31.2* 26.1* PLATELETS K/cumm 538* 501* 572* . Recent Labs Lab Units 04/21/23 0739 04/20/23 1933 04/20/23 1608 04/20/23 0727 04/20/23 0708 04/19/23 0749 04/19/23 0744 04/18/23 0718 04/18/23 0646 SODIUM mmol/L -- -- -- -- 139 -- 139 -- 140 POTASSIUM PLASMA mmol/L -- -- -- -- 3.4 -- 3.6 -- 3.7 CHLORIDE mmol/L -- -- -- -- 107 -- 107 -- 109 CO2 mmol/L -- -- -- -- 28 -- 22 -- 24 CREATININE mg/dL -- -- -- -- 1.50* -- 1.70* -- 1.80* GLUCOSE mg/dL -- -- -- -- 89 -- 77 -- 137 POC GLUCOSE MONITOR mg/dL 78 70 70 < > -- < > -- < > -- CALCIUM mg/dL -- -- -- -- 7.8* -- 7.9* -- 7.7* ALBUMIN g/dL -- -- -- -- 1.3* -- 1.3* -- 1.7* PHOSPHORUS PLASMA mg/dL -- -- -- -- 3.4 -- 3.8 -- 4.3 < > = values in this interval not displayed. .No lab exists for component: COLORUA, CHARACTERUA, SPECGRAVUA, PHUA, PROTEINUA, BLOODUA, LEUKOCYTEUA, NITRITEUA, GLUCOSEUA, KETONEUA, BILIRUBINUA, UROBILINUA, WBCUA, RBCUA, EPITHUA, MUCUSUA, CASTUA,CRYSTALUA, BACTERIAUA, YEASTUA, TRICHUA XR Chest 1 View EXAM DESCRIPTION: XR CHEST 1 VIEW REASON FOR STUDY: Shortness of breath. Elevated D-dimer. TECHNIQUE: AP semi upright radiographic view(s) of the chest. COMPARISON: Chest radiograph 04/19/2023 04/17/2023 FINDINGS: LUNGS: Increase in the moderate to severe bilateral airspace opacities when compared to 04/19/2023. No large pleural effusion. No pneumothorax. Moderate lordotic positioning. HEART/MEDIASTINUM: Heart projects enlarged, likely accentuated by technique. Grossly stable mediastinal contours. LINES/TUBES: Right PICC tip projects over the right brachiocephalic vein, unchanged. BONES: No acute osseous abnormality. IMPRESSION: Moderate to severe bilateral airspace opacities have increased when compared to 04/19/2023. Moderate cardiomegaly appears to have slightly increased in size although evaluation is limited by lordotic positioning. Right PICC tip projects over the right brachiocephalic vein, unchanged. THIS IS AN ELECTRONICALLY VERIFIED FINAL REPORT 04/20/2023 2:21 PM - Electronically signed by Amor MAURER T: Report ID: [id number] Reading Location: [id number] [place] Pulmonary Perfusion Imaging EXAM DESCRIPTION: [place] PULMONARY PERFUSION IMAGING RADIOPHARMACEUTICAL: 5 mCi Tc-99m MAA via a right arm IV site REASON FOR STUDY: Chest pain. Elevated D-dimer. Shortness of breath. TECHNIQUE: Limited multi-planar perfusion scintigrams were obtained. COMPARISON: Chest radiograph 04/20/2023, perfusion lung scan 04/15/2020 FINDINGS: Limited perfusion images obtained in the anterior, anterior oblique, and lateral projection. No posterior or posterior oblique projections were obtained. There is enlargement of the cardiomediastinal silhouette. Heterogeneous deposition of the radiotracer to both lungs. No large segmental perfusion defect is seen to suggest pulmonary embolism. Overall, the pattern of perfusion is not significantly changed when compared to the prior study. IMPRESSION: 1. Limited perfusion lung scan with a low probability for pulmonary embolism. THIS IS AN ELECTRONICALLY VERIFIED FINAL REPORT 04/20/2023 2:18 PM - Electronically signed by Amor MAURER T: Report ID: [id number] Reading Location: [id number] Assessment and Plan Active Problems: Acute diastolic congestive heart failure (CMS/HCC) (HCC) Type II diabetes mellitus with foot ulcer (HCC) Hypertension Acute respiratory failure with hypoxia (CMS/HCC) (HCC) Diarrhea Acute kidney failure (HCC) Elevated troponin Osteomyelitis (HCC) Wounds, multiple Resolved Problems: No resolved hospital problems. BOBBY on CKD in the setting of significant volume overload/pulmonary edema, unclear whether has obstructive uropathy as well, will check a postvoid residual. Does appear quite volume overloaded and will initiate IV furosemide. Obtaining a urinalysis with microscopy as well as a spot urine protein to c reatinine ratio as albumin is 1.8, likely has significant proteinuria. May need to order autoimmuneserology if active UA sediment. Echocardiogram is pending, previous echo with adequate EF and mild diastolic dysfunction. Obtaining a renal ultrasound as well. No acute need for dialysis and hopefully to respond to diuretics. Does have significant leukocytosis may have underlying infection, blood cultures pending, initiated on empiric antibiotics as well. 04/16/2023 Denies any urinary symptoms. Continue furosemide 80 mg IV b.i.d.. Has sub nephrotic proteinuria was1.8 g per g as per a spot sample. Continues to have significantly high leukocytosis. On antibiotics. Urine output noted, probably incomplete. Anemia. Will check iron profile, B12 and folate. Monitor urine output accurately. 2D echo is pending. 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 Noted vascular surgery recommendations regarding a rightabove-knee amputation which the patient declines. 04/17 Serum creatinine down to 2.1 today. Continue diuretics. Serum albumin 1.3. Multifactorial hypoalbuminemia. Non nephrotic range albuminuria previously unlikely primarily secondary to chronic inflammation. Reported diabetic retinopathy with potential need for intervention. Would hold off on prophylactic 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 for now in the setting of hypoalbuminemia. Plans are for PICC line with prolonged antibiotics for attempted limb salvage. Prognosis is extremely guarded. Started on folate and ironreplacement and will add vitamin-D replacement as well given deficiency. 04/18 Creatinine is improving. Down to 1.80. K 3.7, UOP 5000 ml yesterday. Improved creatinine with diuresis. BP 147/77 but variable and lower at times. 2 D Echo with normal EF but with diastolic dysfunction. Likely diabetic kidney disease in the setting of longstanding diabetes as well as diabetic retinopathy. Continue diuresis with furosemide at current dose of 80 mg IV b.i.d.. He is diuresing well. On antibiotics as per primary team/ID/vascular for the diabetic foot infection. She does not have a good appetite and this may be due to her ongoing infection. Likely not related to diminished renal function. Avoid hypotension and nephrotoxins. 04/19/23 Urine output 4-5 0 mL yesterday. Blood pressure 143/78 mmHg. Potassium 3.6, creatinine 1.70 (improved from 1.80 yesterday). Albumin is 1.3. On furosemide 80 mg IV q.12. Adding spironolactone 25 mg p.o. b.i.d.. Will try convert to oral furosemide in the near future. Significant hypoalbuminemia, likely effect of long-term malnutrition, chronic inflammation/infection, proteinuria. Improving nutrition will help but may not be possible without complete treatment of the infection. Monitor electrolytes and adjust spironolactone accordingly. 04/20/2023 Impressive diuresis with a combination of intravenous furosemide and oral spironolactone. Made 6.4 L of urine yesterday. Creatinine continues to decline and is down to 1.50 today. Blood pressure is reasonable at 139/76 mmHg. No hypotension at this time. Will continue current regimen with intravenous furosemide and oral spironolactone and hopefully convert to oral furosemide in the next few days. 04/21/2023 Urine output of 6850 mL yesterday. Blood pressures adequately controlled. Labs from today are stillpending. Continues to need 4 L of oxygen via nasal cannula. Serum albumin is exceedingly low at 1.3. Likely multifactorial including malnutrition, chronic infection, albuminuria contributing to the hy poalbuminemia. CXR continues to show moderate to severe bilateral airspace opacities have increasedwhen compared to 04/19/2023. Will give her a few doses of albumin in the setting of significant hypoalbuminemia. Will need improvement in nutrition, treatment of infection, for the albumin levels to improve. Continue current dose of intravenous furosemide with oral spironolactone since she is achieving significant diuresis with his combination. Chest x-ray continued to show moderate to severe bilateral airspace opacities and hence will continue diuresis. Pulmonary is on board. Thank you. Dallas Peña MD [facility] Nephrology and Hypertension Office: [phone] * Darell Paniagua MD - 04/21/2023 6:00 AM CDT Progress Note Patient: Leeroy Canales ( - 1990) is a 32 y.o. female. Visit Date: 04/15/2023 Chief Complaint Patient presents with Shortness of Breath History of Present Illness: The patient is pleasant 32-year-old female who is bed-bound. 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 She is been taking care of by her mom and her sister. She does have history of diabetes. She does not smoke. She presented the emergency room complaining of progressive shortness of breath and cough for the past week or 2. Patient also was having trouble with a wound to her right foot and she is been having nausea. Her initial lab work showed creatinine 2 point 7, alk-phos 381 and albumin 1.8, ABGs showed pH 7.40, pCO2 36 and PO2 49 on room air, her WBC was 9[address]. Urinalysis showed UTI. Chest x-ray showed Findings are suggestive of pulmonary edema. Her V/Q scan was negative, her D-dimer was elevated. Patient was started on oxygen 4 liter/minute. She does not use oxygenat home or inhaler. She was admitted to the hospital and consultation was requested for further evaluation and management. Upon evaluating the patient, her attitude was depressed or flat. She does report slight postnasal drainage. She does report PND and orthopnea. She denies any history of hemoptysis, epistaxis, hematemesis, melena, hematochezia, diarrhea but constipation. She denies any history syncope or seizure activity. She denies history of fever or chills. She denies any contact with sick people or exposure toTB. She is up-to-date with COVID-19 vaccine. She lives in [place], [place]. She does havea cat at home who does not sleep in her bed. Patient does not ambulate. She was started on cefepime, daptomycin for treatment of possible osteomyelitis. 04/16 -Patient was seen and examined. Lab data were reviewed. Chest x-ray was reviewed by me. medication list was reviewed and adjusted as necessary. Patient is hemodynamically stable. Patient is afebrile.No event overnight. Questions by the patient about the care, plan, medication and possible side effects/ complication of treatment/ medication/ procedures were discussed with patient/ caring agents/ family in details to their satisfaction and understanding. Patient case discussed with the nurse caring for the patient. Patient is doing fair. Patient is feeling okay. She slept okay overnight. Her fluid balance was-400mL. No bowel movement was recorded. She is oxygenating adequately on 4 liter/minute of oxygen. 04/17 -Patient was seen and examined. Lab data were reviewed. Chest x-ray was reviewed by me. medication list was reviewed and adjusted as necessary. Patient is hemodynamically stable. Patient is afebrile.No event overnight. Questions by the patient about the care, plan, medication and possible side effects/ complication of treatment/ medication/ procedures were discussed with patient/ caring agents/ family in details to their satisfaction and understanding. Patient case discussed with the nurse caring for the patient. Patient is doing fair. Patient is feeling better. She is breathing easier. She slept okay overnight. Her oxygenation is adequate on 4 liter[place] [address], albumin 1.3, fluid balance was-1 L. She did have bowel movement overnight. 04/18 -Patient was seen and examined. Lab data were reviewed. Chest x-ray was reviewed by me. medication list was reviewed and adjusted as necessary. Patient is hemodynamically stable. Patient is afebrile.No event overnight. Questions by the patient about the care, plan, medication and possible side effects/ complication of treatment/ medication/ procedures were discussed with patient/ caring agents/ family in details to their satisfaction and understanding. Patient case discussed with the nurse caring for the patient. Patient is doing fair. Patient is unchanged. She slept very good overnight. She is oxygenating adequately on 2-4 liter/minute of oxygen. Her fluid balance was - 3 L. She did have bowel movement overnight. Albumin [place] 1.3[place] [address]. 04/19 I saw the patient this morning and she was lying in bed and kept her head covered for most of the conversation. She reports her breathing is significantly improved. She has a minimal cough and deniesany sputum production or wheezing. She is afebrile and remains on 4 L of supplemental oxygen with saturations in the mid 90s. Labs are pending this morning but she has had continued improvement in renal function with significant diuresis 04/21 -Patient was seen and examined. Lab data were reviewed. Chest x-ray was reviewed by me. medication list was reviewed and adjusted as necessary. Patient is hemodynamically stable. Patient is afebrile.No event overnight. Questions by the patient about the care, plan, medication and possible side effects/ complication of treatment/ medication/ procedures were discussed with patient/ caring agents/ family in details to their satisfaction and understanding. Patient case discussed with the nurse caring for the patient. Patient is doing fair. Patient is feeling okay. She is oxygenating adequately on 4 liter/minute of oxygen. [place] [address], albumin is 1.3. Her fluid balance was-5400 mL. She did have bowel movement overnight. Past Medical History: Past Medical History: Diagnosis Date CHF (congestive heart failure) (CMS/HCC) (HCC) CKD (chronic kidney disease) Diabetes mellitus (HCC) Hx of AKA (above knee amputation) (CMS/HCC) (HCC) Left Hypertension Surgical History: Past Surgical History: Procedure Laterality Date ABOVE KNEE LEG AMPUTATION Left Current Medications: Current Facility-Administered Medications Medication Dose Route Frequency Provider Last Rate Last Admin acetaminophen (TYLENOL) tablet 650 mg 650 mg oral Q4H PRN Amilcar Hancock MD sodium chloride 0.9% flush 0.5-20 mL 0.5-20 mL intra-catheter Q8H Amilcar Vee MD 10 mL at04/21/23 0559 And sodium chloride 0.9% flush 0.5-20 mL 0.5-20 mL intra-catheter PRN Amilcar Hancock MD And Carrier Fluids for Secondary Infusion - 0.9% Sodium Chloride 30 mL intravenous PRN Amilcar Hancock MD cefTRIAXone (ROCEPHIN) 2,000 mg/20 mL in sterile water (premix) 2,000 mg 2,000 mg intravenous Q24H Dante Fitzgerald MD 2,000 mg at 04/20/23 0905 DAPTOmycin (CUBICIN) 50 mg/mL sodium chloride 0.9% 700 mg 700 mg intravenous Q24H Amilcar Hancock MD 700 mg at 04/20/23 1559 dextrose (GLUTOSE) 40 % gel 15 g 15 g oral Q15 Min PRN Amilcar Hancock MD Or dextrose (D10W) 10% bolus 250 mL 250 mL intravenous Q15 Min PRN Amilcar Hancock MD ergocalciferol (VITAMIN D) capsule 50,000 Units 50,000 Units oral Weekly Golden Kidd MD 50,000 Units at 04/17/23 1437 folic acid (FOLVITE) tablet 1 mg 1 mg oral Daily Hien Rabago MD 1 mg at 04/20/23 0905 furosemide (LASIX) 10 mg/mL injection 80 mg 80 mg intravenous BID DIURETIC Amilcar Hancock MD 80 mg at 04/20/23 1607 glucagon injection 1 mg 1 mg intramuscular Q30 Min PRN Amilcar Hancock MD heparin 5,000 unit/mL injection 7,500 Units 7,500 Units subcutaneous Q8H ERICK Amilcar Hancock MD 7,500 Units at 04/21/23 0559 HYDROmorphone (DILAUDID) injection 0.5 mg 0.5 mg intravenous Q4H PRN Hien Rabago MD 0.5 mgat 04/18/23 1818 insulin glargine (LANTUS, SEMGLEE) 100 unit/mL injection 22 Units 0.15 Units/kg subcutaneous Nightly Amilcar Hancock MD 22 Units at 04/19/23 2151 insulin lispro (HumaLOG, ADMELOG) 100 unit/mL injection 0-4 Units 0-4 Units subcutaneous Nightly Amilcar Hancock MD insulin lispro (HumaLOG, ADMELOG) 100 unit/mL injection 0-5 Units 0-5 Units subcutaneous TID with meals Amilcar Hancock MD insulin lispro (HumaLOG, ADMELOG) 100 unit/mL injection 7 Units 0.05 Units/kg subcutaneous TID withmeals Amilcar Hancock MD 7 Units at 04/16/23 1801 ipratropium-albuteroL (DUO-NEB) 0.5-2.5 mg/3 mL nebulizer solution 3 mL 3 mL nebulization Q4H PRN (RT) Darell Paniagua MD metroNIDAZOLE (FLAGYL) tablet 500 mg 500 mg oral TID Dante Stubbs MD 500 mg at 04/20/23 210 ondansetron ODT (ZOFRAN-ODT) disintegrating tablet 4 mg 4 mg oral Q6H PRN Amilcar Hancock MD Or ondansetron (ZOFRAN) injection 4 mg 4 mg intravenous Q6H PRN Amilcar Hancock MD sodium chloride (OCEAN) 0.65 % nasal spray 1 spray 1 spray each nostril Q2H PRN Darell Paniagua MD sodium chloride 0.9% flush 5-10 mL 5-10 mL intra-catheter Q12H [facility] Hien Rabago MD 10 mL at04/20/23 210 sodium chloride 0.9% flush 5-20 mL 5-20 mL intra-catheter PRN Hien Rabago MD spironolactone (ALDACTONE) tablet 25 mg 25 mg oral BID DIURETIC Dallas Peña MD 25 mg at 04/20/23 1607 thiamine (VITAMIN B-1) tablet 50 mg 50 mg oral Daily Hien Rabago MD 50 mg at 04/20/23 0905 Allergies: No Known Allergies Family History: History reviewed. No pertinent family history. Social History: Social History Tobacco Use Smoking status: Never Smokeless tobacco: Never Substance and Sexual Activity Drug use: Never Sexual activity: None Alcohol Use: Not on file Review of Systems: Review of Systems Constitutional: Positive for fatigue. Negative for appetite change, chills and fever. HENT: Negative for congestion, ear pain, mouth sores, tinnitus and voice change. Eyes: Negative for photophobia and pain. Respiratory: Positive for cough and shortness of breath. Negative for choking and stridor. Cardiovascular: Positive for leg swelling. Negative for chest pain and palpitations. Gastrointestinal: Negative for abdominal distention, abdominal pain and nausea. Endocrine: Negative for cold intolerance and polyphagia. Genitourinary: Negative for dysuria and hematuria. Musculoskeletal: Positive for gait problem. Negative for joint swelling. Skin: Negative for pallor and rash. Allergic/Immunologic: Negative for immunocompromised state. Neurological: Positive for weakness. Negative for seizures and facial asymmetry. Hematological: Negative for adenopathy. Does not bruise/bleed easily. Psychiatric/Behavioral: Negative for agitation and confusion. Physical Exam: Vitals: 04/20/23 1851 04/20/23 1930 04/20/23 2312 04/21/23 0337 BP: 146/80 135/72 153/78 BP Location: Left arm Left arm Left arm Patient Position: Pulse: 86 86 90 91 Resp: Temp: 36.7 ??C (98.1 ??F) 36.8 ??C (98.3 ??F) 36.7 ??C (98.1 ??F) TempSrc: Oral Axillary Axillary SpO2: 93% 96% 97% Weight: Height: Physical Exam Constitutional: General: She is not in acute distress. Appearance: She is well-developed. She is morbidly obese. She is ill-appearing. She is not diaphoretic. HENT: Head: Normocephalic and atraumatic. Neck: Thyroid: No thyromegaly. Cardiovascular: Rate and Rhythm: Normal rate and regular rhythm. Heart sounds: No murmur heard. No gallop. Pulmonary: Effort: Pulmonary effort is normal. No accessory muscle usage or respiratory distress. Breath sounds: No stridor. Examination of the right-upper field reveals decreased breath sounds. Examination of the left-upper field reveals decreased breath sounds. Examination of the right-lower field reveals rales. Examination of the left-lower field reveals rales. Decreased breath sounds and rales present. Chest: Chest wall: No tenderness. Abdominal: General: Bowel sounds are normal. There is no distension. Palpations: Abdomen is soft. Tenderness: There is no abdominal tenderness. Musculoskeletal: General: No tenderness or deformity. Normal range of motion. Cervical back: Normal range of motion and neck supple. Right lower leg: Edema present. Left lower leg: Edema present. Comments: Left BKA Lymphadenopathy: Cervical: No cervical adenopathy. Skin: General: Skin is warm and dry. Capillary Refill: Capillary refill takes less than 2 seconds. Findings: Lesion and rash present. No erythema. Neurological: Mental Status: She is alert and oriented to person, place, and time. Cranial Nerves: No cranial nerve deficit. Motor: Weakness present. Coordination: Coordination normal. Psychiatric: Mood and Affect: Mood is depressed. Behavior: Behavior normal. Data Reviewed Recent Results (from the past 24 hour(s)) Comprehensive metabolic panel Collection Time: 04/20/23 7:08 AM Result Value Ref Range Sodium 139 135 - 145 mmol/L Potassium, pl 3.4 3.3 - 4.9 mmol/L Chloride 107 97 - 110 mmol/L CO2 28 22 - 32 mmol/L Anion gap 4 2 - 15 mmol/L BUN 26 (H) 8 - 25 mg/dL Creatinine 1.50 (H) 0.60 - 1.10 mg/dL Glucose 89 70 - 199 mg/dL Calcium 7.8 (L) 8.5 - 10.3 mg/dL Bilirubin, total 0.3 0.1 - 1.2 mg/dL Protein, pl 5.2 (L) 6.5 - 8.5 g/dL Albumin 1.3 (L) 3.5 - 5.0 g/dL Alk phos 294 (H) 40 - 130 Units/L ALT 15 7 - 45 Units/L AST 12 10 - 45 Units/L CBC with auto differential Collection Time: 04/20/23 7:08 AM Result Value Ref Range WBC 24.6 (H) 3.8 - 9.9 K/cumm Hgb 8.3 (L) 11.9 - 15.5 g/dL Hct 27.5 (L) 35.6 - 45.5 % Plt 538 (H) 150 - 400 K/cumm MPV 9.0 (L) 9.1 - 12.3 fL RBC 3.15 (L) 3.90 - 5.20 M/cumm MCV 87.3 81.3 - 96.4 fL MCH 26.3 (L) 27.1 - 33.3 pg MCHC 30.2 (L) 32.3 - 35.7 g/dL RDW CV 17.2 (H) 11.1 - 14.9 % RDW SD 54.3 (H) 35.7 - 48.1 fL NRBC abs 0.02 (H) 0.00 - 0.01 K/cumm Magnesium Collection Time: 04/20/23 7:08 AM Result Value Ref Range Magnesium 1.8 1.4 - 2.5 mg/dL Phosphorus Collection Time: 04/20/23 7:08 AM Result Value Ref Range Phosphorus, pl 3.4 2.3 - 4.5 mg/dL Differential, auto Collection Time: 04/20/23 7:08 AM Result Value Ref Range Neutrophil abs 20.6 (H) 1.7 - 6.5 K/cumm Imm gran abs 0.4 (H) 0.0 - 0.1 K/cumm Lymphocyte abs 1.4 0.8 - 3.3 K/cumm Monocyte abs 1.8 (H) 0.2 - 0.8 K/cumm Eosinophil abs 0.4 0.0 - 0.5 K/cumm Basophil abs 0.1 0.0 - 0.1 K/cumm Neutrophil pct 83.9 % Imm gran pct 1.5 % Lymphocyte pct 5.9 % Monocyte pct 7.1 % Eosinophil pct 1.4 % Basophil pct 0.2 % eGFR Collection Time: 04/20/23 7:08 AM Result Value Ref Range eGFR 48 mL/min/1.73 m2 POCT glucose Collection Time: 04/20/23 7:27 AM Result Value Ref Range Glucose, POC 105 70 - 199 mg/dL Glucose comment 1 Use This Result Glucose comment 2 RN/MD Notified POCT glucose Collection Time: 04/20/23 11:12 AM Result Value Ref Range Glucose, POC 82 70 - 199 mg/dL Glucose comment 1 Use This Result Glucose comment 2 RN/MD Notified POCT glucose Collection Time: 04/20/23 4:08 PM Result Value Ref Range Glucose, POC 70 70 - 199 mg/dL Glucose comment 1 Use This Result Glucose comment 2 RN/MD Notified POCT glucose Collection Time: 04/20/23 7:33 PM Result Value Ref Range Glucose, POC 70 70 - 199 mg/dL Glucose comment 1 Use This Result Images: NM Pulmonary Perfusion Imaging Result Date: 04/15/2023 Narrative: EXAM DESCRIPTION: NM PULMONARY PERFUSION IMAGING RADIOPHARMACEUTICAL: 4 mCi Tc-99m MAA via a right antecubital vein IV site REASON FOR STUDY: Chest pain. Shortness of breath and cough. TECHNIQUE: Limited multi-planar perfusion scintigrams were obtained. COMPARISON: Chest radiograph 04/15/2023 FINDINGS: Perfusion images obtained in the anterior, anterior oblique, and lateral projectionswere obtained. The posterior and posterior oblique projections were not obtained. There is mild enlargement of the cardiomediastinal silhouette. There are no large segmental perfusion defects on the provided images. IMPRESSION: 1. Limited perfusion lung scan with a low probability for pulmonary embolism. THIS IS AN ELECTRONICALLY VERIFIED FINAL REPORT 04/15/2023 4:31 PM - Electronically signed by Amor Rodriguez M.D. LB T: Report ID: [id number] Reading Location: [id number] XR Foot Right 3 or More Views Result Date: 04/15/2023 Narrative: EXAM DESCRIPTION: XR FOOT RIGHT 3 OR MORE VIEWS REASON FOR STUDY: Wound infection TECHNIQUE: 3 radiographic view(s) of the right foot . COMPARISON: 02/20/2023 FINDINGS: Plantar soft tissueulceration of the hindfoot with underlying soft tissue gas. There is diffuse soft tissue swelling of the foot, particularly involving the dorsal aspect of the mid to forefoot. No radiopaque foreign bodies. There is suspected mild osseous cortical erosion involving the plantar aspect of the calcaneus when compared to the prior exam. No acute fracture or dislocation. IMPRESSION: Prominent soft tissue ulceration of the plantar aspect of the hindfoot with underlying soft tissue gas. Suspected osseous cortical erosion involving the plantar aspect of the calcaneus, concerning for acute osteomyelitis. THIS IS AN ELECTRONICALLY VERIFIED FINAL REPORT 04/15/2023 2:51 PM - Electronically signed by Rio PHILLIPS T: Report ID: [id number] Reading Location: [id number] XR Chest 1 Vw Portable Result Date: 04/15/2023 Narrative: EXAM DESCRIPTION: XR CHEST 1 VIEW REASON FOR STUDY: Shortness of breath Pt with sob, weakness x 2-3 days Hx lg necrotic wnd on rt foot that she is being treated for Pt is lt leg amputee above the knee TECHNIQUE: 1 radiographic view(s) of the chest. COMPARISON: None FINDINGS: LUNGS: Diffuse bilateral interstitial opacities. No focal consolidation. No pneumothorax. No large pleural effusion. HEART/MEDIASTINUM: Cardiac silhouette is enlarged.. Mediastinal and hilar contours appear normal. LINES/TUBES: None. BONES: No acute osseous abnormality. IMPRESSION: Findings are suggestive of pulmonary edema. THIS IS AN ELECTRONICALLY VERIFIED FINAL REPORT 04/15/2023 2:43 PM - Electronically signed by Rio PHILLIPS T: Report ID: [id number] Reading Location: [id number] Assessment and Plan: Assessment Acute hypoxemic respiratory failure secondary to fluid overload/pulmonary edema and possible sepsis. No history of smoking. Bed bound. Right BKA. Renal insufficiency. Plan Oxygen keep ox saturation more than 92%. Bronchodilators around the clock and as needed with albuterol and Atrovent. Head of bed elevation and aspiration precaution. Diuresis, monitor O2 retires and fluid balance, monitor kidney function. Incentive spirometry and physical therapy. Out of bed to the chair if possible. Pulmonary toilet and pep valve. Check blood culture, sputum culture, ESR, CRP, BNP, procalcitonin and MRSA. Saline nasal spray twice daily. Patient would need outpatient split sleep study. Condition is guarded. Will monitor patient closely. Continue antibiotics, daptomycin and cefepime. Check 2D echocardiogram. 04/16 -continue daptomycin, cefepime, day 2., patient would need 2D echocardiogram to evaluate her cardiomegaly and fluid overload on chest x-ray. Continue monitoring electrolytes, kidney function, input and output. Continue bronchodilators, oxygen supplement keep ox saturation more than 92%, head of bedelevation, aspiration precaution, pep valve, pulmonary toilet, DVT and stress ulcer prophylaxis, continue wound care and continue monitor patient closely. Patient condition is guarded. 04/17 -daptomycin, cefepime(was switched to ceftriaxone and Flagyl), day 3., 2D echocardiogram was reviewed. Continue nutritional support, head of bed elevation, aspiration precaution, pulmonary toilet, DVT and stress ulcer prophylaxis, pep valve, bronchodilators, oxygen supplement keep ox saturation more than 92%, wean oxygen as tolerated, continue wound care, continue diuresis, monitor electrolytes and fluid balance, patient condition continued to be guarded. 04/18 -antibiotics, ceftriaxone, Flagyl and daptomycin, day number 4 continue weaning oxygen keep ox saturation more than 92%, head of bed elevation, aspiration precaution, bronchodilators, incentive spirometry, physical therapy, pep valve, DVT and stress ulcer prophylaxis, pulmonary toilet, continue wound care, diuresis, monitor electrolytes and fluid balance, continue monitor patient closely. She would need outpatient split sleep study. 04/19 - again respiratory failure seems to be likely related to volume overload and acute renal insufficiency. This continues to improve with diuresis. Awaiting labs from today but will continue to monitorrenal function and electrolytes. She continues on antibiotics for right lower extremity osteomyelitis. Low suspicion for eosinophilic pneumonia/pneumonitis from daptomycin. Wean oxygen as tolerated and recommend sleep study as an outpatient. Pulmonary will follow peripherally over the weekend. The patient will be seen by Dr. Paniagua on Friday. Please call with any further questions. 04/21 -patient continued to be on oxygen 4 liter/minute, she does not have oxygen at home. Her albumin isonly 1.3. Continue antibiotics, daptomycin, Rocephin and Flagyl day number 6, continue nutritional support, high-protein diet, diuresis, monitor electrolytes and fluid balance, head of bed elevation,aspiration precaution, incentive spirometry, physical therapy, pulmonary toilet, out of bed to the chair if possible, pulmonary toilet, DVT and stress ulcer prophylaxis, continue weaning oxygen keep ox saturation more than 92%, continue monitor patient closely. Condition is very guarded. Rendering Provider & Department: Darell Paniagua MD THIS NOTE WAS CREATED IN PART WITH THE ASSISTANCE OF [employer]. ASSISTANT PRODUCER VARIANCES MAY OCCUR. For patients or family members viewing this note through [employer]: This note was written as a communication tool between healthcare providers and may contain technical language, terminology and abbreviations that is difficult to interpret without advanced medical training. If you have questions or concerns regarding what is written in this note, please request to speak with the healthcare provider taking care of you or your family member. * Dallas Peña MD - 04/20/2023 11:57 AM CDT Renal Progress Note Admit Date: 04/15/2023 Days: 5 Reason for Follow up: Acute on chronic kidney failure Clinical Course/New Symptoms Lying in bed in no distress. No new complaints. Denies any nausea or vomiting. Less shortness of breath. Currently on 3 L via nasal cannula. Data Vitals: 04/20/23 1100 BP: 139/76 Pulse: 91 Resp: 20 Temp: 36.6 ??C (97.8 ??F) SpO2: 95% f breath Exam Constitutional: alert and oriented. Appears well-developed and well-nourished, in no distress. HighBMI Head: Normocephalic. Eyes: No icterus, extraocular movements normal Neck: Neck supple. Cardiovascular: Normal rate and regular rhythm. No murmur heard. Pulmonary/Chest: Diminished breath sounds bilaterally, on oxygen via nasal cannula. Abdominal: Soft. Musculoskeletal: Right lower extremity edema. Heel ulcer is visible. Neurological: alert and moves all 4 limbs. Skin: No rashes Intake/Output Summary (Last 24 hours) at 04/20/2023 1157 Last data filed at 04/20/2023 1110 Gross per 24 hour Intake -- Output 7750 ml Net -7750 ml MEDICATIONS FOR CURRENT ENCOUNTER: SCHEDULED MEDICATIONS: Scheduled Medications Medication Dose Route Frequency cefTRIAXone (ROCEPHIN) 2,000 mg/20 mL in sterile water (premix) 2,000 mg 2,000 mg intravenous Q24H ERICK DAPTOmycin (CUBICIN) 50 mg/mL sodium chloride 0.9% 700 mg 700 mg intravenous Q24H ergocalciferol (VITAMIN D) capsule 50,000 Units 50,000 Units oral Weekly folic acid (FOLVITE) tablet 1 mg 1 mg oral Daily furosemide (LASIX) 10 mg/mL injection 80 mg 80 mg intravenous BID DIURETIC heparin 5,000 unit/mL injection 7,500 Units 7,500 Units subcutaneous Q8H ERICK insulin glargine (LANTUS, SEMGLEE) 100 unit/mL injection 22 Units 0.15 Units/kg subcutaneous Nightly insulin lispro (HumaLOG, ADMELOG) 100 unit/mL injection 0-4 Units 0-4 Units subcutaneous Nightly insulin lispro (HumaLOG, ADMELOG) 100 unit/mL injection 0-5 Units 0-5 Units subcutaneous TID with meals insulin lispro (HumaLOG, ADMELOG) 100 unit/mL injection 7 Units 0.05 Units/kg subcutaneous TID withmeals metroNIDAZOLE (FLAGYL) tablet 500 mg 500 mg oral TID sodium chloride 0.9% flush 0.5-20 mL 0.5-20 mL intra-catheter Q8H ERICK sodium chloride 0.9% flush 5-10 mL 5-10 mL intra-catheter Q12H ERICK spironolactone (ALDACTONE) tablet 25 mg 25 mg oral BID DIURETIC thiamine (VITAMIN B-1) tablet 50 mg 50 mg oral Daily CONTINUOUS MEDICATIONS: Current Facility-Administered Medications Medication Dose Route Frequency Last Admin PRN MEDICATIONS: PRN Medications Medication Dose Route Frequency Last Admin acetaminophen (TYLENOL) tablet 650 mg 650 mg oral Q4H PRN sodium chloride 0.9% flush 0.5-20 mL 0.5-20 mL intra-catheter PRN And Carrier Fluids for Secondary Infusion - 0.9% Sodium Chloride 30 mL intravenous PRN dextrose (GLUTOSE) 40 % gel 15 g 15 g oral Q15 Min PRN Or dextrose (D10W) 10% bolus 250 mL 250 mL intravenous Q15 Min PRN glucagon injection 1 mg 1 mg intramuscular Q30 Min PRN HYDROmorphone (DILAUDID) injection 0.5 mg 0.5 mg intravenous Q4H PRN 0.5 mg at 04/18/231817 ipratropium-albuteroL (DUO-NEB) 0.5-2.5 mg/3 mL nebulizer solution 3 mL 3 mL nebulization Q4H PRN (RT) ondansetron ODT (ZOFRAN-ODT) disintegrating tablet 4 mg 4 mg oral Q6H PRN Or ondansetron (ZOFRAN) injection 4 mg 4 mg intravenous Q6H PRN sodium chloride (OCEAN) 0.65 % nasal spray 1 spray 1 spray each nostril Q2H PRN sodium chloride 0.9% flush 5-20 mL 5-20 mL intra-catheter PRN My review of labs, imaging, notes and other tests is significant for Recent Labs Lab Units 04/20/23 0708 04/19/23 0744 04/18/23 0646 WBC K/cumm 24.6* 26.1* 26.9* HEMOGLOBIN g/dL 8.3* 9.3* 8.2* HEMATOCRIT % 27.5* 31.2* 26.1* PLATELETS K/cumm 538* 501* 572* . Recent Labs Lab Units 04/20/23 1112 04/20/23 0727 04/20/23 0708 04/19/23 0749 04/19/23 0744 04/18/23 0718 04/18/23 0646 SODIUM mmol/L -- -- 139 -- 139 -- 140 POTASSIUM PLASMA mmol/L -- -- 3.4 -- 3.6 -- 3.7 CHLORIDE mmol/L -- -- 107 -- 107 -- 109 CO2 mmol/L -- -- 28 -- 22 -- 24 CREATININE mg/dL -- -- 1.50* -- 1.70* -- 1.80* GLUCOSE mg/dL -- -- 89 -- 77 -- 137 POC GLUCOSE MONITOR mg/dL 82 105 -- < > -- < > -- CALCIUM mg/dL -- -- 7.8* -- 7.9* -- 7.7* ALBUMIN g/dL -- -- 1.3* -- 1.3* -- 1.7* PHOSPHORUS PLASMA mg/dL -- -- 3.4 -- 3.8 -- 4.3 < > = values in this interval not displayed. .No lab exists for component: COLORUA, CHARACTERUA, SPECGRAVUA, PHUA, PROTEINUA, BLOODUA, LEUKOCYTEUA, NITRITEUA, GLUCOSEUA, KETONEUA, BILIRUBINUA, UROBILINUA, WBCUA, RBCUA, EPITHUA, MUCUSUA, CASTUA,CRYSTALUA, BACTERIAUA, YEASTUA, TRICHUA XR Chest 1 View EXAM DESCRIPTION: XR CHEST 1 VIEW REASON FOR STUDY: Shortness of breath Pt with sob, weakness x 2-3 days on day of admit (04/15/23 TECHNIQUE: Frontal radiographic view(s) of the chest. COMPARISON: 04/17/2023 FINDINGS: Mild airspace and interstitial opacities, likely improved compared to 04/17/2023. Likely small pleural effusions. No definite pneumothorax. Moderate cardiomegaly is stable. Apparent placement of a partially imaged right PICC with tip projecting over the region of the right brachiocephalic vein. IMPRESSION: 1. Mild airspace and interstitial opacities, likely pulmonary edema. 2. Stable cardiomegaly. 3. Apparent placement of a right PICC with tip projecting over the region of the right brachiocephalic vein. This was discussed with Cameron SAMUEL at approximately 8 a.m. on 04/19/2023. THIS IS AN ELECTRONICALLY VERIFIED FINAL REPORT 04/19/2023 8:02 AM - Electronically signed by Robbi Phan M.D. AG T: Report ID: [id number] Reading Location: [place] [id number] Assessment and Plan Active Problems: Acute diastolic congestive heart failure (CMS/HCC) (HCC) Type II diabetes mellitus with foot ulcer (HCC) Hypertension Acute respiratory failure with hypoxia (CMS/HCC) (HCC) Diarrhea Acute kidney failure (HCC) Elevated troponin Osteomyelitis (HCC) Wounds, multiple Resolved Problems: No resolved hospital problems. BOBBY on CKD in the setting of significant volume overload/pulmonary edema, unclear whether has obstructive uropathy as well, will check a postvoid residual. Does appear quite volume overloaded and will initiate IV furosemide. Obtaining a urinalysis with microscopy as well as a spot urine protein to c reatinine ratio as albumin is 1.8, likely has significant proteinuria. May need to order autoimmuneserology if active UA sediment. Echocardiogram is pending, previous echo with adequate EF and mild diastolic dysfunction. Obtaining a renal ultrasound as well. No acute need for dialysis and hopefully to respond to diuretics. Does have significant leukocytosis may have underlying infection, blood cultures pending, initiated on empiric antibiotics as well. 04/16/2023 Denies any urinary symptoms. Continue furosemide 80 mg IV b.i.d.. Has sub nephrotic proteinuria was1.8 g per g as per a spot sample. Continues to have significantly high leukocytosis. On antibiotics. Urine output noted, probably incomplete. Anemia. Will check iron profile, B12 and folate. Monitor urine output accurately. 2D echo is pending. 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 Noted vascular surgery recommendations regarding a rightabove-knee amputation which the patient declines. 04/17 Serum creatinine down to 2.1 today. Continue diuretics. Serum albumin 1.3. Multifactorial hypoalbuminemia. Non nephrotic range albuminuria previously unlikely primarily secondary to chronic inflammation. Reported diabetic retinopathy with potential need for intervention. Would hold off on prophylactic 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 for now in the setting of hypoalbuminemia. Plans are for PICC line with prolonged antibiotics for attempted limb salvage. Prognosis is extremely guarded. Started on folate and iron replacement and will add vitamin-D replacement as well given deficiency. 04/18 Creatinine is improving. Down to 1.80. K 3.7, UOP 5000 ml yesterday. Improved creatinine with diuresis. BP 147/77 but variable and lower at times. 2 D Echo with normal EF but with diastolic dysfunction. Likely diabetic kidney disease in the setting of longstanding diabetes as well as diabetic retinopathy. Continue diuresis with furosemide at current dose of 80 mg IV b.i.d.. He is diuresing well. On antibiotics as per primary team/ID/vascular for the diabetic foot infection. She does not have a good appetite and this may be due to her ongoing infection. Likely not related to diminished renal function. Avoid hypotension and nephrotoxins. 04/19/23 Urine output 4-5 0 mL yesterday. Blood pressure 143/78 mmHg. Potassium 3.6, creatinine 1.70 (improved from 1.80 yesterday). Albumin is 1.3. On furosemide 80 mg IV q.12. Adding spironolactone 25 mg p.o. b.i.d.. Will try convert to oral furosemide in the near future. Significant hypoalbuminemia, likely effect of long-term malnutrition, chronic inflammation/infection, proteinuria. Improving nutrition will help but may not be possible without complete treatment of the infection. Monitor electrolytes and adjust spironolactone accordingly. 04/20/2023 Impressive diuresis with a combination of intravenous furosemide and oral spironolactone. Made 6.4 L of urine yesterday. Creatinine continues to decline and is down to 1.50 today. Blood pressure is reasonable at 139/76 mmHg. No hypotension at this time. Will continue current regimen with intravenous furosemide and oral spironolactone and hopefully convert to oral furosemide in the next few days. Thank you. Dallas Peña MD [facility] Nephrology and Hypertension Office: [phone] * Hien Rabago MD - 04/20/2023 8:10 AM CDT Images from the original note were not included. General Medicine Daily Progress DOA: 04/15/2023 Subjective Chief complaint of . Dyspnea Interval History: Improved dyspnea, on 3 L supplemental oxygen Awaiting right foot ulcer debridement by Podiatry Past Medical History: Diagnosis Date CHF (congestive heart failure) ([facility]) ([facility]) CKD (chronic kidney disease) Diabetes mellitus ([facility]) Hx of AKA (above knee amputation) ([facility]) ([facility]) Left Hypertension Objective Vitals: 24hr Min/Max: Temp Min: 36.4 ??C (97.5 ??F) Max: 37.4 ??C (99.4 ??F) Pulse Min: 90 Max: 96 BP Min: 130/75 Max: 149/82 Resp Min: 17 Max: 19 SpO2 Min: 93 % Max: 96 % Most Recent : Vitals: 04/20/23 0700 BP: 145/81 Pulse: 91 Resp: 18 Temp: 36.7 ??C (98.1 ??F) SpO2: 93% I/O last 2 completed shifts: In: 140 [P.O.:140] Out: 6400 [Urine:6400] No intake/output data recorded. Physical Exam: Physical Exam Constitutional: Appearance: She is well-developed. She is obese. She is ill-appearing. She is not diaphoretic. HENT: Head: Normocephalic. Mouth/Throat: Mouth: Mucous membranes are moist. Eyes: Pupils: Pupils are equal, round, and reactive to light. Cardiovascular: Rate and Rhythm: Normal rate and regular rhythm. Pulmonary: Effort: Pulmonary effort is normal. No tachypnea. Breath sounds: Decreased breath sounds present. No wheezing, rhonchi or rales. Chest: Chest wall: No mass. Abdominal: General: Bowel sounds are normal. Palpations: Abdomen is soft. There is no hepatomegaly. Musculoskeletal: General: Normal range of motion. Cervical back: Normal range of motion. Right lower leg: No edema. Left lower leg: No edema. Skin: General: Skin is warm. Capillary Refill: Capillary refill takes less than 2 seconds. Findings: Erythema present. Neurological: General: No focal deficit present. Mental Status: She is alert and oriented to person, place, and time. Psychiatric: Mood and Affect: Mood normal. Lab/Radiology/Diagnostic Review: Laboratory review: Chemistry BMP Lab Results Component Value Date GLUCOSE 105 04/20/2023 GLUCOSE 89 04/20/2023 CALCIUM 7.8 (L) 04/20/2023 SODIUM 139 04/20/2023 POTASSIUM 3.4 04/20/2023 CO2 28 04/20/2023 BUNSER 26 (H) 04/20/2023 CREATININE 1.50 (H) 04/20/2023 and CBC: Lab Results Component Value Date WBC 24.6 (H) 04/20/2023 RBC 3.15 (L) 04/20/2023 HGB 8.3 (L) 04/20/2023 HCT 27.5 (L) 04/20/2023 MCV 87.3 04/20/2023 MCH 26.3 (L) 04/20/2023 MCHC 30.2 (L) 04/20/2023 RDWCV 17.2 (H) 04/20/2023 RDWSD 54.3 (H) 04/20/2023 MPV 9.0 (L) 04/20/2023 NRBCABS 0.02 (H) 04/20/2023 Current Facility-Administered Medications Medication Dose Route Frequency Provider Last Rate Last Admin acetaminophen (TYLENOL) tablet 650 mg 650 mg oral Q4H PRN Amilcar Hancock MD sodium chloride 0.9% flush 0.5-20 mL 0.5-20 mL intra-catheter Q8H [facility] Amilcar Hancock MD 10 mL at04/20/23 0555 And sodium chloride 0.9% flush 0.5-20 mL 0.5-20 mL intra-catheter PRN Amilcar Hancock MD And Carrier Fluids for Secondary Infusion - 0.9% Sodium Chloride 30 mL intravenous PRN Amilcar Hancock MD cefTRIAXone (ROCEPHIN) 2,000 mg/20 mL in sterile water (premix) 2,000 mg 2,000 mg intravenous Q24H [facility] Dante Stubbs MD 2,000 mg at 04/19/23 0931 DAPTOmycin (CUBICIN) 50 mg/mL sodium chloride 0.9% 700 mg 700 mg intravenous Q24H Amilcar Hancock MD 700 mg at 04/19/23 1546 dextrose (GLUTOSE) 40 % gel 15 g 15 g oral Q15 Min PRN Amilcar Hancock MD Or dextrose (D10W) 10% bolus 250 mL 250 mL intravenous Q15 Min PRN Amilcar Hancock MD ergocalciferol (VITAMIN D) capsule 50,000 Units 50,000 Units oral Weekly Golden Kidd MD 50,000 Units at 04/17/23 1437 folic acid (FOLVITE) tablet 1 mg 1 mg oral Daily Hien Rabago MD 1 mg at 04/19/23 0931 furosemide (LASIX) 10 mg/mL injection 80 mg 80 mg intravenous BID DIURETIC Amilcar Hancock MD 80 mg at 04/19/23 1546 glucagon injection 1 mg 1 mg intramuscular Q30 Min PRN Amilcar Hancock MD heparin 5,000 unit/mL injection 7,500 Units 7,500 Units subcutaneous Q8H [facility] Amilcar Hancock MD 7,500 Units at 04/20/23 0554 HYDROmorphone (DILAUDID) injection 0.5 mg 0.5 mg intravenous Q4H PRN Hien Rabago MD 0.5 mgat 04/18/23 1818 insulin glargine (LANTUS, SEMGLEE) 100 unit/mL injection 22 Units 0.15 Units/kg subcutaneous Nightly Amilcar Hancock MD 22 Units at 04/19/232150 insulin lispro (HumaLOG, ADMELOG) 100 unit/mL injection 0-4 Units 0-4 Units subcutaneous Nightly Amiclar Hancock MD insulin lispro (HumaLOG, ADMELOG) 100 unit/mL injection 0-5 Units 0-5 Units subcutaneous TID with meals Amilcar Hancock MD insulin lispro (HumaLOG, ADMELOG) 100 unit/mL injection 7 Units 0.05 Units/kg subcutaneous TID withmeals Amilcar Hancock MD 7 Units at 04/16/23 180 ipratropium-albuteroL (DUO-NEB) 0.5-2.5 mg/3 mL nebulizer solution 3 mL 3 mL nebulization Q4H PRN (RT) Darell Paniagua MD metroNIDAZOLE (FLAGYL) tablet 500 mg 500 mg oral TID Dante Stubbs MD 500 mg at 04/19/232150 ondansetron ODT (ZOFRAN-ODT) disintegrating tablet 4 mg 4 mg oral Q6H PRN Amilcar Hancock MD Or ondansetron (ZOFRAN) injection 4 mg 4 mg intravenous Q6H PRN Amilcar Hancock MD sodium chloride (OCEAN) 0.65 % nasal spray 1 spray 1 spray each nostril Q2H PRN Darell Paniagua MD sodium chloride 0.9% flush 5-10 mL 5-10 mL intra-catheter Q12H [facility] Hien Rabago MD 10 mL at04/19/232155 sodium chloride 0.9% flush 5-20 mL 5-20 mL intra-catheter PRN Hien Rabago MD spironolactone (ALDACTONE) tablet 25 mg 25 mg oral BID DIURETIC Dallas Peña MD 25 mg at 04/19/23 1545 thiamine (VITAMIN B-1) tablet 50 mg 50 mg oral Daily Hien Rabago MD 50 mg at 04/19/23 0931 Assessment/Plan Active Problems: Acute diastolic congestive heart failure (CMS/HCC) (HCC) Type II diabetes mellitus with foot ulcer (HCC) Hypertension Acute respiratory failure with hypoxia (CMS/HCC) (HCC) Diarrhea Acute kidney failure (HCC) Elevated troponin Osteomyelitis (HCC) Wounds, multiple Plan Expand All Collapse All General Medicine Daily Progress DOA: 04/15/2023 Subjective Chief complaint of . Dyspnea Interval History: Dyspnea improved Right foot ulcer debridement by Podiatry Medical History Past Medical History: Diagnosis Date CHF (congestive heart failure) (CMS/HCC) (HCC) CKD (chronic kidney disease) Diabetes mellitus (HCC) Hx of AKA (above knee amputation) (CMS/HCC) (HCC) Left Hypertension Objective Vitals: 24hr Min/Max: Temp Min: 36.2 ??C (97.2 ??F) Max: 36.6 ??C (97.9 ??F) Pulse Min: 84 Max: 93 BP Min: 129/61 Max: 147/84 Resp Min: 18 Max: 20 SpO2 Min: 86 % Max: 95 % Most Recent : Vitals: 04/19/23 1100 BP: 143/78 Pulse: 90 Resp: 18 Temp: 36.4 ??C (97.5 ??F) SpO2: 93% I/O last 2 completed shifts: In: 1095 [P.O.:925; I.V.:50; IV Piggyback:120] Out: 4250 [Urine:4250] I/O this shift: In: 140 [P.O.:140] Out: - Physical Exam: Physical Exam Constitutional: Appearance: She is well-developed. She is obese. She is ill-appearing. She is not diaphoretic. HENT: Head: Normocephalic. Eyes: Pupils: Pupils are equal, round, and reactive to light. Neck: Thyroid: No thyromegaly. Vascular: No JVD. Cardiovascular: Rate and Rhythm: Normal rate and regular rhythm. Pulmonary: Effort: Pulmonary effort is normal. No tachypnea. Breath sounds: Decreased breath sounds and rhonchi present. No wheezing or rales. Chest: Chest wall: No mass. Abdominal: General: Bowel sounds are normal. Palpations: Abdomen is soft. There is no hepatomegaly. Musculoskeletal: Cervical back: Normal range of motion. Right lower leg: No tenderness. Edema present. Left lower leg: No tenderness. No edema. Comments: Left AKA Skin: General: Skin is warm and dry. Capillary Refill: Capillary refill takes less than 2 seconds. Coloration: Skin is not cyanotic. Neurological: General: No focal deficit present. Mental Status: She is alert and oriented to person, place, and time. Psychiatric: Mood and Affect: Mood normal. Lab/Radiology/Diagnostic Review: Laboratory review: Chemistry BMP Lab Results Component Value Date GLUCOSE 71 04/19/2023 GLUCOSE 77 04/19/2023 CALCIUM 7.9 (L) 04/19/2023 SODIUM 139 04/19/2023 POTASSIUM 3.6 04/19/2023 CO2 22 04/19/2023 BUNSER 29 (H) 04/19/2023 CREATININE 1.70 (H) 04/19/2023 and CBC: Lab Results Component Value Date WBC 26.1 (H) 04/19/2023 RBC 3.52 (L) 04/19/2023 HGB 9.3 (L) 04/19/2023 HCT 31.2 (L) 04/19/2023 MCV 88.6 04/19/2023 MCH 26.4 (L) 04/19/2023 MCHC 29.8 (L) 04/19/2023 RDWCV 17.6 (H) 04/19/2023 RDWSD 56.8 (H) 04/19/2023 MPV 10.0 04/19/2023 NRBCABS 0.03 (H) 04/19/2023 Current Facility-Administered Medications Medication Dose Route Frequency Provider Last Rate Last Admin acetaminophen (TYLENOL) tablet 650 mg 650 mg oral Q4H PRN Amilcar Hancock MD sodium chloride 0.9% flush 0.5-20 mL 0.5-20 mL intra-catheter Q8H Amilcar Vee MD 10 mL at04/19/23 0603 And sodium chloride 0.9% flush 0.5-20 mL 0.5-20 mL intra-catheter PRN Amilcar Hancock MD And Carrier Fluids for Secondary Infusion - 0.9% Sodium Chloride 30 mL intravenous PRN Amilcar Hancock MD cefTRIAXone (ROCEPHIN) 2,000 mg/20 mL in sterile water (premix) 2,000 mg 2,000 mg intravenous Q24H Dante Fitzgerald MD 2,000 mg at 04/19/23 0931 DAPTOmycin (CUBICIN) 50 mg/mL sodium chloride 0.9% 700 mg 700 mg intravenous Q24H Amilcar Hancock MD 700 mg at 04/18/23 1559 dextrose (GLUTOSE) 40 % gel 15 g 15 g oral Q15 Min PRN Amilcar Hancock MD Or dextrose (D10W) 10% bolus 250 mL 250 mL intravenous Q15 Min PRN Amilcar Hancock MD ergocalciferol (VITAMIN D) capsule 50,000 Units 50,000 Units oral Weekly Golden Kidd MD 50,000 Units at 04/17/23 1437 folic acid (FOLVITE) tablet 1 mg 1 mg oral Daily Hien Rabago MD 1 mg at 04/19/23 0931 furosemide (LASIX) 10 mg/mL injection 80 mg 80 mg intravenous BID DIURETIC Amilcar Hancock MD 80 mg at 04/19/23 0931 glucagon injection 1 mg 1 mg intramuscular Q30 Min PRN Amilcar Hancock MD heparin 5,000 unit/mL injection 7,500 Units 7,500 Units subcutaneous Q8H [facility] Amilcar Hancock MD 7,500 Units at 04/19/23 0602 HYDROmorphone (DILAUDID) injection 0.5 mg 0.5 mg intravenous Q4H PRN Hien Rabago MD 0.5 mgat 04/18/23 1818 insulin glargine (LANTUS, SEMGLEE) 100 unit/mL injection 22 Units 0.15 Units/kg subcutaneous Nightly Amilcar Hancock MD 22 Units at 04/18/23 2321 insulin lispro (HumaLOG, ADMELOG) 100 unit/mL injection 0-4 Units 0-4 Units subcutaneous Nightly Amilcar Hancock MD insulin lispro (HumaLOG, ADMELOG) 100 unit/mL injection 0-5 Units 0-5 Units subcutaneous TID with meals Amilcar Hancock MD insulin lispro (HumaLOG, ADMELOG) 100 unit/mL injection 7 Units 0.05 Units/kg subcutaneous TID withmeals Amilcar Hancock MD 7 Units at 04/16/23 1801 ipratropium-albuteroL (DUO-NEB) 0.5-2.5 mg/3 mL nebulizer solution 3 mL 3 mL nebulization Q4H PRN (RT) Darell Paniagua MD metroNIDAZOLE (FLAGYL) tablet 500 mg 500 mg oral TID Dante Stubbs MD 500 mg at 04/19/23 0931 ondansetron ODT (ZOFRAN-ODT) disintegrating tablet 4 mg 4 mg oral Q6H PRN Amilcar Hancock MD Or ondansetron (ZOFRAN) injection 4 mg 4 mg intravenous Q6H PRN Amilcar Hancock MD sodium chloride (OCEAN) 0.65 % nasal spray 1 spray 1 spray each nostril Q2H PRN Darell Paniagua MD sodium chloride 0.9% flush 5-10 mL 5-10 mL intra-catheter Q12H [facility] Hien Rabago MD 10 mL at04/19/23 0932 sodium chloride 0.9% flush 5-20 mL 5-20 mL intra-catheter PRN Hien Rabago MD thiamine (VITAMIN B-1) tablet 50 mg 50 mg oral Daily Hien Rabago MD 50 mg at 04/19/23 0931 Assessment/Plan Active Problems: Acute diastolic congestive heart failure (CMS/HCC) ([facility]) Type II diabetes mellitus with foot ulcer (HCC) Hypertension Acute respiratory failure with hypoxia (CMS/HCC) ([facility]) Diarrhea Acute kidney failure (HCC) Elevated troponin Osteomyelitis (HCC) Wounds, multiple Plan # acute hypoxemic respiratory failure 2/2 CHF exacerbation with acute heart failure On 3 L supplemental oxygen -patient is morbidly obese, likely OHS component -echocardiogram to rule out heart failure exacerbation -on Lasix 80 mg IV b.i.d. 04/20 On 3 L supplemental oxygen Afebrile, persistent leukocytosis On ceftriaxone day 5, metronidazole day 5 and daptomycin day 6 Wound culture grew Streptococcus agalactiae group B, blood culture shows no growth # COPD -improved respiratory distress -continue bronchodilator # iron-deficiency anemia and folate deficiency -completed IV iron sucrose, started on oral ferrous sulfate -on thiamine and folic acid # acute osteomyelitis of the right foot calcaneum # abdominal wall infection panniculitis -on daptomycin day 5 -patient refused right BKA per vascular surgery scheduler -PICC line placed -follow ID consult recommendations -podiatry consulted for debridement # diabetes mellitus -continue insulin regimen # CKD 3A secondary to possible nephrotic syndrome Stable -follow renal consult recommendation # PVD -follow vascular surgery recommendation DVT prophylaxis: Heparin GI prophylaxis: Ppi Rehab consult: Ongoing CODE status: Full Code Discharge disposition: Home * Rob Morales - 04/19/2023 1:01 PM CDT 04/19/23 1200 Time Spent Start Time 1259 Patient Spiritual Assessment Spirituality Assessed Yes Muslim Affiliation None Clinical Encounter Type Visited With Patient Response Type Routine visit Routine Visit Introduction Reason for visit Support Interventions Interventions Offer emotional support (blessing) * Hien Rabago MD - 04/19/2023 12:09 PM CDT General Medicine Daily Progress DOA: 04/15/2023 Subjective Chief complaint of . Dyspnea Interval History: Dyspnea improved Right foot ulcer debridement by Podiatry Past Medical History: Diagnosis Date CHF (congestive heart failure) (CMS/HCC) (HCC) CKD (chronic kidney disease) Diabetes mellitus (HCC) Hx of AKA (above knee amputation) (CMS/HCC) (HCC) Left Hypertension Objective Vitals: 24hr Min/Max: Temp Min: 36.2 ??C (97.2 ??F) Max: 36.6 ??C (97.9 ??F) Pulse Min: 84 Max: 93 BP Min: 129/61 Max: 147/84 Resp Min: 18 Max: 20 SpO2 Min: 86 % Max: 95 % Most Recent : Vitals: 04/19/23 1100 BP: 143/78 Pulse: 90 Resp: 18 Temp: 36.4 ??C (97.5 ??F) SpO2: 93% I/O last 2 completed shifts: In: 1095 [P.O.:925; I.V.:50; IV Piggyback:120] Out: 4250 [Urine:4250] I/O this shift: In: 140 [P.O.:140] Out: - Physical Exam: Physical Exam Constitutional: Appearance: She is well-developed. She is obese. She is ill-appearing. She is not diaphoretic. HENT: Head: Normocephalic. Eyes: Pupils: Pupils are equal, round, and reactive to light. Neck: Thyroid: No thyromegaly. Vascular: No JVD. Cardiovascular: Rate and Rhythm: Normal rate and regular rhythm. Pulmonary: Effort: Pulmonary effort is normal. No tachypnea. Breath sounds: Decreased breath sounds and rhonchi present. No wheezing or rales. Chest: Chest wall: No mass. Abdominal: General: Bowel sounds are normal. Palpations: Abdomen is soft. There is no hepatomegaly. Musculoskeletal: Cervical back: Normal range of motion. Right lower leg: No tenderness. Edema present. Left lower leg: No tenderness. No edema. Comments: Left AKA Skin: General: Skin is warm and dry. Capillary Refill: Capillary refill takes less than 2 seconds. Coloration: Skin is not cyanotic. Neurological: General: No focal deficit present. Mental Status: She is alert and oriented to person, place, and time. Psychiatric: Mood and Affect: Mood normal. Lab/Radiology/Diagnostic Review: Laboratory review: Chemistry BMP Lab Results Component Value Date GLUCOSE 71 04/19/2023 GLUCOSE 77 04/19/2023 CALCIUM 7.9 (L) 04/19/2023 SODIUM 139 04/19/2023 POTASSIUM 3.6 04/19/2023 CO2 22 04/19/2023 BUNSER 29 (H) 04/19/2023 CREATININE 1.70 (H) 04/19/2023 and CBC: Lab Results Component Value Date WBC 26.1 (H) 04/19/2023 RBC 3.52 (L) 04/19/2023 HGB 9.3 (L) 04/19/2023 HCT 31.2 (L) 04/19/2023 MCV 88.6 04/19/2023 MCH 26.4 (L) 04/19/2023 MCHC 29.8 (L) 04/19/2023 RDWCV 17.6 (H) 04/19/2023 RDWSD 56.8 (H) 04/19/2023 MPV 10.0 04/19/2023 NRBCABS 0.03 (H) 04/19/2023 Current Facility-Administered Medications Medication Dose Route Frequency Provider Last Rate Last Admin acetaminophen (TYLENOL) tablet 650 mg 650 mg oral Q4H PRN Amilcar Hancock MD sodium chloride 0.9% flush 0.5-20 mL 0.5-20 mL intra-catheter Q8H [facility] Amilcar Hancock MD 10 mL at04/19/23 0603 And sodium chloride 0.9% flush 0.5-20 mL 0.5-20 mL intra-catheter PRN Amilcar Hancock MD And Carrier Fluids for Secondary Infusion - 0.9% Sodium Chloride 30 mL intravenous PRN Amilcar Hancock MD cefTRIAXone (ROCEPHIN) 2,000 mg/20 mL in sterile water (premix) 2,000 mg 2,000 mg intravenous Q24H Dante Fitzgerald MD 2,000 mg at 04/19/23 0931 DAPTOmycin (CUBICIN) 50 mg/mL sodium chloride 0.9% 700 mg 700 mg intravenous Q24H Amilcar Hancock MD 700 mg at 04/18/23 1559 dextrose (GLUTOSE) 40 % gel 15 g 15 g oral Q15 Min PRN Amilcar Hancock MD Or dextrose (D10W) 10% bolus 250 mL 250 mL intravenous Q15 Min PRAmilcar Vaughan MD ergocalciferol (VITAMIN D) capsule 50,000 Units 50,000 Units oral Weekly Golden Kidd MD 50,000 Units at 04/17/23 1437 folic acid (FOLVITE) tablet 1 mg 1 mg oral Daily Hien Rabago MD 1 mg at 04/19/2331 furosemide (LASIX) 10 mg/mL injection 80 mg 80 mg intravenous BID DIURETIC Amilcar Hancock MD 80 mg at 04/19/23 0931 glucagon injection 1 mg 1 mg intramuscular Q30 Min PRN Amilcar Hancock MD heparin 5,000 unit/mL injection 7,500 Units 7,500 Units subcutaneous Q8H [facility] Amilcar Hancock MD 7,500 Units at 04/19/23 0602 HYDROmorphone (DILAUDID) injection 0.5 mg 0.5 mg intravenous Q4H PRN Hien Rabago MD 0.5 mgat 04/18/23 1818 insulin glargine (LANTUS, SEMGLEE) 100 unit/mL injection 22 Units 0.15 Units/kg subcutaneous Nightly Amilcar Hancock MD 22 Units at 04/18/23 2321 insulin lispro (HumaLOG, ADMELOG) 100 unit/mL injection 0-4 Units 0-4 Units subcutaneous Nightly Amilcar Hancock MD insulin lispro (HumaLOG, ADMELOG) 100 unit/mL injection 0-5 Units 0-5 Units subcutaneous TID with meals Amilcar Hancock MD insulin lispro (HumaLOG, ADMELOG) 100 unit/mL injection 7 Units 0.05 Units/kg subcutaneous TID withmeals Amilcar Hancock MD 7 Units at 04/16/23 180 ipratropium-albuteroL (DUO-NEB) 0.5-2.5 mg/3 mL nebulizer solution 3 mL 3 mL nebulization Q4H PRN (RT) Darell Paniagua MD metroNIDAZOLE (FLAGYL) tablet 500 mg 500 mg oral TID Dante Stubbs MD 500 mg at 04/19/23 0931 ondansetron ODT (ZOFRAN-ODT) disintegrating tablet 4 mg 4 mg oral Q6H PRN Amilcar Hancock MD Or ondansetron (ZOFRAN) injection 4 mg 4 mg intravenous Q6H PRN Amilcar Hancock MD sodium chloride (OCEAN) 0.65 % nasal spray 1 spray 1 spray each nostril Q2H PRN Darell Paniagua MD sodium chloride 0.9% flush 5-10 mL 5-10 mL intra-catheter Q12H [facility] Hien Rabago MD 10 mL at04/19/23 0932 sodium chloride 0.9% flush 5-20 mL 5-20 mL intra-catheter PRN Hien Rabago MD thiamine (VITAMIN B-1) tablet 50 mg 50 mg oral Daily Hien Rabago MD 50 mg at 04/19/23 0931 Assessment/Plan Active Problems: Acute diastolic congestive heart failure (CMS/HCC) (HCC) Type II diabetes mellitus with foot ulcer (HCC) Hypertension Acute respiratory failure with hypoxia (CMS/HCC) (HCC) Diarrhea Acute kidney failure (HCC) Elevated troponin Osteomyelitis (HCC) Wounds, multiple Plan # acute hypoxemic respiratory failure 2/2 CHF exacerbation with acute heart failure -on 4 L supplemental oxygen -patient is morbidly obese, likely OHS component -echocardiogram to rule out heart failure exacerbation -on Lasix 80 mg IV b.i.d. 04/19 Respiratory distress improved On 4 L supplemental oxygen Afebrile, persistent leukocytosis On ceftriaxone, daptomycin, metronidazole day [address] Awaiting right foot ulcer debridement by Podiatry # COPD -continue bronchodilator # iron-deficiency anemia and folate deficiency -started on iron sucrose IV and then oral -started on thiamine and folic acid # acute osteomyelitis of the right foot calcaneum # abdominal wall infection panniculitis -on ceftriaxone, metronidazole and daptomycin day 4 -patient refused right BKA per vascular surgery scheduler -PICC line order today for long time antibiotic regimen -follow ID consult recommendations -podiatry consulted # diabetes mellitus -continue insulin regimen # CKD 3A secondary to possible nephrotic syndrome Stable -follow renal consult recommendation # PVD -follow vascular surgery recommendation DVT prophylaxis: Heparin GI prophylaxis: Ppi Rehab consult: Ongoing CODE status: Full Code Discharge disposition: Home * Dallas Peña MD - 04/19/2023 12:03 PM CDT Renal Progress Note Admit Date: 04/15/2023 Days: 4 Reason for Follow up: Acute on chronic kidney failure Clinical Course/New Symptoms Lying in bed in no distress. Notes that she ate better today. Denies any nausea or vomiting. No shortness of breath Data Vitals: 04/19/23 1100 BP: 143/78 Pulse: 90 Resp: 18 Temp: 36.4 ??C (97.5 ??F) SpO2: 93% Exam Constitutional: alert and oriented. Appears well-developed and well-nourished, in no distress. HighBMI Head: Normocephalic. Eyes: No icterus, extraocular movements normal Neck: Neck supple. Cardiovascular: Normal rate and regular rhythm. No murmur heard. Pulmonary/Chest: Diminished breath sounds bilaterally, on oxygen via nasal cannula. Abdominal: Soft. Musculoskeletal: Right lower extremity edema. Heel ulcer is visible. Neurological: alert and moves all 4 limbs. Skin: No rashes Intake/Output Summary (Last 24 hours) at 04/19/2023 1203 Last data filed at 04/19/2023 0930 Gross per 24 hour Intake 855 ml Output 3850 ml Net -2995 ml MEDICATIONS FOR CURRENT ENCOUNTER: SCHEDULED MEDICATIONS: Scheduled Medications Medication Dose Route Frequency cefTRIAXone (ROCEPHIN) 2,000 mg/20 mL in sterile water (premix) 2,000 mg 2,000 mg intravenous Q24H ERICK DAPTOmycin (CUBICIN) 50 mg/mL sodium chloride 0.9% 700 mg 700 mg intravenous Q24H ergocalciferol (VITAMIN D) capsule 50,000 Units 50,000 Units oral Weekly folic acid (FOLVITE) tablet 1 mg 1 mg oral Daily furosemide (LASIX) 10 mg/mL injection 80 mg 80 mg intravenous BID DIURETIC heparin 5,000 unit/mL injection 7,500 Units 7,500 Units subcutaneous Q8H ERICK insulin glargine (LANTUS, SEMGLEE) 100 unit/mL injection 22 Units 0.15 Units/kg subcutaneous Nightly insulin lispro (HumaLOG, ADMELOG) 100 unit/mL injection 0-4 Units 0-4 Units subcutaneous Nightly insulin lispro (HumaLOG, ADMELOG) 100 unit/mL injection 0-5 Units 0-5 Units subcutaneous TID with meals insulin lispro (HumaLOG, ADMELOG) 100 unit/mL injection 7 Units 0.05 Units/kg subcutaneous TID withmeals metroNIDAZOLE (FLAGYL) tablet 500 mg 500 mg oral TID sodium chloride 0.9% flush 0.5-20 mL 0.5-20 mL intra-catheter Q8H ERICK sodium chloride 0.9% flush 5-10 mL 5-10 mL intra-catheter Q12H ERICK thiamine (VITAMIN B-1) tablet 50 mg 50 mg oral Daily CONTINUOUS MEDICATIONS: Current Facility-Administered Medications Medication Dose Route Frequency Last Admin PRN MEDICATIONS: PRN Medications Medication Dose Route Frequency Last Admin acetaminophen (TYLENOL) tablet 650 mg 650 mg oral Q4H PRN sodium chloride 0.9% flush 0.5-20 mL 0.5-20 mL intra-catheter PRN And Carrier Fluids for Secondary Infusion - 0.9% Sodium Chloride 30 mL intravenous PRN dextrose (GLUTOSE) 40 % gel 15 g 15 g oral Q15 Min PRN Or dextrose (D10W) 10% bolus 250 mL 250 mL intravenous Q15 Min PRN glucagon injection 1 mg 1 mg intramuscular Q30 Min PRN HYDROmorphone (DILAUDID) injection 0.5 mg 0.5 mg intravenous Q4H PRN 0.5 mg at 04/18/23 1818 ipratropium-albuteroL (DUO-NEB) 0.5-2.5 mg/3 mL nebulizer solution 3 mL 3 mL nebulization Q4H PRN (RT) ondansetron ODT (ZOFRAN-ODT) disintegrating tablet 4 mg 4 mg oral Q6H PRN Or ondansetron (ZOFRAN) injection 4 mg 4 mg intravenous Q6H PRN sodium chloride (OCEAN) 0.65 % nasal spray 1 spray 1 spray each nostril Q2H PRN sodium chloride 0.9% flush 5-20 mL 5-20 mL intra-catheter PRN My review of labs, imaging, notes and other tests is significant for Recent Labs Lab Units 04/19/23 0744 04/18/23 0646 04/17/23 0510 WBC K/cumm 26.1* 26.9* 22.4* HEMOGLOBIN g/dL 9.3* 8.2* 8.2* HEMATOCRIT % 31.2* 26.1* 26.7* PLATELETS K/cumm 501* 572* 579* . Recent Labs Lab Units 04/19/23 1125 04/19/23 0749 04/19/23 0744 04/18/23 0718 04/18/23 0646 04/17/23 0748 04/17/23 0510 SODIUM mmol/L -- -- 139 -- 140 -- 136 POTASSIUM PLASMA mmol/L -- -- 3.6 -- 3.7 -- 3.9 CHLORIDE mmol/L -- -- 107 -- 109 -- 106 CO2 mmol/L -- -- 22 -- 24 -- 20* CREATININE mg/dL -- -- 1.70* -- 1.80* -- 2.10* GLUCOSE mg/dL -- -- 77 -- 137 -- 99 POC GLUCOSE MONITOR mg/dL 71 82 -- < > -- < > -- CALCIUM mg/dL -- -- 7.9* -- 7.7* -- 7.8* ALBUMIN g/dL -- -- 1.3* -- 1.7* -- 1.3* PHOSPHORUS PLASMA mg/dL -- -- 3.8 -- 4.3 -- 4.2 < > = values in this interval not displayed. .No lab exists for component: COLORUA, CHARACTERUA, SPECGRAVUA, PHUA, PROTEINUA, BLOODUA, LEUKOCYTEUA, NITRITEUA, GLUCOSEUA, KETONEUA, BILIRUBINUA, UROBILINUA, WBCUA, RBCUA, EPITHUA, MUCUSUA, CASTUA,CRYSTALUA, BACTERIAUA, YEASTUA, TRICHUA XR Chest 1 View EXAM DESCRIPTION: XR CHEST 1 VIEW REASON FOR STUDY: Shortness of breath Pt with sob, weakness x 2-3 days on day of admit (04/15/23 TECHNIQUE: Frontal radiographic view(s) of the chest. COMPARISON: 04/17/2023 FINDINGS: Mild airspace and interstitial opacities, likely improved compared to 04/17/2023. Likely small pleural effusions. No definite pneumothorax. Moderate cardiomegaly is stable. Apparent placement of a partially imaged right PICC with tip projecting over the region of the right brachiocephalic vein. IMPRESSION: 1. Mild airspace and interstitial opacities, likely pulmonary edema. 2. Stable cardiomegaly. 3. Apparent placement of a right PICC with tip projecting over the region of the right brachiocephalic vein. This was discussed with Cameron SAMUEL at approximately 8 a.m. on 04/19/2023. THIS IS AN ELECTRONICALLY VERIFIED FINAL REPORT 04/19/2023 8:02 AM - Electronically signed by Robbi Phan M.D. AG T: Report ID: [id number] Reading Location: [place] [id number] Assessment and Plan Active Problems: Acute diastolic congestive heart failure (CMS/HCC) (HCC) Type II diabetes mellitus with foot ulcer (HCC) Hypertension Acute respiratory failure with hypoxia (CMS/HCC) (HCC) Diarrhea Acute kidney failure (HCC) Elevated troponin Osteomyelitis (HCC) Wounds, multiple Resolved Problems: No resolved hospital problems. BOBBY on CKD in the setting of significant volume overload/pulmonary edema, unclear whether has obstructive uropathy as well, will check a postvoid residual. Does appear quite volume overloaded and will initiate IV furosemide. Obtaining a urinalysis with microscopy as well as a spot urine protein to c reatinine ratio as albumin is 1.8, likely has significant proteinuria. May need to order autoimmuneserology if active UA sediment. Echocardiogram is pending, previous echo with adequate EF and mild diastolic dysfunction. Obtaining a renal ultrasound as well. No acute need for dialysis and hopefully to respond to diuretics. Does have significant leukocytosis may have underlying infection, blood cultures pending, initiated on empiric antibiotics as well. 04/16/2023 Denies any urinary symptoms. Continue furosemide 80 mg IV b.i.d.. Has sub nephrotic proteinuria was1.8 g per g as per a spot sample. Continues to have significantly high leukocytosis. On antibiotics. Urine output noted, probably incomplete. Anemia. Will check iron profile, B12 and folate. Monitor urine output accurately. 2D echo is pending. 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 Noted vascular surgery recommendations regarding a rightabove-knee amputation which the patient declines. 04/17 Serum creatinine down to 2.1 today. Continue diuretics. Serum albumin 1.3. Multifactorial hypoalbuminemia. Non nephrotic range albuminuria previously unlikely primarily secondary to chronic inflammation. Reported diabetic retinopathy with potential need for intervention. Would hold off on prophylactic 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 for now in the setting of hypoalbuminemia. Plans are for PICC line with prolonged antibiotics for attempted limb salvage. Prognosis is extremely guarded. Started on folate and ironreplacement and will add vitamin-D replacement as well given deficiency. 04/18 Creatinine is improving. Down to 1.80. K 3.7, UOP 5000 ml yesterday. Improved creatinine with diuresis. BP 147/77 but variable and lower at times. 2 D Echo with normal EF but with diastolic dysfunction. Likely diabetic kidney disease in the setting of longstanding diabetes as well as diabetic retinopathy. Continue diuresis with furosemide at current dose of 80 mg IV b.i.d.. He is diuresing well. On antibiotics as per primary team/ID/vascular for the diabetic foot infection. She does not have a good appetite and this may be due to her ongoing infection. Likely not related to diminished renal function. Avoid hypotension and nephrotoxins. 04/19/23 Urine output 4-5 0 mL yesterday. Blood pressure 143/78 mmHg. Potassium 3.6, creatinine 1.70 (improved from 1.80 yesterday). Albumin is 1.3. On furosemide 80 mg IV q.12. Adding spironolactone 25 mg p.o. b.i.d.. Will try convert to oral furosemide in the near future. Significant hypoalbuminemia, likely effect of long-term malnutrition, chronic inflammation/infection, proteinuria. Improving nutrition will help but may not be possible without complete treatment of the infection. Monitor electrolytes and adjust spironolactone accordingly. Thank you. Dallas Peña MD [facility] Nephrology and Hypertension Office: [phone] * Erwin Butcher MD - 04/19/2023 7:56 AM CDT Progress Note Patient: Leeroy Canales ( - 1990) is a 32 y.o. female. Visit Date: 04/15/2023 Chief Complaint Patient presents with Shortness of Breath History of Present Illness: The patient is pleasant 32-year-old female who is bed-bound. 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 She is been taking care of by her mom and her sister. She does have history of diabetes. She does not smoke. She presented the emergency room complaining of progressive shortness of breath and cough for the past week or 2. Patient also was having trouble with a wound to her right foot and she is been having nausea. Her initial lab work showed creatinine 2 point 7, alk-phos 381 and albumin 1.8, ABGs showed pH 7.40, pCO2 36 and PO2 49 on room air, [place]BC [place] [address]. Urinalysis showed UTI. Chest x-ray showed Findings are suggestive of pulmonary edema. Her V/Q scan was negative, her D-dimer was elevated. Patient was started on oxygen 4 liter/minute. She does not use oxygenat home or inhaler. She was admitted to the hospital and consultation was requested for further evaluation and management. Upon evaluating the patient, her attitude was depressed or flat. She does report slight postnasal drainage. She does report PND and orthopnea. She denies any history of hemoptysis, epistaxis, hematemesis, melena, hematochezia, diarrhea but constipation. She denies any history syncope or seizure activity. She denies history of fever or chills. She denies any contact with sick people or exposure toTB. She is up-to-date with COVID-19 vaccine. She lives in [place], [place]. She does havea cat at home who does not sleep in her bed. Patient does not ambulate. She was started on cefepime, daptomycin for treatment of possible osteomyelitis. 04/16 -Patient was seen and examined. Lab data were reviewed. Chest x-ray was reviewed by me. medication list was reviewed and adjusted as necessary. Patient is hemodynamically stable. Patient is afebrile.No event overnight. Questions by the patient about the care, plan, medication and possible side effects/ complication of treatment/ medication/ procedures were discussed with patient/ caring agents/ family in details to their satisfaction and understanding. Patient case discussed with the nurse caring for the patient. Patient is doing fair. Patient is feeling okay. She slept okay overnight. Her fluid balance was-400mL. No bowel movement was recorded. She is oxygenating adequately on 4 liter/minute of oxygen. 04/17 -Patient was seen and examined. Lab data were reviewed. Chest x-ray was reviewed by me. medication list was reviewed and adjusted as necessary. Patient is hemodynamically stable. Patient is afebrile.No event overnight. Questions by the patient about the care, plan, medication and possible side effects/ complication of treatment/ medication/ procedures were discussed with patient/ caring agents/ family in details to their satisfaction and understanding. Patient case discussed with the nurse caring for the patient. Patient is doing fair. Patient is feeling better. She is breathing easier. She slept okay overnight. Her oxygenation is adequate on 4 liter[place] [address], albumin 1.3, fluid balance was-1 L. She did have bowel movement overnight. 04/18 -Patient was seen and examined. Lab data were reviewed. Chest x-ray was reviewed by me. medication list was reviewed and adjusted as necessary. Patient is hemodynamically stable. Patient is afebrile.No event overnight. Questions by the patient about the care, plan, medication and possible side effects/ complication of treatment/ medication/ procedures were discussed with patient/ caring agents/ family in details to their satisfaction and understanding. Patient case discussed with the nurse caring for the patient. Patient is doing fair. Patient is unchanged. She slept very good overnight. She is oxygenating adequately on 2-4 liter/minute of oxygen. Her fluid balance was - 3 L. She did have bowel movement overnight. Albumin [place] 1.3, [place] [address]. 04/19 I saw the patient this morning and she was lying in bed and kept her head covered for most of the conversation. She reports her breathing is significantly improved. She has a minimal cough and deniesany sputum production or wheezing. She is afebrile and remains on 4 L of supplemental oxygen with saturations in the mid 90s. Labs are pending this morning but she has had continued improvement in renal function with significant diuresis Past Medical History: Past Medical History: Diagnosis Date CHF (congestive heart failure) (CMS/HCC) (HCC) CKD (chronic kidney disease) Diabetes mellitus (HCC) Hx of AKA (above knee amputation) (CMS/[facility]) (HCC) Left Hypertension Surgical History: Past Surgical History: Procedure Laterality Date ABOVE KNEE LEG AMPUTATION Left Current Medications: Current Facility-Administered Medications Medication Dose Route Frequency Provider Last Rate Last Admin acetaminophen (TYLENOL) tablet 650 mg 650 mg oral Q4H PRN Amilcar Hancock MD sodium chloride 0.9% flush 0.5-20 mL 0.5-20 mL intra-catheter Q8H Amilcar Vee MD 10 mL at04/19/23 0603 And sodium chloride 0.9% flush 0.5-20 mL 0.5-20 mL intra-catheter PRN Amilcar Hancock MD And Carrier Fluids for Secondary Infusion - 0.9% Sodium Chloride 30 mL intravenous PRN Amilcar Hancock MD cefTRIAXone (ROCEPHIN) 2,000 mg/20 mL in sterile water (premix) 2,000 mg 2,000 mg intravenous Q24H Dante Fitzgerald MD 2,000 mg at 04/18/23 0911 DAPTOmycin (CUBICIN) 50 mg/mL sodium chloride 0.9% 700 mg 700 mg intravenous Q24H Amilcar Hancock MD 700 mg at 04/18/23 1559 dextrose (GLUTOSE) 40 % gel 15 g 15 g oral Q15 Min PRN Amilcar Hancock MD Or dextrose (D10W) 10% bolus 250 mL 250 mL intravenous Q15 Min PRN Amilcar Hancock MD ergocalciferol (VITAMIN D) capsule 50,000 Units 50,000 Units oral Weekly Golden Kidd MD 50,000 Units at 04/17/23 1437 folic acid (FOLVITE) tablet 1 mg 1 mg oral Daily Hien Rabago MD 1 mg at 04/18/23 0911 furosemide (LASIX) 10 mg/mL injection 80 mg 80 mg intravenous BID DIURETIC Amilcar Hancock MD 80 mg at 04/18/23 1559 glucagon injection 1 mg 1 mg intramuscular Q30 Min PRN Amilcar Hancock MD heparin 5,000 unit/mL injection 7,500 Units 7,500 Units subcutaneous Q8H ERICK Amilcar Hancock MD 7,500 Units at 04/19/23 0602 HYDROmorphone (DILAUDID) injection 0.5 mg 0.5 mg intravenous Q4H PRN Hien Rabago MD 0.5 mgat 04/18/23 1818 insulin glargine (LANTUS, SEMGLEE) 100 unit/mL injection 22 Units 0.15 Units/kg subcutaneous Nightly Amilcar Hancock MD 22 Units at 04/18/23 2321 insulin lispro (HumaLOG, ADMELOG) 100 unit/mL injection 0-4 Units 0-4 Units subcutaneous Nightly Amilcar Hancock MD insulin lispro (HumaLOG, ADMELOG) 100 unit/mL injection 0-5 Units 0-5 Units subcutaneous TID with meals Amilcar Hancock MD insulin lispro (HumaLOG, ADMELOG) 100 unit/mL injection 7 Units 0.05 Units/kg subcutaneous TID withmeals Amilcar Hancock MD 7 Units at 04/16/23 180 ipratropium-albuteroL (DUO-NEB) 0.5-2.5 mg/3 mL nebulizer solution 3 mL 3 mL nebulization Q4H PRN (RT) Darell Paniagua MD metroNIDAZOLE (FLAGYL) tablet 500 mg 500 mg oral TID Dante Stubbs MD 500 mg at 04/18/23 2321 ondansetron ODT (ZOFRAN-ODT) disintegrating tablet 4 mg 4 mg oral Q6H PRN Amilcar Hancock MD Or ondansetron (ZOFRAN) injection 4 mg 4 mg intravenous Q6H PRN Amilcar Hancock MD sodium chloride (OCEAN) 0.65 % nasal spray 1 spray 1 spray each nostril Q2H PRN Darell Paniagua MD sodium chloride 0.9% flush 5-10 mL 5-10 mL intra-catheter Q12H ERICK Hien Rabago MD 10 mL at04/18/23 2323 sodium chloride 0.9% flush 5-20 mL 5-20 mL intra-catheter PRN Hien Rabago MD thiamine (VITAMIN B-1) tablet 50 mg 50 mg oral Daily Hien Rabago MD 50 mg at 04/18/23 0911 Allergies: No Known Allergies Family History: History reviewed. No pertinent family history. Social History: Social History Tobacco Use Smoking status: Never Smokeless tobacco: Never Substance and Sexual Activity Drug use: Never Sexual activity: None Alcohol Use: Not on file Review of Systems: Review of Systems Constitutional: Positive for fatigue. Negative for appetite change, chills and fever. HENT: Negative for congestion, ear pain, mouth sores, tinnitus and voice change. Eyes: Negative for photophobia and pain. Respiratory: Positive for cough and shortness of breath. Negative for choking and stridor. Cardiovascular: Positive for leg swelling. Negative for chest pain and palpitations. Gastrointestinal: Negative for abdominal distention, abdominal pain and nausea. Endocrine: Negative for cold intolerance and polyphagia. Genitourinary: Negative for dysuria and hematuria. Musculoskeletal: Positive for gait problem. Negative for joint swelling. Skin: Negative for pallor and rash. Allergic/Immunologic: Negative for immunocompromised state. Neurological: Positive for weakness. Negative for seizures and facial asymmetry. Hematological: Negative for adenopathy. Does not bruise/bleed easily. Psychiatric/Behavioral: Negative for agitation and confusion. Physical Exam: Vitals: 04/18/23 2100 04/18/23 2338 04/19/23 0439 04/19/23 0700 BP: 147/84 144/76 129/61 BP Location: Left arm Left arm Right arm Patient Position: Lying;HOB 30 degrees Lying;HOB 30 degrees Pulse: 84 88 91 93 Resp: 19 20 18 Temp: 36.5 ??C (97.7 ??F) 36.2 ??C (97.2 ??F) 36.6 ??C (97.9 ??F) TempSrc: Oral Axillary Axillary SpO2: 90% 94% 95% Weight: Height: Physical Exam Constitutional: General: She is not in acute distress. Appearance: She is well-developed. She is morbidly obese. She is ill-appearing. She is not diaphoretic. HENT: Head: Normocephalic and atraumatic. Neck: Thyroid: No thyromegaly. Cardiovascular: Rate and Rhythm: Normal rate and regular rhythm. Heart sounds: No murmur heard. No gallop. Pulmonary: Effort: Pulmonary effort is normal. No accessory muscle usage or respiratory distress. Breath sounds: No stridor. Examination of the right-upper field reveals decreased breath sounds. Examination of the left-upper field reveals decreased breath sounds. Examination of the right-lower field reveals rales. Examination of the left-lower field reveals rales. Decreased breath sounds and rales present. Chest: Chest wall: No tenderness. Abdominal: General: Bowel sounds are normal. There is no distension. Palpations: Abdomen is soft. Tenderness: There is no abdominal tenderness. Musculoskeletal: General: No tenderness or deformity. Normal range of motion. Cervical back: Normal range of motion and neck supple. Right lower leg: Edema present. Left lower leg: Edema present. Comments: Left BKA Lymphadenopathy: Cervical: No cervical adenopathy. Skin: General: Skin is warm and dry. Capillary Refill: Capillary refill takes less than 2 seconds. Findings: Lesion and rash present. No erythema. Neurological: Mental Status: She is alert and oriented to person, place, and time. Cranial Nerves: No cranial nerve deficit. Motor: Weakness present. Coordination: Coordination normal. Psychiatric: Mood and Affect: Mood is depressed. Behavior: Behavior normal. Data Reviewed Recent Results (from the past 24 hour(s)) POCT glucose Collection Time: 04/18/23 11:29 AM Result Value Ref Range Glucose, POC 124 70 - 199 mg/dL Glucose comment 1 Use This Result POCT glucose Collection Time: 04/18/23 4:26 PM Result Value Ref Range Glucose, POC 99 70 - 199 mg/dL Glucose comment 1 Use This Result POCT glucose Collection Time: 04/18/23 7:31 PM Result Value Ref Range Glucose, POC 125 70 - 199 mg/dL Glucose comment 1 Use This Result POCT glucose Collection Time: 04/19/23 7:49 AM Result Value Ref Range Glucose, POC 82 70 - 199 mg/dL Glucose comment 1 Use This Result Glucose comment 2 RN/MD Notified Images: NM Pulmonary Perfusion Imaging Result Date: 04/15/2023 Narrative: EXAM DESCRIPTION: NM PULMONARY PERFUSION IMAGING RADIOPHARMACEUTICAL: 4 mCi Tc-99m MAA via a right antecubital vein IV site REASON FOR STUDY: Chest pain. Shortness of breath and cough. TECHNIQUE: Limited multi-planar perfusion scintigrams were obtained. COMPARISON: Chest radiograph 04/15/2023 FINDINGS: Perfusion images obtained in the anterior, anterior oblique, and lateral projections were obtained. The posterior and posterior oblique projections were not obtained. There is mild enlargement of the cardiomediastinal silhouette. There are no large segmental perfusion defects on theprovided images. IMPRESSION: 1. Limited perfusion lung scan with a low probability for pulmonary embolism. THIS IS AN ELECTRONICALLY VERIFIED FINAL REPORT 04/15/2023 4:31 PM - Electronically signed byAmor MAURER T: Report ID: [id number] Reading Location: [id number] XR Foot Right 3 or More Views Result Date: 04/15/2023 Narrative: EXAM DESCRIPTION: XR FOOT RIGHT 3 OR MORE VIEWS REASON FOR STUDY: Wound infection TECHNIQUE: 3 radiographic view(s) of the right foot . COMPARISON: 02/20/2023 FINDINGS: Plantar soft tissueulceration of the hindfoot with underlying soft tissue gas. There is diffuse soft tissue swelling of the foot, particularly involving the dorsal aspect of the mid to forefoot. No radiopaque foreign bodies. There is suspected mild osseous cortical erosion involving the plantar aspect of the calcaneus when compared to the prior exam. No acute fracture or dislocation. IMPRESSION: Prominent soft tissue ulceration of the plantar aspect of the hindfoot with underlying soft tissue gas. Suspected osseous cortical erosion involving the plantar aspect of the calcaneus, concerning for acute osteomyelitis. THIS IS AN ELECTRONICALLY VERIFIED FINAL REPORT 04/15/2023 2:51 PM - Electronically signed by Rio PHILLIPS T: Report ID: [id number] Reading Location: [id number] XR Chest 1 Vw Portable Result Date: 04/15/2023 Narrative: EXAM DESCRIPTION: XR CHEST 1 VIEW REASON FOR STUDY: Shortness of breath Pt with sob, weakness x 2-3 days Hx lg necrotic wnd on rt foot that she is being treated for Pt is lt leg amputee above the knee TECHNIQUE: 1 radiographic view(s) of the chest. COMPARISON: None FINDINGS: LUNGS: Diffuse bilateral interstitial opacities. No focal consolidation. No pneumothorax. No large pleural effusion. HEART/MEDIASTINUM: Cardiac silhouette is enlarged.. Mediastinal and hilar contours appear normal. LINES/TUBES: None. BONES: No acute osseous abnormality. IMPRESSION: Findings are suggestive of pulmonary edema. THIS IS AN ELECTRONICALLY VERIFIED FINAL REPORT 04/15/2023 2:43 PM - Electronically signed by Rio PHILLIPS T: Report ID: [id number] Reading Location: [id number] Assessment and Plan: Assessment Acute hypoxemic respiratory failure secondary to fluid overload/pulmonary edema and possible sepsis. No history of smoking. Bed bound. Right BKA. Renal insufficiency. Plan Oxygen keep ox saturation more than 92%. Bronchodilators around the clock and as needed with albuterol and Atrovent. Head of bed elevation and aspiration precaution. Diuresis, monitor O2 retires and fluid balance, monitor kidney function. Incentive spirometry and physical therapy. Out of bed to the chair if possible. Pulmonary toilet and pep valve. Check blood culture, sputum culture, ESR, CRP, BNP, procalcitonin and MRSA. Saline nasal spray twice daily. Patient would need outpatient split sleep study. Condition is guarded. Will monitor patient closely. Continue antibiotics, daptomycin and cefepime. Check 2D echocardiogram. 04/16 -continue daptomycin, cefepime, day 2., patient would need 2D echocardiogram to evaluate her cardiomegaly and fluid overload on chest x-ray. Continue monitoring electrolytes, kidney function, input and output. Continue bronchodilators, oxygen supplement keep ox saturation more than 92%, head of bedelevation, aspiration precaution, pep valve, pulmonary toilet, DVT and stress ulcer prophylaxis, continue wound care and continue monitor patient closely. Patient condition is guarded. 04/17 -daptomycin, cefepime(was switched to ceftriaxone and Flagyl), day 3., 2D echocardiogram was reviewed. Continue nutritional support, head of bed elevation, aspiration precaution, pulmonary toilet, DVT and stress ulcer prophylaxis, pep valve, bronchodilators, oxygen supplement keep ox saturation more than 92%, wean oxygen as tolerated, continue wound care, continue diuresis, monitor electrolytes and fluid balance, patient condition continued to be guarded. 04/18 -antibiotics, ceftriaxone, Flagyl and daptomycin, day number 4 continue weaning oxygen keep ox saturation more than 92%, head of bed elevation, aspiration precaution, bronchodilators, incentive spirometry, physical therapy, pep valve, DVT and stress ulcer prophylaxis, pulmonary toilet, continue wound care, diuresis, monitor electrolytes and fluid balance, continue monitor patient closely. She would need outpatient split sleep study. 04/19 - again respiratory failure seems to be likely related to volume overload and acute renal insufficiency. This continues to improve with diuresis. Awaiting labs from today but will continue to monitorrenal function and electrolytes. She continues on antibiotics for right lower extremity osteomyelitis. Low suspicion for eosinophilic pneumonia/pneumonitis from daptomycin. Wean oxygen as tolerated and recommend sleep study as an outpatient. Pulmonary will follow peripherally over the weekend. The patient will be seen by Dr. Paniagua on Friday. Please call with any further questions Rendering Provider & Department: Erwin Butcher MD THIS NOTE WAS CREATED IN PART WITH THE ASSISTANCE OF [employer] VOICE RECOGNITION SOFTWARE. ASSISTANT PRODUCER VARIANCES MAY OCCUR. For patients or family members viewing this note through [employer]: This note was written as a communication tool between healthcare providers and may contain technical language, terminology and abbreviations that is difficult to interpret without advanced medical training. If you have questions or concerns regarding what is written in this note, please request to speak with the healthcare provider taking care of you or your family member. * Hien Rabago MD - 04/18/2023 3:07 PM CDT General Medicine Daily Progress DOA: 04/15/2023 Subjective Chief complaint of . Dyspnea Interval History: Dyspnea is improving Podiatry consulted for right heel osteomyelitis ulcer Past Medical History: Diagnosis Date CHF (congestive heart failure) (CMS/HCC) (HCC) CKD (chronic kidney disease) Diabetes mellitus (HCC) Hx of AKA (above knee amputation) (CMS/HCC) (HCC) Left Hypertension Objective Vitals: 24hr Min/Max: Temp Min: 36.4 ??C (97.5 ??F) Max: 37.2 ??C (99 ??F) Pulse Min: 86 Max: 93 BP Min: 128/61 Max: 149/81 Resp Min: 18 Max: 18 SpO2 Min: 89 % Max: 92 % Most Recent : Vitals: 04/18/23 1100 BP: 128/61 Pulse: 89 Resp: 18 Temp: 36.4 ??C (97.5 ??F) SpO2: 92% I/O last 2 completed shifts: In: 885 [P.O.:750; IV Piggyback:135] Out: 5000 [Urine:5000] I/O this shift: In: 605 [P.O.:445; I.V.:40; IV Piggyback:120] Out: 1900 [Urine:1900] Physical Exam: Physical Exam Constitutional: General: She is in acute distress. Appearance: She is well-developed. She is obese. She is ill-appearing. She is not diaphoretic. HENT: Head: Normocephalic. Mouth/Throat: Mouth: Mucous membranes are moist. Pharynx: Oropharynx is clear. No pharyngeal swelling. Eyes: Pupils: Pupils are equal, round, and reactive to light. Neck: Thyroid: No thyromegaly. Cardiovascular: Rate and Rhythm: Normal rate and regular rhythm. Pulmonary: Effort: Pulmonary effort is normal. No tachypnea. Breath sounds: Decreased breath sounds and rhonchi present. No wheezing or rales. Chest: Chest wall: No mass. Abdominal: General: Bowel sounds are normal. Palpations: Abdomen is soft. There is no hepatomegaly. Musculoskeletal: General: Normal range of motion. Cervical back: Normal range of motion. Right lower leg: Edema present. Comments: Left AKA Skin: General: Skin is warm. Capillary Refill: Capillary refill takes less than 2 seconds. Findings: Erythema and rash present. Neurological: General: No focal deficit present. Mental Status: She is alert and oriented to person, place, and time. Psychiatric: Mood and Affect: Mood normal. Lab/Radiology/Diagnostic Review: Laboratory review: Chemistry BMP Lab Results Component Value Date GLUCOSE 124 04/18/2023 GLUCOSE 137 04/18/2023 CALCIUM 7.7 (L) 04/18/2023 SODIUM 140 04/18/2023 POTASSIUM 3.7 04/18/2023 CO2 24 04/18/2023 BUNSER 34 (H) 04/18/2023 CREATININE 1.80 (H) 04/18/2023 and CBC: Lab Results Component Value Date WBC 26.9 (H) 04/18/2023 RBC 3.08 (L) 04/18/2023 HGB 8.2 (L) 04/18/2023 HCT 26.1 (L) 04/18/2023 MCV 84.7 04/18/2023 MCH 26.6 (L) 04/18/2023 MCHC 31.4 (L) 04/18/2023 RDWCV 17.5 (H) 04/18/2023 RDWSD 54.6 (H) 04/18/2023 MPV 9.0 (L) 04/18/2023 NRBCABS 0.09 (H) 04/18/2023 Current Facility-Administered Medications Medication Dose Route Frequency Provider Last Rate Last Admin acetaminophen (TYLENOL) tablet 650 mg 650 mg oral Q4H PRN Amilcar Hancock MD sodium chloride 0.9% flush 0.5-20 mL 0.5-20 mL intra-catheter Q8H ERICK Amilcar Hancock MD 10 mL at04/18/23 0623 And sodium chloride 0.9% flush 0.5-20 mL 0.5-20 mL intra-catheter PRN Amilcar Hancock MD And Carrier Fluids for Secondary Infusion - 0.9% Sodium Chloride 30 mL intravenous PRN Amilcar Hancock MD cefTRIAXone (ROCEPHIN) 2,000 mg/20 mL in sterile water (premix) 2,000 mg 2,000 mg intravenous Q24H Dante Fitzgerald MD 2,000 mg at 04/18/23 0911 DAPTOmycin (CUBICIN) 50 mg/mL sodium chloride 0.9% 700 mg 700 mg intravenous Q24H Amilcar Hancock MD 700 mg at 04/17/23 1558 dextrose (GLUTOSE) 40 % gel 15 g 15 g oral Q15 Min PRN Amilcar Hancock MD Or dextrose (D10W) 10% bolus 250 mL 250 mL intravenous Q15 Min PRN Amilcar Hancock MD ergocalciferol (VITAMIN D) capsule 50,000 Units 50,000 Units oral Weekly Golden Kidd MD 50,000 Units at 04/17/23 1437 folic acid (FOLVITE) tablet 1 mg 1 mg oral Daily Hien Rabago MD 1 mg at 04/18/23 0911 furosemide (LASIX) 10 mg/mL injection 80 mg 80 mg intravenous BID DIURETIC Amilcar Hancock MD 80 mg at 04/18/23 0911 glucagon injection 1 mg 1 mg intramuscular Q30 Min PRN Amilcar Hancock MD heparin 5,000 unit/mL injection 7,500 Units 7,500 Units subcutaneous Q8H [facility] Amilcar Hancock MD 7,500 Units at 04/18/23 0622 insulin glargine (LANTUS, SEMGLEE) 100 unit/mL injection 22 Units 0.15 Units/kg subcutaneous Nightly Amilcar Hancock MD 22 Units at 04/17/23 2128 insulin lispro (HumaLOG, ADMELOG) 100 unit/mL injection 0-4 Units 0-4 Units subcutaneous Nightly Amilcar Hancock MD insulin lispro (HumaLOG, ADMELOG) 100 unit/mL injection 0-5 Units 0-5 Units subcutaneous TID with meals Amilcar Hancock MD insulin lispro (HumaLOG, ADMELOG) 100 unit/mL injection 7 Units 0.05 Units/kg subcutaneous TID withmeals Amilcar Hancock MD 7 Units at 04/16/23 1801 ipratropium-albuteroL (DUO-NEB) 0.5-2.5 mg/3 mL nebulizer solution 3 mL 3 mL nebulization Q4H PRN (RT) Darell Paniagua MD metroNIDAZOLE (FLAGYL) tablet 500 mg 500 mg oral TID Dante Stubbs MD 500 mg at 04/18/23 0911 ondansetron ODT (ZOFRAN-ODT) disintegrating tablet 4 mg 4 mg oral Q6H PRN Amilcar Hancock MD Or ondansetron (ZOFRAN) injection 4 mg 4 mg intravenous Q6H PRN Amilcar Hancock MD sodium chloride (OCEAN) 0.65 % nasal spray 1 spray 1 spray each nostril Q2H PRN Darell Paniagua MD sodium chloride 0.9% flush 5-10 mL 5-10 mL intra-catheter Q12H ERICK Hien Rabago MD 10 mL at04/18/23 0912 sodium chloride 0.9% flush 5-20 mL 5-20 mL intra-catheter PRN Hien Rabago MD thiamine (VITAMIN B-1) tablet 50 mg 50 mg oral Daily Hien Rabago MD 50 mg at 04/18/23 0911 Assessment/Plan Active Problems: Acute diastolic congestive heart failure (CMS/HCC) ([facility]) Type II diabetes mellitus with foot ulcer (HCC) Hypertension Acute respiratory failure with hypoxia (CMS/HCC) ([facility]) Diarrhea Acute kidney failure (HCC) Elevated troponin Osteomyelitis ([facility]) Wounds, multiple Plan # acute hypoxemic respiratory failure 2/2 CHF exacerbation with acute heart failure -on 4 L supplemental oxygen -patient is morbidly obese, likely OHS component -echocardiogram to rule out heart failure exacerbation -on Lasix 80 mg IV b.i.d. 04/18 Respiratory distress improved, on 3 L supplemental oxygen from 4 L -patient needs outpatient sleep study Afebrile, persistent leukocytosis On ceftriaxone, Flagyl day 3, daptomycin day for Echocardiogram shows normal systolic function, noted LV diastolic function with mild to moderate pericardial effusion, mild TR and elevated right heart pressures Podiatric consulted for osteomyelitis site debridement # COPD -continue bronchodilator # iron-deficiency anemia and folate deficiency -started on iron sucrose IV and then oral -started on thiamine and folic acid # acute osteomyelitis of the right foot calcaneum # abdominal wall infection panniculitis -on ceftriaxone, metronidazole and daptomycin day 1 -patient refused right BKA per vascular surgery scheduler -PICC line order today for long time antibiotic regimen -follow ID consult recommendations -podiatry consulted # diabetes mellitus -continue insulin regimen # CKD 3A secondary to possible nephrotic syndrome Stable -follow renal consult recommendation # PVD -follow vascular surgery recommendation DVT prophylaxis: Heparin GI prophylaxis: Ppi Rehab consult: Ongoing CODE status: Full Code Discharge disposition: Home * Kerrie Rocha MSW - 04/18/2023 2:19 PM CDT IP Social Work Assessment Social History: Prior to admission the patient lived at home with mother. Home DME: w/c Impressions: RF TEST TECHNICIAN met with patient at bedside to discuss dc planning. Patient was A&Ox 4, pleasant, and cooperative. Patient will likely benefit from LTAC ([facility]) at d/c. Patient agrees with dc plan. Based on a comprehensive family assessment, assistance with instrumental activities of daily livingafter discharge will be provided by LTAC (Longterm Acute Care). Pt has the knowledge of available resources and that combining them with their existing resources will suffice and sustain care at discharge. The treatment team is aware of this information. All are in agreement with the aftercare plan. Problem: Patient identified for social work consult due to d/c planning . Leeroy Canales would benefit from continued therapy services at d/c. Goal: Social work will work with Leeroy Canales and family for discharge planning needs.Social work assess for possible complex discharge concerns. Provide resources and education to help reduce readmission and improve bed bug exterminator health. Social Work Plan: RF TEST TECHNICIAN spoke with pt about bed bug exterminator antibiotic needs and options of ltac vs. Home infusion. Pt prefers LTAC. [facility], able to accept, will start auth once they have final antibiotic plan and to see if podiatry plans to do debridement. Per [facility], unable to accept, out of network. [facility] stated that they would follow along. Pt stated no preference to [facility] or [place] location. Additional Information: Primary Care Provider: Cherise Patrick PA Assessment: Social Determinates of Health: Transportation Needs: No Transportation Needs (04/16/2023) PRAPARE - Transportation Lack of Transportation (Medical): No Lack of Transportation (Non-Medical): No Social Connections: Socially Isolated (04/16/2023) Social Connection and Isolation Panel [NHANES] Frequency of Communication with Friends and Family: Never Frequency of Social Gatherings with Friends and Family: Never Attends Muslim Services: Never Active Member of Clubs or Organizations: No Attends Club or Organization Meetings: Never Marital Status: Never Food Insecurity: No Food Insecurity (04/16/2023) Hunger Vital Sign Worried About Running Out of Food in the Last Year: Never true Ran Out of Food in the Last Year: Never true Housing Stability: Unknown (04/16/2023) Housing Stability Vital Sign Unable to Pay for Housing in the Last Year: No Number of Places Lived in the Last Year: Not on file Unstable Housing in the Last Year: No Financial Resource Strain: Low Risk (04/16/2023) Overall Financial Resource Strain (CARDIA) Difficulty of Paying Living Expenses: Not hard at all Questions encouraged and answered. Will continue to follow progression of care and monitor for further discharge needs. VERONIKA Thurman 04/18/2023 2:19 PM * Sultan Sofía Muro MD - 04/18/2023 1:40 PM CDT +Patient ID: Leeroy Canales is a 32 y.o. female. Chief Complaint Patient presents with Shortness of Breath HPI: 04/15/2023.Patient is a 32 y.o. female with chief complaint of increasing dyspnea for the lastfew days. She is been dyspneic on lying down as well as on minimal activity. Cough on lying down. No chest pain. No nausea or vomiting. No fever or chills. No diarrhea. No palpitation, presyncope or syncope. No wheezing. She is morbidly obese. Has history of hypertension and insulin- dependent diabetes mellitus. She was told a few weeks ago that she might have congestive heart failure. Is no history of myocardial infarction. No coronary artery bypass surgery or coronary artery stenting. She underwent about the knee amputation of the left leg at [facility] a few months ago for osteomyelitis. On this ad mission, the chest x-ray shows gross cardiomegaly, fluid overload. She has stage IV close to stage 5 kidney disease. Severe hypoxia. No history of heavy drinking, smoking or drug abuse. 04/16/2023. No acute distress. No chest pain dyspnea orthopnea or PND. No cough. Monitor normal sinus rhythm. Workup in progress. Echo Doppler awaited. 04/17/2023. No acute distress. Chest pain or dyspnea. Monitor normal sinus. X- ray chest continues to show cardiomegaly and pulmonary congestion . Low serum albumin. Will check random urine protein creatinine ratio to look for nephrotic syndrome. Will check the lipid profile if not already done. Echo showed normal ejection fraction. No significant valvular abnormality. Small pericardial effusion. 04/18/2023. No acute distress. Monitor normal sinus. Rate 88. Random urine protein creatinine ratiois 3.605. Significantly abnormal and consistent with nephrotic syndrome. Will sign off from the cardiac viewpoint. Current Medications: acetaminophen sodium chloride 0.9% And sodium chloride 0.9% And sodium chloride 0.9% cefTRIAXone DAPTOmycin dextrose Or dextrose ergocalciferol folic acid furosemide glucagon heparin insulin glargine insulin lispro insulin lispro insulin lispro ipratropium-albuteroL metroNIDAZOLE ondansetron ODT Or ondansetron sodium chloride sodium chloride 0.9% sodium chloride 0.9% thiamine Review of Systems: Constitutional. No fever or chills. Morbid obesity. Central nervous system. No headaches. No seizures. Respiratory system.. Initially cough on lying down. No cough today. Cardiovascular system.. Initially dyspnea on mild activity and orthopnea. No palpitation, presyncope or syncope.. Hypertension. Congestive heart failure. GI tract.. No nausea, vomiting, abdominal pain. No diarrhea. Endocrine system. Insulin-dependent diabetes mellitus. Hematology/oncology. No anemia. No malignancy.. Psychiatric system. No anxiety or depression. tract. Renal insufficiency. Physical Exam: BP 128/61 (BP Location: Left arm, Patient Position: HOB 30 degrees) Pulse 89 Temp 36.4 ??C (97.5 ??F) (Oral) Resp 18 Ht 170.2 cm (5' 7 ) Wt (!) 144.2 kg (318 lb) SpO2 92% BMI 49.81 kg/m?? General. No acute distress. Centtral nervous system.. No focal deficits. The respiratory system. Lungs clear to auscultation and percussion. No rales or rhonchi.. Cardiovascular system. Heart regular. Normal S1 and S2. No murmur, gallop or click.. Abdomen. Soft nontender. Bowel sounds normal.. Skin. Warm and dry with good turgor.. Neck. No jugular venous distention.. Extremities. Left AKA. Lab Results Component Value Date CHOL 97 04/17/2023 HDL 38 (L) 04/17/2023 LDLCALC 47 04/17/2023 CHOLHDL 3 04/17/2023 TRIG 61 04/17/2023 SODIUM 140 04/18/2023 POTASSIUM 3.7 04/18/2023 CO2 24 04/18/2023 BUNSER 34 (H) 04/18/2023 GLUCOSE 124 04/18/2023 CREATININE 1.80 (H) 04/18/2023 CALCIUM 7.7 (L) 04/18/2023 CHLORIDE 109 04/18/2023 ALBUMIN 1.7 (L) 04/18/2023 ALT 24 04/18/2023 AST 18 04/18/2023 ALKPHOS 347 (H) 04/18/2023 BILITOT 0.3 04/18/2023 PROT 5.6 (L) 04/18/2023 WBC 26.9 (H) 04/18/2023 HGB 8.2 (L) 04/18/2023 TSH 4.01 04/16/2023 NPROBNP 11,534 (H) 04/16/2023 Assessment & Plan:1. Acute diastolic congestive heart failure. Mostly related to the renal insufficiency and possible nephrotic syndrome. Echo showed normal ejection fraction. 60-65%. Elevated right atrial pressure. No significant valvular abnormality. Lasix for decongestion . Nephrology consulting. 24 hour input 885 ,Output 5000. Net balance-4115. 2. Renal insufficiency. Sodium 140, potassium 3.7. BUN 34, creatinine 1.80. GFR 38 . Stage III B kidney disease. Nephrology consulting. 3. Primary hypertension. Blood pressure 128/61. Salt restriction. Lasix. 4. Insulin-dependent diabetes mellitus. 5. Morbid obesity. 6. Status post left AKA. 7. Elevated troponin T... Troponin T 97, 87, 94, 89. Most probably related to the renal insufficiency and congestive heart failure. 8. Leukocytosis. White cell count was 26.9. Blood cultures negative. Question of osteomyelitis right calcaneum. Rocephin. Maxipime. Cubicin. Flagyl. 9. Nephrotic syndrome. Random urine protein creatinine ratio 3,605. Consistent with nephrotic syndrome. Low serum albumin. Low oncotic pressure leading to third-spacing, edema and pulmonary congestion. Diuresis. Consider adding Aldactone. Will sign off from the cardiac viewpoint today. Sultan Sofía Muro MD * Dante Stubbs MD - 04/18/2023 8:57 AM CDT Progress Note Infectious Diseases Chief complaint: Right diabetic foot infection with osteomyelitis of the calcaneal bone. Subjective No pain today. No fevers. Objective Vitals: 04/18/23 0700 BP: 147/77 Pulse: 92 Resp: 18 Temp: 37.2 ??C (99 ??F) SpO2: 91% Constitutional: Alert, oriented x3. In no distress. Eyes: Sclerae anicteric, no conjunctival erythema Lungs: Clear breath sounds, no crackles, no wheezes Heart: Regular rate and rhythm, no murmurs Abdomen: Bowel sounds present, soft, nontender Skin: Warm and dry, No rashes Extremities: No edema. Right lower extremity stasis dermatitis. Right heel eschar soft. No drainage. Foul-smelling. Left AKA stump site no pressure related injuries. Neuro: No motor deficit Psych: No anxiety Current Medications: Current Facility-Administered Medications Medication Dose Route Frequency Provider Last Rate Last Admin acetaminophen (TYLENOL) tablet 650 mg 650 mg oral Q4H PRN Amilcar Hancock MD sodium chloride 0.9% flush 0.5-20 mL 0.5-20 mL intra-catheter Q8H ERICK Amilcar Hancock MD 10 mL at04/18/23 0623 And sodium chloride 0.9% flush 0.5-20 mL 0.5-20 mL intra-catheter PRN Amilcar Hancock MD And Carrier Fluids for Secondary Infusion - 0.9% Sodium Chloride 30 mL intravenous PRN Amilcar Hancock MD cefTRIAXone (ROCEPHIN) 2,000 mg/20 mL in sterile water (premix) 2,000 mg 2,000 mg intravenous Q24H Dante Fitzgerald MD 2,000 mg at 04/17/23 0917 DAPTOmycin (CUBICIN) 50 mg/mL sodium chloride 0.9% 700 mg 700 mg intravenous Q24H Amilcar Hancock MD 700 mg at 04/17/23 1558 dextrose (GLUTOSE) 40 % gel 15 g 15 g oral Q15 Min PRN Amilcar Hancock MD Or dextrose (D10W) 10% bolus 250 mL 250 mL intravenous Q15 Min PRN Amilcar Hancock MD ergocalciferol (VITAMIN D) capsule 50,000 Units 50,000 Units oral Weekly Golden Kidd MD 50,000 Units at 04/17/23 1437 ferric gluconate (FERRLECIT) 125 mg of elemental iron in sodium chloride 0.9% 100 mL IVPB 125 mg ofelemental iron intravenous Daily Hien Rabago MD 110 mL/hr at 04/17/23 1130 125 mg of elemental iron at 04/17/23 1130 folic acid (FOLVITE) tablet 1 mg 1 mg oral Daily Hien Rabago MD 1 mg at 04/17/23 0917 furosemide (LASIX) 10 mg/mL injection 80 mg 80 mg intravenous BID DIURETIC Amilcar Hancock MD 80 mg at 04/17/23 1719 glucagon injection 1 mg 1 mg intramuscular Q30 Min PRN Amilcar Hancock MD heparin 5,000 unit/mL injection 7,500 Units 7,500 Units subcutaneous Q8H [facility] Amilcar Hancock MD 7,500 Units at 04/18/23 0622 insulin glargine (LANTUS, SEMGLEE) 100 unit/mL injection 22 Units 0.15 Units/kg subcutaneous Nightly Amilcar Hancock MD 22 Units at 04/17/238 insulin lispro (HumaLOG, ADMELOG) 100 unit/mL injection 0-4 Units 0-4 Units subcutaneous Nightly Amilcar Hancock MD insulin lispro (HumaLOG, ADMELOG) 100 unit/mL injection 0-5 Units 0-5 Units subcutaneous TID with meals Amilcar Hancock MD insulin lispro (HumaLOG, ADMELOG) 100 unit/mL injection 7 Units 0.05 Units/kg subcutaneous TID withmeals Amilcar Hancock MD 7 Units at 04/16/23 1801 ipratropium-albuteroL (DUO-NEB) 0.5-2.5 mg/3 mL nebulizer solution 3 mL 3 mL nebulization Q4H PRN (RT) Darell Paniagua MD metroNIDAZOLE (FLAGYL) tablet 500 mg 500 mg oral TID Dante Stubbs MD 500 mg at 04/17/238 ondansetron ODT (ZOFRAN-ODT) disintegrating tablet 4 mg 4 mg oral Q6H PRN Amilcar Hancock MD Or ondansetron (ZOFRAN) injection 4 mg 4 mg intravenous Q6H PRN Amilcar Hancock MD sodium chloride (OCEAN) 0.65 % nasal spray 1 spray 1 spray each nostril Q2H PRN Darell Paniagua MD sodium chloride 0.9% flush 5-10 mL 5-10 mL intra-catheter Q12H ERICK Hien Rabago MD 10 mL at04/17/238 sodium chloride 0.9% flush 5-20 mL 5-20 mL intra-catheter PRN Hien Rabago MD thiamine (VITAMIN B-1) tablet 50 mg 50 mg oral Daily Hien Rabago MD 50 mg at 04/17/23 0917 No Known Allergies Social History Tobacco Use Smoking status: Never Smokeless tobacco: Never Substance and Sexual Activity Drug use: Never Sexual activity: None Alcohol Use: Not on file History reviewed. No pertinent family history. Lab Results Component Value Date HGBA1C 6.5 (H) 04/16/2023 TSH 4.01 04/16/2023 TIBC 186 (L) 04/16/2023 INR 1.3 (H) 04/15/2023 DDIMER 6,270 (H) 04/15/2023 CHOLHDL 3 04/17/2023 HCT 26.1 (L) 04/18/2023 MCH 26.6 (L) 04/18/2023 MCV 84.7 04/18/2023 MPV 9.0 (L) 04/18/2023 HDL 38 (L) 04/17/2023 RBC 3.08 (L) 04/18/2023 RDW 11.7 12/13/2017 WBC 26.9 (H) 04/18/2023 Blood cultures x2 set day 3 no growth Wound culture showed mix organism as well as group B strep. Assessment/Plan 1. Right diabetic foot infection with early signs of osteomyelitis of calcaneal bone. Soft tissue extensive necrosis. Currently on Rocephin, Flagyl and daptomycin day 4. Patient was seen by vascular surgery and declined above-knee amputation. I would recommend podiatry consult to debride necrotic tissue which is infected. 2. Leukocytosis with white count trending up at 26,000. WBC count was as high as 32,000 on admission. Suspect secondary to ongoing right heel infection. Will likely need debridement. 3. Type 2 diabetes blood sugars ranging between 81-137 4. Acute kidney injury creatinine is improving at 1.8. 5. Obesity with BMI of 49 Dante Stubbs MD [facility] Infectious Disease [place] Office [phone] * Dallas Peña MD - 04/18/2023 8:24 AM CDT Renal Progress Note Admit Date: 04/15/2023 Days: 3 Reason for Follow up: Acute on chronic kidney failure Clinical Course/New Symptoms Lying in bed in no distress. Notes lack of appetite. Denies any nausea or vomiting. Data Vitals: 04/18/23 0700 BP: 147/77 Pulse: 92 Resp: 18 Temp: 37.2 ??C (99 ??F) SpO2: 91% Exam Constitutional: alert and oriented. Appears well-developed and well-nourished, in no distress. HighBMI Head: Normocephalic. Eyes: No icterus, extraocular movements normal Neck: Neck supple. Cardiovascular: Normal rate and regular rhythm. No murmur heard. Pulmonary/Chest: Diminished breath sounds bilaterally, on oxygen via nasal cannula. Abdominal: Soft. Musculoskeletal: Right lower extremity edema. Heel ulcer is visible. Neurological: alert and moves all 4 limbs. Skin: No rashes Intake/Output Summary (Last 24 hours) at 04/18/2023 0824 Last data filed at 04/18/2023 0620 Gross per 24 hour Intake 885 ml Output 5000 ml Net -4115 ml MEDICATIONS FOR CURRENT ENCOUNTER: SCHEDULED MEDICATIONS: Scheduled Medications Medication Dose Route Frequency cefTRIAXone (ROCEPHIN) 2,000 mg/20 mL in sterile water (premix) 2,000 mg 2,000 mg intravenous Q24H ERICK DAPTOmycin (CUBICIN) 50 mg/mL sodium chloride 0.9% 700 mg 700 mg intravenous Q24H ergocalciferol (VITAMIN D) capsule 50,000 Units 50,000 Units oral Weekly ferric gluconate (FERRLECIT) 125 mg of elemental iron in sodium chloride 0.9% 100 mL IVPB 125 mg ofelemental iron intravenous Daily folic acid (FOLVITE) tablet 1 mg 1 mg oral Daily furosemide (LASIX) 10 mg/mL injection 80 mg 80 mg intravenous BID DIURETIC heparin 5,000 unit/mL injection 7,500 Units 7,500 Units subcutaneous Q8H ERICK insulin glargine (LANTUS, SEMGLEE) 100 unit/mL injection 22 Units 0.15 Units/kg subcutaneous Nightly insulin lispro (HumaLOG, ADMELOG) 100 unit/mL injection 0-4 Units 0-4 Units subcutaneous Nightly insulin lispro (HumaLOG, ADMELOG) 100 unit/mL injection 0-5 Units 0-5 Units subcutaneous TID with meals insulin lispro (HumaLOG, ADMELOG) 100 unit/mL injection 7 Units 0.05 Units/kg subcutaneous TID withmeals metroNIDAZOLE (FLAGYL) tablet 500 mg 500 mg oral TID sodium chloride 0.9% flush 0.5-20 mL 0.5-20 mL intra-catheter Q8H ERICK sodium chloride 0.9% flush 5-10 mL 5-10 mL intra-catheter Q12H ERICK thiamine (VITAMIN B-1) tablet 50 mg 50 mg oral Daily CONTINUOUS MEDICATIONS: Current Facility-Administered Medications Medication Dose Route Frequency Last Admin PRN MEDICATIONS: PRN Medications Medication Dose Route Frequency Last Admin acetaminophen (TYLENOL) tablet 650 mg 650 mg oral Q4H PRN sodium chloride 0.9% flush 0.5-20 mL 0.5-20 mL intra-catheter PRN And Carrier Fluids for Secondary Infusion - 0.9% Sodium Chloride 30 mL intravenous PRN dextrose (GLUTOSE) 40 % gel 15 g 15 g oral Q15 Min PRN Or dextrose (D10W) 10% bolus 250 mL 250 mL intravenous Q15 Min PRN glucagon injection 1 mg 1 mg intramuscular Q30 Min PRN ipratropium-albuteroL (DUO-NEB) 0.5-2.5 mg/3 mL nebulizer solution 3 mL 3 mL nebulization Q4H PRN (RT) ondansetron ODT (ZOFRAN-ODT) disintegrating tablet 4 mg 4 mg oral Q6H PRN Or ondansetron (ZOFRAN) injection 4 mg 4 mg intravenous Q6H PRN sodium chloride (OCEAN) 0.65 % nasal spray 1 spray 1 spray each nostril Q2H PRN sodium chloride 0.9% flush 5-20 mL 5-20 mL intra-catheter PRN My review of labs, imaging, notes and other tests is significant for Recent Labs Lab Units 04/18/23 0646 04/17/23 0510 04/16/23 0706 WBC K/cumm 26.9* 22.4* 23.0* HEMOGLOBIN g/dL 8.2* 8.2* 8.0* HEMATOCRIT % 26.1* 26.7* 25.7* PLATELETS K/cumm 572* 579* 614* . Recent Labs Lab Units 04/18/23 0718 04/18/23 0646 04/17/23 1931 04/17/23 0748 04/17/23 0510 04/16/23 0734 04/16/23 0706 SODIUM mmol/L -- 140 -- -- 136 -- 139 POTASSIUM PLASMA mmol/L -- 3.7 -- -- 3.9 -- 3.7 CHLORIDE mmol/L -- 109 -- -- 106 -- 106 CO2 mmol/L -- 24 -- -- 20* -- 23 CREATININE mg/dL -- 1.80* -- -- 2.10* -- 2.50* GLUCOSE mg/dL -- 137 -- -- 99 -- 139 POC GLUCOSE MONITOR mg/dL 137 -- 123 < > -- < > -- CALCIUM mg/dL -- 7.7* -- -- 7.8* -- 7.8* ALBUMIN g/dL -- 1.7* -- -- 1.3* -- 1.6* PHOSPHORUS PLASMA mg/dL -- 4.3 -- -- 4.2 -- -- < > = values in this interval not displayed. .No lab exists for component: COLORUA, CHARACTERUA, SPECGRAVUA, PHUA, PROTEINUA, BLOODUA, LEUKOCYTEUA, NITRITEUA, GLUCOSEUA, KETONEUA, BILIRUBINUA, UROBILINUA, WBCUA, RBCUA, EPITHUA, MUCUSUA, CASTUA,CRYSTALUA, BACTERIAUA, YEASTUA, TRICHUA US Arterial Doppler Lower Extremity Bilateral Amphion Job ID: [id number] Amphion Document ID: [id number] Dictated date/time: REASON FOR STUDY Gangrene right heel. Triphasic flow in the right common femoral, popliteal, dorsalis pedis and posterior vessels. NORMA is1/1, DP/PT. IMPRESSION Normal indices waveforms in the right lower extremity with no significant distal ischemia. Job ID/Internal Job ID: [id number] XR Chest 1 View EXAM DESCRIPTION: XR CHEST 1 VIEW REASON FOR STUDY: Shortness of breath Pt with sob, weakness x 2-3 days on day of admit (04/15/23) TECHNIQUE: Single frontal radiographic view(s) of the chest. COMPARISON: Chest radiograph dated 04/15/2023 and 12/13/2017 FINDINGS: Lung volumes are small with bronchovascular crowding. Continued diffuse bilateral opacities, multifocal pneumonia and/or pulmonary edema. No significant pleural effusion. No definite pneumothorax. Continued cardiomegaly. Osseous structures without acute interval change. IMPRESSION: Cardiomegaly with pulmonary edema as seen on the previous radiograph of 04/15/2023. THIS IS AN ELECTRONICALLY VERIFIED FINAL REPORT 04/17/2023 10:48 AM - Electronically signed by Jeremiah GARCIA T: Report ID: [id number] Reading Location: [id number] Assessment and Plan Active Problems: Acute diastolic congestive heart failure (CMS/HCC) (HCC) Type II diabetes mellitus with foot ulcer (HCC) Hypertension Acute respiratory failure with hypoxia (CMS/HCC) (HCC) Diarrhea Acute kidney failure (HCC) Elevated troponin Osteomyelitis (HCC) Wounds, multiple Resolved Problems: No resolved hospital problems. BOBBY on CKD in the setting of significant volume overload/pulmonary edema, unclear whether has obstructive uropathy as well, will check a postvoid residual. Does appear quite volume overloaded and will initiate IV furosemide. Obtaining a urinalysis with microscopy as well as a spot urine protein to c reatinine ratio as albumin is 1.8, likely has significant proteinuria. May need to order autoimmuneserology if active UA sediment. Echocardiogram is pending, previous echo with adequate EF and mild diastolic dysfunction. Obtaining a renal ultrasound as well. No acute need for dialysis and hopefully to respond to diuretics. Does have significant leukocytosis may have underlying infection, blood cultures pending, initiated on empiric antibiotics as well. 04/16/2023 Denies any urinary symptoms. Continue furosemide 80 mg IV b.i.d.. Has sub nephrotic proteinuria was1.8 g per g as per a spot sample. Continues to have significantly high leukocytosis. On antibiotics. Urine output noted, probably incomplete. Anemia. Will check iron profile, B12 and folate. Monitor urine output accurately. 2D echo is pending. 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 Noted vascular surgery recommendations regarding a rightabove-knee amputation which the patient declines. 04/17 Serum creatinine down to 2.1 today. Continue diuretics. Serum albumin 1.3. Multifactorial hypoalbuminemia. Non nephrotic range albuminuria previously unlikely primarily secondary to chronic inflammation. Reported diabetic retinopathy with potential need for intervention. Would hold off on prophylactic 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 for now in the setting of hypoalbuminemia. Plans are for PICC line with prolonged antibiotics for attempted limb salvage. Prognosis is extremely guarded. Started on folate and ironreplacement and will add vitamin-D replacement as well given deficiency. 04/18 Creatinine is improving. Down to 1.80. K 3.7, UOP 5000 ml yesterday. Improved creatinine with diuresis. BP 147/77 but variable and lower at times. 2 D Echo with normal EF but with diastolic dysfunction. Likely diabetic kidney disease in the setting of longstanding diabetes as well as diabetic retinopathy. Continue diuresis with furosemide at current dose of 80 mg IV b.i.d.. He is diuresing well. On antibiotics as per primary team/ID/vascular for the diabetic foot infection. She does not have a good appetite and this may be due to her ongoing infection. Likely not related to diminished renal function. Avoid hypotension and nephrotoxins. Thank you. Dallas Peña MD [facility]phrology [facility] Hypertension Office: [phone] * Darell Paniagua MD - 04/18/2023 6:10 AM CDT Progress Note Patient: Leeroy Canales ( - 1990) is a 32 y.o. female. Visit Date: 04/15/2023 Chief Complaint Patient presents with Shortness of Breath History of Present Illness: The patient is pleasant 32-year-old female who is bed-bound. 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 She is been taking care of by her mom and her sister. She does have history of diabetes. She does not smoke. She presented the emergency room complaining of progressive shortness of breath and cough for the past week or 2. Patient also was having trouble with a wound to her right foot and she is been having nausea. Her initial lab work showed creatinine 2 point 7, alk-phos 381 and albumin 1.8, ABGs showed pH 7.40, pCO2 36 and PO2 49 on room air, [place]BC [place] [address]. Urinalysis showed UTI. Chest x-ray showed Findings are suggestive of pulmonary edema. Her V/Q scan was negative, her D-dimer was elevated. Patient was started on oxygen 4 liter/minute. She does not use oxygenat home or inhaler. She was admitted to the hospital and consultation was requested for further evaluation and management. Upon evaluating the patient, her attitude was depressed or flat. She does report slight postnasal drainage. She does report PND and orthopnea. She denies any history of hemoptysis, epistaxis, hematemesis, melena, hematochezia, diarrhea but constipation. She denies any history syncope or seizure activity. She denies history of fever or chills. She denies any contact with sick people or exposure toTB. She is up-to-date with COVID-19 vaccine. She lives in [place], [place]. She does havea cat at home who does not sleep in her bed. Patient does not ambulate. She was started on cefepime, daptomycin for treatment of possible osteomyelitis. 04/16 -Patient was seen and examined. Lab data were reviewed. Chest x-ray was reviewed by me. medication list was reviewed and adjusted as necessary. Patient is hemodynamically stable. Patient is afebrile.No event overnight. Questions by the patient about the care, plan, medication and possible side effects/ complication of treatment/ medication/ procedures were discussed with patient/ caring agents/ family in details to their satisfaction and understanding. Patient case discussed with the nurse caring for the patient. Patient is doing fair. Patient is feeling okay. She slept okay overnight. Her fluid balance was-400 mL. No bowel movement was recorded. She is oxygenating adequately on 4 liter/minute of oxygen. 04/17 -Patient was seen and examined. Lab data were reviewed. Chest x-ray was reviewed by me. medication list was reviewed and adjusted as necessary. Patient is hemodynamically stable. Patient is afebrile.No event overnight. Questions by the patient about the care, plan, medication and possible side effects/ complication of treatment/ medication/ procedures were discussed with patient/ caring agents/ family in details to their satisfaction and understanding. Patient case discussed with the nurse caring for the patient. Patient is doing fair. Patient is feeling better. She is breathing easier. She slept okay overnight. Her oxygenation is adequate on 4 liter/[place] [address], albumin 1.3, fluid balance was-1 L. She did have bowel movement overnight. 04/18 -Patient was seen and examined. Lab data were reviewed. Chest x-ray was reviewed by me. medication list was reviewed and adjusted as necessary. Patient is hemodynamically stable. Patient is afebrile.No event overnight. Questions by the patient about the care, plan, medication and possible side effects/ complication of treatment/ medication/ procedures were discussed with patient/ caring agents/ family in details to their satisfaction and understanding. Patient case discussed with the nurse caring for the patient. Patient is doing fair. Patient is unchanged. She slept very good overnight. She is oxygenating adequately on 2-4 liter/minute of oxygen. Her fluid balance was - 3 L. She did have bowel movement overnight. [place]in [place] 1.3[place] [address]. Past Medical History: Past Medical History: Diagnosis Date CHF (congestive heart failure) (CMS/HCC) (HCC) CKD (chronic kidney disease) Diabetes mellitus (HCC) Hx of AKA (above knee amputation) (CMS/HCC) (HCC) Left Hypertension Surgical History: Past Surgical History: Procedure Laterality Date ABOVE KNEE LEG AMPUTATION Left Current Medications: Current Facility-Administered Medications Medication Dose Route Frequency Provider Last Rate Last Admin acetaminophen (TYLENOL) tablet 650 mg 650 mg oral Q4H PRN Amilcar Hancock MD sodium chloride 0.9% flush 0.5-20 mL 0.5-20 mL intra-catheter Q8H Amilcar Vee MD 10 mL at04/17/23 2129 And sodium chloride 0.9% flush 0.5-20 mL 0.5-20 mL intra-catheter PRN Amilcar Hancock MD And Carrier Fluids for Secondary Infusion - 0.9% Sodium Chloride 30 mL intravenous PRN Amilcar Hancock MD cefTRIAXone (ROCEPHIN) 2,000 mg/20 mL in sterile water (premix) 2,000 mg 2,000 mg intravenous Q24H Dante Fitzgerald MD 2,000 mg at 04/17/23 0917 DAPTOmycin (CUBICIN) 50 mg/mL sodium chloride 0.9% 700 mg 700 mg intravenous Q24H Amilcar Hancock MD 700 mg at 04/17/23 1558 dextrose (GLUTOSE) 40 % gel 15 g 15 g oral Q15 Min PRN Amilcar Hancock MD Or dextrose (D10W) 10% bolus 250 mL 250 mL intravenous Q15 Min PRN Amilcar Hancock MD ergocalciferol (VITAMIN D) capsule 50,000 Units 50,000 Units oral Weekly Golden Kidd MD 50,000 Units at 04/17/23 1437 ferric gluconate (FERRLECIT) 125 mg of elemental iron in sodium chloride 0.9% 100 mL IVPB 125 mg ofelemental iron intravenous Daily Hien Rabago MD 110 mL/hr at 04/17/23 1130 125 mg of elemental iron at 04/17/23 1130 folic acid (FOLVITE) tablet 1 mg 1 mg oral Daily Hien Rabago MD 1 mg at 04/17/23 0917 furosemide (LASIX) 10 mg/mL injection 80 mg 80 mg intravenous BID DIURETIC Amilcar Hancock MD 80 mg at 04/17/23 1719 glucagon injection 1 mg 1 mg intramuscular Q30 Min PRN Amilcar Hancock MD heparin 5,000 unit/mL injection 7,500 Units 7,500 Units subcutaneous Q8H ERICK Amilcar Hancock MD 7,500 Units at 04/17/232126 insulin glargine (LANTUS, SEMGLEE) 100 unit/mL injection 22 Units 0.15 Units/kg subcutaneous Nightly Amilcar Hancock MD 22 Units at 04/17/232127 insulin lispro (HumaLOG, ADMELOG) 100 unit/mL injection 0-4 Units 0-4 Units subcutaneous Nightly Amilcar Hancock MD insulin lispro (HumaLOG, ADMELOG) 100 unit/mL injection 0-5 Units 0-5 Units subcutaneous TID with meals Amilcar Hancock MD insulin lispro (HumaLOG, ADMELOG) 100 unit/mL injection 7 Units 0.05 Units/kg subcutaneous TID withmeals Amilcar Hancock MD 7 Units at 04/16/23 180 ipratropium-albuteroL (DUO-NEB) 0.5-2.5 mg/3 mL nebulizer solution 3 mL 3 mL nebulization Q4H PRN (RT) Darell Paniagua MD metroNIDAZOLE (FLAGYL) tablet 500 mg 500 mg oral TID Dante Stubbs MD 500 mg at 04/17/232127 ondansetron ODT (ZOFRAN-ODT) disintegrating tablet 4 mg 4 mg oral Q6H PRN Amilcar Hancock MD Or ondansetron (ZOFRAN) injection 4 mg 4 mg intravenous Q6H PRN Amilcar Hancock MD sodium chloride (OCEAN) 0.65 % nasal spray 1 spray 1 spray each nostril Q2H PRN Darell Paniagua MD sodium chloride 0.9% flush 5-10 mL 5-10 mL intra-catheter Q12H ERICK Hien Rabago MD 10 mL at04/17/23 2128 sodium chloride 0.9% flush 5-20 mL 5-20 mL intra-catheter PRN Hien Rabago MD thiamine (VITAMIN B-1) tablet 50 mg 50 mg oral Daily Hien Rabago MD 50 mg at 04/17/23 0917 Allergies: No Known Allergies Family History: History reviewed. No pertinent family history. Social History: Social History Tobacco Use Smoking status: Never Smokeless tobacco: Never Substance and Sexual Activity Drug use: Never Sexual activity: None Alcohol Use: Not on file Review of Systems: Review of Systems Constitutional: Positive for fatigue. Negative for appetite change, chills and fever. HENT: Negative for congestion, ear pain, mouth sores, tinnitus and voice change. Eyes: Negative for photophobia and pain. Respiratory: Positive for cough and shortness of breath. Negative for choking and stridor. Cardiovascular: Positive for leg swelling. Negative for chest pain and palpitations. Gastrointestinal: Negative for abdominal distention, abdominal pain and nausea. Endocrine: Negative for cold intolerance and polyphagia. Genitourinary: Negative for dysuria and hematuria. Musculoskeletal: Positive for gait problem. Negative for joint swelling. Skin: Negative for pallor and rash. Allergic/Immunologic: Negative for immunocompromised state. Neurological: Positive for weakness. Negative for seizures and facial asymmetry. Hematological: Negative for adenopathy. Does not bruise/bleed easily. Psychiatric/Behavioral: Negative for agitation and confusion. Physical Exam: Vitals: 04/17/23 1858 04/17/23 2115 04/17/23 2340 04/18/23 0353 BP: 144/80 149/81 130/75 BP Location: Left arm Left arm Left arm Patient Position: Pulse: 86 87 93 90 Resp: 18 18 18 Temp: 36.7 ??C (98 ??F) 36.9 ??C (98.5 ??F) 37.2 ??C (99 ??F) TempSrc: Oral Oral Oral SpO2: 92% (!) 89% 91% Weight: Height: Physical Exam Constitutional: General: She is not in acute distress. Appearance: She is well-developed. She is morbidly obese. She is ill-appearing. She is not diaphoretic. HENT: Head: Normocephalic and atraumatic. Neck: Thyroid: No thyromegaly. Cardiovascular: Rate and Rhythm: Normal rate and regular rhythm. Heart sounds: No murmur heard. No gallop. Pulmonary: Effort: Pulmonary effort is normal. No accessory muscle usage or respiratory distress. Breath sounds: No stridor. Examination of the right-upper field reveals decreased breath sounds. Examination of the left-upper field reveals decreased breath sounds. Examination of the right-lower field reveals rales. Examination of the left-lower field reveals rales. Decreased breath sounds and rales present. Chest: Chest wall: No tenderness. Abdominal: General: Bowel sounds are normal. There is no distension. Palpations: Abdomen is soft. Tenderness: There is no abdominal tenderness. Musculoskeletal: General: No tenderness or deformity. Normal range of motion. Cervical back: Normal range of motion and neck supple. Right lower leg: Edema present. Left lower leg: Edema present. Comments: Left BKA Lymphadenopathy: Cervical: No cervical adenopathy. Skin: General: Skin is warm and dry. Capillary Refill: Capillary refill takes less than 2 seconds. Findings: Lesion and rash present. No erythema. Neurological: Mental Status: She is alert and oriented to person, place, and time. Cranial Nerves: No cranial nerve deficit. Motor: Weakness present. Coordination: Coordination normal. Psychiatric: Mood and Affect: Mood is depressed. Behavior: Behavior normal. Data Reviewed Recent Results (from the past 24 hour(s)) POCT glucose Collection Time: 04/17/23 7:48 AM Result Value Ref Range Glucose, POC 101 70 - 199 mg/dL Glucose comment 1 Use This Result POCT glucose Collection Time: 04/17/23 10:35 AM Result Value Ref Range Glucose, POC 87 70 - 199 mg/dL Glucose comment 1 Use This Result Glucose comment 2 RN/MD Notified Lipid panel Collection Time: 04/17/23 1:03 PM Result Value Ref Range Cholesterol 97 30 - 199 mg/dL Triglycerides 61 <=149 mg/dL HDL 38 (L) >=40 mg/dL LDL, calculated 47 <=129 mg/dL Non-HDL Cholesterol 59 mg/dL Chol/HDL ratio 3 POCT glucose Collection Time: 04/17/23 3:39 PM Result Value Ref Range Glucose, POC 81 70 - 199 mg/dL Glucose comment 1 Use This Result Glucose comment 2 RN/MD Notified Albumin Creatinine Ratio, Urine Collection Time: 04/17/23 4:23 PM Result Value Ref Range Albumin Ur 467.4 mg/L Creatinine Ur 38.0 mg/dL Albumin Creatinine Ratio, Ur 1,230 (H) 1 - 29 mg/g Protein / creatinine ratio, urine, random Collection Time: 04/17/23 4:23 PM Result Value Ref Range Protein, ur, quant 137.0 mg/dL Creatinine Ur 38.0 mg/dL Protein/creatinine ratio 3,605.3 (H) 0.0 - 180.0 mg/g CR POCT glucose Collection Time: 04/17/23 7:31 PM Result Value Ref Range Glucose, POC 123 70 - 199 mg/dL Glucose comment 1 Use This Result Images: NM Pulmonary Perfusion Imaging Result Date: 04/15/2023 Narrative: EXAM DESCRIPTION: NM PULMONARY PERFUSION IMAGING RADIOPHARMACEUTICAL: 4 mCi Tc-99m MAA via a right antecubital vein IV site REASON FOR STUDY: Chest pain. Shortness of breath and cough. TECHNIQUE: Limited multi-planar perfusion scintigrams were obtained. COMPARISON: Chest radiograph 04/15/2023 FINDINGS: Perfusion images obtained in the anterior, anterior oblique, and lateral projectionswere obtained. The posterior and posterior oblique projections were not obtained. There is mild enlargement of the cardiomediastinal silhouette. There are no large segmental perfusion defects on the provided images. IMPRESSION: 1. Limited perfusion lung scan with a low probability for pulmonary embolism. THIS IS AN ELECTRONICALLY VERIFIED FINAL REPORT 04/15/2023 4:31 PM - Electronically signed by Amor Rodriguez M.D. LB T: Report ID: [id number] Reading Location: [id number] XR Foot Right 3 or More Views Result Date: 04/15/2023 Narrative: EXAM DESCRIPTION: XR FOOT RIGHT 3 OR MORE VIEWS REASON FOR STUDY: Wound infection TECHNIQUE: 3 radiographic view(s) of the right foot . COMPARISON: 02/20/2023 FINDINGS: Plantar soft tissueulceration of the hindfoot with underlying soft tissue gas. There is diffuse soft tissue swelling of the foot, particularly involving the dorsal aspect of the mid to forefoot. No radiopaque foreign bodies. There is suspected mild osseous cortical erosion involving the plantar aspect of the calcaneus when compared to the prior exam. No acute fracture or dislocation. IMPRESSION: Prominent soft tissue ulceration of the plantar aspect of the hindfoot with underlying soft tissue gas. Suspected osseous cortical erosion involving the plantar aspect of the calcaneus, concerning for acute osteomyelitis. THIS IS AN ELECTRONICALLY VERIFIED FINAL REPORT 04/15/2023 2:51 PM - Electronically signed by Rio PHILLIPS T: Report ID: [id number] Reading Location: [id number] XR Chest 1 Vw Portable Result Date: 04/15/2023 Narrative: EXAM DESCRIPTION: XR CHEST 1 VIEW REASON FOR STUDY: Shortness of breath Pt with sob, weakness x 2-3 days Hx lg necrotic wnd on rt foot that she is being treated for Pt is lt leg amputee above the knee TECHNIQUE: 1 radiographic view(s) of the chest. COMPARISON: None FINDINGS: LUNGS: Diffuse bilateral interstitial opacities. No focal consolidation. No pneumothorax. No large pleural effusion. HEART/MEDIASTINUM: Cardiac silhouette is enlarged.. Mediastinal and hilar contours appear normal. LINES/TUBES: None. BONES: No acute osseous abnormality. IMPRESSION: Findings are suggestive of pulmonary edema. THIS IS AN ELECTRONICALLY VERIFIED FINAL REPORT 04/15/2023 2:43 PM - Electronically signed by Rio PHILLIPS T: Report ID: [id number] Reading Location: [id number] Assessment and Plan: Assessment Acute hypoxemic respiratory failure secondary to fluid overload/pulmonary edema and possible sepsis. No history of smoking. Bed bound. Right BKA. Renal insufficiency. Plan Oxygen keep ox saturation more than 92%. Bronchodilators around the clock and as needed with albuterol and Atrovent. Head of bed elevation and aspiration precaution. Diuresis, monitor O2 retires and fluid balance, monitor kidney function. Incentive spirometry and physical therapy. Out of bed to the chair if possible. Pulmonary toilet and pep valve. Check blood culture, sputum culture, ESR, CRP, BNP, procalcitonin and MRSA. Saline nasal spray twice daily. Patient would need outpatient split sleep study. Condition is guarded. Will monitor patient closely. Continue antibiotics, daptomycin and cefepime. Check 2D echocardiogram. 04/16 -continue daptomycin, cefepime, day 2., patient would need 2D echocardiogram to evaluate her cardiomegaly and fluid overload on chest x-ray. Continue monitoring electrolytes, kidney function, input and output. Continue bronchodilators, oxygen supplement keep ox saturation more than 92%, head of bedelevation, aspiration precaution, pep valve, pulmonary toilet, DVT and stress ulcer prophylaxis, continue wound care and continue monitor patient closely. Patient condition is guarded. 04/17 -daptomycin, cefepime(was switched to ceftriaxone and Flagyl), day 3., 2D echocardiogram was reviewed. Continue nutritional support, head of bed elevation, aspiration precaution, pulmonary toilet, DVT and stress ulcer prophylaxis, pep valve, bronchodilators, oxygen supplement keep ox saturation more than 92%, wean oxygen as tolerated, continue wound care, continue diuresis, monitor electrolytes and fluid balance, patient condition continued to be guarded. 04/18 -antibiotics, ceftriaxone, Flagyl and daptomycin, day number 4 continue weaning oxygen keep ox saturation more than 92%, head of bed elevation, aspiration precaution, bronchodilators, incentive spirometry, physical therapy, pep valve, DVT and stress ulcer prophylaxis, pulmonary toilet, continue wound care, diuresis, monitor electrolytes and fluid balance, continue monitor patient closely. She would need outpatient split sleep study. Rendering Provider & Department: Darell Paniagua MD THIS NOTE WAS CREATED IN PART WITH THE ASSISTANCE OF [employer]. ASSISTANT PRODUCER VARIANCES MAY OCCUR. For patients or family members viewing this note through [employer]: This note was written as a communication tool between healthcare providers and may contain technical language, terminology and abbreviations that is difficult to interpret without advanced medical training. If you have questions or concerns regarding what is written in this note, please request to speak with the healthcare provider taking care of you or your family member. * Kerrie Rocha MSW - 04/17/2023 3:51 PM CDT RF TEST TECHNICIAN received consult. Order acknowledged. RF TEST TECHNICIAN attempted to see pt. Pt asleep. RF TEST TECHNICIAN informed by ofanticipated bed bug exterminator IV abx. Referrals to be sent to [facility] infusion and ltacs via [facility]. SS to follow up. VERONIKA Thurman 04/17/2023 3:56 PM * Hien Rabago MD - 04/17/2023 1:56 PM CDT General Medicine Daily Progress DOA: 04/15/2023 Subjective Chief complaint of . Dyspnea Interval History: Respiratory distress had improved On 4 L supplemental oxygen, to be down titrated today Bilateral crackles have significantly improved Past Medical History: Diagnosis Date CHF (congestive heart failure) (CMS/HCC) (HCC) CKD (chronic kidney disease) Diabetes mellitus (HCC) Hx of AKA (above knee amputation) (CMS/HCC) (HCC) Left Hypertension Objective Vitals: 24hr Min/Max: Temp Min: 36.4 ??C (97.6 ??F) Max: 36.9 ??C (98.5 ??F) Pulse Min: 79 Max: 88 BP Min: 112/67 Max: 135/79 Resp Min: 18 Max: 20 SpO2 Min: 93 % Max: 97 % Most Recent : Vitals: 04/17/23 1100 BP: 135/79 Pulse: 80 Resp: Temp: 36.7 ??C (98.1 ??F) SpO2: 97% I/O last 2 completed shifts: In: - Out: 1000 [Urine:1000] No intake/output data recorded. Physical Exam: Physical Exam Constitutional: Appearance: She is well-developed. She is obese. She is ill-appearing. She is not diaphoretic. HENT: Head: Normocephalic. Mouth/Throat: Mouth: Mucous membranes are moist. Eyes: Pupils: Pupils are equal, round, and reactive to light. Neck: Thyroid: No thyromegaly. Vascular: No JVD. Cardiovascular: Rate and Rhythm: Normal rate and regular rhythm. Pulmonary: Effort: Pulmonary effort is normal. No tachypnea. Breath sounds: Decreased breath sounds and rales present. No wheezing or rhonchi. Abdominal: General: Bowel sounds are normal. Palpations: Abdomen is soft. There is no hepatomegaly. Musculoskeletal: General: Normal range of motion. Cervical back: Normal range of motion and neck supple. Right lower leg: Edema present. Left lower leg: No edema. Comments: Left AKA Skin: General: Skin is warm. Capillary Refill: Capillary refill takes 2 to 3 seconds. Findings: Erythema present. Comments: Right foot ulcer with erythema Neurological: General: No focal deficit present. Mental Status: She is alert and oriented to person, place, and time. Psychiatric: Mood and Affect: Mood normal. Lab/Radiology/Diagnostic Review: Laboratory review: Chemistry BMP Lab Results Component Value Date GLUCOSE 87 04/17/2023 GLUCOSE 99 04/17/2023 CALCIUM 7.8 (L) 04/17/2023 SODIUM 136 04/17/2023 POTASSIUM 3.9 04/17/2023 CO2 20 (L) 04/17/2023 BUNSER 35 (H) 04/17/2023 CREATININE 2.10 (H) 04/17/2023 and CBC: Lab Results Component Value Date WBC 22.4 (H) 04/17/2023 RBC 3.13 (L) 04/17/2023 HGB 8.2 (L) 04/17/2023 HCT 26.7 (L) 04/17/2023 MCV 85.3 04/17/2023 MCH 26.2 (L) 04/17/2023 MCHC 30.7 (L) 04/17/2023 RDWCV 17.3 (H) 04/17/2023 RDWSD 53.8 (H) 04/17/2023 MPV 9.2 04/17/2023 NRBCABS 0.21 (H) 04/17/2023 Current Facility-Administered Medications Medication Dose Route Frequency Provider Last Rate Last Admin acetaminophen (TYLENOL) tablet 650 mg 650 mg oral Q4H PRN Amilcar Hancock MD sodium chloride 0.9% flush 0.5-20 mL 0.5-20 mL intra-catheter Q8H [facility] Amilcar Hancock MD 10 mL at04/16/23 1414 And sodium chloride 0.9% flush 0.5-20 mL 0.5-20 mL intra-catheter PRN Amilcar Hancock MD And Carrier Fluids for Secondary Infusion - 0.9% Sodium Chloride 30 mL intravenous PRN Amilcar Hancock MD cefTRIAXone (ROCEPHIN) 2,000 mg/20 mL in sterile water (premix) 2,000 mg 2,000 mg intravenous Q24H Dante Fitzgerald MD 2,000 mg at 04/17/23 0917 DAPTOmycin (CUBICIN) 50 mg/mL sodium chloride 0.9% 700 mg 700 mg intravenous Q24H Amilcar Hancock MD 700 mg at 04/16/23 1416 dextrose (GLUTOSE) 40 % gel 15 g 15 g oral Q15 Min PRN Amilcar Hancock MD Or dextrose (D10W) 10% bolus 250 mL 250 mL intravenous Q15 Min PRAmilcar Vaughan MD ergocalciferol (VITAMIN D) capsule 50,000 Units 50,000 Units oral Weekly Golden Kidd MD ferric gluconate (FERRLECIT) 125 mg of elemental iron in sodium chloride 0.9% 100 mL IVPB 125 mg ofelemental iron intravenous Daily Hien Rabago MD 110 mL/hr at 04/16/232111 125 mg of elemental iron at 04/16/232111 folic acid (FOLVITE) tablet 1 mg 1 mg oral Daily Hien Rabago MD 1 mg at 04/17/23916 furosemide (LASIX) 10 mg/mL injection 80 mg 80 mg intravenous BID DIURETIC Amilcar Hancock MD 80 mg at 04/17/23916 glucagon injection 1 mg 1 mg intramuscular Q30 Min PRN Amilcar Hancock MD heparin 5,000 unit/mL injection 7,500 Units 7,500 Units subcutaneous Q8H [facility] Amilcar Hancock MD 7,500 Units at 04/17/23 06 insulin glargine (LANTUS, SEMGLEE) 100 unit/mL injection 22 Units 0.15 Units/kg subcutaneous Nightly Amilcar Hancock MD 22 Units at 04/16/232111 insulin lispro (HumaLOG, ADMELOG) 100 unit/mL injection 0-4 Units 0-4 Units subcutaneous Nightly Amilcar Hancock MD insulin lispro (HumaLOG, ADMELOG) 100 unit/mL injection 0-5 Units 0-5 Units subcutaneous TID with meals Amilcar Hancock MD insulin lispro (HumaLOG, ADMELOG) 100 unit/mL injection 7 Units 0.05 Units/kg subcutaneous TID withmeals Amilcar Hancock MD 7 Units at 04/16/23 1801 ipratropium-albuteroL (DUO-NEB) 0.5-2.5 mg/3 mL nebulizer solution 3 mL 3 mL nebulization Q4H PRN (RT) Darell Paniagua MD metroNIDAZOLE (FLAGYL) tablet 500 mg 500 mg oral TID Dante Stubbs MD 500 mg at 04/17/23 09 ondansetron ODT (ZOFRAN-ODT) disintegrating tablet 4 mg 4 mg oral Q6H PRN Amilcar Hancock MD Or ondansetron (ZOFRAN) injection 4 mg 4 mg intravenous Q6H PRN Amilcar Hancock MD sodium chloride (OCEAN) 0.65 % nasal spray 1 spray 1 spray each nostril Q2H PRN Darell Paniagua MD sodium chloride 0.9% flush 5-10 mL 5-10 mL intra-catheter Q12H [facility] Hien Rabago MD sodium chloride 0.9% flush 5-20 mL 5-20 mL intra-catheter PRN Hien Rabago MD thiamine (VITAMIN B-1) tablet 50 mg 50 mg oral Daily Hien Rabago MD 50 mg at 04/17/23 0917 Assessment/Plan Active Problems: Acute diastolic congestive heart failure (CMS/HCC) ([facility]) Type II diabetes mellitus with foot ulcer (HCC) Hypertension Acute respiratory failure with hypoxia (CMS/HCC) (HCC) Diarrhea Acute kidney failure (HCC) Elevated troponin Osteomyelitis (HCC) Wounds, multiple Plan # acute hypoxemic respiratory failure 2/2 CHF exacerbation with acute heart failure -on 4 L supplemental oxygen -patient is morbidly obese, likely OHS component -echocardiogram to rule out heart failure exacerbation -on Lasix 80 mg IV b.i.d. 04/17 Respiratory distress had improved On 4 L supplemental oxygen, to be down titrated today Bilateral crackles have significantly improved Echocardiogram shows normal systolic function, noted LV diastolic function with mild to moderate pericardial effusion, mild TR and elevated right heart pressures On Lasix Follow cardiology consult recommendation # COPD -continue bronchodilator -on 4 L supplemental oxygen # iron-deficiency anemia and folate deficiency -started on iron sucrose IV and then oral -started on thiamine and folic acid # acute osteomyelitis of the right foot calcaneum # abdominal wall infection panniculitis -on ceftriaxone, metronidazole and daptomycin day 1 -patient refused right BKA per vascular surgery scheduler -PICC line order today for long time antibiotic regimen -follow ID consult recommendations # diabetes mellitus -continue insulin regimen # CKD 3A secondary to possible nephrotic syndrome Stable -follow renal consult recommendation # PVD -follow vascular surgery recommendation DVT prophylaxis: Heparin GI prophylaxis: Ppi Rehab consult: Ongoing CODE status: Full Code Discharge disposition: Home * Sultan Sofía Muro MD - 04/17/2023 1:08 PM CDT +Patient ID: Leeroy Canales is a 32 y.o. female. Chief Complaint Patient presents with Shortness of Breath HPI: 04/15/2023.Patient is a 32 y.o. female with chief complaint of increasing dyspnea for the lastfew days. She is been dyspneic on lying down as well as on minimal activity. Cough on lying down. No chest pain. No nausea or vomiting. No fever or chills. No diarrhea. No palpitation, presyncope or syncope. No wheezing. She is morbidly obese. Has history of hypertension and insulin- dependent diabetes mellitus. She was told a few weeks ago that she might have congestive heart failure. Is no history of myocardial infarction. No coronary artery bypass surgery or coronary artery stenting. She underwent about the knee amputation of the left leg at [facility] a few months ago for osteomyelitis. On this ad mission, the chest x-ray shows gross cardiomegaly, fluid overload. She has stage IV close to stage 5 kidney disease. Severe hypoxia. No history of heavy drinking, smoking or drug abuse. 04/16/2023. No acute distress. No chest pain dyspnea orthopnea or PND. No cough. Monitor normal sinus rhythm. Workup in progress. Echo Doppler awaited. 04/17/2023. No acute distress. Chest pain or dyspnea. Monitor normal sinus. X- ray chest continues to show cardiomegaly and pulmonary congestion . Low serum albumin. Will check random urine protein creatinine ratio to look for nephrotic syndrome. Will check the lipid profile if not already done. Echo showed normal ejection fraction. No significant valvular abnormality. Small pericardial effusion. Current Medications: acetaminophen sodium chloride 0.9% And sodium chloride 0.9% And sodium chloride 0.9% cefTRIAXone DAPTOmycin dextrose Or dextrose ergocalciferol ferric gluconate folic acid furosemide glucagon heparin insulin glargine insulin lispro insulin lispro insulin lispro ipratropium-albuteroL metroNIDAZOLE ondansetron ODT Or ondansetron sodium chloride sodium chloride 0.9% sodium chloride 0.9% thiamine Review of Systems: Constitutional. No fever or chills. Morbid obesity. Central nervous system. No headaches. No seizures. Respiratory system.. Initially cough on lying down. No cough today. Cardiovascular system.. Initially dyspnea on mild activity and orthopnea. No palpitation, presyncope or syncope.. Hypertension. Congestive heart failure. GI tract.. No nausea, vomiting, abdominal pain. No diarrhea. Endocrine system. Insulin-dependent diabetes mellitus. Hematology/oncology. No anemia. No malignancy.. Psychiatric system. No anxiety or depression. tract. Renal insufficiency. Physical Exam: BP 135/79 Pulse 80 Temp 36.7 ??C (98.1 ??F) Resp 18 Ht 170.2 cm (5' 7 ) Wt (!) 144.2 kg (318 lb) SpO2 97% BMI 49.81 kg/m?? General. No acute distress. Centtral nervous system.. No focal deficits. The respiratory system. Lungs clear to auscultation and percussion. No rales or rhonchi.. Cardiovascular system. Heart regular. Normal S1 and S2. No murmur, gallop or click.. Abdomen. Soft nontender. Bowel sounds normal.. Skin. Warm and dry with good turgor.. Neck. No jugular venous distention.. Extremities. Left AKA. Lab Results Component Value Date SODIUM 136 04/17/2023 POTASSIUM 3.9 04/17/2023 CO2 20 (L) 04/17/2023 BUNSER 35 (H) 04/17/2023 GLUCOSE 87 04/17/2023 CREATININE 2.10 (H) 04/17/2023 CALCIUM 7.8 (L) 04/17/2023 CHLORIDE 106 04/17/2023 ALBUMIN 1.3 (L) 04/17/2023 ALT 32 04/17/2023 AST 29 04/17/2023 ALKPHOS 334 (H) 04/17/2023 BILITOT 0.3 04/17/2023 PROT 5.5 (L) 04/17/2023 WBC 22.4 (H) 04/17/2023 HGB 8.2 (L) 04/17/2023 TSH 4.01 04/16/2023 NPROBNP 11,534 (H) 04/16/2023 Assessment & Plan:1. Acute diastolic congestive heart failure. Mostly related to the renal insufficiency and possible nephrotic syndrome. Echo showed normal ejection fraction. 60-65%. Elevated right atrial pressure. No significant valvular abnormality. Lasix for decongestion . Nephrology consulting. 24 hour input?. Output 1000. Net balance? . 2. Renal insufficiency. Sodium 136, potassium 3.9. BUN 35, creatinine 2.10. GFR 32 . Stage III B close to stage IV kidney disease. Nephrology consulting. Random urine protein creatinine ratio to lookfor nephrotic syndrome. 3. Primary hypertension. Blood pressure 135/79. Salt restriction. Lasix. 4. Insulin-dependent diabetes mellitus. 5. Morbid obesity. 6. Status post left AKA. 7. Elevated troponin T... Troponin T 97, 87, 94, 89. Most probably related to the renal insufficiency and congestive heart failure. 8. Leukocytosis. White cell count was 22.4. Blood cultures negative. Question of osteomyelitis right calcaneum. Rocephin. Maxipime. Cubicin. Flagyl. Vancomycin. Sultan Sofía Muro MD * Golden Kidd MD - 04/17/2023 10:37 AM CDT Renal Progress Note Admit Date: 04/15/2023 Days: 2 Reason for Follow up: Acute on chronic kidney failure Clinical Course/New Symptoms Lying in bed in no distress Data Vitals: 04/17/23 0709 BP: Pulse: 81 Resp: Temp: SpO2: Exam Constitutional: alert and oriented. Appears well-developed and well-nourished, in no distress. HighBMI Head: Normocephalic. Eyes: No icterus, extraocular movements normal Neck: Neck supple. Cardiovascular: Normal rate and regular rhythm. No murmur heard. Pulmonary/Chest: Diminished breath sounds bilaterally, on oxygen via nasal cannula. Abdominal: Soft. Musculoskeletal: Right lower extremity edema. Neurological: alert and moves all 4 limbs. Skin: No rashes Intake/Output Summary (Last 24 hours) at 04/17/2023 1040 Last data filed at 04/16/2023 2145 Gross per 24 hour Intake -- Output 1000 ml Net -1000 ml MEDICATIONS FOR CURRENT ENCOUNTER: SCHEDULED MEDICATIONS: Scheduled Medications Medication Dose Route Frequency cefTRIAXone (ROCEPHIN) 2,000 mg/20 mL in sterile water (premix) 2,000 mg 2,000 mg intravenous Q24H ERICK DAPTOmycin (CUBICIN) 50 mg/mL sodium chloride 0.9% 700 mg 700 mg intravenous Q24H ergocalciferol (VITAMIN D) capsule 50,000 Units 50,000 Units oral Weekly ferric gluconate (FERRLECIT) 125 mg of elemental iron in sodium chloride 0.9% 100 mL IVPB 125 mg ofelemental iron intravenous Daily folic acid (FOLVITE) tablet 1 mg 1 mg oral Daily furosemide (LASIX) 10 mg/mL injection 80 mg 80 mg intravenous BID DIURETIC heparin 5,000 unit/mL injection 7,500 Units 7,500 Units subcutaneous Q8H [facility] insulin glargine (LANTUS, SEMGLEE) 100 unit/mL injection 22 Units 0.15 Units/kg subcutaneous Nightly insulin lispro (HumaLOG, ADMELOG) 100 unit/mL injection 0-4 Units 0-4 Units subcutaneous Nightly insulin lispro (HumaLOG, ADMELOG) 100 unit/mL injection 0-5 Units 0-5 Units subcutaneous TID with meals insulin lispro (HumaLOG, ADMELOG) 100 unit/mL injection 7 Units 0.05 Units/kg subcutaneous TID withmeals metroNIDAZOLE (FLAGYL) tablet 500 mg 500 mg oral TID sodium chloride 0.9% flush 0.5-20 mL 0.5-20 mL intra-catheter Q8H [facility] thiamine (VITAMIN B-1) tablet 50 mg 50 mg oral Daily CONTINUOUS MEDICATIONS: Current Facility-Administered Medications Medication Dose Route Frequency Last Admin PRN MEDICATIONS: PRN Medications Medication Dose Route Frequency Last Admin acetaminophen (TYLENOL) tablet 650 mg 650 mg oral Q4H PRN sodium chloride 0.9% flush 0.5-20 mL 0.5-20 mL intra-catheter PRN And Carrier Fluids for Secondary Infusion - 0.9% Sodium Chloride 30 mL intravenous PRN dextrose (GLUTOSE) 40 % gel 15 g 15 g oral Q15 Min PRN Or dextrose (D10W) 10% bolus 250 mL 250 mL intravenous Q15 Min PRN glucagon injection 1 mg 1 mg intramuscular Q30 Min PRN ipratropium-albuteroL (DUO-NEB) 0.5-2.5 mg/3 mL nebulizer solution 3 mL 3 mL nebulization Q4H PRN (RT) ondansetron ODT (ZOFRAN-ODT) disintegrating tablet 4 mg 4 mg oral Q6H PRN Or ondansetron (ZOFRAN) injection 4 mg 4 mg intravenous Q6H PRN sodium chloride (OCEAN) 0.65 % nasal spray 1 spray 1 spray each nostril Q2H PRN My review of labs, imaging, notes and other tests is significant for Recent Labs Lab Units 04/17/23 0510 04/16/23 0706 04/15/23 1341 WBC K/cumm 22.4* 23.0* 32.1* HEMOGLOBIN g/dL 8.2* 8.0* 8.7* HEMATOCRIT % 26.7* 25.7* 27.6* PLATELETS K/cumm 579* 614* 669* . Recent Labs Lab Units 04/17/23 1035 04/17/23 0748 04/17/23 0510 04/16/23 0734 04/16/23 0706 04/15/23 1956 04/15/23 1543 04/15/23 1341 SODIUM mmol/L -- -- 136 -- 139 -- 136 136 POTASSIUM PLASMA mmol/L -- -- 3.9 -- 3.7 -- 4.3 4.0 CHLORIDE mmol/L -- -- 106 -- 106 -- 107 103 CO2 mmol/L -- -- 20* -- 23 -- 18* 24 CREATININE mg/dL -- -- 2.10* -- 2.50* -- 2.70* 2.70* GLUCOSE mg/dL -- -- 99 -- 139 -- 193 192 POC GLUCOSE MONITOR mg/dL 87 101 -- < > -- < > -- -- CALCIUM mg/dL -- -- 7.8* -- 7.8* -- 7.9* 8.1* ALBUMIN g/dL -- -- 1.3* -- 1.6* -- -- 1.8* PHOSPHORUS PLASMA mg/dL -- -- 4.2 -- -- -- -- -- < > = values in this interval not displayed. .No lab exists for component: COLORUA, CHARACTERUA, SPECGRAVUA, PHUA, PROTEINUA, BLOODUA, LEUKOCYTEUA, NITRITEUA, GLUCOSEUA, KETONEUA, BILIRUBINUA, UROBILINUA, WBCUA, RBCUA, EPITHUA, MUCUSUA, CASTUA,CRYSTALUA, BACTERIAUA, YEASTUA, TRICHUA US Kidney Complete EXAM DESCRIPTION: US KIDNEY COMPLETE REASON FOR STUDY: CKD for 12 years. TECHNIQUE: Ultrasound of the kidneys and urinary bladder was performed with grayscale imaging. COMPARISON: 05/08/2011 FINDINGS: RIGHT KIDNEY: The right kidney measures 12.6 cm in length. There is no hydronephrosis. There is normal cortical thickness and echogenicity. LEFT KIDNEY: The left kidney measures 12.3 cm in length. There is no hydronephrosis. There is normal cortical thickness and echogenicity. URINARY BLADDER: Urinary bladder is decompressed with a balloon tip Fortune catheter. OTHER: No other additional findings. IMPRESSION: Normal renal ultrasound. THIS IS AN ELECTRONICALLY VERIFIED FINAL REPORT 04/16/2023 1:53 PM - Electronically signed by Jed CROWE T: Report ID: [id number] Reading Location: [place] [id number] Transthoracic Echo (TTE) Complete W Doppler/CF Adult Echocardiogram + + :Name: LEEROY CANALES Study Date: 04/16/2023 Status: [facility] : : Patient Location: [facility] 2 NE^[id number]^MHBHeight: 67 in : : Weight: 318 lbBP: 153/85 mmHg: :: 1990 Gender: Female BSA: 2.5 m2 : :Reason For Study: acute decompensated heart failure : :Ordering Physician: : :AMILCAR HANCOCK : : : :Performed By: Tamar : :JOLENE Tinajero : + + Procedure A two-dimensional transthoracic echocardiogram with color flow and Doppler was performed. A contrast injection of Definity was performed to improve assessment of LV function. Definity lot # is ' [id number] '. The study was technically difficult due to patient's 'body habitus'. Left Ventricle The left ventricle is normal in size. There is normal left ventricular wall thickness. Left ventricular systolic function is normal. Ejection Fraction = 60-65%. The left ventricular wall motion is normal. There is no obvious thrombus noted. Right Ventricle The right ventricle is normal size. The right ventricular systolic function is normal. Atria The left atrium is mildly dilated. The right atrium is mildly dilated. The interatrial septum is intact with no evidence for an atrial septal defect. Mitral Valve The mitral valve is normal. There is no mitral regurgitation noted. Tricuspid Valve The tricuspid valve is normal. There is mild tricuspid regurgitation. Right ventricular systolic pressure is normal. Aortic Valve Aortic valve structure is normal. No aortic stenosis . No aortic regurgitation is present. Pulmonic Valve The pulmonic valve is not well visualized. Great Vessels The aortic root is normal size. IVC appears 'dilated' in size. IVC has blunted respirophasic collapse. Estimated right atrial pressure is ' 10-15' mmHg. Elevated right heart pressures. Pericardium Mild to moderate pericardial effusion. There are no echocardiographic indications of cardiac tamponade. There is no pleural effusion. Diastology Mitral inflow pattern is normal. E/E prime ratio is >15 suggesting a high pulmonary wedge pressure and LV diastolic dysfunction. Interpretation Summary Left ventricular systolic function is normal. Ejection Fraction = 60-65%. The left atrium is mildly dilated. The right atrium is mildly dilated. There is mild tricuspid regurgitation. Right ventricular systolic pressure is normal. Estimated right atrial pressure is ' 10-15' mmHg. Elevated right heart pressures. Mild to moderate pericardial effusion. There are no echocardiographic indications of cardiac tamponade. Mitral inflow pattern is normal. E/E prime ratio is >15 suggesting a high pulmonary wedge pressure and LV diastolic dysfunction. + + :Measurements with Normals : : (0.6-1.2 LVIDd: (3.5-5.7 Ao root diam: (2.0-3.7 : :IVSd: 1.2 cmcm) 4.9 cm cm) 2.6 cm cm) : :LVPWd: (0.6-1.1 LVIDs: (3.1-4.6 LA dimension: (1.9-4.0 : :1.2 cm cm) 3.2 cm cm) 3.8 cm cm) : + + MMode/2D Measurements & Calculations RVDd: 2.9 cm FS: 34.6 % Ao root area: 5.3 cm2 LVOT diam: 2.0 cm EDV(Teich): 110.2 ml LVOT area: 3.1 cm2 ESV(Teich): 40.0 ml Doppler Measurements & Calculations MV E max mariajose: Ao V2 max: LV V1 max PG: TV V2 max: 124.0 cm/sec 155.0 cm/sec 6.7 mmHg 73.8 cm/sec MV A max mariajose: Ao max P.6 mmHg LV V1 max: TV max P.2 mmHg 50.1 cm/sec FARIBA(V,D): 2.6 cm2 129.0 cm/sec MV E/A: 2.5 PA V2 max: PI end-d mariajose: RV V1 max: TR max mariajose: 109.0 cm/sec 109.0 cm/sec 78.2 cm/sec 173.0 cm/sec PA max P.8 mmHg TR max P.0 mmHg RVSP(TR): 20.0 mmHg RAP systole: 8.0 mmHg Electronically signed by: Sultan Jina MD 04/16/2023 12:49 PM Assessment and Plan Active Problems: Acute diastolic congestive heart failure (CMS/HCC) ([facility]) Type II diabetes mellitus with foot ulcer ([facility]) Hypertension Acute respiratory failure with hypoxia (CMS/HCC) ([facility]) Diarrhea Acute kidney failure ([facility]) Elevated troponin Osteomyelitis (HCC) Wounds, multiple Resolved Problems: No resolved hospital problems. BOBBY on CKD in the setting of significant volume overload/pulmonary edema, unclear whether has obstructive uropathy as well, will check a postvoid residual. Does appear quite volume overloaded and will initiate IV furosemide. Obtaining a urinalysis with microscopy as well as a spot urine protein to c reatinine ratio as albumin is 1.8, likely has significant proteinuria. May need to order autoimmuneserology if active UA sediment. Echocardiogram is pending, previous echo with adequate EF and mild diastolic dysfunction. Obtaining a renal ultrasound as well. No acute need for dialysis and hopefully to respond to diuretics. Does have significant leukocytosis may have underlying infection, blood cultures pending, initiated on empiric antibiotics as well. 04/16/2023 Denies any urinary symptoms. Continue furosemide 80 mg IV b.i.d.. Has sub nephrotic proteinuria was1.8 g per g as per a spot sample. Continues to have significantly high leukocytosis. On antibiotics. Urine output noted, probably incomplete. Anemia. Will check iron profile, B12 and folate. Monitor urine output accurately. 2D echo is pending. 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 Noted vascular surgery recommendations regarding a rightabove-knee amputation which the patient declines. 04/17 Serum creatinine down to 2.1 today. Continue diuretics. Serum albumin 1.3. Multifactorial hypoalbuminemia. Non nephrotic range albuminuria previously unlikely primarily secondary to chronic inflammation. Reported diabetic retinopathy with potential need for intervention. Would hold off on prophylactic 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 for now in the setting of hypoalbuminemia. Plans are for PICC line with prolonged antibiotics for attempted limb salvage. Prognosis is extremely guarded. Started on folate and ironreplacement and will add vitamin-D replacement as well given deficiency. Thank you. Golden Kidd MD [facility] Office: [phone] * Dante Stubbs MD - 04/17/2023 9:19 AM CDT Progress Note Infectious Diseases Chief complaint: Right diabetic foot infection with osteomyelitis of calcaneal bone Subjective Minimal pain to the right foot area. No fevers. Objective Vitals: 04/17/23 0700 BP: 132/82 Pulse: 82 Resp: 18 Temp: 36.7 ??C (98.1 ??F) SpO2: 97% Constitutional: Alert, oriented x3. In no distress. Eyes: Sclerae anicteric, no conjunctival erythema Lungs: Clear breath sounds, no crackles, no wheezes Heart: Regular rate and rhythm, no murmurs Abdomen: Bowel sounds present, soft, nontender Skin: Warm and dry, No rashes Extremities: Trace edema of the right foot. Left AKA stump site wound is clean. Neuro: No motor deficit Psych: No anxiety Current Medications: Current Facility-Administered Medications Medication Dose Route Frequency Provider Last Rate Last Admin acetaminophen (TYLENOL) tablet 650 mg 650 mg oral Q4H PRN Amilcar Hancock MD sodium chloride 0.9% flush 0.5-20 mL 0.5-20 mL intra-catheter Q8H [facility] Amilcar Hancock MD 10 mL at04/16/23 1414 And sodium chloride 0.9% flush 0.5-20 mL 0.5-20 mL intra-catheter PRN Amilcar Hancock MD And Carrier Fluids for Secondary Infusion - 0.9% Sodium Chloride 30 mL intravenous PRN Amilcar Hancock MD cefTRIAXone (ROCEPHIN) 2,000 mg/20 mL in sterile water (premix) 2,000 mg 2,000 mg intravenous Q24H Dante Fitzgerald MD 2,000 mg at 04/17/23 0917 DAPTOmycin (CUBICIN) 50 mg/mL sodium chloride 0.9% 700 mg 700 mg intravenous Q24H Amilcar Hancock MD 700 mg at 04/16/23 1416 dextrose (GLUTOSE) 40 % gel 15 g 15 g oral Q15 Min PRN Amilcar Hancock MD Or dextrose (D10W) 10% bolus 250 mL 250 mL intravenous Q15 Min PRN Amilcar Hancock MD ferric gluconate (FERRLECIT) 125 mg of elemental iron in sodium chloride 0.9% 100 mL IVPB 125 mg ofelemental iron intravenous Daily Hien Rabago MD 110 mL/hr at 04/16/232111 125 mg of elemental iron at 04/16/232111 folic acid (FOLVITE) tablet 1 mg 1 mg oral Daily Hien Rabago MD 1 mg at 04/17/23916 furosemide (LASIX) 10 mg/mL injection 80 mg 80 mg intravenous BID DIURETIC Amilcar Hancock MD 80 mg at 04/17/23916 glucagon injection 1 mg 1 mg intramuscular Q30 Min PRN Amilcar Hancock MD heparin 5,000 unit/mL injection 7,500 Units 7,500 Units subcutaneous Q8H ERICK Amilcar Hancock MD 7,500 Units at 04/17/23 06 insulin glargine (LANTUS, SEMGLEE) 100 unit/mL injection 22 Units 0.15 Units/kg subcutaneous Nightly Amilcar Hancock MD 22 Units at 04/16/232111 insulin lispro (HumaLOG, ADMELOG) 100 unit/mL injection 0-4 Units 0-4 Units subcutaneous Nightly Amilcar Hancock MD insulin lispro (HumaLOG, ADMELOG) 100 unit/mL injection 0-5 Units 0-5 Units subcutaneous TID with meals Amilcar Hancock MD insulin lispro (HumaLOG, ADMELOG) 100 unit/mL injection 7 Units 0.05 Units/kg subcutaneous TID withmeals Amilcar Hancock MD 7 Units at 04/16/23 180 ipratropium-albuteroL (DUO-NEB) 0.5-2.5 mg/3 mL nebulizer solution 3 mL 3 mL nebulization Q4H PRN (RT) Darell Paniagua MD metroNIDAZOLE (FLAGYL) tablet 500 mg 500 mg oral TID Dante Stubbs MD 500 mg at 04/17/23916 ondansetron ODT (ZOFRAN-ODT) disintegrating tablet 4 mg 4 mg oral Q6H PRN Amilcar Hancock MD Or ondansetron (ZOFRAN) injection 4 mg 4 mg intravenous Q6H PRN Amilcar Hancock MD sodium chloride (OCEAN) 0.65 % nasal spray 1 spray 1 spray each nostril Q2H PRN Darell Paniagua MD thiamine (VITAMIN B-1) tablet 50 mg 50 mg oral Daily Hien Rabago MD 50 mg at 04/17/23 0917 No Known Allergies Social History Tobacco Use Smoking status: Never Smokeless tobacco: Never Substance and Sexual Activity Drug use: Never Sexual activity: None Alcohol Use: Not on file History reviewed. No pertinent family history. Lab Results Component Value Date HGBA1C 6.5 (H) 04/16/2023 TSH 4.01 04/16/2023 TIBC 186 (L) 04/16/2023 INR 1.3 (H) 04/15/2023 DDIMER 6,270 (H) 04/15/2023 HCT 26.7 (L) 04/17/2023 MCH 26.2 (L) 04/17/2023 MCV 85.3 04/17/2023 MPV 9.2 04/17/2023 RBC 3.13 (L) 04/17/2023 RDW 11.7 12/13/2017 WBC 22.4 (H) 04/17/2023 Blood cultures x2 set day 2 no growth Assessment/Plan 1. Right diabetic foot infection with early signs of osteomyelitis of the calcaneal bone. Soft tissue extensive necrosis. Suspect mix infection. Currently on Rocephin, Flagyl and daptomycin. Total antibiotics day 3. Vascular surgery evaluation appreciated. 2. Chronic lower extremity stasis dermatitis. 3. Leukocytosis with white count trending down at 22,000. 4. Type 2 diabetes blood sugars are adequately controlled ranging between 91 and 148. Continue goodglycemic control. 5. Acute kidney injury renal function slightly improved creatinine is down at 2.1 with GFR up at 32. Continue hydration 6. Obesity with BMI of 49. 7. 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 Dante Stubbs MD [facility] Infectious Disease [place] Office [phone] * Darell Paniagua MD - 04/17/2023 5:56 AM CDT Progress Note Patient: Leeroy Canales ( - 1990) is a 32 y.o. female. Visit Date: 04/15/2023 Chief Complaint Patient presents with Shortness of Breath History of Present Illness: The patient is pleasant 32-year-old female who is bed-bound. 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 She is been taking care of by her mom and her sister. She does have history of diabetes. She does not smoke. She presented the emergency room complaining of progressive shortness of breath and cough for the past week or 2. Patient also was having trouble with a wound to her right foot and she is been having nausea. Her initial lab work showed creatinine 2 point 7, alk-phos 381 and albumin 1.8, ABGs showed pH 7.40, pCO2 36 and PO2 49 on room air, [place] [address]. Urinalysis showed UTI. Chest x-ray showed Findings are suggestive of pulmonary edema. Her V/Q scan was negative, her D-dimer was elevated. Patient was started on oxygen 4 liter/minute. She does not use oxygenat home or inhaler. She was admitted to the hospital and consultation was requested for further evaluation and management. Upon evaluating the patient, her attitude was depressed or flat. She does report slight postnasal drainage. She does report PND and orthopnea. She denies any history of hemoptysis, epistaxis, hematemesis, melena, hematochezia, diarrhea but constipation. She denies any history syncope or seizure activity. She denies history of fever or chills. She denies any contact with sick people or exposure toTB. She is up-to-date with COVID-19 vaccine. She lives in [place], [place]. She does havea cat at home who does not sleep in her bed. Patient does not ambulate. She was started on cefepime, daptomycin for treatment of possible osteomyelitis. 04/16 -Patient was seen and examined. Lab data were reviewed. Chest x-ray was reviewed by me. medication list was reviewed and adjusted as necessary. Patient is hemodynamically stable. Patient is afebrile.No event overnight. Questions by the patient about the care, plan, medication and possible side effects/ complication of treatment/ medication/ procedures were discussed with patient/ caring agents/ family in details to their satisfaction and understanding. Patient case discussed with the nurse caring for the patient. Patient is doing fair. Patient is feeling okay. She slept okay overnight. Her fluid balance was-400mL. No bowel movement was recorded. She is oxygenating adequately on 4 liter/minute of oxygen. 04/17 -Patient was seen and examined. Lab data were reviewed. Chest x-ray was reviewed by me. medication list was reviewed and adjusted as necessary. Patient is hemodynamically stable. Patient is afebrile.No event overnight. Questions by the patient about the care, plan, medication and possible side effects/ complication of treatment/ medication/ procedures were discussed with patient/ caring agents/ family in details to their satisfaction and understanding. Patient case discussed with the nurse caring for the patient. Patient is doing fair. Patient is feeling better. She is breathing easier. She slept okay overnight. Her oxygenation is adequate on 4 liter/[place] [address], albumin 1.3, fluid balance was-1 L. She did have bowel movement overnight. Past Medical History: Past Medical History: Diagnosis Date CHF (congestive heart failure) ([facility]) (HCC) CKD (chronic kidney disease) Diabetes mellitus (HCC) Hx of AKA (above knee amputation) ([facility]) (HCC) Left Hypertension Surgical History: Past Surgical History: Procedure Laterality Date ABOVE KNEE LEG AMPUTATION Left Current Medications: Current Facility-Administered Medications Medication Dose Route Frequency Provider Last Rate Last Admin acetaminophen (TYLENOL) tablet 650 mg 650 mg oral Q4H PRN Amilcar Hancock MD sodium chloride 0.9% flush 0.5-20 mL 0.5-20 mL intra-catheter Q8H Amilcar Vee MD 10 mL at04/16/23 1414 And sodium chloride 0.9% flush 0.5-20 mL 0.5-20 mL intra-catheter PRN Amilcar Hancock MD And Carrier Fluids for Secondary Infusion - 0.9% Sodium Chloride 30 mL intravenous PRN Amilcar Hancock MD cefTRIAXone (ROCEPHIN) 2,000 mg/20 mL in sterile water (premix) 2,000 mg 2,000 mg intravenous Q24H Dante Fitzgerald MD 2,000 mg at 04/16/23 1414 DAPTOmycin (CUBICIN) 50 mg/mL sodium chloride 0.9% 700 mg 700 mg intravenous Q24H Amilcar Hancock MD 700 mg at 04/16/23 1416 dextrose (GLUTOSE) 40 % gel 15 g 15 g oral Q15 Min PRN Amilcar Hancock MD Or dextrose (D10W) 10% bolus 250 mL 250 mL intravenous Q15 Min PRN Amilcar Hancock MD ferric gluconate (FERRLECIT) 125 mg of elemental iron in sodium chloride 0.9% 100 mL IVPB 125 mg ofelemental iron intravenous Daily Hien Rabago MD 110 mL/hr at 04/16/232111 125 mg of elemental iron at 04/16/232111 folic acid (FOLVITE) tablet 1 mg 1 mg oral Daily Hien Rabago MD 1 mg at 04/16/23 183 furosemide (LASIX) 10 mg/mL injection 80 mg 80 mg intravenous BID DIURETIC Amilcar Hancock MD 80 mg at 04/16/23 1518 glucagon injection 1 mg 1 mg intramuscular Q30 Min PRN Amilcar Hancock MD heparin 5,000 unit/mL injection 7,500 Units 7,500 Units subcutaneous Q8H ERICK Amilcar Hancock MD 7,500 Units at 04/16/232112 insulin glargine (LANTUS, SEMGLEE) 100 unit/mL injection 22 Units 0.15 Units/kg subcutaneous Nightly Amilcar Hancock MD 22 Units at 04/16/232111 insulin lispro (HumaLOG, ADMELOG) 100 unit/mL injection 0-4 Units 0-4 Units subcutaneous Nightly Amilcar Hancock MD insulin lispro (HumaLOG, ADMELOG) 100 unit/mL injection 0-5 Units 0-5 Units subcutaneous TID with meals Amilcar Hancock MD insulin lispro (HumaLOG, ADMELOG) 100 unit/mL injection 7 Units 0.05 Units/kg subcutaneous TID withmeals Amilcar Hancock MD 7 Units at 04/16/231800 ipratropium-albuteroL (DUO-NEB) 0.5-2.5 mg/3 mL nebulizer solution 3 mL 3 mL nebulization Q6H [place] (RT) Darell Paniagua MD metroNIDAZOLE (FLAGYL) tablet 500 mg 500 mg oral TID Dante Stubbs MD 500 mg at 04/16/232 ondansetron ODT (ZOFRAN-ODT) disintegrating tablet 4 mg 4 mg oral Q6H PRN Amilcar Hancock MD Or ondansetron (ZOFRAN) injection 4 mg 4 mg intravenous Q6H PRN Amilcar Hancock MD sodium chloride (OCEAN) 0.65 % nasal spray 1 spray 1 spray each nostril Q2H PRN Darell Paniagua MD thiamine (VITAMIN B-1) tablet 50 mg 50 mg oral Daily Hien Rabago MD 50 mg at 04/16/23 1838 Allergies: No Known Allergies Family History: History reviewed. No pertinent family history. Social History: Social History Tobacco Use Smoking status: Never Smokeless tobacco: Never Substance and Sexual Activity Drug use: Never Sexual activity: None Alcohol Use: Not on file Review of Systems: Review of Systems Constitutional: Positive for fatigue. Negative for appetite change, chills and fever. HENT: Negative for congestion, ear pain, mouth sores, tinnitus and voice change. Eyes: Negative for photophobia and pain. Respiratory: Positive for cough and shortness of breath. Negative for choking and stridor. Cardiovascular: Positive for leg swelling. Negative for chest pain and palpitations. Gastrointestinal: Negative for abdominal distention, abdominal pain and nausea. Endocrine: Negative for cold intolerance and polyphagia. Genitourinary: Negative for dysuria and hematuria. Musculoskeletal: Positive for gait problem. Negative for joint swelling. Skin: Negative for pallor and rash. Allergic/Immunologic: Negative for immunocompromised state. Neurological: Positive for weakness. Negative for seizures and facial asymmetry. Hematological: Negative for adenopathy. Does not bruise/bleed easily. Psychiatric/Behavioral: Negative for agitation and confusion. Physical Exam: Vitals: 04/16/23 1500 04/16/23 2305 04/17/23 0000 04/17/23 0414 BP: 112/67 129/76 120/73 BP Location: Left arm Left arm Left arm Patient Position: HOB 30 degrees HOB 30 degrees HOB 30 degrees Pulse: 79 79 88 84 Resp: 18 20 18 Temp: 36.4 ??C (97.6 ??F) 36.9 ??C (98.4 ??F) 36.9 ??C (98.5 ??F) TempSrc: Oral Oral Oral SpO2: 97% 93% 94% Weight: Height: Physical Exam Constitutional: General: She is not in acute distress. Appearance: She is well-developed. She is morbidly obese. She is ill-appearing. She is not diaphoretic. HENT: Head: Normocephalic and atraumatic. Neck: Thyroid: No thyromegaly. Cardiovascular: Rate and Rhythm: Normal rate and regular rhythm. Heart sounds: No murmur heard. No gallop. Pulmonary: Effort: Pulmonary effort is normal. No accessory muscle usage or respiratory distress. Breath sounds: No stridor. Examination of the right-upper field reveals decreased breath sounds. Examination of the left-upper field reveals decreased breath sounds. Examination of the right-lower field reveals rales. Examination of the left-lower field reveals rales. Decreased breath sounds and rales present. Chest: Chest wall: No tenderness. Abdominal: General: Bowel sounds are normal. There is no distension. Palpations: Abdomen is soft. Tenderness: There is no abdominal tenderness. Musculoskeletal: General: No tenderness or deformity. Normal range of motion. Cervical back: Normal range of motion and neck supple. Right lower leg: Edema present. Left lower leg: Edema present. Comments: Left BKA Lymphadenopathy: Cervical: No cervical adenopathy. Skin: General: Skin is warm and dry. Capillary Refill: Capillary refill takes less than 2 seconds. Findings: Lesion and rash present. No erythema. Neurological: Mental Status: She is alert and oriented to person, place, and time. Cranial Nerves: No cranial nerve deficit. Motor: Weakness present. Coordination: Coordination normal. Psychiatric: Mood and Affect: Mood is depressed. Behavior: Behavior normal. Data Reviewed Recent Results (from the past 24 hour(s)) CBC with auto differential Collection Time: 04/16/23 7:06 AM Result Value Ref Range WBC 23.0 (H) 3.8 - 9.9 K/cumm Hgb 8.0 (L) 11.9 - 15.5 g/dL Hct 25.7 (L) 35.6 - 45.5 % Plt 614 (H) 150 - 400 K/cumm MPV 9.2 9.1 - 12.3 fL RBC 2.99 (L) 3.90 - 5.20 M/cumm MCV 86.0 81.3 - 96.4 fL MCH 26.8 (L) 27.1 - 33.3 pg MCHC 31.1 (L) 32.3 - 35.7 g/dL RDW CV 17.2 (H) 11.1 - 14.9 % RDW SD 53.7 (H) 35.7 - 48.1 fL NRBC abs 0.18 (H) 0.00 - 0.01 K/cumm TSH reflex to free T4 Collection Time: 04/16/23 7:06 AM Result Value Ref Range TSH 4.01 0.30 - 4.20 mcIUnit/mL Comprehensive metabolic panel Collection Time: 04/16/23 7:06 AM Result Value Ref Range Sodium 139 135 - 145 mmol/L Potassium, pl 3.7 3.3 - 4.9 mmol/L Chloride 106 97 - 110 mmol/L CO2 23 22 - 32 mmol/L Anion gap 10 2 - 15 mmol/L BUN 34 (H) 8 - 25 mg/dL Creatinine 2.50 (H) 0.60 - 1.10 mg/dL Glucose 139 70 - 199 mg/dL Calcium 7.8 (L) 8.5 - 10.3 mg/dL Bilirubin, total 0.3 0.1 - 1.2 mg/dL Protein, pl 5.4 (L) 6.5 - 8.5 g/dL Albumin 1.6 (L) 3.5 - 5.0 g/dL Alk phos 327 (H) 40 - 130 Units/L ALT 28 7 - 45 Units/L AST 18 10 - 45 Units/L Hemoglobin A1c Collection Time: 04/16/23 7:06 AM Result Value Ref Range Hgb A1C 6.5 (H) 4.0 - 5.6 % Estimated Average Glucose 140 mg/dL Procalcitonin Collection Time: 04/16/23 7:06 AM Result Value Ref Range Procalcitonin 0.56 0.02 - 0.80 ng/mL Pro B-type natriuretic peptide Collection Time: 04/16/23 7:06 AM Result Value Ref Range NT-proBNP 11,534 (H) <=300 pg/mL Differential, auto Collection Time: 04/16/23 7:06 AM Result Value Ref Range Neutrophil abs 19.7 (H) 1.7 - 6.5 K/cumm Imm gran abs 0.4 (H) 0.0 - 0.1 K/cumm Lymphocyte abs 1.3 0.8 - 3.3 K/cumm Monocyte abs 1.4 (H) 0.2 - 0.8 K/cumm Eosinophil abs 0.2 0.0 - 0.5 K/cumm Basophil abs 0.0 0.0 - 0.1 K/cumm Neutrophil pct 85.4 % Imm gran pct 1.8 % Lymphocyte pct 5.7 % Monocyte pct 6.1 % Eosinophil pct 0.9 % Basophil pct 0.1 % eGFR Collection Time: 04/16/23 7:06 AM Result Value Ref Range eGFR 26 mL/min/1.73 m2 Creatine kinase (CK), total Collection Time: 04/16/23 7:06 AM Result Value Ref Range CK 105 30 - 200 Units/L POCT glucose Collection Time: 04/16/23 7:34 AM Result Value Ref Range Glucose, POC 148 70 - 199 mg/dL Glucose comment 1 Use This Result MRSA Only (Staphylococcs aureus) PCR Nasal Collection Time: 04/16/23 10:16 AM Specimen: Nasal Result Value Ref Range PCR Scrn, Methicillin resistant Staphylococcus aureus (MRSA) Not Detected Not Detected POCT glucose Collection Time: 04/16/23 12:32 PM Result Value Ref Range Glucose, POC 91 70 - 199 mg/dL Glucose comment 1 Use This Result Iron profile w/ IBC Collection Time: 04/16/23 3:37 PM Result Value Ref Range Iron 10 (L) 35 - 145 mcg/dL TIBC 186 (L) 250 - 400 mcg/dL Transferrin saturation 5 (L) 20 - 50 % Vitamin B12 Collection Time: 04/16/23 3:37 PM Result Value Ref Range Vitamin B12 924 230 - 1,250 pg/mL Folate Collection Time: 04/16/23 3:37 PM Result Value Ref Range Folic acid 3.5 (L) >=5.0 ng/mL POCT glucose Collection Time: 04/16/23 4:53 PM Result Value Ref Range Glucose, POC 106 70 - 199 mg/dL POCT glucose Collection Time: 04/16/23 7:45 PM Result Value Ref Range Glucose, POC 99 70 - 199 mg/dL Glucose comment 1 Use This Result Comprehensive metabolic panel Collection Time: 04/17/23 5:10 AM Result Value Ref Range Sodium 136 135 - 145 mmol/L Potassium, pl 3.9 3.3 - 4.9 mmol/L Chloride 106 97 - 110 mmol/L CO2 20 (L) 22 - 32 mmol/L Anion gap 10 2 - 15 mmol/L BUN 35 (H) 8 - 25 mg/dL Creatinine 2.10 (H) 0.60 - 1.10 mg/dL Glucose 99 70 - 199 mg/dL Calcium 7.8 (L) 8.5 - 10.3 mg/dL Bilirubin, total 0.3 0.1 - 1.2 mg/dL Protein, pl 5.5 (L) 6.5 - 8.5 g/dL Albumin 1.3 (L) 3.5 - 5.0 g/dL Alk phos 334 (H) 40 - 130 Units/L ALT 32 7 - 45 Units/L AST 29 10 - 45 Units/L CBC with auto differential Collection Time: 04/17/23 5:10 AM Result Value Ref Range WBC 22.4 (H) 3.8 - 9.9 K/cumm Hgb 8.2 (L) 11.9 - 15.5 g/dL Hct 26.7 (L) 35.6 - 45.5 % Plt 579 (H) 150 - 400 K/cumm MPV 9.2 9.1 - 12.3 fL RBC 3.13 (L) 3.90 - 5.20 M/cumm MCV 85.3 81.3 - 96.4 fL MCH 26.2 (L) 27.1 - 33.3 pg MCHC 30.7 (L) 32.3 - 35.7 g/dL RDW CV 17.3 (H) 11.1 - 14.9 % RDW SD 53.8 (H) 35.7 - 48.1 fL NRBC abs 0.21 (H) 0.00 - 0.01 K/cumm Magnesium Collection Time: 04/17/23 5:10 AM Result Value Ref Range Magnesium 2.2 1.4 - 2.5 mg/dL Phosphorus Collection Time: 04/17/23 5:10 AM Result Value Ref Range Phosphorus, pl 4.2 2.3 - 4.5 mg/dL Differential, auto Collection Time: 04/17/23 5:10 AM Result Value Ref Range Neutrophil abs 19.0 (H) 1.7 - 6.5 K/cumm Imm gran abs 0.3 (H) 0.0 - 0.1 K/cumm Lymphocyte abs 1.3 0.8 - 3.3 K/cumm Monocyte abs 1.5 (H) 0.2 - 0.8 K/cumm Eosinophil abs 0.2 0.0 - 0.5 K/cumm Basophil abs 0.0 0.0 - 0.1 K/cumm Neutrophil pct 84.9 % Imm gran pct 1.5 % Lymphocyte pct 5.8 % Monocyte pct 6.5 % Eosinophil pct 1.1 % Basophil pct 0.2 % eGFR Collection Time: 04/17/23 5:10 AM Result Value Ref Range eGFR 32 mL/min/1.73 m2 Images: NM Pulmonary Perfusion Imaging Result Date: 04/15/2023 Narrative: EXAM DESCRIPTION: NM PULMONARY PERFUSION IMAGING RADIOPHARMACEUTICAL: 4 mCi Tc-99m MAA via a right antecubital vein IV site REASON FOR STUDY: Chest pain. Shortness of breath and cough. TECHNIQUE: Limited multi-planar perfusion scintigrams were obtained. COMPARISON: Chest radiograph 04/15/2023 FINDINGS: Perfusion images obtained in the anterior, anterior oblique, and lateral projectionswere obtained. The posterior and posterior oblique projections were not obtained. There is mild enlargement of the cardiomediastinal silhouette. There are no large segmental perfusion defects on the provided images. IMPRESSION: 1. Limited perfusion lung scan with a low probability for pulmonary embolism. THIS IS AN ELECTRONICALLY VERIFIED FINAL REPORT 04/15/2023 4:31 PM - Electronically signed by Amor Rodriguez M.D. LB T: Report ID: [id number] Reading Location: [id number] XR Foot Right 3 or More Views Result Date: 04/15/2023 Narrative: EXAM DESCRIPTION: XR FOOT RIGHT 3 OR MORE VIEWS REASON FOR STUDY: Wound infection TECHNIQUE: 3 radiographic view(s) of the right foot . COMPARISON: 02/20/2023 FINDINGS: Plantar soft tissueulceration of the hindfoot with underlying soft tissue gas. There is diffuse soft tissue swelling of the foot, particularly involving the dorsal aspect of the mid to forefoot. No radiopaque foreign bodies. There is suspected mild osseous cortical erosion involving the plantar aspect of the calcaneus when compared to the prior exam. No acute fracture or dislocation. IMPRESSION: Prominent soft tissue ulceration of the plantar aspect of the hindfoot with underlying soft tissue gas. Suspected osseous cortical erosion involving the plantar aspect of the calcaneus, concerning for acute osteomyelitis. THIS IS AN ELECTRONICALLY VERIFIED FINAL REPORT 04/15/2023 2:51 PM - Electronically signed by Rio PHILLIPS T: Report ID: [id number] Reading Location: [id number] XR Chest 1 Vw Portable Result Date: 04/15/2023 Narrative: EXAM DESCRIPTION: XR CHEST 1 VIEW REASON FOR STUDY: Shortness of breath Pt with sob, weakness x 2-3 days Hx lg necrotic wnd on rt foot that she is being treated for Pt is lt leg amputee above the knee TECHNIQUE: 1 radiographic view(s) of the chest. COMPARISON: None FINDINGS: LUNGS: Diffuse bilateral interstitial opacities. No focal consolidation. No pneumothorax. No large pleural effusion. HEART/MEDIASTINUM: Cardiac silhouette is enlarged.. Mediastinal and hilar contours appear normal. LINES/TUBES: None. BONES: No acute osseous abnormality. IMPRESSION: Findings are suggestive of pulmonary edema. THIS IS AN ELECTRONICALLY VERIFIED FINAL REPORT 04/15/2023 2:43 PM - Electronically signed by Rio PHILLIPS T: Report ID: [id number] Reading Location: [id number] Assessment and Plan: Assessment Acute hypoxemic respiratory failure secondary to fluid overload/pulmonary edema and possible sepsis. No history of smoking. Bed bound. Right BKA. Renal insufficiency. Plan Oxygen keep ox saturation more than 92%. Bronchodilators around the clock and as needed with albuterol and Atrovent. Head of bed elevation and aspiration precaution. Diuresis, monitor O2 retires and fluid balance, monitor kidney function. Incentive spirometry and physical therapy. Out of bed to the chair if possible. Pulmonary toilet and pep valve. Check blood culture, sputum culture, ESR, CRP, BNP, procalcitonin and MRSA. Saline nasal spray twice daily. Patient would need outpatient split sleep study. Condition is guarded. Will monitor patient closely. Continue antibiotics, daptomycin and cefepime. Check 2D echocardiogram. 04/16 -continue daptomycin, cefepime, day 2., patient would need 2D echocardiogram to evaluate her cardiomegaly and fluid overload on chest x-ray. Continue monitoring electrolytes, kidney function, input and output. Continue bronchodilators, oxygen supplement keep ox saturation more than 92%, head of bedelevation, aspiration precaution, pep valve, pulmonary toilet, DVT and stress ulcer prophylaxis, continue wound care and continue monitor patient closely. Patient condition is guarded. 04/17 -daptomycin, cefepime(was switched to ceftriaxone and Flagyl), day 3., 2D echocardiogram was reviewed. Continue nutritional support, head of bed elevation, aspiration precaution, pulmonary toilet, DVT and stress ulcer prophylaxis, pep valve, bronchodilators, oxygen supplement keep ox saturation more than 92%, wean oxygen as tolerated, continue wound care, continue diuresis, monitor electrolytes and fluid balance, patient condition continued to be guarded. Rendering Provider & Department: Darell Paniagua MD THIS NOTE WAS CREATED IN PART WITH THE ASSISTANCE OF [employer]ICE [employer]. ASSISTANT PRODUCER VARIANCES MAY OCCUR. For patients or family members viewing this note through [employer]: This note was written as a communication tool between healthcare providers and may contain technical language, terminology and abbreviations that is difficult to interpret without advanced medical training. If you have questions or concerns regarding what is written in this note, please request to speak with the healthcare provider taking care of you or your family member. * Hien Rabago MD - 04/16/2023 6:17 PM CDT General Medicine Daily Progress DOA: 04/15/2023 Subjective Chief complaint of . Dyspnea Interval History: On 4 L supplemental oxygen Vascular surgery follow up for right foot osteomyelitis Past Medical History: Diagnosis Date CHF (congestive heart failure) (CMS/HCC) ([facility]) CKD (chronic kidney disease) Diabetes mellitus (HCC) Hx of AKA (above knee amputation) (CMS/HCC) ([facility]) Left Hypertension Objective Vitals: 24hr Min/Max: Temp Min: 36.3 ??C (97.4 ??F) Max: 36.7 ??C (98.1 ??F) Pulse Min: 68 Max: 79 BP Min: 112/67 Max: 124/75 Resp Min: 15 Max: 18 SpO2 Min: 87 % Max: 98 % Most Recent : Vitals: 04/16/23 1500 BP: 112/67 Pulse: 79 Resp: 18 Temp: 36.4 ??C (97.6 ??F) SpO2: 97% I/O last 2 completed shifts: In: 100 [P.O.:100] Out: 500 [Urine:500] No intake/output data recorded. Physical Exam: Physical Exam Constitutional: Appearance: She is well-developed. She is obese. She is ill-appearing. She is not diaphoretic. HENT: Head: Normocephalic. Eyes: Pupils: Pupils are equal, round, and reactive to light. Neck: Thyroid: No thyromegaly. Cardiovascular: Rate and Rhythm: Normal rate and regular rhythm. Pulmonary: Effort: Pulmonary effort is normal. No tachypnea. Breath sounds: Decreased breath sounds present. No wheezing, rhonchi or rales. Chest: Chest wall: No mass. Abdominal: General: Bowel sounds are normal. Palpations: Abdomen is soft. There is no hepatomegaly. Musculoskeletal: General: Normal range of motion. Cervical back: Normal range of motion. Right lower leg: Edema present. Left lower leg: Edema present. Skin: General: Skin is warm and dry. Capillary Refill: Capillary refill takes less than 2 seconds. Coloration: Skin is not cyanotic. Findings: Erythema present. Neurological: General: No focal deficit present. Mental Status: She is alert and oriented to person, place, and time. Psychiatric: Mood and Affect: Mood normal. Lab/Radiology/Diagnostic Review: Laboratory review: Chemistry BMP Lab Results Component Value Date GLUCOSE 106 04/16/2023 GLUCOSE 139 04/16/2023 CALCIUM 7.8 (L) 04/16/2023 SODIUM 139 04/16/2023 POTASSIUM 3.7 04/16/2023 CO2 23 04/16/2023 BUNSER 34 (H) 04/16/2023 CREATININE 2.50 (H) 04/16/2023 and CBC: Lab Results Component Value Date WBC 23.0 (H) 04/16/2023 RBC 2.99 (L) 04/16/2023 HGB 8.0 (L) 04/16/2023 HCT 25.7 (L) 04/16/2023 MCV 86.0 04/16/2023 MCH 26.8 (L) 04/16/2023 MCHC 31.1 (L) 04/16/2023 RDWCV 17.2 (H) 04/16/2023 RDWSD 53.7 (H) 04/16/2023 MPV 9.2 04/16/2023 NRBCABS 0.18 (H) 04/16/2023 Current Facility-Administered Medications Medication Dose Route Frequency Provider Last Rate Last Admin acetaminophen (TYLENOL) tablet 650 mg 650 mg oral Q4H PRN Amilcar Hancock MD sodium chloride 0.9% flush 0.5-20 mL 0.5-20 mL intra-catheter Q8H Amilcar Vee MD 10 mL at04/16/23 1414 And sodium chloride 0.9% flush 0.5-20 mL 0.5-20 mL intra-catheter PRN Amilcar Hancock MD And Carrier Fluids for Secondary Infusion - 0.9% Sodium Chloride 30 mL intravenous PRN Amilcar Hancock MD cefTRIAXone (ROCEPHIN) 2,000 mg/20 mL in sterile water (premix) 2,000 mg 2,000 mg intravenous Q24H Dante Fitzgerald MD 2,000 mg at 04/16/23 1414 DAPTOmycin (CUBICIN) 50 mg/mL sodium chloride 0.9% 700 mg 700 mg intravenous Q24H Amilcar Hancock MD 700 mg at 04/16/23 1416 dextrose (GLUTOSE) 40 % gel 15 g 15 g oral Q15 Min PRN Amilcar Hancock MD Or dextrose (D10W) 10% bolus 250 mL 250 mL intravenous Q15 Min PRN Amilcar Hancock MD furosemide (LASIX) 10 mg/mL injection 80 mg 80 mg intravenous BID DIURETIC Amilcar Hancock MD 80 mg at 04/16/23 1518 glucagon injection 1 mg 1 mg intramuscular Q30 Min PRN Amilcar Hancock MD heparin 5,000 unit/mL injection 7,500 Units 7,500 Units subcutaneous Q8H [facility] Amilcar Hancock MD 7,500 Units at 04/16/23 1414 insulin glargine (LANTUS, SEMGLEE) 100 unit/mL injection 22 Units 0.15 Units/kg subcutaneous Nightly Amilcar Hancock MD 22 Units at 04/15/23 2144 insulin lispro (HumaLOG, ADMELOG) 100 unit/mL injection 0-4 Units 0-4 Units subcutaneous Nightly Amilcar Hancock MD insulin lispro (HumaLOG, ADMELOG) 100 unit/mL injection 0-5 Units 0-5 Units subcutaneous TID with meals Amilcar Hancock MD insulin lispro (HumaLOG, ADMELOG) 100 unit/mL injection 7 Units 0.05 Units/kg subcutaneous TID withmeals Amilcar Hancock MD 7 Units at 04/16/23 1801 ipratropium-albuteroL (DUO-NEB) 0.5-2.5 mg/3 mL nebulizer solution 3 mL 3 mL nebulization Q6H [place] (RT) Darell Paniagua MD metroNIDAZOLE (FLAGYL) tablet 500 mg 500 mg oral TID Dante Stubbs MD 500 mg at 04/16/23 1518 ondansetron ODT (ZOFRAN-ODT) disintegrating tablet 4 mg 4 mg oral Q6H PRN Amilcar Hancock MD Or ondansetron (ZOFRAN) injection 4 mg 4 mg intravenous Q6H PRN Amilcar Hancock MD sodium chloride (OCEAN) 0.65 % nasal spray 1 spray 1 spray each nostril Q2H PRN Darell Paniagua MD Assessment/Plan Active Problems: Acute diastolic congestive heart failure (CMS/HCC) ([facility]) Type II diabetes mellitus with foot ulcer ([facility]) Hypertension Acute respiratory failure with hypoxia (CMS/HCC) ([facility]) Diarrhea Acute kidney failure (HCC) Elevated troponin Osteomyelitis ([facility]) Wounds, multiple Plan # acute hypoxemic respiratory failure 2/2 CHF exacerbation with acute heart failure -on 4 L supplemental oxygen -patient is morbidly obese, likely OHS component -echocardiogram to rule out heart failure exacerbation -on Lasix 80 mg IV b.i.d. # COPD -continue bronchodilator -on 4 L supplemental oxygen # iron-deficiency anemia and folate deficiency -start iron sucrose IV and then oral -start thiamine and folic acid # acute osteomyelitis of the right foot calcaneum # abdominal wall infection panniculitis -on ceftriaxone, metronidazole and daptomycin day 1 -follow vascular surgery consult recommendation -follow ID consult recommendations # diabetes mellitus -continue insulin regimen # CKD 3A Stable -follow renal consult recommendation # PVD -follow vascular surgery recommendation DVT prophylaxis: Heparin GI prophylaxis: Ppi Rehab consult: Ongoing CODE status: Full Code Discharge disposition: Home * Mihir Trejo - 04/16/2023 4:47 PM CDT Visited briefly with pt and mother. Pt was not up for long visit. Gave POA packet and brief explanation of POA. * Dallas Peña MD - 04/16/2023 12:38 PM CDT Renal Progress Note Admit Date: 04/15/2023 Days: 1 Reason for Follow up: Acute on chronic kidney failure Clinical Course/New Symptoms Patient denies any nausea or vomiting. Denies any shortness of breath, fever or chills. Data Vitals: 04/16/23 0835 BP: Pulse: 75 Resp: Temp: SpO2: Exam Constitutional: alert and oriented. Appears well-developed and well-nourished, in no distress. HighBMI Head: Normocephalic. Eyes: No icterus, extraocular movements normal Neck: Neck supple. Cardiovascular: Normal rate and regular rhythm. No murmur heard. Pulmonary/Chest: Diminished breath sounds bilaterally, on oxygen via nasal cannula. Abdominal: Soft. Musculoskeletal: Right lower extremity edema. Neurological: alert and moves all 4 limbs. Skin: No rashes Intake/Output Summary (Last 24 hours) at 04/16/2023 1239 Last data filed at 04/16/2023 0550 Gross per 24 hour Intake 100 ml Output 500 ml Net -400 ml MEDICATIONS FOR CURRENT ENCOUNTER: SCHEDULED MEDICATIONS: Scheduled Medications Medication Dose Route Frequency cefTRIAXone (ROCEPHIN) 2,000 mg/20 mL in sterile water (premix) 2,000 mg 2,000 mg intravenous Q24H ERICK DAPTOmycin (CUBICIN) 50 mg/mL sodium chloride 0.9% 700 mg 700 mg intravenous Q24H furosemide (LASIX) 10 mg/mL injection 80 mg 80 mg intravenous BID DIURETIC heparin 5,000 unit/mL injection 7,500 Units 7,500 Units subcutaneous Q8H [facility] insulin glargine (LANTUS, SEMGLEE) 100 unit/mL injection 22 Units 0.15 Units/kg subcutaneous Nightly insulin lispro (HumaLOG, ADMELOG) 100 unit/mL injection 0-4 Units 0-4 Units subcutaneous Nightly insulin lispro (HumaLOG, ADMELOG) 100 unit/mL injection 0-5 Units 0-5 Units subcutaneous TID with meals insulin lispro (HumaLOG, ADMELOG) 100 unit/mL injection 7 Units 0.05 Units/kg subcutaneous TID withmeals ipratropium-albuteroL (DUO-NEB) 0.5-2.5 mg/3 mL nebulizer solution 3 mL 3 mL nebulization Q6H [place] (RT) metroNIDAZOLE (FLAGYL) tablet 500 mg 500 mg oral TID sodium chloride 0.9% flush 0.5-20 mL 0.5-20 mL intra-catheter Q8H [facility] CONTINUOUS MEDICATIONS: Current Facility-Administered Medications Medication Dose Route Frequency Last Admin PRN MEDICATIONS: PRN Medications Medication Dose Route Frequency Last Admin acetaminophen (TYLENOL) tablet 650 mg 650 mg oral Q4H PRN sodium chloride 0.9% flush 0.5-20 mL 0.5-20 mL intra-catheter PRN And Carrier Fluids for Secondary Infusion - 0.9% Sodium Chloride 30 mL intravenous PRN dextrose (GLUTOSE) 40 % gel 15 g 15 g oral Q15 Min PRN Or dextrose (D10W) 10% bolus 250 mL 250 mL intravenous Q15 Min PRN glucagon injection 1 mg 1 mg intramuscular Q30 Min PRN ondansetron ODT (ZOFRAN-ODT) disintegrating tablet 4 mg 4 mg oral Q6H PRN Or ondansetron (ZOFRAN) injection 4 mg 4 mg intravenous Q6H PRN sodium chloride (OCEAN) 0.65 % nasal spray 1 spray 1 spray each nostril Q2H PRN My review of labs, imaging, notes and other tests is significant for Recent Labs Lab Units 04/16/23 0706 04/15/23 1341 WBC K/cumm 23.0* 32.1* HEMOGLOBIN g/dL 8.0* 8.7* HEMATOCRIT % 25.7* 27.6* PLATELETS K/cumm 614* 669* . Recent Labs Lab Units 04/16/23 1232 04/16/23 0734 04/16/23 0706 04/15/23 1956 04/15/23 1543 04/15/23 1341 SODIUM mmol/L -- -- 139 -- 136 136 POTASSIUM PLASMA mmol/L -- -- 3.7 -- 4.3 4.0 CHLORIDE mmol/L -- -- 106 -- 107 103 CO2 mmol/L -- -- 23 -- 18* 24 CREATININE mg/dL -- -- 2.50* -- 2.70* 2.70* GLUCOSE mg/dL -- -- 139 -- 193 192 POC GLUCOSE MONITOR mg/dL 91 148 -- < > -- -- CALCIUM mg/dL -- -- 7.8* -- 7.9* 8.1* ALBUMIN g/dL -- -- 1.6* -- -- 1.8* < > = values in this interval not displayed. .No lab exists for component: COLORUA, CHARACTERUA, SPECGRAVUA, PHUA, PROTEINUA, BLOODUA, LEUKOCYTEUA, NITRITEUA, GLUCOSEUA, KETONEUA, BILIRUBINUA, UROBILINUA, WBCUA, RBCUA, EPITHUA, MUCUSUA, CASTUA,CRYSTALUA, BACTERIAUA, YEASTUA, TRICHUA NM Pulmonary Perfusion Imaging EXAM DESCRIPTION: CA PULMONARY PERFUSION IMAGING RADIOPHARMACEUTICAL: 4 mCi Tc-99m MAA via a right antecubital vein IV site REASON FOR STUDY: Chest pain. Shortness of breath and cough. TECHNIQUE: Limited multi-planar perfusion scintigrams were obtained. COMPARISON: Chest radiograph 04/15/2023 FINDINGS: Perfusion images obtained in the anterior, anterior oblique, and lateral projections were obtained. The posterior and posterior oblique projections were not obtained. There is mild enlargement of the cardiomediastinal silhouette. There are no large segmental perfusion defects on the provided images. IMPRESSION: 1. Limited perfusion lung scan with a low probability for pulmonary embolism. THIS IS AN ELECTRONICALLY VERIFIED FINAL REPORT 04/15/2023 4:31 PM - Electronically signed by Amor Rodriguez M.D. T: Report ID: [id number] Reading Location: [id number] XR Foot Right 3 or More Views EXAM DESCRIPTION: XR FOOT RIGHT 3 OR MORE VIEWS REASON FOR STUDY: Wound infection TECHNIQUE: 3 radiographic view(s) of the right foot . COMPARISON: 02/20/2023 FINDINGS: Plantar soft tissue ulceration of the hindfoot with underlying soft tissue gas. There is diffuse soft tissue swelling of the foot, particularly involving the dorsal aspect of the mid to forefoot. No radiopaque foreign bodies. There is suspected mild osseous cortical erosion involving the plantar aspect of the calcaneus when compared to the prior exam. No acute fracture or dislocation. IMPRESSION: Prominent soft tissue ulceration of the plantar aspect of the hindfoot with underlying soft tissue gas. Suspected osseous cortical erosion involving the plantar aspect of the calcaneus, concerning for acute osteomyelitis. THIS IS AN ELECTRONICALLY VERIFIED FINAL REPORT 04/15/2023 2:51 PM - Electronically signed by Rio PHILLIPS T: Report ID: [id number] Reading Location: [id number] XR Chest 1 Vw Portable EXAM DESCRIPTION: XR CHEST 1 VIEW REASON FOR STUDY: Shortness of breath Pt with sob, weakness x 2-3 days Hx lg necrotic wnd on rt foot that she is being treated for Pt is lt leg amputee above the knee TECHNIQUE: 1 radiographic view(s) of the chest. COMPARISON: None FINDINGS: LUNGS: Diffuse bilateral interstitial opacities. No focal consolidation. No pneumothorax. No large pleural effusion. HEART/MEDIASTINUM: Cardiac silhouette is enlarged.. Mediastinal and hilar contours appear normal. LINES/TUBES: None. BONES: No acute osseous abnormality. IMPRESSION: Findings are suggestive of pulmonary edema. THIS IS AN ELECTRONICALLY VERIFIED FINAL REPORT 04/15/2023 2:43 PM - Electronically signed by Rio PHILLIPS T: Report ID: [id number] Reading Location: [id number] Assessment and Plan Active Problems: Acute diastolic congestive heart failure (CMS/HCC) (HCC) Type II diabetes mellitus with foot ulcer (HCC) Hypertension Acute respiratory failure with hypoxia (CMS/HCC) (HCC) Diarrhea Acute kidney failure (HCC) Elevated troponin Osteomyelitis (HCC) Wounds, multiple Resolved Problems: No resolved hospital problems. BOBBY on CKD in the setting of significant volume overload/pulmonary edema, unclear whether has obstructive uropathy as well, will check a postvoid residual. Does appear quite volume overloaded and will initiate IV furosemide. Obtaining a urinalysis with microscopy as well as a spot urine protein to c reatinine ratio as albumin is 1.8, likely has significant proteinuria. May need to order autoimmuneserology if active UA sediment. Echocardiogram is pending, previous echo with adequate EF and mild diastolic dysfunction. Obtaining a renal ultrasound as well. No acute need for dialysis and hopefully to respond to diuretics. Does have significant leukocytosis may have underlying infection, blood cultures pending, initiated on empiric antibiotics as well. 04/16/2023 Denies any urinary symptoms. Continue furosemide 80 mg IV b.i.d.. Has sub nephrotic proteinuria was1.8 g per g as per a spot sample. Continues to have significantly high leukocytosis. On antibiotics. Urine output noted, probably incomplete. Anemia. Will check iron profile, B12 and folate. Monitor urine output accurately. 2D echo is pending. 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 Noted vascular surgery recommendations regarding a rightabove-knee amputation which the patient declines. Thank you. Dallas Peña MD [facility] Office: [phone] * Sultan Sofía Muro MD - 04/16/2023 11:44 AM CDT +Patient ID: Leeroy Canales is a 32 y.o. female. Chief Complaint Patient presents with Shortness of Breath HPI: 04/15/2023.Patient is a 32 y.o. female with chief complaint of increasing dyspnea for the lastfew days. She is been dyspneic on lying down as well as on minimal activity. Cough on lying down. No chest pain. No nausea or vomiting. No fever or chills. No diarrhea. No palpitation, presyncope or syncope. No wheezing. She is morbidly obese. Has history of hypertension and insulin- dependent diabetes mellitus. She was told a few weeks ago that she might have congestive heart failure. Is no history of myocardial infarction. No coronary artery bypass surgery or coronary artery stenting. She underwent about the knee amputation of the left leg at [facility] a few months ago for osteomyelitis. On this ad mission, the chest x-ray shows gross cardiomegaly, fluid overload. She has stage IV close to stage 5 kidney disease. Severe hypoxia. No history of heavy drinking, smoking or drug abuse. 04/16/2023. No acute distress. No chest pain dyspnea orthopnea or PND. No cough. Monitor normal sinus rhythm. Workup in progress. Echo Doppler awaited. Current Medications: acetaminophen sodium chloride 0.9% And sodium chloride 0.9% And sodium chloride 0.9% cefTRIAXone DAPTOmycin dextrose Or dextrose furosemide glucagon heparin insulin glargine insulin lispro insulin lispro insulin lispro ipratropium-albuteroL metroNIDAZOLE ondansetron ODT Or ondansetron sodium chloride Review of Systems: Constitutional. No fever or chills. Morbid obesity. Central nervous system. No headaches. No seizures. Respiratory system.. Initially cough on lying down. No cough today. Cardiovascular system.. Initially dyspnea on mild activity and orthopnea. No palpitation, presyncope or syncope.. Hypertension. Congestive heart failure. GI tract.. No nausea, vomiting, abdominal pain. No diarrhea. Endocrine system. Insulin-dependent diabetes mellitus. Hematology/oncology. No anemia. No malignancy.. Psychiatric system. No anxiety or depression. tract. Renal insufficiency. Physical Exam: BP 121/74 (BP Location: Left arm, Patient Position: Lying) Pulse 75 Temp 36.3 ??C (97.4 ??F) (Oral) Resp 15 Ht 170.2 cm (5' 7 ) Wt (!) 144.2 kg (318 lb) SpO2 98% BMI 49.81 kg/m?? General. No acute distress. Centtral nervous system.. No focal deficits. The respiratory system. Lungs clear to auscultation and percussion. No rales or rhonchi.. Cardiovascular system. Heart regular. Normal S1 and S2. No murmur, gallop or click.. Abdomen. Soft nontender. Bowel sounds normal.. Skin. Warm and dry with good turgor.. Neck. No jugular venous distention.. Extremities. Left AKA. Lab Results Component Value Date SODIUM 139 04/16/2023 POTASSIUM 3.7 04/16/2023 CO2 23 04/16/2023 BUNSER 34 (H) 04/16/2023 GLUCOSE 148 04/16/2023 CREATININE 2.50 (H) 04/16/2023 CALCIUM 7.8 (L) 04/16/2023 CHLORIDE 106 04/16/2023 ALBUMIN 1.6 (L) 04/16/2023 ALT 28 04/16/2023 AST 18 04/16/2023 ALKPHOS 327 (H) 04/16/2023 BILITOT 0.3 04/16/2023 PROT 5.4 (L) 04/16/2023 WBC 23.0 (H) 04/16/2023 HGB 8.0 (L) 04/16/2023 TSH 4.01 04/16/2023 NPROBNP 11,534 (H) 04/16/2023 Assessment & Plan:1. Acute congestive heart failure. Gross cardiomegaly on x-ray of the chest. May have cardiomyopathy. Also renal insufficiency contributing to the fluid overload. Lasix for decongestion and consultation with Nephrology. Echo Doppler to assess the left ventricular systolic function. Input 100, output 500. Net balance -400. 2. Renal insufficiency. BUN 34, creatinine 2.50. GFR 26 . Stage IV close to stage 5 kidney disease.Nephrology nephrology consulting. 3. Primary hypertension. Blood pressure 121/74. Salt restriction. Lasix. 4. Insulin-dependent diabetes mellitus. 5. Morbid obesity. 6. Status post left AKA. 7. Elevated troponin T... Troponin T 97, 87, 94, 89. Most probably related to the renal insufficiency and congestive heart failure. 8. Leukocytosis. White cell count was 32.1 on 04/15/2023. Twenty-three thousand today. Blood cultures negative. Question of osteomyelitis right calcaneum. Rocephin. Maxipime. Cubicin. Flagyl. Vancomycin. Sultan Sofía Muro MD * Darell Paniagua MD - 04/16/2023 6:13 AM CDT Progress Note Patient: Leeroy Canales ( - 1990) is a 32 y.o. female. Visit Date: 04/15/2023 Chief Complaint Patient presents with Shortness of Breath History of Present Illness: The patient is pleasant 32-year-old female who is bed-bound. 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 She is been taking care of by her mom and her sister. She does have history of diabetes. She does not smoke. She presented the emergency room complaining of progressive shortness of breath and cough for the past week or 2. Patient also was having trouble with a wound to her right foot and she is been having nausea. Her initial lab work showed creatinine 2 point 7, alk-phos 381 and albumin 1.8, ABGs showed pH 7.40, pCO2 36 and PO2 49 on room air, [place] WBC [place] [address]. Urinalysis showed UTI. Chest x-ray showed Findings are suggestive of pulmonary edema. Her V/Q scan was negative, her D-dimer was elevated. Patient was started on oxygen 4 liter/minute. She does not use oxygenat home or inhaler. She was admitted to the hospital and consultation was requested for further evaluation and management. Upon evaluating the patient, her attitude was depressed or flat. She does report slight postnasal drainage. She does report PND and orthopnea. She denies any history of hemoptysis, epistaxis, hematemesis, melena, hematochezia, diarrhea but constipation. She denies any history syncope or seizure activity. She denies history of fever or chills. She denies any contact with sick people or exposure toTB. She is up-to-date with COVID-19 vaccine. She lives in [place], [place]. She does havea cat at home who does not sleep in her bed. Patient does not ambulate. She was started on cefepime, daptomycin for treatment of possible osteomyelitis. 04/16 -Patient was seen and examined. Lab data were reviewed. Chest x-ray was reviewed by me. medication list was reviewed and adjusted as necessary. Patient is hemodynamically stable. Patient is afebrile.No event overnight. Questions by the patient about the care, plan, medication and possible side effects/ complication of treatment/ medication/ procedures were discussed with patient/ caring agents/ family in details to their satisfaction and understanding. Patient case discussed with the nurse caring for the patient. Patient is doing fair. Patient is feeling okay. She slept okay overnight. Her fluid balance was-400mL. No bowel movement was recorded. She is oxygenating adequately on 4 liter/minute of oxygen. Past Medical History: Past Medical History: Diagnosis Date CHF (congestive heart failure) (CMS/HCC) (HCC) Diabetes mellitus (HCC) Hypertension Surgical History: Past Surgical History: Procedure Laterality Date ABOVE KNEE LEG AMPUTATION Left Current Medications: Current Facility-Administered Medications Medication Dose Route Frequency Provider Last Rate Last Admin acetaminophen (TYLENOL) tablet 650 mg 650 mg oral Q4H PRN Amilcar Hancock MD sodium chloride 0.9% flush 0.5-20 mL 0.5-20 mL intra-catheter Q8H Amilcar Vee MD 10 mL at04/15/232143 And sodium chloride 0.9% flush 0.5-20 mL 0.5-20 mL intra-catheter PRN Amilcar Hancock MD And Carrier Fluids for Secondary Infusion - 0.9% Sodium Chloride 30 mL intravenous PRN Amilcar Hancock MD cefepime (MAXIPIME) 1,000 mg in sodium chloride 0.9% 100 mL IVPB 1,000 mg intravenous Q8H Amilcar Vee MD 200 mL/hr at 04/15/232143 1,000 mg at 04/15/232143 DAPTOmycin (CUBICIN) 50 mg/mL sodium chloride 0.9% 700 mg 700 mg intravenous Q24H Amilcar Hancock MD dextrose (GLUTOSE) 40 % gel 15 g 15 g oral Q15 Min PRN Amilcar Hancock MD Or dextrose (D10W) 10% bolus 250 mL 250 mL intravenous Q15 Min PRN Amilcar Hancock MD furosemide (LASIX) 10 mg/mL injection 80 mg 80 mg intravenous BID DIURETIC Amilcar Hancock MD 80 mg at 04/15/23 1703 glucagon injection 1 mg 1 mg intramuscular Q30 Min PRN Amilcar Hancock MD heparin 5,000 unit/mL injection 7,500 Units 7,500 Units subcutaneous Q8H Amilcar Vee MD 7,500 Units at 04/15/232143 insulin glargine (LANTUS, SEMGLEE) 100 unit/mL injection 22 Units 0.15 Units/kg subcutaneous Nightly Amilcar Hancock MD 22 Units at 04/15/232143 insulin lispro (HumaLOG, ADMELOG) 100 unit/mL injection 0-4 Units 0-4 Units subcutaneous Nightly Amilcar Hancock MD insulin lispro (HumaLOG, ADMELOG) 100 unit/mL injection 0-5 Units 0-5 Units subcutaneous TID with meals Amilcar Hancock MD insulin lispro (HumaLOG, ADMELOG) 100 unit/mL injection 7 Units 0.05 Units/kg subcutaneous TID withmeals Amilcar Hancock MD ipratropium-albuteroL (DUO-NEB) 0.5-2.5 mg/3 mL nebulizer solution 3 mL 3 mL nebulization QID (RT) Darell Paniagua MD ondansetron ODT (ZOFRAN-ODT) disintegrating tablet 4 mg 4 mg oral Q6H PRN Amilcar Hancock MD Or ondansetron (ZOFRAN) injection 4 mg 4 mg intravenous Q6H PRN Amilcar Hancock MD sodium chloride (OCEAN) 0.65 % nasal spray 1 spray 1 spray each nostril Q2H PRN Darell Paniagua MD Allergies: No Known Allergies Family History: History reviewed. No pertinent family history. Social History: Social History Tobacco Use Smoking status: Never Smokeless tobacco: Never Substance and Sexual Activity Drug use: Never Sexual activity: None Alcohol Use: Not on file Review of Systems: Review of Systems Constitutional: Positive for fatigue. Negative for appetite change, chills and fever. HENT: Negative for congestion, ear pain, mouth sores, tinnitus and voice change. Eyes: Negative for photophobia and pain. Respiratory: Positive for cough and shortness of breath. Negative for choking and stridor. Cardiovascular: Positive for leg swelling. Negative for chest pain and palpitations. Gastrointestinal: Negative for abdominal distention, abdominal pain and nausea. Endocrine: Negative for cold intolerance and polyphagia. Genitourinary: Negative for dysuria and hematuria. Musculoskeletal: Positive for gait problem. Negative for joint swelling. Skin: Negative for pallor and rash. Allergic/Immunologic: Negative for immunocompromised state. Neurological: Positive for weakness. Negative for seizures and facial asymmetry. Hematological: Negative for adenopathy. Does not bruise/bleed easily. Psychiatric/Behavioral: Negative for agitation and confusion. Physical Exam: Vitals: 04/15/23 2343 04/16/23 0245 04/16/23 0249 04/16/23 0328 BP: 124/75 112/71 BP Location: Left arm Left arm Patient Position: HOB 30 degrees HOB 30 degrees Pulse: 73 72 Resp: 17 18 Temp: 36.4 ??C (97.6 ??F) 36.5 ??C (97.7 ??F) TempSrc: Oral Oral SpO2: 95% (!) 87% 98% 97% Weight: Height: Physical Exam Constitutional: General: She is not in acute distress. Appearance: She is well-developed. She is morbidly obese. She is ill-appearing. She is not diaphoretic. HENT: Head: Normocephalic and atraumatic. Neck: Thyroid: No thyromegaly. Cardiovascular: Rate and Rhythm: Normal rate and regular rhythm. Heart sounds: No murmur heard. No gallop. Pulmonary: Effort: Pulmonary effort is normal. No accessory muscle usage or respiratory distress. Breath sounds: No stridor. Examination of the right-upper field reveals decreased breath sounds. Examination of the left-upper field reveals decreased breath sounds. Examination of the right-lower field reveals rales. Examination of the left-lower field reveals rales. Decreased breath sounds and rales present. Chest: Chest wall: No tenderness. Abdominal: General: Bowel sounds are normal. There is no distension. Palpations: Abdomen is soft. Tenderness: There is no abdominal tenderness. Musculoskeletal: General: No tenderness or deformity. Normal range of motion. Cervical back: Normal range of motion and neck supple. Right lower leg: Edema present. Left lower leg: Edema present. Comments: Left BKA Lymphadenopathy: Cervical: No cervical adenopathy. Skin: General: Skin is warm and dry. Capillary Refill: Capillary refill takes less than 2 seconds. Findings: Lesion and rash present. No erythema. Neurological: Mental Status: She is alert and oriented to person, place, and time. Cranial Nerves: No cranial nerve deficit. Motor: Weakness present. Coordination: Coordination normal. Psychiatric: Mood and Affect: Mood is depressed. Behavior: Behavior normal. Data Reviewed Recent Results (from the past 24 hour(s)) Comprehensive metabolic panel Collection Time: 04/15/23 1:41 PM Result Value Ref Range Sodium 136 135 - 145 mmol/L Potassium, pl 4.0 3.3 - 4.9 mmol/L Chloride 103 97 - 110 mmol/L CO2 24 22 - 32 mmol/L Anion gap 9 2 - 15 mmol/L BUN 38 (H) 8 - 25 mg/dL Creatinine 2.70 (H) 0.60 - 1.10 mg/dL Glucose 192 70 - 199 mg/dL Calcium 8.1 (L) 8.5 - 10.3 mg/dL Bilirubin, total 0.5 0.1 - 1.2 mg/dL Protein, pl 6.1 (L) 6.5 - 8.5 g/dL Albumin 1.8 (L) 3.5 - 5.0 g/dL Alk phos 381 (H) 40 - 130 Units/L ALT 31 7 - 45 Units/L AST 25 10 - 45 Units/L CBC with auto differential Collection Time: 04/15/23 1:41 PM Result Value Ref Range WBC 32.1 (H) 3.8 - 9.9 K/cumm Hgb 8.7 (L) 11.9 - 15.5 g/dL Hct 27.6 (L) 35.6 - 45.5 % Plt 669 (H) 150 - 400 K/cumm MPV 9.2 9.1 - 12.3 fL RBC 3.27 (L) 3.90 - 5.20 M/cumm MCV 84.4 81.3 - 96.4 fL MCH 26.6 (L) 27.1 - 33.3 pg MCHC 31.5 (L) 32.3 - 35.7 g/dL RDW CV 16.9 (H) 11.1 - 14.9 % RDW SD 52.6 (H) 35.7 - 48.1 fL NRBC abs 0.28 (H) 0.00 - 0.01 K/cumm Troponin T high-sensitivity series (baseline, 2hr, 4hr, 6hr) Collection Time: 04/15/23 1:41 PM Result Value Ref Range Trop T hs 97 (H) <=14 ng/L Pro B-type natriuretic peptide Collection Time: 04/15/23 1:41 PM Result Value Ref Range NT-proBNP 13,499 (H) <=300 pg/mL Sepsis Lactate w/ Reflex Collection Time: 04/15/23 1:41 PM Result Value Ref Range Sepsis Lactate 0.9 0.7 - 2.0 mmol/L D-dimer, quantitative Collection Time: 04/15/23 1:41 PM Result Value Ref Range D-Dimer 6,270 (H) <=499 ng/mL FEU Protime-INR Collection Time: 04/15/23 1:41 PM Result Value Ref Range PT 15.9 (H) 12.0 - 14.6 sec INR 1.3 (H) 0.9 - 1.2 aPTT Collection Time: 04/15/23 1:41 PM Result Value Ref Range aPTT 33 22 - 37 sec Differential, auto Collection Time: 04/15/23 1:41 PM Result Value Ref Range Neutrophil abs 28.4 (H) 1.7 - 6.5 K/cumm Imm gran abs 0.6 (H) 0.0 - 0.1 K/cumm Lymphocyte abs 1.2 0.8 - 3.3 K/cumm Monocyte abs 1.7 (H) 0.2 - 0.8 K/cumm Eosinophil abs 0.1 0.0 - 0.5 K/cumm Basophil abs 0.1 0.0 - 0.1 K/cumm Neutrophil pct 88.5 % Imm gran pct 2.0 % Lymphocyte pct 3.8 % Monocyte pct 5.3 % Eosinophil pct 0.2 % Basophil pct 0.2 % Manual Differential Collection Time: 04/15/23 1:41 PM Result Value Ref Range Differential Auto Neutrophil abs 28.4 (H) 1.7 - 6.5 K/cumm Imm gran abs 0.6 (H) 0.0 - 0.1 K/cumm Lymphocyte abs 1.2 0.8 - 3.3 K/cumm Monocyte abs 1.7 (H) 0.2 - 0.8 K/cumm Eosinophil abs 0.1 0.0 - 0.5 K/cumm Basophil abs 0.1 0.0 - 0.1 K/cumm Neutrophil pct 88.5 % Imm gran pct 2.0 % Lymphocyte pct 3.8 % Monocyte pct 5.3 % Eosinophil pct 0.2 % Basophil pct 0.2 % RBC morphology Present (A) Hypochromasia 3-7/HPF (A) Platelet estimate Automated Count Confirmed eGFR Collection Time: 04/15/23 1:41 PM Result Value Ref Range eGFR 24 mL/min/1.73 m2 Blood gas, arterial Collection Time: 04/15/23 1:50 PM Result Value Ref Range pH, Art 7.40 7.35 - 7.45 PCO2, Arterial 36 35 - 45 mmHg PO2, Arterial 49 (Critical) 83 - 108 mmHg HCO3 Art (Calculated) 22 20 - 30 mmol/L BE, art -2 mmol/L O2 Sat Art (Measured) 78 (L) 90 - 95 % Electrolytes, whole blood Collection Time: 04/15/23 1:50 PM Result Value Ref Range Sodium, Whole Blood 135 135 - 145 mmol/L Potassium, bld 3.9 3.3 - 4.9 mmol/L Ca, ionized, bld 4.76 4.45 - 5.25 mg/dL Glucose, whole blood Collection Time: 04/15/23 1:50 PM Result Value Ref Range Glucose, bld 199 70 - 199 mg/dL Lactate, whole blood Collection Time: 04/15/23 1:50 PM Result Value Ref Range Lactate, bld 0.7 0.7 - 2.0 mmol/L Carboxyhemoglobin, art Collection Time: 04/15/23 1:50 PM Result Value Ref Range Carboxyhemoglobin, arterial 1.7 0.0 - 2.9 % Hemoglobin, total, art Collection Time: 04/15/23 1:50 PM Result Value Ref Range Hemoglobin, Total, Arterial 8.5 (L) 11.9 - 15.5 g/dL Basic metabolic panel Collection Time: 04/15/23 3:43 PM Result Value Ref Range Sodium 136 135 - 145 mmol/L Potassium, pl 4.3 3.3 - 4.9 mmol/L Chloride 107 97 - 110 mmol/L CO2 18 (L) 22 - 32 mmol/L Anion gap 11 2 - 15 mmol/L BUN 40 (H) 8 - 25 mg/dL Creatinine 2.70 (H) 0.60 - 1.10 mg/dL Glucose 193 70 - 199 mg/dL Calcium 7.9 (L) 8.5 - 10.3 mg/dL eGFR Collection Time: 04/15/23 3:43 PM Result Value Ref Range eGFR 24 mL/min/1.73 m2 Troponin T high-sensitivity 2-hour Collection Time: 04/15/23 3:43 PM Result Value Ref Range Trop T hs 87 (H) <=14 ng/L Trop T hs delta -10 (Critical) ng/L Trop T hs interp Significant (Critical) Creatine kinase (CK), total Collection Time: 04/15/23 3:43 PM Result Value Ref Range CK 177 30 - 200 Units/L Influenza A/B, RSV, and COVID-19 PCR Nasopharyngeal Collection Time: 04/15/23 4:52 PM Specimen: Nasopharyngeal Result Value Ref Range COVID-19 RNA Negative Negative Influenza A RNA Negative Negative Influenza B RNA Negative Negative RSV RNA Negative Negative Troponin T high-sensitivity 4-hour Collection Time: 04/15/23 5:37 PM Result Value Ref Range Trop T hs 94 (H) <=14 ng/L Trop T hs delta -3 ng/L Trop T hs interp Insignificant Aerobic and anaerobic culture and gram stain Wound Heel, left Collection Time: 04/15/23 5:37 PM Specimen: Heel, left; Wound Result Value Ref Range Direct Specimen Exam (.) Stain: No polymorphonuclear leukocytes seen. Abundant Gram Positive Cocci Abundant Gram Positive Bacilli Abundant Gram Negative Bacilli Aerobic and anaerobic culture and gram stain Wound Abdominal, right lower quadrant Collection Time: 04/15/23 6:26 PM Specimen: Abdominal, right lower quadrant; Wound Result Value Ref Range Direct Specimen Exam (.) Stain: Few polymorphonuclear leukocytes seen. Rare Gram Positive Bacilli Rare Gram Positive Cocci POCT glucose Collection Time: 04/15/23 7:56 PM Result Value Ref Range Glucose, POC 189 70 - 199 mg/dL Glucose comment 1 Use This Result Glucose comment 2 RN/MD Notified Troponin T high-sensitivity 6-hour Collection Time: 04/15/23 8:51 PM Result Value Ref Range Trop T hs 89 (H) <=14 ng/L Trop T hs delta See Comment ng/L Trop T hs pct delta See Comment % Trop T hs interp See Comment Urinalysis reflex to microscopic and culture Urine Collection Time: 04/16/23 4:23 AM Specimen: Urine Result Value Ref Range Color, ur Yellow Yellow Clarity, ur Cloudy (A) Clear Specific gravity, ur 1.012 1.003 - 1.030 pH, urine 5.0 Protein, ur ql 2+ (A) Negative Glucose, ur ql 1+ (A) Negative Ketones, ur Negative Negative Bilirubin, ur Negative Negative Blood, ur 2+ (A) Negative Urobilinogen, ur <2.0 <2.0 mg/dL Nitrite, ur Negative Negative Leukocyte esterase, ur 1+ (A) Negative UA reflex comment Reflex to microscopic UA will be performed. Protein / creatinine ratio, urine, random Collection Time: 04/16/23 4:23 AM Result Value Ref Range Protein, ur, quant 241.0 mg/dL Creatinine Ur 127.0 mg/dL Protein/creatinine ratio 1,897.6 (H) 0.0 - 180.0 mg/g CR Urinalysis, microscopic only Collection Time: 04/16/23 4:23 AM Result Value Ref Range WBC, ur 6-10 (A) 0 - 5 /HPF RBC, ur 6-10 (A) 0 - 2 /HPF Epithelial cells, squamous, ur 1-5 0 - 5 /HPF Bacteria, ur 1+ (A) Yeast, ur 2+ (A) Mucous, ur Present (A) Hyaline casts, ur 21-50 (A) 0 - 10 /LPF Granular casts, ur 1-5 (A) 0 - 0 /LPF Culture Reflex Comment Reflex conditions for urine culture (WBC >10) not met. Images: NM Pulmonary Perfusion Imaging Result Date: 04/15/2023 Narrative: EXAM DESCRIPTION: CA PULMONARY PERFUSION IMAGING RADIOPHARMACEUTICAL: 4 mCi Tc-99m MAA via a right antecubital vein IV site REASON FOR STUDY: Chest pain. Shortness of breath and cough. TECHNIQUE: Limited multi-planar perfusion scintigrams were obtained. COMPARISON: Chest radiograph 04/15/2023 FINDINGS: Perfusion images obtained in the anterior, anterior oblique, and lateral projectionswere obtained. The posterior and posterior oblique projections were not obtained. There is mild enlargement of the cardiomediastinal silhouette. There are no large segmental perfusion defects on the provided images. IMPRESSION: 1. Limited perfusion lung scan with a low probability for pulmonary embolism. THIS IS AN ELECTRONICALLY VERIFIED FINAL REPORT 04/15/2023 4:31 PM - Electronically signed by Amor Rodirguez M.D. LB T: Report ID: [id number] Reading Location: [id number] XR Foot Right 3 or More Views Result Date: 04/15/2023 Narrative: EXAM DESCRIPTION: XR FOOT RIGHT 3 OR MORE VIEWS REASON FOR STUDY: Wound infection TECHNIQUE: 3 radiographic view(s) of the right foot . COMPARISON: 02/20/2023 FINDINGS: Plantar soft tissueulceration of the hindfoot with underlying soft tissue gas. There is diffuse soft tissue swelling of the foot, particularly involving the dorsal aspect of the mid to forefoot. No radiopaque foreign bodies. There is suspected mild osseous cortical erosion involving the plantar aspect of the calcaneus when compared to the prior exam. No acute fracture or dislocation. IMPRESSION: Prominent soft tissue ulceration of the plantar aspect of the hindfoot with underlying soft tissue gas. Suspected osseous cortical erosion involving the plantar aspect of the calcaneus, concerning for acute osteomyelitis. THIS IS AN ELECTRONICALLY VERIFIED FINAL REPORT 04/15/2023 2:51 PM - Electronically signed by Rio PHILLIPS T: Report ID: [id number] Reading Location: [id number] XR Chest 1 Vw Portable Result Date: 04/15/2023 Narrative: EXAM DESCRIPTION: XR CHEST 1 VIEW REASON FOR STUDY: Shortness of breath Pt with sob, weakness x 2-3 days Hx lg necrotic wnd on rt foot that she is being treated for Pt is lt leg amputee above the knee TECHNIQUE: 1 radiographic view(s) of the chest. COMPARISON: None FINDINGS: LUNGS: Diffuse bilateral interstitial opacities. No focal consolidation. No pneumothorax. No large pleural effusion. HEART/MEDIASTINUM: Cardiac silhouette is enlarged.. Mediastinal and hilar contours appear normal. LINES/TUBES: None. BONES: No acute osseous abnormality. IMPRESSION: Findings are suggestive of pulmonary edema. THIS IS AN ELECTRONICALLY VERIFIED FINAL REPORT 04/15/2023 2:43 PM - Electronically signed by Rio PHILLIPS T: Report ID: [id number] Reading Location: [id number] Assessment and Plan: Assessment Acute hypoxemic respiratory failure secondary to fluid overload/pulmonary edema and possible sepsis. No history of smoking. Bed bound. Right BKA. Renal insufficiency. Plan Oxygen keep ox saturation more than 92%. Bronchodilators around the clock and as needed with albuterol and Atrovent. Head of bed elevation and aspiration precaution. Diuresis, monitor O2 retires and fluid balance, monitor kidney function. Incentive spirometry and physical therapy. Out of bed to the chair if possible. Pulmonary toilet and pep valve. Check blood culture, sputum culture, ESR, CRP, BNP, procalcitonin and MRSA. Saline nasal spray twice daily. Patient would need outpatient split sleep study. Condition is guarded. Will monitor patient closely. Continue antibiotics, daptomycin and cefepime. Check 2D echocardiogram. 04/16 -continue daptomycin, cefepime, day 2., patient would need 2D echocardiogram to evaluate her cardiomegaly and fluid overload on chest x-ray. Continue monitoring electrolytes, kidney function, input and output. Continue bronchodilators, oxygen supplement keep ox saturation more than 92%, head of bedelevation, aspiration precaution, pep valve, pulmonary toilet, DVT and stress ulcer prophylaxis, continue wound care and continue monitor patient closely. Patient condition is guarded. Rendering Provider & Department: Darell Paniagua MD THIS NOTE WAS CREATED IN PART WITH THE ASSISTANCE OF [employer]. ASSISTANT PRODUCER VARIANCES MAY OCCUR. For patients or family members viewing this note through [employer]: This note was written as a communication tool between healthcare providers and may contain technical language, terminology and abbreviations that is difficult to interpret without advanced medical training. If you have questions or concerns regarding what is written in this note, please request to speak with the healthcare provider taking care of you or your family member. * Luca Schmitt, [facility] - 04/15/2023 8:30 PM CDT Daptomycin Consult Note Leeroy Canaels is a 32 y.o. female patient admitted to [facility] 2 [id number]. Pharmacy service has been consulted for daptomycin dosing and monitoring. Therapy Summary: Indication: Osteomyelitis Start Date: 04/15 Pertinent Microbiology: Date Test Results 04/15 Blood culture in process 04/15 Wound culture, abdominal In process Dosing Considerations: Body Habitus: Height: Ht Readings from Last 1 Encounters: 04/15/23 170.2 cm (5' 7 ) Weight: Wt Readings from Last 3 Encounters: 04/15/23 (!) 144.2 kg (318 lb) 02/20/23 109 kg (240 lb 4.8 oz) BMI: BMI Readings from Last 1 Encounters: 04/15/23 49.81 kg/m?? Renal Function: Lab Results Component Value Date CREATININE 2.70 (H) 04/15/2023 CREATININE 2.70 (H) 04/15/2023 CREATININE 1.30 (H) 02/20/2023 CREATININE 1.1 12/13/2017 CREATININE 0.9 12/04/2016 Baseline SCr (mg/dL) prior to admission/daptomycin therapy: 1.0 (not enough labs to truly assess) Dialysis: N/A Clinical Parameters: Lab Results Component Value Date CK 177 04/15/2023 Assessment/Plan 1) Renal assessment --- Calculated CrCl (mL/min): CrCl > 30 mL/min Renal status: >30% change in last 72 hours. Close therapy assessment and monitoring warranted. 2) Weight assessment --- For dosing, will utilize adjusted body weight (weight >/= 111 kg *OR* BMI >/= 40). Dosing weight appears relatively stable. 3) Dosing plan --- Will begin daptomycin 700 mg IV every 24 hours. Current regimen gives ~7 mg/kg based on dosing weight. 4) Anticipated duration of therapy --- To be determined 5) Labs ordered --- Monitor CK: every 72 hours Next CK level: 04/18 @ 0500 Next BMP/SCr: daily 6) Pharmacy will continue to follow patient's clinical progress throughout admission. Will continueto monitor labs and adjust doses accordingly. Thank you for the opportunity to participate in the care of this patient. documented in this encounter H&P Notes * Marilin Garcia MD - 04/24/2023 9:31 AM CDT Interval H & P I reviewed the patient's history and physical examination prior to the procedure, and there are no changes. * Alyson Washington PA - 04/15/2023 4:55 PM CDT Images from the original note were not included. History and Physical Date of Service: 04/15/2023 Date of Admission:04/15/2023 Primary Care Physician: Cherise Patrick PA [phone] CHIEF COMPLAINT: Patient is a 32 y.o. female with a PMHx significant for type 2 diabetes, hypertension, diastolic dysfunction and left [id number] amputation. Presents to the ED with a chief complaint of hypoxemia HPI: Patient being admitted for multiple comorbid medical problems. Patient reports that in December of this year she had a left [id number] amputation. Since that time she has been bed ridden. She lives at home with her mother who is her caregiver. She reports over the last few months she is had a sore to her right heel. She denies pain. She has not noticed redness or swelling more than normal. She states over the last couple of weeks she has been having increasing dyspnea especially when she lays down at night. She has noticed some swelling to her abdomen since that time. She was found to be hypoxemic by her home health nurse and was sent to the ER for further evaluation. She denies chest pain or palpitations. No nausea or vomiting. She reports she has had recurrent diarrhea however over the last few days and is unsure why. No abdominal pain. No fever or chills. She is not on oxygen at home. She reports her blood sugars have been running high lately. They recently changed her to Trulicity. History provided by patient Past Medical History: Diagnosis Date Diabetes mellitus (HCC) Hypertension History reviewed. No pertinent surgical history. (Not in a hospital admission) No Known Allergies Social History Tobacco Use Smoking status: Never Smokeless tobacco: Never Substance and Sexual Activity Drug use: Never Sexual activity: None Alcohol Use: Not on file History reviewed. No pertinent family history. OBJECTIVE: Vitals: Arrival Vitals Temp 04/15/23 1336 36.7 ??C (98.1 ??F) Pulse 04/15/23 1336 80 Resp 04/15/23 1336 22 BP 04/15/23 1336 135/76 SpO2 04/15/23 1336 (!) 85 % Temp src 04/15/23 1336 Oral Heart Rate Source 04/15/23 1500 Monitor Patient Position -- BP Location -- FiO2 (%) -- O2 Therapy for the past 12 hrs: O2 Therapy O2 Flow Rate (L/min) 04/15/23 1630 -- 2 L/min 04/15/23 1622 -- 2 L/min 04/15/23 1500 Supplemental oxygen 3 L/min 04/15/23 1400 Supplemental oxygen 3 L/min 04/15/23 1350 None (Room air) -- 04/15/23 1336 None (Room air) -- Most Recent : Vitals: 04/15/23 1400 04/15/23 1500 04/15/23 1622 04/15/23 1630 BP: 139/73 153/85 140/80 132/77 Pulse: 79 78 77 78 Resp: 18 Temp: TempSrc: SpO2: 97% 97% 97% 98% Weight: Height: No intake/output data recorded. No intake/output data recorded. Physical Exam: Physical Exam Vitals and nursing note reviewed. Constitutional: General: She is not in acute distress. Appearance: She is well-developed. She is morbidly obese. HENT: Head: Normocephalic and atraumatic. Mouth/Throat: Mouth: Mucous membranes are dry. Pharynx: Oropharynx is clear. Eyes: General: No scleral icterus. Right eye: No discharge. Left eye: No discharge. Conjunctiva/sclera: Conjunctivae normal. Pupils: Pupils are equal, round, and reactive to light. Neck: Thyroid: No thyromegaly. Cardiovascular: Rate and Rhythm: Normal rate and regular rhythm. Heart sounds: Normal heart sounds. No murmur heard. No friction rub. No gallop. Pulmonary: Effort: Respiratory distress present. Breath sounds: Rales present. No wheezing. Comments: Increased respiratory rate and effort, crackles to the bases bilaterally Chest: Chest wall: No tenderness. Abdominal: General: Bowel sounds are normal. There is no distension. Palpations: Abdomen is soft. Tenderness: There is no abdominal tenderness. There is no guarding or rebound. Hernia: No hernia is present. Comments: Patient has pitting edema to her pannus of her abdomen, along the right lower pannus there is a superficial wound that is approximately 4 cm in diameter by 4 cm in diameter with erythema around the border. No notable drainage. There several multiple small superficial lesions next to this that are all less than 6 mm. All without drainage. Nontender on exam see media below Musculoskeletal: General: No tenderness or deformity. Cervical back: Normal range of motion and neck supple. Right lower leg: Edema present. Comments: Left [id number]-[id number] amputation well healed Lymphadenopathy: Cervical: No cervical adenopathy. Skin: General: Skin is warm and dry. Capillary Refill: Capillary refill takes less than 2 seconds. Findings: Erythema present. No rash. Comments: The heel of the right foot has an approximate 4 cm area eschar within an ulceration. Thewound is malodorous. There is thick dry skin surrounding the ulceration with erythema and swelling noted. No notable drainage. Nontender on exam. The dorsum of the right foot is edematous and the patient has no palpable pulse however a pulse was dopplered to the lower extremity. There is erythema liu rrounding the left medial ankle extending into the sher. The patient has multiple blisters to the right sher and notable venous stasis. 2+ edema to the lower extremity see media below Neurological: Mental Status: She is alert and oriented to person, place, and time. Sensory: No sensory deficit. Psychiatric: Behavior: Behavior normal. Thought Content: Thought content normal. Judgment: Judgment normal. Lab/Radiology/Diagnostic Review: Recent Results (from the past 24 hour(s)) Comprehensive metabolic panel Collection Time: 04/15/23 1:41 PM Result Value Ref Range Sodium 136 135 - 145 mmol/L Potassium, pl 4.0 3.3 - 4.9 mmol/L Chloride 103 97 - 110 mmol/L CO2 24 22 - 32 mmol/L Anion gap 9 2 - 15 mmol/L BUN 38 (H) 8 - 25 mg/dL Creatinine 2.70 (H) 0.60 - 1.10 mg/dL Glucose 192 70 - 199 mg/dL Calcium 8.1 (L) 8.5 - 10.3 mg/dL Bilirubin, total 0.5 0.1 - 1.2 mg/dL Protein, pl 6.1 (L) 6.5 - 8.5 g/dL Albumin 1.8 (L) 3.5 - 5.0 g/dL Alk phos 381 (H) 40 - 130 Units/L ALT 31 7 - 45 Units/L AST 25 10 - 45 Units/L CBC with auto differential Collection Time: 04/15/23 1:41 PM Result Value Ref Range WBC 32.1 (H) 3.8 - 9.9 K/cumm Hgb 8.7 (L) 11.9 - 15.5 g/dL Hct 27.6 (L) 35.6 - 45.5 % Plt 669 (H) 150 - 400 K/cumm MPV 9.2 9.1 - 12.3 fL RBC 3.27 (L) 3.90 - 5.20 M/cumm MCV 84.4 81.3 - 96.4 fL MCH 26.6 (L) 27.1 - 33.3 pg MCHC 31.5 (L) 32.3 - 35.7 g/dL RDW CV 16.9 (H) 11.1 - 14.9 % RDW SD 52.6 (H) 35.7 - 48.1 fL NRBC abs 0.28 (H) 0.00 - 0.01 K/cumm Troponin T high-sensitivity series (baseline, 2hr, 4hr, 6hr) Collection Time: 04/15/23 1:41 PM Result Value Ref Range Trop T hs 97 (H) <=14 ng/L Pro B-type natriuretic peptide Collection Time: 04/15/23 1:41 PM Result Value Ref Range NT-proBNP 13,499 (H) <=300 pg/mL Sepsis Lactate w/ Reflex Collection Time: 04/15/23 1:41 PM Result Value Ref Range Sepsis Lactate 0.9 0.7 - 2.0 mmol/L D-dimer, quantitative Collection Time: 04/15/23 1:41 PM Result Value Ref Range D-Dimer 6,270 (H) <=499 ng/mL FEU Protime-INR Collection Time: 04/15/23 1:41 PM Result Value Ref Range PT 15.9 (H) 12.0 - 14.6 sec INR 1.3 (H) 0.9 - 1.2 aPTT Collection Time: 04/15/23 1:41 PM Result Value Ref Range aPTT 33 22 - 37 sec Differential, auto Collection Time: 04/15/23 1:41 PM Result Value Ref Range Neutrophil abs 28.4 (H) 1.7 - 6.5 K/cumm Imm gran abs 0.6 (H) 0.0 - 0.1 K/cumm Lymphocyte abs 1.2 0.8 - 3.3 K/cumm Monocyte abs 1.7 (H) 0.2 - 0.8 K/cumm Eosinophil abs 0.1 0.0 - 0.5 K/cumm Basophil abs 0.1 0.0 - 0.1 K/cumm Neutrophil pct 88.5 % Imm gran pct 2.0 % Lymphocyte pct 3.8 % Monocyte pct 5.3 % Eosinophil pct 0.2 % Basophil pct 0.2 % Manual Differential Collection Time: 04/15/23 1:41 PM Result Value Ref Range Differential Auto Neutrophil abs 28.4 (H) 1.7 - 6.5 K/cumm Imm gran abs 0.6 (H) 0.0 - 0.1 K/cumm Lymphocyte abs 1.2 0.8 - 3.3 K/cumm Monocyte abs 1.7 (H) 0.2 - 0.8 K/cumm Eosinophil abs 0.1 0.0 - 0.5 K/cumm Basophil abs 0.1 0.0 - 0.1 K/cumm Neutrophil pct 88.5 % Imm gran pct 2.0 % Lymphocyte pct 3.8 % Monocyte pct 5.3 % Eosinophil pct 0.2 % Basophil pct 0.2 % RBC morphology Present (A) Hypochromasia 3-7/HPF (A) Platelet estimate Automated Count Confirmed eGFR Collection Time: 04/15/23 1:41 PM Result Value Ref Range eGFR 24 mL/min/1.73 m2 Blood gas, arterial Collection Time: 04/15/23 1:50 PM Result Value Ref Range pH, Art 7.40 7.35 - 7.45 PCO2, Arterial 36 35 - 45 mmHg PO2, Arterial 49 (Critical) 83 - 108 mmHg HCO3 Art (Calculated) 22 20 - 30 mmol/L BE, art -2 mmol/L O2 Sat Art (Measured) 78 (L) 90 - 95 % Electrolytes, whole blood Collection Time: 04/15/23 1:50 PM Result Value Ref Range Sodium, Whole Blood 135 135 - 145 mmol/L Potassium, bld 3.9 3.3 - 4.9 mmol/L Ca, ionized, bld 4.76 4.45 - 5.25 mg/dL Glucose, whole blood Collection Time: 04/15/23 1:50 PM Result Value Ref Range Glucose, bld 199 70 - 199 mg/dL Lactate, whole blood Collection Time: 04/15/23 1:50 PM Result Value Ref Range Lactate, bld 0.7 0.7 - 2.0 mmol/L Carboxyhemoglobin, art Collection Time: 04/15/23 1:50 PM Result Value Ref Range Carboxyhemoglobin, arterial 1.7 0.0 - 2.9 % Hemoglobin, total, art Collection Time: 04/15/23 1:50 PM Result Value Ref Range Hemoglobin, Total, Arterial 8.5 (L) 11.9 - 15.5 g/dL Basic metabolic panel Collection Time: 04/15/23 3:43 PM Result Value Ref Range Sodium 136 135 - 145 mmol/L Potassium, pl 4.3 3.3 - 4.9 mmol/L Chloride 107 97 - 110 mmol/L CO2 18 (L) 22 - 32 mmol/L Anion gap 11 2 - 15 mmol/L BUN 40 (H) 8 - 25 mg/dL Creatinine 2.70 (H) 0.60 - 1.10 mg/dL Glucose 193 70 - 199 mg/dL Calcium 7.9 (L) 8.5 - 10.3 mg/dL eGFR Collection Time: 04/15/23 3:43 PM Result Value Ref Range eGFR 24 mL/min/1.73 m2 Troponin T high-sensitivity 2-hour Collection Time: 04/15/23 3:43 PM Result Value Ref Range Trop T hs 87 (H) <=14 ng/L Trop T hs delta -10 (Critical) ng/L Trop T hs interp Significant (Critical) NM Pulmonary Perfusion Imaging Result Date: 04/15/2023 Narrative: EXAM DESCRIPTION: CA PULMONARY PERFUSION IMAGING RADIOPHARMACEUTICAL: 4 mCi Tc-99m MAA via a right antecubital vein IV site REASON FOR STUDY: Chest pain. Shortness of breath and cough. TECHNIQUE: Limited multi-planar perfusion scintigrams were obtained. COMPARISON: Chest radiograph 04/15/2023 FINDINGS: Perfusion images obtained in the anterior, anterior oblique, and lateral projectionswere obtained. The posterior and posterior oblique projections were not obtained. There is mild enlargement of the cardiomediastinal silhouette. There are no large segmental perfusion defects on the provided images. IMPRESSION: 1. Limited perfusion lung scan with a low probability for pulmonary embolism. THIS IS AN ELECTRONICALLY VERIFIED FINAL REPORT 04/15/2023 4:31 PM - Electronically signed by Amor MAURER T: Report ID: [id number] Reading Location: [id number] XR Foot Right 3 or More Views Result Date: 04/15/2023 Narrative: EXAM DESCRIPTION: XR FOOT RIGHT 3 OR MORE VIEWS REASON FOR STUDY: Wound infection TECHNIQUE: 3 radiographic view(s) of the right foot . COMPARISON: 02/20/2023 FINDINGS: Plantar soft tissueulceration of the hindfoot with underlying soft tissue gas. There is diffuse soft tissue swelling of the foot, particularly involving the dorsal aspect of the mid to forefoot. No radiopaque foreign bodies. There is suspected mild osseous cortical erosion involving the plantar aspect of the calcaneus when compared to the prior exam. No acute fracture or dislocation. IMPRESSION: Prominent soft tissue ulceration of the plantar aspect of the hindfoot with underlying soft tissue gas. Suspected osseous cortical erosion involving the plantar aspect of the calcaneus, concerning for acute osteomyelitis. THIS IS AN ELECTRONICALLY VERIFIED FINAL REPORT 04/15/2023 2:51 PM - Electronically signed by Rio PHILLIPS T: Report ID: [id number] Reading Location: [id number] XR Chest 1 Vw Portable Result Date: 04/15/2023 Narrative: EXAM DESCRIPTION: XR CHEST 1 VIEW REASON FOR STUDY: Shortness of breath Pt with sob, weakness x 2-3 days Hx lg necrotic wnd on rt foot that she is being treated for Pt is lt leg amputee above the knee TECHNIQUE: 1 radiographic view(s) of the chest. COMPARISON: None FINDINGS: LUNGS: Diffuse bilateral interstitial opacities. No focal consolidation. No pneumothorax. No large pleural effusion. HEART/MEDIASTINUM: Cardiac silhouette is enlarged.. Mediastinal and hilar contours appear normal. LINES/TUBES: None. BONES: No acute osseous abnormality. IMPRESSION: Findings are suggestive of pulmonary edema. THIS IS AN ELECTRONICALLY VERIFIED FINAL REPORT 04/15/2023 2:43 PM - Electronically signed by Rio PHILLIPS T: Report ID: [id number] Reading Location: [id number] ASSESSMENT/PLAN: Active Problems: Acute diastolic congestive heart failure (CMS/HCC) (HCC) Type II diabetes mellitus with foot ulcer (HCC) Acute respiratory failure with hypoxia (CMS/HCC) (HCC) Osteomyelitis (HCC) Diarrhea Acute kidney failure (HCC) Elevated troponin Hypertension Wounds, multiple Resolved Problems: No resolved hospital problems. 1. Acute diastolic CHF with acute respiratory failure and hypoxemia-upon arrival to the ED the patient's O2 saturation was found to be at 85%. Patient was placed on 2 L of O2 per nasal cannula. ABG confirmed hypoxemia with a PO2 of 49, pCO2 of 36, pH of 7.4 and bicarb of 22[place] [address]. Chest x-ray confirmed cardiomegaly with pulmonary edema. Patient was given Lasix 60 mg IV. And this will be continued b.i.d. Fortune catheter was ordered for strict monitoring of I's and O's. Cardiology Dr. Alexandra was consulted. 2D echo will be ordered. Patient did have a positive downward trending troponin. She is not actively having chest pain or palpitations. Will continue to monitor. Will place on heparin subQ at this time. Continue troponins until 4 obtained. Patient will be on telemetry as well as constant SpO2 monitoring. 2. Type 2 diabetes with foot ulcer/osteomyelitis of right heel-the patient's white blood cell countis elevated significantly at 32,100. Lactate was within normal range. The patient does have a diminished distal pulse to her right lower extremity. Vascular Dr. Orestes Mccoy was consulted as well as Infectious Disease Dr. Stubbs as the patient has had a prior left [id number] amputation. She was placed on vancomycin 2000 mg and cefepime 2000 mg. I spoke with Anjelica in pharmacy and she believes daptomycin is a better choice for the patient. Will cover her for MRSA given her wound on her abdomen has a yellow, moist discoloration. Will continue cefepime 1 g per renal dosing. The patient will be placed on a sliding scale. Stop Trulicity as this was recently started. Decrease Lantus to 8 units at bedtime from 10 units. Check CBC daily 3. BOBBY on CKD-the patient's BUN is elevated at 38 and her creatinine is elevated 2.7. Creatinine 1 month ago was 1.3. She does have significant proteinuria. Nephrology Dr. Friedman was consulted. Recheck BMP daily 4. Hypertension-patient's blood pressure has been mildly elevated. Will continue Norvasc 10 mg daily, carvedilol 12.5 b.i.d. 5. Multiple wounds-will consult Wound Care and take cultures of both wounds I spoke with the patient concerning diagnosis, treatment and plan. She agrees with the plan. No Order Advance Care Planning Advance Care Planning Advance Care Planning Conversation Pertinent diagnoses: Acute CHF, osteomyelitis, acute on chronic renal failure The patient and/or family consented to a voluntary Advance Care Planning conversation. Individuals present for the conversation: patient Summary of the conversation: In the event of a cardiopulmonary arrest the patient began crying whenI asked her if she wanted everything done to save her life. She said no. She declined CPR or intubation. She states, ???I am just tired of living like this . As the patient was very upset I explainedto her I will have clergy come and speak with her about her options. Clearly she is only 32 years old but also has multiple comorbid medical conditions and is clearly feeling overwhelmed with the multitude of medical problems and complications she is having. At this time will make her code status limited. She can change this at any time. I spoke with her and told her that her family may not agreewith her and she understands. She is agreeable to sign papers. Outcome of the conversation and documents completed (select all that apply): limited code status I spent 10 minutes providing separately identifiable ACP services with the patient and/or surrogatedecision maker in a voluntary, in-person conversation discussing the patient's wishes and goals as detailed in the above note. TOÑITO Mi ESTIMATED LENGTH OF STAY: > 2 midnights My total encounter time on 04/15/2023 was 80 minutes which was spent in the activities documented inthe note. This includes time spent prior to the visit and after the visit in direct care of the patient. This time does not include time spent in any separately reportable services. Medical Decision Making Complexity: high DVT prophylaxis:heparin PT/OT: ordered Consult to Case Management and/or Filter Machine Operator Voice recognition software MModal Fluency Direct may have been used to dictate and transcribe this document. Education Analyst variances may occur. Despite proofreading, typographical errors may occur. TOÑITO Mi 04/15/2023 5:20 PM For patients or family members viewing this note through mPorticot: This note was written as a communication tool between healthcare providers and may contain technical language, terminology and abbreviations that is difficult to interpret without advanced medical training. If you have questions or concerns regarding what is written in this note, please request to speak with the primary medical team taking care of you or your family member. Cosigned by Amilcar Hancock MD at 04/15/2023 6:04 PM CDT Associated attestation - Amilcar Hancock MD - 04/15/2023 6:04 PM CDT This is an attestation note to the H&P to be completed by TOÑITO. The patient was seen and examined independently of PA. HPI: Patient presented to the hospital increasing dyspnea Specially orthopnea for about a month. She also was noted to have a wound on the right foot. She had left below-knee amputation for ???infection ???in December 2022 She also has right-sided abdominal wounds that is noted for about a week Past Medical history: Significant for CKD stage 3, type 2 diabetes mellitus History of heart attack. No history of heart failure. Had left below-knee amputation done at [facility] earlier this year Lives at home with her mom On examination: Patient appears comfortable with 2 L nasal cannula. Chest bibasilar crackles. CVS S1-S2 normal no murmurs rubs gallops Extremities: Left BKA. Right foot plantar ulcer at the heel with slough Feeble pulses Edema, 4+ anasarca Labs/imaging: Creatinine 2.7 previous creatinine in February 2023 was 1.3. Albumin is 1.8. White bloodcell counts 32. ABG shows PO2 of 49. Chest x-ray shows cardiomegaly and pulmonary edema. Right foot x-ray shows osteomyelitis Assessment 1. Acute respiratory failure with hypoxia 2. Acute pulmonary edema cardiogenic 3. Acute CHF possibility systolic 4. Acute osteomyelitis of the right foot calcaneum Cellulitis and soft tissue infection right foot Diabetic foot 5. Type 2 diabetes mellitus with hyperglycemia 6. Acute kidney injury on chronic kidney disease stage 3 a Diabetic nephropathy 7. Possible peripheral vascular disease 8. Abdominal wall infection panniculitis Plan -patient is clearly volume overloaded. Will start IV diuresis with Lasix. Rule out urinary retention. Nephrology consulted for BOBBY on CKD. -for pulmonary edema IV Lasix will help. 2D echo pending. Cardiology consulted. Cause of respiratory failure with hypoxia is pulmonary edema. Try to wean off fluids continue diuresis. Doubt pneumonia. Pulmonary consult -patient has acute osteomyelitis of the right calcaneum will start broad- spectrum antibiotics also has panniculitis Will start vancomycin and cefepime. She is high-risk for Pseudomonas. Id consult and vascular surgery consult. Will get Dopplers. documented in this encounter Procedure Notes * Marilin Garcia MD - 04/24/2023 9:12 AM CDTAssociated Order(s): EGD [facility] Patient Name: Leeroy Canales Procedure Date: 04/24/2023 9:12 AM Date of : 1990 Admit Type: Inpatient Age: 32 Gender: Female Attending MD: Marilin Garcia M.D. Room: [facility] ENDOSCOPY ROOM [facility] Note Status: Finalized Procedure: Upper GI endoscopy Indications: Iron deficiency anemia, Nausea with vomiting Referring MD: Providers: Marilin Garcia M.D. Medicines: Monitored Anesthesia Care Complications: No immediate complications. Estimated Blood Loss: Estimated blood loss: none. Procedure: The benefits, risks, and alternatives to the procedure and sedation were discussed and informed consent was obtained. The scope was passed under direct vision. The GIF-H190 Upper endoscope was introduced through the mouth, and advanced to the second part of duodenum. The upper GI endoscopy was accomplished without difficulty. The patient tolerated the procedure well. Findings: The examined esophagus was normal. Patchy mild inflammation characterized by erosions and erythema was found in the gastric body and in the gastric antrum. Biopsies were taken with a cold forceps for histology. The first portion of the duodenum and second portion of the duodenum were normal. Impression: - Normal esophagus. - Gastritis. Biopsied. - Normal first portion of the duodenum and second portion of the duodenum. Recommendation: - Perform a flexible sigmoidoscopy today. - Use Protonix (pantoprazole) 40 mg PO BID for 8 weeks. - Perform an H. pylori stool antigen (HpSA) test. Marilin Garcia M.D. Marilin Garcia M.D. 04/24/2023 10:29:13 AM . Number of Addenda: 0 Note Initiated On: 04/24/2023 9:12 AM Recognized by the [employer] [employer] for promoting quality in endoscopy * Marilin Garcia MD - 04/24/2023 9:12 AM CDTAssociated Order(s): FLEXIBLE SIGMOIDOSCOPY [facility] Patient Name: Leeroy Canales Procedure Date: 04/24/2023 9:12 AM Date of : 1990 Admit Type: Inpatient Age: 32 Gender: Female Attending MD: Marilin Garcia M.D. Room: [facility] ENDOSCOPY ROOM [facility] Note Status: Finalized Procedure: Flexible Sigmoidoscopy Indications: Rectal hemorrhage Referring MD: Providers: Marilin Garcia M.D. Medicines: Monitored Anesthesia Care Complications: No immediate complications. Estimated Blood Loss: Estimated blood loss: none. Procedure: The benefits, risks, and alternatives to the procedure and sedation were discussed and informed consent was obtained. The GIF-H190 Upper endoscope was introduced through the anus and advanced to the the sigmoid colon. The flexible sigmoidoscopy was accomplished without difficulty. The patient tolerated the procedure well. The quality of the bowel preparation was inadequate. Findings: An area of mildly congested mucosa was found in the rectum and in the recto-sigmoid colon. Biopsies were taken with a cold forceps for histology. Non-bleeding internal hemorrhoids were found during retroflexion. The hemorrhoids were medium-sized. Impression: - Preparation of the colon was inadequate. - Mildly congested mucosa in the rectum and in the recto-sigmoid colon. Biopsied. - Non-bleeding internal hemorrhoids. This is the likely cause of rectal bleeding. Recommendation: - Return patient to hospital [facility] for ongoing care. - Use hydrocortisone suppository 25 mg 2 per rectum once a day for 7 days. - Begin stool softeners, Colace capsule(s) orally 50 mg BID. - Await pathology results. Marilin Garcia M.D. Marilin Garcia M.D. 04/24/2023 10:29:57 AM . Number of Addenda: 0 Note Initiated On: 04/24/2023 9:12 AM Recognized by the [employer] [employer] for promoting quality in endoscopy documented in this encounter Consult Notes * Renae Navarro LPC - 04/23/2023 4:07 PM CDTAssociated Order(s): CONSULT TO BEHAVIORAL HEALTH [facility] Is [facility] consult complete? Yes [facility] Initial Assessment Date: 04/23/23 Assessment Start time: 1629 Assessment End time: 170 Patient Name: Leeroy Canales Preferred Name: Leeroy Preferred Pronouns: she/her/hers Date of : 1990 Phone #: [phone] (home) Race: Black Or Orientation: Alert and oriented x4 Presenting Problem: Today, patient is a 32 year old, black female who is admitted to the medical floor and has a consult ordered for depressive symptoms. When asked about her depressive symptoms she said, Not really. I just want to get out of this hospital. She does not have a mental health diagnosis. She reports a past suicide attempt in 08/2022 by overdose. She was not hospitalized in a behavioral health unit and has no other behavioral health admissions. Patient lives with a friend. She doesn't take any medication for depression. Patient denies suicidal ideation, denies homicidal ideation and denies hallucinations. Previous mental health treatment: (Inpatient/outpatient, when, where, and how many admissions in past year): None Next appointment with psychiatrist: None Next appointment with therapist/counselor: None Referral source: Hien Rabago MD Contact number: [phone] LETHALITY ASSESSMENT Current suicide ideation: Denied Prior Attempts: Yes When: 08/2022 How: overdose without any behavioral health treatment Suicidal Ideation in the past month? Denies, access the following: Means/access: Denies Protective Factors (Recent): Identifies reasons for living, Responsibility to family/others; livingwith family, and Supportive social network or family Other Protective Factors (Describe): housing, insurance Activating Events (Recent): Denies Self Mutilation: No Violent behavior: Denied Homicidal Ideation: Denied MOOD SYMPTOMS Denies any mood issues Frequency/Time Frame: during consult Sleep: Usually sleeps during the day. How many hours in 24 hour period? Patient is unsure. Appetite: Eating less Time Frame: within the past month No changes PSYCHOTIC SYMPTOMS Delusions: Denies Paranoia: Denies Hallucinations: Denies Insight (into psychotic symptoms): N\A ANXIETY SYMPTOMS Denies TRAUMA Have you or anyone close to you ever witnessed or experienced the following traumatic events?: denies Describe: (include timeline and if seeking treatment currently): NA ABUSE: Physical: denies', Emotional: denies, Neglect: denies, Sexual: denies, and Exploitation: denies Symptoms: Denies MENTAL STATUS EXAM Appearance/hygiene: Appropriate Affect: Normal Speech: Clear Insight: good Thought process: Coherent Judgement: good Behavior: Cooperative Intellectual Functioning: WNL Performs ADL's: No ADL assistance Mother or sister helps her. Reads: Yes Writes: Yes MEDICAL HISTORY Medical Conditions: Past Medical History: Diagnosis Date CHF (congestive heart failure) ([facility]) (HCC) CKD (chronic kidney disease) Diabetes mellitus (HCC) Hx of AKA (above knee amputation) ([facility]) ([facility]) Left Hypertension Assistive Medical Devices: wheelchair PCP: Cherise Patrick PA Last PCP Visit: one month ago Allergies No Known Allergies Medications (include dosage and frequency): Patient on Medical floor Current Facility-Administered Medications Medication Dose Route Frequency Provider Last Rate Last Admin acetaminophen (TYLENOL) tablet 650 mg 650 mg oral Q4H PRN Amilcar Hancock MD buPROPion (WELLBUTRIN) tablet 50 mg 50 mg oral BID Hien Rabago MD 50 mg at 04/21/23 2226 sodium chloride 0.9% flush 0.5-20 mL 0.5-20 mL intra-catheter Q8H [facility] Amilcar Hancock MD 10 mL at04/23/23 1557 And sodium chloride 0.9% flush 0.5-20 mL 0.5-20 mL intra-catheter PRN Amilcar Hancock MD And Carrier Fluids for Secondary Infusion - 0.9% Sodium Chloride 30 mL intravenous PRN Amilcar Hancock MD 30 mL at 04/22/23 2054 Carrier Fluids for Secondary Infusion - 0.9% Sodium Chloride 30 mL intravenous PRN Hien Rabago MD cefTRIAXone (ROCEPHIN) 2,000 mg/20 mL in sterile water (premix) 2,000 mg 2,000 mg intravenous Q24H Dante Fitzgerald MD 2,000 mg at 04/23/23 0936 DAPTOmycin (CUBICIN) 50 mg/mL sodium chloride 0.9% 700 mg 700 mg intravenous Q24H Amilcar Hancock MD 700 mg at 04/22/23 1743 dextrose (GLUTOSE) 40 % gel 15 g 15 g oral Q15 Min PRN Amilcar Hancock MD 15 g at 04/22/23 1155 Or dextrose (D10W) 10% bolus 250 mL 250 mL intravenous Q15 Min PRN Amilcar Hancock MD ergocalciferol (VITAMIN D) capsule 50,000 Units 50,000 Units oral Weekly Golden Kidd MD 50,000 Units at 04/17/23 1437 folic acid (FOLVITE) tablet 1 mg 1 mg oral Daily Hien Rabago MD 1 mg at 04/22/23 0916 furosemide (LASIX) 10 mg/mL injection 80 mg 80 mg intravenous Q8H [facility] Golden Kidd MD 80 mg at04/23/23 1300 glucagon injection 1 mg 1 mg intramuscular Q30 Min PRN Amilcar Hancock MD [Held by Provider] heparin 5,000 unit/mL injection 7,500 Units 7,500 Units subcutaneous Q8H [facility] Amilcar Hancock MD 7,500 Units at 04/22/23 1520 HYDROmorphone (DILAUDID) injection 0.5 mg 0.5 mg intravenous Q4H PRN Hien Rabago MD 0.5 mgat 04/18/23 1818 insulin lispro (HumaLOG, ADMELOG) 100 unit/mL injection 0-4 Units 0-4 Units subcutaneous Nightly Amilcar Hancock MD insulin lispro (HumaLOG, ADMELOG) 100 unit/mL injection 0-5 Units 0-5 Units subcutaneous TID with meals Amilcar Hancock MD ipratropium-albuteroL (DUO-NEB) 0.5-2.5 mg/3 mL nebulizer solution 3 mL 3 mL nebulization Q4H PRN (RT) Darell Paniagua MD 3 mL at 04/22/23 0305 metroNIDAZOLE (FLAGYL) tablet 500 mg 500 mg oral TID Dante Stubbs MD 500 mg at 04/22/23 2043 miconazole 2 % powder topical BID Willie Castro MD Given at 04/23/23 0936 ondansetron ODT (ZOFRAN-ODT) disintegrating tablet 4 mg 4 mg oral Q6H PRN Amilcar Hancock MD Or ondansetron (ZOFRAN) injection 4 mg 4 mg intravenous Q6H PRN Amilcar Hancock MD 4 mg at 04/22/23 0730 sodium chloride (OCEAN) 0.65 % nasal spray 1 spray 1 spray each nostril Q2H PRN Darell Paniagua MD sodium chloride 0.9% flush 5-20 mL 5-20 mL intra-catheter PRN Hien Rabago MD sodium chloride 0.9% flush 5-20 mL 5-20 mL intra-catheter PRN Dante Stubbs MD spironolactone (ALDACTONE) tablet 50 mg 50 mg oral BID DIURETIC Golden Kidd MD 50 mg at 04/23/23 1556 thiamine (VITAMIN B-1) tablet 50 mg 50 mg oral Daily Hien Rabago MD 50 mg at 04/22/23 0916 Medication Compliant: Yes Notes: N/A Pharmacy: [facility] PSYCHOSOCIAL: (Describe: life situation, highest level of educations, quaker affiliation, family history of mental illness/substance abuse, i.e.) Leeroy Canales is a 32 y.o. Black Or female who was born and raised in [place], [place]. Patient's gender assigned at was female and currently identifies as a female. Patient prefers she/her/hers pronouns. Patient currently resides in an apartment. Patient currently resides with mother. Patient has 7 siblings. Patient has no children. Patient completed 11 years of school. Patient is unemployed. Patient states her voodoo preference is no preference. Patient denies any family history of mental illness. Patient denies any family history of suicide attempts/ by suicide. Patient denies any family history of substance use. UDS not collected at time of assessment. Al cohol level was not collected upon admission to ER. Smoking Status: Denies Alcohol Use: Denies Illegal Drug Use: Denies Abuse of prescription drug(s): Denies Legal issues: Denies Serve in : No Benefits: No DFS/DHSS involvement: No Guardian: No State appointed guardian: No Mental Health POA/DPOA: No/Denies POA: No/Denies Financial stressors:Denies CASE SUMMARY/ADDITIONAL COMMENTS: Patient reports that she is not depressed or anxious. She has been sick.. Patient currently denies suicidal thoughts. Patient denies homicidal thoughts. Patient denies auditory or visual hallucinations. Patient denies delusions or paranoia. Med Compliance: Patient denies any current prescribed psychotropic medications. Patient does not have any outpatient providers for psychiatric treatment. Patient denies alcohol use. Patient denies substance use. /DO Willie Noyola and [facility] discussed patient disposition. Based on the clinical presentation of Patient reporting she is not depressed or anxious. She has been sick.. Patient currently denies suicidal thoughts. , both agree that patient harman s not meet criteria for inpatient psychiatric admission. Patient acknowledges her understanding of the plan of care without any questions at this time. There are no affidavits scanned into the chart. DISPOSITION: [facility] will provide outpatient resources including [facility], [place] and [facility]. RECOMMENDATIONS AND PLAN OF CARE: ~AVS has been completed on patient. ~No further intervention needed from Behavioral Health Services at this time, we will sign off on patient. Please contact [facility] for any further needs. [phone]. CARE PLAN WHILE REMAINING IN THE HOSPITAL Patient Strengths: Insurance, Knowledge of medication/diagnosis, Stable housing, Supportive relationships (family, friends, peers), and Stable home environment Patient Coping Mechanisms: Talking with friends/family Patient Triggers: Physical illness Distractions and things that may help: Allow patient to call family/friend if appropriate and does not cause issues, Be specific on time frames and follow them, and Give options when possible What staff can do proactively if the need arises: For Depression: Make time to listen to patient, Discourage sleeping during the day, and Encourage completion of ADL's For Anxiety: Talk calmly with patient, Deep breathing with them: 3 seconds in, 3 seconds out, Grounding technique 5-4-3-2-1 : 5 things you can see, 4 things you can feel, 3 things you can hear, 2 things you can smell, 1 thing you can taste, and Inform patient of anticipated testing, treatments, therapies, etc. as soon as possible ADDITIONAL ASSESSMENTS: [place] Suicide Severity Rating Scale (Recent Screener) [place] Suicide Severity Rating Scale (Recent Screener) 1. In the past month, have you wished you were or that you could go to sleep and not wake up?:No 2. In the past month, have you actually had any thoughts of killing yourself?: No 6. Have you ever done anything, started to do anything, or prepared to do anything to end your life?: Yes 6b. Was this within the past three months?: (08/2023 overdosed.) Suicide Risk Level: Moderate-Low Renae Navarro LPC Behavioral Health [facility] Telehealth Patient? Yes Telehealth Patient? Yes This was a telepsych/telemedicine visit with Leeroy Canales which took place via real-time video connection with avolution. During the visit, I was located at My residence, and the patient waslocated at [facility] in the [facility]. My visit with the patient started at 1629 and ended at 1702. After being given an opportunity to ask questions about and discuss this type of visit, the patientand/or guardian verbally consented to proceeding with the video visit. The patient and/or guardian understands that they may be billed and/or responsible for any applicable copayments. The patient and/or guardian agrees to participate in a psychiatric assessment service via Interactive Video Conferencing with a Qualified Mental Health Professional. Patient and/or guardian understands that their privacy and confidentiality will be protected at all times and all reasonable and appropriate measures will be made to eliminate all confidentiality risks. Patient and/or guardian understands that the services they receive are part of the patient's hospital record. Patient and/or guardian is aware that the [facility] and Hospital Staff will have access to the patient's relevant medical information including psychiatric and/or psychological information, alcohol and/or drug use and mental health records.Patient and/or guardian understands this consent is part of the patient's medical record. * Radha Narvaez, MILLIE - 04/23/2023 3:43 PM CDTAssociated Order(s): IP CONSULT TO NUTRITION SERVICES Nutrition Assessment Reason for Assessment: Initial Nutrition Assessment and Consult/Referral Encounter Date: 04/23/23 4:19 PM Patient is a 32 y.o. female. Admit Dx: Shortness of breath [R06.02] Respiratory insufficiency [R06.89] Abdominal pannus [E65] Chronic wound infection of abdomen, initial encounter [S31.109A, L08.9] Heel ulceration, right, with unspecified severity (HCC) [L97.419] Diabetes mellitus with coincident hypertension (HCC) [E11.9, I10] Acute renal failure superimposed on chronic kidney disease, unspecified CKD stage, unspecified acute renal failure type (HCC) [N17.9, N18.9] Acute on chronic congestive heart failure, unspecified heart failure type (HCC) [I50.9]. Admitted on 04/15/2023, current LOS is 8 days. Nutrition Diagnosis 1: Increased nutrient needs (protein) Related to: Wounds Evidenced by: Physicalfinding, Patient interview [facility] Malnutrition Assessment: Date of completion (or initial diagnosis): pending Malnutrition work-up still pending and will be addressed further upon attempted F/U. Nutrition-focused physical exam (NFPE) findings: ASSESSMENT AND INTERVENTION/RECOMMENDATIONS: Pt is a 32 y.o. female from home with PMHx of T2DM, HTN and left AKA in December admitted for No Principal Problem: There is no principal problem currently on the Problem List. Please update the Problem List and refresh.. Acknowledging consult for malnutrition assessment and need for supplements. Initially following for LOS x8. Pt refusing most care and recommendation of amputation. PO intake inconsistent. Pt expressed she has an appetite but does not like some of the food she receives. Lives with her mother who makes all the meals. Eats 2 meals per day at home with minimal snacking. Checks BG once a day at night time. Recently started Trulicity. Significant weight change noted per EMR. Unsure of accuracy. Pt is unsure of any weight changes. Pt eating upon visit. NFPE to be performed at follow up. Ordered Ensure HP BID to promote wound healing. Provides additional 160 kcals and 16 g protein per serving. Encouraged PO intake to promote wound healing. 100% of lunch consumed today. Noteddiet order change to regular diet from 4 CHO/meal. BG controlled at this time - monitor. Last BM: per pt. Dc pending hospital course. Will continue to monitor. EDUCATION NEEDED/COMPLETED? N/A GOALS / MONITORING: Goals: Oral intake to meet 75% estimated nutritional needs by next assessment, Promote wound healing Interventions: Medical food supplement, Encouragement, Initial assessment Monitoring and Evaluation: Appetite, Blood glucoses, Discharge plans, PO intake, Plan of care, Labs, I/O, Wound healing, Supplement tolerance Anthropometrics: Wt Readings from Last 10 Encounters: 04/21/23 (!) 161.9 kg (357 lb) 02/20/23 109 kg (240 lb 4.8 oz) Anthropometrics Weight: (!) 161.9 kg (357 lb) Admission Weight : 144.2 kg Weight Change: 0.90 kg (2.00 lbs) IBW/kg (Calculated) : 61.2 kg Height: 170.2 cm (5' 7 ) Weight in (lb) to have BMI = 25: 159.3 BMI (Calculated): 55.9 BMI Classification: BMI > or equal to 40.0 Class III Estimated Nutrition Needs: Calories Calculated Energy Needs Using Equations Weight Used for Equation Calculations (RD Determined): 61.6 kg (135 lb 12.9 oz) Weight: (!) 161.9 kg (357 lb) Height: 170.2 cm (5' 7 ) Halina Lazar Equation (Overweight or Obese Patients): 1369 Equation Chosen to Use by RD: Mariela Guzman Activity Factor: 1.2 Total Energy Needs: 1642.8 kcal Total Energy Needs + Fever Factor: 1642.8 Protein Estimated Protein Needs Type of Weight Used for Estimated Protein : [place] Protein Needs Based on g/k.2 (18% of total kcals) Total Protein Estimated Needs (gm): 73.44 Fluid Estimated Fluid Needs Type of Weight Used for Estimated Fluid Needs: [place] Fluid Needs Based on : 25 ml/kg Total Fluid Estimated Needs: 1530 Medications: 04/23/23 Current Facility-Administered Medications: acetaminophen buPROPion Saline lock IV AND sodium chloride 0.9% AND sodium chloride 0.9% AND sodium chloride 0.9% sodium chloride 0.9% cefTRIAXone DAPTOmycin dextrose OR dextrose ergocalciferol folic acid furosemide glucagon [Held by Provider] heparin HYDROmorphone insulin lispro insulin lispro ipratropium-albuteroL metroNIDAZOLE miconazole ondansetron ODT OR ondansetron sodium chloride sodium chloride 0.9% sodium chloride 0.9% spironolactone thiamine Lab Review: 04/23/23: HgbA1c 6.5 (date: 6/14/23), Creatinine 1.30 (H), Calcium 8.3 (L), Alk Phos 241 (H) Past Medical History: Diagnosis Date CHF (congestive heart failure) ([facility]) (HCC) CKD (chronic kidney disease) Diabetes mellitus (HCC) Hx of AKA (above knee amputation) ([facility]) (HCC) Left Hypertension Past Surgical History: Procedure Laterality Date ABOVE KNEE LEG AMPUTATION Left Dietary Orders (From admission, onward) Start Ordered 04/23/23 1700 Oral Nutrition Supplements Select Supplement: Ensure High Protein - Chocolate; Quantity (# of cans): 1 can With Breakfast and Dinner Comments: Please rotate flavors. Question Answer Comment Select Supplement: Ensure High Protein - Chocolate Quantity (# of cans): 1 can 04/23/23 1612 04/23/23 1554 Adult Diet Regular Diet effective now Question: (MHB/MHE) Diet type Answer: Regular 04/23/23 1553 04/15/23 2100 Bedtime snack At bedtime Comments: If bedtime BG is less than 100mg/dl, give patient a 15 gram carbohydrate snack. 04/15/23 1849 Diet Instructions Continue to follow a consistent carbohydrate diet upon discharge. Avoid concentrated sweets such ascookies, cake, candy and ice cream. Also, avoid sugar-sweetened beverages such as lemonade, sweet tea, regular soda, juice and Gatorade. Eat 60g of carbohydrates at each meal. Eat 3 meals per day andtry to eat at consistent times. If interested, ask your doctor for referral to outpatient nutritioncounseling. Call [facility] Dietitian's office at [phone] for questions about your diet. Additional resources available from the [place] [employer] can be found at [email or web address].[email or web address] Nutrition Follow-Up : 04/25/23 (PO/supp intake) Radha Narvaez RD Cosigned by Kavita Eng RD at 04/23/2023 4:43 PM CDT * Marilin Garcia MD - 04/23/2023 12:41 PM CDTAssociated Order(s): IP CONSULT TO GASTROENTEROLOGY GI Consultation Patient's Primary Care Physician: Cherise Patrick PA Name: Leeroy Canales Age: 32 y.o. Sex: female Reason for Consult: Rectal bleeding Requesting physician: Dr. Lisset Noyola HPI: She is a 32-year-old woman with a past medical history significant for hypertension, type 2 diabetes mellitus, congestive heart failure, left above- knee amputation, and multiple skin ulcers who was referred to our service for evaluation of rectal bleeding. She presented to the emergency room with difficulty with breathing and is being managed for acute congestive heart failure. She was observed in the last day to have bright red blood per rectum. This was observed to be brisk overnight and nuclear medicine bleeding scan was obtained but this was negative. Hemoglobin has been stable between 8 - 9 grams/dL, but was 12.1 grams/dL in February. There is evidence of iron-deficiency. No melena or abdominal pain, but she reports recurrent vomiting. Past Medical History: Diagnosis Date CHF (congestive heart failure) (CMS/HCC) (HCC) CKD (chronic kidney disease) Diabetes mellitus (HCC) Hx of AKA (above knee amputation) (CMS/HCC) (HCC) Left Hypertension Past Surgical History: Procedure Laterality Date ABOVE KNEE LEG AMPUTATION Left LABS Recent Labs Lab Units 04/23/23 1051 04/23/23 0923 04/22/23 0625 WBC K/cumm 16.9* 16.5* 17.6* HEMOGLOBIN g/dL 7.9* 7.8* 7.9* HEMATOCRIT % 25.9* 25.4* 25.8* PLATELETS K/cumm 488* 461* 516* NEUTROS PCT % 78.8 77.8 79.2 LYMPHS PCT % 11.3 11.4 9.9 MONOS PCT % 6.8 7.8 7.1 EOS PCT % 1.9 1.7 2.3 Recent Labs Lab Units 04/23/23 1207 04/23/23 0923 04/22/23 1922 04/22/23 0735 04/22/23 0625 04/21/23 1556 04/21/23 1054 SODIUM mmol/L -- 143 -- -- 144 -- 141 POTASSIUM PLASMA mmol/L -- 3.3 -- -- 3.5 -- 3.6 CHLORIDE mmol/L -- 106 -- -- 107 -- 107 CO2 mmol/L -- 29 -- -- 28 -- 29 ANIONGAP mmol/L -- 8 -- -- 9 -- 5 GLUCOSE mg/dL -- 106 -- -- 71 -- 80 POC GLUCOSE MONITOR mg/dL 131 -- 123 < > -- < > -- BUN SERUM mg/dL -- 16 -- -- 19 -- 20 CREATININE mg/dL -- 1.30* -- -- 1.40* -- 1.40* CALCIUM mg/dL -- 8.3* -- -- 8.3* -- 8.2* ALBUMIN g/dL -- 2.0* -- -- 1.9* -- 1.3* ALK PHOS Units/L -- 241* -- -- 243* -- 288* ALT Units/L -- 11 -- -- 12 -- 13 AST Units/L -- 13 -- -- 12 -- 11 BILIRUBIN TOTAL mg/dL -- 0.4 -- -- 0.3 -- 0.2 < > = values in this interval not displayed. No results found for: LIPASE No results found for: AMYLASE Medications Prior to Admission Medication Sig Dispense Refill Last Dose amLODIPine (NORVASC) 10 mg tablet Take 1 tablet (10 mg total) by mouth daily 04/14/2023 carvediloL (COREG) 12.5 mg tablet Take 1 tablet (12.5 mg total) by mouth 2 (two) times a day with meals 04/14/2023 dulaglutide (TRULICITY) 0.75 mg/0.5 mL pen injector Inject 0.5 mL (0.75 mg total) under the skin every 7 days Past Week furosemide (LASIX) 40 mg tablet Take 1 tablet (40 mg total) by mouth daily 04/14/2023 loperamide (IMODIUM) 2 mg capsule Take 1 capsule (2 mg total) by mouth 4 (four) times a day as needed for diarrhea 12 capsule 0 More than a month losartan (COZAAR) 25 mg tablet Take 1 tablet (25 mg total) by mouth daily 04/14/2023 potassium chloride ER 10 mEq CR tablet Take 2 tablet/capsule (20 mEq total) by mouth daily 04/14/2023 MEDICATIONS FOR CURRENT ENCOUNTER: SCHEDULED MEDICATIONS: Current Facility-Administered Medications: acetaminophen (TYLENOL) tablet 650 mg, 650 mg, oral, Q4H PRN, Amilcar Hancock MD buPROPion (WELLBUTRIN) tablet 50 mg, 50 mg, oral, BID, Hien Rabago MD, 50 mg at 04/21/23 2226 Saline lock IV, , , Once AND sodium chloride 0.9% flush 0.5-20 mL, 0.5-20 mL, intra-catheter, Q8H ERICK, 10 mL at 04/22/23 1520 AND sodium chloride 0.9% flush 0.5-20 mL, 0.5-20 mL, intra-catheter, PRN AND Carrier Fluids for Secondary Infusion - 0.9% Sodium Chloride, 30 mL, intravenous, PRN, Amilcar Hancock MD, 30 mL at 04/22/232053 Carrier Fluids for Secondary Infusion - 0.9% Sodium Chloride, 30 mL, intravenous, PRN, Hien Rabago MD cefTRIAXone (ROCEPHIN) 2,000 mg/20 mL in sterile water (premix) 2,000 mg, 2,000 mg, intravenous, Q24H [facility], Dante Stubbs MD, 2,000 mg at 04/23/23 0936 DAPTOmycin (CUBICIN) 50 mg/mL sodium chloride 0.9% 700 mg, 700 mg, intravenous, Q24H, Amilcar Hancock MD, 700 mg at 04/22/23 1743 dextrose (GLUTOSE) 40 % gel 15 g, 15 g, oral, Q15 Min PRN, 15 g at 04/22/23 1155 OR dextrose (D10W) 10% bolus 250 mL, 250 mL, intravenous, Q15 Min PRN, Amilcar Hancock MD ergocalciferol (VITAMIN D) capsule 50,000 Units, 50,000 Units, oral, Weekly, Golden Kidd MD, 50,000 Units at 04/17/23 1437 folic acid (FOLVITE) tablet 1 mg, 1 mg, oral, Daily, Hien Rabago MD, 1 mg at 04/22/23 0916 furosemide (LASIX) 10 mg/mL injection 80 mg, 80 mg, intravenous, Q8H ERICK, Golden Kidd MD, 80 mg at 04/22/23 204 glucagon injection 1 mg, 1 mg, intramuscular, Q30 Min PRN, Amilcar Hancock MD [Held by Provider] heparin 5,000 unit/mL injection 7,500 Units, 7,500 Units, subcutaneous, Q8H ERICK,Amilcar Hancock MD, 7,500 Units at 04/22/23 1520 HYDROmorphone (DILAUDID) injection 0.5 mg, 0.5 mg, intravenous, Q4H PRN, Hien Rabago MD, 0.5 mg at 04/18/23 1818 insulin lispro (HumaLOG, ADMELOG) 100 unit/mL injection 0-4 Units, 0-4 Units, subcutaneous, Nightly, Amilcar Hancock MD insulin lispro (HumaLOG, ADMELOG) 100 unit/mL injection 0-5 Units, 0-5 Units, subcutaneous, TID with meals, Amilcar Hancock MD ipratropium-albuteroL (DUO-NEB) 0.5-2.5 mg/3 mL nebulizer solution 3 mL, 3 mL, nebulization, Q4H PRN (RT), Darell Paniagua MD, 3 mL at 04/22/23 0305 metroNIDAZOLE (FLAGYL) tablet 500 mg, 500 mg, oral, TID, Dante Stubbs MD, 500 mg at 04/22/23 204 miconazole 2 % powder, , topical, BID, Willie Castro MD, Given at 04/23/23 0936 ondansetron ODT (ZOFRAN-ODT) disintegrating tablet 4 mg, 4 mg, oral, Q6H PRN OR ondansetron (ZOFRAN) injection 4 mg, 4 mg, intravenous, Q6H PRN, Amilcar Hancock MD, 4 mg at 04/22/23 0730 sodium chloride (OCEAN) 0.65 % nasal spray 1 spray, 1 spray, each nostril, Q2H PRN, Darell Paniagua MD sodium chloride 0.9% flush 5-20 mL, 5-20 mL, intra-catheter, PRN, Hien Rabago MD sodium chloride 0.9% flush 5-20 mL, 5-20 mL, intra-catheter, PRN, Dante Stubbs MD spironolactone (ALDACTONE) tablet 50 mg, 50 mg, oral, BID DIURETIC, Golden Kidd MD, 50 mg at 04/23/23 0936 thiamine (VITAMIN B-1) tablet 50 mg, 50 mg, oral, Daily, Hien Rabago MD, 50 mg at 916 acetaminophen Saline lock IV AND sodium chloride 0.9% AND sodium chloride 0.9% AND sodium chloride 0.9% sodium chloride 0.9% dextrose OR dextrose glucagon HYDROmorphone ipratropium-albuteroL ondansetron ODT OR ondansetron sodium chloride sodium chloride 0.9% sodium chloride 0.9% History reviewed. No pertinent family history. Social History Tobacco Use Smoking status: Never Smokeless tobacco: Never Substance and Sexual Activity Drug use: Never Sexual activity: None Alcohol Use: Not on file No Known Allergies Review of Systems Twelve point review of systems is negative except as per HPI Exam Vitals: 04/23/23 0211 04/23/23 0315 04/23/23 0715 04/23/23 1100 BP: 152/81 161/82 165/80 BP Location: Left arm Left arm Left arm Patient Position: HOB 30 degrees HOB 30 degrees Pulse: 102 95 76 Resp: 18 Temp: 37.8 ??C (100.1 ??F) 37.5 ??C (99.5 ??F) 36.5 ??C (97.7 ??F) TempSrc: Oral Oral Oral SpO2: 93% 94% 93% 96% Weight: Height: Objective General appearance: appears chronically ill, alert, cooperative, no distress Eyes: PEERLA, no icterus HEENT: oral mucosa is moist. No ulcers Neck: supple, no jvd Skin: no rash or lesions Lungs: breath sounds normal and symmetric; no rales or wheezes Heart: regular rhythm, normal S1 and S2, without murmurs, gallops or rubs Abdomen: soft without mass, non-tender and non distended, with normal bowel sounds Back: no asymmetry or tenderness : No CVA tenderness Extremities: skin ulcers Neurological: Speech is fluent. Assessment and plan 1. Rectal bleeding - she was observed to have bright red blood per rectum. Nuclear medicine bleeding scan is negative. Differentials include hemorrhoidal bleeding in this young patient. Hemoglobin has been stable but lower than baseline. This is evidence of iron-deficiency. - we will perform a flexible sigmoidoscopy for evaluation of lower GI bleeding. Given iron-deficiency anemia,and reports of vomiting, upper endoscopy will also be performed. - monitor hemoglobin. Maintain above 7-8 grams/dL. - keep on a clear liquid diet. Marilin Garcia MD * Barbara Mccollum NP - 04/17/2023 11:15 AM CDT Trans[facility] Consult Reason for Consult: Heart Failure Subjective Patient is a 32 y.o. female with chief complaint of shortness of breath x 1 month when laying down.Home Health came in for her wound care and noticed she was hypoxic and sent her to the hospital. Medications and compliance: Patient has no problems paying for her medications and her mom picks them up from the pharmacy. Payor: Payor: [employer] [facility] [employer] / Plan: [employer] [facility] [employer] / Product Type: MEDICAID RISK OTHER / Heart failure topics discussed with patient: Provided patient with handouts and education on daily weights (same time of the day, wearing the same amount of clothes and after urinating), limiting fluid intake to no more than 64oz of all fluids per day, low sodium diet (foods to eat and foods to avoid handout), and the heart failure action plan. Instructed patient to report a weight gain of 2 lbs in 1 day or 3-5 lbs in 1 week. Provided TCC contact information and encouraged them to contact Customer Experience Leader or PCP early with any changes in their symptoms. Patient does not do daily weights. She doesnot have a scale and cannot stand, due to a left AKA in December 2022. Patient's brother lifts and transfers her to her wheelchair. She does not follow a low sodium diet and her main meals are ramen noodles or lunch meat on sandwiches. She does not eat breakfast and usually wakes up around 3:00 pm and then goes to bed around 4:00 am. Patient does not limit her fluids and drinks mostly water with sugar free koolaide packets. Patient lives with her mom and brother. Her mother is her primary caregiver. Transitional [facility] Clinic explained and offered: Patient declined the TCC, but did accept telephonic follow up after discharge. Patient's preferred phone number: [phone] Tobacco Use: Low Risk (04/16/2023) Patient History Smoking Tobacco Use: Never Smokeless Tobacco Use: Never Passive Exposure: Not on file Alcohol Use: Not on file * Dante Stubbs MD - 04/16/2023 10:14 AM CDTAssociated Order(s): IP CONSULT TO INFECTIOUS DISEASES Infectious Disease Consult Requesting physician: Dr. 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 Patient was also noted to have foul-smelling odor emanating from right foot with a plantar large necrotic eschar. X-ray done in the emergency room shows possible early osteomyelitis of the calcaneal bone. I was requested to see her for further evaluation. Patient denies any fever or chills. Patient reports that her blood sugars have been running high lately. No nausea or vomiting. No diarrhea or dysuria Past Medical History: Diagnosis Date CHF (congestive heart failure) (CMS/HCC) (HCC) CKD (chronic kidney disease) Diabetes mellitus (HCC) Hx of AKA (above knee amputation) (CMS/HCC) (HCC) Left Hypertension Past Surgical History: Procedure Laterality Date ABOVE KNEE LEG AMPUTATION Left HOME MEDICATIONS : amLODIPine (NORVASC) 10 mg tablet carvediloL (COREG) 12.5 mg tablet dulaglutide (TRULICITY) 0.75 mg/0.5 mL pen injector furosemide (LASIX) 40 mg tablet loperamide (IMODIUM) 2 mg capsule losartan (COZAAR) 25 mg tablet potassium chloride ER 10 mEq CR tablet Current Facility-Administered Medications Ordered in Epic Medication Dose Route Frequency Provider Last Rate Last Admin acetaminophen (TYLENOL) tablet 650 mg 650 mg oral Q4H PRN Amilcar Hancock MD sodium chloride 0.9% flush 0.5-20 mL 0.5-20 mL intra-catheter Q8H Amilcar Vee MD 10 mL at04/15/23 2144 And sodium chloride 0.9% flush 0.5-20 mL 0.5-20 mL intra-catheter PRN Amilcar Hancock MD And Carrier Fluids for Secondary Infusion - 0.9% Sodium Chloride 30 mL intravenous PRN Amilcar Hancock MD cefepime (MAXIPIME) 1,000 mg in sodium chloride 0.9% 100 mL IVPB 1,000 mg intravenous Q8H Amilcar Vee MD 200 mL/hr at 04/16/23 0638 1,000 mg at 04/16/23 0638 DAPTOmycin (CUBICIN) 50 mg/mL sodium chloride 0.9% 700 mg 700 mg intravenous Q24H Amilcar Hancock MD dextrose (GLUTOSE) 40 % gel 15 g 15 g oral Q15 Min PRN Amilcar Hancock MD Or dextrose (D10W) 10% bolus 250 mL 250 mL intravenous Q15 Min PRN Amilcar Hancock MD furosemide (LASIX) 10 mg/mL injection 80 mg 80 mg intravenous BID DIURETIC Amilcar Hancock MD 80 mg at 04/16/23 0804 glucagon injection 1 mg 1 mg intramuscular Q30 Min PRN Amilcar Hancock MD heparin 5,000 unit/mL injection 7,500 Units 7,500 Units subcutaneous Q8H ERICK Amilcar Hancock MD 7,500 Units at 04/16/23 0638 insulin glargine (LANTUS, SEMGLEE) 100 unit/mL injection 22 Units 0.15 Units/kg subcutaneous Nightly Amilcar Hancock MD 22 Units at 04/15/23 2144 insulin lispro (HumaLOG, ADMELOG) 100 unit/mL injection 0-4 Units 0-4 Units subcutaneous Nightly Amilcar Hancock MD insulin lispro (HumaLOG, ADMELOG) 100 unit/mL injection 0-5 Units 0-5 Units subcutaneous TID with meals Amilcar Hancock MD insulin lispro (HumaLOG, ADMELOG) 100 unit/mL injection 7 Units 0.05 Units/kg subcutaneous TID withmeals Amilcar Hancock MD 7 Units at 04/16/23 0804 ipratropium-albuteroL (DUO-NEB) 0.5-2.5 mg/3 mL nebulizer solution 3 mL 3 mL nebulization Q6H [place]awake (RT) Darell Paniagua MD ondansetron ODT (ZOFRAN-ODT) disintegrating tablet 4 mg 4 mg oral Q6H PRN Amilcar Hancock MD Or ondansetron (ZOFRAN) injection 4 mg 4 mg intravenous Q6H PRN Amilcar Hancock MD sodium chloride (OCEAN) 0.65 % nasal spray 1 spray 1 spray each nostril Q2H PRN Darell Paniagua MD No current [facility]-ordered outpatient medications on file. Anti-infectives (From admission, onward) Start Dose/Rate Route Frequency Ordered Stop 04/16/23 1500 DAPTOmycin (CUBICIN) 50 mg/mL sodium chloride 0.9% 700 mg 700 mg 420 mL/hr over 2 Minutes intravenous Every 24 hours 04/15/23202504/15/23 2100 cefepime (MAXIPIME) 1,000 mg in sodium chloride 0.9% 100 mL IVPB 1,000 mg 200 mL/hr over 30 Minutes intravenous Every 8 hours scheduled 04/15/23 1849 Immunosuppressive Medications: Immunosuppressive Medications (From admission, onward) None Active LDAs: Peripheral IV 04/15/23 20 G Right Antecubital (Active) Site Assessment Clean and dry 04/16/23 0940 IV Line Status Single Flushes easily 04/16/23 0940 Dressing Type Transparent 04/16/23 0940 Dressing Status Clean, dry, intact 04/16/23 0940 Reason Not Rotated Not clinically indicated 04/15/23 2300 Number of days: 1 Peripheral IV 04/15/23 20 G Posterior;Right Hand (Active) Site Assessment Clean and dry 04/16/23 0940 IV Line Status Single Flushes easily 04/16/23 0940 Dressing Type Transparent 04/16/23 0940 Dressing Status Clean, dry, intact 04/16/23 0940 Reason Not Rotated Not clinically indicated 04/15/23 2300 Number of days: 1 Urethral Catheter (Active) Site Assessment Clean;Skin intact 04/16/23 0440 Catheter Status Open to gravity drainage 04/16/23 0440 Urine Collection Container Drainage bag with urometer 04/16/23 0440 Securement Method StatLock 04/16/23 0440 Fortune Necessity Reason Reviewed with Care Team I&O critical for hourly patient management or hemodynamic instability 04/16/23 0440 Urinary Catheter Reviewed With Care Team/Physician 04/16/23 0440 Number of days: 0 No Known Allergies Social History Tobacco Use Smoking status: Never Smokeless tobacco: Never Substance and Sexual Activity Drug use: Never Sexual activity: None Alcohol Use: Not on file Family history: Father has history of diabetes Paternal grandparents both had diabetes. Mother has history of hypertension Review of Systems: Review of Systems Constitutional: Negative for fever and weight loss. HENT: Negative for ear pain and hearing loss. Eyes: Negative for blurred vision. Respiratory: Negative for cough and shortness of breath. Cardiovascular: Negative for chest pain and palpitations. Gastrointestinal: Negative for abdominal pain and diarrhea. Genitourinary: Negative for dysuria and hematuria. Musculoskeletal: Negative for joint pain and myalgias. Neurological: Negative for seizures. Endo/Heme/Allergies: Negative for polydipsia. Does not bruise/bleed easily. Psychiatric/Behavioral: Negative for depression. Skin: Right foot plantar ulcer with necrosis and foul odor. Right abdominal fold superficial skin pressure related ulcers Objective Vitals: 24hr Min/Max: Temp Min: 36.3 ??C (97.4 ??F) Max: 36.7 ??C (98.1 ??F) Pulse Min: 72 Max: 80 BP Min: 112/71 Max: 158/80 Resp Min: 13 Max: 22 SpO2 Min: 85 % Max: 98 % Most Recent : Vitals: 04/16/23 0835 BP: Pulse: 75 Resp: Temp: SpO2: I/O last 2 completed shifts: In: 100 [P.O.:100] Out: 500 [Urine:500] No intake/output data recorded. Physical Exam: General: Well appearing, well nourished, in no distress. Oriented x 3, normal mood and affect . Ambulating without difficulty. Skin: Good turgor, no rash, unusual bruising or prominent lesions HEENT: Head: Normocephalic and atraumatic. Eyes: Sclera non-icteric, EOM intact and PERRL Mouth: Mucous membranes moist, no mucosal lesions. Teeth/Gums: No obvious caries or periodontal disease. Pharynx: Mucosa non-inflamed, no tonsillar hypertrophy or exudate Neck: Supple, no adenopathy. Heart: No cardiomegaly or thrills; regular rate and rhythm, no murmur or gallop Lungs: Clear to auscultation and percussion Abdomen: Bowel sounds normal, no tenderness, organomegaly, masses, or hernia. Right lower quadrant area abdominal fold superficial skin ulceration with minimal surrounding erythema. No dayo necrosis. Mid area of ulceration superficial slough with no drainage. Extremities: Chronic lymphedema of the right lower extremity. Right plantar 5 x 5 cm round eschar with signs of necrosis. Soft to touch. Foul-smelling. No dayo drainage. Some surrounding erythema. Left foot peripheral pulses are difficult to palpate Musculoskeletal: No effusions, intact range of motion. Neurologic: CN 2-12 normal. Sensation to pain, touch. DTRs normal in upper and lower extremities. No pathologic reflexes. Psychiatric: Oriented X3, intact recent and remote memory, judgment and insight, normal mood and affect. Lymph Node: normal Lab/Radiology/Diagnostic Review: Chest x-ray: Pulmonary edema Right foot x-ray three-view: Soft tissue ulceration of the hind foot with underlying soft tissue gas. Diffuse soft tissue swelling of the foot suspected mild osseous cortical erosion involving the plantar aspect of the calcaneus when compared to prior exam. Concerning for acute osteomyelitis. Blood cultures x2 set day 1 no growth. Superficial wound culture from right heel showing polymicrobial organism Superficial wound culture from right lower quadrant showing Gram-positive bacilli and Gram-positivecocci. Sodium 139 potassium of 3.7 chloride of 106 bicarb of 23 BUN 34 creatinine of 2.5 alk phos of 327 AST of 18 ALT of 24 WBC count of 23,000 with hemoglobin of 8 hematocrit of 25 platelet of 614 segmental [place] 85[place] [id number] Urinalysis with WBC 6-10 RBCs 6-10 nitrite is negative leukocyte Estrace +1. Protein 2+ glucose 1+. ProBNP 23422. Assessment and plan: 1. Right diabetic foot infection with signs of gas on x-ray as well as early signs of osteomyelitisof the calcaneal bone. Unfortunately patient can not get an MRI for further confirmation due to metallic foreign bodies/body piercing that can not be removed in the genital area. Will request a CT scan of the right foot without contrast. My index suspicion for osteomyelitis is high due to contiguous infection from necrotic plantar ulcer. Patient is currently on cefepime and daptomycin. Switch cefepime to Rocephin 2 g daily continue daptomycin. Will add p.o. Flagyl for anaerobic coverage. Will likely need surgical intervention. Vascular surgery consulted. 2. Chronic stasis dermatitis of the left lower extremity. May consider vascular studies. 3. Type 2 diabetes blood sugars ranging between 139 to 199. 4. History of congestive heart failure with acute congestive heart failure and hypoxemia on presentation. Respiratory status stable. Chest x-ray showed pulmonary edema and elevated BNP. Will defer management to hospitalist. 5. Acute kidney injury with chronic renal insufficiency. Avoid nephrotoxic agent. Creatinine currently is at 2.7. Creatinine approximately a month ago with 1.3. Nephrology following. Patient also hasproteinuria. 6. Leukocytosis most likely secondary to ongoing infection. White count is trending down. Will adjust antibiotic therapy. 7. 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 Patient has an appointment to see Ophthalmology as an outpatient. * Cipriano Mccoy MD - 04/16/2023 10:09 AM CDTAssociated Order(s): IP CONSULT TO VASCULAR SURGERY Images from the original note were not included. [facility]ULAR [facility] CONSULT NOTE Patient Name/MRN: Leeroy Canales [id number] Treatment Team: Vascular Surgery Attending: Hien Rabago MD Today's Date: 04/16/2023 Admitting Service: Medical Admitting location: [id number] Admit Date: 04/15/2023 Code Status: Full Code Reason for Consult:: osteomyelitis History of Present Illness: Leeroy Canales is a 32 y.o. female admitted on 04/15/2023 for dyspnea Location: Right ankle wound Quality: Dull Severity: Severe Duration: Weeks to months Timing: Acute on chronic Context: 32-year-old female with a large past medical history including super morbid obesity, DM, CKD, CHF recent left above knee amputation done at [facility] in December who was admitted for shortness of breath. Vascular surgery consulted for a large right calcaneal wound with concerns for osteomyelitis. Associated Signs/Symptoms: None Exacerbating Factors: None Mitigating Factors: None Past Medical History: Diagnosis Date CHF (congestive heart failure) ([facility]) (HCC) CKD (chronic kidney disease) Diabetes mellitus ([facility]) Hx of AKA (above knee amputation) ([facility]) ([facility]) Left Hypertension Past Surgical History: Procedure Laterality Date ABOVE KNEE LEG AMPUTATION Left History reviewed. No pertinent family history. Social History Tobacco Use Smoking status: Never Smokeless tobacco: Never Substance and Sexual Activity Drug use: Never Sexual activity: None Alcohol Use: Not on file No Known Allergies Prior to Admission medications Medication Sig Start Date End Date Taking? Authorizing Provider amLODIPine (NORVASC) 10 mg tablet Take 1 tablet (10 mg total) by mouth daily Rebel Garcia MD carvediloL (COREG) 12.5 mg tablet Take 1 tablet (12.5 mg total) by mouth 2 (two) times a day with meals Rebel Garcia MD dulaglutide (TRULICITY) 0.75 mg/0.5 mL pen injector Inject 0.5 mL (0.75 mg total) under the skin every 7 days Rebel Garcia MD furosemide (LASIX) 40 mg tablet Take 1 tablet (40 mg total) by mouth daily Rebel Garcia MD loperamide (IMODIUM) 2 mg capsule Take 1 capsule (2 mg total) by mouth 4 (four) times a day as needed for diarrhea 02/21/23 Kranthi Summers, losartan (COZAAR) 25 mg tablet Take 1 tablet (25 mg total) by mouth daily Provider, MD Rebel potassium chloride ER 10 mEq CR tablet Take 2 tablet/capsule (20 mEq total) by mouth daily Provider, MD Rebel ROS: Constitutional: No change in appetite. No recent [...] anxiety, no behavioral changes, no mood swings Objective Vitals: 24hr Min/Max: Temp Min: 36.3 ??C (97.4 ??F) Max: 36.7 ??C (98.1 ??F) Pulse Min: 72 Max: 80 BP Min: 112/71 Max: 158/80 Resp Min: 13 Max: 22 SpO2 Min: 85 % Max: 98 % Most Recent: Vitals: 04/16/23 0835 BP: Pulse: 75 Resp: Temp: SpO2: I/O last 2 completed shifts: In: 100 [P.O.:100] Out: 500 [Urine:500] No intake/output data recorded. Physical Exam: Constitutional: Alert and oriented HEENT: Head atraumatic and normocephalic Neck is supple No carotid bruits Extraocular movements full, sclerae anicteric Chest: Effort normal. Breath sounds normal. Cardiovascular: S1 and S2 are normal. No murmurs rubs or gallops appreciated. Abdominal: Soft, nontender, no masses. Extremities/Vascular: Left above knee amputation healed. Right lower extremity with lipodermatosclerosis and a large ulceration to the plantar heel. Musculoskeletal: Normal range of motion. Neurologic: Cranial nerves 2-12 intact. Strength and sensation intact bilaterally. Skin: Warm Psychiatric: Normal mood and affect. Behavior normal. Judgment normal. Lab/Radiology/Diagnostic Review: Laboratory review: Lab results in the last 24 hours: Recent Results (from the past 24 hour(s)) Comprehensive metabolic panel Collection Time: 04/15/23 1:41 PM Result Value Ref Range Sodium 136 135 - 145 mmol/L Potassium, pl 4.0 3.3 - 4.9 mmol/L Chloride 103 97 - 110 mmol/L CO2 24 22 - 32 mmol/L Anion gap 9 2 - 15 mmol/L BUN 38 (H) 8 - 25 mg/dL Creatinine 2.70 (H) 0.60 - 1.10 mg/dL Glucose 192 70 - 199 mg/dL Calcium 8.1 (L) 8.5 - 10.3 mg/dL Bilirubin, total 0.5 0.1 - 1.2 mg/dL Protein, pl 6.1 (L) 6.5 - 8.5 g/dL Albumin 1.8 (L) 3.5 - 5.0 g/dL Alk phos 381 (H) 40 - 130 Units/L ALT 31 7 - 45 Units/L AST 25 10 - 45 Units/L CBC with auto differential Collection Time: 04/15/23 1:41 PM Result Value Ref Range WBC 32.1 (H) 3.8 - 9.9 K/cumm Hgb 8.7 (L) 11.9 - 15.5 g/dL Hct 27.6 (L) 35.6 - 45.5 % Plt 669 (H) 150 - 400 K/cumm MPV 9.2 9.1 - 12.3 fL RBC 3.27 (L) 3.90 - 5.20 M/cumm MCV 84.4 81.3 - 96.4 fL MCH 26.6 (L) 27.1 - 33.3 pg MCHC 31.5 (L) 32.3 - 35.7 g/dL RDW CV 16.9 (H) 11.1 - 14.9 % RDW SD 52.6 (H) 35.7 - 48.1 fL NRBC abs 0.28 (H) 0.00 - 0.01 K/cumm Troponin T high-sensitivity series (baseline, 2hr, 4hr, 6hr) Collection Time: 04/15/23 1:41 PM Result Value Ref Range Trop T hs 97 (H) <=14 ng/L Pro B-type natriuretic peptide Collection Time: 04/15/23 1:41 PM Result Value Ref Range NT-proBNP 13,499 (H) <=300 pg/mL Sepsis Lactate w/ Reflex Collection Time: 04/15/23 1:41 PM Result Value Ref Range Sepsis Lactate 0.9 0.7 - 2.0 mmol/L D-dimer, quantitative Collection Time: 04/15/23 1:41 PM Result Value Ref Range D-Dimer 6,270 (H) <=499 ng/mL FEU Protime-INR Collection Time: 04/15/23 1:41 PM Result Value Ref Range PT 15.9 (H) 12.0 - 14.6 sec INR 1.3 (H) 0.9 - 1.2 aPTT Collection Time: 04/15/23 1:41 PM Result Value Ref Range aPTT 33 22 - 37 sec Differential, auto Collection Time: 04/15/23 1:41 PM Result Value Ref Range Neutrophil abs 28.4 (H) 1.7 - 6.5 K/cumm Imm gran abs 0.6 (H) 0.0 - 0.1 K/cumm Lymphocyte abs 1.2 0.8 - 3.3 K/cumm Monocyte abs 1.7 (H) 0.2 - 0.8 K/cumm Eosinophil abs 0.1 0.0 - 0.5 K/cumm Basophil abs 0.1 0.0 - 0.1 K/cumm Neutrophil pct 88.5 % Imm gran pct 2.0 % Lymphocyte pct 3.8 % Monocyte pct 5.3 % Eosinophil pct 0.2 % Basophil pct 0.2 % Manual Differential Collection Time: 04/15/23 1:41 PM Result Value Ref Range Differential Auto Neutrophil abs 28.4 (H) 1.7 - 6.5 K/cumm Imm gran abs 0.6 (H) 0.0 - 0.1 K/cumm Lymphocyte abs 1.2 0.8 - 3.3 K/cumm Monocyte abs 1.7 (H) 0.2 - 0.8 K/cumm Eosinophil abs 0.1 0.0 - 0.5 K/cumm Basophil abs 0.1 0.0 - 0.1 K/cumm Neutrophil pct 88.5 % Imm gran pct 2.0 % Lymphocyte pct 3.8 % Monocyte pct 5.3 % Eosinophil pct 0.2 % Basophil pct 0.2 % RBC morphology Present (A) Hypochromasia 3-7/HPF (A) Platelet estimate Automated Count Confirmed eGFR Collection Time: 04/15/23 1:41 PM Result Value Ref Range eGFR 24 mL/min/1.73 m2 Blood gas, arterial Collection Time: 04/15/23 1:50 PM Result Value Ref Range pH, Art 7.40 7.35 - 7.45 PCO2, Arterial 36 35 - 45 mmHg PO2, Arterial 49 (Critical) 83 - 108 mmHg HCO3 Art (Calculated) 22 20 - 30 mmol/L BE, art -2 mmol/L O2 Sat Art (Measured) 78 (L) 90 - 95 % Electrolytes, whole blood Collection Time: 04/15/23 1:50 PM Result Value Ref Range Sodium, Whole Blood 135 135 - 145 mmol/L Potassium, bld 3.9 3.3 - 4.9 mmol/L Ca, ionized, bld 4.76 4.45 - 5.25 mg/dL Glucose, whole blood Collection Time: 04/15/23 1:50 PM Result Value Ref Range Glucose, bld 199 70 - 199 mg/dL Lactate, whole blood Collection Time: 04/15/23 1:50 PM Result Value Ref Range Lactate, bld 0.7 0.7 - 2.0 mmol/L Carboxyhemoglobin, art Collection Time: 04/15/23 1:50 PM Result Value Ref Range Carboxyhemoglobin, arterial 1.7 0.0 - 2.9 % Hemoglobin, total, art Collection Time: 04/15/23 1:50 PM Result Value Ref Range Hemoglobin, Total, Arterial 8.5 (L) 11.9 - 15.5 g/dL Basic metabolic panel Collection Time: 04/15/23 3:43 PM Result Value Ref Range Sodium 136 135 - 145 mmol/L Potassium, pl 4.3 3.3 - 4.9 mmol/L Chloride 107 97 - 110 mmol/L CO2 18 (L) 22 - 32 mmol/L Anion gap 11 2 - 15 mmol/L BUN 40 (H) 8 - 25 mg/dL Creatinine 2.70 (H) 0.60 - 1.10 mg/dL Glucose 193 70 - 199 mg/dL Calcium 7.9 (L) 8.5 - 10.3 mg/dL eGFR Collection Time: 04/15/23 3:43 PM Result Value Ref Range eGFR 24 mL/min/1.73 m2 Troponin T high-sensitivity 2-hour Collection Time: 04/15/23 3:43 PM Result Value Ref Range Trop T hs 87 (H) <=14 ng/L Trop T hs delta -10 (Critical) ng/L Trop T hs interp Significant (Critical) Creatine kinase (CK), total Collection Time: 04/15/23 3:43 PM Result Value Ref Range CK 177 30 - 200 Units/L Influenza A/B, RSV, and COVID-19 PCR Nasopharyngeal Collection Time: 04/15/23 4:52 PM Specimen: Nasopharyngeal Result Value Ref Range COVID-19 RNA Negative Negative Influenza A RNA Negative Negative Influenza B RNA Negative Negative RSV RNA Negative Negative Troponin T high-sensitivity 4-hour Collection Time: 04/15/23 5:37 PM Result Value Ref Range Trop T hs 94 (H) <=14 ng/L Trop T hs delta -3 ng/L Trop T hs interp Insignificant Aerobic and anaerobic culture and gram stain Wound Heel, left Collection Time: 04/15/23 5:37 PM Specimen: Heel, left; Wound Result Value Ref Range Direct Specimen Exam Stain: No polymorphonuclear leukocytes seen. Abundant Gram Positive Cocci Abundant Gram Positive Bacilli Abundant Gram Negative Bacilli Report Preliminary Report: Culture results pending. (.) Aerobic and anaerobic culture and gram stain Wound Abdominal, right lower quadrant Collection Time: 04/15/23 6:26 PM Specimen: Abdominal, right lower quadrant; Wound Result Value Ref Range Direct Specimen Exam Stain: Few polymorphonuclear leukocytes seen. Rare Gram Positive Bacilli Rare Gram Positive Cocci Report Preliminary Report: Culture results pending. (.) POCT glucose Collection Time: 04/15/23 7:56 PM Result Value Ref Range Glucose, POC 189 70 - 199 mg/dL Glucose comment 1 Use This Result Glucose comment 2 RN/MD Notified Troponin T high-sensitivity 6-hour Collection Time: 04/15/23 8:51 PM Result Value Ref Range Trop T hs 89 (H) <=14 ng/L Trop T hs delta See Comment ng/L Trop T hs pct delta See Comment % Trop T hs interp See Comment Urinalysis reflex to microscopic and culture Urine Collection Time: 04/16/23 4:23 AM Specimen: Urine Result Value Ref Range Color, ur Yellow Yellow Clarity, ur Cloudy (A) Clear Specific gravity, ur 1.012 1.003 - 1.030 pH, urine 5.0 Protein, ur ql 2+ (A) Negative Glucose, ur ql 1+ (A) Negative Ketones, ur Negative Negative Bilirubin, ur Negative Negative Blood, ur 2+ (A) Negative Urobilinogen, ur <2.0 <2.0 mg/dL Nitrite, ur Negative Negative Leukocyte esterase, ur 1+ (A) Negative UA reflex comment Reflex to microscopic UA will be performed. Protein / creatinine ratio, urine, random Collection Time: 04/16/23 4:23 AM Result Value Ref Range Protein, ur, quant 241.0 mg/dL Creatinine Ur 127.0 mg/dL Protein/creatinine ratio 1,897.6 (H) 0.0 - 180.0 mg/g CR Urinalysis, microscopic only Collection Time: 04/16/23 4:23 AM Result Value Ref Range WBC, ur 6-10 (A) 0 - 5 /HPF RBC, ur 6-10 (A) 0 - 2 /HPF Epithelial cells, squamous, ur 1-5 0 - 5 /HPF Bacteria, ur 1+ (A) Yeast, ur 2+ (A) Mucous, ur Present (A) Hyaline casts, ur 21-50 (A) 0 - 10 /LPF Granular casts, ur 1-5 (A) 0 - 0 /LPF Culture Reflex Comment Reflex conditions for urine culture (WBC >10) not met. CBC with auto differential Collection Time: 04/16/23 7:06 AM Result Value Ref Range WBC 23.0 (H) 3.8 - 9.9 K/cumm Hgb 8.0 (L) 11.9 - 15.5 g/dL Hct 25.7 (L) 35.6 - 45.5 % Plt 614 (H) 150 - 400 K/cumm MPV 9.2 9.1 - 12.3 fL RBC 2.99 (L) 3.90 - 5.20 M/cumm MCV 86.0 81.3 - 96.4 fL MCH 26.8 (L) 27.1 - 33.3 pg MCHC 31.1 (L) 32.3 - 35.7 g/dL RDW CV 17.2 (H) 11.1 - 14.9 % RDW SD 53.7 (H) 35.7 - 48.1 fL NRBC abs 0.18 (H) 0.00 - 0.01 K/cumm TSH reflex to free T4 Collection Time: 04/16/23 7:06 AM Result Value Ref Range TSH 4.01 0.30 - 4.20 mcIUnit/mL Comprehensive metabolic panel Collection Time: 04/16/23 7:06 AM Result Value Ref Range Sodium 139 135 - 145 mmol/L Potassium, pl 3.7 3.3 - 4.9 mmol/L Chloride 106 97 - 110 mmol/L CO2 23 22 - 32 mmol/L Anion gap 10 2 - 15 mmol/L BUN 34 (H) 8 - 25 mg/dL Creatinine 2.50 (H) 0.60 - 1.10 mg/dL Glucose 139 70 - 199 mg/dL Calcium 7.8 (L) 8.5 - 10.3 mg/dL Bilirubin, total 0.3 0.1 - 1.2 mg/dL Protein, pl 5.4 (L) 6.5 - 8.5 g/dL Albumin 1.6 (L) 3.5 - 5.0 g/dL Alk phos 327 (H) 40 - 130 Units/L ALT 28 7 - 45 Units/L AST 18 10 - 45 Units/L Hemoglobin A1c Collection Time: 04/16/23 7:06 AM Result Value Ref Range Hgb A1C 6.5 (H) 4.0 - 5.6 % Estimated Average Glucose 140 mg/dL Procalcitonin Collection Time: 04/16/23 7:06 AM Result Value Ref Range Procalcitonin 0.56 0.02 - 0.80 ng/mL Pro B-type natriuretic peptide Collection Time: 04/16/23 7:06 AM Result Value Ref Range NT-proBNP 11,534 (H) <=300 pg/mL Differential, auto Collection Time: 04/16/23 7:06 AM Result Value Ref Range Neutrophil abs 19.7 (H) 1.7 - 6.5 K/cumm Imm gran abs 0.4 (H) 0.0 - 0.1 K/cumm Lymphocyte abs 1.3 0.8 - 3.3 K/cumm Monocyte abs 1.4 (H) 0.2 - 0.8 K/cumm Eosinophil abs 0.2 0.0 - 0.5 K/cumm Basophil abs 0.0 0.0 - 0.1 K/cumm Neutrophil pct 85.4 % Imm gran pct 1.8 % Lymphocyte pct 5.7 % Monocyte pct 6.1 % Eosinophil pct 0.9 % Basophil pct 0.1 % eGFR Collection Time: 04/16/23 7:06 AM Result Value Ref Range eGFR 26 mL/min/1.73 m2 POCT glucose Collection Time: 04/16/23 7:34 AM Result Value Ref Range Glucose, POC 148 70 - 199 mg/dL Glucose comment 1 Use This Result Assessment: Active Problems: Acute diastolic congestive heart failure (CMS/HCC) (HCC) Type II diabetes mellitus with foot ulcer (HCC) Hypertension Acute respiratory failure with hypoxia (CMS/HCC) (HCC) Diarrhea Acute kidney failure (HCC) Elevated troponin Osteomyelitis (HCC) Wounds, multiple Leeroy L Richard Canales is a 32 y.o. female with a history of HTN, HLD dm, CKD CHF and a left above knee amputation admitted for shortness of breath. A right heel wound that is concerning for osteomyelitis Plan: 1. Right calcaneus osteomyelitis -from vascular surgery standpoint the only thing I can provide would be an above knee amputation. Discussed at length with the patient, she would not want any further surgery or an amputation. Givenher body habitus and other medical comorbidities I would agree with this as 2 above knee amputations with minimal rehabilitation would be extremely high risk for further morbidity or mortality. - continue IV antibiotics 2. CHF -Lasix 3. DM -insulin Cipriano Mccoy MD Vascular Surgery This note was generated in part or in whole with voice recognition software. Voice recognition is usually quite accurate but there are beam dyer errors that can and often occur. All attempts weremade to correct these errors. I apologize for any typographical errors that were not detected and corrected. * Sultan Sofía Muro MD - 04/15/2023 5:46 PM CDTAssociated Order(s): IP CONSULT TO CARDIOLOGY Consult Reason for Consult: Congestive heart failure Requesting Provider: Dr. Hancock HPI. Patient is a 32 y.o. female with chief complaint of increasing dyspnea for the last few days. She is been dyspneic on lying down as well as on minimal activity. Cough on lying down. No chest pain. No nausea or vomiting. No fever or chills. No diarrhea. No palpitation, presyncope or syncope. Nowheezing. She is morbidly obese. Has history of hypertension and insulin-dependent diabetes mellitus. She was told a few weeks ago that she might have congestive heart failure. Is no history of myocardial infarction. No coronary artery bypass surgery or coronary artery stenting. She underwent aboutthe knee amputation of the left leg at [facility] a few months ago for osteomyelitis. On this admission, the chest x-ray shows gross cardiomegaly, fluid overload. She has stage IV close to stage 5 kidney disease. Severe hypoxia. No history of heavy drinking, smoking or drug abuse. Past Medical History: Diagnosis Date Diabetes mellitus (HCC) Hypertension History reviewed. No pertinent surgical history. (Not in a hospital admission) No Known Allergies Social History Tobacco Use Smoking status: Never Smokeless tobacco: Never Substance and Sexual Activity Drug use: Never Sexual activity: None Alcohol Use: Not on file History reviewed. No pertinent family history. Review of Systems: Constitutional no fever or chills. Morbid obesity. Central nervous system no stroke, seizures or headaches. Pulmonary system no bronchial asthma or emphysema. No coughing no wheezing. Cardiovascular system . Dyspnea on mild activity. Orthopnea. No palpitations, presyncope, or syncope. Has hypertension. No myocardial infarction .No coronary artery bypass surgery or coronary artery stenting. Congestive heart failure. GI tract. No nausea, vomiting or abdominal pain. No abdominal cramps or diarrhea. tract. No dysuria or frequency of micturition. Renal insufficiency. Musculoskeletal no acute joint pain or swelling. Endocrine system . Insulin-dependent diabetes mellitus. Psychiatric system no anxiety, depression, or psychosis. Hematology oncology no malignancy or anemia. Dermatology. No psoriasis or eczema. Autoimmune system. No lupus or scleroderma. Objective Vitals: 24hr Min/Max: Temp Min: 36.7 ??C (98.1 ??F) Max: 36.7 ??C (98.1 ??F) Pulse Min: 77 Max: 80 BP Min: 132/77 Max: 158/80 Resp Min: 13 Max: 22 SpO2 Min: 85 % Max: 98 % Most Recent: Vitals: 04/15/23 1705 BP: 158/80 Pulse: 77 Resp: 13 Temp: SpO2: 97% No intake/output data recorded. No intake/output data recorded. Physical Exam: General Appearance: Alert, cooperative, no distress, appears stated age, well developed, well nourished Head: Normocephalic, without obvious abnormality, atraumatic Eyes: PERRL, conjunctiva/corneas clear, EOM's intact, fundi benign, both eyes, anicteric Neck: Supple, symmetrical, trachea midline, no adenopathy; thyroid: No enlargement/tenderness/nodules; no carotid bruit or JVD Back: Symmetric, no curvature, ROM normal, no CVA tenderness Lungs: Clear to auscultation bilaterally, respirations unlabored Cardiovascular: Regular rhythm. PMI not palpable because of the patient's size. Normal S1 and S2 without any murmur or gallop. Abdomen: Soft, non-tender, bowel sounds active all four quadrants, no masses, no organomegaly, non-distended Extremities: Extremities normal, atraumatic, no cyanosis or edema, no clubbing Skin: Skin color, texture, turgor normal, no rashes, lesions or bruising Lymph nodes: Cervical, supraclavicular, and axillary nodes normal Neurologic: Alert & oriented x 4, CNII-XII intact. Normal strength, sensation and reflexes throughout Lab/Radiology/Diagnostic Review: Results for orders placed or performed during the hospital encounter of 04/15/23 Comprehensive metabolic panel Result Value Ref Range Sodium 136 135 - 145 mmol/L Potassium, pl 4.0 3.3 - 4.9 mmol/L Chloride 103 97 - 110 mmol/L CO2 24 22 - 32 mmol/L Anion gap 9 2 - 15 mmol/L BUN 38 (H) 8 - 25 mg/dL Creatinine 2.70 (H) 0.60 - 1.10 mg/dL Glucose 192 70 - 199 mg/dL Calcium 8.1 (L) 8.5 - 10.3 mg/dL Bilirubin, total 0.5 0.1 - 1.2 mg/dL Protein, pl 6.1 (L) 6.5 - 8.5 g/dL Albumin 1.8 (L) 3.5 - 5.0 g/dL Alk phos 381 (H) 40 - 130 Units/L ALT 31 7 - 45 Units/L AST 25 10 - 45 Units/L CBC with auto differential Result Value Ref Range WBC 32.1 (H) 3.8 - 9.9 K/cumm Hgb 8.7 (L) 11.9 - 15.5 g/dL Hct 27.6 (L) 35.6 - 45.5 % Plt 669 (H) 150 - 400 K/cumm MPV 9.2 9.1 - 12.3 fL RBC 3.27 (L) 3.90 - 5.20 M/cumm MCV 84.4 81.3 - 96.4 fL MCH 26.6 (L) 27.1 - 33.3 pg MCHC 31.5 (L) 32.3 - 35.7 g/dL RDW CV 16.9 (H) 11.1 - 14.9 % RDW SD 52.6 (H) 35.7 - 48.1 fL NRBC abs 0.28 (H) 0.00 - 0.01 K/cumm Troponin T high-sensitivity series (baseline, 2hr, 4hr, 6hr) Result Value Ref Range Trop T hs 97 (H) <=14 ng/L Pro B-type natriuretic peptide Result Value Ref Range NT-proBNP 13,499 (H) <=300 pg/mL Blood gas, arterial Result Value Ref Range pH, Art 7.40 7.35 - 7.45 PCO2, Arterial 36 35 - 45 mmHg PO2, Arterial 49 (Critical) 83 - 108 mmHg HCO3 Art (Calculated) 22 20 - 30 mmol/L BE, art -2 mmol/L O2 Sat Art (Measured) 78 (L) 90 - 95 % Electrolytes, whole blood Result Value Ref Range Sodium, Whole Blood 135 135 - 145 mmol/L Potassium, bld 3.9 3.3 - 4.9 mmol/L Ca, ionized, bld 4.76 4.45 - 5.25 mg/dL Glucose, whole blood Result Value Ref Range Glucose, bld 199 70 - 199 mg/dL Lactate, whole blood Result Value Ref Range Lactate, bld 0.7 0.7 - 2.0 mmol/L Carboxyhemoglobin, art Result Value Ref Range Carboxyhemoglobin, arterial 1.7 0.0 - 2.9 % Hemoglobin, total, art Result Value Ref Range Hemoglobin, Total, Arterial 8.5 (L) 11.9 - 15.5 g/dL Sepsis Lactate w/ Reflex Result Value Ref Range Sepsis Lactate 0.9 0.7 - 2.0 mmol/L D-dimer, quantitative Result Value Ref Range D-Dimer 6,270 (H) <=499 ng/mL FEU Protime-INR Result Value Ref Range PT 15.9 (H) 12.0 - 14.6 sec INR 1.3 (H) 0.9 - 1.2 aPTT Result Value Ref Range aPTT 33 22 - 37 sec Differential, auto Result Value Ref Range Neutrophil abs 28.4 (H) 1.7 - 6.5 K/cumm Imm gran abs 0.6 (H) 0.0 - 0.1 K/cumm Lymphocyte abs 1.2 0.8 - 3.3 K/cumm Monocyte abs 1.7 (H) 0.2 - 0.8 K/cumm Eosinophil abs 0.1 0.0 - 0.5 K/cumm Basophil abs 0.1 0.0 - 0.1 K/cumm Neutrophil pct 88.5 % Imm gran pct 2.0 % Lymphocyte pct 3.8 % Monocyte pct 5.3 % Eosinophil pct 0.2 % Basophil pct 0.2 % Manual Differential Result Value Ref Range Differential Auto Neutrophil abs 28.4 (H) 1.7 - 6.5 K/cumm Imm gran abs 0.6 (H) 0.0 - 0.1 K/cumm Lymphocyte abs 1.2 0.8 - 3.3 K/cumm Monocyte abs 1.7 (H) 0.2 - 0.8 K/cumm Eosinophil abs 0.1 0.0 - 0.5 K/cumm Basophil abs 0.1 0.0 - 0.1 K/cumm Neutrophil pct 88.5 % Imm gran pct 2.0 % Lymphocyte pct 3.8 % Monocyte pct 5.3 % Eosinophil pct 0.2 % Basophil pct 0.2 % RBC morphology Present (A) Hypochromasia 3-7/HPF (A) Platelet estimate Automated Count Confirmed eGFR Result Value Ref Range eGFR 24 mL/min/1.73 m2 Basic metabolic panel Result Value Ref Range Sodium 136 135 - 145 mmol/L Potassium, pl 4.3 3.3 - 4.9 mmol/L Chloride 107 97 - 110 mmol/L CO2 18 (L) 22 - 32 mmol/L Anion gap 11 2 - 15 mmol/L BUN 40 (H) 8 - 25 mg/dL Creatinine 2.70 (H) 0.60 - 1.10 mg/dL Glucose 193 70 - 199 mg/dL Calcium 7.9 (L) 8.5 - 10.3 mg/dL eGFR Result Value Ref Range eGFR 24 mL/min/1.73 m2 Troponin T high-sensitivity 2-hour Result Value Ref Range Trop T hs 87 (H) <=14 ng/L Trop T hs delta -10 (Critical) ng/L Trop T hs interp Significant (Critical) NM Pulmonary Perfusion Imaging Result Date: 04/15/2023 Narrative: EXAM DESCRIPTION: NM PULMONARY PERFUSION IMAGING RADIOPHARMACEUTICAL: 4 mCi Tc-99m MAA via a right antecubital vein IV site REASON FOR STUDY: Chest pain. Shortness of breath and cough. TECHNIQUE: Limited multi-planar perfusion scintigrams were obtained. COMPARISON: Chest radiograph 04/15/2023 FINDINGS: Perfusion images obtained in the anterior, anterior oblique, and lateral projectionswere obtained. The posterior and posterior oblique projections were not obtained. There is mild enlargement of the cardiomediastinal silhouette. There are no large segmental perfusion defects on the provided images. IMPRESSION: 1. Limited perfusion lung scan with a low probability for pulmonary embolism. THIS IS AN ELECTRONICALLY VERIFIED FINAL REPORT 04/15/2023 4:31 PM - Electronically signed by Amor MAURER T: Report ID: [id number] Reading Location: [id number] XR Foot Right 3 or More Views Result Date: 04/15/2023 Narrative: EXAM DESCRIPTION: XR FOOT RIGHT 3 OR MORE VIEWS REASON FOR STUDY: Wound infection TECHNIQUE: 3 radiographic view(s) of the right foot . COMPARISON: 02/20/2023 FINDINGS: Plantar soft tissueulceration of the hindfoot with underlying soft tissue gas. There is diffuse soft tissue swelling of the foot, particularly involving the dorsal aspect of the mid to forefoot. No radiopaque foreign bodies. There is suspected mild osseous cortical erosion involving the plantar aspect of the calcaneus when compared to the prior exam. No acute fracture or dislocation. IMPRESSION: Prominent soft tissue ulceration of the plantar aspect of the hindfoot with underlying soft tissue gas. Suspected osseous cortical erosion involving the plantar aspect of the calcaneus, concerning for acute osteomyelitis. THIS IS AN ELECTRONICALLY VERIFIED FINAL REPORT 04/15/2023 2:51 PM - Electronically signed by Rio PHILLIPS T: Report ID: [id number] Reading Location: [id number] XR Chest 1 Vw Portable Result Date: 04/15/2023 Narrative: EXAM DESCRIPTION: XR CHEST 1 VIEW REASON FOR STUDY: Shortness of breath Pt with sob, weakness x 2-3 days Hx lg necrotic wnd on rt foot that she is being treated for Pt is lt leg amputee above the knee TECHNIQUE: 1 radiographic view(s) of the chest. COMPARISON: None FINDINGS: LUNGS: Diffuse bilateral interstitial opacities. No focal consolidation. No pneumothorax. No large pleural effusion. HEART/MEDIASTINUM: Cardiac silhouette is enlarged.. Mediastinal and hilar contours appear normal. LINES/TUBES: None. BONES: No acute osseous abnormality. IMPRESSION: Findings are suggestive of pulmonary edema. THIS IS AN ELECTRONICALLY VERIFIED FINAL REPORT 04/15/2023 2:43 PM - Electronically signed by Rio PHILLIPS T: Report ID: [id number] Reading Location: [id number] X-ray of the chest reviewed independently shows gross cardiomegaly, pulmonary congestion. EKG reviewed independently shows normal sinus rhythm, low voltage. No acute EKG changes. Assessment/ Plan:1. Acute congestive heart failure. Gross cardiomegaly on x-ray of the chest. May have cardiomyopathy. Also renal insufficiency contributing to the fluid overload. Lasix for decongestion and consultation with Nephrology. Echo Doppler to assess the left ventricular systolic function. 2. Renal insufficiency. BUN 40, creatinine 2.70. GFR 24. Stage IV close to stage 5 kidney disease. Nephrology has been consulted. 3. Primary hypertension. Blood pressure 158/80. 4. Insulin-dependent diabetes mellitus. 5. Morbid obesity. 6. Status post left AKA. 7. Elevated troponin T... Troponin T 97, 87. Most probably related to the renal insufficiency and congestive heart failure. Jina. * Sushma Friedman MD - 04/15/2023 4:13 PM CDTAssociated Order(s): IP CONSULT TO NEPHROLOGY Nephrology Consult Reason for Consult: Acute chronic kidney failure Requesting Provider: Dr Chao Subjective Patient is a 32 y.o. female with chief complaint of increasing dyspnea. HPI: 32-year-old woman with morbid obesity, presenting with increasing dyspnea, found to be hypoxemic. Serum creatinine has increased from 1.3 to 2.7. Serum albumin was 1.8. Imaging suggestive of pulmonary edema. She is known to have had type 2 diabetes since she was 18 years old, and more recently diagnosed with hypertension. BP has been on the higher side. Diabetes has apparently been uncontrolled recently. She had a left AKA in December 2022. Echocardiogram in August 2022 revealed adequate EF of60% with mild diastolic dysfunction. Past Medical History: Diagnosis Date Diabetes mellitus (HCC) Hypertension History reviewed. No pertinent surgical history. (Not in a hospital admission) No Known Allergies Social History Tobacco Use Smoking status: Never Smokeless tobacco: Never Substance and Sexual Activity Drug use: Never Sexual activity: None Alcohol Use: Not on file Family history positive for diabetes and hypertension History reviewed. No pertinent family history. Review of Systems: Constitutional: Negative for appetite change and fatigue. HENT: Negative. Eyes: Negative. Respiratory: Negative for cough, chest tightness and shortness of breath. Cardiovascular: Negative for chest pain, palpitations and leg swelling. Gastrointestinal: Negative for abdominal pain and nausea. Endocrine: Negative for polydipsia and polyuria. Genitourinary: Negative for decreased urine volume, difficulty urinating, dysuria, flank pain, frequency, hematuria and urgency. Musculoskeletal: Negative for joint swelling and myalgias. Skin: Negative for color change and rash. Allergic/Immunologic: Negative. Neurological: Negative for dizziness, weakness and light-headedness. Hematological: Negative. Psychiatric/Behavioral: Negative. Objective Vitals: 24hr Min/Max: Temp Min: 36.7 ??C (98.1 ??F) Max: 36.7 ??C (98.1 ??F) Pulse Min: 78 Max: 80 BP Min: 135/76 Max: 153/85 Resp Min: 20 Max: 22 SpO2 Min: 85 % Max: 97 % Most Recent: Vitals: 04/15/23 1500 BP: 153/85 Pulse: 78 Resp: 20 Temp: SpO2: 97% Physical Exam: Constitutional: Morbidly obese, in no acute distress. Head: Normocephalic and atraumatic. Eyes: EOM are normal. Neck: Normal range of motion. Cardiovascular: Normal rate and regular rhythm. Pulmonary/Chest: Effort normal and breath sounds normal. Abdominal: Soft. Bowel sounds are normal. Musculoskeletal: Normal range of motion. Left AKA, 2+ edema. Neurological: Alert and oriented to person, place, and time. Skin: Skin is warm and dry. Psychiatric: Normal mood and affect. Assessment /Plan Active Problems: No Active Problems: There are no active problems currently on the Problem List. Please update the Problem List and refresh. BOBBY on CKD in the setting of significant volume overload/pulmonary edema, unclear whether has obstructive uropathy as well, will check a postvoid residual. Does appear quite volume overloaded and will initiate IV furosemide. Obtaining a urinalysis with microscopy as well as a spot urine protein to c reatinine ratio as albumin is 1.8, likely has significant proteinuria. May need to order autoimmuneserology if active UA sediment. Echocardiogram is pending, previous echo with adequate EF and mild diastolic dysfunction. Obtaining a renal ultrasound as well. No acute need for dialysis and hopefully to respond to diuretics. Does have significant leukocytosis may have underlying infection, blood cultures pending, initiated on empiric antibiotics as well. * Darell Paniagua MD - 04/15/2023 3:55 PM CDTAssociated Order(s): IP CONSULT TO PULMONOLOGY; IP CONSULT TO PULMONOLOGY Consultation Note Patient: Leeroy Canales ( - 1990) is a 32 y.o. female. Visit Date: 04/15/2023 I am seeing this patient in consultation, requested by Dr. Valentin (or No ref. provider found) for Hypoxemia. Chief Complaint Patient presents with Shortness of Breath History of Present Illness: The patient is pleasant 32-year-old female who is bed-bound. 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 She is been taking care of by her mom and her sister. She does have history of diabetes. She does not smoke. She presented the emergency room complaining of progressive shortness of breath and cough for the past week or 2. Patient also was having trouble with a wound to her right foot and she is been having nausea. Her initial lab work showed creatinine 2 point 7, alk-phos 381 and albumin 1.8, ABGs showed pH 7.40, pCO2 36 and PO2 49 on room air, [place] WBC was [id number]. Urinalysis showed UTI. Chest x-ray showed Findings are suggestive of pulmonary edema. Her V/Q scan was negative, her D-dimer was elevated. Patient was started on oxygen 4 liter/minute. She does not use oxygenat home or inhaler. She was admitted to the hospital and consultation was requested for further evaluation and management. Upon evaluating the patient, her attitude was depressed or flat. She does report slight postnasal drainage. She does report PND and orthopnea. She denies any history of hemoptysis, epistaxis, hematemesis, melena, hematochezia, diarrhea but constipation. She denies any history syncope or seizure activity. She denies history of fever or chills. She denies any contact with sick people or exposure toTB. She is up-to-date with COVID-19 vaccine. She lives in [place], [place]. She does havea cat at home who does not sleep in her bed. Patient does not ambulate. She was started on cefepime, daptomycin for treatment of possible osteomyelitis. Past Medical History: Past Medical History: Diagnosis Date Diabetes mellitus (HCC) Hypertension Surgical History: History reviewed. No pertinent surgical history. Current Medications: Current Facility-Administered Medications Medication Dose Route Frequency Provider Last Rate Last Admin vancomycin 2,000 mg/520 mL in sodium chloride 0.9% (premix) 2,000 mg 2,000 mg intravenous Once Sam Chao MD Current Outpatient Medications Medication Sig Dispense Refill loperamide (IMODIUM) 2 mg capsule Take 1 capsule (2 mg total) by mouth 4 (four) times a day as needed for diarrhea 12 capsule 0 Allergies: No Known Allergies Family History: History reviewed. No pertinent family history. Other than what mentioned in HPI, no pertinent FH Social History: Social History Tobacco Use Smoking status: Never Smokeless tobacco: Never Substance and Sexual Activity Drug use: Never Sexual activity: None Alcohol Use: Not on file Review of Systems: Review of Systems Constitutional: Positive for fatigue. Negative for appetite change, chills and fever. HENT: Positive for postnasal drip and rhinorrhea. Negative for congestion, ear pain, mouth sores, tinnitus and voice change. Eyes: Negative for photophobia and pain. Respiratory: Positive for cough and shortness of breath. Negative for choking and stridor. Cardiovascular: Positive for leg swelling. Negative for chest pain and palpitations. Gastrointestinal: Negative for abdominal distention, abdominal pain and nausea. Endocrine: Negative for cold intolerance and polyphagia. Genitourinary: Negative for dysuria and hematuria. Musculoskeletal: Positive for gait problem. Negative for joint swelling. Left BKA Skin: Negative for pallor and rash. Allergic/Immunologic: Negative for immunocompromised state. Neurological: Positive for weakness. Negative for seizures and facial asymmetry. Hematological: Negative for adenopathy. Does not bruise/bleed easily. Psychiatric/Behavioral: Negative for agitation and confusion. Physical Exam: Vitals: 04/15/23 1336 04/15/23 1400 04/15/23 1500 BP: 135/76 139/73 153/85 Pulse: 80 79 78 Resp: 22 20 Temp: 36.7 ??C (98.1 ??F) TempSrc: Oral SpO2: (!) 85% 97% 97% Weight: (!) 145 kg (319 lb 10.7 oz) Height: 170.2 cm (5' 7 ) Physical Exam Constitutional: General: She is not in acute distress. Appearance: She is well-developed. She is morbidly obese. She is not diaphoretic. HENT: Head: Normocephalic and atraumatic. Neck: Thyroid: No thyromegaly. Cardiovascular: Rate and Rhythm: Normal rate and regular rhythm. Heart sounds: No murmur heard. No gallop. Pulmonary: Effort: Pulmonary effort is normal. No accessory muscle usage or respiratory distress. Breath sounds: No stridor. Examination of the right-upper field reveals decreased breath sounds. Examination of the left-upper field reveals decreased breath sounds. Examination of the right-lower field reveals rales. Examination of the left-lower field reveals rales. Decreased breath sounds and rales present. Chest: Chest wall: No tenderness. Abdominal: General: Bowel sounds are normal. There is no distension. Palpations: Abdomen is soft. Tenderness: There is no abdominal tenderness. Musculoskeletal: General: No tenderness or deformity. Normal range of motion. Cervical back: Normal range of motion and neck supple. Right lower leg: Edema present. Left lower leg: Edema present. Comments: Left BKA Lymphadenopathy: Cervical: No cervical adenopathy. Skin: General: Skin is warm and dry. Capillary Refill: Capillary refill takes less than 2 seconds. Findings: Rash present. No erythema. Neurological: Mental Status: She is alert and oriented to person, place, and time. Cranial Nerves: No cranial nerve deficit. Motor: Weakness present. Coordination: Coordination normal. Psychiatric: Mood and Affect: Mood is depressed. Behavior: Behavior normal. Data Reviewed Recent Results (from the past 24 hour(s)) Comprehensive metabolic panel Collection Time: 04/15/23 1:41 PM Result Value Ref Range Sodium 136 135 - 145 mmol/L Potassium, pl 4.0 3.3 - 4.9 mmol/L Chloride 103 97 - 110 mmol/L CO2 24 22 - 32 mmol/L Anion gap 9 2 - 15 mmol/L BUN 38 (H) 8 - 25 mg/dL Creatinine 2.70 (H) 0.60 - 1.10 mg/dL Glucose 192 70 - 199 mg/dL Calcium 8.1 (L) 8.5 - 10.3 mg/dL Bilirubin, total 0.5 0.1 - 1.2 mg/dL Protein, pl 6.1 (L) 6.5 - 8.5 g/dL Albumin 1.8 (L) 3.5 - 5.0 g/dL Alk phos 381 (H) 40 - 130 Units/L ALT 31 7 - 45 Units/L AST 25 10 - 45 Units/L CBC with auto differential Collection Time: 04/15/23 1:41 PM Result Value Ref Range WBC 32.1 (H) 3.8 - 9.9 K/cumm Hgb 8.7 (L) 11.9 - 15.5 g/dL Hct 27.6 (L) 35.6 - 45.5 % Plt 669 (H) 150 - 400 K/cumm MPV 9.2 9.1 - 12.3 fL RBC 3.27 (L) 3.90 - 5.20 M/cumm MCV 84.4 81.3 - 96.4 fL MCH 26.6 (L) 27.1 - 33.3 pg MCHC 31.5 (L) 32.3 - 35.7 g/dL RDW CV 16.9 (H) 11.1 - 14.9 % RDW SD 52.6 (H) 35.7 - 48.1 fL NRBC abs 0.28 (H) 0.00 - 0.01 K/cumm Troponin T high-sensitivity series (baseline, 2hr, 4hr, 6hr) Collection Time: 04/15/23 1:41 PM Result Value Ref Range Trop T hs 97 (H) <=14 ng/L Pro B-type natriuretic peptide Collection Time: 04/15/23 1:41 PM Result Value Ref Range NT-proBNP 13,499 (H) <=300 pg/mL Sepsis Lactate w/ Reflex Collection Time: 04/15/23 1:41 PM Result Value Ref Range Sepsis Lactate 0.9 0.7 - 2.0 mmol/L D-dimer, quantitative Collection Time: 04/15/23 1:41 PM Result Value Ref Range D-Dimer 6,270 (H) <=499 ng/mL FEU Protime-INR Collection Time: 04/15/23 1:41 PM Result Value Ref Range PT 15.9 (H) 12.0 - 14.6 sec INR 1.3 (H) 0.9 - 1.2 aPTT Collection Time: 04/15/23 1:41 PM Result Value Ref Range aPTT 33 22 - 37 sec Differential, auto Collection Time: 04/15/23 1:41 PM Result Value Ref Range Neutrophil abs 28.4 (H) 1.7 - 6.5 K/cumm Imm gran abs 0.6 (H) 0.0 - 0.1 K/cumm Lymphocyte abs 1.2 0.8 - 3.3 K/cumm Monocyte abs 1.7 (H) 0.2 - 0.8 K/cumm Eosinophil abs 0.1 0.0 - 0.5 K/cumm Basophil abs 0.1 0.0 - 0.1 K/cumm Neutrophil pct 88.5 % Imm gran pct 2.0 % Lymphocyte pct 3.8 % Monocyte pct 5.3 % Eosinophil pct 0.2 % Basophil pct 0.2 % Manual Differential Collection Time: 04/15/23 1:41 PM Result Value Ref Range Differential Auto Neutrophil abs 28.4 (H) 1.7 - 6.5 K/cumm Imm gran abs 0.6 (H) 0.0 - 0.1 K/cumm Lymphocyte abs 1.2 0.8 - 3.3 K/cumm Monocyte abs 1.7 (H) 0.2 - 0.8 K/cumm Eosinophil abs 0.1 0.0 - 0.5 K/cumm Basophil abs 0.1 0.0 - 0.1 K/cumm Neutrophil pct 88.5 % Imm gran pct 2.0 % Lymphocyte pct 3.8 % Monocyte pct 5.3 % Eosinophil pct 0.2 % Basophil pct 0.2 % RBC morphology Present (A) Hypochromasia 3-7/HPF (A) Platelet estimate Automated Count Confirmed eGFR Collection Time: 04/15/23 1:41 PM Result Value Ref Range eGFR 24 mL/min/1.73 m2 Blood gas, arterial Collection Time: 04/15/23 1:50 PM Result Value Ref Range pH, Art 7.40 7.35 - 7.45 PCO2, Arterial 36 35 - 45 mmHg PO2, Arterial 49 (Critical) 83 - 108 mmHg HCO3 Art (Calculated) 22 20 - 30 mmol/L BE, art -2 mmol/L O2 Sat Art (Measured) 78 (L) 90 - 95 % Electrolytes, whole blood Collection Time: 04/15/23 1:50 PM Result Value Ref Range Sodium, Whole Blood 135 135 - 145 mmol/L Potassium, bld 3.9 3.3 - 4.9 mmol/L Ca, ionized, bld 4.76 4.45 - 5.25 mg/dL Glucose, whole blood Collection Time: 04/15/23 1:50 PM Result Value Ref Range Glucose, bld 199 70 - 199 mg/dL Lactate, whole blood Collection Time: 04/15/23 1:50 PM Result Value Ref Range Lactate, bld 0.7 0.7 - 2.0 mmol/L Carboxyhemoglobin, art Collection Time: 04/15/23 1:50 PM Result Value Ref Range Carboxyhemoglobin, arterial 1.7 0.0 - 2.9 % Hemoglobin, total, art Collection Time: 04/15/23 1:50 PM Result Value Ref Range Hemoglobin, Total, Arterial 8.5 (L) 11.9 - 15.5 g/dL Images: XR Foot Right 3 or More Views Result Date: 04/15/2023 Narrative: EXAM DESCRIPTION: XR FOOT RIGHT 3 OR MORE VIEWS REASON FOR STUDY: Wound infection TECHNIQUE: 3 radiographic view(s) of the right foot . COMPARISON: 02/20/2023 FINDINGS: Plantar soft tissueulceration of the hindfoot with underlying soft tissue gas. There is diffuse soft tissue swelling of the foot, particularly involving the dorsal aspect of the mid to forefoot. No radiopaque foreign bodies. There is suspected mild osseous cortical erosion involving the plantar aspect of the calcaneus when compared to the prior exam. No acute fracture or dislocation. IMPRESSION: Prominent soft tissue ulceration of the plantar aspect of the hindfoot with underlying soft tissue gas. Suspected osseous cortical erosion involving the plantar aspect of the calcaneus, concerning for acute osteomyelitis. THIS IS AN ELECTRONICALLY VERIFIED FINAL REPORT 04/15/2023 2:51 PM - Electronically signed by Rio PHILLIPS T: Report ID: [id number] Reading Location: [id number] XR Chest 1 Vw Portable Result Date: 04/15/2023 Narrative: EXAM DESCRIPTION: XR CHEST 1 VIEW REASON FOR STUDY: Shortness of breath Pt with sob, weakness x 2-3 days Hx lg necrotic wnd on rt foot that she is being treated for Pt is lt leg amputee above the knee TECHNIQUE: 1 radiographic view(s) of the chest. COMPARISON: None FINDINGS: LUNGS: Diffuse bilateral interstitial opacities. No focal consolidation. No pneumothorax. No large pleural effusion. HEART/MEDIASTINUM: Cardiac silhouette is enlarged.. Mediastinal and hilar contours appear normal. LINES/TUBES: None. BONES: No acute osseous abnormality. IMPRESSION: Findings are suggestive of pulmonary edema. THIS IS AN ELECTRONICALLY VERIFIED FINAL REPORT 04/15/2023 2:43 PM - Electronically signed by Rio PHILLIPS T: Report ID: [id number] Reading Location: [id number] Assessment and Plan: Assessment Acute hypoxemic respiratory failure secondary to fluid overload/pulmonary edema and possible sepsis. No history of smoking. Bed bound. Right BKA. Renal insufficiency. Plan Oxygen keep ox saturation more than 92%. Bronchodilators around the clock and as needed with albuterol and Atrovent. Head of bed elevation and aspiration precaution. Diuresis, monitor O2 retires and fluid balance, monitor kidney function. Incentive spirometry and physical therapy. Out of bed to the chair if possible. Pulmonary toilet and pep valve. Check blood culture, sputum culture, ESR, CRP, BNP, procalcitonin and MRSA. Saline nasal spray twice daily. Patient would need outpatient split sleep study. Condition is guarded. Will monitor patient closely. Continue antibiotics, daptomycin and cefepime. Check 2D echocardiogram. Rendering Provider & Department: Darell Paniagua MD THIS NOTE WAS CREATED IN PART WITH THE ASSISTANCE OF [employer]. ASSISTANT PRODUCER VARIANCES MAY OCCUR. For patients or family members viewing this note through [employer]: This note was written as a communication tool between healthcare providers and may contain technical language, terminology and abbreviations that is difficult to interpret without advanced medical training. If you have questions or concerns regarding what is written in this note, please request to speak with the healthcare provider taking care of you or your family member. documented in this encounter Nursing Notes * Orquidea Hinds, JIMMIE - 04/26/2023 4:01 AM CDT Pt transferred to [facility] 630. VSS, report given, pt belongings/home medications with patient. EMS forgot face sheet and Garcia form - will inform. * Johnna Knutson RN - 04/24/2023 3:56 PM CDT Images from the original note were not included. Wound/Ostomy Service Initial Consult Note Admit Date: 04/15/2023 1:30 PM Today's Date: 04/24/23 Day of Hospital Stay: Hospital Day: 10 Reason for Consult: would to heel and abdomen Reviewed pertinent medical history/Labs Level of Consciousness:alert Nutrition: Body mass index is 55.91 kg/m??. Diet/Supplement Orders Procedures Adult Diet Restricted; Cardiac (Low Na, Low Chol) Bedtime snack Oral Nutrition Supplements Select Supplement: Ensure High Protein - Chocolate; Quantity (# of cans): 1 can Diet message Late Tray Diet Late Tray Diet Demurrage Agent Consult: Malnutrition assessment;Supplements Lab Results Component Value Date ALBUMIN 2.1 (L) 04/24/2023 Skin/Wound Assessment: 04/24/23 1530 Pressure Ulcer/Pressure Injury 04/15/23 Right Heel Date First Assessed/Time First Assessed: 04/15/23 1414 Present on Hospital Admission: Yes Location Orientation: Right Location: Heel Pressure Ulcer Status Deteriorating Drainage Amount Copious Drainage Description Foul purulent Dressing Status Changed Dressing/Intervention (Aquacel Ag, Foam) Wound Image Condition of Bony Prominences: Heels: L amputation, R see above Elbows:WNL Coccyx/Buttock:WNL Support Surfaces: Type of Bed: Sizewise KATH Type of Sitting Surface: NA Prevention in Use: Pressure Relief Boots Bordered Foam to sacrum Moisture Control: Incontinence pad Recommendations: Start daily dressing changes to R foot for drainage management Turn and reposition patient approximately every 2 hours. Float heels off of bed with pillows or heel suspension boots. Plan to follow up as needed. Any questions or concerns please contact the Wound/Ostomy department at: [place] [phone] [place] (Mon/Wed/Fri only) [phone] Johnna Knutson RN * Cherise Delcid RN - 04/22/2023 6:07 PM CDT Went to clean patient up, noticed large amount of bright red, jelly like, loose stool. Stool samplewas obtained and sent down to the lab. Dr. Darling was notified. STAT H/H, abdominal CT scan and NMGI bleed study was ordered. Heparin subq. Has been put on hold for now. Patient made aware of situation and understands the testing that is ordered and recommended to be done. Vital signs are within normal range. Patient denies pain, SOB, nausea or any complaints at this time. Per wireless field technician I also placed order for beta HCG blood test prior to getting CT of abdomen scan done. * Cherise Delcid RN - 04/22/2023 5:04 PM CDT Spoke with Dr. Darling today regarding an order for a consult for General surgery to see the patient about a possible need for an I&D of her right foot that was placed yesterday 04/21/23. He stated Dr. Rabago consulted and spoke with General surgery yesterday on 04/21/23 about the consult and made them aware of the patient. I have not seen General surgery yet and made the hospitalist aware of this. Patient's wounds were all cleansed and redressed today. Also spoke with Shaneka with the behavioral health team about an order for a mental health assessment needed due to depressive symptoms per social work group. Agreed to try to do this consult via virtual visit tomorrow. * Johnna Knutson RN - 04/22/2023 1:10 PM CDT Images from the original note were not included. Wound/Ostomy Service Follow up Consult Note Admit Date: 04/15/2023 1:30 PM Today's Date: 04/22/23 Day of Hospital Stay: Hospital Day: 8 Reason for Follow up: multiple wounds, R heel infection Level of Consciousness:alert Nutrition: Body mass index is 55.91 kg/m??. Diet/Supplement Orders Procedures Adult Diet Restricted; 4 CHO/Meal; Yes, patient is receiving insulin Bedtime snack Demurrage Agent Consult: No data found Support Surfaces: Type of Bed: sizewise Type of Sitting Surface:NA Condition of Bony Prominences: Heels: L [place], R unstageable/ infection Elbows:WNL Coccyx/Buttock:WNL Prevention in Use: Pressure Relief Boots Yes Bordered Foam to sacrum Yes Moisture Control: Incontinence pad Urinary Catheter Skin/Wound Assessment: 04/22/23 1130 Pressure Ulcer/Pressure Injury 04/15/23 Lower;Right Abdomen Date First Assessed/Time First Assessed: 04/15/23 1414 Present on Hospital Admission: Yes Location Orientation: Lower;Right Location: Abdomen Pressure Ulcer Status Healing Dressing Status Changed Dressing/Intervention (Medihoney and foam) Slough Covering Wound Bed % 65 Granulation Covering Wound Bed % 35 Wound Image Pressure Ulcer/Pressure Injury 04/15/23 Proximal;Right;Lateral Thigh Date First Assessed/Time First Assessed: 04/15/233 Present on Hospital Admission: Yes Location Orientation: Proximal;Right;Lateral Location: Thigh Pressure Ulcer Status Healing Dressing Status Changed Dressing/Intervention (Medihoney and foam) Wound Image Pressure Ulcer/Pressure Injury 04/15/23 Right Heel Date First Assessed/Time First Assessed: 04/15/23 1414 Present on Hospital Admission: Yes Location Orientation: Right Location: Heel Pressure Ulcer Status Deteriorating Description (infection has tunneled to lateral foot with new open area, large amounts of purulent drainage and 100% slough) Staging Unstageable Drainage Amount Copious Drainage Description Purulent Drainage Odor Foul Dressing Status New Dressing/Intervention (Aquacel Ag, silver foam, bordered foam) Wound Image Recommendations: Awaiting assessment by surgeon for R heel, continue Medihoney to abdominal and thigh wounds, miconazole powder to skin folds Turn and reposition patient approximately every 2 hours. Float heels off of bed with pillows or heel suspension boots. Education: status of heel wound is deteriorating and waiting for surgeon to see the pt Plan to follow up as needed. Any questions or concerns please contact the Wound/Ostomy department at [place] [phone] [place] (Mon/Wed/Fri only) [phone] Johnna Knutson RN * Lexus Pizarro RN - 04/17/2023 12:05 PM CDT Attempted to see patient for wound care to right heel. PICC nurse finishing visit with patient and patient currently eating lunch. Instructed JIMMIE Barnes on wound care to right heel to change to silver foam and roll gauze dressing. Cameron to perform wound care. * Maribell Centeno RN - 04/16/2023 4:52 PM CDT Images from the original note were not included. Wound/Ostomy Service Initial Consult Note Admit Date: 04/15/2023 1:30 PM Today's Date: 04/16/23 Day of Hospital Stay: Hospital Day: 2 Reason for Consult: would to heel and abdomen Nutrition: Body mass index is 49.81 kg/m??. Diet/Supplement Orders Procedures Adult Diet Restricted; 4 CHO/Meal; Yes, patient is receiving insulin Bedtime snack Demurrage Agent Consult: No data found Lab Results Component Value Date ALBUMIN 1.6 (L) 04/16/2023 Skin/Wound Assessment: 04/16/23 1445 Pressure Ulcer/Pressure Injury 04/15/23 Lower;Right Abdomen Date First Assessed/Time First Assessed: 04/15/231413 Present on Hospital Admission: Yes Location Orientation: Lower;Right Location: Abdomen Description Unstageable, full thickness tissue loss. The base of the ulcer is not visible due to slough and/or eschar. Staging Unstageable Nicole-wound Assessment Dry;Intact Drainage Amount Scant Drainage Description Serous Drainage Odor No odor Dressing Status Changed Dressing/Intervention (medihoney, polymem max and bordered foam) Wound Length (cm) 5 cm Wound Width (cm) 8.7 cm Wound Depth (cm) 0 Slough Covering Wound Bed % 100 Wound Image Pressure Ulcer/Pressure Injury 04/15/23 Proximal;Right;Lateral Thigh Date First Assessed/Time First Assessed: 04/15/232122 Present on Hospital Admission: Yes Location Orientation: Proximal;Right;Lateral Location: Thigh Description Unstageable, full thickness tissue loss. The base of the ulcer is not visible due to slough and/or eschar. Staging Unstageable Drainage Amount Scant Drainage Description Serous Drainage Odor No odor Dressing Status Changed Dressing/Intervention (medihoney and bordered foam) Wound Length (cm) 1.9 cm Wound Width (cm) 2.2 cm Wound Depth (cm) 0 Shape Circular Slough Covering Wound Bed % 100 Wound Image Pressure Ulcer/Pressure Injury 04/15/23 Right Heel Date First Assessed/Time First Assessed: 04/15/231413 Present on Hospital Admission: Yes Location Orientation: Right Location: Heel Description Unstageable, full thickness tissue loss. The base of the ulcer is not visible due to slough and/or eschar. Staging Unstageable Nicole-wound Assessment Maceration;Fragile;Flaky Drainage Amount Small Drainage Description Brown Drainage Odor Foul;Malodorous Dressing Status Changed Dressing/Intervention (medihoney, polymem max, kerlix) Wound Length (cm) 2.1 cm Wound Width (cm) 2.2 cm Wound Depth (cm) 0 Shape Circular Eschar Covering Wound Bed % 100 Wound Image Plan of care discussed with: Primary RN Milagro, swati Humphrey, vascular was consulted but has signed off at this time. ID consult ordered by MD. Condition of Bony Prominences: Heels: R heel unstageable, L amputation Elbows:WDL Coccyx/Buttock:hyperpigmentation Support Surfaces: Type of Bed: KATH baribed ordered Type of Sitting Surface: waffle cushion recommended if patient is seated Prevention in Use: Pressure Relief Boots RN to apply to R foot Bordered Foam to sacrum yes for prevention Moisture Control: Incontinence pad Urinary Catheter Education: unable to educate patients, drowsy Recommendations: Turn and reposition patient approximately every 2 hours. Float heels off of bed with pillows or heel suspension boots. Plan to follow up as needed. Any questions or concerns please contact the Wound/Ostomy department at: [place] [phone] [place] (Mon/Wed/Fri only) [phone] Maribell Centeno RN documented in this encounter ED Notes * Sam Chao MD - 04/15/2023 1:39 PM CDT Images from the original note were not included. HPI Chief Complaint Patient presents with Shortness of Breath History is noted in the triage note. For the last 2 weeks whenever I lay flat I cough I been shortof breath. Home health said my saturations were low I have no chest pain I do not use oxygen at home. I have this wounds to my right foot and my stomach. History provided by: Patient Shortness of Breath Severity: Moderate Onset quality: Gradual Duration: 2 weeks Timing: Intermittent Progression: Waxing and waning Chronicity: New Context comment: Morbid obesity history of diabetes Exacerbated by: Lying down. Relieved by: Sitting up Ineffective treatments: None tried Associated symptoms: no abdominal pain, no chest pain, no claudication, no cough, no diaphoresis, no ear pain, no fever, no hemoptysis, no PND, no rash, no sore throat, no sputum production, no syncope, no vomiting and no wheezing Risk factors: obesity Risk factors: no recent alcohol use, no CHF, no COPD, no hx of PE/DVT and no pulmonary disease Patient History: Patient Active Problem List Diagnosis Date Noted Acute diastolic congestive heart failure (CMS/HCC) ([facility]) 04/15/2023 Type II diabetes mellitus with foot ulcer ([facility]) 04/15/2023 Hypertension 04/15/2023 Acute respiratory failure with hypoxia (CMS/HCC) ([facility]) 04/15/2023 Diarrhea 04/15/2023 Acute kidney failure ([facility]) 04/15/2023 Elevated troponin 04/15/2023 Osteomyelitis ([facility]) 04/15/2023 Wounds, multiple 04/15/2023 Past Medical History: Diagnosis Date CHF (congestive heart failure) ([facility]) ([facility]) Diabetes mellitus ([facility]) Hypertension Past Surgical History: Procedure Laterality Date ABOVE KNEE LEG AMPUTATION Left History reviewed. No pertinent family history. Social History Tobacco Use Smoking status: Never Smokeless tobacco: Never Substance and Sexual Activity Alcohol use: None Drug use: Never Sexual activity: None Social History Social History Narrative Not on file Review of Systems Review of Systems Constitutional: Negative for chills, diaphoresis and fever. HENT: Negative for ear pain and sore throat. Eyes: Negative for pain and visual disturbance. Respiratory: Positive for shortness of breath. Negative for cough, hemoptysis, sputum production and wheezing. Cardiovascular: Negative for chest pain, palpitations, claudication, syncope and PND. Gastrointestinal: Negative for abdominal pain and vomiting. Genitourinary: Negative for dysuria and hematuria. Musculoskeletal: Negative for arthralgias and back pain. Skin: Negative for color change and rash. Neurological: Negative for seizures and syncope. All other systems reviewed and are negative. Physical Exam ED Triage Vitals Temp Pulse Resp BP SpO2 04/15/23 1336 04/15/23 1336 04/15/23 1336 04/15/23 1336 04/15/23 1336 36.7 ??C (98.1 ??F) 80 22 135/76 (!) 85 % Temp src Heart Rate Source Patient Position BP Location FiO2 (%) 04/15/23 1336 04/15/23 1500 04/15/23 1950 04/15/23 1950 -- Oral Monitor HOB 30 degrees Right arm Height Height Method Weight Weight Method 04/15/23 1336 04/15/23 1336 04/15/23 1336 04/15/23 1336 1.702 m (5' 7 ) Stated (!) 145 kg (319 lb 10.7 oz) EMS stretcher scale Physical Exam Vitals and nursing note reviewed. Constitutional: General: She is not in acute distress. Appearance: She is well-developed. HENT: Head: Normocephalic and atraumatic. Eyes: Conjunctiva/sclera: Conjunctivae normal. Cardiovascular: Rate and Rhythm: Normal rate and regular rhythm. Heart sounds: No murmur heard. Pulmonary: Effort: Pulmonary effort is normal. No respiratory distress. Breath sounds: Normal breath sounds. Abdominal: Palpations: Abdomen is soft. Tenderness: There is no abdominal tenderness. Comments: Abdominal pannus 6 x 3 skin erosion with cellulitis Musculoskeletal: General: No swelling. Cervical back: Neck supple. Comments: Chronic stasis dermatitis left AKA right chronic stasis dermatitis heel ulcer with escharDoppler peripheral pulses Skin: General: Skin is warm and dry. Capillary Refill: Capillary refill takes less than 2 seconds. Neurological: Mental Status: She is alert. Psychiatric: Mood and Affect: Mood normal. MDM Heart Score History (Anamnesis): 1 EC Age: 2 Risk factors: 2 Troponin: 0 Heart Score Total: 4 Medical Decision Making Diabetes morbid obesity shortness of breath rule out acute coronary syndrome acute CHF pneumonia PEdissection Amount and/or Complexity of Data Reviewed Labs: ordered. Radiology: ordered. ECG/medicine tests: ordered. Risk Prescription drug management. Decision regarding hospitalization. ED Course as of 04/15/232055 Time: 04/15 1416 Comment: Hypoxic respiratory insufficiency leukocytosis sepsis lactate within normal reference range By: Sam Chao MD Time: 04/15 1679 Comment: Chest x-ray cardiomegaly pulmonary vascular congestion x-ray right foot soft tissue By: Sam Chao MD Time: 04/15 0049 Comment: sepsis lactate within normal reference range leukocytosis chest x-ray no consolidated pneumonia cardiomegaly with pulmonary vascular congestion elevated BNP suspect congestive heart failure IV fluids to a minimum By: Sam Chao MD Time: 04/15 6133 Comment: Underlying leukocytosis related to wound infection abdominal pannus as well as right heel By: Sam Chao MD Time: 04/15 3408 Comment: Consult to Cardiology hypoxic respiratory insufficiency pulmonary edema elevated BNP elevated D-dimer check CTA secondary issue related to chronic kidney failure osteomyelitis right heel chronic wound 1-1/2 months with leukocytosis admit check V/Q scan sepsis lactate within normal reference range no IV fluids sepsis protocol because of congestive heart failure By: Sam Chao MD Time: 04/15 1526 Comment: Discussed with Dr. Muro-consult with Nephrology will consult with pulmonary By: Sam Chao MD Time: 04/15 1534 Comment: Discussed with neprology Pulmonary will see patient By: Sam Chao MD Time: 04/15 1539 Comment: 2nd IV access By: Sam Chao MD Time: 04/15 1618 Comment: Discussed with hospitalist see patient 2 hour troponin elevated delta no chest pain By: Sam Chao MD Time: 04/15 8221 Comment: Low probability for PE nonspecific elevated troponin delta stress reaction acute chronic kidney disease cardiology here see patient admit By: Sam Chao MD Final diagnoses: Shortness of breath Diabetes mellitus with coincident hypertension (HCC) Respiratory insufficiency - Hypoxic respiratory insufficiency Abdominal pannus - Superficial Erosion cellulitis Heel ulceration, right, with unspecified severity ([facility]) - Rule out osteomyelitis Acute on chronic congestive heart failure, unspecified heart failure type ([facility]) Acute renal failure superimposed on chronic kidney disease, unspecified CKD stage, unspecified acute renal failure type (HCC) Chronic wound infection of abdomen, initial encounter Sam Chao MD 04/15/232049 Sam Chao MD 04/15/232049 Sam Chao MD 04/15/232055 * Yo Mcintosh RN - 04/15/2023 1:32 PM CDT Pt presents via ems for c/o SOB X1 mo when laying down. Pt states she was being seen by home healthfor wound to her right foot and they noticed she was hypoxic. Has had this wound for the past 1.5moand today was first visit from [facility]. documented in this encounter Miscellaneous Notes * Plan of Care - Penny Cole RN - 04/25/2023 1:46 PM CDT Called [facility] transfer line [phone], they confirmed patient is on waiting list for bed assignment. * Plan of Care - Johanna Narayanan RN - 04/25/2023 11:44 AM CDT Problem: Lack of Knowledge Goal: Knowledge of disease or condition will improve Outcome: Progressing Problem: Lack of Knowledge: Goal: Ability to state ways to decrease the risk of falls will improve Outcome: Progressing Problem: Safety: Goal: Will remain free from falls Outcome: Progressing Goal: Will remain free from injury from falls Outcome: Progressing Goal: Will remain free from falls and injury in home environment Outcome: Progressing Problem: Activity: Goal: Mobility will improve Outcome: Progressing Problem: Lack of Knowledge: Goal: Understanding of ways to prevent future skin breakdown will improve Outcome: Progressing Goal: Ability to identify appropriate dietary choices will improve Outcome: Progressing Problem: Nutritional: Goal: Dietary intake will improve Outcome: Progressing Goal: Ability to maintain a balanced intake and output will improve Outcome: Progressing Problem: Skin Integrity: Goal: Risk for impaired skin integrity will decrease Outcome: Progressing Goal: Ability to demonstrate warm and dry skin will improve Outcome: Progressing Goal: Circulation will improve to fullest extent possible Outcome: Progressing Problem: Health Behavior: Goal: Understanding of discharge needs will improve Outcome: Progressing Problem: Lack of Knowledge: Goal: Ability to develop a pain control plan will improve Outcome: Progressing Goal: Ability to identify pain intensity on a pain scale and rate it consistently will improve Outcome: Progressing Goal: Ability to notify healthcare provider of pain before it becomes unmanageable or unbearable will improve Outcome: Progressing Problem: Medication: Goal: Satisfaction with pain management regimen will improve Outcome: Progressing Problem: Sensory: Goal: Ability to identify factors that increase the pain will improve Outcome: Progressing Goal: Pain level will decrease Outcome: Progressing Problem: Activity: Goal: Capacity to carry out activities will improve Outcome: Progressing Problem: Cardiac: Goal: Cardiovascular alteration will improve Outcome: Progressing Goal: Hemodynamic stability will improve Outcome: Progressing Problem: Lack of Knowledge: Goal: Verbalization of understanding the information provided will improve Outcome: Progressing Problem: Fluid Volume: Goal: Risk for excess fluid volume will decrease Outcome: Progressing Problem: Physical Regulation: Goal: Complications related to the disease process, condition or treatment will be avoided or minimized Outcome: Progressing Goal: Diagnostic test results will improve Outcome: Progressing Problem: Respiratory: Goal: Ability to maintain a clear airway will improve Outcome: Progressing Goal: Respiratory status will improve Outcome: Progressing Problem: Safety: Goal: Will remain free from falls Outcome: Progressing * Plan of Care - Bryanna James NP - 04/25/2023 8:55 AM CDT Chart reviewed. Patient's goals are clear --> transfer to [facility] for debridement; no plan for amputation, cont. IV abx. Advance directives completed, continue DNR code status. Inpatient palliative care team signing off. Please reconsult if needed. Bryanna James APRN Palliative Care Nurse Practitioner [phone] Care team -- please use Epic Chat as preferred communication * Plan of Care - Rio Cardoza, JIMMIE - 04/25/2023 3:49 AM CDT Goals: Problem: Lack of Knowledge: Goal: Ability to state ways to decrease the risk of falls will improve Outcome: Progressing Problem: Safety: Goal: Will remain free from falls Outcome: Progressing Goal: Will remain free from injury from falls Outcome: Progressing Goal: Will remain free from falls and injury in home environment Outcome: Progressing Problem: Activity: Goal: Mobility will improve Outcome: Progressing Clinical Goals for the Shift: IV antibiotics and NPO at midnight for EGD/Scope tomorrow Summary: Patient alert oriented x4. No complains of pain during the shift. No complain of nausea orvomiting during the shift. All precautions maintained. Due meds given. Intentional rounding made throughout the shift. Kept clean, dry and comfortable. Call lights placed within reach. Will continue to monitor. * Plan of Care - Lesly Schneider RN - 04/24/2023 3:30 AM CDT Goals: Clinical Goals for the Shift: IV antibiotics and NPO at midnight for EGD/Scope tomorrow Summary: Pt resting in bed, incontinent of stool, nicole/fortune care done. CHG bath done and gown/linens changed. Pt refusing to turn through out shift, educated about importance, pt still refusing. Pt NPO at midnight for EGD and sigmoidoscopy. Pt resting well through out shift. Neuro: Pt A&Ox4 Cardio: Pt on tele, NSR Resp: Pt on 5L NC, lungs are dim Problem: Lack of Knowledge Goal: Knowledge of disease or condition will improve Outcome: Progressing Problem: Lack of Knowledge: Goal: Ability to state ways to decrease the risk of falls will improve Outcome: Progressing Problem: Safety: Goal: Will remain free from falls Outcome: Progressing Goal: Will remain free from injury from falls Outcome: Progressing Goal: Will remain free from falls and injury in home environment Outcome: Progressing Problem: Activity: Goal: Mobility will improve Outcome: Progressing Problem: Lack of Knowledge: Goal: Understanding of ways to prevent future skin breakdown will improve Outcome: Progressing Goal: Ability to identify appropriate dietary choices will improve Outcome: Progressing Problem: Nutritional: Goal: Dietary intake will improve Outcome: Progressing Goal: Ability to maintain a balanced intake and output will improve Outcome: Progressing Problem: Skin Integrity: Goal: Risk for impaired skin integrity will decrease Outcome: Progressing Goal: Ability to demonstrate warm and dry skin will improve Outcome: Progressing Goal: Circulation will improve to fullest extent possible Outcome: Progressing Problem: Health Behavior: Goal: Understanding of discharge needs will improve Outcome: Progressing Problem: Lack of Knowledge: Goal: Ability to develop a pain control plan will improve Outcome: Progressing Goal: Ability to identify pain intensity on a pain scale and rate it consistently will improve Outcome: Progressing Goal: Ability to notify healthcare provider of pain before it becomes unmanageable or unbearable will improve Outcome: Progressing Problem: Medication: Goal: Satisfaction with pain management regimen will improve Outcome: Progressing Problem: Sensory: Goal: Ability to identify factors that increase the pain will improve Outcome: Progressing Goal: Pain level will decrease Outcome: Progressing Problem: Activity: Goal: Capacity to carry out activities will improve Outcome: Progressing Problem: Cardiac: Goal: Cardiovascular alteration will improve Outcome: Progressing Goal: Hemodynamic stability will improve Outcome: Progressing Problem: Lack of Knowledge: Goal: Verbalization of understanding the information provided will improve Outcome: Progressing Problem: Fluid Volume: Goal: Risk for excess fluid volume will decrease Outcome: Progressing Problem: Physical Regulation: Goal: Complications related to the disease process, condition or treatment will be avoided or minimized Outcome: Progressing Goal: Diagnostic test results will improve Outcome: Progressing Problem: Respiratory: Goal: Ability to maintain a clear airway will improve Outcome: Progressing Goal: Respiratory status will improve Outcome: Progressing Problem: Safety: Goal: Will remain free from falls Outcome: Progressing * ACP (Advance Care Planning) - Zoey Gordon LCSW - 04/23/2023 11:00 AM CDT Advance Care Planning Advance Care Planning Conversation The patient and/or family consented to a voluntary Advance Care Planning conversation. Individuals present for the conversation: patient and care bridge/structure inspection team leader(s): PC SW, PC mr teacher, PCS RN Advance Directive: Yes On file: Yes Power of Multi Sensor Operator Name: Kianna Nunez Relationship: sister Summary of the conversation: PC Team met with the pt at the bedside to introduce the palliative care team, philosophy, and discuss goals of care. Pt is alert and oriented; appears to have a good understanding of her illness. Pt states that her mother and sister are her support system and she is currently staying with her mother due to there are no stairs in the house. Pt states her goal is to possibly transfer to another hospital for debridement and then return home to work on getting a prosthetic leg. Pt states that if the wound on her right heel does not heal, she will not consider amputation under any circumstances. Discussed code status with pt who elects to be DNR, selective treatment.Pt is agreeable to complete advance directives and names her sister as her HCPOA. POLST and HCPOA forms completed, signed and scanned into chart; original and copies provided to pt. Pt denies any need for symptom management at this time. Palliative care will continue to follow. Outcome of the conversation and documents completed (select all that apply): Durable POA form completed and sent to medical records and POLST/TPOPP completed The services provided in this conversation and described in this note are non- billable and to be used for ongoing clinical care only. Zoey Gordon LCSW * Provider Query - Hien Rabago MD - 04/22/2023 9:04 PM CDT Conflicting documentation is present in the medical record. Specify the stage of Chronic Kidney Disease and document in the medical record and on the form below. ___ Chronic Kidney Disease, Stage 3 (Moderate) (GFR 30-59) ___Stage 3a (GFR 45-59) ___Stage 3b (GFR 30-44) ___ Chronic Kidney Disease, Stage 4 (Severe) (GFR 15-29) ___ Other, specify below Additional Provider Response: CKD3b GFR 24 Clinical Indicators/Treatments: Admitted 04/15/23 for Osteomyelitis, CHF Exacerbation and BOBBY on CKD. History: CHF, T2DM, HTN, Left AKA, CKD. Nephrology Consult by Sushma Friedman at 04/15/2023 BOBBY on CKD in the setting of significant volume overload/pulmonary edema Cardiology Consult by Sultan Jina at 04/15/2023 CKD Stage IV H&P by Amilcar Hancock at 04/15/2023 CKD stage 3a Labs 12/12/22 CareEverywhere 02/20/23 23:15 04/15/23 13:41 04/15/23 15:43 04/16/23 07:06 04/17/23 05:10 BUN 19 6 38 40 34 35 Creatinine 1.12 1.30 2.70 2.70 2.50 2.10 eGFR 68 57 24 24 26 32 Treatment: Nephrology consult, Lab monitoring, observation. Chronic Kidney Disease (CKD) Criteria Chronic Kidney Disease (CKD or chronic renal failure) is defined as abnormalities of kidney structure or function, present for >3 months, with implications for health. Criteria: Duration >3 months, based on documentation or inference and GFR <60 ml/min/1.73 m2 or Kidney damage as defined by structural abnormalities or functional abnormalities other than decreased GFR (albuminuria, urinary sediment abnormalities, renal tubular disorders, pathologic abnormalities detected by histology or inferred, structural abnormalities detected by imaging, history of renaltransplant 5 Stages of CKD based on stable baseline GFR Stage GFR 1 >= 90* 2 (mild) 60-89* 3a (mild to moderate) 45-59 3b (moderate to severe) 30-44 4 (severe) 15-29 5 <15 ESRD <15 and requiring chronic dialysis *Stage 1 and 2 cannot be applied unless there is at least one marker of kidney damage. The creatinine level must be stable to adequately diagnose CKD. Use the GFR based on the lowest creatinine level (higher GFR) should be used as the baseline for staging. Historical labs (prior three months) will provide a more reliable GFR on which to base a diagnosis of CKD. If provider believes patient has chronic kidney disease in the absence of above clinical indicators, please document rationale and clinical impression in detail Chronic Kidney Disease References [employer]. 2020. [online] Available at: <https://kdigo.org/wp-content/uploads//[email or web address]_[email or web address]_CKD_GL.pdf> [Accessed 22 August 2020]. Erik Posey. and Marychuy Kim., 2015. 2020 ACDIS Pocket Guide. [employer], a [employer], pp.285-289. [employer]. 2020. [online] Available at: <https://kdigo.org/wp-content/uploads//[email or web address]_CKD_GL.pdf> [Accessed 22 August 2020]. Use of terms such as likely, suspected, possible, or probable (associated with a specific diagnosisthat is being evaluated, monitored, or treated as if it exists) are acceptable and can be coded in the inpatient setting when documented at the time of discharge. This documentation will become part of the patient???s medical record. * Provider Query - Hien Rabago MD - 04/22/2023 9:03 PM CDT Conflicting documentation is present in the medical record. Specify the appropriate diagnosis and document in the medical record and on the form below. Date/Diagnosis/Physician: 04/15/23 / Acute Systolic CHF / Natalie Date/Diagnosis/Physician: 04/16/23 / Acute Diastolic CHF / Gem ___ Acute Systolic CHF ___ Acute Diastolic CHF ___ Other, specify below Additional Provider Response: Acute diastolic CHF Clinical Indicators/Treatments: Admitted 04/15/23 for Osteomyelitis, CHF Exacerbation and BOBBY on CKD. History: CHF, T2DM, HTN, Left AKA, CKD. H&P by Amilcar Hancock at 04/15/2023 Acute CHF--possibility systolic Cardiology Consult by Sultan Jina at 04/16/2023 Acute congestive heart failure. Gross cardiomegaly on x-ray of the chest. May have cardiomyopathy. Also renal insufficiency contributing to the fluid overload. Lasix for decongestion and consultationwith Nephrology. Echo Doppler to assess the left ventricular systolic function. Input 100, output 500. Net balance -400. Progress Note by Hien Rabago at 04/16/2023 Acute diastolic congestive heart failure TRANSTHORACIC ECHO (TTE) 04/16/2023 Interpretation Summary: Normal LV systolic function. EF=60-65%. LA mildly dilated. RA mildly dilated. Mild tricuspid regurgitation. Normal RV systolic function. Estimated RA pressure is ' 10-15' mmHg. Elevated right heart pressures. Mild to moderate pericardial effusion. No echocardiographic indicat ions of cardiac tamponade. Mitral inflow pattern is normal. E/E prime ratio is >15 suggesting a high pulmonary wedge pressure and LV diastolic dysfunction. Labs Latest Reference Range & Units 04/15/23 13:41 04/16/23 07:06 NT-proBNP <=300 pg/mL 13,499 11,534 Treatment: Cardiology consult, Lab Monitoring, IV Lasix, Observation. Use of terms such as likely, suspected, possible, or probable (associated with a specific diagnosisthat is being evaluated, monitored, or treated as if it exists) are acceptable and can be coded in the inpatient setting when documented at the time of discharge. This documentation will become part of the patient???s medical record. * Provider Query - Hien Rabago MD - 04/22/2023 9:02 PM CDT Specify the ulcer or wound and document in the medical record and on the form below. Location and Laterality of the ulcer or wound ___ Right Abdomen, Right Thigh, Right Heel ___ Other ulcer site, specify below Type or Etiology of ulcer or wound ___ Pressure (Decubitus) Ulcer ___ Diabetic Ulcer ___ Traumatic Wound ___ Other, specify below Present on Admission ___ Yes ___ No Additional Provider Response: Pressure ulcer right thigh laterally and right heel, unstageable Present on admission Clinical Indicators/Treatments: Admitted 04/15/23 for Osteomyelitis, CHF Exacerbation and BOBBY on CKD. History: CHF, T2DM, HTN, Left AKA, CKD. Wound RN Consult: 04/16/23 1445 Pressure Ulcer/Pressure Injury 04/15/23 Lower;Right Abdomen Date First Assessed/Time First Assessed: 04/15/23 1414 Present on Hospital Admission: Yes Location Orientation: Lower;Right Location: Abdomen Description Unstageable, full thickness tissue loss. The base of the ulcer is not visible due to slough and/or eschar. Staging Unstageable Dressing/Intervention (medihoney, polymem max and bordered foam) Wound Length (cm) 5 cm Wound Width (cm) 8.7 cm Wound Depth (cm) 0 Slough Covering Wound Bed % 100 Wound Image Available in [facility] Pressure Ulcer/Pressure Injury 04/15/23 Proximal;Right;Lateral Thigh Date First Assessed/Time First Assessed: 04/15/232122 Present on Hospital Admission: Yes Location Orientation: Proximal;Right;Lateral Location: Thigh Description Unstageable, full thickness tissue loss. The base of the ulcer is not visible due to slough and/or eschar. Staging Unstageable Dressing/Intervention (medihoney and bordered foam) Wound Length (cm) 1.9 cm Wound Width (cm) 2.2 cm Wound Depth (cm) 0 Shape Circular Slough Covering Wound Bed % 100 Wound Image Available in [facility] Pressure Ulcer/Pressure Injury 04/15/23 Right Heel Date First Assessed/Time First Assessed: 04/15/23 1414 Present on Hospital Admission: Yes Location Orientation: Right Location: Heel Description Unstageable, full thickness tissue loss. The base of the ulcer is not visible due to slough and/or eschar. Staging Unstageable Dressing/Intervention (medihoney, polymem max, kerlix) Wound Length (cm) 2.1 cm Wound Width (cm) 2.2 cm Wound Depth (cm) 0 Shape Circular Eschar Covering Wound Bed % 100 Wound Image Available in [facility] Treatment: Wound RN consult, wound care, nursing interventions, observation. Use of terms such as likely, suspected, possible, or probable (associated with a specific diagnosisthat is being evaluated, monitored, or treated as if it exists) are acceptable and can be coded in the inpatient setting when documented at the time of discharge. This documentation will become part of the patient???s medical record. * Plan of Care - Brittany Vargas RN - 04/22/2023 8:34 PM CDT Problem: Lack of Knowledge Goal: Knowledge of disease or condition will improve Outcome: Progressing Problem: Lack of Knowledge: Goal: Ability to state ways to decrease the risk of falls will improve Outcome: Progressing Problem: Safety: Goal: Will remain free from falls Outcome: Progressing Goal: Will remain free from injury from falls Outcome: Progressing Goal: Will remain free from falls and injury in home environment Outcome: Progressing Problem: Lack of Knowledge: Goal: Understanding of ways to prevent future skin breakdown will improve Outcome: Progressing Goal: Ability to identify appropriate dietary choices will improve Outcome: Progressing Problem: Nutritional: Goal: Dietary intake will improve Outcome: Progressing Goal: Ability to maintain a balanced intake and output will improve Outcome: Progressing Problem: Skin Integrity: Goal: Risk for impaired skin integrity will decrease Outcome: Progressing Goal: Ability to demonstrate warm and dry skin will improve Outcome: Progressing Goal: Circulation will improve to fullest extent possible Outcome: Progressing Problem: Health Behavior: Goal: Understanding of discharge needs will improve Outcome: Progressing Problem: Lack of Knowledge: Goal: Ability to develop a pain control plan will improve Outcome: Progressing Goal: Ability to identify pain intensity on a pain scale and rate it consistently will improve Outcome: Progressing Goal: Ability to notify healthcare provider of pain before it becomes unmanageable or unbearable will improve Outcome: Progressing Problem: Medication: Goal: Satisfaction with pain management regimen will improve Outcome: Progressing Problem: Sensory: Goal: Ability to identify factors that increase the pain will improve Outcome: Progressing Goal: Pain level will decrease Outcome: Progressing Problem: Activity: Goal: Capacity to carry out activities will improve Outcome: Progressing Problem: Cardiac: Goal: Cardiovascular alteration will improve Outcome: Progressing Goal: Hemodynamic stability will improve Outcome: Progressing Problem: Lack of Knowledge: Goal: Verbalization of understanding the information provided will improve Outcome: Progressing Problem: Fluid Volume: Goal: Risk for excess fluid volume will decrease Outcome: Progressing Problem: Physical Regulation: Goal: Complications related to the disease process, condition or treatment will be avoided or minimized Outcome: Progressing Goal: Diagnostic test results will improve Outcome: Progressing Problem: Respiratory: Goal: Ability to maintain a clear airway will improve Outcome: Progressing Goal: Respiratory status will improve Outcome: Progressing Problem: Safety: Goal: Will remain free from falls Outcome: Progressing * Plan of Care - Cherise Delcid RN - 04/22/2023 2:27 PM CDT Problem: Lack of Knowledge Goal: Knowledge of disease or condition will improve Outcome: Not Progressing Problem: Lack of Knowledge: Goal: Ability to state ways to decrease the risk of falls will improve Outcome: Not Progressing Problem: Activity: Goal: Mobility will improve Outcome: Not Progressing Problem: Lack of Knowledge: Goal: Understanding of ways to prevent future skin breakdown will improve Outcome: Not Progressing Goal: Ability to identify appropriate dietary choices will improve Outcome: Not Progressing Problem: Nutritional: Goal: Dietary intake will improve Outcome: Not Progressing Goal: Ability to maintain a balanced intake and output will improve Outcome: Not Progressing Problem: Skin Integrity: Goal: Risk for impaired skin integrity will decrease Outcome: Not Progressing Goal: Ability to demonstrate warm and dry skin will improve Outcome: Not Progressing Goal: Circulation will improve to fullest extent possible Outcome: Not Progressing Problem: Health Behavior: Goal: Understanding of discharge needs will improve Outcome: Not Progressing Problem: Lack of Knowledge: Goal: Ability to develop a pain control plan will improve Outcome: Not Progressing Goal: Ability to identify pain intensity on a pain scale and rate it consistently will improve Outcome: Not Progressing Goal: Ability to notify healthcare provider of pain before it becomes unmanageable or unbearable will improve Outcome: Not Progressing Problem: Medication: Goal: Satisfaction with pain management regimen will improve Outcome: Not Progressing Problem: Sensory: Goal: Ability to identify factors that increase the pain will improve Outcome: Not Progressing Goal: Pain level will decrease Outcome: Not Progressing Problem: Activity: Goal: Capacity to carry out activities will improve Outcome: Not Progressing Problem: Cardiac: Goal: Cardiovascular alteration will improve Outcome: Not Progressing Goal: Hemodynamic stability will improve Outcome: Not Progressing Problem: Lack of Knowledge: Goal: Verbalization of understanding the information provided will improve Outcome: Not Progressing Problem: Fluid Volume: Goal: Risk for excess fluid volume will decrease Outcome: Not Progressing Problem: Physical Regulation: Goal: Complications related to the disease process, condition or treatment will be avoided or minimized Outcome: Not Progressing Goal: Diagnostic test results will improve Outcome: Not Progressing Problem: Respiratory: Goal: Ability to maintain a clear airway will improve Outcome: Not Progressing Goal: Respiratory status will improve Outcome: Not Progressing Problem: Safety: Goal: Will remain free from falls Outcome: Not Progressing Goals: Wound care * Plan of Care - Arabella Phillips RN - 04/22/2023 3:08 AM CDT Goals: Clinical Goals for the Shift: Pain control keep from fall Problem: Respiratory: Goal: Ability to maintain a clear airway will improve Outcome: Progressing Problem: Fluid Volume: Goal: Risk for excess fluid volume will decrease Outcome: Progressing Problem: Safety: Goal: Will remain free from falls Outcome: Progressing Problem: Cardiac: Goal: Cardiovascular alteration will improve Outcome: Progressing Problem: Skin Integrity: Goal: Risk for impaired skin integrity will decrease Outcome: Progressing * Plan of Care - Cherise Delcid RN - 04/21/2023 2:42 PM CDT Problem: Lack of Knowledge Goal: Knowledge of disease or condition will improve Outcome: Progressing Problem: Lack of Knowledge: Goal: Ability to state ways to decrease the risk of falls will improve Outcome: Progressing Problem: Safety: Goal: Will remain free from falls Outcome: Progressing Goal: Will remain free from injury from falls Outcome: Progressing Goal: Will remain free from falls and injury in home environment Outcome: Progressing Problem: Activity: Goal: Mobility will improve Outcome: Progressing Problem: Lack of Knowledge: Goal: Understanding of ways to prevent future skin breakdown will improve Outcome: Progressing Goal: Ability to identify appropriate dietary choices will improve Outcome: Progressing Problem: Nutritional: Goal: Dietary intake will improve Outcome: Progressing Goal: Ability to maintain a balanced intake and output will improve Outcome: Progressing Problem: Skin Integrity: Goal: Risk for impaired skin integrity will decrease Outcome: Progressing Goal: Ability to demonstrate warm and dry skin will improve Outcome: Progressing Goal: Circulation will improve to fullest extent possible Outcome: Progressing Problem: Health Behavior: Goal: Understanding of discharge needs will improve Outcome: Progressing Problem: Lack of Knowledge: Goal: Ability to develop a pain control plan will improve Outcome: Progressing Goal: Ability to identify pain intensity on a pain scale and rate it consistently will improve Outcome: Progressing Goal: Ability to notify healthcare provider of pain before it becomes unmanageable or unbearable will improve Outcome: Progressing Problem: Medication: Goal: Satisfaction with pain management regimen will improve Outcome: Progressing Problem: Sensory: Goal: Ability to identify factors that increase the pain will improve Outcome: Progressing Goal: Pain level will decrease Outcome: Progressing * Plan of Care - Eunice Ferguson RN - 04/21/2023 4:14 AM CDT End of Shift Summary: Patient encouraged to turn every 2 hours. Large loose bowel movement last night. Nicole care and fortune care provided. Excoriation noted to perineal area. Barrier cream applied. Patient denies pain or shortness of breath. SpO2 within normal limits on 4 liters of oxygen. Sinus rhythm on monitoring tech. Dressings changed yesterday to right thigh, abdomen, and heel are dry and intact. Right heel wound malodorous. Fortune still draining copious amounts of clear yellow urine. Diuresing well. No acute events this shift. Goals: Prevent sepsis. Summary: Problem: Lack of Knowledge Goal: Knowledge of disease or condition will improve Outcome: Progressing Problem: Lack of Knowledge: Goal: Ability to state ways to decrease the risk of falls will improve Outcome: Progressing Problem: Safety: Goal: Will remain free from falls Outcome: Progressing Goal: Will remain free from injury from falls Outcome: Progressing Goal: Will remain free from falls and injury in home environment Outcome: Progressing Problem: Activity: Goal: Mobility will improve Outcome: Progressing Problem: Lack of Knowledge: Goal: Understanding of ways to prevent future skin breakdown will improve Outcome: Progressing Goal: Ability to identify appropriate dietary choices will improve Outcome: Progressing Problem: Nutritional: Goal: Dietary intake will improve Outcome: Progressing Goal: Ability to maintain a balanced intake and output will improve Outcome: Progressing Problem: Skin Integrity: Goal: Risk for impaired skin integrity will decrease Outcome: Progressing Goal: Ability to demonstrate warm and dry skin will improve Outcome: Progressing Goal: Circulation will improve to fullest extent possible Outcome: Progressing Problem: Health Behavior: Goal: Understanding of discharge needs will improve Outcome: Progressing Problem: Lack of Knowledge: Goal: Ability to develop a pain control plan will improve Outcome: Progressing Goal: Ability to identify pain intensity on a pain scale and rate it consistently will improve Outcome: Progressing Goal: Ability to notify healthcare provider of pain before it becomes unmanageable or unbearable will improve Outcome: Progressing Problem: Medication: Goal: Satisfaction with pain management regimen will improve Outcome: Progressing Problem: Sensory: Goal: Ability to identify factors that increase the pain will improve Outcome: Progressing Goal: Pain level will decrease Outcome: Progressing * Plan of Care - Eunice Ferguson RN - 04/20/2023 4:59 AM CDT End of Shift Summary: Dressings to right heel, right abdomen, and right lateral thigh changed. Areas thoroughly cleansed. Right heel draining thick, purulent, foul-smelling drainage. Patient given soap and water bath at beginning of shift. Diarrhea X1 incontinently. Fortune draining clear yellow urine in copious amounts. Denies pain when asked. Turned every 2 hours. Prevalon boot in place to right f oot. Sinus rhythm on monitoring tech. No acute events this shift. Goals: Avoid sepsis. Summary: Problem: Lack of Knowledge Goal: Knowledge of disease or condition will improve 04/20/2023458 by Eunice Ferguson RN Outcome: Progressing 04/20/2023458 by Eunice Ferguson RN Outcome: Progressing Problem: Lack of Knowledge: Goal: Ability to state ways to decrease the risk of falls will improve 04/20/2023458 by Eunice Ferguson RN Outcome: Progressing 04/20/2023458 by Eunice Ferguson RN Outcome: Progressing Problem: Safety: Goal: Will remain free from falls 04/20/2023458 by Eunice Ferguson RN Outcome: Progressing 04/20/2023458 by Airhart, Eunice N., RN Outcome: Progressing Goal: Will remain free from injury from falls 04/20/2023458 by Eunice Ferguson RN Outcome: Progressing 04/20/2023458 by Eunice Ferguson RN Outcome: Progressing Goal: Will remain free from falls and injury in home environment 04/20/2023458 by Eunice Ferguson, RN Outcome: Progressing 04/20/2023458 by Eunice Ferguson, RN Outcome: Progressing Problem: Activity: Goal: Mobility will improve 04/20/2023458 by Eunice Ferguson RN Outcome: Progressing 04/20/2023458 by Eunice Ferguson RN Outcome: Progressing Problem: Lack of Knowledge: Goal: Understanding of ways to prevent future skin breakdown will improve 04/20/2023458 by Eunice Ferguson RN Outcome: Progressing 04/20/2023458 by Eunice Ferguson RN Outcome: Progressing Goal: Ability to identify appropriate dietary choices will improve 04/20/2023458 by Eunice Ferguson RN Outcome: Progressing 04/20/2023458 by Eunice Ferguson RN Outcome: Progressing Problem: Nutritional: Goal: Dietary intake will improve 04/20/2023458 by Eunice Ferguson RN Outcome: Progressing 04/20/2023458 by Eunice Ferguson, RN Outcome: Progressing Goal: Ability to maintain a balanced intake and output will improve 04/20/2023458 by Eunice Ferguson, RN Outcome: Progressing 04/20/2023458 by Eunice Ferguson RN Outcome: Progressing Problem: Skin Integrity: Goal: Risk for impaired skin integrity will decrease 04/20/2023458 by Eunice Ferguson, RN Outcome: Progressing 04/20/2023458 by Eunice Ferguson, RN Outcome: Progressing Goal: Ability to demonstrate warm and dry skin will improve 04/20/2023458 by Eunice Ferguson RN Outcome: Progressing 04/20/2023458 by Eunice Ferguson RN Outcome: Progressing Goal: Circulation will improve to fullest extent possible 04/20/2023458 by Eunice Ferguson RN Outcome: Progressing 04/20/2023458 by Eunice Ferguson RN Outcome: Progressing Problem: Health Behavior: Goal: Understanding of discharge needs will improve 04/20/2023458 by Eunice Ferguson RN Outcome: Progressing 04/20/2023458 by Eunice Ferguson RN Outcome: Progressing Problem: Lack of Knowledge: Goal: Ability to develop a pain control plan will improve 04/20/2023458 by Eunice Ferguson RN Outcome: Progressing 04/20/2023458 by Eunice Ferguson RN Outcome: Progressing Goal: Ability to identify pain intensity on a pain scale and rate it consistently will improve 04/20/2023458 by Eunice Ferguson RN Outcome: Progressing 04/20/2023458 by Eunice Ferguson RN Outcome: Progressing Goal: Ability to notify healthcare provider of pain before it becomes unmanageable or unbearable will improve Outcome: Progressing Problem: Medication: Goal: Satisfaction with pain management regimen will improve Outcome: Progressing Problem: Sensory: Goal: Ability to identify factors that increase the pain will improve Outcome: Progressing Goal: Pain level will decrease Outcome: Progressing * Plan of Care - Cuca Krause RN - 04/19/2023 11:10 AM CDT Care Management Weekly Progression of Care Review Pt originally admitted for Shortness of breath [R06.02] Respiratory insufficiency [R06.89] Abdominal pannus [E65] Chronic wound infection of abdomen, initial encounter [S31.109A, L08.9] Heel ulceration, right, with unspecified severity (HCC) [L97.419] Diabetes mellitus with coincident hypertension (HCC) [E11.9, I10] Acute renal failure superimposed on chronic kidney disease, unspecified CKD stage, unspecified acute renal failure type (HCC) [N17.9, N18.9] Acute on chronic congestive heart failure, unspecified heart failure type (HCC) [I50.9] PCP: Cherise Patrick PA Current Plan of Care Includes: Treatment continued for right diabetic foot infection with early signs of osteo. Currently on IV Rocephin, PO Flagyl, and IV Daptomycin day 5. Vascular surgery recommending AKA, but according to notes, patient declined. Podiatry has been consulted for evaluation of the need for debridement of necrotic ulcer on right heel. Still requiring supplemental oxygen. 80mg IVLasix BID continued. PT/OT Recommendations: Evaluation Pending Anticipate Discharge Plan/Needs: LTAC vs Home with HHC and IV infusion. Patient prefers LTAC. RF TEST TECHNICIAN working on placement. Expected Discharge Date: TBD- pending podiatry recommendations, final abx recommendations, and obtaining insurance auth. Cuca Krause RN 04/19/2023 11:10 AM * Plan of Care - Keara Up RN - 04/19/2023 2:12 AM CDT Goals: Comfort, safety and rest. Problem: Safety: Goal: Will remain free from falls Outcome: Progressing Problem: Safety: Goal: Will remain free from injury from falls Outcome: Progressing Problem: Skin Integrity: Goal: Risk for impaired skin integrity will decrease Outcome: Progressing Problem: Lack of Knowledge: Goal: Ability to develop a pain control plan will improve Outcome: Progressing Problem: Lack of Knowledge: Goal: Ability to identify pain intensity on a pain scale and rate it consistently will improve Outcome: Progressing Problem: Lack of Knowledge: Goal: Ability to notify healthcare provider of pain before it becomes unmanageable or unbearable will improve Outcome: Progressing Problem: Medication: Goal: Satisfaction with pain management regimen will improve Outcome: Progressing Problem: Sensory: Goal: Ability to identify factors that increase the pain will improve Outcome: Progressing Problem: Sensory: Goal: Pain level will decrease Outcome: Progressing -This shift: -Wound care: wounds assessed; dressings remain in place, (R heel, R lower abdomen, R thigh, sacrum); awaiting podiatry consult -Tolerating diet: appetite decreased; pt has no c/o GI upset or n/v -Adequate urine output: yes; fortune catheter remain in place per order. Total output = 2350 mL this shift -BM this shift: no; LBM 04/19/23 -Activity: bed bound -Pain control: pt denies pain this shift -Free from falls: yes; pt remain on fall precautions with bed alarm on -Shift events: none Summary: A&Ox4, VSS, pt remain on 4 L O2 via NC, BG wdl, pt slept throughout the night. Will continue to monitor. * Plan of Care - Huma Mccollum - 04/18/2023 1:01 PM CDT Referral received. Patient insurance is out of network with [facility] and . Referral sent to [facility] to manage. Huma/Ana Cristina Mccollum automatic machine attendantLoom Mechanic, [facility] home care [phone] * Plan of Care - Jyoti Marrero RN - 04/17/2023 12:04 AM CDT Problem: Lack of Knowledge Goal: Knowledge of disease or condition will improve Outcome: Progressing Problem: Lack of Knowledge: Goal: Ability to state ways to decrease the risk of falls will improve Outcome: Progressing Problem: Safety: Goal: Will remain free from falls Outcome: Progressing Goal: Will remain free from injury from falls Outcome: Progressing Problem: Skin Integrity: Goal: Risk for impaired skin integrity will decrease Outcome: Progressing Problem: Health Behavior: Goal: Understanding of discharge needs will improve Outcome: Progressing Goals: Summary: * Initial Assessments - Cuca Krause RN - 04/16/2023 12:20 PM CDT JEAN Initial Assessment Interview Note Information Obtained From: Patient (04/16/23 1217) Admission Source: Emergency Impression: Patient presented to the ED with c/o SOB [id number]. [facility] nurse came out to address patients foot wound and found patient to be hypoxic. Plan Includes: Nephrology, Cardiology, Pulmonology, ID, and Vascular Surgery were consulted. Wound nurse consult. IV abx. Supplemental oxygen. ECHO. IV Lasix. Prior to admission patient lived at home with mother and step father. Patient reports that her family all works and she needs more help when they are away. Patient agreeable to DORs referral being placed. Patient is current with [facility] for nursing but is unsure which company. [facility] 1st visit was on day of admission to hospital. Patient requesting a private duty caregiver list. Patient also reported sleeping on an air mattress at home and wanted information on how to obtain a hospital bed. Patient will return home at d/c. HHC will be needed. Patients step-father, Albin, will provide transportation. Primary Source of Transportation: Does the patient need discharge transport arranged?: No (Patients step dad will transport at d/c) (04/16/231216) Health Insurance Coverage: Primary Coverage Payor Plan Insurance Group Employer/Plan Group [facility] [id number] Payor Plan Address Payor Plan Phone Number Payor Plan Fax Number Effective Dates [address] 11/03/2022 - None Entered [place] [id number] Subscriber Name Subscriber Date Member ID LEEROY CANALES 1990 [id number] Prescription Coverage: yes Pharmacy:[facility] [address] [place] [address] Primary Care Provider: Cherise Patrick PA Prior to Admission: Functional Status: Moderate assist with ADLs Primary Caregiver: Family Who does the patient or legal guardian want to receive education instruction and discharge plans for after care assistance?: Name Caregiver Name: Suellen Relationship to patient: Mother Support System: Parent, Family members Support system contact info (name, phone, availablity): Suellen, Mother Albin, Step-dad, and brother Home Care Services: Yes Type of Home Care Services: Nurse visit (Patient was unsure of the agency) Durable Medical Equipment: Wheelchair, Bedside commode Living Arrangements: Parent Type of Residence: Private residence Steps in home?: No steps inside or outside (04/16/23 1217) SDOH: Transportation: In the past 12 months, has lack of transportation kept you from medical appointments or from getting medications?: No In the past 12 months, has lack of transportation kept you from meetings, work, or from getting things needed for daily living?: No (04/16/231116) Financial Resource: How hard is it for you to pay for the very basics like food, housing, medical care, and heating?: Not hard at all (04/16/231116) Housing: In the last 12 months, was there a time when you were not able to pay the mortgage or rent on time?: No In the last 12 months, was there a time when you did not have a steady place to sleep or slept in ashelter (including now)?: No (04/16/231212) Social Connections: In a typical week, how many times do you talk on the phone with family, friends, or neighbors?: Never How often do you get together with friends or relatives?: Never How often do you attend congregation or voodoo services?: Never Do you belong to any clubs or organizations such as congregation groups, unions, fraternal or athletic groups, or school groups?: No How often do you attend meetings of the clubs or organizations you belong to?: Never Are you , , , , never , or living with a partner?: Never (04/16/231116) Food Insecurity: Within the past 12 months, you worried that your food would run out before you got the money to buymore.: Never true Within the past 12 months, the food you bought just didn't last and you didn't have money to get more.: Never true (04/16/231111) Potential discharge needs include: Home Health: [facility], Occupational therapy, Physical therapy, Other (Comment) (child welfare social worker) Community Resources: Homemaker services, Other (Comment) (Private Caregiver information) (04/16/231216) Behavioral Health Services: Behavioral Health Services: No (04/16/231216) Patient expects to be Discharged to: Private residence, (04/16/231216) Patient's Identified Problem/Goal Problem: Ensure acute medical needs are met and that patient has a safe discharge plan. Goal: Secure a discharge plan that patient/family are agreeable with and ensure patient has continuum of care. Case management will follow for discharge planning and send referrals as needed. Cuca Krause RN * Plan of Care - Milagro Du RN - 04/16/2023 9:46 AM CDT Problem: Lack of Knowledge Goal: Knowledge of disease or condition will improve Outcome: Progressing Problem: Lack of Knowledge: Goal: Ability to state ways to decrease the risk of falls will improve Outcome: Progressing Problem: Safety: Goal: Will remain free from falls Outcome: Progressing Goal: Will remain free from injury from falls Outcome: Progressing Goal: Will remain free from falls and injury in home environment Outcome: Progressing Problem: Activity: Goal: Mobility will improve Outcome: Progressing Problem: Lack of Knowledge: Goal: Understanding of ways to prevent future skin breakdown will improve Outcome: Progressing Goal: Ability to identify appropriate dietary choices will improve Outcome: Progressing Problem: Nutritional: Goal: Dietary intake will improve Outcome: Progressing Goal: Ability to maintain a balanced intake and output will improve Outcome: Progressing Problem: Skin Integrity: Goal: Risk for impaired skin integrity will decrease Outcome: Progressing Goal: Ability to demonstrate warm and dry skin will improve Outcome: Progressing Goal: Circulation will improve to fullest extent possible Outcome: Progressing Problem: Health Behavior: Goal: Understanding of discharge needs will improve Outcome: Progressing Goals: Summary: Patient progressing with care plan. Medications given, call light within reach, and no complaints of pain at this time * Plan of Care - Jyoti Marrero RN - 04/16/2023 5:10 AM CDT Problem: Lack of Knowledge Goal: Knowledge of disease or condition will improve Outcome: Progressing Problem: Lack of Knowledge: Goal: Ability to state ways to decrease the risk of falls will improve Outcome: Progressing Problem: Safety: Goal: Will remain free from falls Outcome: Progressing Goal: Will remain free from injury from falls Outcome: Progressing Problem: Activity: Goal: Mobility will improve Outcome: Progressing Problem: Lack of Knowledge: Goal: Understanding of ways to prevent future skin breakdown will improve Outcome: Progressing Problem: Nutritional: Goal: Dietary intake will improve Outcome: Progressing Problem: Skin Integrity: Goal: Risk for impaired skin integrity will decrease Outcome: Progressing Goals: Summary: * Significant Event - Amilcar Hancock MD - 04/15/2023 5:54 PM CDT This is an attestation note to the H&P to be completed by PA. The patient was seen and examined independently of PA. HPI: Patient presented to the hospital increasing dyspnea Specially orthopnea for about a month. She also was noted to have a wound on the right foot. She had left below-knee amputation for ???infection ???in December 2022 She also has right-sided abdominal wounds that is noted for about a week Past Medical history: Significant for CKD stage 3, type 2 diabetes mellitus History of heart attack. No history of heart failure. Had left below-knee amputation done at [facility] earlier this year Lives at home with her mom On examination: Patient appears comfortable with 2 L nasal cannula. Chest bibasilar crackles. CVS S1-S2 normal no murmurs rubs gallops Extremities: Left BKA. Right foot plantar ulcer at the heel with slough Feeble pulses Edema, 4+ anasarca Labs/imaging: Creatinine 2.7 previous creatinine in February 2023 was 1.3. Albumin is 1.8. White bloodcell counts 32. ABG shows PO2 of 49. Chest x-ray shows cardiomegaly and pulmonary edema. Right foot x-ray shows osteomyelitis Assessment 1. Acute respiratory failure with hypoxia 2. Acute pulmonary edema cardiogenic 3. Acute CHF possibility systolic 4. Acute osteomyelitis of the right foot calcaneum Cellulitis and soft tissue infection right foot Diabetic foot 5. Type 2 diabetes mellitus with hyperglycemia 6. Acute kidney injury on chronic kidney disease stage 3 a Diabetic nephropathy 7. Possible peripheral vascular disease 8. Abdominal wall infection panniculitis Plan -patient is clearly volume overloaded. Will start IV diuresis with Lasix. Rule out urinary retention. Nephrology consulted for BOBBY on CKD. -for pulmonary edema IV Lasix will help. 2D echo pending. Cardiology consulted. Cause of respiratory failure with hypoxia is pulmonary edema. Try to wean off fluids continue diuresis. Doubt pneumonia. Pulmonary consult -patient has acute osteomyelitis of the right calcaneum will start broad- spectrum antibiotics also has panniculitis Will start vancomycin and cefepime. She is high-risk for Pseudomonas. Id consult and vascular surgery consult. Will get Dopplers. * Significant Event - Eleanor Austin PACKAGE SEALER - 04/15/2023 2:00 PM CDT 04/15/23 1350 ABG Modified Alf's Test #1 Positive - Collateral flow determined Site #1 Right radial Specimen Status #1 To lab O2 Therapy None (Room air) Patient Tolerance of ABG's Tolerated well Critical results called to JIMMIE Ram [id number] at 1358 Latest Reference Range & Units 04/15/23 13:50 Sodium, Whole Blood 135 - 145 mmol/L 135 Potassium, bld 3.3 - 4.9 mmol/L 3.9 Glucose, bld 70 - 199 mg/dL 199 Ca, ionized, bld 4.45 - 5.25 mg/dL 4.76 Lactate, bld 0.7 - 2.0 mmol/L 0.7 pH, Art 7.35 - 7.45 7.40 PCO2, Arterial 35 - 45 mmHg 36 PO2, Arterial 83 - 108 mmHg 49 !! O2 Sat Art (Measured) 90 - 95 % 78 (L) HCO3 Art (Calculated) 20 - 30 mmol/L 22 Base excess arterial mmol/L -2 Carboxyhemoglobin, arterial 0.0 - 2.9 % 1.7 Hemoglobin, Total, Arterial 11.9 - 15.5 g/dL 8.5 (L) !!: Data is critical (L): Data is abnormally low documented in this encounter Plan of Treatment Upcoming Encounters Date Type Department Care Team (Latest Contact Info) Description 01/10/2025 10:30 AM CDT Hospital Encounter [facility] [address] [place] [address] Bita Vega MD [address] [place] [address] 01/10/2025 10:30 AM CDT - 01/10/2025 11:15 AM CDT Surgery [facility] ([facility]) [facility] [place] [address] Bita Vega MD [address] [place] [address] EXTRACTION CATARACT - PHACOEMULSIFICATION AND LENS IMPLANT Pending Results Name Type Priority Associated Diagnoses Date /Time Troponin T high-sensitivity 2-hour Lab Routine 04/15/2023 3:43 PM CDT Creatine kinase (CK), total Lab Routine 04/15/2023 3:43 PM CDT Creatine kinase (CK), total Lab Routine 04/16/2023 7:06 AM CDT Pro B-type natriuretic peptide Lab Routine 04/22/2023 6:25 AM CDT Scheduled Orders Name Type Priority Associated Diagnoses Orde r Schedule Troponin T high-sensitivity 2-hour Lab Routine Once for 1 Occurrences starting 04/15/2023 until 04/15/2023 Creatine kinase (CK), total Lab Routine Once for 1 Occur rences starting 04/15/2023 until 04/15/2023 Creatine kinase (CK), total Lab Routine Once for 1 Occur rences starting 04/16/2023 until 04/16/2023 Pro B-type natriuretic peptide Lab Routine Once for 1 Occur rences starting 04/22/2023 until 04/22/2023 Scheduled Procedures Name Priority Associated Diagnoses Date/Ti me EXTRACTION CATARACT - PHACOEMULSIFICATION AND LENS IMPLANT 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 01/10/2025 10:30 AM CDT documented as of this encounter Procedures Procedure Name Priority Date/Time Associated Diagnosis Comments POCT GLUCOSE DEVICE Routine 04/25/2023 8:14 PM CDT POCT GLUCOSE DEVICE Routine 04/25/2023 4:02 PM CDT POCT GLUCOSE DEVICE Routine 04/25/2023 10:57 AM CDT EGFR Routine 04/25/2023 8:33 AM CDT EGFR Timed 04/25/2023 8:33 AM CDT DIFFERENTIAL AUTO Timed 04/25/2023 8:33 AM CDT PRO B-TYPE NATRIURETIC PEPTIDE Routine 0 04/25/2023 8:33 AM CDT CBC WITH AUTO DIFFERENTIAL Timed 04/25 8:33 AM CDT PHOSPHORUS Routine 04/25/2023 8:33 AM CDT MAGNESIUM Routine 04/25/2023 8:33 AM CDT CREATINE KINASE (CK), TOTAL Timed 04/04 8:33 AM CDT COMPREHENSIVE METABOLIC PANEL Timed 8:33 AM CDT COMPREHENSIVE METABOLIC PANEL Routine 8:33 AM CDT POCT GLUCOSE DEVICE Routine 04/25/2023 7:24 AM CDT DIFFERENTIAL AUTO Timed 04/24/2023 8:35 PM CDT CBC WITH AUTO DIFFERENTIAL Timed 04/24 8:35 PM CDT POCT GLUCOSE DEVICE Routine 04/24/2023 8:03 PM CDT POCT GLUCOSE DEVICE Routine 04/24/2023 4:13 PM CDT POCT GLUCOSE DEVICE Routine 04/24/2023 11:30 AM CDT SURGICAL PATHOLOGY Routine 04/24/2023 10:00 AM CDT Rectal bleed SIGMOID BIOPSY 04/24/2023 9:50 AM CDT Rectal bleed ESOPHAGOGASTRODUODENOSCOPY 04/24 9:50 AM CDT Rectal bleed EGD 04/24/2023 9:12 AM CDT FLEXIBLE SIGMOIDOSCOPY 9:12 AM CDT DIFFERENTIAL AUTO Timed 04/24/2023 7:58 AM CDT CBC WITH AUTO DIFFERENTIAL Timed 04/24 7:58 AM CDT POCT GLUCOSE DEVICE Routine 04/24/2023 7:39 AM CDT EGFR Routine 04/24/2023 6:20 AM CDT PHOSPHORUS Routine 04/24/2023 6:20 AM CDT MAGNESIUM Routine 04/24/2023 6:20 AM CDT COMPREHENSIVE METABOLIC PANEL Routine 6:20 AM CDT PEP THERAPY Routine 04/24/2023 6:00 AM CDT PEP THERAPY Routine 04/24/2023 12:00 AM CDT DIFFERENTIAL AUTO Timed 04/23/2023 9:44 PM CDT CBC WITH AUTO DIFFERENTIAL Timed 04/23 9:44 PM CDT POCT GLUCOSE DEVICE Routine 04/23/2023 7:09 PM CDT POCT GLUCOSE DEVICE Routine 04/23/2023 3:48 PM CDT POCT GLUCOSE DEVICE Routine 04/23/2023 12:07 PM CDT DIFFERENTIAL AUTO Routine 04/23/2023 10:51 AM CDT CBC WITH AUTO DIFFERENTIAL Routine 04/23 10:51 AM CDT CREATINE KINASE (CK), TOTAL Routine 04/04 10:51 AM CDT EGFR Routine 04/23/2023 9:23 AM CDT DIFFERENTIAL AUTO Timed 04/23/2023 9:23 AM CDT CBC WITH AUTO DIFFERENTIAL Timed 04/23 9:23 AM CDT PHOSPHORUS Routine 04/23/2023 9:23 AM CDT MAGNESIUM Routine 04/23/2023 9:23 AM CDT COMPREHENSIVE METABOLIC PANEL Routine 9:23 AM CDT NM GI BLEED STUDY ED Urgent/IP Urgent 04/23/2023 9:13 AM CDT HCG, BLOOD, QUANTITATIVE STAT 023 8:07 PM CDT POCT GLUCOSE DEVICE Routine 04/22/2023 7:22 PM CDT GUAIAC OCCULT BLOOD, FECAL, NOT FOR NEOPLASM SCREENING STAT 04/22/2023 6:00 PM CDT POCT GLUCOSE DEVICE Routine 04/22/2023 3:38 PM CDT POCT GLUCOSE DEVICE Routine 04/22/2023 1:07 PM CDT POCT GLUCOSE DEVICE Routine 04/22/2023 11:47 AM CDT POCT GLUCOSE DEVICE Routine 04/22/2023 7:35 AM CDT XR CHEST 1 VIEW IP Routine 04/22/2023 6:37 AM CDT EGFR Routine 04/22/2023 6:25 AM CDT DIFFERENTIAL AUTO Routine 04/22/2023 6:25 AM CDT PRO B-TYPE NATRIURETIC PEPTIDE Routine 0 04/22/2023 6:25 AM CDT CBC WITH AUTO DIFFERENTIAL Routine 04/22 6:25 AM CDT CRP (ACUTE PHASE) Routine 04/22/2023 6:25 AM CDT PHOSPHORUS Routine 04/22/2023 6:25 AM CDT MAGNESIUM Routine 04/22/2023 6:25 AM CDT COMPREHENSIVE METABOLIC PANEL Routine 6:25 AM CDT POCT GLUCOSE DEVICE Routine 04/21/2023 8:35 PM CDT POCT GLUCOSE DEVICE Routine 04/21/2023 7:38 PM CDT POCT GLUCOSE DEVICE Routine 04/21/2023 3:56 PM CDT EGFR Routine 04/21/2023 10:54 AM CDT DIFFERENTIAL AUTO Routine 04/21/2023 10:54 AM CDT PROCALCITONIN Routine 04/21/2023 10:54 AM CDT PRO B-TYPE NATRIURETIC PEPTIDE Routine 0 04/21/2023 10:54 AM CDT CBC WITH AUTO DIFFERENTIAL Routine 04/21 10:54 AM CDT PHOSPHORUS Routine 04/21/2023 10:54 AM CDT MAGNESIUM Routine 04/21/2023 10:54 AM CDT COMPREHENSIVE METABOLIC PANEL Routine 10:54 AM CDT POCT GLUCOSE DEVICE Routine 04/21/2023 10:47 AM CDT POCT GLUCOSE DEVICE Routine 04/21/2023 7:39 AM CDT POCT GLUCOSE DEVICE Routine 04/20/2023 7:33 PM CDT POCT GLUCOSE DEVICE Routine 04/20/2023 4:08 PM CDT NM PULMONARY PERFUSION IMAGING IP Routine 0 04/20/2023 2:17 PM CDT XR CHEST 1 VIEW Timed 04/20/2023 1:26 PM CDT POCT GLUCOSE DEVICE Routine 04/20/2023 11:12 AM CDT POCT GLUCOSE DEVICE Routine 04/20/2023 7:27 AM CDT EGFR Routine 04/20/2023 7:08 AM CDT DIFFERENTIAL AUTO Routine 04/20/2023 7:08 AM CDT CBC WITH AUTO DIFFERENTIAL Routine 04/20 7:08 AM CDT PHOSPHORUS Routine 04/20/2023 7:08 AM CDT MAGNESIUM Routine 04/20/2023 7:08 AM CDT COMPREHENSIVE METABOLIC PANEL Routine 7:08 AM CDT POCT GLUCOSE DEVICE Routine 04/19/2023 9:48 PM CDT POCT GLUCOSE DEVICE Routine 04/19/2023 4:15 PM CDT D-DIMER, QUANTITATIVE Routine 04/19/2023 2:36 PM CDT ECG 12-LEAD Routine 04/19/2023 2:15 PM CDT POCT GLUCOSE DEVICE Routine 04/19/2023 11:25 AM CDT POCT GLUCOSE DEVICE Routine 04/19/2023 7:49 AM CDT EGFR Routine 04/19/2023 7:44 AM CDT DIFFERENTIAL AUTO Routine 04/19/2023 7:44 AM CDT CBC WITH AUTO DIFFERENTIAL Routine 04/19 7:44 AM CDT PHOSPHORUS Routine 04/19/2023 7:44 AM CDT MAGNESIUM Routine 04/19/2023 7:44 AM CDT COMPREHENSIVE METABOLIC PANEL Routine 7:44 AM CDT XR CHEST 1 VIEW IP Routine 04/19/2023 5:35 AM CDT POCT GLUCOSE DEVICE Routine 04/18/2023 7:31 PM CDT ECG 12-LEAD Routine 04/18/2023 5:02 PM CDT POCT GLUCOSE DEVICE Routine 04/18/2023 4:26 PM CDT POCT GLUCOSE DEVICE Routine 04/18/2023 11:29 AM CDT POCT GLUCOSE DEVICE Routine 04/18/2023 7:18 AM CDT EGFR Routine 04/18/2023 6:46 AM CDT DIFFERENTIAL AUTO Routine 04/18/2023 6:46 AM CDT CBC WITH AUTO DIFFERENTIAL Routine 04/18 6:46 AM CDT PHOSPHORUS Routine 04/18/2023 6:46 AM CDT MAGNESIUM Routine 04/18/2023 6:46 AM CDT CREATINE KINASE (CK), TOTAL Timed 04/03 6:46 AM CDT COMPREHENSIVE METABOLIC PANEL Routine 6:46 AM CDT POCT GLUCOSE DEVICE Routine 04/17/2023 7:31 PM CDT PROTEIN / CREATININE RATIO, URINE, RANDOM Routine 04/17/2023 4:23 PM CDT ALBUMIN CREATININE RATIO, URINE Routine 04/17/2023 4:23 PM CDT POCT GLUCOSE DEVICE Routine 04/17/2023 3:39 PM CDT LIPID PANEL Routine 04/17/2023 1:03 PM CDT POCT GLUCOSE DEVICE Routine 04/17/2023 10:35 AM CDT XR CHEST 1 VIEW IP Routine 04/17/2023 9:15 AM CDT POCT GLUCOSE DEVICE Routine 04/17/2023 7:48 AM CDT EGFR Routine 04/17/2023 5:10 AM CDT DIFFERENTIAL AUTO Routine 04/17/2023 5:10 AM CDT CBC WITH AUTO DIFFERENTIAL Routine 04/17 5:10 AM CDT VITAMIN D 25 HYDROXY Routine 04/17/2023 5:10 AM CDT PHOSPHORUS Routine 04/17/2023 5:10 AM CDT MAGNESIUM Routine 04/17/2023 5:10 AM CDT COMPREHENSIVE METABOLIC PANEL Routine 5:10 AM CDT STOOL CULTURE STAT 04/16/2023 10:51 PM CDT POCT GLUCOSE DEVICE Routine 04/16/2023 7:45 PM CDT POCT GLUCOSE DEVICE Routine 04/16/2023 4:53 PM CDT IRON PROFILE W/ IBC Routine 04/16/2023 3:37 PM CDT FOLATE Routine 04/16/2023 3:37 PM CDT VITAMIN B12 Routine 04/16/2023 3:37 PM CDT US KIDNEY COMPLETE IP Routine 04/16/2023 1:16 PM CDT POCT GLUCOSE DEVICE Routine 04/16/2023 12:32 PM CDT US ARTERIAL DOPPLER LOWER EXTREMITY BILATERAL IP Routine 04/16/2023 12:19 PM CDT TRANSTHORACIC ECHO (TTE) COMPLETE W DOPPLER/CF W CONTRAST Routine 04/16/2023 10:47 AM CDT MRSA ONLY (STAPHYLOCOCCUS AUREUS) PCR Routine 04/16/2023 10:16 AM CDT POCT GLUCOSE DEVICE Routine 04/16/2023 7:34 AM CDT EGFR Routine 04/16/2023 7:06 AM CDT DIFFERENTIAL AUTO Routine 04/16/2023 7:06 AM CDT PROCALCITONIN Routine 04/16/2023 7:06 AM CDT PRO B-TYPE NATRIURETIC PEPTIDE Routine 0 04/16/2023 7:06 AM CDT THYROID FUNCTION CASCADE Routine 023 7:06 AM CDT CBC WITH AUTO DIFFERENTIAL Routine 04/16 7:06 AM CDT HEMOGLOBIN A1C Routine 04/16/2023 7:06 AM CDT CREATINE KINASE (CK), TOTAL Routine 04/03 7:06 AM CDT COMPREHENSIVE METABOLIC PANEL Routine 7:06 AM CDT URINALYSIS AND REFLEX TO MICROSCOPIC AND CULTURE Routine 04/16/2023 4:23 AM CDT PROTEIN / CREATININE RATIO, URINE, RANDOM Routine 04/16/2023 4:23 AM CDT URINALYSIS, MICROSCOPIC ONLY Routine 4:23 AM CDT TROPONIN T HIGH-SENSITIVITY 6-HOUR Timed 04/15/2023 8:51 PM CDT POCT GLUCOSE DEVICE Routine 04/15/2023 7:56 PM CDT AEROBIC AND ANAEROBIC CULTUR E AND GRAM STAIN Routine 04/15/2023 6:26 PM CDT TROPONIN T HIGH-SENSITIVITY 4-HR Timed 04/15/2023 5:37 PM CDT AEROBIC AND ANAEROBIC CULTUR E AND GRAM STAIN Routine 04/15/2023 5:37 PM CDT INFLUENZA A/B, RSV, AND COVID-19 PCR Routine 04/15/2023 4:52 PM CDT NM PULMONARY PERFUSION IMAGING ED 0 04/15/2023 4:19 PM CDT TROPONIN T HIGH-SENSITIVITY 2-HOUR Routine 04/15/2023 3:43 PM CDT EGFR Routine 04/15/2023 3:43 PM CDT CREATINE KINASE (CK), TOTAL Routine 04/03 3:43 PM CDT BASIC METABOLIC PANEL Routine 04/15/2023 3:43 PM CDT BLOOD CULTURE STAT 04/15/2023 2:46 PM CDT BLOOD CULTURE STAT 04/15/2023 2:33 PM CDT XR CHEST 1 VIEW ED 04/15/2023 2:10 PM CDT XR FOOT RIGHT 3 OR MORE VIEWS ED 2:10 PM CDT HEMOGLOBIN TOTAL, ARTERIAL Timed 04/15 1:50 PM CDT CARBOXYHEMOGLOBIN, ARTERIAL Timed 04/03 1:50 PM CDT GLUCOSE, WHOLE BLOOD Timed 04/15/2023 1:50 PM CDT ELECTROLYTES, WHOLE BLOOD Timed 2022 1:50 PM CDT LACTATE, WHOLE BLOOD Timed 04/15/2023 1:50 PM CDT BLOOD GAS, ARTERIAL Timed 04/15/2023 1:50 PM CDT ECG 12-LEAD STAT 04/15/2023 1:43 PM CDT TROPONIN T HIGH-SENSITIVITY SERIES (BASELINE, 2HR, 4HR, 6HR) STAT 04/15/2023 1:41 PM CDT SEPSIS LACTATE WITH REFLEX STAT 04/15 1:41 PM CDT EGFR STAT 04/15/2023 1:41 PM CDT DIFFERENTIAL AUTO STAT 04/15/2023 1:41 PM CDT PRO B-TYPE NATRIURETIC PEPTIDE STAT 0 04/15/2023 1:41 PM CDT CBC WITH AUTO DIFFERENTIAL STAT 04/15 1:41 PM CDT MANUAL DIFFERENTIAL STAT 04/15/2023 1:41 PM CDT APTT STAT 04/15/2023 1:41 PM CDT PROTIME-INR STAT 04/15/2023 1:41 PM CDT D-DIMER, QUANTITATIVE STAT 04/15/2023 1:41 PM CDT COMPREHENSIVE METABOLIC PANEL STAT 1:41 PM CDT documented in this encounter Results * (ABNORMAL) POCT glucose (04/25/2023 8:14 PM CDT) Glucose, POC 214(H) 70 - 199 mg/dL [facility] Glucose comment 1 Use This Result [facility] Blood 04/25/2023 8:14 PM CDT 04/25/2023 8:14 PM CDT Willie Noyola MD LAB POCT ORDERABLES - DEVICE Final Result [facility] [address] [facility] Department [place] [address] * POCT glucose (04/25/2023 4:02 PM CDT) Glucose, POC 153 70 - 199 mg/dL [facility] Glucose comment 1 Use This Result [facility] Blood 04/25/2023 4:02 PM CDT 04/25/2023 4:02 PM CDT us Willie Noyola MD LAB POCT ORDERABLES - DEVICE Final Result [facility] [address] [facility] [place] [address] * POCT glucose (04/25/2023 10:57 AM CDT) Pathologist [facility] Glucose, POC 170 70 - 199 mg/dL [facility] Glucose comment 1 Use This Result [facility] Blood 04/25/2023 10:5 7 AM CDT 04/25/2023 10:57 AM CDT Willie Noyola MD LAB POCT ORDERABLES - DEVICE Final Result Performing Organization Address City/[facility] Co de Phone Number [facility] [address] [facility] [place] [address] * eGFR (04/25/2023 8:33 AM CDT) [facility] eGFR 62 mL/min/1. 73 m2 [facility] Comment: Interpretive Data Reference Interval Normal ?>/= [...] interpretive data was last reviewed 2021. Blood 04/25/2023 8:33 AM CDT 04/25/2023 9:29 AM CDT Amilcar Hancock MD LAB BLOOD ORDERABLES Final Re sult [facility] [address] [facility] Department [place] [address] * eGFR (04/25/2023 8:33 AM CDT) eGFR 62 mL/min/1. 73 m2 [facility] Comment: Interpretive Data Reference Interval Normal ?>/= [...] interpretive data was last reviewed 2021. Blood 04/25/2023 8:33 AM CDT 04/25/2023 9:29 AM CDT us Darell Paniagua MD LAB BLOOD ORDERABLES Final Result [facility] [address] [facility] Department of Laboratories [place], [place] [id number] * (ABNORMAL) Differential, auto (04/25/2023 8:33 AM CDT) Neutrophil abs 14.8(H) 1.7 - 6.5 K/cumm [facility] Imm gran abs 0.2(H) 0.0 - 0.1 K/cumm [facility] Lymphocyte abs 1.6 0.8 - 3.3 K/cumm [facility] Monocyte abs 1.0(H) 0.2 - 0.8 K/cumm [facility] Eosinophil abs 0.4 0.0 - 0.5 K/cumm [facility] Basophil abs 0.0 0.0 - 0.1 K/cumm [facility] Neutrophil pct 82.6 % [facility] Comment: Interpretive Data Percent cell count reference ranges are not reported, since discordance with absolute values may lead to misinterpretation of CBC data. Current Interpretive Data was last revised on 2018. Imm gran pct 0.9 % [facility] Comment: Interpretive Data Percent cell count reference ranges are not reported, since discordance with absolute values may lead to misinterpretation of CBC data. Current Interpretive Data was last revised on 2018. Lymphocyte pct 8.7 % [facility] Comment: Interpretive Data Percent cell count reference ranges are not reported, since discordance with absolute values may lead to misinterpretation of CBC data. Current Interpretive Data was last revised on 2018. Monocyte pct 5.4 % [facility] Comment: Interpretive Data Percent cell count reference ranges are not reported, since discordance with absolute values may lead to misinterpretation of CBC data. Current Interpretive Data was last revised on 2018. Eosinophil pct 2.2 % [facility] Comment: Interpretive Data Percent cell count reference ranges are not reported, since discordance with absolute values may lead to misinterpretation of CBC data. Current Interpretive Data was last revised on 2018. Basophil pct 0.2 % [facility] Comment: Interpretive Data Percent cell count reference ranges are not reported, since discordance with absolute values may lead to misinterpretation of CBC data. Current Interpretive Data was last revised on 2018. Blood 04/25/2023 8:33 AM CDT 04/25/2023 9:29 AM CDT us Willie Noyola MD LAB BLOOD ORDERABLES Final Result [facility] [address] [facility] Department [place] [address] * (ABNORMAL) Pro B-type natriuretic peptide (04/25/2023 8:33 AM CDT) NT-proBNP 15,970(H) <=300 pg/mL [facility] Comment: Interpretive Comments: A. Dyspnea in Acute Care Setting All Ages: ?< 300 pg/ml, acute heart failure unlikely. < 50 yrs: ?300 - 450 pg/ml, further investigation warranted. ? > 450 pg/ml, acute heart failure likely. 50 - 74 yrs: ? 300 - 900 pg/ml, further investigation warranted. ? > 900 pg/ml, acute heart failure likely . > or = 75 yrs: ? 450 - 1800 pg/ml, further investigation warranted. ? > 1800 pg/ml, acute heart failure likely. B. Non-acute Setting < 75 yrs ? < 125 pg/ml, rules out heart failure. ? > or = 125 pg/ml, further investigation warranted. > or = 75 yrs ?< 450 pg/ml, rules out heart failure. ? > or = 450 pg/ml, further investigation warranted. - Knowledge of each individual patient's NT-proBNP range may be more useful than using similar cut-points for every patient. Please note that marked elevations in NT-proBNP levels may be observed in state other than Left Ventricular Congestive Failure, including: acute coronary syndromes, right heart strain/failure (including pulmonary embolism and cor pulmonale), critical illness, renal failure, as well as advanced age. - References: 1. Sanaz MENDIOLA et.al. Eur Heart J. 2006:27:330-337. 2. Heena RW, Reagan BRITO. J. AM Florina Cardiol: Cardiovasc Imag. 2009;2: 216- 225. Interpretive Data Last Revised Date: 2018. Blood 04/25/2023 8:33 AM CDT 04/25/2023 9:29 AM CDT Darell Paniagua MD LAB BLOOD ORDERABLES Final Result [facility] [address] [facility] Department [place] [address] * (ABNORMAL) CBC with auto differential (04/25/2023 8:33 AM CDT) WBC 17.9(H) 3.8 - 9.9 K/cumm [facility] Hgb 8.0(L) 11.9 - 15.5 g/dL [facility] Hct 26.9(L) 35.6 - 45.5 % [facility] Plt 548(H) 150 - 400 K/cumm [facility] MPV 9.3 9.1 - 12.3 fL [facility] RBC 3.10(L) 3.90 - 5.20 M/cumm [facility] MCV 86.8 81.3 - 96.4 fL [facility] MCH 25.8(L) 27.1 - 33.3 pg [facility] MCHC 29.7(L) 32.3 - 35.7 g/dL [facility] RDW CV 17.7(H) 11.1 - 14.9 % [facility] RDW SD 55.6(H) 35.7 - 48.1 fL [facility] NRBC abs 0.03(H) 0.00 - 0.01 K/cumm [facility] Blood 04/25/2023 8:33 AM CDT 04/25/2023 9:29 AM CDT Willie Noyola MD LAB BLOOD ORDERABLES Final Result Performing Organization Address [facility] Co de Phone Number [address] [address] * (ABNORMAL) Creatine kinase (CK), total (04/25/2023 8:33 AM CDT) CK 1,085(H) 30 - 200 Units/L [facility] Blood 04/25/2023 8:33 AM CDT 04/25/2023 9:29 AM CDT Result [facility] Dante Stubbs MD LAB BLOOD ORDERABLES Final R esult Performing Organization Address [facility] Co de Phone Number [address] [email or web address] [address] * Phosphorus (04/25/2023 8:33 AM CDT) Phosphorus, pl 2.7 2.3 - 4.5 mg/dL [facility] Blood 04/25/2023 8:33 AM CDT 04/25/2023 9:29 AM CDT Hien Rabago MD LAB BLOOD ORDERABLES Final Result Performing Organization Address City/[facility] Co de Phone Number [address] [email or web address] [address] * Magnesium (04/25/2023 8:33 AM CDT) Magnesium 1.5 1.4 - 2.5 mg/dL [facility] Blood 04/25/2023 8:33 AM CDT 04/25/2023 9:29 AM CDT Hien Rabago MD LAB BLOOD ORDERABLES Final Result [facility] [address] [facility] Department [place] [address] * (ABNORMAL) Comprehensive metabolic panel (04/25/2023 8:33 AM CDT) Sodium 142 135 - 145 mmol/L [facility] Potassium, pl 3.3 3.3 - 4.9 mmol/L [facility] Chloride 105 97 - 110 mmol/L [facility] CO2 33(H) 22 - 32 mmol/L [facility] Anion gap 4 2 - 15 mmol/L [facility] BUN 12 6 - 25 mg/dL [facility] Creatinine 1.20(H) 0.60 - 1.10 mg/dL [facility] Glucose 144 70 - 199 mg/dL [facility] Comment: Interpretive Data Fasting glucose >/= 126 [...] classification and Diagnosis of Diabetes Diabetes Care 202; 46: S19-S40. Current interpretive data was last revised 2022. Calcium 8.0(L) 8.5 - 10.3 mg/dL [facility] Bilirubin, total 0.3 0.1 - 1.2 mg/dL [facility] Protein, pl 5.8(L) 6.5 - 8.5 g/dL [facility] Albumin 1.8(L) 3.5 - 5.0 g/dL [facility] Alk phos 250(H) 40 - 130 Units/L [facility] ALT 26 7 - 45 Units/L [facility] AST 50(H) 10 - 45 Units/L [facility] Blood 04/25/2023 8:33 AM CDT 04/25/2023 9:29 AM CDT Amilcar Hancock MD LAB BLOOD ORDERABLES Final Re sult Performing Organization Address [facility]/ZIP Co de Phone Number [facility] [address] [facility] Department [place] [address] * (ABNORMAL) Comprehensive metabolic panel (04/25/2023 8:33 AM CDT) Sodium 141 135 - 145 mmol/L [facility] Potassium, pl 3.3 3.3 - 4.9 mmol/L [facility] Chloride 103 97 - 110 mmol/L [facility] CO2 33(H) 22 - 32 mmol/L [facility] Anion gap 5 2 - 15 mmol/L [facility] BUN 12 6 - 25 mg/dL [facility] Creatinine 1.20(H) 0.60 - 1.10 mg/dL [facility] Glucose 144 70 - 199 mg/dL [facility] Comment: Interpretive Data Fasting glucose >/= 126 [...] classification and Diagnosis of Diabetes Diabetes Care 202; 46: S19-S40. Current interpretive data was last revised 2022. Calcium 8.2(L) 8.5 - 10.3 mg/dL [facility] Bilirubin, total 0.4 0.1 - 1.2 mg/dL [facility] Protein, pl 5.9(L) 6.5 - 8.5 g/dL [facility] Albumin 1.8(L) 3.5 - 5.0 g/dL [facility] Alk phos 255(H) 40 - 130 Units/L [facility] ALT 27 7 - 45 Units/L [facility] AST 50(H) 10 - 45 Units/L [facility] Blood 04/25/2023 8:33 AM CDT 04/25/2023 9:29 AM CDT Darell Paniagua MD LAB BLOOD ORDERABLES Final Result Performing Organization Address [facility]/ZIP Co de Phone Number [facility] [address] [facility] [place] [address] * POCT glucose (04/25/2023 7:24 AM CDT) [facility] Glucose, POC 157 70 - 199 mg/dL [facility] Glucose comment 1 Use This Result [facility] Blood 04/25/2023 7:24 AM CDT 04/25/2023 7:24 AM CDT us Willie Noyola MD LAB POCT ORDERABLES - DEVICE Final Result Performing Organization Address City/[facility] Co de Phone Number [facility] [address] [place] [address] * (ABNORMAL) Differential, auto (04/24/2023 8:35 PM CDT) [facility] Neutrophil abs 14.5(H) 1.7 - 6.5 K/cumm [facility] Imm gran abs 0.1 0.0 - 0.1 K/cumm [facility] Lymphocyte abs 1.3 0.8 - 3.3 K/cumm [facility] Monocyte abs 0.9(H) 0.2 - 0.8 K/cumm [facility] Eosinophil abs 0.4 0.0 - 0.5 K/cumm [facility] Basophil abs 0.0 0.0 - 0.1 K/cumm [facility] Neutrophil pct 84.2 % [facility] Comment: Interpretive Data Percent cell count reference ranges are not reported, since discordance with absolute values may lead to misinterpretation of CBC data. Current Interpretive Data was last revised on 2018. Imm gran pct 0.8 % [facility] Comment: Interpretive Data Percent cell count reference ranges are not reported, since discordance with absolute values may lead to misinterpretation of CBC data. Current Interpretive Data was last revised on 2018. Lymphocyte pct 7.3 % [facility] Comment: Interpretive Data Percent cell count reference ranges are not reported, since discordance with absolute values may lead to misinterpretation of CBC data. Current Interpretive Data was last revised on 2018. Monocyte pct 5.0 % [facility] Comment: Interpretive Data Percent cell count reference ranges are not reported, since discordance with absolute values may lead to misinterpretation of CBC data. Current Interpretive Data was last revised on 2018. Eosinophil pct 2.5 % [facility] Comment: Interpretive Data Percent cell count reference ranges are not reported, since discordance with absolute values may lead to misinterpretation of CBC data. Current Interpretive Data was last revised on 2018. Basophil pct 0.2 % [facility] Comment: Interpretive Data Percent cell count reference ranges are not reported, since discordance with absolute values may lead to misinterpretation of CBC data. Current Interpretive Data was last revised on 2018. Blood 04/24/2023 8:35 PM CDT 04/24/2023 8:38 PM CDT us Willie Noyola MD LAB BLOOD ORDERABLES Final Result Performing Organization Address City/State/[facility] Co de Phone Number [place] [phone] [facility] Department [place] [address] * (ABNORMAL) CBC with auto differential (04/24/2023 8:35 PM CDT) WBC 17.2(H) 3.8 - 9.9 K/cumm [facility] Hgb 8.3(L) 11.9 - 15.5 g/dL [facility] Hct 27.7(L) 35.6 - 45.5 % [facility] Plt 523(H) 150 - 400 K/cumm [facility] MPV 9.1 9.1 - 12.3 fL [facility] RBC 3.14(L) 3.90 - 5.20 M/cumm [facility] MCV 88.2 81.3 - 96.4 fL [facility] MCH 26.4(L) 27.1 - 33.3 pg [facility] MCHC 30.0(L) 32.3 - 35.7 g/dL [facility] RDW CV 17.2(H) 11.1 - 14.9 % [facility] RDW SD 54.1(H) 35.7 - 48.1 fL [facility] NRBC abs 0.02(H) 0.00 - 0.01 K/cumm [facility] Blood 04/24/2023 8:3 5 PM CDT 04/24/2023 8:38 PM CDT Willie Noyola MD LAB BLOOD ORDERABLES Final Result Performing Organization Address City/[facility] Co de Phone Number [address] [email or web address] [address] * (ABNORMAL) POCT glucose (04/24/2023 8:03 PM CDT) Glucose, POC 204(H) 70 - 199 mg/dL [facility] Blood 04/24/2023 8:03 PM CDT 04/24/2023 8:03 PM CDT Willie Noyola MD LAB POCT ORDERABLES - DEVICE Final Result Performing Organization Address [facility] Co de Phone Number [address] [email or web address] [address] * POCT glucose (04/24/2023 4:13 PM CDT) Glucose, POC 163 70 - 199 mg/dL [facility] Glucose comment 1 Use This Result [facility] Blood 04/24/2023 4:13 PM CDT 04/24/2023 4:13 PM CDT Willie Noyola MD LAB POCT ORDERABLES - DEVICE Final Result Performing Organization Address City/[facility] Co de Phone Number [address] [address] * POCT glucose (04/24/2023 11:30 AM CDT) Glucose, POC 119 70 - 199 mg/dL [facility] Glucose comment 1 Use This Result [facility] Blood 04/24/2023 11:3 0 AM CDT 04/24/2023 11:30 AM CDT us Willie Noyola MD LAB POCT ORDERABLES - DEVICE Final Result [facility] [address] [place] [address] Department [place] [address] * Surgical pathology (04/24/2023 10:00 AM CDT) Tissue (Colon, Biopsy) 04/24/2023 10:14 AM CDT Comment:Cold bx forcep Narrative PATHOLOGY [facility] [place] - 04/25/2023 5:30 PM CDT [facility] Department of Pathology [address] [place] [id number] ?? Note to Patients: ??This report may contain a detailed description of human tissue sent by a health care provider to the laboratory for pathologic evaluation. ??The content of this report is essential for diagnosis and may provide important critical findings. ??This information may be unfamiliar to patients to review without a medical professional present. ?? It is advised that the patient review this report in the presence of a health care provider who can answer questions and explain the details. Final Report Patient Name: LEEROY CANALES : ??1990 (Age: 32) Gender: ??F Address: ??[address] [place] [address] [facility] #: [id number] Service: Medical Location: Patient Type: [facility] INPATIENT ? Taken: 04/24/2023 Received: 04/24/2023 Accessioned: 04/24/2023 Reported: 04/25/2023 Physician(s): Bobby Kaiser PA Diagnosis: Large intestine, random rectum, endoscopic biopsy: ? - No histopathologic abnormality ? - No evidence of active colitis, chronic colitis, or microscopic colitis Tyrone Roman MD Report Electronically Reviewed and Signed Out By ??Tyrone Roman MD 04/25/2023 17:30:56 Specimen(s) Received: A: Random rectal biopsy Microscopic Description: Microscopic examination substantiates the above cited diagnosis. Clinical History: The patient is a 32-year-old woman presenting for rectal bleeding. ??Operative procedure: Upper GI endoscopy and colonoscopy, with random rectal biopsy. Gross Description Received in formalin, labeled with the patient? ? s identifiers and random rectal biopsies are four pink-hoyos tissue fragments measuring 0.3-0.4 cm. ??Entirely submitted. ?? Labeled A1. Jar 0. [facility]/04/24/2023 14:51 Nathalie Daniels Microscopic slide review and interpretation for this case was performed at [facility], Department of Surgical Pathology, [address] [facility], [id number], ??[place], [place] ??[address] ?? CLIA # [id number] Marilin Garcia MD LAB PATHOLO GY ORDERABLES Final Result PATHOLOGY [facility] [place] * EGD (04/24/2023 9:12 AM CDT) Anatomical Region Laterality Modality Other Narrative Procedure Note Marilin Garcia MD - 04/24/2023 9:12 AM CDT [facility] ENDOSCOPY Patient Name: Leeroy Canales Procedure Date: 04/24/2023 9:12 AM Date of : 1990 Admit Type: Inpatient Age: 32 Gender: Female Attending MD: Marilin Savage M.D. Room: [facility] ENDOSCOPY ROOM [facility] Note Status: Finalized Procedure: Upper GI endoscopy Indications: Iron deficiency anemia, Nausea with vomiting Referring MD: Providers: Marilin Garcia M.D. Medicines: Monitored Anesthesia Care Complications: No immediate complications. Estimated Blood Loss: Estimated blood loss: none. Procedure: The benefits, risks, and alternatives to theprocedure and sedation were discussed and informed consentwas obtained. The scope was passed under direct vision. The GIF-H190 Upper endoscope was introduced through the mouth, and advanced to the second part of duodenum. The upper GI endoscopy was accomplished without difficulty. The patient tolerated the procedure well. Findings: The examined esophagus was normal. Patchy mild inflammation characterized by erosions and erythema was found in the gastric body and in the gastric antrum. Biopsies weretaken with a cold forceps for histology. The first portion of the duodenum and second portion of the duodenum were normal. Impression: - Normal esophagus. - Gastritis. Biopsied. - Normal first portion of the duodenum and second portion of the duodenum. Recommendation: - Perform a flexible sigmoidoscopy today. - Use Protonix (pantoprazole) 40 mg PO BID for 8weeks. - Perform an H. pylori stool antigen (HpSA) test. Marilin Garcia M.D. Marilin Garcia M.D. 04/24/2023 10:29:13 AM . Number of Addenda: 0 Note Initiated On: 04/24/2023 9:12 AM Recognized by the [employer] [employer] for promoting quality in endoscopy us Marilin Garcia MD ENDOSCOPY P ROCEDURES Final Result * FLEXIBLE SIGMOIDOSCOPY (04/24/2023 9:12 AM CDT) Anatomical Region Laterality Modality Other Narrative Procedure Note Marilin Garcia MD - 04/24/2023 9:12 AM CDT [facility] Patient Name: Leeroy Canales Procedure Date: 04/24/2023 9:12 AM Date of : 1990 Admit Type: Inpatient Age: 32 Gender: Female Attending MD: Marilin Savage M.D. Room: [facility] ENDOSCOPY ROOM [facility] Note Status: Finalized Procedure: Flexible Sigmoidoscopy Indications: Rectal hemorrhage Referring MD: Providers: Marilin Garcia M.D. Medicines: Monitored Anesthesia Care Complications: No immediate complications. Estimated Blood Loss: Estimated blood loss: none. Procedure: The benefits, risks, and alternatives to theprocedure and sedation were discussed and informed consentwas obtained. The GIF-H190 Upper endoscope wasintroduced through the anus and advanced to the the sigmoid colon. The flexible sigmoidoscopy was accomplished without difficulty. The patient tolerated the procedure well. The quality of the bowelpreparation was inadequate. Findings: An area of mildly congested mucosa was found in the rectum and in the recto-sigmoid colon. Biopsies were taken with a cold forceps for histology. Non-bleeding internal hemorrhoids were found during retroflexion. The hemorrhoids were medium-sized. Impression: - Preparation of the colon was inadequate. - Mildly congested mucosa in the rectum and in the recto-sigmoid colon. Biopsied. - Non-bleeding internal hemorrhoids. This is the likely cause of rectal bleeding. Recommendation: - [facility] - Use hydrocortisone suppository 25 mg 2 per rectum once a day for 7 days. - Begin stool softeners, Colace capsule(s) [id number] mg BID. - Await pathology results. Marilin Garcia M.D. Marilin Garcia M.D. 04/24/2023 10:29:57 AM . Number of Addenda: 0 Note Initiated On: 04/24/2023 9:12 AM Recognized by the [employer] [employer] for promoting quality in endoscopy us Marilin Garcia MD ENDOSCOPY P ROCEDURES Final Result * (ABNORMAL) Differential, auto (04/24/2023 7:58 AM CDT) Pathologist [facility] Neutrophil abs 13.5(H) 1.7 - 6.5 K/cumm [facility] Imm gran abs 0.2(H) 0.0 - 0.1 K/cumm [facility] Lymphocyte abs 1.4 0.8 - 3.3 K/cumm [facility] Monocyte abs 1.1(H) 0.2 - 0.8 K/cumm [facility] Eosinophil abs 0.4 0.0 - 0.5 K/cumm [facility] Basophil abs 0.1 0.0 - 0.1 K/cumm [facility] Neutrophil pct 81.3 % [facility] Comment: Interpretive Data Percent cell count reference ranges are not reported, since discordance with absolute values may lead to misinterpretation of CBC data. Current Interpretive Data was last revised on 2018. Imm gran pct 0.9 % [facility] Comment: Interpretive Data Percent cell count reference ranges are not reported, since discordance with absolute values may lead to misinterpretation of CBC data. Current Interpretive Data was last revised on 2018. Lymphocyte pct 8.4 % [facility] Comment: Interpretive Data Percent cell count reference ranges are not reported, since discordance with absolute values may lead to misinterpretation of CBC data. Current Interpretive Data was last revised on 2018. Monocyte pct 6.9 % [facility] Comment: Interpretive Data Percent cell count reference ranges are not reported, since discordance with absolute values may lead to misinterpretation of CBC data. Current Interpretive Data was last revised on 2018. Eosinophil pct 2.2 % [facility] Comment: Interpretive Data Percent cell count reference ranges are not reported, since discordance with absolute values may lead to misinterpretation of CBC data. Current Interpretive Data was last revised on 2018. Basophil pct 0.3 % [facility] Comment: Interpretive Data Percent cell count reference ranges are not reported, since discordance with absolute values may lead to misinterpretation of CBC data. Current Interpretive Data was last revised on 2018. Blood 04/24/2023 7:58 AM CDT 04/24/2023 8:06 AM CDT Willie Noyola MD LAB BLOOD ORDERABLES Final Result [facility] [address] [address] * (ABNORMAL) CBC with auto differential (04/24/2023 7:58 AM CDT) WBC 16.6(H) 3.8 - 9.9 K/cumm [facility] Hgb 7.9(L) 11.9 - 15.5 g/dL [facility] Hct 26.7(L) 35.6 - 45.5 % [facility] Plt 500(H) 150 - 400 K/cumm [facility] MPV 8.9(L) 9.1 - 12.3 fL [facility] RBC 3.04(L) 3.90 - 5.20 M/cumm [facility] MCV 87.8 81.3 - 96.4 fL [facility] MCH 26.0(L) 27.1 - 33.3 pg [facility] MCHC 29.6(L) 32.3 - 35.7 g/dL [facility] RDW CV 17.2(H) 11.1 - 14.9 % [facility] RDW SD 54.9(H) 35.7 - 48.1 fL [facility] NRBC abs 0.03(H) 0.00 - 0.01 K/cumm [facility] Blood 04/24/2023 7:58 AM CDT 04/24/2023 8:06 AM CDT Willie Noyola MD LAB BLOOD ORDERABLES Final Result [facility] [address] [place] [address] * POCT glucose (04/24/2023 7:39 AM CDT) Glucose, POC 135 70 - 199 mg/dL [facility] Glucose comment 1 Use This Result [facility] Blood 04/24/2023 7:39 AM CDT 04/24/2023 7:39 AM CDT us Willie Noyola MD LAB POCT ORDERABLES - DEVICE Final Result Performing Organization Address [facility] de Phone Number [facility] [address] [facility] [place] [address] * eGFR (04/24/2023 6:20 AM CDT) [facility] eGFR 62 mL/min/1. 73 m2 [facility] Comment: Interpretive Data Reference Interval Normal ?>/= [...] interpretive data was last reviewed 2021. Blood 04/24/2023 6:20 AM CDT 04/24/2023 6:42 AM CDT us Amilcar Hancock MD LAB BLOOD ORDERABLES Final Re sult Performing Organization Address [facility] de Phone Number [facility] [address] [facility] [place] [address] * Phosphorus (04/24/2023 6:20 AM CDT) [facility] Phosphorus, pl 2.9 2.3 - 4.5 mg/dL [facility] Blood 04/24/2023 6:20 AM CDT 04/24/2023 6:42 AM CDT Hien Rabago MD LAB BLOOD ORDERABLES Final Result Performing Organization Address [facility] Co de Phone Number [address] [address] * Magnesium (04/24/2023 6:20 AM CDT) [facility] Magnesium 1.5 1.4 - 2.5 mg/dL [facility] Blood 04/24/2023 6:20 AM CDT 04/24/2023 6:42 AM CDT Hien Rabago MD LAB BLOOD ORDERABLES Final Result Performing Organization Address City/[facility] de Phone Number [address] [address] * (ABNORMAL) Comprehensive metabolic panel (04/24/2023 6:20 AM CDT) [facility] Sodium 143 135 - 145 mmol/L [facility] Potassium, pl 3.3 3.3 - 4.9 mmol/L [facility] Chloride 105 97 - 110 mmol/L [facility] CO2 31 22 - 32 mmol/L [facility] Anion gap 7 2 - 15 mmol/L [facility] BUN 14 6 - 25 mg/dL [facility] Creatinine 1.20(H) 0.60 - 1.10 mg/dL [facility] Glucose 126 70 - 199 mg/dL [facility] Comment: Interpretive Data Fasting glucose >/= 126 [...] interpretive data was last revised 2022. Calcium 8.3(L) 8.5 - 10.3 mg/dL [facility] Bilirubin, total 0.4 0.1 - 1.2 mg/dL [facility] Protein, pl 5.7(L) 6.5 - 8.5 g/dL [facility] Albumin 2.1(L) 3.5 - 5.0 g/dL [facility] Alk phos 233(H) 40 - 130 Units/L [facility] ALT 14 7 - 45 Units/L [facility] AST 22 10 - 45 Units/L [facility] Blood 04/24/2023 6:20 AM CDT 04/24/2023 6:42 AM CDT Amilcar Hancock MD LAB BLOOD ORDERABLES Final Re sult [facility] [address] [facility] Department [place] [address] * (ABNORMAL) Differential, auto (04/23/2023 9:44 PM CDT) Neutrophil abs 14.3(H) 1.7 - 6.5 K/cumm [facility] Imm gran abs 0.2(H) 0.0 - 0.1 K/cumm [facility] Lymphocyte abs 1.7 0.8 - 3.3 K/cumm [facility] Monocyte abs 1.1(H) 0.2 - 0.8 K/cumm [facility] Eosinophil abs 0.3 0.0 - 0.5 K/cumm [facility] Basophil abs 0.0 0.0 - 0.1 K/cumm [facility] Neutrophil pct 81.2 % [facility] Comment: Interpretive Data Percent cell count reference ranges are not reported, since discordance with absolute values may lead to misinterpretation of CBC data. Current Interpretive Data was last revised on 2018. Imm gran pct 1.0 % [facility] Comment: Interpretive Data Percent cell count reference ranges are not reported, since discordance with absolute values may lead to misinterpretation of CBC data. Current Interpretive Data was last revised on 2018. Lymphocyte pct 9.7 % [facility] Comment: Interpretive Data Percent cell count reference ranges are not reported, since discordance with absolute values may lead to misinterpretation of CBC data. Current Interpretive Data was last revised on 2018. Monocyte pct 6.0 % [facility] Comment: Interpretive Data Percent cell count reference ranges are not reported, since discordance with absolute values may lead to misinterpretation of CBC data. Current Interpretive Data was last revised on 2018. Eosinophil pct 1.9 % [facility] Comment: Interpretive Data Percent cell count reference ranges are not reported, since discordance with absolute values may lead to misinterpretation of CBC data. Current Interpretive Data was last revised on 2018. Basophil pct 0.2 % [facility] Comment: Interpretive Data Percent cell count reference ranges are not reported, since discordance with absolute values may lead to misinterpretation of CBC data. Current Interpretive Data was last revised on 2018. Blood 04/23/2023 9:44 PM CDT 04/23/2023 10:01 PM CDT us Willie Noyola MD LAB BLOOD ORDERABLES Final Result [facility] [address] [facility] Department [place] [address] * (ABNORMAL) CBC with auto differential (04/23/2023 9:44 PM CDT) WBC 17.6(H) 3.8 - 9.9 K/cumm [facility] Hgb 8.1(L) 11.9 - 15.5 g/dL [facility] Hct 26.2(L) 35.6 - 45.5 % [facility] Plt 490(H) 150 - 400 K/cumm [facility] MPV 9.0(L) 9.1 - 12.3 fL [facility] RBC 3.05(L) 3.90 - 5.20 M/cumm [facility] MCV 85.9 81.3 - 96.4 fL [facility] MCH 26.6(L) 27.1 - 33.3 pg [facility] MCHC 30.9(L) 32.3 - 35.7 g/dL [facility] RDW CV 17.2(H) 11.1 - 14.9 % [facility] RDW SD 53.5(H) 35.7 - 48.1 fL [facility] NRBC abs 0.00 0.00 - 0.01 K/cumm [facility] Blood 04/23/2023 9:44 PM CDT 04/23/2023 10:01 PM CDT Willie Noyola MD LAB BLOOD ORDERABLES Final Result Performing Organization Address City/[facility]/ZIP Co de Phone Number [address] [place] [address] * POCT glucose (04/23/2023 7:09 PM CDT) Glucose, POC 158 70 - 199 mg/dL [facility] Blood 04/23/2023 7:09 PM CDT 04/23/2023 7:09 PM CDT Willie Noyola MD LAB POCT ORDERABLES - DEVICE Final Result Performing Organization Address City/[facility] Co de Phone Number [address] [place] [address] * POCT glucose (04/23/2023 3:48 PM CDT) Glucose, POC 136 70 - 199 mg/dL [facility] Glucose comment 1 Use This Result [facility] Glucose comment 2 RN/MD Notified [facility] Blood 04/23/2023 3:48 PM CDT 04/23/2023 3:48 PM CDT Willie Noyola MD LAB POCT ORDERABLES - DEVICE Final Result [facility] [address] [facility] [place] [address] * POCT glucose (04/23/2023 12:07 PM CDT) [facility] Glucose, POC 131 70 - 199 mg/dL [facility] Glucose comment 1 Use This Result [facility] Glucose comment 2 RN/MD Notified [facility] Blood 04/23/2023 12:0 7 PM CDT 04/23/2023 12:07 PM CDT us Willie Noyola MD LAB POCT ORDERABLES - DEVICE Final Result Performing Organization Address [facility] Co de Phone Number [facility] [address] [place] [address] * (ABNORMAL) Differential, auto (04/23/2023 10:51 AM CDT) [facility] Neutrophil abs 13.3(H) 1.7 - 6.5 K/cumm [facility] Imm gran abs 0.2(H) 0.0 - 0.1 K/cumm [facility] Lymphocyte abs 1.9 0.8 - 3.3 K/cumm [facility] Monocyte abs 1.1(H) 0.2 - 0.8 K/cumm [facility] Eosinophil abs 0.3 0.0 - 0.5 K/cumm [facility] Basophil abs 0.1 0.0 - 0.1 K/cumm [facility] Neutrophil pct 78.8 % [facility] Comment: Interpretive Data Percent cell count reference ranges are not reported, since discordance with absolute values may lead to misinterpretation of CBC data. Current Interpretive Data was last revised on 2018. Imm gran pct 0.9 % [facility] Comment: Interpretive Data Percent cell count reference ranges are not reported, since discordance with absolute values may lead to misinterpretation of CBC data. Current Interpretive Data was last revised on 2018. Lymphocyte pct 11.3 % [facility] Comment: Interpretive Data Percent cell count reference ranges are not reported, since discordance with absolute values may lead to misinterpretation of CBC data. Current Interpretive Data was last revised on 2018. Monocyte pct 6.8 % [facility] Comment: Interpretive Data Percent cell count reference ranges are not reported, since discordance with absolute values may lead to misinterpretation of CBC data. Current Interpretive Data was last revised on 2018. Eosinophil pct 1.9 % [facility] Comment: Interpretive Data Percent cell count reference ranges are not reported, since discordance with absolute values may lead to misinterpretation of CBC data. Current Interpretive Data was last revised on 2018. Basophil pct 0.3 % [facility] Comment: Interpretive Data Percent cell count reference ranges are not reported, since discordance with absolute values may lead to misinterpretation of CBC data. Current Interpretive Data was last revised on 2018. Blood 04/23/2023 10:5 1 AM CDT 04/23/2023 11:18 AM CDT Willie Noyola MD LAB BLOOD ORDERABLES Final Result Performing Organization Address City/[facility]/ZIP Co de Phone Number [address] [place] [address] * (ABNORMAL) Creatine kinase (CK), total (04/23/2023 10:51 AM CDT) Pathologist [facility] CK 211(H) 30 - 200 Units/L [facility] Blood 04/23/2023 10:5 1 AM CDT 04/23/2023 11:18 AM CDT Dante Stubbs MD LAB BLOOD ORDERABLES Final R esult Performing Organization Address City/[facility]/ZIP Co de Phone Number [address] [email or web address] [address] * (ABNORMAL) CBC with auto differential (04/23/2023 10:51 AM CDT) Pathologist [facility] WBC 16.9(H) 3.8 - 9.9 K/cumm [facility] Hgb 7.9(L) 11.9 - 15.5 g/dL [facility] Hct 25.9(L) 35.6 - 45.5 % [facility] Plt 488(H) 150 - 400 K/cumm [facility] MPV 8.8(L) 9.1 - 12.3 fL [facility] RBC 3.02(L) 3.90 - 5.20 M/cumm [facility] MCV 85.8 81.3 - 96.4 fL [facility] MCH 26.2(L) 27.1 - 33.3 pg [facility] MCHC 30.5(L) 32.3 - 35.7 g/dL [facility] RDW CV 17.2(H) 11.1 - 14.9 % [facility] RDW SD 54.2(H) 35.7 - 48.1 fL [facility] NRBC abs 0.00 0.00 - 0.01 K/cumm [facility] Blood 04/23/2023 10:5 1 AM CDT 04/23/2023 11:18 AM CDT us Willie Noyola MD LAB BLOOD ORDERABLES Final Result Performing Organization Address City/State/[facility] Co de Phone Number [facility] [address] [facility] Department [place] [address] * eGFR (04/23/2023 9:23 AM CDT) [facility] eGFR 57 mL/min/1. 73 m2 [facility] Comment: Interpretive Data Reference Interval Normal ?>/= [...] interpretive data was last reviewed 2021. Blood 04/23/2023 9:23 AM CDT 04/23/2023 9:41 AM CDT us Amilcar Hancock MD LAB BLOOD ORDERABLES Final Re sult [place] [id number] [facility] Department [place] [address] * (ABNORMAL) Differential, auto (04/23/2023 9:23 AM CDT) Neutrophil abs 12.8(H) 1.7 - 6.5 K/cumm [facility] Imm gran abs 0.2(H) 0.0 - 0.1 K/cumm [facility] Lymphocyte abs 1.9 0.8 - 3.3 K/cumm [facility] Monocyte abs 1.3(H) 0.2 - 0.8 K/cumm [facility] Eosinophil abs 0.3 0.0 - 0.5 K/cumm [facility] Basophil abs 0.1 0.0 - 0.1 K/cumm [facility] Neutrophil pct 77.8 % [facility] Comment: Interpretive Data Percent cell count reference ranges are not reported, since discordance with absolute values may lead to misinterpretation of CBC data. Current Interpretive Data was last revised on 2018. Imm gran pct 1.0 % [facility] Comment: Interpretive Data Percent cell count reference ranges are not reported, since discordance with absolute values may lead to misinterpretation of CBC data. Current Interpretive Data was last revised on 2018. Lymphocyte pct 11.4 % [facility] Comment: Interpretive Data Percent cell count reference ranges are not reported, since discordance with absolute values may lead to misinterpretation of CBC data. Current Interpretive Data was last revised on 2018. Monocyte pct 7.8 % [facility] Comment: Interpretive Data Percent cell count reference ranges are not reported, since discordance with absolute values may lead to misinterpretation of CBC data. Current Interpretive Data was last revised on 2018. Eosinophil pct 1.7 % [facility] Comment: Interpretive Data Percent cell count reference ranges are not reported, since discordance with absolute values may lead to misinterpretation of CBC data. Current Interpretive Data was last revised on 2018. Basophil pct 0.3 % [facility] Comment: Interpretive Data Percent cell count reference ranges are not reported, since discordance with absolute values may lead to misinterpretation of CBC data. Current Interpretive Data was last revised on 2018. Blood 04/23/2023 9:23 AM CDT 04/23/2023 9:41 AM CDT us Willie Noyola MD LAB BLOOD ORDERABLES Final Result [facility] [address] [facility] Department [place] [address] * (ABNORMAL) CBC with auto differential (04/23/2023 9:23 AM CDT) WBC 16.5(H) 3.8 - 9.9 K/cumm [facility] Hgb 7.8(L) 11.9 - 15.5 g/dL [facility] Hct 25.4(L) 35.6 - 45.5 % [facility] Plt 461(H) 150 - 400 K/cumm [facility] MPV 8.7(L) 9.1 - 12.3 fL [facility] RBC 2.94(L) 3.90 - 5.20 M/cumm [facility] MCV 86.4 81.3 - 96.4 fL [facility] MCH 26.5(L) 27.1 - 33.3 pg [facility] MCHC 30.7(L) 32.3 - 35.7 g/dL [facility] RDW CV 17.3(H) 11.1 - 14.9 % [facility] RDW SD 54.4(H) 35.7 - 48.1 fL [facility] NRBC abs 0.02(H) 0.00 - 0.01 K/cumm [facility] Blood 04/23/2023 9:23 AM CDT 04/23/2023 9:41 AM CDT Willie Noyola MD LAB BLOOD ORDERABLES Final Result Performing Organization Address City/[facility] Co de Phone Number [address] [email or web address] [address] * Phosphorus (04/23/2023 9:23 AM CDT) Pathologist [facility] Phosphorus, pl 3.0 2.3 - 4.5 mg/dL [facility] Blood 04/23/2023 9:23 AM CDT 04/23/2023 9:41 AM CDT Hien Rabago MD LAB BLOOD ORDERABLES Final Result Performing Organization Address [facility] Co de Phone Number [address] [email or web address] [address] * Magnesium (04/23/2023 9:23 AM CDT) [facility] Magnesium 1.5 1.4 - 2.5 mg/dL [facility] Blood 04/23/2023 9:23 AM CDT 04/23/2023 9:41 AM CDT Hien Rabago MD LAB BLOOD ORDERABLES Final Result Performing Organization Address [facility] Co de Phone Number [address] [email or web address] [address] * (ABNORMAL) Comprehensive metabolic panel (04/23/2023 9:23 AM CDT) [facility] Sodium 143 135 - 145 mmol/L [facility] Potassium, pl 3.3 3.3 - 4.9 mmol/L [facility] Chloride 106 97 - 110 mmol/L [facility] CO2 29 22 - 32 mmol/L [facility] Anion gap 8 2 - 15 mmol/L [facility] BUN 16 6 - 25 mg/dL [facility] Creatinine 1.30(H) 0.60 - 1.10 mg/dL [facility] Glucose 106 70 - 199 mg/dL [facility] Comment: Interpretive Data Fasting glucose >/= 126 [...] classification and Diagnosis of Diabetes Diabetes Care 202; 46: S19-S40. Current interpretive data was last revised 2022. Calcium 8.3(L) 8.5 - 10.3 mg/dL [facility] Bilirubin, total 0.4 0.1 - 1.2 mg/dL [facility] Protein, pl 5.8(L) 6.5 - 8.5 g/dL [facility] Albumin 2.0(L) 3.5 - 5.0 g/dL [facility] Alk phos 241(H) 40 - 130 Units/L [facility] ALT 11 7 - 45 Units/L [facility] AST 13 10 - 45 Units/L [facility] Blood 04/23/2023 9:23 AM CDT 04/23/2023 9:41 AM CDT us Amilcar Hancock MD LAB BLOOD ORDERABLES Final Re sult [facility] [address] [facility] Department [place] [address] * NM GI Bleed Study (04/23/2023 9:13 AM CDT) Anatomical Region Laterality Modality Body N/A Nuclear Medicine 04/23/2023 9:39 AM CDT Narrative 04/23/2023 9:42 AM CDT EXAM DESCRIPTION: ?? NM GI BLEED STUDY RADIOPHARMACEUTICAL: 22 ??mCi Tc-99m in vitro labeled autologous red blood cells via a ??right arm PICC line ??IV site REASON FOR STUDY: ?? GI bleed. ??Shortness of breath and cough for 2 weeks. ?? Nausea and vomiting. ??Report of bright-red, jelly like loose stool last night. Hemoglobin 7.9. TECHNIQUE: Sequential anterior scintigrams of the abdomen were obtained after radiopharmaceutical administration. COMPARISON: ?? None available FINDINGS: No abnormal foci of labeled red blood cell extravasation are seen. IMPRESSION: No evidence for active gastro-intestinal bleeding. ?? Consider further evaluation with abdominopelvic CT as clinically appropriate. THIS IS AN ELECTRONICALLY VERIFIED FINAL REPORT 04/23/2023 9:42 AM - Electronically signed by ??Primo Mccarthy M.D. BC D: ??04/23/2023 9:42 AM T: Report ID: [id number] Reading Location: ??[id number] Procedure Note Primo Mccarthy MD - 04/23/2023 EXAM DESCRIPTION: NM GI BLEED STUDY RADIOPHARMACEUTICAL: 22 mCi Tc-99m in vitro labeled autologous red blood cells via a right arm PICC line IV site REASON FOR STUDY: GI bleed. Shortness of breath and cough for 2 weeks. Nausea and vomiting. Report of bright-red, jelly like loose stool lastnight. Hemoglobin 7.9. TECHNIQUE: Sequential anterior scintigrams of the abdomen were obtainedafter radiopharmaceutical administration. COMPARISON: None available FINDINGS: No abnormal foci of labeled red blood cell extravasation areseen. IMPRESSION: No evidence for active gastro-intestinal bleeding. Consider further evaluation with abdominopelvic CT as clinically appropriate. THIS IS AN ELECTRONICALLY VERIFIED FINAL REPORT 04/23/2023 9:42 AM - Electronically signed by Primo Mccarthy M.D. BC T: Report ID: [id number] Reading Location: [id number] Willie Noyola MD [facility] NM PROCEDURES Fin al Result * hCG, blood, quantitative (04/22/2023 8:07 PM CDT) hCG, quant 1.5 0.0 - 5.0 IUnits/L [facility] Comment: Interpretive Data Non- Female premenopausal: < or = 5.0 IUnits/L Men: < 5.0 IUnits/L Weeks of Gestation ? Reference Interval ?? 3 to 6 ? 5.8-31,795 IUnits/L ?? 7 to 10 ? 3,697-186,977 IUnits/L ??12 to 15 ?27,832- 70,791 IUnits/L ??16 to 18 ? 9,040- 58,179 IUnits/L The [employer] hCG Beta Quant assay procedure was used. Results from different manufacturers or methods may not be comparable. Serial testing should be performed using the same method. Current Interpretive Data was last revised on 2022. Blood 04/22/2023 8:07 PM CDT 04/22/2023 8:25 PM CDT Willie Noyola MD LAB BLOOD ORDERABLES Edited Result - Final [facility] [address] [facility] Department [place] [address] * POCT glucose (04/22/2023 7:22 PM CDT) Glucose, POC 123 70 - 199 mg/dL [facility] Glucose comment 1 Use This Result [facility] Glucose comment 2 RN/MD Notified [facility] Blood 04/22/2023 7:22 PM CDT 04/22/2023 7:22 PM CDT Willie Noyola MD LAB POCT ORDERABLES - DEVICE Final Result Performing Organization Address [facility]/ZIP Co de Phone Number [address] [address] * Guaiac occult blood, fecal, non-neoplasm (04/22/2023 6:00 PM CDT) Guaiac occult blood, fecal Negative Negative [facility] Stool 04/22/2023 6:00 PM CDT 04/22/2023 6:02 PM CDT Willie Noyola MD LAB BODY FLUIDS AND S TOOLS ORDERABLES Final Result Performing Organization Address [facility] Co de Phone Number [address] [address] * POCT glucose (04/22/2023 3:38 PM CDT) Glucose, POC 87 70 - 199 mg/dL [facility] Glucose comment 1 Use This Result [facility] Glucose comment 2 RN/MD Notified [facility] Blood 04/22/2023 3:38 PM CDT 04/22/2023 3:38 PM CDT Willie Noyola MD LAB POCT ORDERABLES - DEVICE Final Result Performing Organization Address [facility] Co de Phone Number [address] [email or web address] [address] * POCT glucose (04/22/2023 1:07 PM CDT) Glucose, POC 87 70 - 199 mg/dL [facility] Blood 04/22/2023 1:07 PM CDT 04/22/2023 1:07 PM CDT Willie Noyola MD LAB POCT ORDERABLES - DEVICE Final Result Performing Organization Address City/[facility]/ZIP Co de Phone Number [address] [address] * (ABNORMAL) POCT glucose (04/22/2023 11:47 AM CDT) Glucose, POC 64(L) 70 - 199 mg/dL [facility] Glucose comment 1 Use This Result [facility] Glucose comment 2 RN/MD Notified [facility] Blood 04/22/2023 11:4 7 AM CDT 04/22/2023 11:47 AM CDT Willie Noyola MD LAB POCT ORDERABLES - DEVICE Final Result Performing Organization Address [facility] Co de Phone Number [address] [email or web address] [address] * POCT glucose (04/22/2023 7:35 AM CDT) Glucose, POC 70 70 - 199 mg/dL [facility] Glucose comment 1 Use This Result [facility] Glucose comment 2 RN/MD Notified [facility] Blood 04/22/2023 7:35 AM CDT 04/22/2023 7:35 AM CDT Willie Noyola MD LAB POCT ORDERABLES - DEVICE Final Result Performing Organization Address [facility] de Phone Number [address] [address] * XR Chest 1 View (04/22/2023 6:37 AM CDT) Anatomical Region Laterality Modality Body, Chest N/A Computed Radiogr aphy 04/22/2023 7:46 AM CDT Narrative 04/22/2023 7:48 AM CDT EXAM DESCRIPTION: XR CHEST 1 VIEW REASON FOR STUDY: Shortness of breath ?? Pt with sob, weakness x 2-3 days on day of admit (04/15/23) ?? TECHNIQUE: 1 ??radiographic view(s) of the chest. COMPARISON: 04/20/2023 FINDINGS: LUNGS: ??There is diffuse airspace opacity throughout the right lung, moderate. ??It is slightly improved from the prior examination. ??There is to a lesser degree airspace opacity in the left upper lobe which also appears slightly improved. ??There is no pneumothorax. ??New large pleural effusion. ?? HEART/MEDIASTINUM: ??Moderate to marked cardiomegaly is unchanged. LINES/TUBES: ??Right PICC catheter with the tip at the superior vena cava. ?? Near the junction with the brachiocephalic. BONES: ??No acute osseous abnormality. IMPRESSION: Slightly improved bilateral airspace opacities, right greater than left. Unchanged moderate to marked cardiomegaly. THIS IS AN ELECTRONICALLY VERIFIED FINAL REPORT 04/22/2023 7:48 AM - Electronically signed by ??Rio SENIOR D: ??04/22/2023 7:48 AM T: Report ID: [id number] Reading Location: ??[id number] Procedure Note Rio Burleson MD - 04/22/2023 EXAM DESCRIPTION: XR CHEST 1 VIEW REASON FOR STUDY: Shortness of breath Pt with sob, weakness x 2-3 days on day of admit (04/15/23) TECHNIQUE: 1 radiographic view(s) of the chest. COMPARISON: 04/20/2023 FINDINGS: LUNGS: There is diffuse airspace opacity throughout the rightlung, moderate. It is slightly improved from the prior examination. There isto a lesser degree airspace opacity in the left upper lobe which also appears slightly improved. There is no pneumothorax. New large pleural effusion. HEART/MEDIASTINUM: Moderate to marked cardiomegaly is unchanged. LINES/TUBES: Right PICC catheter with the tip at the superior vena cava. Near the junction with the brachiocephalic. BONES: No acute osseous abnormality. IMPRESSION: Slightly improved bilateral airspace opacities, right greater thanleft. Unchanged moderate to marked cardiomegaly. THIS IS AN ELECTRONICALLY VERIFIED FINAL REPORT 04/22/2023 7:48 AM - Electronically signed by Rio SENIOR T: Report ID: [id number] Reading Location: [place] [address] Darell Paniagua MD IMG XR PROCEDURES Final Res ult * (ABNORMAL) Pro B-type natriuretic peptide (04/22/2023 6:25 AM CDT) NT-proBNP 10,555(H) <=300 pg/mL [facility] Comment: Interpretive Comments: A. Dyspnea in Acute Care Setting All Ages: ?< 300 pg/ml, acute heart failure unlikely. < 50 yrs: ?300 - 450 pg/ml, further investigation warranted. ? > 450 pg/ml, acute heart failure likely. 50 - 74 yrs: ? 300 - 900 pg/ml, further investigation warranted. ? > 900 pg/ml, acute heart failure likely . > or = 75 yrs: ? 450 - 1800 pg/ml, further investigation warranted. ? > 1800 pg/ml, acute heart failure likely. B. Non-acute Setting < 75 yrs ? < 125 pg/ml, rules out heart failure. ? > or = 125 pg/ml, further investigation warranted. > or = 75 yrs ?< 450 pg/ml, rules out heart failure. ? > or = 450 pg/ml, further investigation warranted. - Knowledge of each individual patient's NT-proBNP range may be more useful than using similar cut-points for every patient. Please note that marked elevations in NT-proBNP levels may be observed in state other than Left Ventricular Congestive Failure, including: acute coronary syndromes, right heart strain/failure (including pulmonary embolism and cor pulmonale), critical illness, renal failure, as well as advanced age. - References: 1. Sanaz MENDIOLA et.al. Eur Heart J. 2006:27:330-337. 2. Heena EDWARDS, Reagan BRITO. J. AM Florina Cardiol: Cardiovasc Imag. 2009;2: 216- 225. Interpretive Data Last Revised Date: 2018. Blood 04/22/2023 6:25 AM CDT 04/22/2023 6:44 AM CDT us Willie Noyola MD LAB BLOOD ORDERABLES Final Result [facility] [address] [facility] Department [place] [address] * eGFR (04/22/2023 6:25 AM CDT) eGFR 52 mL/min/1. 73 m2 [facility] Comment: Interpretive Data Reference Interval Normal ?>/= [...] interpretive data was last reviewed 2021. Blood 04/22/2023 6:25 AM CDT 04/22/2023 6:44 AM CDT us Amilcar Hancock MD LAB BLOOD ORDERABLES Final Re sult [facility] [address] [facility] Department [place] [address] * (ABNORMAL) Differential, auto (04/22/2023 6:25 AM CDT) Neutrophil abs 14.0(H) 1.7 - 6.5 K/cumm [facility] Imm gran abs 0.2(H) 0.0 - 0.1 K/cumm [facility] Lymphocyte abs 1.7 0.8 - 3.3 K/cumm [facility] Monocyte abs 1.3(H) 0.2 - 0.8 K/cumm [facility] Eosinophil abs 0.4 0.0 - 0.5 K/cumm [facility] Basophil abs 0.1 0.0 - 0.1 K/cumm [facility] Neutrophil pct 79.2 % [facility] Comment: Interpretive Data Percent cell count reference ranges are not reported, since discordance with absolute values may lead to misinterpretation of CBC data. Current Interpretive Data was last revised on 2018. Imm gran pct 1.1 % [facility] Comment: Interpretive Data Percent cell count reference ranges are not reported, since discordance with absolute values may lead to misinterpretation of CBC data. Current Interpretive Data was last revised on 2018. Lymphocyte pct 9.9 % [facility] Comment: Interpretive Data Percent cell count reference ranges are not reported, since discordance with absolute values may lead to misinterpretation of CBC data. Current Interpretive Data was last revised on 2018. Monocyte pct 7.1 % [facility] Comment: Interpretive Data Percent cell count reference ranges are not reported, since discordance with absolute values may lead to misinterpretation of CBC data. Current Interpretive Data was last revised on 2018. Eosinophil pct 2.3 % [facility] Comment: Interpretive Data Percent cell count reference ranges are not reported, since discordance with absolute values may lead to misinterpretation of CBC data. Current Interpretive Data was last revised on 2018. Basophil pct 0.4 % [facility] Comment: Interpretive Data Percent cell count reference ranges are not reported, since discordance with absolute values may lead to misinterpretation of CBC data. Current Interpretive Data was last revised on 2018. Blood 04/22/2023 6:25 AM CDT 04/22/2023 6:44 AM CDT Alyson SIBLEY LAB BLOOD ORDERABLES Final Re sult Performing Organization Address City/[facility] Co de Phone Number [address] [address] * Phosphorus (04/22/2023 6:25 AM CDT) Pathologist [facility] Phosphorus, pl 3.2 2.3 - 4.5 mg/dL [facility] Blood 04/22/2023 6:25 AM CDT 04/22/2023 6:44 AM CDT Hien Rabago MD LAB BLOOD ORDERABLES Final Result Performing Organization Address [facility] Co de Phone Number [address] [address] * Magnesium (04/22/2023 6:25 AM CDT) [facility] Magnesium 1.6 1.4 - 2.5 mg/dL [facility] Blood 04/22/2023 6:25 AM CDT 04/22/2023 6:44 AM CDT Hien Rabago MD LAB BLOOD ORDERABLES Final Result Performing Organization Address City/[facility] Co de Phone Number [address] [address] * (ABNORMAL) CBC with auto differential (04/22/2023 6:25 AM CDT) [facility] WBC 17.6(H) 3.8 - 9.9 K/cumm [facility] Hgb 7.9(L) 11.9 - 15.5 g/dL [facility] Hct 25.8(L) 35.6 - 45.5 % [facility] Plt 516(H) 150 - 400 K/cumm [facility] MPV 8.8(L) 9.1 - 12.3 fL [facility] RBC 2.99(L) 3.90 - 5.20 M/cumm [facility] MCV 86.3 81.3 - 96.4 fL [facility] MCH 26.4(L) 27.1 - 33.3 pg [facility] MCHC 30.6(L) 32.3 - 35.7 g/dL [facility] RDW CV 17.4(H) 11.1 - 14.9 % [facility] RDW SD 55.0(H) 35.7 - 48.1 fL [facility] NRBC abs 0.00 0.00 - 0.01 K/cumm [facility] Blood 04/22/2023 6:25 AM CDT 04/22/2023 6:44 AM CDT Alyson SIBLEY LAB BLOOD ORDERABLES Final Re sult [facility] [address] [facility] Department [place] [address] * (ABNORMAL) Comprehensive metabolic panel (04/22/2023 6:25 AM CDT) Sodium 144 135 - 145 mmol/L [facility] Potassium, pl 3.5 3.3 - 4.9 mmol/L [facility] Chloride 107 97 - 110 mmol/L [facility] CO2 28 22 - 32 mmol/L [facility] Anion gap 9 2 - 15 mmol/L [facility] BUN 19 8 - 25 mg/dL [facility] Creatinine 1.40(H) 0.60 - 1.10 mg/dL [facility] Glucose 71 70 - 199 mg/dL [facility] Comment: Interpretive Data Fasting glucose >/= 126 [...] interpretive data was last revised 2022. Calcium 8.3(L) 8.5 - 10.3 mg/dL [facility] Bilirubin, total 0.3 0.1 - 1.2 mg/dL [facility] Protein, pl 5.9(L) 6.5 - 8.5 g/dL [facility] Albumin 1.9(L) 3.5 - 5.0 g/dL [facility] Alk phos 243(H) 40 - 130 Units/L [facility] ALT 12 7 - 45 Units/L [facility] AST 12 10 - 45 Units/L [facility] Blood 04/22/2023 6:25 AM CDT 04/22/2023 6:44 AM CDT Amilcar Hancock MD LAB BLOOD ORDERABLES Final Re sult Performing Organization Address City/[facility]/ZIP Co de Phone Number [address] [place] [address] * (ABNORMAL) CRP (acute phase) (04/22/2023 6:25 AM CDT) Pathologist [facility] CRP 92.6(H) <=10.0 mg/L [facility] Blood 04/22/2023 6:25 AM CDT 04/22/2023 6:44 AM CDT Darell Paniagua MD LAB BLOOD ORDERABLES Final Result [address] [place] [address] * POCT glucose (04/21/2023 8:35 PM CDT) Glucose, POC 107 70 - 199 mg/dL [facility] Glucose comment 1 Use This Result [facility] Blood 04/21/2023 8:35 PM CDT 04/21/2023 8:35 PM CDT Result [facility] Hien Rabago MD LAB POCT ORDERABLES - MAX CE Final Result Performing Organization Address [facility] de Phone Number [address] [email or web address] [address] * POCT glucose (04/21/2023 7:38 PM CDT) Glucose, POC 78 70 - 199 mg/dL [facility] Glucose comment 1 Use This Result [facility] Blood 04/21/2023 7:38 PM CDT 04/21/2023 7:38 PM CDT Hien Rabago MD LAB POCT ORDERABLES - MAX CE Final Result Performing Organization Address [facility] de Phone Number [address] [address] * POCT glucose (04/21/2023 3:56 PM CDT) Glucose, POC 86 70 - 199 mg/dL [facility] Glucose comment 1 Use This Result [facility] Glucose comment 2 RN/MD Notified [facility] Blood 04/21/2023 3:56 PM CDT 04/21/2023 3:56 PM CDT Result [facility] Hien Rabago MD LAB POCT ORDERABLES - MAX CE Final Result Performing Organization Address [facility] de Phone Number [address] [email or web address] [address] * eGFR (04/21/2023 10:54 AM CDT) eGFR 52 mL/min/1. 73 m2 [facility] Comment: Interpretive Data Reference Interval Normal ?>/= [...] interpretive data was last reviewed 2021. Blood 04/21/2023 10:5 4 AM CDT 04/21/2023 11:02 AM CDT us Amilcar Hancock MD LAB BLOOD ORDERABLES Final Re sult [facility] [address] [facility] Department [place] [address] * (ABNORMAL) Differential, auto (04/21/2023 10:54 AM CDT) Pathologist [facility] Neutrophil abs 17.1(H) 1.7 - 6.5 K/cumm [facility] Imm gran abs 0.3(H) 0.0 - 0.1 K/cumm [facility] Lymphocyte abs 1.7 0.8 - 3.3 K/cumm [facility] Monocyte abs 1.4(H) 0.2 - 0.8 K/cumm [facility] Eosinophil abs 0.4 0.0 - 0.5 K/cumm [facility] Basophil abs 0.1 0.0 - 0.1 K/cumm [facility] Neutrophil pct 81.5 % [facility] Comment: Interpretive Data Percent cell count reference ranges are not reported, since discordance with absolute values may lead to misinterpretation of CBC data. Current Interpretive Data was last revised on 2018. Imm gran pct 1.6 % [facility] Comment: Interpretive Data Percent cell count reference ranges are not reported, since discordance with absolute values may lead to misinterpretation of CBC data. Current Interpretive Data was last revised on 2018. Lymphocyte pct 8.0 % [facility] Comment: Interpretive Data Percent cell count reference ranges are not reported, since discordance with absolute values may lead to misinterpretation of CBC data. Current Interpretive Data was last revised on 2018. Monocyte pct 6.7 % [facility] Comment: Interpretive Data Percent cell count reference ranges are not reported, since discordance with absolute values may lead to misinterpretation of CBC data. Current Interpretive Data was last revised on 2018. Eosinophil pct 2.0 % [facility] Comment: Interpretive Data Percent cell count reference ranges are not reported, since discordance with absolute values may lead to misinterpretation of CBC data. Current Interpretive Data was last revised on 2018. Basophil pct 0.2 % [facility] Comment: Interpretive Data Percent cell count reference ranges are not reported, since discordance with absolute values may lead to misinterpretation of CBC data. Current Interpretive Data was last revised on 2018. Blood 04/21/2023 10:5 4 AM CDT 04/21/2023 11:02 AM CDT us Alyson SIBLEY LAB BLOOD ORDERABLES Final Re sult [facility] [address] [facility] Department [place] [address] * (ABNORMAL) Pro B-type natriuretic peptide (04/21/2023 10:54 AM CDT) NT-proBNP 10,513(H) <=300 pg/mL [facility] Comment: Interpretive Comments: A. Dyspnea in Acute Care Setting All Ages: ?< 300 pg/ml, acute heart failure unlikely. < 50 yrs: ?300 - 450 pg/ml, further investigation warranted. ? > 450 pg/ml, acute heart failure likely. 50 - 74 yrs: ? 300 - 900 pg/ml, further investigation warranted. ? > 900 pg/ml, acute heart failure likely . > or = 75 yrs: ? 450 - 1800 pg/ml, further investigation warranted. ? > 1800 pg/ml, acute heart failure likely. B. Non-acute Setting < 75 yrs ? < 125 pg/ml, rules out heart failure. ? > or = 125 pg/ml, further investigation warranted. > or = 75 yrs ?< 450 pg/ml, rules out heart failure. ? > or = 450 pg/ml, further investigation warranted. - Knowledge of each individual patient's NT-proBNP range may be more useful than using similar cut-points for every patient. Please note that marked elevations in NT-proBNP levels may be observed in state other than Left Ventricular Congestive Failure, including: acute coronary syndromes, right heart strain/failure (including pulmonary embolism and cor pulmonale), critical illness, renal failure, as well as advanced age. - References: 1. Sanaz MENDIOLA et.al. Eur Heart J. 2006:27:330-337. 2. Heena RW, Reagan BRITO. J. AM Florina Cardiol: Cardiovasc Imag. 2009;2: 216- 225. Interpretive Data Last Revised Date: 2018. Blood 04/21/2023 10:5 4 AM CDT 04/21/2023 11:02 AM CDT us Darell Paniagua MD LAB BLOOD ORDERABLES Edited Result - Final [facility] [address] [facility] Department [place] [address] * Procalcitonin (04/21/2023 10:54 AM CDT) [facility] Procalcitonin 0.39 0.02 - 0.80 ng/mL [facility] Blood 04/21/2023 10:5 4 AM CDT 04/21/2023 11:02 AM CDT Darell aPniagua MD LAB BLOOD ORDERABLES Final Result Performing Organization Address City/[facility] Co de Phone Number [address] [email or web address] [address] * Phosphorus (04/21/2023 10:54 AM CDT) [facility] Phosphorus, pl 3.2 2.3 - 4.5 mg/dL [facility] Blood 04/21/2023 10:5 4 AM CDT 04/21/2023 11:02 AM CDT Hien Rabago MD LAB BLOOD ORDERABLES Final Result Performing Organization Address [facility] de Phone Number [address] [email or web address] [address] * Magnesium (04/21/2023 10:54 AM CDT) [facility] Magnesium 1.8 1.4 - 2.5 mg/dL [facility] Blood 04/21/2023 10:5 4 AM CDT 04/21/2023 11:02 AM CDT Hien Rabago MD LAB BLOOD ORDERABLES Final Result Performing Organization Address City/[facility] Co de Phone Number [address] [email or web address] [address] * (ABNORMAL) CBC with auto differential (04/21/2023 10:54 AM CDT) [facility] WBC 21.0(H) 3.8 - 9.9 K/cumm [facility] Hgb 8.5(L) 11.9 - 15.5 g/dL [facility] Hct 27.8(L) 35.6 - 45.5 % [facility] Plt 528(H) 150 - 400 K/cumm [facility] MPV 8.8(L) 9.1 - 12.3 fL [facility] RBC 3.23(L) 3.90 - 5.20 M/cumm [facility] MCV 86.1 81.3 - 96.4 fL [facility] MCH 26.3(L) 27.1 - 33.3 pg [facility] MCHC 30.6(L) 32.3 - 35.7 g/dL [facility] RDW CV 17.2(H) 11.1 - 14.9 % [facility] RDW SD 54.9(H) 35.7 - 48.1 fL [facility] NRBC abs 0.00 0.00 - 0.01 K/cumm [facility] Blood 04/21/2023 10:5 4 AM CDT 04/21/2023 11:02 AM CDT us Alyson SIBLEY LAB BLOOD ORDERABLES Final Re sult [facility] [address] [facility] Department [place] [address] * (ABNORMAL) Comprehensive metabolic panel (04/21/2023 10:54 AM CDT) Sodium 141 135 - 145 mmol/L [facility] Potassium, pl 3.6 3.3 - 4.9 mmol/L [facility] Chloride 107 97 - 110 mmol/L [facility] CO2 29 22 - 32 mmol/L [facility] Anion gap 5 2 - 15 mmol/L [facility] BUN 20 8 - 25 mg/dL [facility] Creatinine 1.40(H) 0.60 - 1.10 mg/dL [facility] Glucose 80 70 - 199 mg/dL [facility] Comment: Interpretive Data Fasting glucose >/= 126 [...] interpretive data was last revised 2022. Calcium 8.2(L) 8.5 - 10.3 mg/dL [facility] Bilirubin, total 0.2 0.1 - 1.2 mg/dL [facility] Protein, pl 5.5(L) 6.5 - 8.5 g/dL [facility] Albumin 1.3(L) 3.5 - 5.0 g/dL [facility] Alk phos 288(H) 40 - 130 Units/L [facility] ALT 13 7 - 45 Units/L [facility] AST 11 10 - 45 Units/L [facility] Blood 04/21/2023 10:5 4 AM CDT 04/21/2023 11:02 AM CDT Amilcar Hancock MD LAB BLOOD ORDERABLES Final Re sult Performing Organization Address City/[facility]/ZIP Co de Phone Number [address] [place] [address] * POCT glucose (04/21/2023 10:47 AM CDT) Glucose, POC 77 70 - 199 mg/dL [facility] Glucose comment 1 Use This Result [facility] Glucose comment 2 RN/MD Notified [facility] Blood 04/21/2023 10:4 7 AM CDT 04/21/2023 10:47 AM CDT Hien Rabago MD LAB POCT ORDERABLES - MAX CE Final Result Performing Organization Address City/[facility]/ZIP Co de Phone Number [address] [email or web address] [address] * POCT glucose (04/21/2023 7:39 AM CDT) Glucose, POC 78 70 - 199 mg/dL [facility] Glucose comment 1 Use This Result [facility] Glucose comment 2 RN/MD Notified [facility] Blood 04/21/2023 7:39 AM CDT 04/21/2023 7:39 AM CDT Hien Rabago MD LAB POCT ORDERABLES - MAX CE Final Result Performing Organization Address [facility] Co de Phone Number [facility] [address] [email or web address] [address] * POCT glucose (04/20/2023 7:33 PM CDT) Glucose, POC 70 70 - 199 mg/dL [facility] Glucose comment 1 Use This Result [facility] Blood 04/20/2023 7:33 PM CDT 04/20/2023 7:33 PM CDT Hien Rabago MD LAB POCT ORDERABLES - MAX CE Final Result Performing Organization Address [facility] Co de Phone Number [address] [email or web address] [address] * POCT glucose (04/20/2023 4:08 PM CDT) Glucose, POC 70 70 - 199 mg/dL [facility] Glucose comment 1 Use This Result [facility] Glucose comment 2 RN/MD Notified [facility] Blood 04/20/2023 4:08 PM CDT 04/20/2023 4:08 PM CDT Hien Rabago MD LAB POCT ORDERABLES - MAX CE Final Result Performing Organization Address [facility] Co de Phone Number AMANDA[address] [email or web address] [address] * NM Pulmonary Perfusion Imaging (04/20/2023 2:17 PM CDT) Anatomical Region Laterality Modality Body N/A Nuclear Medicine 04/20/2023 2:17 PM CDT Narrative 04/20/2023 2:18 PM CDT EXAM DESCRIPTION: ?? NM PULMONARY PERFUSION IMAGING RADIOPHARMACEUTICAL: 5 ??mCi Tc-99m MAA via a ??right arm ??IV site REASON FOR STUDY: ?? Chest pain. ??Elevated D-dimer. ??Shortness of breath. TECHNIQUE: Limited multi-planar perfusion scintigrams were obtained. COMPARISON: ?? Chest radiograph 04/20/2023, perfusion lung scan 04/15/2020 FINDINGS: Limited perfusion images obtained in the anterior, anterior oblique, and lateral projection. ??No posterior or posterior oblique projections were obtained. ??There is enlargement of the cardiomediastinal silhouette. ?? Heterogeneous deposition of the radiotracer to both lungs. ??No large segmental perfusion defect is seen to suggest pulmonary embolism. ??Overall, the pattern of perfusion is not significantly changed when compared to the prior study. IMPRESSION: ?? 1. ?? Limited perfusion lung scan with a low probability for pulmonary embolism. THIS IS AN ELECTRONICALLY VERIFIED FINAL REPORT 04/20/2023 2:18 PM - Electronically signed by ??Amor Rodriguez M.D. D: ??04/20/2023 2:18 PM T: Report ID: [id number] Reading Location: ??[id number] Procedure Note Amor Rodriguez MD - 04/20/2023 EXAM DESCRIPTION: NM PULMONARY PERFUSION IMAGING RADIOPHARMACEUTICAL: 5 mCi Tc-99m MAA via a right arm IV site REASON FOR STUDY: Chest pain. Elevated D-dimer. Shortness of breath. TECHNIQUE: Limited multi-planar perfusion scintigrams were obtained. COMPARISON: Chest radiograph 04/20/2023, perfusion lung scan 04/15/2020 FINDINGS: Limited perfusion images obtained in the anterior, anterior oblique, and lateral projection. No posterior or posterior oblique projections were obtained. There is enlargement of the cardiomediastinal silhouette. Heterogeneous deposition of the radiotracer to both lungs. No largesegmental perfusion defect is seen to suggest pulmonary embolism. Overall, thepattern of perfusion is not significantly changed when compared to the priorstudy. IMPRESSION: 1. Limited perfusion lung scan with a low probability for pulmonary embolism. THIS IS AN ELECTRONICALLY VERIFIED FINAL REPORT 04/20/2023 2:18 PM - Electronically signed by Amor MAURER T: Report ID: [id number] Reading Location: [id number] Hien Rabago MD IM NM PROCEDURES Final Re sult * XR Chest 1 View (04/20/2023 1:26 PM CDT) Anatomical Region Laterality Modality Body, Chest N/A Computed Radiogr aphy 04/20/2023 2:18 PM CDT Narrative 04/20/2023 2:21 PM CDT EXAM DESCRIPTION: XR CHEST 1 VIEW REASON FOR STUDY: Shortness of breath. ??Elevated D-dimer. TECHNIQUE: AP semi upright ??radiographic view(s) of the chest. COMPARISON: Chest radiograph 04/19/2023 04/17/2023 FINDINGS: LUNGS: ??Increase in the moderate to severe bilateral airspace opacities when compared to 04/19/2023. ??No large pleural effusion. ??No pneumothorax. ?? Moderate lordotic positioning. HEART/MEDIASTINUM: ??Heart projects enlarged, likely accentuated by technique. ?? Grossly stable mediastinal contours. LINES/TUBES: ??Right PICC tip projects over the right brachiocephalic vein, unchanged. BONES: ??No acute osseous abnormality. IMPRESSION: Moderate to severe bilateral airspace opacities have increased when compared to 04/19/2023. Moderate cardiomegaly appears to have slightly increased in size although evaluation is limited by lordotic positioning. Right PICC tip projects over the right brachiocephalic vein, unchanged. THIS IS AN ELECTRONICALLY VERIFIED FINAL REPORT 04/20/2023 2:21 PM - Electronically signed by ??Amor MAURER D: ??04/20/2023 2:21 PM T: Report ID: [id number] Reading Location: ??[id number] Procedure Note Amor Rodriguez MD - 04/20/2023 EXAM DESCRIPTION: XR CHEST 1 VIEW REASON FOR STUDY: Shortness of breath. Elevated D-dimer. TECHNIQUE: AP semi upright radiographic view(s) of the chest. COMPARISON: Chest radiograph 04/19/2023 04/17/2023 FINDINGS: LUNGS: Increase in the moderate to severe bilateral airspace opacities when compared to 04/19/2023. No large pleural effusion. No pneumothorax. Moderate lordotic positioning. HEART/MEDIASTINUM: Heart projects enlarged, likely accentuated bytechnique. Grossly stable mediastinal contours. LINES/TUBES: Right PICC tip projects over the right brachiocephalic vein, unchanged. BONES: No acute osseous abnormality. IMPRESSION: Moderate to severe bilateral airspace opacities have increased whencompared to 04/19/2023. Moderate cardiomegaly appears to have slightly increased in size although evaluation is limited by lordotic positioning. Right PICC tip projects over the right brachiocephalic vein, unchanged. THIS IS AN ELECTRONICALLY VERIFIED FINAL REPORT 04/20/2023 2:21 PM - Electronically signed by Amor Rodriguez M.D. LB T: Report ID: [id number] Reading Location: [place] [address] Hien Rabago MD IMG XR PROCEDURES Final Re sult * POCT glucose (04/20/2023 11:12 AM CDT) Glucose, POC 82 70 - 199 mg/dL [facility] Glucose comment 1 Use This Result [facility] Glucose comment 2 RN/MD Notified [facility] Blood 04/20/2023 11:1 2 AM CDT 04/20/2023 11:12 AM CDT Hien Rabago MD LAB POCT ORDERABLES - MAX CE Final Result [facility] [address] [facility] Department [place] [address] * POCT glucose (04/20/2023 7:27 AM CDT) Glucose, POC 105 70 - 199 mg/dL [facility] Glucose comment 1 Use This Result [facility] Glucose comment 2 RN/MD Notified [facility] Blood 04/20/2023 7:27 AM CDT 04/20/2023 7:27 AM CDT us Hien Rabago MD LAB POCT ORDERABLES - MAX CE Final Result [facility] [address] [facility] Department [place] [address] * eGFR (04/20/2023 7:08 AM CDT) eGFR 48 mL/min/1. 73 m2 [facility] Comment: Interpretive Data Reference Interval Normal ?>/= [...] interpretive data was last reviewed 2021. Blood 04/20/2023 7:08 AM CDT 04/20/2023 7:24 AM CDT Amilcar Hancock MD LAB BLOOD ORDERABLES Final Re sult [facility] [address] [facility] Department [place] [address] * (ABNORMAL) Differential, auto (04/20/2023 7:08 AM CDT) Neutrophil abs 20.6(H) 1.7 - 6.5 K/cumm [facility] Imm gran abs 0.4(H) 0.0 - 0.1 K/cumm [facility] Lymphocyte abs 1.4 0.8 - 3.3 K/cumm [facility] Monocyte abs 1.8(H) 0.2 - 0.8 K/cumm [facility] Eosinophil abs 0.4 0.0 - 0.5 K/cumm [facility] Basophil abs 0.1 0.0 - 0.1 K/cumm [facility] Neutrophil pct 83.9 % [facility] Comment: Interpretive Data Percent cell count reference ranges are not reported, since discordance with absolute values may lead to misinterpretation of CBC data. Current Interpretive Data was last revised on 2018. Imm gran pct 1.5 % [facility] Comment: Interpretive Data Percent cell count reference ranges are not reported, since discordance with absolute values may lead to misinterpretation of CBC data. Current Interpretive Data was last revised on 2018. Lymphocyte pct 5.9 % [facility] Comment: Interpretive Data Percent cell count reference ranges are not reported, since discordance with absolute values may lead to misinterpretation of CBC data. Current Interpretive Data was last revised on 2018. Monocyte pct 7.1 % [facility] Comment: Interpretive Data Percent cell count reference ranges are not reported, since discordance with absolute values may lead to misinterpretation of CBC data. Current Interpretive Data was last revised on 2018. Eosinophil pct 1.4 % [facility] Comment: Interpretive Data Percent cell count reference ranges are not reported, since discordance with absolute values may lead to misinterpretation of CBC data. Current Interpretive Data was last revised on 2018. Basophil pct 0.2 % [facility] Comment: Interpretive Data Percent cell count reference ranges are not reported, since discordance with absolute values may lead to misinterpretation of CBC data. Current Interpretive Data was last revised on 2018. Blood 04/20/2023 7:08 AM CDT 04/20/2023 7:24 AM CDT Result [facility] Alyson SIBLEY LAB BLOOD ORDERABLES Final Re sult Performing Organization Address [facility] de Phone Number [address] [email or web address] [address] * Phosphorus (04/20/2023 7:08 AM CDT) Pathologist [facility] Phosphorus, pl 3.4 2.3 - 4.5 mg/dL [facility] Blood 04/20/2023 7:08 AM CDT 04/20/2023 7:24 AM CDT Result [facility] Hien Rabago MD LAB BLOOD ORDERABLES Final Result Performing Organization Address [facility] de Phone Number [address] [address] * Magnesium (04/20/2023 7:08 AM CDT) [facility] Magnesium 1.8 1.4 - 2.5 mg/dL [facility] Blood 04/20/2023 7:08 AM CDT 04/20/2023 7:24 AM CDT Result [facility] Hien Rabago MD LAB BLOOD ORDERABLES Final Result Performing Organization Address [facility] de Phone Number [address] [email or web address] [address] * (ABNORMAL) CBC with auto differential (04/20/2023 7:08 AM CDT) [facility] WBC 24.6(H) 3.8 - 9.9 K/cumm [facility] Hgb 8.3(L) 11.9 - 15.5 g/dL [facility] Hct 27.5(L) 35.6 - 45.5 % [facility] Plt 538(H) 150 - 400 K/cumm [facility] MPV 9.0(L) 9.1 - 12.3 fL [facility] RBC 3.15(L) 3.90 - 5.20 M/cumm [facility] MCV 87.3 81.3 - 96.4 fL [facility] MCH 26.3(L) 27.1 - 33.3 pg [facility] MCHC 30.2(L) 32.3 - 35.7 g/dL [facility] RDW CV 17.2(H) 11.1 - 14.9 % [facility] RDW SD 54.3(H) 35.7 - 48.1 fL [facility] NRBC abs 0.02(H) 0.00 - 0.01 K/cumm [facility] Blood 04/20/2023 7:08 AM CDT 04/20/2023 7:24 AM CDT Alyson SIBLEY LAB BLOOD ORDERABLES Final Re sult [facility] [address] [facility] Department [place] [address] * (ABNORMAL) Comprehensive metabolic panel (04/20/2023 7:08 AM CDT) Sodium 139 135 - 145 mmol/L [facility] Potassium, pl 3.4 3.3 - 4.9 mmol/L [facility] Chloride 107 97 - 110 mmol/L [facility] CO2 28 22 - 32 mmol/L [facility] Anion gap 4 2 - 15 mmol/L [facility] BUN 26(H) 8 - 25 mg/dL [facility] Creatinine 1.50(H) 0.60 - 1.10 mg/dL [facility] Glucose 89 70 - 199 mg/dL [facility] Comment: Interpretive Data Fasting glucose >/= 126 [...] interpretive data was last revised 2022. Calcium 7.8(L) 8.5 - 10.3 mg/dL [facility] Bilirubin, total 0.3 0.1 - 1.2 mg/dL [facility] Protein, pl 5.2(L) 6.5 - 8.5 g/dL [facility] Albumin 1.3(L) 3.5 - 5.0 g/dL [facility] Alk phos 294(H) 40 - 130 Units/L [facility] ALT 15 7 - 45 Units/L [facility] AST 12 10 - 45 Units/L [facility] Blood 04/20/2023 7:08 AM CDT 04/20/2023 7:24 AM CDT Amilcar Hancock MD LAB BLOOD ORDERABLES Final Re sult Performing Organization Address City/[facility]/ZIP Co de Phone Number [address] [place] [address] * POCT glucose (04/19/2023 9:48 PM CDT) Glucose, POC 140 70 - 199 mg/dL [facility] Glucose comment 1 Use This Result [facility] Blood 04/19/2023 9:48 PM CDT 04/19/2023 9:48 PM CDT Hien Rabago MD LAB POCT ORDERABLES - MAX CE Final Result Performing Organization Address City/[facility]/ZIP Co de Phone Number [address] [employer] [place], [place] [address] * POCT glucose (04/19/2023 4:15 PM CDT) Glucose, POC 111 70 - 199 mg/dL [facility] Glucose comment 1 Use This Result [facility] Glucose comment 2 RN/MD Notified [facility] Blood 04/19/2023 4:15 PM CDT 04/19/2023 4:15 PM CDT Hien Rabago MD LAB POCT ORDERABLES - MAX CE Final Result Performing Organization Address [facility] Co de Phone Number [facility] [address] [address] * (ABNORMAL) D-dimer, quantitative (04/19/2023 2:36 PM CDT) D-Dimer 4,470(H) <=499 ng/mL FEU AMANDAJONNIE Comment: Interpretive data FDA approved the D-dimer, in conjunction with a low or moderate pretest probability score, to exclude venous thromboembolic events (VTE) (PE and DVT) in outpatients when the D-dimer result is < 500 ng/ml FEU. ?? Evidence supports using an age-adjusted D-dimer cut-off for outpatients older than 50 (age x 10) to improve specificity without sacrificing sensitivity. Example: age 68, VTE cut-off 680 ng/ml FEU. References; Ganga HT et al. Brit Med J. 2013;346:f2492. Delfin et al. Annals Int Med. 2015;163:701-11. Current interpretive data was last revised on 2019. Blood 04/19/2023 2:36 PM CDT 04/19/2023 2:42 PM CDT Hien Rabago MD LAB BLOOD ORDERABLES Final Result Performing Organization Address [facility] Co de Phone Number AMANDA[address] [email or web address] [address] * ECG 12 lead (04/19/2023 2:15 PM CDT) Ventricular Rate EKG/Min 91 BPM [facility] Atrial Rate 91 BPM [facility] MS-Interval (MSEC) 168 ms [facility] QRS-Interval (MSEC) 76 ms [facility] QT-Interval (MSEC) 332 ms [facility] QTc 408 ms [facility] P Wayne 47 degrees [facility] R Wayne 4 degrees [facility] T Wayne 19 degrees [facility] Diagnosis Normal sinus rhythm Low voltage QRS Borderline ECG When compared with ECG of 18-APR-2023 17:02, Questionable change in QRS axis [facility] 04/19/2023 2:15 PM CDT 04/19/2023 11:42 PM CDT Hien Rabago MD ECG ORDERABLES Final Resu lt Performing Organization Address [facility] Co de Phone Number [facility] * POCT glucose (04/19/2023 11:25 AM CDT) Glucose, POC 71 70 - 199 mg/dL [facility] Glucose comment 1 Use This Result [facility] Glucose comment 2 RN/MD Notified [facility] Blood 04/19/2023 11:2 5 AM CDT 04/19/2023 11:25 AM CDT Hien Rabago MD LAB POCT ORDERABLES - MAX CE Final Result Performing Organization Address [facility] de Phone Number AMANDA[address] [place] [address] * POCT glucose (04/19/2023 7:49 AM CDT) Glucose, POC 82 70 - 199 mg/dL [facility] Glucose comment 1 Use This Result [facility] Glucose comment 2 RN/MD Notified [facility] Blood 04/19/2023 7:49 AM CDT 04/19/2023 7:49 AM CDT Hien Rabago MD LAB POCT ORDERABLES - MAX CE Final Result Performing Organization Address [facility] de Phone Number [address] [email or web address] [address] * eGFR (04/19/2023 7:44 AM CDT) eGFR 41 mL/min/1. 73 m2 [facility] Comment: Interpretive Data Reference Interval Normal ?>/= [...] interpretive data was last reviewed 2021. Blood 04/19/2023 7:44 AM CDT 04/19/2023 7:56 AM CDT us Amilcar Hancock MD LAB BLOOD ORDERABLES Final Re sult [facility] [address] [facility] Department [place] [address] * (ABNORMAL) Differential, auto (04/19/2023 7:44 AM CDT) Neutrophil abs 22.5(H) 1.7 - 6.5 K/cumm [facility] Imm gran abs 0.5(H) 0.0 - 0.1 K/cumm [facility] Lymphocyte abs 1.2 0.8 - 3.3 K/cumm [facility] Monocyte abs 1.6(H) 0.2 - 0.8 K/cumm [facility] Eosinophil abs 0.3 0.0 - 0.5 K/cumm [facility] Basophil abs 0.1 0.0 - 0.1 K/cumm [facility] Neutrophil pct 86.1 % [facility] Comment: Interpretive Data Percent cell count reference ranges are not reported, since discordance with absolute values may lead to misinterpretation of CBC data. Current Interpretive Data was last revised on 2018. Imm gran pct 1.7 % [facility] Comment: Interpretive Data Percent cell count reference ranges are not reported, since discordance with absolute values may lead to misinterpretation of CBC data. Current Interpretive Data was last revised on 2018. Lymphocyte pct 4.7 % [facility] Comment: Interpretive Data Percent cell count reference ranges are not reported, since discordance with absolute values may lead to misinterpretation of CBC data. Current Interpretive Data was last revised on 2018. Monocyte pct 6.1 % [facility] Comment: Interpretive Data Percent cell count reference ranges are not reported, since discordance with absolute values may lead to misinterpretation of CBC data. Current Interpretive Data was last revised on 2018. Eosinophil pct 1.2 % [facility] Comment: Interpretive Data Percent cell count reference ranges are not reported, since discordance with absolute values may lead to misinterpretation of CBC data. Current Interpretive Data was last revised on 2018. Basophil pct 0.2 % [facility] Comment: Interpretive Data Percent cell count reference ranges are not reported, since discordance with absolute values may lead to misinterpretation of CBC data. Current Interpretive Data was last revised on 2018. Blood 04/19/2023 7:44 AM CDT 04/19/2023 7:56 AM CDT us Alyson SIBLEY LAB BLOOD ORDERABLES Final Re sult [facility] [address] [facility] Department [place] [address] * Phosphorus (04/19/2023 7:44 AM CDT) Phosphorus, pl 3.8 2.3 - 4.5 mg/dL [facility] Blood 04/19/2023 7:44 AM CDT 04/19/2023 7:56 AM CDT Hien Rabago MD LAB BLOOD ORDERABLES Final Result Performing Organization Address City/[facility] Co de Phone Number [address] [address] * Magnesium (04/19/2023 7:44 AM CDT) [facility] Magnesium 2.0 1.4 - 2.5 mg/dL [facility] Blood 04/19/2023 7:44 AM CDT 04/19/2023 7:56 AM CDT Hien Rabago MD LAB BLOOD ORDERABLES Final Result Performing Organization Address [facility] de Phone Number [address] [address] * (ABNORMAL) CBC with auto differential (04/19/2023 7:44 AM CDT) [facility] WBC 26.1(H) 3.8 - 9.9 K/cumm [facility] Hgb 9.3(L) 11.9 - 15.5 g/dL [facility] Hct 31.2(L) 35.6 - 45.5 % [facility] Plt 501(H) 150 - 400 K/cumm [facility] MPV 10.0 9.1 - 12.3 fL [facility] RBC 3.52(L) 3.90 - 5.20 M/cumm [facility] MCV 88.6 81.3 - 96.4 fL [facility] MCH 26.4(L) 27.1 - 33.3 pg [facility] MCHC 29.8(L) 32.3 - 35.7 g/dL [facility] RDW CV 17.6(H) 11.1 - 14.9 % [facility] RDW SD 56.8(H) 35.7 - 48.1 fL [facility] NRBC abs 0.03(H) 0.00 - 0.01 K/cumm [facility] Blood 04/19/2023 7:44 AM CDT 04/19/2023 7:56 AM CDT Alyson SIBLEY LAB BLOOD ORDERABLES Final Re sult [facility] [address] [facility] Department [place] [address] * (ABNORMAL) Comprehensive metabolic panel (04/19/2023 7:44 AM CDT) Pathologist [facility] Sodium 139 135 - 145 mmol/L [facility] Potassium, pl 3.6 3.3 - 4.9 mmol/L [facility] Chloride 107 97 - 110 mmol/L [facility] CO2 22 22 - 32 mmol/L [facility] Anion gap 10 2 - 15 mmol/L [facility] BUN 29(H) 8 - 25 mg/dL [facility] Creatinine 1.70(H) 0.60 - 1.10 mg/dL [facility] Glucose 77 70 - 199 mg/dL [facility] Comment: Interpretive Data Fasting glucose >/= 126 [...] classification and Diagnosis of Diabetes Diabetes Care 202; 46: S19-S40. Current interpretive data was last revised 2022. Calcium 7.9(L) 8.5 - 10.3 mg/dL [facility] Bilirubin, total 0.4 0.1 - 1.2 mg/dL [facility] Protein, pl 5.4(L) 6.5 - 8.5 g/dL [facility] Albumin 1.3(L) 3.5 - 5.0 g/dL [facility] Alk phos 311(H) 40 - 130 Units/L [facility] ALT 18 7 - 45 Units/L [facility] AST 13 10 - 45 Units/L [facility] Blood 04/19/2023 7:44 AM CDT 04/19/2023 7:56 AM CDT us Amilcar Hancock MD LAB BLOOD ORDERABLES Final Re sult [facility] [address] [facility] Department [place] [address] * XR Chest 1 View (04/19/2023 5:35 AM CDT) Anatomical Region Laterality Modality Body, Chest N/A Computed Radiogr aphy 04/19/2023 7:53 AM CDT Narrative 04/19/2023 8:02 AM CDT EXAM DESCRIPTION: XR CHEST 1 VIEW REASON FOR STUDY: Shortness of breath ?? Pt with sob, weakness x 2-3 days on day of admit (04/15/23 ?? TECHNIQUE: Frontal ??radiographic view(s) of the chest. COMPARISON: 04/17/2023 FINDINGS: Mild airspace and interstitial opacities, likely improved compared to 04/17/2023. ??Likely small pleural effusions. ??No definite pneumothorax. Moderate cardiomegaly is stable. Apparent placement of a partially imaged right PICC with tip projecting over the region of the right brachiocephalic vein. IMPRESSION: 1. ?? Mild airspace and interstitial opacities, likely pulmonary edema. 2. ?? Stable cardiomegaly. 3. ?? Apparent placement of a right PICC with tip projecting over the region of the right brachiocephalic vein. ??This was discussed with Cameron SAMUEL at approximately 8 a.m. on 04/19/2023. THIS IS AN ELECTRONICALLY VERIFIED FINAL REPORT 04/19/2023 8:02 AM - Electronically signed by ??Robbi KLEIN D: ??04/19/2023 8:02 AM T: Report ID: [id number] Reading Location: ??[id number] Procedure Note Robbi Phan MD - 04/19/2023 EXAM DESCRIPTION: XR CHEST 1 VIEW REASON FOR STUDY: Shortness of breath Pt with sob, weakness x 2-3 days on day of admit (04/15/23 TECHNIQUE: Frontal radiographic view(s) of the chest. COMPARISON: 04/17/2023 FINDINGS: Mild airspace and interstitial opacities, likely improvedcompared to 04/17/2023. Likely small pleural effusions. No definite pneumothorax. Moderate cardiomegaly is stable. Apparent placement of a partially imaged right PICC with tip projectingover the region of the right brachiocephalic vein. IMPRESSION: 1. Mild airspace and interstitial opacities, likely pulmonary edema. 2. Stable cardiomegaly. 3. Apparent placement of a right PICC with tip projecting over theregion of the right brachiocephalic vein. This was discussed with Cameron SAMUEL at approximately 8 a.m. on 04/19/2023. THIS IS AN ELECTRONICALLY VERIFIED FINAL REPORT 04/19/2023 8:02 AM - Electronically signed by Robbi Phan M.D. AG T: Report ID: [id number] Reading Location: [id number] Darell Paniagua MD IMG XR PROCEDURES Final Res ult * POCT glucose (04/18/2023 7:31 PM CDT) [facility] Glucose, POC 125 70 - 199 mg/dL [facility] Glucose comment 1 Use This Result [facility] Blood 04/18/2023 7:31 PM CDT 04/18/2023 7:31 PM CDT Hien Rabago MD LAB POCT ORDERABLES - MAX CE Final Result [facility] [address] [facility] Department [place] [address] * ECG 12 lead (04/18/2023 5:02 PM CDT) [facility] Ventricular Rate EKG/Min 90 BPM [facility] Atrial Rate 90 BPM [facility] MS-Interval (MSEC) 168 ms [facility] QRS-Interval (MSEC) 84 ms [facility] QT-Interval (MSEC) 356 ms [facility] QTc 435 ms [facility] P [place] 77 degrees [facility] R [place] 77 degrees [facility] T [place] 49 degrees [facility] Diagnosis Normal sinus rhythm Low voltage QRS Borderline ECG No previous ECGs available [facility] 04/18/2023 5:02 PM CDT 04/19/2023 5:55 PM CDT Hien Rabago MD ECG ORDERABLES Final Resu lt Performing Organization Address [facility] Co de Phone Number [facility] * POCT glucose (04/18/2023 4:26 PM CDT) Glucose, POC 99 70 - 199 mg/dL [facility] Glucose comment 1 Use This Result [facility] Blood 04/18/2023 4:26 PM CDT 04/18/2023 4:26 PM CDT Hien Rabago MD LAB POCT ORDERABLES - MAX CE Final Result Performing Organization Address [facility] de Phone Number [address] [place] [address] * POCT glucose (04/18/2023 11:29 AM CDT) Glucose, POC 124 70 - 199 mg/dL [facility] Glucose comment 1 Use This Result [facility] Blood 04/18/2023 11:2 9 AM CDT 04/18/2023 11:29 AM CDT Hien Rabago MD LAB POCT ORDERABLES - MAX CE Final Result Performing Organization Address [facility] Co de Phone Number [address] [email or web address] [address] * POCT glucose (04/18/2023 7:18 AM CDT) Glucose, POC 137 70 - 199 mg/dL [facility] Glucose comment 1 Use This Result [facility] Blood 04/18/2023 7:1 8 AM CDT 04/18/2023 7:18 AM CDT us Hien Rabago MD LAB POCT ORDERABLES - MAX CE Final Result Performing Organization Address City/State/[facility] Co de Phone Number [facility] [address] [facility] Department [place] [address] * eGFR (04/18/2023 6:46 AM CDT) eGFR 38 mL/min/1. 73 m2 [facility] Comment: Interpretive Data Reference Interval Normal ?>/= [...] interpretive data was last reviewed 2021. Blood 04/18/2023 6:46 AM CDT 04/18/2023 7:04 AM CDT Amilcar Hancock MD LAB BLOOD ORDERABLES Final Re sult [facility] [address] [facility] Department [place] [address] * (ABNORMAL) Differential, auto (04/18/2023 6:46 AM CDT) Neutrophil abs 23.2(H) 1.7 - 6.5 K/cumm [facility] Imm gran abs 0.4(H) 0.0 - 0.1 K/cumm [facility] Lymphocyte abs 1.4 0.8 - 3.3 K/cumm [facility] Monocyte abs 1.6(H) 0.2 - 0.8 K/cumm [facility] Eosinophil abs 0.2 0.0 - 0.5 K/cumm [facility] Basophil abs 0.0 0.0 - 0.1 K/cumm [facility] Neutrophil pct 86.2 % [facility] Comment: Interpretive Data Percent cell count reference ranges are not reported, since discordance with absolute values may lead to misinterpretation of CBC data. Current Interpretive Data was last revised on 2018. Imm gran pct 1.5 % [facility] Comment: Interpretive Data Percent cell count reference ranges are not reported, since discordance with absolute values may lead to misinterpretation of CBC data. Current Interpretive Data was last revised on 2018. Lymphocyte pct 5.3 % [facility] Comment: Interpretive Data Percent cell count reference ranges are not reported, since discordance with absolute values may lead to misinterpretation of CBC data. Current Interpretive Data was last revised on 2018. Monocyte pct 6.0 % [facility] Comment: Interpretive Data Percent cell count reference ranges are not reported, since discordance with absolute values may lead to misinterpretation of CBC data. Current Interpretive Data was last revised on 2018. Eosinophil pct 0.9 % [facility] Comment: Interpretive Data Percent cell count reference ranges are not reported, since discordance with absolute values may lead to misinterpretation of CBC data. Current Interpretive Data was last revised on 2018. Basophil pct 0.1 % [facility] Comment: Interpretive Data Percent cell count reference ranges are not reported, since discordance with absolute values may lead to misinterpretation of CBC data. Current Interpretive Data was last revised on 2018. Blood 04/18/2023 6:46 AM CDT 04/18/2023 7:04 AM CDT Alyson SIBLEY LAB BLOOD ORDERABLES Final Re sult Performing Organization Address [facility] Co de Phone Number [address] [email or web address] [address] * Phosphorus (04/18/2023 6:46 AM CDT) Phosphorus, pl 4.3 2.3 - 4.5 mg/dL [facility] Blood 04/18/2023 6:46 AM CDT 04/18/2023 7:04 AM CDT Hien Rabago MD LAB BLOOD ORDERABLES Final Result Performing Organization Address [facility] Co de Phone Number [address] [address] * Magnesium (04/18/2023 6:46 AM CDT) Pathologist [facility] Magnesium 2.3 1.4 - 2.5 mg/dL [facility] Blood 04/18/2023 6:46 AM CDT 04/18/2023 7:04 AM CDT Hien Rabago MD LAB BLOOD ORDERABLES Final Result Performing Organization Address [facility] Co de Phone Number [address] [address] * Creatine kinase (CK), total (04/18/2023 6:46 AM CDT) CK 72 30 - 200 Units/L [facility] Blood 04/18/2023 6:46 AM CDT 04/18/2023 7:04 AM CDT Amilcar Hancock MD LAB BLOOD ORDERABLES Final Re sult Performing Organization Address [facility] Co de Phone Number [facility] [address] [facility] [email or web address] [address] * (ABNORMAL) CBC with auto differential (04/18/2023 6:46 AM CDT) [facility] WBC 26.9(H) 3.8 - 9.9 K/cumm [facility] Hgb 8.2(L) 11.9 - 15.5 g/dL [facility] Hct 26.1(L) 35.6 - 45.5 % [facility] Plt 572(H) 150 - 400 K/cumm [facility] MPV 9.0(L) 9.1 - 12.3 fL [facility] RBC 3.08(L) 3.90 - 5.20 M/cumm [facility] MCV 84.7 81.3 - 96.4 fL [facility] MCH 26.6(L) 27.1 - 33.3 pg [facility] MCHC 31.4(L) 32.3 - 35.7 g/dL [facility] RDW CV 17.5(H) 11.1 - 14.9 % [facility] RDW SD 54.6(H) 35.7 - 48.1 fL [facility] NRBC abs 0.09(H) 0.00 - 0.01 K/cumm [facility] Blood 04/18/2023 6:46 AM CDT 04/18/2023 7:04 AM CDT Alyson SIBLEY LAB BLOOD ORDERABLES Final Re sult Performing Organization Address City/[facility]/ZIP Co de Phone Number [facility] [address] [facility] [employer] [facility] [place], [place] [id number] * (ABNORMAL) Comprehensive metabolic panel (04/18/2023 6:46 AM CDT) [facility] Sodium 140 135 - 145 mmol/L [facility] Potassium, pl 3.7 3.3 - 4.9 mmol/L [facility] Chloride 109 97 - 110 mmol/L [facility] CO2 24 22 - 32 mmol/L [facility] Anion gap 7 2 - 15 mmol/L [facility] BUN 34(H) 8 - 25 mg/dL [facility] Creatinine 1.80(H) 0.60 - 1.10 mg/dL [facility] Glucose 137 70 - 199 mg/dL [facility] Comment: Interpretive Data Fasting glucose >/= 126 [...] classification and Diagnosis of Diabetes Diabetes Care 202; 46: S19-S40. Current interpretive data was last revised 2022. Calcium 7.7(L) 8.5 - 10.3 mg/dL [facility] Bilirubin, total 0.3 0.1 - 1.2 mg/dL [facility] Protein, pl 5.6(L) 6.5 - 8.5 g/dL [facility] Albumin 1.7(L) 3.5 - 5.0 g/dL [facility] Alk phos 347(H) 40 - 130 Units/L [facility] ALT 24 7 - 45 Units/L [facility] AST 18 10 - 45 Units/L [facility] Blood 04/18/2023 6:46 AM CDT 04/18/2023 7:04 AM CDT Amilcar Hancock MD LAB BLOOD ORDERABLES Final Re sult [facility] [address] [facility] Department [place] [address] * POCT glucose (04/17/2023 7:31 PM CDT) [facility] Signature Glucose, POC 123 70 - 199 mg/dL [facility] Glucose comment 1 Use This Result [facility] Blood 04/17/2023 7:31 PM CDT 04/17/2023 7:31 PM CDT Hien Rabago MD LAB POCT ORDERABLES - MAX CE Final Result Performing Organization Address [facility]/ZIP Co de Phone Number [address] [email or web address] [address] * (ABNORMAL) Protein / creatinine ratio, urine, random (04/17/2023 4:23 PM CDT) Protein, ur, quant 137.0 mg/dL [facility] Comment: Interpretive Data No reference range established. Current interpretive data was last revised 2019. Creatinine Ur 38.0 mg/dL [facility] Comment: Interpretive Data No reference range established. Current interpretive data was last revised 2019. Protein/creatinin e ratio 3,605.3(H ) 0.0 - 180.0 mg/g CR [facility] Urine 04/17/2023 4:23 PM CDT 04/17/2023 4:31 PM CDT Narrative [facility] - 04/17/2023 5:18 PM CDT Now. Result [facility] Sultan Sofía Muro MD LAB URINE ORDERABLES Final Re sult Performing Organization Address [facility] Co de Phone Number [address] [address] * (ABNORMAL) Albumin Creatinine Ratio, Urine (04/17/2023 4:23 PM CDT) Albumin Ur 467.4 mg/L [facility] Comment: Interpretive Data No reference range established. Current interpretive data was last revised 2019. Creatinine Ur 38.0 mg/dL [facility] Comment: Interpretive Data No reference range established. Current interpretive data was last revised 2019. Albumin Creatinine Ratio, Ur 1,230(H) 1 - 29 mg/g [facility] Urine 04/17/2023 4:23 PM CDT 04/17/2023 4:31 PM CDT Golden Kidd MD LAB URINE ORDERABLES Final Re sult Performing Organization Address [facility] de Phone Number [facility] [address] [facility] [place] [address] * POCT glucose (04/17/2023 3:39 PM CDT) Glucose, POC 81 70 - 199 mg/dL [facility] Glucose comment 1 Use This Result [facility] Glucose comment 2 RN/MD Notified [facility] Blood 04/17/2023 3:39 PM CDT 04/17/2023 3:39 PM CDT Hien Rabago MD LAB POCT ORDERABLES - MAX CE Final Result Performing Organization Address [facility] de Phone Number [facility] [address] [place] [address] * (ABNORMAL) Lipid panel (04/17/2023 1:03 PM CDT) [facility] Cholesterol 97 30 - 199 mg/dL [facility] Comment: Interpretive Data Ages < or = [...] revised on 2018. Triglycerides 61 <=149 mg/dL [facility] Comment: Interpretive Data Ages < or = [...] revised on 2018. Non-HDL Cholesterol 59 mg/dL [facility] Comment: Interpretive Data Ages < or = [...] last revised on 2018. Chol/HDL ratio 3 [facility] Blood 04/17/2023 1:03 PM CDT 04/17/2023 1:51 PM CDT Sultan Sofía Muro MD LAB BLOOD ORDERABLES Final Re sult Performing Organization Address City/[facility] Co de Phone Number [place] [address] [facility] [place] [place] [address] * POCT glucose (04/17/2023 10:35 AM CDT) [facility] Signature Glucose, POC 87 70 - 199 mg/dL [facility] Glucose comment 1 Use This Result [facility] Glucose comment 2 RN/MD Notified [facility] Blood 04/17/2023 10:3 5 AM CDT 04/17/2023 10:35 AM CDT Hien Rabago MD LAB POCT ORDERABLES - MAX CE Final Result Performing Organization Address City/[facility]/ZIP Co de Phone Number [address] [place] [address] * XR Chest 1 View (04/17/2023 9:15 AM CDT) Anatomical Region Laterality Modality Body, Chest N/A Computed Radiogr aphy 04/17/2023 10:4 6 AM CDT Narrative 04/17/2023 10:48 AM CDT EXAM DESCRIPTION: XR CHEST 1 VIEW REASON FOR STUDY: Shortness of breath ?? Pt with sob, weakness x 2-3 days on day of admit (04/15/23) ?? TECHNIQUE: Single frontal ??radiographic view(s) of the chest. COMPARISON: Chest radiograph dated 04/15/2023 and 12/13/2017 FINDINGS: Lung volumes are small with bronchovascular crowding. ??Continued diffuse bilateral opacities, multifocal pneumonia and/or pulmonary edema. ??No significant pleural effusion. ??No definite pneumothorax. ??Continued cardiomegaly. ??Osseous structures without acute interval change. IMPRESSION: Cardiomegaly with pulmonary edema as seen on the previous radiograph of 04/15/2023. THIS IS AN ELECTRONICALLY VERIFIED FINAL REPORT 04/17/2023 10:48 AM - Electronically signed by ??Jeremiah ChávezODanial ChávezO. AP D: ??04/17/2023 10:48 AM T: Report ID: [id number] Reading Location: ??[id number] Procedure Note Jeremiah Galvez, DO - 04/17/2023 EXAM DESCRIPTION: XR CHEST 1 VIEW REASON FOR STUDY: Shortness of breath Pt with sob, weakness x 2-3 days on day of admit (04/15/23) TECHNIQUE: Single frontal radiographic view(s) of the chest. COMPARISON: Chest radiograph dated 04/15/2023 and 12/13/2017 FINDINGS: Lung volumes are small with bronchovascular crowding. Continued diffuse bilateral opacities, multifocal pneumonia and/or pulmonary edema.No significant pleural effusion. No definite pneumothorax. Continued cardiomegaly. Osseous structures without acute interval change. IMPRESSION: Cardiomegaly with pulmonary edema as seen on the previous radiograph of 04/15/2023. THIS IS AN ELECTRONICALLY VERIFIED FINAL REPORT 04/17/2023 10:48 AM - Electronically signed by Jeremiah GARCIA T: Report ID: [id number] Reading Location: [id number] Darell Paniagua MD IMG XR PROCEDURES Final Res ult * POCT glucose (04/17/2023 7:48 AM CDT) Glucose, POC 101 70 - 199 mg/dL [facility] Glucose comment 1 Use This Result [facility] Blood 04/17/2023 7:48 AM CDT 04/17/2023 7:48 AM CDT us Hien Rabago MD LAB POCT ORDERABLES - MAX CE Final Result Performing Organization Address City/State/[facility] Co de Phone Number [facility] [address] [facility] Department of Laboratories [place], [place] [id number] * eGFR (04/17/2023 5:10 AM CDT) eGFR 32 mL/min/1. 73 m2 [facility] Comment: Interpretive Data Reference Interval Normal ?>/= [...] interpretive data was last reviewed 2021. Blood 04/17/2023 5:10 AM CDT 04/17/2023 5:36 AM CDT Amilcar Hancock MD LAB BLOOD ORDERABLES Final Re sult [facility] [address] [facility] Department [place] [address] * (ABNORMAL) Differential, auto (04/17/2023 5:10 AM CDT) Neutrophil abs 19.0(H) 1.7 - 6.5 K/cumm [facility] Imm gran abs 0.3(H) 0.0 - 0.1 K/cumm [facility] Lymphocyte abs 1.3 0.8 - 3.3 K/cumm [facility] Monocyte abs 1.5(H) 0.2 - 0.8 K/cumm [facility] Eosinophil abs 0.2 0.0 - 0.5 K/cumm [facility] Basophil abs 0.0 0.0 - 0.1 K/cumm [facility] Neutrophil pct 84.9 % [facility] Comment: Interpretive Data Percent cell count reference ranges are not reported, since discordance with absolute values may lead to misinterpretation of CBC data. Current Interpretive Data was last revised on 2018. Imm gran pct 1.5 % [facility] Comment: Interpretive Data Percent cell count reference ranges are not reported, since discordance with absolute values may lead to misinterpretation of CBC data. Current Interpretive Data was last revised on 2018. Lymphocyte pct 5.8 % [facility] Comment: Interpretive Data Percent cell count reference ranges are not reported, since discordance with absolute values may lead to misinterpretation of CBC data. Current Interpretive Data was last revised on 2018. Monocyte pct 6.5 % [facility] Comment: Interpretive Data Percent cell count reference ranges are not reported, since discordance with absolute values may lead to misinterpretation of CBC data. Current Interpretive Data was last revised on 2018. Eosinophil pct 1.1 % [facility] Comment: Interpretive Data Percent cell count reference ranges are not reported, since discordance with absolute values may lead to misinterpretation of CBC data. Current Interpretive Data was last revised on 2018. Basophil pct 0.2 % [facility] Comment: Interpretive Data Percent cell count reference ranges are not reported, since discordance with absolute values may lead to misinterpretation of CBC data. Current Interpretive Data was last revised on 2018. Blood 04/17/2023 5:10 AM CDT 04/17/2023 5:32 AM CDT Alyson SIBLEY LAB BLOOD ORDERABLES Final Re sult Performing Organization Address City/[facility]/ZIP Co de Phone Number [address] [email or web address] [address] * Phosphorus (04/17/2023 5:10 AM CDT) Phosphorus, pl 4.2 2.3 - 4.5 mg/dL [facility] Blood 04/17/2023 5:10 AM CDT 04/17/2023 5:32 AM CDT Result [facility] Hien Rabago MD LAB BLOOD ORDERABLES Final Result Performing Organization Address [facility] Co de Phone Number [address] [email or web address] [address] * Magnesium (04/17/2023 5:10 AM CDT) Magnesium 2.2 1.4 - 2.5 mg/dL [facility] Blood 04/17/2023 5:10 AM CDT 04/17/2023 5:32 AM CDT Hien Rabago MD LAB BLOOD ORDERABLES Final Result Performing Organization Address City/[facility]/ZIP Co de Phone Number CERNER [address] [address] * (ABNORMAL) Vitamin D 25 hydroxy (04/17/2023 5:10 AM CDT) [facility] Vitamin D 25-OH <6.0(L) 30.0 - 80.0 ng/mL [facility] Blood 04/17/2023 5:10 AM CDT 04/17/2023 5:32 AM CDT Hien Rabago MD LAB BLOOD ORDERABLES Final Result [address] [address] * (ABNORMAL) CBC with auto differential (04/17/2023 5:10 AM CDT) [facility] WBC 22.4(H) 3.8 - 9.9 K/cumm [facility] Hgb 8.2(L) 11.9 - 15.5 g/dL [facility] Hct 26.7(L) 35.6 - 45.5 % [facility] Plt 579(H) 150 - 400 K/cumm [facility] MPV 9.2 9.1 - 12.3 fL [facility] RBC 3.13(L) 3.90 - 5.20 M/cumm [facility] MCV 85.3 81.3 - 96.4 fL [facility] MCH 26.2(L) 27.1 - 33.3 pg [facility] MCHC 30.7(L) 32.3 - 35.7 g/dL [facility] RDW CV 17.3(H) 11.1 - 14.9 % [facility] RDW SD 53.8(H) 35.7 - 48.1 fL [facility] NRBC abs 0.21(H) 0.00 - 0.01 K/cumm [facility] Blood 04/17/2023 5:10 AM CDT 04/17/2023 5:32 AM CDT Alyson SIBLEY LAB BLOOD ORDERABLES Final Re sult Performing Organization Address [facility] Co ne Phone Number [facility] [address] [facility] Department [place] [address] * (ABNORMAL) Comprehensive metabolic panel (04/17/2023 5:10 AM CDT) Sodium 136 135 - 145 mmol/L [facility] Potassium, pl 3.9 3.3 - 4.9 mmol/L [facility] Chloride 106 97 - 110 mmol/L [facility] CO2 20(L) 22 - 32 mmol/L [facility] Anion gap 10 2 - 15 mmol/L [facility] BUN 35(H) 8 - 25 mg/dL [facility] Creatinine 2.10(H) 0.60 - 1.10 mg/dL [facility] Glucose 99 70 - 199 mg/dL [facility] Comment: Interpretive Data Fasting glucose >/= 126 [...] interpretive data was last revised 2022. Calcium 7.8(L) 8.5 - 10.3 mg/dL [facility] Bilirubin, total 0.3 0.1 - 1.2 mg/dL [facility] Protein, pl 5.5(L) 6.5 - 8.5 g/dL [facility] Albumin 1.3(L) 3.5 - 5.0 g/dL [facility] Alk phos 334(H) 40 - 130 Units/L [facility] ALT 32 7 - 45 Units/L [facility] AST 29 10 - 45 Units/L [facility] Blood 04/17/2023 5:10 AM CDT 04/17/2023 5:32 AM CDT Amilcar Hancock MD LAB BLOOD ORDERABLES Final Re sult Performing Organization Address City/[facility] de Phone Number [facility] [address] [place] [address] * Stool culture Stool Rectum (04/16/2023 10:51 PM CDT) Direct Specimen Exam Shiga Toxin Testing: Antigen detection assay for Shiga-toxin NEGATIVE for Shiga Toxin 1 and Shiga Toxin 2. [facility] Comment:Testing performed by : [facility], [address] [place]., [address] Report Final Report: No growth of enteric bacterial pathogens [facility] Comment:Testing performed by : [facility], [address] [place]., [address] Stool (Rectum) 04/16/2023 10 :51 PM CDT 04/17/2023 5:37 AM CDT Narrative [facility] - 04/21/2023 10:08 AM CDT Testing performed by [facility] Microbiology Laboratory ([phone]). Routine stool cultures include procedures to detect Salmonella, Shigella, Edwardsiella, Aeromonas, Pleisiomonas, Campylobacter, Yersinia, E. coli O157, and Shiga-like toxins. ?? Vibrio is cultured only upon special request. ??If Vibrio is suspected, please call the laboratory at [phone]. Interpretive data was last updated March 10, 2017. Amilcar Hancock MD LAB MICROBIOLOGY - GENERAL OR DERABLES Final Result Performing Organization Address [facility] Co de Phone Number [facility] [address] [facility] [place] [address] * POCT glucose (04/16/2023 7:45 PM CDT) Glucose, POC 99 70 - 199 mg/dL [facility] Glucose comment 1 Use This Result [facility] Blood 04/16/2023 7:45 PM CDT 04/16/2023 7:45 PM CDT Hien Rabago MD LAB POCT ORDERABLES - MAX CE Final Result Performing Organization Address [facility] Co de Phone Number [address] [address] * POCT glucose (04/16/2023 4:53 PM CDT) Pathologist [facility] Glucose, POC 106 70 - 199 mg/dL [facility] Blood 04/16/2023 4:53 PM CDT 04/16/2023 4:53 PM CDT Hien Rabago MD LAB POCT ORDERABLES - MAX CE Final Result Performing Organization Address [facility] Co de Phone Number [address] [address] * (ABNORMAL) Folate (04/16/2023 3:37 PM CDT) [facility] Folic acid 3.5(L) >=5.0 ng/mL [facility] Blood 04/16/2023 3:37 PM CDT 04/16/2023 3:49 PM CDT Result [facility] Dallas Peña MD LAB BLOOD ORDERABLES Final Resu lt Performing Organization Address [facility] Co de Phone Number [address] [email or web address] [address] * Vitamin B12 (04/16/2023 3:37 PM CDT) [facility] Vitamin B12 924 230 - 1,250 pg/mL [facility] Blood 04/16/2023 3:3 7 PM CDT 04/16/2023 3:49 PM CDT Dallas Peña MD LAB BLOOD ORDERABLES Final Resu lt Performing Organization Address [facility]/ZIP Co de Phone Number [address] [email or web address] [address] * (ABNORMAL) Iron profile w/ IBC (04/16/2023 3:37 PM CDT) Iron 10(L) 35 - 145 mcg/dL [facility] TIBC 186(L) 250 - 400 mcg/dL [facility] Transferrin saturation 5(L) 20 - 50 % [facility] Blood 04/16/2023 3:37 PM CDT 04/16/2023 3:49 PM CDT us Dallas Peña MD LAB BLOOD ORDERABLES Final Resu lt [facility] [address] [facility] Department [place] [address] * US Kidney Complete (04/16/2023 1:16 PM CDT) Anatomical Region Laterality Modality Kidney N/A Ultrasound 04/16/2023 1:51 PM CDT Narrative 04/16/2023 1:53 PM CDT EXAM DESCRIPTION: ?? US KIDNEY COMPLETE REASON FOR STUDY: ?? CKD for 12 years. TECHNIQUE: Ultrasound of the kidneys and urinary bladder was performed with grayscale imaging. COMPARISON: ?? 05/08/2011 FINDINGS: RIGHT KIDNEY: The right kidney measures ??12.6 ??cm in length. ??There is no hydronephrosis. There is normal cortical thickness and echogenicity. LEFT KIDNEY: The left kidney measures ??12.3 ??cm in length. ??There is no hydronephrosis. There is normal cortical thickness and echogenicity. URINARY BLADDER: ?? Urinary bladder is decompressed with a balloon tip Fortune catheter. OTHER: ?? No other additional findings. IMPRESSION: Normal renal ultrasound. THIS IS AN ELECTRONICALLY VERIFIED FINAL REPORT 04/16/2023 1:53 PM - Electronically signed by ??Jed CROWE D: ??04/16/2023 1:53 PM T: Report ID: [id number] Reading Location: ??[id number] Procedure Note Jed Peters MD - 04/16/2023 EXAM DESCRIPTION: US KIDNEY COMPLETE REASON FOR STUDY: CKD for 12 years. TECHNIQUE: Ultrasound of the kidneys and urinary bladder was performedwith grayscale imaging. COMPARISON: 05/08/2011 FINDINGS: RIGHT KIDNEY: The right kidney measures 12.6 cm in length.There is no hydronephrosis. There is normal cortical thickness and echogenicity. LEFT KIDNEY: The left kidney measures 12.3 cm in length. There is no hydronephrosis. There is normal cortical thickness and echogenicity. URINARY BLADDER: Urinary bladder is decompressed with a balloon tipFoley catheter. OTHER: No other additional findings. IMPRESSION: Normal renal ultrasound. THIS IS AN ELECTRONICALLY VERIFIED FINAL REPORT 04/16/2023 1:53 PM - Electronically signed by Jed Peters M.D. RB T: Report ID: [id number] Reading Location: [place] [address] us Amilcar Hancock MD IMG US PROCEDURES Final Resul t * POCT glucose (04/16/2023 12:32 PM CDT) [facility] Signature Glucose, POC 91 70 - 199 mg/dL [facility] Glucose comment 1 Use This Result [facility] Blood 04/16/2023 12:3 2 PM CDT 04/16/2023 12:32 PM CDT us Hien Rabago MD LAB POCT ORDERABLES - MAX CE Final Result [facility] [address] [facility] Department of Laboratories [place], [place] [id number] * US Arterial Doppler Lower Extremity Bilateral (04/16/2023 12:19 PM CDT) Anatomical Region Laterality Modality Vascular Bilateral Ultrasound 04/16/2023 Narrative 04/18/2023 8:53 PM CDT [employer] Job ID: [id number] [employer] Document ID: [id number] Dictated date/time: [id number] REASON FOR STUDY Gangrene right heel. ?? Triphasic flow in the right common femoral, popliteal, dorsalis pedis and posterior vessels. ??NORMA is 1/1, DP/PT. IMPRESSION Normal indices waveforms in the right lower extremity with no significant distal ischemia. Job ID/Internal Job ID: ??[id number] Amilcar Hancock MD IMG US PROCEDURES Final Resul t * TRANSTHORACIC ECHO (TTE) COMPLETE W DOPPLER/CF W CONTRAST (04/16/2023 10:47 AM CDT) Anatomical Region Laterality Modality Ultrasound 04/16/2023 10:4 7 AM CDT Narrative 04/16/2023 12:49 PM CDT ? Adult Echocardiogram + ----- + :Name: LEEROY CANALES Erik Ramos ?? Study Date: 04/16/2023 ?Status: MHB ?: : ?Patient Location: MHB 2 NE^[id number]^MHBHeight: 67 in ?: : ?Weight: 318 lbBP: 153/85 mmHg: :: 1990 ? Gender: Female ?BSA: 2.5 m2 ?: :Reason For Study: acute decompensated heart failure ?: :Ordering Physician: ?: :CHAPAGAIN, AMILCAR ? : : ? : :Performed By: Tamar ? : :Tanvi, RDPOPEYE ? : + ----- + Procedure A two-dimensional transthoracic echocardiogram with color flow and Doppler was performed. A contrast injection of Definity was performed to improve assessment of LV function. Definity lot # is ' [id number] '. The study was technically difficult due to patient's 'body habitus'. Left Ventricle The left ventricle is normal in size. There is normal left ventricular wall thickness. Left ventricular systolic function is normal. Ejection Fraction = 60-65%. The left ventricular wall motion is normal. There is no obvious thrombus noted. Right Ventricle The right ventricle is normal size. The right ventricular systolic function is normal. Atria The left atrium is mildly dilated. The right atrium is mildly dilated. The interatrial septum is intact with no evidence for an atrial septal defect. Mitral Valve The mitral valve is normal. There is no mitral regurgitation noted. Tricuspid Valve The tricuspid valve is normal. There is mild tricuspid regurgitation. Right ventricular systolic pressure is normal. Aortic Valve Aortic valve structure is normal. No aortic stenosis . No aortic regurgitation is present. Pulmonic Valve The pulmonic valve is not well visualized. Great Vessels The aortic root is normal size. IVC appears 'dilated' in size. IVC has blunted respirophasic collapse. Estimated right atrial pressure is ' 10-15' mmHg. Elevated right heart pressures. Pericardium Mild to moderate pericardial effusion. There are no echocardiographic indications of cardiac tamponade. There is no pleural effusion. Diastology Mitral inflow pattern is normal. E/E prime ratio is >15 suggesting a high pulmonary wedge pressure and LV diastolic dysfunction. Interpretation Summary Left ventricular systolic function is normal. Ejection Fraction = 60-65%. The left atrium is mildly dilated. The right atrium is mildly dilated. There is mild tricuspid regurgitation. Right ventricular systolic pressure is normal. Estimated right atrial pressure is ' 10-15' mmHg. Elevated right heart pressures. Mild to moderate pericardial effusion. There are no echocardiographic indications of cardiac tamponade. Mitral inflow pattern is normal. E/E prime ratio is >15 suggesting a high pulmonary wedge pressure and LV diastolic dysfunction. + + :Measurements with Normals ?: : ?(0.6-1.2 ?LVIDd: ?(3.5-5.7 ?? Ao root diam: ?(2.0-3.7 ?? : :IVSd: 1.2 cmcm) ? 4.9 cm ?cm) ?2.6 cm ? cm) ?: :LVPWd: ?(0.6-1.1 ?LVIDs: ?(3.1-4.6 ?? LA dimension: ?(1.9-4.0 ?? : :1.2 cm ?cm) ? 3.2 cm ?cm) ?3.8 cm ? cm) ?: + + MMode/2D Measurements & Calculations RVDd: 2.9 cm FS: 34.6 % ?Ao root area: 5.3 cm2 ??LVOT diam: 2.0 cm ? EDV(Teich): 110.2 ml ? LVOT area: 3.1 cm2 ? ESV(Teich): 40.0 ml Doppler Measurements & Calculations MV E max mariajose: ? Ao V2 max: ? LV V1 max PG: ? TV V2 max: 124.0 cm/sec ?155.0 cm/sec ? 6.7 mmHg ?73.8 cm/sec MV A max mariajose: ? Ao max P.6 mmHg ??LV V1 max: ?TV max P.2 mmHg 50.1 cm/sec ? FARIBA(V,D): 2.6 cm2 ?129.0 cm/sec MV E/A: 2.5 ? PA V2 max: ?PI end-d mariajose: ?RV V1 max: ?TR max mariajose: 109.0 cm/sec ?109.0 cm/sec ? 78.2 cm/sec ? 173.0 cm/sec PA max P.8 mmHg ?TR max PG: ? 12.0 mmHg ? RVSP(TR): 20.0 mmHg ? RAP systole: 8.0 mmHg Electronically signed by: Sultan Jina MD 04/16/2023 12:49 PM Procedure Note Sultan Sofía Muro MD - 04/16/2023 Adult Echocardiogram + ----- + :Name: LEEROY CANALES Study Date: 04/16/2023Status: MHB : : [id number]^MHBHeight: 67 in : : : 318 lbBP: 153/85 mmHg: :: 1990 Gender: FemaleBSA: 2.5 m2 : :Reason For Study: acute decompensated heart failure: :Ordering Physician:: :AMILCAR HANCOCK: :: :Performed By: Tamar: :JOLENE Tinajero: + ----- + Procedure A two-dimensional transthoracic echocardiogram with color flow and Dopplerwas performed. A contrast injection of Definity was performed to improve assessment of LV function. Definity lot # is ' [id number] '. The study was technically difficult due to patient's 'body habitus'. Left Ventricle The left ventricle is normal in size. There is normal left ventricularwall thickness. Left ventricular systolic function is normal. Ejection Fraction= 60-65%. The left ventricular wall motion is normal. There is no obvious thrombus noted. Right Ventricle The right ventricle is normal size. The right ventricular systolicfunction is normal. Atria The left atrium is mildly dilated. The right atrium is mildly dilated.The interatrial septum is intact with no evidence for an atrial septaldefect. Mitral Valve The mitral valve is normal. There is no mitral regurgitation noted. Tricuspid Valve The tricuspid valve is normal. There is mild tricuspid regurgitation.Right ventricular systolic pressure is normal. Aortic Valve Aortic valve structure is normal. No aortic stenosis . No aorticregurgitation is present. Pulmonic Valve The pulmonic valve is not well visualized. Great Vessels The aortic root is normal size. IVC appears 'dilated' in size. IVC hasblunted respirophasic collapse. Estimated right atrial pressure is ' 10-15'mmHg. Elevated right heart pressures. Pericardium Mild to moderate pericardial effusion. There are no echocardiographic indications of cardiac tamponade. There is no pleural effusion. Diastology Mitral inflow pattern is normal. E/E prime ratio is >15 suggesting ahigh pulmonary wedge pressure and LV diastolic dysfunction. Interpretation Summary Left ventricular systolic function is normal. Ejection Fraction = 60-65%. The left atrium is mildly dilated. The right atrium is mildly dilated. There is mild tricuspid regurgitation. Right ventricular systolic pressure is normal. Estimated right atrial pressure is ' 10-15' mmHg. Elevated right heart pressures. Mild to moderate pericardial effusion. There are no echocardiographic indications of cardiac tamponade. Mitral inflow pattern is normal. E/E prime ratio is >15 suggesting a high pulmonary wedge pressure and LV diastolic dysfunction. + + :Measurements with Normals: : (0.6-1.2 LVIDd: (3.5-5.7 Ao root diam:(2.0-3.7 : :IVSd: 1.2 cmcm) 4.9 cm cm) 2.6 cm cm): :LVPWd: (0.6-1.1 LVIDs: (3.1-4.6 LA dimension:(1.9-4.0 : :1.2 cm cm) 3.2 cm cm) 3.8 cm cm): + + MMode/2D Measurements & Calculations RVDd: 2.9 cm FS: 34.6 % Ao root area: 5.3 cm2 LVOT diam: 2.0cm EDV(Teich): 110.2 ml LVOT area: 3.1cm2 ESV(Teich): 40.0 ml Doppler Measurements & Calculations MV E max mariajose: Ao V2 max: LV V1 max PG: TV V2 max: 124.0 cm/sec 155.0 cm/sec 6.7 mmHg 73.8 cm/sec MV A max mariajose: Ao max P.6 mmHg LV V1 max: TV max P.2mmHg 50.1 cm/sec FARIBA(V,D): 2.6 cm2 129.0 cm/sec MV E/A: 2.5 PA V2 max: PI end-d mariajose: RV V1 max: TR max mariajose: 109.0 cm/sec 109.0 cm/sec 78.2 cm/sec 173.0 cm/sec PA max P.8 mmHg TR max P.0 mmHg RVSP(TR): 20.0mmHg RAP systole: 8.0 mmHg Electronically signed by: Sultan Jina MD 04/16/2023 12:49 PM us Amilcar Hancock MD CV ECHO PROCEDURES Final Resu lt * MRSA Only (Staphylococcs aureus) PCR Nasal (04/16/2023 10:16 AM CDT) [facility] PCR Scrn, Methicillin resistant Staphylococcus aureus (MRSA) Not Detected Not Detected [facility] Comment: Testing performed using Nucleic Acid Amplification with the [employer] Xpert MRSA Assay. This assay detects DNA from SCCmec strains of Staphylococcus aureus using Real- Time PCR and has been cleared by the FDA. Performance characteristics have been verified by the [facility]. Nasal 04/16/2023 10:1 6 AM CDT 04/16/2023 10:20 AM CDT Darell Paniagua MD LAB MICROBIOLOGY - GENERAL ORDERABLES Final Result Performing Organization Address City/[facility]/ZIP Co de Phone Number [address] Department [place] [address] * POCT glucose (04/16/2023 7:34 AM CDT) [facility] Glucose, POC 148 70 - 199 mg/dL [facility] Glucose comment 1 Use This Result [facility] Blood 04/16/2023 7:34 AM CDT 04/16/2023 7:34 AM CDT Result [facility] Hien Rabago MD LAB POCT ORDERABLES - MAX CE Final Result Performing Organization Address [facility] Co de Phone Number [address] Department [email or web address] [address] * Creatine kinase (CK), total (04/16/2023 7:06 AM CDT) [facility] CK 105 30 - 200 Units/L [facility] Blood 04/16/2023 7:06 AM CDT 04/16/2023 7:45 AM CDT Hien Rabago MD LAB BLOOD ORDERABLES Final Result Performing Organization Address City/[facility]/ZIP Co de Phone Number [address] [place] [address] * eGFR (04/16/2023 7:06 AM CDT) [facility] eGFR 26 mL/min/1. 73 m2 [facility] Comment: Interpretive Data Reference Interval Normal ?>/= [...] interpretive data was last reviewed 2021. Blood 04/16/2023 7:06 AM CDT 04/16/2023 7:45 AM CDT us Amilcar Hancock MD LAB BLOOD ORDERABLES Final Re sult [facility] [address] [facility] [place] [address] * (ABNORMAL) Differential, auto (04/16/2023 7:06 AM CDT) [facility] Neutrophil abs 19.7(H) 1.7 - 6.5 K/cumm [facility] Imm gran abs 0.4(H) 0.0 - 0.1 K/cumm [facility] Lymphocyte abs 1.3 0.8 - 3.3 K/cumm [facility] Monocyte abs 1.4(H) 0.2 - 0.8 K/cumm [facility] Eosinophil abs 0.2 0.0 - 0.5 K/cumm [facility] Basophil abs 0.0 0.0 - 0.1 K/cumm [facility] Neutrophil pct 85.4 % [facility] Comment: Interpretive Data Percent cell count reference ranges are not reported, since discordance with absolute values may lead to misinterpretation of CBC data. Current Interpretive Data was last revised on 2018. Imm gran pct 1.8 % [facility] Comment: Interpretive Data Percent cell count reference ranges are not reported, since discordance with absolute values may lead to misinterpretation of CBC data. Current Interpretive Data was last revised on 2018. Lymphocyte pct 5.7 % [facility] Comment: Interpretive Data Percent cell count reference ranges are not reported, since discordance with absolute values may lead to misinterpretation of CBC data. Current Interpretive Data was last revised on 2018. Monocyte pct 6.1 % [facility] Comment: Interpretive Data Percent cell count reference ranges are not reported, since discordance with absolute values may lead to misinterpretation of CBC data. Current Interpretive Data was last revised on 2018. Eosinophil pct 0.9 % [facility] Comment: Interpretive Data Percent cell count reference ranges are not reported, since discordance with absolute values may lead to misinterpretation of CBC data. Current Interpretive Data was last revised on 2018. Basophil pct 0.1 % [facility] Comment: Interpretive Data Percent cell count reference ranges are not reported, since discordance with absolute values may lead to misinterpretation of CBC data. Current Interpretive Data was last revised on 2018. Blood 04/16/2023 7:06 AM CDT 04/16/2023 7:45 AM CDT us Sultan Sofía Muro MD LAB BLOOD ORDERABLES Final Re sult [facility] [address] [facility] Department [place] [address] * (ABNORMAL) Pro B-type natriuretic peptide (04/16/2023 7:06 AM CDT) [facility] NT-proBNP 11,534(H) <=300 pg/mL [facility] Comment: Interpretive Comments: A. Dyspnea in Acute Care Setting All Ages: ?< 300 pg/ml, acute heart failure unlikely. < 50 yrs: ?300 - 450 pg/ml, further investigation warranted. ? > 450 pg/ml, acute heart failure likely. 50 - 74 yrs: ? 300 - 900 pg/ml, further investigation warranted. ? > 900 pg/ml, acute heart failure likely . > or = 75 yrs: ? 450 - 1800 pg/ml, further investigation warranted. ? > 1800 pg/ml, acute heart failure likely. B. Non-acute Setting < 75 yrs ? < 125 pg/ml, rules out heart failure. ? > or = 125 pg/ml, further investigation warranted. > or = 75 yrs ?< 450 pg/ml, rules out heart failure. ? > or = 450 pg/ml, further investigation warranted. - Knowledge of each individual patient's NT-proBNP range may be more useful than using similar cut-points for every patient. Please note that marked elevations in NT-proBNP levels may be observed in state other than Left Ventricular Congestive Failure, including: acute coronary syndromes, right heart strain/failure (including pulmonary embolism and cor pulmonale), critical illness, renal failure, as well as advanced age. - References: 1. Sanaz MENDIOLA et.al. Eur Heart J. 2006:27:330-337. 2. Heena EDWARDS, Reagan BRITO. J. AM Florina Cardiol: Cardiovasc Imag. 2009;2: 216- 225. Interpretive Data Last Revised Date: 2018. Blood 04/16/2023 7:06 AM CDT 04/16/2023 7:45 AM CDT Darell Paniagua MD LAB BLOOD ORDERABLES Edited Result - Final Performing Organization Address [facility] de Phone Number [address] [place] [address] * Procalcitonin (04/16/2023 7:06 AM CDT) Procalcitonin 0.56 0.02 - 0.80 ng/mL [facility] Blood 04/16/2023 7:06 AM CDT 04/16/2023 7:45 AM CDT Darell Paniagua MD LAB BLOOD ORDERABLES Final Result Performing Organization Address [facility] de Phone Number [address] [email or web address] [address] * (ABNORMAL) Hemoglobin A1c (04/16/2023 7:06 AM CDT) Hgb A1C 6.5(H) 4.0 - 5.6 % [facility] Estimated Average Glucose 140 mg/dL [facility] Comment: The ADA recommends reporting an estimated Average Glucose (eAG) with all Hemoglobin A1c results using the equation derived from a study of 507 normal and diabetic adults. ??Minority populations were underrepresented and children were not included. ?? (Diabetes Care 31:8557-5443, 2008). ??The eAG is not equivalent to a fasting glucose. Blood 04/16/2023 7:06 AM CDT 04/16/2023 7:45 AM CDT Amilcar Hancock MD LAB BLOOD ORDERABLES Final Re sult Performing Organization Address [facility] de Phone Number [address] [email or web address] [address] * (ABNORMAL) Comprehensive metabolic panel (04/16/2023 7:06 AM CDT) Sodium 139 135 - 145 mmol/L [facility] Potassium, pl 3.7 3.3 - 4.9 mmol/L [facility] Chloride 106 97 - 110 mmol/L [facility] CO2 23 22 - 32 mmol/L [facility] Anion gap 10 2 - 15 mmol/L [facility] BUN 34(H) 8 - 25 mg/dL [facility] Creatinine 2.50(H) 0.60 - 1.10 mg/dL [facility] Glucose 139 70 - 199 mg/dL [facility] Comment: Interpretive Data Fasting glucose >/= 126 [...] classification and Diagnosis of Diabetes Diabetes Care 202; 46: S19-S40. Current interpretive data was last revised 2022. Calcium 7.8(L) 8.5 - 10.3 mg/dL [facility] Bilirubin, total 0.3 0.1 - 1.2 mg/dL [facility] Protein, pl 5.4(L) 6.5 - 8.5 g/dL [facility] Albumin 1.6(L) 3.5 - 5.0 g/dL [facility] Alk phos 327(H) 40 - 130 Units/L [facility] ALT 28 7 - 45 Units/L [facility] AST 18 10 - 45 Units/L [facility] Blood 04/16/2023 7:06 AM CDT 04/16/2023 7:45 AM CDT us Amilcar Hancock MD LAB BLOOD ORDERABLES Final Re sult [facility] [address] [facility] Department [place] [address] * TSH reflex to free T4 (04/16/2023 7:06 AM CDT) Pathologist [facility] TSH 4.01 0.30 - 4.20 mcIUnit/mL [facility] Blood 04/16/2023 7:06 AM CDT 04/16/2023 7:45 AM CDT Alyson SIBLEY LAB BLOOD ORDERABLES Final Re sult Performing Organization Address [facility] Co de Phone Number [facility] [address] [address] * (ABNORMAL) CBC with auto differential (04/16/2023 7:06 AM CDT) [facility] WBC 23.0(H) 3.8 - 9.9 K/cumm [facility] Hgb 8.0(L) 11.9 - 15.5 g/dL [facility] Hct 25.7(L) 35.6 - 45.5 % [facility] Plt 614(H) 150 - 400 K/cumm [facility] MPV 9.2 9.1 - 12.3 fL [facility] RBC 2.99(L) 3.90 - 5.20 M/cumm [facility] MCV 86.0 81.3 - 96.4 fL [facility] MCH 26.8(L) 27.1 - 33.3 pg [facility] MCHC 31.1(L) 32.3 - 35.7 g/dL [facility] RDW CV 17.2(H) 11.1 - 14.9 % [facility] RDW SD 53.7(H) 35.7 - 48.1 fL [facility] NRBC abs 0.18(H) 0.00 - 0.01 K/cumm [facility] Blood 04/16/2023 7:06 AM CDT 04/16/2023 7:45 AM CDT Alyson SIBLEY LAB BLOOD ORDERABLES Final Re sult Performing Organization Address City/[facility]/ZIP Co de Phone Number [facility] [address] [address] * (ABNORMAL) Urinalysis, microscopic only (04/16/2023 4:23 AM CDT) WBC, ur 6-10(A) 0 - 5 /HPF [facility] RBC, ur 6-10(A) 0 - 2 /HPF [facility] Epithelial cells, squamous, ur 1-5 0 - 5 /HPF [facility] Bacteria, ur 1+(A) [facility] Yeast, ur 2+(A) [facility] Mucous, ur Present(A) [facility] Hyaline casts, ur 21-50(A) 0 - 10 /LPF [facility] Granular casts, ur 1-5(A) 0 - 0 /LPF [facility] Culture Reflex Comment Reflex conditions for urine culture (WBC >10) not met. [facility] Urine 04/16/2023 4:23 AM CDT 04/16/2023 4:28 AM CDT Amilcar Hancock MD LAB URINE ORDERABLES Final Re sult Performing Organization Address [facility]/ZIP Co de Phone Number [address] [address] * (ABNORMAL) Protein / creatinine ratio, urine, random (04/16/2023 4:23 AM CDT) Pathologist [facility] Protein, ur, quant 241.0 mg/dL [facility] Comment: Interpretive Data No reference range established. Current interpretive data was last revised 2019. Creatinine Ur 127.0 mg/dL [facility] Comment: Interpretive Data No reference range established. Current interpretive data was last revised 2019. Protein/creatinin e ratio 1,897.6(H ) 0.0 - 180.0 mg/g CR [facility] Urine 04/16/2023 4:23 AM CDT 04/16/2023 4:28 AM CDT Amilcar Hanocck MD LAB URINE ORDERABLES Final Re sult [facility] [address] [facility] Department [place] [address] * (ABNORMAL) Urinalysis reflex to microscopic and culture Urine (04/16/2023 4:23 AM CDT) Color, ur Yellow Yellow [facility] Clarity, ur Cloudy(A) Clear [facility] Specific gravity, ur 1.012 1.003 - 1.030 [facility] pH, urine 5.0 [facility] Protein, ur ql 2+(A) Negative [facility] Glucose, ur ql 1+(A) Negative [facility] Ketones, ur Negative Negative [facility] Bilirubin, ur Negative Negative [facility] Blood, ur 2+(A) Negative [facility] Urobilinogen, ur <2.0 <2.0 mg/dL [facility] Nitrite, ur Negative Negative [facility] Leukocyte esterase, ur 1+(A) Negative [facility] UA reflex comment Reflex to microscopic UA will be performed. [facility] Urine 04/16/2023 4:23 AM CDT 04/16/2023 4:28 AM CDT Narrative [facility] - 04/16/2023 4:42 AM CDT ?? Urine pH is affected by diet, medications, systemic acid-base disturbances, and renal tubular function. ??pH may affect urinary stone formation. ??For example, urine pH below 6.0 may help reduce the tendency for calcium phosphate stones and pH greater than 6.0 may reduce the tendency for uric acid stone formation. Source: [facility] [email or web address]. Last revised 11-13-2017 us Amilcar Hancock MD LAB MICROBIOLOGY - GENERAL OR DERABLES Final Result Performing Organization Address City/[facility]/ZIP Co de Phone Number [facility] [address] [facility] Department [place] [address] * (ABNORMAL) Troponin T high-sensitivity 6-hour (04/15/2023 8:51 PM CDT) Trop T hs 89(H) <=14 ng/L [facility] Comment: Interpretive Data For further hscTnT resources including the diagnostic algorithm and an aid in interpretation, copy and paste this link: https://nrl.testcatalog.org/show/hsTrop Current Interpretive Data last revised 2020. Trop T hs delta See Comment ng/L [facility] Comment:Inappropriate collec tion time to report a delta. Trop T hs pct delta See Comment % [facility] Comment:Inappropriate collec tion time to report a delta. Trop T hs interp See Comment [facility] Comment:Inappropriate collec tion time to report a delta. Blood 04/15/2023 8:51 PM CDT 04/15/2023 9:03 PM CDT Sam Chao MD LAB BLOOD ORDERABLES Edited Result - Final Performing Organization Address City/[facility] Co de Phone Number [address] [place] [address] * POCT glucose (04/15/2023 7:56 PM CDT) Pathologist [facility] Glucose, POC 189 70 - 199 mg/dL [facility] Glucose comment 1 Use This Result [facility] Glucose comment 2 RN/MD Notified [facility] Blood 04/15/2023 7:56 PM CDT 04/15/2023 7:56 PM CDT Amilcar Hancock MD LAB POCT ORDERABLES - DEVICE Final Result Performing Organization Address City/[facility]/ZIP Co de Phone Number [address] [place] [address] * (ABNORMAL) Aerobic and anaerobic culture and gram stain Wound Abdominal, right lower quadrant (04/15/2023 6:26 PM CDT) [facility] Direct Specimen Exam Stain: Few polymorphonuclear leukocytes seen. Rare Gram Positive Bacilli Rare Gram Positive Cocci [facility] Comment:Testing performed by : [facility], [address] [facility], [place]., [address] Report Final Report: Few Mixed microorganisms. Includes the following: Rare Streptococcus agalactiae (Group B Streptococci) * ??* ??* ??* ??* ??* ??* ??* ??* ??* ??* ??* ??* ??* ??* ??* ??* ??* ??* ??* Resistance to penicillin in Group B Streptococcus has not been reported. ??Group B Streptococci are universally susceptible to beta-lactam antibiotics and vancomycin. Routine susceptibility testing is not performed. In penicillin allergic patients, please contact the laboratory at [phone] to request susceptibility testing * ??* ??* ??* ??* ??* ??* ??* ??* ??* ??* ??* ??* ??* ??* ??* ??* ??* ??* ??* (.) [facility] Comment:Testing performed by : [facility], [address] [place]., [address] Organism MIXED MICROORGANISMS. [facility] Organism STREPTOCOCCUS AGALACTIAE (GROUP B STREPTOCOCCI) [facility] Wound (Abdominal, right lower quadrant) 04/15/2023 6:26 PM CDT 04/15/2023 10:09 PM CDT Narrative [facility] - 04/22/2023 7:17 AM CDT Specimen received on an ESwab. Testing performed by [facility] ([phone]) Specimens submitted from normally sterile body sites will have all bacterial morphotypes identified. Specimens that contain grossly mixed nish and/or are from body sites that are not normally sterile will be examined for Staphylococcus aureus, Pseudomonas aeruginosa, beta-hemolytic strep, vancomycin-resistant Enterococcus, Bacteroides, Parabacteroides, Clostridium perfringens and fungus. If any of these are isolated, the organism will be reported. Current interpretive data was last revised on 2019. us Alyson SIBLEY LAB MICROBIOLOGY - GENERAL OR DERABLES Final Result [facility] [address] [facility] Department [place] [address] * (ABNORMAL) Aerobic and anaerobic culture and gram stain Wound Heel, left (04/15/2023 5:37 PM CDT) Direct Specimen Exam Stain: No polymorphonuclear leukocytes seen. Abundant Gram Positive Cocci Abundant Gram Positive Bacilli Abundant Gram Negative Bacilli [facility] Comment:Testing performed by : [facility], [address] [place]., [address] Report Final Report: Few Mixed microorganisms. Includes the following: Few Streptococcus agalactiae (Group B Streptococci) * ??* ??* ??* ??* ??* ??* ??* ??* ??* ??* ??* ??* ??* ??* ??* ??* ??* ??* ??* Resistance to penicillin in Group B Streptococcus has not been reported. ??Group B Streptococci are universally susceptible to beta-lactam antibiotics and vancomycin. Routine susceptibility testing is not performed. In penicillin allergic patients, please contact the laboratory at [phone] to request susceptibility testing * ??* ??* ??* ??* ??* ??* ??* ??* ??* ??* ??* ??* ??* ??* ??* ??* ??* ??* ??* (.) [facility] Comment:Testing performed by : [facility], [address] [place]., [address] Organism STREPTOCOCCUS AGALACTIAE (GROUP B STREPTOCOCCI) [facility] Organism MIXED MICROORGANISMS. [facility] Wound (Heel, left) 04/15/2023 5:37 PM CDT 04/15/2023 7:51 PM CDT Narrative [facility] - 04/22/2023 1:34 PM CDT Specimen received on an ESwab. Testing performed by [facility] ([phone]) Specimens submitted from normally sterile body sites will have all bacterial morphotypes identified. Specimens that contain grossly mixed nish and/or are from body sites that are not normally sterile will be examined for Staphylococcus aureus, Pseudomonas aeruginosa, beta-hemolytic strep, vancomycin-resistant Enterococcus, Bacteroides, Parabacteroides, Clostridium perfringens and fungus. If any of these are isolated, the organism will be reported. Current interpretive data was last revised on 2019. Alyson SIBLEY LAB MICROBIOLOGY - GENERAL OR DERABLES Final Result Performing Organization Address [facility] Co de Phone Number [address] [address] * (ABNORMAL) Troponin T high-sensitivity 4-hour (04/15/2023 5:37 PM CDT) Pathologist [facility] Trop T hs 94(H) <=14 ng/L [facility] Comment: Interpretive Data For further hscTnT resources including the diagnostic algorithm and an aid in interpretation, copy and paste this link: https://nrl.testcatalog.org/show/hsTrop Current Interpretive Data last revised 2020. Trop T hs delta -3 ng/L [facility] Trop T hs interp Insignificant [facility] Blood 04/15/2023 5:37 PM CDT 04/15/2023 5:42 PM CDT Sam Chao MD LAB BLOOD ORDERABLES Final Result Performing Organization Address [facility] Co de Phone Number [address] [address] * Influenza A/B, RSV, and COVID-19 PCR Nasopharyngeal (04/15/2023 4:52 PM CDT) [facility] COVID-19 RNA Negative Negative [facility] Influenza A RNA Negative Negative [facility] Influenza B RNA Negative Negative [facility] RSV RNA Negative Negative [facility] Comment: Interpretive data: This test is performed using the [employer] Xpert Xpress CoV-2/Flu/RSV plus assay. This is a multiplex, real-time reverse transcriptase PCR assay intended for the qualitative detection of nucleic acid from SARS-CoV-2, influenza A, influenza B, and respiratory syncytial virus. This assay has been reviewed by the FDA for Emergency Use Authorization (EUA). The performance characteristics have been verified by the performing laboratory. Results must be considered in the clinical context, and a negative result does not rule out infection. Interpretive Data last revised 2021. [facility] 04/15/2023 4: 52 PM CDT 04/15/2023 5:09 PM CDT Narrative [facility] - 04/15/2023 5:53 PM CDT Is the Patient experiencing symptoms consistent with COVID?->No Reason for testing?->Bed placement or semi-private room Amilcar Hancock MD LAB MICROBIOLOGY - GENERAL OR DERABLES Final Result [facility] [address] [facility] Department [place] [address] * NM Pulmonary Perfusion Imaging (04/15/2023 4:19 PM CDT) Anatomical Region Laterality Modality Body N/A Nuclear Medicine 04/15/2023 4:25 PM CDT Narrative 04/15/2023 4:31 PM CDT EXAM DESCRIPTION: ?? NM PULMONARY PERFUSION IMAGING RADIOPHARMACEUTICAL: 4 ??mCi Tc-99m MAA via a ??right antecubital vein ??IV site REASON FOR STUDY: ?? Chest pain. ??Shortness of breath and cough. TECHNIQUE: Limited multi-planar perfusion scintigrams were obtained. COMPARISON: ?? Chest radiograph 04/15/2023 FINDINGS: Perfusion images obtained in the anterior, anterior oblique, and lateral projections were obtained. ??The posterior and posterior oblique projections were not obtained. ??There is mild enlargement of the cardiomediastinal silhouette. ??There are no large segmental perfusion defects on the provided images. IMPRESSION: ?? 1. ?? Limited perfusion lung scan with a low probability for pulmonary embolism. THIS IS AN ELECTRONICALLY VERIFIED FINAL REPORT 04/15/2023 4:31 PM - Electronically signed by ??Amor Rodriguez M.D. D: ??04/15/2023 4:31 PM T: Report ID: [id number] Reading Location: ??[id number] Procedure Note Amor Rodriguez MD - 04/15/2023 EXAM DESCRIPTION: NM PULMONARY PERFUSION IMAGING RADIOPHARMACEUTICAL: 4 mCi Tc-99m MAA via a right antecubital vein IVsite REASON FOR STUDY: Chest pain. Shortness of breath and cough. TECHNIQUE: Limited multi-planar perfusion scintigrams were obtained. COMPARISON: Chest radiograph 04/15/2023 FINDINGS: Perfusion images obtained in the anterior, anterior oblique, and lateral projections were obtained. The posterior and posterior obliqueprojections were not obtained. There is mild enlargement of the cardiomediastinal silhouette. There are no large segmental perfusion defects on theprovided images. IMPRESSION: 1. Limited perfusion lung scan with a low probability for pulmonary embolism. THIS IS AN ELECTRONICALLY VERIFIED FINAL REPORT 04/15/2023 4:31 PM - Electronically signed by Amor Rodriguez M.D. LB T: Report ID: [id number] Reading Location: [place] [address] Sam Chao MD IMG NM PROCEDURES Fin al Result * Creatine kinase (CK), total (04/15/2023 3:43 PM CDT) CK 177 30 - 200 Units/L [facility] Blood 04/15/2023 3:43 PM CDT 04/15/2023 3:44 PM CDT Amilcar Hancock MD LAB BLOOD ORDERABLES Final Re sult [facility] [address] [facility] Department [place] [address] * (ABNORMAL) Troponin T high-sensitivity 2-hour (04/15/2023 3:43 PM CDT) Trop T hs 87(H) <=14 ng/L [facility] Comment: Interpretive Data For further hscTnT resources including the diagnostic algorithm and an aid in interpretation, copy and paste this link: https://nrl.testcatalog.org/show/hsTrop Current Interpretive Data last revised 2020. Trop T hs delta -10(C) ng/L [facility] Comment:Critical Result call ed to and read back by [email or web address], DATE: 2023-04-15 16:18:31 BY: [id number] Trop T hs interp Significa nt(C) [facility] Comment:Critical Result call ed to and read back by [id number], DATE: 2023-04-15 16:18:31 BY: [email or web address] Blood 04/15/2023 3:43 PM CDT 04/15/2023 3:44 PM CDT Sam Chao MD LAB BLOOD ORDERABLES Final Result [facility] [address] [facility] Department [place] [address] * eGFR (04/15/2023 3:43 PM CDT) eGFR 24 mL/min/1. 73 m2 [facility] Comment: Interpretive Data Reference Interval Normal ?>/= [...] interpretive data was last reviewed 2021. Blood 04/15/2023 3:43 PM CDT 04/15/2023 3:44 PM CDT Sultan Sofía Muro MD LAB BLOOD ORDERABLES Final Re sult Performing Organization Address [facility] Co de Phone Number [facility] [email or web address] [address] * (ABNORMAL) Basic metabolic panel (04/15/2023 3:43 PM CDT) [facility] Sodium 136 135 - 145 mmol/L [facility] Potassium, pl 4.3 3.3 - 4.9 mmol/L [facility] Chloride 107 97 - 110 mmol/L [facility] CO2 18(L) 22 - 32 mmol/L [facility] Anion gap 11 2 - 15 mmol/L [facility] BUN 40(H) 8 - 25 mg/dL [facility] Creatinine 2.70(H) 0.60 - 1.10 mg/dL [facility] Glucose 193 70 - 199 mg/dL [facility] Comment: Interpretive Data Fasting glucose >/= 126 [...] classification and Diagnosis of Diabetes Diabetes Care 202; 46: S19-S40. Current interpretive data was last revised 2022. Calcium 7.9(L) 8.5 - 10.3 mg/dL [facility] Blood 04/15/2023 3:43 PM CDT 04/15/2023 3:44 PM CDT Sultan Sofía Muro MD LAB BLOOD ORDERABLES Final Re sult Performing Organization Address [facility] [facility] Co de Phone Number [facility] [email or web address] [address] * Blood culture Blood Peripheral (04/15/2023 2:46 PM CDT) Report Final Report: No growth [facility] Comment:Testing performed by : [facility], [address] [place] [address] Blood (Peripheral) 04/15/2023 2:46 PM CDT 04/15/2023 8:23 PM CDT Narrative [facility] - 04/20/2023 7:01 AM CDT From a different site than #1. Draw Blood cultures before administration of Antibiotics Collection->Peripheral 1. ?Blood cultures are incubated for 4 days on a continuously monitored blood culture system. The first report of a negative culture is issued within 24 hours of receipt of the specimen in the laboratory. 2. ?Positive culture results are reported as soon as they are detected. 3. ?The most important factor for detection of microbes in the setting of bloodstream infection is the volume of blood submitted for culture. Failure to collect an optimal blood volume can result in false negative blood cultures. For pediatric patients, the recommended blood volume to collect is 1 mL of blood per year of patient age (up to 20 mL) per blood culture set. For adult patients, 20 mL of blood, divided equally between aerobic and anaerobic blood culture bottles, is recommended for each blood culture set. 4. ?For blood cultures with Gram-positive cocci, a rapid molecular test for organism identification may be performed using the [employer] Gram-Positive Blood Culture Assay. This assay detects microbial DNA in positive blood culture broth via hybridization of target DNA to capture oligonucleotides on a microarray. This assay has been cleared by the [place] Food and Drug Administration and its performance characteristics have been verified by the [facility]. 5. ?For questions about this culture, contact the Microbiology Laboratory at [phone]. Interpretive data was last revised on 2020. Sam Chao MD LAB MICROBIOLOGY - [facility] ORDERABLES Final Result [facility] [address] [facility] Department [place] [address] * Blood culture Blood Peripheral (04/15/2023 2:33 PM CDT) Report Final Report: No growth [facility] Comment:Testing performed by : [facility], [address] [place]., [address] Blood (Peripheral) 04/15/2023 2:33 PM CDT 04/15/2023 8:23 PM CDT Narrative [facility] - 04/20/2023 7:01 AM CDT Draw Blood cultures before administration of Antibiotics Collection->Peripheral 1. ?Blood cultures are incubated for 4 days on a continuously monitored blood culture system. The first report of a negative culture is issued within 24 hours of receipt of the specimen in the laboratory. 2. ?Positive culture results are reported as soon as they are detected. 3. ?The most important factor for detection of microbes in the setting of bloodstream infection is the volume of blood submitted for culture. Failure to collect an optimal blood volume can result in false negative blood cultures. For pediatric patients, the recommended blood volume to collect is 1 mL of blood per year of patient age (up to 20 mL) per blood culture set. For adult patients, 20 mL of blood, divided equally between aerobic and anaerobic blood culture bottles, is recommended for each blood culture set. 4. ?For blood cultures with Gram-positive cocci, a rapid molecular test for organism identification may be performed using the [employer] Gram-Positive Blood Culture Assay. This assay detects microbial DNA in positive blood culture broth via hybridization of target DNA to capture oligonucleotides on a microarray. This assay has been cleared by the [place] Food and Drug Administration and its performance characteristics have been verified by the [facility]. 5. ?For questions about this culture, contact the Microbiology Laboratory at [phone]. Interpretive data was last revised on 2020. Sam Chao MD LAB MICROBIOLOGY - [facility] ORDERABLES Final Result [facility] [address] [facility] Department [place] [address] * XR Foot Right 3 or More Views (04/15/2023 2:10 PM CDT) Anatomical Region Laterality Modality Lower Extremities, Foot Right Computed Radiography 04/15/2023 2:43 PM CDT Narrative 04/15/2023 2:51 PM CDT EXAM DESCRIPTION: XR FOOT RIGHT 3 OR MORE VIEWS REASON FOR STUDY: Wound infection ?? TECHNIQUE: 3 ??radiographic view(s) of the ??right foot . COMPARISON: 02/20/2023 FINDINGS: Plantar soft tissue ulceration of the hindfoot with underlying soft tissue gas. ?? There is diffuse soft tissue swelling of the foot, particularly involving the dorsal aspect of the mid to forefoot. ??No radiopaque foreign bodies. ??There is suspected mild osseous cortical erosion involving the plantar aspect of the calcaneus when compared to the prior exam. ??No acute fracture or dislocation. IMPRESSION: Prominent soft tissue ulceration of the plantar aspect of the hindfoot with underlying soft tissue gas. ??Suspected osseous cortical erosion involving the plantar aspect of the calcaneus, concerning for acute osteomyelitis. THIS IS AN ELECTRONICALLY VERIFIED FINAL REPORT 04/15/2023 2:51 PM - Electronically signed by ??Rio Smith M.D. KR D: ??04/15/2023 2:51 PM T: Report ID: [id number] Reading Location: ??[id number] Procedure Note Rio Smith MD - 04/15/2023 EXAM DESCRIPTION: XR FOOT RIGHT 3 OR MORE VIEWS REASON FOR STUDY: Wound infection TECHNIQUE: 3 radiographic view(s) of the right foot . COMPARISON: 02/20/2023 FINDINGS: Plantar soft tissue ulceration of the hindfoot with underlyingsoft tissue gas. There is diffuse soft tissue swelling of the foot,particularly involving the dorsal aspect of the mid to forefoot. No radiopaque foreign bodies. There is suspected mild osseous cortical erosion involving the plantar aspect of the calcaneus when compared to the prior exam. No acute fracture or dislocation. IMPRESSION: Prominent soft tissue ulceration of the plantar aspect of the hindfoot with underlying soft tissue gas. Suspected osseous corticalerosion involving the plantar aspect of the calcaneus, concerning for acute osteomyelitis. THIS IS AN ELECTRONICALLY VERIFIED FINAL REPORT 04/15/2023 2:51 PM - Electronically signed by Rio PHILLIPS T: Report ID: [id number] Reading Location: [id number] Sam Chao MD IMG XR PROCEDURES Fin al Result * XR Chest 1 Vw Portable (04/15/2023 2:10 PM CDT) Anatomical Region Laterality Modality Body, Chest N/A Computed Radiogr aphy 04/15/2023 2:36 PM CDT Narrative 04/15/2023 2:43 PM CDT EXAM DESCRIPTION: XR CHEST 1 VIEW REASON FOR STUDY: Shortness of breath ?? Pt with sob, weakness x 2-3 days ??Hx lg necrotic wnd on rt foot that she is being treated for ??Pt is lt leg amputee above the knee ?? TECHNIQUE: 1 ??radiographic view(s) of the chest. COMPARISON: None FINDINGS: LUNGS: ??Diffuse bilateral interstitial opacities. ??No focal consolidation. ??No pneumothorax. ??No large pleural effusion. HEART/MEDIASTINUM: ??Cardiac silhouette is enlarged.. ??Mediastinal and hilar contours appear normal. LINES/TUBES: ??None. BONES: ??No acute osseous abnormality. IMPRESSION: Findings are suggestive of pulmonary edema. THIS IS AN ELECTRONICALLY VERIFIED FINAL REPORT 04/15/2023 2:43 PM - Electronically signed by ??Rio PHILLIPS D: ??04/15/2023 2:43 PM T: Report ID: [id number] Reading Location: ??[id number] Procedure Note Rio Smith MD - 04/15/2023 EXAM DESCRIPTION: XR CHEST 1 VIEW REASON FOR STUDY: Shortness of breath Pt with sob, weakness x 2-3 days Hx lg necrotic wnd on rt foot that sheis being treated for Pt is lt leg amputee above the knee TECHNIQUE: 1 radiographic view(s) of the chest. COMPARISON: None FINDINGS: LUNGS: Diffuse bilateral interstitial opacities. No focal consolidation. No pneumothorax. No large pleural effusion. HEART/MEDIASTINUM: Cardiac silhouette is enlarged.. Mediastinal andhilar contours appear normal. LINES/TUBES: None. BONES: No acute osseous abnormality. IMPRESSION: Findings are suggestive of pulmonary edema. THIS IS AN ELECTRONICALLY VERIFIED FINAL REPORT 04/15/2023 2:43 PM - Electronically signed by Rio Smith M.D. KR T: Report ID: [id number] Reading Location: [id number] Sam Chao MD IMG XR PROCEDURES Fin al Result * (ABNORMAL) Hemoglobin, total, art (04/15/2023 1:50 PM CDT) [facility] Hemoglobin, Total, Arterial 8.5(L) 11.9 - 15.5 g/dL [facility] Blood 04/15/2023 1:50 PM CDT 04/15/2023 1:55 PM CDT Sam Chao MD LAB BLOOD ORDERABLES Final Result Performing Organization Address City/[facility] Co de Phone Number [address] [place] [address] * Carboxyhemoglobin, art (04/15/2023 1:50 PM CDT) [facility] Carboxyhemoglob in, arterial 1.7 0.0 - 2.9 % [facility] Blood 04/15/2023 1:50 PM CDT 04/15/2023 1:55 PM CDT Sam Chao MD LAB BLOOD ORDERABLES Final Result Performing Organization Address City/[facility] Co de Phone Number [address] [email or web address] [address] * Lactate, whole blood (04/15/2023 1:50 PM CDT) [facility] Lactate, bld 0.7 0.7 - 2.0 mmol/L [facility] Blood 04/15/2023 1:50 PM CDT 04/15/2023 1:55 PM CDT us Sam Chao MD LAB BLOOD ORDERABLES Final Result Performing Organization Address City/[facility]/ZIP Co de Phone Number [address] [email or web address] [address] * Glucose, whole blood (04/15/2023 1:50 PM CDT) [facility] Glucose, bld 199 70 - 199 mg/dL [facility] Blood 04/15/2023 1:50 PM CDT 04/15/2023 1:55 PM CDT us Sam Chao MD LAB BLOOD ORDERABLES Final Result Performing Organization Address [facility] Co de Phone Number [address] [email or web address] [address] * Electrolytes, whole blood (04/15/2023 1:50 PM CDT) [facility] Sodium, Whole Blood 135 135 - 145 mmol/L [facility] Potassium, bld 3.9 3.3 - 4.9 mmol/L [facility] Ca, ionized, bld 4.76 4.45 - 5.25 mg/dL [facility] Blood 04/15/2023 1:50 PM CDT 04/15/2023 1:55 PM CDT us Sam Chao MD LAB BLOOD ORDERABLES Final Result Performing Organization Address City/[facility] Co de Phone Number [address] [email or web address] [address] * (ABNORMAL) Blood gas, arterial (04/15/2023 1:50 PM CDT) [facility] pH, Art 7.40 7.35 - 7.45 [facility] PCO2, Arterial 36 35 - 45 mmHg [facility] PO2, Arterial 49(C) 83 - 108 mmHg [facility] HCO3 Art (Calculated) 22 20 - 30 mmol/L [facility] BE, art -2 mmol/L [facility] Comment: Interpretive Data No Reference Range Established Current Interpretive Data was last revised on 2017. O2 Sat Art (Measured) 78(L) 90 - 95 % [facility] Blood 04/15/2023 1:50 PM CDT 04/15/2023 1:55 PM CDT Sam Chao MD LAB BLOOD ORDERABLES Final Result Performing Organization Address [facility] Co de Phone Number [facility] [address] [facility] Department [place] [address] * ECG 12 lead (04/15/2023 1:43 PM CDT) Pathologist [facility] Ventricular Rate EKG/Min 80 BPM [facility] Atrial Rate 80 BPM [facility] MS-Interval (MSEC) 148 ms [facility] QRS-Interval (MSEC) 78 ms [facility] QT-Interval (MSEC) 374 ms [facility] QTc 431 ms [facility] P Wayne 31 degrees [facility] R Wayne 22 degrees [facility] T Wayne 8 degrees [facility] Diagnosis Normal sinus rhythm Low voltage QRS Borderline ECG When compared with ECG of 13-DEC-2017 18:28, No significant change was found [facility] 04/15/2023 1:43 PM CDT 04/17/2023 9:09 AM CDT Sam Chao MD ECG ORDERABLES Final Result Performing Organization Address [facility] Co de Phone Number [facility] * eGFR (04/15/2023 1:41 PM CDT) Pathologist [facility] eGFR 24 mL/min/1. 73 m2 [facility] Comment: Interpretive Data Reference Interval Normal ?>/= [...] interpretive data was last reviewed 2021. Blood 04/15/2023 1:41 PM CDT 04/15/2023 1:46 PM CDT Sam Chao MD LAB BLOOD ORDERABLES Final Result [facility] [address] [facility] Department of Laboratories [place], [place] [id number] * (ABNORMAL) Manual Differential (04/15/2023 1:41 PM CDT) Differential Auto [facility] Neutrophil abs 28.4(H) 1.7 - 6.5 K/cumm [facility] Imm gran abs 0.6(H) 0.0 - 0.1 K/cumm [facility] Lymphocyte abs 1.2 0.8 - 3.3 K/cumm [facility] Monocyte abs 1.7(H) 0.2 - 0.8 K/cumm [facility] Eosinophil abs 0.1 0.0 - 0.5 K/cumm [facility] Basophil abs 0.1 0.0 - 0.1 K/cumm [facility] Neutrophil pct 88.5 % [facility] Comment: Interpretive Data Percent cell count reference ranges are not reported, since discordance with absolute values may lead to misinterpretation of CBC data. Current Interpretive Data was last revised on 2018. Imm gran pct 2.0 % [facility] Comment: Interpretive Data Percent cell count reference ranges are not reported, since discordance with absolute values may lead to misinterpretation of CBC data. Current Interpretive Data was last revised on 2018. Lymphocyte pct 3.8 % [facility] Comment: Interpretive Data Percent cell count reference ranges are not reported, since discordance with absolute values may lead to misinterpretation of CBC data. Current Interpretive Data was last revised on 2018. Monocyte pct 5.3 % [facility] Comment: Interpretive Data Percent cell count reference ranges are not reported, since discordance with absolute values may lead to misinterpretation of CBC data. Current Interpretive Data was last revised on 2018. Eosinophil pct 0.2 % [facility] Comment: Interpretive Data Percent cell count reference ranges are not reported, since discordance with absolute values may lead to misinterpretation of CBC data. Current Interpretive Data was last revised on 2018. Basophil pct 0.2 % [facility] Comment: Interpretive Data Percent cell count reference ranges are not reported, since discordance with absolute values may lead to misinterpretation of CBC data. Current Interpretive Data was last revised on 2018. RBC morphology Present(A) [facility] Hypochromasia 3-7/HPF(A) [facility] Platelet estimate Automated Count Confirmed [facility] Blood 04/15/2023 1:41 PM CDT 04/15/2023 1:46 PM CDT Sam Chao MD LAB BLOOD ORDERABLES Final Result [facility] [address] [facility] Department [place] [address] * (ABNORMAL) Differential, auto (04/15/2023 1:41 PM CDT) Neutrophil abs 28.4(H) 1.7 - 6.5 K/cumm [facility] Imm gran abs 0.6(H) 0.0 - 0.1 K/cumm [facility] Lymphocyte abs 1.2 0.8 - 3.3 K/cumm [facility] Monocyte abs 1.7(H) 0.2 - 0.8 K/cumm [facility] Eosinophil abs 0.1 0.0 - 0.5 K/cumm [facility] Basophil abs 0.1 0.0 - 0.1 K/cumm [facility] Neutrophil pct 88.5 % [facility] Comment: Interpretive Data Percent cell count reference ranges are not reported, since discordance with absolute values may lead to misinterpretation of CBC data. Current Interpretive Data was last revised on 2018. Imm gran pct 2.0 % [facility] Comment: Interpretive Data Percent cell count reference ranges are not reported, since discordance with absolute values may lead to misinterpretation of CBC data. Current Interpretive Data was last revised on 2018. Lymphocyte pct 3.8 % [facility] Comment: Interpretive Data Percent cell count reference ranges are not reported, since discordance with absolute values may lead to misinterpretation of CBC data. Current Interpretive Data was last revised on 2018. Monocyte pct 5.3 % [facility] Comment: Interpretive Data Percent cell count reference ranges are not reported, since discordance with absolute values may lead to misinterpretation of CBC data. Current Interpretive Data was last revised on 2018. Eosinophil pct 0.2 % [facility] Comment: Interpretive Data Percent cell count reference ranges are not reported, since discordance with absolute values may lead to misinterpretation of CBC data. Current Interpretive Data was last revised on 2018. Basophil pct 0.2 % [facility] Comment: Interpretive Data Percent cell count reference ranges are not reported, since discordance with absolute values may lead to misinterpretation of CBC data. Current Interpretive Data was last revised on 2018. Blood 04/15/2023 1:41 PM CDT 04/15/2023 1:46 PM CDT Sam Chao MD LAB BLOOD ORDERABLES Final Result Performing Organization Address [facility] Co de Phone Number [address] [address] * aPTT (04/15/2023 1:41 PM CDT) aPTT 33 22 - 37 sec [facility] Comment: Interpretive data aPTT test has not been evaluated for monitoring heparin therapy. The anti-Xa is the preferred test. Current interpretive data was last revised on 2019. Blood 04/15/2023 1:41 PM CDT 04/15/2023 1:46 PM CDT Sam Chao MD LAB BLOOD ORDERABLES Final Result Performing Organization Address [facility] Co de Phone Number [address] [address] * (ABNORMAL) Protime-INR (04/15/2023 1:41 PM CDT) PT 15.9(H) 12.0 - 14.6 sec [facility] Comment:Ref Range High INR 1.3(H) 0.9 - 1.2 [facility] Comment: Ref Range High Interpretive data Oral anticoagulant therapeutic ranges: Venous thromboembolism prophylaxis or treatment: 2.0-3.0 CARDIOLOGY Standard range: 2.0-3.0 High-intensity range: 2.5-3.5 Refer to indication-specific guidelines for appropriate target ranges for prosthetic heart valve replacement. Current interpretive data was last revised on 2019. Blood 04/15/2023 1:41 PM CDT 04/15/2023 1:46 PM CDT Sam Chao MD LAB BLOOD ORDERABLES Final Result Performing Organization Address [facility] Co de Phone Number [address] [address] * (ABNORMAL) D-dimer, quantitative (04/15/2023 1:41 PM CDT) D-Dimer 6,270(H) <=499 ng/mL FEU [facility] Comment: Interpretive data FDA approved the D-dimer, in conjunction with a low or moderate pretest probability score, to exclude venous thromboembolic events (VTE) (PE and DVT) in outpatients when the D-dimer result is < 500 ng/ml FEU. ?? Evidence supports using an age-adjusted D-dimer cut-off for outpatients older than 50 (age x 10) to improve specificity without sacrificing sensitivity. Example: age 68, VTE cut-off 680 ng/ml FEU. References; Schharinder HT et al. Brit Med J. 2013;346:f2492. Delfin et al. Annals Int Med. 2015;163:701-11. Current interpretive data was last revised on 2019. Blood 04/15/2023 1:41 PM CDT 04/15/2023 1:46 PM CDT Sam Chao MD LAB BLOOD ORDERABLES Final Result Performing Organization Address City/[facility]/ZIP Co de Phone Number [address] [employer] [place], [place] [id number] * Sepsis Lactate w/ Reflex (04/15/2023 1:41 PM CDT) [facility] Sepsis Lactate 0.9 0.7 - 2.0 mmol/L [facility] Blood 04/15/2023 1:41 PM CDT 04/15/2023 1:44 PM CDT Sam Chao MD LAB BLOOD ORDERABLES Final Result [address] [email or web address] [address] * (ABNORMAL) Pro B-type natriuretic peptide (04/15/2023 1:41 PM CDT) Pathologist [facility] NT-proBNP 13,499(H) <=300 pg/mL [facility] Comment: Interpretive Comments: A. Dyspnea in Acute Care Setting All Ages: ?< 300 pg/ml, acute heart failure unlikely. < 50 yrs: ?300 - 450 pg/ml, further investigation warranted. ? > 450 pg/ml, acute heart failure likely. 50 - 74 yrs: ? 300 - 900 pg/ml, further investigation warranted. ? > 900 pg/ml, acute heart failure likely . > or = 75 yrs: ? 450 - 1800 pg/ml, further investigation warranted. ? > 1800 pg/ml, acute heart failure likely. B. Non-acute Setting < 75 yrs ? < 125 pg/ml, rules out heart failure. ? > or = 125 pg/ml, further investigation warranted. > or = 75 yrs ?< 450 pg/ml, rules out heart failure. ? > or = 450 pg/ml, further investigation warranted. - Knowledge of each individual patient's NT-proBNP range may be more useful than using similar cut-points for every patient. Please note that marked elevations in NT-proBNP levels may be observed in state other than Left Ventricular Congestive Failure, including: acute coronary syndromes, right heart strain/failure (including pulmonary embolism and cor pulmonale), critical illness, renal failure, as well as advanced age. - References: 1. Sanaz MENDIOLA et.al. Eur Heart J. 2006:27:330-337. 2. Heena RW, Raegan BRITO. J. AM Florina Cardiol: Cardiovasc Imag. 2009;2: 216- 225. Interpretive Data Last Revised Date: 2018. Blood 04/15/2023 1:41 PM CDT 04/15/2023 1:46 PM CDT us Sam Chao MD LAB BLOOD ORDERABLES Final Result Performing Organization Address City/[facility] Co de Phone Number [facility] [address] [address] * (ABNORMAL) Troponin T high-sensitivity series (baseline, 2hr, 4hr, 6hr) (04/15/2023 1:41 PM CDT) [facility] Trop T hs 97(H) <=14 ng/L [facility] Comment: Interpretive Data For further hscTnT resources including the diagnostic algorithm and an aid in interpretation, copy and paste this link: [email or web address].testcatalog.org/show/hsTrop Current Interpretive Data last revised 2020. Blood 04/15/2023 1:41 PM CDT 04/15/2023 1:46 PM CDT Sam Chao MD LAB BLOOD ORDERABLES Final Result Performing Organization Address [facility] Co de Phone Number [facility] [address] [email or web address] [address] * (ABNORMAL) CBC with auto differential (04/15/2023 1:41 PM CDT) [facility] WBC 32.1(H) 3.8 - 9.9 K/cumm [facility] Hgb 8.7(L) 11.9 - 15.5 g/dL [facility] Hct 27.6(L) 35.6 - 45.5 % [facility] Plt 669(H) 150 - 400 K/cumm [facility] MPV 9.2 9.1 - 12.3 fL [facility] RBC 3.27(L) 3.90 - 5.20 M/cumm [facility] MCV 84.4 81.3 - 96.4 fL [facility] MCH 26.6(L) 27.1 - 33.3 pg [facility] MCHC 31.5(L) 32.3 - 35.7 g/dL [facility] RDW CV 16.9(H) 11.1 - 14.9 % [facility] RDW SD 52.6(H) 35.7 - 48.1 fL [facility] [facility] NRBC abs 0.28(H) 0.00 - 0.01 K/cumm [facility] Blood 04/15/2023 1:41 PM CDT 04/15/2023 1:46 PM CDT Sam Chao MD LAB BLOOD ORDERABLES Edited Result - Final [facility] [address] [facility] Department [place] [address] * (ABNORMAL) Comprehensive metabolic panel (04/15/2023 1:41 PM CDT) Sodium 136 135 - 145 mmol/L [facility] Potassium, pl 4.0 3.3 - 4.9 mmol/L [facility] Chloride 103 97 - 110 mmol/L [facility] CO2 24 22 - 32 mmol/L [facility] Anion gap 9 2 - 15 mmol/L [facility] BUN 38(H) 8 - 25 mg/dL [facility] Creatinine 2.70(H) 0.60 - 1.10 mg/dL [facility] Glucose 192 70 - 199 mg/dL [facility] Comment: Interpretive Data Fasting glucose >/= 126 [...] classification and Diagnosis of Diabetes Diabetes Care 202; 46: S19-S40. Current interpretive data was last revised 2022. Calcium 8.1(L) 8.5 - 10.3 mg/dL [facility] Bilirubin, total 0.5 0.1 - 1.2 mg/dL [facility] Protein, pl 6.1(L) 6.5 - 8.5 g/dL [facility] Albumin 1.8(L) 3.5 - 5.0 g/dL [facility] Alk phos 381(H) 40 - 130 Units/L [facility] ALT 31 7 - 45 Units/L [facility] AST 25 10 - 45 Units/L [facility] Blood 04/15/2023 1:41 PM CDT 04/15/2023 1:46 PM CDT Sam Chao MD LAB BLOOD ORDERABLES Final Result [facility] [address] [facility] Department [place] [address] documented in this encounter Visit Diagnoses Diagnosis Rectal bleed- Primary Hemorrhage of rectum and anus Shortness of breath Diabetes mellitus with coincident hypertension (HCC) Respiratory insufficiency Other dyspnea and respiratory abnormality Abdominal pannus Heel ulceration, right, with unspecified severity (HCC) Acute on chronic congestive heart failure, unspecified heart failure type (HCC) Acute renal failure superimposed on chronic kidney disease, unspecified CKD stage, unspecified acute renal failure type Chronic wound infection of abdomen, initial encounter Rectal bleed Hemorrhage of rectum and anus Acute diastolic congestive heart failure (CMS/HCC) (HCC) Type II diabetes mellitus with foot ulcer (HCC) Hypertension Unspecified essential hypertension Acute respiratory failure with hypoxia (CMS/HCC) (HCC) Diarrhea Acute kidney failure (HCC) Acute kidney failure, unspecified Elevated troponin Other abnormal blood chemistry Osteomyelitis (HCC) Unspecified osteomyelitis, site unspecified Wounds, multiple Open wound(s) (multiple) of unspecified site(s), without mention of complication 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 Suggested initial rate - 60 mL/hr. In patients with normal plasma volume, do not exceed 1 mL/minute., Indications: Nephrotic SyndromeIndications:Nephrotic Syndrome New Bag 04/23/2023 9:35 AM CDT 25 g New Bag 04/22/2023 8:42 PM CDT 25 g New Bag 04/22/2023 3:20 PM CDT 25 g bumetanide (BUMEX) tablet 2 mg 2 mg, oral, 2 times daily (for diuretics), First dose on Fri04/24/23 at 0945 Given 04/25/2023 5:53 PM CDT 2 mg Given 04/25/2023 10:10 AM CDT 2 mg Given 04/24/2023 3:18 PM CDT 2 mg buPROPion (WELLBUTRIN) tablet 50 mg 50 mg, oral, 2 times daily, First dose on Fri04/21/23 at 2300, Indications: major depressive disorderIndications:major depressive disorder Given 04/25/2023 10:10 AM CDT 50 mg Given 04/21/2023 10:26 PM CDT 50 mg Carrier Fluids for Secondary Infusion - 0.9% Sodium Chloride 30 mL, intravenous, As needed, For priming tubing and/or flushing, Starting on Fri04/15/23 at 1849, 0-250 ml/hr to flush line after IV infusions when no maintenance IV ordered. Infuse 30mL at the same rate as the secondary infusion. Run as primary IV, not intended for KVO. Given 04/25/2023 5:27 PM CDT 30 mL Given 04/22/2023 8:54 PM CDT 30 mL Given 04/21/2023 8:22 PM CDT 30 mL Carrier Fluids for Secondary Infusion - 0.9% Sodium Chloride 30 mL, intravenous, As needed, For priming tubing and/or flushing, Starting on Fri04/21/23 at 2012, 0-250ml/hr to flush line after IV infusions when no maintenance IV ordered. Infuse 30mL at the same rate as the secondary infusion. Run as primary IV, not intended for KVO cefepime (MAXIPIME) 1,000 mg in sodium chloride 0.9% 100 mL IVPB 1,000 mg, intravenous, at 200 mL/hr, Administer over 30 Minutes, Every 8 hours scheduled, First dose on Fri04/15/23 at 2100, Mini-Bag Plus bag, Indications: Bone/Joint Infection, SepsisIndications:Bone/Joint Infection,Sepsis New Bag 04/16/2023 6:38 AM CDT 1,000 mg 200 mL/hr New Bag 04/15/2023 9:44 PM CDT 1,000 mg 200 mL/hr cefepime (MAXIPIME) 2,000 mg in sodium chloride 0.9% 100 mL IVPB 2,000 mg, intravenous, at 200 mL/hr, Administer over 30 Minutes, Once, On Fri04/15/23 at 1442, For 1 dose, Mini-Bag Plus bag, Indications: Skin/Soft Tissue InfectionIndications:Skin/Soft Tissue Infection New Bag 04/15/2023 2:55 PM CDT 2,000 mg 200 mL/hr cefTRIAXone (ROCEPHIN) 2,000 mg/20 mL in sterile water (premix) 2,000 mg 2,000 mg, intravenous, at 1,200 mL/hr, Administer over 1 Minutes, Every 24 hours scheduled, First dose on Fri04/16/23 at 1400, Indications: Other (complete free text reason below), OsteomyelitisIndications:Other (complete free text reason below),Osteomyelitis Given 04/25/2023 10:09 AM CDT 2,000 mg 1200 mL/h r Given 04/23/2023 9:36 AM CDT 2,000 mg 1200 mL/hr Given 04/22/2023 9:16 AM CDT 2,000 mg 1200 mL/hr DAPTOmycin (CUBICIN) 50 mg/mL sodium chloride 0.9% 700 mg 700 mg, intravenous, at 420 mL/hr, Administer over 2 Minutes, Every 24 hours, First dose (after last modification) on Fri04/16/23 at 1500, Do not administer or mix with dextrose-containing solutions, Indications: Bone/Joint InfectionIndications:Bone/Joint Infection Given 04/24/2023 3:19 PM CDT 700 mg 420 mL/hr Given 04/23/2023 4:28 PM CDT 700 mg 420 mL/hr Given 04/22/2023 5:43 PM CDT 700 mg 420 mL/hr DAPTOmycin (CUBICIN) 50 mg/mL sodium chloride 0.9% 750 mg 750 mg (rounded from 760 mg = 8 mg/kg ? 95 kg Adjusted weight), intravenous, at 450 mL/hr, Administer over 2 Minutes, Once, On Fri04/15/23 at 2100, For 1 dose, Do not administer or mix with dextrose-containing solutions, Indications: Bone/Joint InfectionIndications:Bone/ Joint Infection Given 04/15/2023 9:43 PM CDT 750 mg 450 mL/hr dextrose (D10W) 10% bolus 250 mL 250 mL, intravenous, at 1,000 mL/hr, Administer over 15 Minutes, Every 15 min PRN, blood glucose less than 70 mg/dL and UNABLE to swallow/take PO glucose/juice., Starting on Fri04/15/23 at 1849, After treatment for hypoglycemia, recheck BG followed by treatment every 15 minutes until the BG is greater than 100 mg/dL. Then check BG 1 hour post treatment. If BG is less than 100 mg/dL, repeat Q15 minute BG checks and treatment. Call MD for each episode of hypoglycemia., Indications: hypoglycemic disorderIndications:hypogl ycemic disorder dextrose (GLUTOSE) 40 % gel 15 g 15 g, oral, Every 15 min PRN, low blood sugar, blood glucose less than 70 mg/dL, Starting on Fri04/15/23 at 1849, If patient is alert and able to eat/drink, give 15 gm glucose or one juice (4 fluid ounces) NOT ORANGE JUICE. After treatment for hypoglycemia, recheck BG followed by treatment every 15 minutes until the BG is greater than 100 mg/dL. Then check BG 1 hour post-treatment. If BG is less than 100 mg/dL, repeat Q15 minute BG checks and treatment. Call MD for each episode of hypoglycemia. [employer] DEVELOPER STATES GLUTOSE-15 CONTAINS GLUCOSE 40% W/W (50% W/V), Indications: hypoglycemic disorderIndications:hypogl ycemic disorder Given 04/22/2023 11:55 AM CDT 15 g doxycycline (VIBRAMYCIN) 100 mg in sodium chloride 0.9% 100 mL IVPB 100 mg, intravenous, at 100 mL/hr, Administer over 60 Minutes, 2 times daily, First dose on Fri04/25/23 at 1500, Mini-Bag Plus bag, Indications: Skin/Soft Tissue Infection, +[facility]SA R leg [facility]Soft [facility] Infection,+MRSA R leg 03/03/23 @[facility] New Bag 04/25/2023 5:27 PM CDT 100 mg 100 mL/hr ergocalciferol (VITAMIN D) capsule 50,000 Units 50,000 Units, oral, Weekly, First dose on Fri04/17/23 at 1115, Do not crush, break, or open. Given 04/17/2023 2:37 PM CDT 50,000 Units ferric gluconate (FERRLECIT) 125 mg of elemental iron in sodium chloride 0.9% 100 mL IVPB 125 mg of elemental iron, intravenous, at 110 mL/hr, Administer over 60 Minutes, Daily, First dose on Fri04/16/23 at 1915, For 3 days, Room temperature only New Bag 04/18/2023 9:11 AM CDT 125 mg of elemental iron 110 mL/hr New Bag 04/17/2023 11:30 AM CDT 125 mg of elemental iro n 110 mL/hr New Bag 04/16/2023 9:12 PM CDT 125 mg of elemental iron 110 mL/hr folic acid (FOLVITE) tablet 1 mg 1 mg, oral, Daily, First dose on Fri04/16/23 at 1900 Given 04/25/2023 10:10 AM CDT 1 mg Given 04/22/2023 9:16 AM CDT 1 mg Given 04/21/2023 9:08 AM CDT 1 mg furosemide (LASIX) 10 mg/mL injection 60 mg 60 mg, intravenous, Once, On Fri04/15/23 at 1442, For 1 dose, For IV push: administer doses < 160 mg at a rate of 20 -40 mg/min. Doses >/= 160 mg should be administered no faster than 4 mg/min. Room temperature only Given 04/15/2023 2:5 5 PM CDT 60 mg furosemide (LASIX) 10 mg/mL injection 80 mg 80 mg, intravenous, 2 times daily (for diuretics), First dose on Fri04/15/23 at 1626, For IV push: administer doses < 160 mg at a rate of 20 -40 mg/min. Doses >/= 160 mg should be administered no faster than 4 mg/min. Room temperature only Given 04/21/2023 3:57 PM CDT 80 mg Given 04/21/2023 9:08 AM CDT 80 mg Given 04/20/2023 4:07 PM CDT 80 mg furosemide (LASIX) 10 mg/mL injection 80 mg 80 mg, intravenous, Every 8 hours scheduled, First dose (after last modification) on Fri04/22/23 at 0845, For IV push: administer doses < 160 mg at a rate of 20 -40 mg/min. Doses >/= 160 mg should be administered no faster than 4 mg/min. Room temperature only Given 04/24/2023 5:56 AM CDT 80 mg Given 04/23/2023 6:02 PM CDT 80 mg Given 04/23/2023 1:00 PM CDT 80 mg heparin 5,000 unit/mL injection 7,500 Units 7,500 Units, subcutaneous, Every 8 hours scheduled, First dose on Fri04/15/23 at 2200, Indications: Deep Vein Thrombosis Prevention, On hold since Fri04/22/2023 at 1734 until manually unheldIndications:Deep Vein Thrombosis Prevention Given 04/22/2023 3:20 PM CDT 7,500 Units Left Lower Abdomen Given 04/22/2023 5:24 AM CDT 7,500 Units L eft Upper Arm Given 04/21/2023 9:38 PM CDT 7,500 Units L eft Lower Abdomen hydrALAZINE (APRESOLINE) injection 20 mg 20 mg, intravenous, Administer over 2 Minutes, Every 6 hours PRN, high blood pressure, SBP >150, Starting on 04/26/23 at 0112 Given 04/26/2023 1:19 AM CDT 20 mg HYDROmorphone (DILAUDID) injection 0.5 mg 0.5 mg, intravenous, Administer over 2 Minutes, Every 4 hours PRN, 2nd line for pain, Starting on Fri04/18/23 at 1735 Given 04/25/2023 8:24 PM CDT 0.5 mg Given 04/18/2023 6:18 PM CDT 0.5 mg insulin glargine (LANTUS, SEMGLEE) 100 unit/mL injection 22 Units 22 Units (rounded from 21.75 Units = 0.15 Units/kg ? 145 kg), subcutaneous, Nightly, First dose on Fri04/15/23 at 2100, Do not hold if NPO. Do not mix with other insulins, Indications: Diabetes MellitusIndications:Diabetes Mellitus Given 04/19/2023 9:51 PM CDT 22 Units Left Upper Arm Given 04/18/2023 11:21 PM CDT 22 Units L eft Lower Abdomen Given 04/17/2023 9:28 PM CDT 22 Units Le ft Upper Arm insulin lispro (HumaLOG, ADMELOG) 100 unit/mL injection 0-4 Units 0-4 Units, subcutaneous, Nightly, First dose on Fri04/15/23 at 2100, Blood glucose mg/dL: 199 or less: No insulin 200-249: add 1 unit 250-299: add 2 units 300-349: add 3 units and notify physician for adjustment of insulin orders. 350-399: add 4 units and notify physician for adjustment of insulin orders. Over 400: Notify physician for adjustment of insulin orders. Do NOT hold for NPO Status, Indications: Diabetes MellitusIndications:Diabetes Mellitus Given 04/25/2023 8:26 PM CDT 1 Units Left Upper Abdomen Given 04/24/2023 9:21 PM CDT 1 Units Le ft Upper Abdomen insulin lispro (HumaLOG, ADMELOG) 100 unit/mL injection 0-5 Units 0-5 Units, subcutaneous, 3 times daily with meals, First dose on Fri04/15/23 at 1930, Blood glucose mg/dL: 149 or less: No insulin 150-199: add 1 unit 200-249: add 2 units 250-299: add 3 units 300-349: add 4 units and notify physician for adjustment of insulin orders. 350-399: add 5 units and notify physician for adjustment of insulin orders. Over 400: Notify physician for adjustment of insulin orders. Do NOT hold for NPO Status, Indications: Diabetes MellitusIndications:Diabetes Mellitus Given 04/25/2023 5:54 PM CDT 1 Units Left Lower Abdomen Given 04/25/2023 12:06 PM CDT 1 Units L eft Lower Abdomen Given 04/24/2023 5:13 PM CDT 1 Units Le ft Upper Arm insulin lispro (HumaLOG, ADMELOG) 100 unit/mL injection 7 Units 7 Units (rounded from 7.25 Units = 0.05 Units/kg ? 145 kg), subcutaneous, 3 times daily with meals, First dose on Fri04/15/23 at 1930, If BG greater than or equal to 100 mg/dL, give dose with meals when tray arrives in the room. If BG less than 100 mg/dL or history of poor intake, give after meals. If patient eating less than 50% of meal, call MD for holding or reducing meal insulin dose. Hold prandial insulin if NPO, unable to eat, or if BG less than 70 mg/dL., Indications: Diabetes MellitusIndications:Diabetes Mellitus Given 04/16/2023 6:01 PM CDT 7 Units Left Lower Abdomen Given 04/16/2023 12:40 PM CDT 7 Units R ight Lower Abdomen Given 04/16/2023 8:04 AM CDT 7 Units Le ft Upper Arm ipratropium-albuteroL (DUO-NEB) 0.5-2.5 mg/3 mL nebulizer solution 3 mL 3 mL, nebulization, 4 times daily (respiratory tech), First dose on Fri04/16/23 at 0700, Indications: Chronic Obstructive Pulmonary Disease with BronchospasmsIndications:C hronic Obstructive Pulmonary Disease with Bronchospasms Given 04/16/2023 7:24 AM CDT 3 mL ipratropium-albuteroL (DUO-NEB) 0.5-2.5 mg/3 mL nebulizer solution 3 mL 3 mL, nebulization, Every 4 hours PRN (respiratory tech), wheezing, shortness of breath, Starting on Fri04/17/23 at 0815, Indications: Chronic Obstructive Pulmonary Disease with BronchospasmsIndications:C hronic Obstructive Pulmonary Disease with Bronchospasms Given 04/22/2023 3:05 AM CDT 3 mL Lactated Ringer's (LR) infusion 125 mL/hr, intravenous, Continuous, Starting on Fri04/24/23 at 1115, Phase I, New Bag 04/24/2023 1:11 PM CDT 125 mL/hr 125 mL/hr lidocaine PF (XYLOCAINE) 10 mg/mL (1 %) preservative free injection 10-20 mg 10-20 mg (1-2 mL), subcutaneous, Once, On Fri04/17/23 at 1145, For 1 dose, Administer to insertion site prior to procedure of local anesthesia. Administer volume needed to infiltrate site., Indications: Administration of Local AnesthesiaIndications:Admi nistration of Local Anesthesia Given 04/17/2023 12:28 PM CDT 10 mg Other (Comment) lidocaine PF (XYLOCAINE) 10 mg/mL (1 %) preservative free injection 10-20 mg 10-20 mg (1-2 mL), subcutaneous, Once, On Fri04/22/23 at 0000, For 1 dose, Administer to insertion site prior to procedure of local anesthesia. Administer volume needed to infiltrate site., Indications: Administration of Local AnesthesiaIndications:Admi nistration of Local Anesthesia Given 04/22/2023 10:39 AM CDT 10 mg Other (Comment) losartan (COZAAR) tablet 50 mg 50 mg, oral, Daily, First dose on [place] 04/24/23 at 0945 Given 04/25/2023 10:10 AM CDT 50 mg metroNIDAZOLE (FLAGYL) tablet 500 mg 500 mg, oral, 3 times daily, First dose on Fri04/16/23 at 1600, Indications: Skin/Soft Tissue InfectionIndications:Skin/ Soft Tissue Infection Given 04/25/2023 8:26 PM CDT 500 mg Given 04/25/2023 5:53 PM CDT 500 mg Given 04/25/2023 10:10 AM CDT 500 mg miconazole 2 % powder topical, 2 times daily, First dose on Fri04/22/23 at 1200, Apply to affected area: back, abdomen, perineum Given 04/25/2023 8:27 PM CDT Given 04/25/2023 10:11 AM CDT Given 04/24/2023 9:21 PM CDT ondansetron (ZOFRAN) injection 4 mg 4 mg, intravenous, Administer over 2 Minutes, Every 6 hours PRN, nausea, vomiting, if not tolerating PO, Starting on Fri04/15/23 at 1849, Indications: Nausea and VomitingIndications:Nausea and Vomiting Given 04/23/2023 6:27 PM CDT 4 mg Given 04/22/2023 7:30 AM CDT 4 mg ondansetron ODT (ZOFRAN-ODT) disintegrating tablet 4 mg 4 mg, oral, Every 6 hours PRN, nausea, vomiting, Starting on Fri04/15/23 at 1849, Indications: Nausea and VomitingIndications:Nausea and Vomiting perflutren lipid (DEFINITY) 1.5 mL in sodium chloride 0.9% 10 mL syringe 1-10 mL, intravenous, Once in imaging, contrast, Starting on Fri04/16/23 at 1133, For 1 dose, Intra-Procedure (CV) Contrast Given 04/16/2023 11:34 AM CDT 2 mL sodium chloride (OCEAN) 0.65 % nasal spray 1 spray 1 spray, each nostril, Every 2 hours PRN, congestion, Starting on Fri04/16/23 at 0611 sodium chloride 0.9% bolus 1,000 mL 1,000 mL, intravenous, at 1,000 mL/hr, Administer over 1 Hours, Once, On Fri04/15/23 at 1339, For 1 dose New Bag 04/15/2023 1:50 PM CDT 1,000 mL 1000 mL/hr sodium chloride 0.9% flush 0.5-20 mL 0.5-20 mL, intra-catheter, Every 8 hours scheduled, First dose on Fri04/15/23 at 2200, Flush volume based on line type and size. Given 04/25/2023 8:26 PM CDT 10 mL Given 04/25/2023 4:28 AM CDT 10 mL Given 04/24/2023 9:22 PM CDT 10 mL sodium chloride 0.9% flush 0.5-20 mL 0.5-20 mL, intra-catheter, As needed, line care, Starting on Fri04/15/23 at 1849, Flush volume based on line type and size. Flush before and after each use. sodium chloride 0.9% flush 5-10 mL 5-10 mL, intra-catheter, Every 12 hours scheduled, First dose on Fri04/17/23 at 1145, Flush volume based on line type, size, and protocol. Given 04/22/2023 9:17 AM CDT 10 mL Given 04/21/2023 9:38 PM CDT 10 mL Given 04/21/2023 9:20 AM CDT 10 mL sodium chloride 0.9% flush 5-10 mL 5-10 mL, intra-catheter, Every 12 hours scheduled, First dose on Fri04/22/23 at 0900, Flush volume based on line type, size, and protocol. Given 04/22/2023 9:17 AM CDT 10 mL sodium chloride 0.9% flush 5-20 mL 5-20 mL, intra-catheter, As needed, line care, with each use, Starting on [place] 04/17/23 at 1059, Flush volume based on line type, size, and protocol. sodium chloride 0.9% flush 5-20 mL 5-20 mL, intra-catheter, As needed, line care, with each use, Starting on 04/22/23 at 0000, Flush volume based on line type, size, and protocol. sodium chloride 0.9% infusion 30 mL/hr, intravenous, Continuous, Starting on [place] 04/24/23 at 1015, Pre-Procedure (GI) Restarted 04/24/2023 9:57 AM CDT New Bag 04/24/2023 9:46 AM CDT 30 mL/hr 30 mL/hr spironolactone (ALDACTONE) tablet 25 mg 25 mg, oral, 2 times daily (for diuretics), First dose on 04/19/23 at 1600 Given 04/21/2023 3:57 PM CDT 25 mg Given 04/21/2023 9:08 AM CDT 25 mg Given 04/20/2023 4:07 PM CDT 25 mg spironolactone (ALDACTONE) tablet 50 mg 50 mg, oral, 2 times daily (for diuretics), First dose (after last modification) on e 04/22/23 at 0915 Given 04/25/2023 5:53 PM CDT 50 mg Given 04/25/2023 10:10 AM CDT 50 mg Given 04/24/2023 3:18 PM CDT 50 mg tc-99m macroaggregated albumin (MAA) injection 4 millicurie 4 millicurie, intravenous, Once in imaging, radiopharmaceutical, Starting on Tu04/15/23 at 1607, For 1 dose, Indications: Diagnostic RadiographyIndications:Diagnostic Radiography Given 04/15/2023 4:07 PM CDT 4 millicuries tc-99m macroaggregated albumin (MAA) injection 5 millicurie 5 millicurie, intravenous, Once in imaging, radiopharmaceutical, Starting on Fri04/20/23 at 1247, For 1 dose, Indications: Diagnostic RadiographyIndications:Diagnostic Radiography Given 04/20/2023 12:47 PM CDT 5 millicuries Tc-99m ULTRATAG - labeled RBCs injection 22 millicurie 22 millicurie, intravenous, Once in imaging, radiopharmaceutical, Starting on Fri04/23/23 at 0755, For 1 dose Given 04/23/2023 7:55 AM CDT 22 millicuries thiamine (VITAMIN B-1) tablet 50 mg 50 mg, oral, Daily, First dose on Fri04/16/23 at 1900 Given 04/25/2023 10:10 AM CDT 50 mg Given 04/22/2023 9:16 AM CDT 50 mg Given 04/21/2023 9:08 AM CDT 50 mg vancomycin 2,000 mg/520 mL in sodium chloride 0.9% (premix) 2,000 mg 2,000 mg, intravenous, Administer over 120 Minutes, Once, On Fri04/15/23 at 1442, For 1 dose, Indications: Skin/Soft Tissue InfectionIndications:Skin/Soft Tissue Infection New Bag 04/15/2023 4:23 PM CDT 2,000 mg documented in this encounter Historical Medications * This list may reflect changes made after this encounter. dulaglutide (TRULICITY) 0.75 mg/0.5 mL pen injector Inject 0.5 mL (0.75 mg total) under the skin every 7 days amLODIPine (NORVASC) 10 mg tablet Take 1 tablet (10 mg total) by mouth daily carvediloL (COREG) 12.5 mg tablet Take 1 tablet (12.5 mg total) by mouth 2 (two) times a day with meals losartan (COZAAR) 25 mg tablet Take 1 tablet (25 mg total) by mouth daily furosemide (LASIX) 40 mg tablet Take 1 tablet (40 mg total) by mouth daily potassium chloride ER 10 mEq CR tablet Take 2 tablet/capsul e (20 mEq total) by mouth daily added in this encounter Active and Recently Administered Medications Times are shown in CDT. Scheduled Medication Order 04/24/2023 04/25/2023 04/26/2023 bumetanide (BUMEX) tablet 2 mg 2 mg, oral, 2 times daily (for diuretics), First dose on Fri04/24/23 at 0945 0916 (MAR Hold - Provider: Automatic Transfer Provider - Reason: Patient not available)0945 (Dose Auto Held - Provider: Automatic Transfer Provider)1102 (MAR Unhold - Provider: Automatic Transfer Provider)1518 (Given - Provider: Alyson Maradiaga RN) 1010 (Given - Provider: Johanna Narayanan RN)1753 (Given - Provider: Johanna Narayanan RN) buPROPion (WELLBUTRIN) tablet 50 mg 50 mg, oral, 2 times daily, First dose on Fri04/21/23 at 2300, Indications: major depressive disorder 0900 (Not Given - Provider: Alyson Maradiaga RN - Reason: Patient not available)0916 (JAN Hold - Provider: Automatic Transfer Provider - Reason: Patient not available)1102 (JAN Unhold - Provider: Automatic Transfer Provider)2121 (Not Given - Provider: Rio Cardoza RN - Reason: Patient/family refused) 1010 (Given - Provider: Johanna Narayanan RN)2025 (Not Given - Provider: Orquidea Hinds RN - Reason: Patient/family refused) cefTRIAXone (ROCEPHIN) 2,000 mg/20 mL in sterile water (premix) 2,000 mg 2,000 mg, intravenous, at 1,200 mL/hr, Administer over 1 Minutes, Every 24 hours scheduled, First dose on Fri04/16/23 at 1400, Indications: Other (complete free text reason below), Osteomyelitis 0900 (Due)0916 (JAN Hold - Provider: Automatic Transfer Provider - Reason: Patient not available)1102 ([facility] Unhold - Provider: Automatic Transfer Provider) 1009 (Given - Provider: Johanna Narayanan RN) DAPTOmycin (CUBICIN) 50 mg/mL sodium chloride 0.9% 700 mg (CANCELED) 700 mg, intravenous, at 420 mL/hr, Administer over 2 Minutes, Every 24 hours, First dose (after last modification) on Fri04/16/23 at 1500, Do not administer or mix with dextrose-containing solutions, Indications: Bone/Joint Infection 0916 (JAN Hold - Provider: Automatic Transfer Provider - Reason: Patient not available)1102 ([facility] Unhold - Provider: Automatic Transfer Provider)1519 (Given - Provider: Alyson Maradiaga, JIMMIE) doxycycline (VIBRAMYCIN) 100 mg in sodium chloride 0.9% 100 mL IVPB 100 mg, intravenous, at 100 mL/hr, Administer over 60 Minutes, 2 times daily, First dose on Fri04/25/23 at 1500, Mini-Bag Plus bag, Indications: Skin/Soft Tissue Infection, +MRSA R leg 03/03/23 @[facility] 1727 (New Bag - Provider: Johanna Narayanan, JIMMIE) ergocalciferol (VITAMIN D) capsule 50,000 Units 50,000 Units, oral, Weekly, First dose on Fri04/17/23 at 1115, Do not crush, break, or open. 0900 (Not Given - Provider: Alyson Maradiaga RN - Reason: Patient not available)0916 (JAN Hold - Provider: Automatic Transfer Provider - Reason: Patient not available)1102 (JAN Unhold - Provider: Automatic Transfer Provider) folic acid (FOLVITE) tablet 1 mg 1 mg, oral, Daily, First dose on Fri04/16/23 at 1900 0900 (Not Given - Provider: Alyson Maradiaga RN - Reason: Patient not available)0916 (JAN Hold - Provider: Automatic Transfer Provider - Reason: Patient not available)1102 (JAN Unhold - Provider: Automatic Transfer Provider) 1010 (Given - Provider: Johanna Narayanan, JIMMIE) furosemide (LASIX) 10 mg/mL injection 80 mg (CANCELED) 80 mg, intravenous, Every 8 hours scheduled, First dose (after last modification) on Fri04/22/23 at 0845, For IV push: administer doses < 160 mg at a rate of 20 -40 mg/min. Doses >/= 160 mg should be administered no faster than 4 mg/min. Room temperature only 0556 (Given - Provider: Lesly Schneider RN - Comment: 164/92) heparin 5,000 unit/mL injection 7,500 Units 7,500 Units, subcutaneous, Every 8 hours scheduled, First dose on Fri04/15/23 at 2200, Indications: Deep Vein Thrombosis Prevention, On hold since Fri04/22/2023 at 1734 until manually unheld 0600 (Dose Auto Held - Provider: Willie Noyola MD)1400 (Dose Auto Held - Provider: Willie Noyola MD)2200 (Dose Auto Held - Provider: Willie Noyola MD) 0600 (Dose Auto Held - Provider: Willie Noyola MD)1400 (Dose Auto Held - Provider: Willie Noyola MD)2200 (Dose Auto Held - Provider: Willie Noyola MD) 0821 (Unheld by Provider - Provider: Automatic Discharge Provider) insulin lispro (HumaLOG, ADMELOG) 100 unit/mL injection 0-4 Units 0-4 Units, subcutaneous, Nightly, First dose on Fri04/15/23 at 2100, Blood glucose mg/dL: 199 or less: No insulin 200-249: add 1 unit 250-299: add 2 units 300-349: add 3 units and notify physician for adjustment of insulin orders. 350-399: add 4 units and notify physician for adjustment of insulin orders. Over 400: Notify physician for adjustment of insulin orders. Do NOT hold for NPO Status, Indications: Diabetes Mellitus 0916 (JAN Hold - Provider: Automatic Transfer Provider - Reason: Patient not available)110 (JAN Unhold - Provider: Automatic Transfer Provider)2120 (Given - Provider: Rio Cardoza RN) 2025 (Given - Provider: Orquidea Hinds RN) insulin lispro (HumaLOG, ADMELOG) 100 unit/mL injection 0-5 Units 0-5 Units, subcutaneous, 3 times daily with meals, First dose on Fri04/15/23 at 1930, Blood glucose mg/dL: 149 or less: No insulin 150-199: add 1 unit 200-249: add 2 units 250-299: add 3 units 300-349: add 4 units and notify physician for adjustment of insulin orders. 350-399: add 5 units and notify physician for adjustment of insulin orders. Over 400: Notify physician for adjustment of insulin orders. Do NOT hold for NPO Status, Indications: Diabetes Mellitus 0836 (Not Given - Provider: Alyson Maradiaga RN - Reason: Order parameters not met)0916 (JAN Hold - Provider: Automatic Transfer Provider - Reason: Patient not available)110 (JAN Unhold - Provider: Automatic Transfer Provider)1149 (Not Given - Provider: Alyson Maradiaga RN - Reason: Order parameters not met)1713 (Given - Provider: Alyson Maradiaga RN) 1010 (Not Given - Provider: Johanna Narayanan RN - Reason: Other - Comment: no breakfast)1206 (Given - Provider: Johanna Narayanan, JIMMIE)1754 (Given - Provider: Johanna Narayanan, JIMMIE) losartan (COZAAR) tablet 50 mg 50 mg, oral, Daily, First dose on Fri04/24/23 at 0945 0916 (JAN Hold - Provider: Automatic Transfer Provider - Reason: Patient not available)0945 (Dose Auto Held - Provider: Automatic Transfer Provider)1102 (JAN Unhold - Provider: Automatic Transfer Provider) 1010 (Given - Provider: Johanna Narayanan, JIMMIE) metroNIDAZOLE (FLAGYL) tablet 500 mg 500 mg, oral, 3 times daily, First dose on Fri04/16/23 at 1600, Indications: Skin/Soft Tissue Infection 0900 (Not Given - Provider: Alyson Maradiaga RN - Reason: Patient not available)0916 (JAN Hold - Provider: Automatic Transfer Provider - Reason: Patient not available)110 (JAN Unhold - Provider: Automatic Transfer Provider)1518 (Given - Provider: Alyson Maradiaga, JIMMIE)2121 (Not Given - Provider: Rio Cardoza RN - Reason: Patient/family refused) 101 (Given - Provider: Johanna Narayanan RN)175 (Given - Provider: Johanna Narayanan RN)2025 (Given - Provider: Orquidea Hinds, JIMMIE) miconazole 2 % powder topical, 2 times daily, First dose on Fri04/22/23 at 1200, Apply to affected area: back, abdomen, perineum 0900 (Not Given - Provider: Alyson Maradiaga RN - Reason: Patient not available)0916 (MAR Hold - Provider: Automatic Transfer Provider - Reason: Patient not available)110 (JAN Unhold - Provider: Automatic Transfer Provider)2120 (Given - Provider: Rio Cardoza RN) 101 (Given - Provider: Johanna Narayanan RN)2026 (Given - Provider: Orquidea Hinds, JIMMIE) sodium chloride 0.9% flush 0.5-20 mL(Linked Group 1) 0.5-20 mL, intra-catheter, Every 8 hours scheduled, First dose on Fri04/15/23 at 2200, Flush volume based on line type and size. 0556 (Given - Provider: Lesly Schneider RN)0916 (JAN Hold - Provider: Automatic Transfer Provider - Reason: Patient not available)110 (JAN Unhold - Provider: Automatic Transfer Provider)131 (Not Given - Provider: Alyson Maradiaga RN - Reason: IV Infusing)2121 (Given - Provider: Rio Cardoza, JIMMIE) 0428 (Given - Provider: Rio Cardoza, JIMMIE)1352 (Not Given - Provider: Johanna Narayanan RN - Reason: Patient/family refused)2025 (Given - Provider: Orquidea Hinds, JIMMIE) spironolactone (ALDACTONE) tablet 50 mg 50 mg, oral, 2 times daily (for diuretics), First dose (after last modification) on Fri04/22/23 at 0915 0900 (Not Given - Provider: Alyson Maradiaga RN - Reason: Patient not available)0916 (JAN Hold - Provider: Automatic Transfer Provider - Reason: Patient not available)1102 (JAN Unhold - Provider: Automatic Transfer Provider)1518 (Given - Provider: Alyson Maradiaga RN) 1010 (Given - Provider: Johanna Narayanan RN)1753 (Given - Provider: Johanna Naraynaan, JIMMIE) thiamine (VITAMIN B-1) tablet 50 mg 50 mg, oral, Daily, First dose on Fri04/16/23 at 1900 0916 (JAN Hold - Provider: Automatic Transfer Provider - Reason: Patient not available)1102 (JAN Unhold - Provider: Automatic Transfer Provider)1406 (Not Given - Provider: Alyson Maradiaga RN - Reason: Patient not available) 1010 (Given - Provider: Johanna Narayanan RN) Continuous Medication Order 04/24/2023 04/25/2023 04/26/2023 Lactated Ringer's (LR) infusion 30 mL/hr, intravenous, Continuous, Starting on [place] 04/24/23 at 1030, Pre-Op, 1407 (Canceled Entry - Provider: Alyson Maradiaga RN) Lactated Ringer's (LR) infusion 125 mL/hr, intravenous, Continuous, Starting on [place] 04/24/23 at 1115, Phase I, 1311 (New Bag - Provider: Alyson Maradiaga RN)1355 (Canceled Entry - Provider: Alyson Maradiaga RN) 0821 (Due: Stopped) sodium chloride 0.9% infusion 30 mL/hr, intravenous, Continuous, Starting on [place] 04/24/23 at 1015, Pre-Procedure (GI) 0946 (New Bag - Provider: Milagro Simmons RN)0956 (Paused - Provider: Trisha Jackson CRNA - Comment: Switch to gravity)0957 (Restarted - Provider: Trisha Jackson CRNA)1015 (Due)1016 (Anesthesia Volume Adjustment - Provider: Trisha Jackson CRNA) 0821 (Due: Stopped) PRN Medication Order 04/24/2023 04/25/2023 04/26/2023 acetaminophen (TYLENOL) tablet 650 mg 650 mg, oral, Every 4 hours PRN, 1st line for pain, fever, fever greater than 38.3 C, Starting on Fri04/15/23 at 1849, Indications: Fever, Pain 0916 ([facility] Hold - Provider: Automatic Transfer Provider - Reason: Patient not available)1102 ([facility] Unhold - Provider: Automatic Transfer Provider) Carrier Fluids for Secondary Infusion - 0.9% Sodium Chloride(Linked Group 1) 30 mL, intravenous, As needed, For priming tubing and/or flushing, Starting on Fri04/15/23 at 1849, 0-250 ml/hr to flush line after IV infusions when no maintenance IV ordered. Infuse 30mL at the same rate as the secondary infusion. Run as primary IV, not intended for KVO. 0916 ([facility] Hold - Provider: Automatic Transfer Provider - Reason: Patient not available)1102 ([facility] Unhold - Provider: Automatic Transfer Provider) 0910 (Not Given - Provider: Johanna Narayanan RN - Reason: Other)1727 (Given - Provider: Johanna Narayanan, JIMMIE) Carrier Fluids for Secondary Infusion - 0.9% Sodium Chloride 30 mL, intravenous, As needed, For priming tubing and/or flushing, Starting on Fri04/21/23 at 2012, 0-250ml/hr to flush line after IV infusions when no maintenance IV ordered. Infuse 30mL at the same rate as the secondary infusion. Run as primary IV, not intended for KVO 0916 ([facility] Hold - Provider: Automatic Transfer Provider - Reason: Patient not available)1102 ([facility] Unhold - Provider: Automatic Transfer Provider) dextrose (D10W) 10% bolus 250 mL(Linked Group 2) 250 mL, intravenous, at 1,000 mL/hr, Administer over 15 Minutes, Every 15 min PRN, blood glucose less than 70 mg/dL and UNABLE to swallow/take PO glucose/juice., Starting on Fri04/15/23 at 1849, After treatment for hypoglycemia, recheck BG followed by treatment every 15 minutes until the BG is greater than 100 mg/dL. Then check BG 1 hour post treatment. If BG is less than 100 mg/dL, repeat Q15 minute BG checks and treatment. Call MD for each episode of hypoglycemia., Indications: hypoglycemic disorder 915 ([facility] Hold - Provider: Automatic Transfer Provider - Reason: Patient not available)1102 ([facility] Unhold - Provider: Automatic Transfer Provider) dextrose (GLUTOSE) 40 % gel 15 g(Linked Group 2) 15 g, oral, Every 15 min PRN, low blood sugar, blood glucose less than 70 mg/dL, Starting on Fri04/15/23 at 1849, If patient is alert and able to eat/drink, give 15 gm glucose or one juice (4 fluid ounces) NOT ORANGE JUICE. After treatment for hypoglycemia, recheck BG followed by treatment every 15 minutes until the BG is greater than 100 mg/dL. Then check BG 1 hour post-treatment. If BG is less than 100 mg/dL, repeat Q15 minute BG checks and treatment. Call MD for each episode of hypoglycemia. WEBSPH[employer] DEVELOPER STATES GLUTOSE-15 CONTAINS GLUCOSE 40% W/W (50% W/V), Indications: hypoglycemic disorder 915 ([facility] Hold - Provider: Automatic Transfer Provider - Reason: Patient not available)1102 ([facility] Unhold - Provider: Automatic Transfer Provider) glucagon injection 1 mg 1 mg, intramuscular, Every 30 min PRN, low blood sugar, blood glucose less than 70 mg/dL AND no IV access AND unable to take PO glucose/juice., Starting on Fri04/15/23 at 1849, After Glucagon is administered, position patient on side if possible to avoid aspiration. Obtain IV access. Follow glucagon treatment with glucose treatment or IV dextrose. After treatment for hypoglycemia, recheck BG followed by treatment every 15 minutes until the BG is greater than 100 mg/dL. Then check BG 1 hour post treatment. If BG is less than 100 mg/dL, repeat Q15 minute BG checks and treatment. Call MD for each episode of hypoglycemia. Reconstitute 1 mg vial with 1 mL SWFI. Use immediately following reconstitution. 0916 ([facility] Hold - Provider: Automatic Transfer Provider - Reason: Patient not available)1102 ([facility] Unhold - Provider: Automatic Transfer Provider) hydrALAZINE (APRESOLINE) injection 20 mg 20 mg, intravenous, Administer over 2 Minutes, Every 6 hours PRN, high blood pressure, SBP >150, Starting on 04/26/23 at 0112 0119 (Given - Provider: Orquidea Hinds, RN) HYDROmorphone (DILAUDID) injection 0.5 mg 0.5 mg, intravenous, Administer over 2 Minutes, Every 4 hours PRN, 2nd line for pain, Starting on Fri04/18/23 at 1735 0916 ([facility] Hold - Provider: Automatic Transfer Provider - Reason: Patient not available)110 ([facility] Unhold - Provider: Automatic Transfer Provider) 2023 (Given - Provider: Orquidea Hinds, JIMMIE) ipratropium-albuteroL (DUO-NEB) 0.5-2.5 mg/3 mL nebulizer solution 3 mL 3 mL, nebulization, Every 4 hours PRN (respiratory tech), wheezing, shortness of breath, Starting on [place] 04/17/23 at 0815, Indications: Chronic Obstructive Pulmonary Disease with Bronchospasms 0916 ([facility] Hold - Provider: Automatic Transfer Provider - Reason: Patient not available)110 ([facility] Unhold - Provider: Automatic Transfer Provider) ondansetron (ZOFRAN) injection 4 mg(Linked Group 3) 4 mg, intravenous, Administer over 2 Minutes, Every 6 hours PRN, nausea, vomiting, if not tolerating PO, Starting on Fri04/15/23 at 1849, Indications: Nausea and Vomiting 0916 ([facility] Hold - Provider: Automatic Transfer Provider - Reason: Patient not available)1102 ([facility] Unhold - Provider: Automatic Transfer Provider) ondansetron ODT (ZOFRAN-ODT) disintegrating tablet 4 mg(Linked Group 3) 4 mg, oral, Every 6 hours PRN, nausea, vomiting, Starting on Fri04/15/23 at 1849, Indications: Nausea and Vomiting 0916 ([facility] Hold - Provider: Automatic Transfer Provider - Reason: Patient not available)1102 ([facility] Unhold - Provider: Automatic Transfer Provider) sodium chloride (OCEAN) 0.65 % nasal spray 1 spray 1 spray, each nostril, Every 2 hours PRN, congestion, Starting on Fri04/16/23 at 0611 0916 ([facility] Hold - Provider: Automatic Transfer Provider - Reason: Patient not available)1102 ([facility] Unhold - Provider: Automatic Transfer Provider) sodium chloride 0.9% flush 0.5-20 mL(Linked Group 1) 0.5-20 mL, intra-catheter, As needed, line care, Starting on Fri04/15/23 at 1849, Flush volume based on line type and size. Flush before and after each use. 0916 ([facility] Hold - Provider: Automatic Transfer Provider - Reason: Patient not available)1102 ([facility] Unhold - Provider: Automatic Transfer Provider) sodium chloride 0.9% flush 5-20 mL 5-20 mL, intra-catheter, As needed, line care, with each use, Starting on Fri04/17/23 at 1059, Flush volume based on line type, size, and protocol. 0916 ([facility] Hold - Provider: Automatic Transfer Provider - Reason: Patient not available)1102 ([facility] Unhold - Provider: Automatic Transfer Provider) sodium chloride 0.9% flush 5-20 mL 5-20 mL, intra-catheter, As needed, line care, with each use, Starting on Fri04/22/23 at 0000, Flush volume based on line type, size, and protocol. 0916 ([facility] Hold - Provider: Automatic Transfer Provider - Reason: Patient not available)1102 ([facility] Unhold - Provider: Automatic Transfer Provider) Linked Groups Order Group 1: Saline lock IV (CANCELED) Routine, Once (Routine), On Fri04/15/23 at 1850, For 1 occurrence And sodium chloride 0.9% flush 0.5-20 mLJump to med 0.5-20 mL, intra-catheter, Every 8 hours scheduled, First dose on Fri04/15/23 at 2200, Flush volume based on line type and size. And sodium chloride 0.9% flush 0.5-20 mLJump to med 0.5-20 mL, intra-catheter, As needed, line care, Starting on Fri04/15/23 at 1849, Flush volume based on line type and size. Flush before and after each use. And Carrier Fluids for Secondary Infusion - 0.9% Sodium ChlorideJump to med 30 mL, intravenous, As needed, For priming tubing and/or flushing, Starting on Fri04/15/23 at 1848, 0-250 ml/hr to flush line after IV infusions when no maintenance IV ordered. Infuse 30mL at the same rate as the secondary infusion. Run as primary IV, not intended for KVO. Group 2: dextrose (GLUTOSE) 40 % gel 15 gJump to med 15 g, oral, Every 15 min PRN, low blood sugar, blood glucose less than 70 mg/dL, Starting on Fri04/15/23 at 1848, If patient is alert and able to eat/drink, give 15 gm glucose or one juice (4 fluid ounces) NOT ORANGE JUICE. After treatment for hypoglycemia, recheck BG followed by treatment every 15 minutes until the BG is greater than 100 mg/dL. Then check BG 1 hour post-treatment. If BG is less than 100 mg/dL, repeat Q15 minute BG checks and treatment. Call MD for each episode of hypoglycemia. WE[employer] DEVELOPER STATES GLUTOSE-15 CONTAINS GLUCOSE 40% W/W (50% W/V), Indications: hypoglycemic disorder Or dextrose (D10W) 10% bolus 250 mLJump to med 250 mL, intravenous, at 1,000 mL/hr, Administer over 15 Minutes, Every 15 min PRN, blood glucose less than 70 mg/dL and UNABLE to swallow/take PO glucose/juice., Starting on Fri04/15/23 at 1848, After treatment for hypoglycemia, recheck BG followed by treatment every 15 minutes until the BG is greater than 100 mg/dL. Then check BG 1 hour post treatment. If BG is less than 100 mg/dL, repeat Q15 minute BG checks and treatment. Call MD for each episode of hypoglycemia., Indications: hypoglycemic disorder Group 3: ondansetron ODT (ZOFRAN-ODT) disintegrating tablet 4 mgJump to med 4 mg, oral, Every 6 hours PRN, nausea, vomiting, Starting on Fri04/15/23 at 1848, Indications: Nausea and Vomiting Or ondansetron (ZOFRAN) injection 4 mgJump to med 4 mg, intravenous, Administer over 2 Minutes, Every 6 hours PRN, nausea, vomiting, if not tolerating PO, Starting on Fri04/15/23 at 1848, Indications: Nausea and Vomiting documented in this encounter Orders Medications Ordered That Jett ht Not Have Been Administered Count Last Ordered Date First Ordered Date diphenhydrAMINE (BENADRYL) 5 0 mg/mL injection 12.5 mg 1 04/24/2023 hydrALAZINE (APRESOLINE) injection 5 mg 1 0 04/24/2023 labetaloL (NORMODYNE,TRANDAT E) injection 5 mg 1 04/24/2023 Lactated Ringer's (LR) infusion 1 meperidine (DEMEROL) preserv ative free injection 25 mg 1 04/24/2023 metoclopramide (REGLAN) 5 mg /mL injection 10 mg 1 04/24/2023 naloxone (NARCAN) 0.4 mg/mL injection 0.04-0.4 mg 1 04/24/2023 ondansetron (ZOFRAN) injection 4 mg 1 04/24 potassium chloride ER (KLOR- CON) extended release tablet 40 mEq 2 04/24/2023 sodium chloride 0.9% flush 0.5-20 mL 3 04/0404/15/2023 insulin glargine (LANTUS, SE MGLEE) 100 unit/mL injection 18 Units 1 04/22/2023 Carrier Fluids for Secondary Infusion - 0.9% Sodium Chloride 1 04/21/2023 sodium chloride 0.9% flush 5-20 mL 2 202204/17/2023 heparin 10 unit/mL flush 20-50 Units 1 04/03 ipratropium-albuteroL (DUO-N EB) 0.5-2.5 mg/3 mL nebulizer solution 3 mL 1 04/16/2023 iron sucrose (VENOFER) 100 m g in sodium chloride 0.9% 100 mL IVPB 1 04/16/2023 sodium chloride (OCEAN) 0.65 % nasal spray 1 spray 1 04/16/2023 acetaminophen (TYLENOL) tablet 650 mg 1 DAPTOmycin (CUBICIN) 50 mg/m L sodium chloride 0.9% 700 mg 1 04/15/2023 dextrose (D10W) 10% bolus 250 mL 1 04/15/20 glucagon injection 1 mg 1 04/15/2023 ondansetron ODT (ZOFRAN-ODT) disintegrating tablet 4 mg 1 04/15/2023 Lab Orders Without Results Count Last Ordered D ate First Ordered Date POCT GLUCOSE DEVICE 30 04/25/2023 04/15/20 Imaging Orders Without Results Count Last Order ed Date First Ordered Date PEP THERAPY/AIRWAY CLEARANCE 2 04/24/2023 Nursing Count Last Ordered Date First Orde red Date NURSING COMMUNICATION 1 04/17/2023 CATHETER CARE 1 04/15/2023 MISCELLANEOUS NURSING CARE ORDER (SPECIFY) 1 04/15/2023 TELEMETRY MONITORING 1 04/15/2023 WEIGH PATIENT 1 04/15/2023 Consult Count Last Ordered Date First Orde red Date IP CONSULT TO NUTRITION SERVICES 1 04/23/20 23 IP CONSULT TO GASTROENTEROLOGY 1 04/22/2023 CONSULT TO BEHAVIORAL HEALTH [facility] 1 023 IP CONSULT TO VASCULAR ACCESS TEAM 5 202204/17/2023 IP CONSULT TO CARDIOLOGY 1 04/15/2023 IP CONSULT TO INFECTIOUS DISEASES 1 023 IP CONSULT TO NEPHROLOGY 1 04/15/2023 IP CONSULT TO PULMONOLOGY 2 04/15/2023 IP CONSULT TO SPIRITUAL CARE 1 04/15/2023 IP CONSULT TO VASCULAR SURGERY 1 04/15/2023 IV Count Last Ordered Date First Orde red Date SALINE LOCK IV 1 04/15/2023 Admission Count Last Ordered Date First Orde red Date ADMIT TO INPATIENT 1 04/15/2023 Transfer Count Last Ordered Date First Orde red Date ED TO FLOOR BED REQUEST 1 04/15/2023 Case Request Count Last Ordered Date First Orde red Date CASE REQUEST GI 1 04/23/2023 documented in this encounter Care Teams Senior Interactive Producer Relationship Specialty Start Date End Date Cherise Patrick PA [address] [place] [id number] PCP - General Physician Bull Driver 02/20/23 documented as of this encounter
--- OUTSIDE RECORDS SUMMARY | 2024-11-17 03:11 | XMS_ITS | Encounter Summary ---
Author Organization [facility] Address [address] [place] [address] Phone Care Team Providers Care Customer Relations Consultant Name Role Phone Cherise Patrick Primary Care Provider [phone] Reason for Referral * Diagnostic Imaging (Routine) - Pending Review Specialty Diagnoses / Procedures Referred By Jany martinez Referred To Contact Diagnoses Cataract of both eyes, unspecified cataract type Procedures IOL Biometry - OU - Both Eyes Bita Vega MD [address] [place] [address] Phone: tel: fax: [facility] (All Locations) Referral ID Status Reason Start Date Expiration Date V isits Requested Visits Authorized [id number] Pending Review 09/24/2024 10/24/2025 1 1 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 Reason for Visit * Diagnostic Imaging (Routine) - Pending Review Specialty Diagnoses / Procedures Referred By Jany martinez Referred To Contact Diagnoses Cataract of both eyes, unspecified cataract type Procedures IOL Biometry - OU - Both Eyes Bita Vega MD [address] [place] [address] Phone: tel: fax: [facility] (All Locations) Referral ID Status Reason Start Date Expiration Date V isits Requested Visits Authorized [id number] Pending Review 09/24/2024 10/24/2025 1 1 Encounter Details Date Type Department Care Team (Late st Contact Info) Description 09/24/2024 12:20 PM 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 [address] [place] [id number] Cataract of both eyes, unspecified cataract type (Primary Dx) Social History Tobacco Use Types [...] Never 04/16/2023 How often do you attend amish or taoist serv ices? Never 04/16/2023 Do you belong to any clubs o r organizations such as amish groups, unions, fraternal or athletic groups, or [...] on file Legal Sex Female 8:53 PM MINI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 Gender Identity Not on file Sexual Orientation Not on file documented as of this encounter Plan of Treatment Upcoming Encounters Date Type Department Care Team (Latest Contact Info) Description 01/10/2025 10:30 AM CDT Hospital Encounter [facility] Operating Room [facility] [place] [address] Bita Vega MD [address] [place] [address] 01/10/2025 10:30 AM CDT - 01/10/2025 11:15 AM CDT Surgery [facility] Operating Room [facility] [address] [place] [address] Bita Vega MD [address] [place] [address] EXTRACTION CATARACT - PHACOEMULSIFICATION AND LENS IMPLANT Scheduled Procedures Name Priority Associated Diagnoses Date/Ti me EXTRACTION CATARACT - PHACOEMULSIFICATION AND LENS IMPLANT 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 01/10/2025 10:30 AM CDT documented as of this encounter Procedures Procedure Name Priority Date/Time Associated Diagnosis Comments IOL BIOMETRY - OU - BOTH EYES Routine 09/24/2024 4:25 PM MINI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 Cataract of both eyes, unspecified cataract type documented in this encounter Results * IOL Biometry - OU - Both Eyes (09/24/2024 4:25 PM MINI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) AC IOL (OS) Unable CONTINUUM AC IOL (OD) 3.27 CONTINUUM White to White (OS) Unable CONTINUUM White to White (OD) 11.7 mm CONTINUUM A LENGTH (OS) Phthisis CONTINUUM A LENGTH (OD) Unable CONTINUUM Anatomical Region Laterality Modality Head Ophthalmic Axial Measurements Narrative 09/24/2024 4:50 PM MINI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 Right Eye Axial length was Unable. White to white was 11.7 mm. AC Depth was 3.27. Left Eye Axial length was Phthisis. White to white was Unable. AC Depth was Unable. Notes Immersion performed OD: Axial: 22.78 mm & LT: 3.64 mm Completely opaque cornea left eye (OS) Acceptable for surgical planning. 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
--- OUTSIDE RECORDS SUMMARY | 2024-11-17 03:12 | XMS_ITS | Encounter Summary ---
Author Organization [facility] Healthcare Address [address] [place] [address] Care Team Providers Care Collection Correspondent Name Role Phone Cherise Patrick Primary Care Provider [phone] Reason for Visit * Reason Comments Shortness [...] Expiration Date Visits Re quested Visits Authorized [id number] 1 1 Encounter Details Date Type Department Care Team (Late st Contact Info) Description 04/24/2023 4:30 PM CDT - 04/24/2023 5:00 PM CDT Surgery [facility] [address] [place] [address] Marilin Garcia MD [facility] [place] [address] ESOPHAGOGASTRODUODENOSCOPY Surgery Details Date/Time Status Location OR Service Patient Class Case Class Case Type Trauma Case? 04/24/2023 4:30 PM Posted [facility] ENDOSCOPY GI 09 ERCP Gastroenterology Inpatient Urgent - 24 hours Panel 1 Procedure LRB Anes Op Region Wound Class Comments ESOPHAGOGASTRODUODENOSCOPY N/A Monit or Anesthesia Care Abdomen Class II - Clean Contaminated SIGMOID BIOPSY N/A Monitor Anesthesia Care Class II - Clean Contaminated Surgeon Surgeon Role Service Panel Marilin Garcia MD Primary Ga stroenterology 1 documented in this encounter Social History [...] Never 04/16/2023 How often do you attend shinto or temple serv ices? 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 Gender Identity Not on file Sexual Orientation Not on file documented as of this encounter Last Filed Vital Signs Vital Sign Reading Time Taken Comments Blood Pressure 168/91 04/24/2023 3:00 PM CDT Pulse 88 04/24/2023 3:00 PM CDT Temperature 36.6 ??C (97.8 ??F) 04/24/2023 3:00 PM CD T Respiratory Rate 22 04/24/2023 3:00 PM CDT Oxygen Saturation 92% 04/24/2023 3:00 PM CDT Inhaled Oxygen Concentration - - [...] Patient Age - 32 yrs Patient - [id number] [facility] - [id number] Document Creation Date: 04/26/2023 Admitting Provider, : Marilin Garcia MD Discharge Provider, : No att. providers found Primary Care Physician at Discharge: Cherise Patrick PA [phone] Admission Date: 04/15/2023 Discharge Date/time: 04/26/2023 Admission Location: [facility] LOS - LOS: 11 days DETAILS OF [...] center, [facility] given the fact we have no podiatry service active in our hospital. We [facility], he [...] BIOPSY Outpatient Follow-Up: Contact Information for Follow-ups [address] [address] Next Steps: Call Instructions: As needed for psychiatric services. [facility] [address] [place] [phone] Next Steps: Call Instructions: As needed for psychiatric services. Please schedule an appointment with the following provider(s): [address] [phone] Call As needed for psychiatric services. [facility] [address] [place] [phone] Call As needed for psychiatric services. ANCILLARY INFORMATION Other Procedures & Diagnostic Tests: US Arterial Doppler Lower Extremity Bilateral Result Date: 04/18/2023 [employer] Job ID: [id number] [facility] Document ID: [id number] Dictated date/time: [id number] REASON FOR STUDY Gangrene right heel. Triphasic flow in the right common femoral, popliteal, dorsalis pedis and posterior vessels. NORMA is 1/1, DP/PT. IMPRESSION Normal indices waveforms in the right lowerextremity with no significant distal ischemia. Job ID/Internal Job ID: [id number] US Kidney Complete Result Date: 04/16/2023 EXAM [...] Electronically signed by Jed CROWE T: ReportID: [id number] Reading Location: [id number] Transthoracic Echo (TTE) Complete W Doppler/CF Result Date: 04/16/2023 Adult Echocardiogram + + :Name: LEEROY CANALES Study Date: 04/16/2023 Status: B : : Patient Location: [address]^[id number]^MHBHeight: 67 in : : Weight: 318 lbBP: [...] with Normals : : (0.6- 1.2 LVIDd: (3.5-5.7Ao root diam: (2.0-3.7 : :IVSd: 1.2 cmcm) [...] mmHg RAP systole: 8.0 mmHg Electronically signed by:Sultan Jina MD 04/16/2023 12:49 PM NM Pulmonary [...] Amor Rodriguez M.D. LB T: Report ID: [id number] Reading Location: [place] [address] XR Foot Right 3 or More Views [...] signed by Rio PHILLIPS T: Report ID: [id number] Reading Location: [id number] XR Chest 1 Vw Portable Result Date: [...] signed by Rio PHILLIPS T: Report ID: [id number] Reading Location: [id number] Recent Labs: Recent Labs Lab Units 04/25/23 0804/24/23203404/24/23 0758 WBC K/cumm 17.9* 17.2* 16.6* HEMOGLOBIN g/dL 8.0* 8.3* 7.9* HEMATOCRIT % 26.9* 27.7* 26.7* PLATELETS K/cumm 548* 523* 500* Recent Labs Lab Units 04/25/23 0833 04/24/23203404/24/23 [...] -- 1.20* 1.20* -- 1.20* -- 1.30* [id number] mL/min/1.73 m2 -- -- 62 62 -- [...] 04/25/23 1057 04/25/23 0833 04/24/23 0739 04/24/23 0620 04/23/23 1207 04/23/23 0923 SODIUM mmol/L -- -- -- 141 142 [...] displayed. Recent Labs Lab Units 04/25/23 0833 04/24/23 0620 04/23/23 0923 ALK PHOS Units/L 255* 250* 233* 241* BILIRUBIN TOTAL mg/dL 0.4 0.3 0.4 0.4 TOTAL PROTEIN g/dL 5.9* 5.8* 5.7* 5.8* ALT Units/L 27 26 14 11 AST Units/L 50* 50* 22 13 Recent Labs Lab Units 04/25/23 0833 04/24/23 0620 04/23/23 0923 MAGNESIUM mg/dL 1.5 1.5 1.5 Lab [...] Oral Nutrition Supplements Select Supplement: Glucerna - Bryson; Quantity (# of cans): 1 can With Lunch Question Answer Comment Select Supplement: Glucerna - Bryson Quantity (# of cans): 1 can 04/25/23 [...] Prevention Hotline (Available by calling or texting 341 to speak with a counselor for support or additional resources) [facility] 583-301-4080 (Crisis hotline) [facility] 006-963-1471 (Crisis hotline) Call for Help-Living Room Crisis Support [phone] (Immediate crisis and mental health support in a calm, comfortable environment) [facility] FOR UNINSURED OR MEDICAID [facility] [phone] ([facility]) [facility] [phone] ([facility]) SUBSTANCE USE TREATMENT [facility] ([place] option for treatment) [facility] ([place] option for treatment) [facility] [phone]- ([place] option for assistance in locating treatment) * Discharge Instr - Diet* Radha Narvaez RD - 04/23/2023 3:51 PM CDT Continue to [...] doctor for referral to outpatient nutritioncounseling. Call [facility] Dietitian's office at [phone] for questions about your diet. Additional resources available from the [place] [employer] can be found at www.diabetes.org/nutrition [...] GEN IP hosp with plan readmit Ambulance [facility] Pt transferred to [facility]; pt belongings with pt; report given documented in this encounter Progress Notes * Bhakti Palacios - 04/25/2023 3:16 PM CDT 04/25/23 1500 Patient Spiritual Assessment Spirituality Assessed Yes Anabaptist Affiliation (No preference) Clinical Encounter Type Visited With Patient Pt stated she has no spiritual needs at this time. * Radha Narvaez, RD - 04/25/2023 2:28 PM CDT Nutrition [...] - monitor. Last BM: 04/22 per pt. [facility] hospital course. Will continue to monitor. 04/25/23: [...] is on waiting list to transfer to [facility] for wound debridement. Will continue to monitor. [...] of Weight Used for Estimated Protein : [place] Protein Needs Based on g/k.2 (18% of total kcals) Total Protein Estimated Needs (gm): 73.44 Fluid Estimated Fluid Needs Type of Weight Used for Estimated Fluid Needs: [place] Fluid Needs Based on : 25 ml/kg [...] History: Diagnosis Date CHF (congestive heart failure) ([facility]) (HCC) CKD (chronic kidney disease) Diabetes mellitus (HCC) Hx of AKA (above knee amputation) ([facility]) (HCC) Left Hypertension Past Surgical History: Procedure [...] patient a 15 gram carbohydrate snack. 04/15/23 0519 Diet Instructions Continue to follow a consistent [...] doctor for referral to outpatient nutritioncounseling. Call [facility] Dietitian's office at [phone] for questions about your diet. Additional resources available from the [place] [employer] can be found at www.diabetes.org/nutrition Nutrition Follow-Up : 04/29/23 (PO/supp intake) Radha Narvaez RD Cosigned by Peggy Leblanc RD at 04/25/2023 2:52 PM CDT * Dante Stubbs MD - 04/25/2023 12:44 PM CDT Progress Note Infectious Diseases Chief complaint: Right calcaneal bone osteomyelitis. Type 2 diabetes. Obesity. Subjective Awaiting transferred to [facility] for debridement. Denies any fever. Some pain [...] intra-catheter Q8H Amilcar Vee MD 10 mL at04/25/23 0428 And sodium [...] Q24H Dante Fitzgerald MD 2,000 mg at 04/25/23 1009 DAPTOmycin (CUBICIN) 50 mg/mL sodium chloride 0.9% 700 mg 700 mg intravenous Q24H Amilcar Hancock MD 700 mg at 04/24/23 1519 dextrose (GLUTOSE) 40 % gel 15 g 15 g oral Q15 Min PRAmilcar Vaughan MD 15 g at 04/22/23 1155 Or [...] Amilcar Vee MD 7,500 Units at 04/22/23 1520 HYDROmorphone (DILAUDID) injection 0.5 mg 0.5 mg intravenous Q4H PRN Hien Rabago MD 0.5 mgat 04/18/23 181 insulin lispro (HumaLOG, ADMELOG) 100 unit/mL injection [...] Apparently patient is to be transferred to [facility] for debridement. Patient has been accepted at [...] 5. Chronic kidney disease Dante Stubbs MD [facility] Infectious Disease [place] Office [phone] * Esthela Carmen PTA - 04/25/2023 11:10 AM CDT Physical Therapy [...] fluctuates, fair- Seated Seated-Exercises Lower extremity Reps/Sets / Seated-Motion AROM;AAROM Seated-Exercise Comments ankle rom, laq, [...] Poor endurance and tolerance Recommendation/Plan PT Recommendation/Plan Senior Care Facility Recommend SNF due to Risk of [...] RN 04/24/23 1600 Eunice Ferguson RN 04/21/23 7828 Eunice Ferguson RN 04/20/23 3570 * Golden Kidd MD - 04/25/2023 9:25 [...] Intake/Output Summary (Last 24 hours) at 04/25/2023 0925 Last data filed at 04/25/2023 0838 Gross [...] is significant for Recent Labs Lab Units 04/24/23203404/24/23 0758 04/23/23 2144 WBC K/cumm 17.2* 16.6* [...] TRICHUA NM GI Bleed Study EXAM DESCRIPTION: OR GI BLEED STUDY RADIOPHARMACEUTICAL: 22 mCi Tc-99m [...] by Primo Mccarthy M.D. T: Report ID: [id number] Reading Location: [place] [address] Assessment and Plan Principal Problem: Rectal bleed [...] any adjustments. Thank you. Golden Kidd MD [facility] Medical Group [facility] Nephrology and Hypertension Office: [phone] * Willie Castro MD - 04/25/2023 9:23 [...] center, we are discussing the case with [facility] for possible transfer given the fact we have no podiatry service active in our hospital. We [facility] the [facility], he [...] History: Diagnosis Date CHF (congestive heart failure) ([facility]) (HCC) CKD (chronic kidney disease) Diabetes mellitus (HCC) Hx of AKA (above knee amputation) ([facility]) (HCC) Left Hypertension Objective Vitals: 24hr Min/Max: [...] PRN Hien Rabago MD 0.5 mgat 04/18/23 181 insulin glargine (LANTUS, SEMGLEE) 100 unit/mL injection [...] Problems: Acute diastolic congestive heart failure (CMS/HCC) ([facility]) Type II diabetes mellitus with foot ulcer (HCC) Hypertension Acute respiratory failure with hypoxia (CMS/HCC) ([facility]) Diarrhea Acute kidney failure (HCC) Elevated troponin Osteomyelitis ([facility]) Wounds, multiple Plan # acute hypoxemic respiratory [...] [facility], he said they do not do a debridement by his service, he will recommend an amputation or debridement by general surgery. -I contacted [facility] team discussed with the hospitalist team (Dr. Elder) they agree for transfer surgical team agree for consultation for possible debridement. -the patient is accepted for transfer at [facility] # diabetes mellitus - blood glucose is [...] not active at this moment. -discuss with [facility] team patient is to be transfer she [...] 49 on room air, [place] [address]. Urinalysis showed UTI. Chest x-ray showed Findings [...] up-to-date with COVID-19 vaccine. She lives in [place], [place]. She does havea cat at home [...] on 4 liter[place] [address], albumin 1.3, fluid balance was-1 L. She [...] movement overnight. Albumin [place] 1.3, [place] [address]. 04/19 I saw the patient this morning [...] [place] [address], albumin is 1.3. Her fluid balance was-5400 [...] [place]. [place] [address]. 04/23 -Patient was seen and examined. Lab [...] on 4 liter[place]. [place] [address], albumin is 2. Her fluid balance was-3500 [...] 650 mg 650 mg oral Q4H PRN Chapagain, Amilcar, MD bumetanide (BUMEX) tablet 2 mg 2 mg oral BID DIURETIC Golden Kidd MD 2 mg at 04/24/23 1518 buPROPion (WELLBUTRIN) tablet 50 mg 50 mg oral BID Hien Rabago MD 50 mg at 04/21/23 2226 sodium chloride 0.9% flush 0.5-20 mL 0.5-20 mL intra-catheter Q8H [facility] Amilcar Hancock MD 10 mL at04/25/23 [...] 2,000 mg 2,000 mg intravenous Q24H ERICK Dante Stubbs MD 2,000 mg at 04/23/23 0936 DAPTOmycin [...] Nightly Amilcar Hancock MD 1 Units at 04/24/232120 insulin lispro (HumaLOG, ADMELOG) 100 unit/mL injection [...] topical BID Willie Castro MD Given at 04/24/232120 ondansetron ODT (ZOFRAN-ODT) disintegrating tablet 4 mg 4 mg oral Q6H PRN Amilcar Hancock MD Or ondansetron (ZOFRAN) injection 4 mg 4 mg intravenous Q6H PRN Amilcar Hancock MD 4 mg at 04/23/23 182 potassium chloride ER (KLOR-CON) extended release tablet [...] arm Left arm Left arm Patient Position: [facility] 30 degrees HOB 30 degrees HOB 30 [...] 2.5 % Basophil pct 0.2 % Images: NM Pulmonary Perfusion Imaging Result Date: [...] Amor Rodriguez M.D. LB T: Report ID: [id number] Reading Location: [id number] XR Foot Right 3 or More Views [...] signed by Rio PHILLIPS T: Report ID: [id number] Reading Location: [id number] XR Chest 1 Vw Portable Result Date: [...] signed by Rio PHILLIPS T: Report ID: [id number] Reading Location: [id number] Assessment and Plan: Assessment Acute hypoxemic respiratory [...] CREATED IN PART WITH THE ASSISTANCE OF [employer] VOICE RECOGNITION SOFTWARE. CLASSROOM PARAPROFESSIONAL VARIANCES MAY OCCUR. For patients or family members viewing this note through Qomutyt: This note was written as a communication [...] [facility] the [facility], [...] dicussed the case with [facility] and [facility] who refused the patient for transfer, he said they do not do a debridement by his service, he will recommend an amputation or debridement by general surgery. -I contacted [facility] team discussed with the hospitalist team (Dr. Elder) they agree for transfer surgical team agree for consultation for possible debridement. -the patient is accepted for transfer at [facility] # diabetes mellitus - patient fasting blood [...] Ongoing CODE status: Full Code Discharge disposition: [facility] It took me 37 minutes review the [...] Route Frequency Provider Last Rate Last Admin [MAR Hold] acetaminophen (TYLENOL) tablet 650 mg 650 mg oral Q4H PRN Amilcar Hancock MD [MAR Hold] bumetanide (BUMEX) tablet 2 mg 2 mg oral BID DIURETIC Golden Kidd MD [JAN Hold] buPROPion (WELLBUTRIN) tablet 50 mg 50 mg oral BID Hien Rabago MD 50 mg at 04/21/236 [MAR Hold] sodium chloride 0.9% flush 0.5-20 mL 0.5-20 mL intra-catheter Q8H ERICK Amilcar Hancock MD 10 mL at 04/24/23 0556 And [MAR Hold] sodium chloride 0.9% flush 0.5-20 mL 0.5-20 mL intra-catheter PRN Amilcar Hancock MD And [JAN Hold] Carrier Fluids for Secondary Infusion - 0.9% Sodium Chloride 30 mL intravenous PRN Amilcar Hancock MD 30 mL at 04/22/232053 [JAN Hold] Carrier Fluids for Secondary Infusion - 0.9% Sodium Chloride 30 mL intravenous PRN Hien Rabago MD [JAN Hold] cefTRIAXone (ROCEPHIN) 2,000 mg/20 mL in sterile water (premix) 2,000 mg 2,000 mg intravenous Q24H [facility] Dante Stubbs MD 2,000 mg at 04/23/23 0936 [JAN Hold] DAPTOmycin (CUBICIN) 50 mg/mL sodium chloride 0.9% 700 mg 700 mg intravenous Q24H Amilcar Hancock MD 700 mg at 04/23/23 1628 [JAN Hold] dextrose (GLUTOSE) 40 % gel 15 g 15 g oral Q15 Min PRN Amilcar Hancock MD 15 g at 04/22/23 1155 Or [MAR Hold] dextrose (D10W) 10% bolus 250 mL 250 mL intravenous Q15 Min PRN Amilcar Hancock MD [JAN Hold] ergocalciferol (VITAMIN D) capsule 50,000 Units 50,000 Units oral Weekly Golden Kidd MD 50,000 Units at 04/17/23 1437 [JAN Hold] folic acid (FOLVITE) tablet 1 mg 1 mg oral Daily Hien Rabago MD 1 mg at 04/22/23 0916 [JAN Hold] glucagon injection 1 mg 1 mg intramuscular Q30 Min PRN Amilcar Hancock MD [Held by Provider] heparin 5,000 unit/mL injection 7,500 Units 7,500 Units subcutaneous Q8H [facility] Amilcar Hancock MD 7,500 Units at 04/22/23 1520 [JAN Hold] HYDROmorphone (DILAUDID) injection 0.5 mg 0.5 mg intravenous Q4H PRN Hien Rabago MD 0.5 mg at 04/18/23 1818 [JAN Hold] insulin lispro (HumaLOG, ADMELOG) 100 unit/mL injection 0-4 Units 0-4 Units subcutaneousNightly Amilcar Hancock MD [MAR Hold] insulin lispro (HumaLOG, ADMELOG) 100 unit/mL [...] topical BID Willie Castro MD Given at 04/23/232154 [JAN Hold] ondansetron ODT (ZOFRAN-ODT) disintegrating tablet [...] flush 0.5-20 mL 0.5-20 mL intra-catheter Q8H [facility] Marilin Cho MD sodium chloride 0.9% flush 0.5-20 mL 0.5-20 mL intra-catheter PRN Marilin Cho MD [JAN Hold] sodium chloride 0.9% flush 5-20 mL 5-20 mL intra-catheter PRN Hien Rabago MD [MAR Hold] sodium chloride 0.9% flush 5-20 mL [...] (cardiac) (XYLOCAINE) preservative free injection intravenous PRN HoldTrisha rosen CRNA 80 mg at 04/24/23 1006 propofoL (DIPRIVAN) 10 mg/mL IV intravenous PRN HoldenerTrisha LANGUAGE TRANSLATOR 10 mg at 04/24/23 1014 No Known [...] Respiratory status is stable Dante Stubbs MD [facility] Infectious Disease [place] Office [phone] * Esthela Carmen PTA - 04/24/2023 10:16 [...] 30 mL intravenous PRN 30 mL at 04/22/232053 Carrier Fluids for [...] by Primo Mccarthy M.D. T: Report ID: [id number] Reading Location: [place] [address] Assessment and Plan Principal Problem: Rectal bleed [...] as well Thank you. Golden Kidd MD [facility] Medical Group [facility] Nephrology and Hypertension Office: [phone] * Darell Paniagua MD - 04/24/2023 5:59 [...] 49 on room air, [place] [address]. Urinalysis showed UTI. Chest x-ray showed Findings [...] up-to-date with COVID-19 vaccine. She lives in [place], [place]. She does havea cat at home [...] on 4 liter[place]. [place] [address], albumin 1.3, fluid balance was-1 L. She [...] movement overnight. Album[place] 1.3[place] [address]. 04/19 I saw the patient this morning [...] [place] [address], albumin is 1.3. Her fluid balance was-5400 [...] [place]. [place] [address]. 04/23 -Patient was seen and examined. Lab [...] on 4 liter[place] [address], albumin is 2. Her fluid balance was-3500 mL. She didhave bowel movement overnight. Past Medical History: Past Medical History: Diagnosis Date CHF (congestive heart failure) ([facility]) (HCC) CKD (chronic kidney disease) Diabetes mellitus (HCC) Hx of AKA (above knee amputation) ([facility]) (HCC) Left Hypertension Surgical History: Past Surgical [...] Q8H ERICK Amilcar Hancock MD 10 mL at04/24/23 0556 And sodium chloride 0.9% flush 0.5-20 mL 0.5-20 mL intra-catheter PRN Amilcar Hancock MD And Carrier Fluids for Secondary Infusion - 0.9% Sodium Chloride 30 mL intravenous PRN Amilcar Hancock MD 30 mL at 04/22/234 Carrier Fluids for Secondary Infusion - 0.9% Sodium Chloride 30 mL intravenous PRN Hien Rabago MD cefTRIAXone (ROCEPHIN) 2,000 mg/20 mL in sterile water (premix) 2,000 mg 2,000 mg intravenous Q24H [facility] Dante Stubbs MD 2,000 mg at 04/23/23 0936 DAPTOmycin [...] injection 80 mg 80 mg intravenous Q8H [facility] Golden Kidd MD 80 mg at04/24/23 0556 glucagon injection 1 mg 1 mg intramuscular Q30 Min PRN Amilcar Hancock MD [Held by Provider] heparin 5,000 unit/mL injection 7,500 Units 7,500 Units subcutaneous Q8H [facility] Amilcar Hancock MD 7,500 Units at [...] RN/MD Notified POCT glucose Collection Time: 04/23/23 3:48 [...] 1.9 % Basophil pct 0.2 % Images: NM Pulmonary Perfusion Imaging Result Date: [...] Amor Rodriguez M.D. LB T: Report ID: [id number] Reading Location: [id number] XR Foot Right 3 or More Views [...] signed by Rio PHILLIPS T: Report ID: [id number] Reading Location: [id number] XR Chest 1 Vw Portable Result Date: [...] signed by Rio PHILLIPS T: Report ID: [id number] Reading Location: [id number] Assessment and Plan: Assessment Acute hypoxemic respiratory [...] CREATED IN PART WITH THE ASSISTANCE OF [employer] VOICE RECOGNITION SOFTWARE. CLASSROOM PARAPROFESSIONAL VARIANCES MAY OCCUR. For patients or family members viewing this note through Qomutyt: This note was written as a communication [...] center, [facility] given the fact we have no podiatry service active in our hospital. We [facility] the [facility], [...] flush 0.5-20 mL 0.5-20 mL intra-catheter Q8H [facility] Amilcar Hancock MD 10 mL at04/21/23 [...] injection 7,500 Units 7,500 Units subcutaneous Q8H [facility] Amilcar Hancock MD 7,500 Units at [...] 1 spray each nostril Q2H PRN Darell Painagua MD sodium chloride 0.9% flush 5-10 mL [...] Problems: Acute diastolic congestive heart failure (CMS/HCC) ([facility]) Type II diabetes mellitus with foot ulcer ([facility]) Hypertension Acute respiratory failure with hypoxia (CMS/HCC) ([facility]) Diarrhea Acute kidney failure ([facility]) Elevated troponin Osteomyelitis ([facility]) Wounds, multiple Plan # acute hypoxemic respiratory [...] dicussed the case with Dr. Cook and [facility] who refused the patient for transfer, [...] Navarro LPC - 04/23/2023 10:35 AM CDT [facility] called [facility] regarding consult. She states she can ask the patient but is not sure if she will be willing since she has turned it down once. An [employer] secure chat message was sent to the RN. 1206 RN messaged patient can do the consult after lunch. 1548 HP messaged RN to see if patient can do the consult now. 1607 They are getting the iPad now. 1629 Patient has the iPad. * Shakila Harvey, CAMPUS EXECUTIVE DIRECTOR - 04/23/2023 10:13 AM CDT Physical Therapy [...] sitting balance Seated Seated-Exercises Lower extremity Reps/Sets 10 Seated-Motion AROM;AAROM Seated-Exercise Comments ankle pumps, knee [...] flush 0.5-20 mL 0.5-20 mL intra-catheter Q8H [facility] Amilcar Hancock MD 10 mL at04/22/23 [...] (premix) 2,000 mg 2,000 mg intravenous Q24H [facility] Dante Stubbs MD 2,000 mg at 04/23/23 0936 DAPTOmycin [...] 80 mg 80 mg intravenous Q8H ERICK Golden Kidd MD 80 mg at04/22/23 204 glucagon injection 1 mg 1 mg intramuscular Q30 Min PRN Aimlcar Hancock MD [Held by Provider] heparin 5,000 unit/mL injection 7,500 Units 7,500 Units subcutaneous Q8H [facility] Amilcar Hancock MD 7,500 Units at [...] flush 5-20 mL 5-20 mL intra-catheter PRN Danet Stubbs MD spironolactone (ALDACTONE) tablet 50 mg 50 mg oral BID DIURETIC Golden Kidd MD 50 mg at 04/23/23 09 thiamine (VITAMIN B-1) tablet 50 mg 50 [...] of greater than 10,000 Dante Stubbs MD [facility] Infectious Disease [place] Office [phone] * Golden Kidd MD - 04/23/2023 9:57 AM CDT Renal Progress Note Admit Date: 04/15/2023 Days: 8 Reason for Follow up: Acute on chronic kidney failure Clinical Course/New Symptoms Reports nausea vomiting last night feeling better this morning. Has just returned from [employer] study to evaluate potential GI bleed Data [...] (premix) 2,000 mg 2,000 mg intravenous Q24H [facility] DAPTOmycin (CUBICIN) 50 mg/mL sodium chloride 0.9% 700 mg 700 mg intravenous Q24H ergocalciferol (VITAMIN D) capsule 50,000 Units 50,000 Units oral Weekly folic acid (FOLVITE) tablet 1 mg 1 mg oral Daily furosemide (LASIX) 10 mg/mL injection 80 mg 80 mg intravenous Q8H [facility] [Held by Provider] heparin 5,000 unit/mL injection 7,500 Units 7,500 Units subcutaneous Q8H [facility] insulin lispro (HumaLOG, ADMELOG) 100 unit/mL injection [...] RBCUA, EPITHUA, MUCUSUA, CASTUA,CRYSTALUA, BACTERIAUA, YEASTUA, TRICHUA OR GI Bleed Study EXAM DESCRIPTION: OR GI BLEED STUDY RADIOPHARMACEUTICAL: 22 mCi Tc-99m [...] 9:42 AM - Electronically signed by Primo JOSE T: Report ID: [id number] Reading Location: [place] [address] Assessment and Plan Active Problems: Acute diastolic [...] on antibiotics. Thank you. Golden Kidd MD [facility] [place] [facility] Office: [phone] * Darell Paniagua MD - 04/23/2023 5:59 [...] 49 on room air, [place] [address]. Urinalysis showed UTI. Chest x-ray showed Findings [...] up-to-date with COVID-19 vaccine. She lives in [place], [place]. She does havea cat at home [...] on 4 liter[place]. [place] [address], albumin 1.3, fluid balance was-1 L. She [...] movement overnight. Albumin [place] 1.3[place] [address]. 04/19 I saw the patient this morning [...] [place] [address], albumin is 1.3. Her fluid balance was-5400 [...] [place] [address]. 04/23 -Patient was seen and examined. Lab [...] History: Diagnosis Date CHF (congestive heart failure) ([facility]) (HCC) CKD (chronic kidney disease) Diabetes mellitus ([facility]) Hx of AKA (above knee amputation) ([facility]) ([facility]) Left Hypertension Surgical History: Past Surgical History: Procedure Laterality Date ABOVE KNEE LEG AMPUTATION Left Current Medications: Current Facility-Administered Medications Medication Dose Route Frequency Provider Last Rate Last Admin acetaminophen (TYLENOL) tablet 650 mg 650 mg oral Q4H PRN Amilcar Hancock MD albumin 25 % bottle 25 g 25 g intravenous TID Dallas Peña MD 25 g at 04/22/232041 buPROPion (WELLBUTRIN) tablet 50 mg 50 mg oral BID Hien Rabago MD 50 mg at 04/21/232225 sodium chloride 0.9% flush 0.5-20 mL 0.5-20 [...] Q24H Dante Fitzgerald MD 2,000 mg at 04/22/23 0916 DAPTOmycin [...] injection 80 mg 80 mg intravenous Q8H [facility] Golden Kidd MD 80 mg at04/22/23 2042 glucagon injection 1 mg 1 mg intramuscular Q30 Min PRN Amilcar Hancock MD [Held by Provider] heparin 5,000 unit/mL injection 7,500 Units 7,500 Units subcutaneous Q8H Amilcar Vee MD 7,500 Units at 04/22/23 1520 HYDROmorphone [...] topical BID Willie Castro MD Given at 04/22/232053 ondansetron ODT (ZOFRAN-ODT) disintegrating tablet 4 mg [...] Amor Rodriguez M.D. LB T: Report ID: [id number] Reading Location: [id number] XR Foot Right 3 or More Views [...] signed by Rio PHILLIPS T: Report ID: [id number] Reading Location: [id number] XR Chest 1 Vw Portable Result Date: [...] signed by Rio PHILLIPS T: Report ID: [id number] Reading Location: [id number] Assessment and Plan: Assessment Acute hypoxemic respiratory [...] CREATED IN PART WITH THE ASSISTANCE OF [employer] VOICE RECOGNITION SOFTWARE. CLASSROOM PARAPROFESSIONAL VARIANCES MAY OCCUR. For patients or family members viewing this note through Qomutyt: This note was written as a communication [...] NT Reviewed By Eunice Ferguson RN 04/21/23 8995 Eunice Ferguson RN 04/20/23 8061 * Willie Castro MD - 04/22/2023 11:41 [...] History: Diagnosis Date CHF (congestive heart failure) ([facility]) ([facility]) CKD (chronic kidney disease) Diabetes mellitus ([facility]) Hx of AKA (above knee amputation) ([facility]) ([facility]) Left Hypertension Objective Vitals: 24hr Min/Max: Temp [...] flush 5-10 mL 5-10 mL intra-catheter Q12H [facility] Hien Rabago MD 10 mL at04/21/23 0920 [...] Ongoing CODE status: Full Code Discharge disposition: [facility] It took me 39 minutes review the [...] BID Hien Rabago MD 50 mg at 04/21/232225 sodium chloride 0.9% flush 0.5-20 mL 0.5-20 mL intra-catheter Q8H [facility] Amilcar Hancock MD 10 mL at04/22/23 [...] (premix) 2,000 mg 2,000 mg intravenous Q24H [facility] Dante Stubbs MD 2,000 mg at [...] injection 80 mg 80 mg intravenous Q8H [facility] Golden Kidd MD 80 mg at04/22/23 0916 glucagon injection 1 mg 1 mg intramuscular Q30 Min PRN Amilcar Hancock MD heparin 5,000 unit/mL injection 7,500 Units 7,500 Units subcutaneous Q8H [facility] Amilcar Hancock MD 7,500 Units at [...] injection 7 Units 0.05 Units/kg subcutaneous TID withmeAmilcar Berger MD 7 Units at 04/16/23 1801 ipratropium-albuteroL [...] flush 5-10 mL 5-10 mL intra-catheter Q12H [facility] Dante Stubbs MD 10 mL at 04/22/23 [...] with BMI of 55 Dante Stubbs MD [facility] Infectious Disease [place] Office [phone] * Esthela Carmen PTA - 04/22/2023 9:49 [...] at 04/22/2023 0831 Last data filed at 04/21/20232034 Gross per 24 hour Intake 370 ml [...] mg intravenous Q4H PRN 0.5 mg at 06/16/23 1818 ipratropium-albuteroL (DUO-NEB) 0.5-2.5 mg/3 mL nebulizer [...] Rio Burleson M.D. KN T: Report ID: [id number] Reading Location: [place] [address] Assessment and Plan Active Problems: Acute diastolic [...] for now Thank you. Golden Kidd MD [facility] Nephrology and Hypertension Office: [phone] * Darell Paniagua MD - 04/22/2023 6:18 [...] 49 on room air, [place] WBC was [address]. Urinalysis showed UTI. Chest x-ray showed Findings [...] up-to-date with COVID-19 vaccine. She lives in [place], [place]. She does havea cat at home [...] on 4 liter[place]. [place] [address], albumin 1.3, fluid balance was-1 L. She [...] movement overnight. Albumin [place] 1.3, [place] [address]. 04/19 I saw the patient this morning [...] [place] [address], albumin is 1.3. Her fluid balance was-5400 [...] [place] [address]. Past Medical History: Past Medical History: Diagnosis Date CHF (congestive heart failure) ([facility]) (HCC) CKD (chronic kidney disease) Diabetes mellitus (HCC) Hx of AKA (above knee amputation) ([facility]) (HCC) Left Hypertension Surgical History: Past Surgical [...] BID Hien Rabago MD 50 mg at 04/21/232225 sodium chloride 0.9% flush 0.5-20 mL 0.5-20 mL intra-catheter Q8H [facility] Amilcar Hancock MD 10 mL at04/22/23 [...] ERICK Hien Rabago MD 10 mL at04/21/23 213 sodium chloride 0.9% flush 5-10 mL 5-10 mL intra-catheter Q12H [facility] Dante Stubbs MD sodium chloride 0.9% flush 5-20 mL [...] for agitation and confusion. Physical Exam: Vitals: 04/21/23 1940 04/21/23 2322 04/21/23 2328 04/22/23 0305 BP: 149/76 136/73 150/80 BP Location: Left arm Left arm Left arm Patient Position: HOB 30 degrees HOB 30 degrees HOB 30 degrees;Lying Pulse: 87 97 91 88 Resp: Temp: 37.6 ??C (99.7 ??F) 36.4 ??C [...] RN/MD Notified POCT glucose Collection Time: 04/21/23 10:47 [...] Imaging Result Date: 04/15/2023 Narrative: EXAM DESCRIPTION: OR PULMONARY PERFUSION IMAGING RADIOPHARMACEUTICAL: 4 mCi Tc-99m [...] Amor Rodriguez M.D. LB T: Report ID: [id number] Reading Location: [id number] XR Foot Right 3 or More Views [...] signed by Rio PHILLIPS T: Report ID: [id number] Reading Location: [id number] XR Chest 1 Vw Portable Result Date: [...] signed by Rio PHILLIPS T: Report ID: [id number] Reading Location: [id number] Assessment and Plan: Assessment Acute hypoxemic respiratory [...] CREATED IN PART WITH THE ASSISTANCE OF [employer] VOICE RECOGNITION SOFTWARE. CLASSROOM PARAPROFESSIONAL VARIANCES MAY OCCUR. For patients or family members viewing this note through Qomutyt: This note was written as a communication [...] consult and will assess pt when a QMHP is available. ROVERTO [facility] Navigator * Reba Greer RN - 04/21/2023 4:32 PM CDT Case Management Progression of Care Note: Continued Stay Review: Contacted Dr Sharma, who is unavailable for this week. General surgery consulted for possible debridement of foot. Patient will need half-way antibiotic therapy. 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 Prior Function Level of [place] Dependent with homemaking;Needs assistance with functional transfers;Needs [...] Brother was lifting pt to transfer to [facility] [place] day and to w/c. Pt was [...] proximal support to attempt.) RUE Grasp (functional logging equipment operator strength) LUE Grasp (functional logging equipment operator strength) Bed Mobility 1 Bed Mobility From [...] management) OT Equipment Recommended Hospital bed (bariatric [facility]) OT - Next Appointment 05/05/23 OT Evaluation [...] (from Occupational Therapy) Active Problems Problem: OT [facility] Start Date: 04/21/23 Goal Start Date Expected End Date End Date OT [facility] 1 04/21/23 05/05/23 -- Goal Details: Pt will complete supine to sit EOB with MOD assist. Goal Start Date Expected End Date End Date OT [facility] 2 04/21/23 05/05/23 -- Goal Details: Pt will complete grooming from EOB with G- balance, bimanual UE in midline, SBA with set up. Goal Start Date Expected End Date End Date OT [facility] 3 04/21/23 05/05/23 -- Goal Details: Pt will complete anterior hygiene for incontinence management from bed level with MINassist, for increased skin integrity. Goal Start Date Expected End Date End Date OT [facility] 1 04/21/23 04/28/23 -- Goal Details: Pt will be independent with bilateral resistive band UB strengthening HEP Goal Start Date Expected End Date End Date OT [facility] 2 04/21/23 04/28/23 -- Goal Details: Pt will demonstrate independent initiation of scheduled bed level pressure management. * Gene Gay, PT - 04/21/2023 11:10 AM CDT Physical Therapy 04/21/23 4740 General Chart Reviewed Yes Session Type Evaluation [...] CHF. The Pt has PMH of: L FR[place], morbid obesity, acute osteomyelitis of R foot/calcaneus. [...] foot WB'ing status after Pt isseen by Business Services Sales Agent. Pt has been sleeping on an Air Mattress at home. Sits up on edge of air mattress for meals. Home Living Type of Home [facility] Home Layout Able to live on main level with bedroom/bathroom Home Access Level entry Bathroom Equipment Commode (Pt has drop arm BSC.) Home Mobility Equipment-Available Sliding Board;Wheelchair-manual Home Mobility Equipment-Currently Using Wheelchair-manual Additional Comments Pt reportrs that, when she first went home after being discharged from [facility], per brother could help her pivot to the BSC. Now she has not been out of bed in a while. Prior Function Level of [place] Needs assistance with ADLs;Needs assistance with functional transfers;Dependent with homemaking Lives With Family;Mother;Other (Comment) Receives Help From Family Driving No Fall within the last 6 months Yes Prior Function Comments Pt states her original amputation was at [facility], then shetransferred to [facility] before she was discharged home. Please see O.T. notes for more details. (bed bound last 2 wks. After L AKA, went to Acute Care for rehab. No prosthesis. Brother was lifting pt to [facility] [place] & to w/c. Pt was able to propel w/c. has slide board for car transfers. unsure last time used. Gets assist for incontinence, bedbath.) Activity Tolerance Endurance Tolerates 10 - 20 min activity with multiple rests Activity Tolerance Comments Pt encouraged to rest, as needed. Pain Assessment Pain Assessment Presaud-Pizarro FACES Persaud-Pizarro FACES Pain Rating 0 Pain [...] activity;Therapeutic exercise (Will need to check with Business Services Sales Agent to see about future R LE WB'ing precautions/restrictions.) PT Equipment Recommended (S) Hospital bed;Other (Comment) (Family may also benefit from Stephany Lift, but the home layout will need to be assessed first, and Family will need to be trained. We will need to see if stephany lift sling will work since Pt has Erik GONZALEZ. ) Progress during current admission Slow progress, [...] ADL status posted within medical record. RN Marcio) made aware. PCT present for portion of [...] improved creatinine at 1.5 Dante Stubbs MD [facility] Infectious Disease [place] Office [phone] * Dallas Peña MD - 04/21/2023 9:57 [...] Intake/Output Summary (Last 24 hours) at 04/21/2023 0940 Last data filed at 04/21/2023 0920 Gross [...] Amor Rodriguez M.D. LB T: Report ID: [id number] Reading Location: [id number] OR Pulmonary Perfusion Imaging EXAM DESCRIPTION: OR PULMONARY PERFUSION IMAGING RADIOPHARMACEUTICAL: 5 mCi Tc-99m [...] signed by Amor MAURER T: Report ID: [id number] Reading Location: [id number] Assessment and Plan Active Problems: Acute diastolic [...] on board. Thank you. Dallas Peña MD [facility] Medical [facility] Nephrology and Hypertension Office: [phone] * Darell Paniagua MD - 04/21/2023 6:00 [...] 49 on room air, [place] [address]. Urinalysis showed UTI. Chest x-ray showed Findings [...] up-to-date with COVID-19 vaccine. She lives in [place], [place]. She does havea cat at home [...] on 4 liter[place] [address], albumin 1.3, fluid balance was-1 L. She [...] movement overnight. Albumin [place] 1.3[place] [address]. 04/19 I saw the patient this morning [...] [place] [address], albumin is 1.3. Her fluid balance was-5400 [...] flush 0.5-20 mL 0.5-20 mL intra-catheter Q8H [facility] Amilcar Hancock MD 10 mL at04/21/23 0559 And sodium chloride 0.9% flush 0.5-20 mL 0.5-20 mL intra-catheter PRN Amilcar Hancock MD And Carrier Fluids for Secondary Infusion - 0.9% Sodium Chloride 30 mL intravenous PRN Amilcar Hancock MD cefTRIAXone (ROCEPHIN) 2,000 mg/20 mL in sterile water (premix) 2,000 mg 2,000 mg intravenous Q24H [facility] Dante Stubbs MD 2,000 mg at 04/20/23 0905 DAPTOmycin [...] injection 7,500 Units 7,500 Units subcutaneous Q8H [facility] Amilcar Hancock MD 7,500 Units at [...] TID Dante Stubbs MD 500 mg at 04/20/232106 ondansetron ODT (ZOFRAN-ODT) disintegrating tablet 4 mg 4 mg oral Q6H PRN Amilcar Hancock MD Or ondansetron (ZOFRAN) injection 4 mg 4 mg intravenous Q6H PRN Amilcar Hancock MD sodium chloride (OCEAN) 0.65 % nasal spray 1 spray 1 spray each nostril Q2H PRN Darell Paniagua MD sodium chloride 0.9% flush 5-10 mL 5-10 mL intra-catheter Q12H [facility] Hien Rabago MD 10 mL at04/20/232106 sodium chloride 0.9% flush 5-20 mL 5-20 [...] Position: Pulse: 86 86 90 91 Resp: 19 18 17 Temp: 36.7 ??C (98.1 ??F) 36.8 ??C [...] signed by Amor MAURER T: Report ID: [id number] Reading Location: [id number] XR Foot Right 3 or More Views [...] signed by Rio PHILLIPS T: Report ID: [id number] Reading Location: [id number] XR Chest 1 Vw Portable Result Date: [...] signed by Rio PHILLIPS T: Report ID: [id number] Reading Location: [place] [address] Assessment and Plan: Assessment Acute hypoxemic respiratory [...] CREATED IN PART WITH THE ASSISTANCE OF [employer] VOICE RECOGNITION SOFTWARE. CLASSROOM PARAPROFESSIONAL VARIANCES MAY OCCUR. For patients or family members viewing this note through iPowerUp: This note was written as a communication [...] Robbi Phan M.D. AG T: Report ID: [id number] Reading Location: [id number] Assessment and Plan Active Problems: Acute diastolic [...] few days. Thank you. Dallas Peña MD [facility] [place] [facility]pertension Office: [phone] * Hien Rabago MD - 04/20/2023 8:10 [...] intra-catheter Q8H Amilcar Vee MD 10 mL at04/20/23 0555 And sodium [...] ERICK Amilcar Hancock MD 7,500 Units at 04/20/23 [...] Dante Stubbs MD 500 mg at 04/19/23 2151 ondansetron ODT (ZOFRAN-ODT) disintegrating tablet 4 mg [...] ERICK Hien Rabago MD 10 mL at04/19/23 2156 sodium chloride 0.9% flush 5-20 mL 5-20 [...] 250 mL 250 mL intravenous Q15 Min PRmAilcar Vaughan MD ergocalciferol (VITAMIN D) capsule 50,000 Units 50,000 Units oral Weekly Golden Kidd MD 50,000 Units at 04/17/23 1437 folic acid (FOLVITE) tablet 1 mg 1 mg oral Daily Hien Rabago MD 1 mg at 04/19/23930 furosemide (LASIX) 10 mg/mL injection 80 mg 80 mg intravenous BID DIURETIC Amilcar Hancock MD 80 mg at 04/19/2331 glucagon injection 1 mg 1 mg intramuscular Q30 Min PRN Amilcar Hancock MD heparin 5,000 unit/mL injection 7,500 Units 7,500 Units subcutaneous Q8H [facility] Amilcar Hancock MD 7,500 Units at 04/19/23 06 HYDROmorphone (DILAUDID) injection 0.5 mg 0.5 mg intravenous Q4H PRN Hien Rabago MD 0.5 mgat 04/18/23 181 insulin glargine (LANTUS, SEMGLEE) 100 unit/mL injection [...] Acute kidney failure (HCC) Elevated troponin Osteomyelitis ([facility]) Wounds, multiple Plan # acute hypoxemic respiratory [...] 1259 Patient Spiritual Assessment Spirituality Assessed Yes Anabaptist Affiliation None Clinical Encounter Type Visited With [...] 0.5-20 mL 0.5-20 mL intra-catheter Q8H [facility] Amilacr Hancock MD 10 mL at04/19/23 0603 And [...] injection 7,500 Units 7,500 Units subcutaneous Q8H [facility] Amilcar Hancock MD 7,500 Units at [...] Problems: Acute diastolic congestive heart failure (CMS/HCC) ([facility]) Type II diabetes mellitus with foot ulcer (HCC) Hypertension Acute respiratory failure with hypoxia (CMS/HCC) (HCC) Diarrhea Acute kidney failure (HCC) Elevated troponin Osteomyelitis ([facility]) Wounds, multiple Plan # acute hypoxemic respiratory [...] Robbi Phan M.D. AG T: Report ID: [id number] Reading Location: [id number] Assessment and Plan Active Problems: Acute diastolic [...] spironolactone accordingly. Thank you. Dallas Peña MD [facility] Nephrology and Hypertension Office: [phone] * Erwin Butcher MD - 04/19/2023 7:56 [...] 49 on room air, [place] [address]. Urinalysis showed UTI. Chest x-ray showed Findings [...] up-to-date with COVID-19 vaccine. She lives in [place], [place]. She does havea cat at home [...] on 4 liter[place] [address], albumin 1.3, fluid balance was-1 L. She [...] movement overnight. Albumin [place] 1.3[place] [address]. 04/19 I saw the patient this morning [...] History: Diagnosis Date CHF (congestive heart failure) ([facility]) (HCC) CKD (chronic kidney disease) Diabetes mellitus (HCC) Hx of AKA (above knee amputation) ([facility]) (HCC) Left Hypertension Surgical History: Past Surgical [...] Amilcar Hancock MD 22 Units at 04/18/23 232 insulin lispro (HumaLOG, ADMELOG) 100 unit/mL injection [...] degrees Pulse: 84 88 91 93 Resp: 18 Temp: 36.5 ??C (97.7 ??F) 36.2 [...] Electronically signed byAmor MAURER T: Report ID: [id number] Reading Location: [id number] XR Foot Right 3 or More Views [...] signed by Rio PHILLIPS T: Report ID: [id number] Reading Location: [id number] XR Chest 1 Vw Portable Result Date: [...] signed by Rio PHILLIPS T: Report ID: [id number] Reading Location: [place] [address] Assessment and Plan: Assessment Acute hypoxemic respiratory [...] CREATED IN PART WITH THE ASSISTANCE OF [employer] VOICE RECOGNITION SOFTWARE. CLASSROOM PARAPROFESSIONAL VARIANCES MAY OCCUR. For patients or family members viewing this note through Qomutyt: This note was written as a communication [...] (HCC) Hx of AKA (above knee amputation) ([facility]) (HCC) Left Hypertension Objective Vitals: 24hr Min/Max: [...] flush 0.5-20 mL 0.5-20 mL intra-catheter Q8H [facility] Amilcar Hancock MD 10 mL at04/18/23 0623 [...] ERICK Amilcar Hancock MD 7,500 Units at 04/18/23 [...] Full Code Discharge disposition: Home * Kerrie Rocha, DIE FINISHER - 04/18/2023 2:19 PM CDT IP Social Work Assessment Social History: Prior to admission the patient lived at home with mother. Home DME: w/c Impressions: AUTO BODY REPAIR TECHNICIAN met with patient at bedside to discuss dc planning. Patient was A&Ox 4, pleasant, and cooperative. Patient will likely benefit from [facility] ([facility]) at d/c. Patient agrees with dc plan. Based on a comprehensive family assessment, assistance with instrumental activities of daily livingafter discharge will be provided by LTAC ([facility]). Pt has the knowledge of available resources and that combining them with their existing resources will suffice and sustain care at discharge. The treatment team is aware of this information. All are in agreement with the aftercare plan. Problem: Patient identified for social work consult due to d/c planning . Leeroy Erik Ramos Canales would benefit from continued therapy services at d/c. Goal: Social work will work with Leeroy Canales and family for discharge planning needs.Social work assess for possible complex discharge concerns. Provide resources and education to help reduce readmission and improve half-way health. Social Work Plan: AUTO BODY REPAIR TECHNICIAN spoke with pt about ferry terminal agent antibiotic needs and options of ltac vs. Home infusion. Pt prefers LTAC. Per [facility], able to accept, will start auth once they have final antibiotic plan and to see if podiatry plans to do debridement. Per [facility], unable to accept, out of network. [facility] stated that they would follow along. Pt stated no preference to [facility] or [facility] location. Additional Information: Primary Care Provider: Cherise Patrick PA Assessment: Social Determinates of Health: Transportation Needs: No Transportation Needs (04/16/2023) PRAPARE - Transportation Lack of Transportation (Medical): No Lack of Transportation (Non-Medical): No Social Connections: Socially Isolated (04/16/2023) Social Connection and Isolation Panel [NHANES] Frequency of Communication with Friends and Family: Never Frequency of Social Gatherings with Friends and Family: Never Attends Anabaptist Services: Never Active Member of Clubs or [...] knee amputation of the left leg at [facility] a few months ago for osteomyelitis. On [...] intra-catheter Q8H Amilcar Vee MD 10 mL at04/18/23 0623 And sodium [...] ERICK Amilcar Hancock MD 7,500 Units at 04/18/23 [...] Q12H [facility] Hien Rabago MD 10 mL at04/17/232127 sodium chloride 0.9% flush 5-20 mL 5-20 [...] with BMI of 49 Dante Stubbs MD [facility] Infectious Disease [place] Office [phone] * Dallas Peña MD - 04/18/2023 8:24 [...] Doppler Lower Extremity Bilateral Amphion Job ID: [id number] Amphion Document ID: [id number] Dictated date/time: [id number] REASON FOR STUDY Gangrene right heel. Triphasic flow in the right common femoral, popliteal, dorsalis pedis and posterior vessels. NORMA is1/1, DP/PT. IMPRESSION Normal indices waveforms in the right lower extremity with no significant distal ischemia. Job ID/Internal Job ID: [id number] XR Chest 1 View EXAM DESCRIPTION: XR [...] 10:48 AM - Electronically signed by Jeremiah Galvez D.O. AP T: Report ID: [id number] Reading Location: [place] [address] Assessment and Plan Active Problems: Acute diastolic [...] pending, previous echo with adequate EF and milddiastolic dysfunction. Obtaining a renal ultrasound as well. [...] and nephrotoxins. Thank you. Dallas Peña MD [facility] [place] Nephrology and Hypertension Office: [phone] * Darell Paniagua MD - 04/18/2023 6:10 [...] 49 on room air, [place] [address]. Urinalysis showed UTI. Chest x-ray showed Findings [...] up-to-date with COVID-19 vaccine. She lives in [place], [place]. She does have a cat at [...] on 4 liter/[place]. [place] [address], albumin 1.3, fluid balance was-1 L. She [...] movement overnight. Albumin is 1.3, [place] [address]. Past Medical History: Past Medical History: Diagnosis [...] Q8H ERICK Amilcar Hancock MD 10 mL at04/17/232128 And sodium chloride 0.9% flush 0.5-20 mL [...] injection 7,500 Units 7,500 Units subcutaneous Q8H [facility] Amilcar Hancock MD 7,500 Units at 04/17/232126 [...] Q12H ERICK Hien Rabago MD 10 mL at04/17/232127 sodium chloride 0.9% flush 5-20 mL 5-20 [...] signed by Amor MAURER T: Report ID: [id number] Reading Location: [id number] XR Foot Right 3 or More Views [...] signed by Rio PHILLIPS T: Report ID: [id number] Reading Location: [id number] XR Chest 1 Vw Portable Result Date: [...] Rio Smith M.D. KR T: Report ID: [id number] Reading Location: [id number] Assessment and Plan: Assessment Acute hypoxemic respiratory [...] CREATED IN PART WITH THE ASSISTANCE OF [employer] VOICE RECOGNITION SOFTWARE. CLASSROOM PARAPROFESSIONAL VARIANCES MAY OCCUR. For patients or family members viewing this note through [email or web address]: This note was written as a communication [...] Rocha MSW - 04/17/2023 3:51 PM CDT AUTO BODY REPAIR TECHNICIAN received consult. Order acknowledged. AUTO BODY REPAIR TECHNICIAN attempted to see pt. Pt asleep. AUTO BODY REPAIR TECHNICIAN informed by ofanticipated ferry terminal agent IV abx. Referrals to be sent to [facility] infusion and [facility]acs [facility]. SS to follow up. VERONIKA Thurman 04/17/2023 [...] Dante Stubbs MD 500 mg at 04/17/23 0917 ondansetron ODT (ZOFRAN-ODT) disintegrating tablet 4 mg 4 mg oral Q6H PRN Amilcar Hancock MD Or ondansetron (ZOFRAN) injection 4 mg 4 mg intravenous Q6H PRN Amilcar Hancock MD sodium chloride (OCEAN) 0.65 % nasal spray 1 spray 1 spray each nostril Q2H PRN Darell Paniagua MD sodium chloride 0.9% flush 5-10 mL 5-10 mL intra-catheter Q12H [facility] Hien Rabago MD sodium chloride 0.9% flush 5-20 mL 5-20 mL intra-catheter PRN Hien Rabago MD thiamine (VITAMIN B-1) tablet 50 mg 50 mg oral Daily Hien Rabago MD 50 mg at 04/17/23 0917 Assessment/Plan Active Problems: Acute diastolic congestive heart failure (CMS/HCC) ([facility]) Type II diabetes mellitus with foot ulcer ([facility]) Hypertension Acute respiratory failure with hypoxia (CMS/HCC) ([facility]) Diarrhea Acute kidney failure ([facility]) Elevated troponin Osteomyelitis ([facility]) Wounds, multiple Plan # acute hypoxemic respiratory [...] knee amputation of the left leg at [facility] a few months ago for osteomyelitis. On [...] 0.5-20 mL 0.5-20 mL intra-catheter Q8H ERICK thiamine (VITAMIN B-1) tablet 50 mg [...] Jed Peters M.D. RB T: Report ID: [id number] Reading Location: [place] [address] Transthoracic Echo (TTE) Complete W Doppler/CF Adult Echocardiogram + + :Name: LEEROY CANALES Study Date: 04/16/2023 Status: B : : Patient Location: [address]^[id number]^MHBHeight: 67 in : : Weight: 318 lbBP: [...] Problems: Acute diastolic congestive heart failure (CMS/HCC) ([facility]) Type II diabetes mellitus with foot ulcer ([facility]) Hypertension Acute respiratory failure with hypoxia (CMS/HCC) ([facility]) Diarrhea Acute kidney failure ([facility]) Elevated troponin Osteomyelitis ([facility]) Wounds, multiple Resolved Problems: No resolved hospital [...] given deficiency. Thank you. Golden Kidd MD [facility] Medical [facility] Nephrology and Hypertension Office: [phone] * Dante Stubbs MD - 04/17/2023 9:19 [...] Amilcar Hancock MD 80 mg at 04/17/23 09 glucagon injection 1 mg 1 mg intramuscular Q30 Min PRN Amilcar Hancock MD heparin 5,000 unit/mL injection 7,500 Units 7,500 Units subcutaneous Q8H Amilcar Vee MD 7,500 Units at 04/17/23 06 insulin glargine (LANTUS, SEMGLEE) 100 unit/mL injection 22 Units 0.15 Units/kg subcutaneous Nightly Amilcar Hancock MD 22 Units at 04/16/23 211 insulin lispro (HumaLOG, ADMELOG) 100 unit/mL injection [...] Dante Stubbs MD 500 mg at 04/17/23 0917 ondansetron ODT (ZOFRAN-ODT) disintegrating tablet 4 mg [...] an outpatient by Ophthalmology. Dante Stubbs MD [facility] Infectious Disease [place] Office [phone] * Darell Paniagua MD - 04/17/2023 5:56 [...] 49 on room air, [place]BC [place] [address]. Urinalysis showed UTI. Chest x-ray showed Findings [...] up-to-date with COVID-19 vaccine. She lives in [place], [place]. She does havea cat at home [...] on 4 liter/[place]. [place] [address], albumin 1.3, fluid balance was-1 L. She [...] Daily Hein Rabago MD 1 mg at 04/16/23 183 [...] TID Dante Stubbs MD 500 mg at 04/16/232111 ondansetron ODT (ZOFRAN-ODT) disintegrating tablet 4 mg 4 mg oral Q6H PRN Amilcar Hancock MD Or ondansetron (ZOFRAN) injection 4 mg 4 mg intravenous Q6H PRN Amilcar Hancock MD sodium chloride (OCEAN) 0.65 % nasal spray 1 spray 1 spray each nostril Q2H PRN Darell Paniagua MD thiamine (VITAMIN B-1) tablet 50 mg 50 mg oral Daily Hien Rabago MD 50 mg at 04/16/231837 Allergies: No Known Allergies Family History: History [...] Electronically signed byAmor MAURER T: Report ID: [id number] Reading Location: [id number] XR Foot Right 3 or More Views [...] signed by Rio PHILLIPS T: Report ID: [id number] Reading Location: [id number] XR Chest 1 Vw Portable Result Date: [...] signed by Rio PHILLIPS T: Report ID: [id number] Reading Location: [place] [address] Assessment and Plan: Assessment Acute hypoxemic respiratory [...] CREATED IN PART WITH THE ASSISTANCE OF [employer] VOICE RECOGNITION SOFTWARE. CLASSROOM PARAPROFESSIONAL VARIANCES MAY OCCUR. For patients or family members viewing this note through [email or web address]: This note was written as a communication [...] Hx of AKA (above knee amputation) (CMS/HCC) ([facility]) Left Hypertension Objective Vitals: 24hr Min/Max: Temp [...] Q8H ERICK Amilcar Hancock MD 10 mL at04/16/23 1414 And sodium chloride 0.9% flush 0.5-20 mL 0.5-20 mL intra-catheter PRN Amilcar Hancock MD And Carrier Fluids for Secondary Infusion - 0.9% Sodium Chloride 30 mL intravenous PRN Amilcar Hancock MD cefTRIAXone (ROCEPHIN) 2,000 mg/20 mL in sterile water (premix) 2,000 mg 2,000 mg intravenous Q24H [facility] Dante Stubbs MD 2,000 mg at 04/16/23 1414 DAPTOmycin [...] injection 7,500 Units 7,500 Units subcutaneous Q8H [facility] Amilcar Hancock MD 7,500 Units at [...] 0.5-20 mL 0.5-20 mL intra-catheter Q8H ERICK CONTINUOUS MEDICATIONS: Current Facility-Administered Medications Medication Dose [...] TRICHUA NM Pulmonary Perfusion Imaging EXAM DESCRIPTION: NM PULMONARY PERFUSION IMAGING RADIOPHARMACEUTICAL: [...] Amor Rodriguez M.D. LB T: Report ID: [id number] Reading Location: [id number] XR Foot Right 3 or More Views [...] signed by Rio PHILLIPS T: Report ID: [id number] Reading Location: [place] [address] XR Chest 1 Vw Portable EXAM DESCRIPTION: [...] signed by Rio PHILLIPS T: Report ID: [id number] Reading Location: [id number] Assessment and Plan Active Problems: Acute diastolic [...] patient declines. Thank you. Dallas Peña MD [facility] Medical Group [facility] Nephrology and Hypertension Office: [phone] * Sultan Sofía Muro MD - 04/16/2023 [...] knee amputation of the left leg at [facility] a few months ago for osteomyelitis. On [...] 49 on room air, [place]BC [place] [address]. Urinalysis showed UTI. Chest x-ray showed Findings [...] up-to-date with COVID-19 vaccine. She lives in [place], [place]. She does havea cat at home [...] Q8H ERICK Amilcar Hancock MD 10 mL at04/15/232143 And sodium chloride 0.9% flush 0.5-20 mL 0.5-20 mL intra-catheter PRN Amilcar Hancock MD And Carrier Fluids for Secondary Infusion - 0.9% Sodium Chloride 30 mL intravenous PRN Amilcar Hancock MD cefepime (MAXIPIME) 1,000 mg in sodium chloride 0.9% 100 mL IVPB 1,000 mg intravenous Q8H ERICK Amilcar Hancock MD 200 mL/hr at 04/15/232143 1,000 mg [...] DIURETIC Amilcar Hancock MD 80 mg at 04/15/231702 glucagon injection 1 mg 1 mg intramuscular Q30 Min PRN Amilcar Hancock MD heparin 5,000 unit/mL injection 7,500 Units 7,500 Units subcutaneous Q8H [facility] Amilcar Hancock MD 7,500 Units at 04/15/232143 insulin glargine [...] 4 mg 4 mg intravenous Q6H PRN Aimlcar Hancock MD sodium chloride (OCEAN) 0.65 % [...] Amor Rodriguez M.D. LB T: Report ID: [id number] Reading Location: [id number] XR Foot Right 3 or More Views [...] signed by Rio PHILLIPS T: Report ID: [id number] Reading Location: [id number] XR Chest 1 Vw Portable Result Date: [...] signed by Rio PHILLIPS T: Report ID: [id number] Reading Location: [id number] Assessment and Plan: Assessment Acute hypoxemic respiratory [...] CREATED IN PART WITH THE ASSISTANCE OF [employer] VOICE RECOGNITION SOFTWARE. CLASSROOM PARAPROFESSIONAL VARIANCES MAY OCCUR. For patients or family members viewing this note through [email or web address]: This note was written as a communication tool between healthcare providers and may contain technical language, terminology and abbreviations that is difficult to interpret without advanced medical training. If you have questions or concerns regarding what is written in this note, please request to speak with the healthcare provider taking care of you or your family member. * Luca Schmitt, [facility] - 04/15/2023 8:30 PM CDT Daptomycin Consult Note Leeroy Canales is a 32 y.o. female patient admitted to [facility] 2 [id number]. Pharmacy service has been consulted for daptomycin [...] Admission:04/15/2023 Primary Care Physician: Cherise Patrick PA [phone] CHIEF COMPLAINT: Patient is a 32 y.o. female with a PMHx significant for type 2 diabetes, hypertension, diastolic dysfunction and left ghkvp-fea-qgox amputation. Presents to the ED with a chief complaint of hypoxemia HPI: Patient being admitted for multiple comorbid medical problems. Patient reports that in December of this year she had a left vtgob-mys-gwkq amputation. Since that time she has been [...] 132/77 Pulse: 79 78 77 78 Resp: 20 20 18 Temp: TempSrc: SpO2: 97% 97% 97% [...] Right lower leg: Edema present. Comments: Left eosis-vyf-qsrt amputation well healed Lymphadenopathy: Cervical: No cervical adenopathy. Skin: General: Skin is warm and dry. Capillary Refill: Capillary refill takes less than 2 seconds. Findings: Erythema present. No rash. Comments: The heel of the right foot has an approximate 4 cm area eschar within an ulceration. The wound is malodorous. There is thick dry skin surrounding the ulceration with erythema and swelling noted. No notable drainage. Nontender on exam. The dorsum of the right foot is edematous and the patient has no palpable pulse however a pulse was dopplered to the lower extremity. There is erythema surrounding the left medial ankle extending into the [...] signed by Amor MAURER T: Report ID: [id number] Reading Location: [id number] XR Foot Right 3 or More Views [...] signed by Rio PHILLIPS T: Report ID: [id number] Reading Location: [id number] XR Chest 1 Vw Portable Result Date: [...] 2:43 PM - Electronically signed by Rio PHILILPS T: Report ID: [id number] Reading Location: [id number] ASSESSMENT/PLAN: Active Problems: Acute diastolic congestive heart [...] of 22. [place] [address]. Chest x-ray confirmed cardiomegaly with pulmonary edema. Patient was given Lasix 60 mgIV. And this will be continued b.i.d. Fortune [...] the patient has had a prior left xmcxb-tll-lqbt amputation. She was placed on vancomycin 2000 [...] PT/OT: ordered Consult to Case Management and/or Fourth Hand Voice recognition software MModal Fluency Direct may have been used to dictate and transcribe this document. Supervisor Backfilling variances may occur. Despite proofreading, typographical errors may occur. TOÑITO Mi 04/15/2023 5:20 PM For patients or family members viewing this note through MyChart: This note was written as a communication [...] failure. Had left below-knee amputation done at [facility] earlier this year Lives at home with her mom On examination: Patient appears comfortable with 2 L nasal cannula. Chest bibasilar crackles. CVS S1-S2 normal no murmurs rubs gallops Extremities: Left BKA. Right foot plantar ulcer at the heel with slough Feeble pulses Edema, 4+ anasarca Labs/imaging: Creatinine 2.7 previous creatinine in February 2023 was 1.3. Albumin is 1.8. White blood cell counts 32. ABG shows PO2 of 49. [...] - 04/24/2023 9:12 AM CDTAssociated Order(s): EGD [facility] GI ENDOSCOPY Patient Name: Leeroy Canales Procedure Date: 04/24/2023 9:12 AM Date of : 1990 Admit Type: Inpatient Age: 32 Gender: Female Attending MD: Marilin Garcia M.D. Room: [facility] ENDOSCOPY ROOM [facility] Note Status: Finalized Procedure: Upper GI endoscopy [...] On: 04/24/2023 9:12 AM Recognized by the [place] [employer] for promoting quality in endoscopy * Marilin Garcia MD - 04/24/2023 9:12 AM CDTAssociated Order(s): FLEXIBLE SIGMOIDOSCOPY [facility] GI ENDOSCOPY Patient Name: Leeroy Canales Procedure Date: 04/24/2023 9:12 AM Date of : 1990 Admit Type: Inpatient Age: 32 Gender: Female Attending MD: Marilin Garcia M.D. Room: [facility] ENDOSCOPY ROOM [facility] Note Status: Finalized Procedure: Flexible Sigmoidoscopy Indications: [...] On: 04/24/2023 9:12 AM Recognized by the [place] [employer] for promoting quality in endoscopy documented in this encounter Consult Notes * Renae Navarro LPC - 04/23/2023 4:07 PM CDTAssociated Order(s): CONSULT TO BEHAVIORAL HEALTH HP Is QMHP consult complete? Yes Behavioral Health Intervention Services ([facility]) [facility] Initial Assessment Date: 04/23/23 Assessment Start time: 1628 Assessment End time: 1701 Patient Name: Leeroy Ramos Canales Preferred Name: Leeroy Preferred Pronouns: she/her/hers Date of : 1990 Phone #: [phone] (home) Race: Black Or Orientation: Alert and [...] Referral source: Hien Rabago MD Contact number: [phone] LETHALITY ASSESSMENT Current suicide ideation: Denied Prior [...] History: Diagnosis Date CHF (congestive heart failure) ([facility]) ([facility]) CKD (chronic kidney disease) Diabetes mellitus ([facility]) Hx of AKA (above knee amputation) ([facility]) ([facility]) Left Hypertension Assistive Medical Devices: wheelchair PCP: [...] flush 0.5-20 mL 0.5-20 mL intra-catheter Q8H [facility] Amilcar Hancock MD 10 mL at04/23/23 [...] 50,000 Units 50,000 Units oral Weekly Golden iKdd MD 50,000 Units at 04/17/23 1437 folic acid (FOLVITE) tablet 1 mg 1 mg oral Daily Hien Rabago MD 1 mg at 04/22/23 0916 furosemide (LASIX) 10 mg/mL injection 80 mg 80 mg intravenous Q8H [facility] Golden Kidd MD 80 mg at04/23/23 [...] 50 mg 50 mg oral BID DIURETIC Goldne Kidd MD 50 mg at 04/23/23 1556 thiamine (VITAMIN B-1) tablet 50 mg 50 mg oral Daily Hien Rabago MD 50 mg at 04/22/23 0916 Medication Compliant: Yes Notes: N/A Pharmacy: [facility] PSYCHOSOCIAL: (Describe: life situation, highest level of educations, [employer]aritan affiliation, family history of mental illness/substance abuse, i.e.) Leeroy Canales is a 32 y.o. Black Or female who was born and raised in [place], [place]. Patient's gender assigned at was female and currently identifies as a female. Patient prefers she/her/hers pronouns. Patient currently resides in an apartment. Patient currently resides with mother. Patient has 7 siblings. Patient has no children. Patient completed 11 years of school. Patient is unemployed. Patient states her temple preference is no preference. Patient denies any [...] denies substance use. /DO Willie Noyola and [facility] discussed patient disposition. Based on the clinical [...] no affidavits scanned into the chart. DISPOSITION: [facility] will provide outpatient resources including [facility] and [facility]. RECOMMENDATIONS AND PLAN OF CARE: ~AVS has been completed on patient. ~No further intervention needed from Behavioral Health Services at this time, we will sign off on patient. Please contact [facility] for any further needs. [phone]. CARE PLAN WHILE REMAINING IN THE HOSPITAL [...] etc. as soon as possible ADDITIONAL ASSESSMENTS: Sac Suicide Severity Rating Scale (Recent Screener) Sac Suicide Severity Rating Scale (Recent Screener) 1. [...] Level: Moderate-Low Renae Navarro LPC Behavioral Health [facility] Telehealth Patient? Yes Telehealth Patient? Yes This was a telepsych/telemedicine visit with Leeroy Canales which took place via real-time video connection with [facility]. During the visit, I was located at My residence, and the [facility] in the [facility]. My visit with the patient started at [...] Patient and/or guardian is aware that the [facility] and Hospital Staff will have access to the patient's relevant medical information including psychiatric and/or psychological information, alcohol and/or drug use and mental health records.Patient and/or guardian understands this consent is part of the patient's medical record. * Radha Narvaez RD - 04/23/2023 3:43 PM CDTAssociated Order(s): IP [...] lb) Height: 170.2 cm (5' 7 ) [place] [employer]ate Knowledge Danial Guzman Equation (Overweight or Obese Patients): 1369 Equation Chosen to Use by RD: [place] FlintridgeAggregate KnowledgeSt Guzman Activity Factor: 1.2 Total Energy Needs: 1642.8 kcal Total Energy Needs + Fever Factor: 1642.8 Protein Estimated Protein Needs Type of Weight Used for Estimated Protein : [place] Protein Needs Based on g/k.2 (18% of total kcals) Total Protein Estimated Needs (gm): 73.44 Fluid Estimated Fluid Needs Type of Weight Used for Estimated Fluid Needs: [place] Fluid Needs Based on : 25 ml/kg [...] thiamine Lab Review: 04/23/23: HgbA1c 6.5 (date: 04/16/23), Creatinine 1.30 (H), Calcium 8.3 (L), Alk Phos 241 (H) Past Medical History: Diagnosis Date CHF (congestive heart failure) ([facility]) (HCC) CKD (chronic kidney disease) Diabetes mellitus [...] doctor for referral to outpatient nutritioncounseling. Call [facility] Dietitian's office at [phone] for questions about your diet. Additional resources available from the [place] [employer] can be found at www.diabetes.org/nutrition Nutrition Follow-Up : 04/25/23 (PO/supp intake) Radha Narvaez RD Cosigned by Kavita Eng RD at 04/23/2023 4:43 PM CDT * Marilin Garcia MD - 04/23/2023 12:41 PM CDTAssociated Order(s): IP CONSULT TO GASTROENTEROLOGY GI Consultation Patient's Primary Care Physician: Cherise Patrick PA Name: Leeroy Valencia Richard Canales Age: 32 y.o. Sex: female Reason [...] (HCC) Hx of AKA (above knee amputation) ([facility]) (HCC) Left Hypertension Past Surgical History: Procedure [...] BID, Hien Rabago MD, 50 mg at 04/21/232225 Saline lock IV, , , Once AND [...] (premix) 2,000 mg, 2,000 mg, intravenous, Q24H ERICK, Dante Stubbs MD, 2,000 mg at 04/23/23 [...] injection 80 mg, 80 mg, intravenous, Q8H [facility], Golden Kidd MD, 80 mg at 04/22/23 2042 glucagon injection 1 mg, 1 mg, intramuscular, Q30 Min PRN, Amilcar Hancock MD [Held by Provider] heparin 5,000 unit/mL injection 7,500 Units, 7,500 Units, subcutaneous, Q8H [facility],Amilcar Hancock MD, 7,500 Units at 04/22/23 1520 [...] Dante Stubbs MD, 500 mg at 04/22/23 2043 miconazole 2 % powder, , topical, BID, [...] 30 degrees Pulse: 102 95 76 Resp: 20 18 18 Temp: 37.8 ??C (100.1 ??F) 37.5 [...] of breath x 1 month when laying down.[facility] came in for her wound care and noticed she was hypoxic and sent her to the hospital. Medications and compliance: Patient has no problems paying for her medications and her mom picks them up from the pharmacy. Payor: Payor: [employer] [facility] / Plan: [employer] [facility] / Product Type: MEDICAID RISK [...] contact information and encouraged them to contact Pr Specialist or PCP early with any changes in [...] up after discharge. Patient's preferred phone number: [phone] Tobacco Use: Low Risk (04/16/2023) Patient History [...] History: Diagnosis Date CHF (congestive heart failure) ([facility]) (HCC) CKD (chronic kidney disease) Diabetes mellitus [...] flush 0.5-20 mL 0.5-20 mL intra-catheter Q8H [facility] Amilcar Hancock MD 10 mL at04/15/232143 And sodium chloride 0.9% flush 0.5-20 mL 0.5-20 mL intra-catheter PRN Amilcar Hancock MD And Carrier Fluids for Secondary Infusion - 0.9% Sodium Chloride 30 mL intravenous PRN Amilcar Hancock MD cefepime (MAXIPIME) 1,000 mg in sodium chloride 0.9% 100 mL IVPB 1,000 mg intravenous Q8H [facility] Amilcar Hancock MD 200 mL/hr at 04/16/23637 1,000 mg at 04/16/23637 DAPTOmycin (CUBICIN) 50 mg/mL sodium chloride 0.9% [...] injection 7,500 Units 7,500 Units subcutaneous Q8H [facility] Amilcar Hancock MD 7,500 Units at 04/16/23637 insulin glargine (LANTUS, SEMGLEE) 100 unit/mL injection [...] Q2H PRN Darell Paniagua MD No current [facility]-ordered outpatient medications on file. Anti-infectives (From [...] Urethral Catheter (Active) Site Assessment Clean;Skin intact 04/16/23439 Catheter Status Open to gravity drainage 04/16/23439 Urine Collection Container Drainage bag with urometer 04/16/23439 Securement Method StatLock 04/16/23439 Fortune Necessity Reason Reviewed with Care Team I&O critical for hourly patient management or hemodynamic instability 04/16/23439 Urinary Catheter Reviewed With Care Team/Physician 04/16/23439 Number of days: 0 No Known Allergies [...] segmental of 85[place] [address] Urinalysis with WBC 6-10 RBCs 6-10 nitrite is negative leukocyte Estrace +1. Protein 2+ glucose 1+. ProBNP 78743. Assessment and plan: 1. Right diabetic foot [...] not included. [facility]ULAR [facility] CONSULT NOTE Patient Name/MRN: Leeroy Canales [id number] Treatment Team: Vascular Surgery Attending: Hien Rabago MD Today's Date: 04/16/2023 Admitting Service: Medical Admitting location: [id number] Admit Date: 04/15/2023 Code Status: Full Code [...] recent left above knee amputation done at [facility] in December who was admitted for shortness [...] 2 (two) times a day with meals ProviderRebel MD dulaglutide (TRULICITY) 0.75 mg/0.5 mL pen injector Inject 0.5 mL (0.75 mg total) under the skin every 7 days ProviderRebel MD furosemide (LASIX) 40 mg tablet Take 1 tablet (40 mg total) by mouth daily Rebel Garcia MD loperamide (IMODIUM) 2 mg capsule Take 1 capsule (2 mg total) by mouth 4 (four) times a day as needed for diarrhea 02/21/23 Kranthi Summers, losartan (COZAAR) 25 mg tablet Take 1 tablet (25 mg total) by mouth daily Rebel Garcia MD potassium chloride ER 10 mEq CR tablet Take 2 tablet/capsule (20 mEq total) by mouth daily ProviderRebel MD ROS: Constitutional: No change in appetite. No [...] want any further surgery or an amputation. Given her body habitus and other medical comorbidities I would agree with this as 2 above knee amputationswith minimal rehabilitation would be extremely high risk for further morbidity or mortality. - continue IV antibiotics 2. CHF -Lasix 3. DM -insulin Cipriano Mccoy MD Vascular Surgery This note was generated in part or in whole with voice recognition software. Voice recognition is usually quite accurate but there are grain sampler errors that can and often occur. All attempts weremade to correct these errors. I apologize for any typographical errors that were not detected and corrected. * Sultan Sofía Muro MD - 04/15/2023 5:46 PM CDTAssociated Order(s): IP CONSULT TO CARDIOLOGY Consult Reason for Consult: Congestive heart failure Requesting Provider: Dr. Natalie FAY. Patient is a 32 y.o. female with [...] knee amputation of the left leg at [facility] a few months ago for osteomyelitis. On [...] signed by Amor MAURER T: Report ID: [id number] Reading Location: [id number] XR Foot Right 3 or More Views [...] 2:51 PM - Electronically signed by Rio Smith M.D. KR T: Report ID: [id number] Reading Location: [id number] XR Chest 1 Vw Portable Result Date: [...] Rio Smith M.D. KR T: Report ID: [id number] Reading Location: [place] [address] X-ray of the chest reviewed independently shows [...] 49 on room air, [place] WBC [place] [address]. Urinalysis showed UTI. Chest x-ray showed Findings [...] up-to-date with COVID-19 vaccine. She lives in [place], [place]. She does havea cat at home [...] signed by Rio PHILLIPS T: Report ID: [id number] Reading Location: [id number] XR Chest 1 Vw Portable Result Date: [...] signed by Rio PHILLIPS T: Report ID: [id number] Reading Location: [id number] Assessment and Plan: Assessment Acute hypoxemic respiratory [...] CREATED IN PART WITH THE ASSISTANCE OF [employer] VOICE RECOGNITION SOFTWARE. CLASSROOM PARAPROFESSIONAL VARIANCES MAY OCCUR. For patients or family members viewing this note through [employer]: This note was written as a communication [...] this encounter Nursing Notes * Orquidea Hinds, RN - 04/26/2023 4:01 AM CDT Pt transferred to [facility] rm 630. VSS, report given, pt belongings/home [...] message Late Tray Diet Late Tray Diet Computer Systems Security Analyst Consult: Malnutrition assessment;Supplements Lab Results Component Value [...] concerns please contact the Wound/Ostomy department at: [place] [phone] [place] (Mon/Fri/Fri only) [phone] Johnna Knutson RN * Cherise Delcid RN [...] or any complaints at this time. Per mold maintenance technician I also placed order for beta [...] Yes, patient is receiving insulin Bedtime snack Computer Systems Security Analyst Consult: No data found Support Surfaces: Type of Bed: sizewise Type of Sitting Surface:NA Condition of Bony Prominences: Heels: L [place], R unstageable/ infection Elbows:WNL Coccyx/Buttock:WNL Prevention in [...] concerns please contact the Wound/Ostomy department at [place] [phone] [place] (Mon/Wed/Fri only) [phone] Johnna Knutson RN * Lexus Pizarro RN [...] Yes, patient is receiving insulin Bedtime snack Computer Systems Security Analyst Consult: No data found Lab Results Component Value Date ALBUMIN 1.6 (L) 04/16/2023 Skin/Wound Assessment: 04/16/23 1445 Pressure Ulcer/Pressure Injury 04/15/23 Lower;Right Abdomen Date First Assessed/Time First Assessed: 04/15/23 141 Present on Hospital Admission: Yes Location Orientation: [...] Heel Date First Assessed/Time First Assessed: 04/15/23 141 Present on Hospital Admission: Yes Location Orientation: [...] at this time. ID consult ordered by . Condition of Bony Prominences: Heels: R heel [...] concerns please contact the Wound/Ostomy department at: [place] [phone] [place] (Mon/Fri/Fri only) [phone] Maribell Centeno RN documented in this encounter [...] Noted Acute diastolic congestive heart failure (CMS/HCC) ([facility]) 04/15/2023 Type II diabetes mellitus with foot ulcer ([facility]) 04/15/2023 Hypertension 04/15/2023 Acute respiratory failure with hypoxia (CMS/HCC) ([facility]) 04/15/2023 Diarrhea 04/15/2023 Acute kidney failure (HCC) 04/15/2023 Elevated troponin 04/15/2023 Osteomyelitis (HCC) 04/15/2023 Wounds, multiple 04/15/2023 Past Medical History: Diagnosis Date CHF (congestive heart failure) (CMS/HCC) (HCC) Diabetes mellitus (HCC) Hypertension Past Surgical History: Procedure Laterality Date [...] range By: Sam Chao MD Time: 04/15 1412 Comment: Chest x-ray cardiomegaly pulmonary vascular congestion x-ray right foot soft tissue By: Sam Chao MD Time: 04/15 1438 Comment: sepsis lactate within normal reference range leukocytosis chest x-ray no consolidated pneumonia cardiomegaly with pulmonary vascular congestion elevated BNP suspect congestive heart failure IV fluids to a minimum By: Sam Chao MD Time: 04/15 1439 Comment: Underlying leukocytosis related to wound infection abdominal pannus as well as right heel By: Sam Chao MD Time: 04/15 1517 Comment: Consult to Cardiology hypoxic respiratory insufficiency pulmonary edema elevated BNP elevated D-dimer check CTA secondary issue related to chronic kidney failure osteomyelitis right heel chronic wound 1-1/2 months with leukocytosis admit check V/Q scan sepsis lactate within normal reference range no IV fluids sepsis protocol because of congestive heart failure By: Sam Chao MD Time: 04/15 4491 Comment: Discussed with Dr. Muro-consult with Nephrology will consult with pulmonary By: Sam Chao MD Time: 04/15 5471 Comment: Discussed with neprology dw Pulmonary will see patient By: Sam Chao MD Time: 04/15 1539 Comment: 2nd IV access By: Sam Chao MD Time: 04/15 1618 Comment: Discussed with hospitalist see patient 2 hour troponin elevated delta no chest pain By: Sam Chao MD Time: 04/15 1703 Comment: Low probability for PE nonspecific elevated troponin delta stress reaction acute chronic kidney disease cardiology here see patient admit By: Sam Chao MD Final diagnoses: Shortness of breath Diabetes mellitus with coincident hypertension ([facility]) Respiratory insufficiency - Hypoxic respiratory insufficiency Abdominal pannus - Superficial Erosion cellulitis Heel ulceration, right, with unspecified severity ([facility]) - Rule out osteomyelitis Acute on chronic congestive heart failure, unspecified heart failure type (HCC) Acute renal failure superimposed on chronic kidney disease, unspecified CKD stage, unspecified acute renal failure type ([facility]) Chronic wound infection of abdomen, initial encounter [...] past 1.5moand today was first visit from home health. documented in this encounter Miscellaneous Notes * Plan of Care - Penny Cole RN - 04/25/2023 1:46 PM CDT Called [facility] transfer line [phone], they confirmed patient is on waiting list [...] Bryanna James APRN Palliative Care Nurse Practitioner [phone] Care team -- please use Epic Chat as preferred communication * Plan of Care - Rio Cardoza RN - 04/25/2023 3:49 AM CDT Goals: Problem: [...] present for the conversation: patient and care field marketing team leader(s): PC SW, PC licensed practical nurse, PCS RN Advance Directive: Yes On file: Yes Power of Software Sales Manager Name: Kianna Nunez Relationship: sister Summary of [...] Disease References Kdigo.org. 2020. [online] Available at: <https://kdigo.org/wp-content/uploads//KDIGO_2012_CKD_GL.pdf> [Accessed 22 August 2020]. Braden Posey and Hiren Kim, 2019 ACDIS Pocket Guide. HCPro, a Simplify Compliance Brand, pp.285-289. Kdigo.org. 2020. [online] Available at: <https://kdigo.org/wp-content/uploads//KDIGO_2012_CKD_GL.pdf> [Accessed 22 August 2020]. Use of terms [...] Bed % 100 Wound Image Available in [facility] Pressure Ulcer/Pressure Injury 04/15/23 Proximal;Right;Lateral Thigh [...] Bed % 100 Wound Image Available in [facility] Pressure Ulcer/Pressure Injury 04/15/23 Right Heel [...] Bed % 100 Wound Image Available in [facility] Treatment: Wound RN consult, wound care, [...] from falls Outcome: Progressing * Plan of [place] - Cherise Delcid RN - 04/22/2023 2:27 [...] 4 liters of oxygen. Sinus rhythm on court monitor. Dressings changed yesterday to right thigh, abdomen, [...] to right f oot. Sinus rhythm on court monitor. No acute events this shift. Goals: Avoid [...] injury in home environment 04/20/2023458 by Eunice Ferguson RN Outcome: Progressing 04/20/2023458 by Eunice Ferguson RN Outcome: Progressing Problem: Activity: Goal: Mobility [...] Ferguson RN Outcome: Progressing Goal: Ability to maintain a balanced intake and output will improve 04/20/2023458 by Eunice Ferguson RN Outcome: Progressing 04/20/2023458 by Eunice Ferguson RN Outcome: Progressing Problem: Skin Integrity: Goal: Risk for impaired skin integrity will decrease 04/20/2023458 by Eunice Ferguson RN Outcome: Progressing 04/20/2023458 by Eunice Ferguson RN Outcome: Progressing Goal: Ability to demonstrate warm and dry skin will improve 04/20/2023458 by Eunice Ferguson RN Outcome: Progressing 04/20/2023458 by Eunice Ferguson RN Outcome: Progressing Goal: Circulation will improve to fullest extent possible 04/20/2023458 by Eunice Ferguson, RN Outcome: Progressing [...] HHC and IV infusion. Patient prefers LTAC. AUTO BODY REPAIR TECHNICIAN working on placement. Expected Discharge Date: [...] Patient insurance is out of network with [facility] and . Referral sent to [facility] to manage. Huma/Ana Cristina Mccollum, senior data warehouse developerSoftware Systems Architect, [facility] home care [phone] * Plan of Care - Jyoti Marrero [...] Krause RN - 04/16/2023 12:20 PM CDT CM Initial Assessment Interview Note Information Obtained From: Patient (04/16/23 1217) Admission Source: Emergency Impression: Patient presented to the ED with c/o SOB [id number]. [facility] nurse came out to address patients [...] referral being placed. Patient is current with [facility] for nursing but is unsure which company. [facility] 1st visit was on day of admission to hospital. Patient requesting a private duty caregiver list. Patient also reported sleeping on an air mattress at home and wanted information on how to obtain a hospital bed. Patient will return home at d/c. [facility] will be needed. Patients step-father, Albin, will provide transportation. Primary Source of Transportation: Does the patient need discharge transport arranged?: No (Patients step dad will transport at d/c) (04/16/231216) Health Insurance Coverage: Primary Coverage Payor Plan Insurance Group Employer/Plan Group [facility] [facility]AN [facility] [id number] Payor Plan Address Payor Plan Phone Number Payor Plan Fax Number Effective Dates [address] 11/03/2022 - None Entered [place] [id number] Subscriber Name Subscriber Date Member ID LEEROY CANALES 1990 [id number] Prescription Coverage: yes Pharmacy:[facility] [address] [place] [address] Primary Care Provider: Cherise Patrick PA Prior [...] in home?: No steps inside or outside (04/16/231216) SDOH: Transportation: In the past 12 months, [...] relatives?: Never How often do you attend shinto or temple services?: Never Do you belong to any clubs or organizations such as shinto groups, unions, fraternal or athletic groups, or [...] (04/16/231111) Potential discharge needs include: Home Health: shelter, Occupational therapy, Physical therapy, Other (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 Had left below-knee amputation done at [facility] earlier this year Lives at home [...] get Dopplers. * Significant Event - Eleanor Austin, WATER/WASTEWATER PROJECT ENGINEER - 04/15/2023 2:00 PM CDT 04/15/23 1350 ABG Modified Alf's Test #1 Positive - Collateral flow determined Site #1 Right radial Specimen Status #1 To lab O2 Therapy None (Room air) Patient Tolerance of ABG's Tolerated well Critical results called to JIMMIE Ram [id number] at 1358 Latest Reference Range & Units [...] Description 01/10/2025 10:30 AM CDT Hospital Encounter [facility] Operating [facility] [address] [place] [address] Bita Vega MD [address] [address] 01/10/2025 10:30 AM CDT - 01/10/2025 11:15 AM CDT Surgery [facility] Operating [facility] [address] [place] [address] Bita Vega MD [address] [address] EXTRACTION CATARACT - PHACOEMULSIFICATION AND LENS IMPLANT [...] Glucose, POC 214(H) 70 - 199 mg/dL [facility] Glucose comment 1 Use This Result [facility] Blood 04/25/2023 8:14 PM CDT 04/25/2023 8:14 PM CDT Willie Noyola MD LAB POCT ORDERABLES - DEVICE Final Result Performing Organization Address [facility]/ZIP Co de Phone Number [address] [place] [address] * POCT glucose (04/25/2023 4:02 PM CDT) Glucose, POC 153 70 - 199 mg/dL [facility] Glucose comment 1 Use This Result [facility] Blood 04/25/2023 4:02 PM CDT 04/25/2023 4:02 PM CDT Willie Noyola MD LAB POCT ORDERABLES - DEVICE Final Result Performing Organization Address City/[facility]/ZIP Co de Phone Number [address] [place] [address] * POCT glucose (04/25/2023 10:57 AM CDT) Glucose, POC 170 70 - 199 mg/dL [facility] Glucose comment 1 Use This Result [facility] Blood 04/25/2023 10:5 7 AM CDT 04/25/2023 10:57 AM CDT Willie Noyola MD LAB POCT ORDERABLES - DEVICE Final Result Performing Organization Address [facility]/ZIP Co de Phone Number [facility] [address] [facility] [place] [address] * eGFR (04/25/2023 8:33 AM CDT) [facility] eGFR 62 mL/min/1. 73 m2 [facility] [...] LAB BLOOD ORDERABLES Final Re sult [facility] [address] [facility] Department [place] [address] * eGFR (04/25/2023 8:33 AM CDT) [facility] eGFR 62 mL/min/1. 73 m2 [facility] [...] Paniagua MD LAB BLOOD ORDERABLES Final Result [facility] [address] [facility] Department [place] [address] * (ABNORMAL) Differential, auto (04/25/2023 8:33 AM CDT) Pathologist [facility] Neutrophil abs 14.8(H) 1.7 - 6.5 K/cumm [facility] Imm gran abs 0.2(H) 0.0 - 0.1 K/cumm [facility] Lymphocyte abs 1.6 0.8 - 3.3 K/cumm [facility] Monocyte abs 1.0(H) 0.2 - 0.8 K/cumm [facility] Eosinophil abs 0.4 0.0 - 0.5 K/cumm [facility] Basophil abs 0.0 0.0 - 0.1 K/cumm [facility] Neutrophil pct 82.6 % [facility] Comment: Interpretive Data Percent cell count reference ranges are not reported, since discordance with absolute values may lead to misinterpretation of CBC data. Current Interpretive Data was last revised on 2018. Imm gran pct 0.9 % [facility] Comment: Interpretive Data Percent cell count reference ranges are not reported, since discordance with absolute values may lead to misinterpretation of CBC data. Current Interpretive Data was last revised on 2018. Lymphocyte pct 8.7 % [facility] Comment: Interpretive Data Percent cell count reference ranges are not reported, since discordance with absolute values may lead to misinterpretation of CBC data. Current Interpretive Data was last revised on 2018. Monocyte pct 5.4 % [facility] Comment: Interpretive Data Percent cell count reference ranges are not reported, since discordance with absolute values may lead to misinterpretation of CBC data. Current Interpretive Data was last revised on 2018. Eosinophil pct 2.2 % [facility] Comment: Interpretive Data Percent cell count reference ranges are not reported, since discordance with absolute values may lead to misinterpretation of CBC data. Current Interpretive Data was last revised on 2018. Basophil pct 0.2 % [facility] Comment: Interpretive Data Percent cell count reference ranges are not reported, since discordance with absolute values may lead to misinterpretation of CBC data. Current Interpretive Data was last revised on 2018. Blood 04/25/2023 8:33 AM CDT 04/25/2023 9:29 AM CDT us Willie Noyola MD LAB BLOOD ORDERABLES Final Result [facility] [address] [facility] Department [place] [address] * (ABNORMAL) Pro B-type natriuretic peptide (04/25/2023 8:33 AM CDT) Pathologist [facility] NT-proBNP 15,970(H) <=300 pg/mL [facility] Comment: [...] BLOOD ORDERABLES Final Result Performing Organization Address City/[facility]/ZIP Co de Phone Number [facility] [address] [address] * (ABNORMAL) CBC with auto differential (04/25/2023 8:33 AM CDT) WBC 17.9(H) 3.8 - 9.9 K/cumm [facility] Hgb 8.0(L) 11.9 - 15.5 g/dL [facility] Hct 26.9(L) 35.6 - 45.5 % [facility] Plt 548(H) 150 - 400 K/cumm [facility] MPV 9.3 9.1 - 12.3 fL [facility] RBC 3.10(L) 3.90 - 5.20 M/cumm [facility] MCV 86.8 81.3 - 96.4 fL [facility] MCH 25.8(L) 27.1 - 33.3 pg [facility] MCHC 29.7(L) 32.3 - 35.7 g/dL [facility] RDW CV 17.7(H) 11.1 - 14.9 % [facility] RDW SD 55.6(H) 35.7 - 48.1 fL [facility] NRBC abs 0.03(H) 0.00 - 0.01 K/cumm [facility] Blood 04/25/2023 8:33 AM CDT 04/25/2023 9:29 AM CDT us Willie Noyola MD LAB BLOOD ORDERABLES Final Result [address] [address] * (ABNORMAL) Creatine kinase (CK), total (04/25/2023 8:33 AM CDT) CK 1,085(H) 30 - 200 Units/L [facility] Blood 04/25/2023 8:33 AM CDT 04/25/2023 9:29 AM CDT Dante Stubbs MD LAB BLOOD ORDERABLES Final R esult Performing Organization Address City/[facility]/ZIP Co de Phone Number [address] [place] [address] * Phosphorus (04/25/2023 8:33 AM CDT) [facility] Phosphorus, pl 2.7 2.3 - 4.5 mg/dL [facility] Blood 04/25/2023 8:33 AM CDT 04/25/2023 9:29 AM CDT Hien Rabago MD LAB BLOOD ORDERABLES Final Result Performing Organization Address [facility] Co de Phone Number [address] [place] [address] * Magnesium (04/25/2023 8:33 AM CDT) [facility] Magnesium 1.5 1.4 - 2.5 mg/dL [facility] Blood 04/25/2023 8:33 AM CDT 04/25/2023 9:29 AM CDT Hien Rabago MD LAB BLOOD ORDERABLES Final Result Performing Organization Address City/[facility] Co de Phone Number [address] [place] [address] * (ABNORMAL) Comprehensive metabolic panel (04/25/2023 8:33 AM CDT) [facility] Sodium 142 135 - 145 mmol/L [facility] Potassium, pl 3.3 3.3 - 4.9 mmol/L [facility] Chloride 105 97 - 110 mmol/L [facility] CO2 33(H) 22 - 32 mmol/L [facility] Anion gap 4 2 - 15 mmol/L [facility] BUN 12 6 - 25 mg/dL [facility] Creatinine 1.20(H) 0.60 - 1.10 mg/dL [facility] Glucose 144 70 - 199 mg/dL [facility] Comment: Interpretive Data Fasting glucose >/= [...] 2022. Calcium 8.0(L) 8.5 - 10.3 mg/dL [facility] Bilirubin, total 0.3 0.1 - 1.2 mg/dL [facility] Protein, pl 5.8(L) 6.5 - 8.5 g/dL [facility] Albumin 1.8(L) 3.5 - 5.0 g/dL [facility] Alk phos 250(H) 40 - 130 Units/L [facility] ALT 26 7 - 45 Units/L [facility] AST 50(H) 10 - 45 Units/L [facility] Blood 04/25/2023 8:33 AM CDT 04/25/2023 9:29 AM CDT Amilcar Hancock MD LAB BLOOD ORDERABLES Final Re sult [facility] [address] [facility] Department [place] [address] * (ABNORMAL) Comprehensive metabolic panel (04/25/2023 8:33 AM CDT) Pathologist [facility] Sodium 141 135 - 145 mmol/L [facility] Potassium, pl 3.3 3.3 - 4.9 mmol/L [facility] Chloride 103 97 - 110 mmol/L [facility] CO2 33(H) 22 - 32 mmol/L [facility] Anion gap 5 2 - 15 mmol/L [facility] BUN 12 6 - 25 mg/dL [facility] Creatinine 1.20(H) 0.60 - 1.10 mg/dL [facility] Glucose 144 70 - 199 mg/dL [facility] Comment: Interpretive Data Fasting glucose >/= [...] 2022. Calcium 8.2(L) 8.5 - 10.3 mg/dL [facility] Bilirubin, total 0.4 0.1 - 1.2 mg/dL [facility] Protein, pl 5.9(L) 6.5 - 8.5 g/dL [facility] Albumin 1.8(L) 3.5 - 5.0 g/dL [facility] Alk phos 255(H) 40 - 130 Units/L [facility] ALT 27 7 - 45 Units/L [facility] AST 50(H) 10 - 45 Units/L [facility] Blood 04/25/2023 8:33 AM CDT 04/25/2023 9:29 AM CDT us Darell Paniagua MD LAB BLOOD ORDERABLES Final Result Performing Organization Address City/[facility]/ZIP Co de Phone Number [facility] [address] [facility] Department [place] [address] * POCT glucose (04/25/2023 7:24 AM CDT) [facility] Glucose, POC 157 70 - 199 mg/dL [facility] Glucose comment 1 Use This Result [facility] Blood 04/25/2023 7:24 AM CDT 04/25/2023 7:24 AM CDT us Willie Noyola MD LAB POCT ORDERABLES - DEVICE Final Result Performing Organization Address City/[facility] Co de Phone Number [facility] [address] [facility] Department [place] [address] * (ABNORMAL) Differential, auto (04/24/2023 8:35 PM CDT) Neutrophil abs 14.5(H) 1.7 - 6.5 K/cumm [facility] Imm gran abs 0.1 0.0 - 0.1 K/cumm [facility] Lymphocyte abs 1.3 0.8 - 3.3 K/cumm [facility] Monocyte abs 0.9(H) 0.2 - 0.8 K/cumm [facility] Eosinophil abs 0.4 0.0 - 0.5 K/cumm [facility] Basophil abs 0.0 0.0 - 0.1 K/cumm [facility] Neutrophil pct 84.2 % [facility] Comment: Interpretive Data Percent cell count reference ranges are not reported, since discordance with absolute values may lead to misinterpretation of CBC data. Current Interpretive Data was last revised on 2018. Imm gran pct 0.8 % [facility] Comment: Interpretive Data Percent cell count reference ranges are not reported, since discordance with absolute values may lead to misinterpretation of CBC data. Current Interpretive Data was last revised on 2018. Lymphocyte pct 7.3 % [facility] Comment: Interpretive Data Percent cell count reference ranges are not reported, since discordance with absolute values may lead to misinterpretation of CBC data. Current Interpretive Data was last revised on 2018. Monocyte pct 5.0 % [facility] Comment: Interpretive Data Percent cell count reference ranges are not reported, since discordance with absolute values may lead to misinterpretation of CBC data. Current Interpretive Data was last revised on 2018. Eosinophil pct 2.5 % [facility] Comment: Interpretive Data Percent cell count reference ranges are not reported, since discordance with absolute values may lead to misinterpretation of CBC data. Current Interpretive Data was last revised on 2018. Basophil pct 0.2 % [facility] Comment: Interpretive Data Percent cell count reference ranges are not reported, since discordance with absolute values may lead to misinterpretation of CBC data. Current Interpretive Data was last revised on 2018. Blood 04/24/2023 8:35 PM CDT 04/24/2023 8:38 PM CDT Willie Noyola MD LAB BLOOD ORDERABLES Final Result Performing Organization Address City/[facility] Co de Phone Number [facility] [address] [address] * (ABNORMAL) CBC with auto differential (04/24/2023 8:35 PM CDT) [facility] WBC 17.2(H) 3.8 - 9.9 K/cumm [facility] Hgb 8.3(L) 11.9 - 15.5 g/dL [facility] Hct 27.7(L) 35.6 - 45.5 % [facility] Plt 523(H) 150 - 400 K/cumm [facility] MPV 9.1 9.1 - 12.3 fL [facility] RBC 3.14(L) 3.90 - 5.20 M/cumm [facility] MCV 88.2 81.3 - 96.4 fL [facility] MCH 26.4(L) 27.1 - 33.3 pg [facility] MCHC 30.0(L) 32.3 - 35.7 g/dL [facility] RDW CV 17.2(H) 11.1 - 14.9 % [facility] RDW SD 54.1(H) 35.7 - 48.1 fL [facility] NRBC abs 0.02(H) 0.00 - 0.01 K/cumm [facility] Blood 04/24/2023 8:35 PM CDT 04/24/2023 8:38 PM CDT Willie Noyola MD LAB BLOOD ORDERABLES Final Result [facility] [address] [place] [address] * (ABNORMAL) POCT glucose (04/24/2023 8:03 PM CDT) Pathologist [facility] Glucose, POC 204(H) 70 - 199 mg/dL [facility] Blood 04/24/2023 8:03 PM CDT 04/24/2023 8:03 PM CDT Willie Noyola MD LAB POCT ORDERABLES - DEVICE Final Result Performing Organization Address [facility] de Phone Number [address] [place] [address] * POCT glucose (04/24/2023 4:13 PM CDT) Glucose, POC 163 70 - 199 mg/dL [facility] Glucose comment 1 Use This Result [facility] Blood 04/24/2023 4:13 PM CDT 04/24/2023 4:13 PM CDT Willie Noyola MD LAB POCT ORDERABLES - DEVICE Final Result Performing Organization Address [facility] de Phone Number [address] [place] [address] * POCT glucose (04/24/2023 11:30 AM CDT) Glucose, POC 119 70 - 199 mg/dL [facility] Glucose comment 1 Use This Result [facility] Blood 04/24/2023 11:3 0 AM CDT 04/24/2023 11:30 AM CDT Willie Noyola MD LAB POCT ORDERABLES - DEVICE Final Result Performing Organization Address [facility] de Phone Number [address] [place] [address] * Surgical pathology (04/24/2023 10:00 AM CDT) Tissue (Colon, Biopsy) 04/24/2023 10:14 AM CDT Comment:Cold bx forcep Narrative [facility] - 04/25/2023 5:30 PM CDT [facility] Department of Pathology [address] [place] [id number] ?? Note to Patients: ??This report may [...] 32) Gender: ??F Address: ??[address] [place] [place] [address] [facility] #: [id number] Service: Medical Location: Patient Type: [facility] INPATIENT ? Taken: 04/24/2023 Received: 04/24/2023 Accessioned: [...] ??Entirely submitted. ?? Labeled A1. Jar 0. komhb/04/24/2023 14:51 Nathalie Daniels Microscopic slide review and interpretation for this case was performed at [facility], Department of Surgical Pathology, [address] [facility] [place], [place] [id number], ??[place], [place] ??[address] ?? CLIA # [id number] us Marilin Garcia MD LAB PATHOLO GY ORDERABLES Final Result [facility] * EGD (04/24/2023 9:12 AM CDT) Anatomical Region Laterality Modality Other Narrative Procedure Note Marilin Garcia MD - 04/24/2023 9:12 AM CDT [facility] GI ENDOSCOPY Patient Name: Leeroy Canales Procedure Date: 04/24/2023 9:12 AM Date of : 1990 Admit Type: Inpatient Age: 32 Gender: Female Attending MD: Marilin Savage M.D. Room: [facility] ENDOSCOPY ROOM [facility] Note Status: Finalized Procedure: Upper GI endoscopy [...] On: 04/24/2023 9:12 AM Recognized by the [employer] for promoting quality in endoscopy us Marilin Garcia MD ENDOSCOPY P ROCEDURES Final Result * FLEXIBLE SIGMOIDOSCOPY (04/24/2023 9:12 AM CDT) Anatomical Region Laterality Modality Other Narrative Procedure Note Marilin Garcia MD - 04/24/2023 9:12 AM CDT [facility] GI ENDOSCOPY Patient Name: Leeroy Canales Procedure Date: 04/24/2023 9:12 AM Date of : 1990 Admit Type: Inpatient Age: 32 Gender: Female Attending MD: Marilin Savage M.D. Room: [facility] ENDOSCOPY ROOM [facility] Note Status: Finalized Procedure: Flexible Sigmoidoscopy Indications: [...] days. - Begin stool softeners, Colace capsule(s) [id number] mg BID. - Await pathology results. Marilin Garcia M.D. Marilin Garcia M.D. 04/24/2023 10:29:57 AM . Number of Addenda: 0 Note Initiated On: 04/24/2023 9:12 AM Recognized by the [employer] for promoting quality in endoscopy Marilin Garcia MD ENDOSCOPY P ROCEDURES Final Result * (ABNORMAL) Differential, auto (04/24/2023 7:58 AM CDT) Neutrophil abs 13.5(H) 1.7 - 6.5 K/cumm [facility] Imm gran abs 0.2(H) 0.0 - 0.1 K/cumm [facility] Lymphocyte abs 1.4 0.8 - 3.3 K/cumm [facility] Monocyte abs 1.1(H) 0.2 - 0.8 K/cumm [facility] Eosinophil abs 0.4 0.0 - 0.5 K/cumm [facility] Basophil abs 0.1 0.0 - 0.1 K/cumm [facility] Neutrophil pct 81.3 % [facility] Comment: Interpretive Data Percent cell count reference ranges are not reported, since discordance with absolute values may lead to misinterpretation of CBC data. Current Interpretive Data was last revised on 2018. Imm gran pct 0.9 % [facility] Comment: Interpretive Data Percent cell count reference ranges are not reported, since discordance with absolute values may lead to misinterpretation of CBC data. Current Interpretive Data was last revised on 2018. Lymphocyte pct 8.4 % [facility] Comment: Interpretive Data Percent cell count reference ranges are not reported, since discordance with absolute values may lead to misinterpretation of CBC data. Current Interpretive Data was last revised on 2018. Monocyte pct 6.9 % [facility] Comment: Interpretive Data Percent cell count reference ranges are not reported, since discordance with absolute values may lead to misinterpretation of CBC data. Current Interpretive Data was last revised on 2018. Eosinophil pct 2.2 % [facility] Comment: Interpretive Data Percent cell count reference ranges are not reported, since discordance with absolute values may lead to misinterpretation of CBC data. Current Interpretive Data was last revised on 2018. Basophil pct 0.3 % [facility] Comment: Interpretive Data Percent cell count reference ranges are not reported, since discordance with absolute values may lead to misinterpretation of CBC data. Current Interpretive Data was last revised on 2018. Blood 04/24/2023 7:58 AM CDT 04/24/2023 8:06 AM CDT us Willie Noyola MD LAB BLOOD ORDERABLES Final Result [facility] [address] [facility] Department of Laboratories [place], [place] [id number] * (ABNORMAL) CBC with auto differential (04/24/2023 7:58 AM CDT) WBC 16.6(H) 3.8 - 9.9 K/cumm [facility] Hgb 7.9(L) 11.9 - 15.5 g/dL [facility] Hct 26.7(L) 35.6 - 45.5 % [facility] Plt 500(H) 150 - 400 K/cumm [facility] MPV 8.9(L) 9.1 - 12.3 fL [facility] RBC 3.04(L) 3.90 - 5.20 M/cumm [facility] MCV 87.8 81.3 - 96.4 fL [facility] MCH 26.0(L) 27.1 - 33.3 pg [facility] MCHC 29.6(L) 32.3 - 35.7 g/dL [facility] RDW CV 17.2(H) 11.1 - 14.9 % [facility] RDW SD 54.9(H) 35.7 - 48.1 fL [facility] NRBC abs 0.03(H) 0.00 - 0.01 K/cumm [facility] Blood 04/24/2023 7:58 AM CDT 04/24/2023 8:06 AM CDT Willie Noyola MD LAB BLOOD ORDERABLES Final Result Performing Organization Address [facility] Co de Phone Number [place] [phone] [facility] [place] [address] * POCT glucose (04/24/2023 7:39 AM CDT) [facility] Glucose, POC 135 70 - 199 mg/dL [facility] Glucose comment 1 Use This Result [facility] Blood 04/24/2023 7:39 AM CDT 04/24/2023 7:39 AM CDT Willie Noyola MD LAB POCT ORDERABLES - DEVICE Final Result Performing Organization Address City/[facility] Co de Phone Number [address] [place] [address] * eGFR (04/24/2023 6:20 AM CDT) [facility] eGFR 62 mL/min/1. 73 m2 [facility] Comment: Interpretive Data Reference Interval Normal [...] ORDERABLES Final Re sult Performing Organization Address [facility] Co de Phone Number [place] [phone] [facility] [place] [address] * Phosphorus (04/24/2023 6:20 AM CDT) Phosphorus, pl 2.9 2.3 - 4.5 mg/dL [facility] Blood 04/24/2023 6:20 AM CDT 04/24/2023 6:42 AM CDT Hien Rabago MD LAB BLOOD ORDERABLES Final Result Performing Organization Address [facility] Co de Phone Number [place] [phone] [facility] [place] [address] * Magnesium (04/24/2023 6:20 AM CDT) Pathologist [facility] Magnesium 1.5 1.4 - 2.5 mg/dL [facility] Blood 04/24/2023 6:20 AM CDT 04/24/2023 6:42 AM CDT Hien Rabago MD LAB BLOOD ORDERABLES Final Result [facility] [address] [facility] Department [place] [address] * (ABNORMAL) Comprehensive metabolic panel (04/24/2023 6:20 AM CDT) [facility] Sodium 143 135 - 145 mmol/L [facility] Potassium, pl 3.3 3.3 - 4.9 mmol/L [facility] Chloride 105 97 - 110 mmol/L [facility] CO2 31 22 - 32 mmol/L [facility] Anion gap 7 2 - 15 mmol/L [facility] BUN 14 6 - 25 mg/dL [facility] Creatinine 1.20(H) 0.60 - 1.10 mg/dL [facility] Glucose 126 70 - 199 mg/dL [facility] Comment: Interpretive Data Fasting glucose >/= [...] 2022. Calcium 8.3(L) 8.5 - 10.3 mg/dL [facility] Bilirubin, total 0.4 0.1 - 1.2 mg/dL [facility] Protein, pl 5.7(L) 6.5 - 8.5 g/dL [facility] Albumin 2.1(L) 3.5 - 5.0 g/dL [facility] Alk phos 233(H) 40 - 130 Units/L [facility] ALT 14 7 - 45 Units/L [facility] AST 22 10 - 45 Units/L [facility] Blood 04/24/2023 6:20 AM CDT 04/24/2023 6:42 AM CDT Amilcar [place] MD LAB BLOOD ORDERABLES Final Re sult [facility] [address] [facility] Department [place] [address] * (ABNORMAL) Differential, auto (04/23/2023 9:44 PM CDT) Neutrophil abs 14.3(H) 1.7 - 6.5 K/cumm [facility] Imm gran abs 0.2(H) 0.0 - 0.1 K/cumm [facility] Lymphocyte abs 1.7 0.8 - 3.3 K/cumm [facility] Monocyte abs 1.1(H) 0.2 - 0.8 K/cumm [facility] Eosinophil abs 0.3 0.0 - 0.5 K/cumm [facility] Basophil abs 0.0 0.0 - 0.1 K/cumm [facility] Neutrophil pct 81.2 % [facility] Comment: Interpretive Data Percent cell count reference ranges are not reported, since discordance with absolute values may lead to misinterpretation of CBC data. Current Interpretive Data was last revised on 2018. Imm gran pct 1.0 % [facility] Comment: Interpretive Data Percent cell count reference ranges are not reported, since discordance with absolute values may lead to misinterpretation of CBC data. Current Interpretive Data was last revised on 2018. Lymphocyte pct 9.7 % [facility] Comment: Interpretive Data Percent cell count reference ranges are not reported, since discordance with absolute values may lead to misinterpretation of CBC data. Current Interpretive Data was last revised on 2018. Monocyte pct 6.0 % [facility] Comment: Interpretive Data Percent cell count reference ranges are not reported, since discordance with absolute values may lead to misinterpretation of CBC data. Current Interpretive Data was last revised on 2018. Eosinophil pct 1.9 % [facility] Comment: Interpretive Data Percent cell count reference ranges are not reported, since discordance with absolute values may lead to misinterpretation of CBC data. Current Interpretive Data was last revised on 2018. Basophil pct 0.2 % [facility] Comment: Interpretive Data Percent cell count reference ranges are not reported, since discordance with absolute values may lead to misinterpretation of CBC data. Current Interpretive Data was last revised on 2018. Blood 04/23/2023 9:44 PM CDT 04/23/2023 10:01 PM CDT us Willie Noyola MD LAB BLOOD ORDERABLES Final Result [place] [phone] [facility] Department [place] [address] * (ABNORMAL) CBC with auto differential (04/23/2023 9:44 PM CDT) WBC 17.6(H) 3.8 - 9.9 K/cumm [facility] Hgb 8.1(L) 11.9 - 15.5 g/dL [facility] Hct 26.2(L) 35.6 - 45.5 % [facility] Plt 490(H) 150 - 400 K/cumm [facility] MPV 9.0(L) 9.1 - 12.3 fL [facility] RBC 3.05(L) 3.90 - 5.20 M/cumm [facility] MCV 85.9 81.3 - 96.4 fL [facility] MCH 26.6(L) 27.1 - 33.3 pg [facility] MCHC 30.9(L) 32.3 - 35.7 g/dL [facility] RDW CV 17.2(H) 11.1 - 14.9 % [facility] RDW SD 53.5(H) 35.7 - 48.1 fL [facility] NRBC abs 0.00 0.00 - 0.01 K/cumm [facility] Blood 04/23/2023 9:44 PM CDT 04/23/2023 10:01 PM CDT Willie Noyola MD LAB BLOOD ORDERABLES Final Result Performing Organization Address City/[facility]/ZIP Co de Phone Number [address] [place] [address] * POCT glucose (04/23/2023 7:09 PM CDT) Glucose, POC 158 70 - 199 mg/dL [facility] Blood 04/23/2023 7:09 PM CDT 04/23/2023 7:09 PM CDT Willie Noyola MD LAB POCT ORDERABLES - DEVICE Final Result Performing Organization Address City/[facility] Co de Phone Number [address] [place] [address] * POCT glucose (04/23/2023 3:48 PM CDT) Glucose, POC 136 70 - 199 mg/dL [facility] Glucose comment 1 Use This Result [facility] Glucose comment 2 RN/MD Notified [facility] Blood 04/23/2023 3:48 PM CDT 04/23/2023 3:48 PM CDT Willie Noyola MD LAB POCT ORDERABLES - DEVICE Final Result Performing Organization Address City/[facility]/ZIP Co de Phone Number [address] [place] [address] * POCT glucose (04/23/2023 12:07 PM CDT) Glucose, POC 131 70 - 199 mg/dL [facility] Glucose comment 1 Use This Result [facility] Glucose comment 2 RN/MD Notified [facility] Blood 04/23/2023 12:0 7 PM CDT 04/23/2023 12:07 PM CDT Willie Noyola MD LAB POCT ORDERABLES - DEVICE Final Result [facility] [address] [facility] Department [place] [address] * (ABNORMAL) Differential, auto (04/23/2023 10:51 AM CDT) Neutrophil abs 13.3(H) 1.7 - 6.5 K/cumm [facility] Imm gran abs 0.2(H) 0.0 - 0.1 K/cumm [facility] Lymphocyte abs 1.9 0.8 - 3.3 K/cumm [facility] Monocyte abs 1.1(H) 0.2 - 0.8 K/cumm [facility] Eosinophil abs 0.3 0.0 - 0.5 K/cumm [facility] Basophil abs 0.1 0.0 - 0.1 K/cumm [facility] Neutrophil pct 78.8 % [facility] Comment: Interpretive Data Percent cell count reference ranges are not reported, since discordance with absolute values may lead to misinterpretation of CBC data. Current Interpretive Data was last revised on 2018. Imm gran pct 0.9 % [facility] Comment: Interpretive Data Percent cell count reference ranges are not reported, since discordance with absolute values may lead to misinterpretation of CBC data. Current Interpretive Data was last revised on 2018. Lymphocyte pct 11.3 % [facility] Comment: Interpretive Data Percent cell count reference ranges are not reported, since discordance with absolute values may lead to misinterpretation of CBC data. Current Interpretive Data was last revised on 2018. Monocyte pct 6.8 % [facility] Comment: Interpretive Data Percent cell count reference ranges are not reported, since discordance with absolute values may lead to misinterpretation of CBC data. Current Interpretive Data was last revised on 2018. Eosinophil pct 1.9 % [facility] Comment: Interpretive Data Percent cell count reference ranges are not reported, since discordance with absolute values may lead to misinterpretation of CBC data. Current Interpretive Data was last revised on 2018. Basophil pct 0.3 % [facility] Comment: Interpretive Data Percent cell count reference ranges are not reported, since discordance with absolute values may lead to misinterpretation of CBC data. Current Interpretive Data was last revised on 2018. Blood 04/23/2023 10:5 1 AM CDT 04/23/2023 11:18 AM CDT Willie Noyola MD LAB BLOOD ORDERABLES Final Result Performing Organization Address [facility] Co de Phone Number [address] [address] * (ABNORMAL) Creatine kinase (CK), total (04/23/2023 10:51 AM CDT) [facility] CK 211(H) 30 - 200 Units/L [facility] Blood 04/23/2023 10:5 1 AM CDT 04/23/2023 11:18 AM CDT Dante Stubbs MD LAB BLOOD ORDERABLES Final R esult Performing Organization Address [facility] de Phone Number [address] [address] * (ABNORMAL) CBC with auto differential (04/23/2023 10:51 AM CDT) [facility] WBC 16.9(H) 3.8 - 9.9 K/cumm [facility] Hgb 7.9(L) 11.9 - 15.5 g/dL [facility] Hct 25.9(L) 35.6 - 45.5 % [facility] Plt 488(H) 150 - 400 K/cumm [facility] MPV 8.8(L) 9.1 - 12.3 fL [facility] RBC 3.02(L) 3.90 - 5.20 M/cumm [facility] MCV 85.8 81.3 - 96.4 fL [facility] MCH 26.2(L) 27.1 - 33.3 pg [facility] MCHC 30.5(L) 32.3 - 35.7 g/dL [facility] RDW CV 17.2(H) 11.1 - 14.9 % [facility] RDW SD 54.2(H) 35.7 - 48.1 fL [facility] NRBC abs 0.00 0.00 - 0.01 K/cumm [facility] Blood 04/23/2023 10:5 1 AM CDT 04/23/2023 11:18 AM CDT Willie Noyola MD LAB BLOOD ORDERABLES Final Result [facility] [address] [facility] Department [place] [address] * eGFR (04/23/2023 9:23 AM CDT) eGFR 57 mL/min/1. 73 m2 [facility] Comment: Interpretive [...] LAB BLOOD ORDERABLES Final Re sult [facility] [address] [facility] Department of Laboratories [place], [place] [id number] * (ABNORMAL) Differential, auto (04/23/2023 9:23 AM CDT) Neutrophil abs 12.8(H) 1.7 - 6.5 K/cumm [facility] Imm gran abs 0.2(H) 0.0 - 0.1 K/cumm [facility] Lymphocyte abs 1.9 0.8 - 3.3 K/cumm [facility] Monocyte abs 1.3(H) 0.2 - 0.8 K/cumm [facility] Eosinophil abs 0.3 0.0 - 0.5 K/cumm [facility] Basophil abs 0.1 0.0 - 0.1 K/cumm [facility] Neutrophil pct 77.8 % [facility] Comment: Interpretive Data Percent cell count reference ranges are not reported, since discordance with absolute values may lead to misinterpretation of CBC data. Current Interpretive Data was last revised on 2018. Imm gran pct 1.0 % [facility] Comment: Interpretive Data Percent cell count reference ranges are not reported, since discordance with absolute values may lead to misinterpretation of CBC data. Current Interpretive Data was last revised on 2018. Lymphocyte pct 11.4 % [facility] Comment: Interpretive Data Percent cell count reference ranges are not reported, since discordance with absolute values may lead to misinterpretation of CBC data. Current Interpretive Data was last revised on 2018. Monocyte pct 7.8 % [facility] Comment: Interpretive Data Percent cell count reference ranges are not reported, since discordance with absolute values may lead to misinterpretation of CBC data. Current Interpretive Data was last revised on 2018. Eosinophil pct 1.7 % [facility] Comment: Interpretive Data Percent cell count reference ranges are not reported, since discordance with absolute values may lead to misinterpretation of CBC data. Current Interpretive Data was last revised on 2018. Basophil pct 0.3 % [facility] Comment: Interpretive Data Percent cell count reference ranges are not reported, since discordance with absolute values may lead to misinterpretation of CBC data. Current Interpretive Data was last revised on 2018. Blood 04/23/2023 9:23 AM CDT 04/23/2023 9:41 AM CDT Willie Noyola MD LAB BLOOD ORDERABLES Final Result Performing Organization Address [facility] Co de Phone Number [facility] [address] [place] [place] [address] * (ABNORMAL) CBC with auto differential (04/23/2023 9:23 AM CDT) WBC 16.5(H) 3.8 - 9.9 K/cumm [facility] Hgb 7.8(L) 11.9 - 15.5 g/dL [facility] Hct 25.4(L) 35.6 - 45.5 % [facility] Plt 461(H) 150 - 400 K/cumm [facility] MPV 8.7(L) 9.1 - 12.3 fL [facility] RBC 2.94(L) 3.90 - 5.20 M/cumm [facility] MCV 86.4 81.3 - 96.4 fL [facility] MCH 26.5(L) 27.1 - 33.3 pg [facility] MCHC 30.7(L) 32.3 - 35.7 g/dL [facility] RDW CV 17.3(H) 11.1 - 14.9 % [facility] RDW SD 54.4(H) 35.7 - 48.1 fL [facility] NRBC abs 0.02(H) 0.00 - 0.01 K/cumm [facility] Blood 04/23/2023 9:23 AM CDT 04/23/2023 9:41 AM CDT Willie Noyola MD LAB BLOOD ORDERABLES Final Result Performing Organization Address [facility]/ZIP Co de Phone Number [facility] [address] [facility] [place] [address] * Phosphorus (04/23/2023 9:23 AM CDT) [facility] [facility] Phosphorus, pl 3.0 2.3 - 4.5 mg/dL [facility] Blood 04/23/2023 9:23 AM CDT 04/23/2023 9:41 AM CDT Hien Rabago MD LAB BLOOD ORDERABLES Final Result Performing Organization Address City/[facility] Co de Phone Number [address] [place] [address] * Magnesium (04/23/2023 9:23 AM CDT) [facility] Magnesium 1.5 1.4 - 2.5 mg/dL [facility] Blood 04/23/2023 9:23 AM CDT 04/23/2023 9:41 AM CDT Hien Rabago MD LAB BLOOD ORDERABLES Final Result Performing Organization Address City/[facility] de Phone Number [address] [place] [address] * (ABNORMAL) Comprehensive metabolic panel (04/23/2023 9:23 AM CDT) [facility] Sodium 143 135 - 145 mmol/L [facility] Potassium, pl 3.3 3.3 - 4.9 mmol/L [facility] Chloride 106 97 - 110 mmol/L [facility] CO2 29 22 - 32 mmol/L [facility] Anion gap 8 2 - 15 mmol/L [facility] BUN 16 6 - 25 mg/dL [facility] Creatinine 1.30(H) 0.60 - 1.10 mg/dL [facility] Glucose 106 70 - 199 mg/dL [facility] Comment: Interpretive Data Fasting glucose >/= [...] 2022. Calcium 8.3(L) 8.5 - 10.3 mg/dL [facility] Bilirubin, total 0.4 0.1 - 1.2 mg/dL [facility] Protein, pl 5.8(L) 6.5 - 8.5 g/dL [facility] Albumin 2.0(L) 3.5 - 5.0 g/dL [facility] Alk phos 241(H) 40 - 130 Units/L [facility] ALT 11 7 - 45 Units/L [facility] AST 13 10 - 45 Units/L [facility] Blood 04/23/2023 9:23 AM CDT 04/23/2023 9:41 AM CDT Amilcar Hancock MD LAB BLOOD ORDERABLES Final Re sult [facility] [address] [facility] [facility] [place] [address] * NM GI Bleed Study (04/23/2023 9:13 [...] - Electronically signed by ??Primo Mccarthy M.D. D: ??04/23/2023 9:42 AM T: Report ID: [id number] Reading Location: ??[id number] Procedure Note Primo Mccarthy MD - 04/23/2023 [...] by Primo Mccarthy M.D. T: Report ID: [id number] Reading Location: [id number] Willie Noyola MD [facility] PROCEDURES Fin al Result * hCG, blood, quantitative (04/22/2023 8:07 PM CDT) hCG, quant 1.5 0.0 - 5.0 IUnits/L [facility] Comment: Interpretive Data Non- Female premenopausal: < [...] Edited Result - Final Performing Organization Address [facility] de Phone Number [address] [employer] [place] [address] * POCT glucose (04/22/2023 7:22 PM CDT) Glucose, POC 123 70 - 199 mg/dL [facility] Glucose comment 1 Use This Result [facility] Glucose comment 2 RN/MD Notified [facility] Blood 04/22/2023 7:22 PM CDT 04/22/2023 7:22 PM CDT Result [facility] Willie Noyola MD LAB POCT ORDERABLES - DEVICE Final Result Performing Organization Address [facility] Co de Phone Number [address] [place] [address] * Guaiac occult blood, fecal, non-neoplasm (04/22/2023 6:00 PM CDT) Guaiac occult blood, fecal Negative Negative [facility] Stool 04/22/2023 6:00 PM CDT 04/22/2023 6:02 PM CDT Willie Noyola MD LAB BODY FLUIDS AND S TOOLS ORDERABLES Final Result Performing Organization Address [facility] Co de Phone Number [facility] [address] [place] [address] * POCT glucose (04/22/2023 3:38 PM CDT) Glucose, POC 87 70 - 199 mg/dL [facility] Glucose comment 1 Use This Result [facility] Glucose comment 2 RN/MD Notified [facility] Blood 04/22/2023 3:38 PM CDT 04/22/2023 3:38 PM CDT Willie Noyola MD LAB POCT ORDERABLES - DEVICE Final Result Performing Organization Address [facility] Co de Phone Number [address]AN[address] [place] [address] * POCT glucose (04/22/2023 1:07 PM CDT) Glucose, POC 87 70 - 199 mg/dL [facility] Blood 04/22/2023 1:07 PM CDT 04/22/2023 1:07 PM CDT Willie Noyola MD LAB POCT ORDERABLES - DEVICE Final Result Performing Organization Address [facility] Co de Phone Number [address] [place] [address] * (ABNORMAL) POCT glucose (04/22/2023 11:47 AM CDT) Glucose, POC 64(L) 70 - 199 mg/dL [facility] Glucose comment 1 Use This Result [facility] Glucose comment 2 RN/MD Notified [facility] Blood 04/22/2023 11:4 7 AM CDT 04/22/2023 11:47 AM CDT Willie Noyola MD LAB POCT ORDERABLES - DEVICE Final Result Performing Organization Address City/[facility]/ZIP Co de Phone Number [address] [place] [address] * POCT glucose (04/22/2023 7:35 AM CDT) [facility] Signature Glucose, POC 70 70 - 199 mg/dL [facility] Glucose comment 1 Use This Result [facility] Glucose comment 2 RN/MD Notified [facility] Blood 04/22/2023 7:35 AM CDT 04/22/2023 7:35 AM CDT us Willie Noyola MD LAB POCT ORDERABLES - DEVICE Final Result [facility] [address] [place] [address] * XR Chest 1 View (04/22/2023 6:37 [...] D: ??04/22/2023 7:48 AM T: Report ID: [id number] Reading Location: ??[id number] Procedure Note Rio Burleson MD - 04/22/2023 [...] signed by Rio SENIOR T: Report ID: [id number] Reading Location: [id number] Darell Paniagua MD IMG XR PROCEDURES Final [...] Heart J. 2006:27:330-337. 2. Heena RW, Reagan AM. J. AM Florina Cardiol: Cardiovasc Imag. 2009;2: 216- 225. Interpretive Data Last Revised Date: 2018. Blood 04/22/2023 6:25 AM CDT 04/22/2023 6:44 AM CDT us Willie Noyola MD LAB BLOOD ORDERABLES Final Result AMANDAJONNIE NILE [address] [facility] Department [place] [address] * eGFR (04/22/2023 6:25 AM CDT) [facility] Signature eGFR 52 mL/min/1. 73 m2 [facility] Comment: Interpretive [...] LAB BLOOD ORDERABLES Final Re sult [facility] [address] [facility] Department [place] [address] * (ABNORMAL) Differential, auto (04/22/2023 6:25 AM CDT) Neutrophil abs 14.0(H) 1.7 - 6.5 K/cumm [facility] Imm gran abs 0.2(H) 0.0 - 0.1 K/cumm [facility] Lymphocyte abs 1.7 0.8 - 3.3 K/cumm [facility] Monocyte abs 1.3(H) 0.2 - 0.8 K/cumm [facility] Eosinophil abs 0.4 0.0 - 0.5 K/cumm [facility] Basophil abs 0.1 0.0 - 0.1 K/cumm [facility] Neutrophil pct 79.2 % [facility] Comment: Interpretive Data Percent cell count reference ranges are not reported, since discordance with absolute values may lead to misinterpretation of CBC data. Current Interpretive Data was last revised on 2018. Imm gran pct 1.1 % [facility] Comment: Interpretive Data Percent cell count reference ranges are not reported, since discordance with absolute values may lead to misinterpretation of CBC data. Current Interpretive Data was last revised on 2018. Lymphocyte pct 9.9 % [facility] Comment: Interpretive Data Percent cell count reference ranges are not reported, since discordance with absolute values may lead to misinterpretation of CBC data. Current Interpretive Data was last revised on 2018. Monocyte pct 7.1 % [facility] Comment: Interpretive Data Percent cell count reference ranges are not reported, since discordance with absolute values may lead to misinterpretation of CBC data. Current Interpretive Data was last revised on 2018. Eosinophil pct 2.3 % [facility] Comment: Interpretive Data Percent cell count reference ranges are not reported, since discordance with absolute values may lead to misinterpretation of CBC data. Current Interpretive Data was last revised on 2018. Basophil pct 0.4 % [facility] Comment: Interpretive Data Percent cell count reference ranges are not reported, since discordance with absolute values may lead to misinterpretation of CBC data. Current Interpretive Data was last revised on 2018. Blood 04/22/2023 6:25 AM CDT 04/22/2023 6:44 AM CDT us Alyson SIBLEY LAB BLOOD ORDERABLES Final Re sult [facility] [address] [facility] Department [place] [address] * Phosphorus (04/22/2023 6:25 AM CDT) Phosphorus, pl 3.2 2.3 - 4.5 mg/dL [facility] Blood 04/22/2023 6:25 AM CDT 04/22/2023 6:44 AM CDT Hien Rabago MD LAB BLOOD ORDERABLES Final Result Performing Organization Address [facility] de Phone Number [address] [address] * Magnesium (04/22/2023 6:25 AM CDT) Pathologist [facility] Magnesium 1.6 1.4 - 2.5 mg/dL [facility] Blood 04/22/2023 6:25 AM CDT 04/22/2023 6:44 AM CDT Hien Rabago MD LAB BLOOD ORDERABLES Final Result Performing Organization Address [facility] Phone Number [address] [address] * (ABNORMAL) CBC with auto differential (04/22/2023 6:25 AM CDT) [facility] WBC 17.6(H) 3.8 - 9.9 K/cumm [facility] Hgb 7.9(L) 11.9 - 15.5 g/dL [facility] Hct 25.8(L) 35.6 - 45.5 % [facility] Plt 516(H) 150 - 400 K/cumm [facility] MPV 8.8(L) 9.1 - 12.3 fL [facility] RBC 2.99(L) 3.90 - 5.20 M/cumm [facility] MCV 86.3 81.3 - 96.4 fL [facility] MCH 26.4(L) 27.1 - 33.3 pg [facility] MCHC 30.6(L) 32.3 - 35.7 g/dL [facility] RDW CV 17.4(H) 11.1 - 14.9 % [facility] RDW SD 55.0(H) 35.7 - 48.1 fL [facility] NRBC abs 0.00 0.00 - 0.01 K/cumm [facility] Blood 04/22/2023 6:25 AM CDT 04/22/2023 6:44 AM CDT Alyosn SIBLEY LAB BLOOD ORDERABLES Final Re sult [facility] [address] [facility] Department [place] [address] * (ABNORMAL) Comprehensive metabolic panel (04/22/2023 6:25 AM CDT) Sodium 144 135 - 145 mmol/L [facility] Potassium, pl 3.5 3.3 - 4.9 mmol/L [facility] Chloride 107 97 - 110 mmol/L [facility] CO2 28 22 - 32 mmol/L [facility] Anion gap 9 2 - 15 mmol/L [facility] BUN 19 8 - 25 mg/dL [facility] Creatinine 1.40(H) 0.60 - 1.10 mg/dL [facility] Glucose 71 70 - 199 mg/dL [facility] Comment: Interpretive Data Fasting glucose >/= [...] 2022. Calcium 8.3(L) 8.5 - 10.3 mg/dL [facility] Bilirubin, total 0.3 0.1 - 1.2 mg/dL [facility] Protein, pl 5.9(L) 6.5 - 8.5 g/dL [facility] Albumin 1.9(L) 3.5 - 5.0 g/dL [facility] Alk phos 243(H) 40 - 130 Units/L [facility] ALT 12 7 - 45 Units/L [facility] AST 12 10 - 45 Units/L [facility] Blood 04/22/2023 6:25 AM CDT 04/22/2023 6:44 AM CDT Amilcar Hancock MD LAB BLOOD ORDERABLES Final Re sult Performing Organization Address City/[facility] Co de Phone Number [address] [place] [address] * (ABNORMAL) CRP (acute phase) (04/22/2023 6:25 AM CDT) CRP 92.6(H) <=10.0 mg/L [facility] Blood 04/22/2023 6:25 AM CDT 04/22/2023 6:44 AM CDT Darell Paniagua MD LAB BLOOD ORDERABLES Final Result Performing Organization Address [facility] Co de Phone Number [address] [address] * POCT glucose (04/21/2023 8:35 PM CDT) Glucose, POC 107 70 - 199 mg/dL [facility] Glucose comment 1 Use This Result [facility] Blood 04/21/2023 8:35 PM CDT 04/21/2023 8:35 PM CDT Hien Rabago MD LAB POCT ORDERABLES - MAX CE Final Result Performing Organization Address City/[facility] Co de Phone Number [address] [address] * POCT glucose (04/21/2023 7:38 PM CDT) Glucose, POC 78 70 - 199 mg/dL [facility] Glucose comment 1 Use This Result [facility] Blood 04/21/2023 7:38 PM CDT 04/21/2023 7:38 PM CDT Hien Rabago MD LAB POCT ORDERABLES - MAX CE Final Result Performing Organization Address [facility] de Phone Number [facility] [address] [facility] [place] [address] * POCT glucose (04/21/2023 3:56 PM CDT) Glucose, POC 86 70 - 199 mg/dL [facility] Glucose comment 1 Use This Result [facility] Glucose comment 2 RN/MD Notified [facility] Blood 04/21/2023 3:56 PM CDT 04/21/2023 3:56 PM CDT Hien Rabago MD LAB POCT ORDERABLES - MAX CE Final Result Performing Organization Address [facility] de Phone Number [facility] [address] [facility] [place] [address] * eGFR (04/21/2023 10:54 AM CDT) eGFR 52 mL/min/1. 73 m2 [facility] Comment: Interpretive Data Reference Interval Normal [...] MD LAB BLOOD ORDERABLES Final Re sult [facility] [address] [facility] Department [place] [address] * (ABNORMAL) Differential, auto (04/21/2023 10:54 AM CDT) Neutrophil abs 17.1(H) 1.7 - 6.5 K/cumm [facility] Imm gran abs 0.3(H) 0.0 - 0.1 K/cumm [facility] Lymphocyte abs 1.7 0.8 - 3.3 K/cumm [facility] Monocyte abs 1.4(H) 0.2 - 0.8 K/cumm [facility] Eosinophil abs 0.4 0.0 - 0.5 K/cumm [facility] Basophil abs 0.1 0.0 - 0.1 K/cumm [facility] Neutrophil pct 81.5 % [facility] Comment: Interpretive Data Percent cell count reference ranges are not reported, since discordance with absolute values may lead to misinterpretation of CBC data. Current Interpretive Data was last revised on 2018. Imm gran pct 1.6 % [facility] Comment: Interpretive Data Percent cell count reference ranges are not reported, since discordance with absolute values may lead to misinterpretation of CBC data. Current Interpretive Data was last revised on 2018. Lymphocyte pct 8.0 % [facility] Comment: Interpretive Data Percent cell count reference ranges are not reported, since discordance with absolute values may lead to misinterpretation of CBC data. Current Interpretive Data was last revised on 2018. Monocyte pct 6.7 % [facility] Comment: Interpretive Data Percent cell count reference ranges are not reported, since discordance with absolute values may lead to misinterpretation of CBC data. Current Interpretive Data was last revised on 2018. Eosinophil pct 2.0 % [facility] Comment: Interpretive Data Percent cell count reference ranges are not reported, since discordance with absolute values may lead to misinterpretation of CBC data. Current Interpretive Data was last revised on 2018. Basophil pct 0.2 % [facility] Comment: Interpretive Data Percent cell count reference ranges are not reported, since discordance with absolute values may lead to misinterpretation of CBC data. Current Interpretive Data was last revised on 2018. Blood 04/21/2023 10:5 4 AM CDT 04/21/2023 11:02 AM CDT us Alyson SIBLEY LAB BLOOD ORDERABLES Final Re sult [facility] [address] [facility] Department of Laboratories [place], [place] [id number] * (ABNORMAL) Pro B-type natriuretic peptide (04/21/2023 10:54 AM CDT) NT-proBNP 10,513(H) <=300 pg/mL [facility] Comment: Interpretive Comments: [...] AM CDT 04/21/2023 11:02 AM CDT Darell Paniagua MD LAB BLOOD ORDERABLES Edited Result - Final Performing Organization Address [facility] de Phone Number [address] [address] * Procalcitonin (04/21/2023 10:54 AM CDT) Procalcitonin 0.39 0.02 - 0.80 ng/mL [facility] Blood 04/21/2023 10:5 4 AM CDT 04/21/2023 11:02 AM CDT Darell Paniagua MD LAB BLOOD ORDERABLES Final Result Performing Organization Address [facility] de Phone Number [place] [id number] [facility] [place] [address] * Phosphorus (04/21/2023 10:54 AM CDT) [facility] Phosphorus, pl 3.2 2.3 - 4.5 mg/dL [facility] Blood 04/21/2023 10:5 4 AM CDT 04/21/2023 11:02 AM CDT Hien Rabago MD LAB BLOOD ORDERABLES Final Result Performing Organization Address City/[facility] Co de Phone Number [address] [employer] [place] [address] * Magnesium (04/21/2023 10:54 AM CDT) [facility] Magnesium 1.8 1.4 - 2.5 mg/dL [facility] Blood 04/21/2023 10:5 4 AM CDT 04/21/2023 11:02 AM CDT Hien Rabago MD LAB BLOOD ORDERABLES Final Result Performing Organization Address City/[facility] de Phone Number [address] [employer] [place] [address] * (ABNORMAL) CBC with auto differential (04/21/2023 10:54 AM CDT) [facility] WBC 21.0(H) 3.8 - 9.9 K/cumm [facility] Hgb 8.5(L) 11.9 - 15.5 g/dL [facility] Hct 27.8(L) 35.6 - 45.5 % [facility] Plt 528(H) 150 - 400 K/cumm [facility] MPV 8.8(L) 9.1 - 12.3 fL [facility] RBC 3.23(L) 3.90 - 5.20 M/cumm [facility] MCV 86.1 81.3 - 96.4 fL [facility] MCH 26.3(L) 27.1 - 33.3 pg [facility] MCHC 30.6(L) 32.3 - 35.7 g/dL [facility] RDW CV 17.2(H) 11.1 - 14.9 % [facility] RDW SD 54.9(H) 35.7 - 48.1 fL [facility] NRBC abs 0.00 0.00 - 0.01 K/cumm [facility] Blood 04/21/2023 10:5 4 AM CDT 04/21/2023 11:02 AM CDT Alyson SIBLEY LAB BLOOD ORDERABLES Final Re sult [facility] [address] [facility] Department [place] [address] * (ABNORMAL) Comprehensive metabolic panel (04/21/2023 10:54 AM CDT) Sodium 141 135 - 145 mmol/L [facility] Potassium, pl 3.6 3.3 - 4.9 mmol/L [facility] Chloride 107 97 - 110 mmol/L [facility] CO2 29 22 - 32 mmol/L [facility] Anion gap 5 2 - 15 mmol/L [facility] BUN 20 8 - 25 mg/dL [facility] Creatinine 1.40(H) 0.60 - 1.10 mg/dL [facility] Glucose 80 70 - 199 mg/dL [facility] Comment: Interpretive Data Fasting glucose >/= [...] 2022. Calcium 8.2(L) 8.5 - 10.3 mg/dL [facility] Bilirubin, total 0.2 0.1 - 1.2 mg/dL [facility] Protein, pl 5.5(L) 6.5 - 8.5 g/dL [facility] Albumin 1.3(L) 3.5 - 5.0 g/dL [facility] Alk phos 288(H) 40 - 130 Units/L [facility] ALT 13 7 - 45 Units/L [facility] AST 11 10 - 45 Units/L [facility] Blood 04/21/2023 10:5 4 AM CDT 04/21/2023 11:02 AM CDT Amilcra Hancock MD LAB BLOOD ORDERABLES Final Re sult Performing Organization Address City/[facility]/ZIP Co de Phone Number [address] [place] [address] * POCT glucose (04/21/2023 10:47 AM CDT) Glucose, POC 77 70 - 199 mg/dL [facility] Glucose comment 1 Use This Result [facility] Glucose comment 2 RN/MD Notified [facility] Blood 04/21/2023 10:4 7 AM CDT 04/21/2023 10:47 AM CDT Hien Rabago MD LAB POCT ORDERABLES - MAX CE Final Result Performing Organization Address [facility] Co de Phone Number [address] [place] [address] * POCT glucose (04/21/2023 7:39 AM CDT) Glucose, POC 78 70 - 199 mg/dL [facility] Glucose comment 1 Use This Result [facility] Glucose comment 2 RN/MD Notified [facility] Blood 04/21/2023 7:39 AM CDT 04/21/2023 7:39 AM CDT Hien Rabago MD LAB POCT ORDERABLES - MAX CE Final Result Performing Organization Address City/[facility] Co de Phone Number [address] [place] [address] * POCT glucose (04/20/2023 7:33 PM CDT) Glucose, POC 70 70 - 199 mg/dL [facility] Glucose comment 1 Use This Result [facility] Blood 04/20/2023 7:33 PM CDT 04/20/2023 7:33 PM CDT Hien Rabago MD LAB POCT ORDERABLES - MAX CE Final Result Performing Organization Address [facility] Co de Phone Number [address] [place] [address] * POCT glucose (04/20/2023 4:08 PM CDT) Glucose, POC 70 70 - 199 mg/dL [facility] Glucose comment 1 Use This Result [facility] Glucose comment 2 RN/MD Notified [facility] Blood 04/20/2023 4:08 PM CDT 04/20/2023 4:08 PM CDT Hien Rabago MD LAB POCT ORDERABLES - MAX CE Final Result Performing Organization Address [facility] de Phone Number [address] [address] * [place] Pulmonary Perfusion Imaging (04/20/2023 2:17 [...] - Electronically signed by ??Amor Rodriguez M.D. LB D: ??04/20/2023 2:18 PM T: Report ID: [id number] Reading Location: ??[id number] Procedure Note Amor Rodriguez MD - 04/20/2023 [...] 2:18 PM - Electronically signed by Amor Rodriguez M.D. LB T: Report ID: [id number] Reading Location: [id number] Hien Rabago MD [facility] [place]ED[place] Final Re sult * XR [...] 2:21 PM - Electronically signed by ??Amor Rodriguez M.D. D: ??04/20/2023 2:21 PM T: Report ID: [id number] Reading Location: ??[id number] Procedure Note Amor Rodriguez MD - 04/20/2023 [...] Amor Rodriguez M.D. LB T: Report ID: [id number] Reading Location: [id number] Hien Rabago MD IMG XR PROCEDURES Final Re sult * POCT glucose (04/20/2023 11:12 AM CDT) Glucose, POC 82 70 - 199 mg/dL [facility] Glucose comment 1 Use This Result [facility] Glucose comment 2 RN/MD Notified [facility] Blood 04/20/2023 11:1 2 AM CDT 04/20/2023 11:12 AM CDT Result [facility] Hien Rabago MD LAB POCT ORDERABLES - MAX CE Final Result Performing Organization Address [facility] Co de Phone Number [address] [employer] [place], [place] [id number] * POCT glucose (04/20/2023 7:27 AM CDT) Glucose, POC 105 70 - 199 mg/dL [facility] Glucose comment 1 Use This Result [facility] Glucose comment 2 RN/MD Notified [facility] Blood 04/20/2023 7:27 AM CDT 04/20/2023 7:27 AM CDT Result [facility] Hien Rabago MD LAB POCT ORDERABLES - MAX CE Final Result Performing Organization Address City/[facility]/ZIP Co de Phone Number [address] [place] [address] * eGFR (04/20/2023 7:08 AM CDT) eGFR [...] 7:08 AM CDT 04/20/2023 7:24 AM CDT us Amilcar Hancock MD LAB BLOOD ORDERABLES Final Re sult [facility] [address] [facility] Department [place] [address] * (ABNORMAL) Differential, auto (04/20/2023 7:08 AM CDT) Neutrophil abs 20.6(H) 1.7 - 6.5 K/cumm [facility] Imm gran abs 0.4(H) 0.0 - 0.1 K/cumm [facility] Lymphocyte abs 1.4 0.8 - 3.3 K/cumm [facility] Monocyte abs 1.8(H) 0.2 - 0.8 K/cumm [facility] Eosinophil abs 0.4 0.0 - 0.5 K/cumm [facility] Basophil abs 0.1 0.0 - 0.1 K/cumm [facility] Neutrophil pct 83.9 % [facility] Comment: Interpretive Data Percent cell count reference ranges are not reported, since discordance with absolute values may lead to misinterpretation of CBC data. Current Interpretive Data was last revised on 2018. Imm gran pct 1.5 % [facility] Comment: Interpretive Data Percent cell count reference ranges are not reported, since discordance with absolute values may lead to misinterpretation of CBC data. Current Interpretive Data was last revised on 2018. Lymphocyte pct 5.9 % [facility] Comment: Interpretive Data Percent cell count reference ranges are not reported, since discordance with absolute values may lead to misinterpretation of CBC data. Current Interpretive Data was last revised on 2018. Monocyte pct 7.1 % [facility] Comment: Interpretive Data Percent cell count reference ranges are not reported, since discordance with absolute values may lead to misinterpretation of CBC data. Current Interpretive Data was last revised on 2018. Eosinophil pct 1.4 % [facility] Comment: Interpretive Data Percent cell count reference ranges are not reported, since discordance with absolute values may lead to misinterpretation of CBC data. Current Interpretive Data was last revised on 2018. Basophil pct 0.2 % [facility] Comment: Interpretive Data Percent cell count reference ranges are not reported, since discordance with absolute values may lead to misinterpretation of CBC data. Current Interpretive Data was last revised on 2018. Blood 04/20/2023 7:08 AM CDT 04/20/2023 7:24 AM CDT us Alyson SIBLEY LAB BLOOD ORDERABLES Final Re sult [facility] [address] [facility] [facility] Department [place] [address] * Phosphorus (04/20/2023 7:08 AM CDT) Phosphorus, pl 3.4 2.3 - 4.5 mg/dL [facility] Blood 04/20/2023 7:08 AM CDT 04/20/2023 7:24 AM CDT Hien Rabago MD LAB BLOOD ORDERABLES Final Result Performing Organization Address [facility] Co de Phone Number [address] [address] * Magnesium (04/20/2023 7:08 AM CDT) [facility] Magnesium 1.8 1.4 - 2.5 mg/dL [facility] Blood 04/20/2023 7:08 AM CDT 04/20/2023 7:24 AM CDT Hien Rabago MD LAB BLOOD ORDERABLES Final Result Performing Organization Address [facility] de Phone Number [address] [address] * (ABNORMAL) CBC with auto differential (04/20/2023 7:08 AM CDT) [facility] WBC 24.6(H) 3.8 - 9.9 K/cumm [facility] Hgb 8.3(L) 11.9 - 15.5 g/dL [facility] Hct 27.5(L) 35.6 - 45.5 % [facility] Plt 538(H) 150 - 400 K/cumm [facility] MPV 9.0(L) 9.1 - 12.3 fL [facility] RBC 3.15(L) 3.90 - 5.20 M/cumm [facility] MCV 87.3 81.3 - 96.4 fL [facility] MCH 26.3(L) 27.1 - 33.3 pg [facility] MCHC 30.2(L) 32.3 - 35.7 g/dL [facility] RDW CV 17.2(H) 11.1 - 14.9 % [facility] RDW SD 54.3(H) 35.7 - 48.1 fL [facility] NRBC abs 0.02(H) 0.00 - 0.01 K/cumm [facility] Blood 04/20/2023 7:08 AM CDT 04/20/2023 7:24 AM CDT Alyson SIBLEY LAB BLOOD ORDERABLES Final Re sult [facility] [address] [facility] Department [place] [address] * (ABNORMAL) Comprehensive metabolic panel (04/20/2023 7:08 AM CDT) Pathologist [facility] Sodium 139 135 - 145 mmol/L [facility] Potassium, pl 3.4 3.3 - 4.9 mmol/L [facility] Chloride 107 97 - 110 mmol/L [facility] CO2 28 22 - 32 mmol/L [facility] Anion gap 4 2 - 15 mmol/L [facility] BUN 26(H) 8 - 25 mg/dL [facility] Creatinine 1.50(H) 0.60 - 1.10 mg/dL [facility] Glucose 89 70 - 199 mg/dL [facility] Comment: Interpretive Data Fasting glucose >/= [...] 2022. Calcium 7.8(L) 8.5 - 10.3 mg/dL [facility] Bilirubin, total 0.3 0.1 - 1.2 mg/dL [facility] Protein, pl 5.2(L) 6.5 - 8.5 g/dL [facility] Albumin 1.3(L) 3.5 - 5.0 g/dL [facility] Alk phos 294(H) 40 - 130 Units/L [facility] ALT 15 7 - 45 Units/L [facility] AST 12 10 - 45 Units/L [facility] Blood 04/20/2023 7:08 AM CDT 04/20/2023 7:24 AM CDT Amilcar Hancock MD LAB BLOOD ORDERABLES Final Re sult Performing Organization Address [facility] Co de Phone Number [address] [place] [address] * POCT glucose (04/19/2023 9:48 PM CDT) Glucose, POC 140 70 - 199 mg/dL [facility] Glucose comment 1 Use This Result [facility] Blood 04/19/2023 9:48 PM CDT 04/19/2023 9:48 PM CDT Hien Rabago MD LAB POCT ORDERABLES - MAX CE Final Result Performing Organization Address [facility] Co de Phone Number [address] [place] [address] * POCT glucose (04/19/2023 4:15 PM CDT) Pathologist [facility] Glucose, POC 111 70 - 199 mg/dL [facility] Glucose comment 1 Use This Result [facility] Glucose comment 2 RN/MD Notified [facility] Blood 04/19/2023 4:15 PM CDT 04/19/2023 4:15 PM CDT Hien Rabago MD LAB POCT ORDERABLES - MAX CE Final Result Performing Organization Address [facility] Co de Phone Number [address] [place] [address] * (ABNORMAL) D-dimer, quantitative (04/19/2023 2:36 PM CDT) Pathologist [facility] D-Dimer 4,470(H) <=499 ng/mL FE[facility] Comment: Interpretive data FDA approved the D-dimer, [...] 68, VTE cut-off 680 ng/ml FEU. References; Schouten HT et al. Brit Med J. 2013;346:f2492. Delfin et al. Annals Int Med. 2015;163:701-11. Current interpretive data was last revised on 2019. Blood 04/19/2023 2:36 PM CDT 04/19/2023 2:42 PM CDT Hien Rabago MD LAB BLOOD ORDERABLES Final Result Performing Organization Address [facility] de Phone Number [address] Department [place] [address] * ECG 12 lead (04/19/2023 2:15 PM CDT) Pathologist [facility] Ventricular Rate EKG/Min 91 BPM [facility] Atrial Rate 91 BPM [facility] ME-Interval (MSEC) 168 ms [facility] QRS-Interval (MSEC) 76 ms [facility] QT-Interval (MSEC) 332 ms [facility] QTc 408 ms [facility] P [place] 47 degrees [facility] R [place] 4 degrees [facility] T [place] 19 degrees [facility] Diagnosis Normal sinus rhythm Low voltage QRS Borderline ECG When compared with ECG of 18-APR-2023 17:02, Questionable change in QRS axis [facility] 04/19/2023 2:15 PM CDT 04/19/2023 11:42 PM CDT Hien Rabago MD ECG ORDERABLES Final Resu lt Performing Organization Address [facility] de Phone Number [facility] * POCT glucose (04/19/2023 11:25 AM CDT) Glucose, POC 71 70 - 199 mg/dL [facility] Glucose comment 1 Use This Result [facility] Glucose comment 2 RN/MD Notified [facility] Blood 04/19/2023 11:2 5 AM CDT 04/19/2023 11:25 AM CDT Result [facility] Hien Rabago MD LAB POCT ORDERABLES - MAX CE Final Result Performing Organization Address [facility] de Phone Number [address] [place] [address] * POCT glucose (04/19/2023 7:49 AM CDT) Glucose, POC 82 70 - 199 mg/dL [facility] Glucose comment 1 Use This Result [facility] Glucose comment 2 RN/MD Notified [facility] Blood 04/19/2023 7:49 AM CDT 04/19/2023 7:49 AM CDT Result [facility] Hien Rabago MD LAB POCT ORDERABLES - MAX CE Final Result Performing Organization Address [facility] de Phone Number [address] [place] [address] * eGFR (04/19/2023 7:44 AM CDT) eGFR 41 mL/min/1. 73 m2 [facility] Comment: Interpretive Data Reference Interval Normal [...] of Race in Diagnosing Kidney Disease, JASN 202). The CKD-EPI equation should not be used for patients with unstable renal function and has not been validated in children and those over 70. Current interpretive data was last reviewed 2021. Blood 04/19/2023 7:4 4 AM CDT 04/19/2023 7:56 AM CDT us Amilcar Hancock MD LAB BLOOD ORDERABLES Final Re sult [facility] [address] [facility] Department [place] [address] * (ABNORMAL) Differential, auto (04/19/2023 7:44 AM CDT) Neutrophil abs 22.5(H) 1.7 - 6.5 K/cumm [facility] Imm gran abs 0.5(H) 0.0 - 0.1 K/cumm [facility] Lymphocyte abs 1.2 0.8 - 3.3 K/cumm [facility] Monocyte abs 1.6(H) 0.2 - 0.8 K/cumm [facility] Eosinophil abs 0.3 0.0 - 0.5 K/cumm [facility] Basophil abs 0.1 0.0 - 0.1 K/cumm [facility] Neutrophil pct 86.1 % [facility] Comment: Interpretive Data Percent cell count reference ranges are not reported, since discordance with absolute values may lead to misinterpretation of CBC data. Current Interpretive Data was last revised on 2018. Imm gran pct 1.7 % [facility] Comment: Interpretive Data Percent cell count reference ranges are not reported, since discordance with absolute values may lead to misinterpretation of CBC data. Current Interpretive Data was last revised on 2018. Lymphocyte pct 4.7 % [facility] Comment: Interpretive Data Percent cell count reference ranges are not reported, since discordance with absolute values may lead to misinterpretation of CBC data. Current Interpretive Data was last revised on 2018. Monocyte pct 6.1 % [facility] Comment: Interpretive Data Percent cell count reference ranges are not reported, since discordance with absolute values may lead to misinterpretation of CBC data. Current Interpretive Data was last revised on 2018. Eosinophil pct 1.2 % [facility] Comment: Interpretive Data Percent cell count reference ranges are not reported, since discordance with absolute values may lead to misinterpretation of CBC data. Current Interpretive Data was last revised on 2018. Basophil pct 0.2 % [facility] Comment: Interpretive Data Percent cell count reference ranges are not reported, since discordance with absolute values may lead to misinterpretation of CBC data. Current Interpretive Data was last revised on 2018. Blood 04/19/2023 7:44 AM CDT 04/19/2023 7:56 AM CDT Alyson SIBLEY LAB BLOOD ORDERABLES Final Re sult Performing Organization Address City/[facility]/ZIP Co de Phone Number [address] [place] [address] * Phosphorus (04/19/2023 7:44 AM CDT) Phosphorus, pl 3.8 2.3 - 4.5 mg/dL [facility] Blood 04/19/2023 7:44 AM CDT 04/19/2023 7:56 AM CDT Hien Rabago MD LAB BLOOD ORDERABLES Final Result Performing Organization Address City/[facility]/ZIP Co de Phone Number [address] [place] [address] * Magnesium (04/19/2023 7:44 AM CDT) Magnesium 2.0 1.4 - 2.5 mg/dL [facility] Blood 04/19/2023 7:44 AM CDT 04/19/2023 7:56 AM CDT Hien Rabago MD LAB BLOOD ORDERABLES Final Result Performing Organization Address [facility] Co de Phone Number [facility] [address] [place] [address] * (ABNORMAL) CBC with auto differential (04/19/2023 7:44 AM CDT) WBC 26.1(H) 3.8 - 9.9 K/cumm [facility] Hgb 9.3(L) 11.9 - 15.5 g/dL [facility] Hct 31.2(L) 35.6 - 45.5 % [facility] Plt 501(H) 150 - 400 K/cumm [facility] MPV 10.0 9.1 - 12.3 fL [facility] RBC 3.52(L) 3.90 - 5.20 M/cumm [facility] MCV 88.6 81.3 - 96.4 fL [facility] MCH 26.4(L) 27.1 - 33.3 pg [facility] MCHC 29.8(L) 32.3 - 35.7 g/dL [facility] RDW CV 17.6(H) 11.1 - 14.9 % [facility] RDW SD 56.8(H) 35.7 - 48.1 fL [facility] NRBC abs 0.03(H) 0.00 - 0.01 K/cumm [facility] Blood 04/19/2023 7:44 AM CDT 04/19/2023 7:56 AM CDT Alyson SIBLEY LAB BLOOD ORDERABLES Final Re sult Performing Organization Address City/[facility]/ZIP Co de Phone Number [address] [address] * (ABNORMAL) Comprehensive metabolic panel (04/19/2023 7:44 AM CDT) Pathologist [facility] Sodium 139 135 - 145 mmol/L [facility] Potassium, pl 3.6 3.3 - 4.9 mmol/L [facility] Chloride 107 97 - 110 mmol/L [facility] CO2 22 22 - 32 mmol/L [facility] Anion gap 10 2 - 15 mmol/L [facility] BUN 29(H) 8 - 25 mg/dL [facility] Creatinine 1.70(H) 0.60 - 1.10 mg/dL [facility] Glucose 77 70 - 199 mg/dL [facility] Comment: Interpretive Data Fasting glucose >/= [...] 2022. Calcium 7.9(L) 8.5 - 10.3 mg/dL [facility] Bilirubin, total 0.4 0.1 - 1.2 mg/dL [facility] Protein, pl 5.4(L) 6.5 - 8.5 g/dL [facility] Albumin 1.3(L) 3.5 - 5.0 g/dL [facility] Alk phos 311(H) 40 - 130 Units/L [facility] ALT 18 7 - 45 Units/L [facility] AST 13 10 - 45 Units/L [facility] Blood 04/19/2023 7:44 AM CDT 04/19/2023 7:56 AM CDT us Amilcar Hanccok MD LAB BLOOD ORDERABLES Final Re sult [facility] [address] [facility] Department [place] [address] * XR Chest 1 View (04/19/2023 5:35 [...] 8:02 AM - Electronically signed by ??Robbi Phan M.D. AG D: ??04/19/2023 8:02 AM T: Report ID: [id number] Reading Location: ??[id number] Procedure Note Robbi Phan MD - 04/19/2023 [...] Robbi Phan M.D. AG T: Report ID: [id number] Reading Location: [id number] Darell Paniagua MD IMG XR PROCEDURES Final Res ult * POCT glucose (04/18/2023 7:31 PM CDT) [facility] Glucose, POC 125 70 - 199 mg/dL [facility] Glucose comment 1 Use This Result [facility] Blood 04/18/2023 7:31 PM CDT 04/18/2023 7:31 PM CDT Result [facility] Hien Rabago MD LAB POCT ORDERABLES - MAX CE Final Result Performing Organization Address City/[facility] Co de Phone Number [facility] [address] [facility] Department [place] [address] * ECG 12 lead (04/18/2023 5:02 PM CDT) [facility] Signature Ventricular Rate EKG/Min 90 BPM [facility] Atrial Rate 90 BPM [facility] ME-Interval (MSEC) 168 ms [facility] QRS-Interval (MSEC) 84 ms [facility] QT-Interval (MSEC) 356 ms [facility] QTc 435 ms [facility] P [place] 77 degrees [facility] R [place] 77 degrees [facility] T [place] 49 degrees [facility] Diagnosis Normal sinus rhythm Low voltage QRS Borderline ECG No previous ECGs available [facility] 04/18/2023 5:02 PM CDT 04/19/2023 5:55 PM CDT Hien Rabago MD ECG ORDERABLES Final Resu lt Performing Organization Address City/[facility]/ZIP Co de Phone Number [facility] * POCT glucose (04/18/2023 4:26 PM CDT) Glucose, POC 99 70 - 199 mg/dL [facility] Glucose comment 1 Use This Result [facility] Blood 04/18/2023 4:26 PM CDT 04/18/2023 4:26 PM CDT Hien Rabago MD LAB POCT ORDERABLES - MAX CE Final Result Performing Organization Address City/[facility] Co de Phone Number [facility] [address] [place] [address] * POCT glucose (04/18/2023 11:29 AM CDT) Glucose, POC 124 70 - 199 mg/dL [facility] Glucose comment 1 Use This Result [facility] Blood 04/18/2023 11:2 9 AM CDT 04/18/2023 11:29 AM CDT Hien Rabago MD LAB POCT ORDERABLES - MAX CE Final Result Performing Organization Address [facility] de Phone Number AMANDA[address] [place] [address] * POCT glucose (04/18/2023 7:18 AM CDT) Glucose, POC 137 70 - 199 mg/dL [facility] Glucose comment 1 Use This Result [facility] Blood 04/18/2023 7:18 AM CDT 04/18/2023 7:18 AM CDT Hien Rabago MD LAB POCT ORDERABLES - MAX CE Final Result Performing Organization Address [facility] Co de Phone Number [address] [place] [address] * eGFR (04/18/2023 6:46 AM CDT) eGFR [...] 6:46 AM CDT 04/18/2023 7:04 AM CDT us Amilcar Hancock MD LAB BLOOD ORDERABLES Final Re sult [facility] [address] [facility] Department [place] [address] * (ABNORMAL) Differential, auto (04/18/2023 6:46 AM CDT) Pathologist [facility] Neutrophil abs 23.2(H) 1.7 - 6.5 K/cumm [facility] Imm gran abs 0.4(H) 0.0 - 0.1 K/cumm [facility] Lymphocyte abs 1.4 0.8 - 3.3 K/cumm [facility] Monocyte abs 1.6(H) 0.2 - 0.8 K/cumm [facility] Eosinophil abs 0.2 0.0 - 0.5 K/cumm [facility] Basophil abs 0.0 0.0 - 0.1 K/cumm [facility] Neutrophil pct 86.2 % [facility] Comment: Interpretive Data Percent cell count reference ranges are not reported, since discordance with absolute values may lead to misinterpretation of CBC data. Current Interpretive Data was last revised on 2018. Imm gran pct 1.5 % [facility] Comment: Interpretive Data Percent cell count reference ranges are not reported, since discordance with absolute values may lead to misinterpretation of CBC data. Current Interpretive Data was last revised on 2018. Lymphocyte pct 5.3 % [facility] Comment: Interpretive Data Percent cell count reference ranges are not reported, since discordance with absolute values may lead to misinterpretation of CBC data. Current Interpretive Data was last revised on 2018. Monocyte pct 6.0 % [facility] Comment: Interpretive Data Percent cell count reference ranges are not reported, since discordance with absolute values may lead to misinterpretation of CBC data. Current Interpretive Data was last revised on 2018. Eosinophil pct 0.9 % [facility] Comment: Interpretive Data Percent cell count reference ranges are not reported, since discordance with absolute values may lead to misinterpretation of CBC data. Current Interpretive Data was last revised on 2018. Basophil pct 0.1 % [facility] Comment: Interpretive Data Percent cell count reference ranges are not reported, since discordance with absolute values may lead to misinterpretation of CBC data. Current Interpretive Data was last revised on 2018. Blood 04/18/2023 6:46 AM CDT 04/18/2023 7:04 AM CDT us Alyson SIBLEY LAB BLOOD ORDERABLES Final Re sult [facility] [address] [facility] Department [place] [address] * Phosphorus (04/18/2023 6:46 AM CDT) Phosphorus, pl 4.3 2.3 - 4.5 mg/dL [facility] Blood 04/18/2023 6:46 AM CDT 04/18/2023 7:04 AM CDT Hien Rabago MD LAB BLOOD ORDERABLES Final Result Performing Organization Address [facility] Co de Phone Number [address] [place] [address] * Magnesium (04/18/2023 6:46 AM CDT) Pathologist [facility] Magnesium 2.3 1.4 - 2.5 mg/dL [facility] Blood 04/18/2023 6:46 AM CDT 04/18/2023 7:04 AM CDT Hien Rabago MD LAB BLOOD ORDERABLES Final Result Performing Organization Address [facility] Co de Phone Number [address] [place] [address] * Creatine kinase (CK), total (04/18/2023 6:46 AM CDT) Pathologist [facility] CK 72 30 - 200 Units/L [facility] Blood 04/18/2023 6:46 AM CDT 04/18/2023 7:04 AM CDT Amilcar Hancock MD LAB BLOOD ORDERABLES Final Re sult Performing Organization Address [facility] Co de Phone Number [address] [place] [address] * (ABNORMAL) CBC with auto differential (04/18/2023 6:46 AM CDT) [facility] WBC 26.9(H) 3.8 - 9.9 K/cumm [facility] Hgb 8.2(L) 11.9 - 15.5 g/dL [facility] Hct 26.1(L) 35.6 - 45.5 % [facility] Plt 572(H) 150 - 400 K/cumm [facility] MPV 9.0(L) 9.1 - 12.3 fL [facility] RBC 3.08(L) 3.90 - 5.20 M/cumm [facility] MCV 84.7 81.3 - 96.4 fL [facility] MCH 26.6(L) 27.1 - 33.3 pg [facility] MCHC 31.4(L) 32.3 - 35.7 g/dL [facility] RDW CV 17.5(H) 11.1 - 14.9 % [facility] RDW SD 54.6(H) 35.7 - 48.1 fL [facility] NRBC abs 0.09(H) 0.00 - 0.01 K/cumm [facility] Blood 04/18/2023 6:46 AM CDT 04/18/2023 7:04 AM CDT us Alyson SIBLEY LAB BLOOD ORDERABLES Final Re sult [place] [id number] [facility] Department [place] [address] * (ABNORMAL) Comprehensive metabolic panel (04/18/2023 6:46 AM CDT) Sodium 140 135 - 145 mmol/L [facility] Potassium, pl 3.7 3.3 - 4.9 mmol/L [facility] Chloride 109 97 - 110 mmol/L [facility] CO2 24 22 - 32 mmol/L [facility] Anion gap 7 2 - 15 mmol/L [facility] BUN 34(H) 8 - 25 mg/dL [facility] Creatinine 1.80(H) 0.60 - 1.10 mg/dL [facility] Glucose 137 70 - 199 mg/dL [facility] Comment: Interpretive Data Fasting glucose >/= [...] 2022. Calcium 7.7(L) 8.5 - 10.3 mg/dL [facility] Bilirubin, total 0.3 0.1 - 1.2 mg/dL [facility] Protein, pl 5.6(L) 6.5 - 8.5 g/dL [facility] Albumin 1.7(L) 3.5 - 5.0 g/dL [facility] Alk phos 347(H) 40 - 130 Units/L [facility] ALT 24 7 - 45 Units/L [facility] AST 18 10 - 45 Units/L [facility] Blood 04/18/2023 6:46 AM CDT 04/18/2023 7:04 AM CDT Amilcar Hancock MD LAB BLOOD ORDERABLES Final Re sult Performing Organization Address [facility] Co de Phone Number [address] [place] [address] * POCT glucose (04/17/2023 7:31 PM CDT) Glucose, POC 123 70 - 199 mg/dL [facility] Glucose comment 1 Use This Result [facility] Blood 04/17/2023 7:31 PM CDT 04/17/2023 7:31 PM CDT Hien Rabago MD LAB POCT ORDERABLES - MAX CE Final Result Performing Organization Address [facility] Co de Phone Number [address] [employer] [address] * (ABNORMAL) Protein / creatinine ratio, urine, random (04/17/2023 4:23 PM CDT) Protein, ur, quant 137.0 mg/dL [facility] Comment: Interpretive Data No reference range established. Current interpretive data was last revised 2019. Creatinine Ur 38.0 mg/dL [facility] Comment: Interpretive Data No reference range established. Current interpretive data was last revised 2019. Protein/creatinin e ratio 3,605.3(H ) 0.0 - 180.0 mg/g CR [facility] Urine 04/17/2023 4:23 PM CDT 04/17/2023 4:31 PM CDT Narrative [facility] - 04/17/2023 5:18 PM CDT Now. Result [facility] Sultan Sofía Muro MD LAB URINE ORDERABLES Final Re [facility] Performing Organization Address [facility] Co de Phone Number [address] [place] [address] * (ABNORMAL) Albumin Creatinine Ratio, Urine (04/17/2023 4:23 PM CDT) Albumin Ur 467.4 mg/L [facility] Comment: Interpretive Data No reference range established. Current interpretive data was last revised 2019. Creatinine Ur 38.0 mg/dL [facility] Comment: Interpretive Data No reference range established. Current interpretive data was last revised 2019. Albumin Creatinine Ratio, Ur 1,230(H) 1 - 29 mg/g [facility] Urine 04/17/2023 4:23 PM CDT 04/17/2023 4:31 PM CDT Result [facility] Golden Kidd MD LAB URINE ORDERABLES Final Re [facility] Performing Organization Address [facility] Co de Phone Number [address] [place] [address] * POCT glucose (04/17/2023 3:39 PM CDT) Glucose, POC 81 70 - 199 mg/dL [facility] Glucose comment 1 Use This Result [facility] Glucose comment 2 RN/MD Notified [facility] Blood 04/17/2023 3:39 PM CDT 04/17/2023 3:39 PM CDT Result [facility] Hien Rabago MD LAB POCT ORDERABLES - MAX CE Final Result [facility] [address] [facility] [place] [address] * (ABNORMAL) Lipid panel (04/17/2023 1:03 PM CDT) [facility] Cholesterol 97 30 - 199 mg/dL [facility] [...] last revised on 2018. Chol/HDL ratio 3 [facility] Blood 04/17/2023 1:03 PM CDT 04/17/2023 1:51 PM CDT Sultan Sofía Muro MD LAB BLOOD ORDERABLES Final Re sult Performing Organization Address City/[facility]/ZIP Co de Phone Number [address] [place] [address] * POCT glucose (04/17/2023 10:35 AM CDT) [facility] Signature Glucose, POC 87 70 - 199 mg/dL [facility] Glucose comment 1 Use This Result [facility] Glucose comment 2 RN/MD Notified [facility] Blood 04/17/2023 10:3 5 AM CDT 04/17/2023 10:35 AM CDT Hien Rabago MD LAB POCT ORDERABLES - MAX CE Final Result Performing Organization Address [facility] Co de Phone Number [address] [place] [address] * XR Chest 1 View (04/17/2023 9:15 [...] 10:48 AM - Electronically signed by ??Jeremiah Galvez D.O. Jeremiah GARCIA D: ??04/17/2023 10:48 AM T: Report ID: [id number] Reading Location: ??[id number] Procedure Note Jeremiah Galvez, DO - 04/17/2023 [...] 10:48 AM - Electronically signed by Jeremiah Galvez D.O. Jeremiah Galvez D.O. AP T: Report ID: [id number] Reading Location: [id number] Darell Paniagua MD IMG XR PROCEDURES Final Res ult * POCT glucose (04/17/2023 7:48 AM CDT) Glucose, POC 101 70 - 199 mg/dL [facility] Glucose comment 1 Use This Result [facility] Blood 04/17/2023 7:48 AM CDT 04/17/2023 7:48 AM CDT us Hien Rabago MD LAB POCT ORDERABLES - MAX CE Final Result Performing Organization Address [facility] Co de Phone Number [facility] [address] [facility] [place] [address] * eGFR (04/17/2023 5:10 AM CDT) eGFR 32 mL/min/1. 73 m2 [facility] Comment: Interpretive Data [...] ORDERABLES Final Re sult Performing Organization Address City/[facility] Co de Phone Number [facility] [address] [facility] [place] [address] * (ABNORMAL) Differential, auto (04/17/2023 5:10 AM CDT) Pathologist [facility] Neutrophil abs 19.0(H) 1.7 - 6.5 K/cumm [facility] Imm gran abs 0.3(H) 0.0 - 0.1 K/cumm [facility] Lymphocyte abs 1.3 0.8 - 3.3 K/cumm [facility] Monocyte abs 1.5(H) 0.2 - 0.8 K/cumm [facility] Eosinophil abs 0.2 0.0 - 0.5 K/cumm [facility] Basophil abs 0.0 0.0 - 0.1 K/cumm [facility] Neutrophil pct 84.9 % [facility] Comment: Interpretive Data Percent cell count reference ranges are not reported, since discordance with absolute values may lead to misinterpretation of CBC data. Current Interpretive Data was last revised on 2018. Imm gran pct 1.5 % [facility] Comment: Interpretive Data Percent cell count reference ranges are not reported, since discordance with absolute values may lead to misinterpretation of CBC data. Current Interpretive Data was last revised on 2018. Lymphocyte pct 5.8 % [facility] Comment: Interpretive Data Percent cell count reference ranges are not reported, since discordance with absolute values may lead to misinterpretation of CBC data. Current Interpretive Data was last revised on 2018. Monocyte pct 6.5 % [facility] Comment: Interpretive Data Percent cell count reference ranges are not reported, since discordance with absolute values may lead to misinterpretation of CBC data. Current Interpretive Data was last revised on 2018. Eosinophil pct 1.1 % [facility] Comment: Interpretive Data Percent cell count reference ranges are not reported, since discordance with absolute values may lead to misinterpretation of CBC data. Current Interpretive Data was last revised on 2018. Basophil pct 0.2 % [facility] Comment: Interpretive Data Percent cell count reference ranges are not reported, since discordance with absolute values may lead to misinterpretation of CBC data. Current Interpretive Data was last revised on 2018. Blood 04/17/2023 5:10 AM CDT 04/17/2023 5:32 AM CDT Alyson SIBLEY LAB BLOOD ORDERABLES Final Re sult Performing Organization Address City/[facility]/ZIP Co de Phone Number [address] [place] [address] * Phosphorus (04/17/2023 5:10 AM CDT) Phosphorus, pl 4.2 2.3 - 4.5 mg/dL [facility] Blood 04/17/2023 5:10 AM CDT 04/17/2023 5:32 AM CDT Hien Rabago MD LAB BLOOD ORDERABLES Final Result Performing Organization Address [facility] Co de Phone Number [address] [place] [address] * Magnesium (04/17/2023 5:10 AM CDT) Pathologist [facility] Magnesium 2.2 1.4 - 2.5 mg/dL [facility] Blood 04/17/2023 5:10 AM CDT 04/17/2023 5:32 AM CDT Hien Rabago MD LAB BLOOD ORDERABLES Final Result Performing Organization Address [facility] Co de Phone Number [address] [place] [address] * (ABNORMAL) Vitamin D 25 hydroxy (04/17/2023 5:10 AM CDT) Vitamin D 25-OH <6.0(L) 30.0 - 80.0 ng/mL [facility] Blood 04/17/2023 5:10 AM CDT 04/17/2023 5:32 AM CDT Hien Rabago MD LAB BLOOD ORDERABLES Final Result Performing Organization Address City/[facility]/ZIP Co de Phone Number [address] [place] [address] * (ABNORMAL) CBC with auto differential (04/17/2023 5:10 AM CDT) [facility] WBC 22.4(H) 3.8 - 9.9 K/cumm [facility] Hgb 8.2(L) 11.9 - 15.5 g/dL [facility] Hct 26.7(L) 35.6 - 45.5 % [facility] Plt 579(H) 150 - 400 K/cumm [facility] MPV 9.2 9.1 - 12.3 fL [facility] RBC 3.13(L) 3.90 - 5.20 M/cumm [facility] MCV 85.3 81.3 - 96.4 fL [facility] MCH 26.2(L) 27.1 - 33.3 pg [facility] MCHC 30.7(L) 32.3 - 35.7 g/dL [facility] RDW CV 17.3(H) 11.1 - 14.9 % [facility] RDW SD 53.8(H) 35.7 - 48.1 fL [facility] NRBC abs 0.21(H) 0.00 - 0.01 K/cumm [facility] Blood 04/17/2023 5:10 AM CDT 04/17/2023 5:32 AM CDT Alyson SIBLEY LAB BLOOD ORDERABLES Final Re sult [address] Department [place] [address] * (ABNORMAL) Comprehensive metabolic panel (04/17/2023 5:10 AM CDT) [facility] Sodium 136 135 - 145 mmol/L [facility] Potassium, pl 3.9 3.3 - 4.9 mmol/L [facility] Chloride 106 97 - 110 mmol/L [facility] CO2 20(L) 22 - 32 mmol/L [facility] Anion gap 10 2 - 15 mmol/L [facility] BUN 35(H) 8 - 25 mg/dL [facility] Creatinine 2.10(H) 0.60 - 1.10 mg/dL [facility] Glucose 99 70 - 199 mg/dL [facility] Comment: Interpretive Data Fasting glucose >/= [...] 2022. Calcium 7.8(L) 8.5 - 10.3 mg/dL [facility] Bilirubin, total 0.3 0.1 - 1.2 mg/dL [facility] Protein, pl 5.5(L) 6.5 - 8.5 g/dL [facility] Albumin 1.3(L) 3.5 - 5.0 g/dL [facility] Alk phos 334(H) 40 - 130 Units/L [facility] ALT 32 7 - 45 Units/L [facility] AST 29 10 - 45 Units/L [facility] Blood 04/17/2023 5:10 AM CDT 04/17/2023 5:32 AM CDT us Amilcar Hancock MD LAB BLOOD ORDERABLES Final Re sult [facility] [address] [facility] Department [place] [address] * Stool culture Stool Rectum (04/16/2023 10:51 PM CDT) Direct Specimen Exam Shiga Toxin Testing: Antigen detection assay for Shiga-toxin NEGATIVE for Shiga Toxin 1 and Shiga Toxin 2. [facility] Comment:Testing performed by : [facility], [address] [place] [address], [place] [address] Report Final Report: No growth of enteric bacterial pathogens [facility] Comment:Testing performed by : [facility], [address] [place]., [address] Stool (Rectum) 04/16/2023 10 :51 PM CDT 04/17/2023 5:37 AM CDT Narrative [facility] - 04/21/2023 10:08 AM CDT Testing performed by [facility] Microbiology Laboratory ([phone]). Routine stool cultures include procedures to detect Salmonella, Shigella, Edwardsiella, Aeromonas, Pleisiomonas, Campylobacter, Yersinia, E. coli O157, and Shiga-like toxins. ?? Vibrio is cultured only upon special request. ??If Vibrio is suspected, please call the laboratory at [phone]. Interpretive data was last updated March 10, 2017. Amilcar Hancock MD LAB MICROBIOLOGY - GENERAL OR DERABLES Final Result Performing Organization Address [facility] Co de Phone Number [address] [place] [address] * POCT glucose (04/16/2023 7:45 PM CDT) Glucose, POC 99 70 - 199 mg/dL [facility] Glucose comment 1 Use This Result [facility] Blood 04/16/2023 7:45 PM CDT 04/16/2023 7:45 PM CDT Hien Rabago MD LAB POCT ORDERABLES - MXA CE Final Result Performing Organization Address [facility] Co de Phone Number [address] [place] [address] * POCT glucose (04/16/2023 4:53 PM CDT) Glucose, POC 106 70 - 199 mg/dL [facility] Blood 04/16/2023 4:5 3 PM CDT 04/16/2023 4:53 PM CDT Hien Rabago MD LAB POCT ORDERABLES - MAX CE Final Result Performing Organization Address [facility]/ZIP Co de Phone Number [address] [place] [address] * (ABNORMAL) Folate (04/16/2023 3:37 PM CDT) Pathologist [facility] Folic acid 3.5(L) >=5.0 ng/mL [facility] Blood 04/16/2023 3:37 PM CDT 04/16/2023 3:49 PM CDT Dallas Peña MD LAB BLOOD ORDERABLES Final Resu lt Performing Organization Address [facility] Co de Phone Number [address] [place] [address] * Vitamin B12 (04/16/2023 3:37 PM CDT) Pathologist [facility] Vitamin B12 924 230 - 1,250 pg/mL [facility] Blood 04/16/2023 3:37 PM CDT 04/16/2023 3:49 PM CDT us Dallas Peña MD LAB BLOOD ORDERABLES Final Resu lt Performing Organization Address [facility] Co de Phone Number [address] [place] [address] * (ABNORMAL) Iron profile w/ IBC (04/16/2023 3:37 PM CDT) Pathologist [facility] Iron 10(L) 35 - 145 mcg/dL [facility] TIBC 186(L) 250 - 400 mcg/dL [facility] Transferrin saturation 5(L) 20 - 50 % [facility] Blood 04/16/2023 3:37 PM CDT 04/16/2023 3:49 PM CDT us Dallas Peña MD LAB BLOOD ORDERABLES Final Resu lt Performing Organization Address [facility]/ZIP Co de Phone Number [address] [place] [address] * US Kidney Complete (04/16/2023 1:16 PM [...] D: ??04/16/2023 1:53 PM T: Report ID: [id number] Reading Location: ??[id number] Procedure Note Jed Peters MD - 04/16/2023 [...] Jed Peters M.D. RB T: Report ID: [id number] Reading Location: [id number] Amilcar Hancock MD IMG US PROCEDURES Final Resul t * POCT glucose (04/16/2023 12:32 PM CDT) [facility] Signature Glucose, POC 91 70 - 199 mg/dL [facility] Glucose comment 1 Use This Result [facility] Blood 04/16/2023 12:3 2 PM CDT 04/16/2023 12:32 PM CDT Hien Rabago MD LAB POCT ORDERABLES - MAX CE Final Result [facility] [address] [facility] [facility] Department [place] [address] * US Arterial Doppler Lower Extremity Bilateral (04/16/2023 12:19 PM CDT) Anatomical Region Laterality Modality Vascular Bilateral Ultrasound 04/16/2023 Narrative 04/18/2023 8:53 PM CDT [employer] Job ID: [id number] [employer] Document ID: [id number] Dictated date/time: [id number] REASON FOR STUDY Gangrene right heel. ?? Triphasic flow in the right common femoral, popliteal, dorsalis pedis and posterior vessels. ??NORMA is 1/1, DP/PT. IMPRESSION Normal indices waveforms in the right lower extremity with no significant distal ischemia. Job ID/Internal Job ID: ??[id number] Amilcar Hancock MD IMG US PROCEDURES Final Resul t * TRANSTHORACIC ECHO (TTE) COMPLETE W DOPPLER/CF W CONTRAST (04/16/2023 10:47 AM CDT) Anatomical Region Laterality Modality Ultrasound 04/16/2023 10:4 7 AM CDT Narrative 04/16/2023 12:49 PM CDT ? Adult Echocardiogram + ----- + :Name: LEEROY CANALES Erik Ramos ?? Study Date: 04/16/2023 ?Status: MHB ?: : ?Patient Location: MHB 2 NE^[id number]^MHBHeit: 67 in ?: : ?Weight: 318 lbBP: 153/85 mmHg: :: 1990 ? Gender: Female ?BSA: 2.5 m2 ?: :Reason For Study: acute decompensated heart failure ?: :Ordering Physician: ?: :AMILCAR HANCOCK ? : : ? : :Performed By: Tamar ? : :JOLENE Tinajero ? : + ----- + Procedure A [...] MD 04/16/2023 12:49 PM Procedure Note Sultan Sofaí Muro MD - 04/16/2023 Adult Echocardiogram + ----- + :Name: LEEROY CANALES Richard Study Date: 04/16/2023Status: MHB : : Patient Location: [facility] 2NE^[id number]^MHBHeight: 67 in : : : 318 lbBP: [...] systole: 8.0 mmHg Electronically signed by: Sultan Jian MD 04/16/2023 12:49 PM Amilcar Hancock MD CV ECHO PROCEDURES Final Resu lt * MRSA Only (Staphylococcs aureus) PCR Nasal (04/16/2023 10:16 AM CDT) PCR Scrn, Methicillin resistant Staphylococcus aureus (MRSA) Not Detected Not Detected [facility] Comment: Testing performed using Nucleic Acid Amplification with the Cepheid Xpert MRSA Assay. This assay detects DNA from SCCmec strains of Staphylococcus aureus using Real- Time PCR and has been cleared by the FDA. Performance characteristics have been verified by the [facility]. Nasal 04/16/2023 10:1 6 AM CDT 04/16/2023 10:20 AM CDT Darell Paniagua MD LAB MICROBIOLOGY - GENERAL ORDERABLES Final Result Performing Organization Address [facility] Co de Phone Number [address] [address] * POCT glucose (04/16/2023 7:34 AM CDT) Glucose, POC 148 70 - 199 mg/dL [facility] Glucose comment 1 Use This Result [facility] Blood 04/16/2023 7:34 AM CDT 04/16/2023 7:34 AM CDT Hien Rabago MD LAB POCT ORDERABLES - MAX CE Final Result Performing Organization Address [facility] Co de Phone Number [address] [address] * Creatine kinase (CK), total (04/16/2023 7:06 AM CDT) CK 105 30 - 200 Units/L [facility] Blood 04/16/2023 7:06 AM CDT 04/16/2023 7:45 AM CDT Result [facility] Hien Rabago MD LAB BLOOD ORDERABLES Final Result Performing Organization Address [facility] Co de Phone Number [address] [address] * eGFR (04/16/2023 7:06 AM CDT) eGFR 26 mL/min/1. 73 m2 [facility] Comment: Interpretive Data Reference Interval Normal [...] data was last reviewed 2021. Blood 04/16/2023 7:0 6 AM CDT 04/16/2023 7:45 AM CDT us Amilcar Hancock MD LAB BLOOD ORDERABLES Final Re sult [facility] [address] [facility] [facility] Department [place] [address] * (ABNORMAL) Differential, auto (04/16/2023 7:06 AM CDT) Pathologist [facility] Neutrophil abs 19.7(H) 1.7 - 6.5 K/cumm [facility] Imm gran abs 0.4(H) 0.0 - 0.1 K/cumm [facility] Lymphocyte abs 1.3 0.8 - 3.3 K/cumm [facility] Monocyte abs 1.4(H) 0.2 - 0.8 K/cumm [facility] Eosinophil abs 0.2 0.0 - 0.5 K/cumm [facility] Basophil abs 0.0 0.0 - 0.1 K/cumm [facility] Neutrophil pct 85.4 % [facility] Comment: Interpretive Data Percent cell count reference ranges are not reported, since discordance with absolute values may lead to misinterpretation of CBC data. Current Interpretive Data was last revised on 2018. Imm gran pct 1.8 % [facility] Comment: Interpretive Data Percent cell count reference ranges are not reported, since discordance with absolute values may lead to misinterpretation of CBC data. Current Interpretive Data was last revised on 2018. Lymphocyte pct 5.7 % [facility] Comment: Interpretive Data Percent cell count reference ranges are not reported, since discordance with absolute values may lead to misinterpretation of CBC data. Current Interpretive Data was last revised on 2018. Monocyte pct 6.1 % [facility] Comment: Interpretive Data Percent cell count reference ranges are not reported, since discordance with absolute values may lead to misinterpretation of CBC data. Current Interpretive Data was last revised on 2018. Eosinophil pct 0.9 % [facility] Comment: Interpretive Data Percent cell count reference ranges are not reported, since discordance with absolute values may lead to misinterpretation of CBC data. Current Interpretive Data was last revised on 2018. Basophil pct 0.1 % [facility] Comment: Interpretive Data Percent cell count reference ranges are not reported, since discordance with absolute values may lead to misinterpretation of CBC data. Current Interpretive Data was last revised on 2018. Blood 04/16/2023 7:06 AM CDT 04/16/2023 7:45 AM CDT Sultan Sofía Muro MD LAB BLOOD ORDERABLES Final Re sult [facility] [address] [facility] Department [place] [address] * (ABNORMAL) Pro B-type natriuretic peptide (04/16/2023 7:06 AM CDT) NT-proBNP 11,534(H) <=300 pg/mL [facility] Comment: Interpretive Comments: A. [...] Heart J. 2006:27:330-337. 2. Heena RW, Reagan AM. J. AM Florina Cardiol: Cardiovasc Imag. 2009;2: 216- 225. Interpretive Data Last Revised Date: 2018. Blood 04/16/2023 7:06 AM CDT 04/16/2023 7:45 AM CDT us Darell Paniagua MD LAB BLOOD ORDERABLES Edited Result - Final [facility] [address] [facility] Department [place] [address] * Procalcitonin (04/16/2023 7:06 AM CDT) Procalcitonin 0.56 0.02 - 0.80 ng/mL [facility] Blood 04/16/2023 7:06 AM CDT 04/16/2023 7:45 AM CDT Darell Paniagua MD LAB BLOOD ORDERABLES Final Result Performing Organization Address [facility] de Phone Number [address] [address] * (ABNORMAL) Hemoglobin A1c (04/16/2023 7:06 AM CDT) [facility] Hgb A1C 6.5(H) 4.0 - 5.6 % [facility] Estimated Average Glucose 140 mg/dL [facility] Comment: The ADA recommends reporting an estimated Average Glucose (eAG) with all Hemoglobin A1c results using the equation derived from a study of 507 normal and diabetic adults. ??Minority populations were underrepresented and children were not included. ?? (Diabetes Care 31:8639-9695, 2008). ??The eAG is not equivalent to a fasting glucose. Blood 04/16/2023 7:06 AM CDT 04/16/2023 7:45 AM CDT Amilcar Hancock MD LAB BLOOD ORDERABLES Final Re sult Performing Organization Address [facility] de Phone Number [address] [address] * (ABNORMAL) Comprehensive metabolic panel (04/16/2023 7:06 AM CDT) [facility] Sodium 139 135 - 145 mmol/L [facility] Potassium, pl 3.7 3.3 - 4.9 mmol/L [facility] Chloride 106 97 - 110 mmol/L [facility] CO2 23 22 - 32 mmol/L [facility] Anion gap 10 2 - 15 mmol/L [facility] BUN 34(H) 8 - 25 mg/dL [facility] Creatinine 2.50(H) 0.60 - 1.10 mg/dL [facility] Glucose 139 70 - 199 mg/dL [facility] Comment: Interpretive Data Fasting glucose >/= [...] 2022. Calcium 7.8(L) 8.5 - 10.3 mg/dL [facility] Bilirubin, total 0.3 0.1 - 1.2 mg/dL [facility] Protein, pl 5.4(L) 6.5 - 8.5 g/dL [facility] Albumin 1.6(L) 3.5 - 5.0 g/dL [facility] Alk phos 327(H) 40 - 130 Units/L [facility] ALT 28 7 - 45 Units/L [facility] AST 18 10 - 45 Units/L [facility] Blood 04/16/2023 7:06 AM CDT 04/16/2023 7:45 AM CDT Amilcar Hancock MD LAB BLOOD ORDERABLES Final Re sult Performing Organization Address [facility] Co de Phone Number [address] [place] [address] * TSH reflex to free T4 (04/16/2023 7:06 AM CDT) TSH 4.01 0.30 - 4.20 mcIUnit/mL [facility] Blood 04/16/2023 7:06 AM CDT 04/16/2023 7:45 AM CDT Alyson SIBLEY LAB BLOOD ORDERABLES Final Re sult Performing Organization Address [facility] Co de Phone Number [address] [place] [address] * (ABNORMAL) CBC with auto differential (04/16/2023 7:06 AM CDT) WBC 23.0(H) 3.8 - 9.9 K/cumm [facility] Hgb 8.0(L) 11.9 - 15.5 g/dL [facility] Hct 25.7(L) 35.6 - 45.5 % [facility] Plt 614(H) 150 - 400 K/cumm [facility] MPV 9.2 9.1 - 12.3 fL [facility] RBC 2.99(L) 3.90 - 5.20 M/cumm [facility] MCV 86.0 81.3 - 96.4 fL [facility] MCH 26.8(L) 27.1 - 33.3 pg [facility] MCHC 31.1(L) 32.3 - 35.7 g/dL [facility] RDW CV 17.2(H) 11.1 - 14.9 % [facility] RDW SD 53.7(H) 35.7 - 48.1 fL [facility] NRBC abs 0.18(H) 0.00 - 0.01 K/cumm [facility] Blood 04/16/2023 7:06 AM CDT 04/16/2023 7:45 AM CDT us Alyson SIBLEY LAB BLOOD ORDERABLES Final Re sult [place] [id number] [facility] Department of Laboratories [place], [place] [id number] * (ABNORMAL) Urinalysis, microscopic only (04/16/2023 4:23 AM CDT) WBC, ur 6-10(A) 0 - 5 /HPF [facility] RBC, ur 6-10(A) 0 - 2 /HPF [facility] Epithelial cells, squamous, ur 1-5 0 - 5 /HPF [facility] Bacteria, ur 1+(A) [facility] Yeast, ur 2+(A) [facility] Mucous, ur Present(A) [facility] Hyaline casts, ur 21-50(A) 0 - 10 /LPF [facility] Granular casts, ur 1-5(A) 0 - 0 /LPF [facility] Culture Reflex Comment Reflex conditions for urine culture (WBC >10) not met. [facility] Urine 04/16/2023 4:23 AM CDT 04/16/2023 4:28 AM CDT Amilcar Hancock MD LAB URINE ORDERABLES Final Re sult Performing Organization Address [facility] de Phone Number [address] [address] * (ABNORMAL) Protein / creatinine ratio, urine, random (04/16/2023 4:23 AM CDT) Protein, ur, quant 241.0 mg/dL [facility] Comment: Interpretive Data No reference range established. Current interpretive data was last revised 2019. Creatinine Ur 127.0 mg/dL [facility] Comment: Interpretive Data No reference range established. Current interpretive data was last revised 2019. Protein/creatinin e ratio 1,897.6(H ) 0.0 - 180.0 mg/g CR [facility] Urine 04/16/2023 4:23 AM CDT 04/16/2023 4:28 AM CDT Amilcar Hancock MD LAB URINE ORDERABLES Final Re sult Performing Organization Address [facility] de Phone Number [address] [address] * (ABNORMAL) Urinalysis reflex to microscopic and culture Urine (04/16/2023 4:23 AM CDT) Color, ur Yellow Yellow [facility] Clarity, ur Cloudy(A) Clear [facility] Specific gravity, ur 1.012 1.003 - 1.030 [facility] pH, urine 5.0 [facility] Protein, ur ql 2+(A) Negative [facility] Glucose, ur ql 1+(A) Negative [facility] Ketones, ur Negative Negative [facility] Bilirubin, ur Negative Negative [facility] Blood, ur 2+(A) Negative [facility] Urobilinogen, ur <2.0 <2.0 mg/dL [facility] Nitrite, ur Negative Negative [facility] Leukocyte esterase, ur 1+(A) Negative [facility] UA reflex comment Reflex to microscopic UA will be performed. [facility] Urine 04/16/2023 4:23 AM CDT 04/16/2023 4:28 AM CDT Narrative [facility] - 04/16/2023 4:42 AM CDT ?? Urine pH is affected by diet, medications, systemic acid-base disturbances, and renal tubular function. ??pH may affect urinary stone formation. ??For example, urine pH below 6.0 may help reduce the tendency for calcium phosphate stones and pH greater than 6.0 may reduce the tendency for uric acid stone formation. Source: Lindsay [employer]. Last revised 11-13-2017 Amilcar Hancock MD LAB MICROBIOLOGY - GENERAL OR DERABLES Final Result [facility] Department [place] [address] * (ABNORMAL) Troponin T high-sensitivity 6-hour (04/15/2023 8:51 PM CDT) Trop T hs 89(H) <=14 ng/L [facility] Comment: Interpretive Data For further hscTnT resources [...] LAB BLOOD ORDERABLES Edited Result - Final [facility] [address] [place] [address] * POCT glucose (04/15/2023 7:56 PM CDT) Glucose, POC 189 70 - 199 mg/dL [facility] Glucose comment 1 Use This Result [facility] Glucose comment 2 RN/MD Notified [facility] Blood 04/15/2023 7:56 PM CDT 04/15/2023 7:56 PM CDT Amilcar Hancock MD LAB POCT ORDERABLES - DEVICE Final Result Performing Organization Address [facility] Co de Phone Number [place] [facility] [place] [address] * (ABNORMAL) Aerobic and anaerobic culture and gram stain Wound Abdominal, right lower quadrant (04/15/2023 6:26 PM CDT) [facility] Direct Specimen Exam Stain: Few polymorphonuclear leukocytes seen. Rare Gram Positive Bacilli Rare Gram Positive Cocci [facility] Comment:Testing performed by : [facility], [address] [facility] [place] [address] Report Final Report: Few Mixed microorganisms. Includes [...] allergic patients, please contact the laboratory at [phone] to request susceptibility testing * ??* ??* ??* ??* ??* ??* ??* ??* ??* ??* ??* ??* ??* ??* ??* ??* ??* ??* ??* (.) [facility] Comment:Testing performed by : [facility], [address] [place]., [address] Organism MIXED MICROORGANISMS. [facility] Organism STREPTOCOCCUS AGALACTIAE (GROUP B STREPTOCOCCI) [facility] Wound (Abdominal, right lower quadrant) 04/15/2023 6:26 PM CDT 04/15/2023 10:09 PM CDT Narrative [facility] - 04/22/2023 7:17 AM CDT Specimen received on an ESwab. Testing performed by [facility] Microbiology Laboratory ([phone]) Specimens submitted from normally sterile body sites [...] - GENERAL OR DERABLES Final Result [facility] [address] [facility] Department [place] [address] * (ABNORMAL) Aerobic and anaerobic culture and gram stain Wound Heel, left (04/15/2023 5:37 PM CDT) Direct Specimen Exam Stain: No polymorphonuclear leukocytes seen. Abundant Gram Positive Cocci Abundant Gram Positive Bacilli Abundant Gram Negative Bacilli [facility] Comment:Testing performed by : [facility], [address] [place]., [address] Report Final Report: Few Mixed microorganisms. Includes [...] allergic patients, please contact the laboratory at [phone] to request susceptibility testing * ??* ??* ??* ??* ??* ??* ??* ??* ??* ??* ??* ??* ??* ??* ??* ??* ??* ??* ??* (.) [facility] D[facility]D Comment:Testing performed by : [facility], [address] [facility] [place] [address] Organism STREPTOCOCCUS AGALACTIAE (GROUP B STREPTOCOCCI) [facility] DOWD Organism MIXED MICROORGANISMS. [facility] DOWD Wound (Heel, left) 04/15/2023 5:37 PM CDT 04/15/2023 7:51 PM CDT Narrative [facility] DOWD - 04/22/2023 1:34 PM CDT Specimen received on an ESwab. Testing performed by [facility] Microbiology Laboratory ([phone]) Specimens submitted from normally sterile body sites [...] - GENERAL OR DERABLES Final Result [place] [address] [facility] Department [place] [address] * (ABNORMAL) Troponin T high-sensitivity 4-hour (04/15/2023 5:37 PM CDT) [facility] Trop T hs 94(H) <=14 ng/L [facility] Comment: Interpretive Data For further hscTnT resources including the diagnostic algorithm and an aid in interpretation, copy and paste this link: https://nrl.testcatalog.org/show/hsTrop Current Interpretive Data last revised 2020. Trop T hs delta -3 ng/L [facility] Trop T hs interp Insignificant [facility] Blood 04/15/2023 5:37 PM CDT 04/15/2023 5:42 PM CDT Sam Chao MD LAB BLOOD ORDERABLES Final Result Performing Organization Address [facility] Co de Phone Number [address] [place] [address] * Influenza A/B, RSV, and COVID-19 PCR Nasopharyngeal (04/15/2023 4:52 PM CDT) Pathologist [facility] COVID-19 RNA Negative Negative [facility] Influenza A RNA Negative Negative [facility] Influenza B RNA Negative Negative [facility] RSV RNA Negative Negative [facility] Comment: Interpretive data: This test is performed using the [employer] Xpert Xpress CoV-2/Flu/RSV plus assay. This is [...] out infection. Interpretive Data last revised 2021. Nasopharyngeal 04/15/2023 4: 52 PM CDT 04/15/2023 5:09 PM CDT Narrative [facility] - 04/15/2023 5:53 PM CDT Is the Patient experiencing symptoms consistent with COVID?->No Reason for testing?->Bed placement or semi-private room Amilcar Hancock MD LAB MICROBIOLOGY - GENERAL OR DERABLES Final Result Performing Organization Address [facility]/ZIP Co de Phone Number [address] Department [employer] [place] [address] * NM Pulmonary Perfusion Imaging (04/15/2023 4:19 [...] - Electronically signed by ??Amor Rodriguez M.D. LB D: ??04/15/2023 4:31 PM T: Report ID: [id number] Reading Location: ??[id number] Procedure Note Amor Rodriguez MD - 04/15/2023 [...] 4:31 PM - Electronically signed by Amor Hernandez.D. LB T: Report ID: [id number] Reading Location: [id number] Sam Chao MD IMG NM PROCEDURES Fin al Result * Creatine kinase (CK), total (04/15/2023 3:43 PM CDT) CK 177 30 - 200 Units/L [facility] Blood 04/15/2023 3:43 PM CDT 04/15/2023 3:44 PM CDT Amilcar Hancock MD LAB BLOOD ORDERABLES Final Re sult Performing Organization Address [facility] Co de Phone Number [address] [place] [address] * (ABNORMAL) Troponin T high-sensitivity 2-hour (04/15/2023 3:43 PM CDT) Trop T hs 87(H) <=14 ng/L [facility] Comment: Interpretive Data For further hscTnT resources including the diagnostic algorithm and an aid in interpretation, copy and paste this link: https://nrl.testcatalog.org/show/hsTrop Current Interpretive Data last revised 2020. Trop T hs delta -10(C) ng/L [facility] Comment:Critical Result call ed to and read back by [id number], DATE: 2023-04-15 16:18:31 BY: [id number] Trop T hs interp Significa nt(C) [facility] Comment:Critical Result call ed to and read back by [id number], DATE: 2023-04-15 16:18:31 BY: [email or web address] Blood 04/15/2023 3:43 PM CDT 04/15/2023 3:44 PM CDT Sam Chao MD LAB BLOOD ORDERABLES Final Result Performing Organization Address City/[facility]/ZIP Co de Phone Number [address] [employer] [place] [address] * eGFR (04/15/2023 3:43 PM CDT) [facility] eGFR 24 mL/min/1. 73 m2 [facility] Comment: Interpretive Data [...] 3:43 PM CDT 04/15/2023 3:44 PM CDT us Sultan Sofía Muro MD LAB BLOOD ORDERABLES Final Re sult [place] [facility]0 [facility] [place] [address] * (ABNORMAL) Basic metabolic panel (04/15/2023 3:43 PM CDT) [facility] Sodium 136 135 - 145 mmol/L [facility] Potassium, pl 4.3 3.3 - 4.9 mmol/L [facility] Chloride 107 97 - 110 mmol/L [facility] CO2 18(L) 22 - 32 mmol/L [facility] Anion gap 11 2 - 15 mmol/L [facility] BUN 40(H) 8 - 25 mg/dL [facility] Creatinine 2.70(H) 0.60 - 1.10 mg/dL [facility] Glucose 193 70 - 199 mg/dL [facility] Comment: Interpretive Data Fasting glucose >/= [...] 2022. Calcium 7.9(L) 8.5 - 10.3 mg/dL [facility] Blood 04/15/2023 3:43 PM CDT 04/15/2023 3:44 PM CDT Sultan Sofía Muro MD LAB BLOOD ORDERABLES Final Re sult [facility] [address] [facility] Department [place] [address] * Blood culture Blood Peripheral (04/15/2023 2:46 PM CDT) Report Final Report: No growth [facility] Comment:Testing performed by : [facility], [address] [facility], [place]., [address] Blood (Peripheral) 04/15/2023 2:46 PM CDT 04/15/2023 8:23 PM CDT Narrative [facility] - 04/20/2023 7:01 AM CDT From a [...] organism identification may be performed using the LIVELENZ Gram-Positive Blood Culture Assay. This assay detects microbial DNA in positive blood culture broth via hybridization of target DNA to capture oligonucleotides on a microarray. This assay has been cleared by the [place] Food and Drug Administration and its performance characteristics have been verified by the [facility]biology Laboratory. 5. ?For questions about this culture, contact the Microbiology Laboratory at [phone]. Interpretive data was last revised on 2020. Sam Chao MD LAB MICROBIOLOGY - [facility] ORDERABLES Final Result [facility] [place] [address] [facility] Department [place] [address] * Blood culture Blood Peripheral (04/15/2023 2:33 PM CDT) Report Final Report: No growth [facility] Comment:Testing performed by : [facility], [address] [facility], [place]., [address] Blood (Peripheral) 04/15/2023 2:33 PM CDT 04/15/2023 8:23 PM CDT Blanca DOWD - 04/20/2023 7:01 AM CDT Draw [...] organism identification may be performed using the LIVELENZ Gram-Positive Blood Culture Assay. This assay detects microbial DNA in positive blood culture broth via hybridization of target DNA to capture oligonucleotides on a microarray. This assay has been cleared by the [place] Food and Drug Administration and its performance characteristics have been verified by the [facility]biology Laboratory. 5. ?For questions about this culture, contact the Microbiology Laboratory at [phone]. Interpretive data was last revised on 2020. Sam Chao MD LAB MICROBIOLOGY - [facility] ORDERABLES Final Result [facility] [address] [facility] Department [place] [address] * XR Foot Right 3 or More [...] 2:51 PM - Electronically signed by ??Rio PHILLIPS D: ??04/15/2023 2:51 PM T: Report ID: [id number] Reading Location: ??[id number] Procedure Note Rio Smith MD - 04/15/2023 [...] signed by Rio PHILLIPS T: Report ID: [id number] Reading Location: [id number] Sam Chao MD IMG XR PROCEDURES Fin [...] D: ??04/15/2023 2:43 PM T: Report ID: [id number] Reading Location: ??[id number] Procedure Note Rio Smith MD - 04/15/2023 [...] Rio Smith M.D. KR T: Report ID: [id number] Reading Location: [id number] Sam Chao MD IMG XR PROCEDURES Fin al Result * (ABNORMAL) Hemoglobin, total, art (04/15/2023 1:50 PM CDT) Pathologist [facility] Hemoglobin, Total, Arterial 8.5(L) 11.9 - 15.5 g/dL [facility] Blood 04/15/2023 1:50 PM CDT 04/15/2023 1:55 PM CDT us Sam Chao MD LAB BLOOD ORDERABLES Final Result Performing Organization Address City/[facility]/ZIP Co de Phone Number [address] [place] [address] * Carboxyhemoglobin, art (04/15/2023 1:50 PM CDT) [facility] Carboxyhemoglob in, arterial 1.7 0.0 - 2.9 % [facility] Blood 04/15/2023 1:50 PM CDT 04/15/2023 1:55 PM CDT Sam Chao MD LAB BLOOD ORDERABLES Final Result Performing Organization Address City/[facility] Co de Phone Number [address] [place] [address] * Lactate, whole blood (04/15/2023 1:50 PM CDT) [facility] Lactate, bld 0.7 0.7 - 2.0 mmol/L [facility] Blood 04/15/2023 1:50 PM CDT 04/15/2023 1:55 PM CDT us Sam Chao MD LAB BLOOD ORDERABLES Final Result Performing Organization Address City/[facility] Co de Phone Number [address] [address] * Glucose, whole blood (04/15/2023 1:50 PM CDT) Pathologist [facility] Glucose, bld 199 70 - 199 mg/dL [facility] Blood 04/15/2023 1:50 PM CDT 04/15/2023 1:55 PM CDT us Sma Chao MD LAB BLOOD ORDERABLES Final Result Performing Organization Address [facility] Co de Phone Number [address] [address] * Electrolytes, whole blood (04/15/2023 1:50 PM CDT) [facility] Sodium, Whole Blood 135 135 - 145 mmol/L [facility] Potassium, bld 3.9 3.3 - 4.9 mmol/L [facility] Ca, ionized, bld 4.76 4.45 - 5.25 mg/dL [facility] Blood 04/15/2023 1:50 PM CDT 04/15/2023 1:55 PM CDT Result [facility] us Sam Chao MD LAB BLOOD ORDERABLES Final Result Performing Organization Address [facility] de Phone Number [address] [place] [address] * (ABNORMAL) Blood gas, arterial (04/15/2023 1:50 PM CDT) Pathologist [facility] pH, Art 7.40 7.35 - 7.45 [facility] PCO2, Arterial 36 35 - 45 mmHg [facility] PO2, Arterial 49(C) 83 - 108 mmHg [facility] HCO3 Art (Calculated) 22 20 - 30 mmol/L [facility] BE, art -2 mmol/L [facility] Comment: Interpretive Data No Reference Range Established Current Interpretive Data was last revised on 2017. O2 Sat Art (Measured) 78(L) 90 - 95 % [facility] Blood 04/15/2023 1:50 PM CDT 04/15/2023 1:55 PM CDT us Sam Chao MD LAB BLOOD ORDERABLES Final Result Performing Organization Address [facility]/ZIP Co de Phone Number [facility] [address] [facility] [place] [address] * ECG 12 lead (04/15/2023 1:43 PM CDT) Pathologist [facility] Ventricular Rate EKG/Min 80 BPM [facility] Atrial Rate 80 BPM [facility] ME-Interval (MSEC) 148 ms [facility] QRS-Interval (MSEC) 78 ms [facility] QT-Interval (MSEC) 374 ms [facility] QTc 431 ms [facility] P [place] 31 degrees [facility] R [place] 22 degrees [facility] T [place] 8 degrees [facility] Diagnosis Normal sinus rhythm Low voltage QRS Borderline ECG When compared with ECG of 13-DEC-2017 18:28, No significant change was found [facility] 04/15/2023 1:43 PM CDT 04/17/2023 9:09 AM CDT us Sam Chao MD ECG ORDERABLES Final Result Performing Organization Address [facility] Co de Phone Number [facility] * eGFR (04/15/2023 1:41 PM CDT) Pathologist [facility] eGFR 24 mL/min/1. 73 m2 [facility] Comment: Interpretive Data [...] of Race in Diagnosing Kidney Disease, JASN 202). The CKD-EPI equation should not be used for patients with unstable renal function and has not been validated in children and those over 70. Current interpretive data was last reviewed 2021. Blood 04/15/2023 1:41 PM CDT 04/15/2023 1:46 PM CDT Sam Chao MD LAB BLOOD ORDERABLES Final Result [place] [id number] [facility] Department [place] [address] * (ABNORMAL) Manual Differential (04/15/2023 1:41 PM CDT) Differential Auto [facility] Neutrophil abs 28.4(H) 1.7 - 6.5 K/cumm [facility] Imm gran abs 0.6(H) 0.0 - 0.1 K/cumm [facility] Lymphocyte abs 1.2 0.8 - 3.3 K/cumm [facility] Monocyte abs 1.7(H) 0.2 - 0.8 K/cumm [facility] Eosinophil abs 0.1 0.0 - 0.5 K/cumm [facility] Basophil abs 0.1 0.0 - 0.1 K/cumm [facility] Neutrophil pct 88.5 % [facility] Comment: Interpretive Data Percent cell count reference ranges are not reported, since discordance with absolute values may lead to misinterpretation of CBC data. Current Interpretive Data was last revised on 2018. Imm gran pct 2.0 % [facility] Comment: Interpretive Data Percent cell count reference ranges are not reported, since discordance with absolute values may lead to misinterpretation of CBC data. Current Interpretive Data was last revised on 2018. Lymphocyte pct 3.8 % [facility] Comment: Interpretive Data Percent cell count reference ranges are not reported, since discordance with absolute values may lead to misinterpretation of CBC data. Current Interpretive Data was last revised on 2018. Monocyte pct 5.3 % [facility] Comment: Interpretive Data Percent cell count reference ranges are not reported, since discordance with absolute values may lead to misinterpretation of CBC data. Current Interpretive Data was last revised on 2018. Eosinophil pct 0.2 % [facility] Comment: Interpretive Data Percent cell count reference ranges are not reported, since discordance with absolute values may lead to misinterpretation of CBC data. Current Interpretive Data was last revised on 2018. Basophil pct 0.2 % [facility] Comment: Interpretive Data Percent cell count reference ranges are not reported, since discordance with absolute values may lead to misinterpretation of CBC data. Current Interpretive Data was last revised on 2018. RBC morphology Present(A) [facility] Hypochromasia 3-7/HPF(A) [facility] Platelet estimate Automated Count Confirmed [facility] Blood 04/15/2023 1:41 PM CDT 04/15/2023 1:46 PM CDT us Sam Chao MD LAB BLOOD ORDERABLES Final Result [facility] [address] [facility] Department [place] [address] * (ABNORMAL) Differential, auto (04/15/2023 1:41 PM CDT) Neutrophil abs 28.4(H) 1.7 - 6.5 K/cumm [facility] Imm gran abs 0.6(H) 0.0 - 0.1 K/cumm [facility] Lymphocyte abs 1.2 0.8 - 3.3 K/cumm [facility] Monocyte abs 1.7(H) 0.2 - 0.8 K/cumm [facility] Eosinophil abs 0.1 0.0 - 0.5 K/cumm [facility] Basophil abs 0.1 0.0 - 0.1 K/cumm [facility] Neutrophil pct 88.5 % [facility] Comment: Interpretive Data Percent cell count reference ranges are not reported, since discordance with absolute values may lead to misinterpretation of CBC data. Current Interpretive Data was last revised on 2018. Imm gran pct 2.0 % [facility] Comment: Interpretive Data Percent cell count reference ranges are not reported, since discordance with absolute values may lead to misinterpretation of CBC data. Current Interpretive Data was last revised on 2018. Lymphocyte pct 3.8 % [facility] Comment: Interpretive Data Percent cell count reference ranges are not reported, since discordance with absolute values may lead to misinterpretation of CBC data. Current Interpretive Data was last revised on 2018. Monocyte pct 5.3 % [facility] Comment: Interpretive Data Percent cell count reference ranges are not reported, since discordance with absolute values may lead to misinterpretation of CBC data. Current Interpretive Data was last revised on 2018. Eosinophil pct 0.2 % [facility] Comment: Interpretive Data Percent cell count reference ranges are not reported, since discordance with absolute values may lead to misinterpretation of CBC data. Current Interpretive Data was last revised on 2018. Basophil pct 0.2 % [facility] Comment: Interpretive Data Percent cell count reference ranges are not reported, since discordance with absolute values may lead to misinterpretation of CBC data. Current Interpretive Data was last revised on 2018. Blood 04/15/2023 1:41 PM CDT 04/15/2023 1:46 PM CDT Sam Chao MD LAB BLOOD ORDERABLES Final Result [facility] [address] [facility] Department [place] [address] * aPTT (04/15/2023 1:41 PM CDT) aPTT 33 22 - 37 sec [facility] Comment: Interpretive data aPTT test has not been evaluated for monitoring heparin therapy. The anti-Xa is the preferred test. Current interpretive data was last revised on 2019. Blood 04/15/2023 1:41 PM CDT 04/15/2023 1:46 PM CDT Sam Chao MD LAB BLOOD ORDERABLES Final Result Performing Organization Address [facility] de Phone Number [id number] [place] [address] * (ABNORMAL) Protime-INR (04/15/2023 1:41 PM CDT) PT 15.9(H) 12.0 - 14.6 sec [facility] Comment:Ref Range High INR 1.3(H) 0.9 - 1.2 [facility] Comment: Ref Range High Interpretive data Oral [...] BLOOD ORDERABLES Final Result Performing Organization Address [facility] de Phone Number [address] [address] * (ABNORMAL) D-dimer, quantitative (04/15/2023 1:41 PM [...] 68, VTE cut-off 680 ng/ml FEU. References; Schouten HT et al. Brit Med J. 2013;346:f2492. Delfin GARCIA et al. Annals Int Med. 2015;163:701-11. Current interpretive data was last revised on 2019. Blood 04/15/2023 1:41 PM CDT 04/15/2023 1:46 PM CDT Sam Chao MD LAB BLOOD ORDERABLES Final Result Performing Organization Address [facility] Co de Phone Number [address] [place] [address] * Sepsis Lactate w/ Reflex (04/15/2023 1:41 PM CDT) Pathologist [facility] Sepsis Lactate 0.9 0.7 - 2.0 mmol/L [facility] Blood 04/15/2023 1:41 PM CDT 04/15/2023 1:44 PM CDT Sam Chao MD LAB BLOOD ORDERABLES Final Result Performing Organization Address [facility] Phone Number [address] [place] [address] * (ABNORMAL) Pro B-type natriuretic peptide (04/15/2023 1:41 PM CDT) Pathologist [facility] NT-proBNP 13,499(H) <=300 pg/mL [facility] Comment: Interpretive Comments: A. Dyspnea in Acute [...] Chao MD LAB BLOOD ORDERABLES Final Result [facility] [address] [facility] Department [place] [address] * (ABNORMAL) Troponin T high-sensitivity series (baseline, 2hr, 4hr, 6hr) (04/15/2023 1:41 PM CDT) Trop T hs 97(H) <=14 ng/L [facility] Comment: Interpretive Data For further hscTnT resources including the diagnostic algorithm and an aid in interpretation, copy and paste this link: [email or web address].org/[email or web address] Current Interpretive Data last revised 2020. Blood 04/15/2023 1:41 PM CDT 04/15/2023 1:46 PM CDT Sam Chao MD LAB BLOOD ORDERABLES Final Result Performing Organization Address [facility]/ZIP Co de Phone Number DW[facility] [address] [place] [address] * (ABNORMAL) CBC with auto differential (04/15/2023 1:41 PM CDT) WBC 32.1(H) 3.8 - 9.9 K/cumm [facility] Hgb 8.7(L) 11.9 - 15.5 g/dL [facility] Hct 27.6(L) 35.6 - 45.5 % [facility] Plt 669(H) 150 - 400 K/cumm [facility] MPV 9.2 9.1 - 12.3 fL [facility] RBC 3.27(L) 3.90 - 5.20 M/cumm [facility] MCV 84.4 81.3 - 96.4 fL [facility] MCH 26.6(L) 27.1 - 33.3 pg [facility] MCHC 31.5(L) 32.3 - 35.7 g/dL [facility] RDW CV 16.9(H) 11.1 - 14.9 % [facility] RDW SD 52.6(H) 35.7 - 48.1 fL [facility] NRBC abs 0.28(H) 0.00 - 0.01 K/cumm [facility] Blood 04/15/2023 1:41 PM CDT 04/15/2023 1:46 PM CDT Sam Chao MD LAB BLOOD ORDERABLES Edited Result - Final Performing Organization Address City/[facility]/ZIP Co de Phone Number DW[facility] [address] [place] [address] * (ABNORMAL) Comprehensive metabolic panel (04/15/2023 1:41 PM CDT) Sodium 136 135 - 145 mmol/L [facility] Potassium, pl 4.0 3.3 - 4.9 mmol/L [facility] Chloride 103 97 - 110 mmol/L [facility] CO2 24 22 - 32 mmol/L [facility] Anion gap 9 2 - 15 mmol/L [facility] BUN 38(H) 8 - 25 mg/dL [facility] Creatinine 2.70(H) 0.60 - 1.10 mg/dL [facility] Glucose 192 70 - 199 mg/dL [facility] Comment: Interpretive Data Fasting glucose >/= [...] 2022. Calcium 8.1(L) 8.5 - 10.3 mg/dL [facility] Bilirubin, total 0.5 0.1 - 1.2 mg/dL [facility] Protein, pl 6.1(L) 6.5 - 8.5 g/dL [facility] Albumin 1.8(L) 3.5 - 5.0 g/dL [facility] Alk phos 381(H) 40 - 130 Units/L [facility] ALT 31 7 - 45 Units/L [facility] AST 25 10 - 45 Units/L [facility] Blood 04/15/2023 1:41 PM CDT 04/15/2023 1:46 PM CDT Sam Chao MD LAB BLOOD ORDERABLES Final Result [facility] [address] [facility] [facility] Department [place] [address] documented in this encounter Visit Diagnoses Diagnosis [...] of unspecified site(s), without mention of complication Rectal bleed Hemorrhage of rectum and anus 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 documented in this encounter Admitting Diagnoses Diagnosis Shortness of breath Rectal bleed Hemorrhage of rectum and anus documented in this encounter Administered Medications Inactive Administered Medications - up to 3 most recent administrations Medication Order MAR Action Action Date Dose Rate Site bumetanide (BUMEX) tablet 2 mg 2 mg, [...] as primary IV, not intended for KVO cefTRIAXone (ROCEPHIN) 2,000 mg/20 mL in sterile [...] 9:16 AM CDT 2,000 mg 1200 mL/hr dextrose (D10W) 10% bolus 250 mL [...] for each episode of hypoglycemia., Indications: hypoglycemic disorderIndications:hypoglycemi c disorder dextrose (GLUTOSE) 40 % gel 15 [...] Call MD for each episode of hypoglycemia. EAR NOSE AND THROAT SPECIALIST STATES GLUTOSE-15 CONTAINS GLUCOSE 40% W/W (50% W/V), Indications: hypoglycemic disorderIndications:hypoglycemi c disorder Given 04/22/2023 11:55 AM CDT 15 g doxycycline (VIBRAMYCIN) 100 mg in sodium chloride 0.9% 100 mL IVPB 100 mg, intravenous, at 100 mL/hr, Administer over 60 Minutes, 2 times daily, First dose on Fri04/25/23 at 1500, Mini-Bag Plus bag, Indications: Skin/Soft Tissue Infection, +[facility],+MRSA R leg 03[facility]03/23 [facility] New Bag 04/25/2023 5:27 PM CDT 100 mg 100 mL/hr ergocalciferol (VITAMIN D) capsule 50,000 Units 50,000 Units, oral, Weekly, First dose on Fri04/17/23 at 1115, Do not crush, break, or open. Given 04/17/2023 2:37 PM CDT 50,000 Units folic acid (FOLVITE) tablet 1 mg 1 mg, oral, Daily, First dose on Fri04/16/23 at 1900 Given 04/25/2023 10:10 AM CDT 1 mg Given 04/22/2023 9:16 AM CDT 1 mg Given 04/21/2023 9:08 AM CDT 1 mg heparin 5,000 unit/mL injection 7,500 Units [...] PRN, 2nd line for pain, Starting on 04/18/23 at 1735 Given 04/25/2023 8:24 PM CDT 0.5 mg Given 04/18/2023 6:18 PM CDT 0.5 mg insulin lispro (HumaLOG, ADMELOG) 100 unit/mL injection [...] CDT 1 Units Le ft Upper Arm ipratropium-albuteroL (DUO-NEB) 0.5-2.5 mg/3 mL nebulizer solution 3 mL 3 mL, nebulization, Every 4 hours PRN (respooler), wheezing, shortness of breath, Starting on Fri04/17/23 at 0815, Indications: Chronic Obstructive Pulmonary Disease with BronchospasmsIndications:Chronic Obstructive Pulmonary Disease with Bronchospasms Given 04/22/2023 3:05 AM CDT 3 mL Lactated Ringer's (LR) infusion 125 mL/hr, intravenous, Continuous, Starting on Fri04/24/23 at 1115, Phase I, New Bag 04/24/2023 1:11 PM CDT 125 mL/hr 125 m L/hr losartan (COZAAR) tablet 50 mg 50 mg, oral, Daily, First dose on Fri04/24/23 at 0945 Given 04/25/2023 10:10 AM CDT 50 mg metroNIDAZOLE (FLAGYL) tablet 500 mg 500 mg, oral, 3 times daily, First dose on Fri04/16/23 at 1600, Indications: Skin/Soft Tissue InfectionIndications:Skin/Soft Tissue Infection Given 04/25/2023 8:26 PM CDT [...] 1849, Indications: Nausea and VomitingIndications:Nausea and Vomiting sodium chloride (OCEAN) 0.65 % nasal spray 1 spray 1 spray, each nostril, Every 2 hours PRN, congestion, Starting on Fri04/16/23 at 0611 sodium chloride 0.9% flush 0.5-20 mL 0.5-20 [...] after each use. sodium chloride 0.9% flush 5-20 mL 5-20 [...] infusion 30 mL/hr, intravenous, Continuous, Starting on Fri04/24/23 at 1015, Pre-Procedure (GI) Restarted 04/24/2023 9:57 AM CDT New Bag 04/24/2023 9:46 AM CDT 30 mL/hr 30 mL/hr spironolactone (ALDACTONE) tablet 50 mg 50 mg, oral, 2 times daily (for diuretics), First dose (after last modification) on Fri04/22/23 at 0915 Given 04/25/2023 5:53 PM CDT 50 mg Given 04/25/2023 10:10 AM CDT 50 mg Given 04/24/2023 3:18 PM CDT 50 mg thiamine (VITAMIN B-1) tablet 50 mg 50 mg, oral, Daily, First dose on Fri04/16/23 at 1900 Given 04/25/2023 10:10 AM CDT 50 mg Given 04/22/2023 9:16 AM CDT 50 mg Given 04/21/2023 9:08 AM CDT 50 mg documented in this encounter Historical Medications [...] times daily (for diuretics), First dose on Heide 04/24/23 at 0945 0916 (JAN Hold - Provider: Automatic Transfer Provider - Reason: Patient not available)0945 (Dose Auto Held - Provider: Automatic Transfer Provider)1102 (JAN Unhold - Provider: Automatic Transfer Provider)1518 (Given - Provider: Alyson Maradiaga RN) 1010 (Given - Provider: Johanna Narayanan, JIMMIE)1753 (Given - Provider: Johanna Narayanan, JIMMIE) buPROPion (WELLBUTRIN) tablet 50 mg 50 mg, oral, 2 times daily, First dose on 04/21/23 at 2300, Indications: major depressive disorder 0900 (Not Given - Provider: Alyson Maradiaga RN - Reason: Patient not available)0916 (JAN Hold - Provider: Automatic Transfer Provider - Reason: Patient not available)1102 (MAR Unhold - Provider: Automatic Transfer Provider)2122 (Not Given - Provider: Rio Cardoza RN - Reason: Patient/family refused) 1010 (Given - Provider: Johanna Narayanan, JIMMIE)2025 (Not Given - Provider: Orquidea Hinds RN [...] Transfer Provider - Reason: Patient not available)1102 ([facility] Unhold - Provider: Automatic Transfer Provider) 1009 (Given - Provider: Johanna Narayanan, JIMMIE) DAPTOmycin (CUBICIN) 50 mg/mL sodium chloride 0.9% 700 mg (CANCELED) 700 mg, intravenous, at 420 mL/hr, Administer over 2 Minutes, Every 24 hours, First dose (after last modification) on Fri04/16/23 at 1500, Do not administer or mix with dextrose-containing solutions, Indications: Bone/Joint Infection 0916 ([facility] Hold - Provider: Automatic Transfer Provider - Reason: Patient not available)1102 ([facility] Unhold - Provider: Automatic Transfer Provider)1519 (Given - Provider: Alyson Maradiaga, JIMMIE) doxycycline (VIBRAMYCIN) 100 mg in sodium chloride 0.9% 100 mL IVPB 100 mg, intravenous, at 100 mL/hr, Administer over 60 Minutes, 2 times daily, First dose on Fri04/25/23 at 1500, Mini-Bag Plus bag, Indications: Skin/Soft Tissue Infection, +MRSA R leg 03/03/23 @[facility] 1727 (New Bag - Provider: Johanna Narayanan, JIMMIE) ergocalciferol (VITAMIN D) capsule 50,000 Units 50,000 Units, oral, Weekly, First dose on Fri04/17/23 at 1115, Do not crush, break, or open. 0900 (Not Given - Provider: Alyson Maradiaga RN - Reason: Patient not available)0916 (JAN Hold - Provider: Automatic Transfer Provider - Reason: Patient not available)1102 ([facility] Unhold - Provider: Automatic Transfer Provider) folic [...] for NPO Status, Indications: Diabetes Mellitus 0916 (MAR Hold - Provider: Automatic Transfer Provider - Reason: Patient not available)1102 (JAN Unhold - Provider: Automatic Transfer Provider)2120 (Given - Provider: Rio Cardoza, JIMMIE) 2025 (Given - Provider: Orquidea Hinds, JIMMIE) insulin lispro (HumaLOG, ADMELOG) 100 unit/mL injection [...] RN - Reason: Order parameters not met)0916 (MAR Hold - Provider: Automatic Transfer Provider - Reason: Patient not available)1102 (JAN Unhold - Provider: Automatic Transfer Provider)1149 (Not Given - Provider: Alyson Maradiaga RN - Reason: Order parameters not met)1713 (Given - Provider: Alyson Maradiaga RN) 1010 (Not Given - Provider: Johanna Narayanan RN - Reason: Other - Comment: no breakfast)1206 (Given - Provider: Johanna Narayanan RN)1754 (Given - Provider: Johanna Narayanan RN) losartan (COZAAR) tablet 50 mg 50 mg, oral, Daily, First dose on Heide 04/24/23 at 0945 0916 (MAR Hold - Provider: [...] Transfer Provider)1518 (Given - Provider: Alyson Maradiaga RN)2121 (Not Given - Provider: Rio Cardoza RN - Reason: Patient/family refused) 1010 (Given - Provider: Johanna Narayanan RN)1753 (Given - Provider: Johanna Narayanan RN)2025 (Given [...] 0556 (Given - Provider: Lesly Schneider RN)0916 ([facility] Hold - Provider: Automatic Transfer Provider - Reason: Patient not available)110 ([facility] Unhold - Provider: Automatic Transfer Provider)131 (Not Given - Provider: Alyson Maradiaga RN - Reason: IV Infusing)2121 (Given - Provider: Rio Cardoza, JIMMIE) 0428 (Given - Provider: Rio Cardoza RN)1352 (Not Given - Provider: Johanna Narayanan RN - Reason: Patient/family refused)2025 (Given - Provider: Orquidea Hinds RN) spironolactone (ALDACTONE) tablet 50 mg 50 mg, [...] Maradiaga RN) 1010 (Given - Provider: Johanna Narayanan, RN)1753 (Given - Provider: Johanna Narayanan, JIMMIE) thiamine (VITAMIN B-1) tablet 50 mg [...] 0821 (Due: Stopped) PRN Medication Order 04/24/2023 04/25/202304/2604/26/2023 acetaminophen (TYLENOL) tablet 650 mg 650 mg, oral, Every 4 hours PRN, 1st line for pain, fever, fever greater than 38.3 C, Starting on Fri04/15/23 at 1849, Indications: Fever, Pain 0916 ([facility] Hold - Provider: Automatic Transfer Provider - Reason: Patient not available)1102 ([facility] Unhold - Provider: Automatic Transfer [...] primary IV, not intended for KVO. 0916 ([facility] Hold - Provider: Automatic Transfer Provider - Reason: Patient not available)1102 ([facility] Unhold - Provider: Automatic Transfer Provider) 0910 (Not Given - Provider: Johanna Narayanan RN - Reason: Other)1727 (Given - Provider: Johanna Narayanan, JIMMIE) Carrier Fluids for Secondary Infusion - 0.9% Sodium Chloride 30 mL, intravenous, As needed, For priming tubing and/or flushing, Starting on Fri04/21/23 at 2011, 0-250ml/hr to flush line after IV infusions when no maintenance IV ordered. Infuse 30mL at the same rate as the secondary infusion. Run as primary IV, not intended for KVO 0916 ([facility] Hold - Provider: Automatic Transfer Provider - Reason: Patient not available)1102 ([facility] Unhold - Provider: Automatic Transfer [...] each episode of hypoglycemia., Indications: hypoglycemic disorder 0916 (MAR Hold - Provider: Automatic Transfer Provider - Reason: Patient not available)110 ([facility] Unhold - Provider: Automatic Transfer [...] Call MD for each episode of hypoglycemia. EAR NOSE AND THROAT SPECIALIST STATES GLUTOSE-15 CONTAINS GLUCOSE 40% W/W (50% W/V), Indications: hypoglycemic disorder 915 ([facility] Hold - Provider: Automatic Transfer Provider - Reason: Patient not available)1101 ([facility] Unhold - Provider: Automatic Transfer [...] 1 mL SWFI. Use immediately following reconstitution. 915 ([facility] Hold - Provider: Automatic Transfer Provider - Reason: Patient not available)110 ([facility] Unhold - Provider: Automatic Transfer Provider) hydrALAZINE (APRESOLINE) injection 20 mg 20 mg, intravenous, Administer over 2 Minutes, Every 6 hours PRN, high blood pressure, SBP >150, Starting on 04/26/23 at 0112 0119 (Given - Provider: Orquidea Hinds RN) HYDROmorphone (DILAUDID) injection 0.5 mg 0.5 mg, intravenous, Administer over 2 Minutes, Every 4 hours PRN, 2nd line for pain, Starting on Fri04/18/23 at 1735 0916 ([facility] Hold - Provider: Automatic Transfer Provider - Reason: Patient not available)1102 ([facility] Unhold - Provider: Automatic Transfer Provider) 2023 (Given - Provider: Orquidea Hinds RN) ipratropium-albuteroL (DUO-NEB) 0.5-2.5 mg/3 mL nebulizer solution 3 mL 3 mL, nebulization, Every 4 hours PRN (respooler), wheezing, shortness of breath, Starting on Heide 04/17/23 at 0815, Indications: Chronic Obstructive Pulmonary Disease with Bronchospasms 0916 ([facility] Hold - Provider: Automatic Transfer Provider - Reason: Patient not available)1102 ([facility] Unhold - Provider: Automatic Transfer Provider) ondansetron (ZOFRAN) injection 4 mg(Linked Group 3) 4 mg, intravenous, Administer over 2 Minutes, Every 6 hours PRN, nausea, vomiting, if not tolerating PO, Starting on Fri04/15/23 at 1849, Indications: Nausea and Vomiting 0916 ([facility] Hold - Provider: Automatic Transfer Provider - Reason: Patient not available)1102 ([facility] Unhold - Provider: Automatic Transfer Provider) ondansetron ODT (ZOFRAN-ODT) disintegrating tablet 4 mg(Linked Group 3) 4 mg, oral, Every 6 hours PRN, nausea, vomiting, Starting on Fri04/15/23 at 1849, Indications: Nausea and Vomiting 0916 ([facility] Hold - Provider: Automatic Transfer Provider - Reason: Patient not available)1102 ([facility] Unhold - Provider: Automatic Transfer Provider) sodium chloride (OCEAN) 0.65 % nasal spray 1 spray 1 spray, each nostril, Every 2 hours PRN, congestion, Starting on Fri04/16/23 at 0611 0916 ([facility] Hold - Provider: Automatic Transfer Provider - Reason: Patient not available)1102 ([facility] Unhold - Provider: Automatic Transfer Provider) sodium chloride 0.9% flush 0.5-20 mL(Linked Group 1) 0.5-20 mL, intra-catheter, As needed, line care, Starting on Fri04/15/23 at 1849, Flush volume based on line type and size. Flush before and after each use. 0916 ([facility] Hold - Provider: Automatic Transfer Provider - Reason: Patient not available)1102 ([facility] Unhold - Provider: Automatic Transfer Provider) sodium chloride 0.9% flush 5-20 mL 5-20 mL, intra-catheter, As needed, line care, with each use, Starting on Heide 04/17/23 at 1059, Flush volume based on line type, size, and protocol. 0916 ([facility] Hold - Provider: Automatic Transfer Provider - Reason: Patient not available)1102 ([facility] Unhold - Provider: Automatic Transfer Provider) sodium chloride 0.9% flush 5-20 mL 5-20 mL, intra-catheter, As needed, line care, with each use, Starting on Fri04/22/23 at 0000, Flush volume based on line type, size, and protocol. 0916 ([facility] Hold - Provider: Automatic Transfer Provider - Reason: Patient not available)1102 ([facility] Unhold - Provider: Automatic Transfer [...] Call MD for each episode of hypoglycemia. EAR NOSE AND THROAT SPECIALIST STATES GLUTOSE-15 CONTAINS GLUCOSE 40% W/W (50% [...] Fri04/15/23 at 1849, Indications: Nausea and Vomiting Or ondansetron (ZOFRAN) injection 4 mgJump to med 4 mg, intravenous, Administer over 2 Minutes, Every 6 hours PRN, nausea, vomiting, if not tolerating PO, Starting on Fri04/15/23 at 1849, Indications: Nausea and Vomiting documented in this encounter Orders Medications Ordered That Jett ht Not Have Been Administered Count Last Ordered Date First Ordered Date hydrALAZINE (APRESOLINE) injection 20 mg 1 04/26/2023 doxycycline (VIBRAMYCIN) 100 mg in sodium chloride 0.9% 100 mL IVPB 1 04/25/2023 bumetanide (BUMEX) tablet 2 mg 1 04/24/2023 diphenhydrAMINE (BENADRYL) 5 0 mg/mL injection 12.5 mg 1 04/24/2023 hydrALAZINE (APRESOLINE) injection 5 mg 1 0 04/24/2023 labetaloL (NORMODYNE,TRANDAT E) injection 5 mg 1 04/24/2023 Lactated Ringer's (LR) infusion 2 losartan (COZAAR) tablet 50 mg 1 04/24/2023 meperidine (DEMEROL) preserv ative free injection 25 mg 1 04/24/2023 metoclopramide (REGLAN) 5 mg /mL injection 10 mg 1 04/24/2023 naloxone (NARCAN) 0.4 mg/mL injection 0.04-0.4 mg 1 04/24/2023 ondansetron (ZOFRAN) injection 4 mg 2 04/2404/15/2023 potassium chloride ER (KLOR- CON) extended release tablet 40 mEq 2 04/24/2023 sodium chloride 0.9% flush 0.5-20 mL 4 04/0404/15/2023 sodium chloride 0.9% infusion 1 04/24/2023 Tc-99m ULTRATAG - labeled RB Cs injection 22 millicurie 1 04/23/2023 furosemide (LASIX) 10 mg/mL injection 80 mg 2 04/22/2023 04/15/2023 insulin glargine (LANTUS, SE MGLEE) 100 unit/mL injection 18 Units 1 04/22/2023 miconazole 2 % powder 1 04/22/2023 spironolactone (ALDACTONE) tablet 50 mg 1 0 04/22/2023 albumin 25 % bottle 25 g 1 04/21/2023 buPROPion (WELLBUTRIN) tablet 50 mg 1 04/21 Carrier Fluids for Secondary Infusion - 0.9% Sodium Chloride 2 04/21/2023 04/15/2023 lidocaine PF (XYLOCAINE) 10 mg/mL (1 %) preservative free injection 10-20 mg 2 04/21/2023 sodium chloride 0.9% flush 5-10 mL 2 202204/17/2023 sodium chloride 0.9% flush 5-20 mL 2 202204/17/2023 tc-99m macroaggregated album in (MAA) injection 5 millicurie 1 04/20/2023 spironolactone (ALDACTONE) tablet 25 mg 1 0 04/19/2023 HYDROmorphone (DILAUDID) injection 0.5 mg 1 04/18/2023 ergocalciferol (VITAMIN D) c apsule 50,000 Units 1 04/17/2023 heparin 10 unit/mL flush 20-50 Units 04/03 ipratropium-albuteroL (DUO-N EB) 0.5-2.5 mg/3 mL nebulizer solution 3 mL 3 04/17/2023 04/16/20 cefTRIAXone (ROCEPHIN) 2,000 mg/20 mL in sterile water (premix) 2,000 mg 1 04/16/2023 ferric gluconate (FERRLECIT) 125 mg of elemental iron in sodium chloride 0.9% 100 mL IVPB 1 04/16/2023 folic acid (FOLVITE) tablet 1 mg 04/16/20 iron sucrose (VENOFER) 100 m g in sodium chloride 0.9% 100 mL IVPB 04/16/2023 metroNIDAZOLE (FLAGYL) tablet 500 mg 04/03 perflutren lipid (DEFINITY) 1.5 mL in sodium chloride 0.9% 10 mL syringe 1 04/16/2023 sodium chloride (OCEAN) 0.65 % nasal spray 1 spray 1 04/16/2023 thiamine (VITAMIN B-1) tablet 50 mg 1 04/16 acetaminophen (TYLENOL) tablet 650 mg cefepime (MAXIPIME) 1,000 mg in sodium chloride 0.9% 100 mL IVPB 04/15/2023 cefepime (MAXIPIME) 2,000 mg in sodium chloride 0.9% 100 mL IVPB 04/15/2023 DAPTOmycin (CUBICIN) 50 mg/m L sodium chloride 0.9% 700 mg 2 04/15/2023 DAPTOmycin (CUBICIN) 50 mg/m L sodium chloride 0.9% 750 mg 04/15/2023 dextrose (D10W) 10% bolus 250 mL 04/15/20 dextrose (GLUTOSE) 40 % gel 15 g 04/15/20 furosemide (LASIX) 10 mg/mL injection 60 mg 1 04/15/2023 glucagon injection 1 mg 1 04/15/2023 heparin 5,000 unit/mL inject ion 7,500 Units 1 04/15/2023 insulin glargine (LANTUS, SE MGLEE) 100 unit/mL injection 22 Units 1 04/15/2023 insulin lispro (HumaLOG, ADM ELOG) 100 unit/mL injection 0-4 Units 1 04/15/2023 insulin lispro (HumaLOG, ADM ELOG) 100 unit/mL injection 0-5 Units 1 04/15/2023 insulin lispro (HumaLOG, ADM ELOG) 100 unit/mL injection 7 Units 1 04/15/2023 ondansetron ODT (ZOFRAN-ODT) disintegrating tablet 4 mg 1 04/15/2023 sodium chloride 0.9% bolus 1,000 mL 1 04/15 tc-99m macroaggregated album in (MAA) injection 4 millicurie 1 04/15/2023 vancomycin 2,000 mg/520 mL i n sodium chloride 0.9% (premix) 2,000 mg 1 04/15/2023 Lab Orders Without Results [...] 04/23/2023 documented in this encounter Care Teams Collection Correspondent Relationship Specialty Start Date End Date Cherise Patrick PA [address] [place] [id number] PCP - General Physician Drill Operator 02/20/23 documented as of this encounter
--- OUTSIDE RECORDS SUMMARY | 2024-11-17 03:12 | XMS_ITS | Encounter Summary ---
Author Organization [facility] Healthcare Address [address] [place] [address] Care Team Providers Care Wedger Machine Name Role Phone Cherise Patrick Primary Care Provider [phone] Encounter Details Date Type Department Care Team (Late st Contact Info) Description 04/16/2023 TCC Initial Eligibility Review [facility] [address] [place] [address] Barbara Mccollum, TRANSPORTATION ESCORT [address] [place], [place] [id number] Social History Tobacco Use Types Packs/Day Years Used Date Smoking Tobacco: Never Smokeless Tobacco: Never Social Connection and Isolation Panel [NHANES] A nswer Date Recorded In a typical week, how many times do you talk on the phone with family, friends, or neighbors? Never 04/16/2023 How often do you get together with friends or re latives? Never 04/16/2023 How often do you attend adventist or rastafari serv ices? 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 Gender Identity Not on file Sexual Orientation Not on file documented as of this encounter Plan of Treatment Upcoming Encounters Date Type Department Care Team (Latest Contact Info) Description 01/10/2025 10:30 AM CDT Hospital Encounter [facility]) [address] [place] [address] Bita Vega MD [address] [place] [address] 01/10/2025 10:30 AM CDT - 01/10/2025 11:15 AM CDT Surgery [facility] ([facility]) [address] [place] [address] Bita Vega MD [address] [place] [address] EXTRACTION CATARACT - PHACOEMULSIFICATION AND LENS IMPLANT Scheduled Procedures Name Priority Associated Diagnoses Date/Ti me EXTRACTION CATARACT - PHACOEMULSIFICATION AND LENS IMPLANT 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
--- OUTSIDE RECORDS SUMMARY | 2024-11-17 03:12 | XMS_ITS | Encounter Summary ---
Author Organization [facility] Healthcare Address [address] [place] [address] Care Team Providers Care Hand Cigar Making Supervisor Name Role Phone Cherise Patrick Primary Care Provider [phone] Reason for Visit * Auth/Cert (Routine) Specialty [...] Expiration Date Visits Re quested Visits Authorized [id number] 1 1 Encounter Details Date Type Department Care Team (Late st Contact Info) Description 04/24/2023 9:57 AM CDT Anesthesia Event [facility] [address] [place] [address] Rowan Hendricks MD [address] [facility] [address] [place] [address] Trisha Jackson CRNA [address] [place] [address] Anesthesia Record Procedure Summary Procedure Name Responsible Anesthesiologist Anesthesia Start Time Anesthesia Stop Time ESOPHAGOGASTRODUODENOSCOPY (Abdomen) Rowan Hendricks MD 04/24/23 0957 04/24/23 1024 Events Date Time Event Comment 04/24/2023 0946 0950 In Room 0957 An Start 0957 An Start Data 1005 Patient Positioned Laterally 1005 Bite Block Placed 1006 An Induction The patient was reevaluated immediately before moderate or deep sedation use and before anesthesia induction. 1007 Proc Start 1007 Anesthesia Ready 1016 Proc Fin 1020 an stop data 1021 Out of Room 1024 Handoff to RN I completed my handoff to the receiving nurse during which we: 1. Patient identified 2. Responsible provider identified 3. Pertinent medical history reviewed 4. Procedure type and surgical course discussed 5. Intraoperative anesthetic management and any significant issues discussed 6. Expectations and concerns for postop period discussed 7. Questions solicited from receiving nurse 8. Patient disposition at the time of handoff: No value filed. 1024 An Stop Meds Name Total lidocaine (cardiac) syringe 2 % 80 mg propofol 70 mg sodium chloride 0.9% infusion 100 mL * Agents Name O2% N2O O2 N2O Air * Blood No blood administrations on file. Lines, Drains, and Airways Type Details Placement Removal Urethral Catheter Placement Date: 04/16/23; Placement Time: 044; Inserted by: korina mendez RN; Balloon Size: 10 mL; Urine Returned: Yes 04/16/23 044 by Jyoti Marrero RN PICC Single Lumen Placement Date: 04/22/23; Placement Time: 1040; Cath Out Checklist Completed: Yes; Size: 4; Description: bioflo; Length: 46 cm; Orientation: Right; Location: Basilic, Upper arm; Site Prep: Chlorhexidine; Initial Extremity Circumference: 32.5 cm; Initial Exposed Catheter: 2 cm; Inserted By: Hiren Casillas RN; Insertion Attempts: 1; Patient Tolerance: Tolerated well; Placement Verification: Blood return, Other (Comment) (3 c wave technology) 04/22/23 1040 by Jeanna Casillas, JIMMIE RETIRED Pressure Ulcer/Pressure Injury 04/15/23; 1414; Yes; Lower, Right; Abdomen; 10/05/24 (Retired LDA, Removed/Completed by [employer] with LDA Utility); 1213 (Retired LDA, Removed/Completed by [employer] with LDA Utility) 04/15/23 1414 by Maribell Centeno, JIMMIE 10/05/24 1213 by Discharge Provider, Automatic RETIRED Pressure Ulcer/Pressure Injury 04/15/23; 1414; Yes; Right; Heel; 12/03/24 (Retired LDA, Removed/Completed by [employer] with LDA Utility); 1213 (Retired LDA, Removed/Completed by [employer] with LDA Utility) 04/15/23 1414 by Maribell Centeno RN 10/05/24 1213 by Discharge Provider, Automatic RETIRED Pressure Ulcer/Pressure Injury 04/15/23; 2123; Yes; Proximal, Right, Lateral; Thigh; 10/05/24 (Retired LDA, Removed/Completed by [employer] with LDA Utility); 1213 (Retired LDA, Removed/Completed by [employer] with LDA Utility) 04/15/23 2123 by Maribell Centeno RN 10/05/24 1213 by Discharge Provider, Automatic documented in this encounter Social History Tobacco [...] Never 04/16/2023 How often do you attend rastafari or nondenominational serv ices? Never 04/16/2023 Do you belong to any clubs o r organizations such as rastafari groups, unions, fraternal or athletic groups, or [...] money to buy more. Never true 04/16/20 Within the past 12 months, t he [...] slept in a detention (including now)? 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 Gender Identity Not on file Sexual Orientation Not on file documented as of this encounter OR Notes * Anesthesia Postprocedure Evaluation - Rowan Hendricks MD - 04/24/2023 11:46 AM CDT Patient: Gay Canales Procedure Summary Date: 04/24/23 Room / Location: [facility] END[facility]COPY ROOM 09 ERCP / [facility] Anesthesia Start: 956 Anesthesia Stop: 1023 Procedures: ESOPHAGOGASTRODUODENOSCOPY (Abdomen) SIGMOID BIOPSY Diagnosis: Rectal bleed (Rectal bleed [K62.5]) Providers: Marilin Garcia MD Responsible Provider: Rowan Hendricks MD Anesthesia Type: MAC ASA Status: 4 Anesthesia Type: MAC Last vitals BP 155/95 Pulse 85 Temp 36.8 ??C (98.2 ??F) (Temporal) Resp 22 SpO2 93% Anesthesia Post Evaluation Patient location during evaluation: PACU Patient participation: complete - patient participated Level of consciousness: fully awake Pain management: adequate Airway patency: adequate Evidence of recall: no Cardiovascular status: acceptable Respiratory status: acceptable Hydration status: acceptable Pt is: normothermic Nausea/Vomiting status: none No notable events documented. * Anesthesia Preprocedure Evaluation - Rowan Hendricks MD - 04/24/2023 9:44 AM CDT Images from the original note were not included. Anesthesia Evaluation Gay Canales is a 32 y.o. female Procedure(s): ESOPHAGOGASTRODUODENOSCOPY SIGMOIDOSCOPY Pre-Op Diagnosis Codes: * Rectal bleed [K62.5] HISTORY Past Medical History Information obtained from: patient. Neurological Pertinent negatives: seizures and CVA/stroke Cardiovascular + Hypertension + CHF (Last ECHO, EF 60-65%) Pertinent negatives: [place] and pacemaker/ICD Respiratory Pertinent negatives: COPD; asthma and sleep apnea (EDD) Hepatic / Heme + History of anemia Gastrointestinal Pertinent negatives: GERD Renal / + Renal disease - CKD Endocrine / Other + Diabetes mellitus Pertinent negatives: thyroid disease Review of Systems Pertinent negatives: SOB; recent cold/flu; fever and chest pain Patient Active Problem List Diagnosis ??? Acute diastolic congestive heart failure (CMS/HCC) (HCC) ??? Type II diabetes mellitus with foot ulcer (HCC) ??? Hypertension ??? Acute respiratory failure with hypoxia (CMS/HCC) (HCC) ??? Diarrhea ??? Acute kidney failure (HCC) ??? Elevated troponin ??? Osteomyelitis (HCC) ??? Wounds, multiple ??? Rectal bleed Past Medical History: Diagnosis Date ??? CHF (congestive heart failure) (CMS/HCC) (HCC) ??? CKD (chronic kidney disease) ??? Diabetes mellitus (HCC) ??? Hx of AKA (above knee amputation) (CMS/HCC) (HCC) Left ??? Hypertension Past Surgical History: Procedure Laterality Date ??? ABOVE KNEE LEG AMPUTATION Left OB History No obstetric history on file. No Known Allergies Med List Status: Nurse Complete Set By: Jyoti Marrero RN at 04/15/2023 11:19 PM Taking? Last Dose Start Date End Date Provider amLODIPine (NORVASC) 10 mg tablet 04/14/2023 -- -- ProviderRebel MD carvediloL (COREG) 12.5 mg tablet 04/14/2023 -- -- Rebel Garcia MD dulaglutide (TRULICITY) 0.75 mg/0.5 mL pen injector Past Week -- -- Rebel Garcia MD furosemide (LASIX) 40 mg tablet 04/14/2023 -- -- Rebel Garcia MD loperamide (IMODIUM) 2 mg capsule More than a month 02/21/23 -- Kranthi Summers, DO Take 1 capsule (2 mg total) by mouth 4 (four) times a day as needed for diarrhea losartan (COZAAR) 25 mg tablet 04/14/2023 -- -- ProviderRebel MD potassium chloride ER 10 mEq CR tablet 04/14/2023 -- -- Provider, MD Rebel Current Facility-Administered Medications: ??? [MAR Hold] acetaminophen (TYLENOL) tablet 650 mg, 650 mg, oral, Q4H PRN ??? [MAR Hold] bumetanide (BUMEX) tablet 2 mg, 2 mg, oral, BID DIURETIC ??? [MAR Hold] buPROPion (WELLBUTRIN) tablet 50 mg, 50 mg, oral, BID, 50 mg at 04/21/236 ??? Saline lock IV, , , Once AND [MAR Hold] sodium chloride 0.9% flush 0.5- 20 mL, 0.5-20 mL, intra-catheter, Q8H ERICK, 10 mL at 04/24/23 0556 AND [MAR Hold] sodium chloride 0.9% flush 0.5-20 mL, 0.5-20 mL, intra-catheter, PRN AND [MAR Hold] Carrier Fluids for Secondary Infusion - 0.9% Sodium Chloride, 30 mL, intravenous, PRN, 30 mL at 04/22/232053 ??? [MAR Hold] Carrier Fluids for Secondary Infusion - 0.9% Sodium Chloride, 30 mL, intravenous, PRN ??? [MAR Hold] cefTRIAXone (ROCEPHIN) 2,000 mg/20 mL in sterile water (premix) 2,000 mg, 2,000 mg, intravenous, Q24H ERICK, 2,000 mg at 04/23/23 0936 ??? [MAR Hold] DAPTOmycin (CUBICIN) 50 mg/mL sodium chloride 0.9% 700 mg, 700 mg, intravenous, Q24H, 700 mg at 04/23/23 1628 ??? [MAR Hold] dextrose (GLUTOSE) 40 % gel 15 g, 15 g, oral, Q15 Min PRN, 15 g at 04/22/23 1155 OR [MAR Hold] dextrose (D10W) 10% bolus 250 mL, 250 mL, intravenous, Q15 Min PRN ??? [MAR Hold] ergocalciferol (VITAMIN D) capsule 50,000 Units, 50,000 Units, oral, Weekly, 50,000 Units at 04/17/23 1437 ??? [MAR Hold] folic acid (FOLVITE) tablet 1 mg, 1 mg, oral, Daily, 1 mg at 04/22/23 0916 ??? [MAR Hold] glucagon injection 1 mg, 1 mg, intramuscular, Q30 Min PRN ??? [Held by Provider] heparin 5,000 unit/mL injection 7,500 Units, 7,500 Units, subcutaneous, Q8H ERICK, 7,500 Units at 04/22/23 1520 ??? [JAN Hold] HYDROmorphone (DILAUDID) injection 0.5 mg, 0.5 mg, intravenous, Q4H PRN, 0.5 mg at 04/18/23 1818 ??? [MAR Hold] insulin lispro (HumaLOG, ADMELOG) 100 unit/mL injection 0-4 Units, 0-4 Units, subcutaneous, Nightly ??? [MAR Hold] insulin lispro (HumaLOG, ADMELOG) 100 unit/mL injection 0-5 Units, 0-5 Units, subcutaneous, TID with meals ??? [MAR Hold] ipratropium-albuteroL (DUO-NEB) 0.5-2.5 mg/3 mL nebulizer solution 3 mL, 3 mL, nebulization, Q4H PRN (RT), 3 mL at 04/22/23 0305 ??? [MAR Hold] losartan (COZAAR) tablet 50 mg, 50 mg, oral, Daily ??? [MAR Hold] metroNIDAZOLE (FLAGYL) tablet 500 mg, 500 mg, oral, TID, 500 mg at 04/23/23 1801 ??? [JAN Hold] miconazole 2 % powder, , topical, BID, Given at 04/23/232154 ??? [JAN Hold] ondansetron ODT (ZOFRAN-ODT) disintegrating tablet 4 mg, 4 mg, oral, Q6H PRN OR [JAN Hold] ondansetron (ZOFRAN) injection 4 mg, 4 mg, intravenous, Q6H PRN, 4 mg at 04/23/23 1827 ??? [JAN Hold] potassium chloride ER (KLOR-CON) extended release tablet 40 mEq, 40 mEq, oral, Once ??? [JAN Hold] sodium chloride (OCEAN) 0.65 % nasal spray 1 spray, 1 spray, each nostril, Q2H PRN ??? sodium chloride 0.9% flush 0.5-20 mL, 0.5-20 mL, intra-catheter, Q8H ERICK ??? sodium chloride 0.9% flush 0.5-20 mL, 0.5-20 mL, intra-catheter, PRN ??? [JAN Hold] sodium chloride 0.9% flush 5-20 mL, 5-20 mL, intra-catheter, PRN ??? [JAN Hold] sodium chloride 0.9% flush 5-20 mL, 5-20 mL, intra-catheter, PRN ??? sodium chloride 0.9% infusion, 30 mL/hr, intravenous, Continuous ??? [JAN Hold] spironolactone (ALDACTONE) tablet 50 mg, 50 mg, oral, BID DIURETIC, 50 mg at 04/23/23 1556 ??? [JAN Hold] thiamine (VITAMIN B-1) tablet 50 mg, 50 mg, oral, Daily, 50 mg at 04/22/23 0916 Social History Tobacco Use Smoking Status Never Smokeless Tobacco Never Alcohol Use: Not on file Substance and Sexual Activity Drug Use Never History reviewed. No pertinent family history. Vitals: 04/24/23 0555 04/24/23 0700 04/24/23 0927 BP: 164/92 168/94 (!) 175/89 Pulse: 86 85 Resp: 20 10 Temp: 36.3 ??C (97.4 ??F) 36.1 ??C (97 ??F) SpO2: 96% 94% PT: 04/15/2023: 15.9 sec (H) INR: 04/15/2023: 1.3 (H) APTT: 04/15/2023: 33 sec Hgb A1C: 04/16/2023: 6.5 % (H) CBC RBC: 04/24/2023: 3.04 M/cumm (L) RDW: No results found for requested labs within last 30 days. MCHC: 04/24/2023: 29.6 g/dL (L) MCH: 04/24/2023: 26.0 pg (L) MCV: 04/24/2023: 87.8 fL Hct: 04/24/2023: 26.7 % (L) Hgb: 04/24/2023: 7.9 g/dL (L) WBC: 04/24/2023: 16.6 K/cumm (H) MPV: 04/24/2023: 8.9 fL (L) Platelets: 04/24/2023: 500 K/cumm (H) RDW CV: 04/24/2023: 17.2 % (H) RDW Sd: 04/24/2023: 54.9 fL (H) BMP Glucose: 04/24/2023: 135 mg/dL Calcium: 04/24/2023: 8.3 mg/dL (L) Sodium: 04/24/2023: 143 mmol/L Potassium: 04/24/2023: 3.3 mmol/L CO2: 04/24/2023: 31 mmol/L Chloride: 04/24/2023: 105 mmol/L BUN: 04/24/2023: 14 mg/dL Creatinine: 04/24/2023: 1.20 mg/dL (H) STOP-Bang Total Score: 1 DOS Physical Exam Medical history, medications, and allergies reviewed. Attestation: This PAT evaluation Airway Exam: Mallampati: II Cervical ROM: limited extension Patient presents with thick neck. Cardiovascular Exam: Rate: regular Rhythm: regular Pulmonary Exam: LCTA, bilat EENT Exam: trachea midline Dental Exam: Appears intact Current state: Patient's current state is cooperative. Anesthesia Plan ASA 4 My patient is approved for the Anesthesia Controlled Medication protocol when under care of a NAT INSTRUCTOR Planned anesthesia: MAC Induction: Induction: intravenous. Postoperative Plan: No plan for postoperative opioid use. Informed Consent: Discussed plan with NAT INSTRUCTOR. Anesthesia plan and risks discussed with patient. Consent and Attending signature: I and/or my designee have discussed the anesthesia plan, benefits, possible alternatives, parental presence at time of induction (if indicated), and clinically relevant risks that may include dental injury, unintentional awareness, and/or other complications. The patient and/or parent/legal guardian understand, and agree to proceed. All questions answered. documented in this encounter Plan of Treatment Upcoming Encounters Date Type Department Care Team (Latest Contact Info) Description 01/10/2025 10:30 AM CDT Hospital Encounter [facility]) [address] [place] [address] Bita Vega MD [address] [place] [address] 01/10/2025 10:30 AM CDT - 01/10/2025 11:15 AM CDT Surgery [facility]) [address] [place] [address] Bita Vega MD [address] [place] [address] EXTRACTION CATARACT - PHACOEMULSIFICATION AND LENS IMPLANT [...] MAR Action Action Date Dose Rate Site lidocaine (cardiac) (XYLOCAINE) preservative free injection intravenous, As needed, Starting on Heide 04/24/23 at 1006, Anesthesia Intra-op, Indications: Ventricular ArrhythmiasIndications:Ventricular Arrhythmias Given 04/24/2023 10:06 AM CDT 80 mg propofoL (DIPRIVAN) 10 mg/mL IV intravenous, As needed, Starting on Heide 04/24/23 at 1006, Anesthesia Intra-op Given 04/24/2023 10:14 AM CDT 10 mg Given 04/24/2023 10:11 AM CDT 20 mg Given 04/24/2023 10:06 AM CDT 40 mg sodium chloride 0.9% infusion 30 mL/hr, intravenous, Continuous, Starting on Heide 04/24/23 at 1015, Pre-Procedure (GI) Restarted 04/24/2023 9:57 AM CDT New Bag 04/24/2023 9:46 AM CDT 30 mL/hr 30 mL/hr documented in this encounter Care Teams Hand Cigar Making Supervisor Relationship Specialty Start Date End Date Cherise Patrick PA [address] [place] [id number] PCP - General Physician Rim Fire Priming Operator 02/20/23 documented as of this encounter
--- OUTSIDE RECORDS SUMMARY | 2024-11-17 03:13 | XMS_ITS | Encounter Summary ---
Author Organization [facility] Healthcare Address [address] [place] [address] Care Team Providers Care Rubber Cutting Machine Tender Name Role Phone Unavailable Primary Care Provider Unavailabl e Encounter Details Date Type Department Care Team (Latest Contact Info) Description 12/04/2016 3:53 PM MEDICAL AFFAIRS LEADER - 12/04/2016 8:02 PM MEDICAL AFFAIRS LEADER [facility] Keke Eid MD [address] [facility] [place] [address] Type 2 diabetes mellitus with hyperglycemia (CMS/HCC); Acute cystitis without hematuria; alf current use of insulin ([facility] [address]/[facility]) Social History Tobacco Use Types Packs/Day Years Used Date Smoking Tobacco: Never Assessed Comments Unknown Sex and Gender Information Value Date Recorded Sex Assigned at Not on file Legal Sex Female 8:53 PM MEDICAL AFFAIRS LEADER Gender Identity Not on file Sexual Orientation Not on file documented as of this encounter Last Filed Vital Signs Vital Sign Reading Time Taken Comments Blood Pressure 123/77 12/04/2016 3:58 PM MEDICAL AFFAIRS LEADER Pulse 73 12/04/2016 3:58 PM MEDICAL AFFAIRS LEADER Temperature 36.9 ??C (98.5 ??F) 12/04/2016 3:58 PM CS T Respiratory Rate - - Oxygen Saturation 100% 12/04/2016 3:58 PM MEDICAL AFFAIRS LEADER Inhaled Oxygen Concentration - - Weight 109.6 kg (241 lb 10 oz) 12/04/2016 3:58 P M MEDICAL AFFAIRS LEADER Height 170.2 cm (5' 7 ) 12/04/2016 3:58 PM MEDICAL AFFAIRS LEADER Body Mass Index 37.84 12/04/2016 3:58 PM MEDICAL AFFAIRS LEADER documented in this encounter Plan of Treatment Upcoming Encounters Date Type Department Care Team (Latest Contact Info) Description 01/10/2025 10:30 AM CDT Hospital Encounter [facility] Operating [facility] [address] [place] [address] Bita Vega MD [address] [place] [address] 01/10/2025 10:30 AM CDT - 01/10/2025 11:15 AM CDT Surgery [facility] Operating [facility] [address] [place] [address] Bita Vega MD [address] [place] [address] EXTRACTION CATARACT - PHACOEMULSIFICATION AND LENS IMPLANT Scheduled Procedures Name Priority Associated Diagnoses Date/Ti me EXTRACTION CATARACT - PHACOEMULSIFICATION AND LENS IMPLANT 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 01/10/2025 10:30 AM CDT documented as of this encounter Procedures Procedure Name Priority Date/Time Associated Diagnosis Comments BETA-HYDROXYBUTYRATE Routine 12/04/2016 4:31 PM MEDICAL AFFAIRS LEADER CBC WITH AUTO DIFFERENTIAL Routine 12/04/2016 4:31 PM MEDICAL AFFAIRS LEADER COMPREHENSIVE METABOLIC PANEL Routine 12/04/2016 4:31 PM MEDICAL AFFAIRS LEADER URINALYSIS, MACRO AND MICRO Routine 12/04/2016 4:16 PM MEDICAL AFFAIRS LEADER documented in this encounter Results * (ABNORMAL) Comprehensive metabolic panel (12/04/2016 4:31 PM MEDICAL AFFAIRS LEADER) Sodium 132(L) 135 - 145 mmol/L 12/04/2016 5:42 PM MEDICAL AFFAIRS LEADER [facility] HISTORICAL RESULTS Potassium 4.2 3.3 - 5.1 mmol/L 12/04/2016 5:42 PM MEDICAL AFFAIRS LEADER [facility] HISTORICAL RESULTS Chloride 94(L) 96 - 108 mmol/L 12/04/2016 5:42 PM [facility] [employer] [facility] HISTORICAL RESULTS Carbon Dioxide 25 22 - 32 mmol/L Anion Gap 13 7 - 16 Glucose 521(HH) 70 - 100 mg/dL Comment: CRITICAL VALUE CALLED and REPEATED. ?? at:[id number] 12/04/16 by:Ibeth Armstrong to:[id number] ?? BUN 11 6 - 20 mg/dL 12/04/2016 5:42 PM Certain [facility] HISTORICAL RESULTS Creatinine 0.9 0.5 - 1.1 mg/dL 12/04/2016 5:42 PM [facility] [employer] [facility] [employer] HISTORICAL RESULTS Comment: NOTE: Estimated GFR (Cockroft-Gault) will NOT be calculated unless patient Height and Weight were entered. Also, Kidney Disease Stage (GFR) and Estimated GFR (Cockroft-Gault) will NOT be calculated if Creatinine result is <0.2. Kidney Disease Stage > 90 mL/MIN 12/04/2016 5:42 PM [facility] [employer] [facility] HISTORICAL RESULTS Comment: NOTE; ??The GFR is an estimated value using the creatinine, sex, age, and race of the patient. THE Estimated Kidney Disease GFR is validated for AGES 18-70 YEARS STAGE ?mL/Min ?DESCRIPTION ??1 ?90 mL/min or more ?Normal or elevated GFR ??2 ? 60-89 mL/min ?Mildly decreased GFR ??3 ? 30-59 mL/min ?Moderately decreased GFR ??4 ? 15-29 mL/min ?Severely decreased GFR ??5 ? <15 mL/min ? Kidney failure or on dialysis @ Est GFR (Cockcroft-G) 123 ml/MIN Comment: Estimated GFR(Cockroft-Gault)is used to calculate patient medication dosage Calcium 9.0 8.6 - 10.0 mg/dL Total Protein 6.9 6.4 - 8.3 g/dL Albumin 4.0 3.5 - 5.2 g/dL Globulin 2.9 2.3 - 3.5 gm/dL Albumin/Globulin Ratio 1.4 1.1 - 1.8 Total Bilirubin < 0.2 0.0 - 1.2 mg/dL AST 13 0 - 32 U/L ALT 12 0 - 33 U/L Alkaline Phosphatase 77 35 - 104 U/L 12/04/2016 4:31 PM MEDICAL AFFAIRS LEADER 12/04/2016 4:38 PM MEDICAL AFFAIRS LEADER us Brittney Otoole BUILDER OPERATOR LAB BLOOD ORDERABLES Final Resu lt [facility] HISTORICAL RESULTS * (ABNORMAL) CBC with auto differential (12/04/2016 4:31 PM MEDICAL AFFAIRS LEADER) WBC 6.4 4.6 - 10.2 x10 3/ul RBC 4.95(H) 3.76 - 4.80 x10 6/ul Hemoglobin 14.4 11.0 - 15.0 g/dl Hct 44.3(H) 33.0 - 43.0 % 12/04/2016 4:44 PM MEDICAL AFFAIRS LEADER [facility] [employer] HISTORICAL RESULTS MCV 89.5 80.0 - 97.0 fl 12/04/2016 4:44 PM MEDICAL AFFAIRS LEADER [facility] [employer] HISTORICAL RESULTS MCH 29.1 27.0 - 31.2 pg 12/04/2016 4:44 PM MEDICAL AFFAIRS LEADER [facility] [employer] HISTORICAL RESULTS MCHC 32.5 31.8 - 35.4 g/dl 12/04/2016 4:44 PM MEDICAL AFFAIRS LEADER [facility] [employer] HISTORICAL RESULTS RDW 12.1 11.6 - 14.8 % 12/04/2016 4:44 PM MEDICAL AFFAIRS LEADER [facility] [employer] HISTORICAL RESULTS Plt Count 385 124 - 400 x10 3/ul 12/04/2016 4:44 PM MEDICAL AFFAIRS LEADER [facility] [employer] HISTORICAL RESULTS MPV 9.9 7.4 - 10.4 fl 12/04/2016 4:44 PM Certain [facility] [employer] HISTORICAL RESULTS Neut % 63.6 37.0 - 85.0 % 12/04/2016 4:44 PM Certain [facility] [employer] HISTORICAL RESULTS Immature Gran % 0.3 0.0 - 3.0 % 12/04/2016 4:44 PM Certain [facility] [employer] HISTORICAL RESULTS Lymph % 28.6 5.0 - 45.0 % 12/04/2016 4:44 PM Certain [facility] [employer] HISTORICAL RESULTS Graves % 5.9 3.0 - 15.0 % 12/04/2016 4:44 PM Certain [facility] [employer] HISTORICAL RESULTS Eos % 1.3 0.0 - 7.0 % 12/04/2016 4:44 PM Certain [facility] [employer] HISTORICAL RESULTS Baso % 0.3 0.0 - 2.0 % 12/04/2016 4:44 PM Certain [facility] [employer] HISTORICAL RESULTS Absolute Neuts (auto) 4.1 1.7 - 8.7 x10 3/ul 12/04/2016 4:44 PM MEDICAL AFFAIRS LEADER [facility] [employer] HISTORICAL RESULTS Immature Gran # 0.0 0.0 - 0.3 x10 3/ul 12/04/2016 4:44 PM Certain [facility] [employer] HISTORICAL RESULTS Absolute Lymphs (auto) 1.8 0.2 - 4.6 x10 3/ul 12/04/2016 4:44 PM MEDICAL AFFAIRS LEADER [facility] [employer] HISTORICAL RESULTS Absolute Monos (auto) 0.4 0.1 - 1.5 x10 3/ul Absolute Eos (auto) 0.1 0.0 - 0.7 x10 3/ul 12/04/2016 4:44 PM MEDICAL AFFAIRS LEADER [facility] HISTORICAL RESULTS Absolute Basos (auto) 0.0 0.0 - 0.2 x10 3/ul 12/04/2016 4:31 PM MEDICAL AFFAIRS LEADER 12/04/2016 4:38 PM MEDICAL AFFAIRS LEADER us Brittney Otoole BUILDER OPERATOR LAB BLOOD ORDERABLES Final Resu lt Performing Organization Address [facility] Co de Phone Number [facility] HISTORICAL RESULTS * Beta-hydroxybutyrate (12/04/2016 4:31 PM MEDICAL AFFAIRS LEADER) B-Hydroxybutyr ate 0.15 0.02 - 0.27 mmol/L Comment: ?Ketosis: ?> 0.27 mM ??Possible Ketoacidosis: ??> 5.00 mM 12/04/2016 4:31 PM MEDICAL AFFAIRS LEADER 12/04/2016 4:38 PM MEDICAL AFFAIRS LEADER us Brittney Otoole BUILDER OPERATOR LAB BLOOD ORDERABLES Final Resu lt Performing Organization Address [facility]/ZIP Co de Phone Number [facility] HISTORICAL RESULTS * (ABNORMAL) Urinalysis, macro and micro (12/04/2016 4:16 PM MEDICAL AFFAIRS LEADER) Ur Collection Type CLEAN CATCH Urine Color YELLOW YELLOW Urine Clarity Slightly-Mariela udy CLEAR Urine Glucose (UA) >=500 NORMAL mg/dL Urine Bilirubin NEGATIVE NEGATIVE mg/dl Urine Ketones NEGATIVE NEGATIVE mg/dL Ur Specific [place] 1.027(H) 1.005 - 1.025 Urine Blood >=1.0 NEGATIVE mg/dl Urine pH 6.0 5.0 - 8.0 Urine Protein NEGATIVE NEGATIVE mg/dL Urine Urobilinogen NORMAL NORMAL mg/dL Urine Nitrite POSITIVE(H) NEGATIVE Ur Leukocyte Esterase 500(H) NEGATIVE Esteban/ul Ur Microscopic Review Indicated or Ordered Urine RBC 12 0 - 2 /HPF Urine WBC 156 0 - 2 /HPF Urine Bacteria Rare /HPF Urine Mucus RARE /LPF Ur Squamous Epith Cells Rare /HPF 12/04/2016 4:16 PM MEDICAL AFFAIRS LEADER 12/04/2016 4:27 PM MEDICAL AFFAIRS LEADER Narrative [facility] HISTORICAL RESULTS - 12/04/2016 4:35 PM MEDICAL AFFAIRS LEADER us Brittney Otoole BUILDER OPERATOR LAB URINE ORDERABLES Final Resu lt [facility] HISTORICAL RESULTS documented in this encounter Visit Diagnoses Diagnosis Type 2 diabetes mellitus with hyperglycemia (CMS/HCC) (HCC) Acute cystitis without hematuria alf current use of insulin (CMS/HCC) (HCC) 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
--- OUTSIDE RECORDS SUMMARY | 2024-11-17 03:13 | XMS_ITS | Encounter Summary ---
Author Organization [facility] Healthcare Address [address] [place] [address] Care Team Providers Care Toilet And Laundry Soap Supervisor Name Role Phone Cherise Patrick Primary Care Provider [phone] Reason for Visit * Reason Comments Nausea Encounter Details Date Type Department Care Team (Late st Contact Info) Description 02/20/2023 11:06 PM CDT - 02/21/2023 4:29 AM CDT Emergency [address] [address] [address] [id number] Diarrhea, unspecified type (Primary Dx); Medication side effect; Eschar of foot Discharge Disposition: Discharge to home or self care Social History Tobacco Use Types Packs/Day Years Used Date Smoking Tobacco: Never Smokeless Tobacco: Never Tobacco Cessation:Counseling Given: Not Answered Comments Unknown Sex and Gender Information Value Date Recorded Sex Assigned at Not on file 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 Gender Identity Not on file Sexual Orientation Not on file documented as of this encounter Last Filed Vital Signs Vital Sign Reading Time Taken Comments Blood Pressure 162/89 02/21/2023 3:00 AM CDT Pulse 89 02/21/2023 3:00 AM CDT Temperature 36.8 ??C (98.3 ??F) 02/20/2023 11:09 PM C DT Respiratory Rate 20 02/20/2023 11:09 PM CDT Oxygen Saturation 93% 02/21/2023 3:00 AM CDT Inhaled Oxygen Concentration - - Weight 109 kg (240 lb 4.8 oz) 02/20/2023 11:09 P M CDT Height 167.6 cm (5' 6 ) 02/20/2023 11:09 PM CDT Body Mass Index 38.79 02/20/2023 11:09 PM CDT documented in this encounter Discharge Instructions * Discharge Instructions* Kranthi Summers DO - 02/21/2023 2:11 AM CDT Stop Metformin and restart Insulin * Attachments The following attachments cannot be sent through Care Everywhere. * Acute Diarrhea (AfterCare(R) Instructions(ER/ED)) (Kyrgyz) documented in this encounter Medications at Time of Discharge loperamide (IMODIUM) 2 mg capsule Take 1 capsule (2 mg total) by mouth 4 (four) times a day as needed for diarrhea 12 capsule 02/21/2023 documented as of this encounter Ordered Prescriptions Prescription Sig Dispense Quantity Refills Last Filled Start Date End Date loperamide (IMODIUM) 2 mg capsule Take 1 capsule (2 mg total) by mouth 4 (four) times a day as needed for diarrhea 12 capsule 02/21/2023 documented in this encounter Discharge Disposition Disposition Code Departure Means Destination Comment s Discharge to home or self care documented in this encounter ED Notes * Kranthi Summers DO - 02/21/2023 1:01 AM CDT HPI Chief Complaint Patient presents with Nausea HPI 2:12 AM Gay Canales is a 32 y.o. female w/ PMHx including DM and HTN presenting to the ED w/ c/o nausea. Pt endorses associated diarrhea and vomiting. Pt states when she eats she gets nauseas and feel like she has to vomit. Pt denies abdominal pain or any other associated symptoms. Pt states she switched from insulin to metformin approximately 1 week ago and has been experiencing symptoms since. Pt's mom is caregiver. Pt denies cough, fever, or any other associated symptoms. PCP: Dr. Patrick Patient History: Past Medical History: Diagnosis Date Diabetes mellitus (HCC) Hypertension History reviewed. No pertinent surgical history. History reviewed. No pertinent family history. Social History Tobacco Use Smoking status: Never Smokeless tobacco: Never Substance and Sexual Activity Drug use: Never Sexual activity: None Alcohol Use: Not on file Current Facility-Administered Medications: ondansetron (ZOFRAN) injection 4 mg, 4 mg, intravenous, Once Current Outpatient Medications: loperamide (IMODIUM) 2 mg capsule Review of Systems Review of Systems Constitutional: Negative for chills and fever. HENT: Negative for ear pain and sore throat. Eyes: Negative for pain and visual disturbance. Respiratory: Negative for cough and shortness of breath. Cardiovascular: Negative for chest pain and palpitations. Gastrointestinal: Positive for diarrhea, nausea and vomiting. Negative for abdominal pain. Genitourinary: Negative for dysuria and hematuria. Musculoskeletal: Negative for arthralgias and back pain. Skin: Negative for color change and rash. Neurological: Negative for seizures and syncope. All other systems reviewed and are negative. All systems reviewed and are negative or non contributory for this patients presentation today other than as stated in the HPI . Physical Exam ED Triage Vitals [02/20/23 2309] Temp Pulse Resp BP SpO2 36.8 ??C (98.3 ??F) 92 20 (!) 170/103 (!) 88 % Temp src Heart Rate Source Patient Position BP Location FiO2 (%) -- -- -- -- -- Height Height Method Weight Weight Method 1.676 m (5' 6 ) -- 109 kg (240 lb 4.8 oz) -- Physical Exam Vitals and nursing note reviewed. [...] no abdominal tenderness. Musculoskeletal: General: No swelling. Cervical back: Neck supple. Comments: R sided leg bruising. Skin: General: Skin is warm and dry. Capillary Refill: Capillary refill takes less than 2 seconds. Comments: 2cm eschar at bottom of R foot. Neurological: Mental Status: She is alert. Psychiatric: Mood and Affect: Mood normal. Procedures MDM Labs Reviewed CBC WITH AUTO DIFFERENTIAL - Abnormal Result Value WBC 9.3 Hgb 12.1 Hct 38.5 Plt 521 (*) MPV 9.5 RBC 4.33 MCV 88.9 MCH 27.9 MCHC 31.4 (*) RDW CV 18.6 (*) RDW SD 60.4 (*) NRBC abs 0.00 COMPREHENSIVE METABOLIC PANEL - Abnormal Sodium 144 Potassium, pl 3.4 Chloride 111 (*) CO2 26 Anion gap 7 BUN 6 (*) Creatinine 1.30 (*) Glucose 118 Calcium 7.8 (*) Bilirubin, total <0.2 Protein, pl 5.5 (*) Albumin 1.8 (*) Alk phos 431 (*) ALT 13 AST 17 DIFFERENTIAL AUTO Neutrophil abs 6.3 Imm gran abs 0.0 Lymphocyte abs 1.9 Monocyte abs 0.7 Eosinophil abs 0.4 Basophil abs 0.0 Neutrophil pct 67.4 Imm gran pct 0.3 Lymphocyte pct 20.5 Monocyte pct 7.4 Eosinophil pct 4.0 Basophil pct 0.4 EGFR eGFR 57 XR Foot Right 2 Views EXAM DESCRIPTION: XR FOOT RIGHT 2 VIEWS REASON FOR STUDY: wound Patient arrives to ed for complaints of n/v/d after switching from insulin to metformin 6 days ago. Patient denies any cough, fever, shortness of breath. Presents with right foot heel wound; pt doesn't know how long it's been there. 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 She now lives at home and is bed bound. TECHNIQUE: 2 radiographic views acquired of the right foot. COMPARISON: None. FINDINGS: BONES/JOINTS: No acute fracture, malalignment or osseous abnormalities. Is [id number] degenerative change of the midfoot. No periosteal reaction or bony destruction is seen to suggest osteomyelitis. SOFT TISSUES: There is marked soft tissue swelling over the dorsum of the foot. There is soft tissue thickening along the posterior aspect of the foot and ankle with faint lucency within the adjacent soft tissues overlying the posterior calcaneus, likely representing the site of the patient's wound. OTHER: No other significant finding. IMPRESSION: No plain film evidence of osteomyelitis. If there is further clinical concern for osteomyelitis, consider follow-up MRI of the hindfoot without and with contrast. THIS IS AN ELECTRONICALLY VERIFIED FINAL REPORT 02/21/2023 1:53 AM - Electronically signed by Nadia Yip M.D. SN T: Report ID: [id number] Reading Location: [id number] BP 156/90 Pulse 87 Temp 36.8 ??C (98.3 ??F) Resp 20 Ht 167.6 cm (5' 6 ) Wt 109 kg (240 lb4.8 oz) SpO2 100% BMI 38.79 kg/m?? MDM Amount and/or Complexity of Data Reviewed Clinical lab tests: reviewed Tests in the radiology section of CPT??: reviewed -Pt needs to stop taking metformin and go back to insulin -Likely that metformin is causing the nausea, vomiting, and diarrhea. Clinical Impression: Diarrhea, unspecified type Medication side effect Eschar of foot This note was prepared by Jose Barnes, acting as a Scribe for Kranthi Summers DO. I electronically signed this note at 2:12 AM on 02/21/2023. I, Kranthi Summers DO, personally performed the services described in this documentation, reviewed and edited the documentation which was dictated to the scribe in my presence, and it accurately records my words and actions. Jose Barnes 02/21/23 0105 Jose Barnes 02/21/23 0106 Cameron Lowell 02/21/23 0109 Cameron, Lowell 02/21/23 0109 Cameron, Lowell 02/21/23 0212 Kranthi Summers DO 02/21/23 0214 * Kavita Marrero RN - 02/20/2023 11:07 PM CDT Patient arrives to ed for complaints of n/v/d after switching from insulin to metformin six days ago. Patient denies any cough, fever, shortness of breath. 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 She now lives at home and is bed bound. documented in this encounter Plan of Treatment Upcoming Encounters Date Type Department Care Team (Latest Contact Info) Description 01/10/2025 10:30 AM CDT Hospital Encounter [facility] Operating [facility] [address] [place] [address] Bita Vega MD [address] [place] [address] 01/10/2025 10:30 AM CDT - 01/10/2025 11:15 AM CDT Surgery [facility] Operating [facility] [address] [place] [address] Bita Vega MD [address] [place] [address] EXTRACTION CATARACT - PHACOEMULSIFICATION AND LENS IMPLANT Scheduled Procedures Name Priority Associated Diagnoses Date/Ti me EXTRACTION CATARACT - PHACOEMULSIFICATION AND LENS IMPLANT 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 01/10/2025 10:30 AM CDT documented as of this encounter Procedures Procedure Name Priority Date/Time Associated Diagnosis Comments XR FOOT RIGHT 2 VIEWS ED 02/21/2023 1:48 AM CDT EGFR STAT 02/20/2023 11:15 PM CDT DIFFERENTIAL AUTO STAT 02/20/2023 11: 15 PM CDT CBC WITH AUTO DIFFERENTIAL STAT 02/20/2023 11:15 PM CDT COMPREHENSIVE METABOLIC PANEL STAT 02/20/2023 11:15 PM CDT documented in this encounter Results * XR Foot Right 2 Views (02/21/2023 1:48 AM CDT) Anatomical Region Laterality Modality Lower Extremities, Foot Right Computed Radiography 02/21/2023 1:51 AM CDT Narrative 02/21/2023 1:53 AM CDT EXAM DESCRIPTION: ?XR FOOT RIGHT 2 VIEWS REASON FOR STUDY: ?? wound ?? Patient arrives to ed for complaints of n/v/d after switching from insulin to metformin 6 days ago. Patient denies any cough, fever, shortness of breath. Presents with right foot heel wound; pt doesn't know how long it's been there. Patient recently ?? became a left AKA due to gangrene. She now lives at home and is bed bound. ? TECHNIQUE: 2 ??radiographic views acquired of the right foot. COMPARISON: ?? None. FINDINGS: BONES/JOINTS: ?? No acute fracture, malalignment or osseous abnormalities. ?? Is gijt-eu-[id number] degenerative change of the midfoot. ??No periosteal reaction or bony destruction is seen to suggest osteomyelitis. SOFT TISSUES: ?? There is marked soft tissue swelling over the dorsum of the foot. ??There is soft tissue thickening along the posterior aspect of the foot and ankle with faint lucency within the adjacent soft tissues overlying the posterior calcaneus, likely representing the site of the patient's wound. OTHER: ?? No other significant finding. IMPRESSION: ?? No plain film evidence of osteomyelitis. ??If there is further clinical concern for osteomyelitis, consider follow-up MRI of the hindfoot without and with contrast. THIS IS AN ELECTRONICALLY VERIFIED FINAL REPORT 02/21/2023 1:53 AM - Electronically signed by ??Nadia Yip M.D. SN D: ??02/21/2023 1:53 AM T: Report ID: [id number] Reading Location: ??[id number] Procedure Note Nadia Yip MD - 02/21/2023 EXAM DESCRIPTION: XR FOOT RIGHT 2 VIEWS REASON FOR STUDY: wound Patient arrives to ed for complaints of n/v/d after switching from insulinto metformin 6 days ago. Patient denies any cough, fever, shortness ofbreath. Presents with right foot heel wound; pt doesn't know how long it's beenthere. 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 She now lives athome and is bed bound. TECHNIQUE: 2 radiographic views acquired of the right foot. COMPARISON: None. FINDINGS: BONES/JOINTS: No acute fracture, malalignment or osseous abnormalities. Is [id number] degenerative change of the midfoot.No periosteal reaction or bony destruction is seen to suggest osteomyelitis. SOFT TISSUES: There is marked soft tissue swelling over the dorsum ofthe foot. There is soft tissue thickening along the posterior aspect of thefoot and ankle with faint lucency within the adjacent soft tissues overlyingthe posterior calcaneus, likely representing the site of the patient's wound. OTHER: No other significant finding. IMPRESSION: No plain film evidence of osteomyelitis. If there isfurther clinical concern for osteomyelitis, consider follow-up MRI of the hindfoot without and with contrast. THIS IS AN ELECTRONICALLY VERIFIED FINAL REPORT 02/21/2023 1:53 AM - Electronically signed by Nadia Yip M.D. SN T: Report ID: [id number] Reading Location: [place] [address] Kranthi Summers DO IMG XR PROCEDURES Madeline l Result * eGFR (02/20/2023 11:15 PM CDT) eGFR 57 mL/min/1. 73 m2 DWIGHT [...] interpretive data was last reviewed 2021. Blood 02/20/2023 11:1 5 PM CDT 02/20/2023 11:18 PM CDT Kranthi Summers DO LAB BLOOD ORDERABLES F inal Result [facility] [address] [facility] Department of Laboratories [place], [place] [id number] * Differential, auto (02/20/2023 11:15 PM CDT) Pathologist [facility] Neutrophil abs 6.3 1.7 - 6.5 K/cumm [facility] Imm gran abs 0.0 0.0 - 0.1 K/cumm [facility] Lymphocyte abs 1.9 0.8 - 3.3 K/cumm [facility] Monocyte abs 0.7 0.2 - 0.8 K/cumm [facility] Eosinophil abs 0.4 0.0 - 0.5 K/cumm [facility] Basophil abs 0.0 0.0 - 0.1 K/cumm [facility] Neutrophil pct 67.4 % [facility] Comment: Interpretive Data Percent cell count reference ranges are not reported, since discordance with absolute values may lead to misinterpretation of CBC data. Current Interpretive Data was last revised on 2018. Imm gran pct 0.3 % [facility] Comment: Interpretive Data Percent cell count reference ranges are not reported, since discordance with absolute values may lead to misinterpretation of CBC data. Current Interpretive Data was last revised on 2018. Lymphocyte pct 20.5 % [facility] Comment: Interpretive Data Percent cell count reference ranges are not reported, since discordance with absolute values may lead to misinterpretation of CBC data. Current Interpretive Data was last revised on 2018. Monocyte pct 7.4 % [facility] Comment: Interpretive Data Percent cell count reference ranges are not reported, since discordance with absolute values may lead to misinterpretation of CBC data. Current Interpretive Data was last revised on 2018. Eosinophil pct 4.0 % [facility] Comment: Interpretive Data Percent cell count reference ranges are not reported, since discordance with absolute values may lead to misinterpretation of CBC data. Current Interpretive Data was last revised on 2018. Basophil pct 0.4 % [facility] Comment: Interpretive Data Percent cell count reference ranges are not reported, since discordance with absolute values may lead to misinterpretation of CBC data. Current Interpretive Data was last revised on 2018. Blood 02/20/2023 11:1 5 PM CDT 02/20/2023 11:18 PM CDT Kranthi Summers DO LAB BLOOD ORDERABLES F inal Result [facility] [address] [facility] Department [place] [address] * (ABNORMAL) Comprehensive metabolic panel (02/20/2023 11:15 PM CDT) Sodium 144 135 - 145 mmol/L [facility] Potassium, pl 3.4 3.3 - 4.9 mmol/L [facility] Chloride 111(H) 97 - 110 mmol/L [facility] CO2 26 22 - 32 mmol/L [facility] Anion gap 7 2 - 15 mmol/L [facility] BUN 6(L) 8 - 25 mg/dL [facility] Creatinine 1.30(H) 0.60 - 1.10 mg/dL [facility] Glucose 118 70 - 199 mg/dL [facility] Comment: Interpretive Data Fasting glucose >/= 126 [...] classification and Diagnosis of Diabetes Diabetes Care 2022; 46: S19-S40. Current interpretive data was last revised 2022. Calcium 7.8(L) 8.5 - 10.3 mg/dL [facility] Bilirubin, total <0.2 0.1 - 1.2 mg/dL [facility] Protein, pl 5.5(L) 6.5 - 8.5 g/dL [facility] Albumin 1.8(L) 3.5 - 5.0 g/dL [facility] Alk phos 431(H) 40 - 130 Units/L [facility] ALT 13 7 - 45 Units/L [facility] AST 17 10 - 45 Units/L [facility] Blood 02/20/2023 11:1 5 PM CDT 02/20/2023 11:18 PM CDT us Kranthi Summers DO LAB BLOOD ORDERABLES F inal Result [facility] [address] [facility] Department of Laboratories [place], [place] [id number] * (ABNORMAL) CBC with auto differential (02/20/2023 11:15 PM CDT) Pathologist [facility] WBC 9.3 3.8 - 9.9 K/cumm [facility] Hgb 12.1 11.9 - 15.5 g/dL [facility] Hct 38.5 35.6 - 45.5 % [facility] Plt 521(H) 150 - 400 K/cumm [facility] MPV 9.5 9.1 - 12.3 fL [facility] RBC 4.33 3.90 - 5.20 M/cumm [facility] MCV 88.9 81.3 - 96.4 fL [facility] MCH 27.9 27.1 - 33.3 pg [facility] MCHC 31.4(L) 32.3 - 35.7 g/dL [facility] RDW CV 18.6(H) 11.1 - 14.9 % [facility] RDW SD 60.4(H) 35.7 - 48.1 fL [facility] NRBC abs 0.00 0.00 - 0.01 K/cumm [facility] Blood 02/20/2023 11:1 5 PM CDT 02/20/2023 11:18 PM CDT us Kranthi Summers DO LAB BLOOD ORDERABLES F inal Result [facility] [address] [facility] Department [place] [address] documented in this encounter Visit Diagnoses Diagnosis Diarrhea, unspecified type- Primary Medication side effect Eschar of foot 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 documented in this encounter Administered Medications Inactive Administered Medications - up to 3 most recent administrations Medication Order MAR Action Action Date Dose Rate Site loperamide (IMODIUM) capsule 2 mg 2 mg, oral, Once, On Fri02/21/23 at 0239, For 1 dose, Maximum recommended dose 16 mg/day Given 02/21/2023 2:56 AM CDT 2 mg sodium chloride 0.9% bolus 1,000 mL 1,000 mL, intravenous, at 1,000 mL/hr, Administer over 1 Hours, Once, On Fri02/21/23 at 0005, For 1 dose New Bag 02/21/2023 12:14 AM CDT 1,000 mL 1000 mL/hr documented in this encounter Active and Recently Administered Medications Times are shown in CDT. Scheduled Medication Order 02/19/2023 02/20/2023 02/21/2023 loperamide (IMODIUM) capsule 2 mg (COMPLETED) 2 mg, oral, Once, On Fri02/21/23 at 0239, For 1 dose, Maximum recommended dose 16 mg/day 0256 (Given - Provid er: Eunice Rodriguez RN) ondansetron (ZOFRAN) injection 4 mg 4 mg, intravenous, Administer over 2 Minutes, Once, On Fri02/21/23 at 0005, For 1 dose, Indications: Nausea, Vomiting 0014 (Not Given - Pr ovider: Eunice Rodriguez RN - Reason: Change in Patient Status - Comment: no nausea at this time) sodium chloride 0.9% bolus 1,000 mL (COMPLETED) 1,000 mL, intravenous, at 1,000 mL/hr, Administer over 1 Hours, Once, On Fri02/21/23 at 0005, For 1 dose 0014 (New Bag - Prov ider: Eunice Rodriguez RN)0115 (Stopped - Provider: Eunice Rodriguez RN) documented in this encounter Orders Medications Ordered That Jett ht Not Have Been Administered Count Last Ordered Date First Ordered Date ondansetron (ZOFRAN) injection 4 mg 1 02/21 documented in this encounter Care Teams Toilet And Laundry Soap Supervisor Relationship Specialty Start Date End Date Cherise Patrick PA [address] [place] [address] PCP - General Physician School Treasurer 02/20/23 documented as of this encounter
--- OUTSIDE RECORDS SUMMARY | 2024-11-17 03:13 | XMS_ITS | Encounter Summary ---
Author Organization [facility] Healthcare Address [address] [place] [address] Care Team Providers Care Boss Dyer Name Role Phone Unavailable Primary Care Provider Unavailabl e Encounter Details Date Type Department Care Team (Late st Contact Info) Description 02/21/2014 10:45 PM CDT - 02/22/2014 1:26 AM CDT Hospital Encounter [facility] Jimmy Christopher MD [address] [facility] [address] [place] [id number] Herpes simplex; Vaginitis and vulvovaginitis; Type 2 or unspecified type diabetes mellitus; Encounter for long-term (current) use of insulin (HCC) Social History Tobacco Use Types Packs/Day Years Used Date Smoking Tobacco: Never Assessed Comments Unknown Sex and Gender Information Value Date Recorded Sex Assigned at Not on file Legal Sex Female 8:53 PM [employer] Gender Identity Not on file Sexual Orientation Not on file documented as of this encounter Last Filed Vital Signs Vital Sign Reading Time Taken Comments Blood Pressure 141/89 02/21/2014 10:46 PM CDT Pulse 88 02/21/2014 10:46 PM CDT Temperature 36.9 ??C (98.5 ??F) 02/21/2014 10:46 PM C DT Respiratory Rate - - Oxygen Saturation 97% 02/21/2014 10:46 PM CDT Inhaled Oxygen Concentration - - Weight 130.6 kg (288 lb) 02/21/2014 10:46 PM CDT Height 167.6 cm (5' 6 ) 02/21/2014 10:46 PM CDT Body Mass Index 46.48 02/21/2014 10:46 PM CDT documented in this encounter Plan of Treatment Upcoming Encounters Date Type Department Care Team (Latest Contact Info) Description 01/10/2025 10:30 AM CDT Hospital Encounter [facility] [address] [place] [address] Bita Vega MD [address] [place] [address] 01/10/2025 10:30 AM CDT - 01/10/2025 11:15 AM CDT Surgery [facility] [address] [place] [address] Bita Vega MD [address] [place] [address] EXTRACTION CATARACT - PHACOEMULSIFICATION AND LENS IMPLANT Scheduled Procedures Name Priority Associated Diagnoses Date/Ti me EXTRACTION CATARACT - PHACOEMULSIFICATION AND LENS IMPLANT 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 01/10/2025 10:30 AM CDT documented as of this encounter Procedures Procedure Name Priority Date/Time Associated Diagnosis Comments MICROBIOLOGY SPECIMEN REPORT (CONVERTED) Routine 02/22/2014 12:57 AM CDT URINALYSIS AND REFLEX TO MICROSCOPIC AND CULTURE Routine 02/22/2014 12:57 AM CDT HERPES SIMPLEX VIRUS (HSV) CULTURE Routine 02/22/2014 12:47 AM CDT documented in this encounter Results * Microbiology Specimen Report (Converted) (02/22/2014 12:57 AM CDT) 02/22/2014 12:5 7 AM CDT 02/22/2014 1:08 AM CDT [facility] HISTORICAL RESULTS - 02/22/2014 12:57 AM CDT Microbiology Specimen Report (Converted) SPECIMEN [id number] ?? COLLECTED: 2014-02-22 00:57:00 RN ?? REQ#: [id number] REQUESTING DR: Terri Christopher MD ?? SOURCE: URINE ?? SP DESC: CLEAN CATC --- PROCEDURE --- ?--- RESULT --- ?? CULTURE URINE ??(Final) ??- ??Performed at [facility] ?? * Organism 1 - STREPTOCOCCUS GROUP B [STREP GR B] ?* COLONY COUNT: >100,000 CFU/ml ?? * Organism 2 - MIXED GRAM POSITIVE ORGANISMS [MIXED GRAM] ?* COLONY COUNT: >100,000 CFU/ml ? IN THE ABSENCE OF SUSCEPTIBILITY TESTING FOR OTHER SOURCES: ? GROUP B STREPTOCOCCI ARE SUSCEPTIBLE TO AMPICILLIN, ? PENICILLIN, AND CEFAZOLIN, BUT MAY BE RESISTANT TO ? ERYTHROMYCIN AND CLINDAMYCIN. ? INTRAPARTUM ANTIBIOTIC PROPHYLAXIS, SOURCE URINE: PENICILLIN ? IS THE AGENT OF CHOICE. ? IF THE PATIENT IS ALLERGIC TO PENICILLIN, OR SUSCEPTIBILITY ? TESTING DESIRED, CONTACT MICRO FOR ADDITIONAL TESTING. ?? - [facility] ? [address] ? [place] [address] ? Jimmy Torres MD Procedure Note 01/23/2019 Microbiology Specimen Report (Converted) SPECIMEN [id number] COLLECTED: 2014-02-22 00:57:00 RN REQ#:[id number] REQUESTING DR: Terri Christopher MD SOURCE: URINE SP DESC: CLEAN CATC --- PROCEDURE --- --- RESULT --- CULTURE URINE (Final) - Performed at [facility] * Organism 1 - STREPTOCOCCUS GROUP B [STREP GR B] * COLONY COUNT: >100,000 CFU/ml * Organism 2 - MIXED GRAM POSITIVE ORGANISMS [MIXED GRAM] * COLONY COUNT: >100,000 CFU/ml IN THE ABSENCE OF SUSCEPTIBILITY TESTING FOR OTHER SOURCES: GROUP B STREPTOCOCCI ARE SUSCEPTIBLE TO AMPICILLIN, PENICILLIN, AND CEFAZOLIN, BUT MAY BE RESISTANT TO ERYTHROMYCIN AND CLINDAMYCIN. INTRAPARTUM ANTIBIOTIC PROPHYLAXIS, SOURCE URINE: PENICILLIN IS THE AGENT OF CHOICE. IF THE PATIENT IS ALLERGIC TO PENICILLIN, OR SUSCEPTIBILITY TESTING DESIRED, CONTACT MICRO FOR ADDITIONAL TESTING. - [place] [id number] [place] [address] Jimmy Torres MD Jimmy Christopher MD LAB BLOOD ORDERABLES Final Result [facility] HISTORICAL RESULTS * (ABNORMAL) Urinalysis reflex to microscopic and culture (02/22/2014 12:57 AM CDT) Ur Collection Type CLEAN CATCH 02/22/2014 1:14 AM [facility] HISTORICAL RESULTS Ur Culture Indicated? C&S INDICATED 02/22/2014 1:14 AM [facility] RESULTS Comment:Culture report to esme jon. Urine Color COLORLESS YELLOW 02/22/2014 1:14 AM [facility] RES[facility] Urine Clarity HAZY CLEAR 02/22/2014 1:14 AM [facility] RESULTS Urine Glucose (UA) 1000(H) NORMAL mg/dL 02/22/2014 1:14 AM [facility] Urine Bilirubin NEGATIVE NEGATIVE mg/dl 02/22/2014 1:14 AM [facility] RES[facility] Urine Ketones 10(H) NEGATIVE mg/dL 02/22/2014 1:14 AM [facility] H[facility] RESULTS Ur Specific Mershon 1.022 1.005 - 1.025 02/22/2014 1:14 AM [facility] Urine Blood NEGATIVE NEGATIVE mg/dl 02/22/2014 1:14 AM [facility] RESULTS Urine pH 5.5 5.0 - 8.0 02/22/2014 1:14 AM [facility] Urine Protein NEGATIVE NEGATIVE mg/dL 02/22/2014 1:14 AM [facility] Urine Urobilinogen NORMAL NORMAL mg/dL 02/22/2014 1:14 AM [facility] Urine Nitrite NEGATIVE NEGATIVE 02/22/2014 1:14 AM [facility] HISTOR[facility] RESULTS Ur Leukocyte Esterase 500(H) NEGATIVE Esteban/ul 02/22/2014 1:14 AM CDT [facility] HISTORICAL RESULTS Ur Microscopic Review Indicated or Ordered 02/22/2014 1:14 AM CDT [facility] HISTORICAL RESULTS Urine RBC 8 0 - 2 /HPF 02/22/2014 1:14 AM CDT [facility] HISTORICAL RESULTS Urine WBC 16 0 - 2 /HPF 02/22/2014 1:14 AM CDT [facility] HISTORICAL RESULTS Urine Mucus Rare /LPF 02/22/2014 1:14 AM CDT [facility] HISTORICAL RESULTS Ur Squamous Epith Cells Rare /HPF 02/22/2014 1:14 AM CDT [facility] HISTORICAL RESULTS 02/22/2014 12:5 7 AM CDT 02/22/2014 1:08 AM CDT Narrative [facility] HISTORICAL RESULTS - 02/22/2014 1:14 AM CDT Collected By MG ?? 620 ?? Jimmy Christopher MD LAB MICROBIOLOGY - GENERAL ORDERABLES Final Result [facility] HISTORICAL RESULTS * Herpes simplex Virus (HSV) Culture (02/22/2014 12:47 AM CDT) CULTURE HERPES,SOURCE CERVICAL 02/22/2014 4:[address] [facility] HISTORICAL RESULTS HSV culture prelim SEE NOTE () 02/23/2014 11:03 PM T [facility] HISTORICAL RESULTS Comment: Specimen received and in progress. ?? Performed by [facility], ?? [address] [facility] [place] [address] ?? [email or web address], Warren Duran MD, Lab. Director ?? HSV culture final SEE NOTE () 02/24/2014 10:18 PM T [facility] HISTORICAL RESULTS Comment: Culture POSITIVE for Herpes Simplex Virus ?? Performed by [facility], ?? [address] [facility] [place] [address] ?? [email or web address], Warren Duran MD, Lab. Director ?? 02/22/2014 12:4 7 AM CDT 02/22/2014 4:20 AM CDT Narrative [facility] HISTORICAL RESULTS - 02/24/2014 10:18 PM CDT Source Cervical Jimmy Christopher MD LAB BLOOD ORDERABLES Final Result [facility] HISTORICAL RESULTS documented in this encounter Visit Diagnoses Diagnosis Herpes simplex Herpes simplex without mention of complication Vaginitis and vulvovaginitis Type 2 or unspecified type diabetes mellitus Encounter for long-term (current) use of insulin ([facility]) Encounter for long-term (current) use of insulin 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
--- OUTSIDE RECORDS SUMMARY | 2024-11-17 03:13 | XMS_ITS | Encounter Summary ---
Author Organization [facility] Healthcare Address [address] [place] [address] Care Team Providers Care Stockroom Attendant Name Role Phone Unavailable Primary Care Provider Unavailabl e Encounter Details Date Type Department Care Team (Latest Contact Info) Description 12/13/2017 5:51 PM STEEL POURER - 12/13/2017 8:58 PM STEEL POURER Hospital Encounter [facility] Lee Graf MD [address] [facility] [place] [address] Urinary tract infection; Type 2 diabetes mellitus with hyperglycemia ([facility]/HCC); Personal history of nicotine dependence; Patient's other noncompliance with medication regimen Social History Tobacco Use Types Packs/Day Years Used Date Smoking Tobacco: Never Assessed Comments Unknown Sex and Gender Information Value Date Recorded Sex Assigned at Not on file Legal Sex Female 8:53 PM STEEL POURER Gender Identity Not on file Sexual Orientation Not on file documented as of this encounter Last Filed Vital Signs Vital Sign Reading Time Taken Comments Blood Pressure 125/81 12/13/2017 5:54 PM STEEL POURER Pulse 85 12/13/2017 5:54 PM STEEL POURER Temperature 38.2 ??C (100.8 ??F) 12/13/2017 5:[address] Respiratory Rate - - Oxygen Saturation 99% 12/13/2017 5:54 PM STEEL POURER Inhaled Oxygen Concentration - - Weight - - Height - - Body Mass Index - - documented in this encounter Plan of Treatment Upcoming Encounters Date Type Department Care Team (Latest Contact Info) Description 01/10/2025 10:30 AM CDT Hospital Encounter [facility] [address] [place] [address] Bita Vega MD [address] [place] [address] 01/10/2025 10:30 AM CDT - 01/10/2025 11:15 AM CDT Surgery [facility] [address] [place] [address] Bita Vega MD [address] [place] [address] EXTRACTION CATARACT - PHACOEMULSIFICATION AND LENS IMPLANT Scheduled Procedures Name Priority Associated Diagnoses Date/Ti me EXTRACTION CATARACT - PHACOEMULSIFICATION AND LENS IMPLANT 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 01/10/2025 10:30 AM CDT documented as of this encounter Procedures Procedure Name Priority Date/Time Associated Diagnosis Comments MICROBIOLOGY SPECIMEN REPORT (CONVERTED) Routine 12/13/2017 7:40 PM STEEL POURER URINALYSIS AND REFLEX TO MICROSCOPIC AND CULTURE Routine 12/13/2017 7:40 PM STEEL POURER URINALYSIS, MACRO AND MICRO Routine 12/13/2017 7:08 PM STEEL POURER CBC WITH AUTO DIFFERENTIAL Routine 12/13/2017 6:54 PM STEEL POURER COMPREHENSIVE METABOLIC PANEL Routine 12/13/2017 6:54 PM STEEL POURER XR ABDOMEN 2 VIEWS W CHEST 1 VIEW Routine 12/13/2017 12:00 AM STEEL POURER documented in this encounter Results * Microbiology Specimen Report (Converted) (12/13/2017 7:40 PM STEEL POURER) 12/13/2017 7:40 PM STEEL POURER 12/13/2017 8:18 PM STEEL POURER [facility] HISTORICAL RESULTS - 12/13/2017 7:40 PM STEEL POURER Microbiology Specimen Report (Converted) SPECIMEN [id number] ?? COLLECTED: 2017-12-13 19:40:00 MH ?? REQ#: [id number] REQUESTING DR: Lee Eid MD ?? SOURCE: URINE ?? SP DESC: CLEAN CATC --- PROCEDURE --- ?--- RESULT --- ?? CULTURE URINE ??(Final) ??- ??Performed at [facility] ?* COLONY COUNT: 30,000 CFU/ml ?* MIXED GRAM POSITIVE ORGANISMS ?? * Organism 1 - KLEBSIELLA OZAENAE [KLE OZAENA] ?* COLONY COUNT: >100,000 CFU/ml ?* SEE SUSCEPTIBILITY REPORT BELOW ?? * Organism 2 - KLEB PNEUMONIAE SSP PNEUMONIAE [KLE PNEUMO] ?* COLONY COUNT: 30,000 CFU/ml ?* SEE SUSCEPTIBILITY REPORT BELOW ?? * Organism 3 - STREPTOCOCCUS GROUP B [STREP GR B] ?* COLONY COUNT: 6,000 CFU/ml ? Group B Streptococci are universally susceptibile to ? ampicillin, penicillin, cefazolin, and vancomycin. Routine ? susceptibility testing is not performed. Treatment failure ? with clindamycin exists. Use of cefazolin in non-severe ? penicllin allergies or vancomycin in severe penicillin ? allergies is recommended. ? [KLE OZAENA] ? M.I.C. ?RX AMOXICILLIN/CLAVULANIC ACID ?<=2 ? S AMPICILLIN ? R AMPICILLIN/SULBACTAM ? <=2 ? S CEFAZOLIN ?<=4 ? S CEFEPIME ? <=1 ? S CEFTRIAXONE ?<=1 ? S CIPROFLOXACIN ?<=0.25 ?S ERTAPENEM ?<=0.5 ? S GENTAMICIN ? <=1 ? S IMIPENEM ? <=0.25 ?S LEVOFLOXACIN ? <=0.12 ?S NITROFURANTOIN ? 32 ?S PIPERACILLIN/TAZOBACTAM ?<=4 ? S TRIMETHOPRIM/SULFAMETHOXAZOLE ??<=20 ?S TOBRAMYCIN ? <=1 ? S ??S=Susceptible ?? I=Intermediate ?? S=Resistant ??SDD=Susceptible Dose Dependent ?? N/R=No Report ?ROSSANA =Beta Lactamase ? [KLE PNEUMO] ? M.I.C. ?RX AMOXICILLIN/CLAVULANIC ACID ?<=2 ? S AMPICILLIN ? R AMPICILLIN/SULBACTAM ? 4 ? S CEFAZOLIN ?<=4 ? S CEFEPIME ? <=1 ? S CEFTRIAXONE ?<=1 ? S CIPROFLOXACIN ?<=0.25 ?S ERTAPENEM ?<=0.5 ? S GENTAMICIN ? <=1 ? S IMIPENEM ? <=0.25 ?S LEVOFLOXACIN ? <=0.12 ?S NITROFURANTOIN ? 64 ?I PIPERACILLIN/TAZOBACTAM ?<=4 ? S TRIMETHOPRIM/SULFAMETHOXAZOLE ??>=320 ? R TOBRAMYCIN ? <=1 ? S ??S=Susceptible ?? I=Intermediate ?? S=Resistant ??SDD=Susceptible Dose Dependent ?? N/R=No Report ?ROSSANA =Beta Lactamase - [facility] ? [address] ? [place] [address] ? Jimmy Torres MD Procedure Note 01/23/2019 Microbiology Specimen Report (Converted) SPECIMEN [id number] COLLECTED: 2017-12-13 19:40:00 REQ#:[id number] REQUESTING DR: Lee Eid MD SOURCE: URINE SP DESC: CLEANCATC --- PROCEDURE --- --- RESULT --- CULTURE URINE (Final) - Performed at [facility] * COLONY COUNT: 30,000 CFU/ml * MIXED GRAM POSITIVE ORGANISMS * Organism 1 - KLEBSIELLA OZAENAE [KLE OZAENA] * COLONY COUNT: >100,000 CFU/ml * SEE SUSCEPTIBILITY REPORT BELOW * Organism 2 - KLEB PNEUMONIAE SSP PNEUMONIAE [KLE PNEUMO] * COLONY COUNT: 30,000 CFU/ml * SEE SUSCEPTIBILITY REPORT BELOW * Organism 3 - STREPTOCOCCUS GROUP B [STREP GR B] * COLONY COUNT: 6,000 CFU/ml Group B Streptococci are universally susceptibile to ampicillin, penicillin, cefazolin, and vancomycin. Routine susceptibility testing is not performed. Treatment failure with clindamycin exists. Use of cefazolin in non-severe penicllin allergies or vancomycin in severe penicillin allergies is recommended. [KLE OZAENA] M.I.C. RX AMOXICILLIN/CLAVULANIC ACID <=2 S AMPICILLIN R AMPICILLIN/SULBACTAM <=2 S CEFAZOLIN <=4 S CEFEPIME <=1 S CEFTRIAXONE <=1 S CIPROFLOXACIN <=0.25 S ERTAPENEM <=0.5 S GENTAMICIN <=1 S IMIPENEM <=0.25 S LEVOFLOXACIN <=0.12 S NITROFURANTOIN 32 S PIPERACILLIN/TAZOBACTAM <=4 S TRIMETHOPRIM/SULFAMETHOXAZOLE <=20 S TOBRAMYCIN <=1 S S=Susceptible I=Intermediate S=Resistant SDD=Susceptible Dose Dependent N/R=No Report ROSSANA =Beta Lactamase [KLE PNEUMO] M.I.C. RX AMOXICILLIN/CLAVULANIC ACID <=2 S AMPICILLIN R AMPICILLIN/SULBACTAM 4 S CEFAZOLIN <=4 S CEFEPIME <=1 S CEFTRIAXONE <=1 S CIPROFLOXACIN <=0.25 S ERTAPENEM <=0.5 S GENTAMICIN <=1 S IMIPENEM <=0.25 S LEVOFLOXACIN <=0.12 S NITROFURANTOIN 64 I PIPERACILLIN/TAZOBACTAM <=4 S TRIMETHOPRIM/SULFAMETHOXAZOLE >=320 R TOBRAMYCIN <=1 S S=Susceptible I=Intermediate S=Resistant SDD=Susceptible Dose Dependent N/R=No Report ROSSANA =Beta Lactamase - [place] [id number] Jimmy Torres MD Lee Eid MD LAB BLOOD ORDERABLES Final Result [facility] HISTORICAL RESULTS * (ABNORMAL) Urinalysis reflex to microscopic and culture (12/13/2017 7:40 PM STEEL POURER) Ur Collection Type CLEAN CATCH 12/13/2017 8:35 PM STEEL POURER [facility] [employer] HISTORICAL RESULTS Ur Culture Indicated? C&S INDICATED 12/13/2017 8:35 PM STEEL POURER [facility] [employer] HISTORICAL RESULTS Comment:Culture report to esme jon. Urine Color YELLOW YELLOW 12/13/2017 8:35 PM [facility] [employer] HISTORICAL RESULTS Urine Clarity Slightly-Mariela udy CLEAR Urine Glucose (UA) >=500(H) NORMAL mg/dL Urine Bilirubin NEGATIVE NEGATIVE mg/dl Urine Ketones 20 NEGATIVE mg/dL Ur Specific [place] 1.032(H) 1.005 - 1.025 Urine Blood 0.03(H) NEGATIVE mg/dl Urine pH 5.0 5.0 - 8.0 Urine Protein NEGATIVE NEGATIVE mg/dL Urine Urobilinogen NORMAL NORMAL mg/dL Urine Nitrite NEGATIVE NEGATIVE Ur Leukocyte Esterase 75(H) NEGATIVE Esteban/ul Ur Microscopic Review Indicated or Ordered Urine RBC 10 0 - 2 /HPF Urine WBC 28 0 - 2 /HPF Urine Bacteria Rare /HPF Urine Mucus RARE /LPF Ur Squamous Epith Cells Rare /HPF 12/13/2017 7:40 PM STEEL POURER 12/13/2017 8:18 PM STEEL POURER Narrative [facility] HISTORICAL RESULTS - 12/13/2017 8:35 PM STEEL POURER Indication(s) for ordering ? Increased freq/urgency ?? us Lee Eid MD LAB MICROBIOLOGY - [facility] ORDERABLES Final Result [facility] HISTORICAL RESULTS * (ABNORMAL) Urinalysis, macro and micro (12/13/2017 7:08 PM [facility]) Ur Collection Type CLEAN CATCH Urine Color YELLOW YELLOW Urine Clarity Slightly-Mariela udy CLEAR Urine Glucose (UA) >=500(H) NORMAL mg/dL Urine Bilirubin NEGATIVE NEGATIVE mg/dl Urine Ketones 20 NEGATIVE mg/dL Ur Specific [place] 1.032(H) 1.005 - 1.025 Urine Blood 0.03(H) NEGATIVE mg/dl Urine pH 6.0 5.0 - 8.0 Urine Protein NEGATIVE NEGATIVE mg/dL Urine Urobilinogen NORMAL NORMAL mg/dL Urine Nitrite POSITIVE(H) NEGATIVE Ur Leukocyte Esterase 250(H) NEGATIVE Esteban/ul Ur Microscopic Review Indicated or Ordered Urine RBC 9 0 - 2 /HPF Urine WBC 44 0 - 2 /HPF Urine Bacteria Rare /HPF Urine Mucus RARE /LPF Ur Squamous Epith Cells Rare /HPF 12/13/2017 7:08 PM STEEL POURER 12/13/2017 7:23 PM STEEL POURER Narrative [facility] HISTORICAL RESULTS - 12/13/2017 7:31 PM STEEL POURER us Christiana SIBLEY LAB URINE ORDERABLES Final Result [facility] HISTORICAL RESULTS * (ABNORMAL) Comprehensive metabolic panel (12/13/2017 6:54 PM STEEL POURER) Sodium 134(L) 135 - 145 mmol/L Potassium 4.9 3.3 - 5.1 mmol/L Chloride 98 96 - 108 mmol/L Carbon Dioxide 24 22 - 32 mmol/L Anion Gap 12 7 - 16 Glucose 375(H) 70 - 100 mg/dL BUN 11 6 - 20 mg/dL Creatinine 1.1 0.5 - 1.1 mg/dL Comment: NOTE: Estimated GFR (Cockroft-Gault) will NOT be calculated unless patient Height and Weight were entered. Also, Kidney Disease Stage (GFR) and Estimated GFR (Cockroft-Gault) will NOT be calculated if Creatinine result is <0.2. Kidney Disease Stage 78 mL/MIN Comment: NOTE; ??The GFR is an estimated [...] ? Kidney failure or on dialysis @ Calcium 9.5 8.6 - 10.0 mg/dL Total Protein 7.4 6.4 - 8.3 g/dL Albumin 4.0 3.5 - 5.2 g/dL Globulin 3.4 2.3 - 3.5 gm/dL Albumin/Globulin Ratio 1.2 1.1 - 1.8 Total Bilirubin 0.2 0.0 - 1.2 mg/dL AST 10 0 - 32 U/L ALT 9 0 - 33 U/L Alkaline Phosphatase 82 35 - 104 U/L 12/13/2017 6:54 PM STEEL POURER 12/13/2017 6:59 PM STEEL POURER [facility] HISTORICAL RESULTS - 12/13/2017 7:26 PM STEEL POURER us Christiana SIBLEY LAB BLOOD ORDERABLES Final Result [facility] [employer] HISTORICAL RESULTS * (ABNORMAL) CBC with auto differential (12/13/2017 6:54 PM STEEL POURER) WBC 8.1 3.5 - 10.5 x10 3/ul 12/13/2017 7:02 PM STEEL POURER [employer] HISTORICAL RESULTS Comment:New Reference Range in use 11/20/17. RBC 5.10(H) 3.76 - 4.80 x10 6/ul 12/13/2017 7:02 PM STEEL POURER [employer] HISTORICAL RESULTS Hemoglobin 14.7 11.0 - 15.0 g/dL 12/13/2017 7:02 PM STEEL POURER [employer] HISTORICAL RESULTS Hct 45.2(H) 33.0 - 43.0 % 12/13/2017 7:02 PM STEEL POURER [employer] HISTORICAL RESULTS MCV 88.6 80.0 - 97.0 fl 12/13/2017 7:02 PM STEEL POURER [employer] HISTORICAL RESULTS MCH 28.8 27.0 - 31.2 pg 12/13/2017 7:02 PM STEEL POURER [employer] HISTORICAL RESULTS MCHC 32.5 31.8 - 35.4 g/dl 12/13/2017 7:02 PM STEEL POURER [employer] HISTORICAL RESULTS RDW 11.7 11.6 - 14.8 % 12/13/2017 7:02 PM STEEL POURER [employer] HISTORICAL RESULTS Plt Count 416 150 - 450 X10 3/ul 12/13/2017 7:02 PM STEEL POURER [employer] HISTORICAL RESULTS Comment:New Reference Range in use 11/20/17. MPV 10.0 7.4 - 10.4 fl 12/13/2017 7:02 PM STEEL POURER [employer] HISTORICAL RESULTS Neut % 59.3 37.0 - 85.0 % 12/13/2017 7:02 PM STEEL POURER [employer] HISTORICAL RESULTS Immature Gran % 0.4 0.0 - 3.0 % 12/13/2017 7:02 PM STEEL POURER [employer] HISTORICAL RESULTS Lymph % 30.8 5.0 - 45.0 % 12/13/2017 7:02 PM STEEL POURER [employer] HISTORICAL RESULTS [place] % 8.1 3.0 - 15.0 % Eos % 1.2 0.0 - 7.0 % Baso % 0.2 0.0 - 2.0 % Absolute Neuts (auto) 4.8 1.7 - 8.7 x10 3/ul Immature Gran # 0.0 0.0 - 0.3 x10 3/ul Absolute Lymphs (auto) 2.5 0.2 - 4.6 x10 3/ul Absolute Monos (auto) 0.7 0.1 - 1.5 x10 3/ul Absolute Eos (auto) 0.1 0.0 - 0.7 x10 3/ul Absolute Basos (auto) 0.0 0.0 - 0.2 x10 3/ul Nucleat RBC Rel Count 0.0 0 - 3 #/100WBC Absolute Nucleated RBC 0.00 x10 3/ul Absolute Neutrophils 4800 200 - 8000 /ul 12/13/2017 6:54 PM STEEL POURER 12/13/2017 6:59 PM [facility] Narrative [facility] HISTORICAL RESULTS - 12/13/2017 7:02 PM STEEL POURER us Christiana SIBLEY LAB BLOOD ORDERABLES Final Result [facility] HISTORICAL RESULTS * XR Abdomen 2 Views W Chest 1 View (12/13/2017 12:00 AM STEEL POURER) Anatomical Region Laterality Modality Body, Abdomen N/A Radiographic Nissa ging 12/13/2017 Impressions 12/13/2017 8:18 PM STEEL POURER ??No acute abnormalities. THIS IS AN ELECTRONICALLY VERIFIED FINAL REPORT 12/13/2017 8:15 PM - Electronically signed by Ambrocio Nur GR: GR D: ??12/13/2017 8:15 PM T: ??12/13/2017 8:15 PM Report ID: [id number] Reading Location: ??[id number] [EOD] Narrative 12/13/2017 8:18 PM STEEL POURER EXAM DESCRIPTION: ??Obstruction Series AP/UP/Chest COMPLETED DATE/TIME: ??12/13/2017 8:00 pm REASON FOR STUDY: ??No bowel movement x3 days COMPARISON: ??05/16/2011 TECHNIQUE: ??Frontal chest, supine abdomen and upright/decubitus abdomen radiographic images acquired. FINDINGS: CHEST: No acute abnormalities. FREE-AIR: None. No abnormal gas collections. ?? BOWEL GAS PATTERN: Nonobstructive pattern. ??There is a moderate quantity of formed stool. ??No dilated loops or air fluid levels. CALCIFICATIONS: No significant abnormal calcifications. ?? HARDWARE: ??None. BONES: No significant abnormality. OTHER: No other significant finding. Procedure Note Provider, MD Rebel - 03/21/2021 EXAM DESCRIPTION: Obstruction Series AP/UP/Chest COMPLETED DATE/TIME: 12/13/2017 8:00 pm REASON FOR STUDY: No bowel movement x3 days COMPARISON: 05/16/2011 TECHNIQUE: Frontal chest, supine abdomen and upright/decubitus abdomen radiographic images acquired. FINDINGS: CHEST: No acute abnormalities. FREE-AIR: None. No abnormal gas collections. BOWEL GAS PATTERN: Nonobstructive pattern. There is a moderate quantityof formed stool. No dilated loops or air fluid levels. CALCIFICATIONS: No significant abnormal calcifications. HARDWARE: None. BONES: No significant abnormality. OTHER: No other significant finding. IMPRESSION: No acute abnormalities. 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
--- OUTSIDE RECORDS SUMMARY | 2024-11-17 03:15 | XMS_ITS | Continuity of Care Document ---
Author Organization [facility] Address [address] [place] [address] Assessment Encounter Date Assessment Date Assessment LastModified by Organization Details LastModified Time 09/08/2024 09/08/2024 Advised pt to f/u in 1 mo. [email or web address] Not available 09/09/2024 10:18:52 Plan of Treatment Reminders Order Date Submit Date Provider Last Modified By Organization Details Last Modified Time Details Appointments ANY 15 2024 02:00P M Natalee Jennings MD Not available Not available Not available Lab test, urine 2023 024 [email or web address] In-Office Order, Internal Use Only DO Not Attach Compendium DO Not Attach Compendium, Do Not Delete/merge, [id number] 09/08/2024 17:28:33 microalbu min/creat inine, mass ratio, urine 2023 024 RIGOBERTO [facility], [address], [facility] [address], [place], [address], 09/10/2024 12:29:42 Referral cardiolog ist referral 2023 024 Mateo Ortiz MD, [address] , [facility] [address], [place], [address], 09/23/2024 08:21:20 ophthalmo logist referral 2023 024 [facility] [place], [address] [place] [address], [place], [address], 09/22/2024 08:07:09 Procedures None recorded. Surgeries None recorded. Imaging None recorded. Medication Orders Eliquis 5 mg tablet 2023 [facility], [address] [place] [address], [id number], 09/08/2024 17:27:56 Senexon-S 8.6 mg-50 mg tablet 2023 [facility], [address] [place] [address], [id number], 09/08/2024 17:12:34 furosemid e 40 mg tablet 2023 [facility], [address] [place] [address], [id number], 09/08/2024 17:12:40 carvedilo l 25 mg tablet 2023 [facility], [address] [place] [address], [id number], 09/08/2024 17:12:33 gabapenti n 300 mg capsule 2023 [facility], [address] [place] [address], [id number], 09/08/2024 17:12:36 Slynd 4 mg (28) tablet 2023 [facility], [address] [place] [address], [id number], 09/09/2024 10:14:30 Trulicity 0.75 mg/0.5 mL subcutane ous pen injector 2023 [facility], [address] [place] [address], [id number], 09/09/2024 10:14:34 amlodipin e 10 mg tablet 2023 [facility], [address] [facility], [place], [address], 09/08/2024 17:12:32 lisinopri l 20 mg tablet 2023 [facility], [address] [facility], [place], [address], 09/08/2024 17:12:29 methocarb chava 500 mg tablet 2023 [facility], [address] [facility], [place], [address], 09/08/2024 17:12:31 tramadol 50 mg tablet 2023 [facility], [address] [place], [address], 09/09/2024 10:12:20 Patient TargetsNo targets recorded. Patient InstructionsNo instructions recorded. Reason for Referral Adjunct Psychology Professor Referral for Bilateral cataracts Referring Physician: Cherise Patrick [facility], Encounter Date: 09/08/2024 Head Golf Professional Referral for He art failure with normal ejection fraction Referring Physician: Cherise Patrick [facility], Encounter Date: 09/08/2024 Results Created Date Observation Date Name Description Value Unit Range Abnormal Flag Note LastModifiedBy Organization Detail LastModifiedTime 09/08/2009/08/2024 pregn shameka test, urine HCG negati ve Not Available In-Office Order Internal Use Only DO Not Attach Compendium DO Not Attach Compendium, Do Not Delete/merge, [id number] 09/08/2024 17:28:22 08/26/2008/25/2024 lab* No observ ation record ed. [address], [place], [address], 08/26/2024 15:11:26 08/26/20 24 08/25/2024 lab* No observ ation record ed. [email or web address], [place], [address], 08/26/2024 15:11:37 09/13/20 24 05/21/2023 US, echoc ardio gram, trans thora cic, compl ete, w/ color flow No observ ation record ed. BARCODE Not Available 2023 16:56:55 11/02/20 24 11/02/2024 XR, chest , 2 view No observ ation record ed. [address], [place], [address], 11/10/2024 14:17:28 11/10/19 25 11/10/2024 XR, chest , 1 view No observ ation record ed. [address], [place], [address], 11/10/2024 14:17:39 Result Notes None recorded. Problems Name Problem SNOMED Code Status Onset Date Resolution Date Notes Provider Name and Address Organization Details Recorded Time Diabetes mellitus 81477963 Active 2022 Betsey Jonas, INDUSTRY ANALYST null, [place] - [facility] 3 11:54:58 Hypertensiv e disorder 90513517 Active 2022 Betsey Sumi, INDUSTRY ANALYST [place], [place] [facility] 3 11:55:13 Edema 393422359 Active 2022 Betsey Sumi, INDUSTRY ANALYST [place], [place] [facility] 3 11:55:38 Uncontrolle d type 2 diabetes mellitus 340471642 Active 2022 MAURICIO OSWALD Attn: Accountin g,[address] [facility], [place], [address], [place] - [facility] 3 12:02:47 Amputated left lower limb below knee 165485891 Active 2022 MAURICIO OSWALD Attn: Accountin g,[address] [facility], [place], [address], [place] [facility] 3 12:02:50 Essential hypertensio n 57168710 Active 2022 MAURICIO OSWALD Attn: Tylor valerio,[address], [place], [address], [place] - [facility] 3 12:02:48 Hospital inpatient stay within past 30 days [id number] Active 2022 MAURICIO OSWALD Attn: Tylor valerio,[address], [place], [address], [place] - [facility] 3 15:00:27 Glaucoma 78586886 Active 2022 MAURICIO OSWALD Attn: Tylor valerio,[address], [place], [address], [place] - [facility] 3 16:32:50 Problem Notes None recorded. Medical Equipment None Reported. Allergies No known drug allergies Medications Name Sig Start Date Stop Date Status Note LastModified by Organization Details LastModified Time furosemid e 40 mg tablet TAKE 1 TABLET BY MOUTH ONCE DAILY IN THE MORNING active Not Available Not Available No t Available methocarb chava 500 mg tablet Take 1 tablet every 8 hours by oral route as needed for 30 days, for muscle spasm. 2023 active Not Available Not Available Not Avai lable metformin 500 mg tablet Take 1 tablet twice a day by oral route with meals for 90 days. 09/08 completed Not Available Not Available Not Available carvedilo l 25 mg tablet TAKE 1 TABLET BY MOUTH TWICE DAILY DIRECTED 2023 active Not Available Not Available Not Avai lable venlafaxi ne ER 37.5 mg capsule,e xtended release 24 hr TAKE 1 CAPSULE BY MOUTH ONCE DAILY 01/30 completed Not Available Not Available Not Available carvedilo l 12.5 mg tablet TAKE 1 TABLET BY MOUTH TWICE DAILY WITH MEALS 09/08 completed Not Available Not Available Not Available loperamid e 2 mg capsule 03/20 completed Not Available Not Available Not Available hydrocodo ne 5 mg-acetam inophen 325 mg tablet TAKE 1 TABLET BY MOUTH EVERY 4 HOURS NEEDED FOR PAIN (SCALE 7-10) 01/30 completed Not Available Not Available Not Available lisinopri l 20 mg tablet TAKE 1 TABLET BY MOUTH ONCE DAILY IN THE MORNING active Not Available Not Available No t Available Lantus U-100 Insulin 100 unit/mL subcutane ous solution INJECT 10 UNITS SUBCUTAN EOUSLY AT BEDTIME 09/08 completed penitentiary took her off. Not Available Not Available Not Available potassium chloride ER 10 mEq tablet,ex tended release TAKE 1 TABLET BY MOUTH ONCE DAILY 03/20 completed Not Available Not Available Not Available sulfameth oxazole 800 mg-trimet hoprim 160 mg tablet 01/30 completed Not Available Not Available Not Available tramadol 50 mg tablet TAKE 1 TABLET BY MOUTH EVERY 6 TO 8 HOURS NEEDED FOR RIGHT SHOULDER PAIN active Not Available Not Available No t Available vancomyci n 1,000 mg intraveno us injection active Not Available Not Available No t Available clonidine HCl 0.2 mg tablet TAKE 1 TABLET BY MOUTH TWICE DAILY 09/08 completed Not Available Not Available Not Available potassium chloride ER 20 mEq tablet,ex tended release(p art/cryst ) 09/08 completed Not Available Not Available Not Available amlodipin e 10 mg tablet TAKE 1 TABLET BY MOUTH ONCE DAILY IN THE MORNING active Not Available Not Available No t Available doxycycli ne monohydra te 100 mg capsule TAKE 1 CAPSULE BY MOUTH TWICE DAILY FOR 10 DAYS 03/20 completed Not Available Not Available Not Available losartan 25 mg tablet 09/08 completed Not Available Not Available Not Available brimonidi ne 0.2 % eye drops INSTILL 1 DROP INTO LEFT EYE THREE TIMES DAILY 09/08 completed Not Available Not Available Not Available docusate sodium 100 mg capsule TAKE 1 CAPSULE BY MOUTH TWICE DAILY 01/31 completed Not Available Not Available Not Available gabapenti n 300 mg capsule TAKE 1 CAPSULE (300 MG) BY MOUTH FRIDAY, Y, FRIDAY FOR 30 DAYS 2023 active Not Available Not Available Not Avai lable gentamici n 0.1 % topical cream APPLY TO RIGHT LEG WOUNDS ONLY DAILY AND NEEDED 09/08 completed Not Available Not Available Not Available dorzolami de 22.3 mg-timolo l 6.8 mg/mL eye drops INSTILL 1 DROP INTO LEFT EYE THREE TIMES DAILY 09/08 completed Not Available Not Available Not Available mupirocin 2 % topical ointment APPLY OINTMENT TOPICALL Y ONCE DAILY 09/08 completed Not Available Not Available Not Available furosemid e 20 mg tablet TAKE 1 TABLET BY MOUTH ONCE DAILY 09/08 completed Not Available Not Available Not Available gabapenti n 100 mg capsule TAKE 1 CAPSULE BY MOUTH THREE TIMES DAILY 01/30 completed Not Available Not Available Not Available nystatin 100,000 unit/gram topical powder APPLY TOPICALL Y THREE TIMES DAILY 03/20 completed Not Available Not Available Not Available insulin lispro (U-100) 100 unit/mL subcutane ous solution INJECT 5 UNITS SUBCUTAN EOUSLY WITH MEALS 03/20 completed Not Available Not Available Not Available levofloxa dali 750 mg tablet TAKE 1 TABLET BY MOUTH ONCE DAILY FOR 10 DAYS 01/30 completed Not Available Not Available Not Available ferrous sulfate 325 mg (65 mg iron) tablet,de layed release TAKE 1 TABLET BY MOUTH ONCE DAILY 01/31 completed Not Available Not Available Not Available timolol maleate 0.5 % eye drops INSTILL 1 DROP INTO LEFT EYE THREE TIMES DAILY 09/08 completed Not Available Not Available Not Available ketoconaz ole 2 % topical cream APPLY TOPICALL Y DAILY 09/08 completed Not Available Not Available Not Available fluoxetin e 20 mg capsule TAKE 1 CAPSULE BY MOUTH ONCE DAILY 01/30 completed Not Available Not Available Not Available dorzolami de 2 % eye drops INSTILL 1 DROP IN LEFT EYE THREE TIMES DAILY 09/08 completed Not Available Not Available Not Available nitrofura ntoin monohydra te/macroc rystals 100 mg capsule 01/30 completed Not Available Not Available Not Available acetamino phen active Not Available Not Available Not Available FeroSul 325 mg (65 mg iron) tablet TAKE 1 TABLET BY MOUTH ONCE DAILY BEFORE MEAL(S) FOR 30 DAYS active Not Available Not Available No t Available oxycodone 10 mg tablet Take 1 tablet every 4 hours by oral route. 09/08 completed Not Available Not Available Not Available Senexon-S 8.6 mg-50 mg tablet Take 2 tablets every day by oral route as needed for 30 days, for constipa tion. 2023 active Not Available Not Available Not Avai lable Thera-M 9 mg iron-400 mcg tablet TAKE 1 TABLET BY MOUTH ONCE DAILY 09/08 completed Not Available Not Available Not Available OneTouch Verio test strips USE 1 STRIP TO CHECK GLUCOSE TWICE DAILY 09/08 completed Not Available Not Available Not Available lidocaine 0.5 %-me.sali cyl 20 %-capsai 0.035 %-menth 5 % topical patch 09/08 completed Not Available Not Available Not Available polyethyl sumeet glycol (bulk) 100 % powder 09/08 completed Not Available Not Available Not Available Eliquis 5 mg tablet TAKE 1 TABLET BY MOUTH TWICE DAILY DIRECTED active Not Available Not Available No t Available Trulicity 1.5 mg/0.5 mL subcutane ous pen injector INJECT 1 SYRINGE SUBCUTAN EOUSLY ONCE A WEEK 09/08 completed Not Available Not Available Not Available Trulicity 0.75 mg/0.5 mL subcutane ous pen injector INJECT 1 SYRINGE SUBCUTAN EOUSLY ONCE A WEEK 2023 active Not Available Not Available Not Avai lable OneTouch Delica Plus Lancet 33 gauge USE 1 TO CHECK GLUCOSE TWICE DAILY 09/08 completed Not Available Not Available Not Available Slynd 4 mg (28) tablet TAKE 1 TABLET BY MOUTH ONCE DAILY DIRECTED active Not Available Not Available No t Available OneTouch Verio Reflect Meter 09/08 completed Not Available Not Available Not Available Vitals Date Recorded Oxygen saturation Oxygen saturation in Arterial blood by Pulse oximetry Heart rate Systolic blood pressure Diastolic blood pressure Provider Name and Address Organization Details Last Updated DateTime 4 99 % 99 % 89 /min 186 mm[Hg] 114 mm[Hg] Yamileth Fournier [facility] 4 16:46:14 Date Recorded Respiratory rate Systolic blood pressure Diastolic blood pressure Provider Name and Address Organization Details Last Updated DateTime 09/08/2024 18 /min 180 mm[Hg] 110 mm[Hg] MAURICIO OSWALD Attn: [address] [place], [address], [facility] 09/09/2024 10:10:08 Social History Question Answer Notes LastModified by Organizat ion Details LastModified Time Tobacco Smoking Status Former Smoker quit 2002 Betsey Jonas CMA [facility], [facility] 01/30/2023 11:53:19 What Is Your Level Of Alcohol Consumption? Occasional Information not available 01/30/2023 What Is Your Level Of Caffeine Consumption? Moderate Information not available 01/30/2023 What Was The Date Of Your Most Recent Tobacco Screening? 03/20/2023 Information not available 03/20/2023 Do You Use Any Illicit Or Recreational Drugs? No Information not available 01/30/2023 Has Tobacco Cessation Counseling Been Provided? No Information not available 01/30/2023 Do You Or Have You Ever Used Any Other Forms Of Tobacco Or Nicotine? No Information not available 01/30/2023 Sex: Unknown Functional Status None recorded. Mental Status None recorded. Family History Nothing Reported. Medical History Condition Response Coronary Artery Disease N Other N Atrial Fibrillation N High Blood Pressure Y Kidney or Bladder Problems N Thyroid Problems N GI Problems N Depression N COPD N Blood Clots N Eating Disorder N Skin Problems N Anemia N Heart Attack (SD) N Anxiety Disorder N Diabetes Y Muscle, Joint, or Bone Problems N Seizures/Epilepsy N Acid Reflux (GERD) N Cancer N Stroke N Asthma N Allergies Y ADHD N Substance Abuse N High Cholesterol N Hepatitis N Liver Disease N Schizophrenia N Headaches N Osteoporosis N Heart Failure N Gynecological History Statement/Question Response Menses Monthly Y Current Control Method None Date of LMP 01/10/2023 LMP Approximate Obstetrics History GPAL:G 0 P 0 0 0 0 Past Encounters Encounter ID Performer Location Encounter Start Date Encounter Closed Date Diagnosis/Indication Diagnosis SNOMED-CT Code Diagnosis ICD10 Code Diagnosis Note [id number] MAURICIO OSWALD [facility] [address] [place] [address] 09/08/2024 16:37:58 09/08/2024 17:18:03 Hospital inpatient stay within past 30 days [id number] 106 Z76.89 Admitted to [facility] 08/26/24 to 09/01/24 Right shoulder pain and swellingHi story of septic arthritis/ ostemyelit is of Both shoulderMR SA bacteremia , multiple soft tissue abscesses- Synovial fluid analysis in the ED showing bloody red fluid with 3,700 total nucleated cells 83% neutrophil s,- ortho has low concern for active septic arthritis given these studies and patient's ROM on exam.- Immunoglob ulin studies ordered in 2021 with mildly reduced IgG to 663 (normal 700-1600). -consulted ID, recommenda tion- Continue vancomycin (anticipat ed EOT 09/10/24)- Orthopedic s Ok to resume Eliquis.- MRI Rt shoulder wwo contrast-, anterior soft tissue fluid collection with gas concerning for abscess, appears to communicat e with glenohumer al joint space-IR was consulted, drain placed on 08/30.IR recommenda tion-Keep catheter open for external drainage, and record daily catheter output.Flu sh the catheter with 10 mL saline Q 8 hrs.Keep dressing clean and dry at all times. Change dressing Q 24-48 hours. Change dressing earlier if it becomes wet or soiled.If the output falls below 5 mL/day for three consecutiv e days, please call IR to schedule the patient for a tube check to evaluate for possible reposition ing/remova l.Contact IR if the catheter stops draining, if there is pericathet er leakage, or if the catheter is inadverten tly pulled out.T2DM with diabetic retinopath y, nephropath y, peripheral neuropathy Right plantar diabetic foot wound, POALast A1c 7.4%- wound consulted for R foot wound careESRD on HD MWFAnemia of chronic disease- Nephrology consulted for HDfollows with Dr. Leslie diane of provoked DVT 07/30plan for 3 months AC, started during last admission, however patient has been off since 08/09, unable to fill Rx- Eliquis 5 mg bidPVDR heel ulcerHTNHL DAnemiaHFp EF- last TTE 07/30/24 showing normal LV systolic function prior study 05/2024 demonstrat ed grade II diastolic dysfunctio n- carvedilol to 25 mg bid, lisinopril to 40 mg daily, and continue home amlodipine 10 mg daily Advised pt to call IR/Vascula r at [facility] for follow-up about R shoulder drain Heart fail ure with normal ejection fraction 950378017 I50.30 09/08/24:HF pEF- last TTE 07/30/24 showing normal LV systolic function prior study 05/2024 demonstrat ed grade II diastolic dysfunctio n- carvedilol to 25 mg bid, lisinopril to 40 mg daily, and continue home amlodipine 10 mg dailyrefer to cardio 5/18/23:Sa w cardio 03/18, Dr. Menedz, labs requested per Dr. Sandy arteaga stress test, started her on potassium 20, losartan 25, furosemide 20has f/u appt 04/22/23 02/14/23:Mauricio esther and sister report never getting a call from cardiology . Given referral so they can contact the office. 01/30/23:Ca rdiology referralpt reports she was never told she has heart failurewas discharged on lasix 80unknown Cr, elevated during admissionw ill refill at 40 mg Per hospital admission 08/2022: # Heart Failure with Preserved Ejection FractionPa esther developed worsening SOB in the setting of IV fluids.-Et iology of HFpEF likely prolonged period of uncontroll ed HTN. Class 3 obesity compoundin g her HFpEF.-CXR reveals Cardiomega ly and diffuse b/l pulmonary congestion with a possible pleural effusion-W ill continue IV lasix 40mg 08/24 considerin g good response, and still requiring some oxygen and pedal edema.- Possibly transition to PO on 08/25 and DC to IP BHU-Coreg 12.5 BID Essential hypertension [id number] I10 09/08/24: did not take meds today, BP 180/110 x2 03/20/23:BP 144/86card io started losartan 25on amlodipine 10 and carvedilol 12.5 BIDdid not take meds 02/14/23:BP 140/92did not take meds yet 01/30/23:ou t of medsBP today 146/94f/u in 2 wks Diabetic p eripheral neuropathy 085016309 E11.40 refill Acute deep venous thrombosis of right upper extremity [id number] 27700 I82.621 R shoulderre fill Chronic constipation 236 072423 K59.09 refill Pain of ri ght shoulder joint [id number] 8952296 M25.511 septic arthritisr equesting oxycodone refilldisc ussed with pt would not be filling pain medication s long termwill give script of tramadol, future referral to PMrefill methocarba mol Difficulty sleeping 3013 21364 Z72.820 requesting trazodone to help her sleep, can interact with Eliquisno relief with OTC meds Contraception care 03160 5005 Z30.40 last period 07/2024 and wants to regulate cyclesurin e preg negativewi ll send slynd Bilateral cataracts 9572 2003 [facility].9 [facility] ed type 2 diabetes mellitus 034610334 E11.65 09/08/24: a1c inpatient 7.4%wants to re-start trulicitym icroalbumi n pending 03/20/23:we nt to hospital 02/12/23, stopped metformin due to nausea, vomiting, and diarrheawa nts to try injection medicine for DM5 units insulin at bedtimeBS 130s-170ss top insulintri al trulicityf /u in 1 mo with BS logroutine labs, cardio requesting 02/14/23:BS post prandial 130-260sst op insulinsta rt metformin 1000Check Lipid panel, CMP, TSH, and FT4f/u in 1 mo with BS log 01/30/23:di agnosed age 18Hgb a1c 11.7 on 08/22/22a1 c 6.7 in hospitala1 c today 5.6on SA insulin with meals 5 units, and lantus 5 units at bedtimehas been on PO meds in the pastrecord BS logf/u in 2 wks Depression screening 171 832872 Z13.31 PHQ 0 Health Concerns Section Related Observation LastModified by Organization Detai ls LastModified Time None Recorded Concern Status LastModified by Organization Details LastModified Time None Recorded Payers Encounter Date Sequence Insurance Name Policy Number Policy Bobo Covered Member ID Bobo Member ID Guarantor Name 09/08/2024 1 [facility] (MEDICAID HMO) [id number] Gay Canales [id number] Gay Canales Notes Date Note Type Note Provider Name and Address Organization Details Recorded Time 09/08/2024 text/html Pt presents to re-establish care. Last OV 03/2023. Most recent hospitalization was due to septic R shoulder and currently has drain. States that she was in a penitent[facility] for the past year. Requesting med refills. MAURICIO OSWALD Attn: Accounting,[address] [facility], [place], [address], [facility] 09/09/2024 10:20:36 OBGyn Episode No OBEpisode recorded.
--- OUTSIDE RECORDS SUMMARY | 2024-11-17 03:15 | XMS_ITS | Data Portability ---
Author Organization [place] - [facility] OFFICE Address [address] [place] [address] Assessment Encounter Date Assessment Date Assessment LastModified by Organization Details LastModified Time 03/18/2023 03/18/2023 Patient Examined by TREVOR Savage, Also Documentation reviewed and approved by supervising physician bang Not available 03/18/2023 16:51:36 Plan of Treatment Reminders Order Date Submit Date Provider Last Modified By Organization Details Last Modified Time Details Appointments None recorded. Lab None recorded. Referral None recorded. Procedures None recorded. Surgeries None recorded. Imaging electrocard iogram 2022 023 [facility], [facility] [place], [address], 3 16:58:23 Medication Orders potassium chloride ER 20 mEq tablet,exte nded release 2022 023 [facility] [address] [place], [address], 3 17:02:16 Lasix 20 mg tablet 2022 023 [facility] [address] [place], [address], 3 17:02:18 losartan 25 mg tablet 2022 023 [facility] [address] [place], [address], 3 17:02:17 Patient TargetsNo targets recorded. Patient Instructions Encounter Date Encounter Id Patient Instructions Last Modified By Organization Details Last Modified Time 03/18/2023 [id number] type 2 diabetes: care instructions [email or web address] Not available 03/18/2023 17:02:09 Low cholesterol diet advised Low sodium diet advised. eyassin Not available 03/18/2023 17:02:04 Reason for Referral None Reported. Results Created Date Observation Date Name Description Value Unit Range Abnormal Flag Note LastModifiedBy Organization Detail LastModifiedTime 03/24/20 23 03/18/2023 elect syed diogr am No observ ation record ed. [email or web address] Not Available 2022 13:58:17 Result Notes None recorded. 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 Procedures Surgical History Date Name Laterality Status Provider Name and Address Organization Details Recorded Time 01/31/20 amputation of left lower limb completed Mike Moses [place] - [facility] 03/05/2023 13:07:39 Imaging Results Imaging Date Name Status LastModified by Organization Details LastModified Time 03/18/2023 electrocardiogram completed [email or web address] Informa tion not available 03/24/2023 13:58:17 Procedure Notes None recorded. Medical Equipment None Reported. Allergies No known drug allergies Medications Name Sig Start Date Stop Date Status Note LastModified by Organization Details LastModified Time furosemide 40 mg tablet TAKE 1 TABLET BY MOUTH ONCE DAILY FOR 30 DAYS active Not Available Not Available No t Available metformin 500 mg tablet Take 1 tablet twice a day by oral route with meals for 90 days. active Not Available Not Available No t Available venlafaxine ER 37.5 mg capsule,ext ended release 24 hr TAKE 1 CAPSULE BY MOUTH ONCE DAILY 03/18 completed Not Available Not Available Not Available carvedilol 12.5 mg tablet TAKE 1 TABLET BY MOUTH TWICE DAILY WITH MEALS active Not Available Not Available No t Available loperamide 2 mg capsule TAKE 1 CAPSULE BY MOUTH 4 TIMES DAILY NEEDED DIARRHEA active Not Available Not Available No t Available hydrocodone 5 mg-acetamin ophen 325 mg tablet TAKE 1 TABLET BY MOUTH EVERY 4 HOURS NEEDED FOR PAIN (SCALE 7-10) active Not Available Not Available No t Available Lantus U-100 Insulin 100 unit/mL subcutaneou s solution INJECT 10 UNITS SUBCUTANE OUSLY AT BEDTIME active Not Available Not Available No t Available potassium chloride ER 10 mEq tablet,exte nded release TAKE 1 TABLET BY MOUTH ONCE DAILY 03/18 completed Not Available Not Available Not Available potassium chloride ER 20 mEq tablet,exte nded release(par t/cryst) TAKE 1 BY MOUTH ONCE DAILY active Not Available Not Available No t Available amlodipine 10 mg tablet TAKE 1 TABLET BY MOUTH ONCE DAILY IN THE MORNING FOR 30 DAYS active Not Available Not Available No t Available doxycycline monohydrate 100 mg capsule TAKE 1 CAPSULE BY MOUTH TWICE DAILY FOR 10 DAYS active Not Available Not Available No t Available losartan 25 mg tablet TAKE 1 TABLET BY MOUTH ONCE DAILY active Not Available Not Available No t Available brimonidine 0.2 % eye drops INSTILL 1 DROP INTO LEFT EYE THREE TIMES DAILY active Not Available Not Available No t Available docusate sodium 100 mg capsule TAKE 1 CAPSULE BY MOUTH TWICE DAILY active Not Available Not Available No t Available gentamicin 0.1 % topical cream APPLY TO RIGHT LEG WOUNDS ONLY DAILY AND NEEDED active Not Available Not Available No t Available dorzolamide 22.3 mg-timolol 6.8 mg/mL eye drops INSTILL 1 DROP INTO LEFT EYE THREE TIMES DAILY active Not Available Not Available No t Available mupirocin 2 % topical ointment APPLY OINTMENT TOPICALLY ONCE DAILY active Not Available Not Available No t Available furosemide 20 mg tablet TAKE 1 TABLET BY MOUTH ONCE DAILY active Not Available Not Available No t Available gabapentin 100 mg capsule TAKE 1 CAPSULE BY MOUTH THREE TIMES DAILY 03/18 completed Not Available Not Available Not Available nystatin 100,000 unit/gram topical powder APPLY TOPICALLY THREE TIMES DAILY active Not Available Not Available No t Available insulin lispro (U-100) 100 unit/mL subcutaneou s solution INJECT 5 UNITS SUBCUTANE OUSLY WITH MEALS active Not Available Not Available No t Available levofloxaci n 750 mg tablet TAKE 1 TABLET BY MOUTH ONCE DAILY FOR 10 DAYS active Not Available Not Available No t Available ferrous sulfate 325 mg (65 mg iron) tablet,sterling yed release TAKE 1 TABLET BY MOUTH ONCE DAILY 03/18 completed Not Available Not Available Not Available timolol maleate 0.5 % eye drops INSTILL 1 DROP INTO LEFT EYE THREE TIMES DAILY active Not Available Not Available No t Available ketoconazol e 2 % topical cream APPLY TOPICALLY DAILY active Not Available Not Available No t Available fluoxetine 20 mg capsule TAKE 1 CAPSULE BY MOUTH ONCE DAILY active Not Available Not Available No t Available amoxicillin 875 mg-potassiu m clavulanate 125 mg tablet 03/18 completed Not Available Not Available Not Available dorzolamide 2 % eye drops INSTILL 1 DROP IN LEFT EYE THREE TIMES DAILY active Not Available Not Available No t Available furosemide 10mg once daily active Not Available Not Available No t Available FeroSul 325 mg (65 mg iron) tablet TAKE 1 TABLET BY MOUTH ONCE DAILY BEFORE MEAL(S) FOR 30 DAYS 03/18 completed Not Available Not Available Not Available Thera-M 9 mg iron-400 mcg tablet TAKE 1 TABLET BY MOUTH ONCE DAILY active Not Available Not Available No t Available OneTouch Verio test strips USE 1 STRIP TO CHECK GLUCOSE TWICE DAILY active Not Available Not Available No t Available OneTouch Verio test strips 03/18 completed Not Available Not Available Not Available potassium chloride ER 20 mEq tablet,exte nded release Take 1 tablet every day by oral route. 2022 active Not Available Not Available Not Avai lable Trulicity 1.5 mg/0.5 mL subcutaneou s pen injector INJECT 1 SYRINGE SUBCUTANE OUSLY ONCE A WEEK active Not Available Not Available No t Available Trulicity 0.75 mg/0.5 mL subcutaneou s pen injector INJECT 0.75 MG EVERY WEEK BY SUBCUTANE OUS ROUTE DIRECTED FOR 30 DAYS active Not Available Not Available No t Available OneTouch Delica Plus Lancet 33 gauge USE 1 TO CHECK GLUCOSE TWICE DAILY active Not Available Not Available No t Available OneTouch Verio Reflect Meter active Not Available Not Available Not Available OneTouch Verio Reflect Meter active Not Available Not Available Not Available Vitals Date Recorded Body weight Body mass index (BMI) Body height Heart rate Oxygen saturation Oxygen saturation in Arterial blood by Pulse oximetry Systolic blood pressure Diastolic blood pressure Provider Name and Address Organization Details Last Updated DateTime 3 008734. 34 g 50.6 kg/m2 170.18 cm 71 /min 87 % 87 % 150 mm[Hg] 100 mm[Hg] Joseph Moses [facility] 3 16:35:36 Social History Question Answer Notes LastModified by Organizat ion Details LastModified Time Tobacco Smoking Status Never Smoker Mike Moses [facility] 03/05/2023 13:06:35 What Is Your Level Of Alcohol Consumption? Occasional Information not available 03/05/2023 Are You Blind Or Do You Have Difficulty Seeing? Yes Information n ot available 03/18/2023 What Is Your Level Of Caffeine Consumption? Moderate Information not available 03/05/2023 In The 14 Days Before Symptom Onset, Have You Had Close Contact With A Laboratory-confirm ed COVID-19 While That Case Was Ill? No Information n ot available 03/05/2023 In The 14 Days Before Symptom Onset, Have You Had Close Contact With A Person Who Is Under Investigation For COVID-19 While That Person Was Ill? No Information not available 03/05/2023 Have You Been To An Area Known To Be High Risk For COVID-19? No Information not available 03/05/2023 Are You Deaf Or Do You Have Serious Difficulty Hearing? No Information not available 03/18/2023 What Type Of Diet Are You Following? REGULAR Information n ot available 03/18/2023 Have You Processed Blood Or Body Fluids From An Ebola Virus Disease Patient Without Appropriate PPE? No Information not available 03/05/2023 Do You Reside In Or Have You Traveled To An Area Where Ebola Virus Transmission Is Active? No Information not available 03/05/2023 What Is The Highest Grade Or Level Of School You Have Completed Or The Highest Degree You Have Received? [id number] Information not available 03/05/2023 Are There Any Guns Present In Your Home? No Information not available 03/18/2023 What Was The Date Of Your Most Recent Tobacco Screening? 01/30/2023 Information not available 03/05/2023 How Many Children Do You Have? -1 Information not available 03/18/2023 What Is Your Relationship Status? Unknown Information not available 03/18/2023 Do You Use Your Seat Belt Or Car Seat Routinely? Yes Information not available 03/18/2023 Are You Sexually Active? No Information not available 03/18/2023 Do You Have Smoke And Carbon Monoxide Detectors In Your Home? Yes Information not available 03/18/2023 Do You Feel Stressed (tense, Restless, Nervous, Or Anxious, Or Unable To Sleep At Night)? [id number] Information not available 03/18/2023 Do You Use Any Illicit Or Recreational Drugs? No Information not available 03/05/2023 Do You Use Sunscreen Routinely? No Information not available 03/18/2023 Do You Or Have You Ever Used Any Other Forms Of Tobacco Or Nicotine? No Information not available 03/05/2023 Sex: Unknown Functional Status Question Answer Note LastModified by Organizat ion Details LastModified Time Do you have difficulty walking or climbing stairs? Yes [place] (Left leg) Information not available 03/18/2023 Do you have difficulty doing errands alone? Yes Information not available 03/18/2023 Do you have difficulty dressing or bathing? Yes Information not available 03/18/2023 What is your exercise level? None Information not available 03/18/2023 Mental Status Question Answer Note LastModified by Organization D etails LastModified Time Do you have difficulty concentrating, remembering or making decisions? No Information no t available 03/18/2023 Family History Relationship Description Onset Age of this Age Resolved Age Notes LastModified by Organization Details LastModified Time Father Type 2 diabetes mellitus [email or web address] Not available 2022 16:09:27 Sister Type 2 diabetes mellitus [email or web address] Not available 2022 16:09:27 Mother History of hypertension [email or web address] Not available 16:09:46 Medical History Condition Response Diabetes Y Hypertension Y Gynecological History Statement/Question Response Menses Monthly Y Current Control Method None LMP Approximate Obstetrics History GPAL:G 0 P 0 0 0 0 Past Encounters Encounter ID Performer Location Encounter Start Date Encounter Closed Date Diagnosis/Indication Diagnosis SNOMED-CT Code Diagnosis ICD10 Code Diagnosis Note [id number] [facility] [place] OFFICE [address] [place] [address] 03/18/2023 14:45:35 03/18/2023 17:04:19 Essential hypertension 38773134 I10 elevated todayshe is taking amlodipin 10 mg and coreg 12.5 mg dailystart ing losartan 25 mg daily Type 2 jassi betes mellitus without complication 349030877 E11.9 controlled by PCP Dyspnea on exertion 6084 5006 R06.09 will do echo to see the structure of her heart Lexiscan Myoview stress test, pt can not walk. Has known coronary artery disease, with atypical symptoms now Edema of l ower extremity 506277793 R60.0 will start her on lasix 20 mg BID daily Health Concerns Section Related Observation LastModified by Organization Detai ls LastModified Time None Recorded Concern Status LastModified by Organization Details LastModified Time None Recorded Advance Directives Directive None Recorded Payers Encounter Date Sequence Insurance Name Policy Number Policy Bobo Covered Member ID Bobo Member ID Guarantor Name 03/18/2023 1 [id number] [facility] (MEDICAID REPLACEMENT - HMO) [id number] Gay Mata [id number] Gay Mata Notes Date Note Type Note Provider Name and Address Organization Details Recorded Time 03/18/2023 text/html 03/18/23CC: Abnormal EKGGay Edie MATA is a 32 years-old Female with h/o Hypertension, Diabetes mellitus , s/p amputation above the knee after gangrene , was referred for cardiac evaluation due to Congestive heart failure. She is here refrred by her PCP due to abnormal EKG, She denied chest pain or dyspnea on exertion. *Last LDL was done on .Pt takes. No orthopnea. No PNDs.Denies heart palpitations.Denie s dizziness. Denies syncope or near syncope.Yes ankle or leg edema.No major bleeding events.No reported side effects from medications. Taking medications as prescribed with no missed doses.Denies snoring, daytime somnolence and AM headache.*Last LDL was done on .Pt takes. ISAAC C[place] - [facility] 03/18/2023 17:02:13 OBGyn Episode No OBEpisode recorded.
--- OUTSIDE RECORDS SUMMARY | 2024-11-17 03:15 | XMS_ITS | Data Portability ---
Author Organization [facility] [place] [facility] Address [address] [place] [address] Assessment Encounter Date Assessment Date Assessment LastModified by Organization Details LastModified Time 01/30/2023 01/30/2023 Labs at f/u visit. [email or web address] Not available 01/31/2023 09:59:39 02/14/2023 02/14/2023 Sections of the HPI, exam and assessment completed by Zee Park, MAURICIO student and have been reviewed by me. I agree with the exam findings, assessment and plan except where specifically documented or amended. -Cherise Patrick, [facility], PAJose EnriqueC [email or web address] Not available 02/14/2023 15:04:33 09/08/2024 09/08/2024 Advised pt to f/u in 1 mo. [email or web address] Not available 09/09/2024 10:18:52 Plan of Treatment Reminders Order Date Submit Date Provider Last Modified By Organization Details Last Modified Time Details Appointments ANY 15 2024 02:00P David Jennings MD Not available Not available Not available Lab HbA1c (hemoglob in A1c), blood 2022 023 [email or web address] In-Office Order, Internal Use Only DO Not Attach Compendium DO Not Attach Compendium, Do Not Delete/merge, [id number] 01/30/2023 12:08:22 CMP, serum or plasma 2022 023 RIGOBERTO [facility], [address], [place], [address], 02/14/2023 13:01:01 lipid panel, serum 2022 023 RIGOBERTO Allen, [address], [address], [place], [address], 02/14/2023 13:01:00 TSH + free T4, serum 2022 023 RIGOBERTO Allen, [address], [address], [place], [address], 02/14/2023 13:01:01 iron + total iron-bind ing capacity (TIBC), serum 2022 023 RIGOBERTO Allen [address], [address], [place], [address], 02/14/2023 13:01:00 ferritin, serum or plasma 2022 023 RIGOBERTO Allen, [address], [address], [place], [address], 02/14/2023 13:01:00 CBC w/ auto diff 2022 023 RIGOBERTO Allen, [address], [address], [place], [address], 02/14/2023 13:01:00 pro BNP (pro B-type natriuret ic peptide), serum or plasma 2022 023 RIGOBERTO Allen, [address], [address], [place], [address], 03/21/2023 16:14:02 CMP, serum or plasma 2022 023 RIGOBERTO Allen, [address], [address], [place], [address], 03/21/2023 16:14:05 lipid panel, serum 2022 023 RIGOBERTO Allen [address], [address], [place], [address], 03/21/2023 16:14:04 CBC w/ auto diff 2022 023 [facility], [address], [address], [place], [address], 03/21/2023 16:14:08 TSH + free T4, serum 2022 023 [facility], [address], [address], [place], [address], 03/21/2023 16:14:03 CK (creatine kinase), total, serum 2022 023 [facility], [address], [address], [place], [address], 03/21/2023 16:14:07 test, urine 2023 024 [email or web address] In-Office Order, Internal Use Only DO Not Attach Compendium DO Not Attach Compendium, Do Not Delete/merge, [id number] 09/08/2024 17:28:33 microalbu min/creat inine, mass ratio, urine 2023 024 [facility], [address], [address], [place], [address], 09/10/2024 12:29:42 Referral cardiolog ist referral 2022 023 devon Suresh MD, [address] [facility] , [address], [place], [address], 03/14/2023 11:56:[address]-orthot ist referral 2022 023 devon [facility], [address] [place] [address] S, [address], [place], [address], 03/14/2023 11:57:44 wound care referral - h/o uncontrol led type [address] [facility], [address] [facility], [place], [address], 04/11/2023 09:30:31 home health referral 2022 023 [facility], [address] [facility], [facility] [address], [place], [address], 06/09/2023 12:01:50 cardiolog ist referral 2023 024 [email or web address] Mateo Ortiz MD, [address] [facility], [facility] [address], [place], [address], 09/23/2024 08:21:20 ophthalmo logist referral 2023 024 [email or web address] [facility], [address] [place] [address], [place], [address], 09/22/2024 08:07:09 Procedures None recorded. Surgeries None recorded. Imaging None recorded. Medication Orders furosemid e 40 mg tablet 2022 023 [facility], [address] [place], [address], 03/20/2023 14:42:42 amlodipin e 10 mg tablet 2022 023 [facility], [address] [place], [address], 01/31/2023 09:25:32 carvedilo l 12.5 mg tablet 2022 023 [facility], [address] [place], [address], 09/08/2024 16:54:17 ferrous sulfate 325 mg (65 mg iron) tablet 2022 023 [facility], [address] [place], [address], 01/31/2023 09:25:30 metformin 500 mg tablet [address] [facility], [address] [place] [address], [address], 09/08/2024 12:09:28 Trulicity 0.75 mg/0.5 mL subcutane ous pen injector [address] [facility], [address] [place] [address], [address], 09/08/2024 12:08:56 OneTouch Verio test strips [address] [facility], [address] [place] [address], [address], 09/08/2024 12:09:17 Eliquis 5 mg tablet [address] [facility] [address], [address] [place] [address], [address], 09/08/2024 17:27:56 Senexon-S 8.6 mg-50 mg tablet 2023 024 [place] [address], [address] [place] [address], [address], 09/08/2024 17:12:34 furosemid e 40 mg tablet 2023 024 [facility], [address] [place] [address], [address], 09/08/2024 17:12:40 carvedilo l 25 mg tablet 2023 024 [facility], [address] [place] [address], [address], 09/08/2024 17:12:33 gabapenti n 300 mg capsule 2023 024 [facility], [address] [place] [address], [address], 09/08/2024 17:12:36 Slynd 4 mg (28) tablet 2023 [facility] [address], [address] [place] [address], [address], 09/09/2024 10:14:30 Trulicity 0.75 mg/0.5 mL subcutane ous pen injector 2023 [facility] [address], [address] [place] [address], [address], 09/09/2024 10:14:34 amlodipin e 10 mg tablet 2023 [place] [address], [address] [place] [address], [address], 09/08/2024 17:12:32 lisinopri l 20 mg tablet 2023 [facility] [address], [address] [place] [address], [address], 09/08/2024 17:12:29 methocarb chava 500 mg tablet 2023 [facility] [address], [address] [place] [address], [address], 09/08/2024 17:12:31 tramadol 50 mg tablet 2023 [facility] [address], [address] [place] [address], [address], 09/09/2024 10:12:20 Patient TargetsNo targets recorded. Patient Instructions Encounter Date Encounter Id Patient Instructions Last Modified By Organization Details Last Modified Time 01/30/2023 [id number] I have reviewed the patient's medical record and the note from this clinical encounter. I was available by phone for the duration of the visit. I agree with the assessment and plan with the following addendum: A1C 5.6 can likely stop insulin. Edwin Call MD [email or web address] Not available 02/07/2023 15:32:30 Reason for Referral Certified Phlebotomy Technician Referral for He art failure with normal ejection fraction Referring Physician: Cherise Patrick [facility], Encounter Date: 01/30/2023 Spool Sorter-orthot ist Referral for Amputated left lower limb below knee Referring Physician: Family Compa Simpson, Encounter Date: 01/30/2023 h/o uncontrolled type 2 diab etes Referring Physician: Cherise Patrick [facility]a, Encounter Date: 02/14/2023 Home Health Referral for Amp utated left lower limb below knee Referring Physician: Family Compa Simpson, Encounter Date: 03/20/2023 Dev Ops Engineer Referral for Bilateral cataracts Referring Physician: Family Compa Simpson, Encounter Date: 09/08/2024 Certified Phlebotomy Technician Referral for He art failure with normal ejection fraction Referring Physician: Cherise Patrick [facility], Encounter Date: 09/08/2024 Results Created Date Observation Date Name Description Value Unit Range Abnormal Flag Note LastModifiedBy Organization Detail LastModifiedTime 01/31/2001/30/2023 HbA1c (hemo globi n A1c), blood HbA1c 5.6 Not Available In-Office Order Internal Use Only DO Not Attach Compendium DO Not Attach Compendium, Do Not Delete/merge, [id number] 01/30/2023 12:02:12 03/20/2003/21/2023 NT-MN OBNP nt-probnp 2423 pg/mL 0-130 above high normal The follo wing cut-p oints have been sugge sted for the use of proBN P for the diagn ostic evalu ation of heart failu re (HF) in patie nts with acute dyspn ea: Modal ity Age Optim al Cut (year s) Point ----- ----- ----- ----- ----- ----- ----- ----- ----- ----- ---- Diagn osis (rule in HF) <50 450 pg/mL 50 - 75 900 pg/mL >75 1800 pg/mL Exclu arjun (rule out HF) Age indep enden t 300 pg/mL Not Available [facility] ([facility]) [address] [place], [address], 03/21/2023 16:14:02 03/20/20 23 03/21/2023 TSH+F REE T4 TSH 10.100 uIU/m L 0.450- 4.500 above high normal Not Available [facility] ([facility]) [address] [place], [address], 03/21/2023 16:14:03 03/20/20 23 03/21/2023 TSH+F REE T4 T4,free(dire ct) 1.04 NG/dL 0.82-1 .77 Not Available [facility] ([facility]) [address] [place], [address], 03/21/2023 16:14:03 03/20/20 23 03/21/2023 LIPID PANEL WITH LDL/H DL RATIO cholesterol, total 164 mg/dL 100-19 9 Not Available [facility] ([facility]) [address] [place], [address], 03/21/2023 16:14:04 03/20/20 23 03/21/2023 LIPID PANEL WITH LDL/H DL RATIO triglyceride s 56 mg/dL 0-149 Not Available [facility] ([facility]) [address] [place], [address], 03/21/2023 16:14:04 03/20/20 23 03/21/2023 LIPID PANEL WITH LDL/H DL RATIO HDL cholesterol 76 mg/dL >39 Not Available [facility]) [address] [place], [address], 03/21/2023 16:14:04 03/20/20 23 03/21/2023 LIPID PANEL WITH LDL/H DL RATIO VLDL cholesterol aly 11 mg/dL 5-40 Not Available [facility] ([facility]) [address] [place], [address], 03/21/2023 16:14:04 03/20/20 23 03/21/2023 LIPID PANEL WITH LDL/H DL RATIO LDL chol calc ([facility]) 77 mg/dL 0-99 Not Available [facility] ([facility]) [address] [place], [address], 03/21/2023 16:14:04 03/20/20 23 03/21/2023 LIPID PANEL WITH LDL/H DL RATIO LDL/HDL ratio 1.0 ratio 0.0-3. 2 LDL/H DL Ratio Men Women 1/2 Avg.R isk 1.0 1.5 Avg.R isk 3.6 3.2 2X Avg.R isk 6.2 5.0 3X Avg.R isk 8.0 6.1 Not Available [facility] ([facility]) [address] [place], [address], 03/21/2023 16:14:04 03/20/20 23 03/21/2023 COMP. METAB OLIC PANEL (14) glucose 110 mg/dL 70-99 above high normal Not Available [facility] ([facility]) [address] [place], [address], 03/21/2023 16:14:05 03/20/20 23 03/21/2023 COMP. METAB OLIC PANEL (14) BUN 11 mg/dL 6-20 Not Available [facility] ([facility]) [address] [place], [address], 03/21/2023 16:14:05 03/20/20 23 03/21/2023 COMP. METAB OLIC PANEL (14) creatinine 1.37 mg/dL 0.57-1 .00 above high normal Not Available [facility] ([facility]) [address] [place], [address], 03/21/2023 16:14:05 03/20/20 23 03/21/2023 COMP. METAB OLIC PANEL (14) eGFR 53 mL/mi n/1.7 3 >59 below low normal Not Available [facility] ([facility]) [address] [facility] [address], [place], [address], 03/21/2023 16:14:05 03/20/20 23 03/21/2023 COMP. METAB OLIC PANEL (14) BUN/creatini ne ratio 8 9-23 below low normal Not Available [facility] ([facility]) [address] [facility], [place], [address], 03/21/2023 16:14:05 03/20/20 23 03/21/2023 COMP. METAB OLIC PANEL (14) sodium 142 mmol/ L 134-14 4 Not Available [facility] ([facility]) [address] [facility], [place], [address], 03/21/2023 16:14:05 03/20/20 23 03/21/2023 COMP. METAB OLIC PANEL (14) potassium 3.6 mmol/ L 3.5-5. 2 Not Available [facility] ([facility]) [address] [facility], [place], [address], 03/21/2023 16:14:05 03/20/20 23 03/21/2023 COMP. METAB OLIC PANEL (14) chloride 108 mmol/ L 96-106 above high normal Not Available [facility] ([facility]) [address] [place], [address], 03/21/2023 16:14:05 03/20/20 23 03/21/2023 COMP. METAB OLIC PANEL (14) carbon dioxide, total 23 mmol/ L 20-29 Not Available [facility] ([facility]) [address] [place], [address], 03/21/2023 16:14:05 03/20/20 23 03/21/2023 COMP. METAB OLIC PANEL (14) calcium 8.0 mg/dL 8.7-10 .2 below low normal Not Available [facility] ([facility]) [address] [place], [address], 03/21/2023 16:14:05 03/20/20 23 03/21/2023 COMP. METAB OLIC PANEL (14) protein, total 5.6 g/dL 6.0-8. 5 below low normal Not Available [facility] ([facility]) [address], [place], [address], 03/21/2023 16:14:05 03/20/20 23 03/21/2023 COMP. METAB OLIC PANEL (14) albumin 2.2 g/dL 3.9-5. 0 below low normal Not Available [facility] ([facility]) [address] [place], [address], 03/21/2023 16:14:05 03/20/20 23 03/21/2023 COMP. METAB OLIC PANEL (14) globulin, total 3.4 g/dL 1.5-4. 5 Not Available [facility] ([facility]) [address] [place], [address], 03/21/2023 16:14:05 03/20/20 23 03/21/2023 COMP. METAB OLIC PANEL (14) A/G ratio 0.6 1.2-2. 2 below low normal Not Available [facility] ([facility]) [address] [facility] [place], [address], 03/21/2023 16:14:05 03/20/20 23 03/21/2023 COMP. METAB OLIC PANEL (14) bilirubin, total 0.2 mg/dL 0.0-1. 2 Not Available [facility] ([facility]) [address] [facility], [place], [address], 03/21/2023 16:14:05 03/20/20 23 03/21/2023 COMP. METAB OLIC PANEL (14) alkaline phosphatase 409 IU/L 44-121 above high normal Not Available [facility] ([facility]) [address] [facility] [place], [address], 03/21/2023 16:14:05 03/20/20 23 03/21/2023 COMP. METAB OLIC PANEL (14) AST (SGOT) 32 IU/L 0-40 Not Available [facility] ([facility]) [address] [facility] [place], [address], 03/21/2023 16:14:05 03/20/20 23 03/21/2023 COMP. METAB OLIC PANEL (14) ALT (SGPT) 32 IU/L 0-32 Not Available [facility] ([facility]) [address] [facility] [place], [address], 03/21/2023 16:14:05 03/20/20 23 03/21/2023 CK creatine kinase,total 443 U/L 32-182 above high normal Not Available [facility] ([facility]) [address] [facility] [place], [address], 03/21/2023 16:14:07 03/20/20 23 03/21/2023 CBC WITH DIFFE RENTI AL/PL ATELE T WBC 6.0 x10e3 /uL 3.4-10 .8 Not Available [facility] ([facility]) [address] [place], [address], 03/21/2023 16:14:08 03/20/20 23 03/21/2023 CBC WITH DIFFE RENTI AL/PL ATELE T RBC 3.69 x10e6 /uL 3.77-5 .28 below low normal Not Available [facility] ([facility]) [address] [facility] [place], [address], 03/21/2023 16:14:08 03/20/20 23 03/21/2023 CBC WITH DIFFE RENTI AL/PL ATELE T hemoglobin 9.8 g/dL 11.1-1 5.9 below low normal Not Available [facility] ([facility]) [address] [place], [address], 03/21/2023 16:14:08 03/20/20 23 03/21/2023 CBC WITH DIFFE RENTI AL/PL ATELE T hematocrit 31.7 % 34.0-4 6.6 below low normal Not Available [facility] ([facility]) [address] [place], [address], 03/21/2023 16:14:08 03/20/20 23 03/21/2023 CBC WITH DIFFE RENTI AL/PL ATELE T MCV 86 fL 79-97 Not Available [facility] ([facility]) [address] [place], [address], 03/21/2023 16:14:08 03/20/20 23 03/21/2023 CBC WITH DIFFE RENTI AL/PL ATELE T MCH 26.6 pg 26.6-3 3.0 Not Available [facility] ([facility]) [address] [place], [address], 03/21/2023 16:14:08 03/20/20 23 03/21/2023 CBC WITH DIFFE RENTI AL/PL ATELE T MCHC 30.9 g/dL 31.5-3 5.7 below low normal Not Available [facility] ([facility]) [address] [place], [address], 03/21/2023 16:14:08 03/20/20 23 03/21/2023 CBC WITH DIFFE RENTI AL/PL ATELE T RDW 15.5 % 11.7-1 5.4 above high normal Not Available [facility] ([facility]) [address] [place], [address], 03/21/2023 16:14:08 03/20/20 23 03/21/2023 CBC WITH DIFFE RENTI AL/PL ATELE T platelets 505 x10e3 /uL 150-45 0 above high normal Not Available [facility] ([facility]) [address] [facility], [place], [address], 03/21/2023 16:14:08 03/20/20 23 03/21/2023 CBC WITH DIFFE RENTI AL/PL ATELE T neutrophils 67 % notest ab. Not Available [facility] ([facility]) [address] [facility], [place], [address], 03/21/2023 16:14:08 03/20/20 23 03/21/2023 CBC WITH DIFFE RENTI AL/PL ATELE T lymphs 21 % notest ab. Not Available [facility] ([facility]) [address] [facility], [place], [address], 03/21/2023 16:14:08 03/20/20 23 03/21/2023 CBC WITH DIFFE RENTI AL/PL ATELE T monocytes 7 % notest ab. Not Available [facility] ([facility]) [address] [facility], [place], [address], 03/21/2023 16:14:08 03/20/20 23 03/21/2023 CBC WITH DIFFE RENTI AL/PL ATELE T eos 5 % notest ab. Not Available [facility] ([facility]) [address] [facility], [place], [address], 03/21/2023 16:14:08 03/20/20 23 03/21/2023 CBC WITH DIFFE RENTI AL/PL ATELE T basos 0 % notest ab. Not Available [facility] ([facility]) [address] [facility], [place], [address], 03/21/2023 16:14:08 03/20/20 23 03/21/2023 CBC WITH DIFFE RENTI AL/PL ATELE T neutrophils (absolute) 4.0 x10e3 /uL 1.4-7. 0 Not Available [facility] ([facility]) [address] [facility], [place], [address], 03/21/2023 16:14:08 03/20/20 23 03/21/2023 CBC WITH DIFFE RENTI AL/PL ATELE T lymphs (absolute) 1.3 x10e3 /uL 0.7-3. 1 Not Available [facility] ([facility]) [address] [facility], [place], [address], 03/21/2023 16:14:08 03/20/20 23 03/21/2023 CBC WITH DIFFE RENTI AL/PL ATELE T monocytes(ab solute) 0.4 x10e3 /uL 0.1-0. 9 Not Available [facility] ([facility]) [address] [facility], [place], [address], 03/21/2023 16:14:08 03/20/20 23 03/21/2023 CBC WITH DIFFE RENTI AL/PL ATELE T eos (absolute) 0.3 x10e3 /uL 0.0-0. 4 Not Available [facility] ([facility]) [address] [facility], [place], [address], 03/21/2023 16:14:08 03/20/20 23 03/21/2023 CBC WITH DIFFE RENTI AL/PL ATELE T baso (absolute) 0.0 x10e3 /uL 0.0-0. 2 Not Available [facility] ([facility]) [address] [facility], [place], [address], 03/21/2023 16:14:08 03/20/20 23 03/21/2023 CBC WITH DIFFE RENTI AL/PL ATELE T immature granulocytes 0 % notest ab. Not Available [facility] ([facility]) [address] [facility], [place], [address], 03/21/2023 16:14:08 03/20/20 23 03/21/2023 CBC WITH DIFFE RENTI AL/PL ATELE T immature grans (abs) 0.0 x10e3 /uL 0.0-0. 1 Not Available [facility] ([facility]) [address] [place], [address], 03/21/2023 16:14:08 03/20/20 23 03/21/2023 CREAT INE KINAS E (CK), MB creatine kinase (CK), mb 3.4 NG/mL 0.0-5. 3 Not Available [facility] ([facility]) [address] [facility], [place], [address], 03/21/2023 16:14:01 09/08/20 24 09/10/2024 ALBUM IN/CR EAT RATIO , RANDO M UR creatinine, urine 48.8 mg/dL notest ab. Not Available [facility] ([facility]) [address] [place], [address], 09/10/2024 12:29:42 09/08/20 24 09/10/2024 ALBUM IN/CR EAT RATIO , RANDO M UR albumin, urine 4317.3 ug/mL notest ab. Resul ts confi rmed on dilut ion. Not Available [facility] ([facility]) [address] [facility], [place], [address], 09/10/2024 12:29:42 09/08/20 24 09/10/2024 ALBUM IN/CR EAT RATIO , RANDO M UR alb/creat ratio 8847 mg/g_ creat 0-29 above high normal Mally l: 0 - 29 Moder ately incre ased: 30 - 300 Sever lou incre ased: >300 Not Available [facility] ([facility]) [address] [place], [address], 09/10/2024 12:29:42 09/08/20 24 09/10/2024 PREGN AMY TEST, URINE test, urine Negati ve negati ve Not Available [facility] ([facility]) [address], [place], [address], 09/10/2024 12:29:43 09/08/20 24 09/08/2024 pregn amy test, urine HCG negati ve Not Available In-Office Order Internal Use Only DO Not Attach Compendium DO Not Attach Compendium, Do Not Delete/merge, [id number] 09/08/2024 17:28:22 08/05/20 23 08/04/2023 XR, chest , 2 view No observ ation record ed. [address], [place], [address], 08/05/2023 16:40:30 08/06/2008/06/2023 MRI, brain + brain stem, w/o contr ast No observ ation record ed. [address], [place], [address], 08/06/2023 14:01:07 08/11/2008/07/2023 US, doppl er, venou s No observ ation record ed. [address], [place], [address], 08/11/2023 11:52:24 08/11/20 23 08/11/2023 XR, chest , 2 view No observ ation record ed. [address], [place], [address], 08/12/2023 12:00:22 08/12/20 23 08/12/2023 XR, chest , 2 view No observ ation record ed. [address], [place], [address], 08/13/2023 14:31:59 08/13/20 23 08/13/2023 CT, brain , w/o contr ast No observ ation record ed. [address], [place], [address], 08/13/2023 15:31:08 08/15/20 23 08/15/2023 lab* No observ ation record ed. [email or web address], [place], [address], 08/18/2023 12:55:08 08/15/20 23 08/15/2023 lab* No observ ation record ed. [id number], [place], [address], 08/18/2023 12:55:03 08/18/2008/15/2023 lab* No observ ation record ed. [id number], [place], [address], 08/18/2023 12:54:44 08/29/2008/06/2023 US, echoc ardio gram No observ ation record ed. [email or web address] Not Available 09/13 15:56:53 01/09/20 24 01/07/2024 CT, abdom en + pelvi s, w/ contr ast No observ ation record ed. [address], [place], [address], 01/13/2024 10:52:03 01/14/20 24 01/14/2024 XR, chest , 2 view No observ ation record ed. [address], [place], [address], 01/14/2024 17:10:02 01/15/20 24 01/14/2024 CT, chest , w/ contr ast No observ ation record ed. [address], [place], [address], 01/15/2024 11:46:27 02/16/20 24 02/16/2024 US, abdom en No observ ation record ed. [address], [place], [address], 02/17/2024 09:54:11 02/18/20 24 02/16/2024 CT, chest , w/wo contr ast No observ ation record ed. [address], [place], [address], 02/18/2024 13:01:14 02/22/20 24 02/20/2024 lab* No observ ation record ed. [id number], [place], [address], 02/23/2024 07:50:57 02/22/20 24 02/21/2024 lab* No observ ation record ed. [address], [place], [address], 02/23/2024 07:50:52 02/22/20 24 02/22/2024 lab* No observ ation record ed. [address], [place], [address], 02/23/2024 07:50:49 02/23/20 24 02/21/2024 US, axill a No observ ation record ed. [address], [place], [address], 02/24/2024 08:53:11 02/26/20 24 02/16/2024 US, echoc ardio gram No observ ation record ed. BARCODE Not Available 2023 18:53:56 05/18/20 24 05/18/2024 XR, chest , 2 view No observ ation record ed. [address], [place], [address], 05/18/2024 15:03:50 05/20/20 24 05/20/2024 XR, chest , 2 view No observ ation record ed. [address], [place], [address], 05/21/2024 09:11:41 07/25/20 24 07/25/2024 XR, shoul brandon, 2 or more view No observ ation record ed. [address], [place], [address], 07/25/2024 15:06:40 07/26/20 24 07/25/2024 CT, chest + abdom en + pelvi s, w/o contr ast No observ ation record ed. [address], [place], [address], 07/26/2024 14:44:50 08/26/2008/25/2024 lab* No observ ation record ed. [address], [place], [address], 08/26/2024 15:11:26 08/26/20 24 08/25/2024 lab* No observ ation record ed. [place] [address], [place], [address], 08/26/2024 15:11:37 09/13/20 24 05/21/2023 US, echoc ardio gram, trans thora cic, compl ete, w/ color flow No observ ation record ed. BARCODE Not Available 2023 16:56:55 11/02/20 24 11/02/2024 XR, chest , 2 view No observ ation record ed. [address], [place], [address], 11/10/2024 14:17:28 11/10/19 25 11/10/2024 XR, chest , 1 view No observ ation record ed. [address], [place], [address], 11/10/2024 14:17:39 Result Notes None recorded. Problems Name Problem SNOMED Code Status Onset Date Resolution Date Notes Provider Name and Address Organization Details Recorded Time Diabetes mellitus 54510257 Active 2022 Betsey Jonas CMA [facility], [place] - [facility] 3 11:54:58 Hypertensiv e disorder 30635091 Active 2022 Betsey Jonas [employer] null, [place] - [facility] 3 11:55:13 Edema 835591669 Active 2022 Betsey Jonas [employer] null, [place] - [facility] 3 11:55:38 Uncontrolle d type 2 diabetes mellitus 047599773 Active 2022 MAURICIO SIMPSON Attn: Tylor valerio,[address] [facility], [place], [address], [place] - [facility] 3 12:02:47 Amputated left lower limb below knee 107958162 Active 2022 MAURICIO SIMPSON Attn: Tylor g,[address] [facility], [place], [address], [place] [facility] 3 12:02:50 Essential hypertensio n 83795357 Active 2022 MAURICIO SIMPSON Attn: Tylor valerio,[address] [facility], [place], [address], [place] [facility] 3 12:02:48 Hospital inpatient stay within past 30 days 8512915580829 Active 2022 MAURICIO SIMPSON Attn: Tylor g,[address] [facility], [place], [address], [place] [facility] 3 15:00:27 Glaucoma 91931794 Active 2022 MAURICIO SIMPSON Attn: Tylor valerio,[address] [facility], [place], [address], [place] - [facility] 3 16:32:50 Problem Notes None recorded. Procedures Surgical History None recorded. Imaging Results Imaging Date Name Status LastModified by Organization Details LastModified Time 08/04/2023 XR, chest, 2 view completed [facility] [address], [place], [address], 08/05/2023 16:40:30 08/06/2023 MRI, brain + brain stem, w/o contrast completed [address], [place], [address], 08/06/2023 14:01:07 08/07/2023 US, doppler, venous completed [address], [place], [address], 08/11/2023 11:52:24 08/11/2023 XR, chest, 2 view completed [address], [place], [address], 08/12/2023 12:00:22 08/12/2023 XR, chest, 2 view completed [address], [place], [address], 08/13/2023 14:31:59 08/13/2023 CT, brain, w/o contrast completed [address], [place], [address], 08/13/2023 15:31:08 08/15/2023 lab* completed [address], [place], [address], 08/18/2023 12:55:08 08/15/2023 lab* completed [address], [place], [address], 08/18/2023 12:55:03 08/15/2023 lab* completed [address], [place], [address], 08/18/2023 12:54:44 08/06/2023 US, echocardiogram completed [facility] ation not available 09/13/2024 15:56:53 01/07/2024 CT, abdomen + pelvis, w/ contrast completed [address], [place], [address], 01/13/2024 10:52:03 01/14/2024 XR, chest, 2 view completed [address] [address], [place], [address], 01/14/2024 17:10:02 01/14/2024 CT, chest, w/ contrast completed [address], [place], [address], 01/15/2024 11:46:27 02/16/2024 US, abdomen completed [address] [address], [place], [address], 02/17/2024 09:54:11 02/16/2024 CT, chest, w/wo contrast completed [address] [address], [place], [address], 02/18/2024 13:01:14 02/20/2024 lab* completed [address] [address], [place], [address], 02/23/2024 07:50:57 02/21/2024 lab* completed [address] [address], [place], [address], 02/23/2024 07:50:52 02/22/2024 lab* completed [address] [address], [place], [address], 02/23/2024 07:50:49 02/21/2024 US, axilla completed [address] [address], [place], [address], 02/24/2024 08:53:11 02/16/2024 US, echocardiogram completed [facility] Inform ation not available 02/26/2024 18:53:56 05/18/2024 XR, chest, 2 view completed [address] [address], [place], [address], 05/18/2024 15:03:50 05/20/2024 XR, chest, 2 view completed [address] [address], [place], [address], 05/21/2024 09:11:41 07/25/2024 XR, shoulder, 2 or more view completed [address] [address], [place], [address], 07/25/2024 15:06:40 07/25/2024 CT, chest + abdomen + pelvis, w/o contrast completed [address] [address], [place], [address], 07/26/2024 14:44:50 08/25/2024 lab* completed [address] [address], [place], [address], 08/26/2024 15:11:26 08/25/2024 lab* completed [address] [address], [place], [address], 08/26/2024 15:11:37 05/21/2023 US, echocardiogram, transthoracic, complete, w/ color flow completed [facility] Information not available 09/13/2024 16:56:55 11/02/2024 XR, chest, 2 view active [address], [address], 11/10/2024 14:17:28 11/10/2024 XR, chest, 1 view active [address], [address], 11/10/2024 14:17:39 Procedure Notes None recorded. Medical Equipment None [...] Arterial blood by Pulse oximetry Heart rate Respiratory rate Body temperature Systolic blood pressure Diastolic blood pressure Provider Name and Address Organization Details Last Updated DateTime 3 97 % 97 % 71 /min 17 /min 97.6 [degF] 146 mm[Hg] 94 mm[Hg] Betsey Jonas CMA [facility] 3 12:01:25 Date Recorded Respiratory rate Body temperature Oxygen saturation Oxygen saturation in Arterial blood by Pulse oximetry Heart rate Systolic blood pressure Diastolic blood pressure Provider Name and Address Organization Details Last Updated DateTime 3 18 /min 97.9 [degF] 98 % 98 % 74 /min 140 mm[Hg] 92 mm[Hg] Bri Carlton MA [facility] 3 12:48:30 Date Recorded Oxygen saturation Oxygen saturation in Arterial blood by Pulse oximetry Heart rate Respiratory rate Body temperature Systolic blood pressure Diastolic blood pressure Provider Name and Address Organization Details Last Updated DateTime 3 95 % 95 % 97 /min 17 /min 97.6 [degF] 144 mm[Hg] 86 mm[Hg] Betsey Jonas CMA [facility] 3 14:25:38 Date Recorded Oxygen saturation Oxygen saturation in Arterial blood by Pulse oximetry Heart rate Systolic blood pressure Diastolic blood pressure Provider Name and Address Organization Details Last Updated DateTime 4 99 % 99 % 89 /min 186 mm[Hg] 114 mm[Hg] Yamileth Fournier [facility] 4 16:46:14 Date Recorded Respiratory rate Systolic blood pressure Diastolic blood pressure Provider Name and Address Organization Details Last Updated DateTime 09/08/2024 18 /min 180 mm[Hg] 110 mm[Hg] MAURICIO SIMPSON Attn: Accounting, [address] [place], [address], [facility] 09/09/2024 10:10:08 Social History Question Answer Notes LastModified by Organizat ion Details LastModified Time Tobacco Smoking Status Former Smoker quit 2002 Betsey Jonas CMA null, [facility] 01/30/2023 11:53:19 What Is Your Level Of [...] Atrial Fibrillation N High Blood Pressure Y Depression N COPD N Blood Clots N Anxiety Disorder N Muscle, Joint, or Bone Problems N Acid Reflux (GERD) N Cancer N Stroke N ADHD N High Cholesterol N Liver Disease N Schizophrenia N Headaches N Kidney or Bladder Problems N Thyroid Problems N GI Problems N Eating Disorder N Skin Problems N Anemia N Heart Attack (NM) N Diabetes Y Seizures/Epilepsy N Asthma N Allergies Y Substance Abuse N Hepatitis N Osteoporosis N Heart Failure N Gynecological History Statement/Question Response Menses Monthly Y Current Control Method None Date of LMP 01/10/2023 LMP Approximate Obstetrics History GPAL:G 0 P 0 0 0 0 Past Encounters Encounter ID Performer Location Encounter Start Date Encounter Closed Date Diagnosis/Indication Diagnosis SNOMED-CT Code Diagnosis ICD10 Code Diagnosis Note [id number] Edwin briceno MD [facility] [address] [place] [address] 01/30/2023 11:38:53 01/30/2023 12:32:15 Uncontrolled type 2 diabetes mellitus 783774907 E11.65 diagnosed age 18Hgb a1c 11.7 on 08/22/22a1 c 6.7 in hospitala1 c today 5.6on SA insulin with meals 5 units, and lantus 5 units at bedtimehas been on PO meds in the pastrecord BS logf/u in 2 wks Amputated left lower limb below knee 553172391 Z89.512 due to necrotizin g fasciitisf ollowing with vascular and wound caremissed wound appt this weekPEx- 2 cm x 2 cm circular superficia l ulceration to plantar heeladvise d pt to make appt MONICA due to new wound and missed apptrefer for prosthetic Essential hypertension 30833902 I10 out of medsBP today 146/94f/u in 2 wks Depression screening 171 461011 Z13.31 PHQ 0 Hospital i npatient stay within past 30 days 6441066844 106 Z76.89 PMH of DM 2, HTN, HFpEF, morbid obesity, MDD , who presented to [facility] on 12/02/2022 for large wound to the left foot. Patient fell in the shower 2 weeks prior to the admission and sustained a small injury on the left foot. Developed progressiv e blistering skin sloughing and foul discharge to the side.In ER- patient was afebrile BP 151 /108. Labs show creatinine 2.95, alk-phos 315, white blood cell count 42,000, esr >130, bnp- 551. X-ray revealed subcutaneo us gas formation concern for necrotizin g fasciitis. Vascular consulted, patient underwent emergent left ankle disarticul ation. Patient started IV vanc/ safety/cli ndamycin. Blood cultures from 12/02 positive for GPC/ GPB, pending speciation . Wound culture positive for Proteus mirabilis and Streptococ cus agalactiae . Antibiotic s deescalate d to IV cefepime to oral Augmentin ( EOT 12/14/2022 ). Patient was transferre d to ICU following ankle disarticul ation for bacteremia . Patient was transferre d to the floor on 12/04. Patient's underwent left AKA per IP vascular surgery on 12/05Patie nt was discharged to [facility] on 12/12/2022 in stable condition, was in rehab for 10-12 days Heart fail ure with normal ejection fraction 055418362 I50.30 Cardiology referralpt reports she was never told she has heart failurewas discharged on lasix 80unknown Cr, elevated during admissionw ill refill at 40 mg Per hospital admission 08/2022: # Heart Failure with Preserved Ejection FractionPa tient developed worsening SOB in the setting of [...] and DC to IP BHU-Coreg 12.5 BID Iron defic iency anemia 57174226 D50.9 refill Dilated pupil 47590194 H 57.04 L sclera injected, pupil 4 mm dilated, reactive to lightpt denies pain or vision lossadvise d sister to call [facility] for urgent appt [id number] MAURICIO SIPMSON [facility] [address] [place] [address] 02/14/2023 12:37:29 02/14/2023 13:34:21 Amputated left lower limb below knee 112670522 Z89.512 02/14/23:pr inted off referral and encouraged pt to call to schedule appt 01/30/23:du e to necrotizin g fasciitisf ollowing with vascular and wound caremissed wound appt this weekPEx- 2 cm x 2 cm circular superficia l ulceration to plantar heeladvise d pt to make appt MONICA due to new wound and missed apptrefer for prosthetic Heart fail ure with normal ejection fraction 486273887 I50.30 02/14/23:Mauricio santana and sister report never getting a call [...] and DC to IP BHU-Coreg 12.5 BID Uncontroll ed type 2 diabetes mellitus 241612633 E11.65 02/14/23:BS post prandial 130-260sst op insulinsta rt metformin 1000Check Lipid panel, CMP, TSH, and FT4f/u in 1 mo with BS log 01/30/23:di agnosed age 18Hgb a1c 11.7 on 08/22/22a1 c 6.7 in hospitala1 c today 5.6on SA insulin with meals 5 units, and lantus 5 units at bedtimehas been on PO meds in the pastrecord BS logf/u in 2 wks Essential hypertension 44896350 I10 02/14/23:BP 140/92did not take meds yet 01/30/23:ou t of medsBP today 146/94f/u in 2 wks Dilated pupil 25631703 H 57.04 02/14/23:PE x- unchanged from prior, L sclera injected, pupil 4 mm dilated, reactive to lightRepor ts following with [facility]. Patient doing shots in each eye every month Iron defic iency anemia 59809244 D50.9 RefillChec k CBC, iron, TIBC, and ferritin levels Open wound, heel 1654916 09 S91.301A 2 cm x 2 cm open ulceration of right heel, no active drainage or bleedingGi bryce wound care suppliesEd ucated patient and family on keeping the wound clean, dry, and coveredRef er to wound care [facility] [id number] Edwin briceno MD [facility] [address] [place] [address] 03/20/2023 14:14:57 03/20/2023 15:00:39 Open wound, heel 372074364 S91.301A 03/20/23:sa w wound care 03/18/23, goes once a weekXR negative for osteomyeli tis of R foot, has upcoming MRI and US for lymphedema to BLE 02/14/23:2 cm x 2 cm open ulceration of right heel, no active drainage or bleedingGi bryce wound care suppliesEd ucated patient and family on keeping the wound clean, dry, and coveredRef er to wound care at [facility] Uncontroll ed type 2 diabetes mellitus 651191988 E11.65 03/20/23:we nt to hospital 02/12/23, stopped metformin [...] the pastrecord BS logf/u in 2 wks Essential hypertension 82742104 I10 03/20/23:BP 144/86card io started losartan 25on amlodipine 10 and carvedilol 12.5 BIDdid not take meds 02/14/23:BP 140/92did not take meds yet 01/30/23:ou t of medsBP today 146/94f/u in 2 wks Amputated left lower limb below knee 717978171 Z89.512 03/20/23:olivo d prosthetic eval at [facility], rec'd PT before prosthetic pt wants inpatient rehabcalle d PT office and left VM to call back to discuss 02/14/23:pr inted off referral and encouraged pt to call to schedule appt 01/30/23:du e to necrotizin g fasciitisf ollowing with vascular and wound caremissed wound appt this weekPEx- 2 cm x 2 cm circular superficia l ulceration to plantar heeladvise d pt to make appt MONICA due to new wound and missed apptrefer for prosthetic Heart fail ure with normal ejection fraction 774358554 I50.30 03/20/23:Sa w cardio 03/18, Dr. Mendez, labs requested per Dr. Sandy arteaga stress test, started her on potassium 20, losartan 25, furosemide 20has f/u appt 04/22/23 02/14/23:Mauricio esther and sister report never getting a call from cardiology . Given referral so they can contact the office. 01/30/23:Sheron rdiology referralpt reports she was never told [...] and DC to IP BHU-Coreg 12.5 BID Glaucoma 23687813 H40.9 03/20/23:to ld she has glaucoma in L eyefollowi ng with [facility] once a month 02/14/23:PE x- unchanged from prior, L sclera injected, pupil 4 mm dilated, reactive to lightRepor ts following with [facility]. Patient doing shots in each eye every month [id number] MAURICIO SIMPSON [facility] [address] [place] [address] 09/08/2024 16:37:58 09/08/2024 17:18:03 Hospital inpatient stay within past 30 days [id number] 106 Z76.89 Admitted to [facility] 08/26/24 to 09/01/24 Right shoulder pain [...] Heart fail ure with normal ejection fraction 206217056 I50.30 09/08/24:HF pEF- last TTE 07/30/24 showing normal LV systolic function prior study 05/2024 demonstrat ed grade II diastolic dysfunctio n- carvedilol to 25 mg bid, lisinopril to 40 mg daily, and continue home amlodipine 10 mg dailyrefer to cardio 03/20/23:Sa w cardio 03/18, Dr. Mendez, labs requested per Dr. Sandy arteaga stress [...] to IP BHU-Coreg 12.5 BID Essential hypertension 47327461 I10 09/08/24: did not take meds today, BP 180/110 x2 03/20/23:BP 144/86card io started losartan 25on amlodipine 10 and carvedilol 12.5 BIDdid not take meds 02/14/23:BP 140/92did not take meds yet 01/30/23:ou t of medsBP today 146/94f/u in 2 wks Diabetic p eripheral neuropathy 066513916 E11.40 refill Acute deep venous thrombosis of right upper extremity 3532335726 94363 I82.621 R shoulderre fill Chronic constipation 236 066442 K59.09 refill Pain of ri ght shoulder joint 7934272754 9553573 M25.511 septic arthritisr equesting oxycodone refilldisc ussed with pt would not be filling pain medication s long termwill give script of tramadol, future referral to PMrefill methocarba mol Difficulty sleeping 3013 34403 Z72.820 requesting trazodone to help her sleep, can interact with Eliquisno relief with OTC meds Contraception care 84448 5585 Z30.40 last period 07/2024 and wants to regulate cyclesurin e preg negativewi ll send slynd Bilateral cataracts 9572 2003 [facility] 2 diabetes mellitus 707944087 E11.65 09/08/24: a1c inpatient 7.4%wants to re-start [...] logf/u in 2 wks Depression screening 171 498177 Z13.31 PHQ 0 Health Concerns Section Related Observation LastModified by Organization Detai ls LastModified Time None Recorded Concern Status LastModified by Organization Details LastModified Time None Recorded Advance Directives Directive None Recorded Payers Encounter Date Sequence Insurance Name Policy Number Policy Bobo Covered Member ID Bobo Member ID Guarantor Name 01/30/2023 1 [facility] (MEDICAID REPLACEMENT - HMO) [id number] Gay Canales [id number] Gay Canales 02/14/2023 1 [facility] (MEDICAID REPLACEMENT - HMO) [id number] Gay Canales [id number] Gay Canales 03/20/2023 1 [facility] (MEDICAID REPLACEMENT - HMO) [id number] Gay Canales [id number] Gay Canales 09/08/2024 1 [facility] (MEDICAID HMO) [id number] Gay Canales [id number] Gay Canales Notes Date Note Type Note Provider Name and Address Organization Details Recorded Time 01/30/2023 text/html Pt presents to establish care as a new patient. Reports that she was admitted to [facility] two months ago for foot wound and had to have amputation to left leg. Pt is following with Wound Care at [facility] and missed her appt this week. Sister states that she was diagnosed with cataract and retina issues 1 mo ago and is following with [facility]. Pt requesting med refills.Denies fever, chills, chest pain, SOB, n/v/d, abd pain, dizziness, weakness, or headaches. Edwin Call MD Attn: Accounting, [address] [facility], [place], [address], [facility] - [facility] 02/07/2023 15:46:17 02/14/2023 text/html Gay Canales is a 32 y/o female with PMH hypertension and T2DM c/p AKA of the left limb presenting to clinic for follow up. Patient overall doing okay since discharge in December. She is following with ophthalmology regarding left eye issue. She is having some vision loss in the left eye as well. Denies pain. They are doing shots once per month in both eyes. Reviewed blood glucometer in office. BG ranging in the 130s-260s. They have not heard back from the cardiology office or prosthetic/orthotics yet. She continues to have open wound on the bottom of her right heel. They have been keeping the wound clean, dry and covered. Other wounds over the right sher have remained stable. Denies fever, chills, nausea, vomiting, abdominal pain, constipation, diarrhea, chest pain, shortness of breath, headache, and dysuria. MAURICIO SIMPSON Attn: Accounting, [address] [facility], [place], [address], [facility] - [facility] 02/14/2023 15:04:55 03/20/2023 text/html Pt presents for 1 mo f/u. Mom is present. She is following with Wound Care once a week. She had PT eval for prosthetic and they recommend she has physical therapy before she receives prosthetic. Pt is requesting inpatient rehab PT. She saw Cardiology, Dr. Mendez this week, started her on losartan, potassium and furosemide. Edwin Call MD Attn: Accounting, [address] [facility], [place], [address], [facility] - [facility] 03/24/2023 10:00:05 09/08/2024 text/html Pt presents to re-establish care. Last OV 03/2023. Most recent hospitalization was due to septic R shoulder and currently has drain. States that she [facility] in a [facility] for the past year. Requesting med refills. MAURICIO SIMPSON Attn: Accounting,[address] [facility], [place], [address], [place] - [facility] 09/09/2024 10:20:36 OBGyn Episode No OBEpisode recorded.
== END 2024-11-11 14:40 | disposition home or self-care (01) ==
LOC: ANHED 06:51 → ANH3MED 16:14
PROVIDERS: Internal Medicine Nephrology; Orthopaedic Surgery; Admitting Provider Internal Medicine; Emergency Provider Emergency Medicine; PCP Physician Assistant; Visit Provider Internal Medicine
DX: R06.00 Dyspnea, unspecified (principal); J90 Pleural effusion, not elsewhere classified; R07.89 Other chest pain; E11.22 Type 2 diabetes mellitus with diabetic chronic kidney disease; I13.2 Hypertensive heart and chronic kidney disease with heart failure and with stage 5 chronic kidney disease, or end stage renal disease; I50.32 Chronic diastolic (congestive) heart failure; N18.6 End stage renal disease; D63.1 Anemia in chronic kidney disease; Z99.2 Dependence on renal dialysis; E11.40 Type 2 diabetes mellitus with diabetic neuropathy, unspecified; E87.5 Hyperkalemia; M00.812 Arthritis due to other bacteria, left shoulder; B96.89 Other specified bacterial agents as the cause of diseases classified elsewhere; H54.7 Unspecified visual loss; L97.419 Non-pressure chronic ulcer of right heel and midfoot with unspecified severity; E66.01 Morbid (severe) obesity due to excess calories; Z68.41 Body mass index [BMI] 40.0-44.9, adult; Z20.822 Contact with and (suspected) exposure to COVID-19; Z66 Do not resuscitate; Z89.512 Acquired absence of left leg below knee; Z79.01 Long term (current) use of 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; Z79.85 Long-term (current) use of injectable non-insulin antidiabetic drugs; Z79.899 Other long term (current) drug therapy
CPT/HCPCS: 36415; 70490; 71045; 71250; 73030; 73200; 80053; 82948; 83605; 83735; 84145; 84484; 85025; 85610; 85652; 85730; 86140; 86706; 87040; 87340; 87637; 87641; 93005; 96374; 96375; 96376; 99212; 99285; A9270; G0257; G0378; G0379; G0463; J1171; J1644; J1815; J2270; J2405; J7030

== ENCOUNTER 2025-01-13 10:30 | Outpatient (RCR) | payer OTHER, SELFPAY ==
--- NOTE | 2024-12-08 14:35 | OPREHPOC ---
Outpatient Therapy Plan of Care This is a Multidisciplinary Plan of Care that may contain components documented by all disciplines (PT, OT, and ST.) PT Problem 1 PT Problem #1 Knowledge Deficit PT Goal 1 Goal / Goal Update *indep with HEP * correct use of assistive device Target Visit 10 PT Problem 2 PT Problem #2 Impaired Strength PT Goal 1 Goal / Goal Update *increase R LE and L hip strength, to improve mobility and gait skills: * pt able to perform 20 reps of mat strengthening exercises Target Visit 10 PT Problem 3 PT Problem #3 Impaired Functional Mobility PT Goal 1 Goal / Goal Update * pt ambulate with wheeled walker and CGA one x 100' Target Visit 10 PT Goal 2 Goal / Goal Update * pt static stand at counter top, indep, with PRN touch of UE's x 5 minutes, to be able to perform kitchen tasks Target Visit 10 PT Problem 4 PT Problem #4 Impaired Functional Mobility PT Goal 1 Goal / Goal Update * monitor L LE skin during sessions, no irritation or redness of skin Target Visit 10
--- NOTE | 2024-12-08 14:35 | PTOPEVAL1 ---
Assessment and note entered by Kristy Ruby, PT Evaluation Information Assessment Status Evaluation ICD-10 Condition Codes (PT) Difficulty Walking R26.2,Abnormalities of gait and mobility R26.9,Weakness R53.1 Subjective Information she had L AKA 2 years ago, went to [place] for rehab and stood only; have not been wearing her prosthesis, at home, use the w/c to get around; have dialysis M-W-F; family and transport service for transportation activity: live with sister; indep with bathing, dressing- sponge bath; indep with pivot w/c<> bed, couch; stays on the main level of the home, there is not a shower on main level; Goal: learn to walk again; Reported Pain Level Pain Score 0: Self Report Assessment PT Clinical Summary Gay has the diagnosis of L AKA, weakness and decreased mobility. Her AKA was 2 years ago, and she has not walked much since amputation. Recent hospitalization Nov 10 to , due to missing dialysis. Medical history includes dialysis M-W -F, MRSA with I & D of R shoulder. She is blind and lives with family, using a wheel chair for mobility. With the evaluation: she has weakness of both hips, R knee; decreased standing and gait skills with L prosthesis. Skilled PT services are indicated for therapeutic exercises and activities to increase LE strength, transfer and gait balance, skills to improve mobility. Plan of Care Interventions Gait Training,Neuro Re-education,Patient/Caregiver Education,Prosthetic Training,Therapeutic Activities,Therapeutic Exercise PT Services Indicated Yes Treatment Frequency and 2x/wk for 10 visits Duration These treatments will address the objective and functional deficits as defined above. The patient will be advanced safely and appropriately in order for the patient to progress towards his/her prior level of function. Additional exercises will be introduced and as well as a comprehensive home exercise program upon discharge, if needed, ?to ensure carryover of functional gains achieved in the clinic. This treatment plan has been reviewed and agreement upon by the patient.
--- NOTE | 2024-12-21 11:34 | PCPTNOTE ---
Pt canceled due to weather.
--- NOTE | 2024-12-23 11:55 | PCPTNOTE ---
Pt canceled due to weather today.
--- NOTE | 2025-01-11 08:14 | PCPTNOTE ---
Addendum for missing note on December 28, 2024 S: Pt presents with Brother in Law today. Pt states she has not been practicing any walking at home. She notes she does her leg exercises though. O:W/Chair transfer to/from mat, CGA. supine: R LE SLR 2 x 10 reps with verbal and tactile cueing for decreasing rotation of R leg hip abduction 2 x 10reps; quad and glut set 2 x 10 reps with 5 sec hold Prone stretch x 4 min (roller to hamstrings and back to encourage circulation) Educated and instructed brother in law about safety with belt, sit to stand and posture for patient at home stood in // bars: static stand with increase wt shift onto L LE and decrease use of UE ~ 1 & 1/2 minutes then fatigued; ambulated 4' x 3 with increased use of UE's and R hip flexion with stance phase. sit/stand with min assist one, SBA. weight shifting to L leg and encouraged patient to trust the right leg Cues to shift wt onto L and stand erect before advancing R LE forward. A: Pt tolerated session well with fatigue and a slight improvement with gait. Pt tends to flex trunk and shorten step length on R due to insecurity of L. Brother in Law stated he was going to help her walk at home. P: Continue progress gait as tolerated and strengthening. Gait: 15 min Functional tasks: 25 min Session total: 40 min
--- NOTE | 2025-01-11 13:24 | OPREHPOC ---
Outpatient Therapy Plan of Care This is a Multidisciplinary Plan of Care that may contain components documented by all disciplines (PT, OT, and ST.) PT Problem 1 PT Problem #1 Knowledge Deficit PT Goal 1 Goal / Goal Update *indep with HEP * correct use of assistive device 01-11-25: progress goal met continue to progress Target Visit 18 PT Problem 2 PT Problem #2 Impaired Strength PT Goal 1 Goal / Goal Update *increase R LE and L hip strength, to improve mobility and gait skills: * pt able to perform 20 reps of mat strengthening exercises 01-11-25: progress goal met NEW GOAL: * pt perform 30 reps of R and L supine and side lying hip exercises Target Visit 18 PT Problem 3 PT Problem #3 Impaired Functional Mobility PT Goal 1 Goal / Goal Update * pt ambulate with wheeled walker and CGA one x 100' 01-11-25: progress goal not met; improved to 10' continue towards goal Target Visit 10 PT Goal 2 Goal / Goal Update * pt static stand at counter top, indep, with PRN touch of UE's x 5 minutes, to be able to perform kitchen tasks 01-11-25: progress goal not met * change goal to time of 3 minutes Target Visit 18 PT Problem 4 PT Problem #4 Impaired Functional Mobility PT Goal 1 Goal / Goal Update * monitor L LE skin during sessions, no irritation or redness of skin 01-11-25: progress goal met continue to monitor skin Target Visit 18
--- NOTE | 2025-01-11 13:24 | PTOPPROG ---
Assessment and note entered by Kristy Ruby, PT Assessment Status Progress ICD-10 Condition Codes (PT) Difficulty Walking R26.2,Abnormalities of gait and mobility R26.9,Weakness R53.1 L AKA Subjective Information have been wearing my prosthesis all day long; have been doing the exercises at home; have not been walking at home, do not have a walker, only 4 wheeled walker and do not want to use it--unsteady and moves too much; Assessment PT Clinical Summary Gay has received 8 PT sessions. With today's session: to dept in w/c; ambulated with wheeled walker and L prosthesis 10' with CGA x1, with decreased weight shift onto L LE; static standing time, without use of UE support x 17 seconds; strength with mat exercises in supine, R and L LE 20-26 reps. She is using the wheel chair for mobility in home and community. Reported wearing her prosthesis all day when sitting up and no issues with her skin. LE functional scale self rating from 83 to 58% limitation in activity level. Education provided for HEP, gait pattern and safety with mobility. The goals were partially met. Continue PT treatment. Plan of Care Interventions Gait Training,Neuro Re-education,Patient/Caregiver Education,Prosthetic Training,Therapeutic Activities,Therapeutic Exercise PT Services Indicated Yes Treatment Frequency and 1-2x/wk for 10 visits Duration These treatments will address the objective and functional deficits as defined above. The patient will be advanced safely and appropriately in order for the patient to progress towards his/her prior level of function. Additional exercises will be introduced and as well as a comprehensive home exercise program upon discharge, if needed, ?to ensure carryover of functional gains achieved in the clinic. This treatment plan has been reviewed and agreement upon by the patient.
--- NOTE | 2025-01-20 13:29 | PCPTNOTE ---
Pt no call no showed her appointment this date.
--- NOTE | 2025-02-01 13:05 | PCPTNOTE ---
No call no show, reason unknown. AKJas
--- NOTE | 2025-02-03 12:57 | PCPTNOTE ---
No call no show. Left voice mssg to check on pt, remind her of her appt today and 2 next including date and time. AKS
--- NOTE | 2025-02-08 12:55 | PCPTNOTE ---
Left voice mssg with pt reminding her of her appt today. The next appt is Thur @ 12:30. I asked her to call and touch base with us. Our policy on missed treatments is to remove pt from schedule, however I would prefer to reschedule to accommodate her. JAIMEE
--- NOTE | 2025-02-21 09:48 | PTOPDC ---
Assessment and note entered by Kristy Ruby, PT Assessment Status Discharge - Pt Not Present ICD-10 Condition Codes (PT) Difficulty Walking R26.2,Abnormalities of gait and mobility R26.9,Weakness R53.1 Subjective Information pt was not seen this date. Assessment PT Clinical Summary Gay has received 8 PT sessions from Dec 08 to January 11. Then she did not show for 4 scheduled appointments. Discharge PT due to not attending. The goals were not addressed. Plan of Care PT Services Indicated No
== END 2025-02-21 11:34 | disposition home or self-care (01) ==
LOC: ANHPT 10:30
PROVIDERS: PCP Physician Assistant; Visit Provider Emergency Medicine
DX: Z89.511 Acquired absence of right leg below knee (principal); Z47.81 Encounter for orthopedic aftercare following surgical amputation
CPT/HCPCS: 97110; 97116; 97161; 97530

== ENCOUNTER 2025-01-13 21:03 | Inpatient (IN) | payer OTHER, SELFPAY ==
--- NOTE | ~2025-01-13 | XR_ITS ---
XR chest 1V portable Ordering provider: Adam Palacios MD History: 34 years Female with . Increase in WBC. . Comparison: January 13, 2025 FINDINGS: MEDIASTINUM: The cardiac silhouette is slightly enlarged. Left permacath with the tip overlying the s uperior vena cava. Congestive harmeet. LUNGS: No effusions or pneumothorax. Opacification in the left lower and upper lobe area is noted whi ch may indicate atelectasis versus pneumonia. OTHER: No free air under the diaphragm. IMPRESSION: Left lower and upper lobe atelectasis versus pneumonia. Clinical correlation and follow-up advised. Reviewed, dictated and finalized at location A. IMPRESSION: Left lower and upper lobe atelectasis versus pneumonia. Clinical correlation an d follow-up advised.
--- NOTE | ~2025-01-13 | CT_ITS ---
. EXAMINATION: CT shoulder RT wo con DATE: 01/14/2025 11:14 INDICATION: Right shoulder pain. TECHNIQUE: Computed tomography (CT) of the right shoulder was performed without intravenous contrast. Automated exposure control and iterative reconstruction technique were employed. The dose-length pro duct was 605.96 mGy-cm. COMPARISON: Right shoulder CT 11/10/2024, radiographs 11/10/2024, chest CT 08/25/2024 FINDINGS: There are nodules in right lung measuring up to 5 mm, likely benign. Partially visualized i s a central venous catheter. Bone alignment is normal. There are erosions of the distal clavicle. The re are erosions of the undersurface of the acromion. There are marginal erosions of the humeral head and inferior glenoid. There is chronic heterotopic ossification adjacent to the lesser tuberosity. No acute fracture. There is a glenohumeral joint effusion. IMPRESSION: 1. Stable findings of septic arthritis of the acromioclavicular joint and glenohumeral joint and sept ic subacromial/subdeltoid bursitis. Reviewed, dictated and finalized at location L. IMPRESSION: 1. Stable findings of septic arthritis of the acromioclavicular joint and gleno humeral joint and septic subacromial/subdeltoid bursitis.
--- NOTE | ~2025-01-13 | XR_ITS ---
XR chest 1V portable Ordering provider: Maximino Adkins MD History: 34 years Female with . overdose? . Comparison: November 10, 2024 FINDINGS: Left central line with the tip overlying the right atrium. MEDIASTINUM: The cardiac silhouette is slightly enlarged. LUNGS: Opacification in the upper and lower lobes more on the left side suggestive of pneumonia. Unde rlying pulmonary edema is not excluded. No effusions or pneumothorax. OTHER: No free air under the diaphragm. IMPRESSION: Bilateral pneumonia. Underlying pulmonary edema is not excluded. Reviewed, dictated and finalized at location A.
--- NOTE | ~2025-01-13 | CT_ITS ---
CT OF right foot EXAMINATION: CT foot RT wo con DATE: 01/16/2025 14:45 INDICATION: Wound TECHNIQUE: Computed tomography (CT) of the right foot was performed without intravenous contrast. Aut omated exposure control and iterative reconstruction technique were employed. The dose-length product was 339.64 mGy-cm. COMPARISON: X-ray right foot 08/04/2023 FINDINGS: The patient had limited mobility which resulted in difficulty correctly positioning the foot. The cor onal view is limited by nonstandard positioning. Normal mineralization. No fracture or dislocation. N o lytic or blastic lesion. Mild Achilles and plantar enthesopathy. Diffuse subcutaneous edema of the ankle and foot. Skin ulceration over the inferior heel, with induration of the subjacent tissues and thickening of the proximal aspect of the plantar fascia. No definite focal fluid collection although this determination is limited without contrast. Mild sclerosis of the posterior calcaneus, with chron ic appearing superficial cortical erosions. The major flexor and extensor tendons appear to be intact . IMPRESSION: Heel ulcer, with induration of the subjacent tissues and likely involvement of the plantar fascia. Th grady changes extend to the calcaneus which is sclerotic and mildly eroded, not significantly changed f rom the prior radiographs, probably representing chronic osteomyelitis. Recommend MRI of the foot wit hout and with contrast for further evaluation Reviewed, dictated and finalized at location K. IMPRESSION: Heel ulcer, with induration of the subjacent tissues and likely involvement of the plantar fascia. These changes extend to the calcaneus which is sclerotic an d mildly eroded, not significantly changed from the prior radiographs, probably representing chronic osteomyelitis. Recommend MRI of the foot without and with contrast for further evaluation
[2025-01-13 20:00] VITALS: BP 117/69; PULSE 85; RESP 17; TEMP 36.9; O2SAT 98
--- NOTE | 2025-01-13 20:13 | ECG_ITS ---
Test Date: 2025-01-13 20:46:00 Measurements Intervals [place] Rate: 83 P: 65 ME: 189 QRS: -10 QRSD: 93 T: -2 QT: 391 QTc: 462 Interpretive Statements SINUS RHYTHM POSSIBLE LEFT ATRIAL ENLARGEMENT [-0.1mV P-WAVE IN V1/V2] NONSPECIFIC ST AND T WAVE ABNORMALITY Compared to ECG 11/10/2024 01:57:19 No significant changes Electronically Signed On 01-14-2025 16:51:11 CDT by Angely Galvez M.D.
--- NOTE | 2025-01-13 21:12 | ED.OVERDOSE ---
HPI - Overdose General Chief Complaint: Overdose Stated Complaint: Unknown OD History of Present Illness HPI Narrative: 34-year-old female with a past medical history including end-stage renal disease on hemodialysis through a left-sided PermCath Friday. His a history of skc-ucbmxfg-toclrevdd diabetes, hypertension, hyperlipidemia, nephrotic syndrome. Patient presents to the emergency department today with suicidal attempt. She took an unknown quantity of 1 of her home medications. Patient states that she had the bottle under her bed but the rest for medications are present at bedside in a plastic bag that her family brought in. Cross referencing her home medications and the medications at bedside Lasix and lisinopril are missing from the bottles but the other medications appear full and recently filled. Patient does not know what medication she took and she took the medications in attempt to harm herself and end her life. Patient verbalizes stating that she does not want to be here anymore and is tired of life. Has a history of suicide attempts in the past. Patient verbalizes not wanting psychiatric help. Related Data Home Medications ?Medication ?Instructions ?Recorded ?Confirmed ?Last Taken ?Type amlodipine 10 mg tablet 10 mg PO DAILY 08/04/23 11/10/24 11/09/24 History carvedilol 12.5 mg tablet 12.5 mg PO Q12H 08/04/23 11/10/24 11/09/24 History bisacodyl 10 mg rectal suppository 10 mg RECTAL DAILY PRN Constipation 02/16/24 11/10/24 Unknown History tramadol 50 mg tablet 50 mg PO Q6H PRN Moderate Pain 02/16/24 11/10/24 11/06/24 History (Scale Score 5-6) acetaminophen 500 mg tablet 500 mg PO Q6H PRN Pain, Mild 05/16/24 11/10/24 Unknown History diphenhydramine HCl 25 mg capsule 25 mg PO Q8H PRN Itching 05/16/24 11/10/24 11/09/24 History furosemide 40 mg tablet 40 mg PO DAILY 05/16/24 11/10/24 11/09/24 History gabapentin 100 mg capsule 300 mg PO QMWF 05/16/24 11/10/24 11/08/24 History glucagon 1 mg injection kit 1 mg IM PRN PRN Hypoglycemia 05/16/24 11/10/24 Unknown History apixaban 5 mg tablet (Eliquis) 5 mg PO BID 11/10/24 11/10/24 11/09/24 History doxycycline hyclate 100 mg tablet 100 mg PO Q12H 11/10/24 11/10/24 11/09/24 History drospirenone (contraceptive) 4 mg 4 mg PO DAILY 11/10/24 11/10/24 11/09/24 History (28) tablet (Slynd) dulaglutide 0.75 mg/0.5 mL 0.75 mg subcut WEEKLY 11/10/24 11/10/24 11/05/24 History subcutaneous pen injector (Trulicity) Allergies Allergy/AdvReac Type Severity Reaction Status Date / Time No Known Allergies Allergy Verified 11/10/24 01:55 Review of Systems Review of Systems: As reviewed above in HPI [facility] Past Medical History Medical History (Updated 01/13/25 @ 23:34 by Maximino Adkins MD) Obstructive sleep apnea Patient has not had a formal polysomnogram but had positive ApneaLink August 2023 Septic arthritis of shoulder, left (05/2024) Diastolic heart failure secondary to hypertension EF 70% with grade 2 diastolic dysfunction echocardiogram August 2023 Anemia in chronic kidney disease End-stage renal disease on hemodialysis Hemodialysis initiated August 2023 Glaucoma Blind in both eyes (~03/2023) Occurred acutely March 2023 Nephrotic syndrome Diabetic neuropathy Hyperlipidemia Diabetic nephropathy with proteinuria Nephrotic range Chronic heel ulcer Chronic heel ulcer on the left foot developed November 2022 with acute decompensation and subsequent above the knee amputation, no unfortunately do developed a right heel ulcer the fall of 2022 that is been persistent CHF (congestive heart failure) Hypertension Diabetes mellitus Surgical History Surgical History (Updated 01/13/25 @ 23:34 by Maximino Adkins MD) Status post insertion of dialysis catheter (08/2023) Right subclavian History of left below knee amputation (~12/2022) Due to osteomyelitis Family History Family History Father Diabetes mellitus Hypertension Mother Hypertension Obesity Sibling Diabetes mellitus, Onset Age: 28 Sibling Unknown family medical history Does not see a doctor Diabetes mellitus Social History Social History Social History: The patient reports that 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 Since August 2022 she moved in with her sister. She has had a severe significant decline in her health and December 2022had left above the knee amputation. She has been in out of longterm and rehab facilities since that time. She is a lifelong nonsmoker. She used to rarely smoke marijuana. She had no significant alcohol use history. She does not have any children. Code status: DNR/DNI (per patient request) evidently during prior hospitalization when the patient became unresponsive family change the patient's code status back to (08/13/2023) full code. Surrogate decision maker: Kianna Nunez (sister) Smoking status: Never smoker Alcohol intake: never Substance use: former Substance use type: marijuana Do You Feel Safe in your Home?: Yes Lack of Transportation: No Lack of Food: Never True Current Housing: I Have Housing Concerned About Future Housing: No Difficulty Paying Gas/Electric Bills: No Difficulty Paying for Meds: No Currently Unemployed: No Education: High School Diploma/GED Difficulty w/ Childcare or Family Care: No Spiritual care concerns: No Exam Narrative: GENERAL: Tired but not any distress, answering questions appropriately, keeping her eyes closed but verbalizing appropriately and awake without any stimulation HEAD: [Normocephalic, atraumatic.] EYES: [PERRLA and EOMI.] ENT: Nares clear, no rhinorrhea or epistaxis. Mucous membranes moist. NECK: Supple. CHEST: [Clear to auscultation. No respiratory distress.] Left-sided PermCath without overlying skin changes HEART: [Regular rate and rhythm]. No murmur heard. [Normal peripheral pulses.] ABDOMEN: [Soft, nondistended], [nontender], [No rigidity or guarding] EXTREMITIES: Left BKA, right-sided 1+ edema SKIN: Warm, dry, no rash. NEURO: [No focal deficits]. Alert and oriented [x3.] PSYCH: Expresses suicidal intent Course Vital Signs Vital signs: Vital Signs Temperature 36.9 C 01/13/25 20:00 Pulse Rate 85 01/13/25 20:00 Respiratory Rate 17 01/13/25 20:00 Blood Pressure 117/69 01/13/25 20:00 Pulse Oximetry 98 01/13/25 20:00 Oxygen Delivery Room Air 01/13/25 20:00 Temperature 36.9 C 01/13/25 20:00 Pulse Rate 86 01/13/25 21:22 Respiratory Rate 18 01/13/25 21:22 Blood Pressure 122/80 01/13/25 21:22 Pulse Oximetry 100 01/13/25 21:22 Oxygen Delivery Room Air 01/13/25 20:00 MDM - Overdose MDM Narrative Medical decision making narrative: 34-year-old female with chronic medical conditions including end-stage renal disease on dialysis Friday through a left IJ PermCath, uha-olymzdr-uepbzpclx diabetes, hypertension, neuropathy, left BKA. She presents to the emergency department today for suspected overdose. Patient verbalized that she took an unknown quantity of pills at home that came from a bottle underneath her pillowcase. She has multiple medications with her at bedside and they appear full and no missing medications are noted. Patient is not sure what medication she took. According to the family and the patient's medication list it seems that Lasix and lisinopril are missing from her medications at bedside which could of been the ingested medication. Unknown quantity or if she took the medication. No co ingestions according to the patient. Patient denies any symptoms at this time. She states she is suicidal and does not want to be here. Has not missed any hemodialysis sessions went to dialysis yesterday. Has no fever, chills, tachycardia, hypoxia, blood pressure concerns. She was otherwise in her normal state of health. Has had previous suicide attempts. Patient appears tired but not lethargic as she is easily arousable with verbal and physical stimuli but seems to close her eyes volitionally. Will monitor her on pulse oximetry and painter railroad car. Clear in present injure ordered, toxicological screenings ordered, basic laboratory studies, test, VBG, EKG obtained. Workup shows no leukocytosis, anemia around her baseline. Normal platelet count. VBG shows normal pH, normal pCO2 and bicarb, no acidosis or alkalosis. Chemistry panel shows BUN and creatinine reflective of end-stage renal disease nothing acutely changed. Normal electrolytes with a potassium 3.6. Pseudo hyponatremia 130 and is corrected to normal given her glucose of 599. A1c greater than 14. Mildly elevated LFTs otherwise unremarkable. Normal TSH, negative test. Negative beta hydroxybutyrate. Patient does not make urine so urine drug screen was canceled. Negative COVID test. Negative toxicological screenings, salicylates Tylenol and alcohol level negative. Negative viral panel. Chest x-ray shows congestion but no signs of active infection based on exam and no white count, tachycardia or hypoxia. EKG shows sinus rhythm, no ectopy, no dysrhythmia. Patient was given subcutaneous dose of insulin for her hyperglycemia without ketosis. Still unknown what substance patient has taken but she has been observed for several hours here in the emergency department and her reported ingestion was 6:00 p.m. without any toxidrome or findings on exam or labs which is reassuring. Patient will be medically admitted this time for her hyperglycemia and observation until she can be cleared for psychiatric evaluation. Discussed the case with the hospitalist who accepted the patient but recommended ICU for one-to-one sitter and unknown possible toxic ingestion. Patient was re-evaluated frequently and had no acute complaints while here in the emergency department. Normal vital signs on monitor. Spoke to the materials handling coordinator who recommended insulin drip given her hyperglycemia as well as potassium supplementation and accepted her to the ICU at this time. Family members made aware and agreeable to plan. Medical Records Attestation: I reviewed the patient's medical records. Lab Data Attestation: I reviewed the patient's lab results. 01/13/25 21:15 01/13/25 21:15 Labs: Lab Results 01/13/25 01/13/25 01/13/25 Range/Units 21:15 21:15 22:45 WBC 9.0 (4.5-10.0) K/mm3 RBC 3.61 L (4.2-5.4) M/mm3 Hgb 10.5 L (12.0-15.0) g/dL Hct 33.1 L (37.0-47.0) % MCV 91.7 (80-100) fl MCH 29.1 (26-34) pg MCHC 31.7 L (32-36) g/dl RDW 14.0 (11.5-14.5) % Plt Count 369 (150-375) k/mm3 MPV 10.0 (7.4-10.4) fl Immature Gran % (Auto) 0.4 (0-0.5) % Neut % (Auto) 68.8 (45.5-73.1) % Lymph % (Auto) 18.8 (18.3-44.2) % [place] % (Auto) 7.2 (2.6-8.5) % Eos % (Auto) 4.5 H (0-4.4) % Baso % (Auto) 0.3 (0.2-1.2) % Lymph # (Auto) 1.68 (0.9-3.2) K/mm3 [place] # (Auto) 0.6 (0.1-0.6) K/mm3 Eos # (Auto) 0.4 H (0-0.3) K/mm3 Baso # (Auto) 0.0 (0.0-0.1) K/mm3 Abs Immat Gran (auto) 0.04 H (0.00-0.031) K/mm3 Absolute Neuts (auto) 6.2 (1.3-6.7) K/mm3 Absolute Nucleated RBC 0.000 (0.0-0.012) K/mm3 Nucleated RBC % 0.0 (0.0-0.2) % Sodium 130 L (137-145) mmol/L Potassium 3.6 (3.4-5.0) mmol/L Chloride 98 (98-107) mmol/L Carbon Dioxide 22 (22-30) mmol/L Anion Gap 10 (4-12) mmol/L BUN 24 H D (7-17) mg/dL Creatinine 4.83 H (0.7-1.0) mg/dL Estim Creat Clear Calc Not Reportable Estimated GFR 10 L (59 - ) Glucose 599 H* (65-110) mg/dL POC Capillary Glucose > 500 H* (65-105) mg/dl Hemoglobin A1c > 14.0 H (<5.7) % Calcium 8.6 (8.4-10.2) mg/dL Total Bilirubin 0.7 (0.2-1.3) mg/dL AST 15 (14-36) U/L ALT 13 (6-35) U/L Alkaline Phosphatase 306 H (38-126) U/L Total Protein 7.0 (6.3-8.2) g/dL Albumin 3.4 L (3.5-5.1) g/dL Beta-Hydroxybutyrate/Acetoacetate 0.20 (0.02-0.27) mmol/L TSH 3.780 (0.465-4.680) uIU/mL Serum HCG, Qual Negative Salicylates < 1.0 L (2-20) mg/dL Acetaminophen < 10 L (10-30) ug/mL Ethyl Alcohol < 10 (<10) mg/dL Influenza A (RT-PCR) Negative (Negative) Influenza B (RT-PCR) Negative (Negative) RSV (RT-PCR) Negative (Negative) SARS-CoV-2 RNA (RT-PCR) Negative Negative (Negative) ABG Data ABG results: 01/13/25 21:15 VBG pH 7.366 VBG pCO2 41.5 L VBG pO2 41.0 VBG HCO3 23.2 L O2 Delivery Device Room air O2 Liters/Min Not Reportable FiO2 21 Attestation: I personally reviewed and interpreted this ABG as follows: Interpretation: No acidosis or alkalosis. Normal pH Imaging Data Attestation: I personally reviewed and interpreted this imaging study as follows: My impression: Impressions Chest X-Ray 01/13/25 20:45 IMPRESSION: Bilateral pneumonia. Underlying pulmonary edema is not excluded. Critical Care Time Critical Care Time Critical Care Time: Yes Total Critical Care Time: 50 Discharge Plan Discharge Clinical Impression: Intentional overdose, Hyperglycemia without ketosis, Suicide attempt, End stage chronic kidney disease, Hx of left BKA Patient Disposition: Still a Patient Condition: Guarded Prognosis Patient Language: Cymro Prescriptions: No Action carvedilol 12.5 mg tablet 12.5 mg PO Q12H amlodipine 10 mg tablet 10 mg PO DAILY lisinopril 20 mg Tablet 20 mg PO QAM 30 Days Qty: 30 0RF furosemide 40 mg Tablet 40 mg PO DAILY acetaminophen 500 mg Tablet 500 mg PO Q6H PRN (Reason: Pain, Mild) diphenhydramine HCl 25 mg Capsule 25 mg PO Q8H PRN (Reason: Itching) gabapentin 100 mg Capsule 300 mg PO QMWF glucagon 1 mg Kit 1 mg IM PRN PRN (Reason: Hypoglycemia) Rx Instructions: Inject 1 mL IM as needed for hypoglycemia. May repeat x1 if blood sugar is still below 80 in 30 minutes bisacodyl 10 mg Suppository 10 mg RECTAL DAILY PRN (Reason: Constipation) Rx Instructions: For use of no BM with milk of magnesia. tramadol 50 mg tablet 50 mg PO Q6H PRN (Reason: Moderate Pain (Scale Score 5-6)) Patient Comments: ran out off pills at home doxycycline hyclate 100 mg tablet 100 mg PO Q12H Patient Comments: last pill taken yesterday Eliquis 5 mg tablet 5 mg PO BID Slynd 4 mg (28) tablet 4 mg PO DAILY Trulicity 0.75 mg/0.5 mL pen injector 0.75 mg SUBCUT WEEKLY Patient Comments: takes on friday doxycycline hyclate 100 mg Tablet 100 mg PO Q12HR Qty: 60 0RF Time of Disposition: 23:34
--- OUTSIDE RECORDS SUMMARY | 2025-01-13 21:17 | XMS_ITS | Encounter Summary ---
Author Organization [facility] Health Address [address] [place] [address] Care Team Providers Care Laboratory Engineer Name Role Phone Cherise Patrick PA-C Primary Care Provider Reason for Visit * Reason Onset Date Comments Hospital Admission 04/24/2023 Encounter Details Date Type Department Care Team (Late st Contact Info) Description 04/24/2023 Telephone [facility] [address] [place] [address] Sameer Navarro MD [facility] [phone] Hospital Admission Social History Tobacco [...] and heating? Not hard at all 04/28/2023 [facility] [place] of Occupat ional Health - Occupational Stress [...] place to sleep or slept in a long term (including now)? No 04/28/2023 Sex and Gender [...] Navarro MD - 04/24/2023 12:21 PM CDT [facility] Outside Hospital Transfer Call Documentation Date:04/24/2023 Time:12:21 PM Patient: Gay Canales : 1990 Referring Facility Name: [facility] Reason for Transfer: Right foot debridement vs BKA Brief Description (including applicable labs, imaging, consultations): 32 year old??female??with past medical history of DM 2, HTN, HFpEF, ??morbid obesity, MDD , status post left AKA in November, at [facility] when she presented with necrotizing fasciitis and [...] GIbleeding now. Patient needs on arrival to [facility]: Medicine admissions resident (ask rafter cutting machine operator for Medicine Admission) to be notified of arrival. Consultation to (N/A if blank): Vascular/general surgery I have accepted this patient for transfer to [facility]. If patient awaiting bed for >24hours, an [...] documented as of this encounter Care Teams Laboratory Engineer Relationship Specialty Start Date End Date Cherise Patrick PA-C [address] [place] [id number] PCP - General 02/23/24 documented as of this encounter
--- OUTSIDE RECORDS SUMMARY | 2025-01-13 21:18 | XMS_ITS | Encounter Summary ---
Author Organization [facility] Address [address] [place] [address] Phone Care Team Providers Care Slubber Machine Operator Name Role Phone Cherise Patrick Primary Care Provider [phone] Reason for Visit * Reason Comments Post-op - Cataract Encounter Details Date Type Department Care Team (Late st Contact Info) Description 01/11/2025 9:15 AM CDT Office Visit [facility] Ophthalmology [address], [address] [place] [address] Bita Vega MD [address] [place] [address] Pseudophakia, right eye (Primary Dx) Social History Tobacco Use Types [...] Never 04/16/2023 How often do you attend lutheran or congregation serv ices? Never 04/16/2023 Do you belong to any clubs o r organizations such as lutheran groups, unions, fraternal or athletic groups, or school groups? No 04/16/2023 How often do you attend meet ings of the clubs or organizations you belong to? Never 04/16/2023 Are you , , di vorced, , never , or living with a partner? Never 04/16/2023 AUDIT-C Answer Date Recorded Q1: How often do you have a drink containing alcohol? Never 01/10/2025 Q2: How many drinks containi ng alcohol do you have on a typical day when you are drinking? Patient does not drink Q3: How often do you have si x or more drinks on one occasion? Never 01/10/2025 Overall Financial Resource Strain (CARDIA) Answe r [...] slept in a halfway (including now)? No 04/16/2023 Housing Stability Vital [...] making you feel afraid or unsafe? Denies 01/10/2025 Comments No Sex and Gender Information Value Date Recorded Sex Assigned at Not on file Legal Sex Female 8:53 PM GENERAL SURGERY PHYSICIAN ASSISTANT Gender Identity Female 12/23/2024 9:35 AM GENERAL SURGERY PHYSICIAN ASSISTANT Sexual Orientation Straight 12/23/2024 9: 35 AM GENERAL SURGERY PHYSICIAN ASSISTANT documented as of this encounter Patient Instructions * Patient Instructions* Bita Vega MD - 01/11/2025 9:15 AM CDT Drop Instructions for Eye Surgery Prednisolone acetate (pink or white cap drop) Moxifloxacin or Ofloxacin (hoyos cap drop) Ketorolac (chopra cap top) Week 1 Day 0 ? Day 1 ? Day 2 ? Day 3 ? Day 4 ? Day 5 ? Day 6 ? Day 7 ? Week 2 Day 8 ? ? ? STOP ? ? ? Day 9 ? Day 10 ? Day 11 ? Day 12 ? Day 13 ? Day 14 ? Week 3 Day 15 ? Day 16 ? Day 17 ? Day 18 ? Day 19 ? Day 20 ? Day 21 ? Week 4 Day 22 ? ? Day 23 ? ? Day 24 ? ? Day 25 ? ? Day 26 ? ? Day 27 ? ? Day 28 ? ? documented in this encounter Progress Notes * Bita Vega MD - 01/11/2025 9:15 AM CDT Assessment and Plan POD1 Complex Extraction Cataract - Phacoemulsification And Lens Implant - Right Normal postoperative healing. Postoperative instructions were given. The patient is to use: - Moxifloxacin QID X 1 week - Prednisolone Acetate 1% QID - Ketorolac QID if prescribed Follow drop taper Patient is to wear the shield at bedtime X 1 week. Signs, symptoms of retinal detachment, tear, hole, and endophthalmitis were reviewed and the patient is to call immediately for concerns. We discussed that things should improve until they stabilize. Should there be any worsening of pain, vision, or redness the patient is to call. Fu 2 weeks iop check * Bennett Conklin - 01/11/2025 9:15 AM CDT Called pt to sched an appt in 2-3wks. She was at dialysis, left a msg with sister, Juanita, to call us back at [phone] * Bennett Conklin - 01/11/2025 9:15 AM CDT Pt's contact/sister, Juanita, called back. Pt is sched for 01/31/25 documented in this encounter Plan of Treatment Not on file documented as of this encounter Visit Diagnoses Diagnosis Pseudophakia, right eye- Primary Lens replaced by other means documented in this encounter Eye Exam Visual Acuity (Snellen - Linear) Right eye Left eye Dist sc HM@face Tonometry (Tonopen, 9:37 AM) Right eye Left eye Pressure 18 Pupils Dark Light Shape React Right eye 8 8 Round NR Left eye cloudy Neuro/Psych Oriented x3: Yes Mood/Affect: Normal External Exam Right eye Left eye External Normal Slit Lamp Exam Right eye Left eye Lids/Lashes Normal Conjunctiva/Sclera White and quiet Cornea ebony neg Anterior Chamber tr cell Iris Round and reactive Lens PCIOL Fundus Exam Right eye Left eye Periphery poor view, funnel rd Care Teams Slubber Machine Operator Relationship Specialty Start Date End Date Cherise Patrick PA [facility] [place] [address] PCP - General Physician Drum Loader And Unloader 02/20/23 documented as of this encounter
--- OUTSIDE RECORDS SUMMARY | 2025-01-13 21:18 | XMS_ITS | Data Portability ---
Author Organization [place] - [facility] OFFICE Address [address] [place] [address] Assessment Encounter Date Assessment Date Assessment LastModified [...] None recorded. Imaging electrocard iogram 2022 023 [facility] Radiology-[facility], [facility] [place], [address], 3 16:58:23 Medication Orders potassium chloride ER 20 mEq tablet,exte nded release 2022 023 [facility] [address] [place], [address], 3 17:02:16 Lasix 20 mg tablet 2022 023 [facility] [address] [place], [address], 3 17:02:18 losartan 25 mg tablet 2022 023 [facility] [address] [place], [address], 3 17:02:17 Patient TargetsNo targets recorded. Patient Instructions Encounter Date Encounter Id Patient Instructions Last Modified By Organization Details Last Modified Time 03/18/2023 [id number] type 2 diabetes: care instructions eyassin Not [...] Time Uncontro lled type 2 diabetes mellitus 151104920 Active 2022 [place], [place] - [facility] 15:53:39 Hyperten sive disorder 51234854 Active 2022 [place] Avit[place] null, [place] - [facility] 3 15:53:37 Edema 972640012 Active 2022 Mike Moses [place], [place] - [facility] 3 11:51:16 [facility] days [id number] 06 Completed 202203/05/2023 Mike Moses [place], [place] - [facility] 3 11:55:46 Amputate d left lower limb below knee 411803676 Active 2022 [place] Av[place], [place] - [facility] 3 15:56:28 Dyspnea on exertion 25932192 Active 2022 [place] - [facility] 3 13:46:03 Edema of lower extremit y 383816984 Active 2022 [place] Avit[place], [place] - [...] Address Organization Details Last Updated DateTime 3 800936. 34 g 50.6 kg/m2 170.18 cm 71 /min 87 % 87 % 150 mm[Hg] 100 mm[Hg] Joseph Moses [facility] 3 16:35:36 Social History Question Answer Notes LastModified by Organizat ion Details LastModified Time Tobacco Smoking Status Never Smoker Mike Moses [facility] 03/05/2023 13:06:35 What Is Your Level [...] Or The Highest Degree You Have Received? [id number] Information not available 03/05/2023 Are There Any [...] Anxious, Or Unable To Sleep At Night)? [id number] Information not available 03/18/2023 Do You Use [...] SNOMED-CT Code Diagnosis ICD10 Code Diagnosis Note [id number] CARLEEN [facility] [place] OFFICE [address] [place] [address] 03/18/2023 14:45:35 03/18/2023 17:04:19 Essential hypertension 76561956 I10 elevated todayshe is taking amlodipin 10 mg and coreg 12.5 mg dailystart ing losartan 25 mg daily Type 2 jassi betes mellitus without complication 846128947 E11.9 controlled by PCP Dyspnea on exertion 6084 5006 R06.09 will do echo to see the structure of her heart Lexiscan Myoview stress test, pt can not walk. Has known coronary artery disease, with atypical symptoms now Edema of l ower extremity 214968277 R60.0 will start her on lasix 20 mg BID daily Health Concerns Section Related Observation LastModified by Organization Detai ls LastModified Time None Recorded Concern Status LastModified by Organization Details LastModified Time None Recorded Advance Directives Directive None Recorded Payers Encounter Date Sequence Insurance Name Policy Number Policy Bobo Covered Member ID Bobo Member ID Guarantor Name 03/18/2023 1 [place] [facility] (MEDICAID REPLACEMENT - HMO) [id number] Gay Mata [id number] Gay Mata Notes Date Note Type [...]
--- OUTSIDE RECORDS SUMMARY | 2025-01-13 21:18 | XMS_ITS | Encounter Summary ---
Author Organization [facility] Address [address] [place] [address] Phone Care Team Providers Care Social Science Manager Name Role Phone Cherise Patrick Primary Care Provider [phone] Encounter Details Date Type Department Care Team (Late st Contact Info) Description 01/12/2025 Telephone [facility] Ophthalmology [address] [place] [address] Nancie Hoyos MD [address] [place] [address] [address] [place] [address] Social History Tobacco Use Types Packs/Day Years Used Date Smoking Tobacco: Never Smokeless Tobacco: Never Social Connection and Isolation Panel [NHANES] A nswer Date Recorded In a typical week, how many times do you talk on the phone with family, friends, or neighbors? Never 04/16/2023 How often do you get together with friends or re latives? Never 04/16/2023 How often do you attend baptist or samaritan serv ices? Never 04/16/2023 Do you belong to any clubs o r organizations such as baptist groups, unions, fraternal or athletic groups, or [...] [facility] (including now)? No 04/16/2023 Housing Stability Vital [...] on file Legal Sex Female 8:53 PM GLASS GLAZIER Gender Identity Female 12/23/2024 9:35 AM GLASS GLAZIER Sexual Orientation Straight 12/23/2024 9: 35 AM GLASS GLAZIER documented as of this encounter Miscellaneous Notes * Telephone Encounter - Bennett Conklin - 01/12/2025 8:39 AM CDT Called pt to sched an appt with Dr Hoyos within 2-[address] Vega & Dr Hoyos. Pt was at dialysis & had to leave a msg with Pt's sister, Juanita, for her to call us back at [phone] to get sched. documented in this encounter Plan of Treatment Not on file documented as of this encounter Visit Diagnoses Not on filedocumented in this encounter Care Teams Social Science Manager Relationship Specialty Start Date End Date Cherise Patrick PA [address] [place] [address] PCP - General Physician Associate Merchandise Planner 02/20/23 documented as of this encounter
--- OUTSIDE RECORDS SUMMARY | 2025-01-13 21:18 | XMS_ITS | Encounter Summary ---
Author Organization [facility] Address [address] [facility] [place] [address] Care Team Providers Care Brick Sorter Name Role Phone Cherise Patrick PA-C Primary Care Provider [phone] Encounter Details Date Type Department Care Team (Late st Contact Info) Description 09/17/2024 Telephone [facility] - Infectious Disease [address] [place] [address] Kash Ha MD [address] [place] [address] Social History Tobacco Use Types Packs/Day Years [...] Date Recorded PHQ2 TOTAL SCORE 0 06/10/2023 [facility] - [facility] [...] IR should be notified and order it. 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
--- OUTSIDE RECORDS SUMMARY | 2025-01-13 21:19 | XMS_ITS ---
Author Organization [facility] Care Team Providers [employer] Leader Name Role Phone Mayra Zaman Unavailable Unavaila dilma Simmons, Tyrel Maria Unavailable Unavailable Ampadu, Deyanira Unavailable Unavailable Fashweta, Laina Unavailable Unavailable Allergies and adverse reactions No Known Allergies Care Team Name Role Address Phone Organization Dates Tyrel Simmons PCP [address] [place], [place], [facility], [facility] (Office): [facility] 08/24/2023 - 10/03/2023 Mayra Zaman Attending Physician [address], [place], [address] [place] [address] (Office): : [facility] 08/24/2023 - 10/03/2023 Deyanira Simmons Attending Physician [address] [place], [place], [address] [place] [address] (Office): : [facility] 08/24/2023 - 10/03/2023 Laina Lanza Attending Physician [address] [place] [address], [facility], [facility] (Office): [facility] 08/24/2023 - 10/03/2023 Goals Section Description Status Target Date Resolve the resident's infection Active 12/14/2023 Current level of care is fabien ropriate considering current physical/ social/ emotional status. Active 12/14/2023 If the resident's heart stop s, or if they stop breathing, CPR WILL be initiated in honor with their FULL code wishes. Active 09/2024 Minimize complications related to COVID-19 infec tion Active 12/14/2023 Minimize the risk of residen t exposure to the novel Coronavirus (COVID-19). Active 12/14/2023 Prevent a serious fall related injury Active 12/14/2023 Resident Discharge needs will be identified Acti ve 12/14/2023 Resident to maintain Isolation as directed Activ e 12/14/2023 Resident will be able to par ticipate in enjoyable activities during their stay Active 12/14/2023 Resident will be free from c omplications related to skin impairment. Active 12/14/2023 Resident will be free of com plications related to ADL deficit through next review date: Active 12/14/2023 Resident will be kept clean and comfortable through next review date. Active 12/14/2023 Resident will be kept clean, dry and comfortable daily through next review Active 12/14/2023 Resident will be maintained at their respiratory baseline with a patent airway and unlabored respirations through next review date. Active 12/14/2023 Resident will have a regular bowel elimination pattern AEB soft/formed bowel movements at least once every three days through the next review: Active 12/14/2023 Resident will have adequate fluid volume balance AEB good skin turgor, pink & moist mucous membranes, and sufficient fluid intake through next review date Active 12/14/2023 Resident will have adequate fluid volume balance AEB good skin turgor, pink & moist mucous membranes, and sufficient fluid intake through next review. Active 12/14/2023 Resident will have assistanc e needed to follow partial weight-bearing instructions Active 12/14/2023 Resident will maintain a saf e and highest level of functioning through next review Active 12/14/2023 Resident will maintain intac t skin or current condition of skin integrity through next review date. Active 12/14/2023 Resident will not develop an y complications associated with incontinence through next review. Active 12/14/2023 Resident will not develop any new areas of skin breakdown. Active 12/14/2023 Resident will not develop co mplications related to peritoneal dialysis through next review date. Active 12/14/2023 Resident will not experience a decline in overall function related to pain through next review date. Active 12/14/2023 Resident will not experience serious side effects due to medication use. Active 12/14/2023 Resident will not have any s erious side effects related to cardiovascular medications and will not have any unrecognized signs of a worsening cardiovascular condition Active 12/14/19 Resident will remain free fr om discomfort or further complications related to renal disease. Active 12/14/2023 Resident will state/demonstr ate relief or reduction in pain intensity within one hour after receiving interventions through next review date. Active 12/14/2023 Resident with be treated wit h respect and dignity as an individual, and staff will address, supports and/or enhances his/her feelings of self-worth including personal control over choices and cultural preferences. Active 12/14/2023 Resident's area of skin impa irment will remain free from infection. Active 12/14/2023 Residents preferences will be honored as able Ac tive 12/14/2023 Residents respiratory condit ion will be managed and will experience no serious side effects from medications Active The patient will display adequate nutrition Acti ve 12/14/2023 The resident will be able to communicate needs daily through the review date. Active 12/14/2023 The resident will be free fr om s/sx of new complications of neurological disorder through review date. Active 12/14/2023 The resident will be kept cl aaron and comfortable through next review date. Active 12/14/2023 The resident will have impro [place] mood state (SPECIFY: happier, calmer appearance, no s/sx of depression, anxiety or sadness) through the review date. Active 12/14/2023 The resident will have no in dications of psychosocial well-being problem by/through review date Active 12/14/2023 The resident will have no in dications of psychosocial well-being problem by/through review date. Active 12/14/2023 The resident will have no s/ sx of complications from hemodialysis through the review date. Active 12/14/2023 The resident will maintain c urrent level of ADL function through the review date. Active 12/14/2023 The resident will maintain o ptimal quality of life within limitation imposed by visual function through the review date. Active 12/14/2023 The resident will maintain o ptimal status and quality of life within limitations imposed by neurological deficits through review date. Active 12/14/2023 The resident will not have a n interruption in normal activities due to pain through the review date. Active 12/14/2023 Immunizations Immunization Status Vaccine Details Vaccine Code CodeSystem Date Notes Flucelvax (Influenza vaccine) cancelled Influenza, split virus, quadrivalent, injectable, preservative free 150 CVX created date: 09/03/2023 consent date: 09/03/2023 COVID Vaccine (Moderna Spikevax) cancelled SARS-COV-2 (COVID-19) vaccine, mRNA, spike protein, LNP, preservative free, 50 mcg/0.5 mL dose 312 CVX created date: 10/07/2023 consent date: 10/07/2023 Educated by Nathalie Chavira RN on 10/07/2023 Medications Section Medication Name Status Code CodeSystem Dose Route Frequency Admin Type Sig Text Start Date End Date Milk of Magnesia Suspension 400 MG/5ML active 676914 RXNORM 30 ml Oral as needed PRN Give 30 ml by mouth as needed for Consti pation at bedtim e if not BM in 3 days 2022 - Bisacodyl Suppository 10 MG active 686786 RXNORM 1 suppos itory Rectal as needed PRN Insert 1 suppos itory rectal ly as needed for for consti pation daily if no result s for MOM 2022 - Fleet Enema active 1 applic ation Rectal as needed PRN Insert 1 applic ation rectal ly as needed for for consti pation If no result s 1 day after suppos itory. 2022 - Citroma Solution 1.745 GM/30ML active 7781634 RXNORM 296 ml Oral as needed PRN Give 296 ml by mouth as needed for consti pation In AM if no result s after enema. If no result s within 1 hour of comple tion of bowel protoc ol, contac t immedi ately for furthe r orders . 2022 - Multivitamin Adults Oral Tablet active 1 tablet Oral one time a day Routine Give 1 tablet by mouth one time a day for Vitami n Supple ment 2022 - Potassium Chloride ER Oral Tablet Extended Release 20 MEQ active 19801108 RXNORM 20 mEq Oral one time a day Routine Give 20 mEq by mouth one time a day for supple ment 2022 - metOLazone Oral Tablet 10 MG active 19790510 RXNORM 10 mg Oral one time a day Routine Give 10 mg by mouth one time a day for Elevat ed Blood Pressu re 2022 - Ondansetron HCl Oral Tablet 4 MG active 19800304 RXNORM 4 mg Oral three times a day Routine Give 4 mg by mouth three times a day for Nausea 2022 - traMADol HCl Oral Tablet 50 MG active 719823 RXNORM 50 mg Oral as needed PRN Give 50 mg by mouth every 6 hours as needed for Modera te Pain 2022 - Nystatin External Powder 692320 UNIT/GM active 923572 RXNORM n/a n/a Topical as needed PRN Apply to groin and abdomi nal folds topica lly as needed for Rash;S kin Protec tant 2022 - Bumetanide Oral Tablet 1 MG active 19731110 RXNORM 2 mg Oral two times a day Routine Give 2 mg by mouth two times a day for chf 2022 - Ascorbic Acid Oral Tablet 500 MG active 240355 RXNORM 500 mg Oral two times a day Routine Give 500 mg by mouth two times a day for Vitami n Supple ment 2022 - Carvedilol Oral Tablet 12.5 MG active 20000103 RXNORM 12.5 mg Oral two times a day Routine Give 12.5 mg by mouth two times a day for Irregu lar Heartb eat 2022 - Insulin Lispro (1 Unit Dial) Subcutaneous Solution Pen-injector 100 UNIT/ML active 7083434 RXNORM n/a n/a Subcuta neous three times a day Routine Inject as per slelissa g scale: if 200 - 250 = 2 units; 251 - 300 = 4 units; 301 - 350 = 6 units; 351 - 400 = 8 units over 400 notify , subcut aneous ly three times a day for DM 2022 - Ferrous Sulfate Oral Tablet Delayed Release 325 (65 Fe) MG active 741398 RXNORM 325 mg Oral one time a day Routine Give 325 mg by mouth one time a day for supple ment 2022 - Lisinopril Oral Tablet 20 MG active 209437 RXNORM 20 mg Oral in the morning Routine Give 20 mg by mouth in the mornin g for Elevat ed Blood Pressu re 2022 - amLODIPine Besylate Oral Tablet 10 MG active 250352 RXNORM 10 mg Oral one time a day Routine Give 10 mg by mouth one time a day for Elevat ed Blood Pressu re 2022 - Loperamide HCl Oral Capsule 2 MG active 788202 RXNORM 2 mg Oral as needed PRN Give 2 mg by mouth every 8 hours as needed for Diarrh ea 2022 - Glucagon Emergency Kit 1 MG active 132862 RXNORM 1 ml Intramu scular as needed PRN Inject 1 ml intram uscula rly as needed for hypogl ycemia May give as needed for blood sugar below 50. May repeat x 1 if blood sugar is still below 80 in 30 minute s 2022 - Acetaminophen Tablet 325 MG active 831027 RXNORM 2 tablet Oral as needed PRN Give 2 tablet by mouth every 4 hours as needed for Mild Pain, NTE 3 Grams in 24 hours/ fever Non-Ph arm Interv ention s- 1 =music , aromat herapy , light touch/ massag e 2 =Remin iscenc e,real ity orient ation, valida tion therap y 3 =exerc ise, activi ties 4 =1:1 intera ction, pet therap y 5 =Reduc ed stimul ation, quiet area 2022 - Ondansetron HCl Tablet 4 MG active 654179 RXNORM 1 tablet Oral as needed PRN Give 1 tablet by mouth every 6 hours as needed for Nausea and Vomiti ng 2022 - Melatonin Tablet 5 MG active 190064 RXNORM 5 mg Oral as needed PRN Give 5 mg by mouth every 24 hours as needed for Prophy laxis 2022 - Arginaid Oral Packet active 1 packet Oral in the morning Routine Give 1 packet by mouth in the mornin g for Vitami n Supple ment 2022 - Mental Status Section Date Assessment Total Score Description 08/30/2023 BIMS 15 cognitively int act CAM 0 No delirium ind icated Problems Problem # Description Date of onset Resolved Date Code CodeSystem Concern Status 1 COVID-[address] active 2 ABNORMAL COAGULATION PROFILE [address] active 3 ACQUIRED ABSENCE OF LEFT LEG ABOVE KNEE [address] active 4 ACUTE PERICARDITIS, UNSPECIFIED [address] active 5 ACUTE PULMONARY EDEMA [address] active 6 ANEMIA, UNSPECIFIED [address] active 7 BODY MASS INDEX [BMI] 37.0-37.9, ADULT [address] active 8 [address]OME[address]Y [address] active 9 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 [address] active 10 CHRONIC KIDNEY DISEASE, STAGE 3B [address] active 11 CHRONIC RESPIRATORY FAILURE WITH HYPOXIA [address] active 12 DEPENDENCE ON RENAL DIALYSIS [address] active 13 DISORDER OF KIDNEY AND URETER, UNSPECIFIED [address] active 14 END STAGE RENAL DISEASE [address] active 15 ESSENTIAL (PRIMARY) HYPERTENSION [address] active 16 FLUID OVERLOAD, UNSPECIFIED [address] active 17 GENERALIZED EDEMA [address] active 18 HEART FAILURE, UNSPECIFIED [address] active 19 HYPERLIPIDEMIA, UNSPECIFIED [address] active 20 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 [address] active 21 LOCALIZED ENLARGED LYMPH NODES [address] active 22 LOW VISION RIGHT EYE CATEGORY 2, BLINDNESS LEFT EYE CATEGORY [address] active 23 MORBID (SEVERE) OBESITY DUE TO EXCESS CALORIES [address] active 24 MUSCLE WEAKNESS (GENERALIZED) [address] active 25 NEED FOR ASSISTANCE WITH PERSONAL CARE [address] active 26 NEPHROTIC SYNDROME WITH UNSPECIFIED MORPHOLOGIC CHANGES [address] active 27 NON-PRESSURE CHRONIC ULCER OF UNSPECIFIED HEEL AND MIDFOOT WITH UNSPECIFIED SEVERITY [address] active 28 OBSTRUCTIVE SLEEP APNEA (ADULT) (PEDIATRIC) [address] active 29 ORTHOPNEA [address] active 30 OTHER FATIGUE [address] active 31 PLEURAL EFFUSION, NOT ELSEWHERE CLASSIFIED [address] active 32 PROTEINURIA, UNSPECIFIED [address] active 33 TYPE 2 DIABETES MELLITUS WITH DIABETIC CHRONIC KIDNEY DISEASE [address] active 34 TYPE 2 DIABETES MELLITUS WITH DIABETIC NEPHROPATHY [address] active 35 TYPE 2 DIABETES MELLITUS WITH DIABETIC NEUROPATHY, UNSPECIFIED [address] active 36 TYPE 2 DIABETES MELLITUS WITH UNSPECIFIED DIABETIC RETINOPATHY WITHOUT MACULAR EDEMA [address] active Reason for Referral No Reasons for Referral Entered Social History Social History Observation Description Start Date End Date Code Code System Current Smoking Status Tobacco smoking consumption unknown 041179643 SNOMED CT Sex Assigned At Female 1990 14059-1 [facility] Vital Signs Code Code System Vitals Name Values and Units Timing Information 36990-4 [facility] Pain Level Value=0.0 10/19/2023 8462-4 [facility] Blood Pressure-Diastolic Szagk=385 U nits=mmHg 10/19/2023 8480-6 [facility] Blood Pressure-Systolic Hjjoe=069 Un its=mmHg 10/19/2023 8867-4 [facility] Heart rate Value=93.0 Units=/min 9279-1 [facility] Respiratory Rate Value=20.0 Units=/m in 10/19/2023 8310-5 [facility] Body Temperature Value=97.9 Units= F 10/19/2023 65297-1 [facility] O2 % BldC Oximetry Value=99.0 Units= % 10/19/2023 2339-0 [facility] Blood Sugar Iupgu=514.0 Units=mg/dL 10/19/2023 97550-5 [facility] Weight Lkpyg=213.8 Units=Lbs 07/2023 8302-2 [facility] Height Value=67.0 Units=Inches 08/25/2023
--- OUTSIDE RECORDS SUMMARY | 2025-01-13 21:19 | XMS_ITS | Referral Summary ---
Author Organization [facility] [place] Address [address] [place] [address] Care Team Providers Care Test Engine Mechanic Name Role Phone Cherise Patrick PA-C Primary Care Provider Source Comments [facility],non-owned Affiliates and Associated Physician Practices is amultiple site organization consisting of ambulatory clinics and hospital sitesin [place], [place], [place] and [place]. This disclosure is being madepursuant to the Care Everywhere program and may not contain all information available regarding this patient. Last updated 18.[facility] [place] Encounters Date Type Department Care Team Description 11/22/2024 Travel 11/22/2024 1:30 PM BREEDER SERVICE TECHNICIAN Office Visit 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 Alwaysverify current medications with the patient. Medication Sig Dispensed Refills Start Date End Date Status blood glucose (OneTouch Verio) test stripIndications:H yperglycemia USE ONE STRIP TO TEST BLOOD SUGAR [...] Lancets (ONETOUCH DELICA PLUS 33G EXTRA FINE LANCET)Indications :Hyperglycemia USE ONE LANCET TO PRICK FINGER FOUR TIMES DAILY FOR BLOOD GLUCOSE TESTING 100 Each 12/12/2022 Active Additional Information Patient not taking.Reason: Patient adjusted, Informant: Patient, Reported on 08/27/2024 Blood Glucose Monitoring Suppl (OneTouch Verio Reflect) w/Device KITIndications:SELMA Erik ZAMAN WHEN DELIVERING [id number] Use 1 kit [...] 08/09/2024 Active lisinopril (Prinivil; Zestril) 20 MG tabletIndications: Hypertension, unspecified type Take 1 (one) tablet by mouth once daily 30 tablet 08/24/2024 Active oxyCODONE, immediate release, (Roxicodone) 10 MG tabletIndications: Acute Pain Take 1 (one) tablet by mouth [...] for 30 days 12 tablet 09/02/2024 Active Active Problems Problem Noted Date Diagnosed [...] Date Recorded PHQ2 TOTAL SCORE 0 06/10/2023 [facility] - Occupational Stress Questionnaire Answer Date Recorded [...] place to sleep or slept in a prison (including now)? No 07/26/2024 Sex and Gender Information Value Date Recorded Sex Assigned at Not on file Gender Identity Not on file Sexual Orientation Not on file Last Filed Vital Signs Vital Sign Reading Time Taken Comments Blood Pressure 119/83 11/22/2024 1:44 PM BREEDER SERVICE TECHNICIAN Pulse 96 11/22/2024 1:44 PM BREEDER SERVICE TECHNICIAN Temperature 36.3 C (97.3 F) 11/22/2024 1:44 PM BREEDER SERVICE TECHNICIAN Respiratory Rate 18 11/22/2024 1:44 PM BREEDER SERVICE TECHNICIAN Oxygen Saturation 99% 11/22/2024 1:44 PM BREEDER SERVICE TECHNICIAN Inhaled Oxygen Concentration - - Weight 111.1 kg (245 lb) 11/22/2024 1:44 PM BREEDER SERVICE TECHNICIAN Height 170.2 cm (5' 7 ) 11/22/2024 1:44 PM BREEDER SERVICE TECHNICIAN Body Mass Index 38.37 11/22/2024 1:44 PM BREEDER SERVICE TECHNICIAN Functional Status Functional Status Response Date of [...] concentrating/remembering/making decisions? No 07/26/2024 Plan of Treatment Not on file Medical Devices Implanted Type Area Button Clamper Device Identifier Shelf Expiration Date Model / Serial / Lot Kit Durathane Drflw Embosafe Chrnc Dlys Implanted:Qty: 1 on 02/25/2024 by Artie Harmon MD at [facility] Right: Chest [employer] 07/03/2026 [id number] / / [id number] Description:IMPLANTED BY DR. JUAN Gill Durathane Drflw Embosafe Chrnc Dlys Implanted:Qty: 1 on 08/06/2024 by Artie Harmon MD at [facility] Left: Chest Wall [employer] 07/03/2026 [id number] / / [id number] Description:Implanted in the left chest wall, via the [facility], by Dr. Candy Harmon. Procedures Procedure Name Priority Date/Time Associated Diagnosis Comments C-REACTIVE PROTEIN Routine 11/22/2024 2: 22 PM BREEDER SERVICE TECHNICIAN 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HCC) MRSA bacteremia ERYTHROCYTE SEDIMENTATION RATE Routine 11/22/2024 2:22 PM BREEDER SERVICE TECHNICIAN 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HCC) MRSA bacteremia COMPREHENSIVE METABOLIC PANEL Routine 11/22/2024 2:22 PM BREEDER SERVICE TECHNICIAN 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HCC) MRSA bacteremia CBC W AUTO DIFFERENTIAL Routine 11/22/2024 2:22 PM BREEDER SERVICE TECHNICIAN 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HCC) MRSA bacteremia HEMOGLOBIN A1C Routine 08/28/2024 8:29 PM CDT HEPATITIS C AB SCREEN RFLX NAAT QUANT Routine 05/31/2024 6:38 PM CDT HIV-1 HIV-2 ANTIBODY + HIV P24 AG PANEL STAT 02/24/2024 8:57 AM CDT from Last 3 Months or Most Recently Relevant to Health Maintenance Results * (ABNORMAL) C-REACTIVE PROTEIN (11/22/2024 2:22 PM BREEDER SERVICE TECHNICIAN) Pathologist [facility] C-Reactive Protein 1.4(H) <=0.5 mg/dL 11/22/2024 4:22 PM BREEDER SERVICE TECHNICIAN [facility] Blood BLOOD SPECIMEN / Unknown Lab Venipuncture / Unknown 11/22/2024 2:22 PM BREEDER SERVICE TECHNICIAN 11/22/2024 3:56 PM BREEDER SERVICE TECHNICIAN Kash Ha MD LAB - CHEMISTRY ORDE WADE [address] [address], [place] [phone] * (ABNORMAL) ERYTHROCYTE SEDIMENTATION RATE (11/22/2024 2:22 PM BREEDER SERVICE TECHNICIAN) Pathologist [facility] Erythrocyte Sedimentation Rate Westergren 46(H) 0 - 20 MM/HR 11/22/2024 4:12 PM BREEDER SERVICE TECHNICIAN [facility] Blood BLOOD SPECIMEN / Unknown Lab Venipuncture / Unknown 11/22/2024 2:22 PM BREEDER SERVICE TECHNICIAN 11/22/2024 3:56 PM BREEDER SERVICE TECHNICIAN Kash Ha MD LAB - HEMATOLOGY ORD ERABLES [address] [address], [place] [phone] * (ABNORMAL) CBC WITH DIFFERENTIAL (11/22/2024 2:22 PM [facility]) WBC 13.6(H) 4.0 - 10.7 x10E9/L 11/22/2024 4:03 PM [facility] RBC Count 4.45 3.90 - 5.20 x10E12/L 11/22/2024 4:03 PM [facility] Hemoglobin 13.1 11.9 - 15.8 g/dL 11/22/2024 4:03 PM [facility] Hematocrit 41.5 34.8 - 46.1 % 11/22/2024 4:03 PM [facility] MCV 93.3 80.0 - 98.0 fL 11/22/2024 4:03 PM [facility] MCH 29.4 26.7 - 33.6 pg 11/22/2024 4:03 PM [facility] MCHC 31.6(L) 31.7 - 36.3 g/dL 11/22/2024 4:03 PM [facility] RDW-CV 13.2 11.3 - 14.8 % 11/22/2024 4:03 PM [facility] Platelet Count 376 150 - 420 x10E9/L 11/22/2024 4:03 PM [facility] MPV 10.2 7.8 - 11.4 fL 11/22/2024 4:03 PM [facility] Neutrophil % 68.3 41.0 - 74.0 % 11/22/2024 4:03 PM [facility] Lymphocyte % 21.9 17.0 - 47.0 % 11/22/2024 4:03 PM [facility] Monocyte % 5.5 3.0 - 11.0 % 11/22/2024 4:03 PM [facility] Eosinophil % 3.2 0.0 - 7.0 % 11/22/2024 4:03 PM [facility] Basophil % 0.4 0.0 - 1.6 % 11/22/2024 4:03 PM [facility] Immature Granulocytes % 0.7 0.0 - 1.0 % 11/22/2024 4:03 PM [facility] Neutrophil Absolute 9.32(H) 1.60 - 7.50 x10E9/L 11/22/2024 4:03 PM [facility] Lymphocyte Absolute 2.99 1.00 - 4.40 x10E9/L 11/22/2024 4:03 PM [facility] Monocyte Absolute 0.75 0.15 - 1.00 x10E9/L 11/22/2024 4:03 PM [facility] Eosinophil Absolute 0.43 0.00 - 0.60 x10E9/L 11/22/2024 4:03 PM [facility] Basophil Absolute 0.05 0.00 - 0.13 x10E9/L 11/22/2024 4:03 PM [facility] Blood BLOOD SPECIMEN / Unknown Lab Venipuncture / Unknown 11/22/2024 2:22 PM BREEDER SERVICE TECHNICIAN 11/22/2024 3:56 PM [facility] Kash Ha MD LAB - HEMATOLOGY ORD ERABLES [facility] [address] [place] [address], [facility] [phone] * (ABNORMAL) COMPREHENSIVE METABOLIC PANEL (11/22/2024 2:22 PM BREEDER SERVICE TECHNICIAN) BUN 23 7 - 26 mg/dL 11/22/2024 4:22 PM [facility] Creatinine 3.71(H) 0.56 - 0.96 mg/dL 11/22/2024 4:22 PM [facility] Sodium 134(L) 136 - 145 mmol/L 11/22/2024 4:22 PM [facility] Potassium 4.6(H) 3.5 - 4.5 mmol/L 11/22/2024 4:22 PM [facility] Chloride 103 98 - 107 mmol/L 11/22/2024 4:22 PM [facility] CO2 21(L) 22 - 29 mmol/L 11/22/2024 4:22 PM [facility] Glucose 295(H) 70 - 99 mg/dL 11/22/2024 4:22 PM [facility] Calcium 8.7 8.4 - 10.2 mg/dL 11/22/2024 4:22 PM [facility] Protein Total 7.9 6.0 - 8.3 g/dL 11/22/2024 4:22 PM [facility] Albumin 3.1(L) 3.4 - 5.0 g/dL 11/22/2024 4:22 PM [facility] Bilirubin Total 0.2 0.2 - 1.2 mg/dL 11/22/2024 4:22 PM [facility] Alkaline Phosphatase 263(H) 40 - 150 U/L 11/22/2024 4:22 PM [facility] ALT 15 5 - 55 U/L 11/22/2024 4:22 PM [facility] AST 12 5 - 34 U/L 11/22/2024 4:22 PM [facility] Anion Gap 10 6 - 16 11/22/2024 4:22 PM [facility] BUN/Creatinine Ratio 6(L) 7 - 23 11/22/2024 4:22 PM [facility] Osmolality Calculated 293 275 - 295 mOsm/kg 11/22/2024 4:22 PM [facility] Albumin/Globulin Ratio 0.6(L) 1.1 - 2.3 11/22/2024 4:22 PM [facility] eGFR by CKD-EPI 16(L) >=90 mL/min/1.7 3 m2 11/22/2024 4:22 PM [facility] Blood BLOOD SPECIMEN / Unknown Lab Venipuncture / Unknown 11/22/2024 2:22 PM BREEDER SERVICE TECHNICIAN 11/22/2024 3:56 PM [facility] Kash Ha MD LAB - CHEMISTRY DIVINA OLVERA [facility] Organization Address City/State/ZIP Co de Phone Number [facility] [address] [place] [address], [facility] [phone] * (ABNORMAL) HEMOGLOBIN A1C (08/28/2024 8:29 PM CDT) Hemoglobin A1c 7.4(H) <=5.6 % 08/29/2024 8:36 AM CDT [facility] Estimated Average Glucose 166 mg/dL 08/29/2024 8:36 AM CDT [facility] Comment: HbA1c Interpretation: Normal : < 5.7% Pre-diabetes: 5.7-6.4% Diabetes: Equal to or greater than 6.5% Test results diagnostic of diabetes should be repeated for confirmation. Treatment target values recommended by ADA and other clinical organizations should be used to evaluate metabolic control in patients. Reference: [place] [employer], Standards of Care in [...] - CHEMISTRY ORDE WADE Performing Organization Address City/[facility]/ZIP Co de Phone Number [address] [address], [place] [phone] * HEPATITIS C AB SCREEN RFLX NAAT QUANT (05/31/2024 6:38 PM CDT) Pathologist [facility] Hepatitis C Antibody Non-react talia Non-reac tive 05/31/2024 7:33 PM CDT [facility] Comment:Hepatitis C Antibody screen indicates no [...] LAB - CHEMISTRY ORDERABLES Performing Organization Address [facility]/ZIP Co de Phone Number [address] [address], [place] [phone] * HIV-1 HIV-2 ANTIBODY + HIV P24 AG PANEL (02/24/2024 8:57 AM CDT) HIV Antigen/Antibod y 1 & 2 Non-reacti ve Non-react talia 02/24/2024 10:03 AM CDT [facility] Comment:No Laboratory eviden ce of HIV infection. Blood BLOOD SPECIMEN / Unknown Lab Venipuncture / Unknown 02/24/2024 8:57 AM CDT 02/24/2024 9:00 AM CDT Raaf Patel MD LAB - CHEMISTRY DIVINA Sweet Organization Address City/State/ZIP Co de Phone Number [facility] [address] [place] [address], [facility] [phone] from Last 3 Months or Most Recently [...] 2:41 AM 05/23/2023 7:59 PM Care Teams Test Engine Mechanic Relationship Specialty Start Date End Date Cherise Patrick PA-C [address] [place] [id number] PCP - General 02/23/24
--- OUTSIDE RECORDS SUMMARY | 2025-01-13 21:19 | XMS_ITS | Clinical Summary ---
Author Organization [facility] Address [address] [place] [address] Care Team Providers Care Upper Inspector Name Role Phone None, Provider MD Primary [...] Diagnosed Date Pulmonary infiltrate 07/31/2022 Morbid obesity 07/31/2022 Acute hypoxemic respiratory failure ([facility]) 07/29/2022 Social History Tobacco Use Types Packs/Day [...] 96 08/21/2022 6:00 AM CDT Temperature 36.6 C (97.9 F) 08/21/2022 6:00 AM CDT Respiratory Rate 20 08/21/2022 6:00 AM CDT [...] on patient's age to complete this topic Meningococcal B Vaccine Aged Out No l onger eligible based on patient's age to complete [...] Associated Problems Recent Progress Patient-Stated? Author Safety Patient/family will have appropriate support at home upon discharge Lifestyle No Ashlee Hein, RN Additional Health Concerns Infection Onset Date Last Indicated MRSA Comment:07/29/22 Nares (RG) 07/30/22 +MRSA Right leg 03/03/23 +MRSA Right leg 07/30/2022 03/03/2023 Insurance Progress [facility] Total Prestige [place] [id number] [facility] C/O PROVIDER SERVICES TOÑITO RAMIREZ [id number] [address] Advance Directives * Full Code (Latest Code Status on File) Date Activated Date Inactivated Comments 07/31/2022 11:49 PM 08/07/2022 11:08 PM * Full Code Date Activated Date Inactivated Comments 07/29/2022 9:44 PM 07/31/2022 11:49 PM Care Teams Upper Inspector Relationship Specialty Start Date End Date None, Provider, PCP - General 07/29/22
--- OUTSIDE RECORDS SUMMARY | 2025-01-13 21:19 | XMS_ITS | Clinical Summary ---
Author Organization [facility] Address [address] [place] [address] Care Team Providers Care Shield Installer Name Role Phone Cherise Patrick PA-C Primary Care Provider Source Comments [facility],non-owned Affiliates and Associated Physician Practices is amultiple site organization consisting of ambulatory clinics and hospital sitesin [place], [place], [place] and [place]. This disclosure is being madepursuant to the Care Everywhere program and may not contain all information available regarding this patient. 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); Osteomyelitis of right shoulder, unspecified type (HCC); MRSA bacteremia; Open wound of right heel, subsequent encounter; Leukocytosis, unspecified type; ESR raised; CRP elevated; ESRD (end stage renal disease) on dialysis (HCC) 11/22/2024 Travel from Last 3 Months Immunizations Name Administration [...] Cigarettes S tarted: 2011 Smokeless Tobacco: Never Tobacco Cessation:Counseling Given: Not [...] Date Recorded PHQ2 TOTAL SCORE 0 06/10/2023 [facility] of Occupat ional Health - Occupational Stress [...] Comments Blood Pressure 119/83 11/22/2024 1:44 PM WEB SERVICES DEVELOPER Pulse 96 11/22/2024 1:44 PM WEB SERVICES DEVELOPER Temperature 36.3 C (97.3 F) 11/22/2024 1:44 PM WEB SERVICES DEVELOPER Respiratory Rate 18 11/22/2024 1:44 PM WEB SERVICES DEVELOPER Oxygen Saturation 99% 11/22/2024 1:44 PM WEB SERVICES DEVELOPER Inhaled Oxygen Concentration - - Weight 111.1 kg (245 lb) 11/22/2024 1:44 PM WEB SERVICES DEVELOPER Height 170.2 cm (5' 7 ) 11/22/2024 1:44 PM WEB SERVICES DEVELOPER Body Mass Index 38.37 11/22/2024 1:44 PM WEB SERVICES DEVELOPER Plan of Treatment Health Maintenance Due Date Last Done Comments PAP SMEAR 1992 HEPATITIS B VACCINE (1 of 1 - Risk Dialysis 4-dose series) 03/06/1995 03/06/1994, 07/27/1993, 06/01/1993 HPV VACCINE (3 - 3-dose series) 10/25/2008 06/24/2008, 04/25/2008 PNEUMOCOCCAL VACCINE (1 of 2 - PCV) 2011 DIABETES-FOOT EXAM WITH MONOFILAMENT 12/03/2022 COVID-19 VACCINE (1 - season) 2024 INFLUENZA VACCINE (#1) 2024 DEPRESSION SCREENING 11/03/2024 06/10/2023, 06/10/2023, 04/24/2023 DIABETES-HGB A1C 02/26/2025 08/28/2024, , 02/23/2024, Additional history exists DIABETES RETINOPATHY SCREENING 11/01/2025 11/01/2024 DTAP/TDAP/TD VACCINES (7 - Td or Tdap) 12/02/2032 12/02/2022, 08/14/2006, 05/08/1994, Additional history exists ZOSTER VACCINE (1 of 2) 2042 HIB VACCINE Completed 01/04/1994, 05/05, 02/16/1993, Additional history exists MENINGOCOCCAL GROUPS A/C/Y/W VACCINE Aged Out 04/25/2008 No longer eligible based on patient's age to complete this topic HIV SCREENING Completed 02/24/2024, 04/27/2023 HEPATITIS C SCREENING Completed 05/31/2024, 023 MENINGOCOCCAL (Group B) VACCINE SHARED DECISION-MAKING Aged Out No longer eligible based on patient's age to complete this topic Medical Devices Implanted Type Area Furnace Process Supervisor Device Identifier Shelf Expiration Date Model / Serial / Lot Kit Pebblesane Drflw Embosafe Chrnc Dlys Implanted:Qty: 1 on 02/25/2024 by Artie Harmon MD at [facility] Right: Chest [employer] 07/03/2026 [id number] / / [id number] Description:IMPLANTED BY DR. JUAN Gill Durathane Drflw Embosafe Chrnc Dlys Implanted:Qty: 1 on 08/06/2024 by Artie Harmon MD at [facility] Left: Chest Wall [employer] 07/03/2026 [id number] / / [id number] Description:Implanted in the left chest wall, via the [facility], by Dr. Candy Harmon. Procedures Procedure Name Priority Date/Time Associated Diagnosis Comments C-REACTIVE PROTEIN Routine 11/22/2024 2: 22 PM WEB SERVICES DEVELOPER 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HCC) MRSA bacteremia ERYTHROCYTE SEDIMENTATION RATE Routine 11/22/2024 2:22 PM WEB SERVICES DEVELOPER 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HCC) MRSA bacteremia COMPREHENSIVE METABOLIC PANEL Routine 11/22/2024 2:22 PM WEB SERVICES DEVELOPER 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HCC) MRSA bacteremia CBC W AUTO DIFFERENTIAL Routine 11/22/2024 2:22 PM WEB SERVICES DEVELOPER 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HCC) MRSA bacteremia HEMOGLOBIN A1C Routine 08/28/2024 8:29 PM CDT HEPATITIS C AB SCREEN RFLX NAAT QUANT Routine 05/31/2024 6:38 PM CDT HIV-1 HIV-2 ANTIBODY + HIV P24 AG PANEL STAT 02/24/2024 8:57 AM CDT from Last 3 Months or Most Recently Relevant to Health Maintenance Results * (ABNORMAL) C-REACTIVE PROTEIN (11/22/2024 2:22 PM WEB SERVICES DEVELOPER) C-Reactive Protein 1.4(H) <=0.5 mg/dL 11/22/2024 4:22 PM WEB SERVICES DEVELOPER [facility] Blood BLOOD SPECIMEN / Unknown Lab Venipuncture / Unknown 11/22/2024 2:22 PM WEB SERVICES DEVELOPER 11/22/2024 3:56 PM WEB SERVICES DEVELOPER Kash Ha MD LAB - CHEMISTRY ORDE RABLIZA Performing Organization Address City/[facility]/ZIP Co de Phone Number [address] [address], [facility] [phone] * (ABNORMAL) ERYTHROCYTE SEDIMENTATION RATE (11/22/2024 2:22 PM WEB SERVICES DEVELOPER) Erythrocyte Sedimentation Rate Westergren 46(H) 0 - 20 MM/HR 11/22/2024 4:12 PM [facility] Blood BLOOD SPECIMEN / Unknown Lab Venipuncture / Unknown 11/22/2024 2:22 PM WEB SERVICES DEVELOPER 11/22/2024 3:56 PM WEB SERVICES DEVELOPER Kash Ha MD LAB - HEMATOLOGY ORD ERABLES Performing Organization Address [facility]/ZIP Co de Phone Number [address] [address], [facility] [phone] * (ABNORMAL) CBC WITH DIFFERENTIAL (11/22/2024 2:22 PM WEB SERVICES DEVELOPER) WBC 13.6(H) 4.0 - 10.7 x10E9/L 11/22/2024 4:03 PM [facility] RBC Count 4.45 3.90 - 5.20 x10E12/L 11/22/2024 4:03 PM [facility] Hemoglobin 13.1 11.9 - 15.8 g/dL 11/22/2024 4:03 PM [facility] Hematocrit 41.5 34.8 - 46.1 % 11/22/2024 4:03 PM [facility] MCV 93.3 80.0 - 98.0 fL 11/22/2024 4:03 PM [facility] MCH 29.4 26.7 - 33.6 pg 11/22/2024 4:03 PM [facility] MCHC 31.6(L) 31.7 - 36.3 g/dL 11/22/2024 4:03 PM [facility] RDW-CV 13.2 11.3 - 14.8 % 11/22/2024 4:03 PM [facility] Platelet Count 376 150 - 420 x10E9/L 11/22/2024 4:03 PM [facility] MPV 10.2 7.8 - 11.4 fL 11/22/2024 4:03 PM [facility] Neutrophil % 68.3 41.0 - 74.0 % 11/22/2024 4:03 PM [facility] Lymphocyte % 21.9 17.0 - 47.0 % 11/22/2024 4:03 PM [facility] Monocyte % 5.5 3.0 - 11.0 % 11/22/2024 4:03 PM [facility] Eosinophil % 3.2 0.0 - 7.0 % 11/22/2024 4:03 PM [facility] Basophil % 0.4 0.0 - 1.6 % 11/22/2024 4:03 PM [facility] Immature Granulocytes % 0.7 0.0 - 1.0 % 11/22/2024 4:03 PM [facility] Neutrophil Absolute 9.32(H) 1.60 - 7.50 x10E9/L 11/22/2024 4:03 PM [facility] Lymphocyte Absolute 2.99 1.00 - 4.40 x10E9/L 11/22/2024 4:03 PM [facility] Monocyte Absolute 0.75 0.15 - 1.00 x10E9/L 11/22/2024 4:03 PM [facility] Eosinophil Absolute 0.43 0.00 - 0.60 x10E9/L 11/22/2024 4:03 PM [facility] Basophil Absolute 0.05 0.00 - 0.13 x10E9/L 11/22/2024 4:03 PM [facility] Blood BLOOD SPECIMEN / Unknown Lab Venipuncture / Unknown 11/22/2024 2:22 PM WEB SERVICES DEVELOPER 11/22/2024 3:56 PM WEB SERVICES DEVELOPER Kash Ha MD LAB - HEMATOLOGY ORD ERABLES [facility] [address] [place] [address], [facility] [phone] * (ABNORMAL) COMPREHENSIVE METABOLIC PANEL (11/22/2024 2:22 PM WEB SERVICES DEVELOPER) BUN 23 7 - 26 mg/dL 11/22/2024 4:22 PM [facility] Creatinine 3.71(H) 0.56 - 0.96 mg/dL 11/22/2024 4:22 PM [facility] Sodium 134(L) 136 - 145 mmol/L 11/22/2024 4:22 PM [facility] Potassium 4.6(H) 3.5 - 4.5 mmol/L 11/22/2024 4:22 PM [facility] Chloride 103 98 - 107 mmol/L 11/22/2024 4:22 PM [facility] CO2 21(L) 22 - 29 mmol/L 11/22/2024 4:22 PM [facility] Glucose 295(H) 70 - 99 mg/dL 11/22/2024 4:22 PM [facility] Calcium 8.7 8.4 - 10.2 mg/dL 11/22/2024 4:22 PM [facility] Protein Total 7.9 6.0 - 8.3 g/dL 11/22/2024 4:22 PM [facility] Albumin 3.1(L) 3.4 - 5.0 g/dL 11/22/2024 4:22 PM [facility] Bilirubin Total 0.2 0.2 - 1.2 mg/dL 11/22/2024 4:22 PM [facility] Alkaline Phosphatase 263(H) 40 - 150 U/L 11/22/2024 4:22 PM [facility] ALT 15 5 - 55 U/L 11/22/2024 4:22 PM [facility] AST 12 5 - 34 U/L 11/22/2024 4:22 PM [facility] Anion Gap 10 6 - 16 11/22/2024 4:22 PM [facility] BUN/Creatinine Ratio 6(L) 7 - 23 11/22/2024 4:22 PM [facility] Osmolality Calculated 293 275 - 295 mOsm/kg 11/22/2024 4:22 PM [facility] Albumin/Globulin Ratio 0.6(L) 1.1 - 2.3 11/22/2024 4:22 PM [facility] eGFR by CKD-EPI 16(L) >=90 mL/min/1.7 3 m2 11/22/2024 4:22 PM [facility] Blood BLOOD SPECIMEN / Unknown Lab Venipuncture / Unknown 11/22/2024 2:22 PM WEB SERVICES DEVELOPER 11/22/2024 3:56 PM [facility] Kash Ha MD LAB - CHEMISTRY DIVINA OLVERA [facility] Organization Address City/State/ZIP Co de Phone Number [facility] [address] [place] [address], [facility] [phone] * (ABNORMAL) HEMOGLOBIN A1C (08/28/2024 8:29 PM CDT) Hemoglobin A1c 7.4(H) <=5.6 % 08/29/2024 8:36 AM T [facility] Estimated Average Glucose 166 mg/dL 08/29/2024 8:36 AM [facility] Comment: HbA1c Interpretation: Normal : < 5.7% Pre-diabetes: 5.7-6.4% Diabetes: Equal to or greater than 6.5% Test results diagnostic of diabetes should be repeated for confirmation. Treatment target values recommended by ADA and other clinical organizations should be used to evaluate metabolic control in patients. Reference: [place] [employer], Standards of Care in Diabetes [...] - CHEMISTRY DIVINA OLVERA Performing Organization Address City/[facility]/ZIP Co de Phone Number [address] [address], [place] [phone] * HEPATITIS C AB SCREEN RFLX NAAT QUANT (05/31/2024 6:38 PM CDT) Hepatitis C Antibody Non-react talia Non-reac tive 05/31/2024 7:33 PM CDT [facility] Comment:Hepatitis C Antibody screen indicates no [...] LAB - CHEMISTRY ORDERABLES Performing Organization Address [facility]/ZIP Co de Phone Number [address] [address], [place] [phone] * HIV-1 HIV-2 ANTIBODY + HIV P24 AG PANEL (02/24/2024 8:57 AM CDT) HIV Antigen/Antibod y 1 & 2 Non-reacti ve Non-react talia 02/24/2024 10:03 AM CDT [facility] Comment:No Laboratory eviden ce of HIV infection. Blood BLOOD SPECIMEN / Unknown Lab Venipuncture / Unknown 02/24/2024 8:57 AM CDT 02/24/2024 9:00 AM CDT Rafa Patel MD LAB - CHEMISTRY DIVINA OLVERA [address] [address], [place] [phone] from Last 3 Months or Most Recently [...] 2:41 AM 05/23/2023 7:59 PM Care Teams Shield Installer Relationship Specialty Start Date End Date Cherise Patrick PA-C [address] [place] [id number] PCP - General 02/23/24
--- OUTSIDE RECORDS SUMMARY | 2025-01-13 21:19 | XMS_ITS | Clinical Summary ---
Author Organization [facility] Address [address] [place] [address] Care Team Providers Care Prenatal Teacher Name Role Phone Cherise Patrick Primary Care Provider [phone] Allergies No known active allergies Medications furosemide (LASIX) 40 mg tabletIndicati ons:hypertensi on Take 1 tablet (40 mg total) by mouth early childhood director before breakfast Active carvediloL (COREG) 12.5 mg tabletIndicati ons:hypertensi on Take 1 tablet (12.5 mg total) by mouth 2 (two) times a day with meals Active amLODIPine (NORVASC) 10 mg tabletIndicati ons:hypertensi on Take 1 tablet (10 mg total) by mouth early childhood director before breakfast Active dulaglutide (TRULICITY) 0.75 mg/0.5 mL pen injectorIndica tions:type 2 diabetes mellitus,Alem ys Inject 0.5 mL (0.75 mg total) under the skin every 7 days Active traMADoL (ULTRAM) 50 mg tabletIndicati ons:Pain Take 1 tablet (50 mg total) by mouth every 6 (six) hours Active apixaban (ELIQUIS) 5 mg tabletIndicati ons:Venous Thrombosis,RUE DVT 08/2024 Take 1 tablet (5 mg total) by mouth 2 (two) times a day Active lisinopriL (PRINIVIL,ZEST RIL) 20 mg tabletIndicati ons:hypertensi on Take 1 tablet (20 mg total) by mouth early childhood director before breakfast Active gabapentin (NEURONTIN) 300 mg capsuleIndicat ions:Neuropath ic Pain Take 1 capsule (300 mg total) by mouth 3 (three) times a week MWF Active prednisoLONE acetate (PRED FORTE) 1 % ophthalmic suspension Administer 1 drop into the right eye 4 (four) times a day START DROP AFTER SURGERY. BRING DROP TO SURGICAL PROCEDURE 10 mL 2 5 Active moxifloxacin (VIGAMOX) 0.5 % ophthalmic solution Administer 1 drop into the right eye 4 (four) times a day START DROP AFTER SURGERY. BRING DROP TO SURGICAL PROCEDURE 3 mL 2 5 Active ketorolac (ACULAR) 0.5 % ophthalmic solution Administer 1 drop into the right eye 4 (four) times a day START DROP AFTER SURGERY. BRING DROP TO SURGICAL PROCEDURE 5 mL 2 5 Active ofloxacin (OCUFLOX) 0.3 % ophthalmic solution Administer 1 drop into the right eye 4 (four) times a day START DROP AFTER SURGERY. 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 11/08/2024 Traction detachment of both retinas 11/01/2024 Assessment & Plan (11/01/2024 2:13 PM CASING CREW PUSHER): With severe tractional retinal detachments in both [...] needed basis Acute diastolic congestive heart failure 023 Type II diabetes mellitus with foot ulcer 2022 Hypertension 04/15/2023 Acute respiratory failure with hypoxia 3 Diarrhea 04/15/2023 Acute kidney failure 04/15/2023 Elevated troponin 04/15/2023 Osteomyelitis 04/15/2023 Wounds, multiple 04/15/2023 Rectal bleed 04/15/2023 Resolved Problems Problem Noted Date Diagnosed Date Resolved Date Shortness of breath 04/15/2023 04/15/20 23 Encounters Date Type Department Care Team Description 01/12/2025 Telephone [facility] [address] [phone] Nancie Hoyos MD 01/11/2025 9:15 AM CDT Office Visit [facility] [address] [facility] 2[address], [address] [place] [address] Bita Vega MD Pseudophakia, right eye (Primary Dx) 01/10/2025 11:39 AM CDT Anesthesia Event [facility] ([facility]) [address] [place] [id number] Carla Neri MD Mallette, Allison Anne, NP 01/10/2025 10:30 AM CDT - 01/10/2025 11:15 AM CDT Surgery [facility] Operating Room [facility] ([facility]) [address] [place] [address] Bita Vega MD COMPLEX EXTRACTION CATARACT - PHACOEMULSIFICATION AND LENS IMPLANT 01/10/2025 8:34 AM CDT - 01/10/2025 12:39 PM CDT Hospital Encounter [facility] Operating [facility] ([facility]) [address] [place] [id number] Bita Vega MD 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 [address] [place] [phone] Bita Vega MD return call 11/01/2024 1:20 PM CASING CREW PUSHER Office Visit [facility] [address] [phone] Nancie Hoyos MD Traction detachment of both retinas (Primary Dx) from Last 3 Months Surgical History Surgery Date Site/Laterality Comments ABOVE KNEE LEG AMPUTATION 12/04/2022 - 12/31/2022 Left SHOULDER SURGERY 08/03/2024 - 09/02/2024 Right Medical History Medical History Date Comments Hypertension Diabetes mellitus (HCC) CHF (congestive heart failure) (HCC) CKD (chronic kidney disease) Hx of AKA (above knee amputation) (HCC) Left Type 2 diabetes mellitus (HCC) Family History Medical History Relation Name Comments Anesthesia problems Neg Hx Social History Tobacco Use Types Packs/Day Years [...] Never 04/16/2023 How often do you attend samaritan or adventism serv ices? Never 04/16/2023 Do you belong to any clubs o r organizations such as samaritan groups, unions, fraternal or athletic groups, or [...] place to sleep or slept in a fci (including now)? No 04/16/2023 Housing Stability Vital [...] on file Legal Sex Female 8:53 PM CASING CREW PUSHER Gender Identity Female 12/23/2024 9:35 AM CASING CREW PUSHER Sexual Orientation Straight 12/23/2024 9: 35 AM [employer]ING CREW PUSHER Obstetrics History Last Filed Vital Signs Vital Sign Reading Time Taken Comments Blood Pressure 110/74 01/10/2025 12:30 PM CDT Pulse 90 01/10/2025 12:30 PM CDT Temperature 36.1 C (97 F) 01/10/2025 12:10 PM CDT Respiratory Rate 18 01/10/2025 12:30 PM CDT Oxygen Saturation 96% 01/10/2025 12:30 PM CDT Inhaled Oxygen Concentration - - Weight 112.5 kg (248 lb) 01/10/2025 9:02 AM CDT Height 170.2 cm (5' 7 ) 12/23/2024 9:15 AM CASING CREW PUSHER Body Mass Index 38.84 12/23/2024 9:15 AM CASING CREW PUSHER Plan of Treatment Health Maintenance Due Date Last Done Comments Cervical Cancer Screening 1992 Depression Screening 1992 Hepatitis C Screening 1992 Foot Exam 1992 HPV Vaccines (3 - 3-dose series) 10/25/2008 06/24/20 08, 04/25/2008 Regular Well Visit/Exam 18-64 2010 Pneumococcal vaccine <65 (1 of 2 - PCV) 2011 Albumin Creatinine Ratio, Urine 04/17/2024 Lipid Panel 04/17/2024 04/17/2023, 12/02/2022 Influenza Vaccine (#1) 2024 eGFR 09/23/2024 09/23/2023, 04/04, 04/25/2023, Additional history exists Hemoglobin A1C 02/26/2025 08/28/2024, 05/04, 02/23/2024, Additional history exists Dilated Eye Exam 11/01/2025 11/01/2024 DTaP/Tdap/Td Vaccine (7 - Td or Tdap) 12/02/2032 12/02/2022, 08/14/2006, 05/08/1994, Additional history exists Hepatitis B Screening Completed 03/06/1994 , 07/27/1993, 06/01/1993 Varicella Vaccines Completed 04/25/2008, 08/13/2007 Medical Devices Implanted Type Area Supply Chain Engineer Device Identifier Shelf Expiration Date Model / Serial / Lot [employer] Lens Iol [id number] [employer] [id number] - [id number] - [id number] Implanted:Qty: 1 on 01/10/2025 by Bita Vega MD at [facility] Lens Right: Eye [employer] 06/14/2026 [id number] / [id number] Procedures Procedure Name Priority Date/Time Associated Diagnosis Comments POCT GLUCOSE DEVICE Routine 01/10/2025 1 2:14 PM CDT EXTRACTION CATARACT - PHACOEMULSIFICATION AND LENS IMPLANT 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 POCT GLUCOSE DEVICE Routine 01/10/2025 1 1:22 AM CDT POCT GLUCOSE DEVICE Routine 01/10/2025 1 0:34 AM CDT POCT HCG, URINE Routine 01/10/2025 9:30 AM CDT POCT XP-Z-PEG-GLU-HCT,WB - ISTAT Routine 01/10/2025 9:28 AM CDT B-SCAN ULTRASOUND 20781 - OD - RIGHT EYE Routine 11/01/2024 2:15 PM CASING CREW PUSHER Traction detachment of both retinas B-SCAN ULTRASOUND [id number] - OS - LEFT EYE Routine 11/01/2024 2:15 PM CASING CREW PUSHER Traction detachment of both retinas EGFR Routine 09/23/2023 5:39 PM CASING CREW PUSHER ALBUMIN CREATININE RATIO, URINE Routine 04/17/2023 4:23 PM CDT LIPID PANEL Routine 04/17/2023 1:03 PM CDT HEMOGLOBIN A1C Routine 04/16/2023 7:06 AM CDT from Last 3 Months or Most Recently Relevant to Health Maintenance Results * (ABNORMAL) POCT glucose (01/10/2025 12:14 PM CDT) Glucose, POC 249(H) 70 - 199 mg/dL Blood 01/10/2025 12:1 4 PM CDT 01/10/2025 12:14 PM CDT Bita Vega MD LAB POCT ORDERABLES - DEVIC E Final Result Performing Organization Address [facility] de Phone Number [facility] [place] [address] * (ABNORMAL) POCT glucose (01/10/2025 11:22 AM CDT) Glucose, POC 334(H) 70 - 199 mg/dL Blood 01/10/2025 11:2 2 AM CDT 01/10/2025 11:22 AM CDT Bita Vega MD LAB POCT ORDERABLES - DEVIC E Final Result Performing Organization Address [facility] de Phone Number [facility] Department [place] [address] * (ABNORMAL) POCT glucose (01/10/2025 10:34 AM CDT) Glucose, POC 377(H) 70 - 199 mg/dL Blood 01/10/2025 10:3 4 AM CDT 01/10/2025 10:34 AM CDT Bita Vega MD LAB POCT ORDERABLES - DEVIC E Final Result Performing Organization Address [facility] de Phone Number [facility] [place] [address] * POCT hCG, urine (01/10/2025 9:30 AM CDT) HCG, ur, POC Negative Negative Lot Number [id number] QC Backgroud Clear Acceptable QC Control Line Acceptable Urine 01/10/2025 9:30 AM CDT us Carla Neri MD POINT OF CARE TEST ORDERA BLES Final Result * (ABNORMAL) POCT [id number]-GLU-HCT, WB - ISTAT (01/10/2025 9:28 AM CDT) Na POC 132(L) 135 - 145 mmol/L K POC 4.4 3.3 - 4.9 mmol/L [facility] Comment: Interpretive Data This method is not able to assess for hemolysis, which may falsely increase potassium concentrations. If further testing is needed to evaluate this result, consider in-laboratory plasma potassium. Current Interpretive Data was last revised on 2022. Glucose POC i-STAT 438(H) 70 - 199 mg/dL [facility] Hct, POC 39.0 35.6 - 45.5 % [facility] Blood 01/10/2025 9:28 AM CDT 01/10/2025 9:28 AM CDT Bita Vega MD LAB POCT ORDERABLES - DEVIC E Final Result [facility] One [facility] Department [place] [address] * B-SCAN ULTRASOUND [id number] - OD - RIGHT EYE (11/01/2024 2:15 PM CASING CREW PUSHER) Anatomical Region Laterality Modality Head Ultrasound Narrative 11/01/2024 2:15 PM CASING CREW PUSHER Quality was good. Notes Total RD, near funnel Nancie Hoyos MD OPH ULTRASOUND Final Res ult * B-SCAN ULTRASOUND [id number] - OS - LEFT EYE (11/01/2024 2:15 PM CASING CREW PUSHER) Anatomical Region Laterality Modality Head Ultrasound Narrative 11/01/2024 2:15 PM CASING CREW PUSHER Quality was good. Notes disorganized Nancie Hoyso MD OPH ULTRASOUND Final Res ult * eGFR (09/23/2023 5:39 PM CASING CREW PUSHER) eGFR 22 mL/min/1. 73 m2 [facility] Comment: Interpretive Data Reference Interval Normal >/= 90 mL/min/1.73m2 Mildly decreased* 60 - 89 mL/min/1.73m2 Mildly to moderately decreased 45 - 59 mL/min/1.73m2 Moderately to severely decreased 30 - 44 mL/min/1.73m2 Severely decreased 15 - 29 mL/min/1.73m2 Kidney Failure < 15 mL/min/1.73m2 *Relative to young adult level Estimated glomerular [...] last reviewed 2021. Blood 09/23/2023 5:39 PM CASING CREW PUSHER 09/23/2023 8:31 PM CASING CREW PUSHER Tyrel Simmons MD LAB BLOOD ORDERABLES Final Result [facility] [address] Department [place] [address] * (ABNORMAL) Albumin Creatinine Ratio, Urine (04/17/2023 4:23 PM CDT) Albumin Ur 467.4 mg/L [facility] Comment: Interpretive Data No reference range established. Current interpretive data was last revised 2019. Creatinine Ur 38.0 mg/dL [facility] Comment: Interpretive Data No reference range established. Current interpretive data was last revised 2019. Albumin Creatinine Ratio, Ur 1,230(H) 1 - 29 mg/g [facility] Urine 04/17/2023 4:23 PM CDT 04/17/2023 4:31 PM CDT Golden Kidd MD LAB URINE ORDERABLES Final Re sult [facility] [address] [facility] Department [place] [address] * (ABNORMAL) Lipid panel (04/17/2023 1:03 PM CDT) Cholesterol 97 30 - 199 mg/dL [facility] Comment: Interpretive Data Ages < or = 19 years Acceptable: <170 mg/dL Borderline high: 170-199 mg/dL High: >or= 200 mg/dL Ages > or = 20 years Desirable: <200 mg/dL Borderline high: 200-239 mg/dL High: >or= 240 mg/dL Literature References: 1. Expert Panel on Integrated Guidelines for Cardiovascular Health and Risk Reduction in Children and Adolescents. Pediatrics 2011;128:S213 2. NCEP Expert Panel. Circulation 2004;110:227 Current Interpretive Data was last revised on 2018. Triglycerides 61 <=149 mg/dL [facility] Comment: Interpretive Data Ages < or = 9 years Acceptable: <75 mg/dL Borderline high: 75-99 mg/dL High: >or= 100 mg/dL Ages 10 to 20 years Acceptable: <90 mg/dL Borderline high: 90-129 mg/dL High: >or= 130 mg/dL Ages > or = 20 years Desirable: <150 mg/dL Borderline high: 150-199 mg/dL High: 200-499 mg/dL Very high: >or= 499 mg/dL Literature References: 1. Expert Panel on Integrated Guidelines for Cardiovascular Health and Risk Reduction in Children and Adolescents. Pediatrics 2011;128:S213 2. NCEP Expert Panel. Circulation 2004;110:227 Current Interpretive Data was last revised on 2018. HDL 38(L) >=40 mg/dL [facility] Comment: Interpretive Data Ages < or = 19 years Acceptable: >45 mg/dL Borderline low: 40-45 mg/dL Low: <40 mg/dL Ages > or = 20 years Desirable: >or= 60 mg/dL Low: <40 mg/dL Literature References: 1. Expert Panel on Integrated Guidelines for Cardiovascular Health and Risk Reduction in Children and Adolescents. Pediatrics 2011;128:S213 2. NCEP Expert Panel. Circulation 2004;110:227 Current Interpretive Data was last revised on 2018. LDL, calculated 47 <=129 mg/dL [facility] Comment: Interpretive Data Ages < or = 19 years Acceptable: <110 mg/dL Borderline high: 110-129 mg/dL High: >or= 130 mg/dL Ages > or = 20 years Optimal: <100 mg/dL Near optimal: 100-129 mg/dL Borderline high: 130-159 mg/dL High: >160 mg/dL Literature References: 1. Expert Panel on Integrated Guidelines for Cardiovascular Health and Risk Reduction in Children and Adolescents. Pediatrics 2011;128:S213 2. NCEP Expert Panel. Circulation 2004;110:227 Current Interpretive Data was last revised on 2018. Non-HDL Cholesterol 59 mg/dL [facility] Comment: Interpretive Data Ages < or = 19 years Acceptable: <120 mg/dL Borderline high: 120-144 mg/dL High: >145 mg/dL Ages > or = 20 years When triglycerides are >200 mg/dL, Non-HDL cholesterol is a secondary target of therapy with treatment goals that are 30 mg/dL greater than the LDL cholesterol target. Literature References: 1. Expert Panel on Integrated Guidelines for Cardiovascular Health and Risk Reduction in Children and Adolescents. Pediatrics 2011;128:S213 2. NCEP Expert Panel. Circulation 2004;110:227 Current Interpretive Data was last revised on 2018. Chol/HDL ratio 3 [facility] Blood 04/17/2023 1:03 PM CDT 04/17/2023 1:51 PM CDT Sultan Sofía Muro MD LAB BLOOD ORDERABLES Final Re sult [facility] [address] [facility] Department [place] [address] * (ABNORMAL) Hemoglobin A1c (04/16/2023 7:06 AM CDT) Hgb A1C 6.5(H) 4.0 - 5.6 % [facility] Estimated Average Glucose 140 mg/dL [facility] Comment: The ADA recommends reporting an estimated Average Glucose (eAG) with all Hemoglobin A1c results using the equation derived from a study of 507 normal and diabetic adults. Minority populations were underrepresented and children were not included. (Diabetes Care 31:7978-1843, 2008). The eAG is not equivalent to a fasting glucose. Blood 04/16/2023 7:06 AM CDT 04/16/2023 7:45 AM CDT us Amilcar Estrada MD LAB BLOOD ORDERABLES Final Re sult [facility] [address] [facility] Department [place] [address] from Last 3 Months or Most Recently Relevant to Health Maintenance Insurance [facility] Advance Directives For more information, please contact: [phone] Documents on File Type Date Recorded Patient Manager Of Community Relations Expl anation ADVANCE DIRECTIVE 04/23/2023 12:11 PM Breana r of Mine Utility Operator-Medical ADVANCE DIRECTIVE 04/23/2023 12:11 PM POLS T [...] Agents on File Name Relationship Healthcare Agent Relationship Communication Nikkokeishapastor Nunez [facility] Health Care Agent [email or web address] Suellen Resendiz [facility] Health Care Agent [email or web address] Care Teams Prenatal Teacher Relationship Specialty Start Date End Date Cherise Patrick PA [address] [place] [address] PCP - General Physician Animal Cruelty Investigation Supervisor 02/20/23
--- OUTSIDE RECORDS SUMMARY | 2025-01-13 21:19 | XMS_ITS | Patient Health Summary ---
Author Organization [facility] [employer] Address [address] [place] [address] Care Team Providers Care Coding Analyst Name Role Phone Cherise Patrick PA-C Primary Care Provider Note from [facility],non-owned Affiliates and Associated Physician Practices is amultiple site organization consisting of ambulatory clinics and hospital sitesin [place], [place], [place] and [place]. This disclosure is being madepursuant to the Care Everywhere program and may not contain all information available regarding this patient. Last updated 18.[facility] [employer] Allergies No known active allergies Medications * [...] Friday, , & Friday for 30 days Active Problems Problem Noted Date Diagnosed Date [...] Date Recorded PHQ2 TOTAL SCORE 0 06/10/2023 [facility] - Occupational Stress [...] Comments Blood Pressure 119/83 11/22/2024 1:44 PM VACUUM DRUM DRIER OPERATOR Pulse 96 11/22/2024 1:44 PM VACUUM DRUM DRIER OPERATOR Temperature 36.3 C (97.3 F) 11/22/2024 1:44 PM VACUUM DRUM DRIER OPERATOR Respiratory Rate 18 11/22/2024 1:44 PM VACUUM DRUM DRIER OPERATOR Oxygen Saturation 99% 11/22/2024 1:44 PM VACUUM DRUM DRIER OPERATOR Inhaled Oxygen Concentration - - Weight 111.1 kg (245 lb) 11/22/2024 1:44 PM VACUUM DRUM DRIER OPERATOR Height 170.2 cm (5' 7 ) 11/22/2024 1:44 PM VACUUM DRUM DRIER OPERATOR Body Mass Index 38.37 11/22/2024 1:44 PM VACUUM DRUM DRIER OPERATOR Medical Devices Implanted Type Area Civil Estimator Device Identifier Shelf Expiration Date Model / Serial / Lot Kit Duradaina Galvezw Embosafe Chrnc Dlys Implanted:Qty: 1 on 02/25/2024 by Artie Harmon MD at [facility] Right: Chest [employer] 07/03/2026 [id number] / / [id number] Description:IMPLANTED BY DR. JUAN Pascal Drja Embosafe Chrnc Dlys Implanted:Qty: 1 on 08/06/2024 by Artie Harmon MD at [facility] Left: Chest Wall [employer] 07/03/2026 [id number] / / [id number] Description:Implanted in the left chest wall, via the [facility], by Dr. Candy Harmon. 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), MRSA bacteremia * ERYTHROCYTE SEDIMENTATION RATE(Performed 10/11/2024) Performed for [...] MRSA bacteremia, ESRD (end stage renal disease) (HCC) * GLUCOSE - POINT OF CARE(Performed 08/06/2024) [...] Performed for ESRD (end stage renal disease) ([facility]) * IR CENTRAL LINE INSERT TUNNEL(Performed 07/30/2024) Performed for MRSA bacteremia, ESRD (end stage renal disease) ([facility]) * ECHO MATT COMPLETE(Performed 07/30/2024) Performed for Sepsis due to methicillin resistant Staphylococcus aureus (MRSA), unspecified whetheracute organ dysfunction present ([facility]) * GLUCOSE - POINT OF CARE(Performed 07/30/2024) * CULTURE BLOOD(Performed 07/30/2024) * CULTURE BLOOD(Performed 07/30/2024) * MRI CERVICAL SPINE WWO CONT(Performed 07/30/2024) Performed for MRSA bacteremia * VAS ARTERIAL MULTILEVEL LE(Performed 07/30/2024) Performed for Chronic heel ulcer, right, with unspecified severity ([facility]) * VAS RIGHT VENOUS DUPLEX [...] organism, unspecified whether acute organ dysfunction present ([facility]), MRSA bacteremia * CT FOOT RIGHT W CONTRAST(Performed 07/28/2024) Performed for Chronic heel ulcer, right, with unspecified severity ([facility]) * GLUCOSE - POINT OF CARE(Performed 07/28/2024) * ECHO COMPLETE W CONTRAST(Performed 07/28/2024) Performed for Sepsis, due to unspecified organism, unspecified whether acute organ dysfunction present ([facility]) * GLUCOSE - POINT OF CARE(Performed 07/28/2024) * RENAL FUNCTION PANEL(Performed 07/28/2024) * CBC W/O DIFFERENTIAL(Performed 07/28/2024) * GLUCOSE - POINT OF CARE(Performed 07/28/2024) * CT CHEST ABDOMEN PELVIS W CONT(Performed 07/27/2024) Performed for Sepsis, due to unspecified organism, unspecified whether acute organ dysfunction present ([facility]) * GLUCOSE - POINT OF CARE(Performed 07/27/2024) * GLUCOSE - POINT OF CARE(Performed 07/27/2024) * HEMODIALYSIS INPATIENT(Performed 07/27/2024) * CULTURE WOUND+GRAM STAIN(Performed 07/27/2024) * CULTURE FUNGUS OTHER+FUNGUS SMEAR(Performed 07/27/2024) * CULTURE ANAEROBE(Performed 07/27/2024) * ENDOTRACHEAL TUBE NOTE(Performed 07/27/2024) * CA MATI SUBQ TISSUE 20 SQ CM/<(Performed 07/27/2024) Performed for Pyogenic arthritis of right shoulder region, due to unspecified organism ([facility]) * HCG BETA BLOOD QUANTITATIVE(Performed [...] Performed for ESRD (end stage renal disease) ([facility]) * CBC W AUTO DIFFERENTIAL(Performed [...] 08/25/2022) Performed for CHF (congestive heart failure) ([facility]) * RENAL FUNCTION PANEL(Performed 08/25/2022) * GLUCOSE [...] 08/22/2022) Performed for CHF (congestive heart failure) ([facility]) * GLUCOSE - POINT OF CARE(Performed 08/22/2022) * GLUCOSE - POINT OF CARE(Performed 08/22/2022) * HEMOGLOBIN A1C(Performed 08/22/2022) * CBC W AUTO DIFFERENTIAL(Performed 08/22/2022) * MAGNESIUM BLOOD(Performed 08/22/2022) * RENAL FUNCTION PANEL(Performed 08/22/2022) * GLUCOSE - POINT OF CARE(Performed 08/21/2022) * GLUCOSE - POINT OF CARE(Performed 08/21/2022) * ECHOCARDIOGRAM 2D WITH DOPPLER(Performed 08/21/2022) Performed for Intentional overdose, initial encounter ([facility]) * GLUCOSE - POINT OF CARE(Performed 08/21/2022) * EKG 12-LEAD(Performed 08/21/2022) Performed for Intentional overdose, initial encounter ([facility]) * XR CHEST 1VW PORTABLE(Performed 08/21/2022) Performed for Intentional overdose, initial encounter ([facility]) * OT EVAL AND TREAT(Performed [...] w/o Complication Type II (HCC) Results * (ABNORMAL) C-REACTIVE PROTEIN (11/22/2024 2:22 PM VACUUM DRUM DRIER OPERATOR) Only the most recent of12 resultswithin the time period is included. [facility] C-Reactive Protein 1.4(H) <=0.5 mg/dL 11/22/2024 4:22 PM VACUUM DRUM DRIER OPERATOR [facility] Blood BLOOD SPECIMEN / Unknown Lab Venipuncture / Unknown 11/22/2024 2:22 PM VACUUM DRUM DRIER OPERATOR 11/22/2024 3:56 PM VACUUM DRUM DRIER OPERATOR Kash Ha MD LAB - CHEMISTRY ORDE RABLES [facility] [address] [place] [address], [place] [phone] * (ABNORMAL) ERYTHROCYTE SEDIMENTATION RATE (11/22/2024 2:22 PM VACUUM DRUM DRIER OPERATOR) Only the most recent of11 resultswithin the time period is included. [facility] Erythrocyte Sedimentation Rate Westergren 46(H) 0 - 20 MM/HR 11/22/2024 4:12 PM VACUUM DRUM DRIER OPERATOR [facility] Blood BLOOD SPECIMEN / Unknown Lab Venipuncture / Unknown 11/22/2024 2:22 PM VACUUM DRUM DRIER OPERATOR 11/22/2024 3:56 PM VACUUM DRUM DRIER OPERATOR Kash Ha MD LAB - HEMATOLOGY ORD ERABLES [facility] [address] [place] [address], [place] [phone] * (ABNORMAL) CBC WITH DIFFERENTIAL (11/22/2024 2:22 PM VACUUM DRUM DRIER OPERATOR) Only the most recent of54 resultswithin the time period is included. [facility] WBC 13.6(H) 4.0 - 10.7 x10E9/L 11/22/2024 4:03 PM VACUUM DRUM DRIER OPERATOR [facility] RBC Count 4.45 3.90 - 5.20 x10E12/L 11/22/2024 4:03 PM VACUUM DRUM DRIER OPERATOR [facility] Hemoglobin 13.1 11.9 - 15.8 g/dL 11/22/2024 4:03 PM [facility] Hematocrit 41.5 34.8 - 46.1 % 11/22/2024 4:03 PM [facility] MCV 93.3 80.0 - 98.0 fL 11/22/2024 4:03 PM [facility] MCH 29.4 26.7 - 33.6 pg 11/22/2024 4:03 PM [facility] MCHC 31.6(L) 31.7 - 36.3 g/dL 11/22/2024 4:03 PM [facility] RDW-CV 13.2 11.3 - 14.8 % 11/22/2024 4:03 PM [facility] Platelet Count 376 150 - 420 x10E9/L 11/22/2024 4:03 PM [facility] MPV 10.2 7.8 - 11.4 fL 11/22/2024 4:03 PM [facility] Neutrophil % 68.3 41.0 - 74.0 % 11/22/2024 4:03 PM [facility] Lymphocyte % 21.9 17.0 - 47.0 % 11/22/2024 4:03 PM [facility] Monocyte % 5.5 3.0 - 11.0 % 11/22/2024 4:03 PM [facility] Eosinophil % 3.2 0.0 - 7.0 % 11/22/2024 4:03 PM [facility] Basophil % 0.4 0.0 - 1.6 % 11/22/2024 4:03 PM [facility] Immature Granulocytes % 0.7 0.0 - 1.0 % 11/22/2024 4:03 PM [facility] Neutrophil Absolute 9.32(H) 1.60 - 7.50 x10E9/L 11/22/2024 4:03 PM [facility] Lymphocyte Absolute 2.99 1.00 - 4.40 x10E9/L 11/22/2024 4:03 PM [facility] Monocyte Absolute 0.75 0.15 - 1.00 x10E9/L 11/22/2024 4:03 PM [facility] Eosinophil Absolute 0.43 0.00 - 0.60 x10E9/L 11/22/2024 4:03 PM [facility] Basophil Absolute 0.05 0.00 - 0.13 x10E9/L 11/22/2024 4:03 PM [facility] Blood BLOOD SPECIMEN / Unknown Lab Venipuncture / Unknown 11/22/2024 2:22 PM VACUUM DRUM DRIER OPERATOR 11/22/2024 3:56 PM VACUUM DRUM DRIER OPERATOR Kash Ha MD LAB - HEMATOLOGY ORD ERABLES [facility] [address] [place] [address], [facility] [phone] * (ABNORMAL) COMPREHENSIVE METABOLIC PANEL (11/22/2024 2:22 PM VACUUM DRUM DRIER OPERATOR) Only the most recent of17 resultswithin the time period is included. BUN 23 7 - 26 mg/dL 11/22/2024 4:22 PM [facility] Creatinine 3.71(H) 0.56 - 0.96 mg/dL 11/22/2024 4:22 PM [facility] Sodium 134(L) 136 - 145 mmol/L 11/22/2024 4:22 PM [facility] Potassium 4.6(H) 3.5 - 4.5 mmol/L 11/22/2024 4:22 PM [facility] Chloride 103 98 - 107 mmol/L 11/22/2024 4:22 PM [facility] CO2 21(L) 22 - 29 mmol/L 11/22/2024 4:22 PM [facility] Glucose 295(H) 70 - 99 mg/dL 11/22/2024 4:22 PM [facility] Calcium 8.7 8.4 - 10.2 mg/dL 11/22/2024 4:22 PM [facility] Protein Total 7.9 6.0 - 8.3 g/dL 11/22/2024 4:22 PM [facility] Albumin 3.1(L) 3.4 - 5.0 g/dL 11/22/2024 4:22 PM [facility] Bilirubin Total 0.2 0.2 - 1.2 mg/dL 11/22/2024 4:22 PM [facility] Alkaline Phosphatase 263(H) 40 - 150 U/L 11/22/2024 4:22 PM [facility] ALT 15 5 - 55 U/L 11/22/2024 4:22 PM [facility] AST 12 5 - 34 U/L 11/22/2024 4:22 PM [facility] Anion Gap 10 6 - 16 11/22/2024 4:22 PM [facility] BUN/Creatinine Ratio 6(L) 7 - 23 11/22/2024 4:22 PM [facility] Osmolality Calculated 293 275 - 295 mOsm/kg 11/22/2024 4:22 PM [facility] Albumin/Globulin Ratio 0.6(L) 1.1 - 2.3 11/22/2024 4:22 PM [facility] eGFR by CKD-EPI 16(L) >=90 mL/min/1.7 3 m2 11/22/2024 4:22 PM [facility] Blood BLOOD SPECIMEN / Unknown Lab Venipuncture / Unknown 11/22/2024 2:22 PM VACUUM DRUM DRIER OPERATOR 11/22/2024 3:56 PM VACUUM DRUM DRIER OPERATOR Kash Ha MD LAB - CHEMISTRY DIVINA OLVERA [facility] Organization Address City/State/ZIP Co de Phone Number [facility] [address] [place] [address], [facility] [phone] * LAB RESULTS ORDER (09/27/2024) 09/27/2024 Narrative 09/27/2024 Ordered by an unspecified provider. Scanned Document LAB - THERAPEUTIC DR UG MONITORING ORDERABLES * (ABNORMAL) GLUCOSE - POINT OF CARE (09/01/2024 1:19 PM CDT) Only the most recent of306 resultswithin the time period is included. Glucose WB/POC 163(H) 70 - 99 mg/dL 09/01/2024 1:24 PM CDT [facility] Specimen Type Cap Fingerstick 2023 1:24 PM CDT [facility] Blood BLOOD SPECIMEN / Unknown 09/01/2024 1:19 PM CDT 09/01/2024 1:24 PM CDT José Damian MD LAB - POINT OF CARE ORDERABLES Performing Organization Address City/[facility]/ZIP Co de Phone Number [facility] [address] [place] [address], [facility] [phone] * VANCOMYCIN LEVEL RANDOM (09/01/2024 6:38 AM CDT) Only the most recent of28 resultswithin the time period is included. Vancomycin Random 19.9 Therapeutic Ranges not established for random specimens ug/mL 09/01/2024 8:06 AM CDT [facility] Blood BLOOD SPECIMEN / Unknown Lab Venipuncture / Unknown 09/01/2024 6:38 AM CDT 09/01/2024 7:56 AM CDT Narrative [facility] - 09/01/2024 8:06 AM CDT See institution protocol. Harpreet Katz DO LAB - CHEMISTRY DIVINA OLVERA Performing Organization Address [facility]/ZIP Co de Phone Number [facility] [address] [place] [phone], [facility] [phone] * (ABNORMAL) RENAL FUNCTION PANEL (08/31/2024 7:18 PM CDT) Only the most recent of46 resultswithin the time period is included. BUN 31(H) 7 - 26 mg/dL 08/31/2024 8:37 PM CDT [facility] Creatinine 5.54(H) 0.56 - 0.96 mg/dL 08/31/2024 8:37 PM T [facility] Sodium 138 136 - 145 mmol/L 08/31/2024 8:37 PM T [facility] Potassium 5.2(H) 3.5 - 4.5 mmol/L 08/31/2024 8:37 PM T [facility] Chloride 103 98 - 107 mmol/L 08/31/2024 8:37 PM [facility] CO2 20(L) 22 - 29 mmol/L 08/31/2024 8:37 PM [facility] Glucose 179(H) 70 - 99 mg/dL 08/31/2024 8:37 PM [facility] Albumin 2.3(L) 3.4 - 5.0 g/dL 08/31/2024 8:37 PM [facility] Calcium 8.1(L) 8.4 - 10.2 mg/dL 08/31/2024 8:37 PM [facility] Phosphorus 5.3(H) 2.9 - 5.1 mg/dL 08/31/2024 8:37 PM [facility] Anion Gap 15 6 - 16 08/31/2024 8:37 PM [facility] BUN/Creatinine Ratio 6(L) 7 - 23 08/31/2024 8:37 PM [facility] Osmolality Calculated 297(H) 275 - 295 mOsm/kg 08/31/2024 8:37 PM [facility] eGFR by CKD-EPI 10(L) >=90 mL/min/1.7 3 m2 08/31/2024 8:37 PM [facility] Blood BLOOD SPECIMEN / Unknown Lab Venipuncture / Unknown 08/31/2024 7:18 PM CDT 08/31/2024 8:23 PM CDT Noe Rabago MD LAB - CHEMISTRY DIVINA OLVERA [facility] Organization Address City/State/ZIP Co de Phone Number [facility] [address] [place] [address], [facility] [phone] * MAGNESIUM BLOOD (08/31/2024 7:18 PM CDT) Only the most recent of50 resultswithin the time period is included. Magnesium 2.1 1.6 - 2.6 mg/dL 08/31/2024 8:37 PM [facility] Blood BLOOD SPECIMEN / Unknown Lab Venipuncture / Unknown 08/31/2024 7:18 PM CDT 08/31/2024 8:23 PM CDT Noe Rabago MD LAB - CHEMISTRY DIVINA OLVERA Performing Organization Address City/[facility]/ZIP Co de Phone Number [address] [address], [facility] [phone] * HCG BETA BLOOD QUANTITATIVE (08/31/2024 6:22 AM CDT) Only the most recent of5 resultswithin the time period is included. Beta-hCG Total Quantitative <3 mIU/mL 08/31/2024 7:30 AM CDT [facility] Comment: HCG Numeric Result Interpretation: Non- Females: < 5 mIU/mL Post-Menopausal Females: < 7 mIU/mL This assay is cleared for use in [...] - CHEMIS TRY ORDERABLES Performing Organization Address [facility] Co de Phone Number [address] [phone], [facility] [phone] * CT US Guided Needle Placement (08/30/2024 3:23 PM CDT) Anatomical Region Laterality Modality Chest, Abdomen Computed Tomogra phy 08/30/2024 3:42 PM CDT Impressions 08/31/2024 9:09 AM CDT Impression: Successful ultrasound-guided placement of a 10 Kuwaiti pigtail drainage catheter in right intramuscular abscess, [...] was provided with 1% Lidocaine. A 5 Kuwaiti coaxial needle system was advanced in stages under real time ultrasound guidance. Upon aspiration, the outer-sheath was advanced within the abscess. An attempt was made for aspiration with a 5 Kuwaiti catheter without success. Shortly after, a 0.035 wire was advanced through the sheath and following a series of exchanges, an 10 Kuwaiti pigtail drainage catheter was advanced within the [...] was provided with 1% Lidocaine. A 5 Kuwaiti coaxialneedle system was advanced in stages under real time ultrasound guidance. Upon aspiration, the outer-sheath was advanced within the abscess. An attempt was made for aspiration with a 5 Kuwaiti catheter without success.Shortly after, a 0.035 wire was advanced through the sheath and following aseries of exchanges, an 10 [place]i pigtail drainage catheter was advanced within the [...] the procedure well [facility]. [facility] were [...] Provider: Sorin Veronica on 08/31/2024 9:09 AM Birana Larson PA-C CT ORDERABLES * CULTURE FLUID+GRAM STAIN (08/30/2024 3:13 PM CDT) Only the most recent of5 resultswithin the time period is included. Culture No growth CHARLES 09/04/2024 12:22 PM CDT [facility] Gram Stain Light Polymorphonuclear cells 09/04/2024 12:22 PM CDT [facility] Gram Stain No organisms seen 024 12:22 PM CDT [facility] Other SYNOVIAL FLUID / Unknown Collection / Unknown 08/30/2024 3:13 PM CDT 08/30/2024 3:37 PM CDT Penny Morris MD LAB - MICROBIOLOGY O DARRELL [facility] [address] [place] [address], [facility] [phone] * CULTURE ANAEROBE (08/30/2024 3:13 PM CDT) Only the most recent of7 resultswithin the time period is included. Culture No anaerobic organisms isolated CHARLES 09/05/2024 3:01 PM VACUUM DRUM DRIER OPERATOR [facility] Microbiology BODY FLUID SPECIMEN / Unknown Collection / Unknown 08/30/2024 3:13 PM CDT 08/30/2024 3:37 PM CDT Noe Rabago MD LAB - MICROBIOLOGY O DARRELL Performing Organization Address [facility] Co de Phone Number [facility] [address] [place] [address], [facility] [phone] * HCG URINE QUAL POCT NOTIFICATION (08/30/2024 1:58 PM CDT) Only the most recent of2 resultswithin the time period is included. Comment Notification Label Only - See Separate Report 08/30/2024 3:00 PM CDT [facility] Urine URINE / Unknown 08/30/2024 1 :58 PM CDT 08/30/2024 1:58 PM CDT Sorin Veronica MD LAB - URINAL YSIS ORDERABLES Performing Organization Address City/[facility]/ZIP Co de Phone Number [address] [address], [place] [phone] * MRI Shoulder Right Wwo Cont (08/29/2024 [...] > Dictated by Kranthi Alvarez MD, (resident programs assistant). I, Xander De Guzman MD have personally reviewed and interpreted this examination/study. > Interpreting Provider: Xander De Guzman MD on 08/30/2024 9:01 AM Narrative 08/30/2024 9:01 AM CDT PROCEDURE: MRI SHOULDER RIGHT WWO CONT, DATE/TIME OF EXAM: 08/29/2024 11:11 AM, LOCATION [facility] INDICATION: M86.9: Osteomyelitis of right shoulder, [...] OF EXAM: 08/29/2024 11:11 AM, LOCATION [facility] INDICATION: M86.9: Osteomyelitis of right shoulder, [...] > Dictated by Kranthi Alvarez MD, (resident programs assistant). I, Xander De Guzman MD have personally reviewed and interpreted this examination/study. > Interpreting Provider: Xander De Guzman MD on 08/30/2024 9:01 AM Harrpeet Katz ORDERABLES * (ABNORMAL) HEMOGLOBIN A1C (08/28/2024 8:29 PM CDT) Only the most recent of6 resultswithin the time period is included. Hemoglobin A1c 7.4(H) <=5.6 % 08/29/2024 8:36 AM T [facility] Estimated Average Glucose 166 mg/dL 08/29/2024 8:36 AM [facility] Comment: HbA1c Interpretation: Normal : < 5.7% Pre-diabetes: 5.7-6.4% Diabetes: Equal to or greater than 6.5% Test results diagnostic of diabetes should be repeated for confirmation. Treatment target values recommended by ADA and other clinical organizations should be used to evaluate metabolic control in patients. Reference: [place] [employer], Standards of Care in Diabetes -2020 In patients 70 years and older consider HbA1c target range of 7.0-7.5% (Reference: Anthony Dillard, et al. MAGGIE. 2012) The Sebia assay for the measurement of HbA1c is a National Glycohemoglobin Standardization Program (NGSP) certified method. Blood BLOOD SPECIMEN / Unknown Lab Venipuncture / Unknown 08/28/2024 8:29 PM CDT 08/28/2024 9:24 PM CDT Noe Rabago MD LAB - CHEMISTRY DIVINA OLVERA [facility] Organization Address City/State/ZIP Co de Phone Number [address] [address], [facility] [phone] * MRI Cervical Spine Wwo Cont (08/27/2024 [...] arthritis. This study was dictated by resident programs assistant Anam Pearson MD and reviewed and edited [...] arthritis. This study was dictated by resident programs assistant Anam Pearson MD and reviewed and edited [...] arthritis. This study was dictated by resident programs assistant Anam Pearson MD and reviewed and edited [...] arthritis. This study was dictated by resident programs assistant Anam Pearson MD and reviewed and edited [...] arthritis. This study was dictated by resident programs assistant Anam Pearson MD and reviewed and edited [...] arthritis. This study was dictated by resident programs assistant Anam Pearson MD and reviewed and edited [...] See Path Review. 08/26/2024 11:48 PM CDT [facility] Fluid SYNOVIAL FLUID / Unknown 08/26/2024 9:15 PM CDT 08/26/2024 10:31 PM CDT Penny Morris MD LAB - BODY FLUID ORD ERABLES Performing Organization Address City/[facility]/ZIP Co de Phone Number [address] [address], [facility] [phone] * PATHOLOGY SMEAR BODY FLUID (08/26/2024 9:15 PM CDT) Only the most recent of6 resultswithin the time period is included. Path Review Fluid Confirmed 08/30/2024 12:36 PM CDT [facility] Fluid SYNOVIAL FLUID / Unknown 08/26/2024 9:15 PM CDT 08/26/2024 10:31 PM CDT Narrative [facility] - 08/30/2024 12:36 PM CDT Synovial fluid cytospin (1:10): - Red blood cells present, consistent with peripheral blood contamination - No crystals seen under polarized light-microscopy Penny Morris MD LAB - PATHOLOGY/CYTO LOGY ORDERABLES Performing Organization Address [facility]/ZIP Co de Phone Number [address] [address], [facility] [phone] * DIFFERENTIAL MANUAL FLUID (08/26/2024 9:15 PM CDT) Only the most recent of4 resultswithin the time period is included. Fluid Source Synovial 08/26/2024 10:35 PM CDT [facility] Body Fluid Total Cell Count 100 x10E6/L 08/26/2024 10:35 PM CDT [facility] Neutrophils Fluid Percent 83 % 08/26/2024 10:35 PM CDT [facility] Lymphocytes Fluid Percent 5 % 08/26/2024 10:35 PM CDT [facility] Eosinophils Fluid Percent 12 % 08/26/2024 10:35 PM CDT [facility] Fluid SYNOVIAL FLUID / Unknown Collection / Unknown 08/26/2024 9:15 PM CDT 08/26/2024 9:16 PM CDT Narrative [facility] - 08/26/2024 10:35 PM CDT No reference ranges established for body fluid differential cell counts. The test results must be integrated into the clinical context for interpretation. Penny Morris MD LAB - BODY FLUID ORD ERABLES Performing Organization Address City/[facility]/ZIP Co de Phone Number [address] [address], [facility] [phone] * (ABNORMAL) CELL COUNT W DIFFERENTIAL FLUID (08/26/2024 9:15 PM CDT) Only the most recent of4 resultswithin the time period is included. Fluid Source Synovial 08/26/2024 10:35 PM CDT [facility] Fluid Appearance BLOODY 08/26/2024 10:35 PM CDT [facility] Fluid Color RED 08/26/2024 10:35 PM CDT [facility] Total Nucleated Cells Fluid 3,700(H) <=200 x10E6/L 08/26/2024 10:35 PM CDT [facility] Comment:Clots present. Count may be inaccurate. RBC Count Fluid 1,117,000 Reference Range Not Established x10E6/L 08/26/2024 10:35 PM CDT [facility] Fluid SYNOVIAL FLUID / Unknown Collection / Unknown 08/26/2024 9:15 PM CDT 08/26/2024 9:16 PM CDT Narrative [facility] - 08/26/2024 10:35 PM CDT No reference ranges established for body fluid cell counts. Any reference ranges provided are derived from published literature. The test results must be integrated into the clinical context for interpretation. Penny Morris MD LAB - BODY FLUID ORD KAUSHAL [address] [address], [facility] [phone] * XR Shoulder Right 2Vw or More (08/26/2024 8:11 PM CDT) Only the most recent of3 resultswithin the time period is included. Anatomical Region Laterality Modality Upper Extremity Digital Radiogra phy 08/26/2024 8:45 PM CDT Narrative 08/27/2024 12:36 AM CDT PROCEDURE: XR SHOULDER RIGHT 2VW OR MORE, DATE/TIME OF EXAM: 08/26/2024 8:12 PM, LOCATION [facility] INDICATION: M79.89: Swelling of right upper [...] Report dictated by Graeme Stern DO (resident programs assistant). Arthur Kim MD have personally reviewed and interpreted this examination/study. > Interpreting Provider: Arthur Avery MD on 08/27/2024 12:36 AM Procedure Note Arthur Avery MD - 08/27/2024 PROCEDURE: XR SHOULDER RIGHT 2VW OR MORE, DATE/TIME OF EXAM:08/26/2024 8:12 PM, LOCATION [facility] INDICATION: M79.89: Swelling of right upper [...] Report dictated by Graeme Stern DO (resident programs assistant). Arthur Kim MD have personally reviewed and interpreted this examination/study. > Interpreting Provider: Arthur Avery MD on 08/27/2024 12:36 AM Penny Morris MD DIAGNOSTIC IMAGING O RDERABLES * SARS-COV-2 (COVID-19)+INFLU A+B PCR RAPID (08/25/2024 10:05 AM CDT) COVID-19 PCR Not detected Not detected 08/25/20 10:55 AM CDT [facility] Influenza A Rapid RASHAWN Not Detected Not Detected 08/25/2024 10:55 AM CDT [facility] Influenza B RASHAWN Rapid Not Detected Not Detected 08/25/2024 10:55 AM CDT [facility] Microbiology SPECIMEN FROM NASOPHARYNGEAL STRUCTURE / Unknown Collection / Unknown 08/25/2024 10:05 AM CDT 08/25/2024 10:18 AM CDT Narrative [facility] - 08/25/2024 10:55 AM CDT Influenza assay [...] acid amplification assay performance was validated by [facility]. This test has been authorized by the [...] Morris MD LAB - MICROBIOLOGY O RDERABLES [facility] [address] [place] [address], [facility] [phone] * CULTURE BLOOD (08/25/2024 10:05 AM CDT) Only the most recent of31 resultswithin the time period is included. Culture No growth day 5 CHARLES 08/30/2024 2:31 PM CDT [facility] Blood PERIPHERAL BLOOD / Unknown Venipuncture / Unknown 08/25/2024 10:05 AM CDT 08/25/2024 10:18 AM CDT Penny Morris MD LAB - MICROBIOLOGY O RDERABLES Performing Organization Address City/[facility]/ZIP Co de Phone Number [facility] [address] [place] [address], [facility] [phone] * LIPASE BLOOD (08/25/2024 9:50 AM CDT) Pathologist [facility] Lipase 57 8 - 78 U/L 08/25/2024 10:58 AM CDT [facility] Blood BLOOD SPECIMEN / Unknown Venipuncture / Unknown 08/25/2024 9:50 AM CDT 08/25/2024 10:20 AM CDT Narrative [facility] - 08/25/2024 10:58 AM CDT Lipase results from the Garcia Alinity analyzer may not be comparable with other methodologies. Penny Morris MD LAB - CHEMISTRY DIVINA OLVERA Performing Organization Address City/[facility]/ZIP Co de Phone Number [facility] [address] [place] [address], [place] [phone] * PTT [facility] (08/07/2024 5:47 AM CDT) Only the most recent of19 resultswithin the time period is included. APTT 35.0 23.0 - 38.4 Seconds 08/07/2024 7:13 AM CDT [facility] Comment:Suggested therapeuti c range for full dose I.V. unfractionated heparin therapy for venous thromboembolism is 71 to 109 seconds. Blood BLOOD SPECIMEN / Unknown Lab Venipuncture / Unknown 08/07/2024 5:47 AM CDT 08/07/2024 6:37 AM CDT Geronimo Burleson MD LAB - COAGULAT ION ORDERABLES [facility] [address] [place] [address], [facility] [phone] * (ABNORMAL) PHOSPHORUS BLOOD (08/07/2024 5:47 AM CDT) Only the most recent of19 resultswithin the time period is included. Phosphorus 5.9(H) 2.9 - 5.1 mg/dL 08/07/2024 7:19 AM CDT [facility] Blood BLOOD SPECIMEN / Unknown Lab Venipuncture / Unknown 08/07/2024 5:47 AM CDT 08/07/2024 6:37 AM CDT Rob Cruz MD LAB - CHEMISTRY DIVINA OLVERA Performing Organization Address City/[facility]/ZIP Co de Phone Number [facility] [address] [place] [phone], [facility] [phone] * IR Central Line Insert Tunnel (08/06/2024 [...] evaluation, please review the evaluation forms in [facility]. For details on monitored clinical parameters during the intra-service sedation time, please review the procedure nurse documentation in [facility]. > Interpreting Provider: Ingrid Harmon MD on 08/09/2024 2:21 PM Impressions 08/06/2024 12:20 PM CDT Impression: Successful placement of left internal jugular tunneled dialysis catheter. I was present for the entire procedure. > Interpreting Provider: Ingrid Harmon MD on 08/06/2024 12:20 PM Narrative 08/06/2024 12:20 PM CDT PROCEDURE: IR CENTRAL LINE INSERT TUNNEL DATE/TIME OF EXAM: 08/06/2024 9:27 AM CLINICAL INFORMATION: None relevant/not provided if blank. Indication: R78.81: MRSA bacteremia B95.62: MRSA bacteremia N18.6: ESRD (end stage renal disease) ([facility]) [employer] Rock Drilling Machine Operator: Candy Harmon M.D. Attending: Candy Harmon M.D. Hand Tire Trimmer: Shaun Gomez M.D. Procedures performed: 1. Insertion [...] central veins under fluoroscopic guidance. A 5 Kuwaiti trocar was placed and a 0.035 guidewire [...] which was then removed. The catheter was adjusted for length under fluoroscopy such that the tip was at the junction of the SVC and RA. Both lumens flushed easily and [...] evaluation, please review the evaluation forms in [facility]. For details on monitored clinical parameters during the intra-service sedation time, please review the procedure nurse documentation in [facility]. Procedure Note Artie Harmon MD - 08/06/2024 PROCEDURE: IR CENTRAL LINE INSERT TUNNEL DATE/TIME OF EXAM: 08/06/2024 9:27 AM CLINICAL INFORMATION: None relevant/not provided if blank. Indication: R78.81: MRSA bacteremia B95.62: MRSA bacteremia N18.6: ESRD (end stage renal disease) ([facility]) [employer] Drilling Machine Operator: Candy Harmon M.D. Attending: Candy Harmon M.D. Hand Tire Trimmer: Shaun Gomez M.D. Procedures performed: 1. Insertion [...] central veins under fluoroscopic guidance. A 5 Kuwaiti trocar was placed and a 0.035 guidewire [...] response to care. Intra-service sedation start time [id number] and end time was 1212 during which I was present. Total physician intra-service sedation time was 32 minutes. For details on pre-moderate sedation and post-moderate sedation patient evaluation, please reviewthe evaluation forms in [facility]. For details on monitored clinical parameters during the intra-service sedation time, please review the procedurenurse documentation in [facility]. Impression: Successful placement of left [...] 3.90 - 5.20 x10E12/L 08/06/2024 4:52 AM [facility] Hemoglobin 8.6(L) 11.9 - 15.8 g/dL 08/06/2024 4:52 AM [facility] Hematocrit 28.9(L) 34.8 - 46.1 % 08/06/2024 4:52 AM [facility] MCV 97.0 80.0 - 98.0 fL 08/06/2024 4:52 AM CDT [facility] MCH 28.9 26.7 - 33.6 pg 08/06/2024 4:52 AM CDT [facility] MCHC 29.8(L) 31.7 - 36.3 g/dL 08/06/2024 4:52 AM CDT [facility] RDW-CV 13.6 11.3 - 14.8 % 08/06/2024 4:52 AM CDT [facility] Platelet Count 608(H) 150 - 420 x10E9/L 08/06/2024 4:52 AM CDT [facility] MPV 9.2 7.8 - 11.4 fL 08/06/2024 4:52 AM CDT [facility] Blood BLOOD SPECIMEN / Unknown Venipuncture / Unknown 08/06/2024 4:02 AM CDT 08/06/2024 4:48 AM CDT Rob Cruz MD LAB - HEMATOLOGY ORD ERABLES [facility] [address] [place] [phone], [facility] [phone] * XR Chest 1Vw Portable (08/05/2024 8:57 [...] PM Narrative 08/06/2024 12:27 PM CDT PROCEDURE: XR CHEST 1VW PORTABLE DATE/TIME OF [...] 7 - 26 mg/dL 08/05/2024 10:04 PM [facility] Creatinine 3.42(H) 0.56 - 0.96 mg/dL 08/05/2024 10:04 PM [facility] Sodium 134(L) 136 - 145 mmol/L 08/05/2024 10:04 PM [facility] Potassium 3.7 3.5 - 4.5 mmol/L 08/05/2024 10:04 PM [facility] Chloride 97(L) 98 - 107 mmol/L 08/05/2024 10:04 PM [facility] CO2 23 22 - 29 mmol/L 08/05/2024 10:04 PM [facility] Glucose 218(H) 70 - 115 mg/dL 08/05/2024 10:04 PM [facility] Calcium 9.3 8.4 - 10.2 mg/dL 08/05/2024 10:04 PM [facility] Anion Gap 14 6 - 16 08/05/2024 10:04 PM [facility] BUN/Creatinine Ratio 4(L) 7 - 23 08/05/2024 10:04 PM [facility] Osmolality Calculated 285 275 - 295 mOsm/kg 08/05/2024 10:04 PM CDT [facility] eGFR by CKD-EPI 18(L) >=90 mL/min/1.7 3 m2 08/05/2024 10:04 PM CDT [facility] Blood BLOOD SPECIMEN / Unknown Venipuncture / Unknown 08/05/2024 8:32 PM CDT 08/05/2024 8:44 PM CDT Mateo Daugherty MD LAB - CHEMISTRY DIVINA OLVERA [facility] [address] [place] [address], [place] [phone] * LACTIC ACID BLOOD (08/05/2024 8:32 PM CDT) Only the most recent of7 resultswithin the time period is included. Lactic Acid-Stat 1.2 <=2.0 mmol/L 08/05/2024 9:14 PM CDT [facility] Blood BLOOD SPECIMEN / Unknown Venipuncture / Unknown 08/05/2024 8:32 PM CDT 08/05/2024 8:44 PM CDT Mateo Daugherty MD LAB - CHEMISTRY DIVINA OLVERA [facility] [address] [place] [address], [place] [phone] * (ABNORMAL) BLOOD GASES ART + COOX PANEL (08/05/2024 8:32 PM CDT) pH Arterial 7.44 7.35 - 7.45 pH 08/05/2024 8:44 PM CDT [facility] pO2 Arterial 99 80 - 100 mmHg 08/05/2024 8:44 PM CDT [facility] pCO2 Arterial 40 35 - 45 mmHg 8:44 PM CDT [facility] HCO3 Arterial 27.2 20.0 - 30.0 mmol/L 08/05/2024 8:44 PM CDT [facility] BE Arterial 2.8(H) -2.0 - 2.0 mmol/L [...] 08/05/2024 8:32 PM CDT 08/05/2024 8:[address] [facility] - 08/05/2024 8:44 PM [facility] Carboxyhemoglobin Normal Concentration: Non-smokers: 0-2%; Smokers: 0-9%; Toxic: >20% Mateo Daugherty MD LAB - BLOOD GASES OR DERABLES Performing Organization Address City/State/[facility] Co de Phone Number [facility] [address] [place] [address], [facility] [phone] * PT-INR [facility] (08/04/2024 2:54 AM CDT) Only the most [...] Cruz MD LAB - COAGULATION OR DERABLES [facility] [address] [place] [address], [facility] [phone] * ECHO MATT COMPLETE (07/30/2024 2:05 PM CDT) LVOT diam 1.747 cm [facility] CV FUJ I PACS Sinus of Valsalva 2.644 cm [facility] CV FUJI PACS Anatomical Region Laterality Modality Ultrasound 07/30/2024 3:43 PM CDT Narrative 08/02/2024 8:49 AM CDT Summary * Left ventricular systolic function is normal visually. * Intact interatrial septum visualized by 2D, color Doppler and agitated saline imaging. * The left atrial appendage is windsock shaped with normal velocity, and there is no thrombus. * No valvular vegetations. Patient Info Name: Leeroy Canales Age: 33 years : 1990 Gender: Female Ht: 67 in Wt: 250 lb BSA: 2.37 m2 HR: 88 bpm BP: 130 / 77 mmHg Exam Date: 07/30/2024 3:43 PM Patient Status: I/P Study Site: [facility] Primary Location: [facility] EStudy Info Technical Quality: Good Exam Type: ECHO MATT COMPLETE Indications A41.02 - Sepsis due to methicillin resistant Staphylococcus aureus (MRSA), unspecified whether acute organ dysfunction present (HCC) * A complete transesophageal echo was performed using 2D, color Doppler, and spectral Doppler. Parcel Post Carrier: Levi Marlow Complications * There were no [...] pharynx, mid-esophagus, distal esophagus, and gastric fundus. Imaging was performed at multiple levels. The patient tolerated the procedure well and there were no complications. The patient was transferred out of the examination area in satisfactory condition. Probe passed by the patent counsel without difficulty. Left Ventricle Left ventricular systolic function is normal visually. Right Ventricle Right ventricular systolic function is normal. Left Atrium The left atrium is dilated. Atrial Septum Intact interatrial septum visualized by 2D, color Doppler and agitated saline imaging. Atrial Appendage The left atrial appendage is windsock shaped with normal velocity, and there is no thrombus. Aortic Valve The aortic valve is trileaflet. No vegetation. There is no aortic valve stenosis. [...] Ruth Wilcox MD on 08/02/2024 08:49 AM Procedure Note Ruth [...] 3:43 PM Patient Status: I/P Study Site: [facility] Primary Location: [facility] EStudy Info Technical Quality: Good Exam Type: ECHO MATT COMPLETE Indications A41.02 - Sepsis due to methicillin resistant Staphylococcus aureus(MRSA), unspecified whether acute organ dysfunction present (HCC) * A complete transesophageal echo was performed using 2D, color Doppler,and spectral Doppler. Parcel Post Carrier: Levi Marlow Complications * There were no [...] 07/28/2024 7:17 PM CDT Nicolás Truong DO 07/28/2024 7:18 PM [facility] Department of Nephrology Procedure Note Procedure: Permcath [...] procedure well. Nicolás Truong DO Nephrology Fellow [facility] Geronimo Burleson MD IR ORDERABLES * CT [...] PM Narrative 07/28/2024 3:14 PM CDT PROCEDURE: CT FOOT RIGHT W CONTRAST DATE/TIME [...] FUJ I PACS LA vol index 0.036 l/m [facility] CV FUJI PACS Myocardial strain charge [...] CDT Narrative 07/28/2024 9:40 AM CDT Summary * The left ventricle is normal [...] 7:15 AM Patient Status: I/P Study Site: [facility] Primary Location: [facility] Info Technical Quality: Fair Exam Type: ECHO COMPLETE W CONTRAST Indications A41.9 - Sepsis, due to unspecified organism, unspecified whether acute organ dysfunction present (HCC) Procedure(s) * A complete 2D, color Doppler, and spectral Doppler transthoracic echocardiogram was performed. * An Ultrasound Enhancing Agent (UEA) was utilized to enhance endocardial definition and opacity the left ventricle. Contrast/Agitated Saline Contrast / Saline: Definity Amount: 0.50 ml Administered By: Nitesh Donis Reason for Technically Difficult Study: body habitus, restricted mobility, positional limitations Staff Referring Physician: Geronimo Burleson Ordering Provider: Geronimo Burleson Attending Physician: Geronimo Burleson Warehouse [employer] Receiving Clerk: Nitesh Donis Left Ventricle The left ventricle [...] 36 ml/m2 by BP MOD. Right Atrium The [...] There is mild pulmonic regurgitation. Mitral Valve The mitral valve is normal. There is no mitral valve stenosis. There is mild mitral valve regurgitation. Tricuspid Valve The tricuspid valve is normal. There is trace tricuspid valve regurgitation. The pulmonary artery systolic pressure is normal, 22 mmHg. Inferior Vena Cava The inferior vena cava is normal in size (< 2.1 cm). There is > 50% collapse of the IVC upon inspiration with an estimated right atrial pressure of 3 mmHg. Pericardium/Pleural There is a trivial pericardial effusion. [...] Ruth Wilcox MD on 07/28/2024 09:40 AM Procedure Note Ruth [...] 7:15 AM Patient Status: I/P Study Site: [facility] Quality: Fair Exam Type: ECHO [...] Provider: Geronimo Burleson Attending Physician: Geronimo Burleson Warehouse [employer] Receiving Clerk: Nitesh Donis Left Ventricle The left ventricle [...] bases. > Dictated by Steve Haney DO (resident programs assistant). I, Arthur Avery MD have personally reviewed and interpreted this examination/study. > Interpreting Provider: Arthur Avery MD on 07/27/2024 5:19 PM Narrative 07/27/2024 5:19 PM CDT PROCEDURE: CT CHEST ABDOMEN PELVIS W CONT, DATE/TIME OF EXAM: 07/27/2024 1:43 PM, LOCATION [facility] INDICATION: A41.9: Sepsis, due to unspecified [...] CONT, DATE/TIME OF EXAM:07/27/2024 1:43 PM, LOCATION [facility] INDICATION: A41.9: Sepsis, due to unspecified [...] bases. > Dictated by Steve Haney DO (resident programs assistant). I, Arthur Avery MD have personally reviewed and interpreted this examination/study. > Interpreting Provider: Arthur Avery MD on 07/27/2024 5:19 PM [address]imo Burleson MD CT ORDERABLES * CULTURE FUNGUS OTHER+FUNGUS SMEAR (07/27/2024 9:11 AM CDT) Only the most recent of3 resultswithin the time period is included. Culture No fungus isolated CHARLES 08/23/2024 6:22 AM CDT [facility] Fungus Stain No yeast or hyphae seen 08/23/2024 6:22 AM CDT [facility] Microbiology SYNOVIAL FLUID / Unknown Collection / Unknown 07/27/2024 9:11 AM CDT 07/27/2024 10:26 AM CDT Tao Chapman MD LAB - MICROBIOLOGY O RDERABLES [facility] [address] [place] [address], [facility] [phone] * (ABNORMAL) CULTURE WOUND+GRAM STAIN (07/27/2024 9:11 AM CDT) Only the most recent of2 resultswithin the time period is included. Culture Rare Staphylococcus aureus methicillin-resista nt (MRSA)(A) CHARLES 07/30/2024 4:29 AM CDT [facility] Comment:Staphylococcus aureu s methicillin-resistant (MRSA) detected by penicillin binding protein immunoassay. Contact precautions required. Conventional antibiotic susceptibility testing to follow. Gram Stain Light Polymorphonuclear cells 07/30/2024 4:29 AM CDT [facility] Gram Stain No organisms seen 024 4:29 AM CDT [facility] Microbiology ENTIRE SHOULDER REGION / Unknown Collection / Unknown 07/27/2024 9:11 AM CDT 07/27/2024 10:26 AM CDT Narrative [facility] - 07/30/2024 4:29 AM CDT Methicillin-resistant [...] MD LAB - MICROBIOLOGY O RDERABLES [facility] [address] [place] [address], [facility] [phone] * ETT LINE PERFORMABLE (07/27/2024 8:25 AM CDT) Narrative Lee Ayala MD - 07/27/2024 8:25 AM CDT Lee Ayala MD 07/27/2024 8:25 AM Endotracheal Tube Placement: Patient Location: OR. Intubation Event Date/Time: 07/27/2024 7:45 AM Procedure: intubation ([id number]) Procedure Section: Sedation: under general anesthesia. Indications [...] the procedure Provider #1: Kavita Oneill MD. Kavita Oneill MD GENERAL ANESTHESIA ORDERABLES * TYPE + SCREEN PANEL (07/26/2024 3:48 PM CDT) Only the most recent of2 resultswithin the time period is included. Antibody Screen NEG 5:04 PM CDT [facility] ABO Rh A POS 07/26/2024 5:04 PM CDT [facility] Blood Bank BLOOD SPECIMEN / Unknown Lab Venipuncture / Unknown 07/26/2024 3:48 PM CDT 07/26/2024 4:20 PM CDT Ralph Burt MD LAB - BLOOD BANK ORD KAUSHAL Performing Organization Address [facility]/ZIP Co de Phone Number [facility] [address] [place] [address], [facility] [phone] * (ABNORMAL) PROCALCITONIN LEVEL (07/26/2024 8:50 AM CDT) PROCALCITONIN 2.18(H) <=0.10 ng/mL 07/26/2024 9:52 AM CDT [facility] Blood BLOOD SPECIMEN / Unknown Lab Venipuncture / Unknown 07/26/2024 8:50 AM CDT 07/26/2024 8:59 AM CDT Narrative [facility] - 07/26/2024 9:52 AM CDT The change in procalcitonin (PCT) concentration over time provides support in decision making on antibiotic discontinuation for suspected or confirmed septic patients. Follow-up samples should be tested once every 1-2 days based upon physician discretion taking into account the patient s evolution and progress. Consider discontinuation of antibiotic therapy if the PCT current is <= 0.5 ng/mL or if the delta PCT is > 80%. Duration of antibiotics should not be determined solely on PCT; established guidelines for the indication should be followed. PCT peak: Highest observed PCT concentration PCT current: Most recent PCT concentration Calculate delta PCT using the following equation: Delta PCT = PCT Peak PCT current X 100% PCT Peak The Change in Procalcitonin Calculator is available at [email or web address] If clinical picture has not improved and PCT remains high, reevaluate and consider treatment failure or other causes. Ralph Burt MD LAB - CHEMISTRY DIVINA OLVERA [facility] [address] [place] [address], [facility] [phone] * (ABNORMAL) B-TYPE NATRIURETIC PEPTIDE (07/26/2024 8:50 AM CDT) Only the most recent of3 resultswithin the time period is included. BNP 380(H) <100 pg/mL 07/26/2024 9:33 AM CDT [facility] Comment: A decision threshold of 100 pg/mL has been demonstrated to provide the maximal combination of sensitivity, specificity and predictive value for the diagnosis of congestive heart failure (CHF). Virtually all patients with no evidence of CHF have BNP values less than 100 pg/mL. A BNP value greater than 100 pg/mL is consistent with the diagnosis of CHF in the appropriate clinical setting. In a study of 693 patients (male and female) with diagnosed CHF, the following values were determined based on the NYHA functional classification system: NYHA Functional Class Mean Valule (pg/mL) % >100 pg/mL I 320 58.1 II 432 73.0 III 656 79.0 IV 1635 98.3 Blood BLOOD SPECIMEN / Unknown Lab Venipuncture / Unknown 07/26/2024 8:50 AM CDT 07/26/2024 8:59 AM CDT Ralph Burt MD LAB - CHEMISTRY RAADMichaela RAHMANLIZA Performing Organization Address City/[place] [facility]/ZIP Co de Phone Number [facility] [address] [place] [address], [facility] [phone] * (ABNORMAL) BCID PANEL (07/25/2024 11:16 PM CDT) Only the most recent of2 resultswithin the time period is included. Staphylococcus aureus Detected (A) Not detected 07/26/2024 4:[address] [facility] MECA/C and MREJ (Methicillin-Resi stance Gene) Detected (A) Not detected 07/26/2024 4:[address] [facility] Comment:Results indicate met hicillin-resistant Staphylococcus aureus (MRSA). Methicillin resistance detected. Blood PERIPHERAL BLOOD / Unknown Lab Venipuncture / Unknown 07/25/2024 11:16 PM CDT 07/25/2024 11:24 PM CDT Narrative [facility] - 07/26/2024 4:44 PM CDT Blood Culture ID Panel performed by [employer] multiplex PCR. The Test panel includes: Gram [...] complex, Escherichia coli, Klebsiella (formerly Enterobacter) aerogenes, Klebsiella oxytoca, Klebsiella pneumoniae group, Proteus (genus), Salmonella species, Serratia marcescens. YEAST: Larisa albicans, Larisa auris, Larisa glabrata, Larisa krusei, Larisa parapsilosis, Larisa tropicalis, Cryptococcus neoformans/gattii. Antimicrobial Resistance Genes: CTX-M (extended-spectrum beta-lactamase), IMP ([place]allo beta-lactamase), KPC (carbapenemase), mcr-1 (colistin resistance determinant) mecA/C (methicillin-resistance), mecA/C and MREJ (methicillin-resistance - MRSA), NDM ([place] onagqiz-aszq-zrbiozawn), OXA-48-like (oxacillinase beta-lactamase),Geo/B (vancomycin-resistance), VIM ([place] Intergrom-Encoded [place]allo beta-lactamase). Ralph Burt MD LAB - MICROBIOLOGY O RDERABLES [facility] [address] [place] [address], [facility] [phone] * (ABNORMAL) IRON + TRANSFERRIN PANEL (06/02/2024 5:52 AM CDT) Only the most recent of2 resultswithin the time period is included. [facility] Iron 42 40 - 150 ug/dL 06/02/2024 8:03 AM CDT [facility] Transferrin 166(L) 174 - 382 mg/dL 06/02/2024 8:03 AM CDT [facility] Transferrin Saturation % 20 16 - 50 % 06/02/2024 8:03 AM CDT [facility] TIBC Calculated 208(L) 240 - 450 ug/dL 06/02/2024 8:03 AM CDT [facility] Blood BLOOD SPECIMEN / Unknown Lab Venipuncture / Unknown 06/02/2024 5:52 AM CDT 06/02/2024 6:49 AM CDT Rob Cruz MD LAB - CHEMISTRY DIVINA OLVERA [address] [address], [facility] [phone] * (ABNORMAL) FERRITIN (06/02/2024 5:52 AM CDT) Only the most recent of2 resultswithin the time period is included. Ferritin 484(H) 13 - 204 ng/mL 06/02/2024 8:19 AM CDT [facility] Blood BLOOD SPECIMEN / Unknown Lab Venipuncture / Unknown 06/02/2024 5:52 AM CDT 06/02/2024 6:49 AM CDT Rob Cruz MD LAB - CHEMISTRY DIVINA OLVERA Performing Organization Address City/[facility]/ZIP Co de Phone Number [address] [address], [place] [phone] * HEPATITIS C AB SCREEN RFLX NAAT QUANT (05/31/2024 6:38 PM CDT) Only the most recent of2 resultswithin the time period is included. Hepatitis C Antibody Non-react talia Non-reac tive 05/31/2024 7:33 PM CDT [facility] Comment:Hepatitis C Antibody screen indicates no serologic [...] LAB - CHEMISTRY ORDERABLES Performing Organization Address City/State/[facility] Co de Phone Number [place] [address] [place] [address], [facility] [phone] * MRI SHOULDER LEFT WWO CONT (05/28/2024 8:56 AM CDT) Anatomical Region Laterality Modality Upper Extremity Magnetic Resonan ce 05/28/2024 9:35 AM CDT Impressions 05/28/2024 12:19 PM CDT Impression: Distended distal subacromial subdeltoid bursa with [...] Dictated by Neisha Moreira M.D. - Diagnostic Backend Java Developer. I, Yolanda Rosales MD have personally reviewed and interpreted this examination/study. > Interpreting Provider: Yolanda Rosales MD on 05/28/2024 12:19 PM Narrative 05/28/2024 12:19 PM CDT PROCEDURE: MRI SHOULDER LEFT WWO CONT, DATE/TIME OF EXAM: 05/28/2024 8:56 AM, LOCATION [facility] INDICATION: N18.6: ESRD (end stage renal [...] CONT, DATE/TIME OF EXAM: 48:56 AM, LOCATION [facility] INDICATION: N18.6: ESRD (end stage renal disease) ([facility]) ADDITIONAL CLINICAL INFORMATION: Ordering Provider [...] Dictated by Neisha Moreira M.D. - Diagnostic Backend Java Developer. I, Yolanda Rosales MD have personally reviewed and interpreted this examination/study. > Interpreting Provider: Yolanda Rosales MD on 2:19 PM Hunter Chin III, MD MR ORDERABLES * HEMOGLOBIN ELECTROPHORESIS (05/27/2024 6:59 AM CDT) Only the most recent of2 resultswithin the time period is included. Interpretation Hemoglobin Pattern Normal Pattern Normal Pattern 05/28/2024 1:54 PM T [facility] Comment: Capillary hemoglobin (Hb) electrophoresis shows two Hb bands with electrophoretic mobilities corresponding to HbA and HbA2. No abnormal hemoglobins detected. One or two gene deletion alpha thalassemia cannot be excluded since these conditions are not associated with abnormal findings on routine hemoglobin electrophoresis and except for mild microcytosis, are generally not associated with other hematologic abnormalities. Fredi Coates PhD, [facility] Clinical Water Leak Repairer coding analyst These results/interpretation were reviewed and verified by the attending physician: Gail Montero MD Attending Physician Transfusion Medicine/Clinical Pathology *The electrophoresis pattern and the interpretation have been reviewed and verified by the teaching physician. Hemoglobin A 97.7 97.0 - 98.2 % 05/28/2024 1:54 PM CDT [facility] Hemoglobin A2 2.3 1.8 - 3.0 % 05/28/2024 1:54 PM [facility] Blood BLOOD SPECIMEN / Unknown Lab Venipuncture / Unknown 05/27/2024 6:59 AM CDT 05/27/2024 7:04 AM CDT Hunter Chin III, MD LAB - CHEMISTRY ORDERABLES [facility] [address] [place] [address], [facility] [phone] * XR SHOULDER LEFT 2VW OR MORE [...] PM Narrative 05/24/2024 2:22 PM CDT PROCEDURE: XR SHOULDER LEFT 2VW OR MORE [...] 41 - 74 % 03/01/2024 4:12 AM [facility] Lymphocyte % 12(L) 17 - 47 % 03/01/2024 4:12 AM [facility] Monocyte % 7 3 - 11 % 03/01/2024 4:12 AM [facility] Eosinophil % 8(H) 0 - 7 % 03/01/2024 4:12 AM [facility] Basophil % 1 0 - 2 % 03/01/2024 4:12 AM [facility] Neutrophil Absolute 10.15(H) 1.60 - 7.50 x10E9/L 03/01/2024 4:12 AM [facility] Lymphocyte Absolute 1.69 1.00 - 4.40 x10E9/L 03/01/2024 4:12 AM CDT [facility] Monocyte Absolute 0.99 0.15 - 1.00 x10E9/L 03/01/2024 4:12 AM CDT [facility] Eosinophil Absolute 1.13(H) 0.00 - 0.60 x10E9/L 03/01/2024 4:12 AM CDT [facility] Basophil Absolute 0.14(H) 0.00 - 0.13 x10E9/L 03/01/2024 4:12 AM CDT [facility] RBC Morphology REVIEWED 03/01/2024 4:12 AM CDT [facility] Blood BLOOD SPECIMEN / Unknown Venipuncture / Unknown 03/01/2024 3:10 AM CDT 03/01/2024 3:25 AM CDT Justyn Galvez DO LAB - HEMATOLOGY ORD ERABLES [facility] [address] [place] [address], [facility] [phone] * IR CENTRAL LINE REPLACE (02/25/2024 11:21 AM CDT) Anatomical Region Laterality Modality X-Ray Angiograph y 02/25/2024 11:2 0 AM CDT Impressions 02/25/2024 11:22 AM CDT IMPRESSION: Successful replacement of central line under fluoroscopic guidance. > Interpreting Provider: Husam Palacios MD on 02/25/2024 11:22 AM Narrative 02/25/2024 11:22 AM CDT PROCEDURE: IR CENTRAL LINE REPLACE DATE/TIME OF EXAM: 02/25/2024 11:21 AM CLINICAL INFORMATION: None relevant/not provided if blank. 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 FLUOROSCOPY DOSE: 2 mGy Reference air kerma (ka,r). 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 FLUOROSCOPY DOSE: [...] AM CDT Impression: Ultrasound guided aspiration of left scapula/shoulder collection fluid from the left shoulder collection, as described above. I performed/was present throughout the procedure and provided the moderate sedation service. Please see nursing flow chart for more details. . > Interpreting Provider: Tommie Quintanilla MD on 02/27/2024 8:34 AM Narrative 02/27/2024 8:34 AM CDT PROCEDURE: CT GUIDED NEEDLE PLACEMENT DATE/TIME OF [...] left shoulder. The limited USG evaluation demonstrated collection in the region of the [...] was sent for necessary laboratory work up. There is no immediate [...] acid-fast bacillus isolated 04/05/2024 7:24 AM CDT [facility] AFB Smear No acid-fast bacilli seen 04/05/2024 7:24 AM CDT [facility] Microbiology SPECIMEN FROM ABSCESS / Unknown Collection / Unknown 02/25/2024 10:24 AM CDT 02/25/2024 10:55 AM CDT Kranthi Miles MD LAB - MICROBIOLOGY O RDERABLES [facility] [address] [place] [address], [facility] [phone] * (ABNORMAL) PTH INTACT W/O CALCIUM (02/25/2024 1:10 AM CDT) PTH Intact 93.0(H) 8.0 - 77.0 pg/mL 02/25/2024 2:44 AM CDT [facility] Blood BLOOD SPECIMEN / Unknown Lab Venipuncture / Unknown 02/25/2024 1:10 AM CDT 02/25/2024 1:46 AM CDT Rafa Patel MD LAB - CHEMISTRY DIVINA OLVERA [facility] [address] [place] [address], [place] [phone] * (ABNORMAL) VITAMIN D 25-HYDROXY (02/25/2024 1:10 AM CDT) Vitamin D, 25 Hydroxy 12.3(L) 30.0 - 80.0 ng/mL 02/25/2024 2:48 AM CDT [facility] Comment: The recommendations for 25-Hydroxy Vitamin D clinical decision points are as follows: Deficient: <20.0 ng/mL Insufficient: 20.0 - 29.9 ng/mL Sufficient: 30.0 - 100.0 ng/mL Potential Toxicity: >100 ng/mL Reference: The Endocrine Society Clinical Practice Guidelines. 2011 If the 25-Hydroxy Vitamin D results are inconsitent with clinical evidence, it is recommended that follow-up testing using a method such as LC/MS/MS be performed to confirm the result. Blood BLOOD SPECIMEN / Unknown Lab Venipuncture / Unknown 02/25/2024 1:10 AM CDT 02/25/2024 1:46 AM CDT Rafa Patel MD LAB - CHEMISTRY DIVINA OLVERA [address] [address], [facility] [phone] * FOLATE (02/25/2024 1:10 AM CDT) Pathologist [facility] Folate 10.2 7.0 - 31.4 ng/mL 02/25/2024 2:48 AM CDT [facility] Blood BLOOD SPECIMEN / Unknown Lab Venipuncture / Unknown 02/25/2024 1:10 AM CDT 02/25/2024 1:46 AM CDT Rafa Patel MD LAB - CHEMISTRY DIVINA OLVERA [address] [address], [facility] [phone] * VITAMIN B12 (02/25/2024 1:10 AM CDT) Vitamin B12 667 213 - 816 pg/mL 02/25/2024 2:48 AM CDT [facility] Blood BLOOD SPECIMEN / Unknown Lab Venipuncture / Unknown 02/25/2024 1:10 AM CDT 02/25/2024 1:46 AM CDT Rafa Patel MD LAB - CHEMISTRY DIVINA OLVERA [facility] [address] [place] [address], [facility] [phone] * CHLAMYDIA + GC AMPLIFIED PROBE (02/24/2024 11:14 PM CDT) Only the most recent of2 resultswithin the time period is included. Pathologist [facility] Chlamydia Amplified Probe Negative Negative 02/25/2024 7:24 PM CDT [facility] GC Amplified Probe Negative Negative 02/25/2024 7:24 PM CDT [facility] Microbiology URINE / Unknown Collection / Unknown 02/24/2024 11:14 PM CDT 02/24/2024 11:14 PM CDT Narrative [facility] - 02/25/2024 7:24 PM CDT Results based on detection/no detection of ribosomal RNA by amplified method. Justyn Galvez DO LAB - MICROBIOLOGY O RDERAALONZO [facility] [address] [place] [address], [facility] [phone] * (ABNORMAL) URINE MICROSCOPIC ONLY REFLEX TO CULTURE (02/24/2024 11:06 PM CDT) Pathologist [facility] Reflex Status Culture to follow 02/24/2024 11:37 PM CDT [facility] WBC UA 6-10(A) None Seen, 0-5 /HPF 02/24/2024 11:37 PM CDT [facility] Bacteria UA Trace(A) None /HPF 02/24/2024 11:37 PM CDT [facility] Squamous Epithelial Cells UA 0-2 None Seen, 0-2, 3-5 /HPF 02/24/2024 11:37 PM CDT [facility] Urine URINE SPECIMEN OBTAINED BY CLEAN CATCH PROCEDURE / Unknown Collection / Unknown 02/24/2024 11:06 PM CDT 02/24/2024 11:13 PM CDT Narrative [facility] - 02/24/2024 11:37 PM CDT Sebletonie Galvez DO LAB - URINALYSIS ORD ERABLES [facility] [address] [place] [address], [facility] [phone] * (ABNORMAL) URINALYSIS REFLEX MICROSCOPIC REFLEX CULTURE (02/24/2024 11:06 PM CDT) Color UA Yellow Straw, Yellow 02/24/2024 11:36 PM CDT [facility] Clarity UA Slt Cloudy(A) Clear 02/24/2024 11:36 PM CDT [facility] Specific [place] UA 1.015 1.005 - 1.030 02/24/2024 11:36 PM CDT [facility] pH UA 5.0 5.0 - 8.0 pH 02/24/2024 11:36 PM CDT [facility] Protein UA 3+(A) Negative 02/24/2024 11:36 PM CDT [facility] Glucose UA 2+(A) Negative 02/24/2024 11:36 PM CDT [facility] Ketone UA Trace(A) Negative 02/24/2024 11:36 PM T [facility] Bilirubin UA Negative Negative 02/24/2024 11:36 PM CDT [facility] Blood UA Negative Negative 02/24/2024 11:36 PM CDT [facility] Nitrite UA Negative Negative 02/24/2024 11:36 PM T [facility] Leukocyte Esterase 2+(A) Negative 02/24/2024 11:36 PM CDT [facility] Urobilinogen UA Negative Negative mg/dL 02/24/2024 11:36 PM T [facility] Urine URINE SPECIMEN OBTAINED BY CLEAN CATCH PROCEDURE / Unknown Collection / Unknown 02/24/2024 11:06 PM CDT 02/24/2024 11:13 PM CDT Narrative [facility] - 02/24/2024 11:36 PM CDT [facility] LAB - URINALYSIS ORD ERABLES [facility] [address] [place] [address], [place] [phone] * (ABNORMAL) CULTURE URINE (02/24/2024 11:06 PM CDT) Culture Urine 50,000-100,000 CFU/mL Enterococcus faecium vancomycin-resi stant (VRE)(A) CHARLES 02/27/2024 11:22 PM CDT [facility] Comment:Susceptibility to fo llow Culture Urine 50,000-100,000 CFU/mL urogenital nish CHARLES 02/27/2024 11:22 PM CDT [facility] Urine URINE SPECIMEN OBTAINED BY CLEAN CATCH PROCEDURE / Unknown Collection / Unknown 02/24/2024 11:06 PM CDT 02/24/2024 11:37 PM CDT Narrative Organism Antibiotic Method Susceptibility Enterococcus faecium vancomycin-resistant (VRE) Ampicillin CHARLES >=32 ug/mL: Resistant Enterococcus faecium vancomycin-resistant (VRE) Linezolid CHARLES 2 ug/mL: Susceptible Enterococcus faecium vancomycin-resistant (VRE) Nitrofurantoin CHARLES 64 ug/mL: Intermediate Enterococcus faecium vancomycin-resistant (VRE) Vancomycin CHARLES >=32 ug/mL: Resistant [facility] LAB - MICROBIOLOGY O RDERABLES Performing Organization Address City/[facility]/ZIP Co de Phone Number [facility] [address] [place] [address], [facility] [phone] * HIV-1 HIV-2 ANTIBODY + HIV P24 AG PANEL (02/24/2024 8:57 AM CDT) Only the most recent of2 resultswithin the time period is included. HIV Antigen/Antibod y 1 & 2 Non-reacti ve Non-react talia 02/24/2024 10:03 AM CDT [facility] Comment:No Laboratory eviden ce of HIV infection. Blood BLOOD SPECIMEN / Unknown Lab Venipuncture / Unknown 02/24/2024 8:57 AM CDT 02/24/2024 9:00 AM CDT Rafa Patel MD LAB - CHEMISTRY DIVINA OLVERA Performing Organization Address [facility]/ZIP Co de Phone Number [facility] [address] [place] [phone], [facility] [phone] * (ABNORMAL) HEPATITIS B SURFACE ANTIBODY (02/24/2024 1:30 AM CDT) Hepatitis B Virus Surface Antibody Reactive( A) Non-react talia 02/24/2024 2:45 AM CDT [facility] Comment: > 12 mIU/mL Hepatitis B surface Antibody (HBsAb). Reactive for HBsAb - individual is considered immune to Hepatitis B Virus infection. Hepatitis B Surface Antibody Quantitative 37.6(H) <8.0 mIU/mL 02/24/2024 2:45 AM CDT [facility] Comment: Hepatitis B Surface Antibody Numeric Result Interpretation: Nonreactive: <8.0 mIU/mL Indeterminate: 8.0 - 12.0 mIU/mL Reactive: >12.0 mIU/mL Blood BLOOD SPECIMEN / Unknown Lab Venipuncture / Unknown 02/24/2024 1:30 AM CDT 02/24/2024 2:01 AM CDT Tao Stein MD LAB - CHEMISTRY DIVINA OLVERA Performing Organization Address [facility]/ZIP Co de Phone Number [address] [address], [facility] [phone] * XR FOOT RIGHT 3VW OR MORE [...] PM Narrative 02/24/2024 2:33 PM CDT PROCEDURE: XR FOOT RIGHT 3VW OR MORE [...] talia Non-react talia 02/23/2024 8:52 AM CDT [facility] Comment: No Laboratory evidence of syphilis infection. Note: Circulating antibodies may be low or undetectable in early infection. If recent exposure is suspected, re-draw sample in 2-4 weeks and repeat testing. Blood BLOOD SPECIMEN / Unknown Lab Venipuncture / Unknown 02/23/2024 7:37 AM CDT 02/23/2024 7:41 AM CDT Justyn Galvez DO LAB - SEROLOGY ORDER RICHARD Performing Organization Address [facility]/ZIP Co de Phone Number [address] [address], [facility] [phone] * HEPATITIS B SURFACE ANTIGEN W RFLX CONFIRMATION (02/23/2024 7:37 AM CDT) Pathologist [facility] Hepatitis B Virus Surface Antigen Non-reacti ve Non-reacti ve 02/24/2024 1:30 AM [facility] Blood BLOOD SPECIMEN / Unknown Lab Venipuncture / Unknown 02/23/2024 7:37 AM CDT 02/23/2024 7:41 AM CDT Tao Stein MD LAB - CHEMISTRY ORDMichaela OLVERA Performing Organization Address [facility] Co de Phone Number [address] [address], [facility] [phone] * (ABNORMAL) URINALYSIS REFLEX TO MICROSCOPIC NO CULTURE (02/23/2024 12:39 AM CDT) Only the most recent of2 resultswithin the time period is included. Color UA Yellow Straw, Yellow 02/23/2024 12:53 AM [facility] Clarity UA Cloudy(A) Clear 02/23/2024 12:53 AM [facility] Specific [place] UA 1.013 1.005 - 1.030 02/23/2024 12:53 AM [facility] pH UA 6.0 5.0 - 8.0 pH 02/23/2024 12:53 AM [facility] Protein UA 3+(A) Negative 02/23/2024 12:53 AM [facility] Glucose UA 3+(A) Negative 02/23/2024 12:53 AM [facility] Ketone UA Negative Negative 02/23/2024 12:53 AM [facility] Bilirubin UA Negative Negative 02/23/2024 12:53 AM [facility] Blood UA 1+(A) Negative 02/23/2024 12:53 AM [facility] Nitrite UA Negative Negative 02/23/2024 12:53 AM [facility] Leukocyte Esterase 3+(A) Negative 02/23/2024 12:53 AM [facility] Urobilinogen UA Negative Negative mg/dL 02/23/2024 12:53 AM [facility] RBC UA 51-100(A) None Seen, 0-2, 3-5 /HPF 02/23/2024 12:53 AM [facility] WBC UA >100(A) None Seen, 0-5 /HPF 02/23/2024 12:53 AM [facility] Bacteria UA Trace(A) None /HPF 02/23/2024 12:53 AM [facility] Yeast Budding UA Occasional( A) None /HPF 02/23/2024 12:53 AM [facility] Squamous Epithelial Cells UA 11-20(A) None Seen, 0-2, 3-5 /HPF 02/23/2024 12:53 AM [facility] Mucus UA 1+ /LPF 02/23/2024 12:53 AM [facility] Amorphous Crystals Rare(A) None /HPF 02/23/2024 12:53 AM [facility] Urine URINE SPECIMEN OBTAINED BY CLEAN CATCH PROCEDURE / Unknown Collection / Unknown 02/23/2024 12:39 AM CDT 02/23/2024 12:45 AM CDT [facility] - 02/23/2024 12:53 AM CDT Justyn Galvez DO LAB - URINALYSIS ORD ERABLES [facility] [address] [place] [address], [facility] [phone] * (ABNORMAL) MRSA DNA PCR (02/22/2024 11:59 PM CDT) MRSA DNA by PCR Detected( A) Not detected 02/23/2024 3:29 AM CDT [facility] Microbiology SPECIMEN FROM NASAL FOSSAE / Unknown Collection / Unknown 02/22/2024 11:59 PM CDT 02/23/2024 12:02 AM CDT Narrative [facility] - 02/23/2024 3:29 AM CDT Methicillin-resistant Staphylococcus aureus (MRSA) DNA is detected (presumed colonized with MRSA). Justyn Galvez LAB - MICROBIOLOGY O DARRELL Performing Organization Address City/[facility]/ZIP Co de Phone Number [facility] [address] [place] [address], [facility] [phone] * CULTURE GC (02/22/2024 10:43 PM CDT) Pathologist [facility] Culture Negative for Neisseria gonorrhoeae CHARLES 02/26/2024 8:36 AM CDT [facility] Microbiology SYNOVIAL FLUID / Unknown Collection / Unknown 02/22/2024 10:43 PM CDT 02/22/2024 10:57 PM CDT Justyn Galvez LAB - MICROBIOLOGY O DARRELL Performing Organization Address City/[facility]/ZIP Co de Phone Number [facility] [address] [place] [address], [facility] [phone] * VANCOMYCIN LEVEL TROUGH (05/21/2023 4:50 AM CDT) Only the most recent of3 resultswithin the time period is included. Vancomycin Trough 15.5 10.0 - 20.0 ug/mL 05/21/2023 5:41 AM CDT [facility] Blood BLOOD SPECIMEN / Unknown Lab Venipuncture / Unknown 05/21/2023 4:50 AM CDT 05/21/2023 5:30 AM CDT Narrative [facility] - 05/21/2023 5:41 AM CDT See institution protocol. Irene Walker MD LAB - CHEMISTRY DIVINA OLVERA Performing Organization Address [facility]/ZIP Co de Phone Number [address] [address], [facility] [phone] * (ABNORMAL) VANCOMYCIN LEVEL PEAK (05/20/2023 9:18 AM CDT) Only the most recent of4 resultswithin the time period is included. Vancomycin Peak 20.1(L) 25.0 - 40.0 ug/mL 05/20/2023 10:01 AM CDT [facility] Blood BLOOD SPECIMEN / Unknown Lab Venipuncture / Unknown 05/20/2023 9:18 AM CDT 05/20/2023 9:22 AM CDT Narrative [facility] - 05/20/2023 10:01 AM CDT See institution protocol. Data does not support the use of vancomycin peak concentration for efficacy. Irene Walker MD LAB - CHEMISTRY DIVINA OLVERA Performing Organization Address [facility] Co de Phone Number [address] [address], [facility] [phone] * CARDIAC EKG ORDER (05/19/2023 2:32 PM CDT) Only the most recent of2 resultswithin the time period is included. Narrative 05/19/2023 2:32 PM CDT Ordered by an unspecified provider. Scanned Document CARDIAC SERVICES ORD ERABLES * (ABNORMAL) RBC MORPHOLOGY (05/19/2023 6:38 AM CDT) Only the most recent of4 resultswithin the time period is included. Pathologist [facility] Platelet Estimate Adequate Adequate 023 8:02 AM CDT [facility] Anisocytosis 1+(A) None 05/19/2023 8:02 AM CDT [facility] Hypochromia Few(A) None 05/19/2023 8:02 AM CDT [facility] Polychromasia Few(A) None 05/19/2023 8:02 AM CDT [facility] Schistocytes Occasional( A) None 05/19/2023 8:02 AM CDT [facility] Blood BLOOD SPECIMEN / Unknown Lab Venipuncture / Unknown 05/19/2023 6:38 AM CDT 05/19/2023 6:51 AM CDT Alfonso Jasmine MD LAB - HEMATOLOGY OR DERABLES Performing Organization Address City/[facility]/ZIP Co de Phone Number [facility] [address] [place] [address], [facility] [phone] * (ABNORMAL) PROTEIN CREATININE RATIO URINE RANDOM PNL (05/18/2023 2:53 PM CDT) Protein Urine 214 Not Established mg/dL 05/18/2023 8:10 PM CDT [facility] Comment:Result obtained by d ilution. Creatinine Urine 20 Not Established mg/dL 05/18/2023 8:10 PM CDT [facility] Comment:Result obtained by d ilution. Protein/Creati nine Ratio Urine 10.70(H) <0.10 05/18/2023 8:10 PM CDT [facility] Urine URINE SPECIMEN OBTAINED BY CLEAN CATCH PROCEDURE / Unknown Collection / Unknown 05/18/2023 2:53 PM CDT 05/18/2023 3:05 PM CDT Irene Walker MD LAB - URINE CHEMISTR Y ORDERABLES Performing Organization Address City/[facility]/ZIP Co de Phone Number [facility] [address] [place] [phone], [facility] [phone] * CT HUMERUS RIGHT W CONTRAST (05/18/2023 [...] abscess. > Dictated by Robert Woodruff MD (resident programs assistant). ISorin have personally reviewed and interpreted this examination/study. > Interpreting Provider: Sorin Veronica on 05/18/2023 1:39 PM Narrative 05/18/2023 1:39 PM CDT PROCEDURE: CT HUMERUS RIGHT W CONTRAST, DATE/TIME OF EXAM: 05/18/2023 1:14 AM, LOCATION [facility] INDICATION: M79.89: Arm swelling ADDITIONAL CLINICAL [...] CONTRAST, DATE/TIME OF EXAM: :14 AM, LOCATION [facility] INDICATION: M79.89: Arm swelling ADDITIONAL CLINICAL [...] abscess. > Dictated by Robert Woodruff MD (resident programs assistant). Sorin Kim have personally reviewed and interpreted [...] 4.Cardiomegaly. > Dictated by Robert Woodruff MD (resident programs assistant). Sorin Kim have personally reviewed and interpreted this examination/study. > Interpreting Provider: Sorin Veronica on 05/18/2023 1:37 PM Narrative 05/18/2023 1:37 PM CDT PROCEDURE: CT ANGIO CHEST PULM EMBOLISM, DATE/TIME OF EXAM: 05/18/2023 1:14 AM, LOCATION [facility] INDICATION: R09.02: Hypoxia ADDITIONAL CLINICAL INFORMATION: [...] DATE/TIME OF EXAM: 05/18/2023 1:14 AM, LOCATION [facility] INDICATION: R09.02: Hypoxia ADDITIONAL CLINICAL INFORMATION: [...] 4.Cardiomegaly. > Dictated by Robert Woodruff MD (resident programs assistant). I, Sorin Veronica have personally reviewed and interpreted this examination/study. > Interpreting Provider: Sorin Veronica on 05/18/2023 1:[address] MD [address] ORDERABLES * TROPONIN-I HIGH SENSITIVE REFLEX 1HOUR (05/17/2023 11:40 PM CDT) Troponin I High Sensitive 3 <=14 ng/L 05/18/2023 12:21 AM CDT [facility] Delta Troponin I HS 05/18/2023 12:21 AM CDT [facility] Comment:Delta value intentio josé miguel not calculated. Baseline to 1 hour specimen collection interval exceeded. Blood BLOOD SPECIMEN / Unknown Venipuncture / Unknown 05/17/2023 11:40 PM CDT 05/17/2023 11:40 PM CDT Alfonso Jasmine MD LAB - CHEMISTRY ORD ERABLES [facility] [address] [place] [phone], [facility] [phone] * EKG 12-LEAD (05/17/2023 10:06 PM CDT) Only the most recent of4 resultswithin the time period is included. Ventricular Rate 90 BPM [facility] MUSE Atrial Rate 90 BPM [facility] MUSE P-R Interval 160 ms [facility] MUSE QRS Duration ms 80 ms [facility] MUSE Q-T Interval ms 370 ms [facility] MUSE QTC Calculation (Bezet) 452 ms [facility] MUSE Calculated P [place] 43 degrees [facility] MUSE Calculated R [place] 7 degrees [facility] MUSE Calculated T [place] 26 degrees [facility] MUSE Interpretation EKG NORMAL SINUS RHYTHM NORMAL ECG Confirmed by LITZY WHITTAKER MDSHORE ([id number]) on 05/18/2023 11:42:30 AM [facility] MUSE 05/17/2023 10:0 6 PM CDT 05/18/2023 11:42 AM CDT Alfonso Jasmine MD ECG ORDERABLES [facility] MUSE * (ABNORMAL) BLOOD GASES SUZANNE + COOX PANEL (05/17/2023 10:06 PM CDT) Only the most recent of2 resultswithin the time period is included. Pathologist [facility] pH Venous 7.39 7.32 - 7.42 pH 05/17/2023 10:12 PM [facility] pO2 Venous 54(H) 35 - 40 mmHg 05/17/2023 10:12 PM [facility] pCO2 Venous 46 40 - 50 mmHg 05/17/2023 10:12 PM [facility] HCO3 Venous 27.8 20 - 30 mmol/L 05/17/2023 10:12 PM [facility] Base Excess Venous 2.4(H) -2.0 - 2.0 mmol/L 05/17/2023 10:12 PM [facility] Oxyhemoglobin Venous 80.0 % 05/03 10:12 PM [facility] Deoxyhemoglobin (HHB) Venous % 17.1 % 05/17/2023 10:12 PM [facility] Methemoglobin <0.8 0.0 - 2.0 % 05/17/2023 10:12 PM [facility] Carboxyhemoglobin 2.9(H) 0.0 - 2.0 % 2022 10:12 PM CDT [facility] O2 Content Venous 10.3 Interpret within clinical context ml/dL 05/17/2023 10:12 PM CDT [facility] Hemoglobin by COOX 9.1(L) 12.0 - 15.6 g/dL 05/17/2023 10:12 PM CDT [facility] O2 Saturation Venous 82 >=70 % 05/03 10:12 PM CDT [facility] FI O2 Mixed Venous 21.0 % 2022 10:12 PM CDT [facility] Blood BLOOD SPECIMEN / Unknown Venipuncture / Unknown 05/17/2023 10:06 PM CDT 05/17/2023 10:11 PM CDT Narrative [facility] - 05/17/2023 10:12 PM CDT Carboxyhemoglobin Normal Concentration: Non-smokers: 0-2%; Smokers: 0-9%; Toxic: >20% Alfonso Jasmine MD LAB - BLOOD GASES O RDERABLES [address] [address], [place] [phone] * TROPONIN-I HIGH SENSITIVE BASELINE + 1HR (05/17/2023 9:51 PM CDT) [facility] Troponin I High Sensitive <3 <=14 ng/L 05/17/2023 10:27 PM CDT [facility] Blood BLOOD SPECIMEN / Unknown Venipuncture / Unknown 05/17/2023 9:51 PM CDT 05/17/2023 10:08 PM CDT Alfonso Jasmine MD LAB - CHEMISTRY ORD ERABLES [address] [address], [place] [phone] * SARS-COV-2 (COVID-19) RAPID (05/09/2023 1:05 PM CDT) COVID-19 PCR Not detected Not detected 05/09/20 23 2:10 PM CDT [facility] Microbiology SPECIMEN FROM NASOPHARYNGEAL STRUCTURE / Unknown Collection / Unknown 05/09/2023 1:05 PM CDT 05/09/2023 1:25 PM CDT Narrative [facility] - 05/09/2023 2:10 PM CDT The [employer] Xpert Xpress SARS-COV-2 has been authorized by [...] Vargas MD LAB - MICROBIOLOG Y ORDERABLES Performing Organization Address City/State/[facility] Co de Phone Number [address] [address], [facility] [phone] * C DIFFICILE GDH AG + TOXIN A+B (05/03/2023 2:38 AM CDT) Pathologist [facility] C difficile GDH antigen & toxin A/B NEGATIVE NEGATIVE 05/03/2023 8:29 AM CDT [facility] Stool STOOL SPECIMEN / Unknown Collection / Unknown 05/03/2023 2:38 AM CDT 05/03/2023 3:09 AM CDT Narrative [facility] - 05/03/2023 8:29 AM CDT Negative for toxigenic C. difficile Harpreet Johnston MD LAB - MICROBIOLOGY O RDERABLES [facility] [address] [place] [address], [facility] [phone] * MRI TIBIA FIBULA RIGHT WWO CONT [...] drafted by Dante Schultz MD (vice president regulatory) I, Arthur Avery MD have personally reviewed and interpreted this examination/study. > Interpreting Provider: Arthur Avery MD on 04/29/2023 9:57 AM Narrative 04/29/2023 9:57 AM CDT PROCEDURE: MRI TIBIA FIBULA RIGHT WWO CONT [...] contrast administration. CONTRAST: GADOBUTROL 1 MMOL/ML IV SS SO:10 mL FINDINGS: Bone marrow signal is [...] drafted by Dante Schultz MD (vice president regulatory) I, Arthur Avery MD have personally reviewed [...] drafted by Dante Schultz MD (vice president regulatory) I, Arthur Avery MD have personally reviewed and interpreted this examination/study. > Interpreting Provider: Arthur Avery MD on 04/28/2023 9:35 AM Narrative 04/28/2023 9:35 AM CDT PROCEDURE: MRI ANKLE RIGHT WWO CONTRAST, MRI [...] drafted by Dante Schultz MD (vice president regulatory) I, Arthur Avery MD have personally reviewed [...] drafted by Dante Schultz MD (vice president regulatory) I, Arthur Avery MD have personally reviewed and interpreted this examination/study. > Interpreting Provider: Arthur Avery MD on 04/28/2023 9:35 AM Narrative 04/28/2023 9:35 AM CDT PROCEDURE: MRI ANKLE RIGHT WWO CONTRAST, MRI [...] drafted by Dante Schultz MD (vice president regulatory) I, Arthur Avery MD have personally reviewed and interpreted this examination/study. > Interpreting Provider: Arthur Avery MD on 04/28/2023 9:35 AM Sameer Navarro MD MR ORDERABLES * RESPIRATORY PANEL WITH SARS-COV-2 BY PCR (STL) (04/27/2023 11:48 AM CDT) Adenovirus PCR Not detected Not detected 04/27/2023 4:27 PM CDT [facility] Coronavirus 229E PCR Not detected [...] detected Not detected 04/27/2023 4:27 PM CDT [facility] Human Metapneumovirus PCR Not detected Not detected 04/27/2023 4:27 PM CDT [facility] Human Rhinovirus/Enterov irus PCR Not detected Not detected 04/27/2023 4:27 PM CDT [facility] Influenza A PCR Not detected Not detected 04/27/2023 4:27 PM CDT [facility] Influenza B PCR Not detected Not detected 04/27/2023 4:27 PM CDT [facility] Parainfluenza Virus 1 PCR Not detected Not detected 04/27/2023 4:27 PM CDT [facility] Parainfluenza Virus 2 PCR Not detected Not detected 04/27/2023 4:27 PM CDT [facility] Parainfluenza Virus 3 PCR Not detected Not detected 04/27/2023 4:27 PM CDT [facility] Parainfluenza Virus 4 PCR Not detected Not detected 04/27/2023 4:27 PM CDT [facility] Respiratory Syncytial Virus PCR Not detected Not detected 04/27/2023 4:27 PM CDT [facility] Bordetella parapertussis PCR Not detected Not detected 04/27/2023 4:27 PM CDT [facility] Bordetella pertussis PCR Not detected Not detected 04/27/2023 4:27 PM CDT [facility] Chlamydia pneumoniae PCR Not detected Not detected 04/27/2023 4:27 PM CDT [facility] Mycoplasma pneumoniae PCR Not detected Not detected 04/27/2023 4:27 PM CDT [facility] Microbiology SPECIMEN FROM NASOPHARYNGEAL STRUCTURE / Unknown Collection / Unknown 04/27/2023 11:48 AM CDT 04/27/2023 11:58 AM CDT Narrative [facility] - 04/27/2023 4:27 PM CDT This nucleic amplification assay has received FDA authorization via the [employer]. Sameer Navarro MD LAB - MICROBIOLOGY O RDERABLES [facility] [address] [place] [address], [facility] [phone] * (ABNORMAL) CK BLOOD (04/27/2023 7:29 AM CDT) CK Total 1,624(H) 30 - 200 U/L 04/27/2023 8:08 AM CDT [facility] Blood BLOOD SPECIMEN / Unknown Lab Venipuncture / Unknown 04/27/2023 7:29 AM CDT 04/27/2023 7:40 AM CDT Sameer Navarro MD LAB - CHEMISTRY DIVINA OLVERA [facility] [address] [place] [address], [place] [phone] * XR FOOT RIGHT 2VW (04/26/2023 1:47 PM CDT) Anatomical Region Laterality Modality Ankle / Foot Radiographic Nissa ging 04/26/2023 2:42 PM CDT Narrative 04/26/2023 5:41 PM CDT PROCEDURE: XR FOOT RIGHT 2VW, DATE/TIME OF EXAM: 04/26/2023 1:47 PM, LOCATION [facility] INDICATION: E11.621: Diabetic ulcer of right [...] swelling. Report dictated by Golden Kiser DO (resident programs assistant) 04/26/2023 2:42 PM. I, Xander De Guzman MD have personally reviewed and interpreted this examination/study. > Interpreting Provider: Xander De Guzman MD on 04/26/2023 5:41 PM Procedure Note Xander De Guzman MD - 04/26/2023 PROCEDURE: XR FOOT RIGHT 2VW, DATE/TIME OF EXAM: 04/26/2023 1:47 PM, LOCATION [facility] INDICATION: E11.621: Diabetic ulcer of right [...] swelling. Report dictated by Golden Kiser DO (resident programs assistant) 32:42 PM. I, Xander De Guzman MD have personally reviewed and interpreted this examination/study. > Interpreting Provider: Xander De Guzman MD on 04/26/2023 5:41 PM Sameer Navarro MD DIAGNOSTIC IMAGING O RDERABLES * PREPARE (CROSSMATCH) RBC UNIT(S), 2 Units (12/07/2022 1:17 AM VACUUM DRUM DRIER OPERATOR) Only the most recent of2 resultswithin the time period is included. Pathologist [facility] Unit Description AS1 LR PRBC [facility]OD [facility] Unit ABO A [facility] Unit Rh POS [facility] Product Number R44 [facility] B LOOD [facility] Unit Donor # [id number] [facility] Unit Status released [facility] BLOO D BANK LAB Product Code [id number] [facility] BLO OD BANK LAB Blood Type Barcode 6200 [facility] Expiration Date S BLOOD BANK LAB Unit Description AS1 LR PRBC [facility] BLOOD [facility] LAB Unit ABO A [facility] B[facility]OD [facility] Unit Rh POS [facility] Product Number R02 [facility] B LOOD BANK LAB Unit Donor # [id number] [facility] BLOOD [facility] Unit Status released [facility] BLOO D BANK LAB Product Code [id number] [facility] BLO OD BANK LAB Blood Type Barcode 6200 [facility] BLOOD [facility] LAB Expiration Date S BLOOD BANK LAB Blood Bank BLOOD SPECIMEN / Unknown 12/03/2022 2:48 AM VACUUM DRUM DRIER OPERATOR Graeme Rodgers MD LAB - BLOOD BANK O DARRELL [facility] LAB [address] [place] [address], [facility] [phone] * BACTERIAL VAGINOSIS RAPID TEST (12/06/2022 6:20 PM VACUUM DRUM DRIER OPERATOR) [facility] Bacterial Vaginosis Rapid Negative Negative 12/06/2022 7:00 PM VACUUM DRUM DRIER OPERATOR [facility] Microbiology VAGINAL SWAB / Unknown Collection / Unknown 12/06/2022 6:20 PM VACUUM DRUM DRIER OPERATOR 12/06/2022 6:31 PM VACUUM DRUM DRIER OPERATOR Leigh SIBLEY LAB - MICROBIOLOGY O RDERABLES [facility] [address] [place] [address], [facility] [phone] * PATHOLOGY TISSUE (12/05/2022 3:17 PM VACUUM DRUM DRIER OPERATOR) Only the most recent of2 resultswithin the time period is included. Case Report Surgical Pathology Report Case: [id number] Authorizing Provider: Graeme Rodgers MD Collected: 12/05/2022 03:17 PM Ordering Location: [facility] IVETH OP Received: 12/06/2022 07:49 AM Pathologist: Alix Hope MD Specimen: Amputation Leg AK, Left above the knee amputation 12/10/2022 1:45 PM [facility] Final Diagnosis Leg, left, [id number]-[id number] amputation (A): - Viable bone and soft tissue margins - No necrosis or osteomyelitis at prior amputation site - Arteries free of significant atherosclerosis 12/10/2022 1:45 PM [facility] Microscopic Description and Comment Microscopic examination substantiates the final diagnosis. 12/10/2022 1:45 PM [facility] Clinical History Patient is a 32-year-old woman with poorly controlled diabetes who initially presented with necrotizing fasciitis of left foot with amputation 12/02/2022. 12/10/2022 1:45 PM [facility] Gross Description Requisition [...] arteries are are patent and mildly calcified. Tool Room Gear Machine Operator sections are submitted as follows: A1- logistics service representative shave of soft tissue and skin from the surgical margin closest to lesion A2-bone marrow margin A3-previous bony disarticulated A4-previous soft tissue margin A5-posterior vessels A6-anterior vessels MA 12/10/2022 1:45 PM VACUUM DRUM DRIER OPERATOR [facility] Disclaimer The performance characteristics of all immunohistochemical and indirect immunofluorescence stains (if any) cited in this report were determined by the Histopathology Laboratory of [facility]. Some of these tests were developed by [...] the attending (teaching) pathologist. 12/10/2022 1:45 PM VACUUM DRUM DRIER OPERATOR [facility] Embedded Images 12/10/2022 1:45 PM [facility] Gross only SPECIMEN OBTAINED BY AMPUTATION / Unknown 12/05/2022 3:17 PM VACUUM DRUM DRIER OPERATOR 12/06/2022 7:49 AM VACUUM DRUM DRIER OPERATOR Comment:Pre-op diagnosis: Gangrene Graeme Rodgers MD LAB - PATHOLOGY/CY TOLOGY ORDERABLES [facility] [address] [phone] * ETT LINE PERFORMABLE (12/05/2022 2:36 PM VACUUM DRUM DRIER OPERATOR) Narrative Ghassan Rene MD - 12/05/2022 2:36 PM VACUUM DRUM DRIER OPERATOR Velasquez Tomas DO 12/05/2022 3:27 PM Endotracheal Tube Placement: Patient Location: OR. Intubation Event Date/Time: 12/05/2022 2:36 PM Procedure: intubation ([id number]). Procedure Section: Sedation: under general anesthesia. Indications [...] - POCT (IP) INTERFACED (12/05/2022 1:46 PM VACUUM DRUM DRIER OPERATOR) HCG Qual Urine Negative Negative 12/05/2022 1:52 PM VACUUM DRUM DRIER OPERATOR [facility] Urine URINE / Unknown 12/05/2022 1 :46 PM VACUUM DRUM DRIER OPERATOR 12/05/2022 1:52 PM VACUUM DRUM DRIER OPERATOR Rafa Patel MD LAB - POINT OF CARE ORDERABLES Performing Organization Address City/[facility]/ZIP Co de Phone Number [address] [address], [facility] [phone] * UREA NITROGEN URINE RANDOM (12/03/2022 4:59 PM VACUUM DRUM DRIER OPERATOR) Urea Nitrogen Random Urine 397 Not Established mg/dL 12/03/2022 5:59 PM VACUUM DRUM DRIER OPERATOR [facility] Urine URINE SPECIMEN OBTAINED BY CLEAN CATCH PROCEDURE / Unknown Collection / Unknown 12/03/2022 4:59 PM VACUUM DRUM DRIER OPERATOR 12/03/2022 5:14 PM VACUUM DRUM DRIER OPERATOR Graeme Rodgers MD LAB - URINE CHEMIS TRY ORDERABLES Performing Organization Address City/[facility]/ZIP Co de Phone Number [address] [address], [facility] [phone] * LYTES (NA K CL) URINE RANDOM PANEL (12/03/2022 4:59 PM VACUUM DRUM DRIER OPERATOR) Sodium Urine <20 Not Established mmol/L 12/03/2022 6:01 PM [facility] Potassium Urine 26.9 Not Established mmol/L 12/03/2022 6:01 PM [facility] Chloride Random Urine <20 Not Established mmol/L 12/03/2022 6:01 PM [facility] Urine URINE SPECIMEN OBTAINED BY CLEAN CATCH PROCEDURE / Unknown Collection / Unknown 12/03/2022 4:59 PM VACUUM DRUM DRIER OPERATOR 12/03/2022 5:14 PM VACUUM DRUM DRIER OPERATOR Himanshu Espino MD LAB - URINE CHEMISTR Y ORDERABLES [address] [address], [facility] [phone] * CREATININE URINE RANDOM (12/03/2022 4:59 PM VACUUM DRUM DRIER OPERATOR) Creatinine Urine 227 Not Established mg/dL 12/03/2022 6:01 PM [facility] Urine URINE SPECIMEN OBTAINED BY CLEAN CATCH PROCEDURE / Unknown Collection / Unknown 12/03/2022 4:59 PM VACUUM DRUM DRIER OPERATOR 12/03/2022 5:14 PM VACUUM DRUM DRIER OPERATOR Himanshu Espino MD LAB - URINE CHEMISTR Y ORDERABLES [address] [address], [facility] [phone] * (ABNORMAL) HEMOGLOBIN (12/03/2022 9:43 AM VACUUM DRUM DRIER OPERATOR) Hemoglobin 8.2(L) 12.0 - 15.6 g/dL 12/03/2022 9:58 AM [facility] Blood BLOOD SPECIMEN / Unknown Venipuncture / Unknown 12/03/2022 9:43 AM VACUUM DRUM DRIER OPERATOR 12/03/2022 9:47 AM VACUUM DRUM DRIER OPERATOR Tommie Echevarria MD LAB - HEMATOLOGY ORD ERABLES [facility] [address] [place] [address], [facility] [phone] * BLOOD TYPE VERIFICATION (12/03/2022 4:10 AM VACUUM DRUM DRIER OPERATOR) ABO Rh A POS 12/03/2022 4:4 9 AM VACUUM DRUM DRIER OPERATOR [facility] B[facility]OD [facility] LAB Blood Bank BLOOD SPECIMEN / Unknown Venipuncture / Unknown 12/03/2022 4:10 AM VACUUM DRUM DRIER OPERATOR 12/03/2022 4:18 AM VACUUM DRUM DRIER OPERATOR Gail Montero MD LAB - BLOOD BANK ORD ERABLES Performing Organization Address City/[facility]/ZIP Co de Phone Number [facility] [address] [place] [address], [place] [phone] * ETT LINE PERFORMABLE (12/02/2022 11:21 PM VACUUM DRUM DRIER OPERATOR) Narrative Bryanna Alba MD - 12/02/2022 11:21 PM VACUUM DRUM DRIER OPERATOR Bryanna Alba MD 12/02/2022 11:37 PM Endotracheal Tube Placement: Patient Location: OR. Intubation Event Date/Time: 12/02/2022 11:21 PM Procedure: intubation ([id number]). Procedure Section: Sedation: under general anesthesia. Indications [...] * (ABNORMAL) LIPID PROFILE (12/02/2022 8:33 PM VACUUM DRUM DRIER OPERATOR) Only the most recent of2 resultswithin the time period is included. Cholesterol Total 111 <200 mg/dL 12/02/2022 8:55 PM VACUUM DRUM DRIER OPERATOR [facility] HDL 8(L) >40 mg/dL 12/02/2022 8:55 PM VACUUM DRUM DRIER OPERATOR [facility] Comment: ATP III Classification of HDL Cholesterol: <40 mg/dL: Considered a major risk factor. >60 mg/dL: Considered a negative risk factor. LDL Calculated 74 <100 mg/dL 12/02/2022 8:55 PM VACUUM DRUM DRIER OPERATOR [facility] Comment: ATP III Classification of LDL Cholesterol: <100 mg/dL: Optimal 100 - 129 mg/dL: Near Optimal/Above Optimal 130 - 159 mg/dL: Borderline High 160 - 189 mg/dL: High >190 mg/dL: Very High Triglycerides 143 <150 mg/dL 12/02/2022 8:55 PM VACUUM DRUM DRIER OPERATOR [facility] Comment: ATP III Classification of Triglycerides: <150 mg/dL: Normal 150 - 199 mg/dL: Borderline High 200 - 400 mg/dL: High >500 mg/dL: Very High Blood BLOOD SPECIMEN / Unknown Venipuncture / Unknown 12/02/2022 8:33 PM VACUUM DRUM DRIER OPERATOR 12/02/2022 8:42 PM VACUUM DRUM DRIER OPERATOR Himanshu Espino MD LAB - CHEMISTRY DIVINA OLVERA [facility] Organization Address City/State/[facility] Co de Phone Number [address] [address], [facility] [phone] * LACTIC ACID BLOOD REFLEX TO REPEAT (12/02/2022 8:00 PM VACUUM DRUM DRIER OPERATOR) Lactic Acid-Stat 0.9 <=2.0 mmol/L 12/02/2022 8:59 PM VACUUM DRUM DRIER OPERATOR [facility] Blood BLOOD SPECIMEN / Unknown Venipuncture / Unknown 12/02/2022 8:00 PM VACUUM DRUM DRIER OPERATOR 12/02/2022 8:40 PM VACUUM DRUM DRIER OPERATOR Trisha Rodríguez PA-C LAB - CHEMISTRY DIVINA OLVERA [facility] [address] [place] [address], [facility] [phone] * XR FOOT LEFT 3VW OR MORE (12/02/2022 7:56 PM VACUUM DRUM DRIER OPERATOR) Anatomical Region Laterality Modality Ankle / Foot Radiographic Nissa ging 12/02/2022 7:40 PM VACUUM DRUM DRIER OPERATOR Narrative 12/03/2022 2:25 PM VACUUM DRUM DRIER OPERATOR PROCEDURE: XR FOOT LEFT 3VW OR MORE, DATE/TIME OF EXAM: 12/02/2022 6:48 PM, LOCATION [facility] INDICATION: M79.89: Swelling of left foot [...] osteomyelitis. Report dictated by Dante Schultz MD (resident programs assistant). I, Xander De Guzman MD have personally reviewed and interpreted this examination/study. > Interpreting Provider: Xander De Guzman MD on 12/03/2022 2:25 PM Procedure Note Xander De Guzman MD - 12/03/2022 PROCEDURE: XR FOOT LEFT 3VW OR MORE, DATE/TIME OF EXAM: 12/02/2022 6:48 PM, LOCATION [facility] INDICATION: M79.89: Swelling of left foot [...] osteomyelitis. Report dictated by Dante Schultz MD (resident programs assistant). Xander Kim MD have personally reviewed and interpreted this examination/study. > Interpreting Provider: Xander De Guzman MD on 12/03/2022 2:25 PM Trisha Rodríguez PA-C DIAGNOSTIC IMAGING O RDERABLES * TROPONIN I (12/02/2022 7:55 PM VACUUM DRUM DRIER OPERATOR) Troponin I 0.023 <0.032 ng/mL 12/02/2022 8:30 PM VACUUM DRUM DRIER OPERATOR [facility] Blood BLOOD SPECIMEN / Unknown Venipuncture / Unknown 12/02/2022 7:55 PM VACUUM DRUM DRIER OPERATOR 12/02/2022 8:12 PM VACUUM DRUM DRIER OPERATOR Trisha Rodríguez PA-C LAB - CHEMISTRY [facility] [address] [address], [facility] [phone] * XR CHEST 2VW (12/02/2022 7:31 PM VACUUM DRUM DRIER OPERATOR) Anatomical Region Laterality Modality Chest Radiographic Nissa ging 12/02/2022 8:42 PM VACUUM DRUM DRIER OPERATOR Impressions 12/03/2022 2:50 AM VACUUM DRUM DRIER OPERATOR IMPRESSION: 1.Cardiomegaly with suggestion of mild pulmonary edema. 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 The report was drafted by Dante Schultz MD (vice president regulatory) Peter Kim MD, PhD have personally reviewed and interpreted this examination/study. > Interpreting Provider: Peter Donnelly MD, PhD on 12/03/2022 2:50 AM Narrative 12/03/2022 2:50 AM VACUUM DRUM DRIER OPERATOR EXAM: XR CHEST 2VW DATE/TIME: 12/02/2022 7:31 PM LOCATION: [facility] HISTORY: R09.02: Hypoxia COMPARISON: None. FINDINGS: [...] CHEST 2VW DATE/TIME: 12/02/2022 7:31 PM LOCATION: [facility] HISTORY: R09.02: Hypoxia COMPARISON: None. FINDINGS: [...] drafted by Dante Schultz MD (vice president regulatory) I, Peter Donnelly MD, PhD have personally reviewed and interpreted this examination/study. > Interpreting Provider: Peter Donnelly MD, PhD on 12/03/2022 2:50 AM Trisha Rodríguez PA-C DIAGNOSTIC IMAGING O RDERABLES * CT CHEST WO CONTRAST (08/25/2022 8:12 AM CDT) Anatomical Region Laterality Modality Chest Computed Tomogra phy 08/25/2022 4:00 PM CDT Impressions 08/25/2022 4:13 PM CDT IMPRESSION: 1. Pleural effusions and bilateral lung opacities. The symmetric effusions favor a cardiogenic cause. However the lung opacities are not typical for vascular congestion and could be inflammatory/pneumonic in origin. It is also possible there may be pneumonia concurrent with heart failure. 2. Mild central adenopathy is most likely reactive. > Interpreting Provider: Adalgisa Schroeder MD on 08/25/2022 4:13 PM Narrative 08/25/2022 4:13 PM CDT PROCEDURE: CT CHEST WO CONTRAST, DATE/TIME OF EXAM: 08/25/2022 8:13 AM, LOCATION [facility] INDICATION: I50.9: Heart failure, unspecified (CMS/HCC) ADDITIONAL [...] portions of the lungs. Many of these opacities are centered around the bronchi and vasculature and overall are greater on the right. There is no septal thickening as is frequently seen with interstitial edema. The heart size is normal but there is small pericardial effusion. There are a few calcified plaques in the coronary arteries. The thoracic aorta is normal in size. Central mediastinal nodes are mildly enlarged up to 1.3 cm and most likely reactive. There is no axillary adenopathy. The visualized thyroid is normal. The visualized portions of the liver and spleen are unremarkable. There is third spacing of fluids in the subcutaneous tissues of the chest and upper abdomen. No significant bony findings. Procedure Note Adalgisa Schroeder MD - 08/25/2022 PROCEDURE: CT CHEST WO CONTRAST, DATE/TIME OF EXAM: 08/25/2022 8:13AM, LOCATION [facility] INDICATION: I50.9: Heart failure, unspecified (CMS/HCC) ADDITIONAL [...] Note Himanshu Martin MD - 08/21/2022 [place] [address] Echocardiography Examination Transthoracic Name: LEEROY CANALES [facility]#: MR#: [id number] Admission Number: [id number] Study Date: 08/21/2022 Study Time: 04:00 PM Date Of : 1990 Age: 31 years Height: 67 in. (170.2 cm) Weight: 283 lbs. (128.37 kg) BSA: 2.34 m2 Gender: Female Blood Pressure: 147 mmHg / 86 mmHg Heart Rate: Exam Details Procedure Ordered: ECHOCARDIOGRAM 2D W/DOPPLER Procedure Components: Complete 2D, M-mode, complete spectral Doppler, color Doppler Procedure Status: STAT study Facility Location: [facility] Indication: Intentional Overdose Procedure Parcel Post Carrier: Riley ConcepcionDerbes Ordering Provider: GIGI GUTHRIE Reading Physician: Himanshu Martin MD Conclusions Left Ventricle: Left ventricle is normal in size. Normal global systolic left ventricular function. EF 60 %. Left ventricle wall thickness is mildly increased. There are no regional wall motion abnormalities. Left ventricular diastolic function parameters are normal. Mitral Valve: Mild mitral regurgitation. Tricuspid Valve Measurements RVSP: 36 mmHg. Follow up: Patient: LEEROY [...] Valve FARIBA D (continuity eq. VTI) 2.5 cm Aortic Valve FARIBA Index (continuity 1.28 cm /m eq.Vmax) Aortic Valve LVOT Vmax / AV Vmax 0.97 Interventricular septum IVSd, 2D 1.3 cm (0.6cm - 1.1cm) Left Atrium LADs, 2D 4.1 cm (2.7cm - 3.8cm) Left Atrium LA Area s, A4C 21.6 cm (0cm - 20cm ) Left Atrium LA Area s, A2C 16.6 cm (0cm - 20cm ) Left Atrium LAESV, MOD4 61 ml (22ml - 52ml) Patient: LEEROY CANALES Study Date: 08/21/2022 04:00 PM Page 2 of 4 Left Atrium LAESV, MOD2 45 ml (22ml - 52ml) Left Atrium LAESV index, MOD4 26.1 ml/m Left Atrium LAESV index, MOD2 19.2 ml/m Left Atrium LAESV index, AL4 27.8 ml/m Left Atrium LAESV index, AL2 19.7 ml/m Left Ventricle LVOT Vmax 1.38 m/s (0.7m/s [...] 49ml) Left Ventricle LVEDV Index, BP 38 ml/m (35ml/m - 75ml/m ) Left Ventricle LVESV Index, BP 16.2 ml/m (12ml/m - 30ml/m ) Left Ventricle LVOT PGmean 4 mmHg Left [...] Mitral Valve MVA D (continuity eq.) 2.6 cm Mitral Valve MV PGmax 9 mmHg Mitral Valve MV PGmean 3 mmHg Mitral Valve MVA PHT 6.3 cm Mitral Valve MV PHT 35 ms Mitral Valve MV Dec [place] 9.78 m/s Pulmonic Valve PV PGmax 3 mmHg Pulmonic [...] of 4 Gigi Guthrie MD ECHO ORDERABLES Performing Organization Address City/State/[facility] Co de Phone Number [facility] [address] [place] [address] * PROLACTIN (04/24/2010 11:03 AM CDT) Prolactin 6.8 SEE BELOW ng/ml [facility] Comment: See Interpretation For Normals Interpretation Prolactin [facility] Comment: Prolactin Normal Ranges ng/ml FEMALES Non- ............ 2.8 - 29.2 ................ 9.7 - 208.5 Postmenopausal .......... 1.8 - 20.3 MALES ..................... 2.1 - 17.7 BLOOD SPECIMEN / Unknown 04/24/2010 11:03 AM CDT 04/24/2010 11:16 AM CDT Narrative Resulting Agency Comment Performed By [facility] [address] [place] [address] Jimmy Pisano MD LAB - CHEMISTRY [facility] Performing Organization Address [facility] Co de Phone Number [facility] * TSH (04/24/2010 11:03 AM CDT) TSH 3.289 0.490 - 4.670 mcIU/mL [facility] BLOOD SPECIMEN / Unknown 04/24/2010 11:03 AM CDT 04/24/2010 11:16 AM CDT Jimmy Pisano MD LAB - CHEMISTRY [facility] Performing Organization Address [facility] Co de Phone Number [facility] * HCG BLOOD QUALITATIVE (04/24/2010 11:03 AM CDT) HCG Qual Serum Negative [facility] BLOOD SPECIMEN / Unknown 04/24/2010 11:03 AM CDT 04/24/2010 11:16 AM CDT Jimmy Pisano MD LAB - CHEMISTRY [facility] Performing Organization Address [facility] Co de Phone Number [facility] * (ABNORMAL) HEMOGLOBIN A1C - POINT OF CARE (IP) (04/24/2010 9:52 AM CDT) Hemoglobin A1c POCT 7.3(A) 3.4 - 6.1 % [facility] POCT TESTING QC Verified yes Yes [facility] PO CT TESTING Blood specimen (specimen) BLOOD SPECIMEN / Unknown 04/24/2010 9:52 AM CDT Beatriz Bear CLAIMS SUPERVISOR-WORKFORCE MANAGEMENT CONSULTANT LAB - POINT OF C ARE ORDERABLES Performing Organization Address City/[facility]/ZIP Co de Phone Number [facility] POCT TESTING [address] [place] [address] * (ABNORMAL) CREATININE BLOOD (04/24/2010 9:40 AM CDT) Creatinine 1.15(H) 0.50 - 1.06 mg/dl [facility] BLOOD SPECIMEN / Unknown 04/24/2010 9:40 AM CDT 04/24/2010 9:54 AM CDT Beatriz Bear CLAIMS SUPERVISOR-WORKFORCE MANAGEMENT CONSULTANT LAB - CHEMISTRY ORDERABLES [facility] Care Teams Coding Analyst Relationship Specialty Start Date End Date Cherise Patrick PA-C [address] [place] [id number] PCP - General 02/23/24
--- OUTSIDE RECORDS SUMMARY | 2025-01-13 21:19 | XMS_ITS | Encounter Summary ---
Author Organization [facility] Address [address] [place] [address] Care Team Providers Care Cloth Baler Name Role Phone None, Provider Primary Care Provider Anniea ble Encounter Details Date Type Department Care Team (Late st Contact Info) Description 01/22/2023 Telephone [facility] Physical Therapy [address] [place] [id number] Penny Gould, PT [address] [place] [address] Social History Tobacco Use Types Packs/Day Years [...] Krishnamurthy RN Active documented in this encounter Plan [...] documented as of this encounter Care Teams Cloth Baler Relationship Specialty Start Date End Date None, Provider, PCP - General 07/29/22 documented as of this encounter
--- OUTSIDE RECORDS SUMMARY | 2025-01-13 21:19 | XMS_ITS | Data Portability ---
Author Organization [facility] [place] [facility] Address [address] [place] [address] Assessment Encounter Date Assessment Date Assessment LastModified by Organization Details LastModified Time 02/14/2023 02/14/2023 Sections of the HPI, exam and assessment completed by MAURICIO Vidal student and have been reviewed by me. I agree with the exam findings, assessment and plan except where specifically documented or amended. -Cherise Patrick, [facility], PAJose EnriqueC [email or web address] Not available 02/14/2023 15:04:33 09/08/2024 09/08/2024 Advised pt to f/u in 1 mo. [email or web address] Not available 09/09/2024 10:18:52 Plan of Treatment Reminders Order Date Submit Date Provider Last Modified By Organization Details Last Modified Time Details Appointments ANY 15 2024 03:30P M MAURICIO OSWALD Not available Not available Not available Lab HbA1c (hemoglob in A1c), blood 2024 025 RIGOBERTO [facility], [address], [place], [address], 12/10/2024 11:17:10 ESR (erythroc yte sedimenta tion rate), blood 2024 025 RIGOBERTO [facility], [address], [place], [address], 12/10/2024 11:17:11 test, urine 2023 024 [email or web address] In-Office Order, Internal Use Only DO Not Attach Compendium DO Not Attach Compendium, Do Not Delete/merge, [id number] 09/08/2024 17:28:33 microalbu min/creat inine, mass ratio, urine 2023 024 [facility], [address], [place], [address], 09/10/2024 12:29:42 pro BNP (pro B-type natriuret ic peptide), serum or plasma 2022 023 [facility], [address], [place], [address], 03/21/2023 16:14:02 CMP, serum or plasma 2022 023 [facility], [address], [place], [address], 03/21/2023 16:14:05 lipid panel, serum 2022 023 [facility], [address], [place], [address], 03/21/2023 16:14:04 CBC w/ auto diff 2022 023 [facility], [address], [place], [address], 03/21/2023 16:14:08 TSH + free T4, serum 2022 023 [facility], [address], [place], [address], 03/21/2023 16:14:03 CK (creatine kinase), total, serum 2022 023 [facility], [address], [place], [address], 03/21/2023 16:14:07 CMP, serum or plasma 2022 023 [facility], [address], [place], [address], 02/14/2023 13:01:01 lipid panel, serum 2022 023 [facility], [address], [place], [address], 02/14/2023 13:01:00 TSH + free T4, serum 2022 023 [facility], [address], [place], [address], 02/14/2023 13:01:01 iron + total iron-bind ing capacity (TIBC), serum 2022 023 [facility], [address], [place], [address], 02/14/2023 13:01:00 ferritin, serum or plasma 2022 023 [facility], [address], [place], [address], 02/14/2023 13:01:00 CBC w/ auto diff 2022 023 [facility], [address], [place], [address], 02/14/2023 13:01:00 Referral wound care referral 2024 025 [facility], [address], [place], [address], 01/12/2025 08:57:13 gait training referral [address] (Outpatient Physical Therapy), [address], [place], [address], 12/21/2024 08:28:52 cardiolog ist referral 11/07/ 2024 11/07/2 024 [email or web address] Mateo Ortiz MD, [address] , [facility] [address], [place], [address], 09/23/2024 08:21:20 ophthalmo logist referral [email or web address] [facility] [place], [address] [facility], [facility], [place], [address], 09/22/2024 08:07:09 home health referral 2022 023 [facility], [address] [facility], [facility] [address], [place], [address], 06/09/2023 12:01:50 wound care referral - h/o uncontrol led type 2 diabetes 2022 023 [facility], [address] [facility], [place], [address], 04/11/2023 09:30:31 Procedures None recorded. Surgeries None recorded. Imaging None recorded. Medication Orders carvedilo l 25 mg tablet 2024 025 [facility], [address] [place], [address], 12/06/2024 18:41:40 Trulicity 0.75 mg/0.5 mL subcutane ous pen injector 2024 025 [facility], [address] [place], [address], 12/06/2024 18:41:39 tramadol 50 mg tablet 2024 025 [facility], [address] [place], [address], 12/06/2024 16:19:51 Eliquis 5 mg tablet 2023 024 [facility], [address] [place], [address], 09/08/2024 17:27:56 Senexon-S 8.6 mg-50 mg tablet 2023 [facility], [address] [place] [address], [address], 09/08/2024 17:12:34 furosemid e 40 mg tablet 2023 [facility], [address] [place] [address], [address], 09/08/2024 17:12:40 carvedilo l 25 mg tablet 2023 [facility], [address] [place] [address], [address], 09/08/2024 17:12:33 gabapenti n 300 mg capsule 2023 [facility], [address] [place] [address], [address], 09/08/2024 17:12:36 Slynd 4 mg (28) tablet 2023 [facility], [address] [place] [address], [address], 09/09/2024 10:14:30 Trulicity 0.75 mg/0.5 mL subcutane ous pen injector 2023 [facility], [address] [place] [address], [address], 09/09/2024 10:14:34 amlodipin e 10 mg tablet 2023 [facility], [address] [place] [address], [address], 09/08/2024 17:12:32 lisinopri l 20 mg tablet 2023 024 [facility] [address], [address] [place] [address], [address], 09/08/2024 17:12:29 methocarb chava 500 mg tablet 2023 024 [facility], [address] [place] [address], [address], 09/08/2024 17:12:31 tramadol 50 mg tablet 2023 024 [facility], [address] [place] [address], [address], 09/09/2024 10:12:20 Trulicity 0.75 mg/0.5 mL subcutane ous pen injector 2022 023 [facility] [address], [address] [place] [address], [address], 09/08/2024 12:08:56 OneTouch Verio test strips 2022 023 [facility] [address], [address] [place] [address], [address], 09/08/2024 12:09:17 metformin 500 mg tablet 2022 023 [facility] [address], [address] [place] [address], [address], 09/08/2024 12:09:28 Patient TargetsNo targets recorded. Patient InstructionsNo instructions recorded. Reason for Referral h/o uncontrolled type 2 diab etes Referring Physician: [facility], Encounter Date: 02/14/2023 Home Health Referral for Amp utated left lower limb below knee Referring Physician: [facility], Encounter Date: 03/20/2023 Cable Tool Operator Referral for Bilateral cataracts Referring Physician: [facility], Encounter Date: 09/08/2024 Coding Quality Analyst Referral for He art failure with normal ejection fraction Referring Physician: Cherise Patrick, [facility], Encounter Date: 09/08/2024 Gait Training Referral for A mputated right lower limb below knee Referring Physician: Natalee Jennings, [facility], Encounter Date: 12/06/2024 Referring Physician: Natalee garza [facility], Encounter Date: 12/06/2024 Results Created Date Observation Date Name Description Value Unit Range Abnormal Flag Note LastModifiedBy Organization Detail LastModifiedTime 01/31/2001/30/2023 HbA1c (hemo globi n A1c), blood HbA1c 5.6 Not Available In-Office Order Internal Use Only DO Not Attach Compendium DO Not Attach Compendium, Do Not Delete/merge, [id number] 01/30/2023 12:02:12 03/20/20 23 03/21/2023 NT-UT OBNP nt-probnp 2423 pg/mL 0-130 above high normal The emiliao wing cut-p oints have been sugge sted [...] enden t 300 pg/mL Not Available [facility] ([facility]) [address] [place], [address], 03/21/2023 16:14:02 03/20/20 23 03/21/2023 TSH+F REE T4 TSH 10.100 uIU/m L 0.450- 4.500 above high normal Not Available [facility] ([facility]) [address] [place], [address], 03/21/2023 16:14:03 03/20/20 23 03/21/2023 TSH+F REE T4 T4,free(dire ct) 1.04 NG/dL 0.82-1 .77 Not Available [facility] ([facility]) [address] [place], [address], 03/21/2023 16:14:03 03/20/20 23 03/21/2023 LIPID PANEL WITH LDL/H DL RATIO cholesterol, total 164 mg/dL 100-19 9 Not Available [facility] ([facility]) [address] [place], [address], 03/21/2023 16:14:04 03/20/20 23 03/21/2023 LIPID PANEL WITH LDL/H DL RATIO triglyceride s 56 mg/dL 0-149 Not Available [facility] ([facility]) [address] [place], [address], 03/21/2023 16:14:04 03/20/20 23 03/21/2023 LIPID PANEL WITH LDL/H DL RATIO HDL cholesterol 76 mg/dL >39 Not Available [facility]) [address] [place], [address], 03/21/2023 16:14:04 03/20/20 23 03/21/2023 LIPID PANEL WITH LDL/H DL RATIO VLDL cholesterol aly 11 mg/dL 5-40 Not Available [facility] ([facility]) [address] [place], [address], 03/21/2023 16:14:04 03/20/20 23 03/21/2023 LIPID PANEL WITH LDL/H DL RATIO LDL chol calc ([facility]) 77 mg/dL 0-99 Not Available [facility] ([facility]) [address] [place], [address], 03/21/2023 16:14:04 03/20/20 23 03/21/2023 LIPID PANEL WITH LDL/H DL RATIO LDL/HDL ratio 1.0 ratio 0.0-3. 2 LDL/H DL Ratio Men Women 1/2 Avg.R isk 1.0 1.5 Avg.R isk 3.6 3.2 2X Avg.R isk 6.2 5.0 3X Avg.R isk 8.0 6.1 Not Available [facility] ([facility]) [address] [place], [address], 03/21/2023 16:14:04 03/20/20 23 03/21/2023 COMP. METAB OLIC PANEL (14) glucose 110 mg/dL 70-99 above high normal Not Available [facility] ([facility]) [address] [place], [address], 03/21/2023 16:14:05 03/20/20 23 03/21/2023 COMP. METAB OLIC PANEL (14) BUN 11 mg/dL 6-20 Not Available [facility] ([facility]) [address] [place], [address], 03/21/2023 16:14:05 03/20/20 23 03/21/2023 COMP. METAB OLIC PANEL (14) creatinine 1.37 mg/dL 0.57-1 .00 above high normal Not Available [facility] ([facility]) [address] [place], [address], 03/21/2023 16:14:05 03/20/20 23 03/21/2023 COMP. METAB OLIC PANEL (14) eGFR 53 mL/mi n/1.7 3 >59 below low normal Not Available [facility] ([facility]) [address] [place], [address], 03/21/2023 16:14:05 03/20/20 23 03/21/2023 COMP. METAB OLIC PANEL (14) BUN/creatini ne ratio 8 9-23 below low normal Not Available [facility] ([facility]) [address] [place], [address], 03/21/2023 16:14:05 03/20/20 23 03/21/2023 COMP. METAB OLIC PANEL (14) sodium 142 mmol/ L 134-14 4 Not Available [facility] ([facility]) [address] [place], [address], 03/21/2023 16:14:05 03/20/20 23 03/21/2023 COMP. METAB OLIC PANEL (14) potassium 3.6 mmol/ L 3.5-5. 2 Not Available [facility] ([facility]) [address] [place], [address], 03/21/2023 16:14:05 03/20/20 23 03/21/2023 COMP. METAB OLIC PANEL (14) chloride 108 mmol/ L 96-106 above high normal Not Available [facility] ([facility]) [address] [place], [address], 03/21/2023 16:14:05 03/20/20 23 03/21/2023 COMP. METAB OLIC PANEL (14) carbon dioxide, total 23 mmol/ L 20-29 Not Available [facility] ([facility]) [address] [place], [address], 03/21/2023 16:14:05 03/20/20 23 03/21/2023 COMP. METAB OLIC PANEL (14) calcium 8.0 mg/dL 8.7-10 .2 below low normal Not Available [facility] ([facility]) [address] [place], [address], 03/21/2023 16:14:05 03/20/20 23 03/21/2023 COMP. METAB OLIC PANEL (14) protein, total 5.6 g/dL 6.0-8. 5 below low normal Not Available [facility] ([facility] [address] [facility] [place], [address], 03/21/2023 16:14:05 03/20/20 23 03/21/2023 COMP. METAB OLIC PANEL (14) albumin 2.2 g/dL 3.9-5. 0 below low normal Not Available [facility] ([facility]) [address], [place], [address], 03/21/2023 16:14:05 03/20/20 23 03/21/2023 COMP. METAB OLIC PANEL (14) globulin, total 3.4 g/dL 1.5-4. 5 Not Available [facility] ([facility]) [address] [place], [address], 03/21/2023 16:14:05 03/20/20 23 03/21/2023 COMP. METAB OLIC PANEL (14) A/G ratio 0.6 1.2-2. 2 below low normal Not Available [facility] ([facility]) [address] [place], [address], 03/21/2023 16:14:05 03/20/20 23 03/21/2023 COMP. METAB OLIC PANEL (14) bilirubin, total 0.2 mg/dL 0.0-1. 2 Not Available [facility] ([facility]) [address] [place], [address], 03/21/2023 16:14:05 03/20/20 23 03/21/2023 COMP. METAB OLIC PANEL (14) alkaline phosphatase 409 IU/L 44-121 above high normal Not Available [facility] ([facility]) [address] [place], [address], 03/21/2023 16:14:05 03/20/20 23 03/21/2023 COMP. METAB OLIC PANEL (14) AST (SGOT) 32 IU/L 0-40 Not Available [facility] ([facility]) [address] [place], [address], 03/21/2023 16:14:05 03/20/20 23 03/21/2023 COMP. METAB OLIC PANEL (14) ALT (SGPT) 32 IU/L 0-32 Not Available [facility] ([facility]) [address] [facility] [place], [address], 03/21/2023 16:14:05 03/20/20 23 03/21/2023 CK creatine kinase,total 443 U/L 32-182 above high normal Not Available [facility] ([facility]) [address] [facility] [place], [address], 03/21/2023 16:14:07 03/20/20 23 03/21/2023 CBC WITH DIFFE RENTI AL/PL ATELE T WBC 6.0 x10e3 /uL 3.4-10 .8 Not Available [facility] ([facility]) [address] [facility] [place], [address], 03/21/2023 16:14:08 03/20/20 23 03/21/2023 CBC WITH DIFFE RENTI AL/PL ATELE T RBC 3.69 x10e6 /uL 3.77-5 .28 below low normal Not Available [facility] ([facility]) [address] [facility] [place], [address], 03/21/2023 16:14:08 03/20/20 23 03/21/2023 CBC WITH DIFFE RENTI AL/PL ATELE T hemoglobin 9.8 g/dL 11.1-1 5.9 below low normal Not Available [facility] ([facility]) [address] [facility] [place], [address], 03/21/2023 16:14:08 03/20/20 23 03/21/2023 CBC WITH DIFFE RENTI AL/PL ATELE T hematocrit 31.7 % 34.0-4 6.6 below low normal Not Available [facility] ([facility]) [address] [facility] [place], [address], 03/21/2023 16:14:08 03/20/20 23 03/21/2023 CBC WITH DIFFE RENTI AL/PL ATELE T MCV 86 fL 79-97 Not Available [facility] ([facility]) [address] [place], [address], 03/21/2023 16:14:08 03/20/20 23 03/21/2023 CBC WITH DIFFE RENTI AL/PL ATELE T MCH 26.6 pg 26.6-3 3.0 Not Available [facility] ([facility]) [address] [place], [address], 03/21/2023 16:14:08 03/20/20 23 03/21/2023 CBC WITH DIFFE RENTI AL/PL ATELE T MCHC 30.9 g/dL 31.5-3 5.7 below low normal Not Available [facility] ([facility]) [address] [place], [address], 03/21/2023 16:14:08 03/20/20 23 03/21/2023 CBC WITH DIFFE RENTI AL/PL ATELE T RDW 15.5 % 11.7-1 5.4 above high normal Not Available [facility] ([facility]) [address] [place], [address], 03/21/2023 16:14:08 03/20/20 23 03/21/2023 CBC WITH DIFFE RENTI AL/PL ATELE T platelets 505 x10e3 /uL 150-45 0 above high normal Not Available [facility] ([facility]) [address] [place], [address], 03/21/2023 16:14:08 03/20/20 23 03/21/2023 CBC WITH DIFFE RENTI AL/PL ATELE T neutrophils 67 % notest ab. Not Available [facility] ([facility]) [address] [place], [address], 03/21/2023 16:14:08 03/20/20 23 03/21/2023 CBC WITH DIFFE RENTI AL/PL ATELE T lymphs 21 % notest ab. Not Available [facility] ([facility]) [address] [facility], [place], [address], 03/21/2023 16:14:08 03/20/20 23 03/21/2023 CBC WITH DIFFE RENTI AL/PL ATELE T monocytes 7 % notest ab. Not Available [facility] ([facility]) [address] [facility], [place], [address], 03/21/2023 16:14:08 03/20/20 23 03/21/2023 CBC WITH DIFFE RENTI AL/PL ATELE T eos 5 % notest ab. Not Available [facility] ([facility]) [address] [facility], [place], [address], 03/21/2023 16:14:08 03/20/20 23 03/21/2023 CBC WITH DIFFE RENTI AL/PL ATELE T basos 0 % notest ab. Not Available [facility] ([facility]) [address] [facility], [place], [address], 03/21/2023 16:14:08 03/20/20 23 03/21/2023 CBC WITH DIFFE RENTI AL/PL ATELE T neutrophils (absolute) 4.0 x10e3 /uL 1.4-7. 0 Not Available [facility] ([facility]) [address] [facility], [place], [address], 03/21/2023 16:14:08 03/20/20 23 03/21/2023 CBC WITH DIFFE RENTI AL/PL ATELE T lymphs (absolute) 1.3 x10e3 /uL 0.7-3. 1 Not Available [facility] ([facility]) [address] [facility], [place], [address], 03/21/2023 16:14:08 03/20/20 23 03/21/2023 CBC WITH DIFFE RENTI AL/PL ATELE T monocytes(ab solute) 0.4 x10e3 /uL 0.1-0. 9 Not Available [facility] ([facility]) [address] [place], [address], 03/21/2023 16:14:08 03/20/20 23 03/21/2023 CBC WITH DIFFE RENTI AL/PL ATELE T eos (absolute) 0.3 x10e3 /uL 0.0-0. 4 Not Available [facility] ([facility]) [address] [place], [address], 03/21/2023 16:14:08 03/20/20 23 03/21/2023 CBC WITH DIFFE RENTI AL/PL ATELE T baso (absolute) 0.0 x10e3 /uL 0.0-0. 2 Not Available [facility] ([facility]) [address] [place], [address], 03/21/2023 16:14:08 03/20/20 23 03/21/2023 CBC WITH DIFFE RENTI AL/PL ATELE T immature granulocytes 0 % notest ab. Not Available [facility] ([facility]) [address] [place], [address], 03/21/2023 16:14:08 03/20/20 23 03/21/2023 CBC WITH DIFFE RENTI AL/PL ATELE T immature grans (abs) 0.0 x10e3 /uL 0.0-0. 1 Not Available [facility] ([facility]) [address] [place], [address], 03/21/2023 16:14:08 03/20/20 23 03/21/2023 CREAT INE KINAS E (CK), MB creatine kinase (CK), mb 3.4 NG/mL 0.0-5. 3 Not Available [facility] ([facility]) [address] [place], [address], 03/21/2023 16:14:01 02/24/20 24 02/24/2024 HIV 1+2 Ab+HI V1 p24 Ag [Pres ence] in Serum or Plasm a by Immun oassa y HIV 1+2 Ab+HIV1 P24 Ag [presence] in serum or plasma by immunoassay Non-re active text: non-re active HIV Antig en/An tibod y 1 & 2 Non-r eacti ve Non-r eacti ve 02/23 10:03 AM CDT [facility] PK Not Available Not Available 12/16/2024 13:27:04 02/24/20 24 02/24/2024 HIV 1+2 Ab+HI V1 p24 Ag [Pres ence] in Serum or Plasm a by Immun oassa y interpretati on and review of laboratory results Normal Not Available Not Available 12/04 13:27:04 08/28/20 24 08/29/2024 Hemog lobin A1c/H emogl obin. total in Blood hemoglobin A1C/hemoglob in.total in blood 7.4 % high: 5.6% high Hemog lobin A1c 7.4 (H) <=5.6 % 08/29 8:36 AM CDT [facility] PK Not Available Not Available 12/16/2024 13:27:04 08/28/20 24 08/29/2024 Hemog lobin A1c/H emogl obin. total in Blood glucose mean value [mass/volume ] in blood estimated from glycated hemoglobin 166 mg/dL Estim ated [place] ge Gluco se 166 mg/dL 08/29 8:36 AM T [facility] PK Not Available Not Available 12/16/2024 13:27:04 08/28/20 24 08/29/2024 Hemog lobin A1c/H emogl obin. total in Blood interpretati on and review of laboratory results Abnorm al Not Available Not Available 13:27:04 09/08/20 24 09/10/2024 ALBUM IN/CR EAT RATIO , RANDO M UR creatinine, urine 48.8 mg/dL notest ab. Not Available [facility] ([facility]) [address] [facility], [place], [address], 09/10/2024 12:29:42 09/08/20 24 09/10/2024 ALBUM IN/CR EAT RATIO , TIMOTHY Hernandez UR albumin, urine 4317.3 ug/mL notest ab. Resul ts confi rmed on dilut ion. Not Available [facility] ([facility]) [address] [facility], [place], [address], 09/10/2024 12:29:42 09/08/20 24 09/10/2024 ALBUM IN/CR EAT RATIO , TIMOTHY Hernandez UR alb/creat ratio 8847 mg/g_ creat 0-29 above high normal Mally l: 0 - 29 Moder ately incre ased: 30 - 300 Sever lou incre ased: >300 Not Available [facility] ([facility]) [address] [facility], [place], [address], 09/10/2024 12:29:42 09/08/20 24 09/10/2024 PREGN AMY TEST, URINE test, urine Negati ve negati ve Not Available [facility] ([facility]) [address] [facility], [place], [address], 09/10/2024 12:29:43 09/08/20 24 09/08/2024 pregn amy test, urine HCG negati ve Not Available In-Office Order Internal Use Only DO Not Attach Compendium DO Not Attach Compendium, Do Not Delete/merge, [id number] 09/08/2024 17:28:22 11/22/19 25 11/22/2024 C react talia prote in [Mass /volu me] in Serum or Plasm a C reactive protein [mass/volume ] in serum or plasma 1.4 mg/dL high: 0.5mg/ dL high C-Parvin ctive Prote in 1.4 (H) <=0.5 mg/dL 11/22 4:22 PM DIRECTOR OF LOSS PREVENTION [facility] PK Not Available Not Available 12/16/2024 13:27:04 11/22/19 25 11/22/2024 C react talia prote in [Mass /volu me] in Serum or Plasm a interpretati on and review of laboratory results Abnorm al Not Available Not Available 13:27:04 11/22/19 25 11/22/2024 Eryth rocyt e sedim entat ion rate by Westeduardo rgren metho d erythrocyte sedimentatio n rate by westergren method 46 text: 0 - 20 mm/HR high Eryth rocyt e Sedim entat ion Rate Favio lynn 46 (H) 0 - 20 MM/HR 11/22 4:12 PM DIRECTOR OF LOSS PREVENTION [facility] PK Not Available Not Available 12/16/2024 13:27:04 11/22/19 25 11/22/2024 Eryth rocyt e sedim entat ion rate by Favio rgren metho d interpretati on and review of laboratory results Abnorm al Not Available Not Available 13:27:04 11/22/19 25 11/22/2024 CBC W Auto Diffe renti al panel - Blood leukocytes [#/volume] in blood by automated count 13.6 text: 4.0 - 10.7 x10e9/ L high WBC 13.6 (H) 4.0 - 10.7 x10E9 /L 11/22 4:03 PM DIRECTOR OF LOSS PREVENTION [facility] PK Not Available Not Available 12/16/2024 13:27:03 11/22/19 25 11/22/2024 CBC W Auto Diffe renti al panel - Blood erythrocytes [#/volume] in blood by automated count 4.45 text: 3.90 - 5.20 x10e12 /L RBC Count 4.45 3.90 - 5.20 x10E1 2/L 11/22 4:03 PM DIRECTOR OF LOSS PREVENTION [facility] PK Not Available Not Available 12/16/2024 13:27:03 11/22/19 25 11/22/2024 CBC W Auto Diffe renti al panel - Blood hemoglobin [mass/volume ] in blood 13.1 g/dL low: 11.9g/ dLhigh : 15.8g/ dL Hemog lobin 13.1 11.9 - 15.8 g/dL 11/22 4:03 PM [facility] PK Not Available Not Available 12/16/2024 13:27:03 11/22/19 25 11/22/2024 CBC W Auto Diffe renti al panel - Blood hematocrit [volume fraction] of blood by automated count 41.5 % low: 34.8%h igh: 46.1% Hemat ocrit 41.5 34.8 - 46.1 % 11/22 4:03 PM [facility] PK Not Available Not Available 12/16/2024 13:27:03 11/22/19 25 11/22/2024 CBC W Auto Diffe renti al panel - Blood MCV [entitic volume] by automated count 93.3 fL low: 80fLhi gh: 98fL MCV 93.3 80.0 - 98.0 fL 11/22 4:03 PM [facility] PK Not Available Not Available 12/16/2024 13:27:03 11/22/19 25 11/22/2024 CBC W Auto Diffe hanhti al panel - Blood MCH [entitic mass] by automated count 29.4 pg low: 26.7pg high: 33.6pg MCH 29.4 26.7 - 33.6 pg 11/22 4:03 PM [facility] PK Not Available Not Available 12/16/2024 13:27:03 11/22/19 25 11/22/2024 CBC W Auto Diffe renti al panel - Blood MCHC [mass/volume ] by automated count 31.6 g/dL low: 31.7g/ dLhigh : 36.3g/ dL low MCHC 31.6 (L) 31.7 - 36.3 g/dL 11/22 4:03 PM [facility] PK Not Available Not Available 12/16/2024 13:27:03 11/22/19 25 11/22/2024 CBC W Auto Diffe renti al panel - Blood erythrocyte distribution width [ratio] by automated count 13.2 % low: 11.3%h igh: 14.8% RDW-C V 13.2 11.3 - 14.8 % 11/22 4:03 PM [facility] PK Not Available Not Available 12/16/2024 13:27:03 11/22/19 25 11/22/2024 CBC W Auto Diffe renti al panel - Blood platelets [#/volume] in blood by automated count 376 text: 150 - 420 x10e9/ L Plate let Count 376 150 - 420 x10E9 /L 11/22 4:03 PM [facility] PK Not Available Not Available 12/16/2024 13:27:03 11/22/19 25 11/22/2024 CBC W Auto Diffe renti al panel - Blood platelet mean volume [entitic volume] in blood by automated count 10.2 fL low: 7.8fLh igh: 11.4fL MPV 10.2 7.8 - 11.4 fL 11/22 4:03 PM [facility] PK Not Available Not Available 12/16/2024 13:27:03 11/22/19 25 11/22/2024 CBC W Auto Diffe renti al panel - Blood neutrophils/ 100 leukocytes in blood by automated count 68.3 % low: 41%hig h: 74% Neutr ophil % 68.3 41.0 - 74.0 % 11/22 4:03 PM [facility] PK Not Available Not Available 12/16/2024 13:27:03 11/22/19 25 11/22/2024 CBC W Auto Diffe renti al panel - Blood lymphocytes/ 100 leukocytes in blood by automated count 21.9 % low: 17%hig h: 47% Lymph ocyte % 21.9 17.0 - 47.0 % 11/22 4:03 PM [facility] PK Not Available Not Available 12/16/2024 13:27:03 11/22/19 25 11/22/2024 CBC W Auto Diffe renti al panel - Blood monocytes/10 0 leukocytes in blood by automated count 5.5 % low: 3%high : 11% Monoc yte % 5.5 3.0 - 11.0 % 11/22 4:03 PM [facility] PK Not Available Not Available 12/16/2024 13:27:03 11/22/19 25 11/22/2024 CBC W Auto Diffe renti al panel - Blood eosinophils/ 100 leukocytes in blood by automated count 3.2 % low: 0%high : 7% Eosin ophil % 3.2 0.0 - 7.0 % 11/22 4:03 PM DIRECTOR OF LOSS PREVENTION [facility] PK Not Available Not Available 12/16/2024 13:27:03 11/22/19 25 11/22/2024 CBC W Auto Diffe renti al panel - Blood basophils/10 0 leukocytes in blood by automated count 0.4 % low: 0%high : 1.6% Basop hil % 0.4 0.0 - 1.6 % 11/22 4:03 PM DIRECTOR OF LOSS PREVENTION [facility] PK Not Available Not Available 12/16/2024 13:27:03 11/22/19 25 11/22/2024 CBC W Auto Diffe renti al panel - Blood immature granulocytes /100 leukocytes in blood by automated count 0.7 % low: 0%high : 1% Immat ure Granu locyt es % 0.7 0.0 - 1.0 % 11/22 4:03 PM DIRECTOR OF LOSS PREVENTION [facility] PK Not Available Not Available 12/16/2024 13:27:03 11/22/19 25 11/22/2024 CBC W Auto Diffe renti al panel - Blood neutrophils [#/volume] in blood by automated count 9.32 text: 1.60 - 7.50 x10e9/ L high Neutr ophil Absol big [place] 9.32 (H) 1.60 - 7.50 x10E9 /L 11/22 4:03 PM DIRECTOR OF LOSS PREVENTION [facility] PK Not Available Not Available 12/16/2024 13:27:03 11/22/19 25 11/22/2024 CBC W Auto Diffe renti al panel - Blood lymphocytes [#/volume] in blood by automated count 2.99 text: 1.00 - 4.40 x10e9/ L Lymph ocyte Absol [place] 2.99 1.00 - 4.40 x10E9 /L 11/22 4:03 PM DIRECTOR OF LOSS PREVENTION [facility] PK Not Available Not Available 12/16/2024 13:27:03 11/22/19 25 11/22/2024 CBC W Auto Diffe renti al panel - Blood monocytes [#/volume] in blood by automated count 0.75 text: 0.15 - 1.00 x10e9/ L Monoc yte Absol [place] 0.75 0.15 - 1.00 x10E9 /L 11/22 4:03 PM DIRECTOR OF LOSS PREVENTION [facility] PK Not Available Not Available 12/16/2024 13:27:03 11/22/19 25 11/22/2024 CBC W Auto Diffe renti al panel - Blood eosinophils [#/volume] in blood 0.43 text: 0.00 - 0.60 x10e9/ L Eosin ophil Absol [place] 0.43 0.00 - 0.60 x10E9 /L 11/22 4:03 PM DIRECTOR OF LOSS PREVENTION [facility] PK Not Available Not Available 12/16/2024 13:27:03 11/22/19 25 11/22/2024 CBC W Auto Diffe renti al panel - Blood basophils [#/volume] in blood by automated count 0.05 text: 0.00 - 0.13 x10e9/ L Basop hil Absol [place] 0.05 0.00 - 0.13 x10E9 /L 11/22 4:03 PM DIRECTOR OF LOSS PREVENTION [facility] PK Not Available Not Available 12/16/2024 13:27:03 11/22/19 25 11/22/2024 CBC W Auto Diffe renti al panel - Blood interpretati on and review of laboratory results Abnorm al Not Available Not Available 13:27:03 11/22/19 25 11/22/2024 Compr ehens talia metab olic 1999 panel - Serum or Plasm a urea nitrogen [mass/volume ] in serum or plasma 23 mg/dL low: 7mg/dL high: 26mg/d L BUN 23 7 - 26 mg/dL 11/22 4:22 PM DIRECTOR [employer] LOSS PRE[employer] [facility] PK Not Available Not Available 12/16/2024 13:27:03 11/22/19 25 11/22/2024 Compr ehens talia metab olic 2000 panel - Serum or Plasm a creatinine [mass/volume ] in serum or plasma 3.71 mg/dL low: 0.56mg /dLhig h: 0.96mg /dL high Creat inine 3.71 (H) 0.56 - 0.96 mg/dL 11/22 4:22 PM [facility] PK Not Available Not Available 12/16/2024 13:27:03 11/22/19 25 11/22/2024 Compr ehens [place] metab olic 1999 panel - Serum or Plasm a sodium [moles/volum e] in serum or plasma 134 mmol/ L low: 136mmo l/Lhig h: 145mmo l/L low Sodiu m 134 (L) 136 - 145 mmol/ L 11/22 4:22 PM [facility] PK Not Available Not Available 12/16/2024 13:27:03 11/22/19 25 11/22/2024 Compr ehens [place] metab olic 2000 panel - Serum or Plasm a potassium [moles/volum e] in serum or plasma 4.6 mmol/ L low: 3.5mmo l/Lhig h: 4.5mmo l/L high Potas sium 4.6 (H) 3.5 - 4.5 mmol/ L 11/22 4:22 PM [facility] PK Not Available Not Available 12/16/2024 13:27:03 11/22/19 25 11/22/2024 Compr ehens talia metab olic 2000 panel - Serum or Plasm a chloride [moles/volum e] in serum or plasma 103 mmol/ L low: 98mmol /Lhigh : 107mmo l/L Chlor brodie 103 98 - 107 mmol/ L 11/22 4:22 PM [facility] PK Not Available Not Available 12/16/2024 13:27:03 11/22/19 25 11/22/2024 Compr ehens [place] metab olic 2000 panel - Serum or Plasm a carbon dioxide, total [moles/volum e] in serum or plasma 21 mmol/ L low: 22mmol /Lhigh : 29mmol /L low CO2 21 (L) 22 - 29 mmol/ L 11/22 4:22 PM [facility] PK Not Available Not Available 12/16/2024 13:27:03 11/22/19 25 11/22/2024 Compr ehens [place] metab olic 1999 panel - Serum or Plasm a glucose [mass/volume ] in serum or plasma 295 mg/dL low: 70mg/d Lhigh: 99mg/d L high Gluco se 295 (H) 70 - 99 mg/dL 11/22 4:22 PM [facility] PK Not Available Not Available 12/16/2024 13:27:03 11/22/19 25 11/22/2024 Compr ehens [place] metab olic 2000 panel - Serum or Plasm a calcium [moles/volum e] in serum or plasma 8.7 mg/dL low: 8.4mg/ dLhigh : 10.2mg /dL Calci um 8.7 8.4 - 10.2 mg/dL 11/22 4:22 PM [facility] PK Not Available Not Available 12/16/2024 13:27:03 11/22/19 25 11/22/2024 Compr ehens talia metab olic 2000 panel - Serum or Plasm a protein [mass/volume ] in serum or plasma 7.9 g/dL low: 6g/dLh igh: 8.3g/d L Prote in Total 7.9 6.0 - 8.3 g/dL 11/22 4:22 PM [facility] PK Not Available Not Available 12/16/2024 13:27:03 11/22/19 25 11/22/2024 Compr ehens talia metab olic 2000 panel - Serum or Plasm a albumin [mass/volume ] in serum or plasma by bromocresol green (bcg) dye binding method 3.1 g/dL low: 3.4g/d Lhigh: 5g/dL low Album in 3.1 (L) 3.4 - 5.0 g/dL 11/22 4:22 PM [facility] PK Not Available Not Available 12/16/2024 13:27:03 11/22/19 25 11/22/2024 Compr ehens talia metab olic 2000 panel - Serum or Plasm a bilirubin.to pk [mass/volume ] in serum or plasma 0.2 mg/dL low: 0.2mg/ dLhigh : 1.2mg/ dL Bilir ubin Total 0.2 0.2 - 1.2 mg/dL 11/22 4:22 PM DIRECTOR OF LOSS PREVENTION [facility] PK Not Available Not Available 12/16/2024 13:27:03 11/22/19 25 11/22/2024 Compr ehens [place] metab olic 1999 panel - Serum or Plasm a alkaline phosphatase [enzymatic activity/vol ume] in serum or plasma 263 U/L low: 40U/Lh igh: 150U/L high Alkal ine Phosp hatas e 263 (H) 40 - 150 U/L 11/22 4:22 PM DIRECTOR [employer] LOSS PREVENTION [facility] PK Not Available Not Available 12/16/2024 13:27:03 11/22/19 25 11/22/2024 Compr ehens [place] metab olic 1999 panel - Serum or Plasm a alanine aminotransfe rase [enzymatic activity/vol ume] in serum or plasma by no addition of P-5'-P 15 U/L low: 5U/Lhi gh: 55U/L ALT 15 5 - 55 U/L 11/22 4:22 PM DIRECTOR OF LOSS PREVENTION [facility] PK Not Available Not Available 12/16/2024 13:27:03 11/22/19 25 11/22/2024 Compr ehens talia metab olic 2000 panel - Serum or Plasm a aspartate aminotransfe rase [enzymatic activity/vol ume] in serum or plasma 12 U/L low: 5U/Lhi gh: 34U/L AST 12 5 - 34 U/L 11/22 4:22 PM DIRECTOR [employer] LOSS PREVENTION [facility] PK Not Available Not Available 12/16/2024 13:27:03 11/22/19 25 11/22/2024 Compr ehens talia metab olic 2000 panel - Serum or Plasm a anion gap 10 low: 6high: 16 Anion Gap 10 6 - 16 11/22 4:22 PM DIRECTOR [employer] LOSS PREVENTION [facility] PK Not Available Not Available 12/16/2024 13:27:03 11/22/19 25 11/22/2024 Compr ehens talia metab olic 2000 panel - Serum or Plasm a urea nitrogen/cre atinine [mass ratio] in serum or plasma 6 low: 7high: 23 low BUN/C reati nine Ratio 6 (L) 7 - 23 11/22 4:22 PM DIRECTOR [employer] LOSS PRE[employer]ION [facility] PK Not Available Not Available 12/16/2024 13:27:03 11/22/19 25 11/22/2024 Compr ehens talia metab olic 1999 panel - Serum or Plasm a osmolality calculated 293 text: 275 - 295 mOsm/k g Osmol ality Calcu lated 293 275 - 295 mOsm/ kg 11/22 4:22 PM DIRECTOR OF LOSS PREVENTION [facility] PK Not Available Not Available 12/16/2024 13:27:03 11/22/19 25 11/22/2024 Compr ehens talia metab olic 2000 panel - Serum or Plasm a albumin/glob ulin ratio 0.6 low: 1.1hig h: 2.3 low Album in/Gl obuli n Ratio 0.6 (L) 1.1 - 2.3 11/22 4:22 PM DIRECTOR OF LOSS PREVENTION [facility] PK Not Available Not Available 12/16/2024 13:27:03 11/22/19 25 11/22/2024 Compr ehens talia metab olic 1999 panel - Serum or Plasm a glomerular filtration rate/1.73 sq M.predicted [volume rate/area] in serum, plasma or blood by creatinine-b ased formula (CKD-epi 2020) 16 text: >=90 mL/min /1.73 m2 low eGFR by CKD-E PI 16 (L) >=90 mL/mi n/1.7 3 m2 11/22 4:22 PM DIRECTOR OF LOSS PREVENTION [facility] PK Not Available Not Available 12/16/2024 13:27:03 11/22/19 25 11/22/2024 Compr ehens talia metab olic 2000 panel - Serum or Plasm a interpretati on and review of laboratory results Abnorm al Not Available Not Available 13:27:03 12/06/19 25 12/09/2024 NO TEST INDIC ATED . Commen t A serum separ ator tube was recei [place] with no test indic ated Not Available [facility] ([facility]) [address], [place], [address], 12/09/2024 10:12:37 12/06/19 25 12/09/2024 NO TEST INDIC ATED dear doctor, Gemma martinez The requi emanuel n we recei [place] for the above patie nt has no test indic ated on the reque st form for one or more of the speci mens submi tted. [place] Reg[place] ation s requi res a writt en and praneeth d reque st be forwa rded to the testi ng labor atory follo wing the verba l order of a labor atory test. Date: ___ ICD Diagn osis Code( s):__ _ Physi leeann or Autho rized Desig nee Signa ture: Your signa ture confi timbo your order of the test( s) liste d Requi red test name( s):__ _ Requi red test numbe r(s): _ Pleas e provi de reque sted infor cyndie briceno and fax to [phone] to exped ite testi ng. Not Available [facility] ([facility]) [address] [facility], [place], [address], 12/09/2024 10:12:37 12/06/19 25 12/10/2024 SPECI MEN STATU S REPOR T specimen status report TNP Test not perfo rmed due to the age of this speci men. Test not perfo rmed. Attem pts to conta ct your facil ity were unsuc cessf ul. TEST: [id number] Sedim entat ion Rate- Weste rgren Not Available [facility] ([facility]) [address] [facility], [place], [address], 12/10/2024 11:17:09 12/06/19 25 12/08/2024 HEMOG LOBIN A1C hemoglobin A1C 12.8 % 4.8-5. 6 above high normal Predi abete s: 5.7 - 6.4 Diabe karolina: >6.4 Glyce darleen contr ol for adult s with diabe karolina: <7.0 Not Available [facility] ([facility]) [address] [facility], [place], [address], 12/10/2024 11:17:10 12/06/19 25 12/10/2024 SEDIM ENTAT ION RATE- WESTE RGREN sedimentatio n rate-westerg hanh - mm/HR Test not perfo rmed due to the age of this speci men. Test not perfo rmed. Attem pts to conta ct your facil ity were unsuc cessf ul. Not Available [facility] ([facility]) [address] [facility], [place], [address], 12/10/2024 11:17:11 08/05/20 23 08/04/2023 XR, chest , 2 view No observ ation record ed. [facility] [address], [place], [address], 08/05/2023 16:40:30 08/06/20 23 08/06/2023 MRI, brain + brain stem, w/o contr ast No observ ation record ed. [address], [place], [address], 08/06/2023 14:01:07 08/11/2008/07/2023 US, doppl er, venou s No observ ation record ed. [address], [place], [address], 08/11/2023 11:52:24 08/11/2008/11/2023 XR, chest , 2 view No observ ation record ed. [address], [place], [address], 08/12/2023 12:00:22 08/12/20 23 08/12/2023 XR, chest , 2 view No observ ation record ed. [address], [place], [address], 08/13/2023 14:31:59 08/13/2008/13/2023 CT, brain , w/o contr ast No observ ation record ed. [address], [place], [address], 08/13/2023 15:31:08 08/15/20 23 08/15/2023 lab* No observ ation record ed. [email or web address], [place], [address], 08/18/2023 12:55:08 08/15/2008/15/2023 lab* No observ ation record ed. [email or web address], [place], [address], 08/18/2023 12:55:03 08/18/2008/15/2023 lab* No observ ation record ed. [email or web address], [place], [address], 08/18/2023 12:54:44 08/29/20 23 08/06/2023 US, echoc ardio gram No observ ation record ed. [email or web address] Not Available 09/13 15:56:53 01/09/20 24 01/07/2024 CT, abdom en + pelvi s, w/ contr ast No observ ation record ed. [address], [place], [address], 01/13/2024 10:52:03 01/14/20 24 01/14/2024 XR, chest , 2 view No observ ation record ed. [address] [facility], [place], [address], 01/14/2024 17:10:02 01/15/20 24 01/14/2024 CT, chest , w/ contr ast No observ ation record ed. [address] [address], [place], [address], 01/15/2024 11:46:27 02/16/20 24 02/16/2024 US, abdom en No observ ation record ed. [address] [facility], [place], [address], 02/17/2024 09:54:11 02/18/20 24 02/16/2024 CT, chest , w/wo contr ast No observ ation record ed. [address], [place], [address], 02/18/2024 13:01:14 02/22/20 24 02/20/2024 lab* No observ ation record ed. [email or web address], [place], [address], 02/23/2024 07:50:57 02/22/20 24 02/21/2024 lab* No observ ation record ed. [email or web address], [place], [address], 02/23/2024 07:50:52 02/22/20 24 02/22/2024 lab* No observ ation record ed. [email or web address], [place], [address], 02/23/2024 07:50:49 02/23/20 24 02/21/2024 US, axill a No observ ation record ed. [address], [place], [address], 02/24/2024 08:53:11 02/26/20 24 02/16/2024 US, echoc ardio gram No observ ation record ed. BARCODE Not Available 2023 18:53:56 05/18/20 24 05/18/2024 XR, chest , 2 view No observ ation record ed. [address] [address], [place], [address], 05/18/2024 15:03:50 05/20/20 24 05/20/2024 XR, chest , 2 view No observ ation record ed. [address], [place], [address], 05/21/2024 09:11:41 07/25/20 24 07/25/2024 XR, shoul brandon, 2 or more view No observ ation record ed. [address] [address], [place], [address], 07/25/2024 15:06:40 07/26/20 24 07/25/2024 CT, chest + abdom en + pelvi s, w/o contr ast No observ ation record ed. [address], [place], [address], 07/26/2024 14:44:50 08/26/20 24 08/25/2024 lab* No observ ation record ed. [email or web address] [address], [place], [address], 08/26/2024 15:11:26 08/26/20 24 08/25/2024 lab* No observ ation record ed. [email or web address] [address], [place], [address], 08/26/2024 15:11:37 09/13/20 24 05/21/2023 US, echoc ardio gram, trans thora cic, compl ete, w/ color flow No observ ation record ed. BARCODE Not Available 2023 16:56:55 11/02/20 24 11/02/2024 XR, chest , 2 view No observ ation record ed. [address], [place], [address], 12/21/2024 12:16:11 11/10/19 25 11/10/2024 XR, chest , 1 view No observ ation record ed. [address], [place], [address], 12/21/2024 12:16:11 Result Notes None recorded. Problems Name Problem SNOMED Code Status Onset Date Resolution Date Notes Provider Name and Address Organization Details Recorded Time Diabetes mellitus 71953487 Active 2022 Betsey Jonas [employer] [place], [place] [facility] 11:54:58 Hypertensiv e disorder 56100020 Active 2022 Betsey Jonas [employer] [place] [facility] 11:55:13 Edema 910388882 Active 2022 Betsey Jonas, [employer] [place] [facility] 11:55:38 Uncontrolle d type 2 diabetes mellitus 832152452 Active 2022 MAURICIO OSWALD Attn: Tylor valerio,[address] [facility], [place], [address], [place] [facility] 12:02:47 Amputated left lower limb below knee 907611245 Active 2022 MAURICIO OSWALD Attn: Tylor valerio,[address], [place], [address] [facility] 12:02:50 Essential hypertensio n 09837114 Active 2022 MAURICIO OSWALD Attn: Tylor valerio,[address], [place], [address], [place] [facility] 12:02:48 Hospital inpatient stay within past 30 days 5590852914271 Active 2022 MAURICIO OSWALD Attn: Tylor g,[address], [place], [address], [place] [facility] 15:00:27 Glaucoma 88824179 Active 2022 MAURICIO OSWALD Attn: Tylor valerio,[address], [place], [address], [place] [facility] 3 16:32:50 Problem Notes None recorded. Procedures Surgical History None recorded. Imaging Results Imaging Date Name Status LastModified by Organization Details LastModified Time 08/04/2023 XR, chest, 2 view completed [address], [address], 08/05/2023 16:40:30 08/06/2023 MRI, brain + brain stem, w/o contrast completed [address], [address], 08/06/2023 14:01:07 08/07/2023 US, doppler, venous completed [address], [address], 08/11/2023 11:52:24 08/11/2023 XR, chest, 2 view completed [address], [address], 08/12/2023 12:00:22 08/12/2023 XR, chest, 2 view completed [address], [place], [address], 08/13/2023 14:31:59 08/13/2023 CT, brain, w/o contrast completed [address], [place], [address], 08/13/2023 15:31:08 08/15/2023 lab* completed [address], [place], [address], 08/18/2023 12:55:08 08/15/2023 lab* completed [address], [place], [address], 08/18/2023 12:55:03 08/15/2023 lab* completed [address], [place], [address], 08/18/2023 12:54:44 08/06/2023 US, echocardiogram completed [facility] ation not available 09/13/2024 15:56:53 01/07/2024 CT, abdomen + pelvis, w/ contrast completed [address], [place], [address], 01/13/2024 10:52:03 01/14/2024 XR, chest, 2 view completed [address], [place], [address], 01/14/2024 17:10:02 01/14/2024 CT, chest, w/ contrast completed [address], [place], [address], 01/15/2024 11:46:27 02/16/2024 US, abdomen completed [address], [place], [address], 02/17/2024 09:54:11 02/16/2024 CT, chest, w/wo contrast completed [address], [place], [address], 02/18/2024 13:01:14 02/20/2024 lab* completed [address], [place], [address], 02/23/2024 07:50:57 02/21/2024 lab* completed [address], [place], [address], 02/23/2024 07:50:52 02/22/2024 lab* completed [address], [place], [address], 02/23/2024 07:50:49 02/21/2024 US, axilla completed [address], [place], [address], 02/24/2024 08:53:11 02/16/2024 US, echocardiogram completed [facility] Inform ation not available 02/26/2024 18:53:56 05/18/2024 XR, chest, 2 view completed [address] [address], [place], [address], 05/18/2024 15:03:50 05/20/2024 XR, chest, 2 view completed [address] [address], [place], [address], 05/21/2024 09:11:41 07/25/2024 XR, shoulder, 2 or more view completed [address], [place], [address], 07/25/2024 15:06:40 07/25/2024 CT, chest + abdomen + pelvis, w/o contrast completed [address], [place], [address], 07/26/2024 14:44:50 08/25/2024 lab* completed [address], [place], [address], 08/26/2024 15:11:26 08/25/2024 lab* completed [address], [place], [address], 08/26/2024 15:11:37 05/21/2023 US, echocardiogram, transthoracic, complete, w/ color flow completed [facility] Information not available 09/13/2024 16:56:55 11/02/2024 XR, chest, 2 view completed [address] [address], [place], [address], 12/21/2024 12:16:11 11/10/2024 XR, chest, 1 view completed [address] [address], [place], [address], 12/21/2024 12:16:11 Procedure Notes None recorded. Medical Equipment None [...] TAKE 1 TABLET BY MOUTH TWICE DAILY active Not Available Not Available No t Available venlafaxi ne ER 37.5 mg capsule,e xtended [...] UNITS SUBCUTAN EOUSLY AT BEDTIME 09/08 completed [facility] took her off. Not Available Not Available [...] EVERY 6 TO 8 HOURS NEEDED FOR 30 DAYS FOR RIGHT SHOULDER PAIN active Not Available [...] n 300 mg capsule TAKE 1 CAPSULE BY MOUTH ON FRIDAY, Y AND FRIDAY active Not Available Not Available No t Available gentamici n 0.1 % topical cream APPLY [...] completed Not Available Not Available Not Available doxycycli ne hyclate 100 mg tablet TAKE 1 TABLET BY MOUTH EVERY 12 HOURS active Not Available Not Available No t Available dorzolami de 2 % eye drops [...] 2023 active Not Available Not Available Not Asad steve Thera-M 9 mg iron-400 mcg tablet TAKE [...] 1.5 mg/0.5 mL subcutane ous pen injector 1.5 mg subcu once a week 2024 active Not Available Not Available Not Avai lable Trulicity 0.75 mg/0.5 mL subcutane ous pen injector .75 mg subcu weekly 2024 active Not Available Not Available Not Avveronica steve OneTouch Delica Plus Lancet 33 gauge USE 1 TO CHECK GLUCOSE TWICE DAILY 09/08 completed Not Available Not Available Not Available Slynd 4 mg (28) tablet TAKE 1 TABLET BY MOUTH ONCE DAILY DIRECTED active Not Available Not Available No t Available OneTouch Verio Reflect Meter 09/08 completed Not Available Not Available Not Available Vitals Date Recorded Respiratory rate Body temperature Oxygen saturation Oxygen saturation in Arterial blood by Pulse oximetry Heart rate Systolic blood pressure Diastolic blood pressure Provider Name and Address Organization Details Last Updated DateTime 3 18 /min 97.9 [degF] 98 % 98 % 74 /min 140 mm[Hg] 92 mm[Hg] Bri Carlton [place] [facility] 3 12:48:30 Date Recorded Oxygen saturation Oxygen saturation in Arterial blood by Pulse oximetry Heart rate Respiratory rate Body temperature Systolic blood pressure Diastolic blood pressure Provider Name and Address Organization Details Last Updated DateTime 3 95 % 95 % 97 /min 17 /min 97.6 [degF] 144 mm[Hg] 86 mm[Hg] Betsey SumiTONA clark [facility] 3 14:25:38 Date Recorded Oxygen saturation Oxygen saturation in Arterial blood by Pulse oximetry Heart rate Systolic blood pressure Diastolic blood pressure Provider Name and Address Organization Details Last Updated DateTime 4 99 % 99 % 89 /min 186 mm[Hg] 114 mm[Hg] Yamileth Fournier MA [facility] 4 16:46:14 Date Recorded Respiratory rate Systolic blood pressure Diastolic blood pressure Provider Name and Address Organization Details Last Updated DateTime 09/08/2024 18 /min 180 mm[Hg] 110 mm[Hg] MAURICIO OSWALD Attn: Accounting, [address] [place], [address], [facility] 09/09/2024 10:10:08 Date Recorded Body height Heart rate Respiratory rate Oxygen saturation Oxygen saturation in Arterial blood by Pulse oximetry Systolic blood pressure Diastolic blood pressure Provider Name and Address Organization Details Last Updated DateTime 5 170.18 cm 96 /min 18 /min 99 % 99 % 122 mm[Hg] 81 mm[Hg] Rosalind Caballero MA [facility] 5 15:03:16 Social History Question Answer Notes LastModified by Organizat ion Details LastModified Time Tobacco Smoking Status Former Smoker quit 2002 Betsey Jonas CMA null, [facility] 01/30/2023 11:53:19 What Is Your Level Of Alcohol Consumption? Occasional Information not available 01/30/2023 What Is Your Level Of Caffeine Consumption? Moderate Information not available 01/30/2023 What Was The Date Of Your Most Recent Tobacco Screening? 12/06/2024 [email or web address] Information not available 12/06/2024 Do You Use Any Illicit Or Recreational [...] Response Coronary Artery Disease N Other N High Blood Pressure Y Atrial Fibrillation N Thyroid Problems N Kidney or Bladder Problems N GI Problems N Depression N COPD N Blood Clots N Skin Problems N Eating Disorder N Anemia N Heart Attack (LA) N Anxiety Disorder N Diabetes Y Muscle, Joint, or Bone Problems N Seizures/Epilepsy N Acid Reflux (GERD) N Cancer N Stroke N Asthma N Allergies Y ADHD N Substance Abuse N High Cholesterol N Hepatitis N Liver Disease N Schizophrenia N Headaches N Heart Failure N Osteoporosis N Gynecological History Statement/Question Response Menses Monthly Y Duration of Flow (days) 10 Current Control Method None Date of LMP 11/26/2024 LMP Approximate Obstetrics History GPAL:G 0 P 0 0 0 0 Past Encounters Encounter ID Performer Location Encounter Start Date Encounter Closed Date Diagnosis/Indication Diagnosis SNOMED-CT Code Diagnosis ICD10 Code Diagnosis Note [id number] Edwin briceno MD [facility], [facility] [address] [place] [address] 01/30/2023 11:38:53 01/30/2023 12:32:15 Uncontrolled type 2 diabetes mellitus 897098926 E11.65 diagnosed age 18Hgb a1c 11.7 on 08/22/22a1 c 6.7 in hospitala1 c today 5.6on SA insulin with meals 5 units, and lantus 5 units at bedtimehas been on PO meds in the pastrecord BS logf/u in 2 wks Amputated left lower limb below knee 444424553 Z89.512 due to necrotizin g fasciitisf ollowing with vascular and wound caremissed wound appt this weekPEx- 2 cm x 2 cm circular superficia l ulceration to plantar heeladvise d pt to make appt MONICA due to new wound and missed apptrefer for prosthetic Essential hypertension 31967582 I10 out of medsBP today 146/94f/u in 2 wks Depression screening 171 294181 Z13.31 PHQ 0 Hospital i npatient stay within past 30 days [id number] 106 Z76.89 PMH of DM 2, HTN, HFpEF, morbid obesity, MDD , who presented to [facility] on 12/02/2022 for large wound to [...] surgery on 12/05Patie nt was discharged to [facility] on 12/12/2022 in stable condition, was in rehab for 10-12 days Heart fail ure with normal ejection fraction 522364874 I50.30 Cardiology referralpt reports she was never [...] BHU-Coreg 12.5 BID Iron defic iency anemia 48073739 D50.9 refill Dilated pupil 55595153 H 57.04 L sclera injected, pupil 4 mm dilated, reactive to lightpt denies pain or vision lossadvise d sister to call [facility] for urgent appt [id number] MAURICIO OSWALD [facility] [address] [place] [address] 02/14/2023 12:37:29 02/14/2023 13:34:21 Amputated left lower limb below knee 341245430 Z89.512 02/14/23:pr inted off referral and encouraged pt to call to schedule appt 01/30/23:du e to necrotizijanak g fasciitisf ollowing with vascular and wound caremissed wound appt this weekPEx- 2 cm x 2 cm circular superficia l ulceration to plantar heeladvise d pt to make appt MONICA due to new wound and missed apptrefer for prosthetic Heart fail ure with normal ejection fraction 530641087 I50.30 02/14/23:Mauricio santana and sister report never [...] BID Uncontroll ed type 2 diabetes mellitus 003547911 E11.65 02/14/23:BS post prandial 130-260sst op insulinsta rt metformin 1000Check Lipid panel, CMP, TSH, and FT4f/u in 1 mo with BS log 01/30/23:di agnosed age 18Hgb a1c 11.7 on 08/22/22a1 c 6.7 in hospitala1 c today 5.6on SA insulin with meals 5 units, and lantus 5 units at bedtimehas been on PO meds in the pastrecord BS logf/u in 2 wks Essential hypertension 53341418 I10 02/14/23:BP 140/92did not take meds yet 01/30/23:ou t of medsBP today 146/94f/u in 2 wks Dilated pupil 99631548 H 57.04 02/14/23:PE x- unchanged from prior, L sclera injected, pupil 4 mm dilated, reactive to lightRepor ts following with [facility]. Patient doing shots in each eye every month Iron defic iency anemia 42339756 D50.9 RefillChec k CBC, iron, TIBC, and ferritin levels Open wound, heel 4124181 09 S91.301A 2 cm x 2 cm open ulceration of right heel, no active drainage or bleedingGi bryce wound care suppliesEd ucated patient and family on keeping the wound clean, dry, and coveredRef er to wound care [facility] [id number] Edwin briceno MD [facility] [address] [place] [address] 03/20/2023 14:14:57 03/20/2023 15:00:39 Open wound, heel 283049234 S91.301A 03/20/23:sa w wound care 03/18/23, goes once a weekXR negative for osteomyeli tis of R foot, has upcoming MRI and US for lymphedema to BLE 02/14/23:2 cm x 2 cm open ulceration of right heel, no active drainage or bleedingGi bryce wound care suppliesEd ucated patient and family on keeping the wound clean, dry, and coveredRef er to wound care at [facility] Uncontroll ed type 2 diabetes mellitus 507087335 E11.65 03/20/23:we nt to hospital 02/12/23, stopped [...] BS logf/u in 2 wks Essential hypertension 67976277 I10 03/20/23:BP 144/86card io started losartan 25on amlodipine 10 and carvedilol 12.5 BIDdid not take meds 02/14/23:BP 140/92did not take meds yet 01/30/23:ou t of medsBP today 146/94f/u in 2 wks Amputated left lower limb below knee 313210912 Z89.512 03/20/23:olivo d prosthetic eval at [facility], rec'd PT before prosthetic pt wants inpatient [...] Heart fail ure with normal ejection fraction 740783853 I50.30 03/20/23:Sa w cardio 03/18, Dr. Mendez, labs requested per Dr. Sandy arteaga stress test, started her on potassium 20, losartan 25, furosemide 20has f/u appt 04/22/23 02/14/23:Mauricio santana and sister report never getting [...] DC to IP BHU-Coreg 12.5 BID Glaucoma 18866931 H40.9 03/20/23:to ld she has glaucoma in L eyefollowi ng with [facility] once a month 02/14/23:PE x- unchanged from prior, L sclera injected, pupil 4 mm dilated, reactive to lightRepor ts following with [employer]. Patient doing shots in each eye every month [id number] MAURICIO OSWALD [facility] [address] [place] [address] 09/08/2024 16:37:58 09/08/2024 17:18:03 Hospital inpatient stay within past 30 days [id number] 106 Z76.89 Admitted to [facility] 08/26/24 to 09/01/24 Right [...] Advised pt to call IR/Vascula r at [facility] for follow-up about R shoulder drain Heart fail ure with normal ejection fraction 961494388 I50.30 09/08/24:HF pEF- last TTE 07/30/24 showing [...] 25, furosemide 20has f/u appt 04/22/23 02/14/23:Mauricio duongeyad and sister report never getting a call [...] to IP BHU-Coreg 12.5 BID Essential hypertension 38818172 I10 09/08/24: did not take meds today, BP 180/110 x2 03/20/23:BP 144/86card io started losartan 25on amlodipine 10 and carvedilol 12.5 BIDdid not take meds 02/14/23:BP 140/92did not take meds yet 01/30/23:ou t of medsBP today 146/94f/u in 2 wks Diabetic p eripheral neuropathy 286945322 E11.40 refill Acute deep venous thrombosis of right upper extremity 9771204846 71560 I82.621 R shoulderre fill Chronic constipation 236 367858 K59.09 refill Pain of ri ght shoulder joint [id number] 9547845 M25.511 septic arthritisr equesting oxycodone refilldisc ussed with pt would not be filling pain medication s long termwill give script of tramadol, future referral to PMrefill methocarba mol Difficulty sleeping 3013 56135 Z72.820 requesting trazodone to help her sleep, can interact with Eliquisno relief with OTC meds Contraception care 22856 5005 Z30.40 last period 07/2024 and wants to regulate cyclesurin e preg negativewi ll send slynd Bilateral cataracts 9572 2003 H26.9 refer to [facility] Ophtho Uncontroll ed type 2 diabetes mellitus 147461866 E11.65 09/08/24: a1c inpatient 7.4%wants to re-start [...] 01/30/23:di agnosed age 18Hgb a1c 11.7 on 10/20/22a1 c 6.7 in hospitala1 c today 5.6on SA insulin with meals 5 units, and lantus 5 units at bedtimehas been on PO meds in the pastrecord BS logf/u in 2 wks Depression screening 171 753302 Z13.31 PHQ 0 [id number] Natalee Jennings MD [facility] [address] [place] [address] 12/06/2024 14:49:58 12/09/2024 10:25:28 Pain of right shoulder joint 8489005443 7704589 M25.511 Right shoulder pain. Reviewed orthopedic note and patient has a history of osteomyeli tis in this shoulder. Had it treated with antibiotic s and was discharged on Doxycyclin e, but there was a question as to how long she would need to continue the Doxycyclin e and if the infection was treated. She said the pain is not worse then it was on discharge, but it has not resolved. Will give her Tramadol for pain. Will also check a sed rate to see if it is elevated which may indicate increasing infection. Will have her follow up in one month to reevauate. Type 2 jassi betes mellitus 49184878 E11.21 Will check a Hemoglobin A1C to try to get a sense of diabetic control. Amputated right lower limb below knee 512572009 Z89.511 Will refer her for gait training. Ulcer of heel 902652028 L97.409 Sent for wound care. Last saw infection disease doctor two weeks ago. I did not undo dressing today. Will re evaluate it at follow up. Essential hypertension 26328696 I10 Blood pressure good today. Heart fail ure with normal ejection fraction 539765717 I50.30 [id number] Bri Carlton MA [facility] [address] [place] [address] 12/31/2024 11:33:03 12/31/2024 11:43:52 Health Concerns Section Related Observation LastModified by Organization Angelina burks LastModified Time None Recorded Concern Status LastModified by Organization Details LastModified Time None Recorded Advance Directives Directive None Recorded Payers Encounter Date Sequence Insurance Name Policy Number Policy Bobo Covered Member ID Bobo Member ID Guarantor Name 02/14/2023 1 [facility] (MEDICAID REPLACEMENT - HMO) [id number] Gay Canales [id number] Gay Canales 03/20/2023 1 [facility] (MEDICAID REPLACEMENT - HMO) [id number] Gay Canales [id number] Gay Canales 09/08/2024 1 [facility] (MEDICAID HMO) [id number] Gay Canales [id number] Gay Canales 12/06/2024 1 [facility] (MEDICAID HMO) [id number] Gay Canales [id number] Gay Canales 12/31/2024 1 [facility] (MEDICAID HMO) [id number] Gay Canales [id number] Gay Canales Notes Date Note Type Note Provider Name and Address Organization Details Recorded Time 02/14/2023 text/html Gay Canales is a 32 [...] shortness of breath, headache, and dysuria. MAURICIO OSWALD Attn: Accounting,[address] [facility], [place], [address], [facility] 02/14/2023 15:04:55 03/20/2023 text/html Pt [...] potassium and furosemide. Edwin Call MD Attn: Accounting[address] [facility], [place], [address], [facility] 03/24/2023 10:00:05 09/08/2024 text/html Pt presents to re-establish care. Last OV 03/2023. Most recent hospitalization was due to septic R shoulder and currently has drain. States that she was in a fpc for the past year. Requesting med refills. MAURICIO OSWALD Attn: Accounting[address] [facility], [place], [address], [facility] 09/09/2024 10:20:36 12/06/2024 text/html S/P BKA, was sup posed to do gait training with [facility], it was going to be on an inpatient basis but they could not manage her dialysis, needs outpatient gait training now, had amputation and learning how to walk again, was in fpc a year, was going to stay at [facility] while getting PT but don't accommodate dialysis, also needs wound care referral, saw an infectious disease doctor the end of November for heel ulcer and wants her to see water conservation specialist, has been out of hospital since August, sister has been cleaning it with saline, Trulicity once a week, tolerating it well, sometimes causes more frequent stools, had right shoulder surgery in August, shoulder doesn't hurt as much as it used to but hurts sometimes, hurts the way sleeping, hurts when sitting in dialysis chair, no fever, would like something for pain, blind Natalee Jennings MD Attn: Accounting[address] [facility], [place], [address], [facility] 12/06/2024 18:42:06 OBGyn Episode No OBEpisode recorded.
--- OUTSIDE RECORDS SUMMARY | 2025-01-13 21:19 | XMS_ITS | Referral Summary ---
Author Organization [facility] Address [address] [place] [address] Care Team Providers Care Armored Vehicle Officer Name Role Phone Cherise Patrick Primary Care Provider [phone] Encounters Date Type Department Care Team Description 01/12/2025 Telephone [facility] Ophthalmology [address] [facility] 6th [place] [address] Nancie Hoyos MD 01/11/2025 9:15 AM CDT Office Visit [facility] Ophthalmology [address] [facility] 2nd [address], [address] [place] [address] Bita Vega MD Pseudophakia, right eye (Primary Dx) 01/10/2025 10:30 AM CDT - 01/10/2025 11:15 AM CDT Surgery [facility] Operating Room [facility] [address] [place] [phone] Bita Vega MD COMPLEX EXTRACTION CATARACT - PHACOEMULSIFICATION AND LENS IMPLANT 01/10/2025 11:39 AM CDT Anesthesia Event [facility] Operating Room [facility] [address] [place] [phone] Carla Neri MD Mallette, Allison Anne, NP 01/10/2025 8:34 AM CDT - 01/10/2025 12:39 PM CDT Hospital Encounter 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] (Primary Dx) Discharge Disposition: Discharge to home or self care 01/06/2025 Telephone [facility] Ophthalmology [address] [place] [phone] Bita Vega MD 12/29/2024 Telephone [facility] Ophthalmology [address] [place] [phone] Bita Vega MD Med Refill; Rx change 11/08/2024 Telephone [facility] Ophthalmology [address] [place] [phone] Bita Vega MD return call 11/01/2024 1:20 PM PLANNER INTERN Office Visit [facility] Ophthalmology [address] [place] [phone] Nancie Hoyos MD Traction detachment of both retinas (Primary Dx) from Last 3 Months Allergies No known active allergies Medications furosemide (LASIX) 40 mg tabletIndicati ons:hypertensi on Take 1 tablet (40 mg total) by mouth store management trainee before breakfast Active carvediloL (COREG) 12.5 mg tabletIndicati ons:hypertensi on Take 1 tablet (12.5 mg total) by mouth 2 (two) times a day with meals Active amLODIPine (NORVASC) 10 mg tabletIndicati ons:hypertensi on Take 1 tablet (10 mg total) by mouth store management trainee before breakfast Active dulaglutide (TRULICITY) 0.75 mg/0.5 [...] 1 tablet (20 mg total) by mouth store management trainee before breakfast Active gabapentin (NEURONTIN) 300 mg [...] 1 tablet (25 mg total) by mouth store management trainee before breakfast 12/23/19 25 Discontinu ed(Therapy completed) Active Problems Problem Noted Date Diagnosed Date 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 11/08/2024 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 Never 04/16/2023 Do you belong to any clubs o r organizations such as holiness groups, unions, fraternal or athletic groups, or [...] on file Legal Sex Female 8:53 PM PLANNER INTERN Gender Identity Female 12/23/2024 9:35 AM PLANNER INTERN Sexual Orientation Straight 12/23/2024 9: 35 AM PLANNER INTERN Last Filed Vital Signs Vital Sign Reading [...] cm (5' 7 ) 12/23/2024 9:15 AM PLANNER INTERN Body Mass Index 38.84 12/23/2024 9:15 AM PLANNER INTERN Plan of Treatment Not on file Medical Devices Implanted Type Area Dater Assembler Device Identifier Shelf Expiration Date Model / Serial / Lot [employer] Lens Iol [id number] [employer] [id number] - [id number] - [id number] Implanted:Qty: 1 on 01/10/2025 by Bita Vega MD at [facility] Lens Right: Eye [employer] 06/14/2026 [id number] / [id number] / 0 Procedures Procedure Name Priority Date/Time Associated [...] URINE Routine 01/10/2025 9:30 AM CDT POCT SL-C-OVJ-GLU-HCT,WB - ISTAT Routine 01/10/2025 9:28 AM CDT B-SCAN ULTRASOUND 11516 - OD - RIGHT EYE Routine 11/01/2024 2:15 PM PLANNER INTERN Traction detachment of both retinas B-SCAN ULTRASOUND 99169 - OS - LEFT EYE Routine 11/01/2024 2:15 PM PLANNER INTERN Traction detachment of both retinas EGFR Routine 09/23/2023 5:39 PM PLANNER INTERN ALBUMIN CREATININE RATIO, URINE Routine 04/17/2023 4:23 [...] DEVIC E Final Result Performing Organization Address [facility] Co de Phone Number [facility] [address] [place] [address] * (ABNORMAL) POCT glucose (01/10/2025 11:22 AM CDT) Glucose, POC 334(H) 70 - 199 mg/dL Blood 01/10/2025 11:2 2 AM CDT 01/10/2025 11:22 AM CDT Bita Vega MD LAB POCT ORDERABLES - DEVIC E Final Result Performing Organization Address [facility] Co de Phone Number [facility] [address] [place] [address] * (ABNORMAL) POCT glucose (01/10/2025 10:34 AM CDT) Glucose, POC 377(H) 70 - 199 mg/dL Blood 01/10/2025 10:3 4 AM CDT 01/10/2025 10:34 AM CDT Bita Vega MD LAB POCT ORDERABLES - DEVIC E Final Result Performing Organization Address City/[facility] Co de Phone Number [facility] [place] [address] * POCT hCG, urine (01/10/2025 9:30 AM CDT) HCG, ur, POC Negative Negative Lot Number [id number] QC Backgroud Clear Acceptable QC Control Line Acceptable Urine 01/10/2025 9:30 AM CDT Carla Neri MD POINT OF CARE TEST ORDERA BLES Final Result * (ABNORMAL) POCT GN-E-LQS-GLU-HCT, WB - ISTAT (01/10/2025 9:28 AM CDT) Na POC 132(L) 135 - 145 mmol/L K POC 4.4 3.3 - 4.9 mmol/L [facility] Comment: Interpretive Data This method is not able to assess for hemolysis, which may falsely increase potassium concentrations. If further testing is needed to evaluate this result, consider in-laboratory plasma potassium. Current Interpretive Data was last revised on 2022. Glucose POC i-STAT 438(H) 70 - 199 mg/dL [facility] Hct, POC 39.0 35.6 - 45.5 % [facility] Blood 01/10/2025 9:28 AM CDT 01/10/2025 9:28 AM CDT Bita Vega MD LAB POCT ORDERABLES - DEVIC E Final Result [facility] [place] [address] * B-SCAN ULTRASOUND 87828 - OD - RIGHT EYE (11/01/2024 2:15 PM PLANNER INTERN) Anatomical Region Laterality Modality Head Ultrasound Narrative 11/01/2024 2:15 PM PLANNER INTERN Quality was good. Notes Total RD, near funnel us Nancie Hoyos MD OPHTH ULTRASOUND Final Res ult * B-SCAN ULTRASOUND 67144 - OS - LEFT EYE (11/01/2024 2:15 PM PLANNER INTERN) Anatomical Region Laterality Modality Head Ultrasound Narrative 11/01/2024 2:15 PM PLANNER INTERN Quality was good. Notes disorganized us Nancie Hoyos MD OPHTH ULTRASOUND Final Res ult * eGFR (09/23/2023 5:39 PM PLANNER INTERN) eGFR 22 mL/min/1. 73 m2 [facility] Comment: Interpretive Data Reference Interval Normal >/= [...] last reviewed 2021. Blood 09/23/2023 5:39 PM PLANNER INTERN 09/23/2023 8:31 PM PLANNER INTERN us Tyrel Simmons MD LAB BLOOD ORDERABLES Final Result [facility] [address] [place] [address] * (ABNORMAL) Albumin Creatinine Ratio, Urine (04/17/2023 [...] LAB URINE ORDERABLES Final Re sult [facility] [address] [facility] Department [place] [address] * (ABNORMAL) Lipid panel (04/17/2023 1:03 PM CDT) Cholesterol 97 30 - 199 mg/dL [facility] Comment: Interpretive Data Ages [...] 1:03 PM CDT 04/17/2023 1:51 PM CDT us Sultan Sofía Muro MD LAB BLOOD ORDERABLES Final Re sult [facility] [address] [facility] Department [place] [address] * (ABNORMAL) Hemoglobin A1c (04/16/2023 7:06 AM CDT) Hgb A1C 6.5(H) 4.0 - 5.6 % [facility] Estimated Average Glucose 140 mg/dL [facility] Comment: The ADA recommends reporting an estimated Average Glucose (eAG) with all Hemoglobin A1c results using the equation derived from a study of 507 normal and diabetic adults. Minority populations were underrepresented and children were not included. (Diabetes Care 31:4810-5799, 2008). The eAG is not equivalent to a fasting glucose. Blood 04/16/2023 7:06 AM CDT 04/16/2023 7:45 AM CDT us Amilcar Estrada MD LAB BLOOD ORDERABLES Final Re sult [facility] [address] [facility] Department [place] [address] from Last 3 Months or Most Recently Relevant to Health Maintenance Insurance [facility] Advance Directives For more information, please contact: [phone] Documents on File Type Date Recorded Patient Emergency Medical Tech Expl anation ADVANCE DIRECTIVE 04/23/2023 12:11 PM Breana r of Market Director-Medical ADVANCE DIRECTIVE 04/23/2023 12:11 PM POLS T [...] File Name Relationship Healthcare Agent Relationship Communication Kianna Nunez Sister Health Care Agent [email or web address] Suellen Resendiz Mother First Alternate Health Care Agent [email or web address] Care Teams Armored Vehicle Officer Relationship Specialty Start Date End Date Cherise Patrick PA [address] [place] [address], [place] [address] PCP - General Physician Muck Operator 02/20/23
[2025-01-13 21:21] LABS: Fractional Inspired Oxygen 21 %; HCO3 VBG 23.2 mEq/l (24.0-30.0); PCO2 VBG 41.5 mmHg (42.0-48.0); pH VBG 7.366 (7.300-7.400)
[2025-01-13 21:22] VITALS: BP 122/80; PULSE 86; RESP 18; O2SAT 100
[2025-01-13 21:23] LABS: Device ROOM AIR
[2025-01-13 21:24] LABS: Basophils Percent Auto 0.3 % (0.2-1.2); Eosinophils Absolute Auto 0.4 K/mm3 (0-0.3); Eosinophils Percent Auto 4.5 % (0-4.4); Hematocrit 33.1 % (37.0-47.0); Hemoglobin 10.5 g/dL (12.0-15.0); Immature Granulocyte Absolute 0.04 K/mm3 (0.00-0.031); Immature Granulocyte Percent A 0.4 % (0-0.5); Lymphocytes Absolute Auto 1.68 K/mm3 (0.9-3.2); Lymphocytes Percent Auto 18.8 % (18.3-44.2); Mean Corpuscular HGB Conc 31.7 g/dl (32-36); Mean Corpuscular Hemoglobin 29.1 pg (26-34); Mean Corpuscular Volume 91.7 fl (80-100); Monocytes Absolute Auto 0.6 K/mm3 (0.1-0.6); Monocytes Percent Auto 7.2 % (2.6-8.5); Neutrophils Absolute Auto 6.2 K/mm3 (1.3-6.7); Neutrophils Percent Auto 68.8 % (45.5-73.1); Platelet Count Result 369 k/mm3 (150-375); Red Blood Count 3.61 M/mm3 (4.2-5.4)
[2025-01-13 21:37] LABS: Acetaminophen < 10 ug/mL (10-30); Ethanol < 10 mg/dL (<10); Salicylate < 1.0 mg/dL (2-20)
[2025-01-13 21:48] LABS: Alanine Aminotransferase 13 U/L (6-35); Albumin Level 3.4 g/dL (3.5-5.1); Alkaline Phosphatase 306 U/L (38-126); Anion Gap 10 mmol/L (4-12); Aspartate Amino Transferase 15 U/L (14-36); Bilirubin,Total 0.7 mg/dL (0.2-1.3); Blood Urea Nitrogen 24 mg/dL (7-17); Calcium 8.6 mg/dL (8.4-10.2); Carbon Dioxide 22 mmol/L (22-30); Chloride 98 mmol/L (98-107); Estimated Glomerular Filt Rate 10; Glucose 599 mg/dL (65-110); Potassium 3.6 mmol/L (3.4-5.0); Sodium 130 mmol/L (137-145)
--- NOTE | 2025-01-13 21:48 | PC.NURSE ---
2100: RN attempted to get pt urine via catheter but pt is refusing and rather try on her own first.
[2025-01-13 21:52] LABS: SPREG INTERNAL CONTROL Positive; Serum Qual hCG Negative
[2025-01-13 22:01] LABS: SARS-CoV-2 RNA PCR Negative (Negative)
[2025-01-13] MEDS: INSULIN ASPART (*BKC) 100 UNITS/ML 12 UNITS SUB-Q (22:21)
[2025-01-13] MEDS: SODIUM CHLORIDE 0.9% IV 1,000 ML 999 ML IV CONT (22:21)
--- NOTE | 2025-01-13 22:40 | PC.NURSE ---
224 report received from JIMMIE Chan.
[2025-01-13 22:47] LABS: Glucose Point of Care > 500 mg/dl (65-105)
[2025-01-13 23:06] LABS: Influenza A QL RT-PCR Negative (Negative); Influenza B QL RT-PCR Negative (Negative); RSV RNA, RT-PCR Negative (Negative); SARS-CoV-2 RNA PCR Negative (Negative)
[2025-01-13] MEDS: INSULIN HUMAN REGULAR (*BKC) 100 UNITS in SODIUM CHLORIDE 0.9% IV 99 ML 12 UNITS IV CONT (23:09)
[2025-01-13] MEDS: POTASSIUM CHLORIDE 20 MEQ PACKET (FOR LIQUID) PO (23:10)
--- NOTE | 2025-01-13 23:16 | PC.NURSE ---
RN looked up IV compatibility and micromedex states insulin human regular and potassium chloride can be ran together.
[2025-01-13 23:18] LABS: Hemoglobin A1C > 14.0 % (<5.7)
[2025-01-13] MEDS: POTASSIUM CHLORIDE INJ 40 MEQ in SODIUM CHLORIDE 0.9% IV 500 ML 130 MEQ IVPB (23:27)
--- NOTE | 2025-01-13 23:28 | PC.NURSE ---
Riri applied female purwic to pt.
[2025-01-13 23:47] LABS: Anion Gap 11 mmol/L (4-12); Blood Urea Nitrogen 23 mg/dL (7-17); Calcium 8.1 mg/dL (8.4-10.2); Carbon Dioxide 19 mmol/L (22-30); Chloride 102 mmol/L (98-107); Estimated Glomerular Filt Rate 11; Glucose 503 mg/dL (65-110); Phosphorus 4.6 mg/dL (2.5-4.5); Potassium 3.4 mmol/L (3.4-5.0); Sodium 132 mmol/L (137-145)
[2025-01-14] VITALS (14 sets, daily range): BP systolic 91–143; BP diastolic 51–78; PULSE 82–94; RESP 14–21; TEMP 36.6–36.8; O2SAT 95–100; BMI 41.6
--- NOTE | 2025-01-14 00:10 | P.HP_ITS ---
H&P: HPI History of Present Illness Date/Time: 01/14/25 00:20 Chief Complaint: Intentional Overdose Narrative: 34-year-old female with a past medical history end-stage renal disease on hemodialysis, type 2 diabetes mellitus, blindness due to glaucoma, diabetic neuropathy, left [id number] amputation, chronic right heel diabetic/pressure ulcer who presented to the ER from home via EMS due to taking an unknown amount of an unknown medication to overdose. The patient on arrival to the ER had mildly low blood pressure of 92/60 and glucoses were reading high on glucometer. Patient was drowsy but awake enough to answer questions. She took the medications between 18:00 and 19:30 and then called her sister. The patient stated that she put the pill bottle under her pillow and does not know which medication she took. The family states that they are unable to go to her home because they use public transit and hurt attempting to get a another family member to go to her home to look for the medication. Eventually patient's family member did bring the pill bottle from home. It was Coreg but the patient had several doses of medication left in the bottle. She reports that she usually urinates multiple times a day as long as she is drinking water but has not had anything to eat or drink today and has not been drinking much fluid in the last several days. She reports that she is depressed and has no appetite. She reports her depression has been ongoing for months and is been worsening. She reports that she is depressed due to her chronic medical conditions. She underwent racing cataract surgery hoping it would improve her vision only to still have little to no vision in her right eye and now needs to have a follow- up with her doctor for possible laser surgery of her retina. She also reports that she was having increasing right shoulder pain. She has been admitted multiple times since February 2024 with septic arthritis /septic bursitis in osteomyelitis of the right shoulder which has been managed at [facility]. Her most recent hospitalization was in November. She was discharged on a 30 day supply of doxycycline which was completed the 2nd week in December. She reports that the the 1st week or so after stopping antibiotic therapy shoulder pain had improved. But now she has had recurrent swelling of the right shoulder. And now is having pain lifting her shoulder even with passive range of motion she reports the pain is an 8/10 in intensity. Pain is more so with lateral and deltoid movement of the shoulder and not some much when she is reaching forward. She has not had any associated fevers or chills. She does report swelling in fullness into the upper humerus area and across her clavicle. She denies any tenderness to palpation of her neck but does have some noted lymphadenopathy on exam. She reports that her doctor had stopped her insulin therapy in she has only been on weekly Trulicity. After recent follow-up with her physician and instructed her start checking her sugars more frequently. She reports that since she started checking her sugars again her glucoses have been running extremely high in most the time or just reading high on the glucometer. She had not color doctors to discuss this. She had a chronic foot wound that His sister helps her dress every couple of days. Is not been draining. The wound does not cause her any pain. She reports that she has been going to therapy to try did learn to walk with her prosthesis. Patient receives hemodialysis Friday and completed her dialysis on Friday. Review of Systems 2 Review of Systems: 12 systems were reviewed with pertinent positives and negatives per HPI. Except as documented in the HPI, all other systems were reviewed and are negative. [facility] Past Medical History Medical History Obstructive sleep apnea Patient has not had a formal polysomnogram but had positive ApneaLink August 2023 Septic arthritis of shoulder, left (05/2024) Diastolic heart failure secondary to hypertension EF 70% with grade 2 diastolic dysfunction echocardiogram August 2023 Anemia in chronic kidney disease End-stage renal disease on hemodialysis Hemodialysis initiated August 2023 Glaucoma Blind in both eyes (~03/2023) Occurred acutely March 2023 Nephrotic syndrome Diabetic neuropathy Hyperlipidemia Diabetic nephropathy with proteinuria Nephrotic range Chronic heel ulcer Chronic heel ulcer on the left foot developed November 2022 with acute decompensation and subsequent above the knee amputation, no unfortunately do developed a right heel ulcer the fall of 2022 that is been persistent CHF (congestive heart failure) Hypertension Diabetes mellitus Surgical History Surgical History (Updated 01/14/25 @ 04:39 by Nadia Coreas DO) Status post cataract extraction and insertion of intraocular lens of right eye Status post insertion of dialysis catheter (08/2023) Right subclavian History of left below knee amputation (~12/2022) Due to osteomyelitis Family History Family History Father Diabetes mellitus Hypertension Mother Hypertension Obesity Sibling Diabetes mellitus, Onset Age: 28 Sibling Unknown family medical history Does not see a doctor Diabetes mellitus Social History Social History Social History: The patient reports that until August 2022 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 Since August 2022 she moved in with her sister. She has had a severe significant decline in her health and December 2022had left above the knee amputation. She has been in out of correction and rehab facilities since that time. She is a lifelong nonsmoker. She used to rarely smoke marijuana. She had no significant alcohol use history. She does not have any children. Code status: DNR/DNI (per patient request) evidently during prior hospitalization when the patient became unresponsive family change the patient's code status back to (08/13/2023) full code. Surrogate decision maker: Nikkoedith Enrique (sister) Smoking status: Never smoker Additional smoking assessment comments: never smoked cigarettes Alcohol intake: never Drinks per week: 0 Substance use: former Substance use type: does not use Do You Feel Safe in your Home?: Yes Lack of Transportation: No Lack of Food: Never True Current Housing: I Have Housing Concerned About Future Housing: No Difficulty Paying Gas/Electric Bills: No Difficulty Paying for Meds: No Currently Unemployed: No Education: Grade School Difficulty w/ Childcare or Family Care: No Spiritual care concerns: No Meds Home Medications and Allergies Home Medications ?Medication ?Instructions ?Recorded ?Confirmed ?Type amlodipine 10 mg tablet 10 mg PO DAILY 08/04/23 01/14/25 History carvedilol 12.5 mg tablet 25 mg PO Q12H 08/04/23 01/14/25 History lisinopril 20 mg tablet 20 mg PO QAM 30 days #30 tabs 08/23/23 01/14/25 Rx bisacodyl 10 mg rectal suppository 10 mg RECTAL DAILY PRN Constipation 02/16/24 01/14/25 History tramadol 50 mg tablet 50 mg PO Q6H PRN Moderate Pain 02/16/24 01/14/25 History (Scale Score 5-6) acetaminophen 500 mg tablet 500 mg PO Q6H PRN Pain, Mild 05/16/24 01/14/25 History diphenhydramine HCl 25 mg capsule 25 mg PO Q8H PRN Itching 05/16/24 01/14/25 History furosemide 40 mg tablet 40 mg PO DAILY 05/16/24 01/14/25 History gabapentin 100 mg capsule 300 mg PO QMWF 05/16/24 01/14/25 History glucagon 1 mg injection kit 1 mg IM PRN PRN Hypoglycemia 05/16/24 01/14/25 History apixaban 5 mg tablet (Eliquis) 5 mg PO BID 11/10/24 01/14/25 History drospirenone (contraceptive) 4 mg 4 mg PO DAILY 11/10/24 01/14/25 History (28) tablet (Slynd) dulaglutide 1.5 mg/0.5 mL 1.5 mg subcut WEEKLY 01/14/25 01/14/25 History subcutaneous pen injector (Trulicity) ketorolac 0.5 % eye drops 1 drp RIGHT EYE Q6H 01/14/25 01/14/25 History ofloxacin 0.3 % eye drops 1 drp RIGHT EYE Q6H 01/14/25 01/14/25 History prednisolone acetate 1 % eye 1 drp RIGHT EYE Q6H 01/14/25 01/14/25 History drops,suspension Allergies Allergy/AdvReac Type Severity Reaction Status Date / Time No Known Allergies Allergy Verified 11/10/24 01:55 Vital Signs Vital Signs - 24 hr 01/13/25 20:00 01/13/25 20:00 01/13/25 20:00 Temperature 98.4 F Pulse Rate 85 85 Respiratory Rate 17 17 Blood Pressure 117/69 Pulse Oximetry 98 Oxygen Delivery Room Air 01/13/25 20:00 01/13/25 21:22 Temperature Pulse Rate 86 Respiratory Rate 18 Blood Pressure 122/80 Pulse Oximetry 98 100 Oxygen Delivery Room Air Exam 2 Narrative: Weight 123.4 kg Const: Other: obese, chronically ill-appearing, appears older stated age HENMT: Other: mucous membranes are tacky, no oral pharyngeal erythema, crowded posterior oropharynx, head is normocephalic atraumatic Eyes: Other: patient has chronic scarring to the left cornea / pupil with opacification of the globe, right eye demonstrates lens replacement and is minimally reactive, patient's eyes are deviated in upward gaze bilaterally, positive conjunctival pallor, no scleral icterus Neck: Other: large neck circumference, asymmetry to the lymph nodes of the neck in the anterior cervical chain right greater than left Chest: Other: Tunneled dialysis catheter in left chest with sutures in place but the line is no longer secured by the broken sutures Resp: Other: decreased breath sounds at the bases, no increased work of breathing Cardio: Other: regular rate, regular rhythm, 2+ bilateral radial pulses, 1+ right pedal pulse GI: Other: obese, nontender, positive bowel sounds Skin: Other: chronic decubitus wound to the right calcaneus, otherwise skin is cool to touch, no other open wounds noted, left above the knee amputation stump site in good condition Neuro: Other: alert oriented x4, speech is clear, no facial asymmetry, deviation of bilateral eyes upward with chronic pupillary changes, decreased sensation to the hands bilaterally and to the right foot consistent with hip patient's history of diabetic peripheral neuropathy Extrem: Other: above the knee amputation, chronic right calcaneus wound without evidence of drainage or surrounding erythema wound is clean and dry Psych: Other: depressed mood, flat affect, cooperative, poor judgment and insight H&P: Results Labs Labs: Laboratory Tests 01/13/25 21:15 01/13/25 21:15 01/13/25 01/13/25 21:15 21:15 WBC 9.0 RBC 3.61 L Hgb 10.5 L Hct 33.1 L MCV 91.7 MCH 29.1 MCHC 31.7 L RDW 14.0 Plt Count 369 MPV 10.0 Immature Gran % (Auto) 0.4 Neut % (Auto) 68.8 Lymph % (Auto) 18.8 [place] % (Auto) 7.2 Eos % (Auto) 4.5 H Baso % (Auto) 0.3 Lymph # (Auto) 1.68 [place] # (Auto) 0.6 Eos # (Auto) 0.4 H Baso # (Auto) 0.0 Abs Immat Gran (auto) 0.04 H Absolute Neuts (auto) 6.2 Absolute Nucleated RBC 0.000 Nucleated RBC % 0.0 VBG pH 7.366 VBG pCO2 41.5 L VBG pO2 41.0 VBG HCO3 23.2 L O2 Delivery Device Room air O2 Liters/Min Not Reportable FiO2 21 Sodium 130 L Potassium 3.6 Chloride 98 Carbon Dioxide 22 Anion Gap 10 BUN 24 H D Creatinine 4.83 H Estim Creat Clear Calc Not Reportable Estimated GFR 10 L Glucose 599 H* Calcium 8.6 Total Bilirubin 0.7 AST 15 ALT 13 Alkaline Phosphatase 306 H Total Protein 7.0 Albumin 3.4 L Beta-Hydroxybutyrate/Acetoacetate 0.20 TSH 3.780 Serum HCG, Qual Negative Salicylates < 1.0 L Acetaminophen < 10 L Ethyl Alcohol < 10 Influenza A (RT-PCR) Pending Influenza B (RT-PCR) Pending RSV (RT-PCR) Pending SARS-CoV-2 RNA (RT-PCR) Negative Pending Impressions Chest X-Ray 01/13/25 20:45 IMPRESSION: Bilateral pneumonia. Underlying pulmonary edema is not excluded. EKG: Personally reviewed interpreted demonstrated normal sinus rhythm rate of 83 QTC of 462 cardiology interpretation pending All imaging and EKGs personally reviewed and interpreted. And unless stated otherwise agree with radiologic and cardiology interpretation. Assessment and Plan Assessment and plan (1) Type 2 diabetes mellitus with hyperosmolar hyperglycemic state (HHS): Code(s): E11.00 - Type 2 diabetes mellitus with hyperosmolarity without nonketotic hyperglycemic-hyperosmolar coma (NKHHC) Status: Acute (2) Suicide attempt by drug overdose: Code(s): T50.902A - Poisoning by unspecified drugs, medicaments and biological substances, intentional self-harm, initial encounter Status: Acute (3) ESRD needing dialysis: Code(s): N18.6 - End stage renal disease; Z99.2 - Dependence on renal dialysis Status: Chronic (4) Chronic 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: Code(s): Z79.01 - adjunct faculty for medical terminology (current) use of 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 Status: Chronic Plan patient was admitted to the ICU for hyperglycemic nonketotic state. Patient responded extremely well to insulin drip and despite eating checked a box while on insulin drip patient's glucoses dropped from the 600s down to 200s with only 1 hour of treatment. It is thought that some of this response is due to patient's decreased excretion of insulin given her chronic kidney disease but also in part could be due to beta-zuleima toxicity with intentional overdose. The patient's blood pressures were relatively soft transiently in the ER. But by the time the patient arrived to the ICU in before glucagon could be administered patient's blood pressures had normalized. Patient's blood pressure at the time of documentation is 110/67. Patient has not been bradycardic. That is somewhat less likely as patient took a significant amount of Coreg given the number of pills left in her bottle but she also does have some history of nonadherence to medication regimen in could have more doses left of her antihypertensives than anticipated. Will monitor in ICU closely. director of food and nutrition is at bedside. Once medically stable patient will need evaluation by crisis. Given the patient's report of recurrent right shoulder pain and pain with both passive and active range of motion will check inflammatory markers and order CT of the right shoulder to rule out recurrent osteomyelitis/bursitis. Given lack of fevers and normal white count hopefully this is less likely. Will provide p.r.n. pain medications. Will hold off on antibiotic therapy at this time. Initially in the ER chest x-ray was suggestive of bilateral pneumonia. But given lack of fever and respiratory symptoms I feel this is less likely the case. I am more suspicious of patient having some pulmonary edema given her history of end-stage renal disease and dependence on hemodialysis. Subsequently antibiotics were not administered. Will obtain blood cultures to rule out underlying infection given the patient's chronic tunneled dialysis catheter in the left chest. By the time of the end of documentation patient had been weaned off of the insulin drip and glucose words were in the 150s. Will place patient on low-dose of Lantus and will provide moderate dose sliding scale insulin with Accu-Cheks a.c. HS and hypoglycemia protocol. 60 minute spent in critical care activities. Due to a high probability of clinically significant, life threatening deterioration, the patient required my highest level of preparedness to intervene emergently and I personally spent this critical care time directly and personally managing the patient. This critical care time included obtaining a history; examining the patient; pulse oximetry; ordering and review of studies; arranging urgent treatment with development of a management plan; evaluation of patient's response to treatment; frequent reassessment; and discussions with other providers. It was exclusive of separately billable procedures and treating other patients and teaching time. Please see Assessment and Plan section and the rest of the note for further information on patient assessment and treatment. Quality VTE Prophylaxis VTE prophylaxis: pharmacologic ordered (Continue home Eliquis) Hospitalist MIPS Advance Care Plan I have confirmed that the patient's Advanced Care Plan is present, code status is documented, or surrogate decision maker is listed in patient medical record.: Yes Medication Reconciliation I have utilized all available resources to obtain, update and review the patients current medications (includes all prescriptions, OTC, herbals, cannabis, and nutritional supplements).: Yes
[2025-01-14 01:06] LABS: Glucose Point of Care 229 mg/dl (65-105)
--- NOTE | 2025-01-14 01:16 | PC.NURSE ---
Due to pt drop of blood sugar in a span of an hour. Per MD Jacobo she verbally states to titrate pt insulin drip from 12 units to 4 units/hr. Titrated completed at this time.
--- NOTE | 2025-01-14 01:20 | PC.NURSE ---
0119 report received from JIMMIE Chopra.
--- NOTE | 2025-01-14 02:57 | ADMGEN ---
This patient, Gay Canales, was admitted to Intensive Care Unit-10. Patient/family oriented to hospital policies and general routines including ID bracelet, bed and alarms, visiting hours, pain management, procedures, bathroom and other care routines, personal items, smoking policy, room service/diet, and visiting hours. Information on how to activate the Rapid Response Team has been discussed. Patient/Family are encouraged to report perceived risks to care and to ask questions if they do not understand what they are told or what they should do.
[2025-01-14] MEDS: GLUCAGON FOR INJ 1 MG VIAL 5 MG IV PUSH (03:04)
[2025-01-14] MEDS: GLUCAGON FOR INJ 10 MG in DEXTROSE 5% 100 ML 30 MG IV CONT (03:12)
[2025-01-14 03:16] LABS: Basophils Percent Auto 0.3 % (0.2-1.2); Eosinophils Absolute Auto 0.4 K/mm3 (0-0.3); Hematocrit 30.5 % (37.0-47.0); Hemoglobin 9.7 g/dL (12.0-15.0); Immature Granulocyte Absolute 0.04 K/mm3 (0.00-0.031); Immature Granulocyte Percent A 0.4 % (0-0.5); Lymphocytes Absolute Auto 2.06 K/mm3 (0.9-3.2); Lymphocytes Percent Auto 21.6 % (18.3-44.2); Mean Corpuscular HGB Conc 31.8 g/dl (32-36); Mean Corpuscular Hemoglobin 29.4 pg (26-34); Mean Corpuscular Volume 92.4 fl (80-100); Monocytes Absolute Auto 1.1 K/mm3 (0.1-0.6); Monocytes Percent Auto 11.4 % (2.6-8.5); Neutrophils Absolute Auto 5.9 K/mm3 (1.3-6.7); Neutrophils Percent Auto 62.3 % (45.5-73.1); Platelet Count Result 364 k/mm3 (150-375); Red Cell Distribution Width 14.1 % (11.5-14.5); White Blood Count 9.5 K/mm3 (4.5-10.0)
[2025-01-14 03:23] LABS: Glucose Point of Care 157 mg/dl (65-105)
[2025-01-14 03:26] LABS: Lactic Acid Reflex 1.9 mmol/L (0.7-2.0)
[2025-01-14 03:30] LABS: Alanine Aminotransferase 13 U/L (6-35); Albumin Level 3.3 g/dL (3.5-5.1); Alkaline Phosphatase 263 U/L (38-126); Anion Gap 12 mmol/L (4-12); Aspartate Amino Transferase 13 U/L (14-36); Bilirubin,Total 0.6 mg/dL (0.2-1.3); Blood Urea Nitrogen 23 mg/dL (7-17); CRP 1.2 mg/dL (<1.0); Calcium 8.8 mg/dL (8.4-10.2); Carbon Dioxide 20 mmol/L (22-30); Chloride 106 mmol/L (98-107); Estimated CRCL calculation 20 ml/min; Estimated Glomerular Filt Rate 10; Glucose 153 mg/dL (65-110); Potassium 3.9 mmol/L (3.4-5.0); Sodium 138 mmol/L (137-145)
[2025-01-14 03:44] LABS: Procalcitonin 0.2 ng/mL
[2025-01-14 03:53] LABS: Erythrocyte Sedimentation Rate 57 mm/hr (0-20)
[2025-01-14 05:52] LABS: Glucose Point of Care 185 mg/dl (65-105)
[2025-01-14 05:52] LABS: Glucose Point of Care 166 mg/dl (65-105)
[2025-01-14 06:38] LABS: Anion Gap 9 mmol/L (4-12); Blood Urea Nitrogen 23 mg/dL (7-17); Calcium 8.5 mg/dL (8.4-10.2); Carbon Dioxide 21 mmol/L (22-30); Chloride 107 mmol/L (98-107); Estimated CRCL calculation 20 ml/min; Estimated Glomerular Filt Rate 10; Glucose 206 mg/dL (65-110); Potassium 4.3 mmol/L (3.4-5.0); Sodium 137 mmol/L (137-145)
[2025-01-14 08:14] LABS: Glucose Point of Care 260 mg/dl (65-105)
[2025-01-14] MEDS: APIXABAN 5 MG TABLET PO ×2 (08:28→20:25)
[2025-01-14] MEDS: INSULIN ASPART (*BKC) 100 UNITS/ML SUB-Q ×3 (08:28→17:18)
[2025-01-14] MEDS: FUROSEMIDE 40 MG TABLET PO (08:28)
[2025-01-14] MEDS: prednisoLONE ACETATE 1% OPHTH 5 ML 1 DROP RIGHT EYE ×3 (08:29→17:16)
[2025-01-14] MEDS: OFLOXACIN 0.3% OPHTH SOLN 5 ML BTL 1 DROP RIGHT EYE ×3 (08:29→17:16)
[2025-01-14] MEDS: KETOROLAC 0.5% OP SOLN 5 ML BOTTLE 1 DROP RIGHT EYE ×3 (08:30→17:16)
[2025-01-14] MEDS: traMADol HCL (*CRX) 50 MG TABLET PO (08:35)
--- NOTE | 2025-01-14 08:44 | PC.NURSE ---
[address] [facility] sister. Updated on patient condition.
[2025-01-14 11:10] LABS: Anion Gap 9 mmol/L (4-12); Blood Urea Nitrogen 24 mg/dL (7-17); Calcium 8.6 mg/dL (8.4-10.2); Carbon Dioxide 20 mmol/L (22-30); Chloride 107 mmol/L (98-107); Estimated CRCL calculation 20 ml/min; Estimated Glomerular Filt Rate 10; Glucose 279 mg/dL (65-110); Potassium 4.2 mmol/L (3.4-5.0); Sodium 136 mmol/L (137-145)
[2025-01-14 11:37] LABS: MRSA (PCR) NOT DETECTED (NOT DETECTE)
[2025-01-14] MEDS: ONDANSETRON INJ 4 MG/2 ML VIAL IV PUSH (11:46)
[2025-01-14] MEDS: HYDROmorphone HCL INJ (*CRX) 1 MG/ML SYR 0.5 MG IV PUSH ×3 (11:46→22:24)
[2025-01-14 11:51] LABS: Glucose Point of Care 273 mg/dl (65-105)
--- NOTE | 2025-01-14 11:56 | PCFNICU ---
ICU Rounding Note: Pt current nutrition is DBCC. Last recorded weight is 120.7 kg. Bowel Motility: Last reported BM 01/13 Labs Reviewed:PO4 4.6, BUN 23, Cr 5.11, Glu 206, Alb 3.3 Meds Noted:Lantus, NovoLog, Eliquis, Lasix. Skin: Right heel wound-wound consult, Left AKA Additional Notes: Patient current with Diabetic Consistent carb diet. Intake > 75% of meals. No reported weight loss or poor po intake. Agree with diet orders. Following daily in ICU rounds.
--- NOTE | 2025-01-14 12:18 | P.CONNP_ITS ---
Assessment and Plan Assessment and plan (1) End stage chronic kidney disease: Code(s): N18.6 - End stage renal disease Status: Acute Assessment and Plan: The patient has end-stage renal disease. She has been on dialysis for a little more than a year. She is managed by Dr. Millan at the dialysis unit. Her treatments have been going well. She is due today. She has no shortness of breath and her potassium is fine. I do not think we need to dialyze her today. We have several emergencies which would lead to her getting her dialysis at about midnight so will just wait until the morning. Discussed with Dr Gomez (2) Suicide attempt: Code(s): T14.91XA - Suicide attempt, initial encounter Status: Acute Assessment and Plan: The patient took carvedilol. It is unclear how many she took. It seems that she took them sometime yesterday afternoon. She got to the emergency room at around 8pm. Her blood pressure is still doing fairly well, in the normal range. Her pulse is normal She has a sitter observing her now and is on a heart monitor. (3) Hyperglycemia without ketosis: Code(s): R73.9 - Hyperglycemia, unspecified Status: Acute Assessment and Plan: Sugars were very high early on this has come down. (4) Type 2 diabetes mellitus with hyperosmolar hyperglycemic state (HHS): Code(s): E11.00 - Type 2 diabetes mellitus with hyperosmolarity without nonketotic hyperglycemic-hyperosmolar coma (NKHHC) Status: Acute Assessment and Plan: Management per hospitalist/android programmer. 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 Code(s): H54.3 - Unqualified visual loss, both eyes Status: Chronic (6) Anemia: Code(s): D64.9 - Anemia, unspecified Status: Chronic Assessment and Plan: Hemoglobin is 9.7. Will give Epogen with dialysis tomorrow (7) Hypertension: Code(s): I10 - Essential (primary) hypertension Status: Chronic Assessment and Plan: Blood pressure is doing well History of Present Illness Reason for Consult Consult date: 01/14/25 Chief Complaint Chief complaint: Intentional overdose of unknown substance, ESRD, History of Present Illness Narrative: Gay is a very pleasant 34-year-old lady who has end-stage renal disease on dialysis 3 times a week on Wednesdays and Fridays. She also has hypertension, diabetes, glaucoma, neuropathy, hyperlipidemia, obstructive sleep apnea diagnosed by apnea link but has not had a formal sleep test, diastolic dysfunction, congestive heart failure, left [id number] amputation, hyperlipidemia, anemia, renal osteodystrophy. Here at has had stress is recently including loss of vision. The patient took several pills which turned out to be carvedilol but it is unclear how many she took. She can see the bowel but did hide the bottle under her pillow and her family was able to retrieve the bottle. Upon arrival her blood sugar was very high. She was placed on insulin drip which rapidly improved her sugar so now she is off the drip. Patient is in the ICU because of the insulin drip but also because of the suicide precautions. Currently the patient is calm and comfortable. She has no shortness of breath or chest pain. Review of Systems 2 Constitutional: Constitutional: Reports no additional constitutional complaints Eyes: Eyes: Reports no additional eye complaints ENT: Reports system reviewed and no additional complaints, except as documented Cardiovascular: Cardiovascular: Reports no additional cardiovascular complaints Respiratory: Respiratory: Reports no additional respiratory complaints Gastrointestinal: Gastrointestinal: Reports no additional gastrointestinal complaints Genitourinary: Genitourinary: Reports no additional female genitourinary complaints Musculoskeletal: Musculoskeletal: Reports no additional musculoskeletal complaints Integumentary/Breasts: Skin/Breast: Reports system reviewed and no additional complaints, except as docu Neurologic: Reports system reviewed and no additional complaints, except as documented Psychiatric: Psychiatric: Reports no additional psychiatric complaints Endocrine: Endocrine: Reports no additional endocrine complaints [facility] Past Medical History Medical History Septic arthritis of shoulder, left (05/2024) Diastolic heart failure secondary to hypertension EF 70% with grade 2 diastolic dysfunction echocardiogram August 2023 Anemia in chronic kidney disease End-stage renal disease on hemodialysis Hemodialysis initiated August 2023 Glaucoma Blind in both eyes (~03/2023) Occurred acutely March 2023 Nephrotic syndrome Diabetic neuropathy Hyperlipidemia Obstructive sleep apnea Patient has not had a formal polysomnogram but had positive ApneaLink August 2023 Diabetic nephropathy with proteinuria Nephrotic range Chronic heel ulcer Chronic heel ulcer on the left foot developed November 2022 with acute decompensation and subsequent above the knee amputation, no unfortunately do developed a right heel ulcer the fall of 2022 that is been persistent CHF (congestive heart failure) Hypertension Diabetes mellitus Surgical History Surgical History Status post cataract extraction and insertion of intraocular lens of right eye Status post insertion of dialysis catheter (08/2023) Right subclavian History of left below knee amputation (~12/2022) Due to osteomyelitis Family History Family History Father Diabetes mellitus Hypertension Mother Hypertension Obesity Sibling Diabetes mellitus, Onset Age: 28 Sibling Unknown family medical history Does not see a doctor Diabetes mellitus Social History Social History Social History: The patient reports that 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 Since August 2022 she moved in with her sister. She has had a severe significant decline in her health and December 2022had left above the knee amputation. She has been in out of senior care and rehab facilities since that time. She is a lifelong nonsmoker. She used to rarely smoke marijuana. She had no significant alcohol use history. She does not have any children. Code status: DNR/DNI (per patient request) evidently during prior hospitalization when the patient became unresponsive family change the patient's code status back to (08/13/2023) full code. Surrogate decision maker: Kianna Nunez (sister) Smoking status: Never smoker Additional smoking assessment comments: never smoked cigarettes Alcohol intake: never Drinks per week: 0 Substance use: former Substance use type: does not use Do You Feel Safe in your Home?: Yes Lack of Transportation: No Lack of Food: Never True Current Housing: I Have Housing Concerned About Future Housing: No Difficulty Paying Gas/Electric Bills: No Difficulty Paying for Meds: No Currently Unemployed: No Education: Grade School Difficulty w/ Childcare or Family Care: No Spiritual care concerns: No Meds Home Medications and Allergies Home Medications ?Medication ?Instructions ?Recorded ?Confirmed ?Type amlodipine 10 mg tablet 10 mg PO DAILY 08/04/23 01/14/25 History carvedilol 12.5 mg tablet 25 mg PO Q12H 08/04/23 01/14/25 History lisinopril 20 mg tablet 20 mg PO QAM 30 days #30 tabs 08/23/23 01/14/25 Rx bisacodyl 10 mg rectal suppository 10 mg RECTAL DAILY PRN Constipation 02/16/24 01/14/25 History tramadol 50 mg tablet 50 mg PO Q6H PRN Moderate Pain 02/16/24 01/14/25 History (Scale Score 5-6) acetaminophen 500 mg tablet 500 mg PO Q6H PRN Pain, Mild 05/16/24 01/14/25 History diphenhydramine HCl 25 mg capsule 25 mg PO Q8H PRN Itching 05/16/24 01/14/25 History furosemide 40 mg tablet 40 mg PO DAILY 05/16/24 01/14/25 History gabapentin 100 mg capsule 300 mg PO QMWF 05/16/24 01/14/25 History glucagon 1 mg injection kit 1 mg IM PRN PRN Hypoglycemia 05/16/24 01/14/25 History apixaban 5 mg tablet (Eliquis) 5 mg PO BID 11/10/24 01/14/25 History drospirenone (contraceptive) 4 mg 4 mg PO DAILY 11/10/24 01/14/25 History (28) tablet (Slynd) dulaglutide 1.5 mg/0.5 mL 1.5 mg subcut WEEKLY 01/14/25 01/14/25 History subcutaneous pen injector (Trulicity) ketorolac 0.5 % eye drops 1 drp RIGHT EYE Q6H 01/14/25 01/14/25 History ofloxacin 0.3 % eye drops 1 drp RIGHT EYE Q6H 01/14/25 01/14/25 History prednisolone acetate 1 % eye 1 drp RIGHT EYE Q6H 01/14/25 01/14/25 History drops,suspension Allergies Allergy/AdvReac Type Severity Reaction Status Date / Time hydrocodone Allergy Mild Hives Verified 01/14/25 08:27 oxycodone Allergy Mild Hives Verified 01/14/25 08:27 Vital Signs Vital Signs - 24 hr 01/13/25 20:00 01/13/25 20:00 01/13/25 20:00 Temperature 98.4 F Pulse Rate 85 85 Respiratory Rate 17 17 Blood Pressure 117/69 Pulse Oximetry 98 Oxygen Delivery Room Air 01/13/25 20:00 01/13/25 21:22 01/14/25 00:29 Temperature Pulse Rate 86 84 Respiratory Rate 18 21 H Blood Pressure 122/80 110/67 Pulse Oximetry 98 100 100 Oxygen Delivery Room Air 01/14/25 04:00 01/14/25 04:00 01/14/25 04:00 Temperature 98.3 F Pulse Rate 82 82 82 Respiratory Rate 17 17 Blood Pressure 103/56 L Pulse Oximetry 99 99 Oxygen Delivery Room Air 01/14/25 06:00 01/14/25 06:00 01/14/25 09:23 Temperature Pulse Rate 82 82 Respiratory Rate 17 Blood Pressure 122/75 Pulse Oximetry 100 100 Oxygen Delivery Room Air Exam 2 Narrative: Exam Narrative: Well developed well-nourished female in no acute distress Skin is warm and dry without rash Head normocephalic atraumatic Eyes legally blind Mouth normal lips teeth and gums Neck no nodes no thyromegaly no carotid bruits Axillae no nodes Back no CVA tenderness Lungs symmetric and clear to auscultation and percussion Heart regular rate and rhythm without rub or gallop Abdomen bowel sounds positive soft nontender, no HSM, masses, or bruits. Extremities no cyanosis, clubbing, or edema Pulses 2+ equal in radial arteries Psychological not anxious or depressed Neuro alert and oriented x3 motor 5/5 cranial nerves 2-12 intact reflexes 2+ and equal in the biceps and patellar tendons cerebellar normal rapid alternating movements Results Lab Results 01/14/25 03:08 01/14/25 10:33 Lab results: Most recent lab results Calcium 8.6 mg/dL (8.4-10.2) 01/14/25 10:33 Phosphorus 4.6 mg/dL (2.5-4.5) H 01/13/25 23:30 Magnesium 2.0 mg/dL (1.6-2.3) 01/13/25 23:30
--- NOTE | 2025-01-14 13:29 | WPDCNINT ---
Assessment and Plan Assessment and plan (1) Suicide attempt by drug overdose: Code(s): T50.902A - Poisoning by unspecified drugs, medicaments and biological substances, intentional self-harm, initial encounter Status: Acute Assessment and Plan: Patient presented with suicide attempt and behavior, suggested known amount of possible Coreg -more hypotension, bradycardia hypoglycemia -hemodynamically stable -continue to monitor -bedside sitter in place -suicide precaution -once she is medically stable will have care coordination and crisis management team evaluate the patient (2) Hyperglycemia without ketosis: Code(s): R73.9 - Hyperglycemia, unspecified Status: Acute Assessment and Plan: Hyperglycemia, nonketotic, hyperosmolar hyperglycemic state -patient was on insulin infusion briefly which is currently stopped -continue Lantus and sliding scale insulin -hemoglobin A1c > 14 -early childhood special educator and dietitian to evaluate the patient (3) End-stage renal disease on hemodialysis: Code(s): N18.6 - End stage renal disease; Z99.2 - Dependence on renal dialysis Status: Acute Assessment and Plan: End-stage renal disease, on dialysis (Mondays, Wednesdays, Fridays) -nephrology has been consulted -dialysis per Nephrology (4) Hypertension: Code(s): I10 - Essential (primary) hypertension Status: Chronic Assessment and Plan: History of hypertension, will restart amlodipine, Lasix, lisinopril (5) Chronic 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: Code(s): Z79.01 - custodial (current) use of 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 Status: Chronic Assessment and Plan: Chronic 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 with apixaban Plan DVT prophylaxis: Apixaban Stress ulcer prophylaxis: Not indicated Nutrition: Diabetic diet Code Status: Full code Critical Care Time Spent: 48 minutes Due to a high probability of clinically significant, life threatening deterioration, the patient required my highest level of preparedness to intervene emergently and I personally spent this critical care time directly and personally managing the patient. This critical care time included obtaining a history; examining the patient; pulse oximetry; ordering and review of studies; arranging urgent treatment with development of a management plan; evaluation of patient's response to treatment; frequent reassessment; and discussions with other providers. It was exclusive of separately billable procedures and treating other patients and teaching time. Please see Assessment and Plan section and the rest of the note for further information on patient assessment and treatment This dictation may have been done utilizing a voice recognition system. Attempts have been made to correct errors. However, there may be uncorrected grammatical, spelling, and recognitions errors present. Tack Cutter Consult Note Consult date: 01/14/25 Reason for consult: Intentional overdose, hyperglycemia HPI: Gay Canales is a 34 year old female with past medical history of obstructive sleep apnea, septic arthritis and osteomyelitis of the right shoulder, anemia of chronic disease, end-stage renal disease on hemodialysis, Mondays, Wednesdays, Fridays. History of diabetic neuropathy, diabetic retinopathy, chronic diabetic right heel ulcer, diabetes, left AKA, hypertension presented the ED on 01/13/2025 after ingesting unknown amount of 1 of her medications. Patient did have suicidal behavior. Patient is not know which medication she took. She did verbalize in the ER that she does not want to be any my she is tired of life. She has a history of prior suicide attempts also. According to the night hospitalist all questions 8 the patient and she revealed that was likely Coreg that she took several doses of. Patient was not bradycardic, hypotensive. She was instead hyperglycemic with blood sugar of 599. Patient was started on insulin infusion and transferred to the ICU for further management. She was of the insulin infusion upon arrival to the ICU. Currently on sliding scale insulin and Accu-Cheks 01/14/2025: Patient seen and examined the ICU, is awake, alert, oriented, complains of right shoulder pain. Denies any shortness of breath, chest pain, nausea, vomiting at this time. Blood sugars are in the 200s. Patient continues to make urine, afebrile. Review of Systems Review of Systems: All systems reviewed & are unremarkable except as noted in HPI and below PMFSH Past Medical History Medical History Septic arthritis of shoulder, left (05/2024) Diastolic heart failure secondary to hypertension EF 70% with grade 2 diastolic dysfunction echocardiogram August 2023 Anemia in chronic kidney disease End-stage renal disease on hemodialysis Hemodialysis initiated August 2023 Glaucoma Blind in both eyes (~03/2023) Occurred acutely March 2023 Nephrotic syndrome Diabetic neuropathy Hyperlipidemia Obstructive sleep apnea Patient has not had a formal polysomnogram but had positive ApneaLink August 2023 Diabetic nephropathy with proteinuria Nephrotic range Chronic heel ulcer Chronic heel ulcer on the left foot developed November 2022 with acute decompensation and subsequent above the knee amputation, no unfortunately do developed a right heel ulcer the fall of 2022 that is been persistent CHF (congestive heart failure) Hypertension Diabetes mellitus Surgical History Surgical History Status post cataract extraction and insertion of intraocular lens of right eye Status post insertion of dialysis catheter (08/2023) Right subclavian History of left below knee amputation (~12/2022) Due to osteomyelitis Family History Family History Father Diabetes mellitus Hypertension Mother Hypertension Obesity Sibling Diabetes mellitus, Onset Age: 28 Sibling Unknown family medical history Does not see a doctor Diabetes mellitus Social History Social History Social History: The patient reports that 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 Since August 2022 she moved in with her sister. She has had a severe significant decline in her health and December 2022had left above the knee amputation. She has been in out of longterm and rehab facilities since that time. She is a lifelong nonsmoker. She used to rarely smoke marijuana. She had no significant alcohol use history. She does not have any children. Code status: DNR/DNI (per patient request) evidently during prior hospitalization when the patient became unresponsive family change the patient's code status back to (08/13/2023) full code. Surrogate decision maker: Kianna Nunez (sister) Smoking status: Never smoker Additional smoking assessment comments: never smoked cigarettes Alcohol intake: never Drinks per week: 0 Substance use: former Substance use type: does not use Do You Feel Safe in your Home?: Yes Lack of Transportation: No Lack of Food: Never True Current Housing: I Have Housing Concerned About Future Housing: No Difficulty Paying Gas/Electric Bills: No Difficulty Paying for Meds: No Currently Unemployed: No Education: Grade School Difficulty w/ Childcare or Family Care: No Spiritual care concerns: No Meds Home Medications and Allergies Home Medications ?Medication ?Instructions ?Recorded ?Confirmed ?Type amlodipine 10 mg tablet 10 mg PO DAILY 08/04/23 01/14/25 History carvedilol 12.5 mg tablet 25 mg PO Q12H 08/04/23 01/14/25 History lisinopril 20 mg tablet 20 mg PO QAM 30 days #30 tabs 08/23/23 01/14/25 Rx bisacodyl 10 mg rectal suppository 10 mg RECTAL DAILY PRN Constipation 02/16/24 01/14/25 History tramadol 50 mg tablet 50 mg PO Q6H PRN Moderate Pain 02/16/24 01/14/25 History (Scale Score 5-6) acetaminophen 500 mg tablet 500 mg PO Q6H PRN Pain, Mild 05/16/24 01/14/25 History diphenhydramine HCl 25 mg capsule 25 mg PO Q8H PRN Itching 05/16/24 01/14/25 History furosemide 40 mg tablet 40 mg PO DAILY 05/16/24 01/14/25 History gabapentin 100 mg capsule 300 mg PO QMWF 05/16/24 01/14/25 History glucagon 1 mg injection kit 1 mg IM PRN PRN Hypoglycemia 05/16/24 01/14/25 History apixaban 5 mg tablet (Eliquis) 5 mg PO BID 11/10/24 01/14/25 History drospirenone (contraceptive) 4 mg 4 mg PO DAILY 11/10/24 01/14/25 History (28) tablet (Slynd) dulaglutide 1.5 mg/0.5 mL 1.5 mg subcut WEEKLY 01/14/25 01/14/25 History subcutaneous pen injector (Trulicity) ketorolac 0.5 % eye drops 1 drp RIGHT EYE Q6H 01/14/25 01/14/25 History ofloxacin 0.3 % eye drops 1 drp RIGHT EYE Q6H 01/14/25 01/14/25 History prednisolone acetate 1 % eye 1 drp RIGHT EYE Q6H 01/14/25 01/14/25 History drops,suspension Allergies Allergy/AdvReac Type Severity Reaction Status Date / Time hydrocodone Allergy Mild Hives Verified 01/14/25 08:27 oxycodone Allergy Mild Hives Verified 01/14/25 08:27 Vital Signs Vital Signs - 24 hr 01/13/25 20:00 01/13/25 20:00 01/13/25 20:00 Temperature 98.4 F Pulse Rate 85 85 Respiratory Rate 17 17 Blood Pressure 117/69 Pulse Oximetry 98 Oxygen Delivery Room Air 01/13/25 20:00 01/13/25 21:22 01/14/25 00:29 Temperature Pulse Rate 86 84 Respiratory Rate 18 21 H Blood Pressure 122/80 110/67 Pulse Oximetry 98 100 100 Oxygen Delivery Room Air 01/14/25 04:00 01/14/25 04:00 01/14/25 04:00 Temperature 98.3 F Pulse Rate 82 82 82 Respiratory Rate 17 17 Blood Pressure 103/56 L Pulse Oximetry 99 99 Oxygen Delivery Room Air 01/14/25 06:00 01/14/25 06:00 01/14/25 09:23 Temperature Pulse Rate 82 82 Respiratory Rate 17 Blood Pressure 122/75 Pulse Oximetry 100 100 Oxygen Delivery Room Air Exam Narrative: General: Pleasant female complains of right shoulder pain HEENT:? People the reactive, sclera is clear Neck:? Supple Respiratory:? Coarse breath sounds bilaterally, decreased at bases Cardiac:? S1-S2 normal, regular rate and rhythm Abdomen:? Soft, nontender, nondistended, normoactive bowel sounds Extremities:? Left AKA, Neuro:? Patient is awake, alert, oriented, nonfocal Skin:? right heel diabetic ulcer with clear margins, no tunneling or exposure of bone. No erythema. In the right lower extremity chronic venous stasis changes Psych:? Depressed mood and affect Results Labs 01/14/25 03:08 01/14/25 10:33 Labs: Short CBC 01/13/25 01/14/25 Range/Units 21:15 03:08 WBC 9.0 9.5 (4.5-10.0) K/mm3 Hgb 10.5 L 9.7 L (12.0-15.0) g/dL Hct 33.1 L 30.5 L (37.0-47.0) % Plt Count 369 364 (150-375) k/mm3 BMP 01/13/25 01/13/25 01/14/25 21:15 23:30 03:08 Sodium 130 L 132 L 138 Potassium 3.6 3.4 3.9 Chloride 98 102 106 Carbon Dioxide 22 19 L 20 L BUN 24 H D 23 H 23 H Creatinine 4.83 H 4.68 H 4.97 H Glucose 599 H* 503 H* 153 H Calcium 8.6 8.1 L 8.8 01/14/25 01/14/25 06:22 10:33 Sodium 137 136 L Potassium 4.3 4.2 Chloride 107 107 Carbon Dioxide 21 L 20 L BUN 23 H 24 H Creatinine 5.11 H 5.10 H Glucose 206 H 279 H Calcium 8.5 8.6 Liver Function 01/13/25 01/14/25 Range/Units 21:15 03:08 Total Bilirubin 0.7 0.6 (0.2-1.3) mg/dL AST 15 13 L (14-36) U/L ALT 13 13 (6-35) U/L Alkaline Phosphatase 306 H 263 H (38-126) U/L Albumin 3.4 L 3.3 L (3.5-5.1) g/dL Quality VTE Prophylaxis VTE prophylaxis: pharmacologic ordered Hospitalist MIPS Advance Care Plan I have confirmed that the patient's Advanced Care Plan is present, code status is documented, or surrogate decision maker is listed in patient medical record.: Yes Medication Reconciliation I have utilized all available resources to obtain, update and review the patients current medications (includes all prescriptions, OTC, herbals, cannabis, and nutritional supplements).: Yes
[2025-01-14 15:55] LABS: Anion Gap 10 mmol/L (4-12); Blood Urea Nitrogen 24 mg/dL (7-17); Calcium 8.2 mg/dL (8.4-10.2); Carbon Dioxide 20 mmol/L (22-30); Chloride 105 mmol/L (98-107); Estimated CRCL calculation 19 ml/min; Estimated Glomerular Filt Rate 9; Glucose 348 mg/dL (65-110); Potassium 4.2 mmol/L (3.4-5.0); Sodium 135 mmol/L (137-145)
[2025-01-14 16:56] LABS: Glucose Point of Care 342 mg/dl (65-105)
[2025-01-14] MEDS: INSULIN GLARGINE (*BKC) 100 UNITS/ML 25 UNITS SUB-Q (17:16)
[2025-01-14] MEDS: diphenhydrAMINE HCL ELIXIR 12.5 MG/5 ML UDC 25 MG PO (17:19)
[2025-01-14 17:23] LABS: Amphetamine Screen Urine Negative (Negative); Barbiturate Screen Urine Negative (Negative); Benzodiazepines Screen Urine Negative (Negative); Cannabinoid Screen Urine Negative (Negative); Cocaine Screen Urine Negative (Negative); Methadone Screen Urine Negative (Negative); Opiate Screen Urine Negative (Negative); Phencyclidine Screen Urine Negative (Negative)
[2025-01-14 18:53] LABS: Anion Gap 9 mmol/L (4-12); Blood Urea Nitrogen 25 mg/dL (7-17); Calcium 8.2 mg/dL (8.4-10.2); Carbon Dioxide 19 mmol/L (22-30); Chloride 106 mmol/L (98-107); Estimated CRCL calculation 19 ml/min; Estimated Glomerular Filt Rate 9; Glucose 368 mg/dL (65-110); Potassium 4.1 mmol/L (3.4-5.0); Sodium 134 mmol/L (137-145)
[2025-01-15] VITALS (26 sets, daily range): BP systolic 89–157; BP diastolic 62–109; PULSE 83–93; RESP 12–19; TEMP 36.4–37; O2SAT 94–100
[2025-01-15] MEDS: prednisoLONE ACETATE 1% OPHTH 5 ML 1 DROP RIGHT EYE ×5 (00:22→23:28)
[2025-01-15] MEDS: OFLOXACIN 0.3% OPHTH SOLN 5 ML BTL 1 DROP RIGHT EYE ×5 (00:22→23:28)
[2025-01-15] MEDS: KETOROLAC 0.5% OP SOLN 5 ML BOTTLE 1 DROP RIGHT EYE ×5 (00:22→23:28)
[2025-01-15 02:01] LABS: Glucose Point of Care 368 mg/dl (65-105)
[2025-01-15] MEDS: HYDROmorphone HCL INJ (*CRX) 1 MG/ML SYR 0.5 MG IV PUSH ×4 (05:10→23:29)
[2025-01-15 07:15] LABS: Basophils Absolute Auto 0.1 K/mm3 (0.0-0.1); Basophils Percent Auto 0.6 % (0.2-1.2); Eosinophils Absolute Auto 0.7 K/mm3 (0-0.3); Eosinophils Percent Auto 7.5 % (0-4.4); Hematocrit 33.7 % (37.0-47.0); Hemoglobin 10.4 g/dL (12.0-15.0); Immature Granulocyte Absolute 0.04 K/mm3 (0.00-0.031); Immature Granulocyte Percent A 0.4 % (0-0.5); Lymphocytes Absolute Auto 1.92 K/mm3 (0.9-3.2); Lymphocytes Percent Auto 21.5 % (18.3-44.2); Mean Corpuscular HGB Conc 30.9 g/dl (32-36); Mean Corpuscular Hemoglobin 29.5 pg (26-34); Mean Corpuscular Volume 95.5 fl (80-100); Mean Platelet Volume 9.9 fl (7.4-10.4); Monocytes Absolute Auto 0.6 K/mm3 (0.1-0.6); Monocytes Percent Auto 6.3 % (2.6-8.5); Neutrophils Absolute Auto 5.7 K/mm3 (1.3-6.7); Neutrophils Percent Auto 63.7 % (45.5-73.1); Platelet Count Result 382 k/mm3 (150-375); Red Blood Count 3.53 M/mm3 (4.2-5.4); Red Cell Distribution Width 14.5 % (11.5-14.5); White Blood Count 8.9 K/mm3 (4.5-10.0)
[2025-01-15 07:37] LABS: Alanine Aminotransferase 13 U/L (6-35); Albumin Level 3.2 g/dL (3.5-5.1); Alkaline Phosphatase 254 U/L (38-126); Anion Gap 9 mmol/L (4-12); Aspartate Amino Transferase 14 U/L (14-36); Bilirubin,Total 0.3 mg/dL (0.2-1.3); Blood Urea Nitrogen 26 mg/dL (7-17); Calcium 8.5 mg/dL (8.4-10.2); Carbon Dioxide 20 mmol/L (22-30); Chloride 107 mmol/L (98-107); Estimated CRCL calculation 18 ml/min; Estimated Glomerular Filt Rate 9; Glucose 379 mg/dL (65-110); Phosphorus 4.6 mg/dL (2.5-4.5); Potassium 4.6 mmol/L (3.4-5.0); Sodium 136 mmol/L (137-145)
[2025-01-15 07:38] LABS: Lactic Acid Reflex 1.1 mmol/L (0.7-2.0)
[2025-01-15 07:44] LABS: Glucose Point of Care 347 mg/dl (65-105)
[2025-01-15] MEDS: INSULIN ASPART (*BKC) 100 UNITS/ML SUB-Q ×4 (07:49→20:33)
[2025-01-15] MEDS: INSULIN GLARGINE (*BKC) 100 UNITS/ML 25 UNITS SUB-Q (07:50)
[2025-01-15] MEDS: FUROSEMIDE 40 MG TABLET PO (08:14)
[2025-01-15] MEDS: APIXABAN 5 MG TABLET PO ×2 (08:14→20:33)
[2025-01-15] MEDS: LORATADINE 10 MG TABLET PO (08:15)
--- NOTE | 2025-01-15 08:28 | PC.NURSE ---
25 units of lantus given, new order for 45 units daily. Received order from Dr Gomez to reschedule 45 unit daily order to start tomorrow and to place a one time order for 20 units of lantus to make a total of 45 units administered this morning.
[2025-01-15] MEDS: INSULIN GLARGINE (*BKC) 100 UNITS/ML 20 UNITS SUB-Q (09:26)
[2025-01-15] MEDS: ONDANSETRON INJ 4 MG/2 ML VIAL IV PUSH (09:33)
[2025-01-15] MEDS: EPOETIN ALFA-EPBX 10,000 UNITS/ML VIAL 10000 UNITS IV PUSH (10:36)
--- NOTE | 2025-01-15 11:20 | P.PNNP_ITS ---
Progress Note: A&P Assessment and Plan (1) End stage chronic kidney disease: Code(s): N18.6 - End stage renal disease Status: Acute Assessment and Plan: The patient has end-stage renal disease. She has been on dialysis for a little more than a year. She is managed by Dr. Millan at the dialysis unit. Her treatments have been going well At the dialysis unit. Her dialysis is underway today. Will continue on Wednesdays and Fridays (2) Suicide attempt: Code(s): T14.91XA - Suicide attempt, initial encounter Status: Acute Assessment and Plan: The patient took carvedilol. It is unclear how many she took. blood pressures and pulse measurements were okay overnight. (3) Hyperglycemia without ketosis: Code(s): R73.9 - Hyperglycemia, unspecified Status: Acute Assessment and Plan: Sugars were very high early on this has come down and a ranging from 100-400 (4) Type 2 diabetes mellitus with hyperosmolar hyperglycemic state (HHS): Code(s): E11.00 - Type 2 diabetes mellitus with hyperosmolarity without nonketotic hyperglycemic-hyperosmolar coma (N[facility]) Status: Acute Assessment and Plan: Management per hospitalist/seating and mobility technologist. 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 will get Epogen today (7) Hypertension: Code(s): I10 - Essential (primary) hypertension Status: Chronic Assessment and Plan: Blood pressure is doing well Subjective Date/time seen: 01/15/25 11:20 Interval history: Gay is on dialysis. She is tolerating this well. She has itching. Review of Systems Cardiovascular: Cardiovascular: Reports no additional cardiovascular complaints Respiratory: Respiratory: Reports no additional respiratory complaints Gastrointestinal: Gastrointestinal: Reports no additional gastrointestinal complaints Genitourinary: Genitourinary: Reports no additional female genitourinary complaints Exam Narrative: WDWN in NAD skin no rash head ncat lungs clear cor reg no rub abd BS+ nontender and soft ext no edema. Objective Data Vital Signs Vital Signs: Vital Signs - 24 hr 01/14/25 12:00 01/14/25 12:00 01/14/25 12:29 Temperature Pulse Rate 94 86 86 Respiratory Rate 18 18 Blood Pressure 91/69 L Pulse Oximetry 97 97 Oxygen Delivery Room Air 01/14/25 14:00 01/14/25 14:00 01/14/25 16:00 Temperature Pulse Rate 84 84 83 Respiratory Rate 17 16 Blood Pressure 123/76 Pulse Oximetry 96 96 Oxygen Delivery Room Air 01/14/25 16:00 01/14/25 16:00 01/14/25 18:00 Temperature Pulse Rate 84 83 83 Respiratory Rate 16 Blood Pressure 143/62 H Pulse Oximetry 96 Oxygen Delivery 01/14/25 18:00 01/14/25 20:00 01/14/25 20:00 Temperature Pulse Rate 83 83 82 Respiratory Rate 16 16 Blood Pressure 143/62 H Pulse Oximetry 95 96 Oxygen Delivery Room Air 01/14/25 20:00 01/14/25 21:43 01/15/25 00:00 Temperature 98 F Pulse Rate 82 84 83 Respiratory Rate 16 16 16 Blood Pressure 125/78 125/78 Pulse Oximetry 100 100 94 Oxygen Delivery Room Air 01/15/25 00:00 01/15/25 00:00 01/15/25 02:00 Temperature 98.2 F Pulse Rate 83 84 84 Respiratory Rate 16 18 Blood Pressure 127/75 101/75 Pulse Oximetry 95 99 Oxygen Delivery 01/15/25 03:31 01/15/25 04:00 01/15/25 04:00 Temperature 98.2 F Pulse Rate 85 85 85 Respiratory Rate 18 14 Blood Pressure 144/84 H Pulse Oximetry 97 95 Oxygen Delivery Room Air 01/15/25 06:00 01/15/25 09:40 01/15/25 09:58 Temperature 98.6 F Pulse Rate 83 87 85 Respiratory Rate 14 13 Blood Pressure 157/109 H 134/84 149/89 H Pulse Oximetry 96 97 Oxygen Delivery 01/15/25 10:15 01/15/25 10:30 01/15/25 10:45 Temperature Pulse Rate 85 89 89 Respiratory Rate Blood Pressure 130/75 132/88 112/83 Pulse Oximetry Oxygen Delivery 01/15/25 11:00 01/15/25 11:15 Temperature Pulse Rate 91 92 Respiratory Rate Blood Pressure 109/83 118/81 Pulse Oximetry Oxygen Delivery Intake/Output Intake/Output: Intake & Output 01/12/25 01/13/25 01/14/25 01/15/25 23:59 23:59 23:59 23:59 Intake Total 1000 512.4 240 Output Total 250 0 Balance 1000 262.4 240 Meds/Results Medications: Active Medications Generic Name Dose Route Start Last Admin Trade Name Freq PRN Reason Stop Dose Admin Acetaminophen 500 mg 01/14/25 04:49 Acetaminophen 500 Mg Tablet PO Q4H PRN Mild Pain (1-3) or Fever Amlodipine Besylate 10 mg 01/14/25 09:00 Amlodipine Besylate 10 Mg Tablet PO DAILY ERICK Apixaban 5 mg 01/14/25 09:00 01/15/25 08:14 Apixaban 5 Mg Tablet PO 5 mg Q12HR ERICK Administration Dextrose 12.5 gm 01/13/25 22:27 Dextrose 50% 25 Gm/50 Ml Syringe IV PUSH PRN PRN Hypoglycemia Protocol Diphenhydramine HCl 25 mg 01/14/25 16:50 01/14/25 17:19 Diphenhydramine Hcl Elixir 12.5 Mg/5 Ml Udc PO 25 mg Q6H PRN Administration Itching Furosemide 40 mg 01/14/25 09:00 01/15/25 08:14 Furosemide 40 Mg Tablet PO 40 mg DAILY ERICK Administration Glucagon 1 mg 01/13/25 22:27 Glucagon For Inj 1 Mg Vial IM PRN PRN Hypoglycemia Protocol Glucose 15 gm 01/13/25 22:27 Glucose Oral Gel 15 Gm Of Glucse In 37.5 Gm Tube PO PRN PRN Hypoglycemia Protocol Hydromorphone HCl 0.5 mg 01/14/25 10:45 01/15/25 05:10 Hydromorphone Hcl Inj (*Crx) 1 Mg/Ml Syr IV PUSH 0.5 mg Q6H PRN Administration Pain Rated 7-10 Insulin Human Regular 100 100 mls @ 0 mls/hr 01/13/25 22:30 01/14/25 06:00 units/ Sodium Chloride IV CONT 0 units/hr .Q0M ERICK 0 mls/hr Titration Protocol 0 UNITS/HR Dextrose 1,000 mls @ 100 mls/hr 01/13/25 22:27 Dextrose 5% 1,000 Ml IVPB PRN PRN Hypoglycemia Protocol Albumin Human 50 mls @ 999 mls/hr 01/14/25 12:28 Albutein IVPB 01/15/25 12:27 Q10M PRN HYPOTENSION Insulin Aspart 2 - 4 units 01/15/25 21:00 Insulin Aspart (*Bkc) 100 Units/Ml SUB-Q HS [facility] Protocol Insulin Aspart 4 - 8 units 01/15/25 12:00 Insulin Aspart (*Bkc) 100 Units/Ml SUB-Q TIDWM [facility] Protocol Insulin Glargine 45 units 01/16/25 09:00 Insulin Glargine (*Bkc) 100 Units/Ml SUB-Q DAILY ERICK Ketorolac Tromethamine 1 drop 01/14/25 06:00 01/15/25 05:11 Ketorolac 0.5% Op Soln 5 Ml Bottle RIGHT EYE 1 drop Q6HR ERICK Administration Lisinopril 20 mg 01/14/25 09:00 Lisinopril 20 Mg Tablet PO QAM ERICK Loratadine 10 mg 01/15/25 09:00 01/15/25 08:15 Loratadine 10 Mg Tablet PO 10 mg QAM ERICK Administration Miscellaneous Information 0 each 01/14/25 00:01 Drospirenone Nonform Can Pt Bring From Home? XX 02/13/25 00:00 CLARIFY ERICK Non-Formulary Medication 4 mg 01/14/25 09:00 Drospirenone (Contraceptive) [Slynd] PO 02/13/25 08:59 DAILY ERICK Ofloxacin 1 drop 01/14/25 06:00 01/15/25 05:11 Ofloxacin 0.3% Ophth Soln 5 Ml Btl RIGHT EYE 1 drop Q6HR ERICK Administration Ondansetron HCl 4 mg 01/14/25 10:45 01/15/25 09:33 Ondansetron Inj 4 Mg/2 Ml Vial IV PUSH 4 mg Q4H PRN Administration Nausea And Vomiting Prednisolone Acetate 1 drop 01/14/25 06:00 01/15/25 05:11 Prednisolone Acetate 1% Ophth 5 Ml RIGHT EYE 1 drop Q6HR ERICK Administration Tramadol HCl 50 mg 01/14/25 04:50 01/14/25 08:35 Tramadol Hcl (*Crx) 50 Mg Tablet PO 50 mg Q6H PRN Administration Moderate Pain (Scale Score4-6) Radiology Results: ITS Impressions Chest X-Ray 01/13/25 20:45 IMPRESSION: Bilateral pneumonia. Underlying pulmonary edema is not excluded. Shoulder CT 01/14/25 11:24 IMPRESSION: 1. Stable findings of septic arthritis of the acromioclavicular joint and glenohumeral joint and septic subacromial/subdeltoid bursitis. Labs Labs: Laboratory Results - last 24 hr 01/14/25 01/14/25 01/14/25 10:19 11:45 15:06 WBC RBC Hgb Hct MCV MCH MCHC RDW Plt Count MPV Immature Gran % (Auto) Neut % (Auto) Lymph % (Auto) [place] % (Auto) Eos % (Auto) Baso % (Auto) Lymph # (Auto) [place] # (Auto) Eos # (Auto) Baso # (Auto) Abs Immat Gran (auto) Absolute Neuts (auto) Absolute Nucleated RBC Nucleated RBC % Sodium 135 L Potassium 4.2 Chloride 105 Carbon Dioxide 20 L Anion Gap 10 BUN 24 H Creatinine 5.42 H Estim Creat Clear Calc 19 Estimated GFR 9 L Glucose 348 H POC Capillary Glucose 273 H Lactic Acid Calcium 8.2 L Phosphorus Magnesium Total Bilirubin AST ALT Alkaline Phosphatase Total Protein Albumin Nasal MRSA (PCR) Not detected Urine Opiates Screen Urine Methadone Screen Ur Barbiturates Screen Ur Phencyclidine Scrn Ur Amphetamine Screen U Benzodiazepines Scrn Urine Cocaine Screen U Cannabinoids Screen 01/14/25 01/14/25 01/14/25 16:41 16:53 18:24 WBC RBC Hgb Hct MCV MCH MCHC RDW Plt Count MPV Immature Gran % (Auto) Neut % (Auto) Lymph % (Auto) [place] % (Auto) Eos % (Auto) Baso % (Auto) Lymph # (Auto) [place] # (Auto) Eos # (Auto) Baso # (Auto) Abs Immat Gran (auto) Absolute Neuts (auto) Absolute Nucleated RBC Nucleated RBC % Sodium 134 L Potassium 4.1 Chloride 106 Carbon Dioxide 19 L Anion Gap 9 BUN 25 H Creatinine 5.32 H Estim Creat Clear Calc 19 Estimated GFR 9 L Glucose 368 H POC Capillary Glucose 342 H Lactic Acid Calcium 8.2 L Phosphorus Magnesium Total Bilirubin AST ALT Alkaline Phosphatase Total Protein Albumin Nasal MRSA (PCR) Urine Opiates Screen Negative Urine Methadone Screen Negative Ur Barbiturates Screen Negative Ur Phencyclidine Scrn Negative Ur Amphetamine Screen Negative U Benzodiazepines Scrn Negative Urine Cocaine Screen Negative U Cannabinoids Screen Negative 01/14/25 01/15/2501/15/25 20:21 07:07 07:40 WBC 8.9 RBC 3.53 L Hgb 10.4 L Hct 33.7 L MCV 95.5 MCH 29.5 MCHC 30.9 L RDW 14.5 Plt Count 382 H MPV 9.9 Immature Gran % (Auto) 0.4 Neut % (Auto) 63.7 Lymph % (Auto) 21.5 [place] % (Auto) 6.3 Eos % (Auto) 7.5 H Baso % (Auto) 0.6 Lymph # (Auto) 1.92 [place] # (Auto) 0.6 Eos # (Auto) 0.7 H Baso # (Auto) 0.1 Abs Immat Gran (auto) 0.04 H Absolute Neuts (auto) 5.7 Absolute Nucleated RBC 0.000 Nucleated RBC % 0.0 Sodium 136 L Potassium 4.6 Chloride 107 Carbon Dioxide 20 L Anion Gap 9 BUN 26 H Creatinine 5.59 H Estim Creat Clear Calc 18 Estimated GFR 9 L Glucose 379 H POC Capillary Glucose 368 H 347 H Lactic Acid 1.1 Calcium 8.5 Phosphorus 4.6 H Magnesium 2.0 Total Bilirubin 0.3 AST 14 ALT 13 Alkaline Phosphatase 254 H Total Protein 7.0 Albumin 3.2 L Nasal MRSA (PCR) Urine Opiates Screen Urine Methadone Screen Ur Barbiturates Screen Ur Phencyclidine Scrn Ur Amphetamine Screen U Benzodiazepines Scrn Urine Cocaine Screen U Cannabinoids Screen
--- NOTE | 2025-01-15 11:55 | P.PNINT_ITS ---
Progress Note: A&P Assessment and Plan (1) Suicide attempt by drug overdose: Code(s): T50.902A - Poisoning by unspecified drugs, medicaments and biological substances, intentional self-harm, initial encounter Status: Acute Assessment and Plan: Patient presented with suicide attempt and behavior, suggested known amount of possible Coreg -more hypotension, bradycardia hypoglycemia -hemodynamically stable -continue to monitor -bedside sitter in place -suicide precaution -once she is medically stable will have care coordination and crisis management team evaluate the patient (2) Hyperglycemia without ketosis: Code(s): R73.9 - Hyperglycemia, unspecified Status: Acute Assessment and Plan: Hyperglycemia, nonketotic, hyperosmolar hyperglycemic state -patient was on insulin infusion briefly which is currently stopped -Increase Lantus and sliding scale insulin -hemoglobin A1c > 14 -clinical staff educator and dietitian to evaluate the patient (3) End-stage renal disease on hemodialysis: Code(s): N18.6 - End stage renal disease; Z99.2 - Dependence on renal dialysis Status: Acute Assessment and Plan: End-stage renal disease, on dialysis (Mondays, Wednesdays, Fridays) -nephrology has been consulted -dialysis per Nephrology (4) Hypertension: Code(s): I10 - Essential (primary) hypertension Status: Chronic Assessment and Plan: History of hypertension, will restart amlodipine, Lasix, lisinopril (5) Chronic 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: Code(s): 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 This critical care time included obtaining a history; examining the patient; pulse oximetry; ordering and review of studies; arranging urgent treatment with development of a management plan; evaluation of patient's response to treatment; frequent reassessment; and discussions with other providers. It was exclusive of separately billable procedures and treating other patients and teaching time. Please see Assessment and Plan section and the rest of the note for further information on patient assessment and treatment This dictation may have been done utilizing a voice recognition system. Attempts have been made to correct errors. However, there may be uncorrected grammatical, spelling, and recognitions errors present. Subjective Date/time seen: 01/15/25 11:55 Interval history: Reason for consult: Intentional overdose, hyperglycemia 01/15/2025: Patient seen and examined the ICU, is awake, alert, answers questions appropriately. Patient is blind from the left eye and decreased vision in the right eye. Complains of itching on her back most likely feels that it is due to the bed sheet. Denies any chest pain, shortness with abdominal pain, nausea, vomiting at this time. Her pain has improved with Dilaudid, patient is hemodynamically stable, on room air with 100% O2 sats. Review of Systems Review of Systems: All systems reviewed & are unremarkable except as noted in HPI and below Exam Narrative: General: Pleasant female complains of right shoulder pain HEENT:? Right eye pupil reactive, left eye pupil is degenerate Neck:? Supple Respiratory:? Coarse breath sounds bilaterally, decreased at bases Cardiac:? S1-S2 normal, regular rate and rhythm Abdomen:? Soft, nontender, nondistended, normoactive bowel sounds Extremities:? Left AKA, Neuro:? Patient is awake, alert, oriented, nonfocal Skin:? right heel diabetic ulcer with clear margins, no tunneling or exposure of bone. No erythema. In the right lower extremity chronic venous stasis changes Psych:? Depressed mood and affect Objective Data Vital Signs Vital Signs: Vital Signs - 24 hr 01/14/25 12:00 01/14/25 12:00 01/14/25 12:29 Temperature Pulse Rate 94 86 86 Respiratory Rate 18 18 Blood Pressure 91/69 L Pulse Oximetry 97 97 Oxygen Delivery Room Air 01/14/25 14:00 01/14/25 14:00 01/14/25 16:00 Temperature Pulse Rate 84 84 83 Respiratory Rate 17 16 Blood Pressure 123/76 Pulse Oximetry 96 96 Oxygen Delivery Room Air 01/14/25 16:00 01/14/25 16:00 01/14/25 18:00 Temperature Pulse Rate 84 83 83 Respiratory Rate 16 Blood Pressure 143/62 H Pulse Oximetry 96 Oxygen Delivery 01/14/25 18:00 01/14/25 20:00 01/14/25 20:00 Temperature Pulse Rate 83 83 82 Respiratory Rate 16 16 Blood Pressure 143/62 H Pulse Oximetry 95 96 Oxygen Delivery Room Air 01/14/25 20:00 01/14/25 21:43 01/15/25 00:00 Temperature 98 F Pulse Rate 82 84 83 Respiratory Rate 16 16 16 Blood Pressure 125/78 125/78 Pulse Oximetry 100 100 94 Oxygen Delivery Room Air 01/15/25 00:00 01/15/25 00:00 01/15/25 02:00 Temperature 98.2 F Pulse Rate 83 84 84 Respiratory Rate 16 18 Blood Pressure 127/75 101/75 Pulse Oximetry 95 99 Oxygen Delivery 01/15/25 03:31 01/15/25 04:00 01/15/25 04:00 Temperature 98.2 F Pulse Rate 85 85 85 Respiratory Rate 18 14 Blood Pressure 144/84 H Pulse Oximetry 97 95 Oxygen Delivery Room Air 01/15/25 06:00 01/15/25 09:40 01/15/25 09:58 Temperature 98.6 F Pulse Rate 83 87 85 Respiratory Rate 14 13 Blood Pressure 157/109 H 134/84 149/89 H Pulse Oximetry 96 97 Oxygen Delivery 01/15/25 10:15 01/15/25 10:30 01/15/25 10:45 Temperature Pulse Rate 85 89 89 Respiratory Rate Blood Pressure 130/75 132/88 112/83 Pulse Oximetry Oxygen Delivery 01/15/25 11:00 01/15/25 11:15 01/15/25 11:30 Temperature Pulse Rate 91 92 91 Respiratory Rate Blood Pressure 109/83 118/81 105/77 Pulse Oximetry Oxygen Delivery Intake/Output Intake/Output: Intake & Output 01/12/25 01/13/25 01/14/25 01/15/25 23:59 23:59 23:59 23:59 Intake Total 1000 512.4 240 Output Total 250 0 Balance 1000 262.4 240 Meds/Results Medications: Active Medications Generic Name Dose Route Start Last Admin Trade Name Freq PRN Reason Stop Dose Admin Acetaminophen 500 mg 01/14/25 04:49 Acetaminophen 500 Mg Tablet PO Q4H PRN Mild Pain (1-3) or Fever Amlodipine Besylate 10 mg 01/14/25 09:00 Amlodipine Besylate 10 Mg Tablet PO DAILY ERICK Apixaban 5 mg 01/14/25 09:00 01/15/25 08:14 Apixaban 5 Mg Tablet PO 5 mg Q12HR ERICK Administration Dextrose 12.5 gm 01/13/25 22:27 Dextrose 50% 25 Gm/50 Ml Syringe IV PUSH PRN PRN Hypoglycemia Protocol Diphenhydramine HCl 25 mg 01/14/25 16:50 01/14/25 17:19 Diphenhydramine Hcl Elixir 12.5 Mg/5 Ml Udc PO 25 mg Q6H PRN Administration Itching Furosemide 40 mg 01/14/25 09:00 01/15/25 08:14 Furosemide 40 Mg Tablet PO 40 mg DAILY ERICK Administration Glucagon 1 mg 01/13/25 22:27 Glucagon For Inj 1 Mg Vial IM PRN PRN Hypoglycemia Protocol Glucose 15 gm 01/13/25 22:27 Glucose Oral Gel 15 Gm Of Glucse In 37.5 Gm Tube PO PRN PRN Hypoglycemia Protocol Hydromorphone HCl 0.5 mg 01/14/25 10:45 01/15/25 05:10 Hydromorphone Hcl Inj (*Crx) 1 Mg/Ml Syr IV PUSH 0.5 mg Q6H PRN Administration Pain Rated 7-10 Insulin Human Regular 100 100 mls @ 0 mls/hr 01/13/25 22:30 01/14/25 06:00 units/ Sodium Chloride IV CONT 0 units/hr .Q0M ERICK 0 mls/hr Titration Protocol 0 UNITS/HR Dextrose 1,000 mls @ 100 mls/hr 01/13/25 22:27 Dextrose 5% 1,000 Ml IVPB PRN PRN Hypoglycemia Protocol Albumin Human 50 mls @ 999 mls/hr 01/14/25 12:28 Albutein IVPB 01/15/25 12:27 Q10M PRN HYPOTENSION Insulin Aspart 2 - 4 units 01/15/25 21:00 Insulin Aspart (*Bkc) 100 Units/Ml SUB-Q HS ERICK Protocol Insulin Aspart 4 - 8 units 01/15/25 12:00 Insulin Aspart (*Bkc) 100 Units/Ml SUB-Q TIDWM ERICK Protocol Insulin Glargine 45 units 01/16/25 09:00 Insulin Glargine (*Bkc) 100 Units/Ml SUB-Q DAILY ERICK Ketorolac Tromethamine 1 drop 01/14/25 06:00 01/15/25 05:11 Ketorolac 0.5% Op Soln 5 Ml Bottle RIGHT EYE 1 drop Q6HR ERICK Administration Lisinopril 20 mg 01/14/25 09:00 Lisinopril 20 Mg Tablet PO QAM ERICK Loratadine 10 mg 01/15/25 09:00 01/15/25 08:15 Loratadine 10 Mg Tablet PO 10 mg QAM ERICK Administration Miscellaneous Information 0 each 01/14/25 00:01 Drospirenone Nonform Can Pt Bring From Home? XX 02/13/25 00:00 CLARIFY ERICK Non-Formulary Medication 4 mg 01/14/25 09:00 Drospirenone (Contraceptive) [Slynd] PO 02/13/25 08:59 DAILY ERICK Ofloxacin 1 drop 01/14/25 06:00 01/15/25 05:11 Ofloxacin 0.3% Ophth Soln 5 Ml Btl RIGHT EYE 1 drop Q6HR ERICK Administration Ondansetron HCl 4 mg 01/14/25 10:45 01/15/25 09:33 Ondansetron Inj 4 Mg/2 Ml Vial IV PUSH 4 mg Q4H PRN Administration Nausea And Vomiting Prednisolone Acetate 1 drop 01/14/25 06:00 01/15/25 05:11 Prednisolone Acetate 1% Ophth 5 Ml RIGHT EYE 1 drop Q6HR ERICK Administration Tramadol HCl 50 mg 01/14/25 04:50 01/14/25 08:35 Tramadol Hcl (*Crx) 50 Mg Tablet PO 50 mg Q6H PRN Administration Moderate Pain (Scale Score4-6) Radiology Results: ITS Impressions Chest X-Ray 01/13/25 20:45 IMPRESSION: Bilateral pneumonia. Underlying pulmonary edema is not excluded. Shoulder CT 01/14/25 11:24 IMPRESSION: 1. Stable findings of septic arthritis of the acromioclavicular joint and glenohumeral joint and septic subacromial/subdeltoid bursitis. Labs Labs: Laboratory Results - last 24 hr 01/14/25 01/14/25 01/14/25 15:06 16:41 16:53 WBC RBC Hgb Hct MCV MCH MCHC RDW Plt Count MPV Immature Gran % (Auto) Neut % (Auto) Lymph % (Auto) [place] % (Auto) Eos % (Auto) Baso % (Auto) Lymph # (Auto) [place] # (Auto) Eos # (Auto) Baso # (Auto) Abs Immat Gran (auto) Absolute Neuts (auto) Absolute Nucleated RBC Nucleated RBC % Sodium 135 L Potassium 4.2 Chloride 105 Carbon Dioxide 20 L Anion Gap 10 BUN 24 H Creatinine 5.42 H Estim Creat Clear Calc 19 Estimated GFR 9 L Glucose 348 H POC Capillary Glucose 342 H Lactic Acid Calcium 8.2 L Phosphorus Magnesium Total Bilirubin AST ALT Alkaline Phosphatase Total Protein Albumin Urine Opiates Screen Negative Urine Methadone Screen Negative Ur Barbiturates Screen Negative Ur Phencyclidine Scrn Negative Ur Amphetamine Screen Negative U Benzodiazepines Scrn Negative Urine Cocaine Screen Negative U Cannabinoids Screen Negative 01/14/25 01/14/25 01/15/25 18:24 20:21 07:07 WBC 8.9 RBC 3.53 L Hgb 10.4 L Hct 33.7 L MCV 95.5 MCH 29.5 MCHC 30.9 L RDW 14.5 Plt Count 382 H MPV 9.9 Immature Gran % (Auto) 0.4 Neut % (Auto) 63.7 Lymph % (Auto) 21.5 [place] % (Auto) 6.3 Eos % (Auto) 7.5 H Baso % (Auto) 0.6 Lymph # (Auto) 1.92 [place] # (Auto) 0.6 Eos # (Auto) 0.7 H Baso # (Auto) 0.1 Abs Immat Gran (auto) 0.04 H Absolute Neuts (auto) 5.7 Absolute Nucleated RBC 0.000 Nucleated RBC % 0.0 Sodium 134 L 136 L Potassium 4.1 4.6 Chloride 106 107 Carbon Dioxide 19 L 20 L Anion Gap 9 9 BUN 25 H 26 H Creatinine 5.32 H 5.59 H Estim Creat Clear Calc 19 18 Estimated GFR 9 L 9 L Glucose 368 H 379 H POC Capillary Glucose 368 H Lactic Acid 1.1 Calcium 8.2 L 8.5 Phosphorus 4.6 H Magnesium 2.0 Total Bilirubin 0.3 AST 14 ALT 13 Alkaline Phosphatase 254 H Total Protein 7.0 Albumin 3.2 L Urine Opiates Screen Urine Methadone Screen Ur Barbiturates Screen Ur Phencyclidine Scrn Ur Amphetamine Screen U Benzodiazepines Scrn Urine Cocaine Screen U Cannabinoids Screen 01/15/25 07:40 WBC RBC Hgb Hct MCV MCH MCHC RDW Plt Count MPV Immature Gran % (Auto) Neut % (Auto) Lymph % (Auto) [place] % (Auto) Eos % (Auto) Baso % (Auto) Lymph # (Auto) [place] # (Auto) Eos # (Auto) Baso # (Auto) Abs Immat Gran (auto) Absolute Neuts (auto) Absolute Nucleated RBC Nucleated RBC % Sodium Potassium Chloride Carbon Dioxide Anion Gap BUN Creatinine Estim Creat Clear Calc Estimated GFR Glucose POC Capillary Glucose 347 H Lactic Acid Calcium Phosphorus Magnesium Total Bilirubin AST ALT Alkaline Phosphatase Total Protein Albumin Urine Opiates Screen Urine Methadone Screen Ur Barbiturates Screen Ur Phencyclidine Scrn Ur Amphetamine Screen U Benzodiazepines Scrn Urine Cocaine Screen U Cannabinoids Screen Quality VTE Prophylaxis VTE prophylaxis: pharmacologic ordered
[2025-01-15 12:21] LABS: Glucose Point of Care 202 mg/dl (65-105)
[2025-01-15 16:32] LABS: Glucose Point of Care 307 mg/dl (65-105)
[2025-01-15] MEDS: diphenhydrAMINE HCL ELIXIR 12.5 MG/5 ML UDC 25 MG PO (20:32)
[2025-01-15 20:50] LABS: Glucose Point of Care 278 mg/dl (65-105)
[2025-01-16] VITALS: BP 118/75; PULSE 87; RESP 18; TEMP 36.5; O2SAT 97
[2025-01-16] MEDS: HYDROmorphone HCL INJ (*CRX) 1 MG/ML SYR 0.5 MG IV PUSH ×3 (05:37→17:37)
[2025-01-16] MEDS: prednisoLONE ACETATE 1% OPHTH 5 ML 1 DROP RIGHT EYE ×4 (05:37→23:09)
[2025-01-16] MEDS: KETOROLAC 0.5% OP SOLN 5 ML BOTTLE 1 DROP RIGHT EYE ×4 (05:38→23:09)
[2025-01-16] MEDS: OFLOXACIN 0.3% OPHTH SOLN 5 ML BTL 1 DROP RIGHT EYE ×4 (05:38→23:09)
[2025-01-16 06:15] LABS: Basophils Absolute Auto 0.1 K/mm3 (0.0-0.1); Basophils Percent Auto 0.5 % (0.2-1.2); Eosinophils Absolute Auto 0.8 K/mm3 (0-0.3); Eosinophils Percent Auto 6.8 % (0-4.4); Hematocrit 36.2 % (37.0-47.0); Hemoglobin 10.7 g/dL (12.0-15.0); Immature Granulocyte Absolute 0.06 K/mm3 (0.00-0.031); Immature Granulocyte Percent A 0.5 % (0-0.5); Lymphocytes Absolute Auto 2.41 K/mm3 (0.9-3.2); Mean Corpuscular HGB Conc 29.6 g/dl (32-36); Mean Corpuscular Hemoglobin 28.7 pg (26-34); Mean Corpuscular Volume 97.1 fl (80-100); Mean Platelet Volume 9.8 fl (7.4-10.4); Monocytes Absolute Auto 0.8 K/mm3 (0.1-0.6); Monocytes Percent Auto 7.1 % (2.6-8.5); Neutrophils Absolute Auto 6.9 K/mm3 (1.3-6.7); Neutrophils Percent Auto 63.1 % (45.5-73.1); Platelet Count Result 384 k/mm3 (150-375); Red Blood Count 3.73 M/mm3 (4.2-5.4)
[2025-01-16 06:29] LABS: Alanine Aminotransferase 13 U/L (6-35); Albumin Level 3.4 g/dL (3.5-5.1); Alkaline Phosphatase 223 U/L (38-126); Anion Gap 10 mmol/L (4-12); Aspartate Amino Transferase 17 U/L (14-36); Bilirubin,Total 0.4 mg/dL (0.2-1.3); Blood Urea Nitrogen 17 mg/dL (7-17); Calcium 8.3 mg/dL (8.4-10.2); Carbon Dioxide 26 mmol/L (22-30); Chloride 100 mmol/L (98-107); Estimated CRCL calculation 24 ml/min; Estimated Glomerular Filt Rate 12; Glucose 271 mg/dL (65-110); Magnesium 1.9 mg/dL (1.6-2.3); Phosphorus 4.4 mg/dL (2.5-4.5); Potassium 4.1 mmol/L (3.4-5.0); Sodium 136 mmol/L (137-145)
[2025-01-16 08:00] VITALS: BP 133/82; PULSE 86; RESP 14; TEMP 36.7; O2SAT 96
[2025-01-16] MEDS: FUROSEMIDE 40 MG TABLET PO (08:14)
[2025-01-16] MEDS: APIXABAN 5 MG TABLET PO ×2 (08:14→20:11)
[2025-01-16] MEDS: INSULIN ASPART (*BKC) 100 UNITS/ML SUB-Q ×4 (08:15→20:09)
[2025-01-16] MEDS: INSULIN GLARGINE (*BKC) 100 UNITS/ML 45 UNITS SUB-Q (08:15)
[2025-01-16 08:32] LABS: Glucose Point of Care 309 mg/dl (65-105)
--- NOTE | 2025-01-16 08:41 | PM.IMPN ---
Progress Note: A&P Assessment and Plan (1) Suicide attempt by drug overdose: Code(s): T50.902A - Poisoning by unspecified drugs, medicaments and biological substances, intentional self-harm, initial encounter Status: Acute Assessment and Plan: Patient presented with suicide attempt and behavior, suggested known amount of possible Coreg -more hypotension, bradycardia hypoglycemia -hemodynamically stable -continue to monitor -bedside sitter in place -suicide precaution -once she is medically stable will have care coordination and crisis management team evaluate the patient (2) Hyperglycemia without ketosis: Code(s): R73.9 - Hyperglycemia, unspecified Status: Acute Assessment and Plan: Hyperglycemia, nonketotic, hyperosmolar hyperglycemic state -patient was on insulin infusion briefly which is currently stopped -Increase Lantus and sliding scale insulin -hemoglobin A1c > 14 -ems educator and dietitian to evaluate the patient (3) End-stage renal disease on hemodialysis: Code(s): N18.6 - End stage renal disease; Z99.2 - Dependence on renal dialysis Status: Acute Assessment and Plan: End-stage renal disease, on dialysis (Mondays, Wednesdays, Fridays) -nephrology has been consulted -dialysis per Nephrology (4) Hypertension: Code(s): I10 - Essential (primary) hypertension Status: Chronic Assessment and Plan: History of hypertension, will restart amlodipine, Lasix, lisinopril (5) Chronic 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: Code(s): Z79.01 - buttermaker (current) use of 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 Status: Chronic Assessment and Plan: Chronic 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 with apixaban (6) Leukocytosis: Code(s): D72.829 - Elevated white blood cell count, unspecified Status: Acute Assessment and Plan: Possibly pneumonia Started on ceftriaxone and doxy Ordered blood culture, urine culture and CT scan of the right lower extremity to rule out any osteomyelitis Monitor cultures Encourage fluid intake Nasal MRSA negative Subjective Date/time seen: 01/16/25 08:41 Interval history: Assumed care on 01/16. During the evaluation initially patient was quite but later she was able to answer all the questions. Patient needs a proper psychiatric evaluation. Patient changes he is depressed due to lot of things medical going on in her life. Had a pleasant conversation. Patient has been dialysis for almost [address] Millan.Currently patient denies any homicidal or suicidal ideation. Patient has increased WBC. Ordered chest x-ray, UA, right foot CT(to rule out osteomyelitis), blood culture and wound culture. Patient is not medically cleared for crisis team to evaluate. Review of Systems Review of Systems: 12 systems were reviewed with pertinent positives and negatives per HPI. Except as documented in the HPI, all other systems were reviewed and are negative. All systems reviewed & are unremarkable except as noted in HPI and below Exam Narrative: General: Pleasant female complains of right shoulder pain HEENT:? Right eye pupil reactive, left eye pupil is degenerate Neck:? Supple Respiratory:? Coarse breath sounds bilaterally, decreased at bases Cardiac:? S1-S2 normal, regular rate and rhythm Abdomen:? Soft, nontender, nondistended, normoactive bowel sounds Extremities:? Left AKA, Neuro:? Patient is awake, alert, oriented, nonfocal Skin:? right heel diabetic ulcer with clear margins, no tunneling or exposure of bone. No erythema. In the right lower extremity chronic venous stasis changes Psych:? Depressed mood and affect Const: Other: obese, chronically ill-appearing, appears older stated age HENMT: Other: mucous membranes are tacky, no oral pharyngeal erythema, crowded posterior oropharynx, head is normocephalic atraumatic Eyes: Other: patient has chronic scarring to the left cornea / pupil with opacification of the globe, right eye demonstrates lens replacement and is minimally reactive, patient's eyes are deviated in upward gaze bilaterally, positive conjunctival pallor, no scleral icterus Neck: Other: large neck circumference, asymmetry to the lymph nodes of the neck in the anterior cervical chain right greater than left Chest: Other: Tunneled dialysis catheter in left chest with sutures in place but the line is no longer secured by the broken sutures Resp: Other: decreased breath sounds at the bases, no increased work of breathing Cardio: Other: regular rate, regular rhythm, 2+ bilateral radial pulses, 1+ right pedal pulse GI: Other: obese, nontender, positive bowel sounds Skin: Other: chronic decubitus wound to the right calcaneus, otherwise skin is cool to touch, no other open wounds noted, left above the knee amputation stump site in good condition Neuro: Other: alert oriented x4, speech is clear, no facial asymmetry, deviation of bilateral eyes upward with chronic pupillary changes, decreased sensation to the hands bilaterally and to the right foot consistent with hip patient's history of diabetic peripheral neuropathy Extrem: Other: above the knee amputation, chronic right calcaneus wound without evidence of drainage or surrounding erythema wound is clean and dry Psych: Other: depressed mood, flat affect, cooperative, poor judgment and insight Objective Data Vital Signs Vital Signs: Vital Signs - 24 hr 01/15/25 09:40 01/15/25 09:58 01/15/25 10:00 Temperature 98.6 F Pulse Rate 87 85 86 Respiratory Rate 13 Blood Pressure 134/84 149/89 H Pulse Oximetry 97 Oxygen Delivery 01/15/25 10:00 01/15/25 10:15 01/15/25 10:30 Temperature 97.5 F L Pulse Rate 86 85 89 Respiratory Rate 13 Blood Pressure 149/89 H 130/75 132/88 Pulse Oximetry 98 Oxygen Delivery 01/15/25 10:45 01/15/25 11:00 01/15/25 11:15 Temperature Pulse Rate 89 91 92 Respiratory Rate Blood Pressure 112/83 109/83 118/81 Pulse Oximetry Oxygen Delivery 01/15/25 11:30 01/15/25 11:45 01/15/25 12:00 Temperature Pulse Rate 91 87 93 Respiratory Rate Blood Pressure 105/77 114/81 113/76 Pulse Oximetry Oxygen Delivery 01/15/25 12:00 01/15/25 12:00 01/15/25 12:00 Temperature Pulse Rate 92 92 Respiratory Rate 19 Blood Pressure 113/76 Pulse Oximetry 97 100 Oxygen Delivery Room Air 01/15/25 12:15 01/15/25 12:30 01/15/25 12:45 Temperature Pulse Rate 89 86 86 Respiratory Rate Blood Pressure 104/75 89/62 L 122/85 Pulse Oximetry Oxygen Delivery 01/15/25 13:00 01/15/25 13:15 01/15/25 13:34 Temperature Pulse Rate 86 92 87 Respiratory Rate Blood Pressure 109/75 108/69 107/75 Pulse Oximetry Oxygen Delivery 01/15/25 14:00 01/15/25 14:00 01/15/25 16:00 Temperature Pulse Rate 90 89 88 Respiratory Rate 12 19 Blood Pressure 109/74 115/74 Pulse Oximetry 99 99 Oxygen Delivery 01/15/25 16:00 01/15/25 20:00 01/15/25 20:00 Temperature 98.2 F Pulse Rate 86 Respiratory Rate Blood Pressure Pulse Oximetry 97 Oxygen Delivery Room Air 01/16/25 00:00 01/16/25 08:00 Temperature 97.7 F 98.1 F Pulse Rate 87 86 Respiratory Rate 18 14 Blood Pressure 118/75 133/82 Pulse Oximetry 97 96 Oxygen Delivery Intake/Output Intake/Output: Intake & Output 01/13/25 01/14/25 01/15/25 01/16/25 23:59 23:59 23:59 23:59 Intake Total 1000 512.4 600 480 Output Total 250 750 0 Balance 1000 262.4 -150 480 Meds/Results Medications: Active Medications Generic Name Dose Route Start Last Admin Trade Name Freq PRN Reason Stop Dose Admin Acetaminophen 500 mg 01/14/25 04:49 Acetaminophen 500 Mg Tablet PO Q4H PRN Mild Pain (1-3) or Fever Amlodipine Besylate 10 mg 01/14/25 09:00 Amlodipine Besylate 10 Mg Tablet PO DAILY ERICK Apixaban 5 mg 01/14/25 09:00 01/16/25 08:14 Apixaban 5 Mg Tablet PO 5 mg Q12HR ERICK Administration Dextrose 12.5 gm 01/13/25 22:27 Dextrose 50% 25 Gm/50 Ml Syringe IV PUSH PRN PRN Hypoglycemia Protocol Diphenhydramine HCl 25 mg 01/14/25 16:50 01/15/25 20:32 Diphenhydramine Hcl Elixir 12.5 Mg/5 Ml Udc PO 25 mg Q6H PRN Administration Itching Furosemide 40 mg 01/14/25 09:00 01/16/25 08:14 Furosemide 40 Mg Tablet PO 40 mg DAILY ERICK Administration Glucagon 1 mg 01/13/25 22:27 Glucagon For Inj 1 Mg Vial IM PRN PRN Hypoglycemia Protocol Glucose 15 gm 01/13/25 22:27 Glucose Oral Gel 15 Gm Of Glucse In 37.5 Gm Tube PO PRN PRN Hypoglycemia Protocol Hydromorphone HCl 0.5 mg 01/14/25 10:45 01/16/25 05:37 Hydromorphone Hcl Inj (*Crx) 1 Mg/Ml Syr IV PUSH 0.5 mg Q6H PRN Administration Pain Rated 7-10 Dextrose 1,000 mls @ 100 mls/hr 01/13/25 22:27 Dextrose 5% 1,000 Ml IVPB PRN PRN Hypoglycemia Protocol Insulin Aspart 2 - 4 units 01/15/25 21:00 01/15/25 20:33 Insulin Aspart (*Bkc) 100 Units/Ml SUB-Q 2 units HS ERICK Administration Protocol Insulin Aspart 4 - 8 units 01/15/25 12:00 01/16/25 08:15 Insulin Aspart (*Bkc) 100 Units/Ml SUB-Q 6 units TIDWM [facility] Administration Protocol Insulin Glargine 45 units 01/16/25 09:00 01/16/25 08:15 Insulin Glargine (*Bkc) 100 Units/Ml SUB-Q 45 units DAILY ERICK Administration Ketorolac Tromethamine 1 drop 01/14/25 06:00 01/16/25 05:38 Ketorolac 0.5% Op Soln 5 Ml Bottle RIGHT EYE 1 drop Q6HR ERICK Administration Lisinopril 20 mg 01/14/25 09:00 Lisinopril 20 Mg Tablet PO QAM ERICK Loratadine 10 mg 01/15/25 09:00 01/16/25 08:20 Loratadine 10 Mg Tablet PO Not Given QAM [facility] Miscellaneous Information 0 each 01/14/25 00:01 Drospirenone Nonform Can Pt Bring From Home? XX 02/13/25 00:00 CLARIFY ERICK Non-Formulary Medication 4 mg 01/14/25 09:00 Drospirenone (Contraceptive) [Slynd] PO 02/13/25 08:59 DAILY ERICK Ofloxacin 1 drop 01/14/25 06:00 01/16/25 05:38 Ofloxacin 0.3% Ophth Soln 5 Ml Btl RIGHT EYE 1 drop Q6HR ERICK Administration Ondansetron HCl 4 mg 01/14/25 10:45 01/15/25 09:33 Ondansetron Inj 4 Mg/2 Ml Vial IV PUSH 4 mg Q4H PRN Administration Nausea And Vomiting Prednisolone Acetate 1 drop 01/14/25 06:00 01/16/25 05:37 Prednisolone Acetate 1% Ophth 5 Ml RIGHT EYE 1 drop Q6HR ERICK Administration Tramadol HCl 50 mg 01/14/25 04:50 01/14/25 08:35 Tramadol Hcl (*Crx) 50 Mg Tablet PO 50 mg Q6H PRN Administration Moderate Pain (Scale Score4-6) Radiology Results: ITS Impressions Chest X-Ray 01/13/25 20:45 IMPRESSION: Bilateral pneumonia. Underlying pulmonary edema is not excluded. Shoulder CT 01/14/25 11:24 IMPRESSION: 1. Stable findings of septic arthritis of the acromioclavicular joint and glenohumeral joint and septic subacromial/subdeltoid bursitis. Labs Labs: Laboratory Results - last 24 hr 01/15/25 01/15/25 01/15/25 12:13 16:28 20:32 WBC RBC Hgb Hct MCV MCH MCHC RDW Plt Count MPV Immature Gran % (Auto) Neut % (Auto) Lymph % (Auto) [place] % (Auto) Eos % (Auto) Baso % (Auto) Lymph # (Auto) [place] # (Auto) Eos # (Auto) Baso # (Auto) Abs Immat Gran (auto) Absolute Neuts (auto) Absolute Nucleated RBC Nucleated RBC % Sodium Potassium Chloride Carbon Dioxide Anion Gap BUN Creatinine Estim Creat Clear Calc Estimated GFR Glucose POC Capillary Glucose 202 H 307 H 278 H Calcium Phosphorus Magnesium Total Bilirubin AST ALT Alkaline Phosphatase Total Protein Albumin 01/16/25 01/16/25 06:07 08:05 WBC 11.0 H RBC 3.73 L Hgb 10.7 L Hct 36.2 L MCV 97.1 MCH 28.7 MCHC 29.6 L RDW 14.0 Plt Count 384 H MPV 9.8 Immature Gran % (Auto) 0.5 Neut % (Auto) 63.1 Lymph % (Auto) 22.0 [place] % (Auto) 7.1 Eos % (Auto) 6.8 H Baso % (Auto) 0.5 Lymph # (Auto) 2.41 [place] # (Auto) 0.8 H Eos # (Auto) 0.8 H Baso # (Auto) 0.1 Abs Immat Gran (auto) 0.06 H Absolute Neuts (auto) 6.9 H Absolute Nucleated RBC 0.000 Nucleated RBC % 0.0 Sodium 136 L Potassium 4.1 Chloride 100 Carbon Dioxide 26 Anion Gap 10 BUN 17 Creatinine 4.24 H Estim Creat Clear Calc 24 Estimated GFR 12 L Glucose 271 H POC Capillary Glucose 309 H Calcium 8.3 L Phosphorus 4.4 Magnesium 1.9 Total Bilirubin 0.4 AST 17 ALT 13 Alkaline Phosphatase 223 H Total Protein 7.0 Albumin 3.4 L Quality VTE Prophylaxis VTE prophylaxis: pharmacologic ordered Hospitalist [facility] Advance Care Plan I have confirmed that the patient's Advanced Care Plan is present, code status is documented, or surrogate decision maker is listed in patient medical record.: Yes Medication Reconciliation I have utilized all available resources to obtain, update and review the patients current medications (includes all prescriptions, OTC, herbals, cannabis, and nutritional supplements).: Yes
--- NOTE | 2025-01-16 09:27 | PM.PNNEP ---
Progress Note: A&P Assessment and Plan (1) End stage chronic kidney disease: Code(s): N18.6 - End stage renal disease Status: Acute Assessment and Plan: The patient has end-stage renal disease. She has been on dialysis for a little more than a year. She is managed by Dr. Millan at the dialysis unit. Her treatments have been going well at the dialysis unit. she did well in dialysis yesterday. Will order another round of dialysis for tomorrow (2) Suicide attempt: Code(s): T14.91XA - Suicide attempt, initial encounter Status: Acute Assessment and Plan: The patient took carvedilol. It is unclear how many she took. blood pressures and pulse measurements were okay overnight. (3) Hyperglycemia without ketosis: Code(s): R73.9 - Hyperglycemia, unspecified Status: Acute Assessment and Plan: Sugars were very high early on this has come down and a ranging from 100-400 (4) Type 2 diabetes mellitus with hyperosmolar hyperglycemic state (HHS): Code(s): E11.00 - Type 2 diabetes mellitus with hyperosmolarity without nonketotic hyperglycemic-hyperosmolar coma (NKHHC) Status: Acute Assessment and Plan: Management per hospitalist/marbleizing machine tender. 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 received EPO yesterday. Will order more for tomorrow will check a CBC in the morning (7) Hypertension: Code(s): I10 - Essential (primary) hypertension Status: Chronic Assessment and Plan: Blood pressure is under good control Subjective Date/time seen: 01/16/25 09:27 Interval history: Gay is in better spirits today. She had a good breakfast. Itching is better Exam Narrative: WDWN female in NAD skin no rash head ncat lungs clear bilaterally cor reg no rub abd BS+ nontender and soft ext no edema. Objective Data Vital Signs Vital Signs: Vital Signs - 24 hr 01/15/25 09:40 01/15/25 09:58 01/15/25 10:00 Temperature 98.6 F Pulse Rate 87 85 86 Respiratory Rate 13 Blood Pressure 134/84 149/89 H Pulse Oximetry 97 Oxygen Delivery 01/15/25 10:00 01/15/25 10:15 01/15/25 10:30 Temperature 97.5 F L Pulse Rate 86 85 89 Respiratory Rate 13 Blood Pressure 149/89 H 130/75 132/88 Pulse Oximetry 98 Oxygen Delivery 01/15/25 10:45 01/15/25 11:00 01/15/25 11:15 Temperature Pulse Rate 89 91 92 Respiratory Rate Blood Pressure 112/83 109/83 118/81 Pulse Oximetry Oxygen Delivery 01/15/25 11:30 01/15/25 11:45 01/15/25 12:00 Temperature Pulse Rate 91 87 93 Respiratory Rate Blood Pressure 105/77 114/81 113/76 Pulse Oximetry Oxygen Delivery 01/15/25 12:00 01/15/25 12:00 01/15/25 12:00 Temperature Pulse Rate 92 92 Respiratory Rate 19 Blood Pressure 113/76 Pulse Oximetry 97 100 Oxygen Delivery Room Air 01/15/25 12:15 01/15/25 12:30 01/15/25 12:45 Temperature Pulse Rate 89 86 86 Respiratory Rate Blood Pressure 104/75 89/62 L 122/85 Pulse Oximetry Oxygen Delivery 01/15/25 13:00 01/15/25 13:15 01/15/25 13:34 Temperature Pulse Rate 86 92 87 Respiratory Rate Blood Pressure 109/75 108/69 107/75 Pulse Oximetry Oxygen Delivery 01/15/25 14:00 01/15/25 14:00 01/15/25 16:00 Temperature Pulse Rate 90 89 88 Respiratory Rate 12 19 Blood Pressure 109/74 115/74 Pulse Oximetry 99 99 Oxygen Delivery 01/15/25 16:00 01/15/25 20:00 01/15/25 20:00 Temperature 98.2 F Pulse Rate 86 Respiratory Rate Blood Pressure Pulse Oximetry 97 Oxygen Delivery Room Air 01/16/25 00:00 01/16/25 08:00 Temperature 97.7 F 98.1 F Pulse Rate 87 86 Respiratory Rate 18 14 Blood Pressure 118/75 133/82 Pulse Oximetry 97 96 Oxygen Delivery Intake/Output Intake/Output: Intake & Output 01/13/25 01/14/25 01/15/25 01/16/25 23:59 23:59 23:59 23:59 Intake Total 1000 512.4 600 480 Output Total 250 750 0 Balance 1000 262.4 -150 480 Meds/Results Medications: Active Medications Generic Name Dose Route Start Last Admin Trade Name Freq PRN Reason Stop Dose Admin Acetaminophen 500 mg 01/14/25 04:49 Acetaminophen 500 Mg Tablet PO Q4H PRN Mild Pain (1-3) or Fever Amlodipine Besylate 10 mg 01/14/25 09:00 Amlodipine Besylate 10 Mg Tablet PO DAILY ERICK Apixaban 5 mg 01/14/25 09:00 01/16/25 08:14 Apixaban 5 Mg Tablet PO 5 mg Q12HR ERICK Administration Dextrose 12.5 gm 01/13/25 22:27 Dextrose 50% 25 Gm/50 Ml Syringe IV PUSH PRN PRN Hypoglycemia Protocol Diphenhydramine HCl 25 mg 01/14/25 16:50 01/15/25 20:32 Diphenhydramine Hcl Elixir 12.5 Mg/5 Ml Udc PO 25 mg Q6H PRN Administration Itching Furosemide 40 mg 01/14/25 09:00 01/16/25 08:14 Furosemide 40 Mg Tablet PO 40 mg DAILY ERCIK Administration Glucagon 1 mg 01/13/25 22:27 Glucagon For Inj 1 Mg Vial IM PRN PRN Hypoglycemia Protocol Glucose 15 gm 01/13/25 22:27 Glucose Oral Gel 15 Gm Of Glucse In 37.5 Gm Tube PO PRN PRN Hypoglycemia Protocol Hydromorphone HCl 0.5 mg 01/14/25 10:45 01/16/25 05:37 Hydromorphone Hcl Inj (*Crx) 1 Mg/Ml Syr IV PUSH 0.5 mg Q6H PRN Administration Pain Rated 7-10 Dextrose 1,000 mls @ 100 mls/hr 01/13/25 22:27 Dextrose 5% 1,000 Ml IVPB PRN PRN Hypoglycemia Protocol Insulin Aspart 2 - 4 units 01/15/25 21:00 01/15/25 20:33 Insulin Aspart (*Bkc) 100 Units/Ml SUB-Q 2 units HS ERICK Administration Protocol Insulin Aspart 4 - 8 units 01/15/25 12:00 01/16/25 08:15 Insulin Aspart (*Bkc) 100 Units/Ml SUB-Q 6 units TIDWM ERICK Administration Protocol Insulin Glargine 45 units 01/16/25 09:00 01/16/25 08:15 Insulin Glargine (*Bkc) 100 Units/Ml SUB-Q 45 units DAILY ERICK Administration Ketorolac Tromethamine 1 drop 01/14/25 06:00 01/16/25 05:38 Ketorolac 0.5% Op Soln 5 Ml Bottle RIGHT EYE 1 drop Q6HR ERICK Administration Lisinopril 20 mg 01/14/25 09:00 Lisinopril 20 Mg Tablet PO QAM ERICK Loratadine 10 mg 01/15/25 09:00 01/16/25 08:20 Loratadine 10 Mg Tablet PO Not Given QAM ERICK Miscellaneous Information 0 each 01/14/25 00:01 Drospirenone Nonform Can Pt Bring From Home? XX 02/13/25 00:00 CLARIFY [facility] Non-Formulary Medication 4 mg 01/14/25 09:00 Drospirenone (Contraceptive) [Slynd] PO 02/13/25 08:59 DAILY ERICK Ofloxacin 1 drop 01/14/25 06:00 01/16/25 05:38 Ofloxacin 0.3% Ophth Soln 5 Ml Btl RIGHT EYE 1 drop Q6HR ERICK Administration Ondansetron HCl 4 mg 01/14/25 10:45 01/15/25 09:33 Ondansetron Inj 4 Mg/2 Ml Vial IV PUSH 4 mg Q4H PRN Administration Nausea And Vomiting Prednisolone Acetate 1 drop 01/14/25 06:00 01/16/25 05:37 Prednisolone Acetate 1% Ophth 5 Ml RIGHT EYE 1 drop Q6HR ERICK Administration Tramadol HCl 50 mg 01/14/25 04:50 01/14/25 08:35 Tramadol Hcl (*Crx) 50 Mg Tablet PO 50 mg Q6H PRN Administration Moderate Pain (Scale Score4-6) Radiology Results: ITS Impressions Shoulder CT 01/14/25 11:24 IMPRESSION: 1. Stable findings of septic arthritis of the acromioclavicular joint and glenohumeral joint and septic subacromial/subdeltoid bursitis. Chest X-Ray 01/16/25 09:12 IMPRESSION: Left lower and upper lobe atelectasis versus pneumonia. Clinical correlation and follow-up advised. Labs Labs: Laboratory Results - last 24 hr 01/15/25 01/15/25 01/15/25 12:13 16:28 20:32 WBC RBC Hgb Hct MCV MCH MCHC RDW Plt Count MPV Immature Gran % (Auto) Neut % (Auto) Lymph % (Auto) [place] % (Auto) Eos % (Auto) Baso % (Auto) Lymph # (Auto) [place] # (Auto) Eos # (Auto) Baso # (Auto) Abs Immat Gran (auto) Absolute Neuts (auto) Absolute Nucleated RBC Nucleated RBC % Sodium Potassium Chloride Carbon Dioxide Anion Gap BUN Creatinine Estim Creat Clear Calc Estimated GFR Glucose POC Capillary Glucose 202 H 307 H 278 H Calcium Phosphorus Magnesium Total Bilirubin AST ALT Alkaline Phosphatase Total Protein Albumin 01/16/25 01/16/25 06:07 08:05 WBC 11.0 H RBC 3.73 L Hgb 10.7 L Hct 36.2 L MCV 97.1 MCH 28.7 MCHC 29.6 L RDW 14.0 Plt Count 384 H MPV 9.8 Immature Gran % (Auto) 0.5 Neut % (Auto) 63.1 Lymph % (Auto) 22.0 [place] % (Auto) 7.1 Eos % (Auto) 6.8 H Baso % (Auto) 0.5 Lymph # (Auto) 2.41 [place] # (Auto) 0.8 H Eos # (Auto) 0.8 H Baso # (Auto) 0.1 Abs Immat Gran (auto) 0.06 H Absolute Neuts (auto) 6.9 H Absolute Nucleated RBC 0.000 Nucleated RBC % 0.0 Sodium 136 L Potassium 4.1 Chloride 100 Carbon Dioxide 26 Anion Gap 10 BUN 17 Creatinine 4.24 H Estim Creat Clear Calc 24 Estimated GFR 12 L Glucose 271 H POC Capillary Glucose 309 H Calcium 8.3 L Phosphorus 4.4 Magnesium 1.9 Total Bilirubin 0.4 AST 17 ALT 13 Alkaline Phosphatase 223 H Total Protein 7.0 Albumin 3.4 L
[2025-01-16 11:34] LABS: Add Urine Microscopic? YES; Appearance Urine Cloudy (Clear); Bacteria Urine 1+ /hpf; Bilirubin Urine Negative (Negative); Blood Urine 2+ (Negative); Color Urine Yellow (Yellow); Glucose Urine UA 3+ mg/dL (Negative); Ketones Urine Negative (Negative); Leukocyte Esterase Ur Negative LEU/UL (Negative); Need Manual Microscopic Reviewed; Nitrate Urine Negative (Negative); Protein Urine 3+ mg/dL (Negative); Specific Grav Ur 1.018 (1.001-1.035); Squamous Epithelial Cell Urine Many /hpf (Few); Urobilinogen Urine 0.2 mg/dL (<2.0); pH Urine 6.5 (5.0-9.0)
[2025-01-16] MEDS: cefTRIAXone 2 GM/NS 100 ML 2 GM/100 ML BAG IVPB (14:00)
[2025-01-16 14:54] LABS: Glucose Point of Care 225 mg/dl (65-105)
[2025-01-16 16:00] VITALS: BP 132/82; PULSE 90; RESP 14; TEMP 36.6; O2SAT 99
[2025-01-16 16:47] LABS: Glucose Point of Care 309 mg/dl (65-105)
[2025-01-16] MEDS: ONDANSETRON INJ 4 MG/2 ML VIAL IV PUSH (17:36)
[2025-01-16] MEDS: DOXYCYCLINE HYCLATE 100 MG TABLET PO (20:11)
[2025-01-16] MEDS: diphenhydrAMINE HCL ELIXIR 12.5 MG/5 ML UDC 25 MG PO (21:24)
[2025-01-16 23:05] VITALS: BP 132/82; PULSE 92; RESP 16; TEMP 36.4; O2SAT 100
[2025-01-17] VITALS (20 sets, daily range): BP systolic 107–153; BP diastolic 68–94; PULSE 83–95; RESP 16; TEMP 36–37; O2SAT 98
[2025-01-17] MEDS: HYDROmorphone HCL INJ (*CRX) 1 MG/ML SYR 0.5 MG IV PUSH ×4 (00:19→18:05)
[2025-01-17 01:06] LABS: Glucose Point of Care 223 mg/dl (65-105)
[2025-01-17 04:00] LABS: Basophils Percent Auto 0.3 % (0.2-1.2); Eosinophils Absolute Auto 0.8 K/mm3 (0-0.3); Eosinophils Percent Auto 6.4 % (0-4.4); Hematocrit 36.4 % (37.0-47.0); Immature Granulocyte Absolute 0.08 K/mm3 (0.00-0.031); Immature Granulocyte Percent A 0.7 % (0-0.5); Lymphocytes Absolute Auto 2.75 K/mm3 (0.9-3.2); Lymphocytes Percent Auto 23.1 % (18.3-44.2); Mean Corpuscular HGB Conc 30.2 g/dl (32-36); Mean Corpuscular Hemoglobin 29.1 pg (26-34); Mean Corpuscular Volume 96.3 fl (80-100); Mean Platelet Volume 9.9 fl (7.4-10.4); Monocytes Absolute Auto 0.7 K/mm3 (0.1-0.6); Neutrophils Absolute Auto 7.5 K/mm3 (1.3-6.7); Neutrophils Percent Auto 63.5 % (45.5-73.1); Platelet Count Result 424 k/mm3 (150-375); Red Blood Count 3.78 M/mm3 (4.2-5.4); Red Cell Distribution Width 14.2 % (11.5-14.5); White Blood Count 11.9 K/mm3 (4.5-10.0)
[2025-01-17 04:12] LABS: Alanine Aminotransferase 14 U/L (6-35); Albumin Level 3.6 g/dL (3.5-5.1); Alkaline Phosphatase 243 U/L (38-126); Anion Gap 11 mmol/L (4-12); Aspartate Amino Transferase 16 U/L (14-36); Bilirubin,Total 0.2 mg/dL (0.2-1.3); Blood Urea Nitrogen 22 mg/dL (7-17); Calcium 9.1 mg/dL (8.4-10.2); Carbon Dioxide 25 mmol/L (22-30); Chloride 102 mmol/L (98-107); Estimated CRCL calculation 18 ml/min; Estimated Glomerular Filt Rate 9; Glucose 243 mg/dL (65-110); Phosphorus 5.4 mg/dL (2.5-4.5); Potassium 4.1 mmol/L (3.4-5.0); Sodium 138 mmol/L (137-145)
[2025-01-17] MEDS: prednisoLONE ACETATE 1% OPHTH 5 ML 1 DROP RIGHT EYE ×3 (06:02→18:00)
[2025-01-17] MEDS: KETOROLAC 0.5% OP SOLN 5 ML BOTTLE 1 DROP RIGHT EYE ×3 (06:02→18:00)
[2025-01-17] MEDS: OFLOXACIN 0.3% OPHTH SOLN 5 ML BTL 1 DROP RIGHT EYE ×3 (06:02→17:59)
--- NOTE | 2025-01-17 08:28 | P.PNNP_ITS ---
Progress Note: A&P Assessment and Plan (1) End stage chronic kidney disease: Code(s): N18.6 - End stage renal disease Status: Acute Assessment and Plan: The patient has end-stage renal disease. She has been on dialysis for a little more than a year. She is managed by Dr. Millan at the dialysis unit. Her treatments have been going well at the dialysis unit. dialysis is underway. (2) Suicide attempt: Code(s): T14.91XA - Suicide attempt, initial encounter Status: Acute Assessment and Plan: The patient took carvedilol. It is unclear how many she took. blood pressures and pulse measurements have been fine (3) Hyperglycemia without ketosis: Code(s): R73.9 - Hyperglycemia, unspecified Status: Acute Assessment and Plan: Sugars were very high early on this has come down and a ranging from 100-400 hospitalists managing this (4) Type 2 diabetes mellitus with hyperosmolar hyperglycemic state (HHS): Code(s): E11.00 - Type 2 diabetes mellitus with hyperosmolarity without nonketotic hyperglycemic-hyperosmolar coma (NKHHC) Status: Acute Assessment and Plan: Management per hospitalist/braider setter. 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 She is on dialysis and tolerating it well . Blood pressure looks okay she was seen at 8:25 a.m. no chest pain or shortness of breath Exam Narrative: WDWN female in NAD skin no rash head ncat lungs clear to auscultation cor reg no rub or gallop abd BS+ nontender and soft ext no edema. Objective Data Vital Signs Vital Signs: Vital Signs - 24 hr 01/16/25 16:00 01/16/25 20:00 01/16/25 23:05 Temperature 97.9 F 97.6 F Pulse Rate 90 92 Respiratory Rate 14 16 Blood Pressure 132/82 132/82 Pulse Oximetry 99 100 Oxygen Delivery Room Air 01/17/25 07:35 01/17/25 07:46 01/17/25 08:00 Temperature 98.6 F Pulse Rate 86 84 83 Respiratory Rate 16 Blood Pressure 147/90 H 147/88 H 150/90 H Pulse Oximetry 98 Oxygen Delivery 01/17/25 08:15 Temperature Pulse Rate 84 Respiratory Rate Blood Pressure 140/87 Pulse Oximetry Oxygen Delivery Intake/Output Intake/Output: Intake & Output 01/14/25 01/15/25 01/16/25 01/17/25 23:59 23:59 23:59 23:59 Intake Total 512.4 600 1560 240 Output Total 250 750 400 600 Balance 262.4 -150 1160 -360 Meds/Results Medications: Active Medications Generic Name Dose Route Start Last Admin Trade Name Freq PRN Reason Stop Dose Admin Acetaminophen 500 mg 01/14/25 04:49 Acetaminophen 500 Mg Tablet PO Q4H PRN Mild Pain (1-3) or Fever Amlodipine Besylate 10 mg 01/14/25 09:00 Amlodipine Besylate 10 Mg Tablet PO DAILY ERICK Apixaban 5 mg 01/14/25 09:00 01/16/25 20:11 Apixaban 5 Mg Tablet PO 5 mg Q12HR ERICK Administration Dextrose 12.5 gm 01/13/25 22:27 Dextrose 50% 25 Gm/50 Ml Syringe IV PUSH PRN PRN Hypoglycemia Protocol Diphenhydramine HCl 25 mg 01/17/25 06:21 Diphenhydramine Hcl Cap 25 Mg Capsule PO Q6H PRN Itching Doxycycline Hyclate 100 mg 01/16/25 21:00 01/16/25 20:11 Doxycycline Hyclate 100 Mg Tablet PO 100 mg Q12HR ERICK Administration Furosemide 40 mg 01/14/25 09:00 01/16/25 08:14 Furosemide 40 Mg Tablet PO 40 mg DAILY ERICK Administration Glucagon 1 mg 01/13/25 22:27 Glucagon For Inj 1 Mg Vial IM PRN PRN Hypoglycemia Protocol Glucose 15 gm 01/13/25 22:27 Glucose Oral Gel 15 Gm Of Glucse In 37.5 Gm Tube PO PRN PRN Hypoglycemia Protocol Hydromorphone HCl 0.5 mg 01/14/25 10:45 01/17/25 06:09 Hydromorphone Hcl Inj (*Crx) 1 Mg/Ml Syr IV PUSH 0.5 mg Q6H PRN Administration Pain Rated 7-10 Dextrose 1,000 mls @ 100 mls/hr 01/13/25 22:27 Dextrose 5% 1,000 Ml IVPB PRN PRN Hypoglycemia Protocol Albumin Human 50 mls @ 999 mls/hr 01/16/25 09:28 Albutein IVPB 01/17/25 09:27 Q10M PRN HYPOTENSION Ceftriaxone Sodium 2 gm in 100 mls @ 200 mls/hr 01/16/25 13:45 01/16/25 14:00 Rocephin 2 Gm/Ns 100 Ml IVPB 200 mls/hr QAM ERICK Administration Insulin Aspart 2 - 4 units 01/15/25 21:00 01/16/25 20:09 Insulin Aspart (*Bkc) 100 Units/Ml SUB-Q 2 units HS ERICK Administration Protocol Insulin Aspart 4 - 8 units 01/15/25 12:00 01/16/25 16:41 Insulin Aspart (*Bkc) 100 Units/Ml SUB-Q 6 units TIDWM ERICK Administration Protocol Insulin Glargine 45 units 01/16/25 09:00 01/16/25 08:15 Insulin Glargine (*Bkc) 100 Units/Ml SUB-Q 45 units DAILY ERICK Administration Ketorolac Tromethamine 1 drop 01/14/25 06:00 01/17/25 06:02 Ketorolac 0.5% Op Soln 5 Ml Bottle RIGHT EYE 1 drop Q6HR ERICK Administration Lisinopril 20 mg 01/14/25 09:00 Lisinopril 20 Mg Tablet PO QAM ERICK Loratadine 10 mg 01/15/25 09:00 01/16/25 08:20 Loratadine 10 Mg Tablet PO Not Given QAM ERICK Miscellaneous Information 0 each 01/14/25 00:01 Drospirenone Nonform Can Pt Bring From Home? XX 02/13/25 00:00 CLARIFY ERICK Non-Formulary Medication 4 mg 01/14/25 09:00 Drospirenone (Contraceptive) [Slynd] PO 02/13/25 08:59 DAILY ERICK Ofloxacin 1 drop 01/14/25 06:00 01/17/25 06:02 Ofloxacin 0.3% Ophth Soln 5 Ml Btl RIGHT EYE 1 drop Q6HR ERICK Administration Ondansetron HCl 4 mg 01/14/25 10:45 01/16/25 17:36 Ondansetron Inj 4 Mg/2 Ml Vial IV PUSH 4 mg Q4H PRN Administration Nausea And Vomiting Prednisolone Acetate 1 drop 01/14/25 06:00 01/17/25 06:02 Prednisolone Acetate 1% Ophth 5 Ml RIGHT EYE 1 drop Q6HR ERICK Administration Tramadol HCl 50 mg 01/14/25 04:50 01/14/25 08:35 Tramadol Hcl (*Crx) 50 Mg Tablet PO 50 mg Q6H PRN Administration Moderate Pain (Scale Score4-6) Radiology Results: ITS Impressions Shoulder CT 01/14/25 11:24 IMPRESSION: 1. Stable findings of septic arthritis of the acromioclavicular joint and glenohumeral joint and septic subacromial/subdeltoid bursitis. Chest X-Ray 01/16/25 09:12 IMPRESSION: Left lower and upper lobe atelectasis versus pneumonia. Clinical correlation and follow-up advised. Foot CT 01/16/25 17:43 IMPRESSION: Heel ulcer, with induration of the subjacent tissues and likely involvement of the plantar fascia. These changes extend to the calcaneus which is sclerotic and mildly eroded, not significantly changed from the prior radiographs, probably representing chronic osteomyelitis. Recommend MRI of the foot without and with contrast for further evaluation Labs Labs: Laboratory Results - last 24 hr 01/16/25 01/16/25 01/16/25 08:05 11:18 11:29 WBC RBC Hgb Hct MCV MCH MCHC RDW Plt Count MPV Immature Gran % (Auto) Neut % (Auto) Lymph % (Auto) [place] % (Auto) Eos % (Auto) Baso % (Auto) Lymph # (Auto) [place] # (Auto) Eos # (Auto) Baso # (Auto) Abs Immat Gran (auto) Absolute Neuts (auto) Absolute Nucleated RBC Nucleated RBC % Sodium Potassium Chloride Carbon Dioxide Anion Gap BUN Creatinine Estim Creat Clear Calc Estimated GFR Glucose POC Capillary Glucose 309 H 225 H Calcium Phosphorus Total Bilirubin AST ALT Alkaline Phosphatase Total Protein Albumin Urine Color Yellow Urine Appearance Cloudy H Urine pH 6.5 Ur Specific [place] 1.018 Urine Protein 3+ H Urine Glucose (UA) 3+ H Urine Ketones Negative Ur Blood (Man) 2+ H Urine Nitrate Negative Urine Bilirubin Negative Urine Urobilinogen 0.2 Ur Leukocyte Esterase Negative Add Ur Microanalysis Reviewed Urine RBC 11-20 H Urine WBC 6-10 H Ur Squamous Epith Cells Many H Urine Bacteria 1+ H Urine Casts 6-10 01/16/25 01/16/25 01/17/25 16:39 20:06 03:46 WBC 11.9 H RBC 3.78 L Hgb 11.0 L Hct 36.4 L MCV 96.3 MCH 29.1 MCHC 30.2 L RDW 14.2 Plt Count 424 H MPV 9.9 Immature Gran % (Auto) 0.7 H Neut % (Auto) 63.5 Lymph % (Auto) 23.1 [place] % (Auto) 6.0 Eos % (Auto) 6.4 H Baso % (Auto) 0.3 Lymph # (Auto) 2.75 [place] # (Auto) 0.7 H Eos # (Auto) 0.8 H Baso # (Auto) 0.0 Abs Immat Gran (auto) 0.08 H Absolute Neuts (auto) 7.5 H Absolute Nucleated RBC 0.000 Nucleated RBC % 0.0 Sodium 138 Potassium 4.1 Chloride 102 Carbon Dioxide 25 Anion Gap 11 BUN 22 H Creatinine 5.56 H Estim Creat Clear Calc 18 Estimated GFR 9 L Glucose 243 H POC Capillary Glucose 309 H 223 H Calcium 9.1 Phosphorus 5.4 H Total Bilirubin 0.2 AST 16 ALT 14 Alkaline Phosphatase 243 H Total Protein 7.0 Albumin 3.6 Urine Color Urine Appearance Urine pH Ur Specific [place] Urine Protein Urine Glucose (UA) Urine Ketones Ur Blood (Man) Urine Nitrate Urine Bilirubin Urine Urobilinogen Ur Leukocyte Esterase Add Ur Microanalysis Urine RBC Urine WBC Ur Squamous Epith Cells Urine Bacteria Urine Casts
[2025-01-17] MEDS: APIXABAN 5 MG TABLET PO ×2 (09:09→21:50)
[2025-01-17] MEDS: diphenhydrAMINE HCl CAP 25 MG CAPSULE PO ×3 (09:09→21:50)
[2025-01-17] MEDS: LORATADINE 10 MG TABLET PO (09:10)
[2025-01-17] MEDS: FUROSEMIDE 40 MG TABLET PO (09:10)
[2025-01-17] MEDS: DOXYCYCLINE HYCLATE 100 MG TABLET PO ×2 (09:10→21:50)
[2025-01-17] MEDS: INSULIN GLARGINE (*BKC) 100 UNITS/ML 45 UNITS SUB-Q (09:11)
[2025-01-17 09:19] LABS: Glucose Point of Care 143 mg/dl (65-105)
[2025-01-17 11:45] LABS: Glucose Point of Care 160 mg/dl (65-105)
[2025-01-17] MEDS: cefTRIAXone 2 GM/NS 100 ML 2 GM/100 ML BAG IVPB (11:50)
--- NOTE | 2025-01-17 15:49 | PCCDE ---
DIABETES EDUCATION F/UP: pt was seen 01/14; attempted to f/up this am but pt in HD. INSULIN: 01/15 increased to high dose correction TID WM and HS, 01/16 Lantus increased to 45 units daily POC B/16 [phone], 01/17 143-160 PO intake: pt eating 85-100% meals RECOMMENDATIONS: Monitor glucose pattern; concern that high dose basal may cause fasting hypoglycemia. Consider using insulin order set (CKD) to reduce basal and add a scheduled meal dose of rapid acting and reduce to low correction. Discussed with RN
--- NOTE | 2025-01-17 15:57 | PM.IMPN ---
Progress Note: A&P Assessment and Plan (1) Suicide attempt by drug overdose: Code(s): T50.902A - Poisoning by unspecified drugs, medicaments and biological substances, intentional self-harm, initial encounter Status: Acute Assessment and Plan: Patient presented with suicide attempt and behavior, suggested known amount of possible Coreg -once she is medically stable will have care coordination and crisis management team evaluate the patient (2) Hyperglycemia without ketosis: Code(s): R73.9 - Hyperglycemia, unspecified Status: Acute Assessment and Plan: Hyperglycemia, nonketotic, hyperosmolar hyperglycemic state -sugars are stable now (3) End-stage renal disease on hemodialysis: Code(s): N18.6 - End stage renal disease; Z99.2 - Dependence on renal dialysis Status: Acute Assessment and Plan: End-stage renal disease, on dialysis (Mondays, Wednesdays, Fridays) -nephrology has been consulted -dialysis per Nephrology (4) Hypertension: Code(s): I10 - Essential (primary) hypertension Status: Chronic Assessment and Plan: History of hypertension, will restart amlodipine, Lasix, lisinopril (5) Chronic 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: Code(s): 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 Status: Chronic Assessment and Plan: Chronic 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 with apixaban (6) Leukocytosis: Code(s): D72.829 - Elevated white blood cell count, unspecified Status: Acute Assessment and Plan: dc iv abx continue oral abx for chronic wounds wcc slight raise maybe reactive pt has no fever cough or diarrhea rpt wcc in am and call in crisis team Subjective Date/time seen: 01/17/25 15:57 Interval history: 34-year-old female with a past medical history end-stage renal disease on hemodialysis, type 2 diabetes mellitus, blindness due to glaucoma, diabetic neuropathy, left [id number] amputation, chronic right heel diabetic/pressure ulcer who presented to the ER from home via EMS due to taking an unknown amount of an unknown medication to overdose. no specific complaints pt sp dialysis pt is still edematous pt on oral diuretics. Wcc slightly high pt looks asymptomatic no fever cough or diarrhea ok to dc iv abx. some chronic wounds healing well with oral abx. pt is registered blind, face looks swollen eye lid loks swollen too. medically much better rpt labs in am and call in crisis team Review of Systems Review of Systems: pt much improved Exam Narrative: General: Pleasant female no compliants HEENT:? Right eye pupil reactive, left eye pupil is degenerate Neck:? Supple Respiratory:? Clear lungs Cardiac:? S1-S2 normal, regular rate and rhythm Abdomen:? Soft, nontender, nondistended, normoactive bowel sounds Extremities:? Left AKA, Neuro:? Patient is awake, alert, oriented, nonfocal Skin:? right heel diabetic ulcer with clear margins, no tunneling or exposure of bone. No erythema. In the right lower extremity chronic venous stasis changes Psych:? Depressed mood and affect Objective Data Vital Signs Vital Signs: Vital Signs - 24 hr 01/16/25 16:00 01/16/25 20:00 01/16/25 23:05 Temperature 36.6 C 36.4 C Pulse Rate 90 92 Respiratory Rate 14 16 Blood Pressure 132/82 132/82 Pulse Oximetry 99 100 Oxygen Delivery Room Air 01/17/25 07:35 01/17/25 07:46 01/17/25 08:00 Temperature 37.0 C Pulse Rate 86 84 83 Respiratory Rate 16 Blood Pressure 147/90 H 147/88 H 150/90 H Pulse Oximetry 98 Oxygen Delivery 01/17/25 08:00 01/17/25 08:00 01/17/25 08:15 Temperature 36.8 C Pulse Rate 86 84 Respiratory Rate 16 Blood Pressure 133/86 140/87 Pulse Oximetry 98 Oxygen Delivery Room Air 01/17/25 08:30 01/17/25 08:45 01/17/25 09:00 Temperature Pulse Rate 85 92 93 Respiratory Rate Blood Pressure 128/86 125/74 126/74 Pulse Oximetry Oxygen Delivery 01/17/25 09:15 01/17/25 09:30 01/17/25 09:45 Temperature Pulse Rate 95 91 93 Respiratory Rate Blood Pressure 136/92 H 119/82 116/78 Pulse Oximetry Oxygen Delivery 01/17/25 10:00 01/17/25 10:15 01/17/25 10:30 Temperature Pulse Rate 89 89 90 Respiratory Rate Blood Pressure 116/68 118/74 153/92 H Pulse Oximetry Oxygen Delivery 01/17/25 10:45 01/17/25 11:02 01/17/25 11:18 Temperature Pulse Rate 87 88 93 Respiratory Rate Blood Pressure 107/92 H 127/87 116/81 Pulse Oximetry Oxygen Delivery 01/17/25 11:27 01/17/25 11:39 Temperature 37.0 C Pulse Rate 88 90 Respiratory Rate 16 16 Blood Pressure 139/94 H 122/71 Pulse Oximetry 98 98 Oxygen Delivery Intake/Output Intake/Output: Intake & Output 01/14/25 01/15/25 01/16/25 01/17/25 23:59 23:59 23:59 23:59 Intake Total 512.4 600 1660 580 Output Total 250 065 162 4455 Balance 262.4 -150 1260 -2420 Meds/Results Medications: Active Medications Generic Name Dose Route Start Last Admin Trade Name Freq PRN Reason Stop Dose Admin Acetaminophen 500 mg 01/14/25 04:49 Acetaminophen 500 Mg Tablet PO Q4H PRN Mild Pain (1-3) or Fever Amlodipine Besylate 10 mg 01/14/25 09:00 Amlodipine Besylate 10 Mg Tablet PO DAILY ERICK Apixaban 5 mg 01/14/25 09:00 01/17/25 09:09 Apixaban 5 Mg Tablet PO 5 mg Q12HR ERICK Administration Dextrose 12.5 gm 01/13/25 22:27 Dextrose 50% 25 Gm/50 Ml Syringe IV PUSH PRN PRN Hypoglycemia Protocol Diphenhydramine HCl 25 mg 01/17/25 06:21 01/17/25 15:18 Diphenhydramine Hcl Cap 25 Mg Capsule PO 25 mg Q6H PRN Administration Itching Doxycycline Hyclate 100 mg 01/16/25 21:00 01/17/25 09:10 Doxycycline Hyclate 100 Mg Tablet PO 100 mg Q12HR ERICK Administration Furosemide 40 mg 01/14/25 09:00 01/17/25 09:10 Furosemide 40 Mg Tablet PO 40 mg DAILY ERICK Administration Glucagon 1 mg 01/13/25 22:27 Glucagon For Inj 1 Mg Vial IM PRN PRN Hypoglycemia Protocol Glucose 15 gm 01/13/25 22:27 Glucose Oral Gel 15 Gm Of Glucse In 37.5 Gm Tube PO PRN PRN Hypoglycemia Protocol Hydromorphone HCl 0.5 mg 01/14/25 10:45 01/17/25 12:06 Hydromorphone Hcl Inj (*Crx) 1 Mg/Ml Syr IV PUSH 0.5 mg Q6H PRN Administration Pain Rated 7-10 Dextrose 1,000 mls @ 100 mls/hr 01/13/25 22:27 Dextrose 5% 1,000 Ml IVPB PRN PRN Hypoglycemia Protocol Ceftriaxone Sodium 2 gm in 100 mls @ 200 mls/hr 01/16/25 13:45 01/17/25 12:20 Rocephin 2 Gm/Ns 100 Ml IVPB Infused QAM ERICK Infusion Insulin Aspart 2 - 4 units 01/15/25 21:00 01/16/25 20:09 Insulin Aspart (*Bkc) 100 Units/Ml SUB-Q 2 units HS ERICK Administration Protocol Insulin Aspart 4 - 8 units 01/15/25 12:00 01/17/25 11:42 Insulin Aspart (*Bkc) 100 Units/Ml SUB-Q Not Given TIDWM [facility] Protocol Insulin Glargine 45 units 01/16/25 09:00 01/17/25 09:11 Insulin Glargine (*Bkc) 100 Units/Ml SUB-Q 45 units DAILY [facility] Administration Ketorolac Tromethamine 1 drop 01/14/25 06:00 01/17/25 11:42 Ketorolac 0.5% Op Soln 5 Ml Bottle RIGHT EYE 1 drop Q6HR [facility] Administration Lisinopril 20 mg 01/14/25 09:00 Lisinopril 20 Mg Tablet PO QAM ERICK Loratadine 10 mg 01/15/25 09:00 01/17/25 09:10 Loratadine 10 Mg Tablet PO 10 mg QAM [facility] Administration Ofloxacin 1 drop 01/14/25 06:00 01/17/25 11:42 Ofloxacin 0.3% Ophth Soln 5 Ml Btl RIGHT EYE 1 drop Q6HR ERICK Administration Ondansetron HCl 4 mg 01/14/25 10:45 01/16/25 17:36 Ondansetron Inj 4 Mg/2 Ml Vial IV PUSH 4 mg Q4H PRN Administration Nausea And Vomiting Prednisolone Acetate 1 drop 01/14/25 06:00 01/17/25 11:42 Prednisolone Acetate 1% Ophth 5 Ml RIGHT EYE 1 drop Q6HR ERICK Administration Tramadol HCl 50 mg 01/14/25 04:50 01/14/25 08:35 Tramadol Hcl (*Crx) 50 Mg Tablet PO 50 mg Q6H PRN Administration Moderate Pain (Scale Score4-6) Radiology Results: ITS Impressions Shoulder CT 01/14/25 11:24 IMPRESSION: 1. Stable findings of septic arthritis of the acromioclavicular joint and glenohumeral joint and septic subacromial/subdeltoid bursitis. Chest X-Ray 01/16/25 09:12 IMPRESSION: Left lower and upper lobe atelectasis versus pneumonia. Clinical correlation and follow-up advised. Foot CT 01/16/25 17:43 IMPRESSION: Heel ulcer, with induration of the subjacent tissues and likely involvement of the plantar fascia. These changes extend to the calcaneus which is sclerotic and mildly eroded, not significantly changed from the prior radiographs, probably representing chronic osteomyelitis. Recommend MRI of the foot without and with contrast for further evaluation Labs Labs: Laboratory Results - last 24 hr 01/16/25 01/16/25 01/17/25 16:39 20:06 03:46 WBC 11.9 H RBC 3.78 L Hgb 11.0 L Hct 36.4 L MCV 96.3 MCH 29.1 MCHC 30.2 L RDW 14.2 Plt Count 424 H MPV 9.9 Immature Gran % (Auto) 0.7 H Neut % (Auto) 63.5 Lymph % (Auto) 23.1 [place] % (Auto) 6.0 Eos % (Auto) 6.4 H Baso % (Auto) 0.3 Lymph # (Auto) 2.75 [place] # (Auto) 0.7 H Eos # (Auto) 0.8 H Baso # (Auto) 0.0 Abs Immat Gran (auto) 0.08 H Absolute Neuts (auto) 7.5 H Absolute Nucleated RBC 0.000 Nucleated RBC % 0.0 Sodium 138 Potassium 4.1 Chloride 102 Carbon Dioxide 25 Anion Gap 11 BUN 22 H Creatinine 5.56 H Estim Creat Clear Calc 18 Estimated GFR 9 L Glucose 243 H POC Capillary Glucose 309 H 223 H Calcium 9.1 Phosphorus 5.4 H Total Bilirubin 0.2 AST 16 ALT 14 Alkaline Phosphatase 243 H Total Protein 7.0 Albumin 3.6 01/17/25 01/17/25 09:06 11:41 WBC RBC Hgb Hct MCV MCH MCHC RDW Plt Count MPV Immature Gran % (Auto) Neut % (Auto) Lymph % (Auto) [place] % (Auto) Eos % (Auto) Baso % (Auto) Lymph # (Auto) [place] # (Auto) Eos # (Auto) Baso # (Auto) Abs Immat Gran (auto) Absolute Neuts (auto) Absolute Nucleated RBC Nucleated RBC % Sodium Potassium Chloride Carbon Dioxide Anion Gap BUN Creatinine Estim Creat Clear Calc Estimated GFR Glucose POC Capillary Glucose 143 H 160 H Calcium Phosphorus Total Bilirubin AST ALT Alkaline Phosphatase Total Protein Albumin
[2025-01-17 16:58] LABS: Glucose Point of Care 378 mg/dl (65-105)
[2025-01-17] MEDS: INSULIN ASPART (*BKC) 100 UNITS/ML SUB-Q ×2 (17:00→21:50)
[2025-01-17 21:06] LABS: Glucose Point of Care 280 mg/dl (65-105)
[2025-01-18] MEDS: HYDROmorphone HCL INJ (*CRX) 1 MG/ML SYR 0.5 MG IV PUSH ×5 (00:17→23:31)
[2025-01-18 00:23] VITALS: BP 123/74; PULSE 86; RESP 18; TEMP 36.6; O2SAT 98
[2025-01-18] MEDS: OFLOXACIN 0.3% OPHTH SOLN 5 ML BTL 1 DROP RIGHT EYE ×5 (00:25→23:31)
[2025-01-18] MEDS: prednisoLONE ACETATE 1% OPHTH 5 ML 1 DROP RIGHT EYE ×5 (00:25→23:31)
[2025-01-18] MEDS: KETOROLAC 0.5% OP SOLN 5 ML BOTTLE 1 DROP RIGHT EYE ×5 (00:25→23:31)
[2025-01-18 04:39] LABS: Hematocrit 34.8 % (37.0-47.0); Hemoglobin 10.4 g/dL (12.0-15.0); Mean Corpuscular HGB Conc 29.9 g/dl (32-36); Mean Corpuscular Hemoglobin 28.9 pg (26-34); Mean Corpuscular Volume 96.7 fl (80-100); Mean Platelet Volume 9.2 fl (7.4-10.4); Platelet Count Result 377 k/mm3 (150-375); Red Cell Distribution Width 13.8 % (11.5-14.5); White Blood Count 10.2 K/mm3 (4.5-10.0)
[2025-01-18 04:54] LABS: Anion Gap 5 mmol/L (4-12); Blood Urea Nitrogen 17 mg/dL (7-17); Calcium 8.5 mg/dL (8.4-10.2); Carbon Dioxide 32 mmol/L (22-30); Chloride 100 mmol/L (98-107); Estimated CRCL calculation 22 ml/min; Estimated Glomerular Filt Rate 11; Glucose 114 mg/dL (65-110); Potassium 4.1 mmol/L (3.4-5.0); Sodium 137 mmol/L (137-145)
[2025-01-18 08:00] VITALS: BP 111/70; PULSE 87; RESP 18; TEMP 36.9; O2SAT 100
--- NOTE | 2025-01-18 08:04 | PM.PNNEP ---
Progress Note: A&P Assessment and Plan (1) End stage chronic kidney disease: Code(s): N18.6 - End stage renal disease Status: Acute Assessment and Plan: The patient has end-stage renal disease. She has been on dialysis for a little more than a year. She is managed by Dr. Millan at the dialysis unit. Her treatments have been going well at the dialysis unit. she did well in dialysis yesterday. Potassium is okay today. Volume status looks good. Will treat again tomorrow. (2) Suicide attempt: Code(s): T14.91XA - Suicide attempt, initial encounter Status: Acute Assessment and Plan: The patient took carvedilol. It is unclear how many she took. blood pressures and pulse measurements have been fine She is still on suicide precaution (3) Hyperglycemia without ketosis: Code(s): R73.9 - Hyperglycemia, unspecified Status: Acute Assessment and Plan: Sugars were very high early on this has come down and a ranging from 143-370 hospitalists managing this (4) Type 2 diabetes mellitus with hyperosmolar hyperglycemic state (HHS): Code(s): E11.00 - Type 2 diabetes mellitus with hyperosmolarity without nonketotic hyperglycemic-hyperosmolar coma (NKHHC) Status: Acute Assessment and Plan: Management per hospitalist/postal superintendent. 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 She feels about the same she is still itching. She has hypoallergenic sheets and is getting PRNs for the itching. Exam Narrative: WDWN female in NAD skin no rash Or subcu nodules head ncat lungs clear to auscultation cor reg no rub or gallop abd BS+ nontender and soft ext no edema or cyanosis. Objective Data Vital Signs Vital Signs: Vital Signs - 24 hr 01/17/25 08:15 01/17/25 08:30 01/17/25 08:45 Temperature Pulse Rate 84 85 92 Respiratory Rate Blood Pressure 140/87 128/86 125/74 Pulse Oximetry Oxygen Delivery 01/17/25 09:00 01/17/25 09:15 01/17/25 09:30 Temperature Pulse Rate 93 95 91 Respiratory Rate Blood Pressure 126/74 136/92 H 119/82 Pulse Oximetry Oxygen Delivery 01/17/25 09:45 01/17/25 10:00 01/17/25 10:15 Temperature Pulse Rate 93 89 89 Respiratory Rate Blood Pressure 116/78 116/68 118/74 Pulse Oximetry Oxygen Delivery 01/17/25 10:30 01/17/25 10:45 01/17/25 11:02 Temperature Pulse Rate 90 87 88 Respiratory Rate Blood Pressure 153/92 H 107/92 H 127/87 Pulse Oximetry Oxygen Delivery 01/17/25 11:18 01/17/25 11:27 01/17/25 11:39 Temperature 98.6 F Pulse Rate 93 88 90 Respiratory Rate 16 16 Blood Pressure 116/81 139/94 H 122/71 Pulse Oximetry 98 98 Oxygen Delivery 01/17/25 16:00 01/17/25 20:00 01/18/25 00:23 Temperature 98.6 F 97.9 F Pulse Rate 91 91 86 Respiratory Rate 16 16 18 Blood Pressure 140/83 123/74 Pulse Oximetry 98 98 98 Oxygen Delivery Room Air Intake/Output Intake/Output: Intake & Output 01/15/25 01/16/25 01/17/25 01/18/25 23:59 23:59 23:59 23:59 Intake Total 600 1660 820 Output Total 666 256 1263 0 Balance -150 1260 -2780 0 Meds/Results Medications: Active Medications Generic Name Dose Route Start Last Admin Trade Name Freq PRN Reason Stop Dose Admin Acetaminophen 500 mg 01/14/25 04:49 Acetaminophen 500 Mg Tablet PO Q4H PRN Mild Pain (1-3) or Fever Amlodipine Besylate 10 mg 01/14/25 09:00 Amlodipine Besylate 10 Mg Tablet PO DAILY ERICK Apixaban 5 mg 01/14/25 09:00 01/17/25 21:50 Apixaban 5 Mg Tablet PO 5 mg Q12HR [facility] [place] Administration Dextrose 12.5 gm 01/13/25 22:27 Dextrose 50% 25 Gm/50 Ml Syringe IV PUSH PRN PRN Hypoglycemia Protocol Diphenhydramine HCl 25 mg 01/17/25 06:21 01/17/25 21:50 Diphenhydramine Hcl Cap 25 Mg Capsule PO 25 mg Q6H PRN Administration Itching Doxycycline Hyclate 100 mg 01/16/25 21:00 01/17/25 21:50 Doxycycline Hyclate 100 Mg Tablet PO 100 mg Q12HR ERICK Administration Furosemide 40 mg 01/14/25 09:00 01/17/25 09:10 Furosemide 40 Mg Tablet PO 40 mg DAILY ERICK Administration Glucagon 1 mg 01/13/25 22:27 Glucagon For Inj 1 Mg Vial IM PRN PRN Hypoglycemia Protocol Glucose 15 gm 01/13/25 22:27 Glucose Oral Gel 15 Gm Of Glucse In 37.5 Gm Tube PO PRN PRN Hypoglycemia Protocol Hydromorphone HCl 0.5 mg 01/14/25 10:45 01/18/25 06:30 Hydromorphone Hcl Inj (*Crx) 1 Mg/Ml Syr IV PUSH 0.5 mg Q6H PRN Administration Pain Rated 7-10 Dextrose 1,000 mls @ 100 mls/hr 01/13/25 22:27 Dextrose 5% 1,000 Ml IVPB PRN PRN Hypoglycemia Protocol Insulin Aspart 2 - 4 units 01/15/25 21:00 01/17/25 21:50 Insulin Aspart (*Bkc) 100 Units/Ml SUB-Q 2 units HS ERICK Administration Protocol Insulin Aspart 4 - 8 units 01/15/25 12:00 01/17/25 17:00 Insulin Aspart (*Bkc) 100 Units/Ml SUB-Q 8 units TIDWM ERICK Administration Protocol Insulin Glargine 45 units 01/16/25 09:00 01/17/25 09:11 Insulin Glargine (*Bkc) 100 Units/Ml SUB-Q 45 units DAILY ERICK Administration Ketorolac Tromethamine 1 drop 01/14/25 06:00 01/18/25 06:31 Ketorolac 0.5% Op Soln 5 Ml Bottle RIGHT EYE 1 drop Q6HR ERICK Administration Lisinopril 20 mg 01/14/25 09:00 Lisinopril 20 Mg Tablet PO QAM ERICK Loratadine 10 mg 01/15/25 09:00 01/17/25 09:10 Loratadine 10 Mg Tablet PO 10 mg QAM ERICK Administration Ofloxacin 1 drop 01/14/25 06:00 01/18/25 06:31 Ofloxacin 0.3% Ophth Soln 5 Ml Btl RIGHT EYE 1 drop Q6HR ERICK Administration Ondansetron HCl 4 mg 01/14/25 10:45 01/16/25 17:36 Ondansetron Inj 4 Mg/2 Ml Vial IV PUSH 4 mg Q4H PRN Administration Nausea And Vomiting Prednisolone Acetate 1 drop 01/14/25 06:00 01/18/25 06:31 Prednisolone Acetate 1% Ophth 5 Ml RIGHT EYE 1 drop Q6HR ERICK Administration Tramadol HCl 50 mg 01/14/25 04:50 01/14/25 08:35 Tramadol Hcl (*Crx) 50 Mg Tablet PO 50 mg Q6H PRN Administration Moderate Pain (Scale Score4-6) Radiology Results: ITS Impressions Shoulder CT 01/14/25 11:24 IMPRESSION: 1. Stable findings of septic arthritis of the acromioclavicular joint and glenohumeral joint and septic subacromial/subdeltoid bursitis. Chest X-Ray 01/16/25 09:12 IMPRESSION: Left lower and upper lobe atelectasis versus pneumonia. Clinical correlation and follow-up advised. Foot CT 01/16/25 17:43 IMPRESSION: Heel ulcer, with induration of the subjacent tissues and likely involvement of the plantar fascia. These changes extend to the calcaneus which is sclerotic and mildly eroded, not significantly changed from the prior radiographs, probably representing chronic osteomyelitis. Recommend MRI of the foot without and with contrast for further evaluation Labs Labs: Laboratory Results - last 24 hr 01/17/25 01/17/25 01/17/25 09:06 11:41 16:55 WBC RBC Hgb Hct MCV MCH MCHC RDW Plt Count MPV Sodium Potassium Chloride Carbon Dioxide Anion Gap BUN Creatinine Estim Creat Clear Calc Estimated GFR Glucose POC Capillary Glucose 143 H 160 H 378 H Calcium 01/17/25 01/18/25 21:03 04:32 WBC 10.2 H RBC 3.60 L Hgb 10.4 L Hct 34.8 L MCV 96.7 MCH 28.9 MCHC 29.9 L RDW 13.8 Plt Count 377 H MPV 9.2 Sodium 137 Potassium 4.1 Chloride 100 Carbon Dioxide 32 H Anion Gap 5 BUN 17 Creatinine 4.50 H Estim Creat Clear Calc 22 Estimated GFR 11 L Glucose 114 H POC Capillary Glucose 280 H Calcium 8.5
[2025-01-18] MEDS: INSULIN GLARGINE (*BKC) 100 UNITS/ML 45 UNITS SUB-Q (08:17)
[2025-01-18] MEDS: DOXYCYCLINE HYCLATE 100 MG TABLET PO (08:21)
[2025-01-18] MEDS: APIXABAN 5 MG TABLET PO ×2 (08:21→20:15)
[2025-01-18] MEDS: FUROSEMIDE 40 MG TABLET PO (08:22)
[2025-01-18] MEDS: LORATADINE 10 MG TABLET PO (08:22)
--- NOTE | 2025-01-18 09:18 | PM.IMPN ---
Progress Note: A&P Assessment and Plan (1) Suicide attempt by drug overdose: Code(s): T50.902A - Poisoning by unspecified drugs, medicaments and biological substances, intentional self-harm, initial encounter Status: Acute Assessment and Plan: Patient presented with suicide attempt and behavior, suggested known amount of possible Coreg -patient is medically stable, will have care coordination and crisis management team evaluate the patient (2) Hyperglycemia without ketosis: Code(s): R73.9 - Hyperglycemia, unspecified Status: Acute Assessment and Plan: Hyperglycemia, nonketotic, hyperosmolar hyperglycemic state -sugars are stable now -continue sliding scale insulin, Accu-Cheks and Lantus (3) End-stage renal disease on hemodialysis: Code(s): N18.6 - End stage renal disease; Z99.2 - Dependence on renal dialysis Status: Acute Assessment and Plan: End-stage renal disease, on dialysis (Mondays, Wednesdays, Fridays) -nephrology has been consulted -dialysis per Nephrology (4) Hypertension: Code(s): I10 - Essential (primary) hypertension Status: Chronic Assessment and Plan: History of hypertension, -continue Lasix -holding lisinopril and amlodipine as blood pressures is stable (5) Chronic 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: Code(s): Z79.01 - long-term (current) use of 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 Status: Chronic Assessment and Plan: Chronic 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 with apixaban (6) Leukocytosis: Code(s): D72.829 - Elevated white blood cell count, unspecified Status: Acute Assessment and Plan: IV antibiotics were discontinued -continue oral abx for chronic wounds -WBC count trending down -patient has been afebrile, denies any fevers, cough, diarrhea, dysuria -will have crisis management evaluate the patient Plan DVT prophylaxis: Apixaban Stress ulcer prophylaxis: Not indicated Nutrition: Fatigue diet, safe trace Code Status: Full code Due to a high probability of clinically significant, life threatening deterioration, the patient required my highest level of preparedness to intervene emergently and I personally spent this critical care time directly and personally managing the patient. This critical care time included obtaining a history; examining the patient; pulse oximetry; ordering and review of studies; arranging urgent treatment with development of a management plan; evaluation of patient's response to treatment; frequent reassessment; and discussions with other providers. It was exclusive of separately billable procedures and treating other patients and teaching time. Please see Assessment and Plan section and the rest of the note for further information on patient assessment and treatment This dictation may have been done utilizing a voice recognition system. Attempts have been made to correct errors. However, there may be uncorrected grammatical, spelling, and recognitions errors present. Subjective Date/time seen: 01/18/25 09:18 Interval history: 34-year-old female with a past medical history end-stage renal disease on hemodialysis, type 2 diabetes mellitus, blindness due to glaucoma, diabetic neuropathy, left [id number] amputation, chronic right heel diabetic/pressure ulcer who presented to the ER from home via EMS due to taking an unknown amount of an unknown medication to overdose. no specific complaints pt sp dialysis pt is still edematous pt on oral diuretics. 01/18/2025: Patient sitting up in bed, in no acute distress, complains of some itching. WBC count trending down. Afebrile, asymptomatic, denies any nausea, vomiting, diarrhea. Hemodynamically stable, had dialysis done yesterday with 2400 mL in fluid removed Review of Systems Review of Systems: All systems reviewed & are unremarkable except as noted in HPI and below Exam Narrative: General: Pleasant female complains of right shoulder pain HEENT:? Right eye pupil reactive, left eye pupil is degenerate Neck:? Supple Respiratory:? Coarse breath sounds bilaterally, decreased at bases Cardiac:? S1-S2 normal, regular rate and rhythm Abdomen:? Soft, nontender, nondistended, normoactive bowel sounds Extremities:? Left AKA, Neuro:? Patient is awake, alert, oriented, nonfocal Skin:? right heel diabetic ulcer with clear margins, no tunneling or exposure of bone. No erythema. In the right lower extremity chronic venous stasis changes Psych:? Normal mood and affect Objective Data Vital Signs Vital Signs: Vital Signs - 24 hr 01/17/25 09:30 01/17/25 09:45 01/17/25 10:00 Temperature Pulse Rate 91 93 89 Respiratory Rate Blood Pressure 119/82 116/78 116/68 Pulse Oximetry Oxygen Delivery 01/17/25 10:15 01/17/25 10:30 01/17/25 10:45 Temperature Pulse Rate 89 90 87 Respiratory Rate Blood Pressure 118/74 153/92 H 107/92 H Pulse Oximetry Oxygen Delivery 01/17/25 11:02 01/17/25 11:18 01/17/25 11:27 Temperature 98.6 F Pulse Rate 88 93 88 Respiratory Rate 16 Blood Pressure 127/87 116/81 139/94 H Pulse Oximetry 98 Oxygen Delivery 01/17/25 11:39 01/17/25 16:00 01/17/25 20:00 Temperature 98.6 F Pulse Rate 90 91 91 Respiratory Rate 16 16 16 Blood Pressure 122/71 140/83 Pulse Oximetry 98 98 98 Oxygen Delivery Room Air 01/18/25 00:23 01/18/25 08:00 01/18/25 08:00 Temperature 97.9 F 98.5 F Pulse Rate 86 87 87 Respiratory Rate 18 18 18 Blood Pressure 123/74 111/70 Pulse Oximetry 98 100 100 Oxygen Delivery Room Air Intake/Output Intake/Output: Intake & Output 01/15/25 01/16/25 01/17/25 01/18/25 23:59 23:59 23:59 23:59 Intake Total 600 1660 820 240 Output Total 306 038 4397 0 Balance -150 1260 -2780 240 Meds/Results Medications: Active Medications Generic Name Dose Route Start Last Admin Trade Name Freq PRN Reason Stop Dose Admin Acetaminophen 500 mg 01/14/25 04:49 Acetaminophen 500 Mg Tablet PO Q4H PRN Mild Pain (1-3) or Fever Amlodipine Besylate 10 mg 01/14/25 09:00 Amlodipine Besylate 10 Mg Tablet PO DAILY ERICK Apixaban 5 mg 01/14/25 09:00 01/18/25 08:21 Apixaban 5 Mg Tablet PO 5 mg Q12HR ERICK Administration Dextrose 12.5 gm 01/13/25 22:27 Dextrose 50% 25 Gm/50 Ml Syringe IV PUSH PRN PRN Hypoglycemia Protocol Diphenhydramine HCl 25 mg 01/17/25 06:21 01/17/25 21:50 Diphenhydramine Hcl Cap 25 Mg Capsule PO 25 mg Q6H PRN Administration Itching Doxycycline Hyclate 100 mg 01/16/25 21:00 01/18/25 08:21 Doxycycline Hyclate 100 Mg Tablet PO 100 mg Q12HR ERICK Administration Furosemide 40 mg 01/14/25 09:00 01/18/25 08:22 Furosemide 40 Mg Tablet PO 40 mg DAILY ERICK Administration Glucagon 1 mg 01/13/25 22:27 Glucagon For Inj 1 Mg Vial IM PRN PRN Hypoglycemia Protocol Glucose 15 gm 01/13/25 22:27 Glucose Oral Gel 15 Gm Of Glucse In 37.5 Gm Tube PO PRN PRN Hypoglycemia Protocol Hydromorphone HCl 0.5 mg 01/14/25 10:45 01/18/25 06:30 Hydromorphone Hcl Inj (*Crx) 1 Mg/Ml Syr IV PUSH 0.5 mg Q6H PRN Administration Pain Rated 7-10 Dextrose 1,000 mls @ 100 mls/hr 01/13/25 22:27 Dextrose 5% 1,000 Ml IVPB PRN PRN Hypoglycemia Protocol Albumin Human 50 mls @ 999 mls/hr 01/18/25 08:06 Albutein IVPB 01/19/25 08:05 Q10M PRN HYPOTENSION Insulin Aspart 2 - 4 units 01/15/25 21:00 01/17/25 21:50 Insulin Aspart (*Bkc) 100 Units/Ml SUB-Q 2 units HS ERICK Administration Protocol Insulin Aspart 4 - 8 units 01/15/25 12:00 01/18/25 08:16 Insulin Aspart (*Bkc) 100 Units/Ml SUB-Q Not Given TIDWM ERICK Protocol Insulin Glargine 45 units 01/16/25 09:00 01/18/25 08:17 Insulin Glargine (*Bkc) 100 Units/Ml SUB-Q 45 units DAILY ERICK Administration Ketorolac Tromethamine 1 drop 01/14/25 06:00 01/18/25 06:31 Ketorolac 0.5% Op Soln 5 Ml Bottle RIGHT EYE 1 drop Q6HR ERICK Administration Lisinopril 20 mg 01/14/25 09:00 Lisinopril 20 Mg Tablet PO QAM ERICK Loratadine 10 mg 01/15/25 09:00 01/18/25 08:22 Loratadine 10 Mg Tablet PO 10 mg QAM ERICK Administration Ofloxacin 1 drop 01/14/25 06:00 01/18/25 06:31 Ofloxacin 0.3% Ophth Soln 5 Ml Btl RIGHT EYE 1 drop Q6HR ERICK Administration Ondansetron HCl 4 mg 01/14/25 10:45 01/16/25 17:36 Ondansetron Inj 4 Mg/2 Ml Vial IV PUSH 4 mg Q4H PRN Administration Nausea And Vomiting Prednisolone Acetate 1 drop 01/14/25 06:00 01/18/25 06:31 Prednisolone Acetate 1% Ophth 5 Ml RIGHT EYE 1 drop Q6HR ERICK Administration Tramadol HCl 50 mg 01/14/25 04:50 01/14/25 08:35 Tramadol Hcl (*Crx) 50 Mg Tablet PO 50 mg Q6H PRN Administration Moderate Pain (Scale Score4-6) Radiology Results: ITS Impressions Shoulder CT 01/14/25 11:24 IMPRESSION: 1. Stable findings of septic arthritis of the acromioclavicular joint and glenohumeral joint and septic subacromial/subdeltoid bursitis. Chest X-Ray 01/16/25 09:12 IMPRESSION: Left lower and upper lobe atelectasis versus pneumonia. Clinical correlation and follow-up advised. Foot CT 01/16/25 17:43 IMPRESSION: Heel ulcer, with induration of the subjacent tissues and likely involvement of the plantar fascia. These changes extend to the calcaneus which is sclerotic and mildly eroded, not significantly changed from the prior radiographs, probably representing chronic osteomyelitis. Recommend MRI of the foot without and with contrast for further evaluation Labs Labs: Laboratory Results - last 24 hr 01/17/25 01/17/25 01/17/25 09:06 11:41 16:55 WBC RBC Hgb Hct MCV MCH MCHC RDW Plt Count MPV Sodium Potassium Chloride Carbon Dioxide Anion Gap BUN Creatinine Estim Creat Clear Calc Estimated GFR Glucose POC Capillary Glucose 143 H 160 H 378 H Calcium 01/17/25 01/18/25 21:03 04:32 WBC 10.2 H RBC 3.60 L Hgb 10.4 L Hct 34.8 L MCV 96.7 MCH 28.9 MCHC 29.9 L RDW 13.8 Plt Count 377 H MPV 9.2 Sodium 137 Potassium 4.1 Chloride 100 Carbon Dioxide 32 H Anion Gap 5 BUN 17 Creatinine 4.50 H Estim Creat Clear Calc 22 Estimated GFR 11 L Glucose 114 H POC Capillary Glucose 280 H Calcium 8.5 Quality VTE Prophylaxis VTE prophylaxis: pharmacologic ordered
[2025-01-18 11:43] LABS: Glucose Point of Care 341 mg/dl (65-105)
[2025-01-18] MEDS: INSULIN ASPART (*BKC) 100 UNITS/ML SUB-Q ×3 (11:49→20:14)
[2025-01-18] MEDS: levoFLOXacin 750 MG TABLET PO (15:21)
[2025-01-18] MEDS: metroNIDAZOLE 500 MG TABLET PO ×2 (15:22→20:15)
[2025-01-18] MEDS: diphenhydrAMINE HCl CAP 25 MG CAPSULE PO (15:23)
[2025-01-18 16:41] LABS: Glucose Point of Care 288 mg/dl (65-105)
[2025-01-18 20:00] VITALS: BP 129/91; PULSE 86; RESP 16; TEMP 36.7; O2SAT 100
[2025-01-18 20:21] LABS: Glucose Point of Care 235 mg/dl (65-105)
--- NOTE | 2025-01-18 21:57 | PC.NURSE ---
1815- Spoke with Tameka about placement. No beds at [facility] or [facility] at this time.
[2025-01-19] VITALS (22 sets, daily range): BP systolic 95–146; BP diastolic 51–90; PULSE 82–107; RESP 15–16; TEMP 36.7–37.1; O2SAT 97–100
[2025-01-19] MEDS: diphenhydrAMINE HCl CAP 25 MG CAPSULE PO ×4 (02:01→21:34)
[2025-01-19 04:49] LABS: Basophils Percent Auto 0.4 % (0.2-1.2); Eosinophils Absolute Auto 0.9 K/mm3 (0-0.3); Eosinophils Percent Auto 8.4 % (0-4.4); Hemoglobin 10.7 g/dL (12.0-15.0); Immature Granulocyte Absolute 0.06 K/mm3 (0.00-0.031); Immature Granulocyte Percent A 0.5 % (0-0.5); Lymphocytes Absolute Auto 1.96 K/mm3 (0.9-3.2); Lymphocytes Percent Auto 17.7 % (18.3-44.2); Mean Corpuscular HGB Conc 29.7 g/dl (32-36); Mean Corpuscular Hemoglobin 29.1 pg (26-34); Mean Corpuscular Volume 97.8 fl (80-100); Mean Platelet Volume 9.6 fl (7.4-10.4); Monocytes Absolute Auto 0.9 K/mm3 (0.1-0.6); Monocytes Percent Auto 8.2 % (2.6-8.5); Neutrophils Absolute Auto 7.2 K/mm3 (1.3-6.7); Neutrophils Percent Auto 64.8 % (45.5-73.1); Platelet Count Result 441 k/mm3 (150-375); Red Blood Count 3.68 M/mm3 (4.2-5.4); Red Cell Distribution Width 13.9 % (11.5-14.5); White Blood Count 11.1 K/mm3 (4.5-10.0)
[2025-01-19 05:07] LABS: Alanine Aminotransferase 15 U/L (6-35); Albumin Level 3.5 g/dL (3.5-5.1); Alkaline Phosphatase 205 U/L (38-126); Anion Gap 10 mmol/L (4-12); Aspartate Amino Transferase 16 U/L (14-36); Bilirubin,Total 0.2 mg/dL (0.2-1.3); Blood Urea Nitrogen 28 mg/dL (7-17); Calcium 8.5 mg/dL (8.4-10.2); Carbon Dioxide 26 mmol/L (22-30); Chloride 101 mmol/L (98-107); Estimated CRCL calculation 17 ml/min; Estimated Glomerular Filt Rate 8; Glucose 252 mg/dL (65-110); Magnesium 1.8 mg/dL (1.6-2.3); Phosphorus 5.7 mg/dL (2.5-4.5); Potassium 4.4 mmol/L (3.4-5.0); Sodium 137 mmol/L (137-145)
[2025-01-19] MEDS: KETOROLAC 0.5% OP SOLN 5 ML BOTTLE 1 DROP RIGHT EYE ×3 (05:11→16:43)
[2025-01-19] MEDS: HYDROmorphone HCL INJ (*CRX) 1 MG/ML SYR 0.5 MG IV PUSH ×3 (05:12→19:36)
[2025-01-19] MEDS: prednisoLONE ACETATE 1% OPHTH 5 ML 1 DROP RIGHT EYE ×3 (05:12→16:43)
[2025-01-19] MEDS: metroNIDAZOLE 500 MG TABLET PO ×3 (05:12→21:33)
[2025-01-19] MEDS: OFLOXACIN 0.3% OPHTH SOLN 5 ML BTL 1 DROP RIGHT EYE ×3 (05:12→16:43)
--- NOTE | 2025-01-19 06:19 | PC.NURSE ---
0600- This RN received a call from [facility] facility stating they cannot accept the patient due to her medical needs.
[2025-01-19] MEDS: ONDANSETRON INJ 4 MG/2 ML VIAL IV PUSH (09:08)
--- NOTE | 2025-01-19 09:08 | PC.NURSE ---
0820-Taken to dialysis per bed.
--- NOTE | 2025-01-19 09:55 | P.PNNP_ITS ---
Progress Note: A&P Assessment and Plan (1) End stage chronic kidney disease: Code(s): N18.6 - End stage renal disease Status: Acute Assessment and Plan: The patient has end-stage renal disease. She has been on dialysis for a little more than a year. She is managed by Dr. Millan at the dialysis unit. Her treatments have been going well at the dialysis unit. Dialysis is underway. Volume status looks okay (2) Suicide attempt: Code(s): T14.91XA - Suicide attempt, initial encounter Status: Acute Assessment and Plan: The patient took carvedilol. It is unclear how many she took. blood pressures and pulse measurements have been fine She is still on suicide precaution (3) Hyperglycemia without ketosis: Code(s): R73.9 - Hyperglycemia, unspecified Status: Acute Assessment and Plan: Sugars were very high early on this has come down and a ranging from [phone] hospitalists managing this (4) Type 2 diabetes mellitus with hyperosmolar hyperglycemic state (HHS): Code(s): E11.00 - Type 2 diabetes mellitus with hyperosmolarity without nonketotic hyperglycemic-hyperosmolar coma ([facility]) Status: Acute Assessment and Plan: Management per hospitalist/superintendent car construction. 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 will see what it is tomorrow and decide about EPO than (7) Hypertension: Code(s): I10 - Essential (primary) hypertension Status: Chronic Assessment and Plan: systolic ranging from 100 to 130 Subjective Date/time seen: 01/19/25 09:55 Interval history: Patient is on dialysis and tolerating it well. He was seen at 9:25 a.m. Still itching. She is getting p.r.n. medicines and is on hypoallergenic sheets Exam Narrative: WDWN female in NAD skin no rash Or subcu nodules head ncat lungs clear cor reg no rub or gallop abd BS+ nontender and soft ext no edema Objective Data Vital Signs Vital Signs: Vital Signs - 24 hr 01/18/25 20:00 01/18/25 20:00 01/19/25 07:50 Temperature 98.1 F 98.1 F Pulse Rate 86 Respiratory Rate 16 Blood Pressure 129/91 H Pulse Oximetry 100 100 Oxygen Delivery Room Air 01/19/25 08:00 01/19/25 08:35 01/19/25 08:48 Temperature 98.4 F Pulse Rate 86 90 91 Respiratory Rate 16 16 Blood Pressure 115/67 127/64 Pulse Oximetry 100 100 Oxygen Delivery Room Air 01/19/25 09:00 01/19/25 09:15 01/19/25 09:30 Temperature Pulse Rate 87 99 94 Respiratory Rate Blood Pressure 118/72 107/78 125/83 Pulse Oximetry Oxygen Delivery 01/19/25 09:45 Temperature Pulse Rate 88 Respiratory Rate Blood Pressure 122/79 Pulse Oximetry Oxygen Delivery Intake/Output Intake/Output: Intake & Output 01/16/25 01/17/25 01/18/25 01/19/25 23:59 23:59 23:59 23:59 Intake Total 1660 820 960 400 Output Total 400 3600 0 600 Balance 1260 -2780 960 -200 Meds/Results Medications: Active Medications Generic Name Dose Route Start Last Admin Trade Name Freq PRN Reason Stop Dose Admin Acetaminophen 500 mg 01/14/25 04:49 Acetaminophen 500 Mg Tablet PO Q4H PRN Mild Pain (1-3) or Fever Amlodipine Besylate 10 mg 01/14/25 09:00 Amlodipine Besylate 10 Mg Tablet PO DAILY ERICK Apixaban 5 mg 01/14/25 09:00 01/18/25 20:15 Apixaban 5 Mg Tablet PO 5 mg Q12HR ERICK Administration Dextrose 12.5 gm 01/13/25 22:27 Dextrose 50% 25 Gm/50 Ml Syringe IV PUSH PRN PRN Hypoglycemia Protocol Diphenhydramine HCl 25 mg 01/17/25 06:21 01/19/25 09:08 Diphenhydramine Hcl Cap 25 Mg Capsule PO 25 mg Q6H PRN Administration Itching Furosemide 40 mg 01/14/25 09:00 01/18/25 08:22 Furosemide 40 Mg Tablet PO 40 mg DAILY ERICK Administration Glucagon 1 mg 01/13/25 22:27 Glucagon For Inj 1 Mg Vial IM PRN PRN Hypoglycemia Protocol Glucose 15 gm 01/13/25 22:27 Glucose Oral Gel 15 Gm Of Glucse In 37.5 Gm Tube PO PRN PRN Hypoglycemia Protocol Hydromorphone HCl 0.5 mg 01/14/25 10:45 01/19/25 05:12 Hydromorphone Hcl Inj (*Crx) 1 Mg/Ml Syr IV PUSH 0.5 mg Q6H PRN Administration Pain Rated 7-10 Dextrose 1,000 mls @ 100 mls/hr 01/13/25 22:27 Dextrose 5% 1,000 Ml IVPB PRN PRN Hypoglycemia Protocol Insulin Aspart 2 - 4 units 01/15/25 21:00 01/18/25 20:14 Insulin Aspart (*Bkc) 100 Units/Ml SUB-Q 2 units HS ERICK Administration Protocol Insulin Aspart 4 - 8 units 01/15/25 12:00 01/18/25 16:41 Insulin Aspart (*Bkc) 100 Units/Ml SUB-Q 5 units TIDWM ERICK Administration Protocol Insulin Glargine 45 units 01/16/25 09:00 01/18/25 08:17 Insulin Glargine (*Bkc) 100 Units/Ml SUB-Q 45 units DAILY ERICK Administration Ketorolac Tromethamine 1 drop 01/14/25 06:00 01/19/25 05:11 Ketorolac 0.5% Op Soln 5 Ml Bottle RIGHT EYE 1 drop Q6HR ERICK Administration Levofloxacin 500 mg 01/20/25 09:00 Levofloxacin 500 Mg Tablet PO 01/24/25 09:01 Q48HR ERICK Lisinopril 20 mg 01/14/25 09:00 Lisinopril 20 Mg Tablet PO QAM ERICK Loratadine 10 mg 01/15/25 09:00 01/18/25 08:22 Loratadine 10 Mg Tablet PO 10 mg QAM ERICK Administration Metronidazole 500 mg 01/18/25 14:00 01/19/25 05:12 Metronidazole 500 Mg Tablet PO 01/25/25 06:01 500 mg Q8HR ERICK Administration Ofloxacin 1 drop 01/14/25 06:00 01/19/25 05:12 Ofloxacin 0.3% Ophth Soln 5 Ml Btl RIGHT EYE 1 drop Q6HR ERICK Administration Ondansetron HCl 4 mg 01/14/25 10:45 01/19/25 09:08 Ondansetron Inj 4 Mg/2 Ml Vial IV PUSH 4 mg Q4H PRN Administration Nausea And Vomiting Prednisolone Acetate 1 drop 01/14/25 06:00 01/19/25 05:12 Prednisolone Acetate 1% Ophth 5 Ml RIGHT EYE 1 drop Q6HR ERICK Administration Tramadol HCl 50 mg 01/14/25 04:50 01/14/25 08:35 Tramadol Hcl (*Crx) 50 Mg Tablet PO 50 mg Q6H PRN Administration Moderate Pain (Scale Score4-6) Radiology Results: ITS Impressions Shoulder CT 01/14/25 11:24 IMPRESSION: 1. Stable findings of septic arthritis of the acromioclavicular joint and glenohumeral joint and septic subacromial/subdeltoid bursitis. Chest X-Ray 01/16/25 09:12 IMPRESSION: Left lower and upper lobe atelectasis versus pneumonia. Clinical correlation and follow-up advised. Foot CT 01/16/25 17:43 IMPRESSION: Heel ulcer, with induration of the subjacent tissues and likely involvement of the plantar fascia. These changes extend to the calcaneus which is sclerotic and mildly eroded, not significantly changed from the prior radiographs, probably representing chronic osteomyelitis. Recommend MRI of the foot without and with contrast for further evaluation Labs Labs: Laboratory Results - last 24 hr 01/18/25 01/18/25 01/18/25 11:40 16:39 20:13 WBC RBC Hgb Hct MCV MCH MCHC RDW Plt Count MPV Immature Gran % (Auto) Neut % (Auto) Lymph % (Auto) [place] % (Auto) Eos % (Auto) Baso % (Auto) Lymph # (Auto) [place] # (Auto) Eos # (Auto) Baso # (Auto) Abs Immat Gran (auto) Absolute Neuts (auto) Absolute Nucleated RBC Nucleated RBC % Sodium Potassium Chloride Carbon Dioxide Anion Gap BUN Creatinine Estim Creat Clear Calc Estimated GFR Glucose POC Capillary Glucose 341 H 288 H 235 H Calcium Phosphorus Magnesium Total Bilirubin AST ALT Alkaline Phosphatase Total Protein Albumin 01/19/25 04:43 WBC 11.1 H RBC 3.68 L Hgb 10.7 L Hct 36.0 L MCV 97.8 MCH 29.1 MCHC 29.7 L RDW 13.9 Plt Count 441 H MPV 9.6 Immature Gran % (Auto) 0.5 Neut % (Auto) 64.8 Lymph % (Auto) 17.7 L [place] % (Auto) 8.2 Eos % (Auto) 8.4 H Baso % (Auto) 0.4 Lymph # (Auto) 1.96 [place] # (Auto) 0.9 H Eos # (Auto) 0.9 H Baso # (Auto) 0.0 Abs Immat Gran (auto) 0.06 H Absolute Neuts (auto) 7.2 H Absolute Nucleated RBC 0.000 Nucleated RBC % 0.0 Sodium 137 Potassium 4.4 Chloride 101 Carbon Dioxide 26 Anion Gap 10 BUN 28 H D Creatinine 5.78 H Estim Creat Clear Calc 17 Estimated GFR 8 L Glucose 252 H POC Capillary Glucose Calcium 8.5 Phosphorus 5.7 H Magnesium 1.8 Total Bilirubin 0.2 AST 16 ALT 15 Alkaline Phosphatase 205 H Total Protein 7.0 Albumin 3.5
[2025-01-19 12:18] LABS: Glucose Point of Care 196 mg/dl (65-105)
[2025-01-19] MEDS: HEPARIN SODIUM 1,000 UNITS/ML VIAL 6000 UNITS IV PUSH (12:30)
[2025-01-19] MEDS: FUROSEMIDE 40 MG TABLET PO (12:47)
[2025-01-19] MEDS: APIXABAN 5 MG TABLET PO ×2 (12:47→20:38)
[2025-01-19] MEDS: LORATADINE 10 MG TABLET PO (12:47)
[2025-01-19] MEDS: INSULIN GLARGINE (*BKC) 100 UNITS/ML 45 UNITS SUB-Q (12:52)
[2025-01-19 13:01] LABS: Glucose Point of Care 155 mg/dl (65-105)
--- NOTE | 2025-01-19 13:14 | PM.IMPN ---
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 (2) Hyperglycemia without ketosis: Code(s): R73.9 - Hyperglycemia, unspecified Status: Acute Assessment and Plan: Hyperglycemia, nonketotic, hyperosmolar hyperglycemic state -sugars are stable now -continue sliding scale insulin, Accu-Cheks and Lantus (3) End-stage renal disease on hemodialysis: Code(s): N18.6 - End stage renal disease; Z99.2 - Dependence on renal dialysis Status: Acute Assessment and Plan: End-stage renal disease, on dialysis (Mondays, Wednesdays, Fridays) -nephrology has been consulted -dialysis per Nephrology (4) Hypertension: Code(s): I10 - Essential (primary) hypertension Status: Chronic Assessment and Plan: History of hypertension, -continue Lasix -holding lisinopril and amlodipine as blood pressures is stable (5) Chronic 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: Code(s): Z79.01 - custodial (current) use of 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 Status: Chronic Assessment and Plan: Chronic 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 with apixaban (6) Leukocytosis: Code(s): D72.829 - Elevated white blood cell count, unspecified Status: Acute Assessment and Plan: IV antibiotics were discontinued -continue oral abx for chronic wounds -WBC count trending down -patient has been afebrile, denies any fevers, cough, diarrhea, dysuria -will have crisis management evaluate the patient Plan DVT prophylaxis: Apixaban Stress ulcer prophylaxis: Not indicated Nutrition: Fatigue diet, safe trace Code Status: Full code Subjective Date/time seen: 01/19/25 13:14 Interval history: Comfortable at bedside Review of Systems Review of Systems: pt much improved All systems reviewed & are unremarkable except as noted in HPI and below Exam Narrative: General: Pleasant female complains of right shoulder pain HEENT:? Right eye pupil reactive, left eye pupil is degenerate Neck:? Supple Respiratory:? Coarse breath sounds bilaterally, decreased at bases Cardiac:? S1-S2 normal, regular rate and rhythm Abdomen:? Soft, nontender, nondistended, normoactive bowel sounds Extremities:? Left AKA, Neuro:? Patient is awake, alert, oriented, nonfocal Skin:? right heel diabetic ulcer with clear margins, no tunneling or exposure of bone. No erythema. In the right lower extremity chronic venous stasis changes Psych:? Normal mood and affect Const: Other: obese, chronically ill-appearing, appears older stated age HENMT: Other: mucous membranes are tacky, no oral pharyngeal erythema, crowded posterior oropharynx, head is normocephalic atraumatic Eyes: Other: patient has chronic scarring to the left cornea / pupil with opacification of the globe, right eye demonstrates lens replacement and is minimally reactive, patient's eyes are deviated in upward gaze bilaterally, positive conjunctival pallor, no scleral icterus Neck: Other: large neck circumference, asymmetry to the lymph nodes of the neck in the anterior cervical chain right greater than left Chest: Other: Tunneled dialysis catheter in left chest with sutures in place but the line is no longer secured by the broken sutures Resp: Other: decreased breath sounds at the bases, no increased work of breathing Cardio: Other: regular rate, regular rhythm, 2+ bilateral radial pulses, 1+ right pedal pulse GI: Other: obese, nontender, positive bowel sounds Skin: Other: chronic decubitus wound to the right calcaneus, otherwise skin is cool to touch, no other open wounds noted, left above the knee amputation stump site in good condition Neuro: Other: alert oriented x4, speech is clear, no facial asymmetry, deviation of bilateral eyes upward with chronic pupillary changes, decreased sensation to the hands bilaterally and to the right foot consistent with hip patient's history of diabetic peripheral neuropathy Extrem: Other: above the knee amputation, chronic right calcaneus wound without evidence of drainage or surrounding erythema wound is clean and dry Psych: Other: depressed mood, flat affect, cooperative, poor judgment and insight Objective Data Vital Signs Vital Signs: Vital Signs - 24 hr 01/18/25 20:00 01/18/25 20:00 01/19/25 07:50 Temperature 98.1 F 98.1 F Pulse Rate 86 Respiratory Rate 16 Blood Pressure 129/91 H Pulse Oximetry 100 100 Oxygen Delivery Room Air 01/19/25 08:00 01/19/25 08:35 01/19/25 08:48 Temperature 98.4 F Pulse Rate 86 90 91 Respiratory Rate 16 16 Blood Pressure 115/67 127/64 Pulse Oximetry 100 100 Oxygen Delivery Room Air 01/19/25 09:00 01/19/25 09:15 01/19/25 09:30 Temperature Pulse Rate 87 99 94 Respiratory Rate Blood Pressure 118/72 107/78 125/83 Pulse Oximetry Oxygen Delivery 01/19/25 09:45 01/19/25 10:00 01/19/25 10:15 Temperature Pulse Rate 88 93 98 Respiratory Rate Blood Pressure 122/79 126/75 95/51 L Pulse Oximetry Oxygen Delivery 01/19/25 10:30 01/19/25 10:45 01/19/25 11:00 Temperature Pulse Rate 90 92 107 H Respiratory Rate Blood Pressure 125/84 117/71 114/66 Pulse Oximetry Oxygen Delivery 01/19/25 11:15 01/19/25 11:30 01/19/25 11:45 Temperature Pulse Rate 100 93 94 Respiratory Rate Blood Pressure 98/51 L 110/72 116/75 Pulse Oximetry Oxygen Delivery 01/19/25 12:00 01/19/25 12:15 01/19/25 12:22 Temperature Pulse Rate 94 96 96 Respiratory Rate Blood Pressure 125/80 111/72 127/86 Pulse Oximetry Oxygen Delivery 01/19/25 12:25 Temperature 98.4 F Pulse Rate 82 Respiratory Rate 16 Blood Pressure 146/90 H Pulse Oximetry 100 Oxygen Delivery Intake/Output Intake/Output: Intake & Output 01/16/25 01/17/25 01/18/25 01/19/25 23:59 23:59 23:59 23:59 Intake Total 1660 820 960 400 Output Total 400 3600 0 3100 Balance 1260 -2780 960 -2700 Meds/Results Medications: Active Medications Generic Name Dose Route Start Last Admin Trade Name Freq PRN Reason Stop Dose Admin Acetaminophen 500 mg 01/14/25 04:49 Acetaminophen 500 Mg Tablet PO Q4H PRN Mild Pain (1-3) or Fever Amlodipine Besylate 10 mg 01/14/25 09:00 Amlodipine Besylate 10 Mg Tablet PO DAILY ERICK Apixaban 5 mg 01/14/25 09:00 01/19/25 12:47 Apixaban 5 Mg Tablet PO 5 mg Q12HR ERICK Administration Dextrose 12.5 gm 01/13/25 22:27 Dextrose 50% 25 Gm/50 Ml Syringe IV PUSH PRN PRN Hypoglycemia Protocol Diphenhydramine HCl 25 mg 01/17/25 06:21 01/19/25 09:08 Diphenhydramine Hcl Cap 25 Mg Capsule PO 25 mg Q6H PRN Administration Itching Furosemide 40 mg 01/14/25 09:00 01/19/25 12:47 Furosemide 40 Mg Tablet PO 40 mg DAILY ERICK Administration Glucagon 1 mg 01/13/25 22:27 Glucagon For Inj 1 Mg Vial IM PRN PRN Hypoglycemia Protocol Glucose 15 gm 01/13/25 22:27 Glucose Oral Gel 15 Gm Of Glucse In 37.5 Gm Tube PO PRN PRN Hypoglycemia Protocol Hydromorphone HCl 0.5 mg 01/14/25 10:45 01/19/25 12:53 Hydromorphone Hcl Inj (*Crx) 1 Mg/Ml Syr IV PUSH 0.5 mg Q6H PRN Administration Pain Rated 7-10 Dextrose 1,000 mls @ 100 mls/hr 01/13/25 22:27 Dextrose 5% 1,000 Ml IVPB PRN PRN Hypoglycemia Protocol Insulin Aspart 2 - 4 units 01/15/25 21:00 01/18/25 20:14 Insulin Aspart (*Bkc) 100 Units/Ml SUB-Q 2 units HS ERICK Administration Protocol Insulin Aspart 4 - 8 units 01/15/25 12:00 01/19/25 12:52 Insulin Aspart (*Bkc) 100 Units/Ml SUB-Q Not Given TIDWM ERICK Protocol Insulin Glargine 45 units 01/16/25 09:00 01/19/25 12:52 Insulin Glargine (*Bkc) 100 Units/Ml SUB-Q 45 units DAILY ERICK Administration Ketorolac Tromethamine 1 drop 01/14/25 06:00 01/19/25 12:48 Ketorolac 0.5% Op Soln 5 Ml Bottle RIGHT EYE 1 drop Q6HR ERICK Administration Levofloxacin 500 mg 01/20/25 09:00 Levofloxacin 500 Mg Tablet PO 01/24/25 09:01 Q48HR ERICK Lisinopril 20 mg 01/14/25 09:00 Lisinopril 20 Mg Tablet PO QAM ERICK Loratadine 10 mg 01/15/25 09:00 01/19/25 12:47 Loratadine 10 Mg Tablet PO 10 mg QAM ERICK Administration Metronidazole 500 mg 01/18/25 14:00 01/19/25 05:12 Metronidazole 500 Mg Tablet PO 01/25/25 06:01 500 mg Q8HR ERICK Administration Ofloxacin 1 drop 01/14/25 06:00 01/19/25 12:48 Ofloxacin 0.3% Ophth Soln 5 Ml Btl RIGHT EYE 1 drop Q6HR ERICK Administration Ondansetron HCl 4 mg 01/14/25 10:45 01/19/25 09:08 Ondansetron Inj 4 Mg/2 Ml Vial IV PUSH 4 mg Q4H PRN Administration Nausea And Vomiting Prednisolone Acetate 1 drop 01/14/25 06:00 01/19/25 12:48 Prednisolone Acetate 1% Ophth 5 Ml RIGHT EYE 1 drop Q6HR ERICK Administration Tramadol HCl 50 mg 01/14/25 04:50 01/14/25 08:35 Tramadol Hcl (*Crx) 50 Mg Tablet PO 50 mg Q6H PRN Administration Moderate Pain (Scale Score4-6) Radiology Results: ITS Impressions Shoulder CT 01/14/25 11:24 IMPRESSION: 1. Stable findings of septic arthritis of the acromioclavicular joint and glenohumeral joint and septic subacromial/subdeltoid bursitis. Chest X-Ray 01/16/25 09:12 IMPRESSION: Left lower and upper lobe atelectasis versus pneumonia. Clinical correlation and follow-up advised. Foot CT 01/16/25 17:43 IMPRESSION: Heel ulcer, with induration of the subjacent tissues and likely involvement of the plantar fascia. These changes extend to the calcaneus which is sclerotic and mildly eroded, not significantly changed from the prior radiographs, probably representing chronic osteomyelitis. Recommend MRI of the foot without and with contrast for further evaluation Labs Labs: Laboratory Results - last 24 hr 01/18/25 01/18/25 01/19/25 16:39 20:13 04:43 WBC 11.1 H RBC 3.68 L Hgb 10.7 L Hct 36.0 L MCV 97.8 MCH 29.1 MCHC 29.7 L RDW 13.9 Plt Count 441 H MPV 9.6 Immature Gran % (Auto) 0.5 Neut % (Auto) 64.8 Lymph % (Auto) 17.7 L [place] % (Auto) 8.2 Eos % (Auto) 8.4 H Baso % (Auto) 0.4 Lymph # (Auto) 1.96 [place] # (Auto) 0.9 H Eos # (Auto) 0.9 H Baso # (Auto) 0.0 Abs Immat Gran (auto) 0.06 H Absolute Neuts (auto) 7.2 H Absolute Nucleated RBC 0.000 Nucleated RBC % 0.0 Sodium 137 Potassium 4.4 Chloride 101 Carbon Dioxide 26 Anion Gap 10 BUN 28 H D Creatinine 5.78 H Estim Creat Clear Calc 17 Estimated GFR 8 L Glucose 252 H POC Capillary Glucose 288 H 235 H Calcium 8.5 Phosphorus 5.7 H Magnesium 1.8 Total Bilirubin 0.2 AST 16 ALT 15 Alkaline Phosphatase 205 H Total Protein 7.0 Albumin 3.5 01/19/25 01/19/25 07:09 12:44 WBC RBC Hgb Hct MCV MCH MCHC RDW Plt Count MPV Immature Gran % (Auto) Neut % (Auto) Lymph % (Auto) [place] % (Auto) Eos % (Auto) Baso % (Auto) Lymph # (Auto) [place] # (Auto) Eos # (Auto) Baso # (Auto) Abs Immat Gran (auto) Absolute Neuts (auto) Absolute Nucleated RBC Nucleated RBC % Sodium Potassium Chloride Carbon Dioxide Anion Gap BUN Creatinine Estim Creat Clear Calc Estimated GFR Glucose POC Capillary Glucose 196 H 155 H Calcium Phosphorus Magnesium Total Bilirubin AST ALT Alkaline Phosphatase Total Protein Albumin Quality VTE Prophylaxis VTE prophylaxis: pharmacologic ordered
[2025-01-19 13:51] LABS: SPREG INTERNAL CONTROL Positive; Serum Qual hCG Negative
[2025-01-19 14:31] LABS: SARS-CoV-2 RNA PCR Negative (Negative)
[2025-01-19 16:26] LABS: Glucose Point of Care 263 mg/dl (65-105)
[2025-01-19] MEDS: INSULIN ASPART (*BKC) 100 UNITS/ML SUB-Q ×2 (16:44→20:38)
[2025-01-19 20:35] LABS: Glucose Point of Care 260 mg/dl (65-105)
[2025-01-20] MEDS: prednisoLONE ACETATE 1% OPHTH 5 ML 1 DROP RIGHT EYE ×4 (00:15→17:57)
[2025-01-20] MEDS: OFLOXACIN 0.3% OPHTH SOLN 5 ML BTL 1 DROP RIGHT EYE ×4 (00:17→17:57)
[2025-01-20] MEDS: KETOROLAC 0.5% OP SOLN 5 ML BOTTLE 1 DROP RIGHT EYE ×4 (00:22→17:57)
[2025-01-20] MEDS: HYDROmorphone HCL INJ (*CRX) 1 MG/ML SYR 0.5 MG IV PUSH ×4 (01:45→20:36)
[2025-01-20 04:38] LABS: Basophils Absolute Auto 0.1 K/mm3 (0.0-0.1); Basophils Percent Auto 0.5 % (0.2-1.2); Eosinophils Percent Auto 9.3 % (0-4.4); Hematocrit 37.6 % (37.0-47.0); Hemoglobin 11.2 g/dL (12.0-15.0); Immature Granulocyte Absolute 0.08 K/mm3 (0.00-0.031); Immature Granulocyte Percent A 0.7 % (0-0.5); Lymphocytes Absolute Auto 2.31 K/mm3 (0.9-3.2); Lymphocytes Percent Auto 20.9 % (18.3-44.2); Mean Corpuscular HGB Conc 29.8 g/dl (32-36); Mean Corpuscular Hemoglobin 28.9 pg (26-34); Mean Corpuscular Volume 96.9 fl (80-100); Mean Platelet Volume 9.6 fl (7.4-10.4); Monocytes Percent Auto 8.9 % (2.6-8.5); Neutrophils Absolute Auto 6.6 K/mm3 (1.3-6.7); Neutrophils Percent Auto 59.7 % (45.5-73.1); Platelet Count Result 444 k/mm3 (150-375); Red Blood Count 3.88 M/mm3 (4.2-5.4); Red Cell Distribution Width 13.7 % (11.5-14.5)
[2025-01-20 04:52] LABS: Alanine Aminotransferase 14 U/L (6-35); Albumin Level 3.6 g/dL (3.5-5.1); Alkaline Phosphatase 218 U/L (38-126); Anion Gap 10 mmol/L (4-12); Aspartate Amino Transferase 17 U/L (14-36); Bilirubin,Total 0.3 mg/dL (0.2-1.3); Blood Urea Nitrogen 22 mg/dL (7-17); Calcium 8.4 mg/dL (8.4-10.2); Carbon Dioxide 30 mmol/L (22-30); Chloride 98 mmol/L (98-107); Estimated CRCL calculation 19 ml/min; Estimated Glomerular Filt Rate 10; Glucose 162 mg/dL (65-110); Magnesium 1.8 mg/dL (1.6-2.3); Phosphorus 5.8 mg/dL (2.5-4.5); Potassium 4.5 mmol/L (3.4-5.0); Sodium 138 mmol/L (137-145)
[2025-01-20] MEDS: metroNIDAZOLE 500 MG TABLET PO ×3 (06:39→20:36)
[2025-01-20 08:00] VITALS: BP 134/99; PULSE 96; RESP 16; TEMP 36.7; O2SAT 100
[2025-01-20 08:27] LABS: Glucose Point of Care 111 mg/dl (65-105)
[2025-01-20] MEDS: levoFLOXacin 500 MG TABLET PO (08:49)
[2025-01-20] MEDS: FUROSEMIDE 40 MG TABLET PO (08:49)
[2025-01-20] MEDS: LORATADINE 10 MG TABLET PO (08:49)
[2025-01-20] MEDS: APIXABAN 5 MG TABLET PO ×2 (08:49→20:36)
[2025-01-20] MEDS: INSULIN GLARGINE (*BKC) 100 UNITS/ML 45 UNITS SUB-Q (08:53)
[2025-01-20] MEDS: diphenhydrAMINE HCl CAP 25 MG CAPSULE PO ×2 (10:11→20:36)
[2025-01-20 11:27] LABS: Glucose Point of Care 255 mg/dl (65-105)
[2025-01-20] MEDS: INSULIN ASPART (*BKC) 100 UNITS/ML SUB-Q ×3 (11:27→21:09)
--- NOTE | 2025-01-20 11:39 | PCFNICU ---
ICU Rounding Note: Pt current nutrition is DBCC. Last recorded weight is 117.2 kg, down from 120.7 kg on admit. Dialysis pt. Bowel Motility: Last reported BM 01/11 Labs Reviewed: Glu 162, Cr 5.17, GFR 10 , BUN 22 Meds Noted:Lantus, Eliquis, NovoLog, Lasix, Flagyl Skin:right heel-diabetic Additional Notes: Patient remains on DBCC diet. Oral Intake has been > 75% of meals. Agree with diet orders. Dialysis 01/19. Awaiting placement. Will monitor weight, labs, skin, diet orders, meds every 7 days.
--- NOTE | 2025-01-20 12:08 | P.PNIM_ITS ---
Progress Note: A&P Assessment and Plan (1) Suicide attempt by drug overdose: Code(s): T50.902A - Poisoning by unspecified drugs, medicaments and biological substances, intentional self-harm, initial encounter Status: Acute Assessment and Plan: Patient presented with suicide attempt and behavior, suggested known amount of possible Coreg -patient is medically stable, will have care coordination and crisis management team evaluate the patient -crisis team met with patient, discussed with me on 01/18/2025 that the feel unsafe for her to sign a contract to go back home. She has attempted suicide x2 before and this time also. So sending her back home will be basically setting her up in the same environment again. -crisis team was going to reach out to different facilities which have Psychiatry as well as dialysis capabilities (2) Hyperglycemia without ketosis: Code(s): R73.9 - Hyperglycemia, unspecified Status: Acute Assessment and Plan: Hyperglycemia, nonketotic, hyperosmolar hyperglycemic state -sugars are stable now -continue sliding scale insulin, Accu-Cheks and Lantus (3) End-stage renal disease on hemodialysis: Code(s): N18.6 - End stage renal disease; Z99.2 - Dependence on renal dialysis Status: Acute Assessment and Plan: End-stage renal disease, on dialysis (Mondays, Wednesdays, Fridays) -nephrology has been consulted -dialysis per Nephrology (4) Hypertension: Code(s): I10 - Essential (primary) hypertension Status: Chronic Assessment and Plan: History of hypertension, -continue Lasix -holding lisinopril and amlodipine as blood pressures is stable (5) Chronic 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: Code(s): Z79.01 - [facility] (current) use of 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 Status: Chronic Assessment and Plan: Chronic 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 with apixaban (6) Leukocytosis: Code(s): D72.829 - Elevated white blood cell count, unspecified Status: Acute Assessment and Plan: IV antibiotics were discontinued -continue oral abx for chronic wounds -WBC count trending down and stable -patient has been afebrile, denies any fevers, cough, diarrhea, dysuria -will have crisis management evaluate the patient (7) Chronic heel ulcer: Qualifiers: Laterality: right Non-pressure ulcer stage: unspecified non-pressure ulcer stage Qualified Code(s): L97.419 - Non-pressure chronic ulcer of right heel and midfoot with unspecified severity Code(s): L97.409 - Non-pressure chronic ulcer of unspecified heel and midfoot with unspecified severity Status: Chronic Assessment and Plan: 01/16/25: Right heel ulcer growing Bacteroides not B fragilis, Prevotella species, group G Streptococcus, Pseudomonas aeruginosa -patient has been started on levofloxacin and metronidazole p.o. (01/18) -wound care following the patient Plan DVT prophylaxis: Apixaban Stress ulcer prophylaxis: Not indicated Nutrition: Fatigue diet, safe tray Code Status: Full code Due to a high probability of clinically significant, life threatening deteriora tion, the patient required my highest level of preparedness to intervene emergently and I personally spent this critical care time directly and personally managing the patient. This critical care time included obtaining a history; examining the patient; pulse oximetry; ordering and review of studies; arranging urgent treatment with development of a management plan; evaluation of patient's response to treatment; frequent reassessment; and discussions with other providers. It was exclusive of separately billable procedures and treating other patients and teaching time. Please see Assessment and Plan section and the rest of the note for further information on patient assessment and treatment This dictation may have been done utilizing a voice recognition system. Attempts have been made to correct errors. However, there may be uncorrected grammatical, spelling, and recognitions errors present. Subjective Date/time seen: 01/20/25 12:08 Interval history: Patient seen for hospitalist group Patient is pleasant, no acute distress at this time, no issues. Had dialysis done yesterday with 2500 mL in fluid removal, afebrile, hemodynamically stable, continues to put out some urine. Is tolerating p.o. diet Review of Systems Review of Systems: All systems reviewed & are unremarkable except as noted in HPI and below Exam Narrative: General: Pleasant female complains of right shoulder pain HEENT:? Right eye pupil reactive, left eye pupil is degenerate Neck:? Supple Respiratory:? Coarse breath sounds bilaterally, decreased at bases Cardiac:? S1-S2 normal, regular rate and rhythm Abdomen:? Soft, nontender, nondistended, normoactive bowel sounds Extremities:? Left AKA, Neuro:? Patient is awake, alert, oriented, nonfocal Skin:? right heel diabetic ulcer with clear margins, no tunneling or exposure of bone. No erythema. In the right lower extremity chronic venous stasis changes Psych:? Normal mood and affect Objective Data Vital Signs Vital Signs: Vital Signs - 24 hr 01/19/25 12:15 01/19/25 12:22 01/19/25 12:25 Temperature 98.4 F Pulse Rate 96 96 82 Respiratory Rate 16 Blood Pressure 111/72 127/86 146/90 H Pulse Oximetry 100 Oxygen Delivery 01/19/25 20:00 01/20/25 08:00 01/20/25 08:00 Temperature 98.2 F 98.1 F Pulse Rate 92 96 Respiratory Rate 15 16 Blood Pressure 123/84 134/99 H Pulse Oximetry 97 100 Oxygen Delivery Room Air Intake/Output Intake/Output: Intake & Output 01/17/25 01/18/25 01/19/25 01/20/25 23:59 23:59 23:59 23:59 Intake Total 933 704 4800 480 Output Total 3600 0 3300 250 Balance -2780 960 -2020 230 Meds/Results Medications: Active Medications Generic Name Dose Route Start Last Admin Trade Name Freq PRN Reason Stop Dose Admin Acetaminophen 500 mg 01/14/25 04:49 Acetaminophen 500 Mg Tablet PO Q4H PRN Mild Pain (1-3) or Fever Amlodipine Besylate 10 mg 01/14/25 09:00 Amlodipine Besylate 10 Mg Tablet PO DAILY ERICK Apixaban 5 mg 01/14/25 09:00 01/20/25 08:49 Apixaban 5 Mg Tablet PO 5 mg Q12HR ERICK Administration Dextrose 12.5 gm 01/13/25 22:27 Dextrose 50% 25 Gm/50 Ml Syringe IV PUSH PRN PRN Hypoglycemia Protocol Diphenhydramine HCl 25 mg 01/17/25 06:21 01/20/25 10:11 Diphenhydramine Hcl Cap 25 Mg Capsule PO 25 mg Q6H PRN Administration Itching Furosemide 40 mg 01/14/25 09:00 01/20/25 08:49 Furosemide 40 Mg Tablet PO 40 mg DAILY ERICK Administration Glucagon 1 mg 01/13/25 22:27 Glucagon For Inj 1 Mg Vial IM PRN PRN Hypoglycemia Protocol Glucose 15 gm 01/13/25 22:27 Glucose Oral Gel 15 Gm Of Glucse In 37.5 Gm Tube PO PRN PRN Hypoglycemia Protocol Hydromorphone HCl 0.5 mg 01/14/25 10:45 01/20/25 08:49 Hydromorphone Hcl Inj (*Crx) 1 Mg/Ml Syr IV PUSH 0.5 mg Q6H PRN Administration Pain Rated 7-10 Dextrose 1,000 mls @ 100 mls/hr 01/13/25 22:27 Dextrose 5% 1,000 Ml IVPB PRN PRN Hypoglycemia Protocol Insulin Aspart 2 - 4 units 01/15/25 21:00 01/19/25 20:38 Insulin Aspart (*Bkc) 100 Units/Ml SUB-Q 2 units HS ERICK Administration Protocol Insulin Aspart 4 - 8 units 01/15/25 12:00 01/20/25 11:27 Insulin Aspart (*Bkc) 100 Units/Ml SUB-Q 5 units TIDWM ERICK Administration Protocol Insulin Glargine 45 units 01/16/25 09:00 01/20/25 08:53 Insulin Glargine (*Bkc) 100 Units/Ml SUB-Q 45 units DAILY ERICK Administration Ketorolac Tromethamine 1 drop 01/14/25 06:00 01/20/25 11:25 Ketorolac 0.5% Op Soln 5 Ml Bottle RIGHT EYE 1 drop Q6HR ERICK Administration Levofloxacin 500 mg 01/20/25 09:00 01/20/25 08:49 Levofloxacin 500 Mg Tablet PO 01/24/25 09:01 500 mg Q48HR ERICK Administration Lisinopril 20 mg 01/14/25 09:00 Lisinopril 20 Mg Tablet PO QAM ERICK Loratadine 10 mg 01/15/25 09:00 01/20/25 08:49 Loratadine 10 Mg Tablet PO 10 mg QAM ERICK Administration Metronidazole 500 mg 01/18/25 14:00 01/20/25 06:39 Metronidazole 500 Mg Tablet PO 01/25/25 06:01 500 mg Q8HR ERICK Administration Ofloxacin 1 drop 01/14/25 06:00 01/20/25 11:25 Ofloxacin 0.3% Ophth Soln 5 Ml Btl RIGHT EYE 1 drop Q6HR ERICK Administration Ondansetron HCl 4 mg 01/14/25 10:45 01/19/25 09:08 Ondansetron Inj 4 Mg/2 Ml Vial IV PUSH 4 mg Q4H PRN Administration Nausea And Vomiting Prednisolone Acetate 1 drop 01/14/25 06:00 01/20/25 11:25 Prednisolone Acetate 1% Ophth 5 Ml RIGHT EYE 1 drop Q6HR ERICK Administration Tramadol HCl 50 mg 01/14/25 04:50 01/14/25 08:35 Tramadol Hcl (*Crx) 50 Mg Tablet PO 50 mg Q6H PRN Administration Moderate Pain (Scale Score4-6) Radiology Results: ITS Impressions Shoulder CT 01/14/25 11:24 IMPRESSION: 1. Stable findings of septic arthritis of the acromioclavicular joint and glenohumeral joint and septic subacromial/subdeltoid bursitis. Chest X-Ray 01/16/25 09:12 IMPRESSION: Left lower and upper lobe atelectasis versus pneumonia. Clinical correlation and follow-up advised. Foot CT 01/16/25 17:43 IMPRESSION: Heel ulcer, with induration of the subjacent tissues and likely involvement of the plantar fascia. These changes extend to the calcaneus which is sclerotic and mildly eroded, not significantly changed from the prior radiographs, probably representing chronic osteomyelitis. Recommend MRI of the foot without and with contrast for further evaluation Labs Labs: Laboratory Results - last 24 hr 01/19/25 01/19/25 01/19/25 04:43 07:09 12:44 WBC RBC Hgb Hct MCV MCH MCHC RDW Plt Count MPV Immature Gran % (Auto) Neut % (Auto) Lymph % (Auto) [place] % (Auto) Eos % (Auto) Baso % (Auto) Lymph # (Auto) [place] # (Auto) Eos # (Auto) Baso # (Auto) Abs Immat Gran (auto) Absolute Neuts (auto) Absolute Nucleated RBC Nucleated RBC % Sodium Potassium Chloride Carbon Dioxide Anion Gap BUN Creatinine Estim Creat Clear Calc Estimated GFR Glucose POC Capillary Glucose 196 H 155 H Calcium Phosphorus Magnesium Total Bilirubin AST ALT Alkaline Phosphatase Total Protein Albumin Serum HCG, Qual Negative SARS-CoV-2 RNA (RT-PCR) 01/19/25 01/19/25 01/19/25 13:46 16:24 20:31 WBC RBC Hgb Hct MCV MCH MCHC RDW Plt Count MPV Immature Gran % (Auto) Neut % (Auto) Lymph % (Auto) [place] % (Auto) Eos % (Auto) Baso % (Auto) Lymph # (Auto) [place] # (Auto) Eos # (Auto) Baso # (Auto) Abs Immat Gran (auto) Absolute Neuts (auto) Absolute Nucleated RBC Nucleated RBC % Sodium Potassium Chloride Carbon Dioxide Anion Gap BUN Creatinine Estim Creat Clear Calc Estimated GFR Glucose POC Capillary Glucose 263 H 260 H Calcium Phosphorus Magnesium Total Bilirubin AST ALT Alkaline Phosphatase Total Protein Albumin Serum HCG, Qual SARS-CoV-2 RNA (RT-PCR) Negative 01/20/25 01/20/25 01/20/25 04:26 08:03 11:24 WBC 11.0 H RBC 3.88 L Hgb 11.2 L Hct 37.6 MCV 96.9 MCH 28.9 MCHC 29.8 L RDW 13.7 Plt Count 444 H MPV 9.6 Immature Gran % (Auto) 0.7 H Neut % (Auto) 59.7 Lymph % (Auto) 20.9 [place] % (Auto) 8.9 H Eos % (Auto) 9.3 H Baso % (Auto) 0.5 Lymph # (Auto) 2.31 [place] # (Auto) 1.0 H Eos # (Auto) 1.0 H Baso # (Auto) 0.1 Abs Immat Gran (auto) 0.08 H Absolute Neuts (auto) 6.6 Absolute Nucleated RBC 0.000 Nucleated RBC % 0.0 Sodium 138 Potassium 4.5 Chloride 98 Carbon Dioxide 30 Anion Gap 10 BUN 22 H Creatinine 5.17 H Estim Creat Clear Calc 19 Estimated GFR 10 L Glucose 162 H POC Capillary Glucose 111 H 255 H Calcium 8.4 Phosphorus 5.8 H Magnesium 1.8 Total Bilirubin 0.3 AST 17 ALT 14 Alkaline Phosphatase 218 H Total Protein 7.0 Albumin 3.6 Serum HCG, Qual SARS-CoV-2 RNA (RT-PCR) Quality VTE Prophylaxis VTE prophylaxis: pharmacologic ordered
--- NOTE | 2025-01-20 13:46 | PM.PNNEP ---
Progress Note: A&P Assessment and Plan (1) End stage chronic kidney disease: Code(s): N18.6 - End stage renal disease Status: Acute Assessment and Plan: The patient has end-stage renal disease. She has been on dialysis for a little more than a year. She is managed by Dr. Millan at the dialysis unit. Her treatments have been going well at the dialysis unit. Dialysis due tomorrow. will write orders (2) Suicide attempt: Code(s): T14.91XA - Suicide attempt, initial encounter Status: Acute Assessment and Plan: The patient took carvedilol. It is unclear how many she took. 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 Code(s): H54.3 - Unqualified visual loss, both eyes Status: Chronic (6) Anemia: Code(s): D64.9 - Anemia, unspecified Status: Chronic Assessment and Plan: Hemoglobin is up to 11.2 will see what it is tomorrow and decide about EPO then (7) Hypertension: Code(s): I10 - Essential (primary) hypertension Status: Chronic Assessment and Plan: systolic ranging from 100 to 130 Subjective Date/time seen: 01/20/25 13:46 Interval history: alert, feels the same no cp or sob had HD yesterday Exam Narrative: WDWN female in NAD skin no rash Or subcu nodules head ncat lungs clear cor reg no rub or gallop abd BS+ nontender and soft ext no edema Objective Data Vital Signs Vital Signs: Vital Signs - 24 hr 01/19/25 20:00 01/20/25 08:00 01/20/25 08:00 Temperature 98.2 F 98.1 F Pulse Rate 92 96 Respiratory Rate 15 16 Blood Pressure 123/84 134/99 H Pulse Oximetry 97 100 Oxygen Delivery Room Air Intake/Output Intake/Output: Intake & Output 01/17/25 01/18/25 01/19/25 01/20/25 23:59 23:59 23:59 23:59 Intake Total 680 509 7865 720 Output Total 3600 0 3300 650 Balance -2780 960 -2019 70 Meds/Results Medications: Active Medications Generic Name Dose Route Start Last Admin Trade Name Freq PRN Reason Stop Dose Admin Acetaminophen 500 mg 01/14/25 04:49 Acetaminophen 500 Mg Tablet PO Q4H PRN Mild Pain (1-3) or Fever Amlodipine Besylate 10 mg 01/14/25 09:00 Amlodipine Besylate 10 Mg Tablet PO DAILY ERICK Apixaban 5 mg 01/14/25 09:00 01/20/25 08:49 Apixaban 5 Mg Tablet PO 5 mg Q12HR ERICK Administration Dextrose 12.5 gm 01/13/25 22:27 Dextrose 50% 25 Gm/50 Ml Syringe IV PUSH PRN PRN Hypoglycemia Protocol Diphenhydramine HCl 25 mg 01/17/25 06:21 01/20/25 10:11 Diphenhydramine Hcl Cap 25 Mg Capsule PO 25 mg Q6H PRN Administration Itching Furosemide 40 mg 01/14/25 09:00 01/20/25 08:49 Furosemide 40 Mg Tablet PO 40 mg DAILY ERICK Administration Glucagon 1 mg 01/13/25 22:27 Glucagon For Inj 1 Mg Vial IM PRN PRN Hypoglycemia Protocol Glucose 15 gm 01/13/25 22:27 Glucose Oral Gel 15 Gm Of Glucse In 37.5 Gm Tube PO PRN PRN Hypoglycemia Protocol Hydromorphone HCl 0.5 mg 01/14/25 10:45 01/20/25 08:49 Hydromorphone Hcl Inj (*Crx) 1 Mg/Ml Syr IV PUSH 0.5 mg Q6H PRN Administration Pain Rated 7-10 Dextrose 1,000 mls @ 100 mls/hr 01/13/25 22:27 Dextrose 5% 1,000 Ml IVPB PRN PRN Hypoglycemia Protocol Insulin Aspart 2 - 4 units 01/15/25 21:00 01/19/25 20:38 Insulin Aspart (*Bkc) 100 Units/Ml SUB-Q 2 units HS ERICK Administration Protocol Insulin Aspart 4 - 8 units 01/15/25 12:00 01/20/25 11:27 Insulin Aspart (*Bkc) 100 Units/Ml SUB-Q 5 units TIDWM ERICK Administration Protocol Insulin Glargine 45 units 01/16/25 09:00 01/20/25 08:53 Insulin Glargine (*Bkc) 100 Units/Ml SUB-Q 45 units DAILY ERICK Administration Ketorolac Tromethamine 1 drop 01/14/25 06:00 01/20/25 11:25 Ketorolac 0.5% Op Soln 5 Ml Bottle RIGHT EYE 1 drop Q6HR ERICK Administration Levofloxacin 500 mg 01/20/25 09:00 01/20/25 08:49 Levofloxacin 500 Mg Tablet PO 01/24/25 09:01 500 mg Q48HR ERICK Administration Lisinopril 20 mg 01/14/25 09:00 Lisinopril 20 Mg Tablet PO QAM ERICK Loratadine 10 mg 01/15/25 09:00 01/20/25 08:49 Loratadine 10 Mg Tablet PO 10 mg QAM [facility] Administration Metronidazole 500 mg 01/18/25 14:00 01/20/25 06:39 Metronidazole 500 Mg Tablet PO 01/25/25 06:01 500 mg Q8HR ERICK Administration Ofloxacin 1 drop 01/14/25 06:00 01/20/25 11:25 Ofloxacin 0.3% Ophth Soln 5 Ml Btl RIGHT EYE 1 drop Q6HR ERICK Administration Ondansetron HCl 4 mg 01/14/25 10:45 01/19/25 09:08 Ondansetron Inj 4 Mg/2 Ml Vial IV PUSH 4 mg Q4H PRN Administration Nausea And Vomiting Prednisolone Acetate 1 drop 01/14/25 06:00 01/20/25 11:25 Prednisolone Acetate 1% Ophth 5 Ml RIGHT EYE 1 drop Q6HR ERICK Administration Tramadol HCl 50 mg 01/14/25 04:50 01/14/25 08:35 Tramadol Hcl (*Crx) 50 Mg Tablet PO 50 mg Q6H PRN Administration Moderate Pain (Scale Score4-6) Radiology Results: ITS Impressions Shoulder CT 01/14/25 11:24 IMPRESSION: 1. Stable findings of septic arthritis of the acromioclavicular joint and glenohumeral joint and septic subacromial/subdeltoid bursitis. Chest X-Ray 01/16/25 09:12 IMPRESSION: Left lower and upper lobe atelectasis versus pneumonia. Clinical correlation and follow-up advised. Foot CT 01/16/25 17:43 IMPRESSION: Heel ulcer, with induration of the subjacent tissues and likely involvement of the plantar fascia. These changes extend to the calcaneus which is sclerotic and mildly eroded, not significantly changed from the prior radiographs, probably representing chronic osteomyelitis. Recommend MRI of the foot without and with contrast for further evaluation Labs Labs: Laboratory Results - last 24 hr 01/19/25 01/19/25 01/19/25 04:43 13:46 16:24 WBC RBC Hgb Hct MCV MCH MCHC RDW Plt Count MPV Immature Gran % (Auto) Neut % (Auto) Lymph % (Auto) [place] % (Auto) Eos % (Auto) Baso % (Auto) Lymph # (Auto) [place] # (Auto) Eos # (Auto) Baso # (Auto) Abs Immat Gran (auto) Absolute Neuts (auto) Absolute Nucleated RBC Nucleated RBC % Sodium Potassium Chloride Carbon Dioxide Anion Gap BUN Creatinine Estim Creat Clear Calc Estimated GFR Glucose POC Capillary Glucose 263 H Calcium Phosphorus Magnesium Total Bilirubin AST ALT Alkaline Phosphatase Total Protein Albumin Serum HCG, Qual Negative SARS-CoV-2 RNA (RT-PCR) Negative 01/19/25 01/20/25 01/20/25 20:31 04:26 08:03 WBC 11.0 H RBC 3.88 L Hgb 11.2 L Hct 37.6 MCV 96.9 MCH 28.9 MCHC 29.8 L RDW 13.7 Plt Count 444 H MPV 9.6 Immature Gran % (Auto) 0.7 H Neut % (Auto) 59.7 Lymph % (Auto) 20.9 [place] % (Auto) 8.9 H Eos % (Auto) 9.3 H Baso % (Auto) 0.5 Lymph # (Auto) 2.31 [place] # (Auto) 1.0 H Eos # (Auto) 1.0 H Baso # (Auto) 0.1 Abs Immat Gran (auto) 0.08 H Absolute Neuts (auto) 6.6 Absolute Nucleated RBC 0.000 Nucleated RBC % 0.0 Sodium 138 Potassium 4.5 Chloride 98 Carbon Dioxide 30 Anion Gap 10 BUN 22 H Creatinine 5.17 H Estim Creat Clear Calc 19 Estimated GFR 10 L Glucose 162 H POC Capillary Glucose 260 H 111 H Calcium 8.4 Phosphorus 5.8 H Magnesium 1.8 Total Bilirubin 0.3 AST 17 ALT 14 Alkaline Phosphatase 218 H Total Protein 7.0 Albumin 3.6 Serum HCG, Qual SARS-CoV-2 RNA (RT-PCR) 01/20/25 11:24 WBC RBC Hgb Hct MCV MCH MCHC RDW Plt Count MPV Immature Gran % (Auto) Neut % (Auto) Lymph % (Auto) [place] % (Auto) Eos % (Auto) Baso % (Auto) Lymph # (Auto) [place] # (Auto) Eos # (Auto) Baso # (Auto) Abs Immat Gran (auto) Absolute Neuts (auto) Absolute Nucleated RBC Nucleated RBC % Sodium Potassium Chloride Carbon Dioxide Anion Gap BUN Creatinine Estim Creat Clear Calc Estimated GFR Glucose POC Capillary Glucose 255 H Calcium Phosphorus Magnesium Total Bilirubin AST ALT Alkaline Phosphatase Total Protein Albumin Serum HCG, Qual SARS-CoV-2 RNA (RT-PCR)
[2025-01-20 16:00] VITALS: BP 126/87; PULSE 98; RESP 16; TEMP 36.7; O2SAT 100
[2025-01-20 16:34] LABS: Glucose Point of Care 215 mg/dl (65-105)
[2025-01-20 21:08] LABS: Glucose Point of Care 209 mg/dl (65-105)
[2025-01-21] VITALS (20 sets, daily range): BP systolic 97–127; BP diastolic 64–89; PULSE 91–104; RESP 18–117; TEMP 36.7–37; O2SAT 97–100
[2025-01-21] MEDS: OFLOXACIN 0.3% OPHTH SOLN 5 ML BTL 1 DROP RIGHT EYE ×4 (00:27→20:04)
[2025-01-21] MEDS: prednisoLONE ACETATE 1% OPHTH 5 ML 1 DROP RIGHT EYE ×4 (00:27→20:04)
[2025-01-21] MEDS: KETOROLAC 0.5% OP SOLN 5 ML BOTTLE 1 DROP RIGHT EYE ×4 (00:27→20:04)
[2025-01-21] MEDS: HYDROmorphone HCL INJ (*CRX) 1 MG/ML SYR 0.5 MG IV PUSH ×4 (02:51→20:49)
[2025-01-21] MEDS: diphenhydrAMINE HCl CAP 25 MG CAPSULE PO ×4 (02:51→20:49)
[2025-01-21 03:57] LABS: Basophils Absolute Auto 0.1 K/mm3 (0.0-0.1); Basophils Percent Auto 0.4 % (0.2-1.2); Eosinophils Absolute Auto 1.3 K/mm3 (0-0.3); Eosinophils Percent Auto 10.4 % (0-4.4); Hematocrit 35.9 % (37.0-47.0); Hemoglobin 10.6 g/dL (12.0-15.0); Immature Granulocyte Absolute 0.12 K/mm3 (0.00-0.031); Lymphocytes Percent Auto 19.6 % (18.3-44.2); Mean Corpuscular HGB Conc 29.5 g/dl (32-36); Mean Corpuscular Hemoglobin 28.8 pg (26-34); Mean Corpuscular Volume 97.6 fl (80-100); Mean Platelet Volume 9.4 fl (7.4-10.4); Monocytes Absolute Auto 1.1 K/mm3 (0.1-0.6); Monocytes Percent Auto 8.8 % (2.6-8.5); Neutrophils Absolute Auto 7.3 K/mm3 (1.3-6.7); Neutrophils Percent Auto 59.8 % (45.5-73.1); Platelet Count Result 420 k/mm3 (150-375); Red Blood Count 3.68 M/mm3 (4.2-5.4); Red Cell Distribution Width 13.7 % (11.5-14.5); White Blood Count 12.3 K/mm3 (4.5-10.0)
[2025-01-21 04:15] LABS: Albumin Level 3.5 g/dL (3.5-5.1); Anion Gap 10 mmol/L (4-12); Blood Urea Nitrogen 34 mg/dL (7-17); Calcium 8.1 mg/dL (8.4-10.2); Carbon Dioxide 27 mmol/L (22-30); Chloride 100 mmol/L (98-107); Estimated CRCL calculation 18 ml/min; Estimated Glomerular Filt Rate 9; Glucose 189 mg/dL (65-110); Phosphorus 6.5 mg/dL (2.5-4.5); Potassium 4.6 mmol/L (3.4-5.0); Sodium 137 mmol/L (137-145)
[2025-01-21] MEDS: metroNIDAZOLE 500 MG TABLET PO ×3 (05:24→20:48)
[2025-01-21] MEDS: FUROSEMIDE 40 MG TABLET PO (08:04)
[2025-01-21] MEDS: LORATADINE 10 MG TABLET PO (08:04)
[2025-01-21] MEDS: INSULIN GLARGINE (*BKC) 100 UNITS/ML 45 UNITS SUB-Q (08:04)
[2025-01-21] MEDS: APIXABAN 5 MG TABLET PO ×2 (08:04→20:48)
[2025-01-21 08:05] LABS: Glucose Point of Care 127 mg/dl (65-105)
--- NOTE | 2025-01-21 10:53 | PM.PNNEP ---
Progress Note: A&P Assessment and Plan (1) End stage chronic kidney disease: Code(s): N18.6 - End stage renal disease Status: Acute Assessment and Plan: The patient has end-stage renal disease. She has been on dialysis for a little more than a year. She is managed by Dr. Millan at the dialysis unit. Her treatments have been going well at the dialysis unit. Dialysis is underway. Blood pressure is doing well (2) Suicide attempt: Code(s): T14.91XA - Suicide attempt, initial encounter Status: Acute Assessment and Plan: The patient took carvedilol. It is unclear how many she took. blood pressures and pulse measurements have been fine She is still on suicide precaution await for transfer to psychiatric facility. Looking for an inpatient facility where dialysis can be done (3) Type 2 diabetes mellitus with hyperosmolar hyperglycemic state (HHS): Code(s): E11.00 - Type 2 diabetes mellitus with hyperosmolarity without nonketotic hyperglycemic-hyperosmolar coma ([facility]) Status: Acute Assessment and Plan: Management per hospitalist/feller machine operator. 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 Will give a single dose of EPO today (6) Hypertension: Code(s): I10 - Essential (primary) hypertension Status: Chronic Assessment and Plan: systolic ranging from 100 to 130 Subjective Date/time seen: 01/21/25 10:53 Interval history: Patient is awake. She is feeling okay. Eating well. Patient is on dialysis and tolerating well. She was seen at 10:00 a.m.. Blood pressure is doing well Exam Narrative: WDWN female in NAD skin no rash Or subcu nodules head ncat bilaterally lungs clear cor reg no rub or gallop abd BS+ nontender and soft ext no edema Objective Data Vital Signs Vital Signs: Vital Signs - 24 hr 01/20/25 16:00 01/20/25 20:00 01/21/25 00:00 Temperature 98.1 F 98.2 F Pulse Rate 98 96 Respiratory Rate 16 18 Blood Pressure 126/87 122/75 Pulse Oximetry 100 97 Oxygen Delivery Room Air 01/21/25 08:37 01/21/25 08:44 01/21/25 09:00 Temperature 98.2 F Pulse Rate 91 96 92 Respiratory Rate 18 Blood Pressure 116/78 110/79 117/83 Pulse Oximetry 97 Oxygen Delivery 01/21/25 09:15 01/21/25 09:30 01/21/25 09:45 Temperature Pulse Rate 95 102 H 98 Respiratory Rate Blood Pressure 97/68 L 110/64 108/74 Pulse Oximetry Oxygen Delivery 01/21/25 10:00 01/21/25 10:15 01/21/25 10:30 Temperature Pulse Rate 97 104 H 100 Respiratory Rate Blood Pressure 108/75 98/67 L 109/84 Pulse Oximetry Oxygen Delivery 01/21/25 10:45 Temperature Pulse Rate 99 Respiratory Rate Blood Pressure 116/85 Pulse Oximetry Oxygen Delivery Intake/Output Intake/Output: Intake & Output 01/18/25 01/19/25 01/20/25 01/21/25 23:59 23:59 23:59 23:59 Intake Total 960 1280 960 400 Output Total 0 3300 650 600 Balance 0 310 -200 Meds/Results Medications: Active Medications Generic Name Dose Route Start Last Admin Trade Name Freq PRN Reason Stop Dose Admin Acetaminophen 500 mg 01/14/25 04:49 Acetaminophen 500 Mg Tablet PO Q4H PRN Mild Pain (1-3) or Fever Amlodipine Besylate 10 mg 01/14/25 09:00 Amlodipine Besylate 10 Mg Tablet PO DAILY ERICK Apixaban 5 mg 01/14/25 09:00 01/21/25 08:04 Apixaban 5 Mg Tablet PO 5 mg Q12HR ERICK Administration Calamine 1 applic 01/21/25 10:41 Calamine Lotion 120 Ml Bottle TOPICAL QAM PRN Itching Dextrose 12.5 gm 01/13/25 22:27 Dextrose 50% 25 Gm/50 Ml Syringe IV PUSH PRN PRN Hypoglycemia Protocol Diphenhydramine HCl 25 mg 01/17/25 06:21 01/21/25 08:26 Diphenhydramine Hcl Cap 25 Mg Capsule PO 25 mg Q6H PRN Administration Itching Furosemide 40 mg 01/14/25 09:00 01/21/25 08:04 Furosemide 40 Mg Tablet PO 40 mg DAILY ERICK Administration Glucagon 1 mg 01/13/25 22:27 Glucagon For Inj 1 Mg Vial IM PRN PRN Hypoglycemia Protocol Glucose 15 gm 01/13/25 22:27 Glucose Oral Gel 15 Gm Of Glucse In 37.5 Gm Tube PO PRN PRN Hypoglycemia Protocol Hydromorphone HCl 0.5 mg 01/14/25 10:45 01/21/25 08:25 Hydromorphone Hcl Inj (*Crx) 1 Mg/Ml Syr IV PUSH 0.5 mg Q6H PRN Administration Pain Rated 7-10 Dextrose 1,000 mls @ 100 mls/hr 01/13/25 22:27 Dextrose 5% 1,000 Ml IVPB PRN PRN Hypoglycemia Protocol Albumin Human 50 mls @ 999 mls/hr 01/20/25 16:16 Albutein IVPB 01/21/25 16:15 Q10M PRN HYPOTENSION Albumin Human 50 mls @ 999 mls/hr 01/21/25 09:41 Albutein IVPB 01/22/25 09:40 Q10M PRN HYPOTENSION Insulin Aspart 2 - 4 units 01/15/25 21:00 01/20/25 21:09 Insulin Aspart (*Bkc) 100 Units/Ml SUB-Q 2 units HS ERICK Administration Protocol Insulin Aspart 4 - 8 units 01/15/25 12:00 01/21/25 07:58 Insulin Aspart (*Bkc) 100 Units/Ml SUB-Q Not Given TIDWM ERICK Protocol Insulin Glargine 45 units 01/16/25 09:00 01/21/25 08:04 Insulin Glargine (*Bkc) 100 Units/Ml SUB-Q 45 units DAILY ERICK Administration Ketorolac Tromethamine 1 drop 01/14/25 06:00 01/21/25 05:25 Ketorolac 0.5% Op Soln 5 Ml Bottle RIGHT EYE 1 drop Q6HR ERICK Administration Levofloxacin 500 mg 01/20/25 09:00 01/20/25 08:49 Levofloxacin 500 Mg Tablet PO 01/24/25 09:01 500 mg Q48HR ERICK Administration Lisinopril 20 mg 01/14/25 09:00 Lisinopril 20 Mg Tablet PO QAM ERICK Loratadine 10 mg 01/15/25 09:00 01/21/25 08:04 Loratadine 10 Mg Tablet PO 10 mg QAM ERICK Administration Metronidazole 500 mg 01/18/25 14:00 01/21/25 05:24 Metronidazole 500 Mg Tablet PO 01/25/25 06:01 500 mg Q8HR ERICK Administration Ofloxacin 1 drop 01/14/25 06:00 01/21/25 05:25 Ofloxacin 0.3% Ophth Soln 5 Ml Btl RIGHT EYE 1 drop Q6HR ERICK Administration Ondansetron HCl 4 mg 01/14/25 10:45 01/19/25 09:08 Ondansetron Inj 4 Mg/2 Ml Vial IV PUSH 4 mg Q4H PRN Administration Nausea And Vomiting Polyethylene Glycol 17 gm 01/21/25 10:40 Polyethylene Glycol 3350 17 Gm Powd.Pack PO QAM ERICK Prednisolone Acetate 1 drop 01/14/25 06:00 01/21/25 05:25 Prednisolone Acetate 1% Ophth 5 Ml RIGHT EYE 1 drop Q6HR ERICK Administration Senna/Docusate Sodium 1 tab 01/21/25 10:40 Senna/Docusate Sodium Tablet PO Q12HR ERICK Tramadol HCl 50 mg 01/14/25 04:50 01/14/25 08:35 Tramadol Hcl (*Crx) 50 Mg Tablet PO 50 mg Q6H PRN Administration Moderate Pain (Scale Score4-6) Radiology Results: ITS Impressions Shoulder CT 01/14/25 11:24 IMPRESSION: 1. Stable findings of septic arthritis of the acromioclavicular joint and glenohumeral joint and septic subacromial/subdeltoid bursitis. Chest X-Ray 01/16/25 09:12 IMPRESSION: Left lower and upper lobe atelectasis versus pneumonia. Clinical correlation and follow-up advised. Foot CT 01/16/25 17:43 IMPRESSION: Heel ulcer, with induration of the subjacent tissues and likely involvement of the plantar fascia. These changes extend to the calcaneus which is sclerotic and mildly eroded, not significantly changed from the prior radiographs, probably representing chronic osteomyelitis. Recommend MRI of the foot without and with contrast for further evaluation Labs Labs: Laboratory Results - last 24 hr 01/20/25 01/20/25 01/20/25 11:24 16:31 21:06 WBC RBC Hgb Hct MCV MCH MCHC RDW Plt Count MPV Immature Gran % (Auto) Neut % (Auto) Lymph % (Auto) [place] % (Auto) Eos % (Auto) Baso % (Auto) Lymph # (Auto) [place] # (Auto) Eos # (Auto) Baso # (Auto) Abs Immat Gran (auto) Absolute Neuts (auto) Absolute Nucleated RBC Nucleated RBC % Sodium Potassium Chloride Carbon Dioxide Anion Gap BUN Creatinine Estim Creat Clear Calc Estimated GFR Glucose POC Capillary Glucose 255 H 215 H 209 H Calcium Phosphorus Albumin 01/21/25 01/21/25 03:49 07:57 WBC 12.3 H RBC 3.68 L Hgb 10.6 L Hct 35.9 L MCV 97.6 MCH 28.8 MCHC 29.5 L RDW 13.7 Plt Count 420 H MPV 9.4 Immature Gran % (Auto) 1.0 H Neut % (Auto) 59.8 Lymph % (Auto) 19.6 [place] % (Auto) 8.8 H Eos % (Auto) 10.4 H Baso % (Auto) 0.4 Lymph # (Auto) 2.40 [place] # (Auto) 1.1 H Eos # (Auto) 1.3 H Baso # (Auto) 0.1 Abs Immat Gran (auto) 0.12 H Absolute Neuts (auto) 7.3 H Absolute Nucleated RBC 0.000 Nucleated RBC % 0.0 Sodium 137 Potassium 4.6 Chloride 100 Carbon Dioxide 27 Anion Gap 10 BUN 34 H D Creatinine 5.65 H Estim Creat Clear Calc 18 Estimated GFR 9 L Glucose 189 H POC Capillary Glucose 127 H Calcium 8.1 L Phosphorus 6.5 H Albumin 3.5
--- NOTE | 2025-01-21 12:15 | PM.IMPN ---
Progress Note: A&P Assessment and Plan (1) Suicide attempt by drug overdose: Code(s): T50.902A - Poisoning by unspecified drugs, medicaments and biological substances, intentional self-harm, initial encounter Status: Acute Assessment and Plan: Patient presented with suicide attempt and behavior, suggested known amount of possible Coreg -patient is medically stable, will have care coordination and crisis management team evaluate the patient -crisis team met with patient, discussed with me on 01/18/2025 that the feel unsafe for her to sign a contract to go back home. She has attempted suicide x2 before and this time also. So sending her back home will be basically setting her up in the same environment again. -crisis team was going to reach out to different facilities which have Psychiatry as well as dialysis capabilities 01/20: I reached out to [facility] behavioral central intake. spoke to Aminah at [phone], option #1. I went through the whole intake questions which roughly took about 30 minutes, she also asked me to fax the nurse's notes, the progress notes, the medications, the face sheet, the recent labs, the COVID test results, vital signs and the voluntary intake form which the patient has signed. The staff in the ICU faxed all this information to [phone]. 01/21: I called again and today and spoke to Lori, and she stated that the nursing casino operations supervisor declined the patient at [facility]. I asked her if I could talk to a provider or the nursing casino operations supervisor to see what was the reason for declining the pt. She transferred me to the main pt transfer line. Ruth at the transfer line stated she is going to talk to the intake people and get back to me. Ruth did get back to me and stated that she spoke to the strategic development manager of the intake who stated that the patient has not been declined but since they are short on staff they have not reached her file. Once they are get the patient's file, she will be evaluated by the provider and then were let us know. (2) Hyperglycemia without ketosis: Code(s): R73.9 - Hyperglycemia, unspecified Status: Acute Assessment and Plan: Hyperglycemia, nonketotic, hyperosmolar hyperglycemic state -sugars are stable now -continue sliding scale insulin, Accu-Cheks and Lantus (3) End-stage renal disease on hemodialysis: Code(s): N18.6 - End stage renal disease; Z99.2 - Dependence on renal dialysis Status: Acute Assessment and Plan: End-stage renal disease, on dialysis (Mondays, Wednesdays, Fridays) -nephrology has been consulted -dialysis per Nephrology (4) Hypertension: Code(s): I10 - Essential (primary) hypertension Status: Chronic Assessment and Plan: History of hypertension, -continue Lasix -holding lisinopril and amlodipine as blood pressures is stable (5) Chronic 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: Code(s): Z79.01 - 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 Status: Chronic Assessment and Plan: Chronic 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 with apixaban (6) Leukocytosis: Code(s): D72.829 - Elevated white blood cell count, unspecified Status: Acute Assessment and Plan: IV antibiotics were discontinued -continue oral abx for chronic wounds -WBC count trending down and stable -patient has been afebrile, denies any fevers, cough, diarrhea, dysuria -will have crisis management evaluate the patient (7) Chronic heel ulcer: Qualifiers: Laterality: right Non-pressure ulcer stage: unspecified non-pressure ulcer stage Qualified Code(s): L97.419 - Non-pressure chronic ulcer of right heel and midfoot with unspecified severity Code(s): L97.409 - Non-pressure chronic ulcer of unspecified heel and midfoot with unspecified severity Status: Chronic Assessment and Plan: 01/16/25: Right heel ulcer growing Bacteroides not B fragilis, Prevotella species, group G Streptococcus, Pseudomonas aeruginosa -patient has been started on levofloxacin and metronidazole p.o. (01/18) -wound care following the patient Plan DVT prophylaxis: Apixaban Stress ulcer prophylaxis: Not indicated Nutrition: Fatigue diet, safe tray Code Status: Full code 01/20: I reached out to [facility] behavioral central intake. spoke to Aminah at [phone], option #1. I went through the whole intake questions which roughly took about 30 minutes, she also asked me to fax the nurse's notes, the progress notes, the medications, the face sheet, the recent labs, the COVID test results, vital signs and the voluntary intake form which the patient has signed. The staff in the ICU faxed all this information to [phone]. 01/21: I called again and today and spoke to Mickiecatrachito, and she stated that the nursing casino operations supervisor declined the patient at [facility]. I asked her if I could talk to a provider or the nursing casino operations supervisor to see what was the reason for declining the pt. She transferred me to the main pt transfer line. Ruth at the transfer line stated she is going to talk to the intake people and get back to me. Ruth did get back to me and stated that she spoke to the strategic development manager of the intake who stated that the patient has not been declined but since they are short on staff they have not reached her file. Once they are get the patient's file, she will be evaluated by the provider and then were let us know. Due to a high probability of clinically significant, life threatening deterioration, the patient required my highest level of preparedness to intervene emergently and I personally spent this critical care time directly and personally managing the patient. This critical care time included obtaining a history; examining the patient; pulse oximetry; ordering and review of studies; arranging urgent treatment with development of a management plan; evaluation of patient's response to treatment; frequent reassessment; and discussions with other providers. It was exclusive of separately billable procedures and treating other patients and teaching time. Please see Assessment and Plan section and the rest of the note for further information on patient assessment and treatment This dictation may have been done utilizing a voice recognition system. Attempts have been made to correct errors. However, there may be uncorrected grammatical, spelling, and recognitions errors present. Subjective Date/time seen: 01/21/25 12:15 Interval history: Patient seen for hospitalist group Patient is pleasant, no acute distress at this time, no issues. Will have dialysis today. Currently afebrile, hemodynamically stable, continues to put out some urine. Is tolerating p.o. diet Review of Systems Review of Systems: All systems reviewed & are unremarkable except as noted in HPI and below Exam Narrative: General: Pleasant female complains of right shoulder pain HEENT:? Right eye pupil reactive, left eye pupil is degenerate Neck:? Supple Respiratory:? Coarse breath sounds bilaterally, decreased at bases Cardiac:? S1-S2 normal, regular rate and rhythm Abdomen:? Soft, nontender, nondistended, normoactive bowel sounds Extremities:? Left AKA, Neuro:? Patient is awake, alert, oriented, nonfocal Skin:? right heel diabetic ulcer with clear margins, no tunneling or exposure of bone. No erythema. In the right lower extremity chronic venous stasis changes Psych:? Normal mood and affect Objective Data Vital Signs Vital Signs: Vital Signs - 24 hr 01/20/25 16:00 01/20/25 20:00 01/21/25 00:00 Temperature 98.1 F 98.2 F Pulse Rate 98 96 Respiratory Rate 16 18 Blood Pressure 126/87 122/75 Pulse Oximetry 100 97 Oxygen Delivery Room Air 01/21/25 08:37 01/21/25 08:44 01/21/25 09:00 Temperature 98.2 F Pulse Rate 91 96 92 Respiratory Rate 18 Blood Pressure 116/78 110/79 117/83 Pulse Oximetry 97 Oxygen Delivery 01/21/25 09:15 01/21/25 09:30 01/21/25 09:45 Temperature Pulse Rate 95 102 H 98 Respiratory Rate Blood Pressure 97/68 L 110/64 108/74 Pulse Oximetry Oxygen Delivery 01/21/25 10:00 01/21/25 10:15 01/21/25 10:30 Temperature Pulse Rate 97 104 H 100 Respiratory Rate Blood Pressure 108/75 98/67 L 109/84 Pulse Oximetry Oxygen Delivery 01/21/25 10:45 01/21/25 11:00 01/21/25 11:15 Temperature Pulse Rate 99 99 96 Respiratory Rate Blood Pressure 116/85 102/84 102/76 Pulse Oximetry Oxygen Delivery 01/21/25 11:30 01/21/25 11:45 01/21/25 12:00 Temperature Pulse Rate 95 96 101 H Respiratory Rate Blood Pressure 107/77 116/84 106/80 Pulse Oximetry Oxygen Delivery Intake/Output Intake/Output: Intake & Output 01/18/25 01/19/25 01/20/25 01/21/25 23:59 23:59 23:59 23:59 Intake Total 960 1280 960 400 Output Total 0 3300 650 600 Balance 310 -200 Meds/Results Medications: Active Medications Generic Name Dose Route Start Last Admin Trade Name Freq PRN Reason Stop Dose Admin Acetaminophen 500 mg 01/14/25 04:49 Acetaminophen 500 Mg Tablet PO Q4H PRN Mild Pain (1-3) or Fever Amlodipine Besylate 10 mg 01/14/25 09:00 Amlodipine Besylate 10 Mg Tablet PO DAILY ERICK Apixaban 5 mg 01/14/25 09:00 01/21/25 08:04 Apixaban 5 Mg Tablet PO 5 mg Q12HR ERICK Administration Calamine 1 applic 01/21/25 10:41 Calamine Lotion 120 Ml Bottle TOPICAL QAM PRN Itching Dextrose 12.5 gm 01/13/25 22:27 Dextrose 50% 25 Gm/50 Ml Syringe IV PUSH PRN PRN Hypoglycemia Protocol Diphenhydramine HCl 25 mg 01/17/25 06:21 01/21/25 08:26 Diphenhydramine Hcl Cap 25 Mg Capsule PO 25 mg Q6H PRN Administration Itching Furosemide 40 mg 01/14/25 09:00 01/21/25 08:04 Furosemide 40 Mg Tablet PO 40 mg DAILY ERCIK Administration Glucagon 1 mg 01/13/25 22:27 Glucagon For Inj 1 Mg Vial IM PRN PRN Hypoglycemia Protocol Glucose 15 gm 01/13/25 22:27 Glucose Oral Gel 15 Gm Of Glucse In 37.5 Gm Tube PO PRN PRN Hypoglycemia Protocol Hydromorphone HCl 0.5 mg 01/14/25 10:45 01/21/25 08:25 Hydromorphone Hcl Inj (*Crx) 1 Mg/Ml Syr IV PUSH 0.5 mg Q6H PRN Administration Pain Rated 7-10 Dextrose 1,000 mls @ 100 mls/hr 01/13/25 22:27 Dextrose 5% 1,000 Ml IVPB PRN PRN Hypoglycemia Protocol Albumin Human 50 mls @ 999 mls/hr 01/20/25 16:16 Albutein IVPB 01/21/25 16:15 Q10M PRN HYPOTENSION Albumin Human 50 mls @ 999 mls/hr 01/21/25 09:41 Albutein IVPB 01/22/25 09:40 Q10M PRN HYPOTENSION Insulin Aspart 2 - 4 units 01/15/25 21:00 01/20/25 21:09 Insulin Aspart (*Bkc) 100 Units/Ml SUB-Q 2 units HS ERICK Administration Protocol Insulin Aspart 4 - 8 units 01/15/25 12:00 01/21/25 07:58 Insulin Aspart (*Bkc) 100 Units/Ml SUB-Q Not Given TIDWM [facility] Protocol Insulin Glargine 45 units 01/16/25 09:00 01/21/25 08:04 Insulin Glargine (*Bkc) 100 Units/Ml SUB-Q 45 units DAILY ERICK Administration Ketorolac Tromethamine 1 drop 01/14/25 06:00 01/21/25 05:25 Ketorolac 0.5% Op Soln 5 Ml Bottle RIGHT EYE 1 drop Q6HR ERICK Administration Levofloxacin 500 mg 01/20/25 09:00 01/20/25 08:49 Levofloxacin 500 Mg Tablet PO 01/24/25 09:01 500 mg Q48HR ERICK Administration Lisinopril 20 mg 01/14/25 09:00 Lisinopril 20 Mg Tablet PO QAM ERICK Loratadine 10 mg 01/15/25 09:00 01/21/25 08:04 Loratadine 10 Mg Tablet PO 10 mg QAM ERICK Administration Metronidazole 500 mg 01/18/25 14:00 01/21/25 05:24 Metronidazole 500 Mg Tablet PO 01/25/25 06:01 500 mg Q8HR ERICK Administration Ofloxacin 1 drop 01/14/25 06:00 01/21/25 05:25 Ofloxacin 0.3% Ophth Soln 5 Ml Btl RIGHT EYE 1 drop Q6HR [facility] Administration Ondansetron HCl 4 mg 01/14/25 10:45 01/19/25 09:08 Ondansetron Inj 4 Mg/2 Ml Vial IV PUSH 4 mg Q4H PRN Administration Nausea And Vomiting Polyethylene Glycol 17 gm 01/21/25 10:40 Polyethylene Glycol 3350 17 Gm Powd.Pack PO QAM [facility] Prednisolone Acetate 1 drop 01/14/25 06:00 01/21/25 05:25 Prednisolone Acetate 1% Ophth 5 Ml RIGHT EYE 1 drop Q6HR ERICK Administration Senna/Docusate Sodium 1 tab 01/21/25 10:40 Senna/Docusate Sodium Tablet PO Q12HR [facility] Tramadol HCl 50 mg 01/14/25 04:50 01/14/25 08:35 Tramadol Hcl (*Crx) 50 Mg Tablet PO 50 mg Q6H PRN Administration Moderate Pain (Scale Score4-6) Radiology Results: ITS Impressions Shoulder CT 01/14/25 11:24 IMPRESSION: 1. Stable findings of septic arthritis of the acromioclavicular joint and glenohumeral joint and septic subacromial/subdeltoid bursitis. Chest X-Ray 01/16/25 09:12 IMPRESSION: Left lower and upper lobe atelectasis versus pneumonia. Clinical correlation and follow-up advised. Foot CT 01/16/25 17:43 IMPRESSION: Heel ulcer, with induration of the subjacent tissues and likely involvement of the plantar fascia. These changes extend to the calcaneus which is sclerotic and mildly eroded, not significantly changed from the prior radiographs, probably representing chronic osteomyelitis. Recommend MRI of the foot without and with contrast for further evaluation Labs Labs: Laboratory Results - last 24 hr 01/20/25 01/20/25 01/21/25 16:31 21:06 03:49 WBC 12.3 H RBC 3.68 L Hgb 10.6 L Hct 35.9 L MCV 97.6 MCH 28.8 MCHC 29.5 L RDW 13.7 Plt Count 420 H MPV 9.4 Immature Gran % (Auto) 1.0 H Neut % (Auto) 59.8 Lymph % (Auto) 19.6 [place] % (Auto) 8.8 H Eos % (Auto) 10.4 H Baso % (Auto) 0.4 Lymph # (Auto) 2.40 [place] # (Auto) 1.1 H Eos # (Auto) 1.3 H Baso # (Auto) 0.1 Abs Immat Gran (auto) 0.12 H Absolute Neuts (auto) 7.3 H Absolute Nucleated RBC 0.000 Nucleated RBC % 0.0 Sodium 137 Potassium 4.6 Chloride 100 Carbon Dioxide 27 Anion Gap 10 BUN 34 H D Creatinine 5.65 H Estim Creat Clear Calc 18 Estimated GFR 9 L Glucose 189 H POC Capillary Glucose 215 H 209 H Calcium 8.1 L Phosphorus 6.5 H Albumin 3.5 01/21/25 07:57 WBC RBC Hgb Hct MCV MCH MCHC RDW Plt Count MPV Immature Gran % (Auto) Neut % (Auto) Lymph % (Auto) [place] % (Auto) Eos % (Auto) Baso % (Auto) Lymph # (Auto) [place] # (Auto) Eos # (Auto) Baso # (Auto) Abs Immat Gran (auto) Absolute Neuts (auto) Absolute Nucleated RBC Nucleated RBC % Sodium Potassium Chloride Carbon Dioxide Anion Gap BUN Creatinine Estim Creat Clear Calc Estimated GFR Glucose POC Capillary Glucose 127 H Calcium Phosphorus Albumin Quality VTE Prophylaxis VTE prophylaxis: pharmacologic ordered
[2025-01-21] MEDS: HEPARIN SODIUM 1,000 UNITS/ML VIAL 5000 UNITS (12:20)
[2025-01-21] MEDS: polyethylene glycoL 3350 17 GM POWD.PACK PO (13:26)
[2025-01-21] MEDS: SENNA/DOCUSATE SODIUM TABLET 1 TAB PO ×2 (13:26→20:49)
[2025-01-21 13:53] LABS: Glucose Point of Care 78 mg/dl (65-105)
[2025-01-21 17:27] LABS: Glucose Point of Care 287 mg/dl (65-105)
[2025-01-21 20:34] LABS: Glucose Point of Care 290 mg/dl (65-105)
[2025-01-21] MEDS: INSULIN ASPART (*BKC) 100 UNITS/ML SUB-Q (22:40)
[2025-01-22] VITALS: BP 105/66; PULSE 99; RESP 16; TEMP 36.8; O2SAT 99
[2025-01-22] MEDS: prednisoLONE ACETATE 1% OPHTH 5 ML 1 DROP RIGHT EYE ×5 (01:54→23:34)
[2025-01-22] MEDS: KETOROLAC 0.5% OP SOLN 5 ML BOTTLE 1 DROP RIGHT EYE ×5 (01:54→23:30)
[2025-01-22] MEDS: OFLOXACIN 0.3% OPHTH SOLN 5 ML BTL 1 DROP RIGHT EYE ×5 (01:54→23:31)
[2025-01-22] MEDS: diphenhydrAMINE HCl CAP 25 MG CAPSULE PO ×3 (03:13→20:04)
[2025-01-22] MEDS: HYDROmorphone HCL INJ (*CRX) 1 MG/ML SYR 0.5 MG IV PUSH (03:13)
[2025-01-22 04:39] LABS: Basophils Absolute Auto 0.1 K/mm3 (0.0-0.1); Basophils Percent Auto 0.6 % (0.2-1.2); Eosinophils Absolute Auto 1.2 K/mm3 (0-0.3); Eosinophils Percent Auto 9.7 % (0-4.4); Hematocrit 36.8 % (37.0-47.0); Immature Granulocyte Absolute 0.09 K/mm3 (0.00-0.031); Immature Granulocyte Percent A 0.7 % (0-0.5); Lymphocytes Absolute Auto 2.59 K/mm3 (0.9-3.2); Lymphocytes Percent Auto 21.4 % (18.3-44.2); Mean Corpuscular HGB Conc 29.9 g/dl (32-36); Mean Corpuscular Hemoglobin 29.5 pg (26-34); Mean Corpuscular Volume 98.7 fl (80-100); Mean Platelet Volume 9.8 fl (7.4-10.4); Monocytes Percent Auto 8.4 % (2.6-8.5); Neutrophils Absolute Auto 7.2 K/mm3 (1.3-6.7); Neutrophils Percent Auto 59.2 % (45.5-73.1); Platelet Count Result 404 k/mm3 (150-375); Red Blood Count 3.73 M/mm3 (4.2-5.4); Red Cell Distribution Width 13.8 % (11.5-14.5); White Blood Count 12.1 K/mm3 (4.5-10.0)
[2025-01-22 04:50] LABS: Anion Gap 10 mmol/L (4-12); Blood Urea Nitrogen 25 mg/dL (7-17); Carbon Dioxide 29 mmol/L (22-30); Chloride 97 mmol/L (98-107); Estimated CRCL calculation 19 ml/min; Estimated Glomerular Filt Rate 10; Glucose 209 mg/dL (65-110); Magnesium 1.9 mg/dL (1.6-2.3); Phosphorus 6.3 mg/dL (2.5-4.5); Potassium 4.9 mmol/L (3.4-5.0); Sodium 136 mmol/L (137-145)
[2025-01-22 07:56] LABS: Glucose Point of Care 166 mg/dl (65-105)
[2025-01-22 08:00] VITALS: BP 109/80; PULSE 95; RESP 20; TEMP 36.9; O2SAT 97
[2025-01-22] MEDS: APIXABAN 5 MG TABLET PO ×2 (10:12→20:04)
[2025-01-22] MEDS: metroNIDAZOLE 500 MG TABLET PO ×3 (10:12→23:30)
[2025-01-22] MEDS: LORATADINE 10 MG TABLET PO (10:12)
[2025-01-22] MEDS: FUROSEMIDE 40 MG TABLET PO (10:12)
[2025-01-22] MEDS: levoFLOXacin 500 MG TABLET PO (10:12)
[2025-01-22] MEDS: INSULIN GLARGINE (*BKC) 100 UNITS/ML 45 UNITS SUB-Q (10:13)
--- NOTE | 2025-01-22 11:08 | PM.PNNEP ---
Progress Note: A&P Assessment and Plan (1) End stage chronic kidney disease: Code(s): N18.6 - End stage renal disease Status: Acute Assessment and Plan: The patient has end-stage renal disease. She has been on dialysis for a little more than a year. She is managed by Dr. Millan at the dialysis unit. Her treatments have been going well at the dialysis unit. will get her next dialysis on Friday (2) Suicide attempt: Code(s): T14.91XA - Suicide attempt, initial encounter Status: Acute Assessment and Plan: The patient took carvedilol. It is unclear how many she took. blood pressures and pulse measurements have been fine She is still on suicide precaution await for transfer to psychiatric facility. Looking for an inpatient facility where dialysis can be done (3) Type 2 diabetes mellitus with hyperosmolar hyperglycemic state (HHS): Code(s): E11.00 - Type 2 diabetes mellitus with hyperosmolarity without nonketotic hyperglycemic-hyperosmolar coma (NKHHC) Status: Acute Assessment and Plan: Management per hospitalist/wrapping machine operator. 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 Will see what her CBC looks like on Friday (6) Hypertension: Code(s): I10 - Essential (primary) hypertension Status: Chronic Assessment and Plan: systolic ranging from 100 to 130 Subjective Date/time seen: 01/22/25 11:08 Interval history: Patient sitting on the side of the chair. In good spirits Exam Narrative: WDWN female in NAD skin no rash Or subcu nodules head ncat lungs clear bilaterally cor reg no rub or gallop abd BS+ nontender and soft ext no edema Objective Data Vital Signs Vital Signs: Vital Signs - 24 hr 01/21/25 11:15 01/21/25 11:30 01/21/25 11:45 Temperature Pulse Rate 96 95 96 Respiratory Rate Blood Pressure 102/76 107/77 116/84 Pulse Oximetry Oxygen Delivery 01/21/25 12:00 01/21/25 12:15 01/21/25 12:25 Temperature 98.2 F Pulse Rate 101 H 100 102 H Respiratory Rate 18 Blood Pressure 106/80 110/84 115/89 Pulse Oximetry 100 Oxygen Delivery 01/21/25 16:00 01/21/25 20:00 01/22/25 00:00 Temperature 98.0 F 98.3 F Pulse Rate 93 99 Respiratory Rate 117 H 16 Blood Pressure 127/83 105/66 Pulse Oximetry 98 99 Oxygen Delivery Room Air 01/22/25 08:00 Temperature 98.4 F Pulse Rate 95 Respiratory Rate 20 Blood Pressure 109/80 Pulse Oximetry 97 Oxygen Delivery Intake/Output Intake/Output: Intake & Output 01/19/25 01/20/25 01/21/25 01/22/25 23:59 23:59 23:59 23:59 Intake Total 0974 074 4578 240 Output Total 3300 650 3100 0 240 Meds/Results Medications: Active Medications Generic Name Dose Route Start Last Admin Trade Name Freq PRN Reason Stop Dose Admin Acetaminophen 500 mg 01/14/25 04:49 Acetaminophen 500 Mg Tablet PO Q4H PRN Mild Pain (1-3) or Fever Amlodipine Besylate 10 mg 01/14/25 09:00 Amlodipine Besylate 10 Mg Tablet PO DAILY ERICK Apixaban 5 mg 01/14/25 09:00 01/22/25 10:12 Apixaban 5 Mg Tablet PO 5 mg Q12HR ERICK Administration Calamine 1 applic 01/21/25 10:41 Calamine Lotion 120 Ml Bottle TOPICAL QAM PRN Itching Dextrose 12.5 gm 01/13/25 22:27 Dextrose 50% 25 Gm/50 Ml Syringe IV PUSH PRN PRN Hypoglycemia Protocol Diphenhydramine HCl 25 mg 01/17/25 06:21 01/22/25 03:13 Diphenhydramine Hcl Cap 25 Mg Capsule PO 25 mg Q6H PRN Administration Itching Furosemide 40 mg 01/14/25 09:00 01/22/25 10:12 Furosemide 40 Mg Tablet PO 40 mg DAILY ERICK Administration Glucagon 1 mg 01/13/25 22:27 Glucagon For Inj 1 Mg Vial IM PRN PRN Hypoglycemia Protocol Glucose 15 gm 01/13/25 22:27 Glucose Oral Gel 15 Gm Of Glucse In 37.5 Gm Tube PO PRN PRN Hypoglycemia Protocol Hydromorphone HCl 2 mg 01/22/25 10:55 Hydromorphone Hcl (*Crx) 2 Mg Tablet PO Q4H PRN Pain Rated 7-10 Dextrose 1,000 mls @ 100 mls/hr 01/13/25 22:27 Dextrose 5% 1,000 Ml IVPB PRN PRN Hypoglycemia Protocol Insulin Aspart 2 - 4 units 01/15/25 21:00 01/21/25 22:40 Insulin Aspart (*Bkc) 100 Units/Ml SUB-Q 2 units HS ERICK Administration Protocol Insulin Aspart 4 - 8 units 01/15/25 12:00 01/22/25 08:01 Insulin Aspart (*Bkc) 100 Units/Ml SUB-Q Not Given TIDWM ERICK Protocol Insulin Glargine 45 units 01/16/25 09:00 01/22/25 10:13 Insulin Glargine (*Bkc) 100 Units/Ml SUB-Q 45 units DAILY ERICK Administration Ketorolac Tromethamine 1 drop 01/14/25 06:00 01/22/25 06:27 Ketorolac 0.5% Op Soln 5 Ml Bottle RIGHT EYE 1 drop Q6HR ERICK Administration Levofloxacin 500 mg 01/20/25 09:00 01/22/25 10:12 Levofloxacin 500 Mg Tablet PO 01/24/25 09:01 500 mg Q48HR ERICK Administration Lisinopril 20 mg 01/14/25 09:00 Lisinopril 20 Mg Tablet PO QAM ERICK Loratadine 10 mg 01/15/25 09:00 01/22/25 10:12 Loratadine 10 Mg Tablet PO 10 mg QAM ERICK Administration Metronidazole 500 mg 01/18/25 14:00 01/22/25 10:12 Metronidazole 500 Mg Tablet PO 01/25/25 06:01 500 mg Q8HR ERICK Administration Ofloxacin 1 drop 01/14/25 06:00 01/22/25 06:27 Ofloxacin 0.3% Ophth Soln 5 Ml Btl RIGHT EYE 1 drop Q6HR ERICK Administration Ondansetron HCl 4 mg 01/14/25 10:45 01/19/25 09:08 Ondansetron Inj 4 Mg/2 Ml Vial IV PUSH 4 mg Q4H PRN Administration Nausea And Vomiting Polyethylene Glycol 17 gm 01/21/25 10:40 01/22/25 10:14 Polyethylene Glycol 3350 17 Gm Powd.Pack PO Not Given QAM ERICK Prednisolone Acetate 1 drop 01/14/25 06:00 01/22/25 06:27 Prednisolone Acetate 1% Ophth 5 Ml RIGHT EYE 1 drop Q6HR ERICK Administration Senna/Docusate Sodium 1 tab 01/21/25 10:40 01/22/25 10:14 Senna/Docusate Sodium Tablet PO Not Given Q12HR ERICK Tramadol HCl 50 mg 01/14/25 04:50 01/14/25 08:35 Tramadol Hcl (*Crx) 50 Mg Tablet PO 50 mg Q6H PRN Administration Moderate Pain (Scale Score4-6) Radiology Results: ITS Impressions Shoulder CT 01/14/25 11:24 IMPRESSION: 1. Stable findings of septic arthritis of the acromioclavicular joint and glenohumeral joint and septic subacromial/subdeltoid bursitis. Chest X-Ray 01/16/25 09:12 IMPRESSION: Left lower and upper lobe atelectasis versus pneumonia. Clinical correlation and follow-up advised. Foot CT 01/16/25 17:43 IMPRESSION: Heel ulcer, with induration of the subjacent tissues and likely involvement of the plantar fascia. These changes extend to the calcaneus which is sclerotic and mildly eroded, not significantly changed from the prior radiographs, probably representing chronic osteomyelitis. Recommend MRI of the foot without and with contrast for further evaluation Labs Labs: Laboratory Results - last 24 hr 01/21/25 01/21/25 01/21/25 13:29 17:20 20:30 WBC RBC Hgb Hct MCV MCH MCHC RDW Plt Count MPV Immature Gran % (Auto) Neut % (Auto) Lymph % (Auto) [place] % (Auto) Eos % (Auto) Baso % (Auto) Lymph # (Auto) [place] # (Auto) Eos # (Auto) Baso # (Auto) Abs Immat Gran (auto) Absolute Neuts (auto) Absolute Nucleated RBC Nucleated RBC % Sodium Potassium Chloride Carbon Dioxide Anion Gap BUN Creatinine Estim Creat Clear Calc Estimated GFR Glucose POC Capillary Glucose 78 287 H 290 H Calcium Phosphorus Magnesium 01/22/25 01/22/25 04:19 07:44 WBC 12.1 H RBC 3.73 L Hgb 11.0 L Hct 36.8 L MCV 98.7 MCH 29.5 MCHC 29.9 L RDW 13.8 Plt Count 404 H MPV 9.8 Immature Gran % (Auto) 0.7 H Neut % (Auto) 59.2 Lymph % (Auto) 21.4 [place] % (Auto) 8.4 Eos % (Auto) 9.7 H Baso % (Auto) 0.6 Lymph # (Auto) 2.59 [place] # (Auto) 1.0 H Eos # (Auto) 1.2 H Baso # (Auto) 0.1 Abs Immat Gran (auto) 0.09 H Absolute Neuts (auto) 7.2 H Absolute Nucleated RBC 0.000 Nucleated RBC % 0.0 Sodium 136 L Potassium 4.9 Chloride 97 L Carbon Dioxide 29 Anion Gap 10 BUN 25 H Creatinine 5.16 H Estim Creat Clear Calc 19 Estimated GFR 10 L Glucose 209 H POC Capillary Glucose 166 H Calcium 8.0 L Phosphorus 6.3 H Magnesium 1.9
[2025-01-22] MEDS: HYDROmorphone HCL (*CRX) 2 MG TABLET PO ×2 (11:32→20:03)
[2025-01-22 12:18] LABS: Glucose Point of Care 201 mg/dl (65-105)
[2025-01-22] MEDS: INSULIN ASPART (*BKC) 100 UNITS/ML SUB-Q ×2 (12:19→20:05)
--- NOTE | 2025-01-22 14:28 | P.PNIM_ITS ---
Progress Note: A&P Assessment and Plan (1) Suicide attempt by drug overdose: Code(s): T50.902A - Poisoning by unspecified drugs, medicaments and biological substances, intentional self-harm, initial encounter Status: Acute Assessment and Plan: Patient presented with suicide attempt and behavior, suggested known amount of possible Coreg -patient is medically stable, will have care coordination and crisis management team evaluate the patient -crisis team met with patient, discussed with me on 01/18/2025 that the feel unsafe for her to sign a contract to go back home. She has attempted suicide x2 before and this time also. So sending her back home will be basically setting her up in the same environment again. -crisis team was going to reach out to different facilities which have Psychiatry as well as dialysis capabilities 01/20: I reached out to [facility] behavioral central intake. spoke to Aminah at [phone], option #1. I went through the whole intake questions which roughly took about 30 minutes, she also asked me to fax the nurse's notes, the progress notes, the medications, the face sheet, the recent labs, the COVID test results, vital signs and the voluntary intake form which the patient has signed. The staff in the ICU faxed all this information to [phone]. 01/21: I called again and today and spoke to Lori, and she stated that the nursing erection shop supervisor declined the patient at [facility]. I asked her if I could talk to a provider or the nursing erection shop supervisor to see what was the reason for declining the pt. She transferred me to the main pt transfer line. Ruth at the transfer line stated she is going to talk to the intake people and get back to me. Ruth did get back to me and stated that she spoke to the parking enforcement manager of the intake who stated that the patient has not been declined but since they are short on staff they have not reached her file. Once they are get the patient's file, she will be evaluated by the provider and then were let us know. (2) Hyperglycemia without ketosis: Code(s): R73.9 - Hyperglycemia, unspecified Status: Acute Assessment and Plan: Hyperglycemia, nonketotic, hyperosmolar hyperglycemic state -sugars are stable now -continue sliding scale insulin, Accu-Cheks and Lantus (3) End-stage renal disease on hemodialysis: Code(s): N18.6 - End stage renal disease; Z99.2 - Dependence on renal dialysis Status: Acute Assessment and Plan: End-stage renal disease, on dialysis (Mondays, Wednesdays, Fridays) -nephrology has been consulted -dialysis per Nephrology (4) Hypertension: Code(s): I10 - Essential (primary) hypertension Status: Chronic Assessment and Plan: History of hypertension, -continue Lasix -holding lisinopril and amlodipine as blood pressures is stable (5) Chronic 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: 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 Status: Chronic Assessment and Plan: Chronic 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 with apixaban (6) Leukocytosis: Code(s): D72.829 - Elevated white blood cell count, unspecified Status: Acute Assessment and Plan: IV antibiotics were discontinued -continue oral abx for chronic wounds -WBC count trending down and stable -patient has been afebrile, denies any fevers, cough, diarrhea, dysuria -will have crisis management evaluate the patient (7) Chronic heel ulcer: Qualifiers: Laterality: right Non-pressure ulcer stage: unspecified non-pressure ulcer stage Qualified Code(s): L97.419 - Non-pressure chronic ulcer of right heel and midfoot with unspecified severity Code(s): L97.409 - Non-pressure chronic ulcer of unspecified heel and midfoot with unspecified severity Status: Chronic Assessment and Plan: 01/16/25: Right heel ulcer growing Bacteroides not B fragilis, Prevotella species, group G Streptococcus, Pseudomonas aeruginosa -patient has been started on levofloxacin and metronidazole p.o. (01/18) -wound care following the patient Plan DVT prophylaxis: Apixaban Stress ulcer prophylaxis: Not indicated Nutrition: Fatigue diet, safe tray Code Status: Full code 01/20: I reached out to [facility] behavioral central intake. spoke to Aminah at [phone], option #1. I went through the whole intake questions which roughly took about 30 minutes, she also asked me to fax the nurse's notes, the progress notes, the medications, the face sheet, the recent labs, the COVID test results, vital signs and the voluntary intake form which the patient has signed. The staff in the ICU faxed all this information to [phone]. 01/21: I called again and today and spoke to Mickiecatrachito, and she stated that the nursing erection shop supervisor declined the patient at [facility]. I asked her if I could talk to a provider or the nursing erection shop supervisor to see what was the reason for declining the pt. She transferred me to the main pt transfer line. Ruth at the transfer line stated she is going to talk to the intake people and get back to me. Ruth did get back to me and stated that she spoke to the parking enforcement manager of the intake who stated that the patient has not been declined but since they are short on staff they have not reached her file. Once they are able to get to the patient's file, she will be evaluated by the provider and then will let us know. 01/22: Called [facility] a Behavioral central intake at [phone]. I discussed with one of the leads at the [facility] be able central intake, Julita, she stated that they did not have any beds today so that have been worked her case up. The only look at patient's case when the have beds available. She asked me to call again tomorrow on 01/23 Due to a high probability of clinically significant, life threatening deterioration, the patient required my highest level of preparedness to intervene emergently and I personally spent this critical care time directly and personally managing the patient. This critical care time included obtaining a history; examining the patient; pulse oximetry; ordering and review of studies; arranging urgent treatment with development of a management plan; evaluation of patient's response to treatment; frequent reassessment; and discussions with other providers. It was exclusive of separately billable procedures and treating other patients and teaching time. Please see Assessment and Plan section and the rest of the note for further information on patient assessment and treatment This dictation may have been done utilizing a voice recognition system. Attempts have been made to correct errors. However, there may be uncorrected grammatical, spelling, and recognitions errors present. Subjective Date/time seen: 01/22/25 14:28 Interval history: Patient sitting on the side of the chair. Denies any shortness of breath, chest pain, abdominal pain, nausea, vomiting. Complains of itchiness and right upper shoulder pain and pain near her eyes. States she has had Percocet/[place] but that causes more itchiness Review of Systems Review of Systems: All systems reviewed & are unremarkable except as noted in HPI and below Exam Narrative: General: Pleasant female complains of right shoulder pain HEENT:? Right eye pupil reactive, left eye pupil is degenerate Neck:? Supple Respiratory:? PA to auscultation bilaterally, decreased at bases Cardiac:? S1-S2 normal, regular rate and rhythm Abdomen:? Soft, nontender, nondistended, normoactive bowel sounds Extremities:? Left AKA, Neuro:? Patient is awake, alert, oriented, nonfocal Skin:? right heel diabetic ulcer with clear margins, no tunneling or exposure of bone. No erythema. In the right lower extremity chronic venous stasis changes Psych:? Normal mood and affect Objective Data Vital Signs Vital Signs: Vital Signs - 24 hr 01/21/25 16:00 01/21/25 20:00 01/22/25 00:00 Temperature 98.0 F 98.3 F Pulse Rate 93 99 Respiratory Rate 117 H 16 Blood Pressure 127/83 105/66 Pulse Oximetry 98 99 Oxygen Delivery Room Air 01/22/25 08:00 01/22/25 08:00 Temperature 98.4 F Pulse Rate 95 95 Respiratory Rate 20 20 Blood Pressure 109/80 Pulse Oximetry 97 97 Oxygen Delivery Room Air Intake/Output Intake/Output: Intake & Output 01/19/25 01/20/25 01/21/25 01/22/25 23:59 23:59 23:59 23:59 Intake Total 4431 788 5895 480 Output Total 3300 650 3100 0 -2019 310 -1979 480 Meds/Results Medications: Active Medications Generic Name Dose Route Start Last Admin Trade Name Freq PRN Reason Stop Dose Admin Acetaminophen 500 mg 01/14/25 04:49 Acetaminophen 500 Mg Tablet PO Q4H PRN Mild Pain (1-3) or Fever Amlodipine Besylate 10 mg 01/14/25 09:00 Amlodipine Besylate 10 Mg Tablet PO DAILY ERICK Apixaban 5 mg 01/14/25 09:00 01/22/25 10:12 Apixaban 5 Mg Tablet PO 5 mg Q12HR ERICK Administration Calamine 1 applic 01/21/25 10:41 Calamine Lotion 120 Ml Bottle TOPICAL QAM PRN Itching Dextrose 12.5 gm 01/13/25 22:27 Dextrose 50% 25 Gm/50 Ml Syringe IV PUSH PRN PRN Hypoglycemia Protocol Diphenhydramine HCl 25 mg 01/17/25 06:21 01/22/25 11:32 Diphenhydramine Hcl Cap 25 Mg Capsule PO 25 mg Q6H PRN Administration Itching Furosemide 40 mg 01/14/25 09:00 01/22/25 10:12 Furosemide 40 Mg Tablet PO 40 mg DAILY ERICK Administration Glucagon 1 mg 01/13/25 22:27 Glucagon For Inj 1 Mg Vial IM PRN PRN Hypoglycemia Protocol Glucose 15 gm 01/13/25 22:27 Glucose Oral Gel 15 Gm Of Glucse In 37.5 Gm Tube PO PRN PRN Hypoglycemia Protocol Hydromorphone HCl 2 mg 01/22/25 10:55 01/22/25 11:32 Hydromorphone Hcl (*Crx) 2 Mg Tablet PO 2 mg Q4H PRN Administration Pain Rated 7-10 Dextrose 1,000 mls @ 100 mls/hr 01/13/25 22:27 Dextrose 5% 1,000 Ml IVPB PRN PRN Hypoglycemia Protocol Insulin Aspart 2 - 4 units 01/15/25 21:00 01/21/25 22:40 Insulin Aspart (*Bkc) 100 Units/Ml SUB-Q 2 units HS ERICK Administration Protocol Insulin Aspart 4 - 8 units 01/15/25 12:00 01/22/25 12:19 Insulin Aspart (*Bkc) 100 Units/Ml SUB-Q 4 units TIDWM ERICK Administration Protocol Insulin Glargine 45 units 01/16/25 09:00 01/22/25 10:13 Insulin Glargine (*Bkc) 100 Units/Ml SUB-Q 45 units DAILY ERICK Administration Ketorolac Tromethamine 1 drop 01/14/25 06:00 01/22/25 12:18 Ketorolac 0.5% Op Soln 5 Ml Bottle RIGHT EYE 1 drop Q6HR ERICK Administration Levofloxacin 500 mg 01/20/25 09:00 01/22/25 10:12 Levofloxacin 500 Mg Tablet PO 01/24/25 09:01 500 mg Q48HR ERICK Administration Lisinopril 20 mg 01/14/25 09:00 Lisinopril 20 Mg Tablet PO QAM ERICK Loratadine 10 mg 01/15/25 09:00 01/22/25 10:12 Loratadine 10 Mg Tablet PO 10 mg QAM ERICK Administration Metronidazole 500 mg 01/18/25 14:00 01/22/25 10:12 Metronidazole 500 Mg Tablet PO 01/25/25 06:01 500 mg Q8HR ERICK Administration Ofloxacin 1 drop 01/14/25 06:00 01/22/25 12:17 Ofloxacin 0.3% Ophth Soln 5 Ml Btl RIGHT EYE 1 drop Q6HR ERICK Administration Ondansetron HCl 4 mg 01/14/25 10:45 01/19/25 09:08 Ondansetron Inj 4 Mg/2 Ml Vial IV PUSH 4 mg Q4H PRN Administration Nausea And Vomiting Polyethylene Glycol 17 gm 01/21/25 10:40 01/22/25 10:14 Polyethylene Glycol 3350 17 Gm Powd.Pack PO Not Given QAM ERICK Prednisolone Acetate 1 drop 01/14/25 06:00 01/22/25 12:18 Prednisolone Acetate 1% Ophth 5 Ml RIGHT EYE 1 drop Q6HR ERICK Administration Senna/Docusate Sodium 1 tab 01/21/25 10:40 01/22/25 10:14 Senna/Docusate Sodium Tablet PO Not Given Q12HR ERICK Tramadol HCl 50 mg 01/14/25 04:50 01/14/25 08:35 Tramadol Hcl (*Crx) 50 Mg Tablet PO 50 mg Q6H PRN Administration Moderate Pain (Scale Score4-6) Radiology Results: ITS Impressions Shoulder CT 01/14/25 11:24 IMPRESSION: 1. Stable findings of septic arthritis of the acromioclavicular joint and glenohumeral joint and septic subacromial/subdeltoid bursitis. Chest X-Ray 01/16/25 09:12 IMPRESSION: Left lower and upper lobe atelectasis versus pneumonia. Clinical correlation and follow-up advised. Foot CT 01/16/25 17:43 IMPRESSION: Heel ulcer, with induration of the subjacent tissues and likely involvement of the plantar fascia. These changes extend to the calcaneus which is sclerotic and mildly eroded, not significantly changed from the prior radiographs, probably representing chronic osteomyelitis. Recommend MRI of the foot without and with contrast for further evaluation Labs Labs: Laboratory Results - last 24 hr 01/21/25 01/21/25 01/22/25 17:20 20:30 04:19 WBC 12.1 H RBC 3.73 L Hgb 11.0 L Hct 36.8 L MCV 98.7 MCH 29.5 MCHC 29.9 L RDW 13.8 Plt Count 404 H MPV 9.8 Immature Gran % (Auto) 0.7 H Neut % (Auto) 59.2 Lymph % (Auto) 21.4 [place] % (Auto) 8.4 Eos % (Auto) 9.7 H Baso % (Auto) 0.6 Lymph # (Auto) 2.59 [place] # (Auto) 1.0 H Eos # (Auto) 1.2 H Baso # (Auto) 0.1 Abs Immat Gran (auto) 0.09 H Absolute Neuts (auto) 7.2 H Absolute Nucleated RBC 0.000 Nucleated RBC % 0.0 Sodium 136 L Potassium 4.9 Chloride 97 L Carbon Dioxide 29 Anion Gap 10 BUN 25 H Creatinine 5.16 H Estim Creat Clear Calc 19 Estimated GFR 10 L Glucose 209 H POC Capillary Glucose 287 H 290 H Calcium 8.0 L Phosphorus 6.3 H Magnesium 1.9 01/22/25 01/22/25 07:44 12:15 WBC RBC Hgb Hct MCV MCH MCHC RDW Plt Count MPV Immature Gran % (Auto) Neut % (Auto) Lymph % (Auto) [place] % (Auto) Eos % (Auto) Baso % (Auto) Lymph # (Auto) [place] # (Auto) Eos # (Auto) Baso # (Auto) Abs Immat Gran (auto) Absolute Neuts (auto) Absolute Nucleated RBC Nucleated RBC % Sodium Potassium Chloride Carbon Dioxide Anion Gap BUN Creatinine Estim Creat Clear Calc Estimated GFR Glucose POC Capillary Glucose 166 H 201 H Calcium Phosphorus Magnesium Quality VTE Prophylaxis VTE prophylaxis: pharmacologic ordered
[2025-01-22 16:00] VITALS: BP 112/81; PULSE 105; RESP 16; TEMP 36.6; O2SAT 99
[2025-01-22 16:32] LABS: Glucose Point of Care 127 mg/dl (65-105)
[2025-01-22 19:47] LABS: Glucose Point of Care 214 mg/dl (65-105)
[2025-01-22 20:00] VITALS: BP 108/74; PULSE 98; RESP 16; TEMP 36.8; O2SAT 100
[2025-01-22] MEDS: SENNA/DOCUSATE SODIUM TABLET 1 TAB PO (20:04)
[2025-01-22 23:33] VITALS: BP 144/99; PULSE 90; RESP 18; O2SAT 99
[2025-01-23 04:45] LABS: Basophils Absolute Auto 0.1 K/mm3 (0.0-0.1); Basophils Percent Auto 0.5 % (0.2-1.2); Eosinophils Absolute Auto 1.2 K/mm3 (0-0.3); Eosinophils Percent Auto 9.3 % (0-4.4); Hematocrit 35.4 % (37.0-47.0); Hemoglobin 10.7 g/dL (12.0-15.0); Immature Granulocyte Absolute 0.08 K/mm3 (0.00-0.031); Immature Granulocyte Percent A 0.6 % (0-0.5); Lymphocytes Absolute Auto 2.65 K/mm3 (0.9-3.2); Lymphocytes Percent Auto 20.6 % (18.3-44.2); Mean Corpuscular HGB Conc 30.2 g/dl (32-36); Mean Corpuscular Hemoglobin 29.6 pg (26-34); Mean Corpuscular Volume 98.1 fl (80-100); Mean Platelet Volume 9.5 fl (7.4-10.4); Monocytes Absolute Auto 1.1 K/mm3 (0.1-0.6); Monocytes Percent Auto 8.8 % (2.6-8.5); Neutrophils Absolute Auto 7.8 K/mm3 (1.3-6.7); Neutrophils Percent Auto 60.2 % (45.5-73.1); Platelet Count Result 378 k/mm3 (150-375); Red Blood Count 3.61 M/mm3 (4.2-5.4); Red Cell Distribution Width 13.5 % (11.5-14.5); White Blood Count 12.9 K/mm3 (4.5-10.0)
[2025-01-23 05:00] LABS: Alanine Aminotransferase 14 U/L (6-35); Albumin Level 3.5 g/dL (3.5-5.1); Alkaline Phosphatase 195 U/L (38-126); Anion Gap 13 mmol/L (4-12); Aspartate Amino Transferase 19 U/L (14-36); Bilirubin,Total 0.3 mg/dL (0.2-1.3); Blood Urea Nitrogen 35 mg/dL (7-17); Calcium 8.2 mg/dL (8.4-10.2); Carbon Dioxide 25 mmol/L (22-30); Chloride 99 mmol/L (98-107); Estimated CRCL calculation 14 ml/min; Estimated Glomerular Filt Rate 7; Glucose 210 mg/dL (65-110); Magnesium 2.1 mg/dL (1.6-2.3); Phosphorus 6.7 mg/dL (2.5-4.5); Potassium 4.9 mmol/L (3.4-5.0); Sodium 137 mmol/L (137-145)
[2025-01-23] MEDS: KETOROLAC 0.5% OP SOLN 5 ML BOTTLE 1 DROP RIGHT EYE ×3 (05:03→18:30)
[2025-01-23] MEDS: diphenhydrAMINE HCl CAP 25 MG CAPSULE PO ×3 (05:04→18:29)
[2025-01-23] MEDS: metroNIDAZOLE 500 MG TABLET PO ×3 (05:04→21:11)
[2025-01-23] MEDS: HYDROmorphone HCL (*CRX) 2 MG TABLET PO ×3 (05:05→18:29)
[2025-01-23] MEDS: OFLOXACIN 0.3% OPHTH SOLN 5 ML BTL 1 DROP RIGHT EYE ×3 (05:06→18:30)
[2025-01-23] MEDS: prednisoLONE ACETATE 1% OPHTH 5 ML 1 DROP RIGHT EYE ×3 (05:07→18:27)
[2025-01-23 08:57] LABS: Glucose Point of Care 131 mg/dl (65-105)
[2025-01-23] MEDS: LORATADINE 10 MG TABLET PO (09:29)
[2025-01-23] MEDS: SENNA/DOCUSATE SODIUM TABLET 1 TAB PO ×2 (09:29→21:11)
[2025-01-23] MEDS: polyethylene glycoL 3350 17 GM POWD.PACK PO (09:29)
[2025-01-23] MEDS: INSULIN GLARGINE (*BKC) 100 UNITS/ML 45 UNITS SUB-Q (09:29)
[2025-01-23] MEDS: APIXABAN 5 MG TABLET PO ×2 (09:29→21:11)
[2025-01-23] MEDS: FUROSEMIDE 40 MG TABLET PO (09:29)
--- NOTE | 2025-01-23 09:55 | PM.IMPN ---
Progress Note: A&P Assessment and Plan (1) Suicide attempt by drug overdose: Code(s): T50.902A - Poisoning by unspecified drugs, medicaments and biological substances, intentional self-harm, initial encounter Status: Acute Assessment and Plan: Patient presented with suicide attempt and behavior, suggested known amount of possible Coreg -patient is medically stable, will have care coordination and crisis management team evaluate the patient -crisis team met with patient, discussed with me on 01/18/2025 that the feel unsafe for her to sign a contract to go back home. She has attempted suicide x2 before and this time also. So sending her back home will be basically setting her up in the same environment again. -crisis team was going to reach out to different facilities which have Psychiatry as well as dialysis capabilities 01/20: I reached out to [facility] behavioral central intake. spoke to Aminah at [phone], option #1. I went through the whole intake questions which roughly took about 30 minutes, she also asked me to fax the nurse's notes, the progress notes, the medications, the face sheet, the recent labs, the COVID test results, vital signs and the voluntary intake form which the patient has signed. The staff in the ICU faxed all this information to [phone]. 01/21: I called again and today and spoke to Lori, and she stated that the nursing teaching supervisor declined the patient at [facility]. I asked her if I could talk to a provider or the nursing teaching supervisor to see what was the reason for declining the pt. She transferred me to the main pt transfer line. Ruth at the transfer line stated she is going to talk to the intake people and get back to me. Ruth did get back to me and stated that she spoke to the sales and business development manager of the intake who stated that the patient has not been declined but since they are short on staff they have not reached her file. Once they are get the patient's file, she will be evaluated by the provider and then were let us know. 01/23 Continue current treatment and monitor closely (2) Hyperglycemia without ketosis: Code(s): R73.9 - Hyperglycemia, unspecified Status: Acute Assessment and Plan: Hyperglycemia, nonketotic, hyperosmolar hyperglycemic state -sugars are stable now -continue sliding scale insulin, Accu-Cheks and Lantus (3) End-stage renal disease on hemodialysis: Code(s): N18.6 - End stage renal disease; Z99.2 - Dependence on renal dialysis Status: Acute Assessment and Plan: End-stage renal disease, on dialysis (Mondays, Wednesdays, Fridays) -nephrology has been consulted -dialysis per Nephrology (4) Hypertension: Code(s): I10 - Essential (primary) hypertension Status: Chronic Assessment and Plan: History of hypertension, -continue Lasix -holding lisinopril and amlodipine as blood pressures is stable (5) Chronic 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: Code(s): Z79.01 - critical care nurse specialist (current) use of 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 Status: Chronic Assessment and Plan: Chronic 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 with apixaban (6) Leukocytosis: Code(s): D72.829 - Elevated white blood cell count, unspecified Status: Acute Assessment and Plan: IV antibiotics were discontinued -continue oral abx for chronic wounds -WBC count trending down and stable -patient has been afebrile, denies any fevers, cough, diarrhea, dysuria -will have crisis management evaluate the patient (7) Chronic heel ulcer: Qualifiers: Laterality: right Non-pressure ulcer stage: unspecified non-pressure ulcer stage Qualified Code(s): L97.419 - Non-pressure chronic ulcer of right heel and midfoot with unspecified severity Code(s): L97.409 - Non-pressure chronic ulcer of unspecified heel and midfoot with unspecified severity Status: Chronic Assessment and Plan: 01/23 Right heel ulcer growing Bacteroides not B fragilis, Prevotella species, group G Streptococcus, Pseudomonas aeruginosa -patient has been started on levofloxacin and metronidazole p.o. (01/18 -wound care following the patient Plan DVT prophylaxis: Apixaban Stress ulcer prophylaxis: Not indicated Nutrition: Fatigue diet, safe tray Code Status: Full code Subjective Date/time seen: 01/23/25 09:55 Interval history: Patient was seen during the morning rounds today. Denies any shortness of breath, chest pain, abdominal pain, nausea, vomiting. Mood stable Review of Systems Review of Systems: pt much improved All systems reviewed & are unremarkable except as noted in HPI and below Exam Narrative: General: Pleasant female complains of right shoulder pain HEENT:? Right eye pupil reactive, left eye pupil is degenerate Neck:? Supple Respiratory:? PA to auscultation bilaterally, decreased at bases Cardiac:? S1-S2 normal, regular rate and rhythm Abdomen:? Soft, nontender, nondistended, normoactive bowel sounds Extremities:? Left AKA, Neuro:? Patient is awake, alert, oriented, nonfocal Skin:? right heel diabetic ulcer with clear margins, no tunneling or exposure of bone. No erythema. In the right lower extremity chronic venous stasis changes Psych:? Normal mood and affect Const: Other: obese, chronically ill-appearing, appears older stated age HENMT: Other: mucous membranes are tacky, no oral pharyngeal erythema, crowded posterior oropharynx, head is normocephalic atraumatic Eyes: Other: patient has chronic scarring to the left cornea / pupil with opacification of the globe, right eye demonstrates lens replacement and is minimally reactive, patient's eyes are deviated in upward gaze bilaterally, positive conjunctival pallor, no scleral icterus Neck: Other: large neck circumference, asymmetry to the lymph nodes of the neck in the anterior cervical chain right greater than left Chest: Other: Tunneled dialysis catheter in left chest with sutures in place but the line is no longer secured by the broken sutures Resp: Other: decreased breath sounds at the bases, no increased work of breathing Cardio: Other: regular rate, regular rhythm, 2+ bilateral radial pulses, 1+ right pedal pulse GI: Other: obese, nontender, positive bowel sounds Skin: Other: chronic decubitus wound to the right calcaneus, otherwise skin is cool to touch, no other open wounds noted, left above the knee amputation stump site in good condition Neuro: Other: alert oriented x4, speech is clear, no facial asymmetry, deviation of bilateral eyes upward with chronic pupillary changes, decreased sensation to the hands bilaterally and to the right foot consistent with hip patient's history of diabetic peripheral neuropathy Extrem: Other: above the knee amputation, chronic right calcaneus wound without evidence of drainage or surrounding erythema wound is clean and dry Psych: Other: depressed mood, flat affect, cooperative, poor judgment and insight Objective Data Vital Signs Vital Signs: Vital Signs - 24 hr 01/22/25 16:00 01/22/25 20:00 01/22/25 23:33 Temperature 36.6 C 36.8 C Pulse Rate 105 H 98 90 Respiratory Rate 16 16 18 Blood Pressure 112/81 108/74 144/99 H Pulse Oximetry 99 100 99 Intake/Output Intake/Output: Intake & Output 01/20/25 01/21/25 01/22/25 01/23/25 23:59 23:59 23:59 23:59 Intake Total 960 1120 1200 400 Output Total 650 3100 0 450 Balance 310 1200 -50 Meds/Results Medications: Active Medications Generic Name Dose Route Start Last Admin Trade Name Freq PRN Reason Stop Dose Admin Acetaminophen 500 mg 01/14/25 04:49 Acetaminophen 500 Mg Tablet PO Q4H PRN Mild Pain (1-3) or Fever Amlodipine Besylate 10 mg 01/14/25 09:00 Amlodipine Besylate 10 Mg Tablet PO DAILY ERICK Apixaban 5 mg 01/14/25 09:00 01/23/25 09:29 Apixaban 5 Mg Tablet PO 5 mg Q12HR ERICK Administration Calamine 1 applic 01/21/25 10:41 Calamine Lotion 120 Ml Bottle TOPICAL QAM PRN Itching Dextrose 12.5 gm 01/13/25 22:27 Dextrose 50% 25 Gm/50 Ml Syringe IV PUSH PRN PRN Hypoglycemia Protocol Diphenhydramine HCl 25 mg 01/17/25 06:21 01/23/25 05:04 Diphenhydramine Hcl Cap 25 Mg Capsule PO 25 mg Q6H PRN Administration Itching Furosemide 40 mg 01/14/25 09:00 01/23/25 09:29 Furosemide 40 Mg Tablet PO 40 mg DAILY ERICK Administration Glucagon 1 mg 01/13/25 22:27 Glucagon For Inj 1 Mg Vial IM PRN PRN Hypoglycemia Protocol Glucose 15 gm 01/13/25 22:27 Glucose Oral Gel 15 Gm Of Glucse In 37.5 Gm Tube PO PRN PRN Hypoglycemia Protocol Hydromorphone HCl 2 mg 01/22/25 10:55 01/23/25 05:05 Hydromorphone Hcl (*Crx) 2 Mg Tablet PO 2 mg Q4H PRN Administration Pain Rated 7-10 Dextrose 1,000 mls @ 100 mls/hr 01/13/25 22:27 Dextrose 5% 1,000 Ml IVPB PRN PRN Hypoglycemia Protocol Insulin Aspart 2 - 4 units 01/15/25 21:00 01/22/25 20:05 Insulin Aspart (*Bkc) 100 Units/Ml SUB-Q 2 units HS ERICK Administration Protocol Insulin Aspart 4 - 8 units 01/15/25 12:00 01/23/25 09:24 Insulin Aspart (*Bkc) 100 Units/Ml SUB-Q Not Given TIDWM COUNT INCLUDES THE [facility] Protocol Insulin Glargine 45 units 01/16/25 09:00 01/23/25 09:29 Insulin Glargine (*Bkc) 100 Units/Ml SUB-Q 45 units DAILY ERICK Administration Ketorolac Tromethamine 1 drop 01/14/25 06:00 01/23/25 05:03 Ketorolac 0.5% Op Soln 5 Ml Bottle RIGHT EYE 1 drop Q6HR ERICK Administration Levofloxacin 500 mg 01/20/25 09:00 01/22/25 10:12 Levofloxacin 500 Mg Tablet PO 01/24/25 09:01 500 mg Q48HR ERICK Administration Lisinopril 20 mg 01/14/25 09:00 Lisinopril 20 Mg Tablet PO QAM ERICK Loratadine 10 mg 01/15/25 09:00 01/23/25 09:29 Loratadine 10 Mg Tablet PO 10 mg QAM COUNT INCLUDES THE [facility] Administration Metronidazole 500 mg 01/22/25 23:00 01/23/25 05:04 Metronidazole 500 Mg Tablet PO 01/25/25 06:01 500 mg Q8HR COUNT INCLUDES THE [facility] Administration Ofloxacin 1 drop 01/14/25 06:00 01/23/25 05:06 Ofloxacin 0.3% Ophth Soln 5 Ml Btl RIGHT EYE 1 drop Q6HR ERICK Administration Ondansetron HCl 4 mg 01/14/25 10:45 01/19/25 09:08 Ondansetron Inj 4 Mg/2 Ml Vial IV PUSH 4 mg Q4H PRN Administration Nausea And Vomiting Polyethylene Glycol 17 gm 01/21/25 10:40 01/23/25 09:29 Polyethylene Glycol 3350 17 Gm Powd.Pack PO 17 gm QAM COUNT INCLUDES THE [facility] Administration Prednisolone Acetate 1 drop 01/14/25 06:00 01/23/25 05:07 Prednisolone Acetate 1% Ophth 5 Ml RIGHT EYE 1 drop Q6HR ERICK Administration Senna/Docusate Sodium 1 tab 01/21/25 10:40 01/23/25 09:29 Senna/Docusate Sodium Tablet PO 1 tab Q12HR ERICK Administration Tramadol HCl 50 mg 01/14/25 04:50 01/14/25 08:35 Tramadol Hcl (*Crx) 50 Mg Tablet PO 50 mg Q6H PRN Administration Moderate Pain (Scale Score4-6) Radiology Results: ITS Impressions Shoulder CT 01/14/25 11:24 IMPRESSION: 1. Stable findings of septic arthritis of the acromioclavicular joint and glenohumeral joint and septic subacromial/subdeltoid bursitis. Chest X-Ray 01/16/25 09:12 IMPRESSION: Left lower and upper lobe atelectasis versus pneumonia. Clinical correlation and follow-up advised. Foot CT 01/16/25 17:43 IMPRESSION: Heel ulcer, with induration of the subjacent tissues and likely involvement of the plantar fascia. These changes extend to the calcaneus which is sclerotic and mildly eroded, not significantly changed from the prior radiographs, probably representing chronic osteomyelitis. Recommend MRI of the foot without and with contrast for further evaluation Labs Labs: Laboratory Results - last 24 hr 01/22/25 01/22/25 01/22/25 12:15 16:29 19:44 WBC RBC Hgb Hct MCV MCH MCHC RDW Plt Count MPV Immature Gran % (Auto) Neut % (Auto) Lymph % (Auto) [place] % (Auto) Eos % (Auto) Baso % (Auto) Lymph # (Auto) [place] # (Auto) Eos # (Auto) Baso # (Auto) Abs Immat Gran (auto) Absolute Neuts (auto) Absolute Nucleated RBC Nucleated RBC % Sodium Potassium Chloride Carbon Dioxide Anion Gap BUN Creatinine Estim Creat Clear Calc Estimated GFR Glucose POC Capillary Glucose 201 H 127 H 214 H Calcium Phosphorus Magnesium Total Bilirubin AST ALT Alkaline Phosphatase Total Protein Albumin 01/23/25 01/23/25 04:38 08:55 WBC 12.9 H RBC 3.61 L Hgb 10.7 L Hct 35.4 L MCV 98.1 MCH 29.6 MCHC 30.2 L RDW 13.5 Plt Count 378 H MPV 9.5 Immature Gran % (Auto) 0.6 H Neut % (Auto) 60.2 Lymph % (Auto) 20.6 [place] % (Auto) 8.8 H Eos % (Auto) 9.3 H Baso % (Auto) 0.5 Lymph # (Auto) 2.65 [place] # (Auto) 1.1 H Eos # (Auto) 1.2 H Baso # (Auto) 0.1 Abs Immat Gran (auto) 0.08 H Absolute Neuts (auto) 7.8 H Absolute Nucleated RBC 0.000 Nucleated RBC % 0.0 Sodium 137 Potassium 4.9 Chloride 99 Carbon Dioxide 25 Anion Gap 13 H BUN 35 H D Creatinine 7.16 H Estim Creat Clear Calc 14 Estimated GFR 7 L Glucose 210 H POC Capillary Glucose 131 H Calcium 8.2 L Phosphorus 6.7 H Magnesium 2.1 Total Bilirubin 0.3 AST 19 ALT 14 Alkaline Phosphatase 195 H Total Protein 7.0 Albumin 3.5 Quality VTE Prophylaxis VTE prophylaxis: pharmacologic ordered
--- NOTE | 2025-01-23 11:01 | P.PNNP_ITS ---
Progress Note: A&P Assessment and Plan (1) End stage chronic kidney disease: Code(s): N18.6 - End stage renal disease Status: Acute Assessment and Plan: The patient has end-stage renal disease. She has been on dialysis for a little more than a year. She is managed by Dr. Millan at the dialysis unit. Her treatments have been going well at the dialysis unit. will get her next dialysis tomorrow. I wrote the orders (2) Suicide attempt: Code(s): T14.91XA - Suicide attempt, initial encounter Status: Acute Assessment and Plan: The patient took carvedilol. It is unclear how many she took. blood pressures and pulse measurements have been fine She is still on suicide precaution await for transfer to psychiatric facility. Looking for an inpatient facility where dialysis can be done (3) Type 2 diabetes mellitus with hyperosmolar hyperglycemic state (HHS): Code(s): E11.00 - Type 2 diabetes mellitus with hyperosmolarity without nonketotic hyperglycemic-hyperosmolar coma (NKHHC) Status: Acute Assessment and Plan: Management per hospitalist/mail teller. 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 Will see what her CBC looks like on Friday (6) Hypertension: Code(s): I10 - Essential (primary) hypertension Status: Chronic Assessment and Plan: systolic ranging from 100 to 130 Subjective Date/time seen: 01/23/25 11:01 Interval history: Patient feels okay. No shortness of breath. Exam Narrative: WDWN female in NAD skin no rash Or subcu nodules head ncat lungs clear to auscultation cor reg no rub or gallop abd BS+ nontender and soft ext no edema or cyanosis Objective Data Vital Signs Vital Signs: Vital Signs - 24 hr 01/22/25 16:00 01/22/25 20:00 01/22/25 23:33 Temperature 97.9 F 98.2 F Pulse Rate 105 H 98 90 Respiratory Rate 16 16 18 Blood Pressure 112/81 108/74 144/99 H Pulse Oximetry 99 100 99 Intake/Output Intake/Output: Intake & Output 01/20/25 01/21/25 01/22/25 01/23/25 23:59 23:59 23:59 23:59 Intake Total 960 1120 1200 400 Output Total 650 3100 0 450 Balance 310 -1979 1200 -50 Meds/Results Medications: Active Medications Generic Name Dose Route Start Last Admin Trade Name Freq PRN Reason Stop Dose Admin Acetaminophen 500 mg 01/14/25 04:49 Acetaminophen 500 Mg Tablet PO Q4H PRN Mild Pain (1-3) or Fever Amlodipine Besylate 10 mg 01/14/25 09:00 Amlodipine Besylate 10 Mg Tablet PO DAILY ERICK Apixaban 5 mg 01/14/25 09:00 01/23/25 09:29 Apixaban 5 Mg Tablet PO 5 mg Q12HR ERICK Administration Calamine 1 applic 01/21/25 10:41 Calamine Lotion 120 Ml Bottle TOPICAL QAM PRN Itching Dextrose 12.5 gm 01/13/25 22:27 Dextrose 50% 25 Gm/50 Ml Syringe IV PUSH PRN PRN Hypoglycemia Protocol Diphenhydramine HCl 25 mg 01/17/25 06:21 01/23/25 05:04 Diphenhydramine Hcl Cap 25 Mg Capsule PO 25 mg Q6H PRN Administration Itching Furosemide 40 mg 01/14/25 09:00 01/23/25 09:29 Furosemide 40 Mg Tablet PO 40 mg DAILY ERICK Administration Glucagon 1 mg 01/13/25 22:27 Glucagon For Inj 1 Mg Vial IM PRN PRN Hypoglycemia Protocol Glucose 15 gm 01/13/25 22:27 Glucose Oral Gel 15 Gm Of Glucse In 37.5 Gm Tube PO PRN PRN Hypoglycemia Protocol Hydromorphone HCl 2 mg 01/22/25 10:55 01/23/25 05:05 Hydromorphone Hcl (*Crx) 2 Mg Tablet PO 2 mg Q4H PRN Administration Pain Rated 7-10 Dextrose 1,000 mls @ 100 mls/hr 01/13/25 22:27 Dextrose 5% 1,000 Ml IVPB PRN PRN Hypoglycemia Protocol Insulin Aspart 2 - 4 units 01/15/25 21:00 01/22/25 20:05 Insulin Aspart (*Bkc) 100 Units/Ml SUB-Q 2 units HS ERICK Administration Protocol Insulin Aspart 4 - 8 units 01/15/25 12:00 01/23/25 09:24 Insulin Aspart (*Bkc) 100 Units/Ml SUB-Q Not Given TIDWM [facility] Protocol Insulin Glargine 45 units 01/16/25 09:00 01/23/25 09:29 Insulin Glargine (*Bkc) 100 Units/Ml SUB-Q 45 units DAILY ERICK Administration Ketorolac Tromethamine 1 drop 01/14/25 06:00 01/23/25 05:03 Ketorolac 0.5% Op Soln 5 Ml Bottle RIGHT EYE 1 drop Q6HR ERICK Administration Levofloxacin 500 mg 01/20/25 09:00 01/22/25 10:12 Levofloxacin 500 Mg Tablet PO 01/24/25 09:01 500 mg Q48HR ERICK Administration Lisinopril 20 mg 01/14/25 09:00 Lisinopril 20 Mg Tablet PO QAM ERICK Loratadine 10 mg 01/15/25 09:00 01/23/25 09:29 Loratadine 10 Mg Tablet PO 10 mg QAM [facility] Administration Metronidazole 500 mg 01/22/25 23:00 01/23/25 05:04 Metronidazole 500 Mg Tablet PO 01/25/25 06:01 500 mg Q8HR [facility] Administration Ofloxacin 1 drop 01/14/25 06:00 01/23/25 05:06 Ofloxacin 0.3% Ophth Soln 5 Ml Btl RIGHT EYE 1 drop Q6HR ERICK Administration Ondansetron HCl 4 mg 01/14/25 10:45 01/19/25 09:08 Ondansetron Inj 4 Mg/2 Ml Vial IV PUSH 4 mg Q4H PRN Administration Nausea And Vomiting Polyethylene Glycol 17 gm 01/21/25 10:40 01/23/25 09:29 Polyethylene Glycol 3350 17 Gm Powd.Pack PO 17 gm QAM [facility] Administration Prednisolone Acetate 1 drop 01/14/25 06:00 01/23/25 05:07 Prednisolone Acetate 1% Ophth 5 Ml RIGHT EYE 1 drop Q6HR ERICK Administration Senna/Docusate Sodium 1 tab 01/21/25 10:40 01/23/25 09:29 Senna/Docusate Sodium Tablet PO 1 tab Q12HR ERICK Administration Tramadol HCl 50 mg 01/14/25 04:50 01/14/25 08:35 Tramadol Hcl (*Crx) 50 Mg Tablet PO 50 mg Q6H PRN Administration Moderate Pain (Scale Score4-6) Radiology Results: ITS Impressions Shoulder CT 01/14/25 11:24 IMPRESSION: 1. Stable findings of septic arthritis of the acromioclavicular joint and glenohumeral joint and septic subacromial/subdeltoid bursitis. Chest X-Ray 01/16/25 09:12 IMPRESSION: Left lower and upper lobe atelectasis versus pneumonia. Clinical correlation and follow-up advised. Foot CT 01/16/25 17:43 IMPRESSION: Heel ulcer, with induration of the subjacent tissues and likely involvement of the plantar fascia. These changes extend to the calcaneus which is sclerotic and mildly eroded, not significantly changed from the prior radiographs, probably representing chronic osteomyelitis. Recommend MRI of the foot without and with contrast for further evaluation Labs Labs: Laboratory Results - last 24 hr 01/22/25 01/22/25 01/22/25 12:15 16:29 19:44 WBC RBC Hgb Hct MCV MCH MCHC RDW Plt Count MPV Immature Gran % (Auto) Neut % (Auto) Lymph % (Auto) [place] % (Auto) Eos % (Auto) Baso % (Auto) Lymph # (Auto) [place] # (Auto) Eos # (Auto) Baso # (Auto) Abs Immat Gran (auto) Absolute Neuts (auto) Absolute Nucleated RBC Nucleated RBC % Sodium Potassium Chloride Carbon Dioxide Anion Gap BUN Creatinine Estim Creat Clear Calc Estimated GFR Glucose POC Capillary Glucose 201 H 127 H 214 H Calcium Phosphorus Magnesium Total Bilirubin AST ALT Alkaline Phosphatase Total Protein Albumin 01/23/25 01/23/25 04:38 08:55 WBC 12.9 H RBC 3.61 L Hgb 10.7 L Hct 35.4 L MCV 98.1 MCH 29.6 MCHC 30.2 L RDW 13.5 Plt Count 378 H MPV 9.5 Immature Gran % (Auto) 0.6 H Neut % (Auto) 60.2 Lymph % (Auto) 20.6 [place] % (Auto) 8.8 H Eos % (Auto) 9.3 H Baso % (Auto) 0.5 Lymph # (Auto) 2.65 [place] # (Auto) 1.1 H Eos # (Auto) 1.2 H Baso # (Auto) 0.1 Abs Immat Gran (auto) 0.08 H Absolute Neuts (auto) 7.8 H Absolute Nucleated RBC 0.000 Nucleated RBC % 0.0 Sodium 137 Potassium 4.9 Chloride 99 Carbon Dioxide 25 Anion Gap 13 H BUN 35 H D Creatinine 7.16 H Estim Creat Clear Calc 14 Estimated GFR 7 L Glucose 210 H POC Capillary Glucose 131 H Calcium 8.2 L Phosphorus 6.7 H Magnesium 2.1 Total Bilirubin 0.3 AST 19 ALT 14 Alkaline Phosphatase 195 H Total Protein 7.0 Albumin 3.5
[2025-01-23 11:04] VITALS: BP 137/84; PULSE 104; RESP 18; TEMP 37.1; O2SAT 96
[2025-01-23 11:45] LABS: Glucose Point of Care 201 mg/dl (65-105)
[2025-01-23] MEDS: INSULIN ASPART (*BKC) 100 UNITS/ML SUB-Q ×2 (12:34→21:11)
[2025-01-23 16:00] VITALS: BP 122/85; PULSE 106; RESP 16; TEMP 36.6; O2SAT 96
[2025-01-23 16:44] LABS: Glucose Point of Care 194 mg/dl (65-105)
--- NOTE | 2025-01-23 18:15 | PC.NURSE ---
Spoke with Dr Koehler twice today. PT states the dilaudid PO makes her itch as does the hydrocodone/oxycodone. PT is asking to switch the dilaudid to either hydro or oxy to see if that causes less itching. MD wants to continue to monitor the patient, no new orders. Medication administered simultaneously with benadryl.
[2025-01-23 21:08] LABS: Glucose Point of Care 309 mg/dl (65-105)
[2025-01-24] VITALS (20 sets, daily range): BP systolic 96–160; BP diastolic 68–118; PULSE 81–701; RESP 16–20; TEMP 36.1–37.6; O2SAT 99–100
[2025-01-24] MEDS: diphenhydrAMINE HCl CAP 25 MG CAPSULE PO ×2 (00:07→05:44)
[2025-01-24] MEDS: HYDROmorphone HCL (*CRX) 2 MG TABLET PO ×2 (00:07→05:43)
[2025-01-24] MEDS: OFLOXACIN 0.3% OPHTH SOLN 5 ML BTL 1 DROP RIGHT EYE ×2 (00:18→13:29)
[2025-01-24] MEDS: prednisoLONE ACETATE 1% OPHTH 5 ML 1 DROP RIGHT EYE ×3 (00:18→13:30)
[2025-01-24] MEDS: KETOROLAC 0.5% OP SOLN 5 ML BOTTLE 1 DROP RIGHT EYE ×3 (00:18→13:30)
[2025-01-24 04:55] LABS: Basophils Absolute Auto 0.1 K/mm3 (0.0-0.1); Basophils Percent Auto 0.3 % (0.2-1.2); Eosinophils Absolute Auto 1.4 K/mm3 (0-0.3); Eosinophils Percent Auto 9.5 % (0-4.4); Hematocrit 37.3 % (37.0-47.0); Hemoglobin 10.9 g/dL (12.0-15.0); Immature Granulocyte Absolute 0.08 K/mm3 (0.00-0.031); Immature Granulocyte Percent A 0.6 % (0-0.5); Lymphocytes Absolute Auto 3.02 K/mm3 (0.9-3.2); Mean Corpuscular HGB Conc 29.2 g/dl (32-36); Mean Corpuscular Hemoglobin 29.1 pg (26-34); Mean Corpuscular Volume 99.5 fl (80-100); Mean Platelet Volume 9.7 fl (7.4-10.4); Monocytes Absolute Auto 1.1 K/mm3 (0.1-0.6); Monocytes Percent Auto 7.5 % (2.6-8.5); Neutrophils Absolute Auto 8.8 K/mm3 (1.3-6.7); Neutrophils Percent Auto 61.1 % (45.5-73.1); Platelet Count Result 405 k/mm3 (150-375); Red Blood Count 3.75 M/mm3 (4.2-5.4); Red Cell Distribution Width 13.5 % (11.5-14.5); White Blood Count 14.4 K/mm3 (4.5-10.0)
[2025-01-24 05:16] LABS: Albumin Level 3.6 g/dL (3.5-5.1); Anion Gap 14 mmol/L (4-12); Blood Urea Nitrogen 38 mg/dL (7-17); Calcium 8.4 mg/dL (8.4-10.2); Carbon Dioxide 24 mmol/L (22-30); Chloride 102 mmol/L (98-107); Estimated CRCL calculation 13 ml/min; Estimated Glomerular Filt Rate 6; Glucose 154 mg/dL (65-110); Phosphorus 7.1 mg/dL (2.5-4.5); Potassium 5.6 mmol/L (3.4-5.0); Sodium 140 mmol/L (137-145)
[2025-01-24] MEDS: metroNIDAZOLE 500 MG TABLET PO ×2 (05:44→13:43)
[2025-01-24 07:50] LABS: Glucose Point of Care 107 mg/dl (65-105)
[2025-01-24] MEDS: INSULIN GLARGINE (*BKC) 100 UNITS/ML 45 UNITS SUB-Q (08:41)
[2025-01-24 09:53] LABS: Glucose Point of Care 113 mg/dl (65-105)
[2025-01-24] MEDS: ONDANSETRON INJ 4 MG/2 ML VIAL IV PUSH (09:55)
--- NOTE | 2025-01-24 09:55 | P.PNNP_ITS ---
Progress Note: A&P Assessment and Plan (1) End stage chronic kidney disease: Code(s): N18.6 - End stage renal disease Status: Chronic Assessment and Plan: * HD today * continue M/W/F outpatient dialysis schedule while hospitalized * follow electrolytes, volume status, and clearance (2) Suicide attempt: Code(s): T14.91XA - Suicide attempt, initial encounter Status: Acute Assessment and Plan: * as noted by admission history and statements made by patient * apparently took an unknown amount of carvedilol * stable hemodynamics (BP and heart rate) noted since admission * on suicide precautions * will need transfer to psychiatric unit on discharge... (3) Anemia: Code(s): D64.9 - Anemia, unspecified Status: Chronic Assessment and Plan: * due to ESRD * Epogen with HD * follow trend of H/H (4) Hypertension: Code(s): I10 - Essential (primary) hypertension Status: Chronic Assessment and Plan: * reasonable control at this time * follow trend of hemodyamics (5) Chronic heel ulcer: Qualifiers: Laterality: right Non-pressure ulcer stage: unspecified non-pressure ulcer stage Qualified Code(s): L97.419 - Non-pressure chronic ulcer of right heel and midfoot with unspecified severity Code(s): L97.409 - Non-pressure chronic ulcer of unspecified heel and midfoot with unspecified severity Status: Chronic Assessment and Plan: * as noted on admission * wound cultures with Bacteroides not B fragilis, Prevotella species, group G Streptococcus, Pseudomonas aeruginosa * on antibiotics - to complete on 01/25 * wound care following (6) Diabetes mellitus: Code(s): E11.9 - Type 2 diabetes mellitus without complications Status: Chronic Assessment and Plan: * follow accu-cheks * glycemic control per hospitalist Will continue to follow. L Subjective Date/time seen: 01/24/25 09:55 Interval history: Follow-up for end stage renal disease on hemodialysis. Chart reviewed -- assuming care from Dr. Quick; tolerating dialysis treatment at the time of my visit (seen on HD at 9:45AM); no apparent distress noted; no acute issues/events overnight or earlier this morning; no other complalints voiced. Exam 2 Narrative: General: WD/WN female in NAD Heart: normal S1 and S2; no rub Lungs: clear to auscultation Abdomen: soft, nontender, nondistended, positive bowel sounds Extremities: no cyanosis or clubbing; no edema Skin: warm and dry Objective Data Vital Signs Vital Signs: Vital Signs Temp Pulse Resp BP Pulse Ox O2 Del Method 01/24/25 09:45 109 H 144/101 H 01/24/25 09:30 701 H 127/90 01/24/25 09:15 107 H 116/85 01/24/25 08:57 99 131/87 01/24/25 08:45 98.4 F 102 H 16 128/85 99 01/24/25 07:50 98.4 F 102 H 20 130/90 100 01/24/25 00:00 108 H 18 133/92 H 99 01/23/25 20:00 Room Air 01/23/25 16:00 97.9 F 106 H 16 122/85 96 Intake/Output Intake/Output: Intake & Output 01/21/25 01/22/25 01/23/25 01/24/25 23:59 23:59 23:59 23:59 Intake Total 1120 1200 880 540 Output Total 3100 0 1350 Balance -1979 1200 -470 540 Meds/Results Medications: Active Medications Generic Name Dose Route Start Last Admin Trade Name Freq PRN Reason Stop Dose Admin Acetaminophen 500 mg 01/14/25 04:49 Acetaminophen 500 Mg Tablet PO Q4H PRN Mild Pain (1-3) or Fever Amlodipine Besylate 10 mg 01/14/25 09:00 Amlodipine Besylate 10 Mg Tablet PO DAILY [facility] Apixaban 5 mg 01/14/25 09:00 01/23/25 21:11 Apixaban 5 Mg Tablet PO 5 mg Q12HR [facility] Administration Calamine 1 applic 01/21/25 10:41 Calamine Lotion 120 Ml Bottle TOPICAL QAM PRN Itching Dextrose 12.5 gm 01/13/25 22:27 Dextrose 50% 25 Gm/50 Ml Syringe IV PUSH PRN PRN Hypoglycemia Protocol Diphenhydramine HCl 25 mg 01/17/25 06:21 01/24/25 05:44 Diphenhydramine Hcl Cap 25 Mg Capsule PO 25 mg Q6H PRN Administration Itching Furosemide 40 mg 01/14/25 09:00 01/23/25 09:29 Furosemide 40 Mg Tablet PO 40 mg DAILY [facility] Administration Glucagon 1 mg 01/13/25 22:27 Glucagon For Inj 1 Mg Vial IM PRN PRN Hypoglycemia Protocol Glucose 15 gm 01/13/25 22:27 Glucose Oral Gel 15 Gm Of Glucse In 37.5 Gm Tube PO PRN PRN Hypoglycemia Protocol Hydromorphone HCl 2 mg 01/22/25 10:55 01/24/25 05:43 Hydromorphone Hcl (*Crx) 2 Mg Tablet PO 2 mg Q4H PRN Administration Pain Rated 7-10 Dextrose 1,000 mls @ 100 mls/hr 01/13/25 22:27 Dextrose 5% 1,000 Ml IVPB PRN PRN Hypoglycemia Protocol Albumin Human 50 mls @ 999 mls/hr 01/23/25 11:03 Albutein IVPB 02/22/25 11:02 Q10M PRN HYPOTENSION Insulin Aspart 2 - 4 units 01/15/25 21:00 01/23/25 21:11 Insulin Aspart (*Bkc) 100 Units/Ml SUB-Q 3 units HS ERICK Administration Protocol Insulin Aspart 4 - 8 units 01/15/25 12:00 01/24/25 07:50 Insulin Aspart (*Bkc) 100 Units/Ml SUB-Q Not Given TIDWM ERICK Protocol Insulin Glargine 45 units 01/16/25 09:00 01/24/25 08:41 Insulin Glargine (*Bkc) 100 Units/Ml SUB-Q 45 units DAILY ERICK Administration Ketorolac Tromethamine 1 drop 01/14/25 06:00 01/24/25 05:46 Ketorolac 0.5% Op Soln 5 Ml Bottle RIGHT EYE 1 drop Q6HR ERICK Administration Lisinopril 20 mg 01/14/25 09:00 Lisinopril 20 Mg Tablet PO QAM ERICK Loratadine 10 mg 01/15/25 09:00 01/23/25 09:29 Loratadine 10 Mg Tablet PO 10 mg QAM ERICK Administration Metronidazole 500 mg 01/22/25 23:00 01/24/25 05:44 Metronidazole 500 Mg Tablet PO 01/25/25 06:01 500 mg Q8HR ERICK Administration Ofloxacin 1 drop 01/24/25 12:00 Ofloxacin 0.3% Ophth Soln 5 Ml Btl RIGHT EYE Q6HR [facility] Ondansetron HCl 4 mg 01/14/25 10:45 01/24/25 09:55 Ondansetron Inj 4 Mg/2 Ml Vial IV PUSH 4 mg Q4H PRN Administration Nausea And Vomiting Polyethylene Glycol 17 gm 01/21/25 10:40 01/23/25 09:29 Polyethylene Glycol 3350 17 Gm Powd.Pack PO 17 gm QAM ERICK Administration Prednisolone Acetate 1 drop 01/14/25 06:00 01/24/25 05:46 Prednisolone Acetate 1% Ophth 5 Ml RIGHT EYE 1 drop Q6HR ERICK Administration Senna/Docusate Sodium 1 tab 01/21/25 10:40 01/23/25 21:11 Senna/Docusate Sodium Tablet PO 1 tab Q12HR ERICK Administration Radiology Results: ITS Impressions Shoulder CT 01/14/25 11:24 IMPRESSION: 1. Stable findings of septic arthritis of the acromioclavicular joint and glenohumeral joint and septic subacromial/subdeltoid bursitis. Chest X-Ray 01/16/25 09:12 IMPRESSION: Left lower and upper lobe atelectasis versus pneumonia. Clinical correlation and follow-up advised. Foot CT 01/16/25 17:43 IMPRESSION: Heel ulcer, with induration of the subjacent tissues and likely involvement of the plantar fascia. These changes extend to the calcaneus which is sclerotic and mildly eroded, not significantly changed from the prior radiographs, probably representing chronic osteomyelitis. Recommend MRI of the foot without and with contrast for further evaluation Labs Labs: Laboratory Tests 01/24/25 04:45 01/24/25 04:45 Calcium 8.4 Phosphorus 7.1 H Albumin 3.6
[2025-01-24] MEDS: FUROSEMIDE 40 MG TABLET PO (13:29)
[2025-01-24] MEDS: levoFLOXacin 500 MG TABLET PO (13:29)
[2025-01-24] MEDS: polyethylene glycoL 3350 17 GM POWD.PACK PO (13:29)
[2025-01-24] MEDS: LORATADINE 10 MG TABLET PO (13:29)
[2025-01-24] MEDS: SENNA/DOCUSATE SODIUM TABLET 1 TAB PO (13:29)
[2025-01-24] MEDS: APIXABAN 5 MG TABLET PO (13:29)
[2025-01-24 13:41] LABS: Glucose Point of Care 108 mg/dl (65-105)
--- NOTE | 2025-01-24 15:29 | P.DS_ITS ---
DS: Admitting Diagnosis Discharge Date 01/24/2025 Admitting Diagnosis Drug overdose DS: Discharge Diagnosis Discharge Diagnosis (1) Suicide attempt by drug overdose: Code(s): T50.902A - Poisoning by unspecified drugs, medicaments and biological substances, intentional self-harm, initial encounter Status: Acute Assessment and Plan: Please refer to hospital course for brief course. Patient presented with suicide attempt and behavior, suggested known amount of possible Coreg -patient is medically stable, will have care coordination and crisis management team evaluate the patient -crisis team met with patient, discussed with me on 01/18/2025 that the feel unsafe for her to sign a contract to go back home. She has attempted suicide x2 before and this time also. So sending her back home will be basically setting her up in the same environment again. -crisis team was going to reach out to different facilities which have Psychiatry as well as dialysis capabilities 01/20: I reached out to [facility] behavioral central intake. spoke to Aminah, at [phone], option #1. I went through the whole intake questions which roughly took about 30 minutes, she also asked me to fax the nurse's notes, the progress notes, the medications, the face sheet, the recent labs, the COVID test results, vital signs and the voluntary intake form which the patient has signed. The staff in the ICU faxed all this information to [phone]. 01/21: I called again and today and spoke to Lori, and she stated that the nursing decorating and assembly supervisor declined the patient at [facility]. I asked her if I could talk to a provider or the nursing decorating and assembly supervisor to see what was the reason for declining the pt. She transferred me to the main pt transfer line. Ruth at the transfer line stated she is going to talk to the intake people and get back to me. Ruth did get back to me and stated that she spoke to the automotive general manager of the intake who stated that the patient has not been declined but since they are short on staff they have not reached her file. Once they are get the patient's file, she will be evaluated by the provider and then were let us know. 01/23 Continue current treatment and monitor closely (2) Hyperglycemia without ketosis: Code(s): R73.9 - Hyperglycemia, unspecified Status: Acute Assessment and Plan: Hyperglycemia, nonketotic, hyperosmolar hyperglycemic state -sugars are stable now -continue sliding scale insulin, Accu-Cheks and Lantus (3) End-stage renal disease on hemodialysis: Code(s): N18.6 - End stage renal disease; Z99.2 - Dependence on renal dialysis Status: Acute Assessment and Plan: End-stage renal disease, on dialysis (Mondays, Wednesdays, Fridays) -nephrology has been consulted -dialysis per Nephrology (4) Hypertension: Code(s): I10 - Essential (primary) hypertension Status: Chronic Assessment and Plan: History of hypertension, -continue Lasix -holding lisinopril and amlodipine as blood pressures is stable (5) Chronic 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: Code(s): Z79.01 - nursing home (current) use of 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 Status: Chronic Assessment and Plan: Chronic 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 with apixaban (6) Leukocytosis: Code(s): D72.829 - Elevated white blood cell count, unspecified Status: Acute Assessment and Plan: IV antibiotics were discontinued -continue oral abx for chronic wounds -WBC count trending down and stable -patient has been afebrile, denies any fevers, cough, diarrhea, dysuria -will have crisis management evaluate the patient (7) Chronic heel ulcer: Qualifiers: Laterality: right Non-pressure ulcer stage: unspecified non-pressure ulcer stage Qualified Code(s): L97.419 - Non-pressure chronic ulcer of right heel and midfoot with unspecified severity Code(s): L97.409 - Non-pressure chronic ulcer of unspecified heel and midfoot with unspecified severity Status: Chronic Assessment and Plan: 01/23 Right heel ulcer growing Bacteroides not B fragilis, Prevotella species, group G Streptococcus, Pseudomonas aeruginosa -patient has been started on levofloxacin and metronidazole p.o. (01/18 -wound care following the patient DS: Summary Hospital Course Hospital Course: 34-year-old female with a past medical history including end-stage renal disease on hemodialysis through a left-sided PermCath Friday. His a history of zja-uqvhpyb-iklzvirrf diabetes, hypertension, hyperlipidemia, nephrotic syndrome. Patient presents to the emergency department today with suicidal attempt. Cross referencing her home medications and the medications at bedside Lasix and lisinopril are missing from the bottles but the other medications appear full and recently filled. Patient does not know what medication she took and she took the medications in attempt to harm herself and end her life. Patient verbalizes stating that she does not want to be here anymore and is tired of life. Has a history of suicide attempts in the past. Patient verbalizes not wanting psychiatric help. She reports that she is depressed and has no appetite. She reports her depression has been ongoing for months and is been worsening. She reports that she is depressed due to her chronic medical conditions. She underwent racing cataract surgery hoping it would improve her vision only to still have little to no vision in her right eye and now needs to have a follow-up with her doctor for possible laser surgery of her retina. She also reports that she was having increasing right shoulder pain. She has been admitted multiple times since February 2024 with septic arthritis /septic bursitis in osteomyelitis of the right shoulder which has been managed at [facility]. Her most recent hospitalization was in November. She was discharged on a 30 day supply of doxycycline which was completed the 2nd week in December. She reports that the the 1st week or so after stopping antibiotic therapy shoulder pain had improved. But now she has had recurrent swelling of the right shoulder. And now is having pain lifting her shoulder even with passive range of motion she reports the pain is an 8/10 in intensity. Pain is more so with lateral and deltoid movement of the shoulder and not some much when she is reaching forward. She has not had any associated fevers or chills. I assumed on 01/16 and 01/25: In regards to suicidal ideation: Patient is medically cleared. Currently patient denies any suicidal ideation or homicidal ideation. Crisis team has been evaluated and set up appointment with a psychiatrist and mental health clinic. Patient also has hyperglycemia. Patient has been discharged with Lantus 30 units and correctional insulin. Advised to follow-up with the PCP and adjust the insulin dosage as needed. Patient is currently on dialysis MWF with . Status at Discharge Cognitive/behavioral status at discharge: Stable Time Spent with Patient Time attestation: Total time spent providing and/or coordinating discharge services: 45 minute Exam Narrative: General: Pleasant female complains of right shoulder pain HEENT:? Right eye pupil reactive, left eye pupil is degenerate Neck:? Supple Respiratory:? PA to auscultation bilaterally, decreased at bases Cardiac:? S1-S2 normal, regular rate and rhythm Abdomen:? Soft, nontender, nondistended, normoactive bowel sounds Extremities:? Left AKA, Neuro:? Patient is awake, alert, oriented, nonfocal Skin:? right heel diabetic ulcer with clear margins, no tunneling or exposure of bone. No erythema. In the right lower extremity chronic venous stasis changes Psych:? Normal mood and affect Const: Other: obese, chronically ill-appearing, appears older stated age HENMT: Other: mucous membranes are tacky, no oral pharyngeal erythema, crowded posterior oropharynx, head is normocephalic atraumatic Eyes: Other: patient has chronic scarring to the left cornea / pupil with opacification of the globe, right eye demonstrates lens replacement and is minimally reactive, patient's eyes are deviated in upward gaze bilaterally, positive conjunctival pallor, no scleral icterus Neck: Other: large neck circumference, asymmetry to the lymph nodes of the neck in the anterior cervical chain right greater than left Chest: Other: Tunneled dialysis catheter in left chest with sutures in place but the line is no longer secured by the broken sutures Resp: Other: decreased breath sounds at the bases, no increased work of breathing Cardio: Other: regular rate, regular rhythm, 2+ bilateral radial pulses, 1+ right pedal pulse GI: Other: obese, nontender, positive bowel sounds Skin: Other: chronic decubitus wound to the right calcaneus, otherwise skin is cool to touch, no other open wounds noted, left above the knee amputation stump site in good condition Neuro: Other: alert oriented x4, speech is clear, no facial asymmetry, deviation of bilateral eyes upward with chronic pupillary changes, decreased sensation to the hands bilaterally and to the right foot consistent with hip patient's history of diabetic peripheral neuropathy Extrem: Other: above the knee amputation, chronic right calcaneus wound without evidence of drainage or surrounding erythema wound is clean and dry Psych: Other: depressed mood, flat affect, cooperative, poor judgment and insight DS: Data Data Completed and Pending Labs on day of discharge: Labs from last 24 hours 01/24/25 01/24/25 01/24/25 13:32 09:50 07:47 WBC RBC Hgb Hct MCV MCH MCHC RDW Plt Count MPV Immature Gran % (Auto) Neut % (Auto) Lymph % (Auto) [place] % (Auto) Eos % (Auto) Baso % (Auto) Lymph # (Auto) [place] # (Auto) Eos # (Auto) Baso # (Auto) Abs Immat Gran (auto) Absolute Neuts (auto) Absolute Nucleated RBC Nucleated RBC % Sodium Potassium Chloride Carbon Dioxide Anion Gap BUN Creatinine Estim Creat Clear Calc Estimated GFR Glucose POC Capillary Glucose 108 H 113 H 107 H Calcium Phosphorus Albumin 01/24/25 01/23/25 01/23/25 04:45 21:05 16:41 WBC 14.4 H RBC 3.75 L Hgb 10.9 L Hct 37.3 MCV 99.5 MCH 29.1 MCHC 29.2 L RDW 13.5 Plt Count 405 H MPV 9.7 Immature Gran % (Auto) 0.6 H Neut % (Auto) 61.1 Lymph % (Auto) 21.0 [place] % (Auto) 7.5 Eos % (Auto) 9.5 H Baso % (Auto) 0.3 Lymph # (Auto) 3.02 [place] # (Auto) 1.1 H Eos # (Auto) 1.4 H Baso # (Auto) 0.1 Abs Immat Gran (auto) 0.08 H Absolute Neuts (auto) 8.8 H Absolute Nucleated RBC 0.000 Nucleated RBC % 0.0 Sodium 140 Potassium 5.6 H Chloride 102 Carbon Dioxide 24 Anion Gap 14 H BUN 38 H Creatinine 7.72 H Estim Creat Clear Calc 13 Estimated GFR 6 L Glucose 154 H POC Capillary Glucose 309 H 194 H Calcium 8.4 Phosphorus 7.1 H Albumin 3.6 Discharge Plan Discharge Attending physician on discharge: Adam Palacios Consulting providers: Luis M Bay; Jean-Claude Quick Discharging Clinician: Adam Palacios Anticipated Discharge Date/Time: 01/24/25 15:03 Patient Disposition: Home, Self-Care Activity: as tolerated Diet: diabetic and renal Discharge Instructions: Per Care Coordination, patient has an appointment with [facility] Health Counselor 01/27/25 at 2PM. She will call pt. to finalize arrangements. Pt. has an appointment with Jenna Shannon psychiatrist, on 01/26/25 at 2 PM, office will call to arrange specifics of the appointment. Advised patient to get help or call 911 if any suicidal ideation. Follow up with Nephrology for dialysis. Please follow-up with PCP for insulin adjustment. Patient needs to complete metronidazole tomorrow. Patient needs to follow-up with the PCP within 1 week upon discharge. Patient needs to follow-up with endocrinology within 1 week upon discharge. Patient needs to follow up with psychiatrist within 1 week upon discharge. In case of hypoglycemia or hyperglycemia seek immediate medical care. Patient Instructions: Antibiotic Form Patient Language: Tajik Stand Alone Forms: General Discharge Information Follow-up/Referrals: Darnell,TOÑITO Luong [Primary Care Provider] - Jean-Claude Quick MD [Physician] - Discharge Medications: New metronidazole 500 mg Tablet 500 mg PO Q8HR Qty: 5 0RF Rx Instructions: Please finish the course on 01/25/25 (DME) blood-glucose meter [OneTouch Verio Flex meter] Misc Qty: 1 0RF Rx Instructions: May substitute to in-stock meter and/or covered by insurance. Use As Directed (DME) OneTouch Verio test strips Strip Qty: 1 0RF Rx Instructions: May substitute to in-stock and/or covered by insurance strips. Use As Directed (DME) pen needle, diabetic 32 gauge x 5/32 Needle Qty: 1,200 0RF Rx Instructions: As Directed (DME) lancets [OneTouch Delica Plus Lancet] 30 gauge misc Qty: 1 0RF Rx Instructions: May substitute to in-stock and/or covered by insurance lancets. Use As Directed insulin glargine [Lantus Solostar U-100 Insulin] 100 unit/mL (3 mL) insulin pen 30 unit subcut QAM Qty: 15 0RF insulin aspart U-100 100 unit/mL (3 mL) insulin pen 1 sliding scale dose subcut USEASDIRECTD Qty: 15 0RF Rx Instructions: Rx Instructions: <70-Follow Hypoglycemic protocol 70-200: No addition Insulin 201-250: 3 U 251-300: 4 U 301-350: 5 U 351-400: 6 U >400: Call MD Continued carvedilol 12.5 mg tablet 25 mg PO Q12H amlodipine 10 mg tablet 10 mg PO DAILY lisinopril 20 mg Tablet 20 mg PO QAM 30 Days Qty: 30 0RF furosemide 40 mg Tablet 40 mg PO DAILY acetaminophen 500 mg Tablet 500 mg PO Q6H PRN (Reason: Pain, Mild) diphenhydramine HCl 25 mg Capsule 25 mg PO Q8H PRN (Reason: Itching) prednisolone acetate 1 % drops,suspension 1 drp RIGHT EYE Q6H Rx Instructions: 1 Drop in right eye 4 x per day. ofloxacin 0.3 % drops 1 drp RIGHT EYE Q6H Rx Instructions: 1 drop right eye 4 x per day ketorolac 0.5 % drops 1 drp RIGHT EYE Q6H Rx Instructions: 1 drop to right eye 4 per day bisacodyl 10 mg Suppository 10 mg RECTAL DAILY PRN (Reason: Constipation) Rx Instructions: For use of no BM with milk of magnesia. tramadol 50 mg tablet 50 mg PO Q6H PRN (Reason: Moderate Pain (Scale Score 5-6)) Patient Comments: ran out off pills at home Eliquis 5 mg tablet 5 mg PO BID Slynd 4 mg (28) tablet 4 mg PO DAILY Held Trulicity 1.5 mg/0.5 mL pen injector 1.5 mg SUBCUT WEEKLY Hold Instructions: Resume on 03/02/25. Please discuss with your PCP and continue if needed Discontinued gabapentin 100 mg Capsule 300 mg PO QMWF glucagon 1 mg Kit 1 mg IM PRN PRN (Reason: Hypoglycemia) Rx Instructions: Inject 1 mL IM as needed for hypoglycemia. May repeat x1 if blood sugar is still below 80 in 30 minutes Date of admission: 01/13/25 22:56 Primary Care Provider: JohnCherise Admitting Provider: Nadia Coreas Attending physician on admission: Nadia Coreas Condition: Guarded Prognosis
--- NOTE | 2025-01-31 11:22 | PCCDE ---
01/31/25 Courtesy follow up message left including direct call back number. FJ
== END 2025-01-24 18:03 | disposition home or self-care (01) | DRG 817 ==
LOC: ANHED 21:15 → ANHICU 23:34
PROVIDERS: Family Medicine; Internal Medicine; Internal Medicine Nephrology; Admitting Provider Internal Medicine; Emergency Provider Student in an Organized Health Care Education/Training Program; PCP Physician Assistant; Visit Provider General Practice
DX: T44.7X2A Poisoning by beta-adrenoreceptor antagonists, intentional self-harm, initial encounter (principal); N18.6 End stage renal disease; Z99.2 Dependence on renal dialysis; Z91.51 Personal history of suicidal behavior; B96.89 Other specified bacterial agents as the cause of diseases classified elsewhere; B95.4 Other streptococcus as the cause of diseases classified elsewhere; B96.5 Pseudomonas (aeruginosa) (mallei) (pseudomallei) as the cause of diseases classified elsewhere; D72.829 Elevated white blood cell count, unspecified; D63.1 Anemia in chronic kidney disease; E11.621 Type 2 diabetes mellitus with foot ulcer; E11.22 Type 2 diabetes mellitus with diabetic chronic kidney disease; E78.5 Hyperlipidemia, unspecified; E11.65 Type 2 diabetes mellitus with hyperglycemia; F32.A Depression, unspecified; G47.33 Obstructive sleep apnea (adult) (pediatric); H40.9 Unspecified glaucoma; H54.7 Unspecified visual loss; I13.2 Hypertensive heart and chronic kidney disease with heart failure and with stage 5 chronic kidney disease, or end stage renal disease; I50.32 Chronic diastolic (congestive) heart failure; L97.419 Non-pressure chronic ulcer of right heel and midfoot with unspecified severity; Z98.41 Cataract extraction status, right eye; Z96.1 Presence of intraocular lens; Z89.512 Acquired absence of left leg below knee; Z79.01 Long term (current) use of 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; Z20.822 Contact with and (suspected) exposure to COVID-19; Z28.21 Immunization not carried out because of patient refusal; Z79.85 Long-term (current) use of injectable non-insulin antidiabetic drugs
CPT/HCPCS: 36415; 71045; 73200; 73700; 80048; 80053; 80069; 80143; 80179; 80307; 81001; 82010; 82077; 82803; 82948; 83036; 83605; 83735; 84100; 84145; 84443; 84703; 85025; 85027; 85652; 86140; 87040; 87070; 87075; 87186; 87205; 87635; 87637; 87641; 93005; 96361; 96365; 96375; 99285; A9270; G0257; J0696; J1171; J1610; J1644; J1815; J2405; J3480; J7030; J7040; Q5105

== ENCOUNTER 2025-03-19 23:05 | Emergency (ER) | payer MEDICARE, SELFPAY ==
--- NOTE | ~2025-03-19 | XR_ITS ---
Clinical Indication: Port out AP and lateral views of the chest: Comparison: 01/16/2025 Findings: Left sided central venous line is in satisfactory position, unchanged from prior exam. The lungs are clear, without evidence of focal consolidation or pleural effusion. Cardiomediastinal silh ouette is within normal limits. Bones and soft tissues are unremarkable. Impression: Clear lungs. Stable support line. Reviewed, dictated and finalized at location . Impression: Clear lungs. Stable support line.
--- OUTSIDE RECORDS SUMMARY | 2025-03-19 23:07 | XMS_ITS | Encounter Summary ---
Author Organization [facility] Address [address] [facility] [address] Care Team Providers Care Scientist Name Role Phone Cherise Patrick PA-C Primary Care Provider Reason for Visit * Reason Onset Date Comments Hospital Admission 04/24/2023 Encounter Details Date Type Department Care Team (Late st Contact Info) Description 04/24/2023 Telephone [facility] [address] [place] [address] Sameer Navarro MD [facility] [address] Hospital Admission Social History Tobacco [...] and heating? Not hard at all 04/28/2023 [facility] of Occupat ional Health - Occupational Stress [...] slept in a prison (including now)? 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 No / Unsure 04/26/2023 5:17 AM CDT documented as of this encounter Functional Status * Is person deaf or have serious hearing difficulty? Answer Date of Assessment Author No 12/03/2022 3:05 AM Erik Sharpe RN * Is person blind or have serious difficulty seeing? Answer Date of Assessment Author No 12/03/2022 3:05 AM Erik Sharpe RN * Does person have serious difficulty walking/climbing stairs? Answer Date of Assessment Author Yes 12/03/2022 3:05 AM Erik Sharpe RN * Does person have difficulty dressing/bathing? Answer Date of Assessment Author Yes 12/03/2022 3:05 AM Erik Sharpe RN * Does person have difficulty doing errands alone? Answer Date of Assessment Author Yes 12/03/2022 3:05 AM Erik Sharpe RN documented as of this encounter Mental Status * Does person have difficulty concentrating/remembering/making decisions? Answer Entry Date Author No 12/03/2022 3:05 AM Erik Sharpe RN documented in this encounter Miscellaneous Notes * Telephone Encounter - Sameer Navarro MD - 04/24/2023 12:21 PM CDT [facility] Outside Hospital Transfer Call Documentation Date:04/24/2023 Time:12:21 PM Patient: Gay Canales : 1990 Referring Facility Name: [facility] Reason for Transfer: Right foot debridement vs BKA Brief Description (including applicable labs, imaging, consultations): 32 year oldÂ femaleÂ with past medical history of DM 2, HTN, HFpEF, Â morbid obesity, MDD , status post left AKA in November, at [facility] when she presented with necrotizing fasciitis [...] GIbleeding now. Patient needs on arrival to [facility]: Medicine admissions resident (ask boring machine operator for Medicine Admission) to be notified of arrival. Consultation to (N/A if blank): Vascular/general surgery I have accepted this patient for transfer to [facility]. If patient awaiting bed for [...] documented as of this encounter Care Teams Scientist Relationship Specialty Start Date End Date Cherise Patrick PA-C [address] [place] [id number] PCP - General 02/23/24 documented as of this encounter
--- OUTSIDE RECORDS SUMMARY | 2025-03-19 23:08 | XMS_ITS | Encounter Summary ---
Author Organization [facility] Address [address] [facility] [place] [address] Care Team Providers Care L D Rn Name Role Phone Cherise Patrick PA-C Primary Care Provider Reason for Visit * Radiology Services (Routine) - Closed Specialty Diagnoses / Procedures Referred By Contac t Referred To Contact Interventional Radiology Diagnoses ESRD (end stage renal disease) (HCC) Procedures IR Central Line Insert Tunnel Artie Harmon MD [address] [facility] [address] [address] Phone: tel: fax: Referral ID Status Reason Start Date Expiration Date Visits Re quested Visits Authorized [id number] Closed 03/17/2025 03/17/2026 1 1 Encounter Details Date Type Department Care Team (Latest Contact Info) Description 03/18/2025 12:05 PM CDT - 03/18/2025 4:25 PM CDT Hospital Encounter [facility] [address] [place] [address] Artie Harmon MD [address] [facility] [address] [place] [address] Interven Radiology Discharge Disposition: Home or Self Care Social [...] you have a drink containing alcohol? Never 03/18/2025 Q2: How many drinks containi ng alcohol do you have on a typical day when you are drinking? Patient does not drink Q3: How often do you have si x or more drinks on one occasion? Never 03/18/2025 Overall Financial Resource Strain (CARDIA) Answe r Date Recorded How hard is it for you to pa y for the very basics like food, housing, medical care, and heating? Not hard at all 07/26/2024 PHQ-2 Answer Date Recorded PHQ2 TOTAL SCORE 0 06/10/2023 [facility] of Occupat ional Health - Occupational Stress [...] slept in a fci (including now)? 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 Gender Identity Not on file Sexual Orientation Not on file documented as of this encounter Last Filed Vital Signs Vital Sign Reading Time Taken Comments Blood Pressure 171/98 03/18/2025 4:15 PM CDT Pulse 85 03/18/2025 4:15 PM CDT Temperature 37.2 C (98.9 F) 03/18/2025 3:50 PM CDT Respiratory Rate 15 03/18/2025 4:15 PM CDT Oxygen Saturation 98% 03/18/2025 4:15 PM CDT Inhaled Oxygen Concentration - - Weight 109.8 kg (242 lb) 03/18/2025 12:29 PM CDT Height 162.6 cm (5' 4 ) 03/18/2025 12:29 PM CDT left AKA Body Mass Index 41.54 03/18/2025 12:29 PM CDT documented in this encounter Functional Status * Question Answer Date of Assessment Author Q1: How often do you have a drink containing alcohol? Never 03/18/2025 12:35 PM BRODERICKT Anabel Mccabe RN Q2: How many drinks containing alcohol do you have on a typical day when you are drinking? Patient does not drink 03/18/2025 12:35 PM BRODERICKT Anabel Mccabe RN Q3: How often do you have six or more drinks on one occasion? Never 03/18/2025 12:35 PM CDT Anabel Mccabe RN * Audit-C Score Answer Date of Assessment Author 0 03/18/2025 12:35 PM BRODERICKT Anabel Mccabe RN * Is person deaf or have serious hearing difficulty? Answer Date of Assessment Author No 03/18/2025 4:01 PM CDT Imelda King RN * Is person blind or have serious difficulty seeing? Answer Date of Assessment Author No 03/18/2025 4:01 PM CDT Imelda King RN * Does person have serious difficulty walking/climbing stairs? Answer Date of Assessment Author No 03/18/2025 4:01 PM CDT Imelda King RN * Does person have difficulty dressing/bathing? Answer Date of Assessment Author No 03/18/2025 4:01 PM CDT Imelda Kign RN * Does person have difficulty doing errands alone? Answer Date of Assessment Author No 03/18/2025 4:01 PM CDT Imelda King RN documented as of this encounter Mental Status * Does person have difficulty concentrating/remembering/making decisions? Answer Entry Date Author No 03/18/2025 4:01 PM CDT Imelda King RN documented in this encounter Discharge Instructions * Discharge Instructions* Rio Monk MD - 03/18/2025 3:42 PM CDT RADIOLOGY OUTPATIENT PHYSICIAN DISCHARGE ORDER Dressing Care: leave dressing in place. Keep Dry OK to use Instructions: If you have one or more of the following, please call your physician: A. Redness or swelling of the operative site. B. Persistent bleeding through bandage. C. Severe pain which is not relieved by oral pain medication. D. Temperature above 101 degrees or severe chilling. E. Foul odor of drainage. If you are unable to reach your physician with an urgent or severe problem: 1. Call the nephrology resident at [phone] . 2. Call the emergency room at [phone]. Post Moderate Sedation instructions: During the procedure, you received sedation medications that might linger in your system up to 24 hours after administration. Therefore, for the next 24 hours, donot drive a car or use heavy equipment. An adult should drive you home and stay with you after you have had moderate sedation. Follow your caregiver's advice about making changes to your diet, activity, or medicine. Avoid hardexercise right after having moderate sedation. Do not drink alcoholic beverages, such as beer and wine etc. Do not make important decisions for 24 hours (one day) after having moderate sedation like big financial decisions, selling property etc. Medications: IF prescribed pain medications, do not take on an empty stomach. Do not drive, drink alcohol or operate machinery while taking medication.; we have not made any changes to your previously prescribed medications. 03/18/2025 3:41 PM Physician: Rio Monk documented in this encounter Medications at Time of Discharge acetaminophen (Tylenol) 325 MG tablet Take 2 [...] daily for 30 days 60 tablet 09/01/2024 1:19 PM CDT 09/01/2024 blood glucose (AllofMeTouch Verio) test stripIndications :Hyperglycemia USE ONE STRIP TO TEST BLOOD SUGAR FOUR TIMES DAILY 100 strip 12/12/2022 Blood Glucose Monitoring Suppl (OneTouch Verio Reflect) w/Device KITIndications:C ALL [facility] WHEN DELIVERING X4364 Use 1 kit 4 times daily USE METER TO CHECK BLOOD GLUCOSE FOUR TIMES DAILY Reasons: CALL [facility] WHEN DELIVERING X4364 1 kit 12/12/2022 carvedilol (Coreg) 25 MG tablet Take 1 (one) tablet by mouth 2 times daily with morning and evening meal for 30 days 60 tablet 09/01/2024 1:19 PM CDT 09/01/2024 furosemide (Lasix) 40 MG tablet Take 1 (one) tablet by mouth every Friday, , & Friday for 30 days 12 tablet 09/01/2024 1:19 PM CDT 09/02/2024 gabapentin (Neurontin) 300 MG capsule Take 1 (one) capsule by mouth every Friday, Friday & Friday 30 capsule 08/09/2024 Gauze Pads & Dressings (Gauze Dressing) 4 X4 PADS Use 1 Pad every 2 days Apply to right shoulder, change dressing every 48 hours, sooner if needed. 24 Each 1 08/09/2024 Lancets (ONETOUCH DELICA PLUS 33G EXTRA FINE LANCET)Indicatio ns:Hyperglycemia USE ONE LANCET TO PRICK FINGER FOUR TIMES DAILY FOR BLOOD GLUCOSE TESTING 100 Each 12/12/2022 lisinopril (Prinivil; Zestril) 20 MG tabletIndication s:Hypertension, unspecified type Take 1 (one) tablet by mouth once daily 30 tablet 08/24/2024 oxyCODONE, immediate release, (Roxicodone) 10 MG tabletIndication s:Acute Pain Take 1 (one) tablet by mouth every 4 hours as needed Reasons: Acute Pain 16 tablet 08/31/2024 renal vitamin (Dialyvite) tablet Take 1 (one) tablet by mouth once daily 02/28/2024 sevelamer carbonate (Renvela) 800 MG Take 1 (one) tablet by mouth 3 times daily with meals 02/28/2024 documented as of this encounter Progress Notes * Jimmy Pelayo RN - 03/18/2025 3:37 PM CDT Interventional Radiology Nursing - End Procedure Note Sedation: Versed: 1 mg, Fentanyl: 50 mcg Sedation start time: 1514 hours Procedure start time: 1515 hours Procedure end time: 1534 hours Additional drugs: 4500 units Heparin Fluoroscopy time: 1.3 min * Heath Aguilar RN - 03/18/2025 1:40 PM CDT Preop RN called to report fasting blood sugar of 382.Dr Monk informed and would like to wait until after procedure & re-address at that time. documented in this encounter H&P Notes * Rio Monk MD - 03/18/2025 2:05 PM CDT IP Sedation Pre Date/Time: 03/18/2025 2:05 PM Performed by: RIO MONK Authorized by: RIO MONK Unit: IR Consent: Verbal consent obtained. Written consent obtained. History & Exam Attestation: I have reviewed the pre-procedure nursing assessment: Yes Brief history and exam related to procedure complete: Yes H&P was reviewed, the patient was examined, and that no changes have occurred in the patient s condition since the H&P was complete: [...] alternatives with patient, family members or patient provider relations representative: Yes Attestation: I have reviewed the immediate pre-procedure vital signs: Yes Patient reports or my clinical evaluation indicates there have been no changes in the patient's condition prior to the start of the procedure: Yes Intra-Procedure Patient is currently here for permcath exchange Exam: Neck: No increased JVD Chest: Clear to A and P Heart RRR Extremities: No edema 03/18/2025 2:05 PM Rio Monk MD documented in this encounter Procedure Notes * Rio Monk MD - 03/18/2025 3:40 PM CDT IP Sedation Post Date/Time: 03/18/2025 3:40 PM Performed by: Rio Monk MD Authorized by: Rio Monk MD Unit: IR Post-Procedure Attestation: I have reviewed [...] is Normalthermic Patient's pain level is: None 03/18/2025 3:40 PM Rio Monk MD * Rio Monk MD - 03/18/2025 1:00 PM CDT Brief Procedure Note - Interventional Nephrology Gay Canales 03/18/2025 Procedure: Exchange of tunneled dialysis catheter over wire and disruption of fibrin sheath Senior Interaction Designer: Rio Monk MD Complications: None OK to use 03/18/2025 3:42 PM Full procedure note and images in Synapse and EPIC (Results/Interventional) Rio Monk MD documented in this encounter Plan of Treatment Pending Results Name Type Priority Associated Diagnoses Date /Time IR Central Line Insert Tunnel Imaging Routine ESRD (end stage renal disease) (HCC) 03/18/2025 3:20 PM CDT documented as of this encounter Procedures Procedure Name Priority Date/Time Associated Diagnosis Comments HCG BETA BLOOD QUANTITATIVE STAT 03/18/2025 1:38 PM CDT Pre-op evaluation documented in this encounter Results * HCG BETA BLOOD QUANTITATIVE (03/18/2025 1:38 PM CDT) Beta-hCG Total Quantitative <3 mIU/mL 03/18/2025 2:[address] [facility] Comment: HCG Numeric Result Interpretation: Non- Females: < 5 mIU/mL Post-Menopausal Females: < 7 mIU/mL This assay is cleared for use in the early detection of only. It is not approved for any other uses such as tumor marker screening, tumor marker monitoring, etc. and should not be used for any other purposes. Blood BLOOD SPECIMEN / Unknown Venipuncture / Unknown 03/18/2025 1:38 PM CDT 03/18/2025 1:52 PM CDT Artie Harmon MD LAB - CHEMISTRY ORDERABLES Final Result [facility] [address] [place] [id number], [facility] [phone] documented in this encounter Visit Diagnoses Diagnosis Pre-op evaluation- Primary Preoperative examination, unspecified ESRD (end stage renal disease) (HCC) End stage renal disease documented in this encounter Administered Medications Inactive Administered Medications - up to 3 most recent administrations Medication Order MAR Action Action Date Dose Rate Site 0.9% NaCl infusion Intravenous, CONTINUOUS PRN, Starting on Fri03/18/25 at 1505, Until Fri03/18/25 at 1505, Intra-op $ New Bag/Syringe 03/18/2025 3:05 PM CDT 250 mL fentaNYL (PF) (Sublimaze) injection ONCE PRN, Starting on Fri03/18/25 at 1514, Until Fri03/18/25 at 1514, Intra-op $ Given 03/18/2025 3:14 PM CDT 50 mcg heparin injection ONCE PRN, Starting on Fri03/18/25 at 1530, Until Fri03/18/25 at 1530, Intra-op $ Given 03/18/2025 3:30 PM CDT 4,500 Units heparinized saline 2 units/mL infusion Other, CONTINUOUS PRN, Starting on Fri03/18/25 at 1508, Until Fri03/18/25 at 1508, Intra-op $ New Bag/Syringe 03/18/2025 3:08 PM CDT 500 mL lidocaine 1% (Xylocaine) - EPINEPHrine 1:100,000 injection ONCE PRN, Starting on Fri03/18/25 at 1515, Until Fri03/18/25 at 1515, Intra-op $ Given 03/18/2025 3:15 PM CDT 10 mL midazolam (Versed) injection Intravenous, ONCE PRN, Starting on Fri03/18/25 at 1514, Until Fri03/18/25 at 1514, Intra-op $ Given 03/18/2025 3:14 PM CDT 1 mg documented in this encounter Active and Recently Administered Medications Times are shown in CDT. PRN Medication Order 03/16/2025 03/17/2025 03/18/2025 0.9% NaCl infusion (COMPLETED) Intravenous, CONTINUOUS PRN, Starting on Fri03/18/25 at 1505, Until Fri03/18/25 at 1505, Intra-op 1505 ($ New Bag/Syri nge - Provider: Jimmy Pelayo RN) fentaNYL (PF) (Sublimaze) injection (COMPLETED) ONCE PRN, Starting on Fri03/18/25 at 1514, Until Fri03/18/25 at 1514, Intra-op 1514 ($ Given - Prov ider: Jimmy Pelayo RN) heparin injection (COMPLETED) ONCE PRN, Starting on Fri03/18/25 at 1530, Until Fri03/18/25 at 1530, Intra-op 1530 ($ Given - Prov ider: Rio Monk MD) heparinized saline 2 units/mL infusion (COMPLETED) Other, CONTINUOUS PRN, Starting on Fri03/18/25 at 1508, Until Fri03/18/25 at 1508, Intra-op 1508 ($ New Bag/Syri nge - Provider: Rio Monk MD - Comment: For Table) lidocaine 1% (Xylocaine) - EPINEPHrine 1:100,000 injection (COMPLETED) ONCE PRN, Starting on Fri03/18/25 at 1515, Until Fri03/18/25 at 1515, Intra-op 1515 ($ Given - Prov ider: Rio Monk MD) midazolam (Versed) injection (COMPLETED) Intravenous, ONCE PRN, Starting on Fri03/18/25 at 1514, Until Fri03/18/25 at 1514, Intra-op 1514 ($ Given - Prov ider: Jimmy Pelayo RN) documented in this encounter Additional Health Concerns Infection Onset Date Last Indicated Resolved Time MRSA Hx 05/24/2024 05/24/2024 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
--- OUTSIDE RECORDS SUMMARY | 2025-03-19 23:08 | XMS_ITS | Data Portability ---
Author Organization [place] - [facility] Heart [facility] OFFICE Address [address] [place] [address] Assessment Encounter Date Assessment Date Assessment LastModified [...] Imaging electrocard iogram 2022 023 [facility] [place], [address], 3 16:58:23 Medication Orders potassium chloride ER 20 mEq tablet,exte nded release 2022 023 [facility] [address] [place], [address], 3 17:02:16 Lasix 20 mg tablet 2022 023 [facility] [address] [place], [address], 3 17:02:18 losartan 25 mg tablet 2022 023 [facility] [address] [place], [address], 3 17:02:17 Patient TargetsNo targets recorded. Patient Instructions Encounter Date Encounter Id Patient Instructions Last Modified By Organization Details Last Modified Time 03/18/2023 [id number] type 2 diabetes: care instructions eyassin Not [...] Time Uncontro lled type 2 diabetes mellitus 363329399 Active 2022 [place], [place] - [facility] 15:53:39 Hyperten sive disorder 81334299 Active 2022 [place] Av[place] null, [place] - [facility] 3 15:53:37 Edema 169922423 Active 2022 Mike Moses null, [place] - [facility] 3 11:51:16 [facility] stay within past 30 days [id number] 06 Completed 202203/05/2023 Mike [place] - [facility] 3 11:55:46 Amputate d left lower limb below knee 907971920 Active 2022 [place] - [facility] 3 15:56:28 Dyspnea on exertion 85361032 Active 2022 [place] [facility] 3 13:46:03 Edema of lower extremit y 173700817 Active 2022 [place] Av[place], [place] - [...] Address Organization Details Last Updated DateTime 3 269740. 34 g 50.6 kg/m2 170.18 cm 71 /min 87 % 87 % 150 mm[Hg] 100 mm[Hg] [facility] 3 16:35:36 Social History Question Answer Notes LastModified by Organizat ion Details LastModified Time Tobacco Smoking Status Never Smoker Mike Moses [facility] 03/05/2023 13:06:35 Are You Blind Or Do You Have Difficulty Seeing? Yes Information not available 03/18/2023 What Is Your Level Of Caffeine Consumption? Moderate Information not available 03/05/2023 In The 14 Days Before Symptom Onset, Have You Had Close Contact With A Laboratory-confir med COVID-19 While That Case Was Ill? No Information not available 03/05/2023 In The 14 [...] Of Diet Are You Following? REGULAR Information not available 03/18/2023 Have You Processed Blood Or [...] Or The Highest Degree You Have Received? [id number] Information not available 03/05/2023 Are There Any [...] Yes Information not available 03/18/2023 Do You Use Sunscreen Routinely? No Information not available 03/18/2023 Do You Have Difficulty Walking Or Climbing Stairs? Yes Amuptee (Left Leg) Information not available 03/18/2023 Sex: Unknown Functional Status Question Answer Note LastModified by [facility] [place] ion Details LastModified Time Do you use any illicit or recreational drugs? No Information not available 03/05/2023 Do you or have you ever used any other forms of tobacco or nicotine? No Information not available 03/05/2023 What is your level of alcohol consumption? Occasional Information not available 03/05/2023 Do you have difficulty doing errands alone? Yes Information not available 03/18/2023 Do you have difficulty dressing or bathing? Yes Information not available 03/18/2023 What is your exercise level? None Information not available 03/18/2023 Mental Status Question Answer Note LastModified by [employer] ion Details LastModified Time Do you feel stressed (tense, restless, nervous, or anxious, or unable to sleep at night)? [id number] Information not available 03/18/2023 Do you have difficulty concentrating, remembering or [...] SNOMED-CT Code Diagnosis ICD10 Code Diagnosis Note 39254 Casper Delgado MD [place] OFFICE [address] [place] [id number] 03/18/2023 14:45:35 03/18/2023 17:04:19 Essential hypertension 56394992 I10 elevated todayshe is taking amlodipin 10 mg and coreg 12.5 mg dailystart ing losartan 25 mg daily Type 2 jassi betes mellitus without complication 358657893 E11.9 controlled by PCP Dyspnea on exertion 6084 5006 R06.09 will do echo to see the structure of her heart Lexiscan Myoview stress test, pt can not walk. Has known coronary artery disease, with atypical symptoms now Edema of l ower extremity 013981682 R60.0 will start her on lasix 20 mg BID daily Health Concerns Section Related Observation LastModified by Organization Detai ls LastModified Time None Recorded Concern Status LastModified by Organization Details LastModified Time None Recorded Advance Directives Directive None Recorded Payers Insurance Date Sequence Insurance Name Policy Number Policy Bobo Covered Member ID Bobo Member ID Guarantor Name 03/18/2023 2 [place] Gay Mata [id number] Gay Mata 04/19/2023 1 [facility] (MEDICAID REPLACEMENT - HMO) [id number] Gay Mata [id number] Gay Mata Notes Date Note Type Note Provider Name and Address Organization Details Recorded Time 03/18/2023 text/html 03/18/23CC: Abnormal EKGGay MATA is a 32 years-old Female with [...]
--- OUTSIDE RECORDS SUMMARY | 2025-03-19 23:09 | XMS_ITS | Referral Summary ---
Author Organization [facility] Address [address] [place] [address] Care Team Providers Care Hog Handler Name Role Phone Cherise Patrick Primary Care Provider Encounters Date Type Department Care Team Description 02/24/2025 11:10 AM CDT Office Visit [facility] Ophthalmology [address] [place] [phone] Luis Rodriguez MD Traction detachment of both retinas (Primary Dx); Neovascular glaucoma of right eye, severe stage 02/21/2025 11:00 AM CDT Office Visit [facility] Ophthalmology [address] [place] [address] [place] [phone] Sumi Gupta MD Neovascular glaucoma of right eye, severe stage (Primary Dx) 02/18/2025 3:45 PM CDT Office Visit [facility] Ophthalmology [address] [place] [phone] Bita Vega MD Pseudophakia, right eye (Primary Dx); Neovascular glaucoma of right eye, indeterminate stage; Traction detachment of both retinas 01/25/2025 9:15 AM CDT Office Visit [facility] Ophthalmology [address], [address] [place] [address] Bita Vega MD Pseudophakia, right eye (Primary Dx); Traction detachment of both retinas 01/12/2025 Telephone [facility] Ophthalmology [facility] [address] [phone] Nancie Hoyos MD 01/11/2025 9:15 AM CDT Office Visit [facility] Ophthalmology [address] [facility] [address] [facility], [address] [place] [address] Bita Vega MD Pseudophakia, right eye (Primary Dx) 01/10/2025 10:30 AM CDT - 01/10/2025 11:15 AM CDT Surgery [facility] [address] [place] [address] Bita Vega MD COMPLEX EXTRACTION CATARACT - PHACOEMULSIFICATION AND LENS IMPLANT 01/10/2025 11:39 AM CDT Anesthesia Event [facility]) [address] [place] [address] Carla Neri MD Mallette, Allison Anne, NP 01/10/2025 8:34 AM CDT - 01/10/2025 12:39 PM CDT Hospital Encounter [facility]) [address] [place] [address] Bita Vega MD 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 Ophthalmology [facility] [address] [phone] Bita Vega MD 12/29/2024 Telephone [facility] Ophthalmology [address] [place] [phone] Bita Vega MD Med Refill; Rx change from Last 3 Months Allergies No known active allergies Medications furosemide (LASIX) 40 mg tabletIndicat ions:hyperten arjun Take 1 tablet (40 mg total) by mouth director of early childhood education before breakfast Active carvediloL (COREG) 12.5 mg tabletIndicat ions:hyperten arjun Take 1 tablet (12.5 mg total) by mouth 2 (two) times a day with meals Active amLODIPine (NORVASC) 10 mg tabletIndicat ions:hyperten arjun Take 1 tablet (10 mg total) by mouth director of early childhood education before breakfast Active dulaglutide (TRULICITY) 0.75 mg/0.5 mL pen injectorIndic ations:type 2 diabetes mellitus,Frid ays Inject 0.5 mL (0.75 mg total) under the skin every 7 days Active traMADoL (ULTRAM) 50 mg tabletIndicat ions:Pain Take 1 tablet (50 mg total) by mouth every 6 (six) hours Active apixaban (ELIQUIS) 5 mg tabletIndicat ions:Venous Thrombosis,RU E DVT 08/2024 Take 1 tablet (5 mg total) by mouth 2 (two) times a day Active lisinopriL (PRINIVIL,ZES TRIL) 20 mg tabletIndicat ions:hyperten arjun Take 1 tablet (20 mg total) by mouth director of early childhood education before breakfast Active gabapentin (NEURONTIN) 300 mg capsuleIndica tions:Neuropa thic Pain Take 1 capsule (300 mg total) by mouth 3 (three) times a week MWF Active Slynd tablet tablet 01/21/20 25 Active LANTUS 100 unit/mL (3 mL) pen for injection 01/25/20 25 Active OneTouch Delica Plus Lancet 33 gauge misc 01/25/20 25 Active metroNIDAZOLE (FLAGYL) 500 mg tablet 01/25/20 25 Active prednisoLONE acetate (PRED FORTE) 1 % ophthalmic suspension Administer 1 drop into the right eye 3 (three) times a day 5 mL 3 02/19/20 25 Active moxifloxacin (VIGAMOX) 0.5 % ophthalmic solution Administer 1 drop into the right eye 3 (three) times a day 3 mL 2 02/19/20 25 Active timoloL (BETIMOL) 0.5 % ophthalmic solution Administer 1 drop into the right eye 2 (two) times a day 5 mL 3 02/19/20 25 2025 Active brinzolamide- brimonidine (Simbrinza) 0.2-1 % drops,suspens ion Administer 1 drop into the right eye 3 (three) times a day 8 mL 3 02/19/20 25 Active latanoprost (XALATAN) 0.005 % ophthalmic solution Administer 1 drop into the right eye nightly 2.5 mL 11 02/22/20 25 Active ferrous sulfate 325 mg (65 mg of elemental iron) tablet Take 1 tablet (325 mg total) by mouth Active insulin lispro (HumaLOG, ADMELOG) 100 unit/mL vial for injection INJECT 5 UNITS SUBCUTANEOUSLY WITH MEALS Active nystatin powder APPLY TOPICALLY THREE TIMES DAILY 08/25/20 23 Active sevelamer (RENVELA) 800 mg tablet Take 1 tablet (800 mg total) by mouth 02/28/20 24 Active difluprednate (DUREZOL) 0.05 % drops Administer 1 drop into the right eye 4 (four) times a day 5 mL 3 01/26/20 25 2024 Discontinued Active Problems Problem Noted Date Diagnosed Date Neovascular glaucoma of right eye, severe stage 02/21/2025 Assessment & Plan (02/24/2025 2:02 PM CDT): Today IOP back up to upper 40s. She is adamant in not allowing an AC tap today in clinic or injection of intracameral avastin as she feels as though the AC tap a few days ago was intolerable. Discussed that IOP at this range could cause her to lose the light she has remaining (currently bare LP on my testing). She understands this and still does not want the procedure today. I also asked if they could stay for us to try to coordinate a diode procedure and avastin injection at the same time today, the patient and her mother however stated they do not have time today. Once again discussed danger of LP to NLP vision and they voiced understanding of this. Will see if we can coordinate with glaucoma team for procedure and call patient for scheduling. Given IOP concerns, will first address this prior to visiting possible TRD/funnel RD repair. Addendum (2PM): Spoke to Dr. Gupta who offered for diode tomorrow as well. Called patient/family and they state they are unable to do anything tomorrow still. They are OK with next week. Will try to coordinate with Dr. Gupta on or Dr. Worley on Friday for diode in clinic and intracameral avastin +/- AC tap at that time. 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 Today discussed repeated guarded visual prognosis of surgery. Patient does not feel she has usable vision in her right eye and is unsure if she wants to proceed with surgery. After addressing NVG will re-visit possible surgery in the right eye. Assessment & Plan (11/01/2024 2:13 PM DIRECTOR OF DATABASE MARKETING): With severe tractional retinal detachments in both [...] Never 04/16/2023 How often do you attend caodaism or baptist serv ices? Never 04/16/2023 Do you belong to any clubs o r organizations such as caodaism groups, unions, fraternal or athletic groups, or [...] slept in a custodial (including now)? No 04/16/2023 Housing Stability Vital [...] on file Legal Sex Female 8:53 PM DIRECTOR OF DATABASE MARKETING Gender Identity Female 12/23/2024 9:35 AM DIRECTOR OF DATABASE MARKETING Sexual Orientation Straight 12/23/2024 9: 35 AM DIRECTOR OF DATABASE MARKETING Last Filed Vital Signs Vital Sign Reading [...] cm (5' 7 ) 12/23/2024 9:15 AM DIRECTOR OF DATABASE MARKETING Body Mass Index 38.84 12/23/2024 9:15 AM DIRECTOR OF DATABASE MARKETING Plan of Treatment Not on file Medical Devices Implanted Type Area Roll Hauler Device Identifier Shelf Expiration Date Model / Serial / Lot [employer] Lens Iol [id number] [employer] [id number] - [id number] - [id number] Implanted:Qty: 1 on 01/10/2025 by Bita Vega MD at [facility] Lens Right: Eye [employer] 06/14/2026 [id number] / [id number] Procedures Procedure Name Priority Date/Time Associated Diagnosis Comments B-SCAN ULTRASOUND 59278 - OD - RIGHT EYE Routine 02/24/2025 12:45 PM CDT Traction detachment of both retinas PARACENTESIS OF ANTERIOR CHAMBER, THERAPEUTIC - OD - RIGHT EYE Routine 02/18/2025 4:29 PM CDT Neovascular glaucoma of right eye, indeterminate stage POCT GLUCOSE DEVICE Routine 01/10/2025 1 2:14 PM CDT EXTRACTION CATARACT WITH LENS IMPLANT. 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 POCT GLUCOSE DEVICE Routine 01/10/2025 1 1:22 AM CDT POCT GLUCOSE DEVICE Routine 01/10/2025 1 0:34 AM CDT POCT HCG, URINE Routine 01/10/2025 9:30 AM CDT POCT TE-N-CTT-GLU-HCT,WB - ISTAT Routine 01/10/2025 9:28 AM CDT EGFR Routine 09/23/2023 5:39 PM DIRECTOR OF DATABASE MARKETING ALBUMIN CREATININE RATIO, URINE Routine 04/17/2023 4:23 PM CDT LIPID PANEL Routine 04/17/2023 1:03 PM CDT HEMOGLOBIN A1C Routine 04/16/2023 7:06 AM CDT from Last 3 Months or Most Recently Relevant to Health Maintenance Results * B-SCAN ULTRASOUND 40981 - OD - RIGHT EYE (02/24/2025 12:45 PM CDT) Anatomical Region Laterality Modality Head Ultrasound Narrative 02/24/2025 12:45 PM CDT Quality was good. Findings included normal observations. Notes Funnel RD us Luis Rodriguez MD OPHTH ULTRASOUND Final Res ult * Paracentesis of Anterior Chamber, Therapeutic - OD - Right Eye (02/18/2025 4:29 PM CDT) Anatomical Region Laterality Modality Head Other Narrative 02/18/2025 4:29 PM CDT Time Out Informed consent was obtained after all risks, benefits and alternatives were explained to the patient. The patient understood, agreed and wished to proceed. Timeout was completed verifying the patient, procedure, laterality and allergies. Anesthesia Anesthetic medications included Proparacaine 5%. Anterior Chamber Paracentesis Additional preperation included the placement of a lid speculum, and an additional drop of betadine was instilled. The patient was positioned at the slit lamp. A 30 gauge needle on a 1cc syringe was used to withdraw 0.2mL of aqueous humor. The lid speculum was removed. Post-op The patient tolerated the procedure, there were no complications during today's treatment. The patient received written and verbal post procedure care education. The attending physician was present for the entire procedure. Notes Moxifloxacin before and after No leak Iop 55--> 22 us Bita Vega MD [facility] PROCEDURES Fin al Result * (ABNORMAL) POCT glucose (01/10/2025 12:14 PM CDT) Glucose, POC 249(H) 70 - 199 mg/dL Blood 01/10/2025 12:1 4 PM CDT 01/10/2025 12:14 PM CDT Result [facility] us Bita Vega MD LAB POCT ORDERABLES - DEVIC E Final Result Performing Organization Address [facility] Co de Phone Number [facility] [place] [address] * (ABNORMAL) POCT glucose (01/10/2025 11:22 AM CDT) Glucose, POC 334(H) 70 - 199 mg/dL Blood 01/10/2025 11:2 2 AM CDT 01/10/2025 11:22 AM CDT us Bita Vega MD LAB POCT ORDERABLES - DEVIC E Final Result Performing Organization Address [facility]/ZIP Co de Phone Number [facility] Department [place] [address] * (ABNORMAL) POCT glucose (01/10/2025 10:34 AM CDT) Pathologist [facility] Glucose, POC 377(H) 70 - 199 mg/dL Blood 01/10/2025 10:3 4 AM CDT 01/10/2025 10:34 AM CDT us Bita Vega MD LAB POCT ORDERABLES - DEVIC E Final Result [facility] Department [place] [address] * POCT hCG, urine (01/10/2025 9:30 AM CDT) [facility] HCG, ur, POC Negative Negative Lot Number [id number] QC Backgroud Clear Acceptable QC Control Line Acceptable Urine 01/10/2025 9:30 AM CDT us Carla Neri MD POINT OF CARE TEST ORDERA BLES Final Result * (ABNORMAL) POCT OO-P-UHG-GLU-HCT, WB - ISTAT (01/10/2025 9:28 AM CDT) [facility] Na POC 132(L) 135 - 145 mmol/L K POC 4.4 3.3 - 4.9 mmol/L [facility] Comment: Interpretive Data This method is not able to assess for hemolysis, which may falsely increase potassium concentrations. If further testing is needed to evaluate this result, consider in-laboratory plasma potassium. Current Interpretive Data was last revised on 2022. Glucose POC i-STAT 438(H) 70 - 199 mg/dL [facility] Hct, POC 39.0 35.6 - 45.5 % [facility] Blood 01/10/2025 9:28 AM CDT 01/10/2025 9:28 AM CDT Bita Vega MD LAB POCT ORDERABLES - DEVIC E Final Result [facility] [place] [address] * eGFR (09/23/2023 5:39 PM DIRECTOR OF DATABASE MARKETING) eGFR 22 mL/min/1. 73 m2 [facility] [...] last reviewed 2021. Blood 09/23/2023 5:39 PM DIRECTOR OF DATABASE MARKETING 09/23/2023 8:31 PM DIRECTOR OF DATABASE MARKETING us Tyrel Simmons MD LAB BLOOD ORDERABLES Final Result Performing Organization Address City/[facility]/ZIP Co de Phone Number AMANDAJONNIE [address] [address] Department [place] [address] * (ABNORMAL) Albumin Creatinine Ratio, Urine (04/17/2023 [...] LAB URINE ORDERABLES Final Re sult [facility] [address] [facility] Department [place] [address] * (ABNORMAL) Lipid panel (04/17/2023 1:03 PM [...] LAB BLOOD ORDERABLES Final Re sult [facility] [address] [facility] Department [place] [address] * (ABNORMAL) Hemoglobin A1c (04/16/2023 [...] and children were not included. (Diabetes Care 31:[id number], 2008). The eAG is not equivalent to a fasting glucose. Blood 04/16/2023 7:06 AM CDT 04/16/2023 7:45 AM CDT Amilcar Estrada MD LAB BLOOD ORDERABLES Final Re sult [facility] [address] [facility] Department [place] [address] from Last 3 Months or Most Recently Relevant to Health Maintenance Insurance [facility] MEDICARE Advance Directives For more information, please contact: [phone] Documents on File Type Date Recorded Patient Supervisor Travel Trailer Expl anation ADVANCE DIRECTIVE 04/23/2023 12:11 PM Breana r of Electronic Train Control Technician-Medical ADVANCE DIRECTIVE 04/23/2023 12:11 PM POLS T [...] Communication Kianna Nunez Sister Health Care Agent [email or web address] Suellen Resendiz Mother First [facility] Health Care Agent [email or web address] Teams [id number]|2025-03-19 23:09:00|2025-03-19 23:09:00|XMS_ITS|BKG DAEMON|External Medical Summaries|[id number]|" Clinical Summary Created on: March 19, 2025 Gay Canales : 1990 Sex: Female Author Organization [facility] Address [address] [place] [address] Care Team Providers Care Hog Handler Name Role Phone Cherise Patrick Primary Care Provider [phone] Allergies No known active allergies Medications furosemide (LASIX) 40 mg tabletIndicat ions:hyperten arjun Take 1 tablet (40 mg total) by mouth director of early childhood education before breakfast Active carvediloL (COREG) 12.5 mg tabletIndicat ions:hyperten arjun Take 1 tablet (12.5 mg total) by mouth 2 (two) times a day with meals Active amLODIPine (NORVASC) 10 mg tabletIndicat ions:hyperten arjun Take 1 tablet (10 mg total) by mouth director of early childhood education before breakfast Active dulaglutide (TRULICITY) 0.75 mg/0.5 mL pen injectorIndic ations:type 2 diabetes mellitus,Frid ays Inject 0.5 mL (0.75 mg total) under the skin every 7 days Active traMADoL (ULTRAM) 50 mg tabletIndicat ions:Pain Take 1 tablet (50 mg total) by mouth every 6 (six) hours Active apixaban (ELIQUIS) 5 mg tabletIndicat ions:Venous Thrombosis,RU E DVT 08/2024 Take 1 tablet (5 mg total) by mouth 2 (two) times a day Active lisinopriL (PRINIVIL,ZES TRIL) 20 mg tabletIndicat ions:hyperten arjun Take 1 tablet (20 mg total) by mouth director of early childhood education before breakfast Active gabapentin (NEURONTIN) 300 mg capsuleIndica tions:Neuropa thic Pain Take 1 capsule (300 mg total) by mouth 3 (three) times a week MWF Active Slynd tablet tablet 01/21/20 25 Active LANTUS 100 unit/mL (3 mL) pen for injection 01/25/20 25 Active OneTouch Delica Plus Lancet 33 gauge misc 01/25/20 25 Active metroNIDAZOLE (FLAGYL) 500 mg tablet 01/25/20 25 Active prednisoLONE acetate (PRED FORTE) 1 % ophthalmic suspension Administer 1 drop into the right eye 3 (three) times a day 5 mL 3 02/19/20 25 Active moxifloxacin (VIGAMOX) 0.5 % ophthalmic solution Administer 1 drop into the right eye 3 (three) times a day 3 mL 2 02/19/20 25 Active timoloL (BETIMOL) 0.5 % ophthalmic solution Administer 1 drop into the right eye 2 (two) times a day 5 mL 3 02/19/20 25 2025 Active brinzolamide- brimonidine (Simbrinza) 0.2-1 % drops,suspens ion Administer 1 drop into the right eye 3 (three) times a day 8 mL 3 02/19/20 25 Active latanoprost (XALATAN) 0.005 % ophthalmic solution Administer 1 drop into the right eye nightly 2.5 mL 11 02/22/20 25 Active ferrous sulfate 325 mg (65 mg of elemental iron) tablet Take 1 tablet (325 mg total) by mouth Active insulin lispro (HumaLOG, ADMELOG) 100 unit/mL vial for injection INJECT 5 UNITS SUBCUTANEOUSLY WITH MEALS Active nystatin powder APPLY TOPICALLY THREE TIMES DAILY 08/25/20 23 Active sevelamer (RENVELA) 800 mg tablet Take 1 tablet (800 mg total) by mouth 02/28/20 24 Active difluprednate (DUREZOL) 0.05 % drops Administer 1 drop into the right eye 4 (four) times a day 5 mL 3 01/26/20 25 2024 Discontinued Active Problems Problem Noted Date Diagnosed Date Neovascular glaucoma of right eye, severe stage 02/21/2025 Assessment & Plan (02/24/2025 2:02 PM CDT): Today IOP back up to upper 40s. She is adamant in not allowing an AC tap today in clinic or injection of intracameral avastin as she feels as though the AC tap a few days ago was intolerable. Discussed that IOP at this range could cause her to lose the light she has remaining (currently bare LP on my testing). She understands this and still does not want the procedure today. I also asked if they could stay for us to try to coordinate a diode procedure and avastin injection at the same time today, the patient and her mother however stated they do not have time today. Once again discussed danger of LP to NLP vision and they voiced understanding of this. Will see if we can coordinate with glaucoma team for procedure and call patient for scheduling. Given IOP concerns, will first address this prior to visiting possible TRD/funnel RD repair. Addendum (2PM): Spoke to Dr. Gupta who offered for diode tomorrow as well. Called patient/family and they state they are unable to do anything tomorrow still. They are OK with next week. Will try to coordinate with Dr. Gupta on or Dr. Worley on Friday for diode in clinic and intracameral avastin +/- AC tap at that time. 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 Today discussed repeated guarded visual prognosis of surgery. Patient does not feel she has usable vision in her right eye and is unsure if she wants to proceed with surgery. After addressing NVG will re-visit possible surgery in the right eye. Assessment & Plan (11/01/2024 2:13 PM DIRECTOR OF DATABASE MARKETING): With severe tractional retinal detachments in both [...] Encounters Date Type Department Care Team Description 02/24/2025 11:10 AM CDT Office Visit [facility] Ophthalmology [address] [place] [phone] Luis Rodriguez MD Traction detachment of both retinas (Primary Dx); Neovascular glaucoma of right eye, severe stage 02/21/2025 11:00 AM CDT Office Visit [facility] Ophthalmology [address] [place] [phone] Sumi Gupta MD Neovascular glaucoma of right eye, severe stage (Primary Dx) 02/18/2025 3:45 PM CDT Office Visit [facility] Ophthalmology [address] [place] [phone] Bita Vega MD Pseudophakia, right eye (Primary Dx); Neovascular glaucoma of right eye, indeterminate stage; Traction detachment of both retinas 01/25/2025 9:15 AM CDT Office Visit [facility] Ophthalmology [address], [address] [place] [address] Bita Vega MD Pseudophakia, right eye (Primary Dx); Traction detachment of both retinas 01/12/2025 Telephone [facility] Ophthalmology [address] [phone] Nancie Hoyos MD 01/11/2025 9:15 AM CDT Office Visit [facility] Ophthalmology [address], [address] [place] [address] Bita Vega MD Pseudophakia, right eye (Primary Dx) 01/10/2025 11:39 AM CDT Anesthesia Event [facility] [address] [place] [address] Carla Neri MD Mallette, Allison Anne, NP 01/10/2025 10:30 AM CDT - 01/10/2025 11:15 AM CDT Surgery [facility] [address] [place] [address] Bita Vega MD COMPLEX EXTRACTION CATARACT - PHACOEMULSIFICATION AND LENS IMPLANT 01/10/2025 8:34 AM CDT - 01/10/2025 12:39 PM CDT Hospital Encounter [facility] [address] [place] [address] Bita Vega MD 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 Ophthalmology [facility] [address] [phone] Bita Vega MD 12/29/2024 Telephone [facility] Ophthalmology [address] [place] [phone] Bita Vega MD Med Refill; Rx change from Last 3 Months Surgical History Surgery Date Site/Laterality Comments ABOVE KNEE LEG AMPUTATION 12/04/2022 - 12/31/2022 Left SHOULDER SURGERY 08/03/2024 - 09/02/2024 Right Medical History Medical History Date Comments Hypertension Diabetes mellitus (HCC) CHF (congestive heart failure) (HCC) CKD (chronic kidney disease) Hx of AKA (above knee amputation) (HCC) Left Diabetic retinopathy (HCC) Family History Medical History Relation Name [...] Never 04/16/2023 How often do you attend caodaism or baptist serv ices? Never 04/16/2023 Do you belong to any clubs o r organizations such as caodaism groups, unions, fraternal or athletic groups, or [...] slept in a custodial (including now)? No 04/16/2023 Housing Stability Vital [...] on file Legal Sex Female 8:53 PM DIRECTOR OF DATABASE MARKETING Gender Identity Female 12/23/2024 9:35 AM DIRECTOR OF DATABASE MARKETING Sexual Orientation Straight 12/23/2024 9: 35 AM DIRECTOR OF DATABASE MARKETING Obstetrics History Last Filed Vital Signs Vital [...] cm (5' 7 ) 12/23/2024 9:15 AM DIRECTOR OF DATABASE MARKETING Body Mass Index 38.84 12/23/2024 9:15 AM DIRECTOR OF DATABASE MARKETING Plan of Treatment Health Maintenance Due Date Last Done Comments Cervical Cancer Screening 1992 Depression Screening 1992 Hepatitis C Screening 1992 Foot Exam 1992 HPV Vaccines (3 - 3-dose series) 10/25/2008 06/24/20 08, 04/25/2008 Regular Well Visit/Exam 18-64 2010 Pneumococcal vaccine <65 (1 of 2 - PCV) 2011 Albumin Creatinine Ratio, Urine 04/17/2024 Lipid Panel 04/17/2024 04/17/2023, 12/02/2022 eGFR 09/23/2024 09/23/2023, 04/04, 04/25/2023, Additional history exists Hemoglobin A1C 02/26/2025 08/28/2024, 05/04, 02/23/2024, Additional history exists Influenza Vaccine (Season Ended) 2025 Dilated Eye Exam 02/24/2026 02/24/2025, 11/01/2024 DTaP/Tdap/Td Vaccine (7 - Td or Tdap) 12/02/2032 12/02/2022, 08/14/2006, 05/08/1994, Additional history exists Hepatitis B Screening Completed 03/06/1994 , 07/27/1993, 06/01/1993 Varicella Vaccines Completed 04/25/2008, 08/13/2007 Medical Devices Implanted Type Area Roll Hauler Device Identifier Shelf Expiration Date Model / Serial / Lot [employer] Lens Iol [id number] [facility] [id number] - [id number] - [id number] Implanted:Qty: 1 on 01/10/2025 by Bita Vega MD at [facility] Lens Right: Eye [employer] 06/14/2026 [id number] / [id number] Procedures Procedure Name Priority Date/Time Associated Diagnosis Comments B-SCAN ULTRASOUND 20618 - OD - RIGHT EYE Routine 02/24/2025 12:45 PM CDT Traction detachment of both retinas PARACENTESIS OF ANTERIOR CHAMBER, THERAPEUTIC - OD - RIGHT EYE Routine 02/18/2025 4:29 PM CDT Neovascular glaucoma of right eye, indeterminate stage POCT GLUCOSE DEVICE Routine 01/10/2025 1 2:14 PM CDT EXTRACTION CATARACT WITH LENS IMPLANT. 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 POCT GLUCOSE DEVICE Routine 01/10/2025 1 1:22 AM CDT POCT GLUCOSE DEVICE Routine 01/10/2025 1 0:34 AM CDT POCT HCG, URINE Routine 01/10/2025 9:30 AM CDT POCT LC-Y-OLN-GLU-HCT,WB - ISTAT Routine 01/10/2025 9:28 AM CDT EGFR Routine 09/23/2023 5:39 PM DIRECTOR OF DATABASE MARKETING ALBUMIN CREATININE RATIO, URINE Routine 04/17/2023 4:23 PM CDT LIPID PANEL Routine 04/17/2023 1:03 PM CDT HEMOGLOBIN A1C Routine 04/16/2023 7:06 AM CDT from Last 3 Months or Most Recently Relevant to Health Maintenance Results * B-SCAN ULTRASOUND 95878 - OD - RIGHT EYE (02/24/2025 12:45 PM CDT) Anatomical Region Laterality Modality Head Ultrasound Narrative 02/24/2025 12:45 PM CDT Quality was good. Findings included normal observations. Notes Funnel RD us Luis Rodriguez MD OPHTH ULTRASOUND Final Res ult * Paracentesis of Anterior Chamber, Therapeutic - OD - Right Eye (02/18/2025 4:29 PM CDT) Anatomical Region Laterality Modality Head Other Narrative 02/18/2025 4:29 PM CDT Time Out Informed consent was obtained after all risks, benefits and alternatives were explained to the patient. The patient understood, agreed and wished to proceed. Timeout was completed verifying the patient, procedure, laterality and allergies. Anesthesia Anesthetic medications included Proparacaine 5%. Anterior Chamber Paracentesis Additional preperation included the placement of a lid speculum, and an additional drop of betadine was instilled. The patient was positioned at the slit lamp. A 30 gauge needle on a 1cc syringe was used to withdraw 0.2mL of aqueous humor. The lid speculum was removed. Post-op The patient tolerated the procedure, there were no complications during today's treatment. The patient received written and verbal post procedure care education. The attending physician was present for the entire procedure. Notes Moxifloxacin before and after No leak Iop 55--> 22 us Bita Vega MD OPH CLINIC PROCEDURES Fin al Result * (ABNORMAL) POCT glucose (01/10/2025 12:14 PM CDT) Glucose, POC 249(H) 70 - 199 mg/dL Blood 01/10/2025 12:1 4 PM CDT 01/10/2025 12:14 PM CDT Result [facility] us Bita Vega MD LAB POCT ORDERABLES - DEVIC E Final Result Performing Organization Address City/State/[facility] Co de Phone Number [facility] [place] [address] * (ABNORMAL) POCT glucose (01/10/2025 11:22 AM CDT) Glucose, POC 334(H) 70 - 199 mg/dL Blood 01/10/2025 11:2 2 AM CDT 01/10/2025 11:22 AM CDT Result [facility] us Bita Vega MD LAB POCT ORDERABLES - DEVIC E Final Result [facility] [place] [address] * (ABNORMAL) POCT glucose (01/10/2025 10:34 AM CDT) [facility] Glucose, POC 377(H) 70 - 199 mg/dL Blood 01/10/2025 10:3 4 AM CDT 01/10/2025 10:34 AM CDT Bita Vega MD LAB POCT ORDERABLES - DEVIC E Final Result Performing Organization Address City/[facility] Co de Phone Number [facility] [place] [address] * POCT hCG, urine (01/10/2025 9:30 AM CDT) [facility] HCG, ur, POC Negative Negative Lot Number [id number] QC Backgroud Clear Acceptable QC Control Line Acceptable Urine 01/10/2025 9:30 AM CDT Carla Neri MD POINT OF CARE TEST ORDERA BLES Final Result * (ABNORMAL) POCT QC-G-ZFU-GLU-HCT, WB - ISTAT (01/10/2025 9:28 AM CDT) [facility] Na POC 132(L) 135 - 145 mmol/L K POC 4.4 3.3 - 4.9 mmol/L [facility] Comment: Interpretive Data This method is not able to assess for hemolysis, which may falsely increase potassium concentrations. If further testing is needed to evaluate this result, consider in-laboratory plasma potassium. Current Interpretive Data was last revised on 2022. Glucose POC i-STAT 438(H) 70 - 199 mg/dL [facility] Hct, POC 39.0 35.6 - 45.5 % [facility] Blood 01/10/2025 9:28 AM CDT 01/10/2025 9:28 AM CDT us Bita Vega MD LAB POCT ORDERABLES - DEVIC E Final Result [facility] [place] [address] * eGFR (09/23/2023 5:39 PM DIRECTOR OF DATABASE MARKETING) eGFR 22 mL/min/1. 73 m2 [facility] [...] last reviewed 2021. Blood 09/23/2023 5:39 PM DIRECTOR OF DATABASE MARKETING 09/23/2023 8:31 PM DIRECTOR OF DATABASE MARKETING us Tyrel Simmons MD LAB BLOOD ORDERABLES Final Result [facility] [address] [place] [address] * (ABNORMAL) Albumin Creatinine Ratio, Urine (04/17/2023 [...] LAB URINE ORDERABLES Final Re sult [facility] [address] [facility] Department [place] [address] * (ABNORMAL) Lipid panel (04/17/2023 1:03 PM [...] last revised on 2018. Chol/HDL ratio 3 [facility] Blood 04/17/2023 1:03 PM CDT 04/17/2023 1:51 PM CDT us Sultan Sofía Muro MD LAB BLOOD ORDERABLES Final Re sult [facility] [address] [facility] Department [place] [address] * (ABNORMAL) Hemoglobin A1c (04/16/2023 7:06 AM CDT) Hgb A1C 6.5(H) 4.0 - 5.6 % [facility] Estimated Average Glucose 140 mg/dL [facility] Comment: The ADA recommends reporting an estimated Average Glucose (eAG) with all Hemoglobin A1c results using the equation derived from a study of 507 normal and diabetic adults. Minority populations were underrepresented and children were not included. (Diabetes Care 31:5360-2735, 2008). The eAG is not equivalent to a fasting glucose. Blood 04/16/2023 7:06 AM CDT 04/16/2023 7:45 AM CDT us Amilcar Estrada MD LAB BLOOD ORDERABLES Final Re sult [facility] [address] [facility] Department [place] [address] from Last 3 Months or Most Recently Relevant to Health Maintenance Insurance [facility] MEDICARE Member Subscriber Plan / Payer (Ef fective 2025-Present) Name:Gay Canales Member ID:[id number] Relation to Subscriber:Self Name:Gay Canales Subscriber ID:[id number] Payer ID:[id number] Group ID:Not on file Type:MEDICARE TRADITIONAL Address: [facility]
--- OUTSIDE RECORDS SUMMARY | 2025-03-19 23:09 | XMS_ITS | Data Portability ---
Author Organization [facility] Address [address] [place] [id number] Assessment Encounter Date Assessment Date Assessment LastModified by Organization Details LastModified Time 02/14/2023 02/14/2023 Sections of the HPI, exam and assessment completed by TOÑITO Vidal student and have been reviewed by me. I agree with the exam findings, assessment and plan except where specifically documented or amended. -Cherise Patrick, [facility], PAJose EnriqueC [email or web address] Not available 02/14/2023 15:04:33 09/08/2024 09/08/2024 Advised pt to f/u in 1 mo. [email or web address] Not available 09/09/2024 10:18:52 Plan of Treatment Reminders Order Date Submit Date Provider Last Modified By Organization Details Last Modified Time Details Appointments None recorded. Lab HbA1c (hemoglobin A1c), blood 2024 025 RIGOBERTO [facility], [address], [place], [address], 5 11:17:10 ESR (erythrocyt e sedimentati on rate), blood 2024 025 RIGOBERTO [facility], [address], [place], [address], 5 11:17:11 test, urine 2023 024 [email or web address] In-Office Order, Internal Use Only DO Not Attach Compendium DO Not Attach Compendium, Do Not Delete/merge, [id number] 4 17:28:33 microalbumi n/creatinin e, mass ratio, urine 2023 024 [facility], [address], [address], [place], [address], 4 12:29:42 pro BNP (pro B-type natriuretic peptide), serum or plasma 2022 023 [facility], [address], [address], [place], [address], 3 16:14:02 CMP, serum or plasma 2022 023 [facility], [address], [address], [place], [address], 3 16:14:05 lipid panel, serum 2022 023 [facility], [address], [place], [address], 3 16:14:04 CBC w/ auto diff 2022 023 [facility], [address], [address], [place], [address], 3 16:14:08 TSH + free T4, serum 2022 023 [facility], [address], [address], [place], [address], 3 16:14:03 CK (creatine kinase), total, serum 2022 023 [facility], [address], [place], [address], 3 16:14:07 CMP, serum or plasma 2022 023 [facility], [address], [place], [address], 3 13:01:01 lipid panel, serum 2022 023 [facility], [address], [address], [place], [address], 3 13:01:00 TSH + free T4, serum 2022 023 [facility], [address], [address], [place], [address], 3 13:01:01 iron + total iron-bindin g capacity (TIBC), serum 2022 023 [facility], [address], [address], [place], [address], 3 13:01:00 ferritin, serum or plasma 2022 023 [facility], [address], [address], [place], [address], 3 13:01:00 CBC w/ auto diff 2022 023 [facility], [address], [place], [address], 3 13:01:00 Referral wound care referral [address] [facility], [address], [place], [address], 5 08:06:20 gait training referral [address] (Outpatient Physical Therapy), [address], [place], [address], 5 08:28:52 cardiologis t referral 2023 024 [place] [address] Mateo Ortiz MD, [address], [place], [address], 4 08:21:20 ophthalmolo gist referral 2023 024 [email or web address] [facility] [place], [address] [facility], [place], [address], 4 08:07:09 home health referral 2022 023 [facility], [address] [facility], [place], [address], 3 12:01:50 wound care referral - h/o uncontrolle d type 2 diabetes 2022 023 [facility], [address], [place], [address], 3 09:30:31 Procedures None recorded. Surgeries None recorded. Imaging None recorded. Medication Orders carvedilol 25 mg tablet 2024 025 [facility] [address], [facility] [place], [address], 5 18:41:40 Trulicity 0.75 mg/0.5 mL subcutaneou s pen injector 2024 025 [facility], [address] [place], [address], 5 18:41:39 tramadol 50 mg tablet 2024 025 [facility] [address], [facility] [place], [address], 5 16:19:51 Eliquis 5 mg tablet 2023 024 maria [facility] [address], [facility] [place], [address], 4 17:27:56 Senexon-S 8.6 mg-50 mg tablet 2023 [facility] [address], [address] [place] [address], [address], 4 17:12:34 furosemide 40 mg tablet 2023 [facility] [address], [address] [place] [address], [address], 4 17:12:40 carvedilol 25 mg tablet 2023 [facility] [address], [address] [place] [address], [address], 4 17:12:33 gabapentin 300 mg capsule 2023 [facility] [address], [address] [place] [address], [address], 4 17:12:36 Slynd 4 mg (28) tablet 2023 [facility] [address], [address] [place] [address], [address], 4 10:14:30 Trulicity 0.75 mg/0.5 mL subcutaneou s pen injector 2023 [facility] [address], [address] [place] [address], [address], 4 10:14:34 amlodipine 10 mg tablet 2023 024 [facility] [address], [address] [place] [address], [address], 4 17:12:32 lisinopril 20 mg tablet 2023 [facility] [address], [address] [place] [address], [address], 4 17:12:29 methocarbam ol 500 mg tablet 2023 024 [facility] [address], [address] [place] [address], [address], 4 17:12:31 tramadol 50 mg tablet 2023 024 [facility] [address], [address] [place] [address], [address], 4 10:12:20 Trulicity 0.75 mg/0.5 mL subcutaneou s pen injector 2022 023 [place] [address], [address] [place] [address], [address], 4 12:08:56 OneTouch Verio test strips 2022 023 [place] [address], [address] [place] [address], [address], 4 12:09:17 metformin 500 mg tablet 2022 023 [facility] [address], [address] [place] [address], [address], 4 12:09:28 Patient TargetsNo targets recorded. Patient InstructionsNo instructions recorded. Reason for Referral h/o uncontrolled type 2 diab etes Referring Physician: [facility], Encounter Date: 02/14/2023 Home Health Referral for Amp utated left lower limb below knee Referring Physician: [facility], Encounter Date: 03/20/2023 Corrugator Helper Referral for Bilateral cataracts Referring Physician: [facility], Encounter Date: 09/08/2024 Nursery Technician Referral for He art failure with normal ejection fraction Referring Physician: [facility], Encounter Date: 09/08/2024 Gait Training Referral for A mputated right lower limb below knee Referring Physician: Natalee Jennings, Family [facility], Encounter Date: 12/06/2024 Referring Physician: Natalee garza, Family Medicine, Encounter Date: 12/06/2024 Results Created Date Observation Date Name Description Value Unit Range Abnormal Flag Note LastModifiedBy Organization Detail LastModifiedTime 01/31/2001/30/2023 HbA1c (hemo globi n A1c), blood HbA1c 5.6 Not Available In-Office Order Internal Use Only DO Not Attach Compendium DO Not Attach Compendium, Do Not Delete/merge, [id number] 01/30/2023 12:02:12 03/20/2003/21/2023 NT-SD OBNP nt-probnp 2423 pg/mL 0-130 above high [...] enden t 300 pg/mL Not Available [facility] ([facility]) [address] [place], [address], 03/21/2023 16:14:02 03/20/20 23 03/21/2023 TSH+F REE T4 TSH 10.100 uIU/m L 0.450- 4.500 above high normal Not Available [facility] ([facility]) [address] [place], [address], 03/21/2023 16:14:03 03/20/20 23 03/21/2023 TSH+F REE T4 T4,free(dire ct) 1.04 NG/dL 0.82-1 .77 Not Available [facility] ([facility]) [address] [place], [address], 03/21/2023 16:14:03 03/20/20 23 03/21/2023 LIPID PANEL WITH LDL/H DL RATIO cholesterol, total 164 mg/dL 100-19 9 Not Available [facility] ([facility]) [address] [place], [address], 03/21/2023 16:14:04 03/20/20 23 03/21/2023 LIPID PANEL WITH LDL/H DL RATIO triglyceride s 56 mg/dL 0-149 Not Available [facility] [address] [place], [address], 03/21/2023 16:14:04 03/20/20 23 03/21/2023 LIPID PANEL WITH LDL/H DL RATIO HDL cholesterol 76 mg/dL >39 Not Available [facility] [address] [place], [address], 03/21/2023 16:14:04 03/20/20 23 03/21/2023 LIPID PANEL WITH LDL/H DL RATIO VLDL cholesterol aly 11 mg/dL 5-40 Not Available [facility]) [address] [place], [address], 03/21/2023 16:14:04 03/20/20 23 03/21/2023 LIPID PANEL WITH LDL/H DL RATIO LDL chol calc ([facility]) 77 mg/dL 0-99 Not Available [facility] [address] [place], [address], 03/21/2023 16:14:04 03/20/20 23 03/21/2023 LIPID PANEL WITH LDL/H DL RATIO LDL/HDL ratio 1.0 ratio 0.0-3. 2 LDL/H DL Ratio Men Women 1/2 Avg.R isk 1.0 1.5 Avg.R isk 3.6 3.2 2X Avg.R isk 6.2 5.0 3X Avg.R isk 8.0 6.1 Not Available [facility] ([facility]) [address] [facility] [place], [address], 03/21/2023 16:14:04 03/20/20 23 03/21/2023 COMP. METAB OLIC PANEL (14) glucose 110 mg/dL 70-99 above high normal Not Available [facility] ([facility]) [address] [facility] [place], [address], 03/21/2023 16:14:05 03/20/20 23 03/21/2023 COMP. METAB OLIC PANEL (14) BUN 11 mg/dL 6-20 Not Available [facility] ([facility]) [address] [facility] [place], [address], 03/21/2023 16:14:05 03/20/20 23 03/21/2023 COMP. METAB OLIC PANEL (14) creatinine 1.37 mg/dL 0.57-1 .00 above high normal Not Available [facility] ([facility]) [address] [place], [address], 03/21/2023 16:14:05 03/20/20 23 03/21/2023 COMP. METAB OLIC PANEL (14) eGFR 53 mL/mi n/1.7 3 >59 below low normal Not Available [facility] ([facility]) [address] [place], [address], 03/21/2023 16:14:05 03/20/20 23 03/21/2023 COMP. METAB OLIC PANEL (14) BUN/creatini ne ratio 8 9-23 below low normal Not Available [facility] ([facility]) [address] [place], [address], 03/21/2023 16:14:05 03/20/20 23 03/21/2023 COMP. METAB OLIC PANEL (14) sodium 142 mmol/ L 134-14 4 Not Available [facility] ([facility]) [address] [facility] [place], [address], 03/21/2023 16:14:05 03/20/20 23 03/21/2023 COMP. METAB OLIC PANEL (14) potassium 3.6 mmol/ L 3.5-5. 2 Not Available [facility] ([facility]) [address] [facility] [place], [address], 03/21/2023 16:14:05 03/20/20 23 03/21/2023 COMP. METAB OLIC PANEL (14) chloride 108 mmol/ L 96-106 above high normal Not Available [facility] ([facility]) [address] [facility] [place], [address], 03/21/2023 16:14:05 03/20/20 23 03/21/2023 COMP. METAB OLIC PANEL (14) carbon dioxide, total 23 mmol/ L 20-29 Not Available [facility] ([facility]) [address] [facility] [place], [address], 03/21/2023 16:14:05 03/20/20 23 03/21/2023 COMP. METAB OLIC PANEL (14) calcium 8.0 mg/dL 8.7-10 .2 below low normal Not Available [facility] ([facility]) [address] [facility] [place], [address], 03/21/2023 16:14:05 03/20/20 23 03/21/2023 COMP. METAB OLIC PANEL (14) protein, total 5.6 g/dL 6.0-8. 5 below low normal Not Available [facility] ([facility]) [address] [facility] [place], [address], 03/21/2023 16:14:05 03/20/20 23 03/21/2023 COMP. METAB OLIC PANEL (14) albumin 2.2 g/dL 3.9-5. 0 below low normal Not Available [facility] ([facility]) [address] [place], [address], 03/21/2023 16:14:05 03/20/20 23 03/21/2023 COMP. METAB OLIC PANEL (14) globulin, total 3.4 g/dL 1.5-4. 5 Not Available [facility] ([facility]) [address] [place], [address], 03/21/2023 16:14:05 03/20/20 23 03/21/2023 COMP. METAB OLIC PANEL (14) A/G ratio 0.6 1.2-2. 2 below low normal Not Available [facility] ([facility]) [address] [place], [address], 03/21/2023 16:14:05 03/20/20 23 03/21/2023 COMP. METAB OLIC PANEL (14) bilirubin, total 0.2 mg/dL 0.0-1. 2 Not Available [facility] ([facility]) [address] [place], [address], 03/21/2023 16:14:05 03/20/20 23 03/21/2023 COMP. METAB OLIC PANEL (14) alkaline phosphatase 409 IU/L 44-121 above high normal Not Available [facility] ([facility]) [address] [place], [address], 03/21/2023 16:14:05 03/20/20 23 03/21/2023 COMP. METAB OLIC PANEL (14) AST (SGOT) 32 IU/L 0-40 Not Available [facility] ([facility]) [address] [place], [address], 03/21/2023 16:14:05 03/20/20 23 03/21/2023 COMP. METAB OLIC PANEL (14) ALT (SGPT) 32 IU/L 0-32 Not Available [facility] ([facility]) [address] [place], [address], 03/21/2023 16:14:05 03/20/20 23 03/21/2023 CK creatine kinase,total 443 U/L 32-182 above high normal Not Available [facility] ([facility]) [address] [facility], [place], [address], 03/21/2023 16:14:07 03/20/20 23 03/21/2023 CBC WITH DIFFE RENTI AL/PL ATELE T WBC 6.0 x10e3 /uL 3.4-10 .8 Not Available [facility] ([facility]) [address] [facility], [place], [address], 03/21/2023 16:14:08 03/20/20 23 03/21/2023 CBC WITH DIFFE RENTI AL/PL ATELE T RBC 3.69 x10e6 /uL 3.77-5 .28 below low normal Not Available [facility] ([facility]) [address] [place], [address], 03/21/2023 16:14:08 03/20/20 23 03/21/2023 CBC WITH DIFFE RENTI AL/PL ATELE T hemoglobin 9.8 g/dL 11.1-1 5.9 below low normal Not Available [facility] ([facility]) [address] [place], [address], 03/21/2023 16:14:08 03/20/20 23 03/21/2023 CBC WITH DIFFE RENTI AL/PL ATELE T hematocrit 31.7 % 34.0-4 6.6 below low normal Not Available [facility] ([facility]) [address] [place], [address], 03/21/2023 16:14:08 03/20/20 23 03/21/2023 CBC WITH DIFFE RENTI AL/PL ATELE T MCV 86 fL 79-97 Not Available [facility] ([facility]) [address] [facility], [place], [address], 03/21/2023 16:14:08 03/20/20 23 03/21/2023 CBC WITH DIFFE RENTI AL/PL ATELE T MCH 26.6 pg 26.6-3 3.0 Not Available [facility] ([facility]) [address] [facility], [place], [address], 03/21/2023 16:14:08 03/20/20 23 03/21/2023 CBC WITH DIFFE RENTI AL/PL ATELE T MCHC 30.9 g/dL 31.5-3 5.7 below low normal Not Available [facility] ([facility]) [address] [facility], [place], [address], 03/21/2023 16:14:08 03/20/20 23 03/21/2023 CBC WITH DIFFE RENTI AL/PL ATELE T RDW 15.5 % 11.7-1 5.4 above high normal Not Available [facility] ([facility]) [address] [facility], [place], [address], 03/21/2023 16:14:08 03/20/20 23 03/21/2023 CBC WITH DIFFE RENTI AL/PL ATELE T platelets 505 x10e3 /uL 150-45 0 above high normal Not Available [facility] ([facility]) [address] [place], [address], 03/21/2023 16:14:08 03/20/20 23 03/21/2023 CBC WITH DIFFE RENTI AL/PL ATELE T neutrophils 67 % notest ab. Not Available [facility] ([facility]) [address] [facility], [place], [address], 03/21/2023 16:14:08 03/20/20 23 03/21/2023 CBC WITH DIFFE RENTI AL/PL ATELE T lymphs 21 % notest ab. Not Available [facility] ([facility]) [address] [facility], [place], [address], 03/21/2023 16:14:08 03/20/20 23 03/21/2023 CBC WITH DIFFE RENTI AL/PL ATELE T monocytes 7 % notest ab. Not Available [facility] ([facility]) [address] [facility], [place], [address], 03/21/2023 16:14:08 03/20/20 23 03/21/2023 CBC WITH DIFFE RENTI AL/PL ATELE T eos 5 % notest ab. Not Available [facility] ([facility]) [address] [facility], [place], [address], 03/21/2023 16:14:08 03/20/20 23 03/21/2023 CBC WITH DIFFE RENTI AL/PL ATELE T basos 0 % notest ab. Not Available [facility] ([facility]) [address] [facility], [place], [address], 03/21/2023 16:14:08 03/20/20 23 03/21/2023 CBC WITH DIFFE RENTI AL/PL ATELE T neutrophils (absolute) 4.0 x10e3 /uL 1.4-7. 0 Not Available [facility] ([facility]) [address] [facility], [place], [address], 03/21/2023 16:14:08 03/20/20 23 03/21/2023 CBC WITH DIFFE RENTI AL/PL ATELE T lymphs (absolute) 1.3 x10e3 /uL 0.7-3. 1 Not Available [facility] ([facility]) [address] [facility], [place], [address], 03/21/2023 16:14:08 03/20/20 23 03/21/2023 CBC WITH DIFFE RENTI AL/PL ATELE T monocytes(ab solute) 0.4 x10e3 /uL 0.1-0. 9 Not Available [facility] ([facility]) [address] [facility], [place], [address], 03/21/2023 16:14:08 03/20/20 23 03/21/2023 CBC WITH DIFFE RENTI AL/PL ATELE T eos (absolute) 0.3 x10e3 /uL 0.0-0. 4 Not Available [facility] ([facility]) [address] [facility], [place], [address], 03/21/2023 16:14:08 03/20/20 23 03/21/2023 CBC WITH DIFFE RENTI AL/PL ATELE T baso (absolute) 0.0 x10e3 /uL 0.0-0. 2 Not Available [facility] ([facility]) [address] [facility], [place], [address], 03/21/2023 16:14:08 03/20/20 23 03/21/2023 CBC WITH DIFFE RENTI AL/PL ATELE T immature granulocytes 0 % notest ab. Not Available [facility] ([facility]) [address] [facility], [place], [address], 03/21/2023 16:14:08 03/20/20 23 03/21/2023 CBC WITH DIFFE RENTI AL/PL ATELE T immature grans (abs) 0.0 x10e3 /uL 0.0-0. 1 Not Available [facility] ([facility]) [address] [place], [address], 03/21/2023 16:14:08 03/20/20 23 03/21/2023 CREAT INE KINAS E (CK), MB creatine kinase (CK), mb 3.4 NG/mL 0.0-5. 3 Not Available [facility] ([facility]) [address] [place], [address], 03/21/2023 16:14:01 02/22/20 24 02/23/2024 Diffe renti al panel - Body fluid specimen source [identifier] of body fluid Synovi al Fluid Sourc e Synov ial 02/22 12:36 AM CDT [facility] Not Available Not Available 02/21/2025 09:50:41 02/22/20 24 02/23/2024 Diffe renti al panel - Body fluid cells counted total [#] in body fluid 100 text: x10e6/ L Body Fluid Total Cell Count 100 x10E6 /L 02/22 12:36 AM CDT [facility] Not Available Not Available 02/21/2025 09:50:41 02/22/20 24 02/23/2024 Diffe renti al panel - Body fluid neutrophils/ leukocytes in body fluid by manual count 94 % Neutr ophil s Fluid Perce nt 94 % 02/22 12:36 AM CDT [facility] Not Available Not Available 02/21/2025 09:50:41 02/22/20 24 02/23/2024 Diffe renti al panel - Body fluid macrophages/ leukocytes in body fluid by manual count 6 % Macro phage s Fluid Perce nt 6 % 02/22 12:36 AM CDT [facility] Not Available Not Available 02/21/2025 09:50:41 02/22/20 24 02/23/2024 Diffe renti al panel - Body fluid Unknown Analyte No refere nce ranges establ ished for body fluid differ ential cell counts . The test result s must be integr ated into the clinic al contex t for interp retati on. No refer ence range s estab lishe d for body fluid diffe renti al cell count s. The test resul ts must be integ rated into the clini aly delroy xt for inter preta tion. Not Available Not Available 02/21/2025 09:50:41 02/22/20 24 02/23/2024 Cell count and Diffe renti al panel - Body fluid specimen source [identifier] of body fluid Synovi al Fluid Sourc e Synov ial 02/22 12:36 AM CDT [facility] Not Available Not Available 02/21/2025 09:50:41 04/21/02/23/2024 Cell count and Diffe renti al panel - Body fluid appearance of body fluid BLOODY Fluid Appea dina BLOOD Y 02/22 12:36 AM CDT [facility] Not Available Not Available 02/21/2025 09:50:41 02/22/20 24 02/23/2024 Cell count and Diffe renti al panel - Body fluid color of body fluid PINK Fluid Color PINK 02/22 12:36 AM CDT [facility] Not Available Not Available 02/21/2025 09:50:41 02/22/20 24 02/23/2024 Cell count and Diffe renti al panel - Body fluid nucleated cells [#/volume] in body fluid by manual count 4376 text: <=200 x10e6/ L high Total Nucle ated Cells Fluid 4,376 (H) <=200 x10E6 /L 02/22 12:36 AM [facility] Not Available Not Available 02/21/2025 09:50:41 02/22/20 24 02/23/2024 Cell count and Diffe renti al panel - Body fluid erythrocytes [#/volume] in body fluid by automated count text: refere nce range not establ ished x10e6/ L RBC Count Fluid <2,00 0 Refer ence Range Not Estab lishe d x10E6 /L 02/22 12:36 AM [facility] Not Available Not Available 02/21/2025 09:50:41 02/22/20 24 02/23/2024 Cell count and Diffe renti al panel - Body fluid Unknown Analyte No refere nce ranges establ ished for body fluid cell counts . Any refere nce ranges provid ed are derive d from publis hed litera ture. The test result s must be integr ated into the clinic al contex t for interp retati on. No refer ence range s estab lishe d for body fluid cell count s. Any refer ence range s provi ded are deriv ed from publi shed liter ature . The test resul ts must be integ rated into the clini aly delroy xt for inter preta tion. Not Available Not Available 02/21/2025 09:50:41 02/22/20 24 02/23/2024 Cell count and Diffe renti al panel - Body fluid interpretati on and review of laboratory results Abnorm al Not Available Not Available 09:50:41 02/22/20 24 02/26/2024 Neiss eria gonor rhoea e [Pres ence] in Speci men by Organ ism speci fic cultu re microorganis m identified in specimen by culture Negati ve for Neisse mima gonorr hoeae Cultu re Negat talia for Neiss eria gonor rhoea e CHARLES 02/25 8:36 AM CDT [facility] Not Available Not Available 02/21/2025 09:50:41 02/22/20 24 02/26/2024 Neiss eria gonor rhoea e [Pres ence] in Speci men by Organ ism speci fic cultu re interpretati on and review of laboratory results Normal Not Available Not Available 02/02 09:50:41 02/22/20 24 03/22/2024 Fungu s ident ified in [place] by Cultu re microorganis m identified in specimen by culture No fungus isolat ed Cultu re No fungu s isola christina CHARLES 03/22 7:13 AM CDT [facility] Not Available Not Available 02/21/2025 09:50:41 02/22/20 24 03/22/2024 Fungu s ident ified in [place] by Cultu re fungus identified in specimen by fungus stain No yeast or hyphae seen Fungu s Stain No yeast or hypha e seen 03/22 7:13 AM CDT [facility] Not Available Not Available 02/21/2025 09:50:41 02/22/20 24 03/22/2024 Fungu s ident ified in [place] by Cultu re interpretati on and review of laboratory results Normal Not Available Not Available 02/02 09:50:41 02/22/20 24 02/26/2024 Bacte mima ident ified in Body fluid by Cultu re microorganis m identified in specimen by culture No growth Cultu re No growt h CHARLES 02/25 5:53 AM CDT [facility] Not Available Not Available 02/21/2025 09:50:41 02/22/20 24 02/26/2024 Bacte mima ident ified in Body fluid by Cultu re microscopic observation [identifier] in specimen by gram stain No organi sms seen Gram Stain No organ isms seen 02/25 5:53 AM CDT [facility] Not Available Not Available 02/21/2025 09:50:41 02/22/20 24 02/26/2024 Bacte mima ident ified in Body fluid by Cultu re microscopic observation [identifier] in specimen by gram stain Heavy Polymo rphonu clear cells Gram Stain Heavy Polym orpho nucle ar cells 02/25 5:53 AM CDT [facility] Not Available Not Available 02/21/2025 09:50:41 02/22/20 24 02/26/2024 Bacte mima ident ified in Body fluid by Cultu re microscopic observation [identifier] in specimen by gram stain Modera te Red blood cells Gram Stain Moder ate Red blood cells 02/25 5:53 AM CDT [facility] Not Available Not Available 02/21/2025 09:50:41 02/22/20 24 02/26/2024 Bacte mima ident ified in Body fluid by Cultu re interpretati on and review of laboratory results Normal Not Available Not Available 02/02 09:50:41 02/22/20 24 02/29/2024 Bacte mima ident ified in [place] te by Anaer obe cultu re microorganis m identified in specimen by culture No anaero bic organi sms isolat ed Cultu re No anaer obic organ isms isola christina CHARLES 02/28 1:30 PM CDT [facility] Not Available Not Available 02/21/2025 09:50:41 02/22/20 24 [id number]|2025-03-19 23:09:00|2025-03-19 23:08:00|XMS_ITS|BKG DAEMON|External Medical Summaries|[id number]|" Encounter Summary Created on: March 19, 2025 Gay Canales : 1990 Sex: Female Author Organization [facility] Address [facility] [place] [address] Care Team Providers Care Bander And Cellophaner Machine Name Role Phone None, Provider Primary Care Provider Nia perera Encounter Details Date Type Department Care Team (Late st Contact Info) Description 01/22/2023 Telephone [facility] [address] [place] [address] Penny Gould, PT [address] [place] [id number] Social History Tobacco Use Types Packs/Day Years [...] documented as of this encounter Care Teams Bander And Cellophaner Machine Relationship Specialty Start Date End Date None, Provider, PCP - General 07/29/22 documented as of this encounter "
--- OUTSIDE RECORDS SUMMARY | 2025-03-19 23:09 | XMS_ITS | Clinical Summary ---
Author Organization [facility] [employer] Address [address] [place] [address] Care Team Providers Care Student Development Specialist Name Role Phone Cherise Patrick PA-C Primary Care Provider Source Comments [facility] [employer],non-owned Affiliates and Associated Physician Practices is amultiple site organization consisting of ambulatory clinics and hospital sitesin [place], [place], [place] and [place]. This disclosure is being madepursuant to the Care Everywhere program and may not contain all information available regarding this patient. Last updated 18.[employer] Allergies No known active allergies Medications * This document contains information received from the source organization and may not represent a complete record from that organization. * Be aware that medications may not be up to date on this document. Alwaysverify current medications with the patient. blood glucose (OneTouch Verio) test stripIndication s:Hyperglycemia USE ONE STRIP TO TEST BLOOD SUGAR FOUR TIMES DAILY 100 strip 3 Active Additional Information Patient not taking.Reason: Other (not checking sugar), Informant: Patient, Reported on 08/27/2024 Alcohol Swabs (Alcohol Prep) 70 % USE ONE SWAB TO CLEAN SKIN FOUR TIMES DAILY BEFORE TESTING 100 Each 3 Active Additional Information Patient not taking.Reason: Patient adjusted, Informant: Patient, Reported on 08/27/2024 Lancets (ONETOUCH DELICA PLUS 33G EXTRA FINE LANCET)Indicati ons:Hyperglycem ia USE ONE LANCET TO PRICK FINGER FOUR TIMES DAILY FOR BLOOD GLUCOSE TESTING 100 Each 3 Active Additional Information Patient not taking.Reason: Patient adjusted, Informant: Patient, Reported on 08/27/2024 Blood Glucose Monitoring Suppl (Lumenergi Verio Reflect) w/Device KITIndications: CALL AUSTYN WHEN DELIVERING X4364 Use 1 kit 4 times daily USE METER TO CHECK BLOOD GLUCOSE FOUR TIMES DAILY Reasons: CALL [facility]YN WHEN DELIVERING X4364 1 kit 3 Active Additional Information Patient not taking.Reason: Patient adjusted, Informant: Patient, Reported on 08/27/2024 sevelamer carbonate (Renvela) 800 MG Take 1 (one) tablet by mouth 3 times daily with meals 4 Active renal vitamin (Dialyvite) tablet Take 1 (one) tablet by mouth once daily 4 Active gabapentin (Neurontin) 300 MG capsule Take 1 (one) capsule by mouth every Friday, Friday & Friday 30 capsule 4 Active Gauze Pads & Dressings (Gauze Dressing) 4 X4 PADS Use 1 Pad every 2 days Apply to right shoulder, change dressing every 48 hours, sooner if needed. 24 Each 1 4 Active lisinopril (Prinivil; Zestril) 20 MG tabletIndicatio ns:Hypertension , unspecified type Take 1 (one) tablet by mouth once daily 30 tablet 4 Active oxyCODONE, immediate release, (Roxicodone) 10 MG tabletIndicatio ns:Acute Pain Take 1 (one) tablet by mouth every 4 hours as needed Reasons: Acute Pain 16 tablet 4 Active acetaminophen (Tylenol) 325 MG tablet Take 2 (two) tablets by mouth every 6 hours as needed for Fever, Pain or Headache Maximum allowable Acetaminophen amount = 4 Grams (4000 mg) / 24 hours. 4 Active apixaban (Eliquis) 5 MG tablet Take 1 (one) tablet by mouth 2 times daily for 30 days 60 tablet 09/01/2024 1:19 PM CDT 4 Active carvedilol (Coreg) 25 MG tablet Take 1 (one) tablet by mouth 2 times daily with morning and evening meal for 30 days 60 tablet 09/01/2024 1:19 PM CDT 4 Active amLODIPine (Norvasc) 10 MG tablet Take 1 (one) tablet by mouth once daily for 30 days 30 tablet 4 Active furosemide (Lasix) 40 MG tablet Take 1 (one) tablet by mouth every Friday, , & Friday for 30 days 12 tablet 09/01/2024 1:19 PM CDT 4 Active Active Problems Problem Noted Date Diagnosed [...] mellitus with diabetic polyneuro maryanne 04/23/2010 Encounters * This document contains information received from the source organization and may not represent a complete record from that organization. Date Type Department Care Team Description 03/18/2025 12:05 PM CDT - 03/18/2025 4:25 PM CDT Hospital Encounter [facility] OP [address] [place] [address] Artie Harmon MD [facility] Rad[facility] Discharge Disposition: Home or Self Care 03/16/2025 Orders Only [facility] IVR [address] [place] [address] Artie Harmon MD ESRD (end stage renal disease) (HCC) from Last 3 Months Immunizations Immunization Administration Dates Next Due DTP, HISTORIC VACCINE [...] Date Recorded PHQ2 TOTAL SCORE 0 06/10/2023 [facility] [...] a group home (including now)? 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[employer] Gender Identity Not on file Sexual Orientation [...] Mass Index 41.54 03/18/2025 12:29 PM CDT Plan of Treatment Health Maintenance Due Date Last Done Comments MEDICARE AWV 12 MONTHS 1992 PAP SMEAR 1990 HEPATITIS B VACCINE (1 of 1 - Risk Dialysis 4-dose series) 03/06/1995 03/06/1994, 07/27/1993, 06/01/1993 HPV VACCINE (3 - 3-dose series) 10/25/2008 06/24/2008, 04/25/2008 PNEUMOCOCCAL VACCINE (1 of 2 - PCV) 2011 DIABETES-FOOT EXAM WITH MONOFILAMENT 12/03/2022 COVID-19 VACCINE ( - season) 2024 DEPRESSION SCREENING 11/03/2024 06/10/2023, 06/10/2023, 04/24/2023 DIABETES-HGB A1C 02/26/2025 08/28/2024, , 02/23/2024, Additional history exists INFLUENZA VACCINE (Season Ended) 2025 DIABETES RETINOPATHY SCREENING 02/24/2026 02/24/2025, 11/01/2024 DTAP/TDAP/TD VACCINES (7 - Td or [...] this topic Medical Devices Implanted Type Area Campus Recruiting Intern Device Identifier Shelf Expiration Date Model / Serial / Lot Kit Durathane Drflw Embosafe Chrnc Dlys Implanted:Qty: 1 on 02/25/2024 by Artie Harmon MD at [facility] Right: Chest [employer] 07/03/2026 [id number] / / [id number] Description:IMPLANTED BY DR. JUAN Gill Durathane Drflw Embosafe Chrnc Dlys Implanted:Qty: 1 on 08/06/2024 by Artie Harmon MD at [facility] Left: Chest Wall [employer] 07/03/2026 [id number] / / [id number] Description:Implanted in the left chest wall, via the [facility], by Dr. Candy Harmon. Jairo Durathane Drflw Embosafe Chrnc Dlys Implanted:Qty: 1 on 03/18/2025 by Rio Monk MD at [facility] [employer] 12/03/2026 [id number] / / [id number] Procedures Procedure Name Priority Date/Time Associated Diagnosis Comments HCG BETA BLOOD QUANTITATIVE STAT 03/18/2025 1:38 PM CDT Pre-op evaluation HEMOGLOBIN A1C Routine 08/28/2024 8:29 PM CDT HEPATITIS C AB SCREEN RFLX NAAT QUANT Routine 05/31/2024 6:38 PM CDT HIV-1 HIV-2 ANTIBODY + HIV P24 AG PANEL STAT 02/24/2024 8:57 AM CDT from Last 3 Months or Most Recently Relevant to Health Maintenance Results * HCG BETA BLOOD QUANTITATIVE (03/18/2025 1:38 PM CDT) Pathologist [facility] Beta-hCG Total Quantitative <3 mIU/mL 03/18/2025 2:38 PM CDT [facility] Comment: HCG Numeric Result Interpretation: [...] MD LAB - CHEMISTRY ORDERABLES Final Result [facility] [address] [place] [phone], [facility] [phone] * (ABNORMAL) HEMOGLOBIN A1C (08/28/2024 8:29 PM CDT) Pathologist [facility] Hemoglobin A1c 7.4(H) <=5.6 % 08/29/2024 8:36 AM CDT [facility] Estimated Average Glucose 166 mg/dL 08/29/2024 8:36 AM CDT [facility] Comment: HbA1c Interpretation: Normal : < 5.7% Pre-diabetes: 5.7-6.4% Diabetes: Equal to or greater than 6.5% Test results diagnostic of diabetes should be repeated for confirmation. Treatment target values recommended by ADA and other clinical organizations should be used to evaluate metabolic control in patients. Reference: [place] Diabetes Association, Standards of Care in Diabetes -2020 In patients 70 years and older consider HbA1c target range of 7.0-7.5% (Reference: Anthony Dillard et al. JAMDA. 2012) The Sebia assay for the measurement of HbA1c is a National Glycohemoglobin Standardization Program (NGSP) certified method. Blood BLOOD SPECIMEN / Unknown Lab Venipuncture / Unknown 08/28/2024 8:29 PM CDT 08/28/2024 9:24 PM CDT us Noe Rabago MD LAB - CHEMISTRY ORDERABLES Fin al Result Performing Organization Address [facility] de Phone Number [address] [address], [facility] [phone] * HEPATITIS C AB SCREEN RFLX NAAT QUANT (05/31/2024 6:38 PM CDT) Hepatitis C Antibody Non-react talia Non-reac tive 05/31/2024 7:33 PM CDT [facility] Comment:Hepatitis C Antibody screen indicates [...] 6:38 PM CDT 05/31/2024 6:41 PM CDT us Hunter Chin III, MD LAB - CHEMISTRY ORDERAB LES Final Result Performing Organization Address [facility] Co de Phone Number [address] [address], [facility] [phone] * HIV-1 HIV-2 ANTIBODY + HIV P24 AG PANEL (02/24/2024 8:57 AM CDT) HIV Antigen/Antibod y 1 & 2 Non-reacti ve Non-react talia 02/24/2024 10:03 AM CDT [facility] Comment:No Laboratory eviden ce of HIV infection. 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
--- OUTSIDE RECORDS SUMMARY | 2025-03-19 23:09 | XMS_ITS | Patient Health Record ---
Author Organization [facility] Address [address] [place] [address] Care Team Providers Care Resident Manager Name Role Phone Yessi Shannon Primary Care Provider [phone] Reason For Referral No Information Social History Sex Assigned At : Social History Observation Description Sex Assigned At Female Encounters Encounter Location Date Provider Diagnosis [address] [place] [address] 01/26/2025 Yessi Shannon Plan Of Treatment No Information Insurance Providers Payer Name Payer Address Payer Phone Subscriber Number Group Number Insured Name Patient Relationship to Insured Coverage Start Date Coverage End Date [employer] [address] [place] [address] [id number] Gay Canales Self - patient is the insured 5 [employer] [address] [place] [address] [id number] Gay Canales Self - patient is the insured 5
--- OUTSIDE RECORDS SUMMARY | 2025-03-19 23:09 | XMS_ITS | Clinical Summary ---
Author Organization [facility] Address [address] [place] [address] Care Team Providers Care Security Director Name Role Phone None, Provider MD Primary [...] Morbid obesity 07/31/2022 Acute hypoxemic respiratory failure ([facility]) 07/29/2022 Social History Tobacco Use Types Packs/Day [...] C 2010 COVID-19 Vaccine ( season) 2024 Cervical Cancer Screening Pap Smear (Age [...] 06/01/1993 Meningococcal Vaccine Aged Out 04/25/2008 No amrnie shavon eligible based on patient's age to complete this topic Meningococcal B Vaccine Aged Out No l onger eligible based on patient's age to complete this topic Pneumococcal Vaccine: Pediatrics (0 to 5 Years) and At-Risk Patients (6 to 49 Years) Aged Out No longer eligible based [...] 03/03/23 +MRSA Right leg 07/30/2022 03/03/2023 Insurance [facility] Fixed - Parking Tickets [address] C/O PROVIDER SERVICES TOÑITO RAMIREZ [id number] [place] Advance Directives * Full Code (Latest Code Status on File) Date Activated Date Inactivated Comments 07/31/2022 11:49 PM 08/07/2022 11:08 PM * Full Code Date Activated Date Inactivated Comments 07/29/2022 9:44 PM 07/31/2022 11:49 PM Care Teams Security Director Relationship Specialty Start Date End Date None, Provider, PCP - General 07/29/22
--- OUTSIDE RECORDS SUMMARY | 2025-03-19 23:10 | XMS_ITS ---
Author Organization [facility] Address [address] [place] [address] Care Team Providers Care Tailing Hand Name Role Phone Yessi Shannon Primary Care Provider REASON FOR VISIT New Patient Psych Eval, follow up hospital per CI Social History Sex Assigned At : Social History Observation Description Sex Assigned At Female Encounters Encounter Location Date Provider Diagnosis [address] [place] [address] 01/26/2025 Yessi Shannon Plan Of Treatment No Information Progress Notes * Gay MATADOB:1990 (34 yo F)Acc No.[id number]:01/26/2025 UNLOCKED PROGRESS NOTE Patient: Gay FARRIS Provider: OZ Caldwell, PUPPET ENGINEER, CORNER BEAD OPERATOR-C :1990 A ge:34 Y S ex:Female Date:01/26/2025 Address[address] [id number] Subjective: * Chief Complaints: * 1 . New Patient Psych Eval, follow up hospital per CI. * Medical History: Objective: * Vitals: Assessment: Plan: * Treatment: * * Electronic signature of Jeremías Shannon , [id number] on 03/19/2025 at 11:09 PM CDT Sign off status: Pending * Provider: OZ Caldwell, PUPPET ENGINEER, CORNER BEAD OPERATOR-C Date: 0 01/26/2025 Generated for Roldan knight/Teresa/Rodgersmitting on: 0 03/19/2025 11:09 PM CDT
[2025-03-19 23:13] VITALS: BP 166/86; PULSE 101; RESP 16; TEMP 36.6; O2SAT 100
--- OUTSIDE RECORDS SUMMARY | 2025-03-20 00:19 | XMS_ITS | Encounter Summary ---
Author Organization [facility] Address [address] [place] [address] Care Team Providers Care Network Support Name Role Phone Cherise Patrick PA-C Primary Care Provider Reason for Visit * Reason Onset Date Comments Hospital Admission 04/24/2023 Encounter Details Date Type Department Care Team (Late st Contact Info) Description 04/24/2023 Telephone [facility] STANDARD [address] [place] [address] Sameer Navarro MD [facility] [address] Hospital Admission Social History Tobacco [...] and heating? Not hard at all 04/28/2023 [facility] [place] [facility] Occupat ional Health - Occupational Stress [...] in a correction (including now)? 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 Patient needs on arrival to [facility]: Medicine admissions resident (ask bread oven operator for Medicine Admission) to be notified of arrival. Consultation to (N/A if blank): Vascular/general surgery I have accepted this patient for transfer to [facility]. If patient awaiting bed for [...] documented as of this encounter Care Teams Network Support Relationship Specialty Start Date End Date Cherise Patrick PA-C [address] [place] [phone] PCP - General 02/23/24 documented as of this encounter
--- OUTSIDE RECORDS SUMMARY | 2025-03-20 00:19 | XMS_ITS | Clinical Summary ---
Author Organization [facility] [employer] Address [address] [place] [address] Care Team Providers Care Medical Sales Representative Name Role Phone Cherise Patrick PA-C Primary Care Provider [phone] Source Comments [facility] [employer],non-owned Affiliates and Associated Physician Practices is amultiple site organization consisting of ambulatory clinics and hospital sitesin [place], [place], [place] and [place]. This disclosure is being madepursuant to the Care Everywhere program and may not contain all information available regarding this patient. Last updated 18.[employer] Allergies No known active allergies Medications * [...] Reported on 08/27/2024 Blood Glucose Monitoring Suppl (flck.me Verio Reflect) w/Device KITIndications: CALL [facility]YN WHEN [...] - 03/18/2025 4:25 PM CDT Hospital Encounter [facility] OP [address] [place] [address] Artie Harmon MD [facility] Radiology Discharge Disposition: Home or Self Care 03/16/2025 Orders Only [facility] IVR [address] [place] [address] Artie Harmon MD ESRD (end stage renal [...] Date Recorded PHQ2 TOTAL SCORE 0 06/10/2023 [facility] [...] on file 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 Right: Chest [employer] 07/03/2026 [id number] / / [id number] Description:IMPLANTED BY DR. JUAN Gill Durathane Drflw Embosafe Chrnc Dlys Implanted:Qty: 1 on 08/06/2024 by Artie Harmon MD at [facility] Left: Chest Wall [employer] 07/03/2026 [id number] / / [id number] Description:Implanted in the left chest wall, via the [facility], by Dr. Candy Harmon. Jairo Durathane Drflw Embosafe Chrnc Dlys Implanted:Qty: 1 on 03/18/2025 by Rio Monk MD at [facility] [employer] 12/03/2026 [id number] / / [id number] Procedures Procedure Name Priority Date/Time Associated Diagnosis [...] BLOOD QUANTITATIVE (03/18/2025 1:38 PM CDT) Pathologist [facility] Beta-hCG Total Quantitative <3 mIU/mL 03/18/2025 2:38 PM CDT [facility] Comment: HCG Numeric Result Interpretation: Non- Females: [...] MD LAB - CHEMISTRY ORDERABLES Final Result [facility] [address] [place] [phone], [facility] [phone] * (ABNORMAL) HEMOGLOBIN A1C (08/28/2024 8:29 PM CDT) Pathologist [facility] Hemoglobin A1c 7.4(H) <=5.6 % 08/29/2024 8:36 AM CDT [facility] Estimated Average Glucose 166 mg/dL 08/29/2024 8:36 AM CDT [facility] Comment: HbA1c Interpretation: Normal : < 5.7% Pre-diabetes: 5.7-6.4% Diabetes: Equal to or greater than 6.5% Test results diagnostic of diabetes should be repeated for confirmation. Treatment target values recommended by ADA and other clinical organizations should be used to evaluate metabolic control in patients. Reference: [place] Diabetes Association, Standards of Care in Diabetes [...] ORDERABLES Fin al Result Performing Organization Address [facility] de Phone Number [address] [address], [facility] [phone] * HEPATITIS C AB SCREEN RFLX NAAT QUANT (05/31/2024 6:38 PM CDT) Hepatitis C Antibody Non-react talia Non-reac tive 05/31/2024 7:33 PM CDT [facility] Comment:Hepatitis C Antibody screen indicates [...] PM CDT 05/31/2024 6:41 PM CDT us uHnter Chin III, MD LAB - CHEMISTRY ORDERAB LES Final Result Performing Organization Address [facility] Co de Phone Number [address] [address], [facility] [phone] * HIV-1 HIV-2 ANTIBODY + HIV P24 AG PANEL (02/24/2024 8:57 AM CDT) HIV Antigen/Antibod y 1 & 2 Non-reacti ve Non-react talia 02/24/2024 10:03 AM CDT [facility] Comment:No Laboratory eviden ce of HIV infection. Blood BLOOD SPECIMEN / Unknown Lab Venipuncture / Unknown 02/24/2024 8:57 AM CDT 02/24/2024 9:00 AM CDT us Rafa Patel MD LAB - CHEMISTRY ORDERABLES Final Result [facility] [address] [place] [address], [facility] [phone] from Last 3 Months or Most Recently [...] 2:41 AM 05/23/2023 7:59 PM Care Teams Medical Sales Representative Relationship Specialty Start Date End Date Cherise Patrick PA-C [address] [place] [phone] PCP - General 02/23/24
--- OUTSIDE RECORDS SUMMARY | 2025-03-20 00:20 | XMS_ITS | Clinical Summary ---
Author Organization [facility] Address [address] [place] [address] Care Team Providers Care Electromechanisms Design Drafter Name Role Phone Chreise Patrick Primary Care Provider [phone] Allergies No known active allergies Medications furosemide (LASIX) 40 mg tabletIndicati ons:hypertensi on Take 1 tablet (40 mg total) by mouth tubing drier before breakfast Active carvediloL (COREG) 12.5 mg tabletIndicati ons:hypertensi on Take 1 tablet (12.5 mg total) by mouth 2 (two) times a day with meals Active amLODIPine (NORVASC) 10 mg tabletIndicati ons:hypertensi on Take 1 tablet (10 mg total) by mouth tubing drier before breakfast Active dulaglutide (TRULICITY) 0.75 mg/0.5 [...] 1 tablet (20 mg total) by mouth tubing drier before breakfast Active gabapentin (NEURONTIN) 300 mg capsuleIndicat ions:Neuropath ic Pain Take 1 capsule (300 mg total) by mouth 3 (three) times a week MWF Active Slynd tablet tablet 5 Active LANTUS 100 unit/mL (3 mL) pen for injection 5 Active OneTouch Delica Plus Lancet 33 gauge misc 5 Active metroNIDAZOLE (FLAGYL) 500 mg tablet 5 Active prednisoLONE acetate (PRED FORTE) 1 % ophthalmic suspension Administer 1 drop into the right eye 3 (three) times a day 5 mL 3 5 Active moxifloxacin (VIGAMOX) 0.5 % ophthalmic solution Administer 1 drop into the right eye 3 (three) times a day 3 mL 2 5 Active timoloL (BETIMOL) 0.5 % ophthalmic solution Administer 1 drop into the right eye 2 (two) times a day 5 mL 3 5 026 Active brinzolamide-b rimonidine (Simbrinza) 0.2-1 % drops,suspensi on Administer 1 drop into the right eye 3 (three) times a day 8 mL 3 5 Active latanoprost (XALATAN) 0.005 % ophthalmic solution Administer 1 drop into the right eye nightly 2.5 mL 11 5 Active ferrous sulfate 325 mg (65 mg of elemental iron) tablet Take 1 tablet (325 mg total) by mouth Active insulin lispro (HumaLOG, ADMELOG) 100 unit/mL vial for injection INJECT 5 UNITS SUBCUTANEOUSLY WITH MEALS Active nystatin powder APPLY TOPICALLY THREE TIMES DAILY 3 Active sevelamer (RENVELA) 800 mg tablet Take 1 tablet (800 mg total) by mouth 4 Active Active Problems Problem Noted Date [...] eye. 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 [address] [phone] Luis Rodriguez MD Traction detachment of both retinas (Primary Dx); Neovascular glaucoma of right eye, severe stage 02/21/2025 11:00 AM CDT Office Visit [facility] [address] [place] [phone] Sumi Gupta MD Neovascular glaucoma of right eye, severe stage (Primary Dx) 02/18/2025 3:45 PM CDT Office Visit [facility] [address] [place] [phone] Bita Vega MD Pseudophakia, right eye (Primary Dx); Neovascular glaucoma of right eye, indeterminate stage; Traction detachment of both retinas 01/25/2025 9:15 AM CDT Office Visit [facility] [address], [address] [place] [phone] Bita Vega MD Pseudophakia, right eye (Primary Dx); Traction detachment of both retinas 01/12/2025 Telephone [facility] [address] [place] [phone] Nancie Hoyos MD 01/11/2025 9:15 AM CDT Office Visit [facility] [address], [address] [place] [phone] Bita Vega MD Pseudophakia, right eye (Primary Dx) 01/10/2025 11:39 AM CDT Anesthesia Event [facility] [address] [place] [address] Carla Neri MD Mallette, Allison Anne, NP 01/10/2025 10:30 AM CDT - 01/10/2025 11:15 AM CDT Surgery [facility] [address] [place] [address] Bita Vega MD COMPLEX EXTRACTION CATARACT - PHACOEMULSIFICATION AND LENS IMPLANT 01/10/2025 8:34 AM CDT - 01/10/2025 12:39 PM CDT Hospital Encounter [facility] [address] [place] [id number] Bita Vega MD 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 Outpatient Health [address] [place] [phone] Bita Vega MD Med Refill; Rx change [...] How often do you attend religious or catholic serv ices? Never 04/16/2023 Do you belong [...] in a group home (including now)? No 04/16/2023 Housing Stability [...] on file Legal Sex Female 8:53 PM SHEEP SHEARER Gender Identity Female 12/23/2024 9:35 AM SHEEP SHEARER Sexual Orientation Straight 12/23/2024 9: 35 AM SHEEP SHEARER Obstetrics History Last Filed Vital Signs Vital [...] cm (5' 7 ) 12/23/2024 9:15 AM SHEEP SHEARER Body Mass Index 38.84 12/23/2024 9:15 AM SHEEP SHEARER Plan of Treatment Health Maintenance Due Date [...] 04/25/2008, 08/13/2007 Medical Devices Implanted Type Area Peanut Farmer Device Identifier Shelf Expiration Date Model / Serial / Lot [employer] Lens Iol [id number] Clareon Uva Autonom Cca0t0.225 - [id number] - [id number] Implanted:Qty: 1 on 01/10/2025 by Bita Vega MD at [facility] Advanced [facility] Lens Right: Eye [employer] 06/14/2026 [id number] / [id number] Procedures Procedure Name Priority Date/Time Associated Diagnosis Comments B-SCAN ULTRASOUND 74688 - OD - RIGHT EYE Routine 02/24/2025 [...] URINE Routine 01/10/2025 9:30 AM CDT POCT SD-A-YPI-GLU-HCT,WB - ISTAT Routine 01/10/2025 9:28 AM CDT EGFR Routine 09/23/2023 5:39 PM SHEEP SHEARER ALBUMIN CREATININE RATIO, URINE Routine 04/17/2023 4:23 PM CDT LIPID PANEL Routine 04/17/2023 1:03 PM CDT HEMOGLOBIN A1C Routine 04/16/2023 7:06 AM CDT from Last 3 Months or Most Recently Relevant to Health Maintenance Results * B-SCAN ULTRASOUND 33206 - OD - RIGHT EYE (02/24/2025 12:45 [...] and after No leak Iop 55--> 22 Result Rosie Vega MD [facility] PROCEDURES Fin al Result * (ABNORMAL) POCT glucose (01/10/2025 12:14 PM CDT) Glucose, POC 249(H) 70 - 199 mg/dL Blood 01/10/2025 12:1 4 PM CDT 01/10/2025 12:14 PM CDT Result Rosie Vega MD LAB POCT ORDERABLES - DEVIC E Final Result Performing Organization Address [facility] Co de Phone Number [facility] Department [place] [address] * (ABNORMAL) POCT glucose (01/10/2025 11:22 AM CDT) Glucose, POC 334(H) 70 - 199 mg/dL Blood 01/10/2025 11:2 2 AM CDT 01/10/2025 11:22 AM CDT Result Rosie Vega MD LAB POCT ORDERABLES - DEVIC E Final Result Performing Organization Address City/[facility] Co de Phone Number [facility] [place] [address] * (ABNORMAL) POCT glucose (01/10/2025 10:34 AM CDT) Glucose, POC 377(H) 70 - 199 mg/dL Blood 01/10/2025 10:3 4 AM CDT 01/10/2025 10:34 AM CDT Result Rosie Vega MD LAB POCT ORDERABLES - DEVIC E Final Result [facility] Department [place] [address] * POCT hCG, urine (01/10/2025 9:30 AM CDT) Pathologist [facility] HCG, ur, POC Negative Negative Lot Number [id number] QC Backgroud Clear Acceptable QC Control Line Acceptable Urine 01/10/2025 9:30 AM CDT us Carla Neri MD POINT OF CARE TEST ORDERA BLES Final Result * (ABNORMAL) POCT GA-R-ZFK-GLU-HCT, WB - ISTAT (01/10/2025 9:28 AM CDT) [facility] Na POC 132(L) 135 - 145 mmol/L K POC 4.4 3.3 - 4.9 mmol/L [facility] Comment: Interpretive Data This method is not able to assess for hemolysis, which may falsely increase potassium concentrations. If further testing is needed to evaluate this result, consider in-laboratory plasma potassium. Current Interpretive Data was last revised on 2022. Glucose POC i-STAT 438(H) 70 - 199 mg/dL [facility] Hct, POC 39.0 35.6 - 45.5 % [facility] Blood 01/10/2025 9:28 AM CDT 01/10/2025 9:28 AM CDT Bita Vega MD LAB POCT ORDERABLES - DEVIC E Final Result Performing Organization Address City/[facility]/ZIP Co de Phone Number [facility] Department [place] [address] * eGFR (09/23/2023 5:39 PM SHEEP SHEARER) [facility] eGFR 22 mL/min/1. 73 m2 [facility] Comment: Interpretive Data Reference Interval Normal >/= [...] last reviewed 2021. Blood 09/23/2023 5:39 PM SHEEP SHEARER 09/23/2023 8:31 PM SHEEP SHEARER us Tyrel Simmons MD LAB BLOOD ORDERABLES Final Result Performing Organization Address City/[facility]/ZIP Co de Phone Number [facility] [address] Department [place] [address] * (ABNORMAL) Albumin Creatinine Ratio, Urine (04/17/2023 [...] LAB URINE ORDERABLES Final Re sult [facility] [address] [facility] [place] [address] * (ABNORMAL) Lipid panel (04/17/2023 1:03 PM [...] Pediatrics 2011;128:S213 2. NCEP Expert Panel. Circulation 2003;110:227 Current Interpretive Data was last revised on [...] LAB BLOOD ORDERABLES Final Re sult [facility] [address] [facility] [place] [address] * (ABNORMAL) Hemoglobin A1c (04/16/2023 7:06 AM CDT) Hgb A1C 6.5(H) 4.0 - 5.6 % [facility] Estimated Average Glucose 140 mg/dL [facility] Comment: The ADA recommends reporting an estimated Average Glucose (eAG) with all Hemoglobin A1c results using the equation derived from a study of 507 normal and diabetic adults. Minority populations were underrepresented and children were not included. (Diabetes Care 31:4667-4131, 2008). The eAG is not equivalent to a fasting glucose. Blood 04/16/2023 7:06 AM CDT 04/16/2023 7:45 AM CDT us Amilcar Estrada MD LAB BLOOD ORDERABLES Final Re sult [facility] [address] [facility] [place] [address] from Last 3 Months or Most Recently Relevant to Health Maintenance Insurance [facility] OTHER Address: [address] [address] [facility] MEDICARE [facility] Address: [address] [address] [place] [id number]|2025-03-20 01:50:00|2025-03-20 01:50:00|ED_ITS|HWANGV|Health Information Management|[id number]|"HPI - Recheck/Abnormal Lab/Rx General Chief Complaint: Recheck/Abnormal Lab/Rx Stated Complaint: Dialysis port placed yesterday- dressing not on Time Seen by Provider: 03/19/25 23:42 History of Present Illness HPI narrative: Patient just had dialysis port placed yesterday at [facility], and woke up noticing that the dressing was half off, and she is having some slight swelling and pain there. Related Data Home Medications Medication Instructions Recorded Confirmed Last Taken Type amlodipine 10 mg tablet 10 mg PO DAILY 08/04/23 01/14/25 11/09/24 History carvedilol 12.5 mg tablet 25 mg PO Q12H 08/04/23 01/14/25 01/13/25 History bisacodyl 10 mg rectal suppository 10 mg RECTAL DAILY PRN Constipation 02/16/24 01/14/25 Unknown History tramadol 50 mg tablet 50 mg PO Q6H PRN Moderate Pain 02/16/24 01/14/25 11/06/24 History (Scale Score 5-6) acetaminophen 500 mg tablet 500 mg PO Q6H PRN Pain, Mild 05/16/24 01/14/25 01/13/25 History diphenhydramine HCl 25 mg capsule 25 mg PO Q8H PRN Itching 05/16/24 01/14/25 11/09/24 History furosemide 40 mg tablet 40 mg PO DAILY 05/16/24 01/14/25 01/13/25 History apixaban 5 mg tablet (Eliquis) 5 mg PO BID 11/10/24 01/14/25 01/13/25 History drospirenone (contraceptive) 4 mg 4 mg PO DAILY 11/10/24 01/14/25 01/13/25 History (28) tablet (Slynd) dulaglutide 1.5 mg/0.5 mL 1.5 mg subcut WEEKLY 01/14/25 01/14/25 Unknown History subcutaneous pen injector (Trulicity) ketorolac 0.5 % eye drops 1 drp RIGHT EYE Q6H 01/14/25 01/14/25 01/13/25 History ofloxacin 0.3 % eye drops 1 drp RIGHT EYE Q6H 01/14/25 01/14/25 01/13/25 History prednisolone acetate 1 % eye 1 drp RIGHT EYE Q6H 01/14/25 01/14/25 01/13/25 History drops,suspension Allergies Allergy/AdvReac Type Severity Reaction Status Date / Time hydrocodone Allergy Mild Hives Verified 01/14/25 08:27 oxycodone Allergy Mild Hives Verified 01/14/25 08:27 Review of Systems 2 Review of Systems: All systems reviewed & are unremarkable except as noted in HPI and below PMFSH Past Medical History Medical History Septic arthritis of shoulder, left (05/2024) Diastolic heart failure secondary to hypertension EF 70% with grade 2 diastolic dysfunction echocardiogram August 2023 Anemia in chronic kidney disease End-stage renal disease on hemodialysis Hemodialysis initiated August 2023 Glaucoma Blind in both eyes (~03/2023) Occurred acutely March 2023 Nephrotic syndrome Diabetic neuropathy Hyperlipidemia Obstructive sleep apnea Patient has not had a formal polysomnogram but had positive ApneaLink August 2023 Diabetic nephropathy with proteinuria Nephrotic range Chronic heel ulcer Chronic heel ulcer on the left foot developed November 2022 with acute decompensation and subsequent above the knee amputation, no unfortunately do developed a right heel ulcer the fall of 2022 that is been persistent CHF (congestive heart failure) Hypertension Diabetes mellitus Surgical History Surgical History Status post cataract extraction and insertion of intraocular lens of right eye Status post insertion of dialysis catheter (08/2023) Right subclavian History of left below knee amputation (~12/2022) Due to osteomyelitis Family History Family History Father Diabetes mellitus Hypertension Mother Hypertension Obesity Sibling Diabetes mellitus, Onset Age: 28 Sibling Unknown family medical history Does not see a doctor Diabetes mellitus Social History Social History Social History: The patient reports that 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 Since August 2022 she moved in with her sister. She has had a severe significant decline in her health and December 2022had left above the knee amputation. She has been in out of retirement and rehab facilities since that time. She is a lifelong nonsmoker. She used to rarely smoke marijuana. She had no significant alcohol use history. She does not have any children. Code status: DNR/DNI (per patient request) evidently during prior hospitalization when the patient became unresponsive family change the patient's code status back to (08/13/2023) full code. Surrogate decision maker: Nikkoedith Nunez (sister) Smoking status: Never smoker Additional smoking assessment comments: never smoked cigarettes Alcohol intake: never Drinks per week: 0 Substance use: former Substance use type: does not use Do You Feel Safe in your Home?: Yes Lack of Transportation: No Lack of Food: Never True Current Housing: I Have Housing Concerned About Future Housing: No Difficulty Paying Gas/Electric Bills: No Difficulty Paying for Meds: No Currently Unemployed: No Education: Grade School Difficulty w/ Childcare or Family Care: No Spiritual care concerns: No Exam 2 Narrative: EXAMINATION OF ORGAN SYSTEMS/BODY AREAS: Constitutional: Vital signs per nursing GENERAL:[No acute distress, non-toxic appearing.] HEAD: Normal with no signs of head trauma. EYES: EOMI, conjunctiva normal ENT: Hearing grossly intact LUNGS: Nonlabored breathing. HEART: [Regular rate and rhythm] ABD: [Soft], [nontender to palpation] EXT: BKA SKIN: Central line dressing half off of port site, however the area is clean and dry, without any signs of erythema or drainage, there is some slight swelling/bulge under the skin where I can feel the cath NEURO: [Alert and oriented x 3. No gross focal sensory or strength deficits.] PSYCH: Normal affect Course Vital Signs Vital signs: Vital Signs Temperature 97.8 F 03/19/25 23:13 Pulse Rate 101 H 03/19/25 23:13 Respiratory Rate 16 03/19/25 23:13 Blood Pressure 166/86 H 03/19/25 23:13 Pulse Oximetry 100 03/19/25 23:13 Oxygen Delivery Room Air 03/19/25 23:13 Temperature 97.8 F 03/19/25 23:13 Pulse Rate 101 H 03/19/25 23:13 Respiratory Rate 16 03/19/25 23:13 Blood Pressure 148/79 H 03/20/25 01:01 Pulse Oximetry 100 03/20/25 01:01 Oxygen Delivery Room Air 03/19/25 23:13 Procedures EJ/Peripheral Line Arm R: EJ/Peripheral Line Date: 03/20/25 EJ/Peripheral Line Time: 00:05 Skin Cleansed in Sterile Fashion: Yes Ultrasound Guided: Yes Size (gauge): 20 IV Secured and Dressing Applied: Yes Patient Tolerated Procedure: well and no complications MDM - Recheck/Abnormal Lab/Rx MDM Narrative Medical decision making narrative: Patient presents with concern for left chest PermCath malfunction, on exam there is no obvious signs of infection, no redness or induration, though there is some bulge under the skin where the catheter is, chest x-ray my independent interpretation does seem to show the catheter to be in place, labs obtained by myself and ultrasound IV placed by myself. D/w [facility] nephro resident Dr Maguire (per her discharge papers, to contact them for any issues); he states that she can follow up with the team on Friday. Discussed with patient who is comfortable with this plan. Her labs within acceptable limits here other than her blood sugar which is quite elevated, and she is given 2 doses of insulin with improvement to her blood sugar. I have let her know if anything changes she should go straight to the [facility] emergency room. Patient agreeable to this plan. Lab Data 03/20/25 00:36 03/20/25 00:36 Labs: Lab Results 03/20/25 03/20/25 03/20/25 Range/Units 00:36 00:49 01:45 WBC 11.7 H (4.5-10.0) K/mm3 RBC 3.80 L (4.2-5.4) M/mm3 Hgb 10.6 L (12.0-15.0) g/dL Hct 36.3 L (37.0-47.0) % MCV 95.5 (80-100) fl MCH 27.9 (26-34) pg MCHC 29.2 L (32-36) g/dl RDW 13.9 (11.5-14.5) % Plt Count 405 H (150-375) k/mm3 MPV 10.0 (7.4-10.4) fl Immature Gran % (Auto) 0.8 H (0-0.5) % Neut % (Auto) 73.0 (45.5-73.1) % Lymph % (Auto) 14.4 L (18.3-44.2) % [place] % (Auto) 5.5 (2.6-8.5) % Eos % (Auto) 6.0 H (0-4.4) % Baso % (Auto) 0.3 (0.2-1.2) % Lymph # (Auto) 1.69 (0.9-3.2) K/mm3 [place] # (Auto) 0.6 (0.1-0.6) K/mm3 Eos # (Auto) 0.7 H (0-0.3) K/mm3 Baso # (Auto) 0.0 (0.0-0.1) K/mm3 Abs Immat Gran (auto) 0.09 H (0.00-0.031) K/mm3 Absolute Neuts (auto) 8.6 H (1.3-6.7) K/mm3 Absolute Nucleated RBC 0.000 (0.0-0.012) K/mm3 Nucleated RBC % 0.0 (0.0-0.2) % PT 13.7 (11.1-14.7) Seconds INR 1.0 APTT 28.7 (22.3-36.8) Seconds Sodium 132 L (137-145) mmol/L Potassium 3.8 (3.4-5.0) mmol/L Chloride 103 (98-107) mmol/L Carbon Dioxide 19 L (22-30) mmol/L Anion Gap 10 (4-12) mmol/L BUN 16 D (7-17) mg/dL Creatinine 4.47 H (0.7-1.0) mg/dL Estim Creat Clear Calc Not Reportable Estimated GFR 11 L (59 - ) Glucose 674 H* (65-110) mg/dL POC Capillary Glucose > 500 H* (65-105) mg/dl Lactic Acid 1.5 (0.7-2.0) mmol/L Calcium 7.9 L (8.4-10.2) mg/dL Total Bilirubin 0.2 (0.2-1.3) mg/dL AST 19 (14-36) U/L ALT 14 (6-35) U/L Alkaline Phosphatase 283 H (38-126) U/L C-Reactive Protein 1.7 H (<1.0) mg/dL Total Protein 7.0 (6.3-8.2) g/dL Albumin 3.2 L (3.5-5.1) g/dL 03/20/25 03/20/25 Range/Units 02:28 03:30 WBC (4.5-10.0) K/mm3 RBC (4.2-5.4) M/mm3 Hgb (12.0-15.0) g/dL Hct (37.0-47.0) % MCV (80-100) fl MCH (26-34) pg MCHC (32-36) g/dl RDW (11.5-14.5) % Plt Count (150-375) k/mm3 MPV (7.4-10.4) fl Immature Gran % (Auto) (0-0.5) % Neut % (Auto) (45.5-73.1) % Lymph % (Auto) (18.3-44.2) % [place] % (Auto) (2.6-8.5) % Eos % (Auto) (0-4.4) % Baso % (Auto) (0.2-1.2) % Lymph # (Auto) (0.9-3.2) K/mm3 [place] # (Auto) (0.1-0.6) K/mm3 Eos # (Auto) (0-0.3) K/mm3 Baso # (Auto) (0.0-0.1) K/mm3 Abs Immat Gran (auto) (0.00-0.031) K/mm3 Absolute Neuts (auto) (1.3-6.7) K/mm3 Absolute Nucleated RBC (0.0-0.012) K/mm3 Nucleated RBC % (0.0-0.2) % PT (11.1-14.7) Seconds INR APTT (22.3-36.8) Seconds Sodium (137-145) mmol/L Potassium (3.4-5.0) mmol/L Chloride (98-107) mmol/L Carbon Dioxide (22-30) mmol/L Anion Gap (4-12) mmol/L BUN (7-17) mg/dL Creatinine (0.7-1.0) mg/dL Estim Creat Clear Calc Estimated GFR (59 - ) Glucose (65-110) mg/dL POC Capillary Glucose > 500 H* 498 H (65-105) mg/dl Lactic Acid (0.7-2.0) mmol/L Calcium (8.4-10.2) mg/dL Total Bilirubin (0.2-1.3) mg/dL AST (14-36) U/L ALT (6-35) U/L Alkaline Phosphatase (38-126) U/L C-Reactive Protein (<1.0) mg/dL Total Protein (6.3-8.2) g/dL Albumin (3.5-5.1) g/dL Discharge Plan Discharge Clinical Impression: Encounter for care related to Port-a-Cath Patient Disposition: Home Condition: Stable Additional Instructions: Please follow up with the surgery team who placed your port on Friday. If you notice any worsening redness or fevers or other concerning issues, please go to the [facility]. Patient Language: Macanese Prescriptions: No Action carvedilol 12.5 mg tablet 25 mg PO Q12H amlodipine 10 mg tablet 10 mg PO DAILY lisinopril 20 mg Tablet 20 mg PO QAM 30 Days Qty: 30 0RF furosemide 40 mg Tablet 40 mg PO DAILY acetaminophen 500 mg Tablet 500 mg PO Q6H PRN (Reason: Pain, Mild) diphenhydramine HCl 25 mg Capsule 25 mg PO Q8H PRN (Reason: Itching) prednisolone acetate 1 % drops,suspension 1 drp RIGHT EYE Q6H Rx Instructions: 1 Drop in right eye 4 x per day. ofloxacin 0.3 % drops 1 drp RIGHT EYE Q6H Rx Instructions: 1 drop right eye 4 x per day ketorolac 0.5 % drops 1 drp RIGHT EYE Q6H Rx Instructions: 1 drop to right eye 4 per day Trulicity 1.5 mg/0.5 mL pen injector 1.5 mg SUBCUT WEEKLY metronidazole 500 mg Tablet 500 mg PO Q8HR Qty: 5 0RF Rx Instructions: Please finish the course on 03/25/25 (DME) blood-glucose meter [OneTouch Verio Flex meter] Misc Qty: 1 0RF Rx Instructions: May substitute to in-stock meter and/or covered by insurance. Use As Directed (DME) OneTouch Verio test strips Strip Qty: 1 0RF Rx Instructions: May substitute to in-stock and/or covered by insurance strips. Use As Directed (DME) pen needle, diabetic 32 gauge x 5/32 Needle Qty: 1,200 0RF Rx Instructions: As Directed (DME) lancets [OneTouch Delica Plus Lancet] 30 gauge misc Qty: 1 0RF Rx Instructions: May substitute to in-stock and/or covered by insurance lancets. Use As Directed insulin glargine [Lantus Solostar U-100 Insulin] 100 unit/mL (3 mL) insulin pen 30 unit subcut QAM Qty: 15 0RF insulin aspart U-100 100 unit/mL (3 mL) insulin pen 1 sliding scale dose subcut USEASDIRECTD Qty: 15 0RF Rx Instructions: Rx Instructions: <70-Follow Hypoglycemic protocol 70-200: No addition Insulin 201-250: 3 U 251-300: 4 U 301-350: 5 U 351-400: 6 U >400: Call bisacodyl 10 mg Suppository 10 mg RECTAL DAILY PRN (Reason: Constipation) Rx Instructions: For use of no BM with milk of magnesia. tramadol 50 mg tablet 50 mg PO Q6H PRN (Reason: Moderate Pain (Scale Score 5-6)) Patient Comments: ran out off pills at home Eliquis 5 mg tablet 5 mg PO BID Slynd 4 mg (28) tablet 4 mg PO DAILY Follow-up/Referrals: Darnell,TOÑITO Luong [Primary Care Provider] - "
--- OUTSIDE RECORDS SUMMARY | 2025-03-20 00:20 | XMS_ITS | Encounter Summary ---
Author Organization [facility] Address [address] [place] [address] Care Team Providers Care Sanitation Manager Name Role Phone None, Provider Primary Care Provider Anniea ble Encounter Details Date Type Department Care Team (Late st Contact Info) Description 01/22/[address] [facility] Physical Therapy [address] [place] [id number] Penny Gould, PT [address] [place] [address] Social History Tobacco Use Types Packs/Day Years [...] documented as of this encounter Care Teams Sanitation Manager Relationship Specialty Start Date End Date None, Provider, PCP - General 07/29/22 documented as of this encounter
--- OUTSIDE RECORDS SUMMARY | 2025-03-20 00:20 | XMS_ITS | Clinical Summary ---
Author Organization [facility] Address [address] [place] [address] Care Team Providers Care Special Collections Librarian Name Role Phone None, Provider MD Primary [...] Morbid obesity 07/31/2022 Acute hypoxemic respiratory failure ([facility]) 07/29/2022 Social History Tobacco Use Types Packs/Day [...] +MRSA Right leg 07/30/2022 03/03/2023 Insurance [facility] [employer] [address] C/O PROVIDER SERVICES TOÑITO RAMIREZ [id number] JUANA Advance Directives * Full Code (Latest Code Status on File) Date Activated Date Inactivated Comments 07/31/2022 11:49 PM 08/07/2022 11:08 PM * Full Code Date Activated Date Inactivated Comments 07/29/2022 9:44 PM 07/31/2022 11:49 PM Care Teams Special Collections Librarian Relationship Specialty Start Date End Date None, Provider, PCP - General 07/29/22
--- OUTSIDE RECORDS SUMMARY | 2025-03-20 00:20 | XMS_ITS | Referral Summary ---
Author Organization [facility] Address [address] [place] [address] Care Team Providers Care Surgical Product Sales Consultant Name Role Phone Cherise Patrick Primary Care Provider [phone] Encounters Date Type Department Care Team Description 02/24/2025 11:10 AM CDT Office Visit [facility] Ophthalmology [address] [place] [phone] Luis Rodriguez MD Traction detachment of both retinas (Primary Dx); Neovascular glaucoma of right eye, severe stage 02/21/2025 11:00 AM CDT Office Visit [facility] Ophthalmology [address] [place] [address] [place] [phone] Sumi Gupta MD Neovascular glaucoma of right eye, severe stage (Primary Dx) 02/18/2025 3:45 PM CDT Office Visit [facility] Ophthalmology [address] [place] [phone] Bita Vega MD Pseudophakia, right eye (Primary Dx); Neovascular glaucoma of right eye, indeterminate stage; Traction detachment of both retinas 01/25/2025 9:15 AM CDT Office Visit [facility] Ophthalmology [address], [address] [place] [phone] Bita Vega MD Pseudophakia, right eye (Primary Dx); Traction detachment of both retinas 01/12/2025 Telephone [facility] Ophthalmology [address] [phone] Nancie Hoyos MD 01/11/2025 9:15 AM CDT Office Visit [facility] Ophthalmology [address] [facility] [address] [facility], [address] [place] [address] Bita Vega MD Pseudophakia, right eye (Primary Dx) 01/10/2025 10:30 AM CDT - 01/10/2025 11:15 AM CDT Surgery [facility] [address] [place] [phone] Bita Vega MD COMPLEX EXTRACTION CATARACT - PHACOEMULSIFICATION AND LENS IMPLANT 01/10/2025 11:39 AM CDT Anesthesia Event [facility] ([facility]) [address] [place] [phone] Carla Neri MD Mallette, Allison Anne, NP 01/10/2025 8:34 AM CDT - 01/10/2025 12:39 PM CDT Hospital Encounter [facility] [address] [place] [address] Bita Vega MD 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] (Primary Dx) Discharge Disposition: Discharge to home or self care 01/06/2025 Telephone [facility] Ophthalmology [facility] [address] [phone] Bita Vega MD 12/29/2024 Telephone [facility] Ophthalmology [address] [place] [phone] Bita Vega MD Med Refill; Rx change from Last 3 Months Allergies No known active allergies Medications furosemide (LASIX) 40 mg tabletIndicati ons:hypertensi on Take 1 tablet (40 mg total) by mouth early childhood special educator before breakfast Active carvediloL (COREG) 12.5 mg tabletIndicati ons:hypertensi on Take 1 tablet (12.5 mg total) by mouth 2 (two) times a day with meals Active amLODIPine (NORVASC) 10 mg tabletIndicati ons:hypertensi on Take 1 tablet (10 mg total) by mouth early childhood special educator before breakfast Active dulaglutide (TRULICITY) 0.75 mg/0.5 [...] (20 mg total) by mouth early childhood special educator before breakfast Active gabapentin (NEURONTIN) 300 mg [...] eye. Assessment & Plan (11/01/2024 2:13 PM BLASTING CAP ASSEMBLER): With severe tractional retinal detachments in both [...] Never 04/16/2023 How often do you attend episcopalian or faith serv ices? Never 04/16/2023 Do you belong to any clubs o r organizations such as episcopalian groups, unions, fraternal or athletic groups, or [...] slept in a snf (including now)? No 04/16/2023 Housing Stability Vital [...] on file Legal Sex Female 8:53 PM BLASTING CAP ASSEMBLER Gender Identity Female 12/23/2024 9:35 AM BLASTING CAP ASSEMBLER Sexual Orientation Straight 12/23/2024 9: 35 AM BLASTING CAP ASSEMBLER Last Filed Vital Signs Vital Sign Reading [...] cm (5' 7 ) 12/23/2024 9:15 AM BLASTING CAP ASSEMBLER Body Mass Index 38.84 12/23/2024 9:15 AM BLASTING CAP ASSEMBLER Plan of Treatment Not on file Medical Devices Implanted Type Area Health Communications Specialist Device Identifier Shelf Expiration Date Model / Serial / Lot [employer] Lens Iol [id number] Clareon [employer]va [employer]onom [id number] - [id number] - [id number] Implanted:Qty: 1 on 01/10/2025 by Bita Vega MD at [facility] Lens Right: Eye [employer] 06/14/2026 [id number] / [id number] Procedures Procedure Name Priority Date/Time Associated Diagnosis Comments B-SCAN ULTRASOUND 84996 - OD - RIGHT EYE Routine 02/24/2025 [...] URINE Routine 01/10/2025 9:30 AM CDT POCT AX-J-DEG-GLU-HCT,WB - ISTAT Routine 01/10/2025 9:28 AM CDT EGFR Routine 09/23/2023 5:39 PM BLASTING CAP ASSEMBLER ALBUMIN CREATININE RATIO, URINE Routine 04/17/2023 4:23 PM CDT LIPID PANEL Routine 04/17/2023 1:03 PM CDT HEMOGLOBIN A1C Routine 04/16/2023 7:06 AM CDT from Last 3 Months or Most Recently Relevant to Health Maintenance Results * B-SCAN ULTRASOUND 16256 - OD - RIGHT EYE (02/24/2025 12:45 [...] Iop 55--> 22 us Bita Vega MD [facility] PROCEDURES Fin al Result * (ABNORMAL) POCT glucose (01/10/2025 12:14 PM CDT) Glucose, POC 249(H) 70 - 199 mg/dL Blood 01/10/2025 12:1 4 PM CDT 01/10/2025 12:14 PM CDT Result [facility] Bita Vega MD LAB POCT ORDERABLES - DEVIC E Final Result Performing Organization Address City/[facility] Co de Phone Number [facility] [employer] [place] [address] * (ABNORMAL) POCT glucose (01/10/2025 11:22 AM CDT) Glucose, POC 334(H) 70 - 199 mg/dL Blood 01/10/2025 11:2 2 AM CDT 01/10/2025 11:22 AM CDT us Bita Vega MD LAB POCT ORDERABLES - DEVIC E Final Result Performing Organization Address City/[facility] Co de Phone Number [facility] Department [place] [address] * (ABNORMAL) POCT glucose (01/10/2025 10:34 AM CDT) Pathologist [facility] Glucose, POC 377(H) 70 - 199 mg/dL Blood 01/10/2025 10:3 4 AM CDT 01/10/2025 10:34 AM CDT Bita Vega MD LAB POCT ORDERABLES - DEVIC E Final Result Performing Organization Address City/[facility]/ZIP Co de Phone Number [facility] Department [place] [address] * POCT hCG, urine (01/10/2025 9:30 AM CDT) [facility] HCG, ur, POC Negative Negative Lot Number [id number] QC Backgroud Clear Acceptable QC Control Line Acceptable Urine 01/10/2025 9:30 AM CDT Carla Neri MD POINT OF CARE TEST ORDERA BLES Final Result * (ABNORMAL) POCT IF-A-QGL-GLU-HCT, WB - ISTAT (01/10/2025 9:28 AM CDT) [facility] Na POC 132(L) 135 - 145 mmol/L K POC 4.4 3.3 - 4.9 mmol/L [facility] Comment: Interpretive Data This method is not able to assess for hemolysis, which may falsely increase potassium concentrations. If further testing is needed to evaluate this result, consider in-laboratory plasma potassium. Current Interpretive Data was last revised on 2022. Glucose POC i-STAT 438(H) 70 - 199 mg/dL [facility] Hct, POC 39.0 35.6 - 45.5 % [facility] Blood 01/10/2025 9:28 AM CDT 01/10/2025 9:28 AM CDT Bita Vega MD LAB POCT ORDERABLES - DEVIC E Final Result Performing Organization Address [facility] Co de Phone Number [facility] Department [place] [address] * eGFR (09/23/2023 5:39 PM BLASTING CAP ASSEMBLER) eGFR 22 mL/min/1. 73 m2 [facility] BRADEN [...] last reviewed 2021. Blood 09/23/2023 5:39 PM BLASTING CAP ASSEMBLER 09/23/2023 8:31 PM BLASTING CAP ASSEMBLER Tyrel Simmons MD LAB BLOOD ORDERABLES Final Result [facility] [address] [facility] Department [place] [address] * (ABNORMAL) Albumin Creatinine Ratio, Urine (04/17/2023 [...] LAB URINE ORDERABLES Final Re sult [facility] [address] [facility] [place] [address] * (ABNORMAL) Lipid panel (04/17/2023 1:03 PM [...] BLOOD ORDERABLES Final Re sult [facility] DOWD [address] [facility] [place] [address] * (ABNORMAL) Hemoglobin A1c (04/16/2023 [...] and children were not included. (Diabetes Care 31:3412-1519, 2008). The eAG is not equivalent to a fasting glucose. Blood 04/16/2023 7:06 AM CDT 04/16/2023 7:45 AM CDT us Amilcar Estrada MD LAB BLOOD ORDERABLES Final Re sult AMANDAJONNIE [address] [facility] Department [place] [address] from Last 3 Months or Most Recently Relevant to Health Maintenance Insurance [facility] OTHER Address: [facility] [address] [place] [address] [facility] MEDICARE Advance Directives For more information, please contact: [phone] Documents on File Type Date Recorded Patient Accounts Collector Expl anation ADVANCE DIRECTIVE 04/23/2023 12:11 PM Breana r of Programmer Developer-Medical ADVANCE DIRECTIVE 04/23/2023 12:11 PM POLS T [...] Relationship Healthcare Agent Relationship Communication Kianna Nunez [facility] Care Agent [email or web address] Suellen Resendiz Mother [facility] Health Care Agent [email or web address] Care Teams Surgical Product Sales Consultant Relationship Specialty Start Date End Date Cherise Patrick PA [address] [place] [address] PCP - General Physician Global Supply Chain Vice President 02/20/23
[2025-03-20 00:45] LABS: Basophils Percent Auto 0.3 % (0.2-1.2); Eosinophils Absolute Auto 0.7 K/mm3 (0-0.3); Hematocrit 36.3 % (37.0-47.0); Hemoglobin 10.6 g/dL (12.0-15.0); Immature Granulocyte Absolute 0.09 K/mm3 (0.00-0.031); Immature Granulocyte Percent A 0.8 % (0-0.5); Lymphocytes Absolute Auto 1.69 K/mm3 (0.9-3.2); Lymphocytes Percent Auto 14.4 % (18.3-44.2); Mean Corpuscular HGB Conc 29.2 g/dl (32-36); Mean Corpuscular Hemoglobin 27.9 pg (26-34); Mean Corpuscular Volume 95.5 fl (80-100); Monocytes Absolute Auto 0.6 K/mm3 (0.1-0.6); Monocytes Percent Auto 5.5 % (2.6-8.5); Neutrophils Absolute Auto 8.6 K/mm3 (1.3-6.7); Platelet Count Result 405 k/mm3 (150-375); Red Cell Distribution Width 13.9 % (11.5-14.5); White Blood Count 11.7 K/mm3 (4.5-10.0)
[2025-03-20 00:52] VITALS: BP 145/75; O2SAT 100
[2025-03-20 01:01] VITALS: BP 148/79; O2SAT 100
[2025-03-20 01:01] LABS: Prothrombin Time 13.7 Seconds (11.1-14.7)
[2025-03-20 01:02] LABS: Partial Thromboplastin Time 28.7 Seconds (22.3-36.8)
[2025-03-20 01:04] LABS: Lactic Acid Reflex 1.5 mmol/L (0.7-2.0)
[2025-03-20 01:08] LABS: Alanine Aminotransferase 14 U/L (6-35); Albumin Level 3.2 g/dL (3.5-5.1); Alkaline Phosphatase 283 U/L (38-126); Anion Gap 10 mmol/L (4-12); Aspartate Amino Transferase 19 U/L (14-36); Bilirubin,Total 0.2 mg/dL (0.2-1.3); Blood Urea Nitrogen 16 mg/dL (7-17); CRP 1.7 mg/dL (<1.0); Calcium 7.9 mg/dL (8.4-10.2); Carbon Dioxide 19 mmol/L (22-30); Chloride 103 mmol/L (98-107); Estimated Glomerular Filt Rate 11; Glucose 674 mg/dL (65-110); Potassium 3.8 mmol/L (3.4-5.0); Sodium 132 mmol/L (137-145)
[2025-03-20 01:16] VITALS: BP 152/80; O2SAT 100
[2025-03-20] MEDS: INSULIN HUMAN REGULAR (*BKC) 100 UNITS/ML 15 UNITS SUB-Q ×2 (01:21→02:30)
[2025-03-20 01:31] VITALS: BP 138/75; PULSE 91; RESP 16; O2SAT 99
[2025-03-20 01:49] LABS: Glucose Point of Care > 500 mg/dl (65-105)
--- NOTE | 2025-03-20 01:50 | ED.RECABL ---
HPI - Recheck/Abnormal Lab/Rx General Chief Complaint: Recheck/Abnormal Lab/Rx Stated Complaint: Dialysis port placed yesterday- dressing not on Time Seen by Provider: 03/19/25 23:42 History of Present Illness HPI narrative: Patient just had dialysis port placed yesterday at [facility], and woke up noticing that the dressing was half off, and she is having some slight swelling and pain there. Related Data Home Medications Medication Instructions Recorded Confirmed Last Taken Type amlodipine 10 mg tablet 10 mg PO DAILY 08/04/23 01/14/25 11/09/24 History carvedilol 12.5 mg tablet 25 mg PO Q12H 08/04/23 01/14/25 01/13/25 History bisacodyl 10 mg rectal suppository 10 mg RECTAL DAILY PRN Constipation 02/16/24 01/14/25 Unknown History tramadol 50 mg tablet 50 mg PO Q6H PRN Moderate Pain 02/16/24 01/14/25 11/06/24 History (Scale Score 5-6) acetaminophen 500 mg tablet 500 mg PO Q6H PRN Pain, Mild 05/16/24 01/14/25 01/13/25 History diphenhydramine HCl 25 mg capsule 25 mg PO Q8H PRN Itching 05/16/24 01/14/25 11/09/24 History furosemide 40 mg tablet 40 mg PO DAILY 05/16/24 01/14/25 01/13/25 History apixaban 5 mg tablet (Eliquis) 5 mg PO BID 11/10/24 01/14/25 01/13/25 History drospirenone (contraceptive) 4 mg 4 mg PO DAILY 11/10/24 01/14/25 01/13/25 History (28) tablet (Slynd) dulaglutide 1.5 mg/0.5 mL 1.5 mg subcut WEEKLY 01/14/25 01/14/25 Unknown History subcutaneous pen injector (Trulicity) ketorolac 0.5 % eye drops 1 drp RIGHT EYE Q6H 01/14/25 01/14/25 01/13/25 History ofloxacin 0.3 % eye drops 1 drp RIGHT EYE Q6H 01/14/25 01/14/25 01/13/25 History prednisolone acetate 1 % eye 1 drp RIGHT EYE Q6H 01/14/25 01/14/25 01/13/25 History drops,suspension Allergies Allergy/AdvReac Type Severity Reaction Status Date / Time hydrocodone Allergy Mild Hives Verified 01/14/25 08:27 oxycodone Allergy Mild Hives Verified 01/14/25 08:27 Review of Systems Review of Systems: All systems reviewed & are unremarkable except as noted in HPI and below PMFSH Past Medical History Medical History Septic arthritis of shoulder, left (05/2024) Diastolic heart failure secondary to hypertension EF 70% with grade 2 diastolic dysfunction echocardiogram August 2023 Anemia in chronic kidney disease End-stage renal disease on hemodialysis Hemodialysis initiated August 2023 Glaucoma Blind in both eyes (~03/2023) Occurred acutely March 2023 Nephrotic syndrome Diabetic neuropathy Hyperlipidemia Obstructive sleep apnea Patient has not had a formal polysomnogram but had positive ApneaLink August 2023 Diabetic nephropathy with proteinuria Nephrotic range Chronic heel ulcer Chronic heel ulcer on the left foot developed November 2022 with acute decompensation and subsequent above the knee amputation, no unfortunately do developed a right heel ulcer the fall of 2022 that is been persistent CHF (congestive heart failure) Hypertension Diabetes mellitus Surgical History Surgical History Status post cataract extraction and insertion of intraocular lens of right eye Status post insertion of dialysis catheter (08/2023) Right subclavian History of left below knee amputation (~12/2022) Due to osteomyelitis Family History Family History Father Diabetes mellitus Hypertension Mother Hypertension Obesity Sibling Diabetes mellitus, Onset Age: 28 Sibling Unknown family medical history Does not see a doctor Diabetes mellitus Social History Social History Social History: The patient reports that 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 Since August 2022 she moved in with her sister. She has had a severe significant decline in her health and December 2022had left above the knee amputation. She has been in out of [facility] and rehab facilities since that time. She is a lifelong nonsmoker. She used to rarely smoke marijuana. She had no significant alcohol use history. She does not have any children. Code status: DNR/DNI (per patient request) evidently during prior hospitalization when the patient became unresponsive family change the patient's code status back to (08/13/2023) full code. Surrogate decision maker: Kianna Nunez (sister) Smoking status: Never smoker Additional smoking assessment comments: never smoked cigarettes Alcohol intake: never Drinks per week: 0 Substance use: former Substance use type: does not use Do You Feel Safe in your Home?: Yes Lack of Transportation: No Lack of Food: Never True Current Housing: I Have Housing Concerned About Future Housing: No Difficulty Paying Gas/Electric Bills: No Difficulty Paying for Meds: No Currently Unemployed: No Education: Grade School Difficulty w/ Childcare or Family Care: No Spiritual care concerns: No Exam Narrative: EXAMINATION OF ORGAN SYSTEMS/BODY AREAS: Constitutional: Vital signs per nursing GENERAL:[No acute distress, non-toxic appearing.] HEAD: Normal with no signs of head trauma. EYES: EOMI, conjunctiva normal ENT: Hearing grossly intact LUNGS: Nonlabored breathing. HEART: [Regular rate and rhythm] ABD: [Soft], [nontender to palpation] EXT: BKA SKIN: Central line dressing half off of port site, however the area is clean and dry, without any signs of erythema or drainage, there is some slight swelling/bulge under the skin where I can feel the cath NEURO: [Alert and oriented x 3. No gross focal sensory or strength deficits.] PSYCH: Normal affect Course Vital Signs Vital signs: Vital Signs Temperature 97.8 F 03/19/25 23:13 Pulse Rate 101 H 03/19/25 23:13 Respiratory Rate 16 03/19/25 23:13 Blood Pressure 166/86 H 03/19/25 23:13 Pulse Oximetry 100 03/19/25 23:13 Oxygen Delivery Room Air 03/19/25 23:13 Temperature 97.8 F 03/19/25 23:13 Pulse Rate 101 H 03/19/25 23:13 Respiratory Rate 16 03/19/25 23:13 Blood Pressure 148/79 H 03/20/25 01:01 Pulse Oximetry 100 03/20/25 01:01 Oxygen Delivery Room Air 03/19/25 23:13 Procedures EJ/Peripheral Line Arm R: EJ/Peripheral Line Date: 03/20/25 EJ/Peripheral Line Time: 00:05 Skin Cleansed in Sterile Fashion: Yes Ultrasound Guided: Yes Size (gauge): 20 IV Secured and Dressing Applied: Yes Patient Tolerated Procedure: well and no complications MDM - Recheck/Abnormal Lab/Rx MDM Narrative Medical decision making narrative: Patient presents with concern for left chest PermCath malfunction, on exam there is no obvious signs of infection, no redness or induration, though there is some bulge under the skin where the catheter is, chest x-ray my independent interpretation does seem to show the catheter to be in place, labs obtained by myself and ultrasound IV placed by myself. D/[facility] nephro resident Dr Maguire (per her discharge papers, to contact them for any issues); he states that she can follow up with the team on Friday. Discussed with patient who is comfortable with this plan. Her labs within acceptable limits here other than her blood sugar which is quite elevated, and she is given 2 doses of insulin with improvement to her blood sugar. I have let her know if anything changes she should go straight to the [facility] emergency room. Patient agreeable to this plan. Lab Data 03/20/25 00:36 03/20/25 00:36 Labs: Lab Results 03/20/25 03/20/25 03/20/25 Range/Units 00:36 00:49 01:45 WBC 11.7 H (4.5-10.0) K/mm3 RBC 3.80 L (4.2-5.4) M/mm3 Hgb 10.6 L (12.0-15.0) g/dL Hct 36.3 L (37.0-47.0) % MCV 95.5 (80-100) fl MCH 27.9 (26-34) pg MCHC 29.2 L (32-36) g/dl RDW 13.9 (11.5-14.5) % Plt Count 405 H (150-375) k/mm3 MPV 10.0 (7.4-10.4) fl Immature Gran % (Auto) 0.8 H (0-0.5) % Neut % (Auto) 73.0 (45.5-73.1) % Lymph % (Auto) 14.4 L (18.3-44.2) % Meigs % (Auto) 5.5 (2.6-8.5) % Eos % (Auto) 6.0 H (0-4.4) % Baso % (Auto) 0.3 (0.2-1.2) % Lymph # (Auto) 1.69 (0.9-3.2) K/mm3 Meigs # (Auto) 0.6 (0.1-0.6) K/mm3 Eos # (Auto) 0.7 H (0-0.3) K/mm3 Baso # (Auto) 0.0 (0.0-0.1) K/mm3 Abs Immat Gran (auto) 0.09 H (0.00-0.031) K/mm3 Absolute Neuts (auto) 8.6 H (1.3-6.7) K/mm3 Absolute Nucleated RBC 0.000 (0.0-0.012) K/mm3 Nucleated RBC % 0.0 (0.0-0.2) % PT 13.7 (11.1-14.7) Seconds INR 1.0 APTT 28.7 (22.3-36.8) Seconds Sodium 132 L (137-145) mmol/L Potassium 3.8 (3.4-5.0) mmol/L Chloride 103 (98-107) mmol/L Carbon Dioxide 19 L (22-30) mmol/L Anion Gap 10 (4-12) mmol/L BUN 16 D (7-17) mg/dL Creatinine 4.47 H (0.7-1.0) mg/dL Estim Creat Clear Calc Not Reportable Estimated GFR 11 L (59 - ) Glucose 674 H* (65-110) mg/dL POC Capillary Glucose > 500 H* (65-105) mg/dl Lactic Acid 1.5 (0.7-2.0) mmol/L Calcium 7.9 L (8.4-10.2) mg/dL Total Bilirubin 0.2 (0.2-1.3) mg/dL AST 19 (14-36) U/L ALT 14 (6-35) U/L Alkaline Phosphatase 283 H (38-126) U/L C-Reactive Protein 1.7 H (<1.0) mg/dL Total Protein 7.0 (6.3-8.2) g/dL Albumin 3.2 L (3.5-5.1) g/dL 03/20/25 03/20/25 Range/Units 02:28 03:30 WBC (4.5-10.0) K/mm3 RBC (4.2-5.4) M/mm3 Hgb (12.0-15.0) g/dL Hct (37.0-47.0) % MCV (80-100) fl MCH (26-34) pg MCHC (32-36) g/dl RDW (11.5-14.5) % Plt Count (150-375) k/mm3 MPV (7.4-10.4) fl Immature Gran % (Auto) (0-0.5) % Neut % (Auto) (45.5-73.1) % Lymph % (Auto) (18.3-44.2) % Meigs % (Auto) (2.6-8.5) % Eos % (Auto) (0-4.4) % Baso % (Auto) (0.2-1.2) % Lymph # (Auto) (0.9-3.2) K/mm3 Meigs # (Auto) (0.1-0.6) K/mm3 Eos # (Auto) (0-0.3) K/mm3 Baso # (Auto) (0.0-0.1) K/mm3 Abs Immat Gran (auto) (0.00-0.031) K/mm3 Absolute Neuts (auto) (1.3-6.7) K/mm3 Absolute Nucleated RBC (0.0-0.012) K/mm3 Nucleated RBC % (0.0-0.2) % PT (11.1-14.7) Seconds INR APTT (22.3-36.8) Seconds Sodium (137-145) mmol/L Potassium (3.4-5.0) mmol/L Chloride (98-107) mmol/L Carbon Dioxide (22-30) mmol/L Anion Gap (4-12) mmol/L BUN (7-17) mg/dL Creatinine (0.7-1.0) mg/dL Estim Creat Clear Calc Estimated GFR (59 - ) Glucose (65-110) mg/dL POC Capillary Glucose > 500 H* 498 H (65-105) mg/dl Lactic Acid (0.7-2.0) mmol/L Calcium (8.4-10.2) mg/dL Total Bilirubin (0.2-1.3) mg/dL AST (14-36) U/L ALT (6-35) U/L Alkaline Phosphatase (38-126) U/L C-Reactive Protein (<1.0) mg/dL Total Protein (6.3-8.2) g/dL Albumin (3.5-5.1) g/dL Discharge Plan Discharge Clinical Impression: Encounter for care related to Port-a-Cath Patient Disposition: Home Condition: Stable Additional Instructions: Please follow up with the surgery team who placed your port on Friday. If you notice any worsening redness or fevers or other concerning issues, please go to the [facility]. Patient Language: Irish Prescriptions: No Action carvedilol 12.5 mg tablet 25 mg PO Q12H amlodipine 10 mg tablet 10 mg PO DAILY lisinopril 20 mg Tablet 20 mg PO QAM 30 Days Qty: 30 0RF furosemide 40 mg Tablet 40 mg PO DAILY acetaminophen 500 mg Tablet 500 mg PO Q6H PRN (Reason: Pain, Mild) diphenhydramine HCl 25 mg Capsule 25 mg PO Q8H PRN (Reason: Itching) prednisolone acetate 1 % drops,suspension 1 drp RIGHT EYE Q6H Rx Instructions: 1 Drop in right eye 4 x per day. ofloxacin 0.3 % drops 1 drp RIGHT EYE Q6H Rx Instructions: 1 drop right eye 4 x per day ketorolac 0.5 % drops 1 drp RIGHT EYE Q6H Rx Instructions: 1 drop to right eye 4 per day Trulicity 1.5 mg/0.5 mL pen injector 1.5 mg SUBCUT WEEKLY metronidazole 500 mg Tablet 500 mg PO Q8HR Qty: 5 0RF Rx Instructions: Please finish the course on 01/25/25 (DME) blood-glucose meter [OneTouch Verio Flex meter] [facility] [place] [place] Qty: 1 0RF Rx Instructions: May substitute to in-stock meter and/or covered by insurance. Use As Directed (DME) OneTouch Verio test strips Strip Qty: 1 0RF Rx Instructions: May substitute to in-stock and/or covered by insurance strips. Use As Directed (DME) pen needle, diabetic 32 gauge x 5/32 Needle Qty: 1,200 0RF Rx Instructions: As Directed (DME) lancets [OneTouch Delica Plus Lancet] 30 gauge misc Qty: 1 0RF Rx Instructions: May substitute to in-stock and/or covered by insurance lancets. Use As Directed insulin glargine [Lantus Solostar U-100 Insulin] 100 unit/mL (3 mL) insulin pen 30 unit subcut QAM Qty: 15 0RF insulin aspart U-100 100 unit/mL (3 mL) insulin pen 1 sliding scale dose subcut USEASDIRECTD Qty: 15 0RF Rx Instructions: Rx Instructions: <70-Follow Hypoglycemic protocol 70-200: No addition Insulin 201-250: 3 U 251-300: 4 U 301-350: 5 U 351-400: 6 U >400: Call bisacodyl 10 mg Suppository 10 mg RECTAL DAILY PRN (Reason: Constipation) Rx Instructions: For use of no BM with milk of magnesia. tramadol 50 mg tablet 50 mg PO Q6H PRN (Reason: Moderate Pain (Scale Score 5-6)) Patient Comments: ran out off pills at home Eliquis 5 mg tablet 5 mg PO BID Slynd 4 mg (28) tablet 4 mg PO DAILY Follow-up/Referrals: Darnell,TOÑITO Luong [Primary Care Provider] -
[2025-03-20] MEDS: POTASSIUM CHLORIDE 20 MEQ PACKET (FOR LIQUID) 40 MEQ PO (02:32)
[2025-03-20 02:36] LABS: Glucose Point of Care > 500 mg/dl (65-105)
[2025-03-20] MEDS: fentaNYL CITRATE INJ (*CRX) 100 MCG/2 ML VIAL 50 MCG IV PUSH (03:05)
[2025-03-20 03:32] LABS: Glucose Point of Care 498 mg/dl (65-105)
[2025-03-20 04:45] VITALS: O2SAT 100
--- NOTE | 2025-03-20 04:46 | PC.NURSE ---
Attempted to have pt get dressed for when she departures. Pt states she will wait until they get here.
--- NOTE | 2025-03-20 06:00 | PC.NURSE ---
Pt got dressed and took BP cuff,, cords, and O2 off.
[2025-03-20 07:18] VITALS: BP 134/92; PULSE 94; RESP 18; O2SAT 100
== END 2025-03-20 08:41 | disposition home or self-care (01) ==
PROVIDERS: Emergency Provider Emergency Medicine; PCP Physician Assistant
DX: Z49.01 Encounter for fitting and adjustment of extracorporeal dialysis catheter (principal); I11.0 Hypertensive heart disease with heart failure; I50.30 Unspecified diastolic (congestive) heart failure; I13.2 Hypertensive heart and chronic kidney disease with heart failure and with stage 5 chronic kidney disease, or end stage renal disease; E11.22 Type 2 diabetes mellitus with diabetic chronic kidney disease; N18.6 End stage renal disease; D63.1 Anemia in chronic kidney disease; E11.40 Type 2 diabetes mellitus with diabetic neuropathy, unspecified; E11.21 Type 2 diabetes mellitus with diabetic nephropathy; G47.33 Obstructive sleep apnea (adult) (pediatric); Z66 Do not resuscitate; Z96.1 Presence of intraocular lens; Z98.41 Cataract extraction status, right eye; Z89.512 Acquired absence of left leg below knee; Z79.899 Other long term (current) drug therapy; Z79.85 Long-term (current) use of injectable non-insulin antidiabetic drugs; Z79.4 Long term (current) use of insulin; Z79.01 Long term (current) use of 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
CPT/HCPCS: 36415; 71046; 80053; 82948; 83605; 85025; 85610; 85730; 86140; 87040; 87181; 96374; 99284; A9270; J1815; J3010

== ENCOUNTER 2025-03-28 02:27 | Inpatient (IN) | payer MEDICARE, MEDICAID, SELFPAY ==
[2025-03-28] VITALS (18 sets, daily range): BP systolic 86–128; BP diastolic 44–65; PULSE 82–109; RESP 17–32; TEMP 36.3–36.8; O2SAT 90–100
--- NOTE | ~2025-03-28 | CT_ITS ---
CLINICAL INDICATION: Leukocytosis with cough, nausea vomiting and diarrhea. Chronic renal failure. Ra dial failure, diabetic, with hyperglycemia. COMPARISON: . TECHNIQUE: Multiple contiguous axial images of the chest, abdomen and pelvis were performed without t he administration of intravenous contrast The dose-length product (DLP) was 1830.86 mGy-cm. Automated exposure control and iterative reconstruction technique were employed. FINDINGS/OBSERVATIONS: LUNG:Patchy groundglass opacification of the bilateral lung nunn, with a bilateral upper lobe distr ibution and trace bibasilar atelectasis. MEDIASTINUM: Limited evaluation without intravenous contrast. HEART: The heart is of normal size, with a small pericardial effusion. SOFT TISSUES OF THE CHEST: Unremarkable. Liver: The liver demonstrates homogeneous attenuation and is not enlarged. Gallbladder and biliary system: The gallbladder is only minimally distended, and otherwise unremarkable. Pancreas: Limited evaluation of the pancreas secondary to the lack of intravenous contrast. Spleen: The spleen demonstrates homogeneous attenuation and is not enlarged. Kidneys: Inflammatory changes identified within the bilateral renal calyces (right greater than left), suggest ing acute pyelonephritis for which clinical correlation is needed. Typically, contrast would enhance in a striated wedge-shaped pattern, but without intravenous contras t, the only CT finding may be inflammatory change. Adrenal glands: Unremarkable. Gastrointestinal tract: Colonic diverticulosis without surrounding inflammatory change. Fecal stasis within the colon. Fluid-filled distention of the small bowel, primarily to the left of midline without mural thickening reaching a maximal caliber of 3.6 cm. Appendix: The air-filled appendix is of normal caliber (axial series, images 177 through 194). Vasculature: Unremarkable. The inferior vena cava is normally distended, suggesting euvolemia. Lymph nodes: Limited evaluation without intravenous contrast. Pelvic structures: The bladder is only minimally distended, and otherwise unremarkable. The right ureter attaches to the bladder in a posterior lateral position, rather than posterior impla ntation, a finding of uncertain clinical significance. The uterus is anteverted and anteflexed, and otherwise unremarkable. Body wall and musculoskeletal: Small fat-containing umbilical hernia. No significant degenerative disease within the lower thoracic or lumbosacral spine. IMPRESSION: Inflammatory change of the bilateral renal calyces, right greater than left for which pyelonephritis is suspected, and for which clinical correlation is needed. Findings within the chest suggesting trace pulmonary edema with a bilateral upper lobe distribution. Reviewed, dictated and finalized at location A. IMPRESSION: Inflammatory change of the bilateral renal calyces, right greater than left for which pyelonephritis is suspected, and for which clinical correlation is neede d. Findings within the chest suggesting trace pulmonary edema with a bilateral upp er lobe distribution.
--- NOTE | ~2025-03-28 | XR_ITS ---
XR foot RT min 3V Ordering provider: Angeles Smith PA-C History: . right heel wound . Comparison: None. FINDINGS: BONES: No acute fracture or dislocation. No evidence of osteomyelitis. JOINT SPACES: Narrowing of the proximal and distal interphalangeal joints. No tarsal coalition. SOFT TISSUES: Highly suggestive laceration on the plantar aspect of the foot in the area of the calca neus. Calcaneal spur. IMPRESSION: No acute osseous abnormality of the right foot. Polyarticular osteoarthritic changes. Laceration in the plantar aspect of the foot opposite the calcaneus. Reviewed, dictated and finalized at location A.
--- OUTSIDE RECORDS SUMMARY | 2025-03-28 02:30 | XMS_ITS | Encounter Summary ---
Author Organization [facility] Address [address] [address] Care Team Providers Care Stapler Hand Name Role Phone Cherise Patrick PA-C Primary Care Provider Reason for Visit * Reason Onset Date Comments Hospital Admission 04/24/2023 Encounter Details Date Type Department Care Team (Late st Contact Info) Description 04/24/2023 Telephone [facility] [address] [place] [address] Sameer Navarro MD [facility] [id number] Hospital Admission Social History Tobacco [...] and heating? Not hard at all 04/28/2023 [facility] - Occupational Stress [...] in a halfway (including now)? No 04/28/2023 Comments No Sex and Gender Information Value Date Recorded Sex Assigned at Not on file Legal Sex Female 6:46 AM [employer] Gender Identity Not on file Sexual Orientation [...] Navarro MD - 04/24/2023 12:21 PM CDT [facility] Outside Hospital Transfer Call Documentation Date:04/24/2023 Time:12:21 PM Patient: Gay Canales : 1990 Referring Facility Name: [facility] Reason for Transfer: Right foot debridement vs BKA Brief Description (including applicable labs, imaging, consultations): 32 year old??female??with past medical history of DM 2, HTN, HFpEF, ??morbid obesity, MDD , status post left [facility] in November, at [facility] when she presented with necrotizing fasciitis and [...] GIbleeding now. Patient needs on arrival to [facility]: Medicine admissions resident (ask live truck operator for Medicine Admission) to be notified of arrival. Consultation to (N/A if blank): Vascular/general surgery I have accepted this patient for transfer to [facility]. If patient awaiting bed for [...] documented as of this encounter Care Teams Stapler Hand Relationship Specialty Start Date End Date Cherise Patrick PA-C [address] [place] [phone] PCP - General 02/23/24 documented as of this encounter
--- OUTSIDE RECORDS SUMMARY | 2025-03-28 02:31 | XMS_ITS | Data Portability ---
Author Organization [facility] Address [address] [place] [id number] Assessment Encounter Date Assessment Date Assessment LastModified by Organization Details LastModified Time 02/14/2023 02/14/2023 Sections of the HPI, exam and assessment completed by TOÑITO Vidal student and have been reviewed by me. I agree with the exam findings, assessment and plan except where specifically documented or amended. -Cherise Patrick, [facility], PAJose EnriqueC [email or web address] Not available 02/14/2023 15:04:33 09/08/2024 09/08/2024 Advised pt to f/u in 1 mo. [email or web address] Not available 09/09/2024 10:18:52 Plan of Treatment Reminders Order Date Submit Date Provider Last Modified By Organization Details Last Modified Time Details Appointments None recorded. Lab HbA1c (hemoglobin A1c), blood 2024 025 RIGOBERTO [facility], [address], [place], [address], 5 11:17:10 ESR (erythrocyt e sedimentati on rate), blood 2024 025 RIGOBERTO [facility], [address], [address], [place], [address], 5 11:17:11 test, urine 2023 024 [email or web address] In-Office Order, Internal Use Only DO Not Attach Compendium DO Not Attach Compendium, Do Not Delete/merge, [id number] 4 17:28:33 microalbumi n/creatinin e, mass ratio, urine 2023 024 [facility], [address], [address], [place], [address], 4 12:29:42 pro BNP (pro B-type natriuretic peptide), serum or plasma 2022 023 [facility], [address], [address], [place], [address], 3 16:14:02 CMP, serum or plasma 2022 023 [facility], [address], [address], [place], [address], 3 16:14:05 lipid panel, serum 2022 023 [facility], [address], [address], [place], [address], 3 16:14:04 CBC w/ auto diff 2022 023 [facility], [address], [address], [place], [address], 3 16:14:08 TSH + free T4, serum 2022 023 [facility], [address], [address], [place], [address], 3 16:14:03 CK (creatine kinase), total, serum 2022 023 [facility], [address], [address], [place], [address], 3 16:14:07 CMP, serum or plasma 2022 023 [facility], [address], [address], [place], [address], 3 13:01:01 lipid panel, serum 2022 023 [facility], [address], [address], [place], [address], 3 13:01:00 TSH + free T4, serum 2022 023 [facility], [address], [address], [place], [address], 3 13:01:01 iron + total iron-bindin g capacity (TIBC), serum 2022 023 [facility], [address], [address], [place], [address], 3 13:01:00 ferritin, serum or plasma 2022 023 [facility], [address], [address], [place], [address], 3 13:01:00 CBC w/ auto diff 2022 023 [facility], [address], [address], [place], [address], 3 13:01:00 Referral wound care referral [address] [facility], [address], [place], [address], 5 08:06:20 gait training referral [address] (Outpatient Physical Therapy), [address], [place], [address], 5 08:28:52 cardiologis t referral 2023 024 [place] [address] Mateo Ortiz MD, [address], [address], [place], [address], 4 08:21:20 ophthalmolo gist referral 2023 024 [email or web address] [facility], [address] [facility], [place], [address], 4 08:07:09 home health referral 2022 023 [facility], [address] [facility], [facility], [place], [address], 3 12:01:50 wound care referral - h/o uncontrolle d type 2 diabetes 2022 023 [facility], [address], [place], [address], 3 09:30:31 Procedures None recorded. Surgeries None recorded. Imaging None recorded. Medication Orders carvedilol 25 mg tablet 2024 025 [facility], [facility] [place], [address], 5 18:41:40 Trulicity 0.75 mg/0.5 mL subcutaneou s pen injector 2024 025 [facility], [facility] [place], [address], 5 18:41:39 tramadol 50 mg tablet 2024 025 [facility], [facility] [place], [address], 5 16:19:51 Eliquis 5 mg tablet 2023 024 maria [facility], [facility] [place], [address], 4 17:27:56 Senexon-S 8.6 mg-50 mg tablet 2023 [facility], [address] [place] [address], [address], 4 17:12:34 furosemide 40 mg tablet 2023 [facility] [address], [address] [place] [address], [address], 4 17:12:40 carvedilol 25 mg tablet 2023 [facility] [address], [address] [place] [address], [address], 4 17:12:33 gabapentin 300 mg capsule 2023 [facility] [address], [address] [place] [address], [address], 4 17:12:36 Slynd 4 mg (28) tablet 2023 [facility], [address] [place] [address], [address], 4 10:14:30 Trulicity 0.75 mg/0.5 mL subcutaneou s pen injector 2023 024 [facility], [address] [place] [address], [address], 4 10:14:34 amlodipine 10 mg tablet 2023 024 [facility], [address] [place] [address], [address], 4 17:12:32 lisinopril 20 mg tablet 2023 [facility], [address] [place] [address], [address], 4 17:12:29 methocarbam ol 500 mg tablet 2023 024 [facility] [address], [address] [place] [address], [address], 4 17:12:31 tramadol 50 mg tablet 2023 024 [facility] [address], [address] [place] [address], [address], 4 10:12:20 Trulicity 0.75 mg/0.5 mL subcutaneou s pen injector 2022 023 [place] [address], [address] [place] [address], [address], 4 12:08:56 OneTouch Verio test strips 2022 023 [facility] [address], [address] [place] [address], [address], 4 12:09:17 metformin 500 mg tablet 2022 023 [facility] [address], [address] [place] [address], [address], 12:09:28 Patient TargetsNo targets recorded. Patient InstructionsNo instructions recorded. Reason for Referral h/o uncontrolled type 2 diab etes Referring Physician: [facility], Encounter Date: 02/14/2023 Home Health Referral for Amp utated left lower limb below knee Referring Physician: [facility], Encounter Date: 03/20/2023 Custom Bike Builder Referral for Bilateral cataracts Referring Physician: [facility], Encounter Date: 09/08/2024 Civil Service Clerk Referral for He art failure with normal ejection fraction Referring Physician: [facility], Encounter Date: 09/08/2024 Gait Training Referral for A mputated right lower limb below knee Referring Physician: Natalee Jennings, [facility], Encounter Date: 12/06/2024 Referring Physician: Natalee garza, [facility], Encounter Date: 12/06/2024 Results Created Date Observation Date Name Description Value Unit Range Abnormal Flag Note LastModifiedBy Organization Detail LastModifiedTime 01/31/2001/30/2023 HbA1c (hemo globi n A1c), blood HbA1c 5.6 Not Available In-Office Order Internal Use Only DO Not Attach Compendium DO Not Attach Compendium, Do Not Delete/merge, [id number] 01/30/2023 12:02:12 03/20/2003/21/2023 NT-NM OBNP nt-probnp 2423 pg/mL 0-130 above high [...] enden t 300 pg/mL Not Available [facility] ([facility]) [address] [place], [address], 03/21/2023 16:14:02 03/20/20 23 03/21/2023 TSH+F REE T4 TSH 10.100 uIU/m L 0.450- 4.500 above high normal Not Available [facility] ([facility]) [address] [place], [address], 03/21/2023 16:14:03 03/20/20 23 03/21/2023 TSH+F REE T4 T4,free(dire ct) 1.04 NG/dL 0.82-1 .77 Not Available [facility] ([facility]) [address] [place], [address], 03/21/2023 16:14:03 03/20/20 23 03/21/2023 LIPID PANEL WITH LDL/H DL RATIO cholesterol, total 164 mg/dL 100-19 9 Not Available [facility] ([facility]) [address] [place], [address], 03/21/2023 16:14:04 03/20/20 23 03/21/2023 LIPID PANEL WITH LDL/H DL RATIO triglyceride s 56 mg/dL 0-149 Not Available [facility] ([facility]) [address] [place], [address], 03/21/2023 16:14:04 03/20/20 23 03/21/2023 LIPID PANEL WITH LDL/H DL RATIO HDL cholesterol 76 mg/dL >39 Not Available [facility] ([facility]) [address] [place], [address], 03/21/2023 16:14:04 03/20/20 23 03/21/2023 LIPID PANEL WITH LDL/H DL RATIO VLDL cholesterol aly 11 mg/dL 5-40 Not Available [facility] ([facility]) [address] [place], [address], 03/21/2023 16:14:04 03/20/20 23 03/21/2023 LIPID PANEL WITH LDL/H DL RATIO LDL chol calc ([facility]) 77 mg/dL 0-99 Not Available [facility] ([facility]) [address] [place], [address], 03/21/2023 16:14:04 03/20/20 23 03/21/2023 LIPID PANEL WITH LDL/H DL RATIO LDL/HDL ratio 1.0 ratio 0.0-3. 2 LDL/H DL Ratio Men Women 1/2 Avg.R isk 1.0 1.5 Avg.R isk 3.6 3.2 2X Avg.R isk 6.2 5.0 3X Avg.R isk 8.0 6.1 Not Available [facility] ([facility]) [address] [facility] [place], [address], 03/21/2023 16:14:04 03/20/20 23 03/21/2023 COMP. METAB OLIC PANEL (14) glucose 110 mg/dL 70-99 above high normal Not Available [facility] ([facility]) [address] [facility] [place], [address], 03/21/2023 16:14:05 03/20/20 23 03/21/2023 COMP. METAB OLIC PANEL (14) BUN 11 mg/dL 6-20 Not Available [facility] ([facility]) [address] [facility] [place], [address], 03/21/2023 16:14:05 03/20/20 23 03/21/2023 COMP. METAB OLIC PANEL (14) creatinine 1.37 mg/dL 0.57-1 .00 above high normal Not Available [facility] ([facility]) [address] [place], [address], 03/21/2023 16:14:05 03/20/20 23 03/21/2023 COMP. METAB OLIC PANEL (14) eGFR 53 mL/mi n/1.7 3 >59 below low normal Not Available [facility] ([facility]) [address] [place], [address], 03/21/2023 16:14:05 03/20/20 23 03/21/2023 COMP. METAB OLIC PANEL (14) BUN/creatini ne ratio 8 9-23 below low normal Not Available [facility] ([facility]) [address] [place], [address], 03/21/2023 16:14:05 03/20/20 23 03/21/2023 COMP. METAB OLIC PANEL (14) sodium 142 mmol/ L 134-14 4 Not Available [facility] ([facility]) [address] [facility] [place], [address], 03/21/2023 16:14:05 03/20/20 23 03/21/2023 COMP. METAB OLIC PANEL (14) potassium 3.6 mmol/ L 3.5-5. 2 Not Available [facility] ([facility]) [address] [facility] [place], [address], 03/21/2023 16:14:05 03/20/20 23 03/21/2023 COMP. METAB OLIC PANEL (14) chloride 108 mmol/ L 96-106 above high normal Not Available [facility] ([facility]) [address] [facility] [place], [address], 03/21/2023 16:14:05 03/20/20 23 03/21/2023 COMP. METAB OLIC PANEL (14) carbon dioxide, total 23 mmol/ L 20-29 Not Available [facility] ([facility]) [address] [facility] [place], [address], 03/21/2023 16:14:05 03/20/20 23 03/21/2023 COMP. METAB OLIC PANEL (14) calcium 8.0 mg/dL 8.7-10 .2 below low normal Not Available [facility] ([facility]) [address] [facility] [place], [address], 03/21/2023 16:14:05 03/20/20 23 03/21/2023 COMP. METAB OLIC PANEL (14) protein, total 5.6 g/dL 6.0-8. 5 below low normal Not Available [facility] ([facility]) [address] [facility] [place], [address], 03/21/2023 16:14:05 03/20/20 23 03/21/2023 COMP. METAB OLIC PANEL (14) albumin 2.2 g/dL 3.9-5. 0 below low normal Not Available [facility] ([facility]) [address] [place], [address], 03/21/2023 16:14:05 03/20/20 23 03/21/2023 COMP. METAB OLIC PANEL (14) globulin, total 3.4 g/dL 1.5-4. 5 Not Available [facility] ([facility]) [address] [place], [address], 03/21/2023 16:14:05 03/20/20 23 03/21/2023 COMP. METAB OLIC PANEL (14) A/G ratio 0.6 1.2-2. 2 below low normal Not Available [facility] ([facility]) [address] [place], [address], 03/21/2023 16:14:05 03/20/20 23 03/21/2023 COMP. METAB OLIC PANEL (14) bilirubin, total 0.2 mg/dL 0.0-1. 2 Not Available [facility] ([facility]) [address] [place], [address], 03/21/2023 16:14:05 03/20/20 23 03/21/2023 COMP. METAB OLIC PANEL (14) alkaline phosphatase 409 IU/L 44-121 above high normal Not Available [facility] ([facility]) [address] [place], [address], 03/21/2023 16:14:05 03/20/20 23 03/21/2023 COMP. METAB OLIC PANEL (14) AST (SGOT) 32 IU/L 0-40 Not Available [facility] ([facility]) [address] [place], [address], 03/21/2023 16:14:05 03/20/20 23 03/21/2023 COMP. METAB OLIC PANEL (14) ALT (SGPT) 32 IU/L 0-32 Not Available [facility] ([facility]) [address] [facility], [place], [address], 03/21/2023 16:14:05 03/20/20 23 03/21/2023 CK creatine kinase,total 443 U/L 32-182 above high normal Not Available [facility] ([facility]) [address] [facility], [place], [address], 03/21/2023 16:14:07 03/20/20 23 03/21/2023 CBC WITH DIFFE RENTI AL/PL ATELE T WBC 6.0 x10e3 /uL 3.4-10 .8 Not Available [facility] ([facility]) [address] [facility], [place], [address], 03/21/2023 16:14:08 03/20/20 23 03/21/2023 CBC WITH DIFFE RENTI AL/PL ATELE T RBC 3.69 x10e6 /uL 3.77-5 .28 below low normal Not Available [facility] ([facility]) [address] [facility], [place], [address], 03/21/2023 16:14:08 03/20/20 23 03/21/2023 CBC WITH DIFFE RENTI AL/PL ATELE T hemoglobin 9.8 g/dL 11.1-1 5.9 below low normal Not Available [facility] ([facility]) [address] [place], [address], 03/21/2023 16:14:08 03/20/20 23 03/21/2023 CBC WITH DIFFE RENTI AL/PL ATELE T hematocrit 31.7 % 34.0-4 6.6 below low normal Not Available [facility] ([facility]) [address] [place], [address], 03/21/2023 16:14:08 03/20/20 23 03/21/2023 CBC WITH DIFFE RENTI AL/PL ATELE T MCV 86 fL 79-97 Not Available [facility] ([facility]) [address] [facility], [place], [address], 03/21/2023 16:14:08 03/20/20 23 03/21/2023 CBC WITH DIFFE RENTI AL/PL ATELE T MCH 26.6 pg 26.6-3 3.0 Not Available [facility] ([facility]) [address] [facility], [place], [address], 03/21/2023 16:14:08 03/20/20 23 03/21/2023 CBC WITH DIFFE RENTI AL/PL ATELE T MCHC 30.9 g/dL 31.5-3 5.7 below low normal Not Available [facility] ([facility]) [address] [facility], [place], [address], 03/21/2023 16:14:08 03/20/20 23 03/21/2023 CBC WITH DIFFE RENTI AL/PL ATELE T RDW 15.5 % 11.7-1 5.4 above high normal Not Available [facility] ([facility]) [address] [facility], [place], [address], 03/21/2023 16:14:08 03/20/20 23 03/21/2023 CBC WITH DIFFE RENTI AL/PL ATELE T platelets 505 x10e3 /uL 150-45 0 above high normal Not Available [facility] ([facility]) [address] [facility], [place], [address], 03/21/2023 16:14:08 03/20/20 23 03/21/2023 CBC WITH DIFFE RENTI AL/PL ATELE T neutrophils 67 % notest ab. Not Available [facility] ([facility]) [address] [facility], [place], [address], 03/21/2023 16:14:08 03/20/20 23 03/21/2023 CBC WITH DIFFE RENTI AL/PL ATELE T lymphs 21 % notest ab. Not Available [facility] ([facility]) [address] [facility], [place], [address], 03/21/2023 16:14:08 03/20/20 23 03/21/2023 CBC WITH DIFFE RENTI AL/PL ATELE T monocytes 7 % notest ab. Not Available [facility] ([facility]) [address] [facility], [place], [address], 03/21/2023 16:14:08 03/20/20 23 03/21/2023 CBC WITH DIFFE RENTI AL/PL ATELE T eos 5 % notest ab. Not Available [facility] ([facility]) [address] [facility], [place], [address], 03/21/2023 16:14:08 03/20/20 23 03/21/2023 CBC WITH DIFFE RENTI AL/PL ATELE T basos 0 % notest ab. Not Available [facility] ([facility]) [address] [facility], [place], [address], 03/21/2023 16:14:08 03/20/20 23 03/21/2023 CBC WITH DIFFE RENTI AL/PL ATELE T neutrophils (absolute) 4.0 x10e3 /uL 1.4-7. 0 Not Available [facility] ([facility]) [address] [facility], [place], [address], 03/21/2023 16:14:08 03/20/20 23 03/21/2023 CBC WITH DIFFE RENTI AL/PL ATELE T lymphs (absolute) 1.3 x10e3 /uL 0.7-3. 1 Not Available [facility] ([facility]) [address] [facility], [place], [address], 03/21/2023 16:14:08 03/20/20 23 03/21/2023 CBC WITH DIFFE RENTI AL/PL ATELE T monocytes(ab solute) 0.4 x10e3 /uL 0.1-0. 9 Not Available [facility] ([facility]) [address] [facility], [place], [address], 03/21/2023 16:14:08 03/20/20 23 03/21/2023 CBC WITH DIFFE RENTI AL/PL ATELE T eos (absolute) 0.3 x10e3 /uL 0.0-0. 4 Not Available [facility] ([facility]) [address] [facility], [place], [address], 03/21/2023 16:14:08 03/20/20 23 03/21/2023 CBC WITH DIFFE RENTI AL/PL ATELE T baso (absolute) 0.0 x10e3 /uL 0.0-0. 2 Not Available [facility] ([facility]) [address] [facility], [place], [address], 03/21/2023 16:14:08 03/20/20 23 03/21/2023 CBC WITH DIFFE RENTI AL/PL ATELE T immature granulocytes 0 % notest ab. Not Available [facility] ([facility]) [address] [facility], [place], [address], 03/21/2023 16:14:08 03/20/20 23 03/21/2023 CBC WITH DIFFE RENTI AL/PL ATELE T immature grans (abs) 0.0 x10e3 /uL 0.0-0. 1 Not Available [facility] ([facility]) [address] [place], [address], 03/21/2023 16:14:08 03/20/20 23 03/21/2023 CREAT INE KINAS E (CK), MB creatine kinase (CK), mb 3.4 NG/mL 0.0-5. 3 Not Available [facility] ([facility]) [address] [place], [address], 03/21/2023 16:14:01 02/22/20 24 02/23/2024 Diffe renti [...] 100 x10E6 /L 02/22 12:36 AM CDT [facility] [...] dina BLOOD Y 02/22 12:36 AM CDT [facility] Not Available Not Available 02/21/2025 09:50:41 02/22/20 24 02/23/2024 Cell count and Diffe renti al panel - Body fluid color of body fluid PINK Fluid Color PINK 02/22 12:36 AM CDT [facility] Not Available Not Available 02/21/2025 09:50:41 02/22/20 24 02/23/2024 Cell count and Diffe renti al panel - Body fluid nucleated cells [#/volume] in body fluid by manual count 4376 text: <=200 x10e6/ L high Total Nucle ated Cells Fluid 4,376 (H) <=200 x10E6 /L 02/22 12:36 AM CDT [facility] Not Available Not Available 02/21/2025 09:50:41 02/22/20 24 02/23/2024 Cell count and Diffe renti al panel - Body fluid erythrocytes [#/volume] in body fluid by automated count text: refere nce range not establ ished x10e6/ L RBC Count Fluid <2,00 0 Refer ence Range Not Estab lishe d x10E6 /L 02/22 12:36 AM T [facility] Not Available Not Available [...] 24 03/22/2024 Fungu s ident ified in [place] te by Cultu re microorganis m identified in specimen by culture No fungus isolat ed Cultu re No fungu s isola christina CHARLES 03/22 7:13 AM CDT [facility] Not Available Not Available 02/21/2025 09:50:41 02/22/20 24 03/22/2024 Fungu s ident ified in [place] te by Cultu re fungus identified in specimen by fungus stain No yeast or hyphae seen Fungu s Stain No yeast or hypha e seen 03/22 7:13 AM CDT [facility] Not Available Not Available 02/21/2025 09:50:41 02/22/20 24 03/22/2024 Fungu s ident ified in [place] te by Cultu re interpretati on and [...] Red blood cells 02/25 5:53 AM CDT [facility] Not Available Not Available 02/21/2025 09:50:41 02/22/20 24 02/26/2024 Bacte mima ident ified in Body fluid by Cultu re interpretati on and review of laboratory results Normal Not Available Not Available 02/02 09:50:41 02/22/20 24 02/29/2024 Bacte mima ident ified in [place] te by Anaer obe cultu re microorganis m identified in specimen by culture No anaero bic organi sms isolat ed Cultu re No anaer obic organ isms isola christina CHARLES 02/28 1:30 PM CDT [facility] Not Available Not Available 02/21/2025 09:50:41 02/22/20 24 02/29/2024 Bacte mima ident ified in [place] by Anaer obe cultu re interpretati on and review of laboratory results Normal Not Available Not Available 02/02 09:50:41 02/22/20 24 04/05/2024 Mycob acter ium sp ident ified in Speci men by Organ ism speci fic cultu re microorganis m identified in specimen by culture No acid-f ast bacill us isolat ed Cultu re No acid- fast bacil nitin isola christina 04/05 7:20 AM CDT [facility] Not Available Not Available 02/21/2025 09:50:41 02/22/20 24 04/05/2024 Mycob acter ium sp ident ified in Speci men by Organ ism speci fic cultu re microscopic observation [presence] in specimen by acid fast stain No acid-f ast bacill i seen AFB Smear No acid- fast bacil li seen 04/05 7:20 AM CDT [facility] Not Available Not Available 02/21/2025 09:50:41 02/22/20 24 04/05/2024 Mycob acter ium sp ident ified in Speci men by Organ ism speci fic cultu re interpretati on and review of laboratory results Normal Not Available Not Available 02/02 09:50:41 02/22/20 24 02/28/2024 Bacte mima ident ified in Blood by Cultu re microorganis m identified in specimen by culture No growth day 5 Cultu re No growt h day 5 CHARLES 02/27 2:02 AM CDT [facility] Not Available Not Available 02/21/2025 09:50:40 02/22/20 24 02/28/2024 Bacte mima ident ified in Blood by Cultu re interpretati on and review of laboratory results Normal Not Available Not Available 02/02 09:50:40 02/22/20 24 02/23/2024 Chori ogona dotro pin.b eta subun it [Unit s/vol ume] in Serum or Plasm a choriogonado tropin.intac t+beta subunit [units/volum e] in serum or plasma text: mIU/mL Beta- hCG Total Quant itati ve <3 mIU/m L 02/21 11:26 PM CDT [facility] Not Available Not Available 02/21/2025 09:50:40 02/22/20 24 02/28/2024 Bacte mima ident ified in Blood by Cultu re microorganis m identified in specimen by culture No growth day 5 Cultu re No growt h day 5 CHARLES 02/27 2:02 AM CDT [facility] Not Available Not Available 02/21/2025 09:50:40 02/22/20 24 02/28/2024 Bacte mima ident ified in Blood by Cultu re interpretati on and review of laboratory results Normal Not Available Not Available 02/02 09:50:40 02/22/20 24 02/23/2024 Phosp hate [Mass /volu me] in Serum or Plasm a phosphate [mass/volume ] in serum or plasma 5 mg/dL low: 2.9mg/ dLhigh : 5.1mg/ dL Phosp horus 5.0 2.9 - 5.1 mg/dL 02/21 11:21 PM CDT [facility] Not Available Not Available 02/21/2025 09:50:40 02/22/20 24 02/23/2024 Phosp hate [Mass /volu me] in Serum or Plasm a interpretati on and review of laboratory results Normal Not Available Not Available 02/02 09:50:40 02/22/20 24 02/23/2024 Magne sium [Mass /volu me] in Serum or Plasm a magnesium [mass/volume ] in serum or plasma 2.2 mg/dL low: 1.6mg/ dLhigh : 2.6mg/ dL Magne sium 2.2 1.6 - 2.6 mg/dL 02/21 11:21 PM CDT [facility] Not Available Not Available 02/21/2025 09:50:40 02/22/20 24 02/23/2024 Magne sium [Mass /volu me] in Serum or Plasm a interpretati on and review of laboratory results Normal Not Available Not Available 02/02 09:50:40 02/22/20 24 02/23/2024 Lacta te [Mole s/vol ume] in Serum or Plasm a lactate [moles/volum e] in serum or plasma 1.3 mmol/ L high: 2mmol/ L Lacti c Acid- Stat 1.3 <=2.0 mmol/ L 02/21 11:06 PM CDT [facility] [place] Not Available Not Available 02/21/2025 09:50:40 02/22/20 24 02/23/2024 Lacta te [Mole s/vol ume] in Serum or Plasm a interpretati on and review of laboratory results Normal Not Available Not Available 02/02 09:50:40 02/22/20 24 02/23/2024 Compr ehens talia metab olic 1999 panel - Serum or Plasm a urea nitrogen [mass/volume ] in serum or plasma 21 mg/dL low: 7mg/dL high: 26mg/d L BUN 21 7 - 26 mg/dL 02/21 11:21 PM CDT [facility] IRA Not Available Not Available 02/21/2025 09:50:40 02/22/20 24 02/23/2024 Compr ehens [place] metab olic 1999 panel - Serum or Plasm a creatinine [mass/volume ] in serum or plasma 4.88 mg/dL low: 0.56mg /dLhig h: 0.96mg /dL high Creat inine 4.88 (H) 0.56 - 0.96 mg/dL 02/21 11:21 PM CDT [facility] Not Available Not Available 02/21/2025 09:50:40 02/22/20 24 02/23/2024 Compr ehens [place] metab olic 1999 panel - Serum or Plasm a sodium [moles/volum e] in serum or plasma 136 mmol/ L low: 136mmo l/Lhig h: 145mmo l/L Sodiu m 136 136 - 145 mmol/ L 02/21 11:21 PM CDT [facility] [place] Not Available Not Available 02/21/2025 09:50:40 02/22/20 24 02/23/2024 Compr ehens [place] metab olic 1999 panel - Serum or Plasm a potassium [moles/volum e] in serum or plasma 4.1 mmol/ L low: 3.5mmo l/Lhig h: 4.5mmo l/L Potas sium 4.1 3.5 - 4.5 mmol/ L 02/21 11:21 PM CDT [facility] [place] Not Available Not Available 02/21/2025 09:50:40 02/22/20 24 02/23/2024 Compr ehens [place] metab olic 1999 panel - Serum or Plasm a chloride [moles/volum e] in serum or plasma 100 mmol/ L low: 98mmol /Lhigh : 107mmo l/L Chlor brodie 100 98 - 107 mmol/ L 02/21 11:21 PM CDT [facility] [place] Not Available Not Available 02/21/2025 09:50:40 02/22/20 24 02/23/2024 Compr ehens [place] metab olic 1999 panel - Serum or Plasm a carbon dioxide, total [moles/volum e] in serum or plasma 26 mmol/ L low: 22mmol /Lhigh : 29mmol /L CO2 26 22 - 29 mmol/ L 02/21 11:21 PM CDT [facility] [place] Not Available Not Available 02/21/2025 09:50:40 02/22/20 24 02/23/2024 Compr [employer] [place] metab olic 1999 panel - Serum or Plasm a glucose [mass/volume ] in serum or plasma 261 mg/dL low: 70mg/d Lhigh: 115mg/ dL high Gluco se 261 (H) 70 - 115 mg/dL 02/21 11:21 PM CDT [facility] [place] Not Available Not Available 02/21/2025 09:50:40 02/22/20 24 02/23/2024 Compr ehens [place] metab olic 1999 panel - Serum or Plasm a calcium [moles/volum e] in serum or plasma 8.8 mg/dL low: 8.4mg/ dLhigh : 10.2mg /dL Calci um 8.8 8.4 - 10.2 mg/dL 02/21 11:21 PM CDT [facility] [place] Not Available Not Available 02/21/2025 09:50:40 02/22/20 24 02/23/2024 Compr ehens [place] metab olic 2000 panel - Serum or Plasm a protein [mass/volume ] in serum or plasma 8.1 g/dL low: 6g/dLh igh: 8.3g/d L Prote in Total 8.1 6.0 - 8.3 g/dL 02/21 11:21 PM CDT [facility] [place] Not Available Not Available 02/21/2025 09:50:40 02/22/20 24 02/23/2024 Compr ehens [place] metab olic 2000 panel - Serum or Plasm a albumin [mass/volume ] in serum or plasma by bromocresol green (bcg) dye binding method 1.5 g/dL low: 3.4g/d Lhigh: 5g/dL low Album in 1.5 (L) 3.4 - 5.0 g/dL 02/21 11:21 PM CDT [facility] [place] Not Available Not Available 02/21/2025 09:50:40 02/22/20 24 02/23/2024 Compr ehens [place] metab olic 2000 panel - Serum or Plasm a bilirubin.to ira [mass/volume ] in serum or plasma 0.2 mg/dL low: 0.2mg/ dLhigh : 1.2mg/ dL Bilir ubin Total 0.2 0.2 - 1.2 mg/dL 02/21 11:21 PM CDT [facility] [place] Not Available Not Available 02/21/2025 09:50:40 02/22/20 24 02/23/2024 Compr ehens [place] metab olic 2000 panel - Serum or Plasm a alkaline phosphatase [enzymatic activity/vol ume] in serum or plasma 221 U/L low: 40U/Lh igh: 150U/L high Alkal ine Phosp hatas e 221 (H) 40 - 150 U/L 02/21 11:21 PM CDT [facility] [place] Not Available Not Available 02/21/2025 09:50:40 02/22/20 24 02/23/2024 Compr ehens [place] metab olic 2000 panel - Serum or Plasm a alanine aminotransfe rase [enzymatic activity/vol ume] in serum or plasma by no addition of P-5'-P 11 U/L low: 5U/Lhi gh: 55U/L ALT 11 5 - 55 U/L 02/21 11:21 PM CDT [facility] [place] Not Available Not Available 02/21/2025 09:50:40 02/22/20 24 02/23/2024 Compr ehens [place] metab olic 2000 panel - Serum or Plasm a aspartate aminotransfe rase [enzymatic activity/vol ume] in serum or plasma 7 U/L low: 5U/Lhi gh: 34U/L AST 7 5 - 34 U/L 02/21 11:21 PM CDT [facility] [place] Not Available Not Available 02/21/2025 09:50:40 02/22/20 24 02/23/2024 Compr ehens [place] metab olic 2000 panel - Serum or Plasm a anion gap 10 low: 6high: 16 Anion Gap 10 6 - 16 02/21 11:21 PM CDT [facility] [place] Not Available Not Available 02/21/2025 09:50:40 02/22/20 24 02/23/2024 Compr ehens [place] metab olic 2000 panel - Serum or Plasm a urea nitrogen/cre atinine [mass ratio] in serum or plasma 4 low: 7high: 23 low BUN/C reati nine Ratio 4 (L) 7 - 23 02/21 11:21 PM CDT [facility] [place] Not Available Not Available 02/21/2025 09:50:40 02/22/20 24 02/23/2024 Compr ehens [place] metab olic 2000 panel - Serum or Plasm a osmolality calculated 294 text: 275 - 295 mOsm/k g Osmol ality Calcu lated 294 275 - 295 mOsm/ kg 02/21 11:21 PM CDT [facility] [place] Not Available Not Available 02/21/2025 09:50:40 02/22/20 24 02/23/2024 Compr ehens [place] metab olic 2000 panel - Serum or Plasm a albumin/glob ulin ratio 0.2 low: 1.1hig h: 2.3 low Album in/Gl obuli n Ratio 0.2 (L) 1.1 - 2.3 02/21 11:21 PM CDT [facility] [employer] [facility] IRA Not Available Not Available 02/21/2025 09:50:40 02/22/20 24 02/23/2024 Compr ehens [place] metab olic 2000 panel - Serum or Plasm a glomerular filtration rate [volume rate/area] in serum, plasma or blood by creatinine-b ased formula (CKD-epi)/1. 73 sq M 12 text: >=90 mL/min /1.73 m2 low eGFR by CKD-E PI 12 (L) >=90 mL/mi n/1.7 3 m2 02/21 11:21 PM CDT [facility] Not Available Not Available 02/21/2025 09:50:40 02/22/2002/23/2024 Compr ehens [place] metab olic 2000 panel - Serum or Plasm a interpretati on and review of laboratory results Abnorm al Not Available Not Available 09:50:40 02/22/20 24 02/23/2024 CBC W Auto Diffe renti al panel - Blood leukocytes [#/volume] in blood by automated count 18 text: 4.0 - 10.7 x10e9/ L high WBC 18.0 (H) 4.0 - 10.7 x10E9 /L 02/22 1:01 AM [facility] Not Available Not Available 02/21/2025 09:50:40 02/22/2002/23/2024 CBC W Auto Diffe renti al panel - Blood erythrocytes [#/volume] in blood by automated count 3.23 text: 3.90 - 5.20 x10e12 /L low RBC Count 3.23 (L) 3.90 - 5.20 x10E1 2/L 02/22 1:01 AM T [facility] [employer] [facility] IRA Not Available Not Available 02/21/2025 09:50:40 02/22/20 24 02/23/2024 CBC W Auto Diffe renti al panel - Blood hemoglobin [mass/volume ] in blood 9.6 g/dL low: 11.9g/ dLhigh : 15.8g/ dL low Hemog lobin 9.6 (L) 11.9 - 15.8 g/dL 02/22 1:01 AM [facility] Not Available Not Available 02/21/2025 09:50:40 02/22/20 24 02/23/2024 CBC W Auto Diffe renti al panel - Blood hematocrit [volume fraction] of blood by automated count 30.5 % low: 34.8%h igh: 46.1% low Hemat ocrit 30.5 (L) 34.8 - 46.1 % 02/22 1:01 AM [facility] IRA Not Available Not Available 02/21/2025 09:50:40 02/22/2002/23/2024 CBC W Auto Diffe renti al panel - Blood MCV [entitic mean volume] in red blood cells by automated count 94.4 fL low: 80fLhi gh: 98fL MCV 94.4 80.0 - 98.0 fL 02/22 1:01 AM [facility] IRA Not Available Not Available 02/21/2025 09:50:40 02/22/20 24 02/23/2024 CBC W Auto Diffe hanhti al panel - Blood MCH [entitic mass] by automated count 29.7 pg low: 26.7pg high: 33.6pg MCH 29.7 26.7 - 33.6 pg 02/22 1:01 AM [facility] Not Available Not Available 02/21/2025 09:50:40 02/22/20 24 02/23/2024 CBC W Auto Diffe renti al panel - Blood MCHC [entitic mass/volume] in red blood cells by automated count 31.5 g/dL low: 31.7g/ dLhigh : 36.3g/ dL low MCHC 31.5 (L) 31.7 - 36.3 g/dL 02/22 1:01 AM [facility] Not Available Not Available 02/21/2025 09:50:40 02/22/20 24 02/23/2024 CBC W Auto Diffe renti al panel - Blood erythrocyte [distwidth] in red blood cells by automated count 13.7 % low: 11.3%h igh: 14.8% RDW-C V 13.7 11.3 - 14.8 % 02/22 1:01 AM [facility] Not Available Not Available 02/21/2025 09:50:40 02/22/20 24 02/23/2024 CBC W Auto Diffe renti al panel - Blood platelets [#/volume] in blood by automated count 485 text: 150 - 420 x10e9/ L high Plate let Count 485 (H) 150 - 420 x10E9 /L 02/22 1:01 AM [facility] [employer] [facility] IRA Not Available Not Available 02/21/2025 09:50:40 02/22/2002/23/2024 CBC W Auto Diffe renti al panel - Blood platelet [entitic mean volume] in blood by automated count 9.1 fL low: 7.8fLh igh: 11.4fL MPV 9.1 7.8 - 11.4 fL 02/22 1:01 AM [facility] [employer] [facility] IRA Not Available Not Available 02/21/2025 09:50:40 02/22/20 24 02/23/2024 CBC W Auto Diffe renti al panel - Blood nucleated erythrocytes /leukocytes [ratio] in blood by automated count 0.4 text: <=0.0 /100 WBC high NRBC 0.4 (H) <=0.0 /100 WBC 02/22 1:01 AM [facility] [employer] [facility] IRA Not Available Not Available 02/21/2025 09:50:40 02/22/2002/23/2024 CBC W Auto Diffe renti al panel - Blood interpretati on and review of laboratory results Abnorm al Not Available Not Available 09:50:40 02/23/2002/23/2024 Gluco se [Mass /volu me] in Arter ial blood glucose [mass/volume ] in capillary blood by glucometer 227 mg/dL low: 70mg/d Lhigh: 115mg/ dL high Gluco se WB/PO C 227 (H) 70 - 115 mg/dL 02/22 5:59 PM CDT [facility] IRA Not Available Not Available 02/21/2025 09:50:43 02/23/20 24 02/23/2024 Gluco se [Mass /volu me] in Arter ial blood specimen source identified Cap Finger stick Speci men Type Cap Tanja rstic k 02/22 5:59 PM CDT [facility] [place] Not Available Not Available 02/21/2025 09:50:43 02/23/20 24 02/23/2024 Gluco se [Mass /volu me] in Arter ial blood interpretati on and review of laboratory results Abnorm al Not Available Not Available 09:50:43 02/23/20 24 02/23/2024 Gluco se [Mass /volu me] in Arter ial blood glucose [mass/volume ] in capillary blood by glucometer 201 mg/dL low: 70mg/d Lhigh: 115mg/ dL high Gluco se WB/PO C 201 (H) 70 - 115 mg/dL 02/22 12:38 PM CDT [facility] IRA Not Available Not Available 02/21/2025 09:50:43 02/23/20 24 02/23/2024 Gluco se [Mass /volu me] in Arter ial blood specimen source identified Cap Finger stick Speci men Type Cap Moisese rstic k 02/22 12:38 PM CDT [facility] IRA Not Available Not Available 02/21/2025 09:50:43 02/23/20 24 02/23/2024 Gluco se [Mass /volu me] in Arter ial blood interpretati on and review of laboratory results Abnorm al Not Available Not Available 09:50:43 02/23/20 24 02/24/2024 Hepat itis B virus surfa ce Ag [Pres ence] in Serum hepatitis B virus surface Ag [presence] in serum or plasma by immunoassay Non-re active text: non-re active Hepat itis B Virus Surfa ce Antig en Non-r eacti ve Non-r eacti ve 02/23 1:30 AM CDT [facility] IRA Not Available Not Available 02/21/2025 09:50:43 02/23/20 24 02/24/2024 Hepat itis B virus surfa ce Ag [Pres ence] in Serum interpretati on and review of laboratory results Normal Not Available Not Available 02/02 09:50:43 02/23/20 24 02/23/2024 C react talia prote in [Mass /volu me] in Serum or Plasm a C reactive protein [mass/volume ] in serum or plasma 8.3 mg/dL high: 0.5mg/ dL high C-Parvin ctive Prote in 8.3 (H) <=0.5 mg/dL 02/22 8:14 AM CDT [facility] IRA Not Available Not Available 02/21/2025 09:50:43 02/23/20 24 02/23/2024 C react talia prote in [Mass /volu me] in Serum or Plasm a interpretati on and review of laboratory results Abnorm al Not Available Not Available 09:50:43 02/23/20 24 02/23/2024 Eryth rocyt e sedim entat ion rate [[place]] in Red Blood Cells by Favio lynn metho d erythrocyte sedimentatio n rate [velocity] in red blood cells by westmaciejren method 116 text: 0 - 20 mm/HR high Eryth rocyt e Sedim entat ion Rate Favio lynn 116 (H) 0 - 20 MM/HR 02/22 7:54 AM CDT [facility] IRA Not Available Not Available 02/21/2025 09:50:43 02/23/20 24 02/23/2024 Eryth rocyt e sedim entat ion rate [[place]] in Red Blood Cells by Favio lynn metho d interpretati on and review of laboratory results Abnorm al Not Available Not Available 09:50:43 02/23/20 24 02/23/2024 Vanco mycin [Mass /volu me] in Serum or Plasm a vancomycin [mass/volume ] in serum or plasma 21.5 ug/mL text: therap eutic ranges not establ ished for random specim ens Vanco mycin Pam bernabe 21.5 Thera peuti c Range s not estab lishe d for rando m speci mens ug/mL 02/22 8:37 AM CDT [facility] IRA Not Available Not Available 02/21/2025 09:50:43 02/23/20 24 02/23/2024 Vanco mycin [Mass /volu me] in Serum or Plasm a Unknown Analyte See instit ution protoc ol. See insti tutio n dameon col. Not Available Not Available 02/21/2025 09:50:43 02/23/20 24 02/23/2024 Vanco mycin [Mass /volu me] in Serum or Plasm a interpretati on and review of laboratory results Normal Not Available Not Available 02/02 09:50:43 02/23/20 24 02/23/2024 CBC W Auto Diffe renti al panel - Blood leukocytes [#/volume] in blood by automated count 16.8 text: 4.0 - 10.7 x10e9/ L high WBC 16.8 (H) 4.0 - 10.7 x10E9 /L 02/22 7:47 AM CDT [facility] IRA Not Available Not Available 02/21/2025 09:50:42 02/23/20 24 02/23/2024 CBC W Auto Diffe renti al panel - Blood erythrocytes [#/volume] in blood by automated count 3.2 text: 3.90 - 5.20 x10e12 /L low RBC Count 3.20 (L) 3.90 - 5.20 x10E1 2/L 02/22 7:47 AM CDT [facility] IRA Not Available Not Available 02/21/2025 09:50:42 02/23/20 24 02/23/2024 CBC W Auto Diffe renti al panel - Blood hemoglobin [mass/volume ] in blood 9.7 g/dL low: 11.9g/ dLhigh : 15.8g/ dL low Hemog lobin 9.7 (L) 11.9 - 15.8 g/dL 02/22 7:47 AM CDT [facility] IRA Not Available Not Available 02/21/2025 09:50:42 02/23/20 24 02/23/2024 CBC W Auto Diffe renti al panel - Blood hematocrit [volume fraction] of blood by automated count 30.4 % low: 34.8%h igh: 46.1% low Hemat ocrit 30.4 (L) 34.8 - 46.1 % 02/22 7:47 AM [facility] Not [facility] Not Available 02/21/2025 09:50:42 02/23/20 24 02/23/2024 CBC W Auto Diffe renti al panel - Blood MCV [entitic mean volume] in red blood cells by automated count 95 fL low: 80fLhi gh: 98fL MCV 95.0 80.0 - 98.0 fL 02/22 7:47 AM [facility] Not Available Not Available 02/21/2025 09:50:42 02/23/20 24 02/23/2024 CBC W Auto Diffe renti al panel - Blood MCH [entitic mass] by automated count 30.3 pg low: 26.7pg high: 33.6pg MCH 30.3 26.7 - 33.6 pg 02/22 7:47 AM [facility] Not Available Not Available 02/21/2025 09:50:42 02/23/20 24 02/23/2024 CBC W Auto Diffe renti al panel - Blood MCHC [entitic mass/volume] in red blood cells by automated count 31.9 g/dL low: 31.7g/ dLhigh : 36.3g/ dL MCHC 31.9 31.7 - 36.3 g/dL 02/22 7:47 AM [facility] Not Available Not Available 02/21/2025 09:50:42 02/23/20 24 02/23/2024 CBC W Auto Diffe renti al panel - Blood erythrocyte [distwidth] in red blood cells by automated count 14 % low: 11.3%h igh: 14.8% RDW-C V 14.0 11.3 - 14.8 % 02/22 7:47 AM [facility] Not Available Not Available 02/21/2025 09:50:42 02/23/20 24 02/23/2024 CBC W Auto Diffe renti al panel - Blood platelets [#/volume] in blood by automated count 422 text: 150 - 420 x10e9/ L high Plate let Count 422 (H) 150 - 420 x10E9 /L 02/22 7:47 AM CDT [facility] IRA Not Available Not Available 02/21/2025 09:50:42 02/23/20 24 02/23/2024 CBC W Auto Diffe renti al panel - Blood platelet [entitic mean volume] in blood by automated count 8.6 fL low: 7.8fLh igh: 11.4fL MPV 8.6 7.8 - 11.4 fL 02/22 7:47 AM CDT [facility] IRA Not Available Not Available 02/21/2025 09:50:42 02/23/20 24 02/23/2024 CBC W Auto Diffe renti al panel - Blood neutrophils/ leukocytes in blood by automated count 63 % low: 41%hig h: 74% Neutr ophil % 63.0 41.0 - 74.0 % 02/22 7:47 AM CDT [facility] IRA Not Available Not Available 02/21/2025 09:50:42 02/23/20 24 02/23/2024 CBC W Auto Diffe renti al panel - Blood lymphocytes/ leukocytes in blood by automated count 15.6 % low: 17%hig h: 47% low Lymph ocyte % 15.6 (L) 17.0 - 47.0 % 02/22 7:47 AM CDT [facility] IRA Not Available Not Available 02/21/2025 09:50:42 02/23/20 24 02/23/2024 CBC W Auto Diffe renti al panel - Blood monocytes/le ukocytes in blood by automated count 7.7 % low: 3%high : 11% Monoc yte % 7.7 3.0 - 11.0 % 02/22 7:47 AM CDT [facility] IRA Not Available Not Available 02/21/2025 09:50:42 02/23/20 24 02/23/2024 CBC W Auto Diffe renti al panel - Blood eosinophils/ leukocytes in blood by automated count 10.7 % low: 0%high : 7% high Eosin ophil % 10.7 (H) 0.0 - 7.0 % 02/22 7:47 AM CDT [facility] IRA Not Available Not Available 02/21/2025 09:50:42 02/23/20 24 02/23/2024 CBC W Auto Diffe renti al panel - Blood basophils/le ukocytes in blood by automated count 0.4 % low: 0%high : 1.6% Basop hil % 0.4 0.0 - 1.6 % 02/22 7:47 AM CDT [facility] IRA Not Available Not Available 02/21/2025 09:50:42 02/23/20 24 02/23/2024 CBC W Auto Diffe renti al panel - Blood immature granulocytes /leukocytes in blood by automated count 2.6 % low: 0%high : 1% high Immat ure Granu locyt es % 2.6 (H) 0.0 - 1.0 % 02/22 7:47 AM CDT [facility] IRA Not Available Not Available 02/21/2025 09:50:42 02/23/20 24 02/23/2024 CBC W Auto Diffe renti al panel - Blood neutrophils [#/volume] in blood by automated count 10.6 text: 1.60 - 7.50 x10e9/ L high Neutr ophil Absol [place] 10.60 (H) 1.60 - 7.50 x10E9 /L 02/22 7:47 AM CDT [facility] IRA Not Available Not Available 02/21/2025 09:50:42 02/23/20 24 02/23/2024 CBC W Auto Diffe renti al panel - Blood lymphocytes [#/volume] in blood by automated count 2.62 text: 1.00 - 4.40 x10e9/ L Lymph ocyte Absol [place] 2.62 1.00 - 4.40 x10E9 /L 02/22 7:47 AM CDT [facility] IRA Not Available Not Available 02/21/2025 09:50:42 02/23/20 24 02/23/2024 CBC W Auto Diffe renti al panel - Blood monocytes [#/volume] in blood by automated count 1.3 text: 0.15 - 1.00 x10e9/ L high Monoc yte Absol [place] 1.30 (H) 0.15 - 1.00 x10E9 /L 02/22 7:47 AM CDT [facility] IRA Not Available Not Available 02/21/2025 09:50:42 02/23/20 24 02/23/2024 CBC W Auto Diffe renti al panel - Blood eosinophils [#/volume] in blood 1.8 text: 0.00 - 0.60 x10e9/ L high Eosin ophil Absol [place] 1.80 (H) 0.00 - 0.60 x10E9 /L 02/22 7:47 AM CDT [facility] IRA Not Available Not Available 02/21/2025 09:50:42 02/23/20 24 02/23/2024 CBC W Auto Diffe renti al panel - Blood basophils [#/volume] in blood by automated count 0.06 text: 0.00 - 0.13 x10e9/ L Basop hil Absol [place] 0.06 0.00 - 0.13 x10E9 /L 02/22 7:47 AM CDT [facility] IRA Not Available Not Available 02/21/2025 09:50:42 02/23/20 24 02/23/2024 CBC W Auto Diffe renti al panel - Blood nucleated erythrocytes /leukocytes [ratio] in blood by automated count 0.4 text: <=0.0 /100 WBC high NRBC 0.4 (H) <=0.0 /100 WBC 02/22 7:47 AM CDT [facility] Not Available Not Available 02/21/2025 09:50:42 02/23/20 24 02/23/2024 CBC W Auto Diffe renti al panel - Blood interpretati on and review of laboratory results Abnorm al Not Available Not Available 09:50:42 02/23/20 24 02/23/2024 Magne sium [Mass /volu me] in Serum or Plasm a magnesium [mass/volume ] in serum or plasma 2.2 mg/dL low: 1.6mg/ dLhigh : 2.6mg/ dL Magne sium 2.2 1.6 - 2.6 mg/dL 02/22 8:[facility] Not Available Not Available 02/21/2025 09:50:42 02/23/20 24 02/23/2024 Magne sium [Mass /volu me] in Serum or Plasm a interpretati on and review of laboratory results Normal Not Available Not Available 02/02 09:50:42 02/23/20 24 02/23/2024 Phosp hate [Mass /volu me] in Serum or Plasm a phosphate [mass/volume ] in serum or plasma 5.3 mg/dL low: 2.9mg/ dLhigh : 5.1mg/ dL high Phosp horus 5.3 (H) 2.9 - 5.1 mg/dL 02/22 8:14 AM [facility] Not Available Not Available 02/21/2025 09:50:42 02/23/20 24 02/23/2024 Phosp hate [Mass /volu me] in Serum or Plasm a interpretati on and review of laboratory results Abnorm al Not Available Not Available 09:50:42 02/23/20 24 02/23/2024 Basic metab olic 2000 panel - Serum or Plasm a urea nitrogen [mass/volume ] in serum or plasma 22 mg/dL low: 7mg/dL high: 26mg/d L BUN 22 7 - 26 mg/dL 02/22 8:14 AM [facility] Not Available Not Available 02/21/2025 09:50:42 02/23/20 24 02/23/2024 Basic metab olic 2000 panel - Serum or Plasm a creatinine [mass/volume ] in serum or plasma 5.35 mg/dL low: 0.56mg /dLhig h: 0.96mg /dL high Creat inine 5.35 (H) 0.56 - 0.96 mg/dL 02/22 8:14 AM [facility] Not Available Not Available 02/21/2025 09:50:42 02/23/20 24 02/23/2024 Basic metab olic 1999 panel - Serum or Plasm a sodium [moles/volum e] in serum or plasma 138 mmol/ L low: 136mmo l/Lhig h: 145mmo l/L Sodiu m 138 136 - 145 mmol/ L 02/22 8:14 AM CDT [facility] Not Available Not Available 02/21/2025 09:50:42 02/23/20 24 02/23/2024 Basic metab olic 1999 panel - Serum or Plasm a potassium [moles/volum e] in serum or plasma 4 mmol/ L low: 3.5mmo l/Lhig h: 4.5mmo l/L Potas sium 4.0 3.5 - 4.5 mmol/ L 02/22 8:14 AM CDT [facility] Not Available Not Available 02/21/2025 09:50:42 02/23/20 24 02/23/2024 Basic metab olic 2000 panel - Serum or Plasm a chloride [moles/volum e] in serum or plasma 102 mmol/ L low: 98mmol /Lhigh : 107mmo l/L Chlor brodie 102 98 - 107 mmol/ L 02/22 8:14 AM CDT [facility] Not Available Not Available 02/21/2025 09:50:42 02/23/20 24 02/23/2024 Basic metab olic 1999 panel - Serum or Plasm a carbon dioxide, total [moles/volum e] in serum or plasma 26 mmol/ L low: 22mmol /Lhigh : 29mmol /L CO2 26 22 - 29 mmol/ L 02/22 8:14 AM CDT [facility] Not Available Not Available 02/21/2025 09:50:42 02/23/20 24 02/23/2024 Basic metab olic 2000 panel - Serum or Plasm a glucose [mass/volume ] in serum or plasma 128 mg/dL low: 70mg/d Lhigh: 115mg/ dL high Gluco se 128 (H) 70 - 115 mg/dL 02/22 8:14 AM CDT [facility] Not Available Not Available 02/21/2025 09:50:42 02/23/20 24 02/23/2024 Basic metab olic 2000 panel - Serum or Plasm a calcium [moles/volum e] in serum or plasma 8.5 mg/dL low: 8.4mg/ dLhigh : 10.2mg /dL Calci um 8.5 8.4 - 10.2 mg/dL 02/22 8:14 AM [facility] Not Available Not Available 02/21/2025 09:50:42 02/23/20 24 02/23/2024 Basic metab olic 2000 panel - Serum or Plasm a anion gap 10 low: 6high: 16 Anion Gap 10 6 - 16 02/22 8:14 AM T [facility] IRA Not Available Not Available 02/21/2025 09:50:42 02/23/20 24 02/23/2024 Basic metab olic 2000 panel - Serum or Plasm a urea nitrogen/cre atinine [mass ratio] in serum or plasma 4 low: 7high: 23 low BUN/C reati nine Ratio 4 (L) 7 - 23 02/22 8:14 AM [facility] Not Available Not Available 02/21/2025 09:50:42 02/23/20 24 02/23/2024 Basic metab olic 2000 panel - Serum or Plasm a osmolality calculated 291 text: 275 - 295 mOsm/k g Osmol ality Calcu lated 291 275 - 295 mOsm/ kg 02/22 8:14 AM [facility] Not Available Not Available 02/21/2025 09:50:42 02/23/20 24 02/23/2024 Basic metab olic 2000 panel - Serum or Plasm a glomerular filtration rate [volume rate/area] in serum, plasma or blood by creatinine-b ased formula (CKD-epi)/1. 73 sq M 10 text: >=90 mL/min /1.73 m2 low eGFR by CKD-E PI 10 (L) >=90 mL/mi n/1.7 3 m2 02/22 8:14 AM T [facility] Not Available Not Available 02/21/2025 09:50:42 02/23/20 24 02/23/2024 Basic metab olic 2000 panel - Serum or Plasm a interpretati on and review of laboratory results Abnorm al Not Available Not Available 09:50:42 02/23/20 24 02/23/2024 Hemog lobin A1c/H emogl obin. total in Blood hemoglobin A1C/hemoglob in.total in blood 6.5 % high: 5.6% high Hemog lobin A1c 6.5 (H) <=5.6 % 02/22 9:34 AM CDT [facility] Not Available Not Available 02/21/2025 09:50:42 02/23/20 24 02/23/2024 Hemog lobin A1c/H emogl obin. total in Blood glucose mean value [mass/volume ] in blood estimated from glycated hemoglobin 140 mg/dL Estim dana Stephens ge Gluco se 140 mg/dL 02/22 9:34 AM CDT [facility] Not Available Not Available 02/21/2025 09:50:42 02/23/20 24 02/23/2024 Hemog lobin A1c/H emogl obin. total in Blood interpretati on and review of laboratory results Abnorm al Not Available Not Available 09:50:42 02/23/20 24 02/23/2024 Gluco se [Mass /volu me] in Arter ial blood glucose [mass/volume ] in capillary blood by glucometer 127 mg/dL low: 70mg/d Lhigh: 115mg/ dL high Gluco se WB/PO C 127 (H) 70 - 115 mg/dL 02/22 5:15 AM CDT [facility] Not Available Not Available 02/21/2025 09:50:42 02/23/20 24 02/23/2024 Gluco se [Mass /volu me] in Arter ial blood specimen source identified Cap Finger stick Speci men Type Cap Finge rstic k 02/22 5:15 AM CDT [facility] Not Available Not Available 02/21/2025 09:50:42 02/23/20 24 02/23/2024 Gluco se [Mass /volu me] in Arter ial blood interpretati on and review of laboratory results Abnorm al Not Available Not Available 09:50:42 02/23/2002/23/2024 Urina lysis panel - Urine by Autom ated color UA Yellow text: straw, yellow Color UA Yello w Straw , Yello w 02/22 12:53 AM CDT [facility] Not Available Not Available 02/21/2025 09:50:42 02/23/20 24 02/23/2024 Urina lysis panel - Urine by Autom ated clarity UA Cloudy text: clear abnormal Mirna ty UA [place] y (A) Clear 02/22 12:53 AM CDT [facility] Not Available Not Available 02/21/2025 09:50:42 02/23/20 24 02/23/2024 Urina lysis panel - Urine by Autom ated specific gravity UA 1.013 low: 1.005h igh: 1.03 Speci fic Gravi ty UA 1.013 1.005 - 1.030 02/22 12:53 AM CDT [facility] Not Available Not Available 02/21/2025 09:50:42 02/23/2002/23/2024 Urina lysis panel - Urine by Autom ated pH UA 6 pH low: 5pHhig h: 8pH pH UA 6.0 5.0 - 8.0 pH 02/22 12:53 AM CDT [facility] Not Available Not Available 02/21/2025 09:50:42 02/23/2002/23/2024 Urina lysis panel - Urine by Autom ated protein UA 3+ text: negati ve abnormal Prote in UA 3+ (A) Negat talia 02/22 12:53 AM CDT [facility] Not Available Not Available 02/21/2025 09:50:42 02/23/20 24 02/23/2024 Urina lysis panel - Urine by Autom ated glucose UA 3+ text: negati ve abnormal Gluco se UA 3+ (A) Negat talia 02/22 12:53 AM CDT [facility] Not Available Not Available 02/21/2025 09:50:42 02/23/20 24 02/23/2024 Urina lysis panel - Urine by Autom ated ketone UA Negati ve text: negati ve Keton e UA Negat talia Negat talia 02/22 12:53 AM CDT [facility] Not Available Not Available 02/21/2025 09:50:42 02/23/20 24 02/23/2024 Urina lysis panel - Urine by Autom ated bilirubin UA Negati ve text: negati ve Bilir ubin UA Negat talia Negat talia 02/22 12:53 AM CDT [facility] Not Available Not Available 02/21/2025 09:50:42 02/23/20 24 02/23/2024 Urina lysis panel - Urine by Autom ated blood UA 1+ text: negati ve abnormal Blood UA 1+ (A) Negat talia 02/22 12:53 AM CDT [facility] Not Available Not Available 02/21/2025 09:50:42 02/23/20 24 02/23/2024 Urina lysis panel - Urine by Autom ated nitrite UA Negati ve text: negati ve Nitri te UA Negat talia Negat talia 02/22 12:53 AM CDT [facility] Not Available Not Available 02/21/2025 09:50:42 02/23/20 24 02/23/2024 Urina lysis panel - Urine by Autom ated leukocyte esterase 3+ text: negati ve abnormal Leuko cyte Zelda ase 3+ (A) Negat talia 02/22 12:53 AM CDT [facility] Not Available Not Available 02/21/2025 09:50:42 02/23/20 24 02/23/2024 Urina lysis panel - Urine by Autom ated urobilinogen UA Negati ve text: negati ve mg/dL Urobi linog en UA Negat talia Negat talia mg/dL 02/22 12:53 AM CDT [facility] Not Available Not Available 02/21/2025 09:50:42 02/23/20 24 02/23/2024 Urina lysis panel - Urine by Autom ated RBC UA 51-100 text: none seen, 0-2, 3-5 /hpf abnormal RBC UA 51-10 0 (A) None Seen, 0-2, 3-5 /HPF 02/22 12:53 AM CDT [facility] Not Available Not Available 02/21/2025 09:50:42 02/23/20 24 02/23/2024 Urina lysis panel - Urine by Autom ated WBC UA >100 text: none seen, 0-5 /hpf abnormal WBC UA >100 (A) None Seen, 0-5 /HPF 02/22 12:53 AM CDT [facility] Not Available Not Available 02/21/2025 09:50:42 02/23/20 24 02/23/2024 Urina lysis panel - Urine by Autom ated bacteria UA Trace text: none /hpf abnormal Bacte mima UA Trace (A) None /HPF 02/22 12:53 AM CDT [facility] Not Available Not Available 02/21/2025 09:50:42 02/23/20 24 02/23/2024 Urina lysis panel - Urine by Autom ated yeast budding UA Occasi onal text: none /hpf abnormal Yeast Buddi ng UA Occas ional (A) None /HPF 02/22 12:53 AM CDT [facility] Not Available Not Available 02/21/2025 09:50:42 02/23/20 24 02/23/2024 Urina lysis panel - Urine by Autom ated squamous epithelial cells UA 11-20 text: none seen, 0-2, 3-5 /hpf abnormal Squam ous Epith elial Cells UA 11-20 (A) None Seen, 0-2, 3-5 /HPF 02/22 12:53 AM CDT [facility] Not Available Not Available 02/21/2025 09:50:42 02/23/20 24 02/23/2024 Urina lysis panel - Urine by Autom ated mucus UA 1+ text: /lpf Mucus UA 1+ /LPF 02/22 12:53 AM CDT [facility] Not Available Not Available 02/21/2025 09:50:42 02/23/20 24 02/23/2024 Urina lysis panel - Urine by Autom ated amorphous crystals Rare text: none /hpf abnormal Amorp hous Cryst als Rare (A) None /HPF 02/22 12:53 AM CDT [facility] Not Available Not Available 02/21/2025 09:50:42 02/23/20 24 02/23/2024 Urina lysis panel - Urine by Autom ated Unknown Analyte Not Available Not Available 02/02 09:50:42 02/23/20 24 02/23/2024 Urina lysis panel - Urine by Autom ated interpretati on and review of laboratory results Abnorm al Not Available Not Available 09:50:42 02/23/20 24 02/23/2024 Gluco se [Mass /volu me] in Arter ial blood glucose [mass/volume ] in capillary blood by glucometer 242 mg/dL low: 70mg/d Lhigh: 115mg/ dL high Gluco se WB/PO C 242 (H) 70 - 115 mg/dL 02/22 12:16 AM CDT [facility] Not Available Not Available 02/21/2025 09:50:42 02/23/20 24 02/23/2024 Gluco se [Mass /volu me] in Arter ial blood specimen source identified Cap Finger stick Speci men Type Cap Finge rstic k 02/22 12:16 AM CDT [facility] [employer] [facility] Not Available Not Available 02/21/2025 09:50:42 02/23/20 24 02/23/2024 Gluco se [Mass /volu me] in Arter ial blood interpretati on and review of laboratory results Abnorm al Not Available Not Available 09:50:42 02/23/20 24 02/23/2024 Methi cilli n resis tant Staph yloco ccus aureu s (MRSA ) DNA [Pres ence] in Speci men by RASHAWN with probe detec tion methicillin resistant staphylococc us aureus (MRSA) DNA [presence] in specimen by RASHAWN with probe detection Detect ed text: not detect ed abnormal MRSA DNA by PCR Detec christina (A) Not detec christina 02/22 3:29 AM CDT [facility] Not Available Not Available 02/21/2025 09:50:41 02/23/20 24 02/23/2024 Methi cilli n resis tant Staph yloco ccus aureu s (MRSA ) DNA [Pres ence] in Speci men by RASHAWN with probe detec tion Unknown Analyte Methic illin- resist ant Staphy lococc us aureus (MRSA) DNA is detect ed (presu med coloni zed with MRSA). Methi cilli n-res istan t Staph yloco ccus aureu s (MRSA ) DNA is detec christina (pres umed colon ized with MRSA) . Not Available Not Available 02/21/2025 09:50:41 02/23/20 24 02/23/2024 Methi cilli n resis tant Staph yloco ccus aureu s (MRSA ) DNA [Pres ence] in Speci men by RASHAWN with probe detec tion interpretati on and review of laboratory results Abnorm al Not Available Not Available 09:50:41 02/24/20 24 02/24/2024 Gluco se [Mass /volu me] in Arter ial blood glucose [mass/volume ] in capillary blood by glucometer 169 mg/dL low: 70mg/d Lhigh: 115mg/ dL high Gluco se WB/PO C 169 (H) 70 - 115 mg/dL 02/23 7:26 PM CDT [facility] Not Available Not Available 02/21/2025 09:50:44 02/24/20 24 02/24/2024 Gluco se [Mass /volu me] in Arter ial blood specimen source identified Cap Finger stick Speci men Type Cap Finge rstic k 02/23 7:26 PM CDT [facility] Not Available Not Available 02/21/2025 09:50:44 02/24/20 24 02/24/2024 Gluco se [Mass /volu me] in Arter ial blood interpretati on and review of laboratory results Abnorm al Not Available Not Available 09:50:44 02/24/20 24 02/24/2024 Gluco se [Mass /volu me] in Arter ial blood glucose [mass/volume ] in capillary blood by glucometer 185 mg/dL low: 70mg/d Lhigh: 115mg/ dL high Gluco se WB/PO C 185 (H) 70 - 115 mg/dL 02/23 12:31 PM CDT [facility] Not Available Not Available 02/21/2025 09:50:44 02/24/20 24 02/24/2024 Gluco se [Mass /volu me] in Arter ial blood specimen source identified Cap Finger stick Speci men Type Cap Finge rstic k 02/23 12:31 PM CDT [facility] Not Available Not Available 02/21/2025 09:50:44 02/24/20 24 02/24/2024 Gluco se [Mass /volu me] in Arter ial blood interpretati on and review of laboratory results Abnorm al Not Available Not Available 09:50:44 02/24/20 24 02/24/2024 HIV 1+2 Ab+HI V1 p24 Ag [Pres ence] in Serum or Plasm a by Immun oassa y HIV 1+2 Ab+HIV1 P24 Ag [presence] in serum or plasma by immunoassay Non-re active text: non-re active HIV Antig en/An tibod y 1 & 2 Non-r eacti ve Non-r eacti ve 02/23 10:03 AM CDT [facility] Not Available Not Available 12/16/2024 13:27:04 02/24/20 24 02/24/2024 HIV 1+2 Ab+HI V1 p24 Ag [Pres ence] in Serum or Plasm a by Immun oassa y interpretati on and review of laboratory results Normal Not Available Not Available 12/04 13:27:04 02/24/20 24 02/24/2024 Gluco se [Mass /volu me] in Arter ial blood glucose [mass/volume ] in capillary blood by glucometer 154 mg/dL low: 70mg/d Lhigh: 115mg/ dL high Gluco se WB/PO C 154 (H) 70 - 115 mg/dL 02/23 6:27 AM CDT [facility] [employer] [facility] Not Available Not Available 02/21/2025 09:50:44 02/24/20 24 02/24/2024 Gluco se [Mass /volu me] in Arter ial blood specimen source identified Cap Finger stick Speci men Type Cap Finge rstic k 02/23 6:27 AM CDT [facility] [employer] [facility] Not Available Not Available 02/21/2025 09:50:44 02/24/20 24 02/24/2024 Gluco se [Mass /volu me] in Arter ial blood interpretati on and review of laboratory results Abnorm al Not Available Not Available 09:50:44 02/24/20 24 02/24/2024 Gluco se [Mass /volu me] in Arter ial blood glucose [mass/volume ] in capillary blood by glucometer 257 mg/dL low: 70mg/d Lhigh: 115mg/ dL high Gluco se WB/PO C 257 (H) 70 - 115 mg/dL 02/23 1:44 AM CDT [facility] [employer] [facility] Not Available Not Available 02/21/2025 09:50:44 02/24/20 24 02/24/2024 Gluco se [Mass /volu me] in Arter ial blood specimen source identified Cap Finger stick Speci men Type Cap Finge rstic k 02/23 1:44 AM [facility] [employer] [facility] Not Available Not Available 02/21/2025 09:50:44 02/24/20 24 02/24/2024 Gluco se [Mass /volu me] in Arter ial blood interpretati on and review of laboratory results Abnorm al Not Available Not Available 09:50:44 02/24/20 24 02/24/2024 Hepat itis B virus surfa ce Ab [Pres ence] in Serum hepatitis B virus surface Ab [units/volum e] in serum Reacti ve text: non-re active abnormal Hepat itis B Virus Surfa ce Antib reyes React talia (A) Non-r eacti ve 04/23 /2024 2:45 AM CDT [facility] IRA Not Available Not Available 02/21/2025 09:50:44 02/24/20 24 02/24/2024 Hepat itis B virus surfa ce Ab [Pres ence] in Serum hepatitis B virus surface Ab [units/volum e] in serum or plasma by immunoassay 37.6 text: <8.0 mIU/mL high Hepat itis B Surfa ce Antib reyes Quant itati ve 37.6 (H) <8.0 mIU/m L 02/23 2:45 AM CDT [facility] IRA Not Available Not Available 02/21/2025 09:50:44 02/24/20 24 02/24/2024 Hepat itis B virus surfa ce Ab [Pres ence] in Serum interpretati on and review of laboratory results Abnorm al Not Available Not Available 09:50:44 02/24/20 24 02/24/2024 CBC W Auto Diffe renti al panel - Blood leukocytes [#/volume] in blood by automated count 15.5 text: 4.0 - 10.7 x10e9/ L high WBC 15.5 (H) 4.0 - 10.7 x10E9 /L 02/23 2:14 AM CDT [facility] IRA Not Available Not Available 02/21/2025 09:50:44 02/24/20 24 02/24/2024 CBC W Auto Diffe renti al panel - Blood erythrocytes [#/volume] in blood by automated count 3.19 text: 3.90 - 5.20 x10e12 /L low RBC Count 3.19 (L) 3.90 - 5.20 x10E1 2/L 02/23 2:14 AM CDT [facility] IRA Not Available Not Available 02/21/2025 09:50:44 02/24/20 24 02/24/2024 CBC W Auto Diffe renti al panel - Blood hemoglobin [mass/volume ] in blood 9.4 g/dL low: 11.9g/ dLhigh : 15.8g/ dL low Hemog lobin 9.4 (L) 11.9 - 15.8 g/dL 02/23 2:14 AM [facility] IRA Not Available Not Available 02/21/2025 09:50:44 02/24/20 24 02/24/2024 CBC W Auto Diffe renti al panel - Blood hematocrit [volume fraction] of blood by automated count 30.6 % low: 34.8%h igh: 46.1% low Hemat ocrit 30.6 (L) 34.8 - 46.1 % 02/23 2:14 AM [facility] IRA Not Available Not Available 02/21/2025 09:50:44 02/24/20 24 02/24/2024 CBC W Auto Diffe renti al panel - Blood MCV [entitic mean volume] in red blood cells by automated count 95.9 fL low: 80fLhi gh: 98fL MCV 95.9 80.0 - 98.0 fL 02/23 2:14 AM [facility] IRA Not Available Not Available 02/21/2025 09:50:44 02/24/20 24 02/24/2024 CBC W Auto Diffe renti al panel - Blood MCH [entitic mass] by automated count 29.5 pg low: 26.7pg high: 33.6pg MCH 29.5 26.7 - 33.6 pg 02/23 2:14 AM [facility] IRA Not Available Not Available 02/21/2025 09:50:44 02/24/20 24 02/24/2024 CBC W Auto Diffe renti al panel - Blood MCHC [entitic mass/volume] in red blood cells by automated count 30.7 g/dL low: 31.7g/ dLhigh : 36.3g/ dL low MCHC 30.7 (L) 31.7 - 36.3 g/dL 02/23 2:14 AM [facility] IRA Not Available Not Available 02/21/2025 09:50:44 02/24/20 24 02/24/2024 CBC W Auto Diffe renti al panel - Blood erythrocyte [distwidth] in red blood cells by automated count 14.1 % low: 11.3%h igh: 14.8% RDW-C V 14.1 11.3 - 14.8 % 02/23 2:14 AM CDT [facility] IRA Not Available Not Available 02/21/2025 09:50:44 02/24/20 24 02/24/2024 CBC W Auto Diffe renti al panel - Blood platelets [#/volume] in blood by automated count 490 text: 150 - 420 x10e9/ L high Plate let Count 490 (H) 150 - 420 x10E9 /L 02/23 2:14 AM CDT [facility] Not Available Not Available 02/21/2025 09:50:44 02/24/20 24 02/24/2024 CBC W Auto Diffe renti al panel - Blood platelet [entitic mean volume] in blood by automated count 9 fL low: 7.8fLh igh: 11.4fL MPV 9.0 7.8 - 11.4 fL 02/23 2:14 AM CDT [facility] Not Available Not Available 02/21/2025 09:50:44 02/24/20 24 02/24/2024 CBC W Auto Diffe renti al panel - Blood neutrophils/ leukocytes in blood by automated count 61.9 % low: 41%hig h: 74% Neutr ophil % 61.9 41.0 - 74.0 % 02/23 2:14 AM CDT [facility] Not Available Not Available 02/21/2025 09:50:44 02/24/20 24 02/24/2024 CBC W Auto Diffe renti al panel - Blood lymphocytes/ leukocytes in blood by automated count 14.5 % low: 17%hig h: 47% low Lymph ocyte % 14.5 (L) 17.0 - 47.0 % 02/23 2:14 AM CDT [facility] Not Available Not Available 02/21/2025 09:50:44 02/24/20 24 02/24/2024 CBC W Auto Diffe renti al panel - Blood monocytes/le ukocytes in blood by automated count 7.9 % low: 3%high : 11% Monoc yte % 7.9 3.0 - 11.0 % 02/23 2:14 AM CDT [facility] Not Available Not Available 02/21/2025 09:50:44 02/24/20 24 02/24/2024 CBC W Auto Diffe renti al panel - Blood eosinophils/ leukocytes in blood by automated count 12 % low: 0%high : 7% high Eosin ophil % 12.0 (H) 0.0 - 7.0 % 02/23 2:14 AM CDT [facility] Not Available Not Available 02/21/2025 09:50:44 02/24/20 24 02/24/2024 CBC W Auto Diffe renti al panel - Blood basophils/le ukocytes in blood by automated count 0.8 % low: 0%high : 1.6% Basop hil % 0.8 0.0 - 1.6 % 02/23 2:14 AM [facility] Not Available Not Available 02/21/2025 09:50:44 02/24/20 24 02/24/2024 CBC W Auto Diffe renti al panel - Blood immature granulocytes /leukocytes in blood by automated count 2.9 % low: 0%high : 1% high Immat ure Granu locyt es % 2.9 (H) 0.0 - 1.0 % 02/23 2:14 AM [facility] Not Available Not Available 02/21/2025 09:50:44 02/24/20 24 02/24/2024 CBC W Auto Diffe renti al panel - Blood neutrophils [#/volume] in blood by automated count 9.62 text: 1.60 - 7.50 x10e9/ L high Neutr ophil Absol [place] 9.62 (H) 1.60 - 7.50 x10E9 /L 02/23 2:14 AM CDT [facility] Not Available Not Available 02/21/2025 09:50:44 02/24/20 24 02/24/2024 CBC W Auto Diffe renti al panel - Blood lymphocytes [#/volume] in blood by automated count 2.25 text: 1.00 - 4.40 x10e9/ L Lymph ocyte Absol [place] 2.25 1.00 - 4.40 x10E9 /L 02/23 2:14 AM CDT [facility] IRA Not Available Not Available 02/21/2025 09:50:44 02/24/20 24 02/24/2024 CBC W Auto Diffe renti al panel - Blood monocytes [#/volume] in blood by automated count 1.22 text: 0.15 - 1.00 x10e9/ L high Monoc yte Absol [place] 1.22 (H) 0.15 - 1.00 x10E9 /L 02/23 2:14 AM CDT [facility] Not Available Not Available 02/21/2025 09:50:44 02/24/20 24 02/24/2024 CBC W Auto Diffe renti al panel - Blood eosinophils [#/volume] in blood 1.86 text: 0.00 - 0.60 x10e9/ L high Eosin ophil Absol [place] 1.86 (H) 0.00 - 0.60 x10E9 /L 02/23 2:14 AM CDT [facility] Not Available Not Available 02/21/2025 09:50:44 02/24/20 24 02/24/2024 CBC W Auto Diffe renti al panel - Blood basophils [#/volume] in blood by automated count 0.12 text: 0.00 - 0.13 x10e9/ L Basop hil Absol [place] 0.12 0.00 - 0.13 x10E9 /L 02/23 2:14 AM CDT [facility] Not Available Not Available 02/21/2025 09:50:44 02/24/20 24 02/24/2024 CBC W Auto Diffe renti al panel - Blood nucleated erythrocytes /leukocytes [ratio] in blood by automated count 0.2 text: <=0.0 /100 WBC high NRBC 0.2 (H) <=0.0 /100 WBC 02/23 2:14 AM CDT [facility] Not Available Not Available 02/21/2025 09:50:44 02/24/20 24 02/24/2024 CBC W Auto Diffe renti al panel - Blood interpretati on and review of laboratory results Abnorm al Not Available Not Available 09:50:44 02/24/20 24 02/24/2024 Magne sium [Mass /volu me] in Serum or Plasm a magnesium [mass/volume ] in serum or plasma 2.2 mg/dL low: 1.6mg/ dLhigh : 2.6mg/ dL Magne sium 2.2 1.6 - 2.6 mg/dL 02/23 2:36 AM CDT [facility] [facility] Not Available Not Available 02/21/2025 09:50:43 02/24/20 24 02/24/2024 Magne sium [Mass /volu me] in Serum or Plasm a interpretati on and review of laboratory results Normal Not Available Not Available 02/02 09:50:43 02/24/20 24 02/24/2024 Phosp hate [Mass /volu me] in Serum or Plasm a phosphate [mass/volume ] in serum or plasma 6.3 mg/dL low: 2.9mg/ dLhigh : 5.1mg/ dL high Phosp horus 6.3 (H) 2.9 - 5.1 mg/dL 02/23 2:36 AM CDT [facility] [employer] [facility] IRA Not Available Not Available 02/21/2025 09:50:43 02/24/20 24 02/24/2024 Phosp hate [Mass /volu me] in Serum or Plasm a interpretati on and review of laboratory results Abnorm al Not Available Not Available 09:50:43 02/24/20 24 02/24/2024 Basic metab olic 2000 panel - Serum or Plasm a urea nitrogen [mass/volume ] in serum or plasma 28 mg/dL low: 7mg/dL high: 26mg/d L high BUN 28 (H) 7 - 26 mg/dL 02/23 2:36 AM T [facility] [employer] [facility] Not Available Not Available 02/21/2025 09:50:43 02/24/20 24 02/24/2024 Basic metab olic 2000 panel - Serum or Plasm a creatinine [mass/volume ] in serum or plasma 5.93 mg/dL low: 0.56mg /dLhig h: 0.96mg /dL high Creat inine 5.93 (H) 0.56 - 0.96 mg/dL 02/23 2:36 AM CDT [facility] Not Available Not Available 02/21/2025 09:50:43 02/24/20 24 02/24/2024 Basic metab olic 2000 panel - Serum or Plasm a sodium [moles/volum e] in serum or plasma 135 mmol/ L low: 136mmo l/Lhig h: 145mmo l/L low Sodiu m 135 (L) 136 - 145 mmol/ L 02/23 2:36 AM CDT [facility] Not Available Not Available 02/21/2025 09:50:43 02/24/20 24 02/24/2024 Basic metab olic 2000 panel - Serum or Plasm a potassium [moles/volum e] in serum or plasma 4.1 mmol/ L low: 3.5mmo l/Lhig h: 4.5mmo l/L Potas sium 4.1 3.5 - 4.5 mmol/ L 02/23 2:36 AM CDT [facility] Not Available Not Available 02/21/2025 09:50:43 02/24/20 24 02/24/2024 Basic metab olic 2000 panel - Serum or Plasm a chloride [moles/volum e] in serum or plasma 100 mmol/ L low: 98mmol /Lhigh : 107mmo l/L Chlor brodie 100 98 - 107 mmol/ L 02/23 2:36 AM CDT [facility] Not Available Not Available 02/21/2025 09:50:43 02/24/20 24 02/24/2024 Basic metab olic 2000 panel - Serum or Plasm a carbon dioxide, total [moles/volum e] in serum or plasma 24 mmol/ L low: 22mmol /Lhigh : 29mmol /L CO2 24 22 - 29 mmol/ L 02/23 2:36 AM CDT [facility] Not Available Not Available 02/21/2025 09:50:43 02/24/20 24 02/24/2024 Basic metab olic 1999 panel - Serum or Plasm a glucose [mass/volume ] in serum or plasma 223 mg/dL low: 70mg/d Lhigh: 115mg/ dL high Gluco se 223 (H) 70 - 115 mg/dL 02/23 2:36 AM CDT [facility] Not Available Not Available 02/21/2025 09:50:43 02/24/20 24 02/24/2024 Basic metab olic 1999 panel - Serum or Plasm a calcium [moles/volum e] in serum or plasma 8.5 mg/dL low: 8.4mg/ dLhigh : 10.2mg /dL Calci um 8.5 8.4 - 10.2 mg/dL 02/23 2:36 AM CDT [facility] Not Available Not Available 02/21/2025 09:50:43 02/24/20 24 02/24/2024 Basic metab olic 2000 panel - Serum or Plasm a anion gap 11 low: 6high: 16 Anion Gap 11 6 - 16 02/23 2:36 AM T [facility] Not Available Not Available 02/21/2025 09:50:43 02/24/20 24 02/24/2024 Basic metab olic 2000 panel - Serum or Plasm a urea nitrogen/cre atinine [mass ratio] in serum or plasma 5 low: 7high: 23 low BUN/C reati nine Ratio 5 (L) 7 - 23 02/23 2:36 AM T [facility] Not Available Not Available 02/21/2025 09:50:43 02/24/20 24 02/24/2024 Basic metab olic 2000 panel - Serum or Plasm a osmolality calculated 292 text: 275 - 295 mOsm/k g Osmol ality Calcu lated 292 275 - 295 mOsm/ kg 02/23 2:36 AM T [facility] [employer] [facility] IRA Not Available Not Available 02/21/2025 09:50:43 02/24/20 24 02/24/2024 Basic metab olic 2000 panel - Serum or Plasm a glomerular filtration rate [volume rate/area] in serum, plasma or blood by creatinine-b ased formula (CKD-epi)/1. 73 sq M 9 text: >=90 mL/min /1.73 m2 low eGFR by CKD-E PI 9 (L) >=90 mL/mi n/1.7 3 m2 02/23 2:36 AM CDT [facility] IRA Not Available Not Available 02/21/2025 09:50:43 02/24/20 24 02/24/2024 Basic metab olic 2000 panel - Serum or Plasm a interpretati on and review of laboratory results Abnorm al Not Available Not Available 09:50:43 02/25/20 24 02/25/2024 Gluco se [Mass /volu me] in Arter ial blood glucose [mass/volume ] in capillary blood by glucometer 191 mg/dL low: 70mg/d Lhigh: 115mg/ dL high Gluco se WB/PO C 191 (H) 70 - 115 mg/dL 02/24 8:14 PM CDT [employer] [facility] Not Available Not Available 02/21/2025 09:50:47 02/25/20 24 02/25/2024 Gluco se [Mass /volu me] in Arter ial blood specimen source identified Cap Finger stick Speci men Type Cap Finge rstic k 02/24 8:14 PM CDT [facility] Not Available Not Available 02/21/2025 09:50:47 02/25/20 24 02/25/2024 Gluco se [Mass /volu me] in Arter ial blood interpretati on and review of laboratory results Abnorm al Not Available Not Available 09:50:47 02/25/20 24 02/25/2024 Gluco se [Mass /volu me] in Arter ial blood glucose [mass/volume ] in capillary blood by glucometer 228 mg/dL low: 70mg/d Lhigh: 115mg/ dL high Gluco se WB/PO C 228 (H) 70 - 115 mg/dL 02/24 5:53 PM CDT [facility] [facility] Not Available Not Available 02/21/2025 09:50:47 02/25/20 24 02/25/2024 Gluco se [Mass /volu me] in Arter ial blood specimen source identified Cap Finger stick Speci men Type Cap Finge rstic k 02/24 5:53 PM CDT [facility] Not Available Not Available 02/21/2025 09:50:47 02/25/20 24 02/25/2024 Gluco se [Mass /volu me] in Arter ial blood interpretati on and review of laboratory results Abnorm al Not Available Not Available 09:50:47 02/25/2002/25/2024 Gluco se [Mass /volu me] in Arter ial blood glucose [mass/volume ] in capillary blood by glucometer 165 mg/dL low: 70mg/d Lhigh: 115mg/ dL high Gluco se WB/PO C 165 (H) 70 - 115 mg/dL 02/24 12:27 PM CDT [facility] Not Available Not Available 02/21/2025 09:50:47 02/25/20 24 02/25/2024 Gluco se [Mass /volu me] in Arter ial blood specimen source identified Cap Finger stick Speci men Type Cap Finge rstic k 02/24 12:27 PM CDT [facility] Not Available Not Available 02/21/2025 09:50:47 02/25/20 24 02/25/2024 Gluco se [Mass /volu me] in Arter ial blood interpretati on and review of laboratory results Abnorm al Not Available Not Available 09:50:47 02/25/20 24 03/01/2024 Bacte mima ident ified in [place] te by Anaer obe cultu re microorganis m identified in specimen by culture No anaero bic organi sms isolat ed Cultu re No anaer obic organ isms isola christina CHARLES 03/01 9:56 AM CDT [facility] Not Available Not Available 02/21/2025 09:50:46 02/25/20 24 03/01/2024 Bacte mima ident ified in [place] te by Anaer obe cultu re interpretati on and review of laboratory results Normal Not Available Not Available 02/02 09:50:46 02/25/20 24 03/22/2024 Fungu s ident ified in [place] te by Cultu re microorganis m identified in specimen by culture No fungus isolat ed Cultu re No fungu s isola christina CHARLES 03/22 7:32 AM CDT [facility] Not Available Not Available 02/21/2025 09:50:46 02/25/20 24 03/22/2024 Fungu s ident ified in [place] te by Cultu re fungus identified in specimen by fungus stain No yeast or hyphae seen Fungu s Stain No yeast or hypha e seen 03/22 7:32 AM CDT [facility] Not Available Not Available 02/21/2025 09:50:46 02/25/20 24 03/22/2024 Fungu s ident ified in [place] te by Cultu re interpretati on and review of laboratory results Normal Not Available Not Available 02/02 09:50:46 02/25/20 24 04/05/2024 Mycob acter ium sp ident ified in Speci men by Organ ism speci fic cultu re microorganis m identified in specimen by culture No acid-f ast bacill us isolat ed Cultu re No acid- fast bacil nitin isola christina 04/05 7:24 AM CDT [facility] Not Available Not Available 02/21/2025 09:50:46 02/25/20 24 04/05/2024 Mycob acter ium sp ident ified in Speci men by Organ ism speci fic cultu re microscopic observation [presence] in specimen by acid fast stain No acid-f ast bacill i seen AFB Smear No acid- fast bacil li seen 04/05 7:24 AM CDT [facility] Not Available Not Available 02/21/2025 09:50:46 02/25/20 24 04/05/2024 Mycob acter ium sp ident ified in Speci men by Organ ism speci fic cultu re interpretati on and review of laboratory results Normal Not Available Not Available 02/02 09:50:46 02/25/2002/27/2024 Bacte mima ident ified in Wound by Cultu re microorganis m identified in specimen by culture No growth Cultu re No growt h CHARLES 02/26 5:13 PM CDT [facility] Not Available Not Available 02/21/2025 09:50:46 02/25/20 24 02/27/2024 Bacte mima ident ified in Wound by Cultu re microscopic observation [identifier] in specimen by gram stain Heavy Polymo rphonu clear cells Gram Stain Heavy Polym orpho nucle ar cells 02/26 5:13 PM CDT [facility] Not Available Not Available 02/21/2025 09:50:46 02/25/2002/27/2024 Bacte mima ident ified in Wound by Cultu re microscopic observation [identifier] in specimen by gram stain No organi sms seen Gram Stain No organ isms seen 02/26 5:13 PM CDT [facility] Not Available Not Available 02/21/2025 09:50:46 02/25/20 24 02/25/2024 Gluco se [Mass /volu me] in Arter ial blood glucose [mass/volume ] in capillary blood by glucometer 180 mg/dL low: 70mg/d Lhigh: 115mg/ dL high Gluco se WB/PO C 180 (H) 70 - 115 mg/dL 02/24 8:46 AM CDT [facility] Not Available Not Available 02/21/2025 09:50:46 02/25/2002/25/2024 Gluco se [Mass /volu me] in Arter ial blood specimen source identified Cap Finger stick Speci men Type Cap Finge rstic k 02/24 8:46 AM CDT [facility] Not Available Not Available 02/21/2025 09:50:46 02/25/20 24 02/25/2024 Gluco se [Mass /volu me] in Arter ial blood interpretati on and review of laboratory results Abnorm al Not Available Not Available 09:50:46 02/25/2002/25/2024 Gluco se [Mass /volu me] in Arter ial blood glucose [mass/volume ] in capillary blood by glucometer 199 mg/dL low: 70mg/d Lhigh: 115mg/ dL high Gluco se WB/PO C 199 (H) 70 - 115 mg/dL 02/24 4:59 AM CDT [facility] Not Available Not Available 02/21/2025 09:50:46 02/25/2002/25/2024 Gluco se [Mass /volu me] in Arter ial blood specimen source identified Cap Finger stick Speci men Type Cap Finge rstic k 02/24 4:59 AM CDT [facility] Not Available Not Available 02/21/2025 09:50:46 02/25/2002/25/2024 Gluco se [Mass /volu me] in Arter ial blood interpretati on and review of laboratory results Abnorm al Not Available Not Available 09:50:46 02/25/2002/25/2024 CBC W Auto [facility] al panel - Blood leukocytes [#/volume] in blood by automated count 15.9 text: 4.0 - 10.7 x10e9/ L high WBC 15.9 (H) 4.0 - 10.7 x10E9 /L 02/24 1:47 AM CDT [facility] Not Available Not Available 02/21/2025 09:50:46 02/25/2002/25/2024 CBC W Auto Diffe renti al panel - Blood erythrocytes [#/volume] in blood by automated count 3.15 text: 3.90 - 5.20 x10e12 /L low RBC Count 3.15 (L) 3.90 - 5.20 x10E1 2/L 02/24 1:47 AM CDT [facility] Not Available Not Available 02/21/2025 09:50:46 02/25/20 24 02/25/2024 CBC W Auto Diffe renti al panel - Blood hemoglobin [mass/volume ] in blood 9.3 g/dL low: 11.9g/ dLhigh : 15.8g/ dL low Hemog lobin 9.3 (L) 11.9 - 15.8 g/dL 02/24 1:47 AM [facility] IRA Not Available Not Available 02/21/2025 09:50:46 02/25/2002/25/2024 CBC W Auto Diffe renti al panel - Blood hematocrit [volume fraction] of blood by automated count 30.3 % low: 34.8%h igh: 46.1% low Hemat ocrit 30.3 (L) 34.8 - 46.1 % 02/24 1:47 AM [facility] IRA Not Available Not Available 02/21/2025 09:50:46 02/25/2002/25/2024 CBC W Auto Diffe renti al panel - Blood MCV [entitic mean volume] in red blood cells by automated count 96.2 fL low: 80fLhi gh: 98fL MCV 96.2 80.0 - 98.0 fL 02/24 1:47 AM [facility] IRA Not Available Not Available 02/21/2025 09:50:46 02/25/20 24 02/25/2024 CBC W Auto [facility]iffe renti al panel - Blood MCH [entitic mass] by automated count 29.5 pg low: 26.7pg high: 33.6pg MCH 29.5 26.7 - 33.6 pg 02/24 1:47 AM [facility] IRA Not Available Not Available 02/21/2025 09:50:46 02/25/2002/25/2024 CBC W Auto [facility]iffe [facility]i al panel - Blood MCHC [entitic mass/volume] in red blood cells by automated count 30.7 g/dL low: 31.7g/ dLhigh : 36.3g/ dL low MCHC 30.7 (L) 31.7 - 36.3 g/dL 02/24 1:47 AM [facility] IRA Not Available Not Available 02/21/2025 09:50:46 02/25/20 24 02/25/2024 CBC W Auto [facility]iffe [facility]i al panel - Blood erythrocyte [distwidth] in red blood cells by automated count 14.2 % low: 11.3%h igh: 14.8% RDW-C V 14.2 11.3 - 14.8 % 02/24 1:47 AM CDT [facility] Not Available Not Available 02/21/2025 09:50:46 02/25/20 24 02/25/2024 CBC W Auto Diffe renti al panel - Blood platelets [#/volume] in blood by automated count 485 text: 150 - 420 x10e9/ L high Plate let Count 485 (H) 150 - 420 x10E9 /L 02/24 1:47 AM CDT [facility] Not Available Not Available 02/21/2025 09:50:46 02/25/2002/25/2024 CBC W Auto Diffe renti al panel - Blood platelet [entitic mean volume] in blood by automated count 9.1 fL low: 7.8fLh igh: 11.4fL MPV 9.1 7.8 - 11.4 fL 02/24 1:47 AM CDT [facility] Not Available Not Available 02/21/2025 09:50:46 02/25/20 24 02/25/2024 CBC W Auto Diffe renti al panel - Blood neutrophils/ leukocytes in blood by automated count 61.7 % low: 41%hig h: 74% Neutr ophil % 61.7 41.0 - 74.0 % 02/24 1:47 AM T [facility] Not Available Not Available 02/21/2025 09:50:46 02/25/20 24 02/25/2024 CBC W Auto [facility]i al panel - Blood lymphocytes/ leukocytes in blood by automated count 14 % low: 17%hig h: 47% low Lymph ocyte % 14.0 (L) 17.0 - 47.0 % 02/24 1:47 AM CDT [facility] Not Available Not Available 02/21/2025 09:50:46 02/25/20 24 02/25/2024 CBC W Auto Diffe renti al panel - Blood monocytes/le ukocytes in blood by automated count 7.7 % low: 3%high : 11% Monoc yte % 7.7 3.0 - 11.0 % 02/24 1:47 AM CDT [facility] Not Available Not Available 02/21/2025 09:50:46 02/25/20 24 02/25/2024 CBC W Auto Diffe [facility]i al panel - Blood eosinophils/ leukocytes in blood by automated count 12.5 % low: 0%high : 7% high Eosin ophil % 12.5 (H) 0.0 - 7.0 % 02/24 1:47 AM CDT [facility] Not Available Not Available 02/21/2025 09:50:46 02/25/2002/25/2024 CBC W Auto Diffe renti al panel - Blood basophils/le ukocytes in blood by automated count 0.6 % low: 0%high : 1.6% Basop hil % 0.6 0.0 - 1.6 % 02/24 1:47 AM T [facility] Not Available Not Available 02/21/2025 09:50:46 02/25/20 24 02/25/2024 CBC W Auto Diffe renti al panel - Blood immature granulocytes /leukocytes in blood by automated count 3.5 % low: 0%high : 1% high Immat ure Granu locyt es % 3.5 (H) 0.0 - 1.0 % 02/24 1:47 AM T [facility] Not Available Not Available 02/21/2025 09:50:46 02/25/20 24 02/25/2024 CBC W Auto Diffe renti al panel - Blood neutrophils [#/volume] in blood by automated count 9.84 text: 1.60 - 7.50 x10e9/ L high Neutr ophil Absol [place] 9.84 (H) 1.60 - 7.50 x10E9 /L 02/24 1:47 AM CDT [facility] Not Available Not Available 02/21/2025 09:50:46 02/25/20 24 02/25/2024 CBC W Auto Diffe renti al panel - Blood lymphocytes [#/volume] in blood by automated count 2.22 text: 1.00 - 4.40 x10e9/ L Lymph ocyte Absol [place] 2.22 1.00 - 4.40 x10E9 /L 02/24 1:47 AM CDT [facility] Not Available Not Available 02/21/2025 09:50:46 02/25/20 24 02/25/2024 CBC W Auto [facility]iffe [facility]i al panel - Blood monocytes [#/volume] in blood by automated count 1.22 text: 0.15 - 1.00 x10e9/ L high Monoc yte Absol [place] 1.22 (H) 0.15 - 1.00 x10E9 /L 02/24 1:47 AM CDT [facility] Not Available Not Available 02/21/2025 09:50:46 02/25/20 24 02/25/2024 CBC W Auto Diffe renti al panel - Blood eosinophils [#/volume] in blood 1.98 text: 0.00 - 0.60 x10e9/ L high Eosin ophil Absol [place] 1.98 (H) 0.00 - 0.60 x10E9 /L 02/24 1:47 AM T [facility] Not Available Not Available 02/21/2025 09:50:46 02/25/20 24 02/25/2024 CBC W Auto [facility]iffe [facility]i al panel - Blood basophils [#/volume] in blood by automated count 0.09 text: 0.00 - 0.13 x10e9/ L Basop hil Absol [place] 0.09 0.00 - 0.13 x10E9 /L 02/24 1:47 AM T [facility] Not Available Not Available 02/21/2025 09:50:46 02/25/20 24 02/25/2024 CBC W Auto Diffe renti al panel - Blood interpretati on and review of laboratory results Abnorm al Not Available Not Available 09:50:46 02/25/20 24 02/25/2024 Magne sium [Mass /volu me] in Serum or Plasm a magnesium [mass/volume ] in serum or plasma 2.1 mg/dL low: 1.6mg/ dLhigh : 2.6mg/ dL Magne sium 2.1 1.6 - 2.6 mg/dL 02/24 2:44 AM CDT [facility] IRA Not Available Not Available 02/21/2025 09:50:46 02/25/20 24 02/25/2024 Magne sium [Mass /volu me] in Serum or Plasm a interpretati on and review of laboratory results Normal Not Available Not Available 02/02 09:50:46 02/25/20 24 02/25/2024 Phosp hate [Mass /volu me] in Serum or Plasm a phosphate [mass/volume ] in serum or plasma 5 mg/dL low: 2.9mg/ dLhigh : 5.1mg/ dL Phosp horus 5.0 2.9 - 5.1 mg/dL 02/24 2:44 AM [facility] IRA Not Available Not Available 02/21/2025 09:50:45 02/25/20 24 02/25/2024 Phosp hate [Mass /volu me] in Serum or Plasm a interpretati on and review of laboratory results Normal Not Available Not Available 02/02 09:50:45 02/25/20 24 02/25/2024 Basic metab olic 2000 panel - Serum or Plasm a urea nitrogen [mass/volume ] in serum or plasma 18 mg/dL low: 7mg/dL high: 26mg/d L BUN 18 7 - 26 mg/dL 02/24 2:44 AM [facility] IRA Not Available Not Available 02/21/2025 09:50:45 02/25/20 24 02/25/2024 Basic metab olic 2000 panel - Serum or Plasm a creatinine [mass/volume ] in serum or plasma 4.15 mg/dL low: 0.56mg /dLhig h: 0.96mg /dL high Creat inine 4.15 (H) 0.56 - 0.96 mg/dL 02/24 2:44 AM T [facility] IRA Not Available Not Available 02/21/2025 09:50:45 02/25/20 24 02/25/2024 Basic metab olic 2000 panel - Serum or Plasm a sodium [moles/volum e] in serum or plasma 135 mmol/ L low: 136mmo l/Lhig h: 145mmo l/L low Sodiu m 135 (L) 136 - 145 mmol/ L 02/24 2:44 AM CDT [facility] IRA Not Available Not Available 02/21/2025 09:50:45 02/25/2002/25/2024 Basic metab olic 2000 panel - Serum or Plasm a potassium [moles/volum e] in serum or plasma 4.2 mmol/ L low: 3.5mmo l/Lhig h: 4.5mmo l/L Potas sium 4.2 3.5 - 4.5 mmol/ L 02/24 2:44 AM CDT [facility] IRA Not Available Not Available 02/21/2025 09:50:45 02/25/20 24 02/25/2024 Basic metab olic 1999 panel - Serum or Plasm a chloride [moles/volum e] in serum or plasma 101 mmol/ L low: 98mmol /Lhigh : 107mmo l/L Chlor brodie 101 98 - 107 mmol/ L 02/24 2:44 AM CDT [facility] IRA Not Available Not Available 02/21/2025 09:50:45 02/25/20 24 02/25/2024 Basic metab olic 2000 panel - Serum or Plasm a carbon dioxide, total [moles/volum e] in serum or plasma 25 mmol/ L low: 22mmol /Lhigh : 29mmol /L CO2 25 22 - 29 mmol/ L 02/24 2:44 AM T [facility] Not Available Not Available 02/21/2025 09:50:45 02/25/20 24 02/25/2024 Basic metab olic 2000 panel - Serum or Plasm a glucose [mass/volume ] in serum or plasma 214 mg/dL low: 70mg/d Lhigh: 115mg/ dL high Gluco se 214 (H) 70 - 115 mg/dL 02/24 2:44 AM T [facility] Not Available Not Available 02/21/2025 09:50:45 02/25/2002/25/2024 Basic metab olic 2000 panel - Serum or Plasm a calcium [moles/volum e] in serum or plasma 8.3 mg/dL low: 8.4mg/ dLhigh : 10.2mg /dL low Calci um 8.3 (L) 8.4 - 10.2 mg/dL 02/24 2:44 AM CDT [facility] Not Available Not Available 02/21/2025 09:50:45 02/25/20 24 02/25/2024 Basic metab olic 2000 panel - Serum or Plasm a anion gap 9 low: 6high: 16 Anion Gap 9 6 - 16 02/24 2:44 AM CDT [facility] [facility] IRA Not Available Not Available 02/21/2025 09:50:45 02/25/2002/25/2024 Basic metab olic 2000 panel - Serum or Plasm a urea nitrogen/cre atinine [mass ratio] in serum or plasma 4 low: 7high: 23 low BUN/C reati nine Ratio 4 (L) 7 - 23 02/24 2:44 AM CDT [employer] [facility] IRA Not Available Not Available 02/21/2025 09:50:45 02/25/2002/25/2024 Basic metab olic 2000 panel - Serum or Plasm a osmolality calculated 288 text: 275 - 295 mOsm/k g Osmol ality Calcu lated 288 275 - 295 mOsm/ kg 02/24 2:44 AM CDT [facility] [facility] IRA Not Available Not Available 02/21/2025 09:50:45 02/25/2002/25/2024 Basic metab olic 2000 panel - Serum or Plasm a glomerular filtration rate [volume rate/area] in serum, plasma or blood by creatinine-b ased formula (CKD-epi)/1. 73 sq M 14 text: >=90 mL/min /1.73 m2 low eGFR by CKD-E PI 14 (L) >=90 mL/mi n/1.7 3 m2 02/24 2:44 AM CDT [facility] [facility] Not Available Not Available 02/21/2025 09:50:45 0402/25/2024 Basic metab olic 2000 panel - Serum or Plasm a interpretati on and review of laboratory results Abnorm al Not Available Not Available 09:50:45 02/25/2002/25/2024 25-hy droxy vitam in D3 [Mass /volu me] in Serum or Plasm a 25-hydroxyvi tamin D3+25-hydrox yvitamin D2 [mass/volume ] in serum or plasma 12.3 NG/mL low: 30NG/m Lhigh: 80NG/m L low Vitam in D, 25 Cascade xy 12.3 (L) 30.0 - 80.0 ng/mL 02/24 2:48 AM CDT [facility] Not Available Not Available 02/21/2025 09:50:45 02/25/2002/25/2024 25-hy droxy vitam in D3 [Mass /volu me] in Serum or Plasm a interpretati on and review of laboratory results Abnorm al Not Available Not Available 09:50:45 02/25/20 24 02/25/[address] [Mass /volu me] in Serum or Plasm a parathyrin.i ntact [mass/volume ] in serum or plasma 93 pg/mL low: 8pg/mL high: 77pg/m L high PTH Intac t 93.0 (H) 8.0 - 77.0 pg/mL 02/24 2:44 AM CDT [facility] Not Available Not Available 02/21/2025 09:50:45 02/25/2002/25/[address] [Mass /volu me] in Serum or Plasm a interpretati on and review of laboratory results Abnorm al Not Available Not Available 09:50:45 02/25/2002/25/2024 Cobal velazquez (Adriana min B12) [Mass /volu me] in Serum or Plasm a cobalamin (vitamin B12) [mass/volume ] in serum or plasma 667 pg/mL low: 213pg/ mLhigh : 816pg/ mL Vitam in B12 667 213 - 816 pg/mL 02/24 2:48 AM CDT [facility] Not Available Not Available 02/21/2025 09:50:45 02/25/2002/25/2024 Cobal velazquez (Adriana min B12) [Mass /volu me] in Serum or Plasm a interpretati on and review of laboratory results Normal Not Available Not Available 02/02 09:50:45 02/25/20 24 02/25/2024 Folat e [Mass /volu me] in Serum or Plasm a folate [mass/volume ] in serum or plasma 10.2 NG/mL low: 7NG/mL high: 31.4NG /mL Folat e 10.2 7.0 - 31.4 ng/mL 02/24 2:48 AM CDT [facility] Not Available Not Available 02/21/2025 09:50:45 02/25/20 24 02/25/2024 Folat e [Mass /volu me] in Serum or Plasm a interpretati on and review of laboratory results Normal Not Available Not Available 02/02 09:50:45 02/25/20 24 02/25/2024 Ashu tin [Mass /volu me] in Serum or Plasm a ferritin [mass/volume ] in serum or plasma 833 NG/mL low: 13NG/m Lhigh: 204NG/ mL high Ashu tin 833 (H) 13 - 204 ng/mL 02/24 4:36 AM CDT [facility] Not Available Not Available 02/21/2025 09:50:45 02/25/20 24 02/25/2024 Ashu tin [Mass /volu me] in Serum or Plasm a interpretati on and review of laboratory results Abnorm al Not Available Not Available 09:50:45 02/25/20 24 02/25/2024 Iron satur ation [Mass Fract ion] in Serum or Plasm a iron [mass/volume ] in serum or plasma 23 ug/dL low: 40ug/d Lhigh: 150ug/ dL low Iron 23 (L) 40 - 150 ug/dL 02/24 4:19 AM CDT [facility] Not Available Not Available 02/21/2025 09:50:45 02/25/2002/25/2024 Iron satur ation [Mass Fract ion] in Serum or Plasm a transferrin [mass/volume ] in serum or plasma 119 mg/dL low: 174mg/ dLhigh : 382mg/ dL low Trans ashu n 119 (L) 174 - 382 mg/dL 02/24 4:19 AM CDT [facility] Not Available Not Available 02/21/2025 09:50:45 02/25/2002/25/2024 Iron satur ation [Mass Fract ion] in Serum or Plasm a transferrin saturation % 15 % low: 16%hig h: 50% low Trans ashu n Satur ation % 15 (L) 16 - 50 % 02/24 4:19 AM CDT [facility] Not Available Not Available 02/21/2025 09:50:45 02/25/20 24 02/25/2024 Iron satur ation [Mass Fract ion] in Serum or Plasm a iron binding capacity [mass/volume ] in serum or plasma 149 ug/dL low: 240ug/ dLhigh : 450ug/ dL low TIBC Calcu lated 149 (L) 240 - 450 ug/dL 02/24 4:19 AM CDT [facility] Not Available Not Available 02/21/2025 09:50:45 02/25/20 24 02/25/2024 Iron satur ation [Mass Fract ion] in Serum or Plasm a interpretati on and review of laboratory results Abnorm al Not Available Not Available 09:50:45 02/25/2002/25/2024 Chlam ydia trach omati s+Nei sseri a gonor rhoea e rRNA [Pres ence] in Speci men by Probe chlamydia trachomatis rrna [presence] in specimen by RASHAWN with probe detection Negati ve text: negati ve Chlam ydia Ampli fied Probe Negat talia Negat talia 02/24 7:24 PM CDT [facility] Not Available Not Available 02/21/2025 09:50:45 02/25/20 24 02/25/2024 Chlam ydia trach omati s+Nei sseri a gonor rhoea e rRNA [Pres ence] in Speci men by Probe neisseria gonorrhoeae rrna [presence] in specimen by RASHAWN with probe detection Negati ve text: negati ve GC Ampli fied Probe Negat talia Negat talia 02/24 7:24 PM CDT [facility] Not Available Not Available 02/21/2025 09:50:45 02/25/20 24 02/25/2024 Chlam ydia trach omati s+Nei sseri a gonor rhoea e rRNA [Pres ence] in Speci men by Probe Unknown Analyte Result s based on detect ion/no detect ion of riboso mal RNA by amplif ied method . Resul ts based on detec tion/ no detec tion of ribos omal RNA by ampli fied metho d. Not Available Not Available 02/21/2025 09:50:45 02/25/20 24 02/25/2024 Chlam ydia trach omati s+Nei sseri a gonor rhoea e rRNA [Pres ence] in Speci men by Probe interpretati on and review of laboratory results Normal Not Available Not Available 02/02 09:50:45 02/25/2002/28/2024 Bacte mima ident ified in Urine by Cultu re bacteria identified in urine by culture 50,000 -100,0 00 CFU/mL Entero coccus faeciu m vancom ycin-r esista nt (VRE) abnormal Cultu re Urine 50,00 0-100 ,000 CFU/m L Enter ococc us faeci um vanco mycin -resi stant (VRE) (A) CHARLES 02/26 11:22 PM CDT [facility] Not Available Not Available 02/21/2025 09:50:44 02/25/20 24 02/28/2024 Bacte mima ident ified in Urine by Cultu re bacteria identified in urine by culture 50,000 -100,0 00 CFU/mL urogen ital nish Cultu re Urine 50,00 0-100 ,000 CFU/m L uroge nital nish CHARLES 02/26 11:22 PM CDT [facility] Not Available Not Available 02/21/2025 09:50:44 02/25/20 24 02/28/2024 Bacte mima ident ified in Urine by Cultu re interpretati on and review of laboratory results Abnorm al Not Available Not Available 09:50:44 02/25/20 24 02/25/2024 Urina lysis compl ete W Refle x Cultu re panel - Urine reflex status Cultur e to follow Refle x Statu s Cultu re to follo w 02/23 11:37 PM CDT [facility] Not Available Not Available 02/21/2025 09:50:44 02/25/20 24 02/25/2024 Urina lysis compl ete W Refle x Cultu re panel - Urine WBC UA 6-10 text: none seen, 0-5 /hpf abnormal WBC UA 6-10 (A) None Seen, 0-5 /HPF 02/23 11:37 PM CDT [facility] Not Available Not Available 02/21/2025 09:50:44 02/25/20 24 02/25/2024 Urina lysis compl ete W Refle x Cultu re panel - Urine bacteria UA Trace text: none /hpf abnormal Bacte mima UA Trace (A) None /HPF 02/23 11:37 PM CDT [facility] Not Available Not Available 02/21/2025 09:50:44 02/25/20 24 02/25/2024 Urina lysis compl ete W Refle x Cultu re panel - Urine squamous epithelial cells UA 0-2 text: none seen, 0-2, 3-5 /hpf Squam ous Epith elial Cells UA 0-2 None Seen, 0-2, 3-5 /HPF 02/23 11:37 PM CDT [facility] Not Available Not Available 02/21/2025 09:50:44 02/25/20 24 02/25/2024 Urina lysis compl ete W Refle x Cultu re panel - Urine Unknown Analyte Not Available Not Available 02/02 09:50:44 02/25/20 24 02/25/2024 Urina lysis compl ete W Refle x Cultu re panel - Urine interpretati on and review of laboratory results Abnorm al Not Available Not Available 09:50:44 02/25/2002/25/2024 Urina lysis panel - Urine by Autom ated color UA Yellow text: straw, yellow Color UA Yello w Straw , Yello w 02/23 11:36 PM CDT [facility] Not Available Not Available 02/21/2025 09:50:44 02/25/2002/25/2024 Urina lysis panel - Urine by Autom ated clarity UA Slt Cloudy text: clear abnormal Mirna ty UA Slt [place] y (A) Clear 02/23 11:36 PM CDT [facility] Not Available Not Available 02/21/2025 09:50:44 02/25/2002/25/2024 Urina lysis panel - Urine by Autom ated specific gravity UA 1.015 low: 1.005h igh: 1.03 Speci fic Gravi ty UA 1.015 1.005 - 1.030 02/23 11:36 PM CDT [facility] Not Available Not Available 02/21/2025 09:50:44 02/25/2002/25/2024 Urina lysis panel - Urine by Autom ated pH UA 5 pH low: 5pHhig h: 8pH pH UA 5.0 5.0 - 8.0 pH 02/23 11:36 PM CDT [facility] Not Available Not Available 02/21/2025 09:50:44 02/25/2002/25/2024 Urina lysis panel - Urine by Autom ated protein UA 3+ text: negati ve abnormal Prote in UA 3+ (A) Negat talia 02/23 11:36 PM CDT [facility] Not Available Not Available 02/21/2025 09:50:44 02/25/2002/25/2024 Urina lysis panel - Urine by Autom ated glucose UA 2+ text: negati ve abnormal Gluco se UA 2+ (A) Negat talia 04/23 /2024 11:36 PM CDT [facility] Not Available Not Available 02/21/2025 09:50:44 02/25/20 24 02/25/2024 Urina lysis panel - Urine by Autom ated ketone UA Trace text: negati ve abnormal Keton e UA Trace (A) Negat talia 02/23 11:36 PM CDT [facility] Not Available Not Available 02/21/2025 09:50:44 02/25/20 24 02/25/2024 Urina lysis panel - Urine by Autom ated bilirubin UA Negati ve text: negati ve Bilir ubin UA Negat talia Negat talia 02/23 11:36 PM CDT [facility] Not Available Not Available 02/21/2025 09:50:44 02/25/20 24 02/25/2024 Urina lysis panel - Urine by Autom ated blood UA Negati ve text: negati ve Blood UA Negat talia Negat talia 02/23 11:36 PM CDT [facility] Not Available Not Available 02/21/2025 09:50:44 02/25/20 24 02/25/2024 Urina lysis panel - Urine by Autom ated nitrite UA Negati ve text: negati ve Nitri te UA Negat talia Negat talia 02/23 11:36 PM CDT [facility] Not Available Not Available 02/21/2025 09:50:44 02/25/20 24 02/25/2024 Urina lysis panel - Urine by Autom ated leukocyte esterase 2+ text: negati ve abnormal Leuko cyte Zelda ase 2+ (A) Negat talia 02/23 11:36 PM CDT [facility] Not Available Not Available 02/21/2025 09:50:44 02/25/20 24 02/25/2024 Urina lysis panel - Urine by Autom ated urobilinogen UA Negati ve text: negati ve mg/dL Urobi linog en UA Negat talia Negat talia mg/dL 02/23 11:36 PM CDT [facility] Not Available Not Available 02/21/2025 09:50:44 02/25/20 24 02/25/2024 Urina lysis panel - Urine by Autom ated Unknown Analyte Not Available Not Available 02/02 09:50:44 02/25/20 24 02/25/2024 Urina lysis panel - Urine by Autom ated interpretati on and review of laboratory results Abnorm al Not Available Not Available 09:50:44 02/26/20 24 02/26/2024 Gluco se [Mass /volu me] in Arter ial blood glucose [mass/volume ] in capillary blood by glucometer 112 mg/dL low: 70mg/d Lhigh: 115mg/ dL Gluco se WB/PO C 112 70 - 115 mg/dL 02/25 4:21 PM CDT [facility] Not Available Not Available 02/21/2025 09:50:48 02/26/20 24 02/26/2024 Gluco se [Mass /volu me] in Arter ial blood specimen source identified Cap Finger stick Speci men Type Cap Finge rstic k 02/25 4:21 PM CDT [facility] Not Available Not Available 02/21/2025 09:50:48 02/26/20 24 02/26/2024 Gluco se [Mass /volu me] in Arter ial blood glucose [mass/volume ] in capillary blood by glucometer 136 mg/dL low: 70mg/d Lhigh: 115mg/ dL high Gluco se WB/PO C 136 (H) 70 - 115 mg/dL 02/25 5:00 AM CDT [facility] Not Available Not Available 02/21/2025 09:50:48 02/26/20 24 02/26/2024 Gluco se [Mass /volu me] in Arter ial blood specimen source identified Cap Finger stick Speci men Type Cap Finge rstic k 02/25 5:00 AM CDT [facility] Not Available Not Available 02/21/2025 09:50:48 02/26/20 24 02/26/2024 Gluco se [Mass /volu me] in Arter ial blood interpretati on and review of laboratory results Abnorm al Not Available Not Available 09:50:48 02/26/2002/26/2024 CBC W Auto Diffe renti al panel - Blood leukocytes [#/volume] in blood by automated count 13.9 text: 4.0 - 10.7 x10e9/ L high WBC 13.9 (H) 4.0 - 10.7 x10E9 /L 02/25 2:28 AM CDT [facility] Not Available Not Available 02/21/2025 09:50:47 02/26/20 24 02/26/2024 CBC W Auto Diffe renti al panel - Blood erythrocytes [#/volume] in blood by automated count 3.14 text: 3.90 - 5.20 x10e12 /L low RBC Count 3.14 (L) 3.90 - 5.20 x10E1 2/L 02/25 2:28 AM CDT [facility] Not [facility] Not Available 02/21/2025 09:50:47 02/26/20 24 02/26/2024 CBC W Auto Diffe renti al panel - Blood hemoglobin [mass/volume ] in blood 9.2 g/dL low: 11.9g/ dLhigh : 15.8g/ dL low Hemog lobin 9.2 (L) 11.9 - 15.8 g/dL 02/25 2:28 AM T [facility] Not Available Not Available 02/21/2025 09:50:47 02/26/2002/26/2024 CBC W Auto Diffe renti al panel - Blood hematocrit [volume fraction] of blood by automated count 30.4 % low: 34.8%h igh: 46.1% low Hemat ocrit 30.4 (L) 34.8 - 46.1 % 02/25 2:28 AM T [facility] Not Available Not Available 02/21/2025 09:50:47 02/26/20 24 02/26/2024 CBC W Auto Diffe renti al panel - Blood MCV [entitic mean volume] in red blood cells by automated count 96.8 fL low: 80fLhi gh: 98fL MCV 96.8 80.0 - 98.0 fL 02/25 2:28 AM CDT [facility] Not Available Not Available 02/21/2025 09:50:47 02/26/20 24 02/26/2024 CBC W Auto Diffe renti al panel - Blood MCH [entitic mass] by automated count 29.3 pg low: 26.7pg high: 33.6pg MCH 29.3 26.7 - 33.6 pg 02/25 2:28 AM T [facility] Not Available Not Available 02/21/2025 09:50:47 02/26/20 24 02/26/2024 CBC W Auto Diffe renti al panel - Blood MCHC [entitic mass/volume] in red blood cells by automated count 30.3 g/dL low: 31.7g/ dLhigh : 36.3g/ dL low MCHC 30.3 (L) 31.7 - 36.3 g/dL 02/25 2:28 AM T [facility] Not Available Not Available 02/21/2025 09:50:47 02/26/20 24 02/26/2024 CBC W Auto Diffe renti al panel - Blood erythrocyte [distwidth] in red blood cells by automated count 14.4 % low: 11.3%h igh: 14.8% RDW-C V 14.4 11.3 - 14.8 % 02/25 2:28 AM T [facility] Not Available Not Available 02/21/2025 09:50:47 02/26/20 24 02/26/2024 CBC W Auto Diffe renti al panel - Blood platelets [#/volume] in blood by automated count 533 text: 150 - 420 x10e9/ L high Plate let Count 533 (H) 150 - 420 x10E9 /L 02/25 2:28 AM CDT [facility] Not Available Not Available 02/21/2025 09:50:47 02/26/20 24 02/26/2024 CBC W Auto Diffe renti al panel - Blood platelet [entitic mean volume] in blood by automated count 9.1 fL low: 7.8fLh igh: 11.4fL MPV 9.1 7.8 - 11.4 fL 02/25 2:28 AM CDT [facility] Not Available Not Available 02/21/2025 09:50:47 02/26/20 24 02/26/2024 CBC W Auto Diffe renti al panel - Blood neutrophils/ leukocytes in blood by automated count 56.6 % low: 41%hig h: 74% Neutr ophil % 56.6 41.0 - 74.0 % 02/25 2:28 AM CDT [facility] Not Available Not Available 02/21/2025 09:50:47 02/26/20 24 02/26/2024 CBC W Auto Diffe renti al panel - Blood lymphocytes/ leukocytes in blood by automated count 19.6 % low: 17%hig h: 47% Lymph ocyte % 19.6 17.0 - 47.0 % 02/25 2:28 AM CDT [facility] Not Available Not Available 02/21/2025 09:50:47 02/26/20 24 02/26/2024 CBC W Auto Diffe renti al panel - Blood monocytes/le ukocytes in blood by automated count 9.6 % low: 3%high : 11% Monoc yte % 9.6 3.0 - 11.0 % 02/25 2:28 AM CDT [facility] Not Available Not Available 02/21/2025 09:50:47 02/26/20 24 02/26/2024 CBC W Auto Diffe renti al panel - Blood eosinophils/ leukocytes in blood by automated count 10.9 % low: 0%high : 7% high Eosin ophil % 10.9 (H) 0.0 - 7.0 % 02/25 2:28 AM CDT [facility] Not Available Not Available 02/21/2025 09:50:47 02/26/20 24 02/26/2024 CBC W Auto Diffe renti al panel - Blood basophils/le ukocytes in blood by automated count 0.6 % low: 0%high : 1.6% Basop hil % 0.6 0.0 - 1.6 % 02/25 2:28 AM CDT [facility] Not Available Not Available 02/21/2025 09:50:47 02/26/20 24 02/26/2024 CBC W Auto Diffe renti al panel - Blood immature granulocytes /leukocytes in blood by automated count 2.7 % low: 0%high : 1% high Immat ure Granu locyt es % 2.7 (H) 0.0 - 1.0 % 02/25 2:28 AM CDT [facility] Not Available Not Available 02/21/2025 09:50:47 02/26/20 24 02/26/2024 CBC W Auto Diffe renti al panel - Blood neutrophils [#/volume] in blood by automated count 7.88 text: 1.60 - 7.50 x10e9/ L high Neutr ophil Absol [place] 7.88 (H) 1.60 - 7.50 x10E9 /L 02/25 2:28 AM CDT [facility] Not Available Not Available 02/21/2025 09:50:47 02/26/20 24 02/26/2024 CBC W Auto Diffe renti al panel - Blood lymphocytes [#/volume] in blood by automated count 2.73 text: 1.00 - 4.40 x10e9/ L Lymph ocyte Absol [place] 2.73 1.00 - 4.40 x10E9 /L 02/25 2:28 AM CDT [facility] Not Available Not Available 02/21/2025 09:50:47 02/26/20 24 02/26/2024 CBC W Auto Diffe renti al panel - Blood monocytes [#/volume] in blood by automated count 1.33 text: 0.15 - 1.00 x10e9/ L high Monoc yte Absol [place] 1.33 (H) 0.15 - 1.00 x10E9 /L 02/25 2:28 AM CDT [facility] Not Available Not Available 02/21/2025 09:50:47 02/26/20 24 02/26/2024 CBC W Auto Diffe renti al panel - Blood eosinophils [#/volume] in blood 1.52 text: 0.00 - 0.60 x10e9/ L high Eosin ophil Absol [place] 1.52 (H) 0.00 - 0.60 x10E9 /L 02/25 2:28 AM CDT [facility] Not Available Not Available 02/21/2025 09:50:47 02/26/20 24 02/26/2024 CBC W Auto Diffe renti al panel - Blood basophils [#/volume] in blood by automated count 0.08 text: 0.00 - 0.13 x10e9/ L Basop hil Absol [place] 0.08 0.00 - 0.13 x10E9 /L 02/25 2:28 AM CDT [facility] Not Available Not Available 02/21/2025 09:50:47 02/26/20 24 02/26/2024 CBC W Auto Diffe renti al panel - Blood interpretati on and review of laboratory results Abnorm al Not Available Not Available 09:50:47 02/26/20 24 02/26/2024 Magne sium [Mass /volu me] in Serum or Plasm a magnesium [mass/volume ] in serum or plasma 2.3 mg/dL low: 1.6mg/ dLhigh : 2.6mg/ dL Magne sium 2.3 1.6 - 2.6 mg/dL 02/25 2:46 AM T [facility] IRA Not Available Not Available 02/21/2025 09:50:47 02/26/20 24 02/26/2024 Magne sium [Mass /volu me] in Serum or Plasm a interpretati on and review of laboratory results Normal Not Available Not Available 02/02 09:50:47 02/26/20 24 02/26/2024 Phosp hate [Mass /volu me] in Serum or Plasm a phosphate [mass/volume ] in serum or plasma 7.4 mg/dL low: 2.9mg/ dLhigh : 5.1mg/ dL high Phosp horus 7.4 (H) 2.9 - 5.1 mg/dL 02/25 2:46 AM CDT [facility] Not Available Not Available 02/21/2025 09:50:47 02/26/20 24 02/26/2024 Phosp hate [Mass /volu me] in Serum or Plasm a interpretati on and review of laboratory results Abnorm al Not Available Not Available 09:50:47 02/26/20 24 02/26/2024 Basic metab olic 2000 panel - Serum or Plasm a urea nitrogen [mass/volume ] in serum or plasma 32 mg/dL low: 7mg/dL high: 26mg/d L high BUN 32 (H) 7 - 26 mg/dL 02/25 2:46 AM CDT [facility] IRA Not Available Not Available 02/21/2025 09:50:47 02/26/20 24 02/26/2024 Basic metab olic 2000 panel - Serum or Plasm a creatinine [mass/volume ] in serum or plasma 5.64 mg/dL low: 0.56mg /dLhig h: 0.96mg /dL high Creat inine 5.64 (H) 0.56 - 0.96 mg/dL 02/25 2:46 AM [facility] IRA Not Available Not Available 02/21/2025 09:50:47 02/26/20 24 02/26/2024 Basic metab olic 2000 panel - Serum or Plasm a sodium [moles/volum e] in serum or plasma 139 mmol/ L low: 136mmo l/Lhig h: 145mmo l/L Sodiu m 139 136 - 145 mmol/ L 02/25 2:46 AM [facility] IRA Not Available Not Available 02/21/2025 09:50:47 02/26/20 24 02/26/2024 Basic metab olic 1999 panel - Serum or Plasm a potassium [moles/volum e] in serum or plasma 4.6 mmol/ L low: 3.5mmo l/Lhig h: 4.5mmo l/L high Potas sium 4.6 (H) 3.5 - 4.5 mmol/ L 02/25 2:46 AM CDT [facility] IRA Not Available Not Available 02/21/2025 09:50:47 02/26/20 24 02/26/2024 Basic metab olic 1999 panel - Serum or Plasm a chloride [moles/volum e] in serum or plasma 102 mmol/ L low: 98mmol /Lhigh : 107mmo l/L Chlor brodie 102 98 - 107 mmol/ L 02/25 2:46 AM CDT [facility] Not Available Not Available 02/21/2025 09:50:47 02/26/20 24 02/26/2024 Basic metab olic 1999 panel - Serum or Plasm a carbon dioxide, total [moles/volum e] in serum or plasma 26 mmol/ L low: 22mmol /Lhigh : 29mmol /L CO2 26 22 - 29 mmol/ L 02/25 2:46 AM CDT [facility] Not Available Not Available 02/21/2025 09:50:47 02/26/20 24 02/26/2024 Basic metab olic 1999 panel - Serum or Plasm a glucose [mass/volume ] in serum or plasma 117 mg/dL low: 70mg/d Lhigh: 115mg/ dL high Gluco se 117 (H) 70 - 115 mg/dL 02/25 2:46 AM CDT [facility] Not Available Not Available 02/21/2025 09:50:47 02/26/20 24 02/26/2024 Basic metab olic 1999 panel - Serum or Plasm a calcium [moles/volum e] in serum or plasma 8.7 mg/dL low: 8.4mg/ dLhigh : 10.2mg /dL Calci um 8.7 8.4 - 10.2 mg/dL 02/25 2:46 AM CDT [facility] Not Available Not Available 02/21/2025 09:50:47 02/26/20 24 02/26/2024 Basic metab olic 1999 panel - Serum or Plasm a anion gap 11 low: 6high: 16 Anion Gap 11 6 - 16 02/25 2:46 AM CDT [facility] Not Available Not Available 02/21/2025 09:50:47 02/26/20 24 02/26/2024 Basic metab olic 2000 panel - Serum or Plasm a urea nitrogen/cre atinine [mass ratio] in serum or plasma 6 low: 7high: 23 low BUN/C reati nine Ratio 6 (L) 7 - 23 02/25 2:46 AM CDT [facility] Not Available Not Available 02/21/2025 09:50:47 02/26/20 24 02/26/2024 Basic metab olic 1999 panel - Serum or Plasm a osmolality calculated 296 text: 275 - 295 mOsm/k g high Osmol ality Calcu lated 296 (H) 275 - 295 mOsm/ kg 02/25 2:46 AM CDT [facility] Not Available Not Available 02/21/2025 09:50:47 02/26/20 24 02/26/2024 Basic metab olic 1999 panel - Serum or Plasm a glomerular filtration rate [volume rate/area] in serum, plasma or blood by creatinine-b ased formula (CKD-epi)/1. 73 sq M 10 text: >=90 mL/min /1.73 m2 low eGFR by CKD-E PI 10 (L) >=90 mL/mi n/1.7 3 m2 02/25 2:46 AM CDT [facility] Not Available Not Available 02/21/2025 09:50:47 02/26/20 24 02/26/2024 Basic metab olic 2000 panel - Serum or Plasm a interpretati on and review of laboratory results Abnorm al Not Available Not Available 09:50:47 02/26/20 24 02/26/2024 Vanco mycin [Mass /volu me] in Serum or Plasm a vancomycin [mass/volume ] in serum or plasma 14.5 ug/mL text: therap eutic ranges not establ ished for random specim ens Vanco mycin Rando m 14.5 Thera peuti c Range s not estab lishe d for rando m speci mens ug/mL 02/25 2:35 AM CDT [facility] Not Available Not Available 02/21/2025 09:50:47 02/26/20 24 02/26/2024 Vanco mycin [Mass /volu me] in Serum or Plasm a Unknown Analyte See instit ution protoc ol. See insti tutio n dameon col. Not Available Not Available 02/21/2025 09:50:47 02/26/20 24 02/26/2024 Vanco mycin [Mass /volu me] in Serum or Plasm a interpretati on and review of laboratory results Normal Not Available Not Available 02/02 09:50:47 02/26/20 24 02/26/2024 Gluco se [Mass /volu me] in Arter ial blood glucose [mass/volume ] in capillary blood by glucometer 113 mg/dL low: 70mg/d Lhigh: 115mg/ dL Gluco se WB/PO C 113 70 - 115 mg/dL 02/25 12:18 AM CDT [facility] Not Available Not Available 02/21/2025 09:50:47 02/26/20 24 02/26/2024 Gluco se [Mass /volu me] in Arter ial blood specimen source identified Cap Finger stick Speci men Type Cap Finge rstic k 02/25 12:18 AM CDT [facility] Not Available Not Available 02/21/2025 09:50:47 02/27/20 24 02/27/2024 Gluco se [Mass /volu me] in Arter ial blood glucose [mass/volume ] in capillary blood by glucometer 94 mg/dL low: 70mg/d Lhigh: 115mg/ dL Gluco se WB/PO C 94 70 - 115 mg/dL 02/26 8:45 PM CDT [facility] Not Available Not Available 02/21/2025 09:50:49 02/27/20 24 02/27/2024 Gluco se [Mass /volu me] in Arter ial blood specimen source identified Cap Finger stick Speci men Type Cap Finge rstic k 02/26 8:45 PM CDT [facility] Not Available Not Available 02/21/2025 09:50:49 02/27/20 24 02/27/2024 Gluco se [Mass /volu me] in Arter ial blood glucose [mass/volume ] in capillary blood by glucometer 128 mg/dL low: 70mg/d Lhigh: 115mg/ dL high Gluco se WB/PO C 128 (H) 70 - 115 mg/dL 02/26 5:36 PM CDT [facility] Not Available Not Available 02/21/2025 09:50:49 02/27/20 24 02/27/2024 Gluco se [Mass /volu me] in Arter ial blood specimen source identified Cap Finger stick Speci men Type Cap Finge rstic k 02/26 5:36 PM CDT [facility] Not Available Not Available 02/21/2025 09:50:49 02/27/20 24 02/27/2024 Gluco se [Mass /volu me] in Arter ial blood interpretati on and review of laboratory results Abnorm al Not Available Not Available 09:50:49 02/27/2002/27/2024 Gluco se [Mass /volu me] in Arter ial blood glucose [mass/volume ] in capillary blood by glucometer 107 mg/dL low: 70mg/d Lhigh: 115mg/ dL Gluco se WB/PO C 107 70 - 115 mg/dL 02/26 12:30 PM CDT [facility] Not Available Not Available 02/21/2025 09:50:49 02/27/20 24 02/27/2024 Gluco se [Mass /volu me] in Arter ial blood specimen source identified Cap Finger stick Speci men Type Cap Finge rstic k 02/26 12:30 PM CDT [facility] Not Available Not Available 02/21/2025 09:50:49 02/27/20 24 02/28/2024 Gluco se [Mass /volu me] in Arter ial blood glucose [mass/volume ] in capillary blood by glucometer 102 mg/dL low: 70mg/d Lhigh: 115mg/ dL Gluco se WB/PO C 102 70 - 115 mg/dL 02/27 6:04 AM CDT [facility] Not Available Not Available 02/21/2025 09:50:48 02/27/20 24 02/28/2024 Gluco se [Mass /volu me] in Arter ial blood specimen source identified Venous Speci men Type Venou s 02/27 6:04 AM CDT [facility] Not Available Not Available 02/21/2025 09:50:48 02/27/20 24 02/27/2024 CBC W Auto Diffe renti al panel - Blood leukocytes [#/volume] in blood by automated count 14.3 text: 4.0 - 10.7 x10e9/ L high WBC 14.3 (H) 4.0 - 10.7 x10E9 /L 02/26 2:33 AM CDT [facility] Not Available Not Available 02/21/2025 09:50:48 02/27/20 24 02/27/2024 CBC W Auto Diffe renti al panel - Blood erythrocytes [#/volume] in blood by automated count 3.16 text: 3.90 - 5.20 x10e12 /L low RBC Count 3.16 (L) 3.90 - 5.20 x10E1 2/L 02/26 2:33 AM CDT [facility] Not Available Not Available 02/21/2025 09:50:48 02/27/20 24 02/27/2024 CBC W Auto Diffe renti al panel - Blood hemoglobin [mass/volume ] in blood 9.2 g/dL low: 11.9g/ dLhigh : 15.8g/ dL low Hemog lobin 9.2 (L) 11.9 - 15.8 g/dL 02/26 2:33 AM T [facility] Not Available Not Available 02/21/2025 09:50:48 02/27/20 24 02/27/2024 CBC W Auto Diffe renti al panel - Blood hematocrit [volume fraction] of blood by automated count 30.3 % low: 34.8%h igh: 46.1% low Hemat ocrit 30.3 (L) 34.8 - 46.1 % 02/26 2:33 AM CDT [facility] Not Available Not Available 02/21/2025 09:50:48 02/27/20 24 02/27/2024 CBC W Auto Diffe renti al panel - Blood MCV [entitic mean volume] in red blood cells by automated count 95.9 fL low: 80fLhi gh: 98fL MCV 95.9 80.0 - 98.0 fL 02/26 2:33 AM [facility] Not Available 02/21/2025 09:50:48 02/27/20 24 02/27/2024 CBC W Auto Diffe renti al panel - Blood MCH [entitic mass] by automated count 29.1 pg low: 26.7pg high: 33.6pg MCH 29.1 26.7 - 33.6 pg 02/26 2:33 AM CD[facility] Not [facility] Not Available 02/21/2025 09:50:48 02/27/2002/27/2024 CBC W Auto Diffe renti al panel - Blood MCHC [entitic mass/volume] in red blood cells by automated count 30.4 g/dL low: 31.7g/ dLhigh : 36.3g/ dL low MCHC 30.4 (L) 31.7 - 36.3 g/dL 02/26 2:33 AM T [facility] Not [facility] Not Available 02/21/2025 09:50:48 02/27/2002/27/2024 CBC W Auto Diffe renti al panel - Blood erythrocyte [distwidth] in red blood cells by automated count 14.2 % low: 11.3%h igh: 14.8% RDW-C V 14.2 11.3 - 14.8 % 02/26 2:33 AM T [facility] Not [facility] Not Available 02/21/2025 09:50:48 02/27/20 24 02/27/2024 CBC W Auto Diffe renti al panel - Blood platelets [#/volume] in blood by automated count 502 text: 150 - 420 x10e9/ L high Plate let Count 502 (H) 150 - 420 x10E9 /L 02/26 2:33 AM CDT [facility] Not Available Not Available 02/21/2025 09:50:48 02/27/20 24 02/27/2024 CBC W Auto Diffe renti al panel - Blood platelet [entitic mean volume] in blood by automated count 9.2 fL low: 7.8fLh igh: 11.4fL MPV 9.2 7.8 - 11.4 fL 02/26 2:33 AM CDT [facility] Not Available Not Available 02/21/2025 09:50:48 02/27/20 24 02/27/2024 CBC W Auto Diffe renti al panel - Blood neutrophils/ leukocytes in blood by automated count 61.4 % low: 41%hig h: 74% Neutr ophil % 61.4 41.0 - 74.0 % 02/26 2:33 AM CDT [facility] Not Available Not Available 02/21/2025 09:50:48 02/27/20 24 02/27/2024 CBC W Auto Diffe renti al panel - Blood lymphocytes/ leukocytes in blood by automated count 18.3 % low: 17%hig h: 47% Lymph ocyte % 18.3 17.0 - 47.0 % 02/26 2:33 AM T [facility] Not Available Not Available 02/21/2025 09:50:48 02/27/20 24 02/27/2024 CBC W Auto Diffe renti al panel - Blood monocytes/le ukocytes in blood by automated count 9.1 % low: 3%high : 11% Monoc yte % 9.1 3.0 - 11.0 % 02/26 2:33 AM T [facility] Not Available Not Available 02/21/2025 09:50:48 02/27/20 24 02/27/2024 CBC W Auto Diffe renti al panel - Blood eosinophils/ leukocytes in blood by automated count 8.9 % low: 0%high : 7% high Eosin ophil % 8.9 (H) 0.0 - 7.0 % 02/26 2:33 AM T [facility] Not Available Not Available 02/21/2025 09:50:48 02/27/20 24 02/27/2024 CBC W Auto Diffe renti al panel - Blood basophils/le ukocytes in blood by automated count 0.5 % low: 0%high : 1.6% Basop hil % 0.5 0.0 - 1.6 % 02/26 2:33 AM CDT [facility] Not Available Not Available 02/21/2025 09:50:48 02/27/20 24 02/27/2024 CBC W Auto Diffe renti al panel - Blood immature granulocytes /leukocytes in blood by automated count 1.8 % low: 0%high : 1% high Immat ure Granu locyt es % 1.8 (H) 0.0 - 1.0 % 02/26 2:33 AM CDT [facility] Not Available Not Available 02/21/2025 09:50:48 02/27/20 24 02/27/2024 CBC W Auto Diffe renti al panel - Blood neutrophils [#/volume] in blood by automated count 8.77 text: 1.60 - 7.50 x10e9/ L high Neutr ophil Absol [place] 8.77 (H) 1.60 - 7.50 x10E9 /L 02/26 2:33 AM CDT [facility] Not Available Not Available 02/21/2025 09:50:48 02/27/20 24 02/27/2024 CBC W Auto Diffe renti al panel - Blood lymphocytes [#/volume] in blood by automated count 2.61 text: 1.00 - 4.40 x10e9/ L Lymph ocyte Absol [place] 2.61 1.00 - 4.40 x10E9 /L 02/26 2:33 AM CDT [facility] Not Available Not Available 02/21/2025 09:50:48 02/27/20 24 02/27/2024 CBC W Auto Diffe renti al panel - Blood monocytes [#/volume] in blood by automated count 1.3 text: 0.15 - 1.00 x10e9/ L high Monoc yte Absol [place] 1.30 (H) 0.15 - 1.00 x10E9 /L 02/26 2:33 AM CDT [facility] Not Available Not Available 02/21/2025 09:50:48 02/27/20 24 02/27/2024 CBC W Auto Diffe renti al panel - Blood eosinophils [#/volume] in blood 1.27 text: 0.00 - 0.60 x10e9/ L high Eosin ophil Absol [place] 1.27 (H) 0.00 - 0.60 x10E9 /L 02/26 2:33 AM CDT [facility] Not [facility] Not Available 02/21/2025 09:50:48 02/27/20 24 02/27/2024 CBC W Auto Diffe renti al panel - Blood basophils [#/volume] in blood by automated count 0.07 text: 0.00 - 0.13 x10e9/ L Basop hil Absol [place] 0.07 0.00 - 0.13 x10E9 /L 02/26 2:33 AM CDT [facility] Not Available Not Available 02/21/2025 09:50:48 02/27/20 24 02/27/2024 CBC W Auto Diffe renti al panel - Blood interpretati on and review of laboratory results Abnorm al Not Available Not Available 09:50:48 02/27/20 24 02/27/2024 Magne sium [Mass /volu me] in Serum or Plasm a magnesium [mass/volume ] in serum or plasma 2.1 mg/dL low: 1.6mg/ dLhigh : 2.6mg/ dL Magne sium 2.1 1.6 - 2.6 mg/dL 02/26 2:54 AM CDT [facility] Not Available Not Available 02/21/2025 09:50:48 02/27/20 24 02/27/2024 Magne sium [Mass /volu me] in Serum or Plasm a interpretati on and review of laboratory results Normal Not Available Not Available 02/02 09:50:48 02/27/20 24 02/27/2024 Phosp hate [Mass /volu me] in Serum or Plasm a phosphate [mass/volume ] in serum or plasma 5.7 mg/dL low: 2.9mg/ dLhigh : 5.1mg/ dL high Phosp horus 5.7 (H) 2.9 - 5.1 mg/dL 02/26 2:54 AM CDT [facility] Not Available Not Available 02/21/2025 09:50:48 02/27/2002/27/2024 Phosp hate [Mass /volu me] in Serum or Plasm a interpretati on and review of laboratory results Abnorm al Not Available Not Available 09:50:48 02/27/2002/27/2024 Basic metab olic 1999 panel - Serum or Plasm a urea nitrogen [mass/volume ] in serum or plasma 29 mg/dL low: 7mg/dL high: 26mg/d L high BUN 29 (H) 7 - 26 mg/dL 02/26 2:54 AM CDT [facility] Not Available Not Available 02/21/2025 09:50:48 02/27/2002/27/2024 Basic metab olic 1999 panel - Serum or Plasm a creatinine [mass/volume ] in serum or plasma 5.07 mg/dL low: 0.56mg /dLhig h: 0.96mg /dL high Creat inine 5.07 (H) 0.56 - 0.96 mg/dL 02/26 2:54 AM [facility] Not Available Not Available 02/21/2025 09:50:48 02/27/2002/27/2024 Basic metab olic 1999 panel - Serum or Plasm a sodium [moles/volum e] in serum or plasma 136 mmol/ L low: 136mmo l/Lhig h: 145mmo l/L Sodiu m 136 136 - 145 mmol/ L 02/26 2:54 AM CDT [facility] Not Available Not Available 02/21/2025 09:50:48 02/27/20 24 02/27/2024 Basic metab olic 1999 panel - Serum or Plasm a potassium [moles/volum e] in serum or plasma 4.5 mmol/ L low: 3.5mmo l/Lhig h: 4.5mmo l/L Potas sium 4.5 3.5 - 4.5 mmol/ L 02/26 2:54 AM CDT [facility] Not Available Not Available 02/21/2025 09:50:48 02/27/20 24 02/27/2024 Basic metab olic 1999 panel - Serum or Plasm a chloride [moles/volum e] in serum or plasma 104 mmol/ L low: 98mmol /Lhigh : 107mmo l/L Chlor brodie 104 98 - 107 mmol/ L 02/26 2:54 AM CDT [facility] Not Available Not Available 02/21/2025 09:50:48 02/27/20 24 02/27/2024 Basic metab olic 1999 panel - Serum or Plasm a carbon dioxide, total [moles/volum e] in serum or plasma 25 mmol/ L low: 22mmol /Lhigh : 29mmol /L CO2 25 22 - 29 mmol/ L 02/26 2:54 AM CDT [facility] Not Available Not Available 02/21/2025 09:50:48 02/27/20 24 02/27/2024 Basic metab olic 1999 panel - Serum or Plasm a glucose [mass/volume ] in serum or plasma 102 mg/dL low: 70mg/d Lhigh: 115mg/ dL Gluco se 102 70 - 115 mg/dL 02/26 2:54 AM CDT [facility] Not Available Not Available 02/21/2025 09:50:48 02/27/20 24 02/27/2024 Basic metab olic 1999 panel - Serum or Plasm a calcium [moles/volum e] in serum or plasma 8.4 mg/dL low: 8.4mg/ dLhigh : 10.2mg /dL Calci um 8.4 8.4 - 10.2 mg/dL 02/26 2:54 AM CDT [facility] Not Available Not Available 02/21/2025 09:50:48 02/27/20 24 02/27/2024 Basic metab olic 1999 panel - Serum or Plasm a anion gap 7 low: 6high: 16 Anion Gap 7 6 - 16 02/26 2:54 AM CDT [facility] Not Available Not Available 02/21/2025 09:50:48 02/27/20 24 02/27/2024 Basic metab olic 2000 panel - Serum or Plasm a urea nitrogen/cre atinine [mass ratio] in serum or plasma 6 low: 7high: 23 low BUN/C reati nine Ratio 6 (L) 7 - 23 02/26 2:54 AM T [facility] Not Available Not Available 02/21/2025 09:50:48 02/27/20 24 02/27/2024 Basic metab olic 2000 panel - Serum or Plasm a osmolality calculated 288 text: 275 - 295 mOsm/k g Osmol ality Calcu lated 288 275 - 295 mOsm/ kg 02/26 2:54 AM CDT [facility] Not Available Not Available 02/21/2025 09:50:48 02/27/20 24 02/27/2024 Basic metab olic 2000 panel - Serum or Plasm a glomerular filtration rate [volume rate/area] in serum, plasma or blood by creatinine-b ased formula (CKD-epi)/1. 73 sq M 11 text: >=90 mL/min /1.73 m2 low eGFR by CKD-E PI 11 (L) >=90 mL/mi n/1.7 3 m2 02/26 2:54 AM T [facility] Not Available Not Available 02/21/2025 09:50:48 02/27/20 24 02/27/2024 Basic metab olic 2000 panel - Serum or Plasm a interpretati on and review of laboratory results Abnorm al Not Available Not Available 09:50:48 02/27/20 24 02/27/2024 Gluco se [Mass /volu me] in Arter ial blood glucose [mass/volume ] in capillary blood by glucometer 134 mg/dL low: 70mg/d Lhigh: 115mg/ dL high Gluco se WB/PO C 134 (H) 70 - 115 mg/dL 02/26 12:06 AM [facility] Not Available Not Available 02/21/2025 09:50:48 02/27/20 24 02/27/2024 Gluco se [Mass /volu me] in Arter ial blood specimen source identified Cap Finger stick Speci men Type Cap Finge rstic k 02/26 12:06 AM CDT [facility] Not Available Not Available 02/21/2025 09:50:48 02/27/20 24 02/27/2024 Gluco se [Mass /volu me] in Arter ial blood interpretati on and review of laboratory results Abnorm al Not Available Not Available 09:50:48 02/28/20 24 02/28/2024 Gluco se [Mass /volu me] in Arter ial blood glucose [mass/volume ] in capillary blood by glucometer 130 mg/dL low: 70mg/d Lhigh: 115mg/ dL high Gluco se WB/PO C 130 (H) 70 - 115 mg/dL 02/27 9:24 PM CDT [facility] Not Available Not Available 02/21/2025 09:50:50 02/28/20 24 02/28/2024 Gluco se [Mass /volu me] in Arter ial blood specimen source identified Cap Finger stick Speci men Type Cap Finge rstic k 02/27 9:24 PM CDT [facility] Not Available Not Available 02/21/2025 09:50:50 02/28/20 24 02/28/2024 Gluco se [Mass /volu me] in Arter ial blood interpretati on and review of laboratory results Abnorm al Not Available Not Available 09:50:50 02/28/20 24 02/28/2024 Gluco se [Mass /volu me] in Arter ial blood glucose [mass/volume ] in capillary blood by glucometer 103 mg/dL low: 70mg/d Lhigh: 115mg/ dL Gluco se WB/PO C 103 70 - 115 mg/dL 02/27 5:37 PM CDT [facility] Not Available Not Available 02/21/2025 09:50:50 02/28/20 24 02/28/2024 Gluco se [Mass /volu me] in Arter ial blood specimen source identified Cap Finger stick Speci men Type Cap Finge rstic k 02/27 5:37 PM CDT [facility] Not Available Not Available 02/21/2025 09:50:50 02/28/20 24 02/28/2024 Gluco se [Mass /volu me] in Arter ial blood glucose [mass/volume ] in capillary blood by glucometer 121 mg/dL low: 70mg/d Lhigh: 115mg/ dL high Gluco se WB/PO C 121 (H) 70 - 115 mg/dL 02/27 11:31 AM CDT [facility] Not Available Not Available 02/21/2025 09:50:50 02/28/20 24 02/28/2024 Gluco se [Mass /volu me] in Arter ial blood specimen source identified Cap Finger stick Speci men Type Cap Finge rstic k 02/27 11:31 AM CDT [facility] Not Available Not Available 02/21/2025 09:50:50 02/28/20 24 02/28/2024 Gluco se [Mass /volu me] in Arter ial blood interpretati on and review of laboratory results Abnorm al Not Available Not Available 09:50:50 02/28/20 24 02/28/2024 Gluco se [Mass /volu me] in Arter ial blood glucose [mass/volume ] in capillary blood by glucometer 116 mg/dL low: 70mg/d Lhigh: 115mg/ dL high Gluco se WB/PO C 116 (H) 70 - 115 mg/dL 02/27 7:42 AM CDT [facility] Not Available Not Available 02/21/2025 09:50:49 02/28/20 24 02/28/2024 Gluco se [Mass /volu me] in Arter ial blood specimen source identified Cap Finger stick Speci men Type Cap Finge rstic k 02/27 7:42 AM CDT [facility] Not Available Not Available 02/21/2025 09:50:49 02/28/20 24 02/28/2024 Gluco se [Mass /volu me] in Arter ial blood interpretati on and review of laboratory results Abnorm al Not Available Not Available 09:50:49 02/28/20 24 02/28/2024 CBC W Auto Diffe renti al panel - Blood leukocytes [#/volume] in blood by automated count 15.4 text: 4.0 - 10.7 x10e9/ L high WBC 15.4 (H) 4.0 - 10.7 x10E9 /L 02/27 3:41 AM CDT [facility] Not Available Not Available 02/21/2025 09:50:49 02/28/20 24 02/28/2024 CBC W Auto Diffe renti al panel - Blood erythrocytes [#/volume] in blood by automated count 3.02 text: 3.90 - 5.20 x10e12 /L low RBC Count 3.02 (L) 3.90 - 5.20 x10E1 2/L 02/27 3:41 AM CDT [facility] Not Available Not Available 02/21/2025 09:50:49 02/28/2002/28/2024 CBC W Auto Diffe renti al panel - Blood hemoglobin [mass/volume ] in blood 8.9 g/dL low: 11.9g/ dLhigh : 15.8g/ dL low Hemog lobin 8.9 (L) 11.9 - 15.8 g/dL 02/27 3:41 AM T [facility] Not Available Not Available 02/21/2025 09:50:49 02/28/20 24 02/28/2024 CBC W Auto Diffe renti al panel - Blood hematocrit [volume fraction] of blood by automated count 29 % low: 34.8%h igh: 46.1% low Hemat ocrit 29.0 (L) 34.8 - 46.1 % 02/27 3:41 AM CDT [facility] Not Available Not Available 02/21/2025 09:50:49 02/28/20 24 02/28/2024 CBC W Auto Diffe renti al panel - Blood MCV [entitic mean volume] in red blood cells by automated count 96 fL low: 80fLhi gh: 98fL MCV 96.0 80.0 - 98.0 fL 02/27 3:41 AM CDT [facility] Not Available Not Available 02/21/2025 09:50:49 02/28/20 24 02/28/2024 CBC W Auto Diffe renti al panel - Blood MCH [entitic mass] by automated count 29.5 pg low: 26.7pg high: 33.6pg MCH 29.5 26.7 - 33.6 pg 02/27 3:41 AM CDT [facility] Not Available Not Available 02/21/2025 09:50:49 02/28/20 24 02/28/2024 CBC W Auto Diffe renti al panel - Blood MCHC [entitic mass/volume] in red blood cells by automated count 30.7 g/dL low: 31.7g/ dLhigh : 36.3g/ dL low MCHC 30.7 (L) 31.7 - 36.3 g/dL 02/27 3:41 AM CDT [facility] Not Available Not Available 02/21/2025 09:50:49 02/28/20 24 02/28/2024 CBC W Auto Diffe renti al panel - Blood erythrocyte [distwidth] in red blood cells by automated count 14.1 % low: 11.3%h igh: 14.8% RDW-C V 14.1 11.3 - 14.8 % 02/27 3:41 AM T [facility] Not Available Not Available 02/21/2025 09:50:49 02/28/20 24 02/28/2024 CBC W Auto Diffe renti al panel - Blood platelets [#/volume] in blood by automated count 501 text: 150 - 420 x10e9/ L high Plate let Count 501 (H) 150 - 420 x10E9 /L 02/27 3:41 AM CDT [facility] Not Available Not Available 02/21/2025 09:50:49 02/28/20 24 02/28/2024 CBC W Auto Diffe renti al panel - Blood platelet [entitic mean volume] in blood by automated count 9 fL low: 7.8fLh igh: 11.4fL MPV 9.0 7.8 - 11.4 fL 02/27 3:41 AM CDT [facility] Not Available Not Available 02/21/2025 09:50:49 02/28/20 24 02/28/2024 CBC W Auto Diffe renti al panel - Blood neutrophils/ leukocytes in blood by automated count 65 % low: 41%hig h: 74% Neutr ophil % 65.0 41.0 - 74.0 % 02/27 3:41 AM CDT [facility] Not Available Not Available 02/21/2025 09:50:49 02/28/20 24 02/28/2024 CBC W Auto Diffe renti al panel - Blood lymphocytes/ leukocytes in blood by automated count 15.4 % low: 17%hig h: 47% low Lymph ocyte % 15.4 (L) 17.0 - 47.0 % 02/27 3:41 AM CDT [facility] Not Available Not Available 02/21/2025 09:50:49 02/28/20 24 02/28/2024 CBC W Auto Diffe renti al panel - Blood monocytes/le ukocytes in blood by automated count 8 % low: 3%high : 11% Monoc yte % 8.0 3.0 - 11.0 % 02/27 3:41 AM CDT [facility] Not Available Not Available 02/21/2025 09:50:49 02/28/20 24 02/28/2024 CBC W Auto Diffe renti al panel - Blood eosinophils/ leukocytes in blood by automated count 9.9 % low: 0%high : 7% high Eosin ophil % 9.9 (H) 0.0 - 7.0 % 02/27 3:41 AM CDT [facility] Not Available Not Available 02/21/2025 09:50:49 02/28/20 24 02/28/2024 CBC W Auto Diffe renti al panel - Blood basophils/le ukocytes in blood by automated count 0.5 % low: 0%high : 1.6% Basop hil % 0.5 0.0 - 1.6 % 02/27 3:41 AM CDT [facility] Not Available Not Available 02/21/2025 09:50:49 02/28/20 24 02/28/2024 CBC W Auto Diffe renti al panel - Blood immature granulocytes /leukocytes in blood by automated count 1.2 % low: 0%high : 1% high Immat ure Granu locyt es % 1.2 (H) 0.0 - 1.0 % 02/27 3:41 AM CDT [facility] Not Available Not Available 02/21/2025 09:50:49 02/28/20 24 02/28/2024 CBC W Auto Diffe renti al panel - Blood neutrophils [#/volume] in blood by automated count 10.02 text: 1.60 - 7.50 x10e9/ L high Neutr ophil Absol [place] 10.02 (H) 1.60 - 7.50 x10E9 /L 02/27 3:41 AM CDT [facility] Not Available Not Available 02/21/2025 09:50:49 02/28/20 24 02/28/2024 CBC W Auto Diffe renti al panel - Blood lymphocytes [#/volume] in blood by automated count 2.37 text: 1.00 - 4.40 x10e9/ L Lymph ocyte Absol [place] 2.37 1.00 - 4.40 x10E9 /L 02/27 3:41 AM CDT [facility] Not Available Not Available 02/21/2025 09:50:49 02/28/20 24 02/28/2024 CBC W Auto Diffe renti al panel - Blood monocytes [#/volume] in blood by automated count 1.24 text: 0.15 - 1.00 x10e9/ L high Monoc yte Absol [place] 1.24 (H) 0.15 - 1.00 x10E9 /L 02/27 3:41 AM CDT [facility] IRA Not Available Not Available 02/21/2025 09:50:49 02/28/20 24 02/28/2024 CBC W Auto Diffe renti al panel - Blood eosinophils [#/volume] in blood 1.53 text: 0.00 - 0.60 x10e9/ L high Eosin ophil Absol [place] 1.53 (H) 0.00 - 0.60 x10E9 /L 02/27 3:41 AM CDT [facility] Not Available Not Available 02/21/2025 09:50:49 02/28/20 24 02/28/2024 CBC W Auto Diffe renti al panel - Blood basophils [#/volume] in blood by automated count 0.07 text: 0.00 - 0.13 x10e9/ L Basop hil Absol [place] 0.07 0.00 - 0.13 x10E9 /L 02/27 3:41 AM CDT [facility] Not Available Not Available 02/21/2025 09:50:49 02/28/20 24 02/28/2024 CBC W Auto Diffe renti al panel - Blood interpretati on and review of laboratory results Abnorm al Not Available Not Available 09:50:49 02/28/20 24 02/28/2024 Magne sium [Mass /volu me] in Serum or Plasm a magnesium [mass/volume ] in serum or plasma 2 mg/dL low: 1.6mg/ dLhigh : 2.6mg/ dL Magne sium 2.0 1.6 - 2.6 mg/dL 02/27 4:20 AM [facility] Not Available Not Available 02/21/2025 09:50:49 02/28/20 24 02/28/2024 Magne sium [Mass /volu me] in Serum or Plasm a interpretati on and review of laboratory results Normal Not Available Not Available 02/02 09:50:49 02/28/20 24 02/28/2024 Phosp hate [Mass /volu me] in Serum or Plasm a phosphate [mass/volume ] in serum or plasma 5.3 mg/dL low: 2.9mg/ dLhigh : 5.1mg/ dL high Phosp horus 5.3 (H) 2.9 - 5.1 mg/dL 02/27 4:20 AM CDT [facility] Not Available Not Available 02/21/2025 09:50:49 02/28/20 24 02/28/2024 Phosp hate [Mass /volu me] in Serum or Plasm a interpretati on and review of laboratory results Abnorm al Not Available Not Available 09:50:49 02/28/20 24 02/28/2024 Basic metab olic 1999 panel - Serum or Plasm a urea nitrogen [mass/volume ] in serum or plasma 26 mg/dL low: 7mg/dL high: 26mg/d L BUN 26 7 - 26 mg/dL 02/27 4:20 AM CDT [facility] IRA Not Available Not Available 02/21/2025 09:50:49 02/28/20 24 02/28/2024 Basic metab olic 1999 panel - Serum or Plasm a creatinine [mass/volume ] in serum or plasma 4.59 mg/dL low: 0.56mg /dLhig h: 0.96mg /dL high Creat inine 4.59 (H) 0.56 - 0.96 mg/dL 02/27 4:20 AM T [facility] IRA Not Available Not Available 02/21/2025 09:50:49 02/28/20 24 02/28/2024 Basic metab olic 1999 panel - Serum or Plasm a sodium [moles/volum e] in serum or plasma 134 mmol/ L low: 136mmo l/Lhig h: 145mmo l/L low Sodiu m 134 (L) 136 - 145 mmol/ L 02/27 4:20 AM T [facility] IRA Not Available Not Available 02/21/2025 09:50:49 02/28/20 24 02/28/2024 Basic metab olic 1999 panel - Serum or Plasm a potassium [moles/volum e] in serum or plasma 4.4 mmol/ L low: 3.5mmo l/Lhig h: 4.5mmo l/L Potas sium 4.4 3.5 - 4.5 mmol/ L 02/27 4:20 AM CDT [facility] IRA Not Available Not Available 02/21/2025 09:50:49 02/28/20 24 02/28/2024 Basic metab olic 1999 panel - Serum or Plasm a chloride [moles/volum e] in serum or plasma 102 mmol/ L low: 98mmol /Lhigh : 107mmo l/L Chlor brodie 102 98 - 107 mmol/ L 02/27 4:20 AM CDT [facility] IRA Not Available Not Available 02/21/2025 09:50:49 02/28/20 24 02/28/2024 Basic metab olic 1999 panel - Serum or Plasm a carbon dioxide, total [moles/volum e] in serum or plasma 26 mmol/ L low: 22mmol /Lhigh : 29mmol /L CO2 26 22 - 29 mmol/ L 02/27 4:20 AM CDT [facility] IRA Not Available Not Available 02/21/2025 09:50:49 02/28/20 24 02/28/2024 Basic metab olic 1999 panel - Serum or Plasm a glucose [mass/volume ] in serum or plasma 111 mg/dL low: 70mg/d Lhigh: 115mg/ dL Gluco se 111 70 - 115 mg/dL 02/27 4:20 AM T [facility] IRA Not Available Not Available 02/21/2025 09:50:49 02/28/20 24 02/28/2024 Basic metab olic 1999 panel - Serum or Plasm a calcium [moles/volum e] in serum or plasma 8.7 mg/dL low: 8.4mg/ dLhigh : 10.2mg /dL Calci um 8.7 8.4 - 10.2 mg/dL 02/27 4:20 AM T [facility] IRA Not Available Not Available 02/21/2025 09:50:49 02/28/20 24 02/28/2024 Basic metab olic 1999 panel - Serum or Plasm a anion gap 6 low: 6high: 16 Anion Gap 6 6 - 16 02/27 4:20 AM CDT [facility] IRA Not Available Not Available 02/21/2025 09:50:49 02/28/20 24 02/28/2024 Basic metab olic 2000 panel - Serum or Plasm a urea nitrogen/cre atinine [mass ratio] in serum or plasma 6 low: 7high: 23 low BUN/C reati nine Ratio 6 (L) 7 - 23 02/27 4:20 AM T [facility] IRA Not Available Not Available 02/21/2025 09:50:49 02/28/20 24 02/28/2024 Basic metab olic 2000 panel - Serum or Plasm a osmolality calculated 283 text: 275 - 295 mOsm/k g Osmol rosa maria Campuzano lated 283 275 - 295 mOsm/ kg 02/27 4:20 AM [facility] IRA Not Available Not Available 02/21/2025 09:50:49 02/28/20 24 02/28/2024 Basic metab olic 2000 panel - Serum or Plasm a glomerular filtration rate [volume rate/area] in serum, plasma or blood by creatinine-b ased formula (CKD-epi)/1. 73 sq M 12 text: >=90 mL/min /1.73 m2 low eGFR by CKD-E PI 12 (L) >=90 mL/mi n/1.7 3 m2 02/27 4:20 AM [facility] IRA Not Available Not Available 02/21/2025 09:50:49 02/28/20 24 02/28/2024 Basic metab olic 2000 panel - Serum or Plasm a interpretati on and review of laboratory results Abnorm al Not Available Not Available 09:50:49 02/28/20 24 02/28/2024 Vanco mycin [Mass /volu me] in Serum or Plasm a vancomycin [mass/volume ] in serum or plasma 24.6 ug/mL text: therap eutic ranges not establ ished for random specim ens Vanco mycin Rando m 24.6 Thera peuti c Range s not estab lishe d for rando m speci mens ug/mL 02/27 4:00 AM [facility] IRA Not Available Not Available 02/21/2025 09:50:49 02/28/20 24 02/28/2024 Vanco mycin [Mass /volu me] in Serum or Plasm a Unknown Analyte See instit ution protoc ol. See insti tutio n dameon col. Not Available Not Available 02/21/2025 09:50:49 02/28/20 24 02/28/2024 Vanco mycin [Mass /volu me] in Serum or Plasm a interpretati on and review of laboratory results Normal Not Available Not Available 02/02 09:50:49 02/28/20 24 02/28/2024 Gluco se [Mass /volu me] in Arter ial blood glucose [mass/volume ] in capillary blood by glucometer 124 mg/dL low: 70mg/d Lhigh: 115mg/ dL high Gluco se WB/PO C 124 (H) 70 - 115 mg/dL 02/27 12:09 AM CDT [facility] IRA Not Available Not Available 02/21/2025 09:50:49 02/28/20 24 02/28/2024 Gluco se [Mass /volu me] in Arter ial blood specimen source identified Cap Finger stick Speci men Type Cap Tanja rstic k 02/27 12:09 AM CDT [facility] IRA Not Available Not Available 02/21/2025 09:50:49 02/28/20 24 02/28/2024 Gluco se [Mass /volu me] in Arter ial blood interpretati on and review of laboratory results Abnorm al Not Available Not Available 09:50:49 02/29/20 24 02/29/2024 Gluco se [Mass /volu me] in Arter ial blood glucose [mass/volume ] in capillary blood by glucometer 177 mg/dL low: 70mg/d Lhigh: 115mg/ dL high Gluco se WB/PO C 177 (H) 70 - 115 mg/dL 02/28 8:43 PM CDT [facility] IRA Not Available Not Available 02/21/2025 09:50:51 02/29/20 24 02/29/2024 Gluco se [Mass /volu me] in Arter ial blood specimen source identified Cap Finger stick Speci men Type Cap Finge rstic k 02/28 8:43 PM CDT [facility] IRA Not Available Not Available 02/21/2025 09:50:51 02/29/20 24 02/29/2024 Gluco se [Mass /volu me] in Arter ial blood interpretati on and review of laboratory results Abnorm al Not Available Not Available 09:50:51 02/29/20 24 02/29/2024 Gluco se [Mass /volu me] in Arter ial blood glucose [mass/volume ] in capillary blood by glucometer 133 mg/dL low: 70mg/d Lhigh: 115mg/ dL high Gluco se WB/PO C 133 (H) 70 - 115 mg/dL 02/28 5:58 PM CDT [facility] IRA Not Available Not Available 02/21/2025 09:50:51 02/29/20 24 02/29/2024 Gluco se [Mass /volu me] in Arter ial blood specimen source identified Venous Speci men Type Venou s 02/28 5:58 PM CDT [facility] IRA Not Available Not Available 02/21/2025 09:50:51 02/29/20 24 02/29/2024 Gluco se [Mass /volu me] in Arter ial blood interpretati on and review of laboratory results Abnorm al Not Available Not Available 09:50:51 02/29/20 24 02/29/2024 Gluco se [Mass /volu me] in Arter ial blood glucose [mass/volume ] in capillary blood by glucometer 122 mg/dL low: 70mg/d Lhigh: 115mg/ dL high Gluco se WB/PO C 122 (H) 70 - 115 mg/dL 02/28 11:56 AM T [facility] IRA Not Available Not Available 02/21/2025 09:50:51 02/29/20 24 02/29/2024 Gluco se [Mass /volu me] in Arter ial blood specimen source identified Venous Speci men Type Venou s 02/28 11:56 AM CDT [facility] IRA Not Available Not Available 02/21/2025 09:50:51 02/29/20 24 02/29/2024 Gluco se [Mass /volu me] in Arter ial blood interpretati on and review of laboratory results Abnorm al Not Available Not Available 09:50:51 02/29/20 24 02/29/2024 CBC W Auto Diffe renti al panel - Blood leukocytes [#/volume] in blood by automated count 14 text: 4.0 - 10.7 x10e9/ L high WBC 14.0 (H) 4.0 - 10.7 x10E9 /L 02/28 2:06 AM CDT [facility] IRA Not Available Not Available 02/21/2025 09:50:50 02/29/20 24 02/29/2024 CBC W Auto Diffe renti al panel - Blood erythrocytes [#/volume] in blood by automated count 3.09 text: 3.90 - 5.20 x10e12 /L low RBC Count 3.09 (L) 3.90 - 5.20 x10E1 2/L 02/28 2:06 AM T [facility] IRA Not Available Not Available 02/21/2025 09:50:50 02/29/20 24 02/29/2024 CBC W Auto Diffe hanhti al panel - Blood hemoglobin [mass/volume ] in blood 9 g/dL low: 11.9g/ dLhigh : 15.8g/ dL low Hemog lobin 9.0 (L) 11.9 - 15.8 g/dL 02/28 2:06 AM T [facility] IRA Not Available Not Available 02/21/2025 09:50:50 02/29/20 24 02/29/2024 CBC W Auto Diffe hanhti al panel - Blood hematocrit [volume fraction] of blood by automated count 29.5 % low: 34.8%h igh: 46.1% low Hemat ocrit 29.5 (L) 34.8 - 46.1 % 02/28 2:06 AM [facility] IRA Not Available Not Available 02/21/2025 09:50:50 02/29/20 24 02/29/2024 CBC W Auto Diffe renti al panel - Blood MCV [entitic mean volume] in red blood cells by automated count 95.5 fL low: 80fLhi gh: 98fL MCV 95.5 80.0 - 98.0 fL 02/28 2:06 AM T [facility] IRA Not Available Not Available 02/21/2025 09:50:50 02/29/20 24 02/29/2024 CBC W Auto Diffe renti al panel - Blood MCH [entitic mass] by automated count 29.1 pg low: 26.7pg high: 33.6pg MCH 29.1 26.7 - 33.6 pg 02/28 2:06 AM CDT [facility] [employer] [facility] IRA Not Available Not Available 02/21/2025 09:50:50 02/29/20 24 02/29/2024 CBC W Auto Diffe renti al panel - Blood MCHC [entitic mass/volume] in red blood cells by automated count 30.5 g/dL low: 31.7g/ dLhigh : 36.3g/ dL low MCHC 30.5 (L) 31.7 - 36.3 g/dL 02/28 2:06 AM T [facility] IRA Not Available Not Available 02/21/2025 09:50:50 02/29/20 24 02/29/2024 CBC W Auto Diffe renti al panel - Blood erythrocyte [distwidth] in red blood cells by automated count 14.1 % low: 11.3%h igh: 14.8% RDW-C V 14.1 11.3 - 14.8 % 02/28 2:06 AM [facility] IRA Not Available Not Available 02/21/2025 09:50:50 02/29/20 24 02/29/2024 CBC W Auto Diffe renti al panel - Blood platelets [#/volume] in blood by automated count 534 text: 150 - 420 x10e9/ L high Plate let Count 534 (H) 150 - 420 x10E9 /L 02/28 2:06 AM [employer] [facility] Not Available Not Available 02/21/2025 09:50:50 02/29/20 24 02/29/2024 CBC W Auto Diffe renti al panel - Blood platelet [entitic mean volume] in blood by automated count 9 fL low: 7.8fLh igh: 11.4fL MPV 9.0 7.8 - 11.4 fL 02/28 2:06 AM T [facility] Not Available Not Available 02/21/2025 09:50:50 02/29/20 24 02/29/2024 CBC W Auto Diffe renti al panel - Blood neutrophils/ leukocytes in blood by automated count 59.4 % low: 41%hig h: 74% Neutr ophil % 59.4 41.0 - 74.0 % 02/28 2:06 AM CDT [facility] IRA Not Available Not Available 02/21/2025 09:50:50 02/29/20 24 02/29/2024 CBC W Auto Diffe renti al panel - Blood lymphocytes/ leukocytes in blood by automated count 20 % low: 17%hig h: 47% Lymph ocyte % 20.0 17.0 - 47.0 % 02/28 2:06 AM CDT [facility] IRA Not Available Not Available 02/21/2025 09:50:50 02/29/20 24 02/29/2024 CBC W Auto Diffe renti al panel - Blood monocytes/le ukocytes in blood by automated count 8.4 % low: 3%high : 11% Monoc yte % 8.4 3.0 - 11.0 % 02/28 2:06 AM CDT [facility] IRA Not Available Not Available 02/21/2025 09:50:50 02/29/20 24 02/29/2024 CBC W Auto Diffe renti al panel - Blood eosinophils/ leukocytes in blood by automated count 10.6 % low: 0%high : 7% high Eosin ophil % 10.6 (H) 0.0 - 7.0 % 02/28 2:06 AM CDT [facility] IRA Not Available Not Available 02/21/2025 09:50:50 02/29/20 24 02/29/2024 CBC W Auto Diffe renti al panel - Blood basophils/le ukocytes in blood by automated count 0.5 % low: 0%high : 1.6% Basop hil % 0.5 0.0 - 1.6 % 02/28 2:06 AM CDT [facility] IRA Not Available Not Available 02/21/2025 09:50:50 02/29/20 24 02/29/2024 CBC W Auto Diffe renti al panel - Blood immature granulocytes /leukocytes in blood by automated count 1.1 % low: 0%high : 1% high Immat ure Granu locyt es % 1.1 (H) 0.0 - 1.0 % 02/28 2:06 AM CDT [facility] Not Available Not Available 02/21/2025 09:50:50 02/29/20 24 02/29/2024 CBC W Auto Diffe renti al panel - Blood neutrophils [#/volume] in blood by automated count 8.3 text: 1.60 - 7.50 x10e9/ L high Neutr ophil Absol [place] 8.30 (H) 1.60 - 7.50 x10E9 /L 02/28 2:06 AM CDT [facility] Not Available Not Available 02/21/2025 09:50:50 02/29/20 24 02/29/2024 CBC W Auto Diffe renti al panel - Blood lymphocytes [#/volume] in blood by automated count 2.8 text: 1.00 - 4.40 x10e9/ L Lymph ocyte Absol [place] 2.80 1.00 - 4.40 x10E9 /L 02/28 2:06 AM CDT [facility] IRA Not Available Not Available 02/21/2025 09:50:50 02/29/20 24 02/29/2024 CBC W Auto Diffe renti al panel - Blood monocytes [#/volume] in blood by automated count 1.17 text: 0.15 - 1.00 x10e9/ L high Monoc yte Absol [place] 1.17 (H) 0.15 - 1.00 x10E9 /L 02/28 2:06 AM CDT [facility] Not Available Not Available 02/21/2025 09:50:50 02/29/20 24 02/29/2024 CBC W Auto Diffe renti al panel - Blood eosinophils [#/volume] in blood 1.48 text: 0.00 - 0.60 x10e9/ L high Eosin ophil Absol [place] 1.48 (H) 0.00 - 0.60 x10E9 /L 02/28 2:06 AM [facility] IRA Not Available Not Available 02/21/2025 09:50:50 02/29/20 24 02/29/2024 CBC W Auto Diffe renti al panel - Blood basophils [#/volume] in blood by automated count 0.07 text: 0.00 - 0.13 x10e9/ L Basop hil Absol [place] 0.07 0.00 - 0.13 x10E9 /L 02/28 2:06 AM [facility] IRA Not Available Not Available 02/21/2025 09:50:50 02/29/20 24 02/29/2024 CBC W Auto Diffe renti al panel - Blood interpretati on and review of laboratory results Abnorm al Not Available Not Available 09:50:50 02/29/20 24 02/29/2024 Magne sium [Mass /volu me] in Serum or Plasm a magnesium [mass/volume ] in serum or plasma 2 mg/dL low: 1.6mg/ dLhigh : 2.6mg/ dL Magne sium 2.0 1.6 - 2.6 mg/dL 02/28 2:36 AM [facility] Not Available Not Available 02/21/2025 09:50:50 02/29/20 24 02/29/2024 Magne sium [Mass /volu me] in Serum or Plasm a interpretati on and review of laboratory results Normal Not Available Not Available 02/02 09:50:50 02/29/20 24 02/29/2024 Phosp hate [Mass /volu me] in Serum or Plasm a phosphate [mass/volume ] in serum or plasma 4.1 mg/dL low: 2.9mg/ dLhigh : 5.1mg/ dL Phosp horus 4.1 2.9 - 5.1 mg/dL 02/28 2:36 AM [facility] Not Available Not Available 02/21/2025 09:50:50 02/29/20 24 02/29/2024 Phosp hate [Mass /volu me] in Serum or Plasm a interpretati on and review of laboratory results Normal Not Available Not Available 02/02 09:50:50 02/29/20 24 02/29/2024 Basic metab olic 1999 panel - Serum or Plasm a urea nitrogen [mass/volume ] in serum or plasma 16 mg/dL low: 7mg/dL high: 26mg/d L BUN 16 7 - 26 mg/dL 02/28 2:36 AM CDT [facility] IRA Not Available Not Available 02/21/2025 09:50:50 02/29/20 24 02/29/2024 Basic metab olic 1999 panel - Serum or Plasm a creatinine [mass/volume ] in serum or plasma 3.73 mg/dL low: 0.56mg /dLhig h: 0.96mg /dL high Creat inine 3.73 (H) 0.56 - 0.96 mg/dL 02/28 2:36 AM CDT [facility] IRA Not Available Not Available 02/21/2025 09:50:50 02/29/20 24 02/29/2024 Basic metab olic 1999 panel - Serum or Plasm a sodium [moles/volum e] in serum or plasma 135 mmol/ L low: 136mmo l/Lhig h: 145mmo l/L low Sodiu m 135 (L) 136 - 145 mmol/ L 02/28 2:36 AM T [facility] IRA Not Available Not Available 02/21/2025 09:50:50 02/29/20 24 02/29/2024 Basic metab olic 1999 panel - Serum or Plasm a potassium [moles/volum e] in serum or plasma 4.4 mmol/ L low: 3.5mmo l/Lhig h: 4.5mmo l/L Potas sium 4.4 3.5 - 4.5 mmol/ L 02/28 2:36 AM CDT [facility] IRA Not Available Not Available 02/21/2025 09:50:50 02/29/20 24 02/29/2024 Basic metab olic 2000 panel - Serum or Plasm a chloride [moles/volum e] in serum or plasma 104 mmol/ L low: 98mmol /Lhigh : 107mmo l/L Chlor brodie 104 98 - 107 mmol/ L 02/28 2:36 AM CDT [facility] IRA Not Available Not Available 02/21/2025 09:50:50 02/29/20 24 02/29/2024 Basic metab olic 1999 panel - Serum or Plasm a carbon dioxide, total [moles/volum e] in serum or plasma 24 mmol/ L low: 22mmol /Lhigh : 29mmol /L CO2 24 22 - 29 mmol/ L 02/28 2:36 AM CDT [facility] Not Available Not Available 02/21/2025 09:50:50 02/29/20 24 02/29/2024 Basic metab olic 1999 panel - Serum or Plasm a glucose [mass/volume ] in serum or plasma 141 mg/dL low: 70mg/d Lhigh: 115mg/ dL high Gluco se 141 (H) 70 - 115 mg/dL 02/28 2:36 AM CDT [facility] Not Available Not Available 02/21/2025 09:50:50 02/29/20 24 02/29/2024 Basic metab olic 1999 panel - Serum or Plasm a calcium [moles/volum e] in serum or plasma 8.3 mg/dL low: 8.4mg/ dLhigh : 10.2mg /dL low Calci um 8.3 (L) 8.4 - 10.2 mg/dL 02/28 2:36 AM CDT [facility] IRA Not Available Not Available 02/21/2025 09:50:50 02/29/20 24 02/29/2024 Basic metab olic 1999 panel - Serum or Plasm a anion gap 7 low: 6high: 16 Anion Gap 7 6 - 16 02/28 2:36 AM CDT [facility] IRA Not Available Not Available 02/21/2025 09:50:50 02/29/20 24 02/29/2024 Basic metab olic 2000 panel - Serum or Plasm a urea nitrogen/cre atinine [mass ratio] in serum or plasma 4 low: 7high: 23 low BUN/C reati nine Ratio 4 (L) 7 - 23 02/28 2:36 AM CDT [facility] Not Available Not Available 02/21/2025 09:50:50 02/29/20 24 02/29/2024 Basic metab olic 2000 panel - Serum or Plasm a osmolality calculated 284 text: 275 - 295 mOsm/k g Osmol rosa maria Campuzano lated 284 275 - 295 mOsm/ kg 02/28 2:36 AM CDT [facility] IRA Not Available Not Available 02/21/2025 09:50:50 02/29/20 24 02/29/2024 Basic metab olic 2000 panel - Serum or Plasm a glomerular filtration rate [volume rate/area] in serum, plasma or blood by creatinine-b ased formula (CKD-epi)/1. 73 sq M 16 text: >=90 mL/min /1.73 m2 low eGFR by CKD-E PI 16 (L) >=90 mL/mi n/1.7 3 m2 02/28 2:36 AM CDT [facility] IRA Not Available Not Available 02/21/2025 09:50:50 02/29/20 24 02/29/2024 Basic metab olic 2000 panel - Serum or Plasm a interpretati on and review of laboratory results Abnorm al Not Available Not Available 09:50:50 02/29/20 24 02/29/2024 Vanco mycin [Mass /volu me] in Serum or Plasm a vancomycin [mass/volume ] in serum or plasma 14.9 ug/mL text: therap eutic ranges not establ ished for random specim ens Vanco mycin Rando m 14.9 Thera peuti c Range s not estab lishe d for rando m speci mens ug/mL 02/28 2:24 AM CDT [facility] Not Available Not Available 02/21/2025 09:50:50 02/29/20 24 02/29/2024 Vanco mycin [Mass /volu me] in Serum or Plasm a Unknown Analyte See instit ution protoc ol. See insti tutio n dameon col. Not Available Not Available 02/21/2025 09:50:50 02/29/20 24 02/29/2024 Vanco mycin [Mass /volu me] in Serum or Plasm a interpretati on and review of laboratory results Normal Not Available Not Available 02/02 09:50:50 03/01/20 24 03/01/2024 Gluco se [Mass /volu me] in Arter ial blood glucose [mass/volume ] in capillary blood by glucometer 130 mg/dL low: 70mg/d Lhigh: 115mg/ dL high Gluco se WB/PO C 130 (H) 70 - 115 mg/dL 03/01 8:46 PM CDT [facility] Not Available Not Available 02/21/2025 09:50:52 03/01/20 24 03/01/2024 Gluco se [Mass /volu me] in Arter ial blood specimen source identified Cap Finger stick Speci men Type Cap Finge rstic k 03/01 8:46 PM CDT [facility] Not Available Not Available 02/21/2025 09:50:52 03/01/20 24 03/01/2024 Gluco se [Mass /volu me] in Arter ial blood interpretati on and review of laboratory results Abnorm al Not Available Not Available 09:50:52 03/01/20 24 03/01/2024 Gluco se [Mass /volu me] in Arter ial blood glucose [mass/volume ] in capillary blood by glucometer 122 mg/dL low: 70mg/d Lhigh: 115mg/ dL high Gluco se WB/PO C 122 (H) 70 - 115 mg/dL 03/01 5:14 PM CDT [facility] Not Available Not Available 02/21/2025 09:50:51 03/01/20 24 03/01/2024 Gluco se [Mass /volu me] in Arter ial blood specimen source identified Cap Finger stick Speci men Type Cap Finge rstic k 03/01 5:14 PM CDT [facility] [place] Not Available Not Available 02/21/2025 09:50:51 03/01/20 24 03/01/2024 Gluco se [Mass /volu me] in Arter ial blood interpretati on and review of laboratory results Abnorm al Not Available Not Available 09:50:51 03/01/20 24 03/01/2024 Gluco se [Mass /volu me] in Arter ial blood glucose [mass/volume ] in capillary blood by glucometer 150 mg/dL low: 70mg/d Lhigh: 115mg/ dL high Gluco se WB/PO C 150 (H) 70 - 115 mg/dL 03/01 12:16 PM CDT [facility] [place] Not Available Not Available 02/21/2025 09:50:51 03/01/20 24 03/01/2024 Gluco se [Mass /volu me] in Arter ial blood specimen source identified Cap Finger stick Speci men Type Cap Finge rstic k 03/01 12:16 PM CDT [facility] [place] Not Available Not Available 02/21/2025 09:50:51 03/01/20 24 03/01/2024 Gluco se [Mass /volu me] in Arter ial blood interpretati on and review of laboratory results Abnorm al Not Available Not Available 09:50:51 03/01/20 24 03/01/2024 Gluco se [Mass /volu me] in Arter ial blood glucose [mass/volume ] in capillary blood by glucometer 105 mg/dL low: 70mg/d Lhigh: 115mg/ dL Gluco se WB/PO C 105 70 - 115 mg/dL 03/01 7:54 AM CDT [facility] [place] Not Available Not Available 02/21/2025 09:50:51 03/01/20 24 03/01/2024 Gluco se [Mass /volu me] in Arter ial blood specimen source identified Cap Finger stick Speci men Type Cap Finge rstic k 03/01 7:54 AM CDT [facility] [place] Not Available Not Available 02/21/2025 09:50:51 03/01/20 24 03/01/2024 Gluco se [Mass /volu me] in Arter ial blood glucose [mass/volume ] in capillary blood by glucometer 113 mg/dL low: 70mg/d Lhigh: 115mg/ dL Gluco se WB/PO C 113 70 - 115 mg/dL 03/01 7:48 AM CDT [facility] Not Available Not Available 02/21/2025 09:50:51 03/01/20 24 03/01/2024 Gluco se [Mass /volu me] in Arter ial blood specimen source identified Cap Finger stick Speci men Type Cap Tanja rstic k 03/01 7:48 AM CDT [facility] Not Available Not Available 02/21/2025 09:50:51 03/01/20 24 03/01/2024 CBC W Auto Diffe renti al panel - Blood leukocytes [#/volume] in blood by automated count 14.1 text: 4.0 - 10.7 x10e9/ L high WBC 14.1 (H) 4.0 - 10.7 x10E9 /L 03/01 4:12 AM CDT [facility] Not Available Not Available 02/21/2025 09:50:51 03/01/20 24 03/01/2024 CBC W Auto Diffe renti al panel - Blood erythrocytes [#/volume] in blood by automated count 3.02 text: 3.90 - 5.20 x10e12 /L low RBC Count 3.02 (L) 3.90 - 5.20 x10E1 2/L 03/01 4:12 AM T [facility] IRA Not Available Not Available 02/21/2025 09:50:51 03/01/20 24 03/01/2024 CBC W Auto Diffe renti al panel - Blood hemoglobin [mass/volume ] in blood 9 g/dL low: 11.9g/ dLhigh : 15.8g/ dL low Hemog lobin 9.0 (L) 11.9 - 15.8 g/dL 03/01 4:12 AM CDT [facility] Not Available Not Available 02/21/2025 09:50:51 03/01/20 24 03/01/2024 CBC W Auto Diffe renti al panel - Blood hematocrit [volume fraction] of blood by automated count 28.7 % low: 34.8%h igh: 46.1% low Hemat ocrit 28.7 (L) 34.8 - 46.1 % 03/01 4:12 AM CDT [facility] IRA Not Available Not Available 02/21/2025 09:50:51 03/01/20 24 03/01/2024 CBC W Auto Diffe renti al panel - Blood MCV [entitic mean volume] in red blood cells by automated count 95 fL low: 80fLhi gh: 98fL MCV 95.0 80.0 - 98.0 fL 03/01 4:12 AM T [facility] IRA Not Available Not Available 02/21/2025 09:50:51 03/01/20 24 03/01/2024 CBC W Auto Diffe renti al panel - Blood MCH [entitic mass] by automated count 29.8 pg low: 26.7pg high: 33.6pg MCH 29.8 26.7 - 33.6 pg 03/01 4:12 AM [facility] IRA Not Available Not Available 02/21/2025 09:50:51 03/01/20 24 03/01/2024 CBC W Auto Diffe renti al panel - Blood MCHC [entitic mass/volume] in red blood cells by automated count 31.4 g/dL low: 31.7g/ dLhigh : 36.3g/ dL low MCHC 31.4 (L) 31.7 - 36.3 g/dL 03/01 4:12 AM [facility] IRA Not Available Not Available 02/21/2025 09:50:51 03/01/20 24 03/01/2024 CBC W Auto Diffe renti al panel - Blood erythrocyte [distwidth] in red blood cells by automated count 13.9 % low: 11.3%h igh: 14.8% RDW-C V 13.9 11.3 - 14.8 % 03/01 4:12 AM [facility] IRA Not Available Not Available 02/21/2025 09:50:51 03/01/20 24 03/01/2024 CBC W Auto Diffe renti al panel - Blood platelets [#/volume] in blood by automated count 541 text: 150 - 420 x10e9/ L high Plate let Count 541 (H) 150 - 420 x10E9 /L 03/01 4:12 AM CDT [facility] Not Available Not Available 02/21/2025 09:50:51 03/01/20 24 03/01/2024 CBC W Auto Diffe renti al panel - Blood platelet [entitic mean volume] in blood by automated count 8.8 fL low: 7.8fLh igh: 11.4fL MPV 8.8 7.8 - 11.4 fL 03/01 4:12 AM CDT [facility] Not Available Not Available 02/21/2025 09:50:51 03/01/20 24 03/01/2024 CBC W Auto Diffe renti al panel - Blood interpretati on and review of laboratory results Abnorm al Not Available Not Available 09:50:51 03/01/20 24 03/01/2024 Magne sium [Mass /volu me] in Serum or Plasm a magnesium [mass/volume ] in serum or plasma 2.1 mg/dL low: 1.6mg/ dLhigh : 2.6mg/ dL Magne sium 2.1 1.6 - 2.6 mg/dL 03/01 3:55 AM CDT [facility] Not Available Not Available 02/21/2025 09:50:51 03/01/20 24 03/01/2024 Magne sium [Mass /volu me] in Serum or Plasm a interpretati on and review of laboratory results Normal Not Available Not Available 02/02 09:50:51 03/01/20 24 03/01/2024 Phosp hate [Mass /volu me] in Serum or Plasm a phosphate [mass/volume ] in serum or plasma 6.1 mg/dL low: 2.9mg/ dLhigh : 5.1mg/ dL high Phosp horus 6.1 (H) 2.9 - 5.1 mg/dL 03/01 3:55 AM T [facility] Not Available Not Available 02/21/2025 09:50:51 03/01/20 24 03/01/2024 Phosp hate [Mass /volu me] in Serum or Plasm a interpretati on and review of laboratory results Abnorm al Not Available Not Available 09:50:51 03/01/20 24 03/01/2024 Basic metab olic 1999 panel - Serum or Plasm a urea nitrogen [mass/volume ] in serum or plasma 28 mg/dL low: 7mg/dL high: 26mg/d L high BUN 28 (H) 7 - 26 mg/dL 03/01 4:02 AM [facility] [place] Not Available Not Available 02/21/2025 09:50:51 03/01/20 24 03/01/2024 Basic metab olic 1999 panel - Serum or Plasm a creatinine [mass/volume ] in serum or plasma 5.8 mg/dL low: 0.56mg /dLhig h: 0.96mg /dL high Creat inine 5.80 (H) 0.56 - 0.96 mg/dL 03/01 4:02 AM [facility] Not Available Not Available 02/21/2025 09:50:51 03/01/20 24 03/01/2024 Basic metab olic 1999 panel - Serum or Plasm a sodium [moles/volum e] in serum or plasma 135 mmol/ L low: 136mmo l/Lhig h: 145mmo l/L low Sodiu m 135 (L) 136 - 145 mmol/ L 03/01 4:02 AM [facility] Not Available Not Available 02/21/2025 09:50:51 03/01/20 24 03/01/2024 Basic metab olic 1999 panel - Serum or Plasm a potassium [moles/volum e] in serum or plasma 4.9 mmol/ L low: 3.5mmo l/Lhig h: 4.5mmo l/L high Potas sium 4.9 (H) 3.5 - 4.5 mmol/ L 03/01 4:02 AM [facility] Not Available Not Available 02/21/2025 09:50:51 03/01/20 24 03/01/2024 Basic metab olic 2000 panel - Serum or Plasm a chloride [moles/volum e] in serum or plasma 106 mmol/ L low: 98mmol /Lhigh : 107mmo l/L Chlor brodie 106 98 - 107 mmol/ L 03/01 4:02 AM CDT [facility] [place] Not Available Not Available 02/21/2025 09:50:51 03/01/20 24 03/01/2024 Basic metab olic 1999 panel - Serum or Plasm a carbon dioxide, total [moles/volum e] in serum or plasma 21 mmol/ L low: 22mmol /Lhigh : 29mmol /L low CO2 21 (L) 22 - 29 mmol/ L 03/01 4:02 AM T [facility] [place] Not Available Not Available 02/21/2025 09:50:51 03/01/20 24 03/01/2024 Basic metab olic 1999 panel - Serum or Plasm a glucose [mass/volume ] in serum or plasma 112 mg/dL low: 70mg/d Lhigh: 115mg/ dL Gluco se 112 70 - 115 mg/dL 03/01 4:02 AM T [facility] [place] Not Available Not Available 02/21/2025 09:50:51 03/01/20 24 03/01/2024 Basic metab olic 1999 panel - Serum or Plasm a calcium [moles/volum e] in serum or plasma 8.8 mg/dL low: 8.4mg/ dLhigh : 10.2mg /dL Calci um 8.8 8.4 - 10.2 mg/dL 03/01 4:02 AM T [facility] [place] Not Available Not Available 02/21/2025 09:50:51 03/01/20 24 03/01/2024 Basic metab olic 1999 panel - Serum or Plasm a anion gap 8 low: 6high: 16 Anion Gap 8 6 - 16 03/01 4:02 AM CDT [facility] [place] Not Available Not Available 02/21/2025 09:50:51 03/01/20 24 03/01/2024 Basic metab olic 2000 panel - Serum or Plasm a urea nitrogen/cre atinine [mass ratio] in serum or plasma 5 low: 7high: 23 low BUN/C reati nine Ratio 5 (L) 7 - 23 03/01 4:02 AM CDT [facility] Not Available Not Available 02/21/2025 09:50:51 03/01/20 24 03/01/2024 Basic metab olic 2000 panel - Serum or Plasm a osmolality calculated 286 text: 275 - 295 mOsm/k g Osmol rosa maria Campuzano lated 286 275 - 295 mOsm/ kg 03/01 4:02 AM [facility] Not Available Not Available 02/21/2025 09:50:51 03/01/20 24 03/01/2024 Basic metab olic 2000 panel - Serum or Plasm a glomerular filtration rate [volume rate/area] in serum, plasma or blood by creatinine-b ased formula (CKD-epi)/1. 73 sq M 9 text: >=90 mL/min /1.73 m2 low eGFR by CKD-E PI 9 (L) >=90 mL/mi n/1.7 3 m2 03/01 4:02 AM [facility] Not Available Not Available 02/21/2025 09:50:51 03/01/20 24 03/01/2024 Basic metab olic 2000 panel - Serum or Plasm a interpretati on and review of laboratory results Abnorm al Not Available Not Available 09:50:51 03/02/20 24 03/02/2024 Gluco se [Mass /volu me] in Arter ial blood glucose [mass/volume ] in capillary blood by glucometer 86 mg/dL low: 70mg/d Lhigh: 115mg/ dL Gluco se WB/PO C 86 70 - 115 mg/dL 03/02 5:20 PM [facility] Not Available Not Available 02/21/2025 09:50:53 03/02/20 24 03/02/2024 Gluco se [Mass /volu me] in Arter ial blood specimen source identified Cap Finger stick Speci men Type Cap Finge rstic k 03/02 5:20 PM [facility] Not Available Not Available 02/21/2025 09:50:53 03/02/20 24 03/02/2024 Gluco se [Mass /volu me] in Arter ial blood glucose [mass/volume ] in capillary blood by glucometer 131 mg/dL low: 70mg/d Lhigh: 115mg/ dL high Gluco se WB/PO C 131 (H) 70 - 115 mg/dL 03/02 12:55 PM CDT [facility] [place] Not Available Not Available 02/21/2025 09:50:52 03/02/20 24 03/02/2024 Gluco se [Mass /volu me] in Arter ial blood specimen source identified Cap Finger stick Speci men Type Cap Finge rstic k 03/02 12:55 PM CDT [facility] [place] Not Available Not Available 02/21/2025 09:50:52 03/02/20 24 03/02/2024 Gluco se [Mass /volu me] in Arter ial blood interpretati on and review of laboratory results Abnorm al Not Available Not Available 09:50:52 03/02/20 24 03/02/2024 Gluco se [Mass /volu me] in Arter ial blood glucose [mass/volume ] in capillary blood by glucometer 92 mg/dL low: 70mg/d Lhigh: 115mg/ dL Gluco se WB/PO C 92 70 - 115 mg/dL 03/02 8:21 AM T [facility] [place] Not Available Not Available 02/21/2025 09:50:52 03/02/20 24 03/02/2024 Gluco se [Mass /volu me] in Arter ial blood specimen source identified Cap Finger stick Speci men Type Cap Finge rstic k 03/02 8:21 AM T [facility] [place] Not Available Not Available 02/21/2025 09:50:52 03/02/20 24 03/02/2024 CBC W Auto Diffe hanhti al panel - Blood leukocytes [#/volume] in blood by automated count 14 text: 4.0 - 10.7 x10e9/ L high WBC 14.0 (H) 4.0 - 10.7 x10E9 /L 03/02 4:07 AM CDT [facility] [place] Not Available Not Available 02/21/2025 09:50:52 04/30/03/02/2024 CBC W Auto Diffe hanhti al panel - Blood erythrocytes [#/volume] in blood by automated count 3.03 text: 3.90 - 5.20 x10e12 /L low RBC Count 3.03 (L) 3.90 - 5.20 x10E1 2/L 03/02 4:07 AM CDT [facility] Not Available Not Available 02/21/2025 09:50:52 03/02/2003/02/2024 CBC W Auto Diffe renti al panel - Blood hemoglobin [mass/volume ] in blood 8.8 g/dL low: 11.9g/ dLhigh : 15.8g/ dL low Hemog lobin 8.8 (L) 11.9 - 15.8 g/dL 03/02 4:07 AM T [facility] IRA Not Available Not Available 02/21/2025 09:50:52 03/02/2003/02/2024 CBC W Auto Diffe sage al panel - Blood hematocrit [volume fraction] of blood by automated count 29.2 % low: 34.8%h igh: 46.1% low Hemat ocrit 29.2 (L) 34.8 - 46.1 % 03/02 4:07 AM T [facility] IRA Not Available Not Available 02/21/2025 09:50:52 03/02/20 24 03/02/2024 CBC W Auto Diffe hanhti al panel - Blood MCV [entitic mean volume] in red blood cells by automated count 96.4 fL low: 80fLhi gh: 98fL MCV 96.4 80.0 - 98.0 fL 03/02 4:07 AM T [facility] IRA Not Available Not Available 02/21/2025 09:50:52 03/02/20 24 03/02/2024 CBC W Auto Diffe renti al panel - Blood MCH [entitic mass] by automated count 29 pg low: 26.7pg high: 33.6pg MCH 29.0 26.7 - 33.6 pg 03/02 4:07 AM T [facility] IRA Not Available Not Available 02/21/2025 09:50:52 03/02/20 24 03/02/2024 CBC W Auto Diffe renti al panel - Blood MCHC [entitic mass/volume] in red blood cells by automated count 30.1 g/dL low: 31.7g/ dLhigh : 36.3g/ dL low MCHC 30.1 (L) 31.7 - 36.3 g/dL 03/02 4:07 AM T [facility] IRA Not Available Not Available 02/21/2025 09:50:52 03/02/20 24 03/02/2024 CBC W Auto Diffe renti al panel - Blood erythrocyte [distwidth] in red blood cells by automated count 14.3 % low: 11.3%h igh: 14.8% RDW-C V 14.3 11.3 - 14.8 % 03/02 4:07 AM [facility] Not Available Not Available 02/21/2025 09:50:52 03/02/2003/02/2024 CBC W Auto Diffe renti al panel - Blood platelets [#/volume] in blood by automated count 595 text: 150 - 420 x10e9/ L high Plate let Count 595 (H) 150 - 420 x10E9 /L 03/02 4:07 AM [facility] IRA Not Available Not Available 02/21/2025 09:50:52 03/02/20 24 03/02/2024 CBC W Auto Diffe renti al panel - Blood platelet [entitic mean volume] in blood by automated count 8.9 fL low: 7.8fLh igh: 11.4fL MPV 8.9 7.8 - 11.4 fL 03/02 4:07 AM T [facility] IRA Not Available Not Available 02/21/2025 09:50:52 03/02/20 24 03/02/2024 CBC W Auto Diffe renti al panel - Blood neutrophils/ leukocytes in blood by automated count 61.4 % low: 41%hig h: 74% Neutr ophil % 61.4 41.0 - 74.0 % 03/02 4:07 AM T [facility] IRA Not Available Not Available 02/21/2025 09:50:52 03/02/20 24 03/02/2024 CBC W Auto Diffe renti al panel - Blood lymphocytes/ leukocytes in blood by automated count 19.6 % low: 17%hig h: 47% Lymph ocyte % 19.6 17.0 - 47.0 % 03/02 4:07 AM CDT [facility] IRA Not Available Not Available 02/21/2025 09:50:52 03/02/20 24 03/02/2024 CBC W Auto Diffe renti al panel - Blood monocytes/le ukocytes in blood by automated count 8.5 % low: 3%high : 11% Monoc yte % 8.5 3.0 - 11.0 % 03/02 4:07 AM CDT [facility] IRA Not Available Not Available 02/21/2025 09:50:52 03/02/20 24 03/02/2024 CBC W Auto Diffe renti al panel - Blood eosinophils/ leukocytes in blood by automated count 9.6 % low: 0%high : 7% high Eosin ophil % 9.6 (H) 0.0 - 7.0 % 03/02 4:07 AM CDT [facility] IRA Not Available Not Available 02/21/2025 09:50:52 03/02/20 24 03/02/2024 CBC W Auto Diffe renti al panel - Blood basophils/le ukocytes in blood by automated count 0.4 % low: 0%high : 1.6% Basop hil % 0.4 0.0 - 1.6 % 03/02 4:07 AM CDT [facility] IRA Not Available Not Available 02/21/2025 09:50:52 03/02/20 24 03/02/2024 CBC W Auto Diffe renti al panel - Blood immature granulocytes /leukocytes in blood by automated count 0.5 % low: 0%high : 1% Immat ure Granu locyt es % 0.5 0.0 - 1.0 % 03/02 4:07 AM CDT [facility] IRA Not Available Not Available 02/21/2025 09:50:52 03/02/20 24 03/02/2024 CBC W Auto Diffe renti al panel - Blood neutrophils [#/volume] in blood by automated count 8.63 text: 1.60 - 7.50 x10e9/ L high Neutr ophil Absol [place] 8.63 (H) 1.60 - 7.50 x10E9 /L 03/02 4:07 AM CDT [facility] Not Available Not Available 02/21/2025 09:50:52 03/02/20 24 03/02/2024 CBC W Auto Diffe renti al panel - Blood lymphocytes [#/volume] in blood by automated count 2.75 text: 1.00 - 4.40 x10e9/ L Lymph ocyte Absol [place] 2.75 1.00 - 4.40 x10E9 /L 03/02 4:07 AM T [facility] Not Available Not Available 02/21/2025 09:50:52 03/02/20 24 03/02/2024 CBC W Auto Diffe renti al panel - Blood monocytes [#/volume] in blood by automated count 1.19 text: 0.15 - 1.00 x10e9/ L high Monoc yte Absol [place] 1.19 (H) 0.15 - 1.00 x10E9 /L 03/02 4:07 AM T [facility] Not Available Not Available 02/21/2025 09:50:52 03/02/20 24 03/02/2024 CBC W Auto Diffe renti al panel - Blood eosinophils [#/volume] in blood 1.35 text: 0.00 - 0.60 x10e9/ L high Eosin ophil Absol [place] 1.35 (H) 0.00 - 0.60 x10E9 /L 03/02 4:07 AM T [facility] Not Available Not Available 02/21/2025 09:50:52 03/02/20 24 03/02/2024 CBC W Auto Diffe renti al panel - Blood basophils [#/volume] in blood by automated count 0.05 text: 0.00 - 0.13 x10e9/ L Basop hil Absol [place] 0.05 0.00 - 0.13 x10E9 /L 03/02 4:07 AM [facility] Not Available Not Available 02/21/2025 09:50:52 03/02/20 24 03/02/2024 CBC W Auto Diffe renti al panel - Blood interpretati on and review of laboratory results Abnorm al Not Available Not Available 09:50:52 03/02/20 24 03/02/2024 Magne sium [Mass /volu me] in Serum or Plasm a magnesium [mass/volume ] in serum or plasma 2.4 mg/dL low: 1.6mg/ dLhigh : 2.6mg/ dL Magne sium 2.4 1.6 - 2.6 mg/dL 03/02 4:31 AM [facility] Not Available Not Available 02/21/2025 09:50:52 03/02/20 24 03/02/2024 Magne sium [Mass /volu me] in Serum or Plasm a interpretati on and review of laboratory results Normal Not Available Not Available 02/02 09:50:52 03/02/20 24 03/02/2024 Phosp hate [Mass /volu me] in Serum or Plasm a phosphate [mass/volume ] in serum or plasma 7.3 mg/dL low: 2.9mg/ dLhigh : 5.1mg/ dL high Phosp horus 7.3 (H) 2.9 - 5.1 mg/dL 03/02 4:31 AM [facility] Not Available Not Available 02/21/2025 09:50:52 03/02/20 24 03/02/2024 Phosp hate [Mass /volu me] in Serum or Plasm a interpretati on and review of laboratory results Abnorm al Not Available Not Available 09:50:52 03/02/20 24 03/02/2024 Basic metab olic 2000 panel - Serum or Plasm a urea nitrogen [mass/volume ] in serum or plasma 39 mg/dL low: 7mg/dL high: 26mg/d L high BUN 39 (H) 7 - 26 mg/dL 03/02 4:31 AM CDT [facility] IRA Not Available Not Available 02/21/2025 09:50:52 03/02/20 24 03/02/2024 Basic metab olic 1999 panel - Serum or Plasm a creatinine [mass/volume ] in serum or plasma 7.43 mg/dL low: 0.56mg /dLhig h: 0.96mg /dL high Creat inine 7.43 (H) 0.56 - 0.96 mg/dL 03/02 4:31 AM T [facility] IRA Not Available Not Available 02/21/2025 09:50:52 03/02/20 24 03/02/2024 Basic metab olic 1999 panel - Serum or Plasm a sodium [moles/volum e] in serum or plasma 137 mmol/ L low: 136mmo l/Lhig h: 145mmo l/L Sodiu m 137 136 - 145 mmol/ L 03/02 4:31 AM [facility] IRA Not Available Not Available 02/21/2025 09:50:52 03/02/20 24 03/02/2024 Basic metab olic 1999 panel - Serum or Plasm a potassium [moles/volum e] in serum or plasma 5.5 mmol/ L low: 3.5mmo l/Lhig h: 4.5mmo l/L high Potas sium 5.5 (H) 3.5 - 4.5 mmol/ L 03/02 4:31 AM [facility] IRA Not Available Not Available 02/21/2025 09:50:52 03/02/20 24 03/02/2024 Basic metab olic 1999 panel - Serum or Plasm a chloride [moles/volum e] in serum or plasma 102 mmol/ L low: 98mmol /Lhigh : 107mmo l/L Chlor brodie 102 98 - 107 mmol/ L 03/02 4:31 AM T [facility] IRA Not Available Not Available 02/21/2025 09:50:52 03/02/20 24 03/02/2024 Basic metab olic 2000 panel - Serum or Plasm a carbon dioxide, total [moles/volum e] in serum or plasma 25 mmol/ L low: 22mmol /Lhigh : 29mmol /L CO2 25 22 - 29 mmol/ L 03/02 4:31 AM CDT [facility] IRA Not Available Not Available 02/21/2025 09:50:52 03/02/20 24 03/02/2024 Basic metab olic 2000 panel - Serum or Plasm a glucose [mass/volume ] in serum or plasma 92 mg/dL low: 70mg/d Lhigh: 115mg/ dL Gluco se 92 70 - 115 mg/dL 03/02 4:31 AM CDT [facility] IRA Not Available Not Available 02/21/2025 09:50:52 03/02/20 24 03/02/2024 Basic metab olic 2000 panel - Serum or Plasm a calcium [moles/volum e] in serum or plasma 8.8 mg/dL low: 8.4mg/ dLhigh : 10.2mg /dL Calci um 8.8 8.4 - 10.2 mg/dL 03/02 4:31 AM T [facility] Not Available Not Available 02/21/2025 09:50:52 03/02/20 24 03/02/2024 Basic metab olic 2000 panel - Serum or Plasm a anion gap 10 low: 6high: 16 Anion Gap 10 6 - 16 03/02 4:31 AM T [facility] Not Available Not Available 02/21/2025 09:50:52 03/02/20 24 03/02/2024 Basic metab olic 2000 panel - Serum or Plasm a urea nitrogen/cre atinine [mass ratio] in serum or plasma 5 low: 7high: 23 low BUN/C reati nine Ratio 5 (L) 7 - 23 03/02 4:31 AM CDT [facility] Not Available Not Available 02/21/2025 09:50:52 03/02/20 24 03/02/2024 Basic metab olic 2000 panel - Serum or Plasm a osmolality calculated 293 text: 275 - 295 mOsm/k g Osmol ality Calcu lated 293 275 - 295 mOsm/ kg 03/02 4:31 AM CDT [facility] Not Available Not Available 02/21/2025 09:50:52 03/02/20 24 03/02/2024 Basic metab olic 2000 panel - Serum or Plasm a glomerular filtration rate [volume rate/area] in serum, plasma or blood by creatinine-b ased formula (CKD-epi)/1. 73 sq M 7 text: >=90 mL/min /1.73 m2 low eGFR by CKD-E PI 7 (L) >=90 mL/mi n/1.7 3 m2 03/02 4:31 AM CDT [facility] Not Available Not Available 02/21/2025 09:50:52 03/02/20 24 03/02/2024 Basic metab olic 2000 panel - Serum or Plasm a interpretati on and review of laboratory results Abnorm al Not Available Not Available 09:50:52 03/02/20 24 03/02/2024 Vanco mycin [Mass /volu me] in Serum or Plasm a vancomycin [mass/volume ] in serum or plasma 29 ug/mL text: therap eutic ranges not establ ished for random specim ens Vanco mycin Rando m 29.0 Thera peuti c Range s not estab lishe d for rando m speci mens ug/mL 03/02 4:22 AM T [facility] [facility] Not Available Not Available 02/21/2025 09:50:52 03/02/20 24 03/02/2024 Vanco mycin [Mass /volu me] in Serum or Plasm a Unknown Analyte See instit ution protoc ol. See insti tutio n dameon col. Not Available Not Available 02/21/2025 09:50:52 03/02/20 24 03/02/2024 Vanco mycin [Mass /volu me] in Serum or Plasm a interpretati on and review of laboratory results Normal Not Available Not Available 02/02 09:50:52 08/23/20 24 08/24/2024 CBC W Auto Diffe renti al panel - Blood white blood cell count 12.5 text: 3.8 - 10.8 thousa nd/uL high White Blood Cell Count 12.5 (H) 3.8 - 10.8 Thous and/u L [facility] Not Available Not Available 01/19/2025 16:17:53 08/23/2008/24/2024 CBC W Auto Diffe renti al panel - Blood RBC 3.48 text: 3.80 - 5.10 millio n/uL low RBC 3.48 (L) 3.80 - 5.10 Etta on/uL [facility] Not Available Not Available 01/19/2025 16:17:53 08/23/2008/24/2024 CBC W Auto Diffe renti al panel - Blood hemoglobin 10.1 g/dL low: 11.7g/ dLhigh : 15.5g/ dL low Hemog lobin 10.1 (L) 11.7 - 15.5 g/dL [facility] Not Available Not Available 01/19/2025 16:17:53 08/23/2008/24/2024 CBC W Auto Diffe renti al panel - Blood hematocrit 33.3 % low: 35%hig h: 45% low Hemat ocrit 33.3 (L) 35.0 - 45.0 % [facility] Not Available Not Available 01/19/2025 16:17:53 08/23/2008/24/2024 CBC W Auto Diffe renti al panel - Blood MCV 95.7 fL low: 80fLhi gh: 100fL MCV 95.7 80.0 - 100.0 fL [facility] Not Available Not Available 01/19/2025 16:17:53 08/23/2008/24/2024 CBC W Auto Diffe renti al panel - Blood MCH 29 pg low: 27pghi gh: 33pg MCH 29.0 27.0 - 33.0 pg [facility] Not Available Not Available 01/19/2025 16:17:53 08/23/2008/24/2024 CBC W Auto Diffe renti al panel - Blood MCHC 30.3 g/dL low: 32g/dL high: 36g/dL low MCHC 30.3 (L) 32.0 - 36.0 g/dL [facility] Not Available Not Available 01/19/2025 16:17:53 08/23/20 24 08/24/2024 CBC W Auto Diffe renti al panel - Blood RDW 13 % low: 11%hig h: 15% RDW 13.0 11.0 - 15.0 % [facility] Not Available Not Available 01/19/2025 16:17:53 08/23/20 24 08/24/2024 CBC W Auto Diffe renti al panel - Blood platelet count 451 text: 140 - 400 thousa nd/uL high Plate let Count 451 (H) 140 - 400 Thous and/u L [facility] Not Available Not Available 01/19/2025 16:17:53 08/23/20 24 08/24/2024 CBC W Auto Diffe renti al panel - Blood MPV 9.6 fL low: 7.5fLh igh: 12.5fL MPV 9.6 7.5 - 12.5 fL [facility] Not Available Not Available 01/19/2025 16:17:53 08/23/20 24 08/24/2024 CBC W Auto Diffe renti al panel - Blood neutrophil absolute 8463 text: 1500 - 7800 cells/ uL high Neutr ophil Absol [place] 8463 (H) 1500 - 7800 cells /uL [facility] Not Available Not Available 01/19/2025 16:17:53 08/23/20 24 08/24/2024 CBC W Auto Diffe renti al panel - Blood lymphocytes absolute 2475 text: 850 - 3900 cells/ uL Lymph ocyte s Absol [place] 2475 850 - 3900 cells /uL [facility] Not Available Not Available 01/19/2025 16:17:53 08/23/20 24 08/24/2024 CBC W Auto Diffe renti al panel - Blood absolute monocytes 550 text: 200 - 950 cells/ uL Absol [place] Monoc ytes 550 200 - 950 cells /uL [facility] Not Available Not Available 01/19/2025 16:17:53 08/23/20 24 08/24/2024 CBC W Auto Diffe renti al panel - Blood eosinophils absolute 938 text: 15 - 500 cells/ uL high Eosin ophil s Absol [place] 938 (H) 15 - 500 cells /uL [facility] Not Available Not Available 01/19/2025 16:17:53 08/23/20 24 08/24/2024 CBC W Auto Diffe renti al panel - Blood basophils absolute 75 text: 0 - 200 cells/ uL Basop hils Absol [place] 75 0 - 200 cells /uL [facility] Not Available Not Available 01/19/2025 16:17:53 08/23/20 24 08/24/2024 CBC W Auto Diffe renti al panel - Blood granulocytes % 67.7 % Granu locyt es % 67.7 % [facility] Not Available Not Available 01/19/2025 16:17:53 08/23/2008/24/2024 CBC W Auto Diffe renti al panel - Blood lymphocytes % 19.8 % Lymph ocyte s % 19.8 % [facility] Not Available Not Available 01/19/2025 16:17:53 08/23/2008/24/2024 CBC W Auto Diffe renti al panel - Blood monocytes % 4.4 % Monoc ytes % 4.4 % [facility] Not Available Not Available 01/19/2025 16:17:53 08/23/2008/24/2024 CBC W Auto Diffe renti al panel - Blood eosinophils % 7.5 % Eosin ophil s % 7.5 % [facility] Not Available Not Available 01/19/2025 16:17:53 08/23/2008/24/2024 CBC W Auto Diffe renti al panel - Blood basophils % 0.6 % Basop hils % 0.6 % [facility] Not Available Not Available 01/19/2025 16:17:53 08/23/20 24 08/24/2024 CBC W Auto Diffe renti al panel - Blood interpretati on and review of laboratory results Abnorm al Not Available Not Available 16:17:53 08/23/20 24 08/24/2024 C react talia prote in [Mass /volu me] in Serum or Plasm a C-reactive protein 18.7 mg/L high: 8mg/L high C-Parvin ctive Prote in 18.7 (H) <8.0 mg/L [facility] Not Available Not Available 01/19/2025 16:17:53 08/23/20 24 08/24/2024 C react talai prote in [Mass /volu me] in Serum or Plasm a interpretati on and review of laboratory results Abnorm al Not Available Not Available 16:17:53 08/23/20 24 08/24/2024 Eryth rocyt e sedim entat ion rate by Weste rgren metho d erythrocyte sedimentatio n rate westergren 94 mm/h text: < or = 20 high Eryth rocyt e Sedim entat ion Rate Weste rgren 94 (H) < OR = 20 mm/h [facility] Not Available Not Available 01/19/2025 16:17:53 08/23/2008/24/2024 Eryth rocyt e sedim entat ion rate by Favio lynn metho d interpretati on and review of laboratory results Abnorm al Not Available Not Available 16:17:53 08/28/2008/29/2024 Hemog lobin A1c/H emogl obin. total in Blood hemoglobin A1C/hemoglob in.total in blood 7.4 % high: 5.6% high Hemog lobin A1c 7.4 (H) <=5.6 % 08/29 8:36 AM CDT [facility] Not Available Not Available 12/16/2024 13:27:04 08/28/20 24 08/29/2024 Hemog lobin A1c/H emogl obin. total in Blood glucose mean value [mass/volume ] in blood estimated from glycated hemoglobin 166 mg/dL Estim dana Stephens ge Gluco se 166 mg/dL 08/29 8:36 AM CDT [facility] Not Available Not Available 12/16/2024 13:27:04 08/28/2008/29/2024 Hemog lobin A1c/H emogl obin. total in Blood interpretati on and review of laboratory results Abnorm al Not Available Not Available 13:27:04 09/08/20 24 09/10/2024 ALBUM IN/CR EAT RATIO , RANDO M UR creatinine, urine 48.8 mg/dL notest ab. Not Available [facility] ([facility]) [address] [facility], [place], [address], 09/10/2024 12:29:42 09/08/2009/10/2024 ALBUM IN/CR EAT RATIO , RANDO M UR albumin, urine 4317.3 ug/mL notest ab. Resul ts confi rmed on dilut ion. Not Available [facility] ([facility]) [address] [facility], [place], [address], 09/10/2024 12:29:42 09/08/20 24 09/10/2024 ALBUM IN/CR EAT RATIO , PAM Bernabe UR alb/creat ratio 8847 mg/g_ creat 0-29 above high normal Mally l: 0 - 29 Moder ately incre ased: 30 - 300 Sever lou incre ased: >300 Not Available [facility] ([facility]) [address] [facility], [place], [address], 09/10/2024 12:29:42 09/08/20 24 09/10/2024 PREGN AMY TEST, URINE test, urine Negati ve negati ve Not Available [facility] ([facility]) [address] [facility], [place], [address], 09/10/2024 12:29:43 09/08/20 24 09/08/2024 pregn amy test, urine HCG negati ve Not Available In-Office Order Internal Use Only DO Not Attach Compendium DO Not Attach Compendium, Do Not Delete/merge, [id number] 09/08/2024 17:28:22 11/22/19 25 11/22/2024 C react talia prote in [Mass /volu me] in Serum or Plasm a C reactive protein [mass/volume ] in serum or plasma 1.4 mg/dL high: 0.5mg/ dL high C-[place] ctive Prote in 1.4 (H) <=0.5 mg/dL 11/22 4:22 PM [employer] [facility] Not Available Not Available 12/16/2024 13:27:04 11/22/19 25 11/22/2024 C react talia prote in [Mass /volu me] in Serum or Plasm a interpretati on and review of laboratory results Abnorm al Not Available Not Available 13:27:04 11/22/19 25 11/22/2024 Eryth rocyt e sedim entat ion rate by Favio lynn metho d erythrocyte sedimentatio n rate by westmaciejren method 46 text: 0 - 20 mm/HR high Eryth rocyt e Sedim entat ion Rate Favio lynn 46 (H) 0 - 20 MM/HR 11/22 4:12 PM [employer] [facility] Not Available Not Available 12/16/2024 13:27:04 11/22/19 25 11/22/2024 Eryth rocyt e sedim entat ion rate by Favio shelley interpretati on and review of laboratory results Abnorm al Not Available Not Available 13:27:04 11/22/19 25 11/22/2024 CBC W Auto Diffe renti al panel - Blood leukocytes [#/volume] in blood by automated count 13.6 text: 4.0 - 10.7 x10e9/ L high WBC 13.6 (H) 4.0 - 10.7 x10E9 /L 11/22 4:03 PM [employer] [facility] Not Available Not Available 12/16/2024 13:27:03 11/22/19 25 11/22/2024 CBC W Auto Diffe renti al panel - Blood erythrocytes [#/volume] in blood by automated count 4.45 text: 3.90 - 5.20 x10e12 /L RBC Count 4.45 3.90 - 5.20 x10E1 2/L 11/22 4:03 PM [employer] [facility] Not Available Not Available 12/16/2024 13:27:03 11/22/19 25 11/22/2024 CBC W Auto Diffe renti al panel - Blood hemoglobin [mass/volume ] in blood 13.1 g/dL low: 11.9g/ dLhigh : 15.8g/ dL Hemog lobin 13.1 11.9 - 15.8 g/dL 11/22 4:03 PM [employer] [facility] Not Available Not Available 12/16/2024 13:27:03 11/22/19 25 11/22/2024 CBC W Auto Diffe renti al panel - Blood hematocrit [volume fraction] of blood by automated count 41.5 % low: 34.8%h igh: 46.1% Hemat ocrit 41.5 34.8 - 46.1 % 11/22 4:03 PM [employer] [facility] Not Available Not Available 12/16/2024 13:27:03 11/22/19 25 11/22/2024 CBC W Auto Diffe renti al panel - Blood MCV [entitic volume] by automated count 93.3 fL low: 80fLhi gh: 98fL MCV 93.3 80.0 - 98.0 fL 11/22 4:03 PM [employer] [facility] Not Available Not Available 12/16/2024 13:27:03 11/22/19 25 11/22/2024 CBC W Auto Diffe renti al panel - Blood MCH [entitic mass] by automated count 29.4 pg low: 26.7pg high: 33.6pg MCH 29.4 26.7 - 33.6 pg 11/22 4:03 PM [employer] [facility] Not Available Not Available 12/16/2024 13:27:03 11/22/19 25 11/22/2024 CBC W Auto Diffe renti al panel - Blood MCHC [mass/volume ] by automated count 31.6 g/dL low: 31.7g/ dLhigh : 36.3g/ dL low MCHC 31.6 (L) 31.7 - 36.3 g/dL 11/22 4:03 PM [employer] [facility] Not Available Not Available 12/16/2024 13:27:03 11/22/19 25 11/22/2024 CBC W Auto Diffe renti al panel - Blood erythrocyte distribution width [ratio] by automated count 13.2 % low: 11.3%h igh: 14.8% RDW-C V 13.2 11.3 - 14.8 % 11/22 4:03 PM [employer] [facility] Not Available Not Available 12/16/2024 13:27:03 11/22/19 25 11/22/2024 CBC W Auto Diffe renti al panel - Blood platelets [#/volume] in blood by automated count 376 text: 150 - 420 x10e9/ L Plate let Count 376 150 - 420 x10E9 /L 11/22 4:03 PM [employer] [facility] Not Available Not Available 12/16/2024 13:27:03 11/22/19 11/22/2024 CBC W Auto Diffe renti al panel - Blood platelet mean volume [entitic volume] in blood by automated count 10.2 fL low: 7.8fLh igh: 11.4fL MPV 10.2 7.8 - 11.4 fL 11/22 4:03 PM [employer] [facility] Not Available Not Available 12/16/2024 13:27:03 11/22/19 25 11/22/2024 CBC W Auto Diffe renti al panel - Blood neutrophils/ 100 leukocytes in blood by automated count 68.3 % low: 41%hig h: 74% Neutr ophil % 68.3 41.0 - 74.0 % 11/22 4:03 PM [employer] [facility] Not Available Not Available 12/16/2024 13:27:03 11/22/19 25 11/22/2024 CBC W Auto Diffe renti al panel - Blood lymphocytes/ 100 leukocytes in blood by automated count 21.9 % low: 17%hig h: 47% Lymph ocyte % 21.9 17.0 - 47.0 % 11/22 4:03 PM [employer] [facility] Not Available Not Available 12/16/2024 13:27:03 11/22/19 25 11/22/2024 CBC W Auto Diffe renti al panel - Blood monocytes/10 0 leukocytes in blood by automated count 5.5 % low: 3%high : 11% Monoc yte % 5.5 3.0 - 11.0 % 11/22 4:03 PM [employer] [facility] Not Available Not Available 12/16/2024 13:27:03 11/22/19 25 11/22/2024 CBC W Auto Diffe renti al panel - Blood eosinophils/ 100 leukocytes in blood by automated count 3.2 % low: 0%high : 7% Eosin ophil % 3.2 0.0 - 7.0 % 11/22 4:03 PM [employer] [facility] Not Available Not Available 12/16/2024 13:27:03 11/22/19 25 11/22/2024 CBC W Auto Diffe renti al panel - Blood basophils/10 0 leukocytes in blood by automated count 0.4 % low: 0%high : 1.6% Basop hil % 0.4 0.0 - 1.6 % 11/22 4:03 PM [employer] [facility] Not Available Not Available 12/16/2024 13:27:03 11/22/19 25 11/22/2024 CBC W Auto Diffe renti al panel - Blood immature granulocytes /100 leukocytes in blood by automated count 0.7 % low: 0%high : 1% Immat ure Granu locyt es % 0.7 0.0 - 1.0 % 11/22 4:03 PM [facility] Not Available Not Available 12/16/2024 13:27:03 11/22/19 25 11/22/2024 CBC W Auto Diffe renti al panel - Blood neutrophils [#/volume] in blood by automated count 9.32 text: 1.60 - 7.50 x10e9/ L high Neutr ophil Absol [place] 9.32 (H) 1.60 - 7.50 x10E9 /L 11/22 4:03 PM [facility] Not Available Not Available 12/16/2024 13:27:03 11/22/19 25 11/22/2024 CBC W Auto Diffe renti al panel - Blood lymphocytes [#/volume] in blood by automated count 2.99 text: 1.00 - 4.40 x10e9/ L Lymph ocyte Absol [place] 2.99 1.00 - 4.40 x10E9 /L 11/22 4:03 PM [facility] Not Available Not Available 12/16/2024 13:27:03 11/22/19 25 11/22/2024 CBC W Auto Diffe renti al panel - Blood monocytes [#/volume] in blood by automated count 0.75 text: 0.15 - 1.00 x10e9/ L Monoc yte Absol [place] 0.75 0.15 - 1.00 x10E9 /L 11/22 4:03 PM [employer] [facility] Not Available Not Available 12/16/2024 13:27:03 11/22/19 25 11/22/2024 CBC W Auto Diffe renti al panel - Blood eosinophils [#/volume] in blood 0.43 text: 0.00 - 0.60 x10e9/ L Eosin ophil Absol [place] 0.43 0.00 - 0.60 x10E9 /L 11/22 4:03 PM [employer] [facility] Not Available Not Available 12/16/2024 13:27:03 11/22/19 25 11/22/2024 CBC W Auto Diffe renti al panel - Blood basophils [#/volume] in blood by automated count 0.05 text: 0.00 - 0.13 x10e9/ L Basop hil Absol [place] 0.05 0.00 - 0.13 x10E9 /L 11/22 4:03 PM [employer] [facility] Not Available Not Available 12/16/2024 13:27:03 11/22/19 [...] 7 - 26 mg/dL 11/22 4:22 PM [facility] Not Available Not Available 12/16/2024 13:27:03 11/22/19 25 11/22/2024 Compr ehens talia metab olic 1999 panel - Serum or Plasm a creatinine [mass/volume ] in serum or plasma 3.71 mg/dL low: 0.56mg /dLhig h: 0.96mg /dL high Creat inine 3.71 (H) 0.56 - 0.96 mg/dL 11/22 4:22 PM [employer] [facility] Not Available Not Available 12/16/2024 13:27:03 11/22/19 25 11/22/2024 Compr ehens talia metab olic 2000 panel - Serum or Plasm a sodium [moles/volum e] in serum or plasma 134 mmol/ L low: 136mmo l/Lhig h: 145mmo l/L low Sodiu m 134 (L) 136 - 145 mmol/ L 11/22 4:22 PM [facility] Not Available Not Available 12/16/2024 13:27:03 11/22/19 25 11/22/2024 Compr ehens talia metab olic 2000 panel - Serum or Plasm a potassium [moles/volum e] in serum or plasma 4.6 mmol/ L low: 3.5mmo l/Lhig h: 4.5mmo l/L high Potas sium 4.6 (H) 3.5 - 4.5 mmol/ L 11/22 4:22 PM [employer] [facility] Not Available Not Available 12/16/2024 13:27:03 11/22/19 25 11/22/2024 Compr ehens talia metab olic 2000 panel - Serum or Plasm a chloride [moles/volum e] in serum or plasma 103 mmol/ L low: 98mmol /Lhigh : 107mmo l/L Chlor brodie 103 98 - 107 mmol/ L 11/22 4:22 PM [facility] Not Available Not Available 12/16/2024 13:27:03 11/22/19 25 11/22/2024 Compr ehens talia metab olic 2000 panel - Serum or Plasm a carbon dioxide, total [moles/volum e] in serum or plasma 21 mmol/ L low: 22mmol /Lhigh : 29mmol /L low CO2 21 (L) 22 - 29 mmol/ L 11/22 4:22 PM [facility] Not Available Not Available 12/16/2024 13:27:03 11/22/19 25 11/22/2024 Compr ehens talia metab olic 2000 panel - Serum or Plasm a glucose [mass/volume ] in serum or plasma 295 mg/dL low: 70mg/d Lhigh: 99mg/d L high Gluco se 295 (H) 70 - 99 mg/dL 11/22 4:22 PM [facility] Not Available Not Available 12/16/2024 13:27:03 11/22/19 25 11/22/2024 Compr ehens talia metab olic 1999 panel - Serum or Plasm a calcium [moles/volum e] in serum or plasma 8.7 mg/dL low: 8.4mg/ dLhigh : 10.2mg /dL Calci um 8.7 8.4 - 10.2 mg/dL 11/22 4:22 PM [employer] [facility] Not Available Not Available 12/16/2024 13:27:03 11/22/19 25 11/22/2024 Compr ehens talia metab olic 2000 panel - Serum or Plasm a protein [mass/volume ] in serum or plasma 7.9 g/dL low: 6g/dLh igh: 8.3g/d L Prote in Total 7.9 6.0 - 8.3 g/dL 11/22 4:22 PM [employer] [facility] Not Available Not Available 12/16/2024 13:27:03 11/22/19 25 11/22/2024 Compr ehens talia metab olic 2000 panel - Serum or Plasm a albumin [mass/volume ] in serum or plasma by bromocresol green (bcg) dye binding method 3.1 g/dL low: 3.4g/d Lhigh: 5g/dL low Album in 3.1 (L) 3.4 - 5.0 g/dL 11/22 4:22 PM [employer] [facility] Not Available Not Available 12/16/2024 13:27:03 11/22/19 25 11/22/2024 Compr ehens talia metab olic 2000 panel - Serum or Plasm a bilirubin.to ira [mass/volume ] in serum or plasma 0.2 mg/dL low: 0.2mg/ dLhigh : 1.2mg/ dL Bilir ubin Total 0.2 0.2 - 1.2 mg/dL 11/22 4:22 PM [employer] [facility] Not Available Not Available 12/16/2024 13:27:03 11/22/19 25 11/22/2024 Compr ehens talia metab olic 2000 panel - Serum or Plasm a alkaline phosphatase [enzymatic activity/vol ume] in serum or plasma 263 U/L low: 40U/Lh igh: 150U/L high Alkal ine Phosp hatas e 263 (H) 40 - 150 U/L 11/22 4:22 PM [employer] [facility] Not Available Not Available 12/16/2024 13:27:03 11/22/19 25 11/22/2024 Compr ehens talia metab olic 1999 panel - Serum or Plasm a alanine aminotransfe rase [enzymatic activity/vol ume] in serum or plasma by no addition of P-5'-P 15 U/L low: 5U/Lhi gh: 55U/L ALT 15 5 - 55 U/L 11/22 4:22 PM [employer] [facility] Not Available Not Available 12/16/2024 13:27:03 11/22/19 25 11/22/2024 Compr ehens talia metab olic 1999 panel - Serum or Plasm a aspartate aminotransfe rase [enzymatic activity/vol ume] in serum or plasma 12 U/L low: 5U/Lhi gh: 34U/L AST 12 5 - 34 U/L 11/22 4:22 PM [employer] [facility] Not Available Not Available 12/16/2024 13:27:03 11/22/19 25 11/22/2024 Compr ehens talia metab olic 1999 panel - Serum or Plasm a anion gap 10 low: 6high: 16 Anion Gap 10 6 - 16 11/22 4:22 PM [employer] [facility] Not Available Not Available 12/16/2024 13:27:03 11/22/19 25 11/22/2024 Compr ehens talia metab olic 1999 panel - Serum or Plasm a urea nitrogen/cre atinine [mass ratio] in serum or plasma 6 low: 7high: 23 low BUN/C reati nine Ratio 6 (L) 7 - 23 11/22 4:22 PM [employer] [facility] Not Available Not Available 12/16/2024 13:27:03 11/22/19 25 11/22/2024 Compr ehens talia metab olic 2000 panel - Serum or Plasm a osmolality calculated 293 text: 275 - 295 mOsm/k g Osmol ality Calcu lated 293 275 - 295 mOsm/ kg 11/22 4:22 PM [employer] [facility] Not Available Not Available 12/16/2024 13:27:03 11/22/19 25 11/22/2024 Compr ehens talia metab olic 2000 panel - Serum or Plasm a albumin/glob ulin ratio 0.6 low: 1.1hig h: 2.3 low Album in/Gl obuli n Ratio 0.6 (L) 1.1 - 2.3 11/22 4:22 PM [employer] [facility] Not Available Not Available 12/16/2024 13:27:03 11/22/19 25 11/22/2024 Compr ehens talia metab olic 2000 panel - Serum or Plasm a glomerular filtration rate/1.73 sq M.predicted [volume rate/area] in serum, plasma or blood by creatinine-b ased formula (CKD-epi 2020) 16 text: >=90 mL/min /1.73 m2 low eGFR by CKD-E PI 16 (L) >=90 mL/mi n/1.7 3 m2 11/22 4:22 PM [employer] [facility] Not Available Not Available 12/16/2024 13:27:03 11/22/19 25 11/22/2024 Compr ehens talia metab olic 2000 panel - Serum or Plasm a interpretati on and review of laboratory results Abnorm al Not Available Not Available 13:27:03 12/06/19 25 12/09/2024 NO TEST INDIC ATED . Commen t A serum separ ator tube was recei [place] with no test indic ated Not Available [facility] ([facility]) [address] [facility], [place], [address], 12/09/2024 10:12:37 12/06/19 25 12/09/2024 NO TEST INDIC ATED dear doctor, Commgareth t The requi sitio n we recei [place] for the above [...] Pleas e provi de reque sted infor matio n and fax to [phone] to exped ite testi ng. Not Available [facility] ([facility]) [address] [facility], [place], [address], 12/09/2024 10:12:37 12/06/19 25 12/10/2024 SPECI MEN STATU S REPOR T specimen status report TNP Test not perfo rmed due to the age of this speci men. Test not perfo rmed. Attem pts to conta ct your facil ity were unsuc cessf ul. TEST: [id number] Sedim entat ion Rate- Weste rgren Not Available [facility] ([facility]) [address] [place], [address], 12/10/2024 11:17:09 12/06/19 25 12/08/2024 HEMOG LOBIN A1C hemoglobin A1C 12.8 % 4.8-5. 6 above high normal Predi abete s: 5.7 - 6.4 Diabe karolina: >6.4 Glyce charles contr ol for adult s with diabe karolina: <7.0 Not Available [facility] ([facility]) [address] [facility], [place], [address], 12/10/2024 11:17:10 12/06/19 25 12/10/2024 SEDIM ENTAT ION RATE- WESTE RGREN sedimentatio n rate-westerg hanh - mm/HR Test not perfo rmed due to the age of this speci men. Test not perfo rmed. Attem pts to conta ct your facil ity were unsuc cessf ul. Not Available [facility] ([facility]) [address] [facility], [place], [address], 12/10/2024 11:17:11 12/31/19 25 01/01/2025 SEDIM ENTAT ION RATE- WESTE RGREN sedimentatio n rate-westerg hanh 96 mm/HR 0-32 above high normal Not Available [facility] ([facility]) [address] [place], [address], 01/01/2025 10:12:36 03/18/20 25 03/21/2025 Gluco se [Mass /volu me] in Arter ial blood glucose [mass/volume ] in capillary blood by glucometer 382 mg/dL low: 70mg/d Lhigh: 99mg/d L high Gluco se WB/PO C 382 (H) 70 - 99 mg/dL 03/21 7:08 AM CDT [facility] Not Available Not Available 03/21/2025 09:37:09 03/18/20 25 03/21/2025 Gluco se [Mass /volu me] in Arter ial blood specimen source identified Venous Speci men Type Venou s 03/21 7:08 AM CDT [facility] Not Available Not Available 03/21/2025 09:37:09 03/18/2003/21/2025 Gluco se [Mass /volu me] in Arter ial blood interpretati on and review of laboratory results Abnorm al Not Available Not Available 09:37:09 03/18/2003/18/2025 Chori ogona dotro pin.b eta subun it [Unit s/vol ume] in Serum or Plasm a choriogonado tropin.intac t+beta subunit [units/volum e] in serum or plasma text: mIU/mL Beta- hCG Total Quant itati ve <3 mIU/m L 03/18 2:38 PM CDT [facility] Not Available Not Available 03/21/2025 09:37:08 08/05/2008/04/2023 XR, chest , 2 view No observ ation record ed. [address], [place], [address], 08/05/2023 16:40:30 08/06/2008/06/2023 MRI, brain + brain stem, w/o contr ast No observ ation record ed. [address], [place], [address], 08/06/2023 14:01:07 08/11/2008/07/2023 US, doppl er, venou s No observ ation record ed. [address], [place], [address], 08/11/2023 11:52:24 08/11/20 23 08/11/2023 XR, chest , 2 view No observ ation record ed. [address], [place], [address], 08/12/2023 12:00:22 08/12/20 23 08/12/2023 XR, chest , 2 view No observ ation record ed. [address], [place], [address], 08/13/2023 14:31:59 08/13/20 23 08/13/2023 CT, brain , w/o contr ast No observ ation record ed. [address], [place], [address], 08/13/2023 15:31:08 08/15/20 23 08/15/2023 lab* No observ ation record ed. [address], [place], [address], 08/18/2023 12:55:08 08/15/20 23 08/15/2023 lab* No observ ation record ed. [address], [place], [address], 08/18/2023 12:55:03 08/18/20 23 08/15/2023 lab* No observ ation record ed. [address], [place], [address], 08/18/2023 12:54:44 08/29/20 23 08/06/2023 US, echo ardio gram No observ ation record ed. [email or web address] Not Available 09/13 15:56:53 01/09/20 24 01/07/2024 CT, abdom en + pelvi s, w/ contr ast No observ ation record ed. [address], [place], [address], 01/13/2024 10:52:03 01/14/20 24 01/14/2024 XR, chest , 2 view No observ ation record ed. [address], [place], [address], 01/14/2024 17:10:02 01/15/20 24 01/14/2024 CT, chest , w/ contr ast No observ ation record ed. [address] [address], [place], [address], 01/15/2024 11:46:27 02/16/20 24 02/16/2024 US, abdom en No observ ation record ed. [address] [address], [place], [address], 02/17/2024 09:54:11 02/18/20 24 02/16/2024 CT, chest , w/wo contr ast No observ ation record ed. [address] [address], [place], [address], 02/18/2024 13:01:14 02/22/20 24 02/20/2024 lab* No observ ation record ed. [address] [address], [place], [address], 02/23/2024 07:50:57 02/22/20 24 02/21/2024 lab* No observ ation record ed. [address] [address], [place], [address], 02/23/2024 07:50:52 02/22/20 24 02/22/2024 lab* No observ ation record ed. [address] [address], [place], [address], 02/23/2024 07:50:49 02/23/20 24 02/21/2024 US, axill a No observ ation record ed. [address] [address], [place], [address], 02/24/2024 08:53:11 02/26/20 24 02/16/2024 US, echoc ardio gram No observ ation record ed. [facility] Not Available 2023 18:53:56 05/18/20 24 05/18/2024 XR, chest , 2 view No observ ation record ed. [address], [place], [address], 05/18/2024 15:03:50 05/20/20 24 05/20/2024 XR, chest , 2 view No observ ation record ed. [address], [place], [address], 05/21/2024 09:11:41 07/25/20 24 07/25/2024 XR, shoul brandon, 2 or more view No observ ation record ed. [address], [place], [address], 07/25/2024 15:06:40 07/26/20 24 07/25/2024 CT, chest + abdom en + pelvi s, w/o contr ast No observ ation record ed. [address], [place], [address], 07/26/2024 14:44:50 08/26/20 24 08/25/2024 lab* No observ ation record ed. [address], [place], [address], 08/26/2024 15:11:26 08/26/20 24 08/25/2024 lab* No observ ation record ed. [address], [place], [address], 08/26/2024 15:11:37 09/13/20 24 05/21/2023 US, echoc ardio gram, trans thora cic, compl ete, w/ color flow No observ ation record ed. [facility] Not Available 2023 16:56:55 11/02/20 24 11/02/2024 XR, chest , 2 view No observ ation record ed. [address], [place], [address], 12/21/2024 12:16:11 11/10/19 25 11/10/2024 XR, chest , 1 view No observ ation record ed. [address], [place], [address], 12/21/2024 12:16:11 01/15/20 25 01/13/2025 XR, chest , 2 view No observ ation record ed. [address], [place], [address], 01/14/2025 08:51:16 01/15/20 25 01/14/2025 CT, shoul brandon, w/o contr ast No observ ation record ed. [address], [place], [address], 01/17/2025 09:57:26 01/17/20 25 01/16/2025 XR, chest , 1 view No observ ation record ed. [address], [place], [address], 01/17/2025 09:56:49 01/18/20 25 01/16/2025 CT, foot, w/o contr ast No observ ation record ed. [address], [place], [address], 01/17/2025 09:56:36 Result Notes None recorded. Problems Name Problem SNOMED Code Status Onset Date Resolution Date Notes Provider Name and Address Organization Details Recorded Time Diabetes mellitus 21358761 Active 2022 Betsey Jonas [employer] [place], [place] [facility] 11:54:58 Hypertensiv e disorder 96963887 Active 2022 Betsey Jonas, [employer] [place] [facility] 11:55:13 Edema 524815143 Active 2022 Betsey Jonas [employer] [place] [facility] 11:55:38 Uncontrolle d type 2 diabetes mellitus 269812245 Active 2022 TOÑITO OSWALD Attn: Tylor valerio,[address] [facility], [place], [address], [place] [facility] 3 12:02:47 Amputated left lower limb below knee 856558599 Active 2022 TOÑITO OSWALD Attn: Tylor valerio,[address] [facility], [place], [address], [place] [facility] 3 12:02:50 Essential hypertensio n 05118505 Active 2022 TOÑITO OSWALD Attn: Tylor valerio,[address] [facility], [place], [address], [place] [facility] 3 12:02:48 Hospital inpatient stay within past 30 days 9305568696475 Active 2022 TOIÑTO OSWALD Attn: Tylor valerio,[address] [facility], [place], [address], [place] [facility] 3 15:00:27 Glaucoma 95271757 Active 2022 TOÑITO OSWALD Attn: Tylor valerio,[address] [facility], [place], [address], [place] [facility] 3 16:32:50 Problem Notes None recorded. Medical Equipment None Reported. Allergies No known drug allergies Medications Name Sig Start Date Stop Date Status Note LastModified by Organization Details LastModified Time furosemid e 40 mg tablet TAKE 1 TABLET BY MOUTH ONCE DAILY IN THE MORNING active Not Available Not Available No t Available latanopro st 0.005 % eye drops INSTILL 1 DROP INTO RIGHT EYE NIGHTLY active Not Available Not Available No t [...] Not Available carvedilo l 25 mg tablet one tab po bid 05/05/ 2025 active Not Available Not Available Not Avai [...] completed Not Available Not Available Not Available ofloxacin 0.3 % eye drops INSTILL 1 DROP INTO THE RIGHT EYE 4 TIMES DAILY, START AFTER SURGERY BRING DROP WITH YOU TO SURGERY active Not Available Not Available No t Available hydrocodo ne 5 mg-acetam inophen 325 [...] UNITS SUBCUTAN EOUSLY AT BEDTIME 09/08 completed usp took her off. Not Available Not Available Not Available potassium chloride ER 10 mEq tablet,ex tended release TAKE 1 TABLET BY MOUTH ONCE DAILY 03/20 completed Not Available Not Available Not Available metronida zole 500 mg tablet TAKE 1 TABLET BY MOUTH EVERY 8 HOURS PLEASE FINISH THE COURSE ON 01/25/25 active Not Available Not Available No t Available sulfameth oxazole 800 mg-trimet hoprim 160 mg tablet 01/30 completed Not Available Not Available Not Available tramadol 50 mg tablet TAKE 1 TABLET BY MOUTH EVERY 6 TO 8 HOURS NEEDED FOR 30 DAYS FOR RIGHT SHOULDER PAIN active Not Available Not Available No t Available vancomyci n 1,000 mg intraveno us injection active Not Available Not Available No t Available ketorolac 0.5 % eye drops ADMINIST ER 1 DROP INTO THE RIGHT EYE (FOUR) TIMES A DAY START DROP AFTER SURGERY. BRING DROP TO SURGICAL PROCEDUR E active Not Available Not Available No t Available clonidine HCl 0.2 mg tablet TAKE 1 TABLET BY MOUTH TWICE DAILY 09/08 completed Not Available Not Available Not Available potassium chloride ER 20 mEq tablet,ex tended release(p art/cryst ) 09/08 completed Not Available Not Available Not Available prednisol one acetate 1 % eye drops,flora pension INSTILL 1 DROP INTO RIGHT EYE THREE TIMES DAILY active Not Available Not Available No t Available amlodipin e 10 mg tablet TAKE [...] % eye drops INSTILL 1 DROP INTO RIGHT EYE TWICE DAILY active Not Available Not Available No t Available ketoconaz ole 2 % topical cream [...] completed Not Available Not Available Not Available moxifloxa dali 0.5 % eye drops INSTILL 1 DROP INTO RIGHT EYE THREE TIMES DAILY active Not Available Not Available No t Available nitrofura ntoin monohydra te/macroc rystals 100 mg capsule 01/30 completed Not Available Not Available Not Available acetamino phen active Not Available Not Available Not Available FeroSul 325 mg (65 mg iron) tablet TAKE 1 TABLET BY MOUTH ONCE DAILY BEFORE MEAL(S) FOR 30 DAYS active Not Available Not Available No t Available Lantus Solostar U-100 Insulin 100 unit/mL (3 mL) subcutane ous pen INJECT 30 UNITS SUBCUTAN EOUSLY IN THE MORNING active Not Available Not Available No t Available oxycodone 10 mg tablet Take 1 tablet every 4 hours by oral route. 09/08 completed Not Available Not Available Not Available diflupred andree 0.05 % eye drops INSTILL 1 DROP INTO RIGHT EYE 4 TIMES DAILY active Not Available Not Available No t Available Senexon-S 8.6 mg-50 mg tablet Take [...] Not Available Not Available No t Available Simbrinza 1 %-0.2 % eye drops,flora pension INSTILL 1 DROP INTO RIGHT EYE THREE TIMES DAILY active Not Available Not Available No t Available Trulicity 1.5 mg/0.5 mL subcutane ous pen injector INJECT 1 SYRINGE SUBCUTAN EOUSLY ONCE A WEEK active Not Available Not Available No t Available Trulicity 0.75 mg/0.5 mL subcutane ous pen injector .75 mg subcu weekly 2024 active Not Available Not Available Not Avai lable OneTouch Delica Plus Lancet 33 gauge USE DIRECTED active Not Available Not Available No t Available Slynd 4 mg (28) tablet 2024 active Not Available Not Available Not Avai lable OneTouch Verio Reflect Meter 09/08 completed Not Available Not Available Not Available Vitals Date Recorded Body height Heart rate Respiratory rate Oxygen saturation Oxygen saturation in Arterial blood by Pulse oximetry Systolic And Diastolic Provider Name and Address Organization Details Last Updated DateTime 5 170.18 cm 96 /min 18 /min 99 % 99 % 122/81 mm[Hg] Rosalind Caballero MA [facility] 5 15:03:16 Date Recorded Respiratory rate Body temperature Oxygen saturation Oxygen saturation in Arterial blood by Pulse oximetry Heart rate Systolic And Diastolic Provider Name and Address Organization Details Last Updated DateTime 3 18 /min 97.9 [degF] 98 % 98 % 74 /min 140/92 mm[Hg] Bri Carlton MA [facility] 3 12:48:30 Date Recorded Oxygen saturation Oxygen saturation in Arterial blood by Pulse oximetry Heart rate Respiratory rate Body temperature Systolic And Diastolic Provider Name and Address Organization Details Last Updated DateTime 3 95 % 95 % 97 /min 17 /min 97.6 [degF] 144/86 mm[Hg] Betsey Jonas CMA [facility] 3 14:25:38 Date Recorded Respiratory rate Systolic And Diastolic Provider Name and Address Organization Details Last Updated DateTime 09/08/2024 18 /min 180/110 mm[Hg] TOÑITO OSWALD Attn: Accounting,[address] , [place], [address], [place] [facility] 09/09/2024 10:10:08 Date Recorded Oxygen saturation Oxygen saturation in Arterial blood by Pulse oximetry Heart rate Systolic And Diastolic Provider Name and Address Organization Details Last Updated DateTime 09/08/2024 99 % 99 % 89 /min 186/114 mm[Hg] Yamileth Fournier [place] [facility] 16:46:14 Social History Question Answer Notes LastModified by [employer] Details LastModified Time Tobacco Smoking Status Former Smoker quit 2002 Betsey Jonas CMA null, [place] - [facility] 01/30/2023 11:53:19 What Is Your Level Of Caffeine Consumption? Moderate Information not available 01/30/2023 What Was The Date Of Your Most Recent Tobacco Screening? 12/06/2024 [email or web address] Information not available 12/06/2024 Has Tobacco Cessation Counseling Been Provided? No Information not available 01/30/2023 Sex: Unknown Functional Status Question Answer Note LastModified by [employer] Details LastModified Time Do you use any illicit or recreational drugs? No Information not available 01/30/2023 Do you or have you ever used any other forms of tobacco or nicotine? No Information not available 01/30/2023 What is your level of alcohol consumption? Occasional Information not available 01/30/2023 Mental Status None recorded. Family History Nothing Reported. Medical History Condition Response Coronary Artery Disease N Depression N COPD N Blood Clots N Anxiety Disorder N Acid Reflux (GERD) N Stroke N Eating Disorder N Skin Problems N Asthma N Substance Abuse N Liver Disease N Schizophrenia N Thyroid Problems N GI Problems N Anemia N Heart Attack ([place]) N Diabetes Y Heart Failure N Other N Atrial Fibrillation N High Blood Pressure Y Muscle, Joint, or Bone Problems N Cancer N Headaches N Kidney or Bladder Problems N Allergies Y Hepatitis N ADHD N High Cholesterol N Seizures/Epilepsy N Osteoporosis N Gynecological History Statement/Question Response Menses Monthly Y Duration of Flow (days) 10 Current Control Method None Date of LMP 11/26/2024 LMP Approximate Obstetrics History GPAL:G 0 P 0 0 0 0 Past Encounters Encounter ID Performer Location Encounter Start Date Encounter Closed Date Diagnosis/Indication Diagnosis SNOMED-CT Code Diagnosis ICD10 Code Diagnosis Note [id number] Edwin briceno MD [facility] [address] [place] [address] 01/30/2023 11:38:53 01/30/2023 12:32:15 Uncontrolled type 2 diabetes mellitus 645831524 E11.65 diagnosed age 18Hgb a1c 11.7 on 08/22/22a1 c 6.7 in hospitala1 c today 5.6on SA insulin with meals 5 units, and lantus 5 units at bedtimehas been on PO meds in the pastrecord BS logf/u in 2 wks Amputated left lower limb below knee 075701364 Z89.512 due to necrotizin g fasciitisf ollowing with vascular and wound caremissed wound appt this weekPEx- 2 cm x 2 cm circular superficia l ulceration to plantar heeladvise d pt to make appt MONICA due to new wound and missed apptrefer for prosthetic Essential hypertension 54761251 I10 out of medsBP today 146/94f/u in 2 wks Depression screening 171 292107 Z13.31 PHQ 0 Hospital i npatient stay within past 30 days 7627337608 106 Z76.89 PMH of DM 2, HTN, HFpEF, morbid obesity, MDD , who presented to [facility] on 12/02/2022 for large wound to the [...] surgery on 12/05Patie nt was discharged to [facility] on 12/12/2022 in stable condition, was in rehab for 10-12 days Heart fail ure with normal ejection fraction 666190351 I50.30 Cardiology referralpt reports she was never told she has heart failurewas discharged on lasix 80unknown Cr, elevated during admissionw ill refill at 40 mg Per hospital admission 08/2022:# Heart Failure with Preserved Ejection FractionPa tient [...] BHU-Coreg 12.5 BID Iron defic iency anemia 02476624 D50.9 refill Dilated pupil 12122261 H 57.04 L sclera injected, pupil 4 mm dilated, reactive to lightpt denies pain or vision lossadvise d sister to call [facility] for urgent appt [id number] Edwin briceno MD [facility] [address] [place] [address] 02/14/2023 12:37:29 02/14/2023 13:34:21 Amputated left lower limb below knee 612117485 Z89.512 02/14/23:pr inted off referral and encouraged pt to call to schedule appt 01/30/23:du e to necrotizin g fasciitisf ollowing with vascular and wound caremissed wound appt this weekPEx- 2 cm x 2 cm circular superficia l ulceration to plantar heeladvise d pt to make appt MONICA due to new wound and missed apptrefer for prosthetic Heart fail ure with normal ejection fraction 246078373 I50.30 4/14/23:Toñito esther and sister report never getting a call from cardiology . Given referral so they can contact the office. 01/30/23:Ca rdiology referralpt reports she was never told she has heart failurewas discharged on lasix 80unknown Cr, elevated during admissionw ill refill at 40 mg Per hospital admission 08/2022:# Heart Failure with Preserved Ejection FractionPa esther [...] BID Uncontroll ed type 2 diabetes mellitus 302600454 E11.65 02/14/23:BS post prandial 130-260sst op insulinsta rt metformin 1000Check Lipid panel, CMP, TSH, and FT4f/u in 1 mo with BS log 01/30/23:di agnosed age 18Hgb a1c 11.7 on 08/22/22a1 c 6.7 in hospitala1 c today 5.6on SA insulin with meals 5 units, and lantus 5 units at bedtimehas been on PO meds in the pastrecord BS logf/u in 2 wks Essential hypertension 73647157 I10 02/14/23:BP 140/92did not take meds yet 01/30/23:ou t of medsBP today 146/94f/u in 2 wks Dilated pupil 74666186 H 57.04 02/14/23:PE x- unchanged from prior, L sclera injected, pupil 4 mm dilated, reactive to lightRepor ts following with [facility]. Patient doing shots in each eye every month Iron defic iency anemia 38987367 D50.9 RefillChec k CBC, iron, TIBC, and ferritin levels Open wound, heel 5193113 09 S91.301A 2 cm x 2 cm open ulceration of right heel, no active drainage or bleedingGi bryce wound care suppliesEd ucated patient and family on keeping the wound clean, dry, and coveredRef er to wound care at [facility] [id number] Edwin briceno MD [facility] [address] [place] [address] 03/20/2023 14:14:57 03/20/2023 15:00:39 Open wound, heel 341347317 S91.301A 03/20/23:sa w wound care 03/18/23, goes once a weekXR negative for osteomyeli tis of R foot, has upcoming MRI and US for lymphedema to BLE 02/14/23:2 cm x 2 cm open ulceration of right heel, no active drainage or bleedingGi bryce wound care suppliesEd ucated patient and family on keeping the wound clean, dry, and coveredRef er to wound care at [facility] Uncontroll ed type 2 diabetes mellitus 902175081 E11.65 03/20/23:we nt to hospital 02/12/23, stopped [...] BS logf/u in 2 wks Essential hypertension 40727850 I10 03/20/23:BP 144/86card io started losartan 25on amlodipine 10 and carvedilol 12.5 BIDdid not take meds 02/14/23:BP 140/92did not take meds yet 01/30/23:ou t of medsBP today 146/94f/u in 2 wks Amputated left lower limb below knee 452296069 Z89.512 03/20/23:olivo karsten prosthetic eval at [facility], rec'd PT before prosthetic pt wants inpatient [...] Heart fail ure with normal ejection fraction 437274178 I50.30 03/20/23:Sa w cardio 03/18, Dr. Mendez, labs requested per Dr. Sandy arteaga stress test, started her on potassium 20, losartan 25, furosemide 20has f/u appt 04/22/23 02/14/23:Toñito esther and sister report never getting a call from cardiology . Given referral so they can contact the office. 01/30/23:Ca rdiology referralpt reports she was never told she has heart failurewas discharged on lasix 80unknown Cr, elevated during admissionw ill refill at 40 mg Per hospital admission 08/2022:# Heart Failure with Preserved Ejection FractionPa esther [...] DC to IP BHU-Coreg 12.5 BID Glaucoma 34901950 H40.9 03/20/23:to ld she has glaucoma in L eyefollowi ng with [facility] once a month 02/14/23:PE x- unchanged from prior, L sclera injected, pupil 4 mm dilated, reactive to lightRepor ts following with [facility]. Patient doing shots in each eye every month [id number] Adolfo Castañeda MD [facility] [address] [place] [address] 09/08/2024 16:37:58 09/08/2024 17:18:03 Hospital inpatient stay within past 30 days 3586299319 106 Z76.89 Admitted to [facility] 08/26/24 to 09/01/24 Right shoulder pain [...] Heart fail ure with normal ejection fraction 581431644 I50.30 09/08/24:HF pEF- last TTE 07/30/24 showing [...] losartan 25, furosemide 20has f/u appt 04/22/23 02/14/23:Toñito santana and sister report never getting a call from cardiology . Given referral so they can contact the office. 01/30/23:Ca rdiology referralpt reports she was never told she has heart failurewas discharged on lasix 80unknown Cr, elevated during admissionw ill refill at 40 mg Per hospital admission 08/2022:# Heart Failure with Preserved Ejection FractionPa esther [...] PO on 08/25 and DC to IP U-Coreg 12.5 BID Essential hypertension 63853104 I10 09/08/24: did not take meds today, BP 180/110 x2 03/20/23:BP 144/86card io started losartan 25on amlodipine 10 and carvedilol 12.5 BIDdid not take meds 02/14/23:BP 140/92did not take meds yet 01/30/23:ou t of medsBP today 146/94f/u in 2 wks Diabetic p eripheral neuropathy 174535124 E11.40 refill Acute deep venous thrombosis of right upper extremity 1152066501 84797 I82.621 R shoulderre fill Chronic constipation 236 299037 K59.09 refill Pain of ri ght shoulder joint 8022834836 6646936 M25.511 septic arthritisr equesting oxycodone refilldisc ussed with pt would not be filling pain medication s long termwill give script of tramadol, future referral to PMrefill methocarba mol Difficulty sleeping 3013 19414 Z72.820 requesting trazodone to help her sleep, can interact with Eliquisno relief with OTC meds Contraception care 79702 5005 Z30.40 last period 07/2024 and wants to regulate cyclesurin e preg negativewi ll send slynd Bilateral cataracts 9572 2003 [facility] 276800308 E11.65 09/08/24: a1c inpatient 7.4%wants to re-start [...] logf/u in 2 wks Depression screening 171 902892 Z13.31 PHQ 0 [id number] Natalee Jennings MD [facility] [address] [place] [address] 12/06/2024 14:49:58 12/09/2024 10:25:28 Pain of right shoulder joint 6874414432 1803083 M25.511 Right shoulder pain. Reviewed orthopedic note [...] one month to reevauate. Type 2 jassi lolis mellitus 60034969 E11.21 Will check a Hemoglobin A1C to try to get a sense of diabetic control. Amputated right lower limb below knee 239947457 Z89.511 Will refer her for gait training. Ulcer of heel 697349103 L97.409 Sent for wound care. Last saw infection disease doctor two weeks ago. I did not undo dressing today. Will re evaluate it at follow up. Essential hypertension 71179725 I10 Blood pressure good today. Heart fail ure with normal ejection fraction 209690465 I50.30 [id number] Adolfo Castañeda MD [facility] [address] [place] [address] 12/31/2024 11:33:03 12/31/2024 11:43:52 Health Concerns Section Related Observation LastModified by Organization Detai ls LastModified Time None Recorded Concern Status LastModified by Organization Details LastModified Time None Recorded Advance Directives Directive None Recorded Payers Encounter Date Sequence Insurance Name Policy Number Policy Bobo Covered Member ID Bobo Member ID Guarantor Name 02/14/2023 1 [facility] (MEDICAID REPLACEMENT - HMO) [id number] Gay Canales [id number] Gay Canales 03/20/2023 1 [facility] (MEDICAID REPLACEMENT - HMO) [id number] Gay Canales [id number] Gay Canales 09/08/2024 1 [facility] (MEDICAID HMO) [id number] Gay Canales [id number] Gay Canales 12/06/2024 1 [facility] (MEDICAID HMO) [id number] Gay Canales [id number] Gay Canales 12/31/2024 1 [facility] (MEDICAID HMO) [id number] Gay Canales [id number] Gay Canales Notes Date Note Type Note [...] pain, shortness of breath, headache, and dysuria. TOÑITO OSWALD Attn: Accounting, 1 [facility], [place], [address], [facility] 02/14/2023 15:04:55 03/20/2023 text/html Pt presents for [...] furosemide. Edwin Call MD Attn: Accounting, 1 [facility], [place], [address], [facility] 03/24/2023 10:00:05 09/08/2024 text/html Pt presents to re-establish care. Last OV 03/2023. Most recent hospitalization was due to septic R shoulder and currently has drain. States that she was in a usp for the past year. Requesting med refills. TOÑITO OSWALD Attn: Accounting, 1 [facility], [place], [address], [facility] 09/09/2024 10:20:36 12/06/2024 text/html S/P BKA, was sup posed to do gait training with Loc, it was going to be on an inpatient basis but they could not manage her dialysis, needs outpatient gait training now, had amputation and learning how to walk again, was in usp a year, was going to stay at [facility] while getting PT but don't accommodate dialysis, also needs wound care referral, saw an infectious disease doctor the end of November for heel ulcer and wants her to see account review specialist, has been out of hospital since [...] Natalee Jennings MD Attn: Accounting,[address], [place], [address], [facility] 12/06/2024 18:42:06 OBGyn Episode No OBEpisode recorded.
--- OUTSIDE RECORDS SUMMARY | 2025-03-28 02:31 | XMS_ITS | Referral Summary ---
Author Organization [facility] Address [address] [place] [address] Care Team Providers Care Analytics Director Name Role Phone Cherise Patrick Primary Care Provider [phone] Encounters Date Type Department Care Team Description 02/24/2025 11:10 AM CDT Office Visit [facility] Ophthalmology [address] [place] [phone] Luis Rodriguez MD Traction detachment of both retinas (Primary Dx); Neovascular glaucoma of right eye, severe stage 02/21/2025 11:00 AM CDT Office Visit [facility] Ophthalmology [address] [place] [address] [place] [phone] Sumi Gupta MD Neovascular glaucoma of right eye, severe stage (Primary Dx) 02/18/2025 3:45 PM CDT Office Visit [facility] Ophthalmology [address] [place] [phone] Bita Vega MD Pseudophakia, right eye (Primary Dx); Neovascular glaucoma of right eye, indeterminate stage; Traction detachment of both retinas 01/25/2025 9:15 AM CDT Office Visit [facility] Ophthalmology [address] [facility] [address], [address] [place] [address] Bita Vega MD Pseudophakia, right eye (Primary Dx); Traction detachment of both retinas 01/12/2025 Telephone [facility] Ophthalmology [address] [phone] Nancie Hoyos MD 01/11/2025 9:15 AM CDT Office Visit [facility] Ophthalmology [address] [facility] [address] [facility], [address] [place] [address] Bita Vega MD Pseudophakia, right eye (Primary Dx) 01/10/2025 10:30 AM CDT - 01/10/2025 11:15 AM CDT Surgery [facility] [address] [place] [address] Bita Vega MD COMPLEX EXTRACTION CATARACT - PHACOEMULSIFICATION AND LENS IMPLANT 01/10/2025 11:39 AM CDT Anesthesia Event [facility] ([facility]) [address] [place] [address] Carla Neri MD Mallette, Allison Anne, NP 01/10/2025 8:34 AM CDT - 01/10/2025 12:39 PM CDT Hospital Encounter [facility]) [address] [place] [address] Bita Vega MD 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] (Primary Dx) Discharge Disposition: Discharge to home or self care 01/06/2025 Telephone [facility] [address] [phone] Bita Vega MD 12/29/2024 Telephone [facility] Ophthalmology [address] [place] [phone] Bita Vega MD Med Refill; Rx change from Last 3 Months Allergies No known active allergies Medications furosemide (LASIX) 40 mg tabletIndicati ons:hypertensi on Take 1 tablet (40 mg total) by mouth bottled beverage inspector before breakfast Active carvediloL (COREG) 12.5 mg tabletIndicati ons:hypertensi on Take 1 tablet (12.5 mg total) by mouth 2 (two) times a day with meals Active amLODIPine (NORVASC) 10 mg tabletIndicati ons:hypertensi on Take 1 tablet (10 mg total) by mouth bottled beverage inspector before breakfast Active dulaglutide (TRULICITY) 0.75 mg/0.5 [...] 1 tablet (20 mg total) by mouth bottled beverage inspector before breakfast Active gabapentin (NEURONTIN) 300 mg [...] eye. Assessment & Plan (11/01/2024 2:13 PM MINING HELPER): With severe tractional retinal detachments in both [...] wish to proceed. Plan: CE/IOL with Dr Veag, when stable post op from cataract surgery [...] Never 04/16/2023 How often do you attend anabaptism or mandaeism serv ices? Never 04/16/2023 Do you belong to any clubs o r organizations such as anabaptism groups, unions, fraternal or athletic groups, or [...] file Legal Sex Female 8:53 PM MINING HELPER Gender Identity Female 12/23/2024 9:35 AM MINING HELPER Sexual Orientation Straight 12/23/2024 9: 35 AM MINING HELPER Last Filed Vital Signs Vital Sign Reading [...] 9:02 AM CDT Height 170.2 cm (5' 7) 12/23/2024 9:15 AM MINING HELPER Body Mass Index 38.84 12/23/2024 9:15 AM MINING HELPER Plan of Treatment Not on file Medical Devices Implanted Type Area Moss Picker Device Identifier Shelf Expiration Date Model / Serial / Lot [employer] Lens Iol [id number] Clareon [employer]va [employer]onom Cca0t0.225 - [id number] - [id number] Implanted:Qty: 1 on 01/10/2025 by Bita Vega MD at [facility] Lens Right: Eye [employer] 06/14/2026 [id number] / [id number] Procedures Procedure Name Priority Date/Time Associated Diagnosis Comments B-SCAN ULTRASOUND 75128 - OD - RIGHT EYE Routine 02/24/2025 [...] URINE Routine 01/10/2025 9:30 AM CDT POCT IH-K-XKO-GLU-HCT,WB - ISTAT Routine 01/10/2025 9:28 AM CDT EGFR Routine 09/23/2023 5:39 PM MINING HELPER ALBUMIN CREATININE RATIO, URINE Routine 04/17/2023 4:23 PM CDT LIPID PANEL Routine 04/17/2023 1:03 PM CDT HEMOGLOBIN A1C Routine 04/16/2023 7:06 AM CDT from Last 3 Months or Most Recently Relevant to Health Maintenance Results * B-SCAN ULTRASOUND 55267 - OD - RIGHT EYE (02/24/2025 12:45 [...] Iop 55--> 22 us Bita Vega MD [facility] PROCEDURES Fin al Result * (ABNORMAL) POCT glucose (01/10/2025 12:14 PM CDT) Glucose, POC 249(H) 70 - 199 mg/dL Blood 01/10/2025 12:1 4 PM CDT 01/10/2025 12:14 PM CDT Result [facility] Bita Vega MD LAB POCT ORDERABLES - DEVIC E Final Result Performing Organization Address City/[facility] Co de Phone Number [facility] [place] [address] * (ABNORMAL) POCT glucose (01/10/2025 11:22 AM CDT) Glucose, POC 334(H) 70 - 199 mg/dL Blood 01/10/2025 11:2 2 AM CDT 01/10/2025 11:22 AM CDT us Bita Vega MD LAB POCT ORDERABLES - DEVIC E Final Result Performing Organization Address City/[facility] Co de Phone Number [facility] Department [place] [address] * (ABNORMAL) POCT glucose (01/10/2025 10:34 AM CDT) Pathologist [facility] Glucose, POC 377(H) 70 - 199 mg/dL Blood 01/10/2025 10:3 4 AM CDT 01/10/2025 10:34 AM CDT Bita Vega MD LAB POCT ORDERABLES - DEVIC E Final Result Performing Organization Address City/[facility]/ZIP Co de Phone Number [facility] Department [place] [address] * POCT hCG, urine (01/10/2025 9:30 AM CDT) [facility] HCG, ur, POC Negative Negative Lot Number [id number] QC Backgroud Clear Acceptable QC Control Line Acceptable Urine 01/10/2025 9:30 AM CDT Carla Neri MD POINT OF CARE TEST ORDERA BLES Final Result * (ABNORMAL) POCT AN-E-MVA-GLU-HCT, WB - ISTAT (01/10/2025 9:28 AM CDT) [facility] Na POC 132(L) 135 - 145 mmol/L K POC 4.4 3.3 - 4.9 mmol/L [facility] Comment: Interpretive Data This method is not able to assess for hemolysis, which may falsely increase potassium concentrations. If further testing is needed to evaluate this result, consider in-laboratory plasma potassium. Current Interpretive Data was last revised on 2022. Glucose POC i-STAT 438(H) 70 - 199 mg/dL [facility] Hct, POC 39.0 35.6 - 45.5 % [facility] Blood 01/10/2025 9:28 AM CDT 01/10/2025 9:28 AM CDT Bita Vega MD LAB POCT ORDERABLES - DEVIC E Final Result Performing Organization Address [facility] Co de Phone Number [facility] Department [place] [address] * eGFR (09/23/2023 5:39 PM MINING HELPER) eGFR 22 mL/min/1. 73 m2 [facility] BRADEN [...] last reviewed 2021. Blood 09/23/2023 5:39 PM MINING HELPER 09/23/2023 8:31 PM MINING HELPER Tyrel Simmons MD LAB BLOOD ORDERABLES Final Result DWIGHT [address] [facility] Department [place] [address] * (ABNORMAL) Albumin Creatinine Ratio, Urine (04/17/2023 [...] LAB URINE ORDERABLES Final Re sult DWIGHT [address] [facility] Department [place] [address] * (ABNORMAL) Lipid panel (04/17/2023 1:03 PM [...] BLOOD ORDERABLES Final Re sult DW[facility] DOWD [address] [facility] Department [place] [address] * (ABNORMAL) Hemoglobin A1c (04/16/2023 [...] and children were not included. (Diabetes Care 31:0029-1855, 2008). The eAG is not equivalent to a fasting glucose. Blood 04/16/2023 7:06 AM CDT 04/16/2023 7:45 AM CDT us Amilcar Estrada MD LAB BLOOD ORDERABLES Final Re sult AMANDAJONNIE [address] [facility] Department [place] [address] from Last 3 Months or Most Recently Relevant to Health Maintenance Insurance [facility] OTHER Address: [facility] [address] [place] [address] [facility] MEDICARE Advance Directives For more information, please contact: [phone] Documents on File Type Date Recorded Patient Flange Turner Expl anation ADVANCE DIRECTIVE 04/23/2023 12:11 PM Breana r of Chronograph Operator-Medical ADVANCE DIRECTIVE 04/23/2023 12:11 PM POLS [...] Relationship Healthcare Agent Relationship Communication Kianna Nunez [facility] Health Care Agent [email or web address] Suellen Resendiz Mother [facility] Health Care Agent [email or web address] Care Teams Analytics Director Relationship Specialty Start Date End Date Cherise Patrick PA [address] [place] [address] PCP - General Physician Speech Professor 02/20/23
--- OUTSIDE RECORDS SUMMARY | 2025-03-28 02:31 | XMS_ITS | Clinical Summary ---
Author Organization [facility] Address [address] [place] [address] Care Team Providers Care Armature Connector Name Role Phone Cherise Patrick PA-C Primary Care Provider [phone] Source Comments [facility],non-owned Affiliates and Associated Physician Practices is amultiple site organization consisting of ambulatory clinics and hospital sitesin [place], [place], [place] and [place]. This disclosure is being madepursuant to the Care Everywhere program and may not contain all information available regarding this patient. Last updated 18.[employer] [facility] Allergies No known active allergies Medications * [...] Reported on 08/27/2024 Blood Glucose Monitoring Suppl ([employer]comm[employer] Verio Reflect) w/Device KITIndications: CALL AUSTYN WHEN [...] Active Gauze Pads & Dressings (Gauze Dressing) 4X4 PADS Use 1 Pad every 2 days [...] - 03/18/2025 4:25 PM CDT Hospital Encounter [facility] OP [address] [place] [address] Artie Harmon MD [facility] Discharge Disposition: Home or Self Care 03/16/[address] [facility] [address] [place] [address] Artie Harmon MD ESRD (end stage renal [...] Recorded PHQ2 TOTAL SCORE 0 06/10/2023 [facility] - Occupational [...] place to sleep or slept in a residential (including now)? No 07/26/2024 Comments No Sex and Gender Information Value Date Recorded Sex Assigned at Not on file Legal Sex Female 6:46 AM COUNSELING CENTER DIRECTOR Gender Identity Not on file Sexual Orientation [...] 12:29 PM CDT Height 162.6 cm (5' 4) 03/18/2025 12:29 PM CDT left AKA Body [...] this topic Medical Devices Implanted Type Area [employer] Distribution Consultant Device Identifier Shelf Expiration Date Model / Serial / Lot Kit Durathane Drflw Embosafe Chrnc Dlys Implanted:Qty: 1 on 02/25/2024 by Artie Harmon MD at [facility] Right: Chest [employer] 07/03/2026 [id number] / / [id number] Description:IMPLANTED BY DR. JUAN Gill Durathane Drflw Embosafe Chrnc Dlys Implanted:Qty: 1 on 08/06/2024 by Artie Harmon MD at [facility] Left: Chest Wall [employer] 07/03/2026 [id number] / / [id number] Description:Implanted in the left chest wall, via the [facility], by Dr. Candy Harmon. Kit Durathane Drflw Embosafe Chrnc Dlys Implanted:Qty: 1 on 03/18/2025 by Rio Monk MD at [facility] [employer] 12/03/2026 [id number] / / [id number] Procedures Procedure Name Priority Date/Time Associated Diagnosis Comments IR CENTRAL LINE INSERT TUNNEL Routine 03/18/2025 3:20 PM CDT ESRD (end stage renal disease) (HCC) GLUCOSE - POINT OF CARE Routine 03/18/2025 1:39 PM CDT HCG BETA BLOOD QUANTITATIVE STAT 03/18/2025 1:38 PM CDT Pre-op evaluation HEMOGLOBIN A1C Routine 08/28/2024 8:29 PM CDT HEPATITIS C AB SCREEN RFLX NAAT QUANT Routine 05/31/2024 6:38 PM CDT HIV-1 HIV-2 ANTIBODY + HIV P24 AG PANEL STAT 02/24/2024 8:57 AM CDT from Last 3 Months or Most Recently Relevant to Health Maintenance Results * IR Central Line Insert Tunnel (03/18/2025 3:20 PM CDT) Anatomical Region Laterality Modality Chest, Upper Extremity X-Ray Ang iography 03/20/2025 7:54 AM CDT Narrative 03/20/2025 7:59 AM CDT PROCEDURE: IR CENTRAL LINE INSERT TUNNEL DATE/TIME OF EXAM: 03/18/2025 3:43 PM CLINICAL INFORMATION: None relevant/not provided if blank. Indication: N18.6: ESRD (end stage renal disease) (HCC) Additional History: COMPARISON: None. FLUOROSCOPY DOSE: mGy Reference air kerma (ka,r). MEDICATIONS: None. Contrast: None Complications: None immediate PROCEDURE: Drink Waiter: Rio Monk Procedures performed: 1. Replacement of tunneled dialysis access catheter through same venous access 2. Disruption of fibrin sheath with angioplasty 3. Fluoroscopic guidance for central venous catheter procedure 4. Moderate sedation This patient was referred for replacement of tunneled dialysis was access catheter which was no longer working satisfactorily. Following informed consent the patient was taken to the angiography suite and placed on the fluoroscopy table. The skin of the left neck and chest, including an existing left IJ tunneled dialysis catheter was prepared with chlorhexidine and sterile drapes were applied. The stay sutures around existing left internal jugular dialysis access catheter were removed and local anesthetic was infiltrated around the exit site. Using blunt dissection the cuff was freed from surrounding tissues and brought to the exterior. A stiff Glidewire was then inserted through the blue port of the catheter and manipulated to the right atrium. The existing catheter was then partially removed over the guidewire. Injection of contrast revealed the presence of a fibrin sheath on the dialysis catheter. The dialysis catheter was then removed leaving the guidewire in place. A 10 mm x 40 mm conquest angioplasty balloon was then advanced to the central veins and inflated to disrupt the fibrin sheath. The angioplasty balloon was then withdrawn leaving the guidewire place. A new 28cm Duraflow 2 dialysis access catheter was then advanced over the wire and contrast was injected which confirmed satisfactory removal of the fibrin sheath. The catheter was then advanced to the right atrium. The wire was then removed. Both lumens flushed easily and locked with heparin. Fluoroscopy confirmed the presence of the catheter tip at the right atrium. The catheter was sutured in place at the exit site with 2-0 nylon. A sterile CHD dressing was then applied. Moderate sedation on this adult patient was ordered by me, administered intravenously in my presence, and monitored by the procedure nurse as an independent trained observer who was present throughout the procedure. The following parameters were monitored: oxygen saturation, heart rate, blood pressure, and response to care. Intra-service sedation start time was 15:14 and end time was 15:34 during which I was present. Total physician intra-service sedation time was 20 minutes. For details on pre-moderate sedation and post-moderate sedation patient evaluation, please review the evaluation forms in [facility]. For details on monitored clinical parameters during the intra-service sedation time, please review the procedure nurse documentation in [facility]. The patient tolerated procedure without difficulty. I was present for the entire procedure. > Interpreting Provider: Rio Monk MD on 03/20/2025 7:59 AM Procedure Note Rio Monk MD - 03/20/2025 PROCEDURE: IR CENTRAL LINE INSERT TUNNEL DATE/TIME OF EXAM: 03/18/2025 3:43 PM CLINICAL INFORMATION: None relevant/not provided if blank. Indication: N18.6: ESRD (end stage renal disease) ([facility]) Additional History: COMPARISON: None. FLUOROSCOPY DOSE: mGy Reference air kerma (ka,r). MEDICATIONS: None. Contrast: None Complications: None immediate PROCEDURE: Drink Waiter: Rio Monk Procedures performed: 1. Replacement of tunneled dialysis access catheter through same venous access 2. Disruption of fibrin sheath with angioplasty 3. Fluoroscopic guidance for central venous catheter procedure 4. Moderate sedation This patient was referred for replacement of tunneled dialysis wasaccess catheter which was no longer working satisfactorily. Following informed consent the patient was taken to the angiographysuite and placed on the fluoroscopy table. The skin of the left neck andchest, including an existing left IJ tunneled dialysis catheter was preparedwith chlorhexidine and sterile drapes were applied. The stay sutures around existing left internal jugular dialysis access catheter were removed and local anesthetic was infiltrated around the exit site. Using blunt dissection the cuff was freed from surrounding tissues and brought tothe exterior. A stiff Glidewire was then inserted through the blue port ofthe catheter and manipulated to the right atrium. The existing catheter was then partially removed over the guidewire. Injection of contrastrevealed the presence of a fibrin sheath on the dialysis catheter. The dialysis catheter was then removed leaving the guidewire in place. A 10 mm x 40mm conquest angioplasty balloon was then advanced to the central veins and inflated to disrupt the fibrin sheath. The angioplasty balloon was then withdrawn leaving the guidewire place. A new 28cm Duraflow 2 dialysis access catheter was then advanced over the wire and contrast wasinjected which confirmed satisfactory removal of the fibrin sheath. The catheterwas then advanced to the right atrium. The wire was then removed. Bothlumens flushed easily and locked with heparin. Fluoroscopy confirmed thepresence of the catheter tip at the right atrium. The catheter was sutured inplace at the exit site with 2-0 nylon. A sterile CHD dressing was thenapplied. Moderate sedation on this adult patient was ordered by me, administered intravenously in my presence, and monitored by the procedure nurse as an independent trained observer who was present throughout the procedure.The following parameters were monitored: oxygen saturation, heart rate,blood pressure, and response to care. Intra-service sedation start time was15:14 and end time was 15:34 during which I was present. Total physician intra-service sedation time was 20 minutes. For details on pre-moderate sedation and post-moderate sedation patient evaluation, please reviewthe evaluation forms in [facility]. For details on monitored clinical parameters during the intra-service sedation time, please review the procedurenurse documentation in [facility]. The patient tolerated procedure without difficulty. I was present for the entire procedure. > Interpreting Provider: Rio Monk MD on 03/20/2025 7:59 AM Doug-Candy Harmon MD IR ORDERABLES Final Result * (ABNORMAL) GLUCOSE - POINT OF CARE (03/18/2025 1:39 PM CDT) [facility] Glucose WB/POC 382(H) 70 - 99 mg/dL 03/21/2025 7:08 AM CDT [facility] Specimen Type Venous 03/21/2025 7:08 AM CDT [facility] Blood BLOOD SPECIMEN / Unknown 03/18/2025 1:39 PM CDT 03/21/2025 7:08 AM CDT Artie Harmon MD LAB - POINT OF CARE ORDERABLES F inal Result Performing Organization Address [facility]/ZIP Co de Phone Number [address] [address], [facility] [phone] * HCG BETA BLOOD QUANTITATIVE (03/18/2025 1:38 PM CDT) [facility] Beta-hCG Total Quantitative <3 mIU/mL 03/18/2025 2:38 PM CDT [facility] Comment: HCG Numeric Result Interpretation: Non- [...] MD LAB - CHEMISTRY ORDERABLES Final Result Performing Organization Address [facility]/ZIP Co de Phone Number [address] [address], [place] [phone] * (ABNORMAL) HEMOGLOBIN A1C (08/28/2024 8:29 PM CDT) [facility] Hemoglobin A1c 7.4(H) <=5.6 % 08/29/2024 8:36 AM CDT [facility] Estimated Average Glucose 166 mg/dL 08/29/2024 8:[address] [facility] Comment: HbA1c Interpretation: Normal : < [...] ORDERABLES Fin al Result Performing Organization Address City/[facility]/ZIP Co de Phone Number [address] [address], [place] [phone] * HEPATITIS C AB SCREEN RFLX NAAT QUANT (05/31/2024 6:38 PM CDT) Hepatitis C Antibody Non-react talia Encisoreleah tipia 05/31/2024 7:33 PM CDT [facility] Comment:Hepatitis C Antibody screen indicates no [...] ORDERAB LES Final Result Performing Organization Address City/[facility]/ZIP Co de Phone Number [address] [address], [place] [phone] * HIV-1 HIV-2 ANTIBODY + HIV P24 AG PANEL (02/24/2024 8:57 AM CDT) HIV Antigen/Antibod y 1 & 2 Non-reacti ve Non-react talia 02/24/2024 10:[address] [facility] Comment:No Laboratory eviden ce of HIV infection. 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
--- OUTSIDE RECORDS SUMMARY | 2025-03-28 02:31 | XMS_ITS | Data Portability ---
Author Organization [place] - [facility] OFFICE Address [address] [place] [address] Assessment Encounter Date Assessment Date Assessment LastModified [...] None recorded. Imaging electrocard iogram 2022 023 [facility] [place], [address], 3 16:58:23 Medication Orders potassium chloride ER 20 mEq tablet,exte nded release 2022 023 [facility] [address] [place], [address], 3 17:02:16 Lasix 20 mg tablet 2022 023 [facility] [address] [place], [address], 3 17:02:18 losartan 25 mg tablet 2022 023 [facility] [address] [place], [address], 3 17:02:17 Patient TargetsNo targets recorded. Patient Instructions Encounter Date Encounter Id Patient Instructions Last Modified By Organization Details Last Modified Time 03/18/2023 [id number] type 2 diabetes: care instructions eyassin Not [...] Time Uncontro lled type 2 diabetes mellitus [id number] Active 2022 [place], [place] - [facility] 15:53:39 Hyperten sive disorder 42462042 Active 2022 [place] Av[place] [facility] 3 15:53:37 Edema 368727985 Active 2022 [place] [facility] 3 11:51:16 [facility] days 20599449548 06 Completed 202203/05/2023 [place] oMses [place] [facility] 3 11:55:46 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 34 g 50.6 kg/m2 170.18 cm 71 /min 87 % 87 % 150 mm[Hg] 100 mm[Hg] Joseph Moses [facility] 3 16:35:36 Social History Question Answer Notes LastModified by Organizat ion Details LastModified Time Tobacco Smoking Status Never Smoker Mike Moses [facility] 03/05/2023 13:06:35 Are You Blind Or Do [...] Or The Highest Degree You Have Received? FH60489-2 Information not available 03/05/2023 Are There Any [...] Functional Status Question Answer Note LastModified by Boxbee ion Details LastModified Time Do you use [...] Mental Status Question Answer Note LastModified by 9Lensesat ion Details LastModified Time Do you feel stressed (tense, restless, nervous, or anxious, or unable to sleep at night)? HM0273-7 Information not available 03/18/2023 Do you have [...] SNOMED-CT Code Diagnosis ICD10 Code Diagnosis Note 62525 Casper Delgado MD [place] OFFICE [address] [place] [phone] 1 03/18/2023 14:45:35 03/18/2023 17:04:19 Essential hypertension 35917938 I10 elevated todayshe is taking amlodipin 10 mg and coreg 12.5 mg dailystart ing losartan 25 mg daily Type 2 jassi betes mellitus without complication 027274706 E11.9 controlled by PCP Dyspnea on exertion 6084 5006 R06.09 will do echo to see the structure of her heart Lexiscan Myoview stress test, pt can not walk. Has known coronary artery disease, with atypical symptoms now Edema of l ower extremity 241989375 R60.0 will start her on lasix 20 mg BID daily Health Concerns Section Related Observation LastModified by Organization Detai ls LastModified Time None Recorded Concern Status LastModified by Organization Details LastModified Time None Recorded Advance Directives Directive None Recorded Payers Insurance Date Sequence Insurance Name Policy Number Policy Bobo Covered Member ID Bobo Member ID Guarantor Name 03/18/2023 2 [place] [employer] [place] [employer] Gay Mata [id number] Gay Mata 04/19/2023 1 [facility] (MEDICAID REPLACEMENT - HMO) [id number] Gay Mata [id number] Gay Mata Notes Date Note Type Note [...]
--- OUTSIDE RECORDS SUMMARY | 2025-03-28 02:31 | XMS_ITS | Clinical Summary ---
Author Organization [facility] Address [address] [place] [address] Care Team Providers Care Student Life Dean Name Role Phone Cherise Patrick Primary Care Provider [phone] Allergies No known active allergies Medications furosemide (LASIX) 40 mg tabletIndicati ons:hypertensi on Take 1 tablet (40 mg total) by mouth petrologist before breakfast Active carvediloL (COREG) 12.5 mg tabletIndicati ons:hypertensi on Take 1 tablet (12.5 mg total) by mouth 2 (two) times a day with meals Active amLODIPine (NORVASC) 10 mg tabletIndicati ons:hypertensi on Take 1 tablet (10 mg total) by mouth petrologist before breakfast Active dulaglutide (TRULICITY) 0.75 mg/0.5 [...] 1 tablet (20 mg total) by mouth petrologist before breakfast Active gabapentin (NEURONTIN) 300 mg [...] eye. 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): With severe tractional retinal detachments in both [...] CDT Office Visit [facility] [address] [phone] Lius Rodriguez MD Traction detachment of both retinas (Primary Dx); Neovascular glaucoma of right eye, severe stage 02/21/2025 11:00 AM CDT Office Visit [facility] [address] [place] [phone] Sumi Gupta MD Neovascular glaucoma of right eye, severe stage (Primary Dx) 02/18/2025 3:45 PM CDT Office Visit [facility] [address] [place] [phone] Bita Vega MD Pseudophakia, right eye (Primary Dx); Neovascular glaucoma of right eye, indeterminate stage; Traction detachment of both retinas 01/25/2025 9:15 AM CDT Office Visit [facility] [address], [address] [place] [phone] Bita Vega MD Pseudophakia, right eye (Primary Dx); Traction detachment of both retinas 01/12/2025 Telephone [facility] [address] [place] [phone] Nancie Hoyos MD 01/11/2025 9:15 AM CDT Office Visit [facility] [address], [address] [place] [phone] Bita Vega MD Pseudophakia, right eye (Primary Dx) 01/10/2025 11:39 AM CDT Anesthesia Event [facility] [address] [place] [address] Carla Neri MD Mallette, Allison Anne, NP 01/10/2025 10:30 AM CDT - 01/10/2025 11:15 AM CDT Surgery [facility] [address] [place] [address] Bita Vega MD COMPLEX EXTRACTION CATARACT - PHACOEMULSIFICATION AND LENS IMPLANT 01/10/2025 8:34 AM CDT - 01/10/2025 12:39 PM CDT Hospital Encounter [facility] [address] [place] [address] Bita Vega MD 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 Plan of Treatment Health Maintenance Due Date [...] 04/25/2008, 08/13/2007 Medical Devices Implanted Type Area Cop Examiner Device Identifier Shelf Expiration Date Model / Serial / Lot [employer] Lens Iol [id number] Clareon [employer]va [employer]onom [id number] - [id number] - [id number] Implanted:Qty: 1 on 01/10/2025 by Bita Vega MD at [facility] Lens Right: Eye [employer] 06/14/2026 [id number] / [id number] Procedures Procedure Name Priority Date/Time Associated Diagnosis Comments B-SCAN ULTRASOUND 86070 - OD - RIGHT EYE Routine 02/24/2025 [...] URINE Routine 01/10/2025 9:30 AM CDT POCT MT-C-XWP-GLU-HCT,WB - ISTAT Routine 01/10/2025 9:28 AM CDT EGFR Routine 09/23/2023 5:39 PM 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 ALBUMIN CREATININE RATIO, URINE Routine 04/17/2023 4:23 PM CDT LIPID PANEL Routine 04/17/2023 1:03 PM CDT HEMOGLOBIN A1C Routine 04/16/2023 7:06 AM CDT from Last 3 Months or Most Recently Relevant to Health Maintenance Results * B-SCAN ULTRASOUND 36796 - OD - RIGHT EYE (02/24/2025 12:45 [...] Iop 55--> 22 Result Rosie Vega MD [facility] PROCEDURES Fin al Result * (ABNORMAL) POCT glucose (01/10/2025 12:14 PM CDT) Glucose, POC 249(H) 70 - 199 mg/dL Blood 01/10/2025 12:1 4 PM CDT 01/10/2025 12:14 PM CDT Result Rosie Vega MD LAB POCT ORDERABLES - DEVIC E Final Result Performing Organization Address [facility] Co de Phone Number [facility] Department of [place] [address] * (ABNORMAL) POCT glucose (01/10/2025 11:22 AM CDT) Glucose, POC 334(H) 70 - 199 mg/dL Blood 01/10/2025 11:2 2 AM CDT 01/10/2025 11:22 AM CDT us Bita Vega MD LAB POCT ORDERABLES - DEVIC E Final Result Performing Organization Address City/[facility] Co de Phone Number [facility] Department of [place] [address] * (ABNORMAL) POCT glucose (01/10/2025 10:34 AM CDT) Glucose, POC 377(H) 70 - 199 mg/dL Blood 01/10/2025 10:3 4 AM CDT 01/10/2025 10:34 AM CDT Result Rosie Vega MD LAB POCT ORDERABLES - DEVIC E Final Result [facility] Department of [place] [address] * POCT hCG, urine (01/10/2025 9:30 AM CDT) Pathologist [facility] HCG, ur, POC Negative Negative Lot Number [id number] QC Backgroud Clear Acceptable QC Control Line Acceptable Urine 01/10/2025 9:30 AM CDT us Carla Neri MD POINT OF CARE TEST ORDERA BLES Final Result * (ABNORMAL) POCT HP-F-CKW-GLU-HCT, WB - ISTAT (01/10/2025 9:28 AM CDT) [facility] Na POC 132(L) 135 - 145 mmol/L K POC 4.4 3.3 - 4.9 mmol/L [facility] Comment: Interpretive Data This method is not able to assess for hemolysis, which may falsely increase potassium concentrations. If further testing is needed to evaluate this result, consider in-laboratory plasma potassium. Current Interpretive Data was last revised on 2022. 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 73 m2 [facility] Comment: Interpretive Data Reference Interval [...] last reviewed 2021. 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 09/23/2023 8:31 PM 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 us Tyrel Simmons MD LAB BLOOD ORDERABLES Final Result Performing Organization Address City/[facility]/ZIP Co de Phone Number [facility] [address] Department of [place] [address] * (ABNORMAL) Albumin Creatinine Ratio, Urine (04/17/2023 [...] LAB URINE ORDERABLES Final Re sult [facility] [address] [facility] Department [place] [address] * (ABNORMAL) Lipid panel (04/17/2023 1:03 PM [...] LAB BLOOD ORDERABLES Final Re sult [facility] [address] [facility] Department [place] [address] * (ABNORMAL) Hemoglobin A1c (04/16/2023 7:06 AM CDT) Hgb A1C 6.5(H) 4.0 - 5.6 % [facility] Estimated Average Glucose 140 mg/dL [facility] Comment: The ADA recommends reporting an estimated Average Glucose (eAG) with all Hemoglobin A1c results using the equation derived from a study of 507 normal and diabetic adults. Minority populations were underrepresented and children were not included. (Diabetes Care 31:7618-6099, 2008). The eAG is not equivalent to a fasting glucose. Blood 04/16/2023 7:06 AM CDT 04/16/2023 7:45 AM CDT us Amilcar Estrada MD LAB BLOOD ORDERABLES Final Re sult [facility] [address] [facility] Department [place] [address] from Last 3 Months or Most Recently Relevant to Health Maintenance Insurance [facility] OTHER Address: [address] [address] [facility] MEDICARE Advance Directives For more information, please contact: [phone] Documents on File Type Date Recorded Patient Pullboat Engineer Expl anation ADVANCE DIRECTIVE 04/23/2023 12:11 PM Breana r of Supplier Quality-Medical ADVANCE DIRECTIVE 04/23/2023 12:11 PM POLS T [...] Communication Kianna Nunez Sister Health Care Agent [email or web address] Suellen Martín Mother First Alternate Health Care Agent [email or web address] Care Teams Student Life Dean Relationship Specialty Start Date End Date Cherise Patrick PA [address] [place] [address] PCP - General Physician Incising Machine Operator 02/20/23
--- OUTSIDE RECORDS SUMMARY | 2025-03-28 02:31 | XMS_ITS | Patient Health Record ---
Author Organization On license of [facility] Address [address] [place] [address] Care Team Providers Care Turbine Attendant Name Role Phone Yessi Shannon Primary Care Provider Reason For Referral No Information Social History Sex Assigned At : Social History Observation Description Sex Assigned At Female Encounters Encounter Location Date Provider Diagnosis [address] [place] [address] 01/26/2025 Yessi Shannon Plan Of Treatment No Information Insurance Providers Payer Name Payer Address Payer Phone Subscriber Number Group Number Insured Name Patient Relationship to Insured Coverage Start Date Coverage End Date [place] [address] [place] [address] [id number] Gay Canales Self - patient is the insured 5 [employer] [address] [place] [address] [id number] Gay Canales Self - patient is the insured 5
--- OUTSIDE RECORDS SUMMARY | 2025-03-28 02:32 | XMS_ITS ---
Author Organization [facility] Address [address] [place] [address] Care Team Providers Care Dictating Machine Typist Name Role Phone Yessi Shannon Primary Care Provider REASON FOR VISIT New Patient Psych Eval, follow up hospital per CI Social History Sex Assigned At : Social History Observation Description Sex Assigned At Female Encounters Encounter Location Date Provider Diagnosis [address] [place] [address] 01/26/2025 Yessi Shannon Plan Of Treatment No Information Progress Notes * Gay MATADOB:1990 (34 yo F)Acc No.[id number]:01/26/2025 UNLOCKED PROGRESS NOTE Patient: Gay FARRIS Provider: OZ Caldwell, WELDING MACHINE OPERATOR GAS METAL ARC, CUTLERY GRINDER-C :1990 A ge:34 Y S ex:Female Date:01/26/2025 Address[address] [phone] Subjective: * Chief Complaints: * 1 . New Patient Psych Eval, follow up hospital per CI. * Medical History: Objective: * Vitals: Assessment: Plan: * Treatment: * * Electronic signature of Jeremías Shannon , [id number] on 03/28/2025 at 02:31 AM CDT Sign off status: Pending * Provider: OZ Caldwell, WELDING MACHINE OPERATOR GAS METAL ARC, CUTLERY GRINDER-C Date: 0 01/26/2025 Generated for Roldan knight/Teresa/Rodgersmitting on: 0 03/28/2025 02:31 AM CDT
[2025-03-28 03:34] LABS: Glucose Point of Care > 500 mg/dl (65-105)
--- NOTE | 2025-03-28 04:41 | PC.NURSE ---
This RN tried to get an IV on pt. pt states you only get one more time. senior security engineer made aware. pt states they usually get me with an ultrasound IV
--- OUTSIDE RECORDS SUMMARY | 2025-03-28 05:52 | XMS_ITS | Encounter Summary ---
Author Organization [facility] Address [address] [place] [address] Care Team Providers Care Post Splitter Name Role Phone Cherise Patrick PA-C Primary Care Provider Reason for Visit * Reason Onset Date Comments Hospital Admission 04/24/2023 Encounter Details Date Type Department Care Team (Late st Contact Info) Description 04/24/2023 Telephone [facility] STANDARD [address] [place] [address] Sameer Navarro MD [facility] [phone] Hospital Admission Social History Tobacco [...] and heating? Not hard at all 04/28/2023 [facility] [place] [facility] Occup[facility] ional [facility] - Occupational Stress [...] in a senior care (including now)? 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 Patient needs on arrival to [facility]: Medicine admissions resident (ask wood dowel machine operator for Medicine Admission) to be notified of arrival. Consultation to (N/A if blank): Vascular/general surgery I have accepted this patient for transfer to [facility]. If patient awaiting bed for >24hours, [...] documented as of this encounter Care Teams Post Splitter Relationship Specialty Start Date End Date Cherise Patrick PA-C [address] [place] [phone] PCP - General 02/23/24 documented as of this encounter
--- OUTSIDE RECORDS SUMMARY | 2025-03-28 05:53 | XMS_ITS | Clinical Summary ---
Author Organization [facility] [employer] Address [address] [place] [address] Care Team Providers Care Quality Control Inspector Heading Name Role Phone Cherise Patrick PA-C Primary Care Provider Source Comments [facility] [employer],non-owned Affiliates and Associated Physician Practices is amultiple site organization consisting of ambulatory clinics and hospital sitesin [place], [place], [place] and [place]. This disclosure is being madepursuant to the Care Everywhere program and may not contain all information available regarding this patient. Last updated 18.[employer] Allergies No known active allergies Medications * [...] Reported on 08/27/2024 Blood Glucose Monitoring Suppl (Singular Verio Reflect) w/Device KITIndications: CALL AUSTYN WHEN [...] - 03/18/2025 4:25 PM CDT Hospital Encounter [facility] [address] [place] [address] Artie Harmon MD [facility]iology Discharge Disposition: Home or Self Care 03/16/2025 Orders Only [facility] [address] [place] [address] Artie Harmon MD ESRD (end stage renal [...] in a long term (including now)? No 07/26/2024 Comments No Sex and Gender Information Value Date Recorded Sex Assigned at Not on file Legal Sex Female 6:46 AM MANAGER ENROLLMENT Gender Identity Not on file Sexual Orientation [...] this topic Medical Devices Implanted Type Area Executive Sales Assistant Device Identifier Shelf Expiration Date Model / Serial / Lot Kit Durathane Drflw Embosafe Chrnc Dlys Implanted:Qty: 1 on 02/25/2024 by Artie Harmon MD at [facility] Right: Chest [employer] 07/03/2026 [id number] / / [id number] Description:IMPLANTED BY DR. JUAN Gill Durathane Drflw Embosafe Chrnc Dlys Implanted:Qty: 1 on 08/06/2024 by Artie Harmon MD at [facility] Left: Chest Wall [employer] 07/03/2026 [id number] / / [id number] Description:Implanted in the left chest wall, via the [facility], by Dr. Candy Harmon. Kit Durathane Drflw Embosafe Chrnc Dlys Implanted:Qty: 1 on 03/18/2025 by Rio Monk MD at [facility] [employer] 12/03/2026 [id number] / / [id number] Procedures Procedure Name Priority Date/Time Associated Diagnosis [...] None. Contrast: None Complications: None immediate PROCEDURE: Recruitment Internship: Rio Monk Procedures performed: 1. Replacement of [...] evaluation, please review the evaluation forms in [facility]. For details on monitored clinical parameters during the intra-service sedation time, please review the procedure nurse documentation in [facility]. The patient tolerated procedure without difficulty. I was present for the entire procedure. > Interpreting Provider: Rio Monk MD on 03/20/2025 7:59 AM Procedure Note Rio Monk MD - 03/20/2025 PROCEDURE: IR CENTRAL LINE INSERT TUNNEL DATE/TIME OF EXAM: 03/18/2025 3:43 PM CLINICAL INFORMATION: None relevant/not provided if blank. Indication: N18.6: ESRD (end stage renal disease) ([facility]) Additional History: COMPARISON: None. FLUOROSCOPY DOSE: mGy Reference air kerma (ka,r). MEDICATIONS: None. Contrast: None Complications: None immediate PROCEDURE: Recruitment Internship: Rio Monk Procedures performed: 1. Replacement of [...] patient evaluation, please reviewthe evaluation forms in [facility]. For details on monitored clinical parameters during the intra-service sedation time, please review the procedurenurse documentation in [facility]. The patient tolerated procedure without difficulty. I was present for the entire procedure. > Interpreting Provider: Rio Monk MD on 03/20/2025 7:59 AM Doug-Candy Harmon MD IR ORDERABLES Final Result * (ABNORMAL) GLUCOSE - POINT OF CARE (03/18/2025 1:39 PM CDT) [facility] Glucose WB/POC 382(H) 70 - 99 mg/dL 03/21/2025 7:08 AM CDT [facility] Specimen Type Venous 03/21/2025 7:08 AM CDT [facility] Blood BLOOD SPECIMEN / Unknown 03/18/2025 1:39 PM CDT 03/21/2025 7:08 AM CDT Artie Harmon MD LAB - POINT OF CARE ORDERABLES F inal Result Performing Organization Address [facility]/ZIP Co de Phone Number [address] [address], [facility] [phone] * HCG BETA BLOOD QUANTITATIVE (03/18/2025 1:38 PM CDT) [facility] Beta-hCG Total Quantitative <3 mIU/mL 03/18/2025 2:38 PM CDT [facility] Comment: HCG Numeric Result Interpretation: [...] CHEMISTRY ORDERABLES Final Result Performing Organization Address [facility]/ZIP Co de Phone Number [address] [address], [place] [phone] * (ABNORMAL) HEMOGLOBIN A1C (08/28/2024 8:29 PM CDT) [facility] Hemoglobin A1c 7.4(H) <=5.6 % 08/29/2024 8:36 AM CDT [facility] Estimated Average Glucose 166 mg/dL 08/29/2024 8:36 AM CDT [facility] Comment: HbA1c Interpretation: Normal : < 5.7% Pre-diabetes: 5.7-6.4% Diabetes: Equal to or greater than 6.5% Test results diagnostic of diabetes should be repeated for confirmation. Treatment target values recommended by ADA and other clinical organizations should be used to evaluate metabolic control in patients. Reference: [place] Diabetes [employer], Standards of Care in Diabetes [...] ORDERABLES Fin al Result Performing Organization Address City/[facility]/ZIP Co de Phone Number [address] [address], [place] [phone] * HEPATITIS C AB SCREEN RFLX NAAT QUANT (05/31/2024 6:38 PM CDT) Hepatitis C Antibody Non-react talia Encisoreleah tipia 05/31/2024 7:33 PM CDT [facility] Comment:Hepatitis C Antibody screen indicates [...] ORDERAB LES Final Result Performing Organization Address City/[facility]/ZIP Co de Phone Number [address] [address], [place] [phone] * HIV-1 HIV-2 ANTIBODY + HIV P24 AG PANEL (02/24/2024 8:57 AM CDT) HIV Antigen/Antibod y 1 & 2 Non-reacti ve Non-react talia 02/24/2024 10:03 AM CDT [facility] Comment:No Laboratory eviden ce of HIV infection. Blood BLOOD SPECIMEN / Unknown Lab Venipuncture / Unknown 02/24/2024 8:57 AM CDT 02/24/2024 9:00 AM CDT us Rafa Patel MD LAB - CHEMISTRY ORDERABLES Final Result [facility] [address] [place] [address], [facility] [phone] from Last 3 Months or Most Recently [...] 2:41 AM 05/23/2023 7:59 PM Care Teams Quality Control Inspector Heading Relationship Specialty Start Date End Date Cherise Patrick PA-C [address] [place] [phone] PCP - General 02/23/24
--- OUTSIDE RECORDS SUMMARY | 2025-03-28 05:54 | XMS_ITS | Clinical Summary ---
Author Organization [facility] Address [address] [place] [address] Care Team Providers [employer] Hazmat Tanker Driver Name Role Phone Cherise Patrick Primary Care Provider [phone] Allergies No known active allergies Medications furosemide (LASIX) 40 mg tabletIndicati ons:hypertensi on Take 1 tablet (40 mg total) by mouth psychiatry physician before breakfast Active carvediloL (COREG) 12.5 mg tabletIndicati ons:hypertensi on Take 1 tablet (12.5 mg total) by mouth 2 (two) times a day with meals Active amLODIPine (NORVASC) 10 mg tabletIndicati ons:hypertensi on Take 1 tablet (10 mg total) by mouth psychiatry physician before breakfast Active dulaglutide (TRULICITY) 0.75 mg/0.5 [...] 1 tablet (20 mg total) by mouth psychiatry physician before breakfast Active gabapentin (NEURONTIN) 300 mg [...] eye. 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 [address] [phone] Luis Rodriguez MD Traction detachment of both retinas (Primary Dx); Neovascular glaucoma of right eye, severe stage 02/21/2025 11:00 AM CDT Office Visit [facility] [address] [place] [phone] Sumi Gupta MD Neovascular glaucoma of right eye, severe stage (Primary Dx) 02/18/2025 3:45 PM CDT Office Visit [facility] [address] [place] [phone] Bita Veag MD Pseudophakia, right eye (Primary Dx); Neovascular glaucoma of right eye, indeterminate stage; Traction detachment of both retinas 01/25/2025 9:15 AM CDT Office Visit [facility] [address], [address] [place] [phone] Bita Vega MD Pseudophakia, right eye (Primary Dx); Traction detachment of both retinas 01/12/[address] [facility] [address] [place] [phone] Nancie Hoyos MD 01/11/2025 9:15 AM CDT Office Visit [facility] [address], [address] [place] [phone] Bita Vega MD Pseudophakia, right eye (Primary Dx) 01/10/2025 11:39 AM CDT Anesthesia Event [facility] [address] [place] [address] Carla Neri MD Mallette, Allison Anne, NP 01/10/2025 10:30 AM CDT - 01/10/2025 11:15 AM CDT Surgery [facility] [address] [place] [address] Bita Vega MD COMPLEX EXTRACTION CATARACT - PHACOEMULSIFICATION AND LENS IMPLANT 01/10/2025 8:34 AM CDT - 01/10/2025 12:39 PM CDT Hospital Encounter [facility] [address] [place] [address] Bita Vega MD 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 [address] [place] [address] Outpatient Health [address] [place] [phone] Bita Vega MD 12/29/[address] [facility] Outpatient [address] [phone] Bita Vega MD Med Refill; Rx change [...] How often do you attend restorationist or sabianist serv ices? Never 04/16/2023 Do you belong [...] on file Legal Sex Female 8:53 PM COLOR WEIGHER Gender Identity Female 12/23/2024 9:35 AM COLOR WEIGHER Sexual Orientation Straight 12/23/2024 9: 35 AM COLOR WEIGHER Obstetrics History Last Filed Vital Signs Vital [...] 170.2 cm (5' 7) 12/23/2024 9:15 AM COLOR WEIGHER Body Mass Index 38.84 12/23/2024 9:15 AM COLOR WEIGHER Plan of Treatment Health Maintenance Due Date [...] 04/25/2008, 08/13/2007 Medical Devices Implanted Type Area Consumer Loan Processor Device Identifier Shelf Expiration Date Model / Serial / Lot [employer] Lens Iol [id number] [employer] Cca0t0.225 - [id number] - [id number] Implanted:Qty: 1 on 01/10/2025 by Bita Vega MD at [facility] Lens Right: Eye [employer] 06/14/2026 [id number] / [id number] Procedures Procedure Name Priority Date/Time Associated Diagnosis Comments B-SCAN ULTRASOUND 76141 - OD - RIGHT EYE Routine 02/24/2025 [...] URINE Routine 01/10/2025 9:30 AM CDT POCT DT-[id number]-GLU-HCT,WB - ISTAT Routine 01/10/2025 9:28 AM CDT EGFR Routine 09/23/2023 5:39 PM COLOR WEIGHER ALBUMIN CREATININE RATIO, URINE Routine 04/17/2023 4:23 PM CDT LIPID PANEL Routine 04/17/2023 1:03 PM CDT HEMOGLOBIN A1C Routine 04/16/2023 7:06 AM CDT from Last 3 Months or Most Recently Relevant to Health Maintenance Results * B-SCAN ULTRASOUND 26882 - OD - RIGHT EYE (02/24/2025 12:45 [...] Iop 55--> 22 Result Rosie Vega MD [facility] PROCEDURES Fin al Result * (ABNORMAL) POCT glucose (01/10/2025 12:14 PM CDT) Glucose, POC 249(H) 70 - 199 mg/dL Blood 01/10/2025 12:1 4 PM CDT 01/10/2025 12:14 PM CDT Result Rosie Vega MD LAB POCT ORDERABLES - DEVIC E Final Result Performing Organization Address [facility] Co de Phone Number [facility] Department [place] [address] * (ABNORMAL) POCT glucose (01/10/2025 11:22 AM CDT) Glucose, POC 334(H) 70 - 199 mg/dL Blood 01/10/2025 11:2 2 AM CDT 01/10/2025 11:22 AM CDT us Bita Vega MD LAB POCT ORDERABLES - DEVIC E Final Result Performing Organization Address City/[facility] Co de Phone Number [facility] Department [place] [address] * (ABNORMAL) POCT glucose (01/10/2025 10:34 AM CDT) Glucose, POC 377(H) 70 - 199 mg/dL Blood 01/10/2025 10:3 4 AM CDT 01/10/2025 10:34 AM CDT Result Rosie Vega MD LAB POCT ORDERABLES - DEVIC E Final Result [facility] [address] [facility] Department [place] [address] * POCT hCG, urine (01/10/2025 9:30 AM CDT) Pathologist [facility] HCG, ur, POC Negative Negative Lot Number [id number] QC Backgroud Clear Acceptable QC Control Line Acceptable Urine 01/10/2025 9:30 AM CDT us Carla Neri MD POINT OF CARE TEST ORDERA BLES Final Result * (ABNORMAL) POCT [id number]-[id number]-HCT, WB - ISTAT (01/10/2025 9:28 AM CDT) [facility] Na POC 132(L) 135 - 145 mmol/L [...] DEVIC E Final Result Performing Organization Address City/[facility]/ZIP Co de Phone Number [facility] [address] [facility] Department [place] [address] * eGFR (09/23/2023 5:39 PM COLOR WEIGHER) [facility] eGFR 22 mL/min/1. 73 m2 [facility] Comment: Interpretive Data Reference Interval Normal >/= [...] last reviewed 2021. Blood 09/23/2023 5:39 PM COLOR WEIGHER 09/23/2023 8:31 PM COLOR WEIGHER us Tyrel Simmons MD LAB BLOOD ORDERABLES Final Result Performing Organization Address City/[facility]/ZIP Co de Phone Number [facility] [address] Department [place] [address] * (ABNORMAL) Albumin Creatinine Ratio, Urine (04/17/2023 [...] LAB URINE ORDERABLES Final Re sult [facility] [address] [facility] [place] [address] * (ABNORMAL) Lipid panel (04/17/2023 1:03 PM [...] LAB BLOOD ORDERABLES Final Re sult [facility] [address] [facility] [place] [address] * (ABNORMAL) Hemoglobin A1c (04/16/2023 7:06 AM CDT) Hgb A1C 6.5(H) 4.0 - 5.6 % [facility] Estimated Average Glucose 140 mg/dL [facility] Comment: The ADA recommends reporting an estimated Average Glucose (eAG) with all Hemoglobin A1c results using the equation derived from a study of 507 normal and diabetic adults. Minority populations were underrepresented and children were not included. (Diabetes Care 31:3370-6289, 2008). The eAG is not equivalent to a fasting glucose. Blood 04/16/2023 7:06 AM CDT 04/16/2023 7:45 AM CDT us Amilcar Estrada MD LAB BLOOD ORDERABLES Final Re sult [facility] [address] [facility] Department [place] [address] from Last 3 Months or Most Recently Relevant to Health Maintenance Insurance [facility] OTHER Address: [address] [address] [facility] MEDICARE Advance Directives For more information, please contact: [phone] Documents on File Type Date Recorded Patient Road Conductor Expl anation ADVANCE DIRECTIVE 04/23/2023 12:11 PM Breana r of Consulting Utility Forester-Medical ADVANCE DIRECTIVE 04/23/2023 12:11 PM POLS T [...] Communication Kianna Nunez Sister Health Care Agent [email or web address] Suellen Martín Mother First Alternate Health Care Agent [email or web address] Care Teams [employer] Hazmat Tanker Driver Relationship Specialty Start Date End Date Cherise Patrick PA [address] [place] [address] PCP - General Physician Mortician Investigator 02/20/23
--- OUTSIDE RECORDS SUMMARY | 2025-03-28 05:54 | XMS_ITS | Referral Summary ---
Author Organization [facility] Address [address] [place] [address] Care Team Providers Care Livestock Trader Name Role Phone Cherise Patrick Primary Care Provider [phone] Encounters Date Type Department Care Team Description 02/24/2025 11:10 AM CDT Office Visit [facility] Ophthalmology [address] [place] [phone] Luis Rodriguez MD Traction detachment of both retinas (Primary Dx); Neovascular glaucoma of right eye, severe stage 02/21/2025 11:00 AM CDT Office Visit [facility] Ophthalmology [address] [place] [address] [place] [phone] Sumi Gupta MD Neovascular glaucoma of right eye, severe stage (Primary Dx) 02/18/2025 3:45 PM CDT Office Visit [facility] Ophthalmology [address] [place] [phone] Bita Vega MD Pseudophakia, right eye (Primary Dx); Neovascular glaucoma of right eye, indeterminate stage; Traction detachment of both retinas 01/25/2025 9:15 AM CDT Office Visit [facility] Ophthalmology [address] [facility] [address], [address] [place] [address] Bita Vega MD Pseudophakia, right eye (Primary Dx); Traction detachment of both retinas 01/12/2025 Telephone [facility] Ophthalmology [address] [phone] Nancie Hoyos MD 01/11/2025 9:15 AM CDT Office Visit [facility] Ophthalmology [address] [facility] [address] [facility], [address] [place] [address] Bita Vega MD Pseudophakia, right eye (Primary Dx) 01/10/2025 10:30 AM CDT - 01/10/2025 11:[address] [facility] Operating [facility] [address] [place] [address] Bita Vega MD COMPLEX EXTRACTION CATARACT - PHACOEMULSIFICATION AND LENS IMPLANT 01/10/2025 11:39 AM CDT Anesthesia Event [facility] ([facility]) [address] [place] [address] Carla Neri MD Mallette, Allison Anne, NP 01/10/2025 8:34 AM CDT - 01/10/2025 12:39 PM CDT Hospital Encounter 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) Discharge Disposition: Discharge to home or self care 01/06/2025 Telephone [facility] Ophthalmology [facility] [address] [phone] Bita Vega MD 12/29/2024 Telephone [facility] Ophthalmology [address] [place] [phone] Bita Vega MD Med Refill; Rx change from Last 3 Months Allergies No known active allergies Medications furosemide (LASIX) 40 mg tabletIndicati ons:hypertensi on Take 1 tablet (40 mg total) by mouth tennis player before breakfast Active carvediloL (COREG) 12.5 mg tabletIndicati ons:hypertensi on Take 1 tablet (12.5 mg total) by mouth 2 (two) times a day with meals Active amLODIPine (NORVASC) 10 mg tabletIndicati ons:hypertensi on Take 1 tablet (10 mg total) by mouth tennis player before breakfast Active dulaglutide (TRULICITY) 0.75 mg/0.5 [...] 1 tablet (20 mg total) by mouth tennis player before breakfast Active gabapentin (NEURONTIN) 300 mg [...] eye. Assessment & Plan (11/01/2024 2:13 PM RELOCATION ASSOCIATE): With severe tractional retinal detachments in both [...] How often do you attend amish or quaker serv ices? Never 04/16/2023 Do [...] slept in a alf (including now)? No 04/16/2023 Housing Stability Vital [...] on file Legal Sex Female 8:53 PM RELOCATION ASSOCIATE Gender Identity Female 12/23/2024 9:35 AM RELOCATION ASSOCIATE Sexual Orientation Straight 12/23/2024 9: 35 AM RELOCATION ASSOCIATE Last Filed Vital Signs Vital Sign Reading [...] 170.2 cm (5' 7) 12/23/2024 9:15 AM RELOCATION ASSOCIATE Body Mass Index 38.84 12/23/2024 9:15 AM RELOCATION ASSOCIATE Plan of Treatment Not on file Medical Devices Implanted Type Area Director Of Field Coordination Device Identifier Shelf Expiration Date Model / Serial / Lot [employer] Lens Iol [id number] [employer] [id number] - [id number] - [id number] Implanted:Qty: 1 on 01/10/2025 by Bita Vega MD at [facility] Lens Right: Eye [employer] 06/14/2026 CCA0T0.225 / [id number] Procedures Procedure Name Priority Date/Time Associated Diagnosis Comments B-SCAN ULTRASOUND 88787 - OD - RIGHT EYE Routine 02/24/2025 [...] URINE Routine 01/10/2025 9:30 AM CDT POCT [id number]-GLU-HCT,WB - ISTAT Routine 01/10/2025 9:28 AM CDT EGFR Routine 09/23/2023 5:39 PM RELOCATION ASSOCIATE ALBUMIN CREATININE RATIO, URINE Routine 04/17/2023 4:23 PM CDT LIPID PANEL Routine 04/17/2023 1:03 PM CDT HEMOGLOBIN A1C Routine 04/16/2023 7:06 AM CDT from Last 3 Months or Most Recently Relevant to Health Maintenance Results * B-SCAN ULTRASOUND 18918 - OD - RIGHT EYE (02/24/2025 12:45 [...] Iop 55--> 22 us Bita Vega MD [facility] PROCEDURES Fin al Result * (ABNORMAL) POCT glucose (01/10/2025 12:14 PM CDT) Glucose, POC 249(H) 70 - 199 mg/dL Blood 01/10/2025 12:1 4 PM CDT 01/10/2025 12:14 PM CDT Result [facility] Bita Vega MD LAB POCT ORDERABLES - DEVIC E Final Result Performing Organization Address City/[facility] Co de Phone Number [facility] [place] [address] * (ABNORMAL) POCT glucose (01/10/2025 11:22 AM CDT) Glucose, POC 334(H) 70 - 199 mg/dL Blood 01/10/2025 11:2 2 AM CDT 01/10/2025 11:22 AM CDT us Bita Vega MD LAB POCT ORDERABLES - DEVIC E Final Result Performing Organization Address City/[facility] Co de Phone Number [facility] [place] [address] * (ABNORMAL) POCT glucose (01/10/2025 10:34 AM CDT) Pathologist [facility] Glucose, POC 377(H) 70 - 199 mg/dL Blood 01/10/2025 10:3 4 AM CDT 01/10/2025 10:34 AM CDT Bita Vega MD LAB POCT ORDERABLES - DEVIC E Final Result Performing Organization Address City/[facility]/ZIP Co de Phone Number [facility] [place] [address] * POCT hCG, urine (01/10/2025 9:30 AM CDT) [facility] HCG, ur, POC Negative Negative Lot Number [id number] QC Backgroud Clear Acceptable QC Control Line Acceptable Urine 01/10/2025 9:30 AM CDT Carla Neri MD POINT OF CARE TEST ORDERA BLES Final Result * (ABNORMAL) POCT [id number]-HCT, WB - ISTAT (01/10/2025 9:28 AM CDT) [facility] Na POC 132(L) 135 - 145 mmol/L K POC 4.4 3.3 - 4.9 mmol/L [facility] Comment: Interpretive Data This method is not able to assess for hemolysis, which may falsely increase potassium concentrations. If further testing is needed to evaluate this result, consider in-laboratory plasma potassium. Current Interpretive Data was last revised on 2022. Glucose POC i-STAT 438(H) 70 - 199 mg/dL [facility] Hct, POC 39.0 35.6 - 45.5 % [facility] Blood 01/10/2025 9:28 AM CDT 01/10/2025 9:28 AM CDT Bita Vega MD LAB POCT ORDERABLES - DEVIC E Final Result Performing Organization Address [facility] Co de Phone Number [facility] [place] [address] * eGFR (09/23/2023 5:39 PM RELOCATION ASSOCIATE) eGFR 22 mL/min/1. 73 m2 [facility] [...] last reviewed 2021. Blood 09/23/2023 5:39 PM RELOCATION ASSOCIATE 09/23/2023 8:31 PM RELOCATION ASSOCIATE Tyrel Simmons MD LAB BLOOD ORDERABLES Final Result [facility] [id number] [facility] [place] [address] * (ABNORMAL) Albumin Creatinine Ratio, Urine (04/17/2023 [...] LAB URINE ORDERABLES Final Re sult [facility] [address] [facility] Department [place] [address] * (ABNORMAL) Lipid panel (04/17/2023 1:03 PM [...] BLOOD ORDERABLES Final Re sult [facility] [address] [facility] Department [place] [address] * (ABNORMAL) Hemoglobin A1c (04/16/2023 [...] and children were not included. (Diabetes Care 31:5500-5000, 2008). The eAG is not equivalent to a fasting glucose. Blood 04/16/2023 7:06 AM CDT 04/16/2023 7:45 AM CDT us Amilcar Estrada MD LAB BLOOD ORDERABLES Final Re sult AMANDAJONNIE [address] [facility] Department [place] [address] from Last 3 Months or Most Recently Relevant to Health Maintenance Insurance [facility] OTHER Address: [facility] [address] [place] [address] [facility] MEDICARE Advance Directives For more information, please contact: [phone] Documents on File Type Date Recorded Patient Engine Lathe Operator Expl anation ADVANCE DIRECTIVE 04/23/2023 12:11 PM Breana r of [employer] Machine Operator-Medical ADVANCE DIRECTIVE 04/23/2023 12:11 PM POLS [...] Relationship Healthcare Agent Relationship Communication Kianna Nunez [facility] Health Care Agent [email or web address] Suellen Resendiz Mother [facility] Health Care Agent [email or web address] Care Teams Livestock Trader Relationship Specialty Start Date End Date Cherise Patrick PA [address] [place] [address] PCP - General Physician Psych Sales Specialist 02/20/23
--- NOTE | 2025-03-28 06:00 | ED.NAVMDI ---
HPI - Nausea/Vomiting/Diarrhea General Chief complaint: Nausea/Vomiting/Diarrhea <Nicol Morrow MD - Last Filed: 03/28/25 08:46> Stated complaint: vomiting, bodyaches <Nicol Morrow MD - Last Filed: 03/28/25 08:46> Time Seen by Provider: 03/28/25 05:38 <Nicol Morrow MD - Last Filed: 03/28/25 08:46> Source: patient <Nicol Morrow MD - Last Filed: 03/28/25 08:46> History of Present Illness HPI Narrative: Patient presents with report of nausea vomiting, diarrhea and myalgias of 2 days duration. She has a history of diabetes for which she is on a long-acting insulin, Lantus q.h.s. although she does not know how many units. She did not take Friday nights dose but she did on Friday night. She does not know if she has ever been in DKA or HHS but she does state that when she was 20 years old she was in a coma due to her diabetes. She has had decreased p.o. intake over the past few days as well as a headache that is frontal bilaterally with occasional radiation to her neck. She has not had increased thirst. She denies any dysuria, hematuria, urinary urgency or frequency. No sick contacts. No fevers or chills. She experiences a little abdominal pain vomiting but otherwise this is not present. She has had a dry cough. She denies any underlying respiratory conditions and does not smoke. She undergoes dialysis Wednesdays and Fridays and had a full run on Friday. She still makes urine. <Nicol Morrow MD - Last Filed: 03/28/25 08:46> Related Data Home medications: Home Medications ?Medication ?Instructions ?Recorded ?Confirmed ?Last Taken ?Type amlodipine 10 mg tablet 10 mg PO DAILY 08/04/23 03/28/25 03/27/25 History carvedilol 12.5 mg tablet 25 mg PO Q12H 08/04/23 03/28/25 03/27/25 History furosemide 40 mg tablet 40 mg PO DAILY 05/16/24 03/28/25 03/27/25 History apixaban 5 mg tablet (Eliquis) 5 mg PO BID 11/10/24 03/28/25 03/27/25 History <Nicol Morrow MD - Last Filed: 03/28/25 08:46> Allergies/Adverse reactions: Allergies Allergy/AdvReac Type Severity Reaction Status Date / Time ceftriaxone (From Rocephin) Allergy Severe Other Verified 03/28/25 17:42 hydrocodone Allergy Mild Hives Verified 03/28/25 17:42 oxycodone Allergy Mild Hives Verified 03/28/25 17:42 <Nicol Morrow MD - Last Filed: 03/28/25 08:46> [facility] Past Medical History Medical History: Medical History (Updated 03/28/25 @ 17:35 by Angeles Smith PA-C) 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 Septic arthritis of shoulder, left (05/2024) Diastolic heart failure secondary to hypertension EF 70% with grade 2 diastolic dysfunction echocardiogram August 2023 Anemia in chronic kidney disease End-stage renal disease on hemodialysis Hemodialysis initiated August 2023 Glaucoma Blind in both eyes (~03/2023) Occurred acutely March 2023 Diabetic neuropathy Hyperlipidemia Chronic heel ulcer Chronic heel ulcer on the left foot developed November 2022 with acute decompensation and subsequent above the knee amputation, now with a persistent right heel ulcer since the fall of 2022. 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 History of cataract extraction Status post insertion of dialysis catheter (08/2023) Right subclavian <Nicol Morrow MD - Last Filed: 03/28/25 08:46> Family History Family History: Family History Father Diabetes mellitus Hypertension Mother Hypertension Obesity Sibling Diabetes mellitus, Onset Age: 28 Sibling Unknown family medical history Does not see a doctor Diabetes mellitus <Nicol Morrow MD - Last Filed: 03/28/25 08:46> Social History Social History: Social History (Updated 03/28/25 @ 17:37 by Angeles Smith PA-C) Social History: Surrogate decision maker: sister Ruvalcaba ([phone]). Code status: Full code. Smoking status: Never smoker Additional smoking assessment comments: never smoked cigarettes Alcohol intake: never Drinks per week: 0 Substance use: former Substance use type: does not use Do You Feel Safe in your Home?: Yes Lack of Transportation: No Lack of Food: Never True Current Housing: I Have Housing Concerned About Future Housing: No Difficulty Paying Gas/Electric Bills: No Difficulty Paying for Meds: No Currently Unemployed: No Education: Grade School Difficulty w/ Childcare or Family Care: No Additional living arrangements comments: Lives with sister in [place]. 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 Spiritual care concerns: No <Nicol Morrow MD - Last Filed: 03/28/25 08:46> Exam Narrative: GENERAL: well-nourished, and in no acute distress. HEAD: Normocephalic, atraumatic. EYES: Wearing sunglasses ENT: Nares clear, no rhinorrhea or epistaxis. Gross auditory acuity intact. NECK: Supple. No meningismus. CHEST: Speaking in full sentences. No respiratory distress. Lungs clear to auscultation bilaterally without appreciable wheezes or crackles although limited due to Peace habitus HEART: Tachycardic rate and rhythm. . ABDOMEN: obese Soft, nondistended. No rigidity or guarding. Not peritoneal SKIN: Warm, dry, no rash. NEURO: No focal deficits. Alert and oriented. Answering questions. Following commands. Normal speech without aphasia or dysarthria. PSYCH: Normal mood and affect. <Nicol Morrow MD - Last Filed: 03/28/25 08:46> Course Reevaluation(s) Reevaluation #1: Patient was initially treated with 8 units of insulin and IV fluids. Patient's blood sugar was still greater than 500 so she was treated with a 2nd 8 units and patient's blood sugar did improved to 270. Patient's hemoglobin A1c was greater than 14. CT scan showed concern for cystitis. Patient repeatedly declined to be straight cath even though she had greater than 250 mL of urine in her bladder. Due to concern for he underlying urinary tract infection patient was treated with a dose of IV Rocephin. Patient had allergic reaction response to this and patient's blood pressures were is decreased. Patient was treated with IM epinephrine for concern for anaphylaxis. Patient was also treated Benadryl. Case was discussed with the hospitalist and ultimately patient was found to be stable out of for admission to the IMU. The hospitalist did discuss the case with the security control center operator. <Cayden Christianson MD - Last Filed: 03/28/25 17:43> Vital Signs Vital signs: Vital Signs Temperature 98.2 F 03/28/25 02:31 Pulse Rate 109 H 03/28/25 02:31 Respiratory Rate 20 03/28/25 02:31 Blood Pressure 128/64 03/28/25 02:31 Pulse Oximetry 94 03/28/25 02:31 Oxygen Delivery Room Air 03/28/25 02:31 Temperature 97.4 F L 03/28/25 16:00 Pulse Rate 84 03/28/25 16:00 Respiratory Rate 18 03/28/25 16:00 Blood Pressure 91/44 L 03/28/25 16:00 Pulse Oximetry 99 03/28/25 16:00 Oxygen Delivery Nasal Cannula 03/28/25 08:37 Oxygen Flow Rate 2 03/28/25 08:37 <Nicol Morrow MD - Last Filed: 03/28/25 08:46> Vital Signs Temperature 98.2 F 03/28/25 02:31 Pulse Rate 109 H 03/28/25 02:31 Respiratory Rate 20 03/28/25 02:31 Blood Pressure 128/64 03/28/25 02:31 Pulse Oximetry 94 03/28/25 02:31 Oxygen Delivery Room Air 03/28/25 02:31 Temperature 97.4 F L 03/28/25 16:00 Pulse Rate 84 03/28/25 16:00 Respiratory Rate 18 03/28/25 16:00 Blood Pressure 91/44 L 03/28/25 16:00 Pulse Oximetry 99 03/28/25 16:00 Oxygen Delivery Nasal Cannula 03/28/25 08:37 Oxygen Flow Rate 2 03/28/25 08:37 <Cayden Christianson MD - Last Filed: 03/28/25 17:43> MDM - Nausea/Vomiting/Diarrhea [facility] Narrative Medical decision making narrative: Patient presents with nausea vomiting, diarrhea and myalgias of 2 days duration. She has a history of diabetes but is only on a long-acting insulin regimen. She also has history of end-stage renal disease and undergoes dialysis on Wednesdays and Fridays. In the emergency department she is afebrile with vital signs notable for tachycardia. She has a marked leukocytosis and normocytic anemia. Beta hydroxybutyrate slightly elevated. Patient is very hyperglycemic. No anion gap and mild abnormality but not frankly acidotic. She has hypoalbuminemia; calcium corrects to normal given this. Elevated alkaline phosphatase. Pseudo hyponatremia as it corrects to 137/142 given hyperglycemia. Patient's kidney function consistent with her end-stage renal disease on dialysis. <Nicol Morrow MD - Last Filed: 03/28/25 08:46> Patient presents with nausea vomiting, diarrhea and myalgias of 2 days duration. She has a history of diabetes but is only on a long-acting insulin regimen. She also has history of end-stage renal disease and undergoes dialysis on Wednesdays and Fridays. In the emergency department she is afebrile with vital signs notable for tachycardia. She has a marked leukocytosis and normocytic anemia. Beta hydroxybutyrate slightly elevated. Patient is very hyperglycemic. No anion gap and mild abnormality but not frankly acidotic. She has hypoalbuminemia; calcium corrects to normal given this. Elevated alkaline phosphatase. Pseudo hyponatremia as it corrects to 137/142 given hyperglycemia. Patient's kidney function consistent with her end-stage renal disease on dialysis. <Cayden Christianson MD - Last Filed: 03/28/25 17:43> Differential Diagnosis Differential diagnosis: Likely food poisoning, gastroenteritis, drug-induced nausea and vomiting, dehydration and other (DKA/HHS/hyperglycemia; acute viral syndrome, UTI, pneumonia) <Nicol Morrow MD - Last Filed: 03/28/25 08:46> Lab Data Attestation: I reviewed the patient's lab results. <Nicol Morrow MD - Last Filed: 03/28/25 08:46> Result diagrams: 03/28/25 05:56 03/28/25 11:40 <Nicol Morrow MD - Last Filed: 03/28/25 08:46> Labs: Lab Results 03/28/25 03/28/25 03/28/25 Range/Units 03:32 05:56 06:19 WBC 21.3 H (4.5-10.0) K/mm3 RBC 3.45 L (4.2-5.4) M/mm3 Hgb 9.8 L (12.0-15.0) g/dL Hct 32.9 L (37.0-47.0) % MCV 95.4 (80-100) fl MCH 28.4 (26-34) pg MCHC 29.8 L (32-36) g/dl RDW 13.8 (11.5-14.5) % Plt Count 250 (150-375) k/mm3 MPV 10.2 (7.4-10.4) fl Immature Gran % (Auto) 0.8 H (0-0.5) % Neut % (Auto) 84.5 H (45.5-73.1) % Lymph % (Auto) 6.0 L (18.3-44.2) % [place] % (Auto) 8.5 (2.6-8.5) % Eos % (Auto) 0.0 (0-4.4) % Baso % (Auto) 0.2 (0.2-1.2) % Lymph # (Auto) 1.27 (0.9-3.2) K/mm3 [place] # (Auto) 1.8 H (0.1-0.6) K/mm3 Eos # (Auto) 0.0 (0-0.3) K/mm3 Baso # (Auto) 0.0 (0.0-0.1) K/mm3 Abs Immat Gran (auto) 0.17 H (0.00-0.031) K/mm3 Absolute Neuts (auto) 18.0 H (1.3-6.7) K/mm3 Absolute Nucleated RBC 0.040 H (0.0-0.012) K/mm3 Band Neutrophils % Not Reportable Nucleated RBC % 0.2 (0.0-0.2) % Platelet Estimate Adequate (Adequate) Polychromasia 1+ Hypochromasia 1+ Anisocytosis 1+ Schistocytes None seen Methemoglobin (0-1.5) %THb Sodium 127 L (137-145) mmol/L Potassium 4.6 (3.4-5.0) mmol/L Chloride 99 (98-107) mmol/L Carbon Dioxide 18 L (22-30) mmol/L Anion Gap 10 (4-12) mmol/L BUN 25 H (7-17) mg/dL Creatinine 5.87 H (0.7-1.0) mg/dL Estim Creat Clear Calc 15 ml/min Estimated GFR 8 L (59 - ) Glucose 706 H* (65-110) mg/dL POC Capillary Glucose > 500 H* (65-105) mg/dl Hemoglobin A1c (<5.7) % Lactic Acid (0.7-2.0) mmol/L Calcium 7.6 L (8.4-10.2) mg/dL Magnesium 1.8 (1.6-2.3) mg/dL Total Bilirubin 0.4 (0.2-1.3) mg/dL AST 13 L (14-36) U/L ALT 9 (6-35) U/L Alkaline Phosphatase 199 H (38-126) U/L C-Reactive Protein (<1.0) mg/dL Total Protein 6.0 L (6.3-8.2) g/dL Albumin 2.7 L (3.5-5.1) g/dL Beta-Hydroxybutyrate/Acetoacetate 0.96 H (0.02-0.27) mmol/L Procalcitonin ng/mL Serum HCG, Qual Negative Influenza A (RT-PCR) (Negative) Influenza B (RT-PCR) (Negative) RSV (RT-PCR) (Negative) SARS-CoV-2 RNA (RT-PCR) (Negative) Group A Strep (PCR) (Negative) 03/28/25 03/28/25 03/28/25 Range/Units 06:34 09:37 10:57 WBC (4.5-10.0) K/mm3 RBC (4.2-5.4) M/mm3 Hgb (12.0-15.0) g/dL Hct (37.0-47.0) % MCV (80-100) fl MCH (26-34) pg MCHC (32-36) g/dl RDW (11.5-14.5) % Plt Count (150-375) k/mm3 MPV (7.4-10.4) fl Immature Gran % (Auto) (0-0.5) % Neut % (Auto) (45.5-73.1) % Lymph % (Auto) (18.3-44.2) % [place] % (Auto) (2.6-8.5) % Eos % (Auto) (0-4.4) % Baso % (Auto) (0.2-1.2) % Lymph # (Auto) (0.9-3.2) K/mm3 [place] # (Auto) (0.1-0.6) K/mm3 Eos # (Auto) (0-0.3) K/mm3 Baso # (Auto) (0.0-0.1) K/mm3 Abs Immat Gran (auto) (0.00-0.031) K/mm3 Absolute Neuts (auto) (1.3-6.7) K/mm3 Absolute Nucleated RBC (0.0-0.012) K/mm3 Band Neutrophils % Nucleated RBC % (0.0-0.2) % Platelet Estimate (Adequate) Polychromasia Hypochromasia Anisocytosis Schistocytes Methemoglobin (0-1.5) %THb Sodium (137-145) mmol/L Potassium (3.4-5.0) mmol/L Chloride (98-107) mmol/L Carbon Dioxide (22-30) mmol/L Anion Gap (4-12) mmol/L BUN (7-17) mg/dL Creatinine (0.7-1.0) mg/dL Estim Creat Clear Calc ml/min Estimated GFR (59 - ) Glucose (65-110) mg/dL POC Capillary Glucose > 500 H* (65-105) mg/dl Hemoglobin A1c > 14.0 H (<5.7) % Lactic Acid (0.7-2.0) mmol/L Calcium (8.4-10.2) mg/dL Magnesium (1.6-2.3) mg/dL Total Bilirubin (0.2-1.3) mg/dL AST (14-36) U/L ALT (6-35) U/L Alkaline Phosphatase (38-126) U/L C-Reactive Protein (<1.0) mg/dL Total Protein (6.3-8.2) g/dL Albumin (3.5-5.1) g/dL Beta-Hydroxybutyrate/Acetoacetate (0.02-0.27) mmol/L Procalcitonin ng/mL Serum HCG, Qual Influenza A (RT-PCR) Negative (Negative) Influenza B (RT-PCR) Negative (Negative) RSV (RT-PCR) Negative (Negative) SARS-CoV-2 RNA (RT-PCR) Negative (Negative) Group A Strep (PCR) (Negative) 03/28/25 03/28/25 03/28/25 Range/Units 11:03 11:39 11:40 WBC (4.5-10.0) K/mm3 RBC (4.2-5.4) M/mm3 Hgb (12.0-15.0) g/dL Hct (37.0-47.0) % MCV (80-100) fl MCH (26-34) pg MCHC (32-36) g/dl RDW (11.5-14.5) % Plt Count (150-375) k/mm3 MPV (7.4-10.4) fl Immature Gran % (Auto) (0-0.5) % Neut % (Auto) (45.5-73.1) % Lymph % (Auto) (18.3-44.2) % [place] % (Auto) (2.6-8.5) % Eos % (Auto) (0-4.4) % Baso % (Auto) (0.2-1.2) % Lymph # (Auto) (0.9-3.2) K/mm3 [place] # (Auto) (0.1-0.6) K/mm3 Eos # (Auto) (0-0.3) K/mm3 Baso # (Auto) (0.0-0.1) K/mm3 Abs Immat Gran (auto) (0.00-0.031) K/mm3 Absolute Neuts (auto) (1.3-6.7) K/mm3 Absolute Nucleated RBC (0.0-0.012) K/mm3 Band Neutrophils % Nucleated RBC % (0.0-0.2) % Platelet Estimate (Adequate) Polychromasia Hypochromasia Anisocytosis Schistocytes Methemoglobin 0.2 (0-1.5) %THb Sodium 134 L (137-145) mmol/L Potassium 3.7 (3.4-5.0) mmol/L Chloride 107 (98-107) mmol/L Carbon Dioxide 16 L (22-30) mmol/L Anion Gap 11 (4-12) mmol/L BUN 25 H (7-17) mg/dL Creatinine 5.71 H (0.7-1.0) mg/dL Estim Creat Clear Calc 15 ml/min Estimated GFR 9 L (59 - ) Glucose 293 H (65-110) mg/dL POC Capillary Glucose 290 H (65-105) mg/dl Hemoglobin A1c (<5.7) % Lactic Acid (0.7-2.0) mmol/L Calcium 7.8 L (8.4-10.2) mg/dL Magnesium (1.6-2.3) mg/dL Total Bilirubin (0.2-1.3) mg/dL AST (14-36) U/L ALT (6-35) U/L Alkaline Phosphatase (38-126) U/L C-Reactive Protein (<1.0) mg/dL Total Protein (6.3-8.2) g/dL Albumin (3.5-5.1) g/dL Beta-Hydroxybutyrate/Acetoacetate (0.02-0.27) mmol/L Procalcitonin ng/mL Serum HCG, Qual Influenza A (RT-PCR) (Negative) Influenza B (RT-PCR) (Negative) RSV (RT-PCR) (Negative) SARS-CoV-2 RNA (RT-PCR) (Negative) Group A Strep (PCR) (Negative) 03/28/25 03/28/25 03/28/25 Range/Units 13:48 14:13 14:34 WBC (4.5-10.0) K/mm3 RBC (4.2-5.4) M/mm3 Hgb (12.0-15.0) g/dL Hct (37.0-47.0) % MCV (80-100) fl MCH (26-34) pg MCHC (32-36) g/dl RDW (11.5-14.5) % Plt Count (150-375) k/mm3 MPV (7.4-10.4) fl Immature Gran % (Auto) (0-0.5) % Neut % (Auto) (45.5-73.1) % Lymph % (Auto) (18.3-44.2) % [place] % (Auto) (2.6-8.5) % Eos % (Auto) (0-4.4) % Baso % (Auto) (0.2-1.2) % Lymph # (Auto) (0.9-3.2) K/mm3 [place] # (Auto) (0.1-0.6) K/mm3 Eos # (Auto) (0-0.3) K/mm3 Baso # (Auto) (0.0-0.1) K/mm3 Abs Immat Gran (auto) (0.00-0.031) K/mm3 Absolute Neuts (auto) (1.3-6.7) K/mm3 Absolute Nucleated RBC (0.0-0.012) K/mm3 Band Neutrophils % Nucleated RBC % (0.0-0.2) % Platelet Estimate (Adequate) Polychromasia Hypochromasia Anisocytosis Schistocytes Methemoglobin (0-1.5) %THb Sodium (137-145) mmol/L Potassium (3.4-5.0) mmol/L Chloride (98-107) mmol/L Carbon Dioxide (22-30) mmol/L Anion Gap (4-12) mmol/L BUN (7-17) mg/dL Creatinine (0.7-1.0) mg/dL Estim Creat Clear Calc ml/min Estimated GFR (59 - ) Glucose (65-110) mg/dL POC Capillary Glucose 206 H (65-105) mg/dl Hemoglobin A1c (<5.7) % Lactic Acid 1.4 (0.7-2.0) mmol/L Calcium (8.4-10.2) mg/dL Magnesium (1.6-2.3) mg/dL Total Bilirubin (0.2-1.3) mg/dL AST (14-36) U/L ALT (6-35) U/L Alkaline Phosphatase (38-126) U/L C-Reactive Protein 20.2 H (<1.0) mg/dL Total Protein (6.3-8.2) g/dL Albumin (3.5-5.1) g/dL Beta-Hydroxybutyrate/Acetoacetate (0.02-0.27) mmol/L Procalcitonin 23.5 ng/mL Serum HCG, Qual Influenza A (RT-PCR) (Negative) Influenza B (RT-PCR) (Negative) RSV (RT-PCR) (Negative) SARS-CoV-2 RNA (RT-PCR) (Negative) Group A Strep (PCR) Not detected (Negative) <Nicol Morrow MD - Last Filed: 03/28/25 08:46> Lab Results 03/28/25 03/28/25 03/28/25 Range/Units 03:32 05:56 06:19 WBC 21.3 H (4.5-10.0) K/mm3 RBC 3.45 L (4.2-5.4) M/mm3 Hgb 9.8 L (12.0-15.0) g/dL Hct 32.9 L (37.0-47.0) % MCV 95.4 (80-100) fl MCH 28.4 (26-34) pg MCHC 29.8 L (32-36) g/dl RDW 13.8 (11.5-14.5) % Plt Count 250 (150-375) k/mm3 MPV 10.2 (7.4-10.4) fl Immature Gran % (Auto) 0.8 H (0-0.5) % Neut % (Auto) 84.5 H (45.5-73.1) % Lymph % (Auto) 6.0 L (18.3-44.2) % [place] % (Auto) 8.5 (2.6-8.5) % Eos % (Auto) 0.0 (0-4.4) % Baso % (Auto) 0.2 (0.2-1.2) % Lymph # (Auto) 1.27 (0.9-3.2) K/mm3 [place] # (Auto) 1.8 H (0.1-0.6) K/mm3 Eos # (Auto) 0.0 (0-0.3) K/mm3 Baso # (Auto) 0.0 (0.0-0.1) K/mm3 Abs Immat Gran (auto) 0.17 H (0.00-0.031) K/mm3 Absolute Neuts (auto) 18.0 H (1.3-6.7) K/mm3 Absolute Nucleated RBC 0.040 H (0.0-0.012) K/mm3 Band Neutrophils % Not Reportable Nucleated RBC % 0.2 (0.0-0.2) % Platelet Estimate Adequate (Adequate) Polychromasia 1+ Hypochromasia 1+ Anisocytosis 1+ Schistocytes None seen Methemoglobin (0-1.5) %THb Sodium 127 L (137-145) mmol/L Potassium 4.6 (3.4-5.0) mmol/L Chloride 99 (98-107) mmol/L Carbon Dioxide 18 L (22-30) mmol/L Anion Gap 10 (4-12) mmol/L BUN 25 H (7-17) mg/dL Creatinine 5.87 H (0.7-1.0) mg/dL Estim Creat Clear Calc 15 ml/min Estimated GFR 8 L (59 - ) Glucose 706 H* (65-110) mg/dL POC Capillary Glucose > 500 H* (65-105) mg/dl Hemoglobin A1c (<5.7) % Lactic Acid (0.7-2.0) mmol/L Calcium 7.6 L (8.4-10.2) mg/dL Magnesium 1.8 (1.6-2.3) mg/dL Total Bilirubin 0.4 (0.2-1.3) mg/dL AST 13 L (14-36) U/L ALT 9 (6-35) U/L Alkaline Phosphatase 199 H (38-126) U/L C-Reactive Protein (<1.0) mg/dL Total Protein 6.0 L (6.3-8.2) g/dL Albumin 2.7 L (3.5-5.1) g/dL Beta-Hydroxybutyrate/Acetoacetate 0.96 H (0.02-0.27) mmol/L Procalcitonin ng/mL Serum HCG, Qual Negative Influenza A (RT-PCR) (Negative) Influenza B (RT-PCR) (Negative) RSV (RT-PCR) (Negative) SARS-CoV-2 RNA (RT-PCR) (Negative) Group A Strep (PCR) (Negative) 03/28/25 03/28/25 03/28/25 Range/Units 06:34 09:37 10:57 WBC (4.5-10.0) K/mm3 RBC (4.2-5.4) M/mm3 Hgb (12.0-15.0) g/dL Hct (37.0-47.0) % MCV (80-100) fl MCH (26-34) pg MCHC (32-36) g/dl RDW (11.5-14.5) % Plt Count (150-375) k/mm3 MPV (7.4-10.4) fl Immature Gran % (Auto) (0-0.5) % Neut % (Auto) (45.5-73.1) % Lymph % (Auto) (18.3-44.2) % [place] % (Auto) (2.6-8.5) % Eos % (Auto) (0-4.4) % Baso % (Auto) (0.2-1.2) % Lymph # (Auto) (0.9-3.2) K/mm3 [place] # (Auto) (0.1-0.6) K/mm3 Eos # (Auto) (0-0.3) K/mm3 Baso # (Auto) (0.0-0.1) K/mm3 Abs Immat Gran (auto) (0.00-0.031) K/mm3 Absolute Neuts (auto) (1.3-6.7) K/mm3 Absolute Nucleated RBC (0.0-0.012) K/mm3 Band Neutrophils % Nucleated RBC % (0.0-0.2) % Platelet Estimate (Adequate) Polychromasia Hypochromasia Anisocytosis Schistocytes Methemoglobin (0-1.5) %THb Sodium (137-145) mmol/L Potassium (3.4-5.0) mmol/L Chloride (98-107) mmol/L Carbon Dioxide (22-30) mmol/L Anion Gap (4-12) mmol/L BUN (7-17) mg/dL Creatinine (0.7-1.0) mg/dL Estim Creat Clear Calc ml/min Estimated GFR (59 - ) Glucose (65-110) mg/dL POC Capillary Glucose > 500 H* (65-105) mg/dl Hemoglobin A1c > 14.0 H (<5.7) % Lactic Acid (0.7-2.0) mmol/L Calcium (8.4-10.2) mg/dL Magnesium (1.6-2.3) mg/dL Total Bilirubin (0.2-1.3) mg/dL AST (14-36) U/L ALT (6-35) U/L Alkaline Phosphatase (38-126) U/L C-Reactive Protein (<1.0) mg/dL Total Protein (6.3-8.2) g/dL Albumin (3.5-5.1) g/dL Beta-Hydroxybutyrate/Acetoacetate (0.02-0.27) mmol/L Procalcitonin ng/mL Serum HCG, Qual Influenza A (RT-PCR) Negative (Negative) Influenza B (RT-PCR) Negative (Negative) RSV (RT-PCR) Negative (Negative) SARS-CoV-2 RNA (RT-PCR) Negative (Negative) Group A Strep (PCR) (Negative) 03/28/25 03/28/25 03/28/25 Range/Units 11:03 11:39 11:40 WBC (4.5-10.0) K/mm3 RBC (4.2-5.4) M/mm3 Hgb (12.0-15.0) g/dL Hct (37.0-47.0) % MCV (80-100) fl MCH (26-34) pg MCHC (32-36) g/dl RDW (11.5-14.5) % Plt Count (150-375) k/mm3 MPV (7.4-10.4) fl Immature Gran % (Auto) (0-0.5) % Neut % (Auto) (45.5-73.1) % Lymph % (Auto) (18.3-44.2) % [place] % (Auto) (2.6-8.5) % Eos % (Auto) (0-4.4) % Baso % (Auto) (0.2-1.2) % Lymph # (Auto) (0.9-3.2) K/mm3 [place] # (Auto) (0.1-0.6) K/mm3 Eos # (Auto) (0-0.3) K/mm3 Baso # (Auto) (0.0-0.1) K/mm3 Abs Immat Gran (auto) (0.00-0.031) K/mm3 Absolute Neuts (auto) (1.3-6.7) K/mm3 Absolute Nucleated RBC (0.0-0.012) K/mm3 Band Neutrophils % Nucleated RBC % (0.0-0.2) % Platelet Estimate (Adequate) Polychromasia Hypochromasia Anisocytosis Schistocytes Methemoglobin 0.2 (0-1.5) %THb Sodium 134 L (137-145) mmol/L Potassium 3.7 (3.4-5.0) mmol/L Chloride 107 (98-107) mmol/L Carbon Dioxide 16 L (22-30) mmol/L Anion Gap 11 (4-12) mmol/L BUN 25 H (7-17) mg/dL Creatinine 5.71 H (0.7-1.0) mg/dL Estim Creat Clear Calc 15 ml/min Estimated GFR 9 L (59 - ) Glucose 293 H (65-110) mg/dL POC Capillary Glucose 290 H (65-105) mg/dl Hemoglobin A1c (<5.7) % Lactic Acid (0.7-2.0) mmol/L Calcium 7.8 L (8.4-10.2) mg/dL Magnesium (1.6-2.3) mg/dL Total Bilirubin (0.2-1.3) mg/dL AST (14-36) U/L ALT (6-35) U/L Alkaline Phosphatase (38-126) U/L C-Reactive Protein (<1.0) mg/dL Total Protein (6.3-8.2) g/dL Albumin (3.5-5.1) g/dL Beta-Hydroxybutyrate/Acetoacetate (0.02-0.27) mmol/L Procalcitonin ng/mL Serum HCG, Qual Influenza A (RT-PCR) (Negative) Influenza B (RT-PCR) (Negative) RSV (RT-PCR) (Negative) SARS-CoV-2 RNA (RT-PCR) (Negative) Group A Strep (PCR) (Negative) 03/28/25 03/28/25 03/28/25 Range/Units 13:48 14:13 14:34 WBC (4.5-10.0) K/mm3 RBC (4.2-5.4) M/mm3 Hgb (12.0-15.0) g/dL Hct (37.0-47.0) % MCV (80-100) fl MCH (26-34) pg MCHC (32-36) g/dl RDW (11.5-14.5) % Plt Count (150-375) k/mm3 MPV (7.4-10.4) fl Immature Gran % (Auto) (0-0.5) % Neut % (Auto) (45.5-73.1) % Lymph % (Auto) (18.3-44.2) % [place] % (Auto) (2.6-8.5) % Eos % (Auto) (0-4.4) % Baso % (Auto) (0.2-1.2) % Lymph # (Auto) (0.9-3.2) K/mm3 [place] # (Auto) (0.1-0.6) K/mm3 Eos # (Auto) (0-0.3) K/mm3 Baso # (Auto) (0.0-0.1) K/mm3 Abs Immat Gran (auto) (0.00-0.031) K/mm3 Absolute Neuts (auto) (1.3-6.7) K/mm3 Absolute Nucleated RBC (0.0-0.012) K/mm3 Band Neutrophils % Nucleated RBC % (0.0-0.2) % Platelet Estimate (Adequate) Polychromasia Hypochromasia Anisocytosis Schistocytes Methemoglobin (0-1.5) %THb Sodium (137-145) mmol/L Potassium (3.4-5.0) mmol/L Chloride (98-107) mmol/L Carbon Dioxide (22-30) mmol/L Anion Gap (4-12) mmol/L BUN (7-17) mg/dL Creatinine (0.7-1.0) mg/dL Estim Creat Clear Calc ml/min Estimated GFR (59 - ) Glucose (65-110) mg/dL POC Capillary Glucose 206 H (65-105) mg/dl Hemoglobin A1c (<5.7) % Lactic Acid 1.4 (0.7-2.0) mmol/L Calcium (8.4-10.2) mg/dL Magnesium (1.6-2.3) mg/dL Total Bilirubin (0.2-1.3) mg/dL AST (14-36) U/L ALT (6-35) U/L Alkaline Phosphatase (38-126) U/L C-Reactive Protein 20.2 H (<1.0) mg/dL Total Protein (6.3-8.2) g/dL Albumin (3.5-5.1) g/dL Beta-Hydroxybutyrate/Acetoacetate (0.02-0.27) mmol/L Procalcitonin 23.5 ng/mL Serum HCG, Qual Influenza A (RT-PCR) (Negative) Influenza B (RT-PCR) (Negative) RSV (RT-PCR) (Negative) SARS-CoV-2 RNA (RT-PCR) (Negative) Group A Strep (PCR) Not detected (Negative) <Cayden Christianson MD - Last Filed: 03/28/25 17:43> ABG Data ABG results: 03/28/25 11:03 Puncture Site Right radial ABG pH 7.304 L ABG pCO2 32.8 L ABG pO2 67.5 L ABG PO2/FiO2 Ratio 2.41 ABG HCO3 15.9 L ABG O2 Saturation 92.0 L ABG O2 Content 13.9 L ABG Base Excess -9.4 A-a Gradient 93.4 Oxyhemoglobin 92.2 Carboxyhemoglobin 0.4 Reduced Hemoglobin 7.2 H Total Hemoglobin 10.7 L O2 Delivery Device Nasal cannula O2 Liters/Min 2.0 FiO2 28 <Nicol Morrow MD - Last Filed: 03/28/25 08:46> 03/28/25 11:03 Puncture Site Right radial ABG pH 7.304 L ABG pCO2 32.8 L ABG pO2 67.5 L ABG PO2/FiO2 Ratio 2.41 ABG HCO3 15.9 L ABG O2 Saturation 92.0 L ABG O2 Content 13.9 L ABG Base Excess -9.4 A-a Gradient 93.4 Oxyhemoglobin 92.2 Carboxyhemoglobin 0.4 Reduced Hemoglobin 7.2 H Total Hemoglobin 10.7 L O2 Delivery Device Nasal cannula O2 Liters/Min 2.0 FiO2 28 <Cayden Christianson MD - Last Filed: 03/28/25 17:43> ECG Data EKG #1: Attestation: I personally reviewed and interpreted this ECG as follows: <Nicol Morrow MD - Last Filed: 03/28/25 08:46> ECG completion date: 03/28/25 <Nicol Morrow MD - Last Filed: 03/28/25 08:46> ECG completion time: 07:43 <Nicol Morrow MD - Last Filed: 03/28/25 08:46> Interpretation: Normal sinus rhythm at a rate of 95 beats per minute. OH interval 167. QRS 86. QT/QTC 353/405. T-wave inversion in 3 but otherwise upright in normal in contiguous inferior leads 2 and AVF. T-wave inversion in V3 is likely due to lead placement. No other T-wave inversions <Nicol Morrow MD - Last Filed: 03/28/25 08:46> Discharge Plan Discharge Clinical Impression: Leukocytosis, Normocytic anemia, Hyperglycemia due to diabetes mellitus, Hypoalbuminemia, Alkaline phosphatase raised, ESRD (end stage renal disease) on dialysis, Diabetes mellitus <Nicol Morrow MD - Last Filed: 03/28/25 08:46> Patient Disposition: Still a Patient <Nicol Morrow MD - Last Filed: 03/28/25 08:46> Condition: Stable <Nicol Morrow MD - Last Filed: 03/28/25 08:46>
[2025-03-28 06:04] LABS: Basophils Percent Auto 0.2 % (0.2-1.2); Hematocrit 32.9 % (37.0-47.0); Hemoglobin 9.8 g/dL (12.0-15.0); Immature Granulocyte Absolute 0.17 K/mm3 (0.00-0.031); Immature Granulocyte Percent A 0.8 % (0-0.5); Lymphocytes Absolute Auto 1.27 K/mm3 (0.9-3.2); Mean Corpuscular HGB Conc 29.8 g/dl (32-36); Mean Corpuscular Hemoglobin 28.4 pg (26-34); Mean Corpuscular Volume 95.4 fl (80-100); Mean Platelet Volume 10.2 fl (7.4-10.4); Monocytes Absolute Auto 1.8 K/mm3 (0.1-0.6); Monocytes Percent Auto 8.5 % (2.6-8.5); Neutrophils Percent Auto 84.5 % (45.5-73.1); Nucleated Red Blood Cells Perc 0.2 % (0.0-0.2); Platelet Count Result 250 k/mm3 (150-375); Red Blood Count 3.45 M/mm3 (4.2-5.4); Red Cell Distribution Width 13.8 % (11.5-14.5); White Blood Count 21.3 K/mm3 (4.5-10.0)
[2025-03-28 06:38] LABS: Anisocytosis 1+; Hypochromasia 1+; Platelet Estimate Adequate (Adequate); Polychromasia 1+; Schistocytes None Seen
[2025-03-28 06:56] LABS: Beta-Hydroxybutyrate/Acetoace. 0.96 mmol/L (0.02-0.27)
[2025-03-28 07:09] LABS: Alanine Aminotransferase 9 U/L (6-35); Albumin Level 2.7 g/dL (3.5-5.1); Alkaline Phosphatase 199 U/L (38-126); Anion Gap 10 mmol/L (4-12); Aspartate Amino Transferase 13 U/L (14-36); Bilirubin,Total 0.4 mg/dL (0.2-1.3); Blood Urea Nitrogen 25 mg/dL (7-17); Calcium 7.6 mg/dL (8.4-10.2); Carbon Dioxide 18 mmol/L (22-30); Chloride 99 mmol/L (98-107); Estimated CRCL calculation 15 ml/min; Estimated Glomerular Filt Rate 8; Glucose 706 mg/dL (65-110); Magnesium 1.8 mg/dL (1.6-2.3); Potassium 4.6 mmol/L (3.4-5.0); Sodium 127 mmol/L (137-145)
[2025-03-28 07:16] LABS: Influenza A QL RT-PCR Negative (Negative); Influenza B QL RT-PCR Negative (Negative); RSV RNA, RT-PCR Negative (Negative); SARS-CoV-2 RNA PCR Negative (Negative)
--- NOTE | 2025-03-28 07:37 | ECG_ITS ---
Test Date: 2025-03-28 07:43:31 Measurements Intervals [place] Rate: 95 P: 63 [place]: 167 QRS: -18 QRSD: 86 T: 2 QT: 353 QTc: 444 Interpretive Statements SINUS RHYTHM POSSIBLE LEFT ATRIAL ENLARGEMENT [-0.1mV P WAVE IN V1/V2] NONSPECIFIC ST AND T-WAVE ABNORMALITY Compared to ECG 01/13/2025 20:46:00 NO SIGNIFICANT CHANGE Electronically Signed On 03-28-2025 15:02:22 CDT by Aureliano Guerra M.D.
--- NOTE | 2025-03-28 07:42 | PC.NURSE ---
pt attempted to provide urine sample but was unable to go
[2025-03-28] MEDS: SODIUM CHLORIDE 0.9% IV 1,000 ML 999 ML IV CONT ×2 (07:43→08:44)
--- NOTE | 2025-03-28 07:44 | PC.NURSE ---
pt refuses straight cath
--- NOTE | 2025-03-28 07:48 | PC.NURSE ---
pt c/o CP after getting up to go to the bathroom
[2025-03-28] MEDS: INSULIN ASPART (*BKC) 100 UNITS/ML 8 UNITS SUB-Q (08:44)
[2025-03-28] MEDS: ONDANSETRON INJ 4 MG/2 ML VIAL IV PUSH (08:45)
[2025-03-28] MEDS: MORPHINE SULFATE (*CRX) 4 MG/ML INJ IV PUSH (08:49)
[2025-03-28 08:58] LABS: Serum Qual hCG Negative
[2025-03-28 08:59] LABS: SPREG INTERNAL CONTROL Positive
--- NOTE | 2025-03-28 09:22 | PC.NURSE ---
pt taken to CT at this time
[2025-03-28] MEDS: LACTATED RINGERS 1,000 ML 999 ML IV CONT (09:42)
[2025-03-28 09:44] LABS: Glucose Point of Care > 500 mg/dl (65-105)
--- NOTE | 2025-03-28 10:18 | PC.NURSE ---
pt refusing to try to provide urine sample at this time
[2025-03-28] MEDS: INSULIN HUMAN REGULAR (*BKC) 100 UNITS/ML 8 UNITS IV PUSH (10:22)
[2025-03-28] MEDS: diphenhydrAMINE HCl INJ 50 MG/ML VIAL IV PUSH (10:58)
--- NOTE | 2025-03-28 10:58 | PC.NURSE ---
approximatly 7 mins into Rocephin infusion pt sits up and states I dont feel good and starts itching all over. MD notified. 50mg benadryl ordered
[2025-03-28 11:09] LABS: Alveolar/Arterial O2 Gradient 93.4 mmHg; Base Excess ABG -9.4 mEq/l (+/-2.0); Carboxyhemoglobin 0.4 % THb (0-2.0); Fractional Inspired Oxygen 28 %; HCO3 ABG 15.9 mEq/l (22.0-26.0); Methemoglobin ABG 0.2 %THb (0-1.5); Oxygen Content ABG 13.9 %vol (16.0-22.0); Oxyhemoglobin 92.2 % THb (90.0-100.0); PCO2 ABG 32.8 mmHg (35.0-45.0); PO2 ABG 67.5 mmHg (80.0-100.0); PO2 FiO2 Ratio Arterial Blood 2.41 %; Reduced Hemoglobin 7.2 %THb (0-5.0); Total Hemoglobin 10.7 g/dL (12.0-18.0); pH ABG 7.304 (7.350-7.450)
[2025-03-28 11:10] LABS: Device NASAL CANNULA; Modified Allen's Test Pass; Site Drawn RIGHT RADIAL
[2025-03-28] MEDS: EPINEPHrine HCL INJ 1 MG/ML AMPUL 0.3 MG IM (11:10)
--- NOTE | 2025-03-28 11:17 | PC.NURSE ---
pt still unwilling to try to urinate. refusing straight cath
[2025-03-28 11:26] LABS: Hemoglobin A1C > 14.0 % (<5.7)
[2025-03-28 11:49] LABS: Glucose Point of Care 290 mg/dl (65-105)
--- NOTE | 2025-03-28 11:58 | PC.NURSE ---
pt attempting to give urine sample at this time
[2025-03-28 12:00] LABS: Anion Gap 11 mmol/L (4-12); Blood Urea Nitrogen 25 mg/dL (7-17); Calcium 7.8 mg/dL (8.4-10.2); Carbon Dioxide 16 mmol/L (22-30); Chloride 107 mmol/L (98-107); Estimated CRCL calculation 15 ml/min; Estimated Glomerular Filt Rate 9; Glucose 293 mg/dL (65-110); Potassium 3.7 mmol/L (3.4-5.0); Sodium 134 mmol/L (137-145)
--- NOTE | 2025-03-28 12:11 | PC.NURSE ---
Pt was unable to urinate. Still refusing straight cath. made aware
[2025-03-28 13:52] LABS: Glucose Point of Care 206 mg/dl (65-105)
[2025-03-28 14:44] LABS: Strep Group A RT-PCR NOT DETECTED (Negative)
[2025-03-28 14:57] LABS: Lactic Acid Reflex 1.4 mmol/L (0.7-2.0)
--- NOTE | 2025-03-28 15:10 | PC.NURSE ---
Bladder scanned pt again. shows 317mL. pt again refusing straight cath and states she does not feel the urge to urinate
[2025-03-28 15:14] LABS: CRP 20.2 mg/dL (<1.0); Procalcitonin 23.5 ng/mL
--- NOTE | 2025-03-28 15:25 | P.HP_ITS ---
H&P: HPI History of Present Illness Date/Time: 03/28/25 15:25 Chief Complaint: Nausea, vomiting, headache. Narrative: This is an unfortunate 34-year-old female with multiple medical conditions including historically poorly controlled insulin-dependent type 2 diabetes mellitus with a hemoglobin A1c today of greater than 14%, diabetic neuropathy, diabetic nephropathy, end-stage renal disease on hemodialysis, blindness secondary to glaucoma, hypertension, hyperlipidemia, diastolic congestive heart failure, suspected obstructive sleep apnea with positive ApneaLink, deep venous thrombosis on chronic 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, and multidrug resistant infections including MRSA, Klebsiella, escherichia coli, Enterococcus faecalis, and others who presented to the emergency via EMS from home with complaints of nausea, vo miting, and body aches. She has not felt well for several days with symptoms to include fatigue, generalized headache, body aches, nausea, vomiting, and loose stools which have resolved. Body aches intensified today and she came in for evaluation. She denies sick contacts, fever, sinus congestion, cough, abdominal pain, rash, and joint pain and swelling. She has a chronic wound on her right foot which is unchanged. In the ED: Vital signs on arrival include a temperature of 98.2?, blood pressure 120/64, pulse 109, respiratory 20, SpO2 94%. Labs were significant for WBC count of 21.3, hemoglobin 9.8, carbon dioxide 18, anion gap 10, BUN 25, creatinine 5.87, glucose 706, beta hydroxybutyrate 0.96, hemoglobin A1c > 14.0, CRP 20.2, procalcitonin 23.5, lactic acid 1.4. ABG showed a pH of 7.304, pCO2 32.8, PO2 67.5, HC03 15.9. She tested negative for influenza, RSV, COVID, and group A strep. CT of the chest, abdomen, and pelvis showed inflammatory change of the bilateral renal calices, right greater than left, for which pyelonephritis is suspected. She has not been able to produce a urine specimen and refuses catheterization. Findings within the chest suggestive of trace pulmonary edema with bilateral upper lobe distribution. Blood pressure did drop somewhat and she was given 3 L crystalloid bolus and IV insulin with improvement. She was started on ceftriaxone for suspected UTI though during infusion she clean planed of itchiness and felt as though her throat was swelling. Antibiotic was stopped and she was given diphenhydramine and epinephrine with improvement. She has since been started on aztreonam and vancomycin for broad-spectrum coverage for apparent sepsis without a definite source at this time. Review of Systems Review of Systems: 12 systems were reviewed and are negativ e except for as per HPI. [facility] Past Medical History Medical History (Updated 03/28/25 @ 17:45 by Angeles Smith PA-C) 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 Septic arthritis of shoulder, left (05/2024) Diastolic heart failure secondary to hypertension EF 70% with grade 2 diastolic dysfunction echocardiogram August 2023 Anemia in chronic kidney disease End-stage renal disease on hemodialysis Hemodialysis initiated August 2023 Glaucoma Blind in both eyes (~03/2023) Occurred acutely March 2023 Diabetic neuropathy Hyperlipidemia Chronic heel ulcer Chronic heel ulcer on the left foot developed November 2022 with acute decompensation and subsequent above the knee amputation, now with a persistent right heel ulcer since the fall of 2022. Hypertension Surgical History Surgical History (Updated 03/28/25 @ 17:35 by Angeles Smith PA-C) History of left above knee amputation Due to osteomyelitis. History of cataract extraction Status post insertion of dialysis catheter (08/2023) Right subclavian Family History Family History Father Diabetes mellitus Hypertension Mother Hypertension Obesity Sibling Diabetes mellitus, Onset Age: 28 Sibling Unknown family medical history Does not see a doctor Diabetes mellitus Social History Social History (Updated 03/28/25 @ 17:37 by Angeles Smith PA-C) Social History: Surrogate decision maker: Kianna Nunez, sister ([phone]). Code status: Full code. Smoking status: Never smoker Additional smoking assessment comments: never smoked cigarettes Alcohol intake: never Drinks per week: 0 Substance use: former Substance use type: does not use Do You Feel Safe in your Home?: Yes Lack of Transportation: No Lack of Food: Never True Current Housing: I Have Housing Concerned About Future Housing: No Difficulty Paying Gas/Electric Bills: No Difficulty Paying for Meds: No Currently Unemployed: No Education: Grade School Difficulty w/ Childcare or Family Care: No Additional living arrangements comments: Lives with sister in [place]. 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 Spiritual care concerns: No Meds Home Medications and Allergies Home Medications ?Medication ?Instructions ?Recorded ?Confirmed ?Type amlodipine 10 mg tablet 10 mg PO DAILY 08/04/23 03/28/25 History carvedilol 12.5 mg tablet 25 mg PO Q12H 08/04/23 03/28/25 History lisinopril 20 mg tablet 20 mg PO QAM 30 days #30 tabs 08/23/23 03/28/25 Rx furosemide 40 mg tablet 40 mg PO DAILY 05/16/24 03/28/25 History apixaban 5 mg tablet (Eliquis) 5 mg PO BID 11/10/24 03/28/25 History blood sugar diagnostic (OneTouch #1 pkg 01/24/25 03/28/25 Rx Verio test strips) blood-glucose meter (OneTouch #1 pkg 01/24/25 03/28/25 Rx Verio Flex Meter) insulin aspart U-100 100 unit/mL 1 sliding scale dose subcut 01/24/25 03/28/25 Rx (3 mL) subcutaneous pen USEASDIRECTD #15 mL insulin glargine 100 unit/mL (3 30 unit (0.3 mL) subcut QAM #15 mL 01/24/25 03/28/25 Rx mL) subcutaneous pen (Lantus Solostar U-100 Insulin) lancets 30 gauge (OneTouch Delica #1 pkg 01/24/25 03/28/25 Rx Plus Lancet) pen needle, diabetic 32 gauge x #1,200 ea 01/24/25 03/28/25 Rx / Allergies Allergy/AdvReac Type Severity Reaction Status Date / Time ceftriaxone (From Rocephin) Allergy Severe Other Verified 03/28/25 17:42 hydrocodone Allergy Mild Hives Verified 03/28/25 17:42 oxycodone Allergy Mild Hives Verified 03/28/25 17:42 Vital Signs Vital Signs - 24 hr 03/28/25 02:31 03/28/25 04:12 03/28/25 04:42 Temperature 98.2 F Pulse Rate 109 H 101 H 100 Respiratory Rate 20 18 18 Blood Pressure 128/64 102/51 L Pulse Oximetry 94 95 90 Oxygen Delivery Room Air Oxygen Flow Rate 03/28/25 07:44 03/28/25 07:47 03/28/25 08:15 Temperature Pulse Rate 96 95 94 Respiratory Rate 22 H 28 H 24 H Blood Pressure 95/57 L 95/57 L 106/49 L Pulse Oximetry 95 92 95 Oxygen Delivery Oxygen Flow Rate 03/28/25 08:37 03/28/25 08:46 03/28/25 09:15 Temperature Pulse Rate 91 89 Respiratory Rate 24 H 18 Blood Pressure 112/64 97/53 L Pulse Oximetry 97 99 100 Oxygen Delivery Nasal Cannula Oxygen Flow Rate 2 03/28/25 09:43 03/28/25 11:00 03/28/25 11:16 Temperature Pulse Rate 87 103 H 91 Respiratory Rate 21 H 32 H 21 H Blood Pressure 112/61 89/57 L 86/50 L Pulse Oximetry 98 95 95 Oxygen Delivery Oxygen Flow Rate 03/28/25 13:31 Temperature Pulse Rate 84 Respiratory Rate 17 Blood Pressure 96/60 L Pulse Oximetry 100 Oxygen Delivery Oxygen Flow Rate Exam Narrative: General: Chronically ill, nontoxic-appearing female supine in bed. Weight: 93.89 kg. BMI: 32.4. HEENT: Wearing dark glasses. Chronic scarring of the left cornea. Right pupil is sluggishly reactive. Eyes deviated in upward gaze. Tacky mucous membranes. Neck: Supple. Exam difficult due to neck circumference. No obvious thyromegaly or lymphadenopathy. Respiratory: Respirations are nonlabored and lungs are clear to auscultation bilaterally. Cardiovascular: Regular rate and rhythm with S1-S2. Chest: Dialysis catheter in the left upper chest without warmth, erythema, or exudate. Gastrointestinal: Abdomen is soft, obese, nontender, nondistended with positive bowel sounds. Equivocal CVA tenderness. Skin: Warm and dry. Irregularly-shaped chronic right heel wound without erythema, warmth, or discharge. Extremities: No cyanosis or clubbing. Status post left [id number] amputation. Radial pulse 2 +bilaterally, right pedal pulse 1 +. Musculoskeletal: No swelling, warmth, or erythema over the shoulders, elbows, wrist, right knee, or right ankle joints. Spine: No midline vertebral tenderness. She has some tenderness to palpation over the paraspinous muscles throughout. Neurological: Alert and oriented. Eyes deviate upward bilaterally. Speech is clear. No facial asymmetry. Pretty good strength, status post left [id number] amputation. Decrease in sensation in the hands and right foot related to neuropathy. Psychiatric: Pleasant and cooperative with appropriate mood and affect. H&P: Results Labs Labs: Short CBC 03/28/25 Range/Units 05:56 WBC 21.3 H (4.5-10.0) K/mm3 Hgb 9.8 L (12.0-15.0) g/dL Hct 32.9 L (37.0-47.0) % Plt Count 250 (150-375) k/mm3 BMP 03/28/25 03/28/25 06:19 11:40 Sodium 127 L 134 L Potassium 4.6 3.7 Chloride 99 107 Carbon Dioxide 18 L 16 L BUN 25 H 25 H Creatinine 5.87 H 5.71 H Glucose 706 H* 293 H Calcium 7.6 L 7.8 L Liver Function 03/28/25 Range/Units 06:19 Total Bilirubin 0.4 (0.2-1.3) mg/dL AST 13 L (14-36) U/L ALT 9 (6-35) U/L Alkaline Phosphatase 199 H (38-126) U/L Albumin 2.7 L (3.5-5.1) g/dL Imaging Chest/Abdomen/Pelvis CT 03/28/25 09:33 IMPRESSION: 1. Inflammatory change of the bilateral renal calyces, right greater than left for which pyelonephritis is suspected, and for which clinical correlation is ne eded. 2. Findings within the chest suggesting trace pulmonary edema with a bilateral upper lobe distribution. Foot X-Ray 03/28/25 14:09 IMPRESSION: 1. No acute osseous abnormality of the right foot. 2. Polyarticular osteoarthritic changes. 3. Laceration in the plantar aspect of the foot opposite the calcaneus. Assessment and Plan Assessment and plan (1) Sepsis: Code(s): A41.9 - Sepsis, unspecified organism Status: Acute (2) Pyelonephritis: Code(s): N12 - Tubulo-interstitial nephritis, not specified as acute or chronic Status: Acute (3) Hypotension: Code(s): I95.9 - Hypotension, unspecified Status: Acute (4) Uncontrolled insulin dependent diabetes mellitus: Status: Acute (5) End-stage renal disease on hemodialysis: Code(s): N18.6 - End stage renal disease; Z99.2 - Dependence on renal dialysis Status: Acute (6) Anemia in chronic kidney disease: Code(s): N18.9 - Chronic kidney disease, unspecified; D63.1 - Anemia in chronic kidney disease Status: Acute Plan The patient presented to the emergency department with complaints of nausea, vomiting, and body aches for couple of days as detailed in HPI. Labs, imaging, EKG, and all reports were personally reviewed. She has been afebrile since arrival. Blood pressures have been intermittently low but have stabilized after receiving 3 L. Hold further fluids as she has end-stage renal disease to avoid over-hydration. There concerns for sepsis with significant leukocytosis, elevated procalcitonin, and hypotension in the setting of suspected infection. CT scan shows evidence of pyelonephritis though she has yet to provide us with a urine specimen and she is refusing straight catheterization (she does still urinate). She had an allergic reaction to ceftriaxone in the emergency department and she has been started on aztreonam for Gram-negative coverage as well as vancomycin given her history of MRSA. Blood and urine cultures are pending. Her diabetes is poorly controlled with an A1c today of greater than 14%. She does get her insulin every day, administered by her sister, but the patient tells me that her blood sugars never checked. We discussed the importance of in her glucose under control as she has medical complications from her uncontrolled diabetes. Monitor insulin usage over the next couple of days and adjust basal insulin accordingly. Glucose has improved with IV fluids and IV insulin. No evidence of DKA at this time. Nephrology has been consulted for dialysis. Hold antihypertensives for now. The rest of her home medications will be reviewed and resumed as appropriate. Findings and treatment plan were discussed with the patient. Questions were solicited and answered to satisfaction. The patient's medical management will be taken over by the hospitalist team in a.m. Quality VTE Prophylaxis VTE prophylaxis: pharmacologic ordered (on apixaban) The patient has been admitted under observation status. Hospitalist MIPS Advance Care Plan I have confirmed that the patient's Advanced Care Plan is present, code status is documented, or surrogate decision maker is listed in patient medical record.: Yes Medication Reconciliation I have utilized all available resources to obtain, update and review the patients current medications (includes all prescriptions, OTC, herbals, cannabis, and nutritional supplements).: Yes
[2025-03-28] MEDS: AZTREONAM 1 GM/NS 50 ML 1 GM/50 ML BAG IVPB (15:29)
[2025-03-28] MEDS: VANCOMYCIN 2,000 MG/NS 500 ML BAG 250 MG IVPB (16:20)
--- NOTE | 2025-03-28 16:24 | PC.NURSE ---
Pt attempting to urinate at this time on bedside commode
--- NOTE | 2025-03-28 17:02 | PC.NURSE ---
Pt sat on commode for approx 20 mins with water facet running and still unable to urinate. Pt still refusing straight cath
--- NOTE | 2025-03-28 17:27 | ADMGEN ---
This patient, Gay Canales, was admitted to IMU Room 231-01 at 1715. Patient/family oriented to hospital policies and general routines including ID bracelet, bed and alarms, visiting hours, pain management, procedures, bathroom and other care routines, personal items, smoking policy, room service/diet, and visiting hours. Information on how to activate the Rapid Response Team has been discussed. Patient/Family are encouraged to report perceived risks to care and to ask questions if they do not understand what they are told or what they should do.
[2025-03-28 18:18] LABS: Fractional Inspired Oxygen 21 %; HCO3 VBG 14.8 mEq/l (24.0-30.0); PO2 VBG 63.9 mmHg (35.0-45.0); pH VBG 7.389 (7.300-7.400)
[2025-03-28 18:19] LABS: Device ROOM AIR
[2025-03-28 18:32] LABS: Anion Gap 9 mmol/L (4-12); Blood Urea Nitrogen 28 mg/dL (7-17); Calcium 7.7 mg/dL (8.4-10.2); Carbon Dioxide 14 mmol/L (22-30); Chloride 108 mmol/L (98-107); Estimated CRCL calculation 15 ml/min; Estimated Glomerular Filt Rate 9; Glucose 281 mg/dL (65-110); Magnesium 1.9 mg/dL (1.6-2.3); Potassium 4.7 mmol/L (3.4-5.0); Sodium 131 mmol/L (137-145)
[2025-03-28] MEDS: MORPHINE SULFATE (*CRX) 2 MG/ML INJ IV PUSH (18:41)
[2025-03-28 23:11] LABS: MRSA (PCR) NOT DETECTED (NOT DETECTE)
[2025-03-29] VITALS (32 sets, daily range): BP systolic 108–147; BP diastolic 57–88; PULSE 91–109; RESP 16–22; TEMP 36.1–37.8; O2SAT 85–100
[2025-03-29] MEDS: APIXABAN 5 MG TABLET PO ×3 (00:09→20:06)
--- NOTE | 2025-03-29 01:18 | PC.NURSE ---
Pharmacy notified of updated time for dialysis being at 0800 so that they can time the random vancomycin trough appropriately.
[2025-03-29 05:10] LABS: Basophils Percent Auto 0.2 % (0.2-1.2); Eosinophils Absolute Auto 0.3 K/mm3 (0-0.3); Eosinophils Percent Auto 1.5 % (0-4.4); Hematocrit 31.1 % (37.0-47.0); Hemoglobin 9.1 g/dL (12.0-15.0); Immature Granulocyte Absolute 0.09 K/mm3 (0.00-0.031); Immature Granulocyte Percent A 0.5 % (0-0.5); Immature Platelet Fraction Pct 3.5 % (0.9-11.2); Lymphocytes Absolute Auto 1.55 K/mm3 (0.9-3.2); Lymphocytes Percent Auto 8.5 % (18.3-44.2); Mean Corpuscular HGB Conc 29.3 g/dl (32-36); Mean Corpuscular Hemoglobin 28.1 pg (26-34); Mean Platelet Volume 10.6 fl (7.4-10.4); Monocytes Absolute Auto 1.9 K/mm3 (0.1-0.6); Monocytes Percent Auto 10.5 % (2.6-8.5); Neutrophils Absolute Auto 14.4 K/mm3 (1.3-6.7); Neutrophils Percent Auto 78.8 % (45.5-73.1); Nucleated Red Blood Cells Perc 0.2 % (0.0-0.2); Platelet Count Result 229 k/mm3 (150-375); Red Blood Count 3.24 M/mm3 (4.2-5.4); Red Cell Distribution Width 13.9 % (11.5-14.5); White Blood Count 18.3 K/mm3 (4.5-10.0)
[2025-03-29 05:21] LABS: Alanine Aminotransferase 11 U/L (6-35); Albumin Level 2.6 g/dL (3.5-5.1); Alkaline Phosphatase 165 U/L (38-126); Anion Gap 9 mmol/L (4-12); Aspartate Amino Transferase 18 U/L (14-36); Bilirubin,Total 0.2 mg/dL (0.2-1.3); Blood Urea Nitrogen 29 mg/dL (7-17); Calcium 7.7 mg/dL (8.4-10.2); Carbon Dioxide 17 mmol/L (22-30); Chloride 107 mmol/L (98-107); Estimated CRCL calculation 15 ml/min; Estimated Glomerular Filt Rate 8; Glucose 211 mg/dL (65-110); Phosphorus 4.5 mg/dL (2.5-4.5); Potassium 4.3 mmol/L (3.4-5.0); Sodium 133 mmol/L (137-145)
[2025-03-29 05:35] LABS: Platelet Estimate Adequate (Adequate)
[2025-03-29 05:36] LABS: Anisocytosis 1+; Large Platelets Present; Schistocytes None Seen
[2025-03-29 05:52] LABS: Hepatitis B Surface Antigen Negative (Negative)
[2025-03-29 07:18] LABS: Glucose Point of Care 191 mg/dl (65-105)
[2025-03-29 07:33] LABS: Hepatitis B Surface Anti Res Indeterminate
[2025-03-29 08:32] LABS: Add Urine Microscopic? YES; Appearance Urine Turbid (Clear); Bacteria Urine 1+ /hpf; Bilirubin Urine Negative (Negative); Blood Urine 3+ (Negative); Color Urine Yellow (Yellow); Glucose Urine UA 3+ mg/dL (Negative); Ketones Urine Trace mg/dL (Negative); Leukocyte Esterase Ur 1+ LEU/UL (Negative); Need Manual Microscopic Reviewed; Nitrate Urine Negative (Negative); Non Pathogenic Casts >20; Protein Urine 4+ mg/dL (Negative); RBC Urine 21-50 /hpf (0-2); Specific Grav Ur 1.023 (1.001-1.035); Squamous Epithelial Cell Urine Few /hpf (Few); Urobilinogen Urine 0.2 mg/dL (<2.0); pH Urine 5.5 (5.0-9.0)
[2025-03-29] MEDS: HEPARIN SODIUM 1,000 UNITS/ML VIAL 2000 UNITS IV PUSH (09:19)
[2025-03-29] MEDS: HEPARIN SODIUM 1,000 UNITS/ML VIAL 1000 UNITS IV PUSH ×4 (09:23→12:23)
[2025-03-29] MEDS: ONDANSETRON INJ 4 MG/2 ML VIAL IV PUSH (09:36)
[2025-03-29] MEDS: INSULIN GLARGINE (*BKC) 100 UNITS/ML 30 UNITS SUB-Q (09:36)
--- NOTE | 2025-03-29 10:37 | P.CONNP_ITS ---
Assessment and Plan Assessment and plan (1) End stage renal disease: Code(s): N18.6 - End stage renal disease Status: Chronic Assessment and Plan: * missed treatment on Friday due to presentation to ER * HD today and likely again tomorrow * eventually transition back Fri/Fri/Friday dialysis schedule while hospitalized * follow electrolytes, volume status, and clearance (2) Pyelonephritis: Code(s): N12 - Tubulo-interstitial nephritis, not specified as acute or chronic Status: Acute Assessment and Plan: * as suggested by admission CT scan * UA as noted today is suggestive of infection as well * follow culture data * on antibiotics (3) Bacteremia: Code(s): R78.81 - Bacteremia Status: Resolved Assessment and Plan: * as noted by blood cultures: * 03/28 - Gram positive cocci in chains * interestingly, blood cultures done about a week ago (ER visit) were also positive: * 03/20 - Corynebacterium species, Staphylococcus epidermidis, and Enterococcus faecalis * unclear if she received any treatment/therapy for 03/20 blood cultures * on IV antibiotics * follow repeat cultures (4) Hypertension: Code(s): I10 - Essential (primary) hypertension Status: Chronic Assessment and Plan: * reasonably control * soft BP on admission * BP medications on hold * follow trend of hemodynamics (5) Anemia: Code(s): D64.9 - Anemia, unspecified Status: Chronic Assessment and Plan: * due to ESRD and acute illness * Retacrit with HD * follow H/H (6) Diabetes mellitus: Code(s): E11.9 - Type 2 diabetes mellitus without complications Status: Chronic Assessment and Plan: * poor control at baseline (A1c > 14) * follow accu-cheks * glycemic control per hospitalist I will continue to follow the patient with you while she remains hospitalized make further recommendations as deemed necessary. Thank you for allowing me to participate in the care of this patient. L History of Present Illness Reason for Consult Consult date: 03/29/25 Reason for consult: end stage renal disease Chief Complaint Chief complaint: Sepsis, hyperglycemia History of Present Illness Narrative: The patient is a 34-year-old female with extensive past medical history as outlined below who presented to [facility] with complaints of nausea and vomiting. The patient states that she not felt well for the last week with symptoms to include fatigue, generalized headache, body aches, nausea, vomiting which seemed to have progressively worsened. Body aches intensified yesterday morning and this led to her ER visit. She denies any sick contacts, fever, sinus congestion, cough, abdominal pain, rash, and joint pain and swelling. Given the persistence of these symptoms, she presented to the ER for furrher assessment. Evaluation in the ER noted the patient to be hemodynamically stable and afebrile. Routine labs were significant for WBC count of 21.3, hemoglobin 9.8, carbon dioxide 18, anion gap 10, BUN 25, creatinine 5.87, glucose 706, beta hydroxybutyrate 0.96, hemoglobin A1c > 14.0, CRP 20.2, procalcitonin 23.5, lactic acid 1.4. Her ABG showed a pH of 7.304, pCO2 32.8, PO2 67.5, HC03 15.9. She tested negative for influenza, RSV, COVID, and group A strep. Subsequent CT of the chest, abdomen, and pelvis showed inflammatory change of the bilateral renal calices, right greater than left, for which pyelonephritis is suspected. She was unable to produce a urine specimen and refused catheterization while in the ER. Findings within the chest suggestive of trace pulmonary edema with bilateral upper lobe distribution. While in the ER, her BP did drop and she was subsequently given 3 L crystalloid bolus with improvement. After appropriate culture were obtained, she was initiated on IV antibiotics for suspected UTI with associated pyelonephritis. She was subsequently admitted to the hospital for further evaluation therapy. Since her admission, she was finally able to give a urine sample which does show strong suggestion of infection. Further complicating matters is the fact that her blood cultures are now growing Gram-positive cocci in chains. Renal consultation was requested due to her end-stage renal disease. The patient is quite familiar to me as I take care of her outpatient dialysis needs since her initiation on renal replacement therapy/dialysis. The patient was initiated on renal replacement therapy/dialysis in late 2022 more so for control of her fluid status as she was diuretic resistantance and unable to achieve euvolemia with conservative therapy on her hospitalization here at [facility] in August 2023. It was hoped that dialysis would be a temporary measure but she did have significant chronic kidney disease at baseline even prior to her initiation of renal replacement therapy. Despite multiple interventions and testing with regard to 24 hr urine collections, her renal function did not significantly recover to discontinue dialysis and given the length of time that she has been on dialysis in general, it was felt that she had progressed to end-stage renal disease. She currently receives dialysis on a Friday, Friday, Friday schedule at the [facility] under my care. Her last dialysis session was on 03/25/25 although it was only a partial treatment. She apparently missed her dialysis treatment on Friday due to her presentation to the ER yesterday morning. Upon futher review with her outpatient dialysis center, she has been ending her dialysis treatments early (anywhere from 30 minutes to 1 hour) for the last several weeks and has missed treatments on 03/23 and 03/18 as well. Given her suboptimal treatments the last few weeks in conjunction with her miss treatments, is possible that some of her symptoms of nausea and vomiting are due to inadequate dialysis/uremia. At the time my evaluation, she is tolerating dialysis (seen on HD at 10:25AM) and is in no acute distress. Review of Systems 2 Review of Systems: As per HPI. 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 Septic arthritis of shoulder, left (05/2024) Diastolic heart failure secondary to hypertension EF 70% with grade 2 diastolic dysfunction echocardiogram August 2023 Anemia in chronic kidney disease End-stage renal disease on hemodialysis Hemodialysis initiated August 2023 Glaucoma Blind in both eyes (~03/2023) Occurred acutely March 2023 Diabetic neuropathy Hyperlipidemia Chronic heel ulcer Chronic heel ulcer on the left foot developed November 2022 with acute decompensation and subsequent above the knee amputation, now with a persistent right heel ulcer since the fall of 2022. Hypertension Surgical History Surgical History (Updated 03/28/25 @ 17:35 by Angeles Smith PA-C) History of left above knee amputation Due to osteomyelitis. History of cataract extraction Status post insertion of dialysis catheter (08/2023) Right subclavian Family History Family History Father Diabetes mellitus Hypertension Mother Hypertension Obesity Sibling Diabetes mellitus, Onset Age: 28 Sibling Unknown family medical history Does not see a doctor Diabetes mellitus Social History Social History (Updated 03/28/25 @ 17:37 by Angeles Smith PA-C) Social History: Surrogate decision maker: Kianna Nunez, sister ([phone]). Code status: Full code. Smoking status: Never smoker Additional smoking assessment comments: never smoked cigarettes Alcohol intake: never Drinks per week: 0 Substance use: former Substance use type: does not use Do You Feel Safe in your Home?: Yes Lack of Transportation: No Lack of Food: Never True Current Housing: I Have Housing Concerned About Future Housing: No Difficulty Paying Gas/Electric Bills: No Difficulty Paying for Meds: No Currently Unemployed: No Education: Grade School Difficulty w/ Childcare or Family Care: No Additional living arrangements comments: Lives with sister in [place]. 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 Spiritual care concerns: No Meds Home Medications and Allergies Home Medications ?Medication ?Instructions ?Recorded ?Confirmed ?Type amlodipine 10 mg tablet 10 mg PO DAILY 08/04/23 03/28/25 History carvedilol 12.5 mg tablet 25 mg PO Q12H 08/04/23 03/28/25 History lisinopril 20 mg tablet 20 mg PO QAM 30 days #30 tabs 08/23/23 03/28/25 Rx furosemide 40 mg tablet 40 mg PO DAILY 05/16/24 03/28/25 History apixaban 5 mg tablet (Eliquis) 5 mg PO BID 11/10/24 03/28/25 History blood sugar diagnostic (OneTouch #1 pkg 01/24/25 03/28/25 Rx Verio test strips) blood-glucose meter (OneTouch #1 pkg 01/24/25 03/28/25 Rx Verio Flex Meter) insulin aspart U-100 100 unit/mL 1 sliding scale dose subcut 01/24/25 03/28/25 Rx (3 mL) subcutaneous pen USEASDIRECTD #15 mL insulin glargine 100 unit/mL (3 30 unit (0.3 mL) subcut QAM #15 mL 01/24/25 03/28/25 Rx mL) subcutaneous pen (Lantus Solostar U-100 Insulin) lancets 30 gauge (OneTouch Delica #1 pkg 01/24/25 03/28/25 Rx Plus Lancet) pen needle, diabetic 32 gauge x #1,200 ea 01/24/25 03/28/25 Rx Allergies Allergy/AdvReac Type Severity Reaction Status Date / Time ceftriaxone (From Rocephin) Allergy Severe Other Verified 03/28/25 17:42 hydrocodone Allergy Mild Hives Verified 03/28/25 17:42 oxycodone Allergy Mild Hives Verified 03/28/25 17:42 Vital Signs Vital Signs Temp Pulse Resp BP Pulse Ox FiO2 03/29/25 10:30 94 117/78 03/29/25 10:15 94 147/84 H 03/29/25 10:00 94 131/78 03/29/25 09:45 95 127/78 03/29/25 09:30 91 123/71 03/29/25 09:23 92 109/67 03/29/25 09:23 2 03/29/25 09:00 98.8 F 93 22 H 114/68 91 03/29/25 08:36 100.1 F H 91 20 124/57 L 99 03/29/25 06:00 94 03/29/25 04:00 96 03/29/25 04:00 98 F 94 18 120/68 98 03/29/25 02:00 102 H 03/29/25 00:00 104 H 03/29/25 00:00 97.8 F 109 H 18 124/67 100 03/28/25 22:00 92 03/28/25 20:00 82 03/28/25 20:00 97.6 F 92 18 124/64 98 03/28/25 18:00 84 03/28/25 16:00 97.4 F L 84 18 91/44 L 99 03/28/25 15:30 85 19 100/65 99 03/28/25 13:31 84 17 96/60 L 100 Exam 2 Narrative: GENERAL APPEARANCE: chronically ill-appearing female in no acute distress HEENT: wearing sunglasses but nares patient NECK: no lymphadenopathy, thyromegaly, or JVD MOUTH: normal lips, teeth, and gums CARDIOVASCULAR: RRR, normal S1 and S2, no rub RESPIRATORY: clear to auscultation bilaterally ABDOMEN: obese but soft, nontender, nondistended, positive bowel sounds present EXTREMITIES: no evidence of cyanosis, clubbing, or edema; s/p left AKA SKIN: irregularly-shaped chronic right heel wound without erythema, warmth, or discharge. NEUROLOGICAL: alert and oriented x 3; no focal deficits noted Results Lab Results 03/29/25 04:58 03/29/25 04:58 Lab results: Most recent lab results ABG pH 7.304 (7.350-7.450) L 03/28/25 11:03 ABG pCO2 32.8 mmHg (35.0-45.0) L 03/28/25 11:03 ABG pO2 67.5 mmHg (80.0-100.0) L 03/28/25 11:03 ABG HCO3 15.9 mEq/l (22.0-26.0) L 03/28/25 11:03 ABG O2 Saturation 92.0 % (95.0-100.0) L 03/28/25 11:03 Calcium 7.7 mg/dL (8.4-10.2) L 03/29/25 04:58 Phosphorus 4.5 mg/dL (2.5-4.5) 03/29/25 04:58 Magnesium 2.0 mg/dL (1.6-2.3) 03/29/25 04:58
[2025-03-29] MEDS: EPOETIN ALFA-EPBX 10,000 UNITS/ML VIAL 10000 UNITS IV PUSH (11:39)
[2025-03-29] MEDS: HEPARIN SODIUM 1,000 UNITS/ML VIAL 6000 UNITS IV PUSH (13:15)
[2025-03-29 13:39] LABS: Glucose Point of Care 141 mg/dl (65-105)
[2025-03-29] MEDS: fentaNYL CITRATE INJ (*CRX) 100 MCG/2 ML VIAL 50 MCG IV PUSH ×2 (14:09→18:20)
[2025-03-29] MEDS: AZTREONAM 2 GM/NS 100 ML 2 GM/100 ML BAG IVPB (14:16)
--- NOTE | 2025-03-29 14:39 | PC.NURSE ---
This patient, Gay Canales, was transferred to [facility] on 03/29/25 at 1439. Personal belongings sent with patient. Report given to JIMMIE Madrid. Appropriate documentation sent with patient. Detailed message left with sister, Aleyda.
[2025-03-29 16:35] LABS: Glucose Point of Care 172 mg/dl (65-105)
--- NOTE | 2025-03-29 18:11 | P.PNIM_ITS ---
Progress Note: A&P Assessment and Plan (1) Sepsis: Code(s): A41.9 - Sepsis, unspecified organism Status: Acute (2) Pyelonephritis: Code(s): N12 - Tubulo-interstitial nephritis, not specified as acute or chronic Status: Acute (3) Hypotension: Code(s): I95.9 - Hypotension, unspecified Status: Acute (4) Uncontrolled insulin dependent diabetes mellitus: Status: Acute (5) End-stage renal disease on hemodialysis: Code(s): N18.6 - End stage renal disease; Z99.2 - Dependence on renal dialysis Status: Acute (6) Anemia in chronic kidney disease: Code(s): N18.9 - Chronic kidney disease, unspecified; D63.1 - Anemia in chronic kidney disease Status: Acute Plan Pyelonephritis with Sepsis Bacteremia, blood cultures positive for GPC in chains CT AP reviewed Continue Aztreonam and Vanc Monitor blood cultures Hypotension resolved from above monitor DM2 SSi with accucheks contineu lantus ESRD Continue dialysis nephrology following Hb 9.1 iron profile Continue monitoring H and h DVT prophylaxis on Eliquis Subjective Date/time seen: 03/29/25 18:11 Interval history: Comfortable at bedside Review of Systems Review of Systems: 12 systems were reviewed and are negativ e except for as per HPI. Exam Narrative: General: Chronically ill, nontoxic-appearing female supine in bed. Weight: 93.89 kg. BMI: 32.4. HEENT: Wearing dark glasses. Chronic scarring of the left cornea. Right pupil is sluggishly reactive. Eyes deviated in upward gaze. Tacky mucous membranes. Neck: Supple. Exam difficult due to neck circumference. No obvious thyromegaly or lymphadenopathy. Respiratory: Respirations are nonlabored and lungs are clear to auscultation bilaterally. Cardiovascular: Regular rate and rhythm with S1-S2. Chest: Dialysis catheter in the left upper chest without warmth, erythema, or exudate. Gastrointestinal: Abdomen is soft, obese, nontender, nondistended with positive bowel sounds. Equivocal CVA tenderness. Skin: Warm and dry. Irregularly-shaped chronic right heel wound without erythema, warmth, or discharge. Extremities: No cyanosis or clubbing. Status post left [id number] a mputation. Radial pulse 2 +bilaterally, right pedal pulse 1 +. Musculoskeletal: No swelling, warmth, or erythema over the shoulders, elbows, wrist, right knee, or right ankle joints. Spine: No midline vertebral tenderness. She has some tenderness to palpation over the paraspinous muscles throughout. Neurological: Alert and oriented. Eyes deviate upward bilaterally. Speech is clear. No facial asymmetry. Pretty good strength, status post left [id number] amputation. Decrease in sensation in the hands and right foot re lated to neuropathy. Psychiatric: Pleasant and cooperative with appropriate mood and affect. Objective Data Vital Signs Vital Signs: Vital Signs - 24 hr 03/28/25 20:00 03/28/25 20:00 03/28/25 22:00 Temperature 97.6 F Pulse Rate 92 82 92 Respiratory Rate 18 Blood Pressure 124/64 Pulse Oximetry 98 Oxygen Delivery Oxygen Flow Rate Fraction of Inspired Oxygen 03/29/25 00:00 03/29/25 00:00 03/29/25 02:00 Temperature 97.8 F Pulse Rate 109 H 104 H 102 H Respiratory Rate 18 Blood Pressure 124/67 Pulse Oximetry 100 Oxygen Delivery Oxygen Flow Rate Fraction of Inspired Oxygen 03/29/25 04:00 03/29/25 04:00 03/29/25 06:00 Temperature 98 F Pulse Rate 94 96 94 Respiratory Rate 18 Blood Pressure 120/68 Pulse Oximetry 98 Oxygen Delivery Oxygen Flow Rate Fraction of Inspired Oxygen 03/29/25 08:00 03/29/25 08:00 03/29/25 08:36 Temperature 100.1 F H Pulse Rate 101 H 91 Respiratory Rate 20 Blood Pressure 124/57 L Pulse Oximetry 95 99 Oxygen Delivery Nasal Cannula Oxygen Flow Rate 2 Fraction of Inspired Oxygen 03/29/25 09:00 03/29/25 09:23 03/29/25 09:23 Temperature 98.8 F Pulse Rate 93 92 Respiratory Rate 22 H Blood Pressure 114/68 109/67 Pulse Oximetry 91 Oxygen Delivery Oxygen Flow Rate Fraction of Inspired Oxygen 2 03/29/25 09:30 03/29/25 09:45 03/29/25 10:00 Temperature Pulse Rate 91 95 94 Respiratory Rate Blood Pressure 123/71 127/78 131/78 Pulse Oximetry Oxygen Delivery Oxygen Flow Rate Fraction of Inspired Oxygen 03/29/25 10:00 03/29/25 10:15 03/29/25 10:30 Temperature Pulse Rate 94 94 94 Respiratory Rate Blood Pressure 147/84 H 117/78 Pulse Oximetry Oxygen Delivery Oxygen Flow Rate Fraction of Inspired Oxygen 03/29/25 10:45 03/29/25 11:00 03/29/25 11:15 Temperature Pulse Rate 93 93 94 Respiratory Rate Blood Pressure 118/75 108/73 117/80 Pulse Oximetry Oxygen Delivery Oxygen Flow Rate Fraction of Inspired Oxygen 03/29/25 11:30 03/29/25 11:45 03/29/25 12:00 Temperature Pulse Rate 95 93 94 Respiratory Rate Blood Pressure 118/77 127/82 118/81 Pulse Oximetry Oxygen Delivery Oxygen Flow Rate Fraction of Inspired Oxygen 03/29/25 12:00 03/29/25 12:00 03/29/25 12:15 Temperature Pulse Rate 92 94 Respiratory Rate Blood Pressure 117/77 Pulse Oximetry 91 Oxygen Delivery Room Air Oxygen Flow Rate Fraction of Inspired Oxygen 03/29/25 12:30 03/29/25 12:45 03/29/25 12:57 Temperature Pulse Rate 95 95 94 Respiratory Rate Blood Pressure 123/81 125/80 127/83 Pulse Oximetry Oxygen Delivery Oxygen Flow Rate Fraction of Inspired Oxygen 03/29/25 13:00 03/29/25 13:43 03/29/25 14:00 Temperature 98.8 F 97.0 F L Pulse Rate 94 97 95 Respiratory Rate 16 22 H Blood Pressure 135/88 129/63 Pulse Oximetry 100 91 Oxygen Delivery Oxygen Flow Rate Fraction of Inspired Oxygen 03/29/25 14:59 Temperature 98.9 F Pulse Rate 95 Respiratory Rate 18 Blood Pressure 114/59 L Pulse Oximetry 85 L Oxygen Delivery Oxygen Flow Rate Fraction of Inspired Oxygen Intake/Output Intake/Output: Intake & Output 03/26/25 03/27/25 03/28/25 03/29/25 23:59 23:59 23:59 23:59 Intake Total 3080 350 Output Total 2600 Balance 3080 -2250 Meds/Results Medications: Active Medications Generic Name Dose Route Start Last Admin Trade Name Freq PRN Reason Stop Dose Admin Acetaminophen 650 mg 03/28/25 23:46 Acetaminophen 325 Mg Tablet PO Q6H PRN Mild Pain (1-3) or Fever Apixaban 5 mg 03/28/25 23:50 03/29/25 14:16 Apixaban 5 Mg Tablet PO 5 mg Q12HR ERICK Administration Dextrose 12.5 gm 03/28/25 23:46 Dextrose 50% 25 Gm/50 Ml Syringe IV PUSH PRN PRN Hypoglycemia Protocol Epoetin Ori-epbx 10,000 units 03/29/25 19:21 03/29/25 11:39 Epoetin Ori-Epbx 10,000 Units/Ml Vial IV PUSH 03/29/25 19:22 10,000 units ONCE ONE Administration Fentanyl Citrate 50 mcg 03/29/25 13:42 03/29/25 14:09 Fentanyl Citrate Inj (*Crx) 100 Mcg/2 Ml Vial IV PUSH 50 mcg Q2H PRN Administration Pain Rated 7-10 Glucagon 1 mg 03/28/25 23:46 Glucagon For Inj 1 Mg Vial IM PRN PRN Hypoglycemia Protocol Glucose 15 gm 03/28/25 23:46 Glucose Oral Gel 15 Gm Of Glucse In 37.5 Gm Tube PO PRN PRN Hypoglycemia Protocol Aztreonam 2 gm in 100 mls @ 200 mls/hr 03/29/25 14:00 03/29/25 14:16 Azactam 2 Gm/Ns 100 Ml IVPB 200 mls/hr Q24H ERICK Administration Dextrose 1,000 mls @ 100 mls/hr 03/28/25 23:46 Dextrose 5% 1,000 Ml IVPB PRN PRN Hypoglycemia Protocol Albumin Human 50 mls @ 999 mls/hr 03/29/25 07:16 Albutein IVPB 04/28/25 07:15 Q10M PRN HYPOTENSION Insulin Aspart 4 - 8 units 03/29/25 08:00 03/29/25 17:37 Insulin Aspart (*Bkc) 100 Units/Ml SUB-Q Not Given [facility] Protocol Insulin Aspart 2 - 4 units 03/29/25 21:00 Insulin Aspart (*Bkc) 100 Units/Ml SUB-Q [facility] Protocol Insulin Glargine 30 units 03/29/25 09:00 03/29/25 09:36 Insulin Glargine (*Bkc) 100 Units/Ml SUB-Q 30 units QAM ERICK Administration Ondansetron HCl 4 mg 03/29/25 08:52 03/29/25 09:36 Ondansetron Inj 4 Mg/2 Ml Vial IV PUSH 4 mg Q6H PRN Administration Nausea And Vomiting Vancomycin HCl 1 each 03/28/25 16:39 Vancomycin For Hemodialysis IVPB PRN PRN Vancomycin Protocol Radiology Results: ITS Impressions Chest/Abdomen/Pelvis CT 03/28/25 09:33 IMPRESSION: Inflammatory change of the bilateral renal calyces, right greater than left for which pyelonephritis is suspected, and for which clinical correlation is needed. Findings within the chest suggesting trace pulmonary edema with a bilateral upper lobe distribution. Foot X-Ray 03/28/25 14:09 IMPRESSION: No acute osseous abnormality of the right foot. Polyarticular osteoarthritic changes. Laceration in the plantar aspect of the foot opposite the calcaneus. Labs Labs: Laboratory Results - last 24 hr 03/28/25 03/28/25 03/28/25 17:45 18:10 21:50 WBC RBC Hgb Hct MCV MCH MCHC RDW Plt Count MPV Immature Gran % (Auto) Neut % (Auto) Lymph % (Auto) [place] % (Auto) Eos % (Auto) Baso % (Auto) Lymph # (Auto) [place] # (Auto) Eos # (Auto) Baso # (Auto) Abs Immat Gran (auto) Absolute Neuts (auto) Absolute Nucleated RBC Band Neutrophils % Nucleated RBC % Platelet Estimate Large Platelets % Immature Plt Fraction Anisocytosis Schistocytes VBG pH 7.389 VBG pCO2 25.0 L* VBG pO2 63.9 H VBG HCO3 14.8 L O2 Delivery Device Room air O2 Liters/Min Not Reportable FiO2 21 Sodium 131 L Potassium 4.7 Chloride 108 H Carbon Dioxide 14 L Anion Gap 9 BUN 28 H Creatinine 5.70 H Estim Creat Clear Calc 15 Estimated GFR 9 L Glucose 281 H POC Capillary Glucose Calcium 7.7 L Phosphorus Magnesium 1.9 Total Bilirubin AST ALT Alkaline Phosphatase Total Protein Albumin Urine Color Urine Appearance Urine pH Ur Specific [place] Urine Protein Urine Glucose (UA) Urine Ketones Ur Blood (Man) Urine Nitrate Urine Bilirubin Urine Urobilinogen Add Ur Microanalysis Leukocyte Esterase Rfl Urine RBC Urine WBC Ur Squamous Epith Cells Urine Bacteria Urine Casts Nasal MRSA (PCR) Not detected Random Vancomycin Hep Bs Antigen Hep Bs Antibody 03/29/25 03/29/25 03/29/25 04:58 07:13 08:13 WBC 18.3 H RBC 3.24 L Hgb 9.1 L Hct 31.1 L MCV 96.0 MCH 28.1 MCHC 29.3 L RDW 13.9 Plt Count 229 MPV 10.6 H Immature Gran % (Auto) 0.5 Neut % (Auto) 78.8 H Lymph % (Auto) 8.5 L [place] % (Auto) 10.5 H Eos % (Auto) 1.5 Baso % (Auto) 0.2 Lymph # (Auto) 1.55 [place] # (Auto) 1.9 H Eos # (Auto) 0.3 Baso # (Auto) 0.0 Abs Immat Gran (auto) 0.09 H Absolute Neuts (auto) 14.4 H Absolute Nucleated RBC 0.030 H Band Neutrophils % Not Reportable Nucleated RBC % 0.2 Platelet Estimate Adequate Large Platelets Present % Immature Plt Fraction 3.5 Anisocytosis 1+ Schistocytes None seen VBG pH VBG pCO2 VBG pO2 VBG HCO3 O2 Delivery Device O2 Liters/Min FiO2 Sodium 133 L Potassium 4.3 Chloride 107 Carbon Dioxide 17 L Anion Gap 9 BUN 29 H Creatinine 6.09 H Estim Creat Clear Calc 15 Estimated GFR 8 L Glucose 211 H POC Capillary Glucose 191 H Calcium 7.7 L Phosphorus 4.5 Magnesium 2.0 Total Bilirubin 0.2 AST 18 ALT 11 Alkaline Phosphatase 165 H Total Protein 6.0 L Albumin 2.6 L Urine Color Yellow Urine Appearance Turbid H Urine pH 5.5 Ur Specific [place] 1.023 Urine Protein 4+ H Urine Glucose (UA) 3+ H Urine Ketones Trace H Ur Blood (Man) 3+ H Urine Nitrate Negative Urine Bilirubin Negative Urine Urobilinogen 0.2 Add Ur Microanalysis Reviewed Leukocyte Esterase Rfl 1+ H Urine RBC 21-50 H Urine WBC 11-20 H Ur Squamous Epith Cells Few Urine Bacteria 1+ H Urine Casts >20 Nasal MRSA (PCR) Random Vancomycin 26.0 H Hep Bs Antigen Negative Hep Bs Antibody Indeterminate 03/29/25 03/29/25 13:35 16:33 WBC RBC Hgb Hct MCV MCH MCHC RDW Plt Count MPV Immature Gran % (Auto) Neut % (Auto) Lymph % (Auto) [place] % (Auto) Eos % (Auto) Baso % (Auto) Lymph # (Auto) [place] # (Auto) Eos # (Auto) Baso # (Auto) Abs Immat Gran (auto) Absolute Neuts (auto) Absolute Nucleated RBC Band Neutrophils % Nucleated RBC % Platelet Estimate Large Platelets % Immature Plt Fraction Anisocytosis Schistocytes VBG pH VBG pCO2 VBG pO2 VBG HCO3 O2 Delivery Device O2 Liters/Min FiO2 Sodium Potassium Chloride Carbon Dioxide Anion Gap BUN Creatinine Estim Creat Clear Calc Estimated GFR Glucose POC Capillary Glucose 141 H 172 H Calcium Phosphorus Magnesium Total Bilirubin AST ALT Alkaline Phosphatase Total Protein Albumin Urine Color Urine Appearance Urine pH Ur Specific [place] Urine Protein Urine Glucose (UA) Urine Ketones Ur Blood (Man) Urine Nitrate Urine Bilirubin Urine Urobilinogen Add Ur Microanalysis Leukocyte Esterase Rfl Urine RBC Urine WBC Ur Squamous Epith Cells Urine Bacteria Urine Casts Nasal MRSA (PCR) Random Vancomycin Hep Bs Antigen Hep Bs Antibody Quality VTE Prophylaxis VTE prophylaxis: pharmacologic ordered (on apixaban)
[2025-03-29] MEDS: INSULIN ASPART (*BKC) 100 UNITS/ML SUB-Q (20:06)
[2025-03-29] MEDS: ACETAMINOPHEN 325 MG TABLET 650 MG PO (20:06)
[2025-03-30] VITALS (20 sets, daily range): BP systolic 124–181; BP diastolic 65–104; PULSE 86–102; RESP 16–20; TEMP 36.4–37.3; O2SAT 90–100
--- NOTE | 2025-03-30 | ECHO_ITS ---
Patient Info Name: Gay Canales Age: 34 years : 1990 Gender: Female Ht: 67 in Wt: 243 lbs BSA: 2.33 m2 HR: 98 bpm BP: 173 / 104 mmHg Heart Rhythm: Sinus Rhythm Technical Quality: Good Exam Date: 03/30/2025 1:46 PM Patient Status: I Admit Date: 03/29/2025 Exam Type: CA echo doppler color flow Complete two-dimensional, color flow and Doppler transthoracic echocardiogram is performed. Staff Referring Physician: Angeles Smith [facility] Water Quality Control Engineer: Violet Carr Attending Provider: Stoney Mcclellan MD Summary 1. Complete two-dimensional, color flow and Doppler transthoracic echocardiogram is performed. 2. There is normal biventricular size and systolic function. 3. There are no significant valvular abnormalities. Left Ventricle The left ventricle is normal in size and systolic function. There is concentric left ventricular remodeling. The left ventricular ejection fraction is visually estimated to be 65-70%. Right Ventricle The right ventricle is normal in size and systolic function. Left Atria The left atrium is normal size. Right Atria Right atrium is normal size. Atrial Septum The atrial septum is not well visualized. Aortic Valve The aortic valve is trileaflet and opens well. There is no aortic regurgitation. Pulmonic Valve The pulmonic valve is grossly normal. There is no color Doppler evidence of pulmonic valve regurgitation. Mitral Valve The mitral valve is normal. Tricuspid Valve The tricuspid valve is normal. There is trace tricuspid regurgitation. Pericardium/Pleural There is trivial pericardial effusion. Inferior Vena Cava Normal inferior vena cava with >50% collapse upon inspiration consistent with normal right atrial pressure, 3 mmHg. Aorta The aortic root at the level of the sinus of Valsalva measures 2.8 cm in diameter. Left Ventricular Outflow Tract Name Value Normal LVOT 2D LVOT Diameter 1.8 cm LVOT Doppler LVOT Peak Velocity 150 cm/s LVOT Peak Gradient 9 mmHg LVOT Mean Gradient 5 mmHg LVOT VTI 28 cm LVOT VTI/AV VTI Ratio 0.9 LVOT Stroke Volume 70 ml LVOT CO 6.8 l/min LVOT CI 2.9 l/min/m2 Mitral Valve Name Value Normal MV Diastolic Function MV E Peak Velocity 119 cm/s MV A Peak Velocity 118 cm/s MV E/A 1.0 MV Decel Time (PW) 239 ms MV Annular TDI MV E/e' (Septal) 7.3 MV E/e' (Lateral) 11.7 MV E/e' (Average) 9.5 Tricuspid Valve Name Value Normal TV Regurgitation Doppler TR Peak Velocity 287 cm/s TR Peak Gradient 33 mmHg Estimated PAP/RSVP RA Pressure 3 mmHg <=5 PA Systolic Pressure 36 mmHg <36 RV Systolic Pressure 36 mmHg <36 TV Annular TDI TV Lateral Kayla s' Velocity 18.8 cm/s >=9.5 Aortic Valve Name Value Normal AV Doppler AV Peak Velocity 175 cm/s AV Peak Gradient 12 mmHg AV Mean Gradient 7 mmHg AV VTI 30 cm AV Area (Cont Eq VTI) 2.4 cm2 >=3.0 AV Area (Cont Eq Ochoa) 2.2 cm2 AV DI (Ochoa) 0.86 AV Regurgitation 2D LVOT Area 2.5 cm2 Ventricles Name Value Normal LV Dimensions 2D/MM IVS Diastolic Thickness (2D) 1.0 cm 0.6-1.0 LVID Diastole (2D) 4.3 cm 3.8-5.2 LVIW Diastolic Thickness (2D) 1.0 cm 0.6-0.9 LVID Systole (2D) 2.8 cm 2.2-3.5 LVOT Diameter 1.8 cm LV Mass (2D Cubed) 148.56 g 67.00-162.00 LV Mass Index (2D Cubed) 64 g/m2 43-95 Relative Wall Thickness (2D) 0.47 <=0.42 LV Fractional Shortening/Ejection Fraction 2D/MM LV Fractional Shortening (2D) 34 % 27-45 LV EF (2D Teichholz) 63 % LV Diastolic Volume (4C MOD) 87 ml LV EF (4C MOD) 67 % LV Diastolic Volume (2C MOD) 91 ml LV EF (2C MOD) 70 % LV Diastolic Volume (BP MOD) 90 ml 46-106 LV Diastolic Volume Index (BP MOD) 39 ml/m2 29-61 LV Systolic Volume (BP MOD) 26 ml 14-42 LV Systolic Volume Index (BP MOD) 11 ml/m2 8-24 LV EF (BP MOD) 71 % 54-74 LV Diastolic Length (4C) 8.0 cm LV Systolic Length (4C) 6.6 cm LV Stroke Volume (4C MOD) 59 ml Atria Name Value Normal LA Dimensions LA Volume (4C A-L) 35 ml LA Volume (BP A-L) 37 ml RA Dimensions RA Systolic Major [place] Length (4C) 4.6 cm 2.2-2.8 RA Area (4C) 9.5 cm2 <=18.0 Report Signatures
[2025-03-30] MEDS: fentaNYL CITRATE INJ (*CRX) 100 MCG/2 ML VIAL 50 MCG IV PUSH ×5 (00:03→21:03)
[2025-03-30] MEDS: diphenhydrAMINE HCl CAP 25 MG CAPSULE PO ×2 (00:05→07:45)
[2025-03-30 05:52] LABS: Basophils Percent Auto 0.2 % (0.2-1.2); Eosinophils Absolute Auto 0.5 K/mm3 (0-0.3); Eosinophils Percent Auto 4.1 % (0-4.4); Hematocrit 33.7 % (37.0-47.0); Hemoglobin 10.1 g/dL (12.0-15.0); Immature Granulocyte Absolute 0.06 K/mm3 (0.00-0.031); Immature Granulocyte Percent A 0.5 % (0-0.5); Lymphocytes Absolute Auto 1.64 K/mm3 (0.9-3.2); Lymphocytes Percent Auto 13.3 % (18.3-44.2); Mean Corpuscular Hemoglobin 28.1 pg (26-34); Mean Corpuscular Volume 93.9 fl (80-100); Mean Platelet Volume 10.5 fl (7.4-10.4); Monocytes Absolute Auto 1.9 K/mm3 (0.1-0.6); Monocytes Percent Auto 15.2 % (2.6-8.5); Neutrophils Absolute Auto 8.2 K/mm3 (1.3-6.7); Neutrophils Percent Auto 66.7 % (45.5-73.1); Nucleated Red Blood Cells Perc 0.3 % (0.0-0.2); Platelet Count Result 281 k/mm3 (150-375); Red Blood Count 3.59 M/mm3 (4.2-5.4); Red Cell Distribution Width 14.2 % (11.5-14.5); White Blood Count 12.3 K/mm3 (4.5-10.0)
[2025-03-30 05:59] LABS: Glucose Point of Care 231 mg/dl (65-105)
[2025-03-30 06:03] LABS: Alanine Aminotransferase 9 U/L (6-35); Alkaline Phosphatase 156 U/L (38-126); Anion Gap 10 mmol/L (4-12); Aspartate Amino Transferase 17 U/L (14-36); Bilirubin,Total 0.4 mg/dL (0.2-1.3); Blood Urea Nitrogen 19 mg/dL (7-17); Calcium 7.6 mg/dL (8.4-10.2); Carbon Dioxide 25 mmol/L (22-30); Chloride 102 mmol/L (98-107); Estimated CRCL calculation 21 ml/min; Estimated Glomerular Filt Rate 11; Glucose 242 mg/dL (65-110); Magnesium 2.1 mg/dL (1.6-2.3); Potassium 3.6 mmol/L (3.4-5.0); Sodium 137 mmol/L (137-145)
[2025-03-30 06:12] LABS: Vancomycin Random 15.2 ug/mL (10-20)
[2025-03-30] MEDS: ONDANSETRON INJ 4 MG/2 ML VIAL IV PUSH (07:45)
--- NOTE | 2025-03-30 10:21 | PC.NURSE ---
Pt refused AM meds at this time. States she wants to wait until she eats at lunch time.
[2025-03-30 12:15] LABS: Glucose Point of Care 191 mg/dl (65-105)
[2025-03-30] MEDS: ACETAMINOPHEN 325 MG TABLET 650 MG PO (12:51)
[2025-03-30] MEDS: APIXABAN 5 MG TABLET PO ×2 (12:52→21:03)
--- NOTE | 2025-03-30 13:41 | PM.IMPN ---
Progress Note: A&P Assessment and Plan (1) Sepsis: Code(s): A41.9 - Sepsis, unspecified organism Status: Acute (2) Pyelonephritis: Code(s): N12 - Tubulo-interstitial nephritis, not specified as acute or chronic Status: Acute (3) Hypotension: Code(s): I95.9 - Hypotension, unspecified Status: Acute (4) Uncontrolled insulin dependent diabetes mellitus: Status: Acute (5) End-stage renal disease on hemodialysis: Code(s): N18.6 - End stage renal disease; Z99.2 - Dependence on renal dialysis Status: Acute (6) Anemia in chronic kidney disease: Code(s): N18.9 - Chronic kidney disease, unspecified; D63.1 - Anemia in chronic kidney disease Status: Acute Plan Pyelonephritis with Sepsis Bacteremia, blood cultures positive for GPC in chains Prior blood cultue on 03/[address] positive for E [address] CT AP reviewed Continue Vanc Monitor repeat blood cultures Hypotension resolved from above monitor DM2 SSi with accucheks contineu lantus ESRD Continue dialysis nephrology following Hb 9.1 iron profile Continue monitoring H and h DVT prophylaxis on Eliquis Subjective Date/time seen: 03/30/25 13:41 Interval history: Comfortable at bedside Review of Systems Review of Systems: 12 systems were reviewed and are negative except for as per HPI. Exam Narrative: General: Chronically ill, nontoxic-appearing female supine in bed. Weight: 93.89 kg. BMI: 32.4. HEENT: Wearing dark glasses. Chronic scarring of the left cornea. Right pupil is sluggishly reactive. Eyes deviated in upward gaze. Tacky mucous membranes. Neck: Supple. Exam difficult due to neck circumference. No obvious thyromegaly or lymphadenopathy. Respiratory: Respirations are nonlabored and lungs are clear to auscultation bilaterally. Cardiovascular: Regular rate and rhythm with S1-S2. Chest: Dialysis catheter in the left upper chest without warmth, erythema, or exudate. Gastrointestinal: Abdomen is soft, obese, nontender, nondistended with positive bowel sounds. Equivocal CVA tenderness. Skin: Warm and dry. Irregularly-shaped chronic right heel wound without erythema, warmth, or discharge. Extremities: No cyanosis or clubbing. Status post left [id number] amputation. Radial pulse 2 +bilaterally, right pedal pulse 1 +. Musculoskeletal: No swelling, warmth, or erythema over the shoulders, elbows, wrist, right knee, or right ankle joints. Spine: No midline vertebral tenderness. She has some tenderness to palpation over the paraspinous muscles throughout. Neurological: Alert and oriented. Eyes deviate upward bilaterally. Speech is clear. No facial asymmetry. Pretty good strength, status post left [id number] amputation. Decrease in sensation in the hands and right foot related to neuropathy. Psychiatric: Pleasant and cooperative with appropriate mood and affect. Objective Data Vital Signs Vital Signs: Vital Signs - 24 hr 03/29/25 13:43 03/29/25 14:00 03/29/25 14:59 Temperature 97.0 F L 98.9 F Pulse Rate 97 95 95 Respiratory Rate 22 H 18 Blood Pressure 129/63 114/59 L Pulse Oximetry 91 85 L Oxygen Delivery Oxygen Flow Rate 03/29/25 16:00 03/29/25 16:00 03/29/25 20:00 Temperature Pulse Rate 97 Respiratory Rate Blood Pressure Pulse Oximetry 93 92 Oxygen Delivery Nasal Cannula Nasal Cannula Oxygen Flow Rate 1 1 03/29/25 20:00 03/29/25 20:25 03/29/25 21:35 Temperature 99.1 F Pulse Rate 104 H 102 H 98 Respiratory Rate 16 Blood Pressure 131/73 Pulse Oximetry 95 97 Oxygen Delivery Nasal Cannula Oxygen Flow Rate 0.5 03/30/25 00:00 03/30/25 00:31 03/30/25 04:00 Temperature 99.1 F Pulse Rate 90 94 92 Respiratory Rate 18 Blood Pressure 124/67 Pulse Oximetry 98 Oxygen Delivery Oxygen Flow Rate 03/30/25 06:29 03/30/25 07:35 03/30/25 07:50 Temperature 97.6 F 98.2 F Pulse Rate 100 96 95 Respiratory Rate 18 20 16 Blood Pressure 157/65 H 157/91 H Pulse Oximetry 96 90 99 Oxygen Delivery Nasal Cannula Oxygen Flow Rate 0.5 03/30/25 07:50 03/30/25 07:57 03/30/25 08:00 Temperature Pulse Rate 92 Respiratory Rate Blood Pressure 173/98 H Pulse Oximetry 100 Oxygen Delivery Nasal Cannula Oxygen Flow Rate 1 1 03/30/25 08:00 03/30/25 08:15 03/30/25 08:30 Temperature Pulse Rate 93 93 102 H Respiratory Rate Blood Pressure 180/92 H 153/90 H Pulse Oximetry Oxygen Delivery Oxygen Flow Rate 03/30/25 08:45 03/30/25 09:00 03/30/25 09:15 Temperature Pulse Rate 100 94 95 Respiratory Rate Blood Pressure 181/99 H 157/90 H 167/101 H Pulse Oximetry Oxygen Delivery Oxygen Flow Rate 03/30/25 09:30 03/30/25 09:40 03/30/25 09:50 Temperature 98.2 F Pulse Rate 95 100 93 Respiratory Rate 16 Blood Pressure 152/77 H 158/93 H 173/104 H Pulse Oximetry 100 Oxygen Delivery Oxygen Flow Rate Intake/Output Intake/Output: Intake & Output 03/27/25 03/28/25 03/29/25 03/30/25 23:59 23:59 23:59 23:59 Intake Total 3080 470 762 Output Total 2600 318 Balance 3080 -2130 444 Meds/Results Medications: Active Medications Generic Name Dose Route Start Last Admin Trade Name Freq PRN Reason Stop Dose Admin Acetaminophen 650 mg 03/28/25 23:46 03/30/25 12:51 Acetaminophen 325 Mg Tablet PO 650 mg Q6H PRN Administration Mild Pain (1-3) or Fever Apixaban 5 mg 03/28/25 23:50 03/30/25 12:52 Apixaban 5 Mg Tablet PO 5 mg Q12HR ERICK Administration Dextrose 12.5 gm 03/28/25 23:46 Dextrose 50% 25 Gm/50 Ml Syringe IV PUSH PRN PRN Hypoglycemia Protocol Diphenhydramine HCl 25 mg 03/29/25 23:57 03/30/25 07:45 Diphenhydramine Hcl Cap 25 Mg Capsule PO 25 mg Q6H PRN Administration Itching Fentanyl Citrate 50 mcg 03/29/25 13:42 03/30/25 08:32 Fentanyl Citrate Inj (*Crx) 100 Mcg/2 Ml Vial IV PUSH 50 mcg Q2H PRN Administration Pain Rated 7-10 Glucagon 1 mg 03/28/25 23:46 Glucagon For Inj 1 Mg Vial IM PRN PRN Hypoglycemia Protocol Glucose 15 gm 03/28/25 23:46 Glucose Oral Gel 15 Gm Of Glucse In 37.5 Gm Tube PO PRN PRN Hypoglycemia Protocol Dextrose 1,000 mls @ 100 mls/hr 03/28/25 23:46 Dextrose 5% 1,000 Ml IVPB PRN PRN Hypoglycemia Protocol Albumin Human 50 mls @ 999 mls/hr 03/29/25 07:16 Albutein IVPB 04/28/25 07:15 Q10M PRN HYPOTENSION Vancomycin HCl 750 mg in 250 mls @ 250 mls/hr 03/30/25 14:00 Vancomycin 750 Mg/Ns 250 Ml IVPB 03/30/25 14:59 ONCE ONE Insulin Aspart 4 - 8 units 03/29/25 08:00 03/30/25 12:18 Insulin Aspart (*Bkc) 100 Units/Ml SUB-Q Not Given TIDWM [facility] Protocol Insulin Aspart 2 - 4 units 03/29/25 21:00 03/29/25 20:06 Insulin Aspart (*Bkc) 100 Units/Ml SUB-Q 2 units HS ERICK Administration Protocol Insulin Glargine 30 units 03/29/25 09:00 03/30/25 12:18 Insulin Glargine (*Bkc) 100 Units/Ml SUB-Q Not Given QAM [facility] Ondansetron HCl 4 mg 03/29/25 08:52 03/30/25 07:45 Ondansetron Inj 4 Mg/2 Ml Vial IV PUSH 4 mg Q6H PRN Administration Nausea And Vomiting Perflutren Lipid Microsphere 0 ml 03/30/25 08:29 Perflutren Lipid Microspheres 1.5 Ml Vial Diluted To 10 Ml Total Volume IV PUSH 04/02/25 08:29 ONCE PRN adequate visualization Protocol Vancomycin HCl 1 each 03/28/25 16:39 Vancomycin For Hemodialysis IVPB PRN PRN Vancomycin Protocol Radiology Results: ITS Impressions Chest/Abdomen/Pelvis CT 03/28/25 09:33 IMPRESSION: Inflammatory change of the bilateral renal calyces, right greater than left for which pyelonephritis is suspected, and for which clinical correlation is needed. Findings within the chest suggesting trace pulmonary edema with a bilateral upper lobe distribution. Foot X-Ray 03/28/25 14:09 IMPRESSION: No acute osseous abnormality of the right foot. Polyarticular osteoarthritic changes. Laceration in the plantar aspect of the foot opposite the calcaneus. Labs Labs: Laboratory Results - last 24 hr 03/29/25 03/29/25 03/30/25 16:33 20:01 05:23 WBC 12.3 H RBC 3.59 L Hgb 10.1 L Hct 33.7 L MCV 93.9 MCH 28.1 MCHC 30.0 L RDW 14.2 Plt Count 281 MPV 10.5 H Immature Gran % (Auto) 0.5 Neut % (Auto) 66.7 Lymph % (Auto) 13.3 L [place] % (Auto) 15.2 H Eos % (Auto) 4.1 Baso % (Auto) 0.2 Lymph # (Auto) 1.64 [place] # (Auto) 1.9 H Eos # (Auto) 0.5 H Baso # (Auto) 0.0 Abs Immat Gran (auto) 0.06 H Absolute Neuts (auto) 8.2 H Absolute Nucleated RBC 0.040 H Nucleated RBC % 0.3 H Sodium 137 Potassium 3.6 Chloride 102 Carbon Dioxide 25 Anion Gap 10 BUN 19 H D Creatinine 4.47 H Estim Creat Clear Calc 21 Estimated GFR 11 L Glucose 242 H POC Capillary Glucose 172 H 231 H Calcium 7.6 L Magnesium 2.1 Total Bilirubin 0.4 AST 17 ALT 9 Alkaline Phosphatase 156 H Total Protein 7.0 Albumin 3.0 L Random Vancomycin 15.2 03/30/25 12:05 WBC RBC Hgb Hct MCV MCH MCHC RDW Plt Count MPV Immature Gran % (Auto) Neut % (Auto) Lymph % (Auto) [place] % (Auto) Eos % (Auto) Baso % (Auto) Lymph # (Auto) [place] # (Auto) Eos # (Auto) Baso # (Auto) Abs Immat Gran (auto) Absolute Neuts (auto) Absolute Nucleated RBC Nucleated RBC % Sodium Potassium Chloride Carbon Dioxide Anion Gap BUN Creatinine Estim Creat Clear Calc Estimated GFR Glucose POC Capillary Glucose 191 H Calcium Magnesium Total Bilirubin AST ALT Alkaline Phosphatase Total Protein Albumin Random Vancomycin Quality VTE Prophylaxis VTE prophylaxis: pharmacologic ordered (on apixaban)
--- NOTE | 2025-03-30 13:43 | P.PNNP_ITS ---
Progress Note: A&P Assessment and Plan (1) End stage renal disease: Code(s): N18.6 - End stage renal disease Status: Chronic Assessment and Plan: * HD yesterday (since missed treatment on Friday) and only partially done treatment today * continue Fri/Fri/Friday dialysis schedule while hospitalized * follow electrolytes, volume status, and clearance (2) Pyelonephritis: Code(s): N12 - Tubulo-interstitial nephritis, not specified as acute or chronic Status: Acute Assessment and Plan: * as suggested by admission CT scan * UA as noted today is suggestive of infection as well * follow culture data - negative to date * on antibiotics (3) Bacteremia: Code(s): R78.81 - Bacteremia Status: Resolved Assessment and Plan: * as noted by blood cultures: * 03/28 (at 10:57) - Group B Streptococcus * interestingly, blood cultures done about a week ago (ER visit) were also positive: * 03/20 - Corynebacterium species, Staphylococcus epidermidis, and Enterococcus faecalis * unclear if she received any treatment/therapy for 03/20 blood cultures * follow repeat cultures * 03/28 (at 20:18) - negative to date * on IV antibiotics (4) Anemia: Code(s): D64.9 - Anemia, unspecified Status: Chronic Assessment and Plan: * due to ESRD and acute illness * Retacrit with HD * follow trend of H/H (5) Hypertension: Code(s): I10 - Essential (primary) hypertension Status: Chronic Assessment and Plan: * reasonably control * soft BP on admission * BP medications were on hold * slowly resume home BP medications as tolerated * follow trend of hemodynamics (6) Diabetes mellitus: Code(s): E11.9 - Type 2 diabetes mellitus without complications Status: Chronic Assessment and Plan: * poor control at baseline (A1c > 14) * follow accu-cheks * glycemic control per hospitalist Will continue to follow. L Subjective Date/time seen: 03/30/25 13:43 Interval history: Follow-up for end stage renal disease on hemodialysis. Tolerated dialysis treatment yesterday without any issue or problems; partial dialysis treatment earlier this morning (~ 2 hours) as patient complained of significant pain in her neck and back and requested to end treatment early; no apparent distress voiced at the time of my visit; no other events overnight or earlier this morning. Exam 2 Narrative: General: WD/WN female in NAD Heart: normal S1 and S2; no rub Lungs: clear to auscultation Abdomen: soft, nontender, nondistended, positive bowel sounds Extremities: no cyanosis or clubbing; no edema Skin: warm and dry Objective Data Vital Signs Vital Signs: Vital Signs Temp Pulse Resp BP Pulse Ox O2 Del Method O2 Flow Rate 03/30/25 09:50 98.2 F 93 16 173/104 H 100 03/30/25 09:40 100 158/93 H 03/30/25 09:30 95 152/77 H 03/30/25 09:15 95 167/101 H 03/30/25 09:00 94 157/90 H 03/30/25 08:45 100 181/99 H 03/30/25 08:30 102 H 153/90 H 03/30/25 08:15 93 180/92 H 03/30/25 08:00 93 03/30/25 08:00 100 Nasal Cannula 1 03/30/25 07:57 92 173/98 H 03/30/25 07:50 1 03/30/25 07:50 98.2 F 95 16 157/91 H 99 03/30/25 07:35 96 20 90 Nasal Cannula 0.5 03/30/25 06:29 97.6 F 100 18 157/65 H 96 03/30/25 04:00 92 03/30/25 00:31 99.1 F 94 18 124/67 98 03/30/25 00:00 90 03/29/25 21:35 98 97 Nasal Cannula 0.5 03/29/25 20:25 99.1 F 102 H 16 131/73 95 03/29/25 20:00 104 H 03/29/25 20:00 92 Nasal Cannula 1 Intake/Output Intake/Output: Intake & Output 03/27/25 03/28/25 03/29/25 03/30/25 23:59 23:59 23:59 23:59 Intake Total 3080 470 1362 Output Total 2600 618 Balance 3080 -8591 744 Meds/Results Medications: Active Medications Generic Name Dose Route Start Last Admin Trade Name Freq PRN Reason Stop Dose Admin Acetaminophen 650 mg 03/28/25 23:46 03/30/25 12:51 Acetaminophen 325 Mg Tablet PO 650 mg Q6H PRN Administration Mild Pain (1-3) or Fever Apixaban 5 mg 03/28/25 23:50 03/30/25 12:52 Apixaban 5 Mg Tablet PO 5 mg Q12HR ERICK Administration Dextrose 12.5 gm 03/28/25 23:46 Dextrose 50% 25 Gm/50 Ml Syringe IV PUSH PRN PRN Hypoglycemia Protocol Diphenhydramine HCl 25 mg 03/29/25 23:57 03/30/25 07:45 Diphenhydramine Hcl Cap 25 Mg Capsule PO 25 mg Q6H PRN Administration Itching Fentanyl Citrate 50 mcg 03/29/25 13:42 03/30/25 15:46 Fentanyl Citrate Inj (*Crx) 100 Mcg/2 Ml Vial IV PUSH 50 mcg Q2H PRN Administration Pain Rated 7-10 Glucagon 1 mg 03/28/25 23:46 Glucagon For Inj 1 Mg Vial IM PRN PRN Hypoglycemia Protocol Glucose 15 gm 03/28/25 23:46 Glucose Oral Gel 15 Gm Of Glucse In 37.5 Gm Tube PO PRN PRN Hypoglycemia Protocol Dextrose 1,000 mls @ 100 mls/hr 03/28/25 23:46 Dextrose 5% 1,000 Ml IVPB PRN PRN Hypoglycemia Protocol Albumin Human 50 mls @ 999 mls/hr 03/29/25 07:16 Albutein IVPB 04/28/25 07:15 Q10M PRN HYPOTENSION Insulin Aspart 4 - 8 units 03/29/25 08:00 03/30/25 12:18 Insulin Aspart (*Bkc) 100 Units/Ml SUB-Q Not Given TIDWM ERICK Protocol Insulin Aspart 2 - 4 units 03/29/25 21:00 03/29/25 20:06 Insulin Aspart (*Bkc) 100 Units/Ml SUB-Q 2 units HS ERICK Administration Protocol Insulin Glargine 30 units 03/29/25 09:00 03/30/25 12:18 Insulin Glargine (*Bkc) 100 Units/Ml SUB-Q Not Given QAM ERICK Latanoprost 1 drop 03/30/25 21:00 Latanoprost 0.005% Op Soln 2.5 Ml Btl RIGHT EYE HS ERICK Ofloxacin 1 drop 03/30/25 17:00 Ofloxacin 0.3% Ophth Soln 5 Ml Btl RIGHT EYE QID ERICK Ondansetron HCl 4 mg 03/29/25 08:52 03/30/25 07:45 Ondansetron Inj 4 Mg/2 Ml Vial IV PUSH 4 mg Q6H PRN Administration Nausea And Vomiting Perflutren Lipid Microsphere 0 ml 03/30/25 08:29 Perflutren Lipid Microspheres 1.5 Ml Vial Diluted To 10 Ml Total Volume IV PUSH 04/02/25 08:29 ONCE PRN adequate visualization Protocol Prednisolone Acetate 1 drop 03/30/25 17:00 Prednisolone Acetate 1% Ophth 5 Ml RIGHT EYE TID ERICK Timolol Maleate 1 drop 03/31/25 09:00 Timolol Maleate 0.5% Op Soln 5 Ml Bottle RIGHT EYE DAILY ERICK Vancomycin HCl 1 each 03/28/25 16:39 Vancomycin For Hemodialysis IVPB PRN PRN Vancomycin Protocol Radiology Results: ITS Impressions Chest/Abdomen/Pelvis CT 03/28/25 09:33 IMPRESSION: Inflammatory change of the bilateral renal calyces, right greater than left for which pyelonephritis is suspected, and for which clinical correlation is needed. Findings within the chest suggesting trace pulmonary edema with a bilateral upper lobe distribution. Foot X-Ray 03/28/25 14:09 IMPRESSION: No acute osseous abnormality of the right foot. Polyarticular osteoarthritic changes. Laceration in the plantar aspect of the foot opposite the calcaneus. Labs Labs: Laboratory Tests 03/30/25 05:23 03/30/25 05:23 Calcium 7.6 L Magnesium 2.1 Total Bilirubin 0.4 AST 17 ALT 9 Alkaline Phosphatase 156 H Total Protein 7.0 Albumin 3.0 L Random Vancomycin 15.2 Microbiology 03/29/25 08:13 Unspecified Urine Urine Culture Reflexed - Final 03/28/25 10:57 Blood Blood Culture - Preliminary Group B Streptococcus isolated 03/28/25 10:57 Blood Blood Culture - Preliminary Group B Streptococcus isolated 03/28/25 20:48 Blood Blood Culture - Preliminary 03/28/25 20:48 Blood Blood Culture - Preliminary
[2025-03-30] MEDS: VANCOMYCIN 750 MG/NS 250 ML 750 MG/250 ML BAG 250 MG IVPB (14:40)
[2025-03-30 16:42] LABS: Glucose Point of Care 222 mg/dl (65-105)
[2025-03-30] MEDS: OFLOXACIN 0.3% OPHTH SOLN 5 ML BTL 1 DROP RIGHT EYE ×2 (17:25→21:06)
[2025-03-30] MEDS: prednisoLONE ACETATE 1% OPHTH 5 ML 1 DROP RIGHT EYE (17:25)
[2025-03-30] MEDS: INSULIN ASPART (*BKC) 100 UNITS/ML SUB-Q (17:25)
[2025-03-30] MEDS: LATANOPROST 0.005% OP SOLN 2.5 ML BTL 1 DROP RIGHT EYE (21:06)
[2025-03-31] VITALS: PULSE 98
[2025-03-31] MEDS: LOPERAMIDE HCL 2 MG CAPSULE PO (00:24)
[2025-03-31] MEDS: fentaNYL CITRATE INJ (*CRX) 100 MCG/2 ML VIAL 50 MCG IV PUSH ×3 (00:27→08:45)
[2025-03-31 01:37] LABS: Toxigenic C. Diff NEGATIVE (NEGATIVE)
[2025-03-31 04:00] VITALS: PULSE 96
--- NOTE | 2025-03-31 05:18 | ECG_ITS ---
Test Date: 2025-03-31 06:02:41 Measurements Intervals [place] Rate: 91 P: 15 OR: 178 QRS: -13 QRSD: 98 T: -1 QT: 382 QTc: 471 Interpretive Statements SINUS RHYTHM NONSPECIFIC ST AND T-WAVE ABNORMALITY Compared to ECG 03/28/2025 07:43:31 NO SIGNIFICANT CHANGES Electronically Signed On 04-01-2025 11:00:20 CDT by Angely Galvez M.D.
[2025-03-31] MEDS: MORPHINE SULFATE (*CRX) 2 MG/ML INJ IV PUSH (05:31)
[2025-03-31 06:00] VITALS: BP 173/95; PULSE 93; RESP 20; TEMP 36.5; O2SAT 100
[2025-03-31 06:02] LABS: Basophils Percent Auto 0.3 % (0.2-1.2); Eosinophils Absolute Auto 0.4 K/mm3 (0-0.3); Eosinophils Percent Auto 3.5 % (0-4.4); Hemoglobin 10.3 g/dL (12.0-15.0); Immature Granulocyte Absolute 0.11 K/mm3 (0.00-0.031); Immature Granulocyte Percent A 0.9 % (0-0.5); Lymphocytes Absolute Auto 1.91 K/mm3 (0.9-3.2); Lymphocytes Percent Auto 15.9 % (18.3-44.2); Mean Corpuscular HGB Conc 29.4 g/dl (32-36); Mean Corpuscular Volume 95.1 fl (80-100); Mean Platelet Volume 10.4 fl (7.4-10.4); Monocytes Absolute Auto 1.2 K/mm3 (0.1-0.6); Monocytes Percent Auto 9.6 % (2.6-8.5); Neutrophils Absolute Auto 8.4 K/mm3 (1.3-6.7); Neutrophils Percent Auto 69.8 % (45.5-73.1); Platelet Count Result 320 k/mm3 (150-375); Red Blood Count 3.68 M/mm3 (4.2-5.4); Red Cell Distribution Width 14.1 % (11.5-14.5)
[2025-03-31 06:11] LABS: Alanine Aminotransferase 10 U/L (6-35); Alkaline Phosphatase 149 U/L (38-126); Anion Gap 8 mmol/L (4-12); Aspartate Amino Transferase 20 U/L (14-36); Bilirubin,Total 0.2 mg/dL (0.2-1.3); Blood Urea Nitrogen 14 mg/dL (7-17); Calcium 7.7 mg/dL (8.4-10.2); Carbon Dioxide 26 mmol/L (22-30); Chloride 102 mmol/L (98-107); Estimated CRCL calculation 25 ml/min; Estimated Glomerular Filt Rate 13; Glucose 250 mg/dL (65-110); Potassium 3.4 mmol/L (3.4-5.0); Sodium 136 mmol/L (137-145)
[2025-03-31 06:21] LABS: Troponin I < 0.012 ng/mL (0.000-0.034)
[2025-03-31 07:15] LABS: Anisocytosis 1+; Hypochromasia 1+; Platelet Estimate Adequate (Adequate)
[2025-03-31 07:56] LABS: Schistocytes None Seen
[2025-03-31 08:01] LABS: Glucose Point of Care 183 mg/dl (65-105)
[2025-03-31 08:28] LABS: Glucose Point of Care 227 mg/dl (65-105)
[2025-03-31] MEDS: APIXABAN 5 MG TABLET PO (08:41)
[2025-03-31] MEDS: TIMOLOL MALEATE 0.5% OP SOLN 5 ML BOTTLE 1 DROP RIGHT EYE (08:44)
[2025-03-31] MEDS: OFLOXACIN 0.3% OPHTH SOLN 5 ML BTL 1 DROP RIGHT EYE (08:45)
[2025-03-31] MEDS: prednisoLONE ACETATE 1% OPHTH 5 ML 1 DROP RIGHT EYE (08:45)
[2025-03-31] MEDS: INSULIN GLARGINE (*BKC) 100 UNITS/ML 30 UNITS SUB-Q (08:55)
[2025-03-31] MEDS: INSULIN ASPART (*BKC) 100 UNITS/ML SUB-Q (08:57)
[2025-03-31 10:37] VITALS: PULSE 93
[2025-03-31] MEDS: lisinopriL 20 MG TABLET PO (10:37)
[2025-03-31] MEDS: carvediloL 12.5 MG TABLET 25 MG PO (10:37)
[2025-03-31] MEDS: LINEZOLID 600 MG TABLET PO (10:38)
[2025-03-31 11:58] LABS: Glucose Point of Care 117 mg/dl (65-105)
--- NOTE | 2025-03-31 12:35 | P.PNNP_ITS ---
Progress Note: A&P Assessment and Plan (1) End stage renal disease: Code(s): N18.6 - End stage renal disease Status: Chronic Assessment and Plan: * HD tomorrow * continue Fri/Fri/Friday dialysis schedule while hospitalized * follow electrolytes, volume status, and clearance (2) Pyelonephritis: Code(s): N12 - Tubulo-interstitial nephritis, not specified as acute or chronic Status: Acute Assessment and Plan: * as suggested by admission CT scan * UA as noted is suggestive of infection as well * follow culture data - negative to date * on antibiotics (3) Bacteremia: Code(s): R78.81 - Bacteremia Status: Resolved Assessment and Plan: * as noted by blood cultures: * 03/28 (at 10:57) - Group B Streptococcus * interestingly, blood cultures done about a week ago (ER visit) were also positive: * 03/20 - Corynebacterium species, Staphylococcus epidermidis, and Enterococcus faecalis * unclear if she received any treatment/therapy for 03/20 blood cultures * follow repeat cultures * 03/28 (at 20:18) - negative to date * on antibiotics (4) Anemia: Code(s): D64.9 - Anemia, unspecified Status: Chronic Assessment and Plan: * due to ESRD and acute illness * Retacrit with HD * follow trend of H/H (5) Hypertension: Code(s): I10 - Essential (primary) hypertension Status: Chronic Assessment and Plan: * reasonably control * soft BP on admission * BP medications were on hold * slowly resume home BP medications as tolerated * follow trend of hemodynamics (6) Diabetes mellitus: Code(s): E11.9 - Type 2 diabetes mellitus without complications Status: Chronic Assessment and Plan: * poor control at baseline (A1c > 14) * follow accu-cheks * glycemic control per hospitalist Will continue to follow. L Subjective Date/time seen: 03/31/25 12:35 Interval history: Follow-up for end stage renal disease on hemodialysis. Tolerated dialysis treatment yesterday but ended treatment early (only received ~ 2 hours) due to significant complaints of neck and back pain; no apparent distress noted at the time of my visit; no issues/events overnight or earlier this morning. Exam 2 Narrative: General: WD/WN female in NAD Heart: normal S1 and S2; no rub Lungs: clear to auscultation Abdomen: soft, nontender, nondistended, positive bowel sounds Extremities: no cyanosis or clubbing; no edema Skin: warm and intact Objective Data Vital Signs Vital Signs: Vital Signs Temp Pulse Resp BP Pulse Ox O2 Del Method O2 Flow Rate 03/31/25 10:37 93 03/31/25 06:00 97.7 F 93 20 173/95 H 100 03/31/25 04:00 96 03/31/25 00:00 98 03/30/25 21:50 98.4 F 94 20 157/81 H 100 03/30/25 21:02 98 03/30/25 21:02 100 Nasal Cannula 1 03/30/25 16:00 86 Intake/Output Intake/Output: Intake & Output 03/28/25 03/29/25 03/30/25 03/31/25 23:59 23:59 23:59 23:59 Intake Total 3080 470 1362 480 Output Total 2600 618 Balance 3080 -2130 744 480 Meds/Results Medications: Active Medications Generic Name Dose Route Start Trade Name Freq PRN Reason Stop Acetaminophen 650 mg 03/28/25 23:46 Acetaminophen 325 Mg Tablet PO Q6H PRN Mild Pain (1-3) or Fever Apixaban 5 mg 03/28/25 23:50 Apixaban 5 Mg Tablet PO Q12HR ERICK Dextrose 12.5 gm 03/28/25 23:46 Dextrose 50% 25 Gm/50 Ml Syringe IV PUSH PRN PRN Hypoglycemia Protocol Diphenhydramine HCl 25 mg 03/29/25 23:57 Diphenhydramine Hcl Cap 25 Mg Capsule PO Q6H PRN Itching Fentanyl Citrate 50 mcg 03/29/25 13:42 Fentanyl Citrate Inj (*Crx) 100 Mcg/2 Ml Vial IV PUSH Q2H PRN Pain Rated 7-10 Glucagon 1 mg 03/28/25 23:46 Glucagon For Inj 1 Mg Vial IM PRN PRN Hypoglycemia Protocol Glucose 15 gm 03/28/25 23:46 Glucose Oral Gel 15 Gm Of Glucse In 37.5 Gm Tube PO PRN PRN Hypoglycemia Protocol Dextrose 1,000 mls @ 100 mls/hr 03/28/25 23:46 Dextrose 5% 1,000 Ml IVPB PRN PRN Hypoglycemia Protocol Albumin Human 50 mls @ 999 mls/hr 03/29/25 07:16 Albutein IVPB 06/26/25 07:15 Q10M PRN HYPOTENSION Insulin Aspart 4 - 8 units 03/29/25 08:00 Insulin Aspart (*Bkc) 100 Units/Ml SUB-Q TIDWM ERICK Protocol Insulin Aspart 2 - 4 units 03/29/25 21:00 Insulin Aspart (*Bkc) 100 Units/Ml SUB-Q HS ERICK Protocol Insulin Glargine 30 units 03/29/25 09:00 Insulin Glargine (*Bkc) 100 Units/Ml SUB-Q QAM ERICK Latanoprost 1 drop 03/30/25 21:00 Latanoprost 0.005% Op Soln 2.5 Ml Btl RIGHT EYE HS ERICK Ofloxacin 1 drop 03/30/25 17:00 Ofloxacin 0.3% Ophth Soln 5 Ml Btl RIGHT EYE QID ERICK Ondansetron HCl 4 mg 03/29/25 08:52 Ondansetron Inj 4 Mg/2 Ml Vial IV PUSH Q6H PRN Nausea And Vomiting Perflutren Lipid Microsphere 0 ml 03/30/25 08:29 Perflutren Lipid Microspheres 1.5 Ml Vial Diluted To 10 Ml Total Volume IV PUSH 04/02/25 08:29 ONCE PRN adequate visualization Protocol Prednisolone Acetate 1 drop 03/30/25 17:00 Prednisolone Acetate 1% Ophth 5 Ml RIGHT EYE TID ERICK Timolol Maleate 1 drop 03/31/25 09:00 Timolol Maleate 0.5% Op Soln 5 Ml Bottle RIGHT EYE DAILY ERICK Vancomycin HCl 1 each 03/28/25 16:39 Vancomycin For Hemodialysis IVPB PRN PRN Vancomycin Protocol Radiology Results: ITS Impressions Chest/Abdomen/Pelvis CT 03/28/25 09:33 IMPRESSION: Inflammatory change of the bilateral renal calyces, right greater than left for which pyelonephritis is suspected, and for which clinical correlation is needed. Findings within the chest suggesting trace pulmonary edema with a bilateral upper lobe distribution. Foot X-Ray 03/28/25 14:09 IMPRESSION: No acute osseous abnormality of the right foot. Polyarticular osteoarthritic changes. Laceration in the plantar aspect of the foot opposite the calcaneus. Labs Labs: Laboratory Tests 03/31/25 05:49 03/31/25 05:49 Calcium 7.7 L Magnesium 2.0 Total Bilirubin 0.2 AST 20 ALT 10 Alkaline Phosphatase 149 H Troponin I < 0.012 Total Protein 7.0 Albumin 3.0 L Microbiology 03/28/25 10:57 Blood Blood Culture - Final Group B Streptococcus isolated 03/29/25 08:13 Unspecified Urine Urine Culture Reflexed - Final
--- NOTE | 2025-03-31 12:59 | PM.DS ---
DS: Admitting Diagnosis Discharge Date 03/31/25 Admitting Diagnosis Nausea, vomiting, headache. DS: Discharge Diagnosis Discharge Diagnosis (1) Sepsis: Code(s): A41.9 - Sepsis, unspecified organism Status: Acute (2) Pyelonephritis: Code(s): N12 - Tubulo-interstitial nephritis, not specified as acute or chronic Status: Acute DS: Summary Hospital Course Hospital Course: This is an unfortunate 34-year-old female with multiple medical conditions including historically poorly controlled insulin-dependent type 2 diabetes mellitus with a hemoglobin A1c today of greater than 14%, diabetic neuropathy, diabetic nephropathy, end-stage renal disease on hemodialysis, blindness secondary to glaucoma, hypertension, hyperlipidemia, diastolic congestive heart failure, suspected obstructive sleep apnea with positive ApneaLink, deep venous thrombosis on chronic 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, and multidrug resistant infections including MRSA, Klebsiella, escherichia coli, Enterococcus faecalis, and others who presented to the emergency via EMS from home with complaints of nausea, vomiting, and body aches. She has not felt well for several days with symptoms to include fatigue, generalized headache, body aches, nausea, vomiting, and loose stools which have resolved. In the ED: Vital signs on arrival include a temperature of 98.2?, blood pressure 120/64, pulse 109, respiratory 20, SpO2 94%. Labs were significant for WBC count of 21.3, hemoglobin 9.8, carbon dioxide 18, anion gap 10, BUN 25, creatinine 5.87, glucose 706, beta hydroxybutyrate 0.96, hemoglobin A1c > 14.0, CRP 20.2, procalcitonin 23.5, lactic acid 1.4. ABG showed a pH of 7.304, pCO2 32.8, PO2 67.5, HC03 15.9. She tested negative for influenza, RSV, COVID, and group A strep. CT of the chest, abdomen, and pelvis showed inflammatory change of the bilateral renal calices, right greater than left, for which pyelonephritis is suspected. She has not been able to produce a urine specimen and refuses catheterization. Findings within the chest suggestive of trace pulmonary edema with bilateral upper lobe distribution. Blood pressure did drop somewhat and she was given 3 L crystalloid bolus and IV insulin with improvement. She was started on ceftriaxone for suspected UTI though during infusion she clean planed of itchiness and felt as though her throat was swelling. Antibiotic was stopped and she was given diphenhydramine and epinephrine with improvement. She has since been started on aztreonam and vancomycin for broad-spectrum coverage for apparent sepsis without a definite source at this time. Patient as managed for Pyelonephritis and sepsis. Blood culture grew Group B strept and she also has previous culture drawned from [facility] on the 03/20 which grew E fecalis. Patient has nomurmurs on exam and ECHO showed normal ventricular and valvular functions. Patient was discharged today on 14 days course of Linezolid after being on Vanc IV inpatient. Patient will continue dialysis outpatient. [facility]phrology was consulted [facility]n [facility] Time Spent with Patient Time attestation: Total time spent providing and/or coordinating discharge services: DS: Data Data Completed and Pending Labs on day of discharge: Labs from last 24 hours 03/31/25 03/31/25 03/31/25 11:55 08:19 05:49 WBC 12.0 H RBC 3.68 L Hgb 10.3 L Hct 35.0 L MCV 95.1 MCH 28.0 MCHC 29.4 L RDW 14.1 Plt Count 320 MPV 10.4 Immature Gran % (Auto) 0.9 H Neut % (Auto) 69.8 Lymph % (Auto) 15.9 L Sandoval % (Auto) 9.6 H Eos % (Auto) 3.5 Baso % (Auto) 0.3 Lymph # (Auto) 1.91 Sandoval # (Auto) 1.2 H Eos # (Auto) 0.4 H Baso # (Auto) 0.0 Abs Immat Gran (auto) 0.11 H Absolute Neuts (auto) 8.4 H Absolute Nucleated RBC 0.000 Band Neutrophils % Not Reportable Nucleated RBC % 0.0 Platelet Estimate Adequate Hypochromasia 1+ Anisocytosis 1+ Schistocytes None seen Sodium 136 L Potassium 3.4 Chloride 102 Carbon Dioxide 26 Anion Gap 8 BUN 14 D Creatinine 3.87 H Estim Creat Clear Calc 25 Estimated GFR 13 L Glucose 250 H POC Capillary Glucose 117 H 227 H Calcium 7.7 L Magnesium 2.0 Total Bilirubin 0.2 AST 20 ALT 10 Alkaline Phosphatase 149 H Troponin I < 0.012 Total Protein 7.0 Albumin 3.0 L C. difficile (PCR) 03/31/25 03/30/25 03/30/25 00:40 20:11 16:34 WBC RBC Hgb Hct MCV MCH MCHC RDW Plt Count MPV Immature Gran % (Auto) Neut % (Auto) Lymph % (Auto) Sandoval % (Auto) Eos % (Auto) Baso % (Auto) Lymph # (Auto) Sandoval # (Auto) Eos # (Auto) Baso # (Auto) Abs Immat Gran (auto) Absolute Neuts (auto) Absolute Nucleated RBC Band Neutrophils % Nucleated RBC % Platelet Estimate Hypochromasia Anisocytosis Schistocytes Sodium Potassium Chloride Carbon Dioxide Anion Gap BUN Creatinine Estim Creat Clear Calc Estimated GFR Glucose POC Capillary Glucose 183 H 222 H Calcium Magnesium Total Bilirubin AST ALT Alkaline Phosphatase Troponin I Total Protein Albumin C. difficile (PCR) Negative Preliminary micro results at discharge 03/28/25 10:57 Blood Culture - Preliminary Blood Group B Streptococcus isolated 03/28/25 20:48 Blood Culture - Preliminary Blood 03/28/25 20:48 Blood Culture - Preliminary Blood Discharge Plan Discharge Attending physician on discharge: Ezra Siegel Consulting providers: Lars Millan Discharging Clinician: Ezra Siegel Anticipated Discharge Date/Time: 03/31/25 12:57 Patient Disposition: Home Activity: as tolerated Diet: as tolerated Patient Instructions: Antibiotic Form Patient Language: Tajik Stand Alone Forms: General Discharge Information Follow-up/Referrals: Darnell,TOÑITO Luong [Primary Care Provider] - (F/u with PCP in 3-5 days ) Lars Millan MD [Physician] - (F/u with Nephrology as instructed ) Discharge Medications: New linezolid 600 mg Tablet 600 mg PO Q12HR 14 Days Qty: 28 0RF Continued carvedilol 12.5 mg tablet 25 mg PO Q12H amlodipine 10 mg tablet 10 mg PO DAILY lisinopril 20 mg Tablet 20 mg PO QAM 30 Days Qty: 30 0RF furosemide 40 mg Tablet 40 mg PO DAILY (DME) blood-glucose meter [OneTouch Verio Flex meter] [facility] Qty: 1 0RF Rx Instructions: May substitute to in-stock meter and/or covered by insurance. Use As Directed (DME) OneTouch Verio test strips Strip Qty: 1 0RF Rx Instructions: May substitute to in-stock and/or covered by insurance strips. Use As Directed (DME) pen needle, diabetic 32 gauge x 5/32 Needle Qty: 1,200 0RF Rx Instructions: As Directed (DME) lancets [OneTouch Delica Plus Lancet] 30 gauge misc Qty: 1 0RF Rx Instructions: May substitute to in-stock and/or covered by insurance lancets. Use As Directed insulin glargine [Lantus Solostar U-100 Insulin] 100 unit/mL (3 mL) insulin pen 30 unit subcut QAM Qty: 15 0RF insulin aspart U-100 100 unit/mL (3 mL) insulin pen 1 sliding scale dose subcut USEASDIRECTD Qty: 15 0RF Rx Instructions: Rx Instructions: <70-Follow Hypoglycemic protocol 70-200: No addition Insulin 201-250: 3 U 251-300: 4 U 301-350: 5 U 351-400: 6 U >400: Call MD Hull 5 mg tablet 5 mg PO BID Date of admission: 03/29/25 10:37 Primary Care Provider: DarnellCherise Admitting Provider: Stoney Mcclellan Attending physician on admission: Stoney Mcclellan Condition: Stable
== END 2025-03-31 13:44 | disposition home or self-care (01) | DRG 871 ==
LOC: ANHED 08:44 → ANHIMU 16:25 → ANH3MED 03-31 10:37 → ANHIMU 04-01 13:03
PROVIDERS: Emergency Medicine; General Practice; Internal Medicine Nephrology; Physician Assistant; Student in an Organized Health Care Education/Training Program; Admitting Provider Family Medicine; Emergency Provider Student in an Organized Health Care Education/Training Program; PCP Physician Assistant; Visit Provider Internal Medicine
DX: A40.1 Sepsis due to streptococcus, group B (principal); N18.6 End stage renal disease; N12 Tubulo-interstitial nephritis, not specified as acute or chronic; I13.2 Hypertensive heart and chronic kidney disease with heart failure and with stage 5 chronic kidney disease, or end stage renal disease; L97.419 Non-pressure chronic ulcer of right heel and midfoot with unspecified severity; I50.32 Chronic diastolic (congestive) heart failure; I95.9 Hypotension, unspecified; E11.22 Type 2 diabetes mellitus with diabetic chronic kidney disease; E11.621 Type 2 diabetes mellitus with foot ulcer; E11.40 Type 2 diabetes mellitus with diabetic neuropathy, unspecified; E78.5 Hyperlipidemia, unspecified; D63.1 Anemia in chronic kidney disease; T36.1X5A Adverse effect of cephalosporins and other beta-lactam antibiotics, initial encounter; H40.9 Unspecified glaucoma; H54.7 Unspecified visual loss; G47.33 Obstructive sleep apnea (adult) (pediatric); Z20.822 Contact with and (suspected) exposure to COVID-19; Z79.01 Long term (current) use of 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; Z79.4 Long term (current) use of insulin; Z99.2 Dependence on renal dialysis; Z89.612 Acquired absence of left leg above knee
CPT/HCPCS: 36415; 36600; 71250; 73630; 74176; 80048; 80053; 80202; 81001; 82010; 82375; 82803; 82805; 82948; 83036; 83050; 83605; 83735; 84100; 84145; 84484; 84703; 85018; 85025; 85055; 86140; 86706; 87040; 87086; 87181; 87340; 87493; 87637; 87641; 87651; 93005; 93306; 96361; 96365; 96372; 96375; 99212; 99285; A9270; G0257; G0378; G0463; J0171; J0457; J0696; J1200; J1644; J1815; J2270; J2405; J3010; J3370; J7030; J7120; Q5105

== ENCOUNTER 2025-06-06 09:33 | Emergency (ER) | payer MEDICARE, MEDICAID, SELFPAY ==
[2025-06-06] VITALS (14 sets, daily range): BP systolic 131–163; BP diastolic 89–106; PULSE 88–101; RESP 16–26; TEMP 36.9; O2SAT 97–100
--- NOTE | ~2025-06-06 | XR_ITS ---
XR chest 2V 06/06/2025 10:43 Indication: Midsternal chest pain Procedure: 2 View chest Comparison: Comparison to multiple prior studies sequentially, with oldest reviewed study dated 06/2025. Findings: Developing left upper lobe pneumonia. Cardiomegaly. Elevated right diaphragm. Central venou s catheter tips in the SVC. Impression: 1: Developing left upper lobe pneumonia. Reviewed, dictated and finalized at location A. Impression: 1: Developing left upper lobe pneumonia.
--- NOTE | 2025-06-06 09:35 | ECG_ITS ---
Test Date: 2025-06-06 09:40:58 Measurements Intervals [place] Rate: 101 P: 33 WA: 171 QRS: -30 QRSD: 80 T: 5 QT: 344 QTc: 447 Interpretive Statements SINUS TACHYCARDIA LEFT ATRIAL ENLARGEMENT POSSIBLE LEFT VENTRICULAR HYPERTROPHY BORDERLINE R WAVE PROGRESSION, ANTERIOR LEADS BORDERLINE ST-T WAVE ABNORMALITY- ANT/INF LEADS BASELINE ARTIFACT- I, II, III, AVR, AVL, AVF BORDERLINE ECG Compared to ECG 03/31/2025 06:02:41 HEART RATE HAS INCREASED Electronically Signed On 06-06-2025 11:00:49 CDT by Azar Cook D.O.
--- OUTSIDE RECORDS SUMMARY | 2025-06-06 09:45 | XMS_ITS | Referral Summary ---
Author Organization [facility] Address [address] [place] [address] Care Team Providers Care Supervisor Wool Shearing Name Role Phone Cherise Patrick Primary Care Provider [phone] Encounters Date Type Department Care Team Description 04/20/2025 Telephone [facility] Ophthalmology [address] [facility] [place] [address] Sumi Gupta MD from Last 3 Months Allergies No known active allergies Medications furosemide (LASIX) 40 mg tabletIndicati ons:hypertensi on Take 1 tablet (40 mg total) by mouth senior qualitative researcher before breakfast Active carvediloL (COREG) 12.5 mg tabletIndicati ons:hypertensi on Take 1 tablet (12.5 mg total) by mouth 2 (two) times a day with meals Active amLODIPine (NORVASC) 10 mg tabletIndicati ons:hypertensi on Take 1 tablet (10 mg total) by mouth senior qualitative researcher before breakfast Active dulaglutide (TRULICITY) 0.75 mg/0.5 [...] 1 tablet (20 mg total) by mouth senior qualitative researcher before breakfast Active gabapentin (NEURONTIN) 300 mg [...] a day 3 mL 2 5 Active latanoprost (XALATAN) 0.005 % ophthalmic [...] (800 mg total) by mouth 4 Active dorzolamide-ti moloL (COSOPT) 22.3-6.8 mg/mL ophthalmic solution Administer 1 drop into the right eye 2 (two) times a day 10 mL 11 5 Active brimonidine (ALPHAGAN) 0.2 % ophthalmic solution Administer 1 drop into the right eye 2 (two) times a day 10 mL 11 5 025 Active Active Problems Problem Noted Date Diagnosed [...] eye. 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 Never 04/16/2023 Do you belong to any clubs o r organizations such as evangelical groups, unions, fraternal or athletic groups, or [...] on file Legal Sex Female 8:53 PM HUB INVENTORY SPECIALIST Gender Identity Female 12/23/2024 9:35 AM HUB INVENTORY SPECIALIST Sexual Orientation Straight 12/23/2024 9: 35 AM HUB INVENTORY SPECIALIST Last Filed Vital Signs Vital Sign Reading [...] 170.2 cm (5' 7) 12/23/2024 9:15 AM HUB INVENTORY SPECIALIST Body Mass Index 38.84 12/23/2024 9:15 AM HUB INVENTORY SPECIALIST Plan of Treatment Not on file Medical Devices Implanted Type Area Parking Meter Collector Device Identifier Shelf Expiration Date Model / Serial / Lot [employer] Lens Iol [id number] [employer] [id number] - [id number] - [id number] Implanted:Qty: 1 on 01/10/2025 by Bita Vega MD at [facility] Lens Right: Eye [employer] 06/14/2026 CCA0T0.225 / [id number] Procedures Procedure Name Priority Date/Time Associated Diagnosis Comments EGFR Routine 09/23/2023 5:39 PM HUB INVENTORY SPECIALIST ALBUMIN CREATININE RATIO, URINE Routine 04/17/2023 4:23 PM CDT LIPID PANEL Routine 04/17/2023 1:03 PM CDT HEMOGLOBIN A1C Routine 04/16/2023 7:06 AM CDT from Last 3 Months or Most Recently Relevant to Health Maintenance Results * eGFR (09/23/2023 5:39 PM HUB INVENTORY SPECIALIST) eGFR 22 mL/min/1. 73 m2 DWIGHT BRADEN [...] Inclusion of Race in Diagnosing Kidney Disease, KRISSYN 2020). The CKD-EPI equation should not be used for patients with unstable renal function and has not been validated in children and those over 70. Current interpretive data was last reviewed 2021. Blood 09/23/2023 5:39 PM HUB INVENTORY SPECIALIST 09/23/2023 8:31 PM HUB INVENTORY SPECIALIST Tyrel Simmons MD LAB BLOOD ORDERABLES Final Result Performing Organization Address [facility] Co de Phone Number DWIGHT [phone] Department [place] [address] * (ABNORMAL) Albumin Creatinine Ratio, Urine (04/17/2023 [...] ORDERABLES Final Re sult Performing Organization Address [facility] Co de Phone Number DWIGHT [phone] Department [place] [address] * (ABNORMAL) Lipid panel (04/17/2023 1:03 PM [...] ORDERABLES Final Re sult Performing Organization Address [facility] de Phone Number [facility] [address] [place] [address] * (ABNORMAL) Hemoglobin A1c (04/16/2023 7:06 AM CDT) Hgb A1C 6.5(H) 4.0 - 5.6 % DWIGHT Estimated Average Glucose 140 mg/dL DWIGHT Comment: The ADA recommends reporting an estimated Average Glucose (eAG) with all Hemoglobin A1c results using the equation derived from a study of 507 normal and diabetic adults. Minority populations were underrepresented and children were not included. (Diabetes Care 31:0833-2950, 2008). The eAG is not equivalent to a fasting glucose. Blood 04/16/2023 7:06 AM CDT 04/16/2023 7:45 AM CDT Amilcar Estrada MD LAB BLOOD ORDERABLES Final Re sult Performing Organization Address [facility] Co de Phone Number [facility] [address] [facility] [facility] [place] [address] from Last 3 Months or Most Recently Relevant to Health Maintenance Insurance MEDICARE [employer] MEDICARE Advance Directives For more information, please contact: [phone] Documents on File Type Date Recorded Patient X Ray Equipment Tester Expl anation ADVANCE DIRECTIVE 04/23/2023 12:11 PM Breana r of Crm Consultant-Medical ADVANCE DIRECTIVE 04/23/2023 12:11 PM POLS T [...] Healthcare Agent Relationship Communication Kianna Nunez [facility] Health Care Agent [email or web address]Current Media Suellen Resendiz [facility] Health Care Agent [email or web address] Care Teams Supervisor Wool Shearing Relationship Specialty Start Date End Date Cherise Patrick PA [address] [place] [id number] PCP - General Physician Head School Custodian 02/20/23
--- OUTSIDE RECORDS SUMMARY | 2025-06-06 09:45 | XMS_ITS | Encounter Summary ---
Author Organization [facility] Address [address] [place] [address] Care Team Providers Care Global Ceo Name Role Phone Cherise Patrick PA-C Primary Care Provider [phone] Reason for Visit * Reason Onset Date Comments Hospital Admission 04/24/2023 Encounter Details Date Type Department Care Team (Late st Contact Info) Description 04/24/2023 Telephone [facility] [address] [place] [address] Sameer Navarro MD [facility] [address] Hospital Admission Social History Tobacco [...] and heating? Not hard at all 04/28/2023 [facility] [place] of Occupat ional Health - Occupational Stress [...] slept in a half-way (including now)? No 04/28/2023 Comments No Sex and Gender Information Value Date Recorded Sex Assigned at Not on file Legal Sex Female 6:46 AM MILLING OPERATOR Gender Identity Not on file Sexual [...] Navarro MD - 04/24/2023 12:21 PM CDT [facility] Outside Hospital Transfer Call Documentation Date:04/24/2023 Time:12:21 PM Patient: Gay Canales : 1990 Referring Facility Name: [facility] Reason for Transfer: Right foot debridement vs BKA Brief Description (including applicable labs, imaging, consultations): 32 year old??female??with past medical history of DM 2, HTN, HFpEF, ??morbid obesity, MDD , status post left AKA in November, at [facility] when she presented with necrotizing fasciitis and [...] now. Patient needs on arrival to [facility]: Medicine admissions resident (ask radiagraph operator for Medicine Admission) to be notified of arrival. Consultation to (N/A if blank): Vascular/general surgery I have accepted this patient for transfer to [facility]. If patient awaiting bed for >24hours, an [...] documented as of this encounter Care Teams Global Ceo Relationship Specialty Start Date End Date Cherise Patrick PA-C [address] [place] [phone] PCP - General 02/23/24 documented as of this encounter
--- OUTSIDE RECORDS SUMMARY | 2025-06-06 09:45 | XMS_ITS | Patient Health Record ---
Author Organization [facility] Address [address] [place] [address] Care Team Providers Care Energy Director Name Role Phone Yessi Shannon Primary Care Provider Reason For Referral No Information Social History Sex Assigned At : Social History Observation Description Sex Assigned At Female Encounters Encounter Location Date Provider Diagnosis [address] [place] [address] 01/26/2025 Yessi Shannon Plan Of Treatment No Information Insurance Providers Payer Name Payer Address Payer Phone Subscriber Number Group Number Insured Name Patient Relationship to Insured Coverage Start Date Coverage End Date [employer] [address] [place] [address] [id number] Gay Canales Self - patient is the insured 5 [employer] [address] [place] [address] [id number] Gay Canales Self - patient is the insured 5
--- OUTSIDE RECORDS SUMMARY | 2025-06-06 09:45 | XMS_ITS | Clinical Summary ---
Author Organization [facility] Address [address] [place] [address] Care Team Providers Care Roller Machine Operator Name Role Phone None, Provider MD [...] Morbid obesity 07/31/2022 Acute hypoxemic respiratory failure ([facility]) 07/29/2022 Social History Tobacco Use Types Packs/Day [...] 11:07 PM CDT Height 172.7 cm (5' 8) 08/20/2022 11:07 PM CDT Body Mass Index [...] 03/03/23 +MRSA Right leg 07/30/2022 03/03/2023 Insurance [facility] [employer] [address] C/O PROVIDER SERVICES TOÑITO RAMIREZ [id number] JUANA Advance Directives * Full Code (Latest Code Status on File) Date Activated Date Inactivated Comments 07/31/2022 11:49 PM 08/07/2022 11:08 PM * Full Code Date Activated Date Inactivated Comments 07/29/2022 9:44 PM 07/31/2022 11:49 PM Care Teams Roller Machine Operator Relationship Specialty Start Date End Date None, Provider, PCP - General 07/29/22
--- OUTSIDE RECORDS SUMMARY | 2025-06-06 09:45 | XMS_ITS | Clinical Summary ---
Author Organization [facility] Address [address] [place] [address] Care Team Providers Care Svp Marketing Name Role Phone Cherise Patrick PA-C Primary Care Provider Source Comments [facility],non-owned Affiliates and Associated Physician Practices is amultiple site organization consisting of ambulatory clinics and hospital sitesin [place], [place] and [place]. This disclosure is being madepursuant to the Care Everywhere program and may not contain all information available regarding this patient. Last updated 18.[facility] Allergies No known active allergies Medications * [...] Reported on 08/27/2024 Blood Glucose Monitoring Suppl (SmartKem Verio Reflect) w/Device KITIndications: CALL AUSTYN WHEN [...] Encounters Date Type Department Care Team Description 03/18/2025 12:05 PM CDT - 03/18/2025 4:25 PM CDT Hospital Encounter [facility] OP [address] [place] [address] Artie Harmon MD [facility] Radiology Discharge Disposition: Home or Self Care 03/16/2025 Orders Only [facility] [address] [place] [address] Artie Harmon MD ESRD (end stage renal [...] Date Recorded PHQ2 TOTAL SCORE 0 06/10/2023 [facility] - Occupational Stress [...] a skilled nursing (including now)? No 07/26/2024 Comments No Sex and Gender Information Value Date Recorded Sex Assigned at Not on file Legal Sex Female 6:46 AM INSPECTOR FLOOR Gender Identity Not on file Sexual Orientation [...] Done Comments MEDICARE AWV 12 MONTHS 1992 HEPATITIS B VACCINE (1 of 1 - Risk Dialysis 4-dose series) 03/06/1995 03/06/1994, 07/27/1993, 06/01/1993 HPV VACCINE (3 - 3-dose series) 10/25/2008 06/24/2008, 04/25/2008 PNEUMOCOCCAL VACCINE (1 of 2 - PCV) 2011 PAP SMEAR 2013 DIABETES-FOOT EXAM WITH MONOFILAMENT 12/03/2022 COVID-19 VACCINE (1 - season) 2024 DEPRESSION SCREENING 11/03/2024 06/10/2023, 06/10/2023, 04/24/2023 DIABETES-HGB A1C 02/26/2025 08/28/2024, , 02/23/2024, Additional history exists INFLUENZA VACCINE (#1) 2025 DIABETES RETINOPATHY SCREENING 02/24/2026 02/24/2025, 11/01/2024 [...] this topic Medical Devices Implanted Type Area Aircraft Layout Worker Device Identifier Shelf Expiration Date Model / Serial / Lot Kit Durathane Drflw Embosafe Chrnc Dlys Implanted:Qty: 1 on 02/25/2024 by Artie Harmon MD at [facility] Right: Chest [employer] 07/03/2026 [id number] / / [id number] Description:IMPLANTED BY DR. JUAN Gill Durathane Drflw Embosafe Chrnc Dlys Implanted:Qty: 1 on 08/06/2024 by Artie Harmon MD at [facility] Left: Chest Wall [employer] 07/03/2026 [id number] / / [id number] Description:Implanted in the left chest wall, via the [facility], by Dr. Candy Harmon. Kit Durathane Drflw Embosafe Chrnc Dlys Implanted:Qty: 1 on 03/18/2025 by Rio Monk MD at [facility] [employer] 12/03/2026 [id number] / / [id number] Procedures Procedure Name Priority Date/Time Associated Diagnosis [...] None. Contrast: None Complications: None immediate PROCEDURE: Sales Coach: Rio Monk Procedures performed: 1. Replacement of [...] evaluation, please review the evaluation forms in [facility]. For details on monitored clinical parameters during the intra-service sedation time, please review the procedure nurse documentation in [facility]. The patient tolerated procedure without difficulty. I was present for the entire procedure. > Interpreting Provider: Rio Monk MD on 03/20/2025 7:59 AM Procedure Note Rio Monk MD - 03/20/2025 PROCEDURE: IR CENTRAL LINE INSERT TUNNEL DATE/TIME OF EXAM: 03/18/2025 3:43 PM CLINICAL INFORMATION: None relevant/not provided if blank. Indication: N18.6: ESRD (end stage renal disease) ([facility]) Additional History: COMPARISON: None. FLUOROSCOPY DOSE: mGy Reference air kerma (ka,r). MEDICATIONS: None. Contrast: None Complications: None immediate PROCEDURE: Sales Coach: Rio Monk Procedures performed: 1. Replacement of [...] patient evaluation, please reviewthe evaluation forms in [facility]. For details on monitored clinical parameters during the intra-service sedation time, please review the procedurenurse documentation in [facility]. The patient tolerated procedure without difficulty. I was present for the entire procedure. > Interpreting Provider: Rio Monk MD on 03/20/2025 7:59 AM DougTiana Harmon MD IR ORDERABLES Final Result * (ABNORMAL) GLUCOSE - POINT OF CARE (03/18/2025 1:39 PM CDT) Glucose WB/POC 382(H) 70 - 99 mg/dL 03/21/2025 7:08 AM CDT [facility] Specimen Type Venous 03/21/2025 7:08 AM CDT [facility] Blood BLOOD SPECIMEN / Unknown 03/18/2025 1:39 PM CDT 03/21/2025 7:08 AM CDT Artie Harmon MD LAB - POINT OF CARE ORDERABLES F inal Result Performing Organization Address [facility] [place] [facility] Co de Phone Number [address] [address], [facility] [phone] * HCG BETA BLOOD QUANTITATIVE (03/18/2025 1:38 PM CDT) Beta-hCG Total Quantitative <3 mIU/mL 03/18/2025 2:38 PM CDT [facility] Comment: HCG Numeric Result Interpretation: Non- [...] CHEMISTRY ORDERABLES Final Result Performing Organization Address [facility] Co de Phone Number [address] [address], [facility] [phone] * (ABNORMAL) HEMOGLOBIN A1C (08/28/2024 8:29 PM CDT) Hemoglobin A1c 7.4(H) <=5.6 % 08/29/2024 8:36 AM CDT [facility] Estimated Average Glucose 166 mg/dL 08/29/2024 8:36 AM CDT [facility] Comment: HbA1c Interpretation: Normal : < 5.7% Pre-diabetes: 5.7-6.4% Diabetes: Equal to or greater than 6.5% Test results diagnostic of diabetes should be repeated for confirmation. Treatment target values recommended by ADA and other clinical organizations should be used to evaluate metabolic control in patients. Reference: [place] Diabetes Association, Standards of Care in Diabetes [...] ORDERABLES Fin al Result Performing Organization Address City/[facility]/ZIP Co de Phone Number [address] [address], [place] [phone] * HEPATITIS C AB SCREEN RFLX NAAT QUANT (05/31/2024 6:38 PM CDT) Pathologist [facility] Hepatitis C Antibody Non-react talia Non-reac tive 05/31/2024 7:33 PM CDT [facility] Comment:Hepatitis C Antibody screen indicates no [...] ORDERAB LES Final Result Performing Organization Address [facility]/ZIP Co de Phone Number [address] [address], [place] [phone] * HIV-1 HIV-2 ANTIBODY + HIV P24 AG PANEL (02/24/2024 8:57 AM CDT) Pathologist [facility] HIV Antigen/Antibod y 1 & 2 Non-reacti ve Non-react talia 02/24/2024 10:03 AM CDT [facility] Comment:No Laboratory eviden ce of HIV infection. Blood BLOOD SPECIMEN / Unknown Lab Venipuncture / Unknown 02/24/2024 8:57 AM CDT 02/24/2024 9:00 AM CDT us Rafa Patel MD LAB - CHEMISTRY ORDERABLES Final Result [facility] [address] [place] [address], [facility] [phone] from Last 3 Months or Most Recently [...] 2:41 AM 05/23/2023 7:59 PM Care Teams Svp Marketing Relationship Specialty Start Date End Date Cherise Patrick PA-C [address] [place] [id number] PCP - General 02/23/24
--- OUTSIDE RECORDS SUMMARY | 2025-06-06 09:45 | XMS_ITS | Clinical Summary ---
Author Organization [facility] Address [address] [place] [address] Care Team Providers Care Escort Patients Name Role Phone Cherise Patrick Primary Care Provider [phone] Allergies No known active allergies Medications furosemide (LASIX) 40 mg tabletIndicati ons:hypertensi on Take 1 tablet (40 mg total) by mouth meteorologist liaison before breakfast Active carvediloL (COREG) 12.5 mg tabletIndicati ons:hypertensi on Take 1 tablet (12.5 mg total) by mouth 2 (two) times a day with meals Active amLODIPine (NORVASC) 10 mg tabletIndicati ons:hypertensi on Take 1 tablet (10 mg total) by mouth meteorologist liaison before breakfast Active dulaglutide (TRULICITY) 0.75 mg/0.5 [...] 1 tablet (20 mg total) by mouth meteorologist liaison before breakfast Active gabapentin (NEURONTIN) 300 mg [...] eye. 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 Never 04/16/2023 Do you belong to any clubs o r organizations such as yarsanism groups, unions, fraternal or athletic groups, or [...] on file Legal Sex Female 8:53 PM POLYSOMNOGRAPHIC TECHNICIAN Gender Identity Female 12/23/2024 9:35 AM POLYSOMNOGRAPHIC TECHNICIAN Sexual Orientation Straight 12/23/2024 9: 35 AM POLYSOMNOGRAPHIC TECHNICIAN Obstetrics History Last Filed Vital Signs Vital [...] 170.2 cm (5' 7) 12/23/2024 9:15 AM POLYSOMNOGRAPHIC TECHNICIAN Body Mass Index 38.84 12/23/2024 9:15 AM POLYSOMNOGRAPHIC TECHNICIAN Plan of Treatment Health Maintenance Due Date [...] 05/04, 02/23/2024, Additional history exists Influenza Vaccine (#1) 2025 Dilated Eye Exam 02/24/2026 02/24/2025, 11/01/2024 DTaP/Tdap/Td Vaccine (7 - Td or Tdap) 12/02/2032 12/02/2022, 08/14/2006, 05/08/1994, Additional history exists Hepatitis B Screening Completed 03/06/1994 , 07/27/1993, 06/01/1993 Varicella Vaccines Completed 04/25/2008, 08/13/2007 Medical Devices Implanted Type Area Cable Coverer Device Identifier Shelf Expiration Date Model / Serial / Lot [employer] Lens Iol [id number] Analisa [employer]va [employer]onom [id number] - [id number] - [id number] Implanted:Qty: 1 on 01/10/2025 by Bita Vega MD at [facility] Lens Right: Eye [employer] 06/14/2026 [id number] / [id number] / 0 Procedures Procedure Name Priority Date/Time Associated Diagnosis Comments EGFR Routine 09/23/2023 5:39 PM POLYSOMNOGRAPHIC TECHNICIAN ALBUMIN CREATININE RATIO, URINE Routine 04/17/2023 4:23 PM CDT LIPID PANEL Routine 04/17/2023 1:03 PM CDT HEMOGLOBIN A1C Routine 04/16/2023 7:06 AM CDT from Last 3 Months or Most Recently Relevant to Health Maintenance Results * eGFR (09/23/2023 5:39 PM POLYSOMNOGRAPHIC TECHNICIAN) eGFR 22 mL/min/1. 73 m2 [facility] Comment: [...] last reviewed 2021. Blood 09/23/2023 5:39 PM POLYSOMNOGRAPHIC TECHNICIAN 09/23/2023 8:31 PM POLYSOMNOGRAPHIC TECHNICIAN us Tyrel Simmons MD LAB BLOOD ORDERABLES Final Result Performing Organization Address City/[facility]/ZIP Co de Phone Number [facility] [address] Department [place] [address] * (ABNORMAL) Albumin Creatinine Ratio, Urine (04/17/2023 [...] ORDERABLES Final Re sult Performing Organization Address City/[facility] Co de Phone Number [facility] [address] [facility] Department [place] [address] * (ABNORMAL) Lipid panel (04/17/2023 1:03 PM [...] ORDERABLES Final Re sult Performing Organization Address [facility] de Phone Number [address] [address] * (ABNORMAL) Hemoglobin A1c (04/16/2023 7:06 AM CDT) Hgb A1C 6.5(H) 4.0 - 5.6 % [facility] Estimated Average Glucose 140 mg/dL [facility] Comment: The ADA recommends reporting an estimated Average Glucose (eAG) with all Hemoglobin A1c results using the equation derived from a study of 507 normal and diabetic adults. Minority populations were underrepresented and children were not included. (Diabetes Care 31:6706-3366, 2008). The eAG is not equivalent to a fasting glucose. Blood 04/16/2023 7:06 AM CDT 04/16/2023 7:45 AM CDT Amilcar Estrada MD LAB BLOOD ORDERABLES Final Re sult Performing Organization Address [facility] de Phone Number [address] [address] from Last 3 Months or Most Recently Relevant to Health Maintenance Insurance MEDICARE IDKS MEDICARE Advance Directives For more information, please contact: [phone] Documents on File Type Date Recorded Patient Parts Counter Associate Expl anation ADVANCE DIRECTIVE 04/23/2023 12:11 PM Breana r of [employer] Sales-Medical ADVANCE DIRECTIVE 04/23/2023 12:11 PM POLS T [...] Relationship Healthcare Agent Relationship Communication Kianna Nunez [facility] Health Care Agent [email or web address] Suellen Resendiz [facility] Health Care Agent [email or web address] Care Teams Escort Patients Relationship Specialty Start Date End Date Cherise Patrick PA [address] [place] [id number] PCP - General Physician It Disaster Recovery Manager 02/20/23
--- OUTSIDE RECORDS SUMMARY | 2025-06-06 09:45 | XMS_ITS | Encounter Summary ---
Author Organization [facility] Address [address] [place] [address] Care Team Providers Care Logistics Supply Officer Name Role Phone None, Provider Primary Care Provider Anniea ble Encounter Details Date Type Department Care Team (Late st Contact Info) Description 01/22/2023 Telephone [facility] Physical Therapy [address] [place] [id number] Penny Gould, PT [address] [place] [address] Social History Tobacco Use Types Packs/Day Years [...] documented as of this encounter Care Teams Logistics Supply Officer Relationship Specialty Start Date End Date None, Provider, PCP - General 07/29/22 documented as of this encounter
--- OUTSIDE RECORDS SUMMARY | 2025-06-06 09:46 | XMS_ITS ---
Author Organization [facility] Address [address] [place] [address] Care Team Providers Care Nurse Orthopaedic Name Role Phone Yessi Shannon Primary Care Provider [phone] REASON FOR VISIT New Patient Psych Eval, follow up hospital per CI Social History Sex Assigned At : Social History Observation Description Sex Assigned At Female Encounters Encounter Location Date Provider Diagnosis [address] [place] [address] 01/26/2025 Yessi Shannon Plan Of Treatment No Information Progress Notes * Gay MATADOB:1990 (34 yo F)Acc No.[id number]:01/26/2025 UNLOCKED PROGRESS NOTE Patient: Gay FARRIS Provider: OZ Caldwell, SBA BUSINESS DEVELOPMENT OFFICER, CANDY BAR ATTENDANT-C :1990 A ge:34 Y S ex:Female Date:01/26/2025 [address] [id number] Subjective: * Chief Complaints: * 1 . New Patient Psych Eval, follow up hospital per CI. * Medical History: Objective: * Vitals: Assessment: Plan: * Treatment: * * Electronic signature of Jeremías Shannon , [id number] on 06/06/2025 at 09:45 AM CDT Sign off status: Pending * Provider: OZ Caldwell, SBA BUSINESS DEVELOPMENT OFFICER, CANDY BAR ATTENDANT-C Date: 0 01/26/2025 Generated for Roldan knight/Teresa/Rodgersmitting on: 0 06/06/2025 09:45 AM CDT
--- NOTE | 2025-06-06 09:50 | ED_ITS ---
HPI - Chest Pain General Chief Complaint: Chest Pain <Martin Rosario APRN - Last Filed: 06/06/25 09:51> Stated Complaint: cp <Martin Rosario APRN - Last Filed: 06/06/25 09:51> Time Seen by Provider: 06/06/25 10:46 <Martin Rosario APRN - Last Filed: 06/06/25 09:51> 34-year-old female presents to the ER complaining of chest pain. Patient has a while she was at dialysis today she developed chest pain approximately 1 hour left into her dialysis treatment. Patient reports the pain is not constant it is worse with taking a deep breath. Patient also reports the pain radiates into her left arm and jaw. Patient denies any shortness of breath, nausea, vomiting, diarrhea, dizziness, lightheadedness, palpitations, or any other symptoms. Patient left dialysis early to come here for further evaluation Focused HPI: GENERAL: Well-appearing, well-nourished, and in no acute distress. HEAD: Normocephalic, atraumatic. CHEST: Clear to auscultation. ?No respiratory distress. HEART: Regular rate and rhythm.? NEURO: ?Alert and oriented x3. Patient screened in triage and initial orders placed.? ?Additional care and disposition to be based upon?diagnostic testing and treatment. <Martin Rosario APRN - Last Filed: 06/06/25 09:51> Source: patient <Yvon Calderón MD - Last Filed: 06/06/25 12:30> Mode of arrival: EMS <Yvon Calderón MD - Last Filed: 06/06/25 12:30> Limitations: no limitations <Yvon Calderón MD - Last Filed: 06/06/25 12:30> History of Present Illness HPI narrative: 34-year-old with a history of ESRD on hemodialysis here with the complaints of chest pain with started while she was getting dialyzed. She states that she had about 1 however of treatment. She denies any shortness of breath. No history of nausea or vomiting. Denies any fever chills. She endorses Dr. Fair as her [facility] Hospitalist <Yvon Calderón MD - Last Filed: 06/06/25 12:30> MD complaint: chest pain <Yvon Calderón MD - Last Filed: 06/06/25 12:30> Onset (ago): hour(s) (2) <Yvon Calderón MD - Last Filed: 06/06/25 12:30> Timing of current episode: now resolved <Yvon Calderón MD - Last Filed: 06/06/25 12:30> Prior episodes: Yes <Yvon Calderón MD - Last Filed: 06/06/25 12:30> Pain location: left chest <Yvon Calderón MD - Last Filed: 06/06/25 12:30> Pain radiation: none <Yvon Calderón MD - Last Filed: 06/06/25 12:30> Severity: mild <Yvon Calderón MD - Last Filed: 06/06/25 12:30> Quality: tightness <Yvon Calderón MD - Last Filed: 06/06/25 12:30> Relieving factors: nothing <Yvon Caldernó MD - Last Filed: 06/06/25 12:30> Exacerbating factors: nothing <Yvon Calderón MD - Last Filed: 06/06/25 12:30> Context: recent illness <Yvon Calderón MD - Last Filed: 06/06/25 12:30> Treatment prior to arrival: none <Yvon Calderón MD - Last Filed: 06/06/25 12:30> Risk Factors Coronary artery disease risk factors: none <Yvon Calderón MD - Last Filed: 06/06/25 12:30> Thoracic aortic dissection risk factors: none <Yvon Calderón MD - Last Filed: 06/06/25 12:30> Related Data Home Medications: Home Medications ?Medication ?Instructions ?Recorded ?Confirmed ?Last Taken ?Type amlodipine 10 mg tablet 10 mg PO DAILY 08/04/23 03/28/25 03/27/25 History carvedilol 12.5 mg tablet 25 mg PO Q12H 08/04/23 03/28/25 03/27/25 History furosemide 40 mg tablet 40 mg PO DAILY 05/16/24 03/28/25 03/27/25 History apixaban 5 mg tablet (Eliquis) 5 mg PO BID 11/10/24 03/28/25 03/27/25 History <Martin Rosario APRN - Last Filed: 06/06/25 09:51> Allergies/Adverse Reactions: Allergies Allergy/AdvReac Type Severity Reaction Status Date / Time ceftriaxone (From Rocephin) Allergy Severe Other Verified 06/06/25 11:13 hydrocodone Allergy Mild Hives Verified 06/06/25 11:13 oxycodone Allergy Mild Hives Verified 06/06/25 11:13 <Martin Rosario APRN - Last Filed: 06/06/25 09:51> Review of Systems 2 Review of Systems: All systems reviewed & are unremarkable except as noted in HPI and below <Yvon Calderón MD - Last Filed: 06/06/25 12:30> Constitutional: Constitutional: Reports no additional constitutional complaints <Yvon Calderón MD - Last Filed: 06/06/25 12:30> Eyes: Eyes: Reports no additional eye complaints <Yvon Caldeórn MD - Last Filed: 06/06/25 12:30> ENT: Reports system reviewed and no additional complaints, except as documented <Yvon Calderón MD - Last Filed: 06/06/25 12:30> Cardiovascular: Cardiovascular: Reports as per HPI <Yvon Calderón MD - Last Filed: 06/06/25 12:30> Respiratory: Respiratory: Reports as per HPI <Yvon Calderón MD - Last Filed: 06/06/25 12:30> Gastrointestinal: Gastrointestinal: Reports no additional gastrointestinal complaints <Yvon Calderón MD - Last Filed: 06/06/25 12:30> Musculoskeletal: Musculoskeletal: Reports no additional musculoskeletal complaints <Yvon Calderón MD - Last Filed: 06/06/25 12:30> Integumentary/Breasts: Skin/Breast: Reports system reviewed and no additional complaints, except as docu <Yvon Calderón MD - Last Filed: 06/06/25 12:30> Neurologic: Reports system reviewed and no additional complaints, except as documented <Yvon Calderón MD - Last Filed: 06/06/25 12:30> PMFSH Past Medical History Medical History: Medical History 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 Septic arthritis of shoulder, left (05/2024) Diastolic heart failure secondary to hypertension EF 70% with grade 2 diastolic dysfunction echocardiogram August 2023 Anemia in chronic kidney disease End-stage renal disease on hemodialysis Hemodialysis initiated August 2023 Glaucoma Blind in both eyes (~03/2023) Occurred acutely March 2023 Diabetic neuropathy Hyperlipidemia Chronic heel ulcer Chronic heel ulcer on the left foot developed November 2022 with acute decompensation and subsequent above the knee amputation, now with a persistent right heel ulcer since the fall of 2022. 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 History of cataract extraction Status post insertion of dialysis catheter (08/2023) Right subclavian <Martin Rosario APRN - Last Filed: 06/06/25 09:51> Family History Family History: Family History Father Diabetes mellitus Hypertension Mother Hypertension Obesity Sibling Diabetes mellitus, Onset Age: 28 Sibling Unknown family medical history Does not see a doctor Diabetes mellitus <Martin Rosario APRN - Last Filed: 06/06/25 09:51> Social History Social History: Social History Social History: Surrogate decision maker: Kianna Nunez, sister ([phone]). Code status: Full code. Smoking status: Never smoker Additional smoking assessment comments: never smoked cigarettes Alcohol intake: never Drinks per week: 0 Substance use: former Substance use type: does not use Do You Feel Safe in your Home?: Yes Lack of Transportation: No Lack of Food: Never True Current Housing: I Have Housing Concerned About Future Housing: No Difficulty Paying Gas/Electric Bills: No Difficulty Paying for Meds: No Currently Unemployed: No Education: Grade School Difficulty w/ Childcare or Family Care: No Additional living arrangements comments: Lives with sister in [place]. 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 Spiritual care concerns: No <Martin Rosario APRN - Last Filed: 06/06/25 09:51> Exam 2 Narrative: GENERAL: Well-appearing, well-nourished, and in no acute distress. HEAD: Normocephalic, atraumatic. EYES: PERRLA a ENT: Nares clear, no rhinorrhea or epistaxis. Mucous membranes moist. NECK: Supple. CHEST: Clear to auscultation. No respiratory distress. HEART: Regular rate and rhythm. No murmur heard. Normal peripheral pulses. ABDOMEN: Soft, nontender, nondistended, normal active bowel sounds. EXTREMITIES: Normal range of motion. No edema. Amputation of the left lower extremity SKIN: Warm, dry, no rash. NEURO: No focal deficits. Alert and oriented x3. PSYCH: Normal mood and affect. <Yvon Calderón MD - Last Filed: 06/06/25 12:30> Course Course Emergency Course: Patient comfortably resting in no discomfort. Informed her about the lab work, chest x-ray findings. Discussed with Dr. Rivera patient could be discharged home on oral antibiotic will follow-up in office. <Yvon Calderón MD - Last Filed: 06/06/25 12:30> Vital Signs Vital signs: Vital Signs Temperature 36.9 C 06/06/25 09:38 Pulse Rate 101 H 06/06/25 09:38 Respiratory Rate 20 06/06/25 09:38 Blood Pressure 131/89 06/06/25 09:38 Pulse Oximetry 97 06/06/25 09:38 Oxygen Delivery Room Air 06/06/25 09:38 Temperature 36.9 C 06/06/25 09:38 Pulse Rate 93 06/06/25 11:31 Respiratory Rate 19 06/06/25 11:31 Blood Pressure 132/97 H 06/06/25 11:31 Pulse Oximetry 97 06/06/25 11:31 Oxygen Delivery Room Air 06/06/25 11:00 <Martin Rosario APRN - Last Filed: 06/06/25 09:51> Vital Signs Temperature 36.9 C 06/06/25 09:38 Pulse Rate 101 H 06/06/25 09:38 Respiratory Rate 20 06/06/25 09:38 Blood Pressure 131/89 06/06/25 09:38 Pulse Oximetry 97 06/06/25 09:38 Oxygen Delivery Room Air 06/06/25 09:38 Temperature 36.9 C 06/06/25 09:38 Pulse Rate 93 06/06/25 11:31 Respiratory Rate 19 06/06/25 11:31 Blood Pressure 132/97 H 06/06/25 11:31 Pulse Oximetry 97 06/06/25 11:31 Oxygen Delivery Room Air 06/06/25 11:00 <Yvon Calderón MD - Last Filed: 06/06/25 12:30> MDM - Chest Pain Differential Diagnosis Differential diagnosis: Likely pneumothorax, atypical chest pain, st elevation myocardial infarction and other (Pneumonia) <Yvon Calderón MD - Last Filed: 06/06/25 12:30> Medical Records Data Attestation: I reviewed the patient's medical records. <Yvon Calderón MD - Last Filed: 06/06/25 12:30> Lab Data Attestation: I reviewed the patient's lab results. <Yvon Calderón MD - Last Filed: 06/06/25 12:30> Result diagrams: 06/06/25 10:30 06/06/25 10:30 <Martin Rosario APRN - Last Filed: 06/06/25 09:51> Labs: Lab Results 06/06/25 Range/Units 10:30 WBC 14.2 H (4.5-10.0) K/mm3 RBC 4.36 (4.2-5.4) M/mm3 Hgb 12.7 (12.0-15.0) g/dL Hct 39.9 (37.0-47.0) % MCV 91.5 (80-100) fl MCH 29.1 (26-34) pg MCHC 31.8 L (32-36) g/dl RDW 15.2 H (11.5-14.5) % Plt Count 438 H (150-375) k/mm3 MPV 9.5 (7.4-10.4) fl Immature Gran % (Auto) 1.2 H (0-0.5) % Neut % (Auto) 77.0 H (45.5-73.1) % Lymph % (Auto) 13.5 L (18.3-44.2) % [place] % (Auto) 5.1 (2.6-8.5) % Eos % (Auto) 2.8 (0-4.4) % Baso % (Auto) 0.4 (0.2-1.2) % Lymph # (Auto) 1.92 (0.9-3.2) K/mm3 [place] # (Auto) 0.7 H (0.1-0.6) K/mm3 Eos # (Auto) 0.4 H (0-0.3) K/mm3 Baso # (Auto) 0.1 (0.0-0.1) K/mm3 Abs Immat Gran (auto) 0.17 H (0.00-0.031) K/mm3 Absolute Neuts (auto) 10.9 H (1.3-6.7) K/mm3 Absolute Nucleated RBC 0.050 H (0.0-0.012) K/mm3 Nucleated RBC % 0.4 H (0.0-0.2) % PT 13.1 (11.1-14.7) Seconds INR 1.0 APTT 31.0 (22.3-36.8) Seconds Sodium 131 L (137-145) mmol/L Potassium 4.3 (3.4-5.0) mmol/L Chloride 103 (98-107) mmol/L Carbon Dioxide 17 L (22-30) mmol/L Anion Gap 11 (4-12) mmol/L BUN 18 H (7-17) mg/dL Creatinine 3.99 H (0.7-1.0) mg/dL Estim Creat Clear Calc Not Reportable Estimated GFR 13 L (59 - ) Glucose 462 H (65-110) mg/dL Calcium 8.5 (8.4-10.2) mg/dL Total Bilirubin 0.3 (0.2-1.3) mg/dL AST 17 (14-36) U/L ALT 11 (6-35) U/L Alkaline Phosphatase 276 H (38-126) U/L Troponin I < 0.012 (0.000-0.034) ng/mL Total Protein 7.7 (6.3-8.2) g/dL Albumin 3.5 (3.5-5.1) g/dL Lipase 63 (23-300) U/L <Martin Rosario, SLUNK SKINNER - Last Filed: 06/06/25 09:51> Lab Results 06/06/25 Range/Units 10:30 WBC 14.2 H (4.5-10.0) K/mm3 RBC 4.36 (4.2-5.4) M/mm3 Hgb 12.7 (12.0-15.0) g/dL Hct 39.9 (37.0-47.0) % MCV 91.5 (80-100) fl MCH 29.1 (26-34) pg MCHC 31.8 L (32-36) g/dl RDW 15.2 H (11.5-14.5) % Plt Count 438 H (150-375) k/mm3 MPV 9.5 (7.4-10.4) fl Immature Gran % (Auto) 1.2 H (0-0.5) % Neut % (Auto) 77.0 H (45.5-73.1) % Lymph % (Auto) 13.5 L (18.3-44.2) % [place] % (Auto) 5.1 (2.6-8.5) % Eos % (Auto) 2.8 (0-4.4) % Baso % (Auto) 0.4 (0.2-1.2) % Lymph # (Auto) 1.92 (0.9-3.2) K/mm3 [place] # (Auto) 0.7 H (0.1-0.6) K/mm3 Eos # (Auto) 0.4 H (0-0.3) K/mm3 Baso # (Auto) 0.1 (0.0-0.1) K/mm3 Abs Immat Gran (auto) 0.17 H (0.00-0.031) K/mm3 Absolute Neuts (auto) 10.9 H (1.3-6.7) K/mm3 Absolute Nucleated RBC 0.050 H (0.0-0.012) K/mm3 Nucleated RBC % 0.4 H (0.0-0.2) % PT 13.1 (11.1-14.7) Seconds INR 1.0 APTT 31.0 (22.3-36.8) Seconds Sodium 131 L (137-145) mmol/L Potassium 4.3 (3.4-5.0) mmol/L Chloride 103 (98-107) mmol/L Carbon Dioxide 17 L (22-30) mmol/L Anion Gap 11 (4-12) mmol/L BUN 18 H (7-17) mg/dL Creatinine 3.99 H (0.7-1.0) mg/dL Estim Creat Clear Calc Not Reportable Estimated GFR 13 L (59 - ) Glucose 462 H (65-110) mg/dL Calcium 8.5 (8.4-10.2) mg/dL Total Bilirubin 0.3 (0.2-1.3) mg/dL AST 17 (14-36) U/L ALT 11 (6-35) U/L Alkaline Phosphatase 276 H (38-126) U/L Troponin I < 0.012 (0.000-0.034) ng/mL Total Protein 7.7 (6.3-8.2) g/dL Albumin 3.5 (3.5-5.1) g/dL Lipase 63 (23-300) U/L <Yvon Calderón MD - Last Filed: 06/06/25 12:30> Imaging Data Attestation: I personally reviewed and interpreted this imaging study as follows: < Yvon Calderón MD - Last Filed: 06/06/25 12:30> Radiologist's impression: ITS Impressions Chest X-Ray 06/06/25 10:46 Impression: 1: Developing left upper lobe pneumonia. <Yvon Calderón MD - Last Filed: 06/06/25 12:30> ECG Data EKG #1: ECG completion date: 06/06/25 <Yvon Calderón MD - Last Filed: 06/06/25 12:30> ECG completion time: 09:40 <Yvon Calderón MD - Last Filed: 06/06/25 12:30> EKG Interpretation: tachycardia (101), no ectopy, normal QRS and left axis <Yvon Calderón MD - Last Filed: 06/06/25 12:30> Discharge Plan Discharge Clinical Impression: Pneumonia Qualifiers: Pneumonia type: due to unspecified organism Laterality: left Lung location: u pper lobe of lung Qualified Code(s): J18.9 - Pneumonia, unspecified organism <Martin Rosario APRN - Last Filed: 06/06/25 09:51> Patient Disposition: Home <Martin Rosario APRN Last Filed: 06/06/25 09:51> Condition: Stable <Martin Rosario APRN - Last Filed: 06/06/25 09:51> Instructions: Chest Pain (ED), Pneumonia (ED) <Martin Rosario APRN - Last Filed: 06/06/25 09:51> Additional Instructions: Continue home medication. Take antibiotic as prescribed., follow-up with your primary doctor <Martin Rosario APRN Last Filed: 06/06/25 09:51> Patient Language: Uzbek <Martin Rosario APRN Last Filed: 06/06/25 09:51> Prescriptions: New doxycycline hyclate 100 mg tablet 100 mg PO BID Qty: 14 0RF No Action carvedilol 12.5 mg tablet 25 mg PO Q12H amlodipine 10 mg tablet 10 mg PO DAILY lisinopril 20 mg Tablet 20 mg PO QAM 30 Days Qty: 30 0RF furosemide 40 mg Tablet 40 mg PO DAILY (DME) blood-glucose meter [place]Touch [place] Flex [place] [facility] [place] 1 0RF Rx Instructions: May substitute to in-stock meter and/or covered by insurance. Use As Directed (DME) OneTouch Verio test strips Strip Qty: 1 0RF Rx Instructions: May substitute to in-stock and/or covered by insurance strips. Use As Directed (DME) pen needle, diabetic 32 gauge x 5/32 Needle Qty: 1,200 0RF Rx Instructions: As Directed (DME) lancets [OneTouch Delica Plus Lancet] 30 gauge [facility] [place] Qty: 1 0RF Rx Instructions: May substitute to in-stock and/or covered by insurance lancets. Use As Directed insulin glargine [Lantus Solostar U-100 Insulin] 100 unit/mL (3 mL) insulin pen 30 unit subcut QAM Qty: 15 0RF insulin aspart U-100 100 unit/mL (3 mL) insulin pen 1 sliding scale dose subcut USEASDIRECTD Qty: 15 0RF Rx Instructions: Rx Instructions: <70-Follow Hypoglycemic protocol 70-200: No addition Insulin 201-250: 3 U 251-300: 4 U 301-350: 5 U 351-400: 6 U >400: Call linezolid 600 mg Tablet 600 mg PO Q12HR 14 Days Qty: 28 0RF Eliquis 5 mg tablet 5 mg PO BID <Martni Rosario APRN - Last Filed: 06/06/25 09:51> Follow-up/Referrals: Darnell,TOÑITO Luong [Primary Care Provider] - <Martin Rosario APRN - Last Filed: 06/06/25 09:51> Time of Disposition: 12:29 <Martin Rosario APRN - Last Filed: 06/06/25 09:51> 12:29 <Yvon Calderón MD - Last Filed: 06/06/25 12:30>
--- OUTSIDE RECORDS SUMMARY | 2025-06-06 10:14 | XMS_ITS | Clinical Summary ---
Author Organization [facility] Address [address] [place] [address] Care Team Providers Care Industrial Organization Manager Name Role Phone Cherise Patrick Primary Care Provider [phone] Allergies No known active allergies Medications furosemide (LASIX) 40 mg tabletIndicati ons:hypertensi on Take 1 tablet (40 mg total) by mouth film processor before breakfast Active carvediloL (COREG) 12.5 mg tabletIndicati ons:hypertensi on Take 1 tablet (12.5 mg total) by mouth 2 (two) times a day with meals Active amLODIPine (NORVASC) 10 mg tabletIndicati ons:hypertensi on Take 1 tablet (10 mg total) by mouth film processor before breakfast Active dulaglutide (TRULICITY) 0.75 mg/0.5 [...] 1 tablet (20 mg total) by mouth film processor before breakfast Active gabapentin (NEURONTIN) 300 mg [...] eye. Assessment & Plan (11/01/2024 2:13 PM DEGREASER OPERATOR): With severe tractional retinal detachments in [...] Type Department Care Team Description 04/20/2025 Telephone [facility] Ophthalmology [address] [facility] [address] [place] [address] Sumi Gupta MD from Last [...] Never 04/16/2023 How often do you attend synagogue or druze serv ices? Never 04/16/2023 Do you belong to any clubs o r organizations such as synagogue groups, unions, fraternal or athletic groups, or [...] on file Legal Sex Female 8:53 PM DEGREASER OPERATOR Gender Identity Female 12/23/2024 9:35 AM DEGREASER OPERATOR Sexual Orientation Straight 12/23/2024 9: 35 AM DEGREASER OPERATOR Obstetrics History Last Filed Vital Signs Vital [...] 170.2 cm (5' 7) 12/23/2024 9:15 AM DEGREASER OPERATOR Body Mass Index 38.84 12/23/2024 9:15 AM DEGREASER OPERATOR Plan of Treatment Health Maintenance Due Date [...] 04/25/2008, 08/13/2007 Medical Devices Implanted Type Area Processor Inspector Device Identifier Shelf Expiration Date Model / Serial / Lot [employer] Lens Iol [id number] Analisa [employer]onom [id number] - [id number] - [id number] Implanted:Qty: 1 on 01/10/2025 by Bita Vega MD at [facility] Advanced Medicine Lens Right: Eye [employer] 06/14/2026 [id number] / [id number] / 0 Procedures Procedure Name Priority Date/Time Associated Diagnosis Comments EGFR Routine 09/23/2023 5:39 PM DEGREASER OPERATOR ALBUMIN CREATININE RATIO, URINE Routine 04/17/2023 4:23 PM CDT LIPID PANEL Routine 04/17/2023 1:03 PM CDT HEMOGLOBIN A1C Routine 04/16/2023 7:06 AM CDT from Last 3 Months or Most Recently Relevant to Health Maintenance Results * eGFR (09/23/2023 5:39 PM DEGREASER OPERATOR) eGFR 22 mL/min/1. 73 m2 DWIGHT Comment: [...] last reviewed 2021. Blood 09/23/2023 5:39 PM DEGREASER OPERATOR 09/23/2023 8:31 PM DEGREASER OPERATOR us Tyrel Simmons MD LAB BLOOD ORDERABLES Final Result Performing Organization Address City/[facility]/ZIP Co de Phone Number DWIGHT [address] [address] Department [place] [address] * (ABNORMAL) Albumin Creatinine Ratio, Urine (04/17/2023 [...] ORDERABLES Final Re sult Performing Organization Address City/[facility] Co de Phone Number DWIGHT [address] [facility] Department [place] [address] * (ABNORMAL) Lipid panel (04/17/2023 1:03 PM [...] Re sult Performing Organization Address [facility] de Phone Number [address] [address] * (ABNORMAL) Hemoglobin A1c (04/16/2023 7:06 AM CDT) Hgb A1C 6.5(H) 4.0 - 5.6 % DWIGHT Estimated Average Glucose 140 mg/dL DWIGHT Comment: The ADA recommends reporting an estimated Average Glucose (eAG) with all Hemoglobin A1c results using the equation derived from a study of 507 normal and diabetic adults. Minority populations were underrepresented and children were not included. (Diabetes Care 31:6185-1144, 2008). The eAG is not equivalent to a fasting glucose. Blood 04/16/2023 7:06 AM CDT 04/16/2023 7:45 AM CDT Amilcar Estrada MD LAB BLOOD ORDERABLES Final Re sult Performing Organization Address [facility] de Phone Number [address] [address] from Last 3 Months or Most Recently Relevant to Health Maintenance Insurance MEDICARE IDDC MEDICARE Advance Directives For more information, please contact: [phone] Documents on File Type Date Recorded Patient Director Diversity Expl anation ADVANCE DIRECTIVE 04/23/2023 12:11 PM Breana r of [employer] ADVANCE DIRECTIVE 04/23/2023 12:11 PM POLS T [...] Relationship Healthcare Agent Relationship Communication Kianna Nunez [facility] Health Care Agent [email or web address] Suellen Resendiz [facility] Health Care Agent [email or web address] Care Teams Industrial Organization Manager Relationship Specialty Start Date End Date Cherise Patrick PA [address] [place] [id number] PCP - General Physician Astronomy Professor 02/20/23
--- OUTSIDE RECORDS SUMMARY | 2025-06-06 10:14 | XMS_ITS | Clinical Summary ---
Author Organization [facility] [employer] Address [address] [place] [address] Care Team Providers Care Sock Knitter Name Role Phone Cherise Patrick PA-C Primary Care Provider Source Comments [facility] [employer],non-owned Affiliates and Associated Physician Practices is amultiple site organization consisting of ambulatory clinics and hospital sitesin [place], [place], [place] and [place]. This disclosure is being madepursuant to the Care Everywhere program and may not contain all information available regarding this patient. Last updated 18.[employer] Allergies No known active allergies Medications * [...] Reported on 08/27/2024 Blood Glucose Monitoring Suppl ([place] Verio Reflect) w/Device KITIndications: CALL AUSTYN WHEN [...] - 03/18/2025 4:25 PM CDT Hospital Encounter [facility] OP [address] [place] [address] Artie Harmon MD [facility] Discharge Disposition: Home or Self Care 03/16/2025 Orders Only [facility] [address] [place] [address] Artie Harmon MD ESRD (end stage renal [...] Date Recorded PHQ2 TOTAL SCORE 0 06/10/2023 [facility] - Occupational [...] slept in a penitentiary (including now)? No 07/26/2024 Comments No Sex and Gender Information Value Date Recorded Sex Assigned at Not on file Legal Sex Female 6:46 AM SEATING UPHOLSTERER Gender Identity Not on file Sexual Orientation [...] this topic Medical Devices Implanted Type Area Top Stop Attacher Device Identifier Shelf Expiration Date Model / Serial / Lot Kit Durathane Drflw Embosafe Chrnc Dlys Implanted:Qty: 1 on 02/25/2024 by Artie Harmon MD at [facility] Right: Chest [employer] 07/03/2026 [id number] / / [id number] Description:IMPLANTED BY DR. JUAN Gill Durathane Drflw Embosafe Chrnc Dlys Implanted:Qty: 1 on 08/06/2024 by Artie Harmon MD at [facility] Left: Chest Wall [employer] 07/03/2026 [id number] / / [id number] Description:Implanted in the left chest wall, via the [facility], by Dr. Candy Harmon. Kit Durathane Drflw Embosafe Chrnc Dlys Implanted:Qty: 1 on 03/18/2025 by Rio Monk MD at [facility] [employer] 12/03/2026 [id number] / / [id number] Procedures Procedure Name Priority Date/Time Associated Diagnosis [...] None. Contrast: None Complications: None immediate PROCEDURE: Psychometrician: Rio Monk Procedures performed: 1. Replacement of [...] evaluation, please review the evaluation forms in [facility]. For details on monitored clinical parameters during the intra-service sedation time, please review the procedure nurse documentation in [facility]. The patient tolerated procedure without difficulty. I was present for the entire procedure. > Interpreting Provider: Rio Monk MD on 03/20/2025 7:59 AM Procedure Note Rio Monk MD - 03/20/2025 PROCEDURE: IR CENTRAL LINE INSERT TUNNEL DATE/TIME OF EXAM: 03/18/2025 3:43 PM CLINICAL INFORMATION: None relevant/not provided if blank. Indication: N18.6: ESRD (end stage renal disease) ([facility]) Additional History: COMPARISON: None. FLUOROSCOPY DOSE: mGy Reference air kerma (ka,r). MEDICATIONS: None. Contrast: None Complications: None immediate PROCEDURE: Psychometrician: Rio Monk Procedures performed: 1. Replacement of [...] patient evaluation, please reviewthe evaluation forms in [facility]. For details on monitored clinical parameters during the intra-service sedation time, please review the procedurenurse documentation in [facility]. The patient tolerated procedure without difficulty. I was present for the entire procedure. > Interpreting Provider: Rio Monk MD on 03/20/2025 7:59 AM DougTiana Harmon MD IR ORDERABLES Final Result * (ABNORMAL) GLUCOSE - POINT OF CARE (03/18/2025 1:39 PM CDT) Glucose WB/POC 382(H) 70 - 99 mg/dL 03/21/2025 7:08 AM CDT [facility] Specimen Type Venous 03/21/2025 7:08 AM CDT [facility] Blood BLOOD SPECIMEN / Unknown 03/18/2025 1:39 PM CDT 03/21/2025 7:08 AM CDT Artie Harmon MD LAB - POINT OF CARE ORDERABLES F inal Result Performing Organization Address [facility] Co de Phone Number [address] [address], [facility] [phone] * HCG BETA BLOOD QUANTITATIVE (03/18/2025 1:38 PM CDT) Beta-hCG Total Quantitative <3 mIU/mL 03/18/2025 2:38 PM CDT [facility] Comment: HCG Numeric Result Interpretation: Non- [...] CHEMISTRY ORDERABLES Final Result Performing Organization Address [facility] Co de Phone Number [address] [address], [facility] [phone] * (ABNORMAL) HEMOGLOBIN A1C (08/28/2024 8:29 PM CDT) Hemoglobin A1c 7.4(H) <=5.6 % 08/29/2024 8:36 AM CDT [facility] Estimated Average Glucose 166 mg/dL 08/29/2024 8:36 AM CDT [facility] Comment: HbA1c Interpretation: Normal : < 5.7% Pre-diabetes: 5.7-6.4% Diabetes: Equal to or greater than 6.5% Test results diagnostic of diabetes should be repeated for confirmation. Treatment target values recommended by ADA and other clinical organizations should be used to evaluate metabolic control in patients. Reference: [place] Diabetes Association, Standards of Care in Diabetes [...] ORDERABLES Fin al Result Performing Organization Address City/[facility]/ZIP Co de Phone Number [address] [address], [place] [phone] * HEPATITIS C AB SCREEN RFLX NAAT QUANT (05/31/2024 6:38 PM CDT) Pathologist [facility] Hepatitis C Antibody Non-react talia Non-reac tive 05/31/2024 7:33 PM CDT [facility] Comment:Hepatitis C Antibody screen indicates no [...] Organization Address [facility]/ZIP Co de Phone Number [address] [address], [place] [phone] * HIV-1 HIV-2 ANTIBODY + HIV P24 AG PANEL (02/24/2024 8:57 AM CDT) Pathologist [facility] HIV Antigen/Antibod y 1 & 2 Non-reacti ve Non-react talia 02/24/2024 10:03 AM CDT [facility] Comment:No Laboratory eviden ce of HIV infection. Blood BLOOD SPECIMEN / Unknown Lab Venipuncture / Unknown 02/24/2024 8:57 AM CDT 02/24/2024 9:00 AM CDT us Rafa Patel MD LAB - CHEMISTRY ORDERABLES Final Result [facility] [address] [place] [address], [facility] [phone] from Last 3 Months or Most Recently [...] 2:41 AM 05/23/2023 7:59 PM Care Teams Sock Knitter Relationship Specialty Start Date End Date Cherise Patrick PA-C [address] [place] [phone] PCP - General 02/23/24
--- OUTSIDE RECORDS SUMMARY | 2025-06-06 10:14 | XMS_ITS | Encounter Summary ---
Author Organization [facility] Address [address] [place] [address] Care Team Providers Care Grades 9 12 Tutor Name Role Phone Cherise Patrick PA-C Primary Care Provider Reason for Visit * Reason Onset Date Comments Hospital Admission 04/24/2023 Encounter Details Date Type Department Care Team (Late st Contact Info) Description 04/24/2023 Telephone [facility] STANDARD [address] [place] [address] Sameer Navarro MD [facility] [address] Hospital Admission Social History Tobacco [...] and heating? Not hard at all 04/28/2023 [facility] Occup[facility] ional Health - Occupational Stress [...] slept in a intermediate (including now)? No 04/28/2023 Comments No Sex and Gender Information Value Date Recorded Sex Assigned at Not on file Legal Sex Female 6:46 AM MASTER COOK Gender Identity Not on file Sexual Orientation [...] Assessment Author Yes 12/03/2022 3:05 AM Erik hSarpe RN * Does person have difficulty dressing/bathing? [...] MD - 04/24/2023 12:21 PM CDT [facility] Transfer Call Documentation Date:04/24/2023 Time:12:21 PM Patient: Gay Canales : 1990 Referring Facility Name: [facility] Reason for Transfer: Right foot debridement vs BKA Brief Description (including applicable labs, imaging, consultations): 32 year old??female??with past medical history of DM 2, HTN, HFpEF, ??morbid obesity, MDD , status post left [facility] in [facility], at [facility] when she presented with necrotizing fasciitis [...] GIbleeding now. Patient needs on arrival to [facility]: Medicine admissions resident (ask casting machine service operator for Medicine Admission) to be notified of arrival. Consultation to (N/A if blank): Vascular/general surgery I have accepted this patient for transfer to [facility]. If patient awaiting bed for >24hours, an [...] documented as of this encounter Care Teams Grades 9 12 Tutor Relationship Specialty Start Date End Date Cherise Patrick PA-C [address] [place] [phone] PCP - General 02/23/24 documented as of this encounter
--- OUTSIDE RECORDS SUMMARY | 2025-06-06 10:14 | XMS_ITS | Referral Summary ---
Author Organization [facility] Address [address] [place] [address] Care Team Providers Care Bricklayer Sewer Name Role Phone Cherise Patrick Primary Care Provider [phone] Encounters Date Type Department Care Team Description 04/20/2025 Telephone [facility] Ophthalmology [address] [place] [address] Sumi Gupta MD from Last 3 Months Allergies No known active allergies Medications furosemide (LASIX) 40 mg tabletIndicati ons:hypertensi on Take 1 tablet (40 mg total) by mouth preparation plant supervisor before breakfast Active carvediloL (COREG) 12.5 mg tabletIndicati ons:hypertensi on Take 1 tablet (12.5 mg total) by mouth 2 (two) times a day with meals Active amLODIPine (NORVASC) 10 mg tabletIndicati ons:hypertensi on Take 1 tablet (10 mg total) by mouth preparation plant supervisor before breakfast Active dulaglutide (TRULICITY) 0.75 mg/0.5 [...] 1 tablet (20 mg total) by mouth preparation plant supervisor before breakfast Active gabapentin (NEURONTIN) 300 mg [...] eye. 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 Never 04/16/2023 Do you belong to any clubs o r organizations such as pentecostal groups, unions, fraternal or athletic groups, or [...] on file Legal Sex Female 8:53 PM DRAFTER CIVIL ENGINEERING Gender Identity Female 12/23/2024 9:35 AM DRAFTER CIVIL ENGINEERING Sexual Orientation Straight 12/23/2024 9: 35 AM DRAFTER CIVIL ENGINEERING Last Filed Vital Signs Vital Sign Reading [...] 170.2 cm (5' 7) 12/23/2024 9:15 AM DRAFTER CIVIL ENGINEERING Body Mass Index 38.84 12/23/2024 9:15 AM DRAFTER CIVIL ENGINEERING Plan of Treatment Not on file Medical Devices Implanted Type Area Trace Evidence Technician Device Identifier Shelf Expiration Date Model / Serial / Lot [employer] Lens Iol [id number] [employer] [id number] - [id number] - [id number] Implanted:Qty: 1 on 01/10/2025 by Bita Vega MD at [facility] Lens Right: Eye [employer] 06/14/2026 CCA0T0.225 / [id number] Procedures Procedure Name Priority Date/Time Associated Diagnosis Comments EGFR Routine 09/23/2023 5:39 PM DRAFTER CIVIL ENGINEERING ALBUMIN CREATININE RATIO, URINE Routine 04/17/2023 4:23 PM CDT LIPID PANEL Routine 04/17/2023 1:03 PM CDT HEMOGLOBIN A1C Routine 04/16/2023 7:06 AM CDT from Last 3 Months or Most Recently Relevant to Health Maintenance Results * eGFR (09/23/2023 5:39 PM DRAFTER CIVIL ENGINEERING) eGFR 22 mL/min/1. 73 m2 [facility] BRADEN [...] last reviewed 2021. Blood 09/23/2023 5:39 PM DRAFTER CIVIL ENGINEERING 09/23/2023 8:31 PM DRAFTER CIVIL ENGINEERING Tyrel Simmons MD LAB BLOOD ORDERABLES Final Result Performing Organization Address [facility] Co de Phone Number [facility] [phone] Department [place] [address] * (ABNORMAL) Albumin Creatinine Ratio, Urine (04/17/2023 [...] ORDERABLES Final Re sult Performing Organization Address [facility] Co de Phone Number [facility] [phone] [facility] Department [place] [address] * (ABNORMAL) Lipid panel (04/17/2023 1:03 PM [...] ORDERABLES Final Re sult Performing Organization Address [facility] de Phone Number [facility] [address] [facility] [place] [address] * (ABNORMAL) Hemoglobin A1c (04/16/2023 7:06 AM CDT) Hgb A1C 6.5(H) 4.0 - 5.6 % [facility] Estimated Average Glucose 140 mg/dL [facility] Comment: The ADA recommends reporting an estimated Average Glucose (eAG) with all Hemoglobin A1c results using the equation derived from a study of 507 normal and diabetic adults. Minority populations were underrepresented and children were not included. (Diabetes Care 31:9138-7327, 2008). The eAG is not equivalent to a fasting glucose. Blood 04/16/2023 7:06 AM CDT 04/16/2023 7:45 AM CDT Amilcar Estrada MD LAB BLOOD ORDERABLES Final Re sult Performing Organization Address [facility] Co de Phone Number [facility] [address] [facility] [address] [place] [address] from Last 3 Months or Most Recently Relevant to Health Maintenance Insurance MEDICARE [facility] MEDICARE Advance Directives For more information, please contact: [phone] Documents on File Type Date Recorded Patient Commanding Officer Homicide Squad Expl anation ADVANCE DIRECTIVE 04/23/2023 12:11 PM Breana r of Client Business Manager-Medical ADVANCE DIRECTIVE 04/23/2023 12:11 PM POLS [...] Relationship Healthcare Agent Relationship Communication Kianna Nunez [facility] Health Care Agent [email or web address] Suellen Resendiz [facility] Health Care Agent [email or web address] Care Teams Bricklayer Sewer Relationship Specialty Start Date End Date Cherise Patrick PA [address] [place] [phone] PCP - General Physician Box Toe Buffer 02/20/23
[2025-06-06 10:39] LABS: Hematocrit 39.9 % (37.0-47.0); Hemoglobin 12.7 g/dL (12.0-15.0); Immature Granulocyte Percent A 1.2 % (0-0.5); Lymphocytes Absolute Auto 1.92 K/mm3 (0.9-3.2); Mean Corpuscular HGB Conc 31.8 g/dl (32-36); Mean Corpuscular Hemoglobin 29.1 pg (26-34); Mean Corpuscular Volume 91.5 fl (80-100); Nucleated Red Blood Cells Absolute Auto 0.050 K/mm3 (0.0-0.012); Nucleated Red Blood Cells Perc 0.4 % (0.0-0.2); Platelet Count Result 438 k/mm3 (150-375); Red Blood Count 4.36 M/mm3 (4.2-5.4); White Blood Count 14.2 K/mm3 (4.5-10.0)
[2025-06-06 10:50] LABS: INR 1.0; Prothrombin Time 13.1 Seconds (11.1-14.7)
[2025-06-06 10:51] LABS: Partial Thromboplastin Time 31.0 Seconds (22.3-36.8)
[2025-06-06] MEDS: ASPIRIN 81 MG CHEWABLE TABLET 324 MG PO (10:57)
[2025-06-06 11:03] LABS: Alanine Aminotransferase 11 U/L (6-35); Albumin Level 3.5 g/dL (3.5-5.1); Alkaline Phosphatase 276 U/L (38-126); Anion Gap 11 mmol/L (4-12); Aspartate Amino Transferase 17 U/L (14-36); Bilirubin,Total 0.3 mg/dL (0.2-1.3); Blood Urea Nitrogen 18 mg/dL (7-17); Calcium 8.5 mg/dL (8.4-10.2); Carbon Dioxide 17 mmol/L (22-30); Chloride 103 mmol/L (98-107); Estimated Glomerular Filt Rate 13; Glucose 462 mg/dL (65-110); Lipase 63 U/L (23-300); Potassium 4.3 mmol/L (3.4-5.0); Sodium 131 mmol/L (137-145); Total Protein 7.7 g/dL (6.3-8.2)
[2025-06-06 11:14] LABS: Troponin I < 0.012 ng/mL (0.000-0.034)
== END 2025-06-06 12:39 | disposition home or self-care (01) ==
PROVIDERS: Emergency Provider Family Medicine; PCP Physician Assistant
DX: J18.9 Pneumonia, unspecified organism (principal); R00.0 Tachycardia, unspecified; I13.2 Hypertensive heart and chronic kidney disease with heart failure and with stage 5 chronic kidney disease, or end stage renal disease; E11.22 Type 2 diabetes mellitus with diabetic chronic kidney disease; N18.6 End stage renal disease; I50.30 Unspecified diastolic (congestive) heart failure; Z99.2 Dependence on renal dialysis; G47.30 Sleep apnea, unspecified; Z79.4 Long term (current) use of insulin
CPT/HCPCS: 36415; 71046; 80053; 83690; 84484; 85025; 85610; 85730; 93005; 99284; A9270

== ENCOUNTER 2025-06-17 07:09 | Outpatient (RCR) | payer MEDICARE, MEDICAID, SELFPAY | END 2025-06-21 23:59 | disposition home or self-care (01) | LOC: ANHWOC 07:09 | PROVIDERS: PCP Physician Assistant; Visit Provider Physician Assistant | DX: E11.621 Type 2 diabetes mellitus with foot ulcer (principal); L97.419 Non-pressure chronic ulcer of right heel and midfoot with unspecified severity | CPT/HCPCS: 99214; G0463 ==

== ENCOUNTER 2025-07-01 02:47 | Inpatient (IN) | payer MEDICARE, MEDICAID, SELFPAY ==
[2025-07-01] VITALS (17 sets, daily range): BP systolic 114–170; BP diastolic 63–94; PULSE 82–97; RESP 16–25; TEMP 36.6–37.3; O2SAT 94–100; BMI 42.5
--- NOTE | ~2025-07-01 | XR_ITS ---
XR foot RT 2V 07/01/2025 06:06 Indication: Foot ulcer. Procedure: 2 views right foot Comparison: 03/28/2025 Findings: There is focal ulceration of the soft tissues overlying the calcaneus at the plantar surface. There is mild polyarticular osteoarthritis. Lisfranc joint intact. No productive bone changes to suggest osteomyelitis. No fracture or traumatic subluxation. Impression: 1: No acute bone or joint abnormality. Reviewed, dictated and finalized at location O. Impression: 1: No acute bone or joint abnormality.
--- NOTE | ~2025-07-01 | CT_ITS ---
EXAMINATION: CT diagnostic chest wo con DATE: 07/01/2025 04:30 INDICATION: Chest pain TECHNIQUE: Computed tomography (CT) of the chest was performed without intravenous contrast. The dose-length product was 1082.90 mGy-cm. Automated exposure control and iterative reconstruction technique were employed. COMPARISON: CT dated 03/28/2025 FINDINGS: There are coarse interstitial densities in the upper lobes and left lower lobe which have improved since prior examination. There has been resolution of extensive groundglass opacification in both lungs. No endobronchial lesions. No pneumothorax. Mild mediastinal lymphadenopathy, likely reactive. No significant pleural or pericardial effusion. No soft tissue abnormality. No acute osseous abnormality. IMPRESSION: 1. Improved coarse interstitial densities of the upper and left lower lobes, likely chronic interstitial lung disease or scarring. Interval resolution of groundglass opacities bilaterally. 2: Abnormal number of borderline size lymph nodes mediastinum, likely reactive. Reviewed, dictated and finalized at location O. IMPRESSION: 1. Improved coarse interstitial densities of the upper and left lower lobes, li arcenio chronic interstitial lung disease or scarring. Interval resolution of grou ndglass opacities bilaterally. 2: Abnormal number of borderline size lymph nodes mediastinum, likely reactive.
--- NOTE | ~2025-07-01 | XR_ITS ---
XR chest 1V portable 07/01/2025 04:16 Indication: Chest pain Procedure: AP portable chest Comparison: Comparison to multiple prior studies sequentially, with oldest reviewed study dated 01/13/2025. Findings: Left IJ central venous catheter tips in the SVC. Borderline heart size. No focal air space disease, pulmonary edema, pleural effusion or suspected pneumothorax. Impression: 1: No acute cardiopulmonary disease. Reviewed, dictated and finalized at location O. Impression: 1: No acute cardiopulmonary disease.
--- NOTE | 2025-07-01 02:57 | ECG_ITS ---
Test Date: 2025-07-01 03:03:29 Measurements Intervals Trinity Rate: 90 P: 49 LA: 180 QRS: -22 QRSD: 89 T: 2 QT: 363 QTc: 444 Interpretive Statements SINUS RHYTHM LEFT ATRIAL ENLARGEMENT BORDERLINE R WAVE PROGRESSION, ANTERIOR LEADS BORDERLINE ST-T WAVE ABNORMALITY- INFERIOR LEADS BORDERLINE ECG Compared to ECG 06/06/2025 09:40:58 HEART RATE HAS DECREASED Electronically Signed On 07-01-2025 06:42:53 CDT by Azar Cook D.O.
[2025-07-01 03:51] LABS: Alanine Aminotransferase 13 U/L (6-35); Albumin Level 3.1 g/dL (3.5-5.1); Alkaline Phosphatase 221 U/L (38-126); Anion Gap 11 mmol/L (4-12); Aspartate Amino Transferase 17 U/L (14-36); Bilirubin,Total 0.1 mg/dL (0.2-1.3); Blood Urea Nitrogen 32 mg/dL (7-17); Calcium 7.8 mg/dL (8.4-10.2); Carbon Dioxide 15 mmol/L (22-30); Chloride 101 mmol/L (98-107); Estimated CRCL calculation 20 ml/min; Estimated Glomerular Filt Rate 9; Hematocrit 37.6 % (37.0-47.0); Hemoglobin 11.5 g/dL (12.0-15.0); INR 1.1; Immature Granulocyte Percent A 0.7 % (0-0.5); Lipase 118 U/L (23-300); Lymphocytes Absolute Auto 1.90 K/mm3 (0.9-3.2); Magnesium 1.8 mg/dL (1.6-2.3); Mean Corpuscular HGB Conc 30.6 g/dl (32-36); Mean Corpuscular Hemoglobin 28.8 pg (26-34); Mean Corpuscular Volume 94.0 fl (80-100); Nucleated Red Blood Cells Absolute Auto 0.000 K/mm3 (0.0-0.012); Nucleated Red Blood Cells Perc 0.0 % (0.0-0.2); Platelet Count Result 360 k/mm3 (150-375); Potassium 4.5 mmol/L (3.4-5.0); Prothrombin Time 14.7 Seconds (11.1-14.7); Red Blood Count 4.00 M/mm3 (4.2-5.4); Sodium 127 mmol/L (137-145); Total Protein 6.8 g/dL (6.3-8.2); White Blood Count 13.7 K/mm3 (4.5-10.0)
[2025-07-01 03:52] LABS: Partial Thromboplastin Time 31.1 Seconds (22.3-36.8)
[2025-07-01 03:55] LABS: Fractional Inspired Oxygen 21 %; HCO3 VBG 16.5 mEq/l (24.0-30.0); PCO2 VBG 40.3 mmHg (42.0-48.0); PO2 VBG 42.0 mmHg (35.0-45.0); pH VBG 7.229 (7.300-7.400)
[2025-07-01 03:56] LABS: Liters per Minute 0.0 LPM
[2025-07-01 04:02] LABS: Troponin I < 0.012 ng/mL (0.000-0.034)
[2025-07-01 04:06] LABS: Glucose 757 mg/dL (65-110)
[2025-07-01 05:11] LABS: Influenza A QL RT-PCR Negative (Negative); Influenza B QL RT-PCR Negative (Negative); RSV RNA, RT-PCR Negative (Negative); SARS-CoV-2 RNA PCR Negative (Negative)
[2025-07-01] MEDS: LACTATED RINGERS 1,000 ML 999 ML IV CONT ×2 (05:11→06:57)
[2025-07-01] MEDS: ACETAMINOPHEN 500 MG TABLET 1000 MG PO (05:11)
[2025-07-01] MEDS: KETOROLAC 15 MG/ML VIAL (*BKC) IV PUSH (05:12)
[2025-07-01] MEDS: INSULIN HUMAN REGULAR (*BKC) 100 UNITS/ML 10 UNITS IV PUSH (05:12)
--- NOTE | 2025-07-01 05:46 | ED.GENADULT ---
HPI - General Adult General Chief complaint: Chest Pain Stated complaint: CP, Difficulty breathing x 1-2 hrs Time Seen by Provider: 07/01/25 03:04 History of Present Illness HPI narrative: This is a 34-year-old female with multiple medical comorbidities presenting for chest pain. Patient said the chest pain started just prior to arrival. She typically has pain in the left side of her chest but is cross her entire chest. The pain is sharp. It radiates to her back. It is not associated with fevers cough or shortness of breath. Patient is on Eliquis. Patient has been taking her medications as directed although she was prescribed Trulicity limits unable to fill it due to it costing 1100 dollars a month. She has not been checking her blood sugars. She also has a wound on her right heel. She has been following with wound care once a month. Related Data Home Medications ?Medication ?Instructions ?Recorded ?Confirmed ?Last Taken ?Type amlodipine 10 mg tablet 10 mg PO DAILY 08/04/23 03/28/25 03/27/25 History carvedilol 12.5 mg tablet 25 mg PO Q12H 08/04/23 03/28/25 03/27/25 History furosemide 40 mg tablet 40 mg PO DAILY 05/16/24 03/28/25 03/27/25 History apixaban 5 mg tablet (Eliquis) 5 mg PO BID 11/10/24 03/28/25 03/27/25 History Allergies Allergy/AdvReac Type Severity Reaction Status Date / Time ceftriaxone (From Rocephin) Allergy Severe Other Verified 07/01/25 02:56 hydrocodone Allergy Mild Hives Verified 07/01/25 02:56 oxycodone Allergy Mild Hives Verified 07/01/25 02:56 [facility] Past Medical History Medical History 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 Septic arthritis of shoulder, left (05/2024) Diastolic heart failure secondary to hypertension EF 70% with grade 2 diastolic dysfunction echocardiogram August 2023 Anemia in chronic kidney disease End-stage renal disease on hemodialysis Hemodialysis initiated August 2023 Glaucoma Blind in both eyes (~03/2023) Occurred acutely March 2023 Diabetic neuropathy Hyperlipidemia Chronic heel ulcer Chronic heel ulcer on the left foot developed November 2022 with acute decompensation and subsequent above the knee amputation, now with a persistent right heel ulcer since the fall of 2022. Hypertension Surgical History Surgical History History of left above knee amputation Due to osteomyelitis. History of cataract extraction Status post insertion of dialysis catheter (08/2023) Right subclavian Family History Family History Father Diabetes mellitus Hypertension Mother Hypertension Obesity Sibling Diabetes mellitus, Onset Age: 28 Sibling Unknown family medical history Does not see a doctor Diabetes mellitus Social History Social History Social History: Surrogate decision maker: Kianna Nunez, sister ([phone]). Code status: Full code. Smoking status: Never smoker Additional smoking assessment comments: never smoked cigarettes Alcohol intake: never Drinks per week: 0 Substance use: former Substance use type: does not use Do You Feel Safe in your Home?: Yes Lack of Transportation: No Lack of Food: Never True Current Housing: I Have Housing Concerned About Future Housing: No Difficulty Paying Gas/Electric Bills: No Difficulty Paying for Meds: No Currently Unemployed: No Education: Grade School Difficulty w/ Childcare or Family Care: No Additional living arrangements comments: Lives with sister in [place]. 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 Spiritual care concerns: No Exam Narrative: APPEARANCE: No apparent distress. Head: atraumatic. EYES: EOMI, NOSE: Atraumatic NECK: Trachea midline RESPIRATORY: No increased rate of breathing clear auscultation CARDIOVASCULAR: RRR, no peripheral edema ABDOMINAL: Non-distended soft nontender no guarding MUSCULOSKELETAl: LLE amputation NEURO: Alert. Moving 4/4 extremities SKIN:: Unstageable ulcer to right heel with eschar PSYCHIATRIC: Normal affect Course Vital Signs Vital signs: Vital Signs Temperature 98.4 F 07/01/25 02:45 Pulse Rate 92 07/01/25 02:45 Respiratory Rate 18 07/01/25 02:45 Blood Pressure 153/86 H 07/01/25 02:45 Pulse Oximetry 98 08/29/25 02:45 Temperature 98.4 F 07/01/25 02:45 Pulse Rate 91 07/01/25 05:01 Respiratory Rate 20 07/01/25 05:01 Blood Pressure 146/89 H 07/01/25 05:01 Pulse Oximetry 100 07/01/25 05:01 Medical Decision Making MDM Narrative Medical decision making narrative: -Course: 34-year-old female with multiple medical problems presenting for chest pain. X-ray appeared clear. Chest CT ordered to evaluate for occult pneumonia. CT showed improving interstitial opacities which are likely old scarring. Troponin negative. Unclear etiology of her chest pain. Patient states she is compliant with her Eliquis so PE is less likely although treatment failure is possible. The rest of her workup was significant for blood sugar of 757. PH is 7.27. No anion gap. Slight acidotic. Patient given 10 units of IV insulin. And started on insulin drip for HHS. She may has a foul smelling unstageable diabetic heel ulcer which may be the source of her infection. Started on piperacillin tazobactam and vancomycin. Given 2 L lactated Ringer's as opposed to the 30 cc/kilogram bolus due to her end-stage renal disease. Patient will be admitted the ICU further management. -DDX includes but is not limited to: Pneumonia, Pleurisy, PE - less likely as the patient is on Eliquis, viral syndrome, ACS Vital Signs Vital Signs: Vital Signs Temperature 98.4 F 07/01/25 02:45 Pulse Rate 92 07/01/25 02:45 Respiratory Rate 18 07/01/25 02:45 Blood Pressure 153/86 H 07/01/25 02:45 Pulse Oximetry 98 07/01/25 02:45 Temperature 98.4 F 07/01/25 02:45 Pulse Rate 91 07/01/25 05:01 Respiratory Rate 20 07/01/25 05:01 Blood Pressure 146/89 H 07/01/25 05:01 Pulse Oximetry 100 07/01/25 05:01 Lab Data 07/01/25 03:26 07/01/25 03:26 Labs: Lab Results 07/01/25 07/01/25 Range/Units 03:26 06:07 WBC 13.7 H (4.5-10.0) K/mm3 RBC 4.00 L (4.2-5.4) M/mm3 Hgb 11.5 L (12.0-15.0) g/dL Hct 37.6 (37.0-47.0) % MCV 94.0 (80-100) fl MCH 28.8 (26-34) pg MCHC 30.6 L (32-36) g/dl RDW 15.2 H (11.5-14.5) % Plt Count 360 (150-375) k/mm3 MPV 10.4 (7.4-10.4) fl Immature Gran % (Auto) 0.7 H (0-0.5) % Neut % (Auto) 74.0 H (45.5-73.1) % Lymph % (Auto) 13.8 L (18.3-44.2) % [place] % (Auto) 7.3 (2.6-8.5) % Eos % (Auto) 3.8 (0-4.4) % Baso % (Auto) 0.4 (0.2-1.2) % Lymph # (Auto) 1.90 (0.9-3.2) K/mm3 [place] # (Auto) 1.0 H (0.1-0.6) K/mm3 Eos # (Auto) 0.5 H (0-0.3) K/mm3 Baso # (Auto) 0.1 (0.0-0.1) K/mm3 Abs Immat Gran (auto) 0.09 H (0.00-0.031) K/mm3 Absolute Neuts (auto) 10.2 H (1.3-6.7) K/mm3 Absolute Nucleated RBC 0.000 (0.0-0.012) K/mm3 Nucleated RBC % 0.0 (0.0-0.2) % PT 14.7 (11.1-14.7) Seconds INR 1.1 APTT 31.1 (22.3-36.8) Seconds Sodium 127 L (137-145) mmol/L Potassium 4.5 (3.4-5.0) mmol/L Chloride 101 (98-107) mmol/L Carbon Dioxide 15 L (22-30) mmol/L Anion Gap 11 (4-12) mmol/L BUN 32 H D (7-17) mg/dL Creatinine 5.26 H (0.7-1.0) mg/dL Estim Creat Clear Calc 20 ml/min Estimated GFR 9 L (59 - ) Glucose 757 H* (65-110) mg/dL POC Capillary Glucose > 500 H* (65-105) mg/dl Lactic Acid 1.6 (0.7-2.0) mmol/L Calcium 7.8 L (8.4-10.2) mg/dL Phosphorus 6.5 H (2.5-4.5) mg/dL Magnesium 1.8 (1.6-2.3) mg/dL Total Bilirubin 0.1 L (0.2-1.3) mg/dL AST 17 (14-36) U/L ALT 13 (6-35) U/L Alkaline Phosphatase 221 H (38-126) U/L Troponin I < 0.012 (0.000-0.034) ng/mL Total Protein 6.8 (6.3-8.2) g/dL Albumin 3.1 L (3.5-5.1) g/dL Lipase 118 (23-300) U/L Ethyl Alcohol < 10 (<10) mg/dL Influenza A (RT-PCR) Negative (Negative) Influenza B (RT-PCR) Negative (Negative) RSV (RT-PCR) Negative (Negative) SARS-CoV-2 RNA (RT-PCR) Negative (Negative) ABG Data ABG results: 07/01/25 03:51 VBG pH 7.229 L* VBG pCO2 40.3 L VBG pO2 42.0 VBG HCO3 16.5 L O2 Delivery Device Room air O2 Liters/Min 0.0 FiO2 21 Critical Care Time Critical Care Time Critical Care Time: Yes Total Critical Care Time: 35 Discharge Plan Discharge Clinical Impression: Hyperosmolar hyperglycemic state (HHS), Diabetic foot ulcer, End-stage renal disease (ESRD) Patient Disposition: Still a Patient Condition: Serious Patient Language: Armenian Prescriptions: No Action carvedilol 12.5 mg tablet 25 mg PO Q12H amlodipine 10 mg tablet 10 mg PO DAILY lisinopril 20 mg Tablet 20 mg PO QAM 30 Days Qty: 30 0RF furosemide 40 mg Tablet 40 mg PO DAILY (DME) blood-glucose meter [OneTouch Verio Flex meter] [facility] Qty: 1 0RF Rx Instructions: May substitute to in-stock meter and/or covered by insurance. Use As Directed (DME) OneTouch Verio test strips Strip Qty: 1 0RF Rx Instructions: May substitute to in-stock and/or covered by insurance strips. Use As Directed (DME) pen needle, diabetic 32 gauge x 5/32 Needle Qty: 1,200 0RF Rx Instructions: As Directed (DME) lancets [OneTouch Delica Plus Lancet] 30 gauge misc Qty: 1 0RF Rx Instructions: May substitute to in-stock and/or covered by insurance lancets. Use As Directed insulin glargine [Lantus Solostar U-100 Insulin] 100 unit/mL (3 mL) insulin pen 30 unit subcut QAM Qty: 15 0RF insulin aspart U-100 100 unit/mL (3 mL) insulin pen 1 sliding scale dose subcut USEASDIRECTD Qty: 15 0RF Rx Instructions: Rx Instructions: <70-Follow Hypoglycemic protocol 70-200: No addition Insulin 201-250: 3 U 251-300: 4 U 301-350: 5 U 351-400: 6 U >400: Call linezolid 600 mg Tablet 600 mg PO Q12HR 14 Days Qty: 28 0RF Eliquis 5 mg tablet 5 mg PO BID doxycycline hyclate 100 mg tablet 100 mg PO BID Qty: 14 0RF Follow-up/Referrals: Darnell,TOÑITO Luong [Primary Care Provider, Unknown]
[2025-07-01] MEDS: PIPERACILLIN/TAZOBACTAM SOD 3.375 GM in SODIUM CHLORIDE 0.9% IV 50 ML 100 ML IVPB (06:56)
[2025-07-01] MEDS: LACTATED RINGERS 1,000 ML 150 ML IV CONT (06:57)
[2025-07-01] MEDS: INSULIN HUMAN REGULAR (*BKC) 100 UNITS in SODIUM CHLORIDE 0.9% IV 99 ML 12.45 UNITS IV CONT (07:21)
--- NOTE | 2025-07-01 07:34 | PC.NURSE ---
Patient resting comfortably at this time.
--- NOTE | 2025-07-01 08:04 | P.HP_ITS ---
H&P: HPI History of Present Illness Date/Time: 07/01/25 08:04 Chief Complaint: Chest pain Narrative: 34yo female with EDD, insulin dependent DM, dCHF, HTN and ESRD who presents with complaints of chest pain. Chest pain began around 8pm while she was at rest. Pain was 'all across' her upper chest described as sharp. Pain lasted 30 sec and was associated with SOB. Pain was worse with sitting up but nothing else seemed to make it worse. Nonpleuritic and nonpalpable pain. Pain radiated to her right shoulder and neck. Chest pain resolved but neck/shoulder pain persisted and described as throbbing. She has had right shoulder pain in the past. Slight nonproductive cough but no fever or chills. She has ESRD related to her DM. On HD x 2 y[address] and follows with Dr Millan. Left chest access placed about months a go. She still makes urine. HD -- at [facility]. She is compliant with HD and last had HD on 06/29/25. She was diagnosed with DM II at age 18yo. She does not check her glucose at home. She is on Lantus 30U daily without meal time insulin. She has occasional early satiety. She lives with her sister who helps her with meals, appointments and trips to dialysis. She is blind. No odynophagia, dysphagia, nausea, vomiting, diarrhea, dysuria or hematuria. She has had a right heel wound for the past 2 years. Sister does daily dressing changes and has not mentioned to patient the wound was worsening. Patient seen in ED on 06/06/25 and was treated with Doxycycline for possible NONI PNA. She presented to the ED for evaluation for chest pain. In the ED, she was hemodynamically stable. WBC was 13.7K with Hgb 11.5 and normal platelet count. PT/PTT normal. VBG 7.23/40/42 on room air. Sodium 127, bicarb 15 (AG 11), BUN 32 and Cr 5.3. Glucose 757. Troponin <0.012. Lipase normal. Alcohol <10. Influenza, RSV and COVID PCR negative. CXR reviewed personally and was clear. CT chest reviewed personally showing improved coarse interstitial densities of the upper and left lower lobes, likely chronic i nterstitial lung disease or scarring. Interval resolution of groundglass opacities bilaterally. Also with abnormal number of borderline size lymph nodes mediastinum, likely reactive. Foot xray showing no acute bone or joint abnormalities. BCx collected. EKG reviewed personally showing NSR, LAE, poor R wave progression and inferior ST-T changes. She was treated with Toradol, Tylenol, Regular insulin IV and IV fluid bolus. She was started on Zosyn and Vancomycin. Insulin drip started with IV fluids and admitted to the ICU for further care. 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 Septic arthritis of shoulder, left (05/2024) Diastolic heart failure secondary to hypertension EF 70% with grade 2 diastolic dysfunction echocardiogram August 2023 Anemia in chronic kidney disease End-stage renal disease on hemodialysis Hemodialysis initiated August 2023 Glaucoma Blind in both eyes (~03/2023) Occurred acutely March 2023 Diabetic neuropathy Hyperlipidemia Chronic heel ulcer Chronic heel ulcer on the left foot developed November 2022 with acute decompensation and subsequent above the knee amputation, now with a persistent right heel ulcer since the fall of 2022. Hypertension Surgical History Surgical History History of left above knee amputation Due to osteomyelitis. History of cataract extraction Status post insertion of dialysis catheter (08/2023) Right subclavian Family History Family History Father Diabetes mellitus Hypertension Mother Hypertension Obesity Sibling Diabetes mellitus, Onset Age: 28 Sibling Unknown family medical history Does not see a doctor Diabetes mellitus Social History Social History (Updated 07/01/25 @ 12:25 by Juan Ortega MD) Social History: Rare tobacco use. No alcohol or drug use. No pets. Lives with sister. Surrogate decision maker: Kianna Nunez, sister ([phone]). Code status: Full code. Smoking status: Never smoker Additional smoking assessment comments: never smoked cigarettes Alcohol intake: never Drinks per week: 0 Substance use: never Substance use type: does not use Do You Feel Safe in your Home?: Yes Lack of Transportation: No Lack of Food: Never True Current Housing: I Have Housing Concerned About Future Housing: No Difficulty Paying Gas/Electric Bills: No Difficulty Paying for Meds: YES Currently Unemployed: No Education: High School Diploma/GED Difficulty w/ Childcare or Family Care: No Additional living arrangements comments: Lives with sister in [place]. 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 Spiritual care concerns: No Meds Home Medications and Allergies Home Medications ?Medication ?Instructions ?Recorded ?Confirmed ?Type amlodipine 10 mg tablet 10 mg PO DAILY 08/04/2306/04 History carvedilol 12.5 mg tablet 25 mg PO Q12H 08/04/2307/01 History lisinopril 20 mg tablet 20 mg PO QAM 30 days #30 tab s 08/23/23 07/01/25 Rx furosemide 40 mg tablet 40 mg PO DAILY 05/16/2406/04 History apixaban 5 mg tablet (Eliquis) 5 mg PO BID 11/10/24 History blood sugar diagnostic (OneTouch #1 pkg 01/24/2507/01 Rx Verio test strips) blood-glucose meter (OneTouch #1 pkg 01/24/25 07/01/25 Rx Verio Flex Meter) insulin aspart U-100 100 unit/mL 1 sliding scale dose subcut 01/24/25 07/01/25 Rx (3 mL) subcutaneous pen USEASDIRECTD #15 mL insulin glargine 100 unit/mL (3 30 unit (0.3 mL) subcu t QAM #15 mL 01/24/25 07/01/25 Rx mL) subcutaneous pen (Lantus Solostar U-100 Insulin) lancets 30 gauge (OneTouch Delica #1 pkg 01/24/2506/04 Rx Plus Lancet) pen needle, diabetic 32 gauge x #1,200 ea 01/24/25 Rx 5/32 Allergies Allergy/AdvReac Type Severity Reaction Status Date / Time ceftriaxone (From Rocephin) Allergy Severe Other Verified 07/01/25 02:56 hydrocodone Allergy Mild Hives Verified 07/01/25 02:56 oxycodone Allergy Mild Hives Verified 07/01/25 02:56 Vital Signs Vital Signs - 24 hr 07/01/25 02:45 07/01/25 03:40 07/01/25 03:40 Temperature 98.4 F Pulse Rate 92 93 93 Respiratory Rate 18 20 Blood Pressure 153/86 H 170/94 H Pulse Oximetry 98 96 07/01/25 04:01 07/01/25 05:01 07/01/25 07:30 Temperature Pulse Rate 97 91 89 Respiratory Rate 24 H 20 18 Blood Pressure 160/86 H 146/89 H 147/88 H Pulse Oximetry 98 100 100 Exam Narrative: AF 98.4 147/88 89 18 100% ra Gen - well appearing female in no acute respiratory distress who is nontoxic- appearing lying semi recumbent in bed HEENT - normocephalic. Atraumatic. Pupils are clouded. Sclera injected. Nares patent. Oropharynx was poorly visualized. No oral lesions. Moist mucous membranes. Tongue was midline. Palate wilmar symmetrically. No facial asymmetry. Neck - neck was supple. No dominant adenopathy, thyromegaly or masses. 2+ carotid upstrokes without bruits. Chest - lungs are clear to auscultation bilaterally. No wheezes or crackles. Breast exam was deferred. Left upper chest tunneled dialysis catheter to left IJ CV - heart was regular rate and rhythm. S1-S2. No murmurs gallops or rubs. Abd - abdomen was soft. Nontender. Obese. Positive bowel sounds. No organomegaly or masses. Ext - left AKA. Right LE with two shallow ulcers with drainage. Right heel ulcer without significant surrounding erythema (area is covered with gel). Dried scaly RLE skin diffusely Neuro - patient is alert and oriented x4. Strength is 5/5 in both upper and right lower extremities. Cranial nerves 2-12 are intact. Speech is clear. Psych - normal mood and affect. Patient is pleasant and cooperative. Skin - warm and dry. H&P: Results Labs Labs: Short CBC 07/01/25 Range/Units 03:26 WBC 13.7 H (4.5-10.0) K/mm3 Hgb 11.5 L (12.0-15.0) g/dL Hct 37.6 (37.0-47.0) % Plt Count 360 (150-375) k/mm3 BMP 07/01/25 03:26 Sodium 127 L Potassium 4.5 Chloride 101 Carbon Dioxide 15 L BUN 32 H D Creatinine 5.26 H Glucose 757 H* Calcium 7.8 L Cardiac Enzymes 07/01/25 Range/Units 03:26 Troponin I < 0.012 (0.000-0.034) ng/mL Liver Function 07/01/25 Range/Units 03:26 Total Bilirubin 0.1 L (0.2-1.3) mg/dL AST 17 (14-36) U/L ALT 13 (6-35) U/L Alkaline Phosphatase 221 H (38-126) U/L Albumin 3.1 L (3.5-5.1) g/dL Assessment and Plan Assessment and plan (1) Chest pain: Code(s): R07.9 - Chest pain, unspecified Status: Acute Assessment and Plan: Patient presents withchest pain occurring at rest lasting about 30 seconds. Troponin negative x2 (5hrs apart). EKG showing NSR, LAE, poor R wave progression and inferior ST-T changes. Atypical chest pain. Negative workup but still at high risk for coronary disease. Consider musculoskeletal or GB pain. Resume Coreg. Add ASA and Lipitor. Echo from March reviewed. Check lipid panel. Plan for outpatient ischemic evaluation (2) Diabetic ketoacidosis: Code(s): E11.10 - Type 2 diabetes mellitus with ketoacidosis without coma Status: Acute Assessment and Plan: Patient presents with chest pain but no n/v and found to have glucose of 757. Bicarb low at 15 with normal AG. VBG 7.23/40/42 on RA. [place] she has early DKA related to poor compliance Insulin gtt and IV fluids started. DKA protocol in place. Check UPT. Bull Ladle Tender consult and appreciate their input. (3) Diabetes mellitus: Code(s): E11.9 - Type 2 diabetes mellitus without complications Status: Chronic Assessment and Plan: Patient with longstanding, uncontrolled DM as seen with end stage organ disease. A1c >14 multiple times this year. Last 2 years, A1c was 5.9-7.0. Unclear why she has become less diligent with glucose control. Start AccuCheks covering with sliding scale. Hypoglycemia protocol available as needed. 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 Dietitian consult. (4) End-stage renal disease (ESRD): Code(s): N18.6 - End stage renal disease Status: Acute Assessment and Plan: Patient with ESRD x 2 years. -- schedule. Due for dialysis today Nephrology consult. (5) Chronic heel ulcer: Qualifiers: Laterality: right Non-pressure ulcer stage: unspecified non-pressure ulcer stage Qualified Code(s): L97.419 - Non-pressure chronic ulcer of right heel and midfoot with unspecified severity Code(s): L97.409 - Non-pressure chronic ulcer of unspecified heel and midfoot with unspecified severity Status: Chronic Assessment and Plan: Patient with chronic right heel ulcer that clinically does not appear infected. Rt Foot xray showing no acute bone or joint abnormalities. BCx collected. Started on Zosyn and Vancomycin Follow up on cultures. Wound care consult. Continue daily dressing changes. (6) Anemia: Code(s): D64.9 - Anemia, unspecified Status: Chronic Assessment and Plan: Chart review showing workup in the past consistent with anemia of chronic disease felt related to her ESRD. Hgb 11.5 but normally runs 9-10 earlier this year Follow (7) Obstructive sleep apnea: Code(s): G47.33 - Obstructive sleep apnea (adult) (pediatric) Status: Acute Assessment and Plan: Patient has not had a formal polysomnogram but had positive ApneaLink August 2023. Will need to arrange as outpatient (8) Hypertension: Code(s): I10 - Essential (primary) hypertension Status: Chronic Assessment and Plan: Patient's blood pressure reasonably well controlled. Will review her home medications and resume appropriate meds. (9) CHF (congestive heart failure): Qualifiers: Heart failure chronicity: acute on chronic Heart failure type: unspecified Qualified Code(s): I50.9 - Heart failure, unspecified Code(s): I50.9 - Heart failure, unspecified Status: Chronic Assessment and Plan: Patient with hx of chronic diastolic CHF. 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
[2025-07-01] MEDS: VANCOMYCIN 2,000 MG/NS 500 ML 2,000 MG/500 ML BAG 250 MG IVPB (08:08)
[2025-07-01 08:47] LABS: Anion Gap 11 mmol/L (4-12); Blood Urea Nitrogen 31 mg/dL (7-17); Calcium 7.9 mg/dL (8.4-10.2); Carbon Dioxide 13 mmol/L (22-30); Chloride 107 mmol/L (98-107); Estimated CRCL calculation 21 ml/min; Estimated Glomerular Filt Rate 10; Glucose 424 mg/dL (65-110); Magnesium 1.7 mg/dL (1.6-2.3); Potassium 4.2 mmol/L (3.4-5.0); Sodium 131 mmol/L (137-145)
[2025-07-01 09:21] LABS: MRSA (PCR) NOT DETECTED (NOT DETECTE)
[2025-07-01 09:25] LABS: Troponin I < 0.012 ng/mL (0.000-0.034)
--- NOTE | 2025-07-01 09:41 | ADMGEN ---
This patient, Gay Canales, was admitted to Intensive Care Unit-7 at 0909. Patient/family oriented to hospital policies and general routines including ID bracelet, bed and alarms, visiting hours, pain management, procedures, bathroom and other care routines, personal items, smoking policy, room service/diet, and visiting hours. Information on how to activate the Rapid Response Team has been discussed. Patient/Family are encouraged to report perceived risks to care and to ask questions if they do not understand what they are told or what they should do.
[2025-07-01 10:00] LABS: Hemoglobin A1C > 14.0 % (<5.7)
[2025-07-01] MEDS: KCL 20 MEQ/D5/0.45% SOD CHL 1,000 ML 150 ML IV CONT (10:15)
--- NOTE | 2025-07-01 11:45 | PCDIET ---
Nutrition consult for DKA. Patient currently NPO. Dialysis M/W/F at [facility] in [place]. Patient is also followed by Renal RD weekly. Left AKA noted. No nutritional interventions needed at this time.
--- NOTE | 2025-07-01 11:52 | WPDCNINT ---
Assessment and Plan Assessment and plan (1) Hyperosmolar hyperglycemic state (HHS): Code(s): E11.00 - Type 2 diabetes mellitus with hyperosmolarity without nonketotic hyperglycemic-hyperosmolar coma (NKHHC) Status: Acute Assessment and Plan: Patient presented with chest pain, generalized weakness, some shortness of breath and headache -in the ED was found to have blood sugars > 700, normal bowel anion gap -diagnosed with HHS, was given 2 L IV fluid bolus and started on insulin drip per DKA protocol and transferred to the ICU for further manage -blood sugars have come down well, continue insulin infusion for now -will transition to long-acting insulin and sliding scale insulin once anion gap closes -on a certified adapted physical educator and dietitian has been consulted -hemoglobin A1c > 14.0 this admission (2) Diabetes mellitus: Code(s): E11.9 - Type 2 diabetes mellitus without complications Status: Chronic Assessment and Plan: Poor compliance with diabetic medications, treatment as above for now (3) Chest pain: Code(s): R07.9 - Chest pain, unspecified Status: Acute Assessment and Plan: Patient presented with chest pain, intermittent, sharp. -EKG with no ST elevations, the inferior leads at some ST-T changes -atypical chest pain could be related to diabetic cardiac disease -will obtain echocardiogram, ischemic evaluation will depend upon the echo results -patient was restarted on Coreg, aspirin and Lipitor -check lipid panel - (4) End-stage renal disease on hemodialysis: Code(s): N18.6 - End stage renal disease; Z99.2 - Dependence on renal dialysis Status: Acute Assessment and Plan: End-stage renal disease, follows with Dr. Millan, on dialysis M, W, F -nephrology following the patient -dialysis per artists' booking representative (5) Chronic heel ulcer: Qualifiers: Laterality: right Non-pressure ulcer stage: unspecified non-pressure ulcer stage Qualified Code(s): L97.419 - Non-pressure chronic ulcer of right heel and midfoot with unspecified severity Code(s): L97.409 - Non-pressure chronic ulcer of unspecified heel and midfoot with unspecified severity Status: Chronic Assessment and Plan: Chronic heel ulcer -will obtain Gram stain and culture of right heel ulcer -wound care has been consult, if it requires debridement will consult surgery (6) Obstructive sleep apnea: Code(s): G47.33 - Obstructive sleep apnea (adult) (pediatric) Status: Acute Assessment and Plan: Positive Apnea and August 2023 -patient will require polysomnogram as outpatient (7) CHF (congestive heart failure): Qualifiers: Heart failure chronicity: acute on chronic Heart failure type: unspecified Qualified Code(s): I50.9 - Heart failure, unspecified Code(s): I50.9 - Heart failure, unspecified Status: Chronic Assessment and Plan: Compensated diastolic heart failure 03/10/2025: Echocardiogram: Summary 1. Complete two-dimensional, color flow and Doppler transthoracic echocardiogram is performed. 2. There is normal biventricular size and systolic function. 3. There are no significant valvular abnormalities (8) Hypertension: Code(s): I10 - Essential (primary) hypertension Status: Chronic Assessment and Plan: Will start Coreg large blood pressures are stable -she also takes lisinopril, Lasix and amlodipine which currently on hold Plan DVT prophylaxis: Apixaban Stress ulcer prophylaxis: Not indicated Nutrition: Ice chips Code Status: Full code Critical Care Time Spent: 49 minutes Discussed with patient and updated with her condition and plan of care. I answered all her questions Due to a high probability of clinically significant, life threatening deterioration, the patient required my highest level of preparedness to intervene emergently and I personally spent this critical care time directly and personally managing the patient. This critical care time included obtaining a history; examining the patient; pulse oximetry; ordering and review of studies; arranging urgent treatment with development of a management plan; evaluation of patient's response to treatment; frequent reassessment; and discussions with other providers. It was exclusive of separately billable procedures and treating other patients and teaching time. Please see Assessment and Plan section and the rest of the note for further information on patient assessment and treatment This dictation may have been done utilizing a voice recognition system. Attempts have been made to correct errors. However, there may be uncorrected grammatical, spelling, and recognitions errors present. Analytical Research Program Manager Consult Note Consult date: 07/01/25 Reason for consult: Chest pain, hyperosmolar hyperglycemic state HPI: Gay Canaels is a 34 year old female with past medical history of diabetes, diastolic congestive heart failure, essential hypertension, obstructive sleep apnea, septic arthritis and osteomyelitis of the right shoulder, anemia of chronic disease, end-stage renal disease on hemodialysis, Mondays, Wednesdays, Fridays. History of diabetic neuropathy, diabetic retinopathy with blindness in her both eyes, chronic diabetic right heel ulcer, , left AKNishant, presented the ED on 07/01/2025 with complains of chest pain which is intermittent and across her upper chest, sharp pain associated with some shortness of breath. Sitting up worsen the pain. Pain radiated to her right shoulder and neck. She denies any fevers or chills, complained of feeling weak. Patient does not check her blood sugars at home, she is on Lantus 30 units daily without mealtime insulin. She was recently prescribed Trulicity and stated she cannot afford 8 as it costs $1100/month. Patient lives with her sister who who have so with meals, appointments on trips to dialysis, does daily dressing changes and did not mention to the patient other wound was worsening. Off note patient was seen in the ED on 06/06/2025 and was treated with doxycycline for possible left upper lobe pneumonia. In the ER patient was hemodynamically stable, WBC count of 13.7, hemoglobin 11.5 platelets 360. Sodium 127, potassium 4.5, CO2 15, BUN 32, creatinine 5.26, blood sugars 756. Lactic acid 1.6, LFTs are within normal limits, troponins < 0.012 x2. Alcohol < 10, lipase 118. Anion gap was 11. EKG showed normal sinus rhythm with NO acute ST elevations, poor R-wave progression and inferior ST-T changes. Patient was diagnosed with hyperosmolar hyperglycemic state. Patient was given 2 L IV fluid bolus S, started on insulin infusion per DKA protocol and transferred to the ICU for further management. She was also treated with Tylenol and Toradol for headaches, chest and neck pain. Patient was also started on Zosyn and vancomycin for her right heel ulcer which was foul-smelling Patient was seen and examined upon arrival to the ICU, hemodynamically stable, states she feels little better with the IV fluids continues to have a little headache and wants some pain medications. She states she is blind from both eyes and cannot see, she does make some urine. She has been regular with her dialysis but does not check her blood sugars regularly. 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 Septic arthritis of shoulder, left (05/2024) Diastolic heart failure secondary to hypertension EF 70% with grade 2 diastolic dysfunction echocardiogram August 2023 Anemia in chronic kidney disease End-stage renal disease on hemodialysis Hemodialysis initiated August 2023 Glaucoma Blind in both eyes (~03/2023) Occurred acutely March 2023 Diabetic neuropathy Hyperlipidemia Chronic heel ulcer Chronic heel ulcer on the left foot developed November 2022 with acute decompensation and subsequent above the knee amputation, now with a persistent right heel ulcer since the fall of 2022. Hypertension Surgical History Surgical History History of left above knee amputation Due to osteomyelitis. History of cataract extraction Status post insertion of dialysis catheter (08/2023) Right subclavian Family History Family History Father Diabetes mellitus Hypertension Mother Hypertension Obesity Sibling Diabetes mellitus, Onset Age: 28 Sibling Unknown family medical history Does not see a doctor Diabetes mellitus Social History Social History Social History: Rare tobacco use. No alcohol or drug use. No pets. Lives with sister. Surrogate decision maker: Kianna Nunez, sister ([phone]). Code status: Full code. Smoking status: Never smoker Additional smoking assessment comments: never smoked cigarettes Alcohol intake: never Drinks per week: 0 Substance use: never Substance use type: does not use Do You Feel Safe in your Home?: Yes Lack of Transportation: No Lack of Food: Never True Current Housing: I Have Housing Concerned About Future Housing: No Difficulty Paying Gas/Electric Bills: No Difficulty Paying for Meds: YES Currently Unemployed: No Education: High School Diploma/GED Difficulty w/ Childcare or Family Care: No Additional living arrangements comments: Lives with sister in [place]. 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 Spiritual care concerns: No Meds Home Medications and Allergies Home Medications ?Medication ?Instructions ?Recorded ?Confirmed ?Type amlodipine 10 mg tablet 10 mg PO DAILY 08/04/23 07/01/25 History carvedilol 12.5 mg tablet 25 mg PO Q12H 08/04/23 07/01/25 History lisinopril 20 mg tablet 20 mg PO QAM 30 days #30 tabs 08/23/23 07/01/25 Rx furosemide 40 mg tablet 40 mg PO DAILY 05/16/24 07/01/25 History apixaban 5 mg tablet (Eliquis) 5 mg PO BID 11/10/24 07/01/25 History blood sugar diagnostic (OneTouch #1 pkg 01/24/25 07/01/25 Rx Verio test strips) blood-glucose meter (OneTouch #1 pkg 01/24/25 07/01/25 Rx Verio Flex Meter) insulin aspart U-100 100 unit/mL 1 sliding scale dose subcut 01/24/25 07/01/25 Rx (3 mL) subcutaneous pen USEASDIRECTD #15 mL insulin glargine 100 unit/mL (3 30 unit (0.3 mL) subcut QAM #15 mL 01/24/25 07/01/25 Rx mL) subcutaneous pen (Lantus Solostar U-100 Insulin) lancets 30 gauge (OneTouch Delica #1 pkg 01/24/25 07/01/25 Rx Plus Lancet) pen needle, diabetic 32 gauge x #1,200 ea 01/24/25 07/01/25 Rx 5/32 Allergies Allergy/AdvReac Type Severity Reaction Status Date / Time ceftriaxone (From Rocephin) Allergy Severe Other Verified 07/01/25 02:56 hydrocodone Allergy Mild Hives Verified 07/01/25 02:56 oxycodone Allergy Mild Hives Verified 07/01/25 02:56 Vital Signs Vital Signs - 24 hr 07/01/25 02:45 07/01/25 03:40 07/01/25 03:40 Temperature 98.4 F Pulse Rate 92 93 93 Respiratory Rate 18 20 Blood Pressure 153/86 H 170/94 H Pulse Oximetry 98 96 07/01/25 04:01 07/01/25 05:01 07/01/25 07:30 Temperature Pulse Rate 97 91 89 Respiratory Rate 24 H 20 18 Blood Pressure 160/86 H 146/89 H 147/88 H Pulse Oximetry 98 100 100 07/01/25 09:32 07/01/25 10:00 07/01/25 10:00 Temperature 97.8 F Pulse Rate 89 89 91 Respiratory Rate 18 20 Blood Pressure 127/66 141/88 H Pulse Oximetry 98 99 Exam Narrative: General: Pleasant female in no acute distress HEENT:? Pupils are cloudy, sclera clear Neck:? Supple Respiratory:? Clear to auscultation bilaterally, no wheezing, adequate air entry, left upper chest tunneled dialysis catheter to the left IJ Cardiac:? S1-S2 normal, regular rate and rhythm, no murmurs Abdomen:? Soft, nontender, nondistended, obese, normoactive bowel sounds Extremities:? Left AKA, right lower extremity 2 shallow foul-smelling ulcers with drainage, right heel with mild erythema. Neuro:? Patient is awake, alert, oriented, nonfocal, follows simple commands and answers to questions appropriately Skin:? Skin is warm, Dry scaly skin on the right lower extremity Psych:? Normal mentation and affect Results Labs 07/01/25 03:26 07/01/25 08:24 Labs: Short CBC 07/01/25 Range/Units 03:26 WBC 13.7 H (4.5-10.0) K/mm3 Hgb 11.5 L (12.0-15.0) g/dL Hct 37.6 (37.0-47.0) % Plt Count 360 (150-375) k/mm3 BMP 07/01/25 07/01/25 03:26 08:24 Sodium 127 L 131 L Potassium 4.5 4.2 Chloride 101 107 Carbon Dioxide 15 L 13 L BUN 32 H D 31 H Creatinine 5.26 H 4.96 H Glucose 757 H* 424 H Calcium 7.8 L 7.9 L Cardiac Enzymes 07/01/25 07/01/25 Range/Units 03:26 08:24 Troponin I < 0.012 < 0.012 (0.000-0.034) ng/mL Liver Function 07/01/25 Range/Units 03:26 Total Bilirubin 0.1 L (0.2-1.3) mg/dL AST 17 (14-36) U/L ALT 13 (6-35) U/L Alkaline Phosphatase 221 H (38-126) U/L Albumin 3.1 L (3.5-5.1) g/dL Quality VTE Prophylaxis VTE prophylaxis: pharmacologic ordered Hospitalist MIPS Advance Care Plan I have confirmed that the patient's Advanced Care Plan is present, code status is documented, or surrogate decision maker is listed in patient medical record.: Yes Medication Reconciliation I have utilized all available resources to obtain, update and review the patients current medications (includes all prescriptions, OTC, herbals, cannabis, and nutritional supplements).: Yes
--- NOTE | 2025-07-01 12:10 | P.CONNP_ITS ---
Assessment and Plan Assessment and plan (1) End stage renal disease: Code(s): N18.6 - End stage renal disease Status: Chronic Assessment and Plan: * plan HD tomorrow * eventually transition back Fri/Fri/Friday dialysis schedule while hospitalized * follow electrolytes, volume status, and clearance (2) Hyperosmolar hyperglycemic state (HHS): Code(s): E11.00 - Type 2 diabetes mellitus with hyperosmolarity without nonketotic hyperglycemic-hyperosmolar coma (NKHHC) Status: Acute Assessment and Plan: * noted to have blood sugars > 700 with normal anion gap * s/p 2 L IV fluid bolus and started on insulin drip per DKA protocol * transition to long-acting insulin and sliding scale insulin once blood sugars stabilize * see #8 (3) Chest pain: Code(s): R07.9 - Chest pain, unspecified Status: Acute Assessment and Plan: * noted on presentation * EKG with no ST elevations or ischemic changes * however, inferior leads at some ST-T changes * troponin negative x 2 * repeat Echo ordered * continues carvedilol + ASA + statin (4) Chronic heel ulcer: Qualifiers: Laterality: right Non-pressure ulcer stage: unspecified non-pressure ulcer stage Qualified Code(s): L97.419 - Non-pressure chronic ulcer of right heel and midfoot with unspecified severity Code(s): L97.409 - Non-pressure chronic ulcer of unspecified heel and midfoot with unspecified severity Status: Chronic Assessment and Plan: * rule out infection * follow-up on gram statin and culture * follow blood cultures * would care consulted * on antibiotics (5) CHF (congestive heart failure): Qualifiers: Heart failure chronicity: acute on chronic Heart failure type: u nspecified Qualified Code(s): I50.9 - Heart failure, unspecified Code(s): I50.9 - Heart failure, unspecified Status: Chronic Assessment and Plan: * appears compensated at this time * fluid removal with HD to maintain euvolemia * repeat Echo ordered (6) Anemia: Code(s): D64.9 - Anemia, unspecified Status: Chronic Assessment and Plan: * due to ESRD and acute illness * Retacrit with HD * follow H/H (7) Hypertension: Code(s): I10 - Essential (primary) hypertension Status: Chronic Assessment and Plan: * reasonably control * soft BP on admission * BP medications with parameters * follow trend of hemodynamics (8) Diabetes mellitus: Code(s): E11.9 - Type 2 diabetes mellitus without complications Status: Chronic Assessment and Plan: * poor control at baseline (A1c > 14) * follow accu-cheks * glycemic control per hospitalist I will continue to follow the patient with you while she remains hospitalized make further recommendations as deemed necessary. Thank you for allowing me to participate in the care of this patient. L History of Present Illness Reason for Consult Consult date: 07/01/25 Reason for consult: end stage renal disease Chief Complaint Chief complaint: HHS/Infected Diabetic Ulcer History of Present Illness Narrative: The patient is a 34y/o female with and extensive medical history as outlined below who presented to [facility] ER with complaints of chest pain. The chest pain began around 8pm while she was at rest. The ain was localized across her chest diffusely and described as sharp sensation. The pain lasted approximately 30 seconds and was associated with some shortness of breath. She stated the pain was worse with sitting up but nothing else seemed to make it worse and radiated to her right shoulder and neck. Her chest discomfort eventually resolved but neck/shoulder pain persisted and described it as throbbing sensation. She has had right shoulder pain in the past. Other symptoms included a slight nonproductive cough but no over fever or chills as far as she is aware. No odynophagia, dysphagia, nausea, vomiting, diarrhea, dysuria or hematuria. Given these symptoms and her somewhat complex medical history, she presented to the ER for further assessment. She was noted to be hemodynamically stable on presentation to the ER. Routine testing demonstrated a WBC was 13.7K with Hgb 11.5 and normal platelet count. PT/PTT normal. VBG 7.23/40/42 on room air, sodium 127, bicarb 15 (AG 11), BUN 32 and creatinine 5.3, glucose 757, troponin <0.012, normal lipase and alcohol level <10. Influenza, RSV and COVID viral testing was negative. Her CXR was negative for any acute pathology. CT of the chest with improving coarse interstitial densities of the upper and left lower lobes, likely chronic interstitial lung disease or scarring, interval resolution of groundglass opacities bilaterally, abnormal number of borderline size lymph nodes mediastinum, likely reactive. Her Foot xray showed no acute bone or joint abnormalities. EKG with NSR, LAE, poor R wave progression and inferior ST-T changes. She was treated with Toradol, Tylenol, Regular insulin IV and IV fluid bolus. She was started on Zosyn and Vancomycin empirically after appropriate cultures were obtained. Insulin drip started with IV fluids and admitted to the ICU for further care. Renal consultation was requested due to her end-stage renal disease. The patient is quite familiar to me as I take care of her outpatient dialysis needs since her initiation on renal replacement therapy/dialysis. The patient was initiated on renal replacement therapy/dialysis in late 2022 more so for control of her fluid status as she was diuretic resistant and unable to achieve euvolemia with conservative therapy on her hospitalization here at [facility] in August 2023. It was hoped that dialysis would be a temporary measure but she did have significant chronic kidney disease at baseline even prior to her initiation of renal replacement therapy. Despite multiple interventions and testing with regard to 24 hr urine collections, her renal function did not significantly recover to discontinue dialysis and given the length of time that she has been on dialysis in general, it was felt that she had progressed to end-stage renal disease. She currently receives dialysis on a Friday, Friday, Friday schedule at the [facility] under my care. Her last dialysis session was on 06/28/25. She has been compliant with her dialysis [facility] there are times when she ends her treatment early. She is due for dialysis today but her no critical electrolytes noted and her volume status is stable at this time. At the time my evaluation, she appears in no acute distress and is resting comfortably. Review of Systems 2 Review of Systems: As per HPI. 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 Septic arthritis of shoulder, left (05/2024) Diastolic heart failure secondary to hypertension EF 70% with grade 2 diastolic dysfunction echocardiogram August 2023 Anemia in chronic kidney disease End-stage renal disease on hemodialysis Hemodialysis initiated August 2023 Glaucoma Blind in both eyes (~03/2023) Occurred acutely March 2023 Diabetic neuropathy Hyperlipidemia Chronic heel ulcer Chronic heel ulcer on the left foot developed November 2022 with acute decompensation and subsequent above the knee amputation, now with a persistent right heel ulcer since the fall of 2022. Hypertension Surgical History Surgical History History of left above knee amputation Due to osteomyelitis. History of cataract extraction Status post insertion of dialysis catheter (08/2023) Right subclavian Family History Family History Father Diabetes mellitus Hypertension Mother Hypertension Obesity Sibling Diabetes mellitus, Onset Age: 28 Sibling Unknown family medical history Does not see a doctor Diabetes mellitus Social History Social History (Updated 07/01/25 @ 12:25 by Juan Ortega MD) Social History: Rare tobacco use. No alcohol or drug use. No pets. Lives with sister. Surrogate decision maker: Kianna Nunez, sister ([phone]). Code status: Full code. Smoking status: Never smoker Additional smoking assessment comments: never smoked cigarettes Alcohol intake: never Drinks per week: 0 Substance use: never Substance use type: does not use Do You Feel Safe in your Home?: Yes Lack of Transportation: No Lack of Food: Never True Current Housing: I Have Housing Concerned About Future Housing: No Difficulty Paying Gas/Electric Bills: No Difficulty Paying for Meds: YES Currently Unemployed: No Education: High School Diploma/GED Difficulty w/ Childcare or Family Care: No Additional living arrangements comments: Lives with sister in [place]. 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 Spiritual care concerns: No Meds Home Medications and Allergies Home Medications ?Medication ?Instructions ?Recorded ?Confirmed ?Type amlodipine 10 mg tablet 10 mg PO DAILY 08/04/2306/04 History carvedilol 12.5 mg tablet 25 mg PO Q12H 08/04/2307/01 History lisinopril 20 mg tablet 20 mg PO QAM 30 days #30 tab s 08/23/23 07/01/25 Rx furosemide 40 mg tablet 40 mg PO DAILY 05/16/2406/04 History apixaban 5 mg tablet (Eliquis) 5 mg PO BID 11/10/24 History blood sugar diagnostic (OneTouch #1 pkg 01/24/2507/01 Rx Verio test strips) blood-glucose meter (OneTouch #1 pkg 01/24/25 07/01/25 Rx Verio Flex Meter) insulin aspart U-100 100 unit/mL 1 sliding scale dose subcut 01/24/25 07/01/25 Rx (3 mL) subcutaneous pen USEASDIRECTD #15 mL insulin glargine 100 unit/mL (3 30 unit (0.3 mL) subcu t QAM #15 mL 01/24/25 07/01/25 Rx mL) subcutaneous pen (Lantus Solostar U-100 Insulin) lancets 30 gauge (OneTouch Delica #1 pkg 01/24/2506/04 Rx Plus Lancet) pen needle, diabetic 32 gauge x #1,200 ea 01/24/25 Rx Allergies Allergy/AdvReac Type Severity Reaction Status Date / Time ceftriaxone (From Rocephin) Allergy Severe Other Verified 07/01/25 02:56 hydrocodone Allergy Mild Hives Verified 07/01/25 02:56 oxycodone Allergy Mild Hives Verified 07/01/25 02:56 Vital Signs Vital Signs Temp Pulse Resp BP Pulse Ox O2 Del Method 07/01/25 12:00 98.4 F 82 18 115/63 97 Room Air 07/01/25 10:00 91 07/01/25 10:00 89 20 141/88 H 99 07/01/25 09:32 97.8 F 89 18 127/66 98 07/01/25 07:30 89 18 147/88 H 100 07/01/25 05:01 91 20 146/89 H 100 07/01/25 04:01 97 24 H 160/86 H 98 07/01/25 03:40 93 20 170/94 H 96 07/01/25 03:40 93 07/01/25 02:45 98.4 F 92 18 153/86 H 98 Exam 2 Narrative: GENERAL APPEARANCE: well developed well nourished female in no acute distress HEENT: wearing sunglasses but nares patient NECK: no lymphadenopathy, thyromegaly, or JVD MOUTH: normal lips, teeth, and gums CARDIOVASCULAR: RRR, normal S1 and S2, no rub RESPIRATORY: clear to auscultation bilaterally ABDOMEN: obese but soft, nontender, nondistended, positive bowel sounds present EXTREMITIES: no evidence of cyanosis, clubbing, or edema; s/p left AKA SKIN: right lower extremity with 2 shallow foul-smelling ulcers with drainage; right heel with mild erythema NEUROLOGICAL: alert and oriented x 3; no focal deficits noted Results Lab Results 07/01/25 03:26 07/01/25 23:56 Lab results: Most recent lab results Calcium 7.9 mg/dL (8.4-10.2) L 07/01/25 12:48 Phosphorus 5.3 mg/dL (2.5-4.5) H 07/01/25 08:24 Magnesium 1.7 mg/dL (1.6-2.3) 07/01/25 08:24
[2025-07-01 13:08] LABS: Cholesterol 131 mg/dL (0-200); HDL Direct 26 mg/dL; Triglycerides 108 mg/dL (<150)
[2025-07-01 13:09] LABS: Anion Gap 7 mmol/L (4-12); Blood Urea Nitrogen 29 mg/dL (7-17); Calcium 7.9 mg/dL (8.4-10.2); Carbon Dioxide 17 mmol/L (22-30); Chloride 110 mmol/L (98-107); Estimated CRCL calculation 20 ml/min; Estimated Glomerular Filt Rate 10; Glucose 106 mg/dL (65-110); Potassium 4.1 mmol/L (3.4-5.0); Sodium 134 mmol/L (137-145)
[2025-07-01 13:10] LABS: SPREG INTERNAL CONTROL Positive; Serum Qual hCG Negative
[2025-07-01 13:12] LABS: Add Urine Microscopic? YES; Appearance Urine Cloudy (Clear); Glucose Urine UA 3+ mg/dL (Negative); Leukocyte Esterase Ur 1+ LEU/UL (Negative); Need Manual Microscopic Reviewed; Nitrate Urine Negative (Negative); Specific Grav Ur 1.019 (1.001-1.035)
[2025-07-01 13:26] LABS: Cannabinoid Screen Urine Negative (Negative)
[2025-07-01] MEDS: ATORVASTATIN 20 MG TABLET PO (13:49)
[2025-07-01] MEDS: INSULIN GLARGINE (*BKC) 100 UNITS/ML 30 UNITS SUB-Q (13:49)
[2025-07-01] MEDS: PIPERACILLIN/TAZOBACTAM SOD 2.25 GM in SODIUM CHLORIDE 0.9% IV 50 ML 100 ML IVPB ×2 (13:50→21:18)
[2025-07-01] MEDS: ASPIRIN 81 MG CHEWABLE TABLET PO (13:50)
[2025-07-01 16:47] LABS: Anion Gap 8 mmol/L (4-12); Blood Urea Nitrogen 30 mg/dL (7-17); Calcium 7.7 mg/dL (8.4-10.2); Carbon Dioxide 15 mmol/L (22-30); Chloride 110 mmol/L (98-107); Estimated CRCL calculation 20 ml/min; Estimated Glomerular Filt Rate 10; Glucose 234 mg/dL (65-110); Potassium 4.2 mmol/L (3.4-5.0); Sodium 133 mmol/L (137-145)
[2025-07-01] MEDS: INSULIN ASPART (*BKC) 100 UNITS/ML SUB-Q ×2 (17:45→20:25)
--- NOTE | 2025-07-01 19:11 | PC.NURSE ---
This patient, Gay Canales, was transferred to [facility] on 07/01/25 at 1851. Personal belongings sent with patient. Traveled with patient to the new room. Appropriate documentation sent with patient.
[2025-07-01] MEDS: APIXABAN 5 MG TABLET PO (20:24)
[2025-07-01 21:07] LABS: Anion Gap 11 mmol/L (4-12); Blood Urea Nitrogen 32 mg/dL (7-17); Calcium 7.8 mg/dL (8.4-10.2); Carbon Dioxide 13 mmol/L (22-30); Chloride 108 mmol/L (98-107); Estimated CRCL calculation 20 ml/min; Estimated Glomerular Filt Rate 10; Glucose 345 mg/dL (65-110); Potassium 4.9 mmol/L (3.4-5.0); Sodium 132 mmol/L (137-145)
[2025-07-01] MEDS: LIDOCAINE 5% PATCH 1 PATCH TRANSDERM (21:17)
[2025-07-01] MEDS: HYDROcodone/acetaminophen (*CRX) 5-325 MG TABLET 1 TAB PO (22:38)
[2025-07-02] VITALS (33 sets, daily range): BP systolic 108–155; BP diastolic 69–96; PULSE 83–96; RESP 16–21; TEMP 36.6–37.5; O2SAT 97–100
[2025-07-02 00:15] LABS: Anion Gap 9 mmol/L (4-12); Calcium 7.7 mg/dL (8.4-10.2); Carbon Dioxide 14 mmol/L (22-30); Chloride 108 mmol/L (98-107); Glucose 345 mg/dL (65-110); Potassium 4.6 mmol/L (3.4-5.0); Sodium 131 mmol/L (137-145)
[2025-07-02 00:28] LABS: Blood Urea Nitrogen 33 mg/dL (7-17); Estimated CRCL calculation 19 ml/min; Estimated Glomerular Filt Rate 9
--- NOTE | 2025-07-02 02:06 | PC.NURSE ---
Pt left floor for OR for urologic procedure
[2025-07-02 05:37] LABS: Hematocrit 37.2 % (37.0-47.0); Hemoglobin 11.2 g/dL (12.0-15.0); Immature Granulocyte Percent A 0.6 % (0-0.5); Lymphocytes Absolute Auto 2.66 K/mm3 (0.9-3.2); Mean Corpuscular HGB Conc 30.1 g/dl (32-36); Mean Corpuscular Hemoglobin 28.6 pg (26-34); Mean Corpuscular Volume 94.9 fl (80-100); Nucleated Red Blood Cells Absolute Auto 0.000 K/mm3 (0.0-0.012); Nucleated Red Blood Cells Perc 0.0 % (0.0-0.2); Platelet Count Result 358 k/mm3 (150-375); Red Blood Count 3.92 M/mm3 (4.2-5.4); White Blood Count 13.3 K/mm3 (4.5-10.0)
--- NOTE | 2025-07-02 05:53 | ECG_ITS ---
Test Date: 2025-07-02 06:08:19 Measurements Intervals [place] Rate: 84 P: 37 TN: 187 QRS: -13 QRSD: 100 T: 3 QT: 372 QTc: 440 Interpretive Statements SINUS RHYTHM DELAYED PRECORDIAL R/S TRANSITION MINIMAL Q WAVES- HIGH LATERAL LEADS BORDERLINE ECG Compared to ECG 07/01/2025 03:03:29 NO SIGNIFICANT CHANGE Electronically Signed On 07-02-2025 08:23:03 CDT by Azar Cook D.O.
[2025-07-02 06:12] LABS: Alanine Aminotransferase 13 U/L (6-35); Albumin Level 3.0 g/dL (3.5-5.1); Alkaline Phosphatase 160 U/L (38-126); Anion Gap 10 mmol/L (4-12); Aspartate Amino Transferase 18 U/L (14-36); Bilirubin,Total 0.3 mg/dL (0.2-1.3); Blood Urea Nitrogen 35 mg/dL (7-17); Calcium 8.0 mg/dL (8.4-10.2); Carbon Dioxide 14 mmol/L (22-30); Chloride 108 mmol/L (98-107); Estimated CRCL calculation 19 ml/min; Estimated Glomerular Filt Rate 9; Glucose 374 mg/dL (65-110); Magnesium 2.0 mg/dL (1.6-2.3); Sodium 132 mmol/L (137-145); Total Protein 6.8 g/dL (6.3-8.2)
[2025-07-02 06:19] LABS: Potassium 4.6 mmol/L (3.4-5.0)
[2025-07-02] MEDS: PIPERACILLIN/TAZOBACTAM SOD 2.25 GM in SODIUM CHLORIDE 0.9% IV 50 ML 100 ML IVPB ×3 (06:25→21:28)
[2025-07-02 06:44] LABS: Hepatitis B Surface Antigen Negative (Negative)
[2025-07-02 08:30] LABS: Hepatitis B Surface Anti Res Indeterminate
[2025-07-02] MEDS: LIDOCAINE 5% PATCH 1 PATCH TRANSDERM (09:09)
[2025-07-02] MEDS: ACETAMINOPHEN 325 MG TABLET 650 MG PO ×2 (09:09→16:55)
[2025-07-02] MEDS: ATORVASTATIN 20 MG TABLET PO (09:10)
[2025-07-02] MEDS: APIXABAN 5 MG TABLET PO ×2 (09:10→21:29)
[2025-07-02] MEDS: ASPIRIN 81 MG CHEWABLE TABLET PO (09:10)
[2025-07-02] MEDS: INSULIN ASPART (*BKC) 100 UNITS/ML SUB-Q ×2 (09:11→21:29)
[2025-07-02] MEDS: INSULIN GLARGINE (*BKC) 100 UNITS/ML 40 UNITS SUB-Q (09:12)
[2025-07-02] MEDS: ONDANSETRON INJ 4 MG/2 ML VIAL (09:30)
[2025-07-02] MEDS: ONDANSETRON INJ 4 MG/2 ML VIAL IV PUSH (09:31)
--- NOTE | 2025-07-02 11:31 | P.PNNP_ITS ---
Progress Note: A&P Assessment and Plan (1) End stage renal disease: Code(s): N18.6 - End stage renal disease Status: Chronic Assessment and Plan: * hemodialysis about to start * next treatment on Friday * follow electrolytes, volume status, and clearance (2) Hyperosmolar hyperglycemic state (HHS): Code(s): E11.00 - Type 2 diabetes mellitus with hyperosmolarity without nonketotic hyperglycemic-hyperosmolar coma (NKHHC) Status: Acute Assessment and Plan: * noted to have blood sugars > 700 with normal anion gap * now sugars running between 70 and 327. * see #8 (3) Chest pain: Code(s): R07.9 - Chest pain, unspecified Status: Acute Assessment and Plan: * noted on presentation * EKG with no ST elevations or ischemic changes * however, inferior leads at some ST-T changes * troponin negative x 2 * repeat Echo ordered . Last 1 done in March. * continues carvedilol + ASA + statin (4) Chronic heel ulcer: Qualifiers: Laterality: right Non-pressure ulcer stage: unspecified non-pressure ulcer stage Qualified Code(s): L97.419 - Non-pressure chronic ulcer of right heel and midfoot with unspecified severity Code(s): L97.409 - Non-pressure chronic ulcer of unspecified heel and midfoot with unspecified severity Status: Chronic Assessment and Plan: * rule out infection * follow-up on gram statin and culture * follow blood cultures * would care consulted * on antibiotics (5) CHF (congestive heart failure): Qualifiers: Heart failure chronicity: acute on chronic Heart failure type: unspecified Qualified Code(s): I50.9 - Heart failure, unspecified Code(s): I50.9 - Heart failure, unspecified Status: Chronic Assessment and Plan: * appears compensated at this timed chest x-ray is clear. * No edema an * fluid removal with HD to maintain euvolemia * repeat Echo ordered (6) Anemia: Code(s): D64.9 - Anemia, unspecified Status: Chronic Assessment and Plan: * due to ESRD and acute illness * Retacrit with HD * follow H/H (7) Hypertension: Code(s): I10 - Essential (primary) hypertension Status: Chronic Assessment and Plan: * Systolic 110 to 170s. * soft BP on admission * BP medications with parameters * See how things trend out and adjust meds accordingly. * Improved sugars may help decrease the blood pressure swings (8) Diabetes mellitus: Code(s): E11.9 - Type 2 diabetes mellitus without complications Status: Chronic Assessment and Plan: * poor control at baseline (A1c > 14) * follow accu-cheks * glycemic control per hospitalist I will continue to follow the patient with you while she remains hospitalized make further recommendations as deemed necessary. Thank you for allowing me to participate in the care of this patient. Subjective Date/time seen: 07/02/25 11:31 Interval history: patient lying in the hospital bed. She is in the dialysis room but had not started dialysis yet when I saw her. Patient feels okay Review of Systems Cardiovascular: Cardiovascular: Reports no additional cardiovascular complaints Respiratory: Respiratory: Reports no additional respiratory complaints Gastrointestinal: Gastrointestinal: Reports no additional gastrointestinal complaints Genitourinary: Genitourinary: Reports no additional female genitourinary complaints Exam Narrative: WDWN in NAD skin no rash head ncat lungs clear cor reg no rub abd BS+ nontender and soft ext no edema. Objective Data Vital Signs Vital Signs: Vital Signs - 24 hr 07/01/25 12:00 07/01/25 12:00 07/01/25 12:00 Temperature Pulse Rate 82 82 Respiratory Rate 18 Blood Pressure 115/63 Pulse Oximetry 97 Oxygen Delivery Room Air 07/01/25 12:30 07/01/25 14:00 07/01/25 14:00 Temperature 98.4 F 97.8 F Pulse Rate 90 83 Respiratory Rate 25 H Blood Pressure 163/90 H Pulse Oximetry 98 Oxygen Delivery 07/01/25 16:00 07/01/25 16:00 07/01/25 16:00 Temperature 99.2 F Pulse Rate 84 85 Respiratory Rate 17 Blood Pressure 150/88 H Pulse Oximetry 94 Oxygen Delivery Room Air 07/01/25 18:00 07/01/25 19:55 07/01/25 20:00 Temperature 98.2 F Pulse Rate 94 91 Respiratory Rate 16 Blood Pressure 126/71 Pulse Oximetry 99 Oxygen Delivery Room Air 07/01/25 20:00 07/01/25 20:24 07/01/25 21:54 Temperature Pulse Rate 92 95 88 Respiratory Rate Blood Pressure Pulse Oximetry Oxygen Delivery 07/01/25 23:00 07/01/25 23:58 07/02/25 00:00 Temperature 98.5 F Pulse Rate 83 83 Respiratory Rate 17 Blood Pressure 114/67 Pulse Oximetry 97 Oxygen Delivery Room Air 07/02/25 02:00 07/02/25 03:57 07/02/25 04:00 Temperature 98.3 F Pulse Rate 84 86 Respiratory Rate 20 Blood Pressure 127/76 Pulse Oximetry 99 Oxygen Delivery Room Air 07/02/25 04:00 07/02/25 06:00 07/02/25 08:00 Temperature 98.5 F Pulse Rate 84 85 85 Respiratory Rate 18 Blood Pressure 139/81 Pulse Oximetry 100 Oxygen Delivery Intake/Output Intake/Output: Intake & Output 06/29/25 06/30/25 07/01/25 07/02/25 23:59 23:59 23:59 23:59 Intake Total 2093.8 1200 Output Total 1060 50 Balance 1033.8 1150 Meds/Results Medications: Active Medications Generic Name Dose Route Start Last Admin Trade Name Freq PRN Reason Stop Dose Admin Acetaminophen 650 mg 07/01/25 09:55 07/02/25 09:09 Acetaminophen 325 Mg Tablet PO 650 mg Q4H PRN Administration Mild Pain (1-3) or Fever Apixaban 5 mg 07/01/25 21:00 07/02/25 09:10 Apixaban 5 Mg Tablet PO 5 mg Q12HR ERICK Administration Aspirin 81 mg 07/01/25 12:30 07/02/25 09:10 Aspirin 81 Mg Chewable Tablet PO 81 mg DAILY@0800 ERICK Administration Atorvastatin Calcium 20 mg 07/01/25 12:30 07/02/25 09:10 Atorvastatin 20 Mg Tablet PO 20 mg DAILY ERICK Administration Carvedilol 25 mg 07/01/25 21:00 07/01/25 20:24 Carvedilol 12.5 Mg Tablet PO 25 mg Q12HR ERICK Administration Dextrose 12.5 gm 07/01/25 13:21 Dextrose 50% 25 Gm/50 Ml Syringe IV PUSH PRN PRN Hypoglycemia Protocol Diphenhydramine HCl 25 mg 07/02/25 02:12 07/02/25 09:31 Diphenhydramine Hcl Inj 50 Mg/Ml Vial IV PUSH 25 mg Q6H PRN Administration Itching Epoetin Ori-epbx 4,000 units 07/02/25 17:14 Epoetin Ori-Epbx 4,000 Units/Ml Vial IV PUSH 07/02/25 17:15 ONCE ONE Furosemide 40 mg 07/02/25 09:00 Furosemide 40 Mg Tablet PO DAILY ERICK Glucagon 1 mg 07/01/25 13:21 Glucagon For Inj 1 Mg Vial IM PRN PRN Hypoglycemia Protocol Glucose 15 gm 07/01/25 13:21 Glucose Oral Gel 15 Gm Of Glucse In 37.5 Gm Tube PO PRN PRN Hypoglycemia Protocol Heparin Sodium (Porcine) 1,000 units 07/02/25 09:05 Heparin Sodium 1,000 Units/Ml Vial IV PUSH 07/02/25 12:06 Q1H ERICK Piperacillin Sod/Tazobactam 50 mls @ 100 mls/hr 07/01/25 14:00 07/02/25 06:25 Sod 2.25 gm/ Sodium Chloride IVPB 100 mls/hr Q8HR ERICK Administration Dextrose 1,000 mls @ 100 mls/hr 07/01/25 13:21 Dextrose 5% 1,000 Ml IVPB PRN PRN Hypoglycemia Protocol Albumin Human 50 mls @ 999 mls/hr 07/02/25 05:14 Albutein IVPB 08/01/25 05:13 Q10M PRN HYPOTENSION Insulin Aspart 2 - 4 units 07/01/25 21:00 07/01/25 20:25 Insulin Aspart (*Bkc) 100 Units/Ml SUB-Q 3 units HS ERICK Administration Protocol Insulin Aspart 4 - 8 units 07/01/25 17:00 07/02/25 09:11 Insulin Aspart (*Bkc) 100 Units/Ml SUB-Q 6 units TIDWM ERICK Administration Protocol Insulin Glargine 40 units 07/02/25 09:00 07/02/25 09:12 Insulin Glargine (*Bkc) 100 Units/Ml SUB-Q 40 units DAILY ERICK Administration Lidocaine 1 patch 07/01/25 21:05 07/02/25 09:09 Lidocaine 5% Patch TRANSDERM 1 patch DAILY ERICK Administration Ondansetron HCl 4 mg 07/02/25 09:22 07/02/25 09:31 Ondansetron Inj 4 Mg/2 Ml Vial IV PUSH 4 mg Q6H PRN Administration Nausea And Vomiting Vancomycin HCl 1 each 07/01/25 07:19 Vancomycin For Hemodialysis IVPB PRN PRN Vancomycin Protocol Radiology Results: ITS Impressions Chest CT 07/01/25 05:13 IMPRESSION: 1. Improved coarse interstitial densities of the upper and left lower lobes, likely chronic interstitial lung disease or scarring. Interval resolution of groundglass opacities bilaterally. 2: Abnormal number of borderline size lymph nodes mediastinum, likely reactive. Chest X-Ray 07/01/25 05:21 Impression: 1: No acute cardiopulmonary disease. Foot X-Ray 07/01/25 06:10 Impression: 1: No acute bone or joint abnormality. Labs Labs: Laboratory Results - last 24 hr 07/01/25 07/01/25 07/01/25 12:26 12:29 12:48 WBC RBC Hgb Hct MCV MCH MCHC RDW Plt Count MPV Immature Gran % (Auto) Neut % (Auto) Lymph % (Auto) Stanley % (Auto) Eos % (Auto) Baso % (Auto) Lymph # (Auto) Stanley # (Auto) Eos # (Auto) Baso # (Auto) Abs Immat Gran (auto) Absolute Neuts (auto) Absolute Nucleated RBC Nucleated RBC % Sodium 134 L Potassium 4.1 Chloride 110 H Carbon Dioxide 17 L Anion Gap 7 BUN 29 H Creatinine 5.00 H Estim Creat Clear Calc 20 Estimated GFR 10 L Glucose 106 POC Capillary Glucose 96 Calcium 7.9 L Phosphorus Magnesium Total Bilirubin AST ALT Alkaline Phosphatase Total Protein Albumin Triglycerides 108 Cholesterol 131 LDL Cholesterol Direct 72 HDL Direct 26 Serum HCG, Qual Negative Urine Color Yellow Urine Appearance Cloudy H Urine pH 5.5 Ur Specific [place] 1.019 Urine Protein 3+ H Urine Glucose (UA) 3+ H Urine Ketones Negative Ur Blood (Man) 2+ H Urine Nitrate Negative Urine Bilirubin Negative Urine Urobilinogen 0.2 Add Ur Microanalysis Reviewed Leukocyte Esterase Rfl 1+ H Urine RBC 11-20 H Urine WBC 21-50 H Ur Squamous Epith Cells Occasional Urine Bacteria Rare Urine Casts 3-5 Random Vancomycin Urine Opiates Screen Negative Urine Methadone Screen Negative Ur Barbiturates Screen Negative Ur Phencyclidine Scrn Negative Ur Amphetamine Screen Negative U Benzodiazepines Scrn Negative Urine Cocaine Screen Negative U Cannabinoids Screen Negative Hep Bs Antigen Hep Bs Antibody 07/01/25 07/01/25 07/01/25 13:26 16:11 16:14 WBC RBC Hgb Hct MCV MCH MCHC RDW Plt Count MPV Immature Gran % (Auto) Neut % (Auto) Lymph % (Auto) [place] % (Auto) Eos % (Auto) Baso % (Auto) Lymph # (Auto) Stanley # (Auto) Eos # (Auto) Baso # (Auto) Abs Immat Gran (auto) Absolute Neuts (auto) Absolute Nucleated RBC Nucleated RBC % Sodium 133 L Potassium 4.2 Chloride 110 H Carbon Dioxide 15 L Anion Gap 8 BUN 30 H Creatinine 5.13 H Estim Creat Clear Calc 20 Estimated GFR 10 L Glucose 234 H POC Capillary Glucose 121 H 245 H Calcium 7.7 L Phosphorus Magnesium Total Bilirubin AST ALT Alkaline Phosphatase Total Protein Albumin Triglycerides Cholesterol LDL Cholesterol Direct HDL Direct Serum HCG, Qual Urine Color Urine Appearance Urine pH Ur Specific [place] Urine Protein Urine Glucose (UA) Urine Ketones Ur Blood (Man) Urine Nitrate Urine Bilirubin Urine Urobilinogen Add Ur Microanalysis Leukocyte Esterase Rfl Urine RBC Urine WBC Ur Squamous Epith Cells Urine Bacteria Urine Casts Random Vancomycin Urine Opiates Screen Urine Methadone Screen Ur Barbiturates Screen Ur Phencyclidine Scrn Ur Amphetamine Screen U Benzodiazepines Scrn Urine Cocaine Screen U Cannabinoids Screen Hep Bs Antigen Hep Bs Antibody 07/01/25 07/01/25 07/01/25 20:18 20:48 23:54 WBC RBC Hgb Hct MCV MCH MCHC RDW Plt Count MPV Immature Gran % (Auto) Neut % (Auto) Lymph % (Auto) Stanley % (Auto) Eos % (Auto) Baso % (Auto) Lymph # (Auto) Stanley # (Auto) Eos # (Auto) Baso # (Auto) Abs Immat Gran (auto) Absolute Neuts (auto) Absolute Nucleated RBC Nucleated RBC % Sodium 132 L Potassium 4.9 Chloride 108 H Carbon Dioxide 13 L Anion Gap 11 BUN 32 H Creatinine 5.17 H Estim Creat Clear Calc 20 Estimated GFR 10 L Glucose 345 H POC Capillary Glucose 321 H 327 H Calcium 7.8 L Phosphorus Magnesium Total Bilirubin AST ALT Alkaline Phosphatase Total Protein Albumin Triglycerides Cholesterol LDL Cholesterol Direct HDL Direct Serum HCG, Qual Urine Color Urine Appearance Urine pH Ur Specific [place] Urine Protein Urine Glucose (UA) Urine Ketones Ur Blood (Man) Urine Nitrate Urine Bilirubin Urine Urobilinogen Add Ur Microanalysis Leukocyte Esterase Rfl Urine RBC Urine WBC Ur Squamous Epith Cells Urine Bacteria Urine Casts Random Vancomycin Urine Opiates Screen Urine Methadone Screen Ur Barbiturates Screen Ur Phencyclidine Scrn Ur Amphetamine Screen U Benzodiazepines Scrn Urine Cocaine Screen U Cannabinoids Screen Hep Bs Antigen Hep Bs Antibody 07/01/25 07/02/25 07/02/25 23:56 05:28 06:47 WBC 13.3 H RBC 3.92 L Hgb 11.2 L Hct 37.2 MCV 94.9 MCH 28.6 MCHC 30.1 L RDW 15.4 H Plt Count 358 MPV 9.7 Immature Gran % (Auto) 0.6 H Neut % (Auto) 68.1 Lymph % (Auto) 20.0 Stanley % (Auto) 6.5 Eos % (Auto) 4.3 Baso % (Auto) 0.5 Lymph # (Auto) 2.66 Stanley # (Auto) 0.9 H Eos # (Auto) 0.6 H Baso # (Auto) 0.1 Abs Immat Gran (auto) 0.08 H Absolute Neuts (auto) 9.1 H Absolute Nucleated RBC 0.000 Nucleated RBC % 0.0 Sodium 131 L 132 L Potassium 4.6 4.6 Chloride 108 H 108 H Carbon Dioxide 14 L 14 L Anion Gap 9 10 BUN 33 H 35 H Creatinine 5.30 H 5.54 H Estim Creat Clear Calc 19 19 Estimated GFR 9 L 9 L Glucose 345 H 374 H POC Capillary Glucose 325 H Calcium 7.7 L 8.0 L Phosphorus 6.6 H Magnesium 2.0 Total Bilirubin 0.3 AST 18 ALT 13 Alkaline Phosphatase 160 H Total Protein 6.8 Albumin 3.0 L Triglycerides Cholesterol LDL Cholesterol Direct HDL Direct Serum HCG, Qual Urine Color Urine Appearance Urine pH Ur Specific [place] Urine Protein Urine Glucose (UA) Urine Ketones Ur Blood (Man) Urine Nitrate Urine Bilirubin Urine Urobilinogen Add Ur Microanalysis Leukocyte Esterase Rfl Urine RBC Urine WBC Ur Squamous Epith Cells Urine Bacteria Urine Casts Random Vancomycin 20.8 H Urine Opiates Screen Urine Methadone Screen Ur Barbiturates Screen Ur Phencyclidine Scrn Ur Amphetamine Screen U Benzodiazepines Scrn Urine Cocaine Screen U Cannabinoids Screen Hep Bs Antigen Negative Hep Bs Antibody Indeterminate
[2025-07-02] MEDS: EPOETIN ALFA-EPBX 4,000 UNITS/ML VIAL 4000 UNITS IV PUSH (13:14)
--- NOTE | 2025-07-02 16:05 | PM.IMPN ---
Progress Note: A&P Assessment and Plan (1) Chest pain: Code(s): R07.9 - Chest pain, unspecified Status: Acute Assessment and Plan: Patient presents with chest pain occurring at rest lasting about 30 seconds. Troponin negative x2 (5hrs apart). EKG showing NSR, LAE, poor R wave progression and inferior ST-T changes. Repeat EKG showing no change. Atypical chest pain. Negative workup but still at high risk for coronary disease. Consider musculoskeletal or GB pain. CT chest did not show any obvious fracture to right humerus, clavicle. Resumed Coreg. ASA and Lipitor added. Echo from March reviewed. Lipid panel noted. Plan for outpatient ischemic evaluation (2) Diabetic ketoacidosis: Code(s): E11.10 - Type 2 diabetes mellitus with ketoacidosis without coma Status: Acute Assessment and Plan: Patient presents with chest pain but no n/v and found to have glucose of 757. Bicarb low at 15 with normal AG. VBG 7.23/40/42 on RA. [place] she has early DKA related to poor compliance Insulin gtt and IV fluids started per DKA protocol. Director Biomedical Engineering consulted and appreciate their input. AG remained closed. Still wiht metabolic acidosis but felt related to ESRD. Insulin regiment stopped. DKA resolved. (3) Diabetes mellitus: Code(s): E11.9 - Type 2 diabetes mellitus without complications Status: Chronic Assessment and Plan: Patient with longstanding, uncontrolled DM as seen with end stage organ disease. A1c >14 multiple times this year. Last 2 years, A1c was 5.9-7.0 related to tighter control at the facility. Her A1c>14 since being at home and no longer is tightly controlled. Continue AccuCheks covering with sliding scale. Hypoglycemia protocol available as needed. Continue Lantus. Add meal time insulin clinical unit educator. Dietitian consult. (4) End-stage renal disease (ESRD): Code(s): N18.6 - End stage renal disease Status: Acute Assessment and Plan: Patient with ESRD x 2 years. -- schedule. Due for dialysis today Nephrology consult. (5) Chronic heel ulcer: Qualifiers: Laterality: right Non-pressure ulcer stage: unspecified non-pressure ulcer stage Qualified Code(s): L97.419 - Non-pressure chronic ulcer of right heel and midfoot with unspecified severity Code(s): L97.409 - Non-pressure chronic ulcer of unspecified heel and midfoot with unspecified severity Status: Chronic Assessment and Plan: Patient with chronic right heel ulcer that clinically does not appear infected. Rt Foot xray showing no acute bone or joint abnormalities. BCx pending WCx pending Started on Zosyn and Vancomycin Follow up on cultures. Wound care consult. Continue abx. Continue daily dressing changes. Consider stopping abx if cx remain negative. (6) Anemia: Code(s): D64.9 - Anemia, unspecified Status: Chronic Assessment and Plan: Chart review showing workup in the past consistent with anemia of chronic disease felt related to her ESRD. Hgb 11.5 but normally runs 9-10 earlier this year. Hgb stable. Follow intermittently (7) Obstructive sleep apnea: Code(s): G47.33 - Obstructive sleep apnea (adult) (pediatric) Status: Acute Assessment and Plan: Patient has not had a formal polysomnogram but had positive ApneaLink August 2023. Will need to arrange as outpatient (8) Hypertension: Code(s): I10 - Essential (primary) hypertension Status: Chronic Assessment and Plan: Patient's blood pressure was reviewed on 07/02 Blood pressure remains reasonably well controlled. Coreg resumed. Add back Lisinopril. Will continue to follow (9) CHF (congestive heart failure): Qualifiers: Heart failure chronicity: acute on chronic Heart failure type: unspecified Qualified Code(s): I50.9 - Heart failure, unspecified Code(s): I50.9 - Heart failure, unspecified Status: Chronic Assessment and Plan: Patient with hx of chronic diastolic CHF. 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 Continue Eliquis Plan DVT Prophylaxis - Eliquis Code status - Full Subjective Date/time seen: 07/02/25 16:05 Interval history: 34yo female with EDD, insulin dependent DM, dCHF, HTN and ESRD who presents with complaints of chest pain. Still with right shoulder pain. Did have chest pain earlier this morning but resolved now. Plan for HD today. She was in a facility up until 1 year ago. She was on meal time insulin at the facility but not at home. Exam Narrative: AF 98.2 155/93 88 16 100% ra Gen - NARD Chest - CTA bilaterally. Left upper chest tunneled dialysis catheter to left IJ CV - RRR. S1-S2. Tele showing no acute dysrhythmias Abd - abdomen was soft. Nontender. Obese. Positive bowel sounds. Ext - left AKA. Right LE with two dry ulcers to the sher. Right heel ulcer with large callus and smaller central ulcer with serosang fluid. Dried scaly RLE skin diffusely Psych - normal mood and affect. Patient is pleasant and cooperative. Skin - warm and dry. Objective Data Vital Signs Vital Signs: Vital Signs - 24 hr 07/01/25 18:00 07/01/25 19:55 07/01/25 20:00 Temperature 98.2 F Pulse Rate 94 91 Respiratory Rate 16 Blood Pressure 126/71 Pulse Oximetry 99 Oxygen Delivery Room Air 07/01/25 20:00 07/01/25 20:24 07/01/25 21:54 Temperature Pulse Rate 92 95 88 Respiratory Rate Blood Pressure Pulse Oximetry Oxygen Delivery 07/01/25 23:00 07/01/25 23:58 07/02/25 00:00 Temperature 98.5 F Pulse Rate 83 83 Respiratory Rate 17 Blood Pressure 114/67 Pulse Oximetry 97 Oxygen Delivery Room Air 07/02/25 02:00 07/02/25 03:57 07/02/25 04:00 Temperature 98.3 F Pulse Rate 84 86 Respiratory Rate 20 Blood Pressure 127/76 Pulse Oximetry 99 Oxygen Delivery Room Air 07/02/25 04:00 07/02/25 06:00 07/02/25 08:00 Temperature 98.5 F Pulse Rate 84 85 85 Respiratory Rate 18 Blood Pressure 139/81 Pulse Oximetry 100 Oxygen Delivery 07/02/25 08:00 07/02/25 08:00 07/02/25 10:00 Temperature Pulse Rate 84 87 Respiratory Rate Blood Pressure Pulse Oximetry Oxygen Delivery Room Air 07/02/25 10:12 07/02/25 10:27 07/02/25 10:30 Temperature 98.6 F Pulse Rate 85 86 84 Respiratory Rate 18 Blood Pressure 132/84 135/83 147/87 H Pulse Oximetry 97 Oxygen Delivery 07/02/25 10:45 07/02/25 11:00 07/02/25 11:15 Temperature Pulse Rate 84 85 96 Respiratory Rate Blood Pressure 134/85 124/81 108/78 Pulse Oximetry Oxygen Delivery 07/02/25 11:30 07/02/25 11:45 07/02/25 12:00 Temperature Pulse Rate 90 91 88 Respiratory Rate Blood Pressure 147/89 H 149/92 H 135/88 Pulse Oximetry Oxygen Delivery 07/02/25 12:00 07/02/25 12:15 07/02/25 12:30 Temperature Pulse Rate 87 93 88 Respiratory Rate Blood Pressure 121/85 119/87 Pulse Oximetry Oxygen Delivery 07/02/25 12:45 07/02/25 13:00 07/02/25 13:15 Temperature Pulse Rate 88 89 90 Respiratory Rate Blood Pressure 144/85 H 133/90 143/96 H Pulse Oximetry Oxygen Delivery 07/02/25 13:30 07/02/25 13:45 07/02/25 14:04 Temperature Pulse Rate 93 93 93 Respiratory Rate Blood Pressure 143/95 H 142/91 H 132/90 Pulse Oximetry Oxygen Delivery 07/02/25 14:08 Temperature 98.2 F Pulse Rate 88 Respiratory Rate 16 Blood Pressure 155/93 H Pulse Oximetry 100 Oxygen Delivery Intake/Output Intake/Output: Intake & Output 06/29/25 06/30/25 07/01/25 07/02/25 23:59 23:59 23:59 23:59 Intake Total 2093.8 1320 Output Total 1060 3750 Balance 1033.8 -2430 Meds/Results Medications: Active Medications Generic Name Dose Route Start Last Admin Trade Name Freq PRN Reason Stop Dose Admin Acetaminophen 650 mg 07/01/25 09:55 07/02/25 09:09 Acetaminophen 325 Mg Tablet PO 650 mg Q4H PRN Administration Mild Pain (1-3) or Fever Apixaban 5 mg 07/01/25 21:00 07/02/25 09:10 Apixaban 5 Mg Tablet PO 5 mg Q12HR ERICK Administration Aspirin 81 mg 07/01/25 12:30 07/02/25 09:10 Aspirin 81 Mg Chewable Tablet PO 81 mg DAILY@0800 ERICK Administration Atorvastatin Calcium 20 mg 07/01/25 12:30 07/02/25 09:10 Atorvastatin 20 Mg Tablet PO 20 mg DAILY ERICK Administration Carvedilol 25 mg 07/01/25 21:00 07/02/25 09:00 Carvedilol 12.5 Mg Tablet PO Not Given Q12HR ERICK Dextrose 12.5 gm 07/01/25 13:21 Dextrose 50% 25 Gm/50 Ml Syringe IV PUSH PRN PRN Hypoglycemia Protocol Diphenhydramine HCl 25 mg 07/02/25 02:12 07/02/25 09:31 Diphenhydramine Hcl Inj 50 Mg/Ml Vial IV PUSH 25 mg Q6H PRN Administration Itching Epoetin Ori-epbx 4,000 units 07/02/25 17:14 07/02/25 13:14 Epoetin Ori-Epbx 4,000 Units/Ml Vial IV PUSH 07/02/25 17:15 4,000 units ONCE ONE Administration Furosemide 40 mg 07/02/25 09:00 07/02/25 09:00 Furosemide 40 Mg Tablet PO Not Given DAILY ERICK Glucagon 1 mg 07/01/25 13:21 Glucagon For Inj 1 Mg Vial IM PRN PRN Hypoglycemia Protocol Glucose 15 gm 07/01/25 13:21 Glucose Oral Gel 15 Gm Of Glucse In 37.5 Gm Tube PO PRN PRN Hypoglycemia Protocol Piperacillin Sod/Tazobactam 50 mls @ 100 mls/hr 07/01/25 14:00 07/02/25 06:25 Sod 2.25 gm/ Sodium Chloride IVPB 100 mls/hr Q8HR ERICK Administration Dextrose 1,000 mls @ 100 mls/hr 07/01/25 13:21 Dextrose 5% 1,000 Ml IVPB PRN PRN Hypoglycemia Protocol Albumin Human 50 mls @ 999 mls/hr 07/02/25 05:14 Albutein IVPB 08/01/25 05:13 Q10M PRN HYPOTENSION Insulin Aspart 2 - 4 units 07/01/25 21:00 07/01/25 20:25 Insulin Aspart (*Bkc) 100 Units/Ml SUB-Q 3 units HS ERICK Administration Protocol Insulin Aspart 4 - 8 units 07/01/25 17:00 07/02/25 16:02 Insulin Aspart (*Bkc) 100 Units/Ml SUB-Q Not Given TIDWM ERICK Protocol Insulin Glargine 40 units 07/02/25 09:00 07/02/25 09:12 Insulin Glargine (*Bkc) 100 Units/Ml SUB-Q 40 units DAILY ERICK Administration Lidocaine 1 patch 07/01/25 21:05 07/02/25 09:09 Lidocaine 5% Patch TRANSDERM 1 patch DAILY ERICK Administration Ondansetron HCl 4 mg 07/02/25 09:22 07/02/25 09:31 Ondansetron Inj 4 Mg/2 Ml Vial IV PUSH 4 mg Q6H PRN Administration Nausea And Vomiting Vancomycin HCl 1 each 07/01/25 07:19 Vancomycin For Hemodialysis IVPB PRN PRN Vancomycin Protocol Radiology Results: ITS Impressions Chest CT 07/01/25 05:13 IMPRESSION: 1. Improved coarse interstitial densities of the upper and left lower lobes, likely chronic interstitial lung disease or scarring. Interval resolution of groundglass opacities bilaterally. 2: Abnormal number of borderline size lymph nodes mediastinum, likely reactive. Chest X-Ray 07/01/25 05:21 Impression: 1: No acute cardiopulmonary disease. Foot X-Ray 07/01/25 06:10 Impression: 1: No acute bone or joint abnormality. Labs Labs: Laboratory Results - last 24 hr 07/01/25 07/01/25 07/01/25 16:11 16:14 20:18 WBC RBC Hgb Hct MCV MCH MCHC RDW Plt Count MPV Immature Gran % (Auto) Neut % (Auto) Lymph % (Auto) Piatt % (Auto) Eos % (Auto) Baso % (Auto) Lymph # (Auto) Piatt # (Auto) Eos # (Auto) Baso # (Auto) Abs Immat Gran (auto) Absolute Neuts (auto) Absolute Nucleated RBC Nucleated RBC % Sodium 133 L Potassium 4.2 Chloride 110 H Carbon Dioxide 15 L Anion Gap 8 BUN 30 H Creatinine 5.13 H Estim Creat Clear Calc 20 Estimated GFR 10 L Glucose 234 H POC Capillary Glucose 245 H 321 H Calcium 7.7 L Phosphorus Magnesium Total Bilirubin AST ALT Alkaline Phosphatase Total Protein Albumin Random Vancomycin Hep Bs Antigen Hep Bs Antibody 07/01/25 07/01/25 07/01/25 20:48 23:54 23:56 WBC RBC Hgb Hct MCV MCH MCHC RDW Plt Count MPV Immature Gran % (Auto) Neut % (Auto) Lymph % (Auto) Piatt % (Auto) Eos % (Auto) Baso % (Auto) Lymph # (Auto) Piatt # (Auto) Eos # (Auto) Baso # (Auto) Abs Immat Gran (auto) Absolute Neuts (auto) Absolute Nucleated RBC Nucleated RBC % Sodium 132 L 131 L Potassium 4.9 4.6 Chloride 108 H 108 H Carbon Dioxide 13 L 14 L Anion Gap 11 9 BUN 32 H 33 H Creatinine 5.17 H 5.30 H Estim Creat Clear Calc 20 19 Estimated GFR 10 L 9 L Glucose 345 H 345 H POC Capillary Glucose 327 H Calcium 7.8 L 7.7 L Phosphorus Magnesium Total Bilirubin AST ALT Alkaline Phosphatase Total Protein Albumin Random Vancomycin Hep Bs Antigen Hep Bs Antibody 07/02/25 07/02/25 07/02/25 05:28 06:47 15:21 WBC 13.3 H RBC 3.92 L Hgb 11.2 L Hct 37.2 MCV 94.9 MCH 28.6 MCHC 30.1 L RDW 15.4 H Plt Count 358 MPV 9.7 Immature Gran % (Auto) 0.6 H Neut % (Auto) 68.1 Lymph % (Auto) 20.0 Piatt % (Auto) 6.5 Eos % (Auto) 4.3 Baso % (Auto) 0.5 Lymph # (Auto) 2.66 Piatt # (Auto) 0.9 H Eos # (Auto) 0.6 H Baso # (Auto) 0.1 Abs Immat Gran (auto) 0.08 H Absolute Neuts (auto) 9.1 H Absolute Nucleated RBC 0.000 Nucleated RBC % 0.0 Sodium 132 L Potassium 4.6 Chloride 108 H Carbon Dioxide 14 L Anion Gap 10 BUN 35 H Creatinine 5.54 H Estim Creat Clear Calc 19 Estimated GFR 9 L Glucose 374 H POC Capillary Glucose 325 H 119 H Calcium 8.0 L Phosphorus 6.6 H Magnesium 2.0 Total Bilirubin 0.3 AST 18 ALT 13 Alkaline Phosphatase 160 H Total Protein 6.8 Albumin 3.0 L Random Vancomycin 20.8 H Hep Bs Antigen Negative Hep Bs Antibody Indeterminate
[2025-07-02] MEDS: VANCOMYCIN 750 MG/NS 250 ML 750 MG/250 ML BAG 250 MG IVPB (16:57)
[2025-07-02] MEDS: EUCERIN CREAM 120 GM JAR 1 APPLIC TOPICAL (18:29)
[2025-07-03] VITALS (15 sets, daily range): BP systolic 136–163; BP diastolic 78–84; PULSE 82–93; RESP 16–20; TEMP 36.4–36.9; O2SAT 95–99
[2025-07-03 04:12] LABS: Hematocrit 36.5 % (37.0-47.0); Hemoglobin 11.2 g/dL (12.0-15.0); Immature Granulocyte Percent A 0.6 % (0-0.5); Lymphocytes Absolute Auto 2.55 K/mm3 (0.9-3.2); Mean Corpuscular HGB Conc 30.7 g/dl (32-36); Mean Corpuscular Hemoglobin 29.1 pg (26-34); Mean Corpuscular Volume 94.8 fl (80-100); Nucleated Red Blood Cells Absolute Auto 0.020 K/mm3 (0.0-0.012); Nucleated Red Blood Cells Perc 0.2 % (0.0-0.2); Platelet Count Result 348 k/mm3 (150-375); Red Blood Count 3.85 M/mm3 (4.2-5.4); White Blood Count 12.4 K/mm3 (4.5-10.0)
[2025-07-03 04:35] LABS: Albumin Level 2.9 g/dL (3.5-5.1); Anion Gap 7 mmol/L (4-12); Blood Urea Nitrogen 22 mg/dL (7-17); Calcium 7.7 mg/dL (8.4-10.2); Carbon Dioxide 22 mmol/L (22-30); Chloride 105 mmol/L (98-107); Estimated CRCL calculation 26 ml/min; Estimated Glomerular Filt Rate 13; Glucose 386 mg/dL (65-110); Potassium 4.2 mmol/L (3.4-5.0); Sodium 134 mmol/L (137-145)
[2025-07-03] MEDS: PIPERACILLIN/TAZOBACTAM SOD 2.25 GM in SODIUM CHLORIDE 0.9% IV 50 ML 100 ML IVPB ×3 (06:10→21:04)
[2025-07-03] MEDS: INSULIN GLARGINE (*BKC) 100 UNITS/ML 40 UNITS SUB-Q (08:49)
[2025-07-03] MEDS: FUROSEMIDE 40 MG TABLET PO (08:49)
[2025-07-03] MEDS: ASPIRIN 81 MG CHEWABLE TABLET PO (08:50)
[2025-07-03] MEDS: ATORVASTATIN 20 MG TABLET PO (08:50)
[2025-07-03] MEDS: APIXABAN 5 MG TABLET PO ×2 (08:50→20:18)
[2025-07-03] MEDS: INSULIN ASPART (*BKC) 100 UNITS/ML SUB-Q ×3 (08:50→20:18)
[2025-07-03] MEDS: INSULIN ASPART (*BKC) 100 UNITS/ML 7 UNITS SUB-Q ×2 (08:50→12:08)
[2025-07-03] MEDS: EUCERIN CREAM 120 GM JAR 1 APPLIC TOPICAL (11:03)
--- NOTE | 2025-07-03 11:26 | P.PNNP_ITS ---
Progress Note: A&P Assessment and Plan (1) End stage renal disease: Code(s): N18.6 - End stage renal disease Status: Chronic Assessment and Plan: * hemodialysis went well yesterday. * next treatment on Friday * Volume status looks okay * electrolytes are okay (2) Hyperosmolar hyperglycemic state (HHS): Code(s): E11.00 - Type 2 diabetes mellitus with hyperosmolarity without nonketotic hyperglycemic-hyperosmolar coma (NKHHC) Status: Acute Assessment and Plan: * noted to have blood sugars > 700 with normal anion gap * now sugars still running between 70 and 327. * see #8 (3) Chest pain: Code(s): R07.9 - Chest pain, unspecified Status: Acute Assessment and Plan: * noted on presentation * EKG with no ST elevations or ischemic changes * however, inferior leads at some ST-T changes * troponin negative x 2 * repeat Echo ordered and pending. Last one done in March. * continues carvedilol + ASA + statin (4) Chronic heel ulcer: Qualifiers: Laterality: right Non-pressure ulcer stage: unspecified non-pressure ulcer stage Qualified Code(s): L97.419 - Non-pressure chronic ulcer of right heel and midfoot with unspecified severity Code(s): L97.409 - Non-pressure chronic ulcer of unspecified heel and midfoot with unspecified severity Status: Chronic Assessment and Plan: * rule out infection * follow-up on gram statin and culture * follow blood cultures * would care consulted * on vanc and Zosyn (5) CHF (congestive heart failure): Qualifiers: Heart failure chronicity: acute on chronic Heart failure type: unspecified Qualified Code(s): I50.9 - Heart failure, unspecified Code(s): I50.9 - Heart failure, unspecified Status: Chronic Assessment and Plan: * appears compensated at this timed chest x-ray is clear. * No edema an * fluid removal with HD to maintain euvolemia * repeat Echo ordered and pending (6) Anemia: Code(s): D64.9 - Anemia, unspecified Status: Chronic Assessment and Plan: * due to ESRD and acute illness * hemoglobin high today. Hold the EPO * follow H/H (7) Hypertension: Code(s): I10 - Essential (primary) hypertension Status: Chronic Assessment and Plan: * Systolic 120 to 160s. * soft BP on admission * BP medications with parameters * on carvedilol and lisinopril * See how things trend out and adjust meds accordingly. * Improved sugars may help decrease the blood pressure swings (8) Diabetes mellitus: Code(s): E11.9 - Type 2 diabetes mellitus without complications Status: Chronic Assessment and Plan: * poor control at baseline (A1c > 14) * follow accu-cheks * glycemic control per hospitalist Subjective Date/time seen: 07/03/25 11:26 Interval history: patient feels okay. Did okay in dialysis yesterday Exam Narrative: WDWN in NAD skin no rash head ncat lungs clear bilaterally cor reg no rub abd BS+ nontender and soft ext no edema. Objective Data Vital Signs Vital Signs: Vital Signs - 24 hr 07/02/25 11:30 07/02/25 11:45 07/02/25 12:00 Temperature Pulse Rate 90 91 88 Respiratory Rate Blood Pressure 147/89 H 149/92 H 135/88 Pulse Oximetry Oxygen Delivery 07/02/25 12:00 07/02/25 12:15 07/02/25 12:30 Temperature Pulse Rate 87 93 88 Respiratory Rate Blood Pressure 121/85 119/87 Pulse Oximetry Oxygen Delivery 07/02/25 12:45 07/02/25 13:00 07/02/25 13:15 Temperature Pulse Rate 88 89 90 Respiratory Rate Blood Pressure 144/85 H 133/90 143/96 H Pulse Oximetry Oxygen Delivery 07/02/25 13:30 07/02/25 13:45 07/02/25 14:00 Temperature Pulse Rate 93 93 87 Respiratory Rate Blood Pressure 143/95 H 142/91 H Pulse Oximetry Oxygen Delivery 07/02/25 14:04 07/02/25 14:08 07/02/25 16:00 Temperature 98.2 F 99.1 F Pulse Rate 93 88 91 Respiratory Rate 16 16 Blood Pressure 132/90 155/93 H 135/79 Pulse Oximetry 100 99 Oxygen Delivery 07/02/25 16:00 07/02/25 16:00 07/02/25 18:00 Temperature Pulse Rate 93 89 Respiratory Rate Blood Pressure Pulse Oximetry Oxygen Delivery Room Air 07/02/25 19:47 07/02/25 20:00 07/02/25 20:00 Temperature 98.6 F Pulse Rate 91 88 Respiratory Rate 17 Blood Pressure 154/69 H Pulse Oximetry 99 Oxygen Delivery Room Air 07/02/25 21:29 07/02/25 22:00 07/02/25 23:46 Temperature 97.9 F Pulse Rate 92 89 84 Respiratory Rate 21 H Blood Pressure 127/79 Pulse Oximetry 100 Oxygen Delivery 07/03/25 00:00 07/03/25 00:00 07/03/25 01:52 Temperature Pulse Rate 84 83 Respiratory Rate Blood Pressure Pulse Oximetry Oxygen Delivery Room Air 07/03/25 04:00 07/03/25 04:00 07/03/25 04:44 Temperature 98.4 F Pulse Rate 93 85 Respiratory Rate 16 Blood Pressure 163/84 H Pulse Oximetry 98 Oxygen Delivery Room Air 07/03/25 06:00 07/03/25 08:00 07/03/25 08:00 Temperature 98.1 F Pulse Rate 84 86 Respiratory Rate 16 Blood Pressure 151/84 H Pulse Oximetry 98 Oxygen Delivery Room Air 07/03/25 08:00 07/03/25 08:05 07/03/25 08:50 Temperature Pulse Rate 92 91 93 Respiratory Rate 20 Blood Pressure Pulse Oximetry 99 Oxygen Delivery Room Air 07/03/25 10:00 Temperature Pulse Rate 84 Respiratory Rate Blood Pressure Pulse Oximetry Oxygen Delivery Intake/Output Intake/Output: Intake & Output 06/30/25 07/01/25 07/02/25 07/03/25 23:59 23:59 23:59 23:59 Intake Total 2093.8 1890 1000 Output Total 1060 1805 490 Balance 1033.8 -1935 510 Meds/Results Medications: Active Medications Generic Name Dose Route Start Last Admin Trade Name Freq PRN Reason Stop Dose Admin Acetaminophen 650 mg 07/01/25 09:55 07/02/25 16:55 Acetaminophen 325 Mg Tablet PO 650 mg Q4H PRN Administration Mild Pain (1-3) or Fever Apixaban 5 mg 07/01/25 21:00 07/03/25 08:50 Apixaban 5 Mg Tablet PO 5 mg Q12HR ERICK Administration Aspirin 81 mg 07/01/25 12:30 07/03/25 08:50 Aspirin 81 Mg Chewable Tablet PO 81 mg DAILY@0800 ERICK Administration Atorvastatin Calcium 20 mg 07/01/25 12:30 07/03/25 08:50 Atorvastatin 20 Mg Tablet PO 20 mg DAILY ERICK Administration Carvedilol 25 mg 07/02/25 21:00 07/03/25 08:50 Carvedilol 25 Mg Tablet PO 25 mg Q12HR ERICK Administration Dextrose 12.5 gm 07/01/25 13:21 Dextrose 50% 25 Gm/50 Ml Syringe IV PUSH PRN PRN Hypoglycemia Protocol Diphenhydramine HCl 25 mg 07/02/25 02:12 07/03/25 06:14 Diphenhydramine Hcl Inj 50 Mg/Ml Vial IV PUSH 25 mg Q6H PRN Administration Itching Furosemide 40 mg 07/02/25 09:00 07/03/25 08:49 Furosemide 40 Mg Tablet PO 40 mg DAILY ERICK Administration Glucagon 1 mg 07/01/25 13:21 Glucagon For Inj 1 Mg Vial IM PRN PRN Hypoglycemia Protocol Glucose 15 gm 07/01/25 13:21 Glucose Oral Gel 15 Gm Of Glucse In 37.5 Gm Tube PO PRN PRN Hypoglycemia Protocol Piperacillin Sod/Tazobactam 50 mls @ 100 mls/hr 07/01/25 14:00 07/03/25 06:10 Sod 2.25 gm/ Sodium Chloride IVPB 100 mls/hr Q8HR ERICK Administration Dextrose 1,000 mls @ 100 mls/hr 07/01/25 13:21 Dextrose 5% 1,000 Ml IVPB PRN PRN Hypoglycemia Protocol Albumin Human 50 mls @ 999 mls/hr 07/02/25 05:14 Albutein IVPB 08/01/25 05:13 Q10M PRN HYPOTENSION Insulin Aspart 2 - 4 units 07/01/25 21:00 07/02/25 21:29 Insulin Aspart (*Bkc) 100 Units/Ml SUB-Q 3 units HS ERICK Administration Protocol Insulin Aspart 4 - 8 units 07/01/25 17:00 07/03/25 08:50 Insulin Aspart (*Bkc) 100 Units/Ml SUB-Q 6 units TIDWM ERICK Administration Protocol Insulin Aspart 7 units 07/02/25 17:00 07/03/25 08:50 Insulin Aspart (*Bkc) 100 Units/Ml 0.05 units/kg (7 units) 7 units SUB-Q Administration TIDWM ERICK Insulin Glargine 40 units 07/02/25 09:00 07/03/25 08:49 Insulin Glargine (*Bkc) 100 Units/Ml SUB-Q 40 units DAILY ERICK Administration Lidocaine 1 patch 07/01/25 21:05 07/03/25 08:58 Lidocaine 5% Patch TRANSDERM Not Given DAILY ERICK Lisinopril 20 mg 07/03/25 09:00 07/03/25 08:49 Lisinopril 20 Mg Tablet PO 20 mg QAM ERICK Administration Multi-Ingred Cream/Lotion/Oil/Oint 1 applic 07/02/25 16:30 07/03/25 11:03 Eucerin Cream 120 Gm Jar TOPICAL 1 applic DAILY ERICK Administration Ondansetron HCl 4 mg 07/02/25 09:22 07/02/25 09:31 Ondansetron Inj 4 Mg/2 Ml Vial IV PUSH 4 mg Q6H PRN Administration Nausea And Vomiting Vancomycin HCl 1 each 07/01/25 07:19 Vancomycin For Hemodialysis IVPB PRN PRN Vancomycin Protocol Radiology Results: ITS Impressions Chest CT 07/01/25 05:13 IMPRESSION: 1. Improved coarse interstitial densities of the upper and left lower lobes, likely chronic interstitial lung disease or scarring. Interval resolution of groundglass opacities bilaterally. 2: Abnormal number of borderline size lymph nodes mediastinum, likely reactive. Chest X-Ray 07/01/25 05:21 Impression: 1: No acute cardiopulmonary disease. Foot X-Ray 07/01/25 06:10 Impression: 1: No acute bone or joint abnormality. Labs Labs: Laboratory Results - last 24 hr 07/02/25 07/02/25 07/03/25 15:21 19:46 03:56 WBC 12.4 H RBC 3.85 L Hgb 11.2 L Hct 36.5 L MCV 94.8 MCH 29.1 MCHC 30.7 L RDW 15.7 H Plt Count 348 MPV 9.8 Immature Gran % (Auto) 0.6 H Neut % (Auto) 65.7 Lymph % (Auto) 20.5 Turner % (Auto) 8.8 H Eos % (Auto) 4.1 Baso % (Auto) 0.3 Lymph # (Auto) 2.55 Turner # (Auto) 1.1 H Eos # (Auto) 0.5 H Baso # (Auto) 0.0 Abs Immat Gran (auto) 0.08 H Absolute Neuts (auto) 8.2 H Absolute Nucleated RBC 0.020 H Nucleated RBC % 0.2 Sodium 134 L Potassium 4.2 Chloride 105 Carbon Dioxide 22 Anion Gap 7 BUN 22 H D Creatinine 3.94 H Estim Creat Clear Calc 26 Estimated GFR 13 L Glucose 386 H POC Capillary Glucose 119 H 330 H Calcium 7.7 L Phosphorus 4.9 H Albumin 2.9 L 07/03/25 07:28 WBC RBC Hgb Hct MCV MCH MCHC RDW Plt Count MPV Immature Gran % (Auto) Neut % (Auto) Lymph % (Auto) Turner % (Auto) Eos % (Auto) Baso % (Auto) Lymph # (Auto) Turner # (Auto) Eos # (Auto) Baso # (Auto) Abs Immat Gran (auto) Absolute Neuts (auto) Absolute Nucleated RBC Nucleated RBC % Sodium Potassium Chloride Carbon Dioxide Anion Gap BUN Creatinine Estim Creat Clear Calc Estimated GFR Glucose POC Capillary Glucose 309 H Calcium Phosphorus Albumin
--- NOTE | 2025-07-03 14:19 | P.PNIM_ITS ---
Progress Note: A&P Assessment and Plan (1) Abdominal pain: Code(s): R10.9 - Unspecified abdominal pain Status: Acute Assessment and Plan: Patient with complaints of abdominal pain. Unaffected by eating. Possibly constipation. Not a surgical abd Add Miralax. Check lipase and LFTs. (2) Chest pain: Code(s): R07.9 - Chest pain, unspecified Status: Acute Assessment and Plan: Patient presents with chest pain occurring at rest lasting about 30 seconds. Troponin negative x2 (5hrs apart). EKG showing NSR, LAE, poor R wave progression and inferior ST-T changes. Repeat EKG showing no change. Atypical chest pain. Negative workup but still at high risk for coronary disease. Consider musculoskeletal or GB pain. CT chest did not show any obvious fracture to right humerus, clavicle. Resumed Coreg. ASA and Lipitor added. Echo from March reviewed. Lipid panel noted. Plan for outpatient ischemic evaluation (3) Diabetic ketoacidosis: Code(s): E11.10 - Type 2 diabetes mellitus with ketoacidosis without coma Status: Acute Assessment and Plan: Patient presents with chest pain and found to have glucose of 757. Bicarb low at 15 with normal AG. No n/v. VBG 7.23/40/42 on RA. [place] she has early DKA related to poor compliance Insulin gtt and IV fluids started per DKA protocol. Academic Affairs Specialist consulted and appreciate their input. AG remained closed. Still with metabolic acidosis but felt related to ESRD. Insulin regiment stopped. DKA resolved. (4) Diabetes mellitus: Code(s): E11.9 - Type 2 diabetes mellitus without complications Status: Chronic Assessment and Plan: Patient with longstanding, uncontrolled DM as seen with end stage organ disease and vision loss. Last 2 years, A1c was 5.9-7.0 related to tighter control at the facility. A1c >14 multiple times this year since being at home and no longer is tightly controlled. Continue AccuCheks covering with sliding scale. Hypoglycemia protocol available as needed. Continue Lantus and meal time insulin development educator. Dietitian consult. (5) End-stage renal disease (ESRD): Code(s): N18.6 - End stage renal disease Status: Acute Assessment and Plan: Patient with ESRD x 2 years. -- schedule. Dialysis yesterday. Nephrology consulted and appreciate their input. Continue HD per Nephrology recommendation. (6) Chronic heel ulcer: Qualifiers: Laterality: right Non-pressure ulcer stage: unspecified non-pressure ulcer stage Qualified Code(s): L97.419 - Non-pressure chronic ulcer of right heel and midfoot with unspecified severity Code(s): L97.409 - Non-pressure chronic ulcer of unspecified heel and midfoot with unspecified severity Status: Chronic Assessment and Plan: Patient with chronic right heel ulcer that clinically does not appear infected. Rt Foot xray showing no acute bone or joint abnormalities. BCx pending Wound gram stain noted. WCx pending Started on Zosyn and Vancomycin WBC better at 12K Follow up on cultures. Wound care consult. Continue abx. Continue daily dressing changes. Consider stopping abx if cx remain negative. (7) Anemia: Code(s): D64.9 - Anemia, unspecified Status: Chronic Assessment and Plan: Chart review showing workup in the past consistent with anemia of chronic disease felt related to her ESRD. Hgb 11.5 but normally runs 9-10 earlier this year. Hgb stable. Follow intermittently (8) Obstructive sleep apnea: Code(s): G47.33 - Obstructive sleep apnea (adult) (pediatric) Status: Acute Assessment and Plan: Patient has not had a formal polysomnogram but had positive ApneaLink August 2023. Will need to arrange as outpatient (9) Hypertension: Code(s): I10 - Essential (primary) hypertension Status: Chronic Assessment and Plan: Patient's blood pressure was reviewed on 07/03 Blood pressure remains reasonably well controlled. Coreg, Lasix and Lisinopril resumed. Will continue to follow (10) CHF (congestive heart failure): Qualifiers: Heart failure chronicity: acute on chronic Heart failure type: unspecified Qualified Code(s): I50.9 - Heart failure, unspecified Code(s): I50.9 - Heart failure, unspecified Status: Chronic Assessment and Plan: Patient with hx of chronic diastolic CHF. 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 Continue Eliquis Plan DVT Prophylaxis - Eliquis Code status - Full Subjective Date/time seen: 07/03/25 14:19 Interval history: 34yo female with EDD, insulin dependent DM, dCHF, HTN and ESRD who presents with complaints of chest pain. Abd pain in the upper abdomen. Pain worse with coughing or pressing on abdomen. No n/v. No CP or SOB. No BM recently but passing flatus. Food does not make the abd pain worse Exam Narrative: AF 98.2 136/80 84 16 95% ra Gen - NARD Chest - CTA bilaterally. Left upper chest tunneled dialysis catheter to left IJ CV - RRR. S1-S2. Tele showing no acute dysrhythmias Abd - abdomen was soft. Obese. +BS. Mild upper abdominal tenderness Ext - left AKA. Right LE with two dry ulcers to the sher. Right heel ulcer with dark callus. Smaller central heel ulcer with some visualized granulation tissue. Dried scaly RLE skin but scant erythema. Psych - normal mood and affect. Skin - warm and dry. Objective Data Vital Signs Vital Signs: Vital Signs - 24 hr 07/02/25 16:00 07/02/25 16:00 07/02/25 16:00 Temperature 99.1 F Pulse Rate 91 93 Respiratory Rate 16 Blood Pressure 135/79 Pulse Oximetry 99 Oxygen Delivery Room Air 07/02/25 18:00 07/02/25 19:47 07/02/25 20:00 Temperature 98.6 F Pulse Rate 89 91 Respiratory Rate 17 Blood Pressure 154/69 H Pulse Oximetry 99 Oxygen Delivery Room Air 07/02/25 20:00 07/02/25 21:29 07/02/25 22:00 Temperature Pulse Rate 88 92 89 Respiratory Rate Blood Pressure Pulse Oximetry Oxygen Delivery 07/02/25 23:46 07/03/25 00:00 07/03/25 00:00 Temperature 97.9 F Pulse Rate 84 84 Respiratory Rate 21 H Blood Pressure 127/79 Pulse Oximetry 100 Oxygen Delivery Room Air 07/03/25 01:52 07/03/25 04:00 07/03/25 04:00 Temperature 98.4 F Pulse Rate 83 93 85 Respiratory Rate 16 Blood Pressure 163/84 H Pulse Oximetry 98 Oxygen Delivery 07/03/25 04:44 07/03/25 06:00 07/03/25 08:00 Temperature 98.1 F Pulse Rate 84 86 Respiratory Rate 16 Blood Pressure 151/84 H Pulse Oximetry 98 Oxygen Delivery Room Air 07/03/25 08:00 07/03/25 08:00 07/03/25 08:05 Temperature Pulse Rate 92 91 Respiratory Rate 20 Blood Pressure Pulse Oximetry 99 Oxygen Delivery Room Air Room Air 07/03/25 08:50 07/03/25 10:00 07/03/25 12:00 Temperature 98.2 F Pulse Rate 93 84 85 Respiratory Rate 16 Blood Pressure 136/80 Pulse Oximetry 95 Oxygen Delivery 07/03/25 12:00 07/03/25 12:00 07/03/25 14:00 Temperature Pulse Rate 82 84 Respiratory Rate Blood Pressure Pulse Oximetry Oxygen Delivery Room Air Intake/Output Intake/Output: Intake & Output 06/30/25 07/01/25 07/02/25 07/03/25 23:59 23:59 23:59 23:59 Intake Total 2093.8 1890 1530 Output Total 1060 3825 490 Balance 1033.8 -1935 1040 Meds/Results Medications: Active Medications Generic Name Dose Route Start Last Admin Trade Name Freq PRN Reason Stop Dose Admin Acetaminophen 650 mg 07/01/25 09:55 07/02/25 16:55 Acetaminophen 325 Mg Tablet PO 650 mg Q4H PRN Administration Mild Pain (1-3) or Fever Apixaban 5 mg 07/01/25 21:00 07/03/25 08:50 Apixaban 5 Mg Tablet PO 5 mg Q12HR ERICK Administration Aspirin 81 mg 07/01/25 12:30 07/03/25 08:50 Aspirin 81 Mg Chewable Tablet PO 81 mg DAILY@0800 ERICK Administration Atorvastatin Calcium 20 mg 07/01/25 12:30 07/03/25 08:50 Atorvastatin 20 Mg Tablet PO 20 mg DAILY ERICK Administration Carvedilol 25 mg 07/02/25 21:00 07/03/25 08:50 Carvedilol 25 Mg Tablet PO 25 mg Q12HR ERICK Administration Dextrose 12.5 gm 07/01/25 13:21 Dextrose 50% 25 Gm/50 Ml Syringe IV PUSH PRN PRN Hypoglycemia Protocol Diphenhydramine HCl 25 mg 07/02/25 02:12 07/03/25 12:08 Diphenhydramine Hcl Inj 50 Mg/Ml Vial IV PUSH 25 mg Q6H PRN Administration Itching Furosemide 40 mg 07/02/25 09:00 07/03/25 08:49 Furosemide 40 Mg Tablet PO 40 mg DAILY ERICK Administration Glucagon 1 mg 07/01/25 13:21 Glucagon For Inj 1 Mg Vial IM PRN PRN Hypoglycemia Protocol Glucose 15 gm 07/01/25 13:21 Glucose Oral Gel 15 Gm Of Glucse In 37.5 Gm Tube PO PRN PRN Hypoglycemia Protocol Piperacillin Sod/Tazobactam 50 mls @ 100 mls/hr 07/01/25 14:00 07/03/25 14:07 Sod 2.25 gm/ Sodium Chloride IVPB 100 mls/hr Q8HR ERICK Administration Dextrose 1,000 mls @ 100 mls/hr 07/01/25 13:21 Dextrose 5% 1,000 Ml IVPB PRN PRN Hypoglycemia Protocol Albumin Human 50 mls @ 999 mls/hr 07/02/25 05:14 Albutein IVPB 08/01/25 05:13 Q10M PRN HYPOTENSION Albumin Human 50 mls @ 999 mls/hr 07/03/25 11:29 Albutein IVPB 07/04/25 11:28 Q10M PRN HYPOTENSION Insulin Aspart 2 - 4 units 07/01/25 21:00 07/02/25 21:29 Insulin Aspart (*Bkc) 100 Units/Ml SUB-Q 3 units HS [facility] Administration Protocol Insulin Aspart 4 - 8 units 07/01/25 17:00 07/03/25 12:08 Insulin Aspart (*Bkc) 100 Units/Ml SUB-Q 5 units TIDWM ERICK Administration Protocol Insulin Aspart 7 units 07/02/25 17:00 07/03/25 12:08 Insulin Aspart (*Bkc) 100 Units/Ml 0.05 units/kg (7 units) 7 units SUB-Q Administration TIDWM [facility] Insulin Glargine 40 units 07/02/25 09:00 07/03/25 08:49 Insulin Glargine (*Bkc) 100 Units/Ml SUB-Q 40 units DAILY ERICK Administration Lidocaine 1 patch 07/01/25 21:05 07/03/25 08:58 Lidocaine 5% Patch TRANSDERM Not Given DAILY [facility] Lisinopril 20 mg 07/03/25 09:00 07/03/25 08:49 Lisinopril 20 Mg Tablet PO 20 mg QAM ERICK Administration Multi-Ingred Cream/Lotion/Oil/Oint 1 applic 07/02/25 16:30 07/03/25 11:03 Eucerin Cream 120 Gm Jar TOPICAL 1 applic DAILY ERICK Administration Ondansetron HCl 4 mg 07/02/25 09:22 07/02/25 09:31 Ondansetron Inj 4 Mg/2 Ml Vial IV PUSH 4 mg Q6H PRN Administration Nausea And Vomiting Vancomycin HCl 1 each 07/01/25 07:19 Vancomycin For Hemodialysis IVPB PRN PRN Vancomycin Protocol Radiology Results: ITS Impressions Chest CT 07/01/25 05:13 IMPRESSION: 1. Improved coarse interstitial densities of the upper and left lower lobes, likely chronic interstitial lung disease or scarring. Interval resolution of groundglass opacities bilaterally. 2: Abnormal number of borderline size lymph nodes mediastinum, likely reactive. Chest X-Ray 07/01/25 05:21 Impression: 1: No acute cardiopulmonary disease. Foot X-Ray 07/01/25 06:10 Impression: 1: No acute bone or joint abnormality. Labs Labs: Laboratory Results - last 24 hr 07/02/25 07/02/25 07/03/25 15:21 19:46 03:56 WBC 12.4 H RBC 3.85 L Hgb 11.2 L Hct 36.5 L MCV 94.8 MCH 29.1 MCHC 30.7 L RDW 15.7 H Plt Count 348 MPV 9.8 Immature Gran % (Auto) 0.6 H Neut % (Auto) 65.7 Lymph % (Auto) 20.5 [place] % (Auto) 8.8 H Eos % (Auto) 4.1 Baso % (Auto) 0.3 Lymph # (Auto) 2.55 [place] # (Auto) 1.1 H Eos # (Auto) 0.5 H Baso # (Auto) 0.0 Abs Immat Gran (auto) 0.08 H Absolute Neuts (auto) 8.2 H Absolute Nucleated RBC 0.020 H Nucleated RBC % 0.2 Sodium 134 L Potassium 4.2 Chloride 105 Carbon Dioxide 22 Anion Gap 7 BUN 22 H D Creatinine 3.94 H Estim Creat Clear Calc 26 Estimated GFR 13 L Glucose 386 H POC Capillary Glucose 119 H 330 H Calcium 7.7 L Phosphorus 4.9 H Albumin 2.9 L 07/03/25 07/03/25 07:28 11:34 WBC RBC Hgb Hct MCV MCH MCHC RDW Plt Count MPV Immature Gran % (Auto) Neut % (Auto) Lymph % (Auto) [place] % (Auto) Eos % (Auto) Baso % (Auto) Lymph # (Auto) [place] # (Auto) Eos # (Auto) Baso # (Auto) Abs Immat Gran (auto) Absolute Neuts (auto) Absolute Nucleated RBC Nucleated RBC % Sodium Potassium Chloride Carbon Dioxide Anion Gap BUN Creatinine Estim Creat Clear Calc Estimated GFR Glucose POC Capillary Glucose 309 H 253 H Calcium Phosphorus Albumin
[2025-07-03 15:00] LABS: Alanine Aminotransferase 14 U/L (6-35); Albumin Level 3.0 g/dL (3.5-5.1); Alkaline Phosphatase 132 U/L (38-126); Aspartate Amino Transferase 22 U/L (14-36); Bilirubin,Total 0.2 mg/dL (0.2-1.3); Lipase 75 U/L (23-300); Total Protein 6.6 g/dL (6.3-8.2)
[2025-07-03] MEDS: BISACODYL 10 MG SUPPOSITORY RECTAL (15:36)
[2025-07-03] MEDS: traMADol HCL (*CRX) 50 MG TABLET PO (21:02)
[2025-07-04] VITALS (32 sets, daily range): BP systolic 107–184; BP diastolic 57–110; PULSE 64–90; RESP 16–20; TEMP 36.5–37; O2SAT 91–100
[2025-07-04 05:55] LABS: Hematocrit 42.1 % (37.0-47.0); Hemoglobin 12.2 g/dL (12.0-15.0); Immature Granulocyte Percent A 0.6 % (0-0.5); Lymphocytes Absolute Auto 1.68 K/mm3 (0.9-3.2); Mean Corpuscular HGB Conc 29.0 g/dl (32-36); Mean Corpuscular Hemoglobin 28.6 pg (26-34); Mean Corpuscular Volume 98.8 fl (80-100); Nucleated Red Blood Cells Absolute Auto 0.000 K/mm3 (0.0-0.012); Nucleated Red Blood Cells Perc 0.0 % (0.0-0.2); Platelet Count Result 383 k/mm3 (150-375); Red Blood Count 4.26 M/mm3 (4.2-5.4); White Blood Count 14.2 K/mm3 (4.5-10.0)
[2025-07-04 06:09] LABS: Albumin Level 3.3 g/dL (3.5-5.1); Anion Gap 11 mmol/L (4-12); Blood Urea Nitrogen 27 mg/dL (7-17); Calcium 8.4 mg/dL (8.4-10.2); Carbon Dioxide 18 mmol/L (22-30); Chloride 109 mmol/L (98-107); Estimated CRCL calculation 20 ml/min; Estimated Glomerular Filt Rate 10; Glucose 234 mg/dL (65-110); Potassium 4.5 mmol/L (3.4-5.0); Sodium 138 mmol/L (137-145)
[2025-07-04 06:39] LABS: Hypochromasia 1+; Schistocytes None Seen
[2025-07-04 06:40] LABS: Anisocytosis 1+
[2025-07-04] MEDS: PIPERACILLIN/TAZOBACTAM SOD 2.25 GM in SODIUM CHLORIDE 0.9% IV 50 ML 100 ML IVPB ×3 (06:45→21:00)
[2025-07-04] MEDS: MORPHINE SULFATE (*CRX) 2 MG/ML INJ 1 MG IV PUSH (08:10)
[2025-07-04] MEDS: INSULIN GLARGINE (*BKC) 100 UNITS/ML 40 UNITS SUB-Q (10:11)
[2025-07-04] MEDS: FUROSEMIDE 40 MG TABLET PO (10:11)
[2025-07-04] MEDS: ASPIRIN 81 MG CHEWABLE TABLET PO (10:12)
[2025-07-04] MEDS: APIXABAN 5 MG TABLET PO ×2 (10:12→20:48)
[2025-07-04] MEDS: ATORVASTATIN 20 MG TABLET PO (10:12)
--- NOTE | 2025-07-04 10:19 | P.PNNP_ITS ---
Progress Note: A&P Assessment and Plan (1) End stage renal disease: Code(s): N18.6 - End stage renal disease Status: Chronic Assessment and Plan: * hemodialysis is scheduled for today to get back on her Friday schedule * Volume status looks a bit overloaded. Will take some fluid off today as tolerated by her blood pressure * potassium is fine. * BUN is good * CO2 is a bit low. Will see how it is tomorrow. Consider bicarb supplements question (2) Hyperosmolar hyperglycemic state (HHS): Code(s): E11.00 - Type 2 diabetes mellitus with hyperosmolarity without nonketotic hyperglycemic-hyperosmolar coma (NKHHC) Status: Acute Assessment and Plan: * noted to have blood sugars > 700 with normal anion gap * now sugars still running between 70 and 327. * even in the hospital the patient's sugars are still variable * the patient is visually impaired and does not have audio Accu-Cheks. * see #8 (3) Chest pain: Code(s): R07.9 - Chest pain, unspecified Status: Acute Assessment and Plan: * noted on presentation * EKG with no ST elevations or ischemic changes * however, inferior leads at some ST-T changes * troponin negative x 2 * repeat Echo ordered and pending. Last one done in March. * continues carvedilol + ASA + statin (4) Chronic heel ulcer: Qualifiers: Laterality: right Non-pressure ulcer stage: unspecified non-pressure ulcer stage Qualified Code(s): L97.419 - Non-pressure chronic ulcer of right heel and midfoot with unspecified severity Code(s): L97.409 - Non-pressure chronic ulcer of unspecified heel and midfoot with unspecified severity Status: Chronic Assessment and Plan: * rule out infection * follow-up on gram statin and culture * follow blood cultures * would care consulted * on vanc and Zosyn (5) CHF (congestive heart failure): Qualifiers: Heart failure chronicity: acute on chronic Heart failure type: unspecified Qualified Code(s): I50.9 - Heart failure, unspecified Code(s): I50.9 - Heart failure, unspecified Status: Chronic Assessment and Plan: * appears compensated at this timed chest x-ray is clear. * Some weight gain between treatments, so fluid removal with HD to maintain euvolemia * repeat Echo ordered and pending (6) Anemia: Code(s): D64.9 - Anemia, unspecified Status: Chronic Assessment and Plan: * due to ESRD and acute illness * hemoglobin high today. Hold the EPO * follow H/H (7) Hypertension: Code(s): I10 - Essential (primary) hypertension Status: Chronic Assessment and Plan: * Systolic 120 to 160s. * soft BP on admission * BP medications with parameters * on carvedilol and lisinopril * See how things trend out and adjust meds accordingly. * moving fluid today will see how blood pressure is after that (8) Diabetes mellitus: Code(s): E11.9 - Type 2 diabetes mellitus without complications Status: Chronic Assessment and Plan: * poor control at baseline (A1c > 14) * follow accu-cheks * glycemic control per hospitalist Subjective Date/time seen: 07/04/25 10:19 Interval history: patient feels about the same today. No chest pain or shortness of breath Exam Narrative: WDWN in NAD skin no rash head ncat lungs clear bilaterally cor reg no rub abd BS+ nontender and soft ext 1+ edema and some puffiness to the eyelid Objective Data Vital Signs Vital Signs: Vital Signs - 24 hr 07/03/25 12:00 07/03/25 12:00 07/03/25 12:00 Temperature 98.2 F Pulse Rate 85 82 Respiratory Rate 16 Blood Pressure 136/80 Pulse Oximetry 95 Oxygen Delivery Room Air 07/03/25 14:00 07/03/25 16:00 07/03/25 16:00 Temperature 97.6 F Pulse Rate 84 83 Respiratory Rate 16 Blood Pressure 141/82 H Pulse Oximetry 97 Oxygen Delivery Room Air 07/03/25 16:00 07/03/25 18:00 07/03/25 20:00 Temperature 98.5 F Pulse Rate 85 86 86 Respiratory Rate 16 Blood Pressure 156/78 H Pulse Oximetry 97 Oxygen Delivery 07/03/25 20:00 08/31/25 20:00 07/03/25 20:17 Temperature Pulse Rate 86 86 86 Respiratory Rate Blood Pressure Pulse Oximetry Oxygen Delivery Room Air 07/03/25 22:00 07/04/25 00:00 07/04/25 00:00 Temperature 98.3 F Pulse Rate 83 86 81 Respiratory Rate 16 Blood Pressure 156/78 H Pulse Oximetry 97 Oxygen Delivery 07/04/25 00:00 07/04/25 02:00 07/04/25 04:00 Temperature 98 F Pulse Rate 81 83 84 Respiratory Rate 16 Blood Pressure 167/87 H Pulse Oximetry 98 Oxygen Delivery Room Air 07/04/25 04:00 07/04/25 04:00 07/04/25 06:00 Temperature Pulse Rate 84 81 90 Respiratory Rate Blood Pressure Pulse Oximetry Oxygen Delivery Room Air 07/04/25 08:00 07/04/25 10:11 Temperature 97.7 F Pulse Rate 88 86 Respiratory Rate 16 Blood Pressure 167/90 H Pulse Oximetry 100 Oxygen Delivery Intake/Output Intake/Output: Intake & Output 07/01/25 07/02/25 07/03/25 07/04/25 23:59 23:59 23:59 23:59 Intake Total 2093.8 1890 2110 250 Output Total 1060 3825 790 100 Balance 1033.8 -1935 1320 150 Meds/Results Medications: Active Medications Generic Name Dose Route Start Last Admin Trade Name Freq PRN Reason Stop Dose Admin Acetaminophen 650 mg 07/01/25 09:55 07/02/25 16:55 Acetaminophen 325 Mg Tablet PO 650 mg Q4H PRN Administration Mild Pain (1-3) or Fever Apixaban 5 mg 07/01/25 21:00 07/04/25 10:12 Apixaban 5 Mg Tablet PO 5 mg Q12HR ERICK Administration Aspirin 81 mg 07/01/25 12:30 07/04/25 10:12 Aspirin 81 Mg Chewable Tablet PO 81 mg DAILY@0800 ERICK Administration Atorvastatin Calcium 20 mg 07/01/25 12:30 07/04/25 10:12 Atorvastatin 20 Mg Tablet PO 20 mg DAILY ERICK Administration Bisacodyl 10 mg 07/03/25 14:29 Bisacodyl 10 Mg Suppository RECTAL QAM PRN Constipation Carvedilol 25 mg 07/02/25 21:00 07/04/25 10:11 Carvedilol 25 Mg Tablet PO 25 mg Q12HR ERICK Administration Dextrose 12.5 gm 07/01/25 13:21 Dextrose 50% 25 Gm/50 Ml Syringe IV PUSH PRN PRN Hypoglycemia Protocol Diphenhydramine HCl 25 mg 07/02/25 02:12 07/04/25 03:23 Diphenhydramine Hcl Inj 50 Mg/Ml Vial IV PUSH 25 mg Q6H PRN Administration Itching Furosemide 40 mg 07/02/25 09:00 07/04/25 10:11 Furosemide 40 Mg Tablet PO 40 mg DAILY ERICK Administration Glucagon 1 mg 07/01/25 13:21 Glucagon For Inj 1 Mg Vial IM PRN PRN Hypoglycemia Protocol Glucose 15 gm 07/01/25 13:21 Glucose Oral Gel 15 Gm Of Glucse In 37.5 Gm Tube PO PRN PRN Hypoglycemia Protocol Piperacillin Sod/Tazobactam 50 mls @ 100 mls/hr 07/01/25 14:00 07/04/25 07:15 Sod 2.25 gm/ Sodium Chloride IVPB Infused Q8HR ERICK Infusion Dextrose 1,000 mls @ 100 mls/hr 07/01/25 13:21 Dextrose 5% 1,000 Ml IVPB PRN PRN Hypoglycemia Protocol Albumin Human 50 mls @ 999 mls/hr 07/02/25 05:14 Albutein IVPB 08/01/25 05:13 Q10M PRN HYPOTENSION Albumin Human 50 mls @ 999 mls/hr 07/03/25 11:29 Albutein IVPB 07/04/25 11:28 Q10M PRN HYPOTENSION Vancomycin HCl 1,000 mg/ 250 mls @ 250 mls/hr 07/04/25 18:00 Sodium Chloride IVPB 07/04/25 18:59 ONCE ONE Insulin Aspart 2 - 4 units 07/01/25 21:00 07/03/25 20:18 Insulin Aspart (*Bkc) 100 Units/Ml SUB-Q 2 units HS ERICK Administration Protocol Insulin Aspart 4 - 8 units 07/01/25 17:00 07/03/25 16:57 Insulin Aspart (*Bkc) 100 Units/Ml SUB-Q Not Given TIDWM [facility] Protocol Insulin Aspart 10 units 07/04/25 08:00 Insulin Aspart (*Bkc) 100 Units/Ml 0.083 units/kg (10 units) SUB-Q BIDWM ERICK Insulin Aspart 7 units 07/04/25 12:00 Insulin Aspart (*Bkc) 100 Units/Ml 0.05 units/kg (7 units) SUB-Q NOON ERICK Insulin Glargine 40 units 07/02/25 09:00 07/04/25 10:11 Insulin Glargine (*Bkc) 100 Units/Ml SUB-Q 40 units DAILY ERICK Administration Lidocaine 1 patch 07/01/25 21:05 07/04/25 10:12 Lidocaine 5% Patch TRANSDERM Not Given DAILY ERICK Lisinopril 20 mg 07/03/25 09:00 07/04/25 10:12 Lisinopril 20 Mg Tablet PO 20 mg QAM ERICK Administration Multi-Ingred Cream/Lotion/Oil/Oint 1 applic 07/02/25 16:30 07/03/25 11:03 Eucerin Cream 120 Gm Jar TOPICAL 1 applic DAILY ERICK Administration Ondansetron HCl 4 mg 07/02/25 09:22 07/02/25 09:31 Ondansetron Inj 4 Mg/2 Ml Vial IV PUSH 4 mg Q6H PRN Administration Nausea And Vomiting Polyethylene Glycol 17 gm 07/03/25 14:30 07/04/25 10:12 Polyethylene Glycol 3350 17 Gm Powd.Pack PO Not Given QAM ERICK Vancomycin HCl 1 each 07/01/25 07:19 Vancomycin For Hemodialysis IVPB PRN PRN Vancomycin Protocol Radiology Results: ITS Impressions Chest CT 07/01/25 05:13 IMPRESSION: 1. Improved coarse interstitial densities of the upper and left lower lobes, likely chronic interstitial lung disease or scarring. Interval resolution of groundglass opacities bilaterally. 2: Abnormal number of borderline size lymph nodes mediastinum, likely reactive. Chest X-Ray 07/01/25 05:21 Impression: 1: No acute cardiopulmonary disease. Foot X-Ray 07/01/25 06:10 Impression: 1: No acute bone or joint abnormality. Labs Labs: Laboratory Results - last 24 hr 07/03/25 07/03/25 07/03/25 11:34 14:41 16:30 WBC RBC Hgb Hct MCV MCH MCHC RDW Plt Count MPV Immature Gran % (Auto) Neut % (Auto) Lymph % (Auto) [place] % (Auto) Eos % (Auto) Baso % (Auto) Lymph # (Auto) [place] # (Auto) Eos # (Auto) Baso # (Auto) Abs Immat Gran (auto) Absolute Neuts (auto) Absolute Nucleated RBC Band Neutrophils % Nucleated RBC % Platelet Estimate Hypochromasia Anisocytosis Schistocytes Sodium Potassium Chloride Carbon Dioxide Anion Gap BUN Creatinine Estim Creat Clear Calc Estimated GFR Glucose POC Capillary Glucose 253 H 91 Calcium Phosphorus Total Bilirubin 0.2 Direct Bilirubin 0.0 AST 22 ALT 14 Alkaline Phosphatase 132 H Total Protein 6.6 Albumin 3.0 L Lipase 75 Random Vancomycin 07/03/25 07/04/25 07/04/25 19:55 05:43 07:19 WBC 14.2 H RBC 4.26 Hgb 12.2 Hct 42.1 MCV 98.8 MCH 28.6 MCHC 29.0 L RDW 16.1 H Plt Count 383 H MPV 9.3 Immature Gran % (Auto) 0.6 H Neut % (Auto) 78.6 H Lymph % (Auto) 11.8 L [place] % (Auto) 5.3 Eos % (Auto) 3.4 Baso % (Auto) 0.3 Lymph # (Auto) 1.68 [place] # (Auto) 0.8 H Eos # (Auto) 0.5 H Baso # (Auto) 0.0 Abs Immat Gran (auto) 0.08 H Absolute Neuts (auto) 11.2 H Absolute Nucleated RBC 0.000 Band Neutrophils % Not Reportable Nucleated RBC % 0.0 Platelet Estimate Adequate Hypochromasia 1+ Anisocytosis 1+ Schistocytes None seen Sodium 138 Potassium 4.5 Chloride 109 H Carbon Dioxide 18 L Anion Gap 11 BUN 27 H Creatinine 5.03 H Estim Creat Clear Calc 20 Estimated GFR 10 L Glucose 234 H POC Capillary Glucose 257 H 237 H Calcium 8.4 Phosphorus 5.9 H Total Bilirubin Direct Bilirubin AST ALT Alkaline Phosphatase Total Protein Albumin 3.3 L Lipase Random Vancomycin 16.4
[2025-07-04] MEDS: INSULIN ASPART (*BKC) 100 UNITS/ML SUB-Q (12:31)
[2025-07-04] MEDS: INSULIN ASPART (*BKC) 100 UNITS/ML 7 UNITS SUB-Q (12:31)
[2025-07-04] MEDS: ONDANSETRON INJ 4 MG/2 ML VIAL IV PUSH (12:34)
--- NOTE | 2025-07-04 16:36 | P.PNIM_ITS ---
Progress Note: A&P Assessment and Plan (1) Abdominal pain: Code(s): R10.9 - Unspecified abdominal pain Status: Acute Assessment and Plan: Patient with complaints of abdominal pain. Unaffected by eating. Possibly constipation. Not a surgical abd. Lipase and LFTs okay. Added Miralax. No BMs listed. Follow (2) Chest pain: Code(s): R07.9 - Chest pain, unspecified Status: Acute Assessment and Plan: Patient presents with chest pain occurring at rest lasting about 30 seconds. Troponin negative x2 (5hrs apart). EKG showing NSR, LAE, poor R wave progression and inferior ST-T changes. Repeat EKG showing no change. Atypical chest pain. Negative workup but still at high risk for coronary disease. Consider musculoskeletal. CT chest did not show any obvious fracture to right humerus, clavicle. Shoulder pain is musculoskeletal felt related to her inactivity. Resumed Coreg. ASA and Lipitor added. Echo from March reviewed. Lipid panel noted. Plan for outpatient ischemic evaluation. Encouraged patient to be out of bed. PT/OT to help with transfers. (3) Diabetic ketoacidosis: Code(s): E11.10 - Type 2 diabetes mellitus with ketoacidosis without coma Status: Acute Assessment and Plan: Patient presents with chest pain and found to have glucose of 757. Bicarb low at 15 with normal AG. BHOB 0.96. No n/v. VBG 7.23/40/42 on RA. Harvey she has early DKA related to poor compliance Insulin gtt and IV fluids started per DKA protocol. [employer] consulted and appreciate their input. AG remained closed. Still with metabolic acidosis but felt related to ESRD. Insulin regiment stopped. DKA resolved. Add oral bicarb for her persistent acidosis (4) Diabetes mellitus: Code(s): E11.9 - Type 2 diabetes mellitus without complications Status: Chronic Assessment and Plan: Patient with longstanding, uncontrolled DM as seen with end stage organ disease and vision loss. Last 2 years, A1c was 5.9-7.0 related to tighter control at the facility. A1c >14 multiple times this year since being at home and no longer is tightly controlled. Patient declined Diab education Continue AccuCheks covering with sliding scale. Hypoglycemia protocol available as needed. Continue Lantus and meal time insulin. Will advance meal time insulin for breakfast and dinner (5) End-stage renal disease (ESRD): Code(s): N18.6 - End stage renal disease Status: Acute Assessment and Plan: Patient with ESRD x 2 years. -- schedule. Nephrology consulted and appreciate their input. Dialysis planned for today. Continue HD per Nephrology recommendation. (6) Chronic heel ulcer: Qualifiers: Laterality: right Non-pressure ulcer stage: unspecified non-pressure ulcer stage Qualified Code(s): L97.419 - Non-pressure chronic ulcer of right heel and midfoot with unspecified severity Code(s): L97.409 - Non-pressure chronic ulcer of unspecified heel and midfoot with unspecified severity Status: Chronic Assessment and Plan: Patient with chronic right heel ulcer that clinically does not appear infected. Rt Foot xray showing no acute bone or joint abnormalities. storage and backup administrator also did not feel this was infected but Silver gel started. BCx NGTD Wound gram stain noted. WCx no growth Started on Zosyn and Vancomycin WBC up to 14K now Follow up on cultures. Wound care following. Continue abx for now Continue daily dressing changes. Consider stopping abx if cx remain negative. (7) Anemia: Code(s): D64.9 - Anemia, unspecified Status: Chronic Assessment and Plan: Chart review showing workup in the past consistent with anemia of chronic disease felt related to her ESRD. Hgb 11.5 but normally runs 9-10 earlier this year. Hgb stable and actually up to 12. Follow intermittently (8) Obstructive sleep apnea: Code(s): G47.33 - Obstructive sleep apnea (adult) (pediatric) Status: Acute Assessment and Plan: Patient has not had a formal polysomnogram but had positive ApneaLink August 2023. Will need to arrange as outpatient (9) Hypertension: Code(s): I10 - Essential (primary) hypertension Status: Chronic Assessment and Plan: Patient's blood pressure was reviewed on 07/04 Blood pressure remains mildly elevated. Coreg, Lasix and Lisinopril resumed. Will continue to follow. Add back Norvasc tomorrow after dialysis if BP still elevated (10) CHF (congestive heart failure): Qualifiers: Heart failure chronicity: acute on chronic Heart failure type: unspecified Qualified Code(s): I50.9 - Heart failure, unspecified Code(s): I50.9 - Heart failure, unspecified Status: Chronic Assessment and Plan: Patient with hx of chronic diastolic CHF. 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 Consider placement. Subjective Date/time seen: 07/04/25 16:36 Interval history: 34yo female with EDD, insulin dependent DM, dCHF, HTN and ESRD who presents with complaints of chest pain. Complains of right posterior neck and shoulder pain. Has chronic right shoulder pain since shoulder infectionin August 2024. Not out of bed much since admissi on. HD on 07/02 with 3.7L. Plan for HD again today. Exam Narrative: AF 97.9 130/81 84 20 97% ra Gen - NARD Chest - CTA bilaterally. Left upper chest tunneled dialysis catheter to left IJ CV - RRR. S1-S2. Tele showing no acute dysrhythmias Abd - abdomen was soft. Obese. +BS. Ext - left AKA. Right LE in heel protector. Right heel and sher dressings clean, dry and intact. Right posterior shoulder, upper back and right posterior neck palpable pain Psych - normal mood and affect. Skin - warm and dry. Objective Data Vital Signs Vital Signs: Vital Signs - 24 hr 07/03/25 18:00 07/03/25 20:00 07/03/25 20:00 Temperature 98.5 F Pulse Rate 86 86 86 Respiratory Rate 16 Blood Pressure 156/78 H Pulse Oximetry 97 Oxygen Delivery Room Air 07/03/25 20:00 07/03/25 20:17 07/03/25 22:00 Temperature Pulse Rate 86 86 83 Respiratory Rate Blood Pressure Pulse Oximetry Oxygen Delivery 07/04/25 00:00 07/04/25 00:00 07/04/25 00:00 Temperature 98.3 F Pulse Rate 86 81 81 Respiratory Rate 16 Blood Pressure 156/78 H Pulse Oximetry 97 Oxygen Delivery Room Air 07/04/25 02:00 07/04/25 04:00 07/04/25 04:00 Temperature 98 F Pulse Rate 83 84 84 Respiratory Rate 16 Blood Pressure 167/87 H Pulse Oximetry 98 Oxygen Delivery 07/04/25 04:00 07/04/25 06:00 07/04/25 08:00 Temperature 97.7 F Pulse Rate 81 90 88 Respiratory Rate 16 Blood Pressure 167/90 H Pulse Oximetry 100 Oxygen Delivery Room Air 07/04/25 08:00 07/04/25 08:00 07/04/25 10:00 Temperature Pulse Rate 89 86 Respiratory Rate Blood Pressure Pulse Oximetry Oxygen Delivery Room Air 07/04/25 10:11 07/04/25 11:30 07/04/25 12:00 Temperature 97.7 F Pulse Rate 86 88 Respiratory Rate 20 Blood Pressure 176/85 H Pulse Oximetry 98 Oxygen Delivery Room Air 07/04/25 12:00 07/04/25 13:00 07/04/25 13:08 Temperature 97.9 F Pulse Rate 87 85 84 Respiratory Rate 20 Blood Pressure 184/103 H 177/110 H Pulse Oximetry 97 Oxygen Delivery 07/04/25 13:15 07/04/25 13:30 07/04/25 13:45 Temperature Pulse Rate 85 86 87 Respiratory Rate Blood Pressure 178/105 H 162/98 H 163/102 H Pulse Oximetry Oxygen Delivery 07/04/25 14:00 07/04/25 14:00 07/04/25 14:15 Temperature Pulse Rate 87 88 87 Respiratory Rate Blood Pressure 160/102 H 169/100 H Pulse Oximetry Oxygen Delivery 07/04/25 14:30 07/04/25 14:45 07/04/25 15:00 Temperature Pulse Rate 86 87 86 Respiratory Rate Blood Pressure 157/96 H 155/89 H 154/87 H Pulse Oximetry Oxygen Delivery 07/04/25 15:15 07/04/25 15:30 07/04/25 15:45 Temperature Pulse Rate 86 85 85 Respiratory Rate Blood Pressure 151/87 H 142/86 H 152/94 H Pulse Oximetry Oxygen Delivery 07/04/25 16:00 07/04/25 16:15 07/04/25 16:30 Temperature Pulse Rate 85 85 84 Respiratory Rate Blood Pressure 152/96 H 143/89 H 130/81 Pulse Oximetry Oxygen Delivery Intake/Output Intake/Output: Intake & Output 07/01/25 07/02/25 07/03/25 07/04/25 23:59 23:59 23:59 23:59 Intake Total 2093.8 1890 2110 490 Output Total 1060 3825 790 800 Balance 1033.8 -9535 1320 -617 Meds/Results Medications: Active Medications Generic Name Dose Route Start Last Admin Trade Name Freq PRN Reason Stop Dose Admin Acetaminophen 650 mg 07/01/25 09:55 07/02/25 16:55 Acetaminophen 325 Mg Tablet PO 650 mg Q4H PRN Administration Mild Pain (1-3) or Fever Apixaban 5 mg 07/01/25 21:00 07/04/25 10:12 Apixaban 5 Mg Tablet PO 5 mg Q12HR ERICK Administration Aspirin 81 mg 07/01/25 12:30 07/04/25 10:12 Aspirin 81 Mg Chewable Tablet PO 81 mg DAILY@0800 ERICK Administration Atorvastatin Calcium 20 mg 07/01/25 12:30 07/04/25 10:12 Atorvastatin 20 Mg Tablet PO 20 mg DAILY ERICK Administration Bisacodyl 10 mg 07/03/25 14:29 Bisacodyl 10 Mg Suppository RECTAL QAM PRN Constipation Carvedilol 25 mg 07/02/25 21:00 07/04/25 10:11 Carvedilol 25 Mg Tablet PO 25 mg Q12HR ERICK Administration Dextrose 12.5 gm 07/01/25 13:21 Dextrose 50% 25 Gm/50 Ml Syringe IV PUSH PRN PRN Hypoglycemia Protocol Diphenhydramine HCl 25 mg 07/02/25 02:12 07/04/25 10:22 Diphenhydramine Hcl Inj 50 Mg/Ml Vial IV PUSH 25 mg Q6H PRN Administration Itching Furosemide 40 mg 07/02/25 09:00 07/04/25 10:11 Furosemide 40 Mg Tablet PO 40 mg DAILY ERICK Administration Glucagon 1 mg 07/01/25 13:21 Glucagon For Inj 1 Mg Vial IM PRN PRN Hypoglycemia Protocol Glucose 15 gm 07/01/25 13:21 Glucose Oral Gel 15 Gm Of Glucse In 37.5 Gm Tube PO PRN PRN Hypoglycemia Protocol Piperacillin Sod/Tazobactam 50 mls @ 100 mls/hr 07/01/25 14:00 07/04/25 07:15 Sod 2.25 gm/ Sodium Chloride IVPB Infused Q8HR ERICK Infusion Dextrose 1,000 mls @ 100 mls/hr 07/01/25 13:21 Dextrose 5% 1,000 Ml IVPB PRN PRN Hypoglycemia Protocol Albumin Human 50 mls @ 999 mls/hr 07/02/25 05:14 Albutein IVPB 08/01/25 05:13 Q10M PRN HYPOTENSION Vancomycin HCl 1,000 mg/ 250 mls @ 250 mls/hr 07/04/25 18:00 Sodium Chloride IVPB 07/04/25 18:59 ONCE ONE Insulin Aspart 2 - 4 units 07/01/25 21:00 07/03/25 20:18 Insulin Aspart (*Bkc) 100 Units/Ml SUB-Q 2 units HS ERICK Administration Protocol Insulin Aspart 4 - 8 units 07/01/25 17:00 07/04/25 12:31 Insulin Aspart (*Bkc) 100 Units/Ml SUB-Q 4 units TIDWM ERICK Administration Protocol Insulin Aspart 10 units 07/04/25 08:00 07/04/25 11:10 Insulin Aspart (*Bkc) 100 Units/Ml 0.083 units/kg (10 units) Not Given SUB-Q BIDWM ERICK Insulin Aspart 7 units 07/04/25 12:00 07/04/25 12:31 Insulin Aspart (*Bkc) 100 Units/Ml 0.05 units/kg (7 units) 7 units SUB-Q Administration NOON ERICK Insulin Glargine 40 units 07/02/25 09:00 07/04/25 10:11 Insulin Glargine (*Bkc) 100 Units/Ml SUB-Q 40 units DAILY ERICK Administration Lidocaine 1 patch 07/01/25 21:05 07/04/25 10:12 Lidocaine 5% Patch TRANSDERM Not Given DAILY ERICK Lisinopril 20 mg 07/03/25 09:00 07/04/25 10:12 Lisinopril 20 Mg Tablet PO 20 mg QAM ERICK Administration Multi-Ingred Cream/Lotion/Oil/Oint 1 applic 07/02/25 16:30 07/03/25 11:03 Eucerin Cream 120 Gm Jar TOPICAL 1 applic DAILY ERICK Administration Ondansetron HCl 4 mg 07/02/25 09:22 07/04/25 12:34 Ondansetron Inj 4 Mg/2 Ml Vial IV PUSH 4 mg Q6H PRN Administration Nausea And Vomiting Polyethylene Glycol 17 gm 07/03/25 14:30 07/04/25 10:12 Polyethylene Glycol 3350 17 Gm Powd.Pack PO Not Given QAM ERICK Vancomycin HCl 1 each 07/01/25 07:19 Vancomycin For Hemodialysis IVPB PRN PRN Vancomycin Protocol Radiology Results: ITS Impressions Chest CT 07/01/25 05:13 IMPRESSION: 1. Improved coarse interstitial densities of the upper and left lower lobes, likely chronic interstitial lung disease or scarring. Interval resolution of groundglass opacities bilaterally. 2: Abnormal number of borderline size lymph nodes mediastinum, likely reactive. Chest X-Ray 07/01/25 05:21 Impression: 1: No acute cardiopulmonary disease. Foot X-Ray 07/01/25 06:10 Impression: 1: No acute bone or joint abnormality. Labs Labs: Laboratory Results - last 24 hr 07/03/25 07/03/25 07/04/25 16:30 19:55 05:43 WBC 14.2 H RBC 4.26 Hgb 12.2 Hct 42.1 MCV 98.8 MCH 28.6 MCHC 29.0 L RDW 16.1 H Plt Count 383 H MPV 9.3 Immature Gran % (Auto) 0.6 H Neut % (Auto) 78.6 H Lymph % (Auto) 11.8 L Terrell % (Auto) 5.3 Eos % (Auto) 3.4 Baso % (Auto) 0.3 Lymph # (Auto) 1.68 Terrell # (Auto) 0.8 H Eos # (Auto) 0.5 H Baso # (Auto) 0.0 Abs Immat Gran (auto) 0.08 H Absolute Neuts (auto) 11.2 H Absolute Nucleated RBC 0.000 Band Neutrophils % Not Reportable Nucleated RBC % 0.0 Platelet Estimate Adequate Hypochromasia 1+ Anisocytosis 1+ Schistocytes None seen Sodium 138 Potassium 4.5 Chloride 109 H Carbon Dioxide 18 L Anion Gap 11 BUN 27 H Creatinine 5.03 H Estim Creat Clear Calc 20 Estimated GFR 10 L Glucose 234 H POC Capillary Glucose 91 257 H Calcium 8.4 Phosphorus 5.9 H Albumin 3.3 L Random Vancomycin 16.4 07/04/25 07/04/25 07:19 11:22 WBC RBC Hgb Hct MCV MCH MCHC RDW Plt Count MPV Immature Gran % (Auto) Neut % (Auto) Lymph % (Auto) Terrell % (Auto) Eos % (Auto) Baso % (Auto) Lymph # (Auto) Terrell # (Auto) Eos # (Auto) Baso # (Auto) Abs Immat Gran (auto) Absolute Neuts (auto) Absolute Nucleated RBC Band Neutrophils % Nucleated RBC % Platelet Estimate Hypochromasia Anisocytosis Schistocytes Sodium Potassium Chloride Carbon Dioxide Anion Gap BUN Creatinine Estim Creat Clear Calc Estimated GFR Glucose POC Capillary Glucose 237 H 245 H Calcium Phosphorus Albumin Random Vancomycin
[2025-07-04] MEDS: SODIUM BICARBONATE TAB 325 MG TABLET PO (17:21)
[2025-07-04] MEDS: VANCOMYCIN HCL 1,000 MG in SODIUM CHLORIDE 0.9% IV 250 ML 250 MG IVPB (17:58)
[2025-07-04] MEDS: CYCLOBENZAPRINE HCL 5 MG TABLET PO (17:59)
[2025-07-04] MEDS: EUCERIN CREAM 120 GM JAR 1 APPLIC TOPICAL (18:23)
--- NOTE | 2025-07-04 18:54 | PC.NURSE ---
This patient, Gay Canales, was transferred to [facility] on 07/04/25 at 1854. Personal belongings sent with patient. Report given to Elaine SAMUEL. Appropriate documentation sent with patient.
[2025-07-05] VITALS (7 sets, daily range): BP systolic 114–143; BP diastolic 68–86; PULSE 84–88; RESP 16–20; TEMP 36.4–36.6; O2SAT 97–100
[2025-07-05] MEDS: CYCLOBENZAPRINE HCL 5 MG TABLET PO (03:10)
[2025-07-05 04:49] LABS: Hematocrit 42.4 % (37.0-47.0); Hemoglobin 12.7 g/dL (12.0-15.0); Mean Corpuscular HGB Conc 30.0 g/dl (32-36); Mean Corpuscular Hemoglobin 28.7 pg (26-34); Mean Corpuscular Volume 95.9 fl (80-100); Platelet Count Result 393 k/mm3 (150-375); Red Blood Count 4.42 M/mm3 (4.2-5.4); White Blood Count 12.0 K/mm3 (4.5-10.0)
[2025-07-05 05:13] LABS: Albumin Level 3.3 g/dL (3.5-5.1); Anion Gap 9 mmol/L (4-12); Blood Urea Nitrogen 17 mg/dL (7-17); Calcium 8.2 mg/dL (8.4-10.2); Carbon Dioxide 26 mmol/L (22-30); Chloride 101 mmol/L (98-107); Estimated CRCL calculation 26 ml/min; Estimated Glomerular Filt Rate 14; Glucose 152 mg/dL (65-110); Potassium 4.2 mmol/L (3.4-5.0); Sodium 136 mmol/L (137-145)
[2025-07-05] MEDS: PIPERACILLIN/TAZOBACTAM SOD 2.25 GM in SODIUM CHLORIDE 0.9% IV 50 ML 100 ML IVPB (05:54)
[2025-07-05] MEDS: SODIUM BICARBONATE TAB 325 MG TABLET PO ×2 (08:37→17:31)
[2025-07-05] MEDS: ATORVASTATIN 20 MG TABLET PO (08:37)
[2025-07-05] MEDS: ASPIRIN 81 MG CHEWABLE TABLET PO (08:37)
[2025-07-05] MEDS: INSULIN GLARGINE (*BKC) 100 UNITS/ML 40 UNITS SUB-Q (08:37)
[2025-07-05] MEDS: FUROSEMIDE 40 MG TABLET PO (08:37)
[2025-07-05] MEDS: EUCERIN CREAM 120 GM JAR 1 APPLIC TOPICAL (08:38)
[2025-07-05] MEDS: INSULIN ASPART (*BKC) 100 UNITS/ML 10 UNITS SUB-Q ×2 (08:38→17:31)
[2025-07-05] MEDS: APIXABAN 5 MG TABLET PO ×2 (08:41→20:31)
--- NOTE | 2025-07-05 09:57 | P.PNNP_ITS ---
Progress Note: A&P Assessment and Plan (1) End stage renal disease: Code(s): N18.6 - End stage renal disease Status: Chronic Assessment and Plan: * HD tomorrow * continue Fri/Fri/Friday outpatient dialysis schedule * follow electrolytes, volume status, and clearance (2) Hyperosmolar hyperglycemic state (HHS): Code(s): E11.00 - Type 2 diabetes mellitus with hyperosmolarity without nonketotic hyperglycemic-hyperosmolar coma ([facility]) Status: Acute Assessment and Plan: * resolved * noted to have blood sugars > 700 with normal anion gap * initially on insuling gtt but has since been weaned off * brittle control at baseline * see #8 (3) Chest pain: Code(s): R07.9 - Chest pain, unspecified Status: Acute Assessment and Plan: * noted on presentation * EKG with no ST elevations or ischemic changes * however, inferior leads at some ST-T changes * troponin negative x 2 * last Echo in March 2025 noted * continue carvedilol + ASA + statin * plan outpatient ischemic evaluation (4) Chronic heel ulcer: Qualifiers: Laterality: right Non-pressure ulcer stage: unspecified non-pressure ulcer stage Qualified Code(s): L97.419 - Non-pressure chronic ulcer of right heel and midfoot with unspecified severity Code(s): L97.409 - Non-pressure chronic ulcer of unspecified heel and midfoot with unspecified severity Status: Chronic Assessment and Plan: * local wound care * culture data noted: * blood cultures negative to date * wound culture with mixed skin nish * would care following * on empiric antibiotics (5) CHF (congestive heart failure): Qualifiers: Heart failure chronicity: acute on chronic Heart failure type: u nspecified Qualified Code(s): I50.9 - Heart failure, unspecified Code(s): I50.9 - Heart failure, unspecified Status: Chronic Assessment and Plan: * seems compensated * continue fluid removal with HD to maintain euvolemia * March 2025 Echo results noted (6) Anemia: Code(s): D64.9 - Anemia, unspecified Status: Chronic Assessment and Plan: * due to ESRD and acute illness * Epogen with HD PRN * follow H/H (7) Hypertension: Code(s): I10 - Essential (primary) hypertension Status: Chronic Assessment and Plan: * reasonable control * on home medications (carvedilol + lisinopril) * follow trend of hemodynamics (8) Diabetes mellitus: Code(s): E11.9 - Type 2 diabetes mellitus without complications Status: Chronic Assessment and Plan: * poor control at baseline (A1c > 14) * follow accu-cheks * glycemic control per hospitalist Not opposed to discharge from renal perspective if otherwise medically stable...I can follow-up with her at her outpatient dialysis clinic. Will continue to follow. L Subjective Date/time seen: 07/05/25 09:57 Interval history: Follow-up for end stage renal disease on hemodialysis. Tolerated dialysis treatment yesterday without any issues or problems; resting comfortably in bed at the time of my visit; no apparent issues/events overnight or earlier this morning; no apparent distress voiced. Exam 2 Narrative: General: WD/WN female in NAD Heart: normal S1 and S2; no rub Lungs: clear to auscultation Abdomen: soft, nontender, nondistended, positive bowel sounds Extremities: no cyanosis or clubbing; no edema Skin: no rash Objective Data Vital Signs Vital Signs: Vital Signs Temp Pulse Resp BP Pulse Ox O2 Del Method 07/05/25 08:37 87 07/05/25 08:35 Room Air 07/05/25 08:00 97.6 F 88 16 114/71 100 07/05/25 04:00 97.8 F 87 20 143/68 H 97 07/04/25 23:57 97.7 F 72 18 115/57 L 95 07/04/25 23:44 97.7 F 64 18 107/63 96 07/04/25 20:48 89 07/04/25 20:00 89 20 91 Room Air 07/04/25 20:00 97.7 F 89 20 172/100 H 91 07/04/25 16:45 98.2 F 86 20 143/86 H 100 07/04/25 16:40 66 119/68 07/04/25 16:30 84 130/81 07/04/25 16:15 85 143/89 H 07/04/25 16:00 85 152/96 H 07/04/25 15:45 85 152/94 H 07/04/25 15:30 85 142/86 H 07/04/25 15:15 86 151/87 H 07/04/25 15:00 86 154/87 H 07/04/25 14:45 87 155/89 H 07/04/25 14:30 86 157/96 H 07/04/25 14:15 87 169/100 H 07/04/25 14:00 88 07/04/25 14:00 87 160/102 H 07/04/25 13:45 87 163/102 H 07/04/25 13:30 86 162/98 H 07/04/25 13:15 85 178/105 H 07/04/25 13:08 84 177/110 H 07/04/25 13:00 97.9 F 85 20 184/103 H 97 Intake/Output Intake/Output: Intake & Output 07/02/25 07/03/25 07/04/25 07/05/25 23:59 23:59 23:59 23:59 Intake Total 1890 2110 2480 360 Output Total 3825 790 4800 Balance -1935 1320 -2320 360 Meds/Results Medications: Active Medications Generic Name Dose Route Start Last Admin Trade Name Freq PRN Reason Stop Dose Admin Acetaminophen 650 mg 07/01/25 09:55 07/02/25 16:55 Acetaminophen 325 Mg Tablet PO 650 mg Q4H PRN Administration Mild Pain (1-3) or Fever Apixaban 5 mg 07/01/25 21:00 07/05/25 08:41 Apixaban 5 Mg Tablet PO 5 mg Q12HR ERICK Administration Aspirin 81 mg 07/01/25 12:30 07/05/25 08:37 Aspirin 81 Mg Chewable Tablet PO 81 mg DAILY@0800 ERICK Administration Atorvastatin Calcium 20 mg 07/01/25 12:30 07/05/25 08:37 Atorvastatin 20 Mg Tablet PO 20 mg DAILY ERICK Administration Bisacodyl 10 mg 07/03/25 14:29 Bisacodyl 10 Mg Suppository RECTAL QAM PRN Constipation Carvedilol 25 mg 07/02/25 21:00 07/05/25 08:37 Carvedilol 25 Mg Tablet PO 25 mg Q12HR ERICK Administration Cyclobenzaprine HCl 5 mg 07/04/25 17:26 07/05/25 03:10 Cyclobenzaprine Hcl 5 Mg Tablet PO 5 mg Q8HR PRN Administration Muscle Spasm Dextrose 12.5 gm 07/01/25 13:21 Dextrose 50% 25 Gm/50 Ml Syringe IV PUSH PRN PRN Hypoglycemia Protocol Diphenhydramine HCl 25 mg 07/02/25 02:12 07/05/25 10:16 Diphenhydramine Hcl Inj 50 Mg/Ml Vial IV PUSH 25 mg Q6H PRN Administration Itching Doxycycline Hyclate 100 mg 07/05/25 21:00 Doxycycline Hyclate 100 Mg Tablet PO 07/07/25 21:01 Q12HR ERICK Furosemide 40 mg 07/02/25 09:00 07/05/25 08:37 Furosemide 40 Mg Tablet PO 40 mg DAILY ERICK Administration Glucagon 1 mg 07/01/25 13:21 Glucagon For Inj 1 Mg Vial IM PRN PRN Hypoglycemia Protocol Glucose 15 gm 07/01/25 13:21 Glucose Oral Gel 15 Gm Of Glucse In 37.5 Gm Tube PO PRN PRN Hypoglycemia Protocol Hydralazine HCl 10 mg 07/04/25 21:18 07/04/25 21:28 Hydralazine Hcl 20 Mg/Ml Vial IV PUSH 10 mg Q8H PRN Administration Blood Pressure - High Dextrose 1,000 mls @ 100 mls/hr 07/01/25 13:21 Dextrose 5% 1,000 Ml IVPB PRN PRN Hypoglycemia Protocol Albumin Human 50 mls @ 999 mls/hr 07/02/25 05:14 Albutein IVPB 08/01/25 05:13 Q10M PRN HYPOTENSION Insulin Aspart 2 - 4 units 07/01/25 21:00 07/04/25 20:55 Insulin Aspart (*Bkc) 100 Units/Ml SUB-Q Not Given HS [facility] Protocol Insulin Aspart 4 - 8 units 07/01/25 17:00 07/05/25 08:07 Insulin Aspart (*Bkc) 100 Units/Ml SUB-Q Not Given TIDWM [facility] Protocol Insulin Aspart 10 units 07/04/25 08:00 07/05/25 08:38 Insulin Aspart (*Bkc) 100 Units/Ml 0.083 units/kg (10 units) 10 units SUB-Q Administration BIDWM [facility] Insulin Aspart 7 units 07/04/25 12:00 07/04/25 12:31 Insulin Aspart (*Bkc) 100 Units/Ml 0.05 units/kg (7 units) 7 units SUB-Q Administration NOON [facility] Insulin Glargine 40 units 07/02/25 09:00 07/05/25 08:37 Insulin Glargine (*Bkc) 100 Units/Ml SUB-Q 40 units DAILY ERICK Administration Levofloxacin 750 mg 07/05/25 14:00 Levofloxacin 750 Mg Tablet PO 07/05/25 14:01 ONCE ONE Levofloxacin 500 mg 07/07/25 09:00 Levofloxacin 500 Mg Tablet PO 07/07/25 09:01 ONCE ONE Lidocaine 1 patch 07/01/25 21:05 07/05/25 08:38 Lidocaine 5% Patch TRANSDERM Not Given DAILY ERICK Lisinopril 20 mg 07/03/25 09:00 07/05/25 08:37 Lisinopril 20 Mg Tablet PO 20 mg QAM ERICK Administration Multi-Ingred Cream/Lotion/Oil/Oint 1 applic 07/02/25 16:30 07/05/25 08:38 Eucerin Cream 120 Gm Jar TOPICAL 1 applic DAILY ERICK Administration Ondansetron HCl 4 mg 07/02/25 09:22 07/05/25 10:16 Ondansetron Inj 4 Mg/2 Ml Vial IV PUSH 4 mg Q6H PRN Administration Nausea And Vomiting Polyethylene Glycol 17 gm 07/04/25 17:00 07/05/25 08:40 Polyethylene Glycol 3350 17 Gm Powd.Pack PO Not Given BID ERICK Sodium Bicarbonate 325 mg 07/04/25 17:00 07/05/25 08:37 Sodium Bicarbonate Tab 325 Mg Tablet PO 325 mg BID ERICK Administration Radiology Results: ITS Impressions Chest CT 07/01/25 05:13 IMPRESSION: 1. Improved coarse interstitial densities of the upper and left lower lobes, likely chronic interstitial lung disease or scarring. Interval resolution of groundglass opacities bilaterally. 2: Abnormal number of borderline size lymph nodes mediastinum, likely reactive. Chest X-Ray 07/01/25 05:21 Impression: 1: No acute cardiopulmonary disease. Foot X-Ray 07/01/25 06:10 Impression: 1: No acute bone or joint abnormality. Labs Labs: Laboratory Tests 07/05/25 04:23 07/05/25 04:23 Calcium 8.2 L Phosphorus 4.7 H Albumin 3.3 L Microbiology 07/01/25 03:26 Blood Blood Culture - Preliminary 07/01/25 03:26 Blood Blood Culture - Preliminary 07/01/25 15:51 Foot Right Aerobic Culture - Final 07/01/25 15:51 Foot Right Gram Stain - Final
[2025-07-05] MEDS: ONDANSETRON INJ 4 MG/2 ML VIAL IV PUSH (10:16)
--- NOTE | 2025-07-05 13:40 | P.DS_ITS ---
DS: Admitting Diagnosis Discharge Date 07/05/25 Admitting Diagnosis Chest pain DS: Discharge Diagnosis Discharge Diagnosis (1) Abdominal pain: Code(s): R10.9 - Unspecified abdominal pain Status: Acute (2) Chest pain: Code(s): R07.9 - Chest pain, unspecified Status: Acute (3) Diabetic ketoacidosis: Code(s): E11.10 - Type 2 diabetes mellitus with ketoacidosis without coma Status: Acute (4) Diabetes mellitus: Code(s): E11.9 - Type 2 diabetes mellitus without complications Status: Chronic (5) End-stage renal disease (ESRD): Code(s): N18.6 - End stage renal disease Status: Acute (6) Chronic heel ulcer: Qualifiers: Laterality: right Non-pressure ulcer stage: unspecified non-pressure ulcer stage Qualified Code(s): L97.419 - Non-pressure chronic ulcer of right heel and midfoot with unspecified severity Code(s): L97.409 - Non-pressure chronic ulcer of unspecified heel and midfoot with unspecified severity Status: Chronic (7) Anemia: Code(s): D64.9 - Anemia, unspecified Status: Chronic (8) Obstructive sleep apnea: Code(s): G47.33 - Obstructive sleep apnea (adult) (pediatric) Status: Acute (9) Hypertension: Code(s): I10 - Essential (primary) hypertension Status: Chronic (10) CHF (congestive heart failure): Qualifiers: Heart failure chronicity: acute on chronic Heart failure type: unspecified Qualified Code(s): I50.9 - Heart failure, unspecified Code(s): I50.9 - Heart failure, unspecified Status: Chronic (11) Chronic 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: Code(s): 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 Please see H&P for details. Hospital Course: Patient presents with chest pain occurring at rest lasting about 30 seconds. Troponin negative x2 (5hrs apart). EKG showing NSR, LAE, poor R wave progression and inferior ST-T changes. Repeat EKG showing no change. Atypical chest pain. Negative workup but still at high risk for coronary disease. Consider musculoskeletal. CT chest did not show any obvious fracture to right humerus, clavicle. Shoulder pain is musculoskeletal felt related to her inactivity. We resumed Coreg. ASA and Lipitor added. Echo from March reviewed. Lipid panel noted. Plan for outpatient ischemic evaluation. Encouraged patient to be out of bed. PT/OT ordered to help with transfers. Patient found to have glucose of 757. Bicarb low at 15 with normal AG. BHOB 0.96. No n/v. VBG 7.23//42 on RA. [place] she has early DKA related to poor compliance. Insulin gtt and IV fluids started per DKA protocol. Adult Services Librarian consulted and appreciate their input. AG remained closed. Still with metabolic acidosis but felt related to ESRD. Insulin regiment stopped. DKA resolved. Patient with longstanding, uncontrolled DM as seen with end stage organ disease and vision loss. Last 2 years, A1c was 5.9-7.0 related to tighter control at the facility. A1c >14 multiple times this year since being at home and no longer is tightly controlled. Patient declined Diab education. Glucose was monitored with AccuCheks covering with sliding scale. Hypoglycemia protocol was available as needed. We continued Lantus and added meal time insulin. Patient with ESRD x 2 years. -- schedule. Nephrology consulted and appreciate their input. Continue HD per Nephrology recommendation. Patient with chronic right heel ulcer that clinically did not appear infected. Rt Foot xray showing no acute bone or joint abnormalities. diesel maintenance electrician also did not feel this was infected but Silver gel started. BCx NGTD. UCx negative. Wound gram stain noted. WCx no growth. Started on Zosyn and Vancomycin. Wound care fol lowing. We continued daily dressing changes. Chart review showing workup in the past consistent with anemia of chronic disease felt related to her ESRD. Hgb 11.5 but normally runs 9-10 earlier this year. Hgb stable and actually up to 12. Patient has not had a formal polysomnogram but had positive ApneaLink August 2023. Will need to arrange as outpatient. Morbid obesity noted with BMI 42 which is complicating her other medical conditions. Patient overall did well and was able to be discharged on 07/05. Discharge instructions discussed and all questions answered. Status at Discharge Cognitive/behavioral status at discharge: stable Time Spent with Patient Time attestation: Total time spent providing and/or coordinating discharge services: 35 minutes Time spent: Greater than 30 minutes Exam Narrative: AF 97.6 116/76 84 16 100% ra Gen - NARD Chest - CTA bilaterally. Left upper chest tunneled dialysis catheter to left IJ CV - RRR. S1-S2. Abd - abdomen was soft. Obese. +BS. Ext - left AKA. Right LE in heel protector. Right sher wounds almost healed. Right heel with firm callus and central smaller ulcer. Psych - normal mood and affect. Skin - warm and dry. DS: Data Data Completed and Pending Labs on day of discharge: Labs from last 24 hours 07/05/25 07/05/25 07/05/25 12:10 08:01 04:23 WBC 12.0 H RBC 4.42 Hgb 12.7 Hct 42.4 MCV 95.9 MCH 28.7 MCHC 30.0 L RDW 15.8 H Plt Count 393 H MPV 9.6 Sodium 136 L Potassium 4.2 Chloride 101 Carbon Dioxide 26 Anion Gap 9 BUN 17 D Creatinine 3.80 H Estim Creat Clear Calc 26 Estimated GFR 14 L Glucose 152 H POC Capillary Glucose 90 135 H Calcium 8.2 L Phosphorus 4.7 H Albumin 3.3 L 07/04/25 07/04/25 20:53 17:08 WBC RBC Hgb Hct MCV MCH MCHC RDW Plt Count MPV Sodium Potassium Chloride Carbon Dioxide Anion Gap BUN Creatinine Estim Creat Clear Calc Estimated GFR Glucose POC Capillary Glucose 165 H 103 Calcium Phosphorus Albumin Preliminary micro results at discharge 07/01/25 03:26 Blood Culture - Preliminary Blood 07/01/25 03:26 Blood Culture - Preliminary Blood Discharge Plan Discharge Attending physician on discharge: Juan Ortega Consulting providers: Vivian Gomez; Lars Millan Discharging Clinician: Juan Ortega Anticipated Discharge Date/Time: 07/05/25 13:53 Patient Disposition: Home Activity: as tolerated Diet: diabetic and renal Wound Care Instructions: follow printed instructions Discharge Instructions: Wound care instructions: Daily wash right heel with soap and water, apply Silver gel to heel wound, cover with plain foam, ABD pad and wrap with kerlex. Follow in the wound center has changed. We will cancel appointment on FridayJuly 15 and will reschedule for Tuesday July 29, 2025 at 10:30AM. Stop at Registration first as it has been 90 days since last registration. Call wound center if appointment does not work. [phone] Please check glucose before meals and before bed. Record and bring into your doctor for review. Check blood pressure 1 to 2 times a day. Record and bring into your doctor for review. Call your doctor if your blood pressure is greater than 180/110. Please complete your antibiotic course even if you are starting to feel well. You are going home on: - Doxycycline 100mg every 12 hours for 5 more doses - Levofloxacin 500mg once on the morning of Jul 07 Take precautions to avoid falls. Contact your doctor or call 911 and come to the Emergency Room if you have any type of trauma, lightheadedness with standing or other worrisome symptoms. Avoid NSAIDs (ibuprofen, naproxen, Aleve). Tylenol is safe to take. Follow-up with your primary care provider in 1-2 weeks. Please call for appointment. Please speak with your doctor about arranging for an outpatient sleep study Follow-up with Cardiology in 1-2 weeks. Please call for an appointment. Thank you for using [facility] for your health care needs. Patient Instructions: Antibiotic Form, Apixaban (By mouth) Patient Language: Ghanaian Stand Alone Forms: General Discharge Information Follow-up/Referrals: Darnell,TOÑITO Luong [Primary Care Provider, Unknown] - Call for Appointment Graeme Simmons MD [Physician, Cardiology] - Call for Appointment Discharge Medications: [place] Creme Cream 1 applic topical DAILY Qty: 113 0RF Rx Instructions: Apply to right leg intact skin (do not use on open wounds) insulin aspart U-100 100 unit/mL (3 mL) insulin pen 10 unit subcut BIDWM Qty: 15 1RF Rx Instructions: Before breakfast and before dinner. Hold if meal is skipped. insulin aspart U-100 100 unit/mL (3 mL) insulin pen 7 unit subcut .noon Qty: 15 1RF Rx Instructions: Hold if not eating lunch aspirin [Children's Aspirin] 81 mg Tablet,Chewable 81 mg PO DAILY@0800 Qty: 30 1RF atorvastatin 20 mg Tablet 20 mg PO DAILY Qty: 30 1RF doxycycline hyclate 100 mg Tablet 100 mg PO Q12HR Qty: 5 0RF levofloxacin 500 mg tablet 500 mg PO ONCE Qty: 1 0RF Rx Instructions: Take one dose of Levofloxacin on Jul 07 to complete abx course Continued carvedilol 12.5 mg tablet 25 mg PO Q12H amlodipine 10 mg tablet 10 mg PO DAILY lisinopril 20 mg Tablet 20 mg PO QAM 30 Days Qty: 30 0RF furosemide 40 mg Tablet 40 mg PO DAILY (DME) blood-glucose meter [[employer]Touch Verio Flex meter] [facility] Qty: 1 0RF Rx Instructions: May substitute to in-stock meter and/or covered by insurance. Use As Directed (DME) OneTouch Verio test strips Strip Qty: 1 0RF Rx Instructions: May substitute to in-stock and/or covered by insurance strips. Use As Directed (DME) pen needle, diabetic 32 gauge x 5/32 Needle Qty: 1,200 0RF Rx Instructions: As Directed (DME) lancets [YOGITECHuch Delica Plus Lancet] 30 gauge [facility] Qty: 1 0RF Rx Instructions: May substitute to in-stock and/or covered by insurance lancets. Use As Directed insulin aspart U-100 100 unit/mL (3 mL) insulin pen 1 sliding scale dose subcut USEASDIRECTD Qty: 15 0RF Rx Instructions: Rx Instructions: <70-Follow Hypoglycemic protocol 70-200: No addition Insulin 201-250: 3 U 251-300: 4 U 301-350: 5 U 351-400: 6 U >400: Call MD [place] 5 mg tablet 5 mg PO BID Changed insulin glargine [Lantus Solostar U-100 Insulin] 100 unit/mL (3 mL) insulin pen 40 unit subcut QAM Qty: 15 0RF Date of admission: 07/01/25 06:46 Primary Care Provider: JohnCherise Admitting Provider: Nadia Coreas Attending physician on admission: Nadia Coreas Condition: Stable Hospitalist MIPS Heart Failure (Exclusion) Patient has history of Heart Transplant or Left Ventricular Assistive Device?: No IF YES, STOP HERE Heart Failure (Qualifier) Patient has current or prior documentation of LVEF less than or equal to 40%, or mod/servere depressed LVSF?: No IF NO, STOP HERE
--- NOTE | 2025-07-05 13:41 | P.CDI_ITS ---
CDI Query Clarification Request 1)Please clarify the diagnosis for this patients acute hyperglycemic state? * Diabetic ketoacidosis (DKA) * Hyperosmolar hyperglycemic state/syndrome (HHS) * Both DKA and HHS present concurrently * Other, please specify * Unable to determine 2)Patient with a BMI of 41.8 please provide a diagnosis to accompany this finding: * Overweight * Obesity * Morbid Obesity * Other/Unknown ER documented: Clinical Impression: Hyperosmolar hyperglycemic state (HHS), Diabetic foot ulcer, End-stage renal disease (ESRD) Hospitalist documented: (3) Diabetic ketoacidosis: Code(s): E11.10 - Type 2 diabetes mellitus with ketoacidosis without coma Status: Acute Assessment and Plan: Patient presents with chest pain and found to have glucose of 757. Bicarb low at 15 with normal AG. BHOB 0.96. No n/v. VBG 7.23//42 on RA. [place] she has early DKA related to poor compliance Insulin gtt and IV fluids started per DKA protocol. Painting Worker consulted and appreciate their input. AG remained closed. Still with metabolic acidosis but felt related to ESRD. Insulin regiment stopped. DKA resolved. Add oral bicarb for her persistent acidosis Nephrology: 2) Hyperosmolar hyperglycemic state (HHS): Code(s): E11.00 - Type 2 diabetes mellitus with hyperosmolarity without nonketotic hyperglycemic-hyperosmolar coma (N[facility]) Status: Acute Assessment and Plan: * noted to have blood sugars > 700 with normal anion gap * now sugars still running between 70 and 327. * see #8
[2025-07-05] MEDS: DOXYCYCLINE HYCLATE 100 MG TABLET PO (20:31)
--- NOTE | 2025-07-11 11:12 | PC.NURSE ---
Dr. Ortega reviewed patients cx results. Ordered Flagyl 500 mg every 8 hours for 10 days. Left message for pt regarding picking up script. Called script into pt. Preferred pharmacy.
--- NOTE | 2025-07-19 15:31 | PCCDE ---
Aleyda= sister :[phone] who assists pt with her meds - called with question due to having trouble with insulin pen needle and insulin dispensing. - Per DC orders: insulin aspart U-100 100 unit/mL (3 mL) insulin pen 10 unit subcut BIDWM Qty: 15 1RF Rx Instructions: Before breakfast and before dinner. Hold if meal is skipped. insulin aspart U-100 100 unit/mL (3 mL) insulin pen 7 unit subcut .noon Qty: 15 1RF Rx Instructions: Hold if not eating lunch Upon conversation: Aleyda states writing/prescription for bolus insulin for 7 U w/L only.(no B/D dosing) - - Aleyda changed needle -> problem resolved - reviewed priming/testing insulin pen - Reviewed DC order in computer and enc'd if pt pre-lunch and HS glucose high, to review DC orders and reach out to PCP for updated insulin recommendations - Denies any other questions. - They have PCP appt early Aug. - call prn (has my number)
== END 2025-07-05 23:08 | disposition home or self-care (01) | DRG 637 ==
LOC: ANHED 06:50 → ANHICU 09:08 → ANH2MED 07-05 13:57 → ANHICU 07-06 13:17 → ANHIMU 07-06 13:17
PROVIDERS: Internal Medicine; Internal Medicine Nephrology; Admitting Provider Internal Medicine; Emergency Provider Emergency Medicine; PCP Physician Assistant; Visit Provider Internal Medicine
DX: E11.10 Type 2 diabetes mellitus with ketoacidosis without coma (principal); N18.6 End stage renal disease; L97.419 Non-pressure chronic ulcer of right heel and midfoot with unspecified severity; I13.2 Hypertensive heart and chronic kidney disease with heart failure and with stage 5 chronic kidney disease, or end stage renal disease; I50.32 Chronic diastolic (congestive) heart failure; Z68.41 Body mass index [BMI] 40.0-44.9, adult; E11.00 Type 2 diabetes mellitus with hyperosmolarity without nonketotic hyperglycemic-hyperosmolar coma (NKHHC); E11.621 Type 2 diabetes mellitus with foot ulcer; E11.22 Type 2 diabetes mellitus with diabetic chronic kidney disease; Z20.822 Contact with and (suspected) exposure to COVID-19; R07.89 Other chest pain; G47.33 Obstructive sleep apnea (adult) (pediatric); D63.1 Anemia in chronic kidney disease; E66.01 Morbid (severe) obesity due to excess calories; E11.42 Type 2 diabetes mellitus with diabetic polyneuropathy; H40.9 Unspecified glaucoma; Z91.199 Patient's noncompliance with other medical treatment and regimen due to unspecified reason; Z79.01 Long term (current) use of 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; Z89.612 Acquired absence of left leg above knee; Z99.2 Dependence on renal dialysis
CPT/HCPCS: 36415; 71045; 71250; 73620; 80048; 80053; 80061; 80069; 80076; 80202; 80307; 81001; 82077; 82565; 82803; 82948; 83036; 83605; 83690; 83735; 84100; 84484; 84703; 85025; 85027; 85610; 85730; 86706; 87040; 87070; 87075; 87086; 87205; 87340; 87637; 87641; 93005; 96361; 96374; 96375; 99285; A9270; G0257; J0360; J1200; J1644; J1815; J1885; J2270; J2405; J2543; J3373; J3480; J7030; J7050; J7120; Q5105

== ENCOUNTER 2025-08-08 10:16 | Outpatient (RCR) | payer MEDICARE, MEDICAID, SELFPAY ==
--- NOTE | 2025-07-29 11:02 | PCWOUND ---
WOCN NOTE patient did not show up for appointment or call.
== END 2025-10-18 10:26 | disposition home or self-care (01) ==
LOC: ANHWOC 10:16
PROVIDERS: PCP Physician Assistant; Visit Provider Physician Assistant
DX: E11.621 Type 2 diabetes mellitus with foot ulcer (principal); Z48.00 Encounter for change or removal of nonsurgical wound dressing
CPT/HCPCS: 99214; G0463

== ENCOUNTER 2025-10-28 10:43 | Emergency (ER) | payer MEDICARE, MEDICAID, SELFPAY ==
--- OUTSIDE RECORDS SUMMARY | 2025-01-26 14:00 | XMS_ITS ---
Author Organization [facility] Address [address] [place] [address] Phone [phone] Care Team Providers Care Laboratory Operations Coordinator Name Role Phone Yessi Shannon Primary Care Provider REASON FOR VISIT New Patient Psych Eval, follow up hospital per CI Social History Sex Observation Social History Observation Description Sex Observation Female Sexual Orientation Social History Observation Description Sexual Orientation Straight or heterose xual Encounters Date Time Type Facility Location Provider Diagnosis 01/26/2025 02:00 PM Office Visit [address] [place] [address] Yessi Shannon Plan Of Treatment No Information Progress Notes * Gay MATADOB:1990 (35 yo F)Acc No.[id number]:01/26/2025 UNLOCKED PROGRESS NOTE Patient: Gay FARRIS Provider: Akin Shannon, MSN, REGIONAL TRAINER, ELECTRICAL SIGN WIRER-C :1990 A ge:34 Y S ex:Female Date:01/26/2025 [address] [id number] Subjective: * Chief Complaints: * 1 . New Patient Psych Eval, follow up hospital per CI. * Screening: * * Medical History: Objective: * Vitals: Assessment: Plan: * Treatment: * * Electronic signature of Jeremías Shannon , [id number] on 10/28/2025 at 10:46 AM INSTRUCTIONAL TECHNOLOGY DIRECTOR Sign off status: Pending * Provider: Akin Shannon, MSN, REGIONAL TRAINER, ELECTRICAL SIGN WIRER-C Date: 0 01/26/2025 Generated for Roldan knight/Teresa/Mackenzie on: 1 12/29/2024 10:46 AM INSTRUCTIONAL TECHNOLOGY DIRECTOR
[2025-10-28] VITALS (8 sets, daily range): BP systolic 125–167; BP diastolic 84–99; PULSE 85–88; RESP 15–18; TEMP 36.6–36.7; O2SAT 97–100
--- NOTE | ~2025-10-28 | XR_ITS ---
Examination: XR chest 2V Clinical History: cp, sob Comparison: CT chest 07/01/2025 Technique: PA and Lateral Findings: Left permacath. Heart size upper limit of normal. Chronic interstitial changes, left side more severe. No acute bony abnormality. IMPRESSION: 1. No acute cardiopulmonary findings. Reviewed, dictated and finalized at location [facility]. [facility]
--- OUTSIDE RECORDS SUMMARY | 2025-10-28 10:46 | XMS_ITS | Clinical Summary ---
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 [...] Date Shortness of breath 04/15/2023 04/15/20 23 Surgical History Surgery Date Site/Laterality Comments ABOVE KNEE LEG AMPUTATION 12/04/2022 - 12/31/2022 Left SHOULDER SURGERY 08/03/2024 - 09/02/2024 Right Medical History Medical History Date Comments Hypertension Diabetes mellitus CHF (congestive heart failure) (HCC) CKD (chronic kidney disease) Hx of AKA (above knee amputation) (HCC) Left Diabetic retinopathy (HCC) Family History Medical History Relation Name Comments Anesthesia problems Neg Hx Social History Tobacco Use Types Packs/Day Years Used Date Smoking Tobacco: Never Smokeless Tobacco: Never Tobacco Cessation:Counseling Given: Not Answered Social Connection and Isolation Panel Answer Date Recorded In a typical week, how many times do you talk on the phone with family, friends, or neighbors? Never 04/16/2023 How often do you get together with friends or re latives? Never 04/16/2023 How often do you attend restorationism or zoroastrian serv ices? Never 04/16/2023 Do you belong to any clubs o r organizations such as restorationism groups, unions, fraternal or athletic groups, or [...] on file Legal Sex Female 8:53 PM METAL REFINER Gender Identity Female 12/23/2024 9:35 AM METAL REFINER Sexual Orientation Straight 12/23/2024 9: 35 AM METAL REFINER Last Filed Vital Signs Vital Sign Reading [...] 170.2 cm (5' 7) 12/23/2024 9:15 AM METAL REFINER Body Mass Index 38.84 12/23/2024 9:15 AM METAL REFINER Plan of Treatment Health Maintenance Due Date [...] 04/25/2008, 08/13/2007 Medical Devices Implanted Type Area Rare/Endangered Species Specialist Device Identifier Shelf Expiration Date Model / Serial / Lot [employer] Lens Iol [id number] [employer]on [employer] [id number] - [id number] - [id number] Implanted:Qty: 1 on 01/10/2025 by Bita Vega MD at [facility] Lens Right: Eye [employer] 06/14/2026 [id number] / [id number] Procedures Procedure Name Priority Date/Time Associated Diagnosis Comments EGFR Routine 09/23/2023 5:39 PM METAL REFINER ALBUMIN CREATININE RATIO, URINE Routine 04/17/2023 4:23 PM CDT LIPID PANEL Routine 04/17/2023 1:03 PM CDT HEMOGLOBIN A1C Routine 04/16/2023 7:06 AM CDT from Last 3 Months or Most Recently Relevant to Health Maintenance Results * eGFR (09/23/2023 5:39 PM METAL REFINER) eGFR 22 mL/min/1. 73 m2 [facility] [...] last reviewed 2021. Blood 09/23/2023 5:39 PM METAL REFINER 09/23/2023 8:31 PM METAL REFINER us Tyrel Simmons MD LAB BLOOD ORDERABLES Final Result [facility] [address] Department [place] [address] * (ABNORMAL) Albumin Creatinine Ratio, [...] MD LAB URINE ORDERABLES Final Re sult [facility] [address] [facility] Department [place] [address] * (ABNORMAL) Lipid panel (04/17/2023 1:03 PM [...] ORDERABLES Final Re sult Performing Organization Address [facility] Co de Phone Number [facility] [address] [facility] [place] [address] * (ABNORMAL) Hemoglobin A1c (04/16/2023 7:06 AM CDT) Hgb A1C 6.5(H) 4.0 - 5.6 % [facility] Estimated Average Glucose 140 mg/dL [facility] Comment: The ADA recommends reporting an estimated Average Glucose (eAG) with all Hemoglobin A1c results using the equation derived from a study of 507 normal and diabetic adults. Minority populations were underrepresented and children were not included. (Diabetes Care 31:1921-8106, 2008). The eAG is not equivalent to a fasting glucose. Blood 04/16/2023 7:06 AM CDT 04/16/2023 7:45 AM CDT Amilcar Estrada MD LAB BLOOD ORDERABLES Final Re sult Performing Organization Address [facility] de Phone Number [facility] [address] [place] [address] from Last 3 Months or Most Recently Relevant to Health Maintenance Insurance MEDICARE IDPA MEDICARE Advance Directives For more information, please contact: [phone] Documents on File Type Date Recorded Patient Supervisor In Charge Expl anation ADVANCE DIRECTIVE 04/23/2023 12:11 PM Breana r of Refrigeration Tech-Medical ADVANCE DIRECTIVE 04/23/2023 12:11 PM POLS T [...] Relationship Healthcare Agent Relationship Communication Kianna Nunez [facility] Care Agent [email or web address] Suellenjim Resendiz [facility] Care Agent [email or web address] Care Teams Pharmacist Aide Relationship Specialty Start Date End Date Cherise Patrick PA [address] [place] [address] PCP - General Physician Interactive Project Manager 02/20/23
--- OUTSIDE RECORDS SUMMARY | 2025-10-28 10:46 | XMS_ITS | Clinical Summary ---
Author Organization [facility] Address [address] [place] [address] Care Team Providers Care Brake Engineer Name Role Phone None, Provider MD Primary [...] Morbid obesity 07/31/2022 Acute hypoxemic respiratory failure 07/29/2022 Social History Tobacco Use Types Packs/Day [...] series) 10/25/2008 06/24/2008, 04/25/2008 Hepatitis C 2010 Cervical Cancer Screening Pap with HPV Testing (Age 30 to 64) Every 5 Years 2022 COVID-19 Vaccine ( season) 2025 Influenza Adult (#1) 2025 Cervical Cancer Screening Pap Smear (Age 30 to 64) Every 3 Years 12/05/2025 12/05/2022 Cervical Cancer Screening with HPV 12/05/2025 DTaP, Tdap and Td Vaccines (7 - Td or Tdap) 12/02/2032 12/02/2022, 08/14/2006, 05/08/1994, Additional history exists Hepatitis B Vaccines Completed 03/06/1994, 07/27/1993, 06/01/1993 Meningococcal Vaccine Aged Out 04/25/2008 No marnie shavon eligible based on patient's age to complete this topic Hepatitis A Vaccines Aged Out No long er eligible based on patient's age to complete [...] 03/03/23 +MRSA Right leg 07/30/2022 03/03/2023 Insurance [facility] MEDICAID C/O PROVIDER SERVICES TOÑITO RAMIREZ [id number] [place] MEDICAID Advance Directives * Full Code (Latest Code Status on File) Date Activated Date Inactivated Comments 07/31/2022 11:49 PM 08/07/2022 11:08 PM * Full Code Date Activated Date Inactivated Comments 07/29/2022 9:44 PM 07/31/2022 11:49 PM Care Teams Brake Engineer Relationship Specialty Start Date End Date None, Provider, PCP - General 07/29/22
--- OUTSIDE RECORDS SUMMARY | 2025-10-28 10:46 | XMS_ITS | Data Portability ---
Author Organization [place] - [facility] OFFICE Address [address] [place] [address] Assessment Encounter Date Assessment Date Assessment LastModified by Organization Details LastModified Time 03/18/2023 03/18/2023 Patient Examined by TREVOR Savage, Also Documentation reviewed and approved by supervising physician bang Not available 03/18/2023 16:51:36 Plan of Treatment Reminders Order Date Submit Date Provider Name Organization Details Last Modified By Last Modified Time Details Appointments None recor ded. Lab None recor ded. Referral None recor ded. Procedures None recor ded. Surgeries None recor ded. Imaging elect nusratar radha am 2022 17:02: 07 023 Casper Delgado MD [facility] Radiology-[address], [address], [place] 16:58:23 MedicationOrde rs potas sium chlor brodie ER 20 mEq table t,ext ended relea se 2022 17:00: 03 [facility] [id number] [facility] [place], [address], Ph [phone] Not Available Not available 17:02:16 Take 1 tablet every day by oral route. VaccineOrders None recor ded. Patient TargetsNo targets recorded. Patient Instructions Encounter Date Encounter Id Patient Instructions Last Modified By Organization Details Last Modified Time 03/18/2023 [id number] type 2 diabetes: care instructions CARLEEN PAL Not available 03/18/2023 17:02:09 Low cholesterol diet advised Low sodium diet advised. bang Not available 03/18/2023 17:02:04 Reason for Referral None Reported. Results Created Date Observation Date Name Description Value Unit Range Abnormal Flag Specimen Type Note LastModifiedBy Organization Detail LastModifiedTime 03/18/2023 03/18/2023 electrocardiogram No observation recorded. Ying Silva Not Available 03/24/2023 13:58:17 Result Notes None recorded. Problems Name Problem SNOMED Code Status Onset Date Resolution Date Notes Provider Name and Address Organization Details Recorded Time Uncontro lled type 2 diabetes mellitus 426392949 Active 2022 [place] null, [place] - [facility] 3 15:53:39 Hyperten sive disorder 60067510 Active 2022 [place] null, [place] - [facility] 3 15:53:37 Edema 968554475 Active 2022 Mike Moses null, [place] - [facility] 3 11:51:[facility] [id number] 06 Completed 202203/05/2023 Mike [place] null, [place] - [facility] 3 11:55:46 Amputate d left lower limb below knee 637837435 Active 2022 Tim Mesto null, [place] - [facility] 3 15:56:28 Dyspnea on exertion 32646292 Active 2022 Tim [place], [place] - [facility] 3 13:46:03 Edema of lower extremit y 780015111 Active 2022 Tim [place], [place] - [facility] 3 13:46:10 Problem Notes None recorded. Procedures Surgical History Date Name Laterality Status Provider Name and Address Organization Details Recorded Time 01/31/20 amputation of left lower limb completed Mike Moses [place] - [facility] 03/05/2023 13:07:39 Imaging Results Imaging Date Name Status LastModifiedBy Organization Detail LastModifiedTime 03/18/2023 electrocardiogram completed Ying Silva Not Av ailable 03/24/2023 13:58:17 Procedure Notes None recorded. Medical Equipment None Reported. Allergies No known drug allergies Medications Name Authored On Sig Start Date Stop Date Status Note Indication Fill Status Repeat Number Dispense Quantity LastModified by Organization Details LastModified Time OneTo uch Verio Refle ct Meter 3 12:11:45 active Not Available Not availab le 0 Not Available Srinivaseleno Moses [place] - [facility] 03/05/2023 12:11:45 brimo nidin e 0.2 % eye drops 3 14:47:11 INST ILL 1 DROP INTO LEFT EYE THRE E TIME S DHARMESH Y active Not Available Not availab le 0 Not Available Not Available [facility] 03/18/2023 14:47:11 docus ate sodiu m 100 mg capsu le 3 14:47:11 TAKE 1 CAPS ULE BY MOUT H TWIC E DHARMESH Y active Not Available Not availab le 0 Not Available Not Available [facility] 03/18/2023 14:47:11 dorzo lamid e 2 % eye drops 3 14:47:11 INST ILL 1 DROP IN LEFT EYE THRE E TIME S DHARMESH Y active Not Available Not availab le 0 Not Available Not Available [facility] 03/18/2023 14:47:11 dorzo lamid e 22.3 mg-ti molol 6.8 mg/mL eye drops 3 14:47:11 INST ILL 1 DROP INTO LEFT EYE THRE E TIME S DHARMESH Y active Not Available Not availab le 0 Not Available Not Available [facility] 03/18/2023 14:47:11 doxyc yclin e monoh ydrat e 100 mg capsu le 3 14:47:11 TAKE 1 CAPS ULE BY MOUT H TWIC E DHARMESH Y FOR 10 DAYS active Not Available Not availab le 0 Not Available Not Available [facility] 03/18/2023 14:47:11 fluox etine 20 mg capsu le 3 14:47:11 TAKE 1 CAPS ULE BY MOUT H ONCE DHARMESH Y active Not Available Not availab le 0 Not Available Not Available [facility] 03/18/2023 14:47:11 genta micin 0.1 % topic al cream 3 14:47:11 APPL Y TO RIGH T LEG WOUN DS ONLY DHARMESH Y AND NEED ED active Not Available Not availab le 0 Not Available [facility] 03/18/2023 14:47:11 hydro codon e 5 mg-ac etami nophe n 325 mg table t 3 14:47:11 TAKE 1 TABL ET BY MOUT H EVER Y 4 HOUR S NEED ED FOR PAIN (SCA LE 7-10 ) active Not Available Not availab le 0 Not Available Not [facility] 03/18/2023 14:47:11 insul in lispr o (U-10 0) 100 unit/ mL subcu taneo us solut ion [address] 14:47:[address] 5 UNIT S SUBC UTAN EOUS LY WITH MEAL S active Not Available Not availab le 0 Not Available Not [facility] 03/18/2023 14:47:11 ketoc onazo le 2 % topic al cream 3 14:47:11 APPL Y TOPI CALL Y DHARMESH Y active Not Available Not availab le 0 Not Available Not Available [facility] 03/18/2023 14:47:11 Lantu s U-100 Insul in 100 unit/ mL subcu taneo us solut ion 3 14:47:[address] 10 UNIT S SUBC UTAN EOUS LY AT BEDT TELLY active Not Available Not availab le 0 Not Available Not Available [facility] 03/18/2023 14:47:11 levof loxac in 750 mg table t 3 14:47:11 TAKE 1 TABL ET BY MOUT H ONCE DHARMESH Y FOR 10 DAYS active Not Available Not availab le 0 Not Available Not [facility] 03/18/2023 14:47:11 krystal amide 2 mg capsu le 3 14:47:11 TAKE 1 CAPS ULE BY MOUT H 4 TIME S DHARMESH Y NEED ED DIAR EDIN active Not Available Not availab le 0 Not Available Not [facility] 03/18/2023 14:47:11 metfo rmin 500 mg table t 3 14:47:11 active Not Available Not availab le 0 Not Available Not [facility] 03/18/2023 14:47:11 nysta tin 100,0 00 unit/ gram topic al powde r 3 14:47:11 APPL Y TOPI CALL Y THRE E TIME S DHARMESH Y active Not Available Not availab le 0 Not Available Not Available [facility] 03/18/2023 14:47:11 OneTo uch Verio Refle ct Meter 3 14:47:11 active Not Available Not availab le 0 Not Available Not Available [facility] 03/18/2023 14:47:11 Thera -M 9 mg iron- 400 mcg table t 3 14:47:11 TAKE 1 TABL ET BY MOUT H ONCE DHARMESH Y active Not Available Not availab le 0 Not Available Not Available [facility] 03/18/2023 14:47:11 timol ol jo ann te 0.5 % eye drops 3 14:47:11 INST ILL 1 DROP INTO LEFT EYE THRE E TIME S DHARMESH Y active Not Available Not availab le 0 Not Available Not Available [facility] 03/18/2023 14:47:11 amoxi cilli n 875 mg-po tassi um clavu lanat e 125 mg table t 3 14:47:11 03/18 aborted Not Available Not availab le 0 Not Available [facility] 03/18/2023 16:06:27 FeroS ul 325 mg (65 mg iron) table t 3 14:47:11 TAKE 1 TABL ET BY MOUT H ONCE DHARMESH Y BEFO RE MEAL (S) FOR 30 DAYS 03/18 aborted Not Available Not availab le 0 Not Available [facility] 03/18/2023 16:06:53 david us sulfa te 325 mg (65 mg iron) table t,del ayed relea se 3 14:47:11 TAKE 1 TABL ET BY MOUT H ONCE DHARMESH Y 03/18 aborted Not Available Not availab le 0 Not Available [facility] 03/18/2023 16:06:55 furos emide 3 16:07:40 10mg once dharmesh y active Not Available Not availab le 0 Not Available [facility] 03/18/2023 16:07:40 gabap entin 100 mg capsu le 3 14:47:11 TAKE 1 CAPS ULE BY MOUT H THRE E TIME S DHARMESH Y 03/18 aborted Not Available Not availab le 0 Not Available [facility] 03/18/2023 16:07:55 venla faxin e ER 37.5 mg capsu le,ex tende d relea se 24 hr 3 14:47:11 TAKE 1 CAPS ULE BY MOUT H ONCE DHARMESH Y 03/18 aborted Not Available Not availab le 0 Not Available [facility] 03/18/2023 16:08:13 OneTo uch Verio test strip s 3 12:12:02 03/18 aborted Not Available Not availab le 0 Not Available [facility] 03/18/2023 16:08:17 potas sium chlor brodie ER 10 mEq table t,ext ended relea se 3 14:47:11 TAKE 1 TABL ET BY MOUT H ONCE DHARMESH Y 03/18 aborted Not Available Not availab le 0 Not Available [facility] 03/18/2023 16:08:21 potas sium chlor brodie ER 20 mEq table t,ext ended relea se 3 17:00:03 Take 1 tabl et ever y day by oral rout e. complet ed Edema of lower extremity Not availab le 1 Not Available Not Available [facility] 03/18/2023 17:02:16 furos emide 20 mg table t 3 08:08:43 TAKE 1 TABL ET BY MOUT H ONCE DHARMESH Y active Not Available Not availab le 0 Not Available [facility] 03/30/2023 08:08:43 losar hoyos 25 mg table t 3 08:08:43 TAKE 1 TABL ET BY MOUT H ONCE DHARMESH Y active Not Available Not availab le 0 Not Available [facility] 03/30/2023 08:08:43 mupir ocin 2 % topic al ointm ent 3 08:08:43 APPL Y OINT MENT TOPI CALL Y ONCE DHARMESH Y active Not Available Not availab le 0 Not Available Not Available [facility] 03/30/2023 08:08:43 OneTo uch Delic a Plus Ye t 33 gauge 3 08:08:43 USE 1 TO [facility] K GLUC OSE TWIC E DHARMESH Y active Not Available Not availab le 0 Not Available Not Available [facility] 03/30/2023 08:08:43 OneTo uch Verio test strip s 3 08:08:43 USE 1 STRI P TO [facility] K GLUC OSE TWIC E DHARMESH Y active Not Available Not availab le 0 Not Available Not Available [facility] 03/30/2023 08:08:43 potas sium chlor brodie ER 20 mEq table t,ext ended relea se(pa rt/cr yst) 3 08:08:43 TAKE 1 BY MOUT H ONCE DHARMESH Y active Not Available Not availab le 0 Not Available Not Available [facility] 03/30/2023 08:08:43 [place] 0.75 mg/0. 5 mL subcu taneo us pen injec tor 3 08:08:43 active Not Available Not availab le 0 Not Available Not Available [facility] 03/30/2023 08:08:43 amlod ipine 10 mg table t 3 08:20:32 TAKE 1 TABL ET BY MOUT H ONCE DHARMESH Y IN THE MORN ING FOR 30 DAYS active Not Available Not availab le 0 Not Available Not Available [facility] 04/06/2023 08:20:32 carve dilol 12.5 mg table t 3 06:13:11 TAKE 1 TABL ET BY MOUT H TWIC E DHARMESH Y WITH MEAL S active Not Available Not availab le 0 Not Available Not Available [facility] 04/22/2023 06:13:11 furos emide 40 mg table t 3 06:13:11 TAKE 1 TABL ET BY MOUT H ONCE DHARMESH Y FOR 30 DAYS active Not Available Not availab le 0 Not Available Not Available [facility] 04/22/2023 06:13:11 [place] 1.5 mg/0. 5 mL subcu taneo us pen injec tor 06:13:11 active Not Available Not availab le 0 Not Available Not Available [facility] 04/22/2023 06:13:11 Vitals Date Recorded Body weight Body mass index (BMI) Body height Heart rate Oxygen saturation Systolic And Diastolic Provider Name and Address Organization Details Last Updated DateTime 3 534495. 34 g 50.6 kg/m2 170.18 cm 71 /min 87 % 150/100 mm[Hg] [facility] 16:35:36 Social History Question Answer Notes LastModified by Organizat ion Details LastModified Time Tobacco Smoking Status [facility] 03/05/2023 13:06:35 What Is Your Level Of Alcohol Consumption? Occasional [facility] 03/05/2023 13:06:35 Have you been to an area known to be high risk for COVID-19? No [facility] 03/05/2023 13:06:09 In the 14 days before symptom onset, have you had close contact with a laboratory-confir med COVID-19 while that case was ill? No [facility] 03/05/2023 13:06:09 In the 14 days before symptom onset, have you had close contact with a person who is under investigation for COVID-19 while that person was ill? No [facility] 03/05/2023 13:06:09 Do you reside in or have you traveled to an area where Ebola virus transmission is active? No [facility] 03/05/2023 13:06:09 Have you processed blood or body fluids from an Ebola virus disease patient without appropriate PPE? No [facility] 03/05/2023 13:06:09 What was the date of your most recent tobacco screening? 01/30/2023 [facility] 03/05/2023 13:06:35 What is your level of caffeine consumption? Moderate [facility] 03/05/2023 13:06:35 What is the highest grade or level of school you have completed or the highest degree you have received? High school graduate [facility] 03/05/2023 13:06:49 Do you have smoke and carbon monoxide detectors in your home? Yes [facility] 03/18/2023 16:10:48 Are there any guns present in your home? No [facility] 03/18/2023 16:10:48 Do you use sunscreen routinely? No [facility] 03/18/2023 16:10:48 What is your relationship status? Unknown [facility] 03/18/2023 16:11:00 Are you sexually active? No [facility] 03/18/2023 16:11:00 How many children do you have? -1 [facility] 03/18/2023 16:11:00 Do you use your seat belt or car seat routinely? Yes [facility] 03/18/2023 16:11:03 What type of diet are you following? Regular [facility] 03/18/2023 16:11:11 Social History Observation Description Date Observed Sex Unknown 03/18/2023 Legal Sex Female Status Not (finding) 10/28/20 25 No social history survey screeners recorded No social history SDOH screeners recorded Functional Status Question Answer Note LastModified by Organizat ion Details LastModified Time Do you or have you ever used any other forms of tobacco or nicotine? [facility] 03/05/2023 13:06:35 What is your level of alcohol consumption? Occasional [facility] 03/05/2023 13:06:35 Do you use any illicit or recreational drugs? No [facility] 03/05/2023 13:06:35 Are you blind or do you have difficulty seeing? Yes [facility] 03/18/2023 16:10:41 Are you deaf or do you have serious difficulty hearing? No [facility] 03/18/2023 16:10:41 Do you have difficulty dressing, bathing, grooming, or toileting? Yes [facility] 03/18/2023 16:10:41 Do you have difficulty doing errands alone? Yes [facility] 03/18/2023 16:10:41 Do you have difficulty walking or climbing stairs? Yes [place] (Left leg) [facility] 03/18/2023 16:10:41 What is your exercise level? None [facility] 03/18/2023 16:11:11 No Functional Screening assessment recorded No Functional SDOH screeners recorded Mental Status Question Answer Note LastModified by Organizat ion Details LastModified Time Do you have difficulty concentrating, remembering or making decisions? No [facility] 03/18/2023 16:10:41 Do you feel stressed (tense, restless, nervous, or anxious, or unable to sleep at night)? Not at all [facility] 03/18/2023 16:11:03 No Mental Screening assessment recorded No Mental SDOH screeners recorded Family History Relationship Description Onset Age of [...] Diagnosis SNOMED-CT Code Diagnosis ICD10 Code Diagnosis IMO Codes Diagnosis Note [id number] Casper Delgado MD [address] [place] [address] 03/18/2023 14:45:35 03/18/2023 17:04:19 Essential hypertension 11746718 I10 elevated todayshe is taking amlodipin 10 mg and coreg 12.5 mg dailystart ing losartan 25 mg daily Type 2 jassi betes mellitus without complication 696074699 E11.9 controlled by PCP Dyspnea on exertion 6084 5006 R06.09 will do echo to see the structure of her heart Lexiscan Myoview stress test, pt can not walk. Has known coronary artery disease, with atypical symptoms now Edema of l ower extremity 488844898 R60.0 will start her on lasix 20 mg BID daily Health Concerns Section Related Observation LastModified by Organization Detai ls LastModified Time None Recorded Concern Status LastModified by Organization Details LastModified Time None Recorded SDOH Concern Status LastModified by Organization Detai ls LastModified Time None Recorded Advance Directives Directive None Recorded Payers Insurance Date Sequence Insurance Name Policy Number Policy Bobo Covered Member ID Bobo Member ID Guarantor Name 03/18/2023 2 [place] [employer] Gay Mata [id number] Gay Mata 04/19/2023 1 [facility] PRIOR TO 06/03/2025 (MEDICAID REPLACEMENT - HMO) [id number] Gay Mata [id number] Gay Mata Notes Date Note Type Note [...] headache.*Last LDL was done on .Pt takes. CARLEEN [place], [place] - [facility] 03/18/2023 17:02:13 Care Team Name Role Member ID Specialty Address Phone None Recorded. OBGyn Episode No OBEpisode recorded.
--- OUTSIDE RECORDS SUMMARY | 2025-10-28 10:46 | XMS_ITS ---
Author Organization Eliot alcazar ([facility]) Address [facility] [address], [place] [address] Care Team Providers Care Buffet Attendant Name Role Phone Unavailable Unavailable Unavailable Allergies, Adverse Reactions, Alerts Allergy Name Allergy Type Status Severity Reaction(s) Onset Date Inactive Date Treating Clinician Comments No Known Allergies Allergy Active 2023-08 13:49:5 6 Medications Ordered Medication Name Filled Medication Name Start Date Stop Date Current Medication? Ordering Clinician Indication Dosage Frequency Signature (SIG) Comments Components ondansetron hydrochlori de 2024-11 14:59: 02 Yes [id number] Number of Repeats Allowed: Frequency: Every 4 hours as needed heparin sodium, porcine 2024-11 14:20: 34 Yes [id number] Number of Repeats Allowed: Frequency: Post-dialy sisDosesOr dered: Post CVC Instillati on 1800 Units 1:1000 Units/mLRo [place]: Intracathe terDosesOr dered: Post CVC Instillati on 1800 Units 1:1000 Units/mLRo [place]: Intracathe ter calcitriol 2024-11 06:00: 00 Yes [id number] Number of Repeats Allowed: Frequency: Three times a week Heplisav-B 2024-11 06:00: 00 10-27 05:59 :59 Yes [id number] Number of Repeats Allowed: Frequency: One time only Mircera 2024-11 15:53: 27 Yes [id number] Number of Repeats Allowed: Frequency: NEELAM dosing, every two weeks Mircera 2024-11 14:20: 53 Yes [id number] Number of Repeats Allowed: Frequency: NEELAM dosing, every two weeks Venofer 2024-11 15:32: 59 Yes [id number] Number of Repeats Allowed: 10Frequenc y: Every Dialysis TreatmentD osesOrdere d: Loading Dose 100 Milligram Route: Intravenou s calcitriol 2024-11 06:00: 00 Yes [id number] Number of Repeats Allowed: Frequency: Three times a week Mircera 2024-11 17:51: 33 Yes [id number] Number of Repeats Allowed: Frequency: NEELAM dosing, every two weeks ONS [facility] 06-29 13:24: 29 Yes [id number] Number of Repeats Allowed: Frequency: Every Dialysis Treatment clonidine 03-09 13:49: 53 Yes [id number] Number of Repeats Allowed: Frequency: Every 4 hours as needed clonidine 03-09 13:49: 37 Yes [id number] Number of Repeats Allowed: Frequency: Every 4 hours as needed heparin sodium, porcine 01-26 19:17: 45 Yes [id number] Number of Repeats Allowed: Frequency: Every Dialysis TreatmentD osesOrdere d: Loading Dose 3000 Units 1:1000 Units/mLRo [place]: Intravenou s heparin sodium, porcine 01-26 19:17: 25 Yes [id number] Number of Repeats Allowed: Frequency: Every Dialysis TreatmentD osesOrdere d: Hourly Dose 1000 Units/Hr 1:1000 Units/mLRo [place]: Intravenou s ondansetron hydrochlori de 2 17:42: 27 Yes [id number] Number of Repeats Allowed: Frequency: Every 4 hours as needed heparin sodium, porcine 2022-11 19:43: 45 Yes [id number] Number of Repeats Allowed: Frequency: Post-dialy sisDosesOr dered: Post CVC Instillati on 2000 Units 1:1000 Units/mLRo [place]: Intracathe terDosesOr dered: Post CVC Instillati on 2100 Units 1:1000 Units/mLRo [place]: Intracathe ter Oxygen 2022-11 14:41: 49 Yes [id number] Number of Repeats Allowed: Frequency: As needed Normal Saline Solution 0.9% NaCl 2022-11 0 14:41: 27 Yes [id number] Number of Repeats Allowed: Frequency: As needed EpiPen 2-Nickolas 2022-11 0 14:41: 18 Yes [id number] Number of Repeats Allowed: Frequency: Every 4 hours as needed diphenhydra mine hydrochlori de 2022-11 024 14:41: 09 Yes [id number] Number of Repeats Allowed: Frequency: Every 4 hours as needed diphenhydra mine hydrochlori de 2022-11 0 14:40: 58 Yes [id number] Number of Repeats Allowed: Frequency: Every 4 hours as needed acetaminoph en 2022-11 0 14:39: 42 Yes [id number] Number of Repeats Allowed: Frequency: Every 4 hours as needed Problems This patient has no known problems. Procedures Procedure Date / Time Performed Performing Clinician Jewell ce Details Central Venous Catheter (CVC) 2025-10-18 06:00:00 Access Site Chest (Left) Access Use Start Date 2025-10-25 00:00:0 0 Central Venous Catheter (CVC)2023-08-15 05:00:00 Access Site Chest (Left) Access Use Start Date 2023-08-26 00:00:0 0 Access Use End Date 2025-10-18 06:00:00 DIALYSIS TREATMENT INFORMATION Conventional Hemodialysis Date Type Treatment Start Date Treatment End Date Pre-Treatment Vitals Post-Treatment Vitals Weight Gain BFR DFR Actual UF Dialysis Access Decem 2024 In-Ce nter Hemod ialys is Treat ment 2025-10-28 T14:06:00. 000Z 2025-10-28 T16:16:17. 000Z BP Sitting (Pre-Dialysis) 181/99 mmHg BP Sitting (Post-D ialysis ) 157/ 57 mmHg Sitting Heart Rate Pre-Dialysis 89 BPM Sitting H eart Rate Post-Dialysis 90 BPM Temperature Pre-Dialysis 97.8 degF Temperature Post -Dialysis 97.3 degF October 25, 2025 In-Center Hemodialysis Treatment 3569-99-46P08:17:32.000Z 2278-44-18M32:54:12.000Z BP Sitting (Pre-Dialysis) 152/85 mmHg BP Sitting (Post-Dialysis) 131/82 mmHg Concurrent Access: falseCentral Venous Catheter (CVC) Chest (Left) ArterialCentral Venous Catheter (CVC) Chest (Left) Venous Sitting Heart Rate Pre-Dialysis 91 BPM Sitting H eart Rate Post-Dialysis 88 BPM Temperature Pre-Dialysis 98.4 degF Temperature Post -Dialysis 97.4 degF October 21, 2025 In-Center Hemodialysis Treatment 0227-67-38C38:02:34.000Z 3595-54-45E02:25:54.000Z BP Sitting (Pre-Dialysis) 144/82 mmHg BP Sitting (Post-Dialysis) 111/71 mmHg Concurrent Access: falseCentral Venous Catheter (CVC) Chest (Left) Arterial Sitting Heart Rate Pre-Dialysis 89 BPM Sitting H eart Rate Post-Dialysis 88 BPM Temperature Pre-Dialysis 97.2 degF Temperature Post -Dialysis 97.2 degF October 19, 2025 In-Center Hemodialysis Treatment 8051-64-59Z75:06:31.000Z 1847-84-32Z16:29:51.000Z BP Sitting (Pre-Dialysis) 169/89 mmHg BP Sitting (Post-Dialysis) 127/69 mmHg Concurrent Access: falseCentral Venous Catheter (CVC) Chest (Left) Arterial Sitting Heart Rate Pre-Dialysis 86 BPM Sitting H eart Rate Post-Dialysis 84 BPM Temperature Pre-Dialysis 98.2 degF Temperature Post -Dialysis 97.5 degF October 14, 2025 In-Center Hemodialysis Treatment 400 mL/min 800 mL/min Concurrent Access: false October 12, 2025 In-Center Hemodialysis Treatment 2- 10 T1 4: 58 :0 0. 00 0Z 2- 10 T1 7: 55 :3 5. 00 0Z BP Sitting (Pre-Dial ysis) 184/98 mmHg BP Sitting (Post-Di alysis) 126/6 9 mmHg Concurrent Access: falseCentral Venous Catheter (CVC) Chest (Left) Arterial Sitting Heart Rate Pre-Dialysis 89 BPM Sitting H eart Rate Post-Dialysis 88 BPM Temperature Pre-Dialysis 97.2 degF Temperature Post -Dialysis 97.2 degF October 10, 2025 In-Center Hemodialysis Treatment 4508-98-87Y40:56:00.000Z 6753-34-17S23:12:58.000Z BP Sitting (Pre-Dialysis) 160/84 mmHg BP Sitting (Post-Dialysis) 121/71 mmHg Concurrent Access: falseCentral Venous Catheter (CVC) Chest (Left) Arterial Sitting Heart Rate Pre-Dialysis 91 BPM Sitting H eart Rate Post-Dialysis 88 BPM Temperature Pre-Dialysis 97.2 degF Temperature Post -Dialysis 98.2 degF October 07, 2025 In-Center Hemodialysis Treatment 8812-91-44J95:05:28.000Z 7296-94-26V75:05:27.000Z BP Sitting (Pre-Dialysis) 200/114 mmHg BP Sitting (Post-Dialysis) 150/98 mmHg Concurrent Access: falseCentral Venous Catheter (CVC) Chest (Left) Arterial Sitting Heart Rate Pre-Dialysis 92 BPM Sitting H eart Rate Post-Dialysis 90 BPM Temperature Pre-Dialysis 97 degF Temperature Post -Dialysis 97.9 degF October 03, 2025 In-Center Hemodialysis Treatment 3475-13-26X83:06:45.000Z 0033-07-96S01:57:10.000Z BP Sitting (Pre-Dialysis) 174/98 mmHg BP Sitting (Post-Dialysis) 148/77 mmHg Concurrent Access: falseCentral Venous Catheter (CVC) Chest (Left) Arterial Sitting Heart Rate Pre-Dialysis 87 BPM Sitting H eart Rate Post-Dialysis 87 BPM Temperature Pre-Dialysis 98 degF Temperature Post -Dialysis 97.7 degF September 30, 2025 In-Center Hemodialysis Treatment 4854-30-83K72:49:47.000Z 1009-86-92E09:26:52.000Z BP Sitting (Pre-Dialysis) 147/79 mmHg BP Sitting (Post-Dialysis) 128/79 mmHg Concurrent Access: falseCentral Venous Catheter (CVC) Chest (Left) Arterial Sitting Heart Rate Pre-Dialysis 86 BPM Sitting H eart Rate Post-Dialysis 84 BPM Temperature Pre-Dialysis 98.2 degF Temperature Post -Dialysis 97.8 degF September 25, 2025 In-Center Hemodialysis Treatment 5941-77-82R86:56:52.000Z 0981-37-95L00:26:27.000Z BP Sitting (Pre-Dialysis) 185/109 mmHg BP Sitting (Post-Dialysis) 123/66 mmHg Concurrent Access: falseCentral Venous Catheter (CVC) Chest (Left) Arterial Sitting Heart Rate Pre-Dialysis 85 BPM Sitting H eart Rate Post-Dialysis 79 BPM Temperature Pre-Dialysis 98.5 degF Temperature Post -Dialysis 97.6 degF September 23, 2025 In-Center Hemodialysis Treatment 4517-17-56H71:09:36.000Z 9134-97-12B04:39:36.000Z BP Sitting (Pre-Dialysis) 167/88 mmHg BP Sitting (Post-Dialysis) 163/90 mmHg Concurrent Access: falseCentral Venous Catheter (CVC) Chest (Left) Arterial Sitting Heart Rate Pre-Dialysis 85 BPM Sitting H eart Rate Post-Dialysis 78 BPM Temperature Pre-Dialysis 98 degF Temperature Post -Dialysis 97.6 degF September 21, 2025 In-Center Hemodialysis Treatment 4593-64-81R91:54:00.000Z 9270-48-30Z85:27:24.000Z BP Sitting (Pre-Dialysis) 163/85 mmHg BP Sitting (Post-Dialysis) 173/107 mmHg Concurrent Access: falseCentral Venous Catheter (CVC) Chest (Left) Arterial Sitting Heart Rate Pre-Dialysis 81 BPM Sitting H eart Rate Post-Dialysis 80 BPM Temperature Pre-Dialysis 97.7 degF Temperature Post -Dialysis 97.2 degF September 19, 2025 In-Center Hemodialysis Treatment 0444-40-24A51:03:00.000Z 0406-06-86O44:35:00.000Z BP Sitting (Pre-Dialysis) 119/69 mmHg BP Sitting (Post-Dialysis) 134/84 mmHg Concurrent Access: falseCentral Venous Catheter (CVC) Chest (Left) Arterial Sitting Heart Rate Pre-Dialysis 77 BPM Sitting H eart Rate Post-Dialysis 76 BPM Temperature Pre-Dialysis 97.9 degF Temperature Post -Dialysis 97.6 degF 2025 In-Center Hemodialysis Treatment 3306-93-65F13:56:50.000Z 2460-02-25R56:27:40.000Z BP Sitting (Pre-Dialysis) 160/80 mmHg BP Sitting (Post-Dialysis) 152/93 mmHg Concurrent Access: falseCentral Venous Catheter (CVC) Chest (Left) Arterial Sitting Heart Rate Pre-Dialysis 80 BPM Sitting H eart Rate Post-Dialysis 79 BPM Temperature Pre-Dialysis 98 degF Temperature Post -Dialysis 97.6 degF September 12, 2025 In-Center Hemodialysis Treatment 2699-45-50X01:09:41.000Z 3376-68-53X16:39:38.000Z BP Sitting (Pre-Dialysis) 165/88 mmHg BP Sitting (Post-Dialysis) 193/106 mmHg Concurrent Access: falseCentral Venous Catheter (CVC) Chest (Left) Arterial Sitting Heart Rate Pre-Dialysis 80 BPM Sitting H eart Rate Post-Dialysis 83 BPM Temperature Pre-Dialysis 97.7 degF Temperature Post -Dialysis 97.9 degF September 09, 2025 In-Center Hemodialysis Treatment 6893-28-07V75:57:12.000Z 4048-29-22H66:32:12.000Z BP Sitting (Pre-Dialysis) 152/86 mmHg BP Sitting (Post-Dialysis) 182/103 mmHg Concurrent Access: falseCentral Venous Catheter (CVC) Chest (Left) Arterial Sitting Heart Rate Pre-Dialysis 87 BPM Sitting H eart Rate Post-Dialysis 87 BPM Temperature Pre-Dialysis 98.2 degF Temperature Post -Dialysis 97.6 degF September 07, 2025 In-Center Hemodialysis Treatment 2060-12-60Z30:20:00.000Z 3864-91-85Z19:52:48.000Z BP Sitting (Pre-Dialysis) 163/91 mmHg BP Sitting (Post-Dialysis) 175/95 mmHg Concurrent Access: falseCentral Venous Catheter (CVC) Chest (Left) Arterial Sitting Heart Rate Pre-Dialysis 92 BPM Sitting H eart Rate Post-Dialysis 86 BPM Temperature Pre-Dialysis 98.3 degF Temperature Post -Dialysis 97.3 degF September 05, 2025 In-Center Hemodialysis Treatment 7697-58-99V56:31:27.000Z 3907-62-15D76:01:02.000Z BP Sitting (Pre-Dialysis) 157/90 mmHg BP Sitting (Post-Dialysis) 188/112 mmHg Concurrent Access: falseCentral Venous Catheter (CVC) Chest (Left) Arterial Sitting Heart Rate Pre-Dialysis 91 BPM Sitting H eart Rate Post-Dialysis 85 BPM Temperature Pre-Dialysis 98.4 degF Temperature Post -Dialysis 98.4 degF September 02, 2025 In-Center Hemodialysis Treatment 3867-88-56X17:13:00.000Z 5741-72-06M12:10:58.000Z BP Sitting (Pre-Dialysis) 160/86 mmHg BP Sitting (Post-Dialysis) 161/95 mmHg Concurrent Access: falseCentral Venous Catheter (CVC) Chest (Left) Arterial Sitting Heart Rate Pre-Dialysis 84 BPM Sitting H eart Rate Post-Dialysis 83 BPM Temperature Pre-Dialysis 97.8 degF Temperature Post -Dialysis 96.9 degF August 29, 2025 In-Center Hemodialysis Treatment 7517-35-69L25:10:46.000Z 4796-29-37S12:40:21.000Z BP Sitting (Pre-Dialysis) 110/42 mmHg BP Sitting (Post-Dialysis) 133/86 mmHg Concurrent Access: falseCentral Venous Catheter (CVC) Chest (Left) Arterial Sitting Heart Rate Pre-Dialysis 127 BPM Sitting H eart Rate Post-Dialysis 85 BPM Temperature Pre-Dialysis 97.9 degF Temperature Post -Dialysis 97.7 degF August 26, 2025 In-Center Hemodialysis Treatment 5468-82-28O83:29:11.000Z 8155-46-67D81:58:46.000Z BP Sitting (Pre-Dialysis) 165/98 mmHg BP Sitting (Post-Dialysis) 167/97 mmHg Concurrent Access: falseCentral Venous Catheter (CVC) Chest (Left) Arterial Sitting Heart Rate Pre-Dialysis 87 BPM Sitting H eart Rate Post-Dialysis 84 BPM Temperature Pre-Dialysis 97.5 degF Temperature Post -Dialysis 97.7 degF August 24, 2025 In-Center Hemodialysis Treatment 0572-87-37N01:59:09.000Z 4706-71-33C76:28:44.000Z BP Sitting (Pre-Dialysis) 189/101 mmHg BP Sitting (Post-Dialysis) 176/96 mmHg Concurrent Access: falseCentral Venous Catheter (CVC) Chest (Left) Arterial Sitting Heart Rate Pre-Dialysis 99 BPM Sitting H eart Rate Post-Dialysis 87 BPM Temperature Pre-Dialysis 98.8 degF August 19, 2025 In-Center Hemodialysis Treatment 7230-79-32L00:28:50.000Z 8757-42-77K87:57:35.000Z BP Sitting (Pre-Dialysis) 199/104 mmHg BP Sitting (Post-Dialysis) 180/103 mmHg Concurrent Access: falseCentral Venous Catheter (CVC) Chest (Left) Arterial Sitting Heart Rate Pre-Dialysis 88 BPM Sitting H eart Rate Post-Dialysis 88 BPM Temperature Pre-Dialysis 98.3 degF Temperature Post -Dialysis 97.9 degF August 17, 2025 In-Center Hemodialysis Treatment 3596-27-04F11:24:00.000Z 9813-02-81W55:22:46.000Z BP Sitting (Pre-Dialysis) 178/99 mmHg BP Sitting (Post-Dialysis) 192/114 mmHg Concurrent Access: falseCentral Venous Catheter (CVC) Chest (Left) Arterial Sitting Heart Rate Pre-Dialysis 89 BPM Sitting H eart Rate Post-Dialysis 87 BPM Temperature Pre-Dialysis 97.9 degF Temperature Post -Dialysis 98 degF August 15, 2025 In-Center Hemodialysis Treatment 6037-11-65J34:23:31.000Z 7452-13-76H45:33:06.000Z BP Sitting (Pre-Dialysis) 155/92 mmHg BP Sitting (Post-Dialysis) 132/79 mmHg Concurrent Access: falseCentral Venous Catheter (CVC) Chest (Left) Arterial Sitting Heart Rate Pre-Dialysis 91 BPM Sitting H eart Rate Post-Dialysis 84 BPM Temperature Pre-Dialysis 98.3 degF Temperature Post -Dialysis 97.9 degF August 12, 2025 In-Center Hemodialysis Treatment 9705-16-82W20:39:25.000Z 7899-60-75W18:09:25.000Z BP Sitting (Pre-Dialysis) 185/112 mmHg BP Sitting (Post-Dialysis) 182/108 mmHg Concurrent Access: falseCentral Venous Catheter (CVC) Chest (Left) Arterial Sitting Heart Rate Pre-Dialysis 95 BPM Sitting H eart Rate Post-Dialysis 90 BPM Temperature Pre-Dialysis 98.1 degF Temperature Post -Dialysis 97.9 degF August 08, 2025 In-Center Hemodialysis Treatment 5661-91-85J81:13:00.000Z 7286-43-11Z10:49:57.000Z BP Sitting (Pre-Dialysis) 176/96 mmHg BP Sitting (Post-Dialysis) 127/68 mmHg Concurrent Access: falseCentral Venous Catheter (CVC) Chest (Left) Arterial Sitting Heart Rate Pre-Dialysis 86 BPM Sitting H eart Rate Post-Dialysis 90 BPM Temperature Pre-Dialysis 97.8 degF Temperature Post -Dialysis 97.5 degF August 05, 2025 In-Center Hemodialysis Treatment 2468-71-67O13:23:19.000Z 0804-38-94T80:53:23.000Z BP Sitting (Pre-Dialysis) 185/97 mmHg BP Sitting (Post-Dialysis) 119/68 mmHg Concurrent Access: falseCentral Venous Catheter (CVC) Chest (Left) Arterial Sitting Heart Rate Pre-Dialysis 96 BPM Sitting H eart Rate Post-Dialysis 87 BPM Temperature Pre-Dialysis 98.2 degF Temperature Post -Dialysis 97.5 degF August 03, 2025 In-Center Hemodialysis Treatment 8289-78-23T03:17:00.000Z 8986-34-15H87:50:19.000Z BP Sitting (Pre-Dialysis) 181/99 mmHg BP Sitting (Post-Dialysis) 179/101 mmHg Concurrent Access: falseCentral Venous Catheter (CVC) Chest (Left) Arterial Sitting Heart Rate Pre-Dialysis 89 BPM Sitting H eart Rate Post-Dialysis 76 BPM Temperature Pre-Dialysis 98.2 degF Temperature Post -Dialysis 97.6 degF July 29, 2025 In-Center Hemodialysis Treatment 8671-00-28T99:17:00.000Z 8231-84-33C08:14:48.000Z BP Sitting (Pre-Dialysis) 159/86 mmHg BP Sitting (Post-Dialysis) 103/63 mmHg Concurrent Access: falseCentral Venous Catheter (CVC) Chest (Left) Arterial Sitting Heart Rate Pre-Dialysis 83 BPM Sitting H eart Rate Post-Dialysis 62 BPM Temperature Pre-Dialysis 98 degF Temperature Post -Dialysis 97.6 degF July 27, 2025 In-Center Hemodialysis Treatment 6416-64-90C63:29:20.000Z 9651-35-87N41:48:05.000Z BP Sitting (Pre-Dialysis) 164/93 mmHg BP Sitting (Post-Dialysis) 113/64 mmHg Concurrent Access: falseCentral Venous Catheter (CVC) Chest (Left) Arterial Sitting Heart Rate Pre-Dialysis 80 BPM Sitting H eart Rate Post-Dialysis 83 BPM Temperature Pre-Dialysis 98 degF Temperature Post -Dialysis 97.6 degF July 22, 2025 In-Center Hemodialysis Treatment 3962-98-98A55:15:58.000Z 9842-80-99A39:16:22.000Z BP Sitting (Pre-Dialysis) 140/74 mmHg BP Sitting (Post-Dialysis) 101/55 mmHg Concurrent Access: falseCentral Venous Catheter (CVC) Chest (Left) Arterial Sitting Heart Rate Pre-Dialysis 85 BPM Sitting H eart Rate Post-Dialysis 71 BPM Temperature Pre-Dialysis 98.1 degF Temperature Post -Dialysis 97.4 degF July 20, 2025 In-Center Hemodialysis Treatment 1374-41-46C68:32:19.000Z 2098-85-33G53:10:30.000Z BP Sitting (Pre-Dialysis) 166/83 mmHg BP Sitting (Post-Dialysis) 135/65 mmHg Concurrent Access: falseCentral Venous Catheter (CVC) Chest (Left) Arterial Sitting Heart Rate Pre-Dialysis 83 BPM Sitting H eart Rate Post-Dialysis 86 BPM Temperature Pre-Dialysis 98.3 degF Temperature Post -Dialysis 97.4 degF July 15, 2025 In-Center Hemodialysis Treatment 0785-97-42M97:15:57.000Z 9500-27-96L66:38:27.000Z BP Sitting (Pre-Dialysis) 167/94 mmHg BP Sitting (Post-Dialysis) 92/62 mmHg Concurrent Access: falseCentral Venous Catheter (CVC) Chest (Left) Arterial Sitting Heart Rate Pre-Dialysis 88 BPM Sitting H eart Rate Post-Dialysis 84 BPM Temperature Pre-Dialysis 98.2 degF Temperature Post -Dialysis 97.6 degF July 13, 2025 In-Center Hemodialysis Treatment 5064-85-67J83:19:40.000Z 4680-33-88H03:49:40.000Z BP Sitting (Pre-Dialysis) 179/105 mmHg BP Sitting (Post-Dialysis) 127/78 mmHg Concurrent Access: falseCentral Venous Catheter (CVC) Chest (Left) Arterial Sitting Heart Rate Pre-Dialysis 87 BPM Sitting H eart Rate Post-Dialysis 87 BPM Temperature Pre-Dialysis 98 degF Temperature Post -Dialysis 97.9 degF July 08, 2025 In-Center Hemodialysis Treatment 9626-78-97U97:18:00.000Z 6467-56-07K59:49:00.000Z BP Sitting (Pre-Dialysis) 192/104 mmHg BP Sitting (Post-Dialysis) 150/100 mmHg Concurrent Access: falseCentral Venous Catheter (CVC) Chest (Left) Arterial Sitting Heart Rate Pre-Dialysis 90 BPM Sitting H eart Rate Post-Dialysis 85 BPM Temperature Pre-Dialysis 97.9 degF Temperature Post -Dialysis 97.3 degF June 29, 2025 In-Center Hemodialysis Treatment 3335-18-52D61:20:56.000Z 3221-03-16H17:37:03.000Z BP Sitting (Pre-Dialysis) 178/96 mmHg BP Sitting (Post-Dialysis) 156/94 mmHg Concurrent Access: falseCentral Venous Catheter (CVC) Chest (Left) Arterial Sitting Heart Rate Pre-Dialysis 90 BPM Sitting H eart Rate Post-Dialysis 87 BPM Temperature Pre-Dialysis 98.1 degF Temperature Post -Dialysis 98.6 degF June 27, 2025 In-Center Hemodialysis Treatment 1239-91-01K49:18:00.000Z 1292-71-64C19:42:25.000Z BP Sitting (Pre-Dialysis) 163/88 mmHg BP Sitting (Post-Dialysis) 132/76 mmHg Concurrent Access: falseCentral Venous Catheter (CVC) Chest (Left) Arterial Sitting Heart Rate Pre-Dialysis 90 BPM Sitting H eart Rate Post-Dialysis 89 BPM Temperature Pre-Dialysis 98.7 degF Temperature Post -Dialysis 98.1 degF June 22, 2025 In-Center Hemodialysis Treatment 7983-70-02D13:26:22.000Z 8618-08-93U06:32:12.000Z BP Sitting (Pre-Dialysis) 145/86 mmHg BP Sitting (Post-Dialysis) 116/82 mmHg Concurrent Access: falseCentral Venous Catheter (CVC) Chest (Left) Arterial Sitting Heart Rate Pre-Dialysis 82 BPM Sitting H eart Rate Post-Dialysis 80 BPM Temperature Pre-Dialysis 98.2 degF Temperature Post -Dialysis 97.3 degF June 20, 2025 In-Center Hemodialysis Treatment 7870-82-59M24:12:00.000Z 8025-84-05T10:31:09.000Z BP Sitting (Pre-Dialysis) 168/99 mmHg BP Sitting (Post-Dialysis) 110/64 mmHg Concurrent Access: falseCentral Venous Catheter (CVC) Chest (Left) Arterial Sitting Heart Rate Pre-Dialysis 87 BPM Sitting H eart Rate Post-Dialysis 80 BPM Temperature Pre-Dialysis 98.1 degF Temperature Post -Dialysis 97.7 degF June 17, 2025 In-Center Hemodialysis Treatment 3661-25-57O53:21:54.000Z 9023-06-85O35:53:59.000Z BP Sitting (Pre-Dialysis) 141/81 mmHg BP Sitting (Post-Dialysis) 111/68 mmHg Concurrent Access: falseCentral Venous Catheter (CVC) Chest (Left) Arterial Sitting Heart Rate Pre-Dialysis 81 BPM Sitting H eart Rate Post-Dialysis 80 BPM Temperature Pre-Dialysis 98.1 degF Temperature Post -Dialysis 97.6 degF June 15, 2025 In-Center Hemodialysis Treatment 0923-12-71H59:16:03.000Z 8488-11-30T14:33:33.000Z BP Sitting (Pre-Dialysis) 159/100 mmHg BP Sitting (Post-Dialysis) 126/78 mmHg Concurrent Access: falseCentral Venous Catheter (CVC) Chest (Left) Arterial Sitting Heart Rate Pre-Dialysis 84 BPM Sitting H eart Rate Post-Dialysis 82 BPM Temperature Pre-Dialysis 97.9 degF Temperature Post -Dialysis 97.2 degF June 10, 2025 In-Center Hemodialysis Treatment 3075-15-38O31:22:00.000Z 4836-10-82Y67:46:01.000Z BP Sitting (Pre-Dialysis) 177/106 mmHg BP Sitting (Post-Dialysis) 146/93 mmHg Concurrent Access: falseCentral Venous Catheter (CVC) Chest (Left) Arterial Sitting Heart Rate Pre-Dialysis 82 BPM Sitting H eart Rate Post-Dialysis 82 BPM Temperature Pre-Dialysis 97.7 degF Temperature Post -Dialysis 98.2 degF June 08, 2025 In-Center Hemodialysis Treatment 5999-62-07B07:18:00.000Z 7081-40-52U27:40:00.000Z BP Sitting (Pre-Dialysis) 192/105 mmHg BP Sitting (Post-Dialysis) 132/78 mmHg Concurrent Access: falseCentral Venous Catheter (CVC) Chest (Left) Arterial Sitting Heart Rate Pre-Dialysis 89 BPM Sitting H eart Rate Post-Dialysis 87 BPM Temperature Pre-Dialysis 98.3 degF Temperature Post -Dialysis 97.3 degF June 06, 2025 In-Center Hemodialysis Treatment 6866-05-36Y27:47:13.000Z 2894-75-82R65:08:28.000Z BP Sitting (Pre-Dialysis) 157/89 mmHg BP Sitting (Post-Dialysis) 164/80 mmHg Concurrent Access: falseCentral Venous Catheter (CVC) Chest (Left) Arterial Sitting Heart Rate Pre-Dialysis 100 BPM Sitting H eart Rate Post-Dialysis 100 BPM Temperature Pre-Dialysis 98.5 degF Temperature Post -Dialysis 98 degF June 03, 2025 In-Center Hemodialysis Treatment 5354-26-42F97:21:00.000Z 4495-36-67L72:45:26.000Z BP Sitting (Pre-Dialysis) 192/109 mmHg BP Sitting (Post-Dialysis) 155/102 mmHg Concurrent Access: falseCentral Venous Catheter (CVC) Chest (Left) Arterial Sitting Heart Rate Pre-Dialysis 103 BPM Sitting H eart Rate Post-Dialysis 101 BPM Temperature Pre-Dialysis 98.7 degF Temperature Post -Dialysis 98 degF May 30, 2025 In-Center Hemodialysis Treatment 5837-79-23R48:15:58.000Z 0504-59-50Q81:59:43.000Z BP Sitting (Pre-Dialysis) 169/95 mmHg BP Sitting (Post-Dialysis) 147/87 mmHg Concurrent Access: falseCentral Venous Catheter (CVC) Chest (Left) Arterial Sitting Heart Rate Pre-Dialysis 85 BPM Sitting H eart Rate Post-Dialysis 83 BPM Temperature Pre-Dialysis 98.5 degF Temperature Post -Dialysis 98 degF May 27, 2025 In-Center Hemodialysis Treatment 3111-02-83H09:59:00.000Z 6169-60-41O85:32:59.000Z BP Sitting (Pre-Dialysis) 182/113 mmHg BP Sitting (Post-Dialysis) 110/73 mmHg Concurrent Access: falseCentral Venous Catheter (CVC) Chest (Left) Arterial Sitting Heart Rate Pre-Dialysis 91 BPM Sitting H eart Rate Post-Dialysis 91 BPM Temperature Pre-Dialysis 98 degF Temperature Post -Dialysis 97.8 degF May 23, 2025 In-Center Hemodialysis Treatment 1628-44-22T45:15:00.000Z 6322-90-64K41:27:04.000Z BP Sitting (Pre-Dialysis) 196/105 mmHg BP Sitting (Post-Dialysis) 175/95 mmHg Concurrent Access: falseCentral Venous Catheter (CVC) Chest (Left) Arterial Sitting Heart Rate Pre-Dialysis 92 BPM Sitting H eart Rate Post-Dialysis 98 BPM Temperature Pre-Dialysis 97.7 degF Temperature Post -Dialysis 97.9 degF May 20, 2025 In-Center Hemodialysis Treatment 8974-81-18G64:17:34.000Z 7251-22-44Y39:35:54.000Z BP Sitting (Pre-Dialysis) 173/96 mmHg BP Sitting (Post-Dialysis) 143/87 mmHg Concurrent Access: falseCentral Venous Catheter (CVC) Chest (Left) Arterial Sitting Heart Rate Pre-Dialysis 91 BPM Sitting H eart Rate Post-Dialysis 85 BPM Temperature Pre-Dialysis 98.5 degF Temperature Post -Dialysis 98.1 degF May 18, 2025 In-Center Hemodialysis Treatment 8981-73-93Z73:12:20.000Z 3516-35-01M89:05:15.000Z BP Sitting (Pre-Dialysis) 197/101 mmHg BP Sitting (Post-Dialysis) 137/71 mmHg Concurrent Access: falseCentral Venous Catheter (CVC) Chest (Left) Arterial Sitting Heart Rate Pre-Dialysis 92 BPM Sitting H eart Rate Post-Dialysis 89 BPM Temperature Pre-Dialysis 98.4 degF Temperature Post -Dialysis 98 degF May 16, 2025 In-Center Hemodialysis Treatment 2316-70-39Q13:32:12.000Z 3134-17-91O52:53:27.000Z BP Sitting (Pre-Dialysis) 199/114 mmHg BP Sitting (Post-Dialysis) 141/71 mmHg Concurrent Access: falseCentral Venous Catheter (CVC) Chest (Left) Arterial Sitting Heart Rate Pre-Dialysis 93 BPM Sitting H eart Rate Post-Dialysis 90 BPM Temperature Pre-Dialysis 98.2 degF Temperature Post -Dialysis 98 degF May 13, 2025 In-Center Hemodialysis Treatment 0196-34-70D50:23:17.000Z 2343-82-57B94:49:32.000Z BP Sitting (Pre-Dialysis) 159/89 mmHg BP Sitting (Post-Dialysis) 111/76 mmHg Concurrent Access: falseCentral Venous Catheter (CVC) Chest (Left) Arterial Sitting Heart Rate Pre-Dialysis 89 BPM Sitting H eart Rate Post-Dialysis 88 BPM Temperature Pre-Dialysis 97.8 degF Temperature Post -Dialysis 97.7 degF May 09, 2025 In-Center Hemodialysis Treatment 8780-23-94I43:33:53.000Z 8441-11-59U46:54:18.000Z BP Sitting (Pre-Dialysis) 212/118 mmHg BP Sitting (Post-Dialysis) 110/70 mmHg Concurrent Access: falseCentral Venous Catheter (CVC) Chest (Left) Arterial Sitting Heart Rate Pre-Dialysis 87 BPM Sitting H eart Rate Post-Dialysis 89 BPM Temperature Pre-Dialysis 98.3 degF Temperature Post -Dialysis 97.5 degF May 04, 2025 In-Center Hemodialysis Treatment 8276-04-98L57:26:27.000Z 6562-11-77B10:24:22.000Z BP Sitting (Pre-Dialysis) 148/77 mmHg BP Sitting (Post-Dialysis) 105/61 mmHg Concurrent Access: falseCentral Venous Catheter (CVC) Chest (Left) Arterial Sitting Heart Rate Pre-Dialysis 84 BPM Sitting H eart Rate Post-Dialysis 92 BPM Temperature Pre-Dialysis 98.2 degF Temperature Post -Dialysis 97.2 degF May 02, 2025 In-Center Hemodialysis Treatment 7359-82-45P51:32:15.000Z 5390-10-54U53:32:40.000Z BP Sitting (Pre-Dialysis) 202/105 mmHg BP Sitting (Post-Dialysis) 163/110 mmHg Concurrent Access: falseCentral Venous Catheter (CVC) Chest (Left) Arterial Sitting Heart Rate Pre-Dialysis 89 BPM Sitting H eart Rate Post-Dialysis 93 BPM Temperature Pre-Dialysis 98.1 degF Temperature Post -Dialysis 97.2 degF April 29, 2025 In-Center Hemodialysis Treatment 6348-59-36R90:20:00.000Z 2849-81-99Q56:08:22.000Z BP Sitting (Pre-Dialysis) 174/95 mmHg BP Sitting (Post-Dialysis) 144/95 mmHg Concurrent Access: falseCentral Venous Catheter (CVC) Chest (Left) Arterial Sitting Heart Rate Pre-Dialysis 82 BPM Sitting H eart Rate Post-Dialysis 86 BPM Temperature Pre-Dialysis 98.3 degF Temperature Post -Dialysis 98 degF April 25, 2025 In-Center Hemodialysis Treatment 8200-37-38N18:20:00.000Z 4990-55-46P50:48:15.000Z BP Sitting (Pre-Dialysis) 185/103 mmHg BP Sitting (Post-Dialysis) 132/81 mmHg Concurrent Access: falseCentral Venous Catheter (CVC) Chest (Left) Arterial Sitting Heart Rate Pre-Dialysis 98 BPM Sitting H eart Rate Post-Dialysis 94 BPM Temperature Pre-Dialysis 98.6 degF Temperature Post -Dialysis 97.8 degF April 22, 2025 In-Center Hemodialysis Treatment 6028-01-72R21:23:19.000Z 0767-12-44X92:56:14.000Z BP Sitting (Pre-Dialysis) 198/111 mmHg BP Sitting (Post-Dialysis) 156/87 mmHg Concurrent Access: falseCentral Venous Catheter (CVC) Chest (Left) Arterial Sitting Heart Rate Pre-Dialysis 98 BPM Sitting H eart Rate Post-Dialysis 96 BPM Temperature Pre-Dialysis 97.6 degF Temperature Post -Dialysis 98.2 degF April 20, 2025 In-Center Hemodialysis Treatment 6796-11-11Z73:08:00.000Z 8947-99-08Y26:06:59.000Z BP Sitting (Pre-Dialysis) 151/95 mmHg BP Sitting (Post-Dialysis) 162/83 mmHg Concurrent Access: falseCentral Venous Catheter (CVC) Chest (Left) Arterial Sitting Heart Rate Pre-Dialysis 91 BPM Sitting H eart Rate Post-Dialysis 96 BPM Temperature Pre-Dialysis 98.2 degF Temperature Post -Dialysis 98 degF April 15, 2025 In-Center Hemodialysis Treatment 9772-55-12P10:12:16.000Z 5991-83-37G70:29:21.000Z BP Sitting (Pre-Dialysis) 192/103 mmHg BP Sitting (Post-Dialysis) 128/77 mmHg Concurrent Access: falseCentral Venous Catheter (CVC) Chest (Left) Arterial Sitting Heart Rate Pre-Dialysis 90 BPM Sitting H eart Rate Post-Dialysis 94 BPM Temperature Pre-Dialysis 98 degF Temperature Post -Dialysis 98.4 degF April 13, 2025 In-Center Hemodialysis Treatment 2397-00-85D30:22:25.000Z 3903-04-80E64:36:10.000Z BP Sitting (Pre-Dialysis) 230/126 mmHg BP Sitting (Post-Dialysis) 155/97 mmHg Concurrent Access: falseCentral Venous Catheter (CVC) Chest (Left) Arterial Sitting Heart Rate Pre-Dialysis 84 BPM Sitting H eart Rate Post-Dialysis 85 BPM Temperature Pre-Dialysis 98.2 degF Temperature Post -Dialysis 98.3 degF April 08, 2025 In-Center Hemodialysis Treatment 4540-11-22V99:13:54.000Z 7947-72-10S52:13:54.000Z BP Sitting (Pre-Dialysis) 166/98 mmHg BP Sitting (Post-Dialysis) 190/110 mmHg Concurrent Access: falseCentral Venous Catheter (CVC) Chest (Left) Arterial Sitting Heart Rate Pre-Dialysis 91 BPM Sitting H eart Rate Post-Dialysis 85 BPM Temperature Pre-Dialysis 97.8 degF Temperature Post -Dialysis 98.3 degF April 06, 2025 In-Center Hemodialysis Treatment 6380-30-49E32:23:11.000Z 4919-23-35V51:33:36.000Z BP Sitting (Pre-Dialysis) 190/108 mmHg BP Sitting (Post-Dialysis) 164/103 mmHg Concurrent Access: falseCentral Venous Catheter (CVC) Chest (Left) Arterial Sitting Heart Rate Pre-Dialysis 87 BPM Sitting H eart Rate Post-Dialysis 81 BPM Temperature Pre-Dialysis 98 degF Temperature Post -Dialysis 98 degF April 04, 2025 In-Center Hemodialysis Treatment 5350-29-33D83:15:00.000Z 9832-84-03G03:11:12.000Z BP Sitting (Pre-Dialysis) 197/108 mmHg BP Sitting (Post-Dialysis) 83/51 mmHg Concurrent Access: falseCentral Venous Catheter (CVC) Chest (Left) Arterial Sitting Heart Rate Pre-Dialysis 93 BPM Sitting H eart Rate Post-Dialysis 97 BPM Temperature Pre-Dialysis 97.2 degF Temperature Post -Dialysis 98.2 degF April 01, 2025 In-Center Hemodialysis Treatment 0933-35-46Q67:24:00.000Z 9601-95-00J60:37:21.000Z BP Sitting (Pre-Dialysis) 133/83 mmHg BP Sitting (Post-Dialysis) 158/90 mmHg Concurrent Access: falseCentral Venous Catheter (CVC) Chest (Left) Arterial Sitting Heart Rate Pre-Dialysis 83 BPM Sitting H eart Rate Post-Dialysis 81 BPM Temperature Pre-Dialysis 97.9 degF Temperature Post -Dialysis 98.1 degF March 25, 2025 In-Center Hemodialysis Treatment 8713-79-03V23:25:07.000Z 4887-06-92L13:25:07.000Z BP Sitting (Pre-Dialysis) 193/111 mmHg BP Sitting (Post-Dialysis) 162/102 mmHg Concurrent Access: falseCentral Venous Catheter (CVC) Chest (Left) Arterial Sitting Heart Rate Pre-Dialysis 97 BPM Sitting H eart Rate Post-Dialysis 92 BPM Temperature Pre-Dialysis 98 degF Temperature Post -Dialysis 98 degF March 21, 2025 In-Center Hemodialysis Treatment 6004-65-49L50:36:08.000Z 2543-04-32A82:32:23.000Z BP Sitting (Pre-Dialysis) 168/93 mmHg BP Sitting (Post-Dialysis) 133/76 mmHg Concurrent Access: falseCentral Venous Catheter (CVC) Chest (Left) Arterial Sitting Heart Rate Pre-Dialysis 88 BPM Sitting H eart Rate Post-Dialysis 91 BPM Temperature Pre-Dialysis 97.9 degF Temperature Post -Dialysis 97.4 degF March 16, 2025 In-Center Hemodialysis Treatment 3255-01-88A35:12:00.000Z 1289-71-15M63:37:52.000Z BP Sitting (Pre-Dialysis) 188/101 mmHg BP Sitting (Post-Dialysis) 131/84 mmHg Concurrent Access: falseCentral Venous Catheter (CVC) Chest (Left) Arterial Sitting Heart Rate Pre-Dialysis 92 BPM Sitting H eart Rate Post-Dialysis 89 BPM Temperature Pre-Dialysis 97.2 degF Temperature Post -Dialysis 97.8 degF March 14, 2025 In-Center Hemodialysis Treatment 2570-69-11A01:26:22.000Z 7089-72-66F89:42:37.000Z BP Sitting (Pre-Dialysis) 175/97 mmHg BP Sitting (Post-Dialysis) 107/104 mmHg Concurrent Access: falseCentral Venous Catheter (CVC) Chest (Left) Arterial Sitting Heart Rate Pre-Dialysis 89 BPM Sitting H eart Rate Post-Dialysis 88 BPM Temperature Pre-Dialysis 97.2 degF Temperature Post -Dialysis 98 degF March 11, 2025 In-Center Hemodialysis Treatment 7035-33-76R69:31:06.000Z 8423-61-81Q45:31:06.000Z BP Sitting (Pre-Dialysis) 146/87 mmHg BP Sitting (Post-Dialysis) 142/88 mmHg Concurrent Access: falseCentral Venous Catheter (CVC) Chest (Left) Arterial Sitting Heart Rate Pre-Dialysis 82 BPM Sitting H eart Rate Post-Dialysis 83 BPM Temperature Pre-Dialysis 97.9 degF March 09, 2025 In-Center Hemodialysis Treatment 7356-48-27W91:33:41.000Z 2098-98-74G68:42:01.000Z BP Sitting (Pre-Dialysis) 142/83 mmHg BP Sitting (Post-Dialysis) 131/73 mmHg Concurrent Access: falseCentral Venous Catheter (CVC) Chest (Left) Arterial Sitting Heart Rate Pre-Dialysis 85 BPM Sitting H eart Rate Post-Dialysis 84 BPM Temperature Pre-Dialysis 97.9 degF Temperature Post -Dialysis 98.6 degF March 04, 2025 In-Center Hemodialysis Treatment 5067-46-19H99:28:01.000Z 5229-22-57F24:34:16.000Z BP Sitting (Pre-Dialysis) 122/95 mmHg BP Sitting (Post-Dialysis) 158/95 mmHg Concurrent Access: falseCentral Venous Catheter (CVC) Chest (Left) Arterial Sitting Heart Rate Pre-Dialysis 95 BPM Sitting H eart Rate Post-Dialysis 91 BPM Temperature Pre-Dialysis 97.8 degF Temperature Post -Dialysis 98.3 degF March 02, 2025 In-Center Hemodialysis Treatment 0202-12-26W41:29:00.000Z 5722-98-27Z15:44:43.000Z BP Sitting (Pre-Dialysis) 181/96 mmHg BP Sitting (Post-Dialysis) 183/99 mmHg Concurrent Access: falseCentral Venous Catheter (CVC) Chest (Left) Arterial Sitting Heart Rate Pre-Dialysis 84 BPM Sitting H eart Rate Post-Dialysis 101 BPM Temperature Pre-Dialysis 98 degF Temperature Post -Dialysis 98.2 degF February 28, 2025 In-Center Hemodialysis Treatment 4557-24-39W58:32:00.000Z 2117-74-65L98:23:52.000Z BP Sitting (Pre-Dialysis) 199/112 mmHg BP Sitting (Post-Dialysis) 186/110 mmHg Concurrent Access: falseCentral Venous Catheter (CVC) Chest (Left) Arterial Sitting Heart Rate Pre-Dialysis 93 BPM Sitting H eart Rate Post-Dialysis 94 BPM Temperature Pre-Dialysis 98.1 degF Temperature Post -Dialysis 98.3 degF February 25, 2025 In-Center Hemodialysis Treatment 4558-38-40X28:31:00.000Z 4649-80-84N50:00:40.000Z BP Sitting (Pre-Dialysis) 171/95 mmHg BP Sitting (Post-Dialysis) 134/82 mmHg Concurrent Access: falseCentral Venous Catheter (CVC) Chest (Left) Arterial Sitting Heart Rate Pre-Dialysis 88 BPM Sitting H eart Rate Post-Dialysis 87 BPM Temperature Pre-Dialysis 98.5 degF Temperature Post -Dialysis 98 degF February 23, 2025 In-Center Hemodialysis Treatment 5476-37-70Q67:30:00.000Z 5224-44-23C36:33:31.000Z BP Sitting (Pre-Dialysis) 182/97 mmHg BP Sitting (Post-Dialysis) 180/112 mmHg Concurrent Access: falseCentral Venous Catheter (CVC) Chest (Left) Arterial Sitting Heart Rate Pre-Dialysis 87 BPM Sitting H eart Rate Post-Dialysis 87 BPM Temperature Pre-Dialysis 98.2 degF Temperature Post -Dialysis 98 degF February 16, 2025 In-Center Hemodialysis Treatment 7716-82-67M22:18:00.000Z 6347-12-78C53:20:00.000Z BP Sitting (Pre-Dialysis) 188/103 mmHg BP Sitting (Post-Dialysis) 170/102 mmHg Concurrent Access: falseCentral Venous Catheter (CVC) Chest (Left) Arterial Sitting Heart Rate Pre-Dialysis 89 BPM Sitting H eart Rate Post-Dialysis 86 BPM Temperature Pre-Dialysis 97.9 degF Temperature Post -Dialysis 98 degF February 11, 2025 In-Center Hemodialysis Treatment 9761-64-49U95:17:00.000Z 7720-10-39L87:20:21.000Z BP Sitting (Pre-Dialysis) 196/109 mmHg BP Sitting (Post-Dialysis) 181/117 mmHg Concurrent Access: falseCentral Venous Catheter (CVC) Chest (Left) Arterial Sitting Heart Rate Pre-Dialysis 97 BPM Sitting H eart Rate Post-Dialysis 94 BPM Temperature Pre-Dialysis 98.2 degF Temperature Post -Dialysis 97.8 degF February 07, 2025 In-Center Hemodialysis Treatment 2525-57-02K61:21:00.000Z 4971-53-26P02:24:57.000Z BP Sitting (Pre-Dialysis) 165/89 mmHg BP Sitting (Post-Dialysis) 133/71 mmHg Concurrent Access: falseCentral Venous Catheter (CVC) Chest (Left) Arterial Sitting Heart Rate Pre-Dialysis 91 BPM Sitting H eart Rate Post-Dialysis 89 BPM Temperature Pre-Dialysis 98.6 degF Temperature Post -Dialysis 98.4 degF February 04, 2025 In-Center Hemodialysis Treatment 8957-34-41G38:23:43.000Z 3471-47-87Z07:49:33.000Z BP Sitting (Pre-Dialysis) 139/81 mmHg BP Sitting (Post-Dialysis) 133/75 mmHg Concurrent Access: falseCentral Venous Catheter (CVC) Chest (Left) Arterial Sitting Heart Rate Pre-Dialysis 96 BPM Sitting H eart Rate Post-Dialysis 93 BPM Temperature Pre-Dialysis 98.3 degF Temperature Post -Dialysis 98.2 degF January 31, 2025 In-Center Hemodialysis Treatment 6410-04-72W84:04:00.000Z 5686-75-14D21:25:55.000Z BP Sitting (Pre-Dialysis) 191/105 mmHg BP Sitting (Post-Dialysis) 131/77 mmHg Concurrent Access: falseCentral Venous Catheter (CVC) Chest (Left) Arterial Sitting Heart Rate Pre-Dialysis 90 BPM Sitting H eart Rate Post-Dialysis 92 BPM Temperature Pre-Dialysis 98.2 degF Temperature Post -Dialysis 98.1 degF January 28, 2025 In-Center Hemodialysis Treatment 8021-31-82C55:12:00.000Z 4073-55-38R16:46:35.000Z BP Sitting (Pre-Dialysis) 145/88 mmHg BP Sitting (Post-Dialysis) 142/77 mmHg Concurrent Access: falseCentral Venous Catheter (CVC) Chest (Left) Arterial Sitting Heart Rate Pre-Dialysis 94 BPM Sitting H eart Rate Post-Dialysis 94 BPM Temperature Pre-Dialysis 97.8 degF Temperature Post -Dialysis 98 degF January 26, 2025 In-Center Hemodialysis Treatment 0138-34-72K59:29:00.000Z 4546-20-87F70:14:31.000Z BP Sitting (Pre-Dialysis) 104/66 mmHg BP Sitting (Post-Dialysis) 111/61 mmHg Concurrent Access: falseCentral Venous Catheter (CVC) Chest (Left) Arterial Sitting Heart Rate Pre-Dialysis 90 BPM Sitting H eart Rate Post-Dialysis 88 BPM Temperature Pre-Dialysis 97.6 degF Temperature Post -Dialysis 98.1 degF January 12, 2025 In-Center Hemodialysis Treatment 6231-05-32A06:16:47.000Z 8399-46-81X22:38:27.000Z BP Sitting (Pre-Dialysis) 177/101 mmHg BP Sitting (Post-Dialysis) 129/80 mmHg Concurrent Access: falseCentral Venous Catheter (CVC) Chest (Left) Arterial Sitting Heart Rate Pre-Dialysis 93 BPM Sitting H eart Rate Post-Dialysis 92 BPM Temperature Pre-Dialysis 98.8 degF Temperature Post -Dialysis 98 degF January 08, 2025 In-Center Hemodialysis Treatment 0147-12-90U61:06:37.000Z 8074-52-36Q97:37:02.000Z BP Sitting (Pre-Dialysis) 173/91 mmHg BP Sitting (Post-Dialysis) 136/74 mmHg Concurrent Access: falseCentral Venous Catheter (CVC) Chest (Left) Arterial Sitting Heart Rate Pre-Dialysis 96 BPM Sitting H eart Rate Post-Dialysis 90 BPM Temperature Pre-Dialysis 98.4 degF Temperature Post -Dialysis 97.4 degF January 05, 2025 In-Center Hemodialysis Treatment 8810-37-53N85:23:43.000Z 0744-06-15K04:04:08.000Z BP Sitting (Pre-Dialysis) 185/100 mmHg BP Sitting (Post-Dialysis) 126/57 mmHg Concurrent Access: falseCentral Venous Catheter (CVC) Chest (Left) Arterial Sitting Heart Rate Pre-Dialysis 91 BPM Sitting H eart Rate Post-Dialysis 89 BPM Temperature Pre-Dialysis 97.6 degF Temperature Post -Dialysis 98 degF January 03, 2025 In-Center Hemodialysis Treatment 4409-28-72H74:05:12.000Z 0764-23-82D67:34:47.000Z BP Sitting (Pre-Dialysis) 179/96 mmHg BP Sitting (Post-Dialysis) 126/77 mmHg Concurrent Access: falseCentral Venous Catheter (CVC) Chest (Left) Arterial Sitting Heart Rate Pre-Dialysis 97 BPM Sitting H eart Rate Post-Dialysis 89 BPM Temperature Pre-Dialysis 97.9 degF Temperature Post -Dialysis 97.5 degF December 31, 2024 In-Center Hemodialysis Treatment 8138-03-72C62:07:00.000Z 6222-45-26S27:38:45.000Z BP Sitting (Pre-Dialysis) 183/99 mmHg BP Sitting (Post-Dialysis) 148/52 mmHg Concurrent Access: falseCentral Venous Catheter (CVC) Chest (Left) Arterial Sitting Heart Rate Pre-Dialysis 93 BPM Sitting H eart Rate Post-Dialysis 86 BPM Temperature Pre-Dialysis 97.7 degF Temperature Post -Dialysis 98.1 degF December 29, 2024 In-Center Hemodialysis Treatment 0648-23-04C19:08:49.000Z 5582-88-49B59:33:49.000Z BP Sitting (Pre-Dialysis) 160/90 mmHg BP Sitting (Post-Dialysis) 109/73 mmHg Concurrent Access: falseCentral Venous Catheter (CVC) Chest (Left) Arterial Sitting Heart Rate Pre-Dialysis 91 BPM Sitting H eart Rate Post-Dialysis 88 BPM Temperature Pre-Dialysis 98.1 degF Temperature Post -Dialysis 97.9 degF December 27, 2024 In-Center Hemodialysis Treatment 2870-78-32C52:12:23.000Z 8741-42-02W64:46:33.000Z BP Sitting (Pre-Dialysis) 167/96 mmHg BP Sitting (Post-Dialysis) 141/76 mmHg Concurrent Access: falseCentral Venous Catheter (CVC) Chest (Left) Arterial Sitting Heart Rate Pre-Dialysis 94 BPM Sitting H eart Rate Post-Dialysis 89 BPM Temperature Pre-Dialysis 98.2 degF Temperature Post -Dialysis 97.9 degF December 24, 2024 In-Center Hemodialysis Treatment 4052-32-86K08:10:55.000Z 8900-44-12A43:10:30.000Z BP Sitting (Pre-Dialysis) 193/106 mmHg BP Sitting (Post-Dialysis) 137/78 mmHg Concurrent Access: falseCentral Venous Catheter (CVC) Chest (Left) Arterial Sitting Heart Rate Pre-Dialysis 89 BPM Sitting H eart Rate Post-Dialysis 86 BPM Temperature Pre-Dialysis 98 degF Temperature Post -Dialysis 97.7 degF December 22, 2024 In-Center Hemodialysis Treatment 5425-79-80N70:29:53.000Z 7246-53-16H14:52:48.000Z BP Sitting (Pre-Dialysis) 178/98 mmHg BP Sitting (Post-Dialysis) 137/79 mmHg Concurrent Access: falseCentral Venous Catheter (CVC) Chest (Left) Arterial Sitting Heart Rate Pre-Dialysis 91 BPM Sitting H eart Rate Post-Dialysis 89 BPM Temperature Pre-Dialysis 98.1 degF Temperature Post -Dialysis 97.2 degF December 20, 2024 In-Center Hemodialysis Treatment 1577-25-07B72:18:13.000Z 3932-29-75X35:45:10.000Z BP Sitting (Pre-Dialysis) 193/105 mmHg BP Sitting (Post-Dialysis) 138/92 mmHg Concurrent Access: falseCentral Venous Catheter (CVC) Chest (Left) Arterial Sitting Heart Rate Pre-Dialysis 100 BPM Sitting H eart Rate Post-Dialysis 94 BPM Temperature Pre-Dialysis 98.4 degF Temperature Post -Dialysis 97.7 degF December 17, 2024 In-Center Hemodialysis Treatment 7877-51-27T29:04:00.000Z 3499-88-50Y62:34:23.000Z BP Sitting (Pre-Dialysis) 146/85 mmHg BP Sitting (Post-Dialysis) 138/86 mmHg Concurrent Access: falseCentral Venous Catheter (CVC) Chest (Left) Arterial Sitting Heart Rate Pre-Dialysis 92 BPM Sitting H eart Rate Post-Dialysis 84 BPM Temperature Pre-Dialysis 98.4 degF Temperature Post -Dialysis 97.8 degF December 15, 2024 In-Center Hemodialysis Treatment 2773-05-29Y90:20:29.000Z 7324-06-46C70:46:44.000Z BP Sitting (Pre-Dialysis) 188/99 mmHg BP Sitting (Post-Dialysis) 102/64 mmHg Concurrent Access: falseCentral Venous Catheter (CVC) Chest (Left) Arterial Sitting Heart Rate Pre-Dialysis 94 BPM Sitting H eart Rate Post-Dialysis 90 BPM Temperature Pre-Dialysis 98.1 degF Temperature Post -Dialysis 98 degF December 13, 2024 In-Center Hemodialysis Treatment 1712-88-56D60:11:00.000Z 1230-13-80T33:46:26.000Z BP Sitting (Pre-Dialysis) 160/88 mmHg BP Sitting (Post-Dialysis) 104/59 mmHg Concurrent Access: falseCentral Venous Catheter (CVC) Chest (Left) Arterial Sitting Heart Rate Pre-Dialysis 93 BPM Sitting H eart Rate Post-Dialysis 93 BPM Temperature Pre-Dialysis 97.2 degF Temperature Post -Dialysis 97.9 degF December 10, 2024 In-Center Hemodialysis Treatment 1480-49-59T20:08:45.000Z 6412-56-63W90:38:20.000Z BP Sitting (Pre-Dialysis) 143/80 mmHg BP Sitting (Post-Dialysis) 116/69 mmHg Concurrent Access: falseCentral Venous Catheter (CVC) Chest (Left) Arterial Sitting Heart Rate Pre-Dialysis 91 BPM Sitting H eart Rate Post-Dialysis 85 BPM Temperature Pre-Dialysis 98.2 degF Temperature Post -Dialysis 98.3 degF December 08, 2024 In-Center Hemodialysis Treatment 0152-03-00B82:09:14.000Z 6428-10-14X78:47:00.000Z BP Sitting (Pre-Dialysis) 152/82 mmHg BP Sitting (Post-Dialysis) 109/66 mmHg Concurrent Access: falseCentral Venous Catheter (CVC) Chest (Left) Arterial Sitting Heart Rate Pre-Dialysis 91 BPM Sitting H eart Rate Post-Dialysis 89 BPM Temperature Pre-Dialysis 98 degF Temperature Post -Dialysis 97.7 degF December 06, 2024 In-Center Hemodialysis Treatment 4665-44-86V63:59:51.000Z 3587-12-62A07:30:41.000Z BP Sitting (Pre-Dialysis) 192/104 mmHg BP Sitting (Post-Dialysis) 134/83 mmHg Concurrent Access: falseCentral Venous Catheter (CVC) Chest (Left) Arterial Sitting Heart Rate Pre-Dialysis 94 BPM Sitting H eart Rate Post-Dialysis 91 BPM Temperature Pre-Dialysis 98.4 degF Temperature Post -Dialysis 97.3 degF December 03, 2024 In-Center Hemodialysis Treatment 6633-14-67J50:07:14.000Z 4227-73-01K22:41:49.000Z BP Sitting (Pre-Dialysis) 129/74 mmHg BP Sitting (Post-Dialysis) 138/79 mmHg Concurrent Access: falseCentral Venous Catheter (CVC) Chest (Left) Arterial Sitting Heart Rate Pre-Dialysis 78 BPM Sitting H eart Rate Post-Dialysis 85 BPM Temperature Pre-Dialysis 97.8 degF Temperature Post -Dialysis 97.8 degF December 01, 2024 In-Center Hemodialysis Treatment 2142-61-17Q58:08:48.000Z 9014-96-79P74:35:53.000Z BP Sitting (Pre-Dialysis) 157/68 mmHg BP Sitting (Post-Dialysis) 133/74 mmHg Concurrent Access: falseCentral Venous Catheter (CVC) Chest (Left) Arterial Sitting Heart Rate Pre-Dialysis 95 BPM Sitting H eart Rate Post-Dialysis 91 BPM Temperature Pre-Dialysis 98 degF Temperature Post -Dialysis 97.7 degF November 29, 2024 In-Center Hemodialysis Treatment 6808-40-87G93:13:39.000Z 4201-26-69V90:44:29.000Z BP Sitting (Pre-Dialysis) 180/100 mmHg BP Sitting (Post-Dialysis) 149/94 mmHg Concurrent Access: falseCentral Venous Catheter (CVC) Chest (Left) Arterial Sitting Heart Rate Pre-Dialysis 89 BPM Sitting H eart Rate Post-Dialysis 90 BPM Temperature Pre-Dialysis 98.1 degF Temperature Post -Dialysis 97.4 degF November 26, 2024 In-Center Hemodialysis Treatment 0109-07-48S03:11:00.000Z 0768-10-24R67:00:44.000Z BP Sitting (Pre-Dialysis) 178/95 mmHg BP Sitting (Post-Dialysis) 152/88 mmHg Concurrent Access: falseCentral Venous Catheter (CVC) Chest (Left) Arterial Sitting Heart Rate Pre-Dialysis 93 BPM Sitting H eart Rate Post-Dialysis 92 BPM Temperature Pre-Dialysis 97.8 degF Temperature Post -Dialysis 98 degF November 24, 2024 In-Center Hemodialysis Treatment 0699-76-85Z29:02:00.000Z 1840-06-89K14:08:28.000Z BP Sitting (Pre-Dialysis) 138/80 mmHg BP Sitting (Post-Dialysis) 97/49 mmHg Concurrent Access: falseCentral Venous Catheter (CVC) Chest (Left) Arterial Sitting Heart Rate Pre-Dialysis 97 BPM Sitting H eart Rate Post-Dialysis 94 BPM Temperature Pre-Dialysis 97.5 degF Temperature Post -Dialysis 97.2 degF November 22, 2024 In-Center Hemodialysis Treatment 8744-84-39D19:23:00.000Z 3896-72-66R42:55:22.000Z BP Sitting (Pre-Dialysis) 158/93 mmHg BP Sitting (Post-Dialysis) 100/61 mmHg Concurrent Access: falseCentral Venous Catheter (CVC) Chest (Left) Arterial Sitting Heart Rate Pre-Dialysis 95 BPM Sitting H eart Rate Post-Dialysis 94 BPM Temperature Pre-Dialysis 98.1 degF Temperature Post -Dialysis 97.6 degF November 19, 2024 In-Center Hemodialysis Treatment 1265-84-84U02:21:09.000Z 3069-60-25Z87:51:09.000Z BP Sitting (Pre-Dialysis) 169/98 mmHg BP Sitting (Post-Dialysis) 134/82 mmHg Concurrent Access: falseCentral Venous Catheter (CVC) Chest (Left) Arterial Sitting Heart Rate Pre-Dialysis 94 BPM Sitting H eart Rate Post-Dialysis 93 BPM Temperature Pre-Dialysis 98 degF Temperature Post -Dialysis 97.9 degF November 17, 2024 In-Center Hemodialysis Treatment 3763-54-48J15:14:00.000Z 5094-16-31E52:44:28.000Z BP Sitting (Pre-Dialysis) 158/88 mmHg BP Sitting (Post-Dialysis) 105/81 mmHg Concurrent Access: falseCentral Venous Catheter (CVC) Chest (Left) Arterial Sitting Heart Rate Pre-Dialysis 94 BPM Sitting H eart Rate Post-Dialysis 101 BPM Temperature Pre-Dialysis 97.6 degF Temperature Post -Dialysis 97.4 degF November 15, 2024 In-Center Hemodialysis Treatment 2284-20-41A83:20:00.000Z 8454-22-57W63:51:45.000Z BP Sitting (Pre-Dialysis) 177/103 mmHg BP Sitting (Post-Dialysis) 192/113 mmHg Concurrent Access: falseCentral Venous Catheter (CVC) Chest (Left) Arterial Sitting Heart Rate Pre-Dialysis 97 BPM Sitting H eart Rate Post-Dialysis 99 BPM Temperature Pre-Dialysis 98 degF Temperature Post -Dialysis 98.4 degF November 12, 2024 In-Center Hemodialysis Treatment [id number]:30:07.000Z 3459-81-44Z41:56:47.000Z BP Sitting (Pre-Dialysis) 144/86 mmHg BP Sitting (Post-Dialysis) 107/68 mmHg Concurrent Access: falseCentral Venous Catheter (CVC) Chest (Left) Arterial Sitting Heart Rate Pre-Dialysis 92 BPM Sitting H eart Rate Post-Dialysis 88 BPM Temperature Pre-Dialysis 98 degF Temperature Post -Dialysis 97.8 degF November 05, 2024 In-Center Hemodialysis Treatment 8104-39-47D94:11:00.000Z 0922-30-42D93:43:53.000Z BP Sitting (Pre-Dialysis) 165/96 mmHg BP Sitting (Post-Dialysis) 120/78 mmHg Concurrent Access: falseCentral Venous Catheter (CVC) Chest (Left) Arterial Sitting Heart Rate Pre-Dialysis 97 BPM Sitting H eart Rate Post-Dialysis 99 BPM Temperature Pre-Dialysis 98.2 degF Temperature Post -Dialysis 98 degF November 02, 2024 In-Center Hemodialysis Treatment 8013-91-31Z72:22:00.000Z 0300-71-92C42:21:56.000Z BP Sitting (Pre-Dialysis) 183/102 mmHg BP Sitting (Post-Dialysis) 131/84 mmHg Concurrent Access: falseCentral Venous Catheter (CVC) Chest (Left) Arterial Sitting Heart Rate Pre-Dialysis 92 BPM Sitting H eart Rate Post-Dialysis 94 BPM Temperature Pre-Dialysis 97.8 degF Temperature Post -Dialysis 98 degF October 29, 2024 In-Center Hemodialysis Treatment 8311-55-80E05:22:00.000Z 7620-70-92B76:52:27.000Z BP Sitting (Pre-Dialysis) 157/95 mmHg BP Sitting (Post-Dialysis) 112/51 mmHg Concurrent Access: falseCentral Venous Catheter (CVC) Chest (Left) Arterial Sitting Heart Rate Pre-Dialysis 86 BPM Sitting H eart Rate Post-Dialysis 92 BPM Temperature Pre-Dialysis 98.1 degF Temperature Post -Dialysis 97.9 degF October 28, 2024 In-Center Hemodialysis Treatment 8229-76-63N89:58:00.000Z 8504-19-16C05:46:19.000Z BP Sitting (Pre-Dialysis) 151/84 mmHg BP Sitting (Post-Dialysis) 121/81 mmHg Concurrent Access: falseCentral Venous Catheter (CVC) Chest (Left) Arterial Sitting Heart Rate Pre-Dialysis 91 BPM Sitting H eart Rate Post-Dialysis 95 BPM Temperature Pre-Dialysis 97.7 degF Temperature Post -Dialysis 97.8 degF October 25, 2024 In-Center Hemodialysis Treatment 4913-22-28N40:17:00.000Z 0031-58-95W36:41:35.000Z BP Sitting (Pre-Dialysis) 153/89 mmHg BP Sitting (Post-Dialysis) 123/64 mmHg Concurrent Access: falseCentral Venous Catheter (CVC) Chest (Left) Arterial Sitting Heart Rate Pre-Dialysis 86 BPM Sitting H eart Rate Post-Dialysis 95 BPM Temperature Pre-Dialysis 98.5 degF Temperature Post -Dialysis 97.9 degF October 22, 2024 In-Center Hemodialysis Treatment 4977-53-33R05:15:00.000Z 7977-22-30Z54:44:57.000Z BP Sitting (Pre-Dialysis) 154/86 mmHg BP Sitting (Post-Dialysis) 127/79 mmHg Concurrent Access: falseCentral Venous Catheter (CVC) Chest (Left) Arterial Sitting Heart Rate Pre-Dialysis 93 BPM Sitting H eart Rate Post-Dialysis 92 BPM Temperature Pre-Dialysis 98 degF Temperature Post -Dialysis 97.6 degF October 20, 2024 In-Center Hemodialysis Treatment 3204-41-20S17:32:00.000Z 9263-20-38H29:53:07.000Z BP Sitting (Pre-Dialysis) 142/88 mmHg BP Sitting (Post-Dialysis) 102/60 mmHg Concurrent Access: falseCentral Venous Catheter (CVC) Chest (Left) Arterial Sitting Heart Rate Pre-Dialysis 94 BPM Sitting H eart Rate Post-Dialysis 95 BPM Temperature Pre-Dialysis 98.4 degF Temperature Post -Dialysis 97.9 degF October 18, 2024 In-Center Hemodialysis Treatment 0606-16-53J92:30:13.000Z 8862-68-43F05:00:38.000Z BP Sitting (Pre-Dialysis) 172/99 mmHg BP Sitting (Post-Dialysis) 116/74 mmHg Concurrent Access: falseCentral Venous Catheter (CVC) Chest (Left) Arterial Sitting Heart Rate Pre-Dialysis 90 BPM Sitting H eart Rate Post-Dialysis 93 BPM Temperature Pre-Dialysis 98 degF Temperature Post -Dialysis 98 degF October 15, 2024 In-Center Hemodialysis Treatment 7184-26-49U29:04:00.000Z 0632-94-23I44:37:05.000Z BP Sitting (Pre-Dialysis) 155/92 mmHg BP Sitting (Post-Dialysis) 118/71 mmHg Concurrent Access: falseCentral Venous Catheter (CVC) Chest (Left) Arterial Sitting Heart Rate Pre-Dialysis 91 BPM Sitting H eart Rate Post-Dialysis 93 BPM Temperature Pre-Dialysis 98 degF Temperature Post -Dialysis 97.5 degF October 13, 2024 In-Center Hemodialysis Treatment 5081-65-78A75:32:14.000Z 5622-97-76O72:29:19.000Z BP Sitting (Pre-Dialysis) 161/93 mmHg BP Sitting (Post-Dialysis) 144/85 mmHg Concurrent Access: falseCentral Venous Catheter (CVC) Chest (Left) Arterial Sitting Heart Rate Pre-Dialysis 95 BPM Sitting H eart Rate Post-Dialysis 98 BPM Temperature Pre-Dialysis 98.5 degF Temperature Post -Dialysis 98 degF October 11, 2024 In-Center Hemodialysis Treatment 5166-44-63B13:21:00.000Z 1675-44-37T93:55:50.000Z BP Sitting (Pre-Dialysis) 172/101 mmHg BP Sitting (Post-Dialysis) 137/82 mmHg Concurrent Access: falseCentral Venous Catheter (CVC) Chest (Left) Arterial Sitting Heart Rate Pre-Dialysis 92 BPM Sitting H eart Rate Post-Dialysis 93 BPM Temperature Pre-Dialysis 98.2 degF Temperature Post -Dialysis 98.1 degF October 08, 2024 In-Center Hemodialysis Treatment 1903-92-07L78:15:00.000Z 3810-11-89N03:47:50.000Z BP Sitting (Pre-Dialysis) 155/92 mmHg BP Sitting (Post-Dialysis) 160/92 mmHg Concurrent Access: falseCentral Venous Catheter (CVC) Chest (Left) Arterial Sitting Heart Rate Pre-Dialysis 92 BPM Sitting H eart Rate Post-Dialysis 93 BPM Temperature Pre-Dialysis 98.1 degF Temperature Post -Dialysis 97.3 degF October 06, 2024 In-Center Hemodialysis Treatment 9285-77-10T27:23:52.000Z 8371-29-94I50:54:17.000Z BP Sitting (Pre-Dialysis) 164/95 mmHg BP Sitting (Post-Dialysis) 124/62 mmHg Concurrent Access: falseCentral Venous Catheter (CVC) Chest (Left) Arterial Sitting Heart Rate Pre-Dialysis 91 BPM Sitting H eart Rate Post-Dialysis 93 BPM Temperature Pre-Dialysis 98.3 degF Temperature Post -Dialysis 97.3 degF October 04, 2024 In-Center Hemodialysis Treatment 1130-46-51O97:13:00.000Z 7651-67-64Q31:45:00.000Z BP Sitting (Pre-Dialysis) 202/114 mmHg BP Sitting (Post-Dialysis) 167/104 mmHg Concurrent Access: falseCentral Venous Catheter (CVC) Chest (Left) Arterial Sitting Heart Rate Pre-Dialysis 99 BPM Sitting H eart Rate Post-Dialysis 99 BPM Temperature Pre-Dialysis 98.1 degF Temperature Post -Dialysis 98 degF September 28, 2024 In-Center Hemodialysis Treatment 8165-58-11Y16:29:14.000Z 8242-30-57I78:08:24.000Z BP Sitting (Pre-Dialysis) 162/95 mmHg BP Sitting (Post-Dialysis) 106/68 mmHg Concurrent Access: falseCentral Venous Catheter (CVC) Chest (Left) Arterial Sitting Heart Rate Pre-Dialysis 89 BPM Sitting H eart Rate Post-Dialysis 91 BPM Temperature Pre-Dialysis 98.4 degF Temperature Post -Dialysis 97.5 degF September 26, 2024 In-Center Hemodialysis Treatment 9210-24-44C93:47:00.000Z 4261-61-63D45:52:00.000Z BP Sitting (Pre-Dialysis) 155/93 mmHg BP Sitting (Post-Dialysis) 142/86 mmHg Concurrent Access: falseCentral Venous Catheter (CVC) Chest (Left) Arterial Sitting Heart Rate Pre-Dialysis 90 BPM Sitting H eart Rate Post-Dialysis 89 BPM Temperature Pre-Dialysis 98.3 degF Temperature Post -Dialysis 97.2 degF September 22, 2024 In-Center Hemodialysis Treatment 5331-11-42W81:13:17.000Z 1245-76-04N63:43:17.000Z BP Sitting (Pre-Dialysis) 143/85 mmHg BP Sitting (Post-Dialysis) 131/70 mmHg Concurrent Access: falseCentral Venous Catheter (CVC) Chest (Left) Arterial Sitting Heart Rate Pre-Dialysis 81 BPM Sitting H eart Rate Post-Dialysis 85 BPM Temperature Pre-Dialysis 96.4 degF Temperature Post -Dialysis 98.3 degF September 20, 2024 In-Center Hemodialysis Treatment 8177-39-99R77:23:27.000Z 3055-92-28H30:53:02.000Z BP Sitting (Pre-Dialysis) 144/84 mmHg BP Sitting (Post-Dialysis) 108/51 mmHg Concurrent Access: falseCentral Venous Catheter (CVC) Chest (Left) Arterial Sitting Heart Rate Pre-Dialysis 84 BPM Sitting H eart Rate Post-Dialysis 90 BPM Temperature Pre-Dialysis 98.2 degF Temperature Post -Dialysis 98 degF September 17, 2024 In-Center Hemodialysis Treatment 0011-60-60I79:30:38.000Z 7115-92-82Y03:16:28.000Z BP Sitting (Pre-Dialysis) 157/92 mmHg BP Sitting (Post-Dialysis) 121/64 mmHg Concurrent Access: falseCentral Venous Catheter (CVC) Chest (Left) Arterial Sitting Heart Rate Pre-Dialysis 90 BPM Sitting H eart Rate Post-Dialysis 82 BPM Temperature Pre-Dialysis 98 degF Temperature Post -Dialysis 98.1 degF September 15, 2024 In-Center Hemodialysis Treatment 5180-28-32J78:08:30.000Z 0990-57-11S05:06:00.000Z BP Sitting (Pre-Dialysis) 167/97 mmHg BP Sitting (Post-Dialysis) 106/91 mmHg Concurrent Access: falseCentral Venous Catheter (CVC) Chest (Left) Arterial Sitting Heart Rate Pre-Dialysis 82 BPM Sitting H eart Rate Post-Dialysis 82 BPM Temperature Pre-Dialysis 98 degF Temperature Post -Dialysis 97.4 degF September 13, 2024 In-Center Hemodialysis Treatment 0247-59-33N98:16:00.000Z 6100-20-15K07:47:30.000Z BP Sitting (Pre-Dialysis) 178/98 mmHg BP Sitting (Post-Dialysis) 171/84 mmHg Concurrent Access: falseCentral Venous Catheter (CVC) Chest (Left) Arterial Sitting Heart Rate Pre-Dialysis 82 BPM Sitting H eart Rate Post-Dialysis 81 BPM Temperature Pre-Dialysis 98.1 degF Temperature Post -Dialysis 98.2 degF September 10, 2024 In-Center Hemodialysis Treatment 9557-51-05H80:22:05.000Z 0889-70-53A87:51:40.000Z BP Sitting (Pre-Dialysis) 196/107 mmHg BP Sitting (Post-Dialysis) 119/65 mmHg Concurrent Access: falseCentral Venous Catheter (CVC) Chest (Left) Arterial Sitting Heart Rate Pre-Dialysis 87 BPM Sitting H eart Rate Post-Dialysis 73 BPM Temperature Pre-Dialysis 98 degF Temperature Post -Dialysis 98 degF September 08, 2024 In-Center Hemodialysis Treatment 3721-40-84I15:19:13.000Z 7533-10-33C50:48:23.000Z BP Sitting (Pre-Dialysis) 161/89 mmHg BP Sitting (Post-Dialysis) 110/68 mmHg Concurrent Access: falseCentral Venous Catheter (CVC) Chest (Left) Arterial Sitting Heart Rate Pre-Dialysis 86 BPM Sitting H eart Rate Post-Dialysis 88 BPM Temperature Pre-Dialysis 98.3 degF Temperature Post -Dialysis 97.4 degF September 06, 2024 In-Center Hemodialysis Treatment 3964-36-47C36:22:00.000Z 7482-60-51U58:53:14.000Z BP Sitting (Pre-Dialysis) 184/105 mmHg BP Sitting (Post-Dialysis) 166/102 mmHg Concurrent Access: falseCentral Venous Catheter (CVC) Chest (Left) Arterial Sitting Heart Rate Pre-Dialysis 85 BPM Sitting H eart Rate Post-Dialysis 81 BPM Temperature Pre-Dialysis 98 degF Temperature Post -Dialysis 97.3 degF September 03, 2024 In-Center Hemodialysis Treatment 9627-39-97I35:22:00.000Z 6728-44-96S62:37:28.000Z BP Sitting (Pre-Dialysis) 186/100 mmHg BP Sitting (Post-Dialysis) 111/71 mmHg Concurrent Access: falseCentral Venous Catheter (CVC) Chest (Left) Arterial Sitting Heart Rate Pre-Dialysis 86 BPM Sitting H eart Rate Post-Dialysis 69 BPM Temperature Pre-Dialysis 98.1 degF Temperature Post -Dialysis 97.6 degF August 25, 2024 In-Center Hemodialysis Treatment 4005-64-93X76:41:58.000Z 2943-20-60M50:14:53.000Z BP Sitting (Pre-Dialysis) 216/120 mmHg BP Sitting (Post-Dialysis) 210/115 mmHg Concurrent Access: falseCentral Venous Catheter (CVC) Chest (Left) Arterial Sitting Heart Rate Pre-Dialysis 98 BPM Sitting H eart Rate Post-Dialysis 106 BPM Temperature Pre-Dialysis 98 degF Temperature Post -Dialysis 98 degF August 23, 2024 In-Center Hemodialysis Treatment 4970-02-41K83:29:58.000Z 6603-98-57W55:59:33.000Z BP Sitting (Pre-Dialysis) 200/116 mmHg BP Sitting (Post-Dialysis) 200/117 mmHg Concurrent Access: falseCentral Venous Catheter (CVC) Chest (Left) Arterial Sitting Heart Rate Pre-Dialysis 100 BPM Sitting H eart Rate Post-Dialysis 99 BPM Temperature Pre-Dialysis 97.8 degF Temperature Post -Dialysis 98 degF August 20, 2024 In-Center Hemodialysis Treatment 0895-36-41C85:18:00.000Z 1739-79-21P00:53:25.000Z BP Sitting (Pre-Dialysis) 223/135 mmHg BP Sitting (Post-Dialysis) 167/102 mmHg Concurrent Access: falseCentral Venous Catheter (CVC) Chest (Left) Arterial Sitting Heart Rate Pre-Dialysis 101 BPM Sitting H eart Rate Post-Dialysis 93 BPM Temperature Pre-Dialysis 97.8 degF Temperature Post -Dialysis 98.2 degF August 18, 2024 In-Center Hemodialysis Treatment 0193-16-24W97:26:39.000Z 7562-12-21W88:02:29.000Z BP Sitting (Pre-Dialysis) 197/110 mmHg BP Sitting (Post-Dialysis) 216/130 mmHg Concurrent Access: falseCentral Venous Catheter (CVC) Chest (Left) Arterial Sitting Heart Rate Pre-Dialysis 98 BPM Sitting H eart Rate Post-Dialysis 102 BPM Temperature Pre-Dialysis 98.2 degF Temperature Post -Dialysis 97.4 degF August 16, 2024 In-Center Hemodialysis Treatment 0859-53-50G11:13:00.000Z 3120-14-11T52:40:00.000Z BP Sitting (Pre-Dialysis) 216/117 mmHg BP Sitting (Post-Dialysis) 156/110 mmHg Concurrent Access: falseCentral Venous Catheter (CVC) Chest (Left) Arterial Sitting Heart Rate Pre-Dialysis 93 BPM Sitting H eart Rate Post-Dialysis 92 BPM Temperature Pre-Dialysis 97.9 degF Temperature Post -Dialysis 97.2 degF August 14, 2024 In-Center Hemodialysis Treatment 8236-83-98U72:47:46.000Z 5969-80-40T52:18:11.000Z BP Sitting (Pre-Dialysis) 175/101 mmHg BP Sitting (Post-Dialysis) 151/97 mmHg Concurrent Access: falseCentral Venous Catheter (CVC) Chest (Left) Arterial Sitting Heart Rate Pre-Dialysis 81 BPM Sitting H eart Rate Post-Dialysis 86 BPM Temperature Pre-Dialysis 97.7 degF Temperature Post -Dialysis 98 degF August 12, 2024 In-Center Hemodialysis Treatment 0806-49-25E98:32:58.000Z 3467-59-56X83:02:58.000Z BP Sitting (Pre-Dialysis) 183/99 mmHg BP Sitting (Post-Dialysis) 145/89 mmHg Concurrent Access: falseCentral Venous Catheter (CVC) Chest (Left) Arterial Sitting Heart Rate Pre-Dialysis 87 BPM Sitting H eart Rate Post-Dialysis 88 BPM Temperature Pre-Dialysis 98 degF Temperature Post -Dialysis 98 degF August 10, 2024 In-Center Hemodialysis Treatment 0180-48-85K83:52:38.000Z 2473-24-16W80:23:28.000Z BP Sitting (Pre-Dialysis) 172/96 mmHg BP Sitting (Post-Dialysis) 172/95 mmHg Concurrent Access: falseCentral Venous Catheter (CVC) Chest (Left) Arterial Sitting Heart Rate Pre-Dialysis 87 BPM Sitting H eart Rate Post-Dialysis 85 BPM Temperature Pre-Dialysis 98.3 degF Temperature Post -Dialysis 97.9 degF July 24, 2024 In-Center Hemodialysis Treatment 5694-10-45F08:19:21.000Z 6294-71-08B99:57:41.000Z BP Sitting (Pre-Dialysis) 106/54 mmHg BP Sitting (Post-Dialysis) 135/72 mmHg Concurrent Access: falseCentral Venous Catheter (CVC) Chest (Left) Arterial Sitting Heart Rate Pre-Dialysis 98 BPM Sitting H eart Rate Post-Dialysis 94 BPM Temperature Pre-Dialysis 98.5 degF Temperature Post -Dialysis 98.1 degF July 22, 2024 In-Center Hemodialysis Treatment 1670-68-51R40:51:00.000Z 0336-23-92A35:22:14.000Z BP Sitting (Pre-Dialysis) 128/66 mmHg BP Sitting (Post-Dialysis) 116/69 mmHg Concurrent Access: falseCentral Venous Catheter (CVC) Chest (Left) Arterial Sitting Heart Rate Pre-Dialysis 101 BPM Sitting H eart Rate Post-Dialysis 100 BPM Temperature Pre-Dialysis 98.3 degF Temperature Post -Dialysis 97.9 degF July 20, 2024 In-Center Hemodialysis Treatment 3777-75-82K88:57:00.000Z 1469-65-01M92:45:01.000Z BP Sitting (Pre-Dialysis) 185/103 mmHg BP Sitting (Post-Dialysis) 187/102 mmHg Concurrent Access: falseCentral Venous Catheter (CVC) Chest (Left) Arterial Sitting Heart Rate Pre-Dialysis 93 BPM Sitting H eart Rate Post-Dialysis 99 BPM Temperature Pre-Dialysis 98.1 degF Temperature Post -Dialysis 98 degF July 17, 2024 In-Center Hemodialysis Treatment 4769-03-45D71:43:00.000Z 1323-83-79H55:15:15.000Z BP Sitting (Pre-Dialysis) 141/85 mmHg BP Sitting (Post-Dialysis) 168/95 mmHg Concurrent Access: falseCentral Venous Catheter (CVC) Chest (Left) Arterial Sitting Heart Rate Pre-Dialysis 88 BPM Sitting H eart Rate Post-Dialysis 91 BPM Temperature Pre-Dialysis 97.7 degF Temperature Post -Dialysis 98 degF July 15, 2024 In-Center Hemodialysis Treatment 8349-97-47R42:39:00.000Z 6980-65-34G58:14:42.000Z BP Sitting (Pre-Dialysis) 165/95 mmHg BP Sitting (Post-Dialysis) 148/95 mmHg Concurrent Access: falseCentral Venous Catheter (CVC) Chest (Left) Arterial Sitting Heart Rate Pre-Dialysis 91 BPM Sitting H eart Rate Post-Dialysis 91 BPM Temperature Pre-Dialysis 97.6 degF Temperature Post -Dialysis 98 degF July 13, 2024 In-Center Hemodialysis Treatment 1718-55-97T39:41:48.000Z 7587-35-02Z37:13:28.000Z BP Sitting (Pre-Dialysis) 194/103 mmHg BP Sitting (Post-Dialysis) 155/99 mmHg Concurrent Access: falseCentral Venous Catheter (CVC) Chest (Left) Arterial Sitting Heart Rate Pre-Dialysis 88 BPM Sitting H eart Rate Post-Dialysis 92 BPM Temperature Pre-Dialysis 97.9 degF Temperature Post -Dialysis 97.8 degF July 10, 2024 In-Center Hemodialysis Treatment 6290-49-15C72:33:00.000Z 0285-30-68Y73:03:40.000Z BP Sitting (Pre-Dialysis) 195/112 mmHg BP Sitting (Post-Dialysis) 189/110 mmHg Concurrent Access: falseCentral Venous Catheter (CVC) Chest (Left) Arterial Sitting Heart Rate Pre-Dialysis 85 BPM Sitting H eart Rate Post-Dialysis 88 BPM Temperature Pre-Dialysis 98 degF Temperature Post -Dialysis 98 degF July 08, 2024 In-Center Hemodialysis Treatment 0955-85-54Y16:41:00.000Z 3188-41-07H23:25:44.000Z BP Sitting (Pre-Dialysis) 168/92 mmHg BP Sitting (Post-Dialysis) 181/105 mmHg Concurrent Access: falseCentral Venous Catheter (CVC) Chest (Left) Arterial Sitting Heart Rate Pre-Dialysis 86 BPM Sitting H eart Rate Post-Dialysis 88 BPM Temperature Pre-Dialysis 97.6 degF Temperature Post -Dialysis 97.6 degF July 06, 2024 In-Center Hemodialysis Treatment 7930-23-37U02:36:00.000Z 2830-76-74S41:54:40.000Z BP Sitting (Pre-Dialysis) 164/98 mmHg BP Sitting (Post-Dialysis) 212/125 mmHg Concurrent Access: falseCentral Venous Catheter (CVC) Chest (Left) Arterial Sitting Heart Rate Pre-Dialysis 79 BPM Sitting H eart Rate Post-Dialysis 82 BPM Temperature Pre-Dialysis 97.6 degF Temperature Post -Dialysis 97.8 degF July 03, 2024 In-Center Hemodialysis Treatment 9866-54-94D08:44:00.000Z 5820-23-65R72:11:18.000Z BP Sitting (Pre-Dialysis) 158/92 mmHg BP Sitting (Post-Dialysis) 190/116 mmHg Concurrent Access: falseCentral Venous Catheter (CVC) Chest (Left) Arterial Sitting Heart Rate Pre-Dialysis 82 BPM Sitting H eart Rate Post-Dialysis 83 BPM Temperature Pre-Dialysis 97.8 degF Temperature Post -Dialysis 97.1 degF July 01, 2024 In-Center Hemodialysis Treatment 9997-22-99A05:46:00.000Z 5405-79-98G79:12:18.000Z BP Sitting (Pre-Dialysis) 166/94 mmHg BP Sitting (Post-Dialysis) 163/96 mmHg Concurrent Access: falseCentral Venous Catheter (CVC) Chest (Left) Arterial Sitting Heart Rate Pre-Dialysis 78 BPM Sitting H eart Rate Post-Dialysis 81 BPM Temperature Pre-Dialysis 98.1 degF Temperature Post -Dialysis 97.8 degF June 29, 2024 In-Center Hemodialysis Treatment 1780-91-45E14:58:00.000Z 2144-61-65R18:01:18.000Z BP Sitting (Pre-Dialysis) 152/91 mmHg BP Sitting (Post-Dialysis) 161/99 mmHg Concurrent Access: falseCentral Venous Catheter (CVC) Chest (Left) Arterial Sitting Heart Rate Pre-Dialysis 84 BPM Sitting H eart Rate Post-Dialysis 82 BPM Temperature Pre-Dialysis 98 degF Temperature Post -Dialysis 97.6 degF June 26, 2024 In-Center Hemodialysis Treatment 8503-64-45H42:21:11.000Z 7509-94-73N70:51:11.000Z BP Sitting (Pre-Dialysis) 182/105 mmHg BP Sitting (Post-Dialysis) 183/102 mmHg Concurrent Access: falseCentral Venous Catheter (CVC) Chest (Left) Arterial Sitting Heart Rate Pre-Dialysis 89 BPM Sitting H eart Rate Post-Dialysis 89 BPM Temperature Pre-Dialysis 97.5 degF Temperature Post -Dialysis 97.2 degF June 24, 2024 In-Center Hemodialysis Treatment 7537-70-22H28:40:10.000Z 5020-63-99T43:12:40.000Z BP Sitting (Pre-Dialysis) 196/117 mmHg BP Sitting (Post-Dialysis) 203/117 mmHg Concurrent Access: falseCentral Venous Catheter (CVC) Chest (Left) Arterial Sitting Heart Rate Pre-Dialysis 84 BPM Sitting H eart Rate Post-Dialysis 90 BPM Temperature Pre-Dialysis 97.6 degF Temperature Post -Dialysis 98 degF June 22, 2024 In-Center Hemodialysis Treatment 6670-71-90Z90:27:00.000Z 8811-51-61U39:17:57.000Z BP Sitting (Pre-Dialysis) 173/102 mmHg BP Sitting (Post-Dialysis) 160/94 mmHg Concurrent Access: falseCentral Venous Catheter (CVC) Chest (Left) Arterial Sitting Heart Rate Pre-Dialysis 87 BPM Sitting H eart Rate Post-Dialysis 90 BPM Temperature Pre-Dialysis 98.4 degF Temperature Post -Dialysis 97.6 degF June 19, 2024 In-Center Hemodialysis Treatment 2811-01-35L70:21:58.000Z 5677-43-64I64:52:23.000Z BP Sitting (Pre-Dialysis) 187/104 mmHg BP Sitting (Post-Dialysis) 173/96 mmHg Concurrent Access: falseCentral Venous Catheter (CVC) Chest (Left) Arterial Sitting Heart Rate Pre-Dialysis 88 BPM Sitting H eart Rate Post-Dialysis 85 BPM Temperature Pre-Dialysis 97.9 degF Temperature Post -Dialysis 98 degF June 17, 2024 In-Center Hemodialysis Treatment 0773-75-72B97:24:00.000Z 3736-00-62A20:07:27.000Z BP Sitting (Pre-Dialysis) 152/94 mmHg BP Sitting (Post-Dialysis) 159/100 mmHg Concurrent Access: falseCentral Venous Catheter (CVC) Chest (Left) Arterial Sitting Heart Rate Pre-Dialysis 87 BPM Sitting H eart Rate Post-Dialysis 90 BPM Temperature Pre-Dialysis 98 degF Temperature Post -Dialysis 98 degF June 15, 2024 In-Center Hemodialysis Treatment 0396-37-89X35:45:50.000Z 1331-64-74V13:02:05.000Z BP Sitting (Pre-Dialysis) 179/99 mmHg BP Sitting (Post-Dialysis) 153/92 mmHg Concurrent Access: falseCentral Venous Catheter (CVC) Chest (Left) Arterial Sitting Heart Rate Pre-Dialysis 90 BPM Sitting H eart Rate Post-Dialysis 84 BPM Temperature Pre-Dialysis 98 degF Temperature Post -Dialysis 98 degF June 12, 2024 In-Center Hemodialysis Treatment 0116-99-97K21:20:00.000Z 5785-49-71J86:53:55.000Z BP Sitting (Pre-Dialysis) 163/91 mmHg BP Sitting (Post-Dialysis) 160/90 mmHg Concurrent Access: falseCentral Venous Catheter (CVC) Chest (Left) Arterial Sitting Heart Rate Pre-Dialysis 86 BPM Sitting H eart Rate Post-Dialysis 85 BPM Temperature Pre-Dialysis 98 degF Temperature Post -Dialysis 97.3 degF June 10, 2024 In-Center Hemodialysis Treatment 4365-32-43K65:49:42.000Z 3592-44-28V03:23:52.000Z BP Sitting (Pre-Dialysis) 191/103 mmHg BP Sitting (Post-Dialysis) 199/107 mmHg Concurrent Access: falseCentral Venous Catheter (CVC) Chest (Left) Arterial Sitting Heart Rate Pre-Dialysis 82 BPM Sitting H eart Rate Post-Dialysis 89 BPM Temperature Pre-Dialysis 98.2 degF Temperature Post -Dialysis 98.1 degF June 08, 2024 In-Center Hemodialysis Treatment 3145-24-96Y11:46:00.000Z 9107-05-69H48:20:00.000Z BP Sitting (Pre-Dialysis) 190/103 mmHg BP Sitting (Post-Dialysis) 187/103 mmHg Concurrent Access: falseCentral Venous Catheter (CVC) Chest (Left) Arterial Sitting Heart Rate Pre-Dialysis 81 BPM Sitting H eart Rate Post-Dialysis 87 BPM Temperature Pre-Dialysis 98 degF Temperature Post -Dialysis 97.7 degF June 05, 2024 In-Center Hemodialysis Treatment 5119-31-75R01:58:33.000Z 7204-40-59V83:28:58.000Z BP Sitting (Pre-Dialysis) 156/92 mmHg BP Sitting (Post-Dialysis) 151/91 mmHg Concurrent Access: falseCentral Venous Catheter (CVC) Chest (Left) Arterial Sitting Heart Rate Pre-Dialysis 96 BPM Sitting H eart Rate Post-Dialysis 91 BPM Temperature Pre-Dialysis 98.3 degF Temperature Post -Dialysis 98.3 degF May 13, 2024 In-Center Hemodialysis Treatment 6152-07-41F26:57:00.000Z 4009-99-14W19:04:02.000Z BP Sitting (Pre-Dialysis) 147/88 mmHg BP Sitting (Post-Dialysis) 153/96 mmHg Concurrent Access: falseCentral Venous Catheter (CVC) Chest (Left) Arterial Sitting Heart Rate Pre-Dialysis 94 BPM Sitting H eart Rate Post-Dialysis 92 BPM Temperature Pre-Dialysis 98 degF Temperature Post -Dialysis 97.2 degF May 11, 2024 In-Center Hemodialysis Treatment 4306-83-15O64:17:00.000Z 9217-81-52C50:55:06.000Z BP Sitting (Pre-Dialysis) 166/102 mmHg BP Sitting (Post-Dialysis) 191/113 mmHg Concurrent Access: falseCentral Venous Catheter (CVC) Chest (Left) Arterial Sitting Heart Rate Pre-Dialysis 92 BPM Sitting H eart Rate Post-Dialysis 87 BPM Temperature Pre-Dialysis 98 degF Temperature Post -Dialysis 98.1 degF May 08, 2024 In-Center Hemodialysis Treatment 4762-60-83P11:28:33.000Z 6814-73-81J23:53:33.000Z BP Sitting (Pre-Dialysis) 171/100 mmHg BP Sitting (Post-Dialysis) 135/87 mmHg Concurrent Access: falseCentral Venous Catheter (CVC) Chest (Left) Arterial Sitting Heart Rate Pre-Dialysis 97 BPM Sitting H eart Rate Post-Dialysis 87 BPM Temperature Pre-Dialysis 97.5 degF Temperature Post -Dialysis 98 degF May 06, 2024 In-Center Hemodialysis Treatment 1608-05-86V30:16:00.000Z 8591-07-97L31:29:17.000Z BP Sitting (Pre-Dialysis) 171/100 mmHg BP Sitting (Post-Dialysis) 169/91 mmHg Concurrent Access: falseCentral Venous Catheter (CVC) Chest (Left) Arterial Sitting Heart Rate Pre-Dialysis 97 BPM Sitting H eart Rate Post-Dialysis 95 BPM Temperature Pre-Dialysis 98 degF Temperature Post -Dialysis 97.7 degF May 04, 2024 In-Center Hemodialysis Treatment 3248-20-63Z26:51:00.000Z 0138-61-68L28:18:00.000Z BP Sitting (Pre-Dialysis) 158/97 mmHg BP Sitting (Post-Dialysis) 137/89 mmHg Concurrent Access: falseCentral Venous Catheter (CVC) Chest (Left) Arterial Sitting Heart Rate Pre-Dialysis 95 BPM Sitting H eart Rate Post-Dialysis 94 BPM Temperature Pre-Dialysis 98.3 degF Temperature Post -Dialysis 97.4 degF May 01, 2024 In-Center Hemodialysis Treatment 4328-43-88Q30:41:56.000Z 4263-65-10F82:04:51.000Z BP Sitting (Pre-Dialysis) 160/93 mmHg BP Sitting (Post-Dialysis) 165/93 mmHg Concurrent Access: falseCentral Venous Catheter (CVC) Chest (Left) Arterial Sitting Heart Rate Pre-Dialysis 86 BPM Sitting H eart Rate Post-Dialysis 94 BPM Temperature Pre-Dialysis 97.5 degF Temperature Post -Dialysis 97.6 degF April 29, 2024 In-Center Hemodialysis Treatment 4461-37-57M64:23:17.000Z 9314-71-39Z48:59:32.000Z BP Sitting (Pre-Dialysis) 183/103 mmHg BP Sitting (Post-Dialysis) 181/95 mmHg Concurrent Access: falseCentral Venous Catheter (CVC) Chest (Left) Arterial Sitting Heart Rate Pre-Dialysis 93 BPM Sitting H eart Rate Post-Dialysis 98 BPM Temperature Pre-Dialysis 98 degF Temperature Post -Dialysis 97.8 degF April 27, 2024 In-Center Hemodialysis Treatment 4459-31-76Y37:25:00.000Z 6485-42-17U92:05:12.000Z BP Sitting (Pre-Dialysis) 147/88 mmHg BP Sitting (Post-Dialysis) 153/89 mmHg Concurrent Access: falseCentral Venous Catheter (CVC) Chest (Left) Arterial Sitting Heart Rate Pre-Dialysis 94 BPM Sitting H eart Rate Post-Dialysis 93 BPM Temperature Pre-Dialysis 98 degF Temperature Post -Dialysis 97.8 degF April 24, 2024 In-Center Hemodialysis Treatment 0631-26-52V83:06:45.000Z 3369-05-09I05:41:45.000Z BP Sitting (Pre-Dialysis) 180/102 mmHg BP Sitting (Post-Dialysis) 167/74 mmHg Concurrent Access: falseCentral Venous Catheter (CVC) Chest (Left) Arterial Sitting Heart Rate Pre-Dialysis 97 BPM Sitting H eart Rate Post-Dialysis 85 BPM Temperature Pre-Dialysis 97.9 degF Temperature Post -Dialysis 97.6 degF April 22, 2024 In-Center Hemodialysis Treatment 9220-93-49H18:17:04.000Z 8940-84-85X39:58:44.000Z BP Sitting (Pre-Dialysis) 175/114 mmHg BP Sitting (Post-Dialysis) 144/84 mmHg Concurrent Access: falseCentral Venous Catheter (CVC) Chest (Left) Arterial Sitting Heart Rate Pre-Dialysis 102 BPM Sitting H eart Rate Post-Dialysis 95 BPM Temperature Pre-Dialysis 97.5 degF Temperature Post -Dialysis 97.6 degF April 20, 2024 In-Center Hemodialysis Treatment 2334-25-89X48:19:57.000Z 3149-45-38E79:49:32.000Z BP Sitting (Pre-Dialysis) 186/106 mmHg BP Sitting (Post-Dialysis) 185/106 mmHg Concurrent Access: falseCentral Venous Catheter (CVC) Chest (Left) Arterial Sitting Heart Rate Pre-Dialysis 96 BPM Sitting H eart Rate Post-Dialysis 96 BPM Temperature Pre-Dialysis 97.2 degF Temperature Post -Dialysis 97.5 degF April 17, 2024 In-Center Hemodialysis Treatment 1640-22-04W27:06:34.000Z 6974-00-33B33:41:34.000Z BP Sitting (Pre-Dialysis) 191/109 mmHg BP Sitting (Post-Dialysis) 190/100 mmHg Concurrent Access: falseCentral Venous Catheter (CVC) Chest (Left) Arterial Sitting Heart Rate Pre-Dialysis 94 BPM Sitting H eart Rate Post-Dialysis 93 BPM Temperature Pre-Dialysis 98.2 degF Temperature Post -Dialysis 97.4 degF April 15, 2024 In-Center Hemodialysis Treatment 3409-38-92A52:27:57.000Z 1894-08-73Y18:57:57.000Z BP Sitting (Pre-Dialysis) 194/113 mmHg BP Sitting (Post-Dialysis) 187/112 mmHg Concurrent Access: falseCentral Venous Catheter (CVC) Chest (Left) Arterial Sitting Heart Rate Pre-Dialysis 99 BPM Sitting H eart Rate Post-Dialysis 96 BPM Temperature Pre-Dialysis 97.5 degF Temperature Post -Dialysis 97.8 degF April 13, 2024 In-Center Hemodialysis Treatment 3917-34-37Q08:33:21.000Z 5432-61-02Z70:01:41.000Z BP Sitting (Pre-Dialysis) 218/118 mmHg BP Sitting (Post-Dialysis) 192/112 mmHg Concurrent Access: falseCentral Venous Catheter (CVC) Chest (Left) Arterial Sitting Heart Rate Pre-Dialysis 97 BPM Sitting H eart Rate Post-Dialysis 92 BPM Temperature Pre-Dialysis 98.2 degF Temperature Post -Dialysis 98 degF April 10, 2024 In-Center Hemodialysis Treatment 8459-47-25C55:30:27.000Z 4374-91-85Y55:00:27.000Z BP Sitting (Pre-Dialysis) 192/101 mmHg BP Sitting (Post-Dialysis) 172/103 mmHg Concurrent Access: falseCentral Venous Catheter (CVC) Chest (Left) Arterial Sitting Heart Rate Pre-Dialysis 96 BPM Sitting H eart Rate Post-Dialysis 96 BPM Temperature Pre-Dialysis 97.5 degF Temperature Post -Dialysis 97.6 degF April 08, 2024 In-Center Hemodialysis Treatment 0190-40-88W42:32:18.000Z 1259-35-04P14:07:18.000Z BP Sitting (Pre-Dialysis) 183/107 mmHg BP Sitting (Post-Dialysis) 183/105 mmHg Concurrent Access: falseCentral Venous Catheter (CVC) Chest (Left) Arterial Sitting Heart Rate Pre-Dialysis 96 BPM Sitting H eart Rate Post-Dialysis 90 BPM Temperature Pre-Dialysis 97 degF Temperature Post -Dialysis 98 degF April 06, 2024 In-Center Hemodialysis Treatment 8828-41-45P35:30:17.000Z 0093-23-63C98:00:16.000Z BP Sitting (Pre-Dialysis) 190/111 mmHg BP Sitting (Post-Dialysis) 203/108 mmHg Concurrent Access: falseCentral Venous Catheter (CVC) Chest (Left) Arterial Sitting Heart Rate Pre-Dialysis 92 BPM Sitting H eart Rate Post-Dialysis 89 BPM Temperature Pre-Dialysis 97.3 degF Temperature Post -Dialysis 98.1 degF April 03, 2024 In-Center Hemodialysis Treatment 1822-26-74F80:14:00.000Z 6509-44-01N83:47:12.000Z BP Sitting (Pre-Dialysis) 208/116 mmHg BP Sitting (Post-Dialysis) 216/123 mmHg Concurrent Access: falseCentral Venous Catheter (CVC) Chest (Left) Arterial Sitting Heart Rate Pre-Dialysis 92 BPM Sitting H eart Rate Post-Dialysis 92 BPM Temperature Pre-Dialysis 98.2 degF Temperature Post -Dialysis 97.5 degF April 01, 2024 In-Center Hemodialysis Treatment 4587-90-01X67:04:59.000Z 3051-58-78T81:03:19.000Z BP Sitting (Pre-Dialysis) 184/106 mmHg BP Sitting (Post-Dialysis) 178/104 mmHg Concurrent Access: falseCentral Venous Catheter (CVC) Chest (Left) Arterial Sitting Heart Rate Pre-Dialysis 94 BPM Sitting H eart Rate Post-Dialysis 91 BPM Temperature Pre-Dialysis 98.7 degF Temperature Post -Dialysis 98 degF March 30, 2024 In-Center Hemodialysis Treatment 0774-07-94L62:35:39.000Z 1453-37-90X27:04:24.000Z BP Sitting (Pre-Dialysis) 190/104 mmHg BP Sitting (Post-Dialysis) 184/109 mmHg Concurrent Access: falseCentral Venous Catheter (CVC) Chest (Left) Arterial Sitting Heart Rate Pre-Dialysis 97 BPM Sitting H eart Rate Post-Dialysis 93 BPM Temperature Pre-Dialysis 98.9 degF Temperature Post -Dialysis 97.3 degF March 27, 2024 In-Center Hemodialysis Treatment 6998-88-70N85:31:24.000Z 8820-72-72I07:59:44.000Z BP Sitting (Pre-Dialysis) 194/106 mmHg BP Sitting (Post-Dialysis) 185/105 mmHg Concurrent Access: falseCentral Venous Catheter (CVC) Chest (Left) Arterial Sitting Heart Rate Pre-Dialysis 92 BPM Sitting H eart Rate Post-Dialysis 89 BPM Temperature Pre-Dialysis 98.3 degF Temperature Post -Dialysis 98 degF March 25, 2024 In-Center Hemodialysis Treatment 7166-19-14Q81:20:00.000Z 2494-53-69S47:57:39.000Z BP Sitting (Pre-Dialysis) 188/105 mmHg BP Sitting (Post-Dialysis) 192/106 mmHg Concurrent Access: falseCentral Venous Catheter (CVC) Chest (Left) Arterial Sitting Heart Rate Pre-Dialysis 86 BPM Sitting H eart Rate Post-Dialysis 88 BPM Temperature Pre-Dialysis 98.1 degF Temperature Post -Dialysis 98 degF March 23, 2024 In-Center Hemodialysis Treatment 0781-07-71N19:18:00.000Z 2498-73-91Q65:50:04.000Z BP Sitting (Pre-Dialysis) 195/107 mmHg BP Sitting (Post-Dialysis) 198/107 mmHg Concurrent Access: falseCentral Venous Catheter (CVC) Chest (Left) Arterial Sitting Heart Rate Pre-Dialysis 89 BPM Sitting H eart Rate Post-Dialysis 87 BPM Temperature Pre-Dialysis 98.2 degF Temperature Post -Dialysis 98.2 degF March 20, 2024 In-Center Hemodialysis Treatment 4022-06-77K33:11:00.000Z 9579-87-58U06:33:00.000Z BP Sitting (Pre-Dialysis) 202/112 mmHg BP Sitting (Post-Dialysis) 198/111 mmHg Concurrent Access: falseCentral Venous Catheter (CVC) Chest (Left) Arterial Sitting Heart Rate Pre-Dialysis 88 BPM Sitting H eart Rate Post-Dialysis 88 BPM Temperature Pre-Dialysis 98 degF Temperature Post -Dialysis 98.2 degF March 18, 2024 In-Center Hemodialysis Treatment 7515-42-36C13:14:41.000Z 7762-79-82R58:46:46.000Z BP Sitting (Pre-Dialysis) 186/106 mmHg BP Sitting (Post-Dialysis) 172/134 mmHg Concurrent Access: falseCentral Venous Catheter (CVC) Chest (Left) Arterial Sitting Heart Rate Pre-Dialysis 89 BPM Sitting H eart Rate Post-Dialysis 89 BPM Temperature Pre-Dialysis 98.3 degF Temperature Post -Dialysis 98.1 degF March 16, 2024 In-Center Hemodialysis Treatment 8581-18-63X82:53:00.000Z 9096-99-19X63:26:39.000Z BP Sitting (Pre-Dialysis) 208/109 mmHg BP Sitting (Post-Dialysis) 201/111 mmHg Concurrent Access: falseCentral Venous Catheter (CVC) Chest (Left) Arterial Sitting Heart Rate Pre-Dialysis 90 BPM Sitting H eart Rate Post-Dialysis 89 BPM Temperature Pre-Dialysis 98.2 degF Temperature Post -Dialysis 98.1 degF March 13, 2024 In-Center Hemodialysis Treatment 4931-47-79H57:47:34.000Z 1126-76-62M15:17:00.000Z BP Sitting (Pre-Dialysis) 185/100 mmHg BP Sitting (Post-Dialysis) 197/101 mmHg Concurrent Access: falseCentral Venous Catheter (CVC) Chest (Left) Arterial Sitting Heart Rate Pre-Dialysis 86 BPM Sitting H eart Rate Post-Dialysis 90 BPM Temperature Pre-Dialysis 98 degF Temperature Post -Dialysis 97.7 degF March 11, 2024 In-Center Hemodialysis Treatment 7044-65-04L94:45:00.000Z 4531-73-33H32:18:03.000Z BP Sitting (Pre-Dialysis) 169/98 mmHg BP Sitting (Post-Dialysis) 184/101 mmHg Concurrent Access: falseCentral Venous Catheter (CVC) Chest (Left) Arterial Sitting Heart Rate Pre-Dialysis 83 BPM Sitting H eart Rate Post-Dialysis 85 BPM Temperature Pre-Dialysis 97.9 degF Temperature Post -Dialysis 97.4 degF March 09, 2024 In-Center Hemodialysis Treatment 1532-56-07E71:27:00.000Z 1423-95-45C66:59:53.000Z BP Sitting (Pre-Dialysis) 153/87 mmHg BP Sitting (Post-Dialysis) 141/76 mmHg Concurrent Access: falseCentral Venous Catheter (CVC) Chest (Left) Arterial Sitting Heart Rate Pre-Dialysis 80 BPM Sitting H eart Rate Post-Dialysis 83 BPM Temperature Pre-Dialysis 98.4 degF Temperature Post -Dialysis 97.4 degF March 06, 2024 In-Center Hemodialysis Treatment 8498-20-05Z00:40:00.000Z 5229-59-23G50:30:13.000Z BP Sitting (Pre-Dialysis) 144/74 mmHg BP Sitting (Post-Dialysis) 169/89 mmHg Concurrent Access: falseCentral Venous Catheter (CVC) Chest (Left) Arterial Sitting Heart Rate Pre-Dialysis 82 BPM Sitting H eart Rate Post-Dialysis 81 BPM Temperature Pre-Dialysis 98.2 degF Temperature Post -Dialysis 97.6 degF March 04, 2024 In-Center Hemodialysis Treatment 8278-07-15D23:45:58.000Z 9000-20-98S63:42:38.000Z BP Sitting (Pre-Dialysis) 133/73 mmHg BP Sitting (Post-Dialysis) 148/87 mmHg Concurrent Access: falseCentral Venous Catheter (CVC) Chest (Left) Arterial Sitting Heart Rate Pre-Dialysis 84 BPM Sitting H eart Rate Post-Dialysis 77 BPM Temperature Pre-Dialysis 97.9 degF Temperature Post -Dialysis 98.1 degF February 14, 2024 In-Center Hemodialysis Treatment 2455-29-46K29:28:15.000Z 0561-54-54M19:28:15.000Z BP Sitting (Pre-Dialysis) 150/82 mmHg BP Sitting (Post-Dialysis) 188/108 mmHg Concurrent Access: falseCentral Venous Catheter (CVC) Chest (Left) Arterial Sitting Heart Rate Pre-Dialysis 91 BPM Sitting H eart Rate Post-Dialysis 92 BPM Temperature Pre-Dialysis 97.6 degF Temperature Post -Dialysis 97.3 degF February 12, 2024 In-Center Hemodialysis Treatment 9180-96-92N19:54:00.000Z 8264-49-42O25:42:02.000Z BP Sitting (Pre-Dialysis) 175/94 mmHg BP Sitting (Post-Dialysis) 153/90 mmHg Concurrent Access: falseCentral Venous Catheter (CVC) Chest (Left) Arterial Sitting Heart Rate Pre-Dialysis 94 BPM Sitting H eart Rate Post-Dialysis 93 BPM Temperature Pre-Dialysis 97.6 degF Temperature Post -Dialysis 97.2 degF February 10, 2024 In-Center Hemodialysis Treatment 5402-72-34Q17:48:00.000Z 3870-61-19I84:33:31.000Z BP Sitting (Pre-Dialysis) 166/91 mmHg BP Sitting (Post-Dialysis) 174/108 mmHg Concurrent Access: falseCentral Venous Catheter (CVC) Chest (Left) Arterial Sitting Heart Rate Pre-Dialysis 88 BPM Sitting H eart Rate Post-Dialysis 92 BPM Temperature Pre-Dialysis 97.7 degF February 07, 2024 In-Center Hemodialysis Treatment 5823-70-30A85:34:00.000Z 1167-06-35H69:20:48.000Z BP Sitting (Pre-Dialysis) 142/87 mmHg BP Sitting (Post-Dialysis) 132/71 mmHg Concurrent Access: falseCentral Venous Catheter (CVC) Chest (Left) Arterial Sitting Heart Rate Pre-Dialysis 89 BPM Sitting H eart Rate Post-Dialysis 88 BPM Temperature Pre-Dialysis 98.2 degF Temperature Post -Dialysis 98.1 degF February 05, 2024 In-Center Hemodialysis Treatment 8759-45-48Y96:06:35.000Z 6182-79-45K37:25:20.000Z BP Sitting (Pre-Dialysis) 172/99 mmHg BP Sitting (Post-Dialysis) 167/98 mmHg Concurrent Access: falseCentral Venous Catheter (CVC) Chest (Left) Arterial Sitting Heart Rate Pre-Dialysis 90 BPM Sitting H eart Rate Post-Dialysis 94 BPM Temperature Pre-Dialysis 98 degF Temperature Post -Dialysis 97.3 degF February 03, 2024 In-Center Hemodialysis Treatment 6196-48-50I79:13:12.000Z 7102-36-48Y40:32:22.000Z BP Sitting (Pre-Dialysis) 164/94 mmHg BP Sitting (Post-Dialysis) 205/109 mmHg Concurrent Access: falseCentral Venous Catheter (CVC) Chest (Left) Arterial Sitting Heart Rate Pre-Dialysis 89 BPM Sitting H eart Rate Post-Dialysis 87 BPM Temperature Pre-Dialysis 98.3 degF Temperature Post -Dialysis 98.1 degF January 31, 2024 In-Center Hemodialysis Treatment 3906-58-62X26:28:51.000Z 0947-69-71Y98:29:14.000Z BP Sitting (Pre-Dialysis) 145/90 mmHg BP Sitting (Post-Dialysis) 140/87 mmHg Concurrent Access: falseCentral Venous Catheter (CVC) Chest (Left) Arterial Sitting Heart Rate Pre-Dialysis 90 BPM Sitting H eart Rate Post-Dialysis 90 BPM Temperature Pre-Dialysis 98.2 degF Temperature Post -Dialysis 98 degF January 29, 2024 In-Center Hemodialysis Treatment 0740-15-58V30:33:08.000Z 4007-91-59G52:31:28.000Z BP Sitting (Pre-Dialysis) 182/106 mmHg BP Sitting (Post-Dialysis) 189/103 mmHg Concurrent Access: falseCentral Venous Catheter (CVC) Chest (Left) Arterial Sitting Heart Rate Pre-Dialysis 96 BPM Sitting H eart Rate Post-Dialysis 96 BPM Temperature Pre-Dialysis 97.6 degF Temperature Post -Dialysis 97.8 degF January 27, 2024 In-Center Hemodialysis Treatment 4892-88-17X44:56:00.000Z 7669-64-51L20:30:50.000Z BP Sitting (Pre-Dialysis) 169/89 mmHg BP Sitting (Post-Dialysis) 151/87 mmHg Concurrent Access: falseCentral Venous Catheter (CVC) Chest (Left) Arterial Sitting Heart Rate Pre-Dialysis 102 BPM Sitting H eart Rate Post-Dialysis 95 BPM Temperature Pre-Dialysis 97.9 degF Temperature Post -Dialysis 98.1 degF January 24, 2024 In-Center Hemodialysis Treatment 8823-23-10R48:35:00.000Z 6689-73-54E54:37:33.000Z BP Sitting (Pre-Dialysis) 126/71 mmHg BP Sitting (Post-Dialysis) 142/74 mmHg Concurrent Access: falseCentral Venous Catheter (CVC) Chest (Left) Arterial Sitting Heart Rate Pre-Dialysis 94 BPM Sitting H eart Rate Post-Dialysis 92 BPM Temperature Pre-Dialysis 98.2 degF Temperature Post -Dialysis 97.7 degF January 22, 2024 In-Center Hemodialysis Treatment 9772-79-40C41:32:00.000Z 1822-18-40B55:53:40.000Z BP Sitting (Pre-Dialysis) 153/94 mmHg Temperature Post-Dialysis 97.7 degF Concurrent Access: falseCentral Venous Catheter (CVC) Chest (Left) Arterial Sitting Heart Rate Pre-Dialysis 95 BPM Temperature Pre-Dialysis 97.7 degF January 20, 2024 In-Center Hemodialysis Treatment 0779-46-63C46:37:02.000Z 7742-15-20W43:36:37.000Z BP Sitting (Pre-Dialysis) 179/103 mmHg BP Sitting (Post-Dialysis) 129/76 mmHg Concurrent Access: falseCentral Venous Catheter (CVC) Chest (Left) Arterial Sitting Heart Rate Pre-Dialysis 97 BPM Sitting H eart Rate Post-Dialysis 96 BPM Temperature Pre-Dialysis 98.1 degF Temperature Post -Dialysis 97.7 degF January 17, 2024 In-Center Hemodialysis Treatment 0412-26-61F98:04:21.000Z 1590-74-54V15:01:00.000Z BP Sitting (Pre-Dialysis) 174/97 mmHg BP Sitting (Post-Dialysis) 152/90 mmHg Concurrent Access: falseCentral Venous Catheter (CVC) Chest (Left) Arterial Sitting Heart Rate Pre-Dialysis 89 BPM Sitting H eart Rate Post-Dialysis 91 BPM Temperature Pre-Dialysis 97.3 degF Temperature Post -Dialysis 98.4 degF January 15, 2024 In-Center Hemodialysis Treatment 5017-48-86P72:25:00.000Z 8559-77-17O15:26:37.000Z BP Sitting (Pre-Dialysis) 139/80 mmHg BP Sitting (Post-Dialysis) 118/63 mmHg Concurrent Access: falseCentral Venous Catheter (CVC) Chest (Left) Arterial Sitting Heart Rate Pre-Dialysis 91 BPM Sitting H eart Rate Post-Dialysis 92 BPM Temperature Pre-Dialysis 98 degF Temperature Post -Dialysis 97.4 degF January 13, 2024 In-Center Hemodialysis Treatment 4142-85-59L53:12:09.000Z 0261-45-60K39:24:39.000Z BP Sitting (Pre-Dialysis) 150/89 mmHg BP Sitting (Post-Dialysis) 138/82 mmHg Concurrent Access: falseCentral Venous Catheter (CVC) Chest (Left) Arterial Sitting Heart Rate Pre-Dialysis 91 BPM Sitting H eart Rate Post-Dialysis 90 BPM Temperature Pre-Dialysis 97.4 degF Temperature Post -Dialysis 97.3 degF January 10, 2024 In-Center Hemodialysis Treatment 0585-05-03C10:44:00.000Z 9987-88-37N61:03:46.000Z BP Sitting (Pre-Dialysis) 182/103 mmHg BP Sitting (Post-Dialysis) 157/95 mmHg Concurrent Access: falseCentral Venous Catheter (CVC) Chest (Left) Arterial Sitting Heart Rate Pre-Dialysis 85 BPM Sitting H eart Rate Post-Dialysis 88 BPM Temperature Pre-Dialysis 98 degF Temperature Post -Dialysis 97.3 degF January 06, 2024 In-Center Hemodialysis Treatment 2190-73-38S89:49:46.000Z 9376-46-79P36:20:36.000Z BP Sitting (Pre-Dialysis) 201/108 mmHg BP Sitting (Post-Dialysis) 173/97 mmHg Concurrent Access: falseCentral Venous Catheter (CVC) Chest (Left) Arterial Sitting Heart Rate Pre-Dialysis 100 BPM Sitting H eart Rate Post-Dialysis 86 BPM Temperature Pre-Dialysis 98.2 degF Temperature Post -Dialysis 97.1 degF January 03, 2024 In-Center Hemodialysis Treatment 2331-86-43T35:46:50.000Z 2193-56-18D19:46:25.000Z BP Sitting (Pre-Dialysis) 107/65 mmHg BP Sitting (Post-Dialysis) 95/58 mmHg Concurrent Access: falseCentral Venous Catheter (CVC) Chest (Left) Arterial Sitting Heart Rate Pre-Dialysis 71 BPM Sitting H eart Rate Post-Dialysis 59 BPM Temperature Pre-Dialysis 98 degF Temperature Post -Dialysis 97.1 degF January 01, 2024 In-Center Hemodialysis Treatment 1337-86-69R82:55:00.000Z 4107-50-22G04:19:35.000Z BP Sitting (Pre-Dialysis) 152/95 mmHg BP Sitting (Post-Dialysis) 127/73 mmHg Concurrent Access: falseCentral Venous Catheter (CVC) Chest (Left) Arterial Sitting Heart Rate Pre-Dialysis 75 BPM Sitting H eart Rate Post-Dialysis 72 BPM Temperature Pre-Dialysis 97.7 degF Temperature Post -Dialysis 97.3 degF December 30, 2023 In-Center Hemodialysis Treatment 1294-20-27W60:05:00.000Z 5282-54-24H53:29:15.000Z BP Sitting (Pre-Dialysis) 126/69 mmHg BP Sitting (Post-Dialysis) 118/60 mmHg Concurrent Access: falseCentral Venous Catheter (CVC) Chest (Left) Arterial Sitting Heart Rate Pre-Dialysis 71 BPM Sitting H eart Rate Post-Dialysis 73 BPM Temperature Pre-Dialysis 97.6 degF Temperature Post -Dialysis 97.6 degF December 27, 2023 In-Center Hemodialysis Treatment 5260-11-42X68:51:52.000Z 3459-71-02H87:51:27.000Z BP Sitting (Pre-Dialysis) 176/112 mmHg BP Sitting (Post-Dialysis) 158/99 mmHg Concurrent Access: falseCentral Venous Catheter (CVC) Chest (Left) Arterial Sitting Heart Rate Pre-Dialysis 90 BPM Sitting H eart Rate Post-Dialysis 84 BPM Temperature Pre-Dialysis 97.5 degF Temperature Post -Dialysis 97.7 degF December 25, 2023 In-Center Hemodialysis Treatment 1849-72-15T82:36:18.000Z 8750-31-08P34:36:18.000Z BP Sitting (Pre-Dialysis) 130/74 mmHg BP Sitting (Post-Dialysis) 106/63 mmHg Concurrent Access: falseCentral Venous Catheter (CVC) Chest (Left) Arterial Sitting Heart Rate Pre-Dialysis 77 BPM Sitting H eart Rate Post-Dialysis 70 BPM Temperature Pre-Dialysis 97.7 degF Temperature Post -Dialysis 98 degF December 23, 2023 In-Center Hemodialysis Treatment 8114-09-19Y69:20:00.000Z 4390-44-74X37:19:48.000Z BP Sitting (Pre-Dialysis) 137/76 mmHg BP Sitting (Post-Dialysis) 120/66 mmHg Concurrent Access: falseCentral Venous Catheter (CVC) Chest (Left) Arterial Sitting Heart Rate Pre-Dialysis 76 BPM Sitting H eart Rate Post-Dialysis 80 BPM Temperature Pre-Dialysis 97.8 degF Temperature Post -Dialysis 97.6 degF December 20, 2023 In-Center Hemodialysis Treatment 9248-58-41O39:04:00.000Z 5477-85-49V79:38:40.000Z BP Sitting (Pre-Dialysis) 135/77 mmHg BP Sitting (Post-Dialysis) 127/74 mmHg Concurrent Access: falseCentral Venous Catheter (CVC) Chest (Left) Arterial Sitting Heart Rate Pre-Dialysis 73 BPM Sitting H eart Rate Post-Dialysis 74 BPM Temperature Pre-Dialysis 98 degF Temperature Post -Dialysis 98.2 degF December 18, 2023 In-Center Hemodialysis Treatment 7505-99-57P11:58:52.000Z 2488-98-56D75:00:32.000Z BP Sitting (Pre-Dialysis) 140/84 mmHg BP Sitting (Post-Dialysis) 96/56 mmHg Concurrent Access: falseCentral Venous Catheter (CVC) Chest (Left) Arterial Sitting Heart Rate Pre-Dialysis 84 BPM Sitting H eart Rate Post-Dialysis 78 BPM Temperature Pre-Dialysis 97.3 degF Temperature Post -Dialysis 97.9 degF December 16, 2023 In-Center Hemodialysis Treatment 5968-37-08I25:13:00.000Z 4348-39-49W70:17:31.000Z BP Sitting (Pre-Dialysis) 175/102 mmHg BP Sitting (Post-Dialysis) 108/64 mmHg Concurrent Access: falseCentral Venous Catheter (CVC) Chest (Left) Arterial Sitting Heart Rate Pre-Dialysis 98 BPM Sitting H eart Rate Post-Dialysis 89 BPM Temperature Pre-Dialysis 98.1 degF Temperature Post -Dialysis 97.2 degF December 13, 2023 In-Center Hemodialysis Treatment 0776-34-36G32:27:50.000Z 9322-00-23V11:26:00.000Z BP Sitting (Pre-Dialysis) 175/100 mmHg BP Sitting (Post-Dialysis) 119/76 mmHg Concurrent Access: falseCentral Venous Catheter (CVC) Chest (Left) Arterial Sitting Heart Rate Pre-Dialysis 99 BPM Sitting H eart Rate Post-Dialysis 97 BPM Temperature Pre-Dialysis 97.9 degF Temperature Post -Dialysis 97.6 degF December 11, 2023 In-Center Hemodialysis Treatment 0857-28-78V62:58:49.000Z 3227-49-18Z73:07:34.000Z BP Sitting (Pre-Dialysis) 220/120 mmHg BP Sitting (Post-Dialysis) 162/103 mmHg Concurrent Access: falseCentral Venous Catheter (CVC) Chest (Left) Arterial Sitting Heart Rate Pre-Dialysis 95 BPM Sitting H eart Rate Post-Dialysis 94 BPM Temperature Pre-Dialysis 97.5 degF Temperature Post -Dialysis 97.6 degF December 09, 2023 In-Center Hemodialysis Treatment 0532-42-36J06:34:02.000Z 5619-17-25N39:34:02.000Z BP Sitting (Pre-Dialysis) 203/115 mmHg BP Sitting (Post-Dialysis) 198/111 mmHg Concurrent Access: falseCentral Venous Catheter (CVC) Chest (Left) Arterial Sitting Heart Rate Pre-Dialysis 91 BPM Sitting H eart Rate Post-Dialysis 91 BPM Temperature Pre-Dialysis 97.2 degF Temperature Post -Dialysis 98.1 degF December 06, 2023 In-Center Hemodialysis Treatment 9326-35-68P83:22:30.000Z 3420-46-30K37:23:20.000Z BP Sitting (Pre-Dialysis) 193/110 mmHg BP Sitting (Post-Dialysis) 161/101 mmHg Concurrent Access: falseCentral Venous Catheter (CVC) Chest (Left) Arterial Sitting Heart Rate Pre-Dialysis 84 BPM Sitting H eart Rate Post-Dialysis 85 BPM Temperature Pre-Dialysis 98.2 degF Temperature Post -Dialysis 98.3 degF December 04, 2023 In-Center Hemodialysis Treatment 8445-05-11F61:11:00.000Z 6533-21-74G53:33:05.000Z BP Sitting (Pre-Dialysis) 193/110 mmHg BP Sitting (Post-Dialysis) 177/81 mmHg Concurrent Access: falseCentral Venous Catheter (CVC) Chest (Left) Arterial Sitting Heart Rate Pre-Dialysis 91 BPM Sitting H eart Rate Post-Dialysis 85 BPM Temperature Pre-Dialysis 98.5 degF Temperature Post -Dialysis 97.6 degF December 02, 2023 In-Center Hemodialysis Treatment [id number]:00:07.000Z 3046-52-79F11:30:07.000Z BP Sitting (Pre-Dialysis) 177/104 mmHg BP Sitting (Post-Dialysis) 214/131 mmHg Concurrent Access: falseCentral Venous Catheter (CVC) Chest (Left) Arterial Sitting Heart Rate Pre-Dialysis 85 BPM Sitting H eart Rate Post-Dialysis 99 BPM Temperature Pre-Dialysis 97.7 degF Temperature Post -Dialysis 97.5 degF November 29, 2023 In-Center Hemodialysis Treatment [id number]:11:57.000Z 0804-25-61B63:54:02.000Z BP Sitting (Pre-Dialysis) 154/100 mmHg BP Sitting (Post-Dialysis) 198/121 mmHg Concurrent Access: falseCentral Venous Catheter (CVC) Chest (Left) Arterial Sitting Heart Rate Pre-Dialysis 86 BPM Sitting H eart Rate Post-Dialysis 86 BPM Temperature Pre-Dialysis 98.1 degF Temperature Post -Dialysis 97.7 degF November 27, 2023 In-Center Hemodialysis Treatment [id number]:08:51.000Z 1820-67-18I46:08:51.000Z BP Sitting (Pre-Dialysis) 167/98 mmHg BP Sitting (Post-Dialysis) 157/99 mmHg Concurrent Access: falseCentral Venous Catheter (CVC) Chest (Left) Arterial Sitting Heart Rate Pre-Dialysis 86 BPM Sitting H eart Rate Post-Dialysis 87 BPM Temperature Pre-Dialysis 98.2 degF Temperature Post -Dialysis 97.7 degF November 25, 2023 In-Center Hemodialysis Treatment 8319-44-01L03:24:00.000Z 2483-13-18G60:33:23.000Z BP Sitting (Pre-Dialysis) 163/94 mmHg BP Sitting (Post-Dialysis) 101/56 mmHg Concurrent Access: falseCentral Venous Catheter (CVC) Chest (Left) Arterial Sitting Heart Rate Pre-Dialysis 86 BPM Sitting H eart Rate Post-Dialysis 82 BPM Temperature Pre-Dialysis 97.2 degF Temperature Post -Dialysis 97.5 degF November 22, 2023 In-Center Hemodialysis Treatment 0439-95-09Z50:19:39.000Z 5748-16-73N27:22:59.000Z BP Sitting (Pre-Dialysis) 177/103 mmHg BP Sitting (Post-Dialysis) 150/83 mmHg Concurrent Access: falseCentral Venous Catheter (CVC) Chest (Left) Arterial Sitting Heart Rate Pre-Dialysis 86 BPM Sitting H eart Rate Post-Dialysis 84 BPM Temperature Pre-Dialysis 97.7 degF Temperature Post -Dialysis 97.6 degF November 20, 2023 In-Center Hemodialysis Treatment 3360-88-73G47:26:50.000Z 8455-27-69B05:26:50.000Z BP Sitting (Pre-Dialysis) 158/93 mmHg BP Sitting (Post-Dialysis) 164/98 mmHg Concurrent Access: falseCentral Venous Catheter (CVC) Chest (Left) Arterial Sitting Heart Rate Pre-Dialysis 85 BPM Sitting H eart Rate Post-Dialysis 84 BPM Temperature Pre-Dialysis 97.6 degF November 18, 2023 In-Center Hemodialysis Treatment 3514-61-64U60:39:20.000Z 5357-41-13N42:31:50.000Z BP Sitting (Pre-Dialysis) 166/97 mmHg BP Sitting (Post-Dialysis) 162/101 mmHg Concurrent Access: falseCentral Venous Catheter (CVC) Chest (Left) Arterial Sitting Heart Rate Pre-Dialysis 88 BPM Sitting H eart Rate Post-Dialysis 81 BPM Temperature Pre-Dialysis 96.7 degF Temperature Post -Dialysis 97.8 degF November 15, 2023 In-Center Hemodialysis Treatment 6936-41-93S79:14:00.000Z 9372-37-57L41:21:11.000Z BP Sitting (Pre-Dialysis) 193/106 mmHg BP Sitting (Post-Dialysis) 178/100 mmHg Concurrent Access: falseCentral Venous Catheter (CVC) Chest (Left) Arterial Sitting Heart Rate Pre-Dialysis 93 BPM Sitting H eart Rate Post-Dialysis 87 BPM Temperature Pre-Dialysis 97.9 degF Temperature Post -Dialysis 97.9 degF November 13, 2023 In-Center Hemodialysis Treatment 1230-10-62R83:17:11.000Z 4542-17-84A43:18:51.000Z BP Sitting (Pre-Dialysis) 193/110 mmHg BP Sitting (Post-Dialysis) 200/116 mmHg Concurrent Access: falseCentral Venous Catheter (CVC) Chest (Left) Arterial Sitting Heart Rate Pre-Dialysis 90 BPM Sitting H eart Rate Post-Dialysis 86 BPM Temperature Pre-Dialysis 97.5 degF Temperature Post -Dialysis 98.4 degF November 11, 2023 In-Center Hemodialysis Treatment 3784-83-51T58:08:00.000Z 1914-50-08N67:23:48.000Z BP Sitting (Pre-Dialysis) 180/102 mmHg BP Sitting (Post-Dialysis) 195/118 mmHg Concurrent Access: falseCentral Venous Catheter (CVC) Chest (Left) Arterial Sitting Heart Rate Pre-Dialysis 89 BPM Sitting H eart Rate Post-Dialysis 78 BPM Temperature Pre-Dialysis 98 degF Temperature Post -Dialysis 97.5 degF November 08, 2023 In-Center Hemodialysis Treatment 2760-20-22N37:28:03.000Z 2999-32-80J94:14:43.000Z BP Sitting (Pre-Dialysis) 178/102 mmHg BP Sitting (Post-Dialysis) 175/93 mmHg Concurrent Access: falseCentral Venous Catheter (CVC) Chest (Left) Arterial Sitting Heart Rate Pre-Dialysis 83 BPM Sitting H eart Rate Post-Dialysis 84 BPM Temperature Pre-Dialysis 98.2 degF Temperature Post -Dialysis 97.8 degF November 06, 2023 In-Center Hemodialysis Treatment 8919-37-54S87:02:32.000Z 0780-55-63X84:03:22.000Z BP Sitting (Pre-Dialysis) 190/102 mmHg BP Sitting (Post-Dialysis) 201/117 mmHg Concurrent Access: falseCentral Venous Catheter (CVC) Chest (Left) Arterial Sitting Heart Rate Pre-Dialysis 90 BPM Sitting H eart Rate Post-Dialysis 83 BPM Temperature Pre-Dialysis 98.4 degF Temperature Post -Dialysis 97.6 degF November 04, 2023 In-Center Hemodialysis Treatment 2431-41-99C08:47:00.000Z 3034-43-06S79:53:21.000Z BP Sitting (Pre-Dialysis) 175/110 mmHg BP Sitting (Post-Dialysis) 187/107 mmHg Concurrent Access: falseCentral Venous Catheter (CVC) Chest (Left) Arterial Sitting Heart Rate Pre-Dialysis 90 BPM Sitting H eart Rate Post-Dialysis 84 BPM Temperature Pre-Dialysis 97.6 degF Temperature Post -Dialysis 98 degF November 01, 2023 In-Center Hemodialysis Treatment 5704-28-54I07:27:22.000Z 1372-60-74W84:27:22.000Z BP Sitting (Pre-Dialysis) 184/102 mmHg BP Sitting (Post-Dialysis) 178/100 mmHg Concurrent Access: falseCentral Venous Catheter (CVC) Chest (Left) Arterial Sitting Heart Rate Pre-Dialysis 82 BPM Sitting H eart Rate Post-Dialysis 80 BPM Temperature Pre-Dialysis 98.1 degF Temperature Post -Dialysis 97.4 degF October 30, 2023 In-Center Hemodialysis Treatment 6955-63-24W24:37:00.000Z 9996-54-37Q66:41:26.000Z BP Sitting (Pre-Dialysis) 175/100 mmHg BP Sitting (Post-Dialysis) 147/89 mmHg Concurrent Access: falseCentral Venous Catheter (CVC) Chest (Left) Arterial Sitting Heart Rate Pre-Dialysis 79 BPM Sitting H eart Rate Post-Dialysis 80 BPM Temperature Pre-Dialysis 97.5 degF Temperature Post -Dialysis 98 degF October 26, 2023 In-Center Hemodialysis Treatment 6284-35-23C58:34:00.000Z 6925-14-07F92:42:47.000Z BP Sitting (Pre-Dialysis) 187/110 mmHg BP Sitting (Post-Dialysis) 182/100 mmHg Concurrent Access: falseCentral Venous Catheter (CVC) Chest (Left) Arterial Sitting Heart Rate Pre-Dialysis 87 BPM Sitting H eart Rate Post-Dialysis 83 BPM Temperature Pre-Dialysis 97.6 degF Temperature Post -Dialysis 98.1 degF October 23, 2023 In-Center Hemodialysis Treatment 2836-52-18B70:02:00.000Z 0009-10-13S16:36:49.000Z BP Sitting (Pre-Dialysis) 171/92 mmHg BP Sitting (Post-Dialysis) 169/109 mmHg Concurrent Access: falseCentral Venous Catheter (CVC) Chest (Left) Arterial Sitting Heart Rate Pre-Dialysis 82 BPM Sitting H eart Rate Post-Dialysis 80 BPM Temperature Pre-Dialysis 98.1 degF Temperature Post -Dialysis 97.7 degF October 21, 2023 In-Center Hemodialysis Treatment 2862-39-66K84:03:00.000Z 2652-88-93L21:07:32.000Z BP Sitting (Pre-Dialysis) 184/99 mmHg BP Sitting (Post-Dialysis) 176/101 mmHg Concurrent Access: falseCentral Venous Catheter (CVC) Chest (Left) Arterial Sitting Heart Rate Pre-Dialysis 88 BPM Sitting H eart Rate Post-Dialysis 85 BPM Temperature Pre-Dialysis 97.8 degF Temperature Post -Dialysis 98.2 degF October 18, 2023 In-Center Hemodialysis Treatment 8974-88-23K66:00:00.000Z 1984-79-49X51:31:42.000Z BP Sitting (Pre-Dialysis) 182/102 mmHg BP Sitting (Post-Dialysis) 180/109 mmHg Concurrent Access: falseCentral Venous Catheter (CVC) Chest (Left) Arterial Sitting Heart Rate Pre-Dialysis 84 BPM Sitting H eart Rate Post-Dialysis 84 BPM Temperature Pre-Dialysis 98 degF Temperature Post -Dialysis 97.9 degF October 16, 2023 In-Center Hemodialysis Treatment 1260-13-90B38:01:06.000Z 8142-90-97Z27:01:06.000Z BP Sitting (Pre-Dialysis) 184/106 mmHg BP Sitting (Post-Dialysis) 184/105 mmHg Concurrent Access: falseCentral Venous Catheter (CVC) Chest (Left) Arterial Sitting Heart Rate Pre-Dialysis 88 BPM Sitting H eart Rate Post-Dialysis 83 BPM Temperature Pre-Dialysis 97.9 degF Temperature Post -Dialysis 97.6 degF October 14, 2023 In-Center Hemodialysis Treatment 1769-55-96H94:19:58.000Z 2427-97-43K83:25:00.000Z BP Sitting (Pre-Dialysis) 170/97 mmHg BP Sitting (Post-Dialysis) 161/96 mmHg Concurrent Access: falseCentral Venous Catheter (CVC) Chest (Left) Arterial Sitting Heart Rate Pre-Dialysis 85 BPM Sitting H eart Rate Post-Dialysis 84 BPM Temperature Pre-Dialysis 97.9 degF Temperature Post -Dialysis 97.5 degF October 11, 2023 In-Center Hemodialysis Treatment 3186-71-68K12:17:44.000Z 6437-13-24E61:40:00.000Z BP Sitting (Pre-Dialysis) 176/103 mmHg BP Sitting (Post-Dialysis) 193/104 mmHg Concurrent Access: falseCentral Venous Catheter (CVC) Chest (Left) Arterial Sitting Heart Rate Pre-Dialysis 83 BPM Sitting H eart Rate Post-Dialysis 85 BPM Temperature Pre-Dialysis 98.2 degF Temperature Post -Dialysis 97.3 degF October 09, 2023 In-Center Hemodialysis Treatment 4302-50-75Y05:57:00.000Z 7334-25-22G91:59:09.000Z BP Sitting (Pre-Dialysis) 168/96 mmHg BP Sitting (Post-Dialysis) 107/71 mmHg Concurrent Access: falseCentral Venous Catheter (CVC) Chest (Left) Arterial Sitting Heart Rate Pre-Dialysis 86 BPM Sitting H eart Rate Post-Dialysis 86 BPM Temperature Pre-Dialysis 97.4 degF Temperature Post -Dialysis 97.6 degF October 07, 2023 In-Center Hemodialysis Treatment 8689-36-46D10:24:00.000Z 2507-63-82S05:30:16.000Z BP Sitting (Pre-Dialysis) 148/111 mmHg BP Sitting (Post-Dialysis) 119/80 mmHg Concurrent Access: falseCentral Venous Catheter (CVC) Chest (Left) Arterial Sitting Heart Rate Pre-Dialysis 79 BPM Sitting H eart Rate Post-Dialysis 81 BPM Temperature Pre-Dialysis 97.2 degF Temperature Post -Dialysis 98 degF October 02, 2023 In-Center Hemodialysis Treatment 2047-15-52L92:04:00.000Z 8907-53-30I93:18:18.000Z BP Sitting (Pre-Dialysis) 166/89 mmHg BP Sitting (Post-Dialysis) 160/101 mmHg Concurrent Access: falseCentral Venous Catheter (CVC) Chest (Left) Arterial Sitting Heart Rate Pre-Dialysis 84 BPM Sitting H eart Rate Post-Dialysis 81 BPM Temperature Pre-Dialysis 98 degF Temperature Post -Dialysis 98.3 degF September 30, 2023 In-Center Hemodialysis Treatment 5374-41-18T49:56:00.000Z 6536-82-48T05:20:28.000Z BP Sitting (Pre-Dialysis) 146/82 mmHg BP Sitting (Post-Dialysis) 112/60 mmHg Concurrent Access: falseCentral Venous Catheter (CVC) Chest (Left) Arterial Sitting Heart Rate Pre-Dialysis 82 BPM Sitting H eart Rate Post-Dialysis 79 BPM Temperature Pre-Dialysis 97.9 degF Temperature Post -Dialysis 97.7 degF September 26, 2023 In-Center Hemodialysis Treatment 2282-46-04I19:52:44.000Z 6918-67-39D57:55:14.000Z BP Sitting (Pre-Dialysis) 175/97 mmHg BP Sitting (Post-Dialysis) 186/106 mmHg Concurrent Access: falseCentral Venous Catheter (CVC) Chest (Left) Arterial Sitting Heart Rate Pre-Dialysis 84 BPM Sitting H eart Rate Post-Dialysis 84 BPM Temperature Pre-Dialysis 97.8 degF Temperature Post -Dialysis 97.4 degF September 24, 2023 In-Center Hemodialysis Treatment 1060-83-28R24:10:00.000Z 1002-92-79U50:12:22.000Z BP Sitting (Pre-Dialysis) 172/98 mmHg BP Sitting (Post-Dialysis) 165/107 mmHg Concurrent Access: falseCentral Venous Catheter (CVC) Chest (Left) Arterial Sitting Heart Rate Pre-Dialysis 75 BPM Sitting H eart Rate Post-Dialysis 77 BPM Temperature Pre-Dialysis 97.3 degF Temperature Post -Dialysis 97.8 degF September 22, 2023 In-Center Hemodialysis Treatment 0872-55-71F09:25:00.000Z 6264-95-43I40:29:18.000Z BP Sitting (Pre-Dialysis) 170/90 mmHg BP Sitting (Post-Dialysis) 160/86 mmHg Concurrent Access: falseCentral Venous Catheter (CVC) Chest (Left) Arterial Sitting Heart Rate Pre-Dialysis 80 BPM Sitting H eart Rate Post-Dialysis 79 BPM Temperature Pre-Dialysis 97.9 degF Temperature Post -Dialysis 98 degF September 20, 2023 In-Center Hemodialysis Treatment 4788-55-18N79:59:00.000Z 9965-51-00Q82:06:28.000Z BP Sitting (Pre-Dialysis) 161/91 mmHg BP Sitting (Post-Dialysis) 137/82 mmHg Concurrent Access: falseCentral Venous Catheter (CVC) Chest (Left) Arterial Sitting Heart Rate Pre-Dialysis 79 BPM Sitting H eart Rate Post-Dialysis 75 BPM Temperature Pre-Dialysis 97.9 degF Temperature Post -Dialysis 97.9 degF September 18, 2023 In-Center Hemodialysis Treatment 9335-08-77T90:27:42.000Z 3530-77-19Z80:44:47.000Z BP Sitting (Pre-Dialysis) 161/87 mmHg BP Sitting (Post-Dialysis) 158/87 mmHg Concurrent Access: falseCentral Venous Catheter (CVC) Chest (Left) Arterial Sitting Heart Rate Pre-Dialysis 75 BPM Sitting H eart Rate Post-Dialysis 76 BPM Temperature Pre-Dialysis 97.3 degF Temperature Post -Dialysis 97.9 degF 2023 In-Center Hemodialysis Treatment 8168-96-61W10:25:00.000Z 9410-29-46D48:37:26.000Z BP Sitting (Pre-Dialysis) 179/101 mmHg BP Sitting (Post-Dialysis) 171/93 mmHg Concurrent Access: falseCentral Venous Catheter (CVC) Chest (Left) Arterial Sitting Heart Rate Pre-Dialysis 76 BPM Sitting H eart Rate Post-Dialysis 77 BPM Temperature Pre-Dialysis 98.7 degF Temperature Post -Dialysis 98 degF September 13, 2023 In-Center Hemodialysis Treatment 9041-55-56M09:56:19.000Z 5911-46-39G52:01:19.000Z BP Sitting (Pre-Dialysis) 182/110 mmHg BP Sitting (Post-Dialysis) 162/93 mmHg Concurrent Access: falseCentral Venous Catheter (CVC) Chest (Left) Arterial Sitting Heart Rate Pre-Dialysis 77 BPM Sitting H eart Rate Post-Dialysis 77 BPM Temperature Pre-Dialysis 97.6 degF Temperature Post -Dialysis 97.9 degF September 11, 2023 In-Center Hemodialysis Treatment 1904-88-72Q18:33:41.000Z 9453-48-13P71:37:26.000Z BP Sitting (Pre-Dialysis) 155/89 mmHg BP Sitting (Post-Dialysis) 154/90 mmHg Concurrent Access: falseCentral Venous Catheter (CVC) Chest (Left) Arterial Sitting Heart Rate Pre-Dialysis 73 BPM Sitting H eart Rate Post-Dialysis 74 BPM Temperature Pre-Dialysis 97 degF Temperature Post -Dialysis 97 degF September 09, 2023 In-Center Hemodialysis Treatment 8883-38-12B55:30:00.000Z 1319-35-09H44:42:12.000Z BP Sitting (Pre-Dialysis) 174/101 mmHg BP Sitting (Post-Dialysis) 152/99 mmHg Concurrent Access: falseCentral Venous Catheter (CVC) Chest (Left) Arterial Sitting Heart Rate Pre-Dialysis 73 BPM Sitting H eart Rate Post-Dialysis 76 BPM Temperature Pre-Dialysis 97.8 degF Temperature Post -Dialysis 98.5 degF September 04, 2023 In-Center Hemodialysis Treatment 4408-68-98A38:19:21.000Z 2914-25-42V82:19:21.000Z BP Sitting (Pre-Dialysis) 169/56 mmHg BP Sitting (Post-Dialysis) 151/86 mmHg Concurrent Access: falseCentral Venous Catheter (CVC) Chest (Left) Arterial Sitting Heart Rate Pre-Dialysis 71 BPM Sitting H eart Rate Post-Dialysis 72 BPM Temperature Pre-Dialysis 97.9 degF Temperature Post -Dialysis 98.3 degF September 02, 2023 In-Center Hemodialysis Treatment 2883-73-46U94:09:11.000Z 2090-33-16H36:20:26.000Z BP Sitting (Pre-Dialysis) 187/101 mmHg BP Sitting (Post-Dialysis) 177/95 mmHg Concurrent Access: falseCentral Venous Catheter (CVC) Chest (Left) Arterial Sitting Heart Rate Pre-Dialysis 71 BPM Sitting H eart Rate Post-Dialysis 72 BPM Temperature Pre-Dialysis 97.3 degF Temperature Post -Dialysis 97.3 degF September 01, 2023 Sequential Treatment 2511-85-45T14:15:24.000Z 9486-95-04Y91:45:49.000Z BP Sitting (Pre-Dialysis) 183/103 mmHg BP Sitting (Post-Dialysis) 145/83 mmHg Concurrent Access: falseCentral Venous Catheter (CVC) Chest (Left) Arterial Sitting Heart Rate Pre-Dialysis 69 BPM Sitting H eart Rate Post-Dialysis 71 BPM Temperature Pre-Dialysis 98.4 degF Temperature Post -Dialysis 98 degF August 28, 2023 In-Center Hemodialysis Treatment 1138-45-96E57:15:41.000Z 8103-97-37L31:15:41.000Z BP Sitting (Pre-Dialysis) 169/92 mmHg BP Sitting (Post-Dialysis) 159/88 mmHg Concurrent Access: falseCentral Venous Catheter (CVC) Chest (Left) Arterial Sitting Heart Rate Pre-Dialysis 71 BPM Sitting H eart Rate Post-Dialysis 72 BPM Temperature Pre-Dialysis 98.2 degF Temperature Post -Dialysis 97.6 degF August 26, 2023 In-Center Hemodialysis Treatment [id number]:33:49.000Z 5657-73-87D47:49:13.000Z BP Sitting (Pre-Dialysis) 162/91 mmHg BP Sitting (Post-Dialysis) 140/79 mmHg Concurrent Access: falseCentral Venous Catheter (CVC) Chest (Left) Arterial Sitting Heart Rate Pre-Dialysis 70 BPM Sitting H eart Rate Post-Dialysis 68 BPM Temperature Pre-Dialysis 98 degF Temperature Post -Dialysis 98 degF DIALYSIS ORDER Dialysis Procedure Orders Type of Dialysis Procedure Order Order Date/Time Observations In-Center Hemodialysis Treatment [facility] 2024 Target Weight 120.2 kg Dialysate Flow Rate 800 mL/min Blood Flow Rate 400 mL/min Treatment Time 210 min(total) Max UF Rate 13 mL/kg/hr dialysate_temp 37 C BiCarb Dialysate BiCarbonate 30 mEq/L Access Concurrent No Arterial Access [facility] (CVC) (Chest (Left)) Venous Access [facility] (CVC) (Chest (Left)) Dialyzer Isidraro Juan 17H 145 5 [email or web address] Dialysate Bath Potassium Potassium 3 mEq /L Dialysate Bath Calcium Calcium 2.5 mEq/L [facility] Target Weight 120.2 kg Dialysate Flow Rate 800 mL/min Blood Flow Rate 400 mL/min Treatment Time 210 min(total) Max UF Rate 13 mL/kg/hr dialysate_temp 37 C BiCarb Dialysate BiCarbonate 30 mEq/L Access Concurrent No Arterial Access [facility] (CVC) (Chest (Left)) Venous Access [facility] (CVC) (Chest (Left)) Dialyzer Nipro Elisio 17H 145 5 [email or web address] Dialysate Bath Potassium Potassium 3 mEq /L Dialysate Bath Calcium Calcium 2.5 mEq/L In-Center Hemodialysis TreatmentSeptember 22, 2025 Observation Value Target Weight 115.5 kg Dialysate Flow Rate 800 mL/min Blood Flow Rate 400 mL/min Treatment Time 210 min(total) Max UF Rate 13 mL/kg/hr dialysate_temp 37 C BiCarb Dialysate BiCarbonate 30 mEq/L Access Concurrent No Arterial Access [facility] (CVC) (Chest (Left)) Venous Access [facility] (CVC) (Chest (Left)) Dialyzer Nipro Elisio 17H 145 5 [email or web address] Dialysate Bath Potassium Potassium 3 mEq /L Dialysate Bath Calcium Calcium 2.5 mEq/L Results Adequacy Description Draw Date Result/Unit Status Ref Range Result Comments Creatinine [Mass/volume] in Serum or Plasma 2025-10-20 16:23:13 10.85 mg/dL F 0.55-1.02 BSA [facility] 2025-10-11 20:39:53 2.16 sq m F TBW ([facility]) 2025-10-11 20:39:53 46.86 Liters F VT (KT/V TX VOL) 2025-10-11 20:39:53 39.8 L F WEIGHT - POST DAY 1 2025-10-11 20:39:53 128.6 kg F DIALYZER FLOW-QD 2025-10-11 20:39:53 800 mL/min F spKt/V 2025-10-11 20:39:53 1.56 F PATIENT AGE 2025-10-11 20:39:53 35 Years F CURRENT KRU 2025-10-11 20:39:53 F Unable to calculate: Pre BUN lab result is unknown stdKT/V Total 2025-10-11 20:39:53 N/A F TOTAL HOURS/WEEK DIALYSIS 2025-10-11 20:39:53 7 hrs F Dialyzer REJI 2025-10-11 20:39:53 1455 Calc F HEIGHT IN INCHES 2025-10-11 20:39:53 67 Inches F Total Kt/V 2025-10-11 20:39:53 1.56 F Std Renal KT/V 2025-10-11 20:39:53 N/A F BLOOD FLOW-QWB 2025-10-11 20:39:53 382 F stdKt/V (DIAL) 2025-10-11 20:39:53 N/A F nPCR 2025-10-11 20:39:53 0.95 G/KG/D F URR% 2025-10-11 20:39:53 73 % F LENGTH OF DIALYSIS 2025-10-11 20:39:53 211 min F VM (KT/V MEAN VOL) 2025-10-11 20:39:53 58 F Residual kt/v 2025-10-11 20:39:53 F Unable to calculate: Pre BUN lab result is unknown AMPUTATE FACTOR 2025-10-11 20:39:53 0.059 F PRESCRIBED DAYS/WEEK 2025-10-11 20:39:53 3 Day/Wk F KT/V PRESCRIBED 2025-10-11 20:39:53 1.76 F WEIGHT - PRE DAY 1 2025-10-11 20:39:53 133.4 kg F WEIGHT (KG) 2025-10-11 20:39:53 115.5 kg F eKt/V 2025-10-11 20:39:53 1.32 F Urea nitrogen [Mass/volume] in Serum or Plasma 2025-10-11 20:38:19 80 mg/dL F 9.0-23.0 Urea nitrogen [Mass/volume] in Serum or Plasma --post dialysis 2025-10-11 19:50:15 22 mg/dL F 9.0-23.0 Creatinine [Mass/volume] in Serum or Plasma 2025-09-22 18:20:21 7.27 mg/dL F 0.55-1.02 BSA [facility] 2025-09-13 19:19:07 2.16 sq m F nPCR 2025-09-13 19:19:07 1.16 G/KG/D F eKt/V 2025-09-13 19:19:07 1.09 F TBW ([facility]) 2025-09-13 19:19:07 48.54 Liters F PATIENT AGE 2025-09-13 19:19:07 34 Years F WEIGHT - PRE DAY 1 2025-09-13 19:19:07 139.6 kg F Std Renal KT/V 2025-09-13 19:19:07 N/A F stdKT/V Total 2025-09-13 19:19:07 N/A F AMPUTATE FACTOR 2025-09-13 19:19:07 0.059 F Residual kt/v 2025-09-13 19:19:07 F WEIGHT (KG) 2025-09-13 19:19:07 115.5 kg F HEIGHT IN INCHES 2025-09-13 19:19:07 67 Inches F DIALYZER FLOW-QD 2025-09-13 19:19:07 800 mL/min F WEIGHT - POST DAY 1 2025-09-13 19:19:07 135.4 kg F VT (KT/V TX VOL) 2025-09-13 19:19:07 48.6 L F LENGTH OF DIALYSIS 2025-09-13 19:19:07 209 min F spKt/V 2025-09-13 19:19:07 1.27 F stdKt/V (DIAL) 2025-09-13 19:19:07 N/A F TOTAL HOURS/WEEK DIALYSIS 2025-09-13 19:19:07 9 hrs F VM (KT/V MEAN VOL) 2025-09-13 19:19:07 58 F BLOOD FLOW-QWB 2025-09-13 19:19:07 385 F Total Kt/V 2025-09-13 19:19:07 1.27 F CURRENT KRU 2025-09-13 19:19:07 F PRESCRIBED DAYS/WEEK 2025-09-13 19:19:07 3 Day/Wk F URR% 2025-09-13 19:19:07 65 % F KT/V PRESCRIBED 2025-09-13 19:19:07 1.75 F Dialyzer REJI 2025-09-13 19:19:07 1455 Calc F URR% 2025-09-13 19:19:07 65 % F Dialyzer REJI 2025-09-13 19:19:07 1455 Calc F DIALYZER FLOW-QD 2025-09-13 19:19:07 800 mL/min F LENGTH OF DIALYSIS 2025-09-13 19:19:07 209 min F BSA [place] 2025-09-13 19:19:07 2.16 sq m F WEIGHT - POST DAY 1 2025-09-13 19:19:07 135.4 kg F PATIENT AGE 2025-09-13 19:19:07 34 Years F HEIGHT IN INCHES 2025-09-13 19:19:07 67 Inches F WEIGHT (KG) 2025-09-13 19:19:07 115.5 kg F WEIGHT - PRE DAY 1 2025-09-13 19:19:07 139.6 kg F PRESCRIBED DAYS/WEEK 2025-09-13 19:19:07 3 Day/Wk F VT (KT/V TX VOL) 2025-09-13 19:19:07 48.6 L F VM (KT/V MEAN VOL) 2025-09-13 19:19:07 58 F KT/V PRESCRIBED 2025-09-13 19:19:07 1.75 F Residual kt/v 2025-09-13 19:19:07 F AMPUTATE FACTOR 2025-09-13 19:19:07 0.059 F nPCR 2025-09-13 19:19:07 1.16 G/KG/D F Total Kt/V 2025-09-13 19:19:07 1.27 F TBW ([place]) 2025-09-13 19:19:07 48.54 Liters F spKt/V 2025-09-13 19:19:07 1.27 F eKt/V 2025-09-13 19:19:07 1.09 F stdKT/V Total 2025-09-13 19:19:07 N/A F Std Renal KT/V 2025-09-13 19:19:07 N/A F stdKt/V (DIAL) 2025-09-13 19:19:07 N/A F TOTAL HOURS/WEEK DIALYSIS 2025-09-13 19:19:07 9 hrs F BLOOD FLOW-QWB 2025-09-13 19:19:07 385 F CURRENT KRU 2025-09-13 19:19:07 F Urea nitrogen [Mass/volume] in Serum or Plasma 2025-09-13 19:17:14 81 mg/dL F 9.0-23.0 Urea nitrogen [Mass/volume] in Serum or Plasma 2025-09-13 19:17:14 81 mg/dL F 9.0-23.0 Urea nitrogen [Mass/volume] in Serum or Plasma --post dialysis 2025-09-13 16:18:22 28 mg/dL F 9.0-23.0 Urea nitrogen [Mass/volume] in Serum or Plasma --post dialysis 2025-09-13 16:18:22 28 mg/dL F 9.0-23.0 DIALYZER FLOW-QD 2025-09-08 23:40:52 800 mL/min F BSA [facility] 2025-09-08 23:40:52 F Unable to calculate: Post BUN lab result is unknown Dialyzer REJI 2025-09-08 23:40:52 1455 Calc F URR% 2025-09-08 23:40:52 F Unable to calculate: Post BUN lab result is unknown,Unable to Calculate. LENGTH OF DIALYSIS 2025-09-08 23:40:52 150 min F VM (KT/V MEAN VOL) 2025-09-08 23:40:52 F Unable to calculate: Post BUN lab result is unknown WEIGHT - PRE DAY 1 2025-09-08 23:40:52 136.8 kg F KT/V PRESCRIBED 2025-09-08 23:40:52 F Unable to calculate: Post BUN lab result is unknown HEIGHT IN INCHES 2025-09-08 23:40:52 67 Inches F WEIGHT (KG) 2025-09-08 23:40:52 115.5 kg F VT (KT/V TX VOL) 2025-09-08 23:40:52 F Unable to calculate: Post BUN lab result is unknown Std Renal KT/V 2025-09-08 23:40:52 F Unable to calculate: Post BUN lab result is unknown TBW ([facility]) 2025-09-08 23:40:52 F Unable to calculate: Post BUN lab result is unknown stdKT/V Total 2025-09-08 23:40:52 F Unable to calculate: Post BUN lab result is unknown TOTAL HOURS/WEEK DIALYSIS 2025-09-08 23:40:52 9 hrs F nPCR 2025-09-08 23:40:52 F Unable to calculate: Post BUN lab result is unknown PATIENT AGE 2025-09-08 23:40:52 34 Years F eKt/V 2025-09-08 23:40:52 F Unable to calculate: Post BUN lab result is unknown AMPUTATE FACTOR 2025-09-08 23:40:52 0.059 F stdKt/V (DIAL) 2025-09-08 23:40:52 F Unable to calculate: Post BUN lab result is unknown PRESCRIBED DAYS/WEEK 2025-09-08 23:40:52 3 Day/Wk F WEIGHT - POST DAY 1 2025-09-08 23:40:52 134 kg F BLOOD FLOW-QWB 2025-09-08 23:40:52 400 F Total Kt/V 2025-09-08 23:40:52 F Unable to calculate: Post BUN lab result is unknown CURRENT KRU 2025-09-08 23:40:52 F Unable to calculate: Post BUN lab result is unknown Residual kt/v 2025-09-08 23:40:52 F Unable to calculate: Post BUN lab result is unknown spKt/V 2025-09-08 23:40:52 F Unable to calculate: Post BUN lab result is unknown DIALYZER FLOW-QD 2025-09-08 23:40:52 800 mL/min F URR% 2025-09-08 23:40:52 F Unable to calculate: Post BUN lab result is unknown,Unable to Calculate. LENGTH OF DIALYSIS 2025-09-08 23:40:52 150 min F Dialyzer REJI 2025-09-08 23:40:52 1455 Calc F BSA [facility] 2025-09-08 23:40:52 F Unable to calculate: Post BUN lab result is unknown PATIENT AGE 2025-09-08 23:40:52 34 Years F WEIGHT - POST DAY 1 2025-09-08 23:40:52 134 kg F WEIGHT (KG) 2025-09-08 23:40:52 115.5 kg F HEIGHT IN INCHES 2025-09-08 23:40:52 67 Inches F VT (KT/V TX VOL) 2025-09-08 23:40:52 F Unable to calculate: Post BUN lab result is unknown WEIGHT - PRE DAY 1 2025-09-08 23:40:52 136.8 kg F PRESCRIBED DAYS/WEEK 2025-09-08 23:40:52 3 Day/Wk F VM (KT/V MEAN VOL) 2025-09-08 23:40:52 F Unable to calculate: Post BUN lab result is unknown Residual kt/v 2025-09-08 23:40:52 F Unable to calculate: Post BUN lab result is unknown nPCR 2025-09-08 23:40:52 F Unable to calculate: Post BUN lab result is unknown KT/V PRESCRIBED 2025-09-08 23:40:52 F Unable to calculate: Post BUN lab result is unknown Total Kt/V 2025-09-08 23:40:52 F Unable to calculate: Post BUN lab result is unknown AMPUTATE FACTOR 2025-09-08 23:40:52 0.059 F spKt/V 2025-09-08 23:40:52 F Unable to calculate: Post BUN lab result is unknown TBW ([facility]) 2025-09-08 23:40:52 F Unable to calculate: Post BUN lab result is unknown eKt/V 2025-09-08 23:40:52 F Unable to calculate: Post BUN lab result is unknown stdKt/V (DIAL) 2025-09-08 23:40:52 F Unable to calculate: Post BUN lab result is unknown Std Renal KT/V 2025-09-08 23:40:52 F Unable to calculate: Post BUN lab result is unknown BLOOD FLOW-QWB 2025-09-08 23:40:52 400 F stdKT/V Total 2025-09-08 23:40:52 F Unable to calculate: Post BUN lab result is unknown TOTAL HOURS/WEEK DIALYSIS 2025-09-08 23:40:52 9 hrs F CURRENT KRU 2025-09-08 23:40:52 F Unable to calculate: Post BUN lab result is unknown Urea nitrogen [Mass/volume] in Serum or Plasma 2025-09-08 23:39:17 83 mg/dL F 9.0-23.0 Urea nitrogen [Mass/volume] in Serum or Plasma 2025-09-08 23:39:17 83 mg/dL F 9.0-23.0 Urea nitrogen [Mass/volume] in Serum or Plasma --post dialysis 2025-09-08 16:16:43 F Recollect - Unsp un specimen Urea nitrogen [Mass/volume] in Serum or Plasma --post dialysis 2025-09-08 16:16:43 F Recollect - Unsp un specimen DIALYZER FLOW-QD 2025-09-03 15:52:00 800 mL/min F URR% 2025-09-03 15:52:00 58 % F LENGTH OF DIALYSIS 2025-09-03 15:52:00 237 min F Dialyzer REJI 2025-09-03 15:52:00 1455 Calc F WEIGHT - POST DAY 1 2025-09-03 15:52:00 127.7 kg F BSA [place] 2025-09-03 15:52:00 2.16 sq m F PATIENT AGE 2025-09-03 15:52:00 34 Years F WEIGHT - PRE DAY 1 2025-09-03 15:52:00 131.8 kg F HEIGHT IN INCHES 2025-09-03 15:52:00 67 Inches F PRESCRIBED DAYS/WEEK 2025-09-03 15:52:00 3 Day/Wk F WEIGHT (KG) 2025-09-03 15:52:00 115.5 kg F Residual kt/v 2025-09-03 15:52:00 F Unable to calculate: Post BUN lab result is unknown VT (KT/V TX VOL) 2025-09-03 15:52:00 69.4 L F VM (KT/V MEAN VOL) 2025-09-03 15:52:00 61.2 F Total Kt/V 2025-09-03 15:52:00 1.01 F AMPUTATE FACTOR 2025-09-03 15:52:00 0.059 F nPCR 2025-09-03 15:52:00 0.59 G/KG/D F KT/V PRESCRIBED 2025-09-03 15:52:00 1.98 F spKt/V 2025-09-03 15:52:00 1.01 F TBW ([facility]) 2025-09-03 15:52:00 46.64 Liters F eKt/V 2025-09-03 15:52:00 0.88 F stdKt/V (DIAL) 2025-09-03 15:52:00 N/A F BLOOD FLOW-QWB 2025-09-03 15:52:00 383 F TOTAL HOURS/WEEK DIALYSIS 2025-09-03 15:52:00 6 hrs F Std Renal KT/V 2025-09-03 15:52:00 N/A F stdKT/V Total 2025-09-03 15:52:00 N/A F CURRENT KRU 2025-09-03 15:52:00 F Unable to calculate: Post BUN lab result is unknown URR% 2025-09-03 15:52:00 58 % F DIALYZER FLOW-QD 2025-09-03 15:52:00 800 mL/min F Dialyzer REJI 2025-09-03 15:52:00 1455 Calc F PATIENT AGE 2025-09-03 15:52:00 34 Years F WEIGHT - POST DAY 1 2025-09-03 15:52:00 127.7 kg F BSA [place] 2025-09-03 15:52:00 2.16 sq m F LENGTH OF DIALYSIS 2025-09-03 15:52:00 237 min F WEIGHT - PRE DAY 1 2025-09-03 15:52:00 131.8 kg F HEIGHT IN INCHES 2025-09-03 15:52:00 67 Inches F WEIGHT (KG) 2025-09-03 15:52:00 115.5 kg F PRESCRIBED DAYS/WEEK 2025-09-03 15:52:00 3 Day/Wk F VT (KT/V TX VOL) 2025-09-03 15:52:00 69.4 L F Residual kt/v 2025-09-03 15:52:00 F Unable to calculate: Post BUN lab result is unknown VM (KT/V MEAN VOL) 2025-09-03 15:52:00 61.2 F KT/V PRESCRIBED 2025-09-03 15:52:00 1.98 F nPCR 2025-09-03 15:52:00 0.59 G/KG/D F Total Kt/V 2025-09-03 15:52:00 1.01 F TBW ([facility]) 2025-09-03 15:52:00 46.64 Liters F spKt/V 2025-09-03 15:52:00 1.01 F AMPUTATE FACTOR 2025-09-03 15:52:00 0.059 F eKt/V 2025-09-03 15:52:00 0.88 F Std Renal KT/V 2025-09-03 15:52:00 N/A F stdKt/V (DIAL) 2025-09-03 15:52:00 N/A F stdKT/V Total 2025-09-03 15:52:00 N/A F TOTAL HOURS/WEEK DIALYSIS 2025-09-03 15:52:00 6 hrs F BLOOD FLOW-QWB 2025-09-03 15:52:00 383 F CURRENT KRU 2025-09-03 15:52:00 F Unable to calculate: Post BUN lab result is unknown Urea nitrogen [Mass/volume] in Serum or Plasma --post dialysis 2025-09-03 15:50:10 23 mg/dL F 9.0-23.0 Urea nitrogen [Mass/volume] in Serum or Plasma --post dialysis 2025-09-03 15:50:10 23 mg/dL F 9.0-23.0 Urea nitrogen [Mass/volume] in Serum or Plasma 2025-09-03 15:36:09 55 mg/dL F 9.0-23.0 Urea nitrogen [Mass/volume] in Serum or Plasma 2025-09-03 15:36:09 55 mg/dL F 9.0-23.0 LENGTH OF DIALYSIS 2025-08-30 17:38:23 209 min F stdKt/V (DIAL) 2025-08-30 17:38:23 N/A F KT/V PRESCRIBED 2025-08-30 17:38:23 1.75 F WEIGHT - PRE DAY 1 2025-08-30 17:38:23 128.9 kg F DIALYZER FLOW-QD 2025-08-30 17:38:23 800 mL/min F TOTAL HOURS/WEEK DIALYSIS 2025-08-30 17:38:23 6 hrs F VT (KT/V TX VOL) 2025-08-30 17:38:23 62.2 L F CURRENT KRU 2025-08-30 17:38:23 F Unable to calculate: Post BUN lab result is unknown URR% 2025-08-30 17:38:23 59 % F Total Kt/V 2025-08-30 17:38:23 1.01 F Residual kt/v 2025-08-30 17:38:23 F Unable to calculate: Post BUN lab result is unknown PATIENT AGE 2025-08-30 17:38:23 34 Years F Dialyzer REJI 2025-08-30 17:38:23 1455 Calc F WEIGHT (KG) 2025-08-30 17:38:23 115.5 kg F HEIGHT IN INCHES 2025-08-30 17:38:23 67 Inches F spKt/V 2025-08-30 17:38:23 1.01 F nPCR 2025-08-30 17:38:23 0.68 G/KG/D F eKt/V 2025-08-30 17:38:23 0.88 F AMPUTATE FACTOR 2025-08-30 17:38:23 0.059 F WEIGHT - POST DAY 1 2025-08-30 17:38:23 125.9 kg F VM (KT/V MEAN VOL) 2025-08-30 17:38:23 58.5 F BLOOD FLOW-QWB 2025-08-30 17:38:23 399 F PRESCRIBED DAYS/WEEK 2025-08-30 17:38:23 3 Day/Wk F TBW ([facility]) 2025-08-30 17:38:23 46.19 Liters F Std Renal KT/V 2025-08-30 17:38:23 N/A F BSA [place] 2025-08-30 17:38:23 2.16 sq m F stdKT/V Total 2025-08-30 17:38:23 N/A F URR% 2025-08-30 17:38:23 59 % F DIALYZER FLOW-QD 2025-08-30 17:38:23 800 mL/min F LENGTH OF DIALYSIS 2025-08-30 17:38:23 209 min F BSA [place] 2025-08-30 17:38:23 2.16 sq m F Dialyzer REJI 2025-08-30 17:38:23 1455 Calc F PATIENT AGE 2025-08-30 17:38:23 34 Years F WEIGHT - POST DAY 1 2025-08-30 17:38:23 125.9 kg F WEIGHT - PRE DAY 1 2025-08-30 17:38:23 128.9 kg F WEIGHT (KG) 2025-08-30 17:38:23 115.5 kg F HEIGHT IN INCHES 2025-08-30 17:38:23 67 Inches F VT (KT/V TX VOL) 2025-08-30 17:38:23 62.2 L F VM (KT/V MEAN VOL) 2025-08-30 17:38:23 58.5 F PRESCRIBED DAYS/WEEK 2025-08-30 17:38:23 3 Day/Wk F Residual kt/v 2025-08-30 17:38:23 F Unable to calculate: Post BUN lab result is unknown nPCR 2025-08-30 17:38:23 0.68 G/KG/D F Total Kt/V 2025-08-30 17:38:23 1.01 F KT/V PRESCRIBED 2025-08-30 17:38:23 1.75 F AMPUTATE FACTOR 2025-08-30 17:38:23 0.059 F spKt/V 2025-08-30 17:38:23 1.01 F eKt/V 2025-08-30 17:38:23 0.88 F TBW ([facility]) 2025-08-30 17:38:23 46.19 Liters F stdKt/V (DIAL) 2025-08-30 17:38:23 N/A F Std Renal KT/V 2025-08-30 17:38:23 N/A F stdKT/V Total 2025-08-30 17:38:23 N/A F TOTAL HOURS/WEEK DIALYSIS 2025-08-30 17:38:23 6 hrs F BLOOD FLOW-QWB 2025-08-30 17:38:23 399 F CURRENT KRU 2025-08-30 17:38:23 F Unable to calculate: Post BUN lab result is unknown Urea nitrogen [Mass/volume] in Serum or Plasma --post dialysis 2025-08-30 17:36:15 21 mg/dL F 9.0-23.0 Urea nitrogen [Mass/volume] in Serum or Plasma --post dialysis 2025-08-30 17:36:15 21 mg/dL F 9.0-23.0 Urea nitrogen [Mass/volume] in Serum or Plasma 2025-08-30 17:26:17 51 mg/dL F 9.0-23.0 Urea nitrogen [Mass/volume] in Serum or Plasma 2025-08-30 17:26:17 51 mg/dL F 9.0-23.0 Dialyzer REJI 2025-08-25 13:20:53 1455 Calc F DIALYZER FLOW-QD 2025-08-25 13:20:53 800 mL/min F URR% 2025-08-25 13:20:53 59 % F LENGTH OF DIALYSIS 2025-08-25 13:20:53 209 min F BSA [facility] 2025-08-25 13:20:53 2.16 sq m F PATIENT AGE 2025-08-25 13:20:53 34 Years F WEIGHT - POST DAY 1 2025-08-25 13:20:53 126.6 kg F HEIGHT IN INCHES 2025-08-25 13:20:53 67 Inches F WEIGHT - PRE DAY 1 2025-08-25 13:20:53 130.3 kg F WEIGHT (KG) 2025-08-25 13:20:53 115.5 kg F PRESCRIBED DAYS/WEEK 2025-08-25 13:20:53 3 Day/Wk F VM (KT/V MEAN VOL) 2025-08-25 13:20:53 57.3 F VT (KT/V TX VOL) 2025-08-25 13:20:53 62 L F Residual kt/v 2025-08-25 13:20:53 F KT/V PRESCRIBED 2025-08-25 13:20:53 1.75 F AMPUTATE FACTOR 2025-08-25 13:20:53 0.059 F nPCR 2025-08-25 13:20:53 0.61 G/KG/D F Total Kt/V 2025-08-25 13:20:53 1.02 F TBW ([facility]) 2025-08-25 13:20:53 46.37 Liters F eKt/V 2025-08-25 13:20:53 0.88 F spKt/V 2025-08-25 13:20:53 1.02 F stdKt/V (DIAL) 2025-08-25 13:20:53 N/A F stdKT/V Total 2025-08-25 13:20:53 N/A F Std Renal KT/V 2025-08-25 13:20:53 N/A F TOTAL HOURS/WEEK DIALYSIS 2025-08-25 13:20:53 4 hrs F BLOOD FLOW-QWB 2025-08-25 13:20:53 399 F CURRENT KRU 2025-08-25 13:20:53 F URR% 2025-08-25 13:20:53 59 % F DIALYZER FLOW-QD 2025-08-25 13:20:53 800 mL/min F Dialyzer REJI 2025-08-25 13:20:53 1455 Calc F PATIENT AGE 2025-08-25 13:20:53 34 Years F BSA [facility] 2025-08-25 13:20:53 2.16 sq m F WEIGHT - POST DAY 1 2025-08-25 13:20:53 126.6 kg F HEIGHT IN INCHES 2025-08-25 13:20:53 67 Inches F LENGTH OF DIALYSIS 2025-08-25 13:20:53 209 min F WEIGHT - PRE DAY 1 2025-08-25 13:20:53 130.3 kg F WEIGHT (KG) 2025-08-25 13:20:53 115.5 kg F VT (KT/V TX VOL) 2025-08-25 13:20:53 62 L F PRESCRIBED DAYS/WEEK 2025-08-25 13:20:53 3 Day/Wk F VM (KT/V MEAN VOL) 2025-08-25 13:20:53 57.3 F Total Kt/V 2025-08-25 13:20:53 1.02 F nPCR 2025-08-25 13:20:53 0.61 G/KG/D F KT/V PRESCRIBED 2025-08-25 13:20:53 1.75 F Residual kt/v 2025-08-25 13:20:53 F spKt/V 2025-08-25 13:20:53 1.02 F TBW ([facility]) 2025-08-25 13:20:53 46.37 Liters F AMPUTATE FACTOR 2025-08-25 13:20:53 0.059 F eKt/V 2025-08-25 13:20:53 0.88 F Std Renal KT/V 2025-08-25 13:20:53 N/A F TOTAL HOURS/WEEK DIALYSIS 2025-08-25 13:20:53 4 hrs F stdKt/V (DIAL) 2025-08-25 13:20:53 N/A F stdKT/V Total 2025-08-25 13:20:53 N/A F BLOOD FLOW-QWB 2025-08-25 13:20:53 399 F CURRENT KRU 2025-08-25 13:20:53 F Urea nitrogen [Mass/volume] in Serum or Plasma --post dialysis 2025-08-25 13:19:17 27 mg/dL F 9.0-23.0 Urea nitrogen [Mass/volume] in Serum or Plasma --post dialysis 2025-08-25 13:19:17 27 mg/dL F 9.0-23.0 Urea nitrogen [Mass/volume] in Serum or Plasma 2025-08-25 13:19:17 66 mg/dL F 9.0-23.0 Creatinine [Mass/volume] in Serum or Plasma 2025-08-25 13:19:17 7.46 mg/dL F 0.55-1.02 Urea nitrogen [Mass/volume] in Serum or Plasma 2025-08-25 13:19:17 66 mg/dL F 9.0-23.0 Creatinine [Mass/volume] in Serum or Plasma 2025-08-25 13:19:17 7.46 mg/dL F 0.55-1.02 URR% 2025-08-20 18:59:56 45 % F DIALYZER FLOW-QD 2025-08-20 18:59:56 800 mL/min F LENGTH OF DIALYSIS 2025-08-20 18:59:56 209 min F Dialyzer REJI 2025-08-20 18:59:56 1455 Calc F BSA [place] 2025-08-20 18:59:56 2.16 sq m F PATIENT AGE 2025-08-20 18:59:56 34 Years F WEIGHT - PRE DAY 1 2025-08-20 18:59:56 128.6 kg F WEIGHT - POST DAY 1 2025-08-20 18:59:56 124.2 kg F WEIGHT (KG) 2025-08-20 18:59:56 115.5 kg F HEIGHT IN INCHES 2025-08-20 18:59:56 67 Inches F PRESCRIBED DAYS/WEEK 2025-08-20 18:59:56 3 Day/Wk F VM (KT/V MEAN VOL) 2025-08-20 18:59:56 55.7 F VT (KT/V TX VOL) 2025-08-20 18:59:56 88.1 L F Residual kt/v 2025-08-20 18:59:56 F nPCR 2025-08-20 18:59:56 0.61 G/KG/D F AMPUTATE FACTOR 2025-08-20 18:59:56 0.059 F TBW ([facility]) 2025-08-20 18:59:56 45.77 Liters F spKt/V 2025-08-20 18:59:56 0.72 F KT/V PRESCRIBED 2025-08-20 18:59:56 1.75 F Total Kt/V 2025-08-20 18:59:56 0.72 F stdKt/V (DIAL) 2025-08-20 18:59:56 N/A F eKt/V 2025-08-20 18:59:56 0.64 F stdKT/V Total 2025-08-20 18:59:56 N/A F Std Renal KT/V 2025-08-20 18:59:56 N/A F BLOOD FLOW-QWB 2025-08-20 18:59:56 400 F TOTAL HOURS/WEEK DIALYSIS 2025-08-20 18:59:56 6 hrs F CURRENT KRU 2025-08-20 18:59:56 F URR% 2025-08-20 18:59:56 45 % F DIALYZER FLOW-QD 2025-08-20 18:59:56 800 mL/min F Dialyzer REJI 2025-08-20 18:59:56 1455 Calc F LENGTH OF DIALYSIS 2025-08-20 18:59:56 209 min F PATIENT AGE 2025-08-20 18:59:56 34 Years F BSA [facility] 2025-08-20 18:59:56 2.16 sq m F WEIGHT - POST DAY 1 2025-08-20 18:59:56 124.2 kg F WEIGHT - PRE DAY 1 2025-08-20 18:59:56 128.6 kg F WEIGHT (KG) 2025-08-20 18:59:56 115.5 kg F HEIGHT IN INCHES 2025-08-20 18:59:56 67 Inches F VT (KT/V TX VOL) 2025-08-20 18:59:56 88.1 L F PRESCRIBED DAYS/WEEK 2025-08-20 18:59:56 3 Day/Wk F VM (KT/V MEAN VOL) 2025-08-20 18:59:56 55.7 F AMPUTATE FACTOR 2025-08-20 18:59:56 0.059 F nPCR 2025-08-20 18:59:56 0.61 G/KG/D F Total Kt/V 2025-08-20 18:59:56 0.72 F Residual kt/v 2025-08-20 18:59:56 F KT/V PRESCRIBED 2025-08-20 18:59:56 1.75 F TBW ([facility]) 2025-08-20 18:59:56 45.77 Liters F spKt/V 2025-08-20 18:59:56 0.72 F eKt/V 2025-08-20 18:59:56 0.64 F TOTAL HOURS/WEEK DIALYSIS 2025-08-20 18:59:56 6 hrs F stdKt/V (DIAL) 2025-08-20 18:59:56 N/A F Std Renal KT/V 2025-08-20 18:59:56 N/A F BLOOD FLOW-QWB 2025-08-20 18:59:56 400 F stdKT/V Total 2025-08-20 18:59:56 N/A F CURRENT KRU 2025-08-20 18:59:56 F Urea nitrogen [Mass/volume] in Serum or Plasma 2025-08-20 18:58:15 42 mg/dL F 9.0-23.0 Urea nitrogen [Mass/volume] in Serum or Plasma 2025-08-20 18:58:15 42 mg/dL F 9.0-23.0 Urea nitrogen [Mass/volume] in Serum or Plasma --post dialysis 2025-08-20 18:23:17 23 mg/dL F 9.0-23.0 Urea nitrogen [Mass/volume] in Serum or Plasma --post dialysis 2025-08-20 18:23:17 23 mg/dL F 9.0-23.0 Dialyzer REJI 2025-08-13 16:01:21 1455 Calc F LENGTH OF DIALYSIS 2025-08-13 16:01:21 150 min F URR% 2025-08-13 16:01:21 58 % F DIALYZER FLOW-QD 2025-08-13 16:01:21 800 mL/min F PATIENT AGE 2025-08-13 16:01:21 34 Years F BSA [place] 2025-08-13 16:01:21 2.16 sq m F WEIGHT - POST DAY 1 2025-08-13 16:01:21 125.4 kg F HEIGHT IN INCHES 2025-08-13 16:01:21 67 Inches F WEIGHT - PRE DAY 1 2025-08-13 16:01:21 128.4 kg F VT (KT/V TX VOL) 2025-08-13 16:01:21 46.1 L F PRESCRIBED DAYS/WEEK 2025-08-13 16:01:21 3 Day/Wk F WEIGHT (KG) 2025-08-13 16:01:21 115.5 kg F VM (KT/V MEAN VOL) 2025-08-13 16:01:21 55.7 F Residual kt/v 2025-08-13 16:01:21 F Unable to calculate: Post BUN lab result is unknown nPCR 2025-08-13 16:01:21 0.7 G/KG/D F AMPUTATE FACTOR 2025-08-13 16:01:21 0.059 F Total Kt/V 2025-08-13 16:01:21 0.99 F KT/V PRESCRIBED 2025-08-13 16:01:21 1.25 F TBW ([facility]) 2025-08-13 16:01:21 46.07 Liters F spKt/V 2025-08-13 16:01:21 0.99 F stdKt/V (DIAL) 2025-08-13 16:01:21 N/A F eKt/V 2025-08-13 16:01:21 0.81 F TOTAL HOURS/WEEK DIALYSIS 2025-08-13 16:01:21 6 hrs F BLOOD FLOW-QWB 2025-08-13 16:01:21 399 F stdKT/V Total 2025-08-13 16:01:21 N/A F Std Renal KT/V 2025-08-13 16:01:21 N/A F CURRENT KRU 2025-08-13 16:01:21 F Unable to calculate: Post BUN lab result is unknown URR% 2025-08-13 16:01:21 58 % F DIALYZER FLOW-QD 2025-08-13 16:01:21 800 mL/min F Dialyzer REJI 2025-08-13 16:01:21 1455 Calc F LENGTH OF DIALYSIS 2025-08-13 16:01:21 150 min F PATIENT AGE 2025-08-13 16:01:21 34 Years F BSA [place] 2025-08-13 16:01:21 2.16 sq m F HEIGHT IN INCHES 2025-08-13 16:01:21 67 Inches F WEIGHT (KG) 2025-08-13 16:01:21 115.5 kg F WEIGHT - PRE DAY 1 2025-08-13 16:01:21 128.4 kg F WEIGHT - POST DAY 1 2025-08-13 16:01:21 125.4 kg F PRESCRIBED DAYS/WEEK 2025-08-13 16:01:21 3 Day/Wk F VT (KT/V TX VOL) 2025-08-13 16:01:21 46.1 L F Residual kt/v 2025-08-13 16:01:21 F Unable to calculate: Post BUN lab result is unknown VM (KT/V MEAN VOL) 2025-08-13 16:01:21 55.7 F KT/V PRESCRIBED 2025-08-13 16:01:21 1.25 F TBW ([facility]) 2025-08-13 16:01:21 46.07 Liters F nPCR 2025-08-13 16:01:21 0.7 G/KG/D F AMPUTATE FACTOR 2025-08-13 16:01:21 0.059 F Total Kt/V 2025-08-13 16:01:21 0.99 F spKt/V 2025-08-13 16:01:21 0.99 F eKt/V 2025-08-13 16:01:21 0.81 F stdKt/V (DIAL) 2025-08-13 16:01:21 N/A F Std Renal KT/V 2025-08-13 16:01:21 N/A F TOTAL HOURS/WEEK DIALYSIS 2025-08-13 16:01:21 6 hrs F stdKT/V Total 2025-08-13 16:01:21 N/A F BLOOD FLOW-QWB 2025-08-13 16:01:21 399 F CURRENT KRU 2025-08-13 16:01:21 F Unable to calculate: Post BUN lab result is unknown Urea nitrogen [Mass/volume] in Serum or Plasma --post dialysis 2025-08-13 15:59:16 30 mg/dL F 9.0-23.0 Urea nitrogen [Mass/volume] in Serum or Plasma --post dialysis 2025-08-13 15:59:16 30 mg/dL F 9.0-23.0 Urea nitrogen [Mass/volume] in Serum or Plasma 2025-08-13 14:43:17 71 mg/dL F 9.0-23.0 Urea nitrogen [Mass/volume] in Serum or Plasma 2025-08-13 14:43:17 71 mg/dL F 9.0-23.0 URR% 2025-08-06 18:54:39 59 % F DIALYZER FLOW-QD 2025-08-06 18:54:39 800 mL/min F LENGTH OF DIALYSIS 2025-08-06 18:54:39 205 min F PATIENT AGE 2025-08-06 18:54:39 34 Years F Dialyzer REJI 2025-08-06 18:54:39 1455 Calc F BSA [place] 2025-08-06 18:54:39 2.16 sq m F HEIGHT IN INCHES 2025-08-06 18:54:39 67 Inches F PRESCRIBED DAYS/WEEK 2025-08-06 18:54:39 3 Day/Wk F WEIGHT (KG) 2025-08-06 18:54:39 115.5 kg F WEIGHT - PRE DAY 1 2025-08-06 18:54:39 124.3 kg F WEIGHT - POST DAY 1 2025-08-06 18:54:39 120.4 kg F VT (KT/V TX VOL) 2025-08-06 18:54:39 59.2 L F VM (KT/V MEAN VOL) 2025-08-06 18:54:39 58.9 F Residual kt/v 2025-08-06 18:54:39 F KT/V PRESCRIBED 2025-08-06 18:54:39 1.71 F TBW ([facility]) 2025-08-06 18:54:39 44.84 Liters F spKt/V 2025-08-06 18:54:39 1.05 F AMPUTATE FACTOR 2025-08-06 18:54:39 0.059 F Total Kt/V 2025-08-06 18:54:39 1.05 F nPCR 2025-08-06 18:54:39 0.62 G/KG/D F eKt/V 2025-08-06 18:54:39 0.9 F stdKt/V (DIAL) 2025-08-06 18:54:39 N/A F Std Renal KT/V 2025-08-06 18:54:39 N/A F stdKT/V Total 2025-08-06 18:54:39 N/A F TOTAL HOURS/WEEK DIALYSIS 2025-08-06 18:54:39 6 hrs F BLOOD FLOW-QWB 2025-08-06 18:54:39 399 F CURRENT KRU 2025-08-06 18:54:39 F URR% 2025-08-06 18:54:39 59 % F DIALYZER FLOW-QD 2025-08-06 18:54:39 800 mL/min F Dialyzer REJI 2025-08-06 18:54:39 1455 Calc F LENGTH OF DIALYSIS 2025-08-06 18:54:39 205 min F WEIGHT - POST DAY 1 2025-08-06 18:54:39 120.4 kg F PATIENT AGE 2025-08-06 18:54:39 34 Years F BSA [place] 2025-08-06 18:54:39 2.16 sq m F HEIGHT IN INCHES 2025-08-06 18:54:39 67 Inches F WEIGHT - PRE DAY 1 2025-08-06 18:54:39 124.3 kg F WEIGHT (KG) 2025-08-06 18:54:39 115.5 kg F PRESCRIBED DAYS/WEEK 2025-08-06 18:54:39 3 Day/Wk F Residual kt/v 2025-08-06 18:54:39 F KT/V PRESCRIBED 2025-08-06 18:54:39 1.71 F Total Kt/V 2025-08-06 18:54:39 1.05 F VT (KT/V TX VOL) 2025-08-06 18:54:39 59.2 L F VM (KT/V MEAN VOL) 2025-08-06 18:54:39 58.9 F nPCR 2025-08-06 18:54:39 0.62 G/KG/D F TBW ([facility]) 2025-08-06 18:54:39 44.84 Liters F spKt/V 2025-08-06 18:54:39 1.05 F AMPUTATE FACTOR 2025-08-06 18:54:39 0.059 F stdKt/V (DIAL) 2025-08-06 18:54:39 N/A F eKt/V 2025-08-06 18:54:39 0.9 F stdKT/V Total 2025-08-06 18:54:39 N/A F Std Renal KT/V 2025-08-06 18:54:39 N/A F TOTAL HOURS/WEEK DIALYSIS 2025-08-06 18:54:39 6 hrs F CURRENT KRU 2025-08-06 18:54:39 F BLOOD FLOW-QWB 2025-08-06 18:54:39 399 F Urea nitrogen [Mass/volume] in Serum or Plasma 2025-08-06 18:53:12 44 mg/dL F 9.0-23.0 Urea nitrogen [Mass/volume] in Serum or Plasma 2025-08-06 18:53:12 44 mg/dL F 9.0-23.0 Urea nitrogen [Mass/volume] in Serum or Plasma --post dialysis 2025-08-06 17:16:16 18 mg/dL F 9.0-23.0 Urea nitrogen [Mass/volume] in Serum or Plasma --post dialysis 2025-08-06 17:16:16 18 mg/dL F 9.0-23.0 URR% 2025-07-30 17:18:44 62 % F Dialyzer REJI 2025-07-30 17:18:44 1455 Calc F DIALYZER FLOW-QD 2025-07-30 17:18:44 800 mL/min F LENGTH OF DIALYSIS 2025-07-30 17:18:44 210 min F WEIGHT - POST DAY 1 2025-07-30 17:18:44 121 kg F PATIENT AGE 2025-07-30 17:18:44 34 Years F HEIGHT IN INCHES 2025-07-30 17:18:44 67 Inches F WEIGHT - PRE DAY 1 2025-07-30 17:18:44 122 kg F WEIGHT (KG) 2025-07-30 17:18:44 115.5 kg F BSA [place] 2025-07-30 17:18:44 2.16 sq m F PRESCRIBED DAYS/WEEK 2025-07-30 17:18:44 3 Day/Wk F VM (KT/V MEAN VOL) 2025-07-30 17:18:44 58.8 F Residual kt/v 2025-07-30 17:18:44 F Unable to calculate: Post BUN lab result is unknown VT (KT/V TX VOL) 2025-07-30 17:18:44 59 L F KT/V PRESCRIBED 2025-07-30 17:18:44 1.76 F Total Kt/V 2025-07-30 17:18:44 1.05 F nPCR 2025-07-30 17:18:44 0.51 G/KG/D F TBW ([facility]) 2025-07-30 17:18:44 44.98 Liters F eKt/V 2025-07-30 17:18:44 0.91 F AMPUTATE FACTOR 2025-07-30 17:18:44 0.059 F spKt/V 2025-07-30 17:18:44 1.05 F Std Renal KT/V 2025-07-30 17:18:44 N/A F stdKT/V Total 2025-07-30 17:18:44 N/A F stdKt/V (DIAL) 2025-07-30 17:18:44 N/A F TOTAL HOURS/WEEK DIALYSIS 2025-07-30 17:18:44 5 hrs F BLOOD FLOW-QWB 2025-07-30 17:18:44 384 F CURRENT KRU 2025-07-30 17:18:44 F Unable to calculate: Post BUN lab result is unknown DIALYZER FLOW-QD 2025-07-30 17:18:44 800 mL/min F URR% 2025-07-30 17:18:44 62 % F Dialyzer REJI 2025-07-30 17:18:44 1455 Calc F LENGTH OF DIALYSIS 2025-07-30 17:18:44 210 min F PATIENT AGE 2025-07-30 17:18:44 34 Years F BSA [place] 2025-07-30 17:18:44 2.16 sq m F WEIGHT - PRE DAY 1 2025-07-30 17:18:44 122 kg F WEIGHT - POST DAY 1 2025-07-30 17:18:44 121 kg F HEIGHT IN INCHES 2025-07-30 17:18:44 67 Inches F WEIGHT (KG) 2025-07-30 17:18:44 115.5 kg F PRESCRIBED DAYS/WEEK 2025-07-30 17:18:44 3 Day/Wk F VM (KT/V MEAN VOL) 2025-07-30 17:18:44 58.8 F Residual kt/v 2025-07-30 17:18:44 F Unable to calculate: Post BUN lab result is unknown VT (KT/V TX VOL) 2025-07-30 17:18:44 59 L F KT/V PRESCRIBED 2025-07-30 17:18:44 1.76 F Total Kt/V 2025-07-30 17:18:44 1.05 F nPCR 2025-07-30 17:18:44 0.51 G/KG/D F AMPUTATE FACTOR 2025-07-30 17:18:44 0.059 F TBW ([facility]) 2025-07-30 17:18:44 44.98 Liters F eKt/V 2025-07-30 17:18:44 0.91 F stdKt/V (DIAL) 2025-07-30 17:18:44 N/A F Std Renal KT/V 2025-07-30 17:18:44 N/A F spKt/V 2025-07-30 17:18:44 1.05 F stdKT/V Total 2025-07-30 17:18:44 N/A F TOTAL HOURS/WEEK DIALYSIS 2025-07-30 17:18:44 5 hrs F BLOOD FLOW-QWB 2025-07-30 17:18:44 384 F CURRENT KRU 2025-07-30 17:18:44 F Unable to calculate: Post BUN lab result is unknown Urea nitrogen [Mass/volume] in Serum or Plasma --post dialysis 2025-07-30 17:17:19 13 mg/dL F 9.0-23.0 Urea nitrogen [Mass/volume] in Serum or Plasma --post dialysis 2025-07-30 17:17:19 13 mg/dL F 9.0-23.0 Urea nitrogen [Mass/volume] in Serum or Plasma 2025-07-30 16:41:13 34 mg/dL F 9.0-23.0 Urea nitrogen [Mass/volume] in Serum or Plasma 2025-07-30 16:41:13 34 mg/dL F 9.0-23.0 DIALYZER FLOW-QD 2025-07-28 15:11:18 800 mL/min F URR% 2025-07-28 15:11:18 60 % F Dialyzer REJI 2025-07-28 15:11:18 1455 Calc F PATIENT AGE 2025-07-28 15:11:18 34 Years F LENGTH OF DIALYSIS 2025-07-28 15:11:18 193 min F WEIGHT - PRE DAY 1 2025-07-28 15:11:18 121.9 kg F Total Kt/V 2025-07-28 15:11:18 1.02 F KT/V PRESCRIBED 2025-07-28 15:11:18 1.61 F AMPUTATE FACTOR 2025-07-28 15:11:18 0.059 F VM (KT/V MEAN VOL) 2025-07-28 15:11:18 58.8 F VT (KT/V TX VOL) 2025-07-28 15:11:18 56.9 L F eKt/V 2025-07-28 15:11:18 0.88 F TOTAL HOURS/WEEK DIALYSIS 2025-07-28 15:11:18 5 hrs F CURRENT [facility] 2025-07-28 15:11:18 F BSA [place] 2025-07-28 15:11:18 2.16 sq m F WEIGHT - POST DAY 1 2025-07-28 15:11:18 118.6 kg F HEIGHT IN INCHES 2025-07-28 15:11:18 67 Inches F PRESCRIBED DAYS/WEEK 2025-07-28 15:11:18 3 Day/Wk F WEIGHT (KG) 2025-07-28 15:11:18 115.5 kg F Residual kt/v 2025-07-28 15:11:18 F nPCR 2025-07-28 15:11:18 0.45 G/KG/D F TBW ([facility]) 2025-07-28 15:11:18 44.39 Liters F spKt/V 2025-07-28 15:11:18 1.02 F stdKT/V Total 2025-07-28 15:11:18 N/A F Std Renal KT/V 2025-07-28 15:11:18 N/A F stdKt/V (DIAL) 2025-07-28 15:11:18 N/A F BLOOD FLOW-QWB 2025-07-28 15:11:18 399 F Dialyzer REJI 2025-07-28 15:11:18 1455 Calc F BSA [place] 2025-07-28 15:11:18 2.16 sq m F WEIGHT - PRE DAY 1 2025-07-28 15:11:18 121.9 kg F DIALYZER FLOW-QD 2025-07-28 15:11:18 800 mL/min F Residual kt/v 2025-07-28 15:11:18 F PATIENT AGE 2025-07-28 15:11:18 34 Years F URR% 2025-07-28 15:11:18 60 % F spKt/V 2025-07-28 15:11:18 1.02 F Total Kt/V 2025-07-28 15:11:18 1.02 F TBW ([facility]) 2025-07-28 15:11:18 44.39 Liters F HEIGHT IN INCHES 2025-07-28 15:11:18 67 Inches F nPCR 2025-07-28 15:11:18 0.45 G/KG/D F WEIGHT (KG) 2025-07-28 15:11:18 115.5 kg F VM (KT/V MEAN VOL) 2025-07-28 15:11:18 58.8 F TOTAL HOURS/WEEK DIALYSIS 2025-07-28 15:11:18 5 hrs F WEIGHT - POST DAY 1 2025-07-28 15:11:18 118.6 kg F stdKT/V Total 2025-07-28 15:11:18 N/A F Std Renal KT/V 2025-07-28 15:11:18 N/A F stdKt/V (DIAL) 2025-07-28 15:11:18 N/A F BLOOD FLOW-QWB 2025-07-28 15:11:18 399 F AMPUTATE FACTOR 2025-07-28 15:11:18 0.059 F CURRENT KRU 2025-07-28 15:11:18 F LENGTH OF DIALYSIS 2025-07-28 15:11:18 193 min F PRESCRIBED DAYS/WEEK 2025-07-28 15:11:18 3 Day/Wk F eKt/V 2025-07-28 15:11:18 0.88 F VT (KT/V TX VOL) 2025-07-28 15:11:18 56.9 L F KT/V PRESCRIBED 2025-07-28 15:11:18 1.61 F URR% 2025-07-28 15:11:18 60 % F DIALYZER FLOW-QD 2025-07-28 15:11:18 800 mL/min F Dialyzer REJI 2025-07-28 15:11:18 1455 Calc F LENGTH OF DIALYSIS 2025-07-28 15:11:18 193 min F PATIENT AGE 2025-07-28 15:11:18 34 Years F BSA [facility] 2025-07-28 15:11:18 2.16 sq m F WEIGHT - POST DAY 1 2025-07-28 15:11:18 118.6 kg F WEIGHT - PRE DAY 1 2025-07-28 15:11:18 121.9 kg F HEIGHT IN INCHES 2025-07-28 15:11:18 67 Inches F PRESCRIBED DAYS/WEEK 2025-07-28 15:11:18 3 Day/Wk F Residual kt/v 2025-07-28 15:11:18 F VT (KT/V TX VOL) 2025-07-28 15:11:18 56.9 L F WEIGHT (KG) 2025-07-28 15:11:18 115.5 kg F VM (KT/V MEAN VOL) 2025-07-28 15:11:18 58.8 F KT/V PRESCRIBED 2025-07-28 15:11:18 1.61 F Total Kt/V 2025-07-28 15:11:18 1.02 F nPCR 2025-07-28 15:11:18 0.45 G/KG/D F AMPUTATE FACTOR 2025-07-28 15:11:18 0.059 F TBW ([facility]) 2025-07-28 15:11:18 44.39 Liters F eKt/V 2025-07-28 15:11:18 0.88 F spKt/V 2025-07-28 15:11:18 1.02 F stdKt/V (DIAL) 2025-07-28 15:11:18 N/A F Std Renal KT/V 2025-07-28 15:11:18 N/A F stdKT/V Total 2025-07-28 15:11:18 N/A F TOTAL HOURS/WEEK DIALYSIS 2025-07-28 15:11:18 5 hrs F BLOOD FLOW-QWB 2025-07-28 15:11:18 399 F CURRENT KRU 2025-07-28 15:11:18 F Urea nitrogen [Mass/volume] in Serum or Plasma 2025-07-28 15:09:19 42 mg/dL F 9.0-23.0 Urea nitrogen [Mass/volume] in Serum or Plasma 2025-07-28 15:09:19 42 mg/dL F 9.0-23.0 Urea nitrogen [Mass/volume] in Serum or Plasma 2025-07-28 15:09:19 42 mg/dL F 9.0-23.0 Urea nitrogen [Mass/volume] in Serum or Plasma --post dialysis 2025-07-28 14:26:14 17 mg/dL F 9.0-23.0 Urea nitrogen [Mass/volume] in Serum or Plasma --post dialysis 2025-07-28 14:26:14 17 mg/dL F 9.0-23.0 Urea nitrogen [Mass/volume] in Serum or Plasma --post dialysis 2025-07-28 14:26:14 17 mg/dL F 9.0-23.0 DIALYZER FLOW-QD 2025-07-21 16:03:00 800 mL/min F URR% 2025-07-21 16:03:00 61 % F PATIENT AGE 2025-07-21 16:03:00 34 Years F BSA [place] 2025-07-21 16:03:00 2.16 sq m F Dialyzer REJI 2025-07-21 16:03:00 1455 Calc F LENGTH OF DIALYSIS 2025-07-21 16:03:00 212 min F WEIGHT - POST DAY 1 2025-07-21 16:03:00 116.4 kg F WEIGHT - PRE DAY 1 2025-07-21 16:03:00 119.4 kg F HEIGHT IN INCHES 2025-07-21 16:03:00 67 Inches F WEIGHT (KG) 2025-07-21 16:03:00 115.5 kg F Residual kt/v 2025-07-21 16:03:00 F VT (KT/V TX VOL) 2025-07-21 16:03:00 60.5 L F KT/V PRESCRIBED 2025-07-21 16:03:00 1.77 F Total Kt/V 2025-07-21 16:03:00 1.06 F VM (KT/V MEAN VOL) 2025-07-21 16:03:00 59.4 F PRESCRIBED DAYS/WEEK 2025-07-21 16:03:00 3 Day/Wk F nPCR 2025-07-21 16:03:00 0.54 G/KG/D F TBW ([facility]) 2025-07-21 16:03:00 43.85 Liters F spKt/V 2025-07-21 16:03:00 1.06 F AMPUTATE FACTOR 2025-07-21 16:03:00 0.059 F stdKt/V (DIAL) 2025-07-21 16:03:00 N/A F eKt/V 2025-07-21 16:03:00 0.92 F Std Renal KT/V 2025-07-21 16:03:00 N/A F TOTAL HOURS/WEEK DIALYSIS 2025-07-21 16:03:00 6 hrs F stdKT/V Total 2025-07-21 16:03:00 N/A F BLOOD FLOW-QWB 2025-07-21 16:03:00 399 F CURRENT KRU 2025-07-21 16:03:00 F DIALYZER FLOW-QD 2025-07-21 16:03:00 800 mL/min F URR% 2025-07-21 16:03:00 61 % F Dialyzer REJI 2025-07-21 16:03:00 1455 Calc F PATIENT AGE 2025-07-21 16:03:00 34 Years F LENGTH OF DIALYSIS 2025-07-21 16:03:00 212 min F WEIGHT - POST DAY 1 2025-07-21 16:03:00 116.4 kg F WEIGHT - PRE DAY 1 2025-07-21 16:03:00 119.4 kg F BSA [place] 2025-07-21 16:03:00 2.16 sq m F HEIGHT IN INCHES 2025-07-21 16:03:00 67 Inches F WEIGHT (KG) 2025-07-21 16:03:00 115.5 kg F PRESCRIBED DAYS/WEEK 2025-07-21 16:03:00 3 Day/Wk F VT (KT/V TX VOL) 2025-07-21 16:03:00 60.5 L F Total Kt/V 2025-07-21 16:03:00 1.06 F nPCR 2025-07-21 16:03:00 0.54 G/KG/D F VM (KT/V MEAN VOL) 2025-07-21 16:03:00 59.4 F Residual kt/v 2025-07-21 16:03:00 F KT/V PRESCRIBED 2025-07-21 16:03:00 1.77 F AMPUTATE FACTOR 2025-07-21 16:03:00 0.059 F TBW ([facility]) 2025-07-21 16:03:00 43.85 Liters F spKt/V 2025-07-21 16:03:00 1.06 F eKt/V 2025-07-21 16:03:00 0.92 F stdKT/V Total 2025-07-21 16:03:00 N/A F stdKt/V (DIAL) 2025-07-21 16:03:00 N/A F Std Renal KT/V 2025-07-21 16:03:00 N/A F TOTAL HOURS/WEEK DIALYSIS 2025-07-21 16:03:00 6 hrs F BLOOD FLOW-QWB 2025-07-21 16:03:00 399 F CURRENT KRU 2025-07-21 16:03:00 F BSA [place] 2025-07-21 16:03:00 2.16 sq m F URR% 2025-07-21 16:03:00 61 % F WEIGHT - POST DAY 1 2025-07-21 16:03:00 116.4 kg F PATIENT AGE 2025-07-21 16:03:00 34 Years F WEIGHT - PRE DAY 1 2025-07-21 16:03:00 119.4 kg F PRESCRIBED DAYS/WEEK 2025-07-21 16:03:00 3 Day/Wk F KT/V PRESCRIBED 2025-07-21 16:03:00 1.77 F nPCR 2025-07-21 16:03:00 0.54 G/KG/D F spKt/V 2025-07-21 16:03:00 1.06 F AMPUTATE FACTOR 2025-07-21 16:03:00 0.059 F TBW ([facility]) 2025-07-21 16:03:00 43.85 Liters F stdKt/V (DIAL) 2025-07-21 16:03:00 N/A F Std Renal KT/V 2025-07-21 16:03:00 N/A F TOTAL HOURS/WEEK DIALYSIS 2025-07-21 16:03:00 6 hrs F BLOOD FLOW-QWB 2025-07-21 16:03:00 399 F DIALYZER FLOW-QD 2025-07-21 16:03:00 800 mL/min F Dialyzer REJI 2025-07-21 16:03:00 1455 Calc F HEIGHT IN INCHES 2025-07-21 16:03:00 67 Inches F LENGTH OF DIALYSIS 2025-07-21 16:03:00 212 min F WEIGHT (KG) 2025-07-21 16:03:00 115.5 kg F VM (KT/V MEAN VOL) 2025-07-21 16:03:00 59.4 F VT (KT/V TX VOL) 2025-07-21 16:03:00 60.5 L F Total Kt/V 2025-07-21 16:03:00 1.06 F stdKT/V Total 2025-07-21 16:03:00 N/A F eKt/V 2025-07-21 16:03:00 0.92 F Residual kt/v 2025-07-21 16:03:00 F CURRENT KRU 2025-07-21 16:03:00 F Creatinine [Mass/volume] in Serum or Plasma 2025-07-21 16:01:13 7.47 mg/dL F 0.55-1.02 Urea nitrogen [Mass/volume] in Serum or Plasma 2025-07-21 16:01:13 54 mg/dL F 9.0-23.0 Urea nitrogen [Mass/volume] in Serum or Plasma 2025-07-21 16:01:13 54 mg/dL F 9.0-23.0 Creatinine [Mass/volume] in Serum or Plasma 2025-07-21 16:01:13 7.47 mg/dL F 0.55-1.02 Urea nitrogen [Mass/volume] in Serum or Plasma 2025-07-21 16:01:13 54 mg/dL F 9.0-23.0 Creatinine [Mass/volume] in Serum or Plasma 2025-07-21 16:01:13 7.47 mg/dL F 0.55-1.02 Urea nitrogen [Mass/volume] in Serum or Plasma --post dialysis 2025-07-21 15:37:18 21 mg/dL F 9.0-23.0 Urea nitrogen [Mass/volume] in Serum or Plasma --post dialysis 2025-07-21 15:37:18 21 mg/dL F 9.0-23.0 Urea nitrogen [Mass/volume] in Serum or Plasma --post dialysis 2025-07-21 15:37:18 21 mg/dL F 9.0-23.0 URR% 2025-07-16 16:35:34 F Unable to calculate: Post BUN lab result is unknown,Unable to Calculate. Dialyzer REJI 2025-07-16 16:35:34 1455 Calc F LENGTH OF DIALYSIS 2025-07-16 16:35:34 202 min F BSA [place] 2025-07-16 16:35:34 F Unable to calculate: Post BUN lab result is unknown PATIENT AGE 2025-07-16 16:35:34 34 Years F DIALYZER FLOW-QD 2025-07-16 16:35:34 800 mL/min F WEIGHT - PRE DAY 1 2025-07-16 16:35:34 119.3 kg F WEIGHT - POST DAY 1 2025-07-16 16:35:34 115.8 kg F HEIGHT IN INCHES 2025-07-16 16:35:34 67 Inches F WEIGHT (KG) 2025-07-16 16:35:34 115.5 kg F PRESCRIBED DAYS/WEEK 2025-07-16 16:35:34 3 Day/Wk F VM (KT/V MEAN VOL) 2025-07-16 16:35:34 F Unable to calculate: Post BUN lab result is unknown Residual kt/v 2025-07-16 16:35:34 F Unable to calculate: Post BUN lab result is unknown KT/V PRESCRIBED 2025-07-16 16:35:34 F Unable to calculate: Post BUN lab result is unknown VT (KT/V TX VOL) 2025-07-16 16:35:34 F Unable to calculate: Post BUN lab result is unknown Total Kt/V 2025-07-16 16:35:34 F Unable to calculate: Post BUN lab result is unknown nPCR 2025-07-16 16:35:34 F Unable to calculate: Post BUN lab result is unknown AMPUTATE FACTOR 2025-07-16 16:35:34 0.059 F TBW ([facility]) 2025-07-16 16:35:34 F Unable to calculate: Post BUN lab result is unknown spKt/V 2025-07-16 16:35:34 F Unable to calculate: Post BUN lab result is unknown stdKt/V (DIAL) 2025-07-16 16:35:34 F Unable to calculate: Post BUN lab result is unknown Std Renal KT/V 2025-07-16 16:35:34 F Unable to calculate: Post BUN lab result is unknown stdKT/V Total 2025-07-16 16:35:34 F Unable to calculate: Post BUN lab result is unknown TOTAL HOURS/WEEK DIALYSIS 2025-07-16 16:35:34 7 hrs F eKt/V 2025-07-16 16:35:34 F Unable to calculate: Post BUN lab result is unknown BLOOD FLOW-QWB 2025-07-16 16:35:34 399 F CURRENT KRU 2025-07-16 16:35:34 F Unable to calculate: Post BUN lab result is unknown Urea nitrogen [Mass/volume] in Serum or Plasma 2025-07-16 16:34:10 53 mg/dL F 9.0-23.0 Urea nitrogen [Mass/volume] in Serum or Plasma --post dialysis 2025-07-16 14:16:12 F Recollect - Unsp un specimen URR% 2025-07-15 04:27:12 57 % F Dialyzer REJI 2025-07-15 04:27:12 1455 Calc F PATIENT AGE 2025-07-15 04:27:12 34 Years F LENGTH OF DIALYSIS 2025-07-15 04:27:12 209 min F DIALYZER FLOW-QD 2025-07-15 04:27:12 800 mL/min F WEIGHT - POST DAY 1 2025-07-15 04:27:12 117.2 kg F BSA [place] 2025-07-15 04:27:12 2.16 sq m F WEIGHT - PRE DAY 1 2025-07-15 04:27:12 120.8 kg F HEIGHT IN INCHES 2025-07-15 04:27:12 67 Inches F PRESCRIBED DAYS/WEEK 2025-07-15 04:27:12 3 Day/Wk F WEIGHT (KG) 2025-07-15 04:27:12 115.5 kg F Residual kt/v 2025-07-15 04:27:12 F KT/V PRESCRIBED 2025-07-15 04:27:12 1.75 F VT (KT/V TX VOL) 2025-07-15 04:27:12 64.3 L F VM (KT/V MEAN VOL) 2025-07-15 04:27:12 59.1 F Total Kt/V 2025-07-15 04:27:12 0.98 F nPCR 2025-07-15 04:27:12 0.58 G/KG/D F AMPUTATE FACTOR 2025-07-15 04:27:12 0.059 F TBW ([facility]) 2025-07-15 04:27:12 44.05 Liters F spKt/V 2025-07-15 04:27:12 0.98 F Std Renal KT/V 2025-07-15 04:27:12 N/A F stdKt/V (DIAL) 2025-07-15 04:27:12 N/A F eKt/V 2025-07-15 04:27:12 0.85 F stdKT/V Total 2025-07-15 04:27:12 N/A F TOTAL HOURS/WEEK DIALYSIS 2025-07-15 04:27:12 7 hrs F BLOOD FLOW-QWB 2025-07-15 04:27:12 399 F CURRENT KRU 2025-07-15 04:27:12 F Urea nitrogen [Mass/volume] in Serum or Plasma 2025-07-15 04:25:13 42 mg/dL F 9.0-23.0 Urea nitrogen [Mass/volume] in Serum or Plasma --post dialysis 2025-07-15 01:55:25 18 mg/dL F 9.0-23.0 URR% 2025-07-10 08:25:23 62 % F Dialyzer REJI 2025-07-10 08:25:23 1455 Calc F LENGTH OF DIALYSIS 2025-07-10 08:25:23 211 min F BSA [place] 2025-07-10 08:25:23 2.16 sq m F DIALYZER FLOW-QD 2025-07-10 08:25:23 800 mL/min F PATIENT AGE 2025-07-10 08:25:23 34 Years F WEIGHT - PRE DAY 1 2025-07-10 08:25:23 122.1 kg F WEIGHT - POST DAY 1 2025-07-10 08:25:23 118.8 kg F HEIGHT IN INCHES 2025-07-10 08:25:23 67 Inches F WEIGHT (KG) 2025-07-10 08:25:23 115.5 kg F Residual kt/v 2025-07-10 08:25:23 F VT (KT/V TX VOL) 2025-07-10 08:25:23 59.8 L F PRESCRIBED DAYS/WEEK 2025-07-10 08:25:23 3 Day/Wk F VM (KT/V MEAN VOL) 2025-07-10 08:25:23 57.4 F KT/V PRESCRIBED 2025-07-10 08:25:23 1.76 F nPCR 2025-07-10 08:25:23 0.31 G/KG/D F Total Kt/V 2025-07-10 08:25:23 1.07 F AMPUTATE FACTOR 2025-07-10 08:25:23 0.059 F TBW ([facility]) 2025-07-10 08:25:23 44.44 Liters F spKt/V 2025-07-10 08:25:23 1.07 F stdKT/V Total 2025-07-10 08:25:23 N/A F stdKt/V (DIAL) 2025-07-10 08:25:23 N/A F eKt/V 2025-07-10 08:25:23 0.92 F Std Renal KT/V 2025-07-10 08:25:23 N/A F TOTAL HOURS/WEEK DIALYSIS 2025-07-10 08:25:23 3 hrs F BLOOD FLOW-QWB 2025-07-10 08:25:23 400 F CURRENT KRU 2025-07-10 08:25:23 F Urea nitrogen [Mass/volume] in Serum or Plasma 2025-07-10 04:27:16 34 mg/dL F 9.0-23.0 Urea nitrogen [Mass/volume] in Serum or Plasma --post dialysis 2025-07-09 22:03:19 13 mg/dL F 9.0-23.0 Total Kt/V PATIENT AGE BLOOD FLOW-QWB nPCR eKt/V TBW ([facility]) URR% stdKT/V Total WEIGHT - PRE DAY 1 WEIGHT (KG) WEIGHT - POST DAY 1 DIALYZER FLOW-QD AMPUTATE FACTOR Dialyzer REJI Residual kt/v TOTAL HOURS/WEEK DIALYSIS KT/V PRESCRIBED VT (KT/V TX VOL) spKt/V LENGTH OF DIALYSIS HEIGHT IN INCHES Urea nitrogen [Mass/volume] in Serum or Plasma CURRENT KRU Std Renal KT/V VM (KT/V MEAN VOL) PRESCRIBED DAYS/WEEK BSA [facility] stdKt/V (DIAL) Urea nitrogen [Mass/volume] in Serum or Plasma WEIGHT - POST DAY 1 WEIGHT - PRE DAY 1 PATIENT AGE BSA [place] DIALYZER FLOW-QD LENGTH OF DIALYSIS Dialyzer REJI VM (KT/V MEAN VOL) PRESCRIBED DAYS/WEEK AMPUTATE FACTOR HEIGHT IN INCHES URR% KT/V PRESCRIBED WEIGHT (KG) stdKt/V (DIAL) eKt/V Residual kt/v Std Renal KT/V TBW ([facility]) stdKT/V Total VT (KT/V TX VOL) spKt/V BLOOD FLOW-QWB nPCR TOTAL HOURS/WEEK DIALYSIS Total Kt/V CURRENT KRU URR% Urea nitrogen [Mass/volume] in Serum or Plasma Dialyzer REJI DIALYZER FLOW-QD LENGTH OF DIALYSIS PATIENT AGE WEIGHT - PRE DAY 1 BSA [place] WEIGHT - POST DAY 1 HEIGHT IN INCHES PRESCRIBED DAYS/WEEK VM (KT/V MEAN VOL) Residual kt/v KT/V PRESCRIBED WEIGHT (KG) VT (KT/V TX VOL) Total Kt/V nPCR AMPUTATE FACTOR eKt/V stdKt/V (DIAL) Std Renal KT/V TBW ([facility]) spKt/V stdKT/V Total TOTAL HOURS/WEEK DIALYSIS BLOOD FLOW-QWB CURRENT KRU Urea nitrogen [Mass/volume] in Serum or Plasma URR% DIALYZER FLOW-QD Dialyzer REJI LENGTH OF DIALYSIS PATIENT AGE WEIGHT - POST DAY 1 WEIGHT - PRE DAY 1 BSA [place] HEIGHT IN INCHES WEIGHT (KG) PRESCRIBED DAYS/WEEK Residual kt/v VT (KT/V TX VOL) KT/V PRESCRIBED VM (KT/V MEAN VOL) Total Kt/V nPCR AMPUTATE FACTOR eKt/V spKt/V TBW ([facility]) stdKt/V (DIAL) Std Renal KT/V stdKT/V Total TOTAL HOURS/WEEK DIALYSIS BLOOD FLOW-QWB CURRENT KRU Anemia Description Draw Date Result/Unit Status Ref Range Result Comments HCT CALC HGBX3 2025-10-21 07:55:54 30.9 % F 37.0-47.0 Erythrocyte distribution width [Ratio] by Automated count 2025-10-21 07:55:13 16.7 % F 11.0-15.0 Erythrocytes [#/volume] in Blood by Automated count 2025-10-21 07:55:13 3.49 x 10^6 cells/uL F 3.85-5.2 Hematocrit [Volume Fraction] of Blood by Automated count 2025-10-21 07:55:13 35.9 % F 37.0-47.0 Hemoglobin [Mass/volume] in Blood 2025-10-21 07:55:13 10.3 g/dL F 12.0-16.0 MCV [Entitic volume] by Automated count 2025-10-21 07:55:13 102.7 fL F 80.0-100.0 Platelets [#/volume] in Blood by Automated count 2025-10-21 07:55:13 364 x 10^3 cells/uL F 140.0-450.0 MCHC [Mass/volume] by Automated count 2025-10-21 07:55:13 28.7 g/dL F 29.6-35.3 MCH [Entitic mass] by Automated count 2025-10-21 07:55:13 29.4 pg F 25.9-34.2 HCT CALC HGBX3 2025-10-14 00:12:06 33.3 % F 37.0-47.0 HCT CALC HGBX3 2025-10-14 00:12:06 33.3 % F 37.0-47.0 Erythrocyte distribution width [Ratio] by Automated count 2025-10-14 00:11:11 14.7 % F 11.0-15.0 Erythrocytes [#/volume] in Blood by Automated count 2025-10-14 00:11:11 3.75 x 10^6 cells/uL F 3.85-5.2 Hematocrit [Volume Fraction] of Blood by Automated count 2025-10-14 00:11:11 36.9 % F 37.0-47.0 MCV [Entitic volume] by Automated count 2025-10-14 00:11:11 98.5 fL F 80.0-100.0 Hemoglobin [Mass/volume] in Blood 2025-10-14 00:11:11 11.1 g/dL F 12.0-16.0 MCH [Entitic mass] by Automated count 2025-10-14 00:11:11 29.6 pg F 25.9-34.2 Platelets [#/volume] in Blood by Automated count 2025-10-14 00:11:11 383 x 10^3 cells/uL F 140.0-450.0 MCHC [Mass/volume] by Automated count 2025-10-14 00:11:11 30 g/dL F 29.6-35.3 MCV [Entitic volume] by Automated count 2025-10-14 00:11:11 98.5 fL F 80.0-100.0 Erythrocytes [#/volume] in Blood by Automated count 2025-10-14 00:11:11 3.75 x 10^6 cells/uL F 3.85-5.2 MCH [Entitic mass] by Automated count 2025-10-14 00:11:11 29.6 pg F 25.9-34.2 Hematocrit [Volume Fraction] of Blood by Automated count 2025-10-14 00:11:11 36.9 % F 37.0-47.0 MCHC [Mass/volume] by Automated count 2025-10-14 00:11:11 30 g/dL F 29.6-35.3 Erythrocyte distribution width [Ratio] by Automated count 2025-10-14 00:11:11 14.7 % F 11.0-15.0 Platelets [#/volume] in Blood by Automated count 2025-10-14 00:11:11 383 x 10^3 cells/uL F 140.0-450.0 Hemoglobin [Mass/volume] in Blood 2025-10-14 00:11:11 11.1 g/dL F 12.0-16.0 HCT CALC HGBX3 2025-10-12 02:12:14 F RECOLLECT - OUTDATED SPECIMEN,Unable to Calculate. MCHC [Mass/volume] by Automated count 2025-10-12 02:11:42 F RECOLLECT - OUTDATED SPECIMEN MCH [Entitic mass] by Automated count 2025-10-12 02:11:42 F RECOLLECT - OUTDATED SPECIMEN Platelets [#/volume] in Blood by Automated count 2025-10-12 02:11:42 F RECOLLECT - OUTDATED SPECIMEN Hemoglobin [Mass/volume] in Blood 2025-10-12 02:11:42 F RECOLLECT - OUTDATED SPECIMEN Erythrocyte distribution width [Ratio] by Automated count 2025-10-12 02:11:42 F RECOLLECT - OUTDATED SPECIMEN Erythrocytes [#/volume] in Blood by Automated count 2025-10-12 02:11:42 F RECOLLECT - OUTDATED SPECIMEN Hematocrit [Volume Fraction] of Blood by Automated count 2025-10-12 02:11:42 F RECOLLECT - OUTDATED SPECIMEN MCV [Entitic volume] by Automated count 2025-10-12 02:11:42 F RECOLLECT - OUTDATED SPECIMEN,NOTE: MCV may be falsely elevated in aged samples (approximately 72 hours). HCT CALC HGBX3 2025-10-01 16:16:52 27.9 % F 37.0-47.0 Hematocrit [Volume Fraction] of Blood by Automated count 2025-10-01 16:16:12 30.8 % F 37.0-47.0 Platelets [#/volume] in Blood by Automated count 2025-10-01 16:16:12 368 x 10^3 cells/uL F 140.0-450.0 Erythrocyte distribution width [Ratio] by Automated count 2025-10-01 16:16:12 16.7 % F 11.0-15.0 MCH [Entitic mass] by Automated count 2025-10-01 16:16:12 30.2 pg F 25.9-34.2 MCHC [Mass/volume] by Automated count 2025-10-01 16:16:12 30 g/dL F 29.6-35.3 Erythrocytes [#/volume] in Blood by Automated count 2025-10-01 16:16:12 3.06 x 10^6 cells/uL F 3.85-5.2 MCV [Entitic volume] by Automated count 2025-10-01 16:16:12 100.7 fL F 80.0-100.0 Hemoglobin [Mass/volume] in Blood 2025-10-01 16:16:12 9.3 g/dL F 12.0-16.0 HCT CALC HGBX3 2025-09-23 03:17:03 26.4 % F 37.0-47.0 Hematocrit [Volume Fraction] of Blood by Automated count 2025-09-23 03:16:18 30.8 % F 37.0-47.0 Erythrocyte distribution width [Ratio] by Automated count 2025-09-23 03:16:18 17.1 % F 11.0-15.0 Erythrocytes [#/volume] in Blood by Automated count 2025-09-23 03:16:18 3.01 x 10^6 cells/uL F 3.85-5.2 Hemoglobin [Mass/volume] in Blood 2025-09-23 03:16:18 8.8 g/dL F 12.0-16.0 MCV [Entitic volume] by Automated count 2025-09-23 03:16:18 102.2 fL F 80.0-100.0 MCH [Entitic mass] by Automated count 2025-09-23 03:16:18 29.1 pg F 25.9-34.2 Platelets [#/volume] in Blood by Automated count 2025-09-23 03:16:18 387 x 10^3 cells/uL F 140.0-450.0 MCHC [Mass/volume] by Automated count 2025-09-23 03:16:18 28.5 g/dL F 29.6-35.3 IRON SATURATION 2025-09-23 01:51:51 12 % F 16.0-46.0 TIBC 2025-09-23 01:51:51 265 ug/dL F 250.0-425.0 Iron [Mass/volume] in Serum or Plasma 2025-09-23 01:44:27 33 ug/dL F 50.0-170.0 Iron binding capacity.unsaturated [Mass/volume] in Serum or Plasma 2025-09-23 01:44:27 232 ug/dL F 80.0-375.0 Ferritin [Mass/volume] in Serum or Plasma 2025-09-22 19:15:24 192 ng/mL F 7.0-271.0 HCT CALC HGBX3 2025-09-09 18:17:09 28.5 % F 37.0-47.0 HCT CALC HGBX3 2025-09-09 18:17:09 28.5 % F 37.0-47.0 ABSOLUTE RETIC COUNT 2025-09-09 18:16:18 0.15 x 10^6 cells/uL F 0.035-0.127 Platelets [#/volume] in Blood by Automated count 2025-09-09 18:16:18 372 x 10^3 cells/uL F 140.0-450.0 Erythrocyte distribution width [Ratio] by Automated count 2025-09-09 18:16:18 17.8 % F 11.0-15.0 MCH [Entitic mass] by Automated count 2025-09-09 18:16:18 29.1 pg F 25.9-34.2 Hematocrit [Volume Fraction] of Blood by Automated count 2025-09-09 18:16:18 34.3 % F 37.0-47.0 MCHC [Mass/volume] by Automated count 2025-09-09 18:16:18 27.8 g/dL F 29.6-35.3 MCV [Entitic volume] by Automated count 2025-09-09 18:16:18 104.7 fL F 80.0-100.0 Erythrocyte distribution width [Ratio] by Automated count 2025-09-09 18:16:18 17.8 % F 11.0-15.0 Hematocrit [Volume Fraction] of Blood by Automated count 2025-09-09 18:16:18 34.3 % F 37.0-47.0 MCV [Entitic volume] by Automated count 2025-09-09 18:16:18 104.7 fL F 80.0-100.0 MCH [Entitic mass] by Automated count 2025-09-09 18:16:18 29.1 pg F 25.9-34.2 MCHC [Mass/volume] by Automated count 2025-09-09 18:16:18 27.8 g/dL F 29.6-35.3 Platelets [#/volume] in Blood by Automated count 2025-09-09 18:16:18 372 x 10^3 cells/uL F 140.0-450.0 ABSOLUTE RETIC COUNT 2025-09-09 18:16:18 0.15 x 10^6 cells/uL F 0.035-0.127 Reticulocytes/100 erythrocytes in Blood by Automated count 2025-09-09 18:16:16 4.57 % F 0.7-2.5 Hemoglobin [Mass/volume] in Blood 2025-09-09 18:16:16 9.5 g/dL F 12.0-16.0 Erythrocytes [#/volume] in Blood by Automated count 2025-09-09 18:16:16 3.27 x 10^6 cells/uL F 3.85-5.2 Erythrocytes [#/volume] in Blood by Automated count 2025-09-09 18:16:16 3.27 x 10^6 cells/uL F 3.85-5.2 Hemoglobin [Mass/volume] in Blood 2025-09-09 18:16:16 9.5 g/dL F 12.0-16.0 Reticulocytes/100 erythrocytes in Blood by Automated count 2025-09-09 18:16:16 4.57 % F 0.7-2.5 HCT CALC HGBX3 2025-09-03 21:30:02 28.5 % F 37.0-47.0 HCT CALC HGBX3 2025-09-03 21:30:02 28.5 % F 37.0-47.0 Erythrocytes [#/volume] in Blood by Automated count 2025-09-03 21:29:11 3.31 x 10^6 cells/uL F 3.85-5.2 Hematocrit [Volume Fraction] of Blood by Automated count 2025-09-03 21:29:11 32.8 % F 37.0-47.0 Hemoglobin [Mass/volume] in Blood 2025-09-03 21:29:11 9.5 g/dL F 12.0-16.0 MCV [Entitic volume] by Automated count 2025-09-03 21:29:11 99.1 fL F 80.0-100.0 Erythrocytes [#/volume] in Blood by Automated count 2025-09-03 21:29:11 3.31 x 10^6 cells/uL F 3.85-5.2 Hematocrit [Volume Fraction] of Blood by Automated count 2025-09-03 21:29:11 32.8 % F 37.0-47.0 Hemoglobin [Mass/volume] in Blood 2025-09-03 21:29:11 9.5 g/dL F 12.0-16.0 MCV [Entitic volume] by Automated count 2025-09-03 21:29:11 99.1 fL F 80.0-100.0 Erythrocyte distribution width [Ratio] by Automated count 2025-09-03 21:29:10 16.2 % F 11.0-15.0 MCH [Entitic mass] by Automated count 2025-09-03 21:29:10 28.7 pg F 25.9-34.2 MCHC [Mass/volume] by Automated count 2025-09-03 21:29:10 28.9 g/dL F 29.6-35.3 Platelets [#/volume] in Blood by Automated count 2025-09-03 21:29:10 428 x 10^3 cells/uL F 140.0-450.0 Erythrocyte distribution width [Ratio] by Automated count 2025-09-03 21:29:10 16.2 % F 11.0-15.0 MCH [Entitic mass] by Automated count 2025-09-03 21:29:10 28.7 pg F 25.9-34.2 Platelets [#/volume] in Blood by Automated count 2025-09-03 21:29:10 428 x 10^3 cells/uL F 140.0-450.0 MCHC [Mass/volume] by Automated count 2025-09-03 21:29:10 28.9 g/dL F 29.6-35.3 HCT CALC HGBX3 2025-08-26 02:19:11 30.6 % F 37.0-47.0 HCT CALC HGBX3 2025-08-26 02:19:11 30.6 % F 37.0-47.0 Erythrocyte distribution width [Ratio] by Automated count 2025-08-26 02:18:09 15.1 % F 11.0-15.0 Erythrocytes [#/volume] in Blood by Automated count 2025-08-26 02:18:09 3.56 x 10^6 cells/uL F 3.85-5.2 Hematocrit [Volume Fraction] of Blood by Automated count 2025-08-26 02:18:09 34.6 % F 37.0-47.0 Hemoglobin [Mass/volume] in Blood 2025-08-26 02:18:09 10.2 g/dL F 12.0-16.0 MCV [Entitic volume] by Automated count 2025-08-26 02:18:09 97.2 fL F 80.0-100.0 MCH [Entitic mass] by Automated count 2025-08-26 02:18:09 28.7 pg F 25.9-34.2 Platelets [#/volume] in Blood by Automated count 2025-08-26 02:18:09 412 x 10^3 cells/uL F 140.0-450.0 MCHC [Mass/volume] by Automated count 2025-08-26 02:18:09 29.5 g/dL F 29.6-35.3 Erythrocyte distribution width [Ratio] by Automated count 2025-08-26 02:18:09 15.1 % F 11.0-15.0 Hematocrit [Volume Fraction] of Blood by Automated count 2025-08-26 02:18:09 34.6 % F 37.0-47.0 Erythrocytes [#/volume] in Blood by Automated count 2025-08-26 02:18:09 3.56 x 10^6 cells/uL F 3.85-5.2 Hemoglobin [Mass/volume] in Blood 2025-08-26 02:18:09 10.2 g/dL F 12.0-16.0 MCH [Entitic mass] by Automated count 2025-08-26 02:18:09 28.7 pg F 25.9-34.2 MCV [Entitic volume] by Automated count 2025-08-26 02:18:09 97.2 fL F 80.0-100.0 Platelets [#/volume] in Blood by Automated count 2025-08-26 02:18:09 412 x 10^3 cells/uL F 140.0-450.0 MCHC [Mass/volume] by Automated count 2025-08-26 02:18:09 29.5 g/dL F 29.6-35.3 HCT CALC HGBX3 2025-08-20 23:21:16 30 % F 37.0-47.0 HCT CALC HGBX3 2025-08-20 23:21:16 30 % F 37.0-47.0 Erythrocyte distribution width [Ratio] by Automated count 2025-08-20 23:20:14 16 % F 11.0-15.0 Erythrocytes [#/volume] in Blood by Automated count 2025-08-20 23:20:14 3.55 x 10^6 cells/uL F 3.85-5.2 Hematocrit [Volume Fraction] of Blood by Automated count 2025-08-20 23:20:14 34.8 % F 37.0-47.0 Hemoglobin [Mass/volume] in Blood 2025-08-20 23:20:14 10 g/dL F 12.0-16.0 MCV [Entitic volume] by Automated count 2025-08-20 23:20:14 98.1 fL F 80.0-100.0 MCH [Entitic mass] by Automated count 2025-08-20 23:20:14 28.1 pg F 25.9-34.2 MCHC [Mass/volume] by Automated count 2025-08-20 23:20:14 28.7 g/dL F 29.6-35.3 Platelets [#/volume] in Blood by Automated count 2025-08-20 23:20:14 367 x 10^3 cells/uL F 140.0-450.0 Erythrocytes [#/volume] in Blood by Automated count 2025-08-20 23:20:14 3.55 x 10^6 cells/uL F 3.85-5.2 Erythrocyte distribution width [Ratio] by Automated count 2025-08-20 23:20:14 16 % F 11.0-15.0 Hematocrit [Volume Fraction] of Blood by Automated count 2025-08-20 23:20:14 34.8 % F 37.0-47.0 Hemoglobin [Mass/volume] in Blood 2025-08-20 23:20:14 10 g/dL F 12.0-16.0 MCV [Entitic volume] by Automated count 2025-08-20 23:20:14 98.1 fL F 80.0-100.0 MCH [Entitic mass] by Automated count 2025-08-20 23:20:14 28.1 pg F 25.9-34.2 Platelets [#/volume] in Blood by Automated count 2025-08-20 23:20:14 367 x 10^3 cells/uL F 140.0-450.0 MCHC [Mass/volume] by Automated count 2025-08-20 23:20:14 28.7 g/dL F 29.6-35.3 HCT CALC HGBX3 2025-08-13 15:06:06 31.5 % F 37.0-47.0 HCT CALC HGBX3 2025-08-13 15:06:06 31.5 % F 37.0-47.0 Erythrocytes [#/volume] in Blood by Automated count 2025-08-13 15:05:16 3.68 x 10^6 cells/uL F 3.85-5.2 MCH [Entitic mass] by Automated count 2025-08-13 15:05:16 28.7 pg F 25.9-34.2 MCV [Entitic volume] by Automated count 2025-08-13 15:05:16 95.4 fL F 80.0-100.0 MCHC [Mass/volume] by Automated count 2025-08-13 15:05:16 30.1 g/dL F 29.6-35.3 Erythrocytes [#/volume] in Blood by Automated count 2025-08-13 15:05:16 3.68 x 10^6 cells/uL F 3.85-5.2 MCH [Entitic mass] by Automated count 2025-08-13 15:05:16 28.7 pg F 25.9-34.2 MCHC [Mass/volume] by Automated count 2025-08-13 15:05:16 30.1 g/dL F 29.6-35.3 MCV [Entitic volume] by Automated count 2025-08-13 15:05:16 95.4 fL F 80.0-100.0 Hematocrit [Volume Fraction] of Blood by Automated count 2025-08-13 15:05:14 35.1 % F 37.0-47.0 Erythrocyte distribution width [Ratio] by Automated count 2025-08-13 15:05:14 16.9 % F 11.0-15.0 Hemoglobin [Mass/volume] in Blood 2025-08-13 15:05:14 10.5 g/dL F 12.0-16.0 Platelets [#/volume] in Blood by Automated count 2025-08-13 15:05:14 375 x 10^3 cells/uL F 140.0-450.0 Erythrocyte distribution width [Ratio] by Automated count 2025-08-13 15:05:14 16.9 % F 11.0-15.0 Hematocrit [Volume Fraction] of Blood by Automated count 2025-08-13 15:05:14 35.1 % F 37.0-47.0 Hemoglobin [Mass/volume] in Blood 2025-08-13 15:05:14 10.5 g/dL F 12.0-16.0 Platelets [#/volume] in Blood by Automated count 2025-08-13 15:05:14 375 x 10^3 cells/uL F 140.0-450.0 HCT CALC HGBX3 2025-08-04 15:01:16 31.8 % F 37.0-47.0 MCH [Entitic mass] by Automated count 2025-08-04 15:00:13 28.9 pg F 25.9-34.2 Erythrocyte distribution width [Ratio] by Automated count 2025-08-04 15:00:11 14.5 % F 11.0-15.0 Erythrocytes [#/volume] in Blood by Automated count 2025-08-04 15:00:11 3.68 x 10^6 cells/uL F 3.85-5.2 Hematocrit [Volume Fraction] of Blood by Automated count 2025-08-04 15:00:11 35 % F 37.0-47.0 Hemoglobin [Mass/volume] in Blood 2025-08-04 15:00:11 10.6 g/dL F 12.0-16.0 MCV [Entitic volume] by Automated count 2025-08-04 15:00:11 95.2 fL F 80.0-100.0 MCHC [Mass/volume] by Automated count 2025-08-04 15:00:11 30.4 g/dL F 29.6-35.3 Platelets [#/volume] in Blood by Automated count 2025-08-04 15:00:11 332 x 10^3 cells/uL F 140.0-450.0 ABSOLUTE RETIC COUNT 2025-08-04 14:48:08 0.063 x 10^6 cells/uL F 0.035-0.127 Reticulocytes/100 erythrocytes in Blood by Automated count 2025-08-04 14:48:08 1.65 % F 0.7-2.5 HCT CALC HGBX3 2025-07-28 16:41:56 32.7 % F 37.0-47.0 HCT CALC HGBX3 2025-07-28 16:41:56 32.7 % F 37.0-47.0 HCT CALC HGBX3 2025-07-28 16:41:56 32.7 % F 37.0-47.0 MCHC [Mass/volume] by Automated count 2025-07-28 16:41:08 29.1 g/dL F 29.6-35.3 Hemoglobin [Mass/volume] in Blood 2025-07-28 16:41:08 10.9 g/dL F 12.0-16.0 MCV [Entitic volume] by Automated count 2025-07-28 16:41:08 96.7 fL F 80.0-100.0 Erythrocyte distribution width [Ratio] by Automated count 2025-07-28 16:41:08 15.1 % F 11.0-15.0 Erythrocytes [#/volume] in Blood by Automated count 2025-07-28 16:41:08 3.89 x 10^6 cells/uL F 3.85-5.2 Hematocrit [Volume Fraction] of Blood by Automated count 2025-07-28 16:41:08 37.6 % F 37.0-47.0 MCH [Entitic mass] by Automated count 2025-07-28 16:41:08 28.1 pg F 25.9-34.2 Platelets [#/volume] in Blood by Automated count 2025-07-28 16:41:08 327 x 10^3 cells/uL F 140.0-450.0 Erythrocyte distribution width [Ratio] by Automated count 2025-07-28 16:41:08 15.1 % F 11.0-15.0 Platelets [#/volume] in Blood by Automated count 2025-07-28 16:41:08 327 x 10^3 cells/uL F 140.0-450.0 Hemoglobin [Mass/volume] in Blood 2025-07-28 16:41:08 10.9 g/dL F 12.0-16.0 MCH [Entitic mass] by Automated count 2025-07-28 16:41:08 28.1 pg F 25.9-34.2 MCHC [Mass/volume] by Automated count 2025-07-28 16:41:08 29.1 g/dL F 29.6-35.3 Erythrocytes [#/volume] in Blood by Automated count 2025-07-28 16:41:08 3.89 x 10^6 cells/uL F 3.85-5.2 Hematocrit [Volume Fraction] of Blood by Automated count 2025-07-28 16:41:08 37.6 % F 37.0-47.0 MCV [Entitic volume] by Automated count 2025-07-28 16:41:08 96.7 fL F 80.0-100.0 Erythrocyte distribution width [Ratio] by Automated count 2025-07-28 16:41:08 15.1 % F 11.0-15.0 Hematocrit [Volume Fraction] of Blood by Automated count 2025-07-28 16:41:08 37.6 % F 37.0-47.0 Hemoglobin [Mass/volume] in Blood 2025-07-28 16:41:08 10.9 g/dL F 12.0-16.0 MCH [Entitic mass] by Automated count 2025-07-28 16:41:08 28.1 pg F 25.9-34.2 Erythrocytes [#/volume] in Blood by Automated count 2025-07-28 16:41:08 3.89 x 10^6 cells/uL F 3.85-5.2 MCV [Entitic volume] by Automated count 2025-07-28 16:41:08 96.7 fL F 80.0-100.0 MCHC [Mass/volume] by Automated count 2025-07-28 16:41:08 29.1 g/dL F 29.6-35.3 Platelets [#/volume] in Blood by Automated count 2025-07-28 16:41:08 327 x 10^3 cells/uL F 140.0-450.0 HCT CALC HGBX3 2025-07-21 16:47:54 35.4 % F 37.0-47.0 HCT CALC HGBX3 2025-07-21 16:47:54 35.4 % F 37.0-47.0 HCT CALC HGBX3 2025-07-21 16:47:54 35.4 % F 37.0-47.0 Erythrocyte distribution width [Ratio] by Automated count 2025-07-21 16:47:12 15.2 % F 11.0-15.0 Hemoglobin [Mass/volume] in Blood 2025-07-21 16:47:12 11.8 g/dL F 12.0-16.0 MCV [Entitic volume] by Automated count 2025-07-21 16:47:12 97.1 fL F 80.0-100.0 Hematocrit [Volume Fraction] of Blood by Automated count 2025-07-21 16:47:12 39.3 % F 37.0-47.0 Erythrocytes [#/volume] in Blood by Automated count 2025-07-21 16:47:12 4.05 x 10^6 cells/uL F 3.85-5.2 MCH [Entitic mass] by Automated count 2025-07-21 16:47:12 29.1 pg F 25.9-34.2 MCHC [Mass/volume] by Automated count 2025-07-21 16:47:12 29.9 g/dL F 29.6-35.3 Platelets [#/volume] in Blood by Automated count 2025-07-21 16:47:12 366 x 10^3 cells/uL F 140.0-450.0 Erythrocyte distribution width [Ratio] by Automated count 2025-07-21 16:47:12 15.2 % F 11.0-15.0 Erythrocytes [#/volume] in Blood by Automated count 2025-07-21 16:47:12 4.05 x 10^6 cells/uL F 3.85-5.2 Hematocrit [Volume Fraction] of Blood by Automated count 2025-07-21 16:47:12 39.3 % F 37.0-47.0 MCV [Entitic volume] by Automated count 2025-07-21 16:47:12 97.1 fL F 80.0-100.0 Hemoglobin [Mass/volume] in Blood 2025-07-21 16:47:12 11.8 g/dL F 12.0-16.0 MCH [Entitic mass] by Automated count 2025-07-21 16:47:12 29.1 pg F 25.9-34.2 MCHC [Mass/volume] by Automated count 2025-07-21 16:47:12 29.9 g/dL F 29.6-35.3 Platelets [#/volume] in Blood by Automated count 2025-07-21 16:47:12 366 x 10^3 cells/uL F 140.0-450.0 Erythrocytes [#/volume] in Blood by Automated count 2025-07-21 16:47:12 4.05 x 10^6 cells/uL F 3.85-5.2 Hemoglobin [Mass/volume] in Blood 2025-07-21 16:47:12 11.8 g/dL F 12.0-16.0 Hematocrit [Volume Fraction] of Blood by Automated count 2025-07-21 16:47:12 39.3 % F 37.0-47.0 MCH [Entitic mass] by Automated count 2025-07-21 16:47:12 29.1 pg F 25.9-34.2 MCHC [Mass/volume] by Automated count 2025-07-21 16:47:12 29.9 g/dL F 29.6-35.3 Erythrocyte distribution width [Ratio] by Automated count 2025-07-21 16:47:12 15.2 % F 11.0-15.0 Platelets [#/volume] in Blood by Automated count 2025-07-21 16:47:12 366 x 10^3 cells/uL F 140.0-450.0 MCV [Entitic volume] by Automated count 2025-07-21 16:47:12 97.1 fL F 80.0-100.0 HCT CALC HGBX3 2025-07-16 21:43:00 35.1 % F 37.0-47.0 Erythrocyte distribution width [Ratio] by Automated count 2025-07-16 21:42:13 15.5 % F 11.0-15.0 Erythrocytes [#/volume] in Blood by Automated count 2025-07-16 21:42:13 4.04 x 10^6 cells/uL F 3.85-5.2 Hematocrit [Volume Fraction] of Blood by Automated count 2025-07-16 21:42:13 41.4 % F 37.0-47.0 Hemoglobin [Mass/volume] in Blood 2025-07-16 21:42:13 11.7 g/dL F 12.0-16.0 MCH [Entitic mass] by Automated count 2025-07-16 21:42:13 28.9 pg F 25.9-34.2 MCHC [Mass/volume] by Automated count 2025-07-16 21:42:13 28.2 g/dL F 29.6-35.3 MCV [Entitic volume] by Automated count 2025-07-16 21:42:13 102.4 fL F 80.0-100.0 Platelets [#/volume] in Blood by Automated count 2025-07-16 21:42:13 432 x 10^3 cells/uL F 140.0-450.0 HCT CALC HGBX3 2025-07-09 21:42:06 35.7 % F 37.0-47.0 Erythrocyte distribution width [Ratio] by Automated count 2025-07-09 21:41:11 15.8 % F 11.0-15.0 Erythrocytes [#/volume] in Blood by Automated count 2025-07-09 21:41:11 4.15 x 10^6 cells/uL F 3.85-5.2 Hematocrit [Volume Fraction] of Blood by Automated count 2025-07-09 21:41:11 42 % F 37.0-47.0 Hemoglobin [Mass/volume] in Blood 2025-07-09 21:41:11 11.9 g/dL F 12.0-16.0 MCHC [Mass/volume] by Automated count 2025-07-09 21:41:11 28.4 g/dL F 29.6-35.3 MCV [Entitic volume] by Automated count 2025-07-09 21:41:11 101 fL F 80.0-100.0 MCH [Entitic mass] by Automated count 2025-07-09 21:41:11 28.7 pg F 25.9-34.2 Platelets [#/volume] in Blood by Automated count 2025-07-09 21:41:11 415 x 10^3 cells/uL F 140.0-450.0 HCT CALC HGBX3 2025-06-30 13:25:55 34.8 % F 37.0-47.0 Erythrocyte distribution width [Ratio] by Automated count 2025-06-30 13:25:16 16.1 % F 11.0-15.0 Erythrocytes [#/volume] in Blood by Automated count 2025-06-30 13:25:16 3.9 x 10^6 cells/uL F 3.85-5.2 Hematocrit [Volume Fraction] of Blood by Automated count 2025-06-30 13:25:16 39.2 % F 37.0-47.0 Hemoglobin [Mass/volume] in Blood 2025-06-30 13:25:16 11.6 g/dL F 12.0-16.0 MCV [Entitic volume] by Automated count 2025-06-30 13:25:16 100.5 fL F 80.0-100.0 MCH [Entitic mass] by Automated count 2025-06-30 13:25:16 29.9 pg F 25.9-34.2 MCHC [Mass/volume] by Automated count 2025-06-30 13:25:16 29.7 g/dL F 29.6-35.3 Platelets [#/volume] in Blood by Automated count 2025-06-30 13:25:16 313 x 10^3 cells/uL F 140.0-450.0 FluidBP Description Draw Date Result/Unit Status Ref Range Result Comments Sodium [Moles/volume] in Serum or Plasma 2025-10-20 18:31:16 138 mEq/L F 136.0-145.0 Sodium [Moles/volume] in Serum or Plasma 2025-09-23 01:44:27 142 mEq/L F 136.0-145.0 Sodium [Moles/volume] in Serum or Plasma 2025-08-25 17:22:05 141 mEq/L F 136.0-145.0 Sodium [Moles/volume] in Serum or Plasma 2025-08-25 17:22:05 141 mEq/L F 136.0-145.0 Sodium [Moles/volume] in Serum or Plasma 2025-07-22 05:50:15 135 mEq/L F 136.0-145.0 Sodium [Moles/volume] in Serum or Plasma 2025-07-22 05:50:15 135 mEq/L F 136.0-145.0 Sodium [Moles/volume] in Serum or Plasma 2025-07-22 05:50:15 135 mEq/L F 136.0-145.0 General Description Draw Date Result/Unit Status Ref Range Result Comments Chloride [Moles/volume] in Serum or Plasma 2025-10-20 18:31:16 108 mEq/L F 98.0-107.0 Alanine aminotransferase [Enzymatic activity/volume] in Serum or Plasma 2025-10-20 16:23:13 12 U/L F 10.0-49.0 Aspartate aminotransferase [Enzymatic activity/volume] in Serum or Plasma 2025-10-20 16:23:13 9 U/L F 0.0-33.0 Chloride [Moles/volume] in Serum or Plasma 2025-09-23 01:44:27 109 mEq/L F 98.0-107.0 Aluminum [Mass/volume] in Serum or Plasma 2025-09-22 20:19:36 10 ug/L F 0.0-9.0 Alanine aminotransferase [Enzymatic activity/volume] in Serum or Plasma 2025-09-22 18:20:21 77 U/L F 10.0-49.0 Aspartate aminotransferase [Enzymatic activity/volume] in Serum or Plasma 2025-09-22 18:20:21 55 U/L F 0.0-33.0 Chloride [Moles/volume] in Serum or Plasma 2025-08-25 17:22:05 112 mEq/L F 98.0-107.0 Chloride [Moles/volume] in Serum or Plasma 2025-08-25 17:22:05 112 mEq/L F 98.0-107.0 Alanine aminotransferase [Enzymatic activity/volume] in Serum or Plasma 2025-08-25 13:19:17 76 U/L F 10.0-49.0 Aspartate aminotransferase [Enzymatic activity/volume] in Serum or Plasma 2025-08-25 13:19:17 60 U/L F 0.0-33.0 Alanine aminotransferase [Enzymatic activity/volume] in Serum or Plasma 2025-08-25 13:19:17 76 U/L F 10.0-49.0 Aspartate aminotransferase [Enzymatic activity/volume] in Serum or Plasma 2025-08-25 13:19:17 60 U/L F 0.0-33.0 Chloride [Moles/volume] in Serum or Plasma 2025-07-22 05:50:15 104 mEq/L F 98.0-107.0 Chloride [Moles/volume] in Serum or Plasma 2025-07-22 05:50:15 104 mEq/L F 98.0-107.0 Chloride [Moles/volume] in Serum or Plasma 2025-07-22 05:50:15 104 mEq/L F 98.0-107.0 Alanine aminotransferase [Enzymatic activity/volume] in Serum or Plasma 2025-07-21 16:01:13 8 U/L F 10.0-49.0 Aspartate aminotransferase [Enzymatic activity/volume] in Serum or Plasma 2025-07-21 16:01:13 8 U/L F 0.0-33.0 Alanine aminotransferase [Enzymatic activity/volume] in Serum or Plasma 2025-07-21 16:01:13 8 U/L F 10.0-49.0 Aspartate aminotransferase [Enzymatic activity/volume] in Serum or Plasma 2025-07-21 16:01:13 8 U/L F 0.0-33.0 Aspartate aminotransferase [Enzymatic activity/volume] in Serum or Plasma 2025-07-21 16:01:13 8 U/L F 0.0-33.0 Alanine aminotransferase [Enzymatic activity/volume] in Serum or Plasma 2025-07-21 16:01:13 8 U/L F 10.0-49.0 InfectionVaccination Description Draw Date Result/Unit Status Ref Range Result Comments Basophils/100 leukocytes in Blood by Automated count 2025-10-21 07:55:13 0.4 % F Neutrophils/100 leukocytes in Blood by Automated count 2025-10-21 07:55:13 79.4 % F Lymphocytes/100 leukocytes in Blood by Automated count 2025-10-21 07:55:13 11.8 % F Monocytes/100 leukocytes in Blood by Automated count 2025-10-21 07:55:13 4.2 % F Eosinophils/100 leukocytes in Blood by Automated count 2025-10-21 07:55:13 4.2 % F Leukocytes [#/volume] in Blood by Automated count 2025-10-21 07:55:13 8.7 x 10^3 cells/uL F 4.0-11.0 Neutrophils [#/volume] in Blood by Automated count 2025-10-21 07:55:13 6884 Cells/uL F 2000.0-8800. 0 Lymphocytes [#/volume] in Blood by Automated count 2025-10-21 07:55:13 1023 Cells/uL F 620.0-3660.0 Monocytes [#/volume] in Blood by Automated count 2025-10-21 07:55:13 364 Cells/uL F 0.0-1100.0 Basophils [#/volume] in Blood by Automated count 2025-10-21 07:55:13 35 Cells/uL F 0.0-400.0 Eosinophils [#/volume] in Blood by Automated count 2025-10-21 07:55:13 364 Cells/uL F 0.0-700.0 Basophils/100 leukocytes in Blood by Automated count 2025-10-14 00:11:11 0.4 % F Lymphocytes/100 leukocytes in Blood by Automated count 2025-10-14 00:11:11 17.8 % F Neutrophils/100 leukocytes in Blood by Automated count 2025-10-14 00:11:11 70.9 % F Eosinophils/100 leukocytes in Blood by Automated count 2025-10-14 00:11:11 5.3 % F Monocytes/100 leukocytes in Blood by Automated count 2025-10-14 00:11:11 5.6 % F Leukocytes [#/volume] in Blood by Automated count 2025-10-14 00:11:11 14.2 x 10^3 cells/uL F 4.0-11.0 Neutrophils [#/volume] in Blood by Automated count 2025-10-14 00:11:11 28536 Cells/uL F 2000.0-8800. 0 Lymphocytes [#/volume] in Blood by Automated count 2025-10-14 00:11:11 2533 Cells/uL F 620.0-3660.0 Basophils [#/volume] in Blood by Automated count 2025-10-14 00:11:11 57 Cells/uL F 0.0-400.0 Eosinophils [#/volume] in Blood by Automated count 2025-10-14 00:11:11 754 Cells/uL F 0.0-700.0 Monocytes [#/volume] in Blood by Automated count 2025-10-14 00:11:11 797 Cells/uL F 0.0-1100.0 Neutrophils [#/volume] in Blood by Automated count 2025-10-14 00:11:11 13203 Cells/uL F 2000.0-8800. 0 Lymphocytes/100 leukocytes in Blood by Automated count 2025-10-14 00:11:11 17.8 % F Eosinophils/100 leukocytes in Blood by Automated count 2025-10-14 00:11:11 5.3 % F Monocytes [#/volume] in Blood by Automated count 2025-10-14 00:11:11 797 Cells/uL F 0.0-1100.0 Basophils/100 leukocytes in Blood by Automated count 2025-10-14 00:11:11 0.4 % F Monocytes/100 leukocytes in Blood by Automated count 2025-10-14 00:11:11 5.6 % F Eosinophils [#/volume] in Blood by Automated count 2025-10-14 00:11:11 754 Cells/uL F 0.0-700.0 Basophils [#/volume] in Blood by Automated count 2025-10-14 00:11:11 57 Cells/uL F 0.0-400.0 Neutrophils/100 leukocytes in Blood by Automated count 2025-10-14 00:11:11 70.9 % F Leukocytes [#/volume] in Blood by Automated count 2025-10-14 00:11:11 14.2 x 10^3 cells/uL F 4.0-11.0 Lymphocytes [#/volume] in Blood by Automated count 2025-10-14 00:11:11 2533 Cells/uL F 620.0-3660.0 Basophils [#/volume] in Blood by Automated count 2025-10-12 02:11:42 F RECOLLECT - OUTDATED SPECIMEN Neutrophils [#/volume] in Blood by Automated count 2025-10-12 02:11:42 F RECOLLECT - OUTDATED SPECIMEN Neutrophils/100 leukocytes in Blood by Automated count 2025-10-12 02:11:42 F WBC differential count percentage results will continue to be reported without reference ranges per [employer] guidelines and will not be flagged Normal of Abnormal. Refer to Absolute Differential counts for reference ranges.,RECOLLECT - OUTDATED SPECIMEN Lymphocytes [#/volume] in Blood by Automated count 2025-10-12 02:11:42 F RECOLLECT - OUTDATED SPECIMEN Eosinophils [#/volume] in Blood by Automated count 2025-10-12 02:11:42 F RECOLLECT - OUTDATED SPECIMEN Monocytes [#/volume] in Blood by Automated count 2025-10-12 02:11:42 F RECOLLECT - OUTDATED SPECIMEN Leukocytes [#/volume] in Blood by Automated count 2025-10-12 02:11:42 F RECOLLECT - OUTDATED SPECIMEN Eosinophils/100 leukocytes in Blood by Automated count 2025-10-12 02:11:42 F RECOLLECT - OUTDATED SPECIMEN Basophils/100 leukocytes in Blood by Automated count 2025-10-12 02:11:42 F RECOLLECT - OUTDATED SPECIMEN Monocytes/100 leukocytes in Blood by Automated count 2025-10-12 02:11:42 F RECOLLECT - OUTDATED SPECIMEN Lymphocytes/100 leukocytes in Blood by Automated count 2025-10-12 02:11:42 F RECOLLECT - OUTDATED SPECIMEN Basophils/100 leukocytes in Blood by Automated count 2025-10-01 16:16:12 0.4 % F Neutrophils/100 leukocytes in Blood by Automated count 2025-10-01 16:16:12 75.3 % F Lymphocytes/100 leukocytes in Blood by Automated count 2025-10-01 16:16:12 16.1 % F Leukocytes [#/volume] in Blood by Automated count 2025-10-01 16:16:12 11.6 x 10^3 cells/uL F 4.0-11.0 Eosinophils/100 leukocytes in Blood by Automated count 2025-10-01 16:16:12 4.1 % F Eosinophils [#/volume] in Blood by Automated count 2025-10-01 16:16:12 474 Cells/uL F 0.0-700.0 Monocytes [#/volume] in Blood by Automated count 2025-10-01 16:16:12 474 Cells/uL F 0.0-1100.0 Basophils [#/volume] in Blood by Automated count 2025-10-01 16:16:12 46 Cells/uL F 0.0-400.0 Lymphocytes [#/volume] in Blood by Automated count 2025-10-01 16:16:12 1863 Cells/uL F 620.0-3660.0 Monocytes/100 leukocytes in Blood by Automated count 2025-10-01 16:16:12 4.1 % F Neutrophils [#/volume] in Blood by Automated count 2025-10-01 16:16:12 8712 Cells/uL F 2000.0-8800. 0 Monocytes [#/volume] in Blood by Automated count 2025-09-23 03:16:20 490 Cells/uL F 0.0-1100.0 Neutrophils/100 leukocytes in Blood by Automated count 2025-09-23 03:16:18 74.7 % F Basophils/100 leukocytes in Blood by Automated count 2025-09-23 03:16:18 0.5 % F Lymphocytes/100 leukocytes in Blood by Automated count 2025-09-23 03:16:18 16.5 % F Monocytes/100 leukocytes in Blood by Automated count 2025-09-23 03:16:18 4.2 % F Eosinophils/100 leukocytes in Blood by Automated count 2025-09-23 03:16:18 4 % F Leukocytes [#/volume] in Blood by Automated count 2025-09-23 03:16:18 11.7 x 10^3 cells/uL F 4.0-11.0 Neutrophils [#/volume] in Blood by Automated count 2025-09-23 03:16:18 8710 Cells/uL F 2000.0-8800. 0 Lymphocytes [#/volume] in Blood by Automated count 2025-09-23 03:16:18 1924 Cells/uL F 620.0-3660.0 Eosinophils [#/volume] in Blood by Automated count 2025-09-23 03:16:18 466 Cells/uL F 0.0-700.0 Basophils [#/volume] in Blood by Automated count 2025-09-23 03:16:18 58 Cells/uL F 0.0-400.0 Neutrophils/100 leukocytes in Blood by Automated count 2025-09-09 18:16:18 78.8 % F Lymphocytes/100 leukocytes in Blood by Automated count 2025-09-09 18:16:18 13.1 % F Lymphocytes [#/volume] in Blood by Automated count 2025-09-09 18:16:18 1569 Cells/uL F 620.0-3660.0 Neutrophils/100 leukocytes in Blood by Automated count 2025-09-09 18:16:18 78.8 % F Lymphocytes/100 leukocytes in Blood by Automated count 2025-09-09 18:16:18 13.1 % F Lymphocytes [#/volume] in Blood by Automated count 2025-09-09 18:16:18 1569 Cells/uL F 620.0-3660.0 Monocytes/100 leukocytes in Blood by Automated count 2025-09-09 18:16:16 4.7 % F Eosinophils/100 leukocytes in Blood by Automated count 2025-09-09 18:16:16 3 % F Basophils/100 leukocytes in Blood by Automated count 2025-09-09 18:16:16 0.3 % F Monocytes [#/volume] in Blood by Automated count 2025-09-09 18:16:16 563 Cells/uL F 0.0-1100.0 Eosinophils [#/volume] in Blood by Automated count 2025-09-09 18:16:16 359 Cells/uL F 0.0-700.0 Basophils [#/volume] in Blood by Automated count 2025-09-09 18:16:16 36 Cells/uL F 0.0-400.0 Neutrophils [#/volume] in Blood by Automated count 2025-09-09 18:16:16 9440 Cells/uL F 2000.0-8800. 0 Leukocytes [#/volume] in Blood by Automated count 2025-09-09 18:16:16 12 x 10^3 cells/uL F 4.0-11.0 Basophils/100 leukocytes in Blood by Automated count 2025-09-09 18:16:16 0.3 % F Monocytes/100 leukocytes in Blood by Automated count 2025-09-09 18:16:16 4.7 % F Leukocytes [#/volume] in Blood by Automated count 2025-09-09 18:16:16 12 x 10^3 cells/uL F 4.0-11.0 Eosinophils/100 leukocytes in Blood by Automated count 2025-09-09 18:16:16 3 % F Monocytes [#/volume] in Blood by Automated count 2025-09-09 18:16:16 563 Cells/uL F 0.0-1100.0 Neutrophils [#/volume] in Blood by Automated count 2025-09-09 18:16:16 9440 Cells/uL F 2000.0-8800. 0 Basophils [#/volume] in Blood by Automated count 2025-09-09 18:16:16 36 Cells/uL F 0.0-400.0 Eosinophils [#/volume] in Blood by Automated count 2025-09-09 18:16:16 359 Cells/uL F 0.0-700.0 Basophils/100 leukocytes in Blood by Automated count 2025-09-03 21:29:11 0.6 % F Neutrophils/100 leukocytes in Blood by Automated count 2025-09-03 21:29:11 71.9 % F Lymphocytes/100 leukocytes in Blood by Automated count 2025-09-03 21:29:11 19.7 % F Monocytes/100 leukocytes in Blood by Automated count 2025-09-03 21:29:11 4.2 % F Eosinophils/100 leukocytes in Blood by Automated count 2025-09-03 21:29:11 3.6 % F Neutrophils [#/volume] in Blood by Automated count 2025-09-03 21:29:11 8995 Cells/uL F 2000.0-8800. 0 Lymphocytes [#/volume] in Blood by Automated count 2025-09-03 21:29:11 2464 Cells/uL F 620.0-3660.0 Monocytes [#/volume] in Blood by Automated count 2025-09-03 21:29:11 525 Cells/uL F 0.0-1100.0 Basophils [#/volume] in Blood by Automated count 2025-09-03 21:29:11 75 Cells/uL F 0.0-400.0 Eosinophils [#/volume] in Blood by Automated count 2025-09-03 21:29:11 450 Cells/uL F 0.0-700.0 Basophils/100 leukocytes in Blood by Automated count 2025-09-03 21:29:11 0.6 % F Neutrophils/100 leukocytes in Blood by Automated count 2025-09-03 21:29:11 71.9 % F Lymphocytes/100 leukocytes in Blood by Automated count 2025-09-03 21:29:11 19.7 % F Monocytes/100 leukocytes in Blood by Automated count 2025-09-03 21:29:11 4.2 % F Eosinophils/100 leukocytes in Blood by Automated count 2025-09-03 21:29:11 3.6 % F Neutrophils [#/volume] in Blood by Automated count 2025-09-03 21:29:11 8995 Cells/uL F 2000.0-8800. 0 Lymphocytes [#/volume] in Blood by Automated count 2025-09-03 21:29:11 2464 Cells/uL F 620.0-3660.0 Monocytes [#/volume] in Blood by Automated count 2025-09-03 21:29:11 525 Cells/uL F 0.0-1100.0 Basophils [#/volume] in Blood by Automated count 2025-09-03 21:29:11 75 Cells/uL F 0.0-400.0 Eosinophils [#/volume] in Blood by Automated count 2025-09-03 21:29:11 450 Cells/uL F 0.0-700.0 Leukocytes [#/volume] in Blood by Automated count 2025-09-03 21:29:10 12.5 x 10^3 cells/uL F 4.0-11.0 Leukocytes [#/volume] in Blood by Automated count 2025-09-03 21:29:10 12.5 x 10^3 cells/uL F 4.0-11.0 Basophils/100 leukocytes in Blood by Automated count 2025-08-26 02:18:09 0.5 % F Neutrophils/100 leukocytes in Blood by Automated count 2025-08-26 02:18:09 82.6 % F Lymphocytes/100 leukocytes in Blood by Automated count 2025-08-26 02:18:09 11.2 % F Monocytes/100 leukocytes in Blood by Automated count 2025-08-26 02:18:09 3.5 % F Eosinophils/100 leukocytes in Blood by Automated count 2025-08-26 02:18:09 2.3 % F Leukocytes [#/volume] in Blood by Automated count 2025-08-26 02:18:09 12 x 10^3 cells/uL F 4.0-11.0 Neutrophils [#/volume] in Blood by Automated count 2025-08-26 02:18:09 9871 Cells/uL F 2000.0-8800. 0 Lymphocytes [#/volume] in Blood by Automated count 2025-08-26 02:18:09 1338 Cells/uL F 620.0-3660.0 Monocytes [#/volume] in Blood by Automated count 2025-08-26 02:18:09 418 Cells/uL F 0.0-1100.0 Basophils [#/volume] in Blood by Automated count 2025-08-26 02:18:09 60 Cells/uL F 0.0-400.0 Eosinophils [#/volume] in Blood by Automated count 2025-08-26 02:18:09 275 Cells/uL F 0.0-700.0 Basophils/100 leukocytes in Blood by Automated count 2025-08-26 02:18:09 0.5 % F Monocytes/100 leukocytes in Blood by Automated count 2025-08-26 02:18:09 3.5 % F Neutrophils/100 leukocytes in Blood by Automated count 2025-08-26 02:18:09 82.6 % F Lymphocytes/100 leukocytes in Blood by Automated count 2025-08-26 02:18:09 11.2 % F Leukocytes [#/volume] in Blood by Automated count 2025-08-26 02:18:09 12 x 10^3 cells/uL F 4.0-11.0 Eosinophils/100 leukocytes in Blood by Automated count 2025-08-26 02:18:09 2.3 % F Lymphocytes [#/volume] in Blood by Automated count 2025-08-26 02:18:09 1338 Cells/uL F 620.0-3660.0 Neutrophils [#/volume] in Blood by Automated count 2025-08-26 02:18:09 9871 Cells/uL F 2000.0-8800. 0 Monocytes [#/volume] in Blood by Automated count 2025-08-26 02:18:09 418 Cells/uL F 0.0-1100.0 Eosinophils [#/volume] in Blood by Automated count 2025-08-26 02:18:09 275 Cells/uL F 0.0-700.0 Basophils [#/volume] in Blood by Automated count 2025-08-26 02:18:09 60 Cells/uL F 0.0-400.0 Basophils/100 leukocytes in Blood by Automated count 2025-08-20 23:20:14 0.4 % F Neutrophils/100 leukocytes in Blood by Automated count 2025-08-20 23:20:14 69.3 % F Eosinophils/100 leukocytes in Blood by Automated count 2025-08-20 23:20:14 4.8 % F Monocytes/100 leukocytes in Blood by Automated count 2025-08-20 23:20:14 4.6 % F Leukocytes [#/volume] in Blood by Automated count 2025-08-20 23:20:14 10.8 x 10^3 cells/uL F 4.0-11.0 Lymphocytes/100 leukocytes in Blood by Automated count 2025-08-20 23:20:14 20.9 % F Lymphocytes [#/volume] in Blood by Automated count 2025-08-20 23:20:14 2253 Cells/uL F 620.0-3660.0 Monocytes [#/volume] in Blood by Automated count 2025-08-20 23:20:14 496 Cells/uL F 0.0-1100.0 Neutrophils [#/volume] in Blood by Automated count 2025-08-20 23:20:14 7471 Cells/uL F 2000.0-8800. 0 Eosinophils [#/volume] in Blood by Automated count 2025-08-20 23:20:14 517 Cells/uL F 0.0-700.0 Basophils [#/volume] in Blood by Automated count 2025-08-20 23:20:14 43 Cells/uL F 0.0-400.0 Basophils/100 leukocytes in Blood by Automated count 2025-08-20 23:20:14 0.4 % F Neutrophils/100 leukocytes in Blood by Automated count 2025-08-20 23:20:14 69.3 % F Lymphocytes/100 leukocytes in Blood by Automated count 2025-08-20 23:20:14 20.9 % F Monocytes/100 leukocytes in Blood by Automated count 2025-08-20 23:20:14 4.6 % F Leukocytes [#/volume] in Blood by Automated count 2025-08-20 23:20:14 10.8 x 10^3 cells/uL F 4.0-11.0 Eosinophils/100 leukocytes in Blood by Automated count 2025-08-20 23:20:14 4.8 % F Neutrophils [#/volume] in Blood by Automated count 2025-08-20 23:20:14 7471 Cells/uL F 2000.0-8800. 0 Lymphocytes [#/volume] in Blood by Automated count 2025-08-20 23:20:14 2253 Cells/uL F 620.0-3660.0 Monocytes [#/volume] in Blood by Automated count 2025-08-20 23:20:14 496 Cells/uL F 0.0-1100.0 Basophils [#/volume] in Blood by Automated count 2025-08-20 23:20:14 43 Cells/uL F 0.0-400.0 Eosinophils [#/volume] in Blood by Automated count 2025-08-20 23:20:14 517 Cells/uL F 0.0-700.0 Monocytes/100 leukocytes in Blood by Automated count 2025-08-13 15:05:16 3.8 % F Eosinophils/100 leukocytes in Blood by Automated count 2025-08-13 15:05:16 4.2 % F Leukocytes [#/volume] in Blood by Automated count 2025-08-13 15:05:16 15 x 10^3 cells/uL F 4.0-11.0 Monocytes/100 leukocytes in Blood by Automated count 2025-08-13 15:05:16 3.8 % F Leukocytes [#/volume] in Blood by Automated count 2025-08-13 15:05:16 15 x 10^3 cells/uL F 4.0-11.0 Eosinophils/100 leukocytes in Blood by Automated count 2025-08-13 15:05:16 4.2 % F Neutrophils/100 leukocytes in Blood by Automated count 2025-08-13 15:05:14 79.9 % F Basophils/100 leukocytes in Blood by Automated count 2025-08-13 15:05:14 0.1 % F Lymphocytes/100 leukocytes in Blood by Automated count 2025-08-13 15:05:14 12.1 % F Neutrophils [#/volume] in Blood by Automated count 2025-08-13 15:05:14 06138 Cells/uL F 2000.0-8800. 0 Monocytes [#/volume] in Blood by Automated count 2025-08-13 15:05:14 570 Cells/uL F 0.0-1100.0 Basophils [#/volume] in Blood by Automated count 2025-08-13 15:05:14 15 Cells/uL F 0.0-400.0 Lymphocytes [#/volume] in Blood by Automated count 2025-08-13 15:05:14 1814 Cells/uL F 620.0-3660.0 Eosinophils [#/volume] in Blood by Automated count 2025-08-13 15:05:14 630 Cells/uL F 0.0-700.0 Basophils/100 leukocytes in Blood by Automated count 2025-08-13 15:05:14 0.1 % F Neutrophils/100 leukocytes in Blood by Automated count 2025-08-13 15:05:14 79.9 % F Lymphocytes/100 leukocytes in Blood by Automated count 2025-08-13 15:05:14 12.1 % F Neutrophils [#/volume] in Blood by Automated count 2025-08-13 15:05:14 86394 Cells/uL F 2000.0-8800. 0 Lymphocytes [#/volume] in Blood by Automated count 2025-08-13 15:05:14 1814 Cells/uL F 620.0-3660.0 Monocytes [#/volume] in Blood by Automated count 2025-08-13 15:05:14 570 Cells/uL F 0.0-1100.0 Eosinophils [#/volume] in Blood by Automated count 2025-08-13 15:05:14 630 Cells/uL F 0.0-700.0 Basophils [#/volume] in Blood by Automated count 2025-08-13 15:05:14 15 Cells/uL F 0.0-400.0 Neutrophils/100 leukocytes in Blood by Automated count 2025-08-04 15:00:11 72 % F Lymphocytes/100 leukocytes in Blood by Automated count 2025-08-04 15:00:11 17.5 % F Monocytes/100 leukocytes in Blood by Automated count 2025-08-04 15:00:11 5.8 % F Eosinophils/100 leukocytes in Blood by Automated count 2025-08-04 15:00:11 4.2 % F Leukocytes [#/volume] in Blood by Automated count 2025-08-04 15:00:11 13.2 x 10^3 cells/uL F 4.0-11.0 Neutrophils [#/volume] in Blood by Automated count 2025-08-04 15:00:11 9497 Cells/uL F 2000.0-8800. 0 Lymphocytes [#/volume] in Blood by Automated count 2025-08-04 15:00:11 2308 Cells/uL F 620.0-3660.0 Monocytes [#/volume] in Blood by Automated count 2025-08-04 15:00:11 765 Cells/uL F 0.0-1100.0 Basophils [#/volume] in Blood by Automated count 2025-08-04 15:00:11 53 Cells/uL F 0.0-400.0 Eosinophils [#/volume] in Blood by Automated count 2025-08-04 15:00:11 554 Cells/uL F 0.0-700.0 Basophils/100 leukocytes in Blood by Automated count 2025-08-04 15:00:11 0.4 % F Basophils/100 leukocytes in Blood by Automated count 2025-07-28 16:41:08 0.4 % F Eosinophils/100 leukocytes in Blood by Automated count 2025-07-28 16:41:08 4.2 % F Neutrophils [#/volume] in Blood by Automated count 2025-07-28 16:41:08 7552 Cells/uL F 2000.0-8800. 0 Lymphocytes [#/volume] in Blood by Automated count 2025-07-28 16:41:08 1705 Cells/uL F 620.0-3660.0 Eosinophils [#/volume] in Blood by Automated count 2025-07-28 16:41:08 426 Cells/uL F 0.0-700.0 Monocytes/100 leukocytes in Blood by Automated count 2025-07-28 16:41:08 4.2 % F Leukocytes [#/volume] in Blood by Automated count 2025-07-28 16:41:08 10.2 x 10^3 cells/uL F 4.0-11.0 Lymphocytes/100 leukocytes in Blood by Automated count 2025-07-28 16:41:08 16.8 % F Neutrophils/100 leukocytes in Blood by Automated count 2025-07-28 16:41:08 74.4 % F Monocytes [#/volume] in Blood by Automated count 2025-07-28 16:41:08 426 Cells/uL F 0.0-1100.0 Basophils [#/volume] in Blood by Automated count 2025-07-28 16:41:08 41 Cells/uL F 0.0-400.0 Basophils/100 leukocytes in Blood by Automated count 2025-07-28 16:41:08 0.4 % F Eosinophils/100 leukocytes in Blood by Automated count 2025-07-28 16:41:08 4.2 % F Monocytes/100 leukocytes in Blood by Automated count 2025-07-28 16:41:08 4.2 % F Lymphocytes/100 leukocytes in Blood by Automated count 2025-07-28 16:41:08 16.8 % F Eosinophils [#/volume] in Blood by Automated count 2025-07-28 16:41:08 426 Cells/uL F 0.0-700.0 Basophils [#/volume] in Blood by Automated count 2025-07-28 16:41:08 41 Cells/uL F 0.0-400.0 Neutrophils/100 leukocytes in Blood by Automated count 2025-07-28 16:41:08 74.4 % F Monocytes [#/volume] in Blood by Automated count 2025-07-28 16:41:08 426 Cells/uL F 0.0-1100.0 Neutrophils [#/volume] in Blood by Automated count 2025-07-28 16:41:08 7552 Cells/uL F 2000.0-8800. 0 Leukocytes [#/volume] in Blood by Automated count 2025-07-28 16:41:08 10.2 x 10^3 cells/uL F 4.0-11.0 Lymphocytes [#/volume] in Blood by Automated count 2025-07-28 16:41:08 1705 Cells/uL F 620.0-3660.0 Basophils/100 leukocytes in Blood by Automated count 2025-07-28 16:41:08 0.4 % F Neutrophils/100 leukocytes in Blood by Automated count 2025-07-28 16:41:08 74.4 % F Lymphocytes/100 leukocytes in Blood by Automated count 2025-07-28 16:41:08 16.8 % F Monocytes/100 leukocytes in Blood by Automated count 2025-07-28 16:41:08 4.2 % F Eosinophils/100 leukocytes in Blood by Automated count 2025-07-28 16:41:08 4.2 % F Leukocytes [#/volume] in Blood by Automated count 2025-07-28 16:41:08 10.2 x 10^3 cells/uL F 4.0-11.0 Neutrophils [#/volume] in Blood by Automated count 2025-07-28 16:41:08 7552 Cells/uL F 2000.0-8800. 0 Lymphocytes [#/volume] in Blood by Automated count 2025-07-28 16:41:08 1705 Cells/uL F 620.0-3660.0 Monocytes [#/volume] in Blood by Automated count 2025-07-28 16:41:08 426 Cells/uL F 0.0-1100.0 Basophils [#/volume] in Blood by Automated count 2025-07-28 16:41:08 41 Cells/uL F 0.0-400.0 Eosinophils [#/volume] in Blood by Automated count 2025-07-28 16:41:08 426 Cells/uL F 0.0-700.0 Neutrophils/100 leukocytes in Blood by Automated count 2025-07-21 16:47:12 77.3 % F Lymphocytes/100 leukocytes in Blood by Automated count 2025-07-21 16:47:12 14.4 % F Basophils/100 leukocytes in Blood by Automated count 2025-07-21 16:47:12 0.9 % F Monocytes/100 leukocytes in Blood by Automated count 2025-07-21 16:47:12 4.2 % F Eosinophils/100 leukocytes in Blood by Automated count 2025-07-21 16:47:12 3.3 % F Leukocytes [#/volume] in Blood by Automated count 2025-07-21 16:47:12 12.8 x 10^3 cells/uL F 4.0-11.0 Monocytes [#/volume] in Blood by Automated count 2025-07-21 16:47:12 540 Cells/uL F 0.0-1100.0 Lymphocytes [#/volume] in Blood by Automated count 2025-07-21 16:47:12 1850 Cells/uL F 620.0-3660.0 Basophils [#/volume] in Blood by Automated count 2025-07-21 16:47:12 116 Cells/uL F 0.0-400.0 Neutrophils [#/volume] in Blood by Automated count 2025-07-21 16:47:12 9933 Cells/uL F 2000.0-8800. 0 Eosinophils [#/volume] in Blood by Automated count 2025-07-21 16:47:12 424 Cells/uL F 0.0-700.0 Basophils/100 leukocytes in Blood by Automated count 2025-07-21 16:47:12 0.9 % F Neutrophils/100 leukocytes in Blood by Automated count 2025-07-21 16:47:12 77.3 % F Eosinophils/100 leukocytes in Blood by Automated count 2025-07-21 16:47:12 3.3 % F Monocytes/100 leukocytes in Blood by Automated count 2025-07-21 16:47:12 4.2 % F Leukocytes [#/volume] in Blood by Automated count 2025-07-21 16:47:12 12.8 x 10^3 cells/uL F 4.0-11.0 Lymphocytes/100 leukocytes in Blood by Automated count 2025-07-21 16:47:12 14.4 % F Neutrophils [#/volume] in Blood by Automated count 2025-07-21 16:47:12 9933 Cells/uL F 2000.0-8800. 0 Lymphocytes [#/volume] in Blood by Automated count 2025-07-21 16:47:12 1850 Cells/uL F 620.0-3660.0 Monocytes [#/volume] in Blood by Automated count 2025-07-21 16:47:12 540 Cells/uL F 0.0-1100.0 Basophils [#/volume] in Blood by Automated count 2025-07-21 16:47:12 116 Cells/uL F 0.0-400.0 Eosinophils [#/volume] in Blood by Automated count 2025-07-21 16:47:12 424 Cells/uL F 0.0-700.0 Lymphocytes/100 leukocytes in Blood by Automated count 2025-07-21 16:47:12 14.4 % F Eosinophils/100 leukocytes in Blood by Automated count 2025-07-21 16:47:12 3.3 % F Neutrophils [#/volume] in Blood by Automated count 2025-07-21 16:47:12 9933 Cells/uL F 2000.0-8800. 0 Lymphocytes [#/volume] in Blood by Automated count 2025-07-21 16:47:12 1850 Cells/uL F 620.0-3660.0 Monocytes [#/volume] in Blood by Automated count 2025-07-21 16:47:12 540 Cells/uL F 0.0-1100.0 Basophils/100 leukocytes in Blood by Automated count 2025-07-21 16:47:12 0.9 % F Neutrophils/100 leukocytes in Blood by Automated count 2025-07-21 16:47:12 77.3 % F Leukocytes [#/volume] in Blood by Automated count 2025-07-21 16:47:12 12.8 x 10^3 cells/uL F 4.0-11.0 Monocytes/100 leukocytes in Blood by Automated count 2025-07-21 16:47:12 4.2 % F Basophils [#/volume] in Blood by Automated count 2025-07-21 16:47:12 116 Cells/uL F 0.0-400.0 Eosinophils [#/volume] in Blood by Automated count 2025-07-21 16:47:12 424 Cells/uL F 0.0-700.0 Basophils/100 leukocytes in Blood by Automated count 2025-07-16 21:42:13 0.9 % F Neutrophils/100 leukocytes in Blood by Automated count 2025-07-16 21:42:13 69.2 % F Monocytes/100 leukocytes in Blood by Automated count 2025-07-16 21:42:13 4.4 % F Lymphocytes/100 leukocytes in Blood by Automated count 2025-07-16 21:42:13 21.1 % F Eosinophils/100 leukocytes in Blood by Automated count 2025-07-16 21:42:13 4.4 % F Leukocytes [#/volume] in Blood by Automated count 2025-07-16 21:42:13 11 x 10^3 cells/uL F 4.0-11.0 Neutrophils [#/volume] in Blood by Automated count 2025-07-16 21:42:13 7598 Cells/uL F 2000.0-8800. 0 Lymphocytes [#/volume] in Blood by Automated count 2025-07-16 21:42:13 2317 Cells/uL F 620.0-3660.0 Monocytes [#/volume] in Blood by Automated count 2025-07-16 21:42:13 483 Cells/uL F 0.0-1100.0 Basophils [#/volume] in Blood by Automated count 2025-07-16 21:42:13 99 Cells/uL F 0.0-400.0 Eosinophils [#/volume] in Blood by Automated count 2025-07-16 21:42:13 483 Cells/uL F 0.0-700.0 Neutrophils/100 leukocytes in Blood by Automated count 2025-07-09 21:41:11 71.2 % F Lymphocytes/100 leukocytes in Blood by Automated count 2025-07-09 21:41:11 19.1 % F Basophils/100 leukocytes in Blood by Automated count 2025-07-09 21:41:11 0.5 % F Eosinophils/100 leukocytes in Blood by Automated count 2025-07-09 21:41:11 3.8 % F Monocytes/100 leukocytes in Blood by Automated count 2025-07-09 21:41:11 5.3 % F Leukocytes [#/volume] in Blood by Automated count 2025-07-09 21:41:11 14.5 x 10^3 cells/uL F 4.0-11.0 Neutrophils [#/volume] in Blood by Automated count 2025-07-09 21:41:11 89720 Cells/uL F 2000.0-8800. 0 Monocytes [#/volume] in Blood by Automated count 2025-07-09 21:41:11 768 Cells/uL F 0.0-1100.0 Eosinophils [#/volume] in Blood by Automated count 2025-07-09 21:41:11 551 Cells/uL F 0.0-700.0 Lymphocytes [#/volume] in Blood by Automated count 2025-07-09 21:41:11 2770 Cells/uL F 620.0-3660.0 Basophils [#/volume] in Blood by Automated count 2025-07-09 21:41:11 72 Cells/uL F 0.0-400.0 Basophils/100 leukocytes in Blood by Automated count 2025-06-30 13:25:16 0.3 % F Lymphocytes/100 leukocytes in Blood by Automated count 2025-06-30 13:25:16 19.3 % F Monocytes/100 leukocytes in Blood by Automated count 2025-06-30 13:25:16 4.8 % F Eosinophils/100 leukocytes in Blood by Automated count 2025-06-30 13:25:16 4.8 % F Leukocytes [#/volume] in Blood by Automated count 2025-06-30 13:25:16 12.7 x 10^3 cells/uL F 4.0-11.0 Lymphocytes [#/volume] in Blood by Automated count 2025-06-30 13:25:16 2447 Cells/uL F 620.0-3660.0 Monocytes [#/volume] in Blood by Automated count 2025-06-30 13:25:16 609 Cells/uL F 0.0-1100.0 Basophils [#/volume] in Blood by Automated count 2025-06-30 13:25:16 38 Cells/uL F 0.0-400.0 Neutrophils [#/volume] in Blood by Automated count 2025-06-30 13:25:16 8977 Cells/uL F 2000.0-8800. 0 Eosinophils [#/volume] in Blood by Automated count 2025-06-30 13:25:16 609 Cells/uL F 0.0-700.0 Neutrophils/100 leukocytes in Blood by Automated count 2025-06-30 13:25:16 70.8 % F MineralBone Disorder Description Draw Date Result/Unit Status Ref Range Result Comments CA CORRECTED 2025-10-20 18:34:34 8.1 mg/dL F CA/PHOS PRODUCT 2025-10-20 18:32:10 74.7 Calc F 21.0-53.0 CA*PO4 CORRCTD 2025-10-20 18:32:10 78.6 Calc F 21.0-53.0 Calcium [Mass/volume] in Serum or Plasma 2025-10-20 18:31:23 7.7 mg/dL F 8.7-10.4 Parathyrin.intact [Mass/volume] in Serum or Plasma 2025-10-20 17:22:17 1037 pg/mL F 18.0-80.0 Alkaline phosphatase [Enzymatic activity/volume] in Serum or Plasma 2025-10-20 16:23:13 112 U/L F 46.0-116.0 Phosphate [Mass/volume] in Serum or Plasma 2025-10-20 16:23:13 9.7 mg/dL F 2.4-5.1 CA CORRECTED 2025-10-14 04:56:10 8.6 mg/dL F CA CORRECTED 2025-10-14 04:56:10 8.6 mg/dL F CA*PO4 CORRCTD 2025-10-14 04:51:46 74.3 Calc F 21.0-53.0 CA/PHOS PRODUCT 2025-10-14 04:51:46 72.2 Calc F 21.0-53.0 CA/PHOS PRODUCT 2025-10-14 04:51:46 72.2 Calc F 21.0-53.0 CA*PO4 CORRCTD 2025-10-14 04:51:46 74.3 Calc F 21.0-53.0 Calcium [Mass/volume] in Serum or Plasma 2025-10-14 04:29:49 8.4 mg/dL F 8.7-10.4 Calcium [Mass/volume] in Serum or Plasma 2025-10-14 04:29:49 8.4 mg/dL F 8.7-10.4 Phosphate [Mass/volume] in Serum or Plasma 2025-10-14 01:05:27 8.6 mg/dL F 2.4-5.1 Phosphate [Mass/volume] in Serum or Plasma 2025-10-14 01:05:27 8.6 mg/dL F 2.4-5.1 Parathyrin.intact [Mass/volume] in Serum or Plasma 2025-10-13 20:15:22 596 pg/mL F 18.0-80.0 Parathyrin.intact [Mass/volume] in Serum or Plasma 2025-10-13 20:15:22 596 pg/mL F 18.0-80.0 CA/PHOS PRODUCT 2025-10-12 08:46:58 F RECOLLECT - OUTD ATED SPECIMEN,Unable to Calculate. CA*PO4 CORRCTD 2025-10-12 08:46:58 F Unable to Calculate.,RECOLLECT - OUTDATED SPECIMEN Calcium [Mass/volume] in Serum or Plasma 2025-10-12 08:45:43 F RECOLLECT - OUTD ATED SPECIMEN Parathyrin.intact [Mass/volume] in Serum or Plasma 2025-10-11 20:47:04 F RECOLLECT - OUTD ATED SPECIMEN,This test utilizes Biotin (Vitamin B7) as one of its reagents. Testing may be interfered with in patients consuming Biotin supplements. Please factor this when reviewing results. Assay methodology: Siemens Chemiluminescence. Phosphate [Mass/volume] in Serum or Plasma 2025-10-11 20:38:58 F RECOLLECT - OUTD ATED SPECIMEN 25-Hydroxyvitamin D3+25-Hydroxyvitamin D2 [Mass/volume] in Serum or Plasma 2025-09-23 07:58:01 28.3 ng/mL F 30.0-100.0 Alkaline phosphatase [Enzymatic activity/volume] in Serum or Plasma 2025-09-22 18:20:21 157 U/L F 46.0-116.0 CA CORRECTED 2025-09-09 04:39:30 8.1 mg/dL F CA CORRECTED 2025-09-09 04:39:30 8.1 mg/dL F CA/PHOS PRODUCT 2025-09-09 04:37:29 55.3 Calc F 21.0-53.0 CA*PO4 CORRCTD 2025-09-09 04:37:29 56.4 Calc F 21.0-53.0 CA/PHOS PRODUCT 2025-09-09 04:37:29 55.3 Calc F 21.0-53.0 CA*PO4 CORRCTD 2025-09-09 04:37:29 56.4 Calc F 21.0-53.0 Calcium [Mass/volume] in Serum or Plasma 2025-09-09 04:32:11 7.9 mg/dL F 8.7-10.4 Calcium [Mass/volume] in Serum or Plasma 2025-09-09 04:32:11 7.9 mg/dL F 8.7-10.4 Parathyrin.intact [Mass/volume] in Serum or Plasma 2025-09-09 00:18:20 593 pg/mL F 18.0-80.0 Parathyrin.intact [Mass/volume] in Serum or Plasma 2025-09-09 00:18:20 593 pg/mL F 18.0-80.0 Phosphate [Mass/volume] in Serum or Plasma 2025-09-08 23:39:17 7 mg/dL F 2.4-5.1 Phosphate [Mass/volume] in Serum or Plasma 2025-09-08 23:39:17 7 mg/dL F 2.4-5.1 Alkaline phosphatase [Enzymatic activity/volume] in Serum or Plasma 2025-08-25 13:19:17 152 U/L F 46.0-116.0 Alkaline phosphatase [Enzymatic activity/volume] in Serum or Plasma 2025-08-25 13:19:17 152 U/L F 46.0-116.0 CA CORRECTED 2025-08-13 16:21:04 8 mg/dL F CA CORRECTED 2025-08-13 16:21:04 8 mg/dL F CA/PHOS PRODUCT 2025-08-13 16:20:00 56.2 Calc F 21.0-53.0 CA*PO4 CORRCTD 2025-08-13 16:20:00 58.5 Calc F 21.0-53.0 CA/PHOS PRODUCT 2025-08-13 16:20:00 56.2 Calc F 21.0-53.0 CA*PO4 CORRCTD 2025-08-13 16:20:00 58.5 Calc F 21.0-53.0 Calcium [Mass/volume] in Serum or Plasma 2025-08-13 16:19:15 7.7 mg/dL F 8.7-10.4 Calcium [Mass/volume] in Serum or Plasma 2025-08-13 16:19:15 7.7 mg/dL F 8.7-10.4 Parathyrin.intact [Mass/volume] in Serum or Plasma 2025-08-13 15:12:17 524 pg/mL F 18.0-80.0 Parathyrin.intact [Mass/volume] in Serum or Plasma 2025-08-13 15:12:17 524 pg/mL F 18.0-80.0 Phosphate [Mass/volume] in Serum or Plasma 2025-08-13 14:43:17 7.3 mg/dL F 2.4-5.1 Phosphate [Mass/volume] in Serum or Plasma 2025-08-13 14:43:17 7.3 mg/dL F 2.4-5.1 Alkaline phosphatase [Enzymatic activity/volume] in Serum or Plasma 2025-07-21 16:01:13 194 U/L F 46.0-116.0 Alkaline phosphatase [Enzymatic activity/volume] in Serum or Plasma 2025-07-21 16:01:13 194 U/L F 46.0-116.0 Alkaline phosphatase [Enzymatic activity/volume] in Serum or Plasma 2025-07-21 16:01:13 194 U/L F 46.0-116.0 CA CORRECTED 2025-07-10 07:58:07 8.3 mg/dL F CA/PHOS PRODUCT 2025-07-10 07:19:53 49.3 Calc F 21.0-53.0 CA*PO4 CORRCTD 2025-07-10 07:19:53 53.4 Calc F 21.0-53.0 Calcium [Mass/volume] in Serum or Plasma 2025-07-10 07:06:12 7.7 mg/dL F 8.7-10.4 Phosphate [Mass/volume] in Serum or Plasma 2025-07-10 04:27:16 6.4 mg/dL F 2.4-5.1 Parathyrin.intact [Mass/volume] in Serum or Plasma 2025-07-10 00:22:18 547 pg/mL F 18.0-80.0 CA CORRECTED F Nutrition Description Draw Date Result/Unit Status Ref Range Result Comments Potassium [Moles/volume] in Serum or Plasma 2025-10-20 18:31:16 6.2 mEq/L F 3.5-5.1 GLOBULIN 2025-10-20 16:24:07 3 g/dL F 0.9-5.0 A/G RATIO 2025-10-20 16:24:07 1.2 Calc F 1.0-2.5 Albumin [Mass/volume] in Serum or Plasma by Bromocresol green (BCG) dye binding method 2025-10-20 16:23:13 3.5 g/dL F 3.2-4.8 Glucose [Mass/volume] in Serum or Plasma 2025-10-20 16:23:13 194 mg/dL F 74.0-106.0 Bicarbonate [Moles/volume] in Serum or Plasma 2025-10-20 16:23:13 16 mEq/L F 20.0-31.0 Lactate dehydrogenase [Enzymatic activity/volume] in Serum or Plasma 2025-10-20 16:23:13 229 U/L F 120.0-246.0 Protein [Mass/volume] in Serum or Plasma 2025-10-20 16:23:13 6.5 g/dL F 5.7-8.2 Potassium [Moles/volume] in Serum or Plasma 2025-09-23 01:44:27 6.5 mEq/L F 3.5-5.1 A/G RATIO 2025-09-22 18:21:22 1.1 Calc F 1.0-2.5 GLOBULIN 2025-09-22 18:21:22 3.3 g/dL F 0.9-5.0 Albumin [Mass/volume] in Serum or Plasma by Bromocresol green (BCG) dye binding method 2025-09-22 18:20:21 3.7 g/dL F 3.2-4.8 Bicarbonate [Moles/volume] in Serum or Plasma 2025-09-22 18:20:21 19 mEq/L F 20.0-31.0 Glucose [Mass/volume] in Serum or Plasma 2025-09-22 18:20:21 127 mg/dL F 74.0-106.0 Lactate dehydrogenase [Enzymatic activity/volume] in Serum or Plasma 2025-09-22 18:20:21 315 U/L F 120.0-246.0 Protein [Mass/volume] in Serum or Plasma 2025-09-22 18:20:21 7 g/dL F 5.7-8.2 Potassium [Moles/volume] in Serum or Plasma 2025-08-25 17:22:05 5.6 mEq/L F 3.5-5.1 Potassium [Moles/volume] in Serum or Plasma 2025-08-25 17:22:05 5.6 mEq/L F 3.5-5.1 A/G RATIO 2025-08-25 13:20:02 1 Calc F 1.0-2.5 GLOBULIN 2025-08-25 13:20:02 3.7 g/dL F 0.9-5.0 A/G RATIO 2025-08-25 13:20:02 1 Calc F 1.0-2.5 GLOBULIN 2025-08-25 13:20:02 3.7 g/dL F 0.9-5.0 Albumin [Mass/volume] in Serum or Plasma by Bromocresol green (BCG) dye binding method 2025-08-25 13:19:17 3.8 g/dL F 3.2-4.8 Bicarbonate [Moles/volume] in Serum or Plasma 2025-08-25 13:19:17 15 mEq/L F 20.0-31.0 Glucose [Mass/volume] in Serum or Plasma 2025-08-25 13:19:17 82 mg/dL F 74.0-106.0 Lactate dehydrogenase [Enzymatic activity/volume] in Serum or Plasma 2025-08-25 13:19:17 297 U/L F 120.0-246.0 Protein [Mass/volume] in Serum or Plasma 2025-08-25 13:19:17 7.5 g/dL F 5.7-8.2 Albumin [Mass/volume] in Serum or Plasma by Bromocresol green (BCG) dye binding method 2025-08-25 13:19:17 3.8 g/dL F 3.2-4.8 Bicarbonate [Moles/volume] in Serum or Plasma 2025-08-25 13:19:17 15 mEq/L F 20.0-31.0 Lactate dehydrogenase [Enzymatic activity/volume] in Serum or Plasma 2025-08-25 13:19:17 297 U/L F 120.0-246.0 Glucose [Mass/volume] in Serum or Plasma 2025-08-25 13:19:17 82 mg/dL F 74.0-106.0 Protein [Mass/volume] in Serum or Plasma 2025-08-25 13:19:17 7.5 g/dL F 5.7-8.2 Potassium [Moles/volume] in Serum or Plasma 2025-07-22 05:50:15 5.3 mEq/L F 3.5-5.1 Potassium [Moles/volume] in Serum or Plasma 2025-07-22 05:50:15 5.3 mEq/L F 3.5-5.1 Potassium [Moles/volume] in Serum or Plasma 2025-07-22 05:50:15 5.3 mEq/L F 3.5-5.1 A/G RATIO 2025-07-21 16:02:07 1.1 Calc F 1.0-2.5 GLOBULIN 2025-07-21 16:02:07 3.3 g/dL F 0.9-5.0 A/G RATIO 2025-07-21 16:02:07 1.1 Calc F 1.0-2.5 GLOBULIN 2025-07-21 16:02:07 3.3 g/dL F 0.9-5.0 GLOBULIN 2025-07-21 16:02:07 3.3 g/dL F 0.9-5.0 A/G RATIO 2025-07-21 16:02:07 1.1 Calc F 1.0-2.5 Bicarbonate [Moles/volume] in Serum or Plasma 2025-07-21 16:01:13 16 mEq/L F 20.0-31.0 Glucose [Mass/volume] in Serum or Plasma 2025-07-21 16:01:13 473 mg/dL F 74.0-106.0 Albumin [Mass/volume] in Serum or Plasma by Bromocresol green (BCG) dye binding method 2025-07-21 16:01:13 3.6 g/dL F 3.2-4.8 Lactate dehydrogenase [Enzymatic activity/volume] in Serum or Plasma 2025-07-21 16:01:13 217 U/L F 120.0-246.0 Protein [Mass/volume] in Serum or Plasma 2025-07-21 16:01:13 6.9 g/dL F 5.7-8.2 Albumin [Mass/volume] in Serum or Plasma by Bromocresol green (BCG) dye binding method 2025-07-21 16:01:13 3.6 g/dL F 3.2-4.8 Bicarbonate [Moles/volume] in Serum or Plasma 2025-07-21 16:01:13 16 mEq/L F 20.0-31.0 Glucose [Mass/volume] in Serum or Plasma 2025-07-21 16:01:13 473 mg/dL F 74.0-106.0 Lactate dehydrogenase [Enzymatic activity/volume] in Serum or Plasma 2025-07-21 16:01:13 217 U/L F 120.0-246.0 Protein [Mass/volume] in Serum or Plasma 2025-07-21 16:01:13 6.9 g/dL F 5.7-8.2 Bicarbonate [Moles/volume] in Serum or Plasma 2025-07-21 16:01:13 16 mEq/L F 20.0-31.0 Protein [Mass/volume] in Serum or Plasma 2025-07-21 16:01:13 6.9 g/dL F 5.7-8.2 Albumin [Mass/volume] in Serum or Plasma by Bromocresol green (BCG) dye binding method 2025-07-21 16:01:13 3.6 g/dL F 3.2-4.8 Glucose [Mass/volume] in Serum or Plasma 2025-07-21 16:01:13 473 mg/dL F 74.0-106.0 Lactate dehydrogenase [Enzymatic activity/volume] in Serum or Plasma 2025-07-21 16:01:13 217 U/L F 120.0-246.0 Encounters No encounter information to report Immunizations Ordered Immunization Name Filled Immunization Name Date Status Comments Refusal Reason Hep B, adult 2025-10-19 14:53:55 TST-PPD intradermal 2025-08-05 12:48:20 Pneumococcal conjugate PCV20, polysaccharide [id number] conjugate, adjuvant, PF 2025-08-05 12:45:13 TST-PPD intradermal 2024-06-24 19:15:00 TST-PPD intradermal 2023-08-28 19:25:10 Plan of Treatment Planned Activity Provider Planned Date Details Commen ts Diagnostic Test Pending [facility] 2025-10-14 07:45:59 Hemoglobin [Mass/volume] in Blood [code = 718-7] Diagnostic Test Pending [facility] 2025-10-22 07:47:13 Reticulocytes/100 erythrocytes in Blood by Automated count [code = 86533-8] Diagnostic Test Pending [facility] 2025-10-22 07:47:[address] [code = 2265] Diagnostic Test Pending [facility] 2024-11-23 07:31:41 Hemoglobin [Mass/volume] in Blood [code = 718-7] Diagnostic Test Pending [facility] 2024-03-09 13:54:40 Glucose [Mass/volume] in Serum or Plasma [code = 2345-7] Diagnostic Test Pending [facility] 2024-03-09 13:55:49 Albumin [Mass/volume] in Serum or Plasma by Bromocresol green (BCG) dye binding method [code = 36269-9] Diagnostic Test Pending [facility] 2024-05-03 05:00:00 Alanine aminotransferase [Enzymatic activity/volume] in Serum or Plasma [code = 1742-6] Diagnostic Test Pending [facility] 2024-03-09 13:58:31 Creatinine [Mass/volume] in Serum or Plasma [code = 2160-0] Diagnostic Test Pending [facility] 2024-03-09 13:51:17 25-Hydroxyvitamin D3+25-Hydroxyvitamin D2 [Mass/volume] in Serum or Plasma [code = 93406-2] Diagnostic Test Pending [facility] 2024-03-09 13:51:00 Aluminum [Mass/volume] in Serum or Plasma [code = 5574-9] Diagnostic Test Pending [facility] 2024-03-09 13:53:19 Sodium [Moles/volume] in Serum or Plasma [code = 2951-2] Diagnostic Test Pending [facility] 2024-03-10 06:36:05 Parathyrin.intact [Mass/volume] in Serum or Plasma [code = 2731-8] Diagnostic Test Pending [facility] 2025-10-25 14:19:50 In-Center Hemodialysis Treatment [code = GAK883] Diagnostic Test Pending [facility] 2025-10-10 21:28:28 In-Center Hemodialysis Treatment [code = IXE025] Diagnostic Test Pending [facility] 2025-09-22 06:00:00 In-Center Hemodialysis Treatment [code = IEP028] Diet Order [facility] September 09, 2023 Diet Calorie 30 kcal/kg Fluid Value 1000 mL/d Phosphorus Value 850 mg/d Potassium Value 2000 mg/d Protein Value 1.3 gm/kg Sodium Value 2000 mg/d Calculated Weight 63 kg dietary_diet_modification Carb Controlle d;
--- OUTSIDE RECORDS SUMMARY | 2025-10-28 10:46 | XMS_ITS | Clinical Summary ---
Author Organization [facility] [employer] Address [address] [place] [address] Care Team Providers Care Agricultural Lender Name Role Phone Cherise Patrick PA-C Primary Care Provider [phone] Source Comments [facility] [employer],non-owned Affiliates and Associated Physician Practices is amultiple site organization consisting of ambulatory clinics and hospital sitesin [place], [place] and [place]. This disclosure is being madepursuant to the Care Everywhere program and may not contain all information available regarding this patient. 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 Gender Identity Not on file Sexual Orientation [...] SMEAR 2013 DIABETES-FOOT EXAM WITH MONOFILAMENT 12/03/2022 DEPRESSION SCREENING 11/03/2024 06/10/2023, 06/10/2023, 04/24/2023 DIABETES-HGB A1C 02/26/2025 08/28/2024, , 02/23/2024, Additional history exists COVID-19 VACCINE (1 - season) 2025 INFLUENZA VACCINE (#1) 2025 DIABETES RETINOPATHY SCREENING 02/24/2027 02/24/2025, 11/01/2024 DTAP/TDAP/TD VACCINES (7 - Td [...] this topic Medical Devices Implanted Type Area Food Service Device Identifier Shelf Expiration Date Model / Serial / Lot Kit Durathane Drflw Embosafe Chrnc Dlys Implanted:Qty: 1 on 02/25/2024 by rAtie Harmon MD at [facility] Right: Chest [employer] 07/03/2026 [id number] / / [id number] Description:IMPLANTED BY DR. MARTINEZ Kit Durathane Drflw Embosafe Chrnc Dlys Implanted:Qty: 1 on 08/06/2024 by Artie Harmon MD at [facility] Left: Chest Wall [employer] 07/03/2026 [id number] / / [id number] Description:Implanted in the left chest wall, via the [facility], by Dr. Candy Harmon. Kit Durathane Drflw Embosafe Chrnc Dlys Implanted:Qty: 1 on 03/18/2025 by Rio Monk MD at [facility] [employer] 12/03/2026 [id number] / / [id number] Procedures Procedure Name Priority Date/Time Associated Diagnosis Comments HEMOGLOBIN A1C Routine 08/28/2024 8:29 PM CDT HEPATITIS C AB SCREEN RFLX NAAT QUANT Routine 05/31/2024 6:38 PM CDT HIV-1 HIV-2 ANTIBODY + HIV P24 AG PANEL STAT 02/24/2024 8:57 AM CDT from Last 3 Months or Most Recently Relevant to Health Maintenance Results * (ABNORMAL) HEMOGLOBIN A1C (08/28/2024 8:29 PM CDT) Hemoglobin A1c 7.4(H) <=5.6 % 08/29/2024 8:36 AM CDT [facility] Estimated Average Glucose 166 mg/dL 08/29/2024 8:36 AM CDT [facility] Comment: HbA1c Interpretation: Normal : < 5.7% Pre-diabetes: 5.7-6.4% Diabetes: Equal to or greater than 6.5% Test results diagnostic of diabetes should be repeated for confirmation. Treatment target values recommended by ADA and other clinical organizations should be used to evaluate metabolic control in patients. Reference: [place] Diabetes Association, Standards of Care in [...] ORDERABLES Fin al Result Performing Organization Address City/[facility]/ZIP Co de Phone Number [address] [address], [facility] [phone] * HEPATITIS C AB SCREEN RFLX NAAT QUANT (05/31/2024 6:38 PM CDT) Pathologist [facility] Hepatitis C Antibody Non-react talia Non-reac tive 05/31/2024 7:33 PM CDT [facility] Comment:Hepatitis C Antibody screen indicates no [...] ORDERAB LES Final Result Performing Organization Address [facility]/ZIP Co de Phone Number [address] [address], [place] [phone] * HIV-1 HIV-2 ANTIBODY + HIV P24 AG PANEL (02/24/2024 8:57 AM CDT) HIV Antigen/Antibod y 1 & 2 Non-reacti ve Non-react talia 02/24/2024 10:03 AM CDT [facility] Comment:No Laboratory eviden ce of HIV infection. 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
--- OUTSIDE RECORDS SUMMARY | 2025-10-28 10:46 | XMS_ITS | Patient Health Record ---
Author Organization [facility] Address [address] [place] [address] Phone [phone] Care Team Providers Care It Senior Analyst Name Role Phone Yessi Shannon Primary Care Provider [phone] Reason For Referral No Information Social History Sex Observation Social History Observation Description Sex Observation Female Sexual Orientation Social History Observation Description Sexual Orientation Straight or heterose xual Encounters Date Time Type Facility Location Provider Diagnosis 01/26/2025 01:50 PM Telephone Encounter [address] [facility] [place] [address] Yessi Shannon Plan Of Treatment No Information Insurance Providers Payer Name Payer Address Payer Phone Subscriber Number Group Number Insured Name Patient Relationship to Insured Coverage Start Date Coverage End Date [employer] [address] [place] [address] [id number] Gay Canales Self - patient is the insured 5 [employer] [address] [place] [address] [id number] CanalesGay Self - patient is the insured 5
--- OUTSIDE RECORDS SUMMARY | 2025-10-28 10:46 | XMS_ITS | Encounter Summary ---
Author Organization [facility] Address [address] [place] [address] Care Team Providers Care Staple Side Laster Name Role Phone None, Provider Primary Care Provider Anniea ble Encounter Details Date Type Department Care Team (Late st Contact Info) Description 01/22/2023 Telephone [facility] Physical Therapy [address] [place] [address] Penny Gould, PT [address] [place] [address] Social History Tobacco Use Types Packs/Day Years [...] documented as of this encounter Care Teams Staple Side Laster Relationship Specialty Start Date End Date None, Provider, PCP - General 07/29/22 documented as of this encounter
--- NOTE | 2025-10-28 10:58 | ECG_ITS ---
Test Date: 2025-10-28 11:04:19 Measurements Intervals [place] Rate: 90 P: 28 LA: 181 QRS: -27 QRSD: 93 T: -4 QT: 378 QTc: 464 Interpretive Statements SINUS RHYTHM POSSIBLE LEFT ATRIAL ENLARGEMENT BORDERLINE R WAVE PROGRESSION, ANTERIOR LEADS MINIMAL Q WAVES- HIGH LATERAL LEADS BORDERLINE ST-T WAVE ABNORMALITY- ANT/INF LEADS BASELINE ARTIFACT- III, AVL, AVF BORDERLINE ECG Compared to ECG 07/02/2025 06:08:19 No significant changes Electronically Signed On 10-28-2025 19:34:51 RAIL SWITCHMAN by Azar Cook D.O.
[2025-10-28 11:33] LABS: Hematocrit 40.8 % (37.0-47.0); Hemoglobin 12.3 g/dL (12.0-15.0); Immature Granulocyte Percent A 0.8 % (0-0.5); Lymphocytes Absolute Auto 2.39 K/mm3 (0.9-3.2); Mean Corpuscular HGB Conc 30.1 g/dl (32-36); Mean Corpuscular Hemoglobin 29.9 pg (26-34); Mean Corpuscular Volume 99.3 fl (80-100); Nucleated Red Blood Cells Absolute Auto 0.020 K/mm3 (0.0-0.012); Nucleated Red Blood Cells Perc 0.1 % (0.0-0.2); Platelet Count Result 401 k/mm3 (150-375); Red Blood Count 4.11 M/mm3 (4.2-5.4); White Blood Count 14.4 K/mm3 (4.5-10.0)
[2025-10-28 11:44] LABS: INR 1.1; Prothrombin Time 13.9 Seconds (11.1-14.7)
[2025-10-28 11:45] LABS: Partial Thromboplastin Time 50.2 Seconds (22.3-36.8)
[2025-10-28 11:47] LABS: Alanine Aminotransferase 14 U/L (6-35); Albumin Level 4.1 g/dL (3.5-5.1); Alkaline Phosphatase 127 U/L (38-126); Anion Gap 12 mmol/L (4-12); Aspartate Amino Transferase 17 U/L (14-36); Bilirubin,Total 0.3 mg/dL (0.2-1.3); Blood Urea Nitrogen 38 mg/dL (7-17); Calcium 8.7 mg/dL (8.4-10.2); Carbon Dioxide 16 mmol/L (22-30); Chloride 108 mmol/L (98-107); Estimated CRCL calculation 16 ml/min; Estimated Glomerular Filt Rate 8; Glucose 186 mg/dL (65-110); Lipase 137 U/L (23-300); Potassium 4.4 mmol/L (3.4-5.0); Sodium 136 mmol/L (137-145); Total Protein 8.5 g/dL (6.3-8.2)
[2025-10-28 11:58] LABS: Troponin I < 0.012 ng/mL (0.000-0.034)
--- OUTSIDE RECORDS SUMMARY | 2025-10-28 12:40 | XMS_ITS | Encounter Summary ---
Author Organization [facility] Address [address] [place] [address] Care Team Providers Care Hospice Clinical Supervisor Name Role Phone Cherise Patrick PA-C Primary Care Provider Reason for Visit * Reason Onset Date Comments Hospital Admission 04/24/2023 Encounter Details Date Type Department Care Team (Late st Contact Info) Description 04/24/[address] [facility] STANDARD [address] [place] [address] Sameer Navarro MD [facility] [address] Hospital Admission Social History Tobacco [...] and heating? Not hard at all 04/28/2023 [facility] of Occupat ional Health - Occupational Stress [...] [place] [facility] [place] ([facility] [place])? 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 Patient needs on arrival to [facility]: Medicine admissions resident (ask mail handler equipment operator for Medicine Admission) to be notified of arrival. Consultation to (N/A if blank): Vascular/general surgery I have accepted this patient for transfer to [facility]. If patient awaiting bed for >24hours, an [...] documented as of this encounter Care Teams Hospice Clinical Supervisor Relationship Specialty Start Date End Date Cherise Patrick PA-C [address] [place] [phone] PCP - General 02/23/24 documented as of this encounter
--- OUTSIDE RECORDS SUMMARY | 2025-10-28 12:41 | XMS_ITS | Encounter Summary ---
Author Organization [facility] Address [address] [place] [address] Care Team Providers Care Automatic Cigar Wrapper Tender Name Role Phone None, Provider Primary Care Provider Anniea ble Encounter Details Date Type Department Care Team (Late st Contact Info) Description 01/22/2023 Telephone [facility] Physical Therapy [address] [place] [address] Penny Gould, PT [address] [place] [address] Social History Tobacco Use Types Packs/Day Years [...] documented as of this encounter Care Teams Automatic Cigar Wrapper Tender Relationship Specialty Start Date End Date None, Provider, PCP - General 07/29/22 documented as of this encounter
--- OUTSIDE RECORDS SUMMARY | 2025-10-28 12:41 | XMS_ITS | Clinical Summary ---
Author Organization [facility] Address [address] [place] [address] Care Team Providers Care Enamel Drier Name Role Phone Cherise Patrick Primary Care Provider [phone] Allergies No known active allergies Medications furosemide (LASIX) 40 mg tabletIndicati ons:hypertensi on Take 1 tablet (40 mg total) by mouth auto battery builder before breakfast Active carvediloL (COREG) 12.5 mg tabletIndicati ons:hypertensi on Take 1 tablet (12.5 mg total) by mouth 2 (two) times a day with meals Active amLODIPine (NORVASC) 10 mg tabletIndicati ons:hypertensi on Take 1 tablet (10 mg total) by mouth auto battery builder before breakfast Active dulaglutide (TRULICITY) 0.75 mg/0.5 [...] 1 tablet (20 mg total) by mouth auto battery builder before breakfast Active gabapentin (NEURONTIN) 300 mg [...] eye. 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 Never 04/16/2023 Do you belong to any clubs o r organizations such as zoroastrianism groups, unions, fraternal or athletic groups, or [...] on file Legal Sex Female 8:53 PM RECYCLING OR RUBBISH COLLECTOR Gender Identity Female 12/23/2024 9:35 AM RECYCLING OR RUBBISH COLLECTOR Sexual Orientation Straight 12/23/2024 9: 35 AM RECYCLING OR RUBBISH COLLECTOR Last Filed Vital Signs Vital Sign Reading [...] 170.2 cm (5' 7) 12/23/2024 9:15 AM RECYCLING OR RUBBISH COLLECTOR Body Mass Index 38.84 12/23/2024 9:15 AM RECYCLING OR RUBBISH COLLECTOR Plan of Treatment Health Maintenance Due Date [...] 04/25/2008, 08/13/2007 Medical Devices Implanted Type Area Ct Scan Technologist Device Identifier Shelf Expiration Date Model / Serial / Lot [employer] Lens Iol [id number] [employer] [id number] - [id number] - [id number] Implanted:Qty: 1 on 01/10/2025 by Bita Vega MD at [facility] Lens Right: Eye [employer] 06/14/2026 [id number] / [id number] Procedures Procedure Name Priority Date/Time Associated Diagnosis Comments EGFR Routine 09/23/2023 5:39 PM RECYCLING OR RUBBISH COLLECTOR ALBUMIN CREATININE RATIO, URINE Routine 04/17/2023 4:23 PM CDT LIPID PANEL Routine 04/17/2023 1:03 PM CDT HEMOGLOBIN A1C Routine 04/16/2023 7:06 AM CDT from Last 3 Months or Most Recently Relevant to Health Maintenance Results * eGFR (09/23/2023 5:39 PM RECYCLING OR RUBBISH COLLECTOR) eGFR 22 mL/min/1. 73 m2 [facility] [...] last reviewed 2021. Blood 09/23/2023 5:39 PM RECYCLING OR RUBBISH COLLECTOR 09/23/2023 8:31 PM RECYCLING OR RUBBISH COLLECTOR us Tyrel iSmmons MD LAB BLOOD ORDERABLES Final Result [facility] [address] Department [place] [address] * (ABNORMAL) Albumin Creatinine Ratio, [...] MD LAB URINE ORDERABLES Final Re sult [facility] [address] [facility] Department [place] [address] * (ABNORMAL) Lipid panel (04/17/2023 1:03 PM [...] on 2018. HDL 38(L) >=40 mg/dL [facility] Comment: Interpretive Data Ages < or = [...] ORDERABLES Final Re sult Performing Organization Address [facility] Co de Phone Number [facility] [address] [facility] [place] [address] * (ABNORMAL) Hemoglobin A1c (04/16/2023 7:06 AM CDT) Hgb A1C 6.5(H) 4.0 - 5.6 % [facility] Estimated Average Glucose 140 mg/dL [facility] Comment: The ADA recommends reporting an estimated Average Glucose (eAG) with all Hemoglobin A1c results using the equation derived from a study of 507 normal and diabetic adults. Minority populations were underrepresented and children were not included. (Diabetes Care 31:3399-4507, 2008). The eAG is not equivalent to a fasting glucose. Blood 04/16/2023 7:06 AM CDT 04/16/2023 7:45 AM CDT Amilcar Estrada MD LAB BLOOD ORDERABLES Final Re sult Performing Organization Address [facility] de Phone Number [facility] [address] [place] [address] from Last 3 Months or Most Recently Relevant to Health Maintenance Insurance MEDICARE ID[place] MEDICARE Advance Directives For more information, please contact: [phone] Documents on File Type Date Recorded Patient Glazing Department Supervisor Expl anation ADVANCE DIRECTIVE 04/23/2023 12:11 PM Breana r of Landscaper Helper-Medical ADVANCE DIRECTIVE 04/23/2023 12:11 PM POLS T [...] Relationship Healthcare Agent Relationship Communication Kianna Nunez [facility] Care Agent [email or web address] Suellenjim Resendiz [facility] Care Agent [email or web address] Care Teams Enamel Drier Relationship Specialty Start Date End Date Cherise Patrick PA [address] [place] [address] PCP - General Physician Bean Sorter 02/20/23
--- OUTSIDE RECORDS SUMMARY | 2025-10-28 12:41 | XMS_ITS | Clinical Summary ---
Author Organization [facility] Address [address] [place] [address] Care Team Providers Care Lens Grinder Rough Name Role Phone Cherise Patrick PA-C Primary Care Provider Source Comments [facility],non-owned Affiliates and Associated Physician Practices is amultiple site organization consisting of ambulatory clinics and hospital sitesin [place], [place], [place] and [place]. This disclosure is being madepursuant to the Care Everywhere program and may not contain all information available regarding this patient. Last updated 18.[employer] [facility] Allergies No known active allergies Medications * [...] Reported on 08/27/2024 Blood Glucose Monitoring Suppl (Nitch Verio Reflect) w/Device KITIndications: CALL AUSTYN WHEN [...] Recorded PHQ2 TOTAL SCORE 0 06/10/2023 [facility] of Occupat ional Health - Occupational Stress [...] in a longterm (including now)? 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 MARTINEZ Kit Durathane Drflw Embosafe Chrnc Dlys Implanted:Qty: 1 on 08/06/2024 by Artie Harmon MD at [place] [facility] Left: Chest Wall [employer] 07/03/2026 [id number] / / [id number] Description:Implanted in the left chest wall, via the [facility], by Dr. Candy Harmon. Kit Durathane Drflw Embosafe Chrnc Dlys Implanted:Qty: 1 on 03/18/2025 by Rio Monk MD at [facility] [employer] 12/03/2026 [id number] / / [id number] Procedures Procedure Name Priority Date/Time Associated Diagnosis [...] 7.4(H) <=5.6 % 08/29/2024 8:36 AM CDT [facility] Estimated Average Glucose 166 mg/dL 08/29/2024 8:36 AM CDT [facility] Comment: HbA1c Interpretation: Normal : < 5.7% Pre-diabetes: 5.7-6.4% Diabetes: Equal to or greater than 6.5% Test results diagnostic of diabetes should be repeated for confirmation. Treatment target values recommended by ADA and other clinical organizations should be used to evaluate metabolic control in patients. Reference: [place] Diabetes Association, Standards of Care in Diabetes [...] ORDERABLES Fin al Result Performing Organization Address City/[facility]/ZIP Co de Phone Number [address] [address], [facility] [phone] * HEPATITIS C AB SCREEN RFLX NAAT QUANT (05/31/2024 6:38 PM CDT) Pathologist [facility] Hepatitis C Antibody Non-react talia Non-reac tive 05/31/2024 7:33 PM CDT [facility] Comment:Hepatitis C Antibody screen indicates no [...] [facility]/ZIP Co de Phone Number [address] [address], [place] [phone] * HIV-1 HIV-2 ANTIBODY + HIV P24 AG PANEL (02/24/2024 8:57 AM CDT) HIV Antigen/Antibod y 1 & 2 Non-reacti ve Non-react talia 02/24/2024 10:03 AM CDT [facility] Comment:No Laboratory eviden ce of HIV infection. Blood BLOOD SPECIMEN / Unknown Lab Venipuncture / Unknown 02/24/2024 8:57 AM CDT 02/24/2024 9:00 AM CDT us Rafa Patel MD LAB - CHEMISTRY ORDERABLES Final Result [facility] [address] [place] [address], [facility] [phone] from Last 3 Months or Most Recently [...] 2:41 AM 05/23/2023 7:59 PM Care Teams Lens Grinder Rough Relationship Specialty Start Date End Date Cherise Patrick PA-C [address] [place] [phone] PCP - General 02/23/24
--- OUTSIDE RECORDS SUMMARY | 2025-10-28 12:41 | XMS_ITS | Clinical Summary ---
Author Organization [facility] Address [address] [place] [address] Care Team Providers Care Cardiovascular Disease Specialist Name Role Phone None, Provider MD Primary [...] 03/03/23 +MRSA Right leg 07/30/2022 03/03/2023 Insurance [facility] MEDICAID C/O PROVIDER SERVICES TOÑITO RAMIREZ [id number] [employer]BACK MEDICAID Advance Directives * Full Code (Latest Code Status on File) Date Activated Date Inactivated Comments 07/31/2022 11:49 PM 08/07/2022 11:08 PM * Full Code Date Activated Date Inactivated Comments 07/29/2022 9:44 PM 07/31/2022 11:49 PM Care Teams Cardiovascular Disease Specialist Relationship Specialty Start Date End Date None, Provider, PCP - General 07/29/22
--- NOTE | 2025-10-28 12:45 | ED_ITS ---
HPI - Chest Pain General Chief Complaint: Chest Pain Stated Complaint: cp at dialysis Time Seen by Provider: 10/28/25 12:36 Source: patient Mode of arrival: ambulatory Limitations: no limitations History of Present Illness HPI narrative: This is a 35-year-old female with history of ESRD on dialysis, diabetes, sickle cell, hypertension, CHF who presents to the ED for chest pain. Patient states that she was at dialysis when she began to have some chest heaviness. She is unsure of how long she got through dialysis but states she started around 730 and she arrived around 11 30. States that she has been exposed to her sister who had similar symptoms this week. Denies fevers, chills. She has had a nonproductive cough. Denies shortness of breath Related Data Home Medications ?Medication ?Instructions ?Recorded ?Confirmed ?Last Taken ?Type amlodipine 10 mg tablet 10 mg PO DAILY 08/04/2304/2703/27/25 History carvedilol 12.5 mg tablet 25 mg PO Q12H 08/04/2308/0803/27/25 History furosemide 40 mg tablet 40 mg PO DAILY 05/16/2404/2703/27/25 History apixaban 5 mg tablet (Eliquis) 5 mg PO BID 11/10/2403/27/25 History Allergies Allergy/AdvReac Type Severity Reaction Status Date / Time ceftriaxone (From Rocephin) Allergy Severe Other Verified 10/28/25 12:47 hydrocodone Allergy Mild Hives Verified 10/28/25 12:47 oxycodone Allergy Mild Hives Verified 10/28/25 12:47 Review of Systems 2 Review of Systems: All systems reviewed & are unremarkable except as noted in HPI and below PMFSH Past Medical History Medical History 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 Septic arthritis of shoulder, left (05/2024) Diastolic heart failure secondary to hypertension EF 70% with grade 2 diastolic dysfunction echocardiogram August 2023 Anemia in chronic kidney disease End-stage renal disease on hemodialysis Hemodialysis initiated August 2023 Glaucoma Blind in both eyes (~03/2023) Occurred acutely March 2023 Diabetic neuropathy Hyperlipidemia Chronic heel ulcer Chronic heel ulcer on the left foot developed November 2022 with acute decompensation and subsequent above the knee amputation, now with a persistent right heel ulcer since the fall of 2022. Hypertension Surgical History Surgical History History of left above knee amputation Due to osteomyelitis. History of cataract extraction Status post insertion of dialysis catheter (08/2023) Right subclavian Family History Family History Father Diabetes mellitus Hypertension Mother Hypertension Obesity Sibling Diabetes mellitus, Onset Age: 28 Sibling Unknown family medical history Does not see a doctor Diabetes mellitus Social History Social History Social History: Rare tobacco use. No alcohol or drug use. No pets. Lives with sister. Surrogate decision maker: Kianna Nunez, sister ([phone]). Code status: Full code. Smoking status: Never smoker Additional smoking assessment comments: never smoked cigarettes Alcohol intake: never Drinks per week: 0 Substance use: never Substance use type: does not use Lack of Transportation: No Lack of Food: Never True Current Housing: I Have Housing Concerned About Future Housing: No Difficulty Paying Gas/Electric Bills: No Difficulty Paying for Meds: YES Currently Unemployed: No Education: High School Diploma/GED Difficulty w/ Childcare or Family Care: No Additional living arrangements comments: Lives with sister in [place]. 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 Spiritual care concerns: No Exam 2 Narrative: APPEARANCE: No acute distress, nontoxic, resting in bed HEENT: Normocephalic, atraumatic, OMM RESPIRATORY: No respiratory distress Clear to auscultation bilaterally with no rhonchi wheezing or rales. CARDIOVASCULAR: Regular rate and rhythm without murmurs rubs or gallops. TDC to the left upper chest, no surrounding drainage or erythema. ABDOMINAL: Soft, nontender, nondistended, no rebound or guarding MUSCULOSKELETAl: Moves all extremities. No clubbing, cyanosis or edema. NEURO: Awake and alert. Following commands, speech normal, no focal deficits SKIN:: Warm, dry. No rashes lesions or abrasions PSYCHIATRIC: Normal affect/mood, Course Vital Signs Vital signs: Vital Signs Temperature 98.1 F 10/28/25 10:59 Pulse Rate 85 10/28/25 10:59 Respiratory Rate 16 10/28/25 10:59 Blood Pressure 144/91 H 10/28/25 10:59 Pulse Oximetry 100 10/28/25 10:59 Oxygen Delivery Room Air 10/28/25 10:59 Temperature 98.1 F 10/28/25 10:59 Pulse Rate 87 10/28/25 14:16 Respiratory Rate 16 10/28/25 14:16 Blood Pressure 137/88 10/28/25 14:16 Pulse Oximetry 98 10/28/25 14:16 Oxygen Delivery Room Air 10/28/25 12:42 MDM MDM Narrative Medical decision making narrative: 35-year-old female Presenting for chest pain. On initial evaluation patient was in no acute distress afebrile, hemodynamic stable. Differentials include but are not limited to: ACS, PE, PNA, bronchitis, costochondritis, pleurisy, viral syndrome, GERD Notable exam findings: Heart and lungs clear, tenderness palpation to the anterior chest wall over the sternum, no crepitus I personally reviewed the patient's lab result. Notable lab findings: Leukocytosis of 14.4 which is her baseline. CMP consistent with her ESR D, no need for urgent dialysis. I personally reviewed the patient's images and interpret as follows: Chest x- ray: Normal cardiac silhouette, no consolidations, no pleural effusions, no pulmonary vascular congestion, chronic interstitial changes I personally reviewed the patient's EKGs: Normal sinus rhythm rate of 90, borderline left axis deviation, with atrial enlargement, no acute ST or T-wave changes Repeat EKG: Normal sinus rhythm rate of 86, per orally left axis deviation, left atrial enlargement, no acute ST or T-wave changes, no change from earlier Patient was given Lidoderm and have mild improvement of her symptoms. Patient's EKGs and labs are without significant high risk changes. Cardiac risk factors reviewed. Patient is felt likely low risk for ACS and reasonable for further risk stratification testing as an outpatient. Pain was not sudden or maximal in onset without tearing or ripping quality. No other signs of symptoms suggest aortic dissection. No pneumonia seen on evaluation today. Patient is felt to be a reasonable candidate for continued evaluation as an outpatient. Differential Diagnosis Differential Diagnosis: ACS, PE, PNA, bronchitis, costochondritis, pleurisy, viral syndrome, GERD Lab Data 10/28/25 11:14 10/28/25 11:14 Labs: Lab Results 10/28/25 10/28/25 10/28/25 Range/Units 11:14 12:49 13:56 WBC 14.4 H (4.5-10.0) K/mm3 RBC 4.11 L (4.2-5.4) M/mm3 Hgb 12.3 (12.0-15.0) g/dL Hct 40.8 (37.0-47.0) % MCV 99.3 (80-100) fl MCH 29.9 (26-34) pg MCHC 30.1 L (32-36) g/dl RDW 14.1 (11.5-14.5) % Plt Count 401 H (150-375) k/mm3 MPV 9.3 (7.4-10.4) fl Immature Gran % (Auto) 0.8 H (0-0.5) % Neut % (Auto) 72.0 (45.5-73.1) % Lymph % (Auto) 16.6 L (18.3-44.2) % [place] % (Auto) 5.5 (2.6-8.5) % Eos % (Auto) 4.6 H (0-4.4) % Baso % (Auto) 0.5 (0.2-1.2) % Lymph # (Auto) 2.39 (0.9-3.2) K/mm3 [place] # (Auto) 0.8 H (0.1-0.6) K/mm3 Eos # (Auto) 0.7 H (0-0.3) K/mm3 Baso # (Auto) 0.1 (0.0-0.1) K/mm3 Abs Immat Gran (auto) 0.11 H (0.00-0.031) K/mm3 Absolute Neuts (auto) 10.4 H (1.3-6.7) K/mm3 Absolute Nucleated RBC 0.020 H (0.0-0.012) K/mm3 Nucleated RBC % 0.1 (0.0-0.2) % PT 13.9 (11.1-14.7) Seconds INR 1.1 APTT 50.2 H (22.3-36.8) Seconds Sodium 136 L (137-145) mmol/L Potassium 4.4 (3.4-5.0) mmol/L Chloride 108 H (98-107) mmol/L Carbon Dioxide 16 L (22-30) mmol/L Anion Gap 12 (4-12) mmol/L BUN 38 H D (7-17) mg/dL Creatinine 6.36 H (0.7-1.0) mg/dL Estim Creat Clear Calc 16 ml/min Estimated GFR 8 L (59 - ) Glucose 186 H (65-110) mg/dL Calcium 8.7 (8.4-10.2) mg/dL Total Bilirubin 0.3 (0.2-1.3) mg/dL AST 17 (14-36) U/L ALT 14 (6-35) U/L Alkaline Phosphatase 127 H (38-126) U/L Troponin I < 0.012 < 0.012 (0.000-0.034) ng/mL Total Protein 8.5 H (6.3-8.2) g/dL Albumin 4.1 (3.5-5.1) g/dL Lipase 137 (23-300) U/L Influenza A (RT-PCR) Negative (Negative) Influenza B (RT-PCR) Negative (Negative) RSV (RT-PCR) Negative (Negative) SARS-CoV-2 RNA (RT-PCR) Negative (Negative) Imaging Data Radiologist's impression: ITS Impressions Chest X-Ray 10/28/25 12:19 IMPRESSION: 1. No acute cardiopulmonary findings. Discharge Plan Discharge Clinical Impression: Chest pain Qualifiers: Chest pain type: precordial pain Qualified Code(s): R07.2 - Precordial pain Patient Disposition: Home Condition: Stable Instructions: Antibiotic Form, Chest Wall Pain (ED) Additional Instructions: Take Tylenol for your pain. You were also given a prescription for Lidoderm and Flexeril, take these as prescribed. Follow-up with your PCP in the next week for re-evaluation. Return the ED for any new worsening symptoms. Patient Language: [place] Prescriptions: New cyclobenzaprine 10 mg tablet 10 mg PO HS PRN (Reason: muscle spasm) Qty: 30 0RF lidocaine [Lidoderm] 5 % adhesive patch,medicated 1 patch topical DAILY Qty: 15 0RF Rx Instructions: leave on most painful area for up to 12 hrs No Action carvedilol 12.5 mg tablet 25 mg PO Q12H amlodipine 10 mg tablet 10 mg PO DAILY lisinopril 20 mg Tablet 20 mg PO QAM 30 Days Qty: 30 0RF furosemide 40 mg Tablet 40 mg PO DAILY (DME) blood-glucose meter [OneTouch Verio Flex meter] Misc Qty: 1 0RF Rx Instructions: May substitute to in-stock meter and/or covered by insurance. Use As Directed (DME) OneTouch Verio test strips Strip Qty: 1 0RF Rx Instructions: May substitute to in-stock and/or covered by insurance strips. Use As Directed (DME) pen needle, diabetic 32 gauge x 5/32 Needle Qty: 1,200 0RF Rx Instructions: As Directed (DME) lancets [Diligent Board Member ServicesTouch Delica Plus Lancet] 30 gauge misc Qty: 1 0RF Rx Instructions: May substitute to in-stock and/or covered by insurance lancets. Use As Directed insulin aspart U-100 100 unit/mL (3 mL) insulin pen 1 sliding scale dose subcut USEASDIRECTD Qty: 15 0RF Rx Instructions: Rx Instructions: <70-Follow Hypoglycemic protocol 70-200: No addition Insulin 201-250: 3 U 251-300: 4 U 301-350: 5 U 351-400: 6 U >400: Call atorvastatin 20 mg Tablet 20 mg PO DAILY Qty: 30 1RF aspirin [Children's Aspirin] 81 mg Tablet,Chewable 81 mg PO DAILY@0800 Qty: 30 1RF doxycycline hyclate 100 mg Tablet 100 mg PO Q12HR Qty: 5 0RF insulin aspart U-100 100 unit/mL (3 mL) insulin pen 10 unit subcut BIDWM Qty: 15 1RF Rx Instructions: Before breakfast and before dinner. Hold if meal is skipped. insulin aspart U-100 100 unit/mL (3 mL) insulin pen 7 unit subcut .noon Qty: 15 1RF Rx Instructions: Hold if not eating lunch Minerin Creme Cream 1 applic topical DAILY Qty: 113 0RF Rx Instructions: Apply to right leg intact skin (do not use on open wounds) insulin glargine [Lantus Solostar U-100 Insulin] 100 unit/mL (3 mL) insulin pen 40 unit subcut QAM Qty: 15 0RF levofloxacin 500 mg tablet 500 mg PO ONCE Qty: 1 0RF Rx Instructions: Take one dose of Levofloxacin on Jul 07 to complete abx course Eliquis 5 mg tablet 5 mg PO BID Follow-up/Referrals: Darnell,TOÑITO Luong [Primary Care Provider, Unknown]
[2025-10-28] MEDS: ACETAMINOPHEN 500 MG TABLET 1000 MG PO (12:56)
[2025-10-28] MEDS: LIDOCAINE 5% PATCH 1 PATCH TRANSDERM (12:56)
[2025-10-28 13:34] LABS: Influenza A QL RT-PCR Negative (Negative); Influenza B QL RT-PCR Negative (Negative); RSV RNA, RT-PCR Negative (Negative); SARS-CoV-2 RNA PCR Negative (Negative)
--- NOTE | 2025-10-28 14:05 | ECG_ITS ---
Test Date: 2025-10-28 14:24:20 Measurements Intervals [place] Rate: 86 P: 30 VA: 183 QRS: -22 QRSD: 94 T: 9 QT: 376 QTc: 452 Interpretive Statements SINUS RHYTHM POSSIBLE LEFT ATRIAL ENLARGEMENT DELAYED PRECORDIAL R/S TRANSITION BORDERLINE ECG Compared to ECG 10/28/2025 11:04:19 No significant changes Electronically Signed On 10-28-2025 20:02:14 SPRAY MACHINE TENDER by Azar Cook D.O.
[2025-10-28 14:34] LABS: Troponin I < 0.012 ng/mL (0.000-0.034)
== END 2025-10-28 16:42 | disposition home or self-care (01) ==
PROVIDERS: Emergency Medicine; Emergency Provider Student in an Organized Health Care Education/Training Program; PCP Physician Assistant
DX: R07.2 Precordial pain (principal); Z20.822 Contact with and (suspected) exposure to COVID-19; E11.22 Type 2 diabetes mellitus with diabetic chronic kidney disease; I13.2 Hypertensive heart and chronic kidney disease with heart failure and with stage 5 chronic kidney disease, or end stage renal disease; I50.30 Unspecified diastolic (congestive) heart failure; N18.6 End stage renal disease; Z99.2 Dependence on renal dialysis; D63.8 Anemia in other chronic diseases classified elsewhere; D57.1 Sickle-cell disease without crisis; E11.39 Type 2 diabetes mellitus with other diabetic ophthalmic complication; H42 Glaucoma in diseases classified elsewhere; E11.40 Type 2 diabetes mellitus with diabetic neuropathy, unspecified; E78.5 Hyperlipidemia, unspecified; G47.33 Obstructive sleep apnea (adult) (pediatric); Z86.14 Personal history of Methicillin resistant Staphylococcus aureus infection; Z89.612 Acquired absence of left leg above knee; Z98.49 Cataract extraction status, unspecified eye; R94.31 Abnormal electrocardiogram [ECG] [EKG]; Z79.4 Long term (current) use of insulin; Z79.899 Other long term (current) drug therapy; Z79.82 Long term (current) use of aspirin; Z79.01 Long term (current) use of 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
CPT/HCPCS: 36415; 71046; 80053; 83690; 84484; 85025; 85610; 85730; 87637; 93005; 99284; A9270